=== PATIENT | female | born 1985 | race Caucasian/White ===

== ENCOUNTER 2023-04-27 13:56 | Emergency (ER) | payer BC, SELFPAY ==
[2023-04-27 14:06] VITALS: BP 128/94; PULSE 132; RESP 24; TEMP 36.6; O2SAT 98; BMI 30.8
--- NOTE | 2023-04-27 14:17 | US_ITS ---
[address] [address] Patient Name: ANTONIA DE LOS SANTOS MRN: [id number] date: 1985 Sex: F Assigned Patient Location: ER Current Patient Location: ER Accession/Order Number: [id number] Exam Date: 04/27/2023 14:30 Report Date: 04/27/2023 15:28 At the request of: HARRISON MIN Procedure: US pelvis transvaginal EXAM: Pelvic ultrasound ultrasound CLINICAL INDICATION: Left ovarian torsion. COMPARISON: Ultrasound dated 07/28/2022 TECHNIQUE: Transvaginal pelvic ultrasound was performed with grayscale and color Doppler images were obtained. FINDINGS: Uterus: Uterus measures 7.1 x 5.0 x 3.8 cm. No abnormal uterine masses. Endometrium measures 8 mm thickness. Right ovary: Measures 2.7 x 1.7 x 2.4 cm. Normal color flow and Doppler arterial and venous waveforms. No ovarian masses. 1.6 cm dominant right ovarian follicle. 2.1 cm left ovarian cyst. Left ovary: Measures 3.5 x 1.3 x 2.5 cm. Normal color flow and Doppler arterial and venous waveforms. No ovarian masses. No free fluid in the pelvis. US/US pelvis transvaginal IMPRESSION: No acute sonographic abnormalities in the pelvis. Electronically authenticated by: GERALD SCALES Date: 04/27/2023 15:28
--- NOTE | 2023-04-27 14:19 | ED_ITS ---
HPI - Abdominal Pain General Chief Complaint: Abdominal Pain Stated Complaint: ABDOMINAL PAIN Time Seen by Provider: 04/27/23 14:02 Source: patient Mode of arrival: walk-in Limitations: no limitations History of Present Illness HPI narrative: patient is a 38 year old female who presents to the emergency department for a one hour history of pain in the left lower quadrant. She states she has a history of ovarian cyst and has required surgery for ruptured ovarian cyst three times in the past. Most recent surgery was three years ago. she currently sees an [employer] at the [facility]. She denies fevers, chills, vomiting, diarrhea. She has had no urinary symptoms. Pain is in the left lower quadrant radiating to the left flank. She states this pain is similar to ovarian cyst pain she has had in the past. Patient is visibly uncomfortable at initial interview. Related Data Previous Rx's Medication Instructions Recorded hydrocodone 5 mg-acetaminophen 325 1 tab PO Q4H PRN pain #12 tabs 04/27/23 mg tablet ketorolac 10 mg tablet 10 mg PO TID PRN pain #10 tabs 04/27/23 ondansetron 4 mg disintegrating 4 mg PO Q6H PRN nausea and 04/27/23 tablet vomiting #12 tabs Allergies Allergy/AdvReac Type Severity Reaction Status Date / Time morphine Allergy Severe Verified 04/27/23 14:06 Review of Systems ROS Constitutional Denies: fever or chills Cardiovascular Denies: chest pain Respiratory Denies: shortness of breath or cough Gastrointestinal Reports: abdominal pain; Denies: nausea, vomiting or diarrhea Genitourinary Denies: painful urination Musculoskeletal Reports: back pain Integumentary/Breast Denies: rash Neurological Denies: headache PFSH PFSH Social History Smoking status: Never smoker Exam Narrative Exam Narrative: Gen.: Awake, alert, in no distress Head: Normocephalic, atraumatic ENT: Moist mucous membranes Respiratory: No respiratory distress Gastrointestinal: Abdomen is soft, nondistended and moderately tender in the left lower quadrant with voluntary guarding, left flank tenderness with no CVA tenderness Extremities: Moves extremities equally Psych: Normal mood and affect Neuro: No focal neuro deficit Skin: Warm, dry, intact Constitutional Vital Signs, click to edit/add: Last Vital Signs Temp 97.9 F 04/27/23 14:06 Pulse 99 H 04/27/23 15:37 Resp 20 04/27/23 15:37 BP 120/83 04/27/23 15:37 Pulse Ox 98 04/27/23 15:37 O2 Del Method Room Air 04/27/23 14:06 Course Vital Signs Vital signs: Vital Signs Temperature 97.9 F 04/27/23 14:06 Pulse Rate 132 H 04/27/23 14:06 Respiratory Rate 24 04/27/23 14:06 Blood Pressure 128/94 H 04/27/23 14:06 Pulse Oximetry 98 04/27/23 14:06 Oxygen Delivery Method Room Air 04/27/23 14:06 Temperature 97.9 F 04/27/23 14:06 Pulse Rate 99 H 04/27/23 15:37 Respiratory Rate 20 04/27/23 15:37 Blood Pressure 120/83 04/27/23 15:37 Pulse Oximetry 98 04/27/23 15:37 Oxygen Delivery Method Room Air 04/27/23 14:06 MDM - Abdominal Pain MDM Narrative Medical decision making narrative: lab studies, urine specimen and test all negative. Patient with improved vital signs after IV fluids, Dilaudid, Toradol, Zofran. Ultrasound shows no evidence of ovarian torsion with good blood flow to both ovaries and a 2.1 cm complex cyst in the left ovary. Patient remedicated for pain and will be discharged home to follow-up with [employer]. Patient reexamined by attending physician prior to discharge, abdomen is soft and benign. Return to the Emergency Room if symptoms change or worsen. Medical Records Attestation: I reviewed the patient's medical records. Lab Data Attestation: I reviewed the patient's lab results. Labs: Lab Results 04/27/23 04/27/23 Range/Units 14:20 14:45 WBC 5.7 (4.0-11.0) 10^3/uL RBC 3.77 L (4.20-5.40) 10^6/uL Hgb 11.1 L (12.0-16.0) g/dL Hct 31.5 L (36.0-48.0) % MCV 83.6 (81.0-99.0) fL MCH 29.4 (26.7-34.0) pg MCHC 35.2 (29.9-35.2) g/dL RDW 17.4 H (11.0-15.0) % Plt Count 408 (150-450) 10^3/uL MPV 9.8 (9.5-13.5) fL Neut % (Auto) 44.4 (43.0-75.0) % Lymph % (Auto) 47.3 (20.5-60.0) % [place] % (Auto) 6.5 (1.7-12.0) % Eos % (Auto) 1.1 (0.9-7.0) % Baso % (Auto) 0.5 (0.2-2.0) % Neut # (Auto) 2.5 (1.4-6.5) 10^3/uL Lymph # (Auto) 2.7 (1.2-3.8) 10^3/uL [place] # (Auto) 0.4 (0.3-0.8) 10^3/uL Eos # (Auto) 0.1 (0.0-0.7) 10^3/uL Baso # (Auto) 0.0 (0.0-0.1) 10^3/uL Abs Immat Gran (auto) 0.01 (0.00-0.03) 10^3/uL Imm/Tot Granulo (auto) 0.2 (0.0-0.5) % Sodium 138 (136-145) mmol/L Potassium 3.5 (3.5-5.1) mmol/L Chloride 103 (98-107) mmol/L Carbon Dioxide 23.4 (21.0-32.0) mmol/L Anion Gap 15.1 BUN 4.0 L (7.0-18.0) mg/dL Creatinine 0.86 (0.55-1.02) mg/dL Est GFR ( Amer) >60 (>=60) Est GFR (Non-Af Amer) >60 (>=60) BUN/Creatinine Ratio 4.7 Glucose 112 H (74-106) mg/dL Lactate 1.9 (0.4-2.0) mmol/L Calcium 8.8 (8.5-10.1) mg/dL Total Bilirubin 0.5 (0.2-1.0) mg/dL AST <5 L (15-37) U/L ALT 10 L (14-59) U/L Alkaline Phosphatase 69 (46-116) U/L Total Protein 7.8 (6.4-8.2) g/dL Albumin 3.7 (3.4-5.0) g/dL Globulin 4.1 g/dL Albumin/Globulin Ratio 0.9 Serum HCG, Qual Negative (NEGATIVE) Urine Color Lt. yellow (YELLOW) Urine Clarity Clear (CLEAR) Urine pH 6.0 (5.0-9.0) Ur Specific [place] 1.010 (1.005-1.025) Urine Protein Negative (NEG/TRACE) mg/dL Urine Glucose (UA) Negative (NEGATIVE) mg/dL Urine Ketones Negative (NEGATIVE) mg/dL Urine Occult Blood Negative (NEGATIVE) Urine Nitrite Negative (NEGATIVE) Urine Bilirubin Negative (NEGATIVE) Urine Urobilinogen 2.0 A (0.2-1.0) EU/dL Ur Leukocyte Esterase Negative (NEGATIVE) Imaging Data US - abdomen: Attestation: I have reviewed the pertinent imaging results. Radiologist's impression: Procedure: US pelvis transvaginal EXAM: Pelvic ultrasound ultrasound CLINICAL INDICATION: Left ovarian torsion. COMPARISON: Ultrasound dated 07/28/2022 TECHNIQUE: Transvaginal pelvic ultrasound was performed with grayscale and color Doppler images were obtained. FINDINGS: Uterus: Uterus measures 7.1 x 5.0 x 3.8 cm. No abnormal uterine masses. Endometrium measures 8 mm thickness. Right ovary: Measures 2.7 x 1.7 x 2.4 cm. Normal color flow and Doppler arterial and venous waveforms. No ovarian masses. 1.6 cm dominant right ovarian follicle. 2.1 cm left ovarian cyst. Left ovary: Measures 3.5 x 1.3 x 2.5 cm. Normal color flow and Doppler arterial and venous waveforms. No ovarian masses. No free fluid in the pelvis. IMPRESSION: No acute sonographic abnormalities in the pelvis. Electronically authenticated by: GERALD SCALES Date: 04/27/2023 15:28 Discharge Plan Discharge Chief Complaint: Abdominal Pain Clinical Impression: Complex cyst of left ovary, Abdominal pain Patient Disposition: Home, Self-Care Time of Disposition Decision: 16:00 Condition: Good Mode of Transportation: Private Vehicle Prescriptions / Home Meds: New hydrocodone-acetaminophen 5-325 mg tablet 1 tab PO Q4H PRN (Reason: pain) Qty: 12 0RF Rx Instructions: DX R10.2 ketorolac 10 mg tablet 10 mg PO TID PRN (Reason: pain) Qty: 10 0RF ondansetron 4 mg tablet,disintegrating 4 mg PO Q6H PRN (Reason: nausea and vomiting) Qty: 12 0RF Instructions: Ovarian Cyst (ED), Abdominal Pain (ED) Additional Instructions: Follow up with your [employer]DER Stand Alone Forms: Portal Instructions Referrals: Physician,Non-Staff, MD [Primary Care Provider] - 1 week
[2023-04-27] MEDS: KETOROLAC TROMETHAMINE 30 MG/ML VIAL IVP (14:27)
[2023-04-27] MEDS: 0.9 % SODIUM CHLORIDE 1,000 ML 999 ML IV (14:28)
[2023-04-27] MEDS: HYDROMORPHONE HCL 1 MG/ML CARTRIDGE IV (14:28)
[2023-04-27] MEDS: ONDANSETRON PF 4 MG/2 ML VIAL IV (14:28)
[2023-04-27 14:39] LABS: Basophils Percent Auto 0.5 % (0.2-2.0); Eosinophils Absolute Auto 0.1 10^3/uL (0.0-0.7); Eosinophils Percent Auto 1.1 % (0.9-7.0); Hematocrit 31.5 % (36.0-48.0); Hemoglobin 11.1 g/dL (12.0-16.0); Immature Granulocytes Abs Auto 0.01 10^3/uL (0.00-0.03); Immature Granulocytes Pct Auto 0.2 % (0.0-0.5); Lymphocytes Absolute Auto 2.7 10^3/uL (1.2-3.8); Lymphocytes Percent Auto 47.3 % (20.5-60.0); Mean Corpuscular HGB Conc 35.2 g/dL (29.9-35.2); Mean Corpuscular Hemoglobin 29.4 pg (26.7-34.0); Mean Corpuscular Volume 83.6 fL (81.0-99.0); Mean Platelet Volume 9.8 fL (9.5-13.5); Monocytes Absolute Auto 0.4 10^3/uL (0.3-0.8); Monocytes Percent Auto 6.5 % (1.7-12.0); Neutrophils Absolute Auto 2.5 10^3/uL (1.4-6.5); Neutrophils Percent Auto 44.4 % (43.0-75.0); Platelet Count 408 10^3/uL (150-450); Red Blood Count 3.77 10^6/uL (4.20-5.40); Red Cell Distribution Width 17.4 % (11.0-15.0); White Blood Count 5.7 10^3/uL (4.0-11.0)
[2023-04-27 14:50] LABS: Lactate/Lactic Acid 1.9 mmol/L (0.4-2.0)
[2023-04-27 14:51] LABS: HCG Qualitative NEGATIVE (NEGATIVE)
[2023-04-27 14:57] LABS: Alanine Aminotransferase 10 U/L (14-59); Albumin Globulin Ratio 0.9; Albumin Level 3.7 g/dL (3.4-5.0); Alkaline Phosphatase 69 U/L (46-116); Anion Gap 15.1; Aspartate Amino Transferase <5 U/L (15-37); BUN Creatinine Ratio 4.7; Bilirubin Total 0.5 mg/dL (0.2-1.0); Calcium 8.8 mg/dL (8.5-10.1); Carbon Dioxide 23.4 mmol/L (21.0-32.0); Chloride 103 mmol/L (98-107); Estimated GFR (African America >60 (>=60); Estimated GFR (Non-African Ame >60 (>=60); Globulin 4.1 g/dL; Glucose 112 mg/dL (74-106); Potassium 3.5 mmol/L (3.5-5.1); Sodium 138 mmol/L (136-145); Total Protein 7.8 g/dL (6.4-8.2)
[2023-04-27 15:17] LABS: Bilirubin Urine NEGATIVE (NEGATIVE); Blood Urine NEGATIVE (NEGATIVE); Clarity Urine CLEAR (CLEAR); Color Urine LT. YELLOW (YELLOW); Glucose Urine UA NEGATIVE (NEGATIVE); Ketones Urine NEGATIVE (NEGATIVE); Leukocyte Esterase Urine NEGATIVE (NEGATIVE); Nitrite Urine NEGATIVE (NEGATIVE); Protein Urine NEGATIVE (NEG/TRACE)
[2023-04-27 15:19] LABS: Urine Microscopic Indicated NO
[2023-04-27] MEDS: HYDROMORPHONE HCL 0.5 MG/0.5 ML SYRINGE IV (15:35)
[2023-04-27 15:37] VITALS: BP 120/83; PULSE 99; RESP 20; O2SAT 98
== END 2023-04-27 16:09 | disposition home or self-care (01) ==
PROVIDERS: Physician Assistant; Emergency Provider Emergency Medicine
DX: N83.292 Other ovarian cyst, left side (principal); R10.32 Left lower quadrant pain
CPT/HCPCS: 36415; 76830; 80053; 81003; 83605; 84703; 85025; 96374; 96375; 96376; 99285; J1170

== ENCOUNTER 2023-05-04 18:39 | Emergency (ER) | payer BC, SELFPAY ==
[2023-05-04 18:43] VITALS: BP 135/88; PULSE 111; RESP 20; TEMP 36.6; O2SAT 98; BMI 30.8
--- NOTE | 2023-05-04 20:23 | ED.DENTAL1 ---
HPI - Dental/Oral General Chief complaint: Dental/Oral Stated complaint: DENTAL PAIN Time Seen by Provider: 05/04/23 20:23 Source: patient Mode of arrival: walk-in Limitations: no limitations History of Present Illness HPI Narrative: 38 year old female presents to the ED for right lower dental pain. Onset was 2-3 days ago. It became worse today. She has tried Tylenol and Motrin without relief. She has a dentist appointment next week. Denies fever, chills, injury, SOB, difficulty swallowing. Rates her pain 01/20. Denies chance of . Related Data Previous Rx's Medication Instructions Recorded hydrocodone 5 mg-acetaminophen 325 1 tab PO Q4H PRN pain #12 tabs 04/27/23 mg tablet ketorolac 10 mg tablet 10 mg PO TID PRN pain #10 tabs 04/27/23 ondansetron 4 mg disintegrating 4 mg PO Q6H PRN nausea and 04/27/23 tablet vomiting #12 tabs hydrocodone 5 mg-acetaminophen 325 1 tab PO Q8H PRN pain 4 days #12 05/04/23 mg tablet tabs penicillin V potassium 500 mg 500 mg PO Q6H 10 days #40 tabs 05/04/23 tablet Allergies Allergy/AdvReac Type Severity Reaction Status Date / Time morphine Allergy Severe Verified 04/27/23 14:06 Review of Systems ROS Constitutional Denies: fever or chills Ears, nose, mouth, and throat Reports: other (Dental pain); Denies: throat pain or neck pain Cardiovascular Denies: chest pain Respiratory Denies: shortness of breath Integumentary/Breast Denies: rash Neurological Denies: headache PFSH PFSH Social History Smoking status: Never smoker Exam Constitutional Vital Signs, click to edit/add: Last Vital Signs Temp 97.8 F 05/04/23 18:43 Pulse 111 H 05/04/23 18:43 Resp 20 05/04/23 18:43 BP 135/88 05/04/23 18:43 Pulse Ox 98 05/04/23 18:43 O2 Del Method Room Air 05/04/23 18:43 Common normals: no apparent distress and oriented x3 General appearance: cooperative HENMT Face and sinus: normal facial exam Nose: external nose normal Mouth: oral and palatal mucosa normal, lip normal and tongue normal; no drooling Teeth and gingiva: caries and other (No drainable abscess noted. No swelling, drainage noted near teeth 30 & 31) Other: No facial swelling. No swelling to floor of mouth. Pt speaking in full sentences, handling secretions well. Eye Common normals: conjunctivae normal and no scleral icterus Neck & C-Spine Common normals: supple Chest Chest: symmetrical chest wall rise Respiratory Common normals: normal respiratory effort Effort & inspection: able to speak in complete sentences and symmetric chest movement Cardio Common normals: regular rate Neuro Common normals: oriented x3 and moves all extremities Sensorium/orientation: awake and alert Course Vital Signs Vital signs: Vital Signs Temperature 97.8 F 05/04/23 18:43 Pulse Rate 111 H 05/04/23 18:43 Respiratory Rate 20 05/04/23 18:43 Blood Pressure 135/88 05/04/23 18:43 Pulse Oximetry 98 05/04/23 18:43 Oxygen Delivery Method Room Air 05/04/23 18:43 Temperature 97.8 F 05/04/23 18:43 Pulse Rate 111 H 05/04/23 18:43 Respiratory Rate 20 05/04/23 18:43 Blood Pressure 135/88 05/04/23 18:43 Pulse Oximetry 98 05/04/23 18:43 Oxygen Delivery Method Room Air 05/04/23 18:43 MDM - Dental/Oral MDM Narrative Medical decision making narrative: OARRS was reviewed. Prescriptions were provided for PCN and norco. She has Motrin at home. She was medicated for her discomfort here. Follow up with the dentist next week as scheduled. Return precautions were discussed. Differential Diagnosis Differential diagnosis: Likely gingival abscess, dental caries, toothache and dental abscess Medical Records Attestation: I reviewed the patient's medical records. Discharge Plan Discharge Chief Complaint: Dental/Oral Clinical Impression: Toothache Patient Disposition: Home, Self-Care Time of Disposition Decision: 20:34 Condition: Good Mode of Transportation: Private Vehicle Prescriptions / Home Meds: New penicillin V potassium 500 mg tablet 500 mg PO Q6H 10 Days Qty: 40 0RF hydrocodone-acetaminophen 5-325 mg tablet 1 tab PO Q8H PRN (Reason: pain) 4 Days Qty: 12 0RF No Action hydrocodone-acetaminophen 5-325 mg tablet 1 tab PO Q4H PRN (Reason: pain) Qty: 12 0RF Rx Instructions: DX R10.2 ketorolac 10 mg tablet 10 mg PO TID PRN (Reason: pain) Qty: 10 0RF ondansetron 4 mg tablet,disintegrating 4 mg PO Q6H PRN (Reason: nausea and vomiting) Qty: 12 0RF Instructions: Toothache (ED) Additional Instructions: Follow up with your dentist next week as scheduled. Stand Alone Forms: Portal Instructions Referrals: Physician,Non-Staff, MD [Primary Care Provider] - 1 week Discharge Date/Time: 05/04/23 21:05
--- NOTE | 2023-05-04 20:37 | PC.NURSE ---
Patient states she has had right lower dental pain for 3 days. has called her dentist and they cannot get her in until the middle of next week. patient has also called her family physician. states she believes she has a cavity in the back bottom tooth.pain radiates to right ear and down right jaw. has tried tylenol, motrin, and Orajel with no relief. light swelling to lower right jaw. no broken teeth seen.
[2023-05-04] MEDS: PENICILLIN V POTASSIUM 250 MG TABLET 500 MG PO (21:03)
[2023-05-04] MEDS: KETOROLAC TROMETHAMINE 30 MG/ML VIAL IM (21:03)
[2023-05-04] MEDS: BENZOCAINE 30 ML, lidocaine HCL 15 ML MM (21:04)
== END 2023-05-04 21:05 | disposition home or self-care (01) ==
PROVIDERS: Emergency Provider Emergency Medicine
DX: K08.89 Other specified disorders of teeth and supporting structures (principal)
CPT/HCPCS: 99284

== ENCOUNTER 2023-05-07 22:44 | Emergency (ER) | payer BC, SELFPAY ==
[2023-05-07 23:01] VITALS: BP 128/88; PULSE 125; RESP 20; TEMP 36.7; O2SAT 100
--- NOTE | 2023-05-07 23:18 | CT_ITS ---
The [address] [address] Patient Name: ANTONIA DE LOS SANTOS MRN: [id number] date: 1985 Sex: F Assigned Patient Location: ER Current Patient Location: ER Accession/Order Number: [id number] Exam Date: 05/07/2023 23:59 Report Date: 05/08/2023 01:05 At the request of: ROB HAUSER Procedure: CT abdomen pelvis w con EXAM: CT abdomen pelvis w con HISTORY: left abd pain COMPARISON: CTPA 10/31/2020 TECHNIQUE: CT of abdomen and pelvis with intravenous contrast. Dose reduction techniques were achieved by using automated exposure control and/or adjustment of mA and/or kV according to patient size and/or use of iterative reconstruction technique. FINDINGS: TUBES AND IMPLANTS: None. LOWER CHEST: Small hiatal hernia. ABDOMEN and PELVIS ABDOMINAL WALL AND SOFT TISSUES: Unremarkable. BONES: No suspicious lesions. Multilevel degenerative changes of the spine. ARTERIES: No aortoiliac aneurysm VEINS: Unremarkable. LYMPH NODES: Unremarkable. PERITONEUM/ RETROPERITONEUM: Unremarkable. BOWEL: No obstruction APPENDIX: Unremarkable LIVER: No suspicious lesions. GALLBLADDER: Surgically absent BILE DUCTS: Not dilated SPLEEN: Unremarkable. PANCREAS: Unremarkable. ADRENALS: Unremarkable. KIDNEYS/ URETERS: Unremarkable. REPRODUCTIVE ORGANS: Bilateral ovaries demonstrate multiple cysts. Unremarkable appearance of the uterus URINARY BLADDER: Unremarkable. CT/CT abdomen pelvis w con IMPRESSION: No evidence of acute abdominopelvic process. Small hiatal hernia. Electronically authenticated by: DENNY NAJERA Date: 05/08/2023 01:05
--- NOTE | 2023-05-07 23:20 | ED.ABDPAIN1 ---
HPI - Abdominal Pain General Chief Complaint: Abdominal Pain Stated Complaint: Abdominal Pain Time Seen by Provider: 05/07/23 22:54 Source: patient Mode of arrival: walk-in History of Present Illness HPI narrative: Patient was diagnosed with 2cm left ovarian cyst on 04/27/23 when I saw the patient along with Shanae Rankin. She now returns to our ED complaining of continued pain in the same area. She has had no improvement after taking Calhoun and NSAIDs previously prescribed. Of note, she got a 4 days supply of Calhoun on 05/04/[address] Joseph. She told me that she sees a [employer]ISTANT [employer] in [place] and had ovarian cyst removal at [facility] with Dr Quesada, previously. She is not scheduled to see her [employer] until next month. She said that she previously saw Dr Hirsch and that he sent her to [facility] because the cyst was so large . It was determined that she has endometriosis, she told me. Related Data Home Medications Medication Instructions Recorded Confirmed alprazolam 0.25 mg tablet mg 05/07/23 citalopram 20 mg tablet mg 05/07/23 Previous Rx's Medication Instructions Recorded hydrocodone 5 mg-acetaminophen 325 1 tab PO Q4H PRN pain #12 tabs 04/27/23 mg tablet nabumetone 750 mg tablet 750 mg PO Q12H PRN pain #20 tabs 05/08/23 Allergies Allergy/AdvReac Type Severity Reaction Status Date / Time morphine Allergy Severe Verified 05/07/23 23:07 prochlorperazine AdvReac Mild Verified 05/07/23 23:07 [From Compazine] [facility] Social History Smoking status: Never smoker Exam Narrative Exam Narrative: Nurses notes and vital signs reviewed and patient is not hypoxic. afebrile General: Uncomfortable. Skin: Warm, dry, no pallor noted. No rash to abdomen. Eye: Pupils are equal, round and EOMI. No scleral icterus. Cardiovascular: Regular Rate and Rhythm without murmur, gallop or rub. Respiratory: No accessory muscle use or respiratory distress. Lungs are clear to auscultation, no wheezing, rales or rhonchi Back: No CVA tenderness Musculoskeletal: normal ROM GI: Abdomen is soft, non-distended. Normal bowel sounds. No masses appreciated. LLQ tenderness to palpation. No rebound, guarding, or rigidity noted. Neurological: A&O x4. No cranial nerve dysfunction observed. No truncal ataxia. Moves all extremities. Sensation intact. Psychiatric: Cooperative and interactive. Normal mood and affect. Constitutional Vital Signs, click to edit/add: Last Vital Signs Temp 98.0 F 05/07/23 23:01 Pulse 125 H 05/07/23 23:01 Resp 20 05/07/23 23:01 BP 128/88 05/07/23 23:01 Pulse Ox 100 05/07/23 23:01 Course Vital Signs Vital signs: Vital Signs Temperature 98.0 F 05/07/23 23:01 Pulse Rate 125 H 05/07/23 23:01 Respiratory Rate 20 05/07/23 23:01 Blood Pressure 128/88 05/07/23 23:01 Pulse Oximetry 100 05/07/23 23:01 Temperature 98.0 F 05/07/23 23:01 Pulse Rate 125 H 05/07/23 23:01 Respiratory Rate 20 05/07/23 23:01 Blood Pressure 128/88 05/07/23 23:01 Pulse Oximetry 100 05/07/23 23:01 MDM - Abdominal Pain MDM Narrative Medical decision making narrative: Blood testing unremarkable. CT abd/pelvis also does not indicate the reason for the patient's pain. She and I discussed her results. Patient is concerned that it might be endometriosis - I informed her that I would not be able to see endometriosis on US or CT. She asked for referral information for a local [employer] to discuss hormone therapy/BCPs for endometriosis =- she had previously tried that but did not tolerate the side effects of the BCPs. She was discharged home with prescription for Relafen. Lab Data Attestation: I reviewed the patient's lab results. Labs: Lab Results 05/07/23 Range/Units 23:30 WBC 7.6 (4.0-11.0) 10^3/uL RBC 4.01 L (4.20-5.40) 10^6/uL Hgb 11.5 L (12.0-16.0) g/dL Hct 34.3 L (36.0-48.0) % MCV 85.5 (81.0-99.0) fL MCH 28.7 (26.7-34.0) pg MCHC 33.5 (29.9-35.2) g/dL RDW 19.0 H (11.0-15.0) % Plt Count 556 H (150-450) 10^3/uL MPV 9.6 (9.5-13.5) fL Neut % (Auto) 53.1 (43.0-75.0) % Lymph % (Auto) 38.4 (20.5-60.0) % [place] % (Auto) 7.2 (1.7-12.0) % Eos % (Auto) 0.5 L (0.9-7.0) % Baso % (Auto) 0.7 (0.2-2.0) % Neut # (Auto) 4.0 (1.4-6.5) 10^3/uL Lymph # (Auto) 2.9 (1.2-3.8) 10^3/uL [place] # (Auto) 0.6 (0.3-0.8) 10^3/uL Eos # (Auto) 0.0 (0.0-0.7) 10^3/uL Baso # (Auto) 0.1 (0.0-0.1) 10^3/uL Abs Immat Gran (auto) 0.01 (0.00-0.03) 10^3/uL Imm/Tot Granulo (auto) 0.1 (0.0-0.5) % Sodium 139 (136-145) mmol/L Potassium 3.8 (3.5-5.1) mmol/L Chloride 103 (98-107) mmol/L Carbon Dioxide 26.6 (21.0-32.0) mmol/L Anion Gap 13.2 BUN 7.0 (7.0-18.0) mg/dL Creatinine 0.79 (0.55-1.02) mg/dL Est GFR ( Amer) >60 (>=60) Est GFR (Non-Af Amer) >60 (>=60) BUN/Creatinine Ratio 8.9 Glucose 85 (74-106) mg/dL Calcium 9.3 (8.5-10.1) mg/dL Imaging Data CT scan - abdomen: Radiologist's impression: Patient Name: ANTONIA DE LOS SANTOS MRN: [facility]:[id number] date: 1985 Sex: F Assigned Patient Location: ER Current Patient Location: ER Accession/Order Number: [id number] Exam Date: 05/07/2023 23:59 Report Date: 05/08/2023 01:05 At the request of: ROB HAUSER Procedure: CT abdomen pelvis w con EXAM: CT abdomen pelvis w con HISTORY: left abd pain COMPARISON: CTPA 10/31/2020 TECHNIQUE: CT of abdomen and pelvis with intravenous contrast. Dose reduction techniques were achieved by using automated exposure control and/or adjustment of mA and/or kV according to patient size and/or use of iterative reconstruction technique. FINDINGS: TUBES AND IMPLANTS: None. LOWER CHEST: Small hiatal hernia. ABDOMEN and PELVIS ABDOMINAL WALL AND SOFT TISSUES: Unremarkable. BONES: No suspicious lesions. Multilevel degenerative changes of the spine. ARTERIES: No aortoiliac aneurysm VEINS: Unremarkable. LYMPH NODES: Unremarkable. PERITONEUM/ RETROPERITONEUM: Unremarkable. BOWEL: No obstruction APPENDIX: Unremarkable LIVER: No suspicious lesions. GALLBLADDER: Surgically absent BILE DUCTS: Not dilated SPLEEN: Unremarkable. PANCREAS: Unremarkable. ADRENALS: Unremarkable. KIDNEYS/ URETERS: Unremarkable. REPRODUCTIVE ORGANS: Bilateral ovaries demonstrate multiple cysts. Unremarkable appearance of the uterus URINARY BLADDER: Unremarkable. IMPRESSION: No evidence of acute abdominopelvic process. Small hiatal hernia. Electronically authenticated by: DENNY NAJERA Date: 05/08/2023 01:05 Discharge Plan Discharge Chief Complaint: Abdominal Pain Clinical Impression: Abdominal pain Patient Disposition: Home, Self-Care Time of Disposition Decision: 01:13 Prescriptions / Home Meds: New nabumetone 750 mg tablet 750 mg PO Q12H PRN (Reason: pain) Qty: 20 0RF No Action hydrocodone-acetaminophen 5-325 mg tablet 1 tab PO Q4H PRN (Reason: pain) Qty: 12 0RF Rx Instructions: DX R10.2 alprazolam 0.25 mg tablet citalopram 20 mg tablet Instructions: Abdominal Pain (ED) Stand Alone Forms: Portal Instructions Referrals: Esequiel Tucker MD [Physician] - As soon as possible Tarun Braden DO [Physician] - As soon as possible
--- NOTE | 2023-05-07 23:42 | PC.NURSE ---
Pt presents to ER for stabbing like left sided abdominal pain pt states she has a long history of endometriosis and she knows this is a flare up pt states she took Tylenol and Motrin as well as 1 [place] at home with not relief Pt states she has an appointment next month with the Gyno
[2023-05-07 23:46] LABS: Basophils Absolute Auto 0.1 10^3/uL (0.0-0.1); Basophils Percent Auto 0.7 % (0.2-2.0); Eosinophils Percent Auto 0.5 % (0.9-7.0); Hematocrit 34.3 % (36.0-48.0); Hemoglobin 11.5 g/dL (12.0-16.0); Immature Granulocytes Abs Auto 0.01 10^3/uL (0.00-0.03); Immature Granulocytes Pct Auto 0.1 % (0.0-0.5); Lymphocytes Absolute Auto 2.9 10^3/uL (1.2-3.8); Lymphocytes Percent Auto 38.4 % (20.5-60.0); Mean Corpuscular HGB Conc 33.5 g/dL (29.9-35.2); Mean Corpuscular Hemoglobin 28.7 pg (26.7-34.0); Mean Corpuscular Volume 85.5 fL (81.0-99.0); Mean Platelet Volume 9.6 fL (9.5-13.5); Monocytes Absolute Auto 0.6 10^3/uL (0.3-0.8); Monocytes Percent Auto 7.2 % (1.7-12.0); Neutrophils Percent Auto 53.1 % (43.0-75.0); Platelet Count 556 10^3/uL (150-450); Red Blood Count 4.01 10^6/uL (4.20-5.40); White Blood Count 7.6 10^3/uL (4.0-11.0)
[2023-05-07 23:49] LABS: Anion Gap 13.2; BUN Creatinine Ratio 8.9; Calcium 9.3 mg/dL (8.5-10.1); Carbon Dioxide 26.6 mmol/L (21.0-32.0); Chloride 103 mmol/L (98-107); Estimated GFR (African America >60 (>=60); Estimated GFR (Non-African Ame >60 (>=60); Glucose 85 mg/dL (74-106); Potassium 3.8 mmol/L (3.5-5.1); Sodium 139 mmol/L (136-145)
[2023-05-07] MEDS: KETOROLAC TROMETHAMINE 30 MG/ML VIAL IVP (23:49)
[2023-05-07] MEDS: 0.9 % SODIUM CHLORIDE 1,000 ML 999 ML IV (23:49)
[2023-05-08 01:03] LABS: Bilirubin Urine NEGATIVE (NEGATIVE); Blood Urine NEGATIVE (NEGATIVE); Clarity Urine CLEAR (CLEAR); Color Urine LT. YELLOW (YELLOW); Glucose Urine UA NEGATIVE (NEGATIVE); Ketones Urine NEGATIVE (NEGATIVE); Leukocyte Esterase Urine SMALL (NEGATIVE); Nitrite Urine NEGATIVE (NEGATIVE); Protein Urine NEGATIVE (NEG/TRACE); Specific Gravity Urine <=1.005 (1.005-1.025); Urobilinogen Urine 0.2 EU/dL (0.2-1.0)
[2023-05-08 02:17] LABS: Urine Microscopic Indicated YES
[2023-05-08 02:18] LABS: Bacteria Urine NONE SEEN #/HPF (NONE SEEN); Cast Seen? NONE SEEN #/LPF (NONE SEEN); Crystals Seen? None Seen #/HPF (None Seen); Mucus Urine NONE SEEN (NONE SEEN); RBC Urine 0-2 #/HPF (0-2); Squamous Epithelial Cell Urine NONE SEEN #/LPF (NONE/RARE); WBC Urine 0-2 #/HPF (NONE SEEN)
== END 2023-05-08 01:56 | disposition home or self-care (01) ==
PROVIDERS: Emergency Provider Emergency Medicine
DX: R10.9 Unspecified abdominal pain (principal); Z79.899 Other long term (current) drug therapy
CPT/HCPCS: 36415; 74177; 80048; 81001; 85025; 96374; 99284; Q9967

== ENCOUNTER 2023-09-19 23:06 | Observation (INO) | payer BC, SELFPAY ==
--- OUTSIDE RECORDS SUMMARY | 2023-09-19 23:17 | XMS_ITS | CCD ---
Author Organization [facility] Care Team Providers Care Director Veterinary Name Role Phone DO Jennifer Duran Primary Care Provider DO Augustus Santiago Attending Provider [phone] DO Amaury Barlow Emergency Provider Jennifer Duran Primary Care Physician Jennifer Duran Unavailable DO Jennifer Duran Primary Care Provider [phone] DO Jennifer Duran Attending Provider [phone] Jennifer Duran DO Primary Care Provider Jennifer Duran DO Unavailable Didier BARNETT, Penola P Unavailable Jennifer Duran DO Primary Care Provider Jennifer Duran DO Unavailable DO Jennifer Duran Primary Care Provider [phone] DO Jennifer Duran Attending Provider MD Yevgeniy Cabrera Jr Emergency Provider DO Kiko Saenz Admit Provider DO Kiko Saenz Attending Provider Jennifer Duran DO Primary Care Provider [phone] Jennifer Duran DO Unavailable Didier BARNETT, Penola P Unavailable JENNIFER DURAN Primary Care Unavailable GIL NI Referring Unavailable GIL NI Referring Unavailable JENNIFER DURAN Primary Care Unavailable GIL NI Attending Unavailable JENNIFER DURAN Referring Unavailable JENNIFER DURAN Primary Care Unavailable SABA REYNOLDS Referring Unavailable JENNIFER DURAN Primary Care Unavailable BELKIS SANDOVAL Admitting Unavailable DR JENNIFER DURAN Primary Care Unavailable MARTITA, DR JASMIN Rosenbaum Consulting Unavailabl e BELKIS SANDOVAL Attending Unavailable KIMMIE, DR AUBREY Varghese Consulting Unavailable BELKIS SANDOVAL Consulting Unavailable DO Jennifer Duran Primary Care Provider Manuel, DO Elier Leos Emergency Provider DO Ming Childress Emergency Provider MD Megan Garcia Admit Provider MD Megan Muniz Attending Provider DO Kiko Saenz Other Provider MD Christi Aquino Attending Provider DO Jaime Aleman Attending Provider [phone] [facility] Primary Care Physician Unavailab le DO Jennifer Duran Primary Care Provider DO Elier Jackson Emergency Provider DO Jaime Aleman Attending Provider DO Ming Childress Emergency Provider UnaMD Megan Gongora Admit Provider MD Christi Aquino Attending Provider ViscDO Kiko landeros Other Provider NO FAMILY, PHYSICIAN Primary Care Provider Unava ilable JACY SALDANA Attending Unavailable MD SEN BRENT Attending Unavailable JENNIFER DURAN Primary Care Unavailable Jennifer Duran Primary Care Unavailable Jaime Aleman Admitting Unavailable Jaime Aleman Attending Unavailable Kiko Saenz Consulting Unavailable Jennifer Duran Primary Care Unavailable Christi Aquino Attending Unavailable Megan Muniz Admitting Unavailable Jennifer Duran Primary Care Unavailable Ming Childress Admitting Unavailable Ming Childress Attending Unavailable Elier Jackson Admitting Unavailable Elier Jackson Attending Unavailable NO FAMILY, PHYSICIAN Primary Care Unavailable Jennifer Duran Primary Care Unavailable Elier Jackson Admitting Unavailable Elier Jackson Attending Unavailable DO Elier Jackson Emergency Provider NONE, XXXX Primary Care Physician Unavailab DESTINI Sheehan Attending Unavailable Jignesh Dumont Attending Unavailable Ritesh Heath Attending Unavailable Jignesh Dumont Attending Unavailable Allergies Allergy Classification Reported Allergen(s) Allergy Type Date of Onset Reaction(s) Facility (13 sources) Morphine; Translations: [MORPHINE] Drug Allergy 9 Other: See Comments, Itching (finding) [facility] (18 sources) Atenolol Drug Allergy 3 Dr. Cantu/ [facility] (6 sources) seasoninig Propensity to adverse reactions Unknown [facility] Other (1 source) Morphine Drug Allergy 3 [facility] (12 sources) Seasonal allergy Propensity to adverse reactions 3 Unknown [facility] (1 source) Morphine Drug Allergy 3 [facility] (2 sources) Prochlorperazin e; Translations: [prochlorperazi ne] Drug Allergy Feeling nervous (finding) [facility] (1 source) No Known Medication Allergies; Translations: [No Known Medication Allergies] Propensity to adverse reactions (disorder) [facility] Medications Current Medications Medication Drug Class(es) Dates Sig (Normalized) Sig (Original) acetaminophen 325 mg / oxyCODONE hydrochloride 5 mg oral tablet (13 sources) Opioid Agonist Start: 07-31-2023 End: 08-03-2023 Percocet 5 mg-325 mg oral tablet 1 tab(s), Oral, q6hr Pain 8-10 for 3 day(s), 12 tab(s), Refill(s) 0, [id number], 165.1, cm, 07/31/23 15:42:00 EST, Height/Length Dosing, 82.9, kg, 07/31/23 15:42:00 EST, Weight Dosing Start Date: 07/31/23 Stop Date: 08/03/23 Status: Ordered Start: 03-29-2023 End: 04-30-2023 take 1 tablet by mouth every eight hours Oxycodone-Acetaminophen (Endocet) 5-325 mg tablet Discontinued 1 TAB PO Q8H 20 March 29, 2023 April 30, 2023 5:33pm Start: 02-06-2023 End: 03-29-2023 take 1 tablet by mouth every four to six hours Oxycodone-Acetaminophen (Percocet) 5-325 mg tablet Discontinued 1 TAB PO EVERY 4-6 HOURS 03 18February 06, 2023 March 29, 2023 12:48am ALPRAZolam 0.25 mg oral tablet (20 sources) Benzodiazepine Start: 01-12-2023 Xanax 0.25 MG 1 tablet Orally q8-12 hrs prn anxiety for 8 days Jan, Active Start: 12-04-2021 End: 03-29-2023 take 1 tablet by mouth once daily Alprazolam (Xanax) 0.25 mg tablet Discontinued 0.25 MG PO Daily April 28, 2022 12:00am March 29, 2023 12:48am Start: 12-04-2021 take 0.25 mg by mout h three times daily Alprazolam Active 0.25 MG PO Three times daily March 28, 2023 11:00pm Start: 03-12-2019 Xanax 0.5 MG 1 /2 tablet Orally q8-12 hrs prn anxiety Feb, Active Start: 03-12-2019 Xanax 0.25 MG 1 tablet Orally q8-12 hrs prn anxiety for 8 days Feb, Active Comment on above: TAKE 1 TABLET BY SUMAN TH EVERY 8 TO 12 HOURS NEEDED FOR ANXIETY amoxicillin 80 mg/ml oral suspension (1 source) Penicillin-class Antibacterial Start: 12-05-19 End: 12-15-19 take 1000 mg by mouth every twelve hours amoxicillin 400 mg/5 mL Oral Liq 1,000 mg = 12.5 mL, Oral, q12hr, X 10 day(s), # 250 mL, Refills(s) 0, Pharmacy: [id number], 166, cm, 12/04/21 12:54:00 EDT, Height/Length Dosing, 84, kg, 12/04/21 12:54:00 EDT, Weight Dosing Start Date: 12/04/21 Stop Date: 12/14/21 Status: Ordered amoxicillin 875 mg / clavulanate 125 mg oral tablet (20 sources) Penicillin-class Antibacterial Start: 07-28-19 take 1 tablet by mouth twice daily at mealtime Amoxicillin-Pot Clavulanate Active 1 TAB PO Twice daily 01 04July 28, 2023 12:00am Take with food Start: 04-18-2023 take 10 mL by mouth twice daily Amoxicillin-Pot Clavulanate 600-42.9 MG/5ML 10 ml Orally bid for 10 days Apr, Active Start: 03-02-2023 take 1 tablet by suman th twice daily at mealtime Amoxicillin-Pot Clavulanate 875-125 MG 1 tablet Orally bid with food for 10 days Feb, Active Start: 06-02-2022 take 10 mL by mouth twice daily at mealtime Amoxicillin-Pot Clavulanate 600-42.9 MG/5ML 10 ml Orally bid with food for 10 days May, Active Start: 02-10-2022 take 10 mL by mouth twice daily at mealtime Augmentin ES-600 600 mg-42.9 mg/5 ml 10 ml orally twice a day with food for 10 days Jan, Active Start: 10-16-2021 take 10 mL by mouth twice daily at mealtime Amoxicillin-Pot Clavulanate 600-42.9 MG/5ML 10 ml Orally bid with food for 10 day(s) Patient requested liquid Augmentin due to the size of the tablets October, Active Start: 08-03-2021 take 1 tablet by suman th twice daily at mealtime Amoxicillin-Pot Clavulanate 875-125 MG 1 tablet Orally bid with food for 10 day(s) Jul, Not-Taking aspirin 81 mg oral tablet (13 sources) Platelet Aggregation Inhibitor, Nonsteroidal Anti-inflammatory Drug Start: 05-18-2021 take 1 tablet by mouth once daily at mealtime Aspirin EC 81 MG 1 tablet Orally qd with food May, Active Start: 05-18-2021 take 1 tablet by suman th once daily at mealtime Aspirin EC 81 MG 1 tablet Orally qd with food May, Not-Taking Budesonide / formoterol (13 sources) Corticosteroid, beta2-Adrenergic Agonist Symbicort prn Active Symbicort Active cefdinir 300 mg oral capsule (1 source) Cephalosporin Antibacterial Start: 09-22-2022 take 2 capsules by mouth once daily at mealtime Cefdinir 300 MG 2 capsules Orally qd with food for 10 days Sep, Active citalopram 20 mg oral tablet (20 sources) Serotonin Reuptake Inhibitor Start: 06-20-2019 End: 03-29-2023 take 1 mg by mouth once daily citalopram 20 mg Tab mg tab(s), Oral, Daily, Refills(s) 0 Start Date: 12/04/21 Status: Ordered Comment on above: Take 20 mg by mouth once daily. doxycycline hyclate 100 mg oral capsule (11 sources) Tetracycline-class Drug Start: 04-11-2023 take 1 capsule by mouth every twelve hours Doxycycline Hyclate 100 MG 1 capsule Orally Twice a day for 10 days Mar, Active Start: 06-20-2019 End: 04-28-2022 take 100 mg by mouth twice daily Doxycycline Monohydrate Discontinued 100 MG PO Twice daily June 20, 2019 12:00am April 28, 2022 12:50am ferrous sulfate (20 sources) Start: 07-23-2020 take 1 tablet by suman th every other day Ferrous Sulfate 325 (65 Fe) MG 1 tablet Orally qod Jul, Active Start: 07-23-2020 take 1 tablet by suman th every twenty-four hours Ferrous Sulfate 325 (65 Fe) MG 1 tablet Orally Once a day Jul, Not-Taking Start: 07-23-2020 take 1 tablet by mouth once da alvaro Ferrous Sulfate 325 (65 Fe) MG 1 tablet Orally Once a day Jul, Not-Taking Start: 07-15-2018 End: 06-20-2019 take 325 mg by mouth twice daily Ferrous Sulfate Disco ntinued 325 MG PO Twice daily July 15, 2018 12:00am June 20, 2019 7:08pm homatropine methylbromide 0.3 mg/ml / HYDROcodone bitartrate 1 mg/ml oral solution (20 sources) Opioid Agonist, Cholinergic Muscarinic Agonist Start: 07-28-2023 Hydrocodone-Homatropine (Hycodan) 5-1.5 mg/5 mL (5 mL) syrup Active 5 ML PO Every 6 hours 140 7 July 28, 2023 Start: 06-07-2023 HYDROcodone Bi t-Homatrop MBr 5-1.5 MG/5ML 5 ml Orally every 6 hrs for 7 days May, Active Start: 04-18-2023 HYDROcodone Bi t-Homatrop MBr 5-1.5 MG/5ML 5 ml Orally every 6 hrs for 7 days Apr, Active Start: 04-11-2023 HYDROcodone Bi t-Homatrop MBr 5-1.5 MG/5ML 5 ml Orally every 6 hrs for 7 days Mar, Active Start: 03-02-2023 HYDROcodone Bi t-Homatrop MBr 5-1.5 MG/5ML 5 ml Orally every 6 hrs for 7 days Feb, Active Start: 12-09-2022 HYDROcodone Bi t-Homatrop MBr 5-1.5 MG/5ML 5 mL as needed Orally every 6 hrs for 7 days Nov, Active Start: 12-09-2022 take 5 mL by mouth e very six hours as needed Hycodan Syrup 5mg/1.5 mg 5ml po q 6 hrs prn for 7 days Nov, Active Start: 09-22-2022 HYDROcodone Bi t-Homatrop MBr 5-1.5 MG/5ML 5 mL as needed Orally every 6 hrs for 7 days Sep, Active Start: 02-10-2022 take 5 mL by mouth e very six hours as needed Hycodan Syrup 5mg/1.5 mg 5ml po q 6 hrs prn for 7 days Jan, Active Start: 05-18-2021 take 5 mL by mouth e very six hours as needed Hycodan Syrup 5mg/1.5 mg 5ml po q 6 hrs prn for 7 days May, Not-Taking Start: 05-18-2021 take 5 mL by mouth e very six hours as needed Hycodan Syrup 5mg/1.5 mg 5ml po q 6 hrs prn for 7 days May, Active mupirocin 0.02 mg/mg topical ointment (1 source) RNA Synthetase Inhibitor Antibacterial Start: 12-04-2021 End: 12-14-2021 mupirocin Top 2% Oint 1 luis, Topical, TID for 10 day(s), 22 gm, Refill(s) 0, [id number], 166, cm, 12/04/21 12:54:00 EDT, Height/Length Dosing, 84, kg, 12/04/21 12:54:00 EDT, Weight Dosing Start Date: 12/04/21 Stop Date: 12/14/21 Status: Ordered ondansetron 4 mg oral tablet (11 sources) Serotonin-3 Receptor Antagonist Start: 03-29-2023 take 4 mg by mouth every eight hours Ondansetron Hcl Active 4 MG PO Q8H 15 March 29, 2023 12:00am Start: 09-14-2021 End: 04-28-2022 take 4 mg by mouth three times daily Ondansetron Discontinued 4 MG PO Three times daily 02 13September 13, 2021 11:00pm April 28, 2022 12:50am oxyCODONE hydrochloride 5 mg oral capsule (5 sources) Opioid Agonist Start: 04-24-2023 End: 04-27-2023 oxyCODONE 5 mg Cap 5 mg = 1 cap(s), Oral, q6hr, PRN Pain 8-10, X 3 day(s), # 12 cap(s), Refills(s) 0, Pharmacy: [id number], 165.1, cm, 04/24/23 13:32:00 EST, Height/Length Dosing, 84, kg, 04/24/23 13:32:00 EST, Weight Dosing Start Date: 04/24/23 Stop Date: 04/27/23 Status: Ordered Start: 04-03-2023 End: 04-30-2023 take 5 mg by mouth every four hours Oxycodone Discontinued 5 MG PO Q4H 18 April 03, 2023 April 30, 2023 5:33pm Start: 03-29-2023 take 5 mg by mouth e very six hours Oxycodone Active 5 MG PO Q6H 12 March 29, 2023 Symbicort 80/4.5 inhalation aerosol with adapter (3 sources) Start: 12-04-2021 Symbicort 80/4 .5 inhalation aerosol with adapter Refill(s) 0 Start Date: 12/04/21 Status: Ordered Vitamin C 500 MG (10 sources) Start: 03-25-2020 take 1 tablet by mouth once daily Vitamin C 500 MG 1 tablet Orally Once a day 13 Oct, 2020 Active Womens One Daily - (10 sources) Start: 03-25-2020 Womens One Elle ly - as directed Orally Mar, Active Completed/Discontinued Medications Medication Drug Class(es) Dates Sig (Normalized) Sig (Original) acetaminophen 325 mg / HYDROcodone bitartrate 5 mg oral tablet (10 sources) Opioid Agonist Start: 09-14-2021 End: 04-28-2022 take 1 tablet by mouth three times daily Hydrocodone-Acetami nophen Discontinued 1 TAB PO Three times daily 02 13September 14, 2021 April 28, 2022 12:50am [id number] 200 actuat albuterol 0.09 mg/actuat metered dose inhaler (10 sources) beta2-Adrenergic Agonist Start: 06-20-2019 End: 04-28-2022 take 1 puff(s) by inhalation every four to six hours Albuterol Sulfate Discontinued 2 PUFF INHALATION EVERY 4-6 HOURS June 20, 2019 12:00am April 28, 2022 12:51am atenolol 25 mg oral tablet (12 sources) beta-Adrenergic Graciela Start: 10-20-2020 End: 03-10-2022 atenolol (TENORMIN) 25 mg tablet azithromycin 250 mg oral tablet (10 sources) Macrolide Antimicrobial Start: 04-17-2021 End: 04-28-2022 Azithromycin Discontinued 0 PO .COMPLEX 6 April 16, 2021 11:00pm April 28, 2022 12:50am take 500 mg today (day 1), then 250 mg for 4 days (days 2-5) benzonatate 100 mg oral capsule (5 sources) Non-narcotic Antitussive Start: 08-18-2021 take 2 capsules by mouth three times daily for cough Tessalon Perles 100 MG 2 capsules Orally Three times a day for cough Aug, Not-Taking codeine phosphate 2 mg/ml / guaiFENesin 20 mg/ml oral solution (10 sources) Opioid Agonist Start: 06-20-2019 End: 04-28-2022 take 1 mL by mouth every four to six hours Codeine-Guaifenesin Discontinued 10 ML PO EVERY 4-6 HOURS June 20, 2019 12:00am April 28, 2022 12:50am dextromethorphan hydrobromide 30 mg / pyrilamine maleate 30 mg oral tablet (7 sources) Uncompetitive D-nwcruk-G-[place]part[place] te Receptor Antagonist, Sigma-1 Agonist Start: 08-11-2021 take 1 tablet by mouth every six hours as needed [place] DMT 30-30 MG 1 tablet Orally q6 hrs prn Aug, Not-Taking diphenhydrAMINE hydrochloride 25 mg oral capsule (7 sources) Histamine-1 Receptor Antagonist take 1 capsule by mouth every six hours as needed diphenhydrAMINE (BENADRYL) 25 mg capsule Take 25 mg by mouth every 6 hours as needed. 0 Active Comment on above: Take 25 mg by mouth every 6 hours as needed. HYDROmorphone hydrochloride 2 mg oral tablet (7 sources) Opioid Agonist Start: 04-28-2022 End: 03-29-2023 take 1 tablet by mouth every four hours Hydromorphone (Dilaudid) 2 mg tablet Discontinued 2 MG PO Q4H 30 April 28, 2022 March 29, 2023 12:48am ibuprofen 600 mg oral tablet (9 sources) Nonsteroidal Anti-inflammatory Drug Start: 04-28-2022 End: 03-29-2023 take 600 mg by mouth every six hours Ibuprofen Discontinued 600 MG PO Q6H April 28, 2022 12:00am March 29, 2023 12:48am Start: 07-07-2018 End: 03-10-2022 take 1 tablet by mouth every six hours ibuprofen (MOTRIN) 600 mg tablet Take 1 tablet by mouth every 6 hours. 60 tablet 0 07/07/2018 03/10/2022 Discontinued (Discontinued by Patient) Comment on above: Take 1 tablet by suman th every 6 hours. Multivitamins-Iron tab (7 sources) take 1 tablet by mouth once daily Multivitamins-Iron tab Take 1 tablet by mouth once daily. 0 Active Comment on above: Take 1 tablet by suman th once daily. naproxen 500 mg oral tablet (6 sources) Nonsteroidal Anti-inflammatory Drug Start: 3 End: 3 take 500 mg by mouth twice daily Naproxen Discontinued 500 MG PO Twice daily March 28, 2023 11:00pm April 30, 2023 5:33pm potassium chloride 20 meq extended release oral tablet (9 sources) Start: 2 End: 2 take 20 mEq by mouth once daily Potassium Chloride Discontinued 20 MEQ PO Daily September 13, 2021 11:00pm April 28, 2022 12:50am predniSONE 20 mg oral tablet (20 sources) Start: 2 predniSONE 20 MG take 3 tablets Orally x3 days, then 2 tabs x3 days then 1 tab a day x3 days with food or milk for 9 days Aug, Not-Taking Start: 04-17-2021 End: 04-28-2022 take 50 mg by mouth once daily at mealtime Prednisone Discontinued 50 MG PO Daily 5 April 16, 2021 11:00pm April 28, 2022 12:50am administer with food or milk Start: 06-20-2019 End: 04-28-2022 take 40 mg by mouth once daily Prednisone Discontinued 40 MG PO Daily 10 June 20, 2019 12:00am April 28, 2022 12:50am prochlorperazine 5 mg oral tablet (5 sources) Phenothiazine Start: 03-29-2023 End: 04-30-2023 take 5 mg by mouth every eight hours Prochlorperazine Maleate Discontinued 5 MG PO Q8H 20 March 28, 2023 11:00pm April 30, 2023 5:33pm Problems Active Problems Problem Classification Problem Date Documented Da te Episodic/Chronic Abdominal pain (20 sources) Pain in pelvis; Translations: [Pelvic and perineal pain] Onset: 05-30-2018 07-06-2018 Episodic Anxiety disorders (20 sources) Anxiety; Translations: [Anxiety disorder, unspecified] Onset: 04-21-2021 Resolved: 01-07-2022 Chronic Cardiac dysrhythmias (14 sources) Tachycardia; Translations: [Tachycardia, unspecified] Onset: 04-21-2021 Resolved: 04-21-2021 06-20-2019 Episodic Deficiency and other anemia (12 sources) Iron deficiency anemia due to blood loss; Translations: [Iron deficiency anemia secondary to blood loss (chronic)] Onset: 10-27-2020 Chronic Deficiency and other anemia (1 source) Iron deficiency anemia secondary to blood loss (chronic); Translations: [Iron deficiency anemia due to chronic blood loss] Onset: 10-27-2020 Chronic Deficiency and other anemia (20 sources) Iron deficiency anemia; Translations: [Iron deficiency anemia, unspecified] Episodic Deficiency and other anemia (5 sources) Iron deficiency anemia, unspecified Onset: 04-21-2021 Resolved: 02-16-2022 Episodic Disorders of lipid metabolism (20 sources) Hyperlipidemia; Translations: [Hyperlipidemia, unspecified] Onset: 04-21-2021 Resolved: 04-21-2021 Chronic Endometriosis (10 sources) Endometriosis (clinical); Translations: [Endometriosis, unspecified] Onset: 03-29-2023 03-29-2023 Chronic Fever of unknown origin (3 sources) Fever, unspecified; Translations: [Fever] Episodic Fluid and electrolyte disorders (10 sources) Hypokalemia; Translations: [Hypokalemia] 06-20-2019 Episodic Inflammatory diseases of female pelvic organs (7 sources) Hydrosalpinx; Translations: [Chronic salpingitis] Onset: 05-30-2018 07-06-2018 Chronic Nausea and vomiting (2 sources) Nausea with vomiting, unspecified; Translations: [Nausea] Onset: 05-18-2021 Resolved: 05-18-2021 Episodic Neoplasms of unspecified nature or uncertain behavior (1 source) Thrombocytosis; Translations: [Thrombocytosis] Onset: 06-22-2023 Chronic Other connective tissue disease (1 source) Trochanteric bursitis, right hip Episodic Other gastrointestinal disorders (10 sources) Malabsorption - iron; Translations: [Intestinal malabsorption, unspecified] Onset: 10-27-2020 10-27-2020 Chronic Other gastrointestinal disorders (1 source) Intestinal malabsorption, unspecified; Translations: [Malabsorption of iron] Onset: 10-27-2020 Chronic Other hematologic conditions (1 source) Other abnormality of red blood cells; Translations: [Microcytosis] Onset: 06-22-2023 Episodic Other lower respiratory disease (10 sources) Dyspnea; Translations: [Dyspnea, unspecified] 06-20-2019 Episodic Other lower respiratory disease (2 sources) Cough; Translations: [Acute cough] 07-28-2023 Episodic Other nervous system disorders (20 sources) Paresthesia of upper limb; Translations: [Paresthesia of skin] Episodic Other nutritional; endocrine; and metabolic disorders (1 source) Obese class I; Translations: [Body mass index (BMI) 30.0-30.9, adult] Onset: 12-04-2021 Chronic Other screening for suspected conditions (not mental disorders or infectious disease) (1 source) Other specified abnormal findings of blood chemistry; Translations: [Elevated LFTs] Onset: 06-22-2023 Episodic Other upper respiratory infections (8 sources) Acute sinusitis, unspecified; Translations: [Acute sinusitis] Onset: 10-16-2021 Resolved: 10-16-2021 Episodic Ovarian cyst (20 sources) Cyst of ovary; Translations: [Unspecified ovarian cyst, unspecified side] Onset: 05-30-2018 09-14-2021 Episodic Residual codes; unclassified (1 source) Family history of disorders of kidney and ureter; Translations: [Family history of disorders of kidney and ureter] Onset: 05-30-2023 Episodic Skin and subcutaneous tissue infections (1 source) Impetigo; Translations: [Impetigo, unspecified] Onset: 12-04-2021 Episodic Past or Other Problems Problem Classification Problem Date Documented Da te Episodic/Chronic Other liver diseases (1 source) Abnormal levels of other serum enzymes Onset: 02-16-2022 Resolved: 02-16-2022 Episodic Other lower respiratory disease (1 source) Cough Onset: 08-11-2021 Resolved: 08-11-2021 Episodic Other nutritional; endocrine; and metabolic disorders (1 source) Abnormal weight gain Onset: 04-21-2021 Resolved: 04-21-2021 Episodic Unclassified (8 sources) Cough R05.9 Onset: 05-18-2021 Resolved: 10-16-2021 Viral infection (1 source) COVID-19 Onset: 05-18-2021 Resolved: 05-18-2021 Results Test Name Value Interpretation Reference Range Facility CBC With Platelet and Differ entialon 09-06-2023 Basophils (Bld) [#/Vol] 0.1 10*3/uL Normal 0.0-0.2 [facility] Comment on above: Performed By: #### C BCWD #### [facility] [address] [place] [address] Basophils/100 WBC (Bld) 0.6 % Normal [facility] Comment on above: Performed By: #### C BCWD #### [facility] [address] [facility] [address] Eosinophils (Bld) [#/Vol] 0.1 10*3/uL Normal 0.0-0.7 [facility] Comment on above: Performed By: #### C BCWD #### [facility] [address] [place] [address] Eosinophils/100 WBC (Bld) 0.6 % Normal [facility] Comment on above: Performed By: #### C BCWD #### [facility] [address] [place] [address] Erythrocyte distribution width (RBC) [Ratio] 15.9 % Critically high 11.5-14.5 [facility] Comment on above: Performed By: #### C BCWD #### [facility] [address] [place] [address] Hematocrit (Bld) [Volume fraction] 34.5 % Low 37.0-47.0 [facility] Comment on above: Performed By: #### C BCWD #### [facility] [address] [place] [address] Hemoglobin (Bld) [Mass/Vol] 10.1 g/dL Low 12.0-16.0 [facility] Comment on above: Performed By: #### C BCWD #### [facility] [address] [place] [address] Lymphocytes (Bld) [#/Vol] 4.4 10*3/uL Normal 1.0-4.8 [facility] Comment on above: Performed By: #### C BCWD #### [facility] [address] [place] [address] Lymphocytes/100 WBC (Bld) 54.2 % Normal [facility] Comment on above: Performed By: #### C BCWD #### [facility] [address] [place] [address] MCH (RBC) [Entitic mass] 22.9 pg Low 27.0-31.3 [facility] Comment on above: Performed By: #### C BCWD #### [facility] [address] [place] [address] MCHC 29.3 % Low 33.0-37.0 [facility] Comment on above: Performed By: #### C BCWD #### [facility] [address] [place] [address] MCV (RBC) [Entitic vol] 78.2 fL Low 79.4-94.8 [facility] Comment on above: Performed By: #### C BCWD #### [facility] [address] [place] [address] Monocytes (Bld) [#/Vol] 0.5 10*3/uL Normal 0.2-0.8 [facility] Comment on above: Performed By: #### C BCWD #### [facility] [address] [place] [address] Monocytes/100 WBC (Bld) 6.5 % Normal [facility] Comment on above: Performed By: #### C BCWD #### [facility] [address] [place] [address] Neutrophils (Bld) [#/Vol] 3.1 10*3/uL Normal 1.4-6.5 [facility] Comment on above: Performed By: #### C BCWD #### [facility] [address] [place] [address] Neutrophils/100 WBC (Bld) 37.9 % Normal [facility] Comment on above: Performed By: #### C BCWD #### [facility] [address] [place] [address] Platelets (Bld) [#/Vol] 482 10*3/uL Critically high 130-40 0 [facility] Comment on above: Performed By: #### C BCWD #### [facility] [address] [place] [address] RBC (Bld) [#/Vol] 4.41 10*6/uL Normal 4.20-5.40 [facility] Comment on above: Performed By: #### C BCWD #### [facility] [address] [place] [address] WBC (Bld) [#/Vol] 8.1 10*3/uL Normal 4.8-10.8 [facility] Comment on above: Performed By: #### C BCWD #### [facility] [address] [place] [address] Comprehensive Metabolic Pane rey 09-06-2023 Albumin [Mass/Vol] 4.4 g/dL Normal 3.5-4.6 [facility] Comment on above: Performed By: #### C MP #### [facility] [address] [place] [address] ALP [Catalytic activity/Vol] 72 U/L Normal 40-130 [facility] Comment on above: Performed By: #### C MP #### [facility] [address] [place] [address] ALT [Catalytic activity/Vol] 15 U/L Normal 0-33 [facility] Comment on above: Performed By: #### C MP #### [facility] [address] [place] [address] Anion gap [Moles/Vol] 11 mmol/L Normal 9-15 [facility] Comment on above: Performed By: #### C MP #### [facility] [address] [place] [address] AST [Catalytic activity/Vol] 18 U/L Normal 0-35 [facility] Comment on above: Performed By: #### C MP #### [facility] [address] [place] [address] Bilirubin [Mass/Vol] 0.4 mg/dL Normal 0.2-0.7 [facility] Comment on above: Performed By: #### C MP #### [facility] [address] [place] [address] Calcium [Mass/Vol] 9.5 mg/dL Normal 8.5-9.9 [facility] Comment on above: Performed By: #### C MP #### [facility] [address] [place] [address] Chloride [Moles/Vol] 102 mmol/L Normal 95-107 [facility] Comment on above: Performed By: #### C MP #### [facility] [address] [place] [address] CO2 [Moles/Vol] 24 mmol/L Normal 20-31 [facility] Comment on above: Performed By: #### C MP #### [facility] [address] [place] [address] Creatinine [Mass/Vol] 0.59 mg/dL Normal 0.50-0.90 [facility] Comment on above: Performed By: #### C MP #### [facility] [address] [place] [address] GFR >90.0 Normal >60 [facility] Comment on above: Result Comment: Meghan atric calculator link [email or web address].org/[email or web address]_[email or web address] Effective Mar 15, 2022 These results are not intended for use in patients <18 years of age. eGFR results are calculated without a race factor using the 2020 CKD-EPI equation. Careful clinical correlation is recommended, particularly when comparing to results calculated using previous equations. The CKD-EPI equation is less accurate in patients with extremes of muscle mass, extra-renal metabolism of creatinine, excessive creatinine ingestion, or following therapy that affects renal tubular secretion. Performed By: #### C MP #### [facility] [address] [place] [address] Globulin (S) [Mass/Vol] 3.5 g/dL Normal 2.3-3.5 [facility] Comment on above: Performed By: #### C MP #### [facility] [address] [place] [address] Glucose [Mass/Vol] 98 mg/dL Normal 70-99 [facility] Comment on above: Performed By: #### C MP #### [facility] [address] [place] [address] Potassium [Moles/Vol] 3.2 mmol/L Low 3.4-4.9 [facility] Comment on above: Performed By: #### C MP #### [facility] [address] [place] [address] Protein [Mass/Vol] 7.9 g/dL Normal 6.3-8.0 [facility] Comment on above: Performed By: #### C MP #### [facility] [address] [place] [address] Sodium [Moles/Vol] 137 mmol/L Normal 135-144 [facility] Comment on above: Performed By: #### C MP #### [facility] [address] [place] [address] Urea nitrogen [Mass/Vol] 4 mg/dL Low 6-20 [facility] Comment on above: Performed By: #### C MP #### [facility] [address] [place] [address] US NON OB TRANSVAGINALon US NON OB TRANSVAGINAL EXAMINATION: PELVIC ULTRASOUND 09/06/2023 TECHNIQUE: Transabdominal and transvaginal pelvic duplex ultrasound using B-mode/estevez scaled imaging, Doppler spectral analysis and color flow Doppler was obtained. COMPARISON: None HISTORY: ORDERING SYSTEM PROVIDED HISTORY: r/o torsion, left abd pain TECHNOLOGIST PROVIDED HISTORY: Reason for exam:->r/o torsion, left abd pain What reading provider will be dictating this exam?->CRC FINDINGS: Measurements: Uterus: 7.8 x 5.8 x 4.1 cm Endometrial stripe: 7 mm Right Ovary:3.8 x 3.5 x 1.4 cm Left Ovary: 2.8 x 3.1 x 1.3 cm Ultrasound Findings: Uterus: Uterus demonstrates normal myometrial echotexture. Endometrial stripe: Endometrial stripe is within normal limits. Right Ovary: Right ovary is within normal limits. There is normal arterial and venous Doppler flow. A 1.6 cm right follicular cyst is present. Left Ovary: Left ovary is within normal limits with no enlargement edema or adjacent fluid. There is normal venous Doppler flow. Arterial Doppler signals could not be clearly identified although there was obscuring intervening bowel. Free Fluid: No evidence of free fluid. IMPRESSION: Normal venous Doppler flow within the left ovary. Arterial Doppler signals could not be clearly identified although there was obscuring intervening bowel. There are no secondary signs for left ovarian torsion. There is no pelvic free fluid. RECOMMENDATIONS: Careful clinical correlation and follow up recommended. Interpreted by: Jessy Campos MD Signed by: Jessy Campos MD 09/06/23 Final result Normal [facility] US PELVIS COMPLETEon 024 US PELVIS COMPLETE EXAMINATION: PELVIC ULTRASOUND 09/06/2023 TECHNIQUE: Transabdominal and transvaginal pelvic duplex ultrasound using B-mode/estevez scaled imaging, Doppler spectral analysis and color flow Doppler was obtained. COMPARISON: None HISTORY: ORDERING SYSTEM PROVIDED HISTORY: r/o torsion, left abd pain TECHNOLOGIST PROVIDED HISTORY: Reason for exam:->r/o torsion, left abd pain What reading provider will be dictating this exam?->CRC FINDINGS: Measurements: Uterus: 7.8 x 5.8 x 4.1 cm Endometrial stripe: 7 mm Right Ovary:3.8 x 3.5 x 1.4 cm Left Ovary: 2.8 x 3.1 x 1.3 cm Ultrasound Findings: Uterus: Uterus demonstrates normal myometrial echotexture. Endometrial stripe: Endometrial stripe is within normal limits. Right Ovary: Right ovary is within normal limits. There is normal arterial and venous Doppler flow. A 1.6 cm right follicular cyst is present. Left Ovary: Left ovary is within normal limits with no enlargement edema or adjacent fluid. There is normal venous Doppler flow. Arterial Doppler signals could not be clearly identified although there was obscuring intervening bowel. Free Fluid: No evidence of free fluid. IMPRESSION: Normal venous Doppler flow within the left ovary. Arterial Doppler signals could not be clearly identified although there was obscuring intervening bowel. There are no secondary signs for left ovarian torsion. There is no pelvic free fluid. RECOMMENDATIONS: Careful clinical correlation and follow up recommended. Interpreted by: Jessy Campos MD Signed by: Jessy Campos MD 09/06/23 Final result Normal [facility] Urinalysis, reflex to cultur silvino 09-06-2023 Urine Reflexed to Culture Not Indicated Normal [facility] Comment on above: Performed By: #### U AR #### [facility] [address] [place] [address] Bilirubin Ql (U) Negative Normal Negative [facility] Comment on above: Performed By: #### U AR #### [facility] [address] [place] [address] Clarity (U) Clear Normal Clear [facility] Comment on above: Performed By: #### U AR #### [facility] [address] [place] [address] Color (U) Yellow Normal Straw/[place] [facility] Comment on above: Performed By: #### U AR #### [facility] [address] [place] [address] Glucose Ql (U) >=1000 Abnormal Negative [facility] Comment on above: Performed By: #### U AR #### [facility] [address] [place] [address] Hemoglobin Ql (U) TRACE Abnormal Negative [facility] Comment on above: Performed By: #### U AR #### [facility] [address] [place] [address] Ketones Ql (U) >=80 Abnormal Negative [facility] Comment on above: Performed By: #### U AR #### [facility] [address] [place] [address] Leukocyte esterase Test strip Ql (U) Negative Normal Negative [facility] Comment on above: Performed By: #### U AR #### [facility] [address] [place] [address] Nitrite Ql (U) Negative Normal Negative [facility] Comment on above: Performed By: #### U AR #### [facility] [address] [place] [address] pH (U) 5.0 [pH] Normal 5.0-9.0 [facility] Comment on above: Performed By: #### U AR #### [facility] [address] [place] [address] Protein Ql (U) TRACE Abnormal Negative [facility] Comment on above: Performed By: #### U AR #### [facility] [address] [place] [address] Specific gravity (U) [Rel density] 1.025 Normal 1.005-1.03 [facility] Comment on above: Performed By: #### U AR #### [facility] [address] [place] [address] Urobilinogen Qn (U) 0.2 {Ivone'U}/dL Normal < 2.0 [facility] Comment on above: Performed By: #### U AR #### [facility] [address] [place] [address] Urine Microscopicon 09-06-19 24 Bacteria LM.HPF (Urine sed) [#/Area] Negative Normal Negative [facility] Comment on above: Performed By: #### U ARELIS #### [facility] [address] [place] [address] Urine Epithelial Cells Auto 0-2 Normal 0-5 [facility] Comment on above: Performed By: #### U ARELIS #### [facility] [address] [place] [address] Urine Hyaline Casts Auto 0-1 Normal 0-5 [facility] Comment on above: Performed By: #### U ARELIS #### [facility] [address] [place] [address] Urine RBC Auto 3-5 Abnormal 0-5 [facility] Comment on above: Performed By: #### U ARELIS #### [facility] [address] [place] [address] Urine WBC Auto 0-2 Normal 0-5 [facility] Comment on above: Performed By: #### U ARELIS #### [facility] [address] [place] [address] ED Note-Physicianon 08-01-19 24 ED Note-Physician Basic Information Time Seen: Jignesh Dumont DO 07/31/2023 15:43 Chief Complaint Pt. presents to the ed with c/o abdominal pain that started in the middle of the night on the left side. pt denies any Nausea, vomiting, and diarrhea. History of Present Illness 38-year-old female to the emergency department chief complaint of abdominal pain. She reports it started in the middle of the night. Radiates from her left flank down into her left lower abdomen. She denies any nausea or vomiting. No diarrhea. No fever, sweats, chills. She reports she has had similar pain although not from her flank in the past. She has a history of endometritis for which she follows with a PRODUCTION INSPECTOR at the [facility]. Review of Systems A 10 point review of systems is negative except as noted above. Medical and Surgical History: Reviewed and noted Social history: Lives at home Tobacco: Denies Physical Exam Vitals & Measurements T: 36.6 ?C(Oral) HR: 121(Monitored) RR: 16 BP: 123/87 SpO2: 99% HT: 165.10 cm WT: 82.9 kg BMI: 30.41 VITALS: I have reviewed the triage vital signs. GENERAL: Uncomfortable. 38-year-old female holding left flank and lower abdomen. NEURO: Alert and oriented. Moves all extremities. Face is symmetric and expressive. EYES: PERRL. No scleral icterus or conjunctival injection. No discharge. HENT: Normocephalic, atraumatic. Hearing is grossly intact. Nares grossly patent and without discharge. Mucous membranes moist. NECK: No JVD. Patient moves neck without restriction. CARDIO: Rhythm regular. Normal rate. No murmur, rub, or gallop. Pulses equal bilaterally in the upper and lower extremity. No lower extremity edema. PULM: Lungs clear to auscultation in all hol[place]. No wheezes, rales, or rhonchi. No conversational dyspnea. No splinting, stridor, or accessory muscle use. GI/: Abdomen is soft. Mild left lower quadrant tenderness. Normoactive bowel sounds. EXTREMITIES: Symmetric muscle bulk. No joint swelling. No clubbing, cyanosis, or deformity. SKIN: Warm and dry. Normal turgor. No rash or lesions appreciated. PSYCH: Mood, affect, and interaction is appropriate to the setting. Medical Decision Making 38-year-old female to the emergency department chief complaint of abdominal pain on the left side. Vital stable, the patient is afebrile. Pain and nausea medication was ordered for symptom control. CT scan to be obtained. Diverticulitis versus kidney stone. Basic labs. Patient agrees with this plan. Lab work reviewed and noted. There are no major abnormalities. Her urinalysis is without acute abnormality. CT scan without acute findings. She does have simple adnexal cyst which are consistent to previous imaging. Upon chart review it does appear the patient has had multiple workups for this in the past without acute findings. It has been attributed to endometritis. I believe the patient is safe for discharge home and follow-up with her PRODUCTION INSPECTOR. Short course of pain medication as prescribed after an OAR[place] review for this patient. Return precautions were discussed. All questions were answered. The patient was discharged home for outpatient follow-up for her acute on chronic pain. Assessment/Plan Abdominal pain, acute (R10.9: Unspecified abdominal pain) Ordered: acetaminophen-oxycod one, 1 tab(s), Oral, q6hr Pain 8-10 for 3 day(s), 12 tab(s), Refill(s) 0, [facility]/pharmacy #[id number], 165.1, cm, 07/31/23 15:42:00 EST, Height/Length Dosing, 82.9, kg, 07/31/23 15:42:00 EST, Weight Dosing Orders: acetaminophen-oxycod one, 1 EA, Tab, Oral, Once, Stop date 07/31/23 17:51:00 EST, STAT, Start date 07/31/23 17:51:00 EST HYDROmorphone, 0.5 mg = 0.5 mL, Injection, IV Push, Once, Stop date 07/31/23 15:53:00 EST, STAT, Start date 07/31/23 15:53:00 EST, 07/31/23 15:53:00 EST HYDROmorphone, 0.5 mg = 0.5 mL, Injection, IV Push, Once, Stop date 07/31/23 17:20:00 EST, STAT, Start date 07/31/23 17:20:00 EST, 07/31/23 17:20:00 EST ketorolac, 30 mg = 1 mL, Injection, IV Push, Once, Stop date 07/31/23 15:52:00 EST, STAT, Start date 07/31/23 15:52:00 EST, 07/31/23 15:52:00 EST ondansetron, 4 mg = 2 mL, Injection, IV Push, Once, Stop date 07/31/23 15:52:00 EST, STAT, Start date 07/31/23 15:52:00 EST, 07/31/23 15:52:00 EST Sodium Chloride 0.9% intravenous solution, 1,000 mL, Soln-IV, IV, Once, Stop date 07/31/23 15:52:00 EST, STAT, Start date 07/31/23 15:52:00 EST, Infuse over 61, minute(s) Basic Metabolic Panel Beta hCG Qual CBC w/ Auto Diff CT Abdomen/Pelvis w/o Contrast ED Cardiac Monitoring eGFR Hepatic Function Panel Saline Lock Insert UA With Cult Reflex Medications Administered Given HYDROmorphone 1 mg/mL injectable solution, 0.5 mg, IV Push HYDROmorphone 1 mg/mL injectable solution, 0.5 mg, IV Push ketorolac 30 mg/mL Inj 1 mL, 30 mg, IV Push NS 1000 ml Bolus, 1000 mL, IV ondansetron 4 mg/2 mL Inj, 4 mg, IV Push TO GO acetaminophen-oxycod one 325 mg - 5 mg, 1 EA, Oral Disposition Plan Patient Discharge Condition Stable Discharge D (more content not included)... Normal [facility] Comment on above: Result Comment: Elec tronically Signed By: Jignesh Dumont DO\.br\Date and Time Signed: 08/01/23 09:21 EST B hCG Qualon 07-31-2023 Beta HCG ( test) Ql Negative Normal [facility] Comment on above: Performed By: #### 2 674109, [id number], 05690654, 5474551, [id number] ####[facility] [address] [place] [address] BMPon 07-31-2023 Anion gap [Moles/Vol] 15 mmol/L Normal 6-[address] [facility] Comment on above: Performed By: #### 2 787953, 6112400, 50476594, 5761571, [id number] ####[facility] [address] [place] [address] BUN/Creat Ratio 4 No Units Low 10-20 [facility] Comment on above: Performed By: #### 2 584513, 8466533, 20579701, 1781879, [id number] ####[facility] [address] [place] [address] Calcium [Mass/Vol] 9.6 mg/dL Normal 8.9-11.1 [facility] Comment on above: Performed By: #### 2 842271, 3270576, 67020358, 0587159, [id number] ####[facility] [id number] [place] [address] Chloride [Moles/Vol] 106 mmol/L Normal 101-111 [facility] Comment on above: Performed By: #### 2 434571, 3912295, 00084437, 8698625, [id number] ####[facility] [address] [place] [address] CO2 [Moles/Vol] 21 mmol/L Normal 21-31 [facility] Comment on above: Performed By: #### 2 747730, 7404749, 87745446, 7546885, 10276184 ####[facility] [id number] [place] [address] Creatinine [Mass/Vol] 0.9 mg/dL Normal 0.5-1.[address] [facility] Comment on above: Performed By: #### 2 869262, 0445557, 63971214, 2171162, 65903209 ####[facility] [address] [place] [address] Glucose [Mass/Vol] 109 mg/dL Normal 55-199 [facility] Comment on above: Performed By: #### 2 735722, 1225236, 64058834, 8120941, 70419137 ####[facility] [address] [place] [address] Potassium [Moles/Vol] 3.6 mmol/L Normal 3.5-5.[address] [facility] Comment on above: Performed By: #### 2 630900, 2156883, 38521035, 2239333, 86899738 ####[facility] [address] [place] [address] Sodium [Moles/Vol] 138 mmol/L Normal 135-145 [facility] Comment on above: Performed By: #### 2 318878, 4480346, 07172713, 7037962, 13725868 ####[facility] [address] [place] [address] Urea nitrogen [Mass/Vol] mg/dL Low 5-21 [facility] Comment on above: Performed By: #### 2 830292, 1156699, 46271768, 7696924, 50959808 ####[address] [address] CBC w/ Auto Diffon 4 Anisocytosis Ql (Bld) PRESENT Invalid Interpretation Code [facility] Comment on above: Performed By: #### 2 466309, 7236746, 64086501, 4733010, 45555046 ####[address] [address] Microcyte PRESENT Invalid Interpretation Code [facility] Comment on above: Performed By: #### 2 360148, 2765111, 59115456, 2707838, [id number] ####[address] [address] RBC morphology finding Nom (Bld) SEE MORPHOLOGY Invalid Interpretation Code [facility] Comment on above: Performed By: #### 2 424969, 3694163, 96108083, 5887537, 65279151 ####[address] [place] [address] Basophil Absolute 0.1 E9/L Normal 0.0-0.2 [facility] Comment on above: Performed By: #### 2 737676, 5472151, 26774102, 2461776, 55468053 ####[facility] [address] [place] [address] Basophils/100 WBC (Bld) 1.1 % Normal 0.0-2.0 [facility] Comment on above: Performed By: #### 2 308297, 3701538, 69947809, 6707616, 30656855 ####[address] [address] Eos Absolute 0.0 E9/L Normal 0.0-0.5 [facility] Comment on above: Performed By: #### 2 435868, 6575599, 48684791, 3375375, 94430120 ####[address] [address] Eosinophils/100 WBC (Bld) 0.2 % Normal 0.0-8.0 [facility] Comment on above: Performed By: #### 2 305019, 6167105, 34215713, 7403633, 93919059 ####[address] [address] Erythrocyte distribution width (RBC) [Ratio] 16.5 % High 10.9-14.2 [facility] Comment on above: Performed By: #### 2 095374, 8093922, 12500274, 9318375, 40040432 ####[address] [address] Hematocrit (Bld) [Volume fraction] 36.0 % Normal 34.0-46.0 [facility] Comment on above: Performed By: #### 2 880720, 1359946, 83969685, 4007992, 39448293 ####[address] [address] Hemoglobin (Bld) [Mass/Vol] 11.4 g/dL Low 12.0-16.0 [facility] Comment on above: Performed By: #### 2 470856, 9621401, 10064245, 4066075, 54904847 ####[address] [address] Lymph Absolute 2.2 E9/L Normal 1.0-4.0 [facility] Comment on above: Performed By: #### 2 116303, 9177552, 32473694, 3481008, 42597393 ####[facility] [address] [place] [address] Lymphocytes/100 WBC (Bld) 25.3 % Normal 14.0-50.0 [facility] Comment on above: Performed By: #### 2 646718, 1817780, 44828052, 4310376, 32921777 ####[facility] [address] [place] [address] MCH (RBC) [Entitic mass] 24.0 pg Low 27.0-34.0 [facility] Comment on above: Performed By: #### 2 295583, 6276198, 74155925, 6293725, 19441289 ####[address] [address] MCHC (RBC) [Mass/Vol] 31.9 g/dL Normal 31.4-36.[address] [facility] Comment on above: Performed By: #### 2 880411, 3545092, 39290401, 3739936, 10181705 ####[address] [address] MCV (RBC) [Entitic vol] 75.2 fL Low 80.0-100.0 [facility] Comment on above: Performed By: #### 2 145601, 0858236, 01407608, 4269662, 93694601 ####[facility] [address] [place] [address] [place] Absolute 0.5 E9/L Normal 0.2-1.0 [facility] Comment on above: Performed By: #### 2 659436, 1035453, 02855041, 3389447, 81367767 ####[address] [address] Monocytes/100 WBC (Bld) 5.4 % Normal 4.0-14.0 [facility] Comment on above: Performed By: #### 2 675628, 4333523, 30359015, 9003229, [id number] ####[facility] [address] [place] [address] Neutro Absolute 5.9 E9/L Normal 2.0-7.5 [facility] Comment on above: Performed By: #### 2 552057, 8158663, 73273017, 4682092, [id number] ####[facility] [address] [place] [address] Neutro Auto 68.0 % Normal 36.0-75.0 [facility] Comment on above: Performed By: #### 2 152080, 2796921, 18281923, 2644183, [id number] ####[address] [address] Platelet 612.0 E9/L High 150.0-500.0 [facility] Comment on above: Performed By: #### 2 895817, 6453471, 25436634, 7980481, 52159964 ####[address] [address] Platelet mean volume (Bld) [Entitic vol] 7.4 fL Normal 6.4-10.8 [facility] Comment on above: Performed By: #### 2 200805, 5186582, 25863577, 9512044, 32776066 ####[address] [place] [address] RBC 4.7 E12/L Normal 4.3-5.9 [facility] Comment on above: Performed By: #### 2 122044, 7481958, 43011588, 3954404, 39039480 ####[address] [place] [address] WBC 8.6 E9/L Normal 4.0-11.0 [facility] Comment on above: Performed By: #### 2 177790, 6013529, 73034371, 0105921, 69538693 ####[facility] [address] [place] [address] CHEMISTRYOrdered By: SYSTEM SYSTEM on 07-31-2023 Albumin [Mass/Vol] 4.6 g/dL Normal 3.3 - 5.0 gm/dL Remisol Chem Albumin/Globulin [Mass ratio] 1.4 {ratio} Normal 1.1 - 2.2 Remisol Chem Alk Phos 73 [iU]/d Normal 21 - 98 Int._Unit/L Remisol Chem ALT 10 [iU]/d Normal 6 - 46 Int._Unit/L Remisol Chem Anion gap [Moles/Vol] 15 mmol/L Normal 6 - 16 mEq/L R emisol Chem AST 11 [iU]/d Normal 5 - 43 Int._Unit/L Remisol Chem Bili Direct 0.1 mg/dL Normal 0.0 - 0.4 mg/dL Remisol Chem Bili Indirect 0.4 mg/dL Normal 0.1 - 0.9 mg/dL Remisol Chem Bili Total 0.5 mg/dL Normal 0.0 - 1.1 mg/dL Remisol Chem Calcium [Mass/Vol] 9.6 mg/dL Normal 8.9 - 11. 1 mg/dL Remisol Chem Chloride [Moles/Vol] 106 mmol/L Normal 101 - 1 11 mmol/L Remisol Chem CO2 [Moles/Vol] 21 mmol/L Normal 21 - 31 mmol/L Remisol Chem Creatinine [Mass/Vol] 0.9 mg/dL Normal 0.5 - 1.3 mg/dL Remisol Chem eGFR 85 mL/min/1.73 m2 Normal >=59mL/min /1 .73 m2 Remisol Chem Globulin (S) [Mass/Vol] 3.3 g/dL Normal 1.4 - 4.0 gm/dL Remisol Chem Glucose [Mass/Vol] 109 mg/dL Normal 55 - 199 mg/dL Remisol Chem Potassium [Moles/Vol] 3.6 mmol/L Normal 3.5 - 5.3 mmol/L Remisol Chem Protein [Mass/Vol] 7.9 g/dL High 6.0 - 7.8 gm/dL Remisol Chem Sodium [Moles/Vol] 138 mmol/L Normal 135 - 145 mmol/L Remisol Chem Urea nitrogen [Mass/Vol] mg/dL Low 5 - 21 mg/dL Remisol Chem Urea nitrogen/Creatinine [Mass ratio] 4 mg/mg Low 10 - [address] Abdomen/Pelvis w/o Contra ston 07-31-2023 CT Abdomen/Pelvis w/o Contrast Exam Date/Time: 07/31/2023 17:10 EST Reason for Exam: Abdominal pain, acute, nonlocalized;Other (please specify) Report IMPRESSION: No acute process in the unenhanced abdomen/pelvis. Bilateral simple appearing adnexal cysts. EXAMINATION: CT Abdomen/Pelvis w/o Contrast HISTORY: Abdominal pain, acute, nonlocalized. TECHNIQUE: Non-IV contrast imaging of the abdomen and pelvis was performed using standard technique, scanning from just above the dome of the diaphragm to the symphysis pubis. Unenhanced imaging is limited for the evaluation of some intra-abdominal and pelvic pathology. Unless otherwise stated, incidental findings in this report do not require further routine follow-up imaging. All CT scans at this facility use dose modulation, iterative reconstruction, and/or weight based dosing when appropriate to reduce radiation dose to as low as reasonably achievable. COMPARISON: CT 04/24/2023. Pelvic ultrasound 05/17/2023. RESULT: Abdomen / Pelvis: Liver: Unremarkable. Biliary: Cholecystectomy. Pancreas: Unremarkable. Spleen: No splenomegaly. Adrenals: No mass. Kidneys: No calculus, hydronephrosis or finding to suggest a cyst or mass in the unenhanced kidney. GI Tract: No bowel dilation. Normal appendix. No evidence for diverticulitis. Lymph Nodes: No lymphadenopathy. Report Mesentery/peritoneum /retroperitoneum: No ascites or mass. Vasculature: No abdominal aortic or iliac artery aneurysm. Pelvis: No significant free fluid. Bladder decompressed. Uterus grossly unremarkable. 5.0 cm simple appearing right adnexal cyst. 2.1 cm simple appearing left adnexal cyst. Bones/Soft Tissues: No acute osseous findings. Lower thorax: Unremarkable. Ordering Provider: Jignesh Dumont FINAL REPORT Dictated: 07/31/2023 5:23 pm Akhil Stone MD Signed (Electronic Signature): 07/31/2023 5:23 pm Signed by: Akhil Stone MD Transcribed by: MILLIE Technologist: LUCI Technical Comments Rectal Contrast Given? No Oral contrast amount in ml's: 0 Normal [facility] Discharge Instructionson Discharge Instructions [id number] #1.00TIFF Normal [facility] ED Clinical Summaryon 2023 ED Clinical Summary [id number] ED Clinical Summary Person Information Name: LIVIA [facility] Age: 38 Years : 1985 Sex: Female Language: Dominican PCP: NONE, XXXX Marital Status: Visit Id: Visit Reason: Flank pain; Abdominal pain; ABD PAIN Speciality: Acuity: 3 Enc Type: Emergency Med Service: Emergency Arrival: 07/31/2023 15:33:06 Discharge: 07/31/2023 18:03:54 LOS: 000 02:30 Checkin: 07/31/2023 15:33:06 Checkout: 07/31/2023 18:03:54 Dispo Type: Home (Routine DC) EVENTS: Event Name Event Status Request Date/Time Start Date/Time Complete Date/Time Arrive Complete 07/31/2023 15:33:06 07/31/2023 15:33:06 07/31/2023 15:33:06 Document Home Meds Request 07/31/2023 15:33:06 Triage Complete 07/31/2023 15:33:06 07/31/2023 15:42:40 07/31/2023 15:42:40 Registration Complete 07/31/2023 15:35:25 07/31/2023 15:35:25 07/31/2023 15:35:25 Reg Complete Request 07/31/2023 15:35:25 Reg Bed Request Complete 07/31/2023 15:35:25 07/31/2023 15:35:25 07/31/2023 15:35:25 Bed Assign Complete 07/31/2023 15:37:07 07/31/2023 15:37:07 07/31/2023 15:37:07 Dr Exam Complete 07/31/2023 15:37:07 07/31/2023 15:43:12 07/31/2023 15:43:12 RN Exam Complete 07/31/2023 15:37:08 07/31/2023 16:05:23 07/31/2023 16:05:23 Registration Request 07/31/2023 15:43:12 Meds Admin Complete 07/31/2023 15:53:40 07/31/2023 16:06:05 Pending Labs Complete 07/31/2023 15:53:40 07/31/2023 16:53:49 Lab Complete 07/31/2023 15:53:40 07/31/2023 16:48:29 Urine Collect Complete 07/31/2023 15:53:40 07/31/2023 16:42:49 Patient Care Complete 07/31/2023 15:53:40 07/31/2023 16:02:24 CT Complete 07/31/2023 15:53:40 07/31/2023 17:03:59 07/31/2023 17:10:03 Pending Labs Complete 07/31/2023 16:28:33 07/31/2023 16:28:33 07/31/2023 16:47:31 Lab Complete 07/31/2023 16:28:33 07/31/2023 16:28:33 07/31/2023 16:47:31 Meds Admin Complete 07/31/2023 17:20:41 07/31/2023 17:24:15 Meds Admin Complete 07/31/2023 17:51:13 07/31/2023 17:59:08 Discharge Complete 07/31/2023 17:52:26 07/31/2023 18:03:59 07/31/2023 18:03:59 Transfer Complete 07/31/2023 18:03:59 07/31/2023 18:03:59 07/31/2023 18:03:59 ADDRESS: [address] [place] [id number] PHYS DOC NOTES: MEDICAL INFORMATION: Prescriptions Given: New Medications [id number], [address], [place] [id number], [phone] acetaminophen-oxycod one (Percocet 5 mg-325 mg oral tablet) 1 Tablets By Mouth every 6 hours as needed Pain 8-10 for 3 Days. Refills: 0. Medications to Continue with No Changes Other Medications alprazolam (alprazolam 0.25 mg Tab) budesonide-formotero l (Symbicort 80/4.5 inhalation aerosol with adapter) citalopram (citalopram 20 mg Tab) By Mouth every day. PATIENT EDUCATION INFORMATION: Instructions: Abdominal Pain, Adult Follow up: With: Address: When: Follow-up with your PRODUCTION INSPECTOR at [facility] In 3 days 08/03/2023 Comments: Call the office of your primary care doctor to arrange for follow-up within the above-stated timeframe. Follow-up with your primary care doctor about this ED visit. You should review your labs, imaging, and diagnoses from this ED visit with your primary care physician. There are occasionally non-emergent findings that require additional follow-up after your ED visit. If you were prescribed medications you should discuss possible side-effects and drug interactions with your pharmacist. Call 911 or go to the nearest Emergency Department if you develop any new or worsening symptoms. Seek immediate medical attention if you develop: worsening abdominal pain, new or worsening nausea, new or worsening vomiting, new or worsening diarrhea, chest pain, shortness of breath, pain with urination, problems urinating, fever, chills, weakness, or any new or worsening symptoms. DIAGNOSIS: Abdominal pain, acute Normal [facility] ED Patient Education Noteon 07-31-2023 ED Patient Education Note Gastroenterology Abdominal Pain, Adult Pain in the abdomen (abdominal pain) can be caused by many things. Often, abdominal pain is not serious and it gets better with no treatment or by being treated at home. However, sometimes abdominal pain is serious. Your health care provider will ask questions about your medical history and do a physical exam to try to determine the cause of your abdominal pain. Follow these instructions at home: Medicines ? Take pnho-qqw-mfrczss and prescription medicines only as told by your health care provider. ? Do not take a laxative unless told by your health care provider. General instructions ? Watch your condition for any changes. ? Drink enough fluid to keep your urine pale yellow. ? Keep all follow-up visits as told by your health care provider. This is important. Contact a health care provider if: ? Your abdominal pain changes or gets worse. ? You are not hungry or you lose weight without trying. ? You are constipated or have diarrhea for more than 2?3 days. ? You have pain when you urinate or have a bowel movement. ? Your abdominal pain wakes you up at night. ? Your pain gets worse with meals, after eating, or with certain foods. ? You are vomiting and cannot keep anything down. ? You have a fever. ? You have blood in your urine. Get help right away if: ? Your pain does not go away as soon as your health care provider told you to expect. ? You cannot stop vomiting. ? Your pain is only in areas of the abdomen, such as the right side or the left lower portion of the abdomen. Pain on the right side could be caused by appendicitis. ? You have bloody or black stools, or stools that look like tar. ? You have severe pain, cramping, or bloating in your abdomen. ? You have signs of dehydration, such as: ? Dark urine, very little urine, or no urine. ? Cracked lips. ? Dry mouth. ? Sunken eyes. ? Sleepiness. ? Weakness. ? You have trouble breathing or chest pain. Summary ? Often, abdominal pain is not serious and it gets better with no treatment or by being treated at home. However, sometimes abdominal pain is serious. ? Watch your condition for any changes. ? Take xeay-glk-qogrpyc and prescription medicines only as told by your health care provider. ? Contact a health care provider if your abdominal pain changes or gets worse. ? Get help right away if you have severe pain, cramping, or bloating in your abdomen. This information is not intended to replace advice given to you by your health care provider. Make sure you discuss any questions you have with your health care provider. Document Revised: 07/18/2020 Document Reviewed: 10/08/2019 Elsevier Patient Education ? 2022 [employer] Normal [facility] ED Patient Summaryon 024 ED Patient Summary [address] [address] Patient Discharge Instructions Person Information Name: LIVIA NOYOLA Age: 38 Years MRN: [id number] Arrival Date: 07/31/2023 15:33:06 Discharge Diagnosis: Abdominal pain, acute Primary Care Physician: NONE, XXXX Provider Information Primary Provider: Jignesh Dumont DO Advanced Business Office Representative:Shazia The exam and treatment you received in the Emergency Department were for an urgent problem and are not intended as complete care. It is important that you follow up with a doctor, nurse practitioner, or physician?s speech assistant for ongoing care. If your symptoms become worse or you do not improve as expected and you are unable to reach your usual health care provider, you should return to the Emergency Department. We are available 24 hours a day. LIVIA NOYOLA has been given the following list of patient education materials, prescriptions and follow-up instructions: Follow-up Instructions: With: Address: When: Follow-up with your PRODUCTION INSPECTOR at [facility] In 3 days 08/03/2023 Comments: Call the office of your primary care doctor to arrange for follow-up within the above-stated timeframe. Follow-up with your primary care doctor about this ED visit. You should review your labs, imaging, and diagnoses from this ED visit with your primary care physician. There are occasionally non-emergent findings that require additional follow-up after your ED visit. If you were prescribed medications you should discuss possible side-effects and drug interactions with your pharmacist. Call 911 or go to the nearest Emergency Department if you develop any new or worsening symptoms. Seek immediate medical attention if you develop: worsening abdominal pain, new or worsening nausea, new or worsening vomiting, new or worsening diarrhea, chest pain, shortness of breath, pain with urination, problems urinating, fever, chills, weakness, or any new or worsening symptoms. In the event that this physician does not participate in your insurance network, please consult with your insurance company to find a nearby participating provider. Patient Education Materials: Abdominal Pain, Adult A MESSAGE TO ALL PATIENTS REGARDING OPIOIDS PRESCRIPTION OPIOIDS: WHAT YOU NEED TO KNOW Prescription opioids can be used to help relieve hkuqioxb-is-psnwjj pain and are often prescribed following a surgery or injury, or for certain health conditions. These medications can be an important part of the treatment but also come with serious risks. It is important to work with your healthcare provider to make sure you are getting the safest, most effective care. WHAT ARE THE RISKS AND SIDE EFFECTS OF OPIOID USE? Prescription opioids carry serious risks of addiction and overdose, especially with prolonged use. An opioid overdose, often marked by slowed breathing, can cause sudden . The use of prescription opioids can have a number of side effects as well, even when taken as directed: ? Tolerance?meaning you might need to take more of the medication for the same pain relief ? Physical dependence?meaning you have symptoms of withdrawal when a medication is stopped ? Increased sensitivity to pain ? Constipation ? Nausea, vomiting, and dry mouth ? Sleepiness and dizziness ? Confusion ? Depression ? Low levels of testosterone that can result in lower sex drive, energy, and strength ? Itching and sweating RISKS ARE GREATER WITH: ? History of drug misuse, substance use disorder, or overdose ? Mental health conditions (such as depression or anxiety) ? Sleep apnea ? Older age (65 years and older) ? Avoid alcohol while taking prescription opioids. Also, unless specifically advised by your health care provider, medications to avoid include: ? Benzodiazepines (such as Xanax or Valium) ? Muscle relaxants (such as Soma or Flexeril) ? Hypnotics (such as Ambien or Lunesta) ? Other prescription opioids KNOW YOUR OPTIONS Talk to your health care provider about ways to manage your pain that don?t involve prescription opioids. Some of these options may actually work better and have fewer risks and side effects. Options may include: ? Pain relievers such as acetaminophen, ibuprofen, and naproxen ? Some medication that are also used for depression or seizures ? Physical therapy and exercise ? Cognitive behavioral therapy, a psychological, goal-directed approach, in which patients learn how to modify physical, behavioral, and emotional triggers of pain and stress. IF YOU ARE PRESCRIBED OPIOIDS FOR PAIN: ? Never take opioids in greater amounts or more often than prescribed. ? Follow up with your primary health care provider. o Work together to create a plan on how to manage your pain. o Talk about ways to help manage your pain that don?t involve prescription opioids. o Talk about any and al (more content not included)... Normal [facility] HEMATOLOGYOrdered By: Sloane Mazariegos on 07-31-2023 Anisocytosis Ql (Bld) PRESENT Invalid Interpretation Code Remisol Heme Microcyte PRESENT Invalid Interpretation Code Remisol Heme RBC morphology finding Nom (Bld) SEE MORPHOLOGY Invalid Interpretation Code Remisol Heme HEMATOLOGYOrdered By: SYSTEM SYSTEM on 07-31-2023 Basophil Absolute 0.1 E9/L Normal 0.0 - 0.2 E9/L Remisol Heme Basophils/100 WBC (Bld) 1.1 % Normal 0.0 - 2.0 % Remisol Heme Eos Absolute 0.0 E9/L Normal 0.0 - 0.5 E9/L Remisol Heme Eosinophils/100 WBC (Bld) 0.2 % Normal 0.0 - 8.0 % Remisol Heme Erythrocyte distribution width (RBC) [Ratio] 16.5 % High 10.9 - 14.2 % Remisol Heme Hematocrit (Bld) [Volume fraction] 36.0 % Normal 34.0 - 46.0 % Remisol Heme Hemoglobin (Bld) [Mass/Vol] 11.4 g/dL Low 12.0 - 16.0 gm/dL Remisol Heme Lymph Absolute 2.2 E9/L Normal 1.0 - 4.0 E9/L Remisol Heme Lymphocytes/100 WBC (Bld) 25.3 % Normal 14.0 - 50.0 % Remisol Heme MCH (RBC) [Entitic mass] 24.0 pg Low 27.0 - 34.0 pg Remisol Heme MCHC (RBC) [Mass/Vol] 31.9 g/dL Normal 31.4 - 36.0 gm/dL Remisol Heme MCV (RBC) [Entitic vol] 75.2 fL Low 80.0 - 100.0 fL Remisol Heme [place] Absolute 0.5 E9/L Normal 0.2 - 1.0 E9/L Remisol Heme Monocytes/100 WBC (Bld) 5.4 % Normal 4.0 - 14.0 % Remisol Heme Neutro Absolute 5.9 E9/L Normal 2.0 - 7.5 E9/L Remisol Heme Neutro Auto 68.0 % Normal 36.0 - 75.0 % Remisol Heme Platelet 612.0 E9/L High 150.0 - 500.0 E9/L Remisol Heme Platelet mean volume (Bld) [Entitic vol] 7.4 fL Normal 6.4 - 10.8 fL Remisol Heme RBC 4.7 E12/L Normal 4.3 - 5.9 E12/L Remisol Heme WBC 8.6 E9/L Normal 4.0 - 11.0 E9/L Remisol Heme Hep Func Panelon 07-31-2023 Albumin [Mass/Vol] 4.6 g/dL Normal 3.3-5.0 [facility] Comment on above: Performed By: #### 2 060984, 1393189, 85090774, 6943397, 76529809 ####[facility] [address] [place] [address] Albumin/Globulin [Mass ratio] 1.4 {ratio} Normal 1.1-2.2 [facility] Comment on above: Performed By: #### 2 903239, 7156531, 36873702, 7741421, 36475211 ####[facility] [address] [place] [address] Alk Phos 73 Int._Unit/L Normal 21-98 [facility] Comment on above: Performed By: #### 2 785408, 8781383, 04345144, 0346175, [id number] ####[facility] [address] [place] [address] ALT 10 Int._Unit/L Normal 6-46 [facility] Comment on above: Performed By: #### 2 203949, 6140653, 64253059, 0680670, 27338193 ####[facility] [address] [place] [address] AST 11 Int._Unit/L Normal 5-43 [facility] Comment on above: Performed By: #### 2 517055, 5714325, 29998190, 0670955, 34615507 ####[facility] [address] [place] [address] Bili Direct 0.1 mg/dL Normal 0.0-0.4 [facility] Comment on above: Performed By: #### 2 390778, 0491926, 96797003, 2488900, 49875458 ####[facility] [address] [place] [address] Bili Indirect 0.4 mg/dL Normal 0.1-0.9 [facility] Comment on above: Performed By: #### 2 187381, 1141857, 29659502, 0226121, 45389487 ####[facility] [address] [place] [address] Bili Total 0.5 mg/dL Normal 0.0-1.1 [facility] Comment on above: Performed By: #### 2 488868, 0748674, 86121283, 4115935, 39572919 ####[facility] [address] [place] [address] Globulin (S) [Mass/Vol] 3.3 g/dL Normal 1.4-4.0 [facility] Comment on above: Performed By: #### 2 601869, 6988177, 50245951, 5433350, 64025919 ####[facility] [address] [place] [address] Protein [Mass/Vol] 7.9 g/dL High 6.0-7.8 [facility] Comment on above: Performed By: #### 2 353468, 9288039, 67195600, 9510309, 25132201 ####[facility] [address] [place] [address] Monitor Recordon 07-31-2023 Monitor Record [id number] 2#1.00TIFF Normal [facility] SEROLOGYOrdered By: Felicity patel on 07-31-2023 Beta HCG ( test) Ql Negative (07/31/23 4:20 PM) Normal [facility] Man Sero UA With Cult Reflexon 2023 Bacteria LM Ql (Urine sed) TRACE Normal Trace [facility] Comment on above: Performed By: #### 1 8784592 ####[facility] [address] [place] [address] Bilirubin Ql (U) Negative Normal Negative [facility] Comment on above: Performed By: #### 1 [id number] ####[facility] [address] [place] [address] Clarity (U) CLEAR Normal Clear [facility] Comment on above: Performed By: #### 1 2284134 ####[facility] [address] [place] [address] Color (U) YELLOW Normal Yellow [facility] Comment on above: Performed By: #### 1 2645846 ####[address] [address] Epithelial cells.squamous LM.HPF (Urine sed) [#/Area] 0-2 Normal 0-2 [facility] Comment on above: Performed By: #### 1 6241433 ####[address] [address] Glucose Test strip (U) [Mass/Vol] Negative Normal Negative [facility] Comment on above: Performed By: #### 1 [id number] ####[address] [address] Hemoglobin Ql (U) Negative Normal Negative [facility] Comment on above: Performed By: #### 1 2359600 ####[address] [address] Ketones (U) [Mass/Vol] 1+ Abnormal Negative [facility] Comment on above: Performed By: #### 1 6197907 ####[address] [address] [place].plasma/[place]. RBC (Bld) [Mass ratio] 0-3 Normal 0-3 [facility] Comment on above: Performed By: #### 1 4463378 ####[facility] [address] [place] [address] Mucus Ql (Urine sed) TRACE Normal [facility] Comment on above: Performed By: #### 1 8241535 ####[address] [place] [address] Nitrite Ql (U) Negative Normal Negative [facility] Comment on above: Performed By: #### 1 1870243 ####[address] [place] [address] pH (U) 8.5 [pH] Invalid Interpretation Code 5.0-9.0 [facility] Comment on above: Performed By: #### 1 [id number] ####[facility] [address] [place] [address] Protein (U) [Mass/Vol] Negative Normal Negative [facility] Comment on above: Performed By: #### 1 7782505 ####[facility] [address] [place] [address] Specific gravity (U) [Rel density] 1.015 Invalid Interpretation Code 1.005-1.030 [facility] Comment on above: Performed By: #### 1 2649784 ####[facility] [address] [place] [address] Type of Urine collection method Clean Catch Normal [facility] Comment on above: Performed By: #### 1 6597529 ####[address] [address] Urobilinogen Qn (U) 0.2 {Ivone'U}/dL Normal 0.0-1.0 [facility] Comment on above: Performed By: #### 1 2834620 ####[facility] [address] [place] [address] WBC Auto Ql (U) Negative Normal Negative [facility] Comment on above: Performed By: #### 1 [id number] ####[facility] [address] [place] [address] WBC LM.HPF (Urine sed) [#/Area] 0-5 Normal 0-5 [facility] Comment on above: Performed By: #### 1 3168901 ####[facility] [address] [place] [address] URINALYSISOrdered By: Felicity George on 07-31-2023 Bacteria LM Ql (Urine sed) Trace /HPF Normal Trace/HPF FT UA Auto SS Bilirubin Ql (U) Negative (07/31/23 4:30 PM) Normal Negative FT UA Auto SS Clarity (U) Clear (07/31/23 4:30 PM) Normal Clear FT UA Auto SS Color (U) Yellow (07/31/23 4:30 PM) Normal Yellow [facility] UA Auto SS Epithelial cells.squamous LM.HPF (Urine sed) [#/Area] 0-2 /HPF Normal 0-2/HPF [facility] UA Aut o SS Glucose Test strip (U) [Mass/Vol] Negative (07/31/23 4:30 PM) Normal Negative [facility] UA Auto SS Hemoglobin Ql (U) Negative (07/31/23 4:30 PM) Normal Negative [facility] U[facility] Auto SS Ketones (U) [Mass/Vol] 1+ *ABN* (07/31/23 4:30 PM) Invalid Interpretation Code Negative [facility] UA Auto SS [place].plasma/[place]. RBC (Bld) [Mass ratio] 0-3 /HPF Normal 0-3/HPF [facility] A uto SS Mucus Ql (Urine sed) Trace (07/31/23 4:30 PM) Normal [facility] Auto SS Nitrite Ql (U) Negative (07/31/23 4:30 PM) Normal Negative [facility] Auto SS pH (U) 8.5 *NA* (07/31/23 4:30 PM) Invalid Interpretation Code 5.0 - 9.0 [facility] U[facility] Auto SS Protein (U) [Mass/Vol] Negative (07/31/23 4:30 PM) Normal Negative [facility] UA Auto SS Specific gravity (U) [Rel density] 1.015 *NA* (07/31/23 4:30 PM) Invalid Interpretation Code 1.005 - 1.030 [facility] UA Auto SS UA Spec Desc Clean Catch (07/31/23 4:30 PM) Normal [facility] U[facility] Auto SS Urobilinogen Qn (U) 0.5807364 {Ivone'U}/dL Normal 0.0 - 1.0 EU/dL [facility] U[facility] Auto SS WBC Auto Ql (U) Negative (07/31/23 4:30 PM) Normal Negative [facility] Auto SS WBC LM.HPF (Urine sed) [#/Area] 0-5 /HPF Normal 0-5/HPF [facility] UA Auto SS eGFRon 07-31-2023 eGFR 85 mL/min/1.73 m2 Normal >=59 [facility] Comment on above: Order Comment: Order added by Discern Expert. Performed By: #### 2 [id number], [id number], [id number], [id number], [id number] ####[facility] [address] [place] [address] ED NOTEon 06-23-2023 ED NOTE HNO ID: [id number] Author: DENNIS CAMARGO RN Service: ? Author Type: Registered Nurse Type: ED Notes Filed: 06/22/2023 22:17 Note Text: Patient given verbal and written D/C instructions. Medications and follow up care discussed. Instructed to return to ED if conditions and symptoms persist or worsen. All questions addressed and answered pt verbalized understanding. Pt discharged to [facility], [facility] noted. Normal [facility] HAV IgM Ser Qlon 06-23-2023 HAV IgM Ql (S) Negative Normal Negative [facility] Comment on above: Order Comment: Speci men Type: BLOOD SPECIMENOrdering Facility: [facility] Address: [address] [place] [address] Result Comment: No e vidence of recent infection with Hepatitis A virus. Performed By: #### 3 1204-1, 5195, 06735-2 ####[facility] LABCLIA [id number] [place] [address] [place] HBV core IgM Ser Qlon 2023 HBV core IgM Ql (S) Negative Normal Negative [facility] Comment on above: Order Comment: Speci men Type: BLOOD SPECIMENOrdering Facility: [facility] Address: [address] [place] [address] Result Comment: No e vidence of recent infection with Hepatitis B virus. Should recent infection be suspected, repeat testing may be considered 3-4 weeks after this draw. Performed By: #### 3 1204-1, 5195-, 35970-7 ####[facility] LABCLIA [id number] [place] [address] [place] HBV surface Ag Ser Qlon 06-13 HBV surface Ag Ql (S) Negative Normal Negative [facility] Comment on above: Order Comment: Speci men Type: BLOOD SPECIMENOrdering Facility: [facility] Address: [address] [place] [address] Performed By: #### 3 1204-1, 5195-3, 33543-4 ####[facility] LABCLIA [id number] [facility] [address] [place] HCV RNA SerPl SENAIT+probe-aCnc on 06-23-2023 HCV RNA SENAIT+probe Qn Not detected Normal HCV RNA not detected by PCR. [facility] Comment on above: Order Comment: Speci men Type: BLOOD SPECIMEN [facility] Address: [address] [place] [address] Performed By: #### 1 1011-4 #### [facility] CLIA [id number] [facility] [address] [place] ALLIED HEALTHon 06-22-2023 ALLIED HEALTH HNO ID: [id number] Author: SELENA AMADOR RT(R) Service: Radiology Author Type: Technologist Type: Allied Health Filed: 06/22/2023 19:47 Note Text: Radiology Service Progress Note DATE OF SERVICE: June 22, 2023 TIME: 7:46 PM PATIENT IDENTITY VERIFICATION COMPLETED USING TWO (2) STANDARD IDENTIFIERS: Name and Date of confirmed by patient verbally and Name and Date of confirmed by identification band. FALL SCREENING: Has the patient had 2 falls in the last year or 1 fall with injury or currently using an Ambulatory Assistive Device (Walker, Cane, Wheelchair, Crutches, etc.)? Emergency Room Patient: Screened in ED PATIENT GENDER DATA: Female. status: : No status: NO. PATIENT RELEVANT IMPLANT DATA REVIEWED: Not Applicable ALLERGIES: Reviewed and unchanged CONTRAST ALLERGY: NO. EXAM: CT -CONTRAST INDUCED NEPHROPATHY RISK FACTORS: Not applicable CREATININE: Creatinine Date Value Ref Range Status 06/22/2023 0.64 0.58 - 0.96 mg/dL Final 03/10/2022 0.65 0.58 - 0.96 mg/dL Final 10/27/2020 0.69 0.58 - 0.96 mg/dL Final Estimated Glomerular Filtration Rate Date Value Ref Range Status 06/22/2023 118 >=60 mL/min/1.73m? Final Comment: Estimated Glomerular Filtration Rate (eGFR) is calculated using the 2020 CKD-EPI creatinine equation. This equation utilizes serum creatinine, sex, and age as parameters. The creatinine assay has traceable calibration to isotope dilution-mass spectrometry. Refer to KDIGO guidelines for clinical interpretation. In patients with unstable renal function, e.g. those with acute kidney injury, the eGFR may not accurately reflect actual GFR. eGFR- Date Value Ref Range Status 10/27/2020 >60 Final P.O.C.T. RESULTS: POC done: Yes, See Lab Tab June 22, 2023 TREATMENT: N/A PERIPHERAL IV DATA: Inpatient - refer to [facility] documentation RADIOLOGY DEPARTMENT: CT; Exam(s) Completed: Abdomen/Pelvis SIGNATURE: RT Jose(R) PATIENT NAME: Livia Noyola DATE: June 22, 2023 TIME: 7:46 PM [facility] HNO ID: [id number] Author: DELLA BEST RDMS, RVT Service: Radiology Author Type: Finger Buff Sewer Type: Allied Health Filed: 06/22/2023 18:55 Note Text: Radiology Service Progress Note PATIENT NAME: Livia Noyola DATE OF SERVICE: June 22, 2023 TIME: 6:55 PM PATIENT IDENTITY VERIFICATION COMPLETED USING TWO (2) IDENTIFIERS: Name and Date of confirmed by patient verbally and Name and Date of confirmed by identification band. FALL SCREENING: Has the patient had 2 falls in the last year or 1 fall with injury or currently using an Ambulatory Assistive Device (Walker, Cane, Wheelchair, Crutches, etc.)? Emergency Room Patient: Screened in ED PATIENT GENDER DATA: Female. status: : No status: N/A PATIENT RELEVANT IMPLANT DATA REVIEWED: Not Applicable RADIOLOGY DEPARTMENT: Ultrasound PERIPHERAL IV DATA: Not applicable SIGNED BY: Della Best RDMS, GINETTE June 22, 2023 6:55 PM [facility] CBC W Auto Differential pane l (Bld)on 06-22-2023 Basophils (Bld) [#/Vol] 0.03 10*3/uL Normal <0.[address] [facility] Comment on above: Order Comment: Speci men Type: BLOOD SPECIMENOrdering Facility: [facility] Address: [address] [place] [address] Performed By: #### 5 7021-8 ####[facility] LABORATORYCLIA [id number] [address] [place] [address] [place] Basophils/100 WBC (Bld) 0.6 % Normal [facility] Comment on above: Order Comment: Speci men Type: BLOOD SPECIMENOrdering Facility: [facility] Address: [address] [place] [address] Performed By: #### 5 7021-8 ####[facility] LABORATORYCLIA [id number] [address] [place] [address] [place] Differential cell count method Nom (Bld) Auto [facility] Comment on above: Order Comment: Speci men Type: BLOOD SPECIMENOrdering Facility: [facility] Address: [address] [place] [address] Performed By: #### 5 7021-8 ####[facility] LABORATORYCLIA [id number] [place] [address] [place] Eosinophils (Bld) [#/Vol] 0.03 10*3/uL Normal <0.[address] [facility] Comment on above: Order Comment: Speci men Type: BLOOD SPECIMENOrdering Facility: [facility] Address: [address] [place] [address] Performed By: #### 5 7021-8 ####[facility]ORATORYCLIA [id number] [address] [place] Eosinophils/100 WBC (Bld) 0.6 % Normal [facility] Comment on above: Order Comment: Speci men Type: BLOOD SPECIMENOrdering Facility: [facility] Address: [address] [place] [address] Performed By: #### 5 7021-8 ####[facility] LABORATORYCLIA [id number] [address] [place] Erythrocyte distribution width (RBC) [Ratio] 16.5 % High 11.5-15.[address] [facility] Comment on above: Order Comment: Speci men Type: BLOOD SPECIMENOrdering Facility: [facility] Address: [address] [place] [address] Performed By: #### 5 7021-8 ####[facility] LABORATORYCLIA [id number] [address] [place], [place] [address] [place] Hematocrit (Bld) [Volume fraction] 37.7 % Normal 36.0-46.[address] [facility] Comment on above: Order Comment: Speci men Type: BLOOD SPECIMENOrdering Facility: [facility] Address: [address] [place] [address] Performed By: #### 5 7021-8 ####[facility] LABORATORYCLIA [id number] [address] [place] [address] [place] Hemoglobin (Bld) [Mass/Vol] 11.7 g/dL Normal 11.5-15.[address] [facility] Comment on above: Order Comment: Speci men Type: BLOOD SPECIMENOrdering Facility: [facility] Address: [address] [place] [address] Performed By: #### 5 7021-8 ####[facility] LABORATORYCLIA [id number] [place] [address] [place] Immature granulocytes (Bld) [#/Vol] 10*3/uL Normal <0.[address] [facility] Comment on above: Order Comment: Speci men Type: BLOOD SPECIMENOrdering Facility: [facility] Address: [address] [place] [address] Performed By: #### 5 7021-8 ####[facility] LABORATORYCLIA [id number] [place] [address] [place] Immature granulocytes/100 WBC (Bld) 0.4 % Normal [facility] Comment on above: Order Comment: Speci men Type: BLOOD SPECIMENOrdering Facility: [facility] Address: [address] [place] [address] Performed By: #### 5 7021-8 ####[facility] LABORATORYCLIA [id number] [place] [address] [place] Lymphocytes (Bld) [#/Vol] 1.87 10*3/uL Normal 1.00-4.[address] [facility] Comment on above: Order Comment: Speci men Type: BLOOD SPECIMENOrdering Facility: [facility] Address: [address] [place] [address] Performed By: #### 5 7021-8 ####[facility] LABORATORYCLIA [id number] [place] [address] [place] Lymphocytes/100 WBC (Bld) 34.4 % Normal [facility] Comment on above: Order Comment: Speci men Type: BLOOD SPECIMENOrdering Facility: [facility] Address: [address] [place] [address] Performed By: #### 5 7021-8 ####[facility] LABORATORYCLIA [id number] [place] [address] [place] MCH (RBC) [Entitic mass] 24.5 pg Low 26.0-34.[address] [facility] Comment on above: Order Comment: Speci men Type: BLOOD SPECIMENOrdering Facility: [facility] Address: [address] [place] [address] Performed By: #### 5 7021-8 ####[facility] LABORATORYCLIA [id number] [place] [address] [place] MCHC (RBC) [Mass/Vol] 31.0 g/dL Normal 30.5-36.0 [facility] Comment on above: Order Comment: Speci men Type: BLOOD SPECIMENOrdering Facility: [facility] Address: [address] [place] [address] Performed By: #### 5 7021-8 ####[facility] LABORATORYCLIA [id number] [place] [address] [place] MCV (RBC) [Entitic vol] 79.0 fL Low 80.0-100.0 L [facility] Comment on above: Order Comment: Speci men Type: BLOOD SPECIMENOrdering Facility: [facility] Address: [address] [place] [address] Performed By: #### 5 7021-8 ####[facility] LABORATORYCLIA [id number] [place] [address] [place] Monocytes (Bld) [#/Vol] 0.25 10*3/uL Normal <0.[address] [facility] Comment on above: Order Comment: Speci men Type: BLOOD SPECIMENOrdering Facility: [facility] Address: [address] [place] [address] Performed By: #### 5 7021-8 ####[facility] LABORATORYCLIA [id number] [address] [place] [address] [place] Monocytes/100 WBC (Bld) 4.6 % Normal [facility] Comment on above: Order Comment: Speci men Type: BLOOD SPECIMENOrdering Facility: [facility] Address: [address] [place] [address] Performed By: #### 5 7021-8 ####[facility] LABORATORYCLIA [id number] [address] [place] [address] [place] Neutrophils (Bld) [#/Vol] 3.23 10*3/uL Normal 1.45-7.[address] [facility] Comment on above: Order Comment: Speci men Type: BLOOD SPECIMENOrdering Facility: [facility] Address: [address] [place] [address] Performed By: #### 5 7021-8 ####[facility] LABORATORYCLIA [id number] [place] [address] [place] Neutrophils/100 WBC (Bld) 59.4 % Normal [facility] Comment on above: Order Comment: Speci men Type: BLOOD SPECIMENOrdering Facility: [facility] Address: [address] [place] [address] Performed By: #### 5 7021-8 ####[facility] LABORATORYCLIA [id number] [place] [address] [place] Nucleated RBC (Bld) [#/Vol] 10*3/uL Normal <0.[address] [facility] Comment on above: Order Comment: Speci men Type: BLOOD SPECIMENOrdering Facility: [facility] Address: [address] [place] [address] Performed By: #### 5 7021-8 ####[facility] LABORATORYCLIA [id number] [address] [place] [address] [place] Nucleated RBC/100 WBC (Bld) [Ratio] 0.0 /[address] [facility] Comment on above: Order Comment: Speci men Type: BLOOD SPECIMENOrdering Facility: [facility] Address: [address] [place] [address] Performed By: #### 5 7021-8 ####[facility] LABORATORYCLIA [id number] [place] [id number] [place] Platelet mean volume (Bld) [Entitic vol] 9.4 fL Normal 9.0-12.[address] [facility] Comment on above: Order Comment: Speci men Type: BLOOD SPECIMENOrdering Facility: [facility] Address: [address] [place] [address] Performed By: #### 5 7021-8 ####[facility] LABORATORYCLIA [id number] [place] [address] [place] Platelets (Bld) [#/Vol] 486 10*3/uL High 150-[address] [facility] Comment on above: Order Comment: Speci men Type: BLOOD SPECIMENOrdering Facility: [facility] Address: [address] [place] [address] Performed By: #### 5 7021-8 ####[facility] LABORATORYCLIA [id number] [place] [address] [place] RBC (Bld) [#/Vol] 4.77 10*6/uL Normal 3.90-5.20 [facility] Comment on above: Order Comment: Speci men Type: BLOOD SPECIMENOrdering Facility: [facility] Address: [address] [place] [address] Performed By: #### 5 7021-8 ####[facility] LABORATORYCLIA [id number] [place] [address] [place] WBC (Bld) [#/Vol] 5.43 10*3/uL Normal 3.70-11.00 [facility] Comment on above: Order Comment: Speci men Type: BLOOD SPECIMENOrdering Facility: [facility] Address: [address] [place] [address] Performed By: #### 5 7021-8 ####[facility] LABORATORYCLIA [id number] [address] [address] [place] CT ABD/PEL W IVCONon 024 CT ABD/PEL W IVCON * * *Final Report* * * DATE OF EXAM: Jun 22 2023 7:10PM PRAVEEN 0530 - CT ABD/PEL W IVCON / PROCEDURE REASON: LLQ abdominal pain * * * * Physician Interpretation * * * * EXAMINATION: CT ABDOMEN AND PELVIS WITH IV CONTRAST CLINICAL HISTORY: Left lower quadrant pain TECHNIQUE: CT of the abdomen and pelvis was performed using standard technique, scanning from just above the dome of the diaphragm to the symphysis pubis. MQ: CTAP_3 Contrast: IV: 100 ml of Omnipaque 350 : ml of CT Radiation dose: Integrated Dose-length product (DLP) for this visit = 528 mGy*cm. CT Dose Reduction Employed: Automated exposure control(AEC) and iterative recon COMPARISON: None. RESULT: Liver: No mass. Biliary: Mild biliary ductal dilatation likely the basis of prior cholecystectomy ectasia. Spleen: No mass. No splenomegaly. Pancreas: No mass or duct dilation. Adrenals: No mass. Kidneys: No mass, calculus or hydronephrosis. GI tract: No dilation or wall thickening. Normal appendix Lymph nodes: No abdominal or pelvic lymphadenopathy. Mesentery/Peritoneum : No ascites or mass. Retroperitoneum: No mass. Vasculature: Unremarkable Pelvis: No mass, ascites or fluid collection. Bones/Soft Tissues: No significant finding. Lower thorax: Unremarkable. Sinter Press Operator (topogram) images: Unremarkable. IMPRESSION: No acute intra-abdominal or pelvic process identified. Stoker Mechanic: PSCB Transcribe Date/Time: Jun 22 2023 8:25P Dictated by : CHAD SCHILLING MD This examination was interpreted and the report reviewed and electronically signed by: CHAD SCHILLING MD on Jun 22 2023 8:29PM EST [id number] CN Normal [facility] Comprehensive metabolic 2000 panelon 06-22-2023 Albumin [Mass/Vol] 4.8 g/dL Normal 3.9-4.9 [facility] Comment on above: Order Comment: Speci men Type: BLOOD SPECIMENOrdering Facility: [facility] Address: [address] [place] [address] Performed By: #### 2 4323-8, 3040-3, ####[facility] LABORATORYCLIA [id number] [address] [place], [place] [address] [place] ALP [Catalytic activity/Vol] 108 U/L Normal 34-[address] [facility] Comment on above: Order Comment: Speci men Type: BLOOD SPECIMENOrdering Facility: [facility] Address: [address] [place] [address] Performed By: #### 2 4323-8, 0-3, ####[facility] LABORATORYCLIA [id number] [address] [place], [place] [address] [place] ALT [Catalytic activity/Vol] 63 U/L High 7-[address] [facility] Comment on above: Order Comment: Speci men Type: BLOOD SPECIMENOrdering Facility: [facility] Address: [address] [place] [address] Performed By: #### 2 4323-8, 3039-3, ####[facility] LABORATORYCLIA [id number] [place] [address] [place] Anion gap [Moles/Vol] 13 mmol/L Normal 9-18 [facility] Comment on above: Order Comment: Speci men Type: BLOOD SPECIMENOrdering Facility: [facility] Address: [address] [place] [address] Performed By: #### 2 4323-8, 0-3, ####[facility] LABORATORYCLIA [id number] [place] [address] [place] AST [Catalytic activity/Vol] 109 U/L High 13-[address] [facility] Comment on above: Order Comment: Speci men Type: BLOOD SPECIMENOrdering Facility: [facility] Address: [address] [place] [address] Performed By: #### 2 4323-8, 3040-3, ####[facility] LABORATORYCLIA [id number] [address] [place], [place] [address] [place] Bilirubin [Mass/Vol] 0.4 mg/dL Normal 0.2-1.3 [facility] Comment on above: Order Comment: Speci men Type: BLOOD SPECIMENOrdering Facility: [facility] Address: [place] [address] Performed By: #### 2 4323-8, 0-3, ####[facility] LABORATORYCLIA [id number] [address] [place], [place] [address] [place] Calcium [Mass/Vol] 9.6 mg/dL Normal 8.5-10.2 [facility] Comment on above: Order Comment: Speci men Type: BLOOD SPECIMENOrdering Facility: [facility] Address: [place] [address] Performed By: #### 2 4323-8, 3039-3, ####[facility] LABORATORYCLIA [id number] [address] [place] [address] [place] Chloride [Moles/Vol] 102 mmol/L Normal 97-105 [facility] Comment on above: Order Comment: Speci men Type: BLOOD SPECIMENOrdering Facility: [facility] Address: [place] [address] Performed By: #### 2 4323-8, 3, ####[facility] LABORATORYCLIA [id number] [place] [address] [place] CO2 [Moles/Vol] 23 mmol/L Normal 22-[address] [facility] Comment on above: Order Comment: Speci men Type: BLOOD SPECIMENOrdering Facility: [facility] Address: [address] [place] [address] Performed By: #### 2 4323-8, 3039-3, ####[facility] LABORATORYCLIA [id number] [place] [address] [place] Creatinine [Mass/Vol] 0.64 mg/dL Normal 0.58-0.96 [facility] Comment on above: Order Comment: Speci men Type: BLOOD SPECIMENOrdering Facility: [facility] Address: [address] [place] [address] Performed By: #### 2 4323-8, 3040-3, 11139-4 ####[facility] LABORATORYCLIA [id number] [place] [address] [place] Creatinine and Glomerular filtration rate.predicted panel (S/P/Bld) 118 mL/min/1.73m??? Normal >=[address] [facility] Comment on above: Order Comment: Roselyn conway Type: BLOOD SPECIMENOrdering Facility: [facility] Address: [address] [place] [address] Result Comment: Shelley mated Glomerular Filtration Rate (eGFR) is calculated using the 2020 CKD-EPI creatinine equation. This equation utilizes serum creatinine, sex, and age as parameters. The creatinine assay has traceable calibration to isotope dilution-mass spectrometry. Refer to KDIGO guidelines for clinical interpretation. In patients with unstable renal function, e.g. those with acute kidney injury, the eGFR may not accurately reflect actual GFR. Performed By: #### 2 4323-8, 3040-3, ####[facility] LABORATORYCLIA [id number] [place] [id number] [place] Glucose [Mass/Vol] 102 mg/dL High 74-99 [facility] Comment on above: Order Comment: Roselyn conway Type: BLOOD SPECIMENOrdering Facility: [facility] Address: [address] [place] [address] Result Comment: The [place] Diabetes Association (ADA) provides guidance for cutoff values for fasting glucose and random glucose. The ADA defines fasting as no caloric intake for at least 8 hours. Fasting plasma glucose results between 100 to 125 mg/dL indicate increased risk for diabetes (prediabetes). Fasting plasma glucose results greater than or equal to 126 mg/dL meet the criteria for diagnosis of diabetes. In the absence of unequivocal hyperglycemia, results should be confirmed by repeat testing. In a patient with classic symptoms of hyperglycemia or hyperglycemic crisis, random plasma glucose results greater than or equal to 200 mg/dL meet the criteria for diagnosis of diabetes. Reference: Standards of Medical Care in Diabetes 2016, [place] Diabetes Association. Diabetes Care. 2016.39(Suppl 1). Performed By: #### 2 4323-8, 3043, ####[facility] LABORATORYCLIA [id number] [address] [place], [place] [address] [place] Potassium [Moles/Vol] 3.8 mmol/L Normal 3.7-5.1 [facility] Comment on above: Order Comment: Speci men Type: BLOOD SPECIMENOrdering Facility: [facility] Address: [address] [place] [address] Performed By: #### 2 4323-8, 3, ####[facility] LABORATORYCLIA [id number] [address] [place], [place] [address] [place] Protein [Mass/Vol] 8.2 g/dL High 6.3-8.0 [facility] Comment on above: Order Comment: Speci men Type: BLOOD SPECIMENOrdering Facility: [facility] Address: [address] [place] [address] Performed By: #### 2 4323-8, 3, ####[facility] LABORATORYCLIA [id number] [place] [id number] [place] Sodium [Moles/Vol] 138 mmol/L Normal 136-144 [facility] Comment on above: Order Comment: Speci men Type: BLOOD SPECIMENOrdering Facility: [facility] Address: [address] [place] [address] Performed By: #### 2 4323-8, 3, ####[facility] LABORATORYCLIA [id number] [place] [id number] [place] Urea nitrogen [Mass/Vol] 8 mg/dL Normal 7-[address] [facility] Comment on above: Order Comment: Speci men Type: BLOOD SPECIMENOrdering Facility: [facility] Address: [address] [place] [address] Performed By: #### 2 4323-8, 3039-3, ####[facility] LABORATORYCLIA [id number] [place] [id number] [place] ECG COMPLETEon 06-22-2023 ECG COMPLETE Ventricular Rate : 105 BPM Atrial Rate : 103 BPM P-R Interval : 152 ms QRS Duration : 77 ms Q-T Interval : 324 ms QTC Calculation(Bazett) : 429 ms Calculated P [place] : 42 degrees Calculated R [place] : 56 degrees Calculated T [place] : 49 degrees Sinus tachycardia Low voltage, precordial leads Anteroseptal infarct, old Abnormal ECG no stemi 181 Confirmed by MD SEN BRENT ([id number]), assistant production editor STEPHENIE ERIC ([id number]) on 06/23/2023 12:09:36 PM NAME : LIVIA NOYOLA PID : [id number] : 1985 Gender : Female Race : ORD : [id number] Procedure Date : Jun 22 2023 18:10:13 Edit Date : Jun 23 2023 12:09:40 Diagnosis: Sinus tachycardia Low voltage, precordial leads Anteroseptal infarct, old Abnormal ECG no stemi 1814 Confirmed by MD SEN BRENT ([id number]), assistant production editor STEPHENIE ERIC ([id number]) on 06/23/2023 12:09:36 PM Test Reason : Tachycardia Location : 502 : [facility] ED Overread By : MD SEN BRENT Edited By : STEPHENIE ERIC Referred By : , Acquired by : DAVID [facility] ED NOTEon 06-22-2023 ED NOTE HNO ID: [id number] Author: DENNIS CAMARGO RN Service: ? Author Type: Registered Nurse Type: ED Notes Filed: 06/22/2023 21:56 Note Text: Assumed care of pt at this time and received report from previous RN. [facility] ED NOTE HNO ID: [id number] Author: MATILDE DAVIS RN Service: Nursing Author Type: Registered Nurse Type: ED Notes Filed: 06/22/2023 17:38 Note Text: Pt presents with LLQ pain that radiates to back that began this morning but worsened one hour prior to arrival. Denies urinary complaints. [facility] ED PROV NOTEon 06-22-2023 ED PROV NOTE HNO ID: [id number] Author: EVGENY SEN MD Service: Emergency Medicine Author Type: Physician Type: ED Provider Notes Filed: 06/22/2023 21:59 Note Text: ED Provider Note Patient Name: Livia Noyola : 1985 SERVICE DATE: 06/22/23 History Patient presents with: Abdominal Pain: LLQ radiating to back 38-year-old female presents to the emergency room complaining of left lower quadrant abdominal pain. She states that it began this morning and got worse this afternoon. She describes her pain as 8 out of 10 in intensity and sharp in nature. She states that she has a history of ruptured hemorrhagic ovarian cyst. She has required surgery for this in the past. She denies any discharge from her vagina. She is not currently menstruating. She admits to associated nausea, but no vomiting. She denies any diarrhea or constipation. She denies any dysuria or hematuria. She states that she took Tylenol and Motrin for her pain this morning with some relief. 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 Ovarian cyst PAST SURGICAL HISTORY Procedure Laterality Date CHOLECYSTECTOMY PAST SURGICAL HISTORY OF 2013 removal of ovarian cysts, fibroid and endometriosis PAST SURGICAL HISTORY OF Emergency surgery on Lt ovarian cyst torsion and removal ovarian cyst PAST SURGICAL HISTORY OF 07/06/2018 LAPAROSCOPY, SURGICAL; WITH FULGURATION OR EXCISION OF LESIONS OF THE OVARY, PELVIC VISCERA, OR PERITONEAL SURFACE BY ANY METHOD FAMILY HISTORY Problem Relation Age of Onset Diabetes Mother Hypertension Mother Hyperlipidemia Mother Diabetes Father Hypertension Father Hyperlipidemia Father Heart Father bypass surgery, stents, PR Social History Tobacco Use Smoking status: Never Passive exposure: Past Smokeless tobacco: Never Substance and Sexual Activity Alcohol use: Yes Comment: socially Drug use: No Sexual activity: Yes Partners: Male Comment: for 5 years ALLERGIES Allergen Reactions Morphine Other: See Comments Spasms Review of Systems HENT: Negative. Eyes: Negative. Respiratory: Negative. Cardiovascular: Negative. Gastrointestinal: Positive for abdominal pain and nausea. Negative for constipation, diarrhea and vomiting. Genitourinary: Negative. Musculoskeletal: Negative. Skin: Negative. Neurological: Negative. Psychiatric/Behavior al: Negative. All other systems reviewed and are negative. Physical Exam Vitals BP Pulse Temp Temp src Resp SpO2 Weight Height 06/22/23 1736 06/22/23 1734 06/22/23 1734 06/22/23 1734 06/22/23 1734 06/22/23 1734 06/22/23 1734 -- 159/94 (!) 128 36.2 ?C (97.2 ?F) Oral 18 100 % 83 kg (183 lb) Physical Exam Vitals and nursing note reviewed. Constitutional: General: She is awake. She is in acute distress. Appearance: She is well-developed and overweight. She is ill-appearing. She is not toxic-appearing or diaphoretic. HENT: Head: Normocephalic and atraumatic. Jaw: There is normal jaw occlusion. Eyes: General: Lids are normal. Vision grossly intact. Gaze aligned appropriately. Extraocular Movements: Extraocular movements intact. Conjunctiva/sclera: Conjunctivae normal. Pupils: Pupils are equal, round, and reactive to light. Neck: Trachea: Trachea and phonation normal. Cardiovascular: Rate and Rhythm: Regular rhythm. Tachycardia present. Pulses: Normal pulses. Heart sounds: Normal heart sounds. Pulmonary: Effort: Pulmonary effort is normal. Breath sounds: Normal breath sounds. Abdominal: General: Bowel sounds are normal. Palpations: Abdomen is soft. Tenderness: There is abdominal tenderness in the left lower quadrant. There is no right CVA tenderness, left CVA tenderness, guarding or rebound. Negative signs include Galloway's sign and McBurney's sign. Musculoskeletal: General: Normal range of motion. Cervical back: Full passive range of motion without pain, normal range of motion and neck supple. Skin: General: Skin is warm and dry. Neurological: General: No focal deficit present. Mental Status: She is alert and oriented to person, place, and time. GCS: GCS eye subscore is 4. GCS verbal subscore is 5. GCS motor subscore is 6. Sensory: Sensation is intact. Motor: Motor function is intact. Psychiatric: Attention and Perception: Attention and perception normal. Mood and Affect: Mood is anxious. Speech: Speech normal. Behavior: Behavior normal. Behavior is cooperative. Thought Content: Thought content normal. Cognition and Memory: Cognition and memory normal. Judgment: Judgment normal. Diagnostic Testing ED Labs Ordered and Reviewed URINALYSIS WITH MICROSCOPIC, REFLEX CULTURE - Abnormal; Notable for the following components: Result Value Ref Range (more content not included)... Normal [facility] ED Triage Noteon 06-22-2023 ED Triage Note HNO ID: [id number] Author: TABBY LUCIANO PA-C Service: ? Author Type: Physician Yield Improvement Engineer Type: ED Triage Notes Filed: 06/22/2023 17:43 Note Text: ED INTAKE NOTE Patient Name: Livia Noyola Service Date: 06/22/23 BRIEF HPI: 38 y/o female presents with left sided abdominal pain; sharp stabbing that radiates to her back. Started as dull ache that she woke up with this morning that acutely exacerbated 1 hour ago. Currently 8/10 severity. History of hemorrhagic ovarian cyst requiring surgery. Does not feel similar. LMP 1 week ago No N/V/D. 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 BRIEF EXAM: General: Young female in discomfort. Lungs: CTABL. Abdomen: Localized tenderness to LLQ abdomen, no rigidity, no rebound tenderness, no distension or abnormal BS. No CVA tenderness BL. INTAKE WORKUP: UA, labs, pelvic US, CT abdomen/pelvis. Clinical Impression ICD-10-CM 1. LLQ abdominal pain R10.32 2. Left flank pain R10.9 The patient was seen by me in intake for a brief history and physical obtained for triage reasons only. My exam is intended to be an initial medical screening exam for disposition within our ED with limited initial orders placed, when appropriate, to expedite care by the treating team. SIGNATURE: Tabby Luciano PA-C Normal [facility] HCG Preg Ur Qlon 06-22-2023 HCG ( test) Ql (U) Negative Normal Negative [facility] Comment on above: Order Comment: Speci men Type: URINE SPECIMENOrdering Facility: [facility] Address: [address] [place] [address] [place] [address] Result Comment: This test is intended to aid in the early detection of . Very dilute urine samples, as indicated by a low specific gravity, may not contain premium representative levels of hCG. This test detects intact hCG only. This test does not reliably detect hCG degradation products, including free-beta subunit and beta-core fragment. Therefore, this test may show reduced reactivity in urine after 8 weeks gestation. A number of conditions other than , including trophoblastic disease and certain non-trophoblastic neoplasms cause elevated levels of hCG. As with any assay employing mouse antibodies, the possibility exists for interference by human anti-mouse antibodies (HAMA) in the specimen. The test provides a presumptive diagnosis for . Performed By: #### 2 106-3 ####[facility]ORATORYCLIA [id number] [place] [id number] [place] Lipase SerPl-cCncon 06-22-19 24 Lipase [Catalytic activity/Vol] 34 U/L Normal 16-[address] [facility] Comment on above: Order Comment: Speci men Type: BLOOD SPECIMENOrdering Facility: [facility] Address: [address] [place] [address] Performed By: #### 2 4323-8, 3040-3, 29656-8 ####[facility]ORYCLIA [id number] [place] [id number] [place] Magnesium SerPl-mCncon 06-22 Magnesium [Mass/Vol] 2.2 mg/dL Normal 1.7-2.3 [facility] Comment on above: Order Comment: Speci men Type: BLOOD SPECIMENOrdering Facility: [facility] Address: [address] [place] [address] Performed By: #### 2 4323-8, 3040-3, 02920-8 ####[facility] NETWORKCLIA [id number] [place] [id number] [place] US DOPPLER COMPLETEon 2023 US DOPPLER COMPLETE * * *Final Report* * * DATE OF EXAM: Jun 22 2023 6:54PM [facility] 1033 - US DOPPLER COMPLETE / PROCEDURE REASON: Ovarian torsion * * * * Physician Interpretation * * * * EXAMINATION: TRANSVAGINAL AND LIMITED TRANSABDOMINAL FEMALE PELVIC ULTRASOUND CLINICAL HISTORY: Left lower quadrant pain x1 day. LMP: Approximately one week ago. TECHNIQUE: Sonography of the pelvis was performed by transvaginal and transabdominal (limited) techniques. Images were obtained and stored in a permanent archive. MQ: [facility] COMPARISON: None RESULT: Uterus: -Size: 8.1 x 3.7 x 5.3 cm -Orientation: Anteverted -Endometrial echo complex: Evaluation of the endometrium was adequate. No endometrial abnormality. The endometrial echo complex measured 0.4 cm. -Cervix: Unremarkable. -Adenomyosis assessment: There are no sonographic findings of adenomyosis. -Fibroids: There are no fibroids. Right Ovary: 3.5 x 2.2 x 2.5 cm - Normal sonographic appearance with physiologic follicles. Doppler imaging showed normal arterial and venous flow throughout the ovary. Left Ovary: 3.0 x 1.6 x 1.9 cm - Normal sonographic appearance with physiologic follicles. Doppler imaging showed normal arterial and venous flow throughout the ovary. Free Fluid: No abnormal free fluid is present. IMPRESSION: Normal sonographic appearance of the female pelvis. Stoker Mechanic: ANTONIO Transcribe Date/Time: Jun 22 2023 7:44P Dictated by : Vasu BURNS MD This examination was interpreted and the report reviewed and electronically signed by: Vasu BURNS MD on Jun 22 2023 7:48PM EST [id number] CN [facility] FEMALE PELVIS TRANSABD LT Don 06-22-2023 FEMALE PELVIS TRANSABD LTD * * *Final Report* * * DATE OF EXAM: Jun 22 2023 6:54PM [facility] 1059 - US FEMALE PELVIS TRANSABD LTD / PROCEDURE REASON: Ovarian torsion * * * * Physician Interpretation * * * * EXAMINATION: TRANSVAGINAL AND LIMITED TRANSABDOMINAL FEMALE PELVIC ULTRASOUND CLINICAL HISTORY: Left lower quadrant pain x1 day. LMP: Approximately one week ago. TECHNIQUE: Sonography of the pelvis was performed by transvaginal and transabdominal (limited) techniques. Images were obtained and stored in a permanent archive. MQ: [facility] COMPARISON: None RESULT: Uterus: -Size: 8.1 x 3.7 x 5.3 cm -Orientation: Anteverted -Endometrial echo complex: Evaluation of the endometrium was adequate. No endometrial abnormality. The endometrial echo complex measured 0.4 cm. -Cervix: Unremarkable. -Adenomyosis assessment: There are no sonographic findings of adenomyosis. -Fibroids: There are no fibroids. Right Ovary: 3.5 x 2.2 x 2.5 cm - Normal sonographic appearance with physiologic follicles. Doppler imaging showed normal arterial and venous flow throughout the ovary. Left Ovary: 3.0 x 1.6 x 1.9 cm - Normal sonographic appearance with physiologic follicles. Doppler imaging showed normal arterial and venous flow throughout the ovary. Free Fluid: No abnormal free fluid is present. IMPRESSION: Normal sonographic appearance of the female pelvis. Stoker Mechanic: ANTONIO Transcribe Date/Time: Jun 22 2023 7:44P Dictated by : Vasu BURNS MD This examination was interpreted and the report reviewed and electronically signed by: Vasu BURNS MD on Jun 22 2023 7:48PM EST [id number] CN [facility] US FEMALE PELVIS TRANSVAGon 06-22-2023 US FEMALE PELVIS TRANSVAG * * *Final Report* * * DATE OF EXAM: Jun 22 2023 6:54PM [facility] 1060 - US FEMALE PELVIS TRANSVAG / PROCEDURE REASON: Ovarian torsion * * * * Physician Interpretation * * * * EXAMINATION: TRANSVAGINAL AND LIMITED TRANSABDOMINAL FEMALE PELVIC ULTRASOUND CLINICAL HISTORY: Left lower quadrant pain x1 day. LMP: Approximately one week ago. TECHNIQUE: Sonography of the pelvis was performed by transvaginal and transabdominal (limited) techniques. Images were obtained and stored in a permanent archive. MQ: [facility]_2021 COMPARISON: None RESULT: Uterus: -Size: 8.1 x 3.7 x 5.3 cm -Orientation: Anteverted -Endometrial echo complex: Evaluation of the endometrium was adequate. No endometrial abnormality. The endometrial echo complex measured 0.4 cm. -Cervix: Unremarkable. -Adenomyosis assessment: There are no sonographic findings of adenomyosis. -Fibroids: There are no fibroids. Right Ovary: 3.5 x 2.2 x 2.5 cm - Normal sonographic appearance with physiologic follicles. Doppler imaging showed normal arterial and venous flow throughout the ovary. Left Ovary: 3.0 x 1.6 x 1.9 cm - Normal sonographic appearance with physiologic follicles. Doppler imaging showed normal arterial and venous flow throughout the ovary. Free Fluid: No abnormal free fluid is present. IMPRESSION: Normal sonographic appearance of the female pelvis. Stoker Mechanic: ANTONIO Transcribe Date/Time: Jun 22 2023 7:44P Dictated by : Vasu BURNS MD This examination was interpreted and the report reviewed and electronically signed by: Vasu BURNS MD on Jun 22 2023 7:48PM EST [id number] [facility] Urinalysis complete panel (U )on 06-22-2023 Bacteria LM.HPF (Urine sed) [#/Area] Few Abnormal None Seen [facility] Comment on above: Order Comment: Speci men Type: URINE SPECIMENOrdering Facility: [facility] Address: [address] [place] [address] Performed By: #### 2 4356-8 ####[facility]ORATORYCLIA [id number] [address] [place] [address] [place] Bilirubin Ql (U) Negative Normal Negative [facility] Comment on above: Order Comment: Speci men Type: URINE SPECIMENOrdering Facility: [facility] Address: [address] [place] [address] Performed By: #### 2 4356-8 ####[facility]ORATORYCLIA [id number] [address] [place] [address] [place] Clarity (Unsp spec) Clear Normal Clear [facility] Comment on above: Order Comment: Speci men Type: URINE SPECIMENOrdering Facility: [facility] Address: [address] [place] [address] Performed By: #### 2 4356-8 ####[facility]ORATORYCLIA [id number] [address] [place] [address] [place] Color (U) Yellow Normal Yellow [facility] Comment on above: Order Comment: Speci men Type: URINE SPECIMENOrdering Facility: [facility] Address: [address] [place] [address] Performed By: #### 2 4356-8 ####[facility]ORATORYCLIA [id number] [address] [place] [address] [place] Epithelial cells LM.HPF (Urine sed) [#/Area] Few Normal [facility] Comment on above: Order Comment: Speci men Type: URINE SPECIMENOrdering Facility: [facility] Address: [address] [place] [address] Performed By: #### 2 4356-8 ####[facility]ATORYCLIA [id number] [address] [place] [address] [place] Glucose Test strip (U) [Mass/Vol] Negative Normal Negative [facility] Comment on above: Order Comment: Speci men Type: URINE SPECIMENOrdering Facility: [facility] Address: [address] [place] [address] Performed By: #### 2 4356-8 ####[facility]ORATORYCLIA [id number] [address] [place] [address] [place] Hemoglobin Ql (U) Negative Normal Negative [facility] Comment on above: Order Comment: Speci men Type: URINE SPECIMENOrdering Facility: [facility] Address: [address] [place] [address] Performed By: #### 2 4356-8 ####[facility]ORATORYCLIA [id number] [place] [address] [place] Ketones Ql (U) Trace Abnormal Negative [facility] Comment on above: Order Comment: Speci men Type: URINE SPECIMENOrdering Facility: [facility] Address: [address] [place] [address] Performed By: #### 2 4356-8 ####[facility]ATORYCLIA [id number] [address] [place] Leukocyte esterase Test strip Ql (U) Negative Normal Negative [facility] Comment on above: Order Comment: Speci men Type: URINE SPECIMENOrdering Facility: [facility] Address: [address] [place] [address] Performed By: #### 2 4356-8 ####[facility]ATORYCLIA [id number] [address] [place] Nitrite Ql (U) Negative Normal Negative [facility] Comment on above: Order Comment: Speci men Type: URINE SPECIMENOrdering Facility: [facility] Address: [address] [place] [address] Performed By: #### 2 4356-8 ####[facility]ORYCLIA [id number] [address] [place] pH (U) 6.5 [pH] Normal 5.0-8.[address] [facility] Comment on above: Order Comment: Speci men Type: URINE SPECIMENOrdering Facility: [facility] Address: [address] [place] [address] Performed By: #### 2 4356-8 ####[facility]ATORYCLIA [id number] [address] [place] [address] [place] Protein (U) [Mass/Vol] Negative Normal Negative [facility] Comment on above: Order Comment: Speci men Type: URINE SPECIMENOrdering Facility: [facility] Address: [address] [place] [address] Performed By: #### 2 4356-8 ####[facility]ORATORYCLIA [id number] [place] [address] [place] RBC LM.HPF (Urine sed) [#/Area] 0-3 /HPF Normal 0-3 /HPF [facility] Comment on above: Order Comment: Speci men Type: URINE SPECIMENOrdering Facility: [facility] Address: [address] [place] [address] Performed By: #### 2 4356-8 ####[facility]ORATORYCLIA [id number] [place] [address] [place] Specific gravity (U) [Rel density] 1.020 Normal 1.005-1.[address] [facility] Comment on above: Order Comment: Speci men Type: URINE SPECIMENOrdering Facility: [facility] Address: [address] [place] [address] Performed By: #### 2 4356-8 ####[facility]ORATORYCLIA [id number] [address] [place] Urobilinogen Ql (U) 1.0 EU/dL Normal 0.2-1.0 EU/dL [facility] Comment on above: Order Comment: Speci men Type: URINE SPECIMENOrdering Facility: [facility] Address: [address] [place] [address] Performed By: #### 2 4356-8 ####[facility]ORATORYCLIA [id number] [address] [place] WBC LM.HPF (Urine sed) [#/Area] 0-5 /HPF Normal 0-5 /HPF [facility] Comment on above: Order Comment: Speci men Type: URINE SPECIMENOrdering Facility: [facility] Address: [address], [place] [address] Performed By: #### 2 4356-8 ####[facility] LABORATORYIA [id number] [address] [address] [place] Basic Metabolic Profon 05-30 Anion gap [Moles/Vol] 12 mmol/L Normal 9-17 [facility] Comment on above: Performed By: #### B MP, LIP, LIVP, CDP, HCG #### [facility] [address] [place], [place] [id number] Biological Engineer: Jennifer Freire MD BUN/CRE Ratio 7 Low 9-20 [facility] Comment on above: Performed By: #### B MP, LIP, LIVP, CDP, HCG #### [facility] [address] [place], [place] [id number] Biological Engineer: Jennifer Freire MD Calcium [Mass/Vol] 9.8 mg/dL Normal 8.6-10.4 [facility] Comment on above: Performed By: #### B MP, LIP, LIVP, CDP, HCG #### [facility] [address] [place], [place] [id number] Biological Engineer: Jennifer Freire MD Chloride [Moles/Vol] 99 mmol/L Normal 98-107 [facility] Comment on above: Performed By: #### B MP, LIP, LIVP, CDP, HCG #### [facility] [address] [place], [place] [address] Biological Engineer: Jennifer Freire MD CO2 [Moles/Vol] 24 mmol/L Normal 20-31 [facility] Comment on above: Performed By: #### B MP, LIP, LIVP, CDP, HCG #### [facility] [address] [place], [place] [id number] Biological Engineer: Jennifer Freire MD Creatinine [Mass/Vol] 0.7 mg/dL Normal 0.5-0.9 [facility] Comment on above: Performed By: #### B MP, LIP, LIVP, CDP, HCG #### [facility] [address] [place] [address] Biological Engineer: Jennifer Freire MD GFR/1.73 sq M.predicted among non-blacks MDRD (S/P/Bld) [Vol rate/Area] mL/min/{1.73_m2} Normal >60 [facility] Comment on above: Result Comment: These results are not intended for use in patients <18 years of age. eGFR results are calculated without a race factor using the 2020 CKD-EPI equation. Careful clinical correlation is recommended, particularly when comparing to results calculated using previous equations. The CKD-EPI equation is less accurate in patients with extremes of muscle mass, extra-renal metabolism of creatine, excessive creatine ingestion, or following therapy that affects renal tubular secretion. Performed By: #### B MP, LIP, LIVP, CDP, HCG #### [facility] [address] [place] [address] Biological Engineer: Jennifer Freire MD Glucose [Mass/Vol] 97 mg/dL Normal 70-99 [facility] Comment on above: Performed By: #### B MP, LIP, LIVP, CDP, HCG #### [facility] [address] [place] [address] Biological Engineer: Jennifer Freire MD Potassium [Moles/Vol] 3.9 mmol/L Normal 3.7-5.3 [facility] Comment on above: Performed By: #### B MP, LIP, LIVP, CDP, HCG #### [facility] [address] [place] [address] Biological Engineer: Jennifer Freire MD Sodium [Moles/Vol] 135 mmol/L Normal 135-144 [facility] Comment on above: Performed By: #### B MP, LIP, LIVP, CDP, HCG #### [facility] [address] [place] [id number] Biological Engineer: Jennifer Freire MD Urea nitrogen [Mass/Vol] 5 mg/dL Low 6-20 [facility] Comment on above: Performed By: #### B MP, LIP, LIVP, CDP, HCG #### [facility] [address] [place] [address] Biological Engineer: Jennifer Freire MD CBC with Diffon 05-30-2023 Abs. Basophil 0.02 k/uL Normal 0.00-0.20 [facility] Comment on above: Performed By: #### B MP, LIP, LIVP, CDP, HCG #### [facility] [address] [place] [address] Biological Engineer: Jennifer Freire MD Abs.Imm.Granulocyte 0.00 k/uL Normal 0.00-0.30 [facility] Comment on above: Performed By: #### B MP, LIP, LIVP, CDP, HCG #### [facility] [address] [place] [id number] Biological Engineer: Jennifer Freire MD Abs.Neutrophil (Seg) 2.21 k/uL Low 2.5-7.0 [facility] Comment on above: Performed By: #### B MP, LIP, LIVP, CDP, HCG #### [facility] [address] [place] [address] Biological Engineer: Jennifer Freire MD Basophils/100 WBC (Bld) 0 % Normal 0-2 [facility] Comment on above: Performed By: #### B MP, LIP, LIVP, CDP, HCG #### [facility] [address] [id number] Biological Engineer: Jennifer Freire MD Eosinophils (Bld) [#/Vol] 0.05 10*3/uL Normal 0.00-0.40 [facility] Comment on above: Performed By: #### B MP, LIP, LIVP, CDP, HCG #### [facility] [address] [place], [place] [id number] Biological Engineer: Jennifer Freire MD Eosinophils/100 WBC (Bld) 1 % Normal 0-5 [facility] Comment on above: Performed By: #### B MP, LIP, LIVP, CDP, HCG #### [facility] [address] [id number] Biological Engineer: Jennifer Freire MD Erythrocyte distribution width (RBC) [Ratio] 16.5 % High 12.1-15.2 [facility] Comment on above: Performed By: #### B MP, LIP, LIVP, CDP, HCG #### [facility] [address] [place] [address] Biological Engineer: Jennifer Freire MD Hematocrit (Bld) [Volume fraction] 37.2 % Normal 36.0-46.0 [facility] Comment on above: Performed By: #### B MP, LIP, LIVP, CDP, HCG #### [facility] [address] [id number] Biological Engineer: Jennifer Freire MD Hemoglobin (Bld) [Mass/Vol] 11.7 g/dL Low 12.0-16.0 [facility] Comment on above: Performed By: #### B MP, LIP, LIVP, CDP, HCG #### [facility] [address] [place] [address] Biological Engineer: Jennifer Freire MD Immature granulocytes/100 WBC (Bld) 0 % Normal 0-5 [facility] Comment on above: Performed By: #### B MP, LIP, LIVP, CDP, HCG #### [facility] [address] [id number] Biological Engineer: Jennifer Freire MD Lymphocytes (Bld) [#/Vol] 2.45 10*3/uL Normal 1.00-4.80 [facility] Comment on above: Performed By: #### B MP, LIP, LIVP, CDP, HCG #### [facility] [address] [place] [address] Biological Engineer: Jennifer Freire MD Lymphocytes/100 WBC (Bld) 48 % High 15-40 [facility] Comment on above: Performed By: #### B MP, LIP, LIVP, CDP, HCG #### [facility] [address] [place] [address] Biological Engineer: Jennifer Freire MD MCH (RBC) [Entitic mass] 24.2 pg Low 26.0-34.0 [facility] Comment on above: Performed By: #### B MP, LIP, LIVP, CDP, HCG #### [facility] [address] [place] [address] Biological Engineer: Jennifer Freire MD MCHC (RBC) [Mass/Vol] 31.5 g/dL Normal 31.0-37.0 [facility] Comment on above: Performed By: #### B MP, LIP, LIVP, CDP, HCG #### [facility] [address] [place] [address] Biological Engineer: Jennifer Freire MD MCV (RBC) [Entitic vol] 76.9 fL Low 80.0-100.0 [facility] Comment on above: Performed By: #### B MP, LIP, LIVP, CDP, HCG #### [facility] [address] [place] [address] Biological Engineer: Jennifer Freire MD Monocytes (Bld) [#/Vol] 0.37 10*3/uL Normal 0.00-1.00 [facility] Comment on above: Performed By: #### B MP, LIP, LIVP, CDP, HCG #### [facility] [address] [place] [address] Biological Engineer: Jennifer Freire MD Monocytes/100 WBC (Bld) 7 % Normal 4-8 M [facility] Comment on above: Performed By: #### B MP, LIP, LIVP, CDP, HCG #### [facility] [address] [place], [place] [phone] (302) Biological Engineer: Jennifer Freire MD Neutrophil (Seg) 43 % Low 47-75 [facility] Comment on above: Performed By: #### B MP, LIP, LIVP, CDP, HCG #### [facility] [address] [place], [place] [phone] (061) Biological Engineer: Jennifer Freire MD Platelet mean volume (Bld) [Entitic vol] 8.7 fL Normal 6.0-12.0 [facility] Comment on above: Performed By: #### B MP, LIP, LIVP, CDP, HCG #### [facility] [address] [place], [place] [phone] (244) Biological Engineer: Jennifer Freire MD Platelets (Bld) [#/Vol] 512 10*3/uL High 140-450 [facility] Comment on above: Performed By: #### B MP, LIP, LIVP, CDP, HCG #### [facility] [address] [place] [address] Biological Engineer: Jennifer Freire MD RBC (Bld) [#/Vol] 4.84 10*6/uL Normal 4.00-5.20 [facility] Comment on above: Performed By: #### B MP, LIP, LIVP, CDP, HCG #### [facility] [address] [place], [place] [phone] (715) Biological Engineer: Jennifer Freire MD WBC (Bld) [#/Vol] 5.1 10*3/uL Normal 3.5-11.0 [facility] Comment on above: Performed By: #### B MP, LIP, LIVP, CDP, HCG #### [facility] [address] [place], [place] [phone] (853) Biological Engineer: Jennifer Freire MD CT ABDOMEN PELVIS W IV CONTR Agustín 05-30-2023 CT ABDOMEN PELVIS W IV CONTRAST TECHNIQUE: CT abdomen and pelvis. Helically acquired axial images of the abdomen and pelvis from the diaphragm to the iliac crest and the iliac crest to the symphysis pubis. Sagittal and coronal multiplanar reconstructions. . HISTORY: Left-sided abdominal pain COMPARISON: CT abdomen/pelvis dated 05/08/2023 FINDINGS: LUNG BASES/LOWER CHEST: Normal. LIVER: Normal SPLEEN: Normal ADRENAL GLANDS: Normal BILIARY TREE/GALLBLADDER/LONG CREAS: Patient is post cholecystectomy. Surgical clips are seen in the gallbladder fossa. The pancreas appears unremarkable. Mild prominent common bile duct is seen, which can be seen in the postcholecystectomy state. KIDNEYS: Normal RETROPERITONEUM: Normal. No aortic aneurysm. IVC normal. No retroperitoneal adenopathy. BOWEL: Normal abdominal gas pattern, without free air. PELVIS: MSK: Normal Extra-abdominal soft tissues: Normal IMPRESSION: No acute abnormality. Prior cholecystectomy. Interpreted by: Marilyn Narvaez MD Signed by: Marilyn Narvaez MD 05/30/23 Final result Normal [facility] HCG Screen, Bloodon 05-30-20 HCG Screen, Blood Negative Normal NEG [facility] Comment on above: Result Comment: Spec imens with hCG levels near the threshold of the test (25 mIU/mL) may give a negative or indeterminate result. In such cases, another test should be performed with a new specimen in 48-72 hours. If early is suspected clinically in this setting, correlation with quantitative serum b-hCG level is suggested. [facility] has confirmed the use of plasma for this test. This has not been cleared or approved by the U.S. Food and Drug Administration. The FDA has determined that such clearance is not necessary. Performed By: #### B MP, LIP, LIVP, CDP, HCG #### [facility] [address] [place] [address] Biological Engineer: Jennifer Freire MD Lipaseon 05-30-2023 Lipase [Catalytic activity/Vol] 28 U/L Normal 13-60 [facility] Comment on above: Performed By: #### B MP, LIP, LIVP, CDP, HCG #### [facility] [address] [place], [place] [phone] Biological Engineer: Jennifer Freire MD Liver Profileon 05-30-2023 Albumin [Mass/Vol] 4.3 g/dL Normal 3.5-5.2 [facility] Comment on above: Performed By: #### B MP, LIP, LIVP, CDP, HCG #### [facility] [address] [place], [place] [phone] Biological Engineer: Jennifer Freire MD Alkaline Phos 86 U/L Normal 35-104 [facility] Comment on above: Performed By: #### B MP, LIP, LIVP, CDP, HCG #### [facility] [address] [place], [place] [phone] Biological Engineer: Jennifer Freire MD ALT [Catalytic activity/Vol] 14 U/L Normal 5-33 [facility] Comment on above: Performed By: #### B MP, LIP, LIVP, CDP, HCG #### [facility] [address] [place], [place] [phone] Biological Engineer: Jennifer Freire MD AST [Catalytic activity/Vol] 18 U/L Normal <32 [facility] Comment on above: Performed By: #### B MP, LIP, LIVP, CDP, HCG #### [facility] [address] [place], [place] [phone] Biological Engineer: Jennifer Freire MD Bilirubin [Mass/Vol] 0.5 mg/dL Normal 0.3-1.2 [facility] Comment on above: Performed By: #### B MP, LIP, LIVP, CDP, HCG #### [facility] [address] [place], [place] [id number] Biological Engineer: Jennifer Freire MD Bilirubin, Indirect Can not be calculated Normal 0.0-1.0 [facility] Comment on above: Performed By: #### B MP, LIP, LIVP, CDP, HCG #### [facility] [address] [facility] [address] Biological Engineer: Jennifer Freire MD Bilirubin.indirect [Mass/Vol] mg/dL Normal <0.3 [facility] Comment on above: Performed By: #### B MP, LIP, LIVP, CDP, HCG #### [facility] [address] [place], [place] [id number] Biological Engineer: Jennifer Freire MD Protein [Mass/Vol] 7.9 g/dL Normal 6.4-8.3 [facility] Comment on above: Performed By: #### B MP, LIP, LIVP, CDP, HCG #### [facility] [address] [place] [address] Biological Engineer: Jennifer Freire MD Urinalysis, Routineon 2022 Bilirubin, SemiQt,Ur Negative Normal NEG [facility] Comment on above: Performed By: #### U A #### [facility] [address] [place], [place] [id number] Biological Engineer: Jennifer Freire MD Blood, Urine Negative Normal NEG [facility] Comment on above: Performed By: #### U A #### [facility] [address] [place], [place] [phone] Biological Engineer: Jennifer Freire MD Clarity (U) Clear Normal CLEAR [facility] Comment on above: Performed By: #### U A #### [facility] [address] [facility] [place] [phone] Biological Engineer: Jennifer Freire MD Color (U) Yellow Normal YEL [facility] Comment on above: Performed By: #### U A #### [facility] [address] [place], [place] [id number] Biological Engineer: Jennifer Freire MD Comment Normal [facility] Comment on above: Performed By: #### U A #### [facility] [address] [place] [address] Biological Engineer: Jennifer Freire MD Glucose Ql (U) Negative Normal NEG [facility] Comment on above: Performed By: #### U A #### [facility] [address] [place] [address] Biological Engineer: Jennifer Freire MD Ketones Ql (U) Negative Normal NEG [facility] Comment on above: Performed By: #### U A #### [facility] [address] [place] [address] Biological Engineer: Jennifer Freire MD Leukocyte esterase Test strip Ql (U) Negative Normal NEG [facility] Comment on above: Performed By: #### U A #### [facility] [address] [place], [place] [id number] Biological Engineer: Jennifer Freire MD Nitrite,Ur Negative Normal NEG [facility] Comment on above: Performed By: #### U A #### [facility] [address] [place], [place] [id number] Biological Engineer: Jennifer Freire MD PH,Ur 8.0 Normal 5.0-8.0 [facility] Comment on above: Performed By: #### U A #### [facility] [address] [place] [address] Biological Engineer: Jennifer Freire MD Protein Ql (U) Negative Normal NEG [facility] Comment on above: Performed By: #### U A #### [facility] [address] [place] [address] Biological Engineer: Jennifer Freire MD Spec. [place],Ur 1.010 Normal 1.005-1.030 [facility] Comment on above: Performed By: #### U A #### [facility] [address] [place], [place] [id number] Biological Engineer: Jennifer Freire MD Urobilinogen,Ur Normal Normal 0.0-1.0 [facility] Comment on above: Performed By: #### U A #### [facility] [address] [place] [address] Biological Engineer: Jennifer Freire MD Discharge Instructionson Discharge Instructions [id number] 120 [id number] #[id number] Normal [facility] ED Clinical Summaryon 2022 ED Clinical Summary [address] [address] ED Clinical Summary Person Information [facility]: [facility] Age[facility] 38 Years : 1985 Sex: Female Language: Dominican PCP: BETTIE MIRELES Marital Status: Visit Id: Visit Reason: Back pain; Abdominal pain; ABD PAIN Speciality: Acuity: 2 Enc Type: Emergency Med Service: Emergency Arrival: 05/17/2023 20:20:39 Discharge: 05/18/2023 00:30:00 LOS: 000 04:10 Checkin: 05/17/2023 20:20:39 Checkout: 05/18/2023 00:30:00 Dispo Type: Home (Routine DC) EVENTS: Event Name Event Status Request Date/Time Start Date/Time Complete Date/Time Arrive Complete 05/17/2023 20:20:39 05/17/2023 20:20:39 05/17/2023 20:20:39 Document Home Meds Request 05/17/2023 20:20:39 Triage Complete 05/17/2023 20:20:39 05/17/2023 20:31:16 05/17/2023 20:31:16 Bed Assign Complete 05/17/2023 20:31:50 05/17/2023 20:31:50 05/17/2023 20:31:50 Dr Exam Complete 05/17/2023 20:31:51 05/17/2023 20:32:53 05/17/2023 20:32:53 RN Exam Complete 05/17/2023 20:31:51 05/17/2023 21:32:55 05/17/2023 21:32:55 Registration Complete 05/17/2023 20:32:53 05/17/2023 20:43:26 05/17/2023 20:43:26 Reg Complete Request 05/17/2023 20:43:26 Reg Bed Request Complete 05/17/2023 20:43:26 05/17/2023 20:43:26 05/17/2023 20:43:26 Meds Admin Complete 05/17/2023 20:46:11 05/17/2023 21:23:34 Pending Labs Complete 05/17/2023 20:46:11 05/17/2023 22:12:23 Lab Complete 05/17/2023 20:46:11 05/17/2023 22:12:23 Urine Collect Complete 05/17/2023 20:46:11 05/17/2023 22:12:23 Patient Care Request 05/17/2023 20:46:11 Pending Labs Complete 05/17/2023 21:12:27 05/17/2023 21:12:27 05/17/2023 21:36:16 Lab Complete 05/17/2023 21:12:27 05/17/2023 21:12:27 05/17/2023 21:36:16 Meds Admin Complete 05/17/2023 21:19:11 05/17/2023 21:23:35 Pending Labs Complete 05/17/2023 21:32:40 05/17/2023 21:32:40 05/17/2023 21:33:32 Pending Labs Complete 05/17/2023 21:32:41 05/17/2023 21:32:41 05/17/2023 21:33:40 Lab Complete 05/17/2023 21:32:41 05/17/2023 21:32:41 05/17/2023 21:33:40 Pending Labs Complete 05/17/2023 21:38:04 05/17/2023 21:38:04 05/17/2023 21:38:05 Pending Labs Complete 05/17/2023 21:38:13 05/17/2023 21:38:13 05/17/2023 21:38:13 Pending Labs Complete 05/17/2023 21:48:58 05/17/2023 21:48:58 05/17/2023 21:51:07 Meds Admin Complete 05/17/2023 21:49:28 05/17/2023 21:59:14 Pending Labs Cancel 05/17/2023 21:51:58 05/17/2023 21:51:58 05/17/2023 21:57:35 US Complete 05/17/2023 22:01:15 05/17/2023 22:47:18 05/18/2023 00:13:12 Meds Admin Complete 05/18/2023 00:19:12 05/18/2023 00:28:44 Discharge Complete 05/18/2023 00:19:56 05/18/2023 00:57:00 05/18/2023 00:57:00 Transfer Complete 05/18/2023 00:57:00 05/18/2023 00:57:00 05/18/2023 00:57:00 ADDRESS: [address] [place] [id number] PHYS DOC NOTES: MEDICAL INFORMATION: Prescriptions Given: Medications to Continue with No Changes Other Medications alprazolam (alprazolam 0.25 mg Tab) budesonide-formotero l (Symbicort 80/4.5 inhalation aerosol with adapter) citalopram (citalopram 20 mg Tab) By Mouth every day. PATIENT EDUCATION INFORMATION: Instructions: Ovarian Cyst Follow up: With: Address: When: Ino ENCISO, [address] [address] Business (4) In 3 days 05/21/2023 DIAGNOSIS: Bilateral ovarian cysts; Unspecified ovarian cyst, left side [facility] ED Note-Nursingon 05-18-2023 ED Note-Nursing Pt being transported to [facility] at this time [facility] ED Note-Physicianon 05-18-20 ED Note-Physician Basic Information Time Seen: Ritesh Heath DO 05/17/2023 20:32 Chief Complaint pt reports LLQ pain that radiates into lower back. hx of ovarian cysts.denies urinary s/s. denies n/v/d. no hx of kidney stones or diverticulitis. denies fevers. History of Present Illness HPI: Patient is a 38-year-old female who presents the ED for left lower abdominal pain. Patient states this for started when she woke up this morning and has been constant since that time although sometimes it has some increased sharp pain. This pain radiates to her left lower back. She denies any nausea vomiting or change in bowel movements. She denies any urinary symptoms. She does state that she has a history of ovarian cyst that it felt somewhat similar. She has tried ibuprofen and Tylenol at home with minimal improvement. ROS: Pertinent review of systems conducted and is negative except as noted above. Physical exam: General: Uncomfortable appearing but nontoxic HEENT: Mucous membranes moist Neuro: awake and alert Neck: supple, trachea midline Card: Heart regular rate and rhythm no murmur Resp: Lungs clear to auscultation no wheeze or rhonchi Abd: Soft and nondistended. Left lower quadrant tenderness without rebound or guarding. Ext: No gross deformity or edema Physical Exam Vitals & Measurements T: 36.7 ?C(Oral) HR: 134(Peripheral) RR: 18 BP: 139/85 SpO2: 100% HT: 165.1 cm WT: 80.4 kg BMI: 29.5 Medical Decision Making MEDICAL DECISION MAKING Number and Complexity of Problems Differential Diagnosis: [] [facility] Data External documents reviewed: N/A My EKG interpretation: Noted in chart if applicable My CT interpretation: N/A My X-ray interpretation: Noted in chart if applicable My Ultrasound interpretation: N/A Decision rules/scores evaluated: N/A Discussed with: N/A Treatment and Disposition ED Course: Patient is uncomfortable appearing but nontoxic. She has pain localized to her left pelvis and a history of ovarian cysts. I am concerned for possible torsion so we will obtain blood work and urinalysis as well as ultrasound. Lab Work is overall reassuring. Ultrasound shows bilateral ovarian cyst between 2 and half to 3 and half centimeters. Good blood flow to bilateral ovaries. I discussed with her the results of her workup. We discussed the plan of discharge with close follow-up with her PRODUCTION INSPECTOR at the 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 We discussed return precautions. Patient was discharged stable condition. Shared decision making: As above Code status: N/A Assessment/Plan Bilateral ovarian cysts (N83.201: Unspecified ovarian cyst, right side) Unspecified ovarian cyst, left side (N83.202: Unspecified ovarian cyst, left side) Orders: acetaminophen-oxycod one, 1 EA, Tab, Oral, Once, Stop date 05/18/23 0:18:00 EST, STAT, Start date 05/18/23 0:18:00 EST HYDROmorphone, 0.5 mg = 0.5 mL, Injection, IV Push, Once, Stop date 05/17/23 21:49:00 EST, STAT, Start date 05/17/23 21:49:00 EST, 05/17/23 21:49:00 EST ketorolac, 15 mg = 1 mL, Injection, IV Push, Once, Stop date 05/17/23 21:18:00 EST, STAT, Start date 05/17/23 21:18:00 EST, 05/17/23 21:18:00 EST Sodium Chloride 0.9% intravenous solution, 1,000 mL, Soln-IV, IV, Once, Stop date 05/17/23 20:45:00 EST, STAT, Start date 05/17/23 20:45:00 EST, Infuse over 61, minute(s) Add on Test Automated Diff Basic Metabolic Panel CBC w/ Auto Diff eGFR Extra Blue Tube Extra SST Tube Hepatic Function Panel Lipase Level Morphology Saline Lock Insert U Beta Hcg Qual UA With Cult Reflex US Pelvis Non-OB Complete Medications Administered Given HYDROmorphone 1 mg/mL injectable solution, 0.5 mg, IV Push ketorolac 15 mg/mL Inj, 15 mg, IV Push NS 1000 ml Bolus, 1000 mL, IV Disposition Plan Discharge Prescription List Prescriptions No active prescription medications Follow-up With When Contact Information Ino Lele In 3 days 05/21/2023 EST [address] [place] [address]- Business (1) Additional Instructions: Patient Education Ovarian Cyst Problem List/Past Medical History Ongoing No chronic problems Historical No qualifying data Medications Inpatient NS 1000 ml Bolus, 1000 mL, IV, Once Home alprazolam 0.25 mg Tab citalopram 20 mg Tab, Oral, Daily Symbicort 80/4.5 inhalation aerosol with adapter Allergies Compazine (Jittery) morphine (Itch) Social History Alcohol - Low Risk, 04/24/2023 Current, Beer, Wine, 1-2 times per month, 04/24/2023 Substance Abuse - Denies Substance Abuse, 04/24/2023 Tobacco Never (less than 100 in lifetime) Tobacco Use:. Never Smokeless Tobacco Use:., 12/04/2021 Lab Results WBC: 8.5 E9/L (05/17/23 21:12:00) RBC: 4.8 E12/L (05/17/23 21:12:00) HGB: 11.7 gm/dL Low (05/17/23 21:12:00) Hct: 37.4 % (05/17/23 21:12:00) MCV: 78.2 fL Low (05/17/23 21:12:00) MCH: 24.4 pg Low (05/17/23 21:12:00) MCHC: 31.2 gm/dL Low (05/17/23 21:12:00) RDW: 18.7 % High (05/17/23 21:12 (more content not included)... [facility] Comment on above: Result Comment: Elec tronically Signed By: Ritesh Heath DO\.br\Date and Time Signed: 05/18/23 00:21 EST ED Patient Education Noteon 05-18-2023 ED Patient Education Note Obstetrics and Gynecology Ovarian Cyst An ovarian cyst is a fluid-filled sac that forms on an ovary. The ovaries are small organs that produce eggs in women. Various types of cysts can form on the ovaries. Some may cause symptoms and require treatment. Most ovarian cysts go away on their own, are not cancerous (are benign), and do not cause problems. What are the causes? Ovarian cysts may be caused by: ? Ovarian hyperstimulation syndrome. This is a condition that can develop from taking fertility medicines. It causes multiple large ovarian cysts to form. ? Polycystic ovarian syndrome (PCOS). This is a common hormonal disorder that can cause ovarian cysts to form, and can cause problems with your period or fertility. ? The normal menstrual cycle. What increases the risk? The following factors may make you more likely to develop this condition: ? Being overweight or obese. ? Taking fertility medicines. ? Taking certain forms of hormonal control. ? Smoking. What are the signs or symptoms? Many ovarian cysts do not cause symptoms. If symptoms are present, they may include: ? Pelvic pain or pressure. ? Pain in the lower abdomen. ? Pain during sex. ? Abdominal swelling. ? Abnormal menstrual periods. ? Increasing pain with menstrual periods. How is this diagnosed? These cysts are commonly found during a routine pelvic exam. You may have tests to find out more about the cyst, such as: ? Ultrasound. ? CT scan. ? MRI. ? Blood tests. How is this treated? Many ovarian cysts go away on their own without treatment. Your health care provider may want to check your cyst regularly for 2?3 months to see if it changes. If you are in menopause, it is especially important to have your cyst monitored closely because menopausal women have a higher rate of ovarian cancer. When treatment is needed, it may include: ? Medicines to help relieve pain. ? A procedure to drain the cyst (aspiration). ? Surgery to remove the whole cyst (cystectomy). ? Hormone treatment or control pills. These methods are sometimes used to help keep cysts from coming back. ? Surgery to remove the ovary (oophorectomy). Follow these instructions at home: ? Take iiro-onw-xjtiaev and prescription medicines only as told by your health care provider. ? Ask your health care provider if any medicine prescribed to you requires you to avoid driving or using machinery. ? Get regular pelvic exams and Pap tests as often as told by your health care provider. ? Return to your normal activities as told by your health care provider. Ask your health care provider what activities are safe for you. ? Do not use any products that contain nicotine or tobacco, such as cigarettes, e-cigarettes, and chewing tobacco. If you need help quitting, ask your health care provider. ? Keep all follow-up visits. This is important. Contact a health care provider if: ? Your periods are late, irregular, painful, or they stop. ? You have pelvic pain that does not go away. ? You have pressure on your bladder or trouble emptying your bladder completely. ? You have any of the following: ? A feeling of fullness. ? You are gaining weight or losing weight without changing your exercise and eating habits. ? Pain, swelling, or bloating in the abdomen. ? Loss of appetite. ? Pain and pressure in your back and pelvis. ? You think you may be . Get help right away if: ? You have abdominal or pelvic pain that is severe or gets worse. ? You cannot eat or drink without vomiting. ? You suddenly develop a fever or chills. ? Your menstrual period is much heavier than usual. Summary ? An ovarian cyst is a fluid-filled sac that forms on an ovary. ? Some ovarian cysts may cause symptoms and require treatment. ? These cysts are commonly found during a routine pelvic exam. ? Many ovarian cysts go away on their own without treatment. This information is not intended to replace advice given to you by your health care provider. Make sure you discuss any questions you have with your health care provider. Document Revised: 11/06/2020 Document Reviewed: 11/06/2020 Elsevier Patient Education ? 2022 [employer]. [facility] ED Patient Summaryon 023 ED Patient Summary [address] [address] Patient Discharge Instructions Person Information Name: LIVIA NOYOLA Age: 38 Years Arrival Date: 05/17/2023 20:20:39 Discharge Diagnosis: Bilateral ovarian cysts; Unspecified ovarian cyst, left side Primary Care Physician: BETTIE MIRELES Provider Information Primary Provider: Ritesh Heath DO Advanced Business Office Representative:Shazia The exam and treatment you received in the Emergency Department were for an urgent problem and are not intended as complete care. It is important that you follow up with a doctor, nurse practitioner, or physician?s speech assistant for ongoing care. If your symptoms become worse or you do not improve as expected and you are unable to reach your usual health care provider, you should return to the Emergency Department. We are available 24 hours a day. LIVIA NOYOLA has been given the following list of patient education materials, prescriptions and follow-up instructions: Follow-up Instructions: With: Address: When: Ino Royal [address] [place] [address] [address] Business (1) In 3 days 05/21/2023 In the event that this physician does not participate in your insurance network, please consult with your insurance company to find a nearby participating provider. Patient Education Materials: Ovarian Cyst A MESSAGE TO ALL PATIENTS REGARDING OPIOIDS PRESCRIPTION OPIOIDS: WHAT YOU NEED TO KNOW Prescription opioids can be used to help relieve zakauhrx-zx-rucxip pain and are often prescribed following a surgery or injury, or for certain health conditions. These medications can be an important part of the treatment but also come with serious risks. It is important to work with your healthcare provider to make sure you are getting the safest, most effective care. WHAT ARE THE RISKS AND SIDE EFFECTS OF OPIOID USE? Prescription opioids carry serious risks of addiction and overdose, especially with prolonged use. An opioid overdose, often marked by slowed breathing, can cause sudden . The use of prescription opioids can have a number of side effects as well, even when taken as directed: ? Tolerance?meaning you might need to take more of the medication for the same pain relief ? Physical dependence?meaning you have symptoms of withdrawal when a medication is stopped ? Increased sensitivity to pain ? Constipation ? Nausea, vomiting, and dry mouth ? Sleepiness and dizziness ? Confusion ? Depression ? Low levels of testosterone that can result in lower sex drive, energy, and strength ? Itching and sweating RISKS ARE GREATER WITH: ? History of drug misuse, substance use disorder, or overdose ? Mental health conditions (such as depression or anxiety) ? Sleep apnea ? Older age (65 years and older) ? Avoid alcohol while taking prescription opioids. Also, unless specifically advised by your health care provider, medications to avoid include: ? Benzodiazepines (such as Xanax or Valium) ? Muscle relaxants (such as Soma or Flexeril) ? Hypnotics (such as Ambien or Lunesta) ? Other prescription opioids KNOW YOUR OPTIONS Talk to your health care provider about ways to manage your pain that don?t involve prescription opioids. Some of these options may actually work better and have fewer risks and side effects. Options may include: ? Pain relievers such as acetaminophen, ibuprofen, and naproxen ? Some medication that are also used for depression or seizures ? Physical therapy and exercise ? Cognitive behavioral therapy, a psychological, goal-directed approach, in which patients learn how to modify physical, behavioral, and emotional triggers of pain and stress. IF YOU ARE PRESCRIBED OPIOIDS FOR PAIN: ? Never take opioids in greater amounts or more often than prescribed. ? Follow up with your primary health care provider. o Work together to create a plan on how to manage your pain. o Talk about ways to help manage your pain that don?t involve prescription opioids. o Talk about any and all concerns and side effects. ? Help prevent misuse and abuse o Never sell or share prescription opioids. o Never use another person?s prescription opioids. ? Store prescription opioids in a secure place and out of reach of others (this may include visitors, children, friends, and family). ? Safely dispose of unused prescription opioids: Find your community drug take-back program or your pharmacy mail-back program, or flush them down the toilet, following guidance from the Food and Drug Administration (www.fda.gov/Drugs/R esourcesForYou). ? Visit www.cdc.gov/drugover dose to learn about the risks of opioids abuse and overdose. ? If you believe you may be struggling with addiction, tell your health career development engineer and ask for guidance or call [facility]S National Helpline at 1-465-086-QVMV. (more content not included)... [facility] UA With Cult Reflexon 2022 Bacteria LM Ql (Urine sed) TRACE Normal Trace [facility] Comment on above: Performed By: #### 2 [id number], [id number] ####[facility] [address] [place] [address] Bilirubin Ql (U) Negative Normal Negative [facility] Comment on above: Performed By: #### 2 7087395, [id number] ####[facility] [address] [place] [address] Clarity (U) CLEAR Normal Clear [facility] Comment on above: Performed By: #### 2 2957361, 36024736 ####[facility] [address] [place] [address] Color (U) YELLOW Normal Yellow [facility] Comment on above: Performed By: #### 2 3278556, 37379330 ####[facility] [address] [place] [address] Epithelial cells.squamous LM.HPF (Urine sed) [#/Area] 3-4 Normal 0-2 [facility] Comment on above: Performed By: #### 2 7782417, 84227834 ####[facility] [address] [place] [address] Glucose Test strip (U) [Mass/Vol] Negative Normal Negative [facility] Comment on above: Performed By: #### 2 6784993, 49617429 ####[facility] [address] [place] [address] Hemoglobin Ql (U) Negative Normal Negative [facility] Comment on above: Performed By: #### 2 7745501, 01583733 ####[facility] [address] [place] [address] Ketones (U) [Mass/Vol] TRACE Invalid Interpretation Code Negative [facility] Comment on above: Performed By: #### 2 0727481, [id number] ####[address] [address] [place].plasma/[place]. RBC (Bld) [Mass ratio] 0-3 Normal 0-3 [facility] Comment on above: Performed By: #### 2 2298533, [id number] ####[facility] [address] [place] [address] Mucus Ql (Urine sed) 2+ Normal [facility] Comment on above: Performed By: #### 2 0217631, 37085992 ####[facility] [address] [place] [address] Nitrite Ql (U) Negative Normal Negative [facility] Comment on above: Performed By: #### 2 9654673, 46013857 ####[facility] [address] [place] [address] pH (U) 6.0 [pH] Invalid Interpretation Code 5.0-9.0 [facility] Comment on above: Performed By: #### 2 6323873, 89785201 ####[facility] [address] [place] [address] Protein (U) [Mass/Vol] Negative Normal Negative [facility] Comment on above: Performed By: #### 2 5384750, 21591127 ####[facility] [address] [place] [address] Specific gravity (U) [Rel density] >=1.030 Invalid Interpretation Code 1.005-1.030 [facility] Comment on above: Performed By: #### 2 2170499, 77460417 ####[facility] [address] [place] [address] Type of Urine collection method Clean Catch Normal [facility] Comment on above: Performed By: #### 2 7144695, 22427030 ####[address] [address] Urobilinogen Qn (U) 2.0 {Ivone'U}/dL Abnormal 0.0-1.0 [facility] Comment on above: Performed By: #### 2 4672820, 27727721 ####[place] [address] WBC Auto Ql (U) Negative Normal Negative [facility] Comment on above: Performed By: #### 2 0234538, 71964624 ####[facility] [address] [place] [address] WBC LM.HPF (Urine sed) [#/Area] 0-5 Normal 0-5 [facility] Comment on above: Performed By: #### 2 4585223, [id number] ####[address] [address] US Pelvis Non-OB Completeon 05-18-2023 US Pelvis Non-OB Complete Exam Date/Time: 05/18/2023 00:13 EST Reason for Exam: Concern for torsion;Pelvic pain Report IMPRESSION: BILATERAL SIMPLE OVARIAN CYSTS. TRANSABDOMINAL AND TRANSVAGINAL PELVIC SONOGRAPHY WITH COLOR FLOW AND DOPPLER. CLINICAL HISTORY: Pelvic pain, Concern for torsion COMPARISONS: None available. TECHNICAL FACTORS: Transabdominal and transvaginal sonography with transvaginal imaging was obtained to better assess pelvic anatomy. FINDINGS: Uterus: Normal in size, shape, and echogenicity. Endometrium: Normal in appearance. Right ovary: Normal in size and shape. Simple cyst right ovary measuring 2.6 x 2.7 x 3.4 cm. Color flow and Doppler without anomaly. Left ovary: Normal in size and shape. Simple cyst left ovary measuring 3.0 x 1.7 x 1.8 cm. Color flow and Doppler without anomaly. Free fluid: None Adnexal masses: None The uterus measurements and an estimated volume are: Uterus Length: 8.5 cm Uterus Width: 5.0 cm Uterus Height: 3.0 cm Uterus Volume: 66.3 cm3 Endometrium Thickness: 1.2 cm The right ovary measurements and an estimated volume are: Right Ovary Length: 3.8 cm Right Ovary Width: 2.8 cm Right Ovary Height: 2.1 cm Right Ovary Volume: 11.8 cm3 The left ovary measurements and an estimated volume are: Left Ovary Length: 3.7 cm Report Left Ovary Width: 3.1 cm Left Ovary Height: 2.8 cm Left Ovary Volume: 16.6 cm3 Ordering Provider: Ritesh Heath FINAL REPORT Dictated: 05/18/2023 9:29 am Jason Zurita MD Signed (Electronic Signature): 05/18/2023 9:29 am Signed by: Jason Zurita MD Transcribed by: MILLIE Technologist: CARMELINA Technical Comments Transabdominal Ultrasound Performed Normal [facility] Auto Diffon 05-17-2023 Basophils/100 WBC (Bld) 0.4 % Normal 0.0-2.0 [facility] Comment on above: Order Comment: Order Added by Lis Expert. Performed By: #### 2 198185, 40586409, 2987679, 1626301, 3708613, 93473213, 5608602 ####[facility] [address] [place] [address] Basophils/Leukocytes Auto (Bld) [Pure # fraction] 0.0 E9/L Normal 0.0-0.2 [facility] Comment on above: Order Comment: Order Added by Discern Expert. Performed By: #### 2 889369, 90885040, 4653883, 0152863, 8052445, 34242295, 0233794 ####[facility] [address] [place] [address] Eosinophils/100 WBC (Bld) 0.2 % Normal 0.0-8.0 [facility] Comment on above: Order Comment: Order Added by Discern Expert. Performed By: #### 2 143377, 11985269, 9640072, 7384900, 3241263, 55867674, 4810195 ####[facility] [address] [place] [address] Eosinophils/Leukocytes Auto (Bld) [Pure # fraction] 0.0 E9/L Normal 0.0-0.5 [facility] Comment on above: Order Comment: Order Added by Discern Expert. Performed By: #### 2 660271, 98992235, 3667508, 3762933, 2484433, 04189521, 4323465 ####[address] [address] Lymphocytes/100 WBC (Bld) 33.4 % Normal 14.0-50.0 [facility] Comment on above: Order Comment: Order Added by Lis Expert. Performed By: #### 2 952629, 70490717, 9758540, 7383845, 2592421, 53173377, 2351284 ####[facility] [address] [place] [address] Lymphocytes/Leukocytes Auto (Bld) [Pure # fraction] 2.8 E9/L Normal 1.0-4.0 [facility] Comment on above: Order Comment: Order Added by Lis Expert. Performed By: #### 2 227609, 49476154, 1387186, 5962547, 7121396, 29453922, 1829030 ####[place] [address] [place] [address] Monocytes/100 WBC (Bld) 9.1 % Normal 4.0-14.0 [facility] Comment on above: Order Comment: Order Added by Lis Expert. Performed By: #### 2 374802, 97333665, 0529528, 3648356, 3452602, 19328105, 0889672 ####[place] [address] [place] [address] Monocytes/Leukocytes Auto (Bld) [Pure # fraction] 0.8 E9/L Normal 0.2-1.0 [facility] Comment on above: Order Comment: Order Added by Discern Expert. Performed By: #### 2 759646, 67296115, 1922820, 3492101, 3715418, 87207633, 8140031 ####[facility] [address] [place] [address] Neutrophils/100 WBC (Bld) 56.9 % Normal 36.0-75.0 [facility] Comment on above: Order Comment: Order Added by Discern Expert. Performed By: #### 2 640524, 15367183, 7748965, 7277632, 4533806, 30855046, 6564280 ####[facility] [address] [place] [address] Neutrophils/Leukocytes Auto (Bld) [Pure # fraction] 4.8 E9/L Normal 2.0-7.5 [facility] Comment on above: Order Comment: Order Added by Discern Expert. Performed By: #### 2 902933, 71962832, 2958462, 0956624, 8956725, 01444302, 0654183 ####[facility] [address] [place] [address] BMP 05-17-2023 Creatinine [Mass/Vol] 0.8 mg/dL Normal 0.5-1.[address] [facility] Comment on above: Performed By: #### 2 876146, 06564228, 4945851, 6624834, 2582922, 46850246, 4571338 ####[facility] [address] [place] [address] Urea nitrogen [Mass/Vol] 5 mg/dL Normal 5-21 [facility] Comment on above: Performed By: #### 2 029401, 32156932, 9287986, 7597665, 9886443, 27010582, 8164746 ####[facility] [address] [place] [address] Urea nitrogen/Creatinine [Mass ratio] 6 No Units Low 10-20 [facility] Comment on above: Performed By: #### 2 653011, 54932493, 8483682, 0864768, 6465687, 97116820, 6856389 ####[facility] [address] [place] [address] Anion gap [Moles/Vol] 11 mmol/L Normal 6-[address] [facility] Comment on above: Performed By: #### 2 395452, 74943660, 9144698, 7568576, 9902240, 18552495, 8311941 ####[facility] [address] [place] [address] Calcium [Mass/Vol] 9.3 mg/dL Normal 8.9-11.1 [facility] Comment on above: Performed By: #### 2 402183, 02292544, 3651822, 4776441, 3928246, 69633392, 2445268 ####[facility] [address] [place] [address] Chloride [Moles/Vol] 109 mmol/L Normal 101-111 [facility] Comment on above: Performed By: #### 2 670356, 13547253, 8697314, 8603527, 5388520, 27623961, 2848115 ####[facility] [address] [place] [address] CO2 [Moles/Vol] 23 mmol/L Normal 21-31 [facility] Comment on above: Performed By: #### 2 662352, 93259058, 0168495, 5887328, 0377845, 45091774, 1447383 ####[facility] [address] [place] [address] Glucose [Mass/Vol] 104 mg/dL Normal 55-199 [facility] Comment on above: Result Comment: If t his glucose result represents a fasting glucose, interpretation should refer to the following reference range: 55-99 mg/dL Performed By: #### 2 794983, 51334451, 5453956, 0850006, 6445435, 47094603, 5530352 ####[facility] [address] [place] [address] Potassium [Moles/Vol] 4.1 mmol/L Normal 3.5-5.[address] [facility] Comment on above: Performed By: #### 2 341989, 04083606, 6855599, 2531590, 0095318, 20988724, 5229970 ####[facility] [address] [place] [address] Sodium [Moles/Vol] 139 mmol/L Normal 135-145 [facility] Comment on above: Performed By: #### 2 108478, 49147972, 3529684, 5842493, 4799704, 08753455, 1319147 ####[facility] [address] [place] [address] CBC w/ Auto Diffon 3 Erythrocyte distribution width (RBC) [Ratio] 18.7 % High 10.9-14.2 [facility] Comment on above: Performed By: #### 2 502278, 21069286, 4900864, 0991660, 9165907, 35509484, 4031441 ####[address] [address] Hematocrit (Bld) [Volume fraction] 37.4 % Normal 34.0-46.0 [facility] Comment on above: Performed By: #### 2 271914, 08880960, 4710975, 0569982, 2354725, 81399985, 3640138 ####[address] [address] Hemoglobin (Bld) [Mass/Vol] 11.7 g/dL Low 12.0-16.0 [facility] Comment on above: Performed By: #### 2 768019, 90068854, 8518753, 1104660, 1219825, 35375681, 9497800 ####[place] [address] [place] [address] MCH (RBC) [Entitic mass] 24.4 pg Low 27.0-34.0 [facility] Comment on above: Performed By: #### 2 261377, 07350800, 4861761, 0759474, 5586390, 73207403, 8695086 ####[facility] [address] [place] [address] MCHC (RBC) [Mass/Vol] 31.2 g/dL Low 31.4-36.0 [facility] Comment on above: Performed By: #### 2 685372, 95909326, 6783940, 2654798, 4911535, 48621202, 9207364 ####[place] [address] [place] [address] MCV (RBC) [Entitic vol] 78.2 fL Low 80.0-100.0 [facility] Comment on above: Performed By: #### 2 303270, 19428777, 5996848, 4522268, 2982560, 81405965, 2540385 ####[address] [address] Platelet mean volume (Bld) [Entitic vol] 7.8 fL Normal 6.4-10.8 [facility] Comment on above: Performed By: #### 2 638729, 17908779, 2976672, 6210707, 4085444, 43168630, 1940676 ####[address] [address] Platelets (Bld) [#/Vol] 469.0 E9/L Normal 150.0-500.0 [facility] Comment on above: Performed By: #### 2 991731, 90801979, 5158773, 4369697, 9509340, 09250880, 2428867 ####[place] [address] [place] [address] RBC (Bld) [#/Vol] 4.8 E12/L Normal 4.3-5.9 [facility] Comment on above: Performed By: #### 2 285372, 96355828, 7862530, 0853004, 9169010, 94925780, 5464139 ####[address] [address] WBC corrected for nucl RBC Auto (Bld) [#/Vol] 8.5 E9/L Normal 4.0-11.0 [facility] Comment on above: Performed By: #### 2 099922, 98652540, 0798469, 7416138, 6778193, 34182503, 0357431 ####[facility] [address] [place] [address] Consent for Treatmenton Consent for Treatment [id number] 31 [id number] #[id number] Normal [facility] Hep Func Panelon 05-17-2023 Albumin [Mass/Vol] 4.2 g/dL Normal 3.3-5.0 [facility] Comment on above: Performed By: #### 2 715662, 99238424, 2035170, 1796739, 8157040, 70869447, 7591616 ####[facility] [address] [place] [address] Albumin/Globulin (S) [Mass conc ratio] 1.2 Normal 1.1-2.2 [facility] Comment on above: Performed By: #### 2 212476, 88485575, 4131113, 5901284, 9419429, 19951859, 3324560 ####[facility] [address] [place] [address] ALP [Catalytic activity/Vol] 58 Int._Unit/L Normal 21-98 [facility] Comment on above: Performed By: #### 2 062031, 99943483, 3987885, 1864628, 4418896, 03550977, 2116987 ####[facility] [address] [place] [address] ALT No additional P-5'-P [Catalytic activity/Vol] 14 Int._Unit/L Normal 6-46 [facility] Comment on above: Performed By: #### 2 653268, 90516097, 1576947, 6006633, 1020701, 67189622, 0251543 ####[facility] [address] [place] 6779857 AST [Catalytic activity/Vol] 21 Int._Unit/L Normal 5-43 [facility] Comment on above: Performed By: #### 2 926754, 16510420, 2565099, 0257297, 1020165, 23220702, 2024892 ####[facility] [address] [place] [address] Bilirubin [Mass/Vol] 0.6 mg/dL Normal 0.0-1.1 [facility] Comment on above: Performed By: #### 2 907838, 49049243, 6154430, 7909581, 5735841, 98055853, 9455539 ####[place] [address]757 Bilirubin.direct [Mass/Vol] 0.1 mg/dL Normal 0.1-0.4 [facility] Comment on above: Performed By: #### 2 997731, 62733601, 6074476, 1511606, 3648862, 45028485, 4971410 ####[facility] [address] [place] [address] Bilirubin.indirect [Mass or moles/Vol] 0.5 mg/dL Normal 0.1-0.9 [facility] Comment on above: Performed By: #### 2 493309, 19535823, 4327812, 0004967, 8620610, 10022867, 2790988 ####[facility] [address] [place] [address] Globulin (S) [Mass/Vol] 3.6 g/dL Normal 1.4-4.0 [facility] Comment on above: Performed By: #### 2 011213, 45181396, 1903562, 3091073, 8840709, 87884291, 4326364 ####[facility] [address] [place] [address] Protein [Mass/Vol] 7.8 g/dL Normal 6.0-7.8 [facility] Comment on above: Performed By: #### 2 505725, 06979779, 1871623, 9244861, 6266199, 10233736, 0656231 ####[facility] [address] [place] [address] Lipase Levelon 05-17-2023 Lipase [Catalytic activity/Vol] 57 U/L Normal 13-58 [facility] Comment on above: Performed By: #### 2 425347, 56578374, 9446118, 4369250, 3837195, 14803034, 9651854 ####[facility] [address] [place] [address] Morphon 05-17-2023 Anisocytosis Ql (Bld) Present Normal [facility] Comment on above: Order Comment: Order Added by Discern Expert. Performed By: #### 2 500408, 93183165, 9754636, 5725804, 8403128, 76699198, 9922209 ####[place] [address] [place] [address] Hypochromia Auto Ql (Bld) Present Normal [facility] Comment on above: Order Comment: Order Added by Discern Expert. Performed By: #### 2 534792, 40480186, 0275156, 4210703, 5687244, 02073045, 0029728 ####[facility] [address] [place] [address] Microcytes Ql (Bld) Present Normal [facility] Comment on above: Order Comment: Order Added by Discern Expert. Performed By: #### 2 934373, 54581702, 6901757, 1836284, 1625609, 05904795, 2702185 ####[facility] [address] [place] [address] Morphology Edson (Bld) [Interp] See Morphology Normal [facility] Comment on above: Order Comment: Order Added by Discern Expert. Performed By: #### 2 961324, 45179579, 7011226, 5390104, 0331883, 07557053, 5700152 ####[facility] [address] [place] [address] Ovalocytes LM Ql (Bld) Present Normal [facility] Comment on above: Order Comment: Order Added by Discern Expert. Performed By: #### 2 761208, 82027728, 2248150, 6554775, 4065154, 28775940, 0442807 ####[facility] [address] [place] [address] U BetaHcg Qualon 05-17-2023 HCG.beta subunit (U) [Moles/Vol] Negative Normal [facility] Comment on above: Performed By: #### 2 4086771, 45242725 ####[facility] [address] [place] [address] eGFRon 05-17-2023 GFR/1.73 sq M.predicted among non-blacks MDRD (S/P/Bld) [Vol rate/Area] 98 mL/min/1.73 m2 Normal >=59 [facility] Comment on above: Order Comment: Order added by Discern Expert. Result Comment: Certified Hand Therapist franklin kidney disease could be indicated at eGFR's of less than 60 mL/min/1.73m2. Kidney failure is indicated at less than 15 mL/min/1.73m2. Performed By: #### 2 273384, 80097907, 2456970, 9556925, 0384651, 51420361, 3634473 ####[facility] [address] [place] [address] Alanine aminotransferase [En zymatic activity/volume] in Serum or PlasmaOrdered By: Elier Jackson on 04-30-2023 ALT [Catalytic activity/Vol] 15 U/L 7-52 [facility] Albumin [Mass/volume] in Ser um or Plasma by Bromocresol green (BCG) dye binding methoOrdered By: Elier Jackson on 04-30-2023 Albumin BCG dye [Mass/Vol] 4.3 g/dL 3.5-5.7 [facility] Alkaline phosphatase [Enzyma tic activity/volume] in Serum or PlasmaOrdered By: Elier Jackson on 04-30-2023 ALP [Catalytic activity/Vol] 68 U/L 34-104 [facility] Aspartate aminotransferase [ Enzymatic activity/volume] in Serum or PlasmaOrdered By: Elier Velásquezjulian on 04-30-2023 AST [Catalytic activity/Vol] 17 U/L 13-39 [facility] Automated erythrocytes count in urine sediment (number/area)Ordered By: Elier Velásquezjulian on 04-30-2023 RBC Auto (Urine sed) [#/Area] 5-9 [HPF] 0-4 [facility] Automated leukocytes count i n urine sediment (number/area)Ordered By: Elier Manuel on 04-30-2023 WBC Auto (Urine sed) [#/Area] 0-1 [HPF] 0-4 [facility] Basic Metabolic Panelon 04-13 Anion gap [Moles/Vol] 14.7 mmol/L Normal 6.0-15.0 [facility] Comment on above: Performed By: #### C BC #### [facility] [address] [place] [address] [place] Calcium [Mass/Vol] 9.2 mg/dL Normal 8.6-10.3 [facility] Comment on above: Performed By: #### C BC #### [facility] [address] [place] [address] [place] Chloride [Moles/Vol] 109 mmol/L High 98-107 [facility] Comment on above: Performed By: #### C BC #### [facility] [address] [place] [address] [place] CO2 [Moles/Vol] 20.1 mmol/L Low 21.0-31.0 [facility] Comment on above: Performed By: #### C BC #### [facility] [address] [place] [address] [place] Creatinine [Mass/Vol] 0.65 mg/dL Normal 0.60-1.20 [facility] Comment on above: Performed By: #### C BC #### [facility] [address] [place] [id number] [place] Creatinine Clr Calc Pharmacy 107.67 Normal [facility] Comment on above: Performed By: #### C BC #### [facility] [address] GFR/1.73 sq M.predicted MDRD (S/P/Bld) [Vol rate/Area] mL/min/{1.73_m2} Normal [facility] Comment on above: Performed By: #### C BC #### [facility] [address] Glucose [Mass/Vol] 100 mg/dL Normal 70-100 [facility] Comment on above: Result Comment: [facility] Glucose Reference Range is dependent on time and content of last meal. Glucose of more than 200 mg/dL in a nonstressed, ambulatory subject supports the diagnosis of Diabetes Mellitus. ADA recommended reference range Performed By: #### C BC #### [facility] [address] [place] [address] Potassium [Moles/Vol] 3.8 mmol/L Normal 3.5-5.1 [facility] Comment on above: Performed By: #### C BC #### [facility] [address] [place] [address] Sodium [Moles/Vol] 140 mmol/L Normal 136-145 [facility] Comment on above: Performed By: #### C BC #### [facility] [address] [place] [address] Urea nitrogen [Mass/Vol] 6 mg/dL Low 7-25 [facility] Comment on above: Performed By: #### C BC #### [facility] [address] [place] [address] Basophils Auto (Bld) [#/Vol] Ordered By: Elier Jackson on 04-30-2023 Basophils (Bld) [#/Vol] 0.0 10*3/uL 0.0-0.2 [facility] Basophils/100 WBC Auto (Bld) Ordered By: Elier Jackson on 04-30-2023 Basophils/100 WBC (Bld) 1.3 % . [facility] Bilirubin Test strip Ql (U)O rdered By: Elier Jackson on 04-30-2023 Bilirubin Ql (U) Negative Negative [facility] Bilirubin.direct [Mass/volum e] in Serum or PlasmaOrdered By: Elier Jackson on 04-30-2023 Bilirubin.direct [Mass/Vol] 0.10 mg/dL 0.03-0.18 [facility] Bilirubin.total [Mass/volume ] in Serum or PlasmaOrdered By: Elier Jackson on 04-30-2023 Bilirubin [Mass/Vol] 0.4 mg/dL 0.3-1.0 [facility] Calcium [Mass/volume] in Ser um or PlasmaOrdered By: Elier Jackson on 04-30-2023 Calcium [Mass/Vol] 9.2 mg/dL 8.6-10.3 [facility] Carbon dioxide, total [Moles /volume] in Serum or PlasmaOrdered By: Elier Jackson on 04-30-2023 CO2 [Moles/Vol] 20.1 mmol/L 21.0-31.0 [facility] Chloride [Moles/volume] in S binu or PlasmaOrdered By: Elier Jackson on 04-30-2023 Chloride [Moles/Vol] 109 mmol/L 98-107 [facility] Color Auto (U)Ordered By: Julian Jackson on 04-30-2023 Color (U) Yellow Yellow [facility] Complete Blood Count Auto Di ffon 04-30-2023 Basophils (Bld) [#/Vol] 0.0 10*3/uL Normal 0.0-0.2 [facility] Comment on above: Result Comment: PERF ORMED BY: [facility] [address] [place] [address] PATHOLOGIST ED CASE MANAGER FARNAZ ZULETA M.D. Performed By: #### C BC #### [facility] [address] Basophils/100 WBC (Bld) 1.3 % Normal . [facility] Comment on above: Performed By: #### C BC #### [facility] [address] Eosinophils (Bld) [#/Vol] 0.0 10*3/uL Normal 0.0-0.45 [facility] Comment on above: Performed By: #### C BC #### [address] Eosinophils/100 WBC (Bld) 0.6 % Normal . [facility] Comment on above: Performed By: #### C BC #### [address] Erythrocyte distribution width (RBC) [Ratio] 16.8 % High 11.9-15.3 [facility] Comment on above: Performed By: #### C BC #### [address] Hematocrit (Bld) [Volume fraction] 32.3 % Low 34.0-46.4 [facility] Comment on above: Performed By: #### C BC #### [address] Hemoglobin (Bld) [Mass/Vol] 11.2 g/dL Low 11.8-15.4 [facility] Comment on above: Performed By: #### C BC #### [address] Lymphocytes (Bld) [#/Vol] 1.6 10*3/uL Normal 1.00-4.8 [facility] Comment on above: Performed By: #### C BC #### [address] Lymphocytes/100 WBC (Bld) 44.2 % Normal . [facility] Comment on above: Performed By: #### C BC #### [address] MCH (RBC) [Entitic mass] 30.4 pg Normal 24.7-34.3 [facility] Comment on above: Performed By: #### C BC #### [address] MCV (RBC) [Entitic vol] 87.6 fL Normal 80-100 [facility] Comment on above: Performed By: #### C BC #### [address] Mean Corpuscular HGB Conc 34.7 g/dL Normal 32.0-35.0 [facility] Comment on above: Performed By: #### C BC #### [facility] [address] [place] [address] [place] Monocytes (Bld) [#/Vol] 0.3 10*3/uL Normal 0.0-0.8 [facility] Comment on above: Performed By: #### C BC #### [facility] [address] [place] [address] [place] Monocytes/100 WBC (Bld) 16.58 % Normal 0.00-20.00 [facility] Comment on above: Performed By: #### C BC #### [facility] [address] [place] [address] [place] Monocytes/100 WBC (Bld) 7.0 % Normal . [facility] Comment on above: Performed By: #### C BC #### [facility] [address] Neutrophils (Bld) [#/Vol] 1.7 10*3/uL Low 1.8-7.7 [facility] Comment on above: Performed By: #### C BC #### [facility] [address] [place] [address] [place] Neutrophils/100 WBC (Bld) 46.9 % Normal . [facility] Comment on above: Performed By: #### C BC #### [place] [address] [place] NRBC% 0.1 /100{WBC} Normal 0-0.5 [facility] Comment on above: Performed By: #### C BC #### [facility] [address] [place] [address] [place] Platelet mean volume (Bld) [Entitic vol] 8.0 fL Normal 6.3-10.7 [facility] Comment on above: Performed By: #### C BC #### [place] [address] [place] Platelets (Bld) [#/Vol] 415 10*3/uL Normal 150-450 [facility] Comment on above: Performed By: #### C BC #### [facility] [address] [place] [address] [place] RBC (Bld) [#/Vol] 3.68 10*6/uL Normal 3.60-5.00 [facility] Comment on above: Performed By: #### C BC #### [facility] [address] [place] [address] WBC (Bld) [#/Vol] 3.6 10*3/uL Low 3.8-11.6 [facility] Comment on above: Performed By: #### C BC #### [address] Creatinine [Mass/volume] in Serum or PlasmaOrdered By: Elier Jackson on 04-30-2023 Creatinine [Mass/Vol] 0.65 mg/dL 0.60-1.20 [facility] Dipstick and Microscopicon 1 06-30-2022 Appearance (U) Clear Normal Clear [facility] Comment on above: Order Comment: Name Collection Type:: Voided Performed By: #### H CGQNT #### [facility] [address] [place] [address] [place] Bacteria,Urine None Seen Normal None Seen [facility] Comment on above: Order Comment: Name Collection Type:: Voided Performed By: #### H CGQNT #### [facility] [address] [place] [address] [place] Bilirubin,Urine Negative Normal Negative [facility] Comment on above: Order Comment: Name Collection Type:: Voided Performed By: #### H CGQNT #### [facility] [address] [place] [address] [place] Color (U) Yellow Normal Yellow [facility] Comment on above: Order Comment: Name Collection Type:: Voided Performed By: #### H CGQNT #### [facility] [address] [place] [address] [place] Glucose Ql (U) Normal Normal Normal [facility] Comment on above: Order Comment: Name Collection Type:: Voided Performed By: #### H CGQNT #### [address] [place] [address] [place] Hyaline Casts,Urine 0-8 Normal 0-8 [facility] Comment on above: Order Comment: Name Collection Type:: Voided Performed By: #### H CGQNT #### [place] [address] [place] Ketones Ql (U) Negative Normal Negative [facility] Comment on above: Order Comment: Name Collection Type:: Voided Performed By: #### H CGQNT #### [address] Leukocyte esterase Test strip Ql (U) Negative Normal Negative [facility] Comment on above: Order Comment: Name Collection Type:: Voided Performed By: #### H CGQNT #### [place] [address] [place] Nitrite,Urine Negative Normal Negative [facility] Comment on above: Order Comment: Name Collection Type:: Voided Performed By: #### H CGQNT #### [address] Occult Blood,Urine 2+ High Negative [facility] Comment on above: Order Comment: Name Collection Type:: Voided Performed By: #### H CGQNT #### [address] pH (U) 5.5 [pH] Normal 5.0-9.0 [facility] Comment on above: Order Comment: Name Collection Type:: Voided Performed By: #### H CGQNT #### [facility] [address] [place] [address] [place] Protein,Urine Negative Normal Negative [facility] Comment on above: Order Comment: Name Collection Type:: Voided Performed By: #### H CGQNT #### [place] [address] [place] RBC,Urine 5-9 High 0-4 [facility] Comment on above: Order Comment: Name Collection Type:: Voided Performed By: #### H CGQNT #### [facility] [address] [place] [address] [place] Specificy [place],Urine 1.018 Normal 1.001-1.030 [facility] Comment on above: Order Comment: Name Collection Type:: Voided Performed By: #### H CGQNT #### [facility] [address] [place] [address] Squamous Epithelial Cell,Urine 0-1 Normal 0-2 [facility] Comment on above: Order Comment: Name Collection Type:: Voided Performed By: #### H CGQNT #### [facility] [address] [place] [address] Urobilinogen,Urine Normal Normal Normal [facility] Comment on above: Order Comment: Name Collection Type:: Voided Performed By: #### H CGQNT #### [facility] [address] [place] [address] WBC LM.HPF (Urine sed) [#/Area] 0 /[HPF] Normal 0-4 [facility] Comment on above: Order Comment: Name Collection Type:: Voided Performed By: #### H CGQNT #### [facility] [address] [place] [address] Eosinophils Auto (Bld) [#/Vo l]Ordered By: Elier Jackson on 04-30-2023 Eosinophils (Bld) [#/Vol] 0.0 10*3/uL 0.0-0.45 [facility] Eosinophils/100 WBC Auto (Bl d)Ordered By: Elier Jackson on 04-30-2023 Eosinophils/100 WBC (Bld) 0.6 % . [facility] Erythrocyte distribution wid th Auto (RBC) [Ratio]Ordered By: Elier Jackson on 04-30-2023 Erythrocyte distribution width (RBC) [Ratio] 16.8 % 11.9-15.3 [facility] Globulin Calc (S) [Mass/Vol] Ordered By: Elier Jackson on 04-30-2023 Globulin (S) [Mass/Vol] 3.3 g/dL [facility] Glucose [Mass/volume] in Ser um or PlasmaOrdered By: Elier Jackson on 04-30-2023 Glucose [Mass/Vol] 100 mg/dL 70-100 [facility] Comment on above: ADA recommended refe rence rangeRandom Glucose Reference Range is dependent on time and content of last meal. Glucose of more than 200 mg/dL in a nonstressed, ambulatory subject supports the diagnosis of Diabetes Mellitus. HCG ( test) IA.rapi d Ql (U)Ordered By: Elier Jackson on 04-30-2023 HCG ( test) Ql (U) Negative [facility] HCG,Urineon 04-30-2023 Beta HCG ( test) Ql (U) Negative Normal [facility] Comment on above: Order Comment: Name Collection Type:: Voided Result Comment: PERF ORMED BY: [place] [address] PATHOLOGIST ED CASE MANAGER FARNAZ ZULETA M.D. Performed By: #### H CGQNT #### [address] Hematocrit Auto (Bld) [Volum e fraction]Ordered By: Elier Jackson on 04-30-2023 Hematocrit (Bld) [Volume fraction] 32.3 % 34.0-46.4 [facility] Hemoglobin [Mass/volume] in BloodOrdered By: Elier Jackson on 04-30-2023 Hemoglobin (Bld) [Mass/Vol] 11.2 g/dL 11.8-15.4 [facility] Hepatic Panelon 04-30-2023 Albumin [Mass/Vol] 4.3 g/dL Normal 3.5-5.7 [facility] Comment on above: Performed By: #### C BC #### [address] Albumin/Globulin [Mass ratio] 1.3 {ratio} Normal [facility] Comment on above: Performed By: #### C BC #### [address] ALP [Catalytic activity/Vol] 68 U/L Normal 34-104 [facility] Comment on above: Performed By: #### C BC #### [place] [address] [place] ALT [Catalytic activity/Vol] 15 U/L Normal 7-52 [facility] Comment on above: Performed By: #### C BC #### [facility] [address] AST [Catalytic activity/Vol] 17 U/L Normal 13-39 [facility] Comment on above: Performed By: #### C BC #### [facility] [address] Bilirubin [Mass/Vol] 0.4 mg/dL Normal 0.3-1.0 [facility] Comment on above: Performed By: #### C BC #### [facility] [address] Bilirubin,Indirect 0.3 mg/dL Normal [facility] Comment on above: Performed By: #### C BC #### [facility] [address] Bilirubin.indirect [Mass/Vol] 0.10 mg/dL Normal 0.03-0.18 [facility] Comment on above: Performed By: #### C BC #### [facility] [address] Globulin (S) [Mass/Vol] 3.3 g/dL Normal F [facility] Comment on above: Performed By: #### C BC #### [facility] [address] Protein [Mass/Vol] 7.6 g/dL Normal 6.4-8.9 [facility] Comment on above: Performed By: #### C BC #### [facility] [address] Ketones Auto test strip (U) [Mass/Vol]Ordered By: Elier Jackson on 04-30-2023 Ketones (U) [Mass/Vol] Negative Negative [facility] - UrinalysisOrder ed By: Elier Jackson on 04-30-2023 Hyaline casts LM Ql (Urine sed) 0-8 [LPF] 0-8 [facility] Leukocytes [#/volume] correc flo for nucleated erythrocytes in Blood by Automated counOrdered By: Elier Jackson on 04-30-2023 WBC corrected for nucl RBC Auto (Bld) [#/Vol] 3.6 10*3/uL 3.8-11.6 [facility] Lipaseon 04-30-2023 Lipase [Catalytic activity/Vol] 31.0 U/L Normal 11.0-82.0 [facility] Comment on above: Result Comment: PERF ORMED BY: [place] [address] PATHOLOGIST ED CASE MANAGER FARNAZ ZULETA M.D. Performed By: #### C BC #### [address] Lipase [Enzymatic activity/v olume] in Serum or PlasmaOrdered By: Elier Jackson on 04-30-2023 Lipase [Catalytic activity/Vol] 31.0 U/L 11.0-82.0 [facility] Lymphocytes Auto (Bld) [#/Vo l]Ordered By: Elier Jackson on 04-30-2023 Lymphocytes (Bld) [#/Vol] 1.6 10*3/uL 1.00-4.8 [facility] Lymphocytes/100 WBC Auto (Bl d)Ordered By: Elier Jackson on 04-30-2023 Lymphocytes/100 WBC (Bld) 44.2 % . [facility] MCH Auto (RBC) [Entitic mass ]Ordered By: Elier Jackson on 04-30-2023 MCH (RBC) [Entitic mass] 30.4 pg 24.7-34.3 [facility] MCHC Auto (RBC) [Mass/Vol]Or dered By: Elier Jackson on 04-30-2023 MCHC (RBC) [Mass/Vol] 34.7 g/dL 32.0-35.0 [facility] MCV Auto (RBC) [Entitic vol] Ordered By: Elier Jackson on 04-30-2023 MCV (RBC) [Entitic vol] 87.6 fL 80-100 [facility] Monocyte distribution width [Entitic volume] in Blood by AutomatedOrdered By: Elier Jackson on 04-30-2023 Monocyte distribution width Auto (Bld) [Entitic vol] 16.58 % 0.00-20.00 [facility] Monocytes Auto (Bld) [#/Vol] Ordered By: Elier Jackson on 04-30-2023 Monocytes (Bld) [#/Vol] 0.3 10*3/uL 0.0-0.8 [facility] Monocytes/100 WBC Auto (Bld) Ordered By: Elier Jackson on 04-30-2023 Monocytes/100 WBC (Bld) 7.0 % . [facility] Neutrophils Auto (Bld) [#/Vo l]Ordered By: Elier Jackson on 04-30-2023 Neutrophils (Bld) [#/Vol] 1.7 10*3/uL 1.8-7.7 [facility] Neutrophils/100 WBC Auto (Bl d)Ordered By: Elier Jackson on 04-30-2023 Neutrophils/100 WBC (Bld) 46.9 % . [facility] Nitrite Test strip Ql (U)Ord ered By: Elier Jackson on 04-30-2023 Nitrite Ql (U) Negative Negative [facility] No Panel InformationOrdered By: Elier Jackson on 04-30-2023 Estimated GFR (CKD-EPI) > 60.0 mL/Min [facility] Creatinine Clearance (Chem 107.67 [facility] Nucleated erythrocytes [Pres ence] in Blood by Automated countOrdered By: Elier Jackson on 04-30-2023 Nucleated RBC Auto Ql (Bld) 0.1 /100{WBC} 0-0.5 [facility] Platelet mean volume Auto (B ld) [Entitic vol]Ordered By: Elier Jackson on 04-30-2023 Platelet mean volume (Bld) [Entitic vol] 8.0 fL 6.3-10.7 [facility] Platelets Auto (Bld) [#/Vol] Ordered By: Elier Jackson on 04-30-2023 Platelets (Bld) [#/Vol] 415 10*3/uL 150-450 [facility] Potassium [Moles/volume] in Serum or PlasmaOrdered By: Elier Jackson on 04-30-2023 Potassium [Moles/Vol] 3.8 mmol/L 3.5-5.1 [facility] Protein Auto test strip (U) [Mass/Vol]Ordered By: Elier Jackson on 04-30-2023 Protein (U) [Mass/Vol] Negative Negative [facility] Protein [Mass/volume] in Ser um or PlasmaOrdered By: Elier Jackson on 04-30-2023 Protein [Mass/Vol] 7.6 g/dL 6.4-8.9 [facility] RBC Auto (Bld) [#/Vol]Ordere d By: Elier Jackson on 04-30-2023 RBC (Bld) [#/Vol] 3.68 10*6/uL 3.60-5.00 [facility] Serum or plasma albumin/glob ulin mass ratioOrdered By: Elier Jackson on 04-30-2023 Albumin/Globulin [Mass ratio] 1.3 {ratio} [facility] Serum or plasma anion gap de terminationOrdered By: Elier Jackson on 04-30-2023 Anion gap [Moles/Vol] 14.7 mmol/L 6.0-15.0 [facility] Serum or plasma non-glucuron idated bilirubin measurement (mass/volume)Ordered By: Elier Jackson on 04-30-2023 Bilirubin.indirect [Mass/Vol] 0.3 mg/dL [facility] Sodium [Moles/volume] in Ser um or PlasmaOrdered By: Elier Jackson on 04-30-2023 Sodium [Moles/Vol] 140 mmol/L 136-145 [facility] Specific gravity Auto test s trip (U) [Rel density]Ordered By: Elier Jackson on 04-30-2023 Specific gravity (U) [Rel density] 1.018 1.001-1.030 [facility] Squamous epithelial cells de tection in urine sediment by light microscopyOrdered By: Elier Jackson on 04-30-2023 Epithelial cells.squamous LM Ql (Urine sed) 0-1 [HPF] 0-2 [facility] US pelvic completeon 023 US pelvic complete [facility] [address] [place] [id number] Ultrasound Report Signed Patient: Livia Noyola MR#: [id number] : 1985 Acct:[id number] Age/Sex: 38 / F ADM Date: 04/30/23 Loc: ER Room: [facility] ER Attending Dr: Ordering Provider: Elier Jackson DO Date of Service: 04/30/23 US/US pelvic complete: L pelvic pain ([id number]) US/US transvaginal: LT PELVIC PAIN Copies to: Elier Jackson DO Pelvic ultrasound. Reason for exam: Left-sided pelvic pain Comparison: Pelvic ultrasound 03/29/2023 Technique: Transabdominal imaging of the uterus and ovaries was performed. Transvaginal imaging of the uterus and ovaries was also obtained. Additional spectral Doppler analysis of the ovaries was also obtained. Findings: Uterus measures 7.2 x 3.0 x 4.2 cm. No evidence of fibroid is seen. Endometrium measures 4.1 mm without focal abnormality. Trace free fluid is seen. Right ovary measures 2.3 x 2.8 x 1.7 cm. The left ovary measures 3.3 x 2.8 x 1.5 cm. No adnexal mass or cyst is noted. Normal arterial and venous Doppler waveforms are noted. US/US transvaginal Impression: Unremarkable pelvic ultrasound. No ultrasound evidence of ovarian torsion. Impression dictated by: Dennis Betancur Jr., PariOEbenezer04/30/2023 6:24 PM Dictation Location: [place] [address] Tech: Brooke Hodge Transcribed By: [facility] 04/30/231823 Dictated By: Dennis Betancur Jr, DO 04/30/231820 Signed By: 04/30/231823 Normal [facility] Urea nitrogen [Mass/volume] in Serum or PlasmaOrdered By: Elier Jackson on 04-30-2023 Urea nitrogen [Mass/Vol] 6 mg/dL 7- [facility] Urine bacteria detection by automated methodOrdered By: Elier Jackson on 04-30-2023 Bacteria Auto Ql (U) None seen None Seen [facility] Urine clarity by refractomet ry automatedOrdered By: Elier Jackson on 04-30-2023 Clarity Refractometry automated (U) Clear Clear [facility] Urine glucose measurement by automated test strip (mass/volume)Ordered By: Elier Jackson on 04-30-2023 Glucose Auto test strip (U) [Mass/Vol] Normal mg/dL Normal [facility] Urine hemoglobin detection b y automated test stripOrdered By: Elier Manuel on 04-30-2023 Hemoglobin Auto test strip Ql (U) 2+ Negative [facility] Urine leukocyte esterase det ection by automated test stripOrdered By: Elier Jackson on 04-30-2023 Leukocyte esterase Auto test strip Ql (U) Negative Negative [facility] Urobilinogen Auto test strip (U) [Mass/Vol]Ordered By: Elier Jackson on 04-30-2023 Urobilinogen (U) [Mass/Vol] Normal mg/dL Normal [facility] WBC Auto (Bld) [#/Vol]Ordere d By: Elier Jackson on 04-30-2023 WBC (Bld) [#/Vol] 3.6 10*3/uL 3.8-11.6 [facility] pH Auto test strip (U)Ordere d By: Elier Jackson on 04-30-2023 pH (U) 5.5 [pH] 5.0-9.0 [facility] Auto Diffon 04-24-2023 Basophils/100 WBC (Bld) 0.3 % Normal 0.0-2.0 F [facility] Comment on above: Order Comment: Order Added by Discern Expert. Performed By: #### 2 [id number], [id number], [id number] ####[facility] [id number] [place] [address] Basophils/Leukocytes Auto (Bld) [Pure # fraction] 0.0 E9/L Normal 0.0-0.2 [facility] Comment on above: Order Comment: Order Added by Discern Expert. Performed By: #### 2 [id number], [id number], [id number], [id number] ####[facility] [id number] [place] [address] Eosinophils/100 WBC (Bld) 0.9 % Normal 0.0-8.0 [facility] Comment on above: Order Comment: Order Added by Discern Expert. Performed By: #### 2 [id number], [id number], [id number], [id number], [id number] ####[facility] [address] [place] [address] Eosinophils/Leukocytes Auto (Bld) [Pure # fraction] 0.0 E9/L Normal 0.0-0.5 [facility] Comment on above: Order Comment: Order Added by Discern Expert. Performed By: #### 2 [id number], [id number], [id number], [id number], [id number] ####[place] [address] [place] [address] Lymphocytes/100 WBC (Bld) 49.9 % Normal 14.0-50.0 [facility] Comment on above: Order Comment: Order Added by Lis Expert. Performed By: #### 2 [id number], [id number], [id number], [id number], [id number] ####[place] [address] [place] [address] Lymphocytes/Leukocytes Auto (Bld) [Pure # fraction] 2.3 E9/L Normal 1.0-4.0 [facility] Comment on above: Order Comment: Order Added by Lis Expert. Performed By: #### 2 [id number], [id number], [id number], [id number], [id number] ####[address] [address] Monocytes/100 WBC (Bld) 7.1 % Normal 4.0-14.0 [facility] Comment on above: Order Comment: Order Added by Lis Expert. Performed By: #### 2 [id number], [id number], [id number], [id number], [id number] ####[address] [address] Monocytes/Leukocytes Auto (Bld) [Pure # fraction] 0.3 E9/L Normal 0.2-1.0 [facility] Comment on above: Order Comment: Order Added by Lis Expert. Performed By: #### 2 149314, 3482284, 9064512, [id number], [id number] ####[facility] [address] [place] [address] Neutrophils/100 WBC (Bld) 41.8 % Normal 36.0-75.0 [facility] Comment on above: Order Comment: Order Added by Discern Expert. Performed By: #### 2 882634, 1306102, 1384168, 82092724, [id number] ####[facility] [address] [place] [address] Neutrophils/Leukocytes Auto (Bld) [Pure # fraction] 2.0 E9/L Normal 2.0-7.5 [facility] Comment on above: Order Comment: Order Added by Discern Expert. Performed By: #### 2 602130, 1342169, 7937402, 43298322, [id number] ####[facility] [address] [place] [address] B hCG Qualon 04-24-2023 Beta HCG ( test) Ql Negative Normal [facility] Comment on above: Performed By: #### 2 752380, 4217371, 1278326, 36646897, [id number] ####[facility] [address] [place] [address] BMPon 04-24-2023 Creatinine [Mass/Vol] 0.7 mg/dL Normal 0.5-1.[address] [facility] Comment on above: Performed By: #### 2 525877, 6327218, 4302859, 58663402, 74391278 ####[facility] [address] [place] [address] Urea nitrogen [Mass/Vol] 6 mg/dL Normal 5-21 [facility] Comment on above: Performed By: #### 2 437607, 0370405, 4675929, 36995372, 64638043 ####[facility] [address] [place] [address] Urea nitrogen/Creatinine [Mass ratio] 9 No Units Low 10-20 [facility] Comment on above: Performed By: #### 2 273067, 2849521, 5072496, 27937400, 87739827 ####[facility] [address] [place] [address] Anion gap [Moles/Vol] 14 mmol/L Normal 6-[address] [facility] Comment on above: Performed By: #### 2 639748, 7461811, 2334241, 12880713, 56497653 ####[facility] [address] [place] [address] Calcium [Mass/Vol] 9.4 mg/dL Normal 8.9-11.1 [facility] Comment on above: Performed By: #### 2 473806, 0099273, 7114241, 72263861, 21509888 ####[facility] [address] [place] [address] Chloride [Moles/Vol] 105 mmol/L Normal 101-111 [facility] Comment on above: Performed By: #### 2 347832, 3472166, 6664614, 96600535, 46555224 ####[facility] [address] [place] [address] CO2 [Moles/Vol] 23 mmol/L Normal 21-31 [facility] Comment on above: Performed By: #### 2 766813, 6047304, 5907059, 06673257, 69187898 ####[facility] [address] [place] [address] Glucose [Mass/Vol] 95 mg/dL Normal 55-199 [facility] Comment on above: Result Comment: If t his glucose result represents a fasting glucose, interpretation should refer to the following reference range: 55-99 mg/dL Performed By: #### 2 293271, 6719193, 4013189, 35410121, 84590210 ####[facility] [address] [place] [address] Potassium [Moles/Vol] 3.8 mmol/L Normal 3.5-5.[address] [facility] Comment on above: Performed By: #### 2 724982, 9152431, 1302604, 80027863, 55640535 ####[facility] [address] [place] [address] Sodium [Moles/Vol] 138 mmol/L Normal 135-145 [facility] Comment on above: Performed By: #### 2 625816, 2154577, 5501552, 18427457, 58264407 ####[facility] [address] [place] [address] CBC w/ Auto Diffon 3 Erythrocyte distribution width (RBC) [Ratio] 15.9 % High 10.9-14.2 [facility] Comment on above: Performed By: #### 2 370539, 8588059, 8359109, 36897827, 52664343 ####[facility] [address] [place] [address] Hematocrit (Bld) [Volume fraction] 33.7 % Low 34.0-46.0 [facility] Comment on above: Performed By: #### 2 314646, 8208596, 5572960, 76310187, 95605570 ####[facility] [address] [place] [address] Hemoglobin (Bld) [Mass/Vol] 11.7 g/dL Low 12.0-16.0 [facility] Comment on above: Performed By: #### 2 620159, 7072566, 7891775, 91769613, 30177676 ####[facility] [address] [place] [address] MCH (RBC) [Entitic mass] 29.7 pg Normal 27.0-34.0 [facility] Comment on above: Performed By: #### 2 154453, 8498976, 0999912, 86865916, 29367428 ####[facility] [address] [place] [address] MCHC (RBC) [Mass/Vol] 34.7 g/dL Normal 31.4-36.[address] [facility] Comment on above: Performed By: #### 2 370022, 1087261, 7882755, 84872347, 87985972 ####[facility] [address] [place] [address] MCV (RBC) [Entitic vol] 85.8 fL Normal 80.0-100.0 [facility] Comment on above: Performed By: #### 2 587465, 0449543, 6008727, 29717316, 77556638 ####[address] [place] [address] Platelet mean volume (Bld) [Entitic vol] 8.2 fL Normal 6.4-10.8 [facility] Comment on above: Performed By: #### 2 313835, 9496309, 3329487, 78360930, 03738932 ####[address] [address] Platelets (Bld) [#/Vol] 398.0 E9/L Normal 150.0-500.0 [facility] Comment on above: Performed By: #### 2 925622, 7559001, 0628972, 35262318, 29491665 ####[address] [address] RBC (Bld) [#/Vol] 3.9 E12/L Low 4.3-5.9 [facility] Comment on above: Performed By: #### 2 790696, 0805192, 3557407, 87712588, 77476229 ####[address] [address] WBC corrected for nucl RBC Auto (Bld) [#/Vol] 4.7 E9/L Normal 4.0-11.0 [facility] Comment on above: Performed By: #### 2 607536, 7799451, 2175950, 38322893, 79046430 ####[address] [address] CHEMISTRYOrdered By: SYSTEM SYSTEM on 04-24-2023 Anion gap [Moles/Vol] 14 mmol/L Normal 6 - 16 mEq/L [facility] Calcium [Mass/Vol] 9.4 mg/dL Normal 8.9 - 11. 1 mg/dL [facility] Chloride [Moles/Vol] 105 mmol/L Normal 101 - 1 11 mmol/L [facility] CO2 [Moles/Vol] 23 mmol/L Normal 21 - 31 mmol/L [facility] Creatinine [Mass/Vol] 0.7 mg/dL Normal 0.5 - 1.3 mg/dL [facility] Remisol GFR/1.73 sq M.predicted among non-blacks MDRD (S/P/Bld) [Vol rate/Area] 115 mL/min/1.73 m2 Normal >=59mL/min/1 .73 m2 [facility] Chem S Comment on above: Interpretive Data: C hronic kidney disease could be indicated at eGFR's of less than 60 mL/min/1.73m2. Kidney failure is indicated at less than 15 mL/min/1.73m2. Glucose [Mass/Vol] 95 mg/dL Normal 55 - 199 mg/dL [facility] Remisol Comment on above: Interpretive Data: I f this glucose result represents a fasting glucose, interpretation should refer to the following reference range: 55-99 mg/dL Potassium [Moles/Vol] 3.8 mmol/L Normal 3.5 - 5.3 mmol/L [facility] Sodium [Moles/Vol] 138 mmol/L Normal 135 - 145 mmol/L [facility] Remisol Urea nitrogen [Mass/Vol] 6 mg/dL Normal 5 - 21 mg/dL [facility] Remisol Urea nitrogen/Creatinine [Mass ratio] 9 mg/mg Low 10 - 20 [facility] Remisol CT Abdomen/Pelvis w/ Contras ton 04-24-2023 CT Abdomen/Pelvis w/ Contrast Exam Date/Time: 04/24/2023 15:20 EST Reason for Exam: Abdominal pain, acute, nonlocalized;Other (please specify) Report IMPRESSION: NO ACUTE ABDOMINOPELVIC PROCESS. EXAM: CT Abdomen/Pelvis w/ Contrast History: Left-sided abdominal pain. Nausea. Technique: Multiple contiguous axial images were obtained of the abdomen and pelvis from the level of the lung bases through the ischial tuberosities with contrast. Multiplanar reformats were obtained. Delayed images were obtained. Comparison: None available Findings: Lung bases are clear. Postsurgical changes of cholecystectomy. The spleen, stomach, pancreas, and adrenal glands are within normal limits. The kidneys enhance uniformly. No urinary tract calculi or hydronephrosis. Urinary bladder is well distended. The uterus is present. Abdominal aorta is nonaneurysmal. No retroperitoneal or abdominal/pelvic lymphadenopathy. No small bowel obstruction. No overt colonic mass or pericolonic inflammation. Appendix is within normal limits. No free fluid or free air. No acute osseous abnormality. All CT scans at this facility use dose modulation, iterative reconstruction, and/or weight based dosing when appropriate to reduce radiation dose to as low as reasonably achievable. Report Ordering Provider: Jignesh Dumont FINAL REPORT Dictated: 04/24/2023 3:29 pm Chad Mo DO Signed (Electronic Signature): 04/24/2023 3:29 pm Signed by: Chad Mo DO Transcribed by: MILLIE Technologist: ALICIA Technical Comments GFR (mL/min/1/73m2) n/a Contrast: Isovue 300 Contrast amount in ml's: 100 Normal [facility] Consent for Treatmenton 04-13 Consent for Treatment [id number] #1.00TIFF Normal [facility] Discharge Instructionson Discharge Instructions [id number] 110 [id number] #1.00TIFF Normal [facility] ED Clinical Summaryon 2022 ED Clinical Summary [place] [id number] ED Clinical Summary Person Information Name: LIVIA NOYOLA/[facility] Age: 38 Years : 1985 Sex: Female Language: Dominican PCP: BETTIE MIRELES Marital Status: Visit Id: Visit Reason: Flank pain; Abdominal pain; ABDOMINAL PAIN Speciality: Acuity: 3 Enc Type: Emergency Med Service: Emergency Arrival: 04/24/2023 13:12:30 Discharge: 04/24/2023 16:04:12 LOS: 000 02:52 Checkin: 04/24/2023 13:12:30 Checkout: 04/24/2023 16:04:12 Dispo Type: Home (Routine DC) EVENTS: Event Name Event Status Request Date/Time Start Date/Time Complete Date/Time Arrive Complete 04/24/2023 13:12:30 04/24/2023 13:12:30 04/24/2023 13:12:30 Document Home Meds Request 04/24/2023 13:12:30 Triage Complete 04/24/2023 13:12:30 04/24/2023 13:32:52 04/24/2023 13:32:52 Registration Complete 04/24/2023 13:16:03 04/24/2023 13:16:03 04/24/2023 13:16:03 Reg Complete Request 04/24/2023 13:16:03 Reg Bed Request Complete 04/24/2023 13:16:03 04/24/2023 13:16:03 04/24/2023 13:16:03 Bed Assign Complete 04/24/2023 13:29:37 04/24/2023 13:29:37 04/24/2023 13:29:37 Dr Exam Complete 04/24/2023 13:29:37 04/24/2023 13:44:09 04/24/2023 13:44:09 RN Exam Complete 04/24/2023 13:29:37 04/24/2023 13:51:28 04/24/2023 13:51:28 Registration Request 04/24/2023 13:44:09 Meds Admin Complete 04/24/2023 13:57:39 04/24/2023 14:13:42 Pending Labs Complete 04/24/2023 13:57:39 04/24/2023 15:13:20 Lab Complete 04/24/2023 13:57:39 04/24/2023 15:13:20 Urine Collect Complete 04/24/2023 13:57:39 04/24/2023 15:13:20 Patient Care Complete 04/24/2023 13:57:39 04/24/2023 14:18:36 CT Complete 04/24/2023 13:57:39 04/24/2023 15:04:25 04/24/2023 15:20:22 Pending Labs Complete 04/24/2023 14:18:30 04/24/2023 14:18:30 04/24/2023 14:31:45 Lab Complete 04/24/2023 14:18:30 04/24/2023 14:18:30 04/24/2023 14:31:45 Pending Labs Complete 04/24/2023 14:23:06 04/24/2023 14:23:06 04/24/2023 14:23:12 Lab Complete 04/24/2023 14:23:06 04/24/2023 14:23:06 04/24/2023 14:23:12 Meds Admin Complete 04/24/2023 14:27:01 04/24/2023 14:30:42 Pending Labs Complete 04/24/2023 14:38:56 04/24/2023 14:38:56 04/24/2023 14:38:56 Discharge Complete 04/24/2023 15:51:44 04/24/2023 16:04:18 04/24/2023 16:04:18 Meds Admin Complete 04/24/2023 15:52:40 04/24/2023 15:56:50 Transfer Complete 04/24/2023 16:04:18 04/24/2023 16:04:18 04/24/2023 16:04:18 ADDRESS: [address] [place] [id number] PHYS DOC NOTES: MEDICAL INFORMATION: Prescriptions Given: New Medications [facility]/pharmacy #[id number], [address], [place] [id number], [phone] oxycodone (oxyCODONE 5 mg Cap) 1 Capsules By Mouth every 6 hours as needed Pain 8-10 for 3 Days. Refills: 0. Medications to Continue with No Changes Other Medications alprazolam (alprazolam 0.25 mg Tab) budesonide-formotero l (Symbicort 80/4.5 inhalation aerosol with adapter) citalopram (citalopram 20 mg Tab) By Mouth every day. PATIENT EDUCATION INFORMATION: Instructions: Abdominal Pain, Adult Follow up: With: Address: When: YOUR OBGYN at [facility] In 3 days 04/27/2023 Comments: Seek immediate medical attention if you develop: worsening abdominal pain, new or worsening nausea, new or worsening vomiting, new or worsening diarrhea, chest pain, shortness of breath, pain with urination, problems urinating, fever, chills, weakness, or any new or worsening symptoms. Call the office of your primary care doctor to arrange for follow-up within the above-stated timeframe. Follow-up with your primary care doctor about this ED visit. You should review your labs, imaging, and diagnoses from this ED visit with your primary care physician. There are occasionally non-emergent findings that require additional follow-up after your ED visit. If you were prescribed medications you should discuss possible side-effects and drug interactions with your pharmacist. Call 911 or go to the nearest Emergency Department if you develop any new or worsening symptoms. 3. DIAGNOSIS: Abdominal pain, acute, left lower quadrant Normal [facility] ED Note-Physicianon 04-24-20 ED Note-Physician Basic Information Time Seen: Jignesh Dumont DO 04/24/2023 13:44 Chief Complaint abd pain LLQ and left flank pain. hx of ovarian cysts. History of Present Illness 38-year-old female to the emergency department chief complaint of left-sided lower abdominal pain. Radiates into her left flank. Patient is concerned that she has a history of ovarian cyst and had to have surgery for removal of 1 because it was bleeding. She denies . She also reports she has a history of endometriosis which causes similar pain. Review of Systems A 10 point review of systems is negative except as noted above. Medical and Surgical History: Reviewed and noted Social history: Lives at home Tobacco: Denies Physical Exam Vitals & Measurements T: 37.3 ?C(Oral) HR: 98(Monitored) RR: 17 BP: 120/81 SpO2: 99% HT: 165.1 cm WT: 84 kg BMI: 30.82 VITALS: I have reviewed the triage vital signs. GENERAL: Well developed, well appearing adult in no acute distress. NEURO: Alert and oriented. Moves all extremities. Face is symmetric and expressive. EYES: PERRL. No scleral icterus or conjunctival injection. No discharge. HENT: Normocephalic, atraumatic. Hearing is grossly intact. Nares grossly patent and without discharge. Mucous membranes moist. NECK: No JVD. Patient moves neck without restriction. CARDIO: Rhythm regular. Normal rate. No murmur, rub, or gallop. Pulses equal bilaterally in the upper and lower extremity. No lower extremity edema. PULM: Lungs clear to auscultation in all hol[place]. No wheezes, rales, or rhonchi. No conversational dyspnea. No splinting, stridor, or accessory muscle use. GI/: Abdomen is soft and non-tender. Normoactive bowel sounds. EXTREMITIES: Symmetric muscle bulk. No joint swelling. No clubbing, cyanosis, or deformity. SKIN: Warm and dry. Normal turgor. No rash or lesions appreciated. PSYCH: Mood, affect, and interaction is appropriate to the setting. Medical Decision Making 38-year-old female to the emergency department chief complaint of left-sided flank/abdominal pain. Vital stable, the patient is afebrile. Abdominal examination is benign. I did review on clinic [facility]. She has a visit at [facility] for similar symptoms in the middle of March. She had a negative ultrasound and CT at that time. Labs, CT imaging are ordered. Symptomatic therapy. Patient agrees with this plan. CBC and chemistry without acute findings. Urinalysis without evidence of infection. Her hCG is negative. CT scan without acute findings. Symptoms responded well to pain medication. Likely her endometrial-itis. Symptomatic therapy for home. 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 Return precautions were discussed. All questions were answered. The patient was discharged home. Assessment/Plan Abdominal pain, acute, left lower quadrant (R10.32: Left lower quadrant pain) Ordered: oxycodone, 5 mg = 1 cap(s), Oral, q6hr, PRN Pain 8-10, X 3 day(s), # 12 cap(s), Refills(s) 0, Pharmacy: [facility]/pharmacy #[id number], 165.1, cm, 04/24/23 13:32:00 EST, Height/Length Dosing, 84, kg, 04/24/23 13:32:00 EST, Weight Dosing Orders: acetaminophen-oxycod one, 1 tab(s), Tab, Oral, Once, Stop date 04/24/23 15:52:00 EST, STAT, Start date 04/24/23 15:52:00 EST HYDROmorphone, 0.5 mg = 0.5 mL, Injection, IV Push, Once, Stop date 04/24/23 14:26:00 EST, STAT, Start date 04/24/23 14:26:00 EST, 04/24/23 14:26:00 EST ketorolac, 30 mg = 1 mL, Injection, IV Push, Once, Stop date 04/24/23 13:57:00 EST, STAT, Start date 04/24/23 13:57:00 EST, 04/24/23 13:57:00 EST ondansetron, 4 mg = 2 mL, Injection, IV Push, Once, Stop date 04/24/23 13:57:00 EST, STAT, Start date 04/24/23 13:57:00 EST, 04/24/23 13:57:00 EST Sodium Chloride 0.9% intravenous solution, 1,000 mL, Soln-IV, IV, Once, Stop date 04/24/23 13:57:00 EST, STAT, Start date 04/24/23 13:57:00 EST, Infuse over 61, minute(s) Automated Diff Basic Metabolic Panel Beta hCG Qual CBC w/ Auto Diff CT Abdomen/Pelvis w/ Contrast ED Cardiac Monitoring eGFR Extra Blue Tube Saline Lock Insert UA With Cult Reflex Medications Administered Given HYDROmorphone 1 mg/mL injectable solution, 0.5 mg, IV Push ketorolac 30 mg/mL Inj 1 mL, 30 mg, IV Push NS 1000 ml Bolus, 1000 mL, IV ondansetron 4 mg/2 mL Inj, 4 mg, IV Push Percocet 5 mg-325 mg oral tablet, 1 tab(s), Oral Disposition Plan Patient Discharge Condition Stable Discharge Disposition Home Discharge Prescription List Prescriptions oxyCODONE 5 mg Cap, 5 mg= 1 cap(s), Oral, q6hr, PRN Follow-up With When Contact Information YOUR OBGYN at [facility] In 3 days 04/27/2023 EST Additional Instructions: Seek immediate medical attention if you develop: worsening abdominal pain, new or worsening nausea, new or worsening vomiting, new or worsening diarrhea, chest pain, shortness of breath, pain with urination, problems urinating, fever, chills, weakness, or any new or worsening symptoms. Call the office of your primary care doctor to arrange for follow-up with (more content not included)... Normal [facility] Comment on above: Result Comment: Elec tronically Signed By: Jignesh Dumont DO\.br\Date and Time Signed: 04/24/23 17:56 EST ED Patient Education Noteon 04-24-2023 ED Patient Education Note Gastroenterology Abdominal Pain, Adult Pain in the abdomen (abdominal pain) can be caused by many things. Often, abdominal pain is not serious and it gets better with no treatment or by being treated at home. However, sometimes abdominal pain is serious. Your health care provider will ask questions about your medical history and do a physical exam to try to determine the cause of your abdominal pain. Follow these instructions at home: Medicines ? Take qvlr-npe-ahkcnrd and prescription medicines only as told by your health care provider. ? Do not take a laxative unless told by your health care provider. General instructions ? Watch your condition for any changes. ? Drink enough fluid to keep your urine pale yellow. ? Keep all follow-up visits as told by your health care provider. This is important. Contact a health care provider if: ? Your abdominal pain changes or gets worse. ? You are not hungry or you lose weight without trying. ? You are constipated or have diarrhea for more than 2?3 days. ? You have pain when you urinate or have a bowel movement. ? Your abdominal pain wakes you up at night. ? Your pain gets worse with meals, after eating, or with certain foods. ? You are vomiting and cannot keep anything down. ? You have a fever. ? You have blood in your urine. Get help right away if: ? Your pain does not go away as soon as your health care provider told you to expect. ? You cannot stop vomiting. ? Your pain is only in areas of the abdomen, such as the right side or the left lower portion of the abdomen. Pain on the right side could be caused by appendicitis. ? You have bloody or black stools, or stools that look like tar. ? You have severe pain, cramping, or bloating in your abdomen. ? You have signs of dehydration, such as: ? Dark urine, very little urine, or no urine. ? Cracked lips. ? Dry mouth. ? Sunken eyes. ? Sleepiness. ? Weakness. ? You have trouble breathing or chest pain. Summary ? Often, abdominal pain is not serious and it gets better with no treatment or by being treated at home. However, sometimes abdominal pain is serious. ? Watch your condition for any changes. ? Take krjc-els-covwhbw and prescription medicines only as told by your health care provider. ? Contact a health care provider if your abdominal pain changes or gets worse. ? Get help right away if you have severe pain, cramping, or bloating in your abdomen. This information is not intended to replace advice given to you by your health care provider. Make sure you discuss any questions you have with your health care provider. Document Revised: 07/18/2020 Document Reviewed: 10/08/2019 [employer] Patient Education ? 2022 [employer] Normal [facility] ED Patient Summaryon 023 ED Patient Summary [place] [id number] Patient Discharge Instructions Person Information Name: LIVIA NOYOLA Age: 38 Years Arrival Date: 04/24/2023 13:12:30 Discharge Diagnosis: Abdominal pain, acute, left lower quadrant Primary Care Physician: BETTIE MIRELES Provider Information Primary Provider: Jignesh Dumont DO Advanced Business Office Representative:Shazia The exam and treatment you received in the Emergency Department were for an urgent problem and are not intended as complete care. It is important that you follow up with a doctor, nurse practitioner, or physician?s speech assistant for ongoing care. If your symptoms become worse or you do not improve as expected and you are unable to reach your usual health care provider, you should return to the Emergency Department. We are available 24 hours a day. LIVIA NOYOLA has been given the following list of patient education materials, prescriptions and follow-up instructions: Follow-up Instructions: With: Address: When: YOUR OBGYN at [facility] In 3 days 04/27/2023 Comments: Seek immediate medical attention if you develop: worsening abdominal pain, new or worsening nausea, new or worsening vomiting, new or worsening diarrhea, chest pain, shortness of breath, pain with urination, problems urinating, fever, chills, weakness, or any new or worsening symptoms. Call the office of your primary care doctor to arrange for follow-up within the above-stated timeframe. Follow-up with your primary care doctor about this ED visit. You should review your labs, imaging, and diagnoses from this ED visit with your primary care physician. There are occasionally non-emergent findings that require additional follow-up after your ED visit. If you were prescribed medications you should discuss possible side-effects and drug interactions with your pharmacist. Call 911 or go to the nearest Emergency Department if you develop any new or worsening symptoms. 3. In the event that this physician does not participate in your insurance network, please consult with your insurance company to find a nearby participating provider. Patient Education Materials: Abdominal Pain, Adult A MESSAGE TO ALL PATIENTS REGARDING OPIOIDS PRESCRIPTION OPIOIDS: WHAT YOU NEED TO KNOW Prescription opioids can be used to help relieve ccbwdeym-ni-nosmqg pain and are often prescribed following a surgery or injury, or for certain health conditions. These medications can be an important part of the treatment but also come with serious risks. It is important to work with your healthcare provider to make sure you are getting the safest, most effective care. WHAT ARE THE RISKS AND SIDE EFFECTS OF OPIOID USE? Prescription opioids carry serious risks of addiction and overdose, especially with prolonged use. An opioid overdose, often marked by slowed breathing, can cause sudden . The use of prescription opioids can have a number of side effects as well, even when taken as directed: ? Tolerance?meaning you might need to take more of the medication for the same pain relief ? Physical dependence?meaning you have symptoms of withdrawal when a medication is stopped ? Increased sensitivity to pain ? Constipation ? Nausea, vomiting, and dry mouth ? Sleepiness and dizziness ? Confusion ? Depression ? Low levels of testosterone that can result in lower sex drive, energy, and strength ? Itching and sweating RISKS ARE GREATER WITH: ? History of drug misuse, substance use disorder, or overdose ? Mental health conditions (such as depression or anxiety) ? Sleep apnea ? Older age (65 years and older) ? Avoid alcohol while taking prescription opioids. Also, unless specifically advised by your health care provider, medications to avoid include: ? Benzodiazepines (such as Xanax or Valium) ? Muscle relaxants (such as Soma or Flexeril) ? Hypnotics (such as Ambien or Lunesta) ? Other prescription opioids KNOW YOUR OPTIONS Talk to your health care provider about ways to manage your pain that don?t involve prescription opioids. Some of these options may actually work better and have fewer risks and side effects. Options may include: ? Pain relievers such as acetaminophen, ibuprofen, and naproxen ? Some medication that are also used for depression or seizures ? Physical therapy and exercise ? Cognitive behavioral therapy, a psychological, goal-directed approach, in which patients learn how to modify physical, behavioral, and emotional triggers of pain and stress. IF YOU ARE PRESCRIBED OPIOIDS FOR PAIN: ? Never take opioids in greater amounts or more often than prescribed. ? Follow up with your primary health care provider. o Work together to create a plan on how to manage your pain. o Talk about ways to help manage your pain that don?t involve prescription opioids. o Talk about (more content not included)... Normal [facility] HEMATOLOGYOrdered By: [employer] on 04-24-2023 Basophils/100 WBC (Bld) 0.3 % Normal 0.0 - 2.0 % [facility] HemeAutoSS Basophils/Leukocytes Auto (Bld) [Pure # fraction] 0.0 E9/L Normal 0.0 - 0.2 E9/L [facility]eAuto[facility] Eosinophils/100 WBC (Bld) 0.9 % Normal 0.0 - 8.0 % [facility]eAutoSS Eosinophils/Leukocytes Auto (Bld) [Pure # fraction] 0.0 E9/L Normal 0.0 - 0.5 E9/L [facility]Auto[facility] Lymphocytes/100 WBC (Bld) 49.9 % Normal 14.0 - 50.0 % [facility]eAutoSS Lymphocytes/Leukocytes Auto (Bld) [Pure # fraction] 2.3 E9/L Normal 1.0 - 4.0 E9/L [facility]eAuto[facility] Monocytes/100 WBC (Bld) 7.1 % Normal 4.0 - 14.0 % [facility]eAutoSS Monocytes/Leukocytes Auto (Bld) [Pure # fraction] 0.3 E9/L Normal 0.2 - 1.0 E9/L [facility] Neutrophils/100 WBC (Bld) 41.8 % Normal 36.0 - 75.0 % [facility]eAutoSS Neutrophils/Leukocytes Auto (Bld) [Pure # fraction] 2.0 E9/L Normal 2.0 - 7.5 E9/L [facility] HEMATOLOGYOrdered By: Yonas Ramirez on 04-24-2023 Erythrocyte distribution width (RBC) [Ratio] 15.9 % High 10.9 - 14.2 % [facility]Auto[facility] Hematocrit (Bld) [Volume fraction] 33.7 % Low 34.0 - 46.0 % [facility]Auto[facility] Hemoglobin (Bld) [Mass/Vol] 11.7 g/dL Low 12.0 - 16.0 gm/dL [facility] MCH (RBC) [Entitic mass] 29.7 pg Normal 27.0 - 34.0 pg [facility] HemeAutoSS MCHC (RBC) [Mass/Vol] 34.7 g/dL Normal 31.4 - 36.0 gm/dL [facility]eAuto[facility] MCV (RBC) [Entitic vol] 85.8 fL Normal 80.0 - 100.0 fL [facility] Platelet mean volume (Bld) [Entitic vol] 8.2 fL Normal 6.4 - 10.8 fL [facility]Auto[facility] Platelets (Bld) [#/Vol] 398.0 E9/L Normal 150. 0 - 500.0 E9/L [facility] RBC (Bld) [#/Vol] 3.9 E12/L Low 4.3 - 5.9 E12/L [facility] WBC corrected for nucl RBC Auto (Bld) [#/Vol] 4.7 E9/L Normal 4.0 - 11.0 E9/L [facility] SEROLOGYOrdered By: Brooke Guthrie on 04-24-2023 Beta HCG ( test) Ql Negative (04/24/23 1:55 PM) Normal [facility] Man Sero UA With Cult Reflexon 2022 Bacteria LM Ql (Urine sed) TRACE Normal Trace [facility] Comment on above: Performed By: #### 1 [id number] ####[facility] [address] [place] [address] Bilirubin Ql (U) Negative Normal Negative [facility] Comment on above: Performed By: #### 1 [id number] ####[facility] [address] [place] [address] Clarity (U) CLEAR Normal Clear [facility] Comment on above: Performed By: #### 1 [id number] ####[facility] [address] [place] [address] Color (U) STRAW Abnormal Yellow [facility] Comment on above: Performed By: #### 1 [id number] ####[address] [address] Epithelial cells.squamous LM.HPF (Urine sed) [#/Area] 3-4 Normal 0-2 [facility] Comment on above: Performed By: #### 1 [id number] ####[id number] [place] [address] Glucose Test strip (U) [Mass/Vol] Negative Normal Negative [facility] Comment on above: Performed By: #### 1 [id number] ####[address] [address] Hemoglobin Ql (U) Negative Normal Negative [facility] Comment on above: Performed By: #### 1 [id number] ####[address] [address] Ketones (U) [Mass/Vol] Negative Normal Negative [facility] Comment on above: Performed By: #### 1 [id number] ####[address] [address] [place].plasma/[place]. RBC (Bld) [Mass ratio] 0-3 Normal 0-3 [facility] Comment on above: Performed By: #### 1 [id number] ####[address] [address] Nitrite Ql (U) Negative Normal Negative [facility] Comment on above: Performed By: #### 1 [id number] ####[address] [address] pH (U) 7.0 [pH] Invalid Interpretation Code 5.0-9.0 [facility] Comment on above: Performed By: #### 1 [id number] ####[address] [address] Protein (U) [Mass/Vol] Negative Normal Negative [facility] Comment on above: Performed By: #### 1 [id number] ####[address] [address] Specific gravity (U) [Rel density] <=1.005 Invalid Interpretation Code 1.005-1.030 [facility] Comment on above: Performed By: #### 1 [id number] ####[facility] [address] [place] [address] Type of Urine collection method Clean Catch Normal [facility] Comment on above: Performed By: #### 1 [id number] ####[facility] [address] [place] [address] Urobilinogen Qn (U) 0.2 {Ivone'U}/dL Normal 0.0-1.0 [facility] Comment on above: Performed By: #### 1 [id number] ####[facility] [address] [place] [address] WBC Auto Ql (U) TRACE Abnormal Negative [facility] Comment on above: Performed By: #### 1 [id number] ####[facility] [address] [place] [address] WBC LM.HPF (Urine sed) [#/Area] 0-5 Normal 0-5 [facility] Comment on above: Performed By: #### 1 [id number] ####[facility] [address] [place] [address] URINALYSISOrdered By: Chance Guthrie on 04-24-2023 Bacteria LM Ql (Urine sed) Trace /HPF Normal Trace/HPF [facility] UA Auto SS Bilirubin Ql (U) Negative (04/24/23 2:56 PM) Normal Negative [facility] UA Auto SS Clarity (U) Clear (04/24/23 2:56 PM) Normal Clear [facility] UA Auto SS Color (U) Straw *ABN* (04/24/23 2:56 PM) Invalid Interpretation Code Yellow [facility] UA Auto SS Epithelial cells.squamous LM.HPF (Urine sed) [#/Area] 3-4 /HPF Normal 0-2/HPF [facility] UA Aut o SS Glucose Test strip (U) [Mass/Vol] Negative (04/24/23 2:56 PM) Normal Negative [facility] UA Auto SS Hemoglobin Ql (U) Negative (04/24/23 2:56 PM) Normal Negative [facility] UA Auto SS Ketones (U) [Mass/Vol] Negative (04/24/23 2:56 PM) Normal Negative [facility] UA Auto SS [place].plasma/[place]. RBC (Bld) [Mass ratio] 0-3 /HPF Normal 0-3/HPF [facility] UA A uto SS Nitrite Ql (U) Negative (04/24/23 2:56 PM) Normal Negative [facility] UA Auto SS pH (U) 7.0 *NA* (04/24/23 2:56 PM) Invalid Interpretation Code 5.0 - 9.0 [facility] UA Auto SS Protein (U) [Mass/Vol] Negative (04/24/23 2:56 PM) Normal Negative [facility] UA Auto SS Specific gravity (U) [Rel density] <=1.005 *NA* (04/24/23 2:56 PM) Invalid Interpretation Code 1.005 - 1.030 [facility] UA Auto SS UA Spec Desc Clean Catch (04/24/23 2:56 PM) Normal [facility] UA Auto SS Urobilinogen Qn (U) 0.6223482 {Ivone'U}/dL Normal 0.0 - 1.0 EU/dL [facility] UA Auto SS WBC Auto Ql (U) Trace *ABN* (04/24/23 2:56 PM) Invalid Interpretation Code Negative [facility] UA Auto SS WBC LM.HPF (Urine sed) [#/Area] 0-5 /HPF Normal 0-5/HPF [facility] UA Auto SS eGFRon 04-24-2023 GFR/1.73 sq M.predicted among non-blacks MDRD (S/P/Bld) [Vol rate/Area] 115 mL/min/1.73 m2 Normal >=59 [facility] Comment on above: Order Comment: Order added by Discern Expert. Result Comment: Certified Hand Therapist franklin kidney disease could be indicated at eGFR's of less than 60 mL/min/1.73m2. Kidney failure is indicated at less than 15 mL/min/1.73m2. Performed By: #### 2 [id number] ####[facility] [id number] [place] [address] Anisocytosis LM Ql (Bld)Orde red By: Ming Childress on 04-02-2023 Anisocytosis Ql (Bld) Moderate [facility] Automated erythrocytes count in urine sediment (number/area)Ordered By: Ming Childress on 04-02-2023 RBC Auto (Urine sed) [#/Area] 20-49 [HPF] 0-4 [facility] Automated leukocytes count i n urine sediment (number/area)Ordered By: Ming Childress on 04-02-2023 WBC Auto (Urine sed) [#/Area] 3-4 [HPF] 0-4 [facility] Basic Metabolic Panelon 03-14 Anion gap [Moles/Vol] 14.2 mmol/L Normal 6.0-15.0 [facility] Comment on above: Performed By: #### H CGQNT #### [facility] [address] Calcium [Mass/Vol] 9.2 mg/dL Normal 8.6-10.3 [facility] Comment on above: Performed By: #### H CGQNT #### [facility] [address] Chloride [Moles/Vol] 108 mmol/L High 98-107 [facility] Comment on above: Performed By: #### H CGQNT #### [facility] [address] CO2 [Moles/Vol] 18.5 mmol/L Low 21.0-31.0 [facility] Comment on above: Performed By: #### H CGQNT #### [facility] [address] [place] [address] [place] Creatinine [Mass/Vol] 0.84 mg/dL Normal 0.60-1.20 [facility] Comment on above: Performed By: #### H CGQNT #### [facility] [address] [place] [address] [place] Creatinine Clr Calc Pharmacy 97.72 Normal [facility] Comment on above: Result Comment: PERF ORMED BY: [place] [address] PATHOLOGIST ED CASE MANAGER FARNAZ ZULETA M.D. Performed By: #### H CGQNT #### [facility] [address] [place] [address] [place] GFR/1.73 sq M.predicted MDRD (S/P/Bld) [Vol rate/Area] mL/min/{1.73_m2} Normal [facility] Comment on above: Performed By: #### H CGQNT #### [facility] [address] [place] [address] [place] Glucose [Mass/Vol] 94 mg/dL Normal 70-100 [facility] Comment on above: Result Comment: [place] Glucose Reference Range is dependent on time and content of last meal. Glucose of more than 200 mg/dL in a nonstressed, ambulatory subject supports the diagnosis of Diabetes Mellitus. ADA recommended reference range Performed By: #### H CGQNT #### [facility] [address] [place] [address] [place] Potassium [Moles/Vol] 3.7 mmol/L Normal 3.5-5.1 [facility] Comment on above: Performed By: #### H CGQNT #### [facility] [address] [place] [address] [place] Sodium [Moles/Vol] 137 mmol/L Normal 136-145 [facility] Comment on above: Performed By: #### H CGQNT #### [facility] [address] [place] [address] [place] Urea nitrogen [Mass/Vol] 9 mg/dL Normal 7-25 [facility] Comment on above: Performed By: #### H CGQNT #### [facility] [address] [place] [address] [place] Basophils Auto (Bld) [#/Vol] Ordered By: Ming Childress on 04-02-2023 Basophils (Bld) [#/Vol] N/A F [facility] Basophils/100 WBC Auto (Bld) Ordered By: Ming Childress on 04-02-2023 Basophils/100 WBC (Bld) N/A F [facility] Basophils/100 WBC Manual cnt (Bld)Ordered By: Ming Childress on 04-02-2023 Basophils/100 WBC (Bld) 1 % 0-2 F [facility] Bilirubin Test strip Ql (U)O rdered By: Ming Childress on 04-02-2023 Bilirubin Ql (U) Negative Negative [facility] Calcium [Mass/volume] in Ser um or PlasmaOrdered By: Ming Childress on 04-02-2023 Calcium [Mass/Vol] 9.2 mg/dL 8.6-10.3 [facility] Carbon dioxide, total [Moles /volume] in Serum or PlasmaOrdered By: Ming Childress on 04-02-2023 CO2 [Moles/Vol] 18.5 mmol/L 21.0-31.0 [facility] Chloride [Moles/volume] in S binu or PlasmaOrdered By: Ming Childress on 04-02-2023 Chloride [Moles/Vol] 108 mmol/L 98-107 [facility] Color Auto (U)Ordered By: Carmen Childress on 04-02-2023 Color (U) Yellow Yellow [facility] Creatinine [Mass/volume] in Serum or PlasmaOrdered By: Ming Childress on 04-02-2023 Creatinine [Mass/Vol] 0.84 mg/dL 0.60-1.20 [facility] Diff and CBCon 04-02-2023 Anisocytosis Ql (Bld) Moderate Normal [facility] Comment on above: Performed By: #### H CGQNT #### [facility] [address] [place] [address] [place] Basophils/100 WBC (Bld) 1 % Normal 0-2 F [facility] Comment on above: Performed By: #### H CGQNT #### [facility] [address] [place] [id number] [place] Eosinophils/100 WBC (Bld) 4 % High 1-3 [facility] Comment on above: Performed By: #### H CGQNT #### [facility] [address] [place] [address] [place] Erythrocyte distribution width (RBC) [Ratio] 15.2 % Normal 11.9-15.3 [facility] Comment on above: Performed By: #### H CGQNT #### [address] Hematocrit (Bld) [Volume fraction] 36.1 % Normal 34.0-46.4 [facility] Comment on above: Performed By: #### H CGQNT #### [address] Hemoglobin (Bld) [Mass/Vol] 11.5 g/dL Low 11.8-15.4 [facility] Comment on above: Performed By: #### H CGQNT #### [address] Hypochromasia Slight Normal [facility] Comment on above: Performed By: #### H CGQNT #### [address] Lymphocytes/100 WBC (Bld) 43 % High 18-42 [facility] Comment on above: Performed By: #### H CGQNT #### [address] MCH (RBC) [Entitic mass] 24.5 pg Low 24.7-34.3 [facility] Comment on above: Performed By: #### H CGQNT #### [address] MCV (RBC) [Entitic vol] 77.3 fL Low 80-100 F [facility] Comment on above: Performed By: #### H CGQNT #### [address] Mean Corpuscular HGB Conc 31.8 g/dL Low 32.0-35.0 [facility] Comment on above: Performed By: #### H CGQNT #### [address] Monocytes/100 WBC (Bld) 18.83 % Normal 0.00-20.00 F [facility] Comment on above: Performed By: #### H CGQNT #### [address] Monocytes/100 WBC (Bld) 5 % Normal 2-11 F [facility] Comment on above: Performed By: #### H CGQNT #### [facility] [address] [place] [address] [place] Nucleated Red Blood Cell 3 /100{WBC} High 0-0 [facility] Comment on above: Performed By: #### H CGQNT #### [facility] [address] [place] [address] [place] Ovalocytes Slight Normal [facility] Comment on above: Performed By: #### H CGQNT #### [facility] [address] [place] [address] Platelet Estimate Increased Normal Normal [facility] Comment on above: Performed By: #### H CGQNT #### [address] Platelet mean volume (Bld) [Entitic vol] 8.1 fL Normal 6.3-10.7 [facility] Comment on above: Result Comment: PERF ORMED BY: [place] [address] PATHOLOGIST ED CASE MANAGER FARNAZ ZULETA M.D. Performed By: #### H CGQNT #### [facility] [address] [place] [address] Platelet Morphology Normal Normal Normal [facility] Comment on above: Result Comment: PERF ORMED BY: [place] [address] PATHOLOGIST ED CASE MANAGER FARNAZ ZULETA M.D. Performed By: #### H CGQNT #### [facility] [address] [place] [address] [place] Platelets (Bld) [#/Vol] 492 10*3/uL High 150-450 [facility] Comment on above: Performed By: #### H CGQNT #### [facility] [address] [place] [address] [place] Poikilocytosis Slight Normal [facility] Comment on above: Performed By: #### H CGQNT #### [facility] [address] [place] [address] [place] Polychromasia Moderate Normal [facility] Comment on above: Performed By: #### H CGQNT #### [facility] [address] [place] [address] [place] RBC (Bld) [#/Vol] 4.67 10*6/uL Normal 3.60-5.00 [facility] Comment on above: Performed By: #### H CGQNT #### [address] Segmented neutrophils/100 WBC (Bld) 47 % Low 50-70 [facility] Comment on above: Performed By: #### H CGQNT #### [facility] [address] [place] [address] Smudge Cells Slight Normal [facility] Comment on above: Performed By: #### H CGQNT #### [address] Toxic Vacuolation Slight Normal [facility] Comment on above: Performed By: #### H CGQNT #### [facility] [address] [place] [address] WBC (Bld) [#/Vol] 6.8 10*3/uL Normal 3.8-11.6 [facility] Comment on above: Performed By: #### H CGQNT #### [facility] [address] [place] [address] [place] Dipstick and Microscopicon 1 Appearance (U) Clear Normal Clear [facility] Comment on above: Order Comment: Name Collection Type:: Clean-Voided Midstream Performed By: #### U HCG, ADDONUAPLUS #### [facility] [address] [place] [address] [place] Bacteria,Urine None Seen Normal None Seen [facility] Comment on above: Order Comment: Name Collection Type:: Clean-Voided Midstream Performed By: #### U HCG, ADDONUAPLUS #### [place] [address] [place] Bilirubin,Urine Negative Normal Negative [facility] Comment on above: Order Comment: Name Collection Type:: Clean-Voided Midstream Performed By: #### U HCG, ADDONUAPLUS #### [facility] [address] [place] [address] [place] Color (U) Yellow Normal Yellow [facility] Comment on above: Order Comment: Name Collection Type:: Clean-Voided Midstream Performed By: #### U HCG, ADDONUAPLUS #### [facility] [address] [place] [address] [place] Glucose Ql (U) Normal Normal Normal [facility] Comment on above: Order Comment: Name Collection Type:: Clean-Voided Midstream Performed By: #### U HCG, ADDONUAPLUS #### [facility] [address] [place] [address] [place] Hyaline Casts,Urine 0-8 Normal 0-8 [facility] Comment on above: Order Comment: Name Collection Type:: Clean-Voided Midstream Performed By: #### U HCG, ADDONUAPLUS #### [facility] [address] [place] [address] [place] Ketones Ql (U) Trace High Negative [facility] Comment on above: Order Comment: Name Collection Type:: Clean-Voided Midstream Performed By: #### U HCG, ADDONUAPLUS #### [place] [address] [place] Leukocyte esterase Test strip Ql (U) 1+ High Negative [facility] Comment on above: Order Comment: Name Collection Type:: Clean-Voided Midstream Performed By: #### U HCG, ADDONUAPLUS #### [facility] [address] [place] [address] [place] Nitrite,Urine Negative Normal Negative [facility] Comment on above: Order Comment: Name Collection Type:: Clean-Voided Midstream Performed By: #### U HCG, ADDONUAPLUS #### [place] [address] [place] Occult Blood,Urine 3+ High Negative [facility] Comment on above: Order Comment: Name Collection Type:: Clean-Voided Midstream Performed By: #### U HCG, ADDONUAPLUS #### [facility] [address] [place] [address] pH (U) 6.0 [pH] Normal 5.0-9.0 [facility] Comment on above: Order Comment: Name Collection Type:: Clean-Voided Midstream Performed By: #### U HCG, ADDONUAPLUS #### [facility] [address] [place] [address] Protein,Urine Negative Normal Negative [facility] Comment on above: Order Comment: Name Collection Type:: Clean-Voided Midstream Performed By: #### U HCG, ADDONUAPLUS #### [address] RBC,Urine 20-49 High 0-4 [facility] Comment on above: Order Comment: Name Collection Type:: Clean-Voided Midstream Performed By: #### U HCG, ADDONUAPLUS #### [address] Specificy [place],Urine 1.018 Normal 1.001-1.030 [facility] Comment on above: Order Comment: Name Collection Type:: Clean-Voided Midstream Performed By: #### U HCG, ADDONUAPLUS #### [address] Squamous Epithelial Cell,Urine 3-4 High 0-2 [facility] Comment on above: Order Comment: Name Collection Type:: Clean-Voided Midstream Performed By: #### U HCG, ADDONUAPLUS #### [facility] [address] [place] [address] Urobilinogen,Urine Normal Normal Normal [facility] Comment on above: Order Comment: Name Collection Type:: Clean-Voided Midstream Performed By: #### U HCG, ADDONUAPLUS #### [address] WBC,Urine 3-4 Normal 0-4 [facility] Comment on above: Order Comment: Name Collection Type:: Clean-Voided Midstream Performed By: #### U HCG, ADDONUAPLUS #### [address] [place] [address] [place] Eosinophils Auto (Bld) [#/Vo l]Ordered By: Ming Childress on 04-02-2023 Eosinophils (Bld) [#/Vol] N/A [facility] Eosinophils/100 WBC Auto (Bl d)Ordered By: Ming Childress on 04-02-2023 Eosinophils/100 WBC (Bld) N/A [facility] Eosinophils/100 WBC Manual c nt (Bld)Ordered By: Ming Childress on 04-02-2023 Eosinophils/100 WBC (Bld) 4 % 1-3 [facility] Erythrocyte distribution wid th Auto (RBC) [Ratio]Ordered By: Ming Childress on 04-02-2023 Erythrocyte distribution width (RBC) [Ratio] 15.2 % 11.9-15.3 [facility] Glucose [Mass/volume] in Ser um or PlasmaOrdered By: Ming Childress on 04-02-2023 Glucose [Mass/Vol] 94 mg/dL 70-100 [facility] Comment on above: ADA recommended refe rence rangeRandom Glucose Reference Range is dependent on time and content of last meal. Glucose of more than 200 mg/dL in a nonstressed, ambulatory subject supports the diagnosis of Diabetes Mellitus. HCG ( test) IA.rapi d Ql (U)Ordered By: Ming Childress on 04-02-2023 HCG ( test) Ql (U) Negative [facility] HCG,Urineon 04-02-2023 Beta HCG ( test) Ql (U) Negative Normal [facility] Comment on above: Order Comment: Name Collection Type:: Clean-Voided Midstream Result Comment: PERF ORMED BY: [facility] [address] [place] [address] PATHOLOGIST ED CASE MANAGER FARNAZ ZULETA M.D. Performed By: #### U HCG, ADDONUAPLUS #### [facility] [address] [place] [address] Hematocrit Auto (Bld) [Volum e fraction]Ordered By: Ming Childress on 04-02-2023 Hematocrit (Bld) [Volume fraction] 36.1 % 34.0-46.4 [facility] Hemoglobin [Mass/volume] in BloodOrdered By: Ming Childress on 04-02-2023 Hemoglobin (Bld) [Mass/Vol] 11.5 g/dL 11.8-15.4 [facility] Hypochromia LM Ql (Bld)Order ed By: Ming Childress on 04-02-2023 Hypochromia Ql (Bld) Slight [facility] Ketones Auto test strip (U) [Mass/Vol]Ordered By: Ming Childress on 04-02-2023 Ketones (U) [Mass/Vol] Trace Negative [facility] - UrinalysisOrder ed By: Ming Childress on 04-02-2023 Hyaline casts LM Ql (Urine sed) 0-8 [LPF] 0-8 [facility] Leukocytes [#/volume] correc flo for nucleated erythrocytes in Blood by Automated counOrdered By: Ming Childress on 04-02-2023 WBC corrected for nucl RBC Auto (Bld) [#/Vol] 6.8 10*3/uL 3.8-11.6 [facility] Lymphocytes Auto (Bld) [#/Vo l]Ordered By: Ming Childress on 04-02-2023 Lymphocytes (Bld) [#/Vol] N/A [facility] Lymphocytes/100 WBC Auto (Bl d)Ordered By: Ming Childress on 04-02-2023 Lymphocytes/100 WBC (Bld) N/A [facility] Lymphocytes/100 WBC Manual c nt (Bld)Ordered By: Ming Childress on 04-02-2023 Lymphocytes/100 WBC (Bld) 43 % 18-42 [facility] MCH Auto (RBC) [Entitic mass ]Ordered By: Ming Childress on 04-02-2023 MCH (RBC) [Entitic mass] 24.5 pg 24.7-34.3 [facility] MCHC Auto (RBC) [Mass/Vol]Or dered By: Ming Childress on 04-02-2023 MCHC (RBC) [Mass/Vol] 31.8 g/dL 32.0-35.0 [facility] MCV Auto (RBC) [Entitic vol] Ordered By: Ming Childress on 04-02-2023 MCV (RBC) [Entitic vol] 77.3 fL 80-100 F [facility] Monocyte distribution width [Entitic volume] in Blood by AutomatedOrdered By: Ming Childress on 04-02-2023 Monocyte distribution width Auto (Bld) [Entitic vol] 18.83 % 0.00-20.00 [facility] Monocytes Auto (Bld) [#/Vol] Ordered By: Ming Childress on 04-02-2023 Monocytes (Bld) [#/Vol] N/A F [facility] Monocytes/100 WBC Auto (Bld) Ordered By: Ming Childress on 04-02-2023 Monocytes/100 WBC (Bld) N/A F [facility] Monocytes/100 WBC Manual cnt (Bld)Ordered By: Ming Childress on 04-02-2023 Monocytes/100 WBC (Bld) 5 % 2-11 F [facility] Neutrophils Auto (Bld) [#/Vo l]Ordered By: Ming Childress on 04-02-2023 Neutrophils (Bld) [#/Vol] N/A [facility] Neutrophils/100 WBC Auto (Bl d)Ordered By: Ming Childress on 04-02-2023 Neutrophils/100 WBC (Bld) N/A [facility] Nitrite Test strip Ql (U)Ord ered By: Ming Childress on 04-02-2023 Nitrite Ql (U) Negative Negative [facility] No Panel InformationOrdered By: Ming Childress on 04-02-2023 Estimated GFR (CKD-EPI) > 60.0 mL/Min [facility] Creatinine Clearance (Chem 97.72 [facility] Nucleated RBC/100 WBC Manual cnt (Bld) [Ratio]Ordered By: Ming Childress on 04-02-2023 Nucleated RBC/100 WBC (Bld) [Ratio] 3 /100{WBC} 0-0 [facility] Nucleated erythrocytes [Pres ence] in Blood by Automated countOrdered By: Ming Childress on 04-02-2023 Nucleated RBC Auto Ql (Bld) N/A [facility] Ovalocyte detectionOrdered B y: Ming Childress on 04-02-2023 Ovalocytes LM Ql (Bld) Slight Fi [facility] Platelet adequacy [Presence] in Blood by Light microscopyOrdered By: Ming Childress on 04-02-2023 Platelets LM Ql (Bld) Increased Normal [facility] Platelet mean volume Auto (B ld) [Entitic vol]Ordered By: Ming Childress on 04-02-2023 Platelet mean volume (Bld) [Entitic vol] 8.1 fL 6.3-10.7 [facility] Platelet morphology finding [Identifier] in BloodOrdered By: Ming Childress on 04-02-2023 Platelet morphology finding Nom (Bld) Normal Normal [facility] Platelets Auto (Bld) [#/Vol] Ordered By: Ming Childress on 04-02-2023 Platelets (Bld) [#/Vol] 492 10*3/uL 150-450 [facility] Poikilocytosis [Presence] in Blood by Light microscopyOrdered By: Ming Childress on 04-02-2023 Poikilocytosis LM Ql (Bld) Slight [facility] Polychromasia [Presence] in Blood by Light microscopyOrdered By: Ming Childress on 04-02-2023 Polychromasia LM Ql (Bld) Moderate [facility] Potassium [Moles/volume] in Serum or PlasmaOrdered By: Ming Childress on 04-02-2023 Potassium [Moles/Vol] 3.7 mmol/L 3.5-5.1 [facility] Protein Auto test strip (U) [Mass/Vol]Ordered By: Ming Childress on 04-02-2023 Protein (U) [Mass/Vol] Negative Negative Fi [facility] RBC Auto (Bld) [#/Vol]Ordere d By: Ming Childress on 04-02-2023 RBC (Bld) [#/Vol] 4.67 10*6/uL 3.60-5.00 [facility] RBC morphologyOrdered By: Carmen Childress on 04-02-2023 RBC morphology finding Nom (Bld) N/A [facility] Segmented neutrophils/100 WB C Manual cnt (Bld)Ordered By: Ming Childress on 04-02-2023 Segmented neutrophils/100 WBC (Bld) 47 % 50-70 [facility] Serum or plasma anion gap de terminationOrdered By: Ming Childress on 04-02-2023 Anion gap [Moles/Vol] 14.2 mmol/L 6.0-15.0 Fi [facility] Smudge cell detectionOrdered By: Ming Childress on 04-02-2023 Smudge cells LM Ql (Bld) Slight [facility] Sodium [Moles/volume] in Ser um or PlasmaOrdered By: Ming Childress on 04-02-2023 Sodium [Moles/Vol] 137 mmol/L 136-145 [facility] Specific gravity Auto test s trip (U) [Rel density]Ordered By: Ming Childress on 04-02-2023 Specific gravity (U) [Rel density] 1.018 1.001-1.030 [facility] Squamous epithelial cells de tection in urine sediment by light microscopyOrdered By: Ming Childress on 04-02-2023 Epithelial cells.squamous LM Ql (Urine sed) 3-4 [HPF] 0-2 [facility] Toxic leukocyte vacuolation detectionOrdered By: Ming Childress on 04-02-2023 Leukocyte toxic vacuoles LM Ql (Bld) Slight [facility] Urea nitrogen [Mass/volume] in Serum or PlasmaOrdered By: Ming Childress on 04-02-2023 Urea nitrogen [Mass/Vol] 9 mg/dL 7-25 [facility] Urine bacteria detection by automated methodOrdered By: Ming Childress on 04-02-2023 Bacteria Auto Ql (U) None seen None Seen [facility] Urine clarity by refractomet ry automatedOrdered By: Ming Childress on 04-02-2023 Clarity Refractometry automated (U) Clear Clear [facility] Urine glucose measurement by automated test strip (mass/volume)Ordered By: Ming Childress on 04-02-2023 Glucose Auto test strip (U) [Mass/Vol] Normal mg/dL Normal [facility] Urine hemoglobin detection b y automated test stripOrdered By: iMng Childress on 04-02-2023 Hemoglobin Auto test strip Ql (U) 3+ Negative [facility] Urine leukocyte esterase det ection by automated test stripOrdered By: Ming Childress on 04-02-2023 Leukocyte esterase Auto test strip Ql (U) 1+ Negative [facility] Urobilinogen Auto test strip (U) [Mass/Vol]Ordered By: Ming Childress on 04-02-2023 Urobilinogen (U) [Mass/Vol] Normal mg/dL Normal [facility] WBC Auto (Bld) [#/Vol]Ordere d By: Ming Childress on 04-02-2023 WBC (Bld) [#/Vol] 6.8 10*3/uL 3.8-11.6 [facility] pH Auto test strip (U)Ordere d By: Ming Childress on 04-02-2023 pH (U) 6.0 [pH] 5.0-9.0 [facility] Alanine aminotransferase [En zymatic activity/volume] in Serum or PlasmaOrdered By: Ming Childress on 03-29-2023 ALT [Catalytic activity/Vol] 14 U/L 7 [facility] Albumin [Mass/volume] in Ser um or Plasma by Bromocresol green (BCG) dye binding methoOrdered By: Ming Childress on 03-29-2023 Albumin BCG dye [Mass/Vol] 4.0 g/dL 3.5-5.7 [facility] Alkaline phosphatase [Enzyma tic activity/volume] in Serum or PlasmaOrdered By: Ming Childress on 03-29-2023 ALP [Catalytic activity/Vol] 61 U/L 34-104 [facility] Aspartate aminotransferase [ Enzymatic activity/volume] in Serum or PlasmaOrdered By: Ming Childress on 03-29-2023 AST [Catalytic activity/Vol] 19 U/L 13-39 [facility] Basic Metabolic Panelon 03-13 Anion gap [Moles/Vol] 12.4 mmol/L Normal 6.0-15.0 [facility] Comment on above: Performed By: #### B MP, LIPASE, HEPATIC #### [facility] [address] [place] [address] [place] Calcium [Mass/Vol] 8.9 mg/dL Normal 8.6-10.3 [facility] Comment on above: Performed By: #### B MP, LIPASE, HEPATIC #### [facility] [address] [place] [address] [place] Chloride [Moles/Vol] 107 mmol/L Normal 98-107 [facility] Comment on above: Performed By: #### B MP, LIPASE, HEPATIC #### [facility] [address] [place] [address] [place] CO2 [Moles/Vol] 22.2 mmol/L Normal 21.0-31.0 [facility] Comment on above: Performed By: #### B MP, LIPASE, HEPATIC #### [facility] [address] Creatinine [Mass/Vol] 0.63 mg/dL Normal 0.60-1.20 [facility] Comment on above: Performed By: #### B MP, LIPASE, HEPATIC #### [facility] [address] [place] [address] [place] Creatinine Clr Calc Pharmacy 134.47 [facility] Comment on above: Performed By: #### B MP, LIPASE, HEPATIC #### [facility] [address] [place] [address] [place] GFR/1.73 sq M.predicted MDRD (S/P/Bld) [Vol rate/Area] mL/min/{1.73_m2} [facility] Comment on above: Performed By: #### B MP, LIPASE, HEPATIC #### [facility] [address] [place] [address] [place] Glucose [Mass/Vol] 90 mg/dL Normal 70-100 [facility] Comment on above: Result Comment: [place] Glucose Reference Range is dependent on time and content of last meal. Glucose of more than 200 mg/dL in a nonstressed, ambulatory subject supports the diagnosis of Diabetes Mellitus. ADA recommended reference range Performed By: #### B MP, LIPASE, HEPATIC #### [facility] [address] [place] [id number] [place] Potassium [Moles/Vol] 3.6 mmol/L Normal 3.5-5.1 [facility] Comment on above: Performed By: #### B MP, LIPASE, HEPATIC #### [facility] [address] Sodium [Moles/Vol] 138 mmol/L Normal 136-145 [facility] Comment on above: Performed By: #### B MP, LIPASE, HEPATIC #### [facility] [address] Urea nitrogen [Mass/Vol] 6 mg/dL Low 7-25 [facility] Comment on above: Performed By: #### B MP, LIPASE, HEPATIC #### [facility] [address] [place] [address] [place] Basophils Auto (Bld) [#/Vol] Ordered By: Ming Childress on 03-29-2023 Basophils (Bld) [#/Vol] 0.1 10*3/uL 0.0-0.2 [facility] Basophils/100 WBC Auto (Bld) Ordered By: Ming Childress on 03-29-2023 Basophils/100 WBC (Bld) 1.3 % . F [facility] Bilirubin Test strip Ql (U)O rdered By: Ming Childress on 03-29-2023 Bilirubin Ql (U) Negative Negative [facility] Bilirubin.direct [Mass/volum e] in Serum or PlasmaOrdered By: Ming Childress on 03-29-2023 Bilirubin.direct [Mass/Vol] 0.10 mg/dL 0.03-0.18 [facility] Bilirubin.total [Mass/volume ] in Serum or PlasmaOrdered By: Ming Childress on 03-29-2023 Bilirubin [Mass/Vol] 0.3 mg/dL 0.3-1.[address] [facility] [address] abdomen pelvis w conon CT abdomen pelvis w con [facility] [place] [address] [place] [address] CT Scan Report Signed Patient: Livia Noyola MR#: [id number] : 1985 Acct:[id number] Age/Sex: 38 / F ADM Date: 03/29/23 Loc: 3T Room: [address] [place] [address] Type: ADM IN Attending Dr: Christi Aquino MD Copies to: DO Christi Hagan MD Ordering Provider: Ming Childress DO Date of Service: 03/29/23 CT/CT abdomen pelvis w con: LLQ pain CT ABDOMEN AND PELVIS WITH CONTRAST COMPARISON: 02/06/2023 CLINICAL DATA: Left lower quadrant pain and nausea. Spiral images were obtained through the abdomen and pelvis following 90 mL of Isovue-300. This CT exam was performed using one or more following dose reduction techniques: Automated exposure control, adjustment of the mA and/or kV according to patient size, or use of iterative reconstruction technique. Limited cuts through the lung bases show minor dependent atelectasis. The gallbladder surgically absent. That may be the etiology of slight biliary prominence. No intrahepatic masses are noted. The spleen, pancreas and adrenal glands are stable. There are symmetric bilateral renal nephrograms, without hydronephrosis. The abdominal aorta is normal caliber. There are small retroperitoneal and mesenteric lymph nodes. No ascites is visualized. There is food debris within the stomach. There are normal caliber small bowel loops. Stool is present along the colon. No appendiceal inflammation is seen. The bony structures are intact. Images through the pelvis show nondilated small bowel. There is mild distal colonic stool. No diverticular disease is noted. There are ovarian follicles however no dominant cysts. The urinary bladder is not well-distended however no obvious abnormalities are seen. Inguinal lymph nodes are again visualized. There is no free fluid. CT/CT abdomen pelvis w con IMPRESSION: NO BOWEL OR URINARY TRACT OBSTRUCTION. NO ACUTE FINDINGS. Impression dictated by: Alesha Tejada M.D.03/29/2023 7:14 AM Dictation Location: [place] [address] Transcribed By: [facility] 03/29/23713 Dictated By: Alesha Tejada MD 03/29/2310 Signed By: 03/29/23713 [facility] Calcium [Mass/volume] in Ser um or PlasmaOrdered By: Ming Childress on 03-29-2023 Calcium [Mass/Vol] 8.9 mg/dL 8.6-10.3 [facility] Carbon dioxide, total [Moles /volume] in Serum or PlasmaOrdered By: Ming Childress on 03-29-2023 CO2 [Moles/Vol] 22.2 mmol/L 21.0-31.0 [facility] Chloride [Moles/volume] in S binu or PlasmaOrdered By: Ming Childress on 03-29-2023 Chloride [Moles/Vol] 107 mmol/L 98-107 [facility] Color Auto (U)Ordered By: Carmen Childress on 03-29-2023 Color (U) Yellow Yellow [facility] Complete Blood Count Auto Di ffon 03-29-2023 Basophils (Bld) [#/Vol] 0.1 10*3/uL Normal 0.0-0.2 [facility] Comment on above: Result Comment: PERF ORMED BY: [place] [address] PATHOLOGIST ED CASE MANAGER FARNAZ ZULETA M.D. Performed By: #### C BC #### [facility] [address] Basophils/100 WBC (Bld) 1.3 % Normal . [facility] Comment on above: Performed By: #### C BC #### [facility] [address] [place] [address] [place] Eosinophils (Bld) [#/Vol] 0.1 10*3/uL Normal 0.0-0.45 [facility] Comment on above: Performed By: #### C BC #### [facility] [address] [place] [address] [place] Eosinophils/100 WBC (Bld) 1.8 % Normal . [facility] Comment on above: Performed By: #### C BC #### [facility] [address] Erythrocyte distribution width (RBC) [Ratio] 15.2 % Normal 11.9-15.3 [facility] Comment on above: Performed By: #### C BC #### [facility] [address] Hematocrit (Bld) [Volume fraction] 32.6 % Low 34.0-46.4 [facility] Comment on above: Performed By: #### C BC #### [address] Hemoglobin (Bld) [Mass/Vol] 10.4 g/dL Low 11.8-15.4 [facility] Comment on above: Performed By: #### C BC #### [address] Lymphocytes (Bld) [#/Vol] 3.2 10*3/uL Normal 1.00-4.8 [facility] Comment on above: Performed By: #### C BC #### [address] Lymphocytes/100 WBC (Bld) 42.8 % Normal . [facility] Comment on above: Performed By: #### C BC #### [address] MCH (RBC) [Entitic mass] 24.1 pg Low 24.7-34.3 [facility] Comment on above: Performed By: #### C BC #### [address] MCV (RBC) [Entitic vol] 75.2 fL Low 80-100 F [facility] Comment on above: Performed By: #### C BC #### [address] Mean Corpuscular HGB Conc 32.0 g/dL Normal 32.0-35.0 [facility] Comment on above: Performed By: #### C BC #### [address] Monocytes (Bld) [#/Vol] 0.6 10*3/uL Normal 0.0-0.8 [facility] Comment on above: Performed By: #### C BC #### [address] [place] [address] [place] Monocytes/100 WBC (Bld) 7.3 % Normal . F [facility] Comment on above: Performed By: #### C BC #### [facility] [address] Neutrophils (Bld) [#/Vol] 3.5 10*3/uL Normal 1.8-7.7 [facility] Comment on above: Performed By: #### C BC #### [facility] [address] Neutrophils/100 WBC (Bld) 46.8 % Normal . [facility] Comment on above: Performed By: #### C BC #### [address] NRBC% 0.1 /100{WBC} Normal 0-0.5 [facility] Comment on above: Performed By: #### C BC #### [address] Platelet mean volume (Bld) [Entitic vol] 8.0 fL Normal 6.3-10.7 [facility] Comment on above: Performed By: #### C BC #### [place] [address] [place] Platelets (Bld) [#/Vol] 396 10*3/uL Normal 150-450 [facility] Comment on above: Performed By: #### C BC #### [place] [address] [place] RBC (Bld) [#/Vol] 4.34 10*6/uL Normal 3.60-5.00 [facility] Comment on above: Performed By: #### C BC #### [place] [address] [place] WBC (Bld) [#/Vol] 7.5 10*3/uL Normal 3.8-11.6 [facility] Comment on above: Performed By: #### C BC #### [place] [address] [place] Creatinine [Mass/volume] in Serum or PlasmaOrdered By: Ming Childress on 03-29-2023 Creatinine [Mass/Vol] 0.63 mg/dL 0.60-1.20 [facility] Eosinophils Auto (Bld) [#/Vo l]Ordered By: Ming Childress on 03-29-2023 Eosinophils (Bld) [#/Vol] 0.1 10*3/uL 0.0-0.45 [facility] Eosinophils/100 WBC Auto (Bl d)Ordered By: Ming Childress on 03-29-2023 Eosinophils/100 WBC (Bld) 1.8 % . [facility] Erythrocyte distribution wid th Auto (RBC) [Ratio]Ordered By: Ming Childress on 03-29-2023 Erythrocyte distribution width (RBC) [Ratio] 15.2 % 11.9-15.3 [facility] Globulin Calc (S) [Mass/Vol] Ordered By: Ming Childress on 03-29-2023 Globulin (S) [Mass/Vol] 2.8 g/dL [facility] Glucose [Mass/volume] in Ser um or PlasmaOrdered By: Ming Childress on 03-29-2023 Glucose [Mass/Vol] 90 mg/dL 70-100 [facility] Comment on above: ADA recommended refe rence rangeRandom Glucose Reference Range is dependent on time and content of last meal. Glucose of more than 200 mg/dL in a nonstressed, ambulatory subject supports the diagnosis of Diabetes Mellitus. HCG ( test) IAbebeto d Ql (U)Ordered By: Ming Childress on 03-29-2023 HCG ( test) Ql (U) Negative [facility] HCG,Urineon 03-29-2023 Beta HCG ( test) Ql (U) Negative Normal [facility] Comment on above: Order Comment: Name Collection Type:: Clean-Voided Midstream Result Comment: PERF ORMED BY: [place] [address] PATHOLOGIST ED CASE MANAGER FARNAZ ZULETA M.D. Performed By: #### H CGQNT #### [facility] [address] [place] [address] [place] Hematocrit Auto (Bld) [Volum e fraction]Ordered By: Ming Arangoarthy on 03-29-2023 Hematocrit (Bld) [Volume fraction] 32.6 % 34.0-46.4 [facility] Hemoglobin [Mass/volume] in BloodOrdered By: Ming Wagnery on 03-29-2023 Hemoglobin (Bld) [Mass/Vol] 10.4 g/dL 11.8-15.4 [facility] Hepatic Panelon 03-29-2023 Albumin [Mass/Vol] 4.0 g/dL Normal 3.5-5.7 [facility] Comment on above: Performed By: #### B MP, LIPASE, HEPATIC #### [facility] [address] Albumin/Globulin [Mass ratio] 1.4 {ratio} Normal [facility] Comment on above: Performed By: #### B MP, LIPASE, HEPATIC #### [facility] [address] ALP [Catalytic activity/Vol] 61 U/L Normal 34-104 [facility] Comment on above: Performed By: #### B MP, LIPASE, HEPATIC #### [facility] [address] ALT [Catalytic activity/Vol] 14 U/L Normal 7-52 [facility] Comment on above: Performed By: #### B MP, LIPASE, HEPATIC #### [facility] [address] AST [Catalytic activity/Vol] 19 U/L Normal 13-39 [facility] Comment on above: Performed By: #### B MP, LIPASE, HEPATIC #### [facility] [address] [place] [address] [place] Bilirubin [Mass/Vol] 0.3 mg/dL Normal 0.3-1.0 [facility] Comment on above: Performed By: #### B MP, LIPASE, HEPATIC #### [facility] [address] [place] [address] [place] Bilirubin,Indirect 0.2 mg/dL Normal [facility] Comment on above: Performed By: #### B MP, LIPASE, HEPATIC #### [facility] [address] Bilirubin.indirect [Mass/Vol] 0.10 mg/dL Normal 0.03-0.18 [facility] Comment on above: Performed By: #### B MP, LIPASE, HEPATIC #### [facility] [address] Globulin (S) [Mass/Vol] 2.8 g/dL Normal F [facility] Comment on above: Performed By: #### B MP, LIPASE, HEPATIC #### [facility] [address] Protein [Mass/Vol] 6.8 g/dL Normal 6.4-8.9 [facility] Comment on above: Performed By: #### B MP, LIPASE, HEPATIC #### [facility] [address] Ketones Auto test strip (U) [Mass/Vol]Ordered By: Ming Childress on 03-29-2023 Ketones (U) [Mass/Vol] Negative Negative [facility] Lactate [Moles/volume] in Se rum or PlasmaOrdered By: Megan Muniz on 03-29-2023 Lactate [Moles/Vol] 0.8 mmol/L 0.5-2.2 [facility] Lactic Acidon 03-29-2023 Lactate [Moles/Vol] 0.8 mmol/L Normal 0.5-2.2 [facility] Comment on above: Result Comment: PERF ORMED BY: [place] [address] PATHOLOGIST ED CASE MANAGER FARNAZ ZULETA M.D. Performed By: #### C BC #### [facility] [address] Leukocytes [#/volume] correc flo for nucleated erythrocytes in Blood by Automated counOrdered By: Ming Childress on 03-29-2023 WBC corrected for nucl RBC Auto (Bld) [#/Vol] 7.5 10*3/uL 3.8-11.6 [facility] Lipaseon 03-29-2023 Lipase [Catalytic activity/Vol] 30.0 U/L Normal 11.0-82.0 [facility] Comment on above: Result Comment: PERF ORMED BY: [place] [address] PATHOLOGIST ED CASE MANAGER FARNAZ ZULETA M.D. Performed By: #### B MP, LIPASE, HEPATIC #### [address] Lipase [Enzymatic activity/v olume] in Serum or PlasmaOrdered By: Ming Childress on 03-29-2023 Lipase [Catalytic activity/Vol] 30.0 U/L 11.0-82.0 [facility] Lymphocytes Auto (Bld) [#/Vo l]Ordered By: Ming Childress on 03-29-2023 Lymphocytes (Bld) [#/Vol] 3.2 10*3/uL 1.00-4.8 [facility] Lymphocytes/100 WBC Auto (Bl d)Ordered By: Ming Childress on 03-29-2023 Lymphocytes/100 WBC (Bld) 42.8 % . [facility] MCH Auto (RBC) [Entitic mass ]Ordered By: Ming Childress on 03-29-2023 MCH (RBC) [Entitic mass] 24.1 pg 24.7-34.3 [facility] MCHC Auto (RBC) [Mass/Vol]Or dered By: Ming Childress on 03-29-2023 MCHC (RBC) [Mass/Vol] 32.0 g/dL 32.0-35.0 [facility] MCV Auto (RBC) [Entitic vol] Ordered By: Ming Childress on 03-29-2023 MCV (RBC) [Entitic vol] 75.2 fL 80-100 F [facility] Monocytes Auto (Bld) [#/Vol] Ordered By: Ming Childress on 03-29-2023 Monocytes (Bld) [#/Vol] 0.6 10*3/uL 0.0-0.8 [facility] Monocytes/100 WBC Auto (Bld) Ordered By: Ming Childress on 03-29-2023 Monocytes/100 WBC (Bld) 7.3 % . F [facility] Neutrophils Auto (Bld) [#/Vo l]Ordered By: Ming Childress on 03-29-2023 Neutrophils (Bld) [#/Vol] 3.5 10*3/uL 1.8-7.7 [facility] Neutrophils/100 WBC Auto (Bl d)Ordered By: Ming Childress on 03-29-2023 Neutrophils/100 WBC (Bld) 46.8 % . [facility] Nitrite Test strip Ql (U)Ord ered By: Ming Childress on 03-29-2023 Nitrite Ql (U) Negative Negative [facility] No Panel InformationOrdered By: Ming Childress on 03-29-2023 Estimated GFR (CKD-EPI) > 60.0 mL/Min [facility] Creatinine Clearance (Chem 134.47 [facility] Nucleated erythrocytes [Pres ence] in Blood by Automated countOrdered By: Ming Childress on 03-29-2023 Nucleated RBC Auto Ql (Bld) 0.1 /100{WBC} 0-0.5 [facility] Platelet mean volume Auto (B ld) [Entitic vol]Ordered By: Ming Childress on 03-29-2023 Platelet mean volume (Bld) [Entitic vol] 8.0 fL 6.3-10.7 [facility] Platelets Auto (Bld) [#/Vol] Ordered By: Ming Childress on 03-29-2023 Platelets (Bld) [#/Vol] 396 10*3/uL 150-450 [facility] Potassium [Moles/volume] in Serum or PlasmaOrdered By: Ming Childress on 03-29-2023 Potassium [Moles/Vol] 3.6 mmol/L 3.5-5.1 [facility] [facility] Protein Auto test strip (U) [Mass/Vol]Ordered By: Ming Childress on 03-29-2023 Protein (U) [Mass/Vol] Negative Negative [facility] Protein [Mass/volume] in Ser um or PlasmaOrdered By: Ming Childress on 03-29-2023 Protein [Mass/Vol] 6.8 g/dL 6.4-8.9 [facility] RBC Auto (Bld) [#/Vol]Ordere d By: Ming Childress on 03-29-2023 RBC (Bld) [#/Vol] 4.34 10*6/uL 3.60-5.00 [facility] Serum or plasma albumin/glob ulin mass ratioOrdered By: Ming Childress on 03-29-2023 Albumin/Globulin [Mass ratio] 1.4 {ratio} [facility] Serum or plasma anion gap de terminationOrdered By: Ming Childress on 03-29-2023 Anion gap [Moles/Vol] 12.4 mmol/L 6.0-15.0 [facility] Serum or plasma non-glucuron idated bilirubin measurement (mass/volume)Ordered By: Ming Childress on 03-29-2023 Bilirubin.indirect [Mass/Vol] 0.2 mg/dL [facility] Sodium [Moles/volume] in Ser um or PlasmaOrdered By: Ming Childress on 03-29-2023 Sodium [Moles/Vol] 138 mmol/L 136-145 [facility] Specific gravity Auto test s trip (U) [Rel density]Ordered By: Ming Childress on 03-29-2023 Specific gravity (U) [Rel density] 1.003 1.001-1.030 [facility] US transvaginalon 03-29-2023 US transvaginal [place] [address] Ultrasound Report Signed Patient: Livia Noyola MR#: [id number] 757 : 1985 Acct:[id number] Age/Sex: 38 / F ADM Date: 03/29/23 Loc: Room: [address] [place] [address] Type: ADM IN Attending Dr: Christi Aquino MD Ordering Provider: Ming Childress DO Date of Service: 03/29/23 US/US transvaginal: r/o L ovarian torsion ([id number]) US/US pelvic complete: PAIN Copies to: DO Christi Hagan MD TRANSABDOMINAL AND TRANSVAGINAL PELVIC ULTRASOUND HISTORY: LEFT pelvic pain FINDINGS: The uterus measures 8.2 x 3.9 x 5.1 cm. No uterine lesion identified. The endometrium has a total combined thickness of 12mm. The RIGHT ovary measures 2.9 x 2.5 x 1.9 cm LEFT ovary measures 3.7 x 2.5 x 1.5 cm Bilateral ovarian blood flow identified. Trace free fluid in cul-de-sac likely physiologic. There is no adnexal mass identified. US/US pelvic complete IMPRESSION: Unremarkable transabdominal and transvaginal pelvic ultrasound Impression dictated by: Davi Figueroa M.D.03/29/2023 8:20 AM Dictation Location: [place] [address] Tech: Brooke Hodge Transcribed By: AMBER 03/29/23819 Dictated By: Davi Figueroa DO 03/29/2316 Signed By: 03/29/23819 Normal [facility] Urea nitrogen [Mass/volume] in Serum or PlasmaOrdered By: Ming Childress on 03-29-2023 Urea nitrogen [Mass/Vol] 6 mg/dL 01-04 [facility] Urinalysison 03-29-2023 Appearance (U) Clear Normal Clear [facility] Comment on above: Order Comment: Name Collection Type:: Clean-Voided Midstream Performed By: #### H CGQNT #### [facility] [address] [place] [id number] [place] Bilirubin,Urine Negative Normal Negative [facility] Comment on above: Order Comment: Name Collection Type:: Clean-Voided Midstream Performed By: #### H CGQNT #### [facility] [address] [place] [address] [place] Color (U) Yellow Normal Yellow [facility] Comment on above: Order Comment: Name Collection Type:: Clean-Voided Midstream Performed By: #### H CGQNT #### [facility] [address] [place] [address] [place] Glucose Ql (U) Normal Normal Normal [facility] Comment on above: Order Comment: Name Collection Type:: Clean-Voided Midstream Performed By: #### H CGQNT #### [address] Ketones Ql (U) Negative Normal Negative [facility] Comment on above: Order Comment: Name Collection Type:: Clean-Voided Midstream Performed By: #### H CGQNT #### [address] Leukocyte esterase Test strip Ql (U) Negative Normal Negative [facility] Comment on above: Order Comment: Name Collection Type:: Clean-Voided Midstream Performed By: #### H CGQNT #### [address] Nitrite,Urine Negative Normal Negative [facility] Comment on above: Order Comment: Name Collection Type:: Clean-Voided Midstream Performed By: #### H CGQNT #### [address] Occult Blood,Urine Negative Normal Negative [facility] Comment on above: Order Comment: Name Collection Type:: Clean-Voided Midstream Performed By: #### H CGQNT #### [address] pH (U) 7.5 [pH] Normal 5.0-9.0 [facility] Comment on above: Order Comment: Name Collection Type:: Clean-Voided Midstream Performed By: #### H CGQNT #### [place] [address] [place] Protein,Urine Negative Normal Negative [facility] Comment on above: Order Comment: Name Collection Type:: Clean-Voided Midstream Performed By: #### H CGQNT #### [place] [address] [place] Specificy [place],Urine 1.003 Normal 1.001-1.030 [facility] Comment on above: Order Comment: Name Collection Type:: Clean-Voided Midstream Performed By: #### H CGQNT #### [address] Urobilinogen,Urine Normal Normal Normal [facility] Comment on above: Order Comment: Name Collection Type:: Clean-Voided Midstream Performed By: #### H CGQNT #### [facility] [address] Urine clarity by refractomet ry automatedOrdered By: Ming Childress on 03-29-2023 Clarity Refractometry automated (U) Clear Clear [facility] Urine glucose measurement by automated test strip (mass/volume)Ordered By: Ming Childress on 03-29-2023 Glucose Auto test strip (U) [Mass/Vol] Normal mg/dL Normal [facility] Urine hemoglobin detection b y automated test stripOrdered By: Ming Childress on 03-29-2023 Hemoglobin Auto test strip Ql (U) Negative Negative [facility] Urine leukocyte esterase det ection by automated test stripOrdered By: Ming Childress on 03-29-2023 Leukocyte esterase Auto test strip Ql (U) Negative Negative [facility] Urobilinogen Auto test strip (U) [Mass/Vol]Ordered By: Ming Childress on 03-29-2023 Urobilinogen (U) [Mass/Vol] Normal mg/dL Normal [facility] WBC Auto (Bld) [#/Vol]Ordere d By: Ming Childress on 03-29-2023 WBC (Bld) [#/Vol] 7.5 10*3/uL 3.8-11.6 [facility] pH Auto test strip (U)Ordere d By: Ming Childress on 03-29-2023 pH (U) 7.5 [pH] 5.0-9.0 [facility] Basic Metabolic Panelon 08-2 Anion gap [Moles/Vol] 11.9 mmol/L Normal 6.0-15.0 [facility] Comment on above: Performed By: #### C BC #### [facility] [address] [place] [address] Calcium [Mass/Vol] 9.2 mg/dL Normal 8.6-10.3 [facility] Comment on above: Performed By: #### C BC #### [facility] [address] [place] [id number] [place] Chloride [Moles/Vol] 107 mmol/L Normal 98-107 [facility] Comment on above: Performed By: #### C BC #### [facility] [address] [place] [address] [place] CO2 [Moles/Vol] 21.5 mmol/L Normal 21.0-31.0 [facility] Comment on above: Performed By: #### C BC #### [facility] [address] [place] [address] [place] Creatinine [Mass/Vol] 0.71 mg/dL Normal 0.60-1.20 [facility] Comment on above: Performed By: #### C BC #### [facility] [address] [place] [address] [place] Creatinine Clr Calc Pharmacy 115.62 [facility] Comment on above: Performed By: #### C BC #### [place] [address] [place] GFR/1.73 sq M.predicted MDRD (S/P/Bld) [Vol rate/Area] mL/min/{1.73_m2} [facility] Comment on above: Performed By: #### C BC #### [facility] [address] Glucose [Mass/Vol] 99 mg/dL Normal 70-100 [facility] Comment on above: Result Comment: [place] Glucose Reference Range is dependent on time and content of last meal. Glucose of more than 200 mg/dL in a nonstressed, ambulatory subject supports the diagnosis of Diabetes Mellitus. ADA recommended reference range Performed By: #### C BC #### [facility] [address] [place] [address] [place] Potassium [Moles/Vol] 3.4 mmol/L Low 3.5-5.1 [facility] Comment on above: Performed By: #### C BC #### [place] [address] [place] Sodium [Moles/Vol] 137 mmol/L Normal 136-145 [facility] Comment on above: Performed By: #### C BC #### [facility] [address] [place] [address] [place] Urea nitrogen [Mass/Vol] 6 mg/dL Low 7-25 [facility] Comment on above: Performed By: #### C BC #### [facility] [address] Bilirubin Test strip Ql (U)O rdered By: Elier Jackson on 02-06-2023 Bilirubin Ql (U) Negative Negative [facility] CT abdomen pelvis w conon CT abdomen pelvis w con [facility] [place] [address] [place] [address] CT Scan Report Signed Patient: Livia Noyola MR#: [id number] 757 : 1985 Acct:[id number] Age/Sex: 38 / F ADM Date: 02/05/23 Loc: ER Room: Type: [facility] ER Attending Dr: Copies to: Elier Jackson DO Ordering Provider: Elier Jackson DO Date of Service: 02/05/23 CT/CT abdomen pelvis w con: LLQ pain CT ABDOMEN AND PELVIS WITH INTRAVENOUS CONTRAST: CLINICAL HISTORY: Left lower quadrant abdominal pain for one day. COMPARISON: CT abdomen and pelvis 04/28/2022 TECHNIQUE: Spiral images were obtained through the abdomen and pelvis following the administration of intravenous contrast. This CT exam was performed using one or more following dose reduction techniques: Automated exposure control, adjustment of the mA and/or kV according to patient size, or use of iterative reconstruction technique. FINDINGS: Lung Bases: [Bibasilar atelectasis.] Organs:Gallbladder has been removed. Liver portal vein pancreas spleen and adrenal glands all appear unremarkable. No enhancing renal mass or hydronephrosis. Abdominal aorta appears normal in caliber.[ GI: Stomach is grossly unremarkable. Small bowel appears nondilated. Appendix is normal. No acute colonic abnormality.[ Pelvis:[Urinary bladder is grossly unremarkable. Uterus is grossly unremarkable. No adnexal mass.] Peritoneum/Retroperi toneum:No free air, free fluid or lymphadenopathy.[ Abd wall/Bones:Abdominal wall demonstrates no acute findings. Osseous structures demonstrate degenerative change.[ CT/CT abdomen pelvis w con IMPRESSION: No acute findings. Impression dictated by: Dennis Betancur Jr., D.O.02/06/2023 11:23 AM Dictation Location: [place] [address] Transcribed By: [facility] 02/06/23 1123 Dictated By: Dennis Betancur Jr, DO 02/06/23 1109 Signed By: 02/06/23 1123 Normal [facility] Color Auto (U)Ordered By: Julian Jackson on 02-06-2023 Color (U) Yellow Yellow [facility] Complete Blood Count Auto Di ffon 02-06-2023 Basophils (Bld) [#/Vol] 0.1 10*3/uL Normal 0.0-0.2 [facility] Comment on above: Result Comment: PERF ORMED BY: [place] [address] PATHOLOGIST ED CASE MANAGER FARNAZ ZULETA M.D. Performed By: #### C BC #### [address] Basophils/100 WBC (Bld) 1.4 % Normal . [facility] Comment on above: Performed By: #### C BC #### [address] Eosinophils (Bld) [#/Vol] 0.1 10*3/uL Normal 0.0-0.45 [facility] Comment on above: Performed By: #### C BC #### [address] Eosinophils/100 WBC (Bld) 1.5 % Normal . [facility] Comment on above: Performed By: #### C BC #### [address] Erythrocyte distribution width (RBC) [Ratio] 15.9 % High 11.9-15.3 [facility] Comment on above: Performed By: #### C BC #### [address] Hematocrit (Bld) [Volume fraction] 37.3 % Normal 34.0-46.4 [facility] Comment on above: Performed By: #### C BC #### [facility] [address] Hemoglobin (Bld) [Mass/Vol] 11.8 g/dL Normal 11.8-15.4 [facility] Comment on above: Performed By: #### C BC #### [facility] [address] Lymphocytes (Bld) [#/Vol] 3.6 10*3/uL Normal 1.00-4.8 [facility] Comment on above: Performed By: #### C BC #### [address] Lymphocytes/100 WBC (Bld) 44.3 % Normal . [facility] Comment on above: Performed By: #### C BC #### [address] MCH (RBC) [Entitic mass] 24.8 pg Normal 24.7-34.3 [facility] Comment on above: Performed By: #### C BC #### [address] MCV (RBC) [Entitic vol] 78.1 fL Low 80-100 F [facility] Comment on above: Performed By: #### C BC #### [address] Mean Corpuscular HGB Conc 31.8 g/dL Low 32.0-35.0 [facility] Comment on above: Performed By: #### C BC #### [address] Monocytes (Bld) [#/Vol] 0.7 10*3/uL Normal 0.0-0.8 [facility] Comment on above: Performed By: #### C BC #### [address] Monocytes/100 WBC (Bld) 17.33 % Normal 0.00-20.00 F [facility] Comment on above: Performed By: #### C BC #### [facility] [address] [place] [address] [place] Monocytes/100 WBC (Bld) 8.4 % Normal . [facility] Comment on above: Performed By: #### C BC #### [facility] [address] Neutrophils (Bld) [#/Vol] 3.6 10*3/uL Normal 1.8-7.7 [facility] Comment on above: Performed By: #### C BC #### [facility] [address] Neutrophils/100 WBC (Bld) 44.4 % Normal . [facility] Comment on above: Performed By: #### C BC #### [facility] [address] NRBC% 0.1 /100{WBC} Normal 0-0.5 [facility] Comment on above: Performed By: #### C BC #### [facility] [address] Platelet mean volume (Bld) [Entitic vol] 8.0 fL Normal 6.3-10.7 [facility] Comment on above: Performed By: #### C BC #### [facility] [address] [place] [address] [place] Platelets (Bld) [#/Vol] 398 10*3/uL Normal 150-450 [facility] Comment on above: Performed By: #### C BC #### [facility] [address] [place] [address] [place] RBC (Bld) [#/Vol] 4.78 10*6/uL Normal 3.60-5.00 [facility] Comment on above: Performed By: #### C BC #### [facility] [address] WBC (Bld) [#/Vol] 8.1 10*3/uL Normal 3.8-11.6 [facility] Comment on above: Performed By: #### C BC #### [place] [id number] [facility] HCG ( test) IA.lazi d Ql (U)Ordered By: Elier Jackson on 02-06-2023 HCG ( test) Ql (U) Negative [facility] HCG,Qualitative Serumon 01-12 HCG,Qualitative Serum Negative Normal [facility] Comment on above: Result Comment: PERF ORMED BY: [place] [address] PATHOLOGIST ED CASE MANAGER FARNAZ ZULETA M.D. Performed By: #### C BC #### [address] HCG,Quantitativeon HCG,Quantitative < 0.60 Normal [facility] Comment on above: Result Comment: Appr oximate Approximate hCG Gestational Age Range (mIU/ml) (weeks) 0.2-1 5-50 1-2 50-500 2-3 100-5,000 3-4 500-10,000 4-5 1,000-50,000 5-6 10,000-100,000 6-8 15,000-200,000 8-12 10,000-100,000 PERFORMED BY: [address] [place] [address] PATHOLOGIST ED CASE MANAGER FARNAZ ZULETA M.D. Performed By: #### H CGQNT #### [address] HCG,Urineon 02-06-2023 Beta HCG ( test) Ql (U) Negative Normal [facility] Comment on above: Order Comment: Name Collection Type:: Clean-Voided Midstream Result Comment: PERF ORMED BY: [place] [address] PATHOLOGIST ED CASE MANAGER FARNAZ ZULETA M.D. Performed By: #### U A, UHCG #### [facility] [address] [place], [place] [id number] [facility] Hepatic Panelon 02-06-2023 Albumin [Mass/Vol] 4.2 g/dL Normal 3.5-5.7 [facility] Comment on above: Performed By: #### C BC #### [facility] [address] Albumin/Globulin [Mass ratio] 1.4 {ratio} Normal [facility] Comment on above: Performed By: #### C BC #### [facility] [address] ALP [Catalytic activity/Vol] 52 U/L Normal 34-104 [facility] Comment on above: Performed By: #### C BC #### [facility] [address] [place] [address] ALT [Catalytic activity/Vol] 13 U/L Normal 7-52 [facility] Comment on above: Performed By: #### C BC #### [address] AST [Catalytic activity/Vol] 12 U/L Low 13-39 [facility] Comment on above: Performed By: #### C BC #### [address] Bilirubin [Mass/Vol] 0.3 mg/dL Normal 0.3-1.0 [facility] Comment on above: Performed By: #### C BC #### [address] Bilirubin,Indirect 0.2 mg/dL Normal [facility] Comment on above: Performed By: #### C BC #### [address] Bilirubin.indirect [Mass/Vol] 0.10 mg/dL Normal 0.03-0.18 [facility] Comment on above: Performed By: #### C BC #### [facility] [address] [place] [address] Globulin (S) [Mass/Vol] 3.0 g/dL Normal F [facility] Comment on above: Performed By: #### C BC #### [address] Protein [Mass/Vol] 7.2 g/dL Normal 6.4-8.9 [facility] Comment on above: Performed By: #### C BC #### [address] Ketones Auto test strip (U) [Mass/Vol]Ordered By: Elier Jackson on 02-06-2023 Ketones (U) [Mass/Vol] Negative Negative Fi [facility] Lipaseon 02-06-2023 Lipase [Catalytic activity/Vol] 40.0 U/L Normal 11.0-82.0 [facility] Comment on above: Result Comment: PERF ORMED BY: [place] [address] PATHOLOGIST ED CASE MANAGER FARNAZ ZULETA M.D. Performed By: #### C BC #### [address] Nitrite Test strip Ql (U)Ord ered By: Elier Jackson on 02-06-2023 Nitrite Ql (U) Negative Negative [facility] Protein Auto test strip (U) [Mass/Vol]Ordered By: Elier Jackson on 02-06-2023 Protein (U) [Mass/Vol] Negative Negative [facility] Specific gravity Auto test s trip (U) [Rel density]Ordered By: Elier Jackson on 02-06-2023 Specific gravity (U) [Rel density] 1.007 1.001-1.030 [facility] US pelvic completeon 023 US pelvic complete [facility] [place] [address] [place] [address] Ultrasound Report Signed Patient: Livia Noyola MR#: [id number] 757 : 1985 Acct:[id number] Age/Sex: 38 / F ADM Date: 02/05/23 Loc: ER Room: Type: [facility] ER Attending Dr: Ordering Provider: Elier Jackson DO Date of Service: 02/06/23 US/US pelvic complete: adnexa pain ([id number]) US/US transvaginal: . Copies to: Elier M Tupa, DO Pelvic ultrasound. Reason for exam: Left lower quadrant pain. Nausea. Comparison: CT abdomen and pelvis performed earlier today. Technique: Transabdominal imaging of the uterus and ovaries was performed. Transvaginal imaging of the uterus and ovaries was also obtained. Additional spectral Doppler analysis of the ovaries was also obtained. Findings: Uterus measures 8.1 x 3.9 x 4.8 cm. No fibroid. In the region measures 11 mm without focal abnormality. No free fluid is seen. Right ovary measures 4.1 x 2.0 x 3.1 cm. The left ovary measures 2.5 x 0.9 x 1.7 cm. No adnexal mass or cyst. Normal arterial and venous Doppler waveforms. US/US transvaginal Impression: Unremarkable pelvic ultrasound. Impression dictated by: Dennis Betancur Jr., D.O.02/06/2023 11:25 AM Dictation Location: [place] [address] Tech: Jada Jon Transcribed By: [facility] 02/06/23 1125 Dictated By: Dennis Betancur Jr, DO 02/06/23 1123 Signed By: 02/06/23 1125 Normal [facility] Urinalysison 02-06-2023 Appearance (U) Clear Normal Clear [facility] Comment on above: Order Comment: Name Collection Type:: Clean-Voided Midstream Performed By: #### U A, UHCG #### [facility] [address] [place] [address] [place] Bilirubin,Urine Negative Normal Negative [facility] Comment on above: Order Comment: Name Collection Type:: Clean-Voided Midstream Performed By: #### U A, UHCG #### [facility] [address] [place] [id number] [place] Color (U) Yellow Normal Yellow [facility] Comment on above: Order Comment: Name Collection Type:: Clean-Voided Midstream Performed By: #### U A, UHCG #### [facility] [address] [place] [id number] [place] Glucose Ql (U) Normal Normal Normal [facility] Comment on above: Order Comment: Name Collection Type:: Clean-Voided Midstream Performed By: #### U A, UHCG #### [facility] [address] [place] [address] [place] Ketones Ql (U) Negative Normal Negative [facility] Comment on above: Order Comment: Name Collection Type:: Clean-Voided Midstream Performed By: #### U A, UHCG #### [address] Leukocyte esterase Test strip Ql (U) Negative Normal Negative [facility] Comment on above: Order Comment: Name Collection Type:: Clean-Voided Midstream Performed By: #### U A, UHCG #### [place] [address] [place] Nitrite,Urine Negative Normal Negative [facility] Comment on above: Order Comment: Name Collection Type:: Clean-Voided Midstream Performed By: #### U A, UHCG #### [address] Occult Blood,Urine Negative Normal Negative [facility] Comment on above: Order Comment: Name Collection Type:: Clean-Voided Midstream Performed By: #### U A, UHCG #### [facility] [address] [place] [address] [place] pH (U) 7.0 [pH] Normal 5.0-9.0 [facility] Comment on above: Order Comment: Name Collection Type:: Clean-Voided Midstream Performed By: #### U A, UHCG #### [facility] [address] [place] [address] [place] Protein,Urine Negative Normal Negative [facility] Comment on above: Order Comment: Name Collection Type:: Clean-Voided Midstream Performed By: #### U A, UHCG #### [facility] [address] [place] [address] [place] Specificy [place],Urine 1.007 Normal 1.001-1.030 [facility] Comment on above: Order Comment: Name Collection Type:: Clean-Voided Midstream Performed By: #### U A, UHCG #### [facility] [address] [place] [address] Urobilinogen,Urine Normal Normal Normal [facility] Comment on above: Order Comment: Name Collection Type:: Clean-Voided Midstream Performed By: #### [facility] #### [facility] [address] [place] [id number] [facility] Urine clarity by refractomet ry automatedOrdered By: Elier Jackson on 02-06-2023 Clarity Refractometry automated (U) Clear Clear [facility] Urine glucose measurement by automated test strip (mass/volume)Ordered By: Elier Jackson on 02-06-2023 Glucose Auto test strip (U) [Mass/Vol] Normal mg/dL Normal [facility] Urine hemoglobin detection b y automated test stripOrdered By: Elier Jackson on 02-06-2023 Hemoglobin Auto test strip Ql (U) Negative Negative [facility] Urine leukocyte esterase det ection by automated test stripOrdered By: Elier Jackson on 02-06-2023 Leukocyte esterase Auto test strip Ql (U) Negative Negative [facility] Urobilinogen Auto test strip (U) [Mass/Vol]Ordered By: Elier Jackson on 02-06-2023 Urobilinogen (U) [Mass/Vol] Normal mg/dL Normal [facility] pH Auto test strip (U)Ordere d By: Elier Jackson on 02-06-2023 pH (U) 7.0 [pH] 5.0-9.0 [facility] Alanine aminotransferase [En zymatic activity/volume] in Serum or PlasmaOrdered By: Elier Jackson on 02-05-2023 ALT [Catalytic activity/Vol] 13 U/L 7-52 [facility] Albumin [Mass/volume] in Ser um or Plasma by Bromocresol green (BCG) dye binding methoOrdered By: Elier Jackson on 02-05-2023 Albumin BCG dye [Mass/Vol] 4.2 g/dL 3.5-5.7 [facility] Alkaline phosphatase [Enzyma tic activity/volume] in Serum or PlasmaOrdered By: Elier Jackson on 02-05-2023 ALP [Catalytic activity/Vol] 52 U/L 34-104 [facility] Aspartate aminotransferase [ Enzymatic activity/volume] in Serum or PlasmaOrdered By: Elier Jackson on 02-05-2023 AST [Catalytic activity/Vol] 12 U/L 13-39 [facility] Basophils Auto (Bld) [#/Vol] Ordered By: Elier Jackson on 02-05-2023 Basophils (Bld) [#/Vol] 0.1 10*3/uL 0.0-0.2 [facility] Basophils/100 WBC Auto (Bld) Ordered By: Elier Jackson on 02-05-2023 Basophils/100 WBC (Bld) 1.4 % . [facility] Bilirubin.direct [Mass/volum e] in Serum or PlasmaOrdered By: Elier Jackson on 02-05-2023 Bilirubin.direct [Mass/Vol] 0.10 mg/dL 0.03-0.18 [facility] Bilirubin.total [Mass/volume ] in Serum or PlasmaOrdered By: Elier Jackson on 02-05-2023 Bilirubin [Mass/Vol] 0.3 mg/dL 0.3-1.0 [facility] Calcium [Mass/volume] in Ser um or PlasmaOrdered By: Elier Jackson on 02-05-2023 Calcium [Mass/Vol] 9.2 mg/dL 8.6-10.3 [facility] Carbon dioxide, total [Moles /volume] in Serum or PlasmaOrdered By: Elier Jackson on 02-05-2023 CO2 [Moles/Vol] 21.5 mmol/L 21.0-31.0 [facility] Chloride [Moles/volume] in S binu or PlasmaOrdered By: Elier Jackson on 02-05-2023 Chloride [Moles/Vol] 107 mmol/L 98-107 [facility] Choriogonadotropin.beta subu nit [Units/volume] in Serum or PlasmaOrdered By: Elier Jackson on 02-05-2023 HCG.beta subunit Qn m[IU]/mL [facility] Comment on above: Approximate Approxim ate hCG Gestational Age Range (mIU/ml) (weeks)0.2-1 5-50 1-2 50-500 2-3 100-5,000 3-4 500-10,000 4-5 1,000-50,000 5-6 10,000-100,000 6-8 15,000-200,000 8-12 10,000-100,000 HCG.beta subunit Qn Negative [facility] Creatinine [Mass/volume] in Serum or PlasmaOrdered By: Elier Jacskon on 02-05-2023 Creatinine [Mass/Vol] 0.71 mg/dL 0.60-1.20 [facility] Eosinophils Auto (Bld) [#/Vo l]Ordered By: Elier Jackson on 02-05-2023 Eosinophils (Bld) [#/Vol] 0.1 10*3/uL 0.0-0.45 [facility] Eosinophils/100 WBC Auto (Bl d)Ordered By: Elier Jackson on 02-05-2023 Eosinophils/100 WBC (Bld) 1.5 % . [facility] Erythrocyte distribution wid th Auto (RBC) [Ratio]Ordered By: Elier Jackson on 02-05-2023 Erythrocyte distribution width (RBC) [Ratio] 15.9 % 11.9-15.3 [facility] Globulin Calc (S) [Mass/Vol] Ordered By: Elier Jackson on 02-05-2023 Globulin (S) [Mass/Vol] 3.0 g/dL [facility] Glucose [Mass/volume] in Ser um or PlasmaOrdered By: Elier Jackson on 02-05-2023 Glucose [Mass/Vol] 99 mg/dL 70-100 [facility] Comment on above: ADA recommended refe rence rangeRandom Glucose Reference Range is dependent on time and content of last meal. Glucose of more than 200 mg/dL in a nonstressed, ambulatory subject supports the diagnosis of Diabetes Mellitus. Hematocrit Auto (Bld) [Volum e fraction]Ordered By: Elier Jackson on 02-05-2023 Hematocrit (Bld) [Volume fraction] 37.3 % 34.0-46.4 [facility] Hemoglobin [Mass/volume] in BloodOrdered By: Elier Jackson 02-05-2023 Hemoglobin (Bld) [Mass/Vol] 11.8 g/dL 11.8-15.4 [facility] Leukocytes [#/volume] correc flo for nucleated erythrocytes in Blood by Automated counOrdered By: Elier Jackson on 02-05-2023 WBC corrected for nucl RBC Auto (Bld) [#/Vol] 8.1 10*3/uL 3.8-11.6 [facility] Lipase [Enzymatic activity/v olume] in Serum or PlasmaOrdered By: Elier Jackson on 02-05-2023 Lipase [Catalytic activity/Vol] 40.0 U/L 11.0-82.0 [facility] Lymphocytes Auto (Bld) [#/Vo l]Ordered By: Elier Jackson on 02-05-2023 Lymphocytes (Bld) [#/Vol] 3.6 10*3/uL 1.00-4.8 [facility] Lymphocytes/100 WBC Auto (Bl d)Ordered By: Elier Jackson on 02-05-2023 Lymphocytes/100 WBC (Bld) 44.3 % . [facility] MCH Auto (RBC) [Entitic mass ]Ordered By: Elier Jackson on 02-05-2023 MCH (RBC) [Entitic mass] 24.8 pg 24.7-34.3 [facility] MCHC Auto (RBC) [Mass/Vol]Or dered By: Elier Jackson on 02-05-2023 MCHC (RBC) [Mass/Vol] 31.8 g/dL 32.0-35.0 [facility] MCV Auto (RBC) [Entitic vol] Ordered By: Elier Jackson on 02-05-2023 MCV (RBC) [Entitic vol] 78.1 fL 80-100 [facility] Monocyte distribution width [Entitic volume] in Blood by AutomatedOrdered By: Elier Jackson on 02-05-2023 Monocyte distribution width Auto (Bld) [Entitic vol] 17.33 % 0.00-20.00 [facility] Monocytes Auto (Bld) [#/Vol] Ordered By: Elier Jackson on 02-05-2023 Monocytes (Bld) [#/Vol] 0.7 10*3/uL 0.0-0.8 [facility] Monocytes/100 WBC Auto (Bld) Ordered By: Elier Jackson on 02-05-2023 Monocytes/100 WBC (Bld) 8.4 % . [facility] Neutrophils Auto (Bld) [#/Vo l]Ordered By: Elier Jackson on 02-05-2023 Neutrophils (Bld) [#/Vol] 3.6 10*3/uL 1.8-7.7 [facility] Neutrophils/100 WBC Auto (Bl d)Ordered By: Elier Jackson on 02-05-2023 Neutrophils/100 WBC (Bld) 44.4 % . [facility] No Panel InformationOrdered By: Elier Jackson on 02-05-2023 Estimated GFR (CKD-EPI) > 60.0 mL/Min [facility] Creatinine Clearance (Chem 115.62 [facility] Nucleated erythrocytes [Pres ence] in Blood by Automated countOrdered By: Elier Jackson on 02-05-2023 Nucleated RBC Auto Ql (Bld) 0.1 /100{WBC} 0-0.5 [facility] Platelet mean volume Auto (B ld) [Entitic vol]Ordered By: Elier Jackson on 02-05-2023 Platelet mean volume (Bld) [Entitic vol] 8.0 fL 6.3-10.7 [facility] Platelets Auto (Bld) [#/Vol] Ordered By: Elier Jackson on 02-05-2023 Platelets (Bld) [#/Vol] 398 10*3/uL 150-450 [facility] Potassium [Moles/volume] in Serum or PlasmaOrdered By: Elier Jackson on 02-05-2023 Potassium [Moles/Vol] 3.4 mmol/L 3.5-5.1 [facility] Protein [Mass/volume] in Ser um or PlasmaOrdered By: Elier Jackson on 02-05-2023 Protein [Mass/Vol] 7.2 g/dL 6.4-8.9 [facility] RBC Auto (Bld) [#/Vol]Ordere d By: Elier Jackson on 02-05-2023 RBC (Bld) [#/Vol] 4.78 10*6/uL 3.60-5.00 [facility] Serum or plasma albumin/glob ulin mass ratioOrdered By: Elier Jackson on 02-05-2023 Albumin/Globulin [Mass ratio] 1.4 {ratio} [facility] Serum or plasma anion gap de terminationOrdered By: Elier Jackson on 02-05-2023 Anion gap [Moles/Vol] 11.9 mmol/L 6.0-15.0 [facility] Serum or plasma non-glucuron idated bilirubin measurement (mass/volume)Ordered By: Elier Jackson on 02-05-2023 Bilirubin.indirect [Mass/Vol] 0.2 mg/dL [facility] Sodium [Moles/volume] in Ser um or PlasmaOrdered By: Elier Jackson on 02-05-2023 Sodium [Moles/Vol] 137 mmol/L 136-145 [facility] Urea nitrogen [Mass/volume] in Serum or PlasmaOrdered By: Elier Jackson on 02-05-2023 Urea nitrogen [Mass/Vol] 6 mg/dL 7-25 [facility] WBC Auto (Bld) [#/Vol]Ordere d By: Elier Jackson on 02-05-2023 WBC (Bld) [#/Vol] 8.1 10*3/uL 3.8-11.6 [facility] GENITAL CULTUREon 08-01-2022 Genital Culture, Routine Final report Abnormal [facility] Comment on above: Result Comment: Spec imen stability note: A swab transport (ie., ESwab, Amies agar gel) received by the lab more than 24 hours after collection may result in reduced recovery of Neisseria gonorrhoeae (GC). (This is informational only and may not apply to this specimen.) Performed By: #### C XGENIT #### [facility] [address] [place] [address] Dr. Rod Ramirez Result 1 Comment Abnormal [facility] Comment on above: Result Comment: Beta hemolytic Streptococcus, group B Light growth Penicillin and ampicillin are drugs of choice for treatment of beta-hemolytic streptococcal infections. Susceptibility testing of penicillins and other beta-lactam agents approved by the FDA for treatment of beta-hemolytic streptococcal infections need not be performed routinely because nonsusceptible isolates are extremely rare in any beta-hemolytic streptococcus and have not been reported for Streptococcus pyogenes (group A). (CLSI) Performed By: #### C XGENIT #### [facility] [address] [place] [address] Dr. Rod Ramirez Result 2 Comment Normal [facility] Comment on above: Result Comment: Rout ine genital deborah. Light growth Performed By: #### C XGENIT #### [facility] [address] [place] [address] Dr. Rod Ramirez CBC AUTO DIFFon 07-28-2022 BASO # 0.0 103/ul Normal 0.0-0.1 [facility] Comment on above: Performed By: #### C BC #### [facility] [address] [place] [address] Dr. Rod Ramirez Basophils/100 WBC (Bld) 0.4 % Normal 0.2-2.0 [facility] Comment on above: Performed By: #### C BC #### [facility] [address] [place] [address] Dr. Rod Ramirez EO # 0.1 103/ul Normal 0.0-0.7 [facility] Comment on above: Performed By: #### C BC #### [facility] [address] [place] [address] Dr. Rod Ramirez Eosinophils/100 WBC (Bld) 1.5 % Normal 0.9-7.0 [facility] Comment on above: Performed By: #### C BC #### [facility] [address] [place] [address] Dr. Rod Ramirez Erythrocyte distribution width (RBC) [Ratio] 12.9 % Normal 11.0-15.0 [facility] Comment on above: Performed By: #### C BC #### [facility] [address] [place] [address] Dr. Rod Ramirez Hematocrit (Bld) [Volume fraction] 40.9 % Normal 36.0-48.0 [facility] Comment on above: Performed By: #### C BC #### [facility] [address] [place] [address] Dr. Rod Ramirez Hemoglobin (Bld) [Mass/Vol] 13.7 g/dL Normal 12.0-16.0 [facility] Comment on above: Performed By: #### C BC #### [facility] [address] [place] [address] Dr. Rod Ramirez IG # 0.02 10e3/ul Normal 0.00-0.03 [facility] Comment on above: Performed By: #### C BC #### [facility] [address] [place] [address] Dr. Rod Ramirez IG % 0.3 % Normal 0.0-0.5 [facility] Comment on above: Performed By: #### C BC #### [facility] [address] [place] [address] Dr. Rod Ramirez LYMPH # 1.6 103/ul Normal 1.2-3.8 [facility] Comment on above: Performed By: #### C BC #### [facility] [address] [place] [address] Dr. Rod Ramirez Lymphocytes/100 WBC (Bld) 23.6 % Normal 20.5-60.0 [facility] Comment on above: Performed By: #### C BC #### [facility] [address] [place] [address] Dr. Rod Ramirez MANUAL DIFF REQ NO Normal [facility] Comment on above: Performed By: #### C BC #### [facility] [address] [place] [address] Dr. Rod Ramirez MCH (RBC) [Entitic mass] 27.7 pg Normal 26.7-34.0 [facility] Comment on above: Performed By: #### C BC #### [facility] [address] [place] [address] Dr. Rod Ramirez MCHC (RBC) [Mass/Vol] 33.5 g/dL Normal 29.9-35.2 [facility] Comment on above: Performed By: #### C BC #### [facility] [address] [place] [address] Dr. Rod Ramirez MCV (RBC) [Entitic vol] 82.6 fL Normal 81.0-99.0 [facility] Comment on above: Performed By: #### C BC #### [facility] [address] [place] [address] Dr. Rod Ramirez MONO # 0.4 103/ul Normal 0.3-0.8 [facility] Comment on above: Performed By: #### C BC #### [facility] [address] [place] [address] Dr. Rod Ramirez Monocytes/100 WBC (Bld) 6.4 % Normal 1.7-12.0 [facility] Comment on above: Performed By: #### C BC #### [facility] [address] [place] [address] Dr. Rod Ramirez NEUT # 4.6 103/ul Normal 1.4-6.5 [facility] Comment on above: Performed By: #### C BC #### [facility] [address] [place] [address] Dr. Rod Ramirez Neutrophils/100 WBC (Bld) 67.8 % Normal 43.0-75.0 [facility] Comment on above: Performed By: #### C BC #### [facility] [address] [place] [address] Dr. Rod Ramirez Platelet mean volume (Bld) [Entitic vol] 9.4 fL Critically low 9.5-13.5 [facility] Comment on above: Performed By: #### C BC #### [facility] [address] [place] [address] Dr. Rod Ramirez PLT 439 103/ul Normal 150-450 [facility] Comment on above: Performed By: #### C BC #### [facility] [address] [place] [address] Dr. Rod Ramirez RBC 4.95 106/ul Normal 4.20-5.40 [facility] Comment on above: Performed By: #### C BC #### [facility] [address] [place] [address] Dr. Rod Ramirez WBC 6.7 103/ul Normal 4.0-11.0 [facility] Comment on above: Performed By: #### C BC #### [facility] [address] [place] [address] Dr. Rod Ramirez PREG HCG QUALon 07-28-2022 , QUAL Negative Normal NEGATIVE [facility] Comment on above: Performed By: #### P REG #### [facility] [address] [address] [address] Rod Ramirez PROF CHEM 8 (BAS METB)on Anion gap [Moles/Vol] 15.5 mmol/L Normal [facility] Comment on above: Performed By: #### B MP #### [facility] [address] [address] [address] Rod Ramirez Calcium [Mass/Vol] 9.0 mg/dL Normal 8.5-10.1 [facility] Comment on above: Performed By: #### B MP #### [facility] [address] [place] [address] Dr. Rod Ramirez Chloride [Moles/Vol] 103 mmol/L Normal 98-107 [facility] Comment on above: Performed By: #### B MP #### [facility] [address] [address] [address] Rod Ramirez CO2 [Moles/Vol] 23.9 mmol/L Normal 21.0-32.0 [facility] Comment on above: Performed By: #### B MP #### [facility] [address] [place] [address] Dr. Rod Ramirez Creatinine [Mass/Vol] 0.79 mg/dL Normal 0.55-1.02 [facility] Comment on above: Performed By: #### B MP #### [facility] [address] [address] [address] Rod Ramirez EGFR-AF PARAGUAYAN >60 Normal >=60 [facility] Comment on above: Performed By: #### B MP #### [facility] [address] [place] [address] Dr. Rod Ramirez EGFR-NON AF PARAGUAYAN >60 Normal >=60 [facility] Comment on above: Performed By: #### B MP #### [facility] [address] [address] [address] Rod Ramirez Glucose [Mass/Vol] 108 mg/dL Critically high 74-106 [facility] Comment on above: Performed By: #### B MP #### [facility] [address] [address] [address] Rod Ramirez Potassium [Moles/Vol] 3.4 mmol/L Critically low 3.5-5.1 [facility] Comment on above: Performed By: #### B MP #### [facility] [address] [address] [address] Rod Ramirez Sodium [Moles/Vol] 139 mmol/L Normal 136-145 [facility] Comment on above: Performed By: #### B MP #### [facility] [address] [address] [address] Rod Ramirez Urea nitrogen [Mass/Vol] 7.0 mg/dL Normal 7.0-18.0 [facility] Comment on above: Performed By: #### B MP #### [facility] [address] [address] [address] Rod Ramirez Urea nitrogen/Creatinine [Mass ratio] 8.9 mg/mg Normal [facility] Comment on above: Performed By: #### B MP #### [facility] [address] [address] [address] Rod Ramirez US PELVIS TRANSVAGon 023 US PELVIS TRANSVAG EXAMINATION: US PELVIS TRANSVAG HISTORY: Cyst of left ovary COMPARISON: No relevant comparison available. TECHNIQUE: Transabdominal and transvaginal sonographic examination. FINDINGS: UTERUS: Normal size and appearance. Uterus size: 7.7 x 4.5 x 3.5 cm ENDOMETRIUM: Normal homogeneous appearance. Endometrial thickness: 6 mm RIGHT OVARY: Normal size and appearance. Duplex Doppler demonstrates normal waveform and flow; resistive index 0.4. Ovary size: 2.3 x 2.3 x 2.0 cm LEFT OVARY: Contains a 2.1 cm benign-appearing cyst. Duplex Doppler demonstrates normal waveform and flow; resistive index 0.6. Ovary size: 4.0 x 2.9 x 1.8 cm CUL-DE-SAC: Unremarkable. No significant free fluid. BLADDER: Unremarkable. OTHER: None. IMPRESSION: 1. Left ovary contains a 2.1 cm benign-appearing cyst versus dominant follicle, which may be contributing to patient's symptoms. No ovarian torsion. Electronically authenticated by: AUBREY BURKS Date: 2022-07-28 07:46 Normal [facility] WET PREPon 07-28-2022 CLUE CELLS NONE SEEN Normal NONE SEEN [facility] Comment on above: Performed By: #### W P #### [facility] [address] [address] [address] Rod Ramirez FUNGAL ELEMENTS NONE SEEN Normal NONE SEEN The [facility] Comment on above: Performed By: #### W P #### [facility] [address] [address] [address] Rod Ramirez RBC -WET PREP RARE Abnormal NONE SEEN [facility] Comment on above: Performed By: #### W P #### [facility] [address] [address] [address] Rod Ramirez TRICHOMONAS NONE SEEN Normal NONE SEEN [facility] Comment on above: Performed By: #### W P #### [facility] [address] [address] [address] Rod Ramirez WBC- WET PREP RARE Abnormal NONE SEEN [facility] Comment on above: Performed By: #### W P #### [facility] [address] [address] [address] Rod Ramirez WET PREP BACTERIA NONE SEEN Normal NONE SEEN The [facility] Comment on above: Performed By: #### W P #### [facility] [address] [address] [address] Rod Morales 04-30-2022 FRIDA Telephone (HEMASA) LIVIA NOYOLA ([id number]) 1985 F Date Time Provider Department 04/30/22 GIL NI During your visit today, we recorded the following information about you: Tabby Steele Ma 04/30/2022 2:25 PM Signed CMP if needed. Tabby Steele Ma Allergies As of Date: 04/30/2022 Noted Allergy Reaction MORPHINE 06/20/2018 14 - Other: See Comments Comments: Spasms Date Reviewed: 04/09/2022 Reviewed by: Gloria Rivera RN - Fully Assessed Reason for Visit: Lab Orders [1688] Primary Visit Diagnosis:Iron deficiency anemia due to chronic blood loss [D50.0] Order(s):COMP METABOLIC PANEL [SQCMP] Order #: [id number] FUTURE Prescriptions as of 05/03/2022 - ALPRAZolam (XANAX) 0.25 mg tablet TAKE 1 TABLET BY MOUTH EVERY 8 TO 12 HOURS NEEDED FOR ANXIETY - citalopram (CELEXA) 20 mg tablet Take 20 mg by mouth once daily. - diphenhydrAMINE (BENADRYL) 25 mg capsule Take 25 mg by mouth every 6 hours as needed. - Multivitamins-Iron tab Take 1 tablet by mouth once daily. 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] 10/27/2020 Encounter Status:Closed by GIL NI on 05/03/22 Normal [facility] Anisocytosis LM Ql (Bld)Orde red By: Yevgeniy Cabrera on 04-28-2022 Anisocytosis Ql (Bld) Marked [facility] Automated erythrocytes count in urine sediment (number/area)Ordered By: Yevgeniy Cabrera on 04-28-2022 RBC Auto (Urine sed) [#/Area] None seen [HPF] 0-4 [facility] Automated leukocytes count i n urine sediment (number/area)Ordered By: Yevgeniy Cabrera on 04-28-2022 WBC Auto (Urine sed) [#/Area] 3-4 [HPF] 0-4 [facility] Basophils Auto (Bld) [#/Vol] Ordered By: Yevgeniy Cabrera on 04-28-2022 Basophils (Bld) [#/Vol] 0.1 10*3/uL 0.0-0.2 [facility] Basophils/100 WBC Auto (Bld) Ordered By: Yevgeniy Cabrera on 04-28-2022 Basophils/100 WBC (Bld) 1.0 % . [facility] Bilirubin Test strip Ql (U)O rdered By: Yevgeniy Cabrera on 04-28-2022 Bilirubin Ql (U) Negative Negative [facility] Body fluid albumin measureme nt (mass/volume)Ordered By: Yevgeniy Cabrera on 04-28-2022 Albumin (Body fld) [Mass/Vol] 3.8 g/dL 3.2-5.5 [facility] Color Auto (U)Ordered By: Marcus Cabrera on 04-28-2022 Color (U) Yellow Yellow [facility] Creatinine and Glomerular fi ltration rate.predicted panel (S/P/Bld)Ordered By: Yevgeniy Cabrera on 04-28-2022 Creatinine [Mass/Vol] 0.62 mg/dL 0.44-1.03 [facility] Eosinophils Auto (Bld) [#/Vo l]Ordered By: Yevgeniy Cabrera on 04-28-2022 Eosinophils (Bld) [#/Vol] 0.1 10*3/uL 0.0-0.45 [facility] Eosinophils/100 WBC Auto (Bl d)Ordered By: Yevgeniy Cabrera on 04-28-2022 Eosinophils/100 WBC (Bld) 1.0 % . [facility] Erythrocyte distribution wid th Auto (RBC) [Ratio]Ordered By: Yevgeniy Cabrera on 04-28-2022 Erythrocyte distribution width (RBC) [Ratio] 27.1 % 11.9-15.3 [facility] Estimated glomerular filtrat ion rate (GFR) non- AmericanOrdered By: Yevgeniy Cabrera on 04-28-2022 GFR/1.73 sq M.predicted among non-blacks MDRD (S/P/Bld) [Vol rate/Area] > 60 mL/Min [facility] Globulin Calc (S) [Mass/Vol] Ordered By: Yevgeniy Cabrera on 04-28-2022 Globulin (S) [Mass/Vol] 3.1 g/dL [facility] HCG ( test) IA.rapi d Ql (U)Ordered By: Yevgeniy Cabrera on 04-28-2022 HCG ( test) Ql (U) Negative [facility] Hematocrit Auto (Bld) [Volum e fraction]Ordered By: Yevgeniy Cabrera on 04-28-2022 Hematocrit (Bld) [Volume fraction] 39.4 % 34.0-46.4 [facility] Hemoglobin [Mass/volume] in BloodOrdered By: Yevgeniy Cabrera on 04-28-2022 Hemoglobin (Bld) [Mass/Vol] 12.3 g/dL 11.8-15.4 [facility] Hypochromia LM Ql (Bld)Order ed By: Yevgeniy Cabrera on 04-28-2022 Hypochromia Ql (Bld) Slight [facility] Ketones Auto test strip (U) [Mass/Vol]Ordered By: Yevgeniy Cabrera on 04-28-2022 Ketones (U) [Mass/Vol] Negative Negative [facility] - Hematology and Cell countsOrdered By: Yevgeniy Cabrera on 04-28-2022 Nucleated RBC/100 WBC (Bld) [Ratio] 0.0 % 0-0.5 [facility] - UrinalysisOrder ed By: Yevgeniy Cabrera on 04-28-2022 Hyaline casts LM Ql (Urine sed) None seen [LPF] 0-8 [facility] Leukocytes [#/volume] in Blo od by Automated countOrdered By: Yevgeniy Cabrera on 04-28-2022 WBC (Bld) [#/Vol] 7.9 10*3/uL 4.5-11.0 [facility] Lymphocytes Auto (Bld) [#/Vo l]Ordered By: Yevgeniy Cabrera on 04-28-2022 Lymphocytes (Bld) [#/Vol] 2.3 10*3/uL 1.00-4.8 [facility] Lymphocytes/100 WBC Auto (Bl d)Ordered By: Yevgeniy Cabrera on 04-28-2022 Lymphocytes/100 WBC (Bld) 28.9 % . [facility] MCH Auto (RBC) [Entitic mass ]Ordered By: Yevgeniy Cabrera on 04-28-2022 MCH (RBC) [Entitic mass] 23.3 pg 24.7-34.3 [facility] MCHC Auto (RBC) [Mass/Vol]Or dered By: Yevgeniy Cabrera on 04-28-2022 MCHC (RBC) [Mass/Vol] 31.3 g/dL 32.0-35.0 [facility] MCV Auto (RBC) [Entitic vol] Ordered By: Yevgeniy Cabrera on 04-28-2022 MCV (RBC) [Entitic vol] 74.5 fL 80-100 [facility] Monocytes Auto (Bld) [#/Vol] Ordered By: Yevgeniy Cabrera on 04-28-2022 Monocytes (Bld) [#/Vol] 0.4 10*3/uL 0.0-0.8 [facility] Monocytes/100 WBC Auto (Bld) Ordered By: Yevgeniy Cabrera on 04-28-2022 Monocytes/100 WBC (Bld) 4.5 % . [facility] Neutrophils Auto (Bld) [#/Vo l]Ordered By: Yevgeniy Cabrera on 04-28-2022 Neutrophils (Bld) [#/Vol] 5.1 10*3/uL 1.8-7.7 [facility] Neutrophils/100 WBC Auto (Bl d)Ordered By: Yevgeniy Cabrera on 04-28-2022 Neutrophils/100 WBC (Bld) 64.6 % . [facility] Nitrite Test strip Ql (U)Ord ered By: Yevgeniy Cabrera on 04-28-2022 Nitrite Ql (U) Negative Negative [facility] No Panel InformationOrdered By: Yevgeniy Cabrera on 04-28-2022 Estimated GFR () > 60 mL/Min [facility] Comment on above: GFR estimated refere nce range: According to KDOQI guidelines, <60 ml/min/1.73m2 is sufficient to diagnose a patient with chronic kidney disease. Pharmacy Creatinine Clearance (Chem 132.36 [facility] Slides for Pathologist Review Ordered path review [facility] Ovalocyte detectionOrdered B y: Yevgeniy Cabrera on 04-28-2022 Ovalocytes LM Ql (Bld) [facility] Platelet adequacy [Presence] in Blood by Light microscopyOrdered By: Yevgeniy Cabrera on 04-28-2022 Platelets LM Ql (Bld) Normal Normal [facility] Platelet mean volume Auto (B ld) [Entitic vol]Ordered By: Yevgeniy Cabrera on 04-28-2022 Platelet mean volume (Bld) [Entitic vol] 7.4 fL 6.3-10.7 [facility] Platelet morphology finding [Identifier] in BloodOrdered By: Yevgeniy Cabrera on 04-28-2022 Platelet morphology finding Nom (Bld) Normal Normal [facility] Platelets Auto (Bld) [#/Vol] Ordered By: Yevgeniy Cabrera on 04-28-2022 Platelets (Bld) [#/Vol] 329 10*3/uL 150-450 [facility] Poikilocytosis [Presence] in Blood by Light microscopyOrdered By: Yevgeniy Cabrera on 04-28-2022 Poikilocytosis LM Ql (Bld) Moderate [facility] Polychromasia [Presence] in Blood by Light microscopyOrdered By: Yevgeniy Cabrera on 04-28-2022 Polychromasia LM Ql (Bld) Slight [facility] Protein Auto test strip (U) [Mass/Vol]Ordered By: Yevgeniy Cabrera on 04-28-2022 Protein (U) [Mass/Vol] Negative Negative [facility] Protein [Mass/volume] in Ser um or PlasmaOrdered By: Yevgeniy Cabrera on 04-28-2022 Protein [Mass/Vol] 6.9 g/dL 6.1-7.9 [facility] RBC Auto (Bld) [#/Vol]Ordere d By: Yevgeniy Cabrera on 04-28-2022 RBC (Bld) [#/Vol] 5.29 10*6/uL 3.60-5.00 [facility] RBC morphologyOrdered By: Marcus Cabrera on 04-28-2022 RBC morphology finding Nom (Bld) N/A [facility] Serum or plasma alanine syed otransferase measurement without P-5'-P (enzymatic activiOrdered By: Yevgeniy Cabrera on 04-28-2022 ALT No additional P-5'-P [Catalytic activity/Vol] 43 U/L 10-60 [facility] Serum or plasma albumin/glob ulin mass ratioOrdered By: Yevgeniy Cabrera on 04-28-2022 Albumin/Globulin [Mass ratio] 1.2 {ratio} [facility] Serum or plasma alkaline zeeshan sphatase measurement (enzymatic activity/volume)Ordered By: Yevgeniy Cabrera on 04-28-2022 ALP [Catalytic activity/Vol] 65 U/L 32-92 [facility] Serum or plasma anion gap de terminationOrdered By: Yevgeniy Cabrera on 04-28-2022 Anion gap [Moles/Vol] 14.6 mmol/L 6.0-15.0 [facility] Serum or plasma aspartate am inotransferase measurement (enzymatic activity/volume)Ordered By: Yevgeniy Cabrera on 04-28-2022 AST [Catalytic activity/Vol] 26 U/L 10-42 [facility] Serum or plasma calcium donaldo urement (mass/volume)Ordered By: Yevgeniy Cabrera on 04-28-2022 Calcium [Mass/Vol] 9.3 mg/dL 8.2-10.2 [facility] Serum or plasma chloride claudia surement (moles/volume)Ordered By: Yevgeniy Cabrera on 04-28-2022 Chloride [Moles/Vol] 105 mmol/L 95-114 [facility] Serum or plasma glucose donaldo urement (mass/volume)Ordered By: Yevgeniy Cabrera on 04-28-2022 Glucose [Mass/Vol] 112 mg/dL 70-100 [facility] Comment on above: ADA recommended refe rence rangeRandom Glucose Reference Range is dependent on time and content of last meal. Glucose of more than 200 mg/dL in a nonstressed, ambulatory subject supports the diagnosis of Diabetes Mellitus. Serum or plasma potassium me asurement (moles/volume)Ordered By: Yevgeniy Cabrera on 04-28-2022 Potassium [Moles/Vol] 3.7 mmol/L 3.5-5.1 [facility] Serum or plasma sodium measu rement (moles/volume)Ordered By: Yevgeniy Cabrera on 04-28-2022 Sodium [Moles/Vol] 137 mmol/L 136-146 [facility] Serum or plasma total biliru bin measurement (mass/volume)Ordered By: Yevgeniy Cabrera on 04-28-2022 Bilirubin [Mass/Vol] 0.5 mg/dL 0.3-1.2 [facility] Serum or plasma total carbon dioxide measurement (moles/volume)Ordered By: Yevgeniy Cabrera on 04-28-2022 CO2 [Moles/Vol] 21.1 mmol/L 22.0-30.0 [facility] Serum or plasma urea nitroge n measurement (mass/volume)Ordered By: Yevgeniy Cabrera on 04-28-2022 Urea nitrogen [Mass/Vol] 5 mg/dL 9-23 [facility] Specific gravity Auto test s trip (U) [Rel density]Ordered By: Yevgeniy Cabrera on 04-28-2022 Specific gravity (U) [Rel density] 1.005 1.001-1.030 [facility] Squamous epithelial cells de tection in urine sediment by light microscopyOrdered By: Yevgeniy Cabrera on 04-28-2022 Epithelial cells.squamous LM Ql (Urine sed) 0-1 [HPF] 0-2 [facility] Teardrop cell detectionOrder ed By: Yevgeniy Cabrera on 04-28-2022 Dacrocytes LM Ql (Bld) [facility]light [facility] Urine bacteria detection by automated methodOrdered By: Yevgeniy Cabrera on 04-28-2022 Bacteria Auto Ql (U) None seen None Seen [facility] Urine clarity by refractomet ry automatedOrdered By: Yevgeniy Cabrera on 04-28-2022 Clarity Refractometry automated (U) Cloudy Clear [facility] Urine glucose measurement by automated test strip (mass/volume)Ordered By: Yevgeniy Cabrera on 04-28-2022 Glucose Auto test strip (U) [Mass/Vol] Normal mg/dL Normal [facility] Urine hemoglobin detection b y automated test stripOrdered By: Yevgeniy Cabrera on 04-28-2022 Hemoglobin Auto test strip Ql (U) Negative Negative [facility] Urine leukocyte esterase det ection by automated test stripOrdered By: Yevgeniy Cabrera on 04-28-2022 Leukocyte esterase Auto test strip Ql (U) 1+ Negative [facility] Urobilinogen Auto test strip (U) [Mass/Vol]Ordered By: Yevgeniy Cabrera on 04-28-2022 Urobilinogen (U) [Mass/Vol] Normal mg/dL Normal [facility] pH Auto test strip (U)Ordere d By: Yevgeniy Cabrera on 04-28-2022 pH (U) 6.5 [pH] 5.0-9.0 [facility] ALLIED HEALTHon 04-09-2022 ALLIED HEALTH HNO ID: [id number] Author: Stephenie Suh, 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 Service: ? Author Type: 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 Type: Allied Health Filed: 04/09/2022 2:23 PM Note Text: ART THERAPY NOTE SERVICE DATE: 04/09/2022 SERVICE TIME: 1:30 Referred By: self Reason for Referral: Introduction to art therapy services Session Type: Initial Time Spent (minutes): 30 Goals: Coping Through Diversion Interventions: Response Before After Mood Anxiety Pain Scale: 0 = No pain/anxiety 10 = Worst possible pain/anxiety Response: Patient's Verbal Response: Positive Family Present: No Outcome: Goals: Met Follow Up: Will Follow Up as Able COMMENTS: Patient was introduced to art therapy services and given packet of mandalas for mindfulness at home. Patient indicated interest in art making for her next infusion date. Will follow up then. SIGNATURE: Stephenie Suh, 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 PATIENT NAME: Livia Noyola DATE: April 09, 2022 TIME: 2:21 PM PAGER/CONTACT #: Angela [facility] Andrew 03-19-2022 FRIDA Telephone (NCCAP) LIVIA NOYOLA ([id number]) 1985 F Date Time Provider Department 03/19/22 GIL NI During your visit today, we recorded the following information about you: Corbin Carlosemmy 03/19/2022 2:56 PM Signed Patient missed her scheduled Iron infusion today. Call placed to patient to get her rescheduled. No answer, left detailed message that I rescheduled another Venofer for her on the as DR wanted 3 weekly infusions. Corbin Mane Allergies As of Date: 03/19/2022 Noted Allergy Reaction MORPHINE 06/20/2018 14 - Other: See Comments Comments: Spasms Date Reviewed: 03/10/2022 Reviewed by: Gil Ni APRN.FLASH WELDER - Fully Assessed Reason for Visit: No Show [1558] Prescriptions as of 03/19/2022 - ALPRAZolam (XANAX) 0.25 mg tablet TAKE 1 TABLET BY MOUTH EVERY 8 TO 12 HOURS NEEDED FOR ANXIETY - citalopram (CELEXA) 20 mg tablet Take 20 mg by mouth once daily. - diphenhydrAMINE (BENADRYL) 25 mg capsule Take 25 mg by mouth every 6 hours as needed. - Multivitamins-Iron tab Take 1 tablet by mouth once daily. 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 Allergies As of Date: 03/19/2022 Noted Allergy Reaction MORPHINE 06/20/2018 14 - Other: See Comments Comments: Spasms Date Reviewed: 03/10/2022 Reviewed by: Gil Ni APRN.[facility] - Fully Assessed Reason for Visit: Benefits Investigation [8469] Prescriptions as of 03/19/2022 - ALPRAZolam (XANAX) 0.25 mg tablet TAKE 1 TABLET BY MOUTH EVERY 8 TO 12 HOURS NEEDED FOR ANXIETY - citalopram (CELEXA) 20 mg tablet Take 20 mg by mouth once daily. - diphenhydrAMINE (BENADRYL) 25 mg capsule Take 25 mg by mouth every 6 hours as needed. - Multivitamins-Iron tab Take 1 tablet by mouth once daily. 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 No psychosocial assessment is indicated. MARINA Narvaez-Debbie Allergies As of Date: 03/15/2022 Noted Allergy Reaction MORPHINE 06/20/2018 14 - Other: See Comments Comments: Spasms Date Reviewed: 03/10/2022 Reviewed by: Gil Ni APRN.[employer] - Fully Assessed Reason for Visit: Social Work Services [507] Prescriptions as of 03/15/2022 - ALPRAZolam (XANAX) 0.25 mg tablet TAKE 1 TABLET BY MOUTH EVERY 8 TO 12 HOURS NEEDED FOR ANXIETY - citalopram (CELEXA) 20 mg tablet Take 20 mg by mouth once daily. - diphenhydrAMINE (BENADRYL) 25 mg capsule Take 25 mg by mouth every 6 hours as needed. - Multivitamins-Iron tab Take 1 tablet by mouth once daily. 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] 10/27/2020 Encounter Status:Closed by SHARON SAAVEDRA on 03/15/22 Normal [facility] CBC W Auto Differential pane l (Bld)on 03-10-2022 Basophils (Bld) [#/Vol] 0.05 10*3/uL Normal <0.11 [facility] Comment on above: Order Comment: Speci men Type: BLOOD SPECIMEN Ordering Facility: [facility] Address: [address] [place] [address] Performed By: #### 5 7021-8 #### [facility] CLIA [id number] [address] [place] [address] Basophils/100 WBC (Bld) 0.8 % Normal C [facility] Comment on above: Order Comment: Speci men Type: BLOOD SPECIMEN Ordering Facility: [facility] Address: [address] [place] [address] Performed By: #### 5 7021-8 #### [facility] CLIA [id number] [address] [place] [address] 28770 Differential cell count method Nom (Bld) Auto Normal [facility] Comment on above: Order Comment: Speci men Type: BLOOD SPECIMEN Ordering Facility: [facility] Address: [address] [place] [address] Performed By: #### 5 7021-8 #### [facility] CLIA [id number] [address] [place] [address] 65432 Eosinophils (Bld) [#/Vol] 0.15 10*3/uL Normal <0.46 [facility] Comment on above: Order Comment: Speci men Type: BLOOD SPECIMEN Ordering Facility: [facility] Address: [address] [address] Performed By: #### 5 7021-8 #### [facility] CLIA [id number] [address] [place] [address] Eosinophils/100 WBC (Bld) 2.3 % Normal [facility] Comment on above: Order Comment: Speci men Type: BLOOD SPECIMEN Ordering Facility: [facility] Address: [address] [place] [address] Performed By: #### 5 7021-8 #### [facility] CLIA [id number] [address] [place] [address] Erythrocyte distribution width (RBC) [Ratio] 17.4 % High 11.5-15.0 [facility] Comment on above: Order Comment: Speci men Type: BLOOD SPECIMEN Ordering Facility: [facility] Address: [address] [place] [address] Performed By: #### 5 7021-8 #### [facility] CLIA [id number] [address] [place] [address] 87947 Hematocrit (Bld) [Volume fraction] 29.4 % Low 36.0-46.0 [facility] Comment on above: Order Comment: Speci men Type: BLOOD SPECIMEN Ordering Facility: [facility] Address: [address] [place] [address] Performed By: #### 5 7021-8 #### [facility] CLIA [id number] [address] [place] [address] Hemoglobin (Bld) [Mass/Vol] 8.5 g/dL Low 11.5-15.5 [facility] Comment on above: Order Comment: Speci men Type: BLOOD SPECIMEN Ordering Facility: [facility] Address: [address] [place] [address] Performed By: #### 5 7021-8 #### [facility] CLIA [id number] [address] [place] [address] IMMATURE GRAN % 0.3 % Normal [facility] Comment on above: Order Comment: Speci men Type: BLOOD SPECIMEN Ordering Facility: [facility] Address: [address] [place] [address] Performed By: #### 5 7021-8 #### [facility] CLIA [id number] [address] [place] [address] IMMATURE GRAN ABS <0.03 Normal <0.10 [facility] Comment on above: Order Comment: Speci men Type: BLOOD SPECIMEN Ordering Facility: [facility] Address: [address] [place] [address] Performed By: #### 5 7021-8 #### [facility] CLIA [id number] [address] [place] [address] 28821 Lymphocytes (Bld) [#/Vol] 3.62 10*3/uL Normal 1.00-4.00 [facility] Comment on above: Order Comment: Speci men Type: BLOOD SPECIMEN Ordering Facility: [facility] Address: [address] [place] [address] Performed By: #### 5 7021-8 #### [facility] CLIA [id number] [address] [place] [address] 75101 Lymphocytes/100 WBC (Bld) 54.8 % Normal [facility] Comment on above: Order Comment: Speci men Type: BLOOD SPECIMEN Ordering Facility: [facility] Address: [address] [place], [place] [address] Performed By: #### 5 7021-8 #### [facility] CLIA [id number] [address] [place] [address] 62655 MCH (RBC) [Entitic mass] 20.3 pg Low 26.0-34.0 [facility] Comment on above: Order Comment: Speci men Type: BLOOD SPECIMEN Ordering Facility: [facility] Address: [address] [place] [address] Performed By: #### 5 7021-8 #### [facility] CLIA [id number] [address] [place] [address] MCHC (RBC) [Mass/Vol] 28.9 g/dL Low 30.5-36.0 [facility] Comment on above: Order Comment: Speci men Type: BLOOD SPECIMEN Ordering Facility: [facility] Address: [address] [place] [address] Performed By: #### 5 7021-8 #### [facility] CLIA [id number] [address] [place] [address] 04483 MCV (RBC) [Entitic vol] 70.3 fL Low 80.0-100.0 C [facility] Comment on above: Order Comment: Speci men Type: BLOOD SPECIMEN Ordering Facility: [facility] Address: [address] [place] [address] Performed By: #### 5 7021-8 #### [facility] CLIA [id number] [address] [place] [address] 43461 Monocytes (Bld) [#/Vol] 0.38 10*3/uL Normal <0.87 [facility] Comment on above: Order Comment: Speci men Type: BLOOD SPECIMEN Ordering Facility: [facility] Address: [address] [place] [address] Performed By: #### 5 7021-8 #### [facility] CLIA [id number] [address] [place] [address] 55353 Monocytes/100 WBC (Bld) 5.7 % Normal C [facility] Comment on above: Order Comment: Speci men Type: BLOOD SPECIMEN Ordering Facility: [facility] Address: [address] [place] [address] Performed By: #### 5 7021-8 #### [facility] CLIA [id number] [address] [place] [address] 82848 Neutrophils (Bld) [#/Vol] 2.39 10*3/uL Normal 1.45-7.50 [facility] Comment on above: Order Comment: Speci men Type: BLOOD SPECIMEN Ordering Facility: [facility] Address: [address] [address] Performed By: #### 5 7021-8 #### [facility] CLIA [id number] [address] [place] [address] 23727 Neutrophils/100 WBC (Bld) 36.1 % Normal [facility] Comment on above: Order Comment: Speci men Type: BLOOD SPECIMEN Ordering Facility: [facility] Address: [address] [place] [address] Performed By: #### 5 7021-8 #### [facility] CLIA [id number] [address] [place] [address] 55321 Nucleated RBC (Bld) [#/Vol] 10*3/uL Normal <0.01 [facility] Comment on above: Order Comment: Speci men Type: BLOOD SPECIMEN Ordering Facility: [facility] Address: [address] [place] [address] Performed By: #### 5 7021-8 #### [facility] CLIA [id number] [address] [place] [address] 24615 Nucleated RBC/100 WBC (Bld) [Ratio] 0.0 /100 WBC Normal [facility] Comment on above: Order Comment: Speci men Type: BLOOD SPECIMEN Ordering Facility: [facility] Address: [address] [place] [address] Performed By: #### 5 7021-8 #### [facility] CLIA [id number] [address] [place] [address] 03876 Platelet mean volume (Bld) [Entitic vol] 8.8 fL Low 9.0-12.7 [facility] Comment on above: Order Comment: Speci men Type: BLOOD SPECIMEN Ordering Facility: [facility] Address: [address] [place], [place] [address] Performed By: #### 5 7021-8 #### [facility] CLIA [id number] [address] [place] [address] 19369 Platelets (Bld) [#/Vol] 419 10*3/uL High 150-400 [facility] Comment on above: Order Comment: Speci men Type: BLOOD SPECIMEN Ordering Facility: [facility] Address: [address] [place] [address] Performed By: #### 5 7021-8 #### [facility] CLIA [id number] [address] [place] [address] 41168 RBC (Bld) [#/Vol] 4.18 10*6/uL Normal 3.90-5.20 [facility] Comment on above: Order Comment: Speci men Type: BLOOD SPECIMEN Ordering Facility: [facility] Address: [address] [place] [address] Performed By: #### 5 7021-8 #### [facility] CLIA [id number] [address] [place] [address] 98546 WBC (Bld) [#/Vol] 6.61 10*3/uL Normal 3.70-11.00 [facility] Comment on above: Order Comment: Speci men Type: BLOOD SPECIMEN Ordering Facility: [facility] Address: [address] [place] [address] Performed By: #### 5 7021-8 #### [facility] CLIA [id number] [address] [place] [address] 71509 CNOVSPon 03-10-2022 CNOVSP Visit (SP) Office (HEMASA) LIVIA NOYOLA ([id number]) 1985 F Date Time Provider Department 03/10/22 2:00 PM GIL NI During your visit today, we recorded the following information about you: Temperature Pulse Respiration Blood pressure 97.9 degrees 95/minute 16/minute 130/75 Weight Height 83.4 kg 1.651 m Gil Ni APRN.CNP 03/10/2022 2:25 PM Signed NAME: Livia Noyola NO.: [id number] DATE OF SERVICE: March 10, 2022 (Elements copied from Dr. Grupo Reid note dated October 27, 2020, have been reviewed and updated where appropriate, and all reflect current assessment and medical decision making during today's encounter, March 10, 2022) Referring Provider: Dr. Jennifer Duran Additional Clinicians involved in Livia Noyola's care: CC: Iron deficiency anemia ASSESSMENT: 37 yo with poor oral iron absorption and a history of heavy uterine bleeding and subsequent iron deficiency. She has failed oral iron replacement. She has microcytic indices MCV 75, compensatory elevation of Platelets, with markedly elevated TIBC, decreased iron and Ferritin. PLAN: 1. Iron infusion, Venofer 300 mg, Weekly x3 doses. 2. Follow up in 8 weeks repeat CBC. TREATMENT TO DATE: 2. 1. HPI: Updated Visit, March 10, 2022: Livia Noyola returns for follow-up. She recently saw her PCP, Dr. Duran, and was found to have abnormal labs including a low hemoglobin and low iron studies. She continues to have heavy monthly menses lasting on average 6 days. She denies any other signs of blood loss. Her biggest complaint is fatigue. 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 She works 7 PM to 7 AM. Initial Visit, October 27, 2020: Livia Noyola presents today Hematology and Oncology evaluation. 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 In addition to this oral iron makes her extremely nauseated and she is having difficulty staying on it. She is a prior history of endometriosis and heavy uterine bleeding with subsequent iron deficiency. Recent laboratories from [facility] October 04, 2020 show hemoglobin of 11.6 but microcytic indices with an MCV of 75.3. Platelets show a compensatory increase of 452 and RDW is widened at 16.5%. Her corresponding iron studies show ferritin of 4.6 TIBC which is elevated at 465 and iron saturation of 6%. Chemistries demonstrate no clinically significant abnormalities. She has mild fatigue but is otherwise without significant complaints. She lives with her and stepson but has no children of her own. This does seem to affect her emotionally and I have recommended that she consider talking to her employee assistance program for help. REVIEW OF SYSTEMS Per HPI and otherwise negative by full review of organ systems. ECOG PERFORMANCE STATUS: 0 PHYSICAL EXAMINATION: Vitals: BP 130/75 Pulse 95 Temp (Src) 97.9 (Temporal) Resp 16 Ht 5' 5 (1.65m) Wt 183 lb 12.8 oz (83.4kg) SpO2 100% LMP 06/17/2018 BMI 30.59 kg/(m2). Body surface area is 1.96 meters squared. Exam limited to gross visualization where appropriate due to COVID-19. Gen.: This is an age-appropriate patient in no acute distress. Head: Appears atraumatic with no visible lesions. Eyes: Pupils equally round and reactive to light, extraocular muscles are intact. Neck: Supple. Mouth: Mucous membranes appeared to be moist. Respiratory: Appears to be respiring comfortably. Neurologic: Nonfocal to gross visualization. Alert and oriented ?3. Psychiatric: No evidence of inappropriate anxiety or depression. Skin: Visible areas of skin without rash, lesions, wounds or petechiae. ALLERGIES: ALLERGIES Allergen Reactions Morphine Other: See Comments Spasms MEDICATIONS: ALPRAZolam (XANAX) 0.25 mg tablet TAKE 1 TABLET BY MOUTH EVERY 8 TO 12 HOURS NEEDED FOR ANXIETY atenolol (TENORMIN) 25 mg tablet citalopram (CELEXA) 20 mg tablet Take 20 mg by mouth once daily. diphenhydrAMINE (BENADRYL) 25 mg capsule Take 25 mg by mouth every 6 hours as needed. Multivitamins-Iron tab Take 1 tablet by mouth once daily. ibuprofen (MOTRIN) 600 mg tablet Take 1 tablet by mouth every 6 hours. 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 PAST MEDICAL HISTORY Diagnosis Date Anemia 2020 Endometriosis Fibroid Iron deficiency anemia due to chronic (more content not included)... Normal [facility] Comprehensive metabolic 2000 panelon 03-10-2022 Albumin [Mass/Vol] 4.0 g/dL Normal 3.9-4.9 [facility] Comment on above: Order Comment: Speci men Type: BLOOD SPECIMEN Ordering Facility: [facility] Address: [address] [place] [address] Performed By: #### 2 4323-8 #### [facility] CLIA [id number] [address] [place] [address] ALP [Catalytic activity/Vol] 55 U/L Normal 34-123 [facility] Comment on above: Order Comment: Speci men Type: BLOOD SPECIMEN Ordering Facility: [facility] Address: [address] [place] [address] Performed By: #### 2 4323-8 #### [facility] CLIA [id number] [address] [place] [address] ALT [Catalytic activity/Vol] 12 U/L Normal 7-38 [facility] Comment on above: Order Comment: Speci men Type: BLOOD SPECIMEN Ordering Facility: [facility] Address: [address] [place] [address] Performed By: #### 2 4323-8 #### [facility] CLIA [id number] [address] [place] [address] Anion gap [Moles/Vol] 9 mmol/L Normal 9-18 [facility] Comment on above: Order Comment: Speci men Type: BLOOD SPECIMEN Ordering Facility: [facility] Address: [address] [place] [address] Performed By: #### 2 4323-8 #### [facility] CLIA [id number] [address] [place] [address] AST [Catalytic activity/Vol] 14 U/L Normal 13-35 [facility] Comment on above: Order Comment: Speci men Type: BLOOD SPECIMEN Ordering Facility: [facility] Address: [address] Performed By: #### 2 4323-8 #### [facility] CLIA [id number] [address] [place] [address] Bilirubin [Mass/Vol] 0.3 mg/dL Normal 0.2-1.3 [facility] Comment on above: Order Comment: Speci men Type: BLOOD SPECIMEN Ordering Facility: [facility] Address: [address] [place], [place] [address] Performed By: #### 2 4323-8 #### [facility] CLIA [id number] [address] [place] [address] Calcium [Mass/Vol] 8.8 mg/dL Normal 8.5-10.2 [facility] Comment on above: Order Comment: Speci men Type: BLOOD SPECIMEN Ordering Facility: [facility] Address: [address] [place], [place] [address] Performed By: #### 2 4323-8 #### [facility] CLIA [id number] [address] [place] [address] Chloride [Moles/Vol] 105 mmol/L Normal 97-105 [facility] Comment on above: Order Comment: Speci men Type: BLOOD SPECIMEN Ordering Facility: [facility] Address: [address] Performed By: #### 2 4323-8 #### [facility] CLIA [id number] [address] [place] [address] CO2 [Moles/Vol] 24 mmol/L Normal 22-30 [facility] Comment on above: Order Comment: Speci men Type: BLOOD SPECIMEN Ordering Facility: [facility] Address: [address] [place], [place] [address] Performed By: #### 2 4323-8 #### [facility] CLIA [id number] [address] [place] [address] Creatinine [Mass/Vol] 0.65 mg/dL Normal 0.58-0.96 [facility] Comment on above: Order Comment: Roselyn conway Type: BLOOD SPECIMEN Ordering Facility: [facility] Address: [address] [place], [place] [id number] Performed By: #### 2 4323-8 #### [facility] CLIA [id number] [address] [place] [address] ESTIMATED GLOMERULAR FILTRATION RATE 118 mL/min/1.73m??? Normal >=60 [facility] Comment on above: Order Comment: Roselyn conway Type: BLOOD SPECIMEN Ordering Facility: [facility] Address: [address] [place] [address] Result Comment: Shelley mated Glomerular Filtration Rate (eGFR) is calculated using the 2020 CKD-EPI creatinine equation. This equation utilizes serum creatinine, sex, and age as parameters. The creatinine assay has traceable calibration to isotope dilution-mass spectrometry. Refer to KDIGO guidelines for clinical interpretation. In patients with unstable renal function, e.g. those with acute kidney injury, the eGFR may not accurately reflect actual GFR. Performed By: #### 2 4323-8 #### [facility] CLIA [id number] [address] [place] [address] Glucose [Mass/Vol] 109 mg/dL High 74-99 [facility] Comment on above: Order Comment: Roselyn conway Type: BLOOD SPECIMEN Ordering Facility: [facility] Address: [address] [place] [address] Result Comment: The [place] Diabetes Association (ADA) provides guidance for cutoff values for fasting glucose and random glucose. The ADA defines fasting as no caloric intake for at least 8 hours. Fasting plasma glucose results between 100 to 125 mg/dL indicate increased risk for diabetes (prediabetes). Fasting plasma glucose results greater than or equal to 126 mg/dL meet the criteria for diagnosis of diabetes. In the absence of unequivocal hyperglycemia, results should be confirmed by repeat testing. In a patient with classic symptoms of hyperglycemia or hyperglycemic crisis, random plasma glucose results greater than or equal to 200 mg/dL meet the criteria for diagnosis of diabetes. Reference: Standards of Medical Care in Diabetes 2016, [place] Diabetes Association. Diabetes Care. 2016.39(Suppl 1). Performed By: #### 2 4323-8 #### [facility] CLIA [id number] [address] [place] [address] Potassium [Moles/Vol] 3.4 mmol/L Low 3.7-5.1 [facility] Comment on above: Order Comment: Speci men Type: BLOOD SPECIMEN Ordering Facility: [facility] Address: [address] [place] [address] Performed By: #### 2 4323-8 #### [facility] CLIA [id number] [address] [place] [address] Protein [Mass/Vol] 6.5 g/dL Normal 6.3-8.0 [facility] Comment on above: Order Comment: Speci men Type: BLOOD SPECIMEN Ordering Facility: [facility] Address: [address] [place] [address] Performed By: #### 2 4323-8 #### [facility] CLIA [id number] [address] [place] [address] Sodium [Moles/Vol] 138 mmol/L Normal 136-144 [facility] Comment on above: Order Comment: Speci men Type: BLOOD SPECIMEN Ordering Facility: [facility] Address: [address] [place] [address] Performed By: #### 2 4323-8 #### [facility] CLIA [id number] [address] [place] [address] Urea nitrogen [Mass/Vol] 8 mg/dL Normal 7-21 [facility] Comment on above: Order Comment: Speci men Type: BLOOD SPECIMEN Ordering Facility: [facility] Address: [facility] [place] [address] Performed By: #### 2 4323-8 #### [facility] CLIA [id number] [address] [place] [address] Ferritin SerPl-mCncon 2021 Ferritin [Mass/Vol] 5.4 ng/mL Low 14.7-205.1 [facility] Comment on above: Order Comment: Speci men Type: BLOOD SPECIMEN Ordering Facility: [facility] Address: [address] [place], [place] [address] Performed By: #### 5 0190-8, 2131-9, 2283-8, 2275-4 #### [facility] CLIA [id number] [address] [place] [address] [place] Folate SerPl-mCncon 03-10-20 Folate [Mass/Vol] 8.7 ng/mL Normal >4.7 [facility] Comment on above: Order Comment: Speci men Type: BLOOD SPECIMEN Ordering Facility: [facility] Address: [address] [place] [address] Performed By: #### 5 0190-8, 9, 8, 2275-4 #### [facility] CLIA [id number] [address] [place] [address] [place] Iron and Iron binding capaci ty panelon 03-10-2022 Iron [Mass/Vol] 17 ug/dL Low 41-186 [facility] Comment on above: Order Comment: Speci men Type: BLOOD SPECIMEN Ordering Facility: [facility] Address: [address] [place], [place] [address] Performed By: #### 5 0190-8, 9, 2283-8, 2275-4 #### [facility] CLIA [id number] [address] [place] [address] [place] Iron binding capacity [Mass/Vol] 422 ug/dL High 232-386 [facility] Comment on above: Order Comment: Speci men Type: BLOOD SPECIMEN Ordering Facility: [facility] Address: [address] [place], [place] [id number] Performed By: #### 5 0190-8, 9, 2283-8, 2275-4 #### [facility] CLIA [id number] [address] [place] [address] [place] Iron/TIBC [Molar ratio] 4.0 % Low 15.0-57.0 C [facility] Comment on above: Order Comment: Roselyn conway Type: BLOOD SPECIMEN Ordering Facility: [facility] Address: [address] [place] [address] Performed By: #### 5 0190-8, 2131-9, 2283-8, 6-4 #### [facility] CLIA [id number] [address] [place] [address] [place] Vit B12 [facility] 03-10-2 022 Cobalamin (Vitamin B12) [Mass/Vol] 367 pg/mL Normal 232-1245 [facility] Comment on above: Order Comment: Spectigre conway Type: BLOOD SPECIMEN Ordering Facility: [facility] Address: [address] [place] [address] Performed By: #### 5 0190-8, 2131-9, 2283-8, 2275-4 #### [facility] CLIA [id number] [address] [place] [address] [place] Andrew 02-18-2022 CNPN Telephone (HEMBRITTANY) LIVIA NOYOLA ([id number]) 1985 F Date Time Provider Department 02/18/22 GIL NI During your visit today, we recorded the following information about you: Meaghan Ordonez 02/18/2022 3:15 PM Signed Patient has an appt on 02/23. Would you like labs? Allergies As of Date: 02/18/2022 Noted Allergy Reaction MORPHINE 06/20/2018 14 - Other: See Comments Comments: Spasms Date Reviewed: 10/27/2020 Reviewed by: Maria E Guthrie - Fully Assessed Reason for Visit: Lab Orders [1688] Primary Visit Diagnosis:Iron deficiency anemia due to chronic blood loss [D50.0] Order(s):CBC + DIFF [SQCBCDIF] Order #: [id number] FUTURE COMP METABOLIC PANEL [SQCMP] Order #: [id number] FUTURE IRON + TIBC [SQIRON] Order #: [id number] FUTURE FERRITIN BLD [SQFERR] Order #: [id number] FUTURE VITAMIN B12 BLOOD [SQB12] Order #: [id number] FUTURE FOLATE SERUM [SQSERFOL] Order #: [id number] FUTURE Prescriptions as of 02/20/2022 - ALPRAZolam (XANAX) 0.25 mg tablet TAKE 1 TABLET BY MOUTH EVERY 8 TO 12 HOURS NEEDED FOR ANXIETY - atenolol (TENORMIN) 25 mg tablet - citalopram (CELEXA) 20 mg tablet Take 20 mg by mouth once daily. - diphenhydrAMINE (BENADRYL) 25 mg capsule Take 25 mg by mouth every 6 hours as needed. - Multivitamins-Iron tab Take 1 tablet by mouth once daily. - ibuprofen (MOTRIN) 600 mg tablet Take 1 tablet by mouth every 6 hours. 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 F [facility] Blood anisocytosis detection Ordered By: Jennifer Duran on 02-12-2022 Anisocytosis Ql (Bld) Moderate [facility] Blood hemoglobin measurement (mass/volume)Ordered By: Jennifer Duran on 02-12-2022 Hemoglobin (Bld) [Mass/Vol] 8.5 g/dL 11.8-15.4 [facility] Blood leukocytes automated c ount (number/volume)Ordered By: Jennifer Duran on 02-12-2022 WBC (Bld) [#/Vol] 5.9 10*3/uL 4.5-11.0 [facility] Body fluid albumin measureme nt (mass/volume)Ordered By: Jennifer Duran on 02-12-2022 Albumin (Body fld) [Mass/Vol] 3.7 g/dL 3.2-5.[address] [facility] [address] biopsyOrdered By: Jennifer avila on 02-12-2022 Transferrin [Mass/Vol] 356 mg/dL 180-380 [facility] Creatinine and Glomerular fi ltration rate.predicted panel (S/P/Bld)Ordered By: Jennifer Duran on 02-12-2022 Creatinine [Mass/Vol] 0.72 mg/dL 0.44-1.03 [facility] Eosinophils Auto (Bld) [#/Vo l]Ordered By: Jennifre Duran on 02-12-2022 Eosinophils (Bld) [#/Vol] 0.1 10*3/uL 0.0-0.45 [facility] Eosinophils/100 WBC Auto (Bl d)Ordered By: Jennifer Duran on 02-12-2022 Eosinophils/100 WBC (Bld) 2.2 % . [facility] Erythrocyte distribution wid th Auto (RBC) [Ratio]Ordered By: Jennifer Duran on 02-12-2022 Erythrocyte distribution width (RBC) [Ratio] 17.3 % 11.9-15.3 [facility] Estimated glomerular filtrat ion rate (GFR) non- AmericanOrdered By: Jennifer Duran on 02-12-2022 GFR/1.73 sq M.predicted among non-blacks MDRD (S/P/Bld) [Vol rate/Area] > 60 mL/Min [facility] Ferritin [Mass/volume] in Se rum or PlasmaOrdered By: Jennifer Duran on 02-12-2022 Ferritin [Mass/Vol] 5.1 ng/mL 11-306.8 [facility] Globulin Calc (S) [Mass/Vol] Ordered By: Jennifer Duran on 02-12-2022 Globulin (S) [Mass/Vol] 2.9 g/dL F [facility] Hematocrit Auto (Bld) [Volum e fraction]Ordered By: Jennifer Duran on 02-12-2022 Hematocrit (Bld) [Volume fraction] 27.9 % 34.0-46.4 [facility] Hypochromia detectionOrdered By: Jennifer Duran on 02-12-2022 Hypochromia Ql (Bld) Slight [facility] Iron [Mass/volume] in Serum or PlasmaOrdered By: Jennifer Duran on 02-12-2022 Iron [Mass/Vol] 11 ug/dL 40-150 [facility] Iron binding capacity [Mass/ volume] in Serum or PlasmaOrdered By: Jennifer Duran on 02-12-2022 Iron binding capacity [Mass/Vol] 498 ug/dL 255-450 [facility] Iron saturation [Mass Fracti on] in Serum or PlasmaOrdered By: Jennifer Duran on 02-12-2022 Iron saturation [Mass fraction] 2.0 % 20-50 [facility] - Hematology and Cell countsOrdered By: Jennifer Duran on 02-12-2022 Nucleated RBC/100 WBC (Bld) [Ratio] 0.3 % 0-0.5 [facility] Lymphocytes Auto (Bld) [#/Vo l]Ordered By: Jennifer Duran on 02-12-2022 Lymphocytes (Bld) [#/Vol] 3.0 10*3/uL 1.00-4.8 [facility] Lymphocytes/100 WBC Auto (Bl d)Ordered By: Jennifer Duran on 02-12-2022 Lymphocytes/100 WBC (Bld) 50.8 % . [facility] MCH Auto (RBC) [Entitic mass ]Ordered By: Jennifer Duran on 02-12-2022 MCH (RBC) [Entitic mass] 20.1 pg 24.7-34.3 [facility] MCHC Auto (RBC) [Mass/Vol]Or dered By: Jennifer Duran on 02-12-2022 MCHC (RBC) [Mass/Vol] 30.4 g/dL 32.0-35.0 Fir [facility] MCV Auto (RBC) [Entitic vol] Ordered By: Jennifer Duran on 02-12-2022 MCV (RBC) [Entitic vol] 66.3 fL 80-100 F [facility] Monocytes Auto (Bld) [#/Vol] Ordered By: Jennifer Duran on 02-12-2022 Monocytes (Bld) [#/Vol] 0.3 10*3/uL 0.0-0.8 [facility] Monocytes/100 WBC Auto (Bld) Ordered By: Jennifer Duran on 02-12-2022 Monocytes/100 WBC (Bld) 5.7 % . F [facility] Neutrophils Auto (Bld) [#/Vo l]Ordered By: Jennifer Duran on 02-12-2022 Neutrophils (Bld) [#/Vol] 2.4 10*3/uL 1.8-7.7 [facility] Neutrophils/100 WBC Auto (Bl d)Ordered By: Jennifer Duran on 02-12-2022 Neutrophils/100 WBC (Bld) 40.3 % . [facility] No Panel InformationOrdered By: Jennifer Duran on 02-12-2022 Estimated GFR () > 60 mL/Min [facility] Comment on above: GFR estimated refere nce range: According to KDOQI guidelines, <60 ml/min/1.73m2 is sufficient to diagnose a patient with chronic kidney disease. Microcytosis Moderate [facility] Creatinine Clearance (Chem N/A [facility] Platelet Estimate Normal Normal [facility] Platelet Morphology Comment Normal Normal [facility] Platelet mean volume Auto (B ld) [Entitic vol]Ordered By: Jennifer Duran on 02-12-2022 Platelet mean volume (Bld) [Entitic vol] 8.1 fL 6.3-10.7 [facility] Platelets Auto (Bld) [#/Vol] Ordered By: Jennifer Duran on 02-12-2022 Platelets (Bld) [#/Vol] 459 10*3/uL 150-450 [facility] Protein [Mass/volume] in Ser um or PlasmaOrdered By: Jennifer Duran on 02-12-2022 Protein [Mass/Vol] 6.6 g/dL 6.1-7.9 [facility] RBC Auto (Bld) [#/Vol]Ordere d By: Jennifer Duran on 02-12-2022 RBC (Bld) [#/Vol] 4.20 10*6/uL 3.60-5.00 [facility] RBC morphologyOrdered By: Pool Duran on 02-12-2022 RBC morphology finding Nom (Bld) N/A [facility] Serum or plasma alanine syed otransferase measurement without P-5'-P (enzymatic activiOrdered By: Jennifer Duran on 02-12-2022 ALT No additional P-5'-P [Catalytic activity/Vol] 69 U/L 10-60 [facility] Serum or plasma albumin/glob ulin mass ratioOrdered By: Jennifer Duran on 02-12-2022 Albumin/Globulin [Mass ratio] 1.3 {ratio} [facility] Serum or plasma alkaline zeeshan sphatase measurement (enzymatic activity/volume)Ordered By: Jennifer Duran on 02-12-2022 ALP [Catalytic activity/Vol] 73 U/L 32-92 [facility] Serum or plasma anion gap de terminationOrdered By: Jennifer Duran on 02-12-2022 Anion gap [Moles/Vol] 13.2 mmol/L 6.0-15.0 [facility] Serum or plasma aspartate am inotransferase measurement (enzymatic activity/volume)Ordered By: Jennifer Duran on 02-12-2022 AST [Catalytic activity/Vol] 42 U/L 10-42 [facility] Serum or plasma calcium donaldo urement (mass/volume)Ordered By: Jennifer Duran on 02-12-2022 Calcium [Mass/Vol] 9.3 mg/dL 8.2-10.2 [facility] Serum or plasma chloride claudia surement (moles/volume)Ordered By: Jennifer Duran on 02-12-2022 Chloride [Moles/Vol] 101 mmol/L 95-114 [facility] Serum or plasma glucose donaldo urement (mass/volume)Ordered By: Jennifer Duran on 02-12-2022 Glucose [Mass/Vol] 98 mg/dL 70-100 [facility] Comment on above: ADA recommended refe rence range Random Glucose Reference Range is dependent on time and content of last meal. Glucose of more than 200 mg/dL in a nonstressed, ambulatory subject supports the diagnosis of Diabetes Mellitus. ADA recommended refe rence rangeRandom Glucose Reference Range is dependent on time and content of last meal. Glucose of more than 200 mg/dL in a nonstressed, ambulatory subject supports the diagnosis of Diabetes Mellitus. Serum or plasma potassium me asurement (moles/volume)Ordered By: Jennifer Duran on 02-12-2022 Potassium [Moles/Vol] 3.6 mmol/L 3.5-5.1 [facility] Serum or plasma sodium measu rement (moles/volume)Ordered By: Jennifer Duran on 02-12-2022 Sodium [Moles/Vol] 136 mmol/L 136-146 [facility] Serum or plasma total biliru bin measurement (mass/volume)Ordered By: Jennifer Duran on 02-12-2022 Bilirubin [Mass/Vol] 0.4 mg/dL 0.3-1.2 [facility] Serum or plasma total carbon dioxide measurement (moles/volume)Ordered By: Jennifer Duran on 02-12-2022 CO2 [Moles/Vol] 25.4 mmol/L 22.0-30.0 [facility] Serum or plasma urea nitroge n measurement (mass/volume)Ordered By: Jennifer Duran on 02-12-2022 Urea nitrogen [Mass/Vol] 4 mg/dL 9-23 [facility] Basophils Auto (Bld) [#/Vol] Ordered By: Kendra Persaud on 09-14-2021 Basophils (Bld) [#/Vol] 0.1 10*3/uL 0.0-0.2 [facility] Basophils/100 WBC Auto (Bld) Ordered By: Kendra Persaud on 09-14-2021 Basophils/100 WBC (Bld) 1.3 % [facility] Bilirubin Test strip Ql (U)O rdered By: Kendra Persaud on 09-14-2021 Bilirubin Ql (U) Negative Negative [facility] Blood hemoglobin measurement (mass/volume)Ordered By: Kendra Persaud on 09-14-2021 Hemoglobin (Bld) [Mass/Vol] 9.7 g/dL 11.8-15.4 [facility] Blood leukocytes automated c ount (number/volume)Ordered By: Kendra Persaud on 09-14-2021 WBC (Bld) [#/Vol] 8.9 10*3/uL 4.5-11.0 [facility] Body fluid albumin measureme nt (mass/volume)Ordered By: Kendra Persaud on 09-14-2021 Albumin (Body fld) [Mass/Vol] 3.7 g/dL 3.2-5.5 [facility] Color Auto (U)Ordered By: Jazmin Persaud on 09-14-2021 Color (U) Yellow Yellow [facility] Creatinine and Glomerular fi ltration rate.predicted panel (S/P/Bld)Ordered By: Kendra Persaud on 09-14-2021 Creatinine [Mass/Vol] 0.71 mg/dL 0.44-1.03 [facility] Eosinophils Auto (Bld) [#/Vo l]Ordered By: Kendra Persaud on 09-14-2021 Eosinophils (Bld) [#/Vol] 0.0 10*3/uL 0.0-0.45 [facility] Eosinophils/100 WBC Auto (Bl d)Ordered By: Kendra Persaud on 09-14-2021 Eosinophils/100 WBC (Bld) 0.4 % [facility] Erythrocyte distribution wid th Auto (RBC) [Ratio]Ordered By: Kendra Persaud on 09-14-2021 Erythrocyte distribution width (RBC) [Ratio] 17.0 % 11.9-15.3 [facility] Estimated glomerular filtrat ion rate (GFR) non- AmericanOrdered By: Kendra Persaud on 09-14-2021 GFR/1.73 sq M.predicted among non-blacks MDRD (S/P/Bld) [Vol rate/Area] > 60 mL/Min [facility] Globulin Calc (S) [Mass/Vol] Ordered By: Kendra Persaud on 09-14-2021 Globulin (S) [Mass/Vol] 3.2 g/dL F [facility] HCG ( test) IA.rapi d Ql (U)Ordered By: Kendra Persaud on 09-14-2021 HCG ( test) Ql (U) Negative [facility] Hematocrit Auto (Bld) [Volum e fraction]Ordered By: Kendra Persaud on 09-14-2021 Hematocrit (Bld) [Volume fraction] 31.9 % 34.0-46.4 [facility] Ketones Auto test strip (U) [Mass/Vol]Ordered By: Kendra Persaud on 09-14-2021 Ketones (U) [Mass/Vol] Negative Negative [facility] - Chemistry and C hemistry - challengeOrdered By: Kendra Persaud on 09-14-2021 Lipase [Catalytic activity/Vol] 36.0 U/L 22-51 [facility] - Hematology and Cell countsOrdered By: Kendra Persaud on 09-14-2021 Nucleated RBC/100 WBC (Bld) [Ratio] 0.0 % 0-0.5 [facility] Lymphocytes Auto (Bld) [#/Vo l]Ordered By: Kendra Persaud on 09-14-2021 Lymphocytes (Bld) [#/Vol] 4.1 10*3/uL 1.00-4.8 [facility] Lymphocytes/100 WBC Auto (Bl d)Ordered By: Kendra Persaud on 09-14-2021 Lymphocytes/100 WBC (Bld) 45.7 % [facility] MCH Auto (RBC) [Entitic mass ]Ordered By: Kendra Persaud on 09-14-2021 MCH (RBC) [Entitic mass] 21.3 pg 24.7-34.3 [facility] MCHC Auto (RBC) [Mass/Vol]Or dered By: Kendra Persaud on 09-14-2021 MCHC (RBC) [Mass/Vol] 30.4 g/dL 32.0-35.0 [facility] MCV Auto (RBC) [Entitic vol] Ordered By: Kendra Persaud on 09-14-2021 MCV (RBC) [Entitic vol] 70.0 fL 80-100 F [facility] Monocytes Auto (Bld) [#/Vol] Ordered By: Kendra Persaud on 09-14-2021 Monocytes (Bld) [#/Vol] 0.7 10*3/uL 0.0-0.8 [facility] Monocytes/100 WBC Auto (Bld) Ordered By: Kendra Persaud on 09-14-2021 Monocytes/100 WBC (Bld) 7.8 % F [facility] Neutrophils Auto (Bld) [#/Vo l]Ordered By: Kendra Persaud on 09-14-2021 Neutrophils (Bld) [#/Vol] 4.0 10*3/uL 1.8-7.7 [facility] Neutrophils/100 WBC Auto (Bl d)Ordered By: Kendra Persaud on 09-14-2021 Neutrophils/100 WBC (Bld) 44.8 % [facility] Nitrite Test strip Ql (U)Ord ered By: Kendra Persaud on 09-14-2021 Nitrite Ql (U) Negative Negative [facility] No Panel InformationOrdered By: Kendra Persaud on 09-14-2021 Estimated GFR () > 60 mL/Min [facility] Comment on above: GFR estimated refere nce range: According to KDOQI guidelines, <60 ml/min/1.73m2 is sufficient to diagnose a patient with chronic kidney disease. Pharmacy Creatinine Clearance (Chem 119.44 [facility] Platelet mean volume Auto (B ld) [Entitic vol]Ordered By: Kendra Persaud on 09-14-2021 Platelet mean volume (Bld) [Entitic vol] 7.4 fL 6.3-10.7 [facility] Platelets Auto (Bld) [#/Vol] Ordered By: Kendra Persaud on 09-14-2021 Platelets (Bld) [#/Vol] 604 10*3/uL 150-450 [facility] Protein Auto test strip (U) [Mass/Vol]Ordered By: Kendra Persaud on 09-14-2021 Protein (U) [Mass/Vol] Negative [facility] Protein [Mass/volume] in Ser um or PlasmaOrdered By: Kendra Persaud on 09-14-2021 Protein [Mass/Vol] 6.9 g/dL 6.1-7.9 [facility] RBC Auto (Bld) [#/Vol]Ordere d By: Kendra Persaud on 09-14-2021 RBC (Bld) [#/Vol] 4.55 10*6/uL 3.60-5.00 [facility] Serum or plasma alanine syed otransferase measurement without P-5'-P (enzymatic activiOrdered By: Kendra Persaud on 09-14-2021 ALT No additional P-5'-P [Catalytic activity/Vol] 16 U/L 10-60 [facility] Serum or plasma albumin/glob ulin mass ratioOrdered By: Kendra Persaud on 09-14-2021 Albumin/Globulin [Mass ratio] 1.2 {ratio} [facility] Serum or plasma alkaline zeeshan sphatase measurement (enzymatic activity/volume)Ordered By: Kendra Persaud on 09-14-2021 ALP [Catalytic activity/Vol] 48 U/L 32-92 [facility] Serum or plasma aspartate am inotransferase measurement (enzymatic activity/volume)Ordered By: Kendra Persaud 09-14-2021 AST [Catalytic activity/Vol] 17 U/L 10-42 [facility] Serum or plasma calcium donaldo urement (mass/volume)Ordered By: Kendra Persaud on 09-14-2021 Calcium [Mass/Vol] 9.0 mg/dL 8.2-10.2 [facility] Serum or plasma chloride claudia surement (moles/volume)Ordered By: Kendra Persaud on 09-14-2021 Chloride [Moles/Vol] 105 mmol/L 95-114 [facility] Serum or plasma glucose donaldo urement (mass/volume)Ordered By: Kendra Persaud on 09-14-2021 Glucose [Mass/Vol] 94 mg/dL 70-100 [facility] Comment on above: ADA recommended refe rence rangeRandom Glucose Reference Range is dependent on time and content of last meal. Glucose of more than 200 mg/dL in a nonstressed, ambulatory subject supports the diagnosis of Diabetes Mellitus. Serum or plasma potassium me asurement (moles/volume)Ordered By: Kendra Persaud on 09-14-2021 Potassium [Moles/Vol] 3.1 mmol/L 3.5-5.1 [facility] Serum or plasma sodium measu rement (moles/volume)Ordered By: Kendra Persaud on 09-14-2021 Sodium [Moles/Vol] 139 mmol/L 136-146 [facility] Serum or plasma total biliru bin measurement (mass/volume)Ordered By: Kendra Persaud on 09-14-2021 Bilirubin [Mass/Vol] 0.5 mg/dL 0.3-1.2 [facility] Serum or plasma total carbon dioxide measurement (moles/volume)Ordered By: Kendra Persaud on 09-14-2021 CO2 [Moles/Vol] 23.7 mmol/L 22.0-30.0 [facility] Serum or plasma urea nitroge n measurement (mass/volume)Ordered By: Kendra Persaud on 09-14-2021 Urea nitrogen [Mass/Vol] 4 mg/dL 9-23 [facility] Specific gravity Auto test s trip (U) [Rel density]Ordered By: Kendra Persaud on 09-14-2021 Specific gravity (U) [Rel density] 1.004 1.001-1.030 [facility] Urine clarity by refractomet ry automatedOrdered By: Kendra Persaud 09-14-2021 Clarity Refractometry automated (U) Clear Clear [facility] Urine glucose measurement by automated test strip (mass/volume)Ordered By: Kendra Persaud on 09-14-2021 Glucose Auto test strip (U) [Mass/Vol] Normal mg/dL Normal [facility] Urine hemoglobin detection b y automated test stripOrdered By: Kendra Persaud on 09-14-2021 Hemoglobin Auto test strip Ql (U) Negative Negative [facility] Urine leukocyte esterase det ection by automated test stripOrdered By: Kendra Persaud on 09-14-2021 Leukocyte esterase Auto test strip Ql (U) Negative Negative [facility] Urobilinogen Auto test strip (U) [Mass/Vol]Ordered By: Kendra Persaud on 09-14-2021 Urobilinogen (U) [Mass/Vol] Normal mg/dL Normal [facility] pH Auto test strip (U)Ordere d By: Kendra Persaud on 09-14-2021 pH (U) 6.5 [pH] 5.0-9.0 [facility] Basophils Auto (Bld) [#/Vol] Ordered By: Augustus Santiago on 07-04-2021 Basophils (Bld) [#/Vol] 0.1 10*3/uL 0.0-0.2 [facility] Basophils/100 WBC Auto (Bld) Ordered By: Augustus Santiago on 07-04-2021 Basophils/100 WBC (Bld) 0.9 [facility] Blood hemoglobin measurement (mass/volume)Ordered By: Augustus Santiago on 07-04-2021 Hemoglobin (Bld) [Mass/Vol] 10.2 g/dL 11.8-15.4 [facility] Blood leukocytes automated c ount (number/volume)Ordered By: Augustus Santiago on 07-04-2021 WBC (Bld) [#/Vol] 6.6 10*3/uL 4.5-11.[address] [facility] [address] biopsyOrdered By: Augustus powell on 07-04-2021 Transferrin [Mass/Vol] 360 mg/dL 180-380 Fi [facility] Creatinine and Glomerular fi ltration rate.predicted panel (S/P/Bld)Ordered By: Augustus Santiago on 07-04-2021 Creatinine [Mass/Vol] 0.69 mg/dL 0.44-1.03 [facility] Eosinophils Auto (Bld) [#/Vo l]Ordered By: Augustus Santiago on 07-04-2021 Eosinophils (Bld) [#/Vol] 0.1 10*3/uL 0.0-0.45 [facility] Eosinophils/100 WBC Auto (Bl d)Ordered By: Augustus Santiago on 07-04-2021 Eosinophils/100 WBC (Bld) 1.2 % [facility] Erythrocyte distribution wid th Auto (RBC) [Ratio]Ordered By: Augustus Santiago on 07-04-2021 Erythrocyte distribution width (RBC) [Ratio] 17.2 % 11.9-15.3 [facility] Estimated glomerular filtrat ion rate (GFR) non- AmericanOrdered By: Augustus Santiago on 07-04-2021 GFR/1.73 sq M.predicted among non-blacks MDRD (S/P/Bld) [Vol rate/Area] > 60 mL/Min [facility] Hematocrit Auto (Bld) [Volum e fraction]Ordered By: Augustus Santiago on 07-04-2021 Hematocrit (Bld) [Volume fraction] 32.0 % 34.0-46.4 [facility] Iron [Mass/volume] in Serum or PlasmaOrdered By: Augustus Santiago on 07-04-2021 Iron [Mass/Vol] 10 ug/dL 40-150 [facility] Iron binding capacity [Mass/ volume] in Serum or PlasmaOrdered By: Augustus Santiago on 07-04-2021 Iron binding capacity [Mass/Vol] 504 ug/dL 255-450 [facility] Iron saturation [Mass Fracti on] in Serum or PlasmaOrdered By: Augustus Santiago on 07-04-2021 Iron saturation [Mass fraction] 1.0 % 20-50 [facility] Laboratory - Hematology and Cell countsOrdered By: Augustus Santiago on 07-04-2021 Nucleated RBC/100 WBC (Bld) [Ratio] 0.0 % 0-0.5 [facility] Lymphocytes Auto (Bld) [#/Vo l]Ordered By: Augustus Santiago on 07-04-2021 Lymphocytes (Bld) [#/Vol] 1.9 10*3/uL 1.00-4.8 [facility] Lymphocytes/100 WBC Auto (Bl d)Ordered By: Augustus Santiago on 07-04-2021 Lymphocytes/100 WBC (Bld) 28.4 % [facility] MCH Auto (RBC) [Entitic mass ]Ordered By: Augustus Santiago on 07-04-2021 MCH (RBC) [Entitic mass] 22.7 pg 24.7-34.3 [facility] MCHC Auto (RBC) [Mass/Vol]Or dered By: Augustus Santiago on 07-04-2021 MCHC (RBC) [Mass/Vol] 31.9 g/dL 32.0-35.0 [facility] MCV Auto (RBC) [Entitic vol] Ordered By: Augustus Santiago on 07-04-2021 MCV (RBC) [Entitic vol] 71.3 fL 80-100 F [facility] Monocytes Auto (Bld) [#/Vol] Ordered By: Augustus Santiago on 07-04-2021 Monocytes (Bld) [#/Vol] 0.5 10*3/uL 0.0-0.8 [facility] Monocytes/100 WBC Auto (Bld) Ordered By: Augustus Santiago on 07-04-2021 Monocytes/100 WBC (Bld) 7.6 % F [facility] Neutrophils Auto (Bld) [#/Vo l]Ordered By: Augustus Santiago on 07-04-2021 Neutrophils (Bld) [#/Vol] 4.1 10*3/uL 1.8-7.7 [facility] Neutrophils/100 WBC Auto (Bl d)Ordered By: Augustus Santiago on 07-04-2021 Neutrophils/100 WBC (Bld) 61.9 % [facility] No Panel InformationOrdered By: Augustus Santiago on 07-04-2021 D-Dimer Quantitative (PE/DVT) < 200 ng/mL 0-243 [facility] Comment on above: The reference range for D-dimer is <243 ng/mL D-dimer units.D-dimer results must be used in conjunction with a clinicalpretest probability (PTP) assessment model for deep veinthrombosis (DVT) and pulmonary embolism (PE). Results <230ng/mL d-dimer units can be used as a negative predictor inpatients with low or moderate probability for DVT/PE.Results above the exclusion threshold of 230 ng/ml D-dimerunits for DVT/PE may indicate the need for furtherdiagnostic testing.D-Dimer can be increased in hospitalized patients due toco-morbid conditions. Estimated GFR () > 60 mL/Min [facility] Comment on above: GFR estimated refere nce range: According to KDOQI guidelines, <60 ml/min/1.73m2 is sufficient to diagnose a patient with chronic kidney disease. Pharmacy Creatinine Clearance (Chem N/A [facility] Platelet mean volume Auto (B ld) [Entitic vol]Ordered By: Augustus Santiago on 07-04-2021 Platelet mean volume (Bld) [Entitic vol] 7.9 fL 6.3-10.7 [facility] Platelets Auto (Bld) [#/Vol] Ordered By: Augustus Santiago on 07-04-2021 Platelets (Bld) [#/Vol] 457 10*3/uL 150-450 [facility] RBC Auto (Bld) [#/Vol]Ordere d By: Augustus Santiago on 07-04-2021 RBC (Bld) [#/Vol] 4.48 10*6/uL 3.60-5.00 [facility] Serum or plasma calcium donaldo urement (mass/volume)Ordered By: Augustus Santiago on 07-04-2021 Calcium [Mass/Vol] 8.9 mg/dL 8.2-10.2 [facility] Serum or plasma chloride claudia surement (moles/volume)Ordered By: Augustus Santiago on 07-04-2021 Chloride [Moles/Vol] 105 mmol/L 95-114 [facility] Serum or plasma glucose donaldo urement (mass/volume)Ordered By: Augustus Santiago on 07-04-2021 Glucose [Mass/Vol] 110 mg/dL 70-100 [facility] Comment on above: ADA recommended refe rence rangeRandom Glucose Reference Range is dependent on time and content of last meal. Glucose of more than 200 mg/dL in a nonstressed, ambulatory subject supports the diagnosis of Diabetes Mellitus. Serum or plasma potassium me asurement (moles/volume)Ordered By: Augustus Santiago on 07-04-2021 Potassium [Moles/Vol] 3.5 mmol/L 3.5-5.1 [facility] Serum or plasma sodium measu rement (moles/volume)Ordered By: Augustus Santiago on 07-04-2021 Sodium [Moles/Vol] 136 mmol/L 136-146 [facility] Serum or plasma total carbon dioxide measurement (moles/volume)Ordered By: Augustus Santiago on 07-04-2021 CO2 [Moles/Vol] 23.0 mmol/L 22.0-30.0 [facility] Serum or plasma urea nitroge n measurement (mass/volume)Ordered By: Augustus Santiago on 07-04-2021 Urea nitrogen [Mass/Vol] 5 mg/dL 03-05 [facility] Cardiac Stress Teston 2020 Cardiac Stress Test [facility] [address], [address], [place] [address] TRANSTHORACIC ECHOCARDIOGRAM REPORT Patient Name: LIVIA NOYOLA Reading Physician: [id number] Raphael Alas MD Study Date: 08/06/2020 Referring Physician: [id number] CANTU MRN/PID: [id number] PCP: Jennifer Duran Accession/Order#: [id number] Department Location: [facility] Date of : 1985 Fellow: Gender: F Nurse: Admit Date: Finger Buff Sewer: Josephine Newton RDCS, RVT Height: 165.10 cm CC Report to: Weight: 88.00 kg Study Type: Echocardiogram BSA: 1.95 m2 Diagnosis/ICD: R06.00-Dyspnea, unspecified; R00.0-Tachycardia, unspecified Indication: Obesity, Family History of CAD Procedure/CPT: Echo Complete w Full [id number] Study Detail: The following Echo studies were performed: 2D, M-Mode, Doppler and color flow. PHYSICIAN INTERPRETATION: Left Ventricle: The left ventricular systolic function is normal, with an estimated ejection fraction of 65%. The left ventricular cavity size is normal. Spectral Doppler shows a normal pattern of left ventricular diastolic filling. Left Atrium: The left atrium is normal in size. Right Ventricle: The right ventricle is normal in size. There is normal right ventricular global systolic function. Right Atrium: The right atrium is normal in size. Aortic Valve: The aortic valve appears structurally normal. There is no evidence of aortic valve regurgitation. The peak instantaneous gradient of the aortic valve is 7.6 mmHg. The mean gradient of the aortic valve is 4.0 mmHg. Mitral Valve: The mitral valve is normal in structure. There is no evidence of mitral valve regurgitation. Tricuspid Valve: The tricuspid valve is structurally normal. No evidence of tricuspid regurgitation. Pulmonic Valve: The pulmonic valve is structurally normal. There is no indication of pulmonic valve regurgitation. Pericardium: There is no pericardial effusion noted. Aorta: The aortic root is normal. Systemic Veins: The inferior vena cava appears to be of normal size. Additional Comments: Normal Echocardiogram. CONCLUSIONS: 1. The left ventricular systolic function is normal with a 65% estimated ejection fraction. 2. No change when compared to prior study. QUANTITATIVE DATA SUMMARY: 2D MEASUREMENTS: Normal Ranges: Ao Root d: 2.60 cm (2.0-3.7cm) LAs: 3.30 cm (2.7-4.0cm) RVIDd: 2.20 cm (0.9-3.6cm) IVSd: 0.80 cm (0.6-1.1cm) LVPWd: 0.90 cm (0.6-1.1cm) LVIDd: 4.50 cm (3.9-5.9cm) LVIDs: 2.80 cm LV Mass Index: 63.0 g/m2 LV % FS 37.8 % LV SYSTOLIC FUNCTION BY 2D PLANIMETRY (MOD): Normal Ranges: EF-A4C View: 64.9 % (>55%) LV DIASTOLIC FUNCTION: Normal Ranges: MV Peak E: 1.05 m/s (0.7-1.2 m/s) MV Peak A: 0.74 m/s (0.42-0.7 m/s) E/A Ratio: 1.43 (1.0-2.2) MV lateral e' 0.14 m/s MV medial e' 0.09 m/s E/e' Ratio: 7.20 (<8.0) MITRAL VALVE: Normal Ranges: MV Vmax: 1.20 m/s (<1.3m/s) MV peak P.8 mmHg (<5mmHg) MV mean P.0 mmHg (<48mmHg) AORTIC VALVE: Normal Ranges: AoV Vmax: 1.38 m/s (<1.7m/s) AoV Peak P.6 mmHg (<20mmHg) AoV Mean P.0 mmHg (1.7-11.5mmHg) LVOT Max Amaury: 0.85 m/s (<1.1m/s) AoV VTI: 28.10 cm (18-25cm) LVOT VTI: 14.50 cm LVOT Diameter: 2.30 cm (1.8-2.4cm) AoV Area, VTI: 2.14 cm2 (2.5-5.5cm2) AoV Area,Vmax: 2.56 cm2 (2.5-4.5cm2) AoV Dimensionless Index: 0.52 PULMONIC VALVE: Normal Ranges: PV Max Amaury: 0.9 m/s (0.6-0.9m/s) PV Max P.0 mmHg [id number] Raphael Alas MD Electronically signed on 08/07/2020 at 4:26:59 PM Final Normal [facility] Vital Signs Date Time Vital Sign Value Performing Clinician Facility 07-31-2023 18:01-0500 Diastolic blood pressure 87 mm[Hg] Jignesh Dumont [facility] 07-31-2023 18:01-0500 Heart rate 121 /min Jignesh Dumont [facility] 07-31-2023 18:01-0500 Mean blood pressure 99 mm[Hg] Jignesh Dumont [facility] 07-31-2023 18:01-0500 Respiratory rate 16 /min Jignesh Dumont [facility] 07-31-2023 18:01-0500 SaO2% (BldA) [Mass fraction] 99 % Jignesh Dumont [facility] 07-31-2023 18:01-0500 Systolic blood pressure 123 mm[Hg] Jignesh Dumont [facility] 07-31-2023 17:00-0500 Diastolic blood pressure 77 mm[Hg] Jignesh Dumont [facility] 07-31-2023 17:00-0500 Heart rate 96 /min Jignesh Dumont [facility] 07-31-2023 17:00-0500 Mean blood pressure 92 mm[Hg] Jignesh Dumont [facility] 07-31-2023 17:00-0500 Systolic blood pressure 122 mm[Hg] Jignesh Tim [facility] 07-31-2023 16:07-0500 Diastolic blood pressure 90 mm[Hg] Jignesh Tim [facility] 07-31-2023 16:07-0500 Heart rate 117 /min Jignesh Tim [facility] 07-31-2023 16:07-0500 Mean blood pressure 105 mm[Hg] Jignesh Tim [facility] 07-31-2023 16:07-0500 Respiratory rate 19 /min Jignesh Tim [facility] 07-31-2023 16:07-0500 SaO2% (BldA) [Mass fraction] 100 % Jignesh Dumont [facility] 07-31-2023 16:07-0500 Systolic blood pressure 135 mm[Hg] Jignesh Tim [facility] 07-31-2023 16:06-0500 Respiratory rate 18 /min Jignesh Tim [facility] 07-31-2023 15:34-0500 Body temperature 97.88 [degF] Jingesh Tim [facility] 07-31-2023 15:34-0500 Heart rate 136 /min Jignesh Tim [facility] 07-31-2023 15:34-0500 Respiratory rate 18 /min Jignesh Tim [facility] 07-19-2023 12:40-0500 Body height 165.1 cm Jennifer Duran Other [employer] Other 04-30-2023 18:19-0500 Diastolic blood pressure 82 mm[Hg] DO Jennifer Duran Work Phone: [facility] 04-30-2023 18:19-0500 Heart rate 128 /min DO Jennifer Duran Work Phone: [facility] 04-30-2023 18:19-0500 Respiratory rate 18 /min DO Jennifer Duran Work Phone: [facility] 04-30-2023 18:19-0500 SaO2% (BldA) [Mass fraction] 99 % DO Jennifer Duran Work Phone: [facility] 04-30-2023 18:19-0500 Systolic blood pressure 116 mm[Hg] DO Jennifer Duran Work Phone: [facility] 04-30-2023 16:43-0500 Body height 165.1 cm DO Jennifer Duran Work Phone: [facility] 04-30-2023 16:43-0500 Body temperature 98.1 [degF] DO Jennifer Duran Work Phone: [facility] 04-30-2023 16:43-0500 Body weight 62.3 kg DO Jennifer Duran Work Phone: [facility] 04-24-2023 15:51-0500 Diastolic blood pressure 81 mm[Hg] Jignesh Dumont [facility] 04-24-2023 15:51-0500 Heart rate 98 /min Jignesh Dumont [facility] 04-24-2023 15:51-0500 Mean blood pressure 94 mm[Hg] Jignesh Tim [facility] 04-24-2023 15:51-0500 Respiratory rate 17 /min Jignesh Tim [facility] 04-24-2023 15:51-0500 SaO2% (BldA) [Mass fraction] 99 % Jignesh Dumont [facility] 04-24-2023 15:51-0500 Systolic blood pressure 120 mm[Hg] Jignesh Dumont [facility] 04-24-2023 15:00-0500 Diastolic blood pressure 72 mm[Hg] Jignesh Tim [facility] 04-24-2023 15:00-0500 Heart rate 85 /min Jignesh Tim [facility] 04-24-2023 15:00-0500 Mean blood pressure 87 mm[Hg] Jignesh Tim [facility] 04-24-2023 15:00-0500 Respiratory rate 16 /min Jignesh Tim [facility] 04-24-2023 15:00-0500 SaO2% (BldA) [Mass fraction] 96 % Jignesh Tim [facility] 04-24-2023 15:00-0500 Systolic blood pressure 117 mm[Hg] Jignesh Tim [facility] 04-24-2023 14:00-0500 Diastolic blood pressure 88 mm[Hg] Jignesh Tim [facility] 04-24-2023 14:00-0500 Heart rate 99 /min Jignesh Tim [facility] 04-24-2023 14:00-0500 Mean blood pressure 100 mm[Hg] Jignesh Tim [facility] 04-24-2023 14:00-0500 Respiratory rate 18 /min Jignesh Tim [facility] 04-24-2023 14:00-0500 SaO2% (BldA) [Mass fraction] 97 % Jignesh Tim [facility] 04-24-2023 14:00-0500 Systolic blood pressure 124 mm[Hg] Jignesh Tim [facility] 04-24-2023 13:29-0500 Body temperature 99.14 [degF] Jignesh Dumont [facility] 04-24-2023 13:29-0500 Heart rate 118 /min Jignesh Dumont [facility] 04-03-2023 00:20-0400 Diastolic blood pressure 70 mm[Hg] DO Jennifer Kendallivelisse Work Phone: [facility] 04-03-2023 00:20-0400 Heart rate 80 /min DO Jennifer Kendallivelisse Work Phone: [facility] 04-03-2023 00:20-0400 SaO2% (BldA) [Mass fraction] 98 % DO Jennifer Kendallivelisse Work Phone: [facility] 04-03-2023 00:20-0400 Systolic blood pressure 122 mm[Hg] DO Jennifer Duran Work Phone: [facility] 04-02-2023 21:48-0400 Diastolic blood pressure 75 mm[Hg] DO Jennifer Kendallivelisse Work Phone: [facility] 04-02-2023 21:48-0400 Heart rate 90 /min DO Jennifer Kendallivelisse Work Phone: [facility] 04-02-2023 21:48-0400 Respiratory rate 20 /min DO Jennifer Kendallivelisse Work Phone: [facility] 04-02-2023 21:48-0400 SaO2% (BldA) [Mass fraction] 98 % DO Jennifer Kendallivelisse Work Phone: [facility] 04-02-2023 21:48-0400 Systolic blood pressure 109 mm[Hg] DO Jennifer Kendallivelisse Work Phone: [facility] 04-02-2023 20:23-0400 Body height 165.1 cm DO Jennifer Kendallivelisse Work Phone: [facility] 04-02-2023 20:23-0400 Body temperature 98.2 [degF] DO Jennifer Girvin Work Phone: [facility] 04-02-2023 20:23-0400 Body weight 81.64 kg DO Jennifer Girivelisse Work Phone: [facility] 03-29-2023 16:11-0400 Body temperature 97.8 [degF] DO Jennifer Girvin Work Phone: [facility] 03-29-2023 16:11-0400 Diastolic blood pressure 79 mm[Hg] DO Jennifer Girvin Work Phone: [facility] 03-29-2023 16:11-0400 Heart rate 104 /min DO Jennifer Girvin Work Phone: [facility] 03-29-2023 16:11-0400 Respiratory rate 16 /min DO Jennifer Girvin Work Phone: [facility] 03-29-2023 16:11-0400 SaO2% (BldA) [Mass fraction] 98 % DO Jennifer Girivelisse Work Phone: [facility] 03-29-2023 16:11-0400 Systolic blood pressure 123 mm[Hg] DO Jennifer Girivelisse Work Phone: [facility] 03-29-2023 06:35-0400 Body height 165.1 cm DO Jennifer Girivelisse Work Phone: [facility] 03-29-2023 06:35-0400 Body weight 87.5 kg DO Jennifer Girivelisse Work Phone: [facility] 03-29-2023 05:41-0400 Diastolic blood pressure 85 mm[Hg] DO Jennifer Girivelisse Work Phone: [facility] 03-29-2023 05:41-0400 Heart rate 110 /min DO Jennifer Girvin Work Phone: [facility] 03-29-2023 05:41-0400 Respiratory rate 18 /min DO Jennifer Girvin Work Phone: [facility] 03-29-2023 05:41-0400 SaO2% (BldA) [Mass fraction] 100 % DO Jennifer Girivelisse Work Phone: [facility] 03-29-2023 05:41-0400 Systolic blood pressure 160 mm[Hg] DO Jennifer Girivelisse Work Phone: [facility] 03-29-2023 01:39-0400 Body height 165.1 cm DO Jennifer Girivelisse Work Phone: [facility] 03-29-2023 01:39-0400 Body temperature 97.2 [degF] DO Jennifer Girivelisse Work Phone: [facility] 03-29-2023 01:39-0400 Body weight 87 kg DO Jennifer Girivelisse Work Phone: [facility] 02-06-2023 04:00-0400 Diastolic blood pressure 74 mm[Hg] DO Jennifer Duran Work Phone: [facility] 02-06-2023 04:00-0400 Heart rate 79 /min DO Jennifer Duran Work Phone: [facility] 02-06-2023 04:00-0400 Respiratory rate 15 /min DO Jennifer Duran Work Phone: [facility] 02-06-2023 04:00-0400 SaO2% (BldA) [Mass fraction] 99 % DO Jennifer Duran Work Phone: [facility] 02-06-2023 04:00-0400 Systolic blood pressure 119 mm[Hg] DO Jennifer Girivelisse Work Phone: [facility] 02-05-2023 23:41-0400 Body height 165.1 cm DO Jennifer Girivelisse Work Phone: [facility] 02-05-2023 23:41-0400 Body temperature 98 [degF] DO Jennifer Girivelisse Work Phone: [facility] 02-05-2023 23:41-0400 Body weight 81.64 kg DO Jennifer Girivelisse Work Phone: [facility] 01-12-2023 14:40-0400 Body height 165.1 cm Jennifer Duran Other [employer] Other 01-12-2023 14:40-0400 Body mass index (BMI) [Ratio] 33.44 kg/m2 Jennifer Duran Other [employer] Other 01-12-2023 14:40-0400 Body temperature 99.5 [degF] Jennifer Duran Other [employer] Other 01-12-2023 14:40-0400 Body weight 91.17 kg Jennifer Duran Other [employer] Other 01-12-2023 14:40-0400 Diastolic blood pressure 78 mm[Hg] Jennifer Duran Other [employer] Other 01-12-2023 14:40-0400 Respiratory rate 18 /min Jennifer Enochivelisse Other [employer] Other 01-12-2023 14:40-0400 SaO2% (BldA) [Mass fraction] 97 % Jennifer Enochivelisse Other [employer] Other 01-12-2023 14:40-0400 Systolic blood pressure 110 mm[Hg] Jennifer Duran Other [employer] Other 10-11-2022 16:20-0400 Body height 165.1 cm Jennifer Duran Other [employer] Other 07-12-2022 16:20-0500 Body height 165.1 cm Jennifer Duran Other [employer] Other 07-12-2022 16:20-0500 Body mass index (BMI) [Ratio] 31.2 kg/m2 Jennifer Duran Other [employer] Other 07-12-2022 16:20-0500 Body temperature 97.2 [degF] Jennifer Duran Other [employer] Other 07-12-2022 16:20-0500 Body weight 85.05 kg Jennifer Duran Other [employer] Other 07-12-2022 16:20-0500 Diastolic blood pressure 74 mm[Hg] Jennifer Duran Other [employer] Other 07-12-2022 16:20-0500 Respiratory rate 18 /min Jennifer Duran Other [employer] Other 07-12-2022 16:20-0500 SaO2% (BldA) [Mass fraction] 99 % Jennifer Duran Other [employer] Other 07-12-2022 16:20-0500 Systolic blood pressure 106 mm[Hg] Jennifer Duran Other [employer] Other 04-28-2022 04:00-0500 Diastolic blood pressure 70 mm[Hg] DO Jennifer Kendallivelisse Work Phone: [facility] 04-28-2022 04:00-0500 Heart rate 81 /min DO Jennifer Wilber Work Phone: [facility] 04-28-2022 04:00-0500 SaO2% (BldA) [Mass fraction] 96 % DO Jennifer Duran Work Phone: [facility] 04-28-2022 04:00-0500 Systolic blood pressure 110 mm[Hg] DO Jennifer Kendallivelisse Work Phone: [facility] 04-28-2022 03:56-0500 Body height 165.1 cm DO Jennifer Duran Work Phone: [facility] 04-28-2022 03:56-0500 Body weight 80 kg DO Jennifer Duran Work Phone: [facility] 04-28-2022 03:56-0500 Respiratory rate 18 /min DO Jennifer Duran Work Phone: [facility] 04-28-2022 00:13-0500 Body temperature 97.2 [degF] DO Jennifer Duran Work Phone: [facility] 04-12-2022 15:40-0400 Body height 165.1 cm Jennifer Enochivelisse Other [facility] [employer] Other 04-12-2022 15:40-0400 Body mass index (BMI) [Ratio] 30.37 kg/m2 Jennifer Duran Other [employer] Other 04-12-2022 15:40-0400 Body temperature 98.8 [degF] Jennifer Duran Other [employer] Other 04-12-2022 15:40-0400 Body weight 82.78 kg Jennifer Kendallivelisse Other [employer] Other 04-12-2022 15:40-0400 Diastolic blood pressure 76 mm[Hg] Jennifer Duran Other [employer] Other 04-12-2022 15:40-0400 Respiratory rate 18 /min Jennifer Enochivelisse Other [employer] Other 04-12-2022 15:40-0400 SaO2% (BldA) [Mass fraction] 98 % Jennifer Duran Other [employer] Other 04-12-2022 15:40-0400 Systolic blood pressure 110 mm[Hg] Jennifer Duran Other [employer] Other 04-09-2022 13:32-0400 Body temperature 97.59 [degF] Chair Patria Work Phone: [facility] 04-09-2022 13:32-0400 Diastolic blood pressure 64 mm[Hg] Chair Loudon Work Phone: [facility] 04-09-2022 13:32-0400 Heart rate 114 /min Chair Loudon Work Phone: [facility] 04-09-2022 13:32-0400 Respiratory rate 18 /min Chair Loudon Work Phone: [facility] 04-09-2022 13:32-0400 SaO2% (BldA) [Mass fraction] 97 % Chair Loudon Work Phone: [facility] 04-09-2022 13:32-0400 Systolic blood pressure 116 mm[Hg] Chair Loudon Work Phone: [facility] 03-26-2022 13:54-0400 Body temperature 97.9 [degF] Chair Loudon Work Phone: [facility] 03-26-2022 13:54-0400 Diastolic blood pressure 75 mm[Hg] Chair Loudon Work Phone: [facility] 03-26-2022 13:54-0400 Heart rate 82 /min Chair Patria Work Phone: [facility] 03-26-2022 13:54-0400 Respiratory rate 18 /min Chair Patria Work Phone: [facility] 03-26-2022 13:54-0400 SaO2% (BldA) [Mass fraction] 100 % Chair Loudon Work Phone: [facility] 03-26-2022 13:54-0400 Systolic blood pressure 106 mm[Hg] Chair Patria Work Phone: [facility] 03-10-2022 13:54-0400 Body height 165.1 cm Gil Ni APRN.CNP Work Phone: [facility] 03-10-2022 13:54-0400 Body temperature 97.9 [degF] Gil Ni APRN.FLASH WELDER Work Phone: [facility] 03-10-2022 13:54-0400 Body weight 83.37 kg Gil Ni APRN.FLASH WELDER Work Phone: [facility] 03-10-2022 13:54-0400 Diastolic blood pressure 75 mm[Hg] Gil Ni APRN.FLASH WELDER Work Phone: [facility] 03-10-2022 13:54-0400 Heart rate 95 /min Gil Ni APRN.FLASH WELDER Work Phone: [facility] 03-10-2022 13:54-0400 Respiratory rate 16 /min Gil Ni APRN.FLASH WELDER Work Phone: [facility] 03-10-2022 13:54-0400 SaO2% (BldA) [Mass fraction] 100 % Gil Ni APRN.FLASH WELDER Work Phone: [facility] 03-10-2022 13:54-0400 Systolic blood pressure 130 mm[Hg] Gil Ni APRN.FLASH WELDER Work Phone: [facility] 12-04-2021 12:49-0400 Blood Pressure Location Yamilka [facility]by [facility] 12-04-2021 12:49-0400 Body temperature 98.42 [degF] Yamlika Orzech [facility] 12-04-2021 12:49-0400 Diastolic blood pressure 82 mm[Hg] Yamilka Orzech [facility] 12-04-2021 12:49-0400 Heart rate 110 /min Yamilka Orzech [facility] 12-04-2021 12:49-0400 SaO2% (BldA) [Mass fraction] 99 % Yamilka [employer] [facility] 12-04-2021 12:49-0400 Systolic blood pressure 126 mm[Hg] [facility] 10-16-2021 09:10-0400 Body height 165.1 cm Jennifer Duran Other [facility] [employer] Other 09-14-2021 19:31-0400 Diastolic blood pressure 82 mm[Hg] DO Jennifer Duran Work Phone: [facility] 09-14-2021 19:31-0400 Heart rate 87 /min DO Jennifer Duran Work Phone: [facility] 09-14-2021 19:31-0400 Respiratory rate 18 /min DO Jennifer Duran Work Phone: [facility] 09-14-2021 19:31-0400 SaO2% (BldA) [Mass fraction] 99 % DO Jennifer Duran Work Phone: [facility] 09-14-2021 19:31-0400 Systolic blood pressure 126 mm[Hg] DO Jennifer Duran Work Phone: [facility] 09-14-2021 14:45-0400 Body height 165.1 cm DO Jennifer Duran Work Phone: [facility] 09-14-2021 14:45-0400 Body mass index (BMI) [Ratio] 30.7 kg/m2 DO Jennifer Duran Work Phone: [facility] 09-14-2021 14:45-0400 Body temperature 98 [degF] DO Jennifer Duran Work Phone: [facility] 09-14-2021 14:45-0400 Body weight 83.91 kg DO Jennifer Duran Work Phone: [facility] 04-21-2021 16:20-0500 Body height 165.1 cm Jennifer Duran Other [employer] Other 04-21-2021 16:20-0500 Body mass index (BMI) [Ratio] 32.28 kg/m2 Jennifer Enochivelisse Other [employer] Other 04-21-2021 16:20-0500 Body temperature 98.3 [degF] Jennifer Enochivelisse Other [employer] Other 04-21-2021 16:20-0500 Body weight 88 kg Jennifer Duran Other [employer] Other 04-21-2021 16:20-0500 Diastolic blood pressure 82 mm[Hg] Jennifer Enochivelisse Other [employer] Other 04-21-2021 16:20-0500 SaO2% (BldA) [Mass fraction] 98 % Jennifer Enochivelisse Other [employer] Other 04-21-2021 16:20-0500 Systolic blood pressure 124 mm[Hg] Jennifer Duran Other [employer] Other Encounters Encounter Date Encounter Type Care Provider Facility Start: 09-06-2023 End: 09-06-2023 Emergency department patient visit DESTINI [facility] Start: 07-31-2023 End: 07-31-2023 Emergency department patient visit Jignesh Dumont Facility:[facility] Start: 07-31-2023 End: 07-31-2023 Emergency department patient visit Jignesh Dumont [facility] Start: 07-28-2023 End: 07-28-2023 ambulatory PHYSICIAN NO [facility] Work Phone: Start: 07-28-2023 End: 07-28-2023 Patient encounter procedure PHYSICIAN NO [facility] Work Phone: Start: 07-19-2023 End: 07-19-2023 ambulatory Jennifer Duran Other [employer] Other Start: 07-19-2023 Telephone encounter Jennifer Duran [facility] Start: 06-22-2023 End: 06-23-2023 Emergency department patient visit EVGENY SEN MD Facility:[facility] Start: 06-07-2023 End: 06-07-2023 ambulatory Jennifer Duran Other [employer] Other Start: 06-07-2023 Telephone encounter Jennifer Duran [facility] Start: 05-30-2023 End: 05-30-2023 [facility] Start: 05-17-2023 End: 05-18-2023 Emergency department patient visit Ritesh Heath Facility:[facility] Start: 05-16-2023 End: 05-16-2023 ambulatory Jennifer Duran Other [employer] Other Start: 05-16-2023 Telephone encounter Jennifer Duran [facility] [place] Start: 04-30-2023 End: 04-30-2023 Emergency department patient visit Elier Jackson Facility:[facility] Start: 04-30-2023 End: 04-30-2023 Emergency department patient visit DO Jennifer Duran Work Phone: [facility] Work Phone: Start: 04-24-2023 End: 04-24-2023 Emergency department patient visit Jignesh Dumont Facility:[facility] Start: 04-24-2023 End: 04-24-2023 Emergency department patient visit Jignesh Dumont [facility] Start: 04-18-2023 End: 04-18-2023 ambulatory Jennifer Duran Other [employer] Other Start: 04-18-2023 Telephone encounter Jennifer Duran [facility] [place] Start: 04-11-2023 End: 04-11-2023 ambulatory Jennifer Duran Other [employer] Other Start: 04-11-2023 Telephone encounter Jennifer Kendallivelisse [facility] [place] Start: 04-04-2023 End: 04-04-2023 ambulatory Jennifer Duran Other [employer] Other Start: 04-04-2023 Telephone encounter Jennifer Enochivelisse [facility] Start: 04-02-2023 End: 04-03-2023 Emergency department patient visit Jennifer Duran Facility:[facility] Start: 04-02-2023 End: 04-03-2023 Emergency department patient visit DO Jennifer Duran Work Phone: [facility] Work Phone: Start: 04-01-2023 End: 04-01-2023 ambulatory Jennifer Duran Other [employer] Other Start: 04-01-2023 Telephone encounter Jennifer Wilber [facility] [place] Start: 03-29-2023 Telephone encounter Jennifer Duran [facility] Start: 03-29-2023 End: 03-29-2023 ambulatory Kiko Saenz [place] [employer] Other Start: 03-29-2023 End: 03-29-2023 Evaluation and management of inpatient DO Jennifer Duran Work Phone: [facility] [place] [facility] Work Phone: Start: 03-29-2023 End: 03-29-2023 observation encounter DO Jennifer Duran Work Phone: [facility] Work Phone: Start: 03-13-2023 End: 03-13-2023 ambulatory Jennifer Duran Facility:[facility] Start: 03-13-2023 End: 03-13-2023 ambulatory DO Jennifer Duran Work Phone: [facility] Work Phone: Start: 03-13-2023 End: 03-13-2023 Patient encounter procedure DO Jennifer Duran Work Phone: [facility]-Flu Vaccine Start: 03-02-2023 End: 03-02-2023 ambulatory Jennifer Duran Other [employer] Other Start: 03-02-2023 Telephone encounter Jennifer Duran [facility] Start: 02-06-2023 End: 02-06-2023 Emergency department patient visit Jennifer Kendallivelisse Facility:[facility] Start: 02-05-2023 End: 02-06-2023 Emergency department patient visit DO Jennifer Duran Work Phone: [facility] Work Phone: Start: 01-12-2023 End: 01-12-2023 ambulatory Jennifer Kendallivelisse Other [employer] Other Start: 01-12-2023 Office outpatient visit 15 minutes Jennifer Duran [facility] Start: 12-09-2022 End: 12-09-2022 ambulatory Jennifer Duran Other [employer] Other Start: 12-09-2022 Telephone encounter Jennifer Duran [facility] Start: 10-11-2022 End: 10-11-2022 ambulatory Jennifer Duran Other [employer] Other Start: 10-11-2022 Telephone encounter Jennifer Duran [facility] Start: 09-22-2022 End: 09-22-2022 ambulatory Jennifer Duran Other [employer] Other Start: 09-22-2022 Telephone encounter Jennifer Duran [facility] Start: 07-28-2022 End: 07-28-2022 ambulatory BELKIS SANDOVAL Facility:[facility] Start: 07-12-2022 End: 07-12-2022 ambulatory Jennifer Duran Other [employer] Other Start: 07-12-2022 Office outpatient visit 15 minutes Jennifer Duran [facility] [place] Start: 07-12-2022 Telephone encounter Jennifer MOLINA [facility] Start: 06-02-2022 End: 06-02-2022 ambulatory Jennifer Duran Other [employer] Other Start: 06-02-2022 Telephone encounter Jennifer Duran [facility] Start: 05-04-2022 End: 05-04-2022 ambulatory Jennifer Duran Other [employer] Other Start: 05-04-2022 Telephone encounter Jennifer Duran [facility] [place] Start: 04-30-2022 Telephone encounter Gil arechiga APRN.FLASH WELDER Work Phone: Hematology/Oncology Comment on above: Lab Orders Start: 04-28-2022 Evaluation and management of inpatient DO Jennifer Duran Work Phone: [facility] [place] Start: 04-28-2022 observation encounter DO Jennifer Duran Work Phone: [facility] Work Phone: Start: 04-12-2022 End: 04-12-2022 ambulatory Jennifer Duran Other [employer] Other Start: 04-12-2022 Office outpatient visit 15 minutes Jennifer Duran [facility] Start: 04-12-2022 Telephone encounter Jennifer Duran [facility] [place] Start: 04-09-2022 End: 04-10-2022 ambulatory Stephenie Suh 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 [employer] Comment on above: Art Therapy Iron deficiency anem ia due to chronic blood loss (Primary Dx); Malabsorption of iron; Cyst of left ovary Start: 03-26-2022 End: 03-27-2022 ambulatory GIL NI Facility:[facility] Start: 03-26-2022 End: 03-26-2022 ambulatory Chair Walton Loudon Work Phone: Hematology/Oncology Comment on above: Iron deficiency anem ia due to chronic blood loss (Primary Dx); Malabsorption of iron; Cyst of left ovary Start: 03-15-2022 Telephone encounter Sharon Saavedra CHAIR CAR DRIVER H ematology/Oncology Comment on above: Social Work Services Start: 03-10-2022 End: 03-11-2022 ambulatory Gil Ni DOLL REPAIRER.FLASH WELDER Work Phone: Hematology/Oncology Comment on above: Iron deficiency anem ia due to chronic blood loss (Primary Dx); Malabsorption of iron Start: 03-10-2022 End: 03-10-2022 Patient encounter procedure Gil Ni DOLL REPAIRER.FLASH WELDER Work Phone: [facility] Start: 02-18-2022 Telephone encounter Gil arechiga DOLL REPAIRER.FLASH WELDER Work Phone: Hematology/Oncology Comment on above: Lab Orders Start: 02-16-2022 End: 02-16-2022 ambulatory Jennifer Duran Other [employer] Other Start: 02-16-2022 Telephone encounter Jennifer Duran [facility] Start: 02-12-2022 End: 02-12-2022 Patient encounter procedure DO Jennifer Duran Work Phone: [facility] [place] Start: 01-07-2022 End: 01-07-2022 ambulatory Jennifer Duran Other [employer] Other Start: 01-07-2022 Telephone encounter Jennifer Duran [facility] Start: 12-04-2021 End: 12-04-2021 Patient encounter procedure Yamilka Lorenzo [facility] Start: 10-29-2021 End: 10-29-2021 ambulatory Jennifer Duran Other [employer] Other Start: 10-29-2021 Telephone encounter Jennifer Duran [facility] Start: 10-16-2021 End: 10-16-2021 ambulatory Jennifer Duran Other [employer] Other Start: 10-16-2021 Office outpatient visit 15 minutes Jennifer Duran [facility] Start: 09-21-2021 End: 09-21-2021 ambulatory Jennifer Duran Other [employer] Other Start: 09-21-2021 Telephone encounter Jennifer Duran [facility] [place] Start: 09-14-2021 End: 09-14-2021 Emergency department patient visit DO Jennifer Duran Work Phone: [facility] Start: 08-18-2021 End: 08-18-2021 ambulatory Jennifer Duran Other [employer] Other Start: 08-18-2021 Telephone encounter Jennifer Duran [facility] [place] Start: 08-11-2021 End: 08-11-2021 ambulatory Jennifer Duran Other [employer] Other Start: 08-11-2021 Telephone encounter Jennifer Duran [facility] Start: 08-03-2021 End: 08-03-2021 ambulatory Jennifer Duran Other [employer] Other Start: 08-03-2021 Telephone encounter Jennifer Duran [facility] [place] Start: 07-04-2021 End: 07-04-2021 Patient encounter procedure DO Jennifer Duran Work Phone: [facility] [place] Start: 06-04-2021 End: 06-04-2021 ambulatory Jennifer Duran Other [employer] Other Start: 06-04-2021 Telephone encounter Jennifer Duran [facility] Start: 05-18-2021 End: 05-18-2021 ambulatory Jennifer Duran Other [employer] Other Start: 05-18-2021 Telephone encounter Jennifer Duran [facility] Start: 04-21-2021 End: 04-21-2021 ambulatory Jennifer Duran Other [employer] Other Start: 04-21-2021 Encounter for genera l adult medical examination without abnormal findings Jennifer Duran [facility] Start: 04-21-2021 Periodic preventive med est patient 18-39 yrs Jennifer Duran [facility] Procedures Date Procedure Procedure Detail Performing Clinician Start: 04-30-2023 Pelvic echography DO Da vid Girivelisse Work Phone: Start: 04-30-2023 Transvaginal echography DO Jennifer Duran Work Phone: Start: 03-29-2023 Computed tomography of abdomen and pelvis with contrast DO Jennifer Duran Work Phone: Start: 03-29-2023 Transvaginal echography DO Jennifer Duran Work Phone: Start: 03-29-2023 Pelvic echography DO Da vid Girivelisse Work Phone: Start: 02-06-2023 Pelvic echography DO Da vid Girvin Work Phone: Start: 02-06-2023 Transvaginal echography DO Jennifer Duran Work Phone: Start: 02-05-2023 Computed tomography of abdomen and pelvis with contrast DO Jennifer Duran Work Phone: Start: 09-14-2021 Computed tomography of abdomen and pelvis with contrast DO Jennifer Duran Work Phone: Start: 09-14-2021 Pelvic echography DO Da vid Girvin Work Phone: Start: 09-14-2021 Transvaginal echography DO Jennifer Druan Work Phone: Plan of Treatment Date Care Activity Detail Author Start: 03-30-2023 Comprehensive metabo lic 2000 panel - Serum or Plasma [facility] Start: 03-30-2023 [facility] Start: 03-29-2023 [facility] Start: 03-29-2023 Referral to queen producer [facility] Start: 03-29-2023 Hospital admission [facility] Start: 03-29-2023 [facility] Start: 03-29-2023 Computed tomography of abdomen and pelvis with contrast CT abdomen pelvis w con [facility] Start: 03-29-2023 CT Abdomen and Pelvi s W contrast IV [facility] Start: 03-29-2023 [facility] Start: 03-29-2023 US Pelvis transvaginal [facility] Start: 03-29-2023 Pelvic echography US pelvic complete [facility] Start: 03-29-2023 US Pelvis [facility] Start: 02-06-2023 Pelvic echography US pelvic complete [facility] Start: 02-06-2023 US Pelvis [facility] Start: 02-06-2023 [facility] Start: 02-06-2023 US Pelvis transvaginal [facility] Start: 02-05-2023 Computed tomography of abdomen and pelvis with contrast CT abdomen pelvis w con [facility] Start: 02-05-2023 CT Abdomen and Pelvi s W contrast IV [facility] Start: 05-05-2022 End: 07-05-2022 CBC W Auto Differential panel - Blood CBC + DIFF Lab Routine Iron deficiency anemia due to chronic blood loss Malabsorption of iron Expected: 05/05/2022, Expires: 07/05/2022 [facility] Work Phone: Comment on above: Expected: 05/05/2022 , Expires: 07/05/2022 Start: 05-03-2022 End: 07-03-2022 Comprehensive metabolic 2000 panel - Serum or Plasma COMP METABOLIC PANEL Lab Routine Iron deficiency anemia due to chronic blood loss Expected: 05/03/2022, Expires: 07/03/2022 [facility] Work Phone: Comment on above: Expected: 05/03/2022 , Expires: 07/03/2022 Start: 04-28-2022 Pelvic echography US pelvic complete [facility] Start: 04-28-2022 US Pelvis [facility] Start: 04-28-2022 CT Abdomen and Pelvi s WO contrast [facility] Start: 04-28-2022 CT of abdomen and pe lvis without contrast CT abdomen pelvis wo con [facility] Start: 04-28-2022 Transvaginal echography US transvagi nal [facility] Start: 04-28-2022 US Pelvis transvaginal [facility] Start: 02-23-2022 End: 02-20-2023 CBC W Auto Differential panel - Blood CBC + DIFF Lab Routine Iron deficiency anemia due to chronic blood loss Expected: 02/23/2022 (Approximate), Expires: 02/20/2023 [facility] Work Phone: Comment on above: Expected: 02/23/2022 (Approximate), Expires: 02/20/2023 Start: 02-23-2022 End: 02-20-2023 Cobalamin (Vitamin B12) [Mass/volume] in Serum or Plasma VITAMIN B12 BLOOD Lab Routine Iron deficiency anemia due to chronic blood loss Expected: 02/23/2022 (Approximate), Expires: 02/20/2023 [facility] Work Phone: Comment on above: Expected: 02/23/2022 (Approximate), Expires: 02/20/2023 Start: 02-23-2022 End: 02-20-2023 Comprehensive metabolic 2000 panel - Serum or Plasma COMP METABOLIC PANEL Lab Routine Iron deficiency anemia due to chronic blood loss Expected: 02/23/2022 (Approximate), Expires: 02/20/2023 [facility] Work Phone: Comment on above: Expected: 02/23/2022 (Approximate), Expires: 02/20/2023 Start: 02-23-2022 End: 02-20-2023 Ferritin [Mass/volume] in Serum or Plasma FERRITIN BLD Lab Routine Iron deficiency anemia due to chronic blood loss Expected: 02/23/2022 (Approximate), Expires: 02/20/2023 [facility] Work Phone: Comment on above: Expected: 02/23/2022 (Approximate), Expires: 02/20/2023 Start: 02-23-2022 End: 02-20-2023 Folate [Mass/volume] in Serum or Plasma FOLATE SERUM Lab Routine Iron deficiency anemia due to chronic blood loss Expected: 02/23/2022 (Approximate), Expires: 02/20/2023 [facility] Work Phone: Comment on above: Expected: 02/23/2022 (Approximate), Expires: 02/20/2023 Start: 02-23-2022 End: 02-20-2023 Iron and Iron binding capacity panel - Serum or Plasma IRON + TIBC Lab Routine Iron deficiency anemia due to chronic blood loss Expected: 02/23/2022 (Approximate), Expires: 02/20/2023 [facility] Work Phone: Comment on above: Expected: 02/23/2022 (Approximate), Expires: 02/20/2023 Start: 02-11-2022 Influenza vaccination INFLUENZA (#1) [facility] Start: 06-13-2021 DEPRESSION ASSESSMENT DEPRESSION ASS ESSMENT [facility] Start: 11-30-2020 COVID-19 VACCINE (3 - Booster for Moderna series) COVID-19 VACCINE (3 - Booster for Moderna series) [facility] Start: 08-27-2020 COVID-19 VACCINE (3 - Booster for Moderna series) COVID-19 VACCINE (3 - Booster for Moderna series) [facility] Start: 2017 HPV TESTING HPV TESTING [facility] Start: 01-11-2008 PAP TESTING PAP TESTING [facility] Start: 2006 Urine microalbumin profile DTAP,TDAP,TD (1 - Tdap) [facility] Start: 2005 HEPATITIS C SCREENING HEPATITIS C SC REENING [facility] Start: 2005 HIV SCREENING HIV SCREENING [facility] Start: 1999 Adult depression screening assessment DEPRESSION SCREENING [facility] Start: 1987 HEPATITIS B (1 of 3 - 3-dose series) HEPATITIS B (1 of 3 - 3-dose series) [facility] Patient Education [facility] Work Phone: Patient referral [facility] Work Phone: [facility] Immunizations Immunization Date Immunization Notes Care Provider Fa cility 03-13-2023 influenza, injectable, quadrivalent, preservative free Jennifer Duran Other [facility] 03-31-2021 influenza, seasonal, injectable Jennifer Duran Other [facility] 07-02-2020 COVID-19 Vaccine Moderna - Documentation Purposes Only Jennifer Duran Other [facility] 06-04-2020 COVID-19 Vaccine Moderna - Documentation Purposes Only Jennifer Duran Other [facility] 12-10-2008 measles, mumps and rubella virus vaccine [facility] NEGATED: Highlighted row has not occurred!03-23-2019 influenza, seasonal, injectable Patient Objection Jennifer Duran Other [employer] Other Payers Date Payer Category Payer Self-pay [id number] 2018 Unknown [id number] 1987 Unknown [id number] 1987 Unknown [id number] [id number] 1987 Unknown [id number] 1987 Unknown [id number] 2.16.8 [id number] 1987 Unknown [id number] 2.16.8 [id number] 1987 Unknown [id number] 2.16.8 [id number] 1959 Unknown [id number] Unknown [id number] Unknown [id number] Unknown [id number] [id number] [id number] Unknown [id number] [id number] Unknown [id number] 2.16.8 [id number] Unknown [id number] [id number] [id number] Unknown [id number] [id number] [id number] Social History Date Type Detail Facility Start: 09-14-2021 End: 12-04-2021 Tobacco smoking status NHIS Never smoked tobacco (finding) [facility] Start: 1985 Sex Assigned At Female F [facility] Tobacco smoking status Never [facility] Sex Assigned At Female [place] [employer] Other Start: 04-05-2018 End: 03-10-2022 Tobacco use and exposure Smokeless tobacco non-user [facility] Start: 10-27-2020 End: 03-10-2022 Alcohol intake Current drinker of alcohol (finding) [facility] Start: 04-05-2018 History SDOH Alcohol Comment socially [facility] Start: 1985 Sex Assigned At Not on file C [facility] Start: 02-06-2022 End: 04-09-2022 Exposure to SARS-CoV-2 (event) Not sure [facility] History of tobacco use Passive smoker [facility] Goals Date Patient Goal Desired Activity /State Functional Status Date Assessment Result Facility 07-31-2023 Functional Status N/A [facility] 04-24-2023 Functional Status N/A [facility] 03-29-2023 Functional status Patient at Baseline [facility] Work Phone: 12-04-2021 Functional Status N/A [facility] Mental Status Date Assessment Result Facility 03-29-2023 Cognitive function Cognitive Sta tus Patient at Baseline [facility] Work Phone: Clinical Notes 03-19-2019 to 07-31-2023 Note Date & Type Note Facility 07-31-2023 Hospital Discharg e instructions Patient Education 07/31/2023 17:55:00 Abdominal Pain, Adult Abdominal Pain, Adult Pain in the abdomen (abdominal pain) can be caused by many things. Often, abdominal pain is not serious and it gets better with no treatment or by being treated at home. However, sometimes abdominal pain is serious. Your health care provider will ask questions about your medical history and do a physical exam to try to determine the cause of your abdominal pain. Follow these instructions at home: Medicines Take oapb-vol-vhbxwvk and prescription medicines only as told by your health care provider. Do not take a laxative unless told by your health care provider. General instructions Watch your condition for any changes. Drink enough fluid to keep your urine pale yellow. Keep all follow-up visits as told by your health care provider. This is important. Contact a health care provider if: Your abdominal pain changes or gets worse. You are not hungry or you lose weight without trying. You are constipated or have diarrhea for more than 2 3 days. You have pain when you urinate or have a bowel movement. Your abdominal pain wakes you up at night. Your pain gets worse with meals, after eating, or with certain foods. You are vomiting and cannot keep anything down. You have a fever. You have blood in your urine. Get help right away if: Your pain does not go away as soon as your health care provider told you to expect. You cannot stop vomiting. Your pain is only in areas of the abdomen, such as the right side or the left lower portion of the abdomen. Pain on the right side could be caused by appendicitis. You have bloody or black stools, or stools that look like tar. You have severe pain, cramping, or bloating in your abdomen. You have signs of dehydration, such as: ?Dark urine, very little urine, or no urine. ?Cracked lips. ?Dry mouth. ?Sunken eyes. ?Sleepiness. ?Weakness. You have trouble breathing or chest pain. Summary Often, abdominal pain is not serious and it gets better with no treatment or by being treated at home. However, sometimes abdominal pain is serious. Watch your condition for any changes. Take ecba-nsu-eafyiux and prescription medicines only as told by your health care provider. Contact a health care provider if your abdominal pain changes or gets worse. Get help right away if you have severe pain, cramping, or bloating in your abdomen. This information is not intended to replace advice given to you by your health care provider. Make sure you discuss any questions you have with your health care provider. Document Revised: 07/18/2020 Document Reviewed: 10/08/2019 [facility] Patient Education 2022 [employer]. Follow Up Care 07/31/2023 15:34:13 With:Follow-up with your PRODUCTION INSPECTOR at [facility] Address:Unknown When:08/03/2023 17:52:19 Comments:Call the office of your primary care doctor to arrange for follow-up within the above-stated timeframe. Follow-up with your primary care doctor about this ED visit. You should review your labs, imaging, and diagnoses from this ED visit with your primary care physician. There are occasionally non-emergent findings that require additional follow-up after your ED visit. If you were prescribed medications you should discuss possible side-effects and drug interactions with your pharmacist. Call 911 or go to the nearest Emergency Department if you develop any new or worsening symptoms.Seek immediate medical attention if you develop:worsening abdominal pain, new or worsening nausea, new or worsening vomiting, new or worsening diarrhea, chest pain, shortness of breath, pain with urination, problems urinating, fever, chills, weakness, or any new or worsening symptoms. [facility] 07-19-2023 Evaluation note Encounter Date Diagnosis Assessment Notes Jul, Anxiety (ICD-10 - F41.9) [facility] Other 02-06-2024 Evaluation note* Encounter Date Diagnosis Assessment Notes Treatment Notes Treatment Clinical Notes Jul, Anxiety (ICD-10 - F41.9) She is doing well on the Celexa and feels the dose is adequate. She is doing well on the Xanax and was provided with a refill on this today. An OARRS report was printed and reviewed, no discrepancies noted. Frequent appointments needed due to addiction potential of medication. Pain inventory sheet completed and reviewed if opiod medication given. Pain contract is on file if pertinent. Patient will have office visits every three months for evaluation or sooner if needed. I discussed addiction potential of medication with the patient. Discussed with the patient and provided a treatment plan including the use of non-opiod analgesics and non-pharmacological intervention with patient if treated for pain. We have discussed realistic benefits and known risks of opiod/controlled therapy and the expected benefits for both pain and function. These benefits outweigh the risks. Patient has been counselled on the dangers of combining opiods/controlled prescriptions with alcohol or other sedatives and counseled on the safe storage and disposal of opiods/controlled prescriptions. Do not drive or operate heavy machinery after taking opiod/controlled medication. I have verified that no current substance abuse treatments are being prescribed. Jul, Other 12:54 PM - 1:00 PM She had to reschedule an appointment with her specialist through the [facility] and is scheduled at the end of this month (July) and is hoping to have a total hysterectomy. [facility] Other 12-26-2023 Evaluation note* Encounter Date Diagnosis Assessment Notes Treatment Notes Treatment Clinical Notes May, Cough (ICD-10 - R05.9) [facility] Other 12-04-2023 Evaluation note* Encounter Date Diagnosis Assessment Notes Treatment Notes Treatment Clinical Notes May, Anxiety (ICD-10 - F41.9) [facility] Other 11-12-2023 Hospital Discharge instructions Patient Education 04/24/2023 15:51:48 Abdominal Pain, Adult Abdominal Pain, Adult Pain in the abdomen (abdominal pain) can be caused by many things. Often, abdominal pain is not serious and it gets better with no treatment or by being treated at home. However, sometimes abdominal pain is serious. Your health care provider will ask questions about your medical history and do a physical exam to try to determine the cause of your abdominal pain. Follow these instructions at home: Medicines Take myya-bdb-fjngxvb and prescription medicines only as told by your health care provider. Do not take a laxative unless told by your health care provider. General instructions Watch your condition for any changes. Drink enough fluid to keep your urine pale yellow. Keep all follow-up visits as told by your health care provider. This is important. Contact a health care provider if: Your abdominal pain changes or gets worse. You are not hungry or you lose weight without trying. You are constipated or have diarrhea for more than 2 3 days. You have pain when you urinate or have a bowel movement. Your abdominal pain wakes you up at night. Your pain gets worse with meals, after eating, or with certain foods. You are vomiting and cannot keep anything down. You have a fever. You have blood in your urine. Get help right away if: Your pain does not go away as soon as your health care provider told you to expect. You cannot stop vomiting. Your pain is only in areas of the abdomen, such as the right side or the left lower portion of the abdomen. Pain on the right side could be caused by appendicitis. You have bloody or black stools, or stools that look like tar. You have severe pain, cramping, or bloating in your abdomen. You have signs of dehydration, such as: ?Dark urine, very little urine, or no urine. ?Cracked lips. ?Dry mouth. ?Sunken eyes. ?Sleepiness. ?Weakness. You have trouble breathing or chest pain. Summary Often, abdominal pain is not serious and it gets better with no treatment or by being treated at home. However, sometimes abdominal pain is serious. Watch your condition for any changes. Take xsvt-jyp-eojjssm and prescription medicines only as told by your health care provider. Contact a health care provider if your abdominal pain changes or gets worse. Get help right away if you have severe pain, cramping, or bloating in your abdomen. This information is not intended to replace advice given to you by your health care provider. Make sure you discuss any questions you have with your health care provider. Document Revised: 07/18/2020 Document Reviewed: 10/08/2019 [facility] Patient Education 2022 [employer]. Follow Up Care 04/24/2023 13:13:55 With:YOUR OBGYN at [facility] Address:Unknown When:04/27/2023 15:50:22 Comments:Seek immediate medical attention if you develop:worsening abdominal pain, new or worsening nausea, new or worsening vomiting, new or worsening diarrhea, chest pain, shortness of breath, pain with urination, problems urinating, fever, chills, weakness, or any new or worsening symptoms.Call the office of your primary care doctor to arrange for follow-up within the above- stated timeframe. Follow-up with your primary care doctor about this ED visit. You should review your labs, imaging, and diagnoses from this ED visit with your primary care physician. There are occasionally non-emergent findingsthat require additional follow-up after your ED visit. If you were prescribed medications you should discuss possible side-effects and drug interactions with your pharmacist. Call 911 or go to the nearest Emergency Department if you develop any new or worsening symptoms. 3. [facility]11-12-2023 Evaluation + Plan noteExtracted from: Title:ED Note Author:Jignesh Dumont DO Date:06/24/22 Abdominal pain, acute, left lower quadrant (R10.32: Left lower quadrant pain) Ordered: oxycodone, 5 mg = 1 cap(s), Oral, q6hr, PRN Pain 8-10, X 3 day(s), # 12 cap(s), Refills(s) 0, Pharmacy: [facility]/pharmacy #[id number], 165.1, cm, 04/24/23 13:32:00 EST, Height/Length Dosing, 84, kg, 04/24/23 13:32:00 EST, Weight Dosing Orders: acetaminophen-oxycodone, 1 tab(s), Tab, Oral, Once, Stop date 04/24/23 15:52:00 EST, STAT, Start date 04/24/23 15:52:00 EST HYDROmorphone, 0.5 mg = 0.5 mL, Injection, IV Push, Once, Stop date 04/24/23 14:26:00 EST, STAT, Start date 04/24/23 14:26:00 EST, 04/24/23 14:26:00 EST ketorolac, 30 mg = 1 mL, Injection, IV Push, Once, Stop date 04/24/23 13:57:00 EST, STAT, Start date 04/24/23 13:57:00 EST, 04/24/23 13:57:00 EST ondansetron, 4 mg = 2 mL, Injection, IV Push, Once, Stop date 04/24/23 13:57:00 EST, STAT, Start date 04/24/23 13:57:00 EST, 04/24/23 13:57:00 EST Sodium Chloride 0.9% intravenous solution, 1,000 mL, Soln-IV, IV, Once, Stop date 04/24/23 13:57:00 EST, STAT, Start date 04/24/23 13:57:00 EST, Infuse over 61, minute(s) Automated Diff Basic Metabolic Panel Beta hCG Qual CBC w/ Auto Diff CT Abdomen/Pelvis w/ Contrast ED Cardiac Monitoring eGFR Extra Blue Tube Saline Lock Insert UA With Cult Reflex [facility]11-06-2023 Evaluation note* Encounter Date Diagnosis Assessment Notes Treatment Notes Treatment Clinical Notes Apr, Cough (ICD-10 - R05.9) She did request a refill on the cough syrup. She is reminded not to take the Xanax within 12 hours of taking the cough syrup. Do not drive after taking or operate heavy machinery. Side effects/risks/bene fits of medication were reviewed. Apr, Acute sinusitis (ICD-10 - J01.90) She voices that within the first five days of symptoms she tested twice for COVID-19 and both tests were negative. I did recommend that she test herself for COVID-19 again to be sure this is not COVID-19. If this is negative then she is to fill the Augmentin prescription I will send in for her. Stop Doxycyline. Apr, Anxiety (ICD-10 - F41.9) She does not need the Xanax at this time. She will call when she runs low on the medication. Do not take any Xanax within 12 hours of taking the Hycodan. An OARRS report was printed and reviewed, no discrepancies noted. Frequent appointments needed due to addiction potential of medication. Pain inventory sheet completed and reviewed if opiod medication given. Pain contract is on file if pertinent. Patient will have office visits every three months for evaluation or sooner if needed. I discussed addiction potential of medication with the patient. Discussed with the patient and provided a treatment plan including the use of non-opiod analgesics and non-pharmacological intervention with patient if treated for pain. We have discussed realistic benefits and known risks of opiod/controlled therapy and the expected benefits for both pain and function. These benefits outweigh the risks. Patient has been counselled on the dangers of combining opiods/controlled prescriptions with alcohol or other sedatives and counseled on the safe storage and disposal of opiods/controlled prescriptions. Do not drive or operate heavy machinery after taking opiod/controlled medication. I have verified that no current substance abuse treatments are being prescribed. Apr, Other She has an appointment with her specialist at the [facility] in June (2023) which was the soonest they could get her in. She is hoping that they will at least remove the ovary but she is willing to have a total hysterectomy if they will do it. 1:13 PM - 1:20 PM [facility] Other 10-20-2023 Evaluation note* Encounter Date Diagnosis Assessment Notes Treatment Notes Treatment Clinical Notes Mar, Anxiety (ICD-10 - F41.9) [facility] Other 10-17-2023 Progress note Author Christi Aquino [facility] March 29, 2023 4:11pm Note Date/Time March 29, 2023 1 1:35am [facility] [address] [place] [id number] Progress Note Signed with Lester Patient: Livia Noyola MR#: [id number] : 1985 Acct:[id number] Age/Sex: 38 / F Adm Date: 3 Loc: 3T Room: [address] [place] [address] Type: ADM IN Attending Dr: Christi Aquino MD Copies to: ~ ADDENDUM1 Upon re-evaluation in the afternoon, patient feels better and would like to go home. Prescribed pain medications as needed as directed. Advised to continue to follow up with [facility] staff manager operational. 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 Discussed with patient and her mother at bedside. All questions answered. She is in agreement and comfortable with discharge plan with these prescriptions. Addendum Documented By: Christi Aquino MD 03/29/23 161 Addendum Signed By: <Electronically signed by Christi Aquino MD> 03/29/231610 Date of Service: 03/29/2023 Progress Narrative Note Intractable abdominal pain, possibly due to endometriosis rule out other etiologies PROGRESS NOTE Progress Note: Patient was seen and evaluated at bedside this morning. she was admitted overnight by overnight hospitalist. Refer to H&P for further details. She is requiring multiple IV pain medications. Still with abdominal pain mostly left sided. manager operational eval requested for further evaluation. 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 Afebrile here, no leukocytosis or obvious evidence of infectious process. Placed on Pain meds regimen IV and PO. Ongoing monitoringfor now. Documented By: Christi Aquino MD 03/29/23 11 32 Signed By: <Electronically signed by Christi Aquino MD> 03/29/[id number] [facility] Work Phone: 1(522) 858-866710-17-2023 History and physical note Author Megan Muniz [facility] March 29, 2023 7:29am Note Date/Time March 29, 2023 7 :29am [facility] [address] [place] [address] Hospitalist H&P Signed Patient: Livia Noyola MR#: [id number] : 1985 Acct:[id number] Age/Sex: 38 / F Adm Date: 3 Loc: 3T Room: 5H1644-2 Type: ADM IN Attending Dr: Christi Aquino MD Copies to: DO Christi Singh MD Ruta Semaskiene, MD~ HPI DATE OF EXAMINATION: 03/29/23 CHIEF COMPLAINT: Abdominal pain HISTORY OF PRESENT ILLNESS: 38 years old female who has a history of endometriosis, status post ablation x2,left ovarian cyst complicated with rupture requiring multiple interventions in the past presented with left-sided lower abdominal pain. 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 Patient denied any nausea any vomiting. Denied any dysuria urgency frequency. She is passing flatus and had normal bowel movements. She never had colonoscopy. She denies any fever any chills. In emergency room patient underwent transvaginal ultrasound which showed left ovarian cyst with patent blood flow. CT scan of the abdomen and pelvis did not reveal any acute findings. The patient case was discussed with PRODUCTION INSPECTOR, who was not convinced that left ovarian cyst causing the pain. Patient still complained of severe intractable pain and required multiple IV medications. 10 systems are reviewed and are negative apart as mentioned in H&P General -patient is awake alert oriented ?3, she does appear to be in distress due to pain, holding her lower abdomen HEENT -normal oropharyngeal mucosa without any ulcers or exudates Cardiovascular -S1 plus S2, with regular rate but tachycardia Pulmonary -clear to auscultation bilaterally Gastrointestinal -abdomen is soft, nondistended, but significantly tender in theleft lower abdomen, there was no rigidity, no groin tenderness noted, bowel sounds noted Genitourinary -deferred Musculoskeletal -no significant joint swelling Neurological -no focal Skin -no significant ulcers, no rash noted Extremities - no edema in bilateral lower extremities noted Psychiatry -in distress due to pain Laboratory work up, imaging studies reviewed Previous records in the computer system reviewed [facility] Medical History Anemia Endometriosis Surgical History History of cholecystectomy History of removal of ovarian cyst Family History (Updated 03/29/23 @ 06:45 by Simin Lugo RN) Father Heart disease Grandparent Breast CA Social History Smoking Status: Never smoker Substance Use Type: None Meds Medications and Allergies Allergies morphine Adverse Reaction (Verified 03/29/23 01:38) Unknown Reaction Home Medications alprazolam 0.25 mg tablet 0.25 mg PO TID PRN Anxiety 03/29/23 [History Confirmed 03/29/23] citalopram 20 mg tablet 20 mg PO DAILY 03/29/23 [History Confirmed 03/29/23] naproxen 500 mg tablet (Naprosyn) 500 mg PO BID PRN pain 5 days #10 tabs 03/29/23 [Rx] ondansetron HCl 4 mg tablet 4 mg PO Q8H PRN nausea and vomiting 5 days #15 tabs 03/29/23 [Rx] oxycodone 5 mg tablet 5 mg PO Q6H PRN severe pain (scale score 7-10) 3 days #12 tabs 03/29/23 [Rx] Exam Physical Exam Vital Signs: Temp Pulse Resp BP Pulse Ox O2 Del Method 36.4 C L 100 H 18 127/85 97 Room Air 03/29/23 06:35 03/29/23 06:35 03/29/23 06:35 03/29/23 06:35 03/29/23 06:35 03/29/23 06:35 Results Lab Results Labs: Laboratory Last Values Corrected WBC 7.5 X10E3/uL (3.8-11.6) 03/29/23 01:40 Uncorrected WBC Count 7.5 x10E3/uL (3.8-11.6) 03/29/23 01:40 RBC 4.34 X10E6/uL (3.60-5.00) 03/29/23 01:40 Hgb 10.4 g/dL (11.8-15.4) L 03/29/23 01:40 Hct 32.6 % (34.0-46.4) L 03/29/23 01:40 MCV 75.2 fl (80-100) L 03/29/23 01:40 MCH 24.1 pg (24.7-34.3) L 03/29/23 01:40 MCHC 32.0 g/dL (32.0-35.0) 03/29/23 01:40 RDW 15.2 % (11.9-15.3) 03/29/23 01:40 Plt Count 396 x10E3/uL (150-450) 03/29/23 01:40 MPV 8.0 fl (6.3-10.7) 03/29/23 01:40 Neut % (Auto) 46.8 % (.) 03/29/23 01:40 Lymph % (Auto) 42.8 % (.) 03/29/23 01:40 [place] % (Auto) 7.3 % (.) 03/29/23 01:40 Eos % (Auto) 1.8 % (.) 03/29/23 01:40 Baso % (Auto) 1.3 % (.) 03/29/23 01:40 Nucleat RBC Rel Count 0.1 /100 WBC (0-0.5) 03/29/23 01:40 Neut # (Auto) 3.5 x10E3/uL (1.8-7.7) 03/29/23 01:40 Lymph # (Auto) 3.2 x10E3/uL (1.00-4.8) 03/29/23 01:40 [place] # (Auto) 0.6 x10E3/uL (0.0-0.8) 03/29/23 01:40 Eos # (Auto) 0.1 x10E3/uL (0.0-0.45) 03/29/23 01:40 Baso # (Auto) 0.1 x10E3/uL (0.0-0.2) 03/29/23 01:40 PHA Creatinine Clear 134.47 03/29/23 01:40 PHA Creatinine Clear Cancelled 03/29/23 01:40 Sodium 138 mmol/L (136-145) 03/29/23 01:40 Sodium Cancelled 03/29/23 01:40 Potassium 3.6 mmol/L (3.5-5.1) 03/29/23 01:40 Potassium Cancelled 03/29/23 01:40 Chloride 107 mmol/L (98-107) 03/29/23 01:40 Chloride Cancelled 03/29/23 01:40 Carbon Dioxide 22.2 mmol/L (21.0-31.0) 03/29/23 01:40 Carbon Dioxide Cancelled 03/29/23 01:40 Anion Gap 12.4 mEq/L (6.0-15.0) 03/29/23 01:40 Anion Gap Cancelled 03/29/23 01:40 BUN 6 mg/dL (7-25) L 03/29/23 01:40 BUN Cancelled 03/29/23 01:40 Creatinine 0.63 mg/dL (0.60-1.20) 03/29/23 01:40 Creatinine Cancelled 03/29/23 01:40 Est GFR (CKD-EPI) > 60.0 mL/Min 03/29/23 01:40 Est GFR (CKD-EPI) Cancelled 03/29/23 01:40 Glucose 90 mg/dL (70-100) 03/29/23 01:40 Glucose Cancelled 03/29/23 01:40 Calcium 8.9 mg/dL (8.6-10.3) 03/29/23 01:40 Calcium Cancelled 03/29/23 01:40 Total Bilirubin 0.3 mg/dl (0.3-1.0) 03/29/23 01:40 Total Bilirubin Cancelled 03/29/23 01:40 Direct Bilirubin 0.10 mg/dL (0.03-0.18) 03/29/23 01:40 Direct Bilirubin Cancelled 03/29/23 01:40 Indirect Bilirubin 0.2 mg/dL 03/29/23 01:40 Indirect Bilirubin Cancelled 03/29/23 01:40 AST 19 U/L (13-39) 03/29/23 01:40 AST Cancelled 03/29/23 01:40 ALT 14 U/L (7-52) 03/29/23 01:40 ALT Cancelled 03/29/23 01:40 Alkaline Phosphatase 61 U/L (34-104) 03/29/23 01:40 Alkaline Phosphatase Cancelled 03/29/23 01:40 Total Protein 6.8 gm/dL (6.4-8.9) 03/29/23 01:40 Total Protein Cancelled 03/29/23 01:40 Albumin 4.0 gm/dL (3.5-5.7) 03/29/23 01:40 Albumin Cancelled 03/29/23 01:40 Globulin 2.8 gm/dL 03/29/23 01:40 Globulin Cancelled 03/29/23 01:40 Albumin/Globulin Ratio 1.4 03/29/23 01:40 Albumin/Globulin Ratio Cancelled 03/29/23 01:40 Lipase 30.0 U/L (11.0-82.0) 03/29/23 01:40 Lipase Cancelled 03/29/23 01:40 Urine Color Yellow (Yellow) 03/29/23 02:53 Urine Appearance Clear (Clear) 03/29/23 02:53 Urine pH 7.5 (5.0-9.0) 03/29/23 02:53 Ur Specific [place] 1.003 (1.001-1.030) 03/29/23 02:53 Urine Protein Negative mg/dL (Negative) 03/29/23 02:53 Urine Glucose (UA) Normal mg/dL (Normal) 03/29/23 02:53 Urine Ketones Negative (Negative) 03/29/23 02:53 Urine Occult Blood Negative (Negative) 03/29/23 02:53 Urine Nitrite Negative (Negative) 03/29/23 02:53 Urine Bilirubin Negative (Negative) 03/29/23 02:53 Urine Urobilinogen Normal mg/dL (Normal) 03/29/23 02:53 Ur Leukocyte Esterase Negative (Negative) 03/29/23 02:53 Urine HCG, Qual Negative 03/29/23 02:53 Assessment & Plan Assessment/Plan (1) Abdominal pain: Plan 1. Intractable left lower abdominal pain requiring repeated doses of IV opioid with ultrasound showing ovarian cyst, with underlying history of endometriosis - previously had multiple intervention due to cyst and endometriosis For now continue pain management, patient is afebrile, without leukocytosis, however she does have tachycardia We will consult PRODUCTION INSPECTOR Check lactic acid 2. Microcytic iron deficiency anemia, previously she did have ruptured hemorrhagic cyst with bleeding Recheck H&H 3. DVT prophylaxis SCDs IP vs OBS Justification Based on differential dx, clinical care plan, and risk of adverse events, if untreated, in my clinical judgement this patient requires an acute care setting as: INPATIENT because of an expectation of an over 2 midnight stay. Estimated length of stay (# of days): 3 Documented By: Megan Muniz MD 03/29/23721 Signed By: <Electronically signed by Megan Muniz MD> 03/29/23728 [facility] Work Phone: [phone]) 702-683508-02-2023 Evaluation note* Encounter Date Diagnosis Assessment Notes Treatment Notes Treatment Clinical Notes Jan, Anxiety (ICD-10 - F41.9) She does continue to use and benefit from the above medications. I will decrease the dose of Xanax back to 0.25 MG anticipating that there is no longer a shortage on this dose. She voices understanding of this. She is to call for refills on the Xanax in between visits. An OARRS report was printed and reviewed, no discrepancies noted. Frequent appointments needed due to addiction potential of medication. Pain inventory sheet completed and reviewed if opiod medication given. Pain contract is on file if pertinent. Patient will have office visits every three months for evaluation or sooner if needed. I discussed addiction potential of medication with the patient. Discussed with the patient and provided a treatment plan including the use of non-opiod analgesics and non-pharmacologica l intervention with patient if treated for pain. We have discussed realistic benefits and known risks of opiod/controlled therapy and the expected benefits for both pain and function. These benefits outweigh the risks. Patient has been counselled on the dangers of combining opiods/controlled prescriptions with alcohol or other sedatives and counseled on the safe storage and disposal of opiods/controlled prescriptions. Do not drive or operate heavy machinery after taking opiod/controlled medication. I have verified that no current substance abuse treatments are being prescribed. Jan, Greater trochanteric bursitis of right hip (ICD-10 - M70.61) She voices that her right hip has been bothering her, but now she cannot even lay on that side when she sleeps. I suspect she has bursitis which can become inflamed and cause pain. I did advise her that an injection can be given in the bursa sac to provide her with relief. She would need to see an leasing specialist for this. She is agreeable to a referral. Jan, Tachycardia (ICD-10 - R00.0) She was unable to tolerate Atenolol. She voices that Dr. Cantu did not try anything else besides the Atenolol and she never returned to see Dr. Cantu. She has not gotten any high (180's) readings. She is able to work when she does have an episode of tachycardia. She voices that no matter how much fluid she drinks she does not notice her heart rate go down, if she is bandar it may go down to the 80's. I did recommend that she contact Dr. Cantu if this continues. Jan, Iron deficiency anemia (ICD-10 - D50.9) She voices that she has been craving ice so she is going to call and schedule an appointment to see Dr. Castillo again. [facility] Other 06-29-2023 Evaluation note* Encounter Date Diagnosis Assessment Notes Treatment Notes Treatment Clinical Notes Nov, Acute sinusitis (ICD-10 - J01.90) Nov, Cough (ICD-10 - R05.9) [facility] Other 05-01-2023 Evaluation note* Encounter Date Diagnosis Assessment Notes Treatment Notes Treatment Clinical Notes October, Anxiety (ICD-10 - F41.9) She does continue to use and benefit from the Xanax. She is in need of a refill today. She is doing well on the Celexa and feels the dose is adequate. Frequent appointments needed due to addiction potential of the medication. She can call for refills on the medication but needs to be seen again in three months. Side effects/risks/benef its of medication were reviewed. An OARRS report was reviewed, no discrepancies noted. Rx was called into [facility], spoke with Chad TOWNSEND, the Xanax 0.25 MG tablets are out of stock currently so her dose was increased to 0.5 MG and she was instructed to take 1/2 tablet q8-12 hours as needed. Only 12 tablets were called in. Pt voiced understanding when notified of this change. October, Other 3:17 PM - 3:23 PM [facility] Other 04-12-2023 Evaluation note* Encounter Date Diagnosis Assessment Notes Treatment Notes Treatment Clinical Notes Sep, Fever (ICD-10 - R50.9) Push fluids, rest. Tylenol if needed. Sep, Acute sinusitis (ICD-10 - J01.90) Will treat with an antibiotic. Guidance is given on how to take the medication. She is encouraged to eat yogurt daily while on ATB to prevent GI upset. Rest, push fluids. Sep, Cough (ICD-10 - R05.9) An OARRS report was reviewed, no discrepancies noted. Do not mix with alcohol or drive after taking. Side effects/risks/benefi ts of medication were reviewed. Sep, Other 12:46 PM - 12:51 PM [facility] Other 01-30-2023 Evaluation note* Encounter Date Diagnosis Assessment Notes Treatment Notes Treatment Clinical Notes Jun, Anxiety (ICD-10 - F41.9) [facility] Other 01-30-2023 Evaluation note* Encounter Date Diagnosis Assessment Notes Treatment Notes Treatment Clinical Notes Jun, Tachycardia (ICD-10 - R00.0) She has not seen Dr. Cantu since last seen here. She voices that her heart rate is still high at times. 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 She is not taking the Atenolol any longer. We discussed her getting into better condition which would be beneficial for her heart, I did recommend that she do something that keeps her heart rate up for thirty minutes six days a week. She voices that she does not own any equipment but can walk on her basement stairs and enjoys exercise. She will see what she can do on her own. Jun, Iron deficiency anemia (ICD-10 - D50.9) She had an iron infusion in the fall of 2021. She was following with Dr. Castillo and has an appointment to see him in Jul or August (2022). I did recommend that she follow up with him. We discussed that she wasn't technically anemic on the ER lab from Apr (2021) but she was microcytic. Jun, Anxiety (ICD-10 - F41.9) She only uses the Xanax as needed and it works well for her when she needs it. An OARRS report was reviewed no discrepancies noted. The Celexa is working well for her and she feels the dose is adequate. Frequent appointments needed due to addiction potential of medication. I will see her back in three months. Side effects/risks/benefi ts of medication were reviewed. [facility] Other 12-21-2022 Evaluation note* Encounter Date Diagnosis Assessment Notes Treatment Notes Treatment Clinical Notes May, Cough (ICD-10 - R05.9) She did request cough medication today. An OARRS report reviewed, no discrepancies noted. No driving or drinking alcohol after taking this medication. Side effects/risks/benefi ts of medication were reviewed. May, Acute sinusitis (ICD-10 - J01.90) She voices that she has tried OTC medications (Mucinex) and it has not worked. She has been sick for two weeks. No body aches. I will treat her with an antibiotic. Guidance is given on how to take the medication. She is to eat yogurt daily while on ATB to prevent GI upset. Rest, push fluids. She did request liquid medication. May, Other 3:27 PM - 3:32 PM [facility] Other 11-18-2022 Miscellaneous Notes* Telephone Encounter - Tabby Steele Ma - 04/30/2022 2:25 PM EST CMP if needed. Tabby Steele Ma [facility]* Encounter Date Diagnosis Assessment Notes Treatment Notes Treatment Clinical Notes Mar, Anxiety (ICD-10 - F41.9) [facility] Other 10-31-2022 Evaluation note* Encounter Date Diagnosis Assessment Notes Treatment Notes Treatment Clinical Notes Mar, Anxiety (ICD-10 - F41.9) She takes her Xanax maybe 1-2 times per week. An OARRS report was reviewed no discrepancies noted. She does continue to use and benefit from the medication. Frequent appointments needed due to addiction potential of the medication. I will see her back in three months. Side effects/risks/benefi ts of medication were reviewed. Mar, Tachycardia (ICD-10 - R00.0) She still has not seen Dr. Cantu since she was last seen here. She voices that Dr. Cantu was going to keep her on Atenolol but she was getting dizzy on the medicine so she stopped taking it and then had not been back to see Dr. Cantu. I did independently review her holter monitor results with her today. She can tell when her heart is beating fast. Mar, Iron deficiency anemia (ICD-10 - D50.9) She continues to follow with Dr. Castillo and has one more iron infusion before she will have her iron rechecked. She feels better since she has been getting the infusions. Mar, Other She voices that next on her to do list is to get her liver ultrasound done and then return to see her PRODUCTION INSPECTOR [facility] because she feel she has another ovarian cyst. [facility] Other 10-28-2022 Miscellaneous Notes* Allied Health - Donald Villegas Therapist - 04/09/2022 2:21 PM EDT ART THERAPY NOTE SERVICE DATE: 04/09/2022 SERVICE TIME: 1:30 Referred By: self Reason for Referral: Introduction to art therapy services Session Type: Initial Time Spent (minutes): 30 Goals: Coping Through Diversion Interventions: Response Before After Mood Anxiety Pain Scale: 0 = No pain/anxiety 10 = Worst possible pain/anxiety Response: Patient's Verbal Response: Positive Family Present: No Outcome: Goals: Met Follow Up: Will Follow Up as Able COMMENTS: Patient was introduced to art therapy services and given packet of mandalas for mindfulness at home. Patient indicated interest in art making for her next infusion date. Will follow up then. SIGNATURE: Donald Villegas PATIENT NAME: Livia Noyola DATE: April 09, 2022 TIME: 2:21 PM PAGER/CONTACT #: documented in this encounterC[facility]10-[facility] Miscellaneous Notes* Telephone Encounter - MARY Narvaez - 03/15/2022 12:04 PM EDT Patient appears on the First Time Treatment List for a non-oncology treatment. No psychosocial assessment is indicated. JANNA Narvaez documented in this encounterC[facility]09-28-[facility]22 NoteHNO ID: [id number] Author: Gil Ni APRN.PIOTR Service: ? Author Type: Nurse Practitioner Type: Progress Notes Filed: 03/10/2022 2:25 PM Note Text: NAME: Livia Noyola NO.: [id number] DATE OF SERVICE: March 10, 2022 (Elements copied from Dr. Grupo Reid note dated October 27, 2020, have been reviewed and updated where appropriate, and all reflect current assessment and medical decision making during today's encounter, March 10, 2022) Referring Provider: Dr. Jennifer Duran Additional Clinicians involved in Livia Noyola's care: CC: Iron deficiency anemia ASSESSMENT: 37 yo with poor oral iron absorption and a history of heavy uterine bleeding and subsequent iron deficiency. She has failed oral iron replacement. She has microcytic indices MCV 75, compensatory elevation of Platelets, with markedly elevated TIBC, decreased iron and Ferritin. PLAN: 1. Iron infusion, Venofer 300 mg, Weekly x3 doses. 2. Follow up in 8 weeks repeat CBC. TREATMENT TO DATE: 2. 1. HPI: Updated Visit, March 10, 2022: Livia Noyola returns for follow-up. She recently saw her PCP, Dr. Duran, and was found to have abnormal labs including a low hemoglobin and low iron studies. She continues to have heavy monthly menses lasting on average 6 days. She denies any other signs of blood loss. Her biggest complaint is fatigue. 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 She works 7 PM to 7 AM. Initial Visit, October 27, 2020: Livia Noyola presents today Hematology and Oncology evaluation. 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 In addition to this oral iron makes her extremely nauseated and she is having difficulty staying on it. She is a prior history of endometriosis and heavy uterine bleeding with subsequent iron deficiency. Recent laboratories from [facility] October 04, 2020 show hemoglobin of 11.6 but microcytic indices with an MCV of 75.3. Platelets show a compensatory increase of 452 and RDW is widened at 16.5%. Her corresponding iron studies show ferritin of 4.6 TIBC which is elevated at 465 and iron saturation of 6%. Chemistries demonstrate no clinically significant abnormalities. She has mild fatigue but is otherwise without significant complaints. She lives with her and stepson but has no children of her own. This does seem to affect her emotionally and I have recommended that she consider talking to her employee assistance program for help. REVIEW OF SYSTEMS Per HPI and otherwise negative by full review of organ systems. ECOG PERFORMANCE STATUS: 0 PHYSICAL EXAMINATION: Vitals: BP 130/75 Pulse 95 Temp (Src) 97.9 (Temporal) Resp 16 Ht 5' 5 (1.65m) Wt 183 lb 12.8 oz (83.4kg) SpO2 100% LMP 06/17/2018 BMI 30.59 kg/(m2). Body surface area is 1.96 meters squared. Exam limited to gross visualization where appropriate due to COVID-19. Gen.: This is an age-appropriate patient in no acute distress. Head: Appears atraumatic with no visible lesions. Eyes: Pupils equally round and reactive to light, extraocular muscles are intact. Neck: Supple. Mouth: Mucous membranes appeared to be moist. Respiratory: Appears to be respiring comfortably. Neurologic: Nonfocal to gross visualization. Alert and oriented ?3. Psychiatric: No evidence of inappropriate anxiety or depression. Skin: Visible areas of skin without rash, lesions, wounds or petechiae. ALLERGIES: ALLERGIES Allergen Reactions Morphine Other: See Comments Spasms MEDICATIONS: ALPRAZolam (XANAX) 0.25 mg tablet TAKE 1 TABLET BY MOUTH EVERY 8 TO 12 HOURS NEEDED FOR ANXIETY atenolol (TENORMIN) 25 mg tablet citalopram (CELEXA) 20 mg tablet Take 20 mg by mouth once daily. diphenhydrAMINE (BENADRYL) 25 mg capsule Take 25 mg by mouth every 6 hours as needed. Multivitamins-Iron tab Take 1 tablet by mouth once daily. ibuprofen (MOTRIN) 600 mg tablet Take 1 tablet by mouth every 6 hours. 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 PAST MEDICAL HISTORY Diagnosis Date Anemia 2020 Endometriosis Fibroid Iron deficiency anemia due to chronic blood loss 10/27/2020 Malabsorption of iron 10/27/2020 Ovarian cyst PAST SURGICAL HISTORY Procedure Laterality Date PAST SURGICAL HISTORY OF 2014 removal of ovarian cysts, fibroid and endometriosis PAST SURGICAL HISTORY OF Emergency surgery on Lt ovarian cyst torsion and removal ovarian cyst (more content not included)...[facility]09-28-2022 History of Present illness Narrative* Gil iN APRN.FLASH WELDER - 03/10/2022 2:00 PM EDT Images from the original note were not included. NAME: Livia Noyola NO.: [id number] DATE OF SERVICE: March 10, 2022 (Elements copied from Dr. Grupo Reid note dated October 27, 2020, have been reviewed and updated where appropriate, and all reflect current assessment and medical decision making during today's encounter, March 10, 2022) Referring Provider: Dr. Jennifer Duran Additional Clinicians involved in Livia Noyola's care: CC: Iron deficiency anemia ASSESSMENT: 37 yo with poor oral iron absorption and a history of heavy uterine bleeding and subsequent iron deficiency. She has failed oral iron replacement. She has microcytic indices MCV 75, compensatory elevation of Platelets, with markedly elevated TIBC, decreased iron and Ferritin. PLAN: 1. Iron infusion, Venofer 300 mg, Weekly x3 doses. 2. Follow up in 8 weeks repeat CBC. TREATMENT TO DATE: 2. 1. HPI: Updated Visit, March 10, 2022: Livia Noyola returns for follow-up. She recently saw her PCP, Dr. Duran, and was found to have abnormal labs including a low hemoglobin and low iron studies. She continues to have heavy monthly menses lasting on average 6 days. She denies any other signs of blood loss. Her biggest complaint is fatigue. 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 She works 7 PM to 7 AM. Initial Visit, October 27, 2020: Livia Noyola presents today Hematology and Oncology evaluation. 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 In addition to this oral iron makes her extremely nauseated and she is having difficulty staying on it. She is a prior history of endometriosis and heavy uterine bleeding with subsequent iron deficiency. Recent laboratories from [facility] October 04, 2020 show hemoglobin of11.6 but microcytic indices with an MCV of 75.3. Platelets show a compensatory increase of 452 and RDW is widened at 16.5%. Her corresponding iron studies show ferritin of 4.6 TIBC which is elevated at 465 and iron saturation of 6%. Chemistries demonstrate no clinically significant abnormalities. She has mild fatigue but is otherwise without significant complaints. She lives with her and stepson but has no children of her own. This does seem to affect heremotionally and I have recommended that she consider talking to her employee assistance program forhelp. REVIEW OF SYSTEMS Per HPI and otherwise negative by full review of organ systems. ECOG PERFORMANCE STATUS: 0 PHYSICAL EXAMINATION: Vitals: BP 130/75 Pulse 95 Temp (Src) 97.9 (Temporal) Resp 16 Ht 5' 5 (1.65m) Wt 183 lb 12.8 oz (83.4kg) SpO2 100% LMP 06/17/2018 BMI 30.59 kg/(m^2). Body surface area is 1.96 meters squared. Exam limited to gross visualization where appropriate due to COVID-19. Gen.: This is an age-appropriate patient in no acute distress. Head: Appears atraumatic with no visible lesions. Eyes: Pupils equally round and reactive to light, extraocular muscles are intact. Neck: Supple. Mouth: Mucous membranes appeared to be moist. Respiratory: Appears to be respiring comfortably. Neurologic: Nonfocal to gross visualization. Alert and oriented 3. Psychiatric: No evidence of inappropriate anxiety or depression. Skin: Visible areas of skin without rash, lesions, wounds or petechiae. ALLERGIES: ALLERGIES Allergen Reactions Morphine Other: See Comments Spasms MEDICATIONS: ALPRAZolam (XANAX) 0.25 mg tablet TAKE 1 TABLET BY MOUTH EVERY 8 TO 12 HOURS NEEDED FOR ANXIETY atenolol (TENORMIN) 25 mg tablet citalopram (CELEXA) 20 mg tablet Take 20 mg by mouth once daily. diphenhydrAMINE (BENADRYL) 25 mg capsule Take 25 mg by mouth every 6 hours as needed. Multivitamins-Iron tab Take 1 tablet by mouth once daily. ibuprofen (MOTRIN) 600 mg tablet Take 1 tablet by mouth every 6 hours. 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 PAST MEDICAL HISTORY Diagnosis Date Anemia 2020 Endometriosis Fibroid Iron deficiency anemia due to chronic blood loss 10/27/2020 Malabsorption of iron 10/27/2020 Ovarian cyst PAST SURGICAL HISTORY Procedure Laterality Date PAST SURGICAL HISTORY OF 2013 removal of ovarian cysts, fibroid and endometriosis PAST SURGICAL HISTORY OF Emergency surgery on Lt ovarian cyst torsion and removal ovarian cyst PAST SURGICAL HISTORY OF 07/06/2018 LAPAROSCOPY, SURGICAL; WITH FULGURATION OR EXCISION OF LESIONS OF THE OVARY, PELVIC VISCERA, OR PERITONEAL SURFACE BY ANY METHOD REMOVAL GALLBLADDER Social History Tobacco Use Smoking status: Never Smokeless tobacco: Never Substance Use Topics Alcohol use: Yes Comment: socially Drug use: No FAMILY HISTORY Problem Relation Age of Onset Diabetes Mother Hypertension Mother Hyperlipidemia Mother Diabetes Father Hypertension Father Hyperlipidemia Father Heart Father bypass surgery, stents, PR Gil Ni APRN.CNP [facility] [place], [place] CC: Dr. Jennifer Duran [address] [place] [id number] I spent a total of 30 minutes on the date of the service which included preparing to see the patient, [id number] patient care, completing clinical documentation, obtaining and/or reviewing separately obtained history, performing a medically appropriate examination, counseling and educating the pat ient/family/caregiver, ordering medications, tests, or procedures, independently interpreting results (not separately reported), and communicating results to the patient/family/caregiver. documented in this encounterC[facility]09-[facility]-2022 Miscellaneous Notes* Telephone Encounter - Meaghan Ordonez - 02/18/2022 3:14 PM EDT Patient has an appt on 02/23. Would you like labs? documented in this encounterC[facility]09-06-2022 Evaluation note* Encounter Date Diagnosis Assessment Notes Treatment Notes Treatment Clinical Notes Feb, Iron deficiency anemia (ICD-10 - D50.9) Feb, Elevated liver enzymes (ICD-10 - R74.8) [facility] Other 07-28-2022 Evaluation note* Encounter Date Diagnosis Assessment Notes Treatment Notes Treatment Clinical Notes Dec, Anxiety (ICD-10 - F41.9) [facility] Other 06-24-2022 Hospital Discharge instructions Patient Education 12/04/2021 13:59:16 Impetigo, Adult Impetigo, Adult Impetigo is an infection of the skin. It commonly occurs in young children, but it can also occur in adults. The infection causes itchy blisters and sores that produce brownish-yellow fluid. As the fluid dries, it forms a thick, honey- colored crust. These skin changes usually occur on the face, butthey can also affect other areas of the body. Impetigo usually goes away in 7 10 days with treatment. What are the causes? This condition is caused by two types of bacteria. It may be caused by staphylococci or streptococci bacteria. These bacteria cause impetigo when they get under the surface of the skin. This often happens after some damage to the skin, such as: Cuts, scrapes, or scratches. Rashes. Insect bites, especially when you scratch the area of a bite. Chickenpox or other illnesses that cause open skin sores. Nail biting or chewing. Impetigo can spread easily from one person to another (is contagious). It may be spread through close skin contact or by sharing towels, clothing, or other items that an infected person has touched. What increases the risk? The following factors may make you more likely to develop this condition: Playing sports that include [id number] contact with others. Having a skin condition with open sores, such as chickenpox. Having diabetes. Having a weak body defense system (immune system). Having many skin cuts or scrapes. Living in an area that has high humidity levels. Having poor hygiene. Having high levels of staphylococci in your nose. What are the signs or symptoms? The main symptom of this condition is small blisters, often on the face around the mouth and nose. In time, the blisters break open and turn into tiny sores (lesions) with a yellow crust. In some cases, the blisters cause itching or burning. With scratching, irritation, or lack of treatment, these small lesions may get larger. Other possible symptoms include: Larger blisters. Pus. Swollen lymph glands. Scratching the affected area can cause impetigo to spread to other parts of the body. The bacteria can get under the fingernails and spread when you touch another area of your skin. How is this diagnosed? This condition is usually diagnosed during a physical exam. A skin sample or a sample of fluid froma blister may be taken for lab tests that involve growing bacteria (culture test). Lab tests can help to confirm the diagnosis or help to determine the best treatment. How is this treated? Treatment for this condition depends on the severity of the condition: Mild impetigo can be treated with prescription antibiotic cream. Oral antibiotic medicine may be used in more severe cases. Medicines that reduce itchiness (antihistamines)may also be used. Follow these instructions at home: Medicines Take [id number] and prescription medicines only as told by your health care provider. Apply or take your antibiotic as told by your health care provider. Do not stop using the antibiotic even if your condition improves. General instructions To help prevent impetigo from spreading to other body areas: ?Keep your fingernails short and clean. ?Do not scratch the blisters or sores. ?Cover infected areas, if necessary, to keep from scratching. ?Wash your hands often with soap and warm water. Before applying antibiotic cream or ointment, you should: ?Gently wash the infected areas with antibacterial soap and warm water. ?Soak crusted areas in warm, soapy water using antibacterial soap. ?Gently rub the areas to remove crusts. Do not scrub. Do not share towels. Wash your clothing and bedsheets in warm water that is 140 F (60 C) or warmer. Stay home until you have used an antibiotic cream for 48 hours (2 days) or an oral antibiotic medicine for 24 hours (1 day). You should only return to work and activities with other people if your skin shows significant improvement. ?You may return to contact sports after you have used antibiotic medicine for 72 hours (3 days). Keep all follow-up visits as told by your health care provider. This is important. How is this prevented? Wash your hands often with soap and warm water. Do not share towels, washcloths, clothing, bedding, or razors. Keep your fingernails short. Keep any cuts, scrapes, bug bites, or rashes clean and covered. Use insect repellent to prevent bug bites. Contact a health care provider if: You develop more blisters or sores even with treatment. Other family members get sores. Your skin sores are not improving after 72 hours (3 days) of treatment. You have a fever. Get help right away if: You see spreading redness or swelling of the skin around your sores. You see red streaks coming from your sores. You develop a sore throat. The area around your rash becomes warm, red, or tender to the touch. You have dark, reddish-brown urine. You do not urinate often or you urinate small amounts. You are very tired (lethargic). You have swelling in the face, hands, or feet. Summary Impetigo is a skin infection that causes itchy blisters and sores that produce brownish-yellow fluid. As the fluid dries, it forms a crust. This condition is caused by staphylococci or streptococci bacteria. These bacteria cause impetigo when they get under the surface of the skin, such as through cuts, rashes, bug bites, or open sores. Treatment for this condition may include antibiotic ointment or oral antibiotics. To help prevent impetigo from spreading to other body areas, make sure you keep your fingernails short, avoid scratching, cover any blisters, and wash your hands often. If you have impetigo, stay home until you have used an antibiotic cream for 48 hours (2 days) or anoral antibiotic medicine for 24 hours (1 day). You should only return to work and activities with other people if your skin shows significant improvement. This information is not intended to replace advice given to you by your health care provider. Make sure you discuss any questions you have with your health care provider. Document Released: 06/20/2015 Document Revised: 07/10/2019 Document Reviewed: 06/21/2017 [facility] Patient Education 2020 [employer]. 12/04/2021 13:59:11 Sinusitis, Adult Sinusitis, Adult Sinusitis is inflammation of your sinuses. Sinuses are hollow spaces in the bones around your face.Your sinuses are located: Around your eyes. In the middle of your forehead. Behind your nose. In your cheekbones. Mucus normally drains out of your sinuses. When your nasal tissues become inflamed or swollen, mucus can become trapped or blocked. This allows bacteria, viruses, and fungi to grow, which leads to infection. Most infections of the sinuses are caused by a virus. Sinusitis can develop quickly. It can last for up to 4 weeks (acute) or for more than 12 weeks (chronic). Sinusitis often develops after a cold. What are the causes? This condition is caused by anything that creates swelling in the sinuses or stops mucus from draining. This includes: Allergies. Asthma. Infection from bacteria or viruses. Deformities or blockages in your nose or sinuses. Abnormal growths in the nose (nasal polyps). Pollutants, such as chemicals or irritants in the air. Infection from fungi (rare). What increases the risk? You are more likely to develop this condition if you: Have a weak body defense system (immune system). Do a lot of swimming or diving. Overuse nasal sprays. Smoke. What are the signs or symptoms? The main symptoms of this condition are pain and a feeling of pressure around the affected sinuses.Other symptoms include: Stuffy nose or congestion. Thick drainage from your nose. Swelling and warmth over the affected sinuses. Headache. Upper toothache. A cough that may get worse at night. Extra mucus that collects in the throat or the back of the nose (postnasal drip). Decreased sense of smell and taste. Fatigue. A fever. Sore throat. Bad breath. How is this diagnosed? This condition is diagnosed based on: Your symptoms. Your medical history. A physical exam. Tests to find out if your condition is acute or chronic. This may include: ?Checking your nose for nasal polyps. ?Viewing your sinuses using a device that has a light (endoscope). ?Testing for allergies or bacteria. ?Imaging tests, such as an MRI or CT scan. In rare cases, a bone biopsy may be done to rule out more serious types of fungal sinus disease. How is this treated? Treatment for sinusitis depends on the cause and whether your condition is chronic or acute. If caused by a virus, your symptoms should go away on their own within 10 days. You may be given medicines to relieve symptoms. They include: ?Medicines that shrink swollen nasal passages (topical intranasal decongestants). ?Medicines that treat allergies (antihistamines). ?A spray that eases inflammation of the nostrils (topical intranasal corticosteroids). ?Rinses that help get rid of thick mucus in your nose (nasal saline washes). If caused by bacteria, your health care provider may recommend waiting to see if your symptoms improve. Most bacterial infections will get better without antibiotic medicine. You may be given antibiotics if you have: ?A severe infection. ?A weak immune system. If caused by narrow nasal passages or nasal polyps, you may need to have surgery. Follow these instructions at home: Medicines Take, use, or apply anzz-usp-newknui and prescription medicines only as told by your health care provider. These may include nasal sprays. If you were prescribed an antibiotic medicine, take it as told by your health care provider. Do notstop taking the antibiotic even if you start to feel better. Hydrate and humidify Drink enough fluid to keep your urine pale yellow. Staying hydrated will help to thin your mucus. Use a cool mist humidifier to keep the humidity level in your home above 50%. Inhale steam for 10 15 minutes, 3 4 times a day, or as told by your health care provider. You can do this in the bathroom while a hot shower is running. Limit your exposure to cool or dry air. Rest Rest as much as possible. Sleep with your head raised (elevated). Make sure you get enough sleep each night. General instructions Apply a warm, moist washcloth to your face 3 4 times a day or as told by your health care provider.This will help with discomfort. Wash your hands often with soap and water to reduce your exposure to germs. If soap and water are not available, use hand molder closed molds. Do not smoke. Avoid being around people who are smoking (secondhand smoke). Keep all follow-up visits as told by your health care provider. This is important. Contact a health care provider if: You have a fever. Your symptoms get worse. Your symptoms do not improve within 10 days. Get help right away if: You have a severe headache. You have persistent vomiting. You have severe pain or swelling around your face or eyes. You have vision problems. You develop confusion. Your neck is stiff. You have trouble breathing. Summary Sinusitis is soreness and inflammation of your sinuses. Sinuses are hollow spaces in the bones around your face. This condition is caused by nasal tissues that become inflamed or swollen. The swelling traps or blocks the flow of mucus. This allows bacteria, viruses, and fungi to grow, which leads to infection. If you were prescribed an antibiotic medicine, take it as told by your health care provider. Do notstop taking the antibiotic even if you start to feel better. Keep all follow-up visits as told by your health care provider. This is important. This information is not intended to replace advice given to you by your health care provider. Make sure you discuss any questions you have with your health care provider. Document Released: 05/30/2006 Document Revised: 10/30/2018 Document Reviewed: 10/30/2018 [facility] Patient Education 2020 [employer]. 12/04/2021 13:59:10 BMI for Adults BMI for Adults Body mass index (BMI) is a number that is calculated from a person's weight and height. BMI may help to estimate how much of a person's weight is composed of fat. BMI can help identify those who may be at higher risk for certain medical problems. How is BMI used with adults? BMI is used as a screening tool to identify possible weight problems. It is used to check whether aperson is obese, overweight, healthy weight, or underweight. How is BMI calculated? BMI measures your weight and compares it to your height. This can be done either in [place] ([place] or metric measurements. Note that charts are available to help you find your BMI quickly and easily without having to do these calculations yourself. To calculate your BMI in [place] measurements, your health care provider will: 1.Measure your weight in pounds (lb). 2.Multiply the number of pounds by 703. For example, for a person who weighs 180 lb, multiply that number by 703, which equals 126,540. 3.Measure your height in inches (in). Then multiply that number by itself to get a measurement called inches squared. For example, for a person who is 70 in tall, the inches squared measurement is 70 in x 70 in, which equals 4900 inches squared. 4.Divide the total from Step 2 (number of lb x 703) by the total from Step 3 (inches squared): 126,540 4900 = 25.8. This is your BMI. To calculate your BMI in metric measurements, your health care provider will: 1.Measure your weight in kilograms (kg). 2.Measure your height in meters (m). Then multiply that number by itself to get a measurement called meters squared. For example, for a person who is 1.75 m tall, the meters squared measurement is 1.75 m x 1.75 m, which is equal to 3.1 meters squared. 3.Divide the number of kilograms (your weight) by the meters squared number. In this example: 70 3.1 = 22.6. This is your BMI. How is BMI interpreted? To interpret your results, your health care provider will use BMI charts to identify whether you are underweight, normal weight, overweight, or obese. The following guidelines will be used: Underweight: BMI less than 18.5. Normal weight: BMI between 18.5 and 24.9. Overweight: BMI between 25 and 29.9. Obese: BMI of 30 and above. Please note: Weight includes both fat and muscle, so someone with a muscular build, such as an athlete, may havea BMI that is higher than 24.9. In cases like these, BMI is not an accurate measure of body fat. To determine if excess body fat is the cause of a BMI of 25 or higher, further assessments may needto be done by a health care provider. BMI is usually interpreted in the same way for men and women. Why is BMI a useful tool? BMI is useful in two ways: Identifying a weight problem that may be related to a medical condition, or that may increase the risk for medical problems. Promoting lifestyle and diet changes in order to reach a healthy weight. Summary Body mass index (BMI) is a number that is calculated from a person's weight and height. BMI may help to estimate how much of a person's weight is composed of fat. BMI can help identify those who may be at higher risk for certain medical problems. BMI can be measured using Dominican measurements or metric measurements. To interpret your results, your health care provider will use BMI charts to identify whether you are underweight, normal weight, overweight, or obese. This information is not intended to replace advice given to you by your health care provider. Make sure you discuss any questions you have with your health care provider. Document Released: 02/08/2005 Document Revised: 05/12/2018 Document Reviewed: 04/12/2018 [facility] Patient Education 2019 [employer]. [facility] 05-06-2022 Evaluation note* Encounter Date Diagnosis Assessment Notes Treatment Notes Treatment Clinical Notes October, Acute sinusitis (ICD-10 - J01.90) She voices that she thought she had allergies but then a few days later she was full blown sick . She is bringing out green nasal drainage. I will treat her with Augmentin but she did request liquid form due to the size of the tablets. Guidance is given on how to take the medication. She may have loose stools but if she develops severe diarrhea then she needs to let me know right away. Eat yogurt daily while on ATB to prevent GI upset. Rest, push fluids. October, Cough (ICD-10 - R05.9) She saw Dr. Donald and he added Symbicort which did help her symptoms a little bit, she continued to have a lingering cough but she felt that it wasn't as bad. She has an appointment with him next week. She would like a refill on Hycodan. Side effects/risks/benefi ts of medication were reviewed. Do not drink alcohol or drive after taking. Do not take Xanax within 12 hours of taking the Hycodan. October, Anxiety (ICD-10 - F41.9) An OARRS report was reviewed no discrepancies noted. Side effects/risks/benefi ts of medication were reviewed. Frequent appointments needed due to addiction potential of medication. She does continue to use and benefit from the Xanax. I will see her back in three months. October, Other 8:28 AM - 8:35 AM [facility] Other 03-01-2022 Evaluation note* Encounter Date Diagnosis Assessment Notes Treatment Notes Treatment Clinical Notes Aug, Cough (ICD-10 - R05) [facility] Other 02-21-2022 Evaluation note* Encounter Date Diagnosis Assessment Notes Treatment Notes Treatment Clinical Notes Jul, Cough (ICD-10 - R05.9) Will treat with Augmentin. Guidance is given on how to take the medication. She is encouraged to eat yogurt daily while on ATB to prevent GI upset. Rest, drink plenty of fluids. She did request Hycodan cough syrup. Do not drive or drink alcohol after taking. An OARRS report was reviewed no discrepancies noted. Side effects/risks/benefi ts of medication were reviewed. Jul, Other 5:43 PM - 5:48 PM [facility] Other 12-06-2021 Evaluation note* Encounter Date Diagnosis Assessment Notes Treatment Notes Treatment Clinical Notes May, COVID-19 (ICD-10 - U07.1) She tested positive for COVID-19 on 05-15-21. She voices that her symptoms started on 05-11-21. We discussed that she could get the monoclonal antibodies. She would like to have these so an order will be sent to the infusion center. She does not feel well and voices that her cough makes it difficult to rest. Will treat with cough medication to allow her to rest. She is off work right now and voices that her employer will handle her [place] paperwork. If she needs a note she is to call. She is encouraged to rest, push fluids. She can begin taking a baby ASA daily with food while she is sick. May, Cough (ICD-10 - R05.9) An OARRS report was reviewed, no discrepancies noted. She would like to have above cough medication on hand to use for her cough. Side effects/risks/benefi ts of medication were reviewed. May, Nausea & vomiting (ICD-10 - R11.2) May, Other 4:25 PM - 4:38 PM [facility] Other 11-09-2021 Evaluation note* Encounter Date Diagnosis Assessment Notes Treatment Notes Treatment Clinical Notes Apr, Wellness examination (ICD-10 - Z00.00) She is here today for a wellness exam. After evaluation I did sign her physical exam form. Apr, Iron deficiency anemia (ICD-10 - D50.9) She is not taking the Iron daily but does take it most days. She has not called to get the Iron infusion yet that Dr. Castillo wanted her to have done. She did have Iron through the clinic prior to her surgery in June 2018. Her HGB is 10.8. I did recommend that she return to see Dr. Castillo for evaluation. She voices that she can call him herself to discuss her low HGB and Iron infusions. She admits to heavy periods but voices that this is nothing new or out of the ordinary for her. Apr, Anxiety (ICD-10 - F41.9) An OARRS report was reviewed, no discrepancies noted. She does continue with above medication and benefits from the Xanax as needed. She needs to be seen every three months for the Xanax. Side effects/risks/benef its of medication were reviewed. Apr, Hyperlipidemia (ICD-10 - E78.5) Discussed cholesterol results with patient today. Total is 225. HDL is 54. LDL is 149. Triglycerides are 110. I did advise her that we would like to see her LDL between 70-100. She is not a smoker. She is of child bearing age. I did recommend that she watch her intake of carbs and sugars. Stay active. She feels that she can make lifestyle changes to improve her readings on her own. She admits she was eating out alot and is doing alot more home cooked meals. Apr, Tachycardia (ICD-10 - R00.0) She does continue to follow with Dr. Cantu. Apr, Weight gain (ICD-10 - R63.5) Her TSH is normal at 1.04. [facility] Other 10-07-2019 History general Narrative - Reported* Type Description Date Medical History endometriosis 2012 Medical History Echocardiogram [facility] Normal, ejection fraction 60-65% Medical History MRI Brain 03-21-19 [facility], Normal Medical History anxiety Medical History pneumonia 06/2019 Surgical History Cholecystectomy Surgical History gal bladder removed 2008 Surgical History ablation - endometri osis removed off ovaries Dr Lentz 2012 Surgical History ovarian torsion 2014 Surgical History MRI pelvis 2017 Surgical History ovarian cyst removed 06/2018 Hospitalization History see above [facility] Other Consult note Author G[facility] April 28, 2022 8:22am Note Date/Time April 28, 2022 8:22am [facility] [address] [place] [address] 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 Patient has had a chronic low level of discomfort and/or pain over the last manymonths. She has a history of endometriosis and ovarian cysts and she assumed itwas such. Last night she developed an acute worsening of her pain to the point that she felt necessary to come to the hospital for evaluation. While here pelvic ultrasound revealed a 4 cm simple cyst of the ovary. She was admitted for observation and pain control. She has initialing history of cysts and endometriosis. She has had multiple laparoscopies, the most recent one was in 2019. She has been told that she has a mess of endometriosis in her pelvis. She has previously tried control pills but was unable to tolerate the side effects. She is not currently on any control and she has a regular monthly period. PMFSH Vaccinated for COVID-19?: Yes Medical History (Updated 04/28/22 @ 05:59 by Yevgeniy Cabrera Jr, MD) Anemia Endometriosis Surgical History History of cholecystectomy History of removal of ovarian cyst Social History Smoking Status: Never smoker Substance Use Type: None Allergies & Medications Medications and Allergies Allergies morphine Adverse Reaction (Verified 04/28/22 00:13) Unknown Reaction Home Medications alprazolam 0.25 mg tablet (Xanax) 0.25 mg PO DAILY PRN Anxiety 04/28/22 [History Confirmed 04/28/22] citalopram 20 mg tablet 20 mg PO DAILY 04/28/22 [History Confirmed 04/28/22] Active Medications Hydromorphone HCl (Hydromorphone 0.5 Mg/0.5 Ml Syringe) 0.5 mg IV-PUSH Q2H PRN PRN Reason: Pain Last Admin: 04/28/22 07:48 Dose: 0.5 mg Lactated Ringer's (Lactated Ringers) 1,000 mls @ 125 mls/hr IV .Q8H BALWINDER Stop: 04/28/23 07:59 Last Admin: 04/28/22 07:58 Dose: 125 mls/hr Ondansetron HCl (Ondansetron 4 Mg/2 Ml Vial) 4 mg IV-PUSH Q6H PRN PRN Reason: Nausea And Vomiting Stop: 04/28/23 04:31 Last Admin: 04/28/22 05:32 Dose: 4 mg Sodium Chloride (Sodium Chloride 0.9 % 10 Ml Syringe) 0 ml IV-PUSH PRN PRN PRN Reason: Flush Stop: 04/28/23 00:11 Last Admin: 04/28/22 04:43 Dose: 10 ml [employer]OM[employer]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 04/28/22 02:00: Urine Color Yellow, Urine Appearance Cloudy A, Urine pH 6.5, Ur Specific [place] 1.005, Urine Protein Negative, Urine Glucose (UA) Normal, UrineKetones Negative, Urine Occult Blood Negative, Urine Nitrite Negative, Urine Bilirubin Negative, Urine Urobilinogen Normal, Ur Leukocyte Esterase 1+ H, UrineRBC None seen, Urine WBC 3-4, Ur Squamous Epith Cells 0-1, Urine Bacteria None seen, Hyaline Casts None seen, Urine HCG, Qual Negative 04/28/22 00:24: Slides for Path Review Ordered path review 04/28/22 00:24: PHA Creatinine Clear 132.36, Sodium 137, Potassium 3.7, [id number], Carbon Dioxide 21.1 L, Anion Gap 14.6, BUN 5 L, Creatinine 0.62, Est GFR ( Amer) > 60, Est GFR (Non-Af Amer) > 60, Glucose 112 H, Calcium 9.3, Total Bilirubin 0.5, AST 26, ALT 43, Alkaline Phosphatase 65, Total Protein 6.9,Albumin 3.8, Globulin 3.1, Albumin/Globulin Ratio 1.2 04/28/22 00:24: Corrected WBC 7.9, Uncorrected WBC Count 7.9, RBC 5.29 H, Hgb 12.3, Hct 39.4, MCV 74.5 L, MCH 23.3 L, MCHC 31.3 L, RDW 27.1 H, Plt Count 329, MPV 7.4, Neut % (Auto) 64.6, Lymph % (Auto) 28.9, [place] % (Auto) 4.5, Eos % (Auto) 1.0, Baso % (Auto) 1.0, Neut # (Auto) 5.1, Lymph # (Auto) 2.3, [place] # (Auto) 0.4, Eos # (Auto) 0.1, Baso # (Auto) 0.1, Nucleated RBC % (auto) 0.0, Platelet Estimate Normal, Plt Morphology Comment Normal, RBC Morphology N/A, Polychromasia Slight, Hypochromasia Slight, Poikilocytosis Moderate, Anisocytosis Marked, Tear Drop Cells Slight, Ovalocytes Moderate 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 She is 2 weeks from her LMP, the cyst isclear and simple and does not have the appearance of an endometrioma nor hemorrhagic cyst. My suspicion is this is simply a functional cyst of the ovarypossibly an unruptured follicle. She does not have an acute abdomen. My plan is for oral pain management and anticipate resolution of the cyst and her pain. I anticipate should be able to be discharged later today. And I suggested she follow-up with her queen producer at the [facility]. Code(s): N83.202 - Unspecified ovarian cyst, left side Status: Acute Documented By: GERALDO HATFIELD MD 04/28/22816 Signed By: <Electronically signed by MD GERALDO HATFIELD> 04/28/22821 [facility] Work Phone: Evaluation + Plan note No data available for this section [facility] Evaluation noteNo assessment information available [facility] Work Phone: Evaluation noteNo InformationNort [employer] Other Evaluation note* Diagnosis Iron deficiency anemia due to chronic blood loss- Primary Iron deficiency anemia secondary to blood loss (chronic) [facility] 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 [facility] 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 Cyst of left ovary Other and unspecified ovarian cyst [facility] Diagnosis 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 Cyst of left ovary Other and unspecified ovarian cyst [facility] Diagnosis Iron deficiency anemia due to chronic blood loss- Primary Iron deficiency anemia secondary to blood loss (chronic) [facility] Diagnosis Onset Date Resolution Status Abdominal pain acute Ovarian cyst acute [facility] Work Phone: Evaluation note* Diagnosis Onset Date Resolution Status Abdominal pain acute Endometriosis acute Ovarian cyst acute [facility] Work Phone: Evaluation note* Author Jennifer Duran [facility] Authored July 28, 2023 12:18pm The above note written by __ _Polly Collado____ acting as human recorder, note dictated by _Wilber .I performed the above HPI, ROS, and Examination. I formulated and dictated the treatment plan and was present for entire encounter. Jennifer Duran D.O. [facility] Work Phone: Hospital Discharge instructions Additional Instructions Please arrange a follow-up appointment with your [facility] queen producer.[facility] Work Phone: Hospital Discharge instructions Additional Instructions Take Motrin and Tylenol as needed for mild to moderate pain. Take oxycodone as prescribed for severe pain. Follow-up with Dr. Ness or Dr. Grayson in the office regarding further treatment with a GnRH [facility] Work Phone: Progress note No data available for this section [facility] Summary Purpose Family History No Family History Records Found Relationship Condition Age at Onset Recorded Date/T romero father Heart disease Unknown grandparent Malignant neoplasm of breast Unknown Relationship Condition Age at Onset Recorded Date/T romero father Heart disease Unknown grandparent Malignant neoplasm of breast Unknown Diabetes mellitus Unknown grandparent Unknown Malignant neoplasm Unknown grandparent Myocardial infarction Unknown Unknown Malignant neoplasm of breast Unknown grandparent Malignant neoplasm Unknown Not Specified Hypertension Unknown Advance Directives No Advanced Directives Records Found Advance Directive Response Recorded Date/ Time Advance Directives No July 15, 2018 1:24pm Advance Directive Response Recorded Date/ Time Advance Directives No July 15, 2018 12:24pm Advance Directive Response Recorded Date/ Time Advance Directives No July 19, 2023 12:58pm Chief Complaint and Reason for Visit Chief Complaint See order abd pain Chief Complaint See order Chief Complaint abd pain Chief Complaint abd pain Ill Reason for Visit Abdominal pain Ovarian cyst Chief Complaint abd pain flu Vaccine Ill stomach pain Reason for Visit Abdominal pain Endometriosis Ovarian cyst Chief Complaint abd pain flu Vaccine Ill stomach pain abd pain Reason for Visit Abdominal pain Endometriosis Ovarian cyst Chief Complaint abd pain telephone/sick Reason for Visit Acute cough Acute sinusitis Fever Reason for Referral Reason appt pt is brent rosenbaum to see whomever can see her first pt needs consult to discuss possible injection for right sided bursitis Diagnosis 1 Greater trochanteric bursitis of right hip (M70.61) Referral Organization [facility] Family Medicin e [facility] Referring Provider First Name Jennifer Referring Provider Last Name Wilber Referring Provider Specialty Family Prac kasi Referred Organization [facility] Referred Provider Chad Luna II Referred Address [address] [place],[address] Referred Provider Specialty Orthopedic S urgery Referral Priority Routine General Notes Angelita Trevino 01/12/2023 03:51:47 PM > referral sent p2p. pt understands that she will be contacted to schedule this appt. Reason appt consult for e zia and treatment of continued cough since covid infection Diagnosis 1 Cough (R05) Referral Organization [facility] [place] Referring Provider First Name Jennifer Referring Provider Last Name Wilber Referring Provider Specialty Family Prac kasi Referred Organization Unknown Facility Referred Provider Steve Donald Referred Provider Specialty Pulmonary Di seases Referral Priority Routine General Notes Angelita Trevino 08/11/2021 01:41:41 PM > referral faxed with last two visit note, chest xray report from May and current insurance cards. pt will be contacted to schedule this appt. Medications Administered Section Inactive Administered Medications - up to 3 most recent administrations Medication Order MAR Action Action Date Dose Rate Site iron sucrose 300 mg in NaCl 0.9% 250 mL (VENOFER) 300 mg, INTRAVENOUS, at 166.67 mL/hr, Administer over 90 Minutes, ONCE, 1 dose, On Tue03/26/22 at 1430, Please conduct a 30 minute post dose observation. New Bag/Syringe/Bottle 03/26/2022 2:10 PM EDT 300 mg 166.67 mL/hr Inactive Administered Medications - up to 3 most recent administrations Medication Order MAR Action Action Date Dose Rate Site iron sucrose 300 mg in NaCl 0.9% 250 mL (VENOFER) 300 mg, INTRAVENOUS, at 166.67 mL/hr, Administer over 90 Minutes, ONCE, 1 dose, On Tue04/09/22 at 1400, Please conduct a 30 minute post dose observation. New Bag/Syringe/Bottle 04/09/2022 1:46 PM EDT 300 mg 166.67 mL/hr Additional Source Comments INFORMATION SOURCE (unrecogn ized section and content) DATE CREATED AUTHOR 08/08/2020 [facility] DATE CREATED AUTHOR AUTHOR'S ORGANIZ ATION 05/03/2022 [facility] DATE CREATED AUTHOR AUTHOR'S ORGANIZ ATION 10/19/2022 [facility] DATE CREATED AUTHOR AUTHOR'S ORGANIZ ATION 05/31/2023 [facility] DATE CREATED AUTHOR AUTHOR'S ORGANIZ ATION 06/23/2023 [facility] DATE CREATED AUTHOR AUTHOR'S ORGANIZ ATION 06/24/2023 [facility] DATE CREATED AUTHOR AUTHOR'S ORGANIZ ATION 09/06/2023 [facility] DATE CREATED AUTHOR AUTHOR'S ORGANIZ ATION 09/14/2023 [facility] Care Teams (unrecognized sec tion and content) Team Status: Inactive Member Role Status Dates Jennifer Duran DO Primary Care Provider, Attending Pro vider Active Team Status: Active Member Role Status Dates Jennifer Duran DO Primary Care Provider Active Team Status: Inactive Member Role Status Dates Jennifer Duran DO Primary Care Provider Active Augustus Santiago DO Attending Provider Active Team Status: Inactive Member Role Status Dates Jennifer Duran DO Primary Care Provider Active Amaury Barlow DO Emergency Provider Active Director Veterinary Relationship Specialty Start Date End Date Jennifer Duran, DO [address] [place] [address] PCP - General 11/27/07 Jennifer Duran, DO [address] [place] [address] Referring Family Practice 04/03/19 Avinash Velásquez MD [address] [place] [address] Referring PRODUCTION INSPECTOR 11/30/21 Director Veterinary Relationship Specialty Start Date End Date Jennifer Duran, DO [address] [place] [address] PCP - General 11/27/07 Jennifer Duran, DO [address] [place] [address] Referring Family Medicine 04/03/19 Avinash Velásquez MD [address] [place] [address] Referring PRODUCTION INSPECTOR 11/30/21 Director Veterinary Relationship Specialty Start Date End Date Jennifer Duran, DO [address] [place] [address] PCP - General 11/27/07 Jennifer Duran, DO [address] [place] [address] Referring Family Medicine 04/03/19 Avinash Velásquez MD [address] [facility] [address] [place] [address] Referring PRODUCTION INSPECTOR 11/30/21 Director Veterinary Relationship Specialty Start Date End Date Jennifer Duran, DO [address] [place] [address] PCP - General 11/27/07 Jennifer Duran, DO [address] [place] [address] Referring Family Medicine 04/03/19 Avinash Velásquez MD [address] [facility] [address] [place] [address] Referring PRODUCTION INSPECTOR 11/30/21 Director Veterinary Relationship Specialty Start Date End Date Jennifer Duran, DO [address] [place] [address] PCP - General 11/27/07 Jennifer Duran, DO [address] [place] [address] Referring Family Medicine 04/03/19 Avinash Velásquez MD [address] [place] [address] Referring PRODUCTION INSPECTOR 11/30/21 Director Veterinary Relationship Specialty Start Date End Date Jennifer Duran, DO [address] [place] [address] PCP - General 11/27/07 Jennifer Duran, DO [address] [place] [address] Referring Family Medicine 04/03/19 Avinash Velásquez MD [address] [place] [id number] Referring PRODUCTION INSPECTOR 11/30/21 Team Status: Active Member Role Status Dates Jennifer Duran , DO Primary Care Provider Active Yevgeniy Cabrera Jr, MD Emergency Provider Active Kiko Saenz , Admit Provider, Attending Provider Active Director Veterinary Relationship Specialty Start Date End Date Jennifer Duran, DO [address] [place] [id number] [facility] - General 11/27/07 Jennifer Duran, DO [address] [place] [address] Referring Family Medicine 04/03/19 Avinash Velásquez MD [address] [place] [address] Referring PRODUCTION INSPECTOR 11/30/21 Team Status: Inactive Member Role Status Dates Jennifer Duran , DO Primary Care Provider Active Elier Jackson , DO Emergency Provider Active Team Status: Active Member Role Status Dates Ming Childress , DO Emergency Provider Active Jennifer Duran , DO Primary Care Provider Active Megan Muniz MD Admit Provider, Attending Provide r Active Team Status: Inactive Member Role Status Dates Ming Childress , DO Emergency Provider Active Jennifer Duran , DO Primary Care Provider Active Megan Muniz MD Admit Provider Active Kiko Saenz , DO Other Provider Active Christi Aquino MD Attending Provider Active Team Status: Inactive Member Role Status Dates Jennifer Duran , DO Primary Care Provider Active Jaime Aleman , DO [facility] Attending Provider Active Team Status: Active Member Role Status Dates Jennifer Duran , DO Primary Care Provider Active Ming Childress , DO Emergency Provider Active Team Status: Inactive Member Role Status Dates Ming Childress , DO Emergency Provider Active Jennifer Duran , DO Primary Care Provider Active Megan Muniz MD Admit Provider Active Christi Aquino MD Attending Provider Active Kiko Saenz , DO Other Provider Active Team Status: Inactive Member Role Status Dates Jennifer Duran , DO Primary Care Provider Active Ming Childress , DO Emergency Provider Active Team Status: Active Member Role Status Dates PHYSICIAN NO FAMILY Primary Care Provider Active Team Status: Inactive Member Role Status Dates PHYSICIAN NO FAMILY Primary Care Provider Active Elier Jackson DO Emergency Provider Active Team Status: Inactive Member Role Status Dates PHYSICIAN NO FAMILY Primary Care Provider Active Start: April 30, 2023 End: April 30, 2023 Elier Jackson DO Emergency Provider Active St art: April 30, 2023 End: April 30, 2023 Team Status: Inactive Member Role Status Dates Jennifer Duran , DO Primary Care Provide r, Attending Provider Active Start: July 28, 2023 End: July 28, 2023 Goals (unrecognized section and content) Goals may be documented in a n alternate section No data available for this sectionNo InformationNo InformationNo InformationNo InformationNo InformationNo InformationNo InformationNo InformationNo InformationNo InformationGoals may be documented in an alternate sectionNo InformationNo InformationNo InformationGoals may be documented in an alternate sectionNo InformationNo InformationNo InformationNo InformationNo InformationNo InformationNo InformationNo InformationGoals may be documented in an alternate sectionNo InformationGoals may be documented in an alternate sectionNo InformationNo InformationNo InformationNo InformationNo Information No data available for this sectionNo InformationNo InformationNo InformationNo InformationGoals may be documented in an alternate section No data available for this section REASON FOR VISIT (unrecogniz ed section and content) Reason Comments Lab Orders Reason Comments Anemia 16 month follow up Reason Comments Social Work Services Specialty Diagnoses / Procedures Referred By Contac t Referred To Contact Diagnoses Cyst of left ovary Iron deficiency anemia due to chronic blood loss Malabsorption of iron Procedures IRON SUCROSE INJECTION PER 1 MG Gil Ni, CATY.[facility] [address] [place] [address] Johny [facility] [place] [address] [place] [address] Referral ID Status Reason Start Date Expiration Date V isits Requested Visits Authorized [id number] Authorized 03/10/2022 06/12/2022 99 99 Reason Comments Art Therapy Source Comments (unrecognize d section and content) In the event this informatio n is protected by the Federal Confidentiality of Alcohol and Drug Abuse Patient Records regulations: The Federal rules restrict any use of the information to criminally investigate or prosecute any alcohol or drug abuse patient.[facility] the event this information is protected by the Federal Confidentiality of Alcohol and Drug Abuse Patient Records regulations: The Federal rules restrict any use of the information to criminally investigate or prosecute any alcohol or drug abuse patient.[facility] the event this information is protected by the Federal Confidentiality of Alcohol and Drug Abuse Patient Records regulations: The Federal rules restrict any use of the information to criminally investigate or prosecute any alcohol or drug abuse patient.[facility] the event this information is protected by the Federal Confidentiality of Alcohol and Drug Abuse Patient Records regulations: The Federal rules restrict any use of the information to criminally investigate or prosecute any alcohol or drug abuse patient.[facility] the event this information is protected by the Federal Confidentiality of Alcohol and Drug Abuse Patient Records regulations: The Federal rules restrict any use of the information to criminally investigate or prosecute any alcohol or drug abuse patient.[facility] the event this information is protected by the Federal Confidentiality of Alcohol and Drug Abuse Patient Records regulations: The Federal rules restrict any use of the information to criminally investigate or prosecute any alcohol or drug abuse patient.[facility] the event this information is protected by the Federal Confidentiality of Alcohol and Drug Abuse Patient Records regulations: The Federal rules restrict any use of the information to criminally investigate or prosecute any alcohol or drug abuse patient.[facility] FOR RECORDS PERTAINING TO PATIENTS WHO ARE OR HAVE BEEN ENROLLED IN A CHEMICAL DEPENDENCY/SUBSTANCEABUSE PROGRAM, SOME INFORMATION MAY BE OMITTED. This clinical summary was aggregated from multiple sources. Caution should be exercised in using it in the provision of clinical care. This summary normalizes information from multiple sources, and as a consequence, information in this document may materially change the coding, format and clinical context of patient data. In addition, data may be omitted in some cases. CLINICAL DECISIONS SHOULD BE BASED ON THE PRIMARY CLINICAL RECORDS. [facility] [employer] [facility]. provides no warranty or guarantee of the accuracy or completeness of information in this document.
[2023-09-19 23:23] VITALS: BP 156/95; PULSE 127; TEMP 36.8; O2SAT 100
--- NOTE | 2023-09-19 23:37 | ED_ITS ---
HPI - Abdominal Pain General Chief Complaint: Abdominal Pain Stated Complaint: abd pain Time Seen by Provider: 09/19/23 23:33 Source: patient Mode of arrival: walk-in Limitations: no limitations History of Present Illness HPI narrative: presents complaining of pain of her lower abdomen that radiates to her back. No diarrhea. Does have nausea but has not vomited. Past history of endometriosis and ovarian cyst. . No fever or urinary symptoms. Pain present all day but increased tonight. Normal BM yesterday Related Data Home Medications ?Medication ?Instructions ?Recorded ?Confirmed alprazolam 0.25 mg tablet 0.25 mg PO Q8H PRN anxiety 09/20/23 09/20/23 citalopram 20 mg tablet (Celexa) 20 mg PO DAILY 09/20/23 Previous Rx's ?Medication ?Instructions ?Recorded tramadol 50 mg tablet 50 mg PO Q6H PRN Pain 5 days #20 09/20/23 tabs Allergies Allergy/AdvReac Type Severity Reaction Status Date / Time morphine Allergy Severe Verified 09/19/23 23:30 prochlorperazine AdvReac Mild Verified 09/19/23 23:30 [From Compazine] Review of Systems ROS Status of ROS 10 or more systems reviewed and unremark able except as noted in history and below [facility] Medical History (Updated 09/20/23 @ 10:34 by Eren Shea MD) LLQ abdominal pain ?R10.32 - Left lower quadrant pain (ICD-10) Complex cyst of left ovary ?N83.292 - Other ovarian cyst, left side (ICD-10) Toothache ?K08.89 - Other specified disorders of teeth and supporting structures (ICD- 10) Surgical History (Updated 09/20/23 @ 06:52 by Marichuy Daily RN) History of removal of cyst ?Z98.890 - Other specified postprocedural states (ICD-10) History of cholecystectomy ?Z90.49 - Acquired absence of other specified parts of digestive tract (ICD- 10) Family History (Updated 09/20/23 @ 05:46 by Marichuy Daily, FER) Family/Other No problems noted. Father Family history of CHF (congestive heart failure) Family history of COPD (chronic obstructive pulmonary disease) Family history of diabetes mellitus Family history of hypertension Family history of myocardial infarction Mother Family history of hypertension Other Family history of cancer Social History (Updated 09/20/23 @ 05:47 by Marichuy Daily RN) Within the past year, how often did you have a drink containing alcohol: monthly or less Within the past year, how many standard drinks containing alcohol did you have on a typical day: 1 or 2 Within the past year, how often did you have six or more drinks on one occasion: never Total score: 0 Score interpretation: A score less than 3 is consistent with normal alcohol consumption. Smoking status: Never smoker Non-prescribed substance use: denies use Highest level of school completed/degree received: Associate degree: academic program Are you now , , , , never or living with a partner: In a typical week, how many times do you talk on the telephone with family, friends, or neighbors: 3 or more times per week How often do you get together with friends or relatives: 3 or more times per week Little interest or pleasure in doing things: not at all Feeling down, depressed, or hopeless: not at all Feel stressed/tense/nervous/anxious/difficulty sleeping: not at all Do you think of yourself as: straight/heterosexual Gender Identity: female Exam Constitutional Vital Signs, click to edit/add: Last Vital Signs Temp 98.1 F 09/20/23 08:43 Pulse 106 H 09/20/23 14:00 Resp 18 09/20/23 08:43 BP 116/79 09/20/23 08:43 Pulse Ox 98 09/20/23 10:00 O2 Del Method Room Air 09/20/23 08:43 Common normals: average body habitus, oriented x3, no limitations, healthy appearing, alert and well nourished General appearance: in distress (mild) [place] Common normals: normocephalic and head/scalp atraumatic Eye Common normals: PERRL and EOMs intact bilaterally Respiratory Common normals: normal respiratory effort, no retractions, no use of accessory muscles and clear to auscultation bilaterally Cardio Common normals: regular rate, regular rhythm, S1 normal heart sound and S2 normal heart sound GI Other: mild lower quad tenderness .no guarding Extremity Common normals: normal to inspection and full ROM Neuro Common normals: oriented x3, CN's II-XII intact bilaterally, moves all extremities and no focal motor deficits Psych Appearance: grossly normal Course Vital Signs Vital signs: Vital Signs Temperature 98.2 F 09/19/23 23:23 Pulse Rate 127 H 09/19/23 23:23 Respiratory Rate 20 09/19/23 23:23 Blood Pressure 156/95 H 09/19/23 23:23 Pulse Oximetry 100 09/19/23 23:23 Oxygen Delivery Method Room Air 09/19/23 23:23 Temperature 98.1 F 09/20/23 08:43 Pulse Rate 106 H 09/20/23 14:00 Respiratory Rate 18 09/20/23 08:43 Blood Pressure 116/79 09/20/23 08:43 Pulse Oximetry 98 09/20/23 10:00 Oxygen Delivery Method Room Air 09/20/23 08:43 MDM - Abdominal Pain MDM Narrative Medical decision making narrative: patient presents with abdominal pain present all day. Nausea but no vomiting. Normal BM yesterday. increasing pain tonight resulting in ER visit. pain LLQ. Known history of endometriosis treated surgically in the past. CT with findings of ovarian cyst 3.3 on right and 1.9 on left. sl. internal density within the cystic masses. short segment of left upper small bowel jejunal/jejunal intussusception without evidence of bowel obstruction. Patient responsive to IV Fentanyl but requiring repeat doses due to recurrence of pain discussed with Dr Tucker. He request admission to the Hospitalist service and he will consult. He is also requesting repeat CT abdomen with oral contrast CT performed and patient admitted for abdominal pain Lab Data Labs: Lab Results 09/19/23 09/19/23 09/20/23 Range/Units 23:38 23:58 02:16 WBC 8.2 (4.0-11.0) 10^3/uL RBC 4.46 (4.20-5.40) 10^6/uL Hgb 10.4 L (12.0-16.0) g/dL Hct 34.8 L (36.0-48.0) % MCV 78.0 L (81.0-99.0) fL MCH 23.3 L (26.7-34.0) pg MCHC 29.9 (29.9-35.2) g/dL RDW 15.7 H (11.0-15.0) % Plt Count 574 H (150-450) 10^3/uL MPV 9.5 (9.5-13.5) fL Neut % (Auto) 48.0 (43.0-75.0) % Lymph % (Auto) 43.9 (20.5-60.0) % [place] % (Auto) 6.6 (1.7-12.0) % Eos % (Auto) 0.9 (0.9-7.0) % Baso % (Auto) 0.4 (0.2-2.0) % Neut # (Auto) 4.0 (1.4-6.5) 10^3/uL Lymph # (Auto) 3.6 (1.2-3.8) 10^3/uL [place] # (Auto) 0.5 (0.3-0.8) 10^3/uL Eos # (Auto) 0.1 (0.0-0.7) 10^3/uL Baso # (Auto) 0.0 (0.0-0.1) 10^3/uL Abs Immat Gran (auto) 0.02 (0.00-0.03) 10^3/uL Imm/Tot Granulo (auto) 0.2 (0.0-0.5) % Sodium 141 (136-145) mmol/L Potassium 3.9 (3.5-5.1) mmol/L Chloride 105 (98-107) mmol/L Carbon Dioxide 24.0 (21.0-32.0) mmol/L Anion Gap 15.9 BUN 5.0 L (7.0-18.0) mg/dL Creatinine 0.80 (0.55-1.02) mg/dL Est GFR ( Amer) >60 (>=60) Est GFR (Non-Af Amer) >60 (>=60) BUN/Creatinine Ratio 6.3 Glucose 100 (74-106) mg/dL Lactate 2.7 H* 1.5 (0.4-2.0) mmol/L Calcium 9.0 (8.5-10.1) mg/dL Total Bilirubin 0.2 (0.2-1.0) mg/dL AST 9 L (15-37) U/L ALT 19 (14-59) U/L Alkaline Phosphatase 84 (46-116) U/L Troponin I High Sens 4.4 (4.0-51.3) pg/mL Total Protein 7.7 (6.4-8.2) g/dL Albumin 3.6 (3.4-5.0) g/dL Globulin 4.1 g/dL Albumin/Globulin Ratio 0.9 Lipase 81.0 H (16.0-77.0) U/L Urine Color Lt. yellow (YELLOW) Urine Clarity Clear (CLEAR) Urine pH 7.0 (5.0-9.0) Ur Specific [place] 1.020 (1.005-1.025) Urine Protein Negative (NEG/TRACE) mg/dL Urine Glucose (UA) Negative (NEGATIVE) mg/dL Urine Ketones Negative (NEGATIVE) mg/dL Urine Occult Blood Negative (NEGATIVE) Urine Nitrite Negative (NEGATIVE) Urine Bilirubin Negative (NEGATIVE) Urine Urobilinogen 0.2 (0.2-1.0) EU/dL Ur Leukocyte Esterase Negative (NEGATIVE) Urine HCG, Qual Negative (NEGATIVE) Imaging Data Abdominal x-ray: Radiologist's impression: ITS Impressions Abdomen/Pelvis CT 09/20/23 00:00 IMPRESSION: 1. Developing multiloculated cystic structures of the bilateral ovaries/adnexa measuring an area of 3.3 cm on the right and 1.9 cm on the left. There is slight internal density within the cystic masses. Differential includes ovarian cysts with internal debris, hemorrhagic ovarian cyst, endometriosis, or other cystic neoplastic ovarian etiology. Recommend close clinical attention and further evaluation with ultrasound pelvis and/or MRI pelvis if not recently or previously performed. 2. Short segment left upper small bowel jejunal/jejunal intussusception without evidence for bowel obstruction (image 33 series 5). 3. No evidence for acute appendicitis. The appendix is unremarkable. Electronically authenticated by: CHAD HANSON Date: 09/20/2023 02:11 Abdomen/Pelvis CT 09/20/23 03:27 IMPRESSION: There is oral contrast within the stomach, duodenum, jejunal and ileal small bowel loops and cecum. The previously suspected jejunal jejunal intussusception is not seen. The bowel gas pattern is nonobstructive. There is no acute intraperitoneal process. There is no inflammatory process. Previous cholecystectomy. Electronically authenticated by: SAROJ JUAREZ Date: 09/20/2023 06:11 Discharge Plan Discharge Chief Complaint: Abdominal Pain Clinical Impression: Intussusception intestine Patient Disposition: Admitted as Observation Discharge Date/Time: 09/20/23 05:35
[2023-09-19 23:53] LABS: Basophils Percent Auto 0.4 % (0.2-2.0); Eosinophils Absolute Auto 0.1 10^3/uL (0.0-0.7); Eosinophils Percent Auto 0.9 % (0.9-7.0); Hematocrit 34.8 % (36.0-48.0); Hemoglobin 10.4 g/dL (12.0-16.0); Immature Granulocytes Abs Auto 0.02 10^3/uL (0.00-0.03); Immature Granulocytes Pct Auto 0.2 % (0.0-0.5); Lymphocytes Absolute Auto 3.6 10^3/uL (1.2-3.8); Lymphocytes Percent Auto 43.9 % (20.5-60.0); Mean Corpuscular HGB Conc 29.9 g/dL (29.9-35.2); Mean Corpuscular Hemoglobin 23.3 pg (26.7-34.0); Mean Platelet Volume 9.5 fL (9.5-13.5); Monocytes Absolute Auto 0.5 10^3/uL (0.3-0.8); Monocytes Percent Auto 6.6 % (1.7-12.0); Platelet Count 574 10^3/uL (150-450); Red Blood Count 4.46 10^6/uL (4.20-5.40); Red Cell Distribution Width 15.7 % (11.0-15.0); White Blood Count 8.2 10^3/uL (4.0-11.0)
[2023-09-19] MEDS: 0.9 % SODIUM CHLORIDE 1,000 ML 999 ML IV (23:54)
[2023-09-19] MEDS: FENTANYL CITRATE/PF 100 MCG/2 ML VIAL 50 MCG IV (23:54)
[2023-09-19] MEDS: ONDANSETRON PF 4 MG/2 ML VIAL IV (23:54)
--- NOTE | 2023-09-20 | CT_ITS ---
The [facility] [address] [place], [place] [address] Patient Name: ANTONIA DE LOS SANTOS MRN: [id number] date: 1985 Sex: F Assigned Patient Location: ER Current Patient Location: ER Accession/Order Number: [id number] Exam Date: 09/20/2023 00:40 Report Date: 09/20/2023 02:11 At the request of: BELKIS SANDOVAL Procedure: CT abdomen pelvis w con EXAM: CT abdomen pelvis w con HISTORY: Acute umbilical abdominal pain. Umbilical pain with nausea for one day. Sharp pain wrapping around to back. COMPARISON: Multiple priors, most recent available CT abdomen pelvis 05/30/2023, CT abdomen pelvis 05/08/2023. TECHNIQUE: Multiple axial views CT abdomen pelvis after administration of 100 cc Omnipaque 300 IV contrast. Coronal sagittal reformats performed. FINDINGS: Visualized lung bases and cardiac apex are unremarkable. Small hiatal hernia. Status post cholecystectomy. Liver, pancreas, spleen, left adrenal gland, kidneys, urinary bladder, and appendix are unremarkable Chronic mild calcifications of the right adrenal gland. Developing multiloculated cystic structures of the bilateral ovaries/adnexa measuring an area of 3.3 cm on the right and 1.9 cm on the left. There is slight internal density within the cystic masses (image 120 series 3). The uterus is unremarkable by CT. Moderate amount of mixed liquid and solid stool within the right colon. No evidence for small bowel obstruction, large ascites, or free air. Moderate amount of fluid and ingested food debris within the nondistended stomach. No perigastric extraluminal free fluid/free air. Short segment left upper small bowel jejunal/jejunal intussusception without evidence for bowel obstruction (image 33 series 5). Retroperitoneal vasculature is unremarkable. No acute bony abnormality. Mild disc bulges at L3-L4 through L5-S1. No severe bony canal narrowing. CT/CT abdomen pelvis w con IMPRESSION: 1. Developing multiloculated cystic structures of the bilateral ovaries/adnexa measuring an area of 3.3 cm on the right and 1.9 cm on the left. There is slight internal density within the cystic masses. Differential includes ovarian cysts with internal debris, hemorrhagic ovarian cyst, endometriosis, or other cystic neoplastic ovarian etiology. Recommend close clinical attention and further evaluation with ultrasound pelvis and/or MRI pelvis if not recently or previously performed. 2. Short segment left upper small bowel jejunal/jejunal intussusception without evidence for bowel obstruction (image 33 series 5). 3. No evidence for acute appendicitis. The appendix is unremarkable. Electronically authenticated by: CHAD HANSON Date: 09/20/2023 02:11
[2023-09-20 00:12] LABS: Alanine Aminotransferase 19 U/L (14-59); Albumin Globulin Ratio 0.9; Albumin Level 3.6 g/dL (3.4-5.0); Alkaline Phosphatase 84 U/L (46-116); Anion Gap 15.9; Aspartate Amino Transferase 9 U/L (15-37); Bilirubin Total 0.2 mg/dL (0.2-1.0); Chloride 105 mmol/L (98-107); Estimated GFR (African America >60 (>=60); Estimated GFR (Non-African Ame >60 (>=60); Globulin 4.1 g/dL; Glucose 100 mg/dL (74-106); Potassium 3.9 mmol/L (3.5-5.1); Sodium 141 mmol/L (136-145); Total Protein 7.7 g/dL (6.4-8.2); Troponin I High Sensitivity 4.4 pg/mL (4.0-51.3)
[2023-09-20 00:15] LABS: Bilirubin Urine NEGATIVE (NEGATIVE); Blood Urine NEGATIVE (NEGATIVE); Clarity Urine CLEAR (CLEAR); Color Urine LT. YELLOW (YELLOW); Glucose Urine UA NEGATIVE (NEGATIVE); Ketones Urine NEGATIVE (NEGATIVE); Leukocyte Esterase Urine NEGATIVE (NEGATIVE); Nitrite Urine NEGATIVE (NEGATIVE); Protein Urine NEGATIVE (NEG/TRACE); Urobilinogen Urine 0.2 EU/dL (0.2-1.0)
[2023-09-20 00:17] LABS: BUN Creatinine Ratio 6.3
[2023-09-20 00:19] LABS: Lactate/Lactic Acid 2.7 mmol/L (0.4-2.0)
[2023-09-20 00:19] LABS: HCG Qualitative Urine* NEGATIVE (NEGATIVE)
[2023-09-20 00:20] LABS: Urine Microscopic Indicated NO
[2023-09-20] MEDS: FENTANYL CITRATE/PF 100 MCG/2 ML VIAL IV ×2 (00:30→02:22)
[2023-09-20] MEDS: 0.9 % SODIUM CHLORIDE 1,000 ML 999 ML IV (02:22)
[2023-09-20 03:07] LABS: Lactate/Lactic Acid 1.5 mmol/L (0.4-2.0)
--- NOTE | 2023-09-20 03:27 | CT_ITS ---
The [address] [address] Patient Name: ANTONIA DE LOS SANTOS MRN: [id number] date: 1985 Sex: F Assigned Patient Location: ER Current Patient Location: [place] Accession/Order Number: [id number] Exam Date: 09/20/2023 05:26 Report Date: 09/20/2023 06:11 At the request of: BELKIS SANDOVAL Procedure: CT abdomen pelvis wo con EXAM: CT abdomen pelvis wo con HISTORY: Abdominal pain. COMPARISON: CT abdomen/pelvis dated 09/20/[address] abdomen/pelvis dated 05/30/2023. TECHNIQUE: Routine CT abdomen/pelvis with oral contrast only. FINDINGS: Lower chest: Unremarkable. Solid organs: Cholecystectomy. The liver, biliary tree, pancreas, spleen, left adrenal gland and a lateral kidneys are unremarkable. There is residual contrast within both renal collecting systems secondary to the antecedent CT abdomen/pelvis examination with intravenous contrast. There are a few calcifications within the lateral limb of the right adrenal gland. Bowel: There is a moderately large amount of stool within the colon with oral contrast within the cecum. The colon is unremarkable. The appendix is unremarkable. The distal esophagus is unremarkable. There is a large amount of oral contrast and debris within the stomach. There is oral contrast the duodenum and jejunal and ileal small bowel loops. The previously suspected jejunal jejunal intussusception is not seen. The bowel gas pattern is nonobstructive. Vasculature: The abdominal aorta and IVC are unremarkable. Inflammation: There is no free air, free fluid or inflammatory process. Lymphadenopathy: There are no pathologically enlarged lymph nodes. Pelvis: There is contrast within the urinary bladder which is otherwise unremarkable. The uterus is unremarkable. There is a follicle within the right ovary. There are numerous pelvic phleboliths. Osseous: No acute findings. CT/CT abdomen pelvis wo con IMPRESSION: There is oral contrast within the stomach, duodenum, jejunal and ileal small bowel loops and cecum. The previously suspected jejunal jejunal intussusception is not seen. The bowel gas pattern is nonobstructive. There is no acute intraperitoneal process. There is no inflammatory process. Previous cholecystectomy. Electronically authenticated by: SAROJ JUAREZ Date: 09/20/2023 06:11
[2023-09-20] MEDS: FENTANYL CITRATE/PF 100 MCG/2 ML VIAL 50 MCG IV (04:44)
--- OUTSIDE RECORDS SUMMARY | 2023-09-20 05:43 | XMS_ITS | CCD ---
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 Final Inspector Name Role Phone DO Jennifer Duran Primary Care Provider [phone] DO Augustus Santiago Attending Provider DO Amaury Barlow Emergency Provider [phone] Jennifer Duran Primary Care Physician [phone] Jennifer Duran Unavailable DO Jennifer Duran Primary Care Provider [phone] DO Jennifer Duran Attending Provider Jennifer Duran DO Primary Care Provider [phone] Jennifer Duran DO Unavailable [phone] Didier BARNETT, Penola P Unavailable Jennifer Duran DO Primary Care Provider Jennifer Duran DO Unavailable [phone] DO Jennifer Duran Primary Care Provider DO Jennifer Duran Attending Provider [phone] MD Yevgeniy Cabrera Jr Emergency Provider DO Kiko Saenz Admit Provider DO Kiko Saenz Attending Provider Jennifer Duran DO Primary Care Provider [phone] Jennifer Duran DO Unavailable Didier BARNETT, Penola [...] Emergency Provider MD Megan Garcia Admit Provider [phone] MD Megan Muniz Attending Provider [phone] DO Kiko Saenz Other Provider MD Christi Aquino Attending Provider DO Jaime Aleman Attending Provider [facility] Primary Care Physician Unavailab le DO Jennifer Duran Primary Care Provider [phone] DO Elier Jackson Emergency Provider DO Jaime Aleman Attending Provider [phone] DO Ming Childress Emergency Provider UnaMD Megan Gongora Admit Provider MD Christi Aquino Attending Provider [phone] ViscDO Kiko landeros Other Provider NO FAMILY, [...] Allergy 9 Other: See Comments, Itching (finding) [facility] (18 sources) Atenolol Drug Allergy 3 Dr. Cantu/ Justin [facility] (6 sources) seasoninig Propensity to adverse reactions Unknown [employer] Other (1 source) Morphine Drug Allergy 3 [facility] (12 sources) Seasonal allergy Propensity to adverse reactions 3 Unknown [facility] (1 source) Morphine Drug Allergy 3 [facility] (2 sources) Prochlorperazin e; Translations: [prochlorperazi ne] Drug Allergy Feeling nervous (finding) [facility] (1 source) No Known Medication Allergies; Translations: [No Known Medication Allergies] Propensity to adverse reactions (disorder) [facility] Repository Medications Current Medications Medication Drug Class(es) [...] day(s), # 250 mL, Refills(s) 0, Pharmacy: [facility]/pharmacy #[id number], 166, cm, 12/04/21 12:54:00 EDT, Height/Length Dosing, [...] sources) Start: 07-23-2020 take 1 tablet by smuan th every other day Ferrous Sulfate 325 [...] day(s), # 12 cap(s), Refills(s) 0, Pharmacy: [facility]/pharmacy #[id number], 165.1, cm, 04/24/23 13:32:00 EST, [...] 13September 14, 2021 April 28, 2022 12:50am [id number] 200 actuat albuterol 0.09 mg/actuat metered dose [...] 30 mg oral tablet (7 sources) Uncompetitive U-aqmhcm-G-asparta te Receptor Antagonist, Sigma-1 Agonist Start: 08-11-2021 take 1 tablet by mouth every six hours as needed Elma DMT 30-30 MG 1 tablet Orally q6 [...] Basophils (Bld) [#/Vol] 0.1 10*3/uL Normal 0.0-0.2 [facility] Comment on above: Performed By: #### C BCWD #### [facility] [address] [place] [address] Basophils/100 WBC (Bld) 0.6 % Normal [facility] Comment on above: Performed By: #### C BCWD #### [facility] [address] [facility] [address] Eosinophils (Bld) [#/Vol] 0.1 10*3/uL Normal 0.0-0.7 [facility] Comment on above: Performed By: #### C BCWD #### [facility] [address] [place] [address] Eosinophils/100 WBC (Bld) 0.6 % Normal [facility] Comment on above: Performed By: #### C BCWD #### [facility] [address] [place] [address] Erythrocyte distribution width (RBC) [Ratio] 15.9 % Critically high 11.5-14.5 [facility] Comment on above: Performed By: #### C BCWD #### [facility] [address] [place] [address] Hematocrit (Bld) [Volume fraction] 34.5 % Low 37.0-47.0 [facility] Comment on above: Performed By: #### C BCWD #### [facility] [address] [place] [address] Hemoglobin (Bld) [Mass/Vol] 10.1 g/dL Low 12.0-16.0 [facility] Comment on above: Performed By: #### C BCWD #### [facility] [address] [place] [address] Lymphocytes (Bld) [#/Vol] 4.4 10*3/uL Normal 1.0-4.8 [facility] Comment on above: Performed By: #### C BCWD #### [facility] [address] [place] [address] Lymphocytes/100 WBC (Bld) 54.2 % Normal [facility] Comment on above: Performed By: #### C BCWD #### [facility] [address] [place] [address] MCH (RBC) [Entitic mass] 22.9 pg Low 27.0-31.3 [facility] Comment on above: Performed By: #### C BCWD #### [facility] [address] [place] [address] MCHC 29.3 % Low 33.0-37.0 [facility] Comment on above: Performed By: #### C BCWD #### [facility] [address] [place] [address] MCV (RBC) [Entitic vol] 78.2 fL Low 79.4-94.8 [facility] Comment on above: Performed By: #### C BCWD #### [facility] [address] [place] [address] Monocytes (Bld) [#/Vol] 0.5 10*3/uL Normal 0.2-0.8 [facility] Comment on above: Performed By: #### C BCWD #### [facility] [address] [place] [address] Monocytes/100 WBC (Bld) 6.5 % Normal [facility] Comment on above: Performed By: #### C BCWD #### [facility] [address] [place] [address] Neutrophils (Bld) [#/Vol] 3.1 10*3/uL Normal 1.4-6.5 [facility] Comment on above: Performed By: #### C BCWD #### [facility] [address] [place] [address] Neutrophils/100 WBC (Bld) 37.9 % Normal [facility] Comment on above: Performed By: #### C BCWD #### [facility] [address] [place] [address] Platelets (Bld) [#/Vol] 482 10*3/uL Critically high 130-40 0 [facility] Comment on above: Performed By: #### C BCWD #### [facility] [address] [place] [address] RBC (Bld) [#/Vol] 4.41 10*6/uL Normal 4.20-5.40 [facility] Comment on above: Performed By: #### C BCWD #### [facility] [address] [place] [address] WBC (Bld) [#/Vol] 8.1 10*3/uL Normal 4.8-10.8 [facility] Comment on above: Performed By: #### C BCWD #### [facility] [address] [place] [address] Comprehensive Metabolic Pane rey 09-06-2023 Albumin [Mass/Vol] 4.4 g/dL Normal 3.5-4.6 [facility] Comment on above: Performed By: #### C MP #### [facility] [address] [place] [address] ALP [Catalytic activity/Vol] 72 U/L Normal 40-130 [facility] Comment on above: Performed By: #### C MP #### [facility] [address] [place] [address] ALT [Catalytic activity/Vol] 15 U/L Normal 0-33 [facility] Comment on above: Performed By: #### C MP #### [facility] [address] [place] [address] Anion gap [Moles/Vol] 11 mmol/L Normal 9-15 [facility] Comment on above: Performed By: #### C MP #### [facility] [address] [place] [address] AST [Catalytic activity/Vol] 18 U/L Normal 0-35 [facility] Comment on above: Performed By: #### C MP #### [facility] [address] [place] [address] Bilirubin [Mass/Vol] 0.4 mg/dL Normal 0.2-0.7 [facility] Comment on above: Performed By: #### C MP #### [facility] [address] [place] [address] Calcium [Mass/Vol] 9.5 mg/dL Normal 8.5-9.9 [facility] Comment on above: Performed By: #### C MP #### [facility] [address] [place] [address] Chloride [Moles/Vol] 102 mmol/L Normal 95-107 [facility] Comment on above: Performed By: #### C MP #### [facility] [address] [place] [address] CO2 [Moles/Vol] 24 mmol/L Normal 20-31 [facility] Comment on above: Performed By: #### C MP #### [facility] [address] [place] [address] Creatinine [Mass/Vol] 0.59 mg/dL Normal 0.50-0.90 [facility] Comment on above: Performed By: #### C MP #### [facility] [address] [place] [address] GFR >90.0 Normal >60 [facility] Comment on above: Result Comment: Meghan atric [...] secretion. Performed By: #### C MP #### [facility] [address] [place] [address] Globulin (S) [Mass/Vol] 3.5 g/dL Normal 2.3-3.5 [facility] Comment on above: Performed By: #### C MP #### [facility] [address] [place] [address] Glucose [Mass/Vol] 98 mg/dL Normal 70-99 [facility] Comment on above: Performed By: #### C MP #### [facility] [address] [place] [address] Potassium [Moles/Vol] 3.2 mmol/L Low 3.4-4.9 [facility] Comment on above: Performed By: #### C MP #### [facility] [address] [place] [address] Protein [Mass/Vol] 7.9 g/dL Normal 6.3-8.0 [facility] Comment on above: Performed By: #### C MP #### [facility] [address] [place] [address] Sodium [Moles/Vol] 137 mmol/L Normal 135-144 [facility] Comment on above: Performed By: #### C MP #### [facility] [address] [place] [address] Urea nitrogen [Mass/Vol] 4 mg/dL Low 6-20 [facility] Comment on above: Performed By: #### C MP #### [facility] [address] [place] [address] US NON OB TRANSVAGINALon US NON OB [...] Jessy Campos MD 09/06/23 Final result Normal [facility] US PELVIS COMPLETEon 024 US PELVIS COMPLETE [...] Jessy Campos MD 09/06/23 Final result Normal [facility] Urinalysis, reflex to cultur silvino 09-06-2023 Urine Reflexed to Culture Not Indicated Normal [facility] Comment on above: Performed By: #### U AR #### [facility] [address] [place] [address] Bilirubin Ql (U) Negative Normal Negative [facility] Comment on above: Performed By: #### U AR #### [facility] [address] [place] [address] Clarity (U) Clear Normal Clear [facility] Comment on above: Performed By: #### U AR #### [facility] [address] [place] [address] Color (U) Yellow Normal Straw/Renville [facility] Comment on above: Performed By: #### U AR #### [facility] [address] [place] [address] Glucose Ql (U) >=1000 Abnormal Negative [facility] Comment on above: Performed By: #### U AR #### [facility] [address] [place] [address] Hemoglobin Ql (U) TRACE Abnormal Negative [facility] Comment on above: Performed By: #### U AR #### [facility] [address] [place] [address] Ketones Ql (U) >=80 Abnormal Negative [facility] Comment on above: Performed By: #### U AR #### [facility] [address] [place] [address] Leukocyte esterase Test strip Ql (U) Negative Normal Negative [facility] Comment on above: Performed By: #### U AR #### [facility] [address] [place] [address] Nitrite Ql (U) Negative Normal Negative [facility] Comment on above: Performed By: #### U AR #### [facility] [address] [place] [address] pH (U) 5.0 [pH] Normal 5.0-9.0 [facility] Comment on above: Performed By: #### U AR #### [facility] [address] [place] [address] Protein Ql (U) TRACE Abnormal Negative [facility] Comment on above: Performed By: #### U AR #### [facility] [address] [place] [address] Specific gravity (U) [Rel density] 1.025 Normal 1.005-1.03 [facility] Comment on above: Performed By: #### U AR #### [facility] [address] [place] [address] Urobilinogen Qn (U) 0.2 {Ivone'U}/dL Normal < 2.0 [facility] Comment on above: Performed By: #### U AR #### [facility] [address] [place] [address] Urine Microscopicon 09-06-19 24 Bacteria LM.HPF (Urine sed) [#/Area] Negative Normal Negative [facility] Comment on above: Performed By: #### U ARELIS #### [facility] [address] [place] [address] Urine Epithelial Cells Auto 0-2 Normal 0-5 [facility] Comment on above: Performed By: #### U ARELIS #### [facility] [address] [place] [address] Urine Hyaline Casts Auto 0-1 Normal 0-5 [facility] Comment on above: Performed By: #### U ARELIS #### [facility] [address] [place] [address] Urine RBC Auto 3-5 Abnormal 0-5 [facility] Comment on above: Performed By: #### U ARELIS #### [facility] [address] [place] [address] Urine WBC Auto 0-2 Normal 0-5 [facility] Comment on above: Performed By: #### U ARELIS #### [facility] [address] [place] [address] ED Note-Physicianon 08-01-19 24 ED Note-Physician Basic [...] endometritis for which she follows with a AGENTS' RECORDS CLERK at the [facility]. Review of Systems A 10 point review [...] for discharge home and follow-up with her AGENTS' RECORDS CLERK. Short course of pain medication as prescribed after an OARRS review for this patient. Return precautions were discussed. All questions were answered. The patient was discharged home for outpatient follow-up for her acute on chronic pain. Assessment/Plan Abdominal pain, acute (R10.9: Unspecified abdominal pain) Ordered: acetaminophen-oxycod one, 1 tab(s), Oral, q6hr Pain 8-10 for 3 day(s), 12 tab(s), Refill(s) 0, [facility]/pharmacy #[id number], 165.1, cm, 07/31/23 15:42:00 EST, [...] Discharge D (more content not included)... Normal [facility] Comment on above: Result Comment: Elec tronically Signed By: Jignesh Dumont DO\.br\Date and Time Signed: 08/01/23 09:21 EST B hCG Qualon 07-31-2023 Beta HCG ( test) Ql Negative Normal [facility] Comment on above: Performed By: #### 2 103322, 5475464, 74341889, 6301678, [id number] ####[facility] [address] [place] [address] BMPon 07-31-2023 Anion gap [Moles/Vol] 15 mmol/L Normal 6-16 [facility] Comment on above: Performed By: #### 2 586224, 2410061, 16399916, 9580058, 48360375 ####[facility] [address] [place] [address] BUN/Creat Ratio 4 No Units Low 10-20 [facility] Comment on above: Performed By: #### 2 051146, 4164077, 97151118, 4536586, 01663763 ####[facility] [address] [place] [address] Calcium [Mass/Vol] 9.6 mg/dL Normal 8.9-11.1 [facility] Comment on above: Performed By: #### 2 522170, 6925814, 24183863, 2894910, 22634269 ####[facility] [address] [place] [address] Chloride [Moles/Vol] 106 mmol/L Normal 101-111 [facility] Comment on above: Performed By: #### 2 367347, 1808327, 49938320, 5150558, 79793685 ####[facility] [address] [place] [address] CO2 [Moles/Vol] 21 mmol/L Normal 21-31 [facility] Comment on above: Performed By: #### 2 079052, 9320414, 75592307, 8586229, 76422451 ####[facility] [address] [place] [address] Creatinine [Mass/Vol] 0.9 mg/dL Normal 0.5-1.3 [facility] Comment on above: Performed By: #### 2 558726, 6846756, 01967728, 9411535, 96026457 ####[facility] [address] [place] [address] Glucose [Mass/Vol] 109 mg/dL Normal 55-199 [facility] Comment on above: Performed By: #### 2 371551, 3072274, 74030567, 4416455, 10830999 ####[facility] [address] [place] [address] Potassium [Moles/Vol] 3.6 mmol/L Normal 3.5-5.3 [facility] Comment on above: Performed By: #### 2 840181, 6710967, 36990058, 6451890, 50012724 ####[facility] [address] [place] [address] Sodium [Moles/Vol] 138 mmol/L Normal 135-145 [facility] Comment on above: Performed By: #### 2 085000, 1342147, 16003059, 3856089, 38719132 ####[facility] [address] [place] [address] Urea nitrogen [Mass/Vol] mg/dL Low 5-21 [facility] Comment on above: Performed By: #### 2 942557, 4133031, 74484976, 5951968, 27825200 ####[address] [address] CBC w/ Auto Diffon 4 Anisocytosis Ql (Bld) PRESENT Invalid Interpretation Code [facility] Comment on above: Performed By: #### 2 076850, 6559334, 28095384, 6495922, 90275997 ####[address] [address] Microcyte PRESENT Invalid Interpretation Code [facility] Comment on above: Performed By: #### 2 421317, 8922304, 47585116, 8393418, 29002982 ####[address] [address] RBC morphology finding Nom (Bld) SEE MORPHOLOGY Invalid Interpretation Code [facility] Comment on above: Performed By: #### 2 601023, 7277963, 03595120, 7140732, 85507939 ####[address] [place] [address] Basophil Absolute 0.1 E9/L Normal 0.0-0.2 [facility] Comment on above: Performed By: #### 2 070489, 0127458, 65776386, 0924574, 76557794 ####[facility] [address] [place] [address] Basophils/100 WBC (Bld) 1.1 % Normal 0.0-2.0 [facility] Comment on above: Performed By: #### 2 143964, 9787332, 28459691, 3358359, 73133481 ####[address] [address] Eos Absolute 0.0 E9/L Normal 0.0-0.5 [facility] Comment on above: Performed By: #### 2 271997, 7206065, 58178384, 6928726, 56871961 ####[address] [address] Eosinophils/100 WBC (Bld) 0.2 % Normal 0.0-8.0 [facility] Comment on above: Performed By: #### 2 298710, 1187985, 65036259, 2760811, 78568619 ####[address] [address] Erythrocyte distribution width (RBC) [Ratio] 16.5 % High 10.9-14.2 [facility] Comment on above: Performed By: #### 2 573346, 7097911, 46242680, 3824923, 13068069 ####[address] [address] Hematocrit (Bld) [Volume fraction] 36.0 % Normal 34.0-46.0 [facility] Comment on above: Performed By: #### 2 850778, 7879220, 78133377, 1894968, 04041051 ####[address] [address] Hemoglobin (Bld) [Mass/Vol] 11.4 g/dL Low 12.0-16.0 [facility] Comment on above: Performed By: #### 2 200775, 9709046, 28608926, 2013321, 88556770 ####[address] [address] Lymph Absolute 2.2 E9/L Normal 1.0-4.0 [facility] Comment on above: Performed By: #### 2 285153, 2910775, 34422272, 1859691, 54346809 ####[facility] [address] [place] [address] Lymphocytes/100 WBC (Bld) 25.3 % Normal 14.0-50.0 [facility] Comment on above: Performed By: #### 2 312928, 0238320, 35876678, 6211205, 69801032 ####[facility] [address] [place] [address] MCH (RBC) [Entitic mass] 24.0 pg Low 27.0-34.0 [facility] Comment on above: Performed By: #### 2 606219, 7281296, 60478608, 8493443, 26686170 ####[address] [address] MCHC (RBC) [Mass/Vol] 31.9 g/dL Normal 31.4-36.0 [facility] Comment on above: Performed By: #### 2 806040, 7273719, 29565590, 9264623, 07305039 ####[address] [address] MCV (RBC) [Entitic vol] 75.2 fL Low 80.0-100.0 [facility] Comment on above: Performed By: #### 2 583948, 6757603, 80139040, 8047244, 06821400 ####[facility] [address] [place] [address] [place] Absolute 0.5 E9/L Normal 0.2-1.0 [facility] Comment on above: Performed By: #### 2 965654, 1194520, 17216911, 4329980, 52545616 ####[address] [address] Monocytes/100 WBC (Bld) 5.4 % Normal 4.0-14.0 [facility] Comment on above: Performed By: #### 2 588022, 9304139, 15673491, 7375979, 25109227 ####[facility] [address] [place] [address] Neutro Absolute 5.9 E9/L Normal 2.0-7.5 [facility] Comment on above: Performed By: #### 2 744758, 1120553, 94567756, 8575436, 63550361 ####[facility] [address] [place] [address] Neutro Auto 68.0 % Normal 36.0-75.0 [facility] Comment on above: Performed By: #### 2 537409, 6485476, 61928661, 9704440, 96150009 ####[address] [address] Platelet 612.0 E9/L High 150.0-500.0 [facility] Comment on above: Performed By: #### 2 276453, 0671463, 41539174, 5005855, 09860799 ####[address] [address] Platelet mean volume (Bld) [Entitic vol] 7.4 fL Normal 6.4-10.8 [facility] Comment on above: Performed By: #### 2 376436, 6267156, 39666063, 6268682, 80405454 ####[address] [place] [address] RBC 4.7 E12/L Normal 4.3-5.9 [facility] Comment on above: Performed By: #### 2 343389, 5706497, 39207418, 1911863, 93448186 ####[address] [place] [address] WBC 8.6 E9/L Normal 4.0-11.0 [facility] Comment on above: Performed By: #### 2 405384, 4542743, 69925932, 9704053, 52287332 ####[facility] [address] [place] [address] CHEMISTRYOrdered By: SYSTEM SYSTEM on 07-31-2023 Albumin [...] Oral contrast amount in ml's: 0 Normal [facility] Discharge Instructionson Discharge Instructions [id number] 020 [id number] #[id number] Normal [facility] ED Clinical Summaryon 2023 ED Clinical Summary [id number] ED Clinical Summary Person Information Name: [facility] Age: 38 Years : 1985 Sex: Female Language: Citizen Of [place] PCP: NONE, XXXX Marital Status: Visit Id: [...] 07/31/2023 18:03:59 ADDRESS: [address] [place] [id number] PHYS DOC NOTES: MEDICAL INFORMATION: Prescriptions Given: New Medications [id number], [address] [place], [place] [id number], [phone] acetaminophen-oxycod one (Percocet 5 mg-325 mg oral [...] up: With: Address: When: Follow-up with your AGENTS' RECORDS CLERK at [facility] In 3 days 08/03/2023 Comments: Call the [...] worsening symptoms. DIAGNOSIS: Abdominal pain, acute Normal [facility] ED Patient Education Noteon 07-31-2023 ED Patient [...] these instructions at home: Medicines ? Take zspp-nxc-qtukair and prescription medicines only as told by [...] your condition for any changes. ? Take prpm-oke-gmletva and prescription medicines only as told by [...] Reviewed: 10/08/2019 Elsevier Patient Education ? 2022 [employer] Normal [facility] ED Patient Summaryon 024 ED Patient Summary [address] [address] Patient Discharge Instructions Person Information Name: LIVIA NOYOLA Age: 38 Years MRN: [id number] Arrival Date: 07/31/2023 15:33:06 Discharge Diagnosis: Abdominal pain, acute Primary Care Physician: NONE, XXXX Provider Information Primary Provider: Jignesh Dumont DO [employer]:Shazia The exam and treatment you received in the Emergency Department were for an urgent problem and are not intended as complete care. It is important that you follow up with a doctor, nurse practitioner, or physician?s assistant women's tennis coach for ongoing care. If your symptoms become [...] Instructions: With: Address: When: Follow-up with your AGENTS' RECORDS CLERK at [facility] In 3 days 08/03/2023 Comments: Call the [...] opioids can be used to help relieve znziepnk-my-tpqawo pain and are often prescribed following a [...] and al (more content not included)... Normal [facility] HEMATOLOGYOrdered By: Sloane Mazariegos on 07-31-2023 Anisocytosis [...] Low 80.0 - 100.0 fL Remisol Heme [place] Absolute 0.5 E9/L Normal 0.2 - 1.0 [...] 07-31-2023 Albumin [Mass/Vol] 4.6 g/dL Normal 3.3-5.0 [facility] Comment on above: Performed By: #### 2 994009, 3252466, 97893287, 4198799, 18036942 ####[facility] [address] [place] [address] Albumin/Globulin [Mass ratio] 1.4 {ratio} Normal 1.1-2.2 [facility] Comment on above: Performed By: #### 2 740469, 4813097, 75304508, 7933725, 94756227 ####[facility] [address] [place] [address] Alk Phos 73 Int._Unit/L Normal 21-98 [facility] Comment on above: Performed By: #### 2 301617, 7651344, 76782879, 3695924, 59770090 ####[facility] [address] [place] [address] ALT 10 Int._Unit/L Normal 6-46 [facility] Comment on above: Performed By: #### 2 391198, 2753728, 64814068, 0428964, 37087118 ####[facility] [address] [place] [address] AST 11 Int._Unit/L Normal 5-43 [facility] Comment on above: Performed By: #### 2 206630, 1863304, 16207873, 7524714, 15330637 ####[facility] [address] [place] [address] Bili Direct 0.1 mg/dL Normal 0.0-0.4 [facility] Comment on above: Performed By: #### 2 244233, 7867059, 51173162, 0062122, 98212589 ####[facility] [address] [place] [address] Bili Indirect 0.4 mg/dL Normal 0.1-0.9 [facility] Comment on above: Performed By: #### 2 444304, 7523926, 68301172, 5907047, 83952497 ####[facility] [address] [place] [address] Bili Total 0.5 mg/dL Normal 0.0-1.1 [facility] Comment on above: Performed By: #### 2 102255, 7696733, 82973839, 5750962, 05561499 ####[facility] [address] [place] [address] Globulin (S) [Mass/Vol] 3.3 g/dL Normal 1.4-4.0 F [facility] Comment on above: Performed By: #### 2 128660, 4859994, 65546366, 4918315, 01268342 ####[facility] [address] [place] [address] Protein [Mass/Vol] 7.9 g/dL High 6.0-7.8 [facility] Comment on above: Performed By: #### 2 584718, 9176769, 23498416, 3275451, 93048771 ####[facility] [address] [place] [address] Monitor Recordon 07-31-2023 Monitor Record [id number] 2#1.00TIFF Normal [facility] SEROLOGYOrdered By: Felicity aptel on 07-31-2023 Beta HCG ( test) Ql Negative (07/31/23 4:20 PM) Normal [facility] Sero UA With Cult Reflexon 2023 Bacteria LM Ql (Urine sed) TRACE Normal Trace [facility] Comment on above: Performed By: #### 1 7996113 ####[facility] [address] [place] [address] Bilirubin Ql (U) Negative Normal Negative [facility] Comment on above: Performed By: #### 1 2328416 ####[facility] [address] [place] [address] Clarity (U) CLEAR Normal Clear [facility] Comment on above: Performed By: #### 1 1178291 ####[facility] [address] [place] [address] Color (U) YELLOW Normal Yellow [facility] Comment on above: Performed By: #### 1 6446046 ####[address] [address] Epithelial cells.squamous LM.HPF (Urine sed) [#/Area] 0-2 Normal 0-2 [facility] Comment on above: Performed By: #### 1 6777889 ####[address] [address] Glucose Test strip (U) [Mass/Vol] Negative Normal Negative [facility] Comment on above: Performed By: #### 1 1515777 ####[address] [address] Hemoglobin Ql (U) Negative Normal Negative [facility] Comment on above: Performed By: #### 1 0538165 ####[address] [address] Ketones (U) [Mass/Vol] 1+ Abnormal Negative Fi [facility] Comment on above: Performed By: #### 1 0969188 ####[address] [address] Oxford.plasma/Oxford. RBC (Bld) [Mass ratio] 0-3 Normal 0-3 [facility] Comment on above: Performed By: #### 1 5197735 ####[facility] [address] [place] [address] Mucus Ql (Urine sed) TRACE Normal Fish [facility] Comment on above: Performed By: #### 1 0240744 ####[address] [place] [address] Nitrite Ql (U) Negative Normal Negative [facility] Comment on above: Performed By: #### 1 1623243 ####[address] [place] [address] pH (U) 8.5 [pH] Invalid Interpretation Code 5.0-9.0 [facility] Comment on above: Performed By: #### 1 7075925 ####[facility] [address] [place] [address] Protein (U) [Mass/Vol] Negative Normal Negative [facility] Comment on above: Performed By: #### 1 8006369 ####[facility] [address] [place] [address] Specific gravity (U) [Rel density] 1.015 Invalid Interpretation Code 1.005-1.030 [facility] Comment on above: Performed By: #### 1 0372449 ####[facility] [address] [place] [address] Type of Urine collection method Clean Catch Normal [facility] Comment on above: Performed By: #### 1 2649650 ####[address] [address] Urobilinogen Qn (U) 0.2 {Ivone'U}/dL Normal 0.0-1.0 [facility] Comment on above: Performed By: #### 1 7400822 ####[facility] [address] [place] [address] WBC Auto Ql (U) Negative Normal Negative [facility] Comment on above: Performed By: #### 1 6593077 ####[facility] [address] [place] [address] WBC LM.HPF (Urine sed) [#/Area] 0-5 Normal 0-5 [facility] Comment on above: Performed By: #### 1 4917869 ####[facility] [address] [place] [address] URINALYSISOrdered By: Felicity George on 07-31-2023 Bacteria [...] Interpretation Code Negative [facility] UA Auto SS Oxford.plasma/Oxford. RBC (Bld) [Mass ratio] 0-3 /HPF Normal [...] [facility] UA Auto SS Urobilinogen Qn (U) 0.9900228 {Ivone'U}/dL Normal 0.0 - 1.0 EU/dL [facility] UA Auto SS WBC Auto Ql (U) Negative (07/31/23 4:30 PM) Normal Negative [facility] UA Auto SS WBC LM.HPF (Urine sed) [#/Area] 0-5 /HPF Normal 0-5/HPF [facility] UA Auto SS eGFRon 07-31-2023 eGFR 85 mL/min/1.73 m2 Normal >=59 [facility] Comment on above: Order Comment: Order added by Discern Expert. Performed By: #### 2 826274, 1006451, 89311558, 4034375, 31303040 ####[facility] [address] [place] [address] ED NOTEon 06-23-2023 ED NOTE HNO ID: [id number] Author: DENNIS CAMARGO RN Service: ? Author Type: Registered Nurse Type: ED Notes Filed: 06/22/2023 22:17 Note Text: Patient given verbal and written D/C instructions. Medications and follow up care discussed. Instructed to return to ED if conditions and symptoms persist or worsen. All questions addressed and answered pt verbalized understanding. Pt discharged to [facility], [facility] noted. Normal [facility] HAV IgM Ser Qlon 06-23-2023 HAV IgM Ql (S) Negative Normal Negative [facility] Comment on above: Order Comment: Speci men Type: BLOOD SPECIMENOrdering Facility: [facility] Address: [address] [place] [address] Result Comment: No e vidence of recent infection with Hepatitis A virus. Performed By: #### 3 1204-1, 5195, 36946-7 ####[facility] LABCLIA [id number] [place] [address] [place] HBV core IgM Ser Qlon 2023 HBV core IgM Ql (S) Negative Normal Negative [facility] Comment on above: Order Comment: Speci men Type: BLOOD SPECIMENOrdering Facility: [facility] Address: [address] [place] [address] Result Comment: No e vidence of recent infection with Hepatitis B virus. Should recent infection be suspected, repeat testing may be considered 3-4 weeks after this draw. Performed By: #### 3 1204-1, 5195-, 67103-3 ####[facility] LABCLIA [id number] [place] [address] [place] HBV surface Ag Ser Qlon 06-13 HBV surface Ag Ql (S) Negative Normal Negative [facility] Comment on above: Order Comment: Speci men Type: BLOOD SPECIMENOrdering Facility: [facility] Address: [address] [place] [address] Performed By: #### 3 1204-1, 5195-3, 84755-2 ####[facility] LABCLIA [id number] [facility] [address] [place] HCV RNA SerPl SENAIT+probe-aCnc on 06-23-2023 HCV RNA SENAIT+probe Qn Not detected Normal HCV RNA not detected by PCR. [facility] Comment on above: Order Comment: Speci men Type: BLOOD SPECIMEN [facility] Address: [address] [place] [address] Performed By: #### 1 1011-4 #### [facility] CLIA [id number] [facility] DESK [address] [place] ALLIED HEALTHon 06-22-2023 ALLIED HEALTH HNO ID: [id number] Author: SELENA AMADOR RT(R) Service: Radiology Author [...] PERIPHERAL IV DATA: Inpatient - refer to [facility] documentation RADIOLOGY DEPARTMENT: CT; Exam(s) Completed: Abdomen/Pelvis SIGNATURE: RT Jose(R) PATIENT NAME: Livia Noyola DATE: June 22, 2023 TIME: 7:46 PM [facility] HNO ID: [id number] Author: DELLA BEST RDMS, RVT Service: Radiology Author Type: Truck Trailer Mechanic Type: Allied Health Filed: 06/22/2023 18:55 Note [...] RDMS, GINETTE June 22, 2023 6:55 PM [facility] CBC W Auto Differential pane l (Bld)on 06-22-2023 Basophils (Bld) [#/Vol] 0.03 10*3/uL Normal <0.11 [facility] Comment on above: Order Comment: Speci men Type: BLOOD SPECIMENOrdering Facility: [facility] Address: [address] [place] [address] Performed By: #### 5 7021-8 ####[facility]ORYCL[facility] [id number] [address] [place] [address] [place] Basophils/100 WBC (Bld) 0.6 % Normal [facility] Comment on above: Order Comment: Speci men Type: BLOOD SPECIMENOrdering Facility: [facility] Address: [address] [place] [address] Performed By: #### 5 7021-8 ####[facility]ATORYCLIA [id number] [address] [place] [address] [place] Differential cell count method Nom (Bld) Auto [facility] Comment on above: Order Comment: Speci men Type: BLOOD SPECIMENOrdering Facility: [facility] Address: [address] [place] [address] Performed By: #### 5 7021-8 ####[facility]ATORYCLIA [id number] [place] [address] [place] Eosinophils (Bld) [#/Vol] 0.03 10*3/uL Normal <0.46 [facility] Comment on above: Order Comment: Speci men Type: BLOOD SPECIMENOrdering Facility: [facility] Address: [address] [place] [address] Performed By: #### 5 7021-8 ####[facility]ORYCLIA [id number] [address] [place] Eosinophils/100 WBC (Bld) 0.6 % Normal [facility] Comment on above: Order Comment: Speci men Type: BLOOD SPECIMENOrdering Facility: [facility] Address: [address] [place] [address] Performed By: #### 5 7021-8 ####[facility]ORYCLIA [id number] [address] [place] Erythrocyte distribution width (RBC) [Ratio] 16.5 % High 11.5-15.0 [facility] Comment on above: Order Comment: Speci men Type: BLOOD SPECIMENOrdering Facility: [facility] Address: [address] [place] [address] Performed By: #### 5 7021-8 ####[facility]ORATORYCLIA [id number] [address] [place], [place] [address] [place] Hematocrit (Bld) [Volume fraction] 37.7 % Normal 36.0-46.0 [facility] Comment on above: Order Comment: Speci men Type: BLOOD SPECIMENOrdering Facility: [facility] Address: [address] [place] [address] Performed By: #### 5 7021-8 ####[facility]ATORYCLIA [id number] [address] [place] [address] [place] Hemoglobin (Bld) [Mass/Vol] 11.7 g/dL Normal 11.5-15.5 [facility] Comment on above: Order Comment: Speci men Type: BLOOD SPECIMENOrdering Facility: [facility] Address: [address] [place] [address] Performed By: #### 5 7021-8 ####[facility]ATORYCLIA [id number] [place] [address] [place] Immature granulocytes (Bld) [#/Vol] 10*3/uL Normal <0.10 [facility] Comment on above: Order Comment: Speci men Type: BLOOD SPECIMENOrdering Facility: [facility] Address: [address] [place] [address] Performed By: #### 5 7021-8 ####[facility]ORATORYCLIA [id number] [place] [address] [place] Immature granulocytes/100 WBC (Bld) 0.4 % Normal [facility] Comment on above: Order Comment: Speci men Type: BLOOD SPECIMENOrdering Facility: [facility] Address: [address] [place] [address] Performed By: #### 5 7021-8 ####[facility]ORATORYCLIA [id number] [place] [address] [place] Lymphocytes (Bld) [#/Vol] 1.87 10*3/uL Normal 1.00-4.00 [facility] Comment on above: Order Comment: Speci men Type: BLOOD SPECIMENOrdering Facility: [facility] Address: [address] [place] [address] Performed By: #### 5 7021-8 ####[facility]ORATORYCLIA [id number] [place] [address] [place] Lymphocytes/100 WBC (Bld) 34.4 % Normal [facility] Comment on above: Order Comment: Speci men Type: BLOOD SPECIMENOrdering Facility: [facility] Address: [address] [place] [address] Performed By: #### 5 7021-8 ####[facility]ORATORYCLIA [id number] [place] [address] [place] MCH (RBC) [Entitic mass] 24.5 pg Low 26.0-34.0 [facility] Comment on above: Order Comment: Speci men Type: BLOOD SPECIMENOrdering Facility: [facility] Address: [address] [place] [address] Performed By: #### 5 7021-8 ####[facility]ORATORYCLIA [id number] [place] [address] [place] MCHC (RBC) [Mass/Vol] 31.0 g/dL Normal 30.5-36.0 [facility] Comment on above: Order Comment: Speci men Type: BLOOD SPECIMENOrdering Facility: [facility] Address: [address] [place] [address] Performed By: #### 5 7021-8 ####[facility] LABORATORYCLIA [id number] [place] [address] [place] MCV (RBC) [Entitic vol] 79.0 fL Low 80.0-100.0 L [facility] Comment on above: Order Comment: Speci men Type: BLOOD SPECIMENOrdering Facility: [facility] Address: [address] [place] [address] Performed By: #### 5 7021-8 ####[facility]ORATORYCLIA [id number] [place] [address] [place] Monocytes (Bld) [#/Vol] 0.25 10*3/uL Normal <0.87 [facility] Comment on above: Order Comment: Speci men Type: BLOOD SPECIMENOrdering Facility: [facility] Address: [address] [place] [address] Performed By: #### 5 7021-8 ####[facility] LABORATORYCLIA [id number] [address] [place] [address] [place] Monocytes/100 WBC (Bld) 4.6 % Normal [facility] Comment on above: Order Comment: Speci men Type: BLOOD SPECIMENOrdering Facility: [facility] Address: [address] [place] [address] Performed By: #### 5 7021-8 ####[facility]ORATORYCLIA [id number] [address] [place] [address] [place] Neutrophils (Bld) [#/Vol] 3.23 10*3/uL Normal 1.45-7.50 [facility] Comment on above: Order Comment: Speci men Type: BLOOD SPECIMENOrdering Facility: [facility] Address: [address] [place] [address] Performed By: #### 5 7021-8 ####[facility]ORATORYCLIA [id number] [place] [address] [place] Neutrophils/100 WBC (Bld) 59.4 % Normal [facility] Comment on above: Order Comment: Speci men Type: BLOOD SPECIMENOrdering Facility: [facility] Address: [address] [place] [address] Performed By: #### 5 7021-8 ####[facility]ORATORYCLIA [id number] [place] [address] [place] Nucleated RBC (Bld) [#/Vol] 10*3/uL Normal <0.01 [facility] Comment on above: Order Comment: Speci men Type: BLOOD SPECIMENOrdering Facility: [facility] Address: [address] [place] [address] Performed By: #### 5 7021-8 ####[facility]ORATORYCLIA [id number] [address] [place] [address] [place] Nucleated RBC/100 WBC (Bld) [Ratio] 0.0 /100 WBC Normal [facility] Comment on above: Order Comment: Speci men Type: BLOOD SPECIMENOrdering Facility: [facility] Address: [address] [place] [address] Performed By: #### 5 7021-8 ####[facility] LABORATORYCLIA [id number] [place] [id number] [place] Platelet mean volume (Bld) [Entitic vol] 9.4 fL Normal 9.0-12.7 [facility] Comment on above: Order Comment: Speci men Type: BLOOD SPECIMENOrdering Facility: [facility] Address: [address] [place] [address] Performed By: #### 5 7021-8 ####[facility] LABORATORYCLIA [id number] [place] [address] [place] Platelets (Bld) [#/Vol] 486 10*3/uL High 150-400 [facility] Comment on above: Order Comment: Speci men Type: BLOOD SPECIMENOrdering Facility: [facility] Address: [address] [place] [address] Performed By: #### 5 7021-8 ####[facility]ORATORYCLIA [id number] [place] [address] [place] RBC (Bld) [#/Vol] 4.77 10*6/uL Normal 3.90-5.20 [facility] Comment on above: Order Comment: Speci men Type: BLOOD SPECIMENOrdering Facility: [facility] Address: [address] [place] [address] Performed By: #### 5 7021-8 ####[facility] LABORATORYCLIA [id number] [place] [address] [place] WBC (Bld) [#/Vol] 5.43 10*3/uL Normal 3.70-11.00 [facility] Comment on above: Order Comment: Speci men Type: BLOOD SPECIMENOrdering Facility: [facility] Address: [address] [place] [address] Performed By: #### 5 7021-8 ####[facility] LABORATORYCLIA [id number] [address] [address] [place] CT ABD/PEL W [...] Tissues: No significant finding. Lower thorax: Unremarkable. Electronic Tester (topogram) images: Unremarkable. IMPRESSION: No acute intra-abdominal or pelvic process identified. [employer]: [employer] Transcribe Date/Time: Jun 22 2023 8:25P Dictated by : CHAD SCHILLING MD This examination was interpreted and the report reviewed and electronically signed by: CHAD SCHILLING MD on Jun 22 2023 8:29PM EST [id number] CN Normal [facility] Comprehensive metabolic 2000 panelon 06-22-2023 Albumin [Mass/Vol] 4.8 g/dL Normal 3.9-4.9 [facility] Comment on above: Order Comment: Speci men Type: BLOOD SPECIMENOrdering Facility: [facility] Address: [address] [place] [address] Performed By: #### 2 4323-8, 3040-3, ####[facility] LABORATORYCLIA [id number] [address] [place], [place] [address] [place] ALP [Catalytic activity/Vol] 108 U/L Normal 34-123 [facility] Comment on above: Order Comment: Speci men Type: BLOOD SPECIMENOrdering Facility: [facility] Address: [address] [place] [address] Performed By: #### 2 4323-8, 0-3, ####[facility] LABORATORYCLIA [id number] [address] [place], [place] [address] [place] ALT [Catalytic activity/Vol] 63 U/L High 7-38 [facility] Comment on above: Order Comment: Speci men Type: BLOOD SPECIMENOrdering Facility: [facility] Address: [address] [place] [address] Performed By: #### 2 4323-8, 3039-3, ####[facility] LABORATORYCLIA [id number] [place] [id number] [place] Anion gap [Moles/Vol] 13 mmol/L Normal 9-18 [facility] Comment on above: Order Comment: Speci men Type: BLOOD SPECIMENOrdering Facility: [facility] Address: [address] [place] [address] Performed By: #### 2 4323-8, 0-3, ####[facility]ORATORYCLIA [id number] [place] [id number] [place] AST [Catalytic activity/Vol] 109 U/L High 13-35 [facility] Comment on above: Order Comment: Speci men Type: BLOOD SPECIMENOrdering Facility: [facility] Address: [address] [place] [address] Performed By: #### 2 4323-8, 3040-3, ####[facility]ORATORYCLIA [id number] [address] [place], [place] [address] [place] Bilirubin [Mass/Vol] 0.4 mg/dL Normal 0.2-1.3 [facility] Comment on above: Order Comment: Speci men Type: BLOOD SPECIMENOrdering Facility: [facility] Address: [place] [address] Performed By: #### 2 4323-8, 0-3, ####[facility]ORATORYCLIA [id number] [address] [place], [place] [address] [place] Calcium [Mass/Vol] 9.6 mg/dL Normal 8.5-10.2 [facility] Comment on above: Order Comment: Speci men Type: BLOOD SPECIMENOrdering Facility: [facility] Address: [place] [address] Performed By: #### 2 4323-8, 3039-3, ####[facility] LABORATORYCLIA [id number] [address] [place] [address] [place] Chloride [Moles/Vol] 102 mmol/L Normal 97-105 [facility] Comment on above: Order Comment: Speci men Type: BLOOD SPECIMENOrdering Facility: [facility] Address: [place] [address] Performed By: #### 2 4323-8, 3, ####[facility]ORATORYCLIA [id number] [place] [id number] [place] CO2 [Moles/Vol] 23 mmol/L Normal 22-30 [facility] Comment on above: Order Comment: Speci men Type: BLOOD SPECIMENOrdering Facility: [facility] Address: [address] [place] [address] Performed By: #### 2 4323-8, 3039-3, ####[facility]ORATORYCLIA [id number] [place] [id number] [place] Creatinine [Mass/Vol] 0.64 mg/dL Normal 0.58-0.96 [facility] Comment on above: Order Comment: Speci men Type: BLOOD SPECIMENOrdering Facility: [facility] Address: [address] [place] [address] Performed By: #### 2 4323-8, 3040-3, 55143-8 ####[facility] LABORATORYCLIA [id number] [place] [id number] [place] Creatinine and Glomerular filtration rate.predicted panel (S/P/Bld) 118 mL/min/1.73m??? Normal >=60 [facility] Comment on above: Order Comment: Roselyn conway Type: BLOOD SPECIMENOrdering Facility: [facility] Address: [address] [place] [address] Result Comment: Shelley mated Glomerular Filtration Rate [...] GFR. Performed By: #### 2 4323-8, 3040-3, ####[facility]ORATORYCLIA [id number] [place] [id number] [place] Glucose [Mass/Vol] 102 mg/dL High 74-99 [facility] Comment on above: Order Comment: Roselyn conway Type: BLOOD SPECIMENOrdering Facility: [facility] Address: [address] [place] [address] Result Comment: The [place] Diabetes Association (ADA) provides guidance for cutoff [...] Medical Care in Diabetes 2016, [place] Diabetes Association. Diabetes Care. 2016.39(Suppl 1). Performed By: #### 2 4323-8, 3043, ####[facility] LABORATORYCLIA [id number] [address] [place], [place] [address] [place] Potassium [Moles/Vol] 3.8 mmol/L Normal 3.7-5.1 [facility] Comment on above: Order Comment: Speci men Type: BLOOD SPECIMENOrdering Facility: [facility] Address: [address] [place] [address] Performed By: #### 2 4323-8, 3, ####[facility] LABORATORYCLIA [id number] [address] [place], [place] [address] [place] Protein [Mass/Vol] 8.2 g/dL High 6.3-8.0 [facility] Comment on above: Order Comment: Speci men Type: BLOOD SPECIMENOrdering Facility: [facility] Address: [address] [place] [address] Performed By: #### 2 4323-8, 3, ####[facility]ORATORYCLIA [id number] [place] [id number] [place] [place] Sodium [Moles/Vol] 138 mmol/L Normal 136-144 [facility] Comment on above: Order Comment: Speci men Type: BLOOD SPECIMENOrdering Facility: [facility] Address: [address] [place] [address] Performed By: #### 2 4323-8, 3, ####[facility] LABORATORYCLIA [id number] [place] [id number] [place] Urea nitrogen [Mass/Vol] 8 mg/dL Normal 7-21 [facility] Comment on above: Order Comment: Speci men Type: BLOOD SPECIMENOrdering Facility: [facility] Address: [address] [place] [address] Performed By: #### 2 4323-8, 3039-3, ####[facility] LABORATORYCLIA [id number] [place] [id number] [place] ECG COMPLETEon 06-22-2023 ECG COMPLETE Ventricular Rate : 105 BPM Atrial Rate : 103 BPM P-R Interval : 152 ms QRS Duration : 77 ms Q-T Interval : 324 ms QTC Calculation(Bazett) : 429 ms Calculated P Manderson : 42 degrees Calculated R Manderson : 56 degrees Calculated T Manderson : 49 degrees Sinus tachycardia Low voltage, precordial leads Anteroseptal infarct, old Abnormal ECG no stemi 181 Confirmed by MD SEN BRENT ([id number]), design editor STEPHENIE ERIC ([id number]) on 06/23/2023 12:09:36 PM NAME : LIVIA NOYOLA PID : [id number] : 1985 Gender : Female Race : ORD : [id number] Procedure Date : Jun 22 2023 18:10:13 Edit Date : Jun 23 2023 12:09:40 Diagnosis: Sinus tachycardia Low voltage, precordial leads Anteroseptal infarct, old Abnormal ECG no stemi 1814 Confirmed by MD SEN BRENT ([id number]), design editor STEPHENIE ERIC ([id number]) on 06/23/2023 12:09:36 PM Test Reason : Tachycardia Location : 502 : [facility] ED Overread By : MD SEN BRENT Edited By : STEPHENIE ERIC Referred By : , Acquired by : DAVID [facility] ED NOTEon 06-22-2023 ED NOTE HNO ID: [id number] Author: DENNIS CAMARGO RN Service: ? Author Type: Registered Nurse Type: ED Notes Filed: 06/22/2023 21:56 Note Text: Assumed care of pt at this time and received report from previous RN. [facility] ED NOTE HNO ID: [id number] Author: MATILDE DAVIS RN Service: Nursing Author Type: Registered Nurse Type: ED Notes Filed: 06/22/2023 17:38 Note Text: Pt presents with LLQ pain that radiates to back that began this morning but worsened one hour prior to arrival. Denies urinary complaints. [facility] ED PROV NOTEon 06-22-2023 ED PROV NOTE HNO ID: [id number] Author: EVGENY SEN MD Service: Emergency Medicine [...] with some relief. History provided by: Patient certified court interpreter used: No PAST MEDICAL HISTORY Diagnosis Date [...] Hyperlipidemia Father Heart Father bypass surgery, stents, [place] Social History Tobacco Use Smoking status: Never [...] Ref Range (more content not included)... Normal [facility] ED Triage Noteon 06-22-2023 ED Triage Note HNO ID: [id number] Author: TABBY LUCIANO PA-C Service: ? Author Type: Physician Plastic Installer Type: ED Triage Notes Filed: 06/22/2023 17:43 [...] treating team. SIGNATURE: Tabby Luciano PA-C Normal [facility] HCG Preg Ur Qlon 06-22-2023 HCG ( test) Ql (U) Negative Normal Negative [facility] Comment on above: Order Comment: Speci men Type: URINE SPECIMENOrdering Facility: [facility] Address: [address] [place] [address] [place] [address] Result Comment: This test is intended to aid in the early detection of . Very dilute urine samples, as indicated by a low specific gravity, may not contain airport representative levels of hCG. This test detects [...] for . Performed By: #### 2 106-3 ####[facility] LABORATORYCLIA [id number] [place] [id number] [place] Lipase SerPl-cCncon 06-22-19 24 Lipase [Catalytic activity/Vol] 34 U/L Normal 16-61 [facility] Comment on above: Order Comment: Speci men Type: BLOOD SPECIMENOrdering Facility: [facility] Address: [address] [place] [address] Performed By: #### 2 4323-8, 3040-3, 28753-9 ####[facility] LABORATORYCLIA [id number] [place] [id number] [place] Magnesium SerPl-mCncon 06-22 Magnesium [Mass/Vol] 2.2 mg/dL Normal 1.7-2.3 [facility] Comment on above: Order Comment: Speci men Type: BLOOD SPECIMENOrdering Facility: [facility] Address: [address] [place] [address] Performed By: #### 2 4323-8, 3040-3, 53074-0 ####[facility]IC[facility] HEALTHCLIA [id number] [place] [id number] [place] US DOPPLER COMPLETEon 2023 US DOPPLER COMPLETE * * *Final Report* * * DATE OF EXAM: Jun 22 2023 6:54PM [facility] 1033 - US DOPPLER COMPLETE / [...] and stored in a permanent archive. MQ: [facility] COMPARISON: None RESULT: Uterus: -Size: 8.1 [...] Normal sonographic appearance of the female pelvis. [employer]: ANTONIO Transcribe Date/Time: Jun 22 2023 7:44P Dictated by : Vasu BURNS MD This examination was interpreted and the report reviewed and electronically signed by: Vasu BURNS MD on Jun 22 2023 7:48PM EST [id number] [facility] FEMALE PELVIS TRANSABD LT Don 06-22-2023 [...] and stored in a permanent archive. MQ: [facility] COMPARISON: None RESULT: Uterus: -Size: 8.1 [...] Normal sonographic appearance of the female pelvis. [employer]: ANTONIO Transcribe Date/Time: Jun 22 2023 7:44P Dictated by : Vasu BURNS MD This examination was interpreted and the report reviewed and electronically signed by: Vasu BURNS MD on Jun 22 2023 7:48PM EST [id number] CN [facility] US FEMALE PELVIS TRANSVAGon 06-22-2023 US FEMALE [...] and stored in a permanent archive. MQ: [facility]_2021 COMPARISON: None RESULT: Uterus: -Size: 8.1 [...] Normal sonographic appearance of the female pelvis. [employer]: ANTONIO Transcribe Date/Time: Jun 22 2023 7:44P Dictated by : Vasu BURNS MD This examination was interpreted and the report reviewed and electronically signed by: Vasu BURNS MD on Jun 22 2023 7:48PM EST [id number] [facility] Urinalysis complete panel (U )on 06-22-2023 Bacteria LM.HPF (Urine sed) [#/Area] Few Abnormal None Seen [facility] Comment on above: Order Comment: Speci men Type: URINE SPECIMENOrdering Facility: [facility] Address: [address] [place] [address] Performed By: #### 2 4356-8 ####[facility] LABORATORYCLIA [id number] [address] [place] [address] [place] Bilirubin Ql (U) Negative Normal Negative [facility] Comment on above: Order Comment: Speci men Type: URINE SPECIMENOrdering Facility: [facility] Address: [address] [place] [address] Performed By: #### 2 4356-8 ####[facility] LABORATORYCLIA [id number] [address] [place] [address] [place] Clarity (Unsp spec) Clear Normal Clear [facility] Comment on above: Order Comment: Speci men Type: URINE SPECIMENOrdering Facility: [facility] Address: [address] [place] [address] Performed By: #### 2 4356-8 ####[facility] LABORATORYCLIA [id number] [address] [place] [address] [place] Color (U) Yellow Normal Yellow [facility] Comment on above: Order Comment: Speci men Type: URINE SPECIMENOrdering Facility: [facility] Address: [address] [place] [address] Performed By: #### 2 4356-8 ####[facility] LABORATORYCLIA [id number] [address] [place] [address] [place] Epithelial cells LM.HPF (Urine sed) [#/Area] Few Normal [facility] Comment on above: Order Comment: Speci men Type: URINE SPECIMENOrdering Facility: [facility] Address: [address] [place] [address] Performed By: #### 2 4356-8 ####[facility] LABORATORYCLIA [id number] [address] [place] [address] [place] Glucose Test strip (U) [Mass/Vol] Negative Normal Negative [facility] Comment on above: Order Comment: Speci men Type: URINE SPECIMENOrdering Facility: [facility] Address: [address] [place] [address] Performed By: #### 2 4356-8 ####[facility] LABORATORYCLIA [id number] [address] [place] [address] [place] Hemoglobin Ql (U) Negative Normal Negative [facility] Comment on above: Order Comment: Speci men Type: URINE SPECIMENOrdering Facility: [facility] Address: [address] [place] [address] Performed By: #### 2 4356-8 ####[facility] LABORATORYCLIA [id number] [place] [address] [place] Ketones Ql (U) Trace Abnormal Negative [facility] Comment on above: Order Comment: Speci men Type: URINE SPECIMENOrdering Facility: [facility] Address: [address] [place] [address] Performed By: #### 2 4356-8 ####[facility] LABORATORYCLIA [id number] [address] [place] Leukocyte esterase Test strip Ql (U) Negative Normal Negative [facility] Comment on above: Order Comment: Speci men Type: URINE SPECIMENOrdering Facility: [facility] Address: [address] [place] [address] Performed By: #### 2 4356-8 ####[facility] LABORATORYCLIA [id number] [address] [place] Nitrite Ql (U) Negative Normal Negative [facility] Comment on above: Order Comment: Speci men Type: URINE SPECIMENOrdering Facility: [facility] Address: [address] [place] [address] Performed By: #### 2 4356-8 ####[facility] LABORATORYCLIA [id number] [address] [place] pH (U) 6.5 [pH] Normal 5.0-8.0 [facility] Comment on above: Order Comment: Speci men Type: URINE SPECIMENOrdering Facility: [facility] Address: [address] [place] [address] Performed By: #### 2 4356-8 ####L[facility] LABORATORYCLIA [id number] [address] [place] [address] [place] Protein (U) [Mass/Vol] Negative Normal Negative [facility] Comment on above: Order Comment: Speci men Type: URINE SPECIMENOrdering Facility: [facility] Address: [address] [place] [address] Performed By: #### 2 4356-8 ####[facility] LABORATORYCLIA [id number] [place] [address] [place] RBC LM.HPF (Urine sed) [#/Area] 0-3 /HPF Normal 0-3 /HPF [facility] Comment on above: Order Comment: Speci men Type: URINE SPECIMENOrdering Facility: [facility] Address: [address] [place] [address] Performed By: #### 2 4356-8 ####[facility] LABORATORYCLIA [id number] [place] [address] [place] Specific gravity (U) [Rel density] 1.020 Normal 1.005-1.030 [facility] Comment on above: Order Comment: Speci men Type: URINE SPECIMENOrdering Facility: [facility] Address: [address] [place] [address] Performed By: #### 2 4356-8 ####L[facility] LABORATORYCLIA [id number] [address] [place] Urobilinogen Ql (U) 1.0 EU/dL Normal 0.2-1.0 EU/dL [facility] Comment on above: Order Comment: Speci men Type: URINE SPECIMENOrdering Facility: [facility] Address: [address] [place] [address] Performed By: #### 2 4356-8 ####[facility] LABORATORYCLIA [id number] [address] [place] WBC LM.HPF (Urine sed) [#/Area] 0-5 /HPF Normal 0-5 /HPF [facility] Comment on above: Order Comment: Speci men Type: URINE SPECIMENOrdering Facility: [facility] Address: [address], [place] [address] Performed By: #### 2 4356-8 ####LATTER-DAY LABORATORYIA [id number] [address] [address] [place] Basic Metabolic Profon 05-30 Anion gap [Moles/Vol] 12 mmol/L Normal 9-17 [facility] Comment on above: Performed By: #### B MP, LIP, LIVP, CDP, HCG #### [facility] [address] [place], [place] [id number] Ground [employer] Operator: Jennifer Freire MD BUN/CRE Ratio 7 Low 9-20 [facility] Comment on above: Performed By: #### B MP, LIP, LIVP, CDP, HCG #### [facility] [address] [place], [place] [id number] [employer] Operator: Jennifer Freire MD Calcium [Mass/Vol] 9.8 mg/dL Normal 8.6-10.4 [facility] Comment on above: Performed By: #### B MP, LIP, LIVP, CDP, HCG #### [facility] [address] [place], [place] [phone] [employer] Operator: Jennifer Freire MD Chloride [Moles/Vol] 99 mmol/L Normal 98-107 [facility] Comment on above: Performed By: #### B MP, LIP, LIVP, CDP, HCG #### [facility] [address] [place], [place] [phone] [employer] Operator: Jennifer Freire MD CO2 [Moles/Vol] 24 mmol/L Normal 20-31 [facility] Comment on above: Performed By: #### B MP, LIP, LIVP, CDP, HCG #### [facility] [address] [place], [place] [phone] [employer] Operator: Jennifer Freire MD Creatinine [Mass/Vol] 0.7 mg/dL Normal 0.5-0.9 [facility] Comment on above: Performed By: #### B MP, LIP, LIVP, CDP, HCG #### [facility] [address] [place] [address] [employer] Operator: Jennifer Freire MD GFR/1.73 sq M.predicted among non-blacks MDRD (S/P/Bld) [Vol rate/Area] mL/min/{1.73_m2} Normal >60 [facility] Comment on above: Result Comment: These [...] B MP, LIP, LIVP, CDP, HCG #### [facility] [address] [place] [address] [employer] Operator: Jennifer Freire MD Glucose [Mass/Vol] 97 mg/dL Normal 70-99 [facility] Comment on above: Performed By: #### B MP, LIP, LIVP, CDP, HCG #### [facility] [address] [place] [address] [employer] Operator: Jennifer Freire MD Potassium [Moles/Vol] 3.9 mmol/L Normal 3.7-5.3 [facility] Comment on above: Performed By: #### B MP, LIP, LIVP, CDP, HCG #### [facility] [address] [place] [address] [employer] Operator: Jennifer Freire MD Sodium [Moles/Vol] 135 mmol/L Normal 135-144 [facility] Comment on above: Performed By: #### B MP, LIP, LIVP, CDP, HCG #### [facility] [address] [place] [phone] [employer] Operator: Jennifer Freire MD Urea nitrogen [Mass/Vol] 5 mg/dL Low 6-20 [facility] Comment on above: Performed By: #### B MP, LIP, LIVP, CDP, HCG #### [facility] [address] [place] [address] [employer] Operator: Jennifer Freire MD CBC with Diffon 05-30-2023 Abs. Basophil 0.02 k/uL Normal 0.00-0.20 [facility] Comment on above: Performed By: #### B MP, LIP, LIVP, CDP, HCG #### [facility] [address] [place] [address] [employer] Operator: Jennifer Freire MD Abs.Imm.Granulocyte 0.00 k/uL Normal 0.00-0.30 [facility] Comment on above: Performed By: #### B MP, LIP, LIVP, CDP, HCG #### [facility] [address] [place] [phone] [employer] Operator: Jennifer Freire MD Abs.Neutrophil (Seg) 2.21 k/uL Low 2.5-7.0 [facility] Comment on above: Performed By: #### B MP, LIP, LIVP, CDP, HCG #### [facility] [address] [place] [address] [employer] Operator: Jennifer Freire MD Basophils/100 WBC (Bld) 0 % Normal 0-2 [facility] Comment on above: Performed By: #### B MP, LIP, LIVP, CDP, HCG #### [facility] [address] [place] [phone] [employer] Operator: Jennifer Freire MD Eosinophils (Bld) [#/Vol] 0.05 10*3/uL Normal 0.00-0.40 [facility] Comment on above: Performed By: #### B MP, LIP, LIVP, CDP, HCG #### [facility] [address] [place], [place] [phone] [employer] Operator: Jennifer Freire MD Eosinophils/100 WBC (Bld) 1 % Normal 0-5 [facility] Comment on above: Performed By: #### B MP, LIP, LIVP, CDP, HCG #### [facility] [address] [place] [phone] [employer] Operator: Jennifer Friere MD Erythrocyte distribution width (RBC) [Ratio] 16.5 % High 12.1-15.2 [facility] Comment on above: Performed By: #### B MP, LIP, LIVP, CDP, HCG #### [facility] [address] [place] [address] [employer] Operator: Jennifer Freire MD Hematocrit (Bld) [Volume fraction] 37.2 % Normal 36.0-46.0 [facility] Comment on above: Performed By: #### B MP, LIP, LIVP, CDP, HCG #### [facility] [address] [place] [phone] [employer] Operator: Jennifer Freire MD Hemoglobin (Bld) [Mass/Vol] 11.7 g/dL Low 12.0-16.0 [facility] Comment on above: Performed By: #### B MP, LIP, LIVP, CDP, HCG #### [facility] [address] [place] [address] [employer] Operator: Jennifer Ferire MD Immature granulocytes/100 WBC (Bld) 0 % Normal 0-5 [facility] Comment on above: Performed By: #### B MP, LIP, LIVP, CDP, HCG #### [facility] [address] [place] [phone] [employer] Operator: Jennifer Freire MD Lymphocytes (Bld) [#/Vol] 2.45 10*3/uL Normal 1.00-4.80 [facility] Comment on above: Performed By: #### B MP, LIP, LIVP, CDP, HCG #### [facility] [address] [place] [address] [employer] Operator: Jennifer Freire MD Lymphocytes/100 WBC (Bld) 48 % High 15-40 [facility] Comment on above: Performed By: #### B MP, LIP, LIVP, CDP, HCG #### [facility] [address] [place] [address] [employer] Operator: Jennifer Freire MD MCH (RBC) [Entitic mass] 24.2 pg Low 26.0-34.0 [facility] Comment on above: Performed By: #### B MP, LIP, LIVP, CDP, HCG #### [facility] [address] [place] [address] [employer] Operator: Jennifer Freire MD MCHC (RBC) [Mass/Vol] 31.5 g/dL Normal 31.0-37.0 [facility] Comment on above: Performed By: #### B MP, LIP, LIVP, CDP, HCG #### [facility] [address] [place] [address] [employer] Operator: Jennifer Freire MD MCV (RBC) [Entitic vol] 76.9 fL Low 80.0-100.0 [facility] Comment on above: Performed By: #### B MP, LIP, LIVP, CDP, HCG #### [facility] [address] [place] [address] [employer] Operator: Jennifer Freire MD Monocytes (Bld) [#/Vol] 0.37 10*3/uL Normal 0.00-1.00 [facility] Comment on above: Performed By: #### B MP, LIP, LIVP, CDP, HCG #### [facility] [address] [place] [address] [employer] Operator: Jennifer Freire MD Monocytes/100 WBC (Bld) 7 % Normal 4-8 [facility] Comment on above: Performed By: #### B MP, LIP, LIVP, CDP, HCG #### [facility] [address] [place], [place] [phone] ([phone]) [employer] Operator: Jennifer Freire MD Neutrophil (Seg) 43 % Low 47-75 [facility] Comment on above: Performed By: #### B MP, LIP, LIVP, CDP, HCG #### [facility] [address] [place], [place] [phone] ([phone]) [employer] Operator: Jennifer Freire MD Platelet mean volume (Bld) [Entitic vol] 8.7 fL Normal 6.0-12.0 [facility] Comment on above: Performed By: #### B MP, LIP, LIVP, CDP, HCG #### [facility] [address] [place], [place] [phone] (202) [employer] Operator: Jennifer Freire MD Platelets (Bld) [#/Vol] 512 10*3/uL High 140-450 [facility] Comment on above: Performed By: #### B MP, LIP, LIVP, CDP, HCG #### [facility] [address] [place] [address] [employer] Operator: Jennifer Freire MD RBC (Bld) [#/Vol] 4.84 10*6/uL Normal 4.00-5.20 [facility] Comment on above: Performed By: #### B MP, LIP, LIVP, CDP, HCG #### [facility] [address] [place], [place] [phone] ([phone]) [employer] Operator: Jennifer Freire MD WBC (Bld) [#/Vol] 5.1 10*3/uL Normal 3.5-11.0 [facility] Comment on above: Performed By: #### B MP, LIP, LIVP, CDP, HCG #### [facility] [address] [place], [place] [phone] ([phone]) Ground [employer] Operator: Jennifer Freire MD CT ABDOMEN PELVIS W [...] Marilyn Narvaez MD 05/30/23 Final result Normal [facility] HCG Screen, Bloodon 05-30-20 HCG Screen, Blood Negative Normal NEG [facility] Comment on above: Result Comment: Spec imens with hCG levels near the threshold of the test (25 mIU/mL) may give a negative or indeterminate result. In such cases, another test should be performed with a new specimen in 48-72 hours. If early is suspected clinically in this setting, correlation with quantitative serum b-hCG level is suggested. [facility] has confirmed the use of plasma for this test. This has not been cleared or approved by the U.S. Food and Drug Administration. The FDA has determined that such clearance is not necessary. Performed By: #### B MP, LIP, LIVP, CDP, HCG #### [facility] [address] [place] [address] [employer] Operator: Jennifer Freire MD Lipaseon 05-30-2023 Lipase [Catalytic activity/Vol] 28 U/L Normal 13-60 [facility] Comment on above: Performed By: #### B MP, LIP, LIVP, CDP, HCG #### [facility] [address] [place], [place] [phone] [employer] Operator: Jennifer Freire MD Liver Profileon 05-30-2023 Albumin [Mass/Vol] 4.3 g/dL Normal 3.5-5.2 [facility] Comment on above: Performed By: #### B MP, LIP, LIVP, CDP, HCG #### [facility] [address] [place], [place] [phone] [employer] Operator: Jennifer Freire MD Alkaline Phos 86 U/L Normal 35-104 [facility] Comment on above: Performed By: #### B MP, LIP, LIVP, CDP, HCG #### [facility] [address] [place], [place] [phone] [employer] Operator: Jennifer Freire MD ALT [Catalytic activity/Vol] 14 U/L Normal 5-33 [facility] Comment on above: Performed By: #### B MP, LIP, LIVP, CDP, HCG #### [facility] [address] [place], [place] [phone] [employer] Operator: Jennifer Freire MD AST [Catalytic activity/Vol] 18 U/L Normal <32 [facility] Comment on above: Performed By: #### B MP, LIP, LIVP, CDP, HCG #### [facility] [address] [place], [place] [phone] [employer] Operator: Jennifer Freire MD Bilirubin [Mass/Vol] 0.5 mg/dL Normal 0.3-1.2 [facility] Comment on above: Performed By: #### B MP, LIP, LIVP, CDP, HCG #### [facility] [address] [place], [place] [phone] [employer] Operator: Jennifer Freire MD Bilirubin, Indirect Can not be calculated Normal 0.0-1.0 [facility] Comment on above: Performed By: #### B MP, LIP, LIVP, CDP, HCG #### [facility] [address] [place] [address] [employer] Operator: Jennifer Freire MD Bilirubin.indirect [Mass/Vol] mg/dL Normal <0.3 [facility] Comment on above: Performed By: #### B MP, LIP, LIVP, CDP, HCG #### [facility] [address] [place], [place] [phone] [employer] Operator: Jennifer Freire MD Protein [Mass/Vol] 7.9 g/dL Normal 6.4-8.3 [facility] Comment on above: Performed By: #### B MP, LIP, LIVP, CDP, HCG #### [facility] [address] [place] [address] [employer] Operator: Jennifer Freire MD Urinalysis, Routineon 2022 Bilirubin, SemiQt,Ur Negative Normal NEG [facility] Comment on above: Performed By: #### U A #### [facility] [address] [place], [place] [id number] Ground Transportation Operator: Jennifer Freire MD Blood, Urine Negative Normal NEG [facility] Comment on above: Performed By: #### U A #### [facility] [address], [place] [id number] Ground Transportation Operator: Jennifer Freire MD Clarity (U) Clear Normal CLEAR [facility] Comment on above: Performed By: #### U A #### [facility] [address] [facility] [place] [id number] Ground Transportation Operator: Jennifer Freire MD Color (U) Yellow Normal YEL [facility] Comment on above: Performed By: #### U A #### [facility] [address], [place] 0763890 Ground Transportation Operator: Jennifer Freire MD Comment Normal [facility] Comment on above: Performed By: #### U A #### [facility] [address] [place] [address] Ground Transportation Operator: Jennifer Freire MD Glucose Ql (U) Negative Normal NEG [facility] Comment on above: Performed By: #### U A #### [facility] [address] [place] [address] Ground Transportation Operator: Jennifer Freire MD Ketones Ql (U) Negative Normal NEG [facility] Comment on above: Performed By: #### U A #### [facility] [address] [place] [address] Ground Transportation Operator: Jennifer Freire MD Leukocyte esterase Test strip Ql (U) Negative Normal NEG [facility] Comment on above: Performed By: #### U A #### [facility] [address], [place] 7324090 Ground Transportation Operator: Jennifer Freire MD Nitrite,Ur Negative Normal NEG [facility] Comment on above: Performed By: #### U A #### [facility] [address], [place] 1365790 Ground Transportation Operator: Jennifer Freire MD PH,Ur 8.0 Normal 5.0-8.0 [facility] Comment on above: Performed By: #### U A #### [facility] [address] [place] [address] Ground Transportation Operator: Jennifer Freire MD Protein Ql (U) Negative Normal NEG [facility] Comment on above: Performed By: #### U A #### [facility] [address] [place] [address] Ground Transportation Operator: Jennifer Freire MD Spec. [place],Ur 1.010 Normal 1.005-1.030 [facility] Comment on above: Performed By: #### U A #### [facility] [address], [place] 8528890 Ground Transportation Operator: Jennifer Freire MD Urobilinogen,Ur Normal Normal 0.0-1.0 [facility] Comment on above: Performed By: #### U A #### [facility] [address] [place] [address] Ground Transportation Operator: Jennifer Freire MD Discharge Instructionson Discharge Instructions [id number] 120 [id number] #1.00TIFF Normal [facility] ED Clinical Summaryon 2022 ED Clinical Summary [address] [address] ED Clinical Summary Person Information Name: [facility] Age: 38 Years : 1985 Sex: Female Language: Citizen Of [place] PCP: BETTIE MIRELES Marital Status: Visit Id: [...] 05/18/2023 00:57:00 ADDRESS: [address] [place] [id number] PHYS DOC NOTES: MEDICAL INFORMATION: Prescriptions Given: Medications to Continue with No Changes Other Medications alprazolam (alprazolam 0.25 mg Tab) budesonide-formotero l (Symbicort 80/4.5 inhalation aerosol with adapter) citalopram (citalopram 20 mg Tab) By Mouth every day. PATIENT EDUCATION INFORMATION: Instructions: Ovarian Cyst Follow up: With: Address: When: Ino ENCISO, [address] [address] Business (9) In 3 days 05/21/2023 DIAGNOSIS: Bilateral ovarian cysts; Unspecified ovarian cyst, left side Normal [facility] ED Note-Nursingon 05-18-2023 ED Note-Nursing Pt being transported to [place] at this time Normal [facility] ED Note-Physicianon 05-18-20 ED Note-Physician Basic Information [...] and Complexity of Problems Differential Diagnosis: [] [facility] Data External documents reviewed: N/A My [...] of discharge with close follow-up with her AGENTS' RECORDS CLERK at the 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 We discussed [...] 05/21/2023 EST [address], [address] [place] [address]- Business (1) Additional Instructions: Patient [...] (05/17/23 21:12 (more content not included)... Normal [facility] Comment on above: Result Comment: Elec tronically [...] Follow these instructions at home: ? Take gype-fgz-uahccsr and prescription medicines only as told by [...] Reviewed: 11/06/2020 Elsevier Patient Education ? 2022 Placecast. Normal [facility] ED Patient Summaryon 023 ED Patient Summary [address] [address] Patient Discharge Instructions Person Information Name: LIVIA NOYOLA Age: 38 Years Arrival Date: 05/17/2023 20:20:39 Discharge Diagnosis: Bilateral ovarian cysts; Unspecified ovarian cyst, left side Primary Care Physician: BETTIE MIRELES Provider Information Primary Provider: Ritesh Heath DO [employer]:Shazia The exam and treatment you received in the Emergency Department were for an urgent problem and are not intended as complete care. It is important that you follow up with a doctor, nurse practitioner, or physician?s assistant women's tennis coach for ongoing care. If your symptoms become worse or you do not improve as expected and you are unable to reach your usual health care provider, you should return to the Emergency Department. We are available 24 hours a day. LIVIA NOYOLA has been given the following list of patient education materials, prescriptions and follow-up instructions: Follow-up Instructions: With: Address: When: Ino Royal [address] [place] [address] [address] Business (1) In 3 days 05/21/2023 In the event that this physician does not participate in your insurance network, please consult with your insurance company to find a nearby participating provider. Patient Education Materials: Ovarian Cyst A MESSAGE TO ALL PATIENTS REGARDING OPIOIDS PRESCRIPTION OPIOIDS: WHAT YOU NEED TO KNOW Prescription opioids can be used to help relieve mhfkqjca-ww-dhgolr pain and are often prescribed following a [...] be struggling with addiction, tell your health overnight caregiver and ask for guidance or call [facility]?S National Helpline at [phone]. (more content not included)... Normal [facility] UA With Cult Reflexon 2022 Bacteria LM Ql (Urine sed) TRACE Normal Trace [facility] Comment on above: Performed By: #### 2 [id number], [id number] ####[facility] [address] [place] [address] Bilirubin Ql (U) Negative Normal Negative [facility] Comment on above: Performed By: #### 2 6759676, 54930808 ####[facility] [address] [place] [address] Clarity (U) CLEAR Normal Clear [facility] Comment on above: Performed By: #### 2 4668167, 00548519 ####[facility] [address] [place] [address] Color (U) YELLOW Normal Yellow [facility] Comment on above: Performed By: #### 2 6279864, 41243735 ####[facility] [address] [place] [address] Epithelial cells.squamous LM.HPF (Urine sed) [#/Area] 3-4 Normal 0-2 [facility] Comment on above: Performed By: #### 2 3213140, 50087720 ####[facility] [address] [place] [address] Glucose Test strip (U) [Mass/Vol] Negative Normal Negative [facility] Comment on above: Performed By: #### 2 0827648, 00767564 ####[facility] [address] [place] [address] Hemoglobin Ql (U) Negative Normal Negative [facility] Comment on above: Performed By: #### 2 8422675, 87831730 ####[facility] [address] [place] [address] Ketones (U) [Mass/Vol] TRACE Invalid Interpretation Code Negative [facility] Comment on above: Performed By: #### 2 0600391, 04842494 ####[address] [address] Oxford.plasma/Oxford. RBC (Bld) [Mass ratio] 0-3 Normal 0-3 [facility] Comment on above: Performed By: #### 2 1005363, 58522336 ####[facility] [address] [place] [address] Mucus Ql (Urine sed) 2+ Normal Fish [facility] Comment on above: Performed By: #### 2 2255148, 34892546 ####[facility] [address] [place] [address] Nitrite Ql (U) Negative Normal Negative [facility] Comment on above: Performed By: #### 2 3491479, 90728682 ####[facility] [address] [place] [address] pH (U) 6.0 [pH] Invalid Interpretation Code 5.0-9.0 [facility] Comment on above: Performed By: #### 2 4680799, 90288093 ####[facility] [address] [place] [address] Protein (U) [Mass/Vol] Negative Normal Negative [facility] Comment on above: Performed By: #### 2 4915598, 70278859 ####[facility] [address] [place] [address] Specific gravity (U) [Rel density] >=1.030 Invalid Interpretation Code 1.005-1.030 [facility] Comment on above: Performed By: #### 2 3387983, 23612944 ####[facility] [address] [place] [address] Type of Urine collection method Clean Catch Normal [facility] Comment on above: Performed By: #### 2 5926939, 91779105 ####[address] [address] Urobilinogen Qn (U) 2.0 {Ivone'U}/dL Abnormal 0.0-1.0 [facility] Comment on above: Performed By: #### 2 5646001, 70519380 ####[place] [address] WBC Auto Ql (U) Negative Normal Negative [facility] Comment on above: Performed By: #### 2 0686977, 16260764 ####[facility] [address] [place] [address] WBC LM.HPF (Urine sed) [#/Area] 0-5 Normal 0-5 [facility] Comment on above: Performed By: #### 2 0084676, 87073609 ####[address] [address] US Pelvis Non-OB Completeon 05-18-2023 US Pelvis [...] CARMELINA Technical Comments Transabdominal Ultrasound Performed Normal [facility] Auto Diffon 05-17-2023 Basophils/100 WBC (Bld) 0.4 % Normal 0.0-2.0 F [facility] Comment on above: Order Comment: Order Added by Lis Expert. Performed By: #### 2 286697, 40549966, 3155968, 8047422, 2978825, 05339784, 0380114 ####[facility] [address] [place] [address] Basophils/Leukocytes Auto (Bld) [Pure # fraction] 0.0 E9/L Normal 0.0-0.2 [facility] Comment on above: Order Comment: Order Added by Discern Expert. Performed By: #### 2 102042, 27417253, 4245864, 3359225, 6727000, 18600678, 2066422 ####[facility] [address] [place] [address] Eosinophils/100 WBC (Bld) 0.2 % Normal 0.0-8.0 [facility] Comment on above: Order Comment: Order Added by Discern Expert. Performed By: #### 2 494393, 20835421, 6204586, 8172123, 3108350, 04786024, 5535794 ####[facility] [address] [place] [address] Eosinophils/Leukocytes Auto (Bld) [Pure # fraction] 0.0 E9/L Normal 0.0-0.5 [facility] Comment on above: Order Comment: Order Added by Discern Expert. Performed By: #### 2 604719, 62038115, 8928696, 1515335, 2542488, 76267515, 5928055 ####[address] [address] Lymphocytes/100 WBC (Bld) 33.4 % Normal 14.0-50.0 [facility] Comment on above: Order Comment: Order Added by Lis Expert. Performed By: #### 2 039418, 59728274, 6116571, 7203855, 7974825, 10891906, 8631368 ####[facility] [address] [place] [address] Lymphocytes/Leukocytes Auto (Bld) [Pure # fraction] 2.8 E9/L Normal 1.0-4.0 [facility] Comment on above: Order Comment: Order Added by Lis Expert. Performed By: #### 2 366942, 97296448, 9559803, 9037692, 7627769, 34308770, 2087532 ####[place] [address] [place] [address] Monocytes/100 WBC (Bld) 9.1 % Normal 4.0-14.0 [facility] Comment on above: Order Comment: Order Added by Lis Expert. Performed By: #### 2 556930, 68674219, 3865937, 6049329, 8940478, 10653668, 1200179 ####[place] [address] [place] [address] Monocytes/Leukocytes Auto (Bld) [Pure # fraction] 0.8 E9/L Normal 0.2-1.0 [facility] Comment on above: Order Comment: Order Added by Discern Expert. Performed By: #### 2 297571, 77491609, 9833800, 2057409, 6842878, 53653931, 7496029 ####[facility] [address] [place] [address] Neutrophils/100 WBC (Bld) 56.9 % Normal 36.0-75.0 [facility] Comment on above: Order Comment: Order Added by Discern Expert. Performed By: #### 2 048901, 36893362, 4505769, 9315220, 8310974, 06192761, 0705566 ####[facility] [address] [place] [address] Neutrophils/Leukocytes Auto (Bld) [Pure # fraction] 4.8 E9/L Normal 2.0-7.5 [facility] Comment on above: Order Comment: Order Added by Discern Expert. Performed By: #### 2 600941, 34709911, 9251911, 9032933, 6229913, 02130456, 8777914 ####[facility] [address] [place] [address] BMP 05-17-2023 Creatinine [Mass/Vol] 0.8 mg/dL Normal 0.5-1.3 [facility] Comment on above: Performed By: #### 2 938767, 28001358, 0967372, 1685219, 8638077, 22361316, 6335129 ####[facility] [address] [place] [address] Urea nitrogen [Mass/Vol] 5 mg/dL Normal 5-21 [facility] Comment on above: Performed By: #### 2 626164, 32056220, 7304159, 8618465, 5725164, 96479483, 2504382 ####[facility] [address] [place] [address] Urea nitrogen/Creatinine [Mass ratio] 6 No Units Low 10-20 [facility] Comment on above: Performed By: #### 2 442597, 53566137, 7797033, 1694273, 3486230, 37045972, 8774612 ####[facility] [address] [place] [address] Anion gap [Moles/Vol] 11 mmol/L Normal 6-16 [facility] Comment on above: Performed By: #### 2 809061, 04596417, 8419371, 8201329, 0865657, 37011942, 4200695 ####[facility] [address] [place] [address] Calcium [Mass/Vol] 9.3 mg/dL Normal 8.9-11.1 [facility] Comment on above: Performed By: #### 2 491318, 34104699, 4996806, 8122609, 4083325, 34164909, 6985172 ####[facility] [address] [place] [address] Chloride [Moles/Vol] 109 mmol/L Normal 101-111 [facility] Comment on above: Performed By: #### 2 711473, 13831582, 8308772, 2179130, 0568759, 07279365, 9065203 ####[facility] [address] [place] [address] CO2 [Moles/Vol] 23 mmol/L Normal 21-31 [facility] Comment on above: Performed By: #### 2 222466, 24901134, 3007061, 8926912, 9672488, 10906096, 0093009 ####[facility] [address] [place] [address] Glucose [Mass/Vol] 104 mg/dL Normal 55-199 [facility] Comment on above: Result Comment: If t his glucose result represents a fasting glucose, interpretation should refer to the following reference range: 55-99 mg/dL Performed By: #### 2 475318, 28577477, 7780521, 2427156, 0901500, 90831309, 7376208 ####[facility] [address] [place] [address] Potassium [Moles/Vol] 4.1 mmol/L Normal 3.5-5.3 [facility] Comment on above: Performed By: #### 2 555016, 03888916, 5097407, 7565795, 2177106, 47445112, 9900242 ####[facility] [address] [place] [address] Sodium [Moles/Vol] 139 mmol/L Normal 135-145 [facility] Comment on above: Performed By: #### 2 394438, 87470841, 6281499, 3804065, 1319990, 29318752, 3947689 ####[facility] [address] [place] [address] CBC w/ Auto Diffon 3 Erythrocyte distribution width (RBC) [Ratio] 18.7 % High 10.9-14.2 [facility] Comment on above: Performed By: #### 2 576911, 66436051, 3228670, 4683765, 9844060, 19649470, 6551690 ####[address] [address] Hematocrit (Bld) [Volume fraction] 37.4 % Normal 34.0-46.0 [facility] Comment on above: Performed By: #### 2 463352, 72548347, 4222214, 3928000, 7454182, 48650261, 2970549 ####[address] [address] Hemoglobin (Bld) [Mass/Vol] 11.7 g/dL Low 12.0-16.0 [facility] Comment on above: Performed By: #### 2 969966, 20967900, 8890228, 0992075, 1418187, 00961338, 9080193 ####[place] [address] [place] [address] MCH (RBC) [Entitic mass] 24.4 pg Low 27.0-34.0 [facility] Comment on above: Performed By: #### 2 862480, 08229394, 8594648, 6340338, 4172338, 33231492, 8996707 ####[facility] [address] [place] [address] MCHC (RBC) [Mass/Vol] 31.2 g/dL Low 31.4-36.0 [facility] Comment on above: Performed By: #### 2 259279, 73685720, 5364871, 1505426, 0389722, 40285844, 7757192 ####[place] [address] [place] [address] MCV (RBC) [Entitic vol] 78.2 fL Low 80.0-100.0 F [facility] Comment on above: Performed By: #### 2 737884, 92246666, 1415166, 5590020, 4636632, 86810138, 8518909 ####[address] [address] Platelet mean volume (Bld) [Entitic vol] 7.8 fL Normal 6.4-10.8 [facility] Comment on above: Performed By: #### 2 612685, 55997293, 8493388, 5637593, 0924434, 96188025, 1948834 ####[address] [address] Platelets (Bld) [#/Vol] 469.0 E9/L Normal 150.0-500.0 [facility] Comment on above: Performed By: #### 2 098169, 11908239, 5612224, 2826312, 6538724, 38135047, 1814088 ####[place] [address] [place] [address] RBC (Bld) [#/Vol] 4.8 E12/L Normal 4.3-5.9 [facility] Comment on above: Performed By: #### 2 792360, 53735444, 2503954, 7869924, 1675965, 05749304, 3930582 ####[address] [address] WBC corrected for nucl RBC Auto (Bld) [#/Vol] 8.5 E9/L Normal 4.0-11.0 [facility] Comment on above: Performed By: #### 2 761104, 20304682, 8877654, 1536896, 1260620, 63647717, 1945083 ####[facility] [address] [place] [address] Consent for Treatmenton Consent for Treatment [id number] #1.00TIFF Normal [facility] Hep Func Panelon 05-17-2023 Albumin [Mass/Vol] 4.2 g/dL Normal 3.3-5.0 [facility] Comment on above: Performed By: #### 2 923902, 05351072, 6023158, 4372327, 0101597, 39328243, 4867070 ####[facility] [address] [place] [address] Albumin/Globulin (S) [Mass conc ratio] 1.2 Normal 1.1-2.2 [facility] Comment on above: Performed By: #### 2 008626, 89438918, 8089065, 4914906, 9725298, 77880399, 8006726 ####[facility] [address] [place] [address] ALP [Catalytic activity/Vol] 58 Int._Unit/L Normal 21-98 [facility] Comment on above: Performed By: #### 2 675462, 60258878, 1523621, 3737797, 7032131, 50451586, 6837868 ####[facility] [address] [place] [address] ALT No additional P-5'-P [Catalytic activity/Vol] 14 Int._Unit/L Normal 6-46 [facility] Comment on above: Performed By: #### 2 623521, 82078734, 8104822, 9868478, 6715187, 26550944, 5316496 ####[facility] [address] [place] [address]857 AST [Catalytic activity/Vol] 21 Int._Unit/L Normal 5-43 [facility] Comment on above: Performed By: #### 2 680802, 25321383, 0288932, 0989121, 6353343, 74997760, 6106413 ####[facility] [address] [place] [address] Bilirubin [Mass/Vol] 0.6 mg/dL Normal 0.0-1.1 [facility] Comment on above: Performed By: #### 2 860188, 01055982, 8687975, 1229445, 2536700, 88189132, 3137853 ####[place] [address] Bilirubin.direct [Mass/Vol] 0.1 mg/dL Normal 0.1-0.4 [facility] Comment on above: Performed By: #### 2 031688, 62865767, 0787985, 7578917, 1341023, 46344043, 0395625 ####[facility] [address] [place] [address] Bilirubin.indirect [Mass or moles/Vol] 0.5 mg/dL Normal 0.1-0.9 [facility] Comment on above: Performed By: #### 2 327499, 74814402, 1339219, 4518106, 5125491, 93524816, 1818777 ####[facility] [address] [place] [address] Globulin (S) [Mass/Vol] 3.6 g/dL Normal 1.4-4.0 F [facility] Comment on above: Performed By: #### 2 825938, 20999931, 1578170, 5462769, 7111783, 80900622, 3798502 ####[facility] [address] [place] [address] Protein [Mass/Vol] 7.8 g/dL Normal 6.0-7.8 [facility] Comment on above: Performed By: #### 2 415764, 06607373, 3654408, 9597929, 3868693, 07065061, 4428444 ####[facility] [address] [place] [address] Lipase Levelon 05-17-2023 Lipase [Catalytic activity/Vol] 57 U/L Normal 13-58 [facility] Comment on above: Performed By: #### 2 751342, 35020856, 3704437, 8495715, 8712972, 33355241, 3852446 ####[facility] [address] [place] [address] Morphon 05-17-2023 Anisocytosis Ql (Bld) Present Normal [facility] Comment on above: Order Comment: Order Added by Discern Expert. Performed By: #### 2 094928, 57972402, 2228469, 8615860, 2750869, 45073203, 5282531 ####[place] [address] [place] [address] Hypochromia Auto Ql (Bld) Present Normal [facility] Comment on above: Order Comment: Order Added by Discern Expert. Performed By: #### 2 938013, 33287304, 4978055, 1316886, 0733117, 30060842, 0064114 ####[facility] [address] [place] [address] Microcytes Ql (Bld) Present [facility] Comment on above: Order Comment: Order Added by Discern Expert. Performed By: #### 2 023352, 37988463, 5113756, 7376373, 7284003, 70272028, 0928663 ####[facility] [address] [place] [address] Morphology Edson (Bld) [Interp] See Morphology Normal [facility] Comment on above: Order Comment: Order Added by Discern Expert. Performed By: #### 2 684350, 10163285, 4341111, 6054429, 5584654, 07829538, 6401440 ####[facility] [address] [place] [address] Ovalocytes LM Ql (Bld) Present Normal [facility] Comment on above: Order Comment: Order Added by Discern Expert. Performed By: #### 2 902937, 58994322, 5959091, 5417723, 7680731, 01850940, 9816994 ####[facility] [address] [place] [address] U BetaHcg Qualon 05-17-2023 HCG.beta subunit (U) [Moles/Vol] Negative Normal [facility] Comment on above: Performed By: #### 2 0094833, 15518421 ####[facility] [address] [place] [address] eGFRon 05-17-2023 GFR/1.73 sq M.predicted among non-blacks MDRD (S/P/Bld) [Vol rate/Area] 98 mL/min/1.73 m2 Normal >=59 [facility] Comment on above: Order Comment: Order added by Discern Expert. Result Comment: Millinery Copyist franklin kidney disease could be indicated at eGFR's of less than 60 mL/min/1.73m2. Kidney failure is indicated at less than 15 mL/min/1.73m2. Performed By: #### 2 [id number], [id number], [id number], [id number], [id number], [id number], [id number] ####[facility] [address] [place] [address] Alanine aminotransferase [En zymatic activity/volume] in Serum or PlasmaOrdered By: Elier Jackson on 04-30-2023 ALT [Catalytic activity/Vol] 15 U/L 7-52 [facility] Albumin [Mass/volume] in Ser um or Plasma by Bromocresol green (BCG) dye binding methoOrdered By: Elier Jackson on 04-30-2023 Albumin BCG dye [Mass/Vol] 4.3 g/dL 3.5-5.7 [facility] Alkaline phosphatase [Enzyma tic activity/volume] in Serum or PlasmaOrdered By: Elier Jackson on 04-30-2023 ALP [Catalytic activity/Vol] 68 U/L 34-104 [facility] Aspartate aminotransferase [ Enzymatic activity/volume] in Serum or PlasmaOrdered By: Elier Velásquezjulian on 04-30-2023 AST [Catalytic activity/Vol] 17 U/L 13-39 [facility] Automated erythrocytes count in urine sediment (number/area)Ordered By: Elier Velásquezjulian on 04-30-2023 RBC Auto (Urine sed) [#/Area] 5-9 [HPF] 0-4 [facility] Automated leukocytes count i n urine sediment (number/area)Ordered By: Elier Manuel on 04-30-2023 WBC Auto (Urine sed) [#/Area] 0-1 [HPF] 0-4 [facility] Basic Metabolic Panelon 04-13 Anion gap [Moles/Vol] 14.7 mmol/L Normal 6.0-15.0 [facility] Comment on above: Performed By: #### C BC #### [facility] [address] [place] [address] [place] Calcium [Mass/Vol] 9.2 mg/dL Normal 8.6-10.[address] [facility] Comment on above: Performed By: #### C BC #### [facility] [address] [place] [address] [place] Chloride [Moles/Vol] 109 mmol/L High 98-107 [facility] Comment on above: Performed By: #### C BC #### [facility] [address] [place] [address] [place] CO2 [Moles/Vol] 20.1 mmol/L Low 21.0-31.0 [facility] Comment on above: Performed By: #### C BC #### [facility] [address] [place] [address] [place] Creatinine [Mass/Vol] 0.65 mg/dL Normal 0.60-1.20 [facility] Comment on above: Performed By: #### C BC #### [facility] [address] [place] [id number] [place] Creatinine Clr Calc Pharmacy 107.67 Normal [facility] Comment on above: Performed By: #### C BC #### [facility] [address] GFR/1.73 sq M.predicted MDRD (S/P/Bld) [Vol rate/Area] mL/min/{1.73_m2} Normal [facility] Comment on above: Performed By: #### C BC #### [facility] [address] Glucose [Mass/Vol] 100 mg/dL Normal 70-[address] [facility] Comment on above: Result Comment: [facility] Glucose Reference Range is dependent on time and content of last meal. Glucose of more than 200 mg/dL in a nonstressed, ambulatory subject supports the diagnosis of Diabetes Mellitus. ADA recommended reference range Performed By: #### C BC #### [facility] [address] [place] [address] Potassium [Moles/Vol] 3.8 mmol/L Normal 3.5-5.1 [facility] Comment on above: Performed By: #### C BC #### [facility] [address] [place] [address] Sodium [Moles/Vol] 140 mmol/L Normal 136-[address] [facility] Comment on above: Performed By: #### C BC #### [facility] [address] [place] [address] Urea nitrogen [Mass/Vol] 6 mg/dL Low 7-25 [facility] Comment on above: Performed By: #### C BC #### [facility] [address] [place] [address] Basophils Auto (Bld) [#/Vol] Ordered By: Elier Jackson on 04-30-2023 Basophils (Bld) [#/Vol] 0.0 10*3/uL 0.0-0.2 [facility] Basophils/100 WBC Auto (Bld) Ordered By: Elier Jackson on 04-30-2023 Basophils/100 WBC (Bld) 1.3 % . [facility] Bilirubin Test strip Ql (U)O rdered By: Elier Jackson on 04-30-2023 Bilirubin Ql (U) Negative Negative [facility] Bilirubin.direct [Mass/volum e] in Serum or PlasmaOrdered By: Elier Jackson on 04-30-2023 Bilirubin.direct [Mass/Vol] 0.10 mg/dL 0.03-0.18 [facility] Bilirubin.total [Mass/volume ] in Serum or PlasmaOrdered By: Elier Jackson on 04-30-2023 Bilirubin [Mass/Vol] 0.4 mg/dL 0.3-1.0 [facility] Calcium [Mass/volume] in Ser um or PlasmaOrdered By: Elier Jackson on 04-30-2023 Calcium [Mass/Vol] 9.2 mg/dL 8.6-10.[address] [facility] Carbon dioxide, total [Moles /volume] in Serum or PlasmaOrdered By: Elier Jackson on 04-30-2023 CO2 [Moles/Vol] 20.1 mmol/L 21.0-31.0 [facility] Chloride [Moles/volume] in S binu or PlasmaOrdered By: Elier Jackson on 04-30-2023 Chloride [Moles/Vol] 109 mmol/L 98-107 [facility] Color Auto (U)Ordered By: Julian Jackson on 04-30-2023 Color (U) Yellow Yellow [facility] Complete Blood Count Auto Di ffon 04-30-2023 Basophils (Bld) [#/Vol] 0.0 10*3/uL Normal 0.0-0.2 [facility] Comment on above: Result Comment: PERF ORMED BY: [facility] [address] [place] [address] PATHOLOGIST [employer]GANIC LAB WORKER FARNAZ ZULETA M.D. Performed By: #### C BC #### [facility] [address] Basophils/100 WBC (Bld) 1.3 % Normal . [facility] Comment on above: Performed By: #### C BC #### [facility] [address] Eosinophils (Bld) [#/Vol] 0.0 10*3/uL Normal 0.0-0.45 [facility] Comment on above: Performed By: #### C BC #### [address] Eosinophils/100 WBC (Bld) 0.6 % Normal . [facility] Comment on above: Performed By: #### C BC #### [address] Erythrocyte distribution width (RBC) [Ratio] 16.8 % High 11.9-15.3 [facility] Comment on above: Performed By: #### C BC #### [address] Hematocrit (Bld) [Volume fraction] 32.3 % Low 34.0-46.4 [facility] Comment on above: Performed By: #### C BC #### [address] Hemoglobin (Bld) [Mass/Vol] 11.2 g/dL Low 11.8-15.4 [facility] Comment on above: Performed By: #### C BC #### [address] Lymphocytes (Bld) [#/Vol] 1.6 10*3/uL Normal 1.00-4.8 [facility] Comment on above: Performed By: #### C BC #### [address] Lymphocytes/100 WBC (Bld) 44.2 % Normal . [facility] Comment on above: Performed By: #### C BC #### [address] MCH (RBC) [Entitic mass] 30.4 pg Normal 24.7-34.3 [facility] Comment on above: Performed By: #### C BC #### [address] MCV (RBC) [Entitic vol] 87.6 fL Normal 80-100 [facility] Comment on above: Performed By: #### C BC #### [address] Mean Corpuscular HGB Conc 34.7 g/dL Normal 32.0-35.0 [facility] Comment on above: Performed By: #### C BC #### [facility] [address] [place] [address] [place] Monocytes (Bld) [#/Vol] 0.3 10*3/uL Normal 0.0-0.8 [facility] Comment on above: Performed By: #### C BC #### [facility] [address] [place] [address] [place] Monocytes/100 WBC (Bld) 16.58 % Normal 0.00-20.00 [facility] Comment on above: Performed By: #### C BC #### [facility] [address] [place] [address] [place] Monocytes/100 WBC (Bld) 7.0 % Normal . [facility] Comment on above: Performed By: #### C BC #### [facility] [address] Neutrophils (Bld) [#/Vol] 1.7 10*3/uL Low 1.8-7.7 [facility] Comment on above: Performed By: #### C BC #### [facility] [address] [place] [address] [place] Neutrophils/100 WBC (Bld) 46.9 % Normal . [facility] Comment on above: Performed By: #### C BC #### [place] [address] [place] NRBC% 0.1 /100{WBC} Normal 0-0.5 [facility] Comment on above: Performed By: #### C BC #### [facility] [address] [place] [address] [place] Platelet mean volume (Bld) [Entitic vol] 8.0 fL Normal 6.3-10.7 [facility] Comment on above: Performed By: #### C BC #### [place] [address] [place] Platelets (Bld) [#/Vol] 415 10*3/uL Normal 150-450 [facility] Comment on above: Performed By: #### C BC #### [facility] [address] [place] [address] [place] RBC (Bld) [#/Vol] 3.68 10*6/uL Normal 3.60-5.00 [facility] Comment on above: Performed By: #### C BC #### [facility] [address] [place] [address] WBC (Bld) [#/Vol] 3.6 10*3/uL Low 3.8-11.[address] [facility] Comment on above: Performed By: #### C BC #### [address] Creatinine [Mass/volume] in Serum or PlasmaOrdered By: Elier Jackson on 04-30-2023 Creatinine [Mass/Vol] 0.65 mg/dL 0.60-1.20 [facility] Dipstick and Microscopicon 1 06-30-2022 Appearance (U) Clear Normal Clear [facility] Comment on above: Order Comment: Name Collection Type:: Voided Performed By: #### H CGQNT #### [facility] [address] [place] [address] [place] Bacteria,Urine None Seen Normal None Seen [facility] Comment on above: Order Comment: Name Collection Type:: Voided Performed By: #### H CGQNT #### [facility] [address] [place] [address] [place] Bilirubin,Urine Negative Normal Negative [facility] Comment on above: Order Comment: Name Collection Type:: Voided Performed By: #### H CGQNT #### [facility] [address] [place] [address] [place] Color (U) Yellow Normal Yellow [facility] Comment on above: Order Comment: Name Collection Type:: Voided Performed By: #### H CGQNT #### [facility] [address] [place] [address] [place] Glucose Ql (U) Normal Normal Normal [facility] Comment on above: Order Comment: Name Collection Type:: Voided Performed By: #### H CGQNT #### [address] [place] [address] [place] Hyaline Casts,Urine 0-8 Normal 0-8 [facility] Comment on above: Order Comment: Name Collection Type:: Voided Performed By: #### H CGQNT #### [place] [address] [place] Ketones Ql (U) Negative Normal Negative [facility] Comment on above: Order Comment: Name Collection Type:: Voided Performed By: #### H CGQNT #### [address] Leukocyte esterase Test strip Ql (U) Negative Normal Negative [facility] Comment on above: Order Comment: Name Collection Type:: Voided Performed By: #### H CGQNT #### [place] [address] [place] Nitrite,Urine Negative Normal Negative [facility] Comment on above: Order Comment: Name Collection Type:: Voided Performed By: #### H CGQNT #### [address] Occult Blood,Urine 2+ High Negative [facility] Comment on above: Order Comment: Name Collection Type:: Voided Performed By: #### H CGQNT #### [address] pH (U) 5.5 [pH] Normal 5.0-9.0 [facility] Comment on above: Order Comment: Name Collection Type:: Voided Performed By: #### H CGQNT #### [facility] [address] [place] [address] [place] Protein,Urine Negative Normal Negative [facility] Comment on above: Order Comment: Name Collection Type:: Voided Performed By: #### H CGQNT #### [place] [address] [place] RBC,Urine 5-9 High 0-4 [facility] Comment on above: Order Comment: Name Collection Type:: Voided Performed By: #### H CGQNT #### [facility] [address] [place] [address] [place] Specificy [place],Urine 1.018 Normal 1.001-1.030 [facility] Comment on above: Order Comment: Name Collection Type:: Voided Performed By: #### H CGQNT #### [facility] [address] [place] [address] Squamous Epithelial Cell,Urine 0-1 Normal 0-2 [facility] Comment on above: Order Comment: Name Collection Type:: Voided Performed By: #### H CGQNT #### [facility] [address] [place] [address] Urobilinogen,Urine Normal Normal Normal [facility] Comment on above: Order Comment: Name Collection Type:: Voided Performed By: #### H CGQNT #### [facility] [address] [place] [address] WBC LM.HPF (Urine sed) [#/Area] 0 /[HPF] Normal 0-4 [facility] Comment on above: Order Comment: Name Collection Type:: Voided Performed By: #### H CGQNT #### [facility] [address] [place] [address] Eosinophils Auto (Bld) [#/Vo l]Ordered By: Elier Jackson on 04-30-2023 Eosinophils (Bld) [#/Vol] 0.0 10*3/uL 0.0-0.45 [facility] Eosinophils/100 WBC Auto (Bl d)Ordered By: Elier Jackson on 04-30-2023 Eosinophils/100 WBC (Bld) 0.6 % . [facility] Erythrocyte distribution wid th Auto (RBC) [Ratio]Ordered By: Elier Jackson on 04-30-2023 Erythrocyte distribution width (RBC) [Ratio] 16.8 % 11.9-15.3 [facility] Globulin Calc (S) [Mass/Vol] Ordered By: Elier Jackson on 04-30-2023 Globulin (S) [Mass/Vol] 3.3 g/dL [facility] Glucose [Mass/volume] in Ser um or PlasmaOrdered By: Elier Jackson on 04-30-2023 Glucose [Mass/Vol] 100 mg/dL 70-[address] [facility] Comment on above: ADA recommended refe rence rangeRandom Glucose Reference Range is dependent on time and content of last meal. Glucose of more than 200 mg/dL in a nonstressed, ambulatory subject supports the diagnosis of Diabetes Mellitus. HCG ( test) IA.rapi d Ql (U)Ordered By: Elier Jackson on 04-30-2023 HCG ( test) Ql (U) Negative [facility] HCG,Urineon 04-30-2023 Beta HCG ( test) Ql (U) Negative Normal [facility] Comment on above: Order Comment: Name Collection Type:: Voided Result Comment: PERF ORMED BY: [place] [address] PATHOLOGIST [employer]GANIC LAB WORKER FARNAZ ZULETA M.D. Performed By: #### H CGQNT #### [address] Hematocrit Auto (Bld) [Volum e fraction]Ordered By: Elier Jackson on 04-30-2023 Hematocrit (Bld) [Volume fraction] 32.3 % 34.0-46.4 [facility] Hemoglobin [Mass/volume] in BloodOrdered By: Elier Jackson on 04-30-2023 Hemoglobin (Bld) [Mass/Vol] 11.2 g/dL 11.8-15.4 [facility] Hepatic Panelon 04-30-2023 Albumin [Mass/Vol] 4.3 g/dL Normal 3.5-5.[address] [facility] Comment on above: Performed By: #### C BC #### [address] Albumin/Globulin [Mass ratio] 1.3 {ratio} Normal [facility] Comment on above: Performed By: #### C BC #### [address] ALP [Catalytic activity/Vol] 68 U/L Normal 34-104 [facility] Comment on above: Performed By: #### C BC #### [place] [address] [place] ALT [Catalytic activity/Vol] 15 U/L Normal 7-52 [facility] Comment on above: Performed By: #### C BC #### [facility] [address] AST [Catalytic activity/Vol] 17 U/L Normal 13-39 [facility] Comment on above: Performed By: #### C BC #### [facility] [address] Bilirubin [Mass/Vol] 0.4 mg/dL Normal 0.3-1.0 [facility] Comment on above: Performed By: #### C BC #### [facility] [address] Bilirubin,Indirect 0.3 mg/dL Normal [facility] Comment on above: Performed By: #### C BC #### [facility] [address] Bilirubin.indirect [Mass/Vol] 0.10 mg/dL Normal 0.03-0.18 [facility] Comment on above: Performed By: #### C BC #### [facility] [address] Globulin (S) [Mass/Vol] 3.3 g/dL Normal [facility] Comment on above: Performed By: #### C BC #### [facility] [address] Protein [Mass/Vol] 7.6 g/dL Normal 6.4-8.[address] [facility] Comment on above: Performed By: #### C BC #### [facility] [address] Ketones Auto test strip (U) [Mass/Vol]Ordered By: Elier Jackson on 04-30-2023 Ketones (U) [Mass/Vol] Negative Negative [facility] - UrinalysisOrder ed By: Elier Jackson on 04-30-2023 Hyaline casts LM Ql (Urine sed) 0-8 [LPF] 0-8 [facility] Leukocytes [#/volume] correc flo for nucleated erythrocytes in Blood by Automated counOrdered By: Elier Jackson on 04-30-2023 WBC corrected for nucl RBC Auto (Bld) [#/Vol] 3.6 10*3/uL 3.8-11.6 [facility] Lipaseon 04-30-2023 Lipase [Catalytic activity/Vol] 31.0 U/L Normal 11.0-82.0 [facility] Comment on above: Result Comment: PERF ORMED BY: [place] [address] PATHOLOGIST [employer] LAB WORKER FARNAZ ZULETA M.D. Performed By: #### C BC #### [address] Lipase [Enzymatic activity/v olume] in Serum or PlasmaOrdered By: Elier Jackson on 04-30-2023 Lipase [Catalytic activity/Vol] 31.0 U/L 11.0-82.0 [facility] Lymphocytes Auto (Bld) [#/Vo l]Ordered By: Elier Jackson on 04-30-2023 Lymphocytes (Bld) [#/Vol] 1.6 10*3/uL 1.00-4.8 [facility] Lymphocytes/100 WBC Auto (Bl d)Ordered By: Elier Jackson on 04-30-2023 Lymphocytes/100 WBC (Bld) 44.2 % . [facility] MCH Auto (RBC) [Entitic mass ]Ordered By: Elier Jackson on 04-30-2023 MCH (RBC) [Entitic mass] 30.4 pg 24.7-34.3 [facility] MCHC Auto (RBC) [Mass/Vol]Or dered By: Elier Jackson on 04-30-2023 MCHC (RBC) [Mass/Vol] 34.7 g/dL 32.0-35.0 [facility] MCV Auto (RBC) [Entitic vol] Ordered By: Elier Jackson on 04-30-2023 MCV (RBC) [Entitic vol] 87.6 fL 80-100 [facility] Monocyte distribution width [Entitic volume] in Blood by AutomatedOrdered By: Elier Jackson on 04-30-2023 Monocyte distribution width Auto (Bld) [Entitic vol] 16.58 % 0.00-20.00 [facility] Monocytes Auto (Bld) [#/Vol] Ordered By: Elier Jackson on 04-30-2023 Monocytes (Bld) [#/Vol] 0.3 10*3/uL 0.0-0.8 [facility] Monocytes/100 WBC Auto (Bld) Ordered By: Elier Jackson on 04-30-2023 Monocytes/100 WBC (Bld) 7.0 % . [facility] Neutrophils Auto (Bld) [#/Vo l]Ordered By: Elier Jackson on 04-30-2023 Neutrophils (Bld) [#/Vol] 1.7 10*3/uL 1.8-7.7 [facility] Neutrophils/100 WBC Auto (Bl d)Ordered By: Elier Jackson on 04-30-2023 Neutrophils/100 WBC (Bld) 46.9 % . [facility] Nitrite Test strip Ql (U)Ord ered By: Elier Jackson on 04-30-2023 Nitrite Ql (U) Negative Negative [facility] No Panel InformationOrdered By: Elier Jackson on 04-30-2023 Estimated GFR (CKD-EPI) > 60.0 mL/Min [facility] Creatinine Clearance (Chem 107.67 [facility] Nucleated erythrocytes [Pres ence] in Blood by Automated countOrdered By: Elier Jackson on 04-30-2023 Nucleated RBC Auto Ql (Bld) 0.1 /100{WBC} 0-0.5 [facility] Platelet mean volume Auto (B ld) [Entitic vol]Ordered By: Elier Jackson on 04-30-2023 Platelet mean volume (Bld) [Entitic vol] 8.0 fL 6.3-10.7 [facility] Platelets Auto (Bld) [#/Vol] Ordered By: Elier Jackson on 04-30-2023 Platelets (Bld) [#/Vol] 415 10*3/uL 150-450 [facility] Potassium [Moles/volume] in Serum or PlasmaOrdered By: Elier Jackson on 04-30-2023 Potassium [Moles/Vol] 3.8 mmol/L 3.5-5.1 [facility] Protein Auto test strip (U) [Mass/Vol]Ordered By: Elier Jackson on 04-30-2023 Protein (U) [Mass/Vol] Negative Negative [facility] Protein [Mass/volume] in Ser um or PlasmaOrdered By: Elier Jackson on 04-30-2023 Protein [Mass/Vol] 7.6 g/dL 6.4-8.[address] [facility] RBC Auto (Bld) [#/Vol]Ordere d By: Elier Jackson on 04-30-2023 RBC (Bld) [#/Vol] 3.68 10*6/uL 3.60-5.00 [facility] Serum or plasma albumin/glob ulin mass ratioOrdered By: Elier Jackson on 04-30-2023 Albumin/Globulin [Mass ratio] 1.3 {ratio} [facility] Serum or plasma anion gap de terminationOrdered By: Elier Jackson on 04-30-2023 Anion gap [Moles/Vol] 14.7 mmol/L 6.0-15.0 [facility] Serum or plasma non-glucuron idated bilirubin measurement (mass/volume)Ordered By: Elier Jackson on 04-30-2023 Bilirubin.indirect [Mass/Vol] 0.3 mg/dL [facility] Sodium [Moles/volume] in Ser um or PlasmaOrdered By: Elier Jackson on 04-30-2023 Sodium [Moles/Vol] 140 mmol/L 136-[address] [facility] Specific gravity Auto test s trip (U) [Rel density]Ordered By: Elier Jackson on 04-30-2023 Specific gravity (U) [Rel density] 1.018 1.001-1.030 [facility] Squamous epithelial cells de tection in urine sediment by light microscopyOrdered By: Elier Jackson on 04-30-2023 Epithelial cells.squamous LM Ql (Urine sed) 0-1 [HPF] 0-2 [facility] US pelvic completeon 023 US pelvic complete [facility] Main [place] [id number] Ultrasound Report Signed Patient: Livia Noyola MR#: [id number] : 1985 Acct:[id number] Age/Sex: 38 / F ADM Date: 04/30/23 Loc: ER Room: Type: [facility] ER Attending Dr: Ordering Provider: Elier Jackson DO Date of Service: 04/30/23 US/US pelvic complete: L pelvic pain ([id number]) US/US transvaginal: LT PELVIC PAIN Copies to: [...] Betancur Jr., PariOEbenezer04/30/2023 6:24 PM Dictation Location: [place] [address] Tech: Brooke Hodge Transcribed By: [facility] 04/30/231823 Dictated By: Dennis Betancur Jr, DO 04/30/231820 Signed By: 04/30/231823 Normal [facility] Urea nitrogen [Mass/volume] in Serum or PlasmaOrdered By: Elier Jackson on 04-30-2023 Urea nitrogen [Mass/Vol] 6 mg/dL 7- [facility] Urine bacteria detection by automated methodOrdered By: Elier Jackson on 04-30-2023 Bacteria Auto Ql (U) None seen None Seen [facility] Urine clarity by refractomet ry automatedOrdered By: Eleir Jackson on 04-30-2023 Clarity Refractometry automated (U) Clear Clear [facility] Urine glucose measurement by automated test strip (mass/volume)Ordered By: Elier Jackson on 04-30-2023 Glucose Auto test strip (U) [Mass/Vol] Normal mg/dL Normal [facility] Urine hemoglobin detection b y automated test stripOrdered By: Elier Manuel on 04-30-2023 Hemoglobin Auto test strip Ql (U) 2+ Negative [facility] Urine leukocyte esterase det ection by automated test stripOrdered By: Elier Jackson on 04-30-2023 Leukocyte esterase Auto test strip Ql (U) Negative Negative [facility] Urobilinogen Auto test strip (U) [Mass/Vol]Ordered By: Elier Jackson on 04-30-2023 Urobilinogen (U) [Mass/Vol] Normal mg/dL Normal [facility] WBC Auto (Bld) [#/Vol]Ordere d By: Elier Jackson on 04-30-2023 WBC (Bld) [#/Vol] 3.6 10*3/uL 3.8-11.[address] [facility] pH Auto test strip (U)Ordere d By: Elier Jackson on 04-30-2023 pH (U) 5.5 [pH] 5.0-9.0 [facility] Auto Diffon 04-24-2023 Basophils/100 WBC (Bld) 0.3 % Normal 0.0-2.0 [facility] Comment on above: Order Comment: Order Added by Discern Expert. Performed By: #### 2 [id number] ####[facility] [address] [place] [address] Basophils/Leukocytes Auto (Bld) [Pure # fraction] 0.0 E9/L Normal 0.0-0.2 [facility] Comment on above: Order Comment: Order Added by Discern Expert. Performed By: #### 2 216292, 9332381, 4519455, 46831772, 32539048 ####[facility] [address] [place] [address] Eosinophils/100 WBC (Bld) 0.9 % Normal 0.0-8.0 [facility] Comment on above: Order Comment: Order Added by Discern Expert. Performed By: #### 2 889581, 9639576, 9635363, 57449257, 61515806 ####[facility] [address] [place] [address] Eosinophils/Leukocytes Auto (Bld) [Pure # fraction] 0.0 E9/L Normal 0.0-0.5 [facility] Comment on above: Order Comment: Order Added by Discern Expert. Performed By: #### 2 879851, 8263147, 8683087, 01405482, 22206717 ####[place] [place] [address] Lymphocytes/100 WBC (Bld) 49.9 % Normal 14.0-50.0 [facility] Comment on above: Order Comment: Order Added by Lis Expert. Performed By: #### 2 735404, 3176189, 8861766, 82318346, 13792952 ####[address] [place] [address] Lymphocytes/Leukocytes Auto (Bld) [Pure # fraction] 2.3 E9/L Normal 1.0-4.0 [facility] Comment on above: Order Comment: Order Added by Lis Expert. Performed By: #### 2 924128, 9383099, 4857323, 49688152, 63287063 ####[address] [address] Monocytes/100 WBC (Bld) 7.1 % Normal 4.0-14.0 [facility] Comment on above: Order Comment: Order Added by Lis Expert. Performed By: #### 2 024706, 4932629, 1310819, 42342043, 48993645 ####[address] [address] Monocytes/Leukocytes Auto (Bld) [Pure # fraction] 0.3 E9/L Normal 0.2-1.0 [facility] Comment on above: Order Comment: Order Added by Lis Expert. Performed By: #### 2 795309, 3207778, 8203651, 97595406, 25912905 ####[facility] [address] [place] [address] Neutrophils/100 WBC (Bld) 41.8 % Normal 36.0-75.0 [facility] Comment on above: Order Comment: Order Added by Discern Expert. Performed By: #### 2 042435, 5077889, 0735646, 40168897, 93260099 ####[facility] [address] [place] [address] Neutrophils/Leukocytes Auto (Bld) [Pure # fraction] 2.0 E9/L Normal 2.0-7.5 [facility] Comment on above: Order Comment: Order Added by Discern Expert. Performed By: #### 2 547805, 7222408, 3722050, 36221475, 03994077 ####[facility] [address] [place] [address] B hCG Qualon 04-24-2023 Beta HCG ( test) Ql Negative Normal [facility] Comment on above: Performed By: #### 2 001613, 0081188, 5015433, 62439293, 04390164 ####[facility] [address] [place] [address] BMPon 04-24-2023 Creatinine [Mass/Vol] 0.7 mg/dL Normal 0.5-1.3 [facility] Comment on above: Performed By: #### 2 017794, 3474833, 5209133, 23393402, 72771628 ####[facility] [address] [place] [address] Urea nitrogen [Mass/Vol] 6 mg/dL Normal 5-21 [facility] Comment on above: Performed By: #### 2 875967, 8944026, 0806289, 05569629, 15058051 ####[facility] [address] [place] [address] Urea nitrogen/Creatinine [Mass ratio] 9 No Units Low 10-20 [facility] Comment on above: Performed By: #### 2 287679, 7305770, 4007480, 90720665, 74578577 ####[facility] [address] [place] [address] Anion gap [Moles/Vol] 14 mmol/L Normal 6-16 [facility] Comment on above: Performed By: #### 2 504222, 3033948, 3479757, 25954786, 10611382 ####[facility] [address] [place] [address] Calcium [Mass/Vol] 9.4 mg/dL Normal 8.9-11.1 [facility] Comment on above: Performed By: #### 2 593962, 1782863, 2044365, 27746403, 48760712 ####[facility] [address] [place] [address] Chloride [Moles/Vol] 105 mmol/L Normal 101-111 [facility] Comment on above: Performed By: #### 2 743014, 8538193, 4897379, 79554097, 25131498 ####[facility] [address] [place] [address] CO2 [Moles/Vol] 23 mmol/L Normal 21-31 [facility] Comment on above: Performed By: #### 2 821074, 2440271, 8228666, 41948145, 75782639 ####[facility] [address] [place] [address] Glucose [Mass/Vol] 95 mg/dL Normal 55-199 [facility] Comment on above: Result Comment: If t his glucose result represents a fasting glucose, interpretation should refer to the following reference range: 55-99 mg/dL Performed By: #### 2 728460, 0331885, 9108329, 02048175, 48281163 ####[facility] [address] [place] [address] Potassium [Moles/Vol] 3.8 mmol/L Normal 3.5-5.3 [facility] Comment on above: Performed By: #### 2 102421, 7391913, 9984271, 36022124, 68678033 ####[facility] [address] [place] [address] Sodium [Moles/Vol] 138 mmol/L Normal 135-145 [facility] Comment on above: Performed By: #### 2 668890, 0760220, 5981327, 52507196, 52556819 ####[facility] [address] [place] [address] CBC w/ Auto Diffon 3 Erythrocyte distribution width (RBC) [Ratio] 15.9 % High 10.9-14.2 [facility] Comment on above: Performed By: #### 2 415144, 8990863, 8785840, 73332613, 17530870 ####[facility] [address] [place] [address] Hematocrit (Bld) [Volume fraction] 33.7 % Low 34.0-46.0 [facility] Comment on above: Performed By: #### 2 585103, 8371880, 2985070, 31704972, 63315187 ####[facility] [address] [place] [address] Hemoglobin (Bld) [Mass/Vol] 11.7 g/dL Low 12.0-16.0 [facility] Comment on above: Performed By: #### 2 063123, 3185897, 8132044, 06461392, 88920149 ####[facility] [address] [place] [address] MCH (RBC) [Entitic mass] 29.7 pg Normal 27.0-34.0 [facility] Comment on above: Performed By: #### 2 147272, 9821071, 0898299, 25255240, 29846997 ####[facility] [address] [place] [address] MCHC (RBC) [Mass/Vol] 34.7 g/dL Normal 31.4-36.0 [facility] Comment on above: Performed By: #### 2 741190, 6668970, 7398958, 22757118, 23695679 ####[facility] [address] [place] [address] MCV (RBC) [Entitic vol] 85.8 fL Normal 80.0-100.0 [facility] Comment on above: Performed By: #### 2 099627, 6535948, 9673072, 60106093, 83707918 ####[address] [place] [address] Platelet mean volume (Bld) [Entitic vol] 8.2 fL Normal 6.4-10.8 [facility] Comment on above: Performed By: #### 2 140721, 1731995, 5627177, 88651849, 17066366 ####[address] [address] Platelets (Bld) [#/Vol] 398.0 E9/L Normal 150.0-500.0 [facility] Comment on above: Performed By: #### 2 562345, 6972153, 3581332, 66780837, 85405864 ####[address] [address] RBC (Bld) [#/Vol] 3.9 E12/L Low 4.3-5.9 [facility] Comment on above: Performed By: #### 2 975031, 7794144, 5167793, 61359006, 07366700 ####[address] [address] WBC corrected for nucl RBC Auto (Bld) [#/Vol] 4.7 E9/L Normal 4.0-11.0 [facility] Comment on above: Performed By: #### 2 329710, 8192717, 1361429, 39352895, 96467331 ####[address] [address] CHEMISTRYOrdered By: SYSTEM SYSTEM on 04-24-2023 Anion gap [Moles/Vol] 14 mmol/L Normal 6 - 16 mEq/L [facility] Calcium [Mass/Vol] 9.4 mg/dL Normal 8.9 - 11. 1 mg/dL [facility] Chloride [Moles/Vol] 105 mmol/L Normal 101 - 1 11 mmol/L [facility] CO2 [Moles/Vol] 23 mmol/L Normal 21 - 31 mmol/L [facility] Creatinine [Mass/Vol] 0.7 mg/dL Normal 0.5 - 1.3 mg/dL [facility]isol GFR/1.73 sq M.predicted among non-blacks MDRD (S/P/Bld) [Vol rate/Area] 115 mL/min/1.73 m2 Normal >=59mL/min/1 .73 m2 [facility] Chem S Comment on above: Interpretive Data: C hronic kidney disease could be indicated at eGFR's of less than 60 mL/min/1.73m2. Kidney failure is indicated at less than 15 mL/min/1.73m2. Glucose [Mass/Vol] 95 mg/dL Normal 55 - 199 mg/dL [facility] Comment on above: Interpretive Data: I f this glucose result represents a fasting glucose, interpretation should refer to the following reference range: 55-99 mg/dL Potassium [Moles/Vol] 3.8 mmol/L Normal 3.5 - 5.3 mmol/L [facility] Sodium [Moles/Vol] 138 mmol/L Normal 135 - 145 mmol/L [facility] Urea nitrogen [Mass/Vol] 6 mg/dL Normal 5 - 21 mg/dL [facility] Urea nitrogen/Creatinine [Mass ratio] 9 mg/mg Low 10 - 20 [facility] [place] CT Abdomen/Pelvis w/ Contras ton 04-24-2023 [...] 300 Contrast amount in ml's: 100 Normal [facility] Consent for Treatmenton 04-13 Consent for Treatment [id number] #1.00TIFF Normal [facility] Discharge Instructionson Discharge Instructions [id number] 110 [id number] #1.00TIFF Normal [facility] ED Clinical Summaryon 2022 ED Clinical Summary [place] [id number] ED Clinical Summary Person Information Name: LIVIA NOYOLA/[facility] Age: 38 Years : 1985 Sex: Female Language: Citizen Of [place] PCP: BETTIE MIRELES Marital Status: Visit Id: [...] 04/24/2023 16:04:18 ADDRESS: [address] [place] [id number] PHYS DOC NOTES: MEDICAL INFORMATION: Prescriptions Given: New Medications [facility]/pharmacy #[id number], [address] [place], [place] [id number], [phone] oxycodone (oxyCODONE 5 mg Cap) 1 Capsules [...] up: With: Address: When: YOUR OBGYN at [facility] In 3 days 04/27/2023 Comments: Seek [...] Abdominal pain, acute, left lower quadrant Normal [facility] ED Note-Physicianon 04-24-20 ED Note-Physician Basic Information [...] is benign. I did review on clinic [facility]. She has a visit at [facility] for similar symptoms in the middle of [...] for home. She will follow-up with her AGENTS' RECORDS CLERK. Return precautions were discussed. All questions were answered. The patient was discharged home. Assessment/Plan Abdominal pain, acute, left lower quadrant (R10.32: Left lower quadrant pain) Ordered: oxycodone, 5 mg = 1 cap(s), Oral, q6hr, PRN Pain 8-10, X 3 day(s), # 12 cap(s), Refills(s) 0, Pharmacy: [facility]/pharmacy #[id number], 165.1, cm, 04/24/23 13:32:00 EST, [...] With When Contact Information YOUR OBGYN at [facility] In 3 days 04/27/2023 EST Additional [...] follow-up with (more content not included)... Normal [facility] Comment on above: Result Comment: Elec tronically [...] these instructions at home: Medicines ? Take dvkf-yrp-bkxtdie and prescription medicines only as told by [...] your condition for any changes. ? Take ceeu-rnq-nnqfglz and prescription medicines only as told by [...] provider. Document Revised: 07/18/2020 Document Reviewed: 10/08/2019 Else[employer]form Patient Education ? 2022 [employer] Normal [facility] ED Patient Summaryon 023 ED Patient Summary [place] [id number] Patient Discharge Instructions Person Information Name: LIVIA NOYOLA Age: 38 Years Arrival Date: 04/24/2023 13:12:30 Discharge Diagnosis: Abdominal pain, acute, left lower quadrant Primary Care Physician: BETTIE MIRELES Provider Information Primary Provider: Jignesh Dumont DO [employer]:Shazia The exam and treatment you received in the Emergency Department were for an urgent problem and are not intended as complete care. It is important that you follow up with a doctor, nurse practitioner, or physician?s assistant women's tennis coach for ongoing care. If your symptoms become [...] Instructions: With: Address: When: YOUR OBGYN at [facility] In 3 days 04/27/2023 Comments: Seek [...] opioids can be used to help relieve rvdocujh-dw-tqaxel pain and are often prescribed following a [...] Talk about (more content not included)... Normal [facility] HEMATOLOGYOrdered By: Siteminis SYSTEM on 04-24-2023 Basophils/100 WBC (Bld) 0.3 [...] test) Ql Negative (04/24/23 1:55 PM) Normal [facility] Man Sero UA With Cult Reflexon 2022 Bacteria LM Ql (Urine sed) TRACE Normal Trace [facility] Comment on above: Performed By: #### 1 [id number] ####[facility] [address] [place] [address] Bilirubin Ql (U) Negative Normal Negative [facility] Comment on above: Performed By: #### 1 [id number] ####[facility] [address] [place] [address] Clarity (U) CLEAR Normal Clear [facility] Comment on above: Performed By: #### 1 9654860 ####[facility] [address] [place] [address] Color (U) STRAW Abnormal Yellow [facility] Comment on above: Performed By: #### 1 9331222 ####[address] [address] Epithelial cells.squamous LM.HPF (Urine sed) [#/Area] 3-4 Normal 0-2 [facility] Comment on above: Performed By: #### 1 2809604 ####[address] [place] [address] Glucose Test strip (U) [Mass/Vol] Negative Normal Negative [facility] Comment on above: Performed By: #### 1 3800417 ####[address] [address] Hemoglobin Ql (U) Negative Normal Negative [facility] Comment on above: Performed By: #### 1 8886491 ####[address] [address] Ketones (U) [Mass/Vol] Negative Normal Negative [facility] Comment on above: Performed By: #### 1 9394906 ####[address] [address] Oxford.plasma/Oxford. RBC (Bld) [Mass ratio] 0-3 Normal 0-3 [facility] Comment on above: Performed By: #### 1 0121540 ####[address] [address] Nitrite Ql (U) Negative Normal Negative [facility] Comment on above: Performed By: #### 1 2438565 ####[address] [address] pH (U) 7.0 [pH] Invalid Interpretation Code 5.0-9.0 [facility] Comment on above: Performed By: #### 1 3415743 ####[address] [address] Protein (U) [Mass/Vol] Negative Normal Negative [facility] Comment on above: Performed By: #### 1 8475213 ####[address] [address] Specific gravity (U) [Rel density] <=1.005 Invalid Interpretation Code 1.005-1.030 [facility] Comment on above: Performed By: #### 1 3942898 ####[facility] [address] [place] [address] Type of Urine collection method Clean Catch Normal [facility] Comment on above: Performed By: #### 1 1935100 ####[facility] [address] [place] [address] Urobilinogen Qn (U) 0.2 {Ivone'U}/dL Normal 0.0-1.0 [facility] Comment on above: Performed By: #### 1 1715843 ####[facility] [address] [place] [address] WBC Auto Ql (U) TRACE Abnormal Negative [facility] Comment on above: Performed By: #### 1 2023738 ####[facility] [address] [place] [address] WBC LM.HPF (Urine sed) [#/Area] 0-5 Normal 0-5 [facility] Comment on above: Performed By: #### 1 5963732 ####[facility] [address] [place] [address] URINALYSISOrdered By: Chance Guthrie on 04-24-2023 Bacteria [...] PM) Normal Negative [facility] UA Auto SS Oxford.plasma/Oxford. RBC (Bld) [Mass ratio] 0-3 /HPF Normal [...] [facility] UA Auto SS Urobilinogen Qn (U) 0.2932438 {Ivone'U}/dL Normal 0.0 - 1.0 EU/dL [facility] UA Auto SS WBC Auto Ql (U) Trace *ABN* (04/24/23 2:56 PM) Invalid Interpretation Code Negative [facility] UA Auto SS WBC LM.HPF (Urine sed) [#/Area] 0-5 /HPF Normal 0-5/HPF [facility] UA Auto SS eGFRon 04-24-2023 GFR/1.73 sq M.predicted among non-blacks MDRD (S/P/Bld) [Vol rate/Area] 115 mL/min/1.73 m2 Normal >=59 [facility] Comment on above: Order Comment: Order added by Discern Expert. Result Comment: Millinery Copyist franklin kidney disease could be indicated at eGFR's of less than 60 mL/min/1.73m2. Kidney failure is indicated at less than 15 mL/min/1.73m2. Performed By: #### 2 707139, 8605547, 8139753, 17963269, 88713013 ####[facility] [address] [place] [address] Anisocytosis LM Ql (Bld)Orde red By: Ming Childress on 04-02-2023 Anisocytosis Ql (Bld) Moderate [facility] Automated erythrocytes count in urine sediment (number/area)Ordered By: Ming Childress on 04-02-2023 RBC Auto (Urine sed) [#/Area] 20-49 [HPF] 0-4 [facility] Automated leukocytes count i n urine sediment (number/area)Ordered By: Ming Childress on 04-02-2023 WBC Auto (Urine sed) [#/Area] 3-4 [HPF] 0-4 [facility] Basic Metabolic Panelon 03-14 Anion gap [Moles/Vol] 14.2 mmol/L Normal 6.0-15.0 [facility] Comment on above: Performed By: #### H CGQNT #### [facility] [address] Calcium [Mass/Vol] 9.2 mg/dL Normal 8.6-10.[address] [facility] Comment on above: Performed By: #### H CGQNT #### [facility] [address] Chloride [Moles/Vol] 108 mmol/L High 98-107 [facility] Comment on above: Performed By: #### H CGQNT #### [facility] [address] CO2 [Moles/Vol] 18.5 mmol/L Low 21.0-31.0 [facility] Comment on above: Performed By: #### H CGQNT #### [facility] [address] [place] [address] [place] Creatinine [Mass/Vol] 0.84 mg/dL Normal 0.60-1.20 [facility] Comment on above: Performed By: #### H CGQNT #### [facility] [address] [place] [address] [place] Creatinine Clr Calc Pharmacy 97.72 Normal [facility] Comment on above: Result Comment: PERF ORMED BY: [place] [address] PATHOLOGIST ORGANIC LAB WORKER FARNAZ ZULETA M.D. Performed By: #### H CGQNT #### [facility] [address] [place] [address] [place] GFR/1.73 sq M.predicted MDRD (S/P/Bld) [Vol rate/Area] mL/min/{1.73_m2} Normal [facility] Comment on above: Performed By: #### H CGQNT #### [facility] [address] [place] [address] [place] Glucose [Mass/Vol] 94 mg/dL Normal 70-[address] [facility] Comment on above: Result Comment: [employer] Glucose Reference Range is dependent on time and content of last meal. Glucose of more than 200 mg/dL in a nonstressed, ambulatory subject supports the diagnosis of Diabetes Mellitus. ADA recommended reference range Performed By: #### H CGQNT #### [facility] [address] [place] [address] [place] Potassium [Moles/Vol] 3.7 mmol/L Normal 3.5-5.1 [facility] Comment on above: Performed By: #### H CGQNT #### [facility] [address] [place] [address] [place] Sodium [Moles/Vol] 137 mmol/L Normal 136-[address] [facility] Comment on above: Performed By: #### H CGQNT #### [facility] [address] [place] [address] [place] Urea nitrogen [Mass/Vol] 9 mg/dL Normal 7-25 [facility] Comment on above: Performed By: #### H CGQNT #### [facility] [address] [place] [address] [place] Basophils Auto (Bld) [#/Vol] Ordered By: Ming Childress on 04-02-2023 Basophils (Bld) [#/Vol] N/A [facility] Basophils/100 WBC Auto (Bld) Ordered By: Ming Childress on 04-02-2023 Basophils/100 WBC (Bld) N/A [facility] Basophils/100 WBC Manual cnt (Bld)Ordered By: Ming Childress on 04-02-2023 Basophils/100 WBC (Bld) 1 % 0-2 [facility] Bilirubin Test strip Ql (U)O rdered By: Ming Childress on 04-02-2023 Bilirubin Ql (U) Negative Negative [facility] Calcium [Mass/volume] in Ser um or PlasmaOrdered By: Ming Childress on 04-02-2023 Calcium [Mass/Vol] 9.2 mg/dL 8.6-10.[address] [facility] Carbon dioxide, total [Moles /volume] in Serum or PlasmaOrdered By: Ming Childress on 04-02-2023 CO2 [Moles/Vol] 18.5 mmol/L 21.0-31.0 [facility] Chloride [Moles/volume] in S binu or PlasmaOrdered By: Ming Childress on 04-02-2023 Chloride [Moles/Vol] 108 mmol/L 98-107 [facility] Color Auto (U)Ordered By: Carmen Childress on 04-02-2023 Color (U) Yellow Yellow [facility] Creatinine [Mass/volume] in Serum or PlasmaOrdered By: Ming Childress on 04-02-2023 Creatinine [Mass/Vol] 0.84 mg/dL 0.60-1.20 [facility] Diff and CBCon 04-02-2023 Anisocytosis Ql (Bld) Moderate Normal [facility] Comment on above: Performed By: #### H CGQNT #### [facility] [address] [place] [address] [place] Basophils/100 WBC (Bld) 1 % Normal 0-2 [facility] Comment on above: Performed By: #### H CGQNT #### [facility] [address] [place] [id number] [place] Eosinophils/100 WBC (Bld) 4 % High 1-3 [facility] Comment on above: Performed By: #### H CGQNT #### [facility] [address] [place] [address] [place] Erythrocyte distribution width (RBC) [Ratio] 15.2 % Normal 11.9-15.3 [facility] Comment on above: Performed By: #### H CGQNT #### [address] Hematocrit (Bld) [Volume fraction] 36.1 % Normal 34.0-46.4 [facility] Comment on above: Performed By: #### H CGQNT #### [address] Hemoglobin (Bld) [Mass/Vol] 11.5 g/dL Low 11.8-15.4 [facility] Comment on above: Performed By: #### H CGQNT #### [address] Hypochromasia Slight Normal [facility] Comment on above: Performed By: #### H CGQNT #### [address] Lymphocytes/100 WBC (Bld) 43 % High 18-42 [facility] Comment on above: Performed By: #### H CGQNT #### [address] MCH (RBC) [Entitic mass] 24.5 pg Low 24.7-34.3 [facility] Comment on above: Performed By: #### H CGQNT #### [address] MCV (RBC) [Entitic vol] 77.3 fL Low 80-100 [facility] Comment on above: Performed By: #### H CGQNT #### [address] Mean Corpuscular HGB Conc 31.8 g/dL Low 32.0-35.0 [facility] Comment on above: Performed By: #### H CGQNT #### [address] Monocytes/100 WBC (Bld) 18.83 % Normal 0.00-20.00 [facility] Comment on above: Performed By: #### H CGQNT #### [address] Monocytes/100 WBC (Bld) 5 % Normal 2-11 [facility] Comment on above: Performed By: #### H CGQNT #### [facility] [address] [place] [address] [place] Nucleated Red Blood Cell 3 /100{WBC} High 0-0 [facility] Comment on above: Performed By: #### H CGQNT #### [facility] [address] [place] [address] [place] Ovalocytes Slight Normal [facility] Comment on above: Performed By: #### H CGQNT #### [facility] [address] [place] [address] Platelet Estimate Increased Normal Normal [facility] Comment on above: Performed By: #### H CGQNT #### [address] Platelet mean volume (Bld) [Entitic vol] 8.1 fL Normal 6.3-10.7 [facility] Comment on above: Result Comment: PERF ORMED BY: [place] [address] PATHOLOGIST ORGANIC LAB WORKER FARNAZ ZULETA M.D. Performed By: #### H CGQNT #### [facility] [address] [place] [address] Platelet Morphology Normal Normal Normal [facility] Comment on above: Result Comment: PERF ORMED BY: [place] [address] PATHOLOGIST ORGANIC LAB WORKER FARNAZ ZULETA M.D. Performed By: #### H CGQNT #### [facility] [address] [place] [address] [place] Platelets (Bld) [#/Vol] 492 10*3/uL High 150-450 [facility] Comment on above: Performed By: #### H CGQNT #### [facility] [address] [place] [address] [place] Poikilocytosis Slight Normal [facility] Comment on above: Performed By: #### H CGQNT #### [facility] [address] [place] [address] [place] Polychromasia Moderate Normal [facility] Comment on above: Performed By: #### H CGQNT #### [facility] [address] [place] [address] [place] RBC (Bld) [#/Vol] 4.67 10*6/uL Normal 3.60-5.00 [facility] Comment on above: Performed By: #### H CGQNT #### [address] Segmented neutrophils/100 WBC (Bld) 47 % Low 50-70 [facility] Comment on above: Performed By: #### H CGQNT #### [facility] [address] [place] [address] Smudge Cells Slight Normal [facility] Comment on above: Performed By: #### H CGQNT #### [address] Toxic Vacuolation Slight Normal [facility] Comment on above: Performed By: #### H CGQNT #### [facility] [address] [place] [address] WBC (Bld) [#/Vol] 6.8 10*3/uL Normal 3.8-11.[address] [facility] Comment on above: Performed By: #### H CGQNT #### [facility] [address] [place] [address] [place] Dipstick and Microscopicon 1 Appearance (U) Clear Normal Clear [facility] Comment on above: Order Comment: Name Collection Type:: Clean-Voided Midstream Performed By: #### U HCG, ADDONUAPLUS #### [facility] [address] [place] [address] [place] Bacteria,Urine None Seen Normal None Seen [facility] Comment on above: Order Comment: Name Collection Type:: Clean-Voided Midstream Performed By: #### U HCG, ADDONUAPLUS #### [place] [address] [place] Bilirubin,Urine Negative Normal Negative [facility] Comment on above: Order Comment: Name Collection Type:: Clean-Voided Midstream Performed By: #### U HCG, ADDONUAPLUS #### [facility] [address] [place] [address] [place] Color (U) Yellow Normal Yellow [facility] Comment on above: Order Comment: Name Collection Type:: Clean-Voided Midstream Performed By: #### U HCG, ADDONUAPLUS #### [facility] [address] [place] [address] [place] Glucose Ql (U) Normal Normal Normal [facility] Comment on above: Order Comment: Name Collection Type:: Clean-Voided Midstream Performed By: #### U HCG, ADDONUAPLUS #### [facility] [address] [place] [address] [place] Hyaline Casts,Urine 0-8 Normal 0-8 [facility] Comment on above: Order Comment: Name Collection Type:: Clean-Voided Midstream Performed By: #### U HCG, ADDONUAPLUS #### [facility] [address] [place] [address] [place] Ketones Ql (U) Trace High Negative [facility] Comment on above: Order Comment: Name Collection Type:: Clean-Voided Midstream Performed By: #### U HCG, ADDONUAPLUS #### [place] [address] [place] Leukocyte esterase Test strip Ql (U) 1+ High Negative [facility] Comment on above: Order Comment: Name Collection Type:: Clean-Voided Midstream Performed By: #### U HCG, ADDONUAPLUS #### [facility] [address] [place] [address] [place] Nitrite,Urine Negative Normal Negative [facility] Comment on above: Order Comment: Name Collection Type:: Clean-Voided Midstream Performed By: #### U HCG, ADDONUAPLUS #### [place] [address] [place] Occult Blood,Urine 3+ High Negative [facility] Comment on above: Order Comment: Name Collection Type:: Clean-Voided Midstream Performed By: #### U HCG, ADDONUAPLUS #### [facility] [address] [place] [address] pH (U) 6.0 [pH] Normal 5.0-9.0 [facility] Comment on above: Order Comment: Name Collection Type:: Clean-Voided Midstream Performed By: #### U HCG, ADDONUAPLUS #### [facility] [address] [place] [address] Protein,Urine Negative Normal Negative [facility] Comment on above: Order Comment: Name Collection Type:: Clean-Voided Midstream Performed By: #### U HCG, ADDONUAPLUS #### [address] RBC,Urine 20-49 High 0-4 [facility] Comment on above: Order Comment: Name Collection Type:: Clean-Voided Midstream Performed By: #### U HCG, ADDONUAPLUS #### [address] Specificy [place],Urine 1.018 Normal 1.001-1.030 [facility] Comment on above: Order Comment: Name Collection Type:: Clean-Voided Midstream Performed By: #### U HCG, ADDONUAPLUS #### [address] Squamous Epithelial Cell,Urine 3-4 High 0-2 [facility] Comment on above: Order Comment: Name Collection Type:: Clean-Voided Midstream Performed By: #### U HCG, ADDONUAPLUS #### [facility] [address] [place] [address] Urobilinogen,Urine Normal Normal Normal [facility] Comment on above: Order Comment: Name Collection Type:: Clean-Voided Midstream Performed By: #### U HCG, ADDONUAPLUS #### [address] WBC,Urine 3-4 Normal 0-4 [facility] Comment on above: Order Comment: Name Collection Type:: Clean-Voided Midstream Performed By: #### U HCG, ADDONUAPLUS #### [address] [place] [address] [place] Eosinophils Auto (Bld) [#/Vo l]Ordered By: Ming Childress on 04-02-2023 Eosinophils (Bld) [#/Vol] N/A [facility] Eosinophils/100 WBC Auto (Bl d)Ordered By: Ming Childress on 04-02-2023 Eosinophils/100 WBC (Bld) N/A [facility] Eosinophils/100 WBC Manual c nt (Bld)Ordered By: Mnig Childress on 04-02-2023 Eosinophils/100 WBC (Bld) 4 % 1-3 [facility] Erythrocyte distribution wid th Auto (RBC) [Ratio]Ordered By: Ming Childress on 04-02-2023 Erythrocyte distribution width (RBC) [Ratio] 15.2 % 11.9-15.3 [facility] Glucose [Mass/volume] in Ser um or PlasmaOrdered By: Ming Childress on 04-02-2023 Glucose [Mass/Vol] 94 mg/dL 70-[address] [facility] Comment on above: ADA recommended refe rence rangeRandom Glucose Reference Range is dependent on time and content of last meal. Glucose of more than 200 mg/dL in a nonstressed, ambulatory subject supports the diagnosis of Diabetes Mellitus. HCG ( test) IA.rapi d Ql (U)Ordered By: Ming Childress on 04-02-2023 HCG ( test) Ql (U) Negative [facility] HCG,Urineon 04-02-2023 Beta HCG ( test) Ql (U) Negative Normal [facility] Comment on above: Order Comment: Name Collection Type:: Clean-Voided Midstream Result Comment: PERF ORMED BY: [facility] [address] [place] [address] PATHOLOGIST [employer] WORKER FARNAZ ZULETA M.D. Performed By: #### U HCG, ADDONUAPLUS #### [facility] [address] [place] [address] Hematocrit Auto (Bld) [Volum e fraction]Ordered By: Ming Childress on 04-02-2023 Hematocrit (Bld) [Volume fraction] 36.1 % 34.0-46.4 [facility] Hemoglobin [Mass/volume] in BloodOrdered By: Ming Childress on 04-02-2023 Hemoglobin (Bld) [Mass/Vol] 11.5 g/dL 11.8-15.4 [facility] Hypochromia LM Ql (Bld)Order ed By: Ming Childress on 04-02-2023 Hypochromia Ql (Bld) Slight [facility] Ketones Auto test strip (U) [Mass/Vol]Ordered By: Ming Childress on 04-02-2023 Ketones (U) [Mass/Vol] Trace Negative [facility] - UrinalysisOrder ed By: Ming Childress on 04-02-2023 Hyaline casts LM Ql (Urine sed) 0-8 [LPF] 0-8 [facility] Leukocytes [#/volume] correc flo for nucleated erythrocytes in Blood by Automated counOrdered By: Ming Childress on 04-02-2023 WBC corrected for nucl RBC Auto (Bld) [#/Vol] 6.8 10*3/uL 3.8-11.6 [facility] Lymphocytes Auto (Bld) [#/Vo l]Ordered By: Ming Childress on 04-02-2023 Lymphocytes (Bld) [#/Vol] N/A [facility] Lymphocytes/100 WBC Auto (Bl d)Ordered By: Ming Childress on 04-02-2023 Lymphocytes/100 WBC (Bld) N/A [facility] Lymphocytes/100 WBC Manual c nt (Bld)Ordered By: Ming Childress on 04-02-2023 Lymphocytes/100 WBC (Bld) 43 % 18-42 [facility] MCH Auto (RBC) [Entitic mass ]Ordered By: Ming Childress on 04-02-2023 MCH (RBC) [Entitic mass] 24.5 pg 24.7-34.3 [facility] MCHC Auto (RBC) [Mass/Vol]Or dered By: Ming Childress on 04-02-2023 MCHC (RBC) [Mass/Vol] 31.8 g/dL 32.0-35.0 [facility] MCV Auto (RBC) [Entitic vol] Ordered By: Ming Childress on 04-02-2023 MCV (RBC) [Entitic vol] 77.3 fL 80-100 [facility] Monocyte distribution width [Entitic volume] in Blood by AutomatedOrdered By: Ming Childress on 04-02-2023 Monocyte distribution width Auto (Bld) [Entitic vol] 18.83 % 0.00-20.00 [facility] Monocytes Auto (Bld) [#/Vol] Ordered By: Ming Childress on 04-02-2023 Monocytes (Bld) [#/Vol] N/A [facility] Monocytes/100 WBC Auto (Bld) Ordered By: Ming Childress on 04-02-2023 Monocytes/100 WBC (Bld) N/A [facility] Monocytes/100 WBC Manual cnt (Bld)Ordered By: Ming Childress on 04-02-2023 Monocytes/100 WBC (Bld) 5 % 2-11 [facility] Neutrophils Auto (Bld) [#/Vo l]Ordered By: Ming Childress on 04-02-2023 Neutrophils (Bld) [#/Vol] N/A [facility] Neutrophils/100 WBC Auto (Bl d)Ordered By: Ming Childress on 04-02-2023 Neutrophils/100 WBC (Bld) N/A [facility] Nitrite Test strip Ql (U)Ord ered By: Ming Childress on 04-02-2023 Nitrite Ql (U) Negative Negative [facility] No Panel InformationOrdered By: Ming Childress on 04-02-2023 Estimated GFR (CKD-EPI) > 60.0 mL/Min [facility] Creatinine Clearance (Chem 97.72 [facility] Nucleated RBC/100 WBC Manual cnt (Bld) [Ratio]Ordered By: Ming Childress on 04-02-2023 Nucleated RBC/100 WBC (Bld) [Ratio] 3 /100{WBC} 0-0 [facility] Nucleated erythrocytes [Pres ence] in Blood by Automated countOrdered By: Ming Childress on 04-02-2023 Nucleated RBC Auto Ql (Bld) N/A [facility] Ovalocyte detectionOrdered B y: Ming Childress on 04-02-2023 Ovalocytes LM Ql (Bld) Slight [facility] Platelet adequacy [Presence] in Blood by Light microscopyOrdered By: Ming Childress on 04-02-2023 Platelets LM Ql (Bld) Increased Normal [facility] Platelet mean volume Auto (B ld) [Entitic vol]Ordered By: Ming Childress on 04-02-2023 Platelet mean volume (Bld) [Entitic vol] 8.1 fL 6.3-10.7 [facility] Platelet morphology finding [Identifier] in BloodOrdered By: Ming Childress on 04-02-2023 Platelet morphology finding Nom (Bld) Normal Normal [facility] Platelets Auto (Bld) [#/Vol] Ordered By: Ming Childress on 04-02-2023 Platelets (Bld) [#/Vol] 492 10*3/uL 150-450 [facility] Poikilocytosis [Presence] in Blood by Light microscopyOrdered By: Ming Childress on 04-02-2023 Poikilocytosis LM Ql (Bld) Slight [facility] Polychromasia [Presence] in Blood by Light microscopyOrdered By: Ming Childress on 04-02-2023 Polychromasia LM Ql (Bld) Moderate [facility] Potassium [Moles/volume] in Serum or PlasmaOrdered By: Ming Childress on 04-02-2023 Potassium [Moles/Vol] 3.7 mmol/L 3.5-5.1 [facility] Protein Auto test strip (U) [Mass/Vol]Ordered By: Ming Childress on 04-02-2023 Protein (U) [Mass/Vol] Negative Negative [facility] RBC Auto (Bld) [#/Vol]Ordere d By: Ming Childress on 04-02-2023 RBC (Bld) [#/Vol] 4.67 10*6/uL 3.60-5.00 [facility] RBC morphologyOrdered By: Carmen Childress on 04-02-2023 RBC morphology finding Nom (Bld) N/A [facility] Segmented neutrophils/100 WB C Manual cnt (Bld)Ordered By: Ming Childress on 04-02-2023 Segmented neutrophils/100 WBC (Bld) 47 % 50-70 [facility] Serum or plasma anion gap de terminationOrdered By: Ming Childress on 04-02-2023 Anion gap [Moles/Vol] 14.2 mmol/L 6.0-15.0 [facility] Smudge cell detectionOrdered By: Ming Childress on 04-02-2023 Smudge cells LM Ql (Bld) Slight [facility] Sodium [Moles/volume] in Ser um or PlasmaOrdered By: Ming Childress on 04-02-2023 Sodium [Moles/Vol] 137 mmol/L 136-[address] [facility] Specific gravity Auto test s trip (U) [Rel density]Ordered By: Ming Childress on 04-02-2023 Specific gravity (U) [Rel density] 1.018 1.001-1.030 [facility] Squamous epithelial cells de tection in urine sediment by light microscopyOrdered By: Ming Childress on 04-02-2023 Epithelial cells.squamous LM Ql (Urine sed) 3-4 [HPF] 0-2 [facility] Toxic leukocyte vacuolation detectionOrdered By: Ming Childress on 04-02-2023 Leukocyte toxic vacuoles LM Ql (Bld) Slight [facility] Urea nitrogen [Mass/volume] in Serum or PlasmaOrdered By: Ming Childress on 04-02-2023 Urea nitrogen [Mass/Vol] 9 mg/dL 7-25 [facility] Urine bacteria detection by automated methodOrdered By: Ming Childress on 04-02-2023 Bacteria Auto Ql (U) None seen None Seen [facility] Urine clarity by refractomet ry automatedOrdered By: Ming Childress on 04-02-2023 Clarity Refractometry automated (U) Clear Clear [facility] Urine glucose measurement by automated test strip (mass/volume)Ordered By: Ming Childress on 04-02-2023 Glucose Auto test strip (U) [Mass/Vol] Normal mg/dL Normal [facility] Urine hemoglobin detection b y automated test stripOrdered By: Ming Childress on 04-02-2023 Hemoglobin Auto test strip Ql (U) 3+ Negative [facility] Urine leukocyte esterase det ection by automated test stripOrdered By: Ming Childress on 04-02-2023 Leukocyte esterase Auto test strip Ql (U) 1+ Negative [facility] Urobilinogen Auto test strip (U) [Mass/Vol]Ordered By: Ming Childress on 04-02-2023 Urobilinogen (U) [Mass/Vol] Normal mg/dL Normal [facility] WBC Auto (Bld) [#/Vol]Ordere d By: Ming Childress on 04-02-2023 WBC (Bld) [#/Vol] 6.8 10*3/uL 3.8-11.[address] [facility] pH Auto test strip (U)Ordere d By: Ming Childress on 04-02-2023 pH (U) 6.0 [pH] 5.0-9.0 [facility] Alanine aminotransferase [En zymatic activity/volume] in Serum or PlasmaOrdered By: Ming Childress on 03-29-2023 ALT [Catalytic activity/Vol] 14 U/L 7 [facility] Albumin [Mass/volume] in Ser um or Plasma by Bromocresol green (BCG) dye binding methoOrdered By: Ming Childress on 03-29-2023 Albumin BCG dye [Mass/Vol] 4.0 g/dL 3.5-5.7 [facility] Alkaline phosphatase [Enzyma tic activity/volume] in Serum or PlasmaOrdered By: Ming Childress on 03-29-2023 ALP [Catalytic activity/Vol] 61 U/L 34-104 [facility] Aspartate aminotransferase [ Enzymatic activity/volume] in Serum or PlasmaOrdered By: Ming Childress on 03-29-2023 AST [Catalytic activity/Vol] 19 U/L 13-39 [facility] Basic Metabolic Panelon 03-13 Anion gap [Moles/Vol] 12.4 mmol/L Normal 6.0-15.0 [facility] Comment on above: Performed By: #### B MP, LIPASE, HEPATIC #### [facility] [address] [place] [address] [place] Calcium [Mass/Vol] 8.9 mg/dL Normal 8.6-10.[address] [facility] Comment on above: Performed By: #### B MP, LIPASE, HEPATIC #### [facility] [address] [place] [address] [place] Chloride [Moles/Vol] 107 mmol/L Normal 98-107 [facility] Comment on above: Performed By: #### B MP, LIPASE, HEPATIC #### [facility] [address] [place] [address] [place] CO2 [Moles/Vol] 22.2 mmol/L Normal 21.0-31.0 [facility] Comment on above: Performed By: #### B MP, LIPASE, HEPATIC #### [facility] [address] Creatinine [Mass/Vol] 0.63 mg/dL Normal 0.60-1.20 [facility] Comment on above: Performed By: #### B MP, LIPASE, HEPATIC #### [facility] [address] [place] [address] [place] Creatinine Clr Calc Pharmacy 134.47 [facility] Comment on above: Performed By: #### B MP, LIPASE, HEPATIC #### [facility] [address] [place] [address] [place] GFR/1.73 sq M.predicted MDRD (S/P/Bld) [Vol rate/Area] mL/min/{1.73_m2} [facility] Comment on above: Performed By: #### B MP, LIPASE, HEPATIC #### [facility] [address] [place] [address] [place] Glucose [Mass/Vol] 90 mg/dL Normal 70-[address] [facility] Comment on above: Result Comment: [employer] Glucose Reference Range is dependent on time and content of last meal. Glucose of more than 200 mg/dL in a nonstressed, ambulatory subject supports the diagnosis of Diabetes Mellitus. ADA recommended reference range Performed By: #### B MP, LIPASE, HEPATIC #### [facility] [address] [place] [id number] [place] Potassium [Moles/Vol] 3.6 mmol/L Normal 3.5-5.1 [facility] Comment on above: Performed By: #### B MP, LIPASE, HEPATIC #### [facility] [address] Sodium [Moles/Vol] 138 mmol/L Normal 136-[address] [facility] Comment on above: Performed By: #### B MP, LIPASE, HEPATIC #### [facility] [address] Urea nitrogen [Mass/Vol] 6 mg/dL Low 7-25 [facility] Comment on above: Performed By: #### B MP, LIPASE, HEPATIC #### [facility] [address] [place] [address] [place] Basophils Auto (Bld) [#/Vol] Ordered By: Ming Childress on 03-29-2023 Basophils (Bld) [#/Vol] 0.1 10*3/uL 0.0-0.2 [facility] Basophils/100 WBC Auto (Bld) Ordered By: Ming Childress on 03-29-2023 Basophils/100 WBC (Bld) 1.3 % . [facility] Bilirubin Test strip Ql (U)O rdered By: Ming Childress on 03-29-2023 Bilirubin Ql (U) Negative Negative [facility] Bilirubin.direct [Mass/volum e] in Serum or PlasmaOrdered By: Ming Childress on 03-29-2023 Bilirubin.direct [Mass/Vol] 0.10 mg/dL 0.03-0.18 [facility] Bilirubin.total [Mass/volume ] in Serum or PlasmaOrdered By: Ming Childress on 03-29-2023 Bilirubin [Mass/Vol] 0.3 mg/dL 0.3-1.[address] [facility] [address] abdomen pelvis w conon CT abdomen pelvis w con [facility] [address] [place] [address] [place] [address] CT Scan Report Signed Patient: Livia Noyola MR#: [id number] : 1985 Acct:[id number] Age/Sex: 38 / F ADM Date: 03/29/23 Loc: 3T Room: [address] [place] [address] Type: ADM IN Attending Dr: Christi Aquino [...] Alesha Tejada M.D.03/29/2023 7:14 AM Dictation Location: [place] [address] Transcribed By: [facility] 03/29/23713 Dictated By: Alesha Tejada MD 03/29/2310 Signed By: 03/29/23713 [facility] Calcium [Mass/volume] in Ser um or PlasmaOrdered By: Ming Childress on 03-29-2023 Calcium [Mass/Vol] 8.9 mg/dL 8.6-10.[address] [facility] Carbon dioxide, total [Moles /volume] in Serum or PlasmaOrdered By: Ming Childress on 03-29-2023 CO2 [Moles/Vol] 22.2 mmol/L 21.0-31.0 [facility] Chloride [Moles/volume] in S binu or PlasmaOrdered By: Ming Childress on 03-29-2023 Chloride [Moles/Vol] 107 mmol/L 98-107 [facility] Color Auto (U)Ordered By: Carmen Childress on 03-29-2023 Color (U) Yellow Yellow [facility] Complete Blood Count Auto Di ffon 03-29-2023 Basophils (Bld) [#/Vol] 0.1 10*3/uL Normal 0.0-0.2 [facility] Comment on above: Result Comment: PERF ORMED BY: [place] [address] PATHOLOGIST [employer] WORKER FARNAZ ZULETA M.D. Performed By: #### C BC #### [facility] [address] Basophils/100 WBC (Bld) 1.3 % Normal . [facility] Comment on above: Performed By: #### C BC #### [facility] [address] [place] [address] [place] Eosinophils (Bld) [#/Vol] 0.1 10*3/uL Normal 0.0-0.45 [facility] Comment on above: Performed By: #### C BC #### [facility] [address] [place] [address] [place] Eosinophils/100 WBC (Bld) 1.8 % Normal . [facility] Comment on above: Performed By: #### C BC #### [facility] [address] Erythrocyte distribution width (RBC) [Ratio] 15.2 % Normal 11.9-15.3 [facility] Comment on above: Performed By: #### C BC #### [facility] [address] Hematocrit (Bld) [Volume fraction] 32.6 % Low 34.0-46.4 [facility] Comment on above: Performed By: #### C BC #### [address] Hemoglobin (Bld) [Mass/Vol] 10.4 g/dL Low 11.8-15.4 [facility] Comment on above: Performed By: #### C BC #### [address] Lymphocytes (Bld) [#/Vol] 3.2 10*3/uL Normal 1.00-4.8 [facility] Comment on above: Performed By: #### C BC #### [address] Lymphocytes/100 WBC (Bld) 42.8 % Normal . [facility] Comment on above: Performed By: #### C BC #### [address] MCH (RBC) [Entitic mass] 24.1 pg Low 24.7-34.3 [facility] Comment on above: Performed By: #### C BC #### [address] MCV (RBC) [Entitic vol] 75.2 fL Low 80-100 [facility] Comment on above: Performed By: #### C BC #### [address] Mean Corpuscular HGB Conc 32.0 g/dL Normal 32.0-35.0 [facility] Comment on above: Performed By: #### C BC #### [address] Monocytes (Bld) [#/Vol] 0.6 10*3/uL Normal 0.0-0.8 [facility] Comment on above: Performed By: #### C BC #### [address] [place] [address] [place] Monocytes/100 WBC (Bld) 7.3 % Normal . [facility] Comment on above: Performed By: #### C BC #### [facility] [address] Neutrophils (Bld) [#/Vol] 3.5 10*3/uL Normal 1.8-7.7 [facility] Comment on above: Performed By: #### C BC #### [facility] [address] Neutrophils/100 WBC (Bld) 46.8 % Normal . [facility] Comment on above: Performed By: #### C BC #### [address] NRBC% 0.1 /100{WBC} Normal 0-0.5 [facility] Comment on above: Performed By: #### C BC #### [address] Platelet mean volume (Bld) [Entitic vol] 8.0 fL Normal 6.3-10.7 [facility] Comment on above: Performed By: #### C BC #### [place] [address] [place] Platelets (Bld) [#/Vol] 396 10*3/uL Normal 150-450 [facility] Comment on above: Performed By: #### C BC #### [place] [address] [place] RBC (Bld) [#/Vol] 4.34 10*6/uL Normal 3.60-5.00 [facility] Comment on above: Performed By: #### C BC #### [place] [address] [place] WBC (Bld) [#/Vol] 7.5 10*3/uL Normal 3.8-11.[address] [facility] Comment on above: Performed By: #### C BC #### [place] [address] [place] Creatinine [Mass/volume] in Serum or PlasmaOrdered By: Ming Childress on 03-29-2023 Creatinine [Mass/Vol] 0.63 mg/dL 0.60-1.20 [facility] Eosinophils Auto (Bld) [#/Vo l]Ordered By: Ming Childress on 03-29-2023 Eosinophils (Bld) [#/Vol] 0.1 10*3/uL 0.0-0.45 [facility] Eosinophils/100 WBC Auto (Bl d)Ordered By: Ming Childress on 03-29-2023 Eosinophils/100 WBC (Bld) 1.8 % . [facility] Erythrocyte distribution wid th Auto (RBC) [Ratio]Ordered By: Ming Childress on 03-29-2023 Erythrocyte distribution width (RBC) [Ratio] 15.2 % 11.9-15.3 [facility] Globulin Calc (S) [Mass/Vol] Ordered By: Ming Childress on 03-29-2023 Globulin (S) [Mass/Vol] 2.8 g/dL [facility] Glucose [Mass/volume] in Ser um or PlasmaOrdered By: Ming Childress on 03-29-2023 Glucose [Mass/Vol] 90 mg/dL 70-[address] [facility] Comment on above: ADA recommended refe rence rangeRandom Glucose Reference Range is dependent on time and content of last meal. Glucose of more than 200 mg/dL in a nonstressed, ambulatory subject supports the diagnosis of Diabetes Mellitus. HCG ( test) IAbebeto d Ql (U)Ordered By: Ming Childress on 03-29-2023 HCG ( test) Ql (U) Negative [facility] HCG,Urineon 03-29-2023 Beta HCG ( test) Ql (U) Negative Normal [facility] Comment on above: Order Comment: Name Collection Type:: Clean-Voided Midstream Result Comment: PERF ORMED BY: [place] [address] PATHOLOGIST [employer]GANIC LAB WORKER FARNAZ ZULETA M.D. Performed By: #### H CGQNT #### [facility] [address] [place] [address] [place] Hematocrit Auto (Bld) [Volum e fraction]Ordered By: Ming Arangoarthy on 03-29-2023 Hematocrit (Bld) [Volume fraction] 32.6 % 34.0-46.4 [facility] Hemoglobin [Mass/volume] in BloodOrdered By: Ming Wagnery on 03-29-2023 Hemoglobin (Bld) [Mass/Vol] 10.4 g/dL 11.8-15.4 [facility] Hepatic Panelon 03-29-2023 Albumin [Mass/Vol] 4.0 g/dL Normal 3.5-5.[address] [facility] Comment on above: Performed By: #### B MP, LIPASE, HEPATIC #### [facility] [address] Albumin/Globulin [Mass ratio] 1.4 {ratio} Normal [facility] Comment on above: Performed By: #### B MP, LIPASE, HEPATIC #### [facility] [address] ALP [Catalytic activity/Vol] 61 U/L Normal 34-104 [facility] Comment on above: Performed By: #### B MP, LIPASE, HEPATIC #### [facility] [address] ALT [Catalytic activity/Vol] 14 U/L Normal 7-52 [facility] Comment on above: Performed By: #### B MP, LIPASE, HEPATIC #### [facility] [address] AST [Catalytic activity/Vol] 19 U/L Normal 13-39 [facility] Comment on above: Performed By: #### B MP, LIPASE, HEPATIC #### [facility] [address] [place] [address] [place] Bilirubin [Mass/Vol] 0.3 mg/dL Normal 0.3-1.0 [facility] Comment on above: Performed By: #### B MP, LIPASE, HEPATIC #### [facility] [address] [place] [address] [place] Bilirubin,Indirect 0.2 mg/dL Normal [facility] Comment on above: Performed By: #### B MP, LIPASE, HEPATIC #### [facility] [address] Bilirubin.indirect [Mass/Vol] 0.10 mg/dL Normal 0.03-0.18 [facility] Comment on above: Performed By: #### B MP, LIPASE, HEPATIC #### [facility] [address] Globulin (S) [Mass/Vol] 2.8 g/dL Normal [facility] Comment on above: Performed By: #### B MP, LIPASE, HEPATIC #### [facility] [address] Protein [Mass/Vol] 6.8 g/dL Normal 6.4-8.[address] [facility] Comment on above: Performed By: #### B MP, LIPASE, HEPATIC #### [facility] [address] Ketones Auto test strip (U) [Mass/Vol]Ordered By: Ming Childress on 03-29-2023 Ketones (U) [Mass/Vol] Negative Negative [facility] Lactate [Moles/volume] in Se rum or PlasmaOrdered By: Megan Muniz on 03-29-2023 Lactate [Moles/Vol] 0.8 mmol/L 0.5-2.2 [facility] Lactic Acidon 03-29-2023 Lactate [Moles/Vol] 0.8 mmol/L Normal 0.5-2.2 [facility] Comment on above: Result Comment: PERF ORMED BY: [place] [address] PATHOLOGIST [employer]GANIC LAB WORKER FARNAZ ZULETA M.D. Performed By: #### C BC #### [facility] [address] Leukocytes [#/volume] correc flo for nucleated erythrocytes in Blood by Automated counOrdered By: Ming Childress on 03-29-2023 WBC corrected for nucl RBC Auto (Bld) [#/Vol] 7.5 10*3/uL 3.8-11.6 [facility] Lipaseon 03-29-2023 Lipase [Catalytic activity/Vol] 30.0 U/L Normal 11.0-82.0 [facility] Comment on above: Result Comment: PERF ORMED BY: [place] [address] PATHOLOGIST [employer]GANIC LAB WORKER FARNAZ ZULETA M.D. Performed By: #### B MP, LIPASE, HEPATIC #### [address] Lipase [Enzymatic activity/v olume] in Serum or PlasmaOrdered By: Ming Childress on 03-29-2023 Lipase [Catalytic activity/Vol] 30.0 U/L 11.0-82.0 [facility] Lymphocytes Auto (Bld) [#/Vo l]Ordered By: Ming Childress on 03-29-2023 Lymphocytes (Bld) [#/Vol] 3.2 10*3/uL 1.00-4.8 [facility] Lymphocytes/100 WBC Auto (Bl d)Ordered By: Ming Childress on 03-29-2023 Lymphocytes/100 WBC (Bld) 42.8 % . [facility] MCH Auto (RBC) [Entitic mass ]Ordered By: Ming Childress on 03-29-2023 MCH (RBC) [Entitic mass] 24.1 pg 24.7-34.3 [facility] MCHC Auto (RBC) [Mass/Vol]Or dered By: Ming Childress on 03-29-2023 MCHC (RBC) [Mass/Vol] 32.0 g/dL 32.0-35.0 [facility] MCV Auto (RBC) [Entitic vol] Ordered By: Ming Childress on 03-29-2023 MCV (RBC) [Entitic vol] 75.2 fL 80-100 [facility] Monocytes Auto (Bld) [#/Vol] Ordered By: Ming Childress on 03-29-2023 Monocytes (Bld) [#/Vol] 0.6 10*3/uL 0.0-0.8 [facility] Monocytes/100 WBC Auto (Bld) Ordered By: Ming Childress on 03-29-2023 Monocytes/100 WBC (Bld) 7.3 % . [facility] Neutrophils Auto (Bld) [#/Vo l]Ordered By: Ming Childress on 03-29-2023 Neutrophils (Bld) [#/Vol] 3.5 10*3/uL 1.8-7.7 [facility] Neutrophils/100 WBC Auto (Bl d)Ordered By: Ming Childress on 03-29-2023 Neutrophils/100 WBC (Bld) 46.8 % . [facility] Nitrite Test strip Ql (U)Ord ered By: Ming Childress on 03-29-2023 Nitrite Ql (U) Negative Negative [facility] No Panel InformationOrdered By: Ming Childress on 03-29-2023 Estimated GFR (CKD-EPI) > 60.0 mL/Min [facility] Creatinine Clearance (Chem 134.47 [facility] Nucleated erythrocytes [Pres ence] in Blood by Automated countOrdered By: Ming Childress on 03-29-2023 Nucleated RBC Auto Ql (Bld) 0.1 /100{WBC} 0-0.5 [facility] Platelet mean volume Auto (B ld) [Entitic vol]Ordered By: Ming Childress on 03-29-2023 Platelet mean volume (Bld) [Entitic vol] 8.0 fL 6.3-10.7 [facility] Platelets Auto (Bld) [#/Vol] Ordered By: Ming Childress on 03-29-2023 Platelets (Bld) [#/Vol] 396 10*3/uL 150-450 [facility] Potassium [Moles/volume] in Serum or PlasmaOrdered By: Ming Childress on 03-29-2023 Potassium [Moles/Vol] 3.6 mmol/L 3.5-5.1 [facility] Protein Auto test strip (U) [Mass/Vol]Ordered By: Ming Childress on 03-29-2023 Protein (U) [Mass/Vol] Negative Negative [facility] Protein [Mass/volume] in Ser um or PlasmaOrdered By: Ming Childress on 03-29-2023 Protein [Mass/Vol] 6.8 g/dL 6.4-8.[address] [facility] RBC Auto (Bld) [#/Vol]Ordere d By: Ming Childress on 03-29-2023 RBC (Bld) [#/Vol] 4.34 10*6/uL 3.60-5.00 [facility] Serum or plasma albumin/glob ulin mass ratioOrdered By: Ming Childress on 03-29-2023 Albumin/Globulin [Mass ratio] 1.4 {ratio} [facility] Serum or plasma anion gap de terminationOrdered By: Ming Childress on 03-29-2023 Anion gap [Moles/Vol] 12.4 mmol/L 6.0-15.0 [facility] Serum or plasma non-glucuron idated bilirubin measurement (mass/volume)Ordered By: Ming Childress on 03-29-2023 Bilirubin.indirect [Mass/Vol] 0.2 mg/dL [facility] Sodium [Moles/volume] in Ser um or PlasmaOrdered By: Ming Childress on 03-29-2023 Sodium [Moles/Vol] 138 mmol/L 136-[address] [facility] Specific gravity Auto test s trip (U) [Rel density]Ordered By: Ming Childress on 03-29-2023 Specific gravity (U) [Rel density] 1.003 1.001-1.030 [facility] US transvaginalon 03-29-2023 US transvaginal [facility] [place] [address] Ultrasound Report Signed Patient: Livia Noyola MR#: [id number] 757 : 1985 Acct:[id number] Age/Sex: 38 / F ADM Date: 03/29/23 Loc: Room: [address] [place] [address] Type: ADM IN Attending Dr: Christi Aquino MD Ordering Provider: Ming Childress DO Date of Service: 03/29/23 US/US transvaginal: r/o L ovarian torsion ([id number]) US/US pelvic complete: PAIN Copies to: DO [...] Davi Figueroa M.D.03/29/2023 8:20 AM Dictation Location: [place] [address] Tech: Brooke Hodge Transcribed By: AMBER 03/29/23819 Dictated By: Davi Figueroa DO 03/29/2316 Signed By: 03/29/23819 Normal [facility] Urea nitrogen [Mass/volume] in Serum or PlasmaOrdered By: Ming Childress on 03-29-2023 Urea nitrogen [Mass/Vol] 6 mg/dL 01-04 [facility] Urinalysison 03-29-2023 Appearance (U) Clear Normal Clear [facility] Comment on above: Order Comment: Name Collection Type:: Clean-Voided Midstream Performed By: #### H CGQNT #### [facility] [address] [place] [id number] [place] Bilirubin,Urine Negative Normal Negative [facility] Comment on above: Order Comment: Name Collection Type:: Clean-Voided Midstream Performed By: #### H CGQNT #### [facility] [address] [place] [address] [place] Color (U) Yellow Normal Yellow [facility] Comment on above: Order Comment: Name Collection Type:: Clean-Voided Midstream Performed By: #### H CGQNT #### [facility] [address] [place] [address] [place] Glucose Ql (U) Normal Normal Normal [facility] Comment on above: Order Comment: Name Collection Type:: Clean-Voided Midstream Performed By: #### H CGQNT #### [address] Ketones Ql (U) Negative Normal Negative [facility] Comment on above: Order Comment: Name Collection Type:: Clean-Voided Midstream Performed By: #### H CGQNT #### [address] Leukocyte esterase Test strip Ql (U) Negative Normal Negative [facility] Comment on above: Order Comment: Name Collection Type:: Clean-Voided Midstream Performed By: #### H CGQNT #### [address] Nitrite,Urine Negative Normal Negative [facility] Comment on above: Order Comment: Name Collection Type:: Clean-Voided Midstream Performed By: #### H CGQNT #### [address] Occult Blood,Urine Negative Normal Negative [facility] Comment on above: Order Comment: Name Collection Type:: Clean-Voided Midstream Performed By: #### H CGQNT #### [address] pH (U) 7.5 [pH] Normal 5.0-9.0 [facility] Comment on above: Order Comment: Name Collection Type:: Clean-Voided Midstream Performed By: #### H CGQNT #### [place] [address] [place] Protein,Urine Negative Normal Negative [facility] Comment on above: Order Comment: Name Collection Type:: Clean-Voided Midstream Performed By: #### H CGQNT #### [place] [address] [place] Specificy [place],Urine 1.003 Normal 1.001-1.030 [facility] Comment on above: Order Comment: Name Collection Type:: Clean-Voided Midstream Performed By: #### H CGQNT #### [address] Urobilinogen,Urine Normal Normal Normal [facility] Comment on above: Order Comment: Name Collection Type:: Clean-Voided Midstream Performed By: #### H CGQNT #### [facility] [address] Urine clarity by refractomet ry automatedOrdered By: Ming Childress on 03-29-2023 Clarity Refractometry automated (U) Clear Clear [facility] Urine glucose measurement by automated test strip (mass/volume)Ordered By: Ming Childress on 03-29-2023 Glucose Auto test strip (U) [Mass/Vol] Normal mg/dL Normal [facility] Urine hemoglobin detection b y automated test stripOrdered By: Ming Childress on 03-29-2023 Hemoglobin Auto test strip Ql (U) Negative Negative [facility] Urine leukocyte esterase det ection by automated test stripOrdered By: Ming Childress on 03-29-2023 Leukocyte esterase Auto test strip Ql (U) Negative Negative [facility] Urobilinogen Auto test strip (U) [Mass/Vol]Ordered By: Ming Childress on 03-29-2023 Urobilinogen (U) [Mass/Vol] Normal mg/dL Normal [facility] WBC Auto (Bld) [#/Vol]Ordere d By: Ming Childress on 03-29-2023 WBC (Bld) [#/Vol] 7.5 10*3/uL 3.8-11.[address] [facility] pH Auto test strip (U)Ordere d By: Ming Childress on 03-29-2023 pH (U) 7.5 [pH] 5.0-9.0 [facility] Basic Metabolic Panelon 08-2 Anion gap [Moles/Vol] 11.9 mmol/L Normal 6.0-15.0 [facility] Comment on above: Performed By: #### C BC #### [facility] [address] [place] [address] Calcium [Mass/Vol] 9.2 mg/dL Normal 8.6-10.[address] [facility] Comment on above: Performed By: #### C BC #### [facility] [address] [place] [id number] [place] Chloride [Moles/Vol] 107 mmol/L Normal 98-107 [facility] Comment on above: Performed By: #### C BC #### [facility] [address] [place] [address] [place] CO2 [Moles/Vol] 21.5 mmol/L Normal 21.0-31.0 [facility] Comment on above: Performed By: #### C BC #### [facility] [address] [place] [address] [place] Creatinine [Mass/Vol] 0.71 mg/dL Normal 0.60-1.20 [facility] Comment on above: Performed By: #### C BC #### [facility] [address] [place] [address] [place] Creatinine Clr Calc Pharmacy 115.62 [facility] Comment on above: Performed By: #### C BC #### [place] [address] [place] GFR/1.73 sq M.predicted MDRD (S/P/Bld) [Vol rate/Area] mL/min/{1.73_m2} [facility] Comment on above: Performed By: #### C BC #### [facility] [address] Glucose [Mass/Vol] 99 mg/dL Normal 70-[address] [facility] Comment on above: Result Comment: [employer] Glucose Reference Range is dependent on time and content of last meal. Glucose of more than 200 mg/dL in a nonstressed, ambulatory subject supports the diagnosis of Diabetes Mellitus. ADA recommended reference range Performed By: #### C BC #### [facility] [address] [place] [address] [place] Potassium [Moles/Vol] 3.4 mmol/L Low 3.5-5.1 [facility] Comment on above: Performed By: #### C BC #### [place] [address] [place] Sodium [Moles/Vol] 137 mmol/L Normal 136-[address] [facility] Comment on above: Performed By: #### C BC #### [facility] [address] [place] [address] [place] Urea nitrogen [Mass/Vol] 6 mg/dL Low 7-25 [facility] Comment on above: Performed By: #### C BC #### [facility] [address] Bilirubin Test strip Ql (U)O rdered By: Elier Jackson on 02-06-2023 Bilirubin Ql (U) Negative Negative [facility] CT abdomen pelvis w conon CT abdomen pelvis w con [facility] Main [place] [address] [place] [address] CT Scan Report Signed Patient: Livia Noyola MR#: [id number] 757 : 1985 Acct:[id number] Age/Sex: 38 / F ADM Date: 02/05/23 Loc: ER Room: Type: [facility] ER Attending Dr: Copies to: Elier [...] Betancur Jr., D.O.02/06/2023 11:23 AM Dictation Location: [place] [address] Transcribed By: [facility] 02/06/23 1123 Dictated By: Dennis Betancur Jr, DO 02/06/23 1109 Signed By: 02/06/23 1123 Normal [facility] Color Auto (U)Ordered By: Julian Jackson on 02-06-2023 Color (U) Yellow Yellow [facility] Complete Blood Count Auto Di ffon 02-06-2023 Basophils (Bld) [#/Vol] 0.1 10*3/uL Normal 0.0-0.2 [facility] Comment on above: Result Comment: PERF ORMED BY: [place] [address] PATHOLOGIST [employer]IC [employer] WORKER FARNAZ ZULETA M.D. Performed By: #### C BC #### [address] Basophils/100 WBC (Bld) 1.4 % Normal . [facility] Comment on above: Performed By: #### C BC #### [address] Eosinophils (Bld) [#/Vol] 0.1 10*3/uL Normal 0.0-0.45 [facility] Comment on above: Performed By: #### C BC #### [address] Eosinophils/100 WBC (Bld) 1.5 % Normal . [facility] Comment on above: Performed By: #### C BC #### [address] Erythrocyte distribution width (RBC) [Ratio] 15.9 % High 11.9-15.3 [facility] Comment on above: Performed By: #### C BC #### [address] Hematocrit (Bld) [Volume fraction] 37.3 % Normal 34.0-46.4 [facility] Comment on above: Performed By: #### C BC #### [facility] [address] Hemoglobin (Bld) [Mass/Vol] 11.8 g/dL Normal 11.8-15.4 [facility] Comment on above: Performed By: #### C BC #### [facility] [address] Lymphocytes (Bld) [#/Vol] 3.6 10*3/uL Normal 1.00-4.8 [facility] Comment on above: Performed By: #### C BC #### [address] Lymphocytes/100 WBC (Bld) 44.3 % Normal . [facility] Comment on above: Performed By: #### C BC #### [address] MCH (RBC) [Entitic mass] 24.8 pg Normal 24.7-34.3 [facility] Comment on above: Performed By: #### C BC #### [address] MCV (RBC) [Entitic vol] 78.1 fL Low 80-100 [facility] Comment on above: Performed By: #### C BC #### [address] Mean Corpuscular HGB Conc 31.8 g/dL Low 32.0-35.0 [facility] Comment on above: Performed By: #### C BC #### [address] Monocytes (Bld) [#/Vol] 0.7 10*3/uL Normal 0.0-0.8 [facility] Comment on above: Performed By: #### C BC #### [address] Monocytes/100 WBC (Bld) 17.33 % Normal 0.00-20.00 [facility] Comment on above: Performed By: #### C BC #### [facility] [address] [place] [address] [place] Monocytes/100 WBC (Bld) 8.4 % Normal . [facility] Comment on above: Performed By: #### C BC #### [facility] [address] Neutrophils (Bld) [#/Vol] 3.6 10*3/uL Normal 1.8-7.7 [facility] Comment on above: Performed By: #### C BC #### [facility] [address] Neutrophils/100 WBC (Bld) 44.4 % Normal . [facility] Comment on above: Performed By: #### C BC #### [facility] [address] NRBC% 0.1 /100{WBC} Normal 0-0.5 [facility] Comment on above: Performed By: #### C BC #### [facility] [address] Platelet mean volume (Bld) [Entitic vol] 8.0 fL Normal 6.3-10.7 [facility] Comment on above: Performed By: #### C BC #### [facility] [address] [place] [address] [place] Platelets (Bld) [#/Vol] 398 10*3/uL Normal 150-450 [facility] Comment on above: Performed By: #### C BC #### [facility] [address] [place] [address] [place] RBC (Bld) [#/Vol] 4.78 10*6/uL Normal 3.60-5.00 [facility] Comment on above: Performed By: #### C BC #### [facility] [address] WBC (Bld) [#/Vol] 8.1 10*3/uL Normal 3.8-11.[address] [facility] Comment on above: Performed By: #### C BC #### [place] [id number] [facility] HCG ( test) IA.lazi d Ql (U)Ordered By: Elier Jackson on 02-06-2023 HCG ( test) Ql (U) Negative [facility] HCG,Qualitative Serumon 01-12 HCG,Qualitative Serum Negative Normal [facility] Comment on above: Result Comment: PERF ORMED BY: [place] [address] PATHOLOGIST [employer]GANIC LAB WORKER FARNAZ ZULETA M.D. Performed By: #### C BC #### [address] HCG,Quantitativeon HCG,Quantitative < 0.60 Normal [facility] Comment on above: Result Comment: Appr oximate Approximate hCG Gestational Age Range (mIU/ml) (weeks) 0.2-1 5-50 1-2 50-500 2-3 100-5,000 3-4 500-10,000 4-5 1,000-50,000 5-6 10,000-100,000 6-8 15,000-200,000 8-12 10,000-100,000 PERFORMED BY: [address] [place] [address] PATHOLOGIST [employer]GANIC [employer] WORKER FARNAZ ZULETA M.D. Performed By: #### H CGQNT #### [address] HCG,Urineon 02-06-2023 Beta HCG ( test) Ql (U) Negative Normal [facility] Comment on above: Order Comment: Name Collection Type:: Clean-Voided Midstream Result Comment: PERF ORMED BY: [place] [address] PATHOLOGIST [employer]GAN[employer] LAB WORKER FARNAZ ZULETA M.D. Performed By: #### U A, UHCG #### [facility] [address] [place], [place] [id number] [facility] Hepatic Panelon 02-06-2023 Albumin [Mass/Vol] 4.2 g/dL Normal 3.5-5.[address] [facility] Comment on above: Performed By: #### C BC #### [facility] [address] Albumin/Globulin [Mass ratio] 1.4 {ratio} Normal [facility] Comment on above: Performed By: #### C BC #### [facility] [address] ALP [Catalytic activity/Vol] 52 U/L Normal 34-104 [facility] Comment on above: Performed By: #### C BC #### [facility] [address] [place] [address] ALT [Catalytic activity/Vol] 13 U/L Normal 7-52 [facility] Comment on above: Performed By: #### C BC #### [address] AST [Catalytic activity/Vol] 12 U/L Low 13-39 [facility] Comment on above: Performed By: #### C BC #### [address] Bilirubin [Mass/Vol] 0.3 mg/dL Normal 0.3-1.0 [facility] Comment on above: Performed By: #### C BC #### [address] Bilirubin,Indirect 0.2 mg/dL Normal [facility] Comment on above: Performed By: #### C BC #### [address] Bilirubin.indirect [Mass/Vol] 0.10 mg/dL Normal 0.03-0.18 [facility] Comment on above: Performed By: #### C BC #### [facility] [address] [place] [address] Globulin (S) [Mass/Vol] 3.0 g/dL Normal [facility] Comment on above: Performed By: #### C BC #### [address] Protein [Mass/Vol] 7.2 g/dL Normal 6.4-8.[address] [facility] Comment on above: Performed By: #### C BC #### [address] Ketones Auto test strip (U) [Mass/Vol]Ordered By: Elier Jackson on 02-06-2023 Ketones (U) [Mass/Vol] Negative Negative [facility] Lipaseon 02-06-2023 Lipase [Catalytic activity/Vol] 40.0 U/L Normal 11.0-82.0 [facility] Comment on above: Result Comment: PERF ORMED BY: [place] [address] PATHOLOGIST [employer]IC LAB WORKER FARNAZ ZULETA M.D. Performed By: #### C BC #### [address] Nitrite Test strip Ql (U)Ord ered By: Elier Jackson on 02-06-2023 Nitrite Ql (U) Negative Negative [facility] Protein Auto test strip (U) [Mass/Vol]Ordered By: Elier Jackson on 02-06-2023 Protein (U) [Mass/Vol] Negative Negative [facility] Specific gravity Auto test s trip (U) [Rel density]Ordered By: Elier Jackson on 02-06-2023 Specific gravity (U) [Rel density] 1.007 1.001-1.030 [facility] US pelvic completeon 023 US pelvic complete [facility] Main [place] [address] [place] [address] Ultrasound Report Signed Patient: Livia Noyola MR#: [id number] 757 : 1985 Acct:[id number] Age/Sex: 38 / F ADM Date: 02/05/23 Loc: ER Room: Type: [facility] Attending Dr: Ordering Provider: Elier Jackson DO Date of Service: 02/06/23 US/US pelvic complete: adnexa pain ([id number]) US/US transvaginal: . Copies to: Elier M [...] Betancur Jr., D.O.02/06/2023 11:25 AM Dictation Location: [place] [address] Tech: Jada Jon Transcribed By: [facility] 02/06/23 1125 Dictated By: Dennis Betancur Jr, DO 02/06/23 1123 Signed By: 02/06/23 1125 Normal [facility] Urinalysison 02-06-2023 Appearance (U) Clear Normal Clear [facility] Comment on above: Order Comment: Name Collection Type:: Clean-Voided Midstream Performed By: #### U A, UHCG #### [facility] [address] [place] [address] [place] Bilirubin,Urine Negative Normal Negative [facility] Comment on above: Order Comment: Name Collection Type:: Clean-Voided Midstream Performed By: #### U A, UHCG #### [facility] [address] [place] [id number] [place] Color (U) Yellow Normal Yellow [facility] Comment on above: Order Comment: Name Collection Type:: Clean-Voided Midstream Performed By: #### U A, UHCG #### [facility] [address] [place] [id number] [place] Glucose Ql (U) Normal Normal Normal [facility] Comment on above: Order Comment: Name Collection Type:: Clean-Voided Midstream Performed By: #### U A, UHCG #### [facility] [address] [place] [address] [place] Ketones Ql (U) Negative Normal Negative [facility] Comment on above: Order Comment: Name Collection Type:: Clean-Voided Midstream Performed By: #### U A, UHCG #### [address] Leukocyte esterase Test strip Ql (U) Negative Normal Negative [facility] Comment on above: Order Comment: Name Collection Type:: Clean-Voided Midstream Performed By: #### U A, UHCG #### [place] [address] [place] Nitrite,Urine Negative Normal Negative [facility] Comment on above: Order Comment: Name Collection Type:: Clean-Voided Midstream Performed By: #### U A, UHCG #### [address] Occult Blood,Urine Negative Normal Negative [facility] Comment on above: Order Comment: Name Collection Type:: Clean-Voided Midstream Performed By: #### U A, UHCG #### [facility] [address] [place] [address] [place] pH (U) 7.0 [pH] Normal 5.0-9.0 [facility] Comment on above: Order Comment: Name Collection Type:: Clean-Voided Midstream Performed By: #### U A, UHCG #### [facility] [address] [place] [address] [place] Protein,Urine Negative Normal Negative [facility] Comment on above: Order Comment: Name Collection Type:: Clean-Voided Midstream Performed By: #### U A, UHCG #### [facility] [address] [place] [address] [place] Specificy [place],Urine 1.007 Normal 1.001-1.030 [facility] Comment on above: Order Comment: Name Collection Type:: Clean-Voided Midstream Performed By: #### U A, UHCG #### [facility] [address] [place] [address] Urobilinogen,Urine Normal Normal Normal [facility] Comment on above: Order Comment: Name Collection Type:: Clean-Voided Midstream Performed By: #### U [facility] #### [facility] [address] [place] [phone] [facility] Urine clarity by refractomet ry automatedOrdered By: Elier Jackson on 02-06-2023 Clarity Refractometry automated (U) Clear Clear [facility] Urine glucose measurement by automated test strip (mass/volume)Ordered By: Elier Jackson on 02-06-2023 Glucose Auto test strip (U) [Mass/Vol] Normal mg/dL Normal [facility] Urine hemoglobin detection b y automated test stripOrdered By: Elier Jackson on 02-06-2023 Hemoglobin Auto test strip Ql (U) Negative Negative [facility] Urine leukocyte esterase det ection by automated test stripOrdered By: Elier Jackson on 02-06-2023 Leukocyte esterase Auto test strip Ql (U) Negative Negative [facility] Urobilinogen Auto test strip (U) [Mass/Vol]Ordered By: Elier Jackson on 02-06-2023 Urobilinogen (U) [Mass/Vol] Normal mg/dL Normal [facility] pH Auto test strip (U)Ordere d By: Elier Jackson on 02-06-2023 pH (U) 7.0 [pH] 5.0-9.0 [facility] Alanine aminotransferase [En zymatic activity/volume] in Serum or PlasmaOrdered By: Elier Jackson on 02-05-2023 ALT [Catalytic activity/Vol] 13 U/L 7-52 [facility] Albumin [Mass/volume] in Ser um or Plasma by Bromocresol green (BCG) dye binding methoOrdered By: Elier Jackson on 02-05-2023 Albumin BCG dye [Mass/Vol] 4.2 g/dL 3.5-5.7 [facility] Alkaline phosphatase [Enzyma tic activity/volume] in Serum or PlasmaOrdered By: Elier Jackson on 02-05-2023 ALP [Catalytic activity/Vol] 52 U/L 34-104 [facility] Aspartate aminotransferase [ Enzymatic activity/volume] in Serum or PlasmaOrdered By: Elier Jackson on 02-05-2023 AST [Catalytic activity/Vol] 12 U/L 13-39 [facility] Basophils Auto (Bld) [#/Vol] Ordered By: Elier Jackson on 02-05-2023 Basophils (Bld) [#/Vol] 0.1 10*3/uL 0.0-0.2 [facility] Basophils/100 WBC Auto (Bld) Ordered By: Elier Jackson on 02-05-2023 Basophils/100 WBC (Bld) 1.4 % . [facility] Bilirubin.direct [Mass/volum e] in Serum or PlasmaOrdered By: Elier Jackson on 02-05-2023 Bilirubin.direct [Mass/Vol] 0.10 mg/dL 0.03-0.18 [facility] Bilirubin.total [Mass/volume ] in Serum or PlasmaOrdered By: Elier Jackson on 02-05-2023 Bilirubin [Mass/Vol] 0.3 mg/dL 0.3-1.0 [facility] Calcium [Mass/volume] in Ser um or PlasmaOrdered By: Elier Jackson on 02-05-2023 Calcium [Mass/Vol] 9.2 mg/dL 8.6-10.[address] [facility] Carbon dioxide, total [Moles /volume] in Serum or PlasmaOrdered By: Elier Jackson on 02-05-2023 CO2 [Moles/Vol] 21.5 mmol/L 21.0-31.0 [facility] Chloride [Moles/volume] in S binu or PlasmaOrdered By: Elier Jackson on 02-05-2023 Chloride [Moles/Vol] 107 mmol/L 98-107 [facility] Choriogonadotropin.beta subu nit [Units/volume] in Serum or PlasmaOrdered By: Elier Jackson on 02-05-2023 HCG.beta subunit Qn m[IU]/mL [facility] Comment on above: Approximate Approxim ate hCG Gestational Age Range (mIU/ml) (weeks)0.2-1 5-50 1-2 50-500 2-3 100-5,000 3-4 500-10,000 4-5 1,000-50,000 5-6 10,000-100,000 6-8 15,000-200,000 8-12 10,000-100,000 HCG.beta subunit Qn Negative [facility] Creatinine [Mass/volume] in Serum or PlasmaOrdered By: Elier Jackson on 02-05-2023 Creatinine [Mass/Vol] 0.71 mg/dL 0.60-1.[address] [facility] [facility] Eosinophils Auto (Bld) [#/Vo l]Ordered By: Elier Jackson on 02-05-2023 Eosinophils (Bld) [#/Vol] 0.1 10*3/uL 0.0-0.45 [facility] Eosinophils/100 WBC Auto (Bl d)Ordered By: Elier Jackson on 02-05-2023 Eosinophils/100 WBC (Bld) 1.5 % . [facility] Erythrocyte distribution wid th Auto (RBC) [Ratio]Ordered By: Elier Jackson on 02-05-2023 Erythrocyte distribution width (RBC) [Ratio] 15.9 % 11.9-15.3 [facility] Globulin Calc (S) [Mass/Vol] Ordered By: Elier Jackson on 02-05-2023 Globulin (S) [Mass/Vol] 3.0 g/dL [facility] Glucose [Mass/volume] in Ser um or PlasmaOrdered By: Elier Jackson on 02-05-2023 Glucose [Mass/Vol] 99 mg/dL 70-[address] [facility] Comment on above: ADA recommended refe rence rangeRandom Glucose Reference Range is dependent on time and content of last meal. Glucose of more than 200 mg/dL in a nonstressed, ambulatory subject supports the diagnosis of Diabetes Mellitus. Hematocrit Auto (Bld) [Volum e fraction]Ordered By: Elier Jackson on 02-05-2023 Hematocrit (Bld) [Volume fraction] 37.3 % 34.0-46.4 [facility] Hemoglobin [Mass/volume] in BloodOrdered By: Elier Jackson 02-05-2023 Hemoglobin (Bld) [Mass/Vol] 11.8 g/dL 11.8-15.4 [facility] Leukocytes [#/volume] correc flo for nucleated erythrocytes in Blood by Automated counOrdered By: Elier Jackson on 02-05-2023 WBC corrected for nucl RBC Auto (Bld) [#/Vol] 8.1 10*3/uL 3.8-11.6 [facility] Lipase [Enzymatic activity/v olume] in Serum or PlasmaOrdered By: Elier Jackson on 02-05-2023 Lipase [Catalytic activity/Vol] 40.0 U/L 11.0-82.0 [facility] Lymphocytes Auto (Bld) [#/Vo l]Ordered By: Elier Jackson on 02-05-2023 Lymphocytes (Bld) [#/Vol] 3.6 10*3/uL 1.00-4.8 [facility] Lymphocytes/100 WBC Auto (Bl d)Ordered By: Elier Jackson on 02-05-2023 Lymphocytes/100 WBC (Bld) 44.3 % . [facility] MCH Auto (RBC) [Entitic mass ]Ordered By: Elier Jackson on 02-05-2023 MCH (RBC) [Entitic mass] 24.8 pg 24.7-34.3 [facility] MCHC Auto (RBC) [Mass/Vol]Or dered By: lEier Jackson on 02-05-2023 MCHC (RBC) [Mass/Vol] 31.8 g/dL 32.0-35.[address] [facility] MCV Auto (RBC) [Entitic vol] Ordered By: Elier Jackson on 02-05-2023 MCV (RBC) [Entitic vol] 78.1 fL 80-100 [facility] Monocyte distribution width [Entitic volume] in Blood by AutomatedOrdered By: Elier Jackson on 02-05-2023 Monocyte distribution width Auto (Bld) [Entitic vol] 17.33 % 0.00-20.00 [facility] Monocytes Auto (Bld) [#/Vol] Ordered By: Elier Jackson on 02-05-2023 Monocytes (Bld) [#/Vol] 0.7 10*3/uL 0.0-0.8 [facility] Monocytes/100 WBC Auto (Bld) Ordered By: Elier Jackson on 02-05-2023 Monocytes/100 WBC (Bld) 8.4 % . [facility] Neutrophils Auto (Bld) [#/Vo l]Ordered By: Elier Jackson on 02-05-2023 Neutrophils (Bld) [#/Vol] 3.6 10*3/uL 1.8-7.7 [facility] Neutrophils/100 WBC Auto (Bl d)Ordered By: Elier Jackson on 02-05-2023 Neutrophils/100 WBC (Bld) 44.4 % . [facility] No Panel InformationOrdered By: Elier Jackson on 02-05-2023 Estimated GFR (CKD-EPI) > 60.0 mL/Min [facility] Creatinine Clearance (Chem 115.62 [facility] Nucleated erythrocytes [Pres ence] in Blood by Automated countOrdered By: Elier Jackson on 02-05-2023 Nucleated RBC Auto Ql (Bld) 0.1 /100{WBC} 0-0.5 [facility] Platelet mean volume Auto (B ld) [Entitic vol]Ordered By: Elier Jackson on 02-05-2023 Platelet mean volume (Bld) [Entitic vol] 8.0 fL 6.3-10.7 [facility] Platelets Auto (Bld) [#/Vol] Ordered By: Elier Jackson on 02-05-2023 Platelets (Bld) [#/Vol] 398 10*3/uL 150-450 [facility] Potassium [Moles/volume] in Serum or PlasmaOrdered By: Elier Jackson on 02-05-2023 Potassium [Moles/Vol] 3.4 mmol/L 3.5-5.1 [facility] Protein [Mass/volume] in Ser um or PlasmaOrdered By: Elier Jackson on 02-05-2023 Protein [Mass/Vol] 7.2 g/dL 6.4-8.[address] [facility] RBC Auto (Bld) [#/Vol]Ordere d By: Elier Jackson on 02-05-2023 RBC (Bld) [#/Vol] 4.78 10*6/uL 3.60-5.00 [facility] Serum or plasma albumin/glob ulin mass ratioOrdered By: Elier Jackson on 02-05-2023 Albumin/Globulin [Mass ratio] 1.4 {ratio} [facility] Serum or plasma anion gap de terminationOrdered By: Elier Jackson on 02-05-2023 Anion gap [Moles/Vol] 11.9 mmol/L 6.0-15.0 [facility] Serum or plasma non-glucuron idated bilirubin measurement (mass/volume)Ordered By: Elier Jackson on 02-05-2023 Bilirubin.indirect [Mass/Vol] 0.2 mg/dL [facility] Sodium [Moles/volume] in Ser um or PlasmaOrdered By: Elier Jackson on 02-05-2023 Sodium [Moles/Vol] 137 mmol/L 136-[address] [facility] Urea nitrogen [Mass/volume] in Serum or PlasmaOrdered By: Elier Jackson on 02-05-2023 Urea nitrogen [Mass/Vol] 6 mg/dL 7-25 [facility] WBC Auto (Bld) [#/Vol]Ordere d By: Elier Jackson on 02-05-2023 WBC (Bld) [#/Vol] 8.1 10*3/uL 3.8-11.[address] [facility] GENITAL CULTUREon 08-01-2022 Genital Culture, Routine Final report Abnormal [facility] Comment on above: Result Comment: Spec imen stability note: A swab transport (ie., ESwab, Amies agar gel) received by the lab more than 24 hours after collection may result in reduced recovery of Neisseria gonorrhoeae (GC). (This is informational only and may not apply to this specimen.) Performed By: #### C XGENIT #### [facility] [address] [place] [address] Dr. Rod Ramirez Result 1 Comment Abnormal [facility] Comment on above: Result Comment: Beta [...] (CLSI) Performed By: #### C XGENIT #### [facility] [address] [place] [address] Dr. Rod Ramirez Result 2 Comment Normal [facility] Comment on above: Result Comment: Rout ine genital deborah. Light growth Performed By: #### C XGENIT #### [facility] [address] [place] [address] Dr. Rod Ramirez CBC AUTO DIFFon 07-28-2022 BASO # 0.0 103/ul Normal 0.0-0.1 [facility] Comment on above: Performed By: #### C BC #### [facility] [address] [place] [address] Dr. Rod Ramirez Basophils/100 WBC (Bld) 0.4 % Normal 0.2-2.0 [facility] Comment on above: Performed By: #### C BC #### [facility] [address] [place] [address] Dr. Rod Ramirez EO # 0.1 103/ul Normal 0.0-0.7 [facility] Comment on above: Performed By: #### C BC #### [facility] [address] [place] [address] Dr. Rod Ramirez Eosinophils/100 WBC (Bld) 1.5 % Normal 0.9-7.0 [facility] Comment on above: Performed By: #### C BC #### [facility] [address] [place] [address] Dr. Rod Ramirez Erythrocyte distribution width (RBC) [Ratio] 12.9 % Normal 11.0-15.0 [facility] Comment on above: Performed By: #### C BC #### [facility] [address] [place] [address] Dr. Rod Ramirez Hematocrit (Bld) [Volume fraction] 40.9 % Normal 36.0-48.0 [facility] Comment on above: Performed By: #### C BC #### [facility] [address] [place] [address] Dr. Rod Ramirez Hemoglobin (Bld) [Mass/Vol] 13.7 g/dL Normal 12.0-16.0 [facility] Comment on above: Performed By: #### C BC #### [facility] [address] [place] [address] Dr. Rod Ramirez IG # 0.02 10e3/ul Normal 0.00-0.03 [facility] Comment on above: Performed By: #### C BC #### [facility] [address] [place] [address] Dr. Rod Ramirez IG % 0.3 % Normal 0.0-0.5 [facility] Comment on above: Performed By: #### C BC #### [facility] [address] [place] [address] Dr. Rod Ramirez LYMPH # 1.6 103/ul Normal 1.2-3.8 [facility] Comment on above: Performed By: #### C BC #### [facility] [address] [place] [address] Dr. Rod Ramirez Lymphocytes/100 WBC (Bld) 23.6 % Normal 20.5-60.0 [facility] Comment on above: Performed By: #### C BC #### [facility] [address] [place] [address] Dr. Rod Ramirez MANUAL DIFF REQ NO Normal [facility] Comment on above: Performed By: #### C BC #### [facility] [address] [place] [address] Dr. Rod Ramirez MCH (RBC) [Entitic mass] 27.7 pg Normal 26.7-34.0 [facility] Comment on above: Performed By: #### C BC #### [facility] [address] [place] [address] Dr. Rod Ramirez MCHC (RBC) [Mass/Vol] 33.5 g/dL Normal 29.9-35.2 [facility] Comment on above: Performed By: #### C BC #### [facility] [address] [place] [address] Dr. Rod Ramirez MCV (RBC) [Entitic vol] 82.6 fL Normal 81.0-99.0 [facility] Comment on above: Performed By: #### C BC #### [facility] [address] [place] [address] Dr. Rod Ramirez MONO # 0.4 103/ul Normal 0.3-0.8 [facility] Comment on above: Performed By: #### C BC #### [facility] [address] [place] [address] Dr. Rod Ramirez Monocytes/100 WBC (Bld) 6.4 % Normal 1.7-12.0 [facility] Comment on above: Performed By: #### C BC #### [facility] [address] [place] [address] Dr. Rdo Ramirez NEUT # 4.6 103/ul Normal 1.4-6.5 [facility] Comment on above: Performed By: #### C BC #### [facility] [address] [place] [address] Dr. Rod Ramirez Neutrophils/100 WBC (Bld) 67.8 % Normal 43.0-75.0 [facility] Comment on above: Performed By: #### C BC #### [facility] [address] [place] [address] Dr. Rod Ramirez Platelet mean volume (Bld) [Entitic vol] 9.4 fL Critically low 9.5-13.5 [facility] Comment on above: Performed By: #### C BC #### [facility] [address] [place] [address] Dr. Rod Ramirez PLT 439 103/ul Normal 150-450 [facility] Comment on above: Performed By: #### C BC #### [facility] [address] [place] [address] Dr. Rod Ramirez RBC 4.95 106/ul Normal 4.20-5.40 [facility] Comment on above: Performed By: #### C BC #### [facility] [address] [place] [address] Dr. Rod Ramirez WBC 6.7 103/ul Normal 4.0-11.0 [facility] Comment on above: Performed By: #### C BC #### [facility] [address] [place] [address] Dr. Rod Ramirez PREG HCG QUALon 07-28-2022 , QUAL Negative Normal NEGATIVE [facility] Comment on above: Performed By: #### P REG #### [facility] [address] [place] [address] [address] Rod Ramirez PROF CHEM 8 (BAS METB)on Anion gap [Moles/Vol] 15.5 mmol/L Normal [facility] Comment on above: Performed By: #### B MP #### [facility] [address] [place] [address] [address] Rod Ramirez Calcium [Mass/Vol] 9.0 mg/dL Normal 8.5-10.1 [facility] Comment on above: Performed By: #### B MP #### [facility] [address] [place] [address] Dr. Rod Ramirez Chloride [Moles/Vol] 103 mmol/L Normal 98-107 [facility] Comment on above: Performed By: #### B MP #### [facility] [address] [place] [address] [address] Rod Ramirez CO2 [Moles/Vol] 23.9 mmol/L Normal 21.0-32.0 [facility] Comment on above: Performed By: #### B MP #### [facility] [address] [place] [address] Dr. Rod Ramirez Creatinine [Mass/Vol] 0.79 mg/dL Normal 0.55-1.02 [facility] Comment on above: Performed By: #### B MP #### [facility] [address] [place] [address] [address] Rod Ramirez EGFR-AF SOUTH AFRICAN >60 Normal >=60 [facility] Comment on above: Performed By: #### B MP #### [facility] [address] [place] [address] Dr. Rod Ramirez EGFR-NON AF SOUTH AFRICAN >60 Normal >=60 [facility] Comment on above: Performed By: #### B MP #### [facility] [address] [place] [address] [address] Rod Ramirez Glucose [Mass/Vol] 108 mg/dL Critically high 74-106 [facility] Comment on above: Performed By: #### B MP #### [facility] [address] [place] [address] [address] Rod Ramirez Potassium [Moles/Vol] 3.4 mmol/L Critically low 3.5-5.1 [facility] Comment on above: Performed By: #### B MP #### [facility] [address] [place] [address] [address] Rod Ramirez Sodium [Moles/Vol] 139 mmol/L Normal 136-145 [facility] Comment on above: Performed By: #### B MP #### [facility] [address] [place] [address] [address] Rod Ramirez Urea nitrogen [Mass/Vol] 7.0 mg/dL Normal 7.0-18.0 [facility] Comment on above: Performed By: #### B MP #### [facility] [address] [place] [address] [address] Rod Ramirez Urea nitrogen/Creatinine [Mass ratio] 8.9 mg/mg Normal [facility] Comment on above: Performed By: #### B MP #### [facility] [address] [place] [address] [address] Rod Ramirez US PELVIS TRANSVAGon 023 [...] AUBREY BURKS Date: 2022-07-28 07:46 Normal [facility] WET PREPon 07-28-2022 CLUE CELLS NONE SEEN Normal NONE SEEN [facility] Comment on above: Performed By: #### W P #### [facility] [address] [place] [address] [address] Rod Ramirez FUNGAL ELEMENTS NONE SEEN Normal NONE SEEN [facility] Comment on above: Performed By: #### W P #### [facility] [address] [place] [address] [address] Rod Ramirez RBC -WET PREP RARE Abnormal NONE SEEN The [facility] Comment on above: Performed By: #### W P #### [facility] [address] [address] [address] Rod Ramirez TRICHOMONAS NONE SEEN Normal NONE SEEN [facility] Comment on above: Performed By: #### W P #### [facility] [address] [address] [address] Rod Ramirez WBC- WET PREP RARE Abnormal NONE SEEN [facility] Comment on above: Performed By: #### W P #### [facility] [address] [address] [address] Rod Ramirez WET PREP BACTERIA NONE SEEN Normal NONE SEEN [facility] Comment on above: Performed By: #### W P #### [facility] [address] [address] [address] Rod Morales 04-30-2022 FR[place] Telephone (HEMASA) LIVIA NOYOLA ([id number]) 1985 F Date Time Provider Department 04/30/22 [...] [D50.0] Order(s):COMP METABOLIC PANEL [SQCMP] Order #: [id number] FUTURE Prescriptions as of 05/03/2022 - ALPRAZolam [...] Status:Closed by GIL NI on 05/03/22 Normal [facility] Anisocytosis LM Ql (Bld)Orde red By: Yevgeniy Cabrera on 04-28-2022 Anisocytosis Ql (Bld) Marked [facility] Automated erythrocytes count in urine sediment (number/area)Ordered By: Yevgeniy Cabrera on 04-28-2022 RBC Auto (Urine sed) [#/Area] None seen [HPF] 0-4 [facility] Automated leukocytes count i n urine sediment (number/area)Ordered By: Yevgeniy Cabrera on 04-28-2022 WBC Auto (Urine sed) [#/Area] 3-4 [HPF] 0-4 [facility] Basophils Auto (Bld) [#/Vol] Ordered By: Yevgeniy Cabrera on 04-28-2022 Basophils (Bld) [#/Vol] 0.1 10*3/uL 0.0-0.2 [facility] Basophils/100 WBC Auto (Bld) Ordered By: Yevgeniy Cabrera on 04-28-2022 Basophils/100 WBC (Bld) 1.0 % . [facility] Bilirubin Test strip Ql (U)O rdered By: Yevgeniy Cabrera on 04-28-2022 Bilirubin Ql (U) Negative Negative [facility] Body fluid albumin measureme nt (mass/volume)Ordered By: Yevgeniy Cabrera on 04-28-2022 Albumin (Body fld) [Mass/Vol] 3.8 g/dL 3.2-5.5 [facility] Color Auto (U)Ordered By: Marcus Cabrera on 04-28-2022 Color (U) Yellow Yellow [facility] Creatinine and Glomerular fi ltration rate.predicted panel (S/P/Bld)Ordered By: Yevgeniy Cabrera on 04-28-2022 Creatinine [Mass/Vol] 0.62 mg/dL 0.44-1.03 [facility] Eosinophils Auto (Bld) [#/Vo l]Ordered By: Yevgeniy Cabrera on 04-28-2022 Eosinophils (Bld) [#/Vol] 0.1 10*3/uL 0.0-0.45 [facility] Eosinophils/100 WBC Auto (Bl d)Ordered By: Yevgeniy Cabrera on 04-28-2022 Eosinophils/100 WBC (Bld) 1.0 % . [facility] Erythrocyte distribution wid th Auto (RBC) [Ratio]Ordered By: Yevgeniy Cabrera on 04-28-2022 Erythrocyte distribution width (RBC) [Ratio] 27.1 % 11.9-15.3 [facility] Estimated glomerular filtrat ion rate (GFR) non- AmericanOrdered By: Yevgeniy Cabrera on 04-28-2022 GFR/1.73 sq M.predicted among non-blacks MDRD (S/P/Bld) [Vol rate/Area] > 60 mL/Min [facility] Globulin Calc (S) [Mass/Vol] Ordered By: Yevgeniy Cabrera on 04-28-2022 Globulin (S) [Mass/Vol] 3.1 g/dL F [facility] HCG ( test) IA.rapi d Ql (U)Ordered By: Yevgeniy Cabrera on 04-28-2022 HCG ( test) Ql (U) Negative [facility] Hematocrit Auto (Bld) [Volum e fraction]Ordered By: Yevgeniy Cabrera on 04-28-2022 Hematocrit (Bld) [Volume fraction] 39.4 % 34.0-46.4 [facility] Hemoglobin [Mass/volume] in BloodOrdered By: Yevgeniy Cabrera on 04-28-2022 Hemoglobin (Bld) [Mass/Vol] 12.3 g/dL 11.8-15.4 [facility] Hypochromia LM Ql (Bld)Order ed By: Yevgeniy Cabrera on 04-28-2022 Hypochromia Ql (Bld) Slight [facility] Ketones Auto test strip (U) [Mass/Vol]Ordered By: Yevgeniy Cabrera on 04-28-2022 Ketones (U) [Mass/Vol] Negative Negative [facility] Laboratory - Hematology and Cell countsOrdered By: Yevgeniy Cabrera on 04-28-2022 Nucleated RBC/100 WBC (Bld) [Ratio] 0.0 % 0-0.5 [facility] Laboratory - UrinalysisOrder ed By: Yevgeniy Cabrera on 04-28-2022 Hyaline casts LM Ql (Urine sed) None seen [LPF] 0-8 [facility] Leukocytes [#/volume] in Blo od by Automated countOrdered By: Yevgeniy Cabrera on 04-28-2022 WBC (Bld) [#/Vol] 7.9 10*3/uL 4.5-11.[address] [facility] Lymphocytes Auto (Bld) [#/Vo l]Ordered By: Yevgeniy Cabrera on 04-28-2022 Lymphocytes (Bld) [#/Vol] 2.3 10*3/uL 1.00-4.8 [facility] Lymphocytes/100 WBC Auto (Bl d)Ordered By: Yevgeniy Cabrera on 04-28-2022 Lymphocytes/100 WBC (Bld) 28.9 % . [facility] MCH Auto (RBC) [Entitic mass ]Ordered By: Yevgeniy Cabrera on 04-28-2022 MCH (RBC) [Entitic mass] 23.3 pg 24.7-34.3 [facility] MCHC Auto (RBC) [Mass/Vol]Or dered By: Yevgeniy Cabrera on 04-28-2022 MCHC (RBC) [Mass/Vol] 31.3 g/dL 32.0-35.0 [facility] MCV Auto (RBC) [Entitic vol] Ordered By: Yevgeniy Cabrera on 04-28-2022 MCV (RBC) [Entitic vol] 74.5 fL 80-100 F [facility] Monocytes Auto (Bld) [#/Vol] Ordered By: Yevgeniy Cabrera on 04-28-2022 Monocytes (Bld) [#/Vol] 0.4 10*3/uL 0.0-0.8 [facility] Monocytes/100 WBC Auto (Bld) Ordered By: Yevgeniy Cabrera on 04-28-2022 Monocytes/100 WBC (Bld) 4.5 % . [facility] Neutrophils Auto (Bld) [#/Vo l]Ordered By: Yevgeniy Cabrera on 04-28-2022 Neutrophils (Bld) [#/Vol] 5.1 10*3/uL 1.8-7.7 [facility] Neutrophils/100 WBC Auto (Bl d)Ordered By: Yevgeniy Cabrera on 04-28-2022 Neutrophils/100 WBC (Bld) 64.6 % . [facility] Nitrite Test strip Ql (U)Ord ered By: Yevgeniy Cabrera on 04-28-2022 Nitrite Ql (U) Negative Negative [facility] No Panel InformationOrdered By: Yevgeniy Cabrera on 04-28-2022 Estimated GFR () > 60 mL/Min [facility] Comment on above: GFR estimated refere nce range: According to KDOQI guidelines, <60 ml/min/1.73m2 is sufficient to diagnose a patient with chronic kidney disease. Pharmacy Creatinine Clearance (Chem 132.36 [facility] Slides for Pathologist Review Ordered path review [facility] Ovalocyte detectionOrdered B y: Yevgeniy Cabrera on 04-28-2022 Ovalocytes LM Ql (Bld) Moderate [facility] Platelet adequacy [Presence] in Blood by Light microscopyOrdered By: Yevgeniy Cabrera on 04-28-2022 Platelets LM Ql (Bld) Normal Normal [facility] Platelet mean volume Auto (B ld) [Entitic vol]Ordered By: Yevgeniy Cabrera on 04-28-2022 Platelet mean volume (Bld) [Entitic vol] 7.4 fL 6.3-10.7 [facility] Platelet morphology finding [Identifier] in BloodOrdered By: Yevgeniy Cabrera on 04-28-2022 Platelet morphology finding Nom (Bld) Normal Normal [facility] Platelets Auto (Bld) [#/Vol] Ordered By: Yevgeniy Cabrera on 04-28-2022 Platelets (Bld) [#/Vol] 329 10*3/uL 150-450 [facility] Poikilocytosis [Presence] in Blood by Light microscopyOrdered By: Yevgeniy Cabrera on 04-28-2022 Poikilocytosis LM Ql (Bld) Moderate [facility] Polychromasia [Presence] in Blood by Light microscopyOrdered By: Yevgeniy Cabrera on 04-28-2022 Polychromasia LM Ql (Bld) Slight [facility] Protein Auto test strip (U) [Mass/Vol]Ordered By: Yevgeniy Cabrera on 04-28-2022 Protein (U) [Mass/Vol] Negative Negative [facility] Protein [Mass/volume] in Ser um or PlasmaOrdered By: Yevgeniy Carbera on 04-28-2022 Protein [Mass/Vol] 6.9 g/dL 6.1-7.[address] [facility] RBC Auto (Bld) [#/Vol]Ordere d By: Yevgeniy Cabrera on 04-28-2022 RBC (Bld) [#/Vol] 5.29 10*6/uL 3.60-5.00 [facility] RBC morphologyOrdered By: Marcus Cabrera on 04-28-2022 RBC morphology finding Nom (Bld) N/A [facility] Serum or plasma alanine syed otransferase measurement without P-5'-P (enzymatic activiOrdered By: Yevgeniy Cabrera on 04-28-2022 ALT No additional P-5'-P [Catalytic activity/Vol] 43 U/L 10-60 [facility] Serum or plasma albumin/glob ulin mass ratioOrdered By: Yevgeniy Cabrera on 04-28-2022 Albumin/Globulin [Mass ratio] 1.2 {ratio} [facility] Serum or plasma alkaline zeeshan sphatase measurement (enzymatic activity/volume)Ordered By: Yevgeniy Cabrera on 04-28-2022 ALP [Catalytic activity/Vol] 65 U/L 32-92 [facility] Serum or plasma anion gap de terminationOrdered By: Yevgeniy Cabrera on 04-28-2022 Anion gap [Moles/Vol] 14.6 mmol/L 6.0-15.0 [facility] Serum or plasma aspartate am inotransferase measurement (enzymatic activity/volume)Ordered By: Yevgeniy Cabrera on 04-28-2022 AST [Catalytic activity/Vol] 26 U/L 10-42 [facility] Serum or plasma calcium donaldo urement (mass/volume)Ordered By: Yevgeniy Cabrera on 04-28-2022 Calcium [Mass/Vol] 9.3 mg/dL 8.2-10.[address] [facility] Serum or plasma chloride claudia surement (moles/volume)Ordered By: Yevgeniy Cabrera on 04-28-2022 Chloride [Moles/Vol] 105 mmol/L 95-114 [facility] Serum or plasma glucose donaldo urement (mass/volume)Ordered By: Yevgeniy Cabrera on 04-28-2022 Glucose [Mass/Vol] 112 mg/dL 70-[address] [facility] Comment on above: ADA recommended refe rence rangeRandom Glucose Reference Range is dependent on time and content of last meal. Glucose of more than 200 mg/dL in a nonstressed, ambulatory subject supports the diagnosis of Diabetes Mellitus. Serum or plasma potassium me asurement (moles/volume)Ordered By: Yevgeniy Cabrera on 04-28-2022 Potassium [Moles/Vol] 3.7 mmol/L 3.5-5.1 [facility] Serum or plasma sodium measu rement (moles/volume)Ordered By: Yevgeniy Cabrera on 04-28-2022 Sodium [Moles/Vol] 137 mmol/L 136-[address] [facility] Serum or plasma total biliru bin measurement (mass/volume)Ordered By: Yevgeniy Cabrera on 04-28-2022 Bilirubin [Mass/Vol] 0.5 mg/dL 0.3-1.2 [facility] Serum or plasma total carbon dioxide measurement (moles/volume)Ordered By: Yevgeniy Cabrera on 04-28-2022 CO2 [Moles/Vol] 21.1 mmol/L 22.0-30.0 [facility] Serum or plasma urea nitroge n measurement (mass/volume)Ordered By: Yevgeniy Cabrera on 04-28-2022 Urea nitrogen [Mass/Vol] 5 mg/dL 9-23 [facility] Specific gravity Auto test s trip (U) [Rel density]Ordered By: Yevgeniy Cabrera on 04-28-2022 Specific gravity (U) [Rel density] 1.005 1.001-1.030 [facility] Squamous epithelial cells de tection in urine sediment by light microscopyOrdered By: Yevgeniy Cabrera on 04-28-2022 Epithelial cells.squamous LM Ql (Urine sed) 0-1 [HPF] 0-2 [facility] Teardrop cell detectionOrder ed By: Yevgeniy Cabrera on 04-28-2022 Dacrocytes LM Ql (Bld) Slight [facility] Urine bacteria detection by automated methodOrdered By: Yevgeniy Cabrera on 04-28-2022 Bacteria Auto Ql (U) None seen None Seen [facility] Urine clarity by refractomet ry automatedOrdered By: Yevgeniy Cabrera on 04-28-2022 Clarity Refractometry automated (U) Cloudy Clear [facility] Urine glucose measurement by automated test strip (mass/volume)Ordered By: Yevgeniy Cabrera on 04-28-2022 Glucose Auto test strip (U) [Mass/Vol] Normal mg/dL Normal [facility] Urine hemoglobin detection b y automated test stripOrdered By: Yevgeniy Cabrera on 04-28-2022 Hemoglobin Auto test strip Ql (U) Negative Negative [facility] Urine leukocyte esterase det ection by automated test stripOrdered By: Yevgeniy Cabrera on 04-28-2022 Leukocyte esterase Auto test strip Ql (U) 1+ Negative [facility] Urobilinogen Auto test strip (U) [Mass/Vol]Ordered By: Yevgeniy Cabrera on 04-28-2022 Urobilinogen (U) [Mass/Vol] Normal mg/dL Normal [facility] pH Auto test strip (U)Ordere d By: Yevgeniy Cabrera on 04-28-2022 pH (U) 6.5 [pH] 5.0-9.0 [facility] ALLIED HEALTHon 04-09-2022 ALLIED HEALTH HNO ID: [id number] Author: Stephenie Suh, 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 Service: ? [...] 2022 TIME: 2:21 PM PAGER/CONTACT #: Angela [facility] Andrew 03-19-2022 FRIDA Telephone (NCCAP) LIVIA NOYOLA ([id number]) 1985 F Date Time Provider Department 03/19/22 [...] Date Reviewed: 03/10/2022 Reviewed by: Gil Ni APRN.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 - Fully Assessed Reason for Visit: No [...] Encounter Status:Closed by CORBIN MANE [facility] LIV[facility] NOYOLA ([id number]) 1985 F Date Time Provider Department 03/19/22 [employer] JOHNY [employer]DESTINY During your visit today, we recorded the following information about you: Sparkle Short [facility] 03/19/2022 4:48 PM Signed 1st report of treatment-Non oncology regimen (Venofer) No FA available for this treatment at this time. Allergies As of Date: 03/19/2022 Noted Allergy Reaction MORPHINE 06/20/2018 14 - Other: See Comments Comments: Spasms Date Reviewed: 03/10/2022 Reviewed by: Gil Ni APRN.[facility] - Fully Assessed Reason for Visit: Benefits Investigation [5718] Prescriptions as of 03/19/2022 - ALPRAZolam (XANAX) [...] iron [K90.9] 10/27/2020 Encounter Status:Closed by [facility], SPARKLE Chicas on 03/19/22 [facility] C[facility] (HEMASA) LIVIA NOYOLA ([id number]) 1985 F Date Time Provider Department 03/15/22 [...] Date Reviewed: 03/10/2022 Reviewed by: Gil Ni APRN.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 - Fully Assessed Reason for Visit: Social [...] Status:Closed by SHARON SAAVEDRA on 03/15/22 Normal [facility] CBC W Auto Differential pane l (Bld)on 03-10-2022 Basophils (Bld) [#/Vol] 0.05 10*3/uL Normal <0.11 [facility] Comment on above: Order Comment: Speci men Type: BLOOD SPECIMEN Ordering Facility: [facility] Address: [address] [place] [address] Performed By: #### 5 7021-8 #### [facility] CLIA [id number] [address] [place] [address] Basophils/100 WBC (Bld) 0.8 % Normal C [facility] Comment on above: Order Comment: Speci men Type: BLOOD SPECIMEN Ordering Facility: [facility] Address: [address] [place] [address] Performed By: #### 5 7021-8 #### [facility] CLIA [id number] [address] [place] [address] 46453 Differential cell count method Nom (Bld) Auto Normal [facility] Comment on above: Order Comment: Speci men Type: BLOOD SPECIMEN Ordering Facility: [facility] Address: [address] [place] [address] Performed By: #### 5 7021-8 #### [facility] CLIA [id number] [address] [place] [address] Eosinophils (Bld) [#/Vol] 0.15 10*3/uL Normal <0.46 [facility] Comment on above: Order Comment: Speci men Type: BLOOD SPECIMEN Ordering Facility: [facility] Address: [address] [address] Performed By: #### 5 7021-8 #### [facility] CLIA [id number] [address] [place] [address] Eosinophils/100 WBC (Bld) 2.3 % Normal [facility] Comment on above: Order Comment: Speci men Type: BLOOD SPECIMEN Ordering Facility: [facility] Address: [address] [place] [address] Performed By: #### 5 7021-8 #### [facility] CLIA [id number] [address] [place] [address] Erythrocyte distribution width (RBC) [Ratio] 17.4 % High 11.5-15.0 [facility] Comment on above: Order Comment: Speci men Type: BLOOD SPECIMEN Ordering Facility: [facility] Address: [address] [place] [address] Performed By: #### 5 7021-8 #### [facility] CLIA [id number] [address] [place] [address]755 Hematocrit (Bld) [Volume fraction] 29.4 % Low 36.0-46.0 [facility] Comment on above: Order Comment: Speci men Type: BLOOD SPECIMEN Ordering Facility: [facility] Address: [address] [place] [address] Performed By: #### 5 7021-8 #### [facility] CLIA [id number] [address] [place] [address]08 Hemoglobin (Bld) [Mass/Vol] 8.5 g/dL Low 11.5-15.5 [facility] Comment on above: Order Comment: Speci men Type: BLOOD SPECIMEN Ordering Facility: [facility] Address: [address] [place] [address] Performed By: #### 5 7021-8 #### [facility] CLIA [id number] [address] [place] [address] IMMATURE GRAN % 0.3 % Normal [facility] Comment on above: Order Comment: Speci men Type: BLOOD SPECIMEN Ordering Facility: [facility] Address: [address] [place] [address] Performed By: #### 5 7021-8 #### [facility] CLIA [id number] [address] [place] [address] IMMATURE GRAN ABS <0.03 Normal <0.10 [facility] Comment on above: Order Comment: Speci men Type: BLOOD SPECIMEN Ordering Facility: [facility] Address: [address] [place] [address] Performed By: #### 5 7021-8 #### [facility] CLIA [id number] [address] [place] [address]20 Lymphocytes (Bld) [#/Vol] 3.62 10*3/uL Normal 1.00-4.00 [facility] Comment on above: Order Comment: Speci men Type: BLOOD SPECIMEN Ordering Facility: [facility] Address: [address] [place] [address] Performed By: #### 5 7021-8 #### [facility] CLIA [id number] [address] [place] [address] 14917 Lymphocytes/100 WBC (Bld) 54.8 % Normal [facility] Comment on above: Order Comment: Speci men Type: BLOOD SPECIMEN Ordering Facility: [facility] Address: [address] [place], [place] [address] Performed By: #### 5 7021-8 #### [facility] CLIA [id number] [address] [place] [address] 13012 MCH (RBC) [Entitic mass] 20.3 pg Low 26.0-34.0 [facility] Comment on above: Order Comment: Speci men Type: BLOOD SPECIMEN Ordering Facility: [facility] Address: [address] [place] [address] Performed By: #### 5 7021-8 #### [facility] CLIA [id number] [address] [place] [address] MCHC (RBC) [Mass/Vol] 28.9 g/dL Low 30.5-36.0 [facility] Comment on above: Order Comment: Speci men Type: BLOOD SPECIMEN Ordering Facility: [facility] Address: [address] [place] [address] Performed By: #### 5 7021-8 #### [facility] CLIA [id number] [address] [place] [address] MCV (RBC) [Entitic vol] 70.3 fL Low 80.0-100.0 C [facility] Comment on above: Order Comment: Speci men Type: BLOOD SPECIMEN Ordering Facility: [facility] Address: [address] [place] [address] Performed By: #### 5 7021-8 #### [facility] CLIA [id number] [address] [place] [address] 31342 Monocytes (Bld) [#/Vol] 0.38 10*3/uL Normal <0.87 [facility] Comment on above: Order Comment: Speci men Type: BLOOD SPECIMEN Ordering Facility: [facility] Address: [address] [place] [address] Performed By: #### 5 7021-8 #### [facility] CLIA [id number] [address] [place] [address]358 Monocytes/100 WBC (Bld) 5.7 % Normal C [facility] Comment on above: Order Comment: Speci men Type: BLOOD SPECIMEN Ordering Facility: [facility] Address: [address] [place] [address] Performed By: #### 5 7021-8 #### [facility] CLIA [id number] [address] [place] [address] 01500 Neutrophils (Bld) [#/Vol] 2.39 10*3/uL Normal 1.45-7.50 [facility] Comment on above: Order Comment: Speci men Type: BLOOD SPECIMEN Ordering Facility: [facility] Address: [address] [address] Performed By: #### 5 7021-8 #### [facility] CLIA [id number] [address] [place] [address]20 Neutrophils/100 WBC (Bld) 36.1 % Normal [facility] Comment on above: Order Comment: Speci men Type: BLOOD SPECIMEN Ordering Facility: [facility] Address: [address] [place] [address] Performed By: #### 5 7021-8 #### [facility] CLIA [id number] [address] [place] [address]018 Nucleated RBC (Bld) [#/Vol] 10*3/uL Normal <0.01 [facility] Comment on above: Order Comment: Speci men Type: BLOOD SPECIMEN Ordering Facility: [facility] Address: [address] [place] [address] Performed By: #### 5 7021-8 #### [facility] CLIA [id number] [address] [place] [address] 27766 Nucleated RBC/100 WBC (Bld) [Ratio] 0.0 /100 WBC Normal [facility] Comment on above: Order Comment: Speci men Type: BLOOD SPECIMEN Ordering Facility: [facility] Address: [address] [place] [address] Performed By: #### 5 7021-8 #### [facility] CLIA [id number] [address] [place] [address] 80664 Platelet mean volume (Bld) [Entitic vol] 8.8 fL Low 9.0-12.7 [facility] Comment on above: Order Comment: Speci men Type: BLOOD SPECIMEN Ordering Facility: [facility] Address: [address] [place], [place] [address] Performed By: #### 5 7021-8 #### [facility] CLIA [id number] [address] [place] [address] 48422 Platelets (Bld) [#/Vol] 419 10*3/uL High 150-400 [facility] Comment on above: Order Comment: Speci men Type: BLOOD SPECIMEN Ordering Facility: [facility] Address: [address] [place] [address] Performed By: #### 5 7021-8 #### [facility] CLIA [id number] [address] [place] [address] 82723 RBC (Bld) [#/Vol] 4.18 10*6/uL Normal 3.90-5.20 [facility] Comment on above: Order Comment: Speci men Type: BLOOD SPECIMEN Ordering Facility: [facility] Address: [address] [place] [address] Performed By: #### 5 7021-8 #### [facility] CLIA [id number] [address] [place] [address] 23034 WBC (Bld) [#/Vol] 6.61 10*3/uL Normal 3.70-11.00 [facility] Comment on above: Order Comment: Speci men Type: BLOOD SPECIMEN Ordering Facility: [facility] Address: [address] [place] [address] Performed By: #### 5 7021-8 #### [facility] CLIA [id number] [address] [place] [address]102 CNOVSPon 03-10-2022 CNOVSP Visit (SP) Office (HEMASA) LIVIA NOYOLA ([id number]) 1985 F Date Time Provider Department 03/10/22 2:00 PM GIL NI During your visit today, we recorded the following information about you: Temperature Pulse Respiration Blood pressure 97.9 degrees 95/minute 16/minute 130/75 Weight Height 83.4 kg 1.651 m Gil Ni APRN.CNP 03/10/2022 2:25 PM Signed NAME: Livia Noyola NO.: [id number] DATE OF SERVICE: March 10, 2022 (Elements [...] 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 [place] [facility] [place] 04[place] show hemoglobin of 11.6 [...] to chronic (more content not included)... Normal [facility] Comprehensive metabolic 2000 panelon 03-10-2022 Albumin [Mass/Vol] 4.0 g/dL Normal 3.9-4.9 [facility] Comment on above: Order Comment: Speci men Type: BLOOD SPECIMEN Ordering Facility: [facility] Address: [address] [place] [address] Performed By: #### 2 4323-8 #### [facility] CLIA [id number] [address] [place] [address] ALP [Catalytic activity/Vol] 55 U/L Normal 34-123 [facility] Comment on above: Order Comment: Speci men Type: BLOOD SPECIMEN Ordering Facility: [facility] Address: [address] [place] [address] Performed By: #### 2 4323-8 #### [facility] CLIA [id number] [address] [place] [address] ALT [Catalytic activity/Vol] 12 U/L Normal 7-38 [facility] Comment on above: Order Comment: Speci men Type: BLOOD SPECIMEN Ordering Facility: [facility] Address: [address] [place] [address] Performed By: #### 2 4323-8 #### [facility] CLIA [id number] [address] [place] [address] Anion gap [Moles/Vol] 9 mmol/L Normal 9-18 [facility] Comment on above: Order Comment: Speci men Type: BLOOD SPECIMEN Ordering Facility: [facility] Address: [address] [place] [address] Performed By: #### 2 4323-8 #### [facility] CLIA [id number] [address] [place] [address] AST [Catalytic activity/Vol] 14 U/L Normal 13-35 [facility] Comment on above: Order Comment: Speci men Type: BLOOD SPECIMEN Ordering Facility: [facility] Address: [address] Performed By: #### 2 4323-8 #### [facility] CLIA [id number] [address] [place] [address] Bilirubin [Mass/Vol] 0.3 mg/dL Normal 0.2-1.3 [facility] Comment on above: Order Comment: Speci men Type: BLOOD SPECIMEN Ordering Facility: [facility] Address: [address] [place], [place] [address] Performed By: #### 2 4323-8 #### [facility] CLIA [id number] [address] [place] [address]87 Calcium [Mass/Vol] 8.8 mg/dL Normal 8.5-10.2 [facility] Comment on above: Order Comment: Speci men Type: BLOOD SPECIMEN Ordering Facility: [facility] Address: [address] [place], [place] [address] Performed By: #### 2 4323-8 #### [facility] CLIA [id number] [address] [place] [address]38 Chloride [Moles/Vol] 105 mmol/L Normal 97-105 [facility] Comment on above: Order Comment: Speci men Type: BLOOD SPECIMEN Ordering Facility: [facility] Address: [address] Performed By: #### 2 4323-8 #### [facility] CLIA [id number] [address] [place] [address] CO2 [Moles/Vol] 24 mmol/L Normal 22-30 [facility] Comment on above: Order Comment: Speci men Type: BLOOD SPECIMEN Ordering Facility: [facility] Address: [address] [place], [place] [address] Performed By: #### 2 4323-8 #### [facility] CLIA [id number] [address] [place] [address] Creatinine [Mass/Vol] 0.65 mg/dL Normal 0.58-0.96 [facility] Comment on above: Order Comment: Roselyn conway Type: BLOOD SPECIMEN Ordering Facility: [facility] Address: [address] [place], [place] [address] Performed By: #### 2 4323-8 #### [facility] CLIA [id number] [address] [place] [address] ESTIMATED GLOMERULAR FILTRATION RATE 118 mL/min/1.73m??? Normal >=60 [facility] Comment on above: Order Comment: Roselyn conway Type: BLOOD SPECIMEN Ordering Facility: [facility] Address: [address] [place] [address] Result Comment: Shelley mated Glomerular Filtration Rate [...] GFR. Performed By: #### 2 4323-8 #### [facility] CLIA [id number] [address] [place] [address] Glucose [Mass/Vol] 109 mg/dL High 74-99 [facility] Comment on above: Order Comment: Roselyn conway Type: BLOOD SPECIMEN Ordering Facility: [facility] Address: [address] [place] [address] Result Comment: The [place] Diabetes Association (ADA) provides guidance for cutoff [...] Medical Care in Diabetes 2016, [place] Diabetes Association. Diabetes Care. 2016.39(Suppl 1). Performed By: #### 2 4323-8 #### [facility] CLIA [id number] [address] [place] [address] Potassium [Moles/Vol] 3.4 mmol/L Low 3.7-5.1 [facility] Comment on above: Order Comment: Speci men Type: BLOOD SPECIMEN Ordering Facility: [facility] Address: [address] [place] [address] Performed By: #### 2 4323-8 #### [facility] CLIA [id number] [address] [place] [address] Protein [Mass/Vol] 6.5 g/dL Normal 6.3-8.0 [facility] Comment on above: Order Comment: Speci men Type: BLOOD SPECIMEN Ordering Facility: [facility] Address: [address] [place] [address] Performed By: #### 2 4323-8 #### [facility] CLIA [id number] [address] [place] [address] Sodium [Moles/Vol] 138 mmol/L Normal 136-144 [facility] Comment on above: Order Comment: Speci men Type: BLOOD SPECIMEN Ordering Facility: [facility] Address: [address] [place] [address] Performed By: #### 2 4323-8 #### [facility] CLIA [id number] [address] [place] [address] Urea nitrogen [Mass/Vol] 8 mg/dL Normal 7-21 [facility] Comment on above: Order Comment: Speci men Type: BLOOD SPECIMEN Ordering Facility: [facility] Address: [facility] [place] [address] Performed By: #### 2 4323-8 #### [facility] CLIA [id number] [address] [place] [address] Ferritin SerPl-mCncon 2021 Ferritin [Mass/Vol] 5.4 ng/mL Low 14.7-205.1 [facility] Comment on above: Order Comment: Speci men Type: BLOOD SPECIMEN Ordering Facility: [facility] Address: [address] [place], [place] [address] Performed By: #### 5 0190-8, 2131-9, 2283-8, 2275-4 #### [facility] CLIA [id number] [address] [place] [address] [place] Folate SerPl-mCncon 03-10-20 Folate [Mass/Vol] 8.7 ng/mL Normal >4.7 [facility] Comment on above: Order Comment: Speci men Type: BLOOD SPECIMEN Ordering Facility: [facility] Address: [address] [place] [address] Performed By: #### 5 0190-8, 9, 8, 2275-4 #### [facility] CLIA [id number] [address] [place] [address] [place] Iron and Iron binding capaci ty panelon 03-10-2022 Iron [Mass/Vol] 17 ug/dL Low 41-186 [facility] Comment on above: Order Comment: Speci men Type: BLOOD SPECIMEN Ordering Facility: [facility] Address: [address] [place], [place] [address] Performed By: #### 5 0190-8, 9, 2283-8, 2275-4 #### [facility] CLIA [id number] [address] [place] [address] [place] Iron binding capacity [Mass/Vol] 422 ug/dL High 232-386 [facility] Comment on above: Order Comment: Speci men Type: BLOOD SPECIMEN Ordering Facility: [facility] Address: [address] [place], [place] [address] Performed By: #### 5 0190-8, 9, 2283-8, 2275-4 #### [facility] CLIA [id number] [address] [place] [address] [place] Iron/TIBC [Molar ratio] 4.0 % Low 15.0-57.0 [facility] Comment on above: Order Comment: Roselyn conway Type: BLOOD SPECIMEN Ordering Facility: [facility] Address: [address] [place] [address] Performed By: #### 5 0190-8, 2131-9, 2283-8, 6-4 #### [facility] CLIA [id number] [address] [place] [address] [place] Vit B12 [facility] 03-10-2 022 Cobalamin (Vitamin B12) [Mass/Vol] 367 pg/mL Normal 232-1245 [facility] Comment on above: Order Comment: Spectigre conway Type: BLOOD SPECIMEN Ordering Facility: [facility] Address: [address] [place] [address] Performed By: #### 5 0190-8, 2131-9, 2283-8, 2275-4 #### [facility] CLIA [id number] [address] [place] [address] OF [place] Andrew 02-18-2022 CNPN Telephone (HEMBRITTANY) LIVIA NOYOLA ([id number]) 1985 F Date Time Provider Department 02/18/22 [...] [D50.0] Order(s):CBC + DIFF [SQCBCDIF] Order #: [id number] FUTURE COMP METABOLIC PANEL [SQCMP] Order #: [id number] FUTURE IRON + TIBC [SQIRON] Order #: [id number] FUTURE FERRITIN BLD [SQFERR] Order #: [id number] FUTURE VITAMIN B12 BLOOD [SQB12] Order #: [id number] FUTURE FOLATE SERUM [SQSERFOL] Order #: [id number] FUTURE Prescriptions as of 02/20/2022 - ALPRAZolam [...] Status:Closed by GRU[place] on 02/20/22 Normal [facility] Basophils Auto (Bld) [#/Vol] Ordered By: Jennifer Duran on 02-12-2022 Basophils (Bld) [#/Vol] 0.1 10*3/uL 0.0-0.2 [facility] Basophils/100 WBC Auto (Bld) Ordered By: Jennifer Duran on 02-12-2022 Basophils/100 WBC (Bld) 1.0 % . [facility] Blood anisocytosis detection Ordered By: Jennifer Duran on 02-12-2022 Anisocytosis Ql (Bld) Moderate [facility] Blood hemoglobin measurement (mass/volume)Ordered By: Jennifer Duran on 02-12-2022 Hemoglobin (Bld) [Mass/Vol] 8.5 g/dL 11.8-15.4 [facility] Blood leukocytes automated c ount (number/volume)Ordered By: Jennifer Duran on 02-12-2022 WBC (Bld) [#/Vol] 5.9 10*3/uL 4.5-11.[address] [facility] Body fluid albumin measureme nt (mass/volume)Ordered By: Jennifer Duran on 02-12-2022 Albumin (Body fld) [Mass/Vol] 3.7 g/dL 3.2-5.5 [facility] CT biopsyOrdered By: Jennifer avila on 02-12-2022 Transferrin [Mass/Vol] 356 mg/dL 180-380 [facility] Creatinine and Glomerular fi ltration rate.predicted panel (S/P/Bld)Ordered By: Jennifer Duran on 02-12-2022 Creatinine [Mass/Vol] 0.72 mg/dL 0.44-1.03 [facility] Eosinophils Auto (Bld) [#/Vo l]Ordered By: Jennifer Duran on 02-12-2022 Eosinophils (Bld) [#/Vol] 0.1 10*3/uL 0.0-0.45 [facility] Eosinophils/100 WBC Auto (Bl d)Ordered By: Jennifer Duran on 02-12-2022 Eosinophils/100 WBC (Bld) 2.2 % . [facility] Erythrocyte distribution wid th Auto (RBC) [Ratio]Ordered By: Jennifer Duran on 02-12-2022 Erythrocyte distribution width (RBC) [Ratio] 17.3 % 11.9-15.3 [facility] Estimated glomerular filtrat ion rate (GFR) non- AmericanOrdered By: Jennifer Duran on 02-12-2022 GFR/1.73 sq M.predicted among non-blacks MDRD (S/P/Bld) [Vol rate/Area] > 60 mL/Min [facility] Ferritin [Mass/volume] in Se rum or PlasmaOrdered By: Jennifer Duran on 02-12-2022 Ferritin [Mass/Vol] 5.1 ng/mL 11-306.8 [facility] Globulin Calc (S) [Mass/Vol] Ordered By: Jennifer Duran on 02-12-2022 Globulin (S) [Mass/Vol] 2.9 g/dL [facility] Hematocrit Auto (Bld) [Volum e fraction]Ordered By: Jennifer Duran on 02-12-2022 Hematocrit (Bld) [Volume fraction] 27.9 % 34.0-46.4 [facility] Hypochromia detectionOrdered By: Jennifer Duran on 02-12-2022 Hypochromia Ql (Bld) Slight [facility] Iron [Mass/volume] in Serum or PlasmaOrdered By: Jennifer Duran on 02-12-2022 Iron [Mass/Vol] 11 ug/dL 40-150 [facility] Iron binding capacity [Mass/ volume] in Serum or PlasmaOrdered By: Jennifer Duran on 02-12-2022 Iron binding capacity [Mass/Vol] 498 ug/dL 255-450 [facility] Iron saturation [Mass Fracti on] in Serum or PlasmaOrdered By: Jennifer uDran on 02-12-2022 Iron saturation [Mass fraction] 2.0 % 20-50 [facility] Laboratory - Hematology and Cell countsOrdered By: Jennifer Duran on 02-12-2022 Nucleated RBC/100 WBC (Bld) [Ratio] 0.3 % 0-0.5 [facility] Lymphocytes Auto (Bld) [#/Vo l]Ordered By: Jennifer Duran on 02-12-2022 Lymphocytes (Bld) [#/Vol] 3.0 10*3/uL 1.00-4.8 [facility] Lymphocytes/100 WBC Auto (Bl d)Ordered By: Jennifer Duran on 02-12-2022 Lymphocytes/100 WBC (Bld) 50.8 % . [facility] MCH Auto (RBC) [Entitic mass ]Ordered By: Jennifer Duran on 02-12-2022 MCH (RBC) [Entitic mass] 20.1 pg 24.7-34.3 [facility] MCHC Auto (RBC) [Mass/Vol]Or dered By: Jennifer Duran on 02-12-2022 MCHC (RBC) [Mass/Vol] 30.4 g/dL 32.0-35.[address] [facility] MCV Auto (RBC) [Entitic vol] Ordered By: Jennifer Duran on 02-12-2022 MCV (RBC) [Entitic vol] 66.3 fL 80-100 [facility] Monocytes Auto (Bld) [#/Vol] Ordered By: Jennifer Duran on 02-12-2022 Monocytes (Bld) [#/Vol] 0.3 10*3/uL 0.0-0.8 [facility] Monocytes/100 WBC Auto (Bld) Ordered By: Jennifer Duran on 02-12-2022 Monocytes/100 WBC (Bld) 5.7 % . [facility] Neutrophils Auto (Bld) [#/Vo l]Ordered By: Jennifer Duran on 02-12-2022 Neutrophils (Bld) [#/Vol] 2.4 10*3/uL 1.8-7.7 [facility] Neutrophils/100 WBC Auto (Bl d)Ordered By: Jennifer Duran on 02-12-2022 Neutrophils/100 WBC (Bld) 40.3 % . [facility] No Panel InformationOrdered By: Jennifer Duran on 02-12-2022 Estimated GFR () > 60 mL/Min [facility] Comment on above: GFR estimated refere nce range: According to KDOQI guidelines, <60 ml/min/1.73m2 is sufficient to diagnose a patient with chronic kidney disease. Microcytosis Moderate [facility] Creatinine Clearance (Chem N/A [facility] Platelet Estimate Normal Normal [facility] Platelet Morphology Comment Normal Normal [facility] Platelet mean volume Auto (B ld) [Entitic vol]Ordered By: Jennifer Duran on 02-12-2022 Platelet mean volume (Bld) [Entitic vol] 8.1 fL 6.3-10.7 [facility] Platelets Auto (Bld) [#/Vol] Ordered By: Jennifer Duran on 02-12-2022 Platelets (Bld) [#/Vol] 459 10*3/uL 150-450 [facility] Protein [Mass/volume] in Ser um or PlasmaOrdered By: Jennifer Duran on 02-12-2022 Protein [Mass/Vol] 6.6 g/dL 6.1-7.[address] [facility] RBC Auto (Bld) [#/Vol]Ordere d By: Jennifer Duran on 02-12-2022 RBC (Bld) [#/Vol] 4.20 10*6/uL 3.60-5.00 [facility] RBC morphologyOrdered By: Pool Duran on 02-12-2022 RBC morphology finding Nom (Bld) N/A [facility] Serum or plasma alanine syed otransferase measurement without P-5'-P (enzymatic activiOrdered By: Jennifer Duran on 02-12-2022 ALT No additional P-5'-P [Catalytic activity/Vol] 69 U/L 10-60 [facility] Serum or plasma albumin/glob ulin mass ratioOrdered By: Jennifer Duran on 02-12-2022 Albumin/Globulin [Mass ratio] 1.3 {ratio} [facility] Serum or plasma alkaline zeeshan sphatase measurement (enzymatic activity/volume)Ordered By: Jennifer Duran on 02-12-2022 ALP [Catalytic activity/Vol] 73 U/L 32-92 [facility] Serum or plasma anion gap de terminationOrdered By: Jennifer Duran on 02-12-2022 Anion gap [Moles/Vol] 13.2 mmol/L 6.0-15.0 [facility] Serum or plasma aspartate am inotransferase measurement (enzymatic activity/volume)Ordered By: Jennifer Duran on 02-12-2022 AST [Catalytic activity/Vol] 42 U/L 10-42 [facility] Serum or plasma calcium donaldo urement (mass/volume)Ordered By: Jennifer Duran on 02-12-2022 Calcium [Mass/Vol] 9.3 mg/dL 8.2-10.[address] [facility] Serum or plasma chloride claudia surement (moles/volume)Ordered By: Jennifer Duran on 02-12-2022 Chloride [Moles/Vol] 101 mmol/L 95-114 [facility] Serum or plasma glucose donaldo urement (mass/volume)Ordered By: Jennifer Duran on 02-12-2022 Glucose [Mass/Vol] 98 mg/dL 70-[address] [facility] Comment on above: ADA recommended refe [...] on 02-12-2022 Potassium [Moles/Vol] 3.6 mmol/L 3.5-5.1 [facility] Serum or plasma sodium measu rement (moles/volume)Ordered By: Jennifer Duran on 02-12-2022 Sodium [Moles/Vol] 136 mmol/L 136-[address] [facility] Serum or plasma total biliru bin measurement (mass/volume)Ordered By: Jennifer Duran on 02-12-2022 Bilirubin [Mass/Vol] 0.4 mg/dL 0.3-1.2 [facility] Serum or plasma total carbon dioxide measurement (moles/volume)Ordered By: Jennifer Duran on 02-12-2022 CO2 [Moles/Vol] 25.4 mmol/L 22.0-30.0 [facility] Serum or plasma urea nitroge n measurement (mass/volume)Ordered By: Jennifer Duran on 02-12-2022 Urea nitrogen [Mass/Vol] 4 mg/dL 9-23 [facility] Basophils Auto (Bld) [#/Vol] Ordered By: Kendra Persaud on 09-14-2021 Basophils (Bld) [#/Vol] 0.1 10*3/uL 0.0-0.2 [facility] Basophils/100 WBC Auto (Bld) Ordered By: Kendra Persaud on 09-14-2021 Basophils/100 WBC (Bld) 1.3 % [facility] Bilirubin Test strip Ql (U)O rdered By: Kendra Persaud on 09-14-2021 Bilirubin Ql (U) Negative Negative [facility] Blood hemoglobin measurement (mass/volume)Ordered By: Kendra Persaud on 09-14-2021 Hemoglobin (Bld) [Mass/Vol] 9.7 g/dL 11.8-15.4 [facility] Blood leukocytes automated c ount (number/volume)Ordered By: Kendra Persaud on 09-14-2021 WBC (Bld) [#/Vol] 8.9 10*3/uL 4.5-11.[address] [facility] Body fluid albumin measureme nt (mass/volume)Ordered By: Kendra Persaud on 09-14-2021 Albumin (Body fld) [Mass/Vol] 3.7 g/dL 3.2-5.5 [facility] Color Auto (U)Ordered By: Jazmin Persaud on 09-14-2021 Color (U) Yellow Yellow [facility] Creatinine and Glomerular fi ltration rate.predicted panel (S/P/Bld)Ordered By: Kendra Persaud on 09-14-2021 Creatinine [Mass/Vol] 0.71 mg/dL 0.44-1.03 [facility] Eosinophils Auto (Bld) [#/Vo l]Ordered By: Kendra Persaud on 09-14-2021 Eosinophils (Bld) [#/Vol] 0.0 10*3/uL 0.0-0.45 [facility] Eosinophils/100 WBC Auto (Bl d)Ordered By: Kendra Persaud on 09-14-2021 Eosinophils/100 WBC (Bld) 0.4 % [facility] Erythrocyte distribution wid th Auto (RBC) [Ratio]Ordered By: Kendra Persaud on 09-14-2021 Erythrocyte distribution width (RBC) [Ratio] 17.0 % 11.9-15.3 [facility] Estimated glomerular filtrat ion rate (GFR) non- AmericanOrdered By: Kendra Persaud on 09-14-2021 GFR/1.73 sq M.predicted among non-blacks MDRD (S/P/Bld) [Vol rate/Area] > 60 mL/Min [facility] Globulin Calc (S) [Mass/Vol] Ordered By: Kendra Persaud on 09-14-2021 Globulin (S) [Mass/Vol] 3.2 g/dL [facility] HCG ( test) IA.rapi d Ql (U)Ordered By: Kendra Persaud on 09-14-2021 HCG ( test) Ql (U) Negative [facility] Hematocrit Auto (Bld) [Volum e fraction]Ordered By: Kendra Persaud on 09-14-2021 Hematocrit (Bld) [Volume fraction] 31.9 % 34.0-46.4 [facility] Ketones Auto test strip (U) [Mass/Vol]Ordered By: Kendra Persaud on 09-14-2021 Ketones (U) [Mass/Vol] Negative Negative [facility] - Chemistry and C hemistry - challengeOrdered By: Kendra Persaud on 09-14-2021 Lipase [Catalytic activity/Vol] 36.0 U/L 22-51 [facility] - Hematology and Cell countsOrdered By: Kendra Persaud on 09-14-2021 Nucleated RBC/100 WBC (Bld) [Ratio] 0.0 % 0-0.5 [facility] Lymphocytes Auto (Bld) [#/Vo l]Ordered By: Kendra Persaud on 09-14-2021 Lymphocytes (Bld) [#/Vol] 4.1 10*3/uL 1.00-4.8 [facility] Lymphocytes/100 WBC Auto (Bl d)Ordered By: Kendra Persaud on 09-14-2021 Lymphocytes/100 WBC (Bld) 45.7 % [facility] MCH Auto (RBC) [Entitic mass ]Ordered By: Kendra Persaud on 09-14-2021 MCH (RBC) [Entitic mass] 21.3 pg 24.7-34.3 [facility] MCHC Auto (RBC) [Mass/Vol]Or dered By: Kendra Persaud on 09-14-2021 MCHC (RBC) [Mass/Vol] 30.4 g/dL 32.0-35.0 [facility] MCV Auto (RBC) [Entitic vol] Ordered By: Kendra Persaud on 09-14-2021 MCV (RBC) [Entitic vol] 70.0 fL 80-100 [facility] Monocytes Auto (Bld) [#/Vol] Ordered By: Kendra Persaud on 09-14-2021 Monocytes (Bld) [#/Vol] 0.7 10*3/uL 0.0-0.8 [facility] Monocytes/100 WBC Auto (Bld) Ordered By: Kendra Persaud on 09-14-2021 Monocytes/100 WBC (Bld) 7.8 % [facility] Neutrophils Auto (Bld) [#/Vo l]Ordered By: Kendra Persaud on 09-14-2021 Neutrophils (Bld) [#/Vol] 4.0 10*3/uL 1.8-7.7 [facility] Neutrophils/100 WBC Auto (Bl d)Ordered By: Kendra Persaud on 09-14-2021 Neutrophils/100 WBC (Bld) 44.8 % [facility] Nitrite Test strip Ql (U)Ord ered By: Kendra Persaud on 09-14-2021 Nitrite Ql (U) Negative Negative [facility] No Panel InformationOrdered By: Kendra Persaud on 09-14-2021 Estimated GFR () > 60 mL/Min [facility] Comment on above: GFR estimated refere nce range: According to KDOQI guidelines, <60 ml/min/1.73m2 is sufficient to diagnose a patient with chronic kidney disease. Pharmacy Creatinine Clearance (Chem 119.44 [facility] Platelet mean volume Auto (B ld) [Entitic vol]Ordered By: Kendra Persaud on 09-14-2021 Platelet mean volume (Bld) [Entitic vol] 7.4 fL 6.3-10.7 [facility] Platelets Auto (Bld) [#/Vol] Ordered By: Kendra Persaud on 09-14-2021 Platelets (Bld) [#/Vol] 604 10*3/uL 150-450 [facility] Protein Auto test strip (U) [Mass/Vol]Ordered By: Kendra Persaud on 09-14-2021 Protein (U) [Mass/Vol] Negative Negative [facility] Protein [Mass/volume] in Ser um or PlasmaOrdered By: Kendra Persaud on 09-14-2021 Protein [Mass/Vol] 6.9 g/dL 6.1-7.[address] [facility] RBC Auto (Bld) [#/Vol]Ordere d By: Kendra Persaud on 09-14-2021 RBC (Bld) [#/Vol] 4.55 10*6/uL 3.60-5.00 [facility] Serum or plasma alanine syed otransferase measurement without P-5'-P (enzymatic activiOrdered By: Kendra Persaud on 09-14-2021 ALT No additional P-5'-P [Catalytic activity/Vol] 16 U/L 10-60 [facility] Serum or plasma albumin/glob ulin mass ratioOrdered By: Kendra Persaud on 09-14-2021 Albumin/Globulin [Mass ratio] 1.2 {ratio} [facility] Serum or plasma alkaline zeeshan sphatase measurement (enzymatic activity/volume)Ordered By: Kendra Persaud on 09-14-2021 ALP [Catalytic activity/Vol] 48 U/L 32-92 [facility] Serum or plasma aspartate am inotransferase measurement (enzymatic activity/volume)Ordered By: Kendra Persaud 09-14-2021 AST [Catalytic activity/Vol] 17 U/L 10-42 [facility] Serum or plasma calcium donaldo urement (mass/volume)Ordered By: Kendra Persaud on 09-14-2021 Calcium [Mass/Vol] 9.0 mg/dL 8.2-10.[address] [facility] Serum or plasma chloride claudia surement (moles/volume)Ordered By: Kendra Persaud on 09-14-2021 Chloride [Moles/Vol] 105 mmol/L 95-114 [facility] Serum or plasma glucose donaldo urement (mass/volume)Ordered By: Kendra Persaud on 09-14-2021 Glucose [Mass/Vol] 94 mg/dL 70-[address] [facility] Comment on above: ADA recommended refe rence rangeRandom Glucose Reference Range is dependent on time and content of last meal. Glucose of more than 200 mg/dL in a nonstressed, ambulatory subject supports the diagnosis of Diabetes Mellitus. Serum or plasma potassium me asurement (moles/volume)Ordered By: Kendar Persaud on 09-14-2021 Potassium [Moles/Vol] 3.1 mmol/L 3.5-5.1 [facility] Serum or plasma sodium measu rement (moles/volume)Ordered By: Kendra Persaud on 09-14-2021 Sodium [Moles/Vol] 139 mmol/L 136-[address] [facility] Serum or plasma total biliru bin measurement (mass/volume)Ordered By: Kendra Persaud on 09-14-2021 Bilirubin [Mass/Vol] 0.5 mg/dL 0.3-1.2 [facility] Serum or plasma total carbon dioxide measurement (moles/volume)Ordered By: Kendra Persaud on 09-14-2021 CO2 [Moles/Vol] 23.7 mmol/L 22.0-30.0 [facility] Serum or plasma urea nitroge n measurement (mass/volume)Ordered By: Kendra Persaud on 09-14-2021 Urea nitrogen [Mass/Vol] 4 mg/dL 9-23 [facility] Specific gravity Auto test s trip (U) [Rel density]Ordered By: Kendra Persaud on 09-14-2021 Specific gravity (U) [Rel density] 1.004 1.001-1.030 [facility] Urine clarity by refractomet ry automatedOrdered By: Kendra Persaud 09-14-2021 Clarity Refractometry automated (U) Clear Clear [facility] Urine glucose measurement by automated test strip (mass/volume)Ordered By: Kendra Persaud on 09-14-2021 Glucose Auto test strip (U) [Mass/Vol] Normal mg/dL Normal [facility] Urine hemoglobin detection b y automated test stripOrdered By: Kendra Persaud on 09-14-2021 Hemoglobin Auto test strip Ql (U) Negative Negative [facility] Urine leukocyte esterase det ection by automated test stripOrdered By: Kendra Persaud on 09-14-2021 Leukocyte esterase Auto test strip Ql (U) Negative Negative [facility] Urobilinogen Auto test strip (U) [Mass/Vol]Ordered By: Kendra Persaud on 09-14-2021 Urobilinogen (U) [Mass/Vol] Normal mg/dL Normal [facility] pH Auto test strip (U)Ordere d By: Kendra Persaud on 09-14-2021 pH (U) 6.5 [pH] 5.0-9.0 [facility] Basophils Auto (Bld) [#/Vol] Ordered By: Augustus Santiago on 07-04-2021 Basophils (Bld) [#/Vol] 0.1 10*3/uL 0.0-0.2 [facility] Basophils/100 WBC Auto (Bld) Ordered By: Augustus Santiago on 07-04-2021 Basophils/100 WBC (Bld) 0.9 % [facility] Blood hemoglobin measurement (mass/volume)Ordered By: Augustus Santiago on 07-04-2021 Hemoglobin (Bld) [Mass/Vol] 10.2 g/dL 11.8-15.4 [facility] Blood leukocytes automated c ount (number/volume)Ordered By: Augustus Santiago on 07-04-2021 WBC (Bld) [#/Vol] 6.6 10*3/uL 4.5-11.[address] [facility] CT biopsyOrdered By: Augustus powell on 07-04-2021 Transferrin [Mass/Vol] 360 mg/dL 180-380 Fi [facility] Creatinine and Glomerular fi ltration rate.predicted panel (S/P/Bld)Ordered By: Augustus Santiago on 07-04-2021 Creatinine [Mass/Vol] 0.69 mg/dL 0.44-1.03 [facility] Eosinophils Auto (Bld) [#/Vo l]Ordered By: Augustus Santiago on 07-04-2021 Eosinophils (Bld) [#/Vol] 0.1 10*3/uL 0.0-0.45 [facility] Eosinophils/100 WBC Auto (Bl d)Ordered By: Augustus Santiago on 07-04-2021 Eosinophils/100 WBC (Bld) 1.2 % [facility] Erythrocyte distribution wid th Auto (RBC) [Ratio]Ordered By: Augustus Santiago on 07-04-2021 Erythrocyte distribution width (RBC) [Ratio] 17.2 % 11.9-15.3 [facility] Estimated glomerular filtrat ion rate (GFR) non- AmericanOrdered By: Augustus Santiago on 07-04-2021 GFR/1.73 sq M.predicted among non-blacks MDRD (S/P/Bld) [Vol rate/Area] > 60 mL/Min [facility] Hematocrit Auto (Bld) [Volum e fraction]Ordered By: Augustus Santiago on 07-04-2021 Hematocrit (Bld) [Volume fraction] 32.0 % 34.0-46.4 [facility] Iron [Mass/volume] in Serum or PlasmaOrdered By: Augustus Santiago on 07-04-2021 Iron [Mass/Vol] 10 ug/dL 40-150 [facility] Iron binding capacity [Mass/ volume] in Serum or PlasmaOrdered By: Augustus Santiago on 07-04-2021 Iron binding capacity [Mass/Vol] 504 ug/dL 255-450 [facility] Iron saturation [Mass Fracti on] in Serum or PlasmaOrdered By: Augustus Santiago on 07-04-2021 Iron saturation [Mass fraction] 1.0 % 20-50 [facility] Laboratory - Hematology and Cell countsOrdered By: Augustus Santiago on 07-04-2021 Nucleated RBC/100 WBC (Bld) [Ratio] 0.0 % 0-0.5 [facility] Lymphocytes Auto (Bld) [#/Vo l]Ordered By: Augustus Santiago on 07-04-2021 Lymphocytes (Bld) [#/Vol] 1.9 10*3/uL 1.00-4.8 [facility] Lymphocytes/100 WBC Auto (Bl d)Ordered By: Augustus Santiago on 07-04-2021 Lymphocytes/100 WBC (Bld) 28.4 % [facility] MCH Auto (RBC) [Entitic mass ]Ordered By: Augustus Santiago on 07-04-2021 MCH (RBC) [Entitic mass] 22.7 pg 24.7-34.3 [facility] MCHC Auto (RBC) [Mass/Vol]Or dered By: Augustus Santiago on 07-04-2021 MCHC (RBC) [Mass/Vol] 31.9 g/dL 32.0-35.0 [facility] MCV Auto (RBC) [Entitic vol] Ordered By: Augustus Santiago on 07-04-2021 MCV (RBC) [Entitic vol] 71.3 fL 80-100 F [facility] Monocytes Auto (Bld) [#/Vol] Ordered By: Augustus Santiago on 07-04-2021 Monocytes (Bld) [#/Vol] 0.5 10*3/uL 0.0-0.8 [facility] Monocytes/100 WBC Auto (Bld) Ordered By: Augustus Santiago on 07-04-2021 Monocytes/100 WBC (Bld) 7.6 % F [facility] Neutrophils Auto (Bld) [#/Vo l]Ordered By: Augustus Santiago on 07-04-2021 Neutrophils (Bld) [#/Vol] 4.1 10*3/uL 1.8-7.7 [facility] Neutrophils/100 WBC Auto (Bl d)Ordered By: Augustus Santiago on 07-04-2021 Neutrophils/100 WBC (Bld) 61.9 % [facility] No Panel InformationOrdered By: Augustus Santiago on 07-04-2021 D-Dimer Quantitative (PE/DVT) < 200 ng/mL 0-243 [facility] Comment on above: The reference range for [...] conditions. Estimated GFR () > 60 mL/Min [facility] Comment on above: GFR estimated refere nce range: According to KDOQI guidelines, <60 ml/min/1.73m2 is sufficient to diagnose a patient with chronic kidney disease. Pharmacy Creatinine Clearance (Chem N/A [facility] Platelet mean volume Auto (B ld) [Entitic vol]Ordered By: Augustus Santiago on 07-04-2021 Platelet mean volume (Bld) [Entitic vol] 7.9 fL 6.3-10.7 [facility] Platelets Auto (Bld) [#/Vol] Ordered By: Augustus Santiago on 07-04-2021 Platelets (Bld) [#/Vol] 457 10*3/uL 150-450 [facility] RBC Auto (Bld) [#/Vol]Ordere d By: Augustus Santiago on 07-04-2021 RBC (Bld) [#/Vol] 4.48 10*6/uL 3.60-5.00 [facility] Serum or plasma calcium donaldo urement (mass/volume)Ordered By: Augustus Santiago on 07-04-2021 Calcium [Mass/Vol] 8.9 mg/dL 8.2-10.[address] [facility] Serum or plasma chloride claudia surement (moles/volume)Ordered By: Augustus Santiago on 07-04-2021 Chloride [Moles/Vol] 105 mmol/L 95-114 [facility] Serum or plasma glucose donaldo urement (mass/volume)Ordered By: Augustus Santiago on 07-04-2021 Glucose [Mass/Vol] 110 mg/dL 70-[address] [facility] Comment on above: ADA recommended refe rence rangeRandom Glucose Reference Range is dependent on time and content of last meal. Glucose of more than 200 mg/dL in a nonstressed, ambulatory subject supports the diagnosis of Diabetes Mellitus. Serum or plasma potassium me asurement (moles/volume)Ordered By: Augustus Santiago on 07-04-2021 Potassium [Moles/Vol] 3.5 mmol/L 3.5-5.1 [facility] Serum or plasma sodium measu rement (moles/volume)Ordered By: Augustus Santiago on 07-04-2021 Sodium [Moles/Vol] 136 mmol/L 136-[address] [facility] Serum or plasma total carbon dioxide measurement (moles/volume)Ordered By: Augustus Santiago on 07-04-2021 CO2 [Moles/Vol] 23.0 mmol/L 22.0-30.0 [facility] Serum or plasma urea nitroge n measurement (mass/volume)Ordered By: Augustus Santigao on 07-04-2021 Urea nitrogen [Mass/Vol] 5 mg/dL 03-05 [facility] Cardiac Stress Teston 2020 Cardiac Stress Test [facility] [address], [address], [place] [address] TRANSTHORACIC ECHOCARDIOGRAM REPORT Patient Name: LIVIA NOYOLA Reading Physician: [id number] Raphael Alas MD Study Date: 08/06/2020 Referring Physician: [id number] CANTU MRN/PID: [id number] PCP: Jennifer Duran Accession/Order#: [id number] Department Location: [facility] Date of : 1985 Fellow: Gender: F Nurse: Admit 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: Josephine Newton RDCS, RVT Height: 165.10 cm CC Report to: Weight: 88.00 kg Study Type: Echocardiogram BSA: 1.95 m2 Diagnosis/ICD: R06.00-Dyspnea, unspecified; R00.0-Tachycardia, unspecified Indication: Obesity, Family History of CAD Procedure/CPT: Echo Complete w Full [id number] Study Detail: The following Echo studies were [...] 0.9 m/s (0.6-0.9m/s) PV Max P.0 mmHg [id number] Raphael Alas MD Electronically signed on 08/07/2020 at 4:26:59 PM Final Normal [facility] Vital Signs Date Time Vital Sign Value Performing Clinician Facility 07-31-2023 18:01-0500 Diastolic blood pressure 87 mm[Hg] Jignesh Dumont [facility] 07-31-2023 18:01-0500 Heart rate 121 /min Jignesh Dumont [facility] 07-31-2023 18:01-0500 Mean blood pressure 99 mm[Hg] Jignesh Dumont [facility] 07-31-2023 18:01-0500 Respiratory rate 16 /min Jignesh Dumont [facility] 07-31-2023 18:01-0500 SaO2% (BldA) [Mass fraction] 99 % Jignesh Dumont [facility] 07-31-2023 18:01-0500 Systolic blood pressure 123 mm[Hg] iJgnesh Dumont [facility] 07-31-2023 17:00-0500 Diastolic blood pressure 77 mm[Hg] Jignesh Dumont [facility] 07-31-2023 17:00-0500 Heart rate 96 /min Jignesh Dumont [facility] 07-31-2023 17:00-0500 Mean blood pressure 92 mm[Hg] Jignesh Dumont [facility] 07-31-2023 17:00-0500 Systolic blood pressure 122 mm[Hg] Jignesh Tim [facility] 07-31-2023 16:07-0500 Diastolic blood pressure 90 mm[Hg] Jignesh Tim [facility] 07-31-2023 16:07-0500 Heart rate 117 /min Jignesh Tim [facility] 07-31-2023 16:07-0500 Mean blood pressure 105 mm[Hg] Jignesh Tim [facility] 07-31-2023 16:07-0500 Respiratory rate 19 /min Jignesh Tim [facility] 07-31-2023 16:07-0500 SaO2% (BldA) [Mass fraction] 100 % Jignesh Dumont [facility] 07-31-2023 16:07-0500 Systolic blood pressure 135 mm[Hg] Jignesh Tim [facility] 07-31-2023 16:06-0500 Respiratory rate 18 /min Jignesh Tim [facility] 07-31-2023 15:34-0500 Body temperature 97.88 [degF] Jignesh Tim [facility] 07-31-2023 15:34-0500 Heart rate 136 /min Jignesh Tim [facility] 07-31-2023 15:34-0500 Respiratory rate 18 /min Jignesh Tim [facility] 07-19-2023 12:40-0500 Body height 165.1 cm Jennifer Duran Other [employer] Other 04-30-2023 18:19-0500 Diastolic blood pressure 82 mm[Hg] DO Jennifer Duran Work Phone: [facility] 04-30-2023 18:19-0500 Heart rate 128 /min DO Jennifer Duran Work Phone: [facility] 04-30-2023 18:19-0500 Respiratory rate 18 /min DO Jennifer Duran Work Phone: [facility] 04-30-2023 18:19-0500 SaO2% (BldA) [Mass fraction] 99 % DO Jennifer Duran Work Phone: [facility] 04-30-2023 18:19-0500 Systolic blood pressure 116 mm[Hg] DO Jennifer Duran Work Phone: [facility] 04-30-2023 16:43-0500 Body height 165.1 cm DO Jennifer Duran Work Phone: [facility] 04-30-2023 16:43-0500 Body temperature 98.1 [degF] DO Jennifer Duran Work Phone: [facility] 04-30-2023 16:43-0500 Body weight 62.3 kg DO Jennifer Duran Work Phone: [facility] 04-24-2023 15:51-0500 Diastolic blood pressure 81 mm[Hg] Jignesh Dumont [facility] 04-24-2023 15:51-0500 Heart rate 98 /min Jignesh Dumont [facility] 04-24-2023 15:51-0500 Mean blood pressure 94 mm[Hg] Jignesh Tim [facility] 04-24-2023 15:51-0500 Respiratory rate 17 /min Jignesh Tim [facility] 04-24-2023 15:51-0500 SaO2% (BldA) [Mass fraction] 99 % Jignesh Dumont [facility] 04-24-2023 15:51-0500 Systolic blood pressure 120 mm[Hg] Jignesh Dumont [facility] 04-24-2023 15:00-0500 Diastolic blood pressure 72 mm[Hg] Jignesh Tim [facility] 04-24-2023 15:00-0500 Heart rate 85 /min Jignesh Tim [facility] 04-24-2023 15:00-0500 Mean blood pressure 87 mm[Hg] Jignesh Tim [facility] 04-24-2023 15:00-0500 Respiratory rate 16 /min Jignesh Tim [facility] 04-24-2023 15:00-0500 SaO2% (BldA) [Mass fraction] 96 % Jignesh Tim [facility] 04-24-2023 15:00-0500 Systolic blood pressure 117 mm[Hg] Jignesh Tim [facility] 04-24-2023 14:00-0500 Diastolic blood pressure 88 mm[Hg] Jignesh Tim [facility] 04-24-2023 14:00-0500 Heart rate 99 /min Jignesh Tim [facility] 04-24-2023 14:00-0500 Mean blood pressure 100 mm[Hg] Jignesh Tim [facility] 04-24-2023 14:00-0500 Respiratory rate 18 /min Jignesh Tim [facility] 04-24-2023 14:00-0500 SaO2% (BldA) [Mass fraction] 97 % Jignesh Tim [facility] 04-24-2023 14:00-0500 Systolic blood pressure 124 mm[Hg] Jignesh Tim [facility] 04-24-2023 13:29-0500 Body temperature 99.14 [degF] Jignesh Dumont [facility] 04-24-2023 13:29-0500 Heart rate 118 /min Jignesh Dumont [facility] 04-03-2023 00:20-0400 Diastolic blood pressure 70 mm[Hg] DO Jennifer Kendallivelisse Work Phone: [facility] 04-03-2023 00:20-0400 Heart rate 80 /min DO Jennifer Kendallivelisse Work Phone: [facility] 04-03-2023 00:20-0400 SaO2% (BldA) [Mass fraction] 98 % DO Jennifer Kendallivelisse Work Phone: [facility] 04-03-2023 00:20-0400 Systolic blood pressure 122 mm[Hg] DO Jennifer Duran Work Phone: [facility] 04-02-2023 21:48-0400 Diastolic blood pressure 75 mm[Hg] DO Jennifer Kendallivelisse Work Phone: [facility] 04-02-2023 21:48-0400 Heart rate 90 /min DO Jennifer Kendallivelisse Work Phone: [facility] 04-02-2023 21:48-0400 Respiratory rate 20 /min DO Jennifer Kendallivelisse Work Phone: [facility] 04-02-2023 21:48-0400 SaO2% (BldA) [Mass fraction] 98 % DO Jennifer Kendallivelisse Work Phone: [facility] 04-02-2023 21:48-0400 Systolic blood pressure 109 mm[Hg] DO Jennifer Kendallivelisse Work Phone: [facility] 04-02-2023 20:23-0400 Body height 165.1 cm DO Jennifer Kendallivelisse Work Phone: [facility] 04-02-2023 20:23-0400 Body temperature 98.2 [degF] DO Jennifer Girvin Work Phone: [facility] 04-02-2023 20:23-0400 Body weight 81.64 kg DO Jennifer Girivelisse Work Phone: [facility] 03-29-2023 16:11-0400 Body temperature 97.8 [degF] DO Jennifer Girvin Work Phone: [facility] 03-29-2023 16:11-0400 Diastolic blood pressure 79 mm[Hg] DO Jennifer Girvin Work Phone: [facility] 03-29-2023 16:11-0400 Heart rate 104 /min DO Jennifer Girvin Work Phone: [facility] 03-29-2023 16:11-0400 Respiratory rate 16 /min DO Jennifer Girvin Work Phone: [facility] 03-29-2023 16:11-0400 SaO2% (BldA) [Mass fraction] 98 % DO Jennifer Girivelisse Work Phone: [facility] 03-29-2023 16:11-0400 Systolic blood pressure 123 mm[Hg] DO Jennifer Girivelisse Work Phone: [facility] 03-29-2023 06:35-0400 Body height 165.1 cm DO Jennifer Girivelisse Work Phone: [facility] 03-29-2023 06:35-0400 Body weight 87.5 kg DO Jennifer Girivelisse Work Phone: [facility] 03-29-2023 05:41-0400 Diastolic blood pressure 85 mm[Hg] DO Jennifer Girivelisse Work Phone: [facility] 03-29-2023 05:41-0400 Heart rate 110 /min DO Jennifer Girvin Work Phone: [facility] 03-29-2023 05:41-0400 Respiratory rate 18 /min DO Jennifer Girvin Work Phone: [facility] 03-29-2023 05:41-0400 SaO2% (BldA) [Mass fraction] 100 % DO Jennifer Girivelisse Work Phone: [facility] 03-29-2023 05:41-0400 Systolic blood pressure 160 mm[Hg] DO Jennifer Girivelisse Work Phone: [facility] 03-29-2023 01:39-0400 Body height 165.1 cm DO Jennifer Girivelisse Work Phone: [facility] 03-29-2023 01:39-0400 Body temperature 97.2 [degF] DO Jennifer Girivelisse Work Phone: [facility] 03-29-2023 01:39-0400 Body weight 87 kg DO Jennifer Girivelisse Work Phone: [facility] 02-06-2023 04:00-0400 Diastolic blood pressure 74 mm[Hg] DO Jennifer Duran Work Phone: [facility] 02-06-2023 04:00-0400 Heart rate 79 /min DO Jennifer Duran Work Phone: [facility] 02-06-2023 04:00-0400 Respiratory rate 15 /min DO Jennifer Duran Work Phone: [facility] 02-06-2023 04:00-0400 SaO2% (BldA) [Mass fraction] 99 % DO Jennifer Duran Work Phone: [facility] 02-06-2023 04:00-0400 Systolic blood pressure 119 mm[Hg] DO Jennifer Girivelisse Work Phone: [facility] 02-05-2023 23:41-0400 Body height 165.1 cm DO Jennifer Girivelisse Work Phone: [facility] 02-05-2023 23:41-0400 Body temperature 98 [degF] DO Jennifer Girivelisse Work Phone: [facility] 02-05-2023 23:41-0400 Body weight 81.64 kg DO Jennifer Girivelisse Work Phone: [facility] 01-12-2023 14:40-0400 Body height 165.1 cm Jennifer Duran Other [employer] Other 01-12-2023 14:40-0400 Body mass index (BMI) [Ratio] 33.44 kg/m2 Jennifer Duran Other [employer] Other 01-12-2023 14:40-0400 Body temperature 99.5 [degF] Jennifer Duran Other [employer] Other 01-12-2023 14:40-0400 Body weight 91.17 kg Jennifer Duran Other [employer] Other 01-12-2023 14:40-0400 Diastolic blood pressure 78 mm[Hg] Jennifer Duran Other [employer] Other 01-12-2023 14:40-0400 Respiratory rate 18 /min Jennifer Enochivelisse Other [employer] Other 01-12-2023 14:40-0400 SaO2% (BldA) [Mass fraction] 97 % Jennifer Enochivelisse Other [employer] Other 01-12-2023 14:40-0400 Systolic blood pressure 110 mm[Hg] Jennifer Duran Other [employer] Other 10-11-2022 16:20-0400 Body height 165.1 cm Jennifer Duran Other [employer] Other 07-12-2022 16:20-0500 Body height 165.1 cm Jennifer Duran Other [employer] Other 07-12-2022 16:20-0500 Body mass index (BMI) [Ratio] 31.2 kg/m2 Jennifer Duran Other [employer] Other 07-12-2022 16:20-0500 Body temperature 97.2 [degF] Jennifer Duran Other [employer] Other 07-12-2022 16:20-0500 Body weight 85.05 kg Jennifer Duran Other [employer] Other 07-12-2022 16:20-0500 Diastolic blood pressure 74 mm[Hg] Jennifer Duran Other [employer] Other 07-12-2022 16:20-0500 Respiratory rate 18 /min Jennifer Duran Other [employer] Other 07-12-2022 16:20-0500 SaO2% (BldA) [Mass fraction] 99 % Jennifer Duran Other [employer] Other 07-12-2022 16:20-0500 Systolic blood pressure 106 mm[Hg] Jennifer Duran Other [employer] Other 04-28-2022 04:00-0500 Diastolic blood pressure 70 mm[Hg] DO Jennifer Kendallivelisse Work Phone: [facility] 04-28-2022 04:00-0500 Heart rate 81 /min DO Jennifer Wilber Work Phone: [facility] 04-28-2022 04:00-0500 SaO2% (BldA) [Mass fraction] 96 % DO Jennifer Duran Work Phone: [facility] 04-28-2022 04:00-0500 Systolic blood pressure 110 mm[Hg] DO Jennifer Kendallivelisse Work Phone: [facility] 04-28-2022 03:56-0500 Body height 165.1 cm DO Jennifer Duran Work Phone: [facility] 04-28-2022 03:56-0500 Body weight 80 kg DO Jennifer Duran Work Phone: [facility] 04-28-2022 03:56-0500 Respiratory rate 18 /min DO Jennifer Duran Work Phone: [facility] 04-28-2022 00:13-0500 Body temperature 97.2 [degF] DO Jennifer Duran Work Phone: [facility] 04-12-2022 15:40-0400 Body height 165.1 cm Jennifer Enochivelisse Other [employer] [facility] [employer] Other 04-12-2022 15:40-0400 Body mass index (BMI) [Ratio] 30.37 kg/m2 Jennifer Duran Other [employer] Other 04-12-2022 15:40-0400 Body temperature 98.8 [degF] Jennifer Duran Other [employer] Other 04-12-2022 15:40-0400 Body weight 82.78 kg Jennifer Kendallivelisse Other [employer] Other 04-12-2022 15:40-0400 Diastolic blood pressure 76 mm[Hg] Jennifer Duran Other [employer] Other 04-12-2022 15:40-0400 Respiratory rate 18 /min Jennifer Enochivelisse Other [employer] Other 04-12-2022 15:40-0400 SaO2% (BldA) [Mass fraction] 98 % Jennifer Duran Other [employer] Other 04-12-2022 15:40-0400 Systolic blood pressure 110 mm[Hg] Jennifer Duran Other [employer] Other 04-09-2022 13:32-0400 Body temperature 97.59 [degF] Chair Patria Work Phone: [facility] 04-09-2022 13:32-0400 Diastolic blood pressure 64 mm[Hg] Chair Harmon Work Phone: [facility] 04-09-2022 13:32-0400 Heart rate 114 /min Chair Harmon Work Phone: [facility] 04-09-2022 13:32-0400 Respiratory rate 18 /min Chair Harmon Work Phone: [facility] 04-09-2022 13:32-0400 SaO2% (BldA) [Mass fraction] 97 % Chair Harmon Work Phone: [facility] 04-09-2022 13:32-0400 Systolic blood pressure 116 mm[Hg] Chair Harmon Work Phone: [facility] 03-26-2022 13:54-0400 Body temperature 97.9 [degF] Chair Harmon Work Phone: [facility] 03-26-2022 13:54-0400 Diastolic blood pressure 75 mm[Hg] Chair Harmon Work Phone: [facility] 03-26-2022 13:54-0400 Heart rate 82 /min Chair Patria Work Phone: [facility] 03-26-2022 13:54-0400 Respiratory rate 18 /min Chair Patria Work Phone: [facility] 03-26-2022 13:54-0400 SaO2% (BldA) [Mass fraction] 100 % Chair Harmon Work Phone: [facility] 03-26-2022 13:54-0400 Systolic blood pressure 106 mm[Hg] Chair Patria Work Phone: [facility] 03-10-2022 13:54-0400 Body height 165.1 cm Gil Ni APRN.CNP Work Phone: [facility] 03-10-2022 13:54-0400 Body temperature 97.9 [degF] Gil Ni APRN.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 Work Phone: [facility] 03-10-2022 13:54-0400 Body weight 83.37 kg Gil Ni APRN.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 Work Phone: [facility] 03-10-2022 13:54-0400 Diastolic blood pressure 75 mm[Hg] Gil Ni APRN.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 Work Phone: [facility] 03-10-2022 13:54-0400 Heart rate 95 /min Gil Ni APRN.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 Work Phone: [facility] 03-10-2022 13:54-0400 Respiratory rate 16 /min Gil Ni APRN.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 Work Phone: [facility] 03-10-2022 13:54-0400 SaO2% (BldA) [Mass fraction] 100 % Gil Ni APRN.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 Work Phone: [facility] 03-10-2022 13:54-0400 Systolic blood pressure 130 mm[Hg] Gil Ni APRN.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 Work Phone: [facility] 12-04-2021 12:49-0400 Blood Pressure Location [employer] [facility] 12-04-2021 12:49-0400 Body temperature 98.42 [degF] Yamilka Orzech [facility] 12-04-2021 12:49-0400 Diastolic blood pressure 82 mm[Hg] Yamilka Orzech [facility] 12-04-2021 12:49-0400 Heart rate 110 /min Yamilka Orzech [facility] 12-04-2021 12:49-0400 SaO2% (BldA) [Mass fraction] 99 % Yamilka [employer] [facility] 12-04-2021 12:49-0400 Systolic blood pressure 126 mm[Hg] [facility] [employer] [facility] 10-16-2021 09:10-0400 Body height 165.1 cm Jennifer Duran Other [facility] [employer] Other 09-14-2021 19:31-0400 Diastolic blood pressure 82 mm[Hg] DO Jennifer Duran Work Phone: [facility] 09-14-2021 19:31-0400 Heart rate 87 /min DO Jennifer Duran Work Phone: [facility] 09-14-2021 19:31-0400 Respiratory rate 18 /min DO Jennifer Duran Work Phone: [facility] 09-14-2021 19:31-0400 SaO2% (BldA) [Mass fraction] 99 % DO Jennifer Duran Work Phone: [facility] 09-14-2021 19:31-0400 Systolic blood pressure 126 mm[Hg] DO Jennifer Duran Work Phone: [facility] 09-14-2021 14:45-0400 Body height 165.1 cm DO Jennifer Duran Work Phone: [facility] 09-14-2021 14:45-0400 Body mass index (BMI) [Ratio] 30.7 kg/m2 DO Jennifer Duran Work Phone: [facility] 09-14-2021 14:45-0400 Body temperature 98 [degF] DO Jennifer Duran Work Phone: [facility] 09-14-2021 14:45-0400 Body weight 83.91 kg DO Jennifer Duran Work Phone: [facility] 04-21-2021 16:20-0500 Body height 165.1 cm Jennifer Duran Other [employer] Other 04-21-2021 16:20-0500 Body mass index (BMI) [Ratio] 32.28 kg/m2 Jennifer Enochivelisse Other [employer] Other 04-21-2021 16:20-0500 Body temperature 98.3 [degF] Jennifer Enochivelisse Other [employer] Other 04-21-2021 16:20-0500 Body weight 88 kg Jennifer Duran Other [employer] Other 04-21-2021 16:20-0500 Diastolic blood pressure 82 mm[Hg] Jennifer Enochivelisse Other [employer] Other 04-21-2021 16:20-0500 SaO2% (BldA) [Mass fraction] 98 % Jennifer Enochivelisse Other [employer] Other 04-21-2021 16:20-0500 Systolic blood pressure 124 mm[Hg] Jennifer Duran Other [employer] Other Encounters Encounter Date Encounter Type Care Provider Facility Start: 09-06-2023 End: 09-06-2023 Emergency department patient visit DESTINI [facility] Start: 07-31-2023 End: 07-31-2023 Emergency department patient visit Jignesh Dumont [place] Start: 07-31-2023 End: 07-31-2023 Emergency department patient visit Jignesh Dumont [facility] Start: 07-28-2023 End: 07-28-2023 ambulatory PHYSICIAN NO [facility] Work Phone: Start: 07-28-2023 End: 07-28-2023 Patient encounter procedure PHYSICIAN NO [facility] Work Phone: Start: 07-19-2023 End: 07-19-2023 ambulatory Jennifer Duran Other [facility] Other Start: 07-19-2023 Telephone encounter Jennifer Duran [facility] Start: 06-22-2023 End: 06-23-2023 Emergency department patient visit EVGENY SEN MD Facility:[facility] Start: 06-07-2023 End: 06-07-2023 ambulatory Jennifer Duran Other [facility] Other Start: 06-07-2023 Telephone encounter Jennifer Duran [facility] Start: 05-30-2023 End: 05-30-2023 [facility] Start: 05-17-2023 End: 05-18-2023 Emergency department patient visit Ritesh Heath [place] Start: 05-16-2023 End: 05-16-2023 ambulatory Jennifer Duran Other [facility] Other Start: 05-16-2023 Telephone encounter Jennifer Duran [facility] [place] Start: 04-30-2023 End: 04-30-2023 Emergency department patient visit Elier Jackson Facility:[facility] Start: 04-30-2023 End: 04-30-2023 Emergency department patient visit DO Jennifer Duran Work Phone: [facility] Work Phone: Start: 04-24-2023 End: 04-24-2023 Emergency department patient visit Jignesh Dumont [facility] Start: 04-24-2023 End: 04-24-2023 Emergency department patient visit Jignesh Dumont [facility] Start: 04-18-2023 End: 04-18-2023 ambulatory Jennifer Duran Other [facility] Other Start: 04-18-2023 Telephone encounter Jennifer Duran [facility] [place] Start: 04-11-2023 End: 04-11-2023 ambulatory Jennifer Duran Other [facility] Other Start: 04-11-2023 Telephone encounter Jennifer Kendallivelisse [facility] [place] Start: 04-04-2023 End: 04-04-2023 ambulatory Jennifer Duran Other [facility] Other Start: 04-04-2023 Telephone encounter Jennifer Enochivelisse [facility] Start: 04-02-2023 End: 04-03-2023 Emergency department patient visit Jennifer Duran Facility:[facility] Start: 04-02-2023 End: 04-03-2023 Emergency department patient visit DO Jennifer Duran Work Phone: [facility] Work Phone: Start: 04-01-2023 End: 04-01-2023 ambulatory Jennifer Duran Other [facility] Other Start: 04-01-2023 Telephone encounter Jennifer Wilber [facility] [place] Start: 03-29-2023 Telephone encounter Jennifer Duran [facility] Start: 03-29-2023 End: 03-29-2023 ambulatory Kiko Saenz [facility] [facility] Other Start: 03-29-2023 End: 03-29-2023 Evaluation and management of inpatient DO Jennifer Duran Work Phone: [facility] Work Phone: Start: 03-29-2023 End: 03-29-2023 observation encounter DO Jennifer Duran Work Phone: [facility] Work Phone: Start: 03-13-2023 End: 03-13-2023 ambulatory Jennifer Duran Facility:[facility] Start: 03-13-2023 End: 03-13-2023 ambulatory DO Jennifer Duran Work Phone: [facility] Work Phone: Start: 03-13-2023 End: 03-13-2023 Patient encounter procedure DO Jennifer Duran Work Phone: [facility] Vacc[facility] Start: 03-02-2023 End: 03-02-2023 ambulatory Jennifer Duran Other [facility] Other Start: 03-02-2023 Telephone encounter Jennifer Duran [facility] Start: 02-06-2023 End: 02-06-2023 Emergency department patient visit Jennifer Kendallivelisse Facility:[facility] Start: 02-05-2023 End: 02-06-2023 Emergency department patient visit DO Jennifer Duran Work Phone: [facility] Work Phone: Start: 01-12-2023 End: 01-12-2023 ambulatory Jennifer Kendallivelisse Other [facility] Other Start: 01-12-2023 Office outpatient visit 15 minutes Jennifer Duarn [facility] Start: 12-09-2022 End: 12-09-2022 ambulatory Jennifer Duran Other [employer] Other Start: 12-09-2022 Telephone encounter Jennifer Duran [facility] Start: 10-11-2022 End: 10-11-2022 ambulatory Jennifer Duran Other [facility] Other Start: 10-11-2022 Telephone encounter Jennifer Duran [facility] Start: 09-22-2022 End: 09-22-2022 ambulatory Jennifer Duran Other [facility] Other Start: 09-22-2022 Telephone encounter Jennifer Duran [facility] Start: 07-28-2022 End: 07-28-2022 ambulatory BELKIS SANDOVAL Facility:[facility] Start: 07-12-2022 End: 07-12-2022 ambulatory Jennifer Duran Other [facility] Other Start: 07-12-2022 Office outpatient visit 15 minutes Jennifer Duran [facility] [place] Start: 07-12-2022 Telephone encounter Jennifer MOLINA [facility] Start: 06-02-2022 End: 06-02-2022 ambulatory Jennifer Duran Other [facility] Other Start: 06-02-2022 Telephone encounter Jennifer Duran [facility] Start: 05-04-2022 End: 05-04-2022 ambulatory Jennifer Duran Other [facility] Other Start: 05-04-2022 Telephone encounter Jennifer Duran [facility] [place] Start: 04-30-2022 Telephone encounter Gil arechiga APRN.[employer]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 Work Phone: Hematology/Oncology Comment on above: Lab Orders Start: 04-28-2022 Evaluation and management of inpatient DO Jennifer Duran Work Phone: [facility] [address] Start: 04-28-2022 observation encounter DO Jennifer Duran Work Phone: [facility] Work Phone: Start: 04-12-2022 End: 04-12-2022 ambulatory Jennifer Duran Other [employer] Other Start: 04-12-2022 Office outpatient visit 15 minutes Jennifer Duran [facility] Start: 04-12-2022 Telephone encounter Jennifer Duran [facility] [place] Start: 04-09-2022 End: 04-10-2022 ambulatory Stephenie Suh 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 Arts [employer] Medicine Comment on above: Art Therapy Iron deficiency anem ia due to chronic blood loss (Primary Dx); Malabsorption of iron; Cyst of left ovary Start: 03-26-2022 End: 03-27-2022 ambulatory GIL NI Facility:[facility] Start: 03-26-2022 End: 03-26-2022 ambulatory Chair Walton Harmon Work Phone: Hematology/Oncology Comment on above: Iron deficiency anem ia due to chronic blood loss (Primary Dx); Malabsorption of iron; Cyst of left ovary Start: 03-15-2022 Telephone encounter Sharon Saavedra AUTOMOBILE MECHANIC APPRENTICE H ematology/Oncology Comment on above: Social Work Services Start: 03-10-2022 End: 03-11-2022 ambulatory Gil Ni MACHINE OPERATOR HOP PICKER.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 Work Phone: Hematology/Oncology Comment on above: Iron deficiency anem ia due to chronic blood loss (Primary Dx); Malabsorption of iron Start: 03-10-2022 End: 03-10-2022 Patient encounter procedure Gil Ni MACHINE OPERATOR HOP PICKER.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 Work Phone: [facility] Start: 02-18-2022 Telephone encounter Gil arechiga MACHINE OPERATOR HOP PICKER.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 Work Phone: Hematology/Oncology Comment on above: Lab Orders Start: 02-16-2022 End: 02-16-2022 ambulatory Jennifer Duran Other [facility] Other Start: 02-16-2022 Telephone encounter Jennifer Duran [facility] Start: 02-12-2022 End: 02-12-2022 Patient encounter procedure DO Jennifer Duran Work Phone: [facility] [place] Start: 01-07-2022 End: 01-07-2022 ambulatory Jennifer Duran Other [employer] Other Start: 01-07-2022 Telephone encounter Jennifer Duran [facility] Start: 12-04-2021 End: 12-04-2021 Patient encounter procedure Yamilka Lorenzo [facility] Start: 10-29-2021 End: 10-29-2021 ambulatory Jennifer Duran Other [facility] Other Start: 10-29-2021 Telephone encounter Jennifer Duran [facility] Start: 10-16-2021 End: 10-16-2021 ambulatory Jennifer Duran Other [employer] Other Start: 10-16-2021 Office outpatient visit 15 minutes Jennifer Duran [facility] Start: 09-21-2021 End: 09-21-2021 ambulatory Jennifer Duran Other [employer] Other Start: 09-21-2021 Telephone encounter Jennifer Duran [facility] [place] Start: 09-14-2021 End: 09-14-2021 Emergency department patient visit DO Jennifer Duran Work Phone: [facility] Start: 08-18-2021 End: 08-18-2021 ambulatory Jennifer Duran Other [employer] Other Start: 08-18-2021 Telephone encounter Jennifer Duran [facility] [place] Start: 08-11-2021 End: 08-11-2021 ambulatory Jennifer Duran Other [employer] Other Start: 08-11-2021 Telephone encounter Jennifer Duran [facility] Start: 08-03-2021 End: 08-03-2021 ambulatory Jennifer Duran Other [employer] Other Start: 08-03-2021 Telephone encounter Jennifer Duran [facility] [place] Start: 07-04-2021 End: 07-04-2021 Patient encounter procedure DO Jennifer Duran Work Phone: [facility] [place] Start: 06-04-2021 End: 06-04-2021 ambulatory Jennifer Duran Other [facility] Other Start: 06-04-2021 Telephone encounter Jennifer Duran [facility] Start: 05-18-2021 End: 05-18-2021 ambulatory Jennifer Duran Other [employer] Other Start: 05-18-2021 Telephone encounter Jennifer Duran [facility] Start: 04-21-2021 End: 04-21-2021 ambulatory Jennifer Duran Other [facility] Other Start: 04-21-2021 Encounter for genera l adult medical examination without abnormal findings Jennifer Duran [facility] Start: 04-21-2021 Periodic preventive med est patient 18-39 yrs Jennifer Duran [facility] Procedures Date Procedure Procedure Detail Performing Clinician [...] Phone: Start: 09-14-2021 Transvaginal echography DO Jennifer Duran Work Phone: Plan of Treatment Date Care Activity Detail Author Start: 03-30-2023 Comprehensive metabo lic 2000 panel - Serum or Plasma [facility] Start: 03-30-2023 [facility] Start: 03-29-2023 [facility] Start: 03-29-2023 Referral to c programmer [facility] Start: 03-29-2023 Hospital admission [facility] Start: 03-29-2023 [facility] Start: 03-29-2023 Computed tomography of abdomen and pelvis with contrast CT abdomen pelvis w con [facility] Start: 03-29-2023 CT Abdomen and Pelvi s W contrast IV [facility] Start: 03-29-2023 [facility] Start[facility] 03-29-2023 US Pelvis transvaginal [facility] Start: 03-29-2023 Pelvic echography US pelvic complete [facility] Start: 03-29-2023 US Pelvis [facility] Start: 02-06-2023 Pelvic echography US pelvic complete [facility] Start: 02-06-2023 US Pelvis [facility] Start: 02-06-2023 [facility] Start: 02-06-2023 US Pelvis transvaginal [facility] Start: 02-05-2023 Computed tomography of abdomen and pelvis with contrast CT abdomen pelvis w con [facility] Start: 02-05-2023 CT Abdomen and Pelvi s W contrast IV [facility] Start: 05-05-2022 End: 07-05-2022 CBC W Auto Differential panel - Blood CBC + DIFF Lab Routine Iron deficiency anemia due to chronic blood loss Malabsorption of iron Expected: 05/05/2022, Expires: 07/05/2022 [facility] Work Phone: Comment on above: Expected: 05/05/2022 , Expires: 07/05/2022 Start: 05-03-2022 End: 07-03-2022 Comprehensive metabolic 2000 panel - Serum or Plasma COMP METABOLIC PANEL Lab Routine Iron deficiency anemia due to chronic blood loss Expected: 05/03/2022, Expires: 07/03/2022 [facility] Work Phone: Comment on above: Expected: 05/03/2022 , Expires: 07/03/2022 Start: 04-28-2022 Pelvic echography US pelvic complete [facility] Start: 04-28-2022 US Pelvis [facility] Start: 04-28-2022 CT Abdomen and Pelvi s WO contrast [facility] Start: 04-28-2022 CT of abdomen and pe lvis without contrast CT abdomen pelvis wo con [facility] Start: 04-28-2022 Transvaginal echography US transvagi nal [facility] Start: 04-28-2022 US Pelvis transvaginal [facility] Start: 02-23-2022 End: 02-20-2023 CBC W Auto Differential panel - Blood CBC + DIFF Lab Routine Iron deficiency anemia due to chronic blood loss Expected: 02/23/2022 (Approximate), Expires: 02/20/2023 [facility] Work Phone: Comment on above: Expected: 02/23/2022 (Approximate), Expires: 02/20/2023 Start: 02-23-2022 End: 02-20-2023 Cobalamin (Vitamin B12) [Mass/volume] in Serum or Plasma VITAMIN B12 BLOOD Lab Routine Iron deficiency anemia due to chronic blood loss Expected: 02/23/2022 (Approximate), Expires: 02/20/2023 [facility] Work Phone: Comment on above: Expected: 02/23/2022 (Approximate), Expires: 02/20/2023 Start: 02-23-2022 End: 02-20-2023 Comprehensive metabolic 2000 panel - Serum or Plasma COMP METABOLIC PANEL Lab Routine Iron deficiency anemia due to chronic blood loss Expected: 02/23/2022 (Approximate), Expires: 02/20/2023 [facility] Work Phone: Comment on above: Expected: 02/23/2022 (Approximate), Expires: 02/20/2023 Start: 02-23-2022 End: 02-20-2023 Ferritin [Mass/volume] in Serum or Plasma FERRITIN BLD Lab Routine Iron deficiency anemia due to chronic blood loss Expected: 02/23/2022 (Approximate), Expires: 02/20/2023 [facility] Work Phone: Comment on above: Expected: 02/23/2022 (Approximate), Expires: 02/20/2023 Start: 02-23-2022 End: 02-20-2023 Folate [Mass/volume] in Serum or Plasma FOLATE SERUM Lab Routine Iron deficiency anemia due to chronic blood loss Expected: 02/23/2022 (Approximate), Expires: 02/20/2023 [facility] Work Phone: Comment on above: Expected: 02/23/2022 (Approximate), Expires: 02/20/2023 Start: 02-23-2022 End: 02-20-2023 Iron and Iron binding capacity panel - Serum or Plasma IRON + TIBC Lab Routine Iron deficiency anemia due to chronic blood loss Expected: 02/23/2022 (Approximate), Expires: 02/20/2023 [facility] Work Phone: Comment on above: Expected: 02/23/2022 (Approximate), Expires: 02/20/2023 Start: 02-11-2022 Influenza vaccination INFLUENZA (#1) [facility] Start: 06-13-2021 DEPRESSION ASSESSMENT DEPRESSION ASS ESSMENT [facility] Start: 11-30-2020 COVID-19 VACCINE (3 - Booster for Moderna series) COVID-19 VACCINE (3 - Booster for Moderna series) [facility] Start: 08-27-2020 COVID-19 VACCINE (3 - Booster for Moderna series) COVID-19 VACCINE (3 - Booster for Moderna series) [facility] Start: 2017 HPV TESTING HPV TESTING [facility] Start: 01-11-2008 PAP TESTING PAP TESTING [facility] Start: 2006 Urine microalbumin profile DTAP,TDAP,TD (1 - Tdap) [facility] Start: 2005 HEPATITIS C SCREENING HEPATITIS C SC REENING [facility] Start: 2005 HIV SCREENING HIV SCREENING [facility] Start: 1999 Adult depression screening assessment DEPRESSION SCREENING [facility] Start: 1987 HEPATITIS B (1 of 3 - 3-dose series) HEPATITIS B (1 of 3 - 3-dose series) [facility] Patient Education [facility] Work Phone: Patient referral [facility] Work Phone: [facility] Immunizations Immunization Date Immunization Notes Care Provider Fa cility 03-13-2023 influenza, injectable, quadrivalent, preservative free Jennifer Duran Other [facility] 03-31-2021 influenza, seasonal, injectable Jennifer Duran Other [facility] 07-02-2020 COVID-19 Vaccine Moderna - Documentation Purposes Only Jennifer Duran Other [facility] 06-04-2020 COVID-19 Vaccine Moderna - Documentation Purposes Only Jennifer Duran Other [facility] 12-10-2008 measles, mumps and rubella virus vaccine [facility] NEGATED: Highlighted row has not occurred!03-23-2019 influenza, seasonal, injectable Patient Objection Jennifer Duran Other [facility] Other Payers Date Payer Category Payer Self-pay [id number] 2018 Unknown [id number] 1987 Unknown [id number] 2.16.84 [id number] 1987 Unknown [id number] 2.16.8 [id number] 1987 Unknown [id number] 2.16.8 [id number] 1987 Unknown [id number] 2.16.8 [id number] 1987 Unknown [id number] 2.16.8 [id number] 1987 Unknown [id number] 2.16.8 [id number] 1959 Unknown [id number] Unknown [id number] Unknown [id number] Unknown [id number] Unknown [id number] 2.16.8 [id number] Unknown [id number] 2.16.8 [id number] Unknown [id number] 2.16.8 [id number] Unknown [id number] 2.16.8 [id number] Unknown [id number] 2.16.8 [id number] Social History Date Type Detail Facility Start: 09-14-2021 End: 12-04-2021 Tobacco smoking status NHIS Never smoked tobacco (finding) [facility] Start: 1985 Sex Assigned At Female F [facility] Tobacco smoking status Never [facility] Sex Assigned At Female [employer] Other Start: 04-05-2018 End: 03-10-2022 Tobacco use and exposure Smokeless tobacco non-user [facility] Start: 10-27-2020 End: 03-10-2022 Alcohol intake Current drinker of alcohol (finding) [facility] Start: 04-05-2018 History SDOH Alcohol Comment socially [facility] Start: 1985 Sex Assigned At Not on file C [facility] Start: 02-06-2022 End: 04-09-2022 Exposure to SARS-CoV-2 (event) Not sure [facility] History of tobacco use Passive smoker [facility] Goals Date Patient Goal Desired Activity /State Functional Status Date Assessment Result Facility 07-31-2023 Functional Status N/A [facility] 04-24-2023 Functional Status N/A [facility] 03-29-2023 Functional status Patient at Baseline [facility] Work Phone: 12-04-2021 Functional Status N/A [facility] Mental Status Date Assessment Result Facility 03-29-2023 Cognitive function Cognitive Sta tus Patient at Baseline [facility] Work Phone: Clinical Notes 03-19-2019 to [...] Follow these instructions at home: Medicines Take ucfh-neh-drpbikh and prescription medicines only as told by [...] Watch your condition for any changes. Take yovr-hhh-admeuuk and prescription medicines only as told by [...] provider. Document Revised: 07/18/2020 Document Reviewed: 10/08/2019 [employer] Patient Education 2022 [employer]. Follow Up Care 07/31/2023 15:34:13 With:Follow-up with your AGENTS' RECORDS CLERK at [facility] Address:Unknown When:08/03/2023 17:52:19 Comments:Call the office of [...] weakness, or any new or worsening symptoms. [facility] 07-19-2023 Evaluation note Encounter Date Diagnosis Assessment Notes Jul, Anxiety (ICD-10 - F41.9) [facility] Other 02-06-2024 Evaluation note* Encounter Date Diagnosis [...] an appointment with her specialist through the [facility] and is scheduled at the end of this month (July) and is hoping to have a total hysterectomy. [facility] Other 12-26-2023 Evaluation note* Encounter Date Diagnosis Assessment Notes Treatment Notes Treatment Clinical Notes May, Cough (ICD-10 - R05.9) [facility] Other 12-04-2023 Evaluation note* Encounter Date Diagnosis Assessment Notes Treatment Notes Treatment Clinical Notes May, Anxiety (ICD-10 - F41.9) [facility] Other 11-12-2023 Hospital Discharge instructions Patient Education [...] Follow these instructions at home: Medicines Take tqbr-vjp-kqwpthy and prescription medicines only as told by [...] Watch your condition for any changes. Take tuwi-egk-pbhpgem and prescription medicines only as told by [...] provider. Document Revised: 07/18/2020 Document Reviewed: 10/08/2019 [employer] Patient Education 2022 [employer]. Follow Up Care 04/24/2023 13:13:55 With:YOUR OBGYN at [facility] Address:Unknown When:04/27/2023 15:50:22 Comments:Seek immediate medical [...] develop any new or worsening symptoms. 3. [facility]11-12-2023 Evaluation + Plan noteExtracted from: Title:ED Note Author:Jignesh Dumont DO Date:06/24/22 Abdominal pain, acute, left lower quadrant (R10.32: Left lower quadrant pain) Ordered: oxycodone, 5 mg = 1 cap(s), Oral, q6hr, PRN Pain 8-10, X 3 day(s), # 12 cap(s), Refills(s) 0, Pharmacy: [facility]/pharmacy #[id number], 165.1, cm, 04/24/23 13:32:00 EST, [...] Saline Lock Insert UA With Cult Reflex [facility]11-06-2023 Evaluation note* Encounter Date Diagnosis Assessment Notes [...] an appointment with her specialist at the [facility] in June (2023) which was the soonest they could get her in. She is hoping that they will at least remove the ovary but she is willing to have a total hysterectomy if they will do it. 1:13 PM - 1:20 PM [facility] Other 10-20-2023 Evaluation note* Encounter Date Diagnosis Assessment Notes Treatment Notes Treatment Clinical Notes Mar, Anxiety (ICD-10 - F41.9) [facility] Other 10-17-2023 Progress note Author Christi Aquino [facility] March 29, 2023 4:11pm Note Date/Time March 29, 2023 1 1:35am [facility] [address] [place] [id number] Progress Note Signed with Lester Patient: Livai Noyola MR#: [id number] : 1985 Acct:[id number] Age/Sex: 38 / F Adm Date: 3 Loc: 3T Room: [address] [place] [address] Type: ADM IN Attending Dr: Christi Aquino MD Copies to: ~ ADDENDUM1 Upon re-evaluation in the afternoon, patient feels better and would like to go home. Prescribed pain medications as needed as directed. Advised to continue to follow up with [facility] staff jig inspector. 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 jig inspector eval requested for further evaluation. Patient has complex jig inspector hx and been followed at [facility]. Afebrile here, no leukocytosis or obvious evidence of infectious process. Placed on Pain meds regimen IV and PO. Ongoing monitoringfor now. Documented By: Christi Aquino MD 03/29/23 11 32 Signed By: <Electronically signed by Christi Aquino MD> 03/29/23 [id number] [facility] Work Phone: [phone] History and physical note Author Megan Muniz [facility] March 29, 2023 7:29am Note Date/Time March 29, 2023 7 :29am [facility] [address] [place] [address] Hospitalist H&P Signed Patient: Livia Noyola MR#: [id number] : 1985 Acct:[id number] Age/Sex: 38 / F Adm Date: 3 Loc: 3T Room: 6I2978-8 Type: ADM IN Attending Dr: Christi Aquino [...] findings. The patient case was discussed with AGENTS' RECORDS CLERK, who was not convinced that left ovarian [...] Previous records in the computer system reviewed [facility] Medical History Anemia Endometriosis Surgical History History [...] % (Auto) 42.8 % (.) 03/29/23 01:40 [place] % (Auto) 7.3 % (.) 03/29/23 01:40 Eos % (Auto) 1.8 % (.) 03/29/23 01:40 Baso % (Auto) 1.3 % (.) 03/29/23 01:40 Nucleat RBC Rel Count 0.1 /100 WBC (0-0.5) 03/29/23 01:40 Neut # (Auto) 3.5 x10E3/uL (1.8-7.7) 03/29/23 01:40 Lymph # (Auto) 3.2 x10E3/uL (1.00-4.8) 03/29/23 01:40 [place] # (Auto) 0.6 x10E3/uL (0.0-0.8) 03/29/23 01:40 [...] pH 7.5 (5.0-9.0) 03/29/23 02:53 Ur Specific [place] 1.003 (1.001-1.030) 03/29/23 02:53 Urine Protein Negative [...] she does have tachycardia We will consult AGENTS' RECORDS CLERK Check lactic acid 2. Microcytic iron deficiency [...] <Electronically signed by Megan Muniz MD> 03/29/23728 [facility] Work Phone: [phone] 587-459708-02-2023 Evaluation note* Encounter Date Diagnosis Assessment Notes [...] relief. She would need to see an lawn specialist for this. She is agreeable to [...] an appointment to see Dr. Castillo again. [facility] Other 06-29-2023 Evaluation note* Encounter Date Diagnosis Assessment Notes Treatment Notes Treatment Clinical Notes Nov, Acute sinusitis (ICD-10 - J01.90) Nov, Cough (ICD-10 - R05.9) [facility] Other 05-01-2023 Evaluation note* Encounter Date Diagnosis [...] no discrepancies noted. Rx was called into [facility], spoke with Chad TOWNSEND, the Xanax 0.25 MG tablets are out of stock currently so her dose was increased to 0.5 MG and she was instructed to take 1/2 tablet q8-12 hours as needed. Only 12 tablets were called in. Pt voiced understanding when notified of this change. October, Other 3:17 PM - 3:23 PM [facility] Other 04-12-2023 Evaluation note* Encounter Date Diagnosis [...] Sep, Other 12:46 PM - 12:51 PM [facility] Other 01-30-2023 Evaluation note* Encounter Date Diagnosis Assessment Notes Treatment Notes Treatment Clinical Notes Jun, Anxiety (ICD-10 - F41.9) [facility] Other 01-30-2023 Evaluation note* Encounter Date Diagnosis [...] Side effects/risks/benefi ts of medication were reviewed. [facility] Other 12-21-2022 Evaluation note* Encounter Date Diagnosis [...] May, Other 3:27 PM - 3:32 PM [facility] Other 11-18-2022 Miscellaneous Notes* Telephone Encounter - Tabby Steele Ma - 04/30/2022 2:25 PM EST CMP if needed. Tabby Steele Ma [facility]* Encounter Date Diagnosis Assessment Notes Treatment Notes Treatment Clinical Notes Mar, Anxiety (ICD-10 - F41.9) [facility] Other 10-31-2022 Evaluation note* Encounter Date Diagnosis [...] done and then return to see her AGENTS' RECORDS CLERK [facility] because she feel she has another ovarian cyst. [facility] Other 10-28-2022 Miscellaneous Notes* Allied Health - [...] 2:21 PM PAGER/CONTACT #: documented in this encounterMer[facility]10-03-2022 Miscellaneous Notes* Telephone Encounter - MARY Narvaez - 03/15/2022 12:04 PM EDT Patient appears on the First Time Treatment List for a non-oncology treatment. No psychosocial assessment is indicated. JANNA Narvaez documented in this encounterMer[facility]09-28-2022 NoteHNO ID: [id number] Author: Gil Ni APRN.PIOTR Service: ? 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 [place] [facility] [place] 04[place] show hemoglobin of 11.6 [...] and removal ovarian cyst (more content not included)...[facility]09-28-2022 History of Present illness Narrative* Gil Ni APRN.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 - 03/10/2022 2:00 PM EDT Images from the original note were not included. 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 Recent laboratories [place] [facility] [place] 04, 2020 show hemoglobin of11.6 but [...] Hyperlipidemia Father Heart Father bypass surgery, stents, [place] Gil Ni APRN.CNP [facility] [place], [place] CC: Dr. Jennifer Duran [address] [place] [address] I spent a total of 30 minutes on the date of the service which included preparing to see the patient, dpls-pi-etpj patient care, completing clinical documentation, obtaining and/or reviewing separately obtained history, performing a medically appropriate examination, counseling and educating the pat ient/family/caregiver, ordering medications, tests, or procedures, independently interpreting results (not separately reported), and communicating results to the patient/family/caregiver. documented in this encounterMercy [facility] Hospital09-08-2022 Miscellaneous Notes* Telephone Encounter - Meaghan Ordonez - 02/18/2022 3:14 PM EDT Patient has an appt on 02/23. Would you like labs? documented in this encounterMercy [facility]09-06-2022 Evaluation note* Encounter Date Diagnosis Assessment Notes Treatment Notes Treatment Clinical Notes Feb, Iron deficiency anemia (ICD-10 - D50.9) Feb, Elevated liver enzymes (ICD-10 - R74.8) [facility] Other 07-28-2022 Evaluation note* Encounter Date Diagnosis Assessment Notes Treatment Notes Treatment Clinical Notes Dec, Anxiety (ICD-10 - F41.9) [facility] Other 06-24-2022 Hospital Discharge instructions Patient Education [...] develop this condition: Playing sports that include ukql-so-qcpq contact with others. Having a skin condition [...] Follow these instructions at home: Medicines Take zzbp-ylz-ndgqajy and prescription medicines only as told by [...] 06/20/2015 Document Revised: 07/10/2019 Document Reviewed: 06/21/2017 [employer] Patient Education 2020 [employer]. 12/04/2021 13:59:11 Sinusitis, Adult Sinusitis, Adult Sinusitis [...] at home: Medicines Take, use, or apply wayd-fnb-ppuxfaw and prescription medicines only as told by [...] and water are not available, use hand receiving dock checker. Do not smoke. Avoid being around people [...] 05/30/2006 Document Revised: 10/30/2018 Document Reviewed: 10/30/2018 [employer] Patient Education 2020 [employer]. 12/04/2021 13:59:10 BMI for Adults BMI for [...] height. This can be done either in [place] or metric measurements. Note that charts are available to help you find your BMI quickly and easily without having to do these calculations yourself. To calculate your BMI in [place] measurements, your health care provider will: [...] medical problems. BMI can be measured using [place] measurements or metric measurements. To interpret your [...] 02/08/2005 Document Revised: 05/12/2018 Document Reviewed: 04/12/2018 [employer] Patient Education 2019 [employer]. [facility] 05-06-2022 Evaluation note* Encounter Date [...] October, Other 8:28 AM - 8:35 AM [facility] Other 03-01-2022 Evaluation note* Encounter Date Diagnosis Assessment Notes Treatment Notes Treatment Clinical Notes Aug, Cough (ICD-10 - R05) [facility] Other 02-21-2022 Evaluation note* Encounter Date Diagnosis [...] Jul, Other 5:43 PM - 5:48 PM [facility] Other 12-06-2021 Evaluation note* Encounter Date Diagnosis [...] May, Other 4:25 PM - 4:38 PM [facility] Other 11-09-2021 Evaluation note* Encounter Date Diagnosis [...] R63.5) Her TSH is normal at 1.04. [facility] Other 10-07-2019 History general Narrative - Reported* Type Description Date Medical History endometriosis 2012 Medical History Echocardiogram [employer] [employer] Normal, ejection fraction 60-65% Medical History MRI Brain 03-21-19 [employer] [employer], Normal Medical History anxiety Medical History pneumonia 06/2019 Surgical History Cholecystectomy Surgical History gal bladder removed 2008 Surgical History ablation - endometri osis removed off ovaries Dr Lenzt 2012 Surgical History ovarian torsion 2014 Surgical History MRI pelvis 2017 Surgical History ovarian cyst removed 06/2018 Hospitalization History see above [facility] Other Consult note Author Geraldo Hatfield [facility] April 28, 2022 8:22am Note Date/Time April 28, 2022 8:22am [facility] [address] [place] [address] AGENTS' RECORDS CLERK Consult Note Signed Patient: Livia Noyola MR#: [id number] : 1985 Acct:[id number] Age/Sex: 37 / F Adm Date: 2 Loc: Room: [address] [place] [address] Type: ADM INOo Attending Dr: Kiko Saenz [...] Last Admin: 04/28/22 04:43 Dose: 10 ml VISITING PROFESSOR - Exam Physical Exam Vital signs: Temp 97.7 F 04/28/22 04:18 Pulse 95 H 04/28/22 04:18 Resp 16 04/28/22 04:18 BP 136/95 04/28/22 04:18 Pulse Ox 100 04/28/22 04:18 O2 Del Method Room Air 04/28/22 04:18 Constitutional Constitutional: no acute distress Routine Respiratory Exam Respiratory: Absent respiratory distress Routine Abdominal Exam Abdominal: Present soft, normoactive bowel sounds and tenderness; Absent reboundor guarding VISITING PROFESSOR - Results Laboratory Results - Last 48 hrs. 04/28/22 02:00: Urine Color Yellow, Urine Appearance Cloudy A, Urine pH 6.5, Ur Specific [place] 1.005, Urine Protein Negative, Urine Glucose (UA) [...] Creatinine Clear 132.36, Sodium 137, Potassium 3.7, Ndcdqugm484, Carbon Dioxide 21.1 L, Anion Gap 14.6, [...] % (Auto) 64.6, Lymph % (Auto) 28.9, [place] % (Auto) 4.5, Eos % (Auto) 1.0, Baso % (Auto) 1.0, Neut # (Auto) 5.1, Lymph # (Auto) 2.3, [place] # (Auto) 0.4, Eos # (Auto) 0.1, Baso # (Auto) 0.1, Nucleated RBC % (auto) 0.0, Platelet Estimate Normal, Plt Morphology Comment Normal, RBC Morphology N/A, Polychromasia Slight, Hypochromasia Slight, Poikilocytosis Moderate, Anisocytosis Marked, Tear Drop Cells Slight, Ovalocytes Moderate VISITING PROFESSOR - A/P (1) Intractable abdominal pain: Code(s): [...] And I suggested she follow-up with her c programmer at the [facility]. Code(s): N83.202 - Unspecified ovarian cyst, left side Status: Acute Documented By: GERALDO HATFIELD MD 04/28/22816 Signed By: <Electronically signed by MD GERALDO HATFIELD> 04/28/22821 [facility] Work Phone: Evaluation + Plan note No data available for this section [facility] Evaluation noteNo assessment information available [facility] Work Phone: Evaluation noteNo InformationNort [facility] Other Evaluation note* Diagnosis Iron deficiency anemia due to chronic blood loss- Primary Iron deficiency anemia secondary to blood loss (chronic) [facility] 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 [facility] Diagnosis 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 Cyst of left ovary Other and unspecified ovarian cyst [facility] Diagnosis 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 Cyst of left ovary Other and unspecified ovarian cyst [facility] Diagnosis Iron deficiency anemia due to chronic blood loss- Primary Iron deficiency anemia secondary to blood loss (chronic) [facility] Diagnosis Onset Date Resolution Status Abdominal pain acute Ovarian cyst acute [facility] Work Phone: Evaluation note* Diagnosis Onset Date Resolution Status Abdominal pain acute Endometriosis acute Ovarian cyst acute [facility] Work Phone: Evaluation note* Author Jennifer Duran [facility] Authored July 28, 2023 12:18pm The above note written by __ _Polly Collado____ acting as human recorder, note dictated by _Wilber .I performed the above HPI, ROS, and Examination. I formulated and dictated the treatment plan and was present for entire encounter. Jennifer Duran D.O. [facility] Work Phone: Hospital Discharge instructions Additional Instructions Please arrange a follow-up appointment with your [facility] c programmer.[facility] Work Phone: Hospital Discharge instructions Additional Instructions Take Motrin and Tylenol as needed for mild to moderate pain. Take oxycodone as prescribed for severe pain. Follow-up with Dr. Ness or Dr. Grayson in the office regarding further treatment with a GnRH antagonistReg[facility] Work Phone: Progress note No data available for this section [facility] Summary Purpose Family History No [...] bursitis of right hip (M70.61) Referral Organization [facility] Family Medicin e Ale Referring Provider First Name Jennifer Referring Provider Last Name Wilber Referring Provider Specialty Family Prac kasi Referred Organization [facility] Referred Provider Chad Luna II Referred Address [address] [place],[address] Referred Provider Specialty Orthopedic S urgery Referral Priority Routine General Notes Angelita Trevino 01/12/2023 03:51:47 PM > referral sent p2p. pt understands that she will be contacted to schedule this appt. Reason appt consult for e zia and treatment of continued cough since covid infection Diagnosis 1 Cough (R05) Referral Organization [facility] Family Medicin e [place] Referring Provider First Name Jennifer Referring Provider [...] section and content) DATE CREATED AUTHOR 08/08/2020 [facility] DATE CREATED AUTHOR AUTHOR'S ORGANIZ ATION 05/03/2022 [facility] DATE CREATED AUTHOR AUTHOR'S ORGANIZ ATION 10/19/2022 [facility] DATE CREATED AUTHOR AUTHOR'S ORGANIZ ATION 05/31/2023 [facility] DATE CREATED AUTHOR AUTHOR'S ORGANIZ ATION 06/23/2023 [facility] DATE CREATED AUTHOR AUTHOR'S ORGANIZ ATION 06/24/2023 [facility] DATE CREATED AUTHOR AUTHOR'S ORGANIZ ATION 09/06/2023 [facility] DATE CREATED AUTHOR AUTHOR'S ORGANIZ ATION 09/14/2023 [facility] Care Teams (unrecognized sec tion and [...] Active Amaury Barlow DO Emergency Provider Active Truck Trailer Final Inspector Relationship Specialty Start Date End Date Jennifer Duran, DO [address] [place] [address] PCP - General 11/27/07 Jennifer Duran, DO [address] [place] [address] Referring Family Practice 04/03/19 Avinash Velásquez MD [address] [place] [address] Referring AGENTS' RECORDS CLERK 11/30/21 Truck Trailer Final Inspector Relationship Specialty Start Date End Date Jennifer Duran, DO [address] [place] [address] PCP - General 11/27/07 Jennifer Duran, DO [address] [place] [address] Referring Family Medicine 04/03/19 Avinash Velásquez MD [address] [place] [address] Referring AGENTS' RECORDS CLERK 11/30/21 Truck Trailer Final Inspector Relationship Specialty Start Date End Date Jennifer Duran, DO [address] [place] [address] PCP - General 11/27/07 Jennifer Duran, DO [address] [place] [address] Referring Family Medicine 04/03/19 Avinash Velásquez MD [address] [facility] [address] [place] [address] Referring AGENTS' RECORDS CLERK 11/30/21 Truck Trailer Final Inspector Relationship Specialty Start Date End Date Jennifer Duran, DO [address] [place] [address] PCP - General 11/27/07 Jennifer Duran, DO [address] [place] [address] Referring Family Medicine 04/03/19 Avinash Velásquez MD [address] [facility] [address] [place] [address] Referring AGENTS' RECORDS CLERK 11/30/21 Truck Trailer Final Inspector Relationship Specialty Start Date End Date Jennifer Duran, DO [address] [place] [address] PCP - General 11/27/07 Jennifer Duran, DO [address] [place] [address] Referring Family Medicine 04/03/19 Avinash Velásquez MD [address] [place] [address] Referring AGENTS' RECORDS CLERK 11/30/21 Truck Trailer Final Inspector Relationship Specialty Start Date End Date Jennifer Duran, DO [address] [place] [address] PCP - General 11/27/07 Jennifer Duran, DO [address] [place] [address] Referring Family Medicine 04/03/19 Avinash Velásquez MD [address] [place] [address] Referring AGENTS' RECORDS CLERK 11/30/21 Team Status: Active Member Role Status Dates Jennifer Duran , DO Primary Care Provider Active Yevgeniy Cabrera Jr, MD Emergency Provider Active Kiko Saenz , Admit Provider, Attending Provider Active Truck Trailer Final Inspector Relationship Specialty Start Date End Date Jennifer Duran, DO [address] [place] [address] [facility] - General 11/27/07 Jennifer Duran, DO [address] [place] [address] Referring Family Medicine 04/03/19 Avinash Velásquez MD [address] [place] [address] Referring AGENTS' RECORDS CLERK 11/30/21 Team Status: Inactive Member Role Status [...] Childress , DO Emergency Provider Active Jennifer Duarn , DO Primary Care Provider Active Megan [...] SUCROSE INJECTION PER 1 MG Gil Ni, CATY.[facility] [address] [place] [address] Johny Treat [place] [address] [place] [address] Referral ID Status Reason Start Date Expiration Date V isits Requested Visits Authorized [id number] Authorized 03/10/2022 06/12/2022 99 99 Reason Comments Art Therapy Source Comments (unrecognize d section and content) In the event this informatio n is protected by the Federal Confidentiality of Alcohol and Drug Abuse Patient Records regulations: The Federal rules restrict any use of the information to criminally investigate or prosecute any alcohol or drug abuse patient.[facility] Hospital[facility] the event this information is protected by the Federal Confidentiality of Alcohol and Drug Abuse Patient Records regulations: The Federal rules restrict any use of the information to criminally investigate or prosecute any alcohol or drug abuse patient.[facility] HospitalIn the event this information is protected by the Federal Confidentiality of Alcohol and Drug Abuse Patient Records regulations: The Federal rules restrict any use of the information to criminally investigate or prosecute any alcohol or drug abuse patient.[facility] HospitalIn the event this information is protected by the Federal Confidentiality of Alcohol and Drug Abuse Patient Records regulations: The Federal rules restrict any use of the information to criminally investigate or prosecute any alcohol or drug abuse patient.[facility] HospitalIn the event this information is protected by the Federal Confidentiality of Alcohol and Drug Abuse Patient Records regulations: The Federal rules restrict any use of the information to criminally investigate or prosecute any alcohol or drug abuse patient.[facility] HospitalIn the event this information is protected by the Federal Confidentiality of Alcohol and Drug Abuse Patient Records regulations: The Federal rules restrict any use of the information to criminally investigate or prosecute any alcohol or drug abuse patient.[facility] HospitalIn the event this information is protected by the Federal Confidentiality of Alcohol and Drug Abuse Patient Records regulations: The Federal rules restrict any use of the information to criminally investigate or prosecute any alcohol or drug abuse patient.[facility] FOR RECORDS PERTAINING TO PATIENTS WHO [...] BE BASED ON THE PRIMARY CLINICAL RECORDS. [facility] [email or web address] [facility]. provides no warranty or guarantee of the accuracy or completeness of information in this document.
[2023-09-20 05:45] VITALS: BMI 31.3
[2023-09-20 05:46] VITALS: BP 145/92; PULSE 111; TEMP 36.8; O2SAT 97
[2023-09-20] MEDS: HYDROMORPHONE HCL 1 MG/ML CARTRIDGE 0.5 MG IVP (06:28)
[2023-09-20] MEDS: 0.9 % SODIUM CHLORIDE 1,000 ML 125 ML IV (06:28)
[2023-09-20] MEDS: KETOROLAC TROMETHAMINE 30 MG/ML VIAL IVP (06:28)
[2023-09-20 08:10] VITALS: PULSE 112; O2SAT 98
[2023-09-20 08:43] VITALS: BP 116/79; PULSE 106; TEMP 36.7; O2SAT 98
[2023-09-20] MEDS: HYDROMORPHONE HCL 0.5 MG/0.5 ML SYRINGE IV (09:39)
[2023-09-20 10:00] VITALS: PULSE 110; O2SAT 98
--- NOTE | 2023-09-20 11:43 | CM.NOTE ---
Rounds made with Dr. Shea RN will speak with Dr. Tucker regarding results of repeat CT scan for recommendations. Possibly advance diet today if Dr. Tucker in agreement and discharge to home if pt tolerates.
[2023-09-20 12:00] VITALS: PULSE 95
--- NOTE | 2023-09-20 12:15 | PM.HP ---
HPI H&P: HPI History of Present Illness Chief complaint: abd pain Narrative: 38 y/o female with a history of endometriosis and ovarian cysts presents to ER with abdominal pain. Reports pain typically lower abdomen and LLQ. Day admission developed pain in mid abdomen. Pain constant and worse with movement. Pain radiated to back and developed nausea but no emesis. Pain much worse and to ER. Labs normal and afebrile. CT abdomen showed intussusception of small bowel and ovarian cyst. Spoke with general surgery and admitted. Repeat CT with contrast this am negative for intussusception and again with cyst. Pain slightly better today. Opioid HPI Opioid Management Most Recent Opioid Data: Last Pain Scale 3 09/20/23 11:22 Last Pain Assessment 09/20/23 11:22 Last MAR Pain Assessment 09/20/23 11:16 Last ORT Total Score 2 09/20/23 05:45 Last ORT Risk Category Low Risk 09/20/23 05:45 Review of Systems ROS Constitutional Denies: fever, chills or fatigue Cardiovascular Denies: chest pain, palpitations or edema Respiratory Denies: shortness of breath, cough or wheezing Gastrointestinal Reports: abdominal pain and nausea; Denies: vomiting or diarrhea Genitourinary Denies: painful urination PFSH PFSH Medical History (Updated 09/20/23 @ 10:34 by Eren Shea MD) LLQ abdominal pain ?R10.32 - Left lower quadrant pain (ICD-10) Complex cyst of left ovary ?N83.292 - Other ovarian cyst, left side (ICD-10) Toothache ?K08.89 - Other specified disorders of teeth and supporting structures (ICD-10) Surgical History (Updated 09/20/23 @ 06:52 by Marichuy Daily RN) History of removal of cyst ?Z98.890 - Other specified postprocedural states (ICD-10) History of cholecystectomy ?Z90.49 - Acquired absence of other specified parts of digestive tract (ICD-10) Family History (Updated 09/20/23 @ 05:46 by Marichuy Daily, FER) Family/Other No problems noted. Father Family history of CHF (congestive heart failure) Family history of COPD (chronic obstructive pulmonary disease) Family history of diabetes mellitus Family history of hypertension Family history of myocardial infarction Mother Family history of hypertension Other Family history of cancer Social History (Updated 09/20/23 @ 05:47 by Marichuy Daily RN) Within the past year, how often did you have a drink containing alcohol: monthly or less Within the past year, how many standard drinks containing alcohol did you have on a typical day: 1 or 2 Within the past year, how often did you have six or more drinks on one occasion: never Total score: 0 Score interpretation: A score less than 3 is consistent with normal alcohol consumption. Smoking status: Never smoker Non-prescribed substance use: denies use Highest level of school completed/degree received: Associate degree: academic program Are you now , , , , never or living with a partner: In a typical week, how many times do you talk on the telephone with family, friends, or neighbors: 3 or more times per week How often do you get together with friends or relatives: 3 or more times per week Little interest or pleasure in doing things: not at all Feeling down, depressed, or hopeless: not at all Feel stressed/tense/nervous/anxious/difficulty sleeping: not at all Do you think of yourself as: straight/heterosexual Gender Identity: female Meds Home Medications and Allergies Home Medications ?Medication ?Instructions ?Recorded ?Confirmed ?Type alprazolam 0.25 mg tablet 0.25 mg PO Q8H PRN anxiety 09/20/23 09/20/23 History citalopram 20 mg tablet (Celexa) 20 mg PO DAILY 09/20/23 History Allergies Allergy/AdvReac Type Severity Reaction Status Date / Time morphine Allergy Severe Verified 09/19/23 23:30 prochlorperazine AdvReac Mild Verified 09/19/23 23:30 [From Compazine] Exam Constitutional Vital Signs, click to edit/add: Last Vital Signs Temp 98.1 F 09/20/23 08:43 Pulse 95 H 09/20/23 12:00 Resp 18 09/20/23 08:43 BP 116/79 09/20/23 08:43 Pulse Ox 98 09/20/23 10:00 O2 Del Method Room Air 09/20/23 08:43 Documenting provider has reviewed patient's vital signs: yes Common normals: no apparent distress, oriented x3 and alert HENMT Common normals: normocephalic Eye Common normals: PERRL and EOMs intact bilaterally Respiratory Common normals: normal respiratory effort and clear to auscultation bilaterally Cardio Common normals: regular rate, regular rhythm, no gallops, no murmurs and no rub GI Common normals: Normal to inspection, nondistended, normoactive bowel sounds present Palpation: tender (Mild TTP); no guarding Extremity Common normals: no pedal edema Results Labs Labs: Short CBC 09/19/23 Range/Units 23:38 WBC 8.2 (4.0-11.0) 10^3/uL Hgb 10.4 L (12.0-16.0) g/dL Hct 34.8 L (36.0-48.0) % Plt Count 574 H (150-450) 10^3/uL BMP 09/19/23 23:38 Sodium 141 Potassium 3.9 Chloride 105 Carbon Dioxide 24.0 BUN 5.0 L Creatinine 0.80 Glucose 100 Calcium 9.0 Liver Function 09/19/23 Range/Units 23:38 Total Bilirubin 0.2 (0.2-1.0) mg/dL AST 9 L (15-37) U/L ALT 19 (14-59) U/L Alkaline Phosphatase 84 (46-116) U/L Albumin 3.6 (3.4-5.0) g/dL Urine 09/19/23 Range/Units 23:58 Urine Color Lt. yellow (YELLOW) Urine Clarity Clear (CLEAR) Urine pH 7.0 (5.0-9.0) Ur Specific [place] 1.020 (1.005-1.025) Urine Protein Negative (NEG/TRACE) mg/dL Urine Glucose (UA) Negative (NEGATIVE) mg/dL Assessment and Plan Assessment and Plan (1) Intussusception intestine: (2) Abdominal pain: (3) Endometriosis: (4) Ovarian cyst: Plan Presented with pain and intussusception and repeat CT showed resolution. Pain improved. Start clear liquid diet and advance as tolerated. Use ultram PRN. If improved and tolerating oral likely home this afternoon.
[2023-09-20 14:00] VITALS: PULSE 106
--- NOTE | 2023-09-22 14:55 | CM.NOTE ---
Attempted to make Discharge follow up call without success.
--- NOTE | 2023-09-26 13:41 | CM.DCFOLLOWU ---
Person spoke with: Livia How are you feeling? Better How is your pain? Improved Did you understand your discharge instructions? Yes Do you have any questions about your discharge instructions? No Were you given any prescriptions at discharge? Yes Were you able to get your prescriptions filled? Yes Do you understand how to take your medications as ordered? Yes Do you have any questions about your follow up appointment and do you plan to keep your follow up appointment? No the only appt I do not have scheduled is with the surgeon. I am going to call to schedule. Plans on going to appt's. Is there anything else that you would like to discuss? No Questions/Comments/Concerns/Other:
== END 2023-09-20 15:35 | disposition home or self-care (01) ==
LOC: ER 09-20 03:47 → MS 09-20 05:39
PROVIDERS: Admitting Provider Family Medicine; Emergency Provider Internal Medicine; Visit Provider Family Medicine
DX: K56.1 Intussusception (principal); N83.202 Unspecified ovarian cyst, left side; N83.201 Unspecified ovarian cyst, right side; N80.9 Endometriosis, unspecified; Z90.49 Acquired absence of other specified parts of digestive tract; R10.9 Unspecified abdominal pain; Z98.890 Other specified postprocedural states; Z79.899 Other long term (current) drug therapy
CPT/HCPCS: 36415; 74176; 74177; 80053; 81003; 83605; 83690; 84484; 84703; 85025; 96374; 96375; 96376; 99285; G0378; J1170; Q9967

== ENCOUNTER 2023-09-25 22:24 | Emergency (ER) | payer BC, SELFPAY ==
[2023-09-25 22:30] VITALS: BP 154/100; PULSE 98; TEMP 36.6; O2SAT 98; BMI 30.8
--- OUTSIDE RECORDS SUMMARY | 2023-09-25 22:34 | XMS_ITS | CCD ---
Author Organization [facility] Care Team Providers Care Assignment Officer Name Role Phone DO Jennifer Duran Primary Care Provider DO Augustus Santiago Attending Provider [phone] DO Amaury Barlow Emergency Provider Jennifer Duran Primary Care Physician [phone] Jennifer Duran Unavailable DO Jennifer Duran Primary Care Provider DO Jennifer Duran Attending Provider Jennifer Duran DO Primary Care Provider Jennifer Duran DO Unavailable [phone] Didier BARNETT, Penola P Unavailable [phone] Jennifer Duran DO Primary Care Provider [phone] Jennifer Duran DO Unavailable DO Jennifer Duran Primary Care Provider DO Jennifer Duran Attending Provider MD Yevgeniy Cabrera Jr Emergency Provider DO Kiko Saenz Admit Provider DO Kiko Saenz Attending Provider Jennifer Duran DO Primary Care Provider Jennifer Duran DO Unavailable [phone] Didier BARNETT, Penola P Unavailable JENNIFER DURAN [...] Unavailable DO Jennifer Duran Primary Care Provider [phone] Manuel, DO Elier Leos Emergency Provider [phone] DO Ming Childress Emergency Provider MD Megan Garcia Admit Provider MD Megan Muniz Attending Provider DO Kiko Saenz Other Provider MD Christi Aquino Attending Provider [phone] DO Jaime Aleman Attending Provider [facility] Primary Care Physician Unavailab le DO Jennifer Duran Primary Care Provider DO Elier Jackson Emergency Provider DO Jaime Aleman Attending Provider DO Ming Childress Emergency Provider UnaMD Megan Gongora Admit Provider [phone] MD Christi Aquino Attending Provider [phone] ViscDO Kiko landeros Other Provider NO FAMILY, [...] Allergy 9 Other: See Comments, Itching (finding) [facility] (18 sources) Atenolol Drug Allergy 3 Dr. Cantu/ Justin [facility] (6 sources) seasoninig Propensity to adverse reactions Unknown [facility] Other (1 source) Morphine Drug Allergy 3 [facility] (12 sources) Seasonal allergy Propensity to adverse reactions 3 Unknown [facility] (1 source) Morphine Drug Allergy 3 [facility] (2 sources) Prochlorperazin e; Translations: [prochlorperazi ne] Drug Allergy Feeling nervous (finding) [facility] (1 source) No Known Medication Allergies; Translations: [No Known Medication Allergies] Propensity to adverse reactions (disorder) [facility] Repository Medications Current Medications Medication Drug [...] day(s), # 250 mL, Refills(s) 0, Pharmacy: [id number], 166, cm, 12/04/21 12:54:00 EDT, Height/Length Dosing, [...] day(s), # 12 cap(s), Refills(s) 0, Pharmacy: [id number], 165.1, cm, 04/24/23 13:32:00 EST, Height/Length [...] 13September 14, 2021 April 28, 2022 12:50am [id number] 200 actuat albuterol 0.09 mg/actuat metered dose [...] 30 mg oral tablet (7 sources) Uncompetitive V-jtoved-M-asparta te Receptor Antagonist, Sigma-1 Agonist Start: 08-11-2021 take 1 tablet by mouth every six hours as needed [place] DMT 30-30 MG 1 tablet Orally q6 [...] Basophils (Bld) [#/Vol] 0.1 10*3/uL Normal 0.0-0.2 [facility] Comment on above: Performed By: #### C BCWD #### [facility] [address] [place] [address] Basophils/100 WBC (Bld) 0.6 % Normal [facility] Comment on above: Performed By: #### C BCWD #### [facility] [address] [facility] [address] Eosinophils (Bld) [#/Vol] 0.1 10*3/uL Normal 0.0-0.7 [facility] Comment on above: Performed By: #### C BCWD #### [facility] [address] [place] [address] Eosinophils/100 WBC (Bld) 0.6 % Normal [facility] Comment on above: Performed By: #### C BCWD #### [facility] [address] [place] [address] Erythrocyte distribution width (RBC) [Ratio] 15.9 % Critically high 11.5-14.5 [facility] Comment on above: Performed By: #### C BCWD #### [facility] [address] [place] [address] Hematocrit (Bld) [Volume fraction] 34.5 % Low 37.0-47.0 [facility] Comment on above: Performed By: #### C BCWD #### [facility] [address] [place] [address] Hemoglobin (Bld) [Mass/Vol] 10.1 g/dL Low 12.0-16.0 [facility] Comment on above: Performed By: #### C BCWD #### [facility] [address] [place] [address] Lymphocytes (Bld) [#/Vol] 4.4 10*3/uL Normal 1.0-4.8 [facility] Comment on above: Performed By: #### C BCWD #### [facility] [address] [place] [address] Lymphocytes/100 WBC (Bld) 54.2 % Normal [facility] Comment on above: Performed By: #### C BCWD #### [facility] [address] [place] [address] MCH (RBC) [Entitic mass] 22.9 pg Low 27.0-31.3 [facility] Comment on above: Performed By: #### C BCWD #### [facility] [address] [place] [address] MCHC 29.3 % Low 33.0-37.0 [facility] Comment on above: Performed By: #### C BCWD #### [facility] [address] [place] [address] MCV (RBC) [Entitic vol] 78.2 fL Low 79.4-94.8 [facility] Comment on above: Performed By: #### C BCWD #### [facility] [address] [place] [address] Monocytes (Bld) [#/Vol] 0.5 10*3/uL Normal 0.2-0.8 [facility] Comment on above: Performed By: #### C BCWD #### [facility] [address] [place] [address] Monocytes/100 WBC (Bld) 6.5 % Normal [facility] Comment on above: Performed By: #### C BCWD #### [facility] [address] [place] [address] Neutrophils (Bld) [#/Vol] 3.1 10*3/uL Normal 1.4-6.5 [facility] Comment on above: Performed By: #### C BCWD #### [facility] [address] [place] [address] Neutrophils/100 WBC (Bld) 37.9 % Normal [facility] Comment on above: Performed By: #### C BCWD #### [facility] [address] [place] [address] Platelets (Bld) [#/Vol] 482 10*3/uL Critically high 130-40 0 [facility] Comment on above: Performed By: #### C BCWD #### [facility] [address] [place] [address] RBC (Bld) [#/Vol] 4.41 10*6/uL Normal 4.20-5.40 [facility] Comment on above: Performed By: #### C BCWD #### [facility] [address] [place] [address] WBC (Bld) [#/Vol] 8.1 10*3/uL Normal 4.8-10.8 [facility] Comment on above: Performed By: #### C BCWD #### [facility] [address] [place] [address] Comprehensive Metabolic Pane rey 09-06-2023 Albumin [Mass/Vol] 4.4 g/dL Normal 3.5-4.6 [facility] Comment on above: Performed By: #### C MP #### [facility] [address] [place] [address] ALP [Catalytic activity/Vol] 72 U/L Normal 40-130 [facility] Comment on above: Performed By: #### C MP #### [facility] [address] [place] [address] ALT [Catalytic activity/Vol] 15 U/L Normal 0-33 [facility] Comment on above: Performed By: #### C MP #### [facility] [address] [place] [address] Anion gap [Moles/Vol] 11 mmol/L Normal 9-15 [facility] Comment on above: Performed By: #### C MP #### [facility] [address] [place] [address] AST [Catalytic activity/Vol] 18 U/L Normal 0-35 [facility] Comment on above: Performed By: #### C MP #### [facility] [address] [place] [address] Bilirubin [Mass/Vol] 0.4 mg/dL Normal 0.2-0.7 [facility] Comment on above: Performed By: #### C MP #### [facility] [address] [place] [address] Calcium [Mass/Vol] 9.5 mg/dL Normal 8.5-9.9 [facility] Comment on above: Performed By: #### C MP #### [facility] [address] [place] [address] Chloride [Moles/Vol] 102 mmol/L Normal 95-107 [facility] Comment on above: Performed By: #### C MP #### [facility] [address] [place] [address] CO2 [Moles/Vol] 24 mmol/L Normal 20-31 [facility] Comment on above: Performed By: #### C MP #### [facility] [address] [place] [address] Creatinine [Mass/Vol] 0.59 mg/dL Normal 0.50-0.90 [facility] Comment on above: Performed By: #### C MP #### [facility] [address] [place] [address] GFR >90.0 Normal >60 [facility] Comment on above: Result Comment: Meghan atric [...] secretion. Performed By: #### C MP #### [facility] [address] [place] [address] Globulin (S) [Mass/Vol] 3.5 g/dL Normal 2.3-3.5 [facility] Comment on above: Performed By: #### C MP #### [facility] [address] [place] [address] Glucose [Mass/Vol] 98 mg/dL Normal 70-99 [facility] Comment on above: Performed By: #### C MP #### [facility] [address] [place] [address] Potassium [Moles/Vol] 3.2 mmol/L Low 3.4-4.9 [facility] Comment on above: Performed By: #### C MP #### [facility] [address] [place] [address] Protein [Mass/Vol] 7.9 g/dL Normal 6.3-8.0 [facility] Comment on above: Performed By: #### C MP #### [facility] [address] [place] [address] Sodium [Moles/Vol] 137 mmol/L Normal 135-144 [facility] Comment on above: Performed By: #### C MP #### [facility] [address] [place] [address] Urea nitrogen [Mass/Vol] 4 mg/dL Low 6-20 [facility] Comment on above: Performed By: #### C MP #### [facility] [address] [place] [address] US NON OB TRANSVAGINALon US NON OB [...] Jessy Campos MD 09/06/23 Final result Normal [facility] US PELVIS COMPLETEon 024 US PELVIS COMPLETE [...] Jessy Campos MD 09/06/23 Final result Normal [facility] Urinalysis, reflex to cultur silvino 09-06-2023 Urine Reflexed to Culture Not Indicated Normal [facility] Comment on above: Performed By: #### U AR #### [facility] [address] [place] [address] Bilirubin Ql (U) Negative Normal Negative [facility] Comment on above: Performed By: #### U AR #### [facility] [address] [place] [address] Clarity (U) Clear Normal Clear [facility] Comment on above: Performed By: #### U AR #### [facility] [address] [place] [address] Color (U) Yellow Normal Straw/Dukes [facility] Comment on above: Performed By: #### U AR #### [facility] [address] [place] [address] Glucose Ql (U) >=1000 Abnormal Negative [facility] Comment on above: Performed By: #### U AR #### [facility] [address] [place] [address] Hemoglobin Ql (U) TRACE Abnormal Negative [facility] Comment on above: Performed By: #### U AR #### [facility] [address] [place] [address] Ketones Ql (U) >=80 Abnormal Negative [facility] Comment on above: Performed By: #### U AR #### [facility] [address] [place] [address] Leukocyte esterase Test strip Ql (U) Negative Normal Negative [facility] Comment on above: Performed By: #### U AR #### [facility] [address] [place] [address] Nitrite Ql (U) Negative Normal Negative [facility] Comment on above: Performed By: #### U AR #### [facility] [address] [place] [address] pH (U) 5.0 [pH] Normal 5.0-9.0 [facility] Comment on above: Performed By: #### U AR #### [facility] [address] [place] [address] Protein Ql (U) TRACE Abnormal Negative [facility] Comment on above: Performed By: #### U AR #### [facility] [address] [place] [address] Specific gravity (U) [Rel density] 1.025 Normal 1.005-1.03 [facility] Comment on above: Performed By: #### U AR #### [facility] [address] [place] [address] Urobilinogen Qn (U) 0.2 {Ivone'U}/dL Normal < 2.0 [facility] Comment on above: Performed By: #### U AR #### [facility] [address] [place] [address] Urine Microscopicon 09-06-19 24 Bacteria LM.HPF (Urine sed) [#/Area] Negative Normal Negative [facility] Comment on above: Performed By: #### U ARELIS #### [facility] [address] [place] [address] Urine Epithelial Cells Auto 0-2 Normal 0-5 [facility] Comment on above: Performed By: #### U ARELIS #### [facility] [address] [place] [address] Urine Hyaline Casts Auto 0-1 Normal 0-5 [facility] Comment on above: Performed By: #### U ARELIS #### [facility] [address] [place] [address] Urine RBC Auto 3-5 Abnormal 0-5 [facility] Comment on above: Performed By: #### U ARELIS #### [facility] [address] [place] [address] Urine WBC Auto 0-2 Normal 0-5 [facility] Comment on above: Performed By: #### U ARELIS #### [facility] [address] [place] [address] ED Note-Physicianon 08-01-19 24 ED Note-Physician Basic [...] endometritis for which she follows with a TEAM LEADER SURGERY at the [facility]. Review of Systems A 10 [...] for discharge home and follow-up with her TEAM LEADER SURGERY. Short course of pain medication as prescribed after an OARRS review for this patient. Return precautions were discussed. All questions were answered. The patient was discharged home for outpatient follow-up for her acute on chronic pain. Assessment/Plan Abdominal pain, acute (R10.9: Unspecified abdominal pain) Ordered: acetaminophen-oxycod one, 1 tab(s), Oral, q6hr Pain 8-10 for 3 day(s), 12 tab(s), Refill(s) 0, [facility], 165.1, cm, 07/31/23 15:42:00 EST, Height/Length [...] Discharge D (more content not included)... Normal [facility] Comment on above: Result Comment: Elec tronically Signed By: Jignesh Dumont DO\.br\Date and Time Signed: 08/01/23 09:21 EST B hCG Qualon 07-31-2023 Beta HCG ( test) Ql Negative Normal [facility] Comment on above: Performed By: #### 2 458083, 6939773, 63725601, 6122920, 93869789 ####[facility] [address] [place] [address] BMPon 07-31-2023 Anion gap [Moles/Vol] 15 mmol/L Normal 6-16 [facility] Comment on above: Performed By: #### 2 914339, 4534226, 16968506, 0077070, 83593581 ####[facility] [address] [place] [address] BUN/Creat Ratio 4 No Units Low 10-20 [facility] Comment on above: Performed By: #### 2 918103, 7527751, 70619405, 9570909, 60201427 ####[facility] [address] [place] [address] Calcium [Mass/Vol] 9.6 mg/dL Normal 8.9-11.1 [facility] Comment on above: Performed By: #### 2 221063, 3622763, 95623559, 2702169, 51676535 ####[facility] [address] [place] [address] Chloride [Moles/Vol] 106 mmol/L Normal 101-111 [facility] Comment on above: Performed By: #### 2 670933, 3378892, 46823704, 7185292, 78588103 ####[facility] [address] [place] [address] CO2 [Moles/Vol] 21 mmol/L Normal 21-31 [facility] Comment on above: Performed By: #### 2 053157, 6270891, 31727679, 0274122, 30209232 ####[facility] [address] [place] [address] Creatinine [Mass/Vol] 0.9 mg/dL Normal 0.5-1.3 [facility] Comment on above: Performed By: #### 2 411497, 8463636, 18269965, 4232208, 36827448 ####[facility] [address] [place] [address] Glucose [Mass/Vol] 109 mg/dL Normal 55-199 [facility] Comment on above: Performed By: #### 2 647755, 4969827, 75841141, 8329640, 77457031 ####[facility] [address] [place] [address] Potassium [Moles/Vol] 3.6 mmol/L Normal 3.5-5.3 [facility] Comment on above: Performed By: #### 2 017668, 6295224, 72316335, 0988744, 21970221 ####[facility] [address] [place] [address] Sodium [Moles/Vol] 138 mmol/L Normal 135-145 [facility] Comment on above: Performed By: #### 2 154932, 3542103, 86906001, 8474217, 37814470 ####[facility] [address] [place] [address] Urea nitrogen [Mass/Vol] mg/dL Low 5-21 [facility] Comment on above: Performed By: #### 2 666643, 6149241, 11373553, 5183884, 38245367 ####[address] [address] CBC w/ Auto Diffon 4 Anisocytosis Ql (Bld) PRESENT Invalid Interpretation Code [facility] Comment on above: Performed By: #### 2 374998, 2429904, 78861676, 3697514, 22792464 ####[address] [address] Microcyte PRESENT Invalid Interpretation Code [facility] Comment on above: Performed By: #### 2 245438, 2564207, 88485774, 4883994, 60133474 ####[address] [address] RBC morphology finding Nom (Bld) SEE MORPHOLOGY Invalid Interpretation Code [facility] Comment on above: Performed By: #### 2 025533, 0220345, 63107252, 1971427, 22292829 ####[address] [place] [address] Basophil Absolute 0.1 E9/L Normal 0.0-0.2 [facility] Comment on above: Performed By: #### 2 536907, 1578372, 51338724, 5265097, 36642277 ####[facility] [address] [place] [address] Basophils/100 WBC (Bld) 1.1 % Normal 0.0-2.[address] [facility] Comment on above: Performed By: #### 2 466069, 6948199, 78932419, 9254801, 43188511 ####[address] [address] Eos Absolute 0.0 E9/L Normal 0.0-0.5 [facility] Comment on above: Performed By: #### 2 603380, 2609272, 24394971, 3695313, 88258016 ####[address] [address] Eosinophils/100 WBC (Bld) 0.2 % Normal 0.0-8.0 [facility] Comment on above: Performed By: #### 2 624494, 6829221, 49275194, 8609005, 00412616 ####[address] [address] Erythrocyte distribution width (RBC) [Ratio] 16.5 % High 10.9-14.2 [facility] Comment on above: Performed By: #### 2 181343, 9646177, 33499108, 0797242, 46146639 ####[address] [address] Hematocrit (Bld) [Volume fraction] 36.0 % Normal 34.0-46.0 [facility] Comment on above: Performed By: #### 2 536887, 1327200, 11539907, 7042594, 39004353 ####[address] [address] Hemoglobin (Bld) [Mass/Vol] 11.4 g/dL Low 12.0-16.0 [facility] Comment on above: Performed By: #### 2 876617, 1178171, 32957108, 0957016, 47012331 ####[address] [address] Lymph Absolute 2.2 E9/L Normal 1.0-4.0 [facility] Comment on above: Performed By: #### 2 631742, 0612304, 65248869, 1961896, 74262680 ####[facility] [address] [place] [address] Lymphocytes/100 WBC (Bld) 25.3 % Normal 14.0-50.0 [facility] Comment on above: Performed By: #### 2 827643, 1398926, 67126614, 3927627, 15237109 ####[facility] [address] [place] [address] MCH (RBC) [Entitic mass] 24.0 pg Low 27.0-34.0 [facility] Comment on above: Performed By: #### 2 608687, 0488093, 13314960, 0999068, 43952931 ####[address] [address] MCHC (RBC) [Mass/Vol] 31.9 g/dL Normal 31.4-36.0 [facility] Comment on above: Performed By: #### 2 568809, 8467277, 15291395, 8725831, 96086939 ####[address] [address] MCV (RBC) [Entitic vol] 75.2 fL Low 80.0-100.0 [facility] Comment on above: Performed By: #### 2 785875, 0026088, 99759864, 6421442, 75343517 ####[facility] [address] [place] [address] [place]idge Absolute 0.5 E9/L Normal 0.2-1.0 [facility] Comment on above: Performed By: #### 2 995468, 7716313, 73175192, 2210657, 73734777 ####[address] [address] Monocytes/100 WBC (Bld) 5.4 % Normal 4.0-14.0 [facility] Comment on above: Performed By: #### 2 928550, 1112884, 53515843, 3449394, 42660122 ####[facility] [address] [place] [address] Neutro Absolute 5.9 E9/L Normal 2.0-7.5 [facility] Comment on above: Performed By: #### 2 316073, 7147530, 14581355, 9783647, 89438921 ####[facility] [address] [place] [address] Neutro Auto 68.0 % Normal 36.0-75.0 [facility] Comment on above: Performed By: #### 2 800556, 6995350, 30098156, 1681617, 78692638 ####[address] [address] Platelet 612.0 E9/L High 150.0-500.0 [facility] Comment on above: Performed By: #### 2 691385, 5991161, 80013029, 4854684, 65030819 ####[address] [address] Platelet mean volume (Bld) [Entitic vol] 7.4 fL Normal 6.4-10.8 [facility] Comment on above: Performed By: #### 2 475100, 0957996, 35171179, 5069406, 19758077 ####[address] [place] [address] RBC 4.7 E12/L Normal 4.3-5.9 [facility] Comment on above: Performed By: #### 2 011328, 1614258, 74987888, 4576830, 45872464 ####[address] [place] [address] WBC 8.6 E9/L Normal 4.0-11.0 [facility] Comment on above: Performed By: #### 2 586371, 7270960, 76700672, 5174437, 74141282 ####[facility] [address] [place] [address] CHEMISTRYOrdered By: SYSTEM SYSTEM on 07-31-2023 Albumin [...] Oral contrast amount in ml's: 0 Normal [facility] Discharge Instructionson Discharge Instructions [id number] 020 [id number] #[id number] Normal [facility] ED Clinical Summaryon 2023 ED Clinical Summary [place] [id number] ED Clinical Summary Person Information Name: [facility] Age: 38 Years : 1985 Sex: Female Language: Sammarinese PCP: NONE, XXXX Marital Status: Visit Id: [...] 07/31/2023 18:03:59 ADDRESS: [address] [place] [id number] PHYS DOC NOTES: MEDICAL INFORMATION: Prescriptions Given: New Medications [facility], [address] [place], [place] [id number], [phone] acetaminophen-oxycod one (Percocet 5 mg-325 mg oral [...] up: With: Address: When: Follow-up with your TEAM LEADER SURGERY at [facility] In 3 days 08/03/2023 Comments: [...] worsening symptoms. DIAGNOSIS: Abdominal pain, acute Normal [facility] ED Patient Education Noteon 07-31-2023 ED [...] these instructions at home: Medicines ? Take jbrm-ezk-ybmhgcy and prescription medicines only as told by [...] your condition for any changes. ? Take yluy-zfx-birulpa and prescription medicines only as told by [...] Reviewed: 10/08/2019 Else[employer] Patient Education ? 2022 [employer] Normal [facility] ED Patient Summaryon 024 ED Patient Summary [address] [address] Patient Discharge Instructions Person Information Name: LIVIA NOYOLA Age: 38 Years MRN: [id number] Arrival Date: 07/31/2023 15:33:06 Discharge Diagnosis: Abdominal pain, acute Primary Care Physician: NONE, XXXX Provider Information Primary Provider: Jignesh Dumont DO Advanced Diesel Locomotive Engineer:Shazia The exam and treatment you received in the Emergency Department were for an urgent problem and are not intended as complete care. It is important that you follow up with a doctor, nurse practitioner, or physician?s administrative support assistant for ongoing care. If your symptoms [...] Instructions: With: Address: When: Follow-up with your TEAM LEADER SURGERY at [facility] In 3 days 08/03/2023 Comments: [...] opioids can be used to help relieve wpcawqwz-ei-mmdbrq pain and are often prescribed following a [...] and al (more content not included)... Normal [facility] HEMATOLOGYOrdered By: Sloane Mazariegos on 07-31-2023 [...] Low 80.0 - 100.0 fL Remisol Heme [place] Absolute 0.5 E9/L Normal 0.2 - 1.0 [...] 07-31-2023 Albumin [Mass/Vol] 4.6 g/dL Normal 3.3-5.0 [facility] Comment on above: Performed By: #### 2 536378, 3249281, 69333874, 2386651, 76401282 ####[facility] [address] [place] [address] Albumin/Globulin [Mass ratio] 1.4 {ratio} Normal 1.1-2.2 [facility] Comment on above: Performed By: #### 2 691372, 4550833, 50328458, 6330713, 11659317 ####[facility] [address] [place] [address] Alk Phos 73 Int._Unit/L Normal 21-98 [facility] Comment on above: Performed By: #### 2 664401, 9636281, 29229509, 4653280, 53182250 ####[facility] [address] [place] [address] ALT 10 Int._Unit/L Normal 6-46 [facility] Comment on above: Performed By: #### 2 438850, 7598988, 13633478, 5933289, 55145983 ####[facility] [address] [place] [address] AST 11 Int._Unit/L Normal 5-43 [facility] Comment on above: Performed By: #### 2 019809, 7836544, 20049809, 2768087, 14667351 ####[facility] [address] [place] [address] Bili Direct 0.1 mg/dL Normal 0.0-0.4 [facility] Comment on above: Performed By: #### 2 785826, 8211929, 62667406, 3700414, 39683736 ####[facility] [address] [place] [address] Bili Indirect 0.4 mg/dL Normal 0.1-0.9 [facility] Comment on above: Performed By: #### 2 439480, 3248585, 01217094, 2016170, 85679042 ####[facility] [address] [place] [address] Bili Total 0.5 mg/dL Normal 0.0-1.1 [facility] Comment on above: Performed By: #### 2 593022, 7994163, 57797845, 1734553, 67391101 ####[facility] [address] [place] [address] Globulin (S) [Mass/Vol] 3.3 g/dL Normal 1.4-4.0 [facility] Comment on above: Performed By: #### 2 808536, 6956884, 21278295, 0401586, 07451826 ####[facility] [address] [place] [address] Protein [Mass/Vol] 7.9 g/dL High 6.0-7.8 [facility] Comment on above: Performed By: #### 2 848071, 2531811, 28254886, 0939616, 08297436 ####[facility] [address] [place] [address] Monitor Recordon 07-31-2023 Monitor Record [id number] 2#1.00TIFF Normal [facility] SEROLOGYOrdered By: Felicity patel on 07-31-2023 Beta HCG ( test) Ql Negative (07/31/23 4:20 PM) Normal [facility] Man Sero UA With Cult Reflexon 2023 Bacteria LM Ql (Urine sed) TRACE Normal Trace [facility] Comment on above: Performed By: #### 1 6101411 ####[facility] [address] [place] [address] Bilirubin Ql (U) Negative Normal Negative [facility] Comment on above: Performed By: #### 1 6612917 ####[facility] [address] [place] [address] Clarity (U) CLEAR Normal Clear [facility] Comment on above: Performed By: #### 1 9189929 ####[facility] [address] [place] [address] Color (U) YELLOW Normal Yellow [facility] Comment on above: Performed By: #### 1 4809697 ####[address] [address] Epithelial cells.squamous LM.HPF (Urine sed) [#/Area] 0-2 Normal 0-2 [facility] Comment on above: Performed By: #### 1 0241800 ####[address] [address] Glucose Test strip (U) [Mass/Vol] Negative Normal Negative [facility] Comment on above: Performed By: #### 1 8572508 ####[address] [address] Hemoglobin Ql (U) Negative Normal Negative [facility] Comment on above: Performed By: #### 1 2406057 ####[address] [address] Ketones (U) [Mass/Vol] 1+ Abnormal Negative Fi [facility] Comment on above: Performed By: #### 1 4759585 ####[address] [address] Igo.plasma/Igo. RBC (Bld) [Mass ratio] 0-3 Normal 0-3 [facility] Comment on above: Performed By: #### 1 8390970 ####[facility] [address] [place] [address] Mucus Ql (Urine sed) TRACE Normal [facility] Comment on above: Performed By: #### 1 9068305 ####[address] [place] [address] Nitrite Ql (U) Negative Normal Negative [facility] Comment on above: Performed By: #### 1 8097493 ####[address] [place] [address] pH (U) 8.5 [pH] Invalid Interpretation Code 5.0-9.0 [facility] Comment on above: Performed By: #### 1 1444471 ####[facility] [address] [place] [address] Protein (U) [Mass/Vol] Negative Normal Negative Fi [facility] Comment on above: Performed By: #### 1 5567291 ####[facility] [address] [place] [address] Specific gravity (U) [Rel density] 1.015 Invalid Interpretation Code 1.005-1.030 [facility] Comment on above: Performed By: #### 1 5624784 ####[facility] [address] [place] [address] Type of Urine collection method Clean Catch Normal [facility] Comment on above: Performed By: #### 1 6241191 ####[address] [address] Urobilinogen Qn (U) 0.2 {Ivone'U}/dL Normal 0.0-1.0 [facility] Comment on above: Performed By: #### 1 6740956 ####[facility] [address] [place] [address] WBC Auto Ql (U) Negative Normal Negative [facility] Comment on above: Performed By: #### 1 3100425 ####[facility] [address] [place] [address] WBC LM.HPF (Urine sed) [#/Area] 0-5 Normal 0-5 [facility] Comment on above: Performed By: #### 1 9541447 ####[facility] [address] [place] [address] URINALYSISOrdered By: Felicity George on 07-31-2023 Bacteria [...] Interpretation Code Negative [facility] UA Auto SS Igo.plasma/Igo. RBC (Bld) [Mass ratio] 0-3 /HPF Normal [...] [facility] UA Auto SS Urobilinogen Qn (U) 0.0349605 {Ivone'U}/dL Normal 0.0 - 1.0 EU/dL [facility] UA Auto SS WBC Auto Ql (U) Negative (07/31/23 4:30 PM) Normal Negative [facility] UA Auto SS WBC LM.HPF (Urine sed) [#/Area] 0-5 /HPF Normal 0-5/HPF [facility] UA Auto SS eGFRon 07-31-2023 eGFR 85 mL/min/1.73 m2 Normal >=59 [facility] Comment on above: Order Comment: Order added by Discern Expert. Performed By: #### 2 272724, 4514048, 78650649, 1564145, 67007397 ####[facility] [address] [place] [address] ED NOTEon 06-23-2023 ED NOTE HNO ID: [id number] Author: DENNIS CAMARGO RN Service: ? Author Type: Registered Nurse Type: ED Notes Filed: 06/22/2023 22:17 Note Text: Patient given verbal and written D/C instructions. Medications and follow up care discussed. Instructed to return to ED if conditions and symptoms persist or worsen. All questions addressed and answered pt verbalized understanding. Pt discharged to [facility], [facility] noted. Normal [facility] HAV IgM Ser Qlon 06-23-2023 HAV IgM Ql (S) Negative Normal Negative [facility] Comment on above: Order Comment: Speci men Type: BLOOD SPECIMENOrdering Facility: [facility] Address: [address] [place] [address] Result Comment: No e vidence of recent infection with Hepatitis A virus. Performed By: #### 3 1204-1, 5195, 57466-5 ####[facility] LABCLIA [id number] [place] [address] [place] HBV core IgM Ser Qlon 2023 HBV core IgM Ql (S) Negative Normal Negative [facility] Comment on above: Order Comment: Speci men Type: BLOOD SPECIMENOrdering Facility: [facility] Address: [address] [place] [address] Result Comment: No e vidence of recent infection with Hepatitis B virus. Should recent infection be suspected, repeat testing may be considered 3-4 weeks after this draw. Performed By: #### 3 1204-1, 5195-, 13013-5 ####[facility] LABCLIA [id number] [place] [address] [place] HBV surface Ag Ser Qlon 06-13 HBV surface Ag Ql (S) Negative Normal Negative [facility] Comment on above: Order Comment: Speci men Type: BLOOD SPECIMENOrdering Facility: [facility] Address: [address] [place] [address] Performed By: #### 3 1204-1, 5195-3, 60232-4 ####[facility] LABCLIA [id number] [facility] [address] [place] HCV RNA SerPl SENAIT+probe-aCnc on 06-23-2023 HCV RNA SENAIT+probe Qn Not detected Normal HCV RNA not detected by PCR. [facility] Comment on above: Order Comment: Speci men Type: BLOOD SPECIMEN [facility] Address: [address] [place] [address] Performed By: #### 1 1011-4 #### [facility] CLIA [id number] [facility] [address] [place] ALLIED HEALTHon 06-22-2023 ALLIED HEALTH HNO ID: [id number] Author: SELENA AMADOR RT(R) Service: Radiology Author [...] PERIPHERAL IV DATA: Inpatient - refer to [facility] documentation RADIOLOGY DEPARTMENT: CT; Exam(s) Completed: Abdomen/Pelvis SIGNATURE: RT Jose(R) PATIENT NAME: Livia Noyola DATE: June 22, 2023 TIME: 7:46 PM [facility] HNO ID: [id number] Author: DELLA BEST RDMS, RVT Service: Radiology Author Type: Textile Science Technician Type: Allied Health Filed: 06/22/2023 18:55 Note [...] RDMS, GINETTE June 22, 2023 6:55 PM [facility] CBC W Auto Differential pane l (Bld)on 06-22-2023 Basophils (Bld) [#/Vol] 0.03 10*3/uL Normal <0.11 [facility] Comment on above: Order Comment: Speci men Type: BLOOD SPECIMENOrdering Facility: [facility] Address: [address] [place] [address] Performed By: #### 5 7021-8 ####[facility]ATORYCLIA [id number] [address] [place] [address] [place] Basophils/100 WBC (Bld) 0.6 % Normal [facility] Comment on above: Order Comment: Speci men Type: BLOOD SPECIMENOrdering Facility: [facility] Address: [address] [place] [address] Performed By: #### 5 7021-8 ####[facility]ORATORYCLIA [id number] [address] [place] [address] [place] Differential cell count method Nom (Bld) Auto [facility] Comment on above: Order Comment: Speci men Type: BLOOD SPECIMENOrdering Facility: [facility] Address: [address] [place] [address] Performed By: #### 5 7021-8 ####[facility] LABORATORYCLIA [id number] [place] [address] [place] Eosinophils (Bld) [#/Vol] 0.03 10*3/uL Normal <0.46 [facility] Comment on above: Order Comment: Speci men Type: BLOOD SPECIMENOrdering Facility: [facility] Address: [address] [place] [address] Performed By: #### 5 7021-8 ####[facility]ATORYCLIA [id number] [address] [place] Eosinophils/100 WBC (Bld) 0.6 % Normal [facility] Comment on above: Order Comment: Speci men Type: BLOOD SPECIMENOrdering Facility: [facility] Address: [address] [place] [address] Performed By: #### 5 7021-8 ####[facility] LABORATORYCLIA [id number] [address] [place] Erythrocyte distribution width (RBC) [Ratio] 16.5 % High 11.5-15.0 [facility] Comment on above: Order Comment: Speci men Type: BLOOD SPECIMENOrdering Facility: [facility] Address: [address] [place] [address] Performed By: #### 5 7021-8 ####[facility] LABORATORYCLIA [id number] [address] [place], [place] [address] [place] Hematocrit (Bld) [Volume fraction] 37.7 % Normal 36.0-46.0 [facility] Comment on above: Order Comment: Speci men Type: BLOOD SPECIMENOrdering Facility: [facility] Address: [address] [place] [address] Performed By: #### 5 7021-8 ####[facility]ATORYCLIA [id number] [address] [place] [address] [place] Hemoglobin (Bld) [Mass/Vol] 11.7 g/dL Normal 11.5-15.5 [facility] Comment on above: Order Comment: Speci men Type: BLOOD SPECIMENOrdering Facility: [facility] Address: [address] [place] [address] Performed By: #### 5 7021-8 ####[facility] LABORATORYCLIA [id number] [place] [address] [place] Immature granulocytes (Bld) [#/Vol] 10*3/uL Normal <0.10 [facility] Comment on above: Order Comment: Speci men Type: BLOOD SPECIMENOrdering Facility: [facility] Address: [address] [place] [address] Performed By: #### 5 7021-8 ####[facility] LABORATORYCLIA [id number] [place] [address] [place] Immature granulocytes/100 WBC (Bld) 0.4 % Normal [facility] Comment on above: Order Comment: Speci men Type: BLOOD SPECIMENOrdering Facility: [facility] Address: [address] [place] [address] Performed By: #### 5 7021-8 ####[facility] LABORATORYCLIA [id number] [place] [address] [place] Lymphocytes (Bld) [#/Vol] 1.87 10*3/uL Normal 1.00-4.00 [facility] Comment on above: Order Comment: Speci men Type: BLOOD SPECIMENOrdering Facility: [facility] Address: [address] [place] [address] Performed By: #### 5 7021-8 ####[facility] LABORATORYCLIA [id number] [place] [address] [place] Lymphocytes/100 WBC (Bld) 34.4 % Normal [facility] Comment on above: Order Comment: Speci men Type: BLOOD SPECIMENOrdering Facility: [facility] Address: [address] [place] [address] Performed By: #### 5 7021-8 ####[facility] LABORATORYCLIA [id number] [place] [address] [place] MCH (RBC) [Entitic mass] 24.5 pg Low 26.0-34.0 [facility] Comment on above: Order Comment: Speci men Type: BLOOD SPECIMENOrdering Facility: [facility] Address: [address] [place] [address] Performed By: #### 5 7021-8 ####[facility] LABORATORYCLIA [id number] [place] [address] [place] MCHC (RBC) [Mass/Vol] 31.0 g/dL Normal 30.5-36.0 [facility] Comment on above: Order Comment: Speci men Type: BLOOD SPECIMENOrdering Facility: [facility] Address: [address] [place] [address] Performed By: #### 5 7021-8 ####[facility] LABORATORYCLIA [id number] [place] [address] [place] MCV (RBC) [Entitic vol] 79.0 fL Low 80.0-100.[address] [facility] Comment on above: Order Comment: Speci men Type: BLOOD SPECIMENOrdering Facility: [facility] Address: [address] [place] [address] Performed By: #### 5 7021-8 ####[facility] LABORATORYCLIA [id number] [place] [address] [place] Monocytes (Bld) [#/Vol] 0.25 10*3/uL Normal <0.87 [facility] Comment on above: Order Comment: Speci men Type: BLOOD SPECIMENOrdering Facility: [facility] Address: [address] [place] [address] Performed By: #### 5 7021-8 ####[facility] LABORATORYCLIA [id number] [address] [place] [address] [place] Monocytes/100 WBC (Bld) 4.6 % Normal [facility] Comment on above: Order Comment: Speci men Type: BLOOD SPECIMENOrdering Facility: [facility] Address: [address] [place] [address] Performed By: #### 5 7021-8 ####[facility] LABORATORYCLIA [id number] [address] [place] [address] [place] Neutrophils (Bld) [#/Vol] 3.23 10*3/uL Normal 1.45-7.50 [facility] Comment on above: Order Comment: Speci men Type: BLOOD SPECIMENOrdering Facility: [facility] Address: [address] [place] [address] Performed By: #### 5 7021-8 ####[facility] LABORATORYCLIA [id number] [place] [address] [place] Neutrophils/100 WBC (Bld) 59.4 % Normal [facility] Comment on above: Order Comment: Speci men Type: BLOOD SPECIMENOrdering Facility: [facility] Address: [address] [place] [address] Performed By: #### 5 7021-8 ####[facility] LABORATORYCLIA [id number] [place] [address] [place] Nucleated RBC (Bld) [#/Vol] 10*3/uL Normal <0.01 [facility] Comment on above: Order Comment: Speci men Type: BLOOD SPECIMENOrdering Facility: [facility] Address: [address] [place] [address] Performed By: #### 5 7021-8 ####[facility] LABORATORYCLIA [id number] [address] [place] [address] [place] Nucleated RBC/100 WBC (Bld) [Ratio] 0.0 /100 WBC Normal [facility] Comment on above: Order Comment: Speci men Type: BLOOD SPECIMENOrdering Facility: [facility] Address: [address] [place] [address] Performed By: #### 5 7021-8 ####[facility] LABORATORYCLIA [id number] [place] [address] [place] Platelet mean volume (Bld) [Entitic vol] 9.4 fL Normal 9.0-12.7 [facility] Comment on above: Order Comment: Speci men Type: BLOOD SPECIMENOrdering Facility: [facility] Address: [address] [place] [address] Performed By: #### 5 7021-8 ####[facility] LABORATORYCLIA [id number] [place] [address] [place] Platelets (Bld) [#/Vol] 486 10*3/uL High 150-400 [facility] Comment on above: Order Comment: Speci men Type: BLOOD SPECIMENOrdering Facility: [facility] Address: [address] [place] [address] Performed By: #### 5 7021-8 ####[facility] LABORATORYCLIA [id number] [place] [address] [place] RBC (Bld) [#/Vol] 4.77 10*6/uL Normal 3.90-5.20 [facility] Comment on above: Order Comment: Speci men Type: BLOOD SPECIMENOrdering Facility: [facility] Address: [address] [place] [address] Performed By: #### 5 7021-8 ####[facility] LABORATORYCLIA [id number] [place] [address] [place] WBC (Bld) [#/Vol] 5.43 10*3/uL Normal 3.70-11.00 [facility] Comment on above: Order Comment: Speci men Type: BLOOD SPECIMENOrdering Facility: [facility] Address: [address] [place] [address] Performed By: #### 5 7021-8 ####[facility] LABORATORYCLIA [id number] [address] [address] [place] CT ABD/PEL W [...] Tissues: No significant finding. Lower thorax: Unremarkable. Histotechnician (topogram) images: Unremarkable. IMPRESSION: No acute intra-abdominal or pelvic process identified. Outsole Paraffiner: PSCB Transcribe Date/Time: Jun 22 2023 8:25P Dictated by : CHAD SCHILLING MD This examination was interpreted and the report reviewed and electronically signed by: CHAD SCHILLING MD on Jun 22 2023 8:29PM EST [id number] Normal [facility] Comprehensive metabolic 2000 panelon 06-22-2023 Albumin [Mass/Vol] 4.8 g/dL Normal 3.9-4.9 [facility] Comment on above: Order Comment: Speci men Type: BLOOD SPECIMENOrdering Facility: [facility] Address: [address] [place] [address] Performed By: #### 2 4323-8, 3040-3, ####[facility] LABORATORYCLIA [id number] [address] [place], [place] [address] [place] ALP [Catalytic activity/Vol] 108 U/L Normal 34-123 [facility] Comment on above: Order Comment: Speci men Type: BLOOD SPECIMENOrdering Facility: [facility] Address: [address] [place] [address] Performed By: #### 2 4323-8, 0-3, ####[facility] LABORATORYCLIA [id number] [address] [place], [place] [address] [place] ALT [Catalytic activity/Vol] 63 U/L High 7-38 [facility] Comment on above: Order Comment: Speci men Type: BLOOD SPECIMENOrdering Facility: [facility] Address: [address] [place] [address] Performed By: #### 2 4323-8, 3039-3, ####[facility] LABORATORYCLIA [id number] [place] [address] [place] Anion gap [Moles/Vol] 13 mmol/L Normal 9-18 [facility] Comment on above: Order Comment: Speci men Type: BLOOD SPECIMENOrdering Facility: [facility] Address: [address] [place] [address] Performed By: #### 2 4323-8, 0-3, ####[facility] LABORATORYCLIA [id number] [place] [address] [place] AST [Catalytic activity/Vol] 109 U/L High 13-35 [facility] Comment on above: Order Comment: Speci men Type: BLOOD SPECIMENOrdering Facility: [facility] Address: [address] [place] [address] Performed By: #### 2 4323-8, 3040-3, ####[facility] LABORATORYCLIA [id number] [address] [place], [place] [address] [place] Bilirubin [Mass/Vol] 0.4 mg/dL Normal 0.2-1.3 [facility] Comment on above: Order Comment: Speci men Type: BLOOD SPECIMENOrdering Facility: [facility] Address: [place] [address] Performed By: #### 2 4323-8, 0-3, ####[facility] LABORATORYCLIA [id number] [address] [place], [place] [address] [place] Calcium [Mass/Vol] 9.6 mg/dL Normal 8.5-10.2 [facility] Comment on above: Order Comment: Speci men Type: BLOOD SPECIMENOrdering Facility: [facility] Address: [place] [address] Performed By: #### 2 4323-8, 3039-3, ####[facility] LABORATORYCLIA [id number] [address] [place] [address] [place] Chloride [Moles/Vol] 102 mmol/L Normal 97-105 [facility] Comment on above: Order Comment: Speci men Type: BLOOD SPECIMENOrdering Facility: [facility] Address: [place] [address] Performed By: #### 2 4323-8, 3, ####[facility] LABORATORYCLIA [id number] [place] [address] [place] CO2 [Moles/Vol] 23 mmol/L Normal 22-30 [facility] Comment on above: Order Comment: Speci men Type: BLOOD SPECIMENOrdering Facility: [facility] Address: [address] [place] [address] Performed By: #### 2 4323-8, 3039-3, ####[facility] LABORATORYCLIA [id number] [place] [address] [place] Creatinine [Mass/Vol] 0.64 mg/dL Normal 0.58-0.96 [facility] Comment on above: Order Comment: Speci men Type: BLOOD SPECIMENOrdering Facility: [facility] Address: [address] [place] [address] Performed By: #### 2 4323-8, 3040-3, 68242-3 ####[facility] LABORATORYCLIA [id number] [place] [address] [place] Creatinine and Glomerular filtration rate.predicted panel (S/P/Bld) 118 mL/min/1.73m??? Normal >=60 [facility] Comment on above: Order Comment: Roselyn conway Type: BLOOD SPECIMENOrdering Facility: [facility] Address: [address] [place] [address] Result Comment: Shelley mated Glomerular Filtration Rate [...] GFR. Performed By: #### 2 4323-8, 3040-3, ####[facility] LABORATORYCLIA [id number] [place] [address] [place] Glucose [Mass/Vol] 102 mg/dL High 74-99 [facility] Comment on above: Order Comment: Roselyn conway Type: BLOOD SPECIMENOrdering Facility: [facility] Address: [address] [place] [address] Result Comment: The [place] [employer] (ADA) provides guidance for cutoff [...] Standards of Medical Care in Diabetes 2016, [place] [employer]. Diabetes Care. 2016.39(Suppl 1). Performed By: #### 2 4323-8, 3043, ####[facility] LABORATORYCLIA [id number] [address] [place], [place] [address] [place] Potassium [Moles/Vol] 3.8 mmol/L Normal 3.7-5.1 [facility] Comment on above: Order Comment: Speci men Type: BLOOD SPECIMENOrdering Facility: [facility] Address: [address] [place] [address] Performed By: #### 2 4323-8, 3, ####[facility] LABORATORYCLIA [id number] [address] [place], [place] [address] [place] Protein [Mass/Vol] 8.2 g/dL High 6.3-8.0 [facility] Comment on above: Order Comment: Speci men Type: BLOOD SPECIMENOrdering Facility: [facility] Address: [address] [place] [address] Performed By: #### 2 4323-8, 3, ####[facility] LABORATORYCLIA [id number] [place] [address] [place] Sodium [Moles/Vol] 138 mmol/L Normal 136-144 [facility] Comment on above: Order Comment: Speci men Type: BLOOD SPECIMENOrdering Facility: [facility] Address: [address] [place] [address] Performed By: #### 2 4323-8, 3, ####TENRIISM LABORATORYCLIA [id number] [place] [id number] [place] Urea nitrogen [Mass/Vol] 8 mg/dL Normal 7-21 [facility] Comment on above: Order Comment: Speci men Type: BLOOD SPECIMENOrdering Facility: [facility] Address: [address] [place] [address] Performed By: #### 2 4323-8, 3039-3, ####TENRIISM LABORATORYCLIA [id number] [place] [id number] [place] ECG COMPLETEon 06-22-2023 ECG COMPLETE Ventricular Rate : 105 BPM Atrial Rate : 103 BPM P-R Interval : 152 ms QRS Duration : 77 ms Q-T Interval : 324 ms QTC Calculation(Bazett) : 429 ms Calculated P Graham : 42 degrees Calculated R Graham : 56 degrees Calculated T Graham : 49 degrees Sinus tachycardia Low voltage, precordial leads Anteroseptal infarct, old Abnormal ECG no stemi 181 Confirmed by MD SEN BRENT ([id number]), greeting card editor STEPHENIE ERIC ([id number]) on 06/23/2023 12:09:36 PM NAME : LIVIA NOYOLA PID : [id number] : 1985 Gender : Female Race : ORD : [id number] Procedure Date : Jun 22 2023 18:10:13 Edit Date : Jun 23 2023 12:09:40 Diagnosis: Sinus tachycardia Low voltage, precordial leads Anteroseptal infarct, old Abnormal ECG no stemi 1814 Confirmed by MD SEN BRENT ([id number]), greeting card editor STEPHENIE ERIC (1940) on 06/23/2023 12:09:36 PM Test Reason : Tachycardia Location : 502 : [facility] ED Overread By : MD SEN BRENT Edited By : STEPHENIE ERIC Referred By : , Acquired by : DAVID [facility] ED NOTEon 06-22-2023 ED NOTE HNO ID: [id number] Author: DENNIS CAMARGO RN Service: ? Author Type: Registered Nurse Type: ED Notes Filed: 06/22/2023 21:56 Note Text: Assumed care of pt at this time and received report from previous RN. [facility] ED NOTE HNO ID: [id number] Author: MATILDE DAVIS RN Service: Nursing Author Type: Registered Nurse Type: ED Notes Filed: 06/22/2023 17:38 Note Text: Pt presents with LLQ pain that radiates to back that began this morning but worsened one hour prior to arrival. Denies urinary complaints. [facility] ED PROV NOTEon 06-22-2023 ED PROV NOTE HNO ID: [id number] Author: EVGENY SEN MD Service: Emergency Medicine [...] with some relief. 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 Normal [facility] ED Triage Noteon 06-22-2023 ED Triage Note HNO ID: [id number] Author: TABBY LUCIANO PA-C Service: ? Author Type: Physician Shaper Set Up Operator Type: ED Triage Notes Filed: 06/22/2023 17:43 [...] treating team. SIGNATURE: Tabby Luciano PA-C Normal [facility] HCG Preg Ur Qlon 06-22-2023 HCG ( test) Ql (U) Negative Normal Negative [facility] Comment on above: Order Comment: Speci men Type: URINE SPECIMENOrdering Facility: [facility] Address: [address] [place] [address] [place] [address] Result Comment: This test is intended to aid in the early detection of . Very dilute urine samples, as indicated by a low specific gravity, may not contain sales utility representative levels of hCG. This test detects [...] for . Performed By: #### 2 106-3 ####TENRIISM LABORATORYCLIA [id number] [place] [address] [place] Lipase SerPl-cCncon 06-22-19 24 Lipase [Catalytic activity/Vol] 34 U/L Normal 16-61 [facility] Comment on above: Order Comment: Speci men Type: BLOOD SPECIMENOrdering Facility: [facility] Address: [address] [place] [address] Performed By: #### 2 4323-8, 3040-3, 69846-4 ####TENRIISM LABORATORYCLIA [id number] [place] [address] [place] Magnesium SerPl-mCncon 06-22 Magnesium [Mass/Vol] 2.2 mg/dL Normal 1.7-2.3 [facility] Comment on above: Order Comment: Speci men Type: BLOOD SPECIMENOrdering Facility: [facility] Address: [address] [place] [address] Performed By: #### 2 4323-8, 3040-3, 12106-8 ####TENRIISM [facility] HOSPITALCLIA [id number] [place] [address] [place] US DOPPLER COMPLETEon 2023 US DOPPLER COMPLETE * * *Final Report* * * DATE OF EXAM: Jun 22 2023 6:54PM [facility] 1033 - US DOPPLER COMPLETE / [...] and stored in a permanent archive. MQ: [facility] COMPARISON: None RESULT: Uterus: -Size: [...] Normal sonographic appearance of the female pelvis. Outsole Paraffiner: ANTONIO Transcribe Date/Time: Jun 22 2023 7:44P Dictated by : Vasu BURNS MD This examination was interpreted and the report reviewed and electronically signed by: Vasu BURNS MD on Jun 22 2023 7:48PM EST [id number] CN [facility] FEMALE PELVIS TRANSABD LT Don 06-22-2023 FEMALE [...] and stored in a permanent archive. MQ: [facility] COMPARISON: None RESULT: Uterus: -Size: [...] Normal sonographic appearance of the female pelvis. Outsole Paraffiner: ANTONIO Transcribe Date/Time: Jun 22 2023 7:44P Dictated by : Vasu BURNS MD This examination was interpreted and the report reviewed and electronically signed by: Vasu BURNS MD on Jun 22 2023 7:48PM EST [id number] CN [facility] US FEMALE PELVIS TRANSVAGon 06-22-2023 US [...] and stored in a permanent archive. MQ: [facility]_2021 COMPARISON: None RESULT: Uterus: -Size: [...] Normal sonographic appearance of the female pelvis. Outsole Paraffiner: ANTONIO Transcribe Date/Time: Jun 22 2023 7:44P Dictated by : Vasu BURNS MD This examination was interpreted and the report reviewed and electronically signed by: Vasu BURNS MD on Jun 22 2023 7:48PM EST [id number] [facility] Urinalysis complete panel (U )on 06-22-2023 Bacteria LM.HPF (Urine sed) [#/Area] Few Abnormal None Seen [facility] Comment on above: Order Comment: Speci men Type: URINE SPECIMENOrdering Facility: [facility] Address: [address] [place] [address] Performed By: #### 2 4356-8 ####TENRIISM LABORATORYCLIA [id number] [address] [place] [address] [place] Bilirubin Ql (U) Negative Normal Negative [facility] Comment on above: Order Comment: Speci men Type: URINE SPECIMENOrdering Facility: [facility] Address: [address] [place] [address] Performed By: #### 2 4356-8 ####TENRIISM LABORATORYCLIA [id number] [address] [place] [address] [place] Clarity (Unsp spec) Clear Normal Clear [facility] Comment on above: Order Comment: Speci men Type: URINE SPECIMENOrdering Facility: [facility] Address: [address] [place] [address] Performed By: #### 2 4356-8 ####TENRIISM LABORATORYCLIA [id number] [address] [place] [address] [place] Color (U) Yellow Normal Yellow [facility] Comment on above: Order Comment: Speci men Type: URINE SPECIMENOrdering Facility: [facility] Address: [address] [place] [address] Performed By: #### 2 4356-8 ####TENRIISM LABORATORYCLIA [id number] [address] [place] [address] [place] Epithelial cells LM.HPF (Urine sed) [#/Area] Few Normal [facility] Comment on above: Order Comment: Speci men Type: URINE SPECIMENOrdering Facility: [facility] Address: [address] [place] [address] Performed By: #### 2 4356-8 ####TENRIISM LABORATORYCLIA [id number] [address] [place] [address] [place] Glucose Test strip (U) [Mass/Vol] Negative Normal Negative [facility] Comment on above: Order Comment: Speci men Type: URINE SPECIMENOrdering Facility: [facility] Address: [address] [place] [address] Performed By: #### 2 4356-8 ####TENRIISM LABORATORYCLIA [id number] [address] [place] [address] [place] Hemoglobin Ql (U) Negative Normal Negative [facility] Comment on above: Order Comment: Speci men Type: URINE SPECIMENOrdering Facility: [facility] Address: [address] [place] [address] Performed By: #### 2 4356-8 ####TENRIISM LABORATORYCLIA [id number] [place] [address] [place] Ketones Ql (U) Trace Abnormal Negative [facility] Comment on above: Order Comment: Speci men Type: URINE SPECIMENOrdering Facility: [facility] Address: [address] [place] [address] Performed By: #### 2 4356-8 ####TENRIISM LABORATORYCLIA [id number] [address] [place] Leukocyte esterase Test strip Ql (U) Negative Normal Negative [facility] Comment on above: Order Comment: Speci men Type: URINE SPECIMENOrdering Facility: [facility] Address: [address] [place] [address] Performed By: #### 2 4356-8 ####TENRIISM LABORATORYCLIA [id number] [address] [place] Nitrite Ql (U) Negative Normal Negative [facility] Comment on above: Order Comment: Speci men Type: URINE SPECIMENOrdering Facility: [facility] Address: [address] [place] [address] Performed By: #### 2 4356-8 ####TENRIISM LABORATORYCLIA [id number] [address] [place] pH (U) 6.5 [pH] Normal 5.0-8.0 [facility] Comment on above: Order Comment: Speci men Type: URINE SPECIMENOrdering Facility: [facility] Address: [address] [place] [address] Performed By: #### 2 4356-8 ####TENRIISM LABORATORYCLIA [id number] [address] [place] [address] [place] Protein (U) [Mass/Vol] Negative Normal Negative [facility] Comment on above: Order Comment: Speci men Type: URINE SPECIMENOrdering Facility: [facility] Address: [address] [place] [address] Performed By: #### 2 4356-8 ####TENRIISM LABORATORYCLIA [id number] [place] [address] [place] RBC LM.HPF (Urine sed) [#/Area] 0-3 /HPF Normal 0-3 /HPF [facility] Comment on above: Order Comment: Speci men Type: URINE SPECIMENOrdering Facility: [facility] Address: [address] [place] [address] Performed By: #### 2 4356-8 ####TENRIISM LABORATORYCLIA [id number] [place] [address] [place] Specific gravity (U) [Rel density] 1.020 Normal 1.005-1.030 [facility] Comment on above: Order Comment: Speci men Type: URINE SPECIMENOrdering Facility: [facility] Address: [address] [place] [address] Performed By: #### 2 4356-8 ####TENRIISM LABORATORYCLIA [id number] [address] [place] Urobilinogen Ql (U) 1.0 EU/dL Normal 0.2-1.0 EU/dL [facility] Comment on above: Order Comment: Speci men Type: URINE SPECIMENOrdering Facility: [facility] Address: [address] [place] [address] Performed By: #### 2 4356-8 ####TENRIISM LABORATORYCLIA [id number] [address] [place] WBC LM.HPF (Urine sed) [#/Area] 0-5 /HPF Normal 0-5 /HPF [facility] Comment on above: Order Comment: Speci men Type: URINE SPECIMENOrdering Facility: [facility] Address: [address], [place] [address] Performed By: #### 2 4356-8 ####TENRIISM LABORATORYIA [id number] [address] [address] [place] Basic Metabolic Profon 05-30 Anion gap [Moles/Vol] 12 mmol/L Normal 9-17 [facility] Comment on above: Performed By: #### B MP, LIP, LIVP, CDP, HCG #### [facility] [address] [place], [place] [id number] Distribution Operations Manager: Jennifer Freire MD BUN/CRE Ratio 7 Low 9-20 [facility] Comment on above: Performed By: #### B MP, LIP, LIVP, CDP, HCG #### [facility] [address] [place], [place] [id number] Distribution Operations Manager: Jennifer Freire MD Calcium [Mass/Vol] 9.8 mg/dL Normal 8.6-10.4 [facility] Comment on above: Performed By: #### B MP, LIP, LIVP, CDP, HCG #### [facility] [address] [place], [place] 1422[address] Distribution Operations Manager: Jennifer Freire MD Chloride [Moles/Vol] 99 mmol/L Normal 98-107 [facility] Comment on above: Performed By: #### B MP, LIP, LIVP, CDP, HCG #### [facility] [address] [place], [place] [id number] Distribution Operations Manager: Jennifer Freire MD CO2 [Moles/Vol] 24 mmol/L Normal 20-31 [facility] Comment on above: Performed By: #### B MP, LIP, LIVP, CDP, HCG #### [facility] [address] [place], [place] [id number] Distribution Operations Manager: Jennifer Freire MD Creatinine [Mass/Vol] 0.7 mg/dL Normal 0.5-0.9 [facility] Comment on above: Performed By: #### B MP, LIP, LIVP, CDP, HCG #### [facility] [address] [place] [address] Distribution Operations Manager: Jennifer Freire MD GFR/1.73 sq M.predicted among non-blacks MDRD (S/P/Bld) [Vol rate/Area] mL/min/{1.73_m2} Normal >60 [facility] Comment on above: Result Comment: These results [...] B MP, LIP, LIVP, CDP, HCG #### [facility] [address] [place] [address] Distribution Operations Manager: Jennifer Freire MD Glucose [Mass/Vol] 97 mg/dL Normal 70-99 [facility] Comment on above: Performed By: #### B MP, LIP, LIVP, CDP, HCG #### [facility] [address] [place] [address] Distribution Operations Manager: Jennifer Freire MD Potassium [Moles/Vol] 3.9 mmol/L Normal 3.7-5.3 [facility] Comment on above: Performed By: #### B MP, LIP, LIVP, CDP, HCG #### [facility] [address] [place] [address] Distribution Operations Manager: Jennifer Freire MD Sodium [Moles/Vol] 135 mmol/L Normal 135-144 [facility] Comment on above: Performed By: #### B MP, LIP, LIVP, CDP, HCG #### [facility] [address] [place] [phone] Distribution Operations Manager: Jennifer Freire MD Urea nitrogen [Mass/Vol] 5 mg/dL Low 6-20 [facility] Comment on above: Performed By: #### B MP, LIP, LIVP, CDP, HCG #### [facility] [address] [place] [address] Distribution Operations Manager: Jennifer Freire MD CBC with Diffon 05-30-2023 Abs. Basophil 0.02 k/uL Normal 0.00-0.20 [facility] Comment on above: Performed By: #### B MP, LIP, LIVP, CDP, HCG #### [facility] [address] [place] [address] Distribution Operations Manager: Jennifer Freire MD Abs.Imm.Granulocyte 0.00 k/uL Normal 0.00-0.30 [facility] Comment on above: Performed By: #### B MP, LIP, LIVP, CDP, HCG #### [facility] [address] [place] [id number] Distribution Operations Manager: Jennifer Freire MD Abs.Neutrophil (Seg) 2.21 k/uL Low 2.5-7.0 [facility] Comment on above: Performed By: #### B MP, LIP, LIVP, CDP, HCG #### [facility] [address] [place] [address] Distribution Operations Manager: Jennifer Freire MD Basophils/100 WBC (Bld) 0 % Normal 0-2 [facility] Comment on above: Performed By: #### B MP, LIP, LIVP, CDP, HCG #### [facility] [address] [place] [phone] Distribution Operations Manager: Jennifer Freire MD Eosinophils (Bld) [#/Vol] 0.05 10*3/uL Normal 0.00-0.40 [facility] Comment on above: Performed By: #### B MP, LIP, LIVP, CDP, HCG #### [facility] [address] [place], [place] [phone] Distribution Operations Manager: Jennifer Freire MD Eosinophils/100 WBC (Bld) 1 % Normal 0-5 [facility] Comment on above: Performed By: #### B MP, LIP, LIVP, CDP, HCG #### [facility] [address] [place] [phone] Distribution Operations Manager: Jennifer Freire MD Erythrocyte distribution width (RBC) [Ratio] 16.5 % High 12.1-15.2 [facility] Comment on above: Performed By: #### B MP, LIP, LIVP, CDP, HCG #### [facility] [address] [place] [address] Distribution Operations Manager: Jennifer Freire MD Hematocrit (Bld) [Volume fraction] 37.2 % Normal 36.0-46.0 [facility] Comment on above: Performed By: #### B MP, LIP, LIVP, CDP, HCG #### [facility] [address] [place] [phone] Distribution Operations Manager: Jennifer Freire MD Hemoglobin (Bld) [Mass/Vol] 11.7 g/dL Low 12.0-16.0 [facility] Comment on above: Performed By: #### B MP, LIP, LIVP, CDP, HCG #### [facility] [address] [place] [address] Distribution Operations Manager: Jennifer Freire MD Immature granulocytes/100 WBC (Bld) 0 % Normal 0-5 [facility] Comment on above: Performed By: #### B MP, LIP, LIVP, CDP, HCG #### [facility] [address] [place] [phone] Distribution Operations Manager: Jennifer Freire MD Lymphocytes (Bld) [#/Vol] 2.45 10*3/uL Normal 1.00-4.80 [facility] Comment on above: Performed By: #### B MP, LIP, LIVP, CDP, HCG #### [facility] [address] [place] [address] Distribution Operations Manager: Jennifer Freire MD Lymphocytes/100 WBC (Bld) 48 % High 15-40 [facility] Comment on above: Performed By: #### B MP, LIP, LIVP, CDP, HCG #### [facility] [address] [place] [address] Distribution Operations Manager: Jennifer Freire MD MCH (RBC) [Entitic mass] 24.2 pg Low 26.0-34.0 [facility] Comment on above: Performed By: #### B MP, LIP, LIVP, CDP, HCG #### [facility] [address] [place] [address] Distribution Operations Manager: Jennifer Freire MD MCHC (RBC) [Mass/Vol] 31.5 g/dL Normal 31.0-37.0 [facility] Comment on above: Performed By: #### B MP, LIP, LIVP, CDP, HCG #### [facility] [address] [place] [address] Distribution Operations Manager: Jennifer Freire MD MCV (RBC) [Entitic vol] 76.9 fL Low 80.0-100.0 [facility] Comment on above: Performed By: #### B MP, LIP, LIVP, CDP, HCG #### [facility] [address] [place] [address] Distribution Operations Manager: Jennifer Freire MD Monocytes (Bld) [#/Vol] 0.37 10*3/uL Normal 0.00-1.00 [facility] Comment on above: Performed By: #### B MP, LIP, LIVP, CDP, HCG #### [facility] [address] [place] [address] Distribution Operations Manager: Jennifer Freire MD Monocytes/100 WBC (Bld) 7 % Normal 4-8 [facility] Comment on above: Performed By: #### B MP, LIP, LIVP, CDP, HCG #### [facility] [address] [place], [place] [phone] ([phone]) Distribution Operations Manager: Jennifer Freire MD Neutrophil (Seg) 43 % Low 47-75 [facility] Comment on above: Performed By: #### B MP, LIP, LIVP, CDP, HCG #### [facility] [address] [place], [place] [phone] ([phone]) Distribution Operations Manager: Jennifer Freire MD Platelet mean volume (Bld) [Entitic vol] 8.7 fL Normal 6.0-12.0 [facility] Comment on above: Performed By: #### B MP, LIP, LIVP, CDP, HCG #### [facility] [address] [place], [place] [phone] (457) Distribution Operations Manager: Jennifer Freire MD Platelets (Bld) [#/Vol] 512 10*3/uL High 140-450 [facility] Comment on above: Performed By: #### B MP, LIP, LIVP, CDP, HCG #### [facility] [address] [place] [address] Distribution Operations Manager: Jennifer Freire MD RBC (Bld) [#/Vol] 4.84 10*6/uL Normal 4.00-5.20 [facility] Comment on above: Performed By: #### B MP, LIP, LIVP, CDP, HCG #### [facility] [address] [place], [place] [phone] ([phone]) Distribution Operations Manager: Jennifer Freire MD WBC (Bld) [#/Vol] 5.1 10*3/uL Normal 3.5-11.0 [facility] Comment on above: Performed By: #### B MP, LIP, LIVP, CDP, HCG #### [facility] [address] [place], [place] [phone] ([phone]) Distribution Operations Manager: Jennifer Freire MD CT ABDOMEN PELVIS W [...] Marilyn Narvaez MD 05/30/23 Final result Normal [facility] HCG Screen, Bloodon 05-30-20 HCG Screen, Blood Negative Normal NEG [facility] Comment on above: Result Comment: Spec imens with hCG levels near the threshold of the test (25 mIU/mL) may give a negative or indeterminate result. In such cases, another test should be performed with a new specimen in 48-72 hours. If early is suspected clinically in this setting, correlation with quantitative serum b-hCG level is suggested. [facility] has confirmed the use of plasma for this test. This has not been cleared or approved by the U.S. Food and Drug Administration. The FDA has determined that such clearance is not necessary. Performed By: #### B MP, LIP, LIVP, CDP, HCG #### [facility] [address] [place] [address] Distribution Operations Manager: Jennifer Freire MD Lipaseon 05-30-2023 Lipase [Catalytic activity/Vol] 28 U/L Normal 13-60 [facility] Comment on above: Performed By: #### B MP, LIP, LIVP, CDP, HCG #### [facility] [address] [place], [place] [id number] Distribution Operations Manager: Jennifer Freire MD Liver Profileon 05-30-2023 Albumin [Mass/Vol] 4.3 g/dL Normal 3.5-5.2 [facility] Comment on above: Performed By: #### B MP, LIP, LIVP, CDP, HCG #### [facility] [address] [place], [place] [phone] Distribution Operations Manager: Jennifer Freire MD Alkaline Phos 86 U/L Normal 35-104 [facility] Comment on above: Performed By: #### B MP, LIP, LIVP, CDP, HCG #### [facility] [address] [place], [place] [phone] Distribution Operations Manager: Jennifer Freire MD ALT [Catalytic activity/Vol] 14 U/L Normal 5-33 [facility] Comment on above: Performed By: #### B MP, LIP, LIVP, CDP, HCG #### [facility] [address] [place], [place] [phone] Distribution Operations Manager: Jennifer Freire MD AST [Catalytic activity/Vol] 18 U/L Normal <32 [facility] Comment on above: Performed By: #### B MP, LIP, LIVP, CDP, HCG #### [facility] [address] [place], [place] [id number] Distribution Operations Manager: Jennifer Freire MD Bilirubin [Mass/Vol] 0.5 mg/dL Normal 0.3-1.2 [facility] Comment on above: Performed By: #### B MP, LIP, LIVP, CDP, HCG #### [facility] [address] [place], [place] [phone] Distribution Operations Manager: Jennifer Freire MD Bilirubin, Indirect Can not be calculated Normal 0.0-1.0 [facility] Comment on above: Performed By: #### B MP, LIP, LIVP, CDP, HCG #### [facility] [address] [place] [address] Distribution Operations Manager: Jennifer Freire MD Bilirubin.indirect [Mass/Vol] mg/dL Normal <0.3 [facility] Comment on above: Performed By: #### B MP, LIP, LIVP, CDP, HCG #### [facility] [address] [place], [place] 2655[address] Distribution Operations Manager: Jennifer Freire MD Protein [Mass/Vol] 7.9 g/dL Normal 6.4-8.3 [facility] Comment on above: Performed By: #### B MP, LIP, LIVP, CDP, HCG #### [facility] [address] [place] [address] Distribution Operations Manager: Jennifer Freire MD Urinalysis, Routineon 2022 Bilirubin, SemiQt,Ur Negative Normal NEG [facility] Comment on above: Performed By: #### U A #### [facility] [address] [place], [place] [phone] Distribution Operations Manager: Jennifer Freire MD Blood, Urine Negative Normal NEG [facility] Comment on above: Performed By: #### U A #### [facility] [address] [place], [place] [phone] Distribution Operations Manager: Jennifer Freire MD Clarity (U) Clear Normal CLEAR [facility] Comment on above: Performed By: #### U A #### [facility] [address] [facility] [place] [phone] Distribution Operations Manager: Jennifer Freire MD Color (U) Yellow Normal YEL [facility] Comment on above: Performed By: #### U A #### [facility] [address] [place], [place] [phone] Distribution Operations Manager: Jennifer Freire MD Comment Normal [facility] Comment on above: Performed By: #### U A #### [facility] [address] [place] [address] Distribution Operations Manager: Jennifer Freire MD Glucose Ql (U) Negative Normal NEG [facility] Comment on above: Performed By: #### U A #### [facility] [address] [place] [address] Distribution Operations Manager: Jennifer Freire MD Ketones Ql (U) Negative Normal NEG [facility] Comment on above: Performed By: #### U A #### [facility] [address] [place] [address] Distribution Operations Manager: Jennifer Freire MD Leukocyte esterase Test strip Ql (U) Negative Normal NEG [facility] Comment on above: Performed By: #### U A #### [facility] [address] [place], [place] [address]12[address]90 Distribution Operations Manager: Jennifer Freire MD Nitrite,Ur Negative Normal NEG [facility] Comment on above: Performed By: #### U A #### [facility] [address] [place], [place] 3997990 Distribution Operations Manager: Jennifer Freire MD PH,Ur 8.0 Normal 5.0-8.0 [facility] Comment on above: Performed By: #### U A #### [facility] [address] [place] [address] Distribution Operations Manager: Jennifer Freire MD Protein Ql (U) Negative Normal NEG [facility] Comment on above: Performed By: #### U A #### [facility] [address] [place] [address] Distribution Operations Manager: Jennifer Freire MD Spec. Loda,Ur 1.010 Normal 1.005-1.030 [facility] Comment on above: Performed By: #### U A #### [facility] [address] [place], [place] 34[address]90 Distribution Operations Manager: Jennifer Freire MD Urobilinogen,Ur Normal Normal 0.0-1.0 [facility] Comment on above: Performed By: #### U A #### [facility] [address] [place] [address] Distribution Operations Manager: Jennifer Freire MD Discharge Instructionson Discharge Instructions [id number] 120 [id number] #1.00TIFF Normal [facility] ED Clinical Summaryon 2022 ED Clinical Summary [address] [address] ED Clinical Summary Person Information [facility]: [facility] Age[facility] 38 Years : 1985 Sex: Female Language: Sammarinese PCP: BETTIE MIRELES Marital Status: Visit Id: [...] 05/18/2023 00:57:00 ADDRESS: [address] [place] [id number] PHYS DOC NOTES: MEDICAL INFORMATION: Prescriptions Given: Medications to Continue with No Changes Other Medications alprazolam (alprazolam 0.25 mg Tab) budesonide-formotero l (Symbicort 80/4.5 inhalation aerosol with adapter) citalopram (citalopram 20 mg Tab) By Mouth every day. 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 We discussed [...] 05/21/2023 EST [address], [address] [place] [address]- Business (1) Additional Instructions: Patient [...] (05/17/23 21:12 (more content not included)... Normal [facility] Comment on above: Result Comment: Elec [...] Follow these instructions at home: ? Take nurr-muk-utetvfa and prescription medicines only as told by [...] Reviewed: 11/06/2020 Elsevier Patient Education ? 2022 ixigo. Normal [facility] ED Patient Summaryon 023 ED Patient Summary [address] [address] Patient Discharge Instructions Person Information Name: LIVIA NOYOLA Age: 38 Years Arrival Date: 05/17/2023 20:20:39 Discharge Diagnosis: Bilateral ovarian cysts; Unspecified ovarian cyst, left side Primary Care Physician: BETTIE MIRELES Provider Information Primary Provider: Ritesh Heath DO Advanced Diesel Locomotive Engineer:Shazia The exam and treatment you received in the Emergency Department were for an urgent problem and are not intended as complete care. It is important that you follow up with a doctor, nurse practitioner, or physician?s administrative support assistant for ongoing care. If your symptoms [...] Follow-up Instructions: With: Address: When: Ino Royal [address] [place] [address] [address] Business (1) In 3 days 05/21/2023 In the event that this physician does not participate in your insurance network, please consult with your insurance company to find a nearby participating provider. Patient Education Materials: Ovarian Cyst A MESSAGE TO ALL PATIENTS REGARDING OPIOIDS PRESCRIPTION OPIOIDS: WHAT YOU NEED TO KNOW Prescription opioids can be used to help relieve egwyjoyq-zb-akduhy pain and are often prescribed following a [...] be struggling with addiction, tell your health child care attendant and ask for guidance or call [facility]?S National Helpline at 8-722-641-EUTL. (more content not included)... Normal [facility] UA With Cult Reflexon 2022 Bacteria LM Ql (Urine sed) TRACE Normal Trace [facility] Comment on above: Performed By: #### 2 [id number], [id number] ####[facility] [address] [place] [address] Bilirubin Ql (U) Negative Normal Negative [facility] Comment on above: Performed By: #### 2 1746222, 08588825 ####[facility] [address] [place] [address] Clarity (U) CLEAR Normal Clear [facility] Comment on above: Performed By: #### 2 1829164, [id number] ####[facility] [address] [place] [address] Color (U) YELLOW Normal Yellow [facility] Comment on above: Performed By: #### 2 7960094, 77692111 ####[facility] [address] [place] [address] Epithelial cells.squamous LM.HPF (Urine sed) [#/Area] 3-4 Normal 0-2 [facility] Comment on above: Performed By: #### 2 2998168, 20265505 ####[facility] [address] [place] [address] Glucose Test strip (U) [Mass/Vol] Negative Normal Negative [facility] Comment on above: Performed By: #### 2 0757234, 94448793 ####[facility] [address] [place] [address] Hemoglobin Ql (U) Negative Normal Negative [facility] Comment on above: Performed By: #### 2 5485141, 75227366 ####[facility] [address] [place] [address] Ketones (U) [Mass/Vol] TRACE Invalid Interpretation Code Negative [facility] Comment on above: Performed By: #### 2 0186934, 33323474 ####[address] [address] Igo.plasma/Igo. RBC (Bld) [Mass ratio] 0-3 Normal 0-3 [facility] Comment on above: Performed By: #### 2 0484205, 80404972 ####[facility] [address] [place] [address] Mucus Ql (Urine sed) 2+ Normal [facility] Comment on above: Performed By: #### 2 9612906, 41581992 ####[facility] [address] [place] [address] Nitrite Ql (U) Negative Normal Negative [facility] Comment on above: Performed By: #### 2 0676984, 32935560 ####[facility] [address] [place] [address] pH (U) 6.0 [pH] Invalid Interpretation Code 5.0-9.0 [facility] Comment on above: Performed By: #### 2 4566897, 26163551 ####[facility] [address] [place] [address] Protein (U) [Mass/Vol] Negative Normal Negative [facility] Comment on above: Performed By: #### 2 2976318, 41363216 ####[facility] [address] [place] [address] Specific gravity (U) [Rel density] >=1.030 Invalid Interpretation Code 1.005-1.030 [facility] Comment on above: Performed By: #### 2 7377367, 67722087 ####[facility] [address] [place] [address] Type of Urine collection method Clean Catch Normal [facility] Comment on above: Performed By: #### 2 6835849, 00559877 ####[address] [address] Urobilinogen Qn (U) 2.0 {Ivone'U}/dL Abnormal 0.0-1.0 [facility] Comment on above: Performed By: #### 2 6125228, 54048982 ####[place] [address] WBC Auto Ql (U) Negative Normal Negative [facility] Comment on above: Performed By: #### 2 0939267, 96672863 ####[facility] [address] [place] [address] WBC LM.HPF (Urine sed) [#/Area] 0-5 Normal 0-5 [facility] Comment on above: Performed By: #### 2 3347485, 45061192 ####[address] [address] US Pelvis Non-OB Completeon 05-18-2023 US Pelvis [...] CARMELINA Technical Comments Transabdominal Ultrasound Performed Normal [facility] Auto Diffon 05-17-2023 Basophils/100 WBC (Bld) 0.4 % Normal 0.0-2.0 [facility] Comment on above: Order Comment: Order Added by Lis Expert. Performed By: #### 2 973760, 88972303, 5833802, 9210379, 8774715, 20789960, 4965077 ####[facility] [address] [place] [address] Basophils/Leukocytes Auto (Bld) [Pure # fraction] 0.0 E9/L Normal 0.0-0.2 [facility] Comment on above: Order Comment: Order Added by Discern Expert. Performed By: #### 2 668851, 73780929, 5892886, 5756567, 0844145, 79725664, 6452675 ####[facility] [address] [place] [address] Eosinophils/100 WBC (Bld) 0.2 % Normal 0.0-8.0 [facility] Comment on above: Order Comment: Order Added by Discern Expert. Performed By: #### 2 832034, 13215824, 7818236, 1974037, 7976095, 13471090, 5734344 ####[facility] [address] [place] [address] Eosinophils/Leukocytes Auto (Bld) [Pure # fraction] 0.0 E9/L Normal 0.0-0.5 [facility] Comment on above: Order Comment: Order Added by Discern Expert. Performed By: #### 2 400628, 17490410, 2911139, 5571022, 2680409, 93815373, 4141231 ####[address] [address] Lymphocytes/100 WBC (Bld) 33.4 % Normal 14.0-50.0 [facility] Comment on above: Order Comment: Order Added by Lis Expert. Performed By: #### 2 689197, 71494100, 7783644, 9657954, 6862577, 24164886, 9105310 ####[facility] [address] [place] [address] Lymphocytes/Leukocytes Auto (Bld) [Pure # fraction] 2.8 E9/L Normal 1.0-4.0 [facility] Comment on above: Order Comment: Order Added by Lis Expert. Performed By: #### 2 967928, 05461574, 1334738, 9462448, 8006684, 07027455, 2010453 ####[place] [address] [place] [address] Monocytes/100 WBC (Bld) 9.1 % Normal 4.0-14.[address] [facility] Comment on above: Order Comment: Order Added by Lis Expert. Performed By: #### 2 544835, 70851578, 7484326, 9469587, 8858102, 99939476, 8639266 ####[place] [address] [place] [address] Monocytes/Leukocytes Auto (Bld) [Pure # fraction] 0.8 E9/L Normal 0.2-1.0 [facility] Comment on above: Order Comment: Order Added by Discern Expert. Performed By: #### 2 255232, 74153541, 7304625, 1600078, 2218201, 49317305, 6181480 ####[facility] [address] [place] [address] Neutrophils/100 WBC (Bld) 56.9 % Normal 36.0-75.0 [facility] Comment on above: Order Comment: Order Added by Discern Expert. Performed By: #### 2 696542, 44571142, 3428238, 7548997, 6557894, 48011607, 1849704 ####[facility] [address] [place] [address] Neutrophils/Leukocytes Auto (Bld) [Pure # fraction] 4.8 E9/L Normal 2.0-7.5 [facility] Comment on above: Order Comment: Order Added by Discern Expert. Performed By: #### 2 829835, 74108336, 4980431, 6685763, 3958002, 51335651, 4100890 ####[facility] [address] [place] [address] BMP 05-17-2023 Creatinine [Mass/Vol] 0.8 mg/dL Normal 0.5-1.3 [facility] Comment on above: Performed By: #### 2 876054, 44028288, 5367341, 9574431, 4955957, 53313160, 5706283 ####[facility] [address] [place] [address] Urea nitrogen [Mass/Vol] 5 mg/dL Normal 5-21 [facility] Comment on above: Performed By: #### 2 969517, 27270286, 1865817, 3490651, 3350577, 19380607, 0365473 ####[facility] [address] [place] [address] Urea nitrogen/Creatinine [Mass ratio] 6 No Units Low 10-20 [facility] Comment on above: Performed By: #### 2 824595, 69333771, 1297741, 0385848, 7713220, 79613201, 1348469 ####[facility] [address] [place] [address] Anion gap [Moles/Vol] 11 mmol/L Normal 6-16 [facility] Comment on above: Performed By: #### 2 342041, 68847473, 0811963, 0508516, 4594655, 94980742, 9559202 ####[facility] [address] [place] [address] Calcium [Mass/Vol] 9.3 mg/dL Normal 8.9-11.1 [facility] Comment on above: Performed By: #### 2 227262, 87264097, 0645613, 8023442, 1109963, 21898966, 7448276 ####[facility] [address] [place] [address] Chloride [Moles/Vol] 109 mmol/L Normal 101-111 [facility] Comment on above: Performed By: #### 2 211711, 25584035, 2437838, 0865817, 0846782, 00903182, 7825273 ####[facility] [address] [place] [address] CO2 [Moles/Vol] 23 mmol/L Normal 21-31 [facility] Comment on above: Performed By: #### 2 778206, 41108283, 7824269, 1361357, 7835462, 88768490, 3736833 ####[facility] [address] [place] [address] Glucose [Mass/Vol] 104 mg/dL Normal 55-199 [facility] Comment on above: Result Comment: If t his glucose result represents a fasting glucose, interpretation should refer to the following reference range: 55-99 mg/dL Performed By: #### 2 873881, 75763652, 7589170, 7516681, 6303933, 08375524, 2474534 ####[facility] [address] [place] [address] Potassium [Moles/Vol] 4.1 mmol/L Normal 3.5-5.3 [facility] Comment on above: Performed By: #### 2 928080, 48855622, 8388532, 8486341, 0632378, 11583735, 0844349 ####[facility] [address] [place] [address] Sodium [Moles/Vol] 139 mmol/L Normal 135-145 [facility] Comment on above: Performed By: #### 2 597201, 54296733, 1691706, 1684435, 3112328, 57407809, 4048668 ####[facility] [address] [place] [address] CBC w/ Auto Diffon 3 Erythrocyte distribution width (RBC) [Ratio] 18.7 % High 10.9-14.2 [facility] Comment on above: Performed By: #### 2 421029, 23605346, 7516741, 6542447, 9126267, 04054807, 5402163 ####[address] [address] Hematocrit (Bld) [Volume fraction] 37.4 % Normal 34.0-46.0 [facility] Comment on above: Performed By: #### 2 943656, 50223589, 7880350, 9007286, 1686412, 43343298, 7249546 ####[address] [address] Hemoglobin (Bld) [Mass/Vol] 11.7 g/dL Low 12.0-16.0 [facility] Comment on above: Performed By: #### 2 283700, 26744747, 1432890, 5386519, 2012860, 08773713, 0844041 ####[place] [address] [place] [address] MCH (RBC) [Entitic mass] 24.4 pg Low 27.0-34.0 [facility] Comment on above: Performed By: #### 2 711164, 12981462, 8469076, 2218607, 2251783, 88239641, 3924933 ####[facility] [address] [place] [address] MCHC (RBC) [Mass/Vol] 31.2 g/dL Low 31.4-36.[address] [facility] Comment on above: Performed By: #### 2 301916, 94770504, 8535950, 3301793, 4881915, 48192905, 3527005 ####[place] [address] [place] [address] MCV (RBC) [Entitic vol] 78.2 fL Low 80.0-100.0 [facility] Comment on above: Performed By: #### 2 044407, 77791213, 7487078, 9773323, 4151628, 51953843, 8735419 ####[address] [address] Platelet mean volume (Bld) [Entitic vol] 7.8 fL Normal 6.4-10.8 [facility] Comment on above: Performed By: #### 2 296956, 61322793, 5608127, 5970185, 1763901, 37321238, 3368176 ####[address] [address] Platelets (Bld) [#/Vol] 469.0 E9/L Normal 150.0-500.0 [facility] Comment on above: Performed By: #### 2 481366, 91907932, 4317262, 6628508, 8395038, 37153877, 7648767 ####[place] [address] [place] [address] RBC (Bld) [#/Vol] 4.8 E12/L Normal 4.3-5.9 [facility] Comment on above: Performed By: #### 2 358971, 63524202, 8213166, 7452796, 6458675, 06374351, 4533617 ####[address] [address] WBC corrected for nucl RBC Auto (Bld) [#/Vol] 8.5 E9/L Normal 4.0-11.0 [facility] Comment on above: Performed By: #### 2 389280, 78323505, 0400244, 7180094, 4486776, 60996396, 6558921 ####[facility] [address] [place] [address] Consent for Treatmenton Consent for Treatment [id number] #1.00TIFF Normal [facility] Hep Func Panelon 05-17-2023 Albumin [Mass/Vol] 4.2 g/dL Normal 3.3-5.0 [facility] Comment on above: Performed By: #### 2 310064, 06217349, 3644145, 6233019, 4473809, 07324597, 8077523 ####[facility] [address] [place] [address] Albumin/Globulin (S) [Mass conc ratio] 1.2 Normal 1.1-2.2 [facility] Comment on above: Performed By: #### 2 346506, 91982891, 0855624, 0329977, 9301348, 80711411, 9165574 ####[facility] [address] [place] [address] ALP [Catalytic activity/Vol] 58 Int._Unit/L Normal 21-98 [facility] Comment on above: Performed By: #### 2 138956, 49796354, 0668485, 1601988, 2768885, 03523139, 5816182 ####[facility] [address] [place] [address] ALT No additional P-5'-P [Catalytic activity/Vol] 14 Int._Unit/L Normal 6-46 [facility] Comment on above: Performed By: #### 2 331162, 47526298, 4486512, 3580456, 8538794, 66426669, 0302758 ####[facility] [address] [place] [address]57 AST [Catalytic activity/Vol] 21 Int._Unit/L Normal 5-43 [facility] Comment on above: Performed By: #### 2 494038, 51356370, 1741415, 9245550, 7259909, 24734901, 5706507 ####[facility] [address] [place] [address] Bilirubin [Mass/Vol] 0.6 mg/dL Normal 0.0-1.1 [facility] Comment on above: Performed By: #### 2 668324, 96059013, 4725510, 2252368, 2425904, 09674048, 2580883 ####[place] [address] Bilirubin.direct [Mass/Vol] 0.1 mg/dL Normal 0.1-0.4 [facility] Comment on above: Performed By: #### 2 207040, 21694507, 7550138, 4493844, 8381416, 95625902, 5967994 ####[facility] [address] [place] [address] Bilirubin.indirect [Mass or moles/Vol] 0.5 mg/dL Normal 0.1-0.9 [facility] Comment on above: Performed By: #### 2 635085, 00804430, 8166473, 4601561, 6946726, 85664494, 4582326 ####[facility] [address] [place] [address] Globulin (S) [Mass/Vol] 3.6 g/dL Normal 1.4-4.0 [facility] Comment on above: Performed By: #### 2 190447, 79163210, 6435668, 9980818, 7533095, 57869744, 7608385 ####[facility] [address] [place] [address] Protein [Mass/Vol] 7.8 g/dL Normal 6.0-7.8 [facility] Comment on above: Performed By: #### 2 071341, 90207361, 5311992, 0225064, 8022602, 28529027, 0826397 ####[facility] [address] [place] [address] Lipase Levelon 05-17-2023 Lipase [Catalytic activity/Vol] 57 U/L Normal 13-58 [facility] Comment on above: Performed By: #### 2 095821, 68538487, 6555735, 0178730, 8490855, 72183638, 9219080 ####[facility] [address] [place] [address] Morphon 05-17-2023 Anisocytosis Ql (Bld) Present Normal Fis [facility] Comment on above: Order Comment: Order Added by Discern Expert. Performed By: #### 2 260320, 19917252, 2626479, 6262841, 8332230, 91669543, 8844417 ####[place] [address] [place] [address] Hypochromia Auto Ql (Bld) Present Normal [facility] Comment on above: Order Comment: Order Added by Discern Expert. Performed By: #### 2 043908, 00419474, 7474514, 5098456, 4491391, 74808210, 8247450 ####[facility] [address] [place] [address] Microcytes Ql (Bld) Present [facility] Comment on above: Order Comment: Order Added by Discern Expert. Performed By: #### 2 484633, 34984649, 6064389, 5128091, 5383798, 43542793, 3321367 ####[facility] [address] [place] [address] Morphology Edson (Bld) [Interp] See Morphology Normal [facility] Comment on above: Order Comment: Order Added by Discern Expert. Performed By: #### 2 454391, 25436089, 0623417, 7782170, 5375755, 61319611, 0526905 ####[facility] [address] [place] [address] Ovalocytes LM Ql (Bld) Present Normal [facility] Comment on above: Order Comment: Order Added by Discern Expert. Performed By: #### 2 878059, 60534506, 0731092, 1629652, 6821013, 13444407, 1233589 ####[facility] [address] [place] [address] U BetaHcg Qualon 05-17-2023 HCG.beta subunit (U) [Moles/Vol] Negative Normal [facility] Comment on above: Performed By: #### 2 5245520, 62079734 ####[facility] [address] [place] [address] eGFRon 05-17-2023 GFR/1.73 sq M.predicted among non-blacks MDRD (S/P/Bld) [Vol rate/Area] 98 mL/min/1.73 m2 Normal >=59 [facility] Comment on above: Order Comment: Order added by Discern Expert. Result Comment: Material Chaser franklin kidney disease could be indicated at eGFR's of less than 60 mL/min/1.73m2. Kidney failure is indicated at less than 15 mL/min/1.73m2. Performed By: #### 2 374788, 16559579, 6873503, 2974907, 7621588, 72135340, 5127626 ####[facility] [address] [place] [address] Alanine aminotransferase [En zymatic activity/volume] in Serum or PlasmaOrdered By: Elier Jackson on 04-30-2023 ALT [Catalytic activity/Vol] 15 U/L 7-52 [facility] Albumin [Mass/volume] in Ser um or Plasma by Bromocresol green (BCG) dye binding methoOrdered By: Elier Jackson on 04-30-2023 Albumin BCG dye [Mass/Vol] 4.3 g/dL 3.5-5.7 [facility] Alkaline phosphatase [Enzyma tic activity/volume] in Serum or PlasmaOrdered By: Elier Jackson on 04-30-2023 ALP [Catalytic activity/Vol] 68 U/L 34-104 [facility] Aspartate aminotransferase [ Enzymatic activity/volume] in Serum or PlasmaOrdered By: Elier Velásquezjulian on 04-30-2023 AST [Catalytic activity/Vol] 17 U/L 13-39 [facility] Automated erythrocytes count in urine sediment (number/area)Ordered By: Elier Velásquezjulian on 04-30-2023 RBC Auto (Urine sed) [#/Area] 5-9 [HPF] 0-4 [facility] Automated leukocytes count i n urine sediment (number/area)Ordered By: Elier Manuel on 04-30-2023 WBC Auto (Urine sed) [#/Area] 0-1 [HPF] 0-4 [facility] Basic Metabolic Panelon 04-13 Anion gap [Moles/Vol] 14.7 mmol/L Normal 6.0-15.0 [facility] Comment on above: Performed By: #### C BC #### [facility] [address] [place] [address] [place] Calcium [Mass/Vol] 9.2 mg/dL Normal 8.6-10.3 [facility] Comment on above: Performed By: #### C BC #### [facility] [address] [place] [address] [place] Chloride [Moles/Vol] 109 mmol/L High 98-107 [facility] Comment on above: Performed By: #### C BC #### [facility] [address] [place] [address] [place] CO2 [Moles/Vol] 20.1 mmol/L Low 21.0-31.[address] [facility] Comment on above: Performed By: #### C BC #### [facility] [address] [place] [address] [place] Creatinine [Mass/Vol] 0.65 mg/dL Normal 0.60-1.20 [facility] Comment on above: Performed By: #### C BC #### [facility] [address] [place] [id number] [place] Creatinine Clr Calc Pharmacy 107.67 Normal [facility] Comment on above: Performed By: #### C BC #### [facility] [address] [place] [address] GFR/1.73 sq M.predicted MDRD (S/P/Bld) [Vol rate/Area] mL/min/{1.73_m2} Normal [facility] Comment on above: Performed By: #### C BC #### [facility] [address] Glucose [Mass/Vol] 100 mg/dL Normal 70-100 [facility] Comment on above: Result Comment: [facility] Glucose Reference Range is dependent on time and content of last meal. Glucose of more than 200 mg/dL in a nonstressed, ambulatory subject supports the diagnosis of Diabetes Mellitus. ADA recommended reference range Performed By: #### C BC #### [facility] [address] [place] [address] Potassium [Moles/Vol] 3.8 mmol/L Normal 3.5-5.1 [facility] Comment on above: Performed By: #### C BC #### [facility] [address] [place] [address] Sodium [Moles/Vol] 140 mmol/L Normal 136-145 [facility] Comment on above: Performed By: #### C BC #### [facility] [address] [place] [address] Urea nitrogen [Mass/Vol] 6 mg/dL Low 7-25 [facility] Comment on above: Performed By: #### C BC #### [facility] [address] [place] [address] Basophils Auto (Bld) [#/Vol] Ordered By: Elier Jackson on 04-30-2023 Basophils (Bld) [#/Vol] 0.0 10*3/uL 0.0-0.2 [facility] Basophils/100 WBC Auto (Bld) Ordered By: Elier Jackson on 04-30-2023 Basophils/100 WBC (Bld) 1.3 % . [facility] Bilirubin Test strip Ql (U)O rdered By: Elier Jackson on 04-30-2023 Bilirubin Ql (U) Negative Negative [facility] Bilirubin.direct [Mass/volum e] in Serum or PlasmaOrdered By: Elier Jackson on 04-30-2023 Bilirubin.direct [Mass/Vol] 0.10 mg/dL 0.03-0.18 [facility] Bilirubin.total [Mass/volume ] in Serum or PlasmaOrdered By: Elier Jackson on 04-30-2023 Bilirubin [Mass/Vol] 0.4 mg/dL 0.3-1.0 [facility] Calcium [Mass/volume] in Ser um or PlasmaOrdered By: Elier Jackson on 04-30-2023 Calcium [Mass/Vol] 9.2 mg/dL 8.6-10.3 [facility] Carbon dioxide, total [Moles /volume] in Serum or PlasmaOrdered By: Elier Jackson on 04-30-2023 CO2 [Moles/Vol] 20.1 mmol/L 21.0-31.[address] [facility] Chloride [Moles/volume] in S binu or PlasmaOrdered By: Elier Jackson on 04-30-2023 Chloride [Moles/Vol] 109 mmol/L 98-107 [facility] Color Auto (U)Ordered By: Julian Jackson on 04-30-2023 Color (U) Yellow Yellow [facility] Complete Blood Count Auto Di ffon 04-30-2023 Basophils (Bld) [#/Vol] 0.0 10*3/uL Normal 0.0-0.2 [facility] Comment on above: Result Comment: PERF ORMED BY: [facility] [address] [place] [address] PATHOLOGIST MASTER SHEET CLERK FARNAZ ZULETA M.D. Performed By: #### C BC #### [facility] [address] Basophils/100 WBC (Bld) 1.3 % Normal . [facility] Comment on above: Performed By: #### C BC #### [facility] [address] Eosinophils (Bld) [#/Vol] 0.0 10*3/uL Normal 0.0-0.45 [facility] Comment on above: Performed By: #### C BC #### [address] Eosinophils/100 WBC (Bld) 0.6 % Normal . [facility] Comment on above: Performed By: #### C BC #### [address] Erythrocyte distribution width (RBC) [Ratio] 16.8 % High 11.9-15.3 [facility] Comment on above: Performed By: #### C BC #### [address] Hematocrit (Bld) [Volume fraction] 32.3 % Low 34.0-46.4 [facility] Comment on above: Performed By: #### C BC #### [address] Hemoglobin (Bld) [Mass/Vol] 11.2 g/dL Low 11.8-15.4 [facility] Comment on above: Performed By: #### C BC #### [address] Lymphocytes (Bld) [#/Vol] 1.6 10*3/uL Normal 1.00-4.8 [facility] Comment on above: Performed By: #### C BC #### [address] Lymphocytes/100 WBC (Bld) 44.2 % Normal . [facility] Comment on above: Performed By: #### C BC #### [address] MCH (RBC) [Entitic mass] 30.4 pg Normal 24.7-34.3 [facility] Comment on above: Performed By: #### C BC #### [address] MCV (RBC) [Entitic vol] 87.6 fL Normal 80-100 [facility] Comment on above: Performed By: #### C BC #### [address] Mean Corpuscular HGB Conc 34.7 g/dL Normal 32.0-35.0 [facility] Comment on above: Performed By: #### C BC #### [facility] [address] [place] [address] [place] Monocytes (Bld) [#/Vol] 0.3 10*3/uL Normal 0.0-0.8 [facility] Comment on above: Performed By: #### C BC #### [facility] [address] [place] [address] [place] Monocytes/100 WBC (Bld) 16.58 % Normal 0.00-20.00 [facility] Comment on above: Performed By: #### C BC #### [facility] [address] [place] [address] [place] Monocytes/100 WBC (Bld) 7.0 % Normal . [facility] Comment on above: Performed By: #### C BC #### [facility] [address] Neutrophils (Bld) [#/Vol] 1.7 10*3/uL Low 1.8-7.7 [facility] Comment on above: Performed By: #### C BC #### [facility] [address] [place] [address] [place] Neutrophils/100 WBC (Bld) 46.9 % Normal . [facility] Comment on above: Performed By: #### C BC #### [place] [address] [place] NRBC% 0.1 /100{WBC} Normal 0-0.5 [facility] Comment on above: Performed By: #### C BC #### [facility] [address] [place] [address] [place] Platelet mean volume (Bld) [Entitic vol] 8.0 fL Normal 6.3-10.7 [facility] Comment on above: Performed By: #### C BC #### [place] [address] [place] Platelets (Bld) [#/Vol] 415 10*3/uL Normal 150-450 [facility] Comment on above: Performed By: #### C BC #### [facility] [address] [place] [address] [place] RBC (Bld) [#/Vol] 3.68 10*6/uL Normal 3.60-5.00 [facility] Comment on above: Performed By: #### C BC #### [facility] [address] [place] [address] WBC (Bld) [#/Vol] 3.6 10*3/uL Low 3.8-11.6 [facility] Comment on above: Performed By: #### C BC #### [address] Creatinine [Mass/volume] in Serum or PlasmaOrdered By: Elier Jackson on 04-30-2023 Creatinine [Mass/Vol] 0.65 mg/dL 0.60-1.20 [facility] Dipstick and Microscopicon 1 06-30-2022 Appearance (U) Clear Normal Clear [facility] Comment on above: Order Comment: Name Collection Type:: Voided Performed By: #### H CGQNT #### [facility] [address] [place] [address] [place] Bacteria,Urine None Seen Normal None Seen [facility] Comment on above: Order Comment: Name Collection Type:: Voided Performed By: #### H CGQNT #### [facility] [address] [place] [address] [place] Bilirubin,Urine Negative Normal Negative [facility] Comment on above: Order Comment: Name Collection Type:: Voided Performed By: #### H CGQNT #### [facility] [address] [place] [address] [place] Color (U) Yellow Normal Yellow [facility] Comment on above: Order Comment: Name Collection Type:: Voided Performed By: #### H CGQNT #### [facility] [address] [place] [address] [place] Glucose Ql (U) Normal Normal Normal [facility] Comment on above: Order Comment: Name Collection Type:: Voided Performed By: #### H CGQNT #### [address] [place] [address] [place] Hyaline Casts,Urine 0-8 Normal 0-8 [facility] Comment on above: Order Comment: Name Collection Type:: Voided Performed By: #### H CGQNT #### [place] [address] [place] Ketones Ql (U) Negative Normal Negative [facility] Comment on above: Order Comment: Name Collection Type:: Voided Performed By: #### H CGQNT #### [address] Leukocyte esterase Test strip Ql (U) Negative Normal Negative [facility] Comment on above: Order Comment: Name Collection Type:: Voided Performed By: #### H CGQNT #### [place] [address] [place] Nitrite,Urine Negative Normal Negative [facility] Comment on above: Order Comment: Name Collection Type:: Voided Performed By: #### H CGQNT #### [address] Occult Blood,Urine 2+ High Negative [facility] Comment on above: Order Comment: Name Collection Type:: Voided Performed By: #### H CGQNT #### [address] pH (U) 5.5 [pH] Normal 5.0-9.0 [facility] Comment on above: Order Comment: Name Collection Type:: Voided Performed By: #### H CGQNT #### [facility] [address] [place] [address] [place] Protein,Urine Negative Normal Negative [facility] Comment on above: Order Comment: Name Collection Type:: Voided Performed By: #### H CGQNT #### [place] [address] [place] RBC,Urine 5-9 High 0-4 [facility] Comment on above: Order Comment: Name Collection Type:: Voided Performed By: #### H CGQNT #### [facility] [address] [place] [address] [place] Specificy Loda,Urine 1.018 Normal 1.001-1.030 [facility] Comment on above: Order Comment: Name Collection Type:: Voided Performed By: #### H CGQNT #### [facility] [address] [place] [address] Squamous Epithelial Cell,Urine 0-1 Normal 0-2 [facility] Comment on above: Order Comment: Name Collection Type:: Voided Performed By: #### H CGQNT #### [facility] [address] [place] [address] Urobilinogen,Urine Normal Normal Normal [facility] Comment on above: Order Comment: Name Collection Type:: Voided Performed By: #### H CGQNT #### [facility] [address] [place] [address] WBC LM.HPF (Urine sed) [#/Area] 0 /[HPF] Normal 0-4 [facility] Comment on above: Order Comment: Name Collection Type:: Voided Performed By: #### H CGQNT #### [facility] [address] [place] [address] Eosinophils Auto (Bld) [#/Vo l]Ordered By: Elier Jackson on 04-30-2023 Eosinophils (Bld) [#/Vol] 0.0 10*3/uL 0.0-0.45 [facility] Eosinophils/100 WBC Auto (Bl d)Ordered By: Elier Jackson on 04-30-2023 Eosinophils/100 WBC (Bld) 0.6 % . [facility] Erythrocyte distribution wid th Auto (RBC) [Ratio]Ordered By: Elier Jackson on 04-30-2023 Erythrocyte distribution width (RBC) [Ratio] 16.8 % 11.9-15.3 [facility] Globulin Calc (S) [Mass/Vol] Ordered By: Elier Jackson on 04-30-2023 Globulin (S) [Mass/Vol] 3.3 g/dL [facility] Glucose [Mass/volume] in Ser um or PlasmaOrdered By: Elier Jackson on 04-30-2023 Glucose [Mass/Vol] 100 mg/dL 70-100 [facility] Comment on above: ADA recommended refe rence rangeRandom Glucose Reference Range is dependent on time and content of last meal. Glucose of more than 200 mg/dL in a nonstressed, ambulatory subject supports the diagnosis of Diabetes Mellitus. HCG ( test) IA.rapi d Ql (U)Ordered By: Elier Jackson on 04-30-2023 HCG ( test) Ql (U) Negative [facility] HCG,Urineon 04-30-2023 Beta HCG ( test) Ql (U) Negative Normal [facility] Comment on above: Order Comment: Name Collection Type:: Voided Result Comment: PERF ORMED BY: [place] [address] PATHOLOGIST MASTER SHEET CLERK FARNAZ ZULETA M.D. Performed By: #### H CGQNT #### [address] Hematocrit Auto (Bld) [Volum e fraction]Ordered By: Elier Jackson on 04-30-2023 Hematocrit (Bld) [Volume fraction] 32.3 % 34.0-46.4 [facility] Hemoglobin [Mass/volume] in BloodOrdered By: Elier Jackson on 04-30-2023 Hemoglobin (Bld) [Mass/Vol] 11.2 g/dL 11.8-15.4 [facility] Hepatic Panelon 04-30-2023 Albumin [Mass/Vol] 4.3 g/dL Normal 3.5-5.7 [facility] Comment on above: Performed By: #### C BC #### [address] Albumin/Globulin [Mass ratio] 1.3 {ratio} Normal [facility] Comment on above: Performed By: #### C BC #### [address] ALP [Catalytic activity/Vol] 68 U/L Normal 34-104 [facility] Comment on above: Performed By: #### C BC #### [place] [address] [place] ALT [Catalytic activity/Vol] 15 U/L Normal 7-52 [facility] Comment on above: Performed By: #### C BC #### [facility] [address] AST [Catalytic activity/Vol] 17 U/L Normal 13-39 [facility] Comment on above: Performed By: #### C BC #### [facility] [address] Bilirubin [Mass/Vol] 0.4 mg/dL Normal 0.3-1.0 [facility] Comment on above: Performed By: #### C BC #### [facility] [address] Bilirubin,Indirect 0.3 mg/dL Normal [facility] Comment on above: Performed By: #### C BC #### [facility] [address] Bilirubin.indirect [Mass/Vol] 0.10 mg/dL Normal 0.03-0.18 [facility] Comment on above: Performed By: #### C BC #### [facility] [address] Globulin (S) [Mass/Vol] 3.3 g/dL Normal [facility] Comment on above: Performed By: #### C BC #### [facility] [address] Protein [Mass/Vol] 7.6 g/dL Normal 6.4-8.9 [facility] Comment on above: Performed By: #### C BC #### [facility] [address] Ketones Auto test strip (U) [Mass/Vol]Ordered By: Elier Jackson on 04-30-2023 Ketones (U) [Mass/Vol] Negative Negative [facility] - UrinalysisOrder ed By: Elier Jackson on 04-30-2023 Hyaline casts LM Ql (Urine sed) 0-8 [LPF] 0-8 [facility] Leukocytes [#/volume] correc flo for nucleated erythrocytes in Blood by Automated counOrdered By: Elier Jackson on 04-30-2023 WBC corrected for nucl RBC Auto (Bld) [#/Vol] 3.6 10*3/uL 3.8-11.6 [facility] Lipaseon 04-30-2023 Lipase [Catalytic activity/Vol] 31.0 U/L Normal 11.0-82.0 [facility] Comment on above: Result Comment: PERF ORMED BY: [place] [address] PATHOLOGIST MASTER SHEET CLERK FARNAZ ZULETA M.D. Performed By: #### C BC #### [address] Lipase [Enzymatic activity/v olume] in Serum or PlasmaOrdered By: Elier Jackson on 04-30-2023 Lipase [Catalytic activity/Vol] 31.0 U/L 11.0-82.0 [facility] Lymphocytes Auto (Bld) [#/Vo l]Ordered By: Elier Jackson on 04-30-2023 Lymphocytes (Bld) [#/Vol] 1.6 10*3/uL 1.00-4.8 [facility] Lymphocytes/100 WBC Auto (Bl d)Ordered By: Elier Jackson on 04-30-2023 Lymphocytes/100 WBC (Bld) 44.2 % . [facility] MCH Auto (RBC) [Entitic mass ]Ordered By: Elier Jackson on 04-30-2023 MCH (RBC) [Entitic mass] 30.4 pg 24.7-34.3 [facility] MCHC Auto (RBC) [Mass/Vol]Or dered By: Elier Jackson on 04-30-2023 MCHC (RBC) [Mass/Vol] 34.7 g/dL 32.0-35.0 [facility] MCV Auto (RBC) [Entitic vol] Ordered By: Elier Jackson on 04-30-2023 MCV (RBC) [Entitic vol] 87.6 fL 80-100 [facility] Monocyte distribution width [Entitic volume] in Blood by AutomatedOrdered By: Elier Jackson on 04-30-2023 Monocyte distribution width Auto (Bld) [Entitic vol] 16.58 % 0.00-20.00 [facility] Monocytes Auto (Bld) [#/Vol] Ordered By: Elier Jackson on 04-30-2023 Monocytes (Bld) [#/Vol] 0.3 10*3/uL 0.0-0.8 [facility] Monocytes/100 WBC Auto (Bld) Ordered By: Elier Jackson on 04-30-2023 Monocytes/100 WBC (Bld) 7.0 % . [facility] Neutrophils Auto (Bld) [#/Vo l]Ordered By: Elier Jackson on 04-30-2023 Neutrophils (Bld) [#/Vol] 1.7 10*3/uL 1.8-7.7 [facility] Neutrophils/100 WBC Auto (Bl d)Ordered By: Elier Jackson on 04-30-2023 Neutrophils/100 WBC (Bld) 46.9 % . [facility] Nitrite Test strip Ql (U)Ord ered By: Elier Jackson on 04-30-2023 Nitrite Ql (U) Negative Negative [facility] No Panel InformationOrdered By: Elier Jackson on 04-30-2023 Estimated GFR (CKD-EPI) > 60.0 mL/Min [facility] Creatinine Clearance (Chem 107.67 [facility] Nucleated erythrocytes [Pres ence] in Blood by Automated countOrdered By: Elier Jackson on 04-30-2023 Nucleated RBC Auto Ql (Bld) 0.1 /100{WBC} 0-0.5 [facility] Platelet mean volume Auto (B ld) [Entitic vol]Ordered By: Elier Jackson on 04-30-2023 Platelet mean volume (Bld) [Entitic vol] 8.0 fL 6.3-10.7 [facility] Platelets Auto (Bld) [#/Vol] Ordered By: Elier Jackson on 04-30-2023 Platelets (Bld) [#/Vol] 415 10*3/uL 150-450 [facility] Potassium [Moles/volume] in Serum or PlasmaOrdered By: Elier Jackson on 04-30-2023 Potassium [Moles/Vol] 3.8 mmol/L 3.5-5.1 [facility] Protein Auto test strip (U) [Mass/Vol]Ordered By: Elier Jackson on 04-30-2023 Protein (U) [Mass/Vol] Negative Negative [facility] Protein [Mass/volume] in Ser um or PlasmaOrdered By: Elier Jackson on 04-30-2023 Protein [Mass/Vol] 7.6 g/dL 6.4-8.9 [facility] RBC Auto (Bld) [#/Vol]Ordere d By: Elier Jackson on 04-30-2023 RBC (Bld) [#/Vol] 3.68 10*6/uL 3.60-5.00 [facility] Serum or plasma albumin/glob ulin mass ratioOrdered By: Elier Jackson on 04-30-2023 Albumin/Globulin [Mass ratio] 1.3 {ratio} [facility] Serum or plasma anion gap de terminationOrdered By: Elier Jackson on 04-30-2023 Anion gap [Moles/Vol] 14.7 mmol/L 6.0-15.0 [facility] Serum or plasma non-glucuron idated bilirubin measurement (mass/volume)Ordered By: Elier Jackson on 04-30-2023 Bilirubin.indirect [Mass/Vol] 0.3 mg/dL [facility] Sodium [Moles/volume] in Ser um or PlasmaOrdered By: Elier Jackson on 04-30-2023 Sodium [Moles/Vol] 140 mmol/L 136-145 [facility] Specific gravity Auto test s trip (U) [Rel density]Ordered By: Elier Jackson on 04-30-2023 Specific gravity (U) [Rel density] 1.018 1.001-1.030 [facility] Squamous epithelial cells de tection in urine sediment by light microscopyOrdered By: Elier Jackson on 04-30-2023 Epithelial cells.squamous LM Ql (Urine sed) 0-1 [HPF] 0-2 [facility] US pelvic completeon [address] [facility] [address] [place] [id number] Ultrasound Report Signed Patient: Livia Noyola MR#: [id number] : 1985 Acct:[id number] Age/Sex: 38 / F ADM Date: 04/30/23 Loc: ER Room: Type: [facility] ER Attending Dr: Ordering Provider: Elier Jackson DO Date of Service: 04/30/23 US/US pelvic complete: L pelvic pain ([id number]) US/US transvaginal: LT PELVIC PAIN Copies to: [...] Betancur Jr., PariOEbenezer04/30/2023 6:24 PM Dictation Location: [place] [address] Tech: Brooke Hodge Transcribed By: [facility] 04/30/231823 Dictated By: Dennis Betancur Jr, DO 04/30/231820 Signed By: 04/30/231823 Normal [facility] Urea nitrogen [Mass/volume] in Serum or PlasmaOrdered By: Elier Jackson on 04-30-2023 Urea nitrogen [Mass/Vol] 6 mg/dL 7- [facility] Urine bacteria detection by automated methodOrdered By: Elier Jackson on 04-30-2023 Bacteria Auto Ql (U) None seen None Seen [facility] Urine clarity by refractomet ry automatedOrdered By: Elier Jackson on 04-30-2023 Clarity Refractometry automated (U) Clear Clear [facility] Urine glucose measurement by automated test strip (mass/volume)Ordered By: Elier Jackson on 04-30-2023 Glucose Auto test strip (U) [Mass/Vol] Normal mg/dL Normal [facility] Urine hemoglobin detection b y automated test stripOrdered By: Elier Manuel on 04-30-2023 Hemoglobin Auto test strip Ql (U) 2+ Negative [facility] Urine leukocyte esterase det ection by automated test stripOrdered By: Elier Jackson on 04-30-2023 Leukocyte esterase Auto test strip Ql (U) Negative Negative [facility] Urobilinogen Auto test strip (U) [Mass/Vol]Ordered By: Elier Jackson on 04-30-2023 Urobilinogen (U) [Mass/Vol] Normal mg/dL Normal [facility] WBC Auto (Bld) [#/Vol]Ordere d By: Elier Jackson on 04-30-2023 WBC (Bld) [#/Vol] 3.6 10*3/uL 3.8-11.6 [facility] pH Auto test strip (U)Ordere d By: Elier Jackson on 04-30-2023 pH (U) 5.5 [pH] 5.0-9.0 [facility] Auto Diffon 04-24-2023 Basophils/100 WBC (Bld) 0.3 % Normal 0.0-2.0 [facility] Comment on above: Order Comment: Order Added by Discern Expert. Performed By: #### 2 [id number] ####[facility] [id number] [place] [address] Basophils/Leukocytes Auto (Bld) [Pure # fraction] 0.0 E9/L Normal 0.0-0.2 [facility] Comment on above: Order Comment: Order Added by Discern Expert. Performed By: #### 2 [id number], [id number] ####[facility] [id number] [place] [address] Eosinophils/100 WBC (Bld) 0.9 % Normal 0.0-8.0 [facility] Comment on above: Order Comment: Order Added by Discern Expert. Performed By: #### 2 [id number], [id number] ####[facility] [id number] [place] [address] Eosinophils/Leukocytes Auto (Bld) [Pure # fraction] 0.0 E9/L Normal 0.0-0.5 [facility] Comment on above: Order Comment: Order Added by Discern Expert. Performed By: #### 2 [id number], [id number], [id number] ####[place] [address] [place] [address] Lymphocytes/100 WBC (Bld) 49.9 % Normal 14.0-50.0 [facility] Comment on above: Order Comment: Order Added by Lis Expert. Performed By: #### 2 [id number], [id number] ####[place] [place] [address] Lymphocytes/Leukocytes Auto (Bld) [Pure # fraction] 2.3 E9/L Normal 1.0-4.0 [facility] Comment on above: Order Comment: Order Added by Lis Expert. Performed By: #### 2 [id number], [id number], [id number], [id number] ####[address] [address] Monocytes/100 WBC (Bld) 7.1 % Normal 4.0-14.[address] [facility] Comment on above: Order Comment: Order Added by Lis Expert. Performed By: #### 2 [id number], [id number], [id number], [id number] ####[address] [address] Monocytes/Leukocytes Auto (Bld) [Pure # fraction] 0.3 E9/L Normal 0.2-1.0 [facility] Comment on above: Order Comment: Order Added by Lis Expert. Performed By: #### 2 677953, 0619413, 8199110, 82862027, [id number] ####[facility] [address] [place] [address] Neutrophils/100 WBC (Bld) 41.8 % Normal 36.0-75.0 [facility] Comment on above: Order Comment: Order Added by Discern Expert. Performed By: #### 2 899051, 4512793, 8262630, 99574455, [id number] ####[facility] [address] [place] [address] Neutrophils/Leukocytes Auto (Bld) [Pure # fraction] 2.0 E9/L Normal 2.0-7.5 [facility] Comment on above: Order Comment: Order Added by Discern Expert. Performed By: #### 2 068326, 8399271, 3410580, 59129041, [id number] ####[facility] [address] [place] [address] B hCG Qualon 04-24-2023 Beta HCG ( test) Ql Negative Normal [facility] Comment on above: Performed By: #### 2 885803, 3357230, 6450928, 72263894, 69253076 ####[facility] [address] [place] [address] BMPon 04-24-2023 Creatinine [Mass/Vol] 0.7 mg/dL Normal 0.5-1.3 [facility] Comment on above: Performed By: #### 2 441734, 9381995, 6885753, 53631120, 49468081 ####[facility] [address] [place] [address] Urea nitrogen [Mass/Vol] 6 mg/dL Normal 5-21 [facility] Comment on above: Performed By: #### 2 633649, 9336927, 7925183, 67113004, 79443052 ####[facility] [address] [place] [address] Urea nitrogen/Creatinine [Mass ratio] 9 No Units Low 10-20 [facility] Comment on above: Performed By: #### 2 045526, 0992724, 1137963, 02513026, 00136896 ####[facility] [address] [place] [address] Anion gap [Moles/Vol] 14 mmol/L Normal 6-16 [facility] Comment on above: Performed By: #### 2 247136, 5517315, 8326126, 17138867, 63049011 ####[facility] [address] [place] [address] Calcium [Mass/Vol] 9.4 mg/dL Normal 8.9-11.1 [facility] Comment on above: Performed By: #### 2 463487, 7134659, 3711383, 54920164, 06472546 ####[facility] [address] [place] [address] Chloride [Moles/Vol] 105 mmol/L Normal 101-111 [facility] Comment on above: Performed By: #### 2 767705, 8225835, 2970066, 76886634, 97259703 ####[facility] [address] [place] [address] CO2 [Moles/Vol] 23 mmol/L Normal 21-31 [facility] Comment on above: Performed By: #### 2 051907, 1704985, 5563531, 93382911, 27728470 ####[facility] [address] [place] [address] Glucose [Mass/Vol] 95 mg/dL Normal 55-199 [facility] Comment on above: Result Comment: If t his glucose result represents a fasting glucose, interpretation should refer to the following reference range: 55-99 mg/dL Performed By: #### 2 893815, 9942518, 5705129, 79264384, 54680791 ####[facility] [address] [place] [address] Potassium [Moles/Vol] 3.8 mmol/L Normal 3.5-5.3 [facility] Comment on above: Performed By: #### 2 282643, 8573210, 3645381, 74700665, 42387113 ####[facility] [address] [place] [address] Sodium [Moles/Vol] 138 mmol/L Normal 135-145 [facility] Comment on above: Performed By: #### 2 689733, 3294819, 4430320, 86610051, 01819880 ####[facility] [address] [place] [address] CBC w/ Auto Diffon 3 Erythrocyte distribution width (RBC) [Ratio] 15.9 % High 10.9-14.2 [facility] Comment on above: Performed By: #### 2 422306, 9297860, 4184212, 77843164, 94418277 ####[facility] [address] [place] [address] Hematocrit (Bld) [Volume fraction] 33.7 % Low 34.0-46.0 [facility] Comment on above: Performed By: #### 2 933291, 3323283, 3884283, 90979852, 01933934 ####[facility] [address] [place] [address] Hemoglobin (Bld) [Mass/Vol] 11.7 g/dL Low 12.0-16.0 [facility] Comment on above: Performed By: #### 2 695066, 6583914, 1331465, 16199724, 52413770 ####[facility] [address] [place] [address] MCH (RBC) [Entitic mass] 29.7 pg Normal 27.0-34.0 [facility] Comment on above: Performed By: #### 2 938444, 1933885, 5980438, 59571063, 76493519 ####[facility] [address] [place] [address] MCHC (RBC) [Mass/Vol] 34.7 g/dL Normal 31.4-36.0 [facility] Comment on above: Performed By: #### 2 039419, 2831088, 7523532, 71480357, 71150051 ####[facility] [address] [place] [address] MCV (RBC) [Entitic vol] 85.8 fL Normal 80.0-100.0 [facility] Comment on above: Performed By: #### 2 851981, 1083047, 2318252, 72175903, 76277408 ####[place] [address] [place] [address] Platelet mean volume (Bld) [Entitic vol] 8.2 fL Normal 6.4-10.8 [facility] Comment on above: Performed By: #### 2 021105, 2580065, 5271914, 09642210, 65212293 ####[address] [address] Platelets (Bld) [#/Vol] 398.0 E9/L Normal 150.0-500.0 [facility] Comment on above: Performed By: #### 2 383264, 9318664, 9406057, 82885862, 79483952 ####[address] [address] RBC (Bld) [#/Vol] 3.9 E12/L Low 4.3-5.9 [facility] Comment on above: Performed By: #### 2 663576, 5583842, 1612879, 92266185, 81438050 ####[address] [address] WBC corrected for nucl RBC Auto (Bld) [#/Vol] 4.7 E9/L Normal 4.0-11.0 [facility] Comment on above: Performed By: #### 2 802266, 9437966, 6349258, 19596071, 31787343 ####[address] [address] CHEMISTRYOrdered By: SYSTEM SYSTEM on 04-24-2023 Anion gap [Moles/Vol] 14 mmol/L Normal 6 - 16 mEq/L [facility] Calcium [Mass/Vol] 9.4 mg/dL Normal 8.9 - 11. 1 mg/dL [facility] Chloride [Moles/Vol] 105 mmol/L Normal 101 - 1 11 mmol/L [facility] CO2 [Moles/Vol] 23 mmol/L Normal 21 - 31 mmol/L [facility] Creatinine [Mass/Vol] 0.7 mg/dL Normal 0.5 - 1.3 mg/dL [facility]isol GFR/1.73 sq M.predicted among non-blacks MDRD (S/P/Bld) [Vol rate/Area] 115 mL/min/1.73 m2 Normal >=59mL/min/1 .73 m2 [facility] Chem S Comment on above: Interpretive Data: C hronic kidney disease could be indicated at eGFR's of less than 60 mL/min/1.73m2. Kidney failure is indicated at less than 15 mL/min/1.73m2. Glucose [Mass/Vol] 95 mg/dL Normal 55 - 199 mg/dL [facility]isol Comment on above: Interpretive Data: I f this glucose result represents a fasting glucose, interpretation should refer to the following reference range: 55-99 mg/dL Potassium [Moles/Vol] 3.8 mmol/L Normal 3.5 - 5.3 mmol/L [facility] Sodium [Moles/Vol] 138 mmol/L Normal 135 - 145 mmol/L [facility] Remisol Urea nitrogen [Mass/Vol] 6 mg/dL Normal 5 - 21 mg/dL [facility] Remisol Urea nitrogen/Creatinine [Mass ratio] 9 mg/mg Low 10 - 20 [facility] Remisol CT Abdomen/Pelvis w/ Contras ton 04-24-2023 [...] 300 Contrast amount in ml's: 100 Normal [facility] Consent for Treatmenton 04-13 Consent for Treatment [id number] 31 [id number] #1.00TIFF Normal [facility] Discharge Instructionson Discharge Instructions [id number] 110 [id number] #1.00TIFF Normal [facility] ED Clinical Summaryon 2022 ED Clinical Summary [place] [id number] ED Clinical Summary Person Information Name: LIVIA NOYOLA/[facility] Age: 38 Years : 1985 Sex: Female Language: Sammarinese PCP: BETTIE MIRELES Marital Status: Visit Id: [...] 04/24/2023 16:04:18 ADDRESS: [address] [place] [id number] PHYS DOC NOTES: MEDICAL INFORMATION: Prescriptions Given: New Medications [facility]acy #[id number], [address] [place], [place] [id number], [phone] oxycodone (oxyCODONE 5 mg Cap) 1 Capsules [...] up: With: Address: When: YOUR OBGYN at [facility] In 3 days 04/27/2023 Comments: Seek [...] Abdominal pain, acute, left lower quadrant Normal [facility] ED Note-Physicianon 04-24-20 ED Note-Physician Basic [...] I did review on clinic [facility]. She has a visit at [facility] for similar symptoms in the middle of [...] for home. She will follow-up with her [employer]. Return precautions were discussed. All questions were answered. The patient was discharged home. Assessment/Plan Abdominal pain, acute, left lower quadrant (R10.32: Left lower quadrant pain) Ordered: oxycodone, 5 mg = 1 cap(s), Oral, q6hr, PRN Pain 8-10, X 3 day(s), # 12 cap(s), Refills(s) 0, Pharmacy: [facility]/pharmacy #[id number], 165.1, cm, 04/24/23 13:32:00 EST, Height/Length [...] With When Contact Information YOUR OBGYN at [facility] In 3 days 04/27/2023 EST Additional [...] follow-up with (more content not included)... Normal [facility] Comment on above: Result Comment: Elec [...] these instructions at home: Medicines ? Take tdcx-ptj-clqfdew and prescription medicines only as told by [...] your condition for any changes. ? Take xihp-qkk-qnyflvm and prescription medicines only as told by [...] provider. Document Revised: 07/18/2020 Document Reviewed: 10/08/2019 [employer] Patient Education ? 2022 [employer] Normal [facility] ED Patient Summaryon 023 ED Patient Summary [place] [id number] Patient Discharge Instructions Person Information Name: LIVIA NOYOLA Age: 38 Years Arrival Date: 04/24/2023 13:12:30 Discharge Diagnosis: Abdominal pain, acute, left lower quadrant Primary Care Physician: BETTIE MIRELES Provider Information Primary Provider: Jignesh Dumont DO Advanced Diesel Locomotive Engineer:Shazia The exam and treatment you received in the Emergency Department were for an urgent problem and are not intended as complete care. It is important that you follow up with a doctor, nurse practitioner, or physician?s administrative support assistant for ongoing care. If your symptoms [...] Instructions: With: Address: When: YOUR OBGYN at [facility] In 3 days 04/27/2023 Comments: Seek [...] opioids can be used to help relieve iwlkibci-fx-dihjbp pain and are often prescribed following a [...] Talk about (more content not included)... Normal [facility] HEMATOLOGYOrdered By: Parchment SYSTEM on 04-24-2023 Basophils/100 WBC (Bld) 0.3 [...] test) Ql Negative (04/24/23 1:55 PM) Normal [facility] Man Sero UA With Cult Reflexon 2022 Bacteria LM Ql (Urine sed) TRACE Normal Trace [facility] Comment on above: Performed By: #### 1 [id number] ####[facility] [address] [place] [address] Bilirubin Ql (U) Negative Normal Negative [facility] Comment on above: Performed By: #### 1 9541093 ####[facility] [address] [place] [address] Clarity (U) CLEAR Normal Clear [facility] Comment on above: Performed By: #### 1 2660871 ####[facility] [address] [place] [address] Color (U) STRAW Abnormal Yellow [facility] Comment on above: Performed By: #### 1 2722772 ####[address] [address] Epithelial cells.squamous LM.HPF (Urine sed) [#/Area] 3-4 Normal 0-2 [facility] Comment on above: Performed By: #### 1 6943218 ####[address] [place] [address] Glucose Test strip (U) [Mass/Vol] Negative Normal Negative [facility] Comment on above: Performed By: #### 1 4778770 ####[address] [address] Hemoglobin Ql (U) Negative Normal Negative [facility] Comment on above: Performed By: #### 1 2577900 ####[address] [address] Ketones (U) [Mass/Vol] Negative Normal Negative [facility] Comment on above: Performed By: #### 1 3415316 ####[address] [address] Igo.plasma/Igo. RBC (Bld) [Mass ratio] 0-3 Normal 0-3 [facility] Comment on above: Performed By: #### 1 0060936 ####[address] [address] Nitrite Ql (U) Negative Normal Negative [facility] Comment on above: Performed By: #### 1 9252348 ####[address] [address] pH (U) 7.0 [pH] Invalid Interpretation Code 5.0-9.0 [facility] Comment on above: Performed By: #### 1 3477643 ####[address] [address] Protein (U) [Mass/Vol] Negative Normal Negative [facility] Comment on above: Performed By: #### 1 0218016 ####[address] [address] Specific gravity (U) [Rel density] <=1.005 Invalid Interpretation Code 1.005-1.030 [facility] Comment on above: Performed By: #### 1 7477870 ####[facility] [address] [place] [address] Type of Urine collection method Clean Catch Normal [facility] Comment on above: Performed By: #### 1 7409812 ####[facility] [address] [place] [address] Urobilinogen Qn (U) 0.2 {Ivone'U}/dL Normal 0.0-1.0 [facility] Comment on above: Performed By: #### 1 6570381 ####[facility] [address] [place] [address] WBC Auto Ql (U) TRACE Abnormal Negative [facility] Comment on above: Performed By: #### 1 0686571 ####[facility] [address] [place] [address] WBC LM.HPF (Urine sed) [#/Area] 0-5 Normal 0-5 [facility] Comment on above: Performed By: #### 1 6395638 ####[facility] [address] [place] [address] URINALYSISOrdered By: Chance Guthrie on 04-24-2023 Bacteria [...] PM) Normal Negative [facility] UA Auto SS Igo.plasma/Igo. RBC (Bld) [Mass ratio] 0-3 /HPF Normal [...] [facility] UA Auto SS Urobilinogen Qn (U) 0.4276410 {Ivone'U}/dL Normal 0.0 - 1.0 EU/dL [facility] UA Auto SS WBC Auto Ql (U) Trace *ABN* (04/24/23 2:56 PM) Invalid Interpretation Code Negative [facility] UA Auto SS WBC LM.HPF (Urine sed) [#/Area] 0-5 /HPF Normal 0-5/HPF [facility] UA Auto SS eGFRon 04-24-2023 GFR/1.73 sq M.predicted among non-blacks MDRD (S/P/Bld) [Vol rate/Area] 115 mL/min/1.73 m2 Normal >=59 [facility] Comment on above: Order Comment: Order added by Discern Expert. Result Comment: Material Chaser franklin kidney disease could be indicated at eGFR's of less than 60 mL/min/1.73m2. Kidney failure is indicated at less than 15 mL/min/1.73m2. Performed By: #### 2 249183, 8878043, 3768586, 64506856, 67438580 ####[facility] [address] [place] [address] Anisocytosis LM Ql (Bld)Orde red By: Ming Childress on 04-02-2023 Anisocytosis Ql (Bld) Moderate [facility] Automated erythrocytes count in urine sediment (number/area)Ordered By: Ming Childress on 04-02-2023 RBC Auto (Urine sed) [#/Area] 20-49 [HPF] 0-4 [facility] Automated leukocytes count i n urine sediment (number/area)Ordered By: Ming Childress on 04-02-2023 WBC Auto (Urine sed) [#/Area] 3-4 [HPF] 0-4 [facility] Basic Metabolic Panelon 03-14 Anion gap [Moles/Vol] 14.2 mmol/L Normal 6.0-15.0 [facility] Comment on above: Performed By: #### H CGQNT #### [facility] [address] Calcium [Mass/Vol] 9.2 mg/dL Normal 8.6-10.3 [facility] Comment on above: Performed By: #### H CGQNT #### [facility] [address] Chloride [Moles/Vol] 108 mmol/L High 98-107 [facility] Comment on above: Performed By: #### H CGQNT #### [facility] [address] CO2 [Moles/Vol] 18.5 mmol/L Low 21.0-31.[address] [facility] Comment on above: Performed By: #### H CGQNT #### [facility] [address] [place] [address] [place] Creatinine [Mass/Vol] 0.84 mg/dL Normal 0.60-1.20 [facility] Comment on above: Performed By: #### H CGQNT #### [facility] [address] [place] [address] [place] Creatinine Clr Calc Pharmacy 97.72 Normal [facility] Comment on above: Result Comment: PERF ORMED BY: [place] [address] PATHOLOGIST MASTER SHEET CLERK FARNAZ ZULETA M.D. Performed By: #### H CGQNT #### [facility] [address] [place] [address] [place] GFR/1.73 sq M.predicted MDRD (S/P/Bld) [Vol rate/Area] mL/min/{1.73_m2} Normal [facility] Comment on above: Performed By: #### H CGQNT #### [facility] [address] [place] [address] [place] Glucose [Mass/Vol] 94 mg/dL Normal 70-100 [facility] Comment on above: Result Comment: [place] Glucose Reference Range is dependent on time and content of last meal. Glucose of more than 200 mg/dL in a nonstressed, ambulatory subject supports the diagnosis of Diabetes Mellitus. ADA recommended reference range Performed By: #### H CGQNT #### [facility] [address] [place] [address] [place] Potassium [Moles/Vol] 3.7 mmol/L Normal 3.5-5.1 [facility] Comment on above: Performed By: #### H CGQNT #### [facility] [address] [place] [address] [place] Sodium [Moles/Vol] 137 mmol/L Normal 136-145 [facility] Comment on above: Performed By: #### H CGQNT #### [facility] [address] [place] [address] [place] Urea nitrogen [Mass/Vol] 9 mg/dL Normal 7-25 [facility] Comment on above: Performed By: #### H CGQNT #### [facility] [address] [place] [address] [place] Basophils Auto (Bld) [#/Vol] Ordered By: Ming Childress on 04-02-2023 Basophils (Bld) [#/Vol] N/A F [facility] Basophils/100 WBC Auto (Bld) Ordered By: Ming Childress on 04-02-2023 Basophils/100 WBC (Bld) N/A F [facility] Basophils/100 WBC Manual cnt (Bld)Ordered By: Ming Childress on 04-02-2023 Basophils/100 WBC (Bld) 1 % 0-2 F [facility] Bilirubin Test strip Ql (U)O rdered By: Ming Childress on 04-02-2023 Bilirubin Ql (U) Negative Negative [facility] Calcium [Mass/volume] in Ser um or PlasmaOrdered By: Ming Childress on 04-02-2023 Calcium [Mass/Vol] 9.2 mg/dL 8.6-10.3 [facility] Carbon dioxide, total [Moles /volume] in Serum or PlasmaOrdered By: Ming Childress on 04-02-2023 CO2 [Moles/Vol] 18.5 mmol/L 21.0-31.[address] [facility] Chloride [Moles/volume] in S binu or PlasmaOrdered By: Ming Childress on 04-02-2023 Chloride [Moles/Vol] 108 mmol/L 98-107 [facility] Color Auto (U)Ordered By: Carmen Childress on 04-02-2023 Color (U) Yellow Yellow [facility] Creatinine [Mass/volume] in Serum or PlasmaOrdered By: Ming Childress on 04-02-2023 Creatinine [Mass/Vol] 0.84 mg/dL 0.60-1.20 [facility] Diff and CBCon 04-02-2023 Anisocytosis Ql (Bld) Moderate Normal [facility] Comment on above: Performed By: #### H CGQNT #### [facility] [address] [place] [address] [place] Basophils/100 WBC (Bld) 1 % Normal 0-2 [facility] Comment on above: Performed By: #### H CGQNT #### [facility] [address] [place] [id number] [place] Eosinophils/100 WBC (Bld) 4 % High 1-3 [facility] Comment on above: Performed By: #### H CGQNT #### [facility] [address] [place] [address] [place] Erythrocyte distribution width (RBC) [Ratio] 15.2 % Normal 11.9-15.3 [facility] Comment on above: Performed By: #### H CGQNT #### [address] Hematocrit (Bld) [Volume fraction] 36.1 % Normal 34.0-46.4 [facility] Comment on above: Performed By: #### H CGQNT #### [address] Hemoglobin (Bld) [Mass/Vol] 11.5 g/dL Low 11.8-15.4 [facility] Comment on above: Performed By: #### H CGQNT #### [address] Hypochromasia Slight Normal [facility] Comment on above: Performed By: #### H CGQNT #### [address] Lymphocytes/100 WBC (Bld) 43 % High 18-42 [facility] Comment on above: Performed By: #### H CGQNT #### [address] MCH (RBC) [Entitic mass] 24.5 pg Low 24.7-34.3 [facility] Comment on above: Performed By: #### H CGQNT #### [address] MCV (RBC) [Entitic vol] 77.3 fL Low 80-100 [facility] Comment on above: Performed By: #### H CGQNT #### [address] Mean Corpuscular HGB Conc 31.8 g/dL Low 32.0-35.0 [facility] Comment on above: Performed By: #### H CGQNT #### [address] Monocytes/100 WBC (Bld) 18.83 % Normal 0.00-20.00 F [facility] Comment on above: Performed By: #### H CGQNT #### [address] Monocytes/100 WBC (Bld) 5 % Normal 2-11 [facility] Comment on above: Performed By: #### H CGQNT #### [facility] [address] [place] [address] [place] Nucleated Red Blood Cell 3 /100{WBC} High 0-0 [facility] Comment on above: Performed By: #### H CGQNT #### [facility] [address] [place] [address] [place] Ovalocytes Slight Normal [facility] Comment on above: Performed By: #### H CGQNT #### [facility] [address] [place] [address] Platelet Estimate Increased Normal Normal [facility] Comment on above: Performed By: #### H CGQNT #### [address] Platelet mean volume (Bld) [Entitic vol] 8.1 fL Normal 6.3-10.7 [facility] Comment on above: Result Comment: PERF ORMED BY: [place] [address] PATHOLOGIST MASTER SHEET CLERK FARNAZ ZULETA M.D. Performed By: #### H CGQNT #### [facility] [address] [place] [address] Platelet Morphology Normal Normal Normal [facility] Comment on above: Result Comment: PERF ORMED BY: [place] [address] PATHOLOGIST MASTER SHEET CLERK FARNAZ ZULETA M.D. Performed By: #### H CGQNT #### [facility] [address] [place] [address] [place] Platelets (Bld) [#/Vol] 492 10*3/uL High 150-450 [facility] Comment on above: Performed By: #### H CGQNT #### [facility] [address] [place] [address] [place] Poikilocytosis Slight Normal [facility] Comment on above: Performed By: #### H CGQNT #### [facility] [address] [place] [address] [place] Polychromasia Moderate Normal [facility] Comment on above: Performed By: #### H CGQNT #### [facility] [address] [place] [address] [place] RBC (Bld) [#/Vol] 4.67 10*6/uL Normal 3.60-5.00 [facility] Comment on above: Performed By: #### H CGQNT #### [address] Segmented neutrophils/100 WBC (Bld) 47 % Low 50-70 [facility] Comment on above: Performed By: #### H CGQNT #### [facility] [address] [place] [address] Smudge Cells Slight Normal [facility] Comment on above: Performed By: #### H CGQNT #### [address] Toxic Vacuolation Slight Normal [facility] Comment on above: Performed By: #### H CGQNT #### [facility] [address] [place] [address] WBC (Bld) [#/Vol] 6.8 10*3/uL Normal 3.8-11.6 [facility] Comment on above: Performed By: #### H CGQNT #### [facility] [address] [place] [address] [place] Dipstick and Microscopicon 1 Appearance (U) Clear Normal Clear [facility] Comment on above: Order Comment: Name Collection Type:: Clean-Voided Midstream Performed By: #### U HCG, ADDONUAPLUS #### [facility] [address] [place] [address] [place] Bacteria,Urine None Seen Normal None Seen [facility] Comment on above: Order Comment: Name Collection Type:: Clean-Voided Midstream Performed By: #### U HCG, ADDONUAPLUS #### [place] [address] [place] Bilirubin,Urine Negative Normal Negative [facility] Comment on above: Order Comment: Name Collection Type:: Clean-Voided Midstream Performed By: #### U HCG, ADDONUAPLUS #### [facility] [address] [place] [address] [place] Color (U) Yellow Normal Yellow [facility] Comment on above: Order Comment: Name Collection Type:: Clean-Voided Midstream Performed By: #### U HCG, ADDONUAPLUS #### [facility] [address] [place] [address] [place] Glucose Ql (U) Normal Normal Normal [facility] Comment on above: Order Comment: Name Collection Type:: Clean-Voided Midstream Performed By: #### U HCG, ADDONUAPLUS #### [facility] [address] [place] [address] [place] Hyaline Casts,Urine 0-8 Normal 0-8 [facility] Comment on above: Order Comment: Name Collection Type:: Clean-Voided Midstream Performed By: #### U HCG, ADDONUAPLUS #### [facility] [address] [place] [address] [place] Ketones Ql (U) Trace High Negative [facility] Comment on above: Order Comment: Name Collection Type:: Clean-Voided Midstream Performed By: #### U HCG, ADDONUAPLUS #### [place] [address] [place] Leukocyte esterase Test strip Ql (U) 1+ High Negative [facility] Comment on above: Order Comment: Name Collection Type:: Clean-Voided Midstream Performed By: #### U HCG, ADDONUAPLUS #### [facility] [address] [place] [address] [place] Nitrite,Urine Negative Normal Negative [facility] Comment on above: Order Comment: Name Collection Type:: Clean-Voided Midstream Performed By: #### U HCG, ADDONUAPLUS #### [place] [address] [place] Occult Blood,Urine 3+ High Negative [facility] Comment on above: Order Comment: Name Collection Type:: Clean-Voided Midstream Performed By: #### U HCG, ADDONUAPLUS #### [facility] [address] [place] [address] pH (U) 6.0 [pH] Normal 5.0-9.0 [facility] Comment on above: Order Comment: Name Collection Type:: Clean-Voided Midstream Performed By: #### U HCG, ADDONUAPLUS #### [facility] [address] [place] [address] Protein,Urine Negative Normal Negative [facility] Comment on above: Order Comment: Name Collection Type:: Clean-Voided Midstream Performed By: #### U HCG, ADDONUAPLUS #### [address] RBC,Urine 20-49 High 0-4 [facility] Comment on above: Order Comment: Name Collection Type:: Clean-Voided Midstream Performed By: #### U HCG, ADDONUAPLUS #### [address] Specificy [place],Urine 1.018 Normal 1.001-1.030 [facility] Comment on above: Order Comment: Name Collection Type:: Clean-Voided Midstream Performed By: #### U HCG, ADDONUAPLUS #### [address] Squamous Epithelial Cell,Urine 3-4 High 0-2 [facility] Comment on above: Order Comment: Name Collection Type:: Clean-Voided Midstream Performed By: #### U HCG, ADDONUAPLUS #### [facility] [address] [place] [address] Urobilinogen,Urine Normal Normal Normal [facility] Comment on above: Order Comment: Name Collection Type:: Clean-Voided Midstream Performed By: #### U HCG, ADDONUAPLUS #### [address] WBC,Urine 3-4 Normal 0-4 [facility] Comment on above: Order Comment: Name Collection Type:: Clean-Voided Midstream Performed By: #### U HCG, ADDONUAPLUS #### [address] [place] [address] [place] Eosinophils Auto (Bld) [#/Vo l]Ordered By: Ming Childress on 04-02-2023 Eosinophils (Bld) [#/Vol] N/A [facility] Eosinophils/100 WBC Auto (Bl d)Ordered By: Ming Childress on 04-02-2023 Eosinophils/100 WBC (Bld) N/A [facility] Eosinophils/100 WBC Manual c nt (Bld)Ordered By: Ming Childress on 04-02-2023 Eosinophils/100 WBC (Bld) 4 % 1-3 [facility] Erythrocyte distribution wid th Auto (RBC) [Ratio]Ordered By: Ming Childress on 04-02-2023 Erythrocyte distribution width (RBC) [Ratio] 15.2 % 11.9-15.3 [facility] Glucose [Mass/volume] in Ser um or PlasmaOrdered By: Ming Childress on 04-02-2023 Glucose [Mass/Vol] 94 mg/dL 70-100 [facility] Comment on above: ADA recommended refe rence rangeRandom Glucose Reference Range is dependent on time and content of last meal. Glucose of more than 200 mg/dL in a nonstressed, ambulatory subject supports the diagnosis of Diabetes Mellitus. HCG ( test) IA.rapi d Ql (U)Ordered By: Ming Childress on 04-02-2023 HCG ( test) Ql (U) Negative [facility] HCG,Urineon 04-02-2023 Beta HCG ( test) Ql (U) Negative Normal [facility] Comment on above: Order Comment: Name Collection Type:: Clean-Voided Midstream Result Comment: PERF ORMED BY: [facility] [address] [place] [address] PATHOLOGIST MASTER SHEET CLERK FARNAZ ZULETA M.D. Performed By: #### U HCG, ADDONUAPLUS #### [facility] [address] [place] [address] Hematocrit Auto (Bld) [Volum e fraction]Ordered By: Ming Childress on 04-02-2023 Hematocrit (Bld) [Volume fraction] 36.1 % 34.0-46.4 [facility] Hemoglobin [Mass/volume] in BloodOrdered By: Ming Childress on 04-02-2023 Hemoglobin (Bld) [Mass/Vol] 11.5 g/dL 11.8-15.4 [facility] Hypochromia LM Ql (Bld)Order ed By: Ming Childress on 04-02-2023 Hypochromia Ql (Bld) Slight [facility] Ketones Auto test strip (U) [Mass/Vol]Ordered By: Ming Childress on 04-02-2023 Ketones (U) [Mass/Vol] Trace Negative [facility] - UrinalysisOrder ed By: Ming Childress on 04-02-2023 Hyaline casts LM Ql (Urine sed) 0-8 [LPF] 0-8 [facility] Leukocytes [#/volume] correc flo for nucleated erythrocytes in Blood by Automated counOrdered By: Ming Childress on 04-02-2023 WBC corrected for nucl RBC Auto (Bld) [#/Vol] 6.8 10*3/uL 3.8-11.6 [facility] Lymphocytes Auto (Bld) [#/Vo l]Ordered By: Ming Childress on 04-02-2023 Lymphocytes (Bld) [#/Vol] N/A [facility] Lymphocytes/100 WBC Auto (Bl d)Ordered By: Ming Childress on 04-02-2023 Lymphocytes/100 WBC (Bld) N/A [facility] Lymphocytes/100 WBC Manual c nt (Bld)Ordered By: Ming Childress on 04-02-2023 Lymphocytes/100 WBC (Bld) 43 % 18-42 [facility] MCH Auto (RBC) [Entitic mass ]Ordered By: Ming Childress on 04-02-2023 MCH (RBC) [Entitic mass] 24.5 pg 24.7-34.3 [facility] MCHC Auto (RBC) [Mass/Vol]Or dered By: Ming Childress on 04-02-2023 MCHC (RBC) [Mass/Vol] 31.8 g/dL 32.0-35.0 [facility] MCV Auto (RBC) [Entitic vol] Ordered By: Ming Childress on 04-02-2023 MCV (RBC) [Entitic vol] 77.3 fL 80-100 [facility] Monocyte distribution width [Entitic volume] in Blood by AutomatedOrdered By: Ming Childress on 04-02-2023 Monocyte distribution width Auto (Bld) [Entitic vol] 18.83 % 0.00-20.00 [facility] Monocytes Auto (Bld) [#/Vol] Ordered By: Ming Childress on 04-02-2023 Monocytes (Bld) [#/Vol] N/A [facility] Monocytes/100 WBC Auto (Bld) Ordered By: Ming Childress on 04-02-2023 Monocytes/100 WBC (Bld) N/A [facility] Monocytes/100 WBC Manual cnt (Bld)Ordered By: Ming Childress on 04-02-2023 Monocytes/100 WBC (Bld) 5 % 2-11 [facility] Neutrophils Auto (Bld) [#/Vo l]Ordered By: Ming Childress on 04-02-2023 Neutrophils (Bld) [#/Vol] N/A [facility] Neutrophils/100 WBC Auto (Bl d)Ordered By: Ming Childress on 04-02-2023 Neutrophils/100 WBC (Bld) N/A [facility] Nitrite Test strip Ql (U)Ord ered By: Ming Childress on 04-02-2023 Nitrite Ql (U) Negative Negative [facility] No Panel InformationOrdered By: Ming Childress on 04-02-2023 Estimated GFR (CKD-EPI) > 60.0 mL/Min [facility] Creatinine Clearance (Chem 97.72 [facility] Nucleated RBC/100 WBC Manual cnt (Bld) [Ratio]Ordered By: Ming Childress on 04-02-2023 Nucleated RBC/100 WBC (Bld) [Ratio] 3 /100{WBC} 0-0 [facility] Nucleated erythrocytes [Pres ence] in Blood by Automated countOrdered By: Ming Childress on 04-02-2023 Nucleated RBC Auto Ql (Bld) N/A [facility] Ovalocyte detectionOrdered B y: Ming Childress on 04-02-2023 Ovalocytes LM Ql (Bld) Slight Fi [facility] Platelet adequacy [Presence] in Blood by Light microscopyOrdered By: Ming Childress on 04-02-2023 Platelets LM Ql (Bld) Increased Normal [facility] Platelet mean volume Auto (B ld) [Entitic vol]Ordered By: Ming Childress on 04-02-2023 Platelet mean volume (Bld) [Entitic vol] 8.1 fL 6.3-10.7 [facility] Platelet morphology finding [Identifier] in BloodOrdered By: Ming Childress on 04-02-2023 Platelet morphology finding Nom (Bld) Normal Normal [facility] Platelets Auto (Bld) [#/Vol] Ordered By: Ming Childress on 04-02-2023 Platelets (Bld) [#/Vol] 492 10*3/uL 150-450 [facility] Poikilocytosis [Presence] in Blood by Light microscopyOrdered By: Ming Childress on 04-02-2023 Poikilocytosis LM Ql (Bld) Slight [facility] Polychromasia [Presence] in Blood by Light microscopyOrdered By: Ming Childress on 04-02-2023 Polychromasia LM Ql (Bld) Moderate [facility] Potassium [Moles/volume] in Serum or PlasmaOrdered By: Ming Childress on 04-02-2023 Potassium [Moles/Vol] 3.7 mmol/L 3.5-5.1 [facility] Protein Auto test strip (U) [Mass/Vol]Ordered By: Ming Childress on 04-02-2023 Protein (U) [Mass/Vol] Negative Negative Fi [facility] RBC Auto (Bld) [#/Vol]Ordere d By: Ming Childress on 04-02-2023 RBC (Bld) [#/Vol] 4.67 10*6/uL 3.60-5.00 [facility] RBC morphologyOrdered By: Carmen Childress on 04-02-2023 RBC morphology finding Nom (Bld) N/A [facility] Segmented neutrophils/100 WB C Manual cnt (Bld)Ordered By: Ming Childress on 04-02-2023 Segmented neutrophils/100 WBC (Bld) 47 % 50-70 [facility] Serum or plasma anion gap de terminationOrdered By: Ming Childress on 04-02-2023 Anion gap [Moles/Vol] 14.2 mmol/L 6.0-15.0 [facility] Smudge cell detectionOrdered By: Ming Childress on 04-02-2023 Smudge cells LM Ql (Bld) Slight [facility] Sodium [Moles/volume] in Ser um or PlasmaOrdered By: Ming Childress on 04-02-2023 Sodium [Moles/Vol] 137 mmol/L 136-145 [facility] Specific gravity Auto test s trip (U) [Rel density]Ordered By: Ming Childress on 04-02-2023 Specific gravity (U) [Rel density] 1.018 1.001-1.030 [facility] Squamous epithelial cells de tection in urine sediment by light microscopyOrdered By: Ming Childress on 04-02-2023 Epithelial cells.squamous LM Ql (Urine sed) 3-4 [HPF] 0-2 [facility] Toxic leukocyte vacuolation detectionOrdered By: Ming Childress on 04-02-2023 Leukocyte toxic vacuoles LM Ql (Bld) Slight [facility] Urea nitrogen [Mass/volume] in Serum or PlasmaOrdered By: Ming Childress on 04-02-2023 Urea nitrogen [Mass/Vol] 9 mg/dL 7-25 [facility] Urine bacteria detection by automated methodOrdered By: Ming Childress on 04-02-2023 Bacteria Auto Ql (U) None seen None Seen [facility] Urine clarity by refractomet ry automatedOrdered By: Ming Childress on 04-02-2023 Clarity Refractometry automated (U) Clear Clear [facility] Urine glucose measurement by automated test strip (mass/volume)Ordered By: Ming Childress on 04-02-2023 Glucose Auto test strip (U) [Mass/Vol] Normal mg/dL Normal [facility] Urine hemoglobin detection b y automated test stripOrdered By: Ming Childress on 04-02-2023 Hemoglobin Auto test strip Ql (U) 3+ Negative [facility] Urine leukocyte esterase det ection by automated test stripOrdered By: Ming Childress on 04-02-2023 Leukocyte esterase Auto test strip Ql (U) 1+ Negative [facility] Urobilinogen Auto test strip (U) [Mass/Vol]Ordered By: Ming Childress on 04-02-2023 Urobilinogen (U) [Mass/Vol] Normal mg/dL Normal [facility] WBC Auto (Bld) [#/Vol]Ordere d By: Ming Childress on 04-02-2023 WBC (Bld) [#/Vol] 6.8 10*3/uL 3.8-11.6 [facility] pH Auto test strip (U)Ordere d By: Ming Childress on 04-02-2023 pH (U) 6.0 [pH] 5.0-9.0 [facility] Alanine aminotransferase [En zymatic activity/volume] in Serum or PlasmaOrdered By: Ming Childress on 03-29-2023 ALT [Catalytic activity/Vol] 14 U/L 7 [facility] Albumin [Mass/volume] in Ser um or Plasma by Bromocresol green (BCG) dye binding methoOrdered By: Ming Childress on 03-29-2023 Albumin BCG dye [Mass/Vol] 4.0 g/dL 3.5-5.7 [facility] Alkaline phosphatase [Enzyma tic activity/volume] in Serum or PlasmaOrdered By: Ming Childress on 03-29-2023 ALP [Catalytic activity/Vol] 61 U/L 34-104 [facility] Aspartate aminotransferase [ Enzymatic activity/volume] in Serum or PlasmaOrdered By: Ming Childress on 03-29-2023 AST [Catalytic activity/Vol] 19 U/L 13-39 [facility] Basic Metabolic Panelon 03-13 Anion gap [Moles/Vol] 12.4 mmol/L Normal 6.0-15.0 [facility] Comment on above: Performed By: #### B MP, LIPASE, HEPATIC #### [facility] [address] [place] [address] [place] Calcium [Mass/Vol] 8.9 mg/dL Normal 8.6-10.3 [facility] Comment on above: Performed By: #### B MP, LIPASE, HEPATIC #### [facility] [address] [place] [address] [place] Chloride [Moles/Vol] 107 mmol/L Normal 98-107 [facility] Comment on above: Performed By: #### B MP, LIPASE, HEPATIC #### [facility] [address] [place] [address] [place] CO2 [Moles/Vol] 22.2 mmol/L Normal 21.0-31.[address] [facility] Comment on above: Performed By: #### B MP, LIPASE, HEPATIC #### [facility] [address] Creatinine [Mass/Vol] 0.63 mg/dL Normal 0.60-1.20 [facility] Comment on above: Performed By: #### B MP, LIPASE, HEPATIC #### [facility] [address] [place] [address] [place] Creatinine Clr Calc Pharmacy 134.47 [facility] Comment on above: Performed By: #### B MP, LIPASE, HEPATIC #### [facility] [address] [place] [address] [place] GFR/1.73 sq M.predicted MDRD (S/P/Bld) [Vol rate/Area] mL/min/{1.73_m2} [facility] Comment on above: Performed By: #### B MP, LIPASE, HEPATIC #### [facility] [address] [place] [address] [place] Glucose [Mass/Vol] 90 mg/dL Normal 70-100 [facility] Comment on above: Result Comment: [place] Glucose Reference Range is dependent on time and content of last meal. Glucose of more than 200 mg/dL in a nonstressed, ambulatory subject supports the diagnosis of Diabetes Mellitus. ADA recommended reference range Performed By: #### B MP, LIPASE, HEPATIC #### [facility] [address] [place] [id number] [place] Potassium [Moles/Vol] 3.6 mmol/L Normal 3.5-5.1 [facility] Comment on above: Performed By: #### B MP, LIPASE, HEPATIC #### [facility] [address] Sodium [Moles/Vol] 138 mmol/L Normal 136-145 [facility] Comment on above: Performed By: #### B MP, LIPASE, HEPATIC #### [facility] [address] Urea nitrogen [Mass/Vol] 6 mg/dL Low 7-25 [facility] Comment on above: Performed By: #### B MP, LIPASE, HEPATIC #### [facility] [address] [place] [address] [place] Basophils Auto (Bld) [#/Vol] Ordered By: Ming Childress on 03-29-2023 Basophils (Bld) [#/Vol] 0.1 10*3/uL 0.0-0.2 [facility] Basophils/100 WBC Auto (Bld) Ordered By: Ming Childress on 03-29-2023 Basophils/100 WBC (Bld) 1.3 % . [facility] Bilirubin Test strip Ql (U)O rdered By: Ming Childress on 03-29-2023 Bilirubin Ql (U) Negative Negative [facility] Bilirubin.direct [Mass/volum e] in Serum or PlasmaOrdered By: Ming Childress on 03-29-2023 Bilirubin.direct [Mass/Vol] 0.10 mg/dL 0.03-0.18 [facility] Bilirubin.total [Mass/volume ] in Serum or PlasmaOrdered By: Ming Childress on 03-29-2023 Bilirubin [Mass/Vol] 0.3 mg/dL 0.3-1.0 [facility] CT abdomen pelvis w conon CT abdomen pelvis w con [facility] [address] [place] [address] [place] [address] CT Scan Report Signed Patient: Livia Noyola MR#: [id number] : 1985 Acct:[id number] Age/Sex: 38 / F ADM Date: 03/29/23 Loc: 3T Room: [address] [place] [address] Type: ADM IN Attending Dr: Christi Aquino [...] Alesha Tejada M.D.03/29/2023 7:14 AM Dictation Location: [place] [address] Transcribed By: [facility] 03/29/23713 Dictated By: Alesha Tejada MD 03/29/2310 Signed By: 03/29/23713 [facility] Calcium [Mass/volume] in Ser um or PlasmaOrdered By: Ming Childress on 03-29-2023 Calcium [Mass/Vol] 8.9 mg/dL 8.6-10.3 [facility] Carbon dioxide, total [Moles /volume] in Serum or PlasmaOrdered By: Ming Childress on 03-29-2023 CO2 [Moles/Vol] 22.2 mmol/L 21.0-31.[address] [facility] Chloride [Moles/volume] in S binu or PlasmaOrdered By: Ming Childress on 03-29-2023 Chloride [Moles/Vol] 107 mmol/L 98-107 [facility] Color Auto (U)Ordered By: Carmen Childress on 03-29-2023 Color (U) Yellow Yellow [facility] Complete Blood Count Auto Di ffon 03-29-2023 Basophils (Bld) [#/Vol] 0.1 10*3/uL Normal 0.0-0.2 [facility] Comment on above: Result Comment: PERF ORMED BY: [place] [address] PATHOLOGIST MASTER SHEET CLERK FARNAZ ZULETA M.D. Performed By: #### C BC #### [facility] [address] Basophils/100 WBC (Bld) 1.3 % Normal . [facility] Comment on above: Performed By: #### C BC #### [facility] [address] [place] [address] [place] Eosinophils (Bld) [#/Vol] 0.1 10*3/uL Normal 0.0-0.45 [facility] Comment on above: Performed By: #### C BC #### [facility] [address] [place] [address] [place] Eosinophils/100 WBC (Bld) 1.8 % Normal . [facility] Comment on above: Performed By: #### C BC #### [facility] [address] Erythrocyte distribution width (RBC) [Ratio] 15.2 % Normal 11.9-15.3 [facility] Comment on above: Performed By: #### C BC #### [facility] [address] Hematocrit (Bld) [Volume fraction] 32.6 % Low 34.0-46.4 [facility] Comment on above: Performed By: #### C BC #### [address] Hemoglobin (Bld) [Mass/Vol] 10.4 g/dL Low 11.8-15.4 [facility] Comment on above: Performed By: #### C BC #### [address] Lymphocytes (Bld) [#/Vol] 3.2 10*3/uL Normal 1.00-4.8 [facility] Comment on above: Performed By: #### C BC #### [address] Lymphocytes/100 WBC (Bld) 42.8 % Normal . [facility] Comment on above: Performed By: #### C BC #### [address] MCH (RBC) [Entitic mass] 24.1 pg Low 24.7-34.3 [facility] Comment on above: Performed By: #### C BC #### [address] MCV (RBC) [Entitic vol] 75.2 fL Low 80-100 [facility] Comment on above: Performed By: #### C BC #### [address] Mean Corpuscular HGB Conc 32.0 g/dL Normal 32.0-35.0 [facility] Comment on above: Performed By: #### C BC #### [address] Monocytes (Bld) [#/Vol] 0.6 10*3/uL Normal 0.0-0.8 [facility] Comment on above: Performed By: #### C BC #### [address] [place] [address] [place] Monocytes/100 WBC (Bld) 7.3 % Normal . [facility] Comment on above: Performed By: #### C BC #### [facility] [address] Neutrophils (Bld) [#/Vol] 3.5 10*3/uL Normal 1.8-7.7 [facility] Comment on above: Performed By: #### C BC #### [facility] [address] Neutrophils/100 WBC (Bld) 46.8 % Normal . [facility] Comment on above: Performed By: #### C BC #### [address] NRBC% 0.1 /100{WBC} Normal 0-0.5 [facility] Comment on above: Performed By: #### C BC #### [address] Platelet mean volume (Bld) [Entitic vol] 8.0 fL Normal 6.3-10.7 [facility] Comment on above: Performed By: #### C BC #### [place] [address] [place] Platelets (Bld) [#/Vol] 396 10*3/uL Normal 150-450 [facility] Comment on above: Performed By: #### C BC #### [place] [address] [place] RBC (Bld) [#/Vol] 4.34 10*6/uL Normal 3.60-5.00 [facility] Comment on above: Performed By: #### C BC #### [place] [address] [place] WBC (Bld) [#/Vol] 7.5 10*3/uL Normal 3.8-11.6 [facility] Comment on above: Performed By: #### C BC #### [place] [address] [place] Creatinine [Mass/volume] in Serum or PlasmaOrdered By: Ming Childress on 03-29-2023 Creatinine [Mass/Vol] 0.63 mg/dL 0.60-1.20 [facility] Eosinophils Auto (Bld) [#/Vo l]Ordered By: Ming Childress on 03-29-2023 Eosinophils (Bld) [#/Vol] 0.1 10*3/uL 0.0-0.45 [facility] Eosinophils/100 WBC Auto (Bl d)Ordered By: Ming Childress on 03-29-2023 Eosinophils/100 WBC (Bld) 1.8 % . [facility] Erythrocyte distribution wid th Auto (RBC) [Ratio]Ordered By: Ming Childress on 03-29-2023 Erythrocyte distribution width (RBC) [Ratio] 15.2 % 11.9-15.3 [facility] Globulin Calc (S) [Mass/Vol] Ordered By: Ming Childress on 03-29-2023 Globulin (S) [Mass/Vol] 2.8 g/dL [facility] Glucose [Mass/volume] in Ser um or PlasmaOrdered By: Ming Childress on 03-29-2023 Glucose [Mass/Vol] 90 mg/dL 70-100 [facility] Comment on above: ADA recommended refe rence rangeRandom Glucose Reference Range is dependent on time and content of last meal. Glucose of more than 200 mg/dL in a nonstressed, ambulatory subject supports the diagnosis of Diabetes Mellitus. HCG ( test) IAbebeto d Ql (U)Ordered By: Ming Childress on 03-29-2023 HCG ( test) Ql (U) Negative [facility] HCG,Urineon 03-29-2023 Beta HCG ( test) Ql (U) Negative Normal [facility] Comment on above: Order Comment: Name Collection Type:: Clean-Voided Midstream Result Comment: PERF ORMED BY: [place] [address] PATHOLOGIST MASTER SHEET CLERK FARNAZ ZULETA M.D. Performed By: #### H CGQNT #### [facility] [address] [place] [address] [place] Hematocrit Auto (Bld) [Volum e fraction]Ordered By: Ming Arangoarthy on 03-29-2023 Hematocrit (Bld) [Volume fraction] 32.6 % 34.0-46.4 [facility] Hemoglobin [Mass/volume] in BloodOrdered By: Ming Wagnery on 03-29-2023 Hemoglobin (Bld) [Mass/Vol] 10.4 g/dL 11.8-15.4 [facility] Hepatic Panelon 03-29-2023 Albumin [Mass/Vol] 4.0 g/dL Normal 3.5-5.7 [facility] Comment on above: Performed By: #### B MP, LIPASE, HEPATIC #### [facility] [address] Albumin/Globulin [Mass ratio] 1.4 {ratio} Normal [facility] Comment on above: Performed By: #### B MP, LIPASE, HEPATIC #### [facility] [address] ALP [Catalytic activity/Vol] 61 U/L Normal 34-104 [facility] Comment on above: Performed By: #### B MP, LIPASE, HEPATIC #### [facility] [address] ALT [Catalytic activity/Vol] 14 U/L Normal 7-52 [facility] Comment on above: Performed By: #### B MP, LIPASE, HEPATIC #### [facility] [address] AST [Catalytic activity/Vol] 19 U/L Normal 13-39 [facility] Comment on above: Performed By: #### B MP, LIPASE, HEPATIC #### [facility] [address] [place] [address] [place] Bilirubin [Mass/Vol] 0.3 mg/dL Normal 0.3-1.0 [facility] Comment on above: Performed By: #### B MP, LIPASE, HEPATIC #### [facility] [address] [place] [address] [place] Bilirubin,Indirect 0.2 mg/dL Normal [facility] Comment on above: Performed By: #### B MP, LIPASE, HEPATIC #### [facility] [address] Bilirubin.indirect [Mass/Vol] 0.10 mg/dL Normal 0.03-0.18 [facility] Comment on above: Performed By: #### B MP, LIPASE, HEPATIC #### [facility] [address] Globulin (S) [Mass/Vol] 2.8 g/dL Normal [facility] Comment on above: Performed By: #### B MP, LIPASE, HEPATIC #### [facility] [address] Protein [Mass/Vol] 6.8 g/dL Normal 6.4-8.9 [facility] Comment on above: Performed By: #### B MP, LIPASE, HEPATIC #### [facility] [address] Ketones Auto test strip (U) [Mass/Vol]Ordered By: Ming Childress on 03-29-2023 Ketones (U) [Mass/Vol] Negative Negative [facility] Lactate [Moles/volume] in Se rum or PlasmaOrdered By: Megan Muniz on 03-29-2023 Lactate [Moles/Vol] 0.8 mmol/L 0.5-2.2 [facility] Lactic Acidon 03-29-2023 Lactate [Moles/Vol] 0.8 mmol/L Normal 0.5-2.2 [facility] Comment on above: Result Comment: PERF ORMED BY: [place] [address] PATHOLOGIST MASTER SHEET CLERK FARNAZ ZULETA M.D. Performed By: #### C BC #### [facility] [address] Leukocytes [#/volume] correc flo for nucleated erythrocytes in Blood by Automated counOrdered By: Ming Childress on 03-29-2023 WBC corrected for nucl RBC Auto (Bld) [#/Vol] 7.5 10*3/uL 3.8-11.6 [facility] Lipaseon 03-29-2023 Lipase [Catalytic activity/Vol] 30.0 U/L Normal 11.0-82.0 [facility] Comment on above: Result Comment: PERF ORMED BY: [place] [address] PATHOLOGIST MASTER SHEET CLERK FARNAZ ZULETA M.D. Performed By: #### B MP, LIPASE, HEPATIC #### [address] Lipase [Enzymatic activity/v olume] in Serum or PlasmaOrdered By: Ming Childress on 03-29-2023 Lipase [Catalytic activity/Vol] 30.0 U/L 11.0-82.0 [facility] Lymphocytes Auto (Bld) [#/Vo l]Ordered By: Ming Childress on 03-29-2023 Lymphocytes (Bld) [#/Vol] 3.2 10*3/uL 1.00-4.8 [facility] Lymphocytes/100 WBC Auto (Bl d)Ordered By: Ming Childress on 03-29-2023 Lymphocytes/100 WBC (Bld) 42.8 % . [facility] MCH Auto (RBC) [Entitic mass ]Ordered By: Mnig Childress on 03-29-2023 MCH (RBC) [Entitic mass] 24.1 pg 24.7-34.3 [facility] MCHC Auto (RBC) [Mass/Vol]Or dered By: Ming Childress on 03-29-2023 MCHC (RBC) [Mass/Vol] 32.0 g/dL 32.0-35.0 [facility] MCV Auto (RBC) [Entitic vol] Ordered By: Ming Childress on 03-29-2023 MCV (RBC) [Entitic vol] 75.2 fL 80-100 [facility] Monocytes Auto (Bld) [#/Vol] Ordered By: Ming Childress on 03-29-2023 Monocytes (Bld) [#/Vol] 0.6 10*3/uL 0.0-0.8 [facility] Monocytes/100 WBC Auto (Bld) Ordered By: Ming Childress on 03-29-2023 Monocytes/100 WBC (Bld) 7.3 % . [facility] Neutrophils Auto (Bld) [#/Vo l]Ordered By: Ming Childress on 03-29-2023 Neutrophils (Bld) [#/Vol] 3.5 10*3/uL 1.8-7.7 [facility] Neutrophils/100 WBC Auto (Bl d)Ordered By: Ming Childress on 03-29-2023 Neutrophils/100 WBC (Bld) 46.8 % . [facility] Nitrite Test strip Ql (U)Ord ered By: Ming Childress on 03-29-2023 Nitrite Ql (U) Negative Negative [facility] No Panel InformationOrdered By: Ming Childress on 03-29-2023 Estimated GFR (CKD-EPI) > 60.0 mL/Min [facility]acy Creatinine Clearance (Chem 134.47 [facility] Nucleated erythrocytes [Pres ence] in Blood by Automated countOrdered By: Ming Childress on 03-29-2023 Nucleated RBC Auto Ql (Bld) 0.1 /100{WBC} 0-0.5 [facility] Platelet mean volume Auto (B ld) [Entitic vol]Ordered By: Ming Childress on 03-29-2023 Platelet mean volume (Bld) [Entitic vol] 8.0 fL 6.3-10.7 [facility] Platelets Auto (Bld) [#/Vol] Ordered By: Ming Childress on 03-29-2023 Platelets (Bld) [#/Vol] 396 10*3/uL 150-450 [facility] Potassium [Moles/volume] in Serum or PlasmaOrdered By: Ming Childress on 03-29-2023 Potassium [Moles/Vol] 3.6 mmol/L 3.5-5.1 [facility] Protein Auto test strip (U) [Mass/Vol]Ordered By: Ming Childress on 03-29-2023 Protein (U) [Mass/Vol] Negative Negative [facility] Protein [Mass/volume] in Ser um or PlasmaOrdered By: Ming Childress on 03-29-2023 Protein [Mass/Vol] 6.8 g/dL 6.4-8.9 [facility] RBC Auto (Bld) [#/Vol]Ordere d By: Ming Childress on 03-29-2023 RBC (Bld) [#/Vol] 4.34 10*6/uL 3.60-5.00 [facility] Serum or plasma albumin/glob ulin mass ratioOrdered By: Ming Childress on 03-29-2023 Albumin/Globulin [Mass ratio] 1.4 {ratio} [facility] Serum or plasma anion gap de terminationOrdered By: Ming Childress on 03-29-2023 Anion gap [Moles/Vol] 12.4 mmol/L 6.0-15.0 [facility] Serum or plasma non-glucuron idated bilirubin measurement (mass/volume)Ordered By: Ming Childress on 03-29-2023 Bilirubin.indirect [Mass/Vol] 0.2 mg/dL [facility] Sodium [Moles/volume] in Ser um or PlasmaOrdered By: Ming Childress on 03-29-2023 Sodium [Moles/Vol] 138 mmol/L 136-145 [facility] Specific gravity Auto test s trip (U) [Rel density]Ordered By: Ming Childress on 03-29-2023 Specific gravity (U) [Rel density] 1.003 1.001-1.030 [facility] US transvaginalon 03-29-[address] [facility] [place] [address] Ultrasound Report Signed Patient: Livia Noyola MR#: [id number] : 1985 Acct:[id number] Age/Sex: 38 / F ADM Date: 03/29/23 Loc: Room: [address] [place] [address] Type: ADM IN Attending Dr: Christi Aquino MD Ordering Provider: Ming Childress DO Date of Service: 03/29/23 US/US transvaginal: r/o L ovarian torsion ([id number]) US/US pelvic complete: PAIN Copies to: DO [...] Davi Figueroa M.D.03/29/2023 8:20 AM Dictation Location: [place] [address] Tech: Brooke Hodge Transcribed By: AMBER 03/29/23819 Dictated By: Davi Figueroa DO 03/29/2316 Signed By: 03/29/23819 Normal [facility] Urea nitrogen [Mass/volume] in Serum or PlasmaOrdered By: Ming Childress on 03-29-2023 Urea nitrogen [Mass/Vol] 6 mg/dL 01-04 [facility] Urinalysison 03-29-2023 Appearance (U) Clear Normal Clear [facility] Comment on above: Order Comment: Name Collection Type:: Clean-Voided Midstream Performed By: #### H CGQNT #### [facility] [address] [place] [id number] [place] Bilirubin,Urine Negative Normal Negative [facility] Comment on above: Order Comment: Name Collection Type:: Clean-Voided Midstream Performed By: #### H CGQNT #### [facility] [address] [place] [address] [place] Color (U) Yellow Normal Yellow [facility] Comment on above: Order Comment: Name Collection Type:: Clean-Voided Midstream Performed By: #### H CGQNT #### [facility] [address] [place] [address] [place] Glucose Ql (U) Normal Normal Normal [facility] Comment on above: Order Comment: Name Collection Type:: Clean-Voided Midstream Performed By: #### H CGQNT #### [address] Ketones Ql (U) Negative Normal Negative [facility] Comment on above: Order Comment: Name Collection Type:: Clean-Voided Midstream Performed By: #### H CGQNT #### [address] Leukocyte esterase Test strip Ql (U) Negative Normal Negative [facility] Comment on above: Order Comment: Name Collection Type:: Clean-Voided Midstream Performed By: #### H CGQNT #### [address] Nitrite,Urine Negative Normal Negative [facility] Comment on above: Order Comment: Name Collection Type:: Clean-Voided Midstream Performed By: #### H CGQNT #### [address] Occult Blood,Urine Negative Normal Negative [facility] Comment on above: Order Comment: Name Collection Type:: Clean-Voided Midstream Performed By: #### H CGQNT #### [address] pH (U) 7.5 [pH] Normal 5.0-9.0 [facility] Comment on above: Order Comment: Name Collection Type:: Clean-Voided Midstream Performed By: #### H CGQNT #### [place] [address] [place] Protein,Urine Negative Normal Negative [facility] Comment on above: Order Comment: Name Collection Type:: Clean-Voided Midstream Performed By: #### H CGQNT #### [place] [address] [place] Specificy Loda,Urine 1.003 Normal 1.001-1.030 [facility] Comment on above: Order Comment: Name Collection Type:: Clean-Voided Midstream Performed By: #### H CGQNT #### [address] Urobilinogen,Urine Normal Normal Normal [facility] Comment on above: Order Comment: Name Collection Type:: Clean-Voided Midstream Performed By: #### H CGQNT #### [facility] [address] Urine clarity by refractomet ry automatedOrdered By: Ming Childress on 03-29-2023 Clarity Refractometry automated (U) Clear Clear [facility] Urine glucose measurement by automated test strip (mass/volume)Ordered By: Ming Childress on 03-29-2023 Glucose Auto test strip (U) [Mass/Vol] Normal mg/dL Normal [facility] Urine hemoglobin detection b y automated test stripOrdered By: Ming Childress on 03-29-2023 Hemoglobin Auto test strip Ql (U) Negative Negative [facility] Urine leukocyte esterase det ection by automated test stripOrdered By: Ming Childress on 03-29-2023 Leukocyte esterase Auto test strip Ql (U) Negative Negative [facility] Urobilinogen Auto test strip (U) [Mass/Vol]Ordered By: Ming Childress on 03-29-2023 Urobilinogen (U) [Mass/Vol] Normal mg/dL Normal [facility] WBC Auto (Bld) [#/Vol]Ordere d By: Ming Childress on 03-29-2023 WBC (Bld) [#/Vol] 7.5 10*3/uL 3.8-11.6 [facility] pH Auto test strip (U)Ordere d By: Ming Childress on 03-29-2023 pH (U) 7.5 [pH] 5.0-9.0 [facility] Basic Metabolic Panelon 08-2 Anion gap [Moles/Vol] 11.9 mmol/L Normal 6.0-15.0 [facility] Comment on above: Performed By: #### C BC #### [facility] [address] [place] [address] Calcium [Mass/Vol] 9.2 mg/dL Normal 8.6-10.3 [facility] Comment on above: Performed By: #### C BC #### [facility] [address] [place] [id number] [place] Chloride [Moles/Vol] 107 mmol/L Normal 98-107 [facility] Comment on above: Performed By: #### C BC #### [facility] [address] [place] [address] [place] CO2 [Moles/Vol] 21.5 mmol/L Normal 21.0-31.[address] [facility] Comment on above: Performed By: #### C BC #### [facility] [address] [place] [address] [place] Creatinine [Mass/Vol] 0.71 mg/dL Normal 0.60-1.20 [facility] Comment on above: Performed By: #### C BC #### [facility] [address] [place] [address] [place] Creatinine Clr Calc Pharmacy 115.62 [facility] Comment on above: Performed By: #### C BC #### [place] [address] [place] GFR/1.73 sq M.predicted MDRD (S/P/Bld) [Vol rate/Area] mL/min/{1.73_m2} [facility] Comment on above: Performed By: #### C BC #### [facility] [address] Glucose [Mass/Vol] 99 mg/dL Normal 70-100 [facility] Comment on above: Result Comment: [place] Glucose Reference Range is dependent on time and content of last meal. Glucose of more than 200 mg/dL in a nonstressed, ambulatory subject supports the diagnosis of Diabetes Mellitus. ADA recommended reference range Performed By: #### C BC #### [facility] [address] [place] [address] [place] Potassium [Moles/Vol] 3.4 mmol/L Low 3.5-5.1 [facility] Comment on above: Performed By: #### C BC #### [place] [address] [place] Sodium [Moles/Vol] 137 mmol/L Normal 136-145 [facility] Comment on above: Performed By: #### C BC #### [facility] [address] [place] [address] [place] Urea nitrogen [Mass/Vol] 6 mg/dL Low 7-25 [facility] Comment on above: Performed By: #### C BC #### [facility] [address] Bilirubin Test strip Ql (U)O rdered By: Elier Jackson on 02-06-2023 Bilirubin Ql (U) Negative Negative [facility] CT abdomen pelvis w conon CT abdomen pelvis w con [facility] [address] [place] [address] [place] [address] CT Scan Report Signed Patient: Livia Noyola MR#: [id number] : 1985 Acct:[id number] Age/Sex: 38 / F ADM Date: 02/05/23 Loc: ER Room: Type: [facility] ER Attending Dr: Copies to: Elier Jackson [...] Betancur Jr., D.O.02/06/2023 11:23 AM Dictation Location: [place] [address] Transcribed By: [facility] 02/06/23 1123 Dictated By: Dennis Betancur Jr, DO 02/06/23 1109 Signed By: 02/06/23 1123 Normal [facility] Color Auto (U)Ordered By: Julian Jackson on 02-06-2023 Color (U) Yellow Yellow [facility] Complete Blood Count Auto Di ffon 02-06-2023 Basophils (Bld) [#/Vol] 0.1 10*3/uL Normal 0.0-0.2 [facility] Comment on above: Result Comment: PERF ORMED BY: [place] [address] PATHOLOGIST MASTER SHEET CLERK FARNAZ ZULETA M.D. Performed By: #### C BC #### [address] Basophils/100 WBC (Bld) 1.4 % Normal . [facility] Comment on above: Performed By: #### C BC #### [address] Eosinophils (Bld) [#/Vol] 0.1 10*3/uL Normal 0.0-0.45 [facility] Comment on above: Performed By: #### C BC #### [address] Eosinophils/100 WBC (Bld) 1.5 % Normal . [facility] Comment on above: Performed By: #### C BC #### [address] Erythrocyte distribution width (RBC) [Ratio] 15.9 % High 11.9-15.3 [facility] Comment on above: Performed By: #### C BC #### [address] Hematocrit (Bld) [Volume fraction] 37.3 % Normal 34.0-46.4 [facility] Comment on above: Performed By: #### C BC #### [facility] [address] Hemoglobin (Bld) [Mass/Vol] 11.8 g/dL Normal 11.8-15.4 [facility] Comment on above: Performed By: #### C BC #### [facility] [address] Lymphocytes (Bld) [#/Vol] 3.6 10*3/uL Normal 1.00-4.8 [facility] Comment on above: Performed By: #### C BC #### [address] Lymphocytes/100 WBC (Bld) 44.3 % Normal . [facility] Comment on above: Performed By: #### C BC #### [address] MCH (RBC) [Entitic mass] 24.8 pg Normal 24.7-34.3 [facility] Comment on above: Performed By: #### C BC #### [address] MCV (RBC) [Entitic vol] 78.1 fL Low 80-100 [facility] Comment on above: Performed By: #### C BC #### [address] Mean Corpuscular HGB Conc 31.8 g/dL Low 32.0-35.0 [facility] Comment on above: Performed By: #### C BC #### [address] Monocytes (Bld) [#/Vol] 0.7 10*3/uL Normal 0.0-0.8 [facility] Comment on above: Performed By: #### C BC #### [address] Monocytes/100 WBC (Bld) 17.33 % Normal 0.00-20.00 [facility] Comment on above: Performed By: #### C BC #### [facility] [address] [place] [address] [place] Monocytes/100 WBC (Bld) 8.4 % Normal . [facility] Comment on above: Performed By: #### C BC #### [facility] [address] Neutrophils (Bld) [#/Vol] 3.6 10*3/uL Normal 1.8-7.7 [facility] Comment on above: Performed By: #### C BC #### [facility] [address] Neutrophils/100 WBC (Bld) 44.4 % Normal . [facility] Comment on above: Performed By: #### C BC #### [facility] [address] NRBC% 0.1 /100{WBC} Normal 0-0.5 [facility] Comment on above: Performed By: #### C BC #### [facility] [address] Platelet mean volume (Bld) [Entitic vol] 8.0 fL Normal 6.3-10.7 [facility] Comment on above: Performed By: #### C BC #### [facility] [address] [place] [address] [place] Platelets (Bld) [#/Vol] 398 10*3/uL Normal 150-450 [facility] Comment on above: Performed By: #### C BC #### [facility] [address] [place] [address] [place] RBC (Bld) [#/Vol] 4.78 10*6/uL Normal 3.60-5.00 [facility] Comment on above: Performed By: #### C BC #### [facility] [address] WBC (Bld) [#/Vol] 8.1 10*3/uL Normal 3.8-11.6 [facility] Comment on above: Performed By: #### C BC #### [place] [id number] [facility] HCG ( test) IA.lazi d Ql (U)Ordered By: Elier Jackson on 02-06-2023 HCG ( test) Ql (U) Negative [facility] HCG,Qualitative Serumon 01-12 HCG,Qualitative Serum Negative Normal [facility] Comment on above: Result Comment: PERF ORMED BY: [place] [address] PATHOLOGIST MASTER SHEET CLERK FARNAZ ZULETA M.D. Performed By: #### C BC #### [address] HCG,Quantitativeon HCG,Quantitative < 0.[address] [facility] Comment on above: Result Comment: Appr oximate Approximate hCG Gestational Age Range (mIU/ml) (weeks) 0.2-1 5-50 1-2 50-500 2-3 100-5,000 3-4 500-10,000 4-5 1,000-50,000 5-6 10,000-100,000 6-8 15,000-200,000 8-12 10,000-100,000 PERFORMED BY: [address] [place] [address] PATHOLOGIST MASTER SHEET CLERK FARNAZ ZULETA M.D. Performed By: #### H CGQNT #### [address] HCG,Urineon 02-06-2023 Beta HCG ( test) Ql (U) Negative Normal [facility] Comment on above: Order Comment: Name Collection Type:: Clean-Voided Midstream Result Comment: PERF ORMED BY: [place] [address] PATHOLOGIST MASTER SHEET CLERK FARNAZ ZULETA M.D. Performed By: #### U A, UHCG #### [facility] [address] [place], [place] [id number] [facility] Hepatic Panelon 02-06-2023 Albumin [Mass/Vol] 4.2 g/dL Normal 3.5-5.7 [facility] Comment on above: Performed By: #### C BC #### [facility] [address] Albumin/Globulin [Mass ratio] 1.4 {ratio} Normal [facility] Comment on above: Performed By: #### C BC #### [facility] [address] ALP [Catalytic activity/Vol] 52 U/L Normal 34-104 [facility] Comment on above: Performed By: #### C BC #### [facility] [address] [place] [address] ALT [Catalytic activity/Vol] 13 U/L Normal 7-52 [facility] Comment on above: Performed By: #### C BC #### [address] AST [Catalytic activity/Vol] 12 U/L Low 13-39 [facility] Comment on above: Performed By: #### C BC #### [address] Bilirubin [Mass/Vol] 0.3 mg/dL Normal 0.3-1.0 [facility] Comment on above: Performed By: #### C BC #### [address] Bilirubin,Indirect 0.2 mg/dL Normal [facility] Comment on above: Performed By: #### C BC #### [address] Bilirubin.indirect [Mass/Vol] 0.10 mg/dL Normal 0.03-0.18 [facility] Comment on above: Performed By: #### C BC #### [facility] [address] [place] [address] Globulin (S) [Mass/Vol] 3.0 g/dL Normal F [facility] Comment on above: Performed By: #### C BC #### [address] Protein [Mass/Vol] 7.2 g/dL Normal 6.4-8.9 [facility] Comment on above: Performed By: #### C BC #### [address] Ketones Auto test strip (U) [Mass/Vol]Ordered By: Elier Jackson on 02-06-2023 Ketones (U) [Mass/Vol] Negative Negative [facility] Lipaseon 02-06-2023 Lipase [Catalytic activity/Vol] 40.0 U/L Normal 11.0-82.0 [facility] Comment on above: Result Comment: PERF ORMED BY: [place] [address] PATHOLOGIST MASTER SHEET CLERK FARNAZ ZULETA M.D. Performed By: #### C BC #### [address] Nitrite Test strip Ql (U)Ord ered By: Elier Jackson on 02-06-2023 Nitrite Ql (U) Negative Negative [facility] Protein Auto test strip (U) [Mass/Vol]Ordered By: Elier Jackson on 02-06-2023 Protein (U) [Mass/Vol] Negative Negative [facility] Specific gravity Auto test s trip (U) [Rel density]Ordered By: Elier Jcakson on 02-06-2023 Specific gravity (U) [Rel density] 1.007 1.001-1.030 [facility] US pelvic completeon [address] [facility] Main [place] [address] [place] [address] Ultrasound Report Signed Patient: Livia Noyola MR#: [id number] : 1985 Acct:[id number] Age/Sex: 38 / F ADM Date: 02/05/23 Loc: ER Room: Type: [facility] ER Attending Dr: Ordering Provider: Elier Jackson DO Date of Service: 02/06/23 US/US pelvic complete: adnexa pain ([id number]) US/US transvaginal: . Copies to: Elier M [...] Betancur Jr., D.O.02/06/2023 11:25 AM Dictation Location: [place] [address] Tech: Jada Jon Transcribed By: [facility] 02/06/23 1125 Dictated By: Dennis Betancur Jr, DO 02/06/23 1123 Signed By: 02/06/23 1125 Normal [facility] Urinalysison 02-06-2023 Appearance (U) Clear Normal Clear [facility] Comment on above: Order Comment: Name Collection Type:: Clean-Voided Midstream Performed By: #### U A, UHCG #### [facility] [address] [place] [address] [place] Bilirubin,Urine Negative Normal Negative [facility] Comment on above: Order Comment: Name Collection Type:: Clean-Voided Midstream Performed By: #### U A, UHCG #### [facility] [address] [place] [id number] [place] Color (U) Yellow Normal Yellow [facility] Comment on above: Order Comment: Name Collection Type:: Clean-Voided Midstream Performed By: #### U A, UHCG #### [facility] [address] [place] [phone] [place] Glucose Ql (U) Normal Normal Normal [facility] Comment on above: Order Comment: Name Collection Type:: Clean-Voided Midstream Performed By: #### U A, UHCG #### [facility] [address] [place] [address] [place] Ketones Ql (U) Negative Normal Negative [facility] Comment on above: Order Comment: Name Collection Type:: Clean-Voided Midstream Performed By: #### U A, UHCG #### [address] Leukocyte esterase Test strip Ql (U) Negative Normal Negative [facility] Comment on above: Order Comment: Name Collection Type:: Clean-Voided Midstream Performed By: #### U A, UHCG #### [place] [address] [place] Nitrite,Urine Negative Normal Negative [facility] Comment on above: Order Comment: Name Collection Type:: Clean-Voided Midstream Performed By: #### U A, UHCG #### [address] Occult Blood,Urine Negative Normal Negative [facility] Comment on above: Order Comment: Name Collection Type:: Clean-Voided Midstream Performed By: #### U A, UHCG #### [facility] [address] [place] [address] [place] pH (U) 7.0 [pH] Normal 5.0-9.0 [facility] Comment on above: Order Comment: Name Collection Type:: Clean-Voided Midstream Performed By: #### U A, UHCG #### [facility] [address] [place] [address] [place] Protein,Urine Negative Normal Negative [facility] Comment on above: Order Comment: Name Collection Type:: Clean-Voided Midstream Performed By: #### U A, UHCG #### [facility] [address] [place] [address] [place] Specificy Loda,Urine 1.007 Normal 1.001-1.030 [facility] Comment on above: Order Comment: Name Collection Type:: Clean-Voided Midstream Performed By: #### U A, UHCG #### [facility] [address] [place] [address] Urobilinogen,Urine Normal Normal Normal [facility] Comment on above: Order Comment: Name Collection Type:: Clean-Voided Midstream Performed By: #### U [facility] #### [facility] [address] [place] [phone] [facility] Urine clarity by refractomet ry automatedOrdered By: Elier Jackson on 02-06-2023 Clarity Refractometry automated (U) Clear Clear [facility] Urine glucose measurement by automated test strip (mass/volume)Ordered By: Elier Jackson on 02-06-2023 Glucose Auto test strip (U) [Mass/Vol] Normal mg/dL Normal [facility] Urine hemoglobin detection b y automated test stripOrdered By: Elier Jackson on 02-06-2023 Hemoglobin Auto test strip Ql (U) Negative Negative [facility] Urine leukocyte esterase det ection by automated test stripOrdered By: Elier Jackson on 02-06-2023 Leukocyte esterase Auto test strip Ql (U) Negative Negative [facility] Urobilinogen Auto test strip (U) [Mass/Vol]Ordered By: Elier Jackson on 02-06-2023 Urobilinogen (U) [Mass/Vol] Normal mg/dL Normal [facility] pH Auto test strip (U)Ordere d By: Elier Jackson on 02-06-2023 pH (U) 7.0 [pH] 5.0-9.0 [facility] Alanine aminotransferase [En zymatic activity/volume] in Serum or PlasmaOrdered By: Elier Jackson on 02-05-2023 ALT [Catalytic activity/Vol] 13 U/L 7-52 [facility] Albumin [Mass/volume] in Ser um or Plasma by Bromocresol green (BCG) dye binding methoOrdered By: Elier Jackson on 02-05-2023 Albumin BCG dye [Mass/Vol] 4.2 g/dL 3.5-5.7 [facility] Alkaline phosphatase [Enzyma tic activity/volume] in Serum or PlasmaOrdered By: Elier Jackson on 02-05-2023 ALP [Catalytic activity/Vol] 52 U/L 34-104 [facility] Aspartate aminotransferase [ Enzymatic activity/volume] in Serum or PlasmaOrdered By: Elier Jackson on 02-05-2023 AST [Catalytic activity/Vol] 12 U/L 13-39 [facility] Basophils Auto (Bld) [#/Vol] Ordered By: Elier Jackson on 02-05-2023 Basophils (Bld) [#/Vol] 0.1 10*3/uL 0.0-0.2 [facility] Basophils/100 WBC Auto (Bld) Ordered By: Elier Jackson on 02-05-2023 Basophils/100 WBC (Bld) 1.4 % . [facility] Bilirubin.direct [Mass/volum e] in Serum or PlasmaOrdered By: Elier Jackson on 02-05-2023 Bilirubin.direct [Mass/Vol] 0.10 mg/dL 0.03-0.18 [facility] Bilirubin.total [Mass/volume ] in Serum or PlasmaOrdered By: Elier Jackson on 02-05-2023 Bilirubin [Mass/Vol] 0.3 mg/dL 0.3-1.0 [facility] Calcium [Mass/volume] in Ser um or PlasmaOrdered By: Elier Jackson on 02-05-2023 Calcium [Mass/Vol] 9.2 mg/dL 8.6-10.3 [facility] Carbon dioxide, total [Moles /volume] in Serum or PlasmaOrdered By: Elier Jackson on 02-05-2023 CO2 [Moles/Vol] 21.5 mmol/L 21.0-31.[address] [facility] Chloride [Moles/volume] in S binu or PlasmaOrdered By: Elier Jackson on 02-05-2023 Chloride [Moles/Vol] 107 mmol/L 98-107 [facility] Choriogonadotropin.beta subu nit [Units/volume] in Serum or PlasmaOrdered By: Elier Jackson on 02-05-2023 HCG.beta subunit Qn m[IU]/mL [facility] Comment on above: Approximate Approxim ate hCG Gestational Age Range (mIU/ml) (weeks)0.2-1 5-50 1-2 50-500 2-3 100-5,000 3-4 500-10,000 4-5 1,000-50,000 5-6 10,000-100,000 6-8 15,000-200,000 8-12 10,000-100,000 HCG.beta subunit Qn Negative [facility] Creatinine [Mass/volume] in Serum or PlasmaOrdered By: Elier Jackson on 02-05-2023 Creatinine [Mass/Vol] 0.71 mg/dL 0.60-1.20 [facility] Eosinophils Auto (Bld) [#/Vo l]Ordered By: Elier Jackson on 02-05-2023 Eosinophils (Bld) [#/Vol] 0.1 10*3/uL 0.0-0.45 [facility] Eosinophils/100 WBC Auto (Bl d)Ordered By: Elier Jackson on 02-05-2023 Eosinophils/100 WBC (Bld) 1.5 % . [facility] Erythrocyte distribution wid th Auto (RBC) [Ratio]Ordered By: Elier Jackson on 02-05-2023 Erythrocyte distribution width (RBC) [Ratio] 15.9 % 11.9-15.3 [facility] Globulin Calc (S) [Mass/Vol] Ordered By: Elier Jackson on 02-05-2023 Globulin (S) [Mass/Vol] 3.0 g/dL [facility] Glucose [Mass/volume] in Ser um or PlasmaOrdered By: Elier Jackson on 02-05-2023 Glucose [Mass/Vol] 99 mg/dL 70-100 [facility] Comment on above: ADA recommended refe rence rangeRandom Glucose Reference Range is dependent on time and content of last meal. Glucose of more than 200 mg/dL in a nonstressed, ambulatory subject supports the diagnosis of Diabetes Mellitus. Hematocrit Auto (Bld) [Volum e fraction]Ordered By: Elier Jackson on 02-05-2023 Hematocrit (Bld) [Volume fraction] 37.3 % 34.0-46.4 [facility] Hemoglobin [Mass/volume] in BloodOrdered By: Elier Jackson 02-05-2023 Hemoglobin (Bld) [Mass/Vol] 11.8 g/dL 11.8-15.4 [facility] Leukocytes [#/volume] correc flo for nucleated erythrocytes in Blood by Automated counOrdered By: Elier Jackson on 02-05-2023 WBC corrected for nucl RBC Auto (Bld) [#/Vol] 8.1 10*3/uL 3.8-11.6 [facility] Lipase [Enzymatic activity/v olume] in Serum or PlasmaOrdered By: Elier Jackson on 02-05-2023 Lipase [Catalytic activity/Vol] 40.0 U/L 11.0-82.0 [facility] Lymphocytes Auto (Bld) [#/Vo l]Ordered By: Elier Jackson on 02-05-2023 Lymphocytes (Bld) [#/Vol] 3.6 10*3/uL 1.00-4.8 [facility] Lymphocytes/100 WBC Auto (Bl d)Ordered By: Elier Jackson on 02-05-2023 Lymphocytes/100 WBC (Bld) 44.3 % . [facility] MCH Auto (RBC) [Entitic mass ]Ordered By: Elier Jackson on 02-05-2023 MCH (RBC) [Entitic mass] 24.8 pg 24.7-34.3 [facility] MCHC Auto (RBC) [Mass/Vol]Or dered By: Elier Jackson on 02-05-2023 MCHC (RBC) [Mass/Vol] 31.8 g/dL 32.0-35.0 [facility] MCV Auto (RBC) [Entitic vol] Ordered By: Elier Jackson on 02-05-2023 MCV (RBC) [Entitic vol] 78.1 fL 80-100 [facility] Monocyte distribution width [Entitic volume] in Blood by AutomatedOrdered By: Elier Jackson on 02-05-2023 Monocyte distribution width Auto (Bld) [Entitic vol] 17.33 % 0.00-20.00 [facility] Monocytes Auto (Bld) [#/Vol] Ordered By: Elier Jackson on 02-05-2023 Monocytes (Bld) [#/Vol] 0.7 10*3/uL 0.0-0.8 [facility] Monocytes/100 WBC Auto (Bld) Ordered By: Elier Jackson on 02-05-2023 Monocytes/100 WBC (Bld) 8.4 % . [facility] Neutrophils Auto (Bld) [#/Vo l]Ordered By: Elier Jackson on 02-05-2023 Neutrophils (Bld) [#/Vol] 3.6 10*3/uL 1.8-7.7 [facility] Neutrophils/100 WBC Auto (Bl d)Ordered By: Elier Jackson on 02-05-2023 Neutrophils/100 WBC (Bld) 44.4 % . [facility] No Panel InformationOrdered By: Elier Jackson on 02-05-2023 Estimated GFR (CKD-EPI) > 60.0 mL/Min [facility] Creatinine Clearance (Chem 115.62 [facility] Nucleated erythrocytes [Pres ence] in Blood by Automated countOrdered By: Elier Jackson on 02-05-2023 Nucleated RBC Auto Ql (Bld) 0.1 /100{WBC} 0-0.5 [facility] Platelet mean volume Auto (B ld) [Entitic vol]Ordered By: Elier Jackson on 02-05-2023 Platelet mean volume (Bld) [Entitic vol] 8.0 fL 6.3-10.7 [facility] Platelets Auto (Bld) [#/Vol] Ordered By: Elier Jackson on 02-05-2023 Platelets (Bld) [#/Vol] 398 10*3/uL 150-450 [facility] Potassium [Moles/volume] in Serum or PlasmaOrdered By: Elier Jackosn on 02-05-2023 Potassium [Moles/Vol] 3.4 mmol/L 3.5-5.1 [facility] Protein [Mass/volume] in Ser um or PlasmaOrdered By: Elier Jackson on 02-05-2023 Protein [Mass/Vol] 7.2 g/dL 6.4-8.9 [facility] RBC Auto (Bld) [#/Vol]Ordere d By: Elier Jackson on 02-05-2023 RBC (Bld) [#/Vol] 4.78 10*6/uL 3.60-5.00 [facility] Serum or plasma albumin/glob ulin mass ratioOrdered By: Elier Jackson on 02-05-2023 Albumin/Globulin [Mass ratio] 1.4 {ratio} [facility] Serum or plasma anion gap de terminationOrdered By: Elier Jackson on 02-05-2023 Anion gap [Moles/Vol] 11.9 mmol/L 6.0-15.0 [facility] Serum or plasma non-glucuron idated bilirubin measurement (mass/volume)Ordered By: Elier Jackson on 02-05-2023 Bilirubin.indirect [Mass/Vol] 0.2 mg/dL [facility] Sodium [Moles/volume] in Ser um or PlasmaOrdered By: Elier Jackson on 02-05-2023 Sodium [Moles/Vol] 137 mmol/L 136-145 [facility] Urea nitrogen [Mass/volume] in Serum or PlasmaOrdered By: Elier Jackson on 02-05-2023 Urea nitrogen [Mass/Vol] 6 mg/dL 7-25 [facility] WBC Auto (Bld) [#/Vol]Ordere d By: Elier Jackson on 02-05-2023 WBC (Bld) [#/Vol] 8.1 10*3/uL 3.8-11.6 [facility] GENITAL CULTUREon 08-01-2022 Genital Culture, Routine Final report Abnormal [facility] Comment on above: Result Comment: Spec imen stability note: A swab transport (ie., ESwab, Amies agar gel) received by the lab more than 24 hours after collection may result in reduced recovery of Neisseria gonorrhoeae (GC). (This is informational only and may not apply to this specimen.) Performed By: #### C XGENIT #### [facility] [address] [place] [address] Dr. Rod Ramirez Result 1 Comment Abnormal [facility] Comment on above: Result Comment: Beta hemolytic [...] (CLSI) Performed By: #### C XGENIT #### [facility] [address] [place] [address] Dr. Rod Ramirez Result 2 Comment Normal [facility] Comment on above: Result Comment: Rout ine genital deborah. Light growth Performed By: #### C XGENIT #### [facility] [address] [place] [address] Dr. Rod Ramirez CBC AUTO DIFFon 07-28-2022 BASO # 0.0 103/ul Normal 0.0-0.1 [facility] Comment on above: Performed By: #### C BC #### [facility] [address] [place] [address] Dr. Rod Ramirez Basophils/100 WBC (Bld) 0.4 % Normal 0.2-2.0 [facility] Comment on above: Performed By: #### C BC #### [facility] [address] [place] [address] Dr. Rod Ramirez EO # 0.1 103/ul Normal 0.0-0.7 [facility] Comment on above: Performed By: #### C BC #### [facility] [address] [place] [address] Dr. Rod Ramirez Eosinophils/100 WBC (Bld) 1.5 % Normal 0.9-7.0 [facility] Comment on above: Performed By: #### C BC #### [facility] [address] [place] [address] Dr. Rod Ramirez Erythrocyte distribution width (RBC) [Ratio] 12.9 % Normal 11.0-15.0 [facility] Comment on above: Performed By: #### C BC #### [facility] [address] [place] [address] Dr. Rod Ramirez Hematocrit (Bld) [Volume fraction] 40.9 % Normal 36.0-48.0 [facility] Comment on above: Performed By: #### C BC #### [facility] [address] [place] [address] Dr. Rod Ramirez Hemoglobin (Bld) [Mass/Vol] 13.7 g/dL Normal 12.0-16.0 [facility] Comment on above: Performed By: #### C BC #### [facility] [address] [place] [address] Dr. Rod Ramirez IG # 0.02 10e3/ul Normal 0.00-0.03 [facility] Comment on above: Performed By: #### C BC #### [facility] [address] [place] [address] Dr. Rod Ramirez IG % 0.3 % Normal 0.0-0.5 [facility] Comment on above: Performed By: #### C BC #### [facility] [address] [place] [address] Dr. Rod Ramirez LYMPH # 1.6 103/ul Normal 1.2-3.8 [facility] Comment on above: Performed By: #### C BC #### [facility] [address] [place] [address] Dr. Rod Ramirez Lymphocytes/100 WBC (Bld) 23.6 % Normal 20.5-60.0 [facility] Comment on above: Performed By: #### C BC #### [facility] [address] [place] [address] Dr. Rod Ramirez MANUAL DIFF REQ NO Normal [facility] Comment on above: Performed By: #### C BC #### [facility] [address] [place] [address] Dr. Rod Ramirez MCH (RBC) [Entitic mass] 27.7 pg Normal 26.7-34.0 [facility] Comment on above: Performed By: #### C BC #### [facility] [address] [place] [address] Dr. Rod Ramirez MCHC (RBC) [Mass/Vol] 33.5 g/dL Normal 29.9-35.2 [facility] Comment on above: Performed By: #### C BC #### [facility] [address] [place] [address] Dr. Rod Ramirez MCV (RBC) [Entitic vol] 82.6 fL Normal 81.0-99.0 [facility] Comment on above: Performed By: #### C BC #### [facility] [address] [place] [address] Dr. Rod Ramirez MONO # 0.4 103/ul Normal 0.3-0.8 [facility] Comment on above: Performed By: #### C BC #### [facility] [address] [place] [address] Dr. Rod Ramirez Monocytes/100 WBC (Bld) 6.4 % Normal 1.7-12.0 [facility] Comment on above: Performed By: #### C BC #### [facility] [address] [place] [address] Dr. Rod Ramirez NEUT # 4.6 103/ul Normal 1.4-6.5 [facility] Comment on above: Performed By: #### C BC #### [facility] [address] [place] [address] Dr. Rod Ramirez Neutrophils/100 WBC (Bld) 67.8 % Normal 43.0-75.0 [facility] Comment on above: Performed By: #### C BC #### [facility] [address] [place] [address] Dr. Rod Ramirez Platelet mean volume (Bld) [Entitic vol] 9.4 fL Critically low 9.5-13.5 [facility] Comment on above: Performed By: #### C BC #### [facility] [address] [place] [address] Dr. Rod Ramirez PLT 439 103/ul Normal 150-450 [facility] Comment on above: Performed By: #### C BC #### [facility] [address] [place] [address] Dr. Rod Ramirez RBC 4.95 106/ul Normal 4.20-5.40 [facility] Comment on above: Performed By: #### C BC #### [facility] [address] [place] [address] Dr. Rod Ramirez WBC 6.7 103/ul Normal 4.0-11.0 [facility] Comment on above: Performed By: #### C BC #### [facility] [address] [place] [address] Dr. Rod Ramirez PREG HCG QUALon 07-28-2022 , QUAL Negative Normal NEGATIVE [facility] Comment on above: Performed By: #### P REG #### [facility] [address] [place] [address] [address] Rod Ramirez PROF CHEM 8 (BAS METB)on Anion gap [Moles/Vol] 15.5 mmol/L Normal [facility] Comment on above: Performed By: #### B MP #### [facility] [address] [address] [address] Rod Ramirez Calcium [Mass/Vol] 9.0 mg/dL Normal 8.5-10.1 [facility] Comment on above: Performed By: #### B MP #### [facility] [address] [place] [address] Dr. Rod Ramirez Chloride [Moles/Vol] 103 mmol/L Normal 98-107 [facility] Comment on above: Performed By: #### B MP #### [facility] [address] [address] [address] Rod Ramirez CO2 [Moles/Vol] 23.9 mmol/L Normal 21.0-32.0 [facility] Comment on above: Performed By: #### B MP #### [facility] [address] [place] [address] Dr. Rod Ramirez Creatinine [Mass/Vol] 0.79 mg/dL Normal 0.55-1.02 [facility] Comment on above: Performed By: #### B MP #### [facility] [address] [address] [address] Rod Ramirez EGFR-AF CITIZEN OF [place] >60 Normal >=60 [facility] Comment on above: Performed By: #### B MP #### [facility] [address] [place] [address] Dr. Rod Ramirez EGFR-NON AF CITIZEN OF [place] >60 Normal >=60 [facility] Comment on above: Performed By: #### B MP #### [facility] [address] [address] [address] Rod Ramirez Glucose [Mass/Vol] 108 mg/dL Critically high 74-106 [facility] Comment on above: Performed By: #### B MP #### [facility] [address] [address] [address] Rod Ramirez Potassium [Moles/Vol] 3.4 mmol/L Critically low 3.5-5.1 [facility] Comment on above: Performed By: #### B MP #### [facility] [address] [address] [address] Rod Ramirez Sodium [Moles/Vol] 139 mmol/L Normal 136-145 [facility] Comment on above: Performed By: #### B MP #### [facility] [address] [address] [address] Rod Ramirez Urea nitrogen [Mass/Vol] 7.0 mg/dL Normal 7.0-18.0 [facility] Comment on above: Performed By: #### B MP #### [facility] [address] [address] [address] Rod Ramirez Urea nitrogen/Creatinine [Mass ratio] 8.9 mg/mg Normal [facility] Comment on above: Performed By: #### B MP #### [facility] [address] [address] [address] Rod Ramirez US PELVIS TRANSVAGon 023 [...] AUBREY BURKS Date: 2022-07-28 07:46 Normal [facility] WET PREPon 07-28-2022 CLUE CELLS NONE SEEN Normal NONE SEEN [facility] Comment on above: Performed By: #### W P #### [facility] [address] [address] [address] Rod Ramirez FUNGAL ELEMENTS NONE SEEN Normal NONE SEEN [facility] Comment on above: Performed By: #### W P #### [facility] [address] [address] [address] Rod Ramirez RBC -WET PREP RARE Abnormal NONE SEEN [facility] Comment on above: Performed By: #### W P #### [facility] [address] [address] [address] Rod Ramirez TRICHOMONAS NONE SEEN Normal NONE SEEN [facility] Comment on above: Performed By: #### W P #### [facility] [address] [address] [address] Rod Ramirez WBC- WET PREP RARE Abnormal NONE SEEN [facility] Comment on above: Performed By: #### W P #### [facility] [address] [address] [address] Rod Ramirez WET PREP BACTERIA NONE SEEN Normal NONE SEEN [facility] Comment on above: Performed By: #### W P #### [facility] [address] [address] [address] Rod Morales 04-30-2022 FRIDA Telephone (HEMASA) LIVIA NOYOLA ([id number]) 1985 F Date Time Provider Department 04/30/22 [...] [D50.0] Order(s):COMP METABOLIC PANEL [SQCMP] Order #: [id number] FUTURE Prescriptions as of 05/03/2022 - ALPRAZolam [...] Status:Closed by GIL NI on 05/03/22 Normal [facility] Anisocytosis LM Ql (Bld)Orde red By: Yevgeniy Cabrera on 04-28-2022 Anisocytosis Ql (Bld) Marked [facility] Automated erythrocytes count in urine sediment (number/area)Ordered By: Yevgeniy Cabrera on 04-28-2022 RBC Auto (Urine sed) [#/Area] None seen [HPF] 0-4 [facility] Automated leukocytes count i n urine sediment (number/area)Ordered By: Yevgeniy Cabrera on 04-28-2022 WBC Auto (Urine sed) [#/Area] 3-4 [HPF] 0-4 [facility] Basophils Auto (Bld) [#/Vol] Ordered By: Yevgeniy Cabrera on 04-28-2022 Basophils (Bld) [#/Vol] 0.1 10*3/uL 0.0-0.2 [facility] Basophils/100 WBC Auto (Bld) Ordered By: Yevgeniy Cabrera on 04-28-2022 Basophils/100 WBC (Bld) 1.0 % . F [facility] Bilirubin Test strip Ql (U)O rdered By: Yevgeniy Cabrera on 04-28-2022 Bilirubin Ql (U) Negative Negative [facility] Body fluid albumin measureme nt (mass/volume)Ordered By: Yevgeniy Cabrera on 04-28-2022 Albumin (Body fld) [Mass/Vol] 3.8 g/dL 3.2-5.5 [facility] Color Auto (U)Ordered By: Marcus Cabrera on 04-28-2022 Color (U) Yellow Yellow [facility] Creatinine and Glomerular fi ltration rate.predicted panel (S/P/Bld)Ordered By: Yevgeniy Cabrera on 04-28-2022 Creatinine [Mass/Vol] 0.62 mg/dL 0.44-1.03 [facility] Eosinophils Auto (Bld) [#/Vo l]Ordered By: Yevgeniy Cabrera on 04-28-2022 Eosinophils (Bld) [#/Vol] 0.1 10*3/uL 0.0-0.45 [facility] Eosinophils/100 WBC Auto (Bl d)Ordered By: Yevgeniy Cabrera on 04-28-2022 Eosinophils/100 WBC (Bld) 1.0 % . [facility] Erythrocyte distribution wid th Auto (RBC) [Ratio]Ordered By: Yevgeniy Cabrera on 04-28-2022 Erythrocyte distribution width (RBC) [Ratio] 27.1 % 11.9-15.3 [facility] Estimated glomerular filtrat ion rate (GFR) non- AmericanOrdered By: Yevgeniy Cabrera on 04-28-2022 GFR/1.73 sq M.predicted among non-blacks MDRD (S/P/Bld) [Vol rate/Area] > 60 mL/Min [facility] Globulin Calc (S) [Mass/Vol] Ordered By: Yevgeniy Cabrera on 04-28-2022 Globulin (S) [Mass/Vol] 3.1 g/dL F [facility] HCG ( test) IA.rapi d Ql (U)Ordered By: Yevgeniy Cabrera on 04-28-2022 HCG ( test) Ql (U) Negative [facility] Hematocrit Auto (Bld) [Volum e fraction]Ordered By: Yevgeniy Cabrera on 04-28-2022 Hematocrit (Bld) [Volume fraction] 39.4 % 34.0-46.4 [facility] Hemoglobin [Mass/volume] in BloodOrdered By: Yevgeniy Cabrera on 04-28-2022 Hemoglobin (Bld) [Mass/Vol] 12.3 g/dL 11.8-15.4 [facility] Hypochromia LM Ql (Bld)Order ed By: Yevgeniy Cabrera on 04-28-2022 Hypochromia Ql (Bld) Slight [facility] Ketones Auto test strip (U) [Mass/Vol]Ordered By: Yevgeniy Cabrera on 04-28-2022 Ketones (U) [Mass/Vol] Negative Negative [facility] - Hematology and Cell countsOrdered By: Yevgeniy Cabrera on 04-28-2022 Nucleated RBC/100 WBC (Bld) [Ratio] 0.0 % 0-0.5 [facility] - UrinalysisOrder ed By: Yevgeniy Cabrera on 04-28-2022 Hyaline casts LM Ql (Urine sed) None seen [LPF] 0-8 [facility] Leukocytes [#/volume] in Blo od by Automated countOrdered By: Yevgeniy Cabrera on 04-28-2022 WBC (Bld) [#/Vol] 7.9 10*3/uL 4.5-11.0 [facility] Lymphocytes Auto (Bld) [#/Vo l]Ordered By: Yevgeniy Cabrera on 04-28-2022 Lymphocytes (Bld) [#/Vol] 2.3 10*3/uL 1.00-4.8 [facility] Lymphocytes/100 WBC Auto (Bl d)Ordered By: Yevgeniy Cabrera on 04-28-2022 Lymphocytes/100 WBC (Bld) 28.9 % . [facility] MCH Auto (RBC) [Entitic mass ]Ordered By: Yevgeniy Cabrera on 04-28-2022 MCH (RBC) [Entitic mass] 23.3 pg 24.7-34.3 [facility] MCHC Auto (RBC) [Mass/Vol]Or dered By: Yevgeniy Cabrera on 04-28-2022 MCHC (RBC) [Mass/Vol] 31.3 g/dL 32.0-35.0 [facility] MCV Auto (RBC) [Entitic vol] Ordered By: Yevgeniy Cabrera on 04-28-2022 MCV (RBC) [Entitic vol] 74.5 fL 80-100 [facility] Monocytes Auto (Bld) [#/Vol] Ordered By: Yevgeniy Cabrera on 04-28-2022 Monocytes (Bld) [#/Vol] 0.4 10*3/uL 0.0-0.8 [facility] Monocytes/100 WBC Auto (Bld) Ordered By: Yevgeniy Cabrera on 04-28-2022 Monocytes/100 WBC (Bld) 4.5 % . F [facility] Neutrophils Auto (Bld) [#/Vo l]Ordered By: Yevgeniy Cabrera on 04-28-2022 Neutrophils (Bld) [#/Vol] 5.1 10*3/uL 1.8-7.7 [facility] Neutrophils/100 WBC Auto (Bl d)Ordered By: Yevgeniy Cabrera on 04-28-2022 Neutrophils/100 WBC (Bld) 64.6 % . [facility] Nitrite Test strip Ql (U)Ord ered By: Yevgeniy Cabrera on 04-28-2022 Nitrite Ql (U) Negative Negative [facility] No Panel InformationOrdered By: Yevgeniy Cabrera on 04-28-2022 Estimated GFR () > 60 mL/Min [facility] Comment on above: GFR estimated refere nce range: According to KDOQI guidelines, <60 ml/min/1.73m2 is sufficient to diagnose a patient with chronic kidney disease. Pharmacy Creatinine Clearance (Chem 132.36 [facility] Slides for Pathologist Review Ordered path review [facility] Ovalocyte detectionOrdered B y: Yevgeniy Cabrera on 04-28-2022 Ovalocytes LM Ql (Bld) Moderate [facility] Platelet adequacy [Presence] in Blood by Light microscopyOrdered By: Yevgeniy Cabrera on 04-28-2022 Platelets LM Ql (Bld) Normal Normal [facility] Platelet mean volume Auto (B ld) [Entitic vol]Ordered By: Yevgeniy Cabrera on 04-28-2022 Platelet mean volume (Bld) [Entitic vol] 7.4 fL 6.3-10.7 [facility] Platelet morphology finding [Identifier] in BloodOrdered By: Yevgeniy Cabrera on 04-28-2022 Platelet morphology finding Nom (Bld) Normal Normal [facility] Platelets Auto (Bld) [#/Vol] Ordered By: Yevgeniy Cabrera on 04-28-2022 Platelets (Bld) [#/Vol] 329 10*3/uL 150-450 [facility] Poikilocytosis [Presence] in Blood by Light microscopyOrdered By: Yevgeniy Cabrera on 04-28-2022 Poikilocytosis LM Ql (Bld) Moderate [facility] Polychromasia [Presence] in Blood by Light microscopyOrdered By: Yevgeniy Cabrera on 04-28-2022 Polychromasia LM Ql (Bld) Slight [facility] Protein Auto test strip (U) [Mass/Vol]Ordered By: Yevgeniy Cabrera on 04-28-2022 Protein (U) [Mass/Vol] Negative Negative [facility] Protein [Mass/volume] in Ser um or PlasmaOrdered By: Yevgeniy Cabrera on 04-28-2022 Protein [Mass/Vol] 6.9 g/dL 6.1-7.9 [facility] RBC Auto (Bld) [#/Vol]Ordere d By: Yevgeniy Cabrera on 04-28-2022 RBC (Bld) [#/Vol] 5.29 10*6/uL 3.60-5.00 [facility] RBC morphologyOrdered By: Marcus Cabrera on 04-28-2022 RBC morphology finding Nom (Bld) N/A [facility] Serum or plasma alanine syed otransferase measurement without P-5'-P (enzymatic activiOrdered By: Yevgeniy Cabrera on 04-28-2022 ALT No additional P-5'-P [Catalytic activity/Vol] 43 U/L 10-60 [facility] Serum or plasma albumin/glob ulin mass ratioOrdered By: Yevgeniy Cabrera on 04-28-2022 Albumin/Globulin [Mass ratio] 1.2 {ratio} [facility] Serum or plasma alkaline zeeshan sphatase measurement (enzymatic activity/volume)Ordered By: Yevgeniy Cabrera on 04-28-2022 ALP [Catalytic activity/Vol] 65 U/L 32-92 [facility] Serum or plasma anion gap de terminationOrdered By: Yevgeniy Cabrera on 04-28-2022 Anion gap [Moles/Vol] 14.6 mmol/L 6.0-15.0 [facility] Serum or plasma aspartate am inotransferase measurement (enzymatic activity/volume)Ordered By: Yevgeniy Cabrera on 04-28-2022 AST [Catalytic activity/Vol] 26 U/L 10-42 [facility] Serum or plasma calcium donaldo urement (mass/volume)Ordered By: Yevgeniy Cabrera on 04-28-2022 Calcium [Mass/Vol] 9.3 mg/dL 8.2-10.2 [facility] Serum or plasma chloride claudia surement (moles/volume)Ordered By: Yevgeniy Cabrera on 04-28-2022 Chloride [Moles/Vol] 105 mmol/L 95-114 [facility] Serum or plasma glucose donaldo urement (mass/volume)Ordered By: Yevgeniy Cabrera on 04-28-2022 Glucose [Mass/Vol] 112 mg/dL 70-100 [facility] Comment on above: ADA recommended refe rence rangeRandom Glucose Reference Range is dependent on time and content of last meal. Glucose of more than 200 mg/dL in a nonstressed, ambulatory subject supports the diagnosis of Diabetes Mellitus. Serum or plasma potassium me asurement (moles/volume)Ordered By: Yevgeniy Cabrera on 04-28-2022 Potassium [Moles/Vol] 3.7 mmol/L 3.5-5.1 [facility] Serum or plasma sodium measu rement (moles/volume)Ordered By: Yevgeniy Cabrera on 04-28-2022 Sodium [Moles/Vol] 137 mmol/L 136-146 [facility] Serum or plasma total biliru bin measurement (mass/volume)Ordered By: Yevgeniy Cabrera on 04-28-2022 Bilirubin [Mass/Vol] 0.5 mg/dL 0.3-1.2 [facility] Serum or plasma total carbon dioxide measurement (moles/volume)Ordered By: Yevgeniy Cabrera on 04-28-2022 CO2 [Moles/Vol] 21.1 mmol/L 22.0-30.[address] [facility] Serum or plasma urea nitroge n measurement (mass/volume)Ordered By: Yevgeniy Cabrera on 04-28-2022 Urea nitrogen [Mass/Vol] 5 mg/dL 9-23 [facility] Specific gravity Auto test s trip (U) [Rel density]Ordered By: Yevgeniy Cabrera on 04-28-2022 Specific gravity (U) [Rel density] 1.005 1.001-1.030 [facility] Squamous epithelial cells de tection in urine sediment by light microscopyOrdered By: Yevgeniy Cabrera on 04-28-2022 Epithelial cells.squamous LM Ql (Urine sed) 0-1 [HPF] 0-2 [facility] Teardrop cell detectionOrder ed By: Yevgeniy Cabrera on 04-28-2022 Dacrocytes LM Ql (Bld) Slight [facility] Urine bacteria detection by automated methodOrdered By: Yevgeniy Cabrera on 04-28-2022 Bacteria Auto Ql (U) None seen None Seen [facility] Urine clarity by refractomet ry automatedOrdered By: Yevgeniy Cabrera on 04-28-2022 Clarity Refractometry automated (U) Cloudy Clear [facility] Urine glucose measurement by automated test strip (mass/volume)Ordered By: Yevgeniy Cabrera on 04-28-2022 Glucose Auto test strip (U) [Mass/Vol] Normal mg/dL Normal [facility] Urine hemoglobin detection b y automated test stripOrdered By: Yevgeniy Cabrera on 04-28-2022 Hemoglobin Auto test strip Ql (U) Negative Negative [facility] Urine leukocyte esterase det ection by automated test stripOrdered By: Yevgeniy Cabrera on 04-28-2022 Leukocyte esterase Auto test strip Ql (U) 1+ Negative [facility] Urobilinogen Auto test strip (U) [Mass/Vol]Ordered By: Yevgeniy Cabrera on 04-28-2022 Urobilinogen (U) [Mass/Vol] Normal mg/dL Normal [facility] pH Auto test strip (U)Ordere d By: Yevgeniy Cabrera on 04-28-2022 pH (U) 6.5 [pH] 5.0-9.0 [facility] ALLIED HEALTHon 04-09-2022 ALLIED HEALTH HNO ID: [id number] Author: Stephenie Suh, 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 Service: ? [...] SIGNATURE: Stephenie Suh, 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 PATIENT NAME: Livai Noyola DATE: April 09, 2022 TIME: 2:21 PM PAGER/CONTACT #: Angela [facility] Andrew 03-19-2022 FRIDA Telephone (NCCAP) LIVIA NOYOLA ([id number]) 1985 F Date Time Provider Department 03/19/22 [...] Date Reviewed: 03/10/2022 Reviewed by: Gil Ni APRN.[employer] - Fully Assessed Reason for Visit: No [...] Encounter Status:Closed by CORBIN MANE [facility]IV[facility] NO[facility]A ([id number]) 1985 F Date Time Provider Department 03/19/22 FINANCIAL NAVIGATOR JOHNY QeexoDESTINY During your visit today, we recorded the following information about you: Sparkle Short [facility] 03/19/2022 4:48 PM Signed 1st report of treatment-Non oncology regimen (Venofer) No FA available for this treatment at this time. Allergies As of Date: 03/19/2022 Noted Allergy Reaction MORPHINE 06/20/2018 14 - Other: See Comments Comments: Spasms Date Reviewed: 03/10/2022 Reviewed by: Gil Ni APRN.[facility] - Fully Assessed Reason for Visit: Benefits Investigation [9967] Prescriptions as of 03/19/2022 - ALPRAZolam (XANAX) [...] iron [K90.9] 10/27/2020 Encounter Status:Closed by [facility], SPARKLE Chicas on 03/19/22 [facility] C[facility]N Telephone (HEMASA) LIVIA NOYOLA ([id number]) 1985 F Date Time Provider Department 03/15/22 [...] Date Reviewed: 03/10/2022 Reviewed by: Gil Ni APRN.[employer] - Fully Assessed Reason for Visit: Social [...] Status:Closed by SHARON SAAVEDRA on 03/15/22 Normal [facility] CBC W Auto Differential pane l (Bld)on 03-10-2022 Basophils (Bld) [#/Vol] 0.05 10*3/uL Normal <0.11 [facility] Comment on above: Order Comment: Speci men Type: BLOOD SPECIMEN Ordering Facility: [facility] Address: [address] [place] [address] Performed By: #### 5 7021-8 #### [facility] CLIA [id number] [address] [place] [address]351 Basophils/100 WBC (Bld) 0.8 % Normal [facility] Comment on above: Order Comment: Speci men Type: BLOOD SPECIMEN Ordering Facility: [facility] Address: [address] [place] [address] Performed By: #### 5 7021-8 #### [facility] CLIA [id number] [address] [place] [address] 20333 Differential cell count method Nom (Bld) Auto Normal [facility] Comment on above: Order Comment: Speci men Type: BLOOD SPECIMEN Ordering Facility: [facility] Address: [address] [place] [address] Performed By: #### 5 7021-8 #### [facility] CLIA [id number] [address] [place] [address] 08095 Eosinophils (Bld) [#/Vol] 0.15 10*3/uL Normal <0.46 [facility] Comment on above: Order Comment: Speci men Type: BLOOD SPECIMEN Ordering Facility: [facility] Address: [address] [address] Performed By: #### 5 7021-8 #### [facility] CLIA [id number] [address] [place] [address] Eosinophils/100 WBC (Bld) 2.3 % Normal [facility] Comment on above: Order Comment: Speci men Type: BLOOD SPECIMEN Ordering Facility: [facility] Address: [address] [place] [address] Performed By: #### 5 7021-8 #### [facility] CLIA [id number] [address] [place] [address] Erythrocyte distribution width (RBC) [Ratio] 17.4 % High 11.5-15.0 [facility] Comment on above: Order Comment: Speci men Type: BLOOD SPECIMEN Ordering Facility: [facility] Address: [address] [place] [address] Performed By: #### 5 7021-8 #### [facility] CLIA [id number] [address] [place] [address] Hematocrit (Bld) [Volume fraction] 29.4 % Low 36.0-46.0 [facility] Comment on above: Order Comment: Speci men Type: BLOOD SPECIMEN Ordering Facility: [facility] Address: [address] [place] [address] Performed By: #### 5 7021-8 #### [facility] CLIA [id number] [address] [place] [address]852 Hemoglobin (Bld) [Mass/Vol] 8.5 g/dL Low 11.5-15.5 [facility] Comment on above: Order Comment: Speci men Type: BLOOD SPECIMEN Ordering Facility: [facility] Address: [address] [place] [address] Performed By: #### 5 7021-8 #### [facility] CLIA [id number] [address] [place] [address] IMMATURE GRAN % 0.3 % Normal [facility] Comment on above: Order Comment: Speci men Type: BLOOD SPECIMEN Ordering Facility: [facility] Address: [address] [place] [address] Performed By: #### 5 7021-8 #### [facility] CLIA [id number] [address] [place] [address] IMMATURE GRAN ABS <0.03 Normal <0.10 [facility] Comment on above: Order Comment: Speci men Type: BLOOD SPECIMEN Ordering Facility: [facility] Address: [address] [place] [address] Performed By: #### 5 7021-8 #### [facility] CLIA [id number] [address] [place] [address]17 Lymphocytes (Bld) [#/Vol] 3.62 10*3/uL Normal 1.00-4.00 [facility] Comment on above: Order Comment: Speci men Type: BLOOD SPECIMEN Ordering Facility: [facility] Address: [address] [place] [address] Performed By: #### 5 7021-8 #### [facility] CLIA [id number] [address] [place] [address] 47390 Lymphocytes/100 WBC (Bld) 54.8 % Normal [facility] Comment on above: Order Comment: Speci men Type: BLOOD SPECIMEN Ordering Facility: [facility] Address: [address] [place], [place] [address] Performed By: #### 5 7021-8 #### [facility] CLIA [id number] [address] [place] [address] 32541 MCH (RBC) [Entitic mass] 20.3 pg Low 26.0-34.0 [facility] Comment on above: Order Comment: Speci men Type: BLOOD SPECIMEN Ordering Facility: [facility] Address: [address] [place] [address] Performed By: #### 5 7021-8 #### [facility] CLIA [id number] [address] [place] [address] MCHC (RBC) [Mass/Vol] 28.9 g/dL Low 30.5-36.0 [facility] Comment on above: Order Comment: Speci men Type: BLOOD SPECIMEN Ordering Facility: [facility] Address: [address] [place] [address] Performed By: #### 5 7021-8 #### [facility] CLIA [id number] [address] [place] [address] 11703 MCV (RBC) [Entitic vol] 70.3 fL Low 80.0-100.0 C [facility] Comment on above: Order Comment: Speci men Type: BLOOD SPECIMEN Ordering Facility: [facility] Address: [address] [place] [address] Performed By: #### 5 7021-8 #### [facility] CLIA [id number] [address] [place] [address]271 Monocytes (Bld) [#/Vol] 0.38 10*3/uL Normal <0.87 [facility] Comment on above: Order Comment: Speci men Type: BLOOD SPECIMEN Ordering Facility: [facility] Address: [address] [place] [address] Performed By: #### 5 7021-8 #### [facility] CLIA [id number] [address] [place] [address] 25139 Monocytes/100 WBC (Bld) 5.7 % Normal C [facility] Comment on above: Order Comment: Speci men Type: BLOOD SPECIMEN Ordering Facility: [facility] Address: [address] [place] [address] Performed By: #### 5 7021-8 #### [facility] CLIA [id number] [address] [place] [address] 48301 Neutrophils (Bld) [#/Vol] 2.39 10*3/uL Normal 1.45-7.50 [facility] Comment on above: Order Comment: Speci men Type: BLOOD SPECIMEN Ordering Facility: [facility] Address: [address] [address] Performed By: #### 5 7021-8 #### [facility] CLIA [id number] [address] [place] [address]278 Neutrophils/100 WBC (Bld) 36.1 % Normal [facility] Comment on above: Order Comment: Speci men Type: BLOOD SPECIMEN Ordering Facility: [facility] Address: [address] [place] [address] Performed By: #### 5 7021-8 #### [facility] CLIA [id number] [address] [place] [address] 12387 Nucleated RBC (Bld) [#/Vol] 10*3/uL Normal <0.01 [facility] Comment on above: Order Comment: Speci men Type: BLOOD SPECIMEN Ordering Facility: [facility] Address: [address] [place] [address] Performed By: #### 5 7021-8 #### [facility] CLIA [id number] [address] [place] [address] 14436 Nucleated RBC/100 WBC (Bld) [Ratio] 0.0 /100 WBC Normal [facility] Comment on above: Order Comment: Speci men Type: BLOOD SPECIMEN Ordering Facility: [facility] Address: [address] [place] [address] Performed By: #### 5 7021-8 #### [facility] CLIA [id number] [address] [place] [address] 64387 Platelet mean volume (Bld) [Entitic vol] 8.8 fL Low 9.0-12.7 [facility] Comment on above: Order Comment: Speci men Type: BLOOD SPECIMEN Ordering Facility: [facility] Address: [address] [place], [place] [address] Performed By: #### 5 7021-8 #### [facility] CLIA [id number] [address] [place] [address] 33178 Platelets (Bld) [#/Vol] 419 10*3/uL High 150-400 [facility] Comment on above: Order Comment: Speci men Type: BLOOD SPECIMEN Ordering Facility: [facility] Address: [address] [place] [address] Performed By: #### 5 7021-8 #### [facility] CLIA [id number] [address] [place] [address] 40945 RBC (Bld) [#/Vol] 4.18 10*6/uL Normal 3.90-5.20 [facility] Comment on above: Order Comment: Speci men Type: BLOOD SPECIMEN Ordering Facility: [facility] Address: [address] [place] [address] Performed By: #### 5 7021-8 #### [facility] CLIA [id number] [address] [place] [address] 09996 WBC (Bld) [#/Vol] 6.61 10*3/uL Normal 3.70-11.00 [facility] Comment on above: Order Comment: Speci men Type: BLOOD SPECIMEN Ordering Facility: [facility] Address: [address] [place] [address] Performed By: #### 5 7021-8 #### [facility] CLIA [id number] [address] [place] [address] 08272 CNOVSPon 03-10-2022 CNOVSP Visit (SP) Office (HEMASA) LIVIA NOYOLA ([id number]) 1985 F Date Time Provider Department 03/10/22 2:00 PM GIL NI During your visit today, we recorded the following information about you: Temperature Pulse Respiration Blood pressure 97.9 degrees 95/minute 16/minute 130/75 Weight Height 83.4 kg 1.651 m Gil Ni APRN.CNP 03/10/2022 2:25 PM Signed NAME: Livia Noyola NO.: [id number] DATE OF SERVICE: March 10, 2022 (Elements [...] 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 Recent laboratories from [facility] October 04, 2020 show hemoglobin of 11.6 [...] to chronic (more content not included)... Normal [facility] Comprehensive metabolic 2000 panelon 03-10-2022 Albumin [Mass/Vol] 4.0 g/dL Normal 3.9-4.9 [facility] Comment on above: Order Comment: Speci men Type: BLOOD SPECIMEN Ordering Facility: [facility] Address: [address] [place] [address] Performed By: #### 2 4323-8 #### [facility] CLIA [id number] [address] [place] [address] ALP [Catalytic activity/Vol] 55 U/L Normal 34-123 [facility] Comment on above: Order Comment: Speci men Type: BLOOD SPECIMEN Ordering Facility: [facility] Address: [address] [place] [address] Performed By: #### 2 4323-8 #### [facility] CLIA [id number] [address] [place] [address] ALT [Catalytic activity/Vol] 12 U/L Normal 7-38 [facility] Comment on above: Order Comment: Speci men Type: BLOOD SPECIMEN Ordering Facility: [facility] Address: [address] [place] [address] Performed By: #### 2 4323-8 #### [facility] CLIA [id number] [address] [place] [address] Anion gap [Moles/Vol] 9 mmol/L Normal 9-18 [facility] Comment on above: Order Comment: Speci men Type: BLOOD SPECIMEN Ordering Facility: [facility] Address: [address] [place] [address] Performed By: #### 2 4323-8 #### [facility] CLIA [id number] [address] [place] [address] AST [Catalytic activity/Vol] 14 U/L Normal 13-35 [facility] Comment on above: Order Comment: Speci men Type: BLOOD SPECIMEN Ordering Facility: [facility] Address: [address] Performed By: #### 2 4323-8 #### [facility] CLIA [id number] [address] [place] [address] Bilirubin [Mass/Vol] 0.3 mg/dL Normal 0.2-1.3 [facility] Comment on above: Order Comment: Speci men Type: BLOOD SPECIMEN Ordering Facility: [facility] Address: [address] [place], [place] [address] Performed By: #### 2 4323-8 #### [facility] CLIA [id number] [address] [place] [address] Calcium [Mass/Vol] 8.8 mg/dL Normal 8.5-10.2 [facility] Comment on above: Order Comment: Speci men Type: BLOOD SPECIMEN Ordering Facility: [facility] Address: [address] [place], [place] [address] Performed By: #### 2 4323-8 #### [facility] CLIA [id number] [address] [place] [address] Chloride [Moles/Vol] 105 mmol/L Normal 97-105 [facility] Comment on above: Order Comment: Speci men Type: BLOOD SPECIMEN Ordering Facility: [facility] Address: [address] Performed By: #### 2 4323-8 #### [facility] CLIA [id number] [address] [place] [address] CO2 [Moles/Vol] 24 mmol/L Normal 22-30 [facility] Comment on above: Order Comment: Speci men Type: BLOOD SPECIMEN Ordering Facility: [facility] Address: [address] [place], [place] [address] Performed By: #### 2 4323-8 #### [facility] CLIA [id number] [address] [place] [address] Creatinine [Mass/Vol] 0.65 mg/dL Normal 0.58-0.96 [facility] Comment on above: Order Comment: Roselyn conway Type: BLOOD SPECIMEN Ordering Facility: [facility] Address: [address] [place], [place] [address] Performed By: #### 2 4323-8 #### [facility] CLIA [id number] [address] [place] [address] ESTIMATED GLOMERULAR FILTRATION RATE 118 mL/min/1.73m??? Normal >=60 [facility] Comment on above: Order Comment: Roselyn conway Type: BLOOD SPECIMEN Ordering Facility: [facility] Address: [address] [place] [address] Result Comment: Shelley mated Glomerular Filtration Rate [...] GFR. Performed By: #### 2 4323-8 #### [facility] CLIA [id number] [address] [place] [address] Glucose [Mass/Vol] 109 mg/dL High 74-99 [facility] Comment on above: Order Comment: Roselyn conway Type: BLOOD SPECIMEN Ordering Facility: [facility] Address: [address] [place] [address] Result Comment: The [place] [employer] (ADA) provides guidance for cutoff [...] Standards of Medical Care in Diabetes 2016, [place] [employer]. Diabetes Care. 2016.39(Suppl 1). Performed By: #### 2 4323-8 #### [facility] CLIA [id number] [address] [place] [address] Potassium [Moles/Vol] 3.4 mmol/L Low 3.7-5.1 [facility] Comment on above: Order Comment: Speci men Type: BLOOD SPECIMEN Ordering Facility: [facility] Address: [address] [place] [address] Performed By: #### 2 4323-8 #### [facility] CLIA [id number] [address] [place] [address] Protein [Mass/Vol] 6.5 g/dL Normal 6.3-8.0 [facility] Comment on above: Order Comment: Speci men Type: BLOOD SPECIMEN Ordering Facility: [facility] Address: [address] [place] [address] Performed By: #### 2 4323-8 #### [facility] CLIA [id number] [address] [place] [address] Sodium [Moles/Vol] 138 mmol/L Normal 136-144 [facility] Comment on above: Order Comment: Speci men Type: BLOOD SPECIMEN Ordering Facility: [facility] Address: [address] [place] [address] Performed By: #### 2 4323-8 #### [facility] CLIA [id number] [address] [place] [address] Urea nitrogen [Mass/Vol] 8 mg/dL Normal 7-21 [facility] Comment on above: Order Comment: Speci men Type: BLOOD SPECIMEN Ordering Facility: [facility] Address: [facility] [place] [address] Performed By: #### 2 4323-8 #### [facility] CLIA [id number] [address] [place] [address] Ferritin SerPl-mCncon 2021 Ferritin [Mass/Vol] 5.4 ng/mL Low 14.7-205.1 [facility] Comment on above: Order Comment: Speci men Type: BLOOD SPECIMEN Ordering Facility: [facility] Address: [address] [place], [place] [address] Performed By: #### 5 0190-8, 2131-9, 2283-8, 2275-4 #### [facility] CLIA [id number] [address] [place] [address] [place] Folate SerPl-mCncon 03-10-20 Folate [Mass/Vol] 8.7 ng/mL Normal >4.7 [facility] Comment on above: Order Comment: Speci men Type: BLOOD SPECIMEN Ordering Facility: [facility] Address: [address] [place] [address] Performed By: #### 5 0190-8, 9, 8, 2275-4 #### [facility] CLIA [id number] [address] [place] [address] [place] Iron and Iron binding capaci ty panelon 03-10-2022 Iron [Mass/Vol] 17 ug/dL Low 41-186 [facility] Comment on above: Order Comment: Speci men Type: BLOOD SPECIMEN Ordering Facility: [facility] Address: [address] [place], [place] [address] Performed By: #### 5 0190-8, 9, 2283-8, 2275-4 #### [facility] CLIA [id number] [address] [place] [address] [place] Iron binding capacity [Mass/Vol] 422 ug/dL High 232-386 [facility] Comment on above: Order Comment: Speci men Type: BLOOD SPECIMEN Ordering Facility: [facility] Address: [address] [place], [place] [phone] Performed By: #### 5 0190-8, 9, 2283-8, 2275-4 #### [facility] CLIA [id number] [address] [place] [address] [place] Iron/TIBC [Molar ratio] 4.0 % Low 15.0-57.0 [facility] Comment on above: Order Comment: Roselyn conway Type: BLOOD SPECIMEN Ordering Facility: [facility] Address: [address] [place] [address] Performed By: #### 5 0190-8, 2131-9, 2283-8, 6-4 #### [facility] CLIA [id number] [address] [place] [address] [place] Vit B12 [facility] 03-10-2 022 Cobalamin (Vitamin B12) [Mass/Vol] 367 pg/mL Normal 232-1245 [facility] Comment on above: Order Comment: Spectigre conway Type: BLOOD SPECIMEN Ordering Facility: [facility] Address: [address] [place] [address] Performed By: #### 5 0190-8, 2131-9, 2283-8, 2275-4 #### [facility] CLIA [id number] [address] [place] [address] [place] Andrew 02-18-2022 CNPN Telephone (HEMBRITTANY) LIVIA NOYOLA ([id number]) 1985 F Date Time Provider Department 02/18/22 [...] [D50.0] Order(s):CBC + DIFF [SQCBCDIF] Order #: [id number] FUTURE COMP METABOLIC PANEL [SQCMP] Order #: [id number] FUTURE IRON + TIBC [SQIRON] Order #: [id number] FUTURE FERRITIN BLD [SQFERR] Order #: [id number] FUTURE VITAMIN B12 BLOOD [SQB12] Order #: [id number] FUTURE FOLATE SERUM [SQSERFOL] Order #: [id number] FUTURE Prescriptions as of 02/20/2022 - ALPRAZolam [...] Status:Closed by GRUPO REID on 02/20/22 Normal [facility] Basophils Auto (Bld) [#/Vol] Ordered By: Jennifer Duran on 02-12-2022 Basophils (Bld) [#/Vol] 0.1 10*3/uL 0.0-0.2 [facility] Basophils/100 WBC Auto (Bld) Ordered By: Jennifer Duran on 02-12-2022 Basophils/100 WBC (Bld) 1.0 % . F [facility] Blood anisocytosis detection Ordered By: Jennifer Duran on 02-12-2022 Anisocytosis Ql (Bld) Moderate [facility] Blood hemoglobin measurement (mass/volume)Ordered By: Jennifer Duran on 02-12-2022 Hemoglobin (Bld) [Mass/Vol] 8.5 g/dL 11.8-15.4 [facility] Blood leukocytes automated c ount (number/volume)Ordered By: Jennifer Duran on 02-12-2022 WBC (Bld) [#/Vol] 5.9 10*3/uL 4.5-11.0 [facility] Body fluid albumin measureme nt (mass/volume)Ordered By: Jennifer Duran on 02-12-2022 Albumin (Body fld) [Mass/Vol] 3.7 g/dL 3.2-5.5 [facility] CT biopsyOrdered By: Jennifer avila on 02-12-2022 Transferrin [Mass/Vol] 356 mg/dL 180-380 [facility] Creatinine and Glomerular fi ltration rate.predicted panel (S/P/Bld)Ordered By: Jennifer Duran on 02-12-2022 Creatinine [Mass/Vol] 0.72 mg/dL 0.44-1.03 [facility] Eosinophils Auto (Bld) [#/Vo l]Ordered By: Jennifer Duran on 02-12-2022 Eosinophils (Bld) [#/Vol] 0.1 10*3/uL 0.0-0.45 [facility] Eosinophils/100 WBC Auto (Bl d)Ordered By: Jennifer Duran on 02-12-2022 Eosinophils/100 WBC (Bld) 2.2 % . [facility] Erythrocyte distribution wid th Auto (RBC) [Ratio]Ordered By: Jennifer Duran on 02-12-2022 Erythrocyte distribution width (RBC) [Ratio] 17.3 % 11.9-15.3 [facility] Estimated glomerular filtrat ion rate (GFR) non- AmericanOrdered By: Jennifer Duran on 02-12-2022 GFR/1.73 sq M.predicted among non-blacks MDRD (S/P/Bld) [Vol rate/Area] > 60 mL/Min [facility] Ferritin [Mass/volume] in Se rum or PlasmaOrdered By: Jennifer Duran on 02-12-2022 Ferritin [Mass/Vol] 5.1 ng/mL 11-306.8 [facility] Globulin Calc (S) [Mass/Vol] Ordered By: Jennifer Duran on 02-12-2022 Globulin (S) [Mass/Vol] 2.9 g/dL F [facility] Hematocrit Auto (Bld) [Volum e fraction]Ordered By: Jennifer Duran on 02-12-2022 Hematocrit (Bld) [Volume fraction] 27.9 % 34.0-46.4 [facility] Hypochromia detectionOrdered By: Jennifer Duran on 02-12-2022 Hypochromia Ql (Bld) Slight [facility] Iron [Mass/volume] in Serum or PlasmaOrdered By: Jennifer Duran on 02-12-2022 Iron [Mass/Vol] 11 ug/dL 40-150 [facility] Iron binding capacity [Mass/ volume] in Serum or PlasmaOrdered By: Jennifer Duran on 02-12-2022 Iron binding capacity [Mass/Vol] 498 ug/dL 255-450 [facility] Iron saturation [Mass Fracti on] in Serum or PlasmaOrdered By: Jennifer Duran on 02-12-2022 Iron saturation [Mass fraction] 2.0 % 20-50 [facility] Laboratory - Hematology and Cell countsOrdered By: Jennifer Duran on 02-12-2022 Nucleated RBC/100 WBC (Bld) [Ratio] 0.3 % 0-0.5 [facility] Lymphocytes Auto (Bld) [#/Vo l]Ordered By: Jennifer Duran on 02-12-2022 Lymphocytes (Bld) [#/Vol] 3.0 10*3/uL 1.00-4.8 [facility] Lymphocytes/100 WBC Auto (Bl d)Ordered By: Jennifer Duran on 02-12-2022 Lymphocytes/100 WBC (Bld) 50.8 % . [facility] MCH Auto (RBC) [Entitic mass ]Ordered By: Jennifer Duran on 02-12-2022 MCH (RBC) [Entitic mass] 20.1 pg 24.7-34.3 [facility] MCHC Auto (RBC) [Mass/Vol]Or dered By: Jennifer Duran on 02-12-2022 MCHC (RBC) [Mass/Vol] 30.4 g/dL 32.0-35.0 [facility] MCV Auto (RBC) [Entitic vol] Ordered By: Jennifer Duran on 02-12-2022 MCV (RBC) [Entitic vol] 66.3 fL 80-100 [facility] Monocytes Auto (Bld) [#/Vol] Ordered By: Jennifer Duran on 02-12-2022 Monocytes (Bld) [#/Vol] 0.3 10*3/uL 0.0-0.8 [facility] Monocytes/100 WBC Auto (Bld) Ordered By: Jennifer Duran on 02-12-2022 Monocytes/100 WBC (Bld) 5.7 % . [facility] Neutrophils Auto (Bld) [#/Vo l]Ordered By: Jennifer Duran on 02-12-2022 Neutrophils (Bld) [#/Vol] 2.4 10*3/uL 1.8-7.7 [facility] Neutrophils/100 WBC Auto (Bl d)Ordered By: Jennifer Duran on 02-12-2022 Neutrophils/100 WBC (Bld) 40.3 % . [facility] No Panel InformationOrdered By: Jennifer Duran on 02-12-2022 Estimated GFR () > 60 mL/Min [facility] Comment on above: GFR estimated refere nce range: According to KDOQI guidelines, <60 ml/min/1.73m2 is sufficient to diagnose a patient with chronic kidney disease. Microcytosis Moderate [facility] Pharmacy Creatinine Clearance (Chem N/A [facility] Platelet Estimate Normal Normal [facility] Platelet Morphology Comment Normal Normal [facility] Platelet mean volume Auto (B ld) [Entitic vol]Ordered By: Jennifer Duran on 02-12-2022 Platelet mean volume (Bld) [Entitic vol] 8.1 fL 6.3-10.7 [facility] Platelets Auto (Bld) [#/Vol] Ordered By: Jennifer Duran on 02-12-2022 Platelets (Bld) [#/Vol] 459 10*3/uL 150-450 [facility] Protein [Mass/volume] in Ser um or PlasmaOrdered By: Jennifer Duran on 02-12-2022 Protein [Mass/Vol] 6.6 g/dL 6.1-7.9 [facility] RBC Auto (Bld) [#/Vol]Ordere d By: Jennifer Duran on 02-12-2022 RBC (Bld) [#/Vol] 4.20 10*6/uL 3.60-5.00 [facility] RBC morphologyOrdered By: Pool Duran on 02-12-2022 RBC morphology finding Nom (Bld) N/A [facility] Serum or plasma alanine syed otransferase measurement without P-5'-P (enzymatic activiOrdered By: Jennifer Duran on 02-12-2022 ALT No additional P-5'-P [Catalytic activity/Vol] 69 U/L 10-60 [facility] Serum or plasma albumin/glob ulin mass ratioOrdered By: Jennifer Duran on 02-12-2022 Albumin/Globulin [Mass ratio] 1.3 {ratio} [facility] Serum or plasma alkaline zeeshan sphatase measurement (enzymatic activity/volume)Ordered By: Jennfier Duran on 02-12-2022 ALP [Catalytic activity/Vol] 73 U/L 32-92 [facility] Serum or plasma anion gap de terminationOrdered By: Jennifer Duran on 02-12-2022 Anion gap [Moles/Vol] 13.2 mmol/L 6.0-15.0 [facility] Serum or plasma aspartate am inotransferase measurement (enzymatic activity/volume)Ordered By: Jennifer Duran on 02-12-2022 AST [Catalytic activity/Vol] 42 U/L 10-42 [facility] Serum or plasma calcium donaldo urement (mass/volume)Ordered By: Jennifer Duran on 02-12-2022 Calcium [Mass/Vol] 9.3 mg/dL 8.2-10.2 [facility] Serum or plasma chloride claudia surement (moles/volume)Ordered By: Jennifer Duran on 02-12-2022 Chloride [Moles/Vol] 101 mmol/L 95-114 [facility] Serum or plasma glucose donaldo urement (mass/volume)Ordered By: Jennifer Duran on 02-12-2022 Glucose [Mass/Vol] 98 mg/dL 70-100 [facility] Comment on above: ADA recommended refe rence [...] on 02-12-2022 Potassium [Moles/Vol] 3.6 mmol/L 3.5-5.1 [facility] Serum or plasma sodium measu rement (moles/volume)Ordered By: Jennifer Duran on 02-12-2022 Sodium [Moles/Vol] 136 mmol/L 136-146 [facility] Serum or plasma total biliru bin measurement (mass/volume)Ordered By: Jennifer Duran on 02-12-2022 Bilirubin [Mass/Vol] 0.4 mg/dL 0.3-1.2 [facility] Serum or plasma total carbon dioxide measurement (moles/volume)Ordered By: Jennifer Duran on 02-12-2022 CO2 [Moles/Vol] 25.4 mmol/L 22.0-30.[address] [facility] Serum or plasma urea nitroge n measurement (mass/volume)Ordered By: Jennifer Duran on 02-12-2022 Urea nitrogen [Mass/Vol] 4 mg/dL 9-23 [facility] Basophils Auto (Bld) [#/Vol] Ordered By: Kendra Persaud on 09-14-2021 Basophils (Bld) [#/Vol] 0.1 10*3/uL 0.0-0.2 [facility] Basophils/100 WBC Auto (Bld) Ordered By: Kendra Persaud on 09-14-2021 Basophils/100 WBC (Bld) 1.3 % [facility] Bilirubin Test strip Ql (U)O rdered By: Kendra Persaud on 09-14-2021 Bilirubin Ql (U) Negative Negative [facility] Blood hemoglobin measurement (mass/volume)Ordered By: Kendra Persaud on 09-14-2021 Hemoglobin (Bld) [Mass/Vol] 9.7 g/dL 11.8-15.4 [facility] Blood leukocytes automated c ount (number/volume)Ordered By: Kendra Persaud on 09-14-2021 WBC (Bld) [#/Vol] 8.9 10*3/uL 4.5-11.0 [facility] Body fluid albumin measureme nt (mass/volume)Ordered By: Kendra Persaud on 09-14-2021 Albumin (Body fld) [Mass/Vol] 3.7 g/dL 3.2-5.5 [facility] Color Auto (U)Ordered By: Jazmin Persaud on 09-14-2021 Color (U) Yellow Yellow [facility] Creatinine and Glomerular fi ltration rate.predicted panel (S/P/Bld)Ordered By: Kendra Persaud on 09-14-2021 Creatinine [Mass/Vol] 0.71 mg/dL 0.44-1.03 [facility] Eosinophils Auto (Bld) [#/Vo l]Ordered By: Kendra Persaud on 09-14-2021 Eosinophils (Bld) [#/Vol] 0.0 10*3/uL 0.0-0.45 [facility] Eosinophils/100 WBC Auto (Bl d)Ordered By: Kendra Persaud on 09-14-2021 Eosinophils/100 WBC (Bld) 0.4 % [facility] Erythrocyte distribution wid th Auto (RBC) [Ratio]Ordered By: Kendra Persaud on 09-14-2021 Erythrocyte distribution width (RBC) [Ratio] 17.0 % 11.9-15.3 [facility] Estimated glomerular filtrat ion rate (GFR) non- AmericanOrdered By: Kendra Persaud on 09-14-2021 GFR/1.73 sq M.predicted among non-blacks MDRD (S/P/Bld) [Vol rate/Area] > 60 mL/Min [facility] Globulin Calc (S) [Mass/Vol] Ordered By: Kendra Persaud on 09-14-2021 Globulin (S) [Mass/Vol] 3.2 g/dL F [facility] HCG ( test) IA.rapi d Ql (U)Ordered By: Kendra Persaud on 09-14-2021 HCG ( test) Ql (U) Negative [facility] Hematocrit Auto (Bld) [Volum e fraction]Ordered By: Kendra Persaud on 09-14-2021 Hematocrit (Bld) [Volume fraction] 31.9 % 34.0-46.4 [facility] Ketones Auto test strip (U) [Mass/Vol]Ordered By: Kendra Persaud on 09-14-2021 Ketones (U) [Mass/Vol] Negative Negative [facility] Laboratory - Chemistry and C hemistry - challengeOrdered By: Kendra Persaud on 09-14-2021 Lipase [Catalytic activity/Vol] 36.0 U/L 22-51 [facility] Laboratory - Hematology and Cell countsOrdered By: Kendra Persaud on 09-14-2021 Nucleated RBC/100 WBC (Bld) [Ratio] 0.0 % 0-0.5 [facility] Lymphocytes Auto (Bld) [#/Vo l]Ordered By: Kendra Persaud on 09-14-2021 Lymphocytes (Bld) [#/Vol] 4.1 10*3/uL 1.00-4.8 [facility] Lymphocytes/100 WBC Auto (Bl d)Ordered By: Kendra Persaud on 09-14-2021 Lymphocytes/100 WBC (Bld) 45.7 % [facility] MCH Auto (RBC) [Entitic mass ]Ordered By: Kendra Persaud on 09-14-2021 MCH (RBC) [Entitic mass] 21.3 pg 24.7-34.3 [facility] MCHC Auto (RBC) [Mass/Vol]Or dered By: Kendra Persaud on 09-14-2021 MCHC (RBC) [Mass/Vol] 30.4 g/dL 32.0-35.0 [facility] MCV Auto (RBC) [Entitic vol] Ordered By: Kendra Persaud on 09-14-2021 MCV (RBC) [Entitic vol] 70.0 fL 80-100 [facility] Monocytes Auto (Bld) [#/Vol] Ordered By: Kendra Persaud on 09-14-2021 Monocytes (Bld) [#/Vol] 0.7 10*3/uL 0.0-0.8 [facility] Monocytes/100 WBC Auto (Bld) Ordered By: Kendra Persaud on 09-14-2021 Monocytes/100 WBC (Bld) 7.8 % [facility] Neutrophils Auto (Bld) [#/Vo l]Ordered By: Kendra Persaud on 09-14-2021 Neutrophils (Bld) [#/Vol] 4.0 10*3/uL 1.8-7.7 [facility] Neutrophils/100 WBC Auto (Bl d)Ordered By: Kendra Persaud on 09-14-2021 Neutrophils/100 WBC (Bld) 44.8 % [facility] Nitrite Test strip Ql (U)Ord ered By: Kendra Persaud on 09-14-2021 Nitrite Ql (U) Negative Negative [facility] No Panel InformationOrdered By: Kendra Persaud on 09-14-2021 Estimated GFR () > 60 mL/Min [facility] Comment on above: GFR estimated refere nce range: According to KDOQI guidelines, <60 ml/min/1.73m2 is sufficient to diagnose a patient with chronic kidney disease. Pharmacy Creatinine Clearance (Chem 119.44 [facility] Platelet mean volume Auto (B ld) [Entitic vol]Ordered By: Kendra Persaud on 09-14-2021 Platelet mean volume (Bld) [Entitic vol] 7.4 fL 6.3-10.7 [facility] Platelets Auto (Bld) [#/Vol] Ordered By: Kendra Persaud on 09-14-2021 Platelets (Bld) [#/Vol] 604 10*3/uL 150-450 [facility] Protein Auto test strip (U) [Mass/Vol]Ordered By: Kendra Persaud on 09-14-2021 Protein (U) [Mass/Vol] Negative [facility] Protein [Mass/volume] in Ser um or PlasmaOrdered By: Kendra Persaud on 09-14-2021 Protein [Mass/Vol] 6.9 g/dL 6.1-7.9 [facility] RBC Auto (Bld) [#/Vol]Ordere d By: Kendra Persaud on 09-14-2021 RBC (Bld) [#/Vol] 4.55 10*6/uL 3.60-5.00 [facility] Serum or plasma alanine syed otransferase measurement without P-5'-P (enzymatic activiOrdered By: Kendra Persaud on 09-14-2021 ALT No additional P-5'-P [Catalytic activity/Vol] 16 U/L 10-60 [facility] Serum or plasma albumin/glob ulin mass ratioOrdered By: Kendra Persaud on 09-14-2021 Albumin/Globulin [Mass ratio] 1.2 {ratio} [facility] Serum or plasma alkaline zeeshan sphatase measurement (enzymatic activity/volume)Ordered By: Kendra Persaud on 09-14-2021 ALP [Catalytic activity/Vol] 48 U/L 32-92 [facility] Serum or plasma aspartate am inotransferase measurement (enzymatic activity/volume)Ordered By: Kendra Persaud 09-14-2021 AST [Catalytic activity/Vol] 17 U/L 10-42 [facility] Serum or plasma calcium donaldo urement (mass/volume)Ordered By: Kendra Persaud on 09-14-2021 Calcium [Mass/Vol] 9.0 mg/dL 8.2-10.2 [facility] Serum or plasma chloride claudia surement (moles/volume)Ordered By: Kendra Persaud on 09-14-2021 Chloride [Moles/Vol] 105 mmol/L 95-114 [facility] Serum or plasma glucose donaldo urement (mass/volume)Ordered By: Kendra Persaud on 09-14-2021 Glucose [Mass/Vol] 94 mg/dL 70-100 [facility] Comment on above: ADA recommended refe rence rangeRandom Glucose Reference Range is dependent on time and content of last meal. Glucose of more than 200 mg/dL in a nonstressed, ambulatory subject supports the diagnosis of Diabetes Mellitus. Serum or plasma potassium me asurement (moles/volume)Ordered By: Kendra Persaud on 09-14-2021 Potassium [Moles/Vol] 3.1 mmol/L 3.5-5.1 [facility] Serum or plasma sodium measu rement (moles/volume)Ordered By: Kendra Persaud on 09-14-2021 Sodium [Moles/Vol] 139 mmol/L 136-146 [facility] Serum or plasma total biliru bin measurement (mass/volume)Ordered By: Kendra Persaud on 09-14-2021 Bilirubin [Mass/Vol] 0.5 mg/dL 0.3-1.2 [facility] Serum or plasma total carbon dioxide measurement (moles/volume)Ordered By: Kendra Persaud on 09-14-2021 CO2 [Moles/Vol] 23.7 mmol/L 22.0-30.[address] [facility] Serum or plasma urea nitroge n measurement (mass/volume)Ordered By: Kendra Persaud on 09-14-2021 Urea nitrogen [Mass/Vol] 4 mg/dL 9-23 [facility] Specific gravity Auto test s trip (U) [Rel density]Ordered By: Kendra Persaud on 09-14-2021 Specific gravity (U) [Rel density] 1.004 1.001-1.030 [facility] Urine clarity by refractomet ry automatedOrdered By: Kendra Persaud 09-14-2021 Clarity Refractometry automated (U) Clear Clear [facility] Urine glucose measurement by automated test strip (mass/volume)Ordered By: Kendra Persaud on 09-14-2021 Glucose Auto test strip (U) [Mass/Vol] Normal mg/dL Normal [facility] Urine hemoglobin detection b y automated test stripOrdered By: Kendra Persaud on 09-14-2021 Hemoglobin Auto test strip Ql (U) Negative Negative [facility] Urine leukocyte esterase det ection by automated test stripOrdered By: Kendra Persaud on 09-14-2021 Leukocyte esterase Auto test strip Ql (U) Negative Negative [facility] Urobilinogen Auto test strip (U) [Mass/Vol]Ordered By: Kendra Persaud on 09-14-2021 Urobilinogen (U) [Mass/Vol] Normal mg/dL Normal [facility] pH Auto test strip (U)Ordere d By: Kendra Persaud on 09-14-2021 pH (U) 6.5 [pH] 5.0-9.0 [facility] Basophils Auto (Bld) [#/Vol] Ordered By: Augustus Santiago on 07-04-2021 Basophils (Bld) [#/Vol] 0.1 10*3/uL 0.0-0.2 [facility] Basophils/100 WBC Auto (Bld) Ordered By: Augustus Santiago on 07-04-2021 Basophils/100 WBC (Bld) 0.9 % [facility] Blood hemoglobin measurement (mass/volume)Ordered By: Augustus Santiago on 07-04-2021 Hemoglobin (Bld) [Mass/Vol] 10.2 g/dL 11.8-15.4 [facility] Blood leukocytes automated c ount (number/volume)Ordered By: Augustus Santiago on 07-04-2021 WBC (Bld) [#/Vol] 6.6 10*3/uL 4.5-11.0 [facility] CT biopsyOrdered By: Augustus powell on 07-04-2021 Transferrin [Mass/Vol] 360 mg/dL 180-380 [facility] Creatinine and Glomerular fi ltration rate.predicted panel (S/P/Bld)Ordered By: Augustus Santiago on 07-04-2021 Creatinine [Mass/Vol] 0.69 mg/dL 0.44-1.03 [facility] Eosinophils Auto (Bld) [#/Vo l]Ordered By: Augustus Santiago on 07-04-2021 Eosinophils (Bld) [#/Vol] 0.1 10*3/uL 0.0-0.45 [facility] Eosinophils/100 WBC Auto (Bl d)Ordered By: Augustus Santiago on 07-04-2021 Eosinophils/100 WBC (Bld) 1.2 % [facility] Erythrocyte distribution wid th Auto (RBC) [Ratio]Ordered By: Augustus Santiago on 07-04-2021 Erythrocyte distribution width (RBC) [Ratio] 17.2 % 11.9-15.3 [facility] Estimated glomerular filtrat ion rate (GFR) non- AmericanOrdered By: Augustus Santiago on 07-04-2021 GFR/1.73 sq M.predicted among non-blacks MDRD (S/P/Bld) [Vol rate/Area] > 60 mL/Min [facility] Hematocrit Auto (Bld) [Volum e fraction]Ordered By: Augustus Santiago on 07-04-2021 Hematocrit (Bld) [Volume fraction] 32.0 % 34.0-46.4 [facility] Iron [Mass/volume] in Serum or PlasmaOrdered By: Augustus Santiago on 07-04-2021 Iron [Mass/Vol] 10 ug/dL 40-150 [facility] Iron binding capacity [Mass/ volume] in Serum or PlasmaOrdered By: Augustus Santiago on 07-04-2021 Iron binding capacity [Mass/Vol] 504 ug/dL 255-450 [facility] Iron saturation [Mass Fracti on] in Serum or PlasmaOrdered By: Augustus Santiago on 07-04-2021 Iron saturation [Mass fraction] 1.0 % 20-50 [facility] Laboratory - Hematology and Cell countsOrdered By: Augustus Santiago on 07-04-2021 Nucleated RBC/100 WBC (Bld) [Ratio] 0.0 % 0-0.5 [facility] Lymphocytes Auto (Bld) [#/Vo l]Ordered By: Augustus Santiago on 07-04-2021 Lymphocytes (Bld) [#/Vol] 1.9 10*3/uL 1.00-4.8 [facility] Lymphocytes/100 WBC Auto (Bl d)Ordered By: Augustus Santiago on 07-04-2021 Lymphocytes/100 WBC (Bld) 28.4 % [facility] MCH Auto (RBC) [Entitic mass ]Ordered By: Augustus Santiago on 07-04-2021 MCH (RBC) [Entitic mass] 22.7 pg 24.7-34.3 [facility] MCHC Auto (RBC) [Mass/Vol]Or dered By: Augustus Santiago on 07-04-2021 MCHC (RBC) [Mass/Vol] 31.9 g/dL 32.0-35.0 [facility] MCV Auto (RBC) [Entitic vol] Ordered By: Augustus Santiago on 07-04-2021 MCV (RBC) [Entitic vol] 71.3 fL 80-100 [facility] Monocytes Auto (Bld) [#/Vol] Ordered By: Augustus Santiago on 07-04-2021 Monocytes (Bld) [#/Vol] 0.5 10*3/uL 0.0-0.8 [facility] Monocytes/100 WBC Auto (Bld) Ordered By: Augustus Santiago on 07-04-2021 Monocytes/100 WBC (Bld) 7.6 % [facility] Neutrophils Auto (Bld) [#/Vo l]Ordered By: Augustus Santiago on 07-04-2021 Neutrophils (Bld) [#/Vol] 4.1 10*3/uL 1.8-7.7 [facility] Neutrophils/100 WBC Auto (Bl d)Ordered By: Augustus Santiago on 07-04-2021 Neutrophils/100 WBC (Bld) 61.9 % [facility] No Panel InformationOrdered By: Augustus Santiago on 07-04-2021 D-Dimer Quantitative (PE/DVT) < 200 ng/mL 0-243 [facility] Comment on above: The [...] conditions. Estimated GFR () > 60 mL/Min [facility] Comment on above: GFR estimated refere nce range: According to KDOQI guidelines, <60 ml/min/1.73m2 is sufficient to diagnose a patient with chronic kidney disease. Pharmacy Creatinine Clearance (Chem N/A [facility] Platelet mean volume Auto (B ld) [Entitic vol]Ordered By: Augustus Santiago on 07-04-2021 Platelet mean volume (Bld) [Entitic vol] 7.9 fL 6.3-10.7 [facility] Platelets Auto (Bld) [#/Vol] Ordered By: Augustus Santiago on 07-04-2021 Platelets (Bld) [#/Vol] 457 10*3/uL 150-450 [facility] RBC Auto (Bld) [#/Vol]Ordere d By: Augustus Santiago on 07-04-2021 RBC (Bld) [#/Vol] 4.48 10*6/uL 3.60-5.00 [facility] Serum or plasma calcium donaldo urement (mass/volume)Ordered By: Augustus Santiago on 07-04-2021 Calcium [Mass/Vol] 8.9 mg/dL 8.2-10.2 [facility] Serum or plasma chloride claudia surement (moles/volume)Ordered By: Augustus Santiago on 07-04-2021 Chloride [Moles/Vol] 105 mmol/L 95-114 [facility] Serum or plasma glucose donaldo urement (mass/volume)Ordered By: Augustus Santiago on 07-04-2021 Glucose [Mass/Vol] 110 mg/dL 70-100 [facility] Comment on above: ADA recommended refe rence rangeRandom Glucose Reference Range is dependent on time and content of last meal. Glucose of more than 200 mg/dL in a nonstressed, ambulatory subject supports the diagnosis of Diabetes Mellitus. Serum or plasma potassium me asurement (moles/volume)Ordered By: Augustus Santiago on 07-04-2021 Potassium [Moles/Vol] 3.5 mmol/L 3.5-5.1 [facility] Serum or plasma sodium measu rement (moles/volume)Ordered By: Augustus Santiago on 07-04-2021 Sodium [Moles/Vol] 136 mmol/L 136-146 [facility] Serum or plasma total carbon dioxide measurement (moles/volume)Ordered By: Augustus Santiago on 07-04-2021 CO2 [Moles/Vol] 23.0 mmol/L 22.0-30.[address] [facility] Serum or plasma urea nitroge n measurement (mass/volume)Ordered By: Augustus Santiago on 07-04-2021 Urea nitrogen [Mass/Vol] 5 mg/dL 03-05 [facility] Cardiac Stress Teston 2020 Cardiac Stress Test [facility] [address], [address], [place] [address] TRANSTHORACIC ECHOCARDIOGRAM REPORT Patient Name: LIVIA NOYOLA Reading Physician: [id number] Raphael Alas MD Study Date: 08/06/2020 Referring Physician: [id number] CANTU MRN/PID: [id number] PCP: Jennifer Duran Accession/Order#: [id number] Department Location: [facility] Date of : 1985 Fellow: Gender: F Nurse: Admit Date: Textile Science Technician: Josephine Newton RDCS, RVT Height: 165.10 cm CC Report to: Weight: 88.00 kg Study Type: Echocardiogram BSA: 1.95 m2 Diagnosis/ICD: R06.00-Dyspnea, unspecified; R00.0-Tachycardia, unspecified Indication: Obesity, Family History of CAD Procedure/CPT: Echo Complete w Full [id number] Study Detail: The following Echo studies were [...] 0.9 m/s (0.6-0.9m/s) PV Max P.0 mmHg [id number] Raphael Alas MD Electronically signed on 08/07/2020 at 4:26:[address] [facility] ([place], [place]) Vital Signs Date Time Vital Sign Value Performing Clinician Facility 07-31-2023 18:01-0500 Diastolic blood pressure 87 mm[Hg] Jignesh Dumont [facility] 07-31-2023 18:01-0500 Heart rate 121 /min Jignesh Dumont [facility] 07-31-2023 18:01-0500 Mean blood pressure 99 mm[Hg] Jignesh Dumont [facility] 07-31-2023 18:01-0500 Respiratory rate 16 /min Jignesh Dumont [facility] 07-31-2023 18:01-0500 SaO2% (BldA) [Mass fraction] 99 % Jignesh Dumont [facility] 07-31-2023 18:01-0500 Systolic blood pressure 123 mm[Hg] Jignesh Dumont [facility] 07-31-2023 17:00-0500 Diastolic blood pressure 77 mm[Hg] Jignesh Dumont [facility] 07-31-2023 17:00-0500 Heart rate 96 /min Jignesh Dumont [facility] 07-31-2023 17:00-0500 Mean blood pressure 92 mm[Hg] Jignesh Dumont [facility] 07-31-2023 17:00-0500 Systolic blood pressure 122 mm[Hg] Jignesh Tim [facility] 07-31-2023 16:07-0500 Diastolic blood pressure 90 mm[Hg] Jignesh Tim [facility] 07-31-2023 16:07-0500 Heart rate 117 /min Jignesh Tim [facility] 07-31-2023 16:07-0500 Mean blood pressure 105 mm[Hg] Jignesh Tim [facility] 07-31-2023 16:07-0500 Respiratory rate 19 /min Jignesh Tim [facility] 07-31-2023 16:07-0500 SaO2% (BldA) [Mass fraction] 100 % Jignesh Dumont [facility] 07-31-2023 16:07-0500 Systolic blood pressure 135 mm[Hg] Jignesh Tim [facility] 07-31-2023 16:06-0500 Respiratory rate 18 /min Jignesh Tim [facility] 07-31-2023 15:34-0500 Body temperature 97.88 [degF] Jignesh Tim [facility] 07-31-2023 15:34-0500 Heart rate 136 /min Jignesh Tim [facility] 07-31-2023 15:34-0500 Respiratory rate 18 /min Jignesh Tim [facility] 07-19-2023 12:40-0500 Body height 165.1 cm Jennifer Duran Other [employer] Other 04-30-2023 18:19-0500 Diastolic blood pressure 82 mm[Hg] DO Jennifer Duran Work Phone: [facility] 04-30-2023 18:19-0500 Heart rate 128 /min DO Jennifer Duran Work Phone: [facility] 04-30-2023 18:19-0500 Respiratory rate 18 /min DO Jennifer Duran Work Phone: [facility] 04-30-2023 18:19-0500 SaO2% (BldA) [Mass fraction] 99 % DO Jennifer Duran Work Phone: [facility] 04-30-2023 18:19-0500 Systolic blood pressure 116 mm[Hg] DO Jennifer Duran Work Phone: [facility] 04-30-2023 16:43-0500 Body height 165.1 cm DO Jennifer Duran Work Phone: [facility] 04-30-2023 16:43-0500 Body temperature 98.1 [degF] DO Jennifer Duran Work Phone: [facility] 04-30-2023 16:43-0500 Body weight 62.3 kg DO Jennifer Duran Work Phone: [facility] 04-24-2023 15:51-0500 Diastolic blood pressure 81 mm[Hg] Jignesh Dumont [facility] 04-24-2023 15:51-0500 Heart rate 98 /min Jignesh Dumont [facility] 04-24-2023 15:51-0500 Mean blood pressure 94 mm[Hg] Jignesh Tim [facility] 04-24-2023 15:51-0500 Respiratory rate 17 /min Jignesh Tim [facility] 04-24-2023 15:51-0500 SaO2% (BldA) [Mass fraction] 99 % Jignesh Dumont [facility] 04-24-2023 15:51-0500 Systolic blood pressure 120 mm[Hg] Jignesh Dumont [facility] 04-24-2023 15:00-0500 Diastolic blood pressure 72 mm[Hg] Jignesh Tim [facility] 04-24-2023 15:00-0500 Heart rate 85 /min Jignesh Tim [facility] 04-24-2023 15:00-0500 Mean blood pressure 87 mm[Hg] Jignesh Tim [facility] 04-24-2023 15:00-0500 Respiratory rate 16 /min Jignesh Tim [facility] 04-24-2023 15:00-0500 SaO2% (BldA) [Mass fraction] 96 % Jignesh Tim [facility] 04-24-2023 15:00-0500 Systolic blood pressure 117 mm[Hg] Jignesh Tim [facility] 04-24-2023 14:00-0500 Diastolic blood pressure 88 mm[Hg] Jignesh Tim [facility] 04-24-2023 14:00-0500 Heart rate 99 /min Jignesh Tim [facility] 04-24-2023 14:00-0500 Mean blood pressure 100 mm[Hg] Jignesh Tim [facility] 04-24-2023 14:00-0500 Respiratory rate 18 /min Jignesh Tim [facility] 04-24-2023 14:00-0500 SaO2% (BldA) [Mass fraction] 97 % Jignesh Tim [facility] 04-24-2023 14:00-0500 Systolic blood pressure 124 mm[Hg] Jignesh Tim [facility] 04-24-2023 13:29-0500 Body temperature 99.14 [degF] Jignesh Dumont [facility] 04-24-2023 13:29-0500 Heart rate 118 /min Jignesh Dumont [facility] 04-03-2023 00:20-0400 Diastolic blood pressure 70 mm[Hg] DO Jennifer Kendallivelisse Work Phone: [facility] 04-03-2023 00:20-0400 Heart rate 80 /min DO Jennifer Knedallivelisse Work Phone: [facility] 04-03-2023 00:20-0400 SaO2% (BldA) [Mass fraction] 98 % DO Jennifer Kendallivelisse Work Phone: [facility] 04-03-2023 00:20-0400 Systolic blood pressure 122 mm[Hg] DO Jennifer Duran Work Phone: [facility] 04-02-2023 21:48-0400 Diastolic blood pressure 75 mm[Hg] DO Jennifer Kendallivelisse Work Phone: [facility] 04-02-2023 21:48-0400 Heart rate 90 /min DO Jennifer Kendallivelisse Work Phone: [facility] 04-02-2023 21:48-0400 Respiratory rate 20 /min DO Jennifer Kendallivelisse Work Phone: [facility] 04-02-2023 21:48-0400 SaO2% (BldA) [Mass fraction] 98 % DO Jennifer Kendallivelisse Work Phone: [facility] 04-02-2023 21:48-0400 Systolic blood pressure 109 mm[Hg] DO Jennifer Kendallivelisse Work Phone: [facility] 04-02-2023 20:23-0400 Body height 165.1 cm DO Jennifer Kendallivelisse Work Phone: [facility] 04-02-2023 20:23-0400 Body temperature 98.2 [degF] DO Jennifer Girvin Work Phone: [facility] 04-02-2023 20:23-0400 Body weight 81.64 kg DO Jennifer Girivelisse Work Phone: [facility] 03-29-2023 16:11-0400 Body temperature 97.8 [degF] DO Jennifer Girvin Work Phone: [facility] 03-29-2023 16:11-0400 Diastolic blood pressure 79 mm[Hg] DO Jennifer Girvin Work Phone: [facility] 03-29-2023 16:11-0400 Heart rate 104 /min DO Jennifer Girvin Work Phone: [facility] 03-29-2023 16:11-0400 Respiratory rate 16 /min DO Jennifer Girvin Work Phone: [facility] 03-29-2023 16:11-0400 SaO2% (BldA) [Mass fraction] 98 % DO Jennifer Girivelisse Work Phone: [facility] 03-29-2023 16:11-0400 Systolic blood pressure 123 mm[Hg] DO Jennifer Girivelisse Work Phone: [facility] 03-29-2023 06:35-0400 Body height 165.1 cm DO Jennifer Girivelisse Work Phone: [facility] 03-29-2023 06:35-0400 Body weight 87.5 kg DO Jennifer Girivelisse Work Phone: [facility] 03-29-2023 05:41-0400 Diastolic blood pressure 85 mm[Hg] DO Jennifer Girivelisse Work Phone: [facility] 03-29-2023 05:41-0400 Heart rate 110 /min DO Jennifer Girvin Work Phone: [facility] 03-29-2023 05:41-0400 Respiratory rate 18 /min DO Jennifer Girvin Work Phone: [facility] 03-29-2023 05:41-0400 SaO2% (BldA) [Mass fraction] 100 % DO Jennifer Girivelisse Work Phone: [facility] 03-29-2023 05:41-0400 Systolic blood pressure 160 mm[Hg] DO Jennifer Girivelisse Work Phone: [facility] 03-29-2023 01:39-0400 Body height 165.1 cm DO Jennifer Girivelisse Work Phone: [facility] 03-29-2023 01:39-0400 Body temperature 97.2 [degF] DO Jennifer Girivelisse Work Phone: [facility] 03-29-2023 01:39-0400 Body weight 87 kg DO Jennifer Girivelisse Work Phone: [facility] 02-06-2023 04:00-0400 Diastolic blood pressure 74 mm[Hg] DO Jennifer Duran Work Phone: [facility] 02-06-2023 04:00-0400 Heart rate 79 /min DO Jennifer Duran Work Phone: [facility] 02-06-2023 04:00-0400 Respiratory rate 15 /min DO Jennifer Duran Work Phone: [facility] 02-06-2023 04:00-0400 SaO2% (BldA) [Mass fraction] 99 % DO Jennifer Duran Work Phone: [facility] 02-06-2023 04:00-0400 Systolic blood pressure 119 mm[Hg] DO Jennifer Girivelisse Work Phone: [facility] 02-05-2023 23:41-0400 Body height 165.1 cm DO Jennifer Girivelisse Work Phone: [facility] 02-05-2023 23:41-0400 Body temperature 98 [degF] DO Jennifer Girivelisse Work Phone: [facility] 02-05-2023 23:41-0400 Body weight 81.64 kg DO Jennifer Girivelisse Work Phone: [facility] 01-12-2023 14:40-0400 Body height 165.1 cm Jennifer Duran Other [employer] Other 01-12-2023 14:40-0400 Body mass index (BMI) [Ratio] 33.44 kg/m2 Jennifer Duran Other [employer] Other 01-12-2023 14:40-0400 Body temperature 99.5 [degF] Jennifer Duran Other [employer] Other 01-12-2023 14:40-0400 Body weight 91.17 kg Jennifer Duran Other [employer] Other 01-12-2023 14:40-0400 Diastolic blood pressure 78 mm[Hg] Jennifer Duran Other [employer] Other 01-12-2023 14:40-0400 Respiratory rate 18 /min Jennifer Enochivelisse Other [employer] Other 01-12-2023 14:40-0400 SaO2% (BldA) [Mass fraction] 97 % Jennifer Enochivelisse Other [employer] Other 01-12-2023 14:40-0400 Systolic blood pressure 110 mm[Hg] Jennifer Duran Other [employer] Other 10-11-2022 16:20-0400 Body height 165.1 cm Jennifer Duran Other [employer] Other 07-12-2022 16:20-0500 Body height 165.1 cm Jennifer Duran Other [employer] Other 07-12-2022 16:20-0500 Body mass index (BMI) [Ratio] 31.2 kg/m2 Jennifer Duran Other [employer] Other 07-12-2022 16:20-0500 Body temperature 97.2 [degF] Jennifer Duran Other [employer] Other 07-12-2022 16:20-0500 Body weight 85.05 kg Jennifer Duran Other [employer] Other 07-12-2022 16:20-0500 Diastolic blood pressure 74 mm[Hg] Jennifer Duran Other [employer] Other 07-12-2022 16:20-0500 Respiratory rate 18 /min Jennifer Duran Other [employer] Other 07-12-2022 16:20-0500 SaO2% (BldA) [Mass fraction] 99 % Jennifer Duran Other [employer] Other 07-12-2022 16:20-0500 Systolic blood pressure 106 mm[Hg] Jennifer Duran Other [employer] Other 04-28-2022 04:00-0500 Diastolic blood pressure 70 mm[Hg] DO Jennifer Kendallivelisse Work Phone: [facility] 04-28-2022 04:00-0500 Heart rate 81 /min DO Jennifer Wilber Work Phone: [facility] 04-28-2022 04:00-0500 SaO2% (BldA) [Mass fraction] 96 % DO Jennifer Duran Work Phone: [facility] 04-28-2022 04:00-0500 Systolic blood pressure 110 mm[Hg] DO Jennifer Kendallivelisse Work Phone: [facility] 04-28-2022 03:56-0500 Body height 165.1 cm DO Jennifer Duran Work Phone: [facility] 04-28-2022 03:56-0500 Body weight 80 kg DO Jennifer Duran Work Phone: [facility] 04-28-2022 03:56-0500 Respiratory rate 18 /min DO Jennifer Duran Work Phone: [facility] 04-28-2022 00:13-0500 Body temperature 97.2 [degF] DO Jennifer Duran Work Phone: [facility] 04-12-2022 15:40-0400 Body height 165.1 cm Jennifer Enochivelisse Other [employer] [facility] [employer] Other 04-12-2022 15:40-0400 Body mass index (BMI) [Ratio] 30.37 kg/m2 Jennifer Duran Other [employer] Other 04-12-2022 15:40-0400 Body temperature 98.8 [degF] Jennifer Duran Other [employer] Other 04-12-2022 15:40-0400 Body weight 82.78 kg Jennifer Kendallivelisse Other [employer] Other 04-12-2022 15:40-0400 Diastolic blood pressure 76 mm[Hg] Jennifer Duran Other [employer] Other 04-12-2022 15:40-0400 Respiratory rate 18 /min Jennifer Enochivelisse Other [employer] Other 04-12-2022 15:40-0400 SaO2% (BldA) [Mass fraction] 98 % Jennifer Duran Other [employer] Other 04-12-2022 15:40-0400 Systolic blood pressure 110 mm[Hg] Jennifer Duran Other [employer] Other 04-09-2022 13:32-0400 Body temperature 97.59 [degF] [employer] Work Phone: [facility] 04-09-2022 13:32-0400 Diastolic blood pressure 64 mm[Hg] [employer] Work Phone: [facility] 04-09-2022 13:32-0400 Heart rate 114 /min Chair Patria Work Phone: [facility] 04-09-2022 13:32-0400 Respiratory rate 18 /min Chair Patria Work Phone: [facility] 04-09-2022 13:32-0400 SaO2% (BldA) [Mass fraction] 97 % [employer] Work Phone: [facility] 04-09-2022 13:32-0400 Systolic blood pressure 116 mm[Hg] [employer] Work Phone: [facility] 03-26-2022 13:54-0400 Body temperature 97.9 [degF] Chair Patria Work Phone: [facility] 03-26-2022 13:54-0400 Diastolic blood pressure 75 mm[Hg] [employer] Work Phone: [facility] 03-26-2022 13:54-0400 Heart rate 82 /min Chair Patria Work Phone: [facility] 03-26-2022 13:54-0400 Respiratory rate 18 /min Chair Patria Work Phone: [facility] 03-26-2022 13:54-0400 SaO2% (BldA) [Mass fraction] 100 % Chair Patria Work Phone: [facility] 03-26-2022 13:54-0400 Systolic blood pressure 106 mm[Hg] [employer] Work Phone: [facility] 03-10-2022 13:54-0400 Body height 165.1 cm Gil Ni APRN.CNP Work Phone: [facility] 03-10-2022 13:54-0400 Body temperature 97.9 [degF] Gil Ni APRN.[employer] SUPERVIS[employer] Work Phone: [facility] 03-10-2022 13:54-0400 Body weight 83.37 kg Gil Ni APRN.[employer] SUPERVISOR Work Phone: [facility] 03-10-2022 13:54-0400 Diastolic blood pressure 75 mm[Hg] Gil Ni APRN.[employer] SUPERVISOR Work Phone: [facility] 03-10-2022 13:54-0400 Heart rate 95 /min Gil Ni APRN.[employer] SUPERVISOR Work Phone: [facility] 03-10-2022 13:54-0400 Respiratory rate 16 /min Gil Ni APRN.[employer] SUPERVISOR Work Phone: [facility] 03-10-2022 13:54-0400 SaO2% (BldA) [Mass fraction] 100 % Gil Ni APRN.[employer] SUPERVISOR Work Phone: [facility] 03-10-2022 13:54-0400 Systolic blood pressure 130 mm[Hg] Gil Ni APRN.[employer] SUPERVISOR Work Phone: [facility] 12-04-2021 12:49-0400 Blood Pressure Location Yamilka Modabound [facility] 12-04-2021 12:49-0400 Body temperature 98.42 [degF] Yamilka Orzech [facility] 12-04-2021 12:49-0400 Diastolic blood pressure 82 mm[Hg] Yamilka Orzech [facility] 12-04-2021 12:49-0400 Heart rate 110 /min Yamilka Orzech [facility] 12-04-2021 12:49-0400 SaO2% (BldA) [Mass fraction] 99 % Yamilka ZachIdentityForgeomer [facility] 12-04-2021 12:49-0400 Systolic blood pressure 126 mm[Hg] [facility] Health[facility]Forgeomer [facility] 10-16-2021 09:10-0400 Body height 165.1 cm Jennifer Duran Other [facility] [employer] Other 09-14-2021 19:31-0400 Diastolic blood pressure 82 mm[Hg] DO Jennifer Duran Work Phone: [facility] 09-14-2021 19:31-0400 Heart rate 87 /min DO Jennifer Duran Work Phone: [facility] 09-14-2021 19:31-0400 Respiratory rate 18 /min DO Jennifer Duran Work Phone: [facility] 09-14-2021 19:31-0400 SaO2% (BldA) [Mass fraction] 99 % DO Jennifer Duran Work Phone: [facility] 09-14-2021 19:31-0400 Systolic blood pressure 126 mm[Hg] DO Jennifer Duran Work Phone: [facility] 09-14-2021 14:45-0400 Body height 165.1 cm DO Jennifer Duran Work Phone: [facility] 09-14-2021 14:45-0400 Body mass index (BMI) [Ratio] 30.7 kg/m2 DO Jennifer Duran Work Phone: [facility] 09-14-2021 14:45-0400 Body temperature 98 [degF] DO Jennifer Duran Work Phone: [facility] 09-14-2021 14:45-0400 Body weight 83.91 kg DO Jennifer Duran Work Phone: [facility] 04-21-2021 16:20-0500 Body height 165.1 cm Jennifer Duran Other [employer] Other 04-21-2021 16:20-0500 Body mass index (BMI) [Ratio] 32.28 kg/m2 Jennifer Enochivelisse Other [employer] Other 04-21-2021 16:20-0500 Body temperature 98.3 [degF] Jennifer Enochivelisse Other [employer] Other 04-21-2021 16:20-0500 Body weight 88 kg Jennifer Duran Other [employer] Other 04-21-2021 16:20-0500 Diastolic blood pressure 82 mm[Hg] Jennifer Enochivelisse Other [employer] Other 04-21-2021 16:20-0500 SaO2% (BldA) [Mass fraction] 98 % Jennifer Enochivelisse Other [employer] Other 04-21-2021 16:20-0500 Systolic blood pressure 124 mm[Hg] Jennifer Duran Other [employer] Other Encounters Encounter Date Encounter Type Care Provider Facility Start: 09-06-2023 End: 09-06-2023 Emergency department patient visit DESTINI [facility] Start: 07-31-2023 End: 07-31-2023 Emergency department patient visit Jignesh Dumont Facility:[facility] Start: 07-31-2023 End: 07-31-2023 Emergency department patient visit Jignesh Dumont [facility] Start: 07-28-2023 End: 07-28-2023 ambulatory PHYSICIAN NO [facility] Work Phone: Start: 07-28-2023 End: 07-28-2023 Patient encounter procedure PHYSICIAN NO [facility] Work Phone: Start: 07-19-2023 End: 07-19-2023 ambulatory Jennifer Duran Other [employer] Other Start: 07-19-2023 Telephone encounter Jennifer Duran [facility] Start: 06-22-2023 End: 06-23-2023 Emergency department patient visit EVGENY SEN MD Facility:[facility] Start: 06-07-2023 End: 06-07-2023 ambulatory Jennifer Duran Other [employer] Other Start: 06-07-2023 Telephone encounter Jennifer Duran [facility] Start: 05-30-2023 End: 05-30-2023 Emergency department [facility] Start: 05-17-2023 End: 05-18-2023 Emergency department patient visit Ritesh Heath Facility:[facility] Start: 05-16-2023 End: 05-16-2023 ambulatory Jennifer Duran Other [employer] Other Start: 05-16-2023 Telephone encounter Jennifer Duran [facility] Start: 04-30-2023 End: 04-30-2023 Emergency department patient visit Elier Jackson Facility:[facility] Start: 04-30-2023 End: 04-30-2023 Emergency department patient visit DO Jennifer Duran Work Phone: [facility] Work Phone: Start: 04-24-2023 End: 04-24-2023 Emergency department patient visit Jignesh Dumont Facility:[facility] Start: 04-24-2023 End: 04-24-2023 Emergency department patient visit Jignesh Dumont [facility] Start: 04-18-2023 End: 04-18-2023 ambulatory Jennifer Duran Other [employer] Other Start: 04-18-2023 Telephone encounter Jennifer Duran [facility] Start: 04-11-2023 End: 04-11-2023 ambulatory Jennifer Duran Other [employer] Other Start: 04-11-2023 Telephone encounter Jennifer Kendallivelisse [facility] Start: 04-04-2023 End: 04-04-2023 ambulatory Jennifer Duran Other [employer] Other Start: 04-04-2023 Telephone encounter Jennifer Enochivelisse [facility] [place] Start: 04-02-2023 End: 04-03-2023 Emergency department patient visit Jennifer Duran Facility:[facility] Start: 04-02-2023 End: 04-03-2023 Emergency department patient visit DO Jennifer Duran Work Phone: [facility] Work Phone: Start: 04-01-2023 End: 04-01-2023 ambulatory Jennifer Duran Other [employer] Other Start: 04-01-2023 Telephone encounter Jennifer Wilber [facility] [place] Start: 03-29-2023 Telephone encounter Jennifer Duran [facility] Start: 03-29-2023 End: 03-29-2023 ambulatory Kiko Saenz [facility] [employer] Other Start: 03-29-2023 End: 03-29-2023 Evaluation and management of inpatient DO Jennifer Duran Work Phone: [facility] Work Phone: Start: 03-29-2023 End: 03-29-2023 observation encounter DO Jennifer Duran Work Phone: [facility] Work Phone: Start: 03-13-2023 End: 03-13-2023 ambulatory Jennifer Duran Facility:[facility] Start: 03-13-2023 End: 03-13-2023 ambulatory DO Jennifer Duran Work Phone: [facility] Work Phone: Start: 03-13-2023 End: 03-13-2023 Patient encounter procedure DO Jennifer Duran Work Phone: [facility] Start: 03-02-2023 End: 03-02-2023 ambulatory Jennifer Duran Other [employer] Other Start: 03-02-2023 Telephone encounter Jennifer Duran [facility] Start: 02-06-2023 End: 02-06-2023 Emergency department patient visit Jennifer Kendallivelisse Facility:[facility] Start: 02-05-2023 End: 02-06-2023 Emergency department patient visit DO Jennifer Duran Work Phone: [facility] Work Phone: Start: 01-12-2023 End: 01-12-2023 ambulatory Jennifer Kendallivelisse Other [employer] Other Start: 01-12-2023 Office outpatient visit 15 minutes Jennifer Duran [facility] Start: 12-09-2022 End: 12-09-2022 ambulatory Jennifer Duran Other [employer] Other Start: 12-09-2022 Telephone encounter Jennifer Duran [facility] [place] Start: 10-11-2022 End: 10-11-2022 ambulatory Jennifer Duran Other [employer] Other Start: 10-11-2022 Telephone encounter Jennifer Duran [facility] Start: 09-22-2022 End: 09-22-2022 ambulatory Jennifer Duran Other [employer] Other Start: 09-22-2022 Telephone encounter Jennifer Duran [facility] Start: 07-28-2022 End: 07-28-2022 ambulatory BELKIS SANDOVAL Facility:[facility] Start: 07-12-2022 End: 07-12-2022 ambulatory Jennifer Duran Other [employer] Other Start: 07-12-2022 Office outpatient visit 15 minutes Jennifer Duran [facility] Start: 07-12-2022 Telephone encounter Jennifer MOLINA [facility] Start: 06-02-2022 End: 06-02-2022 ambulatory Jennifer Durna Other [employer] Other Start: 06-02-2022 Telephone encounter Jennifer Duran [facility] Start: 05-04-2022 End: 05-04-2022 ambulatory Jennifer Duran Other [employer] Other Start: 05-04-2022 Telephone encounter Jennifer Duran [facility] [place] Start: 04-30-2022 Telephone encounter Gil arechiga APRN.[employer] SUPERVISOR Work Phone: Hematology/Oncology Comment on above: Lab Orders Start: 04-28-2022 Evaluation and management of inpatient DO Jennifer Duran Work Phone: [facility] Start: 04-28-2022 observation encounter DO Jennifer Duran Work Phone: [facility] Work Phone: Start: 04-12-2022 End: 04-12-2022 ambulatory Jennifer Duran Other [employer] Other Start: 04-12-2022 Office outpatient visit 15 minutes Jennifer Duran [facility] Start: 04-12-2022 Telephone encounter Jennifer Duran [facility] Start: 04-09-2022 End: 04-10-2022 ambulatory Stephenie Suh 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 Comment on above: Art Therapy Iron deficiency anem ia due to chronic blood loss (Primary Dx); Malabsorption of iron; Cyst of left ovary Start: 03-26-2022 End: 03-27-2022 ambulatory GIL NI Facility:[facility] Start: 03-26-2022 End: 03-26-2022 ambulatory Chair Walton Patria Work Phone: Hematology/Oncology Comment on above: Iron deficiency anem ia due to chronic blood loss (Primary Dx); Malabsorption of iron; Cyst of left ovary Start: 03-15-2022 Telephone encounter Sharon Saavedra CHILD ADVOCATE H ematology/Oncology Comment on above: Social Work Services Start: 03-10-2022 End: 03-11-2022 ambulatory Gil Ni POST EXCHANGE MANAGER.[employer] SUPERVISOR Work Phone: Hematology/Oncology Comment on above: Iron deficiency anem ia due to chronic blood loss (Primary Dx); Malabsorption of iron Start: 03-10-2022 End: 03-10-2022 Patient encounter procedure Gil Ni POST EXCHANGE MANAGER.[employer]ER [employer] SUPERVISOR Work Phone: [facility] Start: 02-18-2022 Telephone encounter Gil arechiga POST EXCHANGE MANAGER.[employer]ER GOODS SUPERVISOR Work Phone: Hematology/Oncology Comment on above: Lab Orders Start: 02-16-2022 End: 02-16-2022 ambulatory Jennifer Duran Other [employer] Other Start: 02-16-2022 Telephone encounter Jennifer Duran [facility] Start: 02-12-2022 End: 02-12-2022 Patient encounter procedure DO Jennifer Duran Work Phone: [facility] [place] Start: 01-07-2022 End: 01-07-2022 ambulatory Jennifer Duran Other [employer] Other Start: 01-07-2022 Telephone encounter Jennifer Duran [facility] Start: 12-04-2021 End: 12-04-2021 Patient encounter procedure Yamilka Lorenzo [facility] Start: 10-29-2021 End: 10-29-2021 ambulatory Jennifer Duran Other [employer] Other Start: 10-29-2021 Telephone encounter Jennifer Duran [facility] Start: 10-16-2021 End: 10-16-2021 ambulatory Jennifer Duran Other [employer] Other Start: 10-16-2021 Office outpatient visit 15 minutes Jennifer Duran [facility] [place] Start: 09-21-2021 End: 09-21-2021 ambulatory Jennifer Duran Other [employer] Other Start: 09-21-2021 Telephone encounter Jennifer Duran [facility] [place] Start: 09-14-2021 End: 09-14-2021 Emergency department patient visit DO Jennifer Duran Work Phone: [facility] Start: 08-18-2021 End: 08-18-2021 ambulatory Jennifer Duran Other [employer] Other Start: 08-18-2021 Telephone encounter Jennifer Duran [facility] Start: 08-11-2021 End: 08-11-2021 ambulatory Jennifer Duran Other [employer] Other Start: 08-11-2021 Telephone encounter Jennifer Duran [facility] [place] Start: 08-03-2021 End: 08-03-2021 ambulatory Jennifer Duran Other [employer] Other Start: 08-03-2021 Telephone encounter Jennifer Duran [facility] Start: 07-04-2021 End: 07-04-2021 Patient encounter procedure DO Jennifer Duran Work Phone: [facility] [place] Start: 06-04-2021 End: 06-04-2021 ambulatory Jennifer Duran Other [employer] Other Start: 06-04-2021 Telephone encounter Jennifer Duran [facility] Start: 05-18-2021 End: 05-18-2021 ambulatory Jennifer Duran Other [employer] Other Start: 05-18-2021 Telephone encounter Jennifer Duran [facility] Start: 04-21-2021 End: 04-21-2021 ambulatory Jennifer Duran Other [employer] Other Start: 04-21-2021 Encounter for genera l adult medical examination without abnormal findings Jennifer Duran [facility] Start: 04-21-2021 Periodic preventive med est patient 18-39 yrs Jennifer Duran [facility] Procedures Date Procedure Procedure Detail Performing [...] lic 2000 panel - Serum or Plasma [facility] Start: 03-30-2023 [facility] Start: 03-29-2023 [facility] Start: 03-29-2023 Referral to advertisement compositor [facility] Start: 03-29-2023 Hospital admission [facility] Start: 03-29-2023 [facility] Start: 03-29-2023 Computed tomography of abdomen and pelvis with contrast CT abdomen pelvis w con [facility] Start: 03-29-2023 CT Abdomen and Pelvi s W contrast IV [facility] Start: 03-29-2023 [facility] Start[facility] 03-29-2023 US Pelvis transvaginal [facility] Start: 03-29-2023 Pelvic echography US pelvic complete [facility] Start: 03-29-2023 US Pelvis [facility] Start: 02-06-2023 Pelvic echography US pelvic complete [facility] Start: 02-06-2023 US Pelvis [facility] Start: 02-06-2023 [facility] Start: 02-06-2023 US Pelvis transvaginal [facility] Start: 02-05-2023 Computed tomography of abdomen and pelvis with contrast CT abdomen pelvis w con [facility] Start: 02-05-2023 CT Abdomen and Pelvi s W contrast IV [facility] Start: 05-05-2022 End: 07-05-2022 CBC W Auto Differential panel - Blood CBC + DIFF Lab Routine Iron deficiency anemia due to chronic blood loss Malabsorption of iron Expected: 05/05/2022, Expires: 07/05/2022 [facility] Work Phone: Comment on above: Expected: 05/05/2022 , Expires: 07/05/2022 Start: 05-03-2022 End: 07-03-2022 Comprehensive metabolic 2000 panel - Serum or Plasma COMP METABOLIC PANEL Lab Routine Iron deficiency anemia due to chronic blood loss Expected: 05/03/2022, Expires: 07/03/2022 [facility] Work Phone: Comment on above: Expected: 05/03/2022 , Expires: 07/03/2022 Start: 04-28-2022 Pelvic echography US pelvic complete [facility] Start: 04-28-2022 US Pelvis [facility] Start: 04-28-2022 CT Abdomen and Pelvi s WO contrast [facility] Start: 04-28-2022 CT of abdomen and pe lvis without contrast CT abdomen pelvis wo con [facility] Start: 04-28-2022 Transvaginal echography US transvagi nal [facility] Start: 04-28-2022 US Pelvis transvaginal [facility] Start: 02-23-2022 End: 02-20-2023 CBC W Auto Differential panel - Blood CBC + DIFF Lab Routine Iron deficiency anemia due to chronic blood loss Expected: 02/23/2022 (Approximate), Expires: 02/20/2023 [facility] Work Phone: Comment on above: Expected: 02/23/2022 (Approximate), Expires: 02/20/2023 Start: 02-23-2022 End: 02-20-2023 Cobalamin (Vitamin B12) [Mass/volume] in Serum or Plasma VITAMIN B12 BLOOD Lab Routine Iron deficiency anemia due to chronic blood loss Expected: 02/23/2022 (Approximate), Expires: 02/20/2023 [facility] Work Phone: Comment on above: Expected: 02/23/2022 (Approximate), Expires: 02/20/2023 Start: 02-23-2022 End: 02-20-2023 Comprehensive metabolic 2000 panel - Serum or Plasma COMP METABOLIC PANEL Lab Routine Iron deficiency anemia due to chronic blood loss Expected: 02/23/2022 (Approximate), Expires: 02/20/2023 [facility] Work Phone: Comment on above: Expected: 02/23/2022 (Approximate), Expires: 02/20/2023 Start: 02-23-2022 End: 02-20-2023 Ferritin [Mass/volume] in Serum or Plasma FERRITIN BLD Lab Routine Iron deficiency anemia due to chronic blood loss Expected: 02/23/2022 (Approximate), Expires: 02/20/2023 [facility] Work Phone: Comment on above: Expected: 02/23/2022 (Approximate), Expires: 02/20/2023 Start: 02-23-2022 End: 02-20-2023 Folate [Mass/volume] in Serum or Plasma FOLATE SERUM Lab Routine Iron deficiency anemia due to chronic blood loss Expected: 02/23/2022 (Approximate), Expires: 02/20/2023 [facility] Work Phone: Comment on above: Expected: 02/23/2022 (Approximate), Expires: 02/20/2023 Start: 02-23-2022 End: 02-20-2023 Iron and Iron binding capacity panel - Serum or Plasma IRON + TIBC Lab Routine Iron deficiency anemia due to chronic blood loss Expected: 02/23/2022 (Approximate), Expires: 02/20/2023 [facility] Work Phone: Comment on above: Expected: 02/23/2022 (Approximate), Expires: 02/20/2023 Start: 02-11-2022 Influenza vaccination INFLUENZA (#1) [facility] Start: 06-13-2021 DEPRESSION ASSESSMENT DEPRESSION ASS ESSMENT [facility] Start: 11-30-2020 COVID-19 VACCINE (3 - Booster for Moderna series) COVID-19 VACCINE (3 - Booster for Moderna series) [facility] Start: 08-27-2020 COVID-19 VACCINE (3 - Booster for Moderna series) COVID-19 VACCINE (3 - Booster for Moderna series) [facility] Start: 2017 HPV TESTING HPV TESTING [facility] Start: 01-11-2008 PAP TESTING PAP TESTING [facility] Start: 2006 Urine microalbumin profile DTAP,TDAP,TD (1 - Tdap) [facility] Start: 2005 HEPATITIS C SCREENING HEPATITIS C SC REENING [facility] Start: 2005 HIV SCREENING HIV SCREENING [facility] Start: 1999 Adult depression screening assessment DEPRESSION SCREENING [facility] Start: 1987 HEPATITIS B (1 of 3 - 3-dose series) HEPATITIS B (1 of 3 - 3-dose series) [facility] Patient Education [facility] Work Phone: Patient referral [facility] Work Phone: [facility] Immunizations Immunization Date Immunization Notes Care Provider Fa cility 03-13-2023 influenza, injectable, quadrivalent, preservative free Jennifer Duran Other [facility] 03-31-2021 influenza, seasonal, injectable Jennifer Duran Other [facility] 07-02-2020 COVID-19 Vaccine Moderna - Documentation Purposes Only Jennifer Duran Other [facility] 06-04-2020 COVID-19 Vaccine Moderna - Documentation Purposes Only Jennifer Duran Other [facility] 12-10-2008 measles, mumps and rubella virus vaccine [facility] NEGATED: Highlighted row has not occurred!03-23-2019 influenza, seasonal, injectable Patient Objection Jennifer Duran Other [employer] Other Payers Date Payer Category Payer Self-pay [id number] 2018 Unknown [id number] 1987 Unknown [id number] 2.16.84 [id number] 1987 Unknown [id number] 2.16.8 [id number] 1987 Unknown [id number] 2.16.8 [id number] 1987 Unknown [id number] 2.16.8 [id number] 1987 Unknown [id number] 2.16.8 [id number] 1987 Unknown [id number] 2.16.8 [id number] 1959 Unknown [id number] Unknown [id number] Unknown [id number] Unknown [id number] 2.16.8 [id number] Unknown [id number] 2.16.8 [id number] Unknown [id number] 2.16.8 [id number] Unknown [id number] 2.16.8 [id number] Unknown [id number] 2.16.8 [id number] Social History Date Type Detail Facility Start: 09-14-2021 End: 12-04-2021 Tobacco smoking status NHIS Never smoked tobacco (finding) [facility] Start: 1985 Sex Assigned At Female F [facility] Tobacco smoking status Never [facility] Sex Assigned At Female 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 [employer] Other Start: 04-05-2018 End: 03-10-2022 Tobacco use and exposure Smokeless tobacco non-user [facility] Start: 10-27-2020 End: 03-10-2022 Alcohol intake Current drinker of alcohol (finding) [facility] Start: 04-05-2018 History SDOH Alcohol Comment socially [facility] Start: 1985 Sex Assigned At Not on file C [facility] Start: 02-06-2022 End: 04-09-2022 Exposure to SARS-CoV-2 (event) Not sure [facility] History of tobacco use Passive smoker [facility] Goals Date Patient Goal Desired Activity /State Functional Status Date Assessment Result Facility 07-31-2023 Functional Status N/A [facility] 04-24-2023 Functional Status N/A [facility] 03-29-2023 Functional status Patient at [facility] Work Phone: 12-04-2021 Functional Status N/A [facility] Mental Status Date Assessment Result Facility 03-29-2023 Cognitive function Cognitive Sta tus Patient at [facility] Work Phone: Clinical Notes 03-19-2019 to [...] Follow these instructions at home: Medicines Take zihf-rwn-amgkjxj and prescription medicines only as told by [...] Watch your condition for any changes. Take ekit-esa-fpidiwx and prescription medicines only as told by [...] provider. Document Revised: 07/18/2020 Document Reviewed: 10/08/2019 [employer] Patient Education 2022 ixigo. Follow Up Care 07/31/2023 15:34:13 With:Follow-up with your TEAM LEADER SURGERY at [facility] Address:Unknown When:08/03/2023 17:52:19 Comments:Call the [...] weakness, or any new or worsening symptoms. [facility] 07-19-2023 Evaluation note Encounter Date Diagnosis Assessment Notes Jul, Anxiety (ICD-10 - F41.9) [employer] Other 02-06-2024 Evaluation note* Encounter Date Diagnosis [...] an appointment with her specialist through the [facility] and is scheduled at the end of this month (July) and is hoping to have a total hysterectomy. [employer] Other 12-26-2023 Evaluation note* Encounter Date Diagnosis Assessment Notes Treatment Notes Treatment Clinical Notes May, Cough (ICD-10 - R05.9) [facility] Other 12-04-2023 Evaluation note* Encounter Date Diagnosis Assessment Notes Treatment Notes Treatment Clinical Notes May, Anxiety (ICD-10 - F41.9) [facility] Other 11-12-2023 Hospital Discharge instructions Patient Education [...] Follow these instructions at home: Medicines Take pwtm-piw-erxdvjq and prescription medicines only as told by [...] Watch your condition for any changes. Take mpwt-eqi-kfnuszi and prescription medicines only as told by [...] provider. Document Revised: 07/18/2020 Document Reviewed: 10/08/2019 [employer] Patient Education 2022 ixigo. Follow Up Care 04/24/2023 13:13:55 With:YOUR OBGYN at [facility] Address:Unknown When:04/27/2023 15:50:22 Comments:Seek immediate medical [...] develop any new or worsening symptoms. 3. [facility]11-12-2023 Evaluation + Plan noteExtracted from: Title:ED Note Author:Jignesh Dumont DO Date:06/24/22 Abdominal pain, acute, left lower quadrant (R10.32: Left lower quadrant pain) Ordered: oxycodone, 5 mg = 1 cap(s), Oral, q6hr, PRN Pain 8-10, X 3 day(s), # 12 cap(s), Refills(s) 0, Pharmacy: [facility]pharm[id number], 165.1, cm, 04/24/23 13:32:00 EST, Height/Length [...] Saline Lock Insert UA With Cult Reflex [facility]11-06-2023 Evaluation note* Encounter Date Diagnosis Assessment Notes [...] an appointment with her specialist at the [facility] in June (2023) which was the soonest they could get her in. She is hoping that they will at least remove the ovary but she is willing to have a total hysterectomy if they will do it. 1:13 PM - 1:20 PM [employer] Other 10-20-2023 Evaluation note* Encounter Date Diagnosis Assessment Notes Treatment Notes Treatment Clinical Notes Mar, Anxiety (ICD-10 - F41.9) [employer] Other 10-17-2023 Progress note Author Christi Aquino [facility] March 29, 2023 4:11pm Note Date/Time March 29, 2023 1 1:35am [facility] [address] [place] [id number] Progress Note Signed with Lester Patient: Livia Noyola MR#: [id number] : 1985 Acct:[id number] Age/Sex: 38 / F Adm Date: 3 Loc: 3T Room: [address] [place] [address] Type: ADM IN Attending Dr: Christi Aquino MD Copies to: ~ ADDENDUM1 Upon re-evaluation in the afternoon, patient feels better and would like to go home. Prescribed pain medications as needed as directed. Advised to continue to follow up with [facility] staff senior contract specialist. 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 senior contract specialist eval requested for further evaluation. Patient has complex senior contract specialist hx and been followed at [facility]. Afebrile here, no leukocytosis or obvious evidence of infectious process. Placed on Pain meds regimen IV and PO. Ongoing monitoringfor now. Documented By: Christi Aquino MD 03/29/23 11 32 Signed By: <Electronically signed by Christi Aquino MD> 03/29/23 9342 [facility] Work Phone: 1(374) 376-811610-17-2023 History and physical note Author Megan Muniz [facility] March 29, 2023 7:29am Note Date/Time March 29, 2023 7 :29am [facility] [address] [place] [address] Hospitalist H&P Signed Patient: Livia Noyola MR#: [id number] : 1985 Acct:[id number] Age/Sex: 38 / F Adm Date: 3 Loc: 3T Room: 7X2401-6 Type: ADM IN Attending Dr: Christi Aquino [...] findings. The patient case was discussed with TEAM LEADER SURGERY, who was not convinced that left ovarian [...] Previous records in the computer system reviewed [facility] Medical History Anemia Endometriosis Surgical History History [...] % (Auto) 42.8 % (.) 03/29/23 01:40 Doddridge % (Auto) 7.3 % (.) 03/29/23 01:40 Eos % (Auto) 1.8 % (.) 03/29/23 01:40 Baso % (Auto) 1.3 % (.) 03/29/23 01:40 Nucleat RBC Rel Count 0.1 /100 WBC (0-0.5) 03/29/23 01:40 Neut # (Auto) 3.5 x10E3/uL (1.8-7.7) 03/29/23 01:40 Lymph # (Auto) 3.2 x10E3/uL (1.00-4.8) 03/29/23 01:40 Doddridge # (Auto) 0.6 x10E3/uL (0.0-0.8) 03/29/23 01:40 [...] pH 7.5 (5.0-9.0) 03/29/23 02:53 Ur Specific Loda 1.003 (1.001-1.030) 03/29/23 02:53 Urine Protein Negative [...] she does have tachycardia We will consult TEAM LEADER SURGERY Check lactic acid 2. Microcytic iron deficiency [...] <Electronically signed by Megan Muniz MD> 03/29/23728 [facility] Work Phone: 1(185) 236-189508-02-2023 Evaluation note* Encounter Date Diagnosis Assessment Notes [...] relief. She would need to see an learning support specialist for this. She is agreeable to [...] an appointment to see Dr. Castillo again. [employer] Other 06-29-2023 Evaluation note* Encounter Date Diagnosis Assessment Notes Treatment Notes Treatment Clinical Notes Nov, Acute sinusitis (ICD-10 - J01.90) Nov, Cough (ICD-10 - R05.9) [employer] [facility] Other 05-01-2023 Evaluation note* Encounter Date Diagnosis [...] no discrepancies noted. Rx was called into [facility], spoke with Chad TOWNSEND, the Xanax 0.25 MG tablets are out of stock currently so her dose was increased to 0.5 MG and she was instructed to take 1/2 tablet q8-12 hours as needed. Only 12 tablets were called in. Pt voiced understanding when notified of this change. October, Other 3:17 PM - 3:23 PM [employer] [facility] Other 04-12-2023 Evaluation note* Encounter Date Diagnosis [...] Sep, Other 12:46 PM - 12:51 PM [employer] [facility] Other 01-30-2023 Evaluation note* Encounter Date Diagnosis Assessment Notes Treatment Notes Treatment Clinical Notes Jun, Anxiety (ICD-10 - F41.9) [employer] [facility] Other 01-30-2023 Evaluation note* Encounter Date Diagnosis [...] Side effects/risks/benefi ts of medication were reviewed. [employer] [facility] Other 12-21-2022 Evaluation note* Encounter Date Diagnosis [...] May, Other 3:27 PM - 3:32 PM [facility] Other 11-18-2022 Miscellaneous Notes* Telephone Encounter - Tabby Steele Ma - 04/30/2022 2:25 PM EST CMP if needed. Tabby Steele Ma [facility]* Encounter Date Diagnosis Assessment Notes Treatment Notes Treatment Clinical Notes Mar, Anxiety (ICD-10 - F41.9) [employer] [facility] Other 10-31-2022 Evaluation note* Encounter Date Diagnosis [...] done and then return to see her TEAM LEADER SURGERY at the [facility] because she feel she has another ovarian cyst. [employer] Other 10-28-2022 Miscellaneous Notes* Allied Health - [...] 2:21 PM PAGER/CONTACT #: [facility] Miscellaneous Notes* Telephone Encounter - MARY Narvaez - 03/15/2022 12:04 PM EDT Patient appears on the First Time Treatment List for a non-oncology treatment. No psychosocial assessment is indicated. JANNA Narvaez documented in [facility]09-[facility]-2022 NoteHNO ID: [id number] Author: Gil Ni APRN.PIOTR Service: ? 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 Recent laboratories from [facility] October 04, 2020 show hemoglobin of 11.6 [...] and removal ovarian cyst (more content not included)...[facility]-28-2022 History of Present illness Narrative* Gil Ni APRN.[employer]ER [employer] SUPERVISOR - 03/10/2022 2:00 PM EDT Images from the original note were not included. 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 Recent laboratories from [facility] October 04, 2020 show hemoglobin of11.6 but [...] Hyperlipidemia Father Heart Father bypass surgery, stents, OR Gil Ni APRN.CNP [facility] [place], [place] CC: Dr. Jennifer Duran [address] [place] [id number] I spent a total of 30 minutes on the date of the service which included preparing to see the patient, abcb-ku-duxj patient care, completing clinical documentation, obtaining and/or reviewing separately obtained history, performing a medically appropriate examination, counseling and educating the pat ient/family/caregiver, ordering medications, tests, or procedures, independently interpreting results (not separately reported), and communicating results to the patient/family/caregiver. documented in [facility]09-[facility]22 Miscellaneous Notes* Telephone Encounter - Meaghan Ordonez - 02/18/2022 3:14 PM EDT Patient has an appt on 02/23. Would you like labs? documented in this encounterP[facility]09-[facility]-2022 Evaluation note* Encounter Date Diagnosis Assessment Notes Treatment Notes Treatment Clinical Notes Feb, Iron deficiency anemia (ICD-10 - D50.9) Feb, Elevated liver enzymes (ICD-10 - R74.8) [employer] Other 07-28-2022 Evaluation note* Encounter Date Diagnosis Assessment Notes Treatment Notes Treatment Clinical Notes Dec, Anxiety (ICD-10 - F41.9) [facility] Other 06-24-2022 Hospital Discharge instructions Patient Education [...] develop this condition: Playing sports that include miyh-it-yafx contact with others. Having a skin condition [...] Follow these instructions at home: Medicines Take bhwl-btb-favgbae and prescription medicines only as told by [...] 06/20/2015 Document Revised: 07/10/2019 Document Reviewed: 06/21/2017 [employer] Patient Education 2020 ixigo. 12/04/2021 13:59:11 Sinusitis, Adult Sinusitis, Adult Sinusitis [...] at home: Medicines Take, use, or apply pwam-vow-vaexgrz and prescription medicines only as told by [...] and water are not available, use hand technical adjuster. Do not smoke. Avoid being around people [...] 05/30/2006 Document Revised: 10/30/2018 Document Reviewed: 10/30/2018 [employer] Patient Education 2020 ixigo. 12/04/2021 13:59:10 BMI for Adults BMI for [...] height. This can be done either in Sammarinese ([place] or metric measurements. Note that charts are available to help you find your BMI quickly and easily without having to do these calculations yourself. To calculate your BMI in Sammarinese [place] measurements, your health care provider will: [...] medical problems. BMI can be measured using Sammarinese measurements or metric measurements. To interpret your [...] 02/08/2005 Document Revised: 05/12/2018 Document Reviewed: 04/12/2018 [employer] Patient Education 2019 ixigo. [facility] 05-06-2022 Evaluation note* Encounter Date [...] October, Other 8:28 AM - 8:35 AM [facility] Other 03-01-2022 Evaluation note* Encounter Date Diagnosis Assessment Notes Treatment Notes Treatment Clinical Notes Aug, Cough (ICD-10 - R05) [employer] [facility] Other 02-21-2022 Evaluation note* Encounter Date Diagnosis [...] Jul, Other 5:43 PM - 5:48 PM [employer] [facility] Other 12-06-2021 Evaluation note* Encounter Date Diagnosis [...] May, Other 4:25 PM - 4:38 PM [employer] [facility] Other 11-09-2021 Evaluation note* Encounter Date Diagnosis [...] R63.5) Her TSH is normal at 1.04. [employer] [facility] Other 10-07-2019 History general Narrative - Reported* Type Description Date Medical History endometriosis 2012 Medical History Echocardiogram [employer] [facility] Normal, ejection fraction 60-65% Medical History MRI Brain 03-21-19 [facility], Normal Medical History anxiety Medical History pneumonia 06/2019 Surgical History Cholecystectomy Surgical History gal bladder removed 2008 Surgical History ablation - endometri osis removed off ovaries Dr Lentz 2012 Surgical History ovarian torsion 2014 Surgical History MRI pelvis 2017 Surgical History ovarian cyst removed 06/2018 Hospitalization History see above [employer] Other Consult note Author Geraldo Hatfield [facility] April 28, 2022 8:22am Note Date/Time April 28, 2022 8:22am [facility] [address] [place] [address] TEAM LEADER SURGERY Consult Note Signed Patient: Livia Noyola MR#: [id number] : 1985 Acct:[id number] Age/Sex: 37 / F Adm Date: 2 Loc: Room: [address] [place] [address] Type: ADM INOo Attending Dr: Kiko Saenz [...] Last Admin: 04/28/22 04:43 Dose: 10 ml [facility]OMENS HEALTH NURSE PRACTITIONER - Exam Physical Exam Vital signs: Temp 97.7 F 04/28/22 04:18 Pulse 95 H 04/28/22 04:18 Resp 16 04/28/22 04:18 BP 136/95 04/28/22 04:18 Pulse Ox 100 04/28/22 04:18 O2 Del Method Room Air 04/28/22 04:18 Constitutional Constitutional: no acute distress Routine Respiratory Exam Respiratory: Absent respiratory distress Routine Abdominal Exam Abdominal: Present soft, normoactive bowel sounds and tenderness; Absent reboundor guarding [facility]OM[employer] HE[employer] NURSE PRACTITIONER - Results Laboratory Results - Last 48 hrs. 04/28/22 02:00: Urine Color Yellow, Urine Appearance Cloudy A, Urine pH 6.5, Ur Specific Loda 1.005, Urine Protein Negative, Urine Glucose (UA) [...] Creatinine Clear 132.36, Sodium 137, Potassium 3.7, Sriluwcl645, Carbon Dioxide 21.1 L, Anion Gap 14.6, [...] % (Auto) 64.6, Lymph % (Auto) 28.9, Doddridge % (Auto) 4.5, Eos % (Auto) 1.0, Baso % (Auto) 1.0, Neut # (Auto) 5.1, Lymph # (Auto) 2.3, Doddridge # (Auto) 0.4, Eos # (Auto) 0.1, Baso # (Auto) 0.1, Nucleated RBC % (auto) 0.0, Platelet Estimate Normal, Plt Morphology Comment Normal, RBC Morphology N/A, Polychromasia Slight, Hypochromasia Slight, Poikilocytosis Moderate, Anisocytosis Marked, Tear Drop Cells Slight, Ovalocytes Moderate WOMENS HEALTH NURSE PRACTITIONER - A/P (1) Intractable abdominal pain: Code(s): [...] And I suggested she follow-up with her advertisement compositor at the [facility]. Code(s): N83.202 - Unspecified ovarian cyst, left side Status: Acute Documented By: GERALDO HATFIELD MD 04/28/22816 Signed By: <Electronically signed by MD GERALDO HATFIELD> 04/28/22821 [facility] Work Phone: Evaluation + Plan note No data available for this section [facility] Evaluation noteNo assessment information available [facility] Work Phone: Evaluation noteNo InformationNort [employer] Other Evaluation note* Diagnosis Iron deficiency anemia due to chronic blood loss- Primary Iron deficiency anemia secondary to blood loss (chronic) [facility] 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 [facility] Diagnosis 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 Cyst of left ovary Other and unspecified ovarian cyst [facility] 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 Cyst of left ovary Other and unspecified ovarian cyst [facility] Diagnosis Iron deficiency anemia due to chronic blood loss- Primary Iron deficiency anemia secondary to blood loss (chronic) [facility] Diagnosis Onset Date Resolution Status Abdominal pain acute Ovarian cyst acute [facility] Work Phone: Evaluation note* Diagnosis Onset Date Resolution Status Abdominal pain acute Endometriosis acute Ovarian cyst acute [facility] Work Phone: Evaluation note* Author Jennifer Duran [facility] Authored July 28, 2023 12:18pm The above note written by __ _Polly Collado____ acting as human recorder, note dictated by _Wilber .I performed the above HPI, ROS, and Examination. I formulated and dictated the treatment plan and was present for entire encounter. Jennifer Duran D.O. [facility] Work Phone: Hospital Discharge instructions Additional Instructions Please arrange a follow-up appointment with your [facility] advertisement compositor.[facility] Work Phone: Hospital Discharge instructions Additional Instructions Take Motrin and Tylenol as needed for mild to moderate pain. Take oxycodone as prescribed for severe pain. Follow-up with Dr. Ness or Dr. Grayson in the office regarding further treatment with a GnRH antagonistUk [facility] Work Phone: Progress note No data available for this section [facility] Summary Purpose Family History No [...] bursitis of right hip (M70.61) Referral Organization [facility] Family Medicin e Ale Referring Provider First Name Jennfier Referring Provider Last Name Wilber Referring Provider Specialty Family Prac kasi Referred Organization [facility] Energy Ortho pedics Referred Provider Chad Luna II Referred Address [address] [facility] [place],[address] Referred Provider Specialty Orthopedic S urgery Referral Priority Routine General Notes Angelita Trevino 01/12/2023 03:51:47 PM > referral sent p2p. pt understands that she will be contacted to schedule this appt. Reason appt consult for e zia and treatment of continued cough since covid infection Diagnosis 1 Cough (R05) Referral Organization [facility] Family Medicin e Ale Referring Provider First [...] section and content) DATE CREATED AUTHOR 08/08/2020 [facility] DATE CREATED AUTHOR AUTHOR'S ORGANIZ ATION 05/03/2022 [facility] DATE CREATED AUTHOR AUTHOR'S ORGANIZ ATION 10/19/2022 [facility] DATE CREATED AUTHOR AUTHOR'S ORGANIZ ATION 05/31/2023 [facility] DATE CREATED AUTHOR AUTHOR'S ORGANIZ ATION 06/23/2023 [facility] DATE CREATED AUTHOR AUTHOR'S ORGANIZ ATION 06/24/2023 [facility] DATE CREATED AUTHOR AUTHOR'S ORGANIZ ATION 09/06/2023 [facility] DATE CREATED AUTHOR AUTHOR'S ORGANIZ ATION 09/14/2023 [facility] Care Teams (unrecognized sec tion and [...] Active Amaury Barlow DO Emergency Provider Active Assignment Officer Relationship Specialty Start Date End Date Jennifer Duran, DO [address] [place] [address] PCP - General 11/27/07 Jennifer Duran, DO [address] [place] [address] Referring Family Practice 04/03/19 Avinash Velásquez MD [address] [place] [address] Referring TEAM LEADER SURGERY 11/30/21 Assignment Officer Relationship Specialty Start Date End Date Jennifer Duran, DO [address] [place] [address] PCP - General 11/27/07 Jennifer Duran, DO [address] [place] [address] Referring Family Medicine 04/03/19 Avinash Velásquez MD [address] [place] [address] Referring TEAM LEADER SURGERY 11/30/21 Assignment Officer Relationship Specialty Start Date End Date Jennifer Duran, DO [address] [place] [address] PCP - General 11/27/07 Jennifer Duran, DO [address] [place] [address] Referring Family Medicine 04/03/19 Avinash Velásquez MD [address] [facility] [address] [place] [address] Referring TEAM LEADER SURGERY 11/30/21 Assignment Officer Relationship Specialty Start Date End Date Jennifer Duran, DO [address] [place] [address] PCP - General 11/27/07 Jennifer Duran, DO [address] [place] [address] Referring Family Medicine 04/03/19 Avinash Velásquez MD [address] [facility] [address] [place] [address] Referring TEAM LEADER SURGERY 11/30/21 Assignment Officer Relationship Specialty Start Date End Date Jennifer Duran, DO [address] [place] [address] PCP - General 11/27/07 Jennifer Duran, DO [address] [place] [address] Referring Family Medicine 04/03/19 Avinash Velásquez MD [address] [place] [phone] Referring TEAM LEADER SURGERY 11/30/21 Assignment Officer Relationship Specialty Start Date End Date Jennifer Duran, DO [address] [place] [address] PCP - General 11/27/07 Jennifer Duran, DO [address] [place] [address] Referring Family Medicine 04/03/19 Avinash Velásquez MD [address] [place] [id number] Referring TEAM LEADER SURGERY 11/30/21 Team Status: Active Member Role Status Dates Jennifer Duran , DO Primary Care Provider Active Yevgeniy Cabrera Jr, MD Emergency Provider Active Kiko Saenz , Admit Provider, Attending Provider Active Assignment Officer Relationship Specialty Start Date End Date Jennifer Duran, DO [address] [place] [id number] [facility] - General 11/27/07 Jennifer Duran, DO [address] [place] [address] Referring Family Medicine 04/03/19 Avinash Velásquez MD [address] [place] [address] Referring TEAM LEADER SURGERY 11/30/21 Team Status: Inactive Member Role Status [...] SUCROSE INJECTION PER 1 MG Gil Ni, CATY[facility] [address] [place] [address] Johny Treat [place] [address] [place] [address] Referral ID Status Reason Start Date Expiration Date V isits Requested Visits Authorized [id number] Authorized 03/10/2022 06/12/2022 99 99 Reason Comments [facility] Comments (unrecognize d section and content) In the event this informatio n is protected by the Federal Confidentiality of Alcohol and Drug Abuse Patient Records regulations: The Federal rules restrict any use of the information to criminally investigate or prosecute any alcohol or drug abuse patient.[facility] the event this information is protected by the Federal Confidentiality of Alcohol and Drug Abuse Patient Records regulations: The Federal rules restrict any use of the information to criminally investigate or prosecute any alcohol or drug abuse patient.[facility] the event this information is protected by the Federal Confidentiality of Alcohol and Drug Abuse Patient Records regulations: The Federal rules restrict any use of the information to criminally investigate or prosecute any alcohol or drug abuse patient.[facility] the event this information is protected by the Federal Confidentiality of Alcohol and Drug Abuse Patient Records regulations: The Federal rules restrict any use of the information to criminally investigate or prosecute any alcohol or drug abuse patient.[facility] the event this information is protected by the Federal Confidentiality of Alcohol and Drug Abuse Patient Records regulations: The Federal rules restrict any use of the information to criminally investigate or prosecute any alcohol or drug abuse patient.[facility] the event this information is protected by the Federal Confidentiality of Alcohol and Drug Abuse Patient Records regulations: The Federal rules restrict any use of the information to criminally investigate or prosecute any alcohol or drug abuse patient.[facility] the event this information is protected by the Federal Confidentiality of Alcohol and Drug Abuse Patient Records regulations: The Federal rules restrict any use of the information to criminally investigate or prosecute any alcohol or drug abuse patient.[facility] FOR RECORDS PERTAINING TO PATIENTS WHO [...] BE BASED ON THE PRIMARY CLINICAL RECORDS. [facility]. provides no warranty or guarantee of the accuracy or completeness of information in this document.
--- NOTE | 2023-09-25 23:19 | XR_ITS ---
The [address] [address] Patient Name: ANTONIA DE LOS SANTOS MRN: [id number] date: 1985 Sex: F Assigned Patient Location: ER Current Patient Location: Accession/Order Number: [id number] Exam Date: 09/25/2023 23:59 Report Date: 09/26/2023 03:02 At the request of: SHALONDA MARKER Procedure: XR abdomen min 2V EXAM: XR abdomen min 2V HISTORY: abd pain COMPARISON: None. TECHNIQUE: 2 views of the abdomen were obtained. FINDINGS: Contrast is seen throughout the colon to the rectum. Cholecystectomy clips are noted. There is a nonspecific bowel gas pattern without evidence of bowel obstruction. No intraperitoneal free air is seen. The imaged lung bases are clear. No acute osseous abnormality is seen. XR/XR abdomen min 2V IMPRESSION: 1. Contrast is seen throughout the colon to the rectum. No evidence of bowel obstruction is seen. Electronically authenticated by: Aviva SOTO Date: 09/26/2023 03:02
--- NOTE | 2023-09-25 23:20 | ED_ITS ---
HPI - Abdominal Pain General Chief Complaint: Abdominal Pain Stated Complaint: Abdominal Pain Time Seen by Provider: 09/25/23 22:50 Source: patient Mode of arrival: walk-in History of Present Illness HPI narrative: This 38-year-old female with a history of ovarian cysts and endometriosis who is status post cholecystectomy presents for evaluation of mid abdominal pain, she points to the periumbilical area, that goes into her back. The patient was admitted here on 09/18-09/20/23. She presented with abdominal pain. The initial CT scan with IV contrast only was inconclusive about ab intussusception. A CT scan with oral contrast was subsequently performed that did not show any intussusception. The patient received multiple doses of IV fentanyl for her pain at that time. She was feeling better in the morning and was discharged home. She did not require a surgical consultation and was feeling better in the morning and was discharged home. She did not require a surgical consultation. The patient states that she gets a lot of abdominal pain from her endometriosis. She has also had multiple ovarian cyst that required surgery. The CT scan from last week did not show any notable ovarian cysts other than a follicle in the right ovary. She states that she has been taking tramadol for pain but the pain is not resolved. She is not having any urinary symptoms. She is nauseated but has not vomited. She also has not had a bowel movement in at least 3 days which she states is normal for her but is passing gas. Related Data Home Medications ?Medication ?Instructions ?Recorded ?Confirmed alprazolam 0.25 mg tablet 0.25 mg PO Q8H PRN anxiety 09/20/23 09/25/23 citalopram 20 mg tablet (Celexa) 20 mg PO DAILY 09/20/23 09/25/23 Previous Rx's ?Medication ?Instructions ?Recorded tramadol 50 mg tablet 50 mg PO Q6H PRN Pain 5 days #20 09/20/23 tabs Allergies Allergy/AdvReac Type Severity Reaction Status Date / Time morphine Allergy Severe Verified 09/25/23 22:33 prochlorperazine AdvReac Mild Verified 09/25/23 22:33 [From Compazine] Review of Systems ROS Status of ROS 10 or more systems reviewed and unremark able except as noted in history and below [facility] Medical History (Updated 09/26/23 @ 01:28 by Radha Joseph MD) Ovarian cyst ?N83.209 - Unspecified ovarian cyst, unspecified side (ICD-10) Endometriosis ?N80.9 - Endometriosis, unspecified (ICD-10) LLQ abdominal pain ?R10.32 - Left lower quadrant pain (ICD-10) Complex cyst of left ovary ?N83.292 - Other ovarian cyst, left side (ICD-10) Toothache ?K08.89 - Other specified disorders of teeth and supporting structures (ICD- 10) Surgical History (Updated 09/20/23 @ 06:52 by Marichuy Daily RN) History of removal of cyst ?Z98.890 - Other specified postprocedural states (ICD-10) History of cholecystectomy ?Z90.49 - Acquired absence of other specified parts of digestive tract (ICD- 10) Family History (Updated 09/20/23 @ 05:46 by Marichuy Daily, FER) Family/Other No problems noted. Father Family history of CHF (congestive heart failure) Family history of COPD (chronic obstructive pulmonary disease) Family history of diabetes mellitus Family history of hypertension Family history of myocardial infarction Mother Family history of hypertension Other Family history of cancer Social History (Updated 09/20/23 @ 05:47 by Marichuy Daily, FER) Within the past year, how often did you have a drink containing alcohol: monthly or less Within the past year, how many standard drinks containing alcohol did you have on a typical day: 1 or 2 Within the past year, how often did you have six or more drinks on one occasion: never Total score: 0 Score interpretation: A score less than 3 is consistent with normal alcohol consumption. Smoking status: Never smoker Non-prescribed substance use: denies use Highest level of school completed/degree received: Associate degree: academic program Are you now , , , , never or living with a partner: In a typical week, how many times do you talk on the telephone with family, friends, or neighbors: 3 or more times per week How often do you get together with friends or relatives: 3 or more times per week Little interest or pleasure in doing things: not at all Feeling down, depressed, or hopeless: not at all Feel stressed/tense/nervous/anxious/difficulty sleeping: not at all Do you think of yourself as: straight/heterosexual Gender Identity: female Exam Narrative Exam Narrative: Nurses note and vital signs reviewed and patient is not hypoxic. Blood pressure is elevated at 154/110 General: Nontoxic but uncomfortable appearing female, no respiratory distress she is sitting on the stretcher and holding her mid abdomen and rocking back and forth Skin: Warm, dry, no pallor noted. There is no rash noted. Head: Normocephalic, atraumatic Eye: Normal conjunctiva, no drainage, EOMI. PERRL Ears, Nose, Mouth, and Throat: oral mucosa is moist. Nares patent. Mouth without vesicles. Ear canals patent. Tm's without Erythema Cardiovascular: Regular Rate and Rhythm Respiratory: Patient is in no distress, no accessory muscle use, lungs are clear to auscultation, no wheezing, rales or rhonchi Back: non-tender, no CVA tenderness bilaterally to percussion. GI: Normal bowel sounds, mid abdominal and LLQ tenderness with voluntary guarding, no rebound or rigidity noted Musculoskeletal: The patient has no evidence of calf tenderness, no pitting edema, symmetrical pulses noted bilaterally Neurological: A&O x4, normal speech Psychiatric: Cooperative Constitutional Vital Signs, click to edit/add: Last Vital Signs Temp 98 F 09/25/23 22:30 Pulse 98 H 09/25/23 22:30 Resp 18 09/25/23 22:30 BP 154/100 H 09/25/23 22:30 Pulse Ox 98 09/25/23 22:30 O2 Del Method Room Air 09/25/23 22:30 Course Vital Signs Vital signs: Vital Signs Temperature 98 F 09/25/23 22:30 Pulse Rate 98 H 09/25/23 22:30 Respiratory Rate 18 09/25/23 22:30 Blood Pressure 154/100 H 09/25/23 22:30 Pulse Oximetry 98 09/25/23 22:30 Oxygen Delivery Method Room Air 09/25/23 22:30 Temperature 98 F 09/25/23 22:30 Pulse Rate 98 H 09/25/23 22:30 Respiratory Rate 18 09/25/23 22:30 Blood Pressure 154/100 H 09/25/23 22:30 Pulse Oximetry 98 09/25/23 22:30 Oxygen Delivery Method Room Air 09/25/23 22:30 MDM - Abdominal Pain MDM Narrative Medical decision making narrative: This 38-year-old female presents for evaluation of recurrent abdominal pain. She was admitted here last Tuesday for abdominal pain. At that time her initialCT scan showed a questionable intussusception but after oral contrast there was no intussusception noted. She is under the impression that she had an intussusception that resolved however I explained to her that this is likely not the case and the CT scan reading was erroneous initially. She states she is having mid abdominal pain that goes into her back similar to the pain that she had at that time. She has nausea but no vomiting. She is also constipated and has not had a bowel movement for at least 3 days, she states that she is passing gas. She did receive multiple doses of IV fentanyl while hospitalized. She is also taking tramadol for pain. The patient's vital signs are stable, she was tender diffusely in her abdomen with no localizing signs. She is not having any vomiting or diarrhea. An IV was unable to be obtained so she was medicated with IM Toradol, Bentyl and Zofran. Routine labs were ordered and are reviewed. She has a normal white count and hemoglobin. Electrolytes are normal. Routine labs were ordered and are reviewed. She has a normal white count and hemoglobin. Electrolytes are normal. LFTs and lipase are normal. 2 view abdominal series xray does not show any signs of obstruction and in fact the oral contrast from one week ago is still present in her abdomen suggesting t hat she has low motility in her gut. She had several requests for 'a shot' of pain medications. I explained to her that I am concerned that her pain is related to having had so much pain medication while being seen last week that she is constipated an I am reluctant to give her IV pain medication. I agreed to give her a dose of Percocet. Immediately after receiving this medication, she requests to be discharged and left the ED prior to getting her paperwork. Lab Data Labs: Lab Results 09/25/23 09/25/23 Range/Units 23:30 23:35 WBC 9.3 (4.0-11.0) 10^3/uL RBC 4.86 (4.20-5.40) 10^6/uL Hgb 11.1 L (12.0-16.0) g/dL Hct 37.3 (36.0-48.0) % MCV 76.7 L (81.0-99.0) fL MCH 22.8 L (26.7-34.0) pg MCHC 29.8 L (29.9-35.2) g/dL RDW 16.7 H (11.0-15.0) % Plt Count 502 H (150-450) 10^3/uL MPV 9.2 L (9.5-13.5) fL Neut % (Auto) 68.8 (43.0-75.0) % Lymph % (Auto) 25.1 (20.5-60.0) % [place] % (Auto) 5.3 (1.7-12.0) % Eos % (Auto) 0.1 L (0.9-7.0) % Baso % (Auto) 0.5 (0.2-2.0) % Neut # (Auto) 6.4 (1.4-6.5) 10^3/uL Lymph # (Auto) 2.3 (1.2-3.8) 10^3/uL [place] # (Auto) 0.5 (0.3-0.8) 10^3/uL Eos # (Auto) 0.0 (0.0-0.7) 10^3/uL Baso # (Auto) 0.1 (0.0-0.1) 10^3/uL Abs Immat Gran (auto) 0.02 (0.00-0.03) 10^3/uL Imm/Tot Granulo (auto) 0.2 (0.0-0.5) % Sodium 139 (136-145) mmol/L Potassium 3.6 (3.5-5.1) mmol/L Chloride 104 (98-107) mmol/L Carbon Dioxide 22.5 (21.0-32.0) mmol/L Anion Gap 16.1 BUN 6.0 L (7.0-18.0) mg/dL Creatinine 0.88 (0.55-1.02) mg/dL Est GFR ( Amer) >60 (>=60) Est GFR (Non-Af Amer) >60 (>=60) BUN/Creatinine Ratio 6.8 Glucose 101 (74-106) mg/dL Calcium 10.1 (8.5-10.1) mg/dL Total Bilirubin 0.5 (0.2-1.0) mg/dL AST 11 L (15-37) U/L ALT 15 (14-59) U/L Alkaline Phosphatase 81 (46-116) U/L Total Protein 8.5 H (6.4-8.2) g/dL Albumin 4.2 (3.4-5.0) g/dL Globulin 4.3 g/dL Albumin/Globulin Ratio 1.0 Lipase 38.0 (16.0-77.0) U/L Urine Color Lt. yellow (YELLOW) Urine Clarity Clear (CLEAR) Urine pH 7.0 (5.0-9.0) Ur Specific [place] 1.015 (1.005-1.025) Urine Protein Negative (NEG/TRACE) mg/dL Urine Glucose (UA) Negative (NEGATIVE) mg/dL Urine Ketones Negative (NEGATIVE) mg/dL Urine Occult Blood Trace-i (NEGATIVE) Urine Nitrite Negative (NEGATIVE) Urine Bilirubin Negative (NEGATIVE) Urine Urobilinogen 2.0 A (0.2-1.0) EU/dL Ur Leukocyte Esterase Moderate A (NEGATIVE) Urine RBC None seen (0-2) #/HPF Urine WBC 5-10 A (NONE SEEN) #/HPF Ur Squamous Epith Cells Many A (NONE/RARE) #/LPF Urine Crystals None seen (None Seen) #/HPF Urine Bacteria Moderate A (NONE SEEN) #/HPF Urine Casts None seen (NONE SEEN) #/LPF Urine Mucus None seen (NONE SEEN) Ur Culture Indicated? Yes Discharge Plan Discharge Stand Alone Forms: Portal Instructions Chief Complaint: Abdominal Pain Clinical Impression: Constipation Patient Disposition: Home, Self-Care Time of Disposition Decision: 01:27 Condition: Good Prescriptions / Home Meds: No Action alprazolam 0.25 mg tablet 0.25 mg PO Q8H PRN (Reason: anxiety) citalopram [Celexa] 20 mg tablet 20 mg PO DAILY tramadol 50 mg Tablet 50 mg PO Q6H PRN (Reason: Pain) 5 Days Qty: 20 0RF Print Language: Greenlandic Instructions: Constipation (ED), Abdominal Pain (ED) Referrals: Physician,Non-Staff, MD [Primary Care Provider] - 1 week Discharge Date/Time: 09/26/23 01:53
[2023-09-25 23:43] LABS: Basophils Absolute Auto 0.1 10^3/uL (0.0-0.1); Basophils Percent Auto 0.5 % (0.2-2.0); Eosinophils Percent Auto 0.1 % (0.9-7.0); Hematocrit 37.3 % (36.0-48.0); Hemoglobin 11.1 g/dL (12.0-16.0); Immature Granulocytes Abs Auto 0.02 10^3/uL (0.00-0.03); Immature Granulocytes Pct Auto 0.2 % (0.0-0.5); Lymphocytes Absolute Auto 2.3 10^3/uL (1.2-3.8); Lymphocytes Percent Auto 25.1 % (20.5-60.0); Mean Corpuscular HGB Conc 29.8 g/dL (29.9-35.2); Mean Corpuscular Hemoglobin 22.8 pg (26.7-34.0); Mean Corpuscular Volume 76.7 fL (81.0-99.0); Mean Platelet Volume 9.2 fL (9.5-13.5); Monocytes Absolute Auto 0.5 10^3/uL (0.3-0.8); Monocytes Percent Auto 5.3 % (1.7-12.0); Neutrophils Absolute Auto 6.4 10^3/uL (1.4-6.5); Neutrophils Percent Auto 68.8 % (43.0-75.0); Platelet Count 502 10^3/uL (150-450); Red Blood Count 4.86 10^6/uL (4.20-5.40); Red Cell Distribution Width 16.7 % (11.0-15.0); White Blood Count 9.3 10^3/uL (4.0-11.0)
[2023-09-25 23:44] LABS: Bilirubin Urine NEGATIVE (NEGATIVE); Blood Urine TRACE-I (NEGATIVE); Clarity Urine CLEAR (CLEAR); Color Urine LT. YELLOW (YELLOW); Glucose Urine UA NEGATIVE (NEGATIVE); Ketones Urine NEGATIVE (NEGATIVE); Leukocyte Esterase Urine MODERATE (NEGATIVE); Nitrite Urine NEGATIVE (NEGATIVE); Protein Urine NEGATIVE (NEG/TRACE); Specific Gravity Urine 1.015 (1.005-1.025)
[2023-09-25] MEDS: DICYCLOMINE HCL 20 MG/2 ML VIAL IM (23:46)
[2023-09-25] MEDS: KETOROLAC TROMETHAMINE 60 MG/2 ML VIAL IM (23:46)
[2023-09-25] MEDS: ONDANSETRON 4 MG RAPDIS TABLET SL (23:46)
[2023-09-25 23:51] LABS: RBC Urine NONE SEEN #/HPF (0-2)
[2023-09-25 23:52] LABS: Bacteria Urine MODERATE #/HPF (NONE SEEN); Cast Seen? NONE SEEN #/LPF (NONE SEEN); Crystals Seen? None Seen #/HPF (None Seen); Mucus Urine NONE SEEN (NONE SEEN); Squamous Epithelial Cell Urine MANY #/LPF (NONE/RARE); Urine Culture Indicated YES
[2023-09-25 23:57] LABS: Alanine Aminotransferase 15 U/L (14-59); Albumin Level 4.2 g/dL (3.4-5.0); Alkaline Phosphatase 81 U/L (46-116); Anion Gap 16.1; Aspartate Amino Transferase 11 U/L (15-37); BUN Creatinine Ratio 6.8; Bilirubin Total 0.5 mg/dL (0.2-1.0); Calcium 10.1 mg/dL (8.5-10.1); Carbon Dioxide 22.5 mmol/L (21.0-32.0); Chloride 104 mmol/L (98-107); Estimated GFR (African America >60 (>=60); Estimated GFR (Non-African Ame >60 (>=60); Globulin 4.3 g/dL; Glucose 101 mg/dL (74-106); Potassium 3.6 mmol/L (3.5-5.1); Sodium 139 mmol/L (136-145); Total Protein 8.5 g/dL (6.4-8.2)
[2023-09-26] MEDS: OXYCODONE HCL/ACETAMINOPHEN 5MG/325MG 1 TAB PO (01:25)
== END 2023-09-26 01:53 | disposition home or self-care (01) ==
PROVIDERS: Emergency Provider Emergency Medicine
DX: K59.00 Constipation, unspecified (principal); Z90.49 Acquired absence of other specified parts of digestive tract; Z79.899 Other long term (current) drug therapy; N80.9 Endometriosis, unspecified; Z98.890 Other specified postprocedural states
CPT/HCPCS: 36415; 74019; 80053; 81001; 83690; 85025; 87086; 96372; 99284; J0500

== ENCOUNTER 2023-10-22 14:37 | Emergency (ER) | payer BC, SELFPAY ==
--- OUTSIDE RECORDS SUMMARY | 2023-10-22 14:48 | XMS_ITS | CCD ---
Author Organization [facility] Care Team Providers Care Interactive Media Marketing Strategist Name Role Phone DO Jennifer Duran Primary Care Provider DO Augustus Santiago Attending Provider DO Amaury Barlow Emergency Provider Jennifer Duran Primary Care Physician [phone] Jennifer Duran Unavailable DO Jennifer Duran Primary Care Provider [phone] DO Jennifer Duran Attending Provider Jennifer Duran DO Primary Care Provider [phone] Jennifer Duran DO Unavailable [phone] Didier BARNETT, Penola P Unavailable Jennifer Duran DO Primary Care Provider Jennifer Duran DO Unavailable [phone] DO Jennifer Duran Primary Care Provider DO Jennifer Duran Attending Provider MD Yevgeniy Cabrera Jr Emergency Provider DO Kiko Saenz Admit Provider DO Kiko Saenz Attending Provider [phone] Jennifer Duran DO Primary Care Provider [phone] Jennifer Duran DO Unavailable [phone] Didier BARNETT, Penola P Unavailable JENNIFER DURAN Primary Care Unavailable GIL NI Referring Unavailable IGL NI Referring Unavailable JENNIFER DURAN Primary Care Unavailable GIL IN Attending Unavailable JENNIFER DURAN Referring Unavailable JENNIFER DURAN Primary Care Unavailable SABA REYNOLDS Referring Unavailable JENNIFER DURAN Primary Care Unavailable BELKIS SANDOVAL Admitting Unavailable DR JENNIFER DURAN Primary Care Unavailable MARTITA, DR JASMIN Rosenbaum Consulting Unavailabl e BELKIS SANDOVAL Attending Unavailable KIMMIE, DR AUBREY Varghese Consulting Unavailable BELKIS SANDOVAL Consulting Unavailable DO Jennifer Duran Primary Care Provider [phone] Manuel, DO Elier Leos Emergency Provider DO Ming Childress Emergency Provider UnaMD Megan Gongora Admit Provider [phone] MD Megan Muniz Attending Provider DO Kiko Saenz Other Provider MD Christi Aquino Attending Provider [phone] DO Jaime Aleman Attending Provider [facility] Primary Care Physician Unavailab le DO Jennifer Duran Primary Care Provider [phone] Manuel, DO Elier Leos Emergency Provider DO Jaime Aleman Attending Provider DO Ming Childress Emergency Provider UnaMD Megan Gongora Admit Provider [phone] MD Christi Aquino Attending Provider [phone] Letty, DO Hoover Other Provider NO FAMILY, PHYSICIAN Primary Care [...] Heath Attending Unavailable Jignesh Dumont Attending Unavailable Konstantin Penny Attending Unavailable Ritesh Heath Attending Unavailable TARNU CLEVELAND Attending Unavailable Allergies Allergy Classification Reported Allergen(s) Allergy Type Date of Onset Reaction(s) Facility (16 sources) Morphine; Translations: [MORPHINE] Drug Allergy 9 Other: See Comments, Itching (finding) [facility] (19 sources) Atenol[facility] 3 [facility] seasoninig Propensity to adverse reactions Unknown Spyder Lynk Other (1 source) Morphine Drug Allergy 3 [facility] (13 sources) Seasonal allergy Propensity to adverse reactions 3 Unknown, Watery Eye [facility] (1 source) Morphine Drug Allergy 3 [facility] (4 sources) Prochlorperazin e; Translations: [prochlorperazi ne] Drug Allergy Feeling nervous (finding) [facility] (1 source) No Known Medication Allergies; Translations: [No Known Medication Allergies] Propensity to adverse reactions (disorder) [facility] Repository Medications Current Medications Medication Drug Class(es) Dates Sig (Normalized) Sig (Original) acetaminophen 325 mg / oxyCODONE hydrochloride 5 mg oral tablet (15 sources) Opioid Agonist Start: 07-31-2023 End: 08-03-2023 [...] 20 March 29, 2023 April 30, 2023 6:33pm Start: 02-06-2023 End: 03-29-2023 take 1 tablet by mouth every four to six hours Oxycodone-Acetaminophen (Percocet) 5-325 mg tablet Discontinued 1 TAB PO EVERY 4-6 HOURS 03 18February 06, 2023 March 29, 2023 1:48am ALPRAZolam 0.25 mg oral tablet (20 sources) Benzodiazepine Start: 09-14-2023 End: 09-14-2023 Alprazolam Active 0.25 MG PO .COMPLEX 24 September 14, 2023 2:59pm 0.25 mg orally Q8-12 hrs as needed for anxiety Start: 01-12-2023 Xanax 0.25 MG 1 tablet Orally q8-12 hrs prn anxiety for 8 days Jan, Active Start: 12-04-2021 End: 03-29-2023 take 1 tablet by mouth once daily Alprazolam (Xanax) 0.25 mg tablet Discontinued 0.25 MG PO Daily April 28, 2022 1:00am March 29, 2023 1:48am Start: 12-04-2021 End: 09-14-2023 take 0.25 mg by mouth three times daily Alprazolam Discontinued 0.25 MG PO Three times daily March 29, 2023 12:00am September 14, 2023 2:59pm Start: 03-12-2019 Xanax 0.5 MG 1 /2 [...] day(s), # 250 mL, Refills(s) 0, Pharmacy: [facility]/pharmacy #[id number], 166, cm, 12/04/21 12:54:00 EDT, Height/Length Dosing, 84, kg, 12/04/21 12:54:00 EDT, Weight Dosing Start Date: 12/04/21 Stop Date: 12/14/21 Status: Ordered aspirin 81 mg oral tablet (13 sources) Platelet Aggregation Inhibitor, Nonsteroidal Anti-inflammatory Drug Start: 05-18-20 take 1 tablet by mouth once daily [...] with food for 10 days Sep, Active diflunisal 500 mg oral tablet (2 sources) Nonsteroidal Anti-inflammatory Drug Start: 09-26-2023 take 1 tablet by mouth every twelve hours diflunisal 500 mg Tab 500 mg = 1 tab(s), Oral, q12hr, # 20 tab(s), Refills(s) 0, Pharmacy: [facility]/pharmacy #[id number], 165, cm, 09/26/23 14:18:00 EDT, Height/Length Dosing, 81.2, kg, 09/26/23 14:18:00 EDT, Weight Dosing Start Date: 09/26/23 Status: Ordered doxycycline hyclate 100 mg oral capsule (12 sources) Tetracycline-class Drug Start: 04-11-2023 take 1 capsule by mouth every twelve hours Doxycycline Hyclate 100 MG 1 capsule Orally Twice a day for 10 days Mar, Active Start: 06-20-2019 End: 04-28-2022 take 100 mg by mouth twice daily Doxycycline Monohydrate Discontinued 100 MG PO Twice daily June 20, 2019 1:00am April 28, 2022 1:50am ferrous sulfate (20 sources) Start: 07-23-2020 take [...] MG PO Twice daily July 15, 2018 1:00am June 20, 2019 8:08pm hyoscyamine sulfate 0.125 mg oral tablet (2 sources) Start: 09-26-2023 End: 10-01-2023 take 1 tablet by mouth four times daily Levsin 0.125 mg SL Tab 0.125 mg = 1 tab(s), Oral, QID, X 5 day(s), # 20 tab(s), Refills(s) 0, Pharmacy: [facility]/pharmacy #[id number], 165, cm, 09/26/23 14:18:00 EDT, Height/Length Dosing, 81.2, kg, 09/26/23 14:18:00 EDT, Weight Dosing Start Date: 09/26/23 Stop Date: 10/01/23 Status: Ordered mupirocin 0.02 mg/mg topical ointment (1 source) RNA Synthetase Inhibitor Antibacterial Start: 12-04-2021 End: 12-14-2021 mupirocin Top 2% Oint 1 luis, Topical, TID for 10 day(s), 22 gm, Refill(s) 0, [facility]/pharmacy #[id number], 166, cm, 12/04/21 12:54:00 EDT, Height/Length Dosing, 84, kg, 12/04/21 12:54:00 EDT, Weight Dosing Start Date: 12/04/21 Stop Date: 12/14/21 Status: Ordered ondansetron 4 mg oral tablet (12 sources) Serotonin-3 Receptor Antagonist Start: 03-29-2023 take 4 mg by mouth every eight hours Ondansetron Hcl Active 4 MG PO Q8H 15 March 29, 2023 12:00am Start: 09-14-2021 End: 04-28-2022 take 4 mg by mouth three times daily Ondansetron Discontinued 4 MG PO Three times daily 9 September 14, 2021 12:00am April 28, 2022 1:50am oxyCODONE hydrochloride 5 mg oral capsule (6 sources) Opioid Agonist Start: 04-24-2023 End: 04-27-2023 oxyCODONE 5 mg Cap 5 mg = 1 cap(s), Oral, q6hr, PRN Pain 8-10, X 3 day(s), # 12 cap(s), Refills(s) 0, Pharmacy: [facility]/pharmacy #[id number], 165.1, cm, 04/24/23 13:32:00 EST, Height/Length Dosing, 84, kg, 04/24/23 13:32:00 EST, Weight Dosing Start Date: 04/24/23 Stop Date: 04/27/23 Status: Ordered Start: 04-03-2023 End: 04-30-2023 take 5 mg by mouth every four hours Oxycodone Discontinued 5 MG PO Q4H 18 April 03, 2023 April 30, 2023 6:33pm Start: 03-29-2023 take 5 mg by mouth e very six hours Oxycodone Active 5 MG PO Q6H 12 March 29, 2023 polyethylene glycol 3350 38127 mg powder for oral solution (2 sources) Osmotic Laxative Start: 09-26-2023 End: 10-03-2023 take 17 g by mouth once daily Miralax 3350 17 gram packet 17 gm, Oral, Daily, X 7 day(s), # 119 gm, Refills(s) 0, Pharmacy: [facility]/pharmacy #[id number], 165, cm, 09/26/23 14:18:00 EDT, Height/Length Dosing, 81.2, kg, 09/26/23 14:18:00 EDT, Weight Dosing Start Date: 09/26/23 Stop Date: 10/03/23 Status: Ordered Symbicort 80/4.5 inhalation aerosol with adapter (5 sources) Start: 12-04-2021 Symbicort 80/4 .5 inhalation aerosol with adapter Refill(s) 0 Start Date: 12/04/21 Status: Ordered Vitamin C 500 MG (10 sources) Start: 03-25-2020 take 1 tablet by mouth once daily Vitamin C 500 MG 1 tablet Orally Once a day Mar, Active Womens One Daily - (10 sources) Start: 03-25-2020 Womens One Elle ly - as directed Orally Mar, Active Completed/Discontinued Medications Medication Drug Class(es) Dates Sig (Normalized) Sig (Original) acetaminophen 325 mg / HYDROcodone bitartrate 5 mg oral tablet (11 sources) Opioid Agonist Start: 09-14-2021 End: 04-28-2022 take 1 tablet by mouth three times daily Hydrocodone-Acetam inophen Discontinued 1 TAB PO Three times daily 02 13September 14, 2021 April 28, 2022 1:50am [id number] 200 actuat albuterol 0.09 mg/actuat metered dose inhaler (11 sources) beta2-Adrenergic Agonist Start: 06-20-2019 End: 04-28-2022 take 1 puff(s) by inhalation every four to six hours Albuterol Sulfate Discontinued 2 PUFF INHALATION EVERY 4-6 HOURS June 20, 2019 1:00am April 28, 2022 1:51am amoxicillin 875 mg / clavulanate 125 mg oral tablet (20 sources) Penicillin-class Antibacterial Start: 07-28-2023 End: 10-18-2023 take 1 tablet by mouth twice daily at mealtime Amoxicillin-Pot Clavulanate Discontinued 1 TAB PO Twice daily 01 04October 04, 2023 10:41am October 18, 2023 3:11pm Take with food Start: 04-18-2023 take 10 [...] Start: 08-03-2021 take 1 tablet by suman twice daily at mealtime Amoxicillin-Pot Clavulanate 875-125 MG 1 tablet Orally bid with food for 10 day(s) Jul, Not-Taking atenolol 25 mg oral tablet (12 sources) beta-Adrenergic Graciela Start: 10-20-2020 End: 03-10-2022 atenolol (TENORMIN) 25 mg tablet azithromycin 250 mg oral tablet (11 sources) Macrolide Antimicrobial Start: 04-17-2021 End: 04-28-2022 Azithromycin Discontinued 0 PO .COMPLEX 6 April 17, 2021 12:00am April 28, 2022 1:50am take 500 mg today (day 1), then 250 mg for 4 days (days 2-5) benzonatate 100 mg oral capsule (5 sources) Non-narcotic Antitussive Start: 08-18-2021 take 2 capsules by mouth three times daily for cough Tessalon Perles 100 MG 2 capsules Orally Three times a day for cough Aug, Not-Taking citalopram 20 mg oral tablet (20 sources) Serotonin Reuptake Inhibitor Start: 06-20-2019 End: 03-29-2023 take 20 mg by mouth once daily Citalopram Discontinued 20 MG PO Daily April 28, 2022 1:00am March 29, 2023 1:48am Comment on above: Take 20 mg by mouth once daily. codeine phosphate 2 mg/ml / guaiFENesin 20 mg/ml oral solution (11 sources) Opioid Agonist Start: 06-20-2019 End: 04-28-2022 take 1 mL by mouth every four to six hours Codeine-Guaifenesin Discontinued 10 ML PO EVERY 4-6 HOURS June 20, 2019 1:00am April 28, 2022 1:50am dextromethorphan hydrobromide 30 mg / pyrilamine maleate 30 mg oral tablet (7 sources) Uncompetitive G-[place]-aspart[place] e Receptor Antagonist, Sigma-1 Agonist Start: 08-11-2021 take 1 tablet by mouth every six hours as needed [place] DMT 30-30 MG 1 tablet Orally q6 hrs prn Aug, Not-Taking diphenhydrAMINE hydrochloride 25 mg oral capsule (7 sources) Histamine-1 Receptor Antagonist take 1 capsule by mouth every six hours as needed diphenhydrAMINE (BENADRYL) 25 mg capsule Take 25 mg by mouth every 6 hours as needed. 0 Active Comment on above: Take 25 mg by mouth every 6 hours as needed. homatropine methylbromide 0.3 mg/ml / HYDROcodone bitartrate 1 mg/ml oral solution (20 sources) Opioid Agonist, Cholinergic Muscarinic Agonist Start: 07-28-2023 End: 09-07-2023 Hydrocodone-Homatro pine (Hycodan) 5-1.5 mg/5 mL (5 mL) syrup Discontinued 5 ML PO Every 6 hours 140 7 July 28, 2023 September 07, 2023 1:57pm Start: 06-07-2023 HYDROcodone Bi t-Homatrop MBr 5-1.5 [...] hrs prn for 7 days May, Active Hydrocodone-Homatropine (Hycodan) 5-1.5 mg/5 mL (5 mL) syrup (2 sources) Start: 09-07-2023 End: 09-07-2023 Hydrocodone-Homatropine (Hycodan) 5-1.5 mg/5 mL (5 mL) syrup Discontinued 5 ML PO Every 6 hours 140 7 September 07, 2023 September 07, 2023 2:42pm Start: 09-07-2023 End: 10-04-2023 Hydrocodone-Homatropine (Hyc odan) 5-1.5 mg/5 mL (5 mL) syrup Discontinued 5 ML PO Every 6 hours 140 7 September 07, 2023 October 04, 2023 10:42am HYDROmorphone hydrochloride 2 mg oral tablet (8 sources) Opioid Agonist Start: 04-28-2022 End: 03-29-2023 take 1 tablet by mouth every four hours Hydromorphone (Dilaudid) 2 mg tablet Discontinued 2 MG PO Q4H 30 April 28, 2022 March 29, 2023 1:48am ibuprofen 600 mg oral tablet (10 sources) Nonsteroidal Anti-inflammatory Drug Start: 04-28-2022 End: 03-29-2023 take 600 mg by mouth every six hours Ibuprofen Discontinued 600 MG PO Q6H April 28, 2022 1:00am March 29, 2023 1:48am Start: 07-07-2018 End: 03-10-2022 take 1 tablet [...] once daily. naproxen 500 mg oral tablet (7 sources) Nonsteroidal Anti-inflammatory Drug Start: 3 End: 3 take 500 mg by mouth twice daily Naproxen Discontinued 500 MG PO Twice daily March 29, 2023 12:00am April 30, 2023 6:33pm potassium chloride 20 meq extended release oral tablet (10 sources) Start: 2 End: 2 take 20 mEq by mouth once daily Potassium Chloride Discontinued 20 MEQ PO Daily September 14, 2021 12:00am April 28, 2022 1:50am predniSONE 20 mg oral tablet (20 sources) Start: 2 predniSONE 20 MG take 3 tablets Orally x3 days, then 2 tabs x3 days then 1 tab a day x3 days with food or milk for 9 days Aug, Not-Taking Start: 04-17-2021 End: 04-28-2022 take 50 mg by mouth once daily at mealtime Prednisone Discontinued 50 MG PO Daily 5 April 17, 2021 12:00am April 28, 2022 1:50am administer with food or milk Start: 06-20-2019 End: 04-28-2022 take 40 mg by mouth once daily Prednisone Discontinued 40 MG PO Daily 10 June 20, 2019 1:00am April 28, 2022 1:50am prochlorperazine 5 mg oral tablet (6 sources) Phenothiazine Start: 03-29-2023 End: 04-30-2023 take 5 mg by mouth every eight hours Prochlorperazine Maleate Discontinued 5 MG PO Q8H 20 March 29, 2023 12:00am April 30, 2023 6:33pm Problems Active Problems Problem Classification Problem Date Documented Da te Episodic/Chronic Abdominal pain (20 sources) Pain in pelvis; Translations: [Pelvic and perineal pain] Onset: 05-30-2018 07-06-2018 Episodic Anxiety disorders (20 sources) Anxiety; Translations: [Anxiety disorder, unspecified] Onset: 04-21-2021 Resolved: 01-07-2022 Chronic Cardiac dysrhythmias (15 sources) Tachycardia; Translations: [Tachycardia, unspecified] Onset: 04-21-2021 [...] unspecified] Onset: 04-21-2021 Resolved: 04-21-2021 Chronic Endometriosis (13 sources) Endometriosis (clinical); Translations: [Endometriosis, unspecified] Onset: 03-29-2023 03-29-2023 Chronic Fever of unknown origin (5 sources) Fever, unspecified; Translations: [Fever] Episodic Fluid and electrolyte disorders (11 sources) Hypokalemia; Translations: [Hypokalemia] 06-20-2019 Episodic Inflammatory [...] [Malabsorption of iron] Onset: 10-27-2020 Chronic Other gastrointestinal disorders (1 source) Constipation, unspecified; Translations: [Constipation, unspecified] Onset: 09-26-2023 Episodic Other hematologic conditions (1 source) Other abnormality of red blood cells; Translations: [Microcytosis] Onset: 06-22-2023 Episodic Other lower respiratory disease (11 sources) Dyspnea; Translations: [Dyspnea, unspecified] 06-20-2019 Episodic Other lower respiratory disease (6 sources) Cough; Translations: [Acute cough] 07-28-2023 Episodic Other nervous system disorders (20 sources) Paresthesia of upper limb; Translations: [Paresthesia of skin] Episodic Other nutritional; endocrine; and metabolic disorders (1 source) Obese class I; Translations: [Body mass index (BMI) 30.0-30.9, adult] Onset: 12-04-2021 Chronic Other screening for suspected conditions (not mental disorders or infectious disease) (3 sources) Other specified abnormal findings of blood chemistry; Translations: [No current problems or disability] Onset: 06-22-2023 12-04-2021 Episodic Other upper respiratory infections (2 sources) Sinusitis; Translations: [Chronic sinusitis, unspecified] 10-18-2023 Chronic Other upper respiratory infections (10 sources) Acute sinusitis, unspecified; Translations: [Acute sinusitis] [...] Test Name Value Interpretation Reference Range Facility C Urineon 10-02-2023 Bacteria identified Cx Nom (U) Microbiology PROCEDURE: Urine Culture [R1] SOURCE: U CleanCatch BODY SITE: COLLECTED DATE/TIME: 09/30/2023 00:08 EDT RECEIVED DATE/TIME: 09/30/2023 00:24 EDT START DATE/TIME: 09/30/2023 00:24 EDT FREE TEXT SOURCE: Ritesh Heath DO, DO, Noah S. FINAL REPORTS Final Report [] Verified Date/Time: 10/02/2023 07:19 EDT 4,000 cfu/ml Mixed skin contaminants Performing Locations R1: This test was performed at: [facility], [address] [place] [address], [id number]- , , Normal [facility] Comment on above: Performed By: #### 2 [id number], [id number], 8785605, [id number], [id number] #### [facility] [address] [place] [address] BMPon 09-30-2023 Anion gap [Moles/Vol] 13 mmol/L Normal 6-16 [facility] Comment on above: Performed By: #### 2 383613, 5539046, 4687528, [id number], 7484430 ####[facility] [address] [place] [address] Calcium [Mass/Vol] 9.1 mg/dL Normal 8.9-11.1 [facility] Comment on above: Performed By: #### 2 355992, 2996236, 9481126, [id number], 2597546 ####[facility] [address] [place] [address] Chloride [Moles/Vol] 105 mmol/L Normal 101-111 [facility] Comment on above: Performed By: #### 2 279463, 5360975, 7871869, [id number], 9469311 ####[facility] [address] [place] [address] CO2 [Moles/Vol] 23 mmol/L Normal 21-31 [facility] Comment on above: Performed By: #### 2 933472, 9718578, 2305488, 13512223, 0396390 ####[facility] [address] [place] [address] Creatinine [Mass/Vol] 0.8 mg/dL Normal 0.5-1.3 [facility] Comment on above: Performed By: #### 2 597370, 7569097, 4246904, 43768120, 0298507 ####[facility] [address] [place] [address] Glucose [Mass/Vol] 95 mg/dL Normal 55-199 [facility] Comment on above: Performed By: #### 2 756319, 7332349, 6111604, 87676657, 3121307 ####[facility] [address] [place] [address] Potassium [Moles/Vol] 3.1 mmol/L Low 3.5-5.3 [facility] Comment on above: Performed By: #### 2 726925, 1203004, 6548734, 47479398, 2253974 ####[facility] [address] [place] [address] Sodium [Moles/Vol] 138 mmol/L Normal 135-145 [facility] Comment on above: Performed By: #### 2 628673, 5612722, 5753651, 81636093, 8595266 ####[facility] [address] [place] [address] Urea nitrogen [Mass/Vol] 7 mg/dL Normal 5-21 [facility] Comment on above: Performed By: #### 2 143560, 0007482, 0132436, 61918781, 8527421 ####[facility] [address] [place] [address] Urea nitrogen/Creatinine [Mass ratio] 9 No Units Low 10-20 [facility] Comment on above: Performed By: #### 2 529711, 3175786, 2246513, 63673439, 0781655 ####[address] [address] CBC w/ Auto Diffon 4 Basophils/100 WBC (Bld) 0.3 % Normal 0.0-2.0 [facility] Comment on above: Performed By: #### 2 468965, 5232269, 1690758, 04585817, 6099942 ####[facility] [address] [place] [address] Basophils/Leukocytes Auto (Bld) [Pure # fraction] 0.0 E9/L Normal 0.0-0.2 [facility] Comment on above: Performed By: #### 2 302223, 0320260, 3454428, 28432747, 1447104 ####[address] [address] Eosinophils (Bld) [#/Vol] 0.0 E9/L Normal 0.0-0.5 [facility] Comment on above: Performed By: #### 2 619617, 1297732, 2443433, 01085878, 3267252 ####[address] [address] Eosinophils/100 WBC (Bld) 0.4 % Normal 0.0-8.0 [facility] Comment on above: Performed By: #### 2 883727, 4073878, 9898312, 81054025, 9811868 ####[place] [place] [address] Erythrocyte distribution width (RBC) [Ratio] 18.3 % High 10.9-14.2 [facility] Comment on above: Performed By: #### 2 719888, 6986850, 8146065, 74007127, 0014768 ####[address] [address] Hematocrit (Bld) [Volume fraction] 32.6 % Low 34.0-46.0 [facility] Comment on above: Performed By: #### 2 171100, 5849133, 2043621, 07589656, 6763225 ####[address] [address] Hemoglobin (Bld) [Mass/Vol] 10.3 g/dL Low 12.0-16.0 [facility] Comment on above: Performed By: #### 2 178109, 8839987, 2072764, 19641713, 7964218 ####[address] [address] Lymphocytes (Bld) [#/Vol] 4.1 E9/L High 1.0-4.0 [facility] Comment on above: Performed By: #### 2 820624, 0231988, 7163672, 62544347, 4527088 ####[address] [address] Lymphocytes/100 WBC (Bld) 39.5 % Normal 14.0-50.0 [facility] Comment on above: Performed By: #### 2 499643, 4043728, 4980305, 21594724, 3064392 ####[address] [address] MCH (RBC) [Entitic mass] 23.7 pg Low 27.0-34.0 [facility] Comment on above: Performed By: #### 2 498655, 9854118, 8130249, 14478805, 4463645 ####[place] [id number] MCHC (RBC) [Mass/Vol] 31.7 g/dL Normal 31.4-36.0 [facility] Comment on above: Performed By: #### 2 782314, 2274265, 4006637, 09846176, 5092043 ####[address] [address] MCV (RBC) [Entitic vol] 74.9 fL Low 80.0-100.0 [facility] Comment on above: Performed By: #### 2 879558, 0910826, 4990078, 81614011, 9480430 ####[place] [address] Monocytes (Bld) [#/Vol] 0.7 E9/L Normal 0.2-1.0 [facility] Comment on above: Performed By: #### 2 310333, 8454789, 3853799, 01616961, 9913562 ####[place] [address] Neutrophils (Bld) [#/Vol] 5.4 E9/L Normal 2.0-7.5 [facility] Comment on above: Performed By: #### 2 343813, 7279611, 0560390, 15000228, 0128842 ####[place] [address] Neutrophils/100 WBC (Bld) 53.1 % Normal 36.0-75.0 [facility] Comment on above: Performed By: #### 2 172261, 2390081, 1655518, 01417656, 2682437 ####[address] [address] Platelet 476.0 E9/L Normal 150.0-500.0 [facility] Comment on above: Performed By: #### 2 936443, 5471777, 3097788, 59862766, 5687235 ####[place] [address] Platelet mean volume (Bld) [Entitic vol] 7.7 fL Normal 6.4-10.8 [facility] Comment on above: Performed By: #### 2 842371, 9552185, 5185137, 28788430, 9427796 ####[facility] [address] [place] [address] RBC (Bld) [#/Vol] 4.3 E12/L Normal 4.3-5.9 [facility] Comment on above: Performed By: #### 2 649345, 2421007, 0608724, 92578990, 6134853 ####[facility] [address] [place] [address] WBC corrected for nucl RBC Auto (Bld) [#/Vol] 10.3 E9/L Normal 4.0-11.0 [facility] Comment on above: Performed By: #### 2 985004, 6912829, 9270034, 16837497, 2311934 ####[facility] [address] [place] [address] CHEMISTRYOrdered By: SYSTEM SYSTEM on 09-30-2023 Albumin [Mass/Vol] 4.4 g/dL Normal 3.3 - 5.0 gm/dL Remisol Chem Albumin/Globulin [Mass ratio] 1.5 {ratio} Normal 1.1 - 2.2 Remisol Chem ALP [Catalytic activity/Vol] 64 [iU]/d Normal 21 - 98 Int._Unit/L Remisol Chem ALT No additional P-5'-P [Catalytic activity/Vol] 9 [iU]/d Normal 6 - 46 Int._Unit/L Remisol Chem Anion gap [Moles/Vol] 13 mmol/L Normal 6 - 16 mEq/L R emisol Chem AST [Catalytic activity/Vol] 12 [iU]/d Normal 5 - 43 Int._Unit/L Remisol Chem Bilirubin [Mass/Vol] 0.2 mg/dL Normal 0.0 - 1 .1 mg/dL Remisol Chem Bilirubin.direct [Mass/Vol] 0.0 mg/dL Normal 0.0 - 0.4 mg/dL Remisol Chem Bilirubin.indirect [Mass or moles/Vol] 0.2 mg/dL Normal 0.1 - 0.9 mg/dL Remisol Chem Calcium [Mass/Vol] 9.1 mg/dL Normal 8.9 - 11. 1 mg/dL Rem[facility] Chem Chloride [Moles/Vol] 105 mmol/L Normal 101 - 1 11 mmol/L Remisol Chem CO2 [Moles/Vol] 23 mmol/L Normal 21 - 31 mmol/L [facility] Chem Creatinine [Mass/Vol] 0.8 mg/dL Normal 0.5 - 1.3 mg/dL [facility] Chem eGFR 97 mL/min/1.73 m2 Normal >=59mL/min /1 .73 m2 [facility] Chem Globulin (S) [Mass/Vol] 3.0 g/dL Normal 1.4 - 4.0 gm/dL [facility] Chem Glucose [Mass/Vol] 95 mg/dL Normal 55 - 199 mg/dL [facility] Chem Lipase [Catalytic activity/Vol] 61 U/L High 13 - 58 unit/L [facility] Chem Potassium [Moles/Vol] 3.1 mmol/L Low 3.5 - 5.3 mmol/L Remisol Chem Protein [Mass/Vol] 7.4 g/dL Normal 6.0 - 7.8 gm/dL Rem[facility] Chem Sodium [Moles/Vol] 138 mmol/L Normal 135 - 145 mmol/L Remisol Chem Urea nitrogen [Mass/Vol] 7 mg/dL Normal 5 - 21 mg/dL Remisol Chem Urea nitrogen/Creatinine [Mass ratio] 9 mg/mg Low 10 - 20 Remisol Chem Consent for Treatmenton 09-11 Consent for Treatment [id number] #1.00TIFF Normal [facility] Discharge Instructionson Discharge Instructions [id number] 6#1.00TIFF Normal [facility] ED Clinical Summaryon 2023 ED Clinical Summary [place] [id number] ED Clinical Summary Person Information Name: LIVIA NOYOLA/[facility] Age: 38 Years : 1985 Sex: Female Language: Ugandan PCP: NONE, XXXX Marital Status: Visit Id: Visit Reason: Medical problem - minor; Abdominal pain; ABD PAIN Speciality: Acuity: 3 Enc Type: Emergency Med Service: Emergency Arrival: 09/29/2023 23:38:37 Discharge: 09/30/2023 02:15:01 LOS: 000 02:37 Checkin: 09/29/2023 23:38:37 Checkout: 09/30/2023 02:15:01 Dispo Type: Home (Routine DC) EVENTS: Event Name Event Status Request Date/Time Start Date/Time Complete Date/Time Arrive Complete 09/29/2023 23:38:37 09/29/2023 23:38:37 09/29/2023 23:38:37 Document Home Meds Request 09/29/2023 23:38:37 Triage Complete 09/29/2023 23:38:37 09/29/2023 23:47:02 09/29/2023 23:47:02 Bed Assign Complete 09/29/2023 23:40:50 09/29/2023 23:40:50 09/29/2023 23:40:50 Dr Exam Complete 09/29/2023 23:40:50 09/29/2023 23:42:36 09/29/2023 23:42:36 RN Exam Complete 09/29/2023 23:40:50 09/29/2023 23:48:51 09/29/2023 23:48:51 Registration Complete 09/29/2023 23:41:25 09/29/2023 23:41:25 09/29/2023 23:41:25 Reg Complete Request 09/29/2023 23:41:25 Reg Bed Request Complete 09/29/2023 23:41:25 09/29/2023 23:41:25 09/29/2023 23:41:25 Registration Complete 09/29/2023 23:42:36 09/29/2023 23:52:00 09/29/2023 23:52:00 Meds Admin Complete 09/29/2023 23:50:18 09/30/2023 00:03:16 Pending Labs Complete 09/29/2023 23:50:18 09/30/2023 00:43:23 Lab Complete 09/29/2023 23:50:18 09/30/2023 00:43:23 Patient Care Complete 09/29/2023 23:50:18 09/30/2023 01:03:37 US Complete 09/29/2023 23:53:33 09/30/2023 02:03:37 Pending Labs Complete 09/29/2023 23:55:11 09/30/2023 00:19:28 Lab Complete 09/29/2023 23:55:11 09/30/2023 00:19:28 Urine Collect Complete 09/29/2023 23:55:11 09/30/2023 00:19:28 Pending Labs Complete 09/30/2023 00:14:51 09/30/2023 00:14:51 09/30/2023 00:43:23 Lab Complete 09/30/2023 00:14:51 09/30/2023 00:14:51 09/30/2023 00:43:24 Pending Labs Inlab 09/30/2023 00:21:59 09/30/2023 00:21:59 Lab Inlab 09/30/2023 00:21:59 09/30/2023 00:21:59 Patient Care Complete 09/30/2023 00:58:11 09/30/2023 01:02:08 Pending Labs Cancel 09/30/2023 00:58:11 09/30/2023 01:03:19 US Complete 09/30/2023 01:08:03 09/30/2023 02:04:34 Meds Admin Complete 09/30/2023 01:58:48 09/30/2023 02:09:33 Discharge Complete 09/30/2023 01:59:48 09/30/2023 02:15:05 09/30/2023 02:15:05 Meds Admin Complete 09/30/2023 02:00:40 09/30/2023 02:09:34 Transfer Complete 09/30/2023 02:15:05 09/30/2023 02:15:05 09/30/2023 02:15:05 ADDRESS: [address] [place] [id number] PHYS DOC NOTES: MEDICAL INFORMATION: Prescriptions Given: Medications to Continue with No Changes Other Medications alprazolam (alprazolam 0.25 mg Tab) budesonide-formotero l (Symbicort 80/4.5 inhalation aerosol with adapter) citalopram (citalopram 20 mg Tab) By Mouth every day. diflunisal (diflunisal 500 mg Tab) 1 Tablets By Mouth every 12 hours. Refills: 0. hyoscyamine (Levsin 0.125 mg SL Tab) 1 Tablets By Mouth 4 times a day for 5 Days. Refills: 0. polyethylene glycol 3350 (Miralax 3350 17 gram packet) 17 Gram By Mouth every day for 7 Days. Refills: 0. PATIENT EDUCATION INFORMATION: Instructions: Ovarian Cyst Follow up: With: Address: When: Ino Royal [address] [place] [address], [place] [address], [place] [address] Business (1) In 3 days 10/03/2023 DIAGNOSIS: AP (abdominal pain); Ovarian cyst Normal [facility] ED Note-Physicianon 09-30-19 ED Note-Physician Basic Information Time Seen: Ritesh Heath DO 09/29/2023 23:42 Chief Complaint pt states abdominal pain that started this morning. She was here last week dx w/ ovarian cyst and has f/u in 3 weeks but pain is worse. History of Present Illness HPI: Patient is a 38-year-old female with past ministry of endometriosis and ovarian cyst who presents the ED for abdominal pain. Patient states that she had recently been seen for similar pain and at that time was found to have a 5.5 cm ovarian cyst. She states that she had been feeling better until this morning she started having some pain again in the lower middle to the right side of her abdomen that radiates to her back. She states that this feels somewhat similar to the previous time she presented for this. She states that the pain worsened at about 2000 tonight and has not improved since that time. She did try taking oral tramadol, Toradol, Bentyl, and a Byron at home and has had no significant relief. She does have some nausea but no vomiting. No change in bowel movements. No urinary symptoms. She reports that she has had multiple ovarian cysts and did schedule a CYLINDER WORKER appointment for possible hysterectomy but that is upcoming in 3 weeks. ROS: Pertinent review of systems conducted and is negative except as noted above. Physical exam: General: nontoxic appearing and in no distress HEENT: Mucous membranes moist Neuro: awake and alert Neck: supple, trachea midline Card: Tachycardic, regular, no murmur or gallop Resp: Lungs clear to auscultation no wheeze or rhonchi Abd: Soft and nondistended. Suprapubic and right lower quadrant tenderness without rebound or guarding. No CVA tenderness. Ext: No gross deformity or edema Physical Exam Vitals & Measurements T: 36.5 ?C(Oral) HR: 139(Peripheral) RR: 20 BP: 144/92 SpO2: 100% HT: 165.10 cm WT: 84.6 kg BMI: 31.04 Medical Decision Making MEDICAL DECISION MAKING Number and Complexity of Problems Differential Diagnosis: [] [facility] Data External documents reviewed: N/A My EKG interpretation: Noted in chart if applicable My CT interpretation: N/A My X-ray interpretation: Noted in chart if applicable My Ultrasound interpretation: N/A Decision rules/scores evaluated: N/A Discussed with: N/A Treatment and Disposition ED Course: Arrival to the ED the patient is nontoxic-appearing and in no distress. She does have suprapubic and right lower quadrant tenderness on exam. I reviewed the imaging from September 25 at which time she had either several overlapping versus 1 large hemorrhagic cyst on the right ovary measuring 5.5 cm. At that time she had good blood flow to bilateral ovaries. My concern with such a large cyst is that with the worsening pain acutely tonight it could be due to torsion. Will order a ultrasound to further evaluate this as well as blood work and urinalysis. Patient was given a dose of Dilaudid for pain control. Blood work shows a mild hypokalemia of 3.1 but is otherwise overall reassuring. metal room dental technician reports that the ovarian cyst on the right ovary is approximately the same size as the previous study and there is blood flow present to bilateral ovaries. No other acute abnormality. Patient was given oral potassium replacement. I discussed these findings with the patient at bedside. We discussed the plan of discharge. She will continue to take NSAIDs and use a heating pad at home for comfort. We will give her the information for Dr. Royal and another CYLINDER WORKER in the area to see if he may be able to get her in sooner. Shared decision making: As above Code status: N/A Assessment/Plan AP (abdominal pain) (R10.9: Unspecified abdominal pain) Ovarian cyst (N83.209: Unspecified ovarian cyst, unspecified side) Orders: HYDROmorphone, 0.5 mg = 0.5 mL, Injection, IV Push, Once, Stop date 09/29/23 23:49:00 EDT, STAT, Start date 09/29/23 23:49:00 EDT, 09/29/23 23:49:00 EDT HYDROmorphone, 0.5 mg = 0.5 mL, Injection, IV Push, Once, Stop date 09/30/23 1:58:00 EDT, STAT, Start date 09/30/23 1:58:00 EDT, 09/30/23 1:58:00 EDT ondansetron, 4 mg = 2 mL, Injection, IV Push, Once, Stop date 09/29/23 23:49:00 EDT, STAT, Start date 09/29/23 23:49:00 EDT, 09/29/23 23:49:00 EDT potassium chloride, 40 mEq = 2 tab(s), Tab-ER, Oral, Once, Stop date 09/30/23 2:00:00 EDT, STAT, Start date 09/30/23 2:00:00 EDT, 09/30/23 2:00:00 EDT Sodium Chloride 0.9% intravenous solution, 1,000 mL, Soln-IV, IV, Once, Stop date 09/29/23 23:50:00 EDT, STAT, Start date 09/29/23 23:50:00 EDT, Infuse over 61, minute(s) Basic Metabolic Panel CBC w/ Auto Diff eGFR Hepatic Function Panel Lipase Level Saline Lock Insert U Beta Hcg Qual UA with Cult Rflx Urinary Catheter Insertion Urine Culture US Doppler Abd/Pelvis Complete US Doppler Abd/Pelvis Complete US Pelvis Non-OB Complete US Transvaginal Non-OB Medications Administered Given Dilaudid 1 mg/mL injectable solution, 0.5 mg, IV Push NS 1000 ml Bolus, 1000 mL, IV Zofran 4 mg/2 mL (more content not included)... Normal [place] [facility] Comment on above: Result Comment: Elec tronically Signed By: Ritesh Heath DO\.br\Date and Time Signed: 09/30/23 02:02 EDT ED Patient Education Noteon 09-30-2023 ED Patient Education Note Obstetrics and Gynecology [...] Follow these instructions at home: ? Take fytm-tjl-zokedjg and prescription medicines only as told by [...] Reviewed: 11/06/2020 Elsevier Patient Education ? 2022 [employer] Normal [facility] ED Patient Summaryon 024 ED Patient Summary [address] [address] Patient Discharge Instructions Person Information Name: LIVIA NOYOLA Age: 38 Years Arrival Date: 09/29/2023 23:38:37 Discharge Diagnosis: AP (abdominal pain); Ovarian cyst Primary Care Physician: NONE, XXXX Provider Information Primary Provider: Ritesh Heath DO Advanced Ore Buyer:Shazia The exam and treatment you received in the Emergency Department were for an urgent problem and are not intended as complete care. It is important that you follow up with a doctor, nurse practitioner, or physician?s office services assistant for ongoing care. If your symptoms become worse or you do not improve as expected and you are unable to reach your usual health care provider, you should return to the Emergency Department. We are available 24 hours a day. LIVIA NOYOLA has been given the following list of patient education materials, prescriptions and follow-up instructions: Follow-up Instructions: With: Address: When: Ino [address], [facility] [address], [place] [address] Business (1) In 3 days 10/03/2023 In the event that this physician does not participate in your insurance network, please consult with your insurance company to find a nearby participating provider. Patient Education Materials: Ovarian Cyst A MESSAGE TO ALL PATIENTS REGARDING OPIOIDS PRESCRIPTION OPIOIDS: WHAT YOU NEED TO KNOW Prescription opioids can be used to help relieve qybcqvcm-cb-jmruba pain and are often prescribed following a [...] be struggling with addiction, tell your health health care manager and ask for guidance or call SAM[employer]?S National Helpline at 2-583-654-ECEX. v Source: [place] Department o (more content not included)... Normal [facility] HEMATOLOGYOrdered By: SYSTEM SYSTEM on 09-30-2023 Basophils/100 WBC (Bld) 0.3 % Normal 0.0 - 2.0 % Remisol Heme Basophils/Leukocytes Auto (Bld) [Pure # fraction] 0.0 E9/L Normal 0.0 - 0.2 E9/L Remisol Heme Eosinophils (Bld) [#/Vol] 0.0 E9/L Normal 0.0 - 0.5 E9/L Remisol Heme Eosinophils/100 WBC (Bld) 0.4 % Normal 0.0 - 8.0 % Remisol Heme Erythrocyte distribution width (RBC) [Ratio] 18.3 % High 10.9 - 14.2 % Remisol Heme Hematocrit (Bld) [Volume fraction] 32.6 % Low 34.0 - 46.0 % Remisol Heme Hemoglobin (Bld) [Mass/Vol] 10.3 g/dL Low 12.0 - 16.0 gm/dL Remisol Heme Lymphocytes (Bld) [#/Vol] 4.1 E9/L High 1.0 - 4.0 E9/L Remisol Heme Lymphocytes/100 WBC (Bld) 39.5 % Normal 14.0 - 50.0 % Remisol Heme MCH (RBC) [Entitic mass] 23.7 pg Low 27.0 - 34.0 pg Remisol Heme MCHC (RBC) [Mass/Vol] 31.7 g/dL Normal 31.4 - 36.0 gm/dL Remisol Heme MCV (RBC) [Entitic vol] 74.9 fL Low 80.0 - 100.0 fL Remisol Heme Monocytes (Bld) [#/Vol] 0.7 E9/L Normal 0.2 - 1.0 E9/L Remisol Heme Monocytes/100 WBC (Bld) 6.7 % Normal 4.0 - 14.0 % Remisol Heme Neutrophils (Bld) [#/Vol] 5.4 E9/L Normal 2.0 - 7.5 E9/L Remisol Heme Neutrophils/100 WBC (Bld) 53.1 % Normal 36.0 - 75.0 % Remisol Heme Platelet 476.0 E9/L Normal 150.0 - 500.0 E9/L Remisol Heme Platelet mean volume (Bld) [Entitic vol] 7.7 fL Normal 6.4 - 10.8 fL Remisol Heme RBC (Bld) [#/Vol] 4.3 E12/L Normal 4.3 - 5.9 E12/L Rem[facility] Heme WBC corrected for nucl RBC Auto (Bld) [#/Vol] 10.3 E9/L Normal 4.0 - 11.0 E9/L Remisol Heme Hep Func Panelon 09-30-2023 Albumin [Mass/Vol] 4.4 g/dL Normal 3.3-5.0 [facility] Comment on above: Performed By: #### 2 867416, 2307184, 3541836, 74926297, 5152904 ####[facility] [address] [place] [address] Albumin/Globulin (S) [Mass conc ratio] 1.5 Normal 1.1-2.2 [facility] Comment on above: Performed By: #### 2 572386, 4864571, 7558234, 45057081, 7933868 ####[facility] [address] [place] [address] ALP [Catalytic activity/Vol] 64 Int._Unit/L Normal 21-98 [facility] Comment on above: Performed By: #### 2 807314, 0039528, 3673881, 28564358, 3807138 ####[facility] [address] [place] [address] ALT No additional P-5'-P [Catalytic activity/Vol] 9 Int._Unit/L Normal 6-46 [facility] Comment on above: Performed By: #### 2 753476, 5714904, 3809047, 85442334, 3561826 ####[facility] [address] [place] [address] AST [Catalytic activity/Vol] 12 Int._Unit/L Normal 5-43 [facility] Comment on above: Performed By: #### 2 764730, 7125904, 5775017, 10570347, 3742793 ####[facility] [address] [place] [address] Bilirubin [Mass/Vol] 0.2 mg/dL Normal 0.0-1.1 [facility] Comment on above: Performed By: #### 2 750083, 5977999, 4766278, 64860315, 3593323 ####[facility] [address] [place] [address] Bilirubin.direct [Mass/Vol] 0.0 mg/dL Normal 0.0-0.4 [facility] Comment on above: Performed By: #### 2 784108, 3966243, 0424810, 91462094, 0978864 ####[facility] [address] [place] [address] Bilirubin.indirect [Mass or moles/Vol] 0.2 mg/dL Normal 0.1-0.9 [facility] Comment on above: Performed By: #### 2 194495, 4981301, 4428471, 86835108, 7262010 ####[facility] [address] [place] [address] Globulin (S) [Mass/Vol] 3.0 g/dL Normal 1.4-4.0 [facility] Comment on above: Performed By: #### 2 749699, 9376556, 6016635, 19855226, 0512277 ####[address] [place] [address] Protein [Mass/Vol] 7.4 g/dL Normal 6.0-7.8 [facility] Comment on above: Performed By: #### 2 617844, 5891450, 0848032, 04237442, 8523422 ####[facility] [address] [place] [address] Lipase Levelon 09-30-2023 Lipase [Catalytic activity/Vol] 61 U/L High 13-58 [facility] Comment on above: Performed By: #### 2 204420, 5635492, 5916463, 66916382, 67361876 #### [facility] [address] [place] [address] SEROLOGYOrdered By: Ariadne Sheehan on 09-30-2023 HCG.beta subunit (U) [Moles/Vol] Negative Normal [facility] Man Sero U BetaHcg Qualon 09-30-2023 HCG.beta subunit (U) [Moles/Vol] Negative Normal [facility] Comment on above: Performed By: #### 2 515509, 5924010, 4972980, 46967637, 18937756 #### [facility] [address] [place] [address] UA with Cult Rflxon 09-30-19 24 Bacteria Auto Ql (U) Trace Normal Trace Fish [facility] Comment on above: Performed By: #### 2 841115, 6389153, 9262594, 64656054, 98121865 #### [facility] [address] [place] [address] Bilirubin Ql (U) Negative Normal Negative [facility] Comment on above: Performed By: #### 2 781841, 4934610, 7612566, 51327958, 51472247 #### [facility] [address] [place] [address] Clarity (U) Clear Normal Clear [facility] Comment on above: Performed By: #### 2 137331, 9578729, 9041833, 00875719, 16003878 #### [facility] [address] [place] [address] Color (U) Light-Yellow Normal Yellow [facility] Comment on above: Result Comment: Micr oscopic readings are only performed on those samples that meet specific criteria set forth by [facility]. Performed By: #### 2 141689, 3471368, 3657357, 71412963, 32896275 #### [facility] [address] [place] [address] Epithelial cells.squamous Auto (Urine sed) [#/Area] 3-4 Abnormal 0-2 [facility] Comment on above: Performed By: #### 2 912120, 2562080, 6978213, 10265218, 71779166 #### [facility] [address] [place] [address] Glucose Ql (U) Negative Normal Negative [facility] Comment on above: Performed By: #### 2 716836, 9943710, 2309484, 92704915, 51107003 #### [facility] [address] [place] [address] Hemoglobin Auto test strip (U) [Mass/Vol] Trace Abnormal Negative [facility] Comment on above: Performed By: #### 2 846978, 3268776, 8559918, 73699865, 27156466 #### [facility] [address] [place] [address] Ketones Auto test strip Ql (U) Negative Normal Negative [facility] Comment on above: Performed By: #### 2 004855, 4278214, 8095316, 61391161, 19560720 #### [facility] [address] [place] [address] Leukocyte esterase Auto test strip Ql (U) 75 Bertrand/uL Abnormal Negative [facility] Comment on above: Performed By: #### 2 102035, 7844145, 7912553, 29708816, 79896121 #### [facility] [address] [place] [address] Mucus Auto Ql (U) Negative Normal Negative [facility] Comment on above: Performed By: #### 2 957856, 3377439, 1134796, 64005315, 43801992 #### [facility] [address] [place] [address] Nitrite Auto test strip Ql (U) Negative Normal Negative [facility] Comment on above: Performed By: #### 2 846376, 0602721, 6688105, 55416266, 78772033 #### [facility] [address] [place] [address] pH (U) 5.5 [pH] Invalid Interpretation Code 5.0-9.0 [facility] Comment on above: Performed By: #### 2 038115, 8375280, 2445837, 96991692, 32516574 #### [facility] [address] [place] [address] Protein Ql (U) Negative Normal Negative [facility] Comment on above: Performed By: #### 2 440189, 0551385, 1984322, 87500706, 53553502 #### [facility] [address] [place] [address] RBC Ql (U) 4-20 Abnormal 0-3 [facility] Comment on above: Performed By: #### 2 896222, 8232465, 0361517, 13819877, 91859285 #### [facility] [address] [place], [place] [address] Specific gravity (U) [Rel density] 1.017 Invalid Interpretation Code 1.005-1.030 [facility] Comment on above: Performed By: #### 2 398769, 0081495, 2752874, 80580061, 73563924 #### [facility] [address] [place] [address] Urobilinogen (U) [Mass/Vol] Negative Normal Negative [facility] Comment on above: Performed By: #### 2 095039, 6894778, 7387521, 86774838, 92894774 #### [facility] [address] [place] [address] WBC Auto (Urine sed) [#/Area] 0-5 Normal 0-5 [facility] Comment on above: Performed By: #### 2 535661, 3774171, 3931805, 87167173, 42820302 #### [facility] [address] [place] [address] Type of Urine collection method Clean Catch Normal [facility] Comment on above: Performed By: #### 2 096214, 4092168, 0276919, 68120820, 25037629 #### [facility] [address] [place] [address] URINALYSISOrdered By: SYSTEM SYSTEM on 09-30-2023 Bacteria Auto Ql (U) Trace graded/HPF Normal Tra cegraded/ HPF [facility] UA Auto SS Bilirubin Ql (U) Negative Normal Negativemg/ d L [facility] UA Auto SS Clarity (U) Clear (09/30/23 12:08 AM) Normal Clear [facility] UA Auto SS Color (U) Light-Yellow 1 (09/30/23 12:08 AM) Normal Yellow [facility] UA Auto SS Comment on above: Interpretive Data: M icroscopic readings are only performed on those samples that meet specific criteria set forth by [facility]. Epithelial cells.squamous Auto (Urine sed) [#/Area] 3-4 graded/HPF Invalid Interpretation Code 0-2graded/HP F [facility] UA Auto SS Glucose Ql (U) Negative Normal Negativemg/d L [facility] UA Auto SS Hemoglobin Auto test strip (U) [Mass/Vol] Trace mg/dL Invalid Interpretation Code Negativemg/d L [facility] UA Auto SS Ketones Auto test strip Ql (U) Negative Normal Negativemg/d L [facility] UA Auto SS Leukocyte esterase Auto test strip Ql (U) 75 Bertrand/uL Bertrand/uL Invalid Interpretation Code NegativeLeu/ uL [facility] UA Auto SS Mucus Auto Ql (U) Negative Normal Negativegr ad ed/LPF [facility] UA Auto SS Nitrite Auto test strip Ql (U) Negative Normal Negativemg/d L [facility] UA Auto SS pH (U) 5.5 *NA* (09/30/23 12:08 AM) Invalid Interpretation Code 5.0 - 9.0 [facility] UA Auto SS Protein Ql (U) Negative Normal Negativemg/d L [facility] UA Auto SS RBC Ql (U) 4-20 graded/HPF Invalid Interpretation Code 0-3graded/HP F [facility] UA Auto SS Specific gravity (U) [Rel density] 1.017 *NA* (09/30/23 12:08 AM) Invalid Interpretation Code 1.005 - 1.030 [facility] UA Auto SS Urobilinogen (U) [Mass/Vol] Negative Normal Negativemg/d L [facility] UA Auto SS WBC Auto (Urine sed) [#/Area] 0-5 graded/HPF Normal 0-5graded/HP F [facility] UA Auto SS URINALYSISOrdered By: Ritesh bishop on 09-30-2023 UA Spec Desc Clean Catch (09/30/23 12:08 AM) Normal [facility] UA Auto SS US Doppler Abd/Pelvis Comple kelby 09-30-2023 US Doppler Abd/Pelvis Complete Exam Date/Time: 09/30/2023 02:04 EDT Reason for Exam: Torsion Report PLEASE SEE US Pelvis Non-OB Complete REPORT DATED: 09/30/2023. Ordering Provider: Ritesh Heath FINAL REPORT Dictated: 09/30/2023 4:11 am Harvey Leslie MD Signed (Electronic Signature): 09/30/2023 4:11 am Signed by: Harvey Leslie MD Transcribed by: MILLIE Technologist: GERDA Miller [facility] US Pelvis Non-OB Completeon 09-30-2023 US Pelvis Non-OB Complete Exam Date/Time: 09/30/2023 02:03 EDT Reason for Exam: Pelvic pain Report IMPRESSION: NO EVIDENCE OF OVARIAN TORSION, SIGNIFICANT FREE FLUID, OR OTHER SIGNIFICANT CHANGE FROM 4 DAYS AGO, NOTED. PROBABLE HEMORRHAGIC RIGHT OVARIAN CYSTS VERSUS ENDOMETRIOMAS. LOW-GRADE CYSTIC OVARIAN NEOPLASM IS ALSO A CONSIDERATION. FOLLOW-UP ULTRASOUND AGAIN SUGGESTED IN APPROXIMATELY 2 MONTHS. EXAM: US Pelvis Non-OB Complete, US Transvaginal Non-OB DATE: 09/30/2023 1:58 AM CLINICAL HISTORY: Pelvic pain. COMPARISON: CT abdomen and pelvis and pelvic ultrasound 09/26/2023. TECHNIQUE: Transabdominal ultrasound was performed to visualize the entirety of the pelvis. Transvaginal scanning was performed to provide better detail of the uterus and ovaries. Color and waveform Doppler analysis was performed primarily for evaluation of ovarian torsion. FINDINGS: The transabdominal study is mild to moderately limited by the patient's body habitus. Two adjacent right ovarian cysts containing internal low-level echoes and thin nonvascular septations appear unchanged from 09/26/2023, measuring approximately 5.5 x 3.4 x 2.2 cm in aggregate dimension. The left ovary appears within normal limits for the patient's age group. Equivalent blood flow is noted to both ovaries on Doppler analysis. There is no significant free fluid, abnormal adnexal masses, or other significant changes identified. The uterus is anteverted and mildly anteflexed in position, and otherwise unremarkable in appearance. The uterine measurements and estimated volume: Uterus Length: 9.0 cm Uterus Width: 5.1 cm Uterus Height: 3.9 cm Report Uterus Volume: 95.2 cm3 Endometrium Thickness: 1.1 cm The right ovary measurements and estimated volume: Right Ovary Length: 6.0 cm Right Ovary Width: 4.4 cm Right Ovary Height: 2.8 cm Right Ovary Volume: 38.8 cm3 The left ovary measurements and an estimated volume are: Left Ovary Length: 2.5 cm Left Ovary Width: 1.4 cm Left Ovary Height: 1.3 cm Left Ovary Volume: 2.3 cm3 Ordering Provider: Ritesh Heath FINAL REPORT Dictated: 09/30/2023 4:11 am Harvey Leslie MD Signed (Electronic Signature): 09/30/2023 4:11 am Signed by: Harvey Leslie MD Transcribed by: MILLIE Technologist: GERDA Technical Comments Transabdominal Ultrasound Performed Transvaginal Ultrasound Performed Uterus Position Anteverted [facility] US Transvaginal Non-OBon US Transvaginal Non-OB Exam Date/Time: 09/30/2023 02:03 EDT Reason for Exam: pssible torsion, known large cyst;Other (please specify) Report PLEASE SEE US Pelvis Non-OB Complete REPORT DATED: 09/30/2023. Ordering Provider: Ritesh Heath FINAL REPORT Dictated: 09/30/2023 4:11 am Harvey Leslie MD Signed (Electronic Signature): 09/30/2023 4:11 am Signed by: Harvey Leslie MD Transcribed by: MILLIE Technologist: GERDA Miller [facility] eGFRon 09-30-2023 eGFR 97 mL/min/1.73 m2 Normal >=59 [facility] Comment on above: Order Comment: Order added by Discern Expert. Performed By: #### 2 [id number], [id number], 8402722, [id number], [id number] #### [facility] [address] [place] [address] ED Clinical Summaryon 2023 ED Clinical Summary [address] [address] ED Clinical Summary Person Information [facility] Age[facility] 38 Years : 1985 Sex: Female Language: Ugandan PCP: NONE, XXXX Marital Status: Visit Id: Visit Reason: Nausea; Abdominal pain; ABD PAIN Speciality: Acuity: 3 Enc Type: Emergency Med Service: Emergency Arrival: 09/26/2023 13:54:18 Discharge: 09/26/2023 18:13:51 LOS: 000 04:19 Checkin: 09/26/2023 13:54:18 Checkout: 09/26/2023 18:13:51 Dispo Type: Home (Routine DC) EVENTS: Event Name Event Status Request Date/Time Start Date/Time Complete Date/Time Arrive Complete 09/26/2023 13:54:18 09/26/2023 13:54:18 09/26/2023 13:54:18 Document Home Meds Request 09/26/2023 13:54:18 Triage Complete 09/26/2023 13:54:18 09/26/2023 14:18:15 09/26/2023 14:18:15 Registration Complete 09/26/2023 13:57:15 09/26/2023 13:57:15 09/26/2023 13:57:15 Reg Complete Request 09/26/2023 13:57:15 Reg Bed Request Complete 09/26/2023 13:57:15 09/26/2023 13:57:15 09/26/2023 13:57:15 Bed Assign Complete 09/26/2023 14:20:54 09/26/2023 14:20:54 09/26/2023 14:20:54 Dr Exam Complete 09/26/2023 14:20:54 09/26/2023 14:22:40 09/26/2023 14:22:40 RN Exam Complete 09/26/2023 14:20:54 09/26/2023 14:36:31 09/26/2023 14:36:31 Registration Request 09/26/2023 14:22:40 Dr Exam Complete 09/26/2023 14:25:45 09/26/2023 14:25:45 09/26/2023 14:25:45 Pending Labs Complete 09/26/2023 14:33:03 09/26/2023 15:28:36 Lab Complete 09/26/2023 14:33:03 09/26/2023 15:18:07 Pending Labs Complete 09/26/2023 14:47:06 09/26/2023 15:14:25 Lab Complete 09/26/2023 14:47:06 09/26/2023 15:14:25 Urine Collect Complete 09/26/2023 14:47:06 09/26/2023 15:14:25 Pending Labs Complete 09/26/2023 14:49:10 09/26/2023 14:49:10 09/26/2023 15:08:44 Lab Complete 09/26/2023 14:49:10 09/26/2023 14:49:10 09/26/2023 15:08:44 Meds Admin Complete 09/26/2023 15:40:51 09/26/2023 15:49:41 CT Complete 09/26/2023 15:41:14 09/26/2023 15:43:43 09/26/2023 16:00:58 US Complete 09/26/2023 16:33:37 09/26/2023 17:10:39 09/26/2023 17:41:30 Pending Labs Complete 09/26/2023 17:10:51 09/26/2023 17:10:51 09/26/2023 17:10:52 Pending Labs Complete 09/26/2023 17:11:08 09/26/2023 17:11:08 09/26/2023 17:11:09 Meds Admin Complete 09/26/2023 17:16:35 09/26/2023 17:48:19 US Complete 09/26/2023 17:39:17 09/26/2023 17:41:56 Discharge Complete 09/26/2023 17:50:49 09/26/2023 18:13:56 09/26/2023 18:13:56 Transfer Complete 09/26/2023 18:13:56 09/26/2023 18:13:56 09/26/2023 18:13:56 ADDRESS: [address] [place] [id number] PHYS DOC NOTES: MEDICAL INFORMATION: Prescriptions Given: New Medications [id number], [address] [place], [place] [id number], [phone] diflunisal (diflunisal 500 mg Tab) 1 Tablets By Mouth every 12 hours. Refills: 0. hyoscyamine (Levsin 0.125 mg SL Tab) 1 Tablets By Mouth 4 times a day for 5 Days. Refills: 0. polyethylene glycol 3350 (Miralax 3350 17 gram packet) 17 Gram By Mouth every day for 7 Days. Refills: 0. Medications to Continue with No Changes Other Medications alprazolam (alprazolam 0.25 mg Tab) budesonide-formotero l (Symbicort 80/4.5 inhalation aerosol with adapter) citalopram (citalopram 20 mg Tab) By Mouth every day. PATIENT EDUCATION INFORMATION: Instructions: Follow up: With: Address: When: [facility] [employer] [address] [address] Business (1) In 3 days 09/29/2023 With: Address: When: [facility], [address] [place] [address] [place] [address] Business (1) In 3 days 09/29/2023 With: Address: When: XXXX NONE , [place] In 3 days DIAGNOSIS: Abdominal pain; Constipation; Ovarian cyst Normal [facility] ED Patient Education Noteon 09-27-2023 ED Patient Education Note Normal [facility] ED Patient Summaryon 024 ED Patient Summary [address] [address] Patient Discharge Instructions Person Information Name: LIVIA NOYOLA Age: 38 Years Arrival Date: 09/26/2023 13:54:18 Discharge Diagnosis: Abdominal pain; Constipation; Ovarian cyst Primary Care Physician: NONE, XXXX Provider Information Primary Provider: Konstantin Penny DO [employer] Buyer:None The exam and treatment you received in the Emergency Department were for an urgent problem and are not intended as complete care. It is important that you follow up with a doctor, nurse practitioner, or physician?s office services assistant for ongoing care. If your symptoms become worse or you do not improve as expected and you are unable to reach your usual health care provider, you should return to the Emergency Department. We are available 24 hours a day. LIVIA NOYOLA has been given the following list of patient education materials, prescriptions and follow-up instructions: Follow-up Instructions: With: Address: When: [employer] [place] [address] [place] [address] Business (1) In 3 days 09/29/2023 With: Address: When: [facility], [address] [place] [address] Jake [place]ugh [place], [place] [id number] Business (1) In 3 days 09/29/2023 With: Address: When: [facility] , [place] In 3 days In the event that this physician does not participate in your insurance network, please consult with your insurance company to find a nearby participating provider. Patient Education Materials: A MESSAGE TO ALL PATIENTS REGARDING OPIOIDS PRESCRIPTION OPIOIDS: WHAT YOU NEED TO KNOW Prescription opioids can be used to help relieve aubelqrw-cj-gutgxe pain and are often prescribed following a [...] the risks of opioids abuse and overdose. (more content not included)... Normal [facility] B hCG Qualon 09-26-2023 Beta HCG ( test) Ql Negative Normal [facility] Comment on above: Order Comment: FER dubois attempting lab work from IV start per Pt request. Phleb on standby if unable to get labs, [email or web address] 09/26/2023 14:42:36 EDT Performed By: #### 2 921189, 0838246, 6617551, 03425678, [id number] #### [facility] [address] [place] [address] CBC w/ Auto Diffon Anisocytosis Ql (Bld) PRESENT Invalid Interpretation Code [facility] Comment on above: Performed By: #### 2 957511, 1083818, 2189053, 82030510, [id number] #### [facility] [address] [place] [address] Basophils/100 WBC (Bld) 0.8 % Normal 0.0-2.0 [facility] Comment on above: Performed By: #### 2 706957, 6010997, 1587489, 23832264, 35849725 #### [facility] [address] [place] [address] Basophils/Leukocytes Auto (Bld) [Pure # fraction] 0.1 E9/L Normal 0.0-0.2 [facility] Comment on above: Performed By: #### 2 762816, 0945280, 7373222, 95689406, 51497356 #### [facility] [address] [place] [address] Eosinophils (Bld) [#/Vol] 0.0 E9/L Normal 0.0-0.5 [facility] Comment on above: Performed By: #### 2 688483, 8095117, 8352059, 69999578, 07758999 #### [facility] [address] [place] [address] Eosinophils/100 WBC (Bld) 0.0 % Normal 0.0-8.0 [facility] Comment on above: Performed By: #### 2 257927, 0887106, 1618291, 02910664, 19197374 #### [facility] [address] [place] [address] Hypochromia Auto Ql (Bld) PRESENT Invalid Interpretation Code [facility] Comment on above: Performed By: #### 2 220142, 2039132, 4622439, 43158928, 70762449 #### [facility] [address] [place] [address] Lymphocytes (Bld) [#/Vol] 1.6 E9/L Normal 1.0-4.0 [facility] Comment on above: Performed By: #### 2 859724, 5084336, 9417303, 42324023, 36379220 #### [facility] [address] [place] [address] Lymphocytes/100 WBC (Bld) 22.7 % Normal 14.0-50.0 [facility] Comment on above: Performed By: #### 2 206593, 3585039, 7893103, 51362334, 00955623 #### [facility] [address] [place] [address] Microcytes Ql (Bld) PRESENT Invalid Interpretation Code [facility] Comment on above: Performed By: #### 2 686475, 8422206, 1376122, 98001028, 92655732 #### [facility] [address] [place] [address] Monocytes (Bld) [#/Vol] 0.3 E9/L Normal 0.2-1.0 [facility] Comment on above: Performed By: #### 2 693845, 0340127, 9137720, 68011530, 55614061 #### [facility] [address] [place] [address] Neutrophils (Bld) [#/Vol] 5.1 E9/L Normal 2.0-7.5 [facility] Comment on above: Performed By: #### 2 873444, 6022158, 8160234, 76545220, 04997116 #### [facility] [address] [place] [address] Neutrophils/100 WBC (Bld) 71.6 % Normal 36.0-75.0 [facility] Comment on above: Performed By: #### 2 422960, 7052018, 7152629, 43778268, 78658319 #### [facility] [address] [place] [address] Erythrocyte distribution width (RBC) [Ratio] 17.8 % High 10.9-14.2 [facility] Comment on above: Performed By: #### 2 192956, 2426520, 2075012, 72462577, 02789733 #### [facility] [address] [place] [address] Hematocrit (Bld) [Volume fraction] 36.2 % Normal 34.0-46.0 [facility] Comment on above: Performed By: #### 2 600895, 8521169, 8494437, 83809000, 53924502 #### [facility] [address] [place] [address] Hemoglobin (Bld) [Mass/Vol] 11.2 g/dL Low 12.0-16.0 [facility] Comment on above: Performed By: #### 2 113382, 3724860, 6080416, 59123508, 31175053 #### [facility] [address] [place] [address] MCH (RBC) [Entitic mass] 23.2 pg Low 27.0-34.0 [facility] Comment on above: Performed By: #### 2 827411, 4607251, 9768170, 43660809, 33617258 #### [facility] [address] [place] [address] MCHC (RBC) [Mass/Vol] 31.0 g/dL Low 31.4-36.0 [facility] Comment on above: Performed By: #### 2 583799, 4717564, 7430488, 92380970, 19772831 #### [facility] [address] [place] [address] MCV (RBC) [Entitic vol] 74.9 fL Low 80.0-100.0 [facility] Comment on above: Performed By: #### 2 128073, 5877470, 7473608, 47436050, 75872205 #### [facility] [address] [place] [address] Platelet mean volume (Bld) [Entitic vol] 7.5 fL Normal 6.4-10.8 [facility] Comment on above: Performed By: #### 2 852639, 5682316, 8713476, 22369500, 79878778 #### [facility] [address] [place] [address] Platelets (Bld) [#/Vol] 461.0 E9/L Normal 150.0-500.0 [facility] Comment on above: Performed By: #### 2 016297, 3167408, 4024357, 62396843, 99694666 #### [facility] [address] [place] [address] RBC (Bld) [#/Vol] 4.8 E12/L Normal 4.3-5.9 [facility] Comment on above: Performed By: #### 2 011079, 4628312, 8786213, 10639191, 08825255 #### [facility] [address] [place] [address] WBC corrected for nucl RBC Auto (Bld) [#/Vol] 7.1 E9/L Normal 4.0-11.0 [facility] Comment on above: Performed By: #### 2 918649, 3489021, 4139475, 45541539, 81880984 #### [facility] [address] [place] [address] CHEMISTRYOrdered By: SYSTEM SYSTEM on 09-26-2023 Amphetamines Screen method >1000 ng/mL Ql (U) NEGATIVE 7 (09/26/23 2:49 PM) Normal NEGATIVE [facility] Comment on above: Interpretive Data: N egative Cutoff: <1000 ng/mL Barbiturates Screen Ql (U) NEGATIVE 8 (09/26/23 2:49 PM) Normal NEGATIVE [facility] Comment on above: Interpretive Data: N egative Cutoff: <200 ng/mL Benzodiazepines Ql (U) NEGATIVE 1 (09/26/23 2:49 PM) Normal NEGATIVE [facility] Comment on above: Interpretive Data: N egative Cutoff: <200 ng/mL Cannabinoids Screen Ql (U) NEGATIVE 6 (09/26/23 2:49 PM) Normal NEGATIVE [facility] Comment on above: Interpretive Data: N egative Cutoff: <50 ng/mL Cocaine Ql (U) NEGATIVE 2 (09/26/23 2:49 PM) Normal NEGATIVE [facility] Comment on above: Interpretive Data: N egative Cutoff: <300 ng/mL Opiates Screen Ql (U) NEGATIVE 4 (09/26/23 2:49 PM) Normal NEGATIVE [facility] Comment on above: Interpretive Data: N egative Cutoff: <300 ng/mL Phencyclidine Screen method >25 ng/mL Ql (U) NEGATIVE 5 (09/26/23 2:49 PM) Normal NEGATIVE [facility] Comment on above: Interpretive Data: N egative Cutoff: <25 ng/mL These drug screen results are to be used for medical (i.e., treatment) purposes only. Unconfirmed drug screening results must not be used for non-medical purposes (e.g., employment testing, legal testing). U Fentanyl NEGATIVE 9 (09/26/23 2:49 PM) Normal NEGATIVE [facility] Comment on above: Interpretive Data: N egative Cutoff: <5 ng/mL These drug screen results are to be used for medical (i.e., treatment) purposes only. Unconfirmed drug screening results must not be used for non-medical purposes (e.g., employment testing, legal testing). Albumin [Mass/Vol] 4.7 g/dL Normal 3.3 - 5.0 gm/dL [facility] Albumin/Globulin [Mass ratio] 1.3 {ratio} Normal 1.1 - 2.2 [facility] ALP [Catalytic activity/Vol] 61 [iU]/d Normal 21 - 98 Int._Unit/L [facility] ALT No additional P-5'-P [Catalytic activity/Vol] 11 [iU]/d Normal 6 - 46 Int._Unit/L [facility] Anion gap [Moles/Vol] 15 mmol/L Normal 6 - 16 mEq/L R [facility] AST [Catalytic activity/Vol] 16 [iU]/d Normal 5 - 43 Int._Unit/L [facility] Bilirubin [Mass/Vol] 0.8 mg/dL Normal 0.0 - 1 .1 mg/dL [facility] Calcium [Mass/Vol] 9.7 mg/dL Normal 8.9 - 11. 1 mg/dL [facility] Chloride [Moles/Vol] 107 mmol/L Normal 101 - 1 11 mmol/L [facility] CO2 [Moles/Vol] 20 mmol/L Low 21 - 31 mmol/L [facility] Creatinine [Mass/Vol] 0.7 mg/dL Normal 0.5 - 1.3 mg/dL [facility] eGFR 114 mL/min/1.73 m2 Normal >=59mL/mi n/1 .73 m2 [facility] Globulin (S) [Mass/Vol] 3.6 g/dL Normal 1.4 - 4.0 gm/dL [facility] Glucose [Mass/Vol] 120 mg/dL Normal 55 - 199 mg/dL [facility] Lipase [Catalytic activity/Vol] 18 U/L Normal 13 - 58 unit/L [facility] Potassium [Moles/Vol] 3.8 mmol/L Normal 3.5 - 5.3 mmol/L [facility] Protein [Mass/Vol] 8.3 g/dL High 6.0 - 7.8 gm/dL [facility] Sodium [Moles/Vol] 138 mmol/L Normal 135 - 145 mmol/L [facility] Urea nitrogen [Mass/Vol] 5 mg/dL Normal 5 - 21 mg/dL [facility] Urea nitrogen/Creatinine [Mass ratio] 7 mg/mg Low 10 - 20 [facility] CMPon 09-26-2023 Albumin [Mass/Vol] 4.7 g/dL Normal 3.3-5.0 [facility] Comment on above: Performed By: #### 2 417099, 0256840, 9941519, 80623723, 79890452 #### [facility] [address] [place] [address] Albumin/Globulin (S) [Mass conc ratio] 1.3 Normal 1.1-2.2 [facility] Comment on above: Performed By: #### 2 142601, 2083994, 5123140, 93218216, 58136187 #### [facility] [address] [place] [address] ALP [Catalytic activity/Vol] 61 Int._Unit/L Normal 21-98 [facility] Comment on above: Performed By: #### 2 827940, 6445360, 7457661, 04112540, 94820765 #### [facility] [address] [place] [address] ALT No additional P-5'-P [Catalytic activity/Vol] 11 Int._Unit/L Normal 6-46 [facility] Comment on above: Performed By: #### 2 718130, 2353160, 4324999, 18205060, 96806057 #### [facility] [address] [place] [address] Anion gap [Moles/Vol] 15 mmol/L Normal 6-16 [facility] Comment on above: Performed By: #### 2 605506, 7786520, 7330250, 97261058, 01902610 #### [facility] [address] [place] [address] AST [Catalytic activity/Vol] 16 Int._Unit/L Normal 5-43 [facility] Comment on above: Performed By: #### 2 268900, 0927460, 4516966, 49065462, 33367514 #### [facility] [address] [place] [address] Bilirubin [Mass/Vol] 0.8 mg/dL Normal 0.0-1.1 [facility] Comment on above: Performed By: #### 2 182734, 2237135, 2531101, 09083365, 64068257 #### [facility] [address] [place] [address] Calcium [Mass/Vol] 9.7 mg/dL Normal 8.9-11.1 [facility] Comment on above: Performed By: #### 2 133774, 6486486, 5581983, 42363929, 70961942 #### [facility] [address] [place] [address] Chloride [Moles/Vol] 107 mmol/L Normal 101-111 [facility] Comment on above: Performed By: #### 2 890699, 4948349, 0249257, 07507482, 06930097 #### [facility] [address] [place] [address] CO2 [Moles/Vol] 20 mmol/L Low 21-31 [facility] Comment on above: Performed By: #### 2 431577, 2029133, 8883114, 45091014, 66135871 #### [facility] [address] [place] [address] Creatinine [Mass/Vol] 0.7 mg/dL Normal 0.5-1.3 [facility] Comment on above: Performed By: #### 2 345361, 7360160, 6698078, 24202428, 64269838 #### [facility] [address] [place] [address] Globulin (S) [Mass/Vol] 3.6 g/dL Normal 1.4-4.0 [facility] Comment on above: Performed By: #### 2 276054, 6381080, 6648434, 46687364, 67457064 #### [facility] [address] [place] [address] Glucose [Mass/Vol] 120 mg/dL Normal 55-199 [facility] Comment on above: Performed By: #### 2 527532, 8499850, 3735080, 01328356, 82389515 #### [facility] [address] [place] [address] Potassium [Moles/Vol] 3.8 mmol/L Normal 3.5-5.3 [facility] Comment on above: Performed By: #### 2 830881, 7750161, 3884675, 93481315, 40891266 #### [facility] [address] [place] [address] Protein [Mass/Vol] 8.3 g/dL High 6.0-7.8 [facility] Comment on above: Performed By: #### 2 765948, 2267941, 9386665, 23989951, 87354611 #### [facility] [address] [place] [address] Sodium [Moles/Vol] 138 mmol/L Normal 135-145 [facility] Comment on above: Performed By: #### 2 856956, 1852429, 6112682, 52029232, 27851541 #### [facility] [address] [place] [address] Urea nitrogen [Mass/Vol] 5 mg/dL Normal 5-21 [facility] Comment on above: Performed By: #### 2 271707, 3401940, 1677170, 03103684, 93164938 #### [facility] [address] [place] [address] Urea nitrogen/Creatinine [Mass ratio] 7 No Units Low 10-20 [facility] Comment on above: Performed By: #### 2 960668, 2630769, 9899284, 90429488, 39197750 #### [facility] [address] [place] [address] CT Abdomen/Pelvis w/ Contras ton 09-26-2023 CT Abdomen/Pelvis w/ Contrast Exam Date/Time: 09/26/2023 16:00 EDT Reason for Exam: Abdominal pain, acute, nonlocalized;Other (please specify) Report IMPRESSION: PROMINENT RIGHT ADNEXAL CYSTIC STRUCTURES, AND SONOGRAPHY IS SUGGESTED FOR FURTHER EVALUATION. PLEASE REFER TO THE COMMENT. CLINICAL HISTORY: Abdominal pain, acute, nonlocalized. COMPARISON: 07/31/2023. COMMENT: Images were obtained following the administration of Intravenous contrast. There are surgical clips at the gallbladder fossa, from prior cholecystectomy. There is no biliary ductal dilatation. The liver, spleen, pancreas, adrenal glands, and kidneys are normal in appearance. The renal collecting systems are not dilated. No retroperitoneal lymphadenopathy is evident. The abdominal aorta is normal in diameter. No aneurysm is noted. Evaluation of bowel is limited. The bowel loops are not dilated, and there is no evidence of bowel obstruction. The appendix is normal. There is some fecal material in the colon and much of the colon is collapsed, limiting evaluation. There is some radiopaque material scattered in the lumen of the colon, with intraluminal radiopaque material most prominent in the sigmoid colon and rectum. Has the patient had a prior study elsewhere with oral contrast, in the interim since the 07/31/2023 study at this hospital? There is no evidence of diverticulitis. No abdominal inflammatory complex nor free air is noted. There is a minimal amount of free fluid in the pelvis. The uterus is anteverted. There are adjacent right adnexal cystic structures, and the largest has a greatest diameter of 4.4 cm. Much smaller bilateral adnexal cystic structures were evident on the prior study. The lumen of the urinary bladder is not fully distended, limiting assessment, but otherwise the urinary bladder is unremarkable. No pelvic lymphadenopathy is noted. Visualized bony structures are unremarkable. All CT scans at this facility use dose modulation, iterative reconstruction, and/or weight based dosing when appropriate to reduce radiation dose to as low as reasonably achievable. Unless otherwise stated, incidental findings identified in this report do not require routine follow-up imaging. Report Ordering Provider: Konstantin Penny FINAL REPORT Dictated: 09/26/2023 4:28 pm Danny Mcclain M.D. Signed (Electronic Signature): 09/26/2023 4:28 pm Signed by: Danny Mcclain M.D. Transcribed by: MILLIE Technologist: ALICIA Technical Comments GFR (mL/min/1/73m2) na Contrast: Isovue 300 Contrast amount in ml's: 100 Normal [facility] Consent for Treatmenton 09-11 Consent for Treatment [id number] #[id number] Normal [facility] Discharge Instructionson Discharge Instructions [id number] [id number] #[id number] Normal [facility] ED Note-Physicianon 09-26-19 ED Note-Physician Basic Information Time Seen: Konstanitn Penny DO 09/26/2023 14:25 Chief Complaint c/o nausea and left abdominal pain radiating to back that started back up yesterday. took bentyl ibuprofen and tramadol around noon with no relief. recent admission to [place] a week ago for intusseption, ovarian cyst, elevated lactic. denies V/D History of Present Illness 38 year old female presents to the emergency department with chief complaint of abdominal pain. patient states this pain started yesterday and has associated nausea without vomiting. Patient states she was admitted 10 days ago to [facility] for intussusception, ovarian cysts, and elevated lactic. She states she was admitted for one day and that she had another CT done that showed resolution of the intussusception. She reports she was discharged home but went back to [facility] yesterday for similar pain. She reports they did an XR of her abdomen with concerns for constipation and gave her toradol, bentyl, and a percocet, none of which helped her pain. She states the pain is worse today than yesterday and that she took ibuprofen and tramadol prior to arrival with no relief. She describes the pain as a ripping pain in her middle abdomen that radiates to her left abdomen. She does have a history of cholecystectomy and multiple ovarian cyst surgeries. She also states she has a history of endometriosis. She denies any fevers, chills, vomiting, bowel problems, vaginal bleeding, urinary s/s, or blood in stools. She denies any further aggravating factors or concerns related to today's visit. Physical Exam Vitals & Measurements T: 37.0 ?C(Oral) HT: 165 cm WT: 81.2 kg BMI: 29.83 Nurses notes and vital signs reviewed and patient is not hypoxic. General: The patient appears well. Patient is resting comfortably on the exam bed. Skin: Warm, dry, no pallor noted. Head: Atraumatic. Neck: No JVD. Eye: Normal conjunctiva. Ears, Nose, Mouth, and Throat: Moist mucous membranes Cardiovascular: Strong distal pulses. Chest wall: Respiratory: Respirations are nonlabored. Lungs clear to auscultation. Back: Normal range of motion, no CVA tenderness. Musculoskeletal: Normal ROM with no gross deformity. Gastrointestinal: Soft and non-tender, non-distended abdomen. pain on palpation to middle lower abdomen and LLQ. No guarding, rigidity, or rebound tenderness. Urological: patient denies Neurological: Awake and alert. No focal deficits. Follows commands. GCS 15. Psychiatric: Cooperative. Medical Decision Making Workup in the ER has been reviewed and noted. We did review workup from [facility] just recently. Risks and benefits of obtaining CT scan were discussed. Ultimately patient did elect to undergo CT scan given that her pain was still out of proportion to findings on exam and workup. CT scan does reveal a ovarian cyst and there was recommendation for ultrasound therefore ultrasound took place. There is good flow to the ovaries however there is large 4.[address] scan also shows some free fluid in the pelvis likely from ruptured ovarian cyst this may explain some of the patient's pain as well. She also has history of endometriosis so certainly that remains in the differential diagnosis. We did refer her to [facility] for follow-up. Patient also was found to have some constipation on CT therefore we talked about dietary and lifestyle modifications and I did prescribe MiraLAX here as well. She is to follow-up in the outpatient setting return to ER symptoms should change or worsen she is comfortable with this plan. I, Dr. Penny had a [id number] interaction with the patient. I personally performed a physical exam and medical decision making. I have verified the documentation by the student as accurately representing the information obtained. Assessment/Plan Abdominal pain (R10.9: Unspecified abdominal pain) Constipation (K59.00: Constipation, unspecified) Ovarian cyst (N83.209: Unspecified ovarian cyst, unspecified side) Orders: acetaminophen-oxycod one, 1 tab(s), Tab, Oral, Once, Stop date 09/26/23 17:16:00 EDT, STAT, Start date 09/26/23 17:16:00 EDT dicyclomine, 20 mg = 2 mL, Injection, IntraMuscular, Once, Stop date 09/26/23 17:16:00 EDT, STAT, Start date 09/26/23 17:16:00 EDT, 09/26/23 17:16:00 EDT diflunisal, 500 mg = 1 tab(s), Oral, q12hr, # 20 tab(s), Refills(s) 0, Pharmacy: [facility]/pharmacy #[id number], 165, cm, 09/26/23 14:18:00 EDT, Height/Length Dosing, 81.2, kg, 09/26/23 14:18:00 EDT, Weight Dosing hyoscyamine, 0.125 mg = 1 tab(s), Oral, QID, X 5 day(s), # 20 tab(s), Refills(s) 0, Pharmacy: [facility]/pharmacy #[id number], 165, cm, 09/26/23 14:18:00 EDT, Height/Length Dosing, 81.2, kg, 09/26/23 14:18:00 EDT, Weight Dosing ketorolac, 30 mg = 1 mL, Injection, IV, Once, Stop date 09/26/23 15:40:00 EDT, STAT, Start date 09/26/23 15:40:00 EDT, 09/26/23 15:40:00 EDT polyethylene glycol 3350, 17 gm, Oral, Daily, X 7 day(s), # 119 gm, Refills(s) 0, Pharmacy: [facility]/pharmacy #[id number], 165, cm, 09/26/23 14:18:00 EDT, (more content not included)... Normal [facility] Comment on above: Result Comment: Elec tronically Signed By: Konstantin Penny DO\.br\Date and Time Signed: 09/26/23 17:52 EDT HEMATOLOGYOrdered By: SYSTEM SYSTEM on 09-26-2023 Anisocytosis Ql (Bld) PRESENT *NA* (09/26/23 2:45 PM) Invalid Interpretation Code Remisol Heme Basophils/100 WBC (Bld) 0.8 % Normal 0.0 - 2.0 % Remisol Heme Basophils/Leukocytes Auto (Bld) [Pure # fraction] 0.1 E9/L Normal 0.0 - 0.2 E9/L Remisol Heme Eosinophils (Bld) [#/Vol] 0.0 E9/L Normal 0.0 - 0.5 E9/L Remisol Heme Eosinophils/100 WBC (Bld) 0.0 % Normal 0.0 - 8.0 % Remisol Heme Erythrocyte distribution width (RBC) [Ratio] 17.8 % High 10.9 - 14.2 % Remisol Heme Hematocrit (Bld) [Volume fraction] 36.2 % Normal 34.0 - 46.0 % Remisol Heme Hemoglobin (Bld) [Mass/Vol] 11.2 g/dL Low 12.0 - 16.0 gm/dL Remisol Heme Hypochromia Auto Ql (Bld) PRESENT *NA* (09/26/23 2:45 PM) Invalid Interpretation Code Remisol Heme Lymphocytes (Bld) [#/Vol] 1.6 E9/L Normal 1.0 - 4.0 E9/L Remisol Heme Lymphocytes/100 WBC (Bld) 22.7 % Normal 14.0 - 50.0 % Remisol Heme MCH (RBC) [Entitic mass] 23.2 pg Low 27.0 - 34.0 pg Remisol Heme MCHC (RBC) [Mass/Vol] 31.0 g/dL Low 31.4 - 36.0 gm/dL Remisol Heme MCV (RBC) [Entitic vol] 74.9 fL Low 80.0 - 100.0 fL Remisol Heme Microcytes Ql (Bld) PRESENT *NA* (09/26/23 2:45 PM) Invalid Interpretation Code Remisol Heme Monocytes (Bld) [#/Vol] 0.3 E9/L Normal 0.2 - 1.0 E9/L [facility] Heme Monocytes/100 WBC (Bld) 4.9 % Normal 4.0 - 14.0 % [facility] Heme Neutrophils (Bld) [#/Vol] 5.1 E9/L Normal 2.0 - 7.5 E9/L [facility] Neutrophils/100 WBC (Bld) 71.6 % Normal 36.0 - 75.0 % Rem[facility] Heme Platelet mean volume (Bld) [Entitic vol] 7.5 fL Normal 6.4 - 10.8 fL [facility] Heme Platelets (Bld) [#/Vol] 461.0 E9/L Normal 150. 0 - 500.0 E9/L [facility]e RBC (Bld) [#/Vol] 4.8 E12/L Normal 4.3 - 5.9 E12/L [facility] WBC corrected for nucl RBC Auto (Bld) [#/Vol] 7.1 E9/L Normal 4.0 - 11.0 E9/L [facility] Lipase Levelon 09-26-2023 Lipase [Catalytic activity/Vol] 18 U/L Normal 13-58 [facility] Comment on above: Performed By: #### 2 [id number], [id number], 8388619, [id number], [id number] #### [facility] [address] [place] [address] Outside Recordson 09-26-2023 Outside Records [id number] Normal [facility] SEROLOGYOrdered By: Nohemi Taylor on 09-26-2023 Beta HCG ( test) Ql Negative (09/26/23 2:45 PM) Normal [facility] Man Sero U Drug Screenon 09-26-2023 Amphetamines Screen method >1000 ng/mL Ql (U) Negative Normal NEGATIVE [facility] Comment on above: Result Comment: Nega tive Cutoff: <1000 ng/mL Performed By: #### 2 285430, 9060183, 6312150, [id number], [id number] #### [facility] [address] [place] [address] Barbiturates Screen Ql (U) Negative Normal NEGATIVE [facility] Comment on above: Result Comment: Nega tive Cutoff: <200 ng/mL Performed By: #### 2 579520, 3892141, 5962122, [id number], [id number] #### [facility] [address] [place] [address] Benzodiazepines Ql (U) Negative Normal NEGATIVE [facility] Comment on above: Result Comment: Nega tive Cutoff: <200 ng/mL Performed By: #### 2 786580, 1349829, 8201626, [id number], [id number] #### [facility] [address] [place] [address] Cannabinoids Screen Ql (U) Negative Normal NEGATIVE [facility] Comment on above: Result Comment: Nega tive Cutoff: <50 ng/mL Performed By: #### 2 969166, 1111932, 7646216, 63899210, 85065205 #### [facility] [address] [place] [address] Cocaine Ql (U) Negative Normal NEGATIVE [facility] Comment on above: Result Comment: Nega tive Cutoff: <300 ng/mL Performed By: #### 2 438767, 6315485, 2484543, 58123641, [id number] #### [facility] [address] [place] [address] Opiates Screen Ql (U) Negative Normal NEGATIVE [facility] Comment on above: Result Comment: Nega tive Cutoff: <300 ng/mL Performed By: #### 2 070411, 0955818, 0185174, 21644111, 58118391 #### [facility] [address] [place] [address] Phencyclidine Screen method >25 ng/mL Ql (U) Negative Normal NEGATIVE [facility] Comment on above: Result Comment: Nega tive Cutoff: <25 ng/mL These drug screen results are to be used for medical (i.e., treatment) purposes only. Unconfirmed drug screening results must not be used for non-medical purposes (e.g., employment testing, legal testing). Performed By: #### 2 818133, 1479382, 3267339, 61404925, [id number] #### [facility] [address] [place] [address] U Fentanyl Negative Normal NEGATIVE [facility] Comment on above: Result Comment: Nega tive Cutoff: <5 ng/mL These drug screen results are to be used for medical (i.e., treatment) purposes only. Unconfirmed drug screening results must not be used for non-medical purposes (e.g., employment testing, legal testing). Performed By: #### 2 023852, 4657158, 6643944, 16894880, [id number] #### [facility] [address] [place] [address] UA with Cult Rflxon 09-26-19 24 Bilirubin Ql (U) Negative Normal Negative [facility] Comment on above: Performed By: #### 2 717501, 6765094, 1065644, 29046197, 62176102 #### [facility] [address] [place] [address] Clarity (U) Clear Normal Clear [facility] Comment on above: Performed By: #### 2 350244, 0796820, 7528918, 88983653, [id number] #### [facility] [address] [place] [address] Color (U) Colorless Abnormal Yellow [facility] Comment on above: Result Comment: Micr oscopic readings are only performed on those samples that meet specific criteria set forth by [facility]. Performed By: #### 2 798665, 2353695, 8454510, 13057213, [id number] #### [facility] [address] [place] [address] Glucose Ql (U) Negative Normal Negative [facility] Comment on above: Performed By: #### 2 961691, 3936776, 5487800, 95825488, [id number] #### [facility] [address] [place] [address]51 Hemoglobin Auto test strip (U) [Mass/Vol] Negative Normal Negative [facility] Comment on above: Performed By: #### 2 365086, 5610800, 1541756, 64897766, 35608876 #### [facility] [address] [place] [address] Ketones Auto test strip Ql (U) Negative Normal Negative [facility] Comment on above: Performed By: #### 2 496775, 0506083, 0652253, 14254757, 99978969 #### [facility] [address] [place] [address] Leukocyte esterase Auto test strip Ql (U) Negative Normal Negative [facility] Comment on above: Performed By: #### 2 731167, 2559685, 4216819, 27758469, 12935841 #### [facility] [address] [place] [address] Nitrite Auto test strip Ql (U) Negative Normal Negative [facility] Comment on above: Performed By: #### 2 062140, 2452255, 0754033, 23764643, [id number] #### [facility] [address] [place] [address] pH (U) 6.0 [pH] Invalid Interpretation Code 5.0-9.0 [facility] Comment on above: Performed By: #### 2 648779, 7980165, 4513518, 59990425, [id number] #### [facility] [address] [place] [address] Protein Ql (U) Negative Normal Negative [facility] Comment on above: Performed By: #### 2 466403, 7907601, 0670051, 43855001, [id number] #### [facility] [address] [place] [address] Specific gravity (U) [Rel density] 1.004 Invalid Interpretation Code 1.005-1.030 [facility] Comment on above: Performed By: #### 2 765512, 6629857, 5256183, 19823593, 10525656 #### [facility] [address] [place] [address] Urobilinogen (U) [Mass/Vol] Negative Normal Negative [facility] Comment on above: Performed By: #### 2 879124, 6326028, 0300859, 46163772, 84687648 #### [facility] [address] [place] [address] Type of Urine collection method Clean Catch Normal [facility] Comment on above: Performed By: #### 2 722548, 8415577, 5427924, 85935942, 52297709 #### [facility] [address] [place] [address] URINALYSISOrdered By: SYSTEM SYSTEM on 09-26-2023 Bilirubin Ql (U) Negative Normal Negativemg/ d L [facility] UA Auto SS Clarity (U) Clear (09/26/23 2:49 PM) Normal Clear [facility] UA Auto SS Color (U) Colorless 3 *ABN* (09/26/23 2:49 PM) Invalid Interpretation Code Yellow [facility] UA Auto SS Comment on above: Interpretive Data: M icroscopic readings are only performed on those samples that meet specific criteria set forth by [facility]. Glucose Ql (U) Negative Normal Negativemg/d L [facility] UA Auto SS Hemoglobin Auto test strip (U) [Mass/Vol] Negative Normal Negativemg/d L [facility] UA Auto SS Ketones Auto test strip Ql (U) Negative Normal Negativemg/d L [facility] UA Auto SS Leukocyte esterase Auto test strip Ql (U) Negative Normal NegativeLeu/ uL [facility] UA Auto SS Nitrite Auto test strip Ql (U) Negative Normal Negativemg/d L [facility] UA Auto SS pH (U) 6.0 *NA* (09/26/23 2:49 PM) Invalid Interpretation Code 5.0 - 9.0 [facility] UA Auto SS Protein Ql (U) Negative Normal Negativemg/d L [facility] UA Auto SS Specific gravity (U) [Rel density] 1.004 *NA* (09/26/23 2:49 PM) Invalid Interpretation Code 1.005 - 1.030 [facility] UA Auto SS Urobilinogen (U) [Mass/Vol] Negative Normal Negativemg/d L [facility] UA Auto SS URINALYSISOrdered By: Konstantin dillard on 09-26-2023 UA Spec Desc Clean Catch (09/26/23 2:49 PM) Normal [facility] UA Auto SS US Pelvis Non-OB Completeon 09-26-2023 US Pelvis Non-OB Complete Exam Date/Time: 09/26/2023 17:41 EDT Reason for Exam: Pelvic pain Report IMPRESSION: BLOOD FLOW IS IDENTIFIED TO BOTH OVARIES. MULTIPLE CYSTS VERSUS 5.5 CM HEMORRHAGIC CYST OF THE RIGHT OVARY. FOLLOW-UP PELVIC ULTRASOUND IN 1-2 MENSTRUAL CYCLES IS RECOMMENDED TO ENSURE RESOLUTION. CLINICAL HISTORY: Pelvic pain. COMPARISON: CT abdomen pelvis 09/26/2023 COMMENT: Transabdominal images were obtained. The uterus measurements and an estimated volume are: Uterus Length: 9.1 cm Uterus Width: 4.5 cm Uterus Height: 4.0 cm Uterus Volume: 85.5 cm3 Endometrium Thickness: 1.2 cm Normal sonographic appearance of the uterus. The right ovary measurements and an estimated volume are: Right Ovary Length: 6.5 cm Right Ovary Width: 4.8 cm Right Ovary Height: 4.0 cm Right Ovary Volume: 65.1 cm3 The left ovary measurements and an estimated volume are: Left Ovary Length: 2.7 cm Left Ovary Width: 2.3 cm Left Ovary Height: 1.0 cm Left Ovary Volume: 3.3 cm3 Multiple cysts versus 5.5 cm cyst with septations of the right ovary. Normal appearance of the left ovary. Blood flow is identified to both ovaries. No free fluid within the pelvis. Report Ordering Provider: Konstantin Penny FINAL REPORT Dictated: 09/26/2023 5:53 pm Chad Mo DO Signed (Electronic Signature): 09/26/2023 5:53 pm Signed by: Chad Mo DO Transcribed by: MILLIE Technologist: HAILEY Technical Comments Transabdominal Ultrasound Performed Transvaginal Ultrasound Performed Uterus Position Anteverted Normal [facility] US Transvaginal Non-OBon US Transvaginal Non-OB Exam Date/Time: 09/26/2023 17:41 EDT Reason for Exam: Pelvic pain Report Please see ultrasound pelvis non-OB complete report Ordering Provider: Konstantin Penny FINAL REPORT Dictated: 09/26/2023 5:53 pm Chad Mo DO Signed (Electronic Signature): 09/26/2023 5:53 pm Signed by: Chad Mo DO Transcribed by: MILLIE Technologist: HAILEY Miller [facility] eGFRon 09-26-2023 eGFR 114 mL/min/1.73 m2 Normal >=59 [facility] Comment on above: Order Comment: Order added by Discern Expert. Performed By: #### 2 805178, 1991272, 6583556, [id number], [id number] #### [facility] [address] [place] [address] CBC With Platelet and Differ entialon 09-06-2023 Basophils (Bld) [#/Vol] 0.1 10*3/uL Normal 0.0-0.2 [facility] Comment on above: Performed By: #### C BCWD #### [facility] [address] [place] [address] Basophils/100 WBC (Bld) 0.6 % Normal [facility] Comment on above: Performed By: #### C BCWD #### [facility] [address] [place] [address] Eosinophils (Bld) [#/Vol] 0.1 10*3/uL Normal 0.0-0.7 [facility] Comment on above: Performed By: #### C BCWD #### [facility] [address] [place] [address] Eosinophils/100 WBC (Bld) 0.6 % Normal [facility] Comment on above: Performed By: #### C BCWD #### [facility] [address] [place] [address] Erythrocyte distribution width (RBC) [Ratio] 15.9 % Critically high 11.5-14.5 [facility] Comment on above: Performed By: #### C BCWD #### [facility] [address] [place] [address] Hematocrit (Bld) [Volume fraction] 34.5 % Low 37.0-47.0 [facility] Comment on above: Performed By: #### C BCWD #### [facility] [address] [place] [address] Hemoglobin (Bld) [Mass/Vol] 10.1 g/dL Low 12.0-16.0 [facility] Comment on above: Performed By: #### C BCWD #### [facility] [address] [place] [address] Lymphocytes (Bld) [#/Vol] 4.4 10*3/uL Normal 1.0-4.8 [facility] Comment on above: Performed By: #### C BCWD #### [facility] [address] [place] [address] Lymphocytes/100 WBC (Bld) 54.2 % Normal [facility] Comment on above: Performed By: #### C BCWD #### [facility] [address] [place] [address] MCH (RBC) [Entitic mass] 22.9 pg Low 27.0-31.3 [facility] Comment on above: Performed By: #### C BCWD #### [facility] [address] [place] [address] MCHC 29.3 % Low 33.0-37.0 [facility] Comment on above: Performed By: #### C BCWD #### [facility] [address] [place] [address] MCV (RBC) [Entitic vol] 78.2 fL Low 79.4-94.8 [facility] Comment on above: Performed By: #### C BCWD #### [facility] [address] [place] [address] Monocytes (Bld) [#/Vol] 0.5 10*3/uL Normal 0.2-0.8 [facility] Comment on above: Performed By: #### C BCWD #### [facility] [address] [place] [address] Monocytes/100 WBC (Bld) 6.5 % Normal [facility] Comment on above: Performed By: #### C BCWD #### [facility] [address] [place] [address] Neutrophils (Bld) [#/Vol] 3.1 10*3/uL Normal 1.4-6.5 [facility] Comment on above: Performed By: #### C BCWD #### [facility] [address] [place] [address] Neutrophils/100 WBC (Bld) 37.9 % Normal [facility] Comment on above: Performed By: #### C BCWD #### [facility] [address] [place] [address] Platelets (Bld) [#/Vol] 482 10*3/uL Critically high 130-40 0 [facility] Comment on above: Performed By: #### C BCWD #### [facility] [address] [place] [address] RBC (Bld) [#/Vol] 4.41 10*6/uL Normal 4.20-5.40 [facility] Comment on above: Performed By: #### C BCWD #### [facility] [address] [place] [address] WBC (Bld) [#/Vol] 8.1 10*3/uL Normal 4.8-10.8 [facility] Comment on above: Performed By: #### C BCWD #### [facility] [address] [place] [address] Comprehensive Metabolic Pane rey 09-06-2023 Albumin [Mass/Vol] 4.4 g/dL Normal 3.5-4.6 [facility] Comment on above: Performed By: #### C MP #### [facility] [address] [place] [address] ALP [Catalytic activity/Vol] 72 U/L Normal 40-130 [facility] Comment on above: Performed By: #### C MP #### [facility] [address] [place] [address] ALT [Catalytic activity/Vol] 15 U/L Normal 0-33 [facility] Comment on above: Performed By: #### C MP #### [facility] [address] [place] [address] Anion gap [Moles/Vol] 11 mmol/L Normal 9-15 [facility] Comment on above: Performed By: #### C MP #### [facility] [address] [place] [address] AST [Catalytic activity/Vol] 18 U/L Normal 0-35 [facility] Comment on above: Performed By: #### C MP #### [facility] [address] [place] [address] Bilirubin [Mass/Vol] 0.4 mg/dL Normal 0.2-0.7 [facility] Comment on above: Performed By: #### C MP #### [facility] [address] [place] [address] Calcium [Mass/Vol] 9.5 mg/dL Normal 8.5-9.9 [facility] Comment on above: Performed By: #### C MP #### [facility] [address] [place] [address] Chloride [Moles/Vol] 102 mmol/L Normal 95-107 [facility] Comment on above: Performed By: #### C MP #### [facility] [address] [place] [address] CO2 [Moles/Vol] 24 mmol/L Normal 20-31 [facility] Comment on above: Performed By: #### C MP #### [facility] [address] [place] [address] Creatinine [Mass/Vol] 0.59 mg/dL Normal 0.50-0.90 [facility] Comment on above: Performed By: #### C MP #### [facility] [address] [place] [address] GFR >90.0 Normal >60 [facility] Comment on above: Result Comment: Pedi atric calculator link https://www.kidney.org/professionals/kdoqi/gfr_[email or web address] Effective Mar 15, [...] secretion. Performed By: #### C MP #### [facility] [place] [address] [place] [address] Globulin (S) [Mass/Vol] 3.5 g/dL Normal 2.3-3.5 M [facility] Comment on above: Performed By: #### C MP #### [facility] [place] [address] [place] [address] Glucose [Mass/Vol] 98 mg/dL Normal 70-99 [facility] [place] Comment on above: Performed By: #### C MP #### [facility] [place] [address] [place] [address] Potassium [Moles/Vol] 3.2 mmol/L Low 3.4-4.9 [facility] Comment on above: Performed By: #### C MP #### [facility] [place] [address] [place] [address] Protein [Mass/Vol] 7.9 g/dL Normal 6.3-8.0 [facility] [place] Comment on above: Performed By: #### C MP #### [facility] [place] [address] [place] [address] Sodium [Moles/Vol] 137 mmol/L Normal 135-144 [facility] [place] Comment on above: Performed By: #### C MP #### [facility] [place] [address] [place] [address] Urea nitrogen [Mass/Vol] 4 mg/dL Low 6-20 [facility] [place] Comment on above: Performed By: #### C MP #### [facility] [place] [address] [place] [address] US NON OB TRANSVAGINALon US NON OB [...] Jessy Campos MD 09/06/23 Final result Normal [facility] [place] US PELVIS COMPLETEon 024 US PELVIS COMPLETE [...] Jessy Campos MD 09/06/23 Final result Normal [facility] [place] Urinalysis, reflex to cultur silvino 09-06-2023 Urine Reflexed to Culture Not Indicated Normal [facility] [place] Comment on above: Performed By: #### U AR #### [facility] [place] [address] [facility] [address] Bilirubin Ql (U) Negative Normal Negative [facility] [place] Comment on above: Performed By: #### U AR #### [facility] [place] [address] [facility] [address] Clarity (U) Clear Normal Clear [facility] [place] Comment on above: Performed By: #### U AR #### [facility] [place] [address] [place] [address] Color (U) Yellow Normal Straw/Simpson [facility] [place] Comment on above: Performed By: #### U AR #### [facility] [place] [address] [place] [address] Glucose Ql (U) >=1000 Abnormal Negative [facility] [place] Comment on above: Performed By: #### U AR #### [facility] [place] [address] [place] [address] Hemoglobin Ql (U) TRACE Abnormal Negative [facility] [place] Comment on above: Performed By: #### U AR #### [facility] [place] [address] [place] [address] Ketones Ql (U) >=80 Abnormal Negative [facility] [place] Comment on above: Performed By: #### U AR #### [facility] [place] [address] [place] [address] Leukocyte esterase Test strip Ql (U) Negative Normal Negative [facility] [place] Comment on above: Performed By: #### U AR #### [facility] [place] [address] [place] [address] Nitrite Ql (U) Negative Normal Negative [facility] [place] Comment on above: Performed By: #### U AR #### [facility] [place] [address] [place] [address] pH (U) 5.0 [pH] Normal 5.0-9.0 [facility] [place] Comment on above: Performed By: #### U AR #### [facility] [place] [address] [place] [address] Protein Ql (U) TRACE Abnormal Negative [facility] [place] Comment on above: Performed By: #### U AR #### [facility] [place] [address] [place] [address] Specific gravity (U) [Rel density] 1.025 Normal 1.005-1.03 [facility] [place] Comment on above: Performed By: #### U AR #### [facility] [place] [address] [place] [address] Urobilinogen Qn (U) 0.2 {Ivone'U}/dL Normal < 2.0 [facility] [place] Comment on above: Performed By: #### U AR #### [facility] [place] [address] [place] [address] Urine Microscopicon 09-06-19 24 Bacteria LM.HPF (Urine sed) [#/Area] Negative Normal Negative [facility] [place] Comment on above: Performed By: #### U ARELIS #### [facility] [place] [address] [place] [address] Urine Epithelial Cells Auto 0-2 Normal 0-5 [facility] [place] Comment on above: Performed By: #### U ARELIS #### [facility] [place] [address] [place] [address] Urine Hyaline Casts Auto 0-1 Normal 0-5 [facility] [place] Comment on above: Performed By: #### U ARELIS #### [facility] [place] [address] [place] [address] Urine RBC Auto 3-5 Abnormal 0-5 [facility] [place] Comment on above: Performed By: #### U ARELIS #### [facility] [place] [address] [place] [address] Urine WBC Auto 0-2 Normal 0-5 [facility] [place] Comment on above: Performed By: #### U ARELIS #### [facility] [place] [address] [place] [address] ED Note-Physicianon 08-01-19 24 ED Note-Physician Basic [...] endometritis for which she follows with a CYLINDER WORKER at the [facility]. Review of Systems A 10 point review [...] for discharge home and follow-up with her CYLINDER WORKER. Short course of pain medication as prescribed after an OARRS review for this patient. Return precautions were discussed. All questions were answered. The patient was discharged home for outpatient follow-up for her acute on chronic pain. Assessment/Plan Abdominal pain, acute (R10.9: Unspecified abdominal pain) Ordered: acetaminophen-oxycod one, 1 tab(s), Oral, q6hr Pain 8-10 for 3 day(s), 12 tab(s), Refill(s) 0, [facility]/pharmacy #[id number], 165.1, cm, 07/31/23 15:42:00 EST, Height/Length [...] Discharge D (more content not included)... Normal [facility] Comment on above: Result Comment: Elec tronically Signed By: Jignesh Dumont DO\.br\Date and Time Signed: 08/01/23 09:21 EST B hCG Qualon 07-31-2023 Beta HCG ( test) Ql Negative Normal [facility] Comment on above: Performed By: #### 2 075639, 1141622, 6275425, 98812464, 35770573 #### [facility] [address] [place] [address] BMPon 07-31-2023 Anion gap [Moles/Vol] 15 mmol/L Normal 6-16 [facility] Comment on above: Performed By: #### 2 751973, 0725031, 2810132, 39721638, 82130958 #### [facility] [address] [place] [address] BUN/Creat Ratio 4 No Units Low 10-20 [facility] Comment on above: Performed By: #### 2 252985, 0059107, 7223763, 56446547, 50797505 #### [facility] [address] [place] [address] Calcium [Mass/Vol] 9.6 mg/dL Normal 8.9-11.1 [facility] Comment on above: Performed By: #### 2 984729, 9185934, 0977084, 47620999, 32172581 #### [facility] [address] [place] [address] Chloride [Moles/Vol] 106 mmol/L Normal 101-111 [facility] Comment on above: Performed By: #### 2 938494, 7772838, 9252346, 36653100, 59454183 #### [facility] [address] [place] [address] CO2 [Moles/Vol] 21 mmol/L Normal 21-31 [facility] Comment on above: Performed By: #### 2 153443, 0720922, 1053501, 59649008, 48873235 #### [facility] [address] [place] [address] Creatinine [Mass/Vol] 0.9 mg/dL Normal 0.5-1.3 [facility] Comment on above: Performed By: #### 2 104365, 9317277, 0810956, 91083838, 17828048 #### [facility] [address] [place] [address] Glucose [Mass/Vol] 109 mg/dL Normal 55-199 [facility] Comment on above: Performed By: #### 2 030317, 8858961, 0678226, 72818613, 23575768 #### [facility] [address] [place] [address] Potassium [Moles/Vol] 3.6 mmol/L Normal 3.5-5.3 [facility] Comment on above: Performed By: #### 2 716707, 2216784, 3968450, 23612395, 08178738 #### [facility] [address] [place] [address] Sodium [Moles/Vol] 138 mmol/L Normal 135-145 [facility] Comment on above: Performed By: #### 2 979441, 9184764, 0300448, 22198758, 73994923 #### [facility] [address] [place] [address] Urea nitrogen [Mass/Vol] mg/dL Low 5-21 [facility] Comment on above: Performed By: #### 2 136251, 5672276, 2960203, 83083130, 01599323 #### [facility] [address] [place] [address] CBC w/ Auto Diffon 4 Anisocytosis Ql (Bld) PRESENT Invalid Interpretation Code [facility] Comment on above: Performed By: #### 2 965643, 2619350, 1798163, 45675675, 80601717 #### [facility] [address] [place] [address] Microcyte PRESENT Invalid Interpretation Code [facility] Comment on above: Performed By: #### 2 429438, 3114661, 6979281, 56799779, 35808413 #### [facility] [address] [place] [address] RBC morphology finding Nom (Bld) SEE MORPHOLOGY Invalid Interpretation Code [facility] Comment on above: Performed By: #### 2 925598, 6584405, 3379986, 91538321, 26229202 #### [facility] [address] [place] [address] Basophil Absolute 0.1 E9/L Normal 0.0-0.2 [facility] Comment on above: Performed By: #### 2 157857, 0658246, 7250758, 52244255, 05192124 #### [facility] [address] [place] [address] Basophils/100 WBC (Bld) 1.1 % Normal 0.0-2.0 [facility] Comment on above: Performed By: #### 2 019477, 3325860, 2251942, 14980499, 67210526 #### [facility] [address] [place] [address] Eos Absolute 0.0 E9/L Normal 0.0-0.5 [facility] Comment on above: Performed By: #### 2 241612, 3753950, 7964458, 16023247, 51045464 #### [facility] [address] [place] [address] Eosinophils/100 WBC (Bld) 0.2 % Normal 0.0-8.0 [facility] Comment on above: Performed By: #### 2 729327, 8374098, 3321645, 70227124, 58639226 #### [facility] [address] [place] [address] Erythrocyte distribution width (RBC) [Ratio] 16.5 % High 10.9-14.2 [facility] Comment on above: Performed By: #### 2 063104, 9415811, 6268909, 90886241, 03718806 #### [facility] [address] [place] [address] Hematocrit (Bld) [Volume fraction] 36.0 % Normal 34.0-46.0 [facility] Comment on above: Performed By: #### 2 527091, 7989561, 3440732, 03679822, 46515165 #### [facility] [address] [place] [address] Hemoglobin (Bld) [Mass/Vol] 11.4 g/dL Low 12.0-16.0 [facility] Comment on above: Performed By: #### 2 016577, 9719709, 1535614, 66891730, 43948456 #### [facility] [address] [place] [address] Lymph Absolute 2.2 E9/L Normal 1.0-4.0 [facility] Comment on above: Performed By: #### 2 482127, 7790078, 9995796, 84165001, 42180293 #### [facility] [address] [place] [address] Lymphocytes/100 WBC (Bld) 25.3 % Normal 14.0-50.0 [facility] Comment on above: Performed By: #### 2 145031, 1311572, 8396991, 99849820, 36300415 #### [facility] [address] [place] [address] MCH (RBC) [Entitic mass] 24.0 pg Low 27.0-34.0 [facility] Comment on above: Performed By: #### 2 999241, 2304062, 2721500, 73408986, 44728949 #### [facility] [address] [place] [address] MCHC (RBC) [Mass/Vol] 31.9 g/dL Normal 31.4-36.0 [facility] Comment on above: Performed By: #### 2 540448, 8766613, 8889514, 55803406, 87135931 #### [facility] [address] [place] [address] MCV (RBC) [Entitic vol] 75.2 fL Low 80.0-100.0 [facility] Comment on above: Performed By: #### 2 456388, 7778368, 0114092, 94747428, 68666514 #### [facility] [address] [place] [address] [place] Absolute 0.5 E9/L Normal 0.2-1.0 [facility] Comment on above: Performed By: #### 2 763962, 8331976, 4594080, 22829307, 58381545 #### [facility] [address] [place] [address] Monocytes/100 WBC (Bld) 5.4 % Normal 4.0-14.0 [facility] Comment on above: Performed By: #### 2 730663, 1045733, 2766731, 39422239, 62005414 #### [facility] [address] [place] [address] Neutro Absolute 5.9 E9/L Normal 2.0-7.5 [facility] Comment on above: Performed By: #### 2 391995, 7136313, 0628871, 11137187, 48455446 #### [facility] [address] [place] [address] Neutro Auto 68.0 % Normal 36.0-75.0 [facility] Comment on above: Performed By: #### 2 298905, 5217074, 8677390, 30516236, 86687844 #### [facility] [address] [place] [address] Platelet 612.0 E9/L High 150.0-500.0 [facility] Comment on above: Performed By: #### 2 180191, 8565884, 8979877, 10339609, 22595226 #### [facility] [address] [place] [address] Platelet mean volume (Bld) [Entitic vol] 7.4 fL Normal 6.4-10.8 [facility] Comment on above: Performed By: #### 2 954633, 3663647, 8818964, 69639569, 37241575 #### [facility] [address] [place] [address] RBC 4.7 E12/L Normal 4.3-5.9 [facility] Comment on above: Performed By: #### 2 673425, 3191813, 4274214, 09647094, 78231068 #### [facility] [address] [place] [address] WBC 8.6 E9/L Normal 4.0-11.0 [facility] Comment on above: Performed By: #### 2 331468, 9884822, 6623055, 37274391, 40081208 #### [facility] [address] [place] [address] CHEMISTRYOrdered By: SYSTEM SYSTEM on 07-31-2023 Albumin [...] Oral contrast amount in ml's: 0 Normal [facility] Discharge Instructionson Discharge Instructions [id number] [id number] #1.00TIFF Normal [facility] ED Clinical Summaryon 2023 ED Clinical Summary [address] [address] ED Clinical Summary Person Information Name: LIVIA NOYOLA/Michelle Age: 38 Years : 1985 Sex: Female Language: Ugandan PCP: NONE, XXXX Marital Status: Visit Id: [...] 18:03:59 07/31/2023 18:03:59 07/31/2023 18:03:59 ADDRESS: [address] [place] [id number] PHYS DOC NOTES: MEDICAL INFORMATION: Prescriptions Given: New Medications [facility]/pharmacy #[id number], [address], [place] [id number], [phone] acetaminophen-oxycod one (Percocet 5 mg-325 mg oral [...] up: With: Address: When: Follow-up with your CYLINDER WORKER at [facility] In 3 days 08/03/2023 Comments: Call the [...] worsening symptoms. DIAGNOSIS: Abdominal pain, acute Normal [facility] ED Patient Education Noteon 07-31-2023 ED Patient [...] these instructions at home: Medicines ? Take esfa-ovg-tdaipys and prescription medicines only as told by [...] your condition for any changes. ? Take vmpf-wec-jjudtin and prescription medicines only as told by [...] provider. Document Revised: 07/18/2020 Document Reviewed: 10/08/2019 [employer] Patient Education ? 2022 [employer] Normal [facility] ED Patient Summaryon 024 ED Patient Summary [address] [address] Patient Discharge Instructions Person Information Name: LIVIA NOYOLA Age: 38 Years Arrival Date: 07/31/2023 15:33:06 Discharge Diagnosis: Abdominal pain, acute Primary Care Physician: NONE, XXXX Provider Information Primary Provider: Jignesh Dumont DO Advanced Ore Buyer:None The exam and treatment you received in the Emergency Department were for an urgent problem and are not intended as complete care. It is important that you follow up with a doctor, nurse practitioner, or physician?s office services assistant for ongoing care. If your symptoms [...] Instructions: With: Address: When: Follow-up with your CYLINDER WORKER at [facility] In 3 days 08/03/2023 Comments: Call the [...] opioids can be used to help relieve zgbwpzjo-ge-qwpmrj pain and are often prescribed following a [...] and al (more content not included)... Normal [facility] HEMATOLOGYOrdered By: Sloane Mazariegos on 07-31-2023 Anisocytosis [...] Low 80.0 - 100.0 fL Remisol Heme Shelby Absolute 0.5 E9/L Normal 0.2 - 1.0 [...] 07-31-2023 Albumin [Mass/Vol] 4.6 g/dL Normal 3.3-5.0 [facility] Comment on above: Performed By: #### 2 817299, 2672317, 9324635, 70440956, 44055036 #### [facility] [address] [place] [address] Albumin/Globulin [Mass ratio] 1.4 {ratio} Normal 1.1-2.2 [facility] Comment on above: Performed By: #### 2 506831, 7840676, 4197448, 80984917, 79079749 #### [facility] [address] [place] [address] Alk Phos 73 Int._Unit/L Normal 21-98 [facility] Comment on above: Performed By: #### 2 548708, 4789418, 2229108, 12848676, 67993067 #### [facility] [address] [place] [address] ALT 10 Int._Unit/L Normal 6-46 [facility] Comment on above: Performed By: #### 2 955033, 0043392, 8144588, 74551168, 37940640 #### [facility] [address] [place] [address] AST 11 Int._Unit/L Normal 5-43 [facility] Comment on above: Performed By: #### 2 828630, 9931235, 0189050, 25737606, 38655210 #### [facility] [address] [place] [address] Bili Direct 0.1 mg/dL Normal 0.0-0.4 [facility] Comment on above: Performed By: #### 2 578337, 8509614, 9478035, 36795687, 84987262 #### [facility] [address] [place] [address] Bili Indirect 0.4 mg/dL Normal 0.1-0.9 [facility] Comment on above: Performed By: #### 2 148855, 4598944, 7752925, 45361166, 56405816 #### [facility] [address] [place] [address] Bili Total 0.5 mg/dL Normal 0.0-1.1 [facility] Comment on above: Performed By: #### 2 170982, 7886528, 6646498, 50879737, 29633254 #### [facility] [address] [place] [address] Globulin (S) [Mass/Vol] 3.3 g/dL Normal 1.4-4.0 [facility] Comment on above: Performed By: #### 2 071570, 7071192, 5751340, 67207110, 00692223 #### [facility] [address] [place] [address] Protein [Mass/Vol] 7.9 g/dL High 6.0-7.8 [facility] Comment on above: Performed By: #### 2 817079, 3350694, 6916112, 08158887, 08588584 #### [facility] [address] [place] [address] Monitor Recordon 07-31-2023 Monitor Record [id number] 2#1.00TIFF Normal [facility] SEROLOGYOrdered By: Felicity patel on 07-31-2023 Beta HCG ( test) Ql Negative (07/31/23 4:20 PM) Normal [facility] Man Sero UA With Cult Reflexon 2023 Bacteria LM Ql (Urine sed) TRACE Normal Trace [facility] Comment on above: Performed By: #### 1 0541684 ####[facility] [address] [place] [address] Bilirubin Ql (U) Negative Normal Negative [facility] Comment on above: Performed By: #### 1 5084804 ####[facility] [address] [place] [address] Clarity (U) CLEAR Normal Clear [facility] Comment on above: Performed By: #### 1 5922070 ####[facility] [address] [place] [address] Color (U) YELLOW Normal Yellow [facility] Comment on above: Performed By: #### 1 3426142 ####[facility] [address] [place] [address] Epithelial cells.squamous LM.HPF (Urine sed) [#/Area] 0-2 Normal 0-2 [facility] Comment on above: Performed By: #### 1 3502555 ####[facility] [address] [place] [address] Glucose Test strip (U) [Mass/Vol] Negative Normal Negative [facility] Comment on above: Performed By: #### 1 2745766 ####[facility] [address] [place] [address] Hemoglobin Ql (U) Negative Normal Negative [facility] Comment on above: Performed By: #### 1 0243366 ####[address] [address] Ketones (U) [Mass/Vol] 1+ Abnormal Negative [facility] Comment on above: Performed By: #### 1 1200645 ####[address] [address] [place].plasma/[place]. RBC (Bld) [Mass ratio] 0-3 Normal 0-3 [facility] Comment on above: Performed By: #### 1 6302266 ####[facility] [address] [place] [address] Mucus Ql (Urine sed) TRACE Normal [facility] Comment on above: Performed By: #### 1 4204041 ####[address] [place] [address] Nitrite Ql (U) Negative Normal Negative [facility] Comment on above: Performed By: #### 1 4180792 ####[facility] [address] [place] [address] pH (U) 8.5 [pH] Invalid Interpretation Code 5.0-9.0 [facility] Comment on above: Performed By: #### 1 6348621 ####[address] [place] [address] Protein (U) [Mass/Vol] Negative Normal Negative [facility] Comment on above: Performed By: #### 1 8119910 ####[place] [address] Specific gravity (U) [Rel density] 1.015 Invalid Interpretation Code 1.005-1.030 [facility] Comment on above: Performed By: #### 1 0612804 ####[place] [address] Type of Urine collection method Clean Catch Normal [facility] Comment on above: Performed By: #### 1 2990875 ####[place] [address] Urobilinogen Qn (U) 0.2 {Ivone'U}/dL Normal 0.0-1.0 [facility] Comment on above: Performed By: #### 1 5926316 ####[place] [address] WBC Auto Ql (U) Negative Normal Negative [facility] Comment on above: Performed By: #### 1 4265954 ####[place] [address] WBC LM.HPF (Urine sed) [#/Area] 0-5 Normal 0-5 [facility] Comment on above: Performed By: #### 1 2807797 ####[place] [address] URINALYSISOrdered By: Felicity George on 07-31-2023 Bacteria LM Ql (Urine sed) Trace /HPF Normal Trace/HPF [facility] UA Auto SS Bilirubin Ql (U) Negative (07/31/23 4:30 PM) Normal Negative [facility] UA Auto SS Clarity (U) Clear (07/31/23 4:30 PM) Normal Clear [facility] UA Auto SS Color (U) Yellow (07/31/23 4:30 PM) Normal Yellow [facility] UA Auto SS Epithelial cells.squamous LM.HPF (Urine sed) [#/Area] 0-2 /HPF Normal 0-2/HPF [facility] UA Aut o SS Glucose Test strip (U) [Mass/Vol] Negative (07/31/23 4:30 PM) Normal Negative [facility] UA Auto SS Hemoglobin Ql (U) Negative (07/31/23 4:30 PM) Normal Negative [facility] UA Auto SS Ketones (U) [Mass/Vol] 1+ *ABN* (07/31/23 4:30 PM) Invalid Interpretation Code Negative [facility] UA Auto SS [place].plasma/[place]. RBC (Bld) [Mass ratio] 0-3 /HPF Normal [...] [facility] UA Auto SS Urobilinogen Qn (U) 0.4058103 {Ivone'U}/dL Normal 0.0 - 1.0 EU/dL [facility] UA Auto SS WBC Auto Ql (U) Negative (07/31/23 4:30 PM) Normal Negative [facility] UA Auto SS WBC LM.HPF (Urine sed) [#/Area] 0-5 /HPF Normal 0-5/HPF [facility] UA Auto SS eGFRon 07-31-2023 eGFR 85 mL/min/1.73 m2 Normal >=59 [facility] [place] Comment on above: Order Comment: Order added by Discern Expert. Performed By: #### 2 [id number], [id number], [id number], [id number], [id number] #### [facility] [address] [place] [address] ED NOTEon 06-23-2023 ED NOTE HNO ID: [id number] Author: DENNIS CAMARGO RN Service: ? Author Type: Registered Nurse Type: ED Notes Filed: 06/22/2023 22:17 Note Text: Patient given verbal and written D/C instructions. Medications and follow up care discussed. Instructed to return to ED if conditions and symptoms persist or worsen. All questions addressed and answered pt verbalized understanding. [facility] Normal [facility] HAV IgM Ser Qlon 06-23-2023 HAV IgM Ql (S) Negative Normal Negative [facility] Comment on above: Order Comment: Speci men Type: BLOOD SPECIMENOrdering Facility: [facility] Address: [address] [place] [address] Result Comment: No e vidence of recent infection with Hepatitis A virus. Performed By: #### 3 1204-1, 5-3, 84879-6 ####[facility] LABCLIA [id number] [place] [address] [place] HBV core IgM Ser Qlon 2023 HBV core IgM Ql (S) Negative Normal Negative [facility] Comment on above: Order Comment: Speci [facility] Type: BLOOD SPECIMENOrdering Facility: [facility] Address: [address] [place] [address] Result Comment: No e vidence of recent infection with Hepatitis B virus. Should recent infection be suspected, repeat testing may be considered 3-4 weeks after this draw. Performed By: #### 3 1204-1, 5, 81649-4 ####[facility] LABCLIA [id number] [place] [address] [place] HBV surface Ag Ser Qlon 06-13 HBV surface Ag Ql (S) Negative Normal Negative [facility] Comment on above: Order Comment: Speci [facility] Type: BLOOD SPECIMENOrdering Facility: [facility] Address: [address] [place] [address] Performed By: #### 3 1204-1, 3, 21763-8 ####[facility] LABCLIA [id number] [place] [address] [place] HCV RNA SerPl SENAIT+probe-aCnc on 06-23-2023 HCV RNA SENAIT+probe Qn Not detected Normal HCV RNA not detected by PCR. [facility] Comment on above: Order Comment: Speci men Type: BLOOD SPECIMEN Ordering Facility: [facility] Address: [address] [place] [address] Performed By: #### 1 1011-4 #### [facility] CLIA [id number] [facility] DESK [address] OF [facility] ALLIED HEALTHon 06-22-2023 ALLIED HEALTH HNO ID: [id number] Author: SELENA AMADOR RT(R) Service: Radiology Author [...] PERIPHERAL IV DATA: Inpatient - refer to LDA documentation RADIOLOGY DEPARTMENT: CT; Exam(s) Completed: Abdomen/Pelvis SIGNATURE: RT Jose(R) PATIENT NAME: Livia Noyola DATE: June 22, 2023 TIME: 7:46 PM [facility] ALLIED HEALTH HNO ID: [id number] Author: DELLA BEST RDMS, RVT Service: Radiology Author Type: Shop Welder Type: Allied Health Filed: 06/22/2023 18:55 Note [...] Not applicable SIGNED BY: Della Best RDMS, RVT June 22, 2023 6:55 PM [facility] CBC W Auto Differential pane l (Bld)on 06-22-2023 Basophils (Bld) [#/Vol] 0.03 10*3/uL Normal <0.[address] [facility] Comment on above: Order Comment: Speci men Type: BLOOD SPECIMENOrdering Facility: [facility] Address: [address] [place] [address] Performed By: #### 5 7021-8 ####[facility] LABORATORYCLIA [id number] [place] [address] [place] Basophils/100 WBC (Bld) 0.6 % Normal [facility] Comment on above: Order Comment: Speci men Type: BLOOD SPECIMENOrdering Facility: [facility] Address: [address] [place] [address] Performed By: #### 5 7021-8 ####[facility] LABORATORYCLIA [id number] [address] [place], [place] [id number] [place] Differential cell count method Nom (Bld) Auto Normal [facility] Comment on above: Order Comment: Speci men Type: BLOOD SPECIMENOrdering Facility: [facility] Address: [address] [place] [address] Performed By: #### 5 7021-8 ####[facility] LABORATORYCLIA [id number] [address] [place] [address] [place] Eosinophils (Bld) [#/Vol] 0.03 10*3/uL Normal <0.[address] [facility] Comment on above: Order Comment: Speci men Type: BLOOD SPECIMENOrdering Facility: [facility] Address: [address] [place] [address] Performed By: #### 5 7021-8 ####[facility] LABORATORYCLIA [id number] [address] [place] [address] [place] Eosinophils/100 WBC (Bld) 0.6 % [facility] Comment on above: Order Comment: Speci men Type: BLOOD SPECIMENOrdering Facility: [facility] Address: [address] [place] [address] Performed By: #### 5 7021-8 ####[facility] LABORATORYCLIA [id number] [address] [place] Erythrocyte distribution width (RBC) [Ratio] 16.5 % High 11.5-15.[address] [facility] Comment on above: Order Comment: Speci men Type: BLOOD SPECIMENOrdering Facility: [facility] Address: [address] [place] [address] Performed By: #### 5 7021-8 ####[facility] LABORATORYCLIA [id number] [address] [place] [address] [place] Hematocrit (Bld) [Volume fraction] 37.7 % Normal 36.0-46.[address] [facility] Comment on above: Order Comment: Speci men Type: BLOOD SPECIMENOrdering Facility: [facility] Address: [address] [place] [address] Performed By: #### 5 7021-8 ####[facility] LABORATORYCLIA [id number] [address] [place], [place] [id number] [place] Hemoglobin (Bld) [Mass/Vol] 11.7 g/dL Normal 11.5-15.[address] [facility] Comment on above: Order Comment: Speci men Type: BLOOD SPECIMENOrdering Facility: [facility] Address: [address] [place] [address] Performed By: #### 5 7021-8 ####[facility] LABORATORYCLIA [id number] [address] [place] [address] [place] Immature granulocytes (Bld) [#/Vol] 10*3/uL Normal <0.[address] [facility] Comment on above: Order Comment: Speci men Type: BLOOD SPECIMENOrdering Facility: [facility] Address: [address] [place] [address] Performed By: #### 5 7021-8 ####[facility] LABORATORYCLIA [id number] [place] [address] [place] Immature granulocytes/100 WBC (Bld) 0.4 % Normal [facility] Comment on above: Order Comment: Speci men Type: BLOOD SPECIMENOrdering Facility: [facility] Address: [address] [place] [address] Performed By: #### 5 7021-8 ####[facility] LABORATORYCLIA [id number] [place] [id number] [place] Lymphocytes (Bld) [#/Vol] 1.87 10*3/uL Normal 1.00-4.[address] [facility] Comment on above: Order Comment: Speci men Type: BLOOD SPECIMENOrdering Facility: [facility] Address: [address] [place] [address] Performed By: #### 5 7021-8 ####[facility] LABORATORYCLIA [id number] [place] [address] [place] Lymphocytes/100 WBC (Bld) 34.4 % Normal [facility] Comment on above: Order Comment: Speci men Type: BLOOD SPECIMENOrdering Facility: [facility] Address: [address] [place] [address] Performed By: #### 5 7021-8 ####[facility] LABORATORYCLIA [id number] [address] [place] [address] STATES [facility] MCH (RBC) [Entitic mass] 24.5 pg Low 26.0-34.[address] [facility] Comment on above: Order Comment: Speci men Type: BLOOD SPECIMENOrdering Facility: [facility] Address: [address] [place] [address] Performed By: #### 5 7021-8 ####[facility] LABORATORYCLIA [id number] [address] [place] [address] [place] MCHC (RBC) [Mass/Vol] 31.0 g/dL Normal 30.5-36.0 [facility] Comment on above: Order Comment: Speci men Type: BLOOD SPECIMENOrdering Facility: [facility] Address: [address] [place] [address] Performed By: #### 5 7021-8 ####[facility] LABORATORYCLIA [id number] [place] [address] [place] MCV (RBC) [Entitic vol] 79.0 fL Low 80.0-100.0 L [facility] Comment on above: Order Comment: Speci men Type: BLOOD SPECIMENOrdering Facility: [facility] Address: [address] [place] [address] Performed By: #### 5 7021-8 ####[facility] LABORATORYCLIA [id number] [address] [place] Monocytes (Bld) [#/Vol] 0.25 10*3/uL Normal <0.[address] [facility] Comment on above: Order Comment: Speci men Type: BLOOD SPECIMENOrdering Facility: [facility] Address: [address] [place] [address] Performed By: #### 5 7021-8 ####[facility] LABORATORYCLIA [id number] [address] [address] [place] Monocytes/100 WBC (Bld) 4.6 % Normal [facility] Comment on above: Order Comment: Speci men Type: BLOOD SPECIMENOrdering Facility: [facility] Address: [address] [place] [address] Performed By: #### 5 7021-8 ####[facility] LABORATORYCLIA [id number] [address] [place] [address] [place] Neutrophils (Bld) [#/Vol] 3.23 10*3/uL Normal 1.45-7.[address] [facility] Comment on above: Order Comment: Speci men Type: BLOOD SPECIMENOrdering Facility: [facility] Address: [address] [place] [address] Performed By: #### 5 7021-8 ####[facility] LABORATORYCLIA [id number] [address] [place] [address] [place] Neutrophils/100 WBC (Bld) 59.4 % Normal [facility] Comment on above: Order Comment: Speci men Type: BLOOD SPECIMENOrdering Facility: [facility] Address: [address] [place] [address] Performed By: #### 5 7021-8 ####[facility] LABORATORYCLIA [id number] [address] [place] [address] [place] Nucleated RBC (Bld) [#/Vol] 10*3/uL Normal <0.[address] [facility] Comment on above: Order Comment: Speci men Type: BLOOD SPECIMENOrdering Facility: [facility] Address: [address] [place] [address] Performed By: #### 5 7021-8 ####[facility] LABORATORYCLIA [id number] [address] [place] [address] [place] Nucleated RBC/100 WBC (Bld) [Ratio] 0.0 /[address] [facility] Comment on above: Order Comment: Speci men Type: BLOOD SPECIMENOrdering Facility: [facility] Address: [address] [place] [address] Performed By: #### 5 7021-8 ####[facility] LABORATORYCLIA [id number] [address] [place] [address] [place] Platelet mean volume (Bld) [Entitic vol] 9.4 fL Normal 9.0-12.[address] [facility] Comment on above: Order Comment: Speci men Type: BLOOD SPECIMENOrdering Facility: [facility] Address: [address] [place] [address] Performed By: #### 5 7021-8 ####[facility] LABORATORYCLIA [id number] [address] [place], [place] [address] [place] Platelets (Bld) [#/Vol] 486 10*3/uL High 150-[address] [facility] Comment on above: Order Comment: Speci men Type: BLOOD SPECIMENOrdering Facility: [facility] Address: [address] [place] [address] Performed By: #### 5 7021-8 ####[facility] LABORATORYCLIA [id number] [place] [address] [place] RBC (Bld) [#/Vol] 4.77 10*6/uL Normal 3.90-5.20 [facility] Comment on above: Order Comment: Speci men Type: BLOOD SPECIMENOrdering Facility: [facility] Address: [address] [place] [address] Performed By: #### 5 7021-8 ####[facility] LABORATORYCLIA [id number] [address] [place] WBC (Bld) [#/Vol] 5.43 10*3/uL Normal 3.70-11.00 [facility] Comment on above: Order Comment: Speci men Type: BLOOD SPECIMENOrdering Facility: [facility] Address: [address] [place] [address] Performed By: #### 5 7021-8 ####[facility] LABORATORYCLIA [id number] [address] [place], [place] [address] [place] CT ABD/PEL W IVCONon 06-22- 024 CT ABD/PEL W IVCON * * [...] Tissues: No significant finding. Lower thorax: Unremarkable. Rubber Thread Spooler (topogram) images: Unremarkable. IMPRESSION: No acute intra-abdominal or pelvic process identified. Heating Equipment Repairer: PSCB Transcribe Date/Time: Jun 22 2023 8:25P Dictated by : CHAD SCHILLING MD This examination was interpreted and the report reviewed and electronically signed by: CHAD SCHILLING MD on Jun 22 2023 8:29PM EST [id number] CN Normal [facility] Comprehensive metabolic 2000 panelon 06-22-2023 Albumin [Mass/Vol] 4.8 g/dL Normal 3.9-4.9 [facility] Comment on above: Order Comment: Speci men Type: BLOOD SPECIMENOrdering Facility: [facility] Address: [address] [place] [address] Performed By: #### 2 4323-8, 3040-3, 69410-3 ####[facility] LABORATORYCLIA [id number] [place] [address] [place] ALP [Catalytic activity/Vol] 108 U/L Normal 34-[address] [facility] Comment on above: Order Comment: Speci men Type: BLOOD SPECIMENOrdering Facility: [facility] Address: [address] [place] [address] Performed By: #### 2 4323-8, 0-3, ####[facility] LABORATORYCLIA [id number] [address] [place], [place] [address] [place] ALT [Catalytic activity/Vol] 63 U/L High 7-[address] [facility] Comment on above: Order Comment: Speci men Type: BLOOD SPECIMENOrdering Facility: [facility] Address: [address] [place] [address] Performed By: #### 2 4323-8, 3039-3, ####[facility] LABORATORYCLIA [id number] [place] [id number] [place] Anion gap [Moles/Vol] 13 mmol/L Normal 9-18 [facility] Comment on above: Order Comment: Speci men Type: BLOOD SPECIMENOrdering Facility: [facility] Address: [address] [place] [address] Performed By: #### 2 4323-8, 3039-3, ####[facility] LABORATORYCLIA [id number] [place] [id number] [place] AST [Catalytic activity/Vol] 109 U/L High 13-[address] [facility] Comment on above: Order Comment: Speci men Type: BLOOD SPECIMENOrdering Facility: [facility] Address: [address] [place] [address] Performed By: #### 2 4323-8, 3039-3, ####[facility] LABORATORYCLIA [id number] [place] [id number] [place] Bilirubin [Mass/Vol] 0.4 mg/dL Normal 0.2-1.[address] [facility] Comment on above: Order Comment: Speci men Type: BLOOD SPECIMENOrdering Facility: [facility] Address: [address] [place] [address] Performed By: #### 2 4323-8, 0-3, ####[facility] LABORATORYCLIA [id number] [address] [place], [place] [address] [place] Calcium [Mass/Vol] 9.6 mg/dL Normal 8.5-10.2 [facility] Comment on above: Order Comment: Speci men Type: BLOOD SPECIMENOrdering Facility: [facility] Address: [address] [place] [address] Performed By: #### 2 4323-8, 0-3, ####[facility] LABORATORYCLIA [id number] [address] [place], [place] [address] [place] Chloride [Moles/Vol] 102 mmol/L Normal 97-[address] [facility] Comment on above: Order Comment: Speci men Type: BLOOD SPECIMENOrdering Facility: [facility] Address: [address] [place] [address] Performed By: #### 2 4323-8, 3, ####[facility] LABORATORYCLIA [id number] [place] [id number] [place] CO2 [Moles/Vol] 23 mmol/L Normal 22-[address] [facility] Comment on above: Order Comment: Speci men Type: BLOOD SPECIMENOrdering Facility: [facility] Address: [address] [place] [address] Performed By: #### 2 4323-8, 3039-3, ####[facility] LABORATORYCLIA [id number] [place] [id number] [place] Creatinine [Mass/Vol] 0.64 mg/dL Normal 0.58-0.96 [facility] Comment on above: Order Comment: Speci men Type: BLOOD SPECIMENOrdering Facility: [facility] Address: [address] [place] [address] Performed By: #### 2 4323-8, 0-3, ####[facility] LABORATORYCLIA [id number] [place] [id number] [place] Creatinine and Glomerular filtration rate.predicted panel (S/P/Bld) 118 mL/min/1.73m??? Normal >=[address] [facility] Comment on above: Order Comment: Roselyn conway Type: BLOOD SPECIMENOrdering Facility: [facility] Address: [place] [address] Result Comment: Shelley mated Glomerular Filtration Rate [...] GFR. Performed By: #### 2 4323-8, 3040-3, 43903-2 ####[facility]ENTERIA [id number] [place] [id number] [place] Glucose [Mass/Vol] 102 mg/dL High 74-99 [facility] Comment on above: Order Comment: Roselyn conway Type: BLOOD SPECIMENOrdering Facility: [facility] Address: [place] [address] Result Comment: The [place] Diabetes Association (ADA) provides guidance for cutoff [...] Standards of Medical Care in Diabetes 2016, [place] [employer]. Diabetes Care. 2016.39(Suppl 1). Performed By: #### 2 4323-8, 3040-3, 12406-3 ####[facility] LABORATORYCLIA [id number] [place] [id number] [place] Potassium [Moles/Vol] 3.8 mmol/L Normal 3.7-5.1 [facility] Comment on above: Order Comment: Roselyn conway Type: BLOOD SPECIMENOrdering Facility: [facility] Address: [place] [address] Performed By: #### 2 4323-8, 3040-3, ####[facility] LABORATORYCLIA [id number] [place] [id number] [place] Protein [Mass/Vol] 8.2 g/dL High 6.3-8.0 [facility] Comment on above: Order Comment: Speci men Type: BLOOD SPECIMENOrdering Facility: [facility] Address: [place] [address] Performed By: #### 2 4323-8, 0-3, ####[facility] LABORATORYCLIA [id number] [place] [id number] [place] Sodium [Moles/Vol] 138 mmol/L Normal 136-144 [facility] Comment on above: Order Comment: Speci men Type: BLOOD SPECIMENOrdering Facility: [facility] Address: [place] [address] Performed By: #### 2 4323-8, 0-3, ####[facility] LABORATORYCLIA [id number] [place] [id number] [place] Urea nitrogen [Mass/Vol] 8 mg/dL Normal 7-[address] [facility] Comment on above: Order Comment: Speci men Type: BLOOD SPECIMENOrdering Facility: [facility] Address: [place] [address] Performed By: #### 2 4323-8, 0-3, ####[facility] LABORATORYCLIA [id number] [place] [id number] [place] ECG COMPLETEon 06-22-2023 ECG COMPLETE Ventricular Rate : 105 BPM Atrial Rate : 103 BPM P-R Interval : 152 ms QRS Duration : 77 ms Q-T Interval : 324 ms QTC Calculation(Bazett) : 429 ms Calculated P [place] : 42 degrees Calculated R [place] : 56 degrees Calculated T [place] : 49 degrees Sinus tachycardia Low voltage, precordial leads Anteroseptal infarct, old Abnormal ECG no stemi 1814 Confirmed by MD MCKINLEY, EVGENY ([id number]), field map editor STEPHENIE ERIC ([id number]) on 06/23/2023 12:09:36 PM NAME : LIVIA NOYOLA PID : [id number] : 1985 Gender : Female Race : ORD : [id number] Procedure Date : Jun 22 2023 18:10:13 Edit Date : Jun 23 2023 12:09:40 Diagnosis: Sinus tachycardia Low voltage, precordial leads Anteroseptal infarct, old Abnormal ECG no stemi 1814 Confirmed by MD SEN BRENT ([id number]), field map editor STEPHENIE ERIC ([id number]) on 06/23/2023 12:09:36 PM Test Reason : Tachycardia Location : 502 : [facility] ED Overread By : MD SEN BRENT Edited By : STEPHENIE ERIC Referred By : , Acquired by : DAVID [facility] ED NOTEon 06-22-2023 ED NOTE HNO ID: [id number] Author: DENNIS CAMARGO RN Service: ? Author Type: Registered Nurse Type: ED Notes Filed: 06/22/2023 21:56 Note Text: Assumed care of pt at this time and received report from previous RN. [facility] ED NOTE HNO ID: [id number] Author: MATILDE DAVIS RN Service: Nursing Author Type: Registered Nurse Type: ED Notes Filed: 06/22/2023 17:38 Note Text: Pt presents with LLQ pain that radiates to back that began this morning but worsened one hour prior to arrival. Denies urinary complaints. [facility] ED PROV NOTEon 06-22-2023 ED PROV NOTE HNO ID: [id number] Author: EVGENY SEN MD Service: Emergency Medicine [...] with some relief. History provided by: Patient language interpreter used: No PAST MEDICAL HISTORY Diagnosis [...] Hyperlipidemia Father Heart Father bypass surgery, stents, CT Social History Tobacco Use Smoking status: Never [...] Noteon 06-22-2023 ED Triage Note HNO ID: [id number] Author: TABBY LUCIANO PA-C Service: ? Author Type: Physician Coding Spec Type: ED Triage Notes Filed: 06/22/2023 17:43 [...] Comment: Speci men Type: URINE SPECIMENOrdering Facility: [facility] Address: [address] [place] [address], [place] [address] Result Comment: This test is intended to aid in the early detection of . Very dilute urine samples, as indicated by a low specific gravity, may not contain retail account representative levels of hCG. This test detects [...] for . Performed By: #### 2 106-3 ####[facility] LABORATORYCLIA [id number] [place] [address] [place] Lipase SerPl-cCncon 06-22-19 24 Lipase [Catalytic activity/Vol] 34 U/L Normal 16-[address] [facility] Comment on above: Order Comment: Speci men Type: BLOOD SPECIMENOrdering Facility: [facility] Address: [place] [id number] Performed By: #### 2 4323-8, 3040-3, ####[facility] LABORATORYCLIA [id number] [address] [address] [place] Magnesium SerPl-mCncon 06-22 Magnesium [Mass/Vol] 2.2 mg/dL Normal 1.7-2.[address] [facility] Comment on above: Order Comment: Speci men Type: BLOOD SPECIMENOrdering Facility: [facility] Address: [place] [id number] Performed By: #### 2 4323-8, 3040-3, ####[facility] LABORATORYCLIA [id number] [place] [id number] [place] US DOPPLER COMPLETEon 2023 US DOPPLER COMPLETE * * *Final Report* * * DATE OF EXAM: Jun 22 2023 6:54PM [facility] 1033 - US DOPPLER COMPLETE / PROCEDURE [...] and stored in a permanent archive. MQ: [facility]_2021 COMPARISON: None RESULT: Uterus: -Size: 8.1 [...] Normal sonographic appearance of the female pelvis. Heating Equipment Repairer: ANTONIO Transcribe Date/Time: Jun 22 2023 7:44P Dictated by : Vasu BURNS MD This examination was interpreted and the report reviewed and electronically signed by: Vasu BURNS MD on Jun 22 2023 7:48PM EST [id number] CN [facility] FEMALE PELVIS TRANSABD LT Don 06-22-2023 FEMALE PELVIS TRANSABD LTD * * *Final Report* * * DATE OF EXAM: Jun 22 2023 6:54PM ALESSIO 1059 - FEMALE PELVIS TRANSABD LTD / PROCEDURE REASON: Ovarian torsion * * * * Physician Interpretation * * * * EXAMINATION: TRANSVAGINAL AND LIMITED TRANSABDOMINAL FEMALE PELVIC ULTRASOUND CLINICAL HISTORY: Left lower quadrant pain x1 day. LMP: Approximately one week ago. TECHNIQUE: Sonography of the pelvis was performed by transvaginal and transabdominal (limited) techniques. Images were obtained and stored in a permanent archive. MQ: [facility]_2021 COMPARISON: None RESULT: Uterus: -Size: 8.1 [...] Normal sonographic appearance of the female pelvis. Heating Equipment Repairer: ANTONIO Transcribe Date/Time: Jun 22 2023 7:44P Dictated by : Vasu BURNS MD This examination was interpreted and the report reviewed and electronically signed by: Vasu BURNS MD on Jun 22 2023 7:48PM EST [id number] CN [facility] FEMALE PELVIS TRANSVAGon 06-22-2023 [place] FEMALE PELVIS [...] and stored in a permanent archive. MQ: [facility]_2021 COMPARISON: None RESULT: Uterus: -Size: 8.1 x [...] Normal sonographic appearance of the female pelvis. Heating Equipment Repairer: [facility] HOSPITALLuisito Transcribe Date/Time: Jun 22 2023 7:44P Dictated by : Vasu BURNS MD This examination was interpreted and the report reviewed and electronically signed by: Vasu BURNS MD on Jun 22 2023 7:48PM EST [id number] CN Normal [facility] Urinalysis complete panel (U )on 06-22-2023 Bacteria LM.HPF (Urine sed) [#/Area] Few Abnormal None Seen [facility] Comment on above: Order Comment: Speci men Type: URINE SPECIMENOrdering Facility: [facility] Address: [address] [place] [address] Performed By: #### 2 4356-8 ####CONFUCIANISM LABORATORYCLIA [id number] [place] [address] [place] Bilirubin Ql (U) Negative Normal Negative [facility] Comment on above: Order Comment: Speci men Type: URINE SPECIMENOrdering Facility: [facility] Address: [address] [place] [address] Performed By: #### 2 4356-8 ####CONFUCIANISM LABORATORYCLIA [id number] [address] [place] [address] OF [place] Clarity (Unsp spec) Clear Normal Clear [facility] Comment on above: Order Comment: Speci men Type: URINE SPECIMENOrdering Facility: [facility] Address: [address] [place] [address] Performed By: #### 2 4356-8 ####CONFUCIANISM LABORATORYCLIA [id number] [address] [place] [address] [place] Color (U) Yellow Normal Yellow [facility] Comment on above: Order Comment: Speci men Type: URINE SPECIMENOrdering Facility: [facility] Address: [address] [place] [address] Performed By: #### 2 4356-8 ####CONFUCIANISM LABORATORYCLIA [id number] [address] [place] [address] [place] Epithelial cells LM.HPF (Urine sed) [#/Area] Few Normal [facility] Comment on above: Order Comment: Speci men Type: URINE SPECIMENOrdering Facility: [facility] Address: [address] [place] [address] Performed By: #### 2 4356-8 ####CONFUCIANISM LABORATORYCLIA [id number] [address] [place] [address] [place] Glucose Test strip (U) [Mass/Vol] Negative Normal Negative [facility] Comment on above: Order Comment: Speci men Type: URINE SPECIMENOrdering Facility: [facility] Address: [address] [place] [address] Performed By: #### 2 4356-8 ####CONFUCIANISM LABORATORYCLIA [id number] [address] [place] [address] [place] Hemoglobin Ql (U) Negative Normal Negative [facility] Comment on above: Order Comment: Speci men Type: URINE SPECIMENOrdering Facility: [facility] Address: [address] [place] [address] Performed By: #### 2 4356-8 ####CONFUCIANISM LABORATORYCLIA [id number] [address] [place] [address] [place] Ketones Ql (U) Trace Abnormal Negative [facility] Comment on above: Order Comment: Speci men Type: URINE SPECIMENOrdering Facility: [facility] Address: [address] [place] [address] Performed By: #### 2 4356-8 ####CONFUCIANISM LABORATORYCLIA [id number] [place] [address] [place] Leukocyte esterase Test strip Ql (U) Negative Normal Negative [facility] Comment on above: Order Comment: Speci men Type: URINE SPECIMENOrdering Facility: [facility] Address: [address] [place] [address] Performed By: #### 2 4356-8 ####CONFUCIANISM LABORATORYCLIA [id number] [place] [address] [place] Nitrite Ql (U) Negative Normal Negative [facility] Comment on above: Order Comment: Speci men Type: URINE SPECIMENOrdering Facility: [facility] Address: [address] [place] [address] Performed By: #### 2 4356-8 ####CONFUCIANISM LABORATORYCLIA [id number] [place] [address] [place] pH (U) 6.5 [pH] Normal 5.0-8.[address] [facility] Comment on above: Order Comment: Speci men Type: URINE SPECIMENOrdering Facility: [facility] Address: [address] [place] [address] Performed By: #### 2 4356-8 ####CONFUCIANISM LABORATORYCLIA [id number] [place] [address] [place] Protein (U) [Mass/Vol] Negative Normal Negative [facility] Comment on above: Order Comment: Speci men Type: URINE SPECIMENOrdering Facility: [facility] Address: [address] [place], [place] [id number] Performed By: #### 2 4356-8 ####CONFUCIANISM LABORATORYCLIA [id number] [address] [place], [place] [id number] [place] RBC LM.HPF (Urine sed) [#/Area] 0-3 /HPF Normal 0-3 /HPF [facility] Comment on above: Order Comment: Speci men Type: URINE SPECIMENOrdering Facility: [facility] Address: [address] [place] [address] Performed By: #### 2 4356-8 ####CONFUCIANISM LABORATORYCLIA [id number] [place] [address] [place] Specific gravity (U) [Rel density] 1.020 Normal 1.005-1.[address] [facility] Comment on above: Order Comment: Speci men Type: URINE SPECIMENOrdering Facility: [facility] Address: [address] [place] [address] Performed By: #### 2 4356-8 ####CONFUCIANISM LABORATORYCLIA [id number] [place] [id number] [place] Urobilinogen Ql (U) 1.0 EU/dL Normal 0.2-1.0 EU/dL [facility] Comment on above: Order Comment: Speci men Type: URINE SPECIMENOrdering Facility: [facility] Address: [address] [place] [address] Performed By: #### 2 4356-8 ####CONFUCIANISM LABORATORYCLIA [id number] [place] [id number] [place] WBC LM.HPF (Urine sed) [#/Area] 0-5 /HPF Normal 0-5 /HPF [facility] Comment on above: Order Comment: Speci men Type: URINE SPECIMENOrdering Facility: [facility] Address: [address] [place] [address] Performed By: #### 2 4356-8 ####CONFUCIANISM LABORATORYCLIA [id number] [place] [id number] [place] Basic Metabolic Profon 05-30 Anion gap [Moles/Vol] 12 mmol/L Normal 9-17 [facility] Comment on above: Performed By: #### B MP, LIP, LIVP, CDP, HCG #### [facility] [address] [place] [address] Kelp Cutter: Jennifer Freire MD BUN/CRE Ratio 7 Low 9-20 [facility] Comment on above: Performed By: #### B MP, LIP, LIVP, CDP, HCG #### [facility] [address] [place], [place] [address] Kelp Cutter: Jennifer Freire MD Calcium [Mass/Vol] 9.8 mg/dL Normal 8.6-10.4 [facility] Comment on above: Performed By: #### B MP, LIP, LIVP, CDP, HCG #### [facility] [address] [place] [address] Kelp Cutter: Jennifer Freire MD Chloride [Moles/Vol] 99 mmol/L Normal 98-107 [facility] Comment on above: Performed By: #### B MP, LIP, LIVP, CDP, HCG #### [facility] [address] [place] [address] Kelp Cutter: Jennifer Freire MD CO2 [Moles/Vol] 24 mmol/L Normal 20-31 [facility] Comment on above: Performed By: #### B MP, LIP, LIVP, CDP, HCG #### [facility] [address] [place] [address] Kelp Cutter: Jennifer Freire MD Creatinine [Mass/Vol] 0.7 mg/dL Normal 0.5-0.9 [facility] Comment on above: Performed By: #### B MP, LIP, LIVP, CDP, HCG #### [facility] [address] [place] [address] Kelp Cutter: Jennifer Freire MD GFR/1.73 sq M.predicted among non-blacks MDRD (S/P/Bld) [Vol rate/Area] mL/min/{1.73_m2} Normal >60 [facility] Comment on above: Result Comment: These [...] B MP, LIP, LIVP, CDP, HCG #### [facility] [address] [place] [address] Kelp Cutter: Jennifer Freire MD Glucose [Mass/Vol] 97 mg/dL Normal 70-99 [facility] Comment on above: Performed By: #### B MP, LIP, LIVP, CDP, HCG #### [facility] [address] [place] [address] Kelp Cutter: Jennifer Freire MD Potassium [Moles/Vol] 3.9 mmol/L Normal 3.7-5.3 [facility] Comment on above: Performed By: #### B MP, LIP, LIVP, CDP, HCG #### [facility] [address] [place] [address] Kelp Cutter: Jennifer Freire MD Sodium [Moles/Vol] 135 mmol/L Normal 135-144 [facility] Comment on above: Performed By: #### B MP, LIP, LIVP, CDP, HCG #### [facility] [address] [place] [address] Kelp Cutter: Jennifer Freire MD Urea nitrogen [Mass/Vol] 5 mg/dL Low 6-20 [facility] Comment on above: Performed By: #### B MP, LIP, LIVP, CDP, HCG #### [facility] [address] [place] [address] Kelp Cutter: Jennifer Freire MD CBC with Diffon 05-30-2023 Abs. Basophil 0.02 k/uL Normal 0.00-0.20 [facility] Comment on above: Performed By: #### B MP, LIP, LIVP, CDP, HCG #### [facility] [address] [place] [address] Kelp Cutter: Jennifer Freire MD Abs.Imm.Granulocyte 0.00 k/uL Normal 0.00-0.30 [facility] Comment on above: Performed By: #### B MP, LIP, LIVP, CDP, HCG #### [facility] [address] [place] [address] Kelp Cutter: Jennifer Freire MD Abs.Neutrophil (Seg) 2.21 k/uL Low 2.5-7.0 [facility] Comment on above: Performed By: #### B MP, LIP, LIVP, CDP, HCG #### [facility] [address] [place] [address] Kelp Cutter: Jennifer Freire MD Basophils/100 WBC (Bld) 0 % Normal 0-2 [facility] Comment on above: Performed By: #### B MP, LIP, LIVP, CDP, HCG #### [facility] [address] [place] [address] Kelp Cutter: Jennifer Freire MD Eosinophils (Bld) [#/Vol] 0.05 10*3/uL Normal 0.00-0.40 [facility] Comment on above: Performed By: #### B MP, LIP, LIVP, CDP, HCG #### [facility] [address] [place] [address] Kelp Cutter: Jennifer Freire MD Eosinophils/100 WBC (Bld) 1 % Normal 0-5 [facility] Comment on above: Performed By: #### B MP, LIP, LIVP, CDP, HCG #### [facility] [address] [place] [id number] Kelp Cutter: Jennifer Freire MD Erythrocyte distribution width (RBC) [Ratio] 16.5 % High 12.1-15.2 [facility] Comment on above: Performed By: #### B MP, LIP, LIVP, CDP, HCG #### [facility] [address] [place] [phone] Kelp Cutter: Jennifer Freire MD Hematocrit (Bld) [Volume fraction] 37.2 % Normal 36.0-46.0 [facility] Comment on above: Performed By: #### B MP, LIP, LIVP, CDP, HCG #### [facility] [address] [place] [address] Kelp Cutter: Jennifer Freire MD Hemoglobin (Bld) [Mass/Vol] 11.7 g/dL Low 12.0-16.0 [facility] Comment on above: Performed By: #### B MP, LIP, LIVP, CDP, HCG #### [facility] [address] [place] [id number] Kelp Cutter: Jennifer Freire MD Immature granulocytes/100 WBC (Bld) 0 % Normal 0-5 [facility] Comment on above: Performed By: #### B MP, LIP, LIVP, CDP, HCG #### [facility] [address] [place] [address] Kelp Cutter: Jennifer Freire MD Lymphocytes (Bld) [#/Vol] 2.45 10*3/uL Normal 1.00-4.80 [facility] Comment on above: Performed By: #### B MP, LIP, LIVP, CDP, HCG #### [facility] [address] [place] [phone] Kelp Cutter: Jennifer Freire MD Lymphocytes/100 WBC (Bld) 48 % High 15-40 [facility] Comment on above: Performed By: #### B MP, LIP, LIVP, CDP, HCG #### [facility] [address] [place] [address] Kelp Cutter: Jennifer Freire MD MCH (RBC) [Entitic mass] 24.2 pg Low 26.0-34.0 [facility] Comment on above: Performed By: #### B MP, LIP, LIVP, CDP, HCG #### [facility] [address] [place] [phone] Kelp Cutter: Jennifer Freire MD MCHC (RBC) [Mass/Vol] 31.5 g/dL Normal 31.0-37.0 [facility] Comment on above: Performed By: #### B MP, LIP, LIVP, CDP, HCG #### [facility] [address] [place] [address] Kelp Cutter: Jennifer Freire MD MCV (RBC) [Entitic vol] 76.9 fL Low 80.0-100.0 M [facility] Comment on above: Performed By: #### B MP, LIP, LIVP, CDP, HCG #### [facility] [address] [place] [address] Kelp Cutter: Jennifer Freire MD Monocytes (Bld) [#/Vol] 0.37 10*3/uL Normal 0.00-1.00 [facility] Comment on above: Performed By: #### B MP, LIP, LIVP, CDP, HCG #### [facility] [address] [place], [place] [phone] Kelp Cutter: Jennifer Freire MD Monocytes/100 WBC (Bld) 7 % Normal 4-8 M [facility] Comment on above: Performed By: #### B MP, LIP, LIVP, CDP, HCG #### [facility] [address] [place], [place] [phone] Kelp Cutter: Jennifer Freire MD Neutrophil (Seg) 43 % Low 47-75 [facility] Comment on above: Performed By: #### B MP, LIP, LIVP, CDP, HCG #### [facility] [address] [place], [place] [phone] ([phone] Kelp Cutter: Jennifer Freire MD Platelet mean volume (Bld) [Entitic vol] 8.7 fL Normal 6.0-12.0 [facility] Comment on above: Performed By: #### B MP, LIP, LIVP, CDP, HCG #### [facility] [address] [place], [place] [phone] ([phone] Kelp Cutter: Jennifer Freire MD Platelets (Bld) [#/Vol] 512 10*3/uL High 140-450 [facility] Comment on above: Performed By: #### B MP, LIP, LIVP, CDP, HCG #### [facility] [address] [place], [place] [phone] ([phone] Kelp Cutter: Jennifer Freire MD RBC (Bld) [#/Vol] 4.84 10*6/uL Normal 4.00-5.20 [facility] Comment on above: Performed By: #### B MP, LIP, LIVP, CDP, HCG #### [facility] [address] [place], [place] [phone] ([phone] Kelp Cutter: Jennifer Freire MD WBC (Bld) [#/Vol] 5.1 10*3/uL Normal 3.5-11.0 [facility] Comment on above: Performed By: #### B MP, LIP, LIVP, CDP, HCG #### [facility] [address] [place], [place] [phone] Kelp Cutter: Jennifer Freire MD CT ABDOMEN PELVIS W [...] Marilyn Narvaez MD 05/30/23 Final result Normal [facility] HCG Screen, Bloodon 05-30-20 HCG Screen, Blood Negative Normal NEG [facility] Comment on above: Result Comment: Spec imens with hCG levels near the threshold of the test (25 mIU/mL) may give a negative or indeterminate result. In such cases, another test should be performed with a new specimen in 48-72 hours. If early is suspected clinically in this setting, correlation with quantitative serum b-hCG level is suggested. [facility] has confirmed the use of plasma for this test. This has not been cleared or approved by the U.S. Food and Drug Administration. The FDA has determined that such clearance is not necessary. Performed By: #### B MP, LIP, LIVP, CDP, HCG #### [facility] [address] [place] [address] Kelp Cutter: Jennifer Freire MD Lipaseon 05-30-2023 Lipase [Catalytic activity/Vol] 28 U/L Normal 13-60 [facility] Comment on above: Performed By: #### B MP, LIP, LIVP, CDP, HCG #### [facility] [address] [place] [address] Kelp Cutter: Jennifer Freire MD Liver Profileon 05-30-2023 Albumin [Mass/Vol] 4.3 g/dL Normal 3.5-5.2 [facility] Comment on above: Performed By: #### B MP, LIP, LIVP, CDP, HCG #### [facility] [address] [place], [place] [phone] Kelp Cutter: Jennifer Freire MD Alkaline Phos 86 U/L Normal 35-104 [facility] Comment on above: Performed By: #### B MP, LIP, LIVP, CDP, HCG #### [facility] [address] [place], [place] [phone] Kelp Cutter: Jennifer Freire MD ALT [Catalytic activity/Vol] 14 U/L Normal 5-33 [facility] Comment on above: Performed By: #### B MP, LIP, LIVP, CDP, HCG #### [facility] [address] [place], [place] [phone] Kelp Cutter: Jennifer Freire MD AST [Catalytic activity/Vol] 18 U/L Normal <32 [facility] Comment on above: Performed By: #### B MP, LIP, LIVP, CDP, HCG #### [facility] [address] [place], [place] [phone] Kelp Cutter: Jennifer Freire MD Bilirubin [Mass/Vol] 0.5 mg/dL Normal 0.3-1.2 [facility] Comment on above: Performed By: #### B MP, LIP, LIVP, CDP, HCG #### [facility] [address] [place], [place] [phone] Kelp Cutter: Jennifer Freire MD Bilirubin, Indirect Can not be calculated Normal 0.0-1.0 [facility] Comment on above: Performed By: #### B MP, LIP, LIVP, CDP, HCG #### [facility] [address] [place], [place] [phone] Kelp Cutter: Jennifer Freire MD Bilirubin.indirect [Mass/Vol] mg/dL Normal <0.3 [facility] Comment on above: Performed By: #### B MP, LIP, LIVP, CDP, HCG #### [facility] [address] [place], [place] [phone] Kelp Cutter: Jennifer Freire MD Protein [Mass/Vol] 7.9 g/dL Normal 6.4-8.3 [facility] Comment on above: Performed By: #### B MP, LIP, LIVP, CDP, HCG #### [facility] [address] [place], [place] [phone] Kelp Cutter: Jennifer Freire MD Urinalysis, Routineon 2022 Bilirubin, SemiQt,Ur Negative Normal NEG [facility] Comment on above: Performed By: #### U A #### [facility] [address] [place], [place] [phone] Kelp Cutter: Jennifer Freire MD Blood, Urine Negative Normal NEG [facility] Comment on above: Performed By: #### U A #### [facility] [address] [place], [place] [phone] Kelp Cutter: Jennifer Freire MD Clarity (U) Clear Normal CLEAR [facility] Comment on above: Performed By: #### U A #### [facility] [address] [place], [place] [phone] Kelp Cutter: Jennifer Freire MD Color (U) Yellow Normal YEL [facility] Comment on above: Performed By: #### U A #### [facility] [address] [place], [place] [phone] Kelp Cutter: Jennifer Freire MD Comment Normal [facility] Comment on above: Performed By: #### U A #### [facility] [address] [place], [place] [phone] Kelp Cutter: Jennifer Freire MD Glucose Ql (U) Negative Normal NEG [facility] Comment on above: Performed By: #### U A #### [facility] [address] [place] [address] Kelp Cutter: Jennifer Freire MD Ketones Ql (U) Negative Normal NEG [facility] Comment on above: Performed By: #### U A #### [facility] [address] [place], [place] [phone] Kelp Cutter: Jennifer Freire MD Leukocyte esterase Test strip Ql (U) Negative Normal NEG [facility] Comment on above: Performed By: #### U A #### [facility] [address] [place] [address] Kelp Cutter: Jennifer Freire MD Nitrite,Ur Negative Normal NEG [facility] Comment on above: Performed By: #### U A #### [facility] [address] [place], [place] [phone] Kelp Cutter: Jennifer Freire MD PH,Ur 8.0 Normal 5.0-8.0 [facility] Comment on above: Performed By: #### U A #### [facility] [address] [place] [address] Kelp Cutter: Jennifer Freire MD Protein Ql (U) Negative Normal NEG [facility] Comment on above: Performed By: #### U A #### [facility] [address] [place], [place] [phone] Kelp Cutter: Jennifer Freire MD Spec. [place],Ur 1.010 Normal 1.005-1.030 [facility] Comment on above: Performed By: #### U A #### [facility] [address] [place], [place] [phone] Kelp Cutter: Jennifer Freire MD Urobilinogen,Ur Normal Normal 0.0-1.0 [facility] Comment on above: Performed By: #### U A #### [facility] [address] [place], [place] [phone] Kelp Cutter: Jennifer Freire MD Discharge Instructionson Discharge Instructions [id number] 120 [id number] #[id number] Normal [facility] ED Clinical Summaryon 2022 ED Clinical Summary [address] [address] ED Clinical Summary Person Information Name: LIVIA NOYOLA/Michelle Age: 38 Years : 1985 Sex: Female Language: Ugandan PCP: BETTIE MIRELES Marital Status: MRN: [id number] Visit Id: Visit Reason: Back pain; Abdominal [...] 05/18/2023 00:57:00 ADDRESS: [address] [place] [id number] PHYS DOC NOTES: MEDICAL INFORMATION: Prescriptions Given: Medications to Continue with No Changes Other Medications alprazolam (alprazolam 0.25 mg Tab) budesonide-formotero l (Symbicort 80/4.5 inhalation aerosol with adapter) citalopram (citalopram 20 mg Tab) By Mouth every day. PATIENT EDUCATION INFORMATION: Instructions: Ovarian Cyst Follow up: With: Address: When: [facility] [address] [place] [address], [place] [address] Business (6) In 3 days 05/21/2023 DIAGNOSIS: Bilateral ovarian cysts; Unspecified ovarian cyst, left side Normal [facility] ED Note-Nursingon 05-18-2023 ED Note-Nursing Pt being transported to [place] at this time Normal [facility] ED Note-Physicianon 05-18-20 ED Note-Physician Basic Information [...] and Complexity of Problems Differential Diagnosis: [] [facility] Data External documents reviewed: N/A My [...] of discharge with 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 We discussed [...] medications Follow-up With When Contact Information Ino Royal In 3 days 05/21/[address] [place] [address]- Business (1) Additional Instructions: Patient [...] (05/17/23 21:12 (more content not included)... Normal [facility] Comment on above: Result Comment: Elec tronically [...] Follow these instructions at home: ? Take [id number] and prescription medicines only as told by [...] Reviewed: 11/06/2020 Elsevier Patient Education ? 2022 [employer]. Normal [facility] ED Patient Summaryon 023 ED Patient Summary [address] [address] Patient Discharge Instructions Person Information Name: LIVIA NOYOLA Age: 38 Years Arrival Date: 05/17/2023 20:20:39 Discharge Diagnosis: Bilateral ovarian cysts; Unspecified ovarian cyst, left side Primary Care Physician: BETTIE MIRELES Provider Information Primary Provider: Ritesh Heath DO Advanced [employer] Buyer:Shazia The exam and treatment you received in the Emergency Department were for an urgent problem and are not intended as complete care. It is important that you follow up with a doctor, nurse practitioner, or physician?s office services assistant for ongoing care. If your symptoms [...] Follow-up Instructions: With: Address: When: Ino Royal [address] [place] [address] [facility] (1) In 3 days 05/21/2023 In the event that this physician does not participate in your insurance network, please consult with your insurance company to find a nearby participating provider. Patient Education Materials: Ovarian Cyst A MESSAGE TO ALL PATIENTS REGARDING OPIOIDS PRESCRIPTION OPIOIDS: WHAT YOU NEED TO KNOW Prescription opioids can be used to help relieve fpmgrkxs-gh-jpsjwi pain and are often prescribed following a [...] from the Food and Drug Administration (www.fda.gov/Drugs/R juan josécesMeliYou). ? Visit www.cdc.gov/drugover dose to learn about the risks of opioids abuse and overdose. ? If you believe you may be struggling with addiction, tell your health health care manager and ask for guidance or call [facility]?S National Helpline at 3-522-541-ZVVI. (more content not included)... Normal [facility] UA With Cult Reflexon 2022 Bacteria LM Ql (Urine sed) TRACE Normal Trace [facility] Comment on above: Performed By: #### 1 [id number], [id number] ####[facility] [address] [place] [address] Bilirubin Ql (U) Negative Normal Negative [facility] Comment on above: Performed By: #### 1 0440614, [id number] ####[facility] [address] [place] [address] Clarity (U) CLEAR Normal Clear [facility] Comment on above: Performed By: #### 1 9283171, 53051618 ####[facility] [address] [place] [address] Color (U) YELLOW Normal Yellow [facility] Comment on above: Performed By: #### 1 3482399, 11523890 ####[address] [place] [address] Epithelial cells.squamous LM.HPF (Urine sed) [#/Area] 3-4 Normal 0-2 [facility] Comment on above: Performed By: #### 1 3549819, 38118519 ####[facility] [address] [place] [address] Glucose Test strip (U) [Mass/Vol] Negative Normal Negative [facility] Comment on above: Performed By: #### 1 0149854, 52601173 ####[facility] [address] [place] [address] Hemoglobin Ql (U) Negative Normal Negative [facility] Comment on above: Performed By: #### 1 7401208, 82495142 ####[address] [address] Ketones (U) [Mass/Vol] TRACE Invalid Interpretation Code Negative [facility] Comment on above: Performed By: #### 1 8758216, 74471652 ####[address] [place].plasma/[place]. RBC (Bld) [Mass ratio] 0-3 Normal 0-3 [facility] Comment on above: Performed By: #### 1 5287070, 23114288 ####[place] [address] Mucus Ql (Urine sed) 2+ Normal Fish [facility] Comment on above: Performed By: #### 1 7678772, 33509642 ####[place] [address] Nitrite Ql (U) Negative Normal Negative [facility] Comment on above: Performed By: #### 1 4633275, 74425665 ####[place] [address] pH (U) 6.0 [pH] Invalid Interpretation Code 5.0-9.0 [facility] Comment on above: Performed By: #### 1 9325420, 79446248 ####[place] [address] Protein (U) [Mass/Vol] Negative Normal Negative [facility] Comment on above: Performed By: #### 1 1521267, 54369795 ####[address] [address] Specific gravity (U) [Rel density] >=1.030 Invalid Interpretation Code 1.005-1.030 [facility] Comment on above: Performed By: #### 1 1620489, 15494637 ####[place] [address] Type of Urine collection method Clean Catch Normal [facility] Comment on above: Performed By: #### 1 2796589, 44483635 ####[facility] [address] [place] [address] Urobilinogen Qn (U) 2.0 {Ivone'U}/dL Abnormal 0.0-1.0 [facility] Comment on above: Performed By: #### 1 3522784, 92340155 ####[facility] [address] [place] [address] WBC Auto Ql (U) Negative Normal Negative [facility] Comment on above: Performed By: #### 1 0043598, 75727511 ####[facility] [address] [place] [address] WBC LM.HPF (Urine sed) [#/Area] 0-5 Normal 0-5 [facility] Comment on above: Performed By: #### 1 7808765, 44299259 ####[facility] [address] [place] [address] US Pelvis Non-OB Completeon 05-18-2023 US Pelvis [...] CARMELINA Technical Comments Transabdominal Ultrasound Performed Normal [facility] Auto Diffon 05-17-2023 Basophils/100 WBC (Bld) 0.4 % Normal 0.0-2.0 [facility] Comment on above: Order Comment: Order Added by Discern Expert. Performed By: #### 1 2164420, 2882401, 2629503, 5519023, 9535864, 94204956, 5329661 ####[facility] [address] [place] [address] Basophils/Leukocytes Auto (Bld) [Pure # fraction] 0.0 E9/L Normal 0.0-0.2 [facility] Comment on above: Order Comment: Order Added by Lis Expert. Performed By: #### 1 8920791, 1739578, 7057877, 9213753, 3731546, 71439521, 4045149 ####[facility] [address] [place] [address] Eosinophils/100 WBC (Bld) 0.2 % Normal 0.0-8.0 [facility] Comment on above: Order Comment: Order Added by Discern Expert. Performed By: #### 1 9886004, 9413435, 6554056, 4709645, 0411196, 36473930, 2219855 ####[facility] [address] [place] [address] Eosinophils/Leukocytes Auto (Bld) [Pure # fraction] 0.0 E9/L Normal 0.0-0.5 [facility] Comment on above: Order Comment: Order Added by Discern Expert. Performed By: #### 1 9781435, 5850657, 6798222, 9793373, 8463451, 17071178, 8259237 ####[facility] [address] [place] [address] Lymphocytes/100 WBC (Bld) 33.4 % Normal 14.0-50.0 [facility] Comment on above: Order Comment: Order Added by Discern Expert. Performed By: #### 1 0139937, 3543292, 7652529, 3828043, 7583686, 38567878, 4715759 ####[address] [place] [address] Lymphocytes/Leukocytes Auto (Bld) [Pure # fraction] 2.8 E9/L Normal 1.0-4.0 [facility] Comment on above: Order Comment: Order Added by Lis Expert. Performed By: #### 1 1630293, 3770154, 0263671, 3927799, 8586407, 65716137, 7834862 ####[address] [place] [address] Monocytes/100 WBC (Bld) 9.1 % Normal 4.0-14.0 [facility] Comment on above: Order Comment: Order Added by Lis Expert. Performed By: #### 1 7204695, 6873385, 0550138, 5098167, 7136415, 28809378, 6555137 ####[address] [place] [address] Monocytes/Leukocytes Auto (Bld) [Pure # fraction] 0.8 E9/L Normal 0.2-1.0 [facility] Comment on above: Order Comment: Order Added by Lis Expert. Performed By: #### 1 7349747, 4242159, 3741662, 7057798, 4528227, 51461827, 0376004 ####[address] [place] [address] Neutrophils/100 WBC (Bld) 56.9 % Normal 36.0-75.0 [facility] Comment on above: Order Comment: Order Added by Discern Expert. Performed By: #### 1 8815357, 4567294, 6615446, 3574494, 7638429, 07793411, 9031114 ####[facility] [address] [place] [address] Neutrophils/Leukocytes Auto (Bld) [Pure # fraction] 4.8 E9/L Normal 2.0-7.5 [facility] Comment on above: Order Comment: Order Added by Discern Expert. Performed By: #### 1 8918973, 3333418, 6073563, 9696346, 6456340, 16158107, 7097340 ####[facility] [address] [place] [address] BMPon 05-17-2023 Creatinine [Mass/Vol] 0.8 mg/dL Normal 0.5-1.3 [facility] Comment on above: Performed By: #### 1 5125786, 1107246, 7896859, 9417351, 1848445, 09479101, 4026474 ####[facility] [address] [place] [address] Urea nitrogen [Mass/Vol] 5 mg/dL Normal 5-21 [facility] Comment on above: Performed By: #### 1 7226456, 7041185, 7475994, 3687075, 9152542, 79135488, 5822792 ####[facility] [address] [place] [address] Urea nitrogen/Creatinine [Mass ratio] 6 No Units Low 10-20 [facility] Comment on above: Performed By: #### 1 4039462, 6971463, 4433589, 4276393, 6401575, 78246090, 9732402 ####[facility] [address] [place] [address] Anion gap [Moles/Vol] 11 mmol/L Normal 6-16 [facility] Comment on above: Performed By: #### 1 9057154, 7228386, 2810313, 4255586, 8848792, 02648376, 0214373 ####[facility] [address] [place] [address] Calcium [Mass/Vol] 9.3 mg/dL Normal 8.9-11.1 [facility] Comment on above: Performed By: #### 1 3521121, 5495816, 3159134, 8729526, 5122261, 29689030, 2185416 ####[facility] [address] [place] [address] Chloride [Moles/Vol] 109 mmol/L Normal 101-111 [facility] Comment on above: Performed By: #### 1 7688195, 0012596, 8890526, 1706390, 7946359, 27285287, 1357678 ####[facility] [address] [place] [address] CO2 [Moles/Vol] 23 mmol/L Normal 21-31 [facility] Comment on above: Performed By: #### 1 6333554, 4103576, 1457390, 7231982, 6963097, 58488626, 9660424 ####[facility] [address] [place] [address] Glucose [Mass/Vol] 104 mg/dL Normal 55-199 [facility] Comment on above: Result Comment: If t his glucose result represents a fasting glucose, interpretation should refer to the following reference range: 55-99 mg/dL Performed By: #### 1 8346839, 6238007, 2761951, 7317001, 3867055, 56193580, 5169188 ####[facility] [address] [place] [address] Potassium [Moles/Vol] 4.1 mmol/L Normal 3.5-5.3 [facility] Comment on above: Performed By: #### 1 6332980, 8787486, 3457096, 4074097, 0362210, 97066534, 2402657 ####[facility] [address] [place] [address] Sodium [Moles/Vol] 139 mmol/L Normal 135-145 [facility] Comment on above: Performed By: #### 1 5534358, 1264424, 9762410, 8593581, 3863211, 58723868, 6329314 ####[facility] [address] [place] [address] CBC w/ Auto Diffon 3 Erythrocyte distribution width (RBC) [Ratio] 18.7 % High 10.9-14.2 [facility] Comment on above: Performed By: #### 1 8989896, 0348484, 7001979, 7026731, 2156102, 11018934, 2994554 #### [facility] [address] [place] [address] Hematocrit (Bld) [Volume fraction] 37.4 % Normal 34.0-46.0 [facility] Comment on above: Performed By: #### 1 7913714, 8048494, 3843098, 5150163, 7433280, 90318418, 4890932 #### [facility] [address] [place] [address] Hemoglobin (Bld) [Mass/Vol] 11.7 g/dL Low 12.0-16.0 [facility] Comment on above: Performed By: #### 1 9541375, 0843783, 8666263, 3420513, 6049740, 74187937, 5222605 #### [facility] [address] [place] [address] MCH (RBC) [Entitic mass] 24.4 pg Low 27.0-34.0 [facility] Comment on above: Performed By: #### 1 9381213, 1091104, 7685861, 9084759, 2189836, 08465752, 2936860 #### [facility] [address] [place] [address] MCHC (RBC) [Mass/Vol] 31.2 g/dL Low 31.4-36.0 [facility] Comment on above: Performed By: #### 1 5266690, 5939995, 7568340, 4394203, 2810513, 47341399, 2884860 #### [facility] [address] [place] [address] MCV (RBC) [Entitic vol] 78.2 fL Low 80.0-100.0 [facility] Comment on above: Performed By: #### 1 8775220, 3176322, 3623001, 0413497, 6809389, 70284331, 4933695 #### [facility] [address] [place] [address] Platelet mean volume (Bld) [Entitic vol] 7.8 fL Normal 6.4-10.8 [facility] Comment on above: Performed By: #### 1 4308369, 7168493, 9205538, 6522132, 4712455, 71574164, 6284336 #### [facility] [address] [place] [address] Platelets (Bld) [#/Vol] 469.0 E9/L Normal 150.0-500.0 [facility] Comment on above: Performed By: #### 1 3911914, 3644819, 5516340, 9749357, 6638003, 43576970, 5541121 #### [facility] [address] [place] [address] RBC (Bld) [#/Vol] 4.8 E12/L Normal 4.3-5.9 [facility] Comment on above: Performed By: #### 1 1814503, 9755290, 1244328, 0463315, 1532430, 26173242, 1366316 #### [facility] [address] [place] [address] WBC corrected for nucl RBC Auto (Bld) [#/Vol] 8.5 E9/L Normal 4.0-11.0 [facility] Comment on above: Performed By: #### 1 8854044, 8093045, 9612775, 8511708, 5008697, 63828765, 5193441 #### [facility] [address] [place] [address] Consent for Treatmenton 12 Consent for Treatment [id number] #1.00TIFF Normal [facility] Hep Func Panelon 05-17-2023 Albumin [Mass/Vol] 4.2 g/dL Normal 3.3-5.0 [facility] Comment on above: Performed By: #### 1 0260288, 8630672, 0174542, 5215165, 7528722, 33663371, 7730165 ####[facility] [address] [place] [address] Albumin/Globulin (S) [Mass conc ratio] 1.2 Normal 1.1-2.2 [facility] Comment on above: Performed By: #### 1 2991738, 2342558, 8750166, 9529985, 9771601, 49301118, 0964284 ####[facility] [address] [place] [address] ALP [Catalytic activity/Vol] 58 Int._Unit/L Normal 21-98 [facility] Comment on above: Performed By: #### 1 6093190, 6685261, 6308793, 2924227, 8966436, 11647857, 2448586 ####[facility] [address] [place] [address] ALT No additional P-5'-P [Catalytic activity/Vol] 14 Int._Unit/L Normal 6-46 [facility] Comment on above: Performed By: #### 1 9505172, 8189466, 7021764, 9660410, 6486601, 41016932, 7448496 ####[facility] [address] [place] [address] AST [Catalytic activity/Vol] 21 Int._Unit/L Normal 5-43 [facility] Comment on above: Performed By: #### 1 2350720, 7098621, 8061826, 6534363, 7253758, 89764910, 0695191 ####[facility] [address] [place] [address] Bilirubin [Mass/Vol] 0.6 mg/dL Normal 0.0-1.1 [facility] Comment on above: Performed By: #### 1 5369726, 3815404, 2046931, 1518904, 8993098, 33552304, 3544867 ####[facility] [address] [place] [address] Bilirubin.direct [Mass/Vol] 0.1 mg/dL Normal 0.1-0.4 [facility] Comment on above: Performed By: #### 1 9717567, 0264981, 4571864, 3387800, 4648508, 34233473, 3283021 ####[facility] [address] [place] [address] Bilirubin.indirect [Mass or moles/Vol] 0.5 mg/dL Normal 0.1-0.9 [facility] Comment on above: Performed By: #### 1 6149605, 2088116, 8914994, 7163314, 6601442, 38077964, 7250179 ####[address] [place] [address] Globulin (S) [Mass/Vol] 3.6 g/dL Normal 1.4-4.0 [facility] Comment on above: Performed By: #### 1 3841525, 6385583, 2389344, 0743808, 7745275, 58948978, 3225155 ####[address] [place] [address] Protein [Mass/Vol] 7.8 g/dL Normal 6.0-7.8 [facility] Comment on above: Performed By: #### 1 0743643, 0399491, 7406836, 1779819, 1091192, 20661922, 4819278 ####[address] [place] [address] Lipase Levelon 05-17-2023 Lipase [Catalytic activity/Vol] 57 U/L Normal 13-58 [facility] Comment on above: Performed By: #### 1 4939202, 0644998, 6791288, 0883805, 9646968, 44968498, 4173497 #### [facility] [address] [place] [address] Morphon 05-17-2023 Anisocytosis Ql (Bld) Present Normal Fis [facility] Comment on above: Order Comment: Order Added by Discern Expert. Performed By: #### 1 8012717, 9622867, 3816324, 4293787, 5424105, 89048708, 1365199 #### [facility] [address] [place] [address] Hypochromia Auto Ql (Bld) Present Normal [facility] Comment on above: Order Comment: Order Added by Discern Expert. Performed By: #### 1 8687477, 2667277, 5174216, 7563384, 6986645, 47839492, 0600111 #### [facility] [address] [place] [address] Microcytes Ql (Bld) Present [facility] Comment on above: Order Comment: Order Added by Discern Expert. Performed By: #### 1 1968221, 0034622, 3615066, 1864404, 8684823, 93285749, 4385448 #### [facility] [address] [place] [address] Morphology Edson (Bld) [Interp] See Morphology Normal [facility] Comment on above: Order Comment: Order Added by Discern Expert. Performed By: #### 1 1512568, 2977115, 5772428, 4509476, 7491542, 98694540, 3228795 #### [facility] [address] [place] [address] Ovalocytes LM Ql (Bld) Present Normal [facility] Comment on above: Order Comment: Order Added by Discern Expert. Performed By: #### 1 5463899, 7402610, 5708504, 9081613, 0202472, 72817177, 4181595 #### [facility] [address] [place] [address] U BetaHcg Qualon 05-17-2023 HCG.beta subunit (U) [Moles/Vol] Negative Normal [facility] Comment on above: Performed By: #### 1 1574758, 59512834 ####[facility] [address] [place] [address] eGFRon 05-17-2023 GFR/1.73 sq M.predicted among non-blacks MDRD (S/P/Bld) [Vol rate/Area] 98 mL/min/1.73 m2 Normal >=59 [facility] Comment on above: Order Comment: Order added by Discern Expert. Result Comment: Instruments Sales Representative franklin kidney disease could be indicated at eGFR's of less than 60 mL/min/1.73m2. Kidney failure is indicated at less than 15 mL/min/1.73m2. Performed By: #### 1 4047432, 4155652, 2576401, 8561935, 8960260, 32833242, 3785753 ####[facility] [address] [place] [address] Alanine aminotransferase [En zymatic activity/volume] in Serum or PlasmaOrdered By: Elier Jackson on 04-30-2023 ALT [Catalytic activity/Vol] 15 U/L 7-52 [facility] Albumin [Mass/volume] in Ser um or Plasma by Bromocresol green (BCG) dye binding methoOrdered By: Elier Jackson on 04-30-2023 Albumin BCG dye [Mass/Vol] 4.3 g/dL 3.5-5.7 [facility] Alkaline phosphatase [Enzyma tic activity/volume] in Serum or PlasmaOrdered By: Elier Jackson on 04-30-2023 ALP [Catalytic activity/Vol] 68 U/L 34-104 [facility] Aspartate aminotransferase [ Enzymatic activity/volume] in Serum or PlasmaOrdered By: Elier Jackson on 04-30-2023 AST [Catalytic activity/Vol] 17 U/L 13-39 [facility] Automated erythrocytes count in urine sediment (number/area)Ordered By: Elier Jackson on 04-30-2023 RBC Auto (Urine sed) [#/Area] 5-9 [HPF] 0-4 [facility] Automated leukocytes count i n urine sediment (number/area)Ordered By: Elier Jackson on 04-30-2023 WBC Auto (Urine sed) [#/Area] 0-1 [HPF] 0-4 [facility] Basic Metabolic Panelon 04-13 Anion gap [Moles/Vol] 14.7 mmol/L Normal 6.0-15.0 [facility] Comment on above: Performed By: #### C BC #### [facility] [address] Calcium [Mass/Vol] 9.2 mg/dL Normal 8.6-10.3 [facility] Comment on above: Performed By: #### C BC #### [facility] [address] [place] [address] [place] Chloride [Moles/Vol] 109 mmol/L High 98-107 [facility] Comment on above: Performed By: #### C BC #### [facility] [address] CO2 [Moles/Vol] 20.1 mmol/L Low 21.0-31.0 [facility] Comment on above: Performed By: #### C BC #### [facility] [address] [place] [address] [place] Creatinine [Mass/Vol] 0.65 mg/dL Normal 0.60-1.20 [facility] Comment on above: Performed By: #### C BC #### [facility] [address] [place] [address] [place] Creatinine Clr Calc Pharmacy 107.67 [facility] Comment on above: Performed By: #### C BC #### [facility] [address] [place] [address] [place] GFR/1.73 sq M.predicted MDRD (S/P/Bld) [Vol rate/Area] mL/min/{1.73_m2} [facility] Comment on above: Performed By: #### C BC #### [facility] [address] [place] [address] [place] Glucose [Mass/Vol] 100 mg/dL Normal 70-100 [facility] Comment on above: Result Comment: [facility] Glucose Reference Range is dependent on time and content of last meal. Glucose of more than 200 mg/dL in a nonstressed, ambulatory subject supports the diagnosis of Diabetes Mellitus. ADA recommended reference range Performed By: #### C BC #### [facility] [address] Potassium [Moles/Vol] 3.8 mmol/L Normal 3.5-5.1 [facility] Comment on above: Performed By: #### C BC #### [facility] [address] Sodium [Moles/Vol] 140 mmol/L Normal 136-145 [facility] Comment on above: Performed By: #### C BC #### [facility] [address] Urea nitrogen [Mass/Vol] 6 mg/dL Low 7-25 [facility] Comment on above: Performed By: #### C BC #### [facility] [address] Basophils Auto (Bld) [#/Vol] Ordered By: Elier Jackson on 04-30-2023 Basophils (Bld) [#/Vol] 0.0 10*3/uL 0.0-0.2 [facility] Basophils/100 WBC Auto (Bld) Ordered By: Elier Jackson on 04-30-2023 Basophils/100 WBC (Bld) 1.3 % . F [facility] Bilirubin Test strip Ql (U)O rdered By: Elier Jackson on 04-30-2023 Bilirubin Ql (U) Negative Negative [facility] Bilirubin.direct [Mass/volum e] in Serum or PlasmaOrdered By: Elier Jackson on 04-30-2023 Bilirubin.direct [Mass/Vol] 0.10 mg/dL 0.03-0.18 [facility] Bilirubin.total [Mass/volume ] in Serum or PlasmaOrdered By: Elier Jackson on 04-30-2023 Bilirubin [Mass/Vol] 0.4 mg/dL 0.3-1.0 [facility] Calcium [Mass/volume] in Ser um or PlasmaOrdered By: Elier Jackson on 04-30-2023 Calcium [Mass/Vol] 9.2 mg/dL 8.6-10.3 [facility] Carbon dioxide, total [Moles /volume] in Serum or PlasmaOrdered By: Elier Jackson on 04-30-2023 CO2 [Moles/Vol] 20.1 mmol/L 21.0-31.0 [facility] Chloride [Moles/volume] in S binu or PlasmaOrdered By: Elier Jackson on 04-30-2023 Chloride [Moles/Vol] 109 mmol/L 98-107 [facility] Color Auto (U)Ordered By: Sergio Jackson on 04-30-2023 Color (U) Yellow Yellow [facility] Complete Blood Count Auto Di ffon 04-30-2023 Basophils (Bld) [#/Vol] 0.0 10*3/uL Normal 0.0-0.2 [facility] Comment on above: Result Comment: PERF ORMED BY: [place] [address] PATHOLOGIST LEAD MAN OVER ALL DIES IN PATTERN SHOP FARNAZ ZULETA M.D. Performed By: #### C BC #### [address] Basophils/100 WBC (Bld) 1.3 % Normal . [facility] Comment on above: Performed By: #### C BC #### [address] Eosinophils (Bld) [#/Vol] 0.0 10*3/uL Normal 0.0-0.45 [facility] Comment on above: Performed By: #### C BC #### [address] Eosinophils/100 WBC (Bld) 0.6 % Normal . [facility] Comment on above: Performed By: #### C BC #### [address] Erythrocyte distribution width (RBC) [Ratio] 16.8 % High 11.9-15.3 [facility] Comment on above: Performed By: #### C BC #### [address] Hematocrit (Bld) [Volume fraction] 32.3 % Low 34.0-46.4 [facility] Comment on above: Performed By: #### C BC #### [address] Hemoglobin (Bld) [Mass/Vol] 11.2 g/dL Low 11.8-15.4 [facility] Comment on above: Performed By: #### C BC #### [address] Lymphocytes (Bld) [#/Vol] 1.6 10*3/uL Normal 1.00-4.8 [facility] Comment on above: Performed By: #### C BC #### [address] Lymphocytes/100 WBC (Bld) 44.2 % Normal . [facility] Comment on above: Performed By: #### C BC #### [address] MCH (RBC) [Entitic mass] 30.4 pg Normal 24.7-34.3 [facility] Comment on above: Performed By: #### C BC #### [address] MCV (RBC) [Entitic vol] 87.6 fL Normal 80-100 F [facility] Comment on above: Performed By: #### C BC #### [address] Mean Corpuscular HGB Conc 34.7 g/dL Normal 32.0-35.0 [facility] Comment on above: Performed By: #### C BC #### [address] Monocytes (Bld) [#/Vol] 0.3 10*3/uL Normal 0.0-0.8 [facility] Comment on above: Performed By: #### C BC #### [address] Monocytes/100 WBC (Bld) 16.58 % Normal 0.00-20.00 [facility] Comment on above: Performed By: #### C BC #### [facility] [address] [place] [address] [place] Monocytes/100 WBC (Bld) 7.0 % Normal . [facility] Comment on above: Performed By: #### C BC #### [facility] [address] Neutrophils (Bld) [#/Vol] 1.7 10*3/uL Low 1.8-7.7 [facility] Comment on above: Performed By: #### C BC #### [facility] [address] Neutrophils/100 WBC (Bld) 46.9 % Normal . [facility] Comment on above: Performed By: #### C BC #### [address] NRBC% 0.1 /100{WBC} Normal 0-0.5 [facility] Comment on above: Performed By: #### C BC #### [address] Platelet mean volume (Bld) [Entitic vol] 8.0 fL Normal 6.3-10.7 [facility] Comment on above: Performed By: #### C BC #### [address] Platelets (Bld) [#/Vol] 415 10*3/uL Normal 150-450 [facility] Comment on above: Performed By: #### C BC #### [place] [address] [place] RBC (Bld) [#/Vol] 3.68 10*6/uL Normal 3.60-5.00 [facility] Comment on above: Performed By: #### C BC #### [address] WBC (Bld) [#/Vol] 3.6 10*3/uL Low 3.8-11.6 [facility] Comment on above: Performed By: #### C BC #### [address] Creatinine [Mass/volume] in Serum or PlasmaOrdered By: Elier Jackson on 04-30-2023 Creatinine [Mass/Vol] 0.65 mg/dL 0.60-1.20 [facility] Dipstick and Microscopicon 1 06-30-2022 Appearance (U) Clear Normal Clear [facility] Comment on above: Order Comment: Name Collection Type:: Voided Performed By: #### H CGQNT #### [address] Bacteria,Urine None Seen Normal None Seen [facility] Comment on above: Order Comment: Name Collection Type:: Voided Performed By: #### H CGQNT #### [place] [address] [place] Bilirubin,Urine Negative Normal Negative [facility] Comment on above: Order Comment: Name Collection Type:: Voided Performed By: #### H CGQNT #### [place] [address] [place] Color (U) Yellow Normal Yellow [facility] Comment on above: Order Comment: Name Collection Type:: Voided Performed By: #### H CGQNT #### [address] Glucose Ql (U) Normal Normal Normal [facility] Comment on above: Order Comment: Name Collection Type:: Voided Performed By: #### H CGQNT #### [facility] [address] [place] [address] [place] Hyaline Casts,Urine 0-8 Normal 0-8 [facility] Comment on above: Order Comment: Name Collection Type:: Voided Performed By: #### H CGQNT #### [place] [address] [place] Ketones Ql (U) Negative Normal Negative [facility] Comment on above: Order Comment: Name Collection Type:: Voided Performed By: #### H CGQNT #### [place] [address] [place] Leukocyte esterase Test strip Ql (U) Negative Normal Negative [facility] Comment on above: Order Comment: Name Collection Type:: Voided Performed By: #### H CGQNT #### [address] Nitrite,Urine Negative Normal Negative [facility] Comment on above: Order Comment: Name Collection Type:: Voided Performed By: #### H CGQNT #### [facility] [address] [place] [address] Occult Blood,Urine 2+ High Negative [facility] Comment on above: Order Comment: Name Collection Type:: Voided Performed By: #### H CGQNT #### [facility] [address] [place] [address] pH (U) 5.5 [pH] Normal 5.0-9.0 [facility] Comment on above: Order Comment: Name Collection Type:: Voided Performed By: #### H CGQNT #### [address] Protein,Urine Negative Normal Negative [facility] Comment on above: Order Comment: Name Collection Type:: Voided Performed By: #### H CGQNT #### [address] RBC,Urine 5-9 High 0-4 [facility] Comment on above: Order Comment: Name Collection Type:: Voided Performed By: #### H CGQNT #### [facility] [address] [place] [address] Specificy [place],Urine 1.018 Normal 1.001-1.030 [facility] Comment on above: Order Comment: Name Collection Type:: Voided Performed By: #### H CGQNT #### [facility] [address] [place] [address] Squamous Epithelial Cell,Urine 0-1 Normal 0-2 [facility] Comment on above: Order Comment: Name Collection Type:: Voided Performed By: #### H CGQNT #### [facility] [address] [place] [address] Urobilinogen,Urine Normal Normal Normal [facility] Comment on above: Order Comment: Name Collection Type:: Voided Performed By: #### H CGQNT #### [facility] [address] WBC LM.HPF (Urine sed) [#/Area] 0 /[HPF] Normal 0-4 [facility] Comment on above: Order Comment: Name Collection Type:: Voided Performed By: #### H CGQNT #### [facility] [address] [place] [address] Eosinophils Auto (Bld) [#/Vo l]Ordered By: Elier Jackson on 04-30-2023 Eosinophils (Bld) [#/Vol] 0.0 10*3/uL 0.0-0.45 [facility] Eosinophils/100 WBC Auto (Bl d)Ordered By: Elier Jackson on 04-30-2023 Eosinophils/100 WBC (Bld) 0.6 % . [facility] Erythrocyte distribution wid th Auto (RBC) [Ratio]Ordered By: Elier Jackson on 04-30-2023 Erythrocyte distribution width (RBC) [Ratio] 16.8 % 11.9-15.3 [facility] Globulin Calc (S) [Mass/Vol] Ordered By: Elier Jackson on 04-30-2023 Globulin (S) [Mass/Vol] 3.3 g/dL F [facility] Glucose [Mass/volume] in Ser um or PlasmaOrdered By: Elier Jackson on 04-30-2023 Glucose [Mass/Vol] 100 mg/dL 70-100 [facility] Comment on above: ADA recommended refe rence rangeRandom Glucose Reference Range is dependent on time and content of last meal. Glucose of more than 200 mg/dL in a nonstressed, ambulatory subject supports the diagnosis of Diabetes Mellitus. HCG ( test) IAbebeto d Ql (U)Ordered By: Elier Jackson on 04-30-2023 HCG ( test) Ql (U) Negative [facility] HCG,Urineon 04-30-2023 Beta HCG ( test) Ql (U) Negative Normal [facility] Comment on above: Order Comment: Name Collection Type:: Voided Result Comment: PERF ORMED BY: [place] [address] PATHOLOGIST LEAD MAN OVER ALL DIES IN PATTERN SHOP FARNAZ ZULETA M.D. Performed By: #### H CGQNT #### [address] Hematocrit Auto (Bld) [Volum e fraction]Ordered By: Elier Jackson on 04-30-2023 Hematocrit (Bld) [Volume fraction] 32.3 % 34.0-46.4 [facility] Hemoglobin [Mass/volume] in BloodOrdered By: Elier Jackson on 04-30-2023 Hemoglobin (Bld) [Mass/Vol] 11.2 g/dL 11.8-15.4 [facility] Hepatic Panelon 04-30-2023 Albumin [Mass/Vol] 4.3 g/dL Normal 3.5-5.7 [facility] Comment on above: Performed By: #### C BC #### [address] Albumin/Globulin [Mass ratio] 1.3 {ratio} Normal [facility] Comment on above: Performed By: #### C BC #### [address] ALP [Catalytic activity/Vol] 68 U/L Normal 34-104 [facility] Comment on above: Performed By: #### C BC #### [place] [address] [place] ALT [Catalytic activity/Vol] 15 U/L Normal 7-52 [facility] Comment on above: Performed By: #### C BC #### [place] [address] [place] AST [Catalytic activity/Vol] 17 U/L Normal 13-39 [facility] Comment on above: Performed By: #### C BC #### [place] [address] [place] Bilirubin [Mass/Vol] 0.4 mg/dL Normal 0.3-1.0 [facility] Comment on above: Performed By: #### C BC #### [facility] [address] Bilirubin,Indirect 0.3 mg/dL Normal [facility] Comment on above: Performed By: #### C BC #### [facility] [address] Bilirubin.indirect [Mass/Vol] 0.10 mg/dL Normal 0.03-0.18 [facility] Comment on above: Performed By: #### C BC #### [facility] [address] Globulin (S) [Mass/Vol] 3.3 g/dL Normal F [facility] Comment on above: Performed By: #### C BC #### [address] Protein [Mass/Vol] 7.6 g/dL Normal 6.4-8.9 [facility] Comment on above: Performed By: #### C BC #### [address] Ketones Auto test strip (U) [Mass/Vol]Ordered By: Elier Jackson on 04-30-2023 Ketones (U) [Mass/Vol] Negative Negative [facility] - UrinalysisOrder ed By: Elier Jackson on 04-30-2023 Hyaline casts LM Ql (Urine sed) 0-8 [LPF] 0-8 [facility] Leukocytes [#/volume] correc flo for nucleated erythrocytes in Blood by Automated counOrdered By: Elier Jackson on 04-30-2023 WBC corrected for nucl RBC Auto (Bld) [#/Vol] 3.6 10*3/uL 3.8-11.6 [facility] Lipaseon 04-30-2023 Lipase [Catalytic activity/Vol] 31.0 U/L Normal 11.0-82.0 [facility] Comment on above: Result Comment: PERF ORMED BY: [place] [address] PATHOLOGIST LEAD MAN OVER ALL DIES IN PATTERN SHOP JIANLAN SUN M.D. Performed By: #### C BC #### [facility] [address] Lipase [Enzymatic activity/v olume] in Serum or PlasmaOrdered By: Elier Jackson on 04-30-2023 Lipase [Catalytic activity/Vol] 31.0 U/L 11.0-82.0 [facility] Lymphocytes Auto (Bld) [#/Vo l]Ordered By: Eiler Jackson on 04-30-2023 Lymphocytes (Bld) [#/Vol] 1.6 10*3/uL 1.00-4.8 [facility] Lymphocytes/100 WBC Auto (Bl d)Ordered By: Elire Jackson on 04-30-2023 Lymphocytes/100 WBC (Bld) 44.2 % . [facility] MCH Auto (RBC) [Entitic mass ]Ordered By: Elier Jackson on 04-30-2023 MCH (RBC) [Entitic mass] 30.4 pg 24.7-34.3 [facility] MCHC Auto (RBC) [Mass/Vol]Or dered By: Elier Jackson on 04-30-2023 MCHC (RBC) [Mass/Vol] 34.7 g/dL 32.0-35.0 [facility] MCV Auto (RBC) [Entitic vol] Ordered By: Elier Jackson on 04-30-2023 MCV (RBC) [Entitic vol] 87.6 fL 80-100 [facility] Monocyte distribution width [Entitic volume] in Blood by AutomatedOrdered By: Elier Jackson on 04-30-2023 Monocyte distribution width Auto (Bld) [Entitic vol] 16.58 % 0.00-20.00 [facility] Monocytes Auto (Bld) [#/Vol] Ordered By: Elier Jackson on 04-30-2023 Monocytes (Bld) [#/Vol] 0.3 10*3/uL 0.0-0.8 [facility] Monocytes/100 WBC Auto (Bld) Ordered By: Elier Jackson on 04-30-2023 Monocytes/100 WBC (Bld) 7.0 % . [facility] Neutrophils Auto (Bld) [#/Vo l]Ordered By: Elier Jackson on 04-30-2023 Neutrophils (Bld) [#/Vol] 1.7 10*3/uL 1.8-7.7 [facility] Neutrophils/100 WBC Auto (Bl d)Ordered By: Elier Jackson on 04-30-2023 Neutrophils/100 WBC (Bld) 46.9 % . [facility] Nitrite Test strip Ql (U)Ord ered By: Elier Jackson on 04-30-2023 Nitrite Ql (U) Negative Negative [facility] No Panel InformationOrdered By: Elier Jackson on 04-30-2023 Estimated GFR (CKD-EPI) > 60.0 mL/Min [facility] Creatinine Clearance (Chem 107.67 [facility] Nucleated erythrocytes [Pres ence] in Blood by Automated countOrdered By: Elier Jackson on 04-30-2023 Nucleated RBC Auto Ql (Bld) 0.1 /100{WBC} 0-0.5 [facility] Platelet mean volume Auto (B ld) [Entitic vol]Ordered By: Elier Jackson on 04-30-2023 Platelet mean volume (Bld) [Entitic vol] 8.0 fL 6.3-10.7 [facility] Platelets Auto (Bld) [#/Vol] Ordered By: Elier Jackson on 04-30-2023 Platelets (Bld) [#/Vol] 415 10*3/uL 150-450 [facility] Potassium [Moles/volume] in Serum or PlasmaOrdered By: Elier Jackson on 04-30-2023 Potassium [Moles/Vol] 3.8 mmol/L 3.5-5.1 [facility] Protein Auto test strip (U) [Mass/Vol]Ordered By: Elier Jackson on 04-30-2023 Protein (U) [Mass/Vol] Negative Negative [facility] Protein [Mass/volume] in Ser um or PlasmaOrdered By: Elier Jackson on 04-30-2023 Protein [Mass/Vol] 7.6 g/dL 6.4-8.9 [facility] RBC Auto (Bld) [#/Vol]Ordere d By: Elier Jackson on 04-30-2023 RBC (Bld) [#/Vol] 3.68 10*6/uL 3.60-5.00 [facility] Serum or plasma albumin/glob ulin mass ratioOrdered By: Elier Jackson on 04-30-2023 Albumin/Globulin [Mass ratio] 1.3 {ratio} [facility] Serum or plasma anion gap de terminationOrdered By: Elier Jackson on 04-30-2023 Anion gap [Moles/Vol] 14.7 mmol/L 6.0-15.0 [facility] Serum or plasma non-glucuron idated bilirubin measurement (mass/volume)Ordered By: Elier Jackson on 04-30-2023 Bilirubin.indirect [Mass/Vol] 0.3 mg/dL [facility] Sodium [Moles/volume] in Ser um or PlasmaOrdered By: Elier Jackson on 04-30-2023 Sodium [Moles/Vol] 140 mmol/L 136-145 [facility] Specific gravity Auto test s trip (U) [Rel density]Ordered By: Elier Jackson on 04-30-2023 Specific gravity (U) [Rel density] 1.018 1.001-1.030 [facility] Squamous epithelial cells de tection in urine sediment by light microscopyOrdered By: Elier Jackson on 04-30-2023 Epithelial cells.squamous LM Ql (Urine sed) 0-1 [HPF] 0-2 [facility] US pelvic completeon 023 US pelvic complete [facility] [place] [address] Ultrasound Report Signed Patient: Livia Noyola MR#: [id number] : 1985 Acct:[id number] Age/Sex: 38 / F ADM Date: 04/30/23 Loc: ER Room: Type: [facility] ER Attending Dr: Ordering Provider: Elier Jackson DO Date of Service: 04/30/23 US/US pelvic complete: L pelvic pain ([id number]) US/US transvaginal: LT PELVIC PAIN Copies to: [...] torsion. Impression dictated by: Dennis Betancur Jr., Levi04/30/2023 6:24 PM Dictation Location: [place] [address] Tech: Brooke Naveen Transcribed By: [facility] 04/30/231823 Dictated By: Dennis Betancur Jr, DO 04/30/231820 Signed By: 04/30/231823 Normal [facility] Urea nitrogen [Mass/volume] in Serum or PlasmaOrdered By: Elier Jackson on 04-30-2023 Urea nitrogen [Mass/Vol] 6 mg/dL 7- [facility] Urine bacteria detection by automated methodOrdered By: Elier Jackson on 04-30-2023 Bacteria Auto Ql (U) None seen None Seen [facility] Urine clarity by refractomet ry automatedOrdered By: Elier Jackson on 04-30-2023 Clarity Refractometry automated (U) Clear Clear [facility] Urine glucose measurement by automated test strip (mass/volume)Ordered By: Elier Jackson on 04-30-2023 Glucose Auto test strip (U) [Mass/Vol] Normal mg/dL Normal [facility] Urine hemoglobin detection b y automated test stripOrdered By: Elier Jackson on 04-30-2023 Hemoglobin Auto test strip Ql (U) 2+ Negative [facility] Urine leukocyte esterase det ection by automated test stripOrdered By: Elier Jackson on 04-30-2023 Leukocyte esterase Auto test strip Ql (U) Negative Negative [facility] Urobilinogen Auto test strip (U) [Mass/Vol]Ordered By: Elier Manuel on 04-30-2023 Urobilinogen (U) [Mass/Vol] Normal mg/dL Normal [facility] WBC Auto (Bld) [#/Vol]Ordere d By: Elier Manuel on 04-30-2023 WBC (Bld) [#/Vol] 3.6 10*3/uL 3.8-11.6 [facility] pH Auto test strip (U)Ordere d By: Elier Manuel on 04-30-2023 pH (U) 5.5 [pH] 5.0-9.0 [facility] Auto Diffon 04-24-2023 Basophils/100 WBC (Bld) 0.3 % Normal 0.0-2.0 [facility] Comment on above: Order Comment: Order Added by Discern Expert. Performed By: #### 2 924782, 3872610, 9469811, [id number], [id number] #### [facility] [address] [place] [address] Basophils/Leukocytes Auto (Bld) [Pure # fraction] 0.0 E9/L Normal 0.0-0.2 [facility] Comment on above: Order Comment: Order Added by Discern Expert. Performed By: #### 2 729165, 3630303, 2592784, 90135088, [id number] #### [facility] [address] [place] [address] Eosinophils/100 WBC (Bld) 0.9 % Normal 0.0-8.0 [facility] Comment on above: Order Comment: Order Added by Discern Expert. Performed By: #### 2 154352, 8706282, 7685707, 94193777, 40327188 #### [facility] [address] [place] [address] Eosinophils/Leukocytes Auto (Bld) [Pure # fraction] 0.0 E9/L Normal 0.0-0.5 [facility] Comment on above: Order Comment: Order Added by Discern Expert. Performed By: #### 2 882499, 2704675, 0076308, 84982678, [id number] #### [facility] [address] [place] [address] Lymphocytes/100 WBC (Bld) 49.9 % Normal 14.0-50.0 [facility] Comment on above: Order Comment: Order Added by Discern Expert. Performed By: #### 2 597359, 5598639, 3565363, 65828213, 17263918 #### [facility] [address] [place] [address] Lymphocytes/Leukocytes Auto (Bld) [Pure # fraction] 2.3 E9/L Normal 1.0-4.0 [facility] Comment on above: Order Comment: Order Added by Discern Expert. Performed By: #### 2 559719, 2344881, 9362511, 91410734, 74462081 #### [facility] [address] [place] [address] Monocytes/100 WBC (Bld) 7.1 % Normal 4.0-14.0 [facility] Comment on above: Order Comment: Order Added by Discern Expert. Performed By: #### 2 417629, 4805862, 5427616, 98407988, 34199428 #### [facility] [address] [place] [address] Monocytes/Leukocytes Auto (Bld) [Pure # fraction] 0.3 E9/L Normal 0.2-1.0 [facility] Comment on above: Order Comment: Order Added by Discern Expert. Performed By: #### 2 114981, 0723449, 3942415, 47877343, 24134055 #### [facility] [address] [place] [address] Neutrophils/100 WBC (Bld) 41.8 % Normal 36.0-75.0 [facility] Comment on above: Order Comment: Order Added by Discern Expert. Performed By: #### 2 422047, 7972558, 5972564, 17760271, 35899575 #### [facility] [address] [place] [address] Neutrophils/Leukocytes Auto (Bld) [Pure # fraction] 2.0 E9/L Normal 2.0-7.5 [facility] Comment on above: Order Comment: Order Added by Discern Expert. Performed By: #### 2 018297, 0403923, 8203000, 78141190, 94976894 #### [facility] [address] [place] [address] B hCG Qualon 04-24-2023 Beta HCG ( test) Ql Negative Normal [facility] Comment on above: Performed By: #### 2 681629, 7899942, 4603615, 39524040, 70154802 #### [facility] [address] [place] [address] BMPon 04-24-2023 Creatinine [Mass/Vol] 0.7 mg/dL Normal 0.5-1.3 [facility] Comment on above: Performed By: #### 2 891014, 1719106, 7366010, 27999046, 53583104 #### [facility] [address] [place] [address] Urea nitrogen [Mass/Vol] 6 mg/dL Normal 5-21 [facility] Comment on above: Performed By: #### 2 276872, 3093292, 1124854, 00920526, 18857666 #### [facility] [address] [place] [address] Urea nitrogen/Creatinine [Mass ratio] 9 No Units Low 10-20 [facility] Comment on above: Performed By: #### 2 222652, 6142473, 8291623, 06840023, 20568673 #### [facility] [address] [place] [address] Anion gap [Moles/Vol] 14 mmol/L Normal 6-16 [facility] Comment on above: Performed By: #### 2 732657, 8565999, 4646930, 88331532, 74331213 #### [facility] [address] [place] [address] Calcium [Mass/Vol] 9.4 mg/dL Normal 8.9-11.1 [facility] Comment on above: Performed By: #### 2 545353, 3086494, 0628162, 81860857, 24281185 #### [facility] [address] [place] [address] Chloride [Moles/Vol] 105 mmol/L Normal 101-111 [facility] Comment on above: Performed By: #### 2 524073, 8747635, 8468760, 82234659, 35684220 #### [facility] [address] [place] [address] CO2 [Moles/Vol] 23 mmol/L Normal 21-31 [facility] Comment on above: Performed By: #### 2 271938, 8731979, 3426069, 42828279, 44734295 #### [facility] [address] [place] [address] Glucose [Mass/Vol] 95 mg/dL Normal 55-199 [facility] Comment on above: Result Comment: If t his glucose result represents a fasting glucose, interpretation should refer to the following reference range: 55-99 mg/dL Performed By: #### 2 037643, 6059292, 6916058, 29244486, 74737660 #### [facility] [address] [place] [address] Potassium [Moles/Vol] 3.8 mmol/L Normal 3.5-5.3 [facility] Comment on above: Performed By: #### 2 747775, 7540396, 0356255, 01766818, 50930700 #### [facility] [address] [place] [address] Sodium [Moles/Vol] 138 mmol/L Normal 135-145 [facility] Comment on above: Performed By: #### 2 934911, 6765965, 3359836, 52320980, 47815381 #### [facility] [address] [place] [address] CBC w/ Auto Diffon 3 Erythrocyte distribution width (RBC) [Ratio] 15.9 % High 10.9-14.2 [facility] Comment on above: Performed By: #### 2 989257, 3938372, 3960697, 02979504, 49575383 #### [facility] [address] [place] [address] Hematocrit (Bld) [Volume fraction] 33.7 % Low 34.0-46.0 [facility] Comment on above: Performed By: #### 2 362017, 6144171, 4504897, 60210344, 24082063 #### [facility] [address] [place] [address] Hemoglobin (Bld) [Mass/Vol] 11.7 g/dL Low 12.0-16.0 [facility] Comment on above: Performed By: #### 2 566056, 2464471, 8091524, 99566236, 41195556 #### [facility] [address] [place] [address] MCH (RBC) [Entitic mass] 29.7 pg Normal 27.0-34.0 [facility] Comment on above: Performed By: #### 2 757998, 6733925, 8883026, 54648709, 00774663 #### [facility] [address] [place] [address] MCHC (RBC) [Mass/Vol] 34.7 g/dL Normal 31.4-36.0 [facility] Comment on above: Performed By: #### 2 297392, 7468977, 2390428, 37096927, 56396832 #### [facility] [address] [place] [address] MCV (RBC) [Entitic vol] 85.8 fL Normal 80.0-100.0 [facility] Comment on above: Performed By: #### 2 206685, 1325923, 9257189, 41797028, 81118616 #### [facility] [address] [place] [address] Platelet mean volume (Bld) [Entitic vol] 8.2 fL Normal 6.4-10.8 [facility] Comment on above: Performed By: #### 2 468771, 6500116, 1769613, 89793757, 79671715 #### [facility] [address] [place] [address] Platelets (Bld) [#/Vol] 398.0 E9/L Normal 150.0-500.0 [facility] Comment on above: Performed By: #### 2 505270, 6701758, 6592490, 32070910, 58407724 #### [facility] [address] [place] [address] RBC (Bld) [#/Vol] 3.9 E12/L Low 4.3-5.9 [facility] Comment on above: Performed By: #### 2 773431, 6338343, 3439015, 46152153, 41240687 #### [facility] [address] [place] [address] WBC corrected for nucl RBC Auto (Bld) [#/Vol] 4.7 E9/L Normal 4.0-11.0 [facility] Comment on above: Performed By: #### 2 398781, 9447672, 4409762, 02667170, 72660826 #### [facility] [address] [place] [address] CHEMISTRYOrdered By: SYSTEM SYSTEM on 04-24-2023 Anion gap [Moles/Vol] 14 mmol/L Normal 6 - 16 mEq/L [facility] Calcium [Mass/Vol] 9.4 mg/dL Normal 8.9 - 11. 1 mg/dL [facility] Chloride [Moles/Vol] 105 mmol/L Normal 101 - 1 11 mmol/L [facility] CO2 [Moles/Vol] 23 mmol/L Normal 21 - 31 mmol/L [facility] Creatinine [Mass/Vol] 0.7 mg/dL Normal 0.5 - 1.3 mg/dL [facility] GFR/1.73 sq M.predicted among non-blacks MDRD (S/P/Bld) [Vol rate/Area] 115 mL/min/1.73 m2 Normal >=59mL/min/1 .73 m2 [facility] Chem S Comment on above: Interpretive Data: C hronic kidney disease could be indicated at eGFR's of less than 60 mL/min/1.73m2. Kidney failure is indicated at less than 15 mL/min/1.73m2. Glucose [Mass/Vol] 95 mg/dL Normal 55 - 199 mg/dL [facility] Remisol Comment on above: Interpretive Data: I f this glucose result represents a fasting glucose, interpretation should refer to the following reference range: 55-99 mg/dL Potassium [Moles/Vol] 3.8 mmol/L Normal 3.5 - 5.3 mmol/L [facility] Sodium [Moles/Vol] 138 mmol/L Normal 135 - 145 mmol/L [facility] Remisol Urea nitrogen [Mass/Vol] 6 mg/dL Normal 5 - 21 mg/dL [facility] Remisol Urea nitrogen/Creatinine [Mass ratio] 9 mg/mg Low 10 - 20 [facility] Remisol CT Abdomen/Pelvis w/ Contras [...] 300 Contrast amount in ml's: 100 Normal [facility] Consent for Treatmenton 04-13 Consent for Treatment [id number] 31 [id number] #1.00TIFF Normal [facility] Discharge Instructionson Discharge Instructions [id number] 110 [id number] #1.00TIFF Normal [facility] ED Clinical Summaryon 2022 ED Clinical Summary [place] [id number] ED Clinical Summary Person Information Name: LIVIA NOYOLA/[facility] Age: 38 Years : 1985 Sex: Female Language: Ugandan PCP: BETTIE MIRELES Marital Status: Visit Id: [...] 04/24/2023 16:04:18 ADDRESS: [address] [place] [id number] PHYS DOC NOTES: MEDICAL INFORMATION: Prescriptions Given: New Medications [id number], [address], [place] [id number], [phone] oxycodone (oxyCODONE 5 mg Cap) 1 Capsules [...] up: With: Address: When: YOUR OBGYN at [facility] In 3 days 04/27/2023 Comments: Seek [...] Abdominal pain, acute, left lower quadrant Normal [facility] ED Note-Physicianon 04-24-20 ED Note-Physician Basic Information [...] is benign. I did review on clinic Leeanna. She has a visit at [facility] for similar symptoms in the middle of [...] for home. 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 Return precautions were discussed. All questions were answered. The patient was discharged home. Assessment/Plan Abdominal pain, acute, left lower quadrant (R10.32: Left lower quadrant pain) Ordered: oxycodone, 5 mg = 1 cap(s), Oral, q6hr, PRN Pain 8-10, X 3 day(s), # 12 cap(s), Refills(s) 0, Pharmacy: [id number], 165.1, cm, 04/24/23 13:32:00 EST, Height/Length [...] With When Contact Information YOUR OBGYN at [facility] In 3 days 04/27/2023 EST Additional [...] follow-up with (more content not included)... Normal [facility] Comment on above: Result Comment: Elec tronically [...] these instructions at home: Medicines ? Take qgcx-sdb-hmrpyhu and prescription medicines only as told by [...] your condition for any changes. ? Take fhfd-mzb-uhtublp and prescription medicines only as told by [...] provider. Document Revised: 07/18/2020 Document Reviewed: 10/08/2019 [employer] Patient Education ? 2022 [employer]. [facility] ED Patient Summaryon 023 ED Patient Summary [place] [id number] Patient Discharge Instructions Person Information Name: LIVIA NOYOLA Age: 38 Years Arrival Date: 04/24/2023 13:12:30 Discharge Diagnosis: Abdominal pain, acute, left lower quadrant Primary Care Physician: BETTIE MIRELES Provider Information Primary Provider: Jignesh Dumont DO [employer] Buyer:Shazia The exam and treatment you received in the Emergency Department were for an urgent problem and are not intended as complete care. It is important that you follow up with a doctor, nurse practitioner, or physician?s office services assistant for ongoing care. If your symptoms [...] Instructions: With: Address: When: YOUR OBGYN at [facility] In 3 days 04/27/2023 Comments: Seek [...] opioids can be used to help relieve toerhssw-oo-fslnyn pain and are often prescribed following a [...] Talk about (more content not included)... Normal [facility] HEMATOLOGYOrdered By: SYSTEM SYSTEM on 04-24-2023 Basophils/100 WBC (Bld) 0.3 [...] 29.7 pg Normal 27.0 - 34.0 pg [facility] HemeAutoSS MCHC (RBC) [Mass/Vol] 34.7 g/dL Normal 31.4 - 36.0 gm/dL [facility] HemeAutoSS MCV (RBC) [Entitic vol] 85.8 fL Normal 80.0 - 100.0 fL [facility] HemeAutoSS Platelet mean volume (Bld) [Entitic vol] 8.2 fL Normal 6.4 - 10.8 fL [facility] HemeAutoSS Platelets (Bld) [#/Vol] 398.0 E9/L Normal 150. 0 - 500.0 E9/L [facility] HemeAutoSS RBC (Bld) [#/Vol] 3.9 E12/L Low 4.3 - 5.9 E12/L [facility] HemeAutoSS WBC corrected for nucl RBC Auto (Bld) [#/Vol] 4.7 E9/L Normal 4.0 - 11.0 E9/L [facility] HemeAutoSS SEROLOGYOrdered By: Brooke Guthrie on 04-24-2023 Beta HCG ( test) Ql Negative (04/24/23 1:55 PM) Normal [facility] Man Sero UA With Cult Reflexon 2022 Bacteria LM Ql (Urine sed) TRACE Normal Trace [facility] Comment on above: Performed By: #### 2 029786, 3261106, 0537985, [id number], [id number] #### [facility] [address] [place] [address] Bilirubin Ql (U) Negative Normal Negative [facility] Comment on above: Performed By: #### 2 468647, 5462038, 5712834, [id number], [id number] #### [facility] [address] [place] [address] Clarity (U) CLEAR Normal Clear [facility] Comment on above: Performed By: #### 2 419582, 3783138, 9900913, 60150664, [id number] #### [facility] [address] [place] [address] Color (U) STRAW Abnormal Yellow [facility] Comment on above: Performed By: #### 2 237857, 3654141, 1795647, 33240215, [id number] #### [facility] [address] [place] [address] Epithelial cells.squamous LM.HPF (Urine sed) [#/Area] 3-4 Normal 0-2 [facility] Comment on above: Performed By: #### 2 609905, 5463502, 2110357, 38388542, 55894986 #### [facility] [address] [place] [address] Glucose Test strip (U) [Mass/Vol] Negative Normal Negative [facility] Comment on above: Performed By: #### 2 755679, 1546385, 7487526, 16181659, 45798997 #### [facility] [address] [place] [address] Hemoglobin Ql (U) Negative Normal Negative [facility] Comment on above: Performed By: #### 2 915280, 7331882, 8697004, 46218264, [id number] #### [facility] [address] [place] [address] Ketones (U) [Mass/Vol] Negative Normal Negative [facility] Comment on above: Performed By: #### 2 579740, 5576615, 6553149, 19140480, 35810348 #### [facility] [address] [place] [address] [place].plasma/[place]. RBC (Bld) [Mass ratio] 0-3 Normal 0-3 [facility] Comment on above: Performed By: #### 2 314294, 8791853, 1461388, 58467759, 29167036 #### [facility] [address] [place] [address] Nitrite Ql (U) Negative Normal Negative [facility] Comment on above: Performed By: #### 2 280850, 8785479, 3083560, 32410726, 99427799 #### [facility] [address] [place] [address] pH (U) 7.0 [pH] Invalid Interpretation Code 5.0-9.0 [facility] Comment on above: Performed By: #### 2 156359, 4214658, 1159445, 25490304, 98651960 #### [facility] [address] [place] [address] Protein (U) [Mass/Vol] Negative Normal Negative [facility] Comment on above: Performed By: #### 2 157225, 2915699, 9314442, 32802169, 42046181 #### [facility] [address] [place], [place] [address] Specific gravity (U) [Rel density] <=1.005 Invalid Interpretation Code 1.005-1.030 [facility] Comment on above: Performed By: #### 2 215790, 5940431, 2523553, 86919389, [id number] #### [facility] [address] [place] [address] Type of Urine collection method Clean Catch Normal [facility] Comment on above: Performed By: #### 2 663479, 0938003, 5649084, 65416877, 75573685 #### [facility] [address] [place] [address] Urobilinogen Qn (U) 0.2 {Ivone'U}/dL Normal 0.0-1.0 [facility] Comment on above: Performed By: #### 2 919521, 3343674, 5649652, 10893531, 27728820 #### [facility] [address] [place] [address] WBC Auto Ql (U) TRACE Abnormal Negative [facility] Comment on above: Performed By: #### 2 409180, 0063203, 0140685, 80763777, 86988525 #### [facility] [address] [place] [address] WBC LM.HPF (Urine sed) [#/Area] 0-5 Normal 0-5 [facility] Comment on above: Performed By: #### 2 993221, 2501092, 2983867, 44216897, 67037640 #### [facility] [address] [place] [address] URINALYSISOrdered By: Chance Guthrie on 04-24-2023 Bacteria LM Ql (Urine sed) Trace /HPF Normal Trace/HPF [facility] UA Auto SS Bilirubin Ql (U) Negative (04/24/23 2:56 PM) Normal Negative [facility] UA Auto SS Clarity (U) Clear (04/24/23 2:56 PM) Normal Clear [facility] UA Auto SS Color (U) Straw *ABN* (04/24/23 2:56 PM) Invalid Interpretation Code Yellow [facility] UA Auto SS Epithelial cells.squamous LM.HPF (Urine sed) [#/Area] 3-4 /HPF Normal 0-2/HPF [facility] UA Aut o SS Glucose Test strip (U) [Mass/Vol] Negative (04/24/23 2:56 PM) Normal Negative [facility] UA Auto SS Hemoglobin Ql (U) Negative (04/24/23 2:56 PM) Normal Negative [facility] UA Auto SS Ketones (U) [Mass/Vol] Negative (04/24/23 2:56 PM) Normal Negative [facility] UA Auto SS [place].plasma/[place]. RBC (Bld) [Mass ratio] 0-3 /HPF Normal [...] [facility] UA Auto SS Urobilinogen Qn (U) 0.2002128 {Ivone'U}/dL Normal 0.0 - 1.0 EU/dL [facility] UA Auto SS WBC Auto Ql (U) Trace *ABN* (04/24/23 2:56 PM) Invalid Interpretation Code Negative [facility] UA Auto SS WBC LM.HPF (Urine sed) [#/Area] 0-5 /HPF Normal 0-5/HPF [facility] UA Auto SS eGFRon 04-24-2023 GFR/1.73 sq M.predicted among non-blacks MDRD (S/P/Bld) [Vol rate/Area] 115 mL/min/1.73 m2 Normal >=59 [facility] Comment on above: Order Comment: Order added by Discern Expert. Result Comment: Instruments Sales Representative franklin kidney disease could be indicated at eGFR's of less than 60 mL/min/1.73m2. Kidney failure is indicated at less than 15 mL/min/1.73m2. Performed By: #### 2 966115, 6159189, 2712401, 99372630, [id number] #### [facility] [address] [place] [address] Anisocytosis LM Ql (Bld)Orde red By: Ming Childress on 04-02-2023 Anisocytosis Ql (Bld) Moderate [facility] Automated erythrocytes count in urine sediment (number/area)Ordered By: Ming Childress on 04-02-2023 RBC Auto (Urine sed) [#/Area] 20-49 [HPF] 0-4 [facility] Automated leukocytes count i n urine sediment (number/area)Ordered By: Ming Childress on 04-02-2023 WBC Auto (Urine sed) [#/Area] 3-4 [HPF] 0-4 [facility] Basic Metabolic Panelon 03-14 Anion gap [Moles/Vol] 14.2 mmol/L Normal 6.0-15.0 [facility] Comment on above: Performed By: #### H CGQNT #### [facility] [address] [place] [address] [place] Calcium [Mass/Vol] 9.2 mg/dL Normal 8.6-10.3 [facility] Comment on above: Performed By: #### H CGQNT #### [facility] [address] [place] [address] [place] Chloride [Moles/Vol] 108 mmol/L High 98-107 [facility] Comment on above: Performed By: #### H CGQNT #### [facility] [address] [place] [address] [place] CO2 [Moles/Vol] 18.5 mmol/L Low 21.0-31.0 [facility] Comment on above: Performed By: #### H CGQNT #### [facility] [address] [place] [address] [place] Creatinine [Mass/Vol] 0.84 mg/dL Normal 0.60-1.20 [facility] Comment on above: Performed By: #### H CGQNT #### [place] [address] [place] Creatinine Clr Calc Pharmacy 97.72 Normal [facility] Comment on above: Result Comment: PERF ORMED BY: [place] [address] PATHOLOGIST LEAD MAN OVER ALL DIES IN PATTERN SHOP FARNAZ ZULETA M.D. Performed By: #### H CGQNT #### [place] [address] [place] GFR/1.73 sq M.predicted MDRD (S/P/Bld) [Vol rate/Area] mL/min/{1.73_m2} Normal [facility] Comment on above: Performed By: #### H CGQNT #### [address] Glucose [Mass/Vol] 94 mg/dL Normal 70-100 [facility] Comment on above: Result Comment: [facility] [place] Glucose Reference Range is dependent on time and content of last meal. Glucose of more than 200 mg/dL in a nonstressed, ambulatory subject supports the diagnosis of Diabetes Mellitus. ADA recommended reference range Performed By: #### H CGQNT #### [facility] [address] [place] [address] [place] Potassium [Moles/Vol] 3.7 mmol/L Normal 3.5-5.1 [facility] Comment on above: Performed By: #### H CGQNT #### [facility] [address] [place] [address] [place] Sodium [Moles/Vol] 137 mmol/L Normal 136-145 [facility] Comment on above: Performed By: #### H CGQNT #### [place] [address] [place] Urea nitrogen [Mass/Vol] 9 mg/dL Normal 7-25 [facility] Comment on above: Performed By: #### H CGQNT #### [facility] [address] [place] [address] [place] Basophils Auto (Bld) [#/Vol] Ordered By: Ming Childress on 04-02-2023 Basophils (Bld) [#/Vol] N/A F [facility] Basophils/100 WBC Auto (Bld) Ordered By: Ming Childress on 04-02-2023 Basophils/100 WBC (Bld) N/A F [facility] Basophils/100 WBC Manual cnt (Bld)Ordered By: iMng Childress on 04-02-2023 Basophils/100 WBC (Bld) 1 % 0-2 F [facility] Bilirubin Test strip Ql (U)O rdered By: Ming Childress on 04-02-2023 Bilirubin Ql (U) Negative Negative [facility] Calcium [Mass/volume] in Ser um or PlasmaOrdered By: Ming Childress on 04-02-2023 Calcium [Mass/Vol] 9.2 mg/dL 8.6-10.3 [facility] Carbon dioxide, total [Moles /volume] in Serum or PlasmaOrdered By: Ming Childress on 04-02-2023 CO2 [Moles/Vol] 18.5 mmol/L 21.0-31.0 [facility] Chloride [Moles/volume] in S binu or PlasmaOrdered By: Ming Childress on 04-02-2023 Chloride [Moles/Vol] 108 mmol/L 98-107 [facility] Color Auto (U)Ordered By: Carmen Childress on 04-02-2023 Color (U) Yellow Yellow [facility] Creatinine [Mass/volume] in Serum or PlasmaOrdered By: Ming Childress on 04-02-2023 Creatinine [Mass/Vol] 0.84 mg/dL 0.60-1.20 [facility] Diff and CBCon 04-02-2023 Anisocytosis Ql (Bld) Moderate Normal [facility] Comment on above: Performed By: #### H CGQNT #### [facility] [address] [place] [address] [place] Basophils/100 WBC (Bld) 1 % Normal 0-2 [facility] Comment on above: Performed By: #### H CGQNT #### [address] Eosinophils/100 WBC (Bld) 4 % High 1-3 [facility] Comment on above: Performed By: #### H CGQNT #### [address] Erythrocyte distribution width (RBC) [Ratio] 15.2 % Normal 11.9-15.3 [facility] Comment on above: Performed By: #### H CGQNT #### [address] Hematocrit (Bld) [Volume fraction] 36.1 % Normal 34.0-46.4 [facility] Comment on above: Performed By: #### H CGQNT #### [address] Hemoglobin (Bld) [Mass/Vol] 11.5 g/dL Low 11.8-15.4 [facility] Comment on above: Performed By: #### H CGQNT #### [address] Hypochromasia Slight Normal [facility] Comment on above: Performed By: #### H CGQNT #### [facility] [address] [place] [address] Lymphocytes/100 WBC (Bld) 43 % High 18-42 [facility] Comment on above: Performed By: #### H CGQNT #### [facility] [address] [place] [address] MCH (RBC) [Entitic mass] 24.5 pg Low 24.7-34.3 [facility] Comment on above: Performed By: #### H CGQNT #### [facility] [address] [place] [address] MCV (RBC) [Entitic vol] 77.3 fL Low 80-100 [facility] Comment on above: Performed By: #### H CGQNT #### [facility] [address] [place] [address] Mean Corpuscular HGB Conc 31.8 g/dL Low 32.0-35.0 [facility] Comment on above: Performed By: #### H CGQNT #### [facility] [address] [place] [address] Monocytes/100 WBC (Bld) 18.83 % Normal 0.00-20.00 [facility] Comment on above: Performed By: #### H CGQNT #### [facility] [address] [place] [address] Monocytes/100 WBC (Bld) 5 % Normal 2-11 [facility] Comment on above: Performed By: #### H CGQNT #### [address] Nucleated Red Blood Cell 3 /100{WBC} High 0-0 [facility] Comment on above: Performed By: #### H CGQNT #### [facility] [address] [place] [address] [place] Ovalocytes Slight Normal [facility] Comment on above: Performed By: #### H CGQNT #### [facility] [address] [place] [address] Platelet Estimate Increased Normal Normal [facility] Comment on above: Performed By: #### H CGQNT #### [facility] [address] [place] [address] Platelet mean volume (Bld) [Entitic vol] 8.1 fL Normal 6.3-10.7 [facility] Comment on above: Result Comment: PERF ORMED BY: [place] [address] PATHOLOGIST LEAD MAN OVER ALL DIES IN PATTERN SHOP FARNAZ ZULETA M.D. Performed By: #### H CGQNT #### [facility] [address] [place] [address] Platelet Morphology Normal Normal Normal [facility] Comment on above: Result Comment: PERF ORMED BY: [place] [id number] PATHOLOGIST LEAD MAN OVER ALL DIES IN PATTERN SHOP FARNAZ ZULETA M.D. Performed By: #### H CGQNT #### [address] Platelets (Bld) [#/Vol] 492 10*3/uL High 150-450 [facility] Comment on above: Performed By: #### H CGQNT #### [address] Poikilocytosis Slight Normal [facility] Comment on above: Performed By: #### H CGQNT #### [address] Polychromasia Moderate Normal [facility] Comment on above: Performed By: #### H CGQNT #### [address] RBC (Bld) [#/Vol] 4.67 10*6/uL Normal 3.60-5.00 [facility] Comment on above: Performed By: #### H CGQNT #### [address] Segmented neutrophils/100 WBC (Bld) 47 % Low 50-70 [facility] Comment on above: Performed By: #### H CGQNT #### [address] Smudge Cells Slight Normal [facility] Comment on above: Performed By: #### H CGQNT #### [address] Toxic Vacuolation Slight Normal [facility] Comment on above: Performed By: #### H CGQNT #### [facility] [address] [place] [address] [place] WBC (Bld) [#/Vol] 6.8 10*3/uL Normal 3.8-11.6 [facility] Comment on above: Performed By: #### H CGQNT #### [place] [address] [place] Dipstick and Microscopicon 1 Appearance (U) Clear Normal Clear [facility] Comment on above: Order Comment: Name Collection Type:: Clean-Voided Midstream Performed By: #### U HCG, ADDONUAPLUS #### [facility] [address] [place] [id number] [place] Bacteria,Urine None Seen Normal None Seen [facility] Comment on above: Order Comment: Name Collection Type:: Clean-Voided Midstream Performed By: #### U HCG, ADDONUAPLUS #### [facility] [address] [place] [address] [place] Bilirubin,Urine Negative Normal Negative [facility] Comment on above: Order Comment: Name Collection Type:: Clean-Voided Midstream Performed By: #### U HCG, ADDONUAPLUS #### [facility] [address] [place] [address] [place] Color (U) Yellow Normal Yellow [facility] Comment on above: Order Comment: Name Collection Type:: Clean-Voided Midstream Performed By: #### U HCG, ADDONUAPLUS #### [facility] [address] [place] [address] [place] Glucose Ql (U) Normal Normal Normal [facility] Comment on above: Order Comment: Name Collection Type:: Clean-Voided Midstream Performed By: #### U HCG, ADDONUAPLUS #### [facility] [address] [place] [address] [place] Hyaline Casts,Urine 0-8 Normal 0-8 [facility] Comment on above: Order Comment: Name Collection Type:: Clean-Voided Midstream Performed By: #### U HCG, ADDONUAPLUS #### [facility] [address] [place] [address] [place] Ketones Ql (U) Trace High Negative [facility] Comment on above: Order Comment: Name Collection Type:: Clean-Voided Midstream Performed By: #### U HCG, ADDONUAPLUS #### [facility] [address] [place], [place] [id number] [place] Leukocyte esterase Test strip Ql (U) 1+ High Negative [facility] Comment on above: Order Comment: Name Collection Type:: Clean-Voided Midstream Performed By: #### U HCG, ADDONUAPLUS #### [facility] [address] [place] [address] [place] Nitrite,Urine Negative Normal Negative [facility] Comment on above: Order Comment: Name Collection Type:: Clean-Voided Midstream Performed By: #### U HCG, ADDONUAPLUS #### [address] Occult Blood,Urine 3+ High Negative [facility] Comment on above: Order Comment: Name Collection Type:: Clean-Voided Midstream Performed By: #### U HCG, ADDONUAPLUS #### [address] pH (U) 6.0 [pH] Normal 5.0-9.0 [facility] Comment on above: Order Comment: Name Collection Type:: Clean-Voided Midstream Performed By: #### U HCG, ADDONUAPLUS #### [address] Protein,Urine Negative Normal Negative [facility] Comment on above: Order Comment: Name Collection Type:: Clean-Voided Midstream Performed By: #### U HCG, ADDONUAPLUS #### [address] RBC,Urine 20-49 High 0-4 [facility] Comment on above: Order Comment: Name Collection Type:: Clean-Voided Midstream Performed By: #### U HCG, ADDONUAPLUS #### [address] Specificy [place],Urine 1.018 Normal 1.001-1.030 [facility] Comment on above: Order Comment: Name Collection Type:: Clean-Voided Midstream Performed By: #### U HCG, ADDONUAPLUS #### [place] [address] [place] Squamous Epithelial Cell,Urine 3-4 High 0-2 [facility] Comment on above: Order Comment: Name Collection Type:: Clean-Voided Midstream Performed By: #### U HCG, ADDONUAPLUS #### [facility] [address] Urobilinogen,Urine Normal Normal Normal [facility] Comment on above: Order Comment: Name Collection Type:: Clean-Voided Midstream Performed By: #### U HCG, ADDONUAPLUS #### [facility] [address] WBC,Urine 3-4 Normal 0-4 [facility] Comment on above: Order Comment: Name Collection Type:: Clean-Voided Midstream Performed By: #### U HCG, ADDONUAPLUS #### [facility] [address] Eosinophils Auto (Bld) [#/Vo l]Ordered By: Ming Childress on 04-02-2023 Eosinophils (Bld) [#/Vol] N/A [facility] Eosinophils/100 WBC Auto (Bl d)Ordered By: Ming Childress on 04-02-2023 Eosinophils/100 WBC (Bld) N/A [facility] Eosinophils/100 WBC Manual c nt (Bld)Ordered By: Ming Childress on 04-02-2023 Eosinophils/100 WBC (Bld) 4 % 1-3 [facility] Erythrocyte distribution wid th Auto (RBC) [Ratio]Ordered By: Ming Childress on 04-02-2023 Erythrocyte distribution width (RBC) [Ratio] 15.2 % 11.9-15.3 [facility] Glucose [Mass/volume] in Ser um or PlasmaOrdered By: Ming Childress on 04-02-2023 Glucose [Mass/Vol] 94 mg/dL 70-100 [facility] Comment on above: ADA recommended refe rence rangeRandom Glucose Reference Range is dependent on time and content of last meal. Glucose of more than 200 mg/dL in a nonstressed, ambulatory subject supports the diagnosis of Diabetes Mellitus. HCG ( test) IA.rapi d Ql (U)Ordered By: Ming Childress on 04-02-2023 HCG ( test) Ql (U) Negative [facility] HCG,Urineon 04-02-2023 Beta HCG ( test) Ql (U) Negative Normal [facility] Comment on above: Order Comment: Name Collection Type:: Clean-Voided Midstream Result Comment: PERF ORMED BY: [place] [address] PATHOLOGIST LEAD MAN OVER ALL DIES IN PATTERN SHOP FARNAZ ZULETA M.D. Performed By: #### U HCG, ADDONUAPLUS #### [address] Hematocrit Auto (Bld) [Volum e fraction]Ordered By: Ming Childress on 04-02-2023 Hematocrit (Bld) [Volume fraction] 36.1 % 34.0-46.4 [facility] Hemoglobin [Mass/volume] in BloodOrdered By: Ming Childress on 04-02-2023 Hemoglobin (Bld) [Mass/Vol] 11.5 g/dL 11.8-15.4 [facility] Hypochromia LM Ql (Bld)Order ed By: Ming Childress on 04-02-2023 Hypochromia Ql (Bld) Slight [facility] Ketones Auto test strip (U) [Mass/Vol]Ordered By: Ming Childress on 04-02-2023 Ketones (U) [Mass/Vol] Trace Negative [facility] - UrinalysisOrder ed By: Ming Childress on 04-02-2023 Hyaline casts LM Ql (Urine sed) 0-8 [LPF] 0-8 [facility] Leukocytes [#/volume] correc flo for nucleated erythrocytes in Blood by Automated counOrdered By: Ming Childress on 04-02-2023 WBC corrected for nucl RBC Auto (Bld) [#/Vol] 6.8 10*3/uL 3.8-11.6 [facility] Lymphocytes Auto (Bld) [#/Vo l]Ordered By: Ming Childress on 04-02-2023 Lymphocytes (Bld) [#/Vol] N/A [facility] Lymphocytes/100 WBC Auto (Bl d)Ordered By: Ming Childress on 04-02-2023 Lymphocytes/100 WBC (Bld) N/A [facility] Lymphocytes/100 WBC Manual c nt (Bld)Ordered By: Ming Childress on 04-02-2023 Lymphocytes/100 WBC (Bld) 43 % 18-42 [facility] MCH Auto (RBC) [Entitic mass ]Ordered By: Ming Childress on 04-02-2023 MCH (RBC) [Entitic mass] 24.5 pg 24.7-34.3 [facility] MCHC Auto (RBC) [Mass/Vol]Or dered By: Ming Childress on 04-02-2023 MCHC (RBC) [Mass/Vol] 31.8 g/dL 32.0-35.0 [facility] MCV Auto (RBC) [Entitic vol] Ordered By: Ming Childress on 04-02-2023 MCV (RBC) [Entitic vol] 77.3 fL 80-100 [facility] Monocyte distribution width [Entitic volume] in Blood by AutomatedOrdered By: Ming Childress on 04-02-2023 Monocyte distribution width Auto (Bld) [Entitic vol] 18.83 % 0.00-20.00 [facility] Monocytes Auto (Bld) [#/Vol] Ordered By: Ming Childress on 04-02-2023 Monocytes (Bld) [#/Vol] N/A [facility] Monocytes/100 WBC Auto (Bld) Ordered By: Ming Childress on 04-02-2023 Monocytes/100 WBC (Bld) N/A [facility] Monocytes/100 WBC Manual cnt (Bld)Ordered By: Ming Childress on 04-02-2023 Monocytes/100 WBC (Bld) 5 % 2-11 [facility] Neutrophils Auto (Bld) [#/Vo l]Ordered By: Ming Childress on 04-02-2023 Neutrophils (Bld) [#/Vol] N/A [facility] Neutrophils/100 WBC Auto (Bl d)Ordered By: Ming Childress on 04-02-2023 Neutrophils/100 WBC (Bld) N/A [facility] Nitrite Test strip Ql (U)Ord ered By: Ming Childress on 10-21-2023 Nitrite Ql (U) Negative Negative [facility] No Panel InformationOrdered By: Ming Childress on 04-02-2023 Estimated GFR (CKD-EPI) > 60.0 mL/Min [facility] Creatinine Clearance (Chem 97.72 [facility] Nucleated RBC/100 WBC Manual cnt (Bld) [Ratio]Ordered By: Ming Childress on 04-02-2023 Nucleated RBC/100 WBC (Bld) [Ratio] 3 /100{WBC} 0-0 [facility] Nucleated erythrocytes [Pres ence] in Blood by Automated countOrdered By: Ming Childress on 04-02-2023 Nucleated RBC Auto Ql (Bld) N/A [facility] Ovalocyte detectionOrdered B y: Ming Childress on 04-02-2023 Ovalocytes LM Ql (Bld) Slight Fi [facility] Platelet adequacy [Presence] in Blood by Light microscopyOrdered By: Ming Childress on 04-02-2023 Platelets LM Ql (Bld) Increased Normal [facility] Platelet mean volume Auto (B ld) [Entitic vol]Ordered By: Ming Childress on 04-02-2023 Platelet mean volume (Bld) [Entitic vol] 8.1 fL 6.3-10.7 [facility] Platelet morphology finding [Identifier] in BloodOrdered By: Ming Childress on 04-02-2023 Platelet morphology finding Nom (Bld) Normal Normal [facility] Platelets Auto (Bld) [#/Vol] Ordered By: Ming Childress on 04-02-2023 Platelets (Bld) [#/Vol] 492 10*3/uL 150-450 [facility] Poikilocytosis [Presence] in Blood by Light microscopyOrdered By: Ming Childress on 04-02-2023 Poikilocytosis LM Ql (Bld) Slight [facility] Polychromasia [Presence] in Blood by Light microscopyOrdered By: Ming Childress on 04-02-2023 Polychromasia LM Ql (Bld) Moderate [facility] Potassium [Moles/volume] in Serum or PlasmaOrdered By: Ming Childress on 04-02-2023 Potassium [Moles/Vol] 3.7 mmol/L 3.5-5.1 [facility] Protein Auto test strip (U) [Mass/Vol]Ordered By: Ming Childress on 04-02-2023 Protein (U) [Mass/Vol] Negative Negative [facility] RBC Auto (Bld) [#/Vol]Ordere d By: Ming Childress on 04-02-2023 RBC (Bld) [#/Vol] 4.67 10*6/uL 3.60-5.00 [facility] RBC morphologyOrdered By: Carmen ttvicky Childress on 04-02-2023 RBC morphology finding Nom (Bld) N/A [facility] Segmented neutrophils/100 WB C Manual cnt (Bld)Ordered By: Ming Childress on 04-02-2023 Segmented neutrophils/100 WBC (Bld) 47 % 50-70 [facility] Serum or plasma anion gap de terminationOrdered By: Ming Childress on 04-02-2023 Anion gap [Moles/Vol] 14.2 mmol/L 6.0-15.0 [facility] Smudge cell detectionOrdered By: Ming Childress on 04-02-2023 Smudge cells LM Ql (Bld) [facility] Sodium [Moles/volume] in Ser um or PlasmaOrdered By: Ming Childress on 04-02-2023 Sodium [Moles/Vol] 137 mmol/L 136-145 [facility] Specific gravity Auto test s trip (U) [Rel density]Ordered By: Ming Childress on 04-02-2023 Specific gravity (U) [Rel density] 1.018 1.001-1.030 [facility] Squamous epithelial cells de tection in urine sediment by light microscopyOrdered By: Ming Childress on 04-02-2023 Epithelial cells.squamous LM Ql (Urine sed) 3-4 [HPF] 0-2 [facility] Toxic leukocyte vacuolation detectionOrdered By: Ming Childress on 04-02-2023 Leukocyte toxic vacuoles LM Ql (Bld) [facility] Urea nitrogen [Mass/volume] in Serum or PlasmaOrdered By: Ming Childress on 04-02-2023 Urea nitrogen [Mass/Vol] 9 mg/dL 01-04 [facility] Urine bacteria detection by automated methodOrdered By: Ming Childress on 04-02-2023 Bacteria Auto Ql (U) None seen None Seen [facility] Urine clarity by refractomet ry automatedOrdered By: Ming Childress on 04-02-2023 Clarity Refractometry automated (U) Clear Clear [facility] Urine glucose measurement by automated test strip (mass/volume)Ordered By: Ming Childress on 04-02-2023 Glucose Auto test strip (U) [Mass/Vol] Normal mg/dL Normal [facility] Urine hemoglobin detection b y automated test stripOrdered By: Ming Childress on 04-02-2023 Hemoglobin Auto test strip Ql (U) 3+ Negative [facility] Urine leukocyte esterase det ection by automated test stripOrdered By: Ming Childress on 04-02-2023 Leukocyte esterase Auto test strip Ql (U) 1+ Negative [facility] Urobilinogen Auto test strip (U) [Mass/Vol]Ordered By: Ming Childress on 04-02-2023 Urobilinogen (U) [Mass/Vol] Normal mg/dL Normal [facility] WBC Auto (Bld) [#/Vol]Ordere d By: Ming Childress on 04-02-2023 WBC (Bld) [#/Vol] 6.8 10*3/uL 3.8-11.6 [facility] pH Auto test strip (U)Ordere d By: Ming Childress on 04-02-2023 pH (U) 6.0 [pH] 5.0-9.0 [facility] Alanine aminotransferase [En zymatic activity/volume] in Serum or PlasmaOrdered By: Ming Childress on 03-29-2023 ALT [Catalytic activity/Vol] 14 U/L [facility] Albumin [Mass/volume] in Ser um or Plasma by Bromocresol green (BCG) dye binding methoOrdered By: Ming Childress on 03-29-2023 Albumin BCG dye [Mass/Vol] 4.0 g/dL 3.5-5.7 [facility] Alkaline phosphatase [Enzyma tic activity/volume] in Serum or PlasmaOrdered By: Ming Monroe on 03-29-2023 ALP [Catalytic activity/Vol] 61 U/L 34-104 [facility] Aspartate aminotransferase [ Enzymatic activity/volume] in Serum or PlasmaOrdered By: Ming Monroe on 03-29-2023 AST [Catalytic activity/Vol] 19 U/L 13-39 [facility] Basic Metabolic Panelon 03-13 Anion gap [Moles/Vol] 12.4 mmol/L Normal 6.0-15.0 [facility] Comment on above: Performed By: #### B MP, LIPASE, HEPATIC #### [facility] [address] Calcium [Mass/Vol] 8.9 mg/dL Normal 8.6-10.3 [facility] Comment on above: Performed By: #### B MP, LIPASE, HEPATIC #### [facility] [address] Chloride [Moles/Vol] 107 mmol/L Normal 98-107 [facility] Comment on above: Performed By: #### B MP, LIPASE, HEPATIC #### [facility] [address] CO2 [Moles/Vol] 22.2 mmol/L Normal 21.0-31.0 [facility] Comment on above: Performed By: #### B MP, LIPASE, HEPATIC #### [facility] [address] Creatinine [Mass/Vol] 0.63 mg/dL Normal 0.60-1.20 [facility] Comment on above: Performed By: #### B MP, LIPASE, HEPATIC #### [facility] [address] [place] [address] [place] Creatinine Clr Calc Pharmacy 134.47 Normal [facility] Comment on above: Performed By: #### B MP, LIPASE, HEPATIC #### [facility] [address] [place] [address] [place] GFR/1.73 sq M.predicted MDRD (S/P/Bld) [Vol rate/Area] mL/min/{1.73_m2} Normal [facility] Comment on above: Performed By: #### B MP, LIPASE, HEPATIC #### [facility] [address] Glucose [Mass/Vol] 90 mg/dL Normal 70-100 [facility] Comment on above: Result Comment: [facility] Glucose Reference Range is dependent on time and content of last meal. Glucose of more than 200 mg/dL in a nonstressed, ambulatory subject supports the diagnosis of Diabetes Mellitus. ADA recommended reference range Performed By: #### B MP, LIPASE, HEPATIC #### [facility] [address] Potassium [Moles/Vol] 3.6 mmol/L Normal 3.5-5.1 [facility] Comment on above: Performed By: #### B MP, LIPASE, HEPATIC #### [facility] [address] Sodium [Moles/Vol] 138 mmol/L Normal 136-145 [facility] Comment on above: Performed By: #### B MP, LIPASE, HEPATIC #### [facility] [address] Urea nitrogen [Mass/Vol] 6 mg/dL Low 7-25 [facility] Comment on above: Performed By: #### B MP, LIPASE, HEPATIC #### [facility] [address] [place] [address] Basophils Auto (Bld) [#/Vol] Ordered By: Ming Childress on 03-29-2023 Basophils (Bld) [#/Vol] 0.1 10*3/uL 0.0-0.2 [facility] Basophils/100 WBC Auto (Bld) Ordered By: Ming Childress on 03-29-2023 Basophils/100 WBC (Bld) 1.3 % . F [facility] Bilirubin Test strip Ql (U)O rdered By: Ming Childress on 03-29-2023 Bilirubin Ql (U) Negative Negative [facility] Bilirubin.direct [Mass/volum e] in Serum or PlasmaOrdered By: Ming Childress on 03-29-2023 Bilirubin.direct [Mass/Vol] 0.10 mg/dL 0.03-0.18 [facility] Bilirubin.total [Mass/volume ] in Serum or PlasmaOrdered By: Ming Childress on 03-29-2023 Bilirubin [Mass/Vol] 0.3 mg/dL 0.3-1.0 [facility] CT abdomen pelvis w conon CT abdomen pelvis w con [facility] [place] [address] [place] [address] CT Scan Report Signed Patient: Livia Noyola MR#: [id number] : 1985 Acct:[id number] Age/Sex: 38 / F ADM Date: 03/29/23 Loc: Room: [address] [place] [address] Type: ADM IN Attending Dr: Christi Aquino [...] Alesha Tejada M.D.03/29/2023 7:14 AM Dictation Location: [place] [address] Transcribed By: AMBER 03/29/23713 Dictated By: Alesha Tejada MD 03/29/23709 Signed By: 03/29/23713 Normal [facility] Calcium [Mass/volume] in Ser um or PlasmaOrdered By: Ming Childress on 03-29-2023 Calcium [Mass/Vol] 8.9 mg/dL 8.6-10.3 [facility] Carbon dioxide, total [Moles /volume] in Serum or PlasmaOrdered By: Ming Childress on 03-29-2023 CO2 [Moles/Vol] 22.2 mmol/L 21.0-31.0 [facility] Chloride [Moles/volume] in S binu or PlasmaOrdered By: Ming Childress on 03-29-2023 Chloride [Moles/Vol] 107 mmol/L 98-107 [facility] Color Auto (U)Ordered By: Carmen Childress on 03-29-2023 Color (U) Yellow Yellow [facility] Complete Blood Count Auto Di ffon 03-29-2023 Basophils (Bld) [#/Vol] 0.1 10*3/uL Normal 0.0-0.2 [facility] Comment on above: Result Comment: PERF ORMED BY: [place] [address] PATHOLOGIST LEAD MAN OVER ALL DIES IN PATTERN SHOP FARNAZ ZULETA M.D. Performed By: #### C BC #### [facility] [address] Basophils/100 WBC (Bld) 1.3 % Normal . F [facility] Comment on above: Performed By: #### C BC #### [facility] [address] [place] [address] Eosinophils (Bld) [#/Vol] 0.1 10*3/uL Normal 0.0-0.45 [facility] Comment on above: Performed By: #### C BC #### [address] Eosinophils/100 WBC (Bld) 1.8 % Normal . [facility] Comment on above: Performed By: #### C BC #### [address] Erythrocyte distribution width (RBC) [Ratio] 15.2 % Normal 11.9-15.3 [facility] Comment on above: Performed By: #### C BC #### [address] Hematocrit (Bld) [Volume fraction] 32.6 % Low 34.0-46.4 [facility] Comment on above: Performed By: #### C BC #### [address] Hemoglobin (Bld) [Mass/Vol] 10.4 g/dL Low 11.8-15.4 [facility] Comment on above: Performed By: #### C BC #### [address] Lymphocytes (Bld) [#/Vol] 3.2 10*3/uL Normal 1.00-4.8 [facility] Comment on above: Performed By: #### C BC #### [address] Lymphocytes/100 WBC (Bld) 42.8 % Normal . [facility] Comment on above: Performed By: #### C BC #### [address] MCH (RBC) [Entitic mass] 24.1 pg Low 24.7-34.3 [facility] Comment on above: Performed By: #### C BC #### [address] MCV (RBC) [Entitic vol] 75.2 fL Low 80-100 [facility] Comment on above: Performed By: #### C BC #### [facility] [address] Mean Corpuscular HGB Conc 32.0 g/dL Normal 32.0-35.0 [facility] Comment on above: Performed By: #### C BC #### [facility] [address] Monocytes (Bld) [#/Vol] 0.6 10*3/uL Normal 0.0-0.8 [facility] Comment on above: Performed By: #### C BC #### [facility] [address] [place] [address] [place] Monocytes/100 WBC (Bld) 7.3 % Normal . F [facility] Comment on above: Performed By: #### C BC #### [facility] [address] Neutrophils (Bld) [#/Vol] 3.5 10*3/uL Normal 1.8-7.7 [facility] Comment on above: Performed By: #### C BC #### [facility] [address] [place] [address] [place] Neutrophils/100 WBC (Bld) 46.8 % Normal . [facility] Comment on above: Performed By: #### C BC #### [facility] [address] [place] [address] [place] NRBC% 0.1 /100{WBC} Normal 0-0.5 [facility] Comment on above: Performed By: #### C BC #### [facility] [address] Platelet mean volume (Bld) [Entitic vol] 8.0 fL Normal 6.3-10.7 [facility] Comment on above: Performed By: #### C BC #### [facility] [address] [place] [address] [place] Platelets (Bld) [#/Vol] 396 10*3/uL Normal 150-450 [facility] Comment on above: Performed By: #### C BC #### [facility] [address] RBC (Bld) [#/Vol] 4.34 10*6/uL Normal 3.60-5.00 [facility] Comment on above: Performed By: #### C BC #### [facility] [address] WBC (Bld) [#/Vol] 7.5 10*3/uL Normal 3.8-11.6 [facility] Comment on above: Performed By: #### C BC #### [facility] [address] Creatinine [Mass/volume] in Serum or PlasmaOrdered By: Ming Childress on 03-29-2023 Creatinine [Mass/Vol] 0.63 mg/dL 0.60-1.20 [facility] Eosinophils Auto (Bld) [#/Vo l]Ordered By: Ming Childress on 03-29-2023 Eosinophils (Bld) [#/Vol] 0.1 10*3/uL 0.0-0.45 [facility] Eosinophils/100 WBC Auto (Bl d)Ordered By: Ming Childress on 03-29-2023 Eosinophils/100 WBC (Bld) 1.8 % . [facility] Erythrocyte distribution wid th Auto (RBC) [Ratio]Ordered By: Ming Childress on 03-29-2023 Erythrocyte distribution width (RBC) [Ratio] 15.2 % 11.9-15.3 [facility] Globulin Calc (S) [Mass/Vol] Ordered By: Ming Childress on 03-29-2023 Globulin (S) [Mass/Vol] 2.8 g/dL [facility] Glucose [Mass/volume] in Ser um or PlasmaOrdered By: Ming Childress on 03-29-2023 Glucose [Mass/Vol] 90 mg/dL 70-100 [facility] Comment on above: ADA recommended refe rence rangeRandom Glucose Reference Range is dependent on time and content of last meal. Glucose of more than 200 mg/dL in a nonstressed, ambulatory subject supports the diagnosis of Diabetes Mellitus. HCG ( test) IA.rapi d Ql (U)Ordered By: Ming Childress on 03-29-2023 HCG ( test) Ql (U) Negative [facility] HCG,Urineon 03-29-2023 Beta HCG ( test) Ql (U) Negative Normal [facility] Comment on above: Order Comment: Name Collection Type:: Clean-Voided Midstream Result Comment: PERF ORMED BY: [place] [address] PATHOLOGIST LEAD MAN OVER ALL DIES IN PATTERN SHOP FARNAZ ZULETA M.D. Performed By: #### H CGQNT #### [address] Hematocrit Auto (Bld) [Volum e fraction]Ordered By: Ming Childress on 03-29-2023 Hematocrit (Bld) [Volume fraction] 32.6 % 34.0-46.4 [facility] Hemoglobin [Mass/volume] in BloodOrdered By: Ming Childress on 03-29-2023 Hemoglobin (Bld) [Mass/Vol] 10.4 g/dL 11.8-15.4 [facility] Hepatic Panelon 03-29-2023 Albumin [Mass/Vol] 4.0 g/dL Normal 3.5-5.7 [facility] Comment on above: Performed By: #### B MP, LIPASE, HEPATIC #### [address] Albumin/Globulin [Mass ratio] 1.4 {ratio} Normal [facility] Comment on above: Performed By: #### B MP, LIPASE, HEPATIC #### [place] [address] [place] ALP [Catalytic activity/Vol] 61 U/L Normal 34-104 [facility] Comment on above: Performed By: #### B MP, LIPASE, HEPATIC #### [address] ALT [Catalytic activity/Vol] 14 U/L Normal 7-52 [facility] Comment on above: Performed By: #### B MP, LIPASE, HEPATIC #### [address] [place] [address] [place] AST [Catalytic activity/Vol] 19 U/L Normal 13-39 [facility] Comment on above: Performed By: #### B MP, LIPASE, HEPATIC #### [facility] [address] Bilirubin [Mass/Vol] 0.3 mg/dL Normal 0.3-1.0 [facility] Comment on above: Performed By: #### B MP, LIPASE, HEPATIC #### [facility] [address] Bilirubin,Indirect 0.2 mg/dL Normal [facility] Comment on above: Performed By: #### B MP, LIPASE, HEPATIC #### [facility] [address] Bilirubin.indirect [Mass/Vol] 0.10 mg/dL Normal 0.03-0.18 [facility] Comment on above: Performed By: #### B MP, LIPASE, HEPATIC #### [facility] [address] Globulin (S) [Mass/Vol] 2.8 g/dL Normal [facility] Comment on above: Performed By: #### B MP, LIPASE, HEPATIC #### [facility] [address] Protein [Mass/Vol] 6.8 g/dL Normal 6.4-8.9 [facility] Comment on above: Performed By: #### B MP, LIPASE, HEPATIC #### [facility] [address] Ketones Auto test strip (U) [Mass/Vol]Ordered By: Ming Childress on 03-29-2023 Ketones (U) [Mass/Vol] Negative Negative [facility] Lactate [Moles/volume] in Se rum or PlasmaOrdered By: Megan Muniz on 03-29-2023 Lactate [Moles/Vol] 0.8 mmol/L 0.5-2.2 [facility] Lactic Acidon 03-29-2023 Lactate [Moles/Vol] 0.8 mmol/L Normal 0.5-2.2 [facility] Comment on above: Result Comment: PERF ORMED BY: [place] [address] PATHOLOGIST LEAD MAN OVER ALL DIES IN PATTERN SHOP FARNAZ ZULETA M.D. Performed By: #### C BC #### [facility] [address] [place] [id number] [place] Leukocytes [#/volume] correc flo for nucleated erythrocytes in Blood by Automated counOrdered By: Ming Childress on 03-29-2023 WBC corrected for nucl RBC Auto (Bld) [#/Vol] 7.5 10*3/uL 3.8-11.6 [facility] Lipaseon 03-29-2023 Lipase [Catalytic activity/Vol] 30.0 U/L Normal 11.0-82.0 [facility] Comment on above: Result Comment: PERF ORMED BY: [place] [address] PATHOLOGIST LEAD MAN OVER ALL DIES IN PATTERN SHOP FARNAZ ZULETA M.D. Performed By: #### B MP, LIPASE, HEPATIC #### [facility] [address] [place], [place] [id number] [facility] Lipase [Enzymatic activity/v olume] in Serum or PlasmaOrdered By: Ming Childress on 03-29-2023 Lipase [Catalytic activity/Vol] 30.0 U/L 11.0-82.0 [facility] Lymphocytes Auto (Bld) [#/Vo l]Ordered By: Ming Childress on 03-29-2023 Lymphocytes (Bld) [#/Vol] 3.2 10*3/uL 1.00-4.8 [facility] Lymphocytes/100 WBC Auto (Bl d)Ordered By: Ming Childress on 03-29-2023 Lymphocytes/100 WBC (Bld) 42.8 % . [facility] MCH Auto (RBC) [Entitic mass ]Ordered By: Ming Childress on 03-29-2023 MCH (RBC) [Entitic mass] 24.1 pg 24.7-34.3 [facility] MCHC Auto (RBC) [Mass/Vol]Or dered By: Ming Childress on 03-29-2023 MCHC (RBC) [Mass/Vol] 32.0 g/dL 32.0-35.0 [facility] MCV Auto (RBC) [Entitic vol] Ordered By: Ming Childress on 03-29-2023 MCV (RBC) [Entitic vol] 75.2 fL 80-100 F [facility] Monocytes Auto (Bld) [#/Vol] Ordered By: Ming Childress on 03-29-2023 Monocytes (Bld) [#/Vol] 0.6 10*3/uL 0.0-0.8 [facility] Monocytes/100 WBC Auto (Bld) Ordered By: Ming Childress on 03-29-2023 Monocytes/100 WBC (Bld) 7.3 % . F [facility] Neutrophils Auto (Bld) [#/Vo l]Ordered By: Ming Childress on 03-29-2023 Neutrophils (Bld) [#/Vol] 3.5 10*3/uL 1.8-7.7 [facility] Neutrophils/100 WBC Auto (Bl d)Ordered By: Ming Childress on 03-29-2023 Neutrophils/100 WBC (Bld) 46.8 % . [facility] Nitrite Test strip Ql (U)Ord ered By: Ming Childress on 03-29-2023 Nitrite Ql (U) Negative Negative [facility] No Panel InformationOrdered By: Ming Childress on 03-29-2023 Estimated GFR (CKD-EPI) > 60.0 mL/Min [facility] Creatinine Clearance (Chem 134.47 [facility] Nucleated erythrocytes [Pres ence] in Blood by Automated countOrdered By: Ming Childress on 03-29-2023 Nucleated RBC Auto Ql (Bld) 0.1 /100{WBC} 0-0.5 [facility] Platelet mean volume Auto (B ld) [Entitic vol]Ordered By: Ming Childress on 03-29-2023 Platelet mean volume (Bld) [Entitic vol] 8.0 fL 6.3-10.7 [facility] Platelets Auto (Bld) [#/Vol] Ordered By: Ming Childress on 03-29-2023 Platelets (Bld) [#/Vol] 396 10*3/uL 150-450 [facility] [facility] Potassium [Moles/volume] in Serum or PlasmaOrdered By: Ming Childress on 03-29-2023 Potassium [Moles/Vol] 3.6 mmol/L 3.5-5.1 [facility] Protein Auto test strip (U) [Mass/Vol]Ordered By: Ming Childress on 03-29-2023 Protein (U) [Mass/Vol] Negative Negative [facility] Protein [Mass/volume] in Ser um or PlasmaOrdered By: Ming Childress on 03-29-2023 Protein [Mass/Vol] 6.8 g/dL 6.4-8.9 [facility] RBC Auto (Bld) [#/Vol]Ordere d By: Ming Childress on 03-29-2023 RBC (Bld) [#/Vol] 4.34 10*6/uL 3.60-5.00 [facility] Serum or plasma albumin/glob ulin mass ratioOrdered By: Ming Childress on 03-29-2023 Albumin/Globulin [Mass ratio] 1.4 {ratio} [facility] Serum or plasma anion gap de terminationOrdered By: Ming Childress on 03-29-2023 Anion gap [Moles/Vol] 12.4 mmol/L 6.0-15.0 [facility] Serum or plasma non-glucuron idated bilirubin measurement (mass/volume)Ordered By: Ming Childress on 03-29-2023 Bilirubin.indirect [Mass/Vol] 0.2 mg/dL [facility] Sodium [Moles/volume] in Ser um or PlasmaOrdered By: Ming Childress on 03-29-2023 Sodium [Moles/Vol] 138 mmol/L 136-145 [facility] Specific gravity Auto test s trip (U) [Rel density]Ordered By: Ming Childress on 03-29-2023 Specific gravity (U) [Rel density] 1.003 1.001-1.030 [facility] US transvaginalon 03-29-2023 US transvaginal [facility] [place] [address] [place] [address] Ultrasound Report Signed Patient: Livia Noyola MR#: [id number] 757 : 1985 Acct:[id number] Age/Sex: 38 / F ADM Date: 03/29/23 Loc: 3T Room: [address] [place] [address] Type: ADM IN Attending Dr: Christi Aquino MD Ordering Provider: Ming Childrses DO Date of Service: 03/29/23 US/US transvaginal: r/o L ovarian torsion ([id number]) US/US pelvic complete: PAIN Copies to: DO [...] Davi Figueroa M.D.03/29/2023 8:20 AM Dictation Location: [place] [address] Tech: Brooke Hodge Transcribed By: AMBER 03/29/23819 Dictated By: Davi Figueroa DO 03/29/23815 Signed By: 03/29/23819 Normal [facility] Urea nitrogen [Mass/volume] in Serum or PlasmaOrdered By: Ming Childress on 03-29-2023 Urea nitrogen [Mass/Vol] 6 mg/dL 01-04 [facility] Urinalysison 03-29-2023 Appearance (U) Clear Normal Clear [facility] Comment on above: Order Comment: Name Collection Type:: Clean-Voided Midstream Performed By: #### H CGQNT #### [facility] [address] [place] [address] [place] Bilirubin,Urine Negative Normal Negative [facility] Comment on above: Order Comment: Name Collection Type:: Clean-Voided Midstream Performed By: #### H CGQNT #### [place] [id number] [place] Color (U) Yellow Normal Yellow [facility] Comment on above: Order Comment: Name Collection Type:: Clean-Voided Midstream Performed By: #### H CGQNT #### [facility] [address] [place] [address] [place] Glucose Ql (U) Normal Normal Normal [facility] Comment on above: Order Comment: Name Collection Type:: Clean-Voided Midstream Performed By: #### H CGQNT #### [address] Ketones Ql (U) Negative Normal Negative [facility] Comment on above: Order Comment: Name Collection Type:: Clean-Voided Midstream Performed By: #### H CGQNT #### [place] [address] [place] Leukocyte esterase Test strip Ql (U) Negative Normal Negative [facility] Comment on above: Order Comment: Name Collection Type:: Clean-Voided Midstream Performed By: #### H CGQNT #### [place] [address] [place] Nitrite,Urine Negative Normal Negative [facility] Comment on above: Order Comment: Name Collection Type:: Clean-Voided Midstream Performed By: #### H CGQNT #### [facility] [address] [place] [address] [place] Occult Blood,Urine Negative Normal Negative [facility] Comment on above: Order Comment: Name Collection Type:: Clean-Voided Midstream Performed By: #### H CGQNT #### [facility] [address] [place] [address] [place] pH (U) 7.5 [pH] Normal 5.0-9.0 [facility] Comment on above: Order Comment: Name Collection Type:: Clean-Voided Midstream Performed By: #### H CGQNT #### [facility] [address] Protein,Urine Negative Normal Negative [facility] Comment on above: Order Comment: Name Collection Type:: Clean-Voided Midstream Performed By: #### H CGQNT #### [facility] [address] Specificy [place],Urine 1.003 Normal 1.001-1.030 [facility] Comment on above: Order Comment: Name Collection Type:: Clean-Voided Midstream Performed By: #### H CGQNT #### [facility] [address] [place] [address] Urobilinogen,Urine Normal Normal Normal [facility] Comment on above: Order Comment: Name Collection Type:: Clean-Voided Midstream Performed By: #### H CGQNT #### [facility] [address] [place] [address] Urine clarity by refractomet ry automatedOrdered By: Ming Childress on 03-29-2023 Clarity Refractometry automated (U) Clear Clear [facility] Urine glucose measurement by automated test strip (mass/volume)Ordered By: Ming Childress on 03-29-2023 Glucose Auto test strip (U) [Mass/Vol] Normal mg/dL Normal [facility] Urine hemoglobin detection b y automated test stripOrdered By: Ming Childress on 03-29-2023 Hemoglobin Auto test strip Ql (U) Negative Negative [facility] Urine leukocyte esterase det ection by automated test stripOrdered By: Ming Childress on 03-29-2023 Leukocyte esterase Auto test strip Ql (U) Negative Negative [facility] Urobilinogen Auto test strip (U) [Mass/Vol]Ordered By: Ming Childress on 03-29-2023 Urobilinogen (U) [Mass/Vol] Normal mg/dL Normal [facility] WBC Auto (Bld) [#/Vol]Ordere d By: Ming Childress on 03-29-2023 WBC (Bld) [#/Vol] 7.5 10*3/uL 3.8-11.6 [facility] pH Auto test strip (U)Ordere d By: Ming Childress on 03-29-2023 pH (U) 7.5 [pH] 5.0-9.0 [facility] Basic Metabolic Panelon 01-12 Anion gap [Moles/Vol] 11.9 mmol/L Normal 6.0-15.0 [facility] Comment on above: Performed By: #### C BC #### [facility] [address] Calcium [Mass/Vol] 9.2 mg/dL Normal 8.6-10.3 [facility] Comment on above: Performed By: #### C BC #### [facility] [address] Chloride [Moles/Vol] 107 mmol/L Normal 98-107 [facility] Comment on above: Performed By: #### C BC #### [facility] [address] [place] [address] [place] CO2 [Moles/Vol] 21.5 mmol/L Normal 21.0-31.0 [facility] Comment on above: Performed By: #### C BC #### [facility] [address] [place] [address] [place] Creatinine [Mass/Vol] 0.71 mg/dL Normal 0.60-1.20 [facility] Comment on above: Performed By: #### C BC #### [facility] [address] [place] [address] [place] Creatinine Clr Calc Pharmacy 115.62 [facility] Comment on above: Performed By: #### C BC #### [facility] [address] [place] [address] [place] GFR/1.73 sq M.predicted MDRD (S/P/Bld) [Vol rate/Area] mL/min/{1.73_m2} [facility] Comment on above: Performed By: #### C BC #### [facility] [address] [place] [id number] [place] Glucose [Mass/Vol] 99 mg/dL Normal 70-100 [facility] Comment on above: Result Comment: [place] Glucose Reference Range is dependent on time and content of last meal. Glucose of more than 200 mg/dL in a nonstressed, ambulatory subject supports the diagnosis of Diabetes Mellitus. ADA recommended reference range Performed By: #### C BC #### [facility] [address] Potassium [Moles/Vol] 3.4 mmol/L Low 3.5-5.1 [facility] Comment on above: Performed By: #### C BC #### [facility] [address] Sodium [Moles/Vol] 137 mmol/L Normal 136-145 [facility] Comment on above: Performed By: #### C BC #### [facility] [address] [place] [address] Urea nitrogen [Mass/Vol] 6 mg/dL Low 7-25 [facility] Comment on above: Performed By: #### C BC #### [facility] [address] [place] [address] Bilirubin Test strip Ql (U)O rdered By: Elier Jackson on 02-06-2023 Bilirubin Ql (U) Negative Negative [facility] CT abdomen pelvis w conon CT abdomen pelvis w con [facility] [place] [address] [place] [address] CT Scan Report Signed Patient: Livia Noyola MR#: [id number] 757 : 1985 Acct:[id number] Age/Sex: 38 / F ADM Date: 02/05/23 Loc: ER Room: Type: [facility] ER Attending Dr: Copies to: Elier Jackson [...] Betancur Jr., D.O.02/06/2023 11:23 AM Dictation Location: [facility] Transcribed By: [facility] 02/06/23 1123 Dictated By: Dennis Betancur Jr, DO 02/06/23 1109 Signed By: 02/06/23 1123 Normal [facility] Color Auto (U)Ordered By: Sergio Jackson on 02-06-2023 Color (U) Yellow Yellow [facility] Complete Blood Count Auto Di ffon 02-06-2023 Basophils (Bld) [#/Vol] 0.1 10*3/uL Normal 0.0-0.2 [facility] Comment on above: Result Comment: PERF ORMED BY: [place] [address] PATHOLOGIST LEAD MAN OVER ALL DIES IN PATTERN SHOP FARNAZ ZULETA M.D. Performed By: #### C BC #### [facility] [address] Basophils/100 WBC (Bld) 1.4 % Normal . F [facility] Comment on above: Performed By: #### C BC #### [facility] [address] Eosinophils (Bld) [#/Vol] 0.1 10*3/uL Normal 0.0-0.45 [facility] Comment on above: Performed By: #### C BC #### [address] Eosinophils/100 WBC (Bld) 1.5 % Normal . [facility] Comment on above: Performed By: #### C BC #### [address] Erythrocyte distribution width (RBC) [Ratio] 15.9 % High 11.9-15.3 [facility] Comment on above: Performed By: #### C BC #### [address] Hematocrit (Bld) [Volume fraction] 37.3 % Normal 34.0-46.4 [facility] Comment on above: Performed By: #### C BC #### [address] Hemoglobin (Bld) [Mass/Vol] 11.8 g/dL Normal 11.8-15.4 [facility] Comment on above: Performed By: #### C BC #### [address] Lymphocytes (Bld) [#/Vol] 3.6 10*3/uL Normal 1.00-4.8 [facility] Comment on above: Performed By: #### C BC #### [address] Lymphocytes/100 WBC (Bld) 44.3 % Normal . [facility] Comment on above: Performed By: #### C BC #### [address] MCH (RBC) [Entitic mass] 24.8 pg Normal 24.7-34.3 [facility] Comment on above: Performed By: #### C BC #### [address] MCV (RBC) [Entitic vol] 78.1 fL Low 80-100 F [facility] Comment on above: Performed By: #### C BC #### [address] Mean Corpuscular HGB Conc 31.8 g/dL Low 32.0-35.0 [facility] Comment on above: Performed By: #### C BC #### [address] Monocytes (Bld) [#/Vol] 0.7 10*3/uL Normal 0.0-0.8 [facility] Comment on above: Performed By: #### C BC #### [address] Monocytes/100 WBC (Bld) 17.33 % Normal 0.00-20.00 F [facility] Comment on above: Performed By: #### C BC #### [address] Monocytes/100 WBC (Bld) 8.4 % Normal . F [facility] Comment on above: Performed By: #### C BC #### [address] Neutrophils (Bld) [#/Vol] 3.6 10*3/uL Normal 1.8-7.7 [facility] Comment on above: Performed By: #### C BC #### [address] Neutrophils/100 WBC (Bld) 44.4 % Normal . [facility] Comment on above: Performed By: #### C BC #### [address] NRBC% 0.1 /100{WBC} Normal 0-0.5 [facility] Comment on above: Performed By: #### C BC #### [address] Platelet mean volume (Bld) [Entitic vol] 8.0 fL Normal 6.3-10.7 [facility] Comment on above: Performed By: #### C BC #### [address] Platelets (Bld) [#/Vol] 398 10*3/uL Normal 150-450 [facility] Comment on above: Performed By: #### C BC #### [facility] [address] RBC (Bld) [#/Vol] 4.78 10*6/uL Normal 3.60-5.00 [facility] Comment on above: Performed By: #### C BC #### [facility] [address] WBC (Bld) [#/Vol] 8.1 10*3/uL Normal 3.8-11.6 [facility] Comment on above: Performed By: #### C BC #### [address] HCG ( test) IA.rapi d Ql (U)Ordered By: Elier Jackson on 02-06-2023 HCG ( test) Ql (U) Negative [facility] HCG,Qualitative Serumon 01-12 HCG,Qualitative Serum Negative Normal [facility] Comment on above: Result Comment: PERF ORMED BY: [place] [address] PATHOLOGIST LEAD MAN OVER ALL DIES IN PATTERN SHOP FARNAZ ZULETA M.D. Performed By: #### C BC #### [address] HCG,Quantitativeon HCG,Quantitative < 0.60 Normal [facility] Comment on above: Result Comment: Appr oximate Approximate hCG Gestational Age Range (mIU/ml) (weeks) 0.2-1 5-50 1-2 50-500 2-3 100-5,000 3-4 500-10,000 4-5 1,000-50,000 5-6 10,000-100,000 6-8 15,000-200,000 8-12 10,000-100,000 PERFORMED BY: [place] [address] PATHOLOGIST LEAD MAN OVER ALL DIES IN PATTERN SHOP AFRNAZ ZULETA M.D. Performed By: #### H CGQNT #### [facility] [address] HCG,Urineon 02-06-2023 Beta HCG ( test) Ql (U) Negative Normal [facility] Comment on above: Order Comment: Name Collection Type:: Clean-Voided Midstream Result Comment: PERF ORMED BY: [place] [address] PATHOLOGIST LEAD MAN OVER ALL DIES IN PATTERN SHOP FARNAZ ZULETA M.D. Performed By: #### U A, [facility] #### [address] Hepatic Panelon 02-06-2023 Albumin [Mass/Vol] 4.2 g/dL Normal 3.5-5.7 [facility] Comment on above: Performed By: #### C BC #### [address] Albumin/Globulin [Mass ratio] 1.4 {ratio} Normal [facility] Comment on above: Performed By: #### C BC #### [address] ALP [Catalytic activity/Vol] 52 U/L Normal 34-104 [facility] Comment on above: Performed By: #### C BC #### [address] ALT [Catalytic activity/Vol] 13 U/L Normal 7-52 [facility] Comment on above: Performed By: #### C BC #### [address] AST [Catalytic activity/Vol] 12 U/L Low 13-39 [facility] Comment on above: Performed By: #### C BC #### [address] Bilirubin [Mass/Vol] 0.3 mg/dL Normal 0.3-1.0 [facility] Comment on above: Performed By: #### C BC #### [address] Bilirubin,Indirect 0.2 mg/dL Normal [facility] Comment on above: Performed By: #### C BC #### [address] Bilirubin.indirect [Mass/Vol] 0.10 mg/dL Normal 0.03-0.18 [facility] Comment on above: Performed By: #### C BC #### [address] Globulin (S) [Mass/Vol] 3.0 g/dL Normal F [facility] Comment on above: Performed By: #### C BC #### [address] Protein [Mass/Vol] 7.2 g/dL Normal 6.4-8.9 [facility] Comment on above: Performed By: #### C BC #### [address] Ketones Auto test strip (U) [Mass/Vol]Ordered By: Elier Jackson on 02-06-2023 Ketones (U) [Mass/Vol] Negative Negative [facility] Lipaseon 02-06-2023 Lipase [Catalytic activity/Vol] 40.0 U/L Normal 11.0-82.0 [facility] Comment on above: Result Comment: PERF ORMED BY: [place] [address] PATHOLOGIST LEAD MAN OVER ALL DIES IN PATTERN SHOP FARNAZ ZULETA M.D. Performed By: #### C BC #### [address] Nitrite Test strip Ql (U)Ord ered By: Elier Jackson on 02-06-2023 Nitrite Ql (U) Negative Negative [facility] Protein Auto test strip (U) [Mass/Vol]Ordered By: Elier Jackson on 02-06-2023 Protein (U) [Mass/Vol] Negative Negative [facility] Specific gravity Auto test s trip (U) [Rel density]Ordered By: Elier Jackson on 02-06-2023 Specific gravity (U) [Rel density] 1.007 1.001-1.030 [facility] US pelvic completeon 023 US pelvic complete [facility] [place] [address] [place] [address] Ultrasound Report Signed Patient: Livia Noyola MR#: [id number] 757 : 1985 Acct:[id number] Age/Sex: 38 / F ADM Date: 02/05/23 Loc: ER Room: Type: [facility] ER Attending Dr: Ordering Provider: Elier Jackson DO Date of Service: 02/06/23 US/US pelvic complete: adnexa pain ([id number]) US/US transvaginal: . Copies to: Elier Jackson DO Pelvic ultrasound. Reason for exam: Left [...] Impression: Unremarkable pelvic ultrasound. Impression dictated by: Pari Jones Jr.OEbenezer02/06/2023 11:25 AM Dictation Location: [place] [address] Tech: Jada Jon Transcribed By: AMBER 02/06/23 1125 Dictated By: Dennis Betancur Jr, DO 02/06/23 1123 Signed By: 02/06/23 1125 Normal [facility] Urinalysison 02-06-2023 Appearance (U) Clear Normal Clear [facility] Comment on above: Order Comment: Name Collection Type:: Clean-Voided Midstream Performed By: #### U A, UHCG #### [place] [id number] [facility] Bilirubin,Urine Negative Normal Negative [facility] Comment on above: Order Comment: Name Collection Type:: Clean-Voided Midstream Performed By: #### U A, UHCG #### [facility] [address] [place] [address] [place] Color (U) Yellow Normal Yellow [facility] Comment on above: Order Comment: Name Collection Type:: Clean-Voided Midstream Performed By: #### U A, UHCG #### [facility] [address] [place] [address] Glucose Ql (U) Normal Normal Normal [facility] Comment on above: Order Comment: Name Collection Type:: Clean-Voided Midstream Performed By: #### U A, UHCG #### [address] Ketones Ql (U) Negative Normal Negative [facility] Comment on above: Order Comment: Name Collection Type:: Clean-Voided Midstream Performed By: #### U A, UHCG #### [address] Leukocyte esterase Test strip Ql (U) Negative Normal Negative [facility] Comment on above: Order Comment: Name Collection Type:: Clean-Voided Midstream Performed By: #### U A, UHCG #### [place] [address] [place] Nitrite,Urine Negative Normal Negative [facility] Comment on above: Order Comment: Name Collection Type:: Clean-Voided Midstream Performed By: #### U A, UHCG #### [facility] [address] [place] [address] [place] Occult Blood,Urine Negative Normal Negative [facility] Comment on above: Order Comment: Name Collection Type:: Clean-Voided Midstream Performed By: #### U A, UHCG #### [facility] [address] [place] [address] [place] pH (U) 7.0 [pH] Normal 5.0-9.0 [facility] Comment on above: Order Comment: Name Collection Type:: Clean-Voided Midstream Performed By: #### U A, UHCG #### [address] [place] [address] [place] Protein,Urine Negative Normal Negative [facility] Comment on above: Order Comment: Name Collection Type:: Clean-Voided Midstream Performed By: #### U A, UHCG #### [facility] [address] Specificy [place],Urine 1.007 Normal 1.001-1.030 [facility] Comment on above: Order Comment: Name Collection Type:: Clean-Voided Midstream Performed By: #### U A, UHCG #### [address] Urobilinogen,Urine Normal Normal Normal [facility] Comment on above: Order Comment: Name Collection Type:: Clean-Voided Midstream Performed By: #### U A, UHCG #### [address] Urine clarity by refractomet ry automatedOrdered By: Elier Jackson on 02-06-2023 Clarity Refractometry automated (U) Clear Clear [facility] Urine glucose measurement by automated test strip (mass/volume)Ordered By: Elier Jackson on 02-06-2023 Glucose Auto test strip (U) [Mass/Vol] Normal mg/dL Normal [facility] Urine hemoglobin detection b y automated test stripOrdered By: Elier Jackson on 02-06-2023 Hemoglobin Auto test strip Ql (U) Negative Negative [facility] Urine leukocyte esterase det ection by automated test stripOrdered By: Elier Jackson on 02-06-2023 Leukocyte esterase Auto test strip Ql (U) Negative Negative [facility] Urobilinogen Auto test strip (U) [Mass/Vol]Ordered By: Elier Jackson on 02-06-2023 Urobilinogen (U) [Mass/Vol] Normal mg/dL Normal [facility] pH Auto test strip (U)Ordere d By: Elier Jackson on 02-06-2023 pH (U) 7.0 [pH] 5.0-9.0 [facility] Alanine aminotransferase [En zymatic activity/volume] in Serum or PlasmaOrdered By: Elier Jackson on 02-05-2023 ALT [Catalytic activity/Vol] 13 U/L 7-52 [facility] Albumin [Mass/volume] in Ser um or Plasma by Bromocresol green (BCG) dye binding methoOrdered By: Elier Jackson on 02-05-2023 Albumin BCG dye [Mass/Vol] 4.2 g/dL 3.5-5.7 [facility] Alkaline phosphatase [Enzyma tic activity/volume] in Serum or PlasmaOrdered By: Elier Jackson on 02-05-2023 ALP [Catalytic activity/Vol] 52 U/L 34-104 [facility] Aspartate aminotransferase [ Enzymatic activity/volume] in Serum or PlasmaOrdered By: Elier Jackson on 02-05-2023 AST [Catalytic activity/Vol] 12 U/L 13-39 [facility] Basophils Auto (Bld) [#/Vol] Ordered By: Elier Jackson on 02-05-2023 Basophils (Bld) [#/Vol] 0.1 10*3/uL 0.0-0.2 [facility] Basophils/100 WBC Auto (Bld) Ordered By: Elier Jackson on 02-05-2023 Basophils/100 WBC (Bld) 1.4 % . F [facility] Bilirubin.direct [Mass/volum e] in Serum or PlasmaOrdered By: Elier Jackson on 02-05-2023 Bilirubin.direct [Mass/Vol] 0.10 mg/dL 0.03-0.18 [facility] Bilirubin.total [Mass/volume ] in Serum or PlasmaOrdered By: Elier Jackson on 02-05-2023 Bilirubin [Mass/Vol] 0.3 mg/dL 0.3-1.0 [facility] Calcium [Mass/volume] in Ser um or PlasmaOrdered By: Elier Jackson on 02-05-2023 Calcium [Mass/Vol] 9.2 mg/dL 8.6-10.3 [facility] Carbon dioxide, total [Moles /volume] in Serum or PlasmaOrdered By: Elier Jackson on 02-05-2023 CO2 [Moles/Vol] 21.5 mmol/L 21.0-31.0 [facility] Chloride [Moles/volume] in S binu or PlasmaOrdered By: Elier Jackson on 02-05-2023 Chloride [Moles/Vol] 107 mmol/L 98-107 [facility] Choriogonadotropin.beta subu nit [Units/volume] in Serum or PlasmaOrdered By: Elier Jackson on 02-05-2023 HCG.beta subunit Qn m[IU]/mL [facility] Comment on above: Approximate Approxim ate hCG Gestational Age Range (mIU/ml) (weeks)0.2-1 5-50 1-2 50-500 2-3 100-5,000 3-4 500-10,000 4-5 1,000-50,000 5-6 10,000-100,000 6-8 15,000-200,000 8-12 10,000-100,000 HCG.beta subunit Qn Negative [facility] Creatinine [Mass/volume] in Serum or PlasmaOrdered By: Elier Jackson on 02-05-2023 Creatinine [Mass/Vol] 0.71 mg/dL 0.60-1.20 [facility] Eosinophils Auto (Bld) [#/Vo l]Ordered By: Elier Jackson on 02-05-2023 Eosinophils (Bld) [#/Vol] 0.1 10*3/uL 0.0-0.45 [facility] Eosinophils/100 WBC Auto (Bl d)Ordered By: Elier Jackson on 02-05-2023 Eosinophils/100 WBC (Bld) 1.5 % . [facility] Erythrocyte distribution wid th Auto (RBC) [Ratio]Ordered By: Elier Jackson on 02-05-2023 Erythrocyte distribution width (RBC) [Ratio] 15.9 % 11.9-15.3 [facility] Globulin Calc (S) [Mass/Vol] Ordered By: Elier Jackson on 02-05-2023 Globulin (S) [Mass/Vol] 3.0 g/dL [facility] Glucose [Mass/volume] in Ser um or PlasmaOrdered By: Elier Jackson on 02-05-2023 Glucose [Mass/Vol] 99 mg/dL 70-100 [facility] Comment on above: ADA recommended refe rence rangeRandom Glucose Reference Range is dependent on time and content of last meal. Glucose of more than 200 mg/dL in a nonstressed, ambulatory subject supports the diagnosis of Diabetes Mellitus. Hematocrit Auto (Bld) [Volum e fraction]Ordered By: Elier Jackson on 02-05-2023 Hematocrit (Bld) [Volume fraction] 37.3 % 34.0-46.4 [facility] Hemoglobin [Mass/volume] in BloodOrdered By: Elier Jackson on 02-05-2023 Hemoglobin (Bld) [Mass/Vol] 11.8 g/dL 11.8-15.4 [facility] Leukocytes [#/volume] correc flo for nucleated erythrocytes in Blood by Automated counOrdered By: Elier Jackson on 02-05-2023 WBC corrected for nucl RBC Auto (Bld) [#/Vol] 8.1 10*3/uL 3.8-11.6 [facility] Lipase [Enzymatic activity/v olume] in Serum or PlasmaOrdered By: Elier Jackson on 02-05-2023 Lipase [Catalytic activity/Vol] 40.0 U/L 11.0-82.0 [facility] Lymphocytes Auto (Bld) [#/Vo l]Ordered By: Elier Jackson on 02-05-2023 Lymphocytes (Bld) [#/Vol] 3.6 10*3/uL 1.00-4.8 [facility] Lymphocytes/100 WBC Auto (Bl d)Ordered By: Elier Jackson on 02-05-2023 Lymphocytes/100 WBC (Bld) 44.3 % . [facility] MCH Auto (RBC) [Entitic mass ]Ordered By: Elier Jackson on 02-05-2023 MCH (RBC) [Entitic mass] 24.8 pg 24.7-34.3 [facility] MCHC Auto (RBC) [Mass/Vol]Or dered By: Elier Jackson on 02-05-2023 MCHC (RBC) [Mass/Vol] 31.8 g/dL 32.0-35.0 [facility] MCV Auto (RBC) [Entitic vol] Ordered By: Elier Jackson on 02-05-2023 MCV (RBC) [Entitic vol] 78.1 fL 80-100 [facility] Monocyte distribution width [Entitic volume] in Blood by AutomatedOrdered By: Elier Jackson on 02-05-2023 Monocyte distribution width Auto (Bld) [Entitic vol] 17.33 % 0.00-20.00 [facility] Monocytes Auto (Bld) [#/Vol] Ordered By: Elier Jackson on 02-05-2023 Monocytes (Bld) [#/Vol] 0.7 10*3/uL 0.0-0.8 [facility] Monocytes/100 WBC Auto (Bld) Ordered By: Elier Jackson on 02-05-2023 Monocytes/100 WBC (Bld) 8.4 % . F [facility] Neutrophils Auto (Bld) [#/Vo l]Ordered By: Elier Jackson on 02-05-2023 Neutrophils (Bld) [#/Vol] 3.6 10*3/uL 1.8-7.7 [facility] Neutrophils/100 WBC Auto (Bl d)Ordered By: Elier Jackson on 02-05-2023 Neutrophils/100 WBC (Bld) 44.4 % . [facility] No Panel InformationOrdered By: Elier Jackson on 02-05-2023 Estimated GFR (CKD-EPI) > 60.0 mL/Min [facility] Creatinine Clearance (Chem 115.62 [facility] Nucleated erythrocytes [Pres ence] in Blood by Automated countOrdered By: Elier Jackson on 02-05-2023 Nucleated RBC Auto Ql (Bld) 0.1 /100{WBC} 0-0.5 [facility] Platelet mean volume Auto (B ld) [Entitic vol]Ordered By: Elier Jackson on 02-05-2023 Platelet mean volume (Bld) [Entitic vol] 8.0 fL 6.3-10.7 [facility] Platelets Auto (Bld) [#/Vol] Ordered By: Elier Jackson on 02-05-2023 Platelets (Bld) [#/Vol] 398 10*3/uL 150-450 [facility] Potassium [Moles/volume] in Serum or PlasmaOrdered By: Elier Jackson on 02-05-2023 Potassium [Moles/Vol] 3.4 mmol/L 3.5-5.1 [facility] Protein [Mass/volume] in Ser um or PlasmaOrdered By: Elier Jackson on 02-05-2023 Protein [Mass/Vol] 7.2 g/dL 6.4-8.9 [facility] RBC Auto (Bld) [#/Vol]Ordere d By: Elier Jackson on 02-05-2023 RBC (Bld) [#/Vol] 4.78 10*6/uL 3.60-5.00 [facility] Serum or plasma albumin/glob ulin mass ratioOrdered By: Elier Jackson on 02-05-2023 Albumin/Globulin [Mass ratio] 1.4 {ratio} [facility] Serum or plasma anion gap de terminationOrdered By: Elier Jackson on 02-05-2023 Anion gap [Moles/Vol] 11.9 mmol/L 6.0-15.0 [facility] Serum or plasma non-glucuron idated bilirubin measurement (mass/volume)Ordered By: Elier Jackson on 02-05-2023 Bilirubin.indirect [Mass/Vol] 0.2 mg/dL [facility] Sodium [Moles/volume] in Ser um or PlasmaOrdered By: Elier Jackson on 02-05-2023 Sodium [Moles/Vol] 137 mmol/L 136-145 [facility] Urea nitrogen [Mass/volume] in Serum or PlasmaOrdered By: Elier Jackson on 02-05-2023 Urea nitrogen [Mass/Vol] 6 mg/dL 7-25 [facility] WBC Auto (Bld) [#/Vol]Ordere d By: Elier Jackson on 02-05-2023 WBC (Bld) [#/Vol] 8.1 10*3/uL 3.8-11.6 [facility] GENITAL CULTUREon 08-01-2022 Genital Culture, Routine Final report Abnormal [facility] Comment on above: Result Comment: Spec imen stability note: A swab transport (ie., ESwab, Amies agar gel) received by the lab more than 24 hours after collection may result in reduced recovery of Neisseria gonorrhoeae (GC). (This is informational only and may not apply to this specimen.) Performed By: #### C XGENIT #### [facility] [address] [place] [address] Dr. Rod Ramirez Result 1 Comment Abnormal [facility] Comment on above: Result Comment: [...] (CLSI) Performed By: #### C XGENIT #### [facility] [address] [place] [address] Dr. Rod Ramirez Result 2 Comment Normal [facility] Comment on above: Result Comment: Rout ine genital deborah. Light growth Performed By: #### C XGENIT #### [facility] [address] [place] [address] Dr. Rod Ramirez CBC AUTO DIFFon 07-28-2022 BASO # 0.0 103/ul Normal 0.0-0.1 [facility] Comment on above: Performed By: #### C BC #### [facility] [address] [place] [address] Dr. Rod Ramirez Basophils/100 WBC (Bld) 0.4 % Normal 0.2-2.0 [facility] Comment on above: Performed By: #### C BC #### [facility] [address] [place] [address] Dr. Rod Raimrez EO # 0.1 103/ul Normal 0.0-0.7 [facility] Comment on above: Performed By: #### C BC #### [facility] [address] [place] [address] Dr. Rod Ramirez Eosinophils/100 WBC (Bld) 1.5 % Normal 0.9-7.0 [facility] Comment on above: Performed By: #### C BC #### [facility] [address] [place] [address] Dr. Rod Ramirez Erythrocyte distribution width (RBC) [Ratio] 12.9 % Normal 11.0-15.0 [facility] Comment on above: Performed By: #### C BC #### [facility] [address] [place] [address] Dr. Rod Ramirez Hematocrit (Bld) [Volume fraction] 40.9 % Normal 36.0-48.0 [facility] Comment on above: Performed By: #### C BC #### [facility] [address] [place] [address] Dr. Rod Ramirez Hemoglobin (Bld) [Mass/Vol] 13.7 g/dL Normal 12.0-16.0 [facility] Comment on above: Performed By: #### C BC #### [facility] [address] [place] [address] Dr. Rod Ramirez IG # 0.02 10e3/ul Normal 0.00-0.03 [facility] Comment on above: Performed By: #### C BC #### [facility] [address] [place] [address] Dr. Rod Ramirez IG % 0.3 % Normal 0.0-0.5 [facility] Comment on above: Performed By: #### C BC #### [facility] [address] [place] [address] Dr. Rod Ramirez LYMPH # 1.6 103/ul Normal 1.2-3.8 [facility] Comment on above: Performed By: #### C BC #### [facility] [address] [place] [address] Dr. Rod Ramirez Lymphocytes/100 WBC (Bld) 23.6 % Normal 20.5-60.0 [facility] Comment on above: Performed By: #### C BC #### [facility] [address] [place] [address] Dr. Rod Ramirez MANUAL DIFF REQ NO Normal [facility] Comment on above: Performed By: #### C BC #### [facility] [address] [place] [address] Dr. Rod Ramirez MCH (RBC) [Entitic mass] 27.7 pg Normal 26.7-34.0 [facility] Comment on above: Performed By: #### C BC #### [facility] [address] [address] [address] Rod Ramirez MCHC (RBC) [Mass/Vol] 33.5 g/dL Normal 29.9-35.2 [facility] Comment on above: Performed By: #### C BC #### [facility] [address] [address] [address] Rod Ramirez MCV (RBC) [Entitic vol] 82.6 fL Normal 81.0-99.0 [facility] Comment on above: Performed By: #### C BC #### [facility] [address] [address] [address] Rod Ramirez MONO # 0.4 103/ul Normal 0.3-0.8 [facility] Comment on above: Performed By: #### C BC #### [facility] [address] [address] [address] Rod Ramirez Monocytes/100 WBC (Bld) 6.4 % Normal 1.7-12.0 [facility] Comment on above: Performed By: #### C BC #### [facility] [address] [place] [address] Dr. Rod Ramirez NEUT # 4.6 103/ul Normal 1.4-6.5 [facility] Comment on above: Performed By: #### C BC #### [facility] [address] [address] [address] Rod Ramirez Neutrophils/100 WBC (Bld) 67.8 % Normal 43.0-75.0 [facility] Comment on above: Performed By: #### C BC #### [facility] [address] [address] [address] Rod Ramirez Platelet mean volume (Bld) [Entitic vol] 9.4 fL Critically low 9.5-13.5 [facility] Comment on above: Performed By: #### C BC #### [facility] [address] [address] [address] Rod Ramirez PLT 439 103/ul Normal 150-450 [facility] Comment on above: Performed By: #### C BC #### [facility] [address] [address] [address] Rod Ramirez RBC 4.95 106/ul Normal 4.20-5.40 [facility] Comment on above: Performed By: #### C BC #### [facility] [address] [address] [address] Rod Ramirez WBC 6.7 103/ul Normal 4.0-11.0 [facility] Comment on above: Performed By: #### C BC #### [facility] [address] [address] [address] Rod Ramirez PREG HCG QUALon 07-28-2022 , QUAL Negative Normal NEGATIVE [facility] Comment on above: Performed By: #### P REG #### [facility] [address] [place] [address] Dr. Rod Ramirez PROF CHEM 8 (BAS METB)on Anion gap [Moles/Vol] 15.5 mmol/L Normal [facility] Comment on above: Performed By: #### B MP #### [facility] [address] [address] [address] Rod Ramirez Calcium [Mass/Vol] 9.0 mg/dL Normal 8.5-10.1 [facility] Comment on above: Performed By: #### B MP #### [facility] [address] [address] [address] Rod Ramirez Chloride [Moles/Vol] 103 mmol/L Normal 98-107 [facility] Comment on above: Performed By: #### B MP #### [facility] [address] [place] [address] Dr. Rod Ramirez CO2 [Moles/Vol] 23.9 mmol/L Normal 21.0-32.0 [facility] Comment on above: Performed By: #### B MP #### [facility] [address] [address] [address] Rod Ramirez Creatinine [Mass/Vol] 0.79 mg/dL Normal 0.55-1.02 [facility] Comment on above: Performed By: #### B MP #### [facility] [address] [address] [address] Rod Ramirez EGFR-AF GREENLANDIC >60 Normal >=60 [facility] Comment on above: Performed By: #### B MP #### [facility] [address] [address] [address] Rod Ramirez EGFR-NON AF GREENLANDIC >60 Normal >=60 [facility] Comment on above: Performed By: #### B MP #### [facility] [address] [address] [address] Rod Ramirez Glucose [Mass/Vol] 108 mg/dL Critically high 74-106 [facility] Comment on above: Performed By: #### B MP #### [facility] [address] [address] [address] Rod Ramirez Potassium [Moles/Vol] 3.4 mmol/L Critically low 3.5-5.1 [facility] Comment on above: Performed By: #### B MP #### [facility] [address] [address] [address] Rod Ramirze Sodium [Moles/Vol] 139 mmol/L Normal 136-145 [facility] Comment on above: Performed By: #### B MP #### [facility] [address] [address] [address] Rod Ramirez Urea nitrogen [Mass/Vol] 7.0 mg/dL Normal 7.0-18.0 [facility] Comment on above: Performed By: #### B MP #### [facility] [address] [address] [address] Rod Ramirez Urea nitrogen/Creatinine [Mass ratio] 8.9 mg/mg Normal [facility] Comment on above: Performed By: #### B MP #### [facility] [address] [address] [address] Rod Ramirez US PELVIS TRANSVAGon 023 [...] AUBREY BURKS Date: 2022-07-28 07:46 Normal [facility] WET PREPon 07-28-2022 CLUE CELLS NONE SEEN Normal NONE SEEN [facility] Comment on above: Performed By: #### W P #### [facility] [address] [address] [address] Rod Ramirez FUNGAL ELEMENTS NONE SEEN Normal NONE SEEN [facility] Comment on above: Performed By: #### W P #### [facility] [address] [address] [address] Rod Ramirez RBC -WET PREP RARE Abnormal NONE SEEN [facility] Comment on above: Performed By: #### W P #### [facility] [address] [address] [address] Rod Ramirez TRICHOMONAS NONE SEEN Normal NONE SEEN [facility] Comment on above: Performed By: #### W P #### [facility] [address] [address] [address] Rod Ramirez WBC- WET PREP RARE Abnormal NONE SEEN [facility] Comment on above: Performed By: #### W P #### [facility] [address] [address] [address] Rod Ramirez WET PREP BACTERIA NONE SEEN Normal NONE SEEN [facility] Comment on above: Performed By: #### W P #### [facility] [address] [address] [address] Rod Morales 04-30-2022 CNPN Telephone (HEMASA) LIVIA NOYOLA ([id number]) 1985 F Date Time Provider Department 04/30/22 GIL NI HEMASA During your visit today, we recorded the [...] [D50.0] Order(s):COMP METABOLIC PANEL [SQCMP] Order #: [id number] FUTURE Prescriptions as of 05/03/2022 - ALPRAZolam [...] Status:Closed by GIL NI on 05/03/22 Normal [facility] Anisocytosis LM Ql (Bld)Orde red By: Yevgeniy Cabrera on 04-28-2022 Anisocytosis Ql (Bld) Marked [facility] Automated erythrocytes count in urine sediment (number/area)Ordered By: Yevgeniy Cabrera on 04-28-2022 RBC Auto (Urine sed) [#/Area] None seen [HPF] 0-4 [facility] Automated leukocytes count i n urine sediment (number/area)Ordered By: Yevgeniy Cabrera on 04-28-2022 WBC Auto (Urine sed) [#/Area] 3-4 [HPF] 0-4 [facility] Basophils Auto (Bld) [#/Vol] Ordered By: Yevgeniy Cabrera on 04-28-2022 Basophils (Bld) [#/Vol] 0.1 10*3/uL 0.0-0.2 [facility] Basophils/100 WBC Auto (Bld) Ordered By: Yevgeniy Cabrera on 04-28-2022 Basophils/100 WBC (Bld) 1.0 % . [facility] Bilirubin Test strip Ql (U)O rdered By: Yevgeniy Cabrera on 04-28-2022 Bilirubin Ql (U) Negative Negative [facility] Body fluid albumin measureme nt (mass/volume)Ordered By: Yevgeniy Cabrera on 04-28-2022 Albumin (Body fld) [Mass/Vol] 3.8 g/dL 3.2-5.5 [facility] Color Auto (U)Ordered By: Marcus Cabrera on 04-28-2022 Color (U) Yellow Yellow [facility] Creatinine and Glomerular fi ltration rate.predicted panel (S/P/Bld)Ordered By: Yevgeniy Cabrera on 04-28-2022 Creatinine [Mass/Vol] 0.62 mg/dL 0.44-1.03 [facility] Eosinophils Auto (Bld) [#/Vo l]Ordered By: Yevgeniy Cabrera on 04-28-2022 Eosinophils (Bld) [#/Vol] 0.1 10*3/uL 0.0-0.45 [facility] Eosinophils/100 WBC Auto (Bl d)Ordered By: Yevgeniy Cabrera on 04-28-2022 Eosinophils/100 WBC (Bld) 1.0 % . [facility] Erythrocyte distribution wid th Auto (RBC) [Ratio]Ordered By: Yevgeniy Cabrera on 04-28-2022 Erythrocyte distribution width (RBC) [Ratio] 27.1 % 11.9-15.3 [facility] Estimated glomerular filtrat ion rate (GFR) non- AmericanOrdered By: Yevgeniy Cabrera on 04-28-2022 GFR/1.73 sq M.predicted among non-blacks MDRD (S/P/Bld) [Vol rate/Area] > 60 mL/Min [facility] Globulin Calc (S) [Mass/Vol] Ordered By: Yevgeniy Cabrera on 04-28-2022 Globulin (S) [Mass/Vol] 3.1 g/dL F [facility] HCG ( test) IA.rapi d Ql (U)Ordered By: Yevgeniy Cabrera on 04-28-2022 HCG ( test) Ql (U) Negative [facility] Hematocrit Auto (Bld) [Volum e fraction]Ordered By: Yevgeniy Cabrera on 04-28-2022 Hematocrit (Bld) [Volume fraction] 39.4 % 34.0-46.4 [facility] Hemoglobin [Mass/volume] in BloodOrdered By: Yevgeniy Cabrera on 04-28-2022 Hemoglobin (Bld) [Mass/Vol] 12.3 g/dL 11.8-15.4 [facility] Hypochromia LM Ql (Bld)Order ed By: Yevgeniy Cabrera on 04-28-2022 Hypochromia Ql (Bld) Slight [facility] Ketones Auto test strip (U) [Mass/Vol]Ordered By: Yevgeniy Cabrera on 04-28-2022 Ketones (U) [Mass/Vol] Negative Negative [facility] - Hematology and Cell countsOrdered By: Yevgeniy Cabrera on 04-28-2022 Nucleated RBC/100 WBC (Bld) [Ratio] 0.0 % 0-0.5 [facility] - UrinalysisOrder ed By: Yevgeniy Cabrera on 04-28-2022 Hyaline casts LM Ql (Urine sed) None seen [LPF] 0-8 [facility] Leukocytes [#/volume] in Blo od by Automated countOrdered By: Yevgeniy Cabrera on 04-28-2022 WBC (Bld) [#/Vol] 7.9 10*3/uL 4.5-11.0 [facility] Lymphocytes Auto (Bld) [#/Vo l]Ordered By: Yevgeniy Cabrera on 04-28-2022 Lymphocytes (Bld) [#/Vol] 2.3 10*3/uL 1.00-4.8 [facility] Lymphocytes/100 WBC Auto (Bl d)Ordered By: Yevgeniy Cabrera on 04-28-2022 Lymphocytes/100 WBC (Bld) 28.9 % . [facility] MCH Auto (RBC) [Entitic mass ]Ordered By: Yevgeniy Cabrera on 04-28-2022 MCH (RBC) [Entitic mass] 23.3 pg 24.7-34.3 [facility] MCHC Auto (RBC) [Mass/Vol]Or dered By: Yevgeniy Cabrera on 04-28-2022 MCHC (RBC) [Mass/Vol] 31.3 g/dL 32.0-35.0 [facility]ir [facility] MCV Auto (RBC) [Entitic vol] Ordered By: Yevgeniy Cabrera on 04-28-2022 MCV (RBC) [Entitic vol] 74.5 fL 80-100 F [facility] Monocytes Auto (Bld) [#/Vol] Ordered By: Yevgeniy Cabrera on 04-28-2022 Monocytes (Bld) [#/Vol] 0.4 10*3/uL 0.0-0.8 [facility] Monocytes/100 WBC Auto (Bld) Ordered By: Yevgeniy Cabrera on 04-28-2022 Monocytes/100 WBC (Bld) 4.5 % . [facility] Neutrophils Auto (Bld) [#/Vo l]Ordered By: Yevgeniy Cabrera on 04-28-2022 Neutrophils (Bld) [#/Vol] 5.1 10*3/uL 1.8-7.7 [facility] Neutrophils/100 WBC Auto (Bl d)Ordered By: Yevgeniy Cabrera on 04-28-2022 Neutrophils/100 WBC (Bld) 64.6 % . [facility] Nitrite Test strip Ql (U)Ord ered By: Yevgeniy Cabrera on 04-28-2022 Nitrite Ql (U) Negative Negative [facility] No Panel InformationOrdered By: Yevgeniy Cabrera on 04-28-2022 Estimated GFR () > 60 mL/Min [facility] Comment on above: GFR estimated refere nce range: According to KDOQI guidelines, <60 ml/min/1.73m2 is sufficient to diagnose a patient with chronic kidney disease. Pharmacy Creatinine Clearance (Chem 132.36 [facility] Slides for Pathologist Review Ordered path review [facility] Ovalocyte detectionOrdered B y: Yevgeniy Cabrera on 04-28-2022 Ovalocytes LM Ql (Bld) Moderate Fi [facility] Platelet adequacy [Presence] in Blood by Light microscopyOrdered By: Yevgeniy Cabrera on 04-28-2022 Platelets LM Ql (Bld) Normal Normal [facility] Platelet mean volume Auto (B ld) [Entitic vol]Ordered By: Yevgeniy Cabrera on 04-28-2022 Platelet mean volume (Bld) [Entitic vol] 7.4 fL 6.3-10.7 [facility] Platelet morphology finding [Identifier] in BloodOrdered By: Yevgeniy Cabrera on 04-28-2022 Platelet morphology finding Nom (Bld) Normal Normal [facility] Platelets Auto (Bld) [#/Vol] Ordered By: Yevgeniy Cabrera on 04-28-2022 Platelets (Bld) [#/Vol] 329 10*3/uL 150-450 [facility] Poikilocytosis [Presence] in Blood by Light microscopyOrdered By: Yevgeniy Cabrera on 04-28-2022 Poikilocytosis LM Ql (Bld) Moderate [facility] Polychromasia [Presence] in Blood by Light microscopyOrdered By: Yevgeniy Cabrera on 04-28-2022 Polychromasia LM Ql (Bld) Slight [facility] Protein Auto test strip (U) [Mass/Vol]Ordered By: Yevgeniy Cabrera on 04-28-2022 Protein (U) [Mass/Vol] Negative Negative Fi [facility] Protein [Mass/volume] in Ser um or PlasmaOrdered By: Yevgeniy Cabrera on 04-28-2022 Protein [Mass/Vol] 6.9 g/dL 6.1-7.9 [facility] RBC Auto (Bld) [#/Vol]Ordere d By: Yevgeniy Cabrera on 04-28-2022 RBC (Bld) [#/Vol] 5.29 10*6/uL 3.60-5.00 [facility] RBC morphologyOrdered By: Marcus Cabrera on 04-28-2022 RBC morphology finding Nom (Bld) N/A [facility] Serum or plasma alanine syed otransferase measurement without P-5'-P (enzymatic activiOrdered By: Yevgeniy Cabrera on 04-28-2022 ALT No additional P-5'-P [Catalytic activity/Vol] 43 U/L 10-60 [facility] Serum or plasma albumin/glob ulin mass ratioOrdered By: Yevgeniy Cabrera on 04-28-2022 Albumin/Globulin [Mass ratio] 1.2 {ratio} [facility] Serum or plasma alkaline zeeshan sphatase measurement (enzymatic activity/volume)Ordered By: Yevgeniy Cabrera on 04-28-2022 ALP [Catalytic activity/Vol] 65 U/L 32-92 [facility] Serum or plasma anion gap de terminationOrdered By: Yevgeniy Cabrera on 04-28-2022 Anion gap [Moles/Vol] 14.6 mmol/L 6.0-15.0 [facility] Serum or plasma aspartate am inotransferase measurement (enzymatic activity/volume)Ordered By: Yevgeniy Cabrera on 04-28-2022 AST [Catalytic activity/Vol] 26 U/L 10-42 [facility] Serum or plasma calcium donaldo urement (mass/volume)Ordered By: Yevgeniy Cabrera on 04-28-2022 Calcium [Mass/Vol] 9.3 mg/dL 8.2-10.2 [facility] Serum or plasma chloride claudia surement (moles/volume)Ordered By: Yevgeniy Cabrera on 04-28-2022 Chloride [Moles/Vol] 105 mmol/L 95-114 [facility] Serum or plasma glucose donaldo urement (mass/volume)Ordered By: Yevgeniy Cabrera on 04-28-2022 Glucose [Mass/Vol] 112 mg/dL 70-100 [facility] Comment on above: ADA recommended refe rence rangeRandom Glucose Reference Range is dependent on time and content of last meal. Glucose of more than 200 mg/dL in a nonstressed, ambulatory subject supports the diagnosis of Diabetes Mellitus. Serum or plasma potassium me asurement (moles/volume)Ordered By: Yevgeniy Cabrera on 04-28-2022 Potassium [Moles/Vol] 3.7 mmol/L 3.5-5.1 [facility] Serum or plasma sodium measu rement (moles/volume)Ordered By: Yevgeniy Cabrera on 04-28-2022 Sodium [Moles/Vol] 137 mmol/L 136-146 [facility] Serum or plasma total biliru bin measurement (mass/volume)Ordered By: Yevgeniy Cabrera on 04-28-2022 Bilirubin [Mass/Vol] 0.5 mg/dL 0.3-1.2 [facility] Serum or plasma total carbon dioxide measurement (moles/volume)Ordered By: Yevgeniy Cabrera on 04-28-2022 CO2 [Moles/Vol] 21.1 mmol/L 22.0-30.0 [facility] Serum or plasma urea nitroge n measurement (mass/volume)Ordered By: Yevgeniy Cabrera on 04-28-2022 Urea nitrogen [Mass/Vol] 5 mg/dL 9-23 [facility] Specific gravity Auto test s trip (U) [Rel density]Ordered By: Yevgeniy Cabrera on 04-28-2022 Specific gravity (U) [Rel density] 1.005 1.001-1.030 [facility] Squamous epithelial cells de tection in urine sediment by light microscopyOrdered By: Yevgeniy Cabrera on 04-28-2022 Epithelial cells.squamous LM Ql (Urine sed) 0-1 [HPF] 0-2 [facility] Teardrop cell detectionOrder ed By: Yevgeniy Cabrera on 04-28-2022 Dacrocytes LM Ql (Bld) [facility] bacteria detection by automated methodOrdered By: Yevgeniy Cabrera on 04-28-2022 Bacteria Auto Ql (U) None seen None Seen [facility] Urine clarity by refractomet ry automatedOrdered By: Yevgeniy Cabrera on 04-28-2022 Clarity Refractometry automated (U) Cloudy Clear [facility] Urine glucose measurement by automated test strip (mass/volume)Ordered By: Yevgeniy Cabrera on 04-28-2022 Glucose Auto test strip (U) [Mass/Vol] Normal mg/dL Normal [facility] Urine hemoglobin detection b y automated test stripOrdered By: Yevgeniy Cabrera on 04-28-2022 Hemoglobin Auto test strip Ql (U) Negative Negative [facility] Urine leukocyte esterase det ection by automated test stripOrdered By: Yevgeniy Cabrera on 04-28-2022 Leukocyte esterase Auto test strip Ql (U) 1+ Negative [facility] Urobilinogen Auto test strip (U) [Mass/Vol]Ordered By: Yevgeniy Cabrera on 04-28-2022 Urobilinogen (U) [Mass/Vol] Normal mg/dL Normal [facility] pH Auto test strip (U)Ordere d By: Yevgeniy Cabrera on 04-28-2022 pH (U) 6.5 [pH] 5.0-9.0 [facility] ALLIED HEALTHon 04-09-2022 ALLIED HEALTH HNO ID: [id number] Author: Stephenie Suh 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 Service: ? Author Type: Art [...] 2022 TIME: 2:21 PM PAGER/CONTACT #: Angela [facility] Andrew 03-19-2022 CNPN Telephone (NCCAP) MAGALITRACEYLIVIA L ([id number]) 1985 F Date Time Provider Department 03/19/22 GIL NI During your visit today, we recorded the following information about you: Corbin Alhaji 03/19/2022 2:56 PM Signed Patient missed her scheduled Iron infusion today. Call placed to patient to get her rescheduled. No answer, left detailed message that I rescheduled another Venofer for her on the as DR wanted 3 weekly infusions. Corbin Alhaji Allergies As of Date: 03/19/2022 Noted Allergy Reaction MORPHINE 06/20/2018 14 - Other: See Comments Comments: Spasms Date Reviewed: 03/10/2022 Reviewed by: Gil Ni APRN.PROFESSIONAL ADVISOR - Fully Assessed Reason for Visit: No [...] iron [K90.9] 10/27/2020 Encounter Status:Closed by CORBIN ROSE [facility] 03/19/22 [facility] LIVIA NOYOLA ([id number]) 1985 F Date Time Provider Department 03/19/22 FINANCIAL NAVIGATOR JOHNY HOYOS During your visit today, we recorded the following information about you: Sparkle Short [facility] 03/19/2022 4:48 PM Signed 1st report of treatment-Non oncology regimen (Venofer) No FA available for this treatment at this time. Allergies As of Date: 03/19/2022 Noted Allergy Reaction MORPHINE 06/20/2018 14 - Other: See Comments Comments: Spasms Date Reviewed: 03/10/2022 Reviewed by: Gil Ni APRN.PROFESSIONAL ADVISOR - Fully Assessed Reason for Visit: Benefits Investigation [4098] Prescriptions as of 03/19/2022 - ALPRAZolam (XANAX) [...] of iron [K90.9] 10/27/2020 Encounter Status:Closed by SPARKLE BEARD on 03/19/22 [facility] 03-15-2022 [facility] Telephone (HEMBRITTANY) LIVIA NOYOLA ([id number]) 1985 F Date Time Provider Department 03/15/22 SHARON SAAVEDRA During your visit today, we recorded the following information about you: MARY Narvaez 03/15/2022 12:06 PM Signed Patient appears on the First Time Treatment List for a non-oncology treatment. No psychosocial assessment is indicated. MARINA Narvaez-S Allergies As of Date: 03/15/2022 Noted Allergy Reaction MORPHINE 06/20/2018 14 - Other: See Comments Comments: Spasms Date Reviewed: 03/10/2022 Reviewed by: Gil Ni APRN.PROFESSIONAL ADVISOR - Fully Assessed Reason for Visit: Social [...] Status:Closed by SHARON SAAVEDRA on 03/15/22 Normal [facility] CBC W Auto Differential pane l (Bld)on 03-10-2022 Basophils (Bld) [#/Vol] 0.05 10*3/uL Normal <0.11 [facility] Comment on above: Order Comment: Speci men Type: BLOOD SPECIMEN Ordering Facility: [facility] Address: [address] [address] Performed By: #### 5 7021-8 #### [facility] CLIA [id number] [address] [place] [address]308 Basophils/100 WBC (Bld) 0.8 % Normal [facility] Comment on above: Order Comment: Speci men Type: BLOOD SPECIMEN Ordering Facility: [facility] Address: [address] [address] Performed By: #### 5 7021-8 #### [facility] CLIA [id number] [address] [place] [address] 47899 Differential cell count method Nom (Bld) Auto Normal [facility] Comment on above: Order Comment: Speci men Type: BLOOD SPECIMEN Ordering Facility: [facility] Address: [address] Performed By: #### 5 7021-8 #### [facility] CLIA [id number] [address] [place] [address]61 Eosinophils (Bld) [#/Vol] 0.15 10*3/uL Normal <0.46 [facility] Comment on above: Order Comment: Speci men Type: BLOOD SPECIMEN Ordering Facility: [facility] Address: [address] [address] Performed By: #### 5 7021-8 #### [facility] CLIA [id number] [address] [place] [address] 26701 Eosinophils/100 WBC (Bld) 2.3 % Normal [facility] Comment on above: Order Comment: Speci men Type: BLOOD SPECIMEN Ordering Facility: [facility] Address: [address] [place], [place] [address] Performed By: #### 5 7021-8 #### [facility] CLIA [id number] [address] [place] [address]247 Erythrocyte distribution width (RBC) [Ratio] 17.4 % High 11.5-15.0 [facility] Comment on above: Order Comment: Speci men Type: BLOOD SPECIMEN Ordering Facility: [facility] Address: [address] Performed By: #### 5 7021-8 #### [facility] CLIA [id number] [address] [place] [address] 42534 Hematocrit (Bld) [Volume fraction] 29.4 % Low 36.0-46.0 [facility] Comment on above: Order Comment: Speci men Type: BLOOD SPECIMEN Ordering Facility: [facility] Address: [address] Performed By: #### 5 7021-8 #### [facility] CLIA [id number] [address] [place] [address] Hemoglobin (Bld) [Mass/Vol] 8.5 g/dL Low 11.5-15.5 [facility] Comment on above: Order Comment: Speci men Type: BLOOD SPECIMEN Ordering Facility: [facility] Address: [address] [place] [address] Performed By: #### 5 7021-8 #### [facility] CLIA [id number] [address] [place] [address] IMMATURE GRAN % 0.3 % Normal [facility] Comment on above: Order Comment: Speci men Type: BLOOD SPECIMEN Ordering Facility: [facility] Address: [address] [place] [address] Performed By: #### 5 7021-8 #### [facility] CLIA [id number] [address] [place] [address] 78706 IMMATURE GRAN ABS <0.03 Normal <0.10 [facility] Comment on above: Order Comment: Speci men Type: BLOOD SPECIMEN Ordering Facility: [facility] Address: [address] [place] [address] Performed By: #### 5 7021-8 #### [facility] CLIA [id number] [address] [place] [address] 85122 Lymphocytes (Bld) [#/Vol] 3.62 10*3/uL Normal 1.00-4.00 [facility] Comment on above: Order Comment: Speci men Type: BLOOD SPECIMEN Ordering Facility: [facility] Address: [address] [place] [address] Performed By: #### 5 7021-8 #### [facility] CLIA [id number] [address] [place] [address] 54498 Lymphocytes/100 WBC (Bld) 54.8 % Normal [facility] Comment on above: Order Comment: Speci men Type: BLOOD SPECIMEN Ordering Facility: [facility] Address: [address] Performed By: #### 5 7021-8 #### [facility] CLIA [id number] [address] [place] [address] 14718 MCH (RBC) [Entitic mass] 20.3 pg Low 26.0-34.0 [facility] Comment on above: Order Comment: Speci men Type: BLOOD SPECIMEN Ordering Facility: [facility] Address: [address] [place] [address] Performed By: #### 5 7021-8 #### [facility] CLIA [id number] [address] [place] [address] 18288 MCHC (RBC) [Mass/Vol] 28.9 g/dL Low 30.5-36.0 [facility] Comment on above: Order Comment: Speci men Type: BLOOD SPECIMEN Ordering Facility: [facility] Address: [address] [place] [address] Performed By: #### 5 7021-8 #### [facility] CLIA [id number] [address] [place] [address] 60327 MCV (RBC) [Entitic vol] 70.3 fL Low 80.0-100.0 [facility] Comment on above: Order Comment: Speci men Type: BLOOD SPECIMEN Ordering Facility: [facility] Address: [address] [place] [address] Performed By: #### 5 7021-8 #### [facility] CLIA [id number] [address] [place] [address] 69184 Monocytes (Bld) [#/Vol] 0.38 10*3/uL Normal <0.87 [facility] Comment on above: Order Comment: Speci men Type: BLOOD SPECIMEN Ordering Facility: [facility] Address: [address] [place] [address] Performed By: #### 5 7021-8 #### [facility] CLIA [id number] [address] [place] [address] 71795 Monocytes/100 WBC (Bld) 5.7 % Normal [facility] Comment on above: Order Comment: Speci men Type: BLOOD SPECIMEN Ordering Facility: [facility] Address: [address] [place], [place] [address] Performed By: #### 5 7021-8 #### [facility] CLIA [id number] [address] [place] [address] 69020 Neutrophils (Bld) [#/Vol] 2.39 10*3/uL Normal 1.45-7.50 [facility] Comment on above: Order Comment: Speci men Type: BLOOD SPECIMEN Ordering Facility: [facility] Address: [address] [place], [place] [address] Performed By: #### 5 7021-8 #### [facility] CLIA [id number] [address] [place] [address] 78397 Neutrophils/100 WBC (Bld) 36.1 % Normal [facility] Comment on above: Order Comment: Speci men Type: BLOOD SPECIMEN Ordering Facility: [facility] Address: [address] [place], [place] [address] Performed By: #### 5 7021-8 #### [facility] CLIA [id number] [address] [place] [address] 64439 Nucleated RBC (Bld) [#/Vol] 10*3/uL Normal <0.01 [facility] Comment on above: Order Comment: Speci men Type: BLOOD SPECIMEN Ordering Facility: [facility] Address: [address] [place], [place] [address] Performed By: #### 5 7021-8 #### [facility] CLIA [id number] [address] [place] [address] 37709 Nucleated RBC/100 WBC (Bld) [Ratio] 0.0 /100 WBC Normal [facility] Comment on above: Order Comment: Speci men Type: BLOOD SPECIMEN Ordering Facility: [facility] Address: [address] [place], [place] [address] Performed By: #### 5 7021-8 #### [facility] CLIA [id number] [address] [place] [address] Platelet mean volume (Bld) [Entitic vol] 8.8 fL Low 9.0-12.7 [facility] Comment on above: Order Comment: Speci men Type: BLOOD SPECIMEN Ordering Facility: [facility] Address: [address] [place] [address] Performed By: #### 5 7021-8 #### [facility] CLIA [id number] [address] [place] [address] 06788 Platelets (Bld) [#/Vol] 419 10*3/uL High 150-400 [facility] Comment on above: Order Comment: Speci men Type: BLOOD SPECIMEN Ordering Facility: [facility] Address: [address] [place] [address] Performed By: #### 5 7021-8 #### [facility] CLIA [id number] [address] [place] [address] 31588 RBC (Bld) [#/Vol] 4.18 10*6/uL Normal 3.90-5.20 [facility] Comment on above: Order Comment: Speci men Type: BLOOD SPECIMEN Ordering Facility: [facility] Address: [address] [place] [address] Performed By: #### 5 7021-8 #### [facility] CLIA [id number] [address] [place] [address]100 WBC (Bld) [#/Vol] 6.61 10*3/uL Normal 3.70-11.00 [facility] Comment on above: Order Comment: Speci men Type: BLOOD SPECIMEN Ordering Facility: [facility] Address: [address] [place] [address] Performed By: #### 5 7021-8 #### [facility] CLIA [id number] [address] [place] [address]9748 CNOVSPon 03-10-2022 CNOVSP Visit (SP) Office (HEMASA) LIVIA NOYOLA ([id number]) 1985 F Date Time Provider Department 03/10/22 2:00 PM GIL NI During your visit today, we recorded the following information about you: Temperature Pulse Respiration Blood pressure 97.9 degrees 95/minute 16/minute 130/75 Weight Height 83.4 kg 1.651 m Gil Ni APRN.CNP 03/10/2022 2:25 PM Signed NAME: Livia Noyola CLINIC NO.: [id number] DATE OF SERVICE: March 10, 2022 (Elements [...] 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 She works 7 [...] with subsequent iron deficiency. Recent laboratories from [facility] October 04, 2020 show hemoglobin of 11.6 [...] to chronic (more content not included)... Normal [facility] Comprehensive metabolic 2000 panelon 03-10-2022 Albumin [Mass/Vol] 4.0 g/dL Normal 3.9-4.9 [facility] Comment on above: Order Comment: Speci men Type: BLOOD SPECIMEN Ordering Facility: [facility] Address: [address] [address] Performed By: #### 2 4323-8 #### [facility] CLIA [id number] [address] [place] [address] 68548 ALP [Catalytic activity/Vol] 55 U/L Normal 34-123 [facility] Comment on above: Order Comment: Speci men Type: BLOOD SPECIMEN Ordering Facility: [facility] Address: [address] Performed By: #### 2 4323-8 #### [facility] CLIA [id number] [address] [place] [address] 81259 ALT [Catalytic activity/Vol] 12 U/L Normal 7-38 [facility] Comment on above: Order Comment: Speci men Type: BLOOD SPECIMEN Ordering Facility: [facility] Address: [address] Performed By: #### 2 4323-8 #### [facility] CLIA [id number] [address] [place] [address] Anion gap [Moles/Vol] 9 mmol/L Normal 9-18 [facility] Comment on above: Order Comment: Speci men Type: BLOOD SPECIMEN Ordering Facility: [facility] Address: [address] [place] [address] Performed By: #### 2 4323-8 #### [facility] CLIA [id number] [address] [place] [address] AST [Catalytic activity/Vol] 14 U/L Normal 13-35 [facility] Comment on above: Order Comment: Speci men Type: BLOOD SPECIMEN Ordering Facility: [facility] Address: [address] [place] [address] Performed By: #### 2 4323-8 #### [facility] CLIA [id number] [address] [place] [address] 38421 Bilirubin [Mass/Vol] 0.3 mg/dL Normal 0.2-1.3 [facility] Comment on above: Order Comment: Speci men Type: BLOOD SPECIMEN Ordering Facility: [facility] Address: [address] [place] [address] Performed By: #### 2 4323-8 #### [facility] CLIA [id number] [address] [place] [address] 31737 Calcium [Mass/Vol] 8.8 mg/dL Normal 8.5-10.2 [facility] Comment on above: Order Comment: Speci men Type: BLOOD SPECIMEN Ordering Facility: [facility] Address: [address] [place] [address] Performed By: #### 2 4323-8 #### [facility] CLIA [id number] [address] [place] [address] Chloride [Moles/Vol] 105 mmol/L Normal 97-105 [facility] Comment on above: Order Comment: Speci men Type: BLOOD SPECIMEN Ordering Facility: [facility] Address: [address] [place] [address] Performed By: #### 2 4323-8 #### [facility] CLIA [id number] [address] [place] [address] CO2 [Moles/Vol] 24 mmol/L Normal 22-30 [facility] Comment on above: Order Comment: Speci men Type: BLOOD SPECIMEN Ordering Facility: [facility] Address: [address] [place] [address] Performed By: #### 2 4323-8 #### [facility] CLIA [id number] [address] [place] [address] 14249 Creatinine [Mass/Vol] 0.65 mg/dL Normal 0.58-0.96 [facility] Comment on above: Order Comment: Speci men Type: BLOOD SPECIMEN Ordering Facility: [facility] Address: [address] [place] [address] Performed By: #### 2 4323-8 #### [facility] CLIA [id number] [address] [place] [address] 23965 ESTIMATED GLOMERULAR FILTRATION RATE 118 mL/min/1.73m??? Normal >=60 [facility] Comment on above: Order Comment: Speci men Type: BLOOD SPECIMEN Ordering Facility: [facility] Address: [address] [place] [address] Result Comment: Shelley mated Glomerular Filtration Rate [...] GFR. Performed By: #### 2 4323-8 #### [facility] CLIA [id number] [address] [place] [address] 50789 Glucose [Mass/Vol] 109 mg/dL High 74-99 [facility] Comment on above: Order Comment: Speci men Type: BLOOD SPECIMEN Ordering Facility: [facility] Address: [address] [place] [address] Result Comment: The [place] [employer] (ADA) provides guidance for cutoff [...] Standards of Medical Care in Diabetes 2016, [place] [employer]. Diabetes Care. 2016.39(Suppl 1). Performed By: #### 2 4323-8 #### [facility] CLIA [id number] [address] [place] [address] 18282 Potassium [Moles/Vol] 3.4 mmol/L Low 3.7-5.1 [facility] Comment on above: Order Comment: Roselyn conway Type: BLOOD SPECIMEN Ordering Facility: [facility] Address: [address] [place] [address] Performed By: #### 2 4323-8 #### [facility] CLIA [id number] [address] [place] [address] 35102 Protein [Mass/Vol] 6.5 g/dL Normal 6.3-8.0 [facility] Comment on above: Order Comment: Speci men Type: BLOOD SPECIMEN Ordering Facility: [facility] Address: [address] [place] [address] Performed By: #### 2 4323-8 #### [facility] CLIA [id number] [address] [place] [address] 65063 Sodium [Moles/Vol] 138 mmol/L Normal 136-144 [facility] Comment on above: Order Comment: Speci men Type: BLOOD SPECIMEN Ordering Facility: [facility] Address: [address] [id number] Performed By: #### 2 4323-8 #### [facility] CLIA [id number] [address] [place] [address] 66982 Urea nitrogen [Mass/Vol] 8 mg/dL Normal 7-21 [facility] Comment on above: Order Comment: Speci men Type: BLOOD SPECIMEN Ordering Facility: [facility] Address: [address] [place] [address] Performed By: #### 2 4323-8 #### [facility] CLIA [id number] [address] [place] [address] 63666 Ferritin SerPl-mCncon 2021 Ferritin [Mass/Vol] 5.4 ng/mL Low 14.7-205.1 [facility] Comment on above: Order Comment: Speci men Type: BLOOD SPECIMEN Ordering Facility: [facility] Address: [address] [place] [address] Performed By: #### 5 0190-8, 2131-9, 4-8, 2276-4 #### [facility] CLIA [id number] [address] [place] [address] [place] Folate SerPl-mCncon 03-10-20 Folate [Mass/Vol] 8.7 ng/mL Normal >4.7 [facility] Comment on above: Order Comment: Speci men Type: BLOOD SPECIMEN Ordering Facility: [facility] Address: [address] [place] [address] Performed By: #### 5 0190-8, 2-9, 2284-8, 2276-4 #### [facility] CLIA [id number] [address] [place] [address] [place] Iron and Iron binding capaci ty panelon 03-10-2022 Iron [Mass/Vol] 17 ug/dL Low 41-186 [facility] Comment on above: Order Comment: Speci men Type: BLOOD SPECIMEN Ordering Facility: [facility] Address: [address] [place] [address] Performed By: #### 5 0190-8, 2131-9, 2283-8, 6-4 #### [facility] CLIA [id number] [address] [place] [address] [place] Iron binding capacity [Mass/Vol] 422 ug/dL High 232-386 [facility] Comment on above: Order Comment: Speci men Type: BLOOD SPECIMEN Ordering Facility: [facility] Address: [address] [place] [address] Performed By: #### 5 0190-8, 2131-9, 8, 2275-4 #### [facility] CLIA [id number] [address] [place] [address] [place] Iron/TIBC [Molar ratio] 4.0 % Low 15.0-57.0 [facility] Comment on above: Order Comment: Speci men Type: BLOOD SPECIMEN Ordering Facility: [facility] Address: [address] [place] [address] Performed By: #### 5 0190-8, 2131-9, 8, 4 #### [facility] CLIA [id number] [address] [place] [address] [place] Vit B12 [facility] -28-2 022 Cobalamin (Vitamin B12) [Mass/Vol] 367 pg/mL Normal 232-1245 [facility] Comment on above: Order Comment: Speci men Type: BLOOD SPECIMEN Ordering Facility: [facility] Address: [address] [place] [address] Performed By: #### 5 0190-8, 2131-9, 8, 2275-4 #### [facility] CLIA [id number] [address] [place] [address] [place] CNPDeborah 02-18-2022 CNPN Telephone (Yours Florally) MAGALILIVAI Lacy ([id number]) 1985 F Date Time Provider Department 02/18/22 [...] [D50.0] Order(s):CBC + DIFF [SQCBCDIF] Order #: [id number] FUTURE COMP METABOLIC PANEL [SQCMP] Order #: [id number] FUTURE IRON + TIBC [SQIRON] Order #: [id number] FUTURE FERRITIN BLD [SQFERR] Order #: [id number] FUTURE VITAMIN B12 BLOOD [SQB12] Order #: [id number] FUTURE FOLATE SERUM [SQSERFOL] Order #: [id number] FUTURE Prescriptions as of 02/20/2022 - ALPRAZolam [...] Status:Closed by [place] on 02/20/22 Normal [facility] Basophils Auto (Bld) [#/Vol] Ordered By: Jennifer Duran on 02-12-2022 Basophils (Bld) [#/Vol] 0.1 10*3/uL 0.0-0.2 [facility] Basophils/100 WBC Auto (Bld) Ordered By: Jennifer Druan on 02-12-2022 Basophils/100 WBC (Bld) 1.0 % . F [facility] Blood anisocytosis detection Ordered By: Jennifer Duran on 02-12-2022 Anisocytosis Ql (Bld) Moderate [facility] Blood hemoglobin measurement (mass/volume)Ordered By: Jennifer Duran on 02-12-2022 Hemoglobin (Bld) [Mass/Vol] 8.5 g/dL 11.8-15.4 [facility] Blood leukocytes automated c ount (number/volume)Ordered By: Jennifer Duran on 02-12-2022 WBC (Bld) [#/Vol] 5.9 10*3/uL 4.5-11.0 [facility] Body fluid albumin measureme nt (mass/volume)Ordered By: Jennifer Duran on 02-12-2022 Albumin (Body fld) [Mass/Vol] 3.7 g/dL 3.2-5.[address] [facility] [address] biopsyOrdered By: Jennifer avila on 02-12-2022 Transferrin [Mass/Vol] 356 mg/dL 180-380 [facility] Creatinine and Glomerular fi ltration rate.predicted panel (S/P/Bld)Ordered By: Jennifer Duran on 02-12-2022 Creatinine [Mass/Vol] 0.72 mg/dL 0.44-1.03 [facility] Eosinophils Auto (Bld) [#/Vo l]Ordered By: Jennifer Duran on 02-12-2022 Eosinophils (Bld) [#/Vol] 0.1 10*3/uL 0.0-0.45 [facility] Eosinophils/100 WBC Auto (Bl d)Ordered By: Jennifer Duran on 02-12-2022 Eosinophils/100 WBC (Bld) 2.2 % . [facility] Erythrocyte distribution wid th Auto (RBC) [Ratio]Ordered By: Jennifer Duran on 02-12-2022 Erythrocyte distribution width (RBC) [Ratio] 17.3 % 11.9-15.3 [facility] Estimated glomerular filtrat ion rate (GFR) non- AmericanOrdered By: Jennifer Duran on 02-12-2022 GFR/1.73 sq M.predicted among non-blacks MDRD (S/P/Bld) [Vol rate/Area] > 60 mL/Min [facility] Ferritin [Mass/volume] in Se rum or PlasmaOrdered By: Jennifer Duran on 02-12-2022 Ferritin [Mass/Vol] 5.1 ng/mL 11-306.8 [facility] Globulin Calc (S) [Mass/Vol] Ordered By: Jennifer Duran on 02-12-2022 Globulin (S) [Mass/Vol] 2.9 g/dL F [facility] Hematocrit Auto (Bld) [Volum e fraction]Ordered By: Jennifer Duran on 02-12-2022 Hematocrit (Bld) [Volume fraction] 27.9 % 34.0-46.4 [facility] Hypochromia detectionOrdered By: Jennifer Duran on 02-12-2022 Hypochromia Ql (Bld) Slight [facility] Iron [Mass/volume] in Serum or PlasmaOrdered By: Jennifer Duran on 02-12-2022 Iron [Mass/Vol] 11 ug/dL 40-150 [facility] Iron binding capacity [Mass/ volume] in Serum or PlasmaOrdered By: Jennifer Duran on 02-12-2022 Iron binding capacity [Mass/Vol] 498 ug/dL 255-450 [facility] Iron saturation [Mass Fracti on] in Serum or PlasmaOrdered By: Jennifer Duran on 02-12-2022 Iron saturation [Mass fraction] 2.0 % 20-50 [facility] Laboratory - Hematology and Cell countsOrdered By: Jennifer Duran on 02-12-2022 Nucleated RBC/100 WBC (Bld) [Ratio] 0.3 % 0-0.5 [facility] Lymphocytes Auto (Bld) [#/Vo l]Ordered By: Jennifer Duran on 02-12-2022 Lymphocytes (Bld) [#/Vol] 3.0 10*3/uL 1.00-4.8 [facility] Lymphocytes/100 WBC Auto (Bl d)Ordered By: Jennifer Duran on 02-12-2022 Lymphocytes/100 WBC (Bld) 50.8 % . [facility] MCH Auto (RBC) [Entitic mass ]Ordered By: Jennifer Duran on 02-12-2022 MCH (RBC) [Entitic mass] 20.1 pg 24.7-34.3 [facility] MCHC Auto (RBC) [Mass/Vol]Or dered By: Jennifer Duran on 02-12-2022 MCHC (RBC) [Mass/Vol] 30.4 g/dL 32.0-35.0 Fir [facility] MCV Auto (RBC) [Entitic vol] Ordered By: Jennifer Duran on 02-12-2022 MCV (RBC) [Entitic vol] 66.3 fL 80-100 [facility] Monocytes Auto (Bld) [#/Vol] Ordered By: Jennifer Duran on 02-12-2022 Monocytes (Bld) [#/Vol] 0.3 10*3/uL 0.0-0.8 [facility] Monocytes/100 WBC Auto (Bld) Ordered By: Jennifer Duran on 02-12-2022 Monocytes/100 WBC (Bld) 5.7 % . [facility] Neutrophils Auto (Bld) [#/Vo l]Ordered By: Jennifer Duran on 02-12-2022 Neutrophils (Bld) [#/Vol] 2.4 10*3/uL 1.8-7.7 [facility] Neutrophils/100 WBC Auto (Bl d)Ordered By: Jennifer Duran on 02-12-2022 Neutrophils/100 WBC (Bld) 40.3 % . [facility] No Panel InformationOrdered By: Jennifer Duran on 02-12-2022 Estimated GFR () > 60 mL/Min [facility] Comment on above: GFR estimated refere nce range: According to KDOQI guidelines, <60 ml/min/1.73m2 is sufficient to diagnose a patient with chronic kidney disease. Microcytosis Moderate [facility] Creatinine Clearance (Chem N/A [facility] Platelet Estimate Normal Normal [facility] Platelet Morphology Comment Normal Normal [facility] Platelet mean volume Auto (B ld) [Entitic vol]Ordered By: Jennifer Duran on 02-12-2022 Platelet mean volume (Bld) [Entitic vol] 8.1 fL 6.3-10.7 [facility] Platelets Auto (Bld) [#/Vol] Ordered By: Jennifer Duran on 02-12-2022 Platelets (Bld) [#/Vol] 459 10*3/uL 150-450 [facility] Protein [Mass/volume] in Ser um or PlasmaOrdered By: Jennifer Duran on 02-12-2022 Protein [Mass/Vol] 6.6 g/dL 6.1-7.9 [facility] RBC Auto (Bld) [#/Vol]Ordere d By: Jennifer Duran on 02-12-2022 RBC (Bld) [#/Vol] 4.20 10*6/uL 3.60-5.00 [facility] RBC morphologyOrdered By: Pool Duran on 02-12-2022 RBC morphology finding Nom (Bld) N/A [facility] Serum or plasma alanine syed otransferase measurement without P-5'-P (enzymatic activiOrdered By: Jennifer Duran on 02-12-2022 ALT No additional P-5'-P [Catalytic activity/Vol] 69 U/L 10-60 [facility] Serum or plasma albumin/glob ulin mass ratioOrdered By: Jennifer Duran on 02-12-2022 Albumin/Globulin [Mass ratio] 1.3 {ratio} [facility] Serum or plasma alkaline zeeshan sphatase measurement (enzymatic activity/volume)Ordered By: Jennifer Duran on 02-12-2022 ALP [Catalytic activity/Vol] 73 U/L 32-92 [facility] Serum or plasma anion gap de terminationOrdered By: Jennifer Duran on 02-12-2022 Anion gap [Moles/Vol] 13.2 mmol/L 6.0-15.0 [facility] Serum or plasma aspartate am inotransferase measurement (enzymatic activity/volume)Ordered By: Jennifer Duran on 02-12-2022 AST [Catalytic activity/Vol] 42 U/L 10-42 [facility] Serum or plasma calcium donaldo urement (mass/volume)Ordered By: Jennifer Duran on 02-12-2022 Calcium [Mass/Vol] 9.3 mg/dL 8.2-10.2 [facility] Serum or plasma chloride claudia surement (moles/volume)Ordered By: Jennifer Duran on 02-12-2022 Chloride [Moles/Vol] 101 mmol/L 95-114 [facility] Serum or plasma glucose donaldo urement (mass/volume)Ordered By: Jennifer Duran on 02-12-2022 Glucose [Mass/Vol] 98 mg/dL 70-100 [facility] Comment on above: ADA recommended refe rence [...] on 02-12-2022 Potassium [Moles/Vol] 3.6 mmol/L 3.5-5.1 [facility] Serum or plasma sodium measu rement (moles/volume)Ordered By: Jennifer Duran on 02-12-2022 Sodium [Moles/Vol] 136 mmol/L 136-146 [facility] Serum or plasma total biliru bin measurement (mass/volume)Ordered By: Jennifer Duran on 02-12-2022 Bilirubin [Mass/Vol] 0.4 mg/dL 0.3-1.2 [facility] Serum or plasma total carbon dioxide measurement (moles/volume)Ordered By: Jennifer Duran on 02-12-2022 CO2 [Moles/Vol] 25.4 mmol/L 22.0-30.0 [facility] Serum or plasma urea nitroge n measurement (mass/volume)Ordered By: Jennifer Duran on 02-12-2022 Urea nitrogen [Mass/Vol] 4 mg/dL 9-23 [facility] Basophils Auto (Bld) [#/Vol] Ordered By: Kendra Persaud on 09-14-2021 Basophils (Bld) [#/Vol] 0.1 10*3/uL 0.0-0.2 [facility] Basophils/100 WBC Auto (Bld) Ordered By: Kendra Persaud on 09-14-2021 Basophils/100 WBC (Bld) 1.3 % F [facility] Bilirubin Test strip Ql (U)O rdered By: Kendra Persaud on 09-14-2021 Bilirubin Ql (U) Negative Negative [facility] Blood hemoglobin measurement (mass/volume)Ordered By: Kendra Persaud on 09-14-2021 Hemoglobin (Bld) [Mass/Vol] 9.7 g/dL 11.8-15.4 [facility] Blood leukocytes automated c ount (number/volume)Ordered By: Kendra Persaud on 09-14-2021 WBC (Bld) [#/Vol] 8.9 10*3/uL 4.5-11.0 [facility] Body fluid albumin measureme nt (mass/volume)Ordered By: Kendra Persaud on 09-14-2021 Albumin (Body fld) [Mass/Vol] 3.7 g/dL 3.2-5.5 [facility] Color Auto (U)Ordered By: Jazmin Persaud on 09-14-2021 Color (U) Yellow Yellow [facility] Creatinine and Glomerular fi ltration rate.predicted panel (S/P/Bld)Ordered By: Kendra Persaud on 09-14-2021 Creatinine [Mass/Vol] 0.71 mg/dL 0.44-1.03 [facility] Eosinophils Auto (Bld) [#/Vo l]Ordered By: Kendra Persaud on 09-14-2021 Eosinophils (Bld) [#/Vol] 0.0 10*3/uL 0.0-0.45 [facility] Eosinophils/100 WBC Auto (Bl d)Ordered By: Kendra Persaud on 09-14-2021 Eosinophils/100 WBC (Bld) 0.4 % [facility] Erythrocyte distribution wid th Auto (RBC) [Ratio]Ordered By: Kendra Persaud on 09-14-2021 Erythrocyte distribution width (RBC) [Ratio] 17.0 % 11.9-15.3 [facility] Estimated glomerular filtrat ion rate (GFR) non- AmericanOrdered By: Kendra Persaud on 09-14-2021 GFR/1.73 sq M.predicted among non-blacks MDRD (S/P/Bld) [Vol rate/Area] > 60 mL/Min [facility] Globulin Calc (S) [Mass/Vol] Ordered By: Kendra Persaud on 09-14-2021 Globulin (S) [Mass/Vol] 3.2 g/dL F [facility] HCG ( test) IA.rapi d Ql (U)Ordered By: Kendra Persaud on 09-14-2021 HCG ( test) Ql (U) Negative [facility] Hematocrit Auto (Bld) [Volum e fraction]Ordered By: Kendra Persaud on 09-14-2021 Hematocrit (Bld) [Volume fraction] 31.9 % 34.0-46.4 [facility] Ketones Auto test strip (U) [Mass/Vol]Ordered By: Kendra Persaud on 09-14-2021 Ketones (U) [Mass/Vol] Negative Negative Fi [facility] - Chemistry and C hemistry - challengeOrdered By: Kendra Persaud on 09-14-2021 Lipase [Catalytic activity/Vol] 36.0 U/L 22-51 [facility] - Hematology and Cell countsOrdered By: Kendra Persaud on 09-14-2021 Nucleated RBC/100 WBC (Bld) [Ratio] 0.0 % 0-0.5 [facility] Lymphocytes Auto (Bld) [#/Vo l]Ordered By: Kendra Persaud on 09-14-2021 Lymphocytes (Bld) [#/Vol] 4.1 10*3/uL 1.00-4.8 [facility] Lymphocytes/100 WBC Auto (Bl d)Ordered By: Kendra Persaud on 09-14-2021 Lymphocytes/100 WBC (Bld) 45.7 % [facility] MCH Auto (RBC) [Entitic mass ]Ordered By: Kendra Persaud on 09-14-2021 MCH (RBC) [Entitic mass] 21.3 pg 24.7-34.3 [facility] MCHC Auto (RBC) [Mass/Vol]Or dered By: Kendra Persaud on 09-14-2021 MCHC (RBC) [Mass/Vol] 30.4 g/dL 32.0-35.0 Fir [facility] MCV Auto (RBC) [Entitic vol] Ordered By: Kendra Persaud on 09-14-2021 MCV (RBC) [Entitic vol] 70.0 fL 80-100 F [facility] Monocytes Auto (Bld) [#/Vol] Ordered By: Kendra Persaud on 09-14-2021 Monocytes (Bld) [#/Vol] 0.7 10*3/uL 0.0-0.8 [facility] Monocytes/100 WBC Auto (Bld) Ordered By: Kendra Persaud on 09-14-2021 Monocytes/100 WBC (Bld) 7.8 % F [facility] Neutrophils Auto (Bld) [#/Vo l]Ordered By: Kendra Persaud on 09-14-2021 Neutrophils (Bld) [#/Vol] 4.0 10*3/uL 1.8-7.7 [facility] Neutrophils/100 WBC Auto (Bl d)Ordered By: Kendra Persaud on 09-14-2021 Neutrophils/100 WBC (Bld) 44.8 % [facility] Nitrite Test strip Ql (U)Ord ered By: Kendra Persaud on 09-14-2021 Nitrite Ql (U) Negative Negative [facility] No Panel InformationOrdered By: Kendra Persaud on 09-14-2021 Estimated GFR () > 60 mL/Min [facility] Comment on above: GFR estimated refere nce range: According to KDOQI guidelines, <60 ml/min/1.73m2 is sufficient to diagnose a patient with chronic kidney disease. Pharmacy Creatinine Clearance (Chem 119.44 [facility] Platelet mean volume Auto (B ld) [Entitic vol]Ordered By: Kendra Persaud on 09-14-2021 Platelet mean volume (Bld) [Entitic vol] 7.4 fL 6.3-10.7 [facility] Platelets Auto (Bld) [#/Vol] Ordered By: Kendra Persaud on 09-14-2021 Platelets (Bld) [#/Vol] 604 10*3/uL 150-450 [facility] Protein Auto test strip (U) [Mass/Vol]Ordered By: Kendra Persaud on 09-14-2021 Protein (U) [Mass/Vol] Negative Negative Fi [facility] Protein [Mass/volume] in Ser um or PlasmaOrdered By: Kendra Persaud on 09-14-2021 Protein [Mass/Vol] 6.9 g/dL 6.1-7.9 [facility] RBC Auto (Bld) [#/Vol]Ordere d By: Kendra Persaud on 09-14-2021 RBC (Bld) [#/Vol] 4.55 10*6/uL 3.60-5.00 [facility] Serum or plasma alanine syed otransferase measurement without P-5'-P (enzymatic activiOrdered By: Kendra Persaud on 09-14-2021 ALT No additional P-5'-P [Catalytic activity/Vol] 16 U/L 10-60 [facility] Serum or plasma albumin/glob ulin mass ratioOrdered By: Kendra Persaud on 09-14-2021 Albumin/Globulin [Mass ratio] 1.2 {ratio} [facility] Serum or plasma alkaline zeeshan sphatase measurement (enzymatic activity/volume)Ordered By: Kendra Persaud 09-14-2021 ALP [Catalytic activity/Vol] 48 U/L 32-92 [facility] Serum or plasma aspartate am inotransferase measurement (enzymatic activity/volume)Ordered By: Kendra Persaud on 09-14-2021 AST [Catalytic activity/Vol] 17 U/L 10-42 [facility] Serum or plasma calcium donaldo urement (mass/volume)Ordered By: Kendra Persaud on 09-14-2021 Calcium [Mass/Vol] 9.0 mg/dL 8.2-10.2 [facility] Serum or plasma chloride claudia surement (moles/volume)Ordered By: Kendra Persaud on 09-14-2021 Chloride [Moles/Vol] 105 mmol/L 95-114 [facility] Serum or plasma glucose donaldo urement (mass/volume)Ordered By: Kendra Persaud on 09-14-2021 Glucose [Mass/Vol] 94 mg/dL 70-100 [facility] Comment on above: ADA recommended refe rence rangeRandom Glucose Reference Range is dependent on time and content of last meal. Glucose of more than 200 mg/dL in a nonstressed, ambulatory subject supports the diagnosis of Diabetes Mellitus. Serum or plasma potassium me asurement (moles/volume)Ordered By: Kendra Persaud on 09-14-2021 Potassium [Moles/Vol] 3.1 mmol/L 3.5-5.1 [facility] Serum or plasma sodium measu rement (moles/volume)Ordered By: Kendra Persaud on 09-14-2021 Sodium [Moles/Vol] 139 mmol/L 136-146 [facility] Serum or plasma total biliru bin measurement (mass/volume)Ordered By: Kendra Persaud on 09-14-2021 Bilirubin [Mass/Vol] 0.5 mg/dL 0.3-1.2 [facility] Serum or plasma total carbon dioxide measurement (moles/volume)Ordered By: Kendra Persaud on 09-14-2021 CO2 [Moles/Vol] 23.7 mmol/L 22.0-30.0 [facility] Serum or plasma urea nitroge n measurement (mass/volume)Ordered By: Kendra Persaud on 09-14-2021 Urea nitrogen [Mass/Vol] 4 mg/dL 9-23 [facility] Specific gravity Auto test s trip (U) [Rel density]Ordered By: Kendra Persaud on 09-14-2021 Specific gravity (U) [Rel density] 1.004 1.001-1.030 [facility] Urine clarity by refractomet ry automatedOrdered By: Kendra Persaud on 09-14-2021 Clarity Refractometry automated (U) Clear Clear [facility] Urine glucose measurement by automated test strip (mass/volume)Ordered By: Kendra Persaud on 09-14-2021 Glucose Auto test strip (U) [Mass/Vol] Normal mg/dL Normal [facility] Urine hemoglobin detection b y automated test stripOrdered By: Kendra Persaud on 09-14-2021 Hemoglobin Auto test strip Ql (U) Negative Negative [facility] Urine leukocyte esterase det ection by automated test stripOrdered By: Kendra Persaud on 09-14-2021 Leukocyte esterase Auto test strip Ql (U) Negative Negative [facility] Urobilinogen Auto test strip (U) [Mass/Vol]Ordered By: Kendra Persaud on 09-14-2021 Urobilinogen (U) [Mass/Vol] Normal mg/dL Normal [facility] pH Auto test strip (U)Ordere d By: Kendra Persaud on 09-14-2021 pH (U) 6.5 [pH] 5.0-9.0 [facility] Basophils Auto (Bld) [#/Vol] Ordered By: Augustus Santiago on 07-04-2021 Basophils (Bld) [#/Vol] 0.1 10*3/uL 0.0-0.2 [facility] Basophils/100 WBC Auto (Bld) Ordered By: Augsutus Santiago on 07-04-2021 Basophils/100 WBC (Bld) 0.9 % F [facility] Blood hemoglobin measurement (mass/volume)Ordered By: Augustus Santiago on 07-04-2021 Hemoglobin (Bld) [Mass/Vol] 10.2 g/dL 11.8-15.4 [facility] Blood leukocytes automated c ount (number/volume)Ordered By: Augustus Santiago on 07-04-2021 WBC (Bld) [#/Vol] 6.6 10*3/uL 4.5-11.0 [facility] CT biopsyOrdered By: Augustus powell on 07-04-2021 Transferrin [Mass/Vol] 360 mg/dL 180-380 Fi [facility] Creatinine and Glomerular fi ltration rate.predicted panel (S/P/Bld)Ordered By: Augustus Santiago on 07-04-2021 Creatinine [Mass/Vol] 0.69 mg/dL 0.44-1.03 [facility] Eosinophils Auto (Bld) [#/Vo l]Ordered By: Augustus Santiago on 07-04-2021 Eosinophils (Bld) [#/Vol] 0.1 10*3/uL 0.0-0.45 [facility] Eosinophils/100 WBC Auto (Bl d)Ordered By: Augustus aSntiago on 07-04-2021 Eosinophils/100 WBC (Bld) 1.2 % [facility] Erythrocyte distribution wid th Auto (RBC) [Ratio]Ordered By: Augustus Santiago on 07-04-2021 Erythrocyte distribution width (RBC) [Ratio] 17.2 % 11.9-15.3 [facility] Estimated glomerular filtrat ion rate (GFR) non- AmericanOrdered By: Augustus Santiago on 07-04-2021 GFR/1.73 sq M.predicted among non-blacks MDRD (S/P/Bld) [Vol rate/Area] > 60 mL/Min [facility] Hematocrit Auto (Bld) [Volum e fraction]Ordered By: Augustus Santiago on 07-04-2021 Hematocrit (Bld) [Volume fraction] 32.0 % 34.0-46.4 [facility] Iron [Mass/volume] in Serum or PlasmaOrdered By: Augustus Santiago on 07-04-2021 Iron [Mass/Vol] 10 ug/dL 40-150 [facility] Iron binding capacity [Mass/ volume] in Serum or PlasmaOrdered By: Augustus Santiago on 07-04-2021 Iron binding capacity [Mass/Vol] 504 ug/dL 255-450 [facility] Iron saturation [Mass Fracti on] in Serum or PlasmaOrdered By: Augustus Santiago on 07-04-2021 Iron saturation [Mass fraction] 1.0 % 20-50 [facility] Laboratory - Hematology and Cell countsOrdered By: Augustus Santiago on 07-04-2021 Nucleated RBC/100 WBC (Bld) [Ratio] 0.0 % 0-0.5 [facility] Lymphocytes Auto (Bld) [#/Vo l]Ordered By: Augustus Santiago on 07-04-2021 Lymphocytes (Bld) [#/Vol] 1.9 10*3/uL 1.00-4.8 [facility] Lymphocytes/100 WBC Auto (Bl d)Ordered By: Augustus Santiago on 07-04-2021 Lymphocytes/100 WBC (Bld) 28.4 % [facility] MCH Auto (RBC) [Entitic mass ]Ordered By: Augustus Santiago on 07-04-2021 MCH (RBC) [Entitic mass] 22.7 pg 24.7-34.3 [facility] MCHC Auto (RBC) [Mass/Vol]Or dered By: Augustus Santiago on 07-04-2021 MCHC (RBC) [Mass/Vol] 31.9 g/dL 32.0-35.0 Fir [facility] MCV Auto (RBC) [Entitic vol] Ordered By: Augustus Santiago on 07-04-2021 MCV (RBC) [Entitic vol] 71.3 fL 80-100 F [facility] Monocytes Auto (Bld) [#/Vol] Ordered By: Augustus Santiago on 07-04-2021 Monocytes (Bld) [#/Vol] 0.5 10*3/uL 0.0-0.8 [facility] Monocytes/100 WBC Auto (Bld) Ordered By: Augustus Santiago on 07-04-2021 Monocytes/100 WBC (Bld) 7.6 % F [facility] Neutrophils Auto (Bld) [#/Vo l]Ordered By: Augustus Santigao on 07-04-2021 Neutrophils (Bld) [#/Vol] 4.1 10*3/uL 1.8-7.7 [facility] Neutrophils/100 WBC Auto (Bl d)Ordered By: Augustus Santiago on 07-04-2021 Neutrophils/100 WBC (Bld) 61.9 % [facility] No Panel InformationOrdered By: Augustus Santiago on 07-04-2021 D-Dimer Quantitative (PE/DVT) < 200 ng/mL 0-243 [facility] Comment on above: The reference range [...] conditions. Estimated GFR () > 60 mL/Min [facility] Comment on above: GFR estimated refere nce range: According to KDOQI guidelines, <60 ml/min/1.73m2 is sufficient to diagnose a patient with chronic kidney disease. Pharmacy Creatinine Clearance (Chem N/A [facility] Platelet mean volume Auto (B ld) [Entitic vol]Ordered By: Augustus Santiago on 07-04-2021 Platelet mean volume (Bld) [Entitic vol] 7.9 fL 6.3-10.7 [facility] Platelets Auto (Bld) [#/Vol] Ordered By: Augustus Santiago on 07-04-2021 Platelets (Bld) [#/Vol] 457 10*3/uL 150-450 [facility] RBC Auto (Bld) [#/Vol]Ordere d By: Augustus Santiago on 07-04-2021 RBC (Bld) [#/Vol] 4.48 10*6/uL 3.60-5.00 [facility] Serum or plasma calcium donaldo urement (mass/volume)Ordered By: Augustus Santiago on 07-04-2021 Calcium [Mass/Vol] 8.9 mg/dL 8.2-10.2 [facility] Serum or plasma chloride claudia surement (moles/volume)Ordered By: Augustus Santiago on 07-04-2021 Chloride [Moles/Vol] 105 mmol/L 95-114 [facility] Serum or plasma glucose donaldo urement (mass/volume)Ordered By: Augustus Santiago on 07-04-2021 Glucose [Mass/Vol] 110 mg/dL 70-100 [facility] Comment on above: ADA recommended refe rence rangeRandom Glucose Reference Range is dependent on time and content of last meal. Glucose of more than 200 mg/dL in a nonstressed, ambulatory subject supports the diagnosis of Diabetes Mellitus. Serum or plasma potassium me asurement (moles/volume)Ordered By: Augustus Santiago on 07-04-2021 Potassium [Moles/Vol] 3.5 mmol/L 3.5-5.1 [facility] Serum or plasma sodium measu rement (moles/volume)Ordered By: Augustus Santiago on 07-04-2021 Sodium [Moles/Vol] 136 mmol/L 136-146 [facility] Serum or plasma total carbon dioxide measurement (moles/volume)Ordered By: Augustus Santiago on 07-04-2021 CO2 [Moles/Vol] 23.0 mmol/L 22.0-30.0 [facility] Serum or plasma urea nitroge n measurement (mass/volume)Ordered By: Augustus Santiago on 07-04-2021 Urea nitrogen [Mass/Vol] 5 mg/dL 03-05 [facility] Cardiac Stress Teston 2020 Cardiac Stress Test [address], [address] [place] [address] TRANSTHORACIC ECHOCARDIOGRAM REPORT Patient Name: LIVIA NOYOLA Reading Physician: [id number] Raphael Alas MD Study Date: 08/06/2020 Referring Physician: Ranulfo CANTU MRN/PID: [id number] PCP: Jennifer Duran Accession/Order#: [id number] Department Location: [facility] Date of : 1985 Fellow: Gender: F Nurse: Admit Date: Shop Welder: Josephine Newton [facility] [email or web address]], T Height: 165.10 cm CC Report to: Weight: 88.00 kg Study Type: Echocardiogram BSA: 1.95 m2 Diagnosis/ICD: R06.00-Dyspnea, unspecified; R00.0-Tachycardia, unspecified Indication: Obesity, Family History of CAD Procedure/CPT: Echo Complete w Full [id number] Study Detail: The following Echo studies were [...] 0.9 m/s (0.6-0.9m/s) PV Max P.0 mmHg [id number] Raphael Alas MD Electronically signed on 08/07/2020 at 4:26:[address] [facility] Vital Signs Date Time Vital Sign Value Performing Clinician Facility 09-30-2023 02:09-0400 Diastolic blood pressure 89 mm[Hg] [facility] 09-30-2023 02:09-0400 Heart rate 124 /min [facility] 09-30-2023 02:09-0400 Mean blood pressure 109 mm[Hg] [facility] 09-30-2023 02:09-0400 Respiratory rate 20 /min [facility] 09-30-2023 02:09-0400 SaO2% (BldA) [Mass fraction] 98 % [facility] 09-30-2023 02:09-0400 Systolic blood pressure 149 mm[Hg] Ritesh Ivana [facility] 09-30-2023 01:00-0400 Diastolic blood pressure 82 mm[Hg] Ritesh Ivana [facility] 09-30-2023 01:00-0400 Heart rate 118 /min Ritesh Ivana [facility] 09-30-2023 01:00-0400 Mean blood pressure 104 mm[Hg] Ritesh Ivana [facility] 09-30-2023 01:00-0400 SaO2% (BldA) [Mass fraction] 99 % Ritesh Ivana [facility] 09-30-2023 01:00-0400 Systolic blood pressure 147 mm[Hg] Ritesh Ivana [facility] 09-29-2023 23:40-0400 Body temperature 97.7 [degF] Irtesh Ivana [facility] 09-29-2023 23:40-0400 Diastolic blood pressure 92 mm[Hg] Ritesh Ivana [facility] 09-29-2023 23:40-0400 Heart rate 139 /min Ritesh Ivana [facility] 09-29-2023 23:40-0400 Respiratory rate 20 /min Ritesh Ivana [facility] 09-29-2023 23:40-0400 SaO2% (BldA) [Mass fraction] 100 % Ritesh Ivana [facility] 09-29-2023 23:40-0400 Systolic blood pressure 144 mm[Hg] Rietsh Ivana [facility] 09-26-2023 18:00-0400 Heart rate 119 /min Konstantin Zohaib [facility] 09-26-2023 18:00-0400 SaO2% (BldA) [Mass fraction] 96 % Konstantin Zohaib [facility] 09-26-2023 17:30-0400 Diastolic blood pressure 124 mm[Hg] Konstantin Zohaib [facility] 09-26-2023 17:30-0400 Heart rate 105 /min Konstantin Zohaib [facility] 09-26-2023 17:30-0400 Mean blood pressure 129 mm[Hg] Konstantin Zohaib [facility] 09-26-2023 17:30-0400 SaO2% (BldA) [Mass fraction] 100 % Konstantin Zohaib [facility] 09-26-2023 17:30-0400 Systolic blood pressure 139 mm[Hg] Konstantin Zohaib [facility] 09-26-2023 16:48-0400 Diastolic blood pressure 82 mm[Hg] Konstantin Zohaib [facility] 09-26-2023 16:48-0400 Heart rate 126 /min Konstantin Zohaib [facility] 09-26-2023 16:48-0400 Mean blood pressure 101 mm[Hg] Konstantin Zohaib [facility] 09-26-2023 16:48-0400 Respiratory rate 18 /min Konstantin Zohaib [facility] 09-26-2023 16:48-0400 SaO2% (BldA) [Mass fraction] 100 % Konstantin Zohaib [facility] 09-26-2023 16:48-0400 Systolic blood pressure 139 mm[Hg] Konstantin Zohaib [facility] 09-26-2023 16:30-0400 Diastolic blood pressure 96 mm[Hg] Konstantin Penny [facility] 09-26-2023 16:30-0400 Mean blood pressure 105 mm[Hg] Konstantin Penny [facility] 09-26-2023 16:30-0400 Respiratory rate 18 /min Konstantin Penny [facility] 09-26-2023 16:30-0400 Systolic blood pressure 122 mm[Hg] Konstantin Penny [facility] 09-26-2023 14:45-0400 Respiratory rate 18 /min Konstantin Penny [facility] 09-26-2023 14:13-0400 Body temperature 98.6 [degF] Konstanitn Penny [facility] 07-31-2023 18:01-0500 Diastolic blood pressure 87 mm[Hg] Jignesh Dumont [facility] 07-31-2023 18:01-0500 Heart rate 121 /min Jignesh Tim [facility] 07-31-2023 18:01-0500 Mean blood pressure 99 mm[Hg] Jignesh Tim [facility] 07-31-2023 18:01-0500 Respiratory rate 16 /min Jignesh Tim [facility] 07-31-2023 18:01-0500 SaO2% (BldA) [Mass fraction] 99 % Jignesh Tim [facility] 07-31-2023 18:01-0500 Systolic blood pressure 123 mm[Hg] Jignesh Tim [facility] 07-31-2023 17:00-0500 Diastolic blood pressure 77 mm[Hg] Jignesh Tim [facility] 07-31-2023 17:00-0500 Heart rate 96 /min Jignesh Tim [facility] 07-31-2023 17:00-0500 Mean blood pressure 92 mm[Hg] Jignesh Tim [facility] 07-31-2023 17:00-0500 Systolic blood pressure 122 mm[Hg] Jignesh Tim [facility] 07-31-2023 16:07-0500 Diastolic blood pressure 90 mm[Hg] Jignesh Tim [facility] 07-31-2023 16:07-0500 Heart rate 117 /min Jignesh Tim [facility] 07-31-2023 16:07-0500 Mean blood pressure 105 mm[Hg] Jignesh Tim [facility] 07-31-2023 16:07-0500 Respiratory rate 19 /min Jignesh Tim [facility] 07-31-2023 16:07-0500 SaO2% (BldA) [Mass fraction] 100 % Jignesh Dumont [facility] 07-31-2023 16:07-0500 Systolic blood pressure 135 mm[Hg] Jignesh Tim [facility] 07-31-2023 16:06-0500 Respiratory rate 18 /min Jignesh Tim [facility] 07-31-2023 15:34-0500 Body temperature 97.88 [degF] Jignesh Tim [facility] 07-31-2023 15:34-0500 Heart rate 136 /min Jignesh Tim [facility] 07-31-2023 15:34-0500 Respiratory rate 18 /min Jignesh Dumont [facility] 07-19-2023 12:40-0500 Body height 165.1 cm Jennifer Duran Other [facility] [employer] Other 04-30-2023 18:19-0500 Diastolic blood pressure 82 mm[Hg] DO Jennifer Duran Work Phone: [facility] 04-30-2023 18:19-0500 Heart rate 128 /min DO Jennifer Duran Work Phone: [facility] 04-30-2023 18:19-0500 Respiratory rate 18 /min DO Jennifer Duran Work Phone: [facility] 04-30-2023 18:19-0500 SaO2% (BldA) [Mass fraction] 99 % DO Jennifer Duran Work Phone: [facility] 04-30-2023 18:19-0500 Systolic blood pressure 116 mm[Hg] DO Jennifer Duran Work Phone: [facility] 04-30-2023 16:43-0500 Body height 165.1 cm DO Jennifer Duran Work Phone: [facility] 04-30-2023 16:43-0500 Body temperature 98.1 [degF] DO Jennifer Duran Work Phone: [facility] 04-30-2023 16:43-0500 Body weight 62.3 kg DO Jennifer Duran Work Phone: [facility] 04-24-2023 15:51-0500 Diastolic blood pressure 81 mm[Hg] Jignesh Dumont [facility] 04-24-2023 15:51-0500 Heart rate 98 /min Jignesh Dumont [facility] 04-24-2023 15:51-0500 Mean blood pressure 94 mm[Hg] Jignesh Dumont [facility] 04-24-2023 15:51-0500 Respiratory rate 17 /min Jignesh Tim [facility] 04-24-2023 15:51-0500 SaO2% (BldA) [Mass fraction] 99 % Jignesh Tim [facility] 04-24-2023 15:51-0500 Systolic blood pressure 120 mm[Hg] Jignesh Tim [facility] 04-24-2023 15:00-0500 Diastolic blood pressure 72 mm[Hg] Jignesh Tim [facility] 04-24-2023 15:00-0500 Heart rate 85 /min Jignesh Tim [facility] 04-24-2023 15:00-0500 Mean blood pressure 87 mm[Hg] Jignesh Tim [facility] 04-24-2023 15:00-0500 Respiratory rate 16 /min Jignesh Tim [facility] 04-24-2023 15:00-0500 SaO2% (BldA) [Mass fraction] 96 % Jignesh Tim [facility] 04-24-2023 15:00-0500 Systolic blood pressure 117 mm[Hg] Jignesh Tim [facility] 04-24-2023 14:00-0500 Diastolic blood pressure 88 mm[Hg] Jignesh Tim [facility] 04-24-2023 14:00-0500 Heart rate 99 /min Jignesh Tim [facility] 04-24-2023 14:00-0500 Mean blood pressure 100 mm[Hg] Jignesh Tim [facility] 04-24-2023 14:00-0500 Respiratory rate 18 /min Jignesh Tim [facility] 04-24-2023 14:00-0500 SaO2% (BldA) [Mass fraction] 97 % Jignesh Dumont [facility] 04-24-2023 14:00-0500 Systolic blood pressure 124 mm[Hg] Jignesh Dumont [facility] 04-24-2023 13:29-0500 Body temperature 99.14 [degF] Jignesh Dumont [facility] 04-24-2023 13:29-0500 Heart rate 118 /min Jignesh Dumont [facility] 04-03-2023 00:20-0400 Diastolic blood pressure 70 mm[Hg] DO Jennifer Duran Work Phone: [facility] 04-03-2023 00:20-0400 Heart rate 80 /min DO Jennifer Duran Work Phone: [facility] 04-03-2023 00:20-0400 SaO2% (BldA) [Mass fraction] 98 % DO Jennfier Duran Work Phone: [facility] 04-03-2023 00:20-0400 Systolic blood pressure 122 mm[Hg] DO Jennifer Duran Work Phone: [facility] 04-02-2023 21:48-0400 Diastolic blood pressure 75 mm[Hg] DO Jennifer Duran Work Phone: [facility] 04-02-2023 21:48-0400 Heart rate 90 /min DO Jennifer Duran Work Phone: [facility] 04-02-2023 21:48-0400 Respiratory rate 20 /min DO Jennifer Duran Work Phone: [facility] 04-02-2023 21:48-0400 SaO2% (BldA) [Mass fraction] 98 % DO Jennifer Duran Work Phone: [facility] 04-02-2023 21:48-0400 Systolic blood pressure 109 mm[Hg] DO Jennifer Girvin Work Phone: [facility] 04-02-2023 20:23-0400 Body height 165.1 cm DO Jennifer Girvin Work Phone: [facility] 04-02-2023 20:23-0400 Body temperature 98.2 [degF] DO Jennifer Girvin Work Phone: [facility] 04-02-2023 20:23-0400 Body weight 81.64 kg DO Jennifer Girvin Work Phone: [facility] 03-29-2023 16:11-0400 Body temperature 97.8 [degF] DO Jennifer Girvin Work Phone: [facility] 03-29-2023 16:11-0400 Diastolic blood pressure 79 mm[Hg] DO Jennifer Kendallivelisse Work Phone: [facility] 03-29-2023 16:11-0400 Heart rate 104 /min DO Jennifer Girivelisse Work Phone: [facility] 03-29-2023 16:11-0400 Respiratory rate 16 /min DO Jennifer Girivelisse Work Phone: [facility] 03-29-2023 16:11-0400 SaO2% (BldA) [Mass fraction] 98 % DO Jennifer Kendallivelisse Work Phone: [facility] 03-29-2023 16:11-0400 Systolic blood pressure 123 mm[Hg] DO Jennifer Girvin Work Phone: [facility] 03-29-2023 06:35-0400 Body height 165.1 cm DO Jennifer Girvin Work Phone: [facility] 03-29-2023 06:35-0400 Body weight 87.5 kg DO Jennifer Girvin Work Phone: [facility] 03-29-2023 05:41-0400 Diastolic blood pressure 85 mm[Hg] DO Jennifer Girvin Work Phone: [facility] 03-29-2023 05:41-0400 Heart rate 110 /min DO Jennifer Duran Work Phone: [facility] 03-29-2023 05:41-0400 Respiratory rate 18 /min DO Jennifer Duran Work Phone: [facility] 03-29-2023 05:41-0400 SaO2% (BldA) [Mass fraction] 100 % DO Jennifer Duran Work Phone: [facility] 03-29-2023 05:41-0400 Systolic blood pressure 160 mm[Hg] DO Jennifer Duran Work Phone: [facility] 03-29-2023 01:39-0400 Body height 165.1 cm DO Jennifer Duran Work Phone: [facility] 03-29-2023 01:39-0400 Body temperature 97.2 [degF] DO Jennifer Duran Work Phone: [facility] 03-29-2023 01:39-0400 Body weight 87 kg DO Jennifer Duran Work Phone: [facility] 02-06-2023 04:00-0400 Diastolic blood pressure 74 mm[Hg] DO Jennifer Duran Work Phone: [facility] 02-06-2023 04:00-0400 Heart rate 79 /min DO Jennifer Duran Work Phone: [facility] 02-06-2023 04:00-0400 Respiratory rate 15 /min DO Jennifer Duran Work Phone: [facility] 02-06-2023 04:00-0400 SaO2% (BldA) [Mass fraction] 99 % DO Jennifer Duran Work Phone: [facility] 02-06-2023 04:00-0400 Systolic blood pressure 119 mm[Hg] DO Jennifer Duran Work Phone: [facility] 02-05-2023 23:41-0400 Body height 165.1 cm DO Jennifer Duran Work Phone: [facility] 02-05-2023 23:41-0400 Body temperature 98 [degF] DO Jennifer Duran Work Phone: [facility] 02-05-2023 23:41-0400 Body weight 81.64 kg DO Jennifer Duran Work Phone: [facility] 01-12-2023 14:40-0400 Body height 165.1 cm Jennifer Duran Other [facility] [employer] Other 01-12-2023 14:40-0400 Body mass index (BMI) [Ratio] 33.44 kg/m2 Jennifer Duran Other [facility] Other 01-12-2023 14:40-0400 Body temperature 99.5 [degF] Jennifer Duran Other [facility] Other 01-12-2023 14:40-0400 Body weight 91.17 kg Jennifer Duran Other [facility] Other 01-12-2023 14:40-0400 Diastolic blood pressure 78 mm[Hg] Jennifer Duran Other [facility] Other 01-12-2023 14:40-0400 Respiratory rate 18 /min Jennifer Duran Other [facility] Other 01-12-2023 14:40-0400 SaO2% (BldA) [Mass fraction] 97 % Jennifer Duran Other [facility] Other 01-12-2023 14:40-0400 Systolic blood pressure 110 mm[Hg] Jennifer Enochivelisse Other [facility] Other 10-11-2022 16:20-0400 Body height 165.1 cm Jennifer Duran Other [facility] Other 07-12-2022 16:20-0500 Body height 165.1 cm Jennifer Duran Other [facility] Other 07-12-2022 16:20-0500 Body mass index (BMI) [Ratio] 31.2 kg/m2 Jennifer Duran Other [facility] Other 07-12-2022 16:20-0500 Body temperature 97.2 [degF] Jennifer Duran Other [facility] Other 07-12-2022 16:20-0500 Body weight 85.05 kg Jennifer Duran Other [facility] Other 07-12-2022 16:20-0500 Diastolic blood pressure 74 mm[Hg] Jennifer Duran Other [facility] Other 07-12-2022 16:20-0500 Respiratory rate 18 /min Jennifer Duran Other [facility] Other 07-12-2022 16:20-0500 SaO2% (BldA) [Mass fraction] 99 % Jennifer Duran Other [facility] Other 07-12-2022 16:20-0500 Systolic blood pressure 106 mm[Hg] Jennifer Duran Other [facility] Other 04-28-2022 04:00-0500 Diastolic blood pressure 70 mm[Hg] DO Jennifer Wilber Work Phone: [facility] 04-28-2022 04:00-0500 Heart rate 81 /min DO Jennifer Wilber Work Phone: [facility] 04-28-2022 04:00-0500 SaO2% (BldA) [Mass fraction] 96 % DO Jennifer Duran Work Phone: [facility] 04-28-2022 04:00-0500 Systolic blood pressure 110 mm[Hg] DO Jennifer Duran Work Phone: [facility] 04-28-2022 03:56-0500 Body height 165.1 cm DO Jennifer Duran Work Phone: [facility] 04-28-2022 03:56-0500 Body weight 80 kg DO Jennifer Duran Work Phone: [facility] 04-28-2022 03:56-0500 Respiratory rate 18 /min DO Jennifer Duran Work Phone: [facility] 04-28-2022 00:13-0500 Body temperature 97.2 [degF] DO Jennifer Duran Work Phone: [facility] 04-12-2022 15:40-0400 Body height 165.1 cm Jennifer Duran Other [facility] Other 04-12-2022 15:40-0400 Body mass index (BMI) [Ratio] 30.37 kg/m2 Jennifer Duran Other [facility] Other 04-12-2022 15:40-0400 Body temperature 98.8 [degF] Jennifer Duran Other [facility] Other 04-12-2022 15:40-0400 Body weight 82.78 kg Jennifer Duran Other [facility] Other 04-12-2022 15:40-0400 Diastolic blood pressure 76 mm[Hg] Jennifer Duran Other [facility] Other 04-12-2022 15:40-0400 Respiratory rate 18 /min Jennifer Wilber Other [facility] Other 04-12-2022 15:40-0400 SaO2% (BldA) [Mass fraction] 98 % Jennifer Duran Other [facility] Other 04-12-2022 15:40-0400 Systolic blood pressure 110 mm[Hg] Jennifer Duran Other [facility] Other 04-09-2022 13:32-0400 Body temperature 97.59 [degF] Chair Roosevelt Work Phone: [facility] 04-09-2022 13:32-0400 Diastolic blood pressure 64 mm[Hg] Chair Roosevelt Work Phone: [facility] 04-09-2022 13:32-0400 Heart rate 114 /min Chair Roosevelt Work Phone: [facility] 04-09-2022 13:32-0400 Respiratory rate 18 /min Chair Roosevelt Work Phone: [facility] 04-09-2022 13:32-0400 SaO2% (BldA) [Mass fraction] 97 % Chair Patria Work Phone: [facility] 04-09-2022 13:32-0400 Systolic blood pressure 116 mm[Hg] Chair Roosevelt Work Phone: [facility] 03-26-2022 13:54-0400 Body temperature 97.9 [degF] Chair Roosevelt Work Phone: [facility] 03-26-2022 13:54-0400 Diastolic blood pressure 75 mm[Hg] Chair Patria Work Phone: [facility] 03-26-2022 13:54-0400 Heart rate 82 /min Chair Roosevelt Work Phone: [facility] 03-26-2022 13:54-0400 Respiratory rate 18 /min Chair Roosevelt Work Phone: [facility] 03-26-2022 13:54-0400 SaO2% (BldA) [Mass fraction] 100 % Chair Patria Work Phone: [facility] 03-26-2022 13:54-0400 Systolic blood pressure 106 mm[Hg] Chair España Work Phone: [facility] 03-10-2022 13:54-0400 Body height 165.1 cm Gil Ni APRN.PROFESSIONAL ADVISOR Work Phone: [facility] 03-10-2022 13:54-0400 Body temperature 97.9 [degF] Gil Ni APRN.PROFESSIONAL ADVISOR Work Phone: [facility] 03-10-2022 13:54-0400 Body weight 83.37 kg Gil Ni APRN.PROFESSIONAL ADVISOR Work Phone: [facility] 03-10-2022 13:54-0400 Diastolic blood pressure 75 mm[Hg] Gil Ni APRN.PROFESSIONAL ADVISOR Work Phone: [facility] 03-10-2022 13:54-0400 Heart rate 95 /min Gil Ni APRN.PROFESSIONAL ADVISOR Work Phone: [facility] 03-10-2022 13:54-0400 Respiratory rate 16 /min Gil Ni APRN.PROFESSIONAL ADVISOR Work Phone: [facility] 03-10-2022 13:54-0400 SaO2% (BldA) [Mass fraction] 100 % Gil Ni APRN.PROFESSIONAL ADVISOR Work Phone: [facility] 03-10-2022 13:54-0400 Systolic blood pressure 130 mm[Hg] Gil Ni APRN.PROFESSIONAL ADVISOR Work Phone: [facility] 12-04-2021 12:49-0400 Blood Pressure Location Yamilka JiménezChemistDirect [facility] 12-04-2021 12:49-0400 Body temperature 98.42 [degF] Yamilka SerranoUGOBE [facility] 12-04-2021 12:49-0400 Diastolic blood pressure 82 mm[Hg] Yamilka Orzech [facility] 12-04-2021 12:49-0400 Heart rate 110 /min Yamilka Orzech [facility] 12-04-2021 12:49-0400 SaO2% (BldA) [Mass fraction] 99 % Yamilka Orzech [facility] 12-04-2021 12:49-0400 Systolic blood pressure 126 mm[Hg] Yamilka Orzech [facility] 10-16-2021 09:10-0400 Body height 165.1 cm Jennifer Duran Other [facility] Other 09-14-2021 19:31-0400 Diastolic blood pressure 82 mm[Hg] DO Jennifer Duran Work Phone: [facility] 09-14-2021 19:31-0400 Heart rate 87 /min DO Jennifer Duran Work Phone: [facility] 09-14-2021 19:31-0400 Respiratory rate 18 /min DO Jennifer Duran Work Phone: [facility] 09-14-2021 19:31-0400 SaO2% (BldA) [Mass fraction] 99 % DO Jennifer Duran Work Phone: [facility] 09-14-2021 19:31-0400 Systolic blood pressure 126 mm[Hg] DO Jennifer Duran Work Phone: [facility] 09-14-2021 14:45-0400 Body height 165.1 cm DO Jennifer Duran Work Phone: [facility] 09-14-2021 14:45-0400 Body mass index (BMI) [Ratio] 30.7 kg/m2 DO Jennifer Duran Work Phone: [facility] 09-14-2021 14:45-0400 Body temperature 98 [degF] DO Jennifer Duran Work Phone: [facility] 09-14-2021 14:45-0400 Body weight 83.91 kg DO Jennifer Duran Work Phone: [facility] 04-21-2021 16:20-0500 Body height 165.1 cm Jennifer Duran Other [facility] [employer] Other 04-21-2021 16:20-0500 Body mass index (BMI) [Ratio] 32.28 kg/m2 Jennifer Duran Other [facility] Other 04-21-2021 16:20-0500 Body temperature 98.3 [degF] Jennifer Duran Other [facility] Other 04-21-2021 16:20-0500 Body weight 88 kg Jennifer Duran Other [facility] Other 04-21-2021 16:20-0500 Diastolic blood pressure 82 mm[Hg] Jennifer Duran Other [facility] Other 04-21-2021 16:20-0500 SaO2% (BldA) [Mass fraction] 98 % Jennifer Enochivelisse Other [facility] Other 04-21-2021 16:20-0500 Systolic blood pressure 124 mm[Hg] Jennifer Enochivelisse Other [facility] Other Encounters Encounter Date Encounter Type Care Provider Facility Start: 10-19-2023 End: 10-19-2023 ambulatory TARUN CLEVELAND Not Available Start: 10-18-2023 End: 10-18-2023 ambulatory [facility] Work Phone: Start: 10-18-2023 End: 10-18-2023 Patient encounter procedure [facility] [place] Work Phone: Start: 09-30-2023 End: 09-30-2023 Emergency department patient visit Ritesh Heath Facility:[facility] Start: 09-29-2023 End: 09-30-2023 Emergency department patient visit Ritesh Heath [facility] Start: 09-26-2023 End: 09-26-2023 Emergency department patient visit Konstantin Penny Facility:[facility] Start: 09-26-2023 End: 09-26-2023 Emergency department patient visit Konstantin Penny [facility] Start: 09-06-2023 End: 09-06-2023 Emergency department [facility] Start: 07-31-2023 End: 07-31-2023 Emergency department patient visit Jignesh Dumont Facility:[facility] Start: 07-31-2023 End: 07-31-2023 Emergency department patient visit Jignesh Dumont [facility] Start: 07-28-2023 End: 07-28-2023 ambulatory PHYSICIAN NO [facility] Work Phone: Start: 07-28-2023 End: 07-28-2023 Patient encounter procedure PHYSICIAN NO [facility] [place] Work Phone: Start: 07-19-2023 End: 07-19-2023 ambulatory Jennifer Duran Other [facility] Other Start: 07-19-2023 Telephone encounter Jennifer Duran [facility] [place] Start: 06-22-2023 End: 06-23-2023 Emergency department patient visit EVGENY SEN MD Facility:[facility] Start: 06-07-2023 End: 06-07-2023 ambulatory Jennifer Duran Other [facility] Other Start: 06-07-2023 Telephone encounter Jennifer Duran [facility] Start: 05-30-2023 End: 05-30-2023 Emergency department patient visit RONYRICO Leos LES [facility] Start: 05-17-2023 End: 05-18-2023 Emergency department patient visit Ritesh Heath Facility:[facility] Start: 05-16-2023 End: 05-16-2023 ambulatory Jennifer Duran Other [facility] Other Start: 05-16-2023 Telephone encounter Jennifer Duran [facility] Start: 04-30-2023 End: 04-30-2023 Emergency department patient visit Elier Jackson Facility:[facility] Start: 04-30-2023 End: 04-30-2023 Emergency department patient visit DO Jennifer Duran Work Phone: [facility] Work Phone: Start: 04-24-2023 End: 04-24-2023 Emergency department patient visit Jignesh Dumont Facility:[facility] Start: 04-24-2023 End: 04-24-2023 Emergency department patient visit Jignesh Dumont [facility] Start: 04-18-2023 End: 04-18-2023 ambulatory Jennifer Duran Other [facility] Other Start: 04-18-2023 Telephone encounter Jennifer Duran [facility] [place] Start: 04-11-2023 End: 04-11-2023 ambulatory Jennifer Duran Other [facility] Other Start: 04-11-2023 Telephone encounter Jennifer Wilber [facility] [place] Start: 04-04-2023 End: 04-04-2023 ambulatory Jennifer Duran Other [facility] Other Start: 04-04-2023 Telephone encounter Jennifer Duran [facility] [place] Start: 04-02-2023 End: 04-03-2023 Emergency department patient visit Jennifer Wilber Facility:[facility] Start: 04-02-2023 End: 04-03-2023 Emergency department patient visit DO Jennifer Duran Work Phone: [facility] Work Phone: Start: 04-01-2023 End: 04-01-2023 ambulatory Jennifer Duran Other [facility] Other Start: 04-01-2023 Telephone encounter Jennifer Duran [facility] Start: 03-29-2023 Telephone encounter Jennifer Wilber [facility] [place] Start: 03-29-2023 End: 03-29-2023 ambulatory Kiko Saenz [facility] Other Start: 03-29-2023 End: 03-29-2023 Evaluation and management of inpatient DO Jennifer Duran Work Phone: [facility] Work Phone: Start: 03-29-2023 End: 03-29-2023 observation encounter DO Jennifer Duran Work Phone: [facility] Work Phone: Start: 03-13-2023 End: 03-13-2023 ambulatory Jennifer Duran Facility:[facility] Start: 03-13-2023 End: 03-13-2023 ambulatory DO Jennifer Duran Work Phone: [facility] Work Phone: Start: 03-13-2023 End: 03-13-2023 Patient encounter procedure DO Jnenifer Duran Work Phone: [facility] Start: 03-02-2023 End: 03-02-2023 ambulatory Jennifer Duran Other [facility] Other Start: 03-02-2023 Telephone encounter Jennifer Duran [facility] [place] Start: 02-06-2023 End: 02-06-2023 Emergency department patient visit Jennifer Wilber Facility:[facility] Start: 02-05-2023 End: 02-06-2023 Emergency department patient visit DO Jennifer Duran Work Phone: [facility] Work Phone: Start: 01-12-2023 End: 01-12-2023 ambulatory Jennifer Duran Other [facility] Other Start: 01-12-2023 Office outpatient visit 15 minutes Jennifer Duran [facility] [place] Start: 12-09-2022 End: 12-09-2022 ambulatory Jennifer Duran Other [facility] [facility] Other Start: 12-09-2022 Telephone encounter Jennifer Duran [facility] [place] Start: 10-11-2022 End: 10-11-2022 ambulatory Jennifer Duran Other [facility] Other Start: 10-11-2022 Telephone encounter Jennifer Duran [facility] [place] Start: 09-22-2022 End: 09-22-2022 ambulatory Jennifer Duran Other [facility] Other Start: 09-22-2022 Telephone encounter Jennifer Duran [facility] [place] Start: 07-28-2022 End: 07-28-2022 ambulatory BELKIS SANDOVAL Facility: Start: 07-12-2022 End: 07-12-2022 ambulatory Jennifer Duran Other [facility] Other Start: 07-12-2022 Office outpatient visit 15 minutes Jennifer Duran [facility] [place] Start: 07-12-2022 Telephone encounter Jennifer Duran [facility] [place] Start: 06-02-2022 End: 06-02-2022 ambulatory Jennifer Duran Other [facility] Other Start: 06-02-2022 Telephone encounter Jennifer Duran [facility] [place] Start: 05-04-2022 End: 05-04-2022 ambulatory Jennifer Duran Other [facility] Other Start: 05-04-2022 Telephone encounter Jennifer Duran [facility] [place] Start: 04-30-2022 Telephone encounter Gil arechiga APRN.CNP Work Phone: Hematology/Oncology Comment on above: Lab Orders Start: 04-28-2022 Evaluation and management of inpatient DO Jennifer Duran Work Phone: [facility] [address] Start: 04-28-2022 observation encounter DO Jennifer Duran Work Phone: [facility] Work Phone: Start: 04-12-2022 End: 04-12-2022 ambulatory Jennifer Duran Other [facility] Other Start: 04-12-2022 Office outpatient visit 15 minutes Jennifer Duran [facility] [place] Start: 04-12-2022 Telephone encounter Jennifer Duran [facility] [place] Start: 04-09-2022 End: 04-10-2022 ambulatory Stephenie Suh 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 Arts [employer] Medicine Comment on above: Art Therapy Iron deficiency anem ia due to chronic blood loss (Primary Dx); Malabsorption of iron; Cyst of left ovary Start: 03-26-2022 End: 03-27-2022 ambulatory GIL NI Facility:[facility] Start: 03-26-2022 End: 03-26-2022 ambulatory Chair Anton España Work Phone: Hematology/Oncology Comment on above: Iron deficiency anem ia due to chronic blood loss (Primary Dx); Malabsorption of iron; Cyst of left ovary Start: 03-15-2022 Telephone encounter Sharon Saavedra DINKEY ENGINE MECHANIC H ematology/Oncology Comment on above: Social Work Services Start: 03-10-2022 End: 03-11-2022 ambulatory Gil Ni MANAGER POLICY.PROFESSIONAL ADVISOR Work Phone: Hematology/Oncology Comment on above: Iron deficiency anem ia due to chronic blood loss (Primary Dx); Malabsorption of iron Start: 03-10-2022 End: 03-10-2022 Patient encounter procedure Gil Ni MANAGER POLICY.PROFESSIONAL ADVISOR Work Phone: [facility] Start: 02-18-2022 Telephone encounter Gil arechiga MANAGER POLICY.PROFESSIONAL ADVISOR Work Phone: Hematology/Oncology Comment on above: Lab Orders Start: 02-16-2022 End: 02-16-2022 ambulatory Jennifer Duran Other [facility] Other Start: 02-16-2022 Telephone encounter Jennifer Duran [facility] [place] Start: 02-12-2022 End: 02-12-2022 Patient encounter procedure DO Jennifer Duran Work Phone: [facility] [place] Start: 01-07-2022 End: 01-07-2022 ambulatory Jennifer Duran Other [facility] Other Start: 01-07-2022 Telephone encounter Jennifer Duran [facility] [place] Start: 12-04-2021 End: 12-04-2021 Patient encounter procedure Yamilka Lorenzo [facility] Start: 10-29-2021 End: 10-29-2021 ambulatory Jennifer Duran Other [facility] Other Start: 10-29-2021 Telephone encounter Jennifer Duran [facility] [place] Start: 10-16-2021 End: 10-16-2021 ambulatory Jennifer Duran Other [employer] [facility] Other Start: 10-16-2021 Office outpatient visit 15 minutes Jennifer Duran [facility] [place] Start: 09-21-2021 End: 09-21-2021 ambulatory Jennifer Duran Other [employer] [facility] Other Start: 09-21-2021 Telephone encounter Jennifer Duran [facility] [place] Start: 09-14-2021 End: 09-14-2021 Emergency department patient visit DO Jennifer Duran Work Phone: [facility] Start: 08-18-2021 End: 08-18-2021 ambulatory Jennifer Duran Other [facility] [facility] Other Start: 08-18-2021 Telephone encounter Jennifer Duran [facility] [place] Start: 08-11-2021 End: 08-11-2021 ambulatory Jennifer Duran Other [employer] [facility] Other Start: 08-11-2021 Telephone encounter Jennifer Duran [facility] [place] Start: 08-03-2021 End: 08-03-2021 ambulatory Jennifer Duran Other [facility] [facility] Other Start: 08-03-2021 Telephone encounter Jennifer Duran [facility] [place] Start: 07-04-2021 End: 07-04-2021 Patient encounter procedure DO Jennifer Duran Work Phone: [facility] [place] Start: 06-04-2021 End: 06-04-2021 ambulatory Jennifer Duran Other [employer] [facility] Other Start: 06-04-2021 Telephone encounter Jennifer Duran [facility] [place] Start: 05-18-2021 End: 05-18-2021 ambulatory Jennifer Duran Other [employer] [facility] Other Start: 05-18-2021 Telephone encounter Jennifer Duran [facility] [place] Start: 04-21-2021 End: 04-21-2021 ambulatory Jennifer Duran Other [facility] [employer] Other Start: 04-21-2021 Encounter for genera l adult medical examination without abnormal findings Jennifer Duran [facility] [place] Start: 04-21-2021 Periodic preventive med est patient 18-39 yrs Jennifer Duran [facility] Procedures Date Procedure Procedure Detail Performing Clinician Start: 04-30-2023 Pelvic echography DO Pool Duran Work Phone: Start: 04-30-2023 Transvaginal echography DO Jennifer Duran Work Phone: Start: 03-29-2023 Computed tomography of abdomen and pelvis with contrast DO Jennifer Duran Work Phone: Start: 03-29-2023 Transvaginal echography DO Jennifer Duran Work Phone: Start: 03-29-2023 Pelvic echography DO Pool Duran Work Phone: Start: 02-06-2023 Pelvic echography DO Da kelle Duran Work Phone: Start: 02-06-2023 Transvaginal echography DO Jennifer Duran Work Phone: Start: 02-05-2023 Computed tomography of abdomen and pelvis with contrast DO Jennifer Duran Work Phone: Start: 09-14-2021 Computed tomography of abdomen and pelvis with contrast DO Jennifer Duran Work Phone: Start: 09-14-2021 Pelvic echography DO Da kelle Duran Work Phone: Start: 09-14-2021 Transvaginal echography DO Jennifer Duran Work Phone: Plan of Treatment Date Care Activity Detail Author Start: 03-30-2023 Comprehensive metabo lic 2000 panel - Serum or Plasma [facility] Start: 03-30-2023 [facility] Start: 03-29-2023 [facility] Start: 03-29-2023 Referral to central processing technician [facility] Start: 03-29-2023 Hospital admission [facility] Start: 03-29-2023 [facility] Start: 03-29-2023 Computed tomography of abdomen and pelvis with contrast CT abdomen pelvis w con [facility] Start: 03-29-2023 CT Abdomen and Pelvi s W contrast IV [facility] Start: 03-29-2023 Transvaginal echography US transvagi nal [facility] Start: 03-29-2023 US Pelvis transvaginal [facility] Start: 03-29-2023 Pelvic echography US pelvic complete [facility] Start: 03-29-2023 US Pelvis [facility] Start: 02-06-2023 Pelvic echography US pelvic complete [facility] Start: 02-06-2023 US Pelvis [facility] Start: 02-06-2023 Transvaginal echography US transvagi [facility] Start: 02-06-2023 US Pelvis transvaginal [facility] Start: 02-05-2023 Computed tomography of abdomen and pelvis with contrast CT abdomen pelvis w [facility] Start: 02-05-2023 CT Abdomen and Pelvi s W contrast IV [facility] Start: 05-05-2022 End: 07-05-2022 CBC W Auto Differential panel - Blood CBC + DIFF Lab Routine Iron deficiency anemia due to chronic blood loss Malabsorption of iron Expected: 05/05/2022, Expires: 07/05/2022 [facility] Work Phone: Comment on above: Expected: 05/05/2022 , Expires: 07/05/2022 Start: 05-03-2022 End: 07-03-2022 Comprehensive metabolic 2000 panel - Serum or Plasma COMP METABOLIC PANEL Lab Routine Iron deficiency anemia due to chronic blood loss Expected: 05/03/2022, Expires: 07/03/2022 [facility] Work Phone: Comment on above: Expected: 05/03/2022 , Expires: 07/03/2022 Start: 04-28-2022 Pelvic echography US pelvic complete [facility] Start: 04-28-2022 US Pelvis [facility] Start: 04-28-2022 CT Abdomen and Pelvi s WO contrast [facility] Start: 04-28-2022 CT of abdomen and pe lvis without contrast CT abdomen pelvis wo con [facility] Start: 04-28-2022 Transvaginal echography US transvagi nal [facility] Start: 04-28-2022 US Pelvis transvaginal [facility] Start: 02-23-2022 End: 02-20-2023 CBC W Auto Differential panel - Blood CBC + DIFF Lab Routine Iron deficiency anemia due to chronic blood loss Expected: 02/23/2022 (Approximate), Expires: 02/20/2023 [facility] Work Phone: Comment on above: Expected: 02/23/2022 (Approximate), Expires: 02/20/2023 Start: 02-23-2022 End: 02-20-2023 Cobalamin (Vitamin B12) [Mass/volume] in Serum or Plasma VITAMIN B12 BLOOD Lab Routine Iron deficiency anemia due to chronic blood loss Expected: 02/23/2022 (Approximate), Expires: 02/20/2023 [facility] Work Phone: Comment on above: Expected: 02/23/2022 (Approximate), Expires: 02/20/2023 Start: 02-23-2022 End: 02-20-2023 Comprehensive metabolic 2000 panel - Serum or Plasma COMP METABOLIC PANEL Lab Routine Iron deficiency anemia due to chronic blood loss Expected: 02/23/2022 (Approximate), Expires: 02/20/2023 [facility] Work Phone: Comment on above: Expected: 02/23/2022 (Approximate), Expires: 02/20/2023 Start: 02-23-2022 End: 02-20-2023 Ferritin [Mass/volume] in Serum or Plasma FERRITIN BLD Lab Routine Iron deficiency anemia due to chronic blood loss Expected: 02/23/2022 (Approximate), Expires: 02/20/2023 [facility] Work Phone: Comment on above: Expected: 02/23/2022 (Approximate), Expires: 02/20/2023 Start: 02-23-2022 End: 09-10-2023 Folate [Mass/volume] in Serum or Plasma FOLATE SERUM Lab Routine Iron deficiency anemia due to chronic blood loss Expected: 02/23/2022 (Approximate), Expires: 02/20/2023 [facility] Work Phone: Comment on above: Expected: 02/23/2022 (Approximate), Expires: 02/20/2023 Start: 02-23-2022 End: 02-20-2023 Iron and Iron binding capacity panel - Serum or Plasma IRON + TIBC Lab Routine Iron deficiency anemia due to chronic blood loss Expected: 02/23/2022 (Approximate), Expires: 02/20/2023 [facility] Work Phone: Comment on above: Expected: 02/23/2022 (Approximate), Expires: 02/20/2023 Start: 02-11-2022 Influenza vaccination INFLUENZA (#1) [facility] Start: 06-13-2021 DEPRESSION ASSESSMENT DEPRESSION ASS ESSMENT [facility] Start: 11-30-2020 COVID-19 VACCINE (3 - Booster for Moderna series) COVID-19 VACCINE (3 - Booster for Moderna series) [facility] Start: 08-27-2020 COVID-19 VACCINE (3 - Booster for Moderna series) COVID-19 VACCINE (3 - Booster for Moderna series) [facility] Start: 2017 HPV TESTING HPV TESTING [facility] Start: 01-11-2008 PAP TESTING PAP TESTING [facility] Start: 2006 Urine microalbumin profile DTAP,TDAP,TD (1 - Tdap) [facility] Start: 2005 HEPATITIS C SCREENING HEPATITIS C SC JOSE [facility] Start: 2005 HIV SCREENING HIV SCREENING [facility] Start: 1999 Adult depression screening assessment DEPRESSION SCREENING [facility] Start: 1987 HEPATITIS B (1 of 3 - 3-dose series) HEPATITIS B (1 of 3 - 3-dose series) [facility] CT Sinuses WO contrast [facility] Patient Education [facility] Work Phone: Patient referral [facility] Work Phone: [facility] Immunizations Immunization Date Immunization Notes Care Provider Fa cility 03-13-2023 influenza, injectable, quadrivalent, preservative free Jennifer Duran Other [facility] 03-31-2021 influenza, seasonal, injectable Jennifer Duran Other [facility] 07-02-2020 COVID-19 Vaccine Moderna - Documentation Purposes Only Jennifer Durna Other [facility] 06-04-2020 COVID-19 Vaccine Moderna - Documentation Purposes Only Jennifer Duran Other [facility] 12-10-2008 measles, mumps and rubella virus vaccine [facility] NEGATED: Highlighted row has not occurred!03-23-2019 influenza, seasonal, injectable Patient Objection Jennifer Duran Other [facility] Payers Date Payer Category Payer Self-pay [id number] 2018 Unknown [id number] 1987 Unknown [id number] 2.16.84 [id number] 1987 Unknown [id number] 2.16.8 [id number] 1987 Unknown [id number] 2.16.8 [id number] 1987 Unknown [id number] 2.16.8 [id number] 1987 Unknown [id number] 2.16.8 [id number] 1987 Unknown [id number] 2.16.8 [id number] 1987 Unknown [id number] 2.16.8 [id number] 1987 Unknown [id number] 2.16.8 [id number] 1987 Unknown [id number] 2.16.84 [id number] 1959 Unknown [id number] Unknown [id number] Unknown [id number] Unknown [id number] Unknown [id number] 2.16.8 [id number] Unknown [id number] 2.16.8 [id number] Unknown [id number] 2.16.8 [id number] Unknown [id number] 2.16.8 [id number] Unknown [id number] 2.16.8 [id number] Social History Date Type Detail Facility Start: 09-14-2021 End: 04-30-2023 Tobacco smoking status RIIS Never smoked tobacco (finding) [facility] Start: 1985 Sex Assigned At Female [facility] Tobacco smoking status Never [facility] Sex Assigned At Female [facility] Other Start: 04-05-2018 End: 03-10-2022 Tobacco use and exposure Smokeless tobacco non-user [facility] Start: 10-27-2020 End: 03-10-2022 Alcohol intake Current drinker of alcohol (finding) [facility] Start: 04-05-2018 History SDOH Alcohol Comment socially [facility] Start: 1987 Sex Assigned At Not on file [facility] Start: 02-06-2022 End: 04-09-2022 Exposure to SARS-CoV-2 (event) Not sure [facility] History of tobacco use Passive smoker [facility] Goals Date Patient Goal Desired Activity /State Functional Status Date Assessment Result Facility 09-29-2023 Functional Status N/A [facility] 09-26-2023 Functional Status N/A [facility] 07-31-2023 Functional Status N/A [facility] 04-24-2023 Functional Status N/A [facility] 03-29-2023 Functional status Patient at Baseline [facility] Work Phone: 12-04-2021 Functional Status N/A [facility] Mental Status Date Assessment Result Facility 03-29-2023 Cognitive function Cognitive Sta tus Patient at Baseline [facility] Work Phone: Clinical Notes 03-19-2019 to 09-30-2023 Note Date & Type Note Facility 09-30-2023 Evaluation + Plan note Extrac flo from: Title:ED Note Author:Ritesh Heath DO Date :09/30/23 AP (abdominal pain) (R10.9: Unspecified abdominal pain) Ovarian cyst (N83.209: Unspecified ovarian cyst, unspecified side) Orders: HYDROmorphone, 0.5 mg = 0.5 mL, Injection, IV Push, Once, Stop date 09/29/23 23:49:00 EDT, STAT, Start date 09/29/23 23:49:00 EDT, 09/29/23 23:49:00 EDT HYDROmorphone, 0.5 mg = 0.5 mL, Injection, IV Push, Once, Stop date 09/30/23 1:58:00 EDT, STAT, Start date 09/30/23 1:58:00 EDT, 09/30/23 1:58:00 EDT ondansetron, 4 mg = 2 mL, Injection, IV Push, Once, Stop date 09/29/23 23:49:00 EDT, STAT, Start date 09/29/23 23:49:00 EDT, 09/29/23 23:49:00 EDT potassium chloride, 40 mEq = 2 tab(s), Tab-ER, Oral, Once, Stop date 09/30/23 2:00:00 EDT, STAT, Start date 09/30/23 2:00:00 EDT, 09/30/23 2:00:00 EDT Sodium Chloride 0.9% intravenous solution, 1,000 mL, Soln-IV, IV, Once, Stop date 09/29/23 23:50:00 EDT, STAT, Start date 09/29/23 23:50:00 EDT, Infuse over 61, minute(s) Basic Metabolic Panel CBC w/ Auto Diff eGFR Hepatic Function Panel Lipase Level Saline Lock Insert U Beta Hcg Qual UA with Cult Rflx Urinary Catheter Insertion Urine Culture US Doppler Abd/Pelvis Complete US Doppler Abd/Pelvis Complete US Pelvis Non-OB Complete US Transvaginal Non-OB Diagnostic Tests Pending * Urine Culture 09/30/23 [facility]04-19-2024 Hospital Discharge instructions Patient Education 09/30/2023 02:15:06 Ovarian Cyst Ovarian Cyst An ovarian cyst is a [...] causes? Ovarian cysts may be caused by: Ovarian hyperstimulation syndrome. This is a condition that can develop from taking fertility medicines. It causes multiple large ovarian cysts to form. Polycystic ovarian syndrome (PCOS). This is a common hormonal disorder that can cause ovarian cyststo form, and can cause problems with your period or fertility. The normal menstrual cycle. What increases the risk? The following factors may make you more likely to develop this condition: Being overweight or obese. Taking fertility medicines. Taking certain forms of hormonal control. Smoking. What are the signs or symptoms? Many ovarian cysts do not cause symptoms. If symptoms are present, they may include: Pelvic pain or pressure. Pain in the lower abdomen. Pain during sex. Abdominal swelling. Abnormal menstrual periods. Increasing pain with menstrual periods. How is this diagnosed? These cysts are commonly found during a routine pelvic exam. You may have tests to find out more about the cyst, such as: Ultrasound. CT scan. MRI. Blood tests. How is this treated? Many ovarian cysts go away on their own without treatment. Your health care provider may want to check your cyst regularly for 2 3 months to see if it changes. If you are in menopause, it is especially important to have your cyst monitored closely because menopausal women have a higher rate of ovarian cancer. When treatment is needed, it may include: Medicines to help relieve pain. A procedure to drain the cyst (aspiration). Surgery to remove the whole cyst (cystectomy). Hormone treatment or control pills. These methods are sometimes used to help keep cysts from coming back. Surgery to remove the ovary (oophorectomy). Follow these instructions at home: Take ketu-lid-sthekjw and prescription medicines only as told by your health care provider. Ask your health care provider if any medicine prescribed to you requires you to avoid driving or using machinery. Get regular pelvic exams and Pap tests as often as told by your health care provider. Return to your normal activities as told by your health care provider. Ask your health care provider what activities are safe for you. Do not use any products that contain nicotine or tobacco, such as cigarettes, e- cigarettes, and chewing tobacco. If you need help quitting, ask your health care provider. Keep all follow-up visits. This is important. Contact a health care provider if: Your periods are late, irregular, painful, or they stop. You have pelvic pain that does not go away. You have pressure on your bladder or trouble emptying your bladder completely. You have any of the following: ?A feeling of fullness. ?You are gaining weight or losing weight without changing your exercise and eating habits. ?Pain, swelling, or bloating in the abdomen. ?Loss of appetite. ?Pain and pressure in your back and pelvis. You think you may be . Get help right away if: You have abdominal or pelvic pain that is severe or gets worse. You cannot eat or drink without vomiting. You suddenly develop a fever or chills. Your menstrual period is much heavier than usual. Summary An ovarian cyst is a fluid-filled sac that forms on an ovary. Some ovarian cysts may cause symptoms and require treatment. These cysts are commonly found during a routine pelvic exam. Many ovarian cysts go away on their own without treatment. This information is not intended to replace advice given to you by your health care provider. Make sure you discuss any questions you have with your health care provider. Document Revised: 11/06/2020 Document Reviewed: 11/06/2020 [employer] Patient Education 2022 [employer]. Follow Up Care 09/29/2023 23:40:10 With:Ion Royal Address: [address] [place] [address]- Business (1) When:10/03/2023 [facility]04-15-2024 Hospital Discharge instructions Follow Up Care 09/26/2023 13:55:08 With:[employer] [facility] Address: [address] [place] [address]- Business (1) When:09/29/2023 17:49:12 With:Tarun C[place]AND Address: [address] , [place] [address]- Business (1) When:09/29/2023 17:49:03 With:XXXX NONE Address: [place] When:Within 3 Day(s) [facility]04-15-2024 Evaluation + Plan noteExtracted from: Title:ED Note Author:Sujey Gutiérrez NP Date:09/26/23 Abdominal pain (R10.9: Unspe cified abdominal pain) Constipation (K59.00: Constipation, unspecified) Ovarian cyst (N83.209: Unspecified ovarian cyst, unspecified side) Orders: acetaminophen-oxycodone, 1 tab(s), Tab, Oral, Once, Stop date 09/26/23 17:16:00 EDT, STAT, Start date 09/26/23 17:16:00 EDT dicyclomine, 20 mg = 2 mL, Injection, IntraMuscular, Once, Stop date 09/26/23 17:16:00 EDT, STAT, Start date 09/26/23 17:16:00 EDT, 09/26/23 17:16:00 EDT diflunisal, 500 mg = 1 tab(s), Oral, q12hr, # 20 tab(s), Refills(s) 0, [id number], 165, cm, 09/26/23 14:18:00 EDT, Height/Length Dosing, 81.2, kg, 09/26/23 14:18:00 EDT, Weight Dosing hyoscyamine, 0.125 mg = 1 tab(s), Oral, QID, X 5 day(s), # 20 tab(s), Refills(s) 0, Pharmacy: [facility]/pharmacy #[id number], 165, cm, 09/26/23 14:18:00 EDT, Height/Length Dosing, 81.2, kg, 09/26/23 14:18:00 EDT, Weight Dosing ketorolac, 30 mg = 1 mL, Injection, IV, Once, Stop date 09/26/23 15:40:00 EDT, STAT, Start date 09/26/23 15:40:00 EDT, 09/26/23 15:40:00 EDT polyethylene glycol 3350, 17 gm, Oral, Daily, X 7 day(s), # 119 gm, Refills(s) 0, [id number], 165, cm, 09/26/23 14:18:00 EDT, Height/Length Dosing, 81.2, kg, 09/26/23 14:18:00 EDT, Weight Dosing Beta hCG Qual CBC w/ Auto Diff Comprehensive Metabolic Panel CT Abdomen/Pelvis w/ Contrast Drug Screen Urine eGFR Extra Blue Tube Extra SST Tube Lipase Level UA with Cult Rflx US Pelvis Non-OB Complete US Transvaginal Non-OB [facility]02-18-2024 Hospital Discharge instructions Patient Education 07/31/2023 17:55:00 Abdominal Pain, [...] Follow these instructions at home: Medicines Take cfky-kvw-iroyfqg and prescription medicines only as told by [...] Watch your condition for any changes. Take cflh-yzo-pmhkube and prescription medicines only as told by [...] provider. Document Revised: 07/18/2020 Document Reviewed: 10/08/2019 [employer] Patient Education 2022 [employer]. Follow Up Care 07/31/2023 15:34:13 With:Follow-up with your CYLINDER WORKER at [facility] Address:Unknown When:08/03/2023 17:52:19 Comments:Call the office of [...] weakness, or any new or worsening symptoms. [facility]02-15-2024 Evaluation note* Author Jennifer Duran [facility] Authored July 28, 2023 1:18pm The above note written by __ _Polly Collado____ acting as human recorder, note dictated by Dr. Mcfadden .I performed the above HPI, ROS, and Examination. I formulated and dictated the treatment plan and was present for entire encounter. Jennifer Duran D.O. [facility] Work Phone: 1(571) 774-484902-06-2024 Evaluation note* Encounter Date Diagnosis Assessment Notes Treatment Notes Treatment Clinical Notes Jul, Anxiety (ICD-10 - F41.9) Spyder Lynk Other 02-06-2024 Evaluation note* Encounter Date Diagnosis [...] an appointment with her specialist through the [facility] and is scheduled at the end of this month (July) and is hoping to have a total hysterectomy. Spyder Lynk Other 12-26-2023 Evaluation note* Encounter Date Diagnosis Assessment Notes Treatment Notes Treatment Clinical Notes May, Cough (ICD-10 - R05.9) Spyder Lynk Other 12-04-2023 Evaluation note* Encounter Date Diagnosis Assessment Notes Treatment Notes Treatment Clinical Notes May, Anxiety (ICD-10 - F41.9) Spyder Lynk Other 11-12-2023 Hospital Discharge instructions Patient Education [...] Follow these instructions at home: Medicines Take lvhn-sbr-uvubhpm and prescription medicines only as told by [...] Watch your condition for any changes. Take cgor-uaf-mmkczyk and prescription medicines only as told by [...] provider. Document Revised: 07/18/2020 Document Reviewed: 10/08/2019 [employer] Patient Education 2022 Wikibon. Follow Up Care 04/24/2023 13:13:55 With:YOUR OBGYN at [facility] Address:Unknown When:04/27/2023 15:50:22 Comments:Seek immediate medical [...] develop any new or worsening symptoms. 3. [facility]11-12-2023 Evaluation + Plan noteExtracted from: Title:ED Note Author:Jignesh Dumont DO Date:06/24/22 Abdominal pain, acute, left lower quadrant (R10.32: Left lower quadrant pain) Ordered: oxycodone, 5 mg = 1 cap(s), Oral, q6hr, PRN Pain 8-10, X 3 day(s), # 12 cap(s), Refills(s) 0, Pharmacy: [facility]/pharmacy #[id number], 165.1, cm, 04/24/23 13:32:00 EST, Height/Length [...] Saline Lock Insert UA With Cult Reflex [facility]11-06-2023 Evaluation note* Encounter Date Diagnosis Assessment [...] an appointment with her specialist at the [facility] in June (2024) which was the soonest they could get her in. She is hoping that they will at least remove the ovary but she is willing to have a total hysterectomy if they will do it. 1:13 PM - 1:20 PM [facility] Other 10-20-2023 Evaluation note* Encounter Date Diagnosis Assessment Notes Treatment Notes Treatment Clinical Notes Mar, Anxiety (ICD-10 - F41.9) [facility] Other 10-17-2023 Progress note Author Christi Aquino [facility] March 29, 2023 4:11pm Note Date/Time March 29, 2023 1 1:35am [facility] [address] [place] [address] Progress Note Signed with Addenda Patient: Livia Noyola MR#: [id number] : 1985 Acct:[id number] Age/Sex: 38 / F Adm Date: 3 Loc: Room: [address] [place] [address] Type: ADM IN Attending Dr: Christi Aquino MD Copies to: ~ ADDENDUM1 Upon re-evaluation in the afternoon, patient feels better and would like to go home. Prescribed pain medications as needed as directed. Advised to continue to follow up with [facility] staff occupational therapy instructor. 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 Discussed with patient and her mother at bedside. All questions answered. She is in agreement and comfortable with discharge plan with these prescriptions. Addendum Documented By: Christi Aquino MD 03/29/231610 Addendum Signed By: <Electronically signed by Christi [...] Still with abdominal pain mostly left sided. occupational therapy instructor eval requested for further evaluation. 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 Afebrile here, no leukocytosis or obvious evidence of infectious process. Placed on Pain meds regimen IV and PO. Ongoing monitoringfor now. Documented By: Christi Aquino MD 03/29/23 11 32 Signed By: <Electronically signed by Christi Aquino MD> 03/29/23 1499 [facility] Work Phone: 1(136) 417-822910-17-2023 History and physical note Author Megan Muniz [facility] March 29, 2023 7:29am Note Date/Time March 29, 2023 7 :29am [facility] [address] [place] [address] Hospitalist H&P Signed Patient: Livia Noyola MR#: [id number] : 1985 Acct:[id number] Age/Sex: 38 / F Adm Date: 3 Loc: Room: [address] [place] [address] Type: ADM IN Attending Dr: Christi Aquino MD Copies to: Jennifer Duran,MD Megan Ricardo MD~ HPI DATE OF EXAMINATION: 03/29/23 CHIEF [...] findings. The patient case was discussed with CYLINDER WORKER, who was not convinced that left ovarian [...] Previous records in the computer system reviewed [facility] Medical History Anemia Endometriosis Surgical History History of cholecystectomy History of removal of ovarian cyst Family History (Updated 03/29/23 @ 06:45 by Simin Lugo, FER) Father Heart disease Grandparent Breast CA Social [...] % (Auto) 42.8 % (.) 03/29/23 01:40 Shelby % (Auto) 7.3 % (.) 03/29/23 01:40 Eos % (Auto) 1.8 % (.) 03/29/23 01:40 Baso % (Auto) 1.3 % (.) 03/29/23 01:40 Nucleat RBC Rel Count 0.1 /100 WBC (0-0.5) 03/29/23 01:40 Neut # (Auto) 3.5 x10E3/uL (1.8-7.7) 03/29/23 01:40 Lymph # (Auto) 3.2 x10E3/uL (1.00-4.8) 03/29/23 01:40 Shelby # (Auto) 0.6 x10E3/uL (0.0-0.8) 03/29/23 01:40 [...] pH 7.5 (5.0-9.0) 03/29/23 02:53 Ur Specific [place] 1.003 (1.001-1.030) 03/29/23 02:53 Urine Protein Negative [...] she does have tachycardia We will consult CYLINDER WORKER Check lactic acid 2. Microcytic iron deficiency [...] days): 3 Documented By: Megan Muniz MD 03/29/23 0722 Signed By: <Electronically signed by Megan Muniz MD> 03/29/23 0729 [facility] Work Phone: 1(365) 349-525008-02-2023 Evaluation note* Encounter Date Diagnosis Assessment Notes [...] relief. She would need to see an digital specialist for this. She is agreeable to [...] an appointment to see Dr. Castillo again. Spyder Lynk Other 06-29-2023 Evaluation note* Encounter Date Diagnosis Assessment Notes Treatment Notes Treatment Clinical Notes Nov, Acute sinusitis (ICD-10 - J01.90) Nov, Cough (ICD-10 - R05.9) Spyder Lynk Other 05-01-2023 Evaluation note* Encounter Date Diagnosis [...] noted. Rx was called into [facility], spoke with Chad TOWNSEND, the Xanax 0.25 MG tablets are out of stock currently so her dose was increased to 0.5 MG and she was instructed to take 1/2 tablet q8-12 hours as needed. Only 12 tablets were called in. Pt voiced understanding when notified of this change. October, Other 3:17 PM - 3:23 PM Spyder Lynk Other 04-12-2023 Evaluation note* Encounter Date Diagnosis [...] Sep, Other 12:46 PM - 12:51 PM Spyder Lynk Other 01-30-2023 Evaluation note* Encounter Date Diagnosis Assessment Notes Treatment Notes Treatment Clinical Notes Jun, Anxiety (ICD-10 - F41.9) Spyder Lynk Other 01-30-2023 Evaluation note* Encounter Date Diagnosis [...] Side effects/risks/benefi ts of medication were reviewed. Spyder Lynk Other 12-21-2022 Evaluation note* Encounter Date Diagnosis [...] May, Other 3:27 PM - 3:32 PM Spyder Lynk Other 11-18-2022 Miscellaneous Notes* Telephone Encounter - Tabby Steele Ma - 04/30/2022 2:25 PM EST CMP if needed. Tabby Steele Ma [facility] Evaluation note* Encounter Date Diagnosis Assessment Notes Treatment Notes Treatment Clinical Notes Mar, Anxiety (ICD-10 - F41.9) Spyder Lynk Other 10-31-2022 Evaluation note* Encounter Date Diagnosis [...] done and then return to see her CYLINDER WORKER at the [facility] because she feel she has another ovarian cyst. Spyder Lynk Other 10-28-2022 Miscellaneous Notes* Allied Health - Stephenie Suh, 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 - 04/09/2022 2:21 PM EDT ART [...] Will follow up then. SIGNATURE: Donald Villegas Therapist PATIENT NAME: Livia Noyola DATE: April 09, 2022 TIME: 2:21 PM PAGER/CONTACT #: documented in this encounterWay[facility] Hospital10-[facility]-2022 Miscellaneous Notes* Telephone Encounter - MARY Narvaez - 03/15/2022 12:04 PM EDT Patient appears on the First Time Treatment List for a non-oncology treatment. No psychosocial assessment is indicated. JANNA Narvaez documented in this encounterWayne Hospital09-28-2022 NoteHNO ID: [id number] Author: Gil Ni APRN.PROFESSIONAL ADVISOR Service: ? 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 She works 7 [...] with subsequent iron deficiency. Recent laboratories from [facility] October 04, 2020 show hemoglobin of 11.6 [...] and removal ovarian cyst (more content not included)...[facility]09-28-2022 History of Present illness Narrative* Gil Ni APRN.PROFESSIONAL ADVISOR - 03/10/2022 2:00 PM EDT Images from the original note were not included. 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 She works 7 [...] with subsequent iron deficiency. Recent laboratories from [facility] October 04, 2020 show hemoglobin of11.6 but [...] Hyperlipidemia Father Heart Father bypass surgery, stents, CT Gil Ni APRN.PIOTR [facility] [place], [place] CC: Dr. Jennifer Duran [address] [place] [phone] I spent a total of 30 minutes on the date of the service which included preparing to see the patient, wsqg-dr-olch patient care, completing clinical documentation, obtaining and/or reviewing separately obtained history, performing a medically appropriate examination, counseling and educating the pat ient/family/caregiver, ordering medications, tests, or procedures, independently interpreting results (not separately reported), and communicating results to the patient/family/caregiver. documented in this encounterWayne Hospital09-08-2022 Miscellaneous Notes* Telephone Encounter - Meaghan Ordonez - 02/18/2022 3:14 PM EDT Patient has an appt on 02/23. Would you like labs? documented in this encounterWayne Hospital09-06-2022 Evaluation note* Encounter Date Diagnosis Assessment Notes Treatment Notes Treatment Clinical Notes Feb, Iron deficiency anemia (ICD-10 - D50.9) Feb, Elevated liver enzymes (ICD-10 - R74.8) [facility] Other 07-28-2022 Evaluation note* Encounter Date Diagnosis Assessment Notes Treatment Notes Treatment Clinical Notes Dec, Anxiety (ICD-10 - F41.9) [facility] Other 06-24-2022 Hospital Discharge instructions Patient Education [...] develop this condition: Playing sports that include evgv-zc-ojdi contact with others. Having a skin condition [...] Follow these instructions at home: Medicines Take qrat-pci-twbrcly and prescription medicines only as told by [...] 06/20/2015 Document Revised: 07/10/2019 Document Reviewed: 06/21/2017 [employer] Patient Education 2020 Wikibon. 12/04/2021 13:59:11 Sinusitis, Adult Sinusitis, Adult Sinusitis [...] at home: Medicines Take, use, or apply pqyp-juw-ngqavwm and prescription medicines only as told by [...] and water are not available, use hand returned telephone equipment appraiser. Do not smoke. Avoid being around people [...] 05/30/2006 Document Revised: 10/30/2018 Document Reviewed: 10/30/2018 [employer] Patient Education 2020 Wikibon. 12/04/2021 13:59:10 BMI for Adults BMI for [...] height. This can be done either in [place] ([place] or metric measurements. Note that charts are available to help you find your BMI quickly and easily without having to do these calculations yourself. To calculate your BMI in [place] ([place] measurements, your health care provider will: [...] medical problems. BMI can be measured using Ug[place]an measurements or metric measurements. To interpret your [...] 02/08/2005 Document Revised: 05/12/2018 Document Reviewed: 04/12/2018 [employer] Patient Education 2020 Wikibon. [facility] 05-06-2022 Evaluation note* Encounter [...] October, Other 8:28 AM - 8:35 AM Spyder Lynk Other 03-01-2022 Evaluation note* Encounter Date Diagnosis Assessment Notes Treatment Notes Treatment Clinical Notes Aug, Cough (ICD-10 - R05) Spyder Lynk Other 02-21-2022 Evaluation note* Encounter Date Diagnosis [...] Jul, Other 5:43 PM - 5:48 PM Spyder Lynk Other 12-06-2021 Evaluation note* Encounter Date Diagnosis [...] voices that her employer will handle her [facility] paperwork. If she needs a note she [...] May, Other 4:25 PM - 4:38 PM Spyder Lynk Other 11-09-2021 Evaluation note* Encounter Date Diagnosis [...] R63.5) Her TSH is normal at 1.04. Spyder Lynk Other 10-07-2019 History general Narrative - Reported* Type Description Date Medical History endometriosis 2012 Medical History Echocardiogram [employer] [facility] [facility] Normal, ejection fraction 60-65% Medical History MRI Brain 03-21-19 [employer] [facility] [employer], Normal Medical History anxiety Medical History pneumonia 06/2019 Surgical History Cholecystectomy Surgical History gal bladder removed 2008 Surgical History ablation - endometri osis removed off ovaries Dr Lentz 2012 Surgical History ovarian torsion 2014 Surgical History MRI pelvis 2017 Surgical History ovarian cyst removed 06/2018 Hospitalization History see above Spyder Lynk Other Consult note Author Geraldo Hatfield [facility] April 28, 2022 8:22am Note Date/Time April 28, 2022 8:22am [facility] [address] [place] [address] CYLINDER WORKER Consult Note Signed Patient: Livia Noyola MR#: [id number] : 1985 Acct:[id number] Age/Sex: 37 / F Adm Date: 2 Loc: Room: [address] [place] [address] Type: ADM INOo Attending Dr: Kiko Saenz [...] Last Admin: 04/28/22 04:43 Dose: 10 ml SLEEVE TAILOR - Exam Physical Exam Vital signs: Temp 97.7 F 04/28/22 04:18 Pulse 95 H 04/28/22 04:18 Resp 16 04/28/22 04:18 BP 136/95 04/28/22 04:18 Pulse Ox 100 04/28/22 04:18 O2 Del Method Room Air 04/28/22 04:18 Constitutional Constitutional: no acute distress Routine Respiratory Exam Respiratory: Absent respiratory distress Routine Abdominal Exam Abdominal: Present soft, normoactive bowel sounds and tenderness; Absent reboundor guarding SLEEVE TAILOR - Results Laboratory Results - Last 48 hrs. 04/28/22 02:00: Urine Color Yellow, Urine Appearance Cloudy A, Urine pH 6.5, Ur Specific [place] 1.005, Urine Protein Negative, Urine Glucose (UA) [...] Creatinine Clear 132.36, Sodium 137, Potassium 3.7, Zbrtjbzx779, Carbon Dioxide 21.1 L, Anion Gap 14.6, [...] % (Auto) 64.6, Lymph % (Auto) 28.9, Shelby % (Auto) 4.5, Eos % (Auto) 1.0, Baso % (Auto) 1.0, Neut # (Auto) 5.1, Lymph # (Auto) 2.3, Shelby # (Auto) 0.4, Eos # (Auto) 0.1, Baso # (Auto) 0.1, Nucleated RBC % (auto) 0.0, Platelet Estimate Normal, Plt Morphology Comment Normal, RBC Morphology N/A, Polychromasia Slight, Hypochromasia Slight, Poikilocytosis Moderate, Anisocytosis Marked, Tear Drop Cells Slight, Ovalocytes Moderate SLEEVE TAILOR - A/P (1) Intractable abdominal pain: Code(s): [...] And I suggested she follow-up with her central processing technician at the [facility]. Code(s): N83.202 - Unspecified ovarian cyst, left side Status: Acute Documented By: GERALDO HATFIELD MD 04/28/22816 Signed By: <Electronically signed by MD GERALDO HATFIELD> 04/28/22821 [facility] Work Phone: Evaluation + Plan note No data available for this section [facility] Evaluation noteNo assessment information available [facility] Work Phone: Evaluation noteNo InformationNort Press About Us Other Evaluation note* Diagnosis Iron deficiency anemia due to chronic blood loss- Primary Iron deficiency anemia secondary to blood loss (chronic) [facility] Diagnosis 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 [facility] Diagnosis 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 Cyst of left ovary Other and unspecified ovarian cyst [facility] Diagnosis 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 Cyst of left ovary Other and unspecified ovarian cyst [facility] Diagnosis Iron deficiency anemia due to chronic blood loss- Primary Iron deficiency anemia secondary to blood loss (chronic) [facility]* Diagnosis Onset Date Resolution Status Abdominal pain acute Ovarian cyst acute [facility] Work Phone: Evaluation note* Diagnosis Onset Date Resolution Status Abdominal pain acute Endometriosis acute Ovarian cyst acute [facility] Work Phone: Evaluation note* Author Jennifer Duran [facility] Authored July 28, 2023 12:18pm The above note written by __ _Polly Collado____ acting as human recorder, note dictated by Dr. Mcfadden .I performed the above HPI, ROS, and Examination. I formulated and dictated the treatment plan and was present for entire encounter. Jnenifer Duran D.O. [facility] Work Phone: Hospital Discharge instructions Additional Instructions Please arrange a follow-up appointment with your [facility] central processing technician.[facility] Work Phone: Hospital Discharge instructions Additional Instructions Take Motrin and Tylenol as needed for mild to moderate pain. Take oxycodone as prescribed for severe pain. Follow-up with Dr. Ness or Dr. Grayson in the office regarding further treatment with a GnRH antagonistMer[facility] Work Phone: Progress note No data available for this section [facility] Care Summary Purpose Family History Relationship Condition Age at Onset Recorded Date/T [...] Unknown Not Specified Hypertension Unknown Advance Directives Advance Directive Response Recorded Date/ Time Advance [...] for Visit Acute cough Acute sinusitis Fever Chief Complaint telephone/sick telephone/med refill Reason for Visit Acute cough Acute sinusitis Fever Anxiety Cough Sinusitis Reason for Referral Reason appt pt is brent rosenbaum to see whomever can see her first pt needs consult to discuss possible injection for right sided bursitis Diagnosis 1 Greater trochanteric bursitis of right hip (M70.61) Referral Organization [facility] [place] Referring Provider First Name Jennifer Referring Provider Last Name Wilber Referring Provider Specialty Family Prac kasi Referred Organization [facility] Referred Provider Chad Luna II Referred Address [address] [place], [place],[address] Referred Provider Specialty Orthopedic S urgery Referral Priority Routine General Notes Angelita Trevino 01/12/2023 03:51:47 PM > referral sent p2p. pt understands that she will be contacted to schedule this appt. Reason appt consult for e zia and treatment of continued cough since covid infection Diagnosis 1 Cough (R05) Referral Organization [facility] [place] Referring Provider First Name Jennifer Referring Provider Last Name Wilber Referring Provider Specialty Family Prac kasi Referred Organization Unknown Facility Referred Provider Steve Donald Referred Provider Specialty Pulmonary Di martinezes Referral Priority Routine General Notes Angelita Trevino [...] section and content) DATE CREATED AUTHOR 08/08/2020 [facility] DATE CREATED AUTHOR AUTHOR'S ORGANIZ ATION 05/03/2022 [facility] DATE CREATED AUTHOR AUTHOR'S ORGANIZ ATION 10/19/2022 [facility] DATE CREATED AUTHOR AUTHOR'S ORGANIZ ATION [facility]/20[facility] DATE CREATED AUTHOR AUTHOR'S ORGANIZ ATION 06/23/2023 [facility] DATE CREATED AUTHOR AUTHOR'S ORGANIZ ATION 06/24/2023 [facility] DATE CREATED AUTHOR AUTHOR'S ORGANIZ ATION 09/06/2023 [facility] [place] DATE CREATED AUTHOR AUTHOR'S ORGANIZ ATION 10/02/[address] [facility] DATE CREATED AUTHOR AUTHOR'S ORGANIZ ATION 10/21/2023 [facility] EPIC Care Teams (unrecognized sec tion and content) Team Status: Inactive Member Role Status Dates Jennifer Duran , DO Primary Care Provider, Attending Pro bud Active Team Status: Active Member Role Status Dates Jennifer Duran , DO Primary Care Provider Active Team Status: Inactive Member Role Status Dates Jennifer Duran , DO Primary Care Provider Active Augustus Santiago DO Attending Provider Active Team Status: Inactive Member Role Status Dates Jennifer Duran , DO Primary Care Provider Active Amaury M Yen , DO Emergency Provider Active Interactive Media Marketing Strategist Relationship Specialty Start Date End Date Jennifer Duran, DO [address] [place] [address] PCP - General 11/27/07 Jennifer Duran, DO [address] [place] [address] Referring Family Practice 04/03/19 Avinash Velásquez MD [address] [place] [address] Referring CYLINDER WORKER 11/30/21 Interactive Media Marketing Strategist Relationship Specialty Start Date End Date Jennifer Duran, DO [address] [place] [address] PCP - General 11/27/07 Jennifer Duran, DO [address] [place] [address] Referring Family Medicine 04/03/19 Avinash Velásquez MD [address] [place] [address] Referring CYLINDER WORKER 11/30/21 Interactive Media Marketing Strategist Relationship Specialty Start Date End Date Jennifer Duran, DO [address] [place] [address] PCP - General 11/27/07 Jennifer Duran, DO [address] [place] [address] Referring Family Medicine 04/03/19 Avinash Velásquez MD [address] [place] [address] Referring CYLINDER WORKER 11/30/21 Interactive Media Marketing Strategist Relationship Specialty Start Date End Date Jennifer Duran, DO [address] [place] [address] PCP - General 11/27/07 Jennifer Duran, DO [address] [place] [address] Referring Family Medicine 04/03/19 Avinash Velásquez MD [address] [place] [address] Referring CYLINDER WORKER 11/30/21 Interactive Media Marketing Strategist Relationship Specialty Start Date End Date Jennifer Duran, DO [address] [place] [address] PCP - General 11/27/07 Jennifer Duran, DO [address] [place] [address] Referring Family Medicine 04/03/19 Avinash Velásquez MD [address] [place] [address] Referring CYLINDER WORKER 11/30/21 Interactive Media Marketing Strategist Relationship Specialty Start Date End Date Jennifer Duran, DO [address] [place] [address] PCP - General 11/27/07 Jennifer Duran, DO [address] [place] [address] Referring Family Medicine 04/03/19 Avinash Velásquez MD [address] [place] [address] Referring CYLINDER WORKER 11/30/21 Team Status: Active Member Role Status Dates Jennifer Duran DO Primary Care Provider Active Yevgeniy Cabrera Jr, MD Emergency Provider Active Kiko Saenz DO Admit Provider, Attending Provider Active Interactive Media Marketing Strategist Relationship Specialty Start Date End Date Jennifer Duran, DO [address] [place] [id number] PCP - General 11/27/07 Jennifer Duran, DO [address] [place] [address] Referring Family Medicine 04/03/19 Avinash Velásquez MD [address] [place] [id number] Referring CYLINDER WORKER 11/30/21 Team Status: Inactive Member Role Status [...] Care Provider Active Jaime Aleman , DO [facility] Attending Provider Active Team Status: Active Member [...] Active Team Status: Inactive Member Role Status Austin Duran , DO Primary Care Provider Active Ming Childress , DO Emergency Provider Active Team Status: Active Member Role Status Dates PHYSICIAN NO FAMILY Primary Care Provider Active Team Status: Inactive Member Role Status Dates PHYSICIAN NO FAMILY Primary Care Provider Active Elier Jackson , DO Emergency Provider Active Team Status: Inactive Member Role Status Dates PHYSICIAN NO FAMILY Primary Care Provider Active Start: April 30, 2023 End: April 30, 2023 Elier Jackson , DO Emergency Provider Active St art: April 30, 2023 End: April 30, 2023 Team Status: Inactive Member Role Status Dates Jennifer Duran Primary Care Provide r, Attending Provider Active Start: July 28, 2023 End: July 28, 2023 Team Status: Inactive Member Role Status Dates Jennifer Duran Primary Care Provide r, Attending Provider Active Start: October 18, 2023 End: October 18, 2023 Goals (unrecognized section and content) Goals [...] section No data available for this section No data available for this section No data available for this sectionGoals may be documented in an alternate section REASON FOR VISIT (unrecogniz ed section and content) Reason Comments Lab Orders Reason Comments Anemia 16 month follow up Reason Comments Social Work Services Specialty Diagnoses / Procedures Referred By Gina t Referred To Contact Diagnoses Cyst of left ovary Iron deficiency anemia due to chronic blood loss Malabsorption of iron Procedures IRON SUCROSE INJECTION PER 1 MG Gil Ni, MANAGER POLICY.[facility] [address] [place] [address] Johny Treat Patria [address] [place] [address] Referral ID Status Reason Start Date Expiration Date V isits Requested Visits Authorized [id number] Authorized 03/10/2022 06/12/2022 99 99 Reason Comments Art Therapy Source Comments (unrecognize d section and content) In the event this informatio n is protected by the Federal Confidentiality of Alcohol and Drug Abuse Patient Records regulations: The Federal rules restrict any use of the information to criminally investigate or prosecute any alcohol or drug abuse patient.[facility] the event this information is protected by the Federal Confidentiality of Alcohol and Drug Abuse Patient Records regulations: The Federal rules restrict any use of the information to criminally investigate or prosecute any alcohol or drug abuse patient.[facility] the event this information is protected by the Federal Confidentiality of Alcohol and Drug Abuse Patient Records regulations: The Federal rules restrict any use of the information to criminally investigate or prosecute any alcohol or drug abuse patient.[facility] the event this information is protected by the Federal Confidentiality of Alcohol and Drug Abuse Patient Records regulations: The Federal rules restrict any use of the information to criminally investigate or prosecute any alcohol or drug abuse patient.[facility] the event this information is protected by the Federal Confidentiality of Alcohol and Drug Abuse Patient Records regulations: The Federal rules restrict any use of the information to criminally investigate or prosecute any alcohol or drug abuse patient.[facility] the event this information is protected by the Federal Confidentiality of Alcohol and Drug Abuse Patient Records regulations: The Federal rules restrict any use of the information to criminally investigate or prosecute any alcohol or drug abuse patient.[facility] the event this information is protected by the Federal Confidentiality of Alcohol and Drug Abuse Patient Records regulations: The Federal rules restrict any use of the information to criminally investigate or prosecute any alcohol or drug abuse patient.[facility] FOR RECORDS PERTAINING TO PATIENTS WHO [...] BE BASED ON THE PRIMARY CLINICAL RECORDS. [facility] [employer] [facility]. provides no warranty or guarantee of the accuracy or completeness of information in this document.
[2023-10-22 14:59] VITALS: BP 159/92; PULSE 129; O2SAT 100; BMI 30.8
--- NOTE | 2023-10-22 15:21 | ED_ITS ---
HPI - Dental/Oral General Chief complaint: Dental/Oral Stated complaint: TOOTHACHE Time Seen by Provider: 10/22/23 15:04 Source: patient Mode of arrival: walk-in Limitations: no limitations History of Present Illness HPI Narrative: Patient is a 38-year-old female who presents to the emergency department for continued pain in tooth #31. She recently completed a course of antibiotics for this. She is scheduled to have a root canal this . She has had no difficulty swallowing, fevers or vomiting. She has no concern for . No drainage from the tooth, no facial swelling. Related Data Home Medications ?Medication ?Instructions ?Recorded ?Confirmed alprazolam 0.25 mg tablet 0.25 mg PO Q8H PRN anxiety 09/20/23 10/22/23 citalopram 20 mg tablet (Celexa) 20 mg PO DAILY 09/20/23 10/22/23 Previous Rx's ?Medication ?Instructions ?Recorded ketorolac 10 mg tablet 10 mg PO TID PRN pain #10 tabs 10/22/23 tramadol 50 mg tablet 50 mg PO Q4H PRN pain 3 days #15 10/22/23 tabs Allergies Allergy/AdvReac Type Severity Reaction Status Date / Time morphine Allergy Severe Verified 10/22/23 15:02 prochlorperazine AdvReac Mild Verified 10/22/23 15:02 [From Compazine] Review of Systems ROS Constitutional Denies: fever or chills Ears, nose, mouth, and throat Reports: mouth pain; Denies: throat pain Respiratory Denies: shortness of breath Gastrointestinal Denies: nausea or vomiting Integumentary/Breast Denies: rash Neurological Reports: headache Hematologic/Lymphatic Denies: easy bruising PFSH PFS Medical History (Updated 10/22/23 @ 15:19 by ARLEEN Burt) Ovarian cyst ?N83.209 - Unspecified ovarian cyst, unspecified side (ICD-10) Endometriosis ?N80.9 - Endometriosis, unspecified (ICD-10) LLQ abdominal pain ?R10.32 - Left lower quadrant pain (ICD-10) Complex cyst of left ovary ?N83.292 - Other ovarian cyst, left side (ICD-10) Toothache ?K08.89 - Other specified disorders of teeth and supporting structures (ICD- 10) Surgical History (Updated 09/20/23 @ 06:52 by Marichuy Daily, RN) History of removal of cyst ?Z98.890 - Other specified postprocedural states (ICD-10) History of cholecystectomy ?Z90.49 - Acquired absence of other specified parts of digestive tract (ICD- 10) Family History (Updated 09/20/23 @ 05:46 by Marichuy Daily, RN) Family/Other No problems noted. Father Family history of CHF (congestive heart failure) Family history of COPD (chronic obstructive pulmonary disease) Family history of diabetes mellitus Family history of hypertension Family history of myocardial infarction Mother Family history of hypertension Other Family history of cancer Social History Within the past year, how often did you have a drink containing alcohol: monthly or less Within the past year, how many standard drinks containing alcohol did you have on a typical day: 1 or 2 Within the past year, how often did you have six or more drinks on one occasion: never Total score: 0 Score interpretation: A score less than 3 is consistent with normal alcohol consumption. Smoking status: Never smoker Non-prescribed substance use: denies use Highest level of school completed/degree received: Associate degree: academic program Are you now , , , , never or living with a partner: In a typical week, how many times do you talk on the telephone with family, friends, or neighbors: 3 or more times per week How often do you get together with friends or relatives: 3 or more times per week Little interest or pleasure in doing things: not at all Feeling down, depressed, or hopeless: not at all Feel stressed/tense/nervous/anxious/difficulty sleeping: not at all Do you think of yourself as: straight/heterosexual Gender Identity: female Exam Narrative Exam Narrative: Gen.: Awake, alert, in no distress Head: Normocephalic, atraumatic ENT: Moist mucous membranes, No facial swelling. No redness or swelling under the tongue. Tenderness with root exposure on the posterior aspect of tooth #31. No abscess or swelling of the gumline. No drainage from the tooth Respiratory: No respiratory distress Extremities: Moves extremities equally Psych: Normal mood and affect Neuro: No focal neuro deficit Skin: Warm, dry, intact Constitutional Vital Signs, click to edit/add: Last Vital Signs Pulse 129 H 10/22/23 14:59 Resp 18 10/22/23 14:59 BP 159/92 H 10/22/23 14:59 Pulse Ox 100 10/22/23 14:59 O2 Del Method Room Air 10/22/23 14:59 Course Vital Signs Vital signs: Vital Signs Pulse Rate 129 H 10/22/23 14:59 Respiratory Rate 18 10/22/23 14:59 Blood Pressure 159/92 H 10/22/23 14:59 Pulse Oximetry 100 10/22/23 14:59 Oxygen Delivery Method Room Air 10/22/23 14:59 Pulse Rate 129 H 10/22/23 14:59 Respiratory Rate 18 10/22/23 14:59 Blood Pressure 159/92 H 10/22/23 14:59 Pulse Oximetry 100 10/22/23 14:59 Oxygen Delivery Method Room Air 10/22/23 14:59 MDM - Dental/Oral MDM Narrative Medical decision making narrative: Patient treated with topical analgesia, prescription for Toradol and short course of tramadol. OARRS reviewed showing that the patient does receive multiple prescriptions from different facilities, although she has not had an active prescription of narcotics for over a month. Follow-up with dentist as scheduled. I do not see an active dental infection or facial swelling to warrant an additional prescription of antibiotics at this time. Medical Records Attestation: I reviewed the patient's medical records. Discharge Plan Discharge Stand Alone Forms: Portal Instructions Chief Complaint: Dental/Oral Clinical Impression: Toothache Patient Disposition: Home, Self-Care Time of Disposition Decision: 15:19 Condition: Good Prescriptions / Home Meds: New tramadol 50 mg tablet 50 mg PO Q4H PRN (Reason: pain) 3 Days Qty: 15 0RF ketorolac 10 mg tablet 10 mg PO TID PRN (Reason: pain) Qty: 10 0RF No Action alprazolam 0.25 mg tablet 0.25 mg PO Q8H PRN (Reason: anxiety) citalopram [Celexa] 20 mg tablet 20 mg PO DAILY Print Language: Georgian Instructions: Toothache (ED) Referrals: Physician,Non-Staff, MD [Primary Care Provider] - 1 week
[2023-10-22] MEDS: BENZOCAINE 30 ML, lidocaine HCL 15 ML MM (15:40)
[2023-10-22 15:44] VITALS: TEMP 36.7
== END 2023-10-22 15:46 | disposition home or self-care (01) ==
PROVIDERS: Emergency Provider Student in an Organized Health Care Education/Training Program
DX: K08.89 Other specified disorders of teeth and supporting structures (principal); Z90.49 Acquired absence of other specified parts of digestive tract
CPT/HCPCS: 99284

== ENCOUNTER 2024-02-11 12:45 | Emergency (ER) | payer BC, SELFPAY ==
--- OUTSIDE RECORDS SUMMARY | 2024-02-11 12:50 | XMS_ITS | CCD ---
Author Organization [facility] Care Team Providers Care Infrastructure Technician Name Role Phone DO Jennifer Duran Primary Care Provider [phone] DO Augustus Santiago Attending Provider DO Amaury Barlow Emergency Provider [phone] Jennifer Duran Primary Care Physician Jennifer Duran Unavailable DO Jennifer Duran Primary Care Provider DO Jennifer Duran Attending Provider [phone] Jennifer Duran DO Primary Care Provider Jeninfer Duran DO Unavailable [phone] Didier BARNETT, Penola P Unavailable [phone] Jennifer Duran DO Primary Care Provider [phone] Jennifer Duran DO Unavailable [phone] DO Jennifer Duran Primary Care Provider DO Jennifer Duran Attending Provider MD Yevgeniy Cabrera Jr Emergency Provider DO Kiko Saenz Admit Provider DO Kiko Saenz Attending Provider [phone] Jennifer Duran DO Primary Care Provider Jennifer Duran DO Unavailable [phone] Didier BARNETT, Penola P Unavailable [phone] JENNIFER DURAN Primary Care Unavailable GIL NI Referring Unavailable GIL NI Referring Unavailable JENNIFER DURAN Primary Care Unavailable GIL NI Attending Unavailable JENNIFER DURAN Referring Unavailable JENNIFER DURAN Primary Care Unavailable SABA REYNOLDS Referring Unavailable JENNIFER DURAN Primary Care Unavailable BELKIS SANDOVAL Admitting Unavailable DR JENNIFER DURAN Primary Care Unavailable MARTITA, DR JASMIN Hunter Consulting Unavailmary e BELKIS SANDOVAL Attending Unavailable KIMMIE, DR AUBREY Varghese Consulting Unavailable BELKIS SANDOVAL Consulting Unavailable DO Jennifer Duran Primary Care Provider [phone] DO Elier Jackson Emergency Provider DO Ming Childress Emergency Provider MD Megan Garcia Admit Provider MD Megan Muniz Attending Provider DO Kiko Saenz Other Provider MD Christi Aquino Attending Provider DO Jaime Aleman Attending Provider [phone] [facility], [facility] Primary Care Physician Unavailab DO Jennifer Rm Primary Care Provider [facility], DO Elier Leos Emergency Provider DO Jaime Aleman Attending Provider DO Ming Childress Emergency Provider UnaMD Megan Gongora Admit Provider MD Christi Aquino [facility] Other Provider NO FAMILY, PHYSICIAN Primary Care Provider Unava ilable MD MCKINLEY, EVGENY Attending Unavailable JENNIFER DURAN Primary Care Unavailable DO Elier jordan Emergency Provider [phone] NONE, XXXX Primary Care Physician Unavailab DESTINI Sheehan Attending Unavailable Jignesh Dumont Attending Unavailable Ritesh Heath Attending Unavailable Jignesh Dumont Attending Unavailable Konstantin Penny Attending Unavailable Ritesh Heath Attending Unavailable TARUN BRADEN Attending Unavailable Jennifer Duran DO Primary Care Provider Unavail able DO Jennifer Duran Primary Care Provider CATY Corbett Emergency Provider [phone] SELWYN MARTINEZ Attending Unavailable NO PCP, NO PCP Primary Care Unavailable SELWYN MARTINEZ Attending Unavailable NO PCP, NO PCP Primary Care Unavailable DO Jennifer Duran Attending Provider [phone] Jennifer Duran Primary Care Unavailable Megan Muniz Admitting Unavailable Kiko Saenz Unavailable Christi Aqunio Attending Unavailable Imani Corbett M Admitting Unavailable Wilber, Jennifer Primary Care Unavailable Imani Corbett M Attending Unavailable Elier Jackson M Attending Unavailable Didierpa, Elier M Admitting Unavailable NO FAMILY, PHYSICIAN Primary Care Unavailable Wilber, Jennifer Primary Care Unavailable Ming Childress Attending Unavailable Ming Childress Admitting Unavailable Jennifer Duran Primary Care Unavailable Jennifer Duran Attending Unavailable Jennifer Duran Admitting Unavailable Wilber, Jennifer Primary Care Unavailable Love - CHC, Jaime P Attending Unavailable Love - CHC, Jaime P Admitting Unavailable Elier Jackson Attending Unavailable Jennifer Duran Primary Care Unavailable Manuel, Elier M Admitting Unavailable Unavailable Primary Care Provider UnavailJENNIFER Lopez Primary Care Unavailable EREN CAMEJO Attending Unavailable JENNIFER DURAN Primary Care Unavailable EREN CAMEJO Attending Unavailable JACY SALDANA Attending Unavailable NO PCP, NO PCP Primary Care Unavailable KEVIN BAGLEY Attending Unavailable TARIK MAYER Attending Unavailable TARIK MAYER Referring Unavailable NO PCP, NO PCP Primary Care Unavailable TARIK MAYER Attending Unavailable TARIK MAYER Referring Unavailable NO PCP, NO PCP Primary Care Unavailable TARIK MAYER Attending Unavailable TARIK MAYER Referring Unavailable NO PCP, NO PCP Primary Care Unavailable NO PCP, NO PCP Primary Care Unavailable GUSTAVO DAVIES Attending Unavaila GUSTAVO Dickey Attending Unavaila GUSTAVO Dickey Referring Unavaila ble NO PCP, NO PCP Primary Care Unavailable Allergies Allergy Classification Reported Allergen(s) Allergy Type Date of Onset Reaction(s) Facility (20 sources) Morphine; Translations: [MORPHINE] Drug Allergy 9 Other: See Comments, Itching (finding), Itching [facility] (19 sources) Atenolol Drug Allergy 3 Dr. Cantu/ [facility] (6 sources) seasoninig Propensity to adverse reactions Unknown [employer] Other (1 source) Morphine Drug Allergy 3 [facility] Repository (17 sources) Seasonal allergy Propensity to adverse reactions 3 Unknown, Watery Eye [facility] (12 sources) Prochlorperazin e; Translations: [prochlorperazi ne] Drug Allergy 3 Feeling nervous (finding), Anxiety [facility] (1 source) No Known Medication Allergies; Translations: [No Known Medication Allergies] Propensity to adverse reactions (disorder) [facility] Repository (1 source) Morphine Drug Allergy 3 [facility] Repository Medications Current Medications Medication Drug Class(es) Dates Sig (Normalized) Sig (Original) acetaminophen 325 mg / oxyCODONE hydrochloride 5 mg oral tablet (20 sources) Opioid Agonist Start: 07-31-2023 End: 08-03-2023 Percocet 5 mg-325 mg oral tablet 1 tab(s), Oral, q6hr Pain 8-10 for 3 day(s), 12 tab(s), Refill(s) 0, [facility]/pharmacy #[id number], 165.1, cm, 07/31/23 15:42:00 EST, Height/Length Dosing, 82.9, kg, 07/31/23 15:42:00 EST, Weight Dosing Start Date: 07/31/23 Stop Date: 08/03/23 Status: Ordered Start: 03-29-2023 End: 04-30-2023 take 1 tablet by mouth every eight hours Oxycodone-Acetaminophen (Endocet) 5-325 mg tablet Discontinued 1 TAB PO Q8H 30 12March 29, 2023 April 30, 2023 6:33pm Start: 02-06-2023 End: 03-29-2023 take 1 tablet by mouth every four to six hours Oxycodone-Acetaminophen (Percocet) 5-325 mg tablet Discontinued 1 TAB PO EVERY 4-6 HOURS 03 18February 06, 2023 March 29, 2023 1:48am ALPRAZolam 0.25 mg oral tablet (20 sources) Benzodiazepine Start: 09-14-2023 End: 01-02-2024 Alprazolam Active 0.25 MG PO .COMPLEX 24 January 02, 2024 2:24pm 0.25 mg orally Q8-12 hrs as needed for anxiety Start: 01-12-2023 Xanax 0.25 MG 1 tablet Orally q8-12 hrs prn anxiety for 8 days Jan, Active Start: 12-04-2021 End: 09-14-2023 take 0.25 mg by mouth three times daily Alprazolam Discontinued 0.25 MG PO Three times daily March 29, 2023 12:00am September 14, 2023 2:59pm Start: 12-04-2021 End: 03-29-2023 take 1 tablet by mouth once daily Alprazolam (Xanax) 0.25 mg tablet Discontinued 0.25 MG PO Daily April 28, 2022 1:00am March 29, 2023 1:48am Start: 03-12-2019 Xanax 0.5 MG 1 /2 [...] day(s), # 250 mL, Refills(s) 0, Pharmacy: [facility]/pharmacy #[id number], 166, cm, 12/04/21 12:54:00 EDT, Height/Length [...] tablet Orally qd with food May, Not-Taking atenolol 25 mg oral tablet (15 sources) beta-Adrenergic Graciela Start: 01-19-2024 End: 01-19-2024 take 1 tablet by mouth once daily atenolol (TENORMIN) 25 MG tablet Take 1 tablet by mouth daily 01/19/2024 Active Start: 10-20-2020 End: 03-10-2022 atenolol (TENORMIN) 25 mg ta blet Budesonide / formoterol (13 sources) Corticosteroid, beta2-Adrenergic Agonist Symbicort prn Active Symbicort Active cefdinir 300 mg oral capsule (1 source) Cephalosporin Antibacterial Start: 09-22-2022 take 2 capsules by mouth once daily at mealtime Cefdinir 300 MG 2 capsules Orally qd with food for 10 days Sep, Active clindamycin 300 mg oral capsule (1 source) Lincosamide Antibacterial Start: 11-08-2023 End: 11-18-2023 take 1 capsule by mouth four times daily clindamycin (CLEOCIN) 300 MG capsule Take 1 capsule by mouth 4 times daily for 10 days 40 capsule 0 11/08/2023 11/18/2023 Active diflunisal 500 mg oral tablet (2 sources) Nonsteroidal Anti-inflammatory Drug Start: 09-26-2023 take 1 tablet by mouth every twelve hours diflunisal 500 mg Tab 500 mg = 1 tab(s), Oral, q12hr, # 20 tab(s), Refills(s) 0, Pharmacy: [facility]/pharmacy #[id number], 165, cm, 09/26/23 14:18:00 EDT, Height/Length Dosing, 81.2, kg, 09/26/23 14:18:00 EDT, Weight Dosing Start Date: 09/26/23 Status: Ordered doxycycline hyclate 100 mg oral capsule (16 sources) Tetracycline-class Drug Start: 04-11-2023 take 1 [...] day(s), # 20 tab(s), Refills(s) 0, Pharmacy: [facility]/pharmacy #[id number], 165, cm, 09/26/23 14:18:00 EDT, Height/Length Dosing, 81.2, kg, 09/26/23 14:18:00 EDT, Weight Dosing Start Date: 09/26/23 Stop Date: 10/01/23 Status: Ordered ketorolac tromethamine 10 mg oral tablet (1 source) Nonsteroidal Anti-inflammatory Drug, Cyclooxygenase Inhibitor take 1 tablet by mouth every six hours as needed ketorolac (TORADOL) 10 MG tablet Take 1 tablet by mouth every 6 hours as needed Active mupirocin 0.02 mg/mg topical ointment (1 source) RNA Synthetase Inhibitor Antibacterial Start: 12-04-2021 End: 12-14-2021 mupirocin Top 2% Oint 1 luis, Topical, TID for 10 day(s), 22 gm, Refill(s) 0, [facility]/pharmacy #[id number], 166, cm, 12/04/21 12:54:00 EDT, Height/Length Dosing, 84, kg, 12/04/21 12:54:00 EDT, Weight Dosing Start Date: 12/04/21 Stop Date: 12/14/21 Status: Ordered ondansetron 4 mg disintegrating oral tablet (19 sources) Serotonin-3 Receptor Antagonist Start: 01-22-2024 ondansetron (ZOFRAN-ODT) [address] 1 tablet under the tongue every 8 hours as needed for Nausea or Vomiting 10 tablet 01/22/2024 Active Start: 09-06-2023 take 1 tablet by suman th three times daily as needed for nausea ondansetron (ZOFRAN) 4 MG tablet Take 1 tablet by mouth 3 times daily as needed for Nausea or Vomiting 9 tablet 09/06/2023 Active Start: 03-29-2023 take 4 mg by mouth e very eight hours Ondansetron Hcl Active 4 MG PO Q8H 15 March 29, 2023 12:00am Start: 09-14-2021 End: 04-28-2022 take 4 mg by mouth three times daily Ondansetron Discontinued 4 MG PO Three times daily 9 September 14, 2021 12:00am April 28, 2022 1:50am oxyCODONE hydrochloride 5 mg oral capsule (10 sources) Opioid Agonist Start: 04-24-2023 End: 04-27-2023 oxyCODONE 5 mg Cap 5 mg = 1 cap(s), Oral, q6hr, PRN Pain 8-10, X 3 day(s), # 12 cap(s), Refills(s) 0, Pharmacy: [facility]/pharmacy #[id number], 165.1, cm, 04/24/23 13:32:00 EST, Height/Length [...] 12 March 29, 2023 polyethylene glycol 3350 34467 mg powder for oral solution (2 sources) Osmotic Laxative Start: 09-26-2023 End: 10-03-2023 take 17 g by mouth once daily Miralax 3350 17 gram packet 17 gm, Oral, Daily, X 7 day(s), # 119 gm, Refills(s) 0, Pharmacy: [facility]/pharmacy #[id number], 165, cm, 09/26/23 14:18:00 EDT, Height/Length Dosing, 81.2, kg, 09/26/23 14:18:00 EDT, Weight Dosing Start Date: 09/26/23 Stop Date: 10/03/23 Status: Ordered Symbicort 80/4.5 inhalation aerosol with adapter (5 sources) Start: 12-04-2021 Symbicort 80/4 .5 inhalation aerosol with adapter Refill(s) 0 Start Date: 12/04/21 Status: Ordered traMADol hydrochloride 50 mg oral tablet (2 sources) Opioid Agonist Start: 01-22-2024 End: 01-25-2024 take 1 tablet by mouth every six hours as needed for pain traMADol (ULTRAM) 50 MG tablet Indications: Cyst of left ovary Take 1 tablet by mouth every 6 hours as needed for Pain for up to 3 days. Intended supply: 3 days. Take lowest dose possible to manage pain Max Daily Amount: 200 mg 12 tablet 01/22/2024 01/25/2024 Active Start: 01-22-2024 End: 01-22-2024 take 1 dose by mouth once 50 mg, Oral, ONCE, 1 dose, O n 01/22/24 at 1230 Vitamin C 500 MG (10 sources) Start: 03-25-2020 take 1 tablet by suman th once daily Vitamin C 500 MG 1 tablet Orally Once a day Mar, Active Womens One Daily - (10 sources) Start: 03-25-2020 Womens One Elle ly - as directed Orally Mar, Active Completed/Discontinued Medications Medication Drug Class(es) Dates Sig (Normalized) Sig (Original) acetaminophen 325 mg / HYDROcodone bitartrate 5 mg oral tablet (19 sources) Opioid Agonist Start: 11-08-2023 End: 01-19-2024 take 1 tablet by mouth every four to six hours Hydrocodone-Acetami nophen Discontinued 1 TAB PO EVERY 4-6 HOURS 05 15November 08, 2023 January 19, 2024 11:18am Start: 09-14-2021 End: 04-28-2022 take 1 tablet by mouth three times daily Hydrocodone-Acetaminophen Discontinued 1 TAB PO Three times daily 9 September 14, 2021 April 28, 2022 1:50am [id number] 200 actuat albuterol 0.09 mg/actuat metered dose inhaler (15 sources) beta2-Adrenergic Agonist Start: 06-20-2019 End: 04-28-2022 [...] with food for 10 day(s) Jul, Not-Taking azithromycin 250 mg oral tablet (15 sources) Macrolide Antimicrobial Start: 04-17-2021 End: 04-28-2022 [...] mg/ml / guaiFENesin 20 mg/ml oral solution (15 sources) Opioid Agonist Start: 06-20-2019 End: 04-28-2022 take 1 mL by mouth every four to six hours Codeine-Guaifenesin Discontinued 10 ML PO EVERY 4-6 HOURS June 20, 2019 1:00am April 28, 2022 1:50am dextromethorphan hydrobromide 30 mg / pyrilamine maleate 30 mg oral tablet (7 sources) Uncompetitive G-zmwtbk-N-asparta te Receptor Antagonist, Sigma-1 Agonist Start: 08-11-2021 take 1 tablet by mouth every six hours as needed Todd DMT 30-30 MG 1 tablet Orally q6 [...] (Hycodan) 5-1.5 mg/5 mL (5 mL) syrup (10 sources) Start: 09-07-2023 End: 09-07-2023 Hydrocodone-Homatropine (Hycodan) [...] 10:42am HYDROmorphone hydrochloride 2 mg oral tablet (12 sources) Opioid Agonist Start: 04-28-2022 End: 03-29-2023 take 1 tablet by mouth every four hours Hydromorphone (Dilaudid) 2 mg tablet Discontinued 2 MG PO Q4H 30 April 28, 2022 March 29, 2023 1:48am ibuprofen 600 mg oral tablet (14 sources) Nonsteroidal Anti-inflammatory Drug Start: 04-28-2022 End: 03-29-2023 take 600 mg by mouth every six hours Ibuprofen Discontinued 600 MG PO Q6H 30 April 28, 2022 1:00am March 29, 2023 [...] once daily. naproxen 500 mg oral tablet (11 sources) Nonsteroidal Anti-inflammatory Drug Start: 3 End: 3 take 500 mg by mouth twice daily Naproxen Discontinued 500 MG PO Twice daily March 29, 2023 12:00am April 30, 2023 6:33pm potassium chloride 20 meq extended release oral tablet (14 sources) Start: 2 End: 2 take 20 [...] 2022 1:50am prochlorperazine 5 mg oral tablet (10 sources) Phenothiazine Start: 03-29-2023 End: 04-30-2023 take 5 mg by mouth every eight hours Prochlorperazine Maleate Discontinued 5 MG PO Q8H 20 March 29, 2023 12:00am April 30, 2023 6:33pm Problems Active Problems Problem Classification Problem Date Documented Da te Episodic/Chronic Anxiety disorders (20 sources) Anxiety; Translations: [Anxiety disorder, unspecified] Onset: 04-21-2021 Resolved: 01-07-2022 Chronic Deficiency and other anemia (12 sources) Iron [...] [Hyperlipidemia, unspecified] Onset: 04-21-2021 Resolved: 04-21-2021 Chronic Disorders of teeth and jaw (7 sources) Toothache; Translations: [Other specified disorders of teeth and supporting structures] Onset: 11-08-2023 11-08-2023 Episodic Endometriosis (18 sources) Endometriosis (clinical); Translations: [Endometriosis, unspecified] Onset: 03-29-2023 03-29-2023 Chronic Fever of unknown origin (9 sources) Fever, unspecified; Translations: [Fever] Episodic Fluid and electrolyte disorders (16 sources) Hypokalemia; Translations: [Hypokalemia] Onset: 01-27-2024 06-20-2019 Episodic Inflammatory diseases of female pelvic organs (7 sources) Hydrosalpinx; Translations: [Chronic salpingitis] Onset: 05-30-2018 07-06-2018 Chronic Neoplasms of unspecified nature or uncertain behavior [...] Onset: 06-22-2023 Episodic Other lower respiratory disease (15 sources) Dyspnea; Translations: [Dyspnea, unspecified] 06-20-2019 Episodic Other lower respiratory disease (17 sources) Cough; Translations: [Acute cough] 07-28-2023 Episodic [...] 06-22-2023 12-04-2021 Episodic Other upper respiratory infections (10 sources) Sinusitis; Translations: [Chronic sinusitis, unspecified] Onset: 11-25-2023 10-18-2023 Chronic Other upper respiratory infections (14 sources) Acute sinusitis, unspecified; Translations: [Acute sinusitis] Onset: 10-16-2021 Resolved: 10-16-2021 Episodic Ovarian cyst (20 sources) Cyst of ovary; Translations: [Unspecified ovarian cyst, unspecified side] Onset: 05-30-2018 09-14-2021 Episodic Skin and subcutaneous tissue infections (1 source) Impetigo; Translations: [Impetigo, unspecified] Onset: 12-04-2021 Episodic Unclassified (1 source) Cough, unspecified; Translations: [Cough, unspecified] Onset: 11-25-2023 Past or Other Problems Problem Classification Problem Date Documented Da te Episodic/Chronic Abdominal pain (20 sources) Pain in pelvis; Translations: [Pelvic and perineal pain] Onset: 05-30-2018 07-06-2018 Episodic Cardiac dysrhythmias (20 sources) Tachycardia; Translations: [Tachycardia, unspecified] Onset: 04-21-2021 Resolved: 04-21-2021 06-20-2019 Episodic Nausea and vomiting (2 sources) Nausea with vomiting, unspecified; Translations: [Nausea] Onset: 05-18-2021 Resolved: 05-18-2021 Episodic Other liver diseases (1 source) Abnormal levels of other serum enzymes Onset: 02-16-2022 Resolved: 02-16-2022 Episodic Other lower respiratory disease (1 source) Cough Onset: 08-11-2021 Resolved: 08-11-2021 Episodic Other nutritional; endocrine; and metabolic disorders (1 source) Abnormal weight gain Onset: 04-21-2021 Resolved: 04-21-2021 Episodic Residual codes; unclassified (1 source) Family history of disorders of kidney and ureter; Translations: [Family history of disorders of kidney and ureter] Onset: 05-30-2023 Episodic Unclassified (8 sources) Cough R05.9 Onset: 05-18-2021 Resolved: 10-16-2021 Viral infection (1 source) COVID-19 Onset: 05-18-2021 Resolved: 05-18-2021 Results Test Name Value Interpretation Reference Range Facility C REACTIVE PROTEINon 024 CRP [Mass/Vol] mg/L Normal 0.000-0.744 [facility] Comment on above: Performed By: #### C HEATH, CMP #### [facility] ([id number]) [address] [place] [address] 29430 CBC AND AUTO DIFFon 01-27-20 24 ABSOLUTE BASOPHIL 0.1 X10E9/L Normal 0.0-0.2 [facility] Comment on above: Performed By: #### C HEATH, CMP, 3040-3, 19531-2, 1987-10, #### [facility] ([id number]) [address] [place] [address] 13580 ABSOLUTE NEUTROPHIL 4.6 X10E9/L Normal 1.5-6.6 [facility] Comment on above: Performed By: #### C BCA, CMP, 3040-3, 86333-3, 1987-10, #### [facility] ([id number]) [address] [place] [address] 73474 Basophils/100 WBC (Bld) 1.0 % Normal [facility] Comment on above: Performed By: #### C BCA, CMP, 3040-3, 29680-8, 1987-10, #### [facility] ([id number]) [address] [place] [address] 97693 Eosinophils (Bld) [#/Vol] 0.1 10*3/uL Normal 0.0-0.4 [facility] Comment on above: Performed By: #### C BCA, CMP, 3040-3, 52151-2, 1987-10, #### [facility] ([id number]) [address] [place] [address] 85939 Eosinophils/100 WBC (Bld) 1.8 % Normal [facility] Comment on above: Performed By: #### C HEATH, CMP, 0-3, , 1987-10, #### [facility] ([id number]) [address] [place] [address] 58721 Erythrocyte distribution width (RBC) [Ratio] 17.1 % High 11.5-15.0 [facility] Comment on above: Performed By: #### Leila JOE CMP, 3039-, , 1987-10, #### [facility] ([id number]) [address] [place] [address] 91883 Hematocrit (Bld) [Volume fraction] 34.8 % Low 35-47 [facility] Comment on above: Performed By: #### C HEATH, [facility], 3039-3, , 1987-10, #### [facility] ([id number]) [address] [place] [address] 63146 Hemoglobin (Bld) [Mass/Vol] 10.9 g/dL Low 11.7-15.5 [facility] Comment on above: Performed By: #### Leila JOE, CMP, 3039-3, , 1987-10, #### [facility] ([id number]) [address] [place] [address] 57748 Lymphocytes (Bld) [#/Vol] 1.9 10*3/uL Normal 1.0-3.5 [facility] Comment on above: Performed By: #### Leila JOE, CMP, 0-3, , 1987-10, #### [facility] ([id number]) [address] [place] [address] Lymphocytes/100 WBC (Bld) 26.4 % Normal [facility] Comment on above: Performed By: #### C HEATH CMP, 3039-, , 1987-10, #### [facility] ([id number]) [address] [place] [address] 57384 MCH (RBC) [Entitic mass] 22.7 pg Low 27-34 [facility] Comment on above: Performed By: #### C HEATH, CMP, 3039-, , 1987-10, #### [facility] ([id number]) [address] [place] [address] 95126 MCHC (RBC) [Mass/Vol] 31.3 g/dL Low 32-36 [facility] Comment on above: Performed By: #### Leila JOE, CMP, 3039-08, , 1987-10, #### [facility] ([id number]) [address] [place] [address] 30711 MCV (RBC) [Entitic vol] 72 fL Low 80-100 [facility] Comment on above: Performed By: #### C HEATH, CMP, 3039-08, , 1987-10, #### [facility] ([id number]) [address] [place] [address] 22502 Monocytes (Bld) [#/Vol] 0.4 10*3/uL Normal 0-0.9 [facility] Comment on above: Performed By: #### C HEATH, CMP, 3039-, , 1987-10, #### [facility] ([id number]) [address] [place] [address] 09017 Monocytes/100 WBC (Bld) 5.8 % Normal [facility] Comment on above: Performed By: #### C HEATH, CMP, 3040-3, 52806-7, 1987-10, #### [facility] ([id number]) [address] [place] [address] 60706 Neutrophils/100 WBC (Bld) 65.0 % Normal [facility] Comment on above: Performed By: #### C BCA, CMP, 3040-3, 42720-7, 1987-10, #### [facility] ([id number]) [address] [place] [address] 49399 Platelet mean volume (Bld) [Entitic vol] 7.6 fL Normal 7-12 [facility] Comment on above: Performed By: #### C BCA, CMP, 3040-3, 96005-2, 1987-10, #### [facility] ([id number]) [address] [place] [address] 72073 Platelets (Bld) [#/Vol] 532 10*3/uL High 150-450 [facility] Comment on above: Performed By: #### C BCA, CMP, 0-3, , 1987-10, #### [facility] ([id number]) [address] [place] [address] 39631 RBC COUNT 4.80 X10E12/L Normal 3.80-5.20 [facility] Comment on above: Performed By: #### C BCA, CMP, 3040-3, 12293-8, 1987-10, #### [facility] ([id number]) [address] [place] [address] 72287 WBC (Bld) [#/Vol] 7.0 10*3/uL Normal 4.0-11.0 [facility] Comment on above: Performed By: #### Leila BCA, CMP, 3040-3, 90288-3, 1987-10, #### [facility] ([id number]) [address] [place] [address] 03003 CHLAMYDIA/GC BY PCRon 2023 CHLAMYDIA/GC BY PCR SPECIMEN SOURCE VAGINAL CHLAMYDIA DNA(PCR) Negative (qualifier value) Chlamydia trachomatis not detected by nucleic acid amplification. This does not exclude the possibility of infection because results are dependent on adequate specimen collection. GONORRHOEAE DNA(PCR) Negative (qualifier value) Neisseria gonorrhoeae not detected by nucleic acid amplification. This does not exclude the possibility of infection because results are dependent on adequate specimen collection. Normal [facility] Comment on above: Performed By: #### C STEVE JOE #### [facility] ([id number]) [address] [place] [address] 15460 COMPREHENSIVE METABOLIC PANE Van 01-27-2024 Albumin [Mass/Vol] 4.3 g/dL Normal 3.2-5.3 [facility] Comment on above: Performed By: #### C STEVE JOE, 3040-3, 36046-3, 1987-10, #### [facility] ([id number]) [address] [place] [address] 86279 ALP [Catalytic activity/Vol] 76 U/L Normal 39-130 [facility] Comment on above: Performed By: #### Leila JOE CMP, 0-3, 21040-3, 1987-10, #### [facility] ([id number]) [address] [place] [address] 59252 ALT [Catalytic activity/Vol] 28 U/L Normal 0-31 [facility] Comment on above: Performed By: #### C HEATH CMP, 3040-3, 03753-7, 1987-10, #### [facility] ([id number]) [address] [place] [address] 89956 Anion gap [Moles/Vol] 7 mmol/L Normal 5-15 [facility] Comment on above: Performed By: #### C HEATH CMP, 3040-3, 53754-6, 1987-10, #### [facility] ([id number]) [address] [place] [address] 17319 AST [Catalytic activity/Vol] 20 U/L Normal 0-41 [facility] Comment on above: Performed By: #### C BCA, CMP, 3040-3, 72751-1, 1987-10, #### [facility] ([id number]) [address] [place] [address] 54071 Bilirubin [Mass/Vol] 1.0 mg/dL Normal 0.3-1.2 [facility] Comment on above: Performed By: #### C BCA, CMP, 3040-3, 63185-3, 1987-10, #### [facility] ([id number]) [address] [place] [address] 06437 Calcium [Mass/Vol] 9.0 mg/dL Normal 8.5-10.5 [facility] Comment on above: Performed By: #### C BCA, CMP, 3040-3, 04249-7, 1987-10, #### [facility] ([id number]) [address] [place] [address] 31951 Chloride [Moles/Vol] 102 mmol/L Normal 98-109 [facility] Comment on above: Performed By: #### C BCA, CMP, 3040-3, 30964-8, 1987-10, #### [facility] ([id number]) [address] [place] [address] 92844 CO2 [Moles/Vol] 22 mmol/L Normal 22-32 [facility] Comment on above: Performed By: #### C BCA, CMP, 3040-3, 51342-0, 1987-10, #### [facility] ([id number]) [address] [place] [address] [place] [address] Creatinine [Mass/Vol] 0.76 mg/dL Normal 0.40-1.00 [facility] Comment on above: Result Comment: METH OD TRACEABLE TO IDMS STANDARD Performed By: #### C STEVE JOE, 3040-3, 54262-9, 1987-10, #### [facility] ([id number]) [address] [place] [address] 69102 eGFR (CKD-EPI) NON-RACE DEPENDENT >90 Normal >59 [facility] Comment on above: Result Comment: Reported eGFR is based on the CKD-EPI 2020 equation that does not use a race coefficient. Performed By: #### C STEVE JOE, 3040-3, 00346-8, 1987-10, #### [facility] ([id number]) [address] [place] [address] 35401 Glucose [Mass/Vol] 109 mg/dL High 65-99 [facility] Comment on above: Performed By: #### C STEVE JOE, 0-3, , 1987-10, #### [facility] ([id number]) [address] [place] [address] 10553 Potassium [Moles/Vol] 4.1 mmol/L Normal 3.5-5.0 [facility] Comment on above: Performed By: #### C STEVE JOE, 3040-3, 75449-6, 1987-10, #### [facility] ([id number]) [address] [place] [address] 18643 Protein [Mass/Vol] 8.2 g/dL High 6.0-8.0 [facility] Comment on above: Performed By: #### C HEATH CMP, 3040-3, 00033-3, 1987-10, #### [facility] ([id number]) [address] [place] [address] 28813 Sodium [Moles/Vol] 131 mmol/L Low 134-146 [facility] Comment on above: Performed By: #### C HEATH, [facility], 3040-3, 52444-5, 1987-10, #### [facility] ([id number]) [address] [place] [address] 04940 Urea nitrogen [Mass/Vol] 6 mg/dL Normal 5-23 [facility] Comment on above: Performed By: #### C HEATH, [facility], 3040-3, 13851-5, 1987-10, #### [facility] ([id number]) [address] [place] [address] 40524 HCG ( test) Ql (U)o n 01-27-2024 Beta HCG ( test) Ql (U) Negative Normal NEG [facility] Comment on above: Performed By: #### 2 106-3 #### [facility] ([id number]) [address] [place] [address] 26376 LIPASEon 01-27-2024 Lipase [Catalytic activity/Vol] 33 U/L Normal 17-40 [facility] Comment on above: Performed By: #### C HEATH, CMP #### [facility] ([id number]) [address] [place] [address] 24376 Lactate (P arely) [Moles/Vol]o n 01-27-2024 LACTATE W/REFLEX 1.5 mmol/L Normal 0.4-2.0 [facility] Comment on above: Result Comment: Result did not trigger repeat Lactate, re-order if needed. Performed By: #### C BCA, CMP #### [facility] ([id number]) [address] [place] [address] 40242 MAGNESIUMon 01-27-2024 Magnesium [Mass/Vol] 2.0 mg/dL Normal 1.8-2.6 [facility] Comment on above: Performed By: #### C HEATH, CMP #### [facility] ([id number]) [address] [place] [address] 02773 URINE CULTUREon 01-27-2024 Bacteria identified Cx Nom (U) CULTURE RESULTS <10,000 ORGANISMS/ML NORMAL URO GENITAL RASHID Normal [facility] Comment on above: Performed By: #### C BCA, CMP #### [facility] ([id number]) [address] [place] [address] 59720 URN MACROSCOPIC NURon 2023 BILIRUBIN AUDREY Negative Normal NEG [facility] Comment on above: Performed By: #### N UM #### [facility] ([id number]) [address] [place] [address] [place] [address] BLOOD/HGB AUDREY Negative Normal NEG [facility] Comment on above: Performed By: #### N UM #### [facility] ([id number]) [address] [place] [address] [place] [address] GLUCOSE AUDREY Negative Normal NEG [facility] Comment on above: Performed By: #### N UM #### [facility] ([id number]) [address] [place] [address] [place] [address] KETONES AUDREY Negative Normal NEG [facility] Comment on above: Performed By: #### N UM #### [facility] ([id number]) [address] [place] [address] [place] [address] LEUKOCYTE ESTERASE AUDREY Negative Normal NEG [facility] Comment on above: Performed By: #### N UM #### [facility] ([id number]) [address] [place] [address] [place] [address] NITRITE AUDREY Negative Normal NEG [facility] Comment on above: Performed By: #### N UM #### [facility] ([id number]) [address] [place] [address] 09058 PH AUDREY 8.5 Normal 5.0-8.5 [facility] Comment on above: Performed By: #### N UM #### [facility] ([id number]) [address] [place] [address] PROTEIN AUDREY Negative Normal NEG [facility] Comment on above: Performed By: #### N UM #### [facility] ([id number]) [address] [place] [address] SPECIFIC GRAVITY AUDREY 1.015 Normal 1.003-1.035 [facility] Comment on above: Performed By: #### N UM #### [facility] ([id number]) [address] [place] [address] 84902 UROBILINOGEN AUDREY 0.2 eu/dL Normal <1.1 [facility] Comment on above: Performed By: #### N UM #### [facility] ([id number]) [address] [place] [address] 24052 US PELVIC WITH TRANSVAGINAL AND DUPLEXon 01-27-2024 US PELVIC WITH TRANSVAGINAL AND DUPLEX US PELVIC WITH TRANSVAGINAL AND DUPLEX CLINICAL INFORMATION: Evaluate for Ovarian Torsion. TECHNIQUE: Real-time transabdominal and transvaginal sonographic evaluation of the pelvis was performed with estevez scale and color flow imaging. Transabdominal imaging performed to evaluate for extra adnexal pelvic pathology. Transvaginal imaging performed for better delineation of the adnexal and endometrial contents. Real time estevez scale, color flow imaging and duplex spectral Doppler waveform analysis evaluation was performed of the major arterial inflow and venous outflow structures of the ovaries with arterial and venous spectral waveforms obtained and reviewed in view of the clinical history of Evaluate for Ovarian Torsion . Duplex spectral Doppler document arterial and venous spectral waveforms documented within the major arterial inflow and venous outflow of both ovaries. Arterial and venous Doppler duplex spectral waveforms were evaluated. COMPARISON: 10/25/2023 CT of abdomen and pelvis dated 10/25/2023. FINDINGS: The uterus measures 8.1 cm x 4.1. 5.5 cm. Endometrium measures 11.2 mm in thickness with laminated appearance likely proliferative phase. Right ovary measures 3.2 cm x 1.8 cm x 2.5 cm. Left ovary measures 5.3 cm x 2.19 x 4.6 cm. Mildly complex cystic structure within left ovary measures 3.7 cm x 2.4 cm x 4.7 cm. No internal color flow documented. The arterial and venous waveforms are within normal limits. IMPRESSION: * No demonstrated evidence for ovarian torsion. * Probable predominantly liquefied hemorrhagic cyst left ovary maximally 4.7 cm. Finalized by Socorro Nixon MD on 01/27/2024 2:39 PM Normal [facility] VAGINITIS PANEL PCRon 2023 VAGINITIS PANEL PCR BACT. VAGINOSIS DNA Not detected (qualifier value) Qualitative results are reported based on detection and quantitation of targeted organism markers which include: Lactobacillus spp. (L. crispatus and L. jensenii), Gardnerella vaginalis, Atopobium vaginae, Bacterial Vaginosis Associated Bacteria-2 (BVAB-2) and Megasphaera-1 HARPER SPECIES DNA Detected (qualifier value) Harper species result based on detection of one or more of the following species: C. albicans, C. tropicalis, C. parapsilosis or C. dubliniensis HARPER KRUSEI DNA Not detected (qualifier value) No Harper krusei detected HARPER GLABRATA DNA Not detected (qualifier value) No Harper glabrata detected TRICHOMONAS VAG DNA Not detected (qualifier value) No Trichomonas vaginalis detected NOTE BD MAX Vaginal Panel has not been evaluated for patients under 18 years old. Results for these patients should be reviewed and assessed in accordance with clinical presentation to determine patient diagnosis. Normal [facility] Comment on above: Performed By: #### C BCA, CMP #### [facility] ([id number]) [address] [facility], [place] [address] CT sinus wo conon 11-25-2023 CT sinus wo con [facility] [address] [place] [address] CT Scan Report Signed Patient: Livia Noyola MR#: [id number] [id number] : 1985 Acct:[id number] Age/Sex: 38 / F ADM Date: 11/25/23 Loc: CT Room: Type: REG CLI Attending Dr: Jennifer Duran DO Copies to: Jennifer Duran DO Ordering Provider: Jennifer Duran DO Date of Service: 11/25/23 CT/CT sinus wo con: J32.9,R05.9 CT Sinuses Without contrast TECHNIQUE: Axial imaging with coronal reconstruction. The CT exam was performed using one or more the following dose reduction techniques: Automated exposure control, adjustment of the MA and/or Kv according to patient size, or use of the iterative reconstruction technique. HISTORY: Recurrent sinusitis. COMPARISON: None NASAL PASSAGEWAYS: Unremarkable OSTIOMEATAL COMPLEXES: Unremarkable SINUSES: No mucosal thickening or fluid levels of the sinuses identified. BONY STRUCTURES: Intact SOFT TISSUES: No soft tissue abnormality seen. NASOPHARYNX: No nasopharyngeal abnormality is identified. MASTOIDS: Unremarkable CT/CT sinus wo con IMPRESSION: No significant mucosal thickening or fluid collections. Impression dictated by: Davi Figueroa M.D.11/25/2023 4:01 PM Dictation Location: [place] [address] Transcribed By: [facility] 11/25/23 1601 Dictated By: Davi Figueroa DO 11/25/23 1559 Signed By: 11/25/23 1601 Normal [facility] CBC AND AUTO DIFFon 10-25-19 24 ABSOLUTE BASOPHIL 0.1 X10E9/L Normal 0.0-0.2 [facility] Comment on above: Performed By: #### C BCA, CMP #### [facility] ([id number]) [address] [place] [address] 60944 ABSOLUTE NEUTROPHIL 4.1 X10E9/L Normal 1.5-6.6 [facility] Comment on above: Performed By: #### C BCA, CMP #### [facility] ([id number]) [address] [place] [address] 33176 Basophils/100 WBC (Bld) 0.9 % Normal [facility] Comment on above: Performed By: #### C BCA, CMP #### [facility] ([id number]) [address] [place] [address] 39773 Eosinophils (Bld) [#/Vol] 0.0 10*3/uL Normal 0.0-0.4 [facility] Comment on above: Performed By: #### C HEATH, CMP #### [facility] ([id number]) [address] [place] [address] 30162 Eosinophils/100 WBC (Bld) 0.1 % Normal [facility] Comment on above: Performed By: #### C HEATH, CMP #### [facility] ([id number]) [address] [place] [address] 65535 Erythrocyte distribution width (RBC) [Ratio] 17.9 % High 11.5-15.0 [facility] Comment on above: Performed By: #### C HEATH, CMP #### [facility] ([id number]) [address] [place] [address] 28687 Hematocrit (Bld) [Volume fraction] 34.6 % Low 35-47 [facility] Comment on above: Performed By: #### C HEATH, CMP #### [facility] ([id number]) [address] [place] [address] 76571 Hemoglobin (Bld) [Mass/Vol] 11.1 g/dL Low 11.7-15.5 [facility] Comment on above: Performed By: #### C HEATH, CMP #### [facility] ([id number]) [address] [place] [address] 44361 Lymphocytes (Bld) [#/Vol] 1.5 10*3/uL Normal 1.0-3.5 [facility] Comment on above: Performed By: #### C HEATH, CMP #### [facility] ([id number]) [address] [place] [address] 17525 Lymphocytes/100 WBC (Bld) 25.6 % Normal [facility] Comment on above: Performed By: #### C HEATH, CMP #### [facility] ([id number]) [address] [place] [address] 96101 MCH (RBC) [Entitic mass] 23.1 pg Low 27-34 [facility] Comment on above: Performed By: #### C BCA, CMP #### [facility] ([id number]) [address] [place] [address] 16892 MCHC (RBC) [Mass/Vol] 32.1 g/dL Normal 32-36 [facility] Comment on above: Performed By: #### C BCA, CMP #### [facility] ([id number]) [address] [place] [address] 69609 MCV (RBC) [Entitic vol] 72 fL Low 80-100 [facility] Comment on above: Performed By: #### C HEATH, CMP #### [facility] ([id number]) [address] [place] [address] 40865 Monocytes (Bld) [#/Vol] 0.3 10*3/uL Normal 0-0.9 [facility] Comment on above: Performed By: #### C HEATH, CMP #### [facility] ([id number]) [address] [place] [address] 91475 Monocytes/100 WBC (Bld) 5.3 % Normal [facility] Comment on above: Performed By: #### C BCA, CMP #### [facility] ([id number]) [address] [place] [address] 53536 Neutrophils/100 WBC (Bld) 68.1 % Normal [facility] Comment on above: Performed By: #### C BCA, CMP #### [facility] ([id number]) [address] [place] [address] 15357 Platelet mean volume (Bld) [Entitic vol] 7.7 fL Normal 7-12 [facility] Comment on above: Performed By: #### C BCA, CMP #### [facility] ([id number]) [address] [place] [address] 34448 Platelets (Bld) [#/Vol] 532 10*3/uL High 150-450 [facility] Comment on above: Performed By: #### C BCA, CMP #### [facility] ([id number]) [address] [place] [address] 40012 RBC COUNT 4.82 X10E12/L Normal 3.80-5.20 [facility] Comment on above: Performed By: #### C BCA, CMP #### [facility] ([id number]) [address] [place] [address] 05199 WBC (Bld) [#/Vol] 6.0 10*3/uL Normal 4.0-11.0 [facility] Comment on above: Performed By: #### C BCA, CMP #### [facility] ([id number]) [address] [place] [address] 14573 COMPREHENSIVE METABOLIC PANE Van 10-25-2023 Albumin [Mass/Vol] 4.7 g/dL Normal 3.2-5.3 [facility] Comment on above: Performed By: #### C BCA, CMP #### [facility] ([id number]) [address] [place] [address] 61617 ALP [Catalytic activity/Vol] 67 U/L Normal 39-130 [facility] Comment on above: Performed By: #### C BCA, CMP #### [facility] ([id number]) [address] [place] [address] 93685 ALT [Catalytic activity/Vol] 23 U/L Normal 0-31 [facility] Comment on above: Performed By: #### C BCA, CMP #### [facility] ([id number]) [address] [place] [address] 57820 Anion gap [Moles/Vol] 11 mmol/L Normal 5-15 [facility] Comment on above: Performed By: #### C BCA, CMP #### [facility] ([id number]) [address] [place] [address] 53636 AST [Catalytic activity/Vol] 20 U/L Normal 0-41 [facility] Comment on above: Performed By: #### C BCA, CMP #### [facility] ([id number]) [address] [place] [address] 17710 Bilirubin [Mass/Vol] 1.0 mg/dL Normal 0.3-1.2 [facility] Comment on above: Performed By: #### C BCA, CMP #### [facility] ([id number]) [address] [place] [address] 22848 Calcium [Mass/Vol] 9.6 mg/dL Normal 8.5-10.5 [facility] Comment on above: Performed By: #### C BCA, CMP #### [facility] ([id number]) [address] [place] [address] 61663 Chloride [Moles/Vol] 106 mmol/L Normal 98-109 [facility] Comment on above: Performed By: #### C BCA, CMP #### [facility] ([id number]) [address] [place] [address] 45139 CO2 [Moles/Vol] 20 mmol/L Low 22-32 [facility] Comment on above: Performed By: #### C BCA, CMP #### [facility] ([id number]) [address] [place] [address] 21878 Creatinine [Mass/Vol] 0.59 mg/dL Normal 0.40-1.00 [facility] Comment on above: Result Comment: METH OD TRACEABLE TO IDMS STANDARD Performed By: #### C BCA, CMP #### [facility] ([id number]) [address] [place] [address] [place] [address] eGFR (CKD-EPI) NON-RACE DEPENDENT >90 Normal >59 [facility] Comment on above: Result Comment: Reported eGFR is based on the CKD-EPI 2020 equation that does not use a race coefficient. Performed By: #### C BCA, CMP #### [facility] ([id number]) [address] [place] [address] 67926 Glucose [Mass/Vol] 124 mg/dL High 65-99 [facility] Comment on above: Performed By: #### C BCA, CMP #### [facility] ([id number]) [address] [place] [address] 21513 Potassium [Moles/Vol] 3.5 mmol/L Normal 3.5-5.0 [facility] Comment on above: Performed By: #### C BCA, CMP #### [facility] ([id number]) [address] [place] [address] 24275 Protein [Mass/Vol] 8.7 g/dL High 6.0-8.0 [facility] Comment on above: Performed By: #### C BCA, CMP #### [facility] ([id number]) [address] [place] [address] 50206 Sodium [Moles/Vol] 137 mmol/L Normal 134-146 [facility] Comment on above: Performed By: #### C BCA, CMP #### [facility] ([id number]) [address] [place] [address] 79654 Urea nitrogen [Mass/Vol] 6 mg/dL Normal 5-23 [facility] Comment on above: Performed By: #### C BCA, CMP #### [facility] ([id number]) [address] [place] [address] ABDOMEN AND PELVIS W CONT on 10-25-2023 CT ABDOMEN AND PELVIS W CONT CT ABDOMEN AND PELVIS W CONT History: RLQ abdominal pain; RLq pain and vomiting. negative us Exam/Technique: CT images of abdomen and pelvis were obtained following intravenous contrast injection. CT does automated exposure control was utilized. All CT scans at this facility use dose modulation, iterative reconstruction, and/or weight based dosing when appropriate to reduce radiation dose to as low as reasonably achievable. Comparison: CT abdomen pelvis 05/25/2023 Findings: Lung bases are grossly unremarkable. There are surgical changes of cholecystectomy. There is moderate volume of retained fecal matter throughout the large bowel loops primarily from the cecum through the splenic flexure. Appendix and small bowel loops are grossly unremarkable. Visceral organs are grossly unremarkable. Both kidneys are unremarkable. There is no free peritoneal air or fluid. Urinary bladder is adequately distended and grossly unremarkable. Uterus is grossly unremarkable. There are multiple right ovarian cysts largest measures 1.6 cm likely within physiologic range for patient's age group. Similar findings were present on prior exam. Portal and mesenteric vessels are widely patent. There is no pathological mesenteric or retroperitoneal lymphadenopathy by size criteria. IMPRESSION: Large volume of retained fecal matter from the cecum to the splenic flexure with no bowel obstruction or localized bowel wall thickening. Findings are likely sequelae of chronic constipation. There are cholecystectomy surgical changes. There are few right ovarian cyst largest measures 1.6 cm likely within physiologic range. Finalized by Pierce Fisher MD on 10/25/2023 7:39 PM Normal [facility] HCG ( test) Ql (U)o n 10-25-2023 Beta HCG ( test) Ql (U) Negative Normal NEG [facility] Comment on above: Performed By: #### 2 106-3 #### [facility] ([id number]) [address] [place] [address] 95440 URN MACROSCOPIC NURon 2023 BILIRUBIN AUDREY Negative Normal NEG [facility] Comment on above: Performed By: #### N UM #### [facility] ([id number]) [address] [place] [address] 38566 BLOOD/HGB AUDREY Negative Normal NEG [facility] Comment on above: Performed By: #### N UM #### [facility] ([id number]) [address] [place] [address] [place] [address] GLUCOSE AUDREY Negative Normal NEG [facility] Comment on above: Performed By: #### N UM #### [facility] ([id number]) [address] [place] [address] 27491 KETONES AUDREY 15 mg/dL Abnormal NEG [facility] Comment on above: Performed By: #### N UM #### [facility] ([id number]) [address] [place] [address] 87455 LEUKOCYTE ESTERASE AUDREY Trace Abnormal NEG [facility] Comment on above: Performed By: #### N UM #### [facility] ([id number]) [address] [place] [address] 06914 NITRITE AUDREY Negative Normal NEG [facility] Comment on above: Performed By: #### N UM #### [facility] ([id number]) [address] [place] [address] 18354 PH AUDREY 7.0 Normal 5.0-8.5 [facility] Comment on above: Performed By: #### N UM #### [facility] ([id number]) [address] [place] [address] 46252 PROTEIN AUDREY Negative Normal NEG [facility] Comment on above: Performed By: #### N UM #### [facility] ([id number]) [address] [place] [address] 19357 SPECIFIC GRAVITY AUDREY 1.020 Normal 1.003-1.035 [facility] Comment on above: Performed By: #### N UM #### [facility] ([id number]) [address] [place] [address] 14263 UROBILINOGEN AUDREY 1.0 eu/dL Normal <1.1 [facility] Comment on above: Performed By: #### N UM #### [facility] ([id number]) [address] [place] [address] 13746 US PELVIC WITH TRANSVAGINAL AND DUPLEXon 10-25-2023 US PELVIC WITH TRANSVAGINAL AND DUPLEX US PELVIC WITH TRANSVAGINAL AND DUPLEX CLINICAL INFORMATION: Evaluate for Ovarian Torsion. Pelvic pain TECHNIQUE: Real-time transabdominal and transvaginal sonographic evaluation of the pelvis was performed with estevez scale and color flow imaging. Transabdominal imaging performed to evaluate for extra adnexal pelvic pathology. Transvaginal imaging performed for better delineation of the adnexal and endometrial contents. Real time estevez scale, color flow imaging and duplex spectral Doppler waveform analysis evaluation was performed of the major arterial inflow and venous outflow structures of the ovaries with arterial and venous spectral waveforms obtained and reviewed in view of the clinical history of Evaluate for Ovarian Torsion . Duplex spectral Doppler document arterial and venous spectral waveforms documented within the major arterial inflow and venous outflow of both ovaries. Arterial and venous Doppler duplex spectral waveforms were evaluated. COMPARISON: CT abdomen pelvis with contrast 05/25/2023 FINDINGS: Uterus 7.2 x 5.0 x 6.3 cm. Homogeneous echotexture. Transvaginal imaging was obtained to better visualize endometrium and ovaries. Endometrium 9 mm. Right ovary 3.2 x 2.5 x 2.8 cm with small follicles, largest simple cyst 1.5 cm. Left ovary 2.5 x 1.1 x 2.8 cm with small follicles. The arterial and venous waveforms are within normal limits. IMPRESSION: * Negative pelvic ultrasound. No evidence for ovarian torsion. Finalized by Aubrey Singh MD on 10/25/2023 6:17 PM Normal [facility] C Urineon 10-02-2023 Bacteria identified Cx Nom [...] Locations R1: This test was performed at: [facility], [address] [place] [address], [id number] , [place], Normal [facility] Comment on above: Performed By: #### 2 [id number], [id number], [id number], [id number], [id number] #### [facility] [facility] [address] [place] [address] BMPon 09-30-2023 Anion gap [Moles/Vol] 13 mmol/L Normal 6-16 [facility] Comment on above: Performed By: #### 2 407827, 2728915, 9148175, 44097775, 4010976 ####[facility] [address] [place] [address] Calcium [Mass/Vol] 9.1 mg/dL Normal 8.9-11.1 [facility] Comment on above: Performed By: #### 2 619208, 9880005, 1021254, 18601736, 8803570 ####[facility] [address] [place] [address] Chloride [Moles/Vol] 105 mmol/L Normal 101-111 [facility] Comment on above: Performed By: #### 2 119211, 5733230, 7745078, 92998334, 7361725 ####[facility] [address] [place] [address] CO2 [Moles/Vol] 23 mmol/L Normal 21-31 [facility] Comment on above: Performed By: #### 2 116881, 6503118, 6689151, 07710208, 3071097 ####[facility] [address] [place] [address] Creatinine [Mass/Vol] 0.8 mg/dL Normal 0.5-1.3 [facility] Comment on above: Performed By: #### 2 135638, 2809333, 1025884, 00413537, 2425108 ####[facility] [address] [place] [address] Glucose [Mass/Vol] 95 mg/dL Normal 55-199 [facility] Comment on above: Performed By: #### 2 391883, 4613704, 4710660, 27343262, 0366224 ####[facility] [address] [place] [address] Potassium [Moles/Vol] 3.1 mmol/L Low 3.5-5.3 [facility] Comment on above: Performed By: #### 2 836952, 6469368, 9314974, 53680148, 8847657 ####[facility] [address] [place] [address] Sodium [Moles/Vol] 138 mmol/L Normal 135-145 [facility] Comment on above: Performed By: #### 2 300208, 9626118, 3146514, 08812979, 5657367 ####[facility] [address] [place] [address] Urea nitrogen [Mass/Vol] 7 mg/dL Normal 5-21 [facility] Comment on above: Performed By: #### 2 046994, 4188116, 9622962, 01323857, 2284775 ####[facility] [address] [place] [address] Urea nitrogen/Creatinine [Mass ratio] 9 No Units Low 10-20 [facility] Comment on above: Performed By: #### 2 553108, 3646772, 5901185, 28309579, 4085402 ####[facility] [address] [place] [address] CBC w/ Auto Diffon 4 Basophils/100 WBC (Bld) 0.3 % Normal 0.0-2.0 [facility] Comment on above: Performed By: #### 2 089062, 1937628, 9279807, 19156803, 4906181 ####[facility] [address] [place] [address] Basophils/Leukocytes Auto (Bld) [Pure # fraction] 0.0 E9/L Normal 0.0-0.2 [facility] Comment on above: Performed By: #### 2 677143, 7923628, 8155674, 01437984, 5017261 ####[address] [address] Eosinophils (Bld) [#/Vol] 0.0 E9/L Normal 0.0-0.5 [facility] Comment on above: Performed By: #### 2 187765, 6261784, 0174402, 59094591, 7075008 ####[address] [address] Eosinophils/100 WBC (Bld) 0.4 % Normal 0.0-8.0 [facility] Comment on above: Performed By: #### 2 800915, 6526166, 5117104, 87662805, 0422514 ####[address] [address] Erythrocyte distribution width (RBC) [Ratio] 18.3 % High 10.9-14.2 [facility] Comment on above: Performed By: #### 2 594661, 3371166, 4327860, 00160942, 7947294 ####[address] [address] Hematocrit (Bld) [Volume fraction] 32.6 % Low 34.0-46.0 [facility] Comment on above: Performed By: #### 2 145948, 8466866, 6952408, 96180066, 0261428 ####[address] [address] Hemoglobin (Bld) [Mass/Vol] 10.3 g/dL Low 12.0-16.0 [facility] Comment on above: Performed By: #### 2 197630, 1211515, 7139477, 35976617, 8796621 ####[address] [address] Lymphocytes (Bld) [#/Vol] 4.1 E9/L High 1.0-4.0 [facility] Comment on above: Performed By: #### 2 877198, 0004198, 2921424, 68189925, 2464117 ####[address] [address] Lymphocytes/100 WBC (Bld) 39.5 % Normal 14.0-50.0 [facility] Comment on above: Performed By: #### 2 405131, 2204567, 3504464, 61344635, 5214993 ####[address] [address] MCH (RBC) [Entitic mass] 23.7 pg Low 27.0-34.0 [facility] Comment on above: Performed By: #### 2 293901, 4074488, 6093194, 93964445, 1623879 ####[address] [address] MCHC (RBC) [Mass/Vol] 31.7 g/dL Normal 31.4-36.0 [facility] Comment on above: Performed By: #### 2 776173, 7712370, 5962245, 76303572, 3324795 ####[address] [address] MCV (RBC) [Entitic vol] 74.9 fL Low 80.0-100.0 [facility] Comment on above: Performed By: #### 2 480408, 6367938, 6083487, 18778564, 5529104 ####[address] [address] Monocytes (Bld) [#/Vol] 0.7 E9/L Normal 0.2-1.0 [facility] Comment on above: Performed By: #### 2 790389, 4187393, 5807624, 33477522, 2290753 ####[address] [address] Neutrophils (Bld) [#/Vol] 5.4 E9/L Normal 2.0-7.5 [facility] Comment on above: Performed By: #### 2 567754, 6040455, 0920474, 40659764, 3989319 ####[address] [address] Neutrophils/100 WBC (Bld) 53.1 % Normal 36.0-75.0 [facility] Comment on above: Performed By: #### 2 635311, 6145283, 4396319, 18517789, 4599650 ####[address] [address] Platelet 476.0 E9/L Normal 150.0-500.0 [facility] Comment on above: Performed By: #### 2 794011, 3544354, 7906609, 13797356, 9352532 ####[address] [address] Platelet mean volume (Bld) [Entitic vol] 7.7 fL Normal 6.4-10.8 [facility] Comment on above: Performed By: #### 2 471899, 0402527, 6682583, 02760961, 9663137 ####[address] [address] RBC (Bld) [#/Vol] 4.3 E12/L Normal 4.3-5.9 [facility] Comment on above: Performed By: #### 2 458682, 4808574, 4582727, 96304637, 7323474 ####[address] [address] WBC corrected for nucl RBC Auto (Bld) [#/Vol] 10.3 E9/L Normal 4.0-11.0 [facility] Comment on above: Performed By: #### 2 654177, 6855103, 4756427, 97282679, 1377037 ####[address] [address] CHEMISTRYOrdered By: SYSTEM SYSTEM on 09-30-2023 Albumin [...] Treatmenton 09-11 Consent for Treatment [id number] 40 [id number] #1.00TIFF Normal [facility] Discharge Instructionson Discharge Instructions [id number] 404 [id number] 6#1.00TIFF Normal [facility] ED Clinical Summaryon 2023 ED Clinical Summary [place] [id number] ED Clinical Summary Person Information Name: LIVIA [facility] Age: 38 Years : 1985 Sex: Female [...] 09/30/2023 02:15:05 ADDRESS: [address] [place] [id number] PHYS DOC NOTES: MEDICAL INFORMATION: Prescriptions Given: [...] Follow up: With: Address: When: Ino Royal [address] [place] [address], [facility] [address], [place] [address] Business (9) In 3 days 10/03/2023 DIAGNOSIS: AP (abdominal pain); Ovarian cyst Normal [facility] ED Note-Physicianon 09-30-19 ED Note-Physician Basic Information [...] taking oral tramadol, Toradol, Bentyl, and a [place] at home and has had no significant relief. She does have some nausea but no vomiting. No change in bowel movements. No urinary symptoms. She reports that she has had multiple ovarian cysts and did schedule a BLOCK HANDLER appointment for possible hysterectomy but that is [...] and Complexity of Problems Differential Diagnosis: [] [facility] Data External documents reviewed: N/A My [...] of 3.1 but is otherwise overall reassuring. 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 Royal and another BLOCK HANDLER in the area to see if he [...] mg/2 mL (more content not included)... Normal [facility] Comment on above: Result Comment: Elec [...] Follow these instructions at home: ? Take puqy-ucr-iegyoti and prescription medicines only as told by [...] Reviewed: 11/06/2020 Elsevier Patient Education ? 2022 [employer] Normal [facility] ED Patient Summaryon 024 ED Patient Summary [address] [address] Patient Discharge Instructions Person Information Name: LIVIA NOYOLA Age: 38 Years Arrival Date: 09/29/2023 23:38:37 Discharge Diagnosis: AP (abdominal pain); Ovarian cyst Primary Care Physician: SHAZIA, XXXX Provider Information Primary Provider: Ritesh Heath DO Advanced Electronic Scale Tester:Shazia The exam and treatment you received in the Emergency Department were for an urgent problem and are not intended as complete care. It is important that you follow up with a doctor, nurse practitioner, or physician?s oceanographer assistant for ongoing care. If your symptoms [...] Follow-up Instructions: With: Address: When: Ino Royal [address] [place], [place] [id number] Business (1) In 3 days 10/03/2023 In the event that this physician does not participate in your insurance network, please consult with your insurance company to find a nearby participating provider. Patient Education Materials: Ovarian Cyst A MESSAGE TO ALL PATIENTS REGARDING OPIOIDS PRESCRIPTION OPIOIDS: WHAT YOU NEED TO KNOW Prescription opioids can be used to help relieve jchvdsba-nz-nhjclp pain and are often prescribed following a [...] be struggling with addiction, tell your health professional healthcare representative and ask for guidance or call [facility]?S National Helpline at 7-113-591-ZSOR. n Source: [employer] Department o (more content not included)... Normal [facility] HEMATOLOGYOrdered By: SYSTEM SYSTEM on 09-30-2023 Basophils/100 [...] 09-30-2023 Albumin [Mass/Vol] 4.4 g/dL Normal 3.3-5.0 [facility] Comment on above: Performed By: #### 2 441387, 7619211, 7901274, 24570574, 4281022 ####[facility] [address] [place] [address] Albumin/Globulin (S) [Mass conc ratio] 1.5 Normal 1.1-2.2 [facility] Comment on above: Performed By: #### 2 854350, 3981527, 9632975, 43002792, 4460501 ####[facility] [address] [place] [address] ALP [Catalytic activity/Vol] 64 Int._Unit/L Normal 21-98 [facility] Comment on above: Performed By: #### 2 399197, 0968343, 1965273, 28096682, 5618716 ####[facility] [address] [place] [address] ALT No additional P-5'-P [Catalytic activity/Vol] 9 Int._Unit/L Normal 6-46 [facility] Comment on above: Performed By: #### 2 674398, 0544530, 6306882, 77692135, 1217168 ####[facility] [address] [place] [address] AST [Catalytic activity/Vol] 12 Int._Unit/L Normal 5-43 [facility] Comment on above: Performed By: #### 2 584099, 3400316, 0845924, 12876201, 2076994 ####[facility] [address] [place] 8859757 Bilirubin [Mass/Vol] 0.2 mg/dL Normal 0.0-1.1 [facility] Comment on above: Performed By: #### 2 893827, 6168269, 1280491, 70920756, 5086745 ####[place] [address] Bilirubin.direct [Mass/Vol] 0.0 mg/dL Normal 0.0-0.4 [facility] Comment on above: Performed By: #### 2 411361, 7901622, 4340136, 74922100, 7063697 ####[facility] [address] [place] [address] Bilirubin.indirect [Mass or moles/Vol] 0.2 mg/dL Normal 0.1-0.9 [facility] Comment on above: Performed By: #### 2 200407, 1732158, 0720518, 54970002, 7200690 ####[facility] [address] [place] [address] Globulin (S) [Mass/Vol] 3.0 g/dL Normal 1.4-4.0 [facility] Comment on above: Performed By: #### 2 965765, 3717053, 9124458, 94802040, 5354367 ####[facility] [address] [place] [address] Protein [Mass/Vol] 7.4 g/dL Normal 6.0-7.8 [facility] Comment on above: Performed By: #### 2 345438, 2054710, 1611654, 96680032, 1865991 ####[facility] [address] [place] [address] Lipase Levelon 09-30-2023 Lipase [Catalytic activity/Vol] 61 U/L High 13-58 [facility] Comment on above: Performed By: #### 2 449579, 7316422, 8730098, 05485784, 64343543 #### [facility] [address] [place] [address] SEROLOGYOrdered By: Ariadne Sheehan on 09-30-2023 HCG.beta subunit (U) [Moles/Vol] Negative Normal [facility] Man Sero U BetaHcg Qualon 09-30-2023 HCG.beta subunit (U) [Moles/Vol] Negative Normal [facility] Comment on above: Performed By: #### 2 493264, 3361199, 2644782, 29809943, 39364393 #### [facility] [address] [place] [address] UA with Cult Rflxon 09-30-19 24 Bacteria Auto Ql (U) Trace Normal Trace Fish [facility] Comment on above: Performed By: #### 2 336001, 1055836, 8984169, 60928008, 80479385 #### [facility] [address] [place] [address] Bilirubin Ql (U) Negative Normal Negative [facility] Comment on above: Performed By: #### 2 254733, 9595793, 3595854, 33791512, 81517415 #### [facility] [address] [place] [address] Clarity (U) Clear Normal Clear [facility] Comment on above: Performed By: #### 2 956322, 6055735, 6916603, 73196298, 74711428 #### [facility] [address] [place] [address] Color (U) Light-Yellow Normal Yellow [facility] Comment on above: Result Comment: Micr oscopic readings are only performed on those samples that meet specific criteria set forth by [facility]. Performed By: #### 2 590184, 6102287, 8677484, 72775931, 80102896 #### [facility] [address] [place] [address] Epithelial cells.squamous Auto (Urine sed) [#/Area] 3-4 Abnormal 0-2 [facility] Comment on above: Performed By: #### 2 240927, 3939074, 3304355, 39303143, 90520415 #### [facility] [address] [place] [address] Glucose Ql (U) Negative Normal Negative [facility] Comment on above: Performed By: #### 2 564953, 0304096, 8470366, 97605340, 18612972 #### [facility] [address] [place] [address] Hemoglobin Auto test strip (U) [Mass/Vol] Trace Abnormal Negative [facility] Comment on above: Performed By: #### 2 962697, 1672209, 7021996, 11133423, 42841367 #### [facility] [address] [place] [address] Ketones Auto test strip Ql (U) Negative Normal Negative [facility] Comment on above: Performed By: #### 2 079133, 4683949, 8463438, 74597400, 72187415 #### [facility] [address] [place] [address] Leukocyte esterase Auto test strip Ql (U) 75 Bertrand/uL Abnormal Negative [facility] Comment on above: Performed By: #### 2 804652, 5074848, 8387345, 97316899, 00801760 #### [facility] [address] [place] [address] Mucus Auto Ql (U) Negative Normal Negative [facility] Comment on above: Performed By: #### 2 538555, 9274283, 7748665, 28810358, 16215822 #### [facility] [address] [place] [address] Nitrite Auto test strip Ql (U) Negative Normal Negative [facility] Comment on above: Performed By: #### 2 897726, 1189378, 2398530, 62128984, 38092930 #### [facility] [address] [place] [address] pH (U) 5.5 [pH] Invalid Interpretation Code 5.0-9.0 [facility] Comment on above: Performed By: #### 2 576802, 9557311, 4354606, 75730041, 22955073 #### [facility] [address] [place] [address] Protein Ql (U) Negative Normal Negative [facility] Comment on above: Performed By: #### 2 236889, 7158968, 3496602, 18996404, 95287626 #### [facility] [address] [place] [address] RBC Ql (U) 4-20 Abnormal 0-3 [facility] Comment on above: Performed By: #### 2 810517, 8209275, 7147323, 44914120, 92781722 #### [facility] [address] [place] [address] Specific gravity (U) [Rel density] 1.017 Invalid Interpretation Code 1.005-1.030 [facility] Comment on above: Performed By: #### 2 573485, 7613283, 0258128, 01974228, 02565198 #### [facility] [address] [place] [address] Urobilinogen (U) [Mass/Vol] Negative Normal Negative [facility] Comment on above: Performed By: #### 2 989335, 3722227, 6748990, 40493921, 58749738 #### [facility] [address] [place] [address] WBC Auto (Urine sed) [#/Area] 0-5 Normal 0-5 [facility] Comment on above: Performed By: #### 2 301070, 7755758, 5729729, 58127135, 36549057 #### [facility] [address] [place] [address] Type of Urine collection method Clean Catch Normal [facility] Comment on above: Performed By: #### 2 996427, 3734199, 3866604, 61306109, 94819752 #### [facility] [address] [place] [address] URINALYSISOrdered By: SYSTEM SYSTEM on 09-30-2023 Bacteria Auto Ql (U) Trace graded/HPF Normal Tra cegraded/ HPF [facility] UA Auto SS Bilirubin Ql (U) Negative Normal Negativemg/ d L [facility] UA Auto SS Clarity (U) Clear (09/30/23 12:08 AM) Normal Clear [facility] UA Auto SS Color (U) Light-Yellow 1 (09/30/23 12:08 AM) Normal Yellow [facility] UA Auto SS Comment on above: Interpretive Data: M icroscopic readings are only performed on those samples that meet specific criteria set forth by [facility]. Epithelial cells.squamous Auto (Urine sed) [#/Area] [...] 4-20 graded/HPF Invalid Interpretation Code 0-3graded/HP F [facility] UA Auto SS Specific gravity (U) [Rel density] 1.017 *NA* (09/30/23 12:08 AM) Invalid Interpretation Code 1.005 - 1.030 [facility] UA Auto SS Urobilinogen (U) [Mass/Vol] Negative Normal Negativemg/d L [facility] UA Auto SS WBC Auto (Urine sed) [#/Area] 0-5 graded/HPF Normal 0-5graded/HP F [facility] UA Auto SS URINALYSISOrdered By: Ritesh bishop on 09-30-2023 UA Spec Desc Clean Catch (09/30/23 12:08 AM) Normal [facility] UA Auto SS US Doppler Abd/Pelvis Comple kelby 09-30-2023 US Doppler Abd/Pelvis Complete Exam Date/Time: 09/30/2023 02:04 EDT Reason for Exam: Torsion Report PLEASE SEE US Pelvis Non-OB Complete REPORT DATED: 09/30/2023. Ordering Provider: Ritesh Heath FINAL REPORT Dictated: 09/30/2023 4:11 am Harvey Leslie MD Signed (Electronic Signature): 09/30/2023 4:11 am Signed by: Harvey Leslie MD Transcribed by: MILLIE Technologist: GERDA Miller [facility] US Pelvis Non-OB Completeon 09-30-2023 US Pelvis [...] Transvaginal Ultrasound Performed Uterus Position Anteverted Normal [facility] US Transvaginal Non-OBon US Transvaginal Non-OB Exam Date/Time: 09/30/2023 02:03 EDT Reason for Exam: pssible torsion, known large cyst;Other (please specify) Report PLEASE SEE US Pelvis Non-OB Complete REPORT DATED: 09/30/2023. Ordering Provider: Ritesh Heath FINAL REPORT Dictated: 09/30/2023 4:11 am Harvey Leslie MD Signed (Electronic Signature): 09/30/2023 4:11 am Signed by: Harvey Leslie MD Transcribed by: MILLIE Technologist: GERDA Normal [facility] eGFRon 09-30-2023 eGFR 97 mL/min/1.73 m2 Normal >=59 [facility] Comment on above: Order Comment: Order added by Discern Expert. Performed By: #### 2 752639, 3064140, 3129127, 50909680, 75957495 #### [facility] [address] [place], [place] [address] ED Clinical Summaryon 2023 ED Clinical Summary [address] [address] ED Clinical Summary Person Information Name: LIVIA [facility] Age: 38 Years : 1985 Sex: Female [...] 09/26/2023 18:13:56 ADDRESS: [address] [place] [id number] PHYS DOC NOTES: MEDICAL INFORMATION: Prescriptions Given: New Medications [id number], [address], [place] [id number], [phone] diflunisal (diflunisal 500 mg Tab) 1 Tablets [...] INFORMATION: Instructions: Follow up: With: Address: When: [employer] [facility] [address] [place] [address] Business (1) In 3 days 09/29/2023 With: Address: When: Tarun BRADEN [facility], [address] [place] [address] [place], [place] [id number] Business (1) In 3 days 09/29/2023 With: Address: When: XXXX NONE , [place] In 3 days DIAGNOSIS: Abdominal pain; Constipation; Ovarian cyst Normal [facility] ED Patient Education Noteon 09-27-2023 ED Patient Education Note Normal [facility] ED Patient Summaryon 024 ED Patient Summary [address] [address] Patient Discharge Instructions Person Information Name: LIVIA NOYOLA Age: 38 Years Arrival Date: 09/26/2023 13:54:18 Discharge Diagnosis: Abdominal pain; Constipation; Ovarian cyst Primary Care Physician: NONE, XXXX Provider Information Primary Provider: Konstantin Penny DO Advanced Electronic Scale Tester:Shazia The exam and treatment you received in the Emergency Department were for an urgent problem and are not intended as complete care. It is important that you follow up with a doctor, nurse practitioner, or physician?s oceanographer assistant for ongoing care. If your symptoms become worse or you do not improve as expected and you are unable to reach your usual health care provider, you should return to the Emergency Department. We are available 24 hours a day. LIVIA NOYOLA has been given the following list of patient education materials, prescriptions and follow-up instructions: Follow-up Instructions: With: Address: When: [employer] [address] [address] Business (1) In 3 days 09/29/2023 With: Address: When: Tarun BRADEN [address] [place] [address] Business (1) In 3 days 09/29/2023 With: Address: When: XXXX [facility] , [place] In 3 days In the event that this physician does not participate in your insurance network, please consult with your insurance company to find a nearby participating provider. Patient Education Materials: A MESSAGE TO ALL PATIENTS REGARDING OPIOIDS PRESCRIPTION OPIOIDS: WHAT YOU NEED TO KNOW Prescription opioids can be used to help relieve tmjvvhiy-wk-zbrtyw pain and are often prescribed following a [...] and overdose. (more content not included)... Normal [facility] B hCG Qualon 09-26-2023 Beta HCG ( test) Ql Negative Normal [facility] Comment on above: Order Comment: FER dubois attempting lab work from IV start per Pt request. Phleb on standby if unable to get labs, [id number] 09/26/2023 14:42:36 EDT Performed By: #### 2 754240, 2843138, 6031152, 85052264, 19368959 #### [facility] [address] [place] [address] CBC w/ Auto Diffon 4 Anisocytosis Ql (Bld) PRESENT Invalid Interpretation Code [facility] Comment on above: Performed By: #### 2 080684, 8655601, 9428665, 02931435, 31170252 #### [facility] [address] [place] [address] Basophils/100 WBC (Bld) 0.8 % Normal 0.0-2.0 [facility] Comment on above: Performed By: #### 2 170567, 6597116, 8159728, 27422110, 04477369 #### [facility] [address] [place] [address] 79821 Basophils/Leukocytes Auto (Bld) [Pure # fraction] 0.1 E9/L Normal 0.0-0.2 [facility] Comment on above: Performed By: #### 2 829727, 9464526, 1739415, 08394036, 53539713 #### [facility] [address] [place] [address] Eosinophils (Bld) [#/Vol] 0.0 E9/L Normal 0.0-0.5 [facility] Comment on above: Performed By: #### 2 458168, 6317460, 8935853, 70645791, 22911206 #### [facility] [address] [place] [address] Eosinophils/100 WBC (Bld) 0.0 % Normal 0.0-8.0 [facility] Comment on above: Performed By: #### 2 376812, 8325529, 0639865, 66010760, 58241884 #### [facility] [address] [place] [address] 72572 Hypochromia Auto Ql (Bld) PRESENT Invalid Interpretation Code [facility] Comment on above: Performed By: #### 2 998583, 0974804, 5537677, 55220510, 34204199 #### [facility] [address] [place] [address] 17391 Lymphocytes (Bld) [#/Vol] 1.6 E9/L Normal 1.0-4.0 [facility] Comment on above: Performed By: #### 2 538410, 0390955, 1255286, 88891944, 19210597 #### [facility] [address] [place] [address] 31269 Lymphocytes/100 WBC (Bld) 22.7 % Normal 14.0-50.0 [facility] Comment on above: Performed By: #### 2 741967, 5424715, 8925777, 93276447, 97010993 #### [facility] [address] [place] [address] 00431 Microcytes Ql (Bld) PRESENT Invalid Interpretation Code [facility] Comment on above: Performed By: #### 2 032635, 0207424, 9068862, 61470582, 99129854 #### [facility] [address] [place] [address] 44161 Monocytes (Bld) [#/Vol] 0.3 E9/L Normal 0.2-1.0 [facility] Comment on above: Performed By: #### 2 957254, 9257949, 9728744, 01326814, 11327586 #### [facility] [address] [place] [address] 50157 Neutrophils (Bld) [#/Vol] 5.1 E9/L Normal 2.0-7.5 [facility] Comment on above: Performed By: #### 2 274538, 6951961, 5840277, 38524272, 73281631 #### [facility] [address] [place] [address] 52908 Neutrophils/100 WBC (Bld) 71.6 % Normal 36.0-75.0 [facility] Comment on above: Performed By: #### 2 617540, 3585019, 7126527, 49634058, 72721734 #### [facility] [address] [place] [address] 08426 Erythrocyte distribution width (RBC) [Ratio] 17.8 % High 10.9-14.2 [facility] Comment on above: Performed By: #### 2 730037, 8704979, 4852344, 65476058, 68490851 #### [facility] [address] [place] [address] 20000 Hematocrit (Bld) [Volume fraction] 36.2 % Normal 34.0-46.0 [facility] Comment on above: Performed By: #### 2 365939, 5526294, 7013422, 30580331, 53734317 #### [facility] [address] [place] [address] 13679 Hemoglobin (Bld) [Mass/Vol] 11.2 g/dL Low 12.0-16.0 [facility] Comment on above: Performed By: #### 2 732060, 2973226, 1411011, 68208691, 07055336 #### [facility] [address] [place] [address] 33691 MCH (RBC) [Entitic mass] 23.2 pg Low 27.0-34.0 [facility] Comment on above: Performed By: #### 2 888782, 6590285, 6529861, 44120898, 11680343 #### [facility] [address] [place] [address] 80093 MCHC (RBC) [Mass/Vol] 31.0 g/dL Low 31.4-36.0 [facility] Comment on above: Performed By: #### 2 856771, 0534017, 0857780, 45976055, 85267086 #### [facility] [address] [place] [address] 12346 MCV (RBC) [Entitic vol] 74.9 fL Low 80.0-100.0 [facility] Comment on above: Performed By: #### 2 760327, 3889053, 8736916, 90246712, 45473218 #### [facility] [address] [place] [address] 11074 Platelet mean volume (Bld) [Entitic vol] 7.5 fL Normal 6.4-10.8 [facility] Comment on above: Performed By: #### 2 395259, 1635959, 5328524, 65278926, 38678475 #### [facility] [address] [place] [address] 78183 Platelets (Bld) [#/Vol] 461.0 E9/L Normal 150.0-500.0 [facility] Comment on above: Performed By: #### 2 754044, 6705480, 6724174, 15594736, 75030020 #### [facility] [address] [place] [address] 98813 RBC (Bld) [#/Vol] 4.8 E12/L Normal 4.3-5.9 [facility] Comment on above: Performed By: #### 2 543087, 9453237, 4450046, 26188051, 33397719 #### [facility] [address] [place] [address] 46259 WBC corrected for nucl RBC Auto (Bld) [#/Vol] 7.1 E9/L Normal 4.0-11.0 [facility] Comment on above: Performed By: #### 2 255869, 8227218, 5728051, 43526357, 02989809 #### [facility] [address] [place] [address] 04051 CHEMISTRYOrdered By: SYSTEM SYSTEM on 09-26-2023 Amphetamines [...] 09-26-2023 Albumin [Mass/Vol] 4.7 g/dL Normal 3.3-5.0 [facility] Comment on above: Performed By: #### 2 485174, 4710394, 4649198, 66770049, 30889872 #### [facility] [address] [place] [address] Albumin/Globulin (S) [Mass conc ratio] 1.3 Normal 1.1-2.2 [facility] Comment on above: Performed By: #### 2 750432, 4584569, 8602523, 22262219, 42249281 #### [facility] [address] [place] [address] ALP [Catalytic activity/Vol] 61 Int._Unit/L Normal 21-98 [facility] Comment on above: Performed By: #### 2 101398, 0590055, 4807169, 15035177, 01537251 #### [facility] [address] [place] [address] 52438 ALT No additional P-5'-P [Catalytic activity/Vol] 11 Int._Unit/L Normal 6-46 [facility] Comment on above: Performed By: #### 2 924896, 3540774, 3196219, 78155092, 39255253 #### [facility] [address] [place] [address] Anion gap [Moles/Vol] 15 mmol/L Normal 6-16 [facility] Comment on above: Performed By: #### 2 388082, 1969191, 3379272, 29576614, 67869127 #### [facility] [address] [place] [address] AST [Catalytic activity/Vol] 16 Int._Unit/L Normal 5-43 [facility] Comment on above: Performed By: #### 2 772781, 2590594, 1971260, 75908747, 83967195 #### [facility] [address] [place] [address] Bilirubin [Mass/Vol] 0.8 mg/dL Normal 0.0-1.1 [facility] Comment on above: Performed By: #### 2 408380, 2965446, 8649034, 94467820, 87532715 #### [facility] [address] [place] [address] Calcium [Mass/Vol] 9.7 mg/dL Normal 8.9-11.1 [facility] Comment on above: Performed By: #### 2 977587, 9138671, 2860123, 06673812, 54300804 #### [facility] [address] [place] [address] Chloride [Moles/Vol] 107 mmol/L Normal 101-[address] [facility] Comment on above: Performed By: #### 2 599011, 8686999, 3995112, 94531213, 72261727 #### [facility] [address] [place] [address] CO2 [Moles/Vol] 20 mmol/L Low 21-31 [facility] Comment on above: Performed By: #### 2 251157, 6780398, 0062489, 85786134, 10122666 #### [facility] [address] [place] [address] Creatinine [Mass/Vol] 0.7 mg/dL Normal 0.5-1.3 [facility] Comment on above: Performed By: #### 2 703488, 2151065, 0307710, 25444213, 06515107 #### [facility] [address] [place] [address] Globulin (S) [Mass/Vol] 3.6 g/dL Normal 1.4-4.0 [facility] Comment on above: Performed By: #### 2 324711, 3155065, 0112848, 06587372, 77069069 #### [facility] [address] [place] [address] Glucose [Mass/Vol] 120 mg/dL Normal 55-199 [facility] Comment on above: Performed By: #### 2 141741, 8244027, 3262049, 24792713, 83307450 #### [facility] [address] [place] [address] Potassium [Moles/Vol] 3.8 mmol/L Normal 3.5-5.3 [facility] Comment on above: Performed By: #### 2 767904, 4616361, 7659304, 61129673, 99862883 #### [facility] [address] [place] [address] Protein [Mass/Vol] 8.3 g/dL High 6.0-7.8 [facility] Comment on above: Performed By: #### 2 145477, 0803898, 5892903, 43475549, 10562622 #### [facility] [address] [place] [address] Sodium [Moles/Vol] 138 mmol/L Normal 135-145 [facility] Comment on above: Performed By: #### 2 655806, 4802260, 3547482, 63342471, 51605075 #### [facility] [address] [place] [address] 66274 Urea nitrogen [Mass/Vol] 5 mg/dL Normal 5-21 [facility] Comment on above: Performed By: #### 2 758703, 3397018, 4041097, 16451034, 74655268 #### [facility] [address] [place] [address] 70247 Urea nitrogen/Creatinine [Mass ratio] 7 No Units Low 10-20 [facility] Comment on above: Performed By: #### 2 436156, 9012896, 9978353, 14814832, 42558332 #### [facility] [address] [place] [address] Abdomen/Pelvis w/ Contras ton 09-26-2023 CT [...] 300 Contrast amount in ml's: 100 Normal [facility] Consent for Treatmenton 09-11 Consent for Treatment [id number] #1.00TIFF Normal [facility] Discharge Instructionson Discharge Instructions [id number] #1.00TIFF Normal [facility] ED Note-Physicianon 09-26-19 24 ED Note-Physician Basic Information Time Seen: Konstantin Penny DO 09/26/2023 14:25 Chief Complaint c/o nausea and left abdominal pain radiating to back that started back up yesterday. took bentyl ibuprofen and tramadol around noon with no relief. recent admission to [place] a week ago for intusseption, ovarian cyst, elevated lactic. denies V/D History of Present Illness 38 year old female presents to the emergency department with chief complaint of abdominal pain. patient states this pain started yesterday and has associated nausea without vomiting. Patient states she was admitted 10 days ago to [facility] for intussusception, ovarian cysts, and elevated lactic. She states she was admitted for one day and that she had another CT done that showed resolution of the intussusception. She reports she was discharged home but went back to [place] ED yesterday for similar pain. She reports [...] and noted. We did review workup from [facility] just recently. Risks and benefits of obtaining [...] differential diagnosis. We did refer her to [facility] for follow-up. Patient also was found to have some constipation on CT therefore we talked about dietary and lifestyle modifications and I did prescribe MiraLAX here as well. She is to follow-up in the outpatient setting return to ER symptoms should change or worsen she is comfortable with this plan. I, Dr. Penny had a csao-li-tcmh interaction with the patient. I personally performed [...] q12hr, # 20 tab(s), Refills(s) 0, [id number] 165, alejandro, 09/26/23 14:18:00 EDT, Height/Length Dosing, 81.2, kg, 09/26/23 14:18:00 EDT, Weight Dosing hyoscyamine, 0.125 mg = 1 tab(s), Oral, QID, X 5 day(s), # 20 tab(s), Refills(s) 0, Pharmacy: [facility]/pharmacy #[id number], 165, cm, 09/26/23 14:18:00 EDT, Height/Length Dosing, 81.2, kg, 09/26/23 14:18:00 EDT, Weight Dosing ketorolac, 30 mg = 1 mL, Injection, IV, Once, Stop date 09/26/23 15:40:00 EDT, STAT, Start date 09/26/23 15:40:00 EDT, 09/26/23 15:40:00 EDT polyethylene glycol 3350, 17 gm, Oral, Daily, X 7 day(s), # 119 gm, Refills(s) 0, [id number] 165, alejandro, 09/26/23 14:18:00 EDT, (more content not included)... Normal [facility] Comment on above: Result Comment: Elec [...] Lipase [Catalytic activity/Vol] 18 U/L Normal 13-58 [facility] Comment on above: Performed By: #### 2 728998, 3847040, 9132450, 07695108, 51529001 #### [facility] [address] [place] [address] Outside Recordson 09-26-2023 Outside Records [id number] 0#1.00TIFF Normal [facility] SEROLOGYOrdered By: Nohemi Taylor on 09-26-2023 Beta HCG ( test) Ql Negative (09/26/23 2:45 PM) Normal [facility] Man Sero U Drug Screenon 09-26-2023 Amphetamines Screen method >1000 ng/mL Ql (U) Negative Normal NEGATIVE [facility] Comment on above: Result Comment: Nega tive Cutoff: <1000 ng/mL Performed By: #### 2 435121, 2646663, 4905793, 04343525, 99163924 #### [facility] [address] [place] [address] Barbiturates Screen Ql (U) Negative Normal NEGATIVE [facility] Comment on above: Result Comment: Nega tive Cutoff: <200 ng/mL Performed By: #### 2 883680, 9015596, 1305209, 74210027, 02221637 #### [facility] [address] [place] [address] Benzodiazepines Ql (U) Negative Normal NEGATIVE [facility] Comment on above: Result Comment: Nega tive Cutoff: <200 ng/mL Performed By: #### 2 326987, 6726235, 7794620, 48141843, 89410194 #### [facility] [address] [place] [address] Cannabinoids Screen Ql (U) Negative Normal NEGATIVE [facility] Comment on above: Result Comment: Nega tive Cutoff: <50 ng/mL Performed By: #### 2 183756, 5937067, 5095869, 45244521, 49834963 #### [facility] [address] [place] [address] Cocaine Ql (U) Negative Normal NEGATIVE [facility] Comment on above: Result Comment: Nega tive Cutoff: <300 ng/mL Performed By: #### 2 379982, 3531514, 3459544, 91804582, 20752476 #### [facility] [address] [place] [address] 84616 Opiates Screen Ql (U) Negative Normal NEGATIVE [facility] Comment on above: Result Comment: Nega tive Cutoff: <300 ng/mL Performed By: #### 2 815128, 8483962, 5523734, 17862373, 33879931 #### [facility] [address] [place] [address] 06295 Phencyclidine Screen method >25 ng/mL Ql (U) Negative Normal NEGATIVE [facility] Comment on above: Result Comment: Nega tive Cutoff: <25 ng/mL These drug screen results are to be used for medical (i.e., treatment) purposes only. Unconfirmed drug screening results must not be used for non-medical purposes (e.g., employment testing, legal testing). Performed By: #### 2 061658, 0141741, 7554774, 79820246, 04742703 #### [facility] [address] [place] [address] 56214 U Fentanyl Negative Normal NEGATIVE [facility] Comment on above: Result Comment: Nega tive Cutoff: <5 ng/mL These drug screen results are to be used for medical (i.e., treatment) purposes only. Unconfirmed drug screening results must not be used for non-medical purposes (e.g., employment testing, legal testing). Performed By: #### 2 320039, 7567039, 3902698, 48842913, 74474847 #### [facility] [address] [place] [address] 84257 UA with Cult Rflxon 09-26-19 24 Bilirubin Ql (U) Negative Normal Negative [facility] Comment on above: Performed By: #### 2 520197, 0882024, 0529557, 63037654, 28045640 #### [facility] [address] [place] [address] Clarity (U) Clear Normal Clear [facility] Comment on above: Performed By: #### 2 252845, 2910477, 8738632, 14775373, 12751024 #### [facility] [address] [place] [address] Color (U) Colorless Abnormal Yellow [facility] Comment on above: Result Comment: Micr oscopic readings are only performed on those samples that meet specific criteria set forth by [facility]. Performed By: #### 2 146770, 3780696, 7666791, 42484735, 60971137 #### [facility] [address] [place] [address] Glucose Ql (U) Negative Normal Negative [facility] Comment on above: Performed By: #### 2 753915, 3725030, 8100148, 06549986, 56128663 #### [facility] [address] [place] [address] 69295 Hemoglobin Auto test strip (U) [Mass/Vol] Negative Normal Negative [facility] Comment on above: Performed By: #### 2 777346, 0193224, 3515863, 79883735, 56964051 #### [facility] [address] [place] [address] 40405 Ketones Auto test strip Ql (U) Negative Normal Negative [facility] Comment on above: Performed By: #### 2 474354, 5545846, 4994662, 63390052, 89608359 #### [facility] [address] [place] [address] 66063 Leukocyte esterase Auto test strip Ql (U) Negative Normal Negative [facility] Comment on above: Performed By: #### 2 712774, 1362227, 2551591, 70701652, 24317571 #### [facility] [address] [place] [address] Nitrite Auto test strip Ql (U) Negative Normal Negative [facility] Comment on above: Performed By: #### 2 626411, 3939090, 8101361, 82243415, 35470174 #### [facility] [address] [place] [address] 65098 pH (U) 6.0 [pH] Invalid Interpretation Code 5.0-9.0 [facility] Comment on above: Performed By: #### 2 427084, 4358702, 1762467, 39642677, 65637131 #### [facility] [address] [place] [address] 49478 Protein Ql (U) Negative Normal Negative [facility] Comment on above: Performed By: #### 2 202160, 8439010, 0361011, 91208222, 66714659 #### [facility] [address] [place] [address] 26368 Specific gravity (U) [Rel density] 1.004 Invalid Interpretation Code 1.005-1.030 [facility] Comment on above: Performed By: #### 2 410487, 8274914, 1220358, 53962945, 73093879 #### [facility] [address] [place] [address] 48614 Urobilinogen (U) [Mass/Vol] Negative Normal Negative [facility] Comment on above: Performed By: #### 2 690419, 6428202, 5814134, 31210105, 49390485 #### [facility] [address] [place] [address] 22089 Type of Urine collection method Clean Catch Normal [facility] Comment on above: Performed By: #### 2 635173, 8939061, 1023180, 18224872, 71359951 #### [facility] [address] [place] [address] 36512 URINALYSISOrdered By: SYSTEM SYSTEM on 04-15-2024 Bilirubin Ql (U) Negative Normal Negativemg/ d L [facility] UA Auto SS Clarity (U) Clear (09/26/23 2:49 PM) Normal Clear [facility] UA Auto SS Color (U) Colorless 3 *ABN* (09/26/23 2:49 PM) Invalid Interpretation Code Yellow [facility] UA Auto SS Comment on above: Interpretive Data: M icroscopic readings are only performed on those samples that meet specific criteria set forth by [facility]. Glucose Ql (U) Negative Normal Negativemg/d [...] Normal Negativemg/d L [facility] UA Auto SS Specific gravity (U) [Rel density] 1.004 *NA* (09/26/23 2:49 PM) Invalid Interpretation Code 1.005 - 1.030 [facility] UA Auto SS Urobilinogen (U) [Mass/Vol] Negative Normal Negativemg/d L [facility] UA Auto SS URINALYSISOrdered By: Konstantin dillard on 09-26-2023 UA Spec Desc Clean Catch (09/26/23 2:49 PM) Normal [facility] UA Auto SS US Pelvis Non-OB Completeon [...] Transvaginal Ultrasound Performed Uterus Position Anteverted Normal [facility] US Transvaginal Non-OBon US Transvaginal Non-OB Exam Date/Time: 09/26/2023 17:41 EDT Reason for Exam: Pelvic pain Report Please see ultrasound pelvis non-OB complete report Ordering Provider: Konstantin Penny FINAL REPORT Dictated: 09/26/2023 5:53 pm Chad Mo DO Signed (Electronic Signature): 09/26/2023 5:53 pm Signed by: Chad Mo DO Transcribed by: MILLIE Technologist: HAILEY Normal [facility] eGFRon 09-26-2023 eGFR 114 mL/min/1.73 m2 Normal >=59 [facility] Comment on above: Order Comment: Order added by Discern Expert. Performed By: #### 2 986899, 8268195, 3127399, 36024541, 70371563 #### [facility] [address] [place] [address] CBC With Platelet and Differ entialon 09-06-2023 Basophils (Bld) [#/Vol] 0.1 10*3/uL Normal 0.0-0.2 [facility] Comment on above: Performed By: #### C BCWD #### [facility] [address] [place] [address] Basophils/100 WBC (Bld) 0.6 % Normal [facility] Comment on above: Performed By: #### C BCWD #### [facility] [address] [place] [address] Eosinophils (Bld) [#/Vol] 0.1 10*3/uL Normal 0.0-0.7 [facility] Comment on above: Performed By: #### C BCWD #### [facility] [address] [place] [address] Eosinophils/100 WBC (Bld) 0.6 % Normal [facility] Comment on above: Performed By: #### C BCWD #### [facility] [address] [place] [address] Erythrocyte distribution width (RBC) [Ratio] 15.9 % Critically high 11.5-14.5 [facility] Comment on above: Performed By: #### C BCWD #### [facility] [address] [place] [address] Hematocrit (Bld) [Volume fraction] 34.5 % Low 37.0-47.0 [facility] Comment on above: Performed By: #### C BCWD #### [facility] [address] [place] [address] Hemoglobin (Bld) [Mass/Vol] 10.1 g/dL Low 12.0-16.0 [facility] Comment on above: Performed By: #### C BCWD #### [facility] [address] [place] [address] Lymphocytes (Bld) [#/Vol] 4.4 10*3/uL Normal 1.0-4.8 [facility] Comment on above: Performed By: #### C BCWD #### [facility] [address] [place] [address] Lymphocytes/100 WBC (Bld) 54.2 % Normal [facility] Comment on above: Performed By: #### C BCWD #### [facility] [address] [place] [address] MCH (RBC) [Entitic mass] 22.9 pg Low 27.0-31.3 [facility] Comment on above: Performed By: #### C BCWD #### [facility] [address] [place] [address] MCHC 29.3 % Low 33.0-37.0 [facility] Comment on above: Performed By: #### C BCWD #### [facility] [address] [place] [address] MCV (RBC) [Entitic vol] 78.2 fL Low 79.4-94.8 [facility] Comment on above: Performed By: #### C BCWD #### [facility] [address] [place] [id number] Monocytes (Bld) [#/Vol] 0.5 10*3/uL Normal 0.2-0.8 [facility] Comment on above: Performed By: #### C BCWD #### [facility] [address] [place] [address] Monocytes/100 WBC (Bld) 6.5 % Normal [facility] Comment on above: Performed By: #### C BCWD #### [facility] [address] [place] [address] Neutrophils (Bld) [#/Vol] 3.1 10*3/uL Normal 1.4-6.5 [facility] Comment on above: Performed By: #### C BCWD #### [facility] [address] [place] [address] Neutrophils/100 WBC (Bld) 37.9 % Normal [facility] Comment on above: Performed By: #### C BCWD #### [facility] [address] [place] [address] Platelets (Bld) [#/Vol] 482 10*3/uL Critically high 130-40 0 [facility] Comment on above: Performed By: #### C BCWD #### [facility] [address] [place] [address] RBC (Bld) [#/Vol] 4.41 10*6/uL Normal 4.20-5.40 [facility] Comment on above: Performed By: #### C BCWD #### [facility] [address] [place] [address] WBC (Bld) [#/Vol] 8.1 10*3/uL Normal 4.8-10.8 [facility] Comment on above: Performed By: #### C BCWD #### [facility] [address] [place] [address] Comprehensive Metabolic Pane van 09-06-2023 Albumin [Mass/Vol] 4.4 g/dL Normal 3.5-4.6 [facility] Comment on above: Performed By: #### C MP #### [facility] [address] [place] [address] ALP [Catalytic activity/Vol] 72 U/L Normal 40-130 [facility] Comment on above: Performed By: #### C MP #### [facility] [address] [place] [address] ALT [Catalytic activity/Vol] 15 U/L Normal 0-33 [facility] Comment on above: Performed By: #### C MP #### [facility] [address] [place] [address] Anion gap [Moles/Vol] 11 mmol/L Normal 9-15 [facility] Comment on above: Performed By: #### C MP #### [facility] [address] [place] [address] AST [Catalytic activity/Vol] 18 U/L Normal 0-35 [facility] Comment on above: Performed By: #### C MP #### [facility] [address] [place] [address] Bilirubin [Mass/Vol] 0.4 mg/dL Normal 0.2-0.7 [facility] Comment on above: Performed By: #### C MP #### [facility] [address] [place] [address] Calcium [Mass/Vol] 9.5 mg/dL Normal 8.5-9.9 [facility] Comment on above: Performed By: #### C MP #### [facility] [address] [place] [address] Chloride [Moles/Vol] 102 mmol/L Normal 95-107 [facility] Comment on above: Performed By: #### C MP #### [facility] [address] [place] [address] CO2 [Moles/Vol] 24 mmol/L Normal 20-31 [facility] Comment on above: Performed By: #### C MP #### [facility] [address] [place] [address] Creatinine [Mass/Vol] 0.59 mg/dL Normal 0.50-0.90 [facility] Comment on above: Performed By: #### C MP #### [facility] [address] [place] [address] GFR >90.0 Normal >60 [facility] Comment on above: Result Comment: Osbaldoi atric calculator link https://www.kidney.org/professionals/kdoqi/gfr_calculatorped Effective Mar 15, [...] Performed By: #### C MP #### [facility] [address] [place] [address] Globulin (S) [Mass/Vol] 3.5 g/dL Normal 2.3-3.[address] [facility] Comment on above: Performed By: #### C MP #### [facility] [address] [place] [address] Glucose [Mass/Vol] 98 mg/dL Normal 70-99 [facility] Comment on above: Performed By: #### C MP #### [facility] [address] [place] [address] Potassium [Moles/Vol] 3.2 mmol/L Low 3.4-4.9 [facility] Comment on above: Performed By: #### C MP #### [facility] [address] [place] [address] Protein [Mass/Vol] 7.9 g/dL Normal 6.3-8.0 [facility] Comment on above: Performed By: #### C MP #### [facility] [address] [place] [address] Sodium [Moles/Vol] 137 mmol/L Normal 135-144 [facility] Comment on above: Performed By: #### C MP #### [facility] [address] [place] [address] Urea nitrogen [Mass/Vol] 4 mg/dL Low 6-20 [facility] Comment on above: Performed By: #### C MP #### [facility] [address] [place] [address] US NON OB TRANSVAGINALon US NON OB [...] Campos MD 09/06/23 Final result Normal [facility] US PELVIS COMPLETEon 09-05- 024 US PELVIS COMPLETE EXAMINATION: PELVIC ULTRASOUND [...] Campos MD 09/06/23 Final result Normal [facility] Urinalysis, reflex to cultur silvino 09-06-2023 Urine Reflexed to Culture Not Indicated Normal [facility] Comment on above: Performed By: #### U AR #### [facility] [address] [place] [address] Bilirubin Ql (U) Negative Normal Negative [facility] Comment on above: Performed By: #### U AR #### [facility] [address] [place] [address] Clarity (U) Clear Normal Clear [facility] Comment on above: Performed By: #### U AR #### [facility] [address] [place] [address] Color (U) Yellow Normal Straw/[place] [facility] Comment on above: Performed By: #### U AR #### [facility] [address] [place] [address] Glucose Ql (U) >=1000 Abnormal Negative [facility] Comment on above: Performed By: #### U AR #### [facility] [address] [place] [address] Hemoglobin Ql (U) TRACE Abnormal Negative [facility] Comment on above: Performed By: #### U AR #### [facility] [address] [place] [address] Ketones Ql (U) >=80 Abnormal Negative [facility] Comment on above: Performed By: #### U AR #### [facility] [address] [place] [address] Leukocyte esterase Test strip Ql (U) Negative Normal Negative [facility] Comment on above: Performed By: #### U AR #### [facility] [address] [place] [address] Nitrite Ql (U) Negative Normal Negative [facility] Comment on above: Performed By: #### U AR #### [facility] [address] [place] [address] pH (U) 5.0 [pH] Normal 5.0-9.0 [facility] Comment on above: Performed By: #### U AR #### [facility] [address] [place] [address] Protein Ql (U) TRACE Abnormal Negative [facility] Comment on above: Performed By: #### U AR #### [facility] [address] [place] [address] Specific gravity (U) [Rel density] 1.025 Normal 1.005-1.03 [facility] Comment on above: Performed By: #### U AR #### [facility] [address] [place] [address] Urobilinogen Qn (U) 0.2 {Ivone'U}/dL Normal < 2.0 [facility] Comment on above: Performed By: #### U AR #### [facility] [address] [place] [address] Urine Microscopicon 09-06-19 24 Bacteria LM.HPF (Urine sed) [#/Area] Negative Normal Negative [facility] Comment on above: Performed By: #### U ARELIS #### [facility] [address] [place] [address] Urine Epithelial Cells Auto 0-2 Normal 0-5 [facility] Comment on above: Performed By: #### U ARELIS #### [facility] [address] [place] [address] Urine Hyaline Casts Auto 0-1 Normal 0-5 [facility] Comment on above: Performed By: #### U ARELIS #### [facility] [address] [place] [address] Urine RBC Auto 3-5 Abnormal 0-5 [facility] Comment on above: Performed By: #### U ARELIS #### [facility] [address] [place] [address] Urine WBC Auto 0-2 Normal 0-5 [facility] Comment on above: Performed By: #### U ARELIS #### [facility] [address] [place] [address] ED Note-Physicianon 08-01-19 ED Note-Physician Basic Information Time Seen: Jignesh [...] endometritis for which she follows with a BLOCK HANDLER at the [facility]. Review of Systems A 10 point [...] for discharge home and follow-up with her BLOCK HANDLER. Short course of pain medication as prescribed after an OARRS review for this patient. Return precautions were discussed. All questions were answered. The patient was discharged home for outpatient follow-up for her acute on chronic pain. Assessment/Plan Abdominal pain, acute (R10.9: Unspecified abdominal pain) Ordered: acetaminophen-oxycod one, 1 tab(s), Oral, q6hr Pain 8-10 for 3 day(s), 12 tab(s), Refill(s) 0, [id number], 165.1, cm, 07/31/23 15:42:00 EST, Height/Length [...] Discharge D (more content not included)... Normal [facility] Comment on above: Result Comment: Elec tronically Signed By: Jignesh Dumont DO\.br\Date and Time Signed: 08/01/23 09:21 EST B hCG Qualon 07-31-2023 Beta HCG ( test) Ql Negative Normal [facility] Comment on above: Performed By: #### 2 387278, 9089253, 5587168, 60285325, 76770792 #### [facility] [address] [place] [address] BMPon 07-31-2023 Anion gap [Moles/Vol] 15 mmol/L Normal 6-16 [facility] Comment on above: Performed By: #### 2 033773, 9434127, 7468418, 97739706, 47557307 #### [facility] [address] [place] [address] BUN/Creat Ratio 4 No Units Low 10-20 [facility] Comment on above: Performed By: #### 2 886149, 7682982, 0595807, 57042369, 11154842 #### [facility] [address] [place] [address] Calcium [Mass/Vol] 9.6 mg/dL Normal 8.9-11.1 [facility] Comment on above: Performed By: #### 2 410474, 9283897, 7935926, 77689203, 05251273 #### [facility] [address] [place] [address] Chloride [Moles/Vol] 106 mmol/L Normal 101-111 [facility] Comment on above: Performed By: #### 2 965091, 8624438, 1798797, 50396088, 57718810 #### [facility] [address] [place] [address] CO2 [Moles/Vol] 21 mmol/L Normal 21-31 [facility] Comment on above: Performed By: #### 2 975569, 0183963, 0357550, 09928025, 95427619 #### [facility] [address] [place] [address] Creatinine [Mass/Vol] 0.9 mg/dL Normal 0.5-1.3 [facility] Comment on above: Performed By: #### 2 792844, 4304778, 9088700, 32185598, 37846118 #### [facility] [address] [place] [address] Glucose [Mass/Vol] 109 mg/dL Normal 55-199 [facility] Comment on above: Performed By: #### 2 189981, 2653118, 4243539, 91582209, 68307020 #### [facility] [address] [place] [address] Potassium [Moles/Vol] 3.6 mmol/L Normal 3.5-5.3 [facility] Comment on above: Performed By: #### 2 426389, 4315332, 6109770, 38729120, 85115585 #### [facility] [address] [place] [address] Sodium [Moles/Vol] 138 mmol/L Normal 135-145 [facility] Comment on above: Performed By: #### 2 002214, 5521078, 4094173, 10445364, 45274107 #### [facility] [address] [place] [address] Urea nitrogen [Mass/Vol] mg/dL Low 5-21 [facility] Comment on above: Performed By: #### 2 170022, 0723489, 3237534, 95785078, 26534218 #### [facility] [address] [place] [address] CBC w/ Auto Diffon 4 Anisocytosis Ql (Bld) PRESENT Invalid Interpretation Code [facility] Comment on above: Performed By: #### 2 221156, 5570513, 3378006, 40536415, 50528880 #### [facility] [address] [place] [address] Microcyte PRESENT Invalid Interpretation Code [facility] Comment on above: Performed By: #### 2 546502, 3490992, 0200516, 85122247, 51540401 #### [facility] [address] [place] [address] RBC morphology finding Nom (Bld) SEE MORPHOLOGY Invalid Interpretation Code [facility] Comment on above: Performed By: #### 2 510361, 7017271, 9042393, 47545953, 83369767 #### [facility] [address] [place] [address] Basophil Absolute 0.1 E9/L Normal 0.0-0.2 [facility] Comment on above: Performed By: #### 2 517242, 5430929, 6699269, 95945983, 80942699 #### [facility] [address] [place] [address] Basophils/100 WBC (Bld) 1.1 % Normal 0.0-2.0 [facility] Comment on above: Performed By: #### 2 846468, 6545613, 8394800, 41272162, 71148241 #### [facility] [address] [place] [address] Eos Absolute 0.0 E9/L Normal 0.0-0.5 [facility] Comment on above: Performed By: #### 2 385826, 3734789, 5072907, 97536481, 93355767 #### [facility] [address] [place] [address] Eosinophils/100 WBC (Bld) 0.2 % Normal 0.0-8.0 [facility] Comment on above: Performed By: #### 2 707813, 0931746, 0906778, 81334582, 09910801 #### [facility] [address] [place] [address] Erythrocyte distribution width (RBC) [Ratio] 16.5 % High 10.9-14.2 [facility] Comment on above: Performed By: #### 2 349816, 1365525, 7446915, 34857641, 56442203 #### [facility] [address] [place] [address] Hematocrit (Bld) [Volume fraction] 36.0 % Normal 34.0-46.0 [facility] Comment on above: Performed By: #### 2 897420, 9206232, 4924540, 80789302, 58782562 #### [facility] [address] [place] [address] Hemoglobin (Bld) [Mass/Vol] 11.4 g/dL Low 12.0-16.0 [facility] Comment on above: Performed By: #### 2 790905, 7667953, 9875596, 01618995, 63840773 #### [facility] [address] [place] [address] Lymph Absolute 2.2 E9/L Normal 1.0-4.0 [facility] Comment on above: Performed By: #### 2 437256, 6891944, 6617585, 32157997, 77856320 #### [facility] [address] [place] [address] Lymphocytes/100 WBC (Bld) 25.3 % Normal 14.0-50.0 [facility] Comment on above: Performed By: #### 2 071155, 0506963, 6328258, 90771032, 56503987 #### [facility] [address] [place] [address] MCH (RBC) [Entitic mass] 24.0 pg Low 27.0-34.0 [facility] Comment on above: Performed By: #### 2 244690, 2838016, 2498559, 08804515, 17754810 #### [facility] [address] [place] [address] MCHC (RBC) [Mass/Vol] 31.9 g/dL Normal 31.4-36.0 [facility] Comment on above: Performed By: #### 2 370316, 8414867, 1581497, 30128272, 84182703 #### [facility] [address] [place] [address] MCV (RBC) [Entitic vol] 75.2 fL Low 80.0-100.0 [facility] Comment on above: Performed By: #### 2 238934, 1806310, 8898464, 51549776, 76339741 #### [facility] [address] [place] [address] Kent Absolute 0.5 E9/L Normal 0.2-1.0 [facility] Comment on above: Performed By: #### 2 317662, 8201107, 6364494, 89681522, 55168879 #### [facility] [address] [place] [address] Monocytes/100 WBC (Bld) 5.4 % Normal 4.0-14.0 [facility] Comment on above: Performed By: #### 2 230911, 7685444, 4228485, 05346592, 90913341 #### [facility] [address] [place] [address] Neutro Absolute 5.9 E9/L Normal 2.0-7.5 [facility] Comment on above: Performed By: #### 2 293659, 3195026, 5345053, 44468406, 55354775 #### [facility] [address] [place] [address] Neutro Auto 68.0 % Normal 36.0-75.0 [facility] Comment on above: Performed By: #### 2 964309, 0005246, 6138155, 78387593, 68407154 #### [facility] [address] [place] [address] Platelet 612.0 E9/L High 150.0-500.0 [facility] Comment on above: Performed By: #### 2 916109, 1764729, 6430224, 91969851, 82149833 #### [facility] [address] [place] [address] Platelet mean volume (Bld) [Entitic vol] 7.4 fL Normal 6.4-10.8 [facility] Comment on above: Performed By: #### 2 807010, 9121298, 6070761, 30309214, 08437675 #### [facility] [address] [place] [address] RBC 4.7 E12/L Normal 4.3-5.9 [facility] Comment on above: Performed By: #### 2 226657, 8079781, 4289514, 89361161, 33127604 #### [facility] [address] [place] [address] WBC 8.6 E9/L Normal 4.0-11.0 [facility] Comment on above: Performed By: #### 2 861183, 5939141, 6151202, 68682487, 33090866 #### [facility] [address] [place] [address] CHEMISTRYOrdered By: SYSTEM SYSTEM on 07-31-2023 Albumin [...] osseous findings. Lower thorax: Unremarkable. Ordering Provider: Jginesh Dumont FINAL REPORT Dictated: 07/31/2023 5:23 pm Akhil Stone MD Signed (Electronic Signature): 07/31/2023 5:23 pm Signed by: Akhil Stone MD Transcribed by: MILLIE Technologist: LUCI Technical Comments Rectal Contrast Given? No Oral contrast amount in ml's: 0 Normal [facility] Discharge Instructionson Discharge Instructions [id number] [id number] #1.00TIFF Normal [facility] ED Clinical Summaryon 2023 ED Clinical Summary [place] [id number] ED Clinical Summary Person Information Name: LIVIA NOYOLA/[facility] Age: 38 Years : 1985 Sex: Female [...] 07/31/2023 18:03:59 ADDRESS: [address] [place] [id number] PHYS DOC NOTES: MEDICAL INFORMATION: Prescriptions Given: New Medications [facility], [address] [place], [place] [id number], [phone] acetaminophen-oxycod one (Percocet 5 mg-325 mg oral [...] up: With: Address: When: Follow-up with your BLOCK HANDLER at [facility] In 3 days 08/03/2023 Comments: Call [...] worsening symptoms. DIAGNOSIS: Abdominal pain, acute Normal [facility] ED Patient Education Noteon 07-31-2023 ED [...] these instructions at home: Medicines ? Take takv-omb-xawnjmr and prescription medicines only as told by [...] your condition for any changes. ? Take rfxt-zvp-uuqkgrd and prescription medicines only as told by [...] Reviewed: 10/08/2019 Elsevier Patient Education ? 2022 [employer] Normal [facility] ED Patient Summaryon 024 ED Patient Summary [address] [address] Patient Discharge Instructions Person Information Name: LIVIA NOYOLA Age: 38 Years Arrival Date: 07/31/2023 15:33:06 Discharge Diagnosis: Abdominal pain, acute Primary Care Physician: NONE, XXXX Provider Information Primary Provider: Jignesh Dumont DO Advanced Electronic Scale Tester:Shazia The exam and treatment you received in the Emergency Department were for an urgent problem and are not intended as complete care. It is important that you follow up with a doctor, nurse practitioner, or physician?s oceanographer assistant for ongoing care. If your symptoms [...] Instructions: With: Address: When: Follow-up with your BLOCK HANDLER at [facility] In 3 days 08/03/2023 Comments: Call [...] opioids can be used to help relieve lfrgeauc-ie-kspuzy pain and are often prescribed following a [...] and al (more content not included)... Normal [facility] HEMATOLOGYOrdered By: Sloane Mazariegos on 07-31-2023 [...] Low 80.0 - 100.0 fL Remisol Heme [place] Absolute 0.5 E9/L Normal 0.2 - 1.0 [...] 07-31-2023 Albumin [Mass/Vol] 4.6 g/dL Normal 3.3-5.0 [facility] Comment on above: Performed By: #### 2 182707, 8138816, 6959347, 76745025, 09400777 #### [facility] [address] [place] [address] Albumin/Globulin [Mass ratio] 1.4 {ratio} Normal 1.1-2.2 [facility] Comment on above: Performed By: #### 2 944176, 3816108, 0674166, 10148518, 93174775 #### [facility] [address] [place] [address] Alk Phos 73 Int._Unit/L Normal 21-98 [facility] Comment on above: Performed By: #### 2 519405, 9974993, 2411443, 79042844, 07372681 #### [facility] [address] [place] [address] ALT 10 Int._Unit/L Normal 6-46 [facility] Comment on above: Performed By: #### 2 409079, 4876003, 6098264, 65117616, 05916179 #### [facility] [address] [place] [address] AST 11 Int._Unit/L Normal 5-43 [facility] Comment on above: Performed By: #### 2 499713, 9363659, 6797775, 85979396, 13258499 #### [facility] [address] [place] [address] Bili Direct 0.1 mg/dL Normal 0.0-0.4 [facility] Comment on above: Performed By: #### 2 294322, 6821157, 3262565, 97783821, 44391196 #### [facility] [address] [place] [address] Bili Indirect 0.4 mg/dL Normal 0.1-0.9 [facility] Comment on above: Performed By: #### 2 988329, 2680902, 8243473, 54976696, 37954815 #### [facility] [address] [place] [address] Bili Total 0.5 mg/dL Normal 0.0-1.1 [facility] Comment on above: Performed By: #### 2 255793, 6555310, 6663898, 77188023, 12860034 #### [facility] [address] [place] [address] Globulin (S) [Mass/Vol] 3.3 g/dL Normal 1.4-4.0 [facility] Comment on above: Performed By: #### 2 638680, 9333408, 6192663, 90598606, 94474159 #### [facility] [address] [place] [address] Protein [Mass/Vol] 7.9 g/dL High 6.0-7.8 [facility] Comment on above: Performed By: #### 2 295525, 3644086, 0908824, 84088916, 47173599 #### [facility] [address] [place] [address] Monitor Recordon 07-31-2023 Monitor Record [id number] 2#1.00TIFF Normal [facility] SEROLOGYOrdered By: Felicity patel on 07-31-2023 Beta HCG ( test) Ql Negative (07/31/23 4:20 PM) Normal [facility] Man Sero UA With Cult Reflexon 2023 Bacteria LM Ql (Urine sed) TRACE Normal Trace [facility] Comment on above: Performed By: #### 1 6851692 ####[facility] [address] [place] [address] Bilirubin Ql (U) Negative Normal Negative [facility] Comment on above: Performed By: #### 1 3731128 ####[facility] [address] [place] [address] Clarity (U) CLEAR Normal Clear [facility] Comment on above: Performed By: #### 1 7373186 ####[facility] [address] [place] [address] Color (U) YELLOW Normal Yellow [facility] Comment on above: Performed By: #### 1 3595838 ####[address] [address] Epithelial cells.squamous LM.HPF (Urine sed) [#/Area] 0-2 Normal 0-2 [facility] [facility] Comment on above: Performed By: #### 1 [id number] ####[facility] [address] [place] [address] Glucose Test strip (U) [Mass/Vol] Negative Normal Negative [facility] Comment on above: Performed By: #### 1 [id number] ####[facility] [address] [place] [address] Hemoglobin Ql (U) Negative Normal Negative [facility] Comment on above: Performed By: #### 1 [id number] ####[facility] [address] [place] [address] Ketones (U) [Mass/Vol] 1+ Abnormal Negative Fi [facility] Comment on above: Performed By: #### 1 [id number] ####[facility] [address] [place] [address] [place].plasma/[place]. RBC (Bld) [Mass ratio] 0-3 Normal 0-3 [facility] Comment on above: Performed By: #### 1 [id number] ####[facility] [address] [place] [address]271 Mucus Ql (Urine sed) TRACE Normal Fish [facility] Comment on above: Performed By: #### 1 [id number] ####[facility] [address] [place] [address] Nitrite Ql (U) Negative Normal Negative [facility] Comment on above: Performed By: #### 1 0010612 ####[facility] [address] [place] [address] pH (U) 8.5 [pH] Invalid Interpretation Code 5.0-9.0 [facility] Comment on above: Performed By: #### 1 0720430 ####[place] [address] [place] [address] Protein (U) [Mass/Vol] Negative Normal Negative [facility] Comment on above: Performed By: #### 1 [id number] ####[address] [address] Specific gravity (U) [Rel density] 1.015 Invalid Interpretation Code 1.005-1.030 [facility] Comment on above: Performed By: #### 1 [id number] ####[address] [address] Type of Urine collection method Clean Catch Normal [facility] Comment on above: Performed By: #### 1 1217434 ####[address] [address] Urobilinogen Qn (U) 0.2 {Ivone'U}/dL Normal 0.0-1.0 [facility] Comment on above: Performed By: #### 1 5742371 ####[facility] [address] [place] [address] WBC Auto Ql (U) Negative Normal Negative [facility] Comment on above: Performed By: #### 1 1380730 ####[facility] [address] [place] [address] WBC LM.HPF (Urine sed) [#/Area] 0-5 Normal 0-5 [facility] Comment on above: Performed By: #### 1 2642184 ####[address] [place] [address] URINALYSISOrdered By: Felicity George on 07-31-2023 Bacteria LM Ql (Urine sed) Trace /HPF Normal Trace/HPF [facility] UA Auto SS Bilirubin Ql (U) Negative (07/31/23 4:30 PM) Normal Negative [facility] UA Auto SS Clarity (U) Clear (07/31/23 4:30 PM) Normal Clear [facility] UA Auto SS Color (U) Yellow (07/31/23 [...] Interpretation Code Negative [facility] UA Auto SS [place]plasma/[place]. RBC (Bld) [Mass ratio] 0-3 /HPF Normal [...] [facility] UA Auto SS Urobilinogen Qn (U) 0.5623592 {Ivone'U}/dL Normal 0.0 - 1.0 EU/dL [facility] UA Auto SS WBC Auto Ql (U) Negative (07/31/23 4:30 PM) Normal Negative [facility] UA Auto SS WBC LM.HPF (Urine sed) [#/Area] 0-5 /HPF Normal 0-5/HPF [facility] UA Auto SS eGFRon 07-31-2023 eGFR 85 mL/min/1.73 m2 Normal >=59 [facility] Comment on above: Order Comment: Order added by Discern Expert. Performed By: #### 2 194028, [id number], [id number], [id number], [id number] #### [facility] [address] [place] [address] ED NOTEon 06-23-2023 ED NOTE HNO ID: [id number] Author: DENNIS CAMARGO RN Service: ? Author Type: Registered Nurse Type: ED Notes Filed: 06/22/2023 22:17 Note Text: Patient given verbal and written D/C instructions. Medications and follow up care discussed. Instructed to return to ED if conditions and symptoms persist or worsen. All questions addressed and answered pt verbalized understanding. Pt discharged to [facility] noted. Normal [facility] HAV IgM Ser Qlon 06-23-2023 HAV IgM Ql (S) Negative Normal Negative [facility] Comment on above: Order Comment: Speci men Type: BLOOD SPECIMENOrdering Facility: [facility] Address: [address] [place] [address] Result Comment: No e vidence of recent infection with Hepatitis A virus. Performed By: #### 3 1204-1, 5195-3, 78684-4 ####[facility] [id number] [facility] [id number] [place] [address] [place] HBV core IgM Ser Qlon 2023 HBV core IgM Ql (S) Negative Normal Negative [facility] Comment on above: Order Comment: Roselyn conway Type: BLOOD SPECIMENOrdering Facility: [facility] Address: [address] [place] [address] Result Comment: No e vidence of recent infection with Hepatitis B virus. Should recent infection be suspected, repeat testing may be considered 3-4 weeks after this draw. Performed By: #### 3 1204-1, 5195-3, 08400-1 ####[facility] [id number] [place] [address] [place] HBV surface Ag Ser Qlon 06-13 HBV surface Ag Ql (S) Negative Normal Negative [facility] Comment on above: Order Comment: Speci men Type: BLOOD SPECIMENOrdering Facility: [facility] Address: [address] [place] [address] Performed By: #### 3 1204-1, 5195-3, ####[facility] [id number] [place] [address] [place] HCV RNA SerPl SENAIT+probe-aCnc on 06-23-2023 HCV RNA SENAIT+probe Qn Not detected Normal HCV RNA not detected by PCR. [facility] Comment on above: Order Comment: Speci men Type: BLOOD SPECIMEN [facility] Address: [address] [place] [address] Performed By: #### 1 1011-4 #### [facility] CLIA [id number] [place] ALLIED HEALTHon 06-22-2023 ALLIED HEALTH HNO ID: [id number] Author: SELENA AMADOR RT(R) Service: Radiology Author [...] DATE: June 22, 2023 TIME: 7:46 PM [facility] HNO ID: [id number] Author: DELLA BEST RDMS, CARLOST Service: Radiology Author Type: Product Safety Specialist Type: Allied Health Filed: 06/22/2023 18:55 Note [...] RDMS, RVT June 22, 2023 6:55 PM Normal [facility] CBC W Auto Differential pane l (Bld)on 06-22-2023 Basophils (Bld) [#/Vol] 0.03 10*3/uL Normal <0.11 [facility] Comment on above: Order Comment: Speci men Type: BLOOD SPECIMENOrdering Facility: [facility] Address: [address] [place] [address] Performed By: #### 5 7021-8 ####[facility] [id number] [address] [place] [address] [place] Basophils/100 WBC (Bld) 0.6 % Normal [facility] Comment on above: Order Comment: Speci men Type: BLOOD SPECIMENOrdering Facility: [facility] Address: [address] [place] [address] Performed By: #### 5 7021-8 ####[facility]ORY[facility] [id number] [place] [address] [place] Differential cell count method Nom (Bld) Auto Normal [facility] Comment on above: Order Comment: Speci men Type: BLOOD SPECIMENOrdering Facility: [facility] Address: [address] [place] [address] Performed By: #### 5 7021-8 ####[facility]ORYCLIA [id number] [place] [address] [place] Eosinophils (Bld) [#/Vol] 0.03 10*3/uL Normal <0.46 [facility] Comment on above: Order Comment: Speci men Type: BLOOD SPECIMENOrdering Facility: [facility] Address: [address] [place] [address] Performed By: #### 5 7021-8 ####[facility]ORYCLIA [id number] [place] [address] [place] Eosinophils/100 WBC (Bld) 0.6 % [facility] Comment on above: Order Comment: Speci men Type: BLOOD SPECIMENOrdering Facility: [facility] Address: [address] [place] [address] Performed By: #### 5 7021-8 ####[facility]ORYCLIA [id number] [address] [place] [address] [place] Erythrocyte distribution width (RBC) [Ratio] 16.5 % High 11.5-15.0 [facility] Comment on above: Order Comment: Speci men Type: BLOOD SPECIMENOrdering Facility: [facility] Address: [address] [place] [address] Performed By: #### 5 7021-8 ####[facility]ORY[facility] [id number] [address] [place] [address] [place] Hematocrit (Bld) [Volume fraction] 37.7 % Normal 36.0-46.0 [facility] Comment on above: Order Comment: Speci men Type: BLOOD SPECIMENOrdering Facility: [facility] Address: [address] [place] [address] Performed By: #### 5 7021-8 ####[facility]ORYCLIA [id number] [address] [place] [address] [place] Hemoglobin (Bld) [Mass/Vol] 11.7 g/dL Normal 11.5-15.5 [facility] Comment on above: Order Comment: Speci men Type: BLOOD SPECIMENOrdering Facility: [facility] Address: [address] [place] [address] Performed By: #### 5 7021-8 ####[facility]ORYCLIA [id number] [address] [place] [address] [place] Immature granulocytes (Bld) [#/Vol] 10*3/uL Normal <0.10 [facility] Comment on above: Order Comment: Speci men Type: BLOOD SPECIMENOrdering Facility: [facility] Address: [address] [place] [address] Performed By: #### 5 7021-8 ####[facility]ORYCL[facility] [id number] [address] [place] [address] [place] Immature granulocytes/100 WBC (Bld) 0.4 % Normal [facility] Comment on above: Order Comment: Speci men Type: BLOOD SPECIMENOrdering Facility: [facility] Address: [address] [place] [address] Performed By: #### 5 7021-8 ####[facility]ATORYCLIA [id number] [address] [place] [address] [place] Lymphocytes (Bld) [#/Vol] 1.87 10*3/uL Normal 1.00-4.00 [facility] Comment on above: Order Comment: Speci men Type: BLOOD SPECIMENOrdering Facility: [facility] Address: [address] [place] [address] Performed By: #### 5 7021-8 ####[facility]ATORYCLIA [id number] [address] [place], [place] [address] [facility] [place] Lymphocytes/100 WBC (Bld) 34.4 % Normal [facility] Comment on above: Order Comment: Speci men Type: BLOOD SPECIMENOrdering Facility: [facility] Address: [address] [place] [address] Performed By: #### 5 7021-8 ####[facility]ORYCLIA [id number] [address] [place] [address] [place] MCH (RBC) [Entitic mass] 24.5 pg Low 26.0-34.0 [facility] Comment on above: Order Comment: Speci men Type: BLOOD SPECIMENOrdering Facility: [facility] Address: [address] [place] [address] Performed By: #### 5 7021-8 ####[facility]ATORYCLIA [id number] [address] [place], [place] [address] [place] MCHC (RBC) [Mass/Vol] 31.0 g/dL Normal 30.5-36.0 [facility] Comment on above: Order Comment: Speci men Type: BLOOD SPECIMENOrdering Facility: [facility] Address: [address] [place] [address] Performed By: #### 5 7021-8 ####[facility] LABORATORYCLIA [id number] [address] [place] [address] [place] MCV (RBC) [Entitic vol] 79.0 fL Low 80.0-100.0 L [facility] Comment on above: Order Comment: Speci men Type: BLOOD SPECIMENOrdering Facility: [facility] Address: [address] [place] [address] Performed By: #### 5 7021-8 ####[facility]ATORYCLIA [id number] [address] [place] [address] [place] Monocytes (Bld) [#/Vol] 0.25 10*3/uL Normal <0.87 [facility] Comment on above: Order Comment: Speci men Type: BLOOD SPECIMENOrdering Facility: [facility] Address: [address] [place] [address] Performed By: #### 5 7021-8 ####[facility]ATORYCLIA [id number] [address] [place] Monocytes/100 WBC (Bld) 4.6 % Normal [facility] Comment on above: Order Comment: Speci men Type: BLOOD SPECIMENOrdering Facility: [facility] Address: [address] [place] [address] Performed By: #### 5 7021-8 ####[facility]ORATORYCLIA [id number] [place] [address] [place] Neutrophils (Bld) [#/Vol] 3.23 10*3/uL Normal 1.45-7.50 [facility] Comment on above: Order Comment: Speci men Type: BLOOD SPECIMENOrdering Facility: [facility] Address: [address] [place] [address] Performed By: #### 5 7021-8 ####[facility]ATORYCLIA [id number] [address] [place] Neutrophils/100 WBC (Bld) 59.4 % Normal [facility] Comment on above: Order Comment: Speci men Type: BLOOD SPECIMENOrdering Facility: [facility] Address: [address] [place] [address] Performed By: #### 5 7021-8 ####[facility]ORATORYCLIA [id number] [place] [address] [place] Nucleated RBC (Bld) [#/Vol] 10*3/uL Normal <0.01 [facility] Comment on above: Order Comment: Speci men Type: BLOOD SPECIMENOrdering Facility: [facility] Address: [address] [place] [address] Performed By: #### 5 7021-8 ####[facility] LABORATORYCLIA [id number] [address] [place] [address] [place] Nucleated RBC/100 WBC (Bld) [Ratio] 0.0 /100 WBC Normal [facility] Comment on above: Order Comment: Speci men Type: BLOOD SPECIMENOrdering Facility: [facility] Address: [address] [place] [address] Performed By: #### 5 7021-8 ####[facility] LABORATORYCLIA [id number] [address] [place] [address] [place] Platelet mean volume (Bld) [Entitic vol] 9.4 fL Normal 9.0-12.7 [facility] Comment on above: Order Comment: Speci men Type: BLOOD SPECIMENOrdering Facility: [facility] Address: [address] [place] [address] Performed By: #### 5 7021-8 ####[facility] LABORATORYCLIA [id number] [place] [address] [place] Platelets (Bld) [#/Vol] 486 10*3/uL High 150-400 [facility] Comment on above: Order Comment: Speci men Type: BLOOD SPECIMENOrdering Facility: [facility] Address: [address] [place] [address] Performed By: #### 5 7021-8 ####[facility] LABORATORYCLIA [id number] [address] [place] [address] [place] RBC (Bld) [#/Vol] 4.77 10*6/uL Normal 3.90-5.20 [facility] Comment on above: Order Comment: Speci men Type: BLOOD SPECIMENOrdering Facility: [facility] Address: [address] [place] [address] Performed By: #### 5 7021-8 ####[facility] LABORATORYCLIA [id number] [place] [id number] [place] WBC (Bld) [#/Vol] 5.43 10*3/uL Normal 3.70-11.00 [facility] Comment on above: Order Comment: Speci men Type: BLOOD SPECIMENOrdering Facility: [facility] Address: [place] [address] Performed By: #### 5 7021-8 ####[facility] LABORATORYCLIA [id number] [place] [id number] [place] CT ABD/PEL W [...] Tissues: No significant finding. Lower thorax: Unremarkable. Field Representative/Health Education (topogram) images: Unremarkable. IMPRESSION: No acute intra-abdominal or pelvic process identified. Genetic Technologist: ANTONIO Transcribe Date/Time: Jun 22 2023 8:25P Dictated by : CHAD SCHILLING MD This examination was interpreted and the report reviewed and electronically signed by: CHAD SCHILLING MD on Jun 22 2023 8:29PM EST [id number] CN Normal [facility] Comprehensive metabolic 2000 panelon 06-22-2023 Albumin [Mass/Vol] 4.8 g/dL Normal 3.9-4.9 [facility] Comment on above: Order Comment: Speci men Type: BLOOD SPECIMENOrdering Facility: [facility] Address: [address] [place] [address] Performed By: #### 2 4323-8, 3040-3, ####[facility] LABORATORYCLIA [id number] [address] [place], [place] [address] [place] ALP [Catalytic activity/Vol] 108 U/L Normal 34-123 [facility] Comment on above: Order Comment: Speci men Type: BLOOD SPECIMENOrdering Facility: [facility] Address: [address] [place] [address] Performed By: #### 2 4323-8, 3040-3, ####[facility] LABORATORYCLIA [id number] [place] [id number] [place] ALT [Catalytic activity/Vol] 63 U/L High 7-38 [facility] Comment on above: Order Comment: Speci men Type: BLOOD SPECIMENOrdering Facility: [facility] Address: [address] [place] [address] Performed By: #### 2 4323-8, 3040-3, ####[facility] LABORATORYCLIA [id number] [place] [id number] [place] Anion gap [Moles/Vol] 13 mmol/L Normal 9-18 [facility] Comment on above: Order Comment: Speci men Type: BLOOD SPECIMENOrdering Facility: [facility] Address: [address] [place] [address] Performed By: #### 2 4323-8, 3040-3, 53425-7 ####[facility] LABORATORYCLIA [id number] [place] [id number] [place] AST [Catalytic activity/Vol] 109 U/L High 13-35 [facility] Comment on above: Order Comment: Speci men Type: BLOOD SPECIMENOrdering Facility: [facility] Address: [place] [address] Performed By: #### 2 4323-8, 3039-3, ####[facility] LABORATORYCLIA [id number] [address] [place], [place] [address] [place] Bilirubin [Mass/Vol] 0.4 mg/dL Normal 0.2-1.3 [facility] Comment on above: Order Comment: Speci men Type: BLOOD SPECIMENOrdering Facility: [facility] Address: [place] [address] Performed By: #### 2 4323-8, 3, ####[facility] LABORATORYCLIA [id number] [address] [place], [place] [address] [place] Calcium [Mass/Vol] 9.6 mg/dL Normal 8.5-10.2 [facility] Comment on above: Order Comment: Speci men Type: BLOOD SPECIMENOrdering Facility: [facility] Address: [place] [address] Performed By: #### 2 4323-8, 3, ####[facility] LABORATORYCLIA [id number] [place] [id number] [place] Chloride [Moles/Vol] 102 mmol/L Normal 97-105 [facility] Comment on above: Order Comment: Speci men Type: BLOOD SPECIMENOrdering Facility: [facility] Address: [place] [address] Performed By: #### 2 4323-8, 3, ####[facility] LABORATORYCLIA [id number] [place] [id number] [place] CO2 [Moles/Vol] 23 mmol/L Normal 22-30 [facility] Comment on above: Order Comment: Speci men Type: BLOOD SPECIMENOrdering Facility: [facility] Address: [address] [facility] [address] Performed By: #### 2 4323-8, 3040-3, 36318-5 ####[facility] LABORATORYCLIA [id number] [place] [id number] [place] Creatinine [Mass/Vol] 0.64 mg/dL Normal 0.58-0.96 [facility] Comment on above: Order Comment: Roselyn conway Type: BLOOD SPECIMENOrdering Facility: [facility] Address: [address] [place] [address] Performed By: #### 2 4323-8, 3040-3, ####[facility] LABORATORYCLIA [id number] [place] [id number] [facility] [place] Creatinine and Glomerular filtration rate.predicted panel (S/P/Bld) 118 mL/min/1.73m??? Normal >=60 [facility] Comment on above: Order Comment: Roselyn conway Type: BLOOD SPECIMENOrdering Facility: [facility] Address: [address] [place] [address] Result Comment: Shelley mated Glomerular Filtration Rate [...] GFR. Performed By: #### 2 4323-8, 3040-3, 52941-6 ####[facility] LABORATORYCLIA [id number] [place] [id number] [place] Glucose [Mass/Vol] 102 mg/dL High 74-99 [facility] Comment on above: Order Comment: Roselyn men Type: BLOOD SPECIMENOrdering Facility: [facility] Address: [address] [place] [address] Result Comment: The [place] [employer] (ADA) provides guidance for cutoff [...] Standards of Medical Care in Diabetes 2016, [place] [employer]. Diabetes Care. 2016.39(Suppl 1). Performed By: #### 2 4323-8, 3039-3, ####[facility] LABORATORYCLIA [id number] [address] [place], [place] [id number] [place] Potassium [Moles/Vol] 3.8 mmol/L Normal 3.7-5.1 [facility] Comment on above: Order Comment: Roselyn conway Type: BLOOD SPECIMENOrdering Facility: [facility] Address: [address] [place] [address] Performed By: #### 2 4323-8, 3039-08, ####M[facility] LABORATORYCLIA [id number] [place] [id number] [place] Protein [Mass/Vol] 8.2 g/dL High 6.3-8.0 [facility] Comment on above: Order Comment: Roselyn conway Type: BLOOD SPECIMENOrdering Facility: [facility] Address: [address] [place] [address] Performed By: #### 2 4323-8, 3, ####M[facility] LABORATORYCLIA [id number] [place] [id number] [place] Sodium [Moles/Vol] 138 mmol/L Normal 136-144 [facility] Comment on above: Order Comment: Samiai men Type: BLOOD SPECIMENOrdering Facility: [facility] Address: [address] [place] [address] Performed By: #### 2 4323-8, 3, ####M[facility] LABORATORYCLIA [id number] [address] [place], [place] [address] [place] Urea nitrogen [Mass/Vol] 8 mg/dL Normal 7-21 [facility] Comment on above: Order Comment: Speci men Type: BLOOD SPECIMENOrdering Facility: [facility] Address: [place] [address] Performed By: #### 2 4323-8, 3040-3, 92939-0 ####M[facility]LIM LABORATORYCLIA [id number] [address] OF [facility] ECG COMPLETEon 06-22-2023 ECG COMPLETE Ventricular Rate : 105 BPM Atrial Rate : 103 BPM P-R Interval : 152 ms QRS Duration : 77 ms Q-T Interval : 324 ms QTC Calculation(Bazett) : 429 ms Calculated P [place] : 42 degrees Calculated R [place] : 56 degrees Calculated T [place] : 49 degrees Sinus tachycardia Low voltage, precordial leads Anteroseptal infarct, old Abnormal ECG no stemi 1814 Confirmed by MD SEN BRENT ([id number]), editor producer STEPHENIE ERIC ([id number]) on 06/23/2023 12:09:36 PM NAME : LIVIA NOYOLA PID : [id number] : 1985 Gender : Female Race : ORD : [id number] Procedure Date : Jun 22 2023 18:10:13 Edit Date : Jun 23 2023 12:09:40 Diagnosis: Sinus tachycardia Low voltage, precordial leads Anteroseptal infarct, old Abnormal ECG no stemi 1814 Confirmed by MD SEN BRENT ([id number]), editor producer STEPHENIE ERIC (1940) on 06/23/2023 12:09:36 PM Test Reason : Tachycardia Location : 502 : [facility] ED Overread By : MD SEN BRENT Edited By : STEPHENIE ERIC Referred By : , Acquired by : DAVID [facility] ED NOTEon 06-22-2023 ED NOTE HNO ID: [id number] Author: DENNIS CAMARGO RN Service: ? Author Type: Registered Nurse Type: ED Notes Filed: 06/22/2023 21:56 Note Text: Assumed care of pt at this time and received report from previous RN. [facility] ED NOTE HNO ID: [id number] Author: MATILDE DAVIS RN Service: Nursing Author Type: Registered Nurse Type: ED Notes Filed: 06/22/2023 17:38 Note Text: Pt presents with LLQ pain that radiates to back that began this morning but worsened one hour prior to arrival. Denies urinary complaints. [facility] ED PROV NOTEon 06-22-2023 ED PROV NOTE HNO ID: [id number] Author: EVGENY SEN MD Service: Emergency Medicine [...] with some relief. History provided by: Patient editor producer used: No PAST MEDICAL HISTORY Diagnosis Date [...] Hyperlipidemia Father Heart Father bypass surgery, stents, [place] Social History Tobacco Use Smoking status: Never [...] Value Ref Range (more content not included)... [facility] ED Triage Noteon 06-22-2023 ED Triage Note HNO ID: [id number] Author: TABBY LUCIANO PA-C Service: ? Author Type: Physician Hold Worker Type: ED Triage Notes Filed: 06/22/2023 17:43 [...] the treating team. SIGNATURE: Tabby Luciano PA-C [facility] HCG Preg Ur Qlon 06-22-2023 HCG ( test) Ql (U) Negative Normal Negative [facility] Comment on above: Order Comment: Speci men Type: URINE SPECIMENOrdering Facility: [facility] Address: [address] [place] [address], [place] [address] Result Comment: This test is intended to aid in the early detection of . Very dilute urine samples, as indicated by a low specific gravity, may not contain electronics parts sales representative levels of hCG. This test detects [...] for . Performed By: #### 2 106-3 ####MUSLIM LABORATORYCLIA [id number] [place] [id number] [place] Lipase SerPl-cCncon 06-22-19 24 Lipase [Catalytic activity/Vol] 34 U/L Normal 16-61 [facility] Comment on above: Order Comment: Speci men Type: BLOOD SPECIMENOrdering Facility: [facility] Address: [address] [place] [address] Performed By: #### 2 4323-8, 0-3, ####MUSLIM LABORATORYCLIA [id number] [place] [id number] [place] Magnesium SerPl-mCncon 06-22 Magnesium [Mass/Vol] 2.2 mg/dL Normal 1.7-2.3 [facility] Comment on above: Order Comment: Speci men Type: BLOOD SPECIMENOrdering Facility: [facility] Address: [address] [place] [address] Performed By: #### 2 4323-8, 3040-3, ####MUSLIM LABORATORYCLIA [id number] [place] [id number] [place] US DOPPLER COMPLETEon 2023 US DOPPLER COMPLETE * * *Final Report* * * DATE OF EXAM: Jun 22 2023 6:54PM [facility] 1033 - US DOPPLER COMPLETE [...] and stored in a permanent archive. MQ: [facility]_2021 COMPARISON: None RESULT: Uterus: -Size: 8.1 [...] Normal sonographic appearance of the female pelvis. Genetic Technologist: PSCB Transcribe Date/Time: Jun 22 2023 7:44P Dictated by : Vasu BURNS MD This examination was interpreted and the report reviewed and electronically signed by: Vasu BURNS MD on Jun 22 2023 7:48PM EST [id number] [facility] FEMALE PELVIS TRANSABD LT Don 06-22-2023 FEMALE PELVIS TRANSABD LTD * * *Final Report* * * DATE OF EXAM: Jun 22 2023 6:54PM [facility] 1059 - FEMALE PELVIS TRANSABD LTD / [...] and stored in a permanent archive. MQ: _2021 COMPARISON: None RESULT: Uterus: -Size: 8.1 x [...] Normal sonographic appearance of the female pelvis. Genetic Technologist: PSCB Transcribe Date/Time: Jun 22 2023 7:44P Dictated by : Vasu BURNS MD This examination was interpreted and the report reviewed and electronically signed by: Vasu BURNS MD on Jun 22 2023 7:48PM EST [id number] CN [facility] US FEMALE PELVIS TRANSVAGon 06-22-2023 US FEMALE PELVIS TRANSVAG * * *Final Report* * * DATE OF EXAM: Jun 22 2023 6:54PM [facility] 1060 - US FEMALE PELVIS TRANSVAG / [...] and stored in a permanent archive. MQ: [facility]_2021 COMPARISON: None RESULT: Uterus: -Size: 8.1 [...] Normal sonographic appearance of the female pelvis. Genetic Technologist: PSCB Transcribe Date/Time: Jun 22 2023 7:44P Dictated by : Vasu BURNS MD This examination was interpreted and the report reviewed and electronically signed by: Vasu BURNS MD on Jun 22 2023 7:48PM EST [id number] CN Normal [facility] Urinalysis complete panel (U )on 06-22-2023 Bacteria LM.HPF (Urine sed) [#/Area] Few Abnormal None Seen [facility] Comment on above: Order Comment: Speci men Type: URINE SPECIMENOrdering Facility: [facility] Address: [address] [place] [address] Performed By: #### 2 4356-8 ####MUSLIM LABORATORYCLIA [id number] [address] [place] [address] [place] Bilirubin Ql (U) Negative Normal Negative [facility] Comment on above: Order Comment: Speci men Type: URINE SPECIMENOrdering Facility: [facility] Address: [address] [place] [address] Performed By: #### 2 4356-8 ####MUSLIM LABORATORYCLIA [id number] [address] [place] Clarity (Unsp spec) Clear Normal Clear [facility] Comment on above: Order Comment: Speci men Type: URINE SPECIMENOrdering Facility: [facility] Address: [address] [place] [address] Performed By: #### 2 4356-8 ####MUSLIM LABORATORYCLIA [id number] [address] [place] Color (U) Yellow Normal Yellow [facility] Comment on above: Order Comment: Speci men Type: URINE SPECIMENOrdering Facility: [facility] Address: [address] [place] [address] Performed By: #### 2 4356-8 ####MUSLIM LABORATORYCLIA [id number] [address] [place] Epithelial cells LM.HPF (Urine sed) [#/Area] Few Normal [facility] Comment on above: Order Comment: Speci men Type: URINE SPECIMENOrdering Facility: [facility] Address: [address] [place] [address] Performed By: #### 2 4356-8 ####MUSLIM LABORATORYCLIA [id number] [address] [place] [address] [place] Glucose Test strip (U) [Mass/Vol] Negative Normal Negative [facility] Comment on above: Order Comment: Speci men Type: URINE SPECIMENOrdering Facility: [facility] Address: [address] [place] [address] Performed By: #### 2 4356-8 ####MUSLIM LABORATORYCLIA [id number] [address] [place] [address] [place] Hemoglobin Ql (U) Negative Normal Negative [facility] Comment on above: Order Comment: Speci men Type: URINE SPECIMENOrdering Facility: [facility] Address: [address] [place] [address] Performed By: #### 2 4356-8 ####MUSLIM LABORATORYCLIA [id number] [address] [place] [address] [place] Ketones Ql (U) Trace Abnormal Negative [facility] Comment on above: Order Comment: Speci men Type: URINE SPECIMENOrdering Facility: [facility] Address: [address] [place] [address] Performed By: #### 2 4356-8 ####MUSLIM LABORATORYCLIA [id number] [address] [place] Leukocyte esterase Test strip Ql (U) Negative Normal Negative [facility] Comment on above: Order Comment: Speci men Type: URINE SPECIMENOrdering Facility: [facility] Address: [address] [place] [address] Performed By: #### 2 4356-8 ####MUSLIM LABORATORYCLIA [id number] [place] [address] [place] Nitrite Ql (U) Negative Normal Negative [facility] Comment on above: Order Comment: Speci men Type: URINE SPECIMENOrdering Facility: [facility] Address: [address] [place] [address] Performed By: #### 2 4356-8 ####MUSLIM LABORATORYCLIA [id number] [address] [place], [place] [id number] [place] pH (U) 6.5 [pH] Normal 5.0-8.0 [facility] Comment on above: Order Comment: Speci men Type: URINE SPECIMENOrdering Facility: [facility] Address: [address] [place] [address] Performed By: #### 2 4356-8 ####MUSLIM LABORATORYCLIA [id number] [address] [place] [address] [place] Protein (U) [Mass/Vol] Negative Normal Negative [facility] Comment on above: Order Comment: Speci men Type: URINE SPECIMENOrdering Facility: [facility] Address: [address] [place] [address] Performed By: #### 2 4356-8 ####MUSLIM LABORATORYCLIA [id number] [address] [place] [address] [place] RBC LM.HPF (Urine sed) [#/Area] 0-3 /HPF Normal 0-3 /HPF [facility] Comment on above: Order Comment: Speci men Type: URINE SPECIMENOrdering Facility: [facility] Address: [address] [place] [address] Performed By: #### 2 4356-8 ####MUSLIM LABORATORYCLIA [id number] [address] [place] Specific gravity (U) [Rel density] 1.020 Normal 1.005-1.030 [facility] Comment on above: Order Comment: Speci men Type: URINE SPECIMENOrdering Facility: [facility] Address: [address] [place] [address] Performed By: #### 2 4356-8 ####MUSLIM LABORATORYCLIA [id number] [address] [place] Urobilinogen Ql (U) 1.0 EU/dL Normal 0.2-1.0 EU/dL [facility] Comment on above: Order Comment: Speci men Type: URINE SPECIMENOrdering Facility: [facility] Address: [address] [place] [address] Performed By: #### 2 4356-8 ####MUSLIM LABORATORYCLIA [id number] [place] [id number] [place] WBC LM.HPF (Urine sed) [#/Area] 0-5 /HPF Normal 0-5 /HPF [facility] Comment on above: Order Comment: Speci men Type: URINE SPECIMENOrdering Facility: [facility] Address: [address] [place] [address] Performed By: #### 2 4356-8 ####MUSLIM LABORATORYCLIA [id number] [place] [id number] [place] Basic Metabolic Profon 05-30 Anion gap [Moles/Vol] 12 mmol/L Normal 9-17 [facility] Comment on above: Performed By: #### B MP, LIP, LIVP, CDP, HCG #### [facility] [address] [place] [address] [place] Operator: Jennifer Freire MD BUN/CRE Ratio 7 Low 9-20 [facility] Comment on above: Performed By: #### B MP, LIP, LIVP, CDP, HCG #### [facility] [address] [place] [address] Winder Operator: Jennifer Freire MD Calcium [Mass/Vol] 9.8 mg/dL Normal 8.6-10.4 [facility] Comment on above: Performed By: #### B MP, LIP, LIVP, CDP, HCG #### [facility] [address] [place] [address] Winder Operator: Jennifer Freire MD Chloride [Moles/Vol] 99 mmol/L Normal 98-107 [facility] Comment on above: Performed By: #### B MP, LIP, LIVP, CDP, HCG #### [facility] [address] [place] [address] Winder Operator: Jennifer Freire MD CO2 [Moles/Vol] 24 mmol/L Normal 20-31 [facility] Comment on above: Performed By: #### B MP, LIP, LIVP, CDP, HCG #### [facility] [address] [place] [address] Winder Operator: Jennifer Freire MD Creatinine [Mass/Vol] 0.7 mg/dL Normal 0.5-0.9 [facility] Comment on above: Performed By: #### B MP, LIP, LIVP, CDP, HCG #### [facility] [address] [place] [address] Winder Operator: Jennifer Freire MD GFR/1.73 sq M.predicted among non-blacks MDRD (S/P/Bld) [Vol rate/Area] mL/min/{1.73_m2} Normal >60 [facility] Comment on above: Result Comment: These results [...] B MP, LIP, LIVP, CDP, HCG #### [facility] [address] [place] [address] Winder Operator: Jennifer Freire MD Glucose [Mass/Vol] 97 mg/dL Normal 70-99 [facility] Comment on above: Performed By: #### B MP, LIP, LIVP, CDP, HCG #### [facility] [address] [place] [address] Winder Operator: Jennifer Freire MD Potassium [Moles/Vol] 3.9 mmol/L Normal 3.7-5.3 [facility] Comment on above: Performed By: #### B MP, LIP, LIVP, CDP, HCG #### [facility] [address] [place] [address] Winder Operator: Jennifer Freire MD Sodium [Moles/Vol] 135 mmol/L Normal 135-144 [facility] Comment on above: Performed By: #### B MP, LIP, LIVP, CDP, HCG #### [facility] [address] [place] [id number] Winder Operator: Jennifer Freire MD Urea nitrogen [Mass/Vol] 5 mg/dL Low 6-20 [facility] Comment on above: Performed By: #### B MP, LIP, LIVP, CDP, HCG #### [facility] [address] [place] [address] Winder Operator: Jennifer Freire MD CBC with Diffon 05-30-2023 Abs. Basophil 0.02 k/uL Normal 0.00-0.20 [facility] Comment on above: Performed By: #### B MP, LIP, LIVP, CDP, HCG #### [facility] [address] [place] [phone] Winder Operator: Jennifer Freire MD Abs.Imm.Granulocyte 0.00 k/uL Normal 0.00-0.30 [facility] Comment on above: Performed By: #### B MP, LIP, LIVP, CDP, HCG #### [facility] [address] [place] [phone] Winder Operator: Jennifer Freire MD Abs.Neutrophil (Seg) 2.21 k/uL Low 2.5-7.0 [facility] Comment on above: Performed By: #### B MP, LIP, LIVP, CDP, HCG #### [facility] [address] [place] [phone] Winder Operator: Jennifer Freire MD Basophils/100 WBC (Bld) 0 % Normal 0-[address] [facility] Comment on above: Performed By: #### B MP, LIP, LIVP, CDP, HCG #### [facility] [address] [place] [address] Winder Operator: Jennifer Freire MD Eosinophils (Bld) [#/Vol] 0.05 10*3/uL Normal 0.00-0.40 [facility] Comment on above: Performed By: #### B MP, LIP, LIVP, CDP, HCG #### [facility] [address] [place] [phone] Winder Operator: Jennifer Freire MD Eosinophils/100 WBC (Bld) 1 % Normal 0-5 [facility] Comment on above: Performed By: #### B MP, LIP, LIVP, CDP, HCG #### [facility] [address] [place] [phone] Winder Operator: Jennifer Freire MD Erythrocyte distribution width (RBC) [Ratio] 16.5 % High 12.1-15.2 [facility] Comment on above: Performed By: #### B MP, LIP, LIVP, CDP, HCG #### [facility] [address] [place] [phone] Winder Operator: Jennifer Freire MD Hematocrit (Bld) [Volume fraction] 37.2 % Normal 36.0-46.0 [facility] Comment on above: Performed By: #### B MP, LIP, LIVP, CDP, HCG #### [facility] [address] [place] [phone] Winder Operator: Jennifer Freire MD Hemoglobin (Bld) [Mass/Vol] 11.7 g/dL Low 12.0-16.0 [facility] Comment on above: Performed By: #### B MP, LIP, LIVP, CDP, HCG #### [facility] [address] [place] [address] Winder Operator: Jennifer Freire MD Immature granulocytes/100 WBC (Bld) 0 % Normal 0-5 [facility] Comment on above: Performed By: #### B MP, LIP, LIVP, CDP, HCG #### [facility] [address] [place] [address] Winder Operator: Jennifer Freire MD Lymphocytes (Bld) [#/Vol] 2.45 10*3/uL Normal 1.00-4.80 [facility] Comment on above: Performed By: #### B MP, LIP, LIVP, CDP, HCG #### [facility] [address] [place] [address] Winder Operator: Jennifer Freire MD Lymphocytes/100 WBC (Bld) 48 % High 15-40 [facility] Comment on above: Performed By: #### B MP, LIP, LIVP, CDP, HCG #### [facility] [address] [place] [address] Winder Operator: Jennifer Freire MD MCH (RBC) [Entitic mass] 24.2 pg Low 26.0-34.0 [facility] Comment on above: Performed By: #### B MP, LIP, LIVP, CDP, HCG #### [facility] [address] [place] [phone] Winder Operator: Jennifer Freire MD MCHC (RBC) [Mass/Vol] 31.5 g/dL Normal 31.0-37.0 [facility] Comment on above: Performed By: #### B MP, LIP, LIVP, CDP, HCG #### [facility] [address] [place] [phone] Winder Operator: Jennifer Freire MD MCV (RBC) [Entitic vol] 76.9 fL Low 80.0-100.[address] [facility] Comment on above: Performed By: #### B MP, LIP, LIVP, CDP, HCG #### [facility] [address] [place] [address] Winder Operator: Jennifer Freire MD Monocytes (Bld) [#/Vol] 0.37 10*3/uL Normal 0.00-1.00 [facility] Comment on above: Performed By: #### B MP, LIP, LIVP, CDP, HCG #### [facility] [address] [place], [place] [phone] Winder Operator: Jennifer Freire MD Monocytes/100 WBC (Bld) 7 % Normal 4-[address] [facility] Comment on above: Performed By: #### B MP, LIP, LIVP, CDP, HCG #### [facility] [address] [place] [address] Winder Operator: Jennifer Freire MD Neutrophil (Seg) 43 % Low 47-75 [facility] Comment on above: Performed By: #### B MP, LIP, LIVP, CDP, HCG #### [facility] [address] [place] [address] Winder Operator: Jennifer Freire MD Platelet mean volume (Bld) [Entitic vol] 8.7 fL Normal 6.0-12.0 [facility] Comment on above: Performed By: #### B MP, LIP, LIVP, CDP, HCG #### [facility] [address] [place] [address] Winder Operator: Jennifer Freire MD Platelets (Bld) [#/Vol] 512 10*3/uL High 140-450 [facility] Comment on above: Performed By: #### B MP, LIP, LIVP, CDP, HCG #### [facility] [address] [place] [address] Winder Operator: Jennifer Freire MD RBC (Bld) [#/Vol] 4.84 10*6/uL Normal 4.00-5.20 [facility] Comment on above: Performed By: #### B MP, LIP, LIVP, CDP, HCG #### [facility] [address] [facility] [place] [address] Winder Operator: Jennifer Freire MD WBC (Bld) [#/Vol] 5.1 10*3/uL Normal 3.5-11.0 [facility] Comment on above: Performed By: #### B MP, LIP, LIVP, CDP, HCG #### [facility] [address] [place] [address] Winder Operator: Jennifer Freire MD CT ABDOMEN PELVIS [...] Marilyn Narvaez MD 05/30/23 Final result Normal [facility] HCG Screen, Bloodon 05-30-20 HCG Screen, Blood Negative Normal NEG [facility] Comment on above: Result Comment: Spec imens with hCG levels near the threshold of the test (25 mIU/mL) may give a negative or indeterminate result. In such cases, another test should be performed with a new specimen in 48-72 hours. If early is suspected clinically in this setting, correlation with quantitative serum b-hCG level is suggested. [employer] has confirmed the use of plasma for this test. This has not been cleared or approved by the U.S. Food and Drug Administration. The FDA has determined that such clearance is not necessary. Performed By: #### B MP, LIP, LIVP, CDP, HCG #### [facility] [address] [place] [address] Winder Operator: Jennifer Freire MD Lipaseon 05-30-2023 Lipase [Catalytic activity/Vol] 28 U/L Normal 13-60 [facility] Comment on above: Performed By: #### B MP, LIP, LIVP, CDP, HCG #### [facility] [address] [place] [address] Winder Operator: Jennifer Freire MD Liver Profileon 05-30-2023 Albumin [Mass/Vol] 4.3 g/dL Normal 3.5-5.2 [facility] Comment on above: Performed By: #### B MP, LIP, LIVP, CDP, HCG #### [facility] [address] [place] [address] Winder Operator: Jennifer Freire MD Alkaline Phos 86 U/L Normal 35-104 [facility] Comment on above: Performed By: #### B MP, LIP, LIVP, CDP, HCG #### [facility] [address] [place] [address] Winder Operator: Jennifer Freire MD ALT [Catalytic activity/Vol] 14 U/L Normal 5-33 [facility] Comment on above: Performed By: #### B MP, LIP, LIVP, CDP, HCG #### [facility] [address] [place] [address] Winder Operator: Jennifer Freire MD AST [Catalytic activity/Vol] 18 U/L Normal <32 [facility] Comment on above: Performed By: #### B MP, LIP, LIVP, CDP, HCG #### [facility] [address] [place] [address] Winder Operator: Jennifer Freire MD Bilirubin [Mass/Vol] 0.5 mg/dL Normal 0.3-1.2 [facility] Comment on above: Performed By: #### B MP, LIP, LIVP, CDP, HCG #### [facility] [address] [place], [place] [phone] Winder Operator: Jennifer Freire MD Bilirubin, Indirect Can not be calculated Normal 0.0-1.0 [facility] Comment on above: Performed By: #### B MP, LIP, LIVP, CDP, HCG #### [facility] [address] [place], [place] [phone] Winder Operator: Jennifer Freire MD Bilirubin.indirect [Mass/Vol] mg/dL Normal <0.3 [facility] Comment on above: Performed By: #### B MP, LIP, LIVP, CDP, HCG #### [facility] [address] [place] [address] Winder Operator: Jennifer Freire MD Protein [Mass/Vol] 7.9 g/dL Normal 6.4-8.3 [facility] Comment on above: Performed By: #### B MP, LIP, LIVP, CDP, HCG #### [facility] [address] [place], [place] [phone] Winder Operator: Jennifer Freire MD Urinalysis, Routineon 2022 Bilirubin, SemiQt,Ur Negative Normal NEG [facility] Comment on above: Performed By: #### U A #### [facility] [address] [place] [address] Winder Operator: Jennifer Freire MD Blood, Urine Negative Normal NEG [facility] Comment on above: Performed By: #### U A #### [facility] [address] [place] [address] Winder Operator: Jennifer Freire MD Clarity (U) Clear Normal CLEAR [facility] Comment on above: Performed By: #### U A #### [facility] [address] [place], [place] [phone] Winder Operator: Jennifer Freire MD Color (U) Yellow Normal YEL [facility] Comment on above: Performed By: #### U A #### [facility] [address] [place], [place] [phone] Winder Operator: Jennifer Freire MD Comment Normal [facility] Comment on above: Performed By: #### U A #### [facility] [address] [place], [place] [phone] Winder Operator: Jennifer Freire MD Glucose Ql (U) Negative Normal NEG [facility] Comment on above: Performed By: #### U A #### [facility] [address] [place], [place] [phone] Winder Operator: Jennifer Freire MD Ketones Ql (U) Negative Normal NEG [facility] Comment on above: Performed By: #### U A #### [facility] [address] [place], [place] [phone] Winder Operator: Jennifer Freire MD Leukocyte esterase Test strip Ql (U) Negative Normal NEG [facility] Comment on above: Performed By: #### U A #### [facility] [address] [place], [place] [phone] Winder Operator: Jennifer Freire MD Nitrite,Ur Negative Normal NEG [facility] Comment on above: Performed By: #### U A #### [facility] [address] [place] [address] Winder Operator: Jennifer Freire MD PH,Ur 8.0 Normal 5.0-8.0 [facility] Comment on above: Performed By: #### U A #### [facility] [address] [place], [place] [phone] Winder Operator: Jennifer Freire MD Protein Ql (U) Negative Normal NEG [facility] Comment on above: Performed By: #### U A #### [facility] [address] [place] [address] Winder Operator: Jennifer Freire MD Spec. Sumrall,Ur 1.010 Normal 1.005-1.030 [facility] Comment on above: Performed By: #### U A #### [facility] [address] [place] [address] Winder Operator: Jennifer Freire MD Urobilinogen,Ur Normal Normal 0.0-1.0 [facility] Comment on above: Performed By: #### U A #### [facility] [address] [place] [address] Winder Operator: Jennifer Freire MD Discharge Instructionson Discharge Instructions [id number] 120 [id number] #[id number] Normal [facility] ED Clinical Summaryon 2022 ED Clinical Summary [address] [address] ED Clinical Summary Person Information Name: [facility] Age: 38 Years : 1985 Sex: Female [...] Cancel 05/17/2023 21:51:58 05/17/2023 21:51:58 05/17/2023 21:57:35 Complete 05/17/2023 22:01:15 05/17/2023 22:47:18 05/18/2023 00:13:12 Meds Admin Complete 05/18/2023 00:19:12 05/18/2023 00:28:44 Discharge Complete 05/18/2023 00:19:56 05/18/2023 00:57:00 05/18/2023 00:57:00 Transfer Complete 05/18/2023 00:57:00 05/18/2023 00:57:00 05/18/2023 00:57:00 ADDRESS: [address] [place] [id number] PHYS DOC NOTES: MEDICAL INFORMATION: Prescriptions Given: Medications to Continue with No Changes Other Medications alprazolam (alprazolam 0.25 mg Tab) budesonide-formotero l (Symbicort 80/4.5 inhalation aerosol with adapter) citalopram (citalopram 20 mg Tab) By Mouth every day. PATIENT EDUCATION INFORMATION: Instructions: Ovarian Cyst Follow up: With: Address: When: [address], [place] [address], [place] [address] Business (1) In 3 days 05/21/2023 DIAGNOSIS: Bilateral ovarian cysts; Unspecified ovarian cyst, left side Normal [facility] ED Note-Nursingon 05-18-2023 ED Note-Nursing Pt being transported to [place] at this time Normal [facility] ED Note-Physicianon 05-18-20 ED Note-Physician Basic Information Time Seen: Ritesh Heath DOEbenezer 05/17/2023 20:32 Chief Complaint pt reports LLQ [...] and Complexity of Problems Differential Diagnosis: [] [facility] Data External documents reviewed: N/A My [...] of discharge with close follow-up with her BLOCK HANDLER at the 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 We discussed [...] Ino Royal In 3 days 05/21/2023 EST Carmenza ENCISO, JAKE [address] [id number]- [facility] (1) Additional Instructions: Patient Education Ovarian Cyst [...] (05/17/23 21:12 (more content not included)... Normal [facility] Comment on above: Result Comment: Elec [...] Follow these instructions at home: ? Take qgtj-dmb-qeatwef and prescription medicines only as told by [...] provider. Document Revised: 11/06/2020 Document Reviewed: 11/06/2020 [employer] Patient Education ? 2022 [employer]. Normal [facility] ED Patient Summaryon 023 ED Patient Summary [place] [id number] Patient Discharge Instructions Person Information Name: LIVIA NOYOLA Age: 38 Years Arrival Date: 05/17/2023 20:20:39 Discharge Diagnosis: Bilateral ovarian cysts; Unspecified ovarian cyst, left side Primary Care Physician: AILNE, GENERIC Provider Information Primary Provider: Ritesh Heath DO Advanced Electronic Scale Tester:None The exam and treatment you received in the Emergency Department were for an urgent problem and are not intended as complete care. It is important that you follow up with a doctor, nurse practitioner, or physician?s oceanographer assistant for ongoing care. If your symptoms [...] Follow-up Instructions: With: Address: When: Ino Royal Carmenza ENCISO, [facility] [address], [place] [address] Business (1) In 3 days 05/21/2023 In the event that this physician does not participate in your insurance network, please consult with your insurance company to find a nearby participating provider. Patient Education Materials: Ovarian Cyst A MESSAGE TO ALL PATIENTS REGARDING OPIOIDS PRESCRIPTION OPIOIDS: WHAT YOU NEED TO KNOW Prescription opioids can be used to help relieve ysqvodsp-jp-oswywa pain and are often prescribed following a [...] be struggling with addiction, tell your health professional healthcare representative and ask for guidance or call [employer]S National Helpline at 8-932-694-YXYD. (more content not included)... Normal [facility] UA With Cult Reflexon 2022 Bacteria LM Ql (Urine sed) TRACE Normal Trace [facility] Comment on above: Performed By: #### 1 [id number], [id number] ####[facility] [address] [place] [address] Bilirubin Ql (U) Negative Normal Negative [facility] Comment on above: Performed By: #### 1 9856494, [id number] ####[facility] [address] [place] [address] Clarity (U) CLEAR Normal Clear [facility] Comment on above: Performed By: #### 1 7994197, [id number] ####[facility] [address] [place] [address] Color (U) YELLOW Normal Yellow [facility] Comment on above: Performed By: #### 1 5005092, 36345282 ####[address] [address] Epithelial cells.squamous LM.HPF (Urine sed) [#/Area] 3-4 Normal 0-2 [facility] Comment on above: Performed By: #### 1 6654822, 15211685 ####[address] [address] Glucose Test strip (U) [Mass/Vol] Negative Normal Negative [facility] Comment on above: Performed By: #### 1 6565415, 14733525 ####[address] [address] Hemoglobin Ql (U) Negative Normal Negative [facility] Comment on above: Performed By: #### 1 3789948, 51341406 ####[address] [address] Ketones (U) [Mass/Vol] TRACE Invalid Interpretation Code Negative [facility] Comment on above: Performed By: #### 1 9946360, 73051890 ####[address] [address] [place].plasma/[place]. RBC (Bld) [Mass ratio] 0-3 Normal 0-3 [facility] Comment on above: Performed By: #### 1 0694645, 49081705 ####[address] [address] Mucus Ql (Urine sed) 2+ Normal [facility] Comment on above: Performed By: #### 1 9635786, 96634196 ####[address] [address] Nitrite Ql (U) Negative Normal Negative [facility] Comment on above: Performed By: #### 1 9781336, 98582241 ####[address] [address] pH (U) 6.0 [pH] Invalid Interpretation Code 5.0-9.0 [facility] Comment on above: Performed By: #### 1 9359131, 79852657 ####[address] [address] Protein (U) [Mass/Vol] Negative Normal Negative [facility] Comment on above: Performed By: #### 1 1731672, 81567987 ####[address] [address] Specific gravity (U) [Rel density] >=1.030 Invalid Interpretation Code 1.005-1.030 [facility] Comment on above: Performed By: #### 1 8974107, 26580028 ####[address] [address] Type of Urine collection method Clean Catch Normal [facility] Comment on above: Performed By: #### 1 4004955, 70108708 ####[address] [address] Urobilinogen Qn (U) 2.0 {Ivone'U}/dL Abnormal 0.0-1.0 [facility] Comment on above: Performed By: #### 1 6013773, 54276630 ####[address] [address] WBC Auto Ql (U) Negative Normal Negative [facility] Comment on above: Performed By: #### 1 5008554, 08885364 ####[address] [address] WBC LM.HPF (Urine sed) [#/Area] 0-5 Normal 0-5 [facility] Comment on above: Performed By: #### 1 0323832, 08559431 ####[address] [address] US Pelvis Non-OB Completeon 05-18-2023 US Pelvis [...] CARMELINA Technical Comments Transabdominal Ultrasound Performed Normal [facility] Auto Diffon 05-17-2023 Basophils/100 WBC (Bld) 0.4 % Normal 0.0-2.0 [facility] Comment on above: Order Comment: Order Added by Discern Expert. Performed By: #### 1 8923636, 0377759, 7486510, 3256653, 3500327, 76823449, 4851010 ####[facility] [address] [place] [address] Basophils/Leukocytes Auto (Bld) [Pure # fraction] 0.0 E9/L Normal 0.0-0.2 [facility] Comment on above: Order Comment: Order Added by Discern Expert. Performed By: #### 1 8860081, 9254191, 8951775, 2760109, 7359573, 08655794, 1166586 ####[address] [address] Eosinophils/100 WBC (Bld) 0.2 % Normal 0.0-8.0 [facility] Comment on above: Order Comment: Order Added by Discern Expert. Performed By: #### 1 3471126, 8330453, 0255900, 0469218, 0028395, 16988898, 4490044 ####[address] [address] Eosinophils/Leukocytes Auto (Bld) [Pure # fraction] 0.0 E9/L Normal 0.0-0.5 [facility] Comment on above: Order Comment: Order Added by Lis Expert. Performed By: #### 1 2143501, 6089005, 5810295, 6016274, 1190549, 72276895, 1852754 ####[address] [address] Lymphocytes/100 WBC (Bld) 33.4 % Normal 14.0-50.0 [facility] Comment on above: Order Comment: Order Added by Lis Expert. Performed By: #### 1 6305713, 7765311, 3249415, 6318611, 3749826, 18807958, 5968442 ####[address] [address] Lymphocytes/Leukocytes Auto (Bld) [Pure # fraction] 2.8 E9/L Normal 1.0-4.0 [facility] Comment on above: Order Comment: Order Added by Lis Expert. Performed By: #### 1 0373602, 3686850, 1466625, 5916997, 9510355, 14661535, 5963632 ####[address] [address] Monocytes/100 WBC (Bld) 9.1 % Normal 4.0-14.0 [facility] Comment on above: Order Comment: Order Added by Discern Expert. Performed By: #### 1 8204627, 9844249, 3560480, 7768349, 6606811, 14365236, 9576107 ####[facility] [address] [place] [address] Monocytes/Leukocytes Auto (Bld) [Pure # fraction] 0.8 E9/L Normal 0.2-1.0 [facility] Comment on above: Order Comment: Order Added by Discern Expert. Performed By: #### 1 4118859, 4829032, 6997423, 2923965, 1806824, 47632253, 1038852 ####[address] [place] [address] Neutrophils/100 WBC (Bld) 56.9 % Normal 36.0-75.0 [facility] Comment on above: Order Comment: Order Added by Discern Expert. Performed By: #### 1 5087845, 1269158, 1514314, 0256999, 5906954, 79767012, 5498120 ####[facility] [address] [place] [address] Neutrophils/Leukocytes Auto (Bld) [Pure # fraction] 4.8 E9/L Normal 2.0-7.5 [facility] Comment on above: Order Comment: Order Added by Lis Expert. Performed By: #### 1 1454234, 5181681, 7804369, 1115303, 7832903, 99364013, 3694014 ####[facility] [address] [place] [address] BMPon 05-17-2023 Creatinine [Mass/Vol] 0.8 mg/dL Normal 0.5-1.3 [facility] Comment on above: Performed By: #### 1 4094600, 5854274, 8872501, 5590507, 9865713, 89552626, 0131508 ####[facility] [address] [place] [address] Urea nitrogen [Mass/Vol] 5 mg/dL Normal 5-21 [facility] Comment on above: Performed By: #### 1 4643896, 2393065, 3554138, 0304499, 8800168, 00813873, 8969889 ####[facility] [address] [place] [address] Urea nitrogen/Creatinine [Mass ratio] 6 No Units Low 10-20 [facility] Comment on above: Performed By: #### 1 8081157, 3459914, 1907088, 0398829, 5608344, 18065069, 1718771 ####[facility] [address] [place] [address] Anion gap [Moles/Vol] 11 mmol/L Normal 6-16 [facility] Comment on above: Performed By: #### 1 5007192, 1987295, 6724089, 9626147, 1671533, 21620854, 8389889 ####[facility] [address] [place] [address] Calcium [Mass/Vol] 9.3 mg/dL Normal 8.9-11.1 [facility] Comment on above: Performed By: #### 1 4536808, 5086668, 1857909, 0947552, 8350008, 64706336, 2904480 ####[facility] [address] [place] [address] Chloride [Moles/Vol] 109 mmol/L Normal 101-111 [facility] Comment on above: Performed By: #### 1 1615216, 1622001, 5028251, 9506703, 1418475, 75884426, 9275861 ####[facility] [address] [place] [address] CO2 [Moles/Vol] 23 mmol/L Normal 21-31 [facility] Comment on above: Performed By: #### 1 9983218, 6016844, 2219585, 6563929, 1446220, 88111745, 3129598 ####[facility] [address] [place] [address] Glucose [Mass/Vol] 104 mg/dL Normal 55-199 [facility] Comment on above: Result Comment: If t his glucose result represents a fasting glucose, interpretation should refer to the following reference range: 55-99 mg/dL Performed By: #### 1 0297449, 8022736, 3695722, 0438139, 3870993, 38192151, 5570817 ####[facility] [address] [place] [address] Potassium [Moles/Vol] 4.1 mmol/L Normal 3.5-5.3 [facility] Comment on above: Performed By: #### 1 6420852, 0682166, 1747069, 5928401, 0116616, 37936116, 6444418 ####[facility] [address] [place] [address] Sodium [Moles/Vol] 139 mmol/L Normal 135-145 [facility] Comment on above: Performed By: #### 1 6390852, 1528034, 3195512, 6864795, 7147260, 47758916, 7890324 ####[facility] [address] [place] [address] CBC w/ Auto Diffon 3 Erythrocyte distribution width (RBC) [Ratio] 18.7 % High 10.9-14.2 [facility] Comment on above: Performed By: #### 1 0951577, 1515686, 3654449, 0296278, 8794084, 77614102, 9308018 #### [facility] [address] [place] [address] Hematocrit (Bld) [Volume fraction] 37.4 % Normal 34.0-46.0 [facility] Comment on above: Performed By: #### 1 5298556, 3890518, 2687293, 8525063, 1062884, 86250405, 0031968 #### [facility] [address] [place] [address] Hemoglobin (Bld) [Mass/Vol] 11.7 g/dL Low 12.0-16.0 [facility] Comment on above: Performed By: #### 1 5370923, 9841425, 1419197, 5588095, 7564142, 62621678, 0980731 #### [facility] [address] [place] [address] MCH (RBC) [Entitic mass] 24.4 pg Low 27.0-34.0 [facility] Comment on above: Performed By: #### 1 7798274, 3506098, 6142882, 5723327, 7223785, 73936940, 6680903 #### [facility] [address] [place] [address] MCHC (RBC) [Mass/Vol] 31.2 g/dL Low 31.4-36.0 [facility] Comment on above: Performed By: #### 1 9749336, 7084860, 0235504, 6911293, 8880901, 97457277, 7267152 #### [facility] [address] [place] [address] MCV (RBC) [Entitic vol] 78.2 fL Low 80.0-100.0 F [facility] Comment on above: Performed By: #### 1 7152398, 2859066, 6868330, 6024970, 6258451, 10555795, 7168792 #### [facility] [address] [place] [address] Platelet mean volume (Bld) [Entitic vol] 7.8 fL Normal 6.4-10.8 [facility] Comment on above: Performed By: #### 1 7000052, 5433434, 4963547, 2144324, 4026929, 26558274, 5214786 #### [facility] [address] [place] [address] Platelets (Bld) [#/Vol] 469.0 E9/L Normal 150.0-500.0 [facility] Comment on above: Performed By: #### 1 5907918, 9537016, 2643604, 3224896, 8625693, 51848010, 0239615 #### [facility] [address] [place] [address] RBC (Bld) [#/Vol] 4.8 E12/L Normal 4.3-5.9 [facility] Comment on above: Performed By: #### 1 0528206, 1012702, 7073193, 6289406, 2795879, 19440376, 6579678 #### [facility] [address] [place] [address] WBC corrected for nucl RBC Auto (Bld) [#/Vol] 8.5 E9/L Normal 4.0-11.0 [facility] Comment on above: Performed By: #### 1 0439672, 3576377, 1893126, 2055937, 6054494, 33402606, 6642498 #### [facility] [address] [place] [address] Consent for Treatmenton Consent for Treatment [id number] 31 [id number] #1.00TIFF Normal [facility] Hep Func Panelon 05-17-2023 Albumin [Mass/Vol] 4.2 g/dL Normal 3.3-5.0 [facility] Comment on above: Performed By: #### 1 8086305, 4848385, 5862089, 1354660, 3610353, 74653395, 1580583 ####[facility] [address] [place] [address] Albumin/Globulin (S) [Mass conc ratio] 1.2 Normal 1.1-2.2 [facility] Comment on above: Performed By: #### 1 2052212, 0463808, 1453831, 1905659, 8977857, 86278842, 6788095 ####[facility] [address] [place] [address] ALP [Catalytic activity/Vol] 58 Int._Unit/L Normal 21-98 [facility] Comment on above: Performed By: #### 1 9435748, 2092339, 5519826, 2646708, 5368816, 80886543, 8573142 ####[facility] [address] [place] [address] ALT No additional P-5'-P [Catalytic activity/Vol] 14 Int._Unit/L Normal 6-46 [facility] Comment on above: Performed By: #### 1 8726101, 8218005, 7844579, 9683300, 4987432, 48931638, 8940229 ####[facility] [address] [place] [address] AST [Catalytic activity/Vol] 21 Int._Unit/L Normal 5-43 [facility] Comment on above: Performed By: #### 1 8171791, 0555953, 2360727, 8154480, 0665164, 57729772, 1236583 ####[address] [place] [address] Bilirubin [Mass/Vol] 0.6 mg/dL Normal 0.0-1.1 [facility] Comment on above: Performed By: #### 1 3988621, 4384928, 2672394, 8518666, 9213081, 02657764, 7086680 ####[place] [address] Bilirubin.direct [Mass/Vol] 0.1 mg/dL Normal 0.1-0.4 [facility] Comment on above: Performed By: #### 1 7170466, 5979846, 2890956, 5846339, 8934769, 67236959, 9035958 ####[address] [address] Bilirubin.indirect [Mass or moles/Vol] 0.5 mg/dL Normal 0.1-0.9 [facility] Comment on above: Performed By: #### 1 8207045, 2061077, 2358228, 9252613, 5656115, 27193634, 4463524 ####[address] [place] [address] Globulin (S) [Mass/Vol] 3.6 g/dL Normal 1.4-4.0 [facility] Comment on above: Performed By: #### 1 6130147, 9017388, 9533591, 9705016, 6924384, 34386599, 6197004 ####[facility] [address] [place] [address] Protein [Mass/Vol] 7.8 g/dL Normal 6.0-7.8 [facility] Comment on above: Performed By: #### 1 5002046, 5528460, 8534894, 0389621, 6908764, 02270880, 3791318 ####[facility] [address] [place] [address] Lipase Levelon 05-17-2023 Lipase [Catalytic activity/Vol] 57 U/L Normal 13-58 [facility] Comment on above: Performed By: #### 1 6503657, 8813368, 8492751, 6732505, 6779765, 49821389, 0170505 #### [facility] [address] [place] [address] Morphon 05-17-2023 Anisocytosis Ql (Bld) Present Normal [facility] Comment on above: Order Comment: Order Added by Discern Expert. Performed By: #### 1 3274520, 9411006, 5640453, 9486951, 5991595, 83328014, 1053582 #### [facility] [address] [place] [address] Hypochromia Auto Ql (Bld) Present Normal [facility] Comment on above: Order Comment: Order Added by Discern Expert. Performed By: #### 1 3536555, 4947253, 8779573, 2541527, 4155354, 29025680, 4597762 #### [facility] [address] [place] [address] Microcytes Ql (Bld) Present Normal [facility] Comment on above: Order Comment: Order Added by Discern Expert. Performed By: #### 1 0188285, 0771788, 7381930, 4319395, 1554811, 25802368, 8980600 #### [facility] [address] [place] [address] Morphology Edson (Bld) [Interp] See Morphology Normal [facility] Comment on above: Order Comment: Order Added by Discern Expert. Performed By: #### 1 3134489, 1470664, 1058702, 4635752, 7249032, 65981225, 7886149 #### [facility] [address] [place] [address] Ovalocytes LM Ql (Bld) Present Normal [facility] Comment on above: Order Comment: Order Added by Discern Expert. Performed By: #### 1 5601116, 3949841, 8640775, 2277782, 6971431, 15690511, 0148778 #### [facility] [address] [place] [address] U BetaHcg Qualon 05-17-2023 HCG.beta subunit (U) [Moles/Vol] Negative Normal [facility] Comment on above: Performed By: #### 1 1064396, 93932129 ####[facility] [address] [place] [address] eGFRon 05-17-2023 GFR/1.73 sq M.predicted among non-blacks MDRD (S/P/Bld) [Vol rate/Area] 98 mL/min/1.73 m2 Normal >=59 [facility] Comment on above: Order Comment: Order added by Discern Expert. Result Comment: Director Of Orthopedics franklin kidney disease could be indicated at eGFR's of less than 60 mL/min/1.73m2. Kidney failure is indicated at less than 15 mL/min/1.73m2. Performed By: #### 1 3978616, 3942849, 4938467, 8310257, 7552550, 27065424, 6995554 ####[facility] [address] [place] [address] Alanine aminotransferase [En zymatic activity/volume] in Serum or PlasmaOrdered By: Elier Jackson on 04-30-2023 ALT [Catalytic activity/Vol] 15 U/L Normal 752 [facility] Comment on above: Performed By: #### H CGQNT #### [facility] [address] Albumin [Mass/volume] in Ser um or Plasma by Bromocresol green (BCG) dye binding methoOrdered By: Elier Manuel on 04-30-2023 Albumin BCG dye [Mass/Vol] 4.3 g/dL 3.5-5.7 [facility] Alkaline phosphatase [Enzyma tic activity/volume] in Serum or PlasmaOrdered By: Elier Manuel on 04-30-2023 ALP [Catalytic activity/Vol] 68 U/L Normal 34-104 [facility] Comment on above: Performed By: #### H CGQNT #### [address] Aspartate aminotransferase [ Enzymatic activity/volume] in Serum or PlasmaOrdered By: Elier Jackson on 04-30-2023 AST [Catalytic activity/Vol] 17 U/L Normal 13-39 [facility] Comment on above: Performed By: #### H CGQNT #### [address] Automated basophil %Ordered By: Elier Jackson on 04-30-2023 Basophils/100 WBC (Bld) 1.3 % Normal . [facility] Comment on above: Performed By: #### H CGQNT #### [address] Automated basophil countOrde red By: Elier Jackson on 04-30-2023 Basophils (Bld) [#/Vol] 0.0 10*3/uL Normal 0.0-0.2 [facility] Comment on above: Result Comment: PERF ORMED BY: [place] [address] PATHOLOGIST [employer] FARNAZ ZULETA M.D. Performed By: #### H CGQNT #### [address] Automated blood monocyte cou ntOrdered By: Elier Jackson on 04-30-2023 Monocytes (Bld) [#/Vol] 0.3 10*3/uL Normal 0.0-0.8 [facility] Comment on above: Performed By: #### H CGQNT #### [facility] [address] [place] [address] Automated eosinophil %Ordere d By: Elier Velásquezjulian on 04-30-2023 Eosinophils/100 WBC (Bld) 0.6 % Normal . [facility] Comment on above: Performed By: #### H CGQNT #### [address] Automated eosinophil countOr dered By: Elier Velásquezjulian on 04-30-2023 Eosinophils (Bld) [#/Vol] 0.0 10*3/uL Normal 0.0-0.45 [facility] Comment on above: Performed By: #### H CGQNT #### [address] Automated erythrocytes count in urine sediment (number/area)Ordered By: Elier Velásquezjulian on 04-30-2023 RBC Auto (Urine sed) [#/Area] 5-9 [HPF] 0-4 [facility] Automated leukocytes count i n urine sediment (number/area)Ordered By: Elier Velásquezjulian on 04-30-2023 WBC Auto (Urine sed) [#/Area] 0-1 [HPF] 0-4 [facility] Automated monocyte %Ordered By: Elier Velásquezjulian on 04-30-2023 Monocytes/100 WBC (Bld) 7.0 % Normal . [facility] Comment on above: Performed By: #### H CGQNT #### [address] Automated neutrophil %Ordere d By: Elier Velásquezjulian on 04-30-2023 Neutrophils/100 WBC (Bld) 46.9 % Normal . [facility] Comment on above: Performed By: #### H CGQNT #### [address] Automated urine color determ inationOrdered By: Elier Velásquezjulian on 04-30-2023 Color (U) Yellow Normal Yellow [facility] Comment on above: Order Comment: Name Collection Type:: Clean-Voided Midstream Performed By: #### U HCG, ADDONUAPLUS #### [address] [place] [address] [place] Basic Metabolic Panelon 04-13 Creatinine Clr Calc Pharmacy 107.67 Normal [facility] Comment on above: Performed By: #### H CGQNT #### [address] GFR/1.73 sq M.predicted MDRD (S/P/Bld) [Vol rate/Area] mL/min/{1.73_m2} Normal [facility] Comment on above: Performed By: #### H CGQNT #### [address] Bilirubin Test strip Ql (U)O rdered By: Elier Jackson on 04-30-2023 Bilirubin Ql (U) Negative Negative [facility] Bilirubin.direct [Mass/volum e] in Serum or PlasmaOrdered By: Elier Jackson on 04-30-2023 Bilirubin.direct [Mass/Vol] 0.10 mg/dL 0.03-0.18 [facility] Bilirubin.total [Mass/volume ] in Serum or PlasmaOrdered By: Elier Jackson on 04-30-2023 Bilirubin [Mass/Vol] 0.4 mg/dL Normal 0.3-1.0 [facility] Comment on above: Performed By: #### H CGQNT #### [address] Calcium [Mass/volume] in Ser um or PlasmaOrdered By: Elier Jackson on 04-30-2023 Calcium [Mass/Vol] 9.2 mg/dL Normal 8.6-10.3 [facility] Comment on above: Performed By: #### H CGQNT #### [address] Carbon dioxide, total [Moles /volume] in Serum or PlasmaOrdered By: Elier Jackson on 04-30-2023 CO2 [Moles/Vol] 20.1 mmol/L Low 21.0-31.0 [facility] Comment on above: Performed By: #### H CGQNT #### [place] [id number] [place] Chloride [Moles/volume] in S binu or PlasmaOrdered By: Elier Jackson on 04-30-2023 Chloride [Moles/Vol] 109 mmol/L High 98-107 [facility] Comment on above: Performed By: #### H CGQNT #### [address] Complete Blood Count Auto Di ffon 04-30-2023 Mean Corpuscular HGB Conc 34.7 g/dL Normal 32.0-35.0 [facility] Comment on above: Performed By: #### H CGQNT #### [address] Monocytes/100 WBC (Bld) 16.58 % Normal 0.00-20.00 [facility] Comment on above: Performed By: #### H CGQNT #### [address] NRBC% 0.1 /100{WBC} Normal 0-0.5 [facility] Comment on above: Performed By: #### H CGQNT #### [address] Creatinine [Mass/volume] in Serum or PlasmaOrdered By: Elier Jackson on 04-30-2023 Creatinine [Mass/Vol] 0.65 mg/dL Normal 0.60-1.20 [facility] Comment on above: Performed By: #### H CGQNT #### [address] Dipstick and Microscopicon 1 06-30-2022 Appearance (U) Clear Normal Clear [facility] Comment on above: Order Comment: Name Collection Type:: Clean-Voided Midstream Performed By: #### U HCG, ADDONUAPLUS #### [address] Bacteria,Urine None Seen Normal None Seen [facility] Comment on above: Order Comment: Name Collection Type:: Clean-Voided Midstream Performed By: #### U HCG, ADDONUAPLUS #### [facility] [address] [place] [address] [place] Bilirubin,Urine Negative Normal Negative [facility] Comment on above: Order Comment: Name Collection Type:: Clean-Voided Midstream Performed By: #### U HCG, ADDONUAPLUS #### [facility] [address] Glucose Ql (U) Normal Normal Normal [facility] Comment on above: Order Comment: Name Collection Type:: Clean-Voided Midstream Performed By: #### U HCG, ADDONUAPLUS #### [facility] [address] [place] [address] [place] Hyaline Casts,Urine 0-8 Normal 0-8 [facility] Comment on above: Order Comment: Name Collection Type:: Clean-Voided Midstream Performed By: #### U HCG, ADDONUAPLUS #### [address] Ketones Ql (U) Negative Normal Negative [facility] Comment on above: Order Comment: Name Collection Type:: Clean-Voided Midstream Performed By: #### U HCG, ADDONUAPLUS #### [place] [address] [place] Leukocyte esterase Test strip Ql (U) Negative Normal Negative [facility] Comment on above: Order Comment: Name Collection Type:: Clean-Voided Midstream Performed By: #### U HCG, ADDONUAPLUS #### [place] [address] [place] Nitrite,Urine Negative Normal Negative [facility] Comment on above: Order Comment: Name Collection Type:: Clean-Voided Midstream Performed By: #### U HCG, ADDONUAPLUS #### [place] [address] [place] Occult Blood,Urine 2+ High Negative [facility] Comment on above: Order Comment: Name Collection Type:: Clean-Voided Midstream Performed By: #### U HCG, ADDONUAPLUS #### [place] [address] [place] Protein,Urine Negative Normal Negative [facility] Comment on above: Order Comment: Name Collection Type:: Clean-Voided Midstream Performed By: #### U HCG, ADDONUAPLUS #### [address] RBC,Urine 5-9 High 0-4 [facility] Comment on above: Order Comment: Name Collection Type:: Clean-Voided Midstream Performed By: #### U HCG, ADDONUAPLUS #### [address] Specificy [place],Urine 1.018 Normal 1.001-1.030 [facility] Comment on above: Order Comment: Name Collection Type:: Clean-Voided Midstream Performed By: #### U HCG, ADDONUAPLUS #### [address] Squamous Epithelial Cell,Urine 0-1 Normal 0-2 [facility] Comment on above: Order Comment: Name Collection Type:: Clean-Voided Midstream Performed By: #### U HCG, ADDONUAPLUS #### [address] Urobilinogen,Urine Normal Normal Normal [facility] Comment on above: Order Comment: Name Collection Type:: Clean-Voided Midstream Performed By: #### U HCG, ADDONUAPLUS #### [address] WBC LM.HPF (Urine sed) [#/Area] 0 /[HPF] Normal 0-4 [facility] Comment on above: Order Comment: Name Collection Type:: Clean-Voided Midstream Performed By: #### U HCG, ADDONUAPLUS #### [address] Erythrocyte distribution wid th [Ratio] by Automated countOrdered By: Elier Jackson on 04-30-2023 Erythrocyte distribution width (RBC) [Ratio] 16.8 % High 11.9-15.3 [facility] Comment on above: Performed By: #### H CGQNT #### [address] Erythrocytes [#/volume] in B lood by Automated countOrdered By: Elier Jackson on 04-30-2023 RBC (Bld) [#/Vol] 3.68 10*6/uL Normal 3.60-5.00 [facility] Comment on above: Performed By: #### H CGQNT #### [facility] [address] [place] [address] [place] Glucose [Mass/volume] in Ser um or PlasmaOrdered By: Elier Jackson on 04-30-2023 Glucose [Mass/Vol] 100 mg/dL Normal 70-100 [facility] Comment on above: ADA recommended refe rence rangeRandom Glucose Reference Range is dependent on time and content of last meal. Glucose of more than 200 mg/dL in a nonstressed, ambulatory subject supports the diagnosis of Diabetes Mellitus. Result Comment: [place] om Glucose Reference Range is dependent on time and content of last meal. Glucose of more than 200 mg/dL in a nonstressed, ambulatory subject supports the diagnosis of Diabetes Mellitus. ADA recommended reference range Performed By: #### H CGQNT #### [address] HCG ( test) IA.rapi d Ql (U)Ordered By: Elier Jackson on 04-30-2023 HCG ( test) Ql (U) Negative [facility] HCG,Urineon 04-30-2023 Beta HCG ( test) Ql (U) Negative Normal [facility] Comment on above: Order Comment: Name Collection Type:: Clean-Voided Midstream Result Comment: PERF ORMED BY: [place] [address] PATHOLOGIST [employer] FARNAZ ZULETA M.D. Performed By: #### U HCG, ADDONUAPLUS #### [address] Hematocrit [Volume Fraction] of Blood by Automated countOrdered By: Elier Jackson on 04-30-2023 Hematocrit (Bld) [Volume fraction] 32.3 % Low 34.0-46.4 [facility] Comment on above: Performed By: #### H CGQNT #### [facility] [address] [place] [address] Hemoglobin [Mass/volume] in BloodOrdered By: Elier Jackson on 04-30-2023 Hemoglobin (Bld) [Mass/Vol] 11.2 g/dL Low 11.8-15.4 [facility] Comment on above: Performed By: #### H CGQNT #### [address] Hepatic Panelon 04-30-2023 Albumin [Mass/Vol] 4.3 g/dL Normal 3.5-5.7 [facility] Comment on above: Performed By: #### H CGQNT #### [address] Bilirubin,Indirect 0.3 mg/dL Normal [facility] Comment on above: Performed By: #### H CGQNT #### [address] Bilirubin.indirect [Mass/Vol] 0.10 mg/dL Normal 0.03-0.18 [facility] Comment on above: Performed By: #### H CGQNT #### [address] Ketones Auto test strip (U) [Mass/Vol]Ordered By: Elier Jackson on 04-30-2023 Ketones (U) [Mass/Vol] Negative Negative [facility] - UrinalysisOrder ed By: Elier Jackson on 04-30-2023 Hyaline casts LM Ql (Urine sed) 0-8 [LPF] 0-8 [facility] Leukocytes [#/volume] correc flo for nucleated erythrocytes in Blood by Automated counOrdered By: Eleir Jackson on 04-30-2023 WBC corrected for nucl RBC Auto (Bld) [#/Vol] 3.6 10*3/uL 3.8-11.6 [facility] Leukocytes [#/volume] in Blo od by Automated countOrdered By: Elier Jackson on 04-30-2023 WBC (Bld) [#/Vol] 3.6 10*3/uL Low 3.8-11.6 [facility] Comment on above: Performed By: #### H CGQNT #### [address] Lipase [Enzymatic activity/v olume] in Serum or PlasmaOrdered By: Elier Jackson on 04-30-2023 Lipase [Catalytic activity/Vol] 31.0 U/L Normal 11.0-82.0 [facility] Comment on above: Result Comment: PERF ORMED BY: [place] [address] PATHOLOGIST [employer] FARNAZ ZULETA M.D. Performed By: #### H CGQNT #### [place] [address] [place] Lymphocytes [#/volume] in Bl ood by Automated countOrdered By: Elier Jackson on 04-30-2023 Lymphocytes (Bld) [#/Vol] 1.6 10*3/uL Normal 1.00-4.8 [facility] Comment on above: Performed By: #### H CGQNT #### [address] Lymphocytes/100 leukocytes i n Blood by Automated countOrdered By: Elier Jackson on 04-30-2023 Lymphocytes/100 WBC (Bld) 44.2 % Normal . [facility] Comment on above: Performed By: #### H CGQNT #### [place] [address] [place] MCH [Entitic mass] by Automa flo countOrdered By: Elier Jackson on 04-30-2023 MCH (RBC) [Entitic mass] 30.4 pg Normal 24.7-34.3 [facility] Comment on above: Performed By: #### H CGQNT #### [address] MCHC Auto (RBC) [Mass/Vol]Or dered By: Elier Jackson on 04-30-2023 MCHC (RBC) [Mass/Vol] 34.7 g/dL 32.0-35.0 [facility] MCV [Entitic volume] by Auto mated countOrdered By: Elier Jackson on 04-30-2023 MCV (RBC) [Entitic vol] 87.6 fL Normal 80-100 [facility] Comment on above: Performed By: #### H CGQNT #### [facility] [address] Monocyte distribution width [Entitic volume] in Blood by AutomatedOrdered By: Elier Jackson on 04-30-2023 Monocyte distribution width Auto (Bld) [Entitic vol] 16.58 % 0.00-20.00 [facility] Neutrophils [#/volume] in Bl ood by Automated countOrdered By: Elier Jackson on 04-30-2023 Neutrophils (Bld) [#/Vol] 1.7 10*3/uL Low 1.8-7.7 [facility] Comment on above: Performed By: #### H CGQNT #### [address] Nitrite Test strip Ql (U)Ord ered By: Elier Jackson on 04-30-2023 Nitrite Ql (U) Negative Negative [facility] No Panel InformationOrdered By: Elier Jackson on 04-30-2023 Estimated GFR (CKD-EPI) > 60.0 mL/Min [facility] Creatinine Clearance (Chem 107.67 [facility] Nucleated erythrocytes [Pres ence] in Blood by Automated countOrdered By: Elier Jackson on 04-30-2023 Nucleated RBC Auto Ql (Bld) 0.1 /100{WBC} 0-0.5 [facility] Platelet mean volume [Entiti c volume] in Blood by Automated countOrdered By: Elier Jackson on 04-30-2023 Platelet mean volume (Bld) [Entitic vol] 8.0 fL Normal 6.3-10.7 [facility] Comment on above: Performed By: #### H CGQNT #### [facility] [address] [place] [address] Platelets [#/volume] in Bloo d by Automated countOrdered By: Elier Jackson on 04-30-2023 Platelets (Bld) [#/Vol] 415 10*3/uL Normal 150-450 [facility] Comment on above: Performed By: #### H CGQNT #### [address] Potassium [Moles/volume] in Serum or PlasmaOrdered By: Elier Jackson on 04-30-2023 Potassium [Moles/Vol] 3.8 mmol/L Normal 3.5-5.1 [facility] Comment on above: Performed By: #### H CGQNT #### [address] Protein Auto test strip (U) [Mass/Vol]Ordered By: Elier Jackson on 04-30-2023 Protein (U) [Mass/Vol] Negative Negative [facility] Protein [Mass/volume] in Ser um or PlasmaOrdered By: Elier Jackson on 04-30-2023 Protein [Mass/Vol] 7.6 g/dL Normal 6.4-8.9 [facility] Comment on above: Performed By: #### H CGQNT #### [address] Serum globulin measurement b y calculation (mass/volume)Ordered By: Elier Jackson on 04-30-2023 Globulin (S) [Mass/Vol] 3.3 g/dL Normal [facility] Comment on above: Performed By: #### H CGQNT #### [facility] [address] [place] [address] Serum or plasma albumin/glob ulin mass ratioOrdered By: Elier Jackson on 04-30-2023 Albumin/Globulin [Mass ratio] 1.3 {ratio} Normal [facility] Comment on above: Performed By: #### H CGQNT #### [address] Serum or plasma anion gap de terminationOrdered By: Elier Jackson on 04-30-2023 Anion gap [Moles/Vol] 14.7 mmol/L Normal 6.0-15.0 [facility] Comment on above: Performed By: #### H CGQNT #### [facility] [address] [place] [address] Serum or plasma non-glucuron idated bilirubin measurement (mass/volume)Ordered By: Elier Jackson on 04-30-2023 Bilirubin.indirect [Mass/Vol] 0.3 mg/dL [facility] Sodium [Moles/volume] in Ser um or PlasmaOrdered By: Elier Jackson on 04-30-2023 Sodium [Moles/Vol] 140 mmol/L Normal 136-145 [facility] Comment on above: Performed By: #### H CGQNT #### [facility] [address] [place] [address] Specific gravity Auto test s trip (U) [Rel density]Ordered By: Elier Jackson on 04-30-2023 Specific gravity (U) [Rel density] 1.018 1.001-1.030 [facility] Squamous epithelial cells de tection in urine sediment by light microscopyOrdered By: Elier Jackson on 04-30-2023 Epithelial cells.squamous LM Ql (Urine sed) 0-1 [HPF] 0-2 [facility] US pelvic completeon 023 US pelvic complete [facility] [place] [address] [place] [address] Ultrasound Report Signed Patient: Livia Noyola MR#: [id number] : 1985 Acct:[id number] Age/Sex: 38 / F ADM Date: 04/30/23 Loc: ER Room: Type: [facility] ER Attending Dr: Ordering Provider: Elier Jackson DO Date of Service: 04/30/23 US/US pelvic complete: L pelvic pain ([id number]) US/US transvaginal: LT PELVIC PAIN Copies to: [...] torsion. Impression dictated by: Dennis Betancur Jr., D.O.04/30/2023 6:24 PM Dictation Location: [place] [address] Tech: Brooke Hodge Transcribed By: AMBER 04/30/231823 Dictated By: Dennis Betancur Jr, DO 04/30/231820 Signed By: 04/30/231823 Normal [facility] Urea nitrogen [Mass/volume] in Serum or PlasmaOrdered By: Elier Jackson on 04-30-2023 Urea nitrogen [Mass/Vol] 6 mg/dL Low 7-25 [facility] Comment on above: Performed By: #### H CGQNT #### [facility] [address] [place] [address] Urine bacteria detection by automated methodOrdered By: Elier Jackson on 04-30-2023 Bacteria Auto Ql (U) None seen None Seen [facility] Urine clarity by refractomet ry automatedOrdered By: Elier Jackson on 04-30-2023 Clarity Refractometry automated (U) Clear Clear [facility] Urine glucose measurement by automated test strip (mass/volume)Ordered By: Elier Jackson on 04-30-2023 Glucose Auto test strip (U) [Mass/Vol] Normal mg/dL Normal [facility] Urine hemoglobin detection b y automated test stripOrdered By: Elier Jackson on 04-30-2023 Hemoglobin Auto test strip Ql (U) 2+ Negative [facility] Urine leukocyte esterase det ection by automated test stripOrdered By: Elier Jackson on 04-30-2023 Leukocyte esterase Auto test strip Ql (U) Negative Negative [facility] Urine pH measurement by auto mated test stripOrdered By: Elier Jackson on 04-30-2023 pH (U) 5.5 [pH] Normal 5.0-9.0 [facility] Comment on above: Order Comment: Name Collection Type:: Clean-Voided Midstream Performed By: #### U HCG, ADDONUAPLUS #### [facility] [address] Urobilinogen Auto test strip (U) [Mass/Vol]Ordered By: Elier Jackson on 04-30-2023 Urobilinogen (U) [Mass/Vol] Normal mg/dL Normal [facility] Auto Diffon 04-24-2023 Basophils/100 WBC (Bld) 0.3 % Normal 0.0-2.0 [facility] Comment on above: Order Comment: Order Added by Discern Expert. Performed By: #### 2 382455, 2948807, 3665522, [id number], [id number] #### [facility] [address] [place] [address] Basophils/Leukocytes Auto (Bld) [Pure # fraction] 0.0 E9/L Normal 0.0-0.2 [facility] Comment on above: Order Comment: Order Added by Discern Expert. Performed By: #### 2 242657, 3307865, 9928845, 06071275, [id number] #### [facility] [address] [place] [address] Eosinophils/100 WBC (Bld) 0.9 % Normal 0.0-8.0 [facility] Comment on above: Order Comment: Order Added by Discern Expert. Performed By: #### 2 324378, 8382068, 4126507, 33736179, [id number] #### [facility] [address] [place] [address] Eosinophils/Leukocytes Auto (Bld) [Pure # fraction] 0.0 E9/L Normal 0.0-0.5 [facility] Comment on above: Order Comment: Order Added by Discern Expert. Performed By: #### 2 185144, 4921750, 4468236, 82935946, 94684180 #### [facility] [address] [place] [address] Lymphocytes/100 WBC (Bld) 49.9 % Normal 14.0-50.0 [facility] Comment on above: Order Comment: Order Added by Discern Expert. Performed By: #### 2 423248, 7081279, 9638919, 77030751, 82039629 #### [facility] [address] [place] [address] Lymphocytes/Leukocytes Auto (Bld) [Pure # fraction] 2.3 E9/L Normal 1.0-4.0 [facility] Comment on above: Order Comment: Order Added by Discern Expert. Performed By: #### 2 049478, 1120754, 8141840, 36275162, 17721735 #### [facility] [address] [place] [address] Monocytes/100 WBC (Bld) 7.1 % Normal 4.0-14.0 [facility] Comment on above: Order Comment: Order Added by Discern Expert. Performed By: #### 2 673884, 6054729, 7377713, 03823876, 68722037 #### [facility] [address] [place] [address] Monocytes/Leukocytes Auto (Bld) [Pure # fraction] 0.3 E9/L Normal 0.2-1.0 [facility] Comment on above: Order Comment: Order Added by Discern Expert. Performed By: #### 2 149100, 9147895, 7731441, 17925076, [id number] #### [facility] [address] [place] [address] Neutrophils/100 WBC (Bld) 41.8 % Normal 36.0-75.0 [facility] Comment on above: Order Comment: Order Added by Discern Expert. Performed By: #### 2 895243, 6426457, 7527687, 75011396, 13081652 #### [facility] [address] [place] [address] Neutrophils/Leukocytes Auto (Bld) [Pure # fraction] 2.0 E9/L Normal 2.0-7.5 [facility] Comment on above: Order Comment: Order Added by Discern Expert. Performed By: #### 2 349065, 7044248, 0572963, 17830677, 48431660 #### [facility] [address] [place] [address] B hCG Qualon 04-24-2023 Beta HCG ( test) Ql Negative Normal [facility] Comment on above: Performed By: #### 2 136908, 0791307, 0914676, 05686771, 30480759 #### [facility] [address] [place] [address] BMPon 04-24-2023 Creatinine [Mass/Vol] 0.7 mg/dL Normal 0.5-1.3 [facility] Comment on above: Performed By: #### 2 397099, 1779360, 3116405, 72255233, 46529621 #### [facility] [address] [place] [address] Urea nitrogen [Mass/Vol] 6 mg/dL Normal 5-21 [facility] Comment on above: Performed By: #### 2 415738, 6545502, 9067347, 60823244, 67113260 #### [facility] [address] [place] [address] Urea nitrogen/Creatinine [Mass ratio] 9 No Units Low 10-20 [facility] Comment on above: Performed By: #### 2 862269, 0041882, 6475869, 25411926, 05570390 #### [facility] [address] [place] [address] Anion gap [Moles/Vol] 14 mmol/L Normal 6-16 [facility] Comment on above: Performed By: #### 2 804468, 1253468, 1221065, 47550915, 01764890 #### [facility] [address] [place] [address] Calcium [Mass/Vol] 9.4 mg/dL Normal 8.9-11.1 [facility] Comment on above: Performed By: #### 2 599190, 7226226, 1645262, 74051668, 73830169 #### [facility] [address] [place] [address] Chloride [Moles/Vol] 105 mmol/L Normal 101-[address] [facility] Comment on above: Performed By: #### 2 351023, 2274175, 5370606, 86452933, 47362914 #### [facility] [address] [place] [address] CO2 [Moles/Vol] 23 mmol/L Normal 21-31 [facility] Comment on above: Performed By: #### 2 255953, 5192060, 6056924, 43905186, 54426693 #### [facility] [address] [place] [address] Glucose [Mass/Vol] 95 mg/dL Normal 55-199 [facility] Comment on above: Result Comment: If t his glucose result represents a fasting glucose, interpretation should refer to the following reference range: 55-99 mg/dL Performed By: #### 2 481354, 7786678, 0534197, 80117880, 28684857 #### [facility] [address] [place] [address] Potassium [Moles/Vol] 3.8 mmol/L Normal 3.5-5.3 [facility] Comment on above: Performed By: #### 2 276067, 4088584, 6366465, 16446280, 17817508 #### [facility] [address] [place] [address] Sodium [Moles/Vol] 138 mmol/L Normal 135-145 [facility] Comment on above: Performed By: #### 2 080184, 3097809, 1984574, 82873751, 48633175 #### [facility] [address] [place] [address] CBC w/ Auto Diffon 3 Erythrocyte distribution width (RBC) [Ratio] 15.9 % High 10.9-14.2 [facility] Comment on above: Performed By: #### 2 057452, 6843517, 4156120, 66433709, 08438447 #### [facility] [address] [place] [address] Hematocrit (Bld) [Volume fraction] 33.7 % Low 34.0-46.0 [facility] Comment on above: Performed By: #### 2 427866, 5968678, 1322870, 77162111, 01590511 #### [facility] [address] [place] [address] Hemoglobin (Bld) [Mass/Vol] 11.7 g/dL Low 12.0-16.0 [facility] Comment on above: Performed By: #### 2 685940, 4852008, 1713345, 35107518, 43647221 #### [facility] [address] [place] [address] MCH (RBC) [Entitic mass] 29.7 pg Normal 27.0-34.0 [facility] Comment on above: Performed By: #### 2 776368, 3087402, 2488440, 03376788, 13054846 #### [facility] [address] [place] [address] MCHC (RBC) [Mass/Vol] 34.7 g/dL Normal 31.4-36.0 [facility] Comment on above: Performed By: #### 2 004632, 4183559, 7570860, 74564963, 42834734 #### [facility] [address] [place] [address] MCV (RBC) [Entitic vol] 85.8 fL Normal 80.0-100.0 [facility] Comment on above: Performed By: #### 2 881930, 6922279, 0666707, 26186901, 41715079 #### [facility] [address] [place] [address] Platelet mean volume (Bld) [Entitic vol] 8.2 fL Normal 6.4-10.8 [facility] Comment on above: Performed By: #### 2 639801, 5700302, 3544269, 38648499, 20623952 #### [facility] [address] [place] [address] Platelets (Bld) [#/Vol] 398.0 E9/L Normal 150.0-500.0 [facility] Comment on above: Performed By: #### 2 827157, 0211796, 7746165, 86381456, 26694371 #### [facility] [address] [place] [address] RBC (Bld) [#/Vol] 3.9 E12/L Low 4.3-5.9 [facility] Comment on above: Performed By: #### 2 167023, 6090978, 2307970, 57913886, 15099116 #### [facility] [address] [place] [address] WBC corrected for nucl RBC Auto (Bld) [#/Vol] 4.7 E9/L Normal 4.0-11.0 [facility] Comment on above: Performed By: #### 2 183738, 0678860, 7466695, 54111911, 07705624 #### [facility] [address] [place] [address] CHEMISTRYOrdered By: SYSTEM SYSTEM on 04-24-2023 Anion [...] 115 mL/min/1.73 m2 Normal >=59mL/min/1 .73 m2 [facility] Chem S Comment on above: Interpretive Data: C hronic kidney disease could be indicated at eGFR's of less than 60 mL/min/1.73m2. Kidney failure is indicated at less than 15 mL/min/1.73m2. Glucose [Mass/Vol] 95 mg/dL Normal 55 - 199 mg/dL [facility] Remisol Comment on above: Interpretive Data: I f this glucose result represents a fasting glucose, interpretation should refer to the following reference range: 55-99 mg/dL Potassium [Moles/Vol] 3.8 mmol/L Normal 3.5 - 5.3 mmol/L [facility] Remisol Sodium [Moles/Vol] 138 mmol/L Normal 135 - 145 mmol/L [facility] Remisol Urea nitrogen [Mass/Vol] 6 mg/dL Normal 5 - 21 mg/dL [facility] Remisol Urea nitrogen/Creatinine [Mass ratio] 9 mg/mg Low 10 - 20 [facility] Remisol CT Abdomen/Pelvis w/ Contras ton 04-24-2023 [...] 300 Contrast amount in ml's: 100 Normal [facility] Consent for Treatmenton 04-13 Consent for Treatment [id number] 31 [id number] #1.00TIFF Normal [facility] Discharge Instructionson Discharge Instructions [id number] 110 [id number] #1.00TIFF Normal [facility] ED Clinical Summaryon 2022 ED Clinical Summary [place] [id number] ED Clinical Summary Person Information Name: LIVIA NOYOLA/[facility] Age: 38 Years : 1985 Sex: Female [...] 04/24/2023 16:04:18 ADDRESS: [address] [place] [id number] PHYS DOC NOTES: MEDICAL INFORMATION: Prescriptions Given: New Medications [id number], [address] [place], [place] [id number], [phone] oxycodone (oxyCODONE 5 mg Cap) 1 Capsules [...] up: With: Address: When: YOUR OBGYN at [facility] In 3 days 04/27/2023 Comments: Seek immediate [...] Abdominal pain, acute, left lower quadrant Normal [facility] ED Note-Physicianon 04-24-20 ED Note-Physician Basic Information Time Seen: Jignesh Dumont DOEbenezer 04/24/2023 13:44 Chief Complaint abd pain LLQ [...] clinic Leeanna. She has a visit at [facility] for similar symptoms in the middle of [...] for home. She will follow-up with her BLOCK HANDLER. Return precautions were discussed. All questions were answered. The patient was discharged home. Assessment/Plan Abdominal pain, acute, left lower quadrant (R10.32: Left lower quadrant pain) Ordered: oxycodone, 5 mg = 1 cap(s), Oral, q6hr, PRN Pain 8-10, X 3 day(s), # 12 cap(s), Refills(s) 0, Pharmacy: [id number], 165.1, cm, 04/24/23 13:32:00 EST, Height/Length [...] With When Contact Information YOUR OBGYN at [facility] In 3 days 04/27/2023 EST Additional Instructions: [...] follow-up with (more content not included)... Normal [facility] Comment on above: Result Comment: Elec [...] these instructions at home: Medicines ? Take qnzt-oev-gznmrnc and prescription medicines only as told by [...] your condition for any changes. ? Take gmdx-emq-kxetqex and prescription medicines only as told by [...] provider. Document Revised: 07/18/2020 Document Reviewed: 10/08/2019 [employer] Patient Education ? 2022 [employer]. [facility] ED Patient Summaryon 023 ED Patient Summary [place] [id number] Patient Discharge Instructions Person Information Name: LIVIA NOYOLA Age: 38 Years Arrival Date: 04/24/2023 13:12:30 Discharge Diagnosis: Abdominal pain, acute, left lower quadrant Primary Care Physician: BETTIE MIRELES Provider Information Primary Provider: Jignesh Dumont DO Advanced Electronic Scale Tester:Shazia The exam and treatment you received in the Emergency Department were for an urgent problem and are not intended as complete care. It is important that you follow up with a doctor, nurse practitioner, or physician?s oceanographer assistant for ongoing care. If your symptoms [...] Instructions: With: Address: When: YOUR OBGYN at [facility] In 3 days 04/27/2023 Comments: Seek immediate [...] opioids can be used to help relieve hcifordu-dx-nqexvg pain and are often prescribed following a [...] Talk about (more content not included)... Normal [facility] HEMATOLOGYOrdered By: SYSTEM SYSTEM on 04-24-2023 Basophils/100 [...] 8.2 fL Normal 6.4 - 10.8 fL [facility] HemeAutoSS Platelets (Bld) [#/Vol] 398.0 E9/L Normal 150. 0 - 500.0 E9/L [facility] HemeAutoSS RBC (Bld) [#/Vol] 3.9 E12/L Low 4.3 - 5.9 E12/L [facility] HemeAutoSS WBC corrected for nucl RBC Auto (Bld) [#/Vol] 4.7 E9/L Normal 4.0 - 11.0 E9/L [facility] HemeAutoSS SEROLOGYOrdered By: Brooke Guthrie on 04-24-2023 Beta HCG ( test) Ql Negative (04/24/23 1:55 PM) Normal [facility] Man Sero UA With Cult Reflexon 2022 Bacteria LM Ql (Urine sed) TRACE Normal Trace [facility] Comment on above: Performed By: #### 2 645381, 3849992, 9907827, [id number], [id number] #### [facility] [address] [place] [address] Bilirubin Ql (U) Negative Normal Negative [facility] Comment on above: Performed By: #### 2 253604, 6855865, 6478074, [id number], [id number] #### [facility] [address] [place] [address] Clarity (U) CLEAR Normal Clear [facility] Comment on above: Performed By: #### 2 338640, 2716594, 6992009, 38670123, [id number] #### [facility] [address] [place] [address] Color (U) STRAW Abnormal Yellow [facility] Comment on above: Performed By: #### 2 672660, 1242955, 7307435, 65555307, [id number] #### [facility] [address] [place] [address] Epithelial cells.squamous LM.HPF (Urine sed) [#/Area] 3-4 Normal 0-2 [facility] Comment on above: Performed By: #### 2 440196, 3718227, 7515002, 26442997, 45320970 #### [facility] [address] [place] [address] Glucose Test strip (U) [Mass/Vol] Negative Normal Negative [facility] Comment on above: Performed By: #### 2 850606, 1942428, 7304038, 80150144, [id number] #### [facility] [address] [place] [address] Hemoglobin Ql (U) Negative Normal Negative [facility] Comment on above: Performed By: #### 2 670933, 7007319, 7640889, 90630042, 61477843 #### [facility] [address] [place] [address] Ketones (U) [Mass/Vol] Negative Normal Negative [facility] Comment on above: Performed By: #### 2 042742, 0821342, 7035698, 07173401, [id number] #### [facility] [address] [place] [address] [place].plasma/[place]. RBC (Bld) [Mass ratio] 0-3 Normal 0-3 [facility] Comment on above: Performed By: #### 2 645795, 5029438, 3351885, 77534620, 34665939 #### [facility] [address] [place] [address] Nitrite Ql (U) Negative Normal Negative [facility] Comment on above: Performed By: #### 2 995762, 2556806, 4624783, 06774349, 97642462 #### [facility] [address] [place] [address] pH (U) 7.0 [pH] Invalid Interpretation Code 5.0-9.0 [facility] Comment on above: Performed By: #### 2 683891, 7547148, 8627736, 18041395, 03707547 #### [facility] [address] [place] [address] Protein (U) [Mass/Vol] Negative Normal Negative [facility] Comment on above: Performed By: #### 2 194654, 0534284, 9364019, 91310989, 31912346 #### [facility] [address] [place], [place] [address] Specific gravity (U) [Rel density] <=1.005 Invalid Interpretation Code 1.005-1.030 [facility] Comment on above: Performed By: #### 2 036048, 9754784, 3149144, 63692147, 34209329 #### [facility] [address] [place] [address] Type of Urine collection method Clean Catch Normal [facility] Comment on above: Performed By: #### 2 668430, 5902430, 6238864, 38638231, 37023719 #### [facility] [address] [place], [place] [address] Urobilinogen Qn (U) 0.2 {Ivone'U}/dL Normal 0.0-1.0 [facility] Comment on above: Performed By: #### 2 943515, 3901596, 3140946, 44015990, 47730228 #### [facility] [address] [place] [address] WBC Auto Ql (U) TRACE Abnormal Negative [facility] Comment on above: Performed By: #### 2 880874, 2210637, 2926540, 18744575, 36826716 #### [facility] [address] [place] [address] WBC LM.HPF (Urine sed) [#/Area] 0-5 Normal 0-5 [facility] Comment on above: Performed By: #### 2 710952, 6710164, 6461219, 37251690, 51664730 #### [facility] [address] [place] [address] URINALYSISOrdered By: Chance Guthire on 04-24-2023 Bacteria LM Ql (Urine sed) Trace /HPF Normal Trace/HPF [facility] UA Auto SS Bilirubin Ql (U) Negative [...] PM) Normal Negative [facility] UA Auto SS [place].plasma/[place]. RBC (Bld) [Mass ratio] 0-3 /HPF Normal [...] [facility] UA Auto SS Urobilinogen Qn (U) 0.8155876 {Ivone'U}/dL Normal 0.0 - 1.0 EU/dL [facility] UA Auto SS WBC Auto Ql (U) Trace *ABN* (04/24/23 2:56 PM) Invalid Interpretation Code Negative [facility] UA Auto SS WBC LM.HPF (Urine sed) [#/Area] 0-5 /HPF Normal 0-5/HPF [facility] UA Auto SS eGFRon 04-24-2023 GFR/1.73 sq M.predicted among non-blacks MDRD (S/P/Bld) [Vol rate/Area] 115 mL/min/1.73 m2 Normal >=59 [facility] Comment on above: Order Comment: Order added by Discern Expert. Result Comment: Director Of Orthopedics franklin kidney disease could be indicated at eGFR's of less than 60 mL/min/1.73m2. Kidney failure is indicated at less than 15 mL/min/1.73m2. Performed By: #### 2 413868, 8052162, 2094992, 02784314, [id number] #### [facility] [address] [place] [address] Anisocytosis [Presence] in B lood by Light microscopyOrdered By: Ming Childress on 04-02-2023 Anisocytosis Ql (Bld) Moderate Normal [facility] Comment on above: Performed By: #### U HCG, ADDONUAPLUS #### [address] Automated erythrocytes count in urine sediment (number/area)Ordered By: Ming Childress on 04-02-2023 RBC Auto (Urine sed) [#/Area] 20-49 [HPF] 0-4 [facility] Automated leukocytes count i n urine sediment (number/area)Ordered By: Ming Childress on 04-02-2023 WBC Auto (Urine sed) [#/Area] 3-4 [HPF] 0-4 [facility] Automated urine color determ inationOrdered By: Ming Childress on 04-02-2023 Color (U) Yellow Normal Yellow [facility] Comment on above: Order Comment: Name Collection Type:: Clean-Voided Midstream Performed By: #### U HCG, ADDONUAPLUS #### [place] [id number] [facility] 03-14 Creatinine Clr Calc Pharmacy 97.72 Normal [facility] Comment on above: Result Comment: PERF ORMED BY: [place] [address] PATHOLOGIST ATM MECHANIC FARNAZ ZULETA M.D. Performed By: #### U HCG, ADDONUAPLUS #### [place] [address] [place] GFR/1.73 sq M.predicted MDRD (S/P/Bld) [Vol rate/Area] mL/min/{1.73_m2} Normal [facility] Comment on above: Performed By: #### U HCG, ADDONUAPLUS #### [address] Basophils Auto (Bld) [#/Vol] Ordered By: Ming Childress on 04-02-2023 Basophils (Bld) [#/Vol] N/A [facility] Basophils/100 WBC Auto (Bld) Ordered By: Ming Childress on 04-02-2023 Basophils/100 WBC (Bld) N/A [facility] Basophils/100 leukocytes in Blood by Manual countOrdered By: Ming Childress on 04-02-2023 Basophils/100 WBC (Bld) 1 % Normal 0-2 [facility] Comment on above: Performed By: #### U HCG, ADDONUAPLUS #### [address] Bilirubin Test strip Ql (U)O rdered By: Ming Childress on 04-02-2023 Bilirubin Ql (U) Negative Negative [facility] Calcium [Mass/volume] in Ser um or PlasmaOrdered By: Ming Childress on 04-02-2023 Calcium [Mass/Vol] 9.2 mg/dL Normal 8.6-10.3 [facility] Comment on above: Performed By: #### U HCG, ADDONUAPLUS #### [address] Carbon dioxide, total [Moles /volume] in Serum or PlasmaOrdered By: Ming Childress on 04-02-2023 CO2 [Moles/Vol] 18.5 mmol/L Low 21.0-31.0 [facility] Comment on above: Performed By: #### U HCG, ADDONUAPLUS #### [place] [address] [place] Chloride [Moles/volume] in S binu or PlasmaOrdered By: Ming Childress on 04-02-2023 Chloride [Moles/Vol] 108 mmol/L High 98-107 [facility] Comment on above: Performed By: #### U HCG, ADDONUAPLUS #### [address] Creatinine [Mass/volume] in Serum or PlasmaOrdered By: Ming Childress on 04-02-2023 Creatinine [Mass/Vol] 0.84 mg/dL Normal 0.60-1.20 [facility] Comment on above: Performed By: #### U HCG, ADDONUAPLUS #### [address] Diff and CBCon 04-02-2023 Hypochromasia Slight Normal [facility] Comment on above: Performed By: #### U HCG, ADDONUAPLUS #### [address] Mean Corpuscular HGB Conc 31.8 g/dL Low 32.0-35.0 [facility] Comment on above: Performed By: #### U HCG, ADDONUAPLUS #### [address] Monocytes/100 WBC (Bld) 18.83 % Normal 0.00-20.00 [facility] Comment on above: Performed By: #### U HCG, ADDONUAPLUS #### [address] Nucleated Red Blood Cell 3 /100{WBC} High 0-0 [facility] Comment on above: Performed By: #### U HCG, ADDONUAPLUS #### [address] Ovalocytes Slight Normal [facility] Comment on above: Performed By: #### U HCG, ADDONUAPLUS #### [address] Platelet Estimate Increased Normal Normal [facility] Comment on above: Performed By: #### U HCG, ADDONUAPLUS #### [address] Platelet Morphology Normal Normal Normal [facility] Comment on above: Result Comment: PERF ORMED BY: [place] [address] PATHOLOGIST ATM MECHANIC FARNAZ ZULETA M.D. Performed By: #### U HCG, ADDONUAPLUS #### [address] Poikilocytosis Slight Normal [facility] Comment on above: Performed By: #### U HCG, ADDONUAPLUS #### [address] Polychromasia Moderate Normal [facility] Comment on above: Performed By: #### U HCG, ADDONUAPLUS #### [address] Smudge Cells Slight Normal [facility] Comment on above: Performed By: #### U HCG, ADDONUAPLUS #### [address] Toxic Vacuolation Slight Normal [facility] Comment on above: Performed By: #### U HCG, ADDONUAPLUS #### [place] [address] [place] Dipstick and Microscopicon 1 Appearance (U) Clear Normal Clear [facility] Comment on above: Order Comment: Name Collection Type:: Clean-Voided Midstream Performed By: #### U HCG, ADDONUAPLUS #### [place] [address] [place] Bacteria,Urine None Seen Normal None Seen [facility] Comment on above: Order Comment: Name Collection Type:: Clean-Voided Midstream Performed By: #### U HCG, ADDONUAPLUS #### [place] [address] [place] Bilirubin,Urine Negative Normal Negative [facility] Comment on above: Order Comment: Name Collection Type:: Clean-Voided Midstream Performed By: #### U HCG, ADDONUAPLUS #### [address] [place] [address] [place] Glucose Ql (U) Normal Normal Normal [facility] Comment on above: Order Comment: Name Collection Type:: Clean-Voided Midstream Performed By: #### U HCG, ADDONUAPLUS #### [facility] [address] [place] [address] [place] Hyaline Casts,Urine 0-8 Normal 0-8 [facility] Comment on above: Order Comment: Name Collection Type:: Clean-Voided Midstream Performed By: #### U HCG, ADDONUAPLUS #### [place] [address] [place] Ketones Ql (U) Trace High Negative [facility] Comment on above: Order Comment: Name Collection Type:: Clean-Voided Midstream Performed By: #### U HCG, ADDONUAPLUS #### [place] [address] [place] Leukocyte esterase Test strip Ql (U) 1+ High Negative [facility] Comment on above: Order Comment: Name Collection Type:: Clean-Voided Midstream Performed By: #### U HCG, ADDONUAPLUS #### [place] [address] [place] Nitrite,Urine Negative Normal Negative [facility] Comment on above: Order Comment: Name Collection Type:: Clean-Voided Midstream Performed By: #### U HCG, ADDONUAPLUS #### [place] [address] [place] Occult Blood,Urine 3+ High Negative [facility] Comment on above: Order Comment: Name Collection Type:: Clean-Voided Midstream Performed By: #### U HCG, ADDONUAPLUS #### [facility] [address] [place] [address] [place] Protein,Urine Negative Normal Negative [facility] Comment on above: Order Comment: Name Collection Type:: Clean-Voided Midstream Performed By: #### U HCG, ADDONUAPLUS #### [facility] [address] [place] [address] [place] RBC,Urine 20-49 High 0-4 [facility] Comment on above: Order Comment: Name Collection Type:: Clean-Voided Midstream Performed By: #### U HCG, ADDONUAPLUS #### [facility] [address] [place] [address] Specificy [place],Urine 1.018 Normal 1.001-1.030 [facility] Comment on above: Order Comment: Name Collection Type:: Clean-Voided Midstream Performed By: #### U HCG, ADDONUAPLUS #### [place] [address] [place] Squamous Epithelial Cell,Urine 3-4 High 0-2 [facility] Comment on above: Order Comment: Name Collection Type:: Clean-Voided Midstream Performed By: #### U HCG, ADDONUAPLUS #### [address] Urobilinogen,Urine Normal Normal Normal [facility] Comment on above: Order Comment: Name Collection Type:: Clean-Voided Midstream Performed By: #### U HCG, ADDONUAPLUS #### [place] [address] [place] WBC,Urine 3-4 Normal 0-4 [facility] Comment on above: Order Comment: Name Collection Type:: Clean-Voided Midstream Performed By: #### U HCG, ADDONUAPLUS #### [place] [address] [place] Eosinophils Auto (Bld) [#/Vo l]Ordered By: Ming Childress on 04-02-2023 Eosinophils (Bld) [#/Vol] N/A [facility] Eosinophils/100 WBC Auto (Bl d)Ordered By: Ming Childress on 04-02-2023 Eosinophils/100 WBC (Bld) N/A [facility] Eosinophils/100 leukocytes i n Blood by Manual countOrdered By: Ming Childress on 04-02-2023 Eosinophils/100 WBC (Bld) 4 % High 1-3 [facility] Comment on above: Performed By: #### U HCG, ADDONUAPLUS #### [address] [address] [place] Erythrocyte distribution wid th [Ratio] by Automated countOrdered By: Ming Childress on 04-02-2023 Erythrocyte distribution width (RBC) [Ratio] 15.2 % Normal 11.9-15.3 [facility] Comment on above: Performed By: #### U HCG, ADDONUAPLUS #### [facility] [address] Erythrocytes [#/volume] in B lood by Automated countOrdered By: Ming Childress on 04-02-2023 RBC (Bld) [#/Vol] 4.67 10*6/uL Normal 3.60-5.00 [facility] Comment on above: Performed By: #### U HCG, ADDONUAPLUS #### [facility] [address] [place] [address] Glucose [Mass/volume] in Ser um or PlasmaOrdered By: Ming Childress on 04-02-2023 Glucose [Mass/Vol] 94 mg/dL Normal 70-100 [facility] Comment on above: ADA recommended refe rence rangeRandom Glucose Reference Range is dependent on time and content of last meal. Glucose of more than 200 mg/dL in a nonstressed, ambulatory subject supports the diagnosis of Diabetes Mellitus. Result Comment: [place] om Glucose Reference Range is dependent on time and content of last meal. Glucose of more than 200 mg/dL in a nonstressed, ambulatory subject supports the diagnosis of Diabetes Mellitus. ADA recommended reference range Performed By: #### U HCG, ADDONUAPLUS #### [facility] [address] [place] [address] HCG ( test) IA.rapi d Ql (U)Ordered By: Ming Childress on 04-02-2023 HCG ( test) Ql (U) Negative [facility] HCG,Urineon 04-02-2023 Beta HCG ( test) Ql (U) Negative Normal [facility] Comment on above: Order Comment: Name Collection Type:: Clean-Voided Midstream Result Comment: PERF ORMED BY: [address] [place] [address] PATHOLOGIST ATM MECHANIC FARNAZ ZULETA M.D. Performed By: #### U HCG, ADDONUAPLUS #### [facility] [address] [place] [address] Hematocrit [Volume Fraction] of Blood by Automated countOrdered By: Ming Childress on 04-02-2023 Hematocrit (Bld) [Volume fraction] 36.1 % Normal 34.0-46.4 [facility] Comment on above: Performed By: #### U HCG, ADDONUAPLUS #### [address] Hemoglobin [Mass/volume] in BloodOrdered By: Ming Childress on 04-02-2023 Hemoglobin (Bld) [Mass/Vol] 11.5 g/dL Low 11.8-15.4 [facility] Comment on above: Performed By: #### U HCG, ADDONUAPLUS #### [facility] [address] [place] [address] Hypochromia LM Ql (Bld)Order ed By: Ming Childress on 04-02-2023 Hypochromia Ql (Bld) Slight [facility] Ketones Auto test strip (U) [Mass/Vol]Ordered By: Ming Childress on 04-02-2023 Ketones (U) [Mass/Vol] Trace Negative [facility] - UrinalysisOrder ed By: Ming Childress on 04-02-2023 Hyaline casts LM Ql (Urine sed) 0-8 [LPF] 0-8 [facility] Leukocytes [#/volume] correc flo for nucleated erythrocytes in Blood by Automated counOrdered By: Ming Childress on 04-02-2023 WBC corrected for nucl RBC Auto (Bld) [#/Vol] 6.8 10*3/uL 3.8-11.6 [facility] Leukocytes [#/volume] in Blo od by Automated countOrdered By: Ming Childress on 04-02-2023 WBC (Bld) [#/Vol] 6.8 10*3/uL Normal 3.8-11.6 [facility] Comment on above: Performed By: #### U HCG, ADDONUAPLUS #### [facility] [address] [place] [address] Lymphocytes Auto (Bld) [#/Vo l]Ordered By: Ming Childress on 04-02-2023 Lymphocytes (Bld) [#/Vol] N/A [facility] Lymphocytes/100 WBC Auto (Bl d)Ordered By: Ming Childress on 04-02-2023 Lymphocytes/100 WBC (Bld) N/A [facility] Lymphocytes/100 leukocytes i n Blood by Manual countOrdered By: Ming Childress on 04-02-2023 Lymphocytes/100 WBC (Bld) 43 % High 18-42 [facility] Comment on above: Performed By: #### U HCG, ADDONUAPLUS #### [address] MCH [Entitic mass] by Automa flo countOrdered By: Ming Childress on 04-02-2023 MCH (RBC) [Entitic mass] 24.5 pg Low 24.7-34.3 [facility] Comment on above: Performed By: #### U HCG, ADDONUAPLUS #### [facility] [address] [place] [address] MCHC Auto (RBC) [Mass/Vol]Or dered By: Ming Childress on 04-02-2023 MCHC (RBC) [Mass/Vol] 31.8 g/dL 32.0-35.0 [facility] MCV [Entitic volume] by Auto mated countOrdered By: Ming Childress on 04-02-2023 MCV (RBC) [Entitic vol] 77.3 fL Low 80-100 [facility] [facility] Comment on above: Performed By: #### U HCG, ADDONUAPLUS #### [facility] [address] [place] [address] Manual blood segmented neutr ophils/100 leukocytesOrdered By: Ming Childress on 04-02-2023 Segmented neutrophils/100 WBC (Bld) 47 % Low 50-70 [facility] Comment on above: Performed By: #### U HCG, ADDONUAPLUS #### [facility] [address] Monocyte distribution width [Entitic volume] in Blood by AutomatedOrdered By: Ming Childress on 04-02-2023 Monocyte distribution width Auto (Bld) [Entitic vol] 18.83 % 0.00-20.00 [facility] Monocytes Auto (Bld) [#/Vol] Ordered By: Ming Childress on 04-02-2023 Monocytes (Bld) [#/Vol] N/A [facility] Monocytes/100 WBC Auto (Bld) Ordered By: Ming Childress on 04-02-2023 Monocytes/100 WBC (Bld) N/A [facility] Monocytes/100 leukocytes in Blood by Manual countOrdered By: Ming Childress on 04-02-2023 Monocytes/100 WBC (Bld) 5 % Normal 2-11 [facility] Comment on above: Performed By: #### U HCG, ADDONUAPLUS #### [facility] [address] Neutrophils Auto (Bld) [#/Vo l]Ordered By: Ming Childress on 04-02-2023 Neutrophils (Bld) [#/Vol] N/A [facility] Neutrophils/100 WBC Auto (Bl d)Ordered By: Ming Childress on 04-02-2023 Neutrophils/100 WBC (Bld) N/A [facility] Nitrite Test strip Ql (U)Ord ered By: Ming Childress on 04-02-2023 Nitrite Ql (U) Negative Negative [facility] No Panel InformationOrdered By: Ming Childress on 04-02-2023 Estimated GFR (CKD-EPI) > 60.0 mL/Min [facility] Creatinine Clearance (Chem 97.72 [facility] Nucleated RBC/100 WBC Manual cnt (Bld) [Ratio]Ordered By: Ming Childress on 04-02-2023 Nucleated RBC/100 WBC (Bld) [Ratio] 3 /100{WBC} 0-0 [facility] Nucleated erythrocytes [Pres ence] in Blood by Automated countOrdered By: Ming Childress on 04-02-2023 Nucleated RBC Auto Ql (Bld) N/A [facility] Ovalocyte detectionOrdered B y: Ming Childress on 04-02-2023 Ovalocytes LM Ql (Bld) [facility] Platelet adequacy [Presence] in Blood by Light microscopyOrdered By: Ming Childress on 04-02-2023 Platelets LM Ql (Bld) Increased Normal [facility] Platelet mean volume [Entiti c volume] in Blood by Automated countOrdered By: Ming Childress on 04-02-2023 Platelet mean volume (Bld) [Entitic vol] 8.1 fL Normal 6.3-10.7 [facility] Comment on above: Result Comment: PERF ORMED BY: [place] [address] PATHOLOGIST [employer] MECH[employer] FARNAZ ZULETA M.D. Performed By: #### U HCG, ADDONUAPLUS #### [facility] [address] [place] [address] Platelet morphology finding [Identifier] in BloodOrdered By: Ming Childress on 04-02-2023 Platelet morphology finding Nom (Bld) Normal Normal [facility] Platelets [#/volume] in Bloo d by Automated countOrdered By: Ming Childress on 04-02-2023 Platelets (Bld) [#/Vol] 492 10*3/uL High 150-450 [facility] Comment on above: Performed By: #### U HCG, ADDONUAPLUS #### [facility] [address] [place] [address] Poikilocytosis [Presence] in Blood by Light microscopyOrdered By: Ming Childress on 04-02-2023 Poikilocytosis LM Ql (Bld) Slight [facility] Polychromasia [Presence] in Blood by Light microscopyOrdered By: Ming Childress on 04-02-2023 Polychromasia LM Ql (Bld) Moderate [facility] Potassium [Moles/volume] in Serum or PlasmaOrdered By: Ming Childress on 04-02-2023 Potassium [Moles/Vol] 3.7 mmol/L Normal 3.5-5.1 [facility] Comment on above: Performed By: #### U HCG, ADDONUAPLUS #### [facility] [address] Protein Auto test strip (U) [Mass/Vol]Ordered By: Ming Childress on 04-02-2023 Protein (U) [Mass/Vol] Negative Negative [facility] RBC morphologyOrdered By: Carmen Childress on 04-02-2023 RBC morphology finding Nom (Bld) N/A [facility] Serum or plasma anion gap de terminationOrdered By: Ming Childress on 04-02-2023 Anion gap [Moles/Vol] 14.2 mmol/L Normal 6.0-15.0 [facility] Comment on above: Performed By: #### U HCG, ADDONUAPLUS #### [facility] [address] [place] [address] Smudge cell detectionOrdered By: Ming Childress on 04-02-2023 Smudge cells LM Ql (Bld) [facility] Sodium [Moles/volume] in Ser um or PlasmaOrdered By: Ming Childress on 04-02-2023 Sodium [Moles/Vol] 137 mmol/L Normal 136-145 [facility] Comment on above: Performed By: #### U HCG, ADDONUAPLUS #### [facility] [address] [place] [address] Specific gravity Auto test s trip (U) [Rel density]Ordered By: Ming Childress on 04-02-2023 Specific gravity (U) [Rel density] 1.018 1.001-1.030 [facility] Squamous epithelial cells de tection in urine sediment by light microscopyOrdered By: Ming Childress on 04-02-2023 Epithelial cells.squamous LM Ql (Urine sed) 3-4 [HPF] 0-2 [facility] Toxic leukocyte vacuolation detectionOrdered By: Ming Childress on 04-02-2023 Leukocyte toxic vacuoles LM Ql (Bld) Slight [facility] Urea nitrogen [Mass/volume] in Serum or PlasmaOrdered By: Ming Childress on 04-02-2023 Urea nitrogen [Mass/Vol] 9 mg/dL Normal 7- [facility] Comment on above: Performed By: #### U HCG, ADDONUAPLUS #### [facility] [address] Urine bacteria detection by automated methodOrdered By: Ming Childress on 04-02-2023 Bacteria Auto Ql (U) None seen None Seen [facility] Urine clarity by refractomet ry automatedOrdered By: Ming Childress on 04-02-2023 Clarity Refractometry automated (U) Clear Clear [facility] Urine glucose measurement by automated test strip (mass/volume)Ordered By: Ming Childress on 04-02-2023 Glucose Auto test strip (U) [Mass/Vol] Normal mg/dL Normal [facility] Urine hemoglobin detection b y automated test stripOrdered By: Ming Childress on 04-02-2023 Hemoglobin Auto test strip Ql (U) 3+ Negative [facility] Urine leukocyte esterase det ection by automated test stripOrdered By: Ming Childress on 04-02-2023 Leukocyte esterase Auto test strip Ql (U) 1+ Negative [facility] Urine pH measurement by auto mated test stripOrdered By: Ming Childress on 04-02-2023 pH (U) 6.0 [pH] Normal 5.0-9.0 [facility] Comment on above: Order Comment: Name Collection Type:: Clean-Voided Midstream Performed By: #### U HCG, ADDONUAPLUS #### [facility] [address] Urobilinogen Auto test strip (U) [Mass/Vol]Ordered By: Ming Childress on 04-02-2023 Urobilinogen (U) [Mass/Vol] Normal mg/dL Normal [facility] Alanine aminotransferase [En zymatic activity/volume] in Serum or PlasmaOrdered By: Ming Childress on 03-29-2023 ALT [Catalytic activity/Vol] 14 U/L Normal [facility] Comment on above: Performed By: #### B MP, LIPASE, HEPATIC #### [address] Albumin [Mass/volume] in Ser um or Plasma by Bromocresol green (BCG) dye binding methoOrdered By: Ming Childress on 03-29-2023 Albumin BCG dye [Mass/Vol] 4.0 g/dL 3.5-5.7 [facility] Alkaline phosphatase [Enzyma tic activity/volume] in Serum or PlasmaOrdered By: Ming Childress on 03-29-2023 ALP [Catalytic activity/Vol] 61 U/L Normal 34-104 [facility] Comment on above: Performed By: #### B MP, LIPASE, HEPATIC #### [address] Aspartate aminotransferase [ Enzymatic activity/volume] in Serum or PlasmaOrdered By: Ming Childress on 03-29-2023 AST [Catalytic activity/Vol] 19 U/L Normal 13-39 [facility] Comment on above: Performed By: #### B MP, LIPASE, HEPATIC #### [address] Automated basophil %Ordered By: Ming Childress on 03-29-2023 Basophils/100 WBC (Bld) 1.3 % Normal . [facility] Comment on above: Performed By: #### U HCG, ADDONUAPLUS #### [address] Automated basophil countOrde red By: Ming Childress on 03-29-2023 Basophils (Bld) [#/Vol] 0.1 10*3/uL Normal 0.0-0.2 [facility] Comment on above: Result Comment: PERF ORMED BY: [place] [address] PATHOLOGIST [employer] MECH[employer] FARNAZ ZULETA M.D. Performed By: #### U HCG, ADDONUAPLUS #### [address] Automated blood monocyte cou ntOrdered By: Ming Childress on 03-29-2023 Monocytes (Bld) [#/Vol] 0.6 10*3/uL Normal 0.0-0.8 [facility] Comment on above: Performed By: #### U HCG, ADDONUAPLUS #### [address] Automated eosinophil %Ordere d By: Ming Childress on 03-29-2023 Eosinophils/100 WBC (Bld) 1.8 % Normal . [facility] Comment on above: Performed By: #### U HCG, ADDONUAPLUS #### [address] Automated eosinophil countOr dered By: Mingsil Childress on 03-29-2023 Eosinophils (Bld) [#/Vol] 0.1 10*3/uL Normal 0.0-0.45 [facility] Comment on above: Performed By: #### U HCG, ADDONUAPLUS #### [address] Automated monocyte %Ordered By: Ming Childress on 03-29-2023 Monocytes/100 WBC (Bld) 7.3 % Normal . [facility] Comment on above: Performed By: #### U HCG, ADDONUAPLUS #### [address] Automated neutrophil %Ordere d By: Ming Childress on 03-29-2023 Neutrophils/100 WBC (Bld) 46.8 % Normal . [facility] Comment on above: Performed By: #### U HCG, ADDONUAPLUS #### [address] Automated urine color determ inationOrdered By: Ming Childress on 03-29-2023 Color (U) Yellow Normal Yellow [facility] Comment on above: Order Comment: Name Collection Type:: Clean-Voided Midstream Performed By: #### H CGQNT #### [address] Basic Metabolic Panelon 03-13 Creatinine Clr Calc Pharmacy 134.47 Normal [facility] Comment on above: Performed By: #### B MP, LIPASE, HEPATIC #### [facility] [address] GFR/1.73 sq M.predicted MDRD (S/P/Bld) [Vol rate/Area] mL/min/{1.73_m2} Normal [facility] Comment on above: Performed By: #### B MP, LIPASE, HEPATIC #### [facility] [address] Bilirubin Test strip Ql (U)O rdered By: Ming Childress on 03-29-2023 Bilirubin Ql (U) Negative Negative [facility] Bilirubin.direct [Mass/volum e] in Serum or PlasmaOrdered By: Ming Childress on 03-29-2023 Bilirubin.direct [Mass/Vol] 0.10 mg/dL 0.03-0.18 [facility] Bilirubin.total [Mass/volume ] in Serum or PlasmaOrdered By: Ming Childress on 03-29-2023 Bilirubin [Mass/Vol] 0.3 mg/dL Normal 0.3-1.0 [facility] Comment on above: Performed By: #### B MP, LIPASE, HEPATIC #### [address] abdomen pelvis w conon CT abdomen pelvis w con [facility] [address] [place] [address] CT Scan Report Signed Patient: Livia Noyola MR#: [id number] : 1985 Acct:[id number] Age/Sex: 38 / F ADM Date: 03/29/23 Loc: Room: [address] [place] [address] Type: ADM IN Attending Dr: Christi Aquino [...] Alesha Tejada M.D.03/29/2023 7:14 AM Dictation Location: [place] [address] Transcribed By: AMBER 03/29/23713 Dictated By: Alesha Tejada MD 03/29/23709 Signed By: 03/29/23713 Normal [facility] Calcium [Mass/volume] in Ser um or PlasmaOrdered By: Ming Childress on 03-29-2023 Calcium [Mass/Vol] 8.9 mg/dL Normal 8.6-10.3 [facility] Comment on above: Performed By: #### B MP, LIPASE, HEPATIC #### [address] Carbon dioxide, total [Moles /volume] in Serum or PlasmaOrdered By: Ming Childress on 03-29-2023 CO2 [Moles/Vol] 22.2 mmol/L Normal 21.0-31.0 [facility] Comment on above: Performed By: #### B MP, LIPASE, HEPATIC #### [address] Chloride [Moles/volume] in S binu or PlasmaOrdered By: Ming Childress on 03-29-2023 Chloride [Moles/Vol] 107 mmol/L Normal 98-107 [facility] Comment on above: Performed By: #### B MP, LIPASE, HEPATIC #### [address] Complete Blood Count Auto Di ffon 03-29-2023 Mean Corpuscular HGB Conc 32.0 g/dL Normal 32.0-35.0 [facility] Comment on above: Performed By: #### U HCG, ADDONUAPLUS #### [address] NRBC% 0.1 /100{WBC} Normal 0-0.5 [facility] Comment on above: Performed By: #### U HCG, ADDONUAPLUS #### [address] Creatinine [Mass/volume] in Serum or PlasmaOrdered By: Ming Childress on 03-29-2023 Creatinine [Mass/Vol] 0.63 mg/dL Normal 0.60-1.20 [facility] Comment on above: Performed By: #### B MP, LIPASE, HEPATIC #### [address] Erythrocyte distribution wid th [Ratio] by Automated countOrdered By: Ming Childress on 03-29-2023 Erythrocyte distribution width (RBC) [Ratio] 15.2 % Normal 11.9-15.3 [facility] Comment on above: Performed By: #### U HCG, ADDONUAPLUS #### [address] Erythrocytes [#/volume] in B lood by Automated countOrdered By: Ming Childress on 03-29-2023 RBC (Bld) [#/Vol] 4.34 10*6/uL Normal 3.60-5.00 [facility] Comment on above: Performed By: #### U HCG, ADDONUAPLUS #### [address] Glucose [Mass/volume] in Ser um or PlasmaOrdered By: Ming Childress on 03-29-2023 Glucose [Mass/Vol] 90 mg/dL Normal 70-100 [facility] Comment on above: ADA recommended refe rence rangeRandom Glucose Reference Range is dependent on time and content of last meal. Glucose of more than 200 mg/dL in a nonstressed, ambulatory subject supports the diagnosis of Diabetes Mellitus. Result Comment: [place] om Glucose Reference Range is dependent on time and content of last meal. Glucose of more than 200 mg/dL in a nonstressed, ambulatory subject supports the diagnosis of Diabetes Mellitus. ADA recommended reference range Performed By: #### B MP, LIPASE, HEPATIC #### [address] HCG ( test) IA.rapi d Ql (U)Ordered By: Ming Childress on 03-29-2023 HCG ( test) Ql (U) Negative [facility] HCG,Urineon 03-29-2023 Beta HCG ( test) Ql (U) Negative Normal [facility] Comment on above: Order Comment: Name Collection Type:: Clean-Voided Midstream Result Comment: PERF ORMED BY: [place] [address] PATHOLOGIST [employer] MECH[employer] FARNAZ ZULETA M.D. Performed By: #### H CGQNT #### [address] Hematocrit [Volume Fraction] of Blood by Automated countOrdered By: Ming Childress on 03-29-2023 Hematocrit (Bld) [Volume fraction] 32.6 % Low 34.0-46.4 [facility] Comment on above: Performed By: #### U HCG, ADDONUAPLUS #### [address] Hemoglobin [Mass/volume] in BloodOrdered By: Ming Childress on 03-29-2023 Hemoglobin (Bld) [Mass/Vol] 10.4 g/dL Low 11.8-15.4 [facility] Comment on above: Performed By: #### U HCG, ADDONUAPLUS #### [address] Hepatic Panelon 03-29-2023 Albumin [Mass/Vol] 4.0 g/dL Normal 3.5-5.7 [facility] Comment on above: Performed By: #### B MP, LIPASE, HEPATIC #### [address] Bilirubin,Indirect 0.2 mg/dL Normal [facility] Comment on above: Performed By: #### B MP, LIPASE, HEPATIC #### [address] Bilirubin.indirect [Mass/Vol] 0.10 mg/dL Normal 0.03-0.18 [facility] Comment on above: Performed By: #### B MP, LIPASE, HEPATIC #### [address] Ketones Auto test strip (U) [Mass/Vol]Ordered By: Ming Childress on 03-29-2023 Ketones (U) [Mass/Vol] Negative Negative [facility] Lactate [Moles/volume] in Se rum or PlasmaOrdered By: Megan Muniz on 03-29-2023 Lactate [Moles/Vol] 0.8 mmol/L Normal 0.5-2.2 [facility] Comment on above: Result Comment: PERF ORMED BY: [place] [address] PATHOLOGIST [employer] MECH[employer] FARNAZ ZULETA M.D. Performed By: #### H CGQNT #### [address] Leukocytes [#/volume] correc flo for nucleated erythrocytes in Blood by Automated counOrdered By: Ming Childress on 03-29-2023 WBC corrected for nucl RBC Auto (Bld) [#/Vol] 7.5 10*3/uL 3.8-11.6 [facility] Leukocytes [#/volume] in Blo od by Automated countOrdered By: Ming Childress on 03-29-2023 WBC (Bld) [#/Vol] 7.5 10*3/uL Normal 3.8-11.6 [facility] Comment on above: Performed By: #### U HCG, ADDONUAPLUS #### [address] Lipase [Enzymatic activity/v olume] in Serum or PlasmaOrdered By: Ming Childress on 03-29-2023 Lipase [Catalytic activity/Vol] 30.0 U/L Normal 11.0-82.0 [facility] Comment on above: Result Comment: PERF ORMED BY: [place] [address] PATHOLOGIST ATM MECH[employer] FARNAZ ZULETA M.D. Performed By: #### B MP, LIPASE, HEPATIC #### [place] [address] [place] Lymphocytes [#/volume] in Bl ood by Automated countOrdered By: Ming Childress on 03-29-2023 Lymphocytes (Bld) [#/Vol] 3.2 10*3/uL Normal 1.00-4.8 [facility] Comment on above: Performed By: #### U HCG, ADDONUAPLUS #### [place] [address] [place] Lymphocytes/100 leukocytes i n Blood by Automated countOrdered By: Ming Childress on 03-29-2023 Lymphocytes/100 WBC (Bld) 42.8 % Normal . [facility] Comment on above: Performed By: #### U HCG, ADDONUAPLUS #### [place] [address] [place] MCH [Entitic mass] by Automa flo countOrdered By: Ming Childress on 03-29-2023 MCH (RBC) [Entitic mass] 24.1 pg Low 24.7-34.3 [facility] Comment on above: Performed By: #### U HCG, ADDONUAPLUS #### [facility] [address] MCHC Auto (RBC) [Mass/Vol]Or dered By: Ming Childress on 03-29-2023 MCHC (RBC) [Mass/Vol] 32.0 g/dL 32.0-35.0 [facility] MCV [Entitic volume] by Auto mated countOrdered By: Ming Childress on 03-29-2023 MCV (RBC) [Entitic vol] 75.2 fL Low 80-100 [facility] Comment on above: Performed By: #### U HCG, ADDONUAPLUS #### [facility] [address] [place] [address] Neutrophils [#/volume] in Bl ood by Automated countOrdered By: Ming Childress on 03-29-2023 Neutrophils (Bld) [#/Vol] 3.5 10*3/uL Normal 1.8-7.7 [facility] Comment on above: Performed By: #### U HCG, ADDONUAPLUS #### [facility] [address] [place] [address] Nitrite Test strip Ql (U)Ord ered By: Ming Childress on 03-29-2023 Nitrite Ql (U) Negative Negative [facility] No Panel InformationOrdered By: Ming Childress on 03-29-2023 Estimated GFR (CKD-EPI) > 60.0 mL/Min [facility] Creatinine Clearance (Chem 134.47 [facility] Nucleated erythrocytes [Pres ence] in Blood by Automated countOrdered By: Ming Childress on 03-29-2023 Nucleated RBC Auto Ql (Bld) 0.1 /100{WBC} 0-0.5 [facility] Platelet mean volume [Entiti c volume] in Blood by Automated countOrdered By: Ming Childress on 03-29-2023 Platelet mean volume (Bld) [Entitic vol] 8.0 fL Normal 6.3-10.7 [facility] Comment on above: Performed By: #### U HCG, ADDONUAPLUS #### [facility] [address] [place] [address] Platelets [#/volume] in Bloo d by Automated countOrdered By: Ming Childress on 03-29-2023 Platelets (Bld) [#/Vol] 396 10*3/uL Normal 150-450 [facility] Comment on above: Performed By: #### U HCG, ADDONUAPLUS #### [address] Potassium [Moles/volume] in Serum or PlasmaOrdered By: Ming Childress on 03-29-2023 Potassium [Moles/Vol] 3.6 mmol/L Normal 3.5-5.1 [facility] Comment on above: Performed By: #### B MP, LIPASE, HEPATIC #### [address] Protein Auto test strip (U) [Mass/Vol]Ordered By: Ming Childress on 03-29-2023 Protein (U) [Mass/Vol] Negative Negative [facility] Protein [Mass/volume] in Ser um or PlasmaOrdered By: Ming Childress on 03-29-2023 Protein [Mass/Vol] 6.8 g/dL Normal 6.4-8.9 [facility] Comment on above: Performed By: #### B MP, LIPASE, HEPATIC #### [address] Serum globulin measurement b y calculation (mass/volume)Ordered By: Ming Childress on 03-29-2023 Globulin (S) [Mass/Vol] 2.8 g/dL Normal [facility] Comment on above: Performed By: #### B MP, LIPASE, HEPATIC #### [address] Serum or plasma albumin/glob ulin mass ratioOrdered By: Ming Childress on 03-29-2023 Albumin/Globulin [Mass ratio] 1.4 {ratio} Normal [facility] Comment on above: Performed By: #### B MP, LIPASE, HEPATIC #### [address] Serum or plasma anion gap de terminationOrdered By: Ming Childress on 03-29-2023 Anion gap [Moles/Vol] 12.4 mmol/L Normal 6.0-15.0 [facility] Comment on above: Performed By: #### B MP, LIPASE, HEPATIC #### [address] Serum or plasma non-glucuron idated bilirubin measurement (mass/volume)Ordered By: Ming Childress on 03-29-2023 Bilirubin.indirect [Mass/Vol] 0.2 mg/dL [facility] Sodium [Moles/volume] in Ser um or PlasmaOrdered By: Ming Childress on 03-29-2023 Sodium [Moles/Vol] 138 mmol/L Normal 136-145 [facility] Comment on above: Performed By: #### B MP, LIPASE, HEPATIC #### [address] Specific gravity Auto test s trip (U) [Rel density]Ordered By: Ming Childress on 03-29-2023 Specific gravity (U) [Rel density] 1.003 1.001-1.030 [facility] US transvaginalon 03-29-2023 US transvaginal [facility] [address] [place] [address] Ultrasound Report Signed Patient: Livia Noyola MR#: [id number] : 1985 Acct:[id number] Age/Sex: 38 / F ADM Date: 03/29/23 Loc: Room: [address] [place] [address] Type: ADM IN Attending Dr: Christi Aquino MD Ordering Provider: Ming Childress DO Date of Service: 03/29/23 US/US transvaginal: r/o L ovarian torsion ([id number]) US/US pelvic complete: PAIN Copies to: DO [...] Davi Figueroa M.D.03/29/2023 8:20 AM Dictation Location: [place] [address] Tech: Brooke Hodge Transcribed By: PWS 03/29/23819 Dictated By: Davi Figueroa DO 03/29/23815 Signed By: 03/29/23819 Normal [facility] Urea nitrogen [Mass/volume] in Serum or PlasmaOrdered By: Ming Childress on 03-29-2023 Urea nitrogen [Mass/Vol] 6 mg/dL Low 7-25 [facility] Comment on above: Performed By: #### B MP, LIPASE, HEPATIC #### [facility] [address] [place] [id number] [place] Urinalysison 03-29-2023 Appearance (U) Clear Normal Clear [facility] Comment on above: Order Comment: Name Collection Type:: Clean-Voided Midstream Performed By: #### H CGQNT #### [facility] [address] [place] [address] [place] Bilirubin,Urine Negative Normal Negative [facility] Comment on above: Order Comment: Name Collection Type:: Clean-Voided Midstream Performed By: #### H CGQNT #### [facility] [address] [place] [address] [place] Glucose Ql (U) Normal Normal Normal [facility] Comment on above: Order Comment: Name Collection Type:: Clean-Voided Midstream Performed By: #### H CGQNT #### [facility] [address] [place] [address] [place] Ketones Ql (U) Negative Normal Negative [facility] Comment on above: Order Comment: Name Collection Type:: Clean-Voided Midstream Performed By: #### H CGQNT #### [place] [id number] [place] Leukocyte esterase Test strip Ql (U) Negative Normal Negative [facility] Comment on above: Order Comment: Name Collection Type:: Clean-Voided Midstream Performed By: #### H CGQNT #### [place] [address] [place] Nitrite,Urine Negative Normal Negative [facility] Comment on above: Order Comment: Name Collection Type:: Clean-Voided Midstream Performed By: #### H CGQNT #### [place] [address] [place] Occult Blood,Urine Negative Normal Negative [facility] Comment on above: Order Comment: Name Collection Type:: Clean-Voided Midstream Performed By: #### H CGQNT #### [place] [address] [place] Protein,Urine Negative Normal Negative [facility] Comment on above: Order Comment: Name Collection Type:: Clean-Voided Midstream Performed By: #### H CGQNT #### [place] [address] [place] Specificy Sumrall,Urine 1.003 Normal 1.001-1.030 [facility] Comment on above: Order Comment: Name Collection Type:: Clean-Voided Midstream Performed By: #### H CGQNT #### [place] [address] [place] Urobilinogen,Urine Normal Normal Normal [facility] Comment on above: Order Comment: Name Collection Type:: Clean-Voided Midstream Performed By: #### H CGQNT #### [place] [address] [place] Urine clarity by refractomet ry automatedOrdered By: Ming Childress on 03-29-2023 Clarity Refractometry automated (U) Clear Clear [facility] Urine glucose measurement by automated test strip (mass/volume)Ordered By: Ming Childress on 03-29-2023 Glucose Auto test strip (U) [Mass/Vol] Normal mg/dL Normal [facility] Urine hemoglobin detection b y automated test stripOrdered By: Ming Childress on 03-29-2023 Hemoglobin Auto test strip Ql (U) Negative Negative [facility] Urine leukocyte esterase det ection by automated test stripOrdered By: Ming Childress on 03-29-2023 Leukocyte esterase Auto test strip Ql (U) Negative Negative [facility] Urine pH measurement by auto mated test stripOrdered By: Ming Childress on 03-29-2023 pH (U) 7.5 [pH] Normal 5.0-9.0 [facility] Comment on above: Order Comment: Name Collection Type:: Clean-Voided Midstream Performed By: #### H CGQNT #### [facility] [address] [place] [address] Urobilinogen Auto test strip (U) [Mass/Vol]Ordered By: Ming Childress on 03-29-2023 Urobilinogen (U) [Mass/Vol] Normal mg/dL Normal [facility] Automated urine color determ inationOrdered By: Elier Jackson on 02-06-2023 Color (U) Yellow Normal Yellow [facility] Comment on above: Order Comment: Name Collection Type:: Clean-Voided Midstream Performed By: #### U A, UHCG #### [facility] [address] [place] [address] Bilirubin Test strip Ql (U)O rdered By: Elier Jackson on 02-06-2023 Bilirubin Ql (U) Negative Negative [facility] CT abdomen pelvis w conon CT abdomen pelvis w con [facility] [place] [address] CT Scan Report Signed Patient: Livia Noyola MR#: [id number] : 1985 Acct:[id number] Age/Sex: 38 / F ADM Date: 02/05/23 Loc: ER Room: Type: [facility] ER Attending Dr: Copies to: [...] IMPRESSION: No acute findings. Impression dictated by: Dnenis Betancur Jr., D.O.02/06/2023 11:23 AM Dictation Location: [place] [address] Transcribed By: [facility] 02/06/23 1123 Dictated By: Dennis Betancur Jr, DO 02/06/23 1109 Signed By: 02/06/23 1123 Normal [facility] HCG ( test) IA.rapi d Ql (U)Ordered By: Elier Jackson on 02-06-2023 HCG ( test) Ql (U) Negative [facility] HCG,Urineon 02-06-2023 Beta HCG ( test) Ql (U) Negative Normal [facility] Comment on above: Order Comment: Name Collection Type:: Clean-Voided Midstream Result Comment: PERF ORMED BY: [place] [address] PATHOLOGIST [employer] FARNAZ ZULETA M.D. Performed By: #### [facility] #### [address] Ketones Auto test strip (U) [Mass/Vol]Ordered By: Elier Jackson on 02-06-2023 Ketones (U) [Mass/Vol] Negative Negative Fi [facility] Nitrite Test strip Ql (U)Ord ered By: Elier Jackson on 02-06-2023 Nitrite Ql (U) Negative Negative [facility] Protein Auto test strip (U) [Mass/Vol]Ordered By: Elier Jackson on 02-06-2023 Protein (U) [Mass/Vol] Negative Negative Fi [facility] Specific gravity Auto test s trip (U) [Rel density]Ordered By: Elier Jackson on 02-06-2023 Specific gravity (U) [Rel density] 1.007 1.001-1.030 [facility] US pelvic completeon 023 US pelvic complete [facility] Main [address] [address] Ultrasound Report Signed Patient: Livia Noyola MR#: [id number] : 1985 Acct:[id number] Age/Sex: 38 / F ADM Date: 02/05/23 Loc: ER Room: Type: [facility] ER Attending Dr: Ordering Provider: Elier Jackson DO Date of Service: 02/06/23 US/US pelvic complete: adnexa pain ([id number]) US/US transvaginal: . Copies to: Elier Jackson [...] D.O.02/06/2023 11:25 AM Dictation Location: [place] [address] Tech: Jada Webb Transcribed By: [facility] 02/06/23 1125 Dictated By: Dennis Betancur Jr, DO 02/06/23 112 Signed By: 02/06/23 1125 Normal [facility] Urinalysison 02-06-2023 Appearance (U) Clear Normal Clear [facility] Comment on above: Order Comment: Name Collection Type:: Clean-Voided Midstream Performed By: #### U A, UHCG #### [place] [address] [place] Bilirubin,Urine Negative Normal Negative [facility] Comment on above: Order Comment: Name Collection Type:: Clean-Voided Midstream Performed By: #### U A, UHCG #### [place] [address] [place] Glucose Ql (U) Normal Normal Normal [facility] Comment on above: Order Comment: Name Collection Type:: Clean-Voided Midstream Performed By: #### U A, UHCG #### [place] [id number] [place] Ketones Ql (U) Negative Normal Negative [facility] Comment on above: Order Comment: Name Collection Type:: Clean-Voided Midstream Performed By: #### U A, UHCG #### [place] [id number] [place] Leukocyte esterase Test strip Ql (U) Negative Normal Negative [facility] Comment on above: Order Comment: Name Collection Type:: Clean-Voided Midstream Performed By: #### U A, UHCG #### [facility] [address] [place] [id number] [place] Nitrite,Urine Negative Normal Negative [facility] Comment on above: Order Comment: Name Collection Type:: Clean-Voided Midstream Performed By: #### U A, UHCG #### [place] [id number] [place] Occult Blood,Urine Negative Normal Negative [facility] Comment on above: Order Comment: Name Collection Type:: Clean-Voided Midstream Performed By: #### U A, UHCG #### [address] Protein,Urine Negative Normal Negative [facility] Comment on above: Order Comment: Name Collection Type:: Clean-Voided Midstream Performed By: #### U A, UHCG #### [address] Specificy Sumrall,Urine 1.007 Normal 1.001-1.030 [facility] Comment on above: Order Comment: Name Collection Type:: Clean-Voided Midstream Performed By: #### U A, UHCG #### [address] Urobilinogen,Urine Normal Normal Normal [facility] Comment on above: Order Comment: Name Collection Type:: Clean-Voided Midstream Performed By: #### U A, UHCG #### [address] Urine clarity by refractomet ry automatedOrdered By: Elier Jackson on 02-06-2023 Clarity Refractometry automated (U) Clear Clear [facility] Urine glucose measurement by automated test strip (mass/volume)Ordered By: Elier Jackson on 02-06-2023 Glucose Auto test strip (U) [Mass/Vol] Normal mg/dL Normal [facility] Urine hemoglobin detection b y automated test stripOrdered By: Elier Jackson on 02-06-2023 Hemoglobin Auto test strip Ql (U) Negative Negative [facility] Urine leukocyte esterase det ection by automated test stripOrdered By: Elier Jackson on 02-06-2023 Leukocyte esterase Auto test strip Ql (U) Negative Negative [facility] Urine pH measurement by auto mated test stripOrdered By: Elier Jackson on 02-06-2023 pH (U) 7.0 [pH] Normal 5.0-9.0 [facility] Comment on above: Order Comment: Name Collection Type:: Clean-Voided Midstream Performed By: #### U A, UHCG #### [address] Urobilinogen Auto test strip (U) [Mass/Vol]Ordered By: Elier Jackson on 02-06-2023 Urobilinogen (U) [Mass/Vol] Normal mg/dL Normal [facility] Alanine aminotransferase [En zymatic activity/volume] in Serum or PlasmaOrdered By: Elier Jackson on 02-05-2023 ALT [Catalytic activity/Vol] 13 U/L Normal 7-52 [facility] Comment on above: Performed By: #### H CGQNT #### [address] Albumin [Mass/volume] in Ser um or Plasma by Bromocresol green (BCG) dye binding methoOrdered By: Elier Jackson on 02-05-2023 Albumin BCG dye [Mass/Vol] 4.2 g/dL 3.5-5.7 [facility] Alkaline phosphatase [Enzyma tic activity/volume] in Serum or PlasmaOrdered By: Elier Jackson on 02-05-2023 ALP [Catalytic activity/Vol] 52 U/L Normal 34-104 [facility] Comment on above: Performed By: #### H CGQNT #### [address] Aspartate aminotransferase [ Enzymatic activity/volume] in Serum or PlasmaOrdered By: Elier Jackson on 02-05-2023 AST [Catalytic activity/Vol] 12 U/L Low 13-39 [facility] Comment on above: Performed By: #### H CGQNT #### [address] Automated basophil %Ordered By: Elier Jackson on 02-05-2023 Basophils/100 WBC (Bld) 1.4 % Normal . [facility] Comment on above: Performed By: #### H EPATIC, LIPASE, BMP, CBC #### [facility] [address] [place] [address] Automated basophil countOrde red By: Elier Jackson on 02-05-2023 Basophils (Bld) [#/Vol] 0.1 10*3/uL Normal 0.0-0.2 [facility] Comment on above: Result Comment: PERF ORMED BY: [place] [address] PATHOLOGIST [employer] ME[employer] FARNAZ ZULETA M.D. Performed By: #### H EPATIC, LIPASE, BMP, CBC #### [address] Automated blood monocyte cou ntOrdered By: Elier Jackson on 02-05-2023 Monocytes (Bld) [#/Vol] 0.7 10*3/uL Normal 0.0-0.8 [facility] Comment on above: Performed By: #### H EPATIC, LIPASE, BMP, CBC #### [address] Automated eosinophil %Ordere d By: Elier Jackson on 02-05-2023 Eosinophils/100 WBC (Bld) 1.5 % Normal . [facility] Comment on above: Performed By: #### H EPATIC, LIPASE, BMP, CBC #### [address] Automated eosinophil countOr dered By: Elier Jackson on 02-05-2023 Eosinophils (Bld) [#/Vol] 0.1 10*3/uL Normal 0.0-0.45 [facility] Comment on above: Performed By: #### H EPATIC, LIPASE, BMP, CBC #### [facility] [address] [place] [address] Automated monocyte %Ordered By: Elier Jackson on 02-05-2023 Monocytes/100 WBC (Bld) 8.4 % Normal . [facility] Comment on above: Performed By: #### H EPATIC, LIPASE, BMP, CBC #### [address] Automated neutrophil %Ordere d By: Elier Jackson on 02-05-2023 Neutrophils/100 WBC (Bld) 44.4 % Normal . [facility] Comment on above: Performed By: #### H EPATIC, LIPASE, BMP, CBC #### [facility] [address] Basic Metabolic Panelon 01-12 Creatinine Clr Calc Pharmacy 115.62 Normal [facility] Comment on above: Performed By: #### H CGQNT #### [facility] [address] GFR/1.73 sq M.predicted MDRD (S/P/Bld) [Vol rate/Area] mL/min/{1.73_m2} Normal [facility] Comment on above: Performed By: #### H CGQNT #### [facility] [address] Bilirubin.direct [Mass/volum e] in Serum or PlasmaOrdered By: Elier Jackson on 02-05-2023 Bilirubin.direct [Mass/Vol] 0.10 mg/dL 0.03-0.18 [facility] Bilirubin.total [Mass/volume ] in Serum or PlasmaOrdered By: Elier Jackson on 02-05-2023 Bilirubin [Mass/Vol] 0.3 mg/dL Normal 0.3-1.0 [facility] Comment on above: Performed By: #### H CGQNT #### [address] Calcium [Mass/volume] in Ser um or PlasmaOrdered By: Elier Jackson on 02-05-2023 Calcium [Mass/Vol] 9.2 mg/dL Normal 8.6-10.3 [facility] Comment on above: Performed By: #### H CGQNT #### [address] Carbon dioxide, total [Moles /volume] in Serum or PlasmaOrdered By: Elier Jackson on 02-05-2023 CO2 [Moles/Vol] 21.5 mmol/L Normal 21.0-31.0 [facility] Comment on above: Performed By: #### H CGQNT #### [facility] [address] [place] [address] [place] Chloride [Moles/volume] in S binu or PlasmaOrdered By: Elier Jackson on 02-05-2023 Chloride [Moles/Vol] 107 mmol/L Normal 98-107 [facility] Comment on above: Performed By: #### H CGQNT #### [address] Choriogonadotropin.beta subu nit [Units/volume] in Serum or PlasmaOrdered By: Elier Jackson on 02-05-2023 HCG.beta subunit Qn m[IU]/mL [facility] Comment on above: Approximate Approxim ate hCG Gestational Age Range (mIU/ml) (weeks)0.2-1 5-50 1-2 50-500 2-3 100-5,000 3-4 500-10,000 4-5 1,000-50,000 5-6 10,000-100,000 6-8 15,000-200,000 8-12 10,000-100,000 HCG.beta subunit Qn Negative [facility] Complete Blood Count Auto Di ffon 02-05-2023 Mean Corpuscular HGB Conc 31.8 g/dL Low 32.0-35.0 [facility] Comment on above: Performed By: #### H EPATIC, LIPASE, BMP, CBC #### [address] Monocytes/100 WBC (Bld) 17.33 % Normal 0.00-20.00 [facility] Comment on above: Performed By: #### H EPATIC, LIPASE, BMP, CBC #### [facility] [address] [place] [address] NRBC% 0.1 /100{WBC} Normal 0-0.5 [facility] Comment on above: Performed By: #### H EPATIC, LIPASE, BMP, CBC #### [facility] [address] [place] [address] Creatinine [Mass/volume] in Serum or PlasmaOrdered By: Elier Jackson on 02-05-2023 Creatinine [Mass/Vol] 0.71 mg/dL Normal 0.60-1.20 [facility] Comment on above: Performed By: #### H CGQNT #### [address] Erythrocyte distribution wid th [Ratio] by Automated countOrdered By: Elier Jackson on 02-05-2023 Erythrocyte distribution width (RBC) [Ratio] 15.9 % High 11.9-15.3 [facility] Comment on above: Performed By: #### H EPATIC, LIPASE, BMP, CBC #### [address] Erythrocytes [#/volume] in B lood by Automated countOrdered By: Elier Jackson on 02-05-2023 RBC (Bld) [#/Vol] 4.78 10*6/uL Normal 3.60-5.00 [facility] Comment on above: Performed By: #### H EPATIC, LIPASE, BMP, CBC #### [address] Glucose [Mass/volume] in Ser um or PlasmaOrdered By: Elier Velásquezjulian on 02-05-2023 Glucose [Mass/Vol] 99 mg/dL Normal 70-100 [facility] Comment on above: ADA recommended refe rence rangeRandom Glucose Reference Range is dependent on time and content of last meal. Glucose of more than 200 mg/dL in a nonstressed, ambulatory subject supports the diagnosis of Diabetes Mellitus. Result Comment: [place] om Glucose Reference Range is dependent on time and content of last meal. Glucose of more than 200 mg/dL in a nonstressed, ambulatory subject supports the diagnosis of Diabetes Mellitus. ADA recommended reference range Performed By: #### H CGQNT #### [address] HCG,Qualitative Serumon 01-12 HCG,Qualitative Serum Negative Normal [facility] Comment on above: Result Comment: PERF ORMED BY: [place] [address] PATHOLOGIST [employer] MECH[employer] FARNAZ ZULETA M.D. Performed By: #### U HCG, ADDONUAPLUS #### [address] HCG,Quantitativeon 3 HCG,Quantitative < 0.60 Normal [facility] Comment on above: Result Comment: Appr oximate Approximate hCG Gestational Age Range (mIU/ml) (weeks) 0.2-1 5-50 1-2 50-500 2-3 100-5,000 3-4 500-10,000 4-5 1,000-50,000 5-6 10,000-100,000 6-8 15,000-200,000 8-12 10,000-100,000 PERFORMED BY: [place] [address] PATHOLOGIST [employer] MECH[employer] FARNAZ ZULETA M.D. Performed By: #### H CGQNT #### [address] Hematocrit [Volume Fraction] of Blood by Automated countOrdered By: Elier Jackson on 02-05-2023 Hematocrit (Bld) [Volume fraction] 37.3 % Normal 34.0-46.4 [facility] Comment on above: Performed By: #### H EPATIC, LIPASE, BMP, CBC #### [address] Hemoglobin [Mass/volume] in BloodOrdered By: Elier Jackson on 02-05-2023 Hemoglobin (Bld) [Mass/Vol] 11.8 g/dL Normal 11.8-15.4 [facility] Comment on above: Performed By: #### H EPATIC, LIPASE, BMP, CBC #### [address] Hepatic Panelon 02-05-2023 Albumin [Mass/Vol] 4.2 g/dL Normal 3.5-5.7 [facility] Comment on above: Performed By: #### H CGQNT #### [address] Bilirubin,Indirect 0.2 mg/dL Normal [facility] Comment on above: Performed By: #### H CGQNT #### [address] Bilirubin.indirect [Mass/Vol] 0.10 mg/dL Normal 0.03-0.18 [facility] Comment on above: Performed By: #### H CGQNT #### [address] Leukocytes [#/volume] correc flo for nucleated erythrocytes in Blood by Automated counOrdered By: Elier Jackson on 02-05-2023 WBC corrected for nucl RBC Auto (Bld) [#/Vol] 8.1 10*3/uL 3.8-11.6 [facility] Leukocytes [#/volume] in Blo od by Automated countOrdered By: Elier Jackson on 02-05-2023 WBC (Bld) [#/Vol] 8.1 10*3/uL Normal 3.8-11.6 [facility] Comment on above: Performed By: #### H EPATIC, LIPASE, BMP, CBC #### [address] Lipase [Enzymatic activity/v olume] in Serum or PlasmaOrdered By: Elier Jackson on 02-05-2023 Lipase [Catalytic activity/Vol] 40.0 U/L Normal 11.0-82.0 [facility] Comment on above: Result Comment: PERF ORMED BY: [place] [address] PATHOLOGIST [employer] MECH[employer] FARNAZ ZULETA M.D. Performed By: #### H CGQNT #### [address] Lymphocytes [#/volume] in Bl ood by Automated countOrdered By: Elier Jackson on 02-05-2023 Lymphocytes (Bld) [#/Vol] 3.6 10*3/uL Normal 1.00-4.8 [facility] Comment on above: Performed By: #### H EPATIC, LIPASE, BMP, CBC #### [place] [address] [place] Lymphocytes/100 leukocytes i n Blood by Automated countOrdered By: Elier Jackson on 02-05-2023 Lymphocytes/100 WBC (Bld) 44.3 % Normal . [facility] Comment on above: Performed By: #### H EPATIC, LIPASE, BMP, CBC #### [facility] [address] MCH [Entitic mass] by Automa flo countOrdered By: Elier Jackson on 02-05-2023 MCH (RBC) [Entitic mass] 24.8 pg Normal 24.7-34.3 [facility] Comment on above: Performed By: #### H EPATIC, LIPASE, BMP, CBC #### [facility] [address] [place] [address] MCHC Auto (RBC) [Mass/Vol]Or dered By: Elier Jackson on 02-05-2023 MCHC (RBC) [Mass/Vol] 31.8 g/dL 32.0-35.0 [facility] MCV [Entitic volume] by Auto mated countOrdered By: Elier Jackson on 02-05-2023 MCV (RBC) [Entitic vol] 78.1 fL Low 80-100 [facility] Comment on above: Performed By: #### H EPATIC, LIPASE, BMP, CBC #### [facility] [address] [place] [address] Monocyte distribution width [Entitic volume] in Blood by AutomatedOrdered By: Elier Jackson on 02-05-2023 Monocyte distribution width Auto (Bld) [Entitic vol] 17.33 % 0.00-20.00 [facility] Neutrophils [#/volume] in Bl ood by Automated countOrdered By: Elier Jackson on 02-05-2023 Neutrophils (Bld) [#/Vol] 3.6 10*3/uL Normal 1.8-7.7 [facility] Comment on above: Performed By: #### H EPATIC, LIPASE, BMP, CBC #### [facility] [address] [place] [address] No Panel InformationOrdered By: Elier Jackson on 02-05-2023 Estimated GFR (CKD-EPI) > 60.0 mL/Min [facility] Creatinine Clearance (Chem 115.62 [facility] Nucleated erythrocytes [Pres ence] in Blood by Automated countOrdered By: Elier Jackson on 02-05-2023 Nucleated RBC Auto Ql (Bld) 0.1 /100{WBC} 0-0.5 [facility] Platelet mean volume [Entiti c volume] in Blood by Automated countOrdered By: Elier Jackson on 02-05-2023 Platelet mean volume (Bld) [Entitic vol] 8.0 fL Normal 6.3-10.7 [facility] Comment on above: Performed By: #### H EPATIC, LIPASE, BMP, CBC #### [facility] [address] Platelets [#/volume] in Bloo d by Automated countOrdered By: Elier Jackson on 02-05-2023 Platelets (Bld) [#/Vol] 398 10*3/uL Normal 150-450 [facility] Comment on above: Performed By: #### H EPATIC, LIPASE, BMP, CBC #### [facility] [address] Potassium [Moles/volume] in Serum or PlasmaOrdered By: Elier Jackson on 02-05-2023 Potassium [Moles/Vol] 3.4 mmol/L Low 3.5-5.1 [facility] Comment on above: Performed By: #### H CGQNT #### [address] Protein [Mass/volume] in Ser um or PlasmaOrdered By: Elier Jackson on 02-05-2023 Protein [Mass/Vol] 7.2 g/dL Normal 6.4-8.9 [facility] Comment on above: Performed By: #### H CGQNT #### [address] Serum globulin measurement b y calculation (mass/volume)Ordered By: Elier Jackson on 02-05-2023 Globulin (S) [Mass/Vol] 3.0 g/dL Normal [facility] Comment on above: Performed By: #### H CGQNT #### [address] Serum or plasma albumin/glob ulin mass ratioOrdered By: Elier Jackson on 02-05-2023 Albumin/Globulin [Mass ratio] 1.4 {ratio} Normal [facility] Comment on above: Performed By: #### H CGQNT #### [address] Serum or plasma anion gap de terminationOrdered By: Elier Jackson on 02-05-2023 Anion gap [Moles/Vol] 11.9 mmol/L Normal 6.0-15.0 [facility] Comment on above: Performed By: #### H CGQNT #### [address] Serum or plasma non-glucuron idated bilirubin measurement (mass/volume)Ordered By: Elier Jackson on 02-05-2023 Bilirubin.indirect [Mass/Vol] 0.2 mg/dL [facility] Sodium [Moles/volume] in Ser um or PlasmaOrdered By: Elier Jackson on 02-05-2023 Sodium [Moles/Vol] 137 mmol/L Normal 136-145 [facility] Comment on above: Performed By: #### H CGQNT #### [address] Urea nitrogen [Mass/volume] in Serum or PlasmaOrdered By: Elier Jackson on 02-05-2023 Urea nitrogen [Mass/Vol] 6 mg/dL Low 7-25 [facility] Comment on above: Performed By: #### H CGQNT #### [address] GENITAL CULTUREon 08-01-2022 Genital Culture, Routine Final report Abnormal [facility] Comment on above: Result Comment: Spec imen stability note: A swab transport (ie., ESwab, Amies agar gel) received by the lab more than 24 hours after collection may result in reduced recovery of Neisseria gonorrhoeae (GC). (This is informational only and may not apply to this specimen.) Performed By: #### C XGENIT #### [facility] [address] [place] [address] [address] Rod Ramirez Result 1 Comment Abnormal [facility] Comment on above: Result Comment: Beta [...] (CLSI) Performed By: #### C XGENIT #### [facility] [address] [place] [address] Dr. Rod Ramirez Result 2 Comment Normal [facility] Comment on above: Result Comment: Rout ine genital rashid. Light growth Performed By: #### C XGENIT #### [facility] [address] [place] [address] Dr. Rod Ramirez CBC AUTO DIFFon 07-28-2022 BASO # 0.0 103/ul Normal 0.0-0.1 [facility] Comment on above: Performed By: #### C BC #### [facility] [address] [place] [address] Dr. Rod Ramirez Basophils/100 WBC (Bld) 0.4 % Normal 0.2-2.0 [facility] Comment on above: Performed By: #### C BC #### [facility] [address] [place] [address] Dr. Rod Ramirez EO # 0.1 103/ul Normal 0.0-0.7 [facility] Comment on above: Performed By: #### C BC #### [facility] [address] [place] [address] Dr. Rod Ramirez Eosinophils/100 WBC (Bld) 1.5 % Normal 0.9-7.0 [facility] Comment on above: Performed By: #### C BC #### [facility] [address] [place] [address] Dr. Rod Ramirez Erythrocyte distribution width (RBC) [Ratio] 12.9 % Normal 11.0-15.0 [facility] [facility] Comment on above: Performed By: #### C BC #### [facility] [address] [place] [address] Dr. Rod Ramirez Hematocrit (Bld) [Volume fraction] 40.9 % Normal 36.0-48.0 [facility] Comment on above: Performed By: #### C BC #### [facility] [address] [place] [address] Dr. Rod Ramirez Hemoglobin (Bld) [Mass/Vol] 13.7 g/dL Normal 12.0-16.0 [facility] Comment on above: Performed By: #### C BC #### [facility] [address] [place] [address] Dr. Rod Ramirez IG # 0.02 10e3/ul Normal 0.00-0.03 [facility] Comment on above: Performed By: #### C BC #### [facility] [address] [place] [address] Dr. Rod Ramirez IG % 0.3 % Normal 0.0-0.5 [facility] Comment on above: Performed By: #### C BC #### [facility] [address] [place] [address] Dr. Rod Ramirez LYMPH # 1.6 103/ul Normal 1.2-3.8 [facility] Comment on above: Performed By: #### C BC #### [facility] [address] [place] [address] Dr. Rod Ramirez Lymphocytes/100 WBC (Bld) 23.6 % Normal 20.5-60.0 [facility] Comment on above: Performed By: #### C BC #### [facility] [address] [place] [address] Dr. Rod Ramirez MANUAL DIFF REQ NO Normal [facility] Comment on above: Performed By: #### C BC #### [facility] [address] [place] [address] Dr. Rod Ramirez MCH (RBC) [Entitic mass] 27.7 pg Normal 26.7-34.0 [facility] Comment on above: Performed By: #### C BC #### [facility] [address] [address] [address] Rod Ramirez MCHC (RBC) [Mass/Vol] 33.5 g/dL Normal 29.9-35.2 [facility] Comment on above: Performed By: #### C BC #### [facility] [address] [place] [address] Dr. Rod Ramirez MCV (RBC) [Entitic vol] 82.6 fL Normal 81.0-99.0 [facility] Comment on above: Performed By: #### C BC #### [facility] [address] [place] [address] Dr. Rod Ramirez MONO # 0.4 103/ul Normal 0.3-0.8 [facility] Comment on above: Performed By: #### C BC #### [facility] [address] [place] [address] Dr. Rod Ramirez Monocytes/100 WBC (Bld) 6.4 % Normal 1.7-12.0 [facility] Comment on above: Performed By: #### C BC #### [facility] [address] [place] [address] Dr. Rod Ramirez NEUT # 4.6 103/ul Normal 1.4-6.5 [facility] Comment on above: Performed By: #### C BC #### [facility] [address] [place] [address] Dr. Rod Ramirez Neutrophils/100 WBC (Bld) 67.8 % Normal 43.0-75.0 [facility] Comment on above: Performed By: #### C BC #### [facility] [address] [place] [address] Dr. Rod Ramirez Platelet mean volume (Bld) [Entitic vol] 9.4 fL Critically low 9.5-13.5 [facility] Comment on above: Performed By: #### C BC #### [facility] [address] [place] [address] Dr. Rod Ramirez PLT 439 103/ul Normal 150-450 [facility] Comment on above: Performed By: #### C BC #### [facility] [address] [place] [address] Dr. Rod Ramirez RBC 4.95 106/ul Normal 4.20-5.40 [facility] Comment on above: Performed By: #### C BC #### [facility] [address] [address] [address] Rod Ramirez WBC 6.7 103/ul Normal 4.0-11.0 [facility] Comment on above: Performed By: #### C BC #### [facility] [address] [address] [address] Rod Ramirez PREG HCG QUALon 07-28-2022 , QUAL Negative Normal NEGATIVE [facility] Comment on above: Performed By: #### P REG #### [facility] [address] [place] [address] Dr. Rod Ramirez PROF CHEM 8 (BAS METB)on Anion gap [Moles/Vol] 15.5 mmol/L Normal [facility] Comment on above: Performed By: #### B MP #### [facility] [address] [place] [address] Dr. Rod Ramirez Calcium [Mass/Vol] 9.0 mg/dL Normal 8.5-10.[address] [facility] Comment on above: Performed By: #### B MP #### [facility] [address] [place] [address] Dr. Rod Ramirez Chloride [Moles/Vol] 103 mmol/L Normal 98-107 [facility] Comment on above: Performed By: #### B MP #### [facility] [address] [place] [address] Dr. Rod Ramirez CO2 [Moles/Vol] 23.9 mmol/L Normal 21.0-32.0 [facility] Comment on above: Performed By: #### B MP #### [facility] [address] [place] [address] Dr. Rod Ramirez Creatinine [Mass/Vol] 0.79 mg/dL Normal 0.55-1.02 [facility] Comment on above: Performed By: #### B MP #### [facility] [address] [place] [address] Dr. Rod Ramirez EGFR-AF COLOMBIAN >60 Normal >=60 [facility] Comment on above: Performed By: #### B MP #### [facility] [address] [place] [address] Dr. Rod Ramirez EGFR-NON AF COLOMBIAN >60 Normal >=60 [facility] Comment on above: Performed By: #### B MP #### [facility] [address] [place] [address] Dr. Rod Ramirez Glucose [Mass/Vol] 108 mg/dL Critically high 74-106 [facility] Comment on above: Performed By: #### B MP #### [facility] [address] [place] [address] Dr. Rod Ramirez Potassium [Moles/Vol] 3.4 mmol/L Critically low 3.5-5.1 [facility] Comment on above: Performed By: #### B MP #### [facility] [address] [place] [address] Dr. Rod Ramirez Sodium [Moles/Vol] 139 mmol/L Normal 136-[address] [facility] Comment on above: Performed By: #### B MP #### [facility] [address] [place] [address] Dr. Rod Ramirez Urea nitrogen [Mass/Vol] 7.0 mg/dL Normal 7.0-18.0 [facility] Comment on above: Performed By: #### B MP #### [facility] [address] [place] [address] Dr. Rod Ramirez Urea nitrogen/Creatinine [Mass ratio] 8.9 mg/mg Normal [facility] Comment on above: Performed By: #### B MP #### [facility] [address] [place] [address] Dr. Rod Ramirez US PELVIS TRANSVAGon 023 [...] AUBREY BURKS Date: 2022-07-28 07:46 Normal [facility] WET PREPon 07-28-2022 CLUE CELLS NONE SEEN Normal NONE SEEN [facility] Comment on above: Performed By: #### W P #### [facility] [address] [place] [address] Dr. Rod Ramirez FUNGAL ELEMENTS NONE SEEN Normal NONE SEEN [facility] Comment on above: Performed By: #### W P #### [facility] [address] [address] [address] Rod Ramirez RBC -WET PREP RARE Abnormal NONE SEEN [facility] Comment on above: Performed By: #### W P #### [facility] [address] [place] [address] Dr. Rod Ramirez TRICHOMONAS NONE SEEN Normal NONE SEEN [facility] Comment on above: Performed By: #### W P #### [facility] [address] [place] [address] Dr. Rod Ramirez WBC- WET PREP RARE Abnormal NONE SEEN [facility] Comment on above: Performed By: #### W P #### [facility] [address] [place] [address] Dr. Rod Ramirez WET PREP BACTERIA NONE SEEN Normal NONE SEEN [facility] Comment on above: Performed By: #### W P #### [facility] [address] [address] [address] Rod Morales 04-30-2022 CNPN Telephone (HEMASA) LIVIA NOYOLA ([id number]) 1985 F Date Time Provider Department 04/30/22 GIL NI During your visit today, we recorded the following information about you: Tabyb Steele Ma 04/30/2022 2:25 PM Signed CMP if needed. Tabby Steele Ma Allergies As of Date: 04/30/2022 Noted Allergy Reaction MORPHINE 06/20/2018 14 - Other: See Comments Comments: Spasms Date Reviewed: 04/09/2022 Reviewed by: Gloria Rivera RN - Fully Assessed Reason for Visit: Lab Orders [6846] Primary Visit Diagnosis:Iron deficiency anemia due to chronic blood loss [D50.0] Order(s):[facility] Order #: [id number] FUTURE Prescriptions as of 05/03/2022 - ALPRAZolam [...] Status:Closed by GIL NI on 05/03/22 Normal [facility] Anisocytosis LM Ql (Bld)Orde red By: Yevgeniy Cabrera on 04-28-2022 Anisocytosis Ql (Bld) Marked [facility] Automated erythrocytes count in urine sediment (number/area)Ordered By: Yevgeniy Cabrera on 04-28-2022 RBC Auto (Urine sed) [#/Area] None seen [HPF] 0-4 [facility] Automated leukocytes count i n urine sediment (number/area)Ordered By: Yevgeniy Cabrera on 04-28-2022 WBC Auto (Urine sed) [#/Area] 3-4 [HPF] 0-4 [facility] Basophils Auto (Bld) [#/Vol] Ordered By: Yevgeniy Cabrera on 04-28-2022 Basophils (Bld) [#/Vol] 0.1 10*3/uL 0.0-0.2 [facility] Basophils/100 WBC Auto (Bld) Ordered By: Yevgeniy Cabrera on 04-28-2022 Basophils/100 WBC (Bld) 1.0 % . [facility] Bilirubin Test strip Ql (U)O rdered By: Yevgeniy Cabrera on 04-28-2022 Bilirubin Ql (U) Negative Negative [facility] Body fluid albumin measureme nt (mass/volume)Ordered By: Yevgeniy Cabrera on 04-28-2022 Albumin (Body fld) [Mass/Vol] 3.8 g/dL 3.2-5.5 [facility] Color Auto (U)Ordered By: Marcus Cabrera on 04-28-2022 Color (U) Yellow Yellow [facility] Creatinine and Glomerular fi ltration rate.predicted panel (S/P/Bld)Ordered By: Yevgeniy Cabrera on 04-28-2022 Creatinine [Mass/Vol] 0.62 mg/dL 0.44-1.03 [facility] Eosinophils Auto (Bld) [#/Vo l]Ordered By: Yevgeniy Cabrera on 04-28-2022 Eosinophils (Bld) [#/Vol] 0.1 10*3/uL 0.0-0.45 [facility] Eosinophils/100 WBC Auto (Bl d)Ordered By: Yevgeniy Cabrera on 04-28-2022 Eosinophils/100 WBC (Bld) 1.0 % . [facility] Erythrocyte distribution wid th Auto (RBC) [Ratio]Ordered By: Yevgeniy Cabrera on 04-28-2022 Erythrocyte distribution width (RBC) [Ratio] 27.1 % 11.9-15.3 [facility] Estimated glomerular filtrat ion rate (GFR) non- AmericanOrdered By: Yevgeniy Cabrera on 04-28-2022 GFR/1.73 sq M.predicted among non-blacks MDRD (S/P/Bld) [Vol rate/Area] > 60 mL/Min [facility] Globulin Calc (S) [Mass/Vol] Ordered By: Yevgeniy Cabrera on 04-28-2022 Globulin (S) [Mass/Vol] 3.1 g/dL [facility] HCG ( test) IA.rapi d Ql (U)Ordered By: Yevgeniy Cabrera on 04-28-2022 HCG ( test) Ql (U) Negative [facility] Hematocrit Auto (Bld) [Volum e fraction]Ordered By: Yevgeniy Cabrera on 04-28-2022 Hematocrit (Bld) [Volume fraction] 39.4 % 34.0-46.4 [facility] Hemoglobin [Mass/volume] in BloodOrdered By: Yevgeniy Cabrera on 04-28-2022 Hemoglobin (Bld) [Mass/Vol] 12.3 g/dL 11.8-15.4 [facility] Hypochromia LM Ql (Bld)Order ed By: Yevgeniy Cabrera on 04-28-2022 Hypochromia Ql (Bld) Slight [facility] Ketones Auto test strip (U) [Mass/Vol]Ordered By: Yevgeniy Cabrera on 04-28-2022 Ketones (U) [Mass/Vol] Negative Negative Fi [facility] Laboratory - Hematology and Cell countsOrdered By: Yevgeniy Cabrera on 04-28-2022 Nucleated RBC/100 WBC (Bld) [Ratio] 0.0 % 0-0.5 [facility] - UrinalysisOrder ed By: Yevgeniy aCbrera on 04-28-2022 Hyaline casts LM Ql (Urine sed) None seen [LPF] 0-8 [facility] Leukocytes [#/volume] in Blo od by Automated countOrdered By: Yevgeniy Cabrera on 04-28-2022 WBC (Bld) [#/Vol] 7.9 10*3/uL 4.5-11.0 [facility] Lymphocytes Auto (Bld) [#/Vo l]Ordered By: Yevgeniy Cabrera on 04-28-2022 Lymphocytes (Bld) [#/Vol] 2.3 10*3/uL 1.00-4.8 [facility] Lymphocytes/100 WBC Auto (Bl d)Ordered By: Yevgeniy Cabrera on 04-28-2022 Lymphocytes/100 WBC (Bld) 28.9 % . [facility] MCH Auto (RBC) [Entitic mass ]Ordered By: Yevgeniy Cabrera on 04-28-2022 MCH (RBC) [Entitic mass] 23.3 pg 24.7-34.3 [facility] MCHC Auto (RBC) [Mass/Vol]Or dered By: Yevgeniy Cabrera on 04-28-2022 MCHC (RBC) [Mass/Vol] 31.3 g/dL 32.0-35.0 [facility] MCV Auto (RBC) [Entitic vol] Ordered By: Yevgeniy Cabrera on 04-28-2022 MCV (RBC) [Entitic vol] 74.5 fL 80-100 [facility] Monocytes Auto (Bld) [#/Vol] Ordered By: Yevgeniy Cabrera on 04-28-2022 Monocytes (Bld) [#/Vol] 0.4 10*3/uL 0.0-0.8 [facility] Monocytes/100 WBC Auto (Bld) Ordered By: Yevgeniy Cabrera on 04-28-2022 Monocytes/100 WBC (Bld) 4.5 % . [facility] Neutrophils Auto (Bld) [#/Vo l]Ordered By: Yevgeniy Cabrera on 04-28-2022 Neutrophils (Bld) [#/Vol] 5.1 10*3/uL 1.8-7.7 [facility] Neutrophils/100 WBC Auto (Bl d)Ordered By: Yevgneiy Cabrera on 04-28-2022 Neutrophils/100 WBC (Bld) 64.6 % . [facility] Nitrite Test strip Ql (U)Ord ered By: Yevgeniy Cabrera on 04-28-2022 Nitrite Ql (U) Negative Negative [facility] No Panel InformationOrdered By: Yevgeniy Cabrera on 04-28-2022 Estimated GFR () > 60 mL/Min [facility] Comment on above: GFR estimated refere nce range: According to KDOQI guidelines, <60 ml/min/1.73m2 is sufficient to diagnose a patient with chronic kidney disease. Pharmacy Creatinine Clearance (Chem 132.36 [facility] Slides for Pathologist Review Ordered path review [facility] Ovalocyte detectionOrdered B y: Yevgeniy Cabrera on 04-28-2022 Ovalocytes LM Ql (Bld) Moderate Fi [facility] Platelet adequacy [Presence] in Blood by Light microscopyOrdered By: Yevgeniy Cabrera on 04-28-2022 Platelets LM Ql (Bld) Normal Normal [facility] Platelet mean volume Auto (B ld) [Entitic vol]Ordered By: Yevgeniy Cabrera on 04-28-2022 Platelet mean volume (Bld) [Entitic vol] 7.4 fL 6.3-10.7 [facility] Platelet morphology finding [Identifier] in BloodOrdered By: Yevgeniy Cabrera on 04-28-2022 Platelet morphology finding Nom (Bld) Normal Normal [facility] Platelets Auto (Bld) [#/Vol] Ordered By: Yevgeniy Cabrera on 04-28-2022 Platelets (Bld) [#/Vol] 329 10*3/uL 150-450 [facility] Poikilocytosis [Presence] in Blood by Light microscopyOrdered By: Yevgeniy Cabrera on 04-28-2022 Poikilocytosis LM Ql (Bld) Moderate [facility] Polychromasia [Presence] in Blood by Light microscopyOrdered By: Yevgeniy Cabrera on 04-28-2022 Polychromasia LM Ql (Bld) Slight [facility] Protein Auto test strip (U) [Mass/Vol]Ordered By: Yevgeniy Cabrera on 04-28-2022 Protein (U) [Mass/Vol] Negative Negative [facility] Protein [Mass/volume] in Ser um or PlasmaOrdered By: Yevgeniy Cabrera on 04-28-2022 Protein [Mass/Vol] 6.9 g/dL 6.1-7.9 [facility] RBC Auto (Bld) [#/Vol]Ordere d By: Yevgeniy Cabrera on 04-28-2022 RBC (Bld) [#/Vol] 5.29 10*6/uL 3.60-5.00 [facility] RBC morphologyOrdered By: Marcus Cabrera on 04-28-2022 RBC morphology finding Nom (Bld) N/A [facility] Serum or plasma alanine syed otransferase measurement without P-5'-P (enzymatic activiOrdered By: Yevgeniy Cabrera on 04-28-2022 ALT No additional P-5'-P [Catalytic activity/Vol] 43 U/L 10-60 [facility] Serum or plasma albumin/glob ulin mass ratioOrdered By: Yevgeniy Cabrera on 04-28-2022 Albumin/Globulin [Mass ratio] 1.2 {ratio} [facility] Serum or plasma alkaline zeeshan sphatase measurement (enzymatic activity/volume)Ordered By: Yevgeniy Cabrera on 04-28-2022 ALP [Catalytic activity/Vol] 65 U/L 32-92 [facility] Serum or plasma anion gap de terminationOrdered By: Yevgeniy Cabrera on 04-28-2022 Anion gap [Moles/Vol] 14.6 mmol/L 6.0-15.0 [facility] Serum or plasma aspartate am inotransferase measurement (enzymatic activity/volume)Ordered By: Yevgeniy Cabrera on 04-28-2022 AST [Catalytic activity/Vol] 26 U/L 10-42 [facility] Serum or plasma calcium donaldo urement (mass/volume)Ordered By: Yevgeniy Cabrera on 04-28-2022 Calcium [Mass/Vol] 9.3 mg/dL 8.2-10.2 [facility] Serum or plasma chloride claudia surement (moles/volume)Ordered By: Yevgeniy Cabrera on 04-28-2022 Chloride [Moles/Vol] 105 mmol/L 95-114 [facility] Serum or plasma glucose donaldo urement (mass/volume)Ordered By: Yevgeniy Cabrera on 04-28-2022 Glucose [Mass/Vol] 112 mg/dL 70-100 [facility] Comment on above: ADA recommended refe rence rangeRandom Glucose Reference Range is dependent on time and content of last meal. Glucose of more than 200 mg/dL in a nonstressed, ambulatory subject supports the diagnosis of Diabetes Mellitus. Serum or plasma potassium me asurement (moles/volume)Ordered By: Yevgeniy Cabrera on 04-28-2022 Potassium [Moles/Vol] 3.7 mmol/L 3.5-5.1 [facility] Serum or plasma sodium measu rement (moles/volume)Ordered By: Yevgeniy Cabrera on 04-28-2022 Sodium [Moles/Vol] 137 mmol/L 136-146 [facility] Serum or plasma total biliru bin measurement (mass/volume)Ordered By: Yevgeniy Cabrera on 04-28-2022 Bilirubin [Mass/Vol] 0.5 mg/dL 0.3-1.2 [facility] Serum or plasma total carbon dioxide measurement (moles/volume)Ordered By: Yevgeniy Cabrera on 04-28-2022 CO2 [Moles/Vol] 21.1 mmol/L 22.0-30.0 [facility] Serum or plasma urea nitroge n measurement (mass/volume)Ordered By: Yevgeniy Cabrera on 04-28-2022 Urea nitrogen [Mass/Vol] 5 mg/dL 9-23 [facility] Specific gravity Auto test s trip (U) [Rel density]Ordered By: Yevgeniy Cabrera on 04-28-2022 Specific gravity (U) [Rel density] 1.005 1.001-1.030 [facility] Squamous epithelial cells de tection in urine sediment by light microscopyOrdered By: Yevgeniy Cabrera on 04-28-2022 Epithelial cells.squamous LM Ql (Urine sed) 0-1 [HPF] 0-2 [facility] Teardrop cell detectionOrder ed By: Yevgeniy Cabrera on 04-28-2022 Dacrocytes LM Ql (Bld) [facility] U[facility] bacteria detection by automated methodOrdered By: Yevgeniy Cabrera on 04-28-2022 Bacteria Auto Ql (U) None seen None Seen [facility] Urine clarity by refractomet ry automatedOrdered By: Yevgeniy Cabrera on 04-28-2022 Clarity Refractometry automated (U) Cloudy Clear [facility] Urine glucose measurement by automated test strip (mass/volume)Ordered By: Yevgeniy Cabrera on 04-28-2022 Glucose Auto test strip (U) [Mass/Vol] Normal mg/dL Normal [facility] Urine hemoglobin detection b y automated test stripOrdered By: Yevgeniy Cabrera on 04-28-2022 Hemoglobin Auto test strip Ql (U) Negative Negative [facility] Urine leukocyte esterase det ection by automated test stripOrdered By: Yevgeniy Cabrera on 04-28-2022 Leukocyte esterase Auto test strip Ql (U) 1+ Negative [facility] Urobilinogen Auto test strip (U) [Mass/Vol]Ordered By: Yevgeniy Cabrera on 04-28-2022 Urobilinogen (U) [Mass/Vol] Normal mg/dL Normal [facility] pH Auto test strip (U)Ordere d By: Yevgeniy Cabrera on 04-28-2022 pH (U) 6.5 [pH] 5.0-9.0 [facility] ALLIED HEALTHon 04-09-2022 ALLIED HEALTH HNO ID: [id number] Author: Donald Villegas Therapist Service: ? Author Type: 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 [...] date. Will follow up then. 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 Allergies As of Date: 03/19/2022 Noted Allergy Reaction MORPHINE 06/20/2018 14 - Other: See Comments Comments: Spasms Date Reviewed: 03/10/2022 Reviewed by: Gil Ni APRN.[facility] - Fully Assessed Reason for [...] by SPARKLE BEARD on 03/19/22 [facility] 03-15-2022 [facility] Telephone (HEMASA) LIVIA NOYOLA ([id number]) 1985 F Date Time Provider Department 03/15/22 SHARON GALAVIZ During your visit today, we recorded the following information about you: MARY Narvaez 03/15/2022 12:06 PM Signed Patient appears on the First Time Treatment List for a non-oncology treatment. No psychosocial assessment is indicated. 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 Reason for Visit: Social [...] iron [K90.9] 10/27/2020 Encounter Status:Closed by SHARON GALAVIZ on 03/15/22 Normal [facility] CBC W Auto Differential pane l (Bld)on 03-10-2022 Basophils (Bld) [#/Vol] 0.05 10*3/uL Normal <0.11 [facility] Comment on above: Order Comment: Speci men Type: BLOOD SPECIMEN Ordering Facility: [facility] Address: [address] [place] [address] Performed By: #### 5 7021-8 #### [facility] CLIA [id number] [address] [place] [id number] Basophils/100 WBC (Bld) 0.8 % Normal C [facility] Comment on above: Order Comment: Speci men Type: BLOOD SPECIMEN Ordering Facility: [facility] Address: [address] [place] [address] Performed By: #### 5 7021-8 #### [facility] CLIA [id number] [address] [place] [id number] Differential cell count method Nom (Bld) Auto Normal [facility] Comment on above: Order Comment: Speci men Type: BLOOD SPECIMEN Ordering Facility: [facility] Address: [address] [address] Performed By: #### 5 7021-8 #### [facility] CLIA [id number] [address] [place] [id number] Eosinophils (Bld) [#/Vol] 0.15 10*3/uL Normal <0.46 [facility] Comment on above: Order Comment: Speci men Type: BLOOD SPECIMEN Ordering Facility: [facility] Address: [address] [place] [address] Performed By: #### 5 7021-8 #### [facility] CLIA [id number] [address] [place] [address] 00856 Eosinophils/100 WBC (Bld) 2.3 % Normal [facility] Comment on above: Order Comment: Speci men Type: BLOOD SPECIMEN Ordering Facility: [facility] Address: [address] [place] [address] Performed By: #### 5 7021-8 #### [facility] CLIA [id number] [address] [place] [address] 20710 Erythrocyte distribution width (RBC) [Ratio] 17.4 % High 11.5-15.0 [facility] Comment on above: Order Comment: Speci men Type: BLOOD SPECIMEN Ordering Facility: [facility] Address: [address] [place] [address] Performed By: #### 5 7021-8 #### [facility] CLIA [id number] [address] [place] [address] 32779 Hematocrit (Bld) [Volume fraction] 29.4 % Low 36.0-46.0 [facility] Comment on above: Order Comment: Speci men Type: BLOOD SPECIMEN Ordering Facility: [facility] Address: [address] [place] [address] Performed By: #### 5 7021-8 #### [facility] CLIA [id number] [address] [place] [address] 84103 Hemoglobin (Bld) [Mass/Vol] 8.5 g/dL Low 11.5-15.5 [facility] Comment on above: Order Comment: Speci men Type: BLOOD SPECIMEN Ordering Facility: [facility] Address: [address] [place] [address] Performed By: #### 5 7021-8 #### [facility] CLIA [id number] [address] [place] [address] 71633 IMMATURE GRAN % 0.3 % Normal [facility] Comment on above: Order Comment: Speci men Type: BLOOD SPECIMEN Ordering Facility: [facility] Address: [address] [place] [address] Performed By: #### 5 7021-8 #### [facility] CLIA [id number] [address] [place] [address] 36540 IMMATURE GRAN ABS <0.03 Normal <0.10 [facility] Comment on above: Order Comment: Speci men Type: BLOOD SPECIMEN Ordering Facility: [facility] Address: [address] [place] [address] Performed By: #### 5 7021-8 #### [facility] CLIA [id number] [address] [place] [address] 94098 Lymphocytes (Bld) [#/Vol] 3.62 10*3/uL Normal 1.00-4.00 [facility] Comment on above: Order Comment: Speci men Type: BLOOD SPECIMEN Ordering Facility: [facility] Address: [address] [place] [address] Performed By: #### 5 7021-8 #### [facility] CLIA [id number] [address] [place] [address] 58377 Lymphocytes/100 WBC (Bld) 54.8 % Normal [facility] Comment on above: Order Comment: Speci men Type: BLOOD SPECIMEN Ordering Facility: [facility] Address: [address] [place] [address] Performed By: #### 5 7021-8 #### [facility] CLIA [id number] [address] [place] [address] 45948 MCH (RBC) [Entitic mass] 20.3 pg Low 26.0-34.0 [facility] Comment on above: Order Comment: Speci men Type: BLOOD SPECIMEN Ordering Facility: [facility] Address: [address] [place] [address] Performed By: #### 5 7021-8 #### [facility] CLIA [id number] [address] [place] [address] 06098 MCHC (RBC) [Mass/Vol] 28.9 g/dL Low 30.5-36.0 [facility] Comment on above: Order Comment: Speci men Type: BLOOD SPECIMEN Ordering Facility: [facility] Address: [address] [place] [address] Performed By: #### 5 7021-8 #### [facility] CLIA [id number] [address] [place] [address] 34622 MCV (RBC) [Entitic vol] 70.3 fL Low 80.0-100.0 C [facility] Comment on above: Order Comment: Speci men Type: BLOOD SPECIMEN Ordering Facility: [facility] Address: [address] [place] [address] Performed By: #### 5 7021-8 #### [facility] CLIA [id number] [address] [place] [address] 18672 Monocytes (Bld) [#/Vol] 0.38 10*3/uL Normal <0.87 [facility] Comment on above: Order Comment: Speci men Type: BLOOD SPECIMEN Ordering Facility: [facility] Address: [address] [place] [address] Performed By: #### 5 7021-8 #### [facility] CLIA [id number] [address] [place] [address] 78396 Monocytes/100 WBC (Bld) 5.7 % Normal C [facility] Comment on above: Order Comment: Speci men Type: BLOOD SPECIMEN Ordering Facility: [facility] Address: [address] Performed By: #### 5 7021-8 #### [facility] CLIA [id number] [address] [place] [address] 38278 Neutrophils (Bld) [#/Vol] 2.39 10*3/uL Normal 1.45-7.50 [facility] Comment on above: Order Comment: Speci men Type: BLOOD SPECIMEN Ordering Facility: [facility] Address: [address] [place] [address] Performed By: #### 5 7021-8 #### [facility] CLIA [id number] [address] [place] [address] 94037 Neutrophils/100 WBC (Bld) 36.1 % Normal [facility] Comment on above: Order Comment: Speci men Type: BLOOD SPECIMEN Ordering Facility: [facility] Address: [address] [place] [address] Performed By: #### 5 7021-8 #### [facility] CLIA [id number] [address] [place] [address] 41247 Nucleated RBC (Bld) [#/Vol] 10*3/uL Normal <0.01 [facility] Comment on above: Order Comment: Speci men Type: BLOOD SPECIMEN Ordering Facility: [facility] Address: [address] [place], [place] [address] Performed By: #### 5 7021-8 #### [facility] CLIA [id number] [address] [place] [address] 61237 Nucleated RBC/100 WBC (Bld) [Ratio] 0.0 /100 WBC Normal [facility] Comment on above: Order Comment: Speci men Type: BLOOD SPECIMEN Ordering Facility: [facility] Address: [address] [place] [address] Performed By: #### 5 7021-8 #### [facility] CLIA [id number] [address] [place] [address] 56616 Platelet mean volume (Bld) [Entitic vol] 8.8 fL Low 9.0-12.7 [facility] Comment on above: Order Comment: Speci men Type: BLOOD SPECIMEN Ordering Facility: [facility] Address: [address] [place] [address] Performed By: #### 5 7021-8 #### [facility] CLIA [id number] [address] [place] [address] 32852 Platelets (Bld) [#/Vol] 419 10*3/uL High 150-400 [facility] Comment on above: Order Comment: Speci men Type: BLOOD SPECIMEN Ordering Facility: [facility] Address: [address] [place] [address] Performed By: #### 5 7021-8 #### [facility] CLIA [id number] [address] [place] [address] 77791 RBC (Bld) [#/Vol] 4.18 10*6/uL Normal 3.90-5.20 [facility] Comment on above: Order Comment: Speci men Type: BLOOD SPECIMEN Ordering Facility: [facility] Address: [address] [place] [address] Performed By: #### 5 7021-8 #### [facility] CLIA [id number] [address] [place] [address] 47771 WBC (Bld) [#/Vol] 6.61 10*3/uL Normal 3.70-11.00 [facility] Comment on above: Order Comment: Speci men Type: BLOOD SPECIMEN Ordering Facility: [facility] Address: [address] [place] [address] Performed By: #### 5 7021-8 #### [facility] CLIA [id number] [address] [place] [address] 61638 CNOVSPon 03-10-2022 CNOVSP Visit (SP) Office ([place]) LIVIA NOYOLA ([id number]) 1985 F Date Time Provider Department 03/10/22 2:00 PM GIL NI During your visit today, we recorded the following information about you: Temperature Pulse Respiration Blood pressure 97.9 degrees 95/minute 16/minute 130/75 Weight Height 83.4 kg 1.651 m iGl Ni APRN.[employer]GER 03/10/2022 2:25 PM Signed NAME: Livia Noyola CLINIC NO.: [id number] DATE OF SERVICE: March 10, 2022 (Elements [...] 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 Recent laboratories from [facility] October 04, 2020 show hemoglobin of 11.6 [...] to chronic (more content not included)... Normal [facility] Comprehensive metabolic 2000 panelon 03-10-2022 Albumin [Mass/Vol] 4.0 g/dL Normal 3.9-4.9 [facility] Comment on above: Order Comment: Speci men Type: BLOOD SPECIMEN Ordering Facility: [facility] Address: [address] [address] Performed By: #### 2 4323-8 #### [facility] CLIA [id number] [address] [place] [address] 73069 ALP [Catalytic activity/Vol] 55 U/L Normal 34-123 [facility] Comment on above: Order Comment: Speci men Type: BLOOD SPECIMEN Ordering Facility: [facility] Address: [address] [address] Performed By: #### 2 4323-8 #### [facility] CLIA [id number] [address] [place] [address] 96424 ALT [Catalytic activity/Vol] 12 U/L Normal 7-38 [facility] Comment on above: Order Comment: Speci men Type: BLOOD SPECIMEN Ordering Facility: [facility] Address: [address] [address] Performed By: #### 2 4323-8 #### [facility] CLIA [id number] [address] [place] [address] 01026 Anion gap [Moles/Vol] 9 mmol/L Normal 9-18 [facility] Comment on above: Order Comment: Speci men Type: BLOOD SPECIMEN Ordering Facility: [facility] Address: [address] [place], [place] [address] Performed By: #### 2 4323-8 #### [facility] CLIA [id number] [address] [place] [address] AST [Catalytic activity/Vol] 14 U/L Normal 13-35 [facility] Comment on above: Order Comment: Speci men Type: BLOOD SPECIMEN Ordering Facility: [facility] Address: [address] [place] [address] Performed By: #### 2 4323-8 #### [facility] CLIA [id number] [address] [place] [address] 55811 Bilirubin [Mass/Vol] 0.3 mg/dL Normal 0.2-1.3 [facility] Comment on above: Order Comment: Speci men Type: BLOOD SPECIMEN Ordering Facility: [facility] Address: [address] [place] [address] Performed By: #### 2 4323-8 #### [facility] CLIA [id number] [address] [place] [address] 11606 Calcium [Mass/Vol] 8.8 mg/dL Normal 8.5-10.2 [facility] Comment on above: Order Comment: Speci men Type: BLOOD SPECIMEN Ordering Facility: [facility] Address: [address] Performed By: #### 2 4323-8 #### [facility] CLIA [id number] [address] [place] [address] 35720 Chloride [Moles/Vol] 105 mmol/L Normal 97-105 [facility] Comment on above: Order Comment: Speci men Type: BLOOD SPECIMEN Ordering Facility: [facility] Address: [address] [place], [place] [address] Performed By: #### 2 4323-8 #### [facility] CLIA [id number] [address] [place] [address] CO2 [Moles/Vol] 24 mmol/L Normal 22-30 [facility] Comment on above: Order Comment: Speci men Type: BLOOD SPECIMEN Ordering Facility: [facility] Address: [address] [place] [address] Performed By: #### 2 4323-8 #### [facility] CLIA [id number] [address] [place] [address] 40935 Creatinine [Mass/Vol] 0.65 mg/dL Normal 0.58-0.96 [facility] Comment on above: Order Comment: Speci men Type: BLOOD SPECIMEN Ordering Facility: [facility] Address: [address] [place] [address] Performed By: #### 2 4323-8 #### [facility] CLIA [id number] [address] [place] [address] 09321 ESTIMATED GLOMERULAR FILTRATION RATE 118 mL/min/1.73m??? Normal >=60 [facility] Comment on above: Order Comment: Speci men Type: BLOOD SPECIMEN Ordering Facility: [facility] Address: [address] [place] [address] Result Comment: Shelley mated Glomerular Filtration Rate [...] GFR. Performed By: #### 2 4323-8 #### [facility] CLIA [id number] [address] [place] [address] 29685 Glucose [Mass/Vol] 109 mg/dL High 74-99 [facility] Comment on above: Order Comment: Speci men Type: BLOOD SPECIMEN Ordering Facility: [facility] Address: [address] [place] [address] Result Comment: The [place] [employer] (ADA) provides guidance for cutoff [...] Standards of Medical Care in Diabetes 2016, [place] [employer]. Diabetes Care. 2016.39(Suppl 1). Performed By: #### 2 4323-8 #### [facility] CLIA [id number] [address] [place] [address] 89461 Potassium [Moles/Vol] 3.4 mmol/L Low 3.7-5.1 [facility] Comment on above: Order Comment: Speci men Type: BLOOD SPECIMEN Ordering Facility: [facility] Address: [address] [place] [address] Performed By: #### 2 4323-8 #### [facility] CLIA [id number] [address] [place] [address] 33000 Protein [Mass/Vol] 6.5 g/dL Normal 6.3-8.0 [facility] Comment on above: Order Comment: Speci men Type: BLOOD SPECIMEN Ordering Facility: [facility] Address: [address] [address] Performed By: #### 2 4323-8 #### [facility] CLIA [id number] [address] [place] [address] 01981 Sodium [Moles/Vol] 138 mmol/L Normal 136-144 [facility] Comment on above: Order Comment: Speci men Type: BLOOD SPECIMEN Ordering Facility: [facility] Address: [address] [address] Performed By: #### 2 4323-8 #### [facility] CLIA [id number] [address] [place] [address] Urea nitrogen [Mass/Vol] 8 mg/dL Normal 7-21 [facility] Comment on above: Order Comment: Speci men Type: BLOOD SPECIMEN Ordering Facility: [facility] Address: [address] [place] [address] Performed By: #### 2 4323-8 #### [facility] CLIA [id number] [address] [place] [address] Ferritin SerPl-mCncon 2021 Ferritin [Mass/Vol] 5.4 ng/mL Low 14.7-205.1 [facility] Comment on above: Order Comment: Speci men Type: BLOOD SPECIMEN Ordering Facility: [facility] Address: [address] [place] [address] Performed By: #### 5 0190-8, 9, 2283-8, 6-4 #### [facility] CLIA [id number] [address] [place] [address] [place] Folate SerPl-mCncon 03-10-20 Folate [Mass/Vol] 8.7 ng/mL Normal >4.7 [facility] Comment on above: Order Comment: Speci men Type: BLOOD SPECIMEN Ordering Facility: [facility] Address: [address] [place] [address] Performed By: #### 5 0190-8, 9, 2283-8, 6-4 #### [facility] CLIA [id number] [address] [place] [address] [place] Iron and Iron binding capaci ty panelon 03-10-2022 Iron [Mass/Vol] 17 ug/dL Low 41-186 [facility] Comment on above: Order Comment: Speci men Type: BLOOD SPECIMEN Ordering Facility: [facility] Address: [address] [place] [address] Performed By: #### 5 0190-8, 9, 8, 2275-4 #### [facility] CLIA [id number] [address] [place] [address] [place] Iron binding capacity [Mass/Vol] 422 ug/dL High 232-386 [facility] Comment on above: Order Comment: Speci men Type: BLOOD SPECIMEN Ordering Facility: [facility] Address: [address] [place] [address] Performed By: #### 5 0190-8, 9, 8, 2275-4 #### [facility] CLIA [id number] [address] [place] [address] [place] Iron/TIBC [Molar ratio] 4.0 % Low 15.0-57.0 C [facility] Comment on above: Order Comment: Speci men Type: BLOOD SPECIMEN Ordering Facility: [facility] Address: [address] [place] [address] Performed By: #### 5 0190-8, 9, 8, 4 #### [facility] CLIA [id number] [address] [place] [address] [place] Vit B12 [facility] 09-28-2 022 Cobalamin (Vitamin B12) [Mass/Vol] 367 pg/mL Normal 232-1245 [facility] Comment on above: Order Comment: Speci men Type: BLOOD SPECIMEN Ordering Facility: [facility] Address: [address] [place] [address] Performed By: #### 5 0190-8, 9, 2284-01, 4 #### [facility] CLIA [id number] [address] [place] [address] [place] Andrew 02-18-2022 FRIDA Telephone ([place]) LIVIA NOYOLA ([id number]) 1985 F Date Time Provider Department 02/18/22 [...] [D50.0] Order(s):CBC + DIFF [SQCBCDIF] Order #: [id number] FUTURE COMP METABOLIC PANEL [SQCMP] Order #: [id number] FUTURE IRON + TIBC [SQIRON] Order #: [id number] FUTURE FERRITIN BLD [SQFERR] Order #: [id number] FUTURE VITAMIN B12 BLOOD [SQB12] Order #: [id number] FUTURE FOLATE SERUM [SQSERFOL] Order #: [id number] FUTURE Prescriptions as of 02/20/2022 - ALPRAZolam [...] Status:Closed by [place] on 02/20/22 Normal [facility] Basophils Auto (Bld) [#/Vol] Ordered By: Jennifer Duran on 02-12-2022 Basophils (Bld) [#/Vol] 0.1 10*3/uL 0.0-0.2 [facility] Basophils/100 WBC Auto (Bld) Ordered By: Jennifer Duran on 02-12-2022 Basophils/100 WBC (Bld) 1.0 % . [facility] Blood anisocytosis detection Ordered By: Jennifer Duran on 02-12-2022 Anisocytosis Ql (Bld) Moderate [facility] Blood hemoglobin measurement (mass/volume)Ordered By: Jennifer Duran on 02-12-2022 Hemoglobin (Bld) [Mass/Vol] 8.5 g/dL 11.8-15.4 [facility] Blood leukocytes automated c ount (number/volume)Ordered By: Jennifer Duran on 02-12-2022 WBC (Bld) [#/Vol] 5.9 10*3/uL 4.5-11.0 [facility] Body fluid albumin measureme nt (mass/volume)Ordered By: Jennifer Duran on 02-12-2022 Albumin (Body fld) [Mass/Vol] 3.7 g/dL 3.2-5.[address] [facility] [address] biopsyOrdered By: Jennifer avila on 02-12-2022 Transferrin [Mass/Vol] 356 mg/dL 180-380 [facility] Creatinine and Glomerular fi ltration rate.predicted panel (S/P/Bld)Ordered By: Jennifer Duran on 02-12-2022 Creatinine [Mass/Vol] 0.72 mg/dL 0.44-1.03 [facility] Eosinophils Auto (Bld) [#/Vo l]Ordered By: Jennifer Duran on 02-12-2022 Eosinophils (Bld) [#/Vol] 0.1 10*3/uL 0.0-0.45 [facility] Eosinophils/100 WBC Auto (Bl d)Ordered By: Jennifer Duran on 02-12-2022 Eosinophils/100 WBC (Bld) 2.2 % . [facility] Erythrocyte distribution wid th Auto (RBC) [Ratio]Ordered By: Jennifer Duran on 02-12-2022 Erythrocyte distribution width (RBC) [Ratio] 17.3 % 11.9-15.3 [facility] Estimated glomerular filtrat ion rate (GFR) non- AmericanOrdered By: Jennifer Duran on 02-12-2022 GFR/1.73 sq M.predicted among non-blacks MDRD (S/P/Bld) [Vol rate/Area] > 60 mL/Min [facility] Ferritin [Mass/volume] in Se rum or PlasmaOrdered By: Jennifer Duran on 02-12-2022 Ferritin [Mass/Vol] 5.1 ng/mL 11-306.8 [facility] Globulin Calc (S) [Mass/Vol] Ordered By: Jennifer Duran on 02-12-2022 Globulin (S) [Mass/Vol] 2.9 g/dL [facility] Hematocrit Auto (Bld) [Volum e fraction]Ordered By: Jennifer Duran on 02-12-2022 Hematocrit (Bld) [Volume fraction] 27.9 % 34.0-46.4 [facility] Hypochromia detectionOrdered By: Jennifer Duran on 02-12-2022 Hypochromia Ql (Bld) [facility] Iron [Mass/volume] in Serum or PlasmaOrdered By: Jennifer Duran on 02-12-2022 Iron [Mass/Vol] 11 ug/dL 40-150 [facility] Iron binding capacity [Mass/ volume] in Serum or PlasmaOrdered By: Jennifer Duran on 02-12-2022 Iron binding capacity [Mass/Vol] 498 ug/dL 255-450 [facility] Iron saturation [Mass Fracti on] in Serum or PlasmaOrdered By: Jennifer Duran on 02-12-2022 Iron saturation [Mass fraction] 2.0 % 20-50 [facility] Laboratory - Hematology and Cell countsOrdered By: Jennifer Duran on 02-12-2022 Nucleated RBC/100 WBC (Bld) [Ratio] 0.3 % 0-0.5 [facility] Lymphocytes Auto (Bld) [#/Vo l]Ordered By: Jennifer Duran on 02-12-2022 Lymphocytes (Bld) [#/Vol] 3.0 10*3/uL 1.00-4.8 [facility] Lymphocytes/100 WBC Auto (Bl d)Ordered By: Jennifer Duran on 02-12-2022 Lymphocytes/100 WBC (Bld) 50.8 % . [facility] MCH Auto (RBC) [Entitic mass ]Ordered By: Jennifer Duran on 02-12-2022 MCH (RBC) [Entitic mass] 20.1 pg 24.7-34.3 [facility] MCHC Auto (RBC) [Mass/Vol]Or dered By: Jennifer Duran on 02-12-2022 MCHC (RBC) [Mass/Vol] 30.4 g/dL 32.0-35.0 [facility] MCV Auto (RBC) [Entitic vol] Ordered By: Jennifer Duran on 02-12-2022 MCV (RBC) [Entitic vol] 66.3 fL 80-100 [facility] Monocytes Auto (Bld) [#/Vol] Ordered By: Jennifer Duran on 02-12-2022 Monocytes (Bld) [#/Vol] 0.3 10*3/uL 0.0-0.8 [facility] Monocytes/100 WBC Auto (Bld) Ordered By: Jennifer Duran on 02-12-2022 Monocytes/100 WBC (Bld) 5.7 % . [facility] Neutrophils Auto (Bld) [#/Vo l]Ordered By: Jennifer Duran on 02-12-2022 Neutrophils (Bld) [#/Vol] 2.4 10*3/uL 1.8-7.7 [facility] Neutrophils/100 WBC Auto (Bl d)Ordered By: Jennifer Duran on 02-12-2022 Neutrophils/100 WBC (Bld) 40.3 % . [facility] No Panel InformationOrdered By: Jennifer Duran on 02-12-2022 Estimated GFR () > 60 mL/Min [facility] Comment on above: GFR estimated refere nce range: According to KDOQI guidelines, <60 ml/min/1.73m2 is sufficient to diagnose a patient with chronic kidney disease. Microcytosis Moderate [facility] Creatinine Clearance (Chem N/A [facility] Platelet Estimate Normal Normal [facility] Platelet Morphology Comment Normal Normal [facility] Platelet mean volume Auto (B ld) [Entitic vol]Ordered By: Jennifer Duran on 02-12-2022 Platelet mean volume (Bld) [Entitic vol] 8.1 fL 6.3-10.7 [facility] Platelets Auto (Bld) [#/Vol] Ordered By: Jennifer Duran on 02-12-2022 Platelets (Bld) [#/Vol] 459 10*3/uL 150-450 [facility] Protein [Mass/volume] in Ser um or PlasmaOrdered By: Jennifer Duran on 02-12-2022 Protein [Mass/Vol] 6.6 g/dL 6.1-7.9 [facility] RBC Auto (Bld) [#/Vol]Ordere d By: Jennifer Duran on 02-12-2022 RBC (Bld) [#/Vol] 4.20 10*6/uL 3.60-5.00 [facility] RBC morphologyOrdered By: Pool Duran on 02-12-2022 RBC morphology finding Nom (Bld) N/A [facility] Serum or plasma alanine syed otransferase measurement without P-5'-P (enzymatic activiOrdered By: Jennifer Duran on 02-12-2022 ALT No additional P-5'-P [Catalytic activity/Vol] 69 U/L 10-60 [facility] Serum or plasma albumin/glob ulin mass ratioOrdered By: Jennifer Duran on 02-12-2022 Albumin/Globulin [Mass ratio] 1.3 {ratio} [facility] Serum or plasma alkaline zeeshan sphatase measurement (enzymatic activity/volume)Ordered By: Jennifer Duran on 02-12-2022 ALP [Catalytic activity/Vol] 73 U/L 32-92 [facility] Serum or plasma anion gap de terminationOrdered By: Jennifer Duran on 02-12-2022 Anion gap [Moles/Vol] 13.2 mmol/L 6.0-15.0 [facility] Serum or plasma aspartate am inotransferase measurement (enzymatic activity/volume)Ordered By: Jennifer Duran on 02-12-2022 AST [Catalytic activity/Vol] 42 U/L 10-42 [facility] Serum or plasma calcium donaldo urement (mass/volume)Ordered By: Jennifer Duran on 02-12-2022 Calcium [Mass/Vol] 9.3 mg/dL 8.2-10.2 [facility] [facility] Serum or plasma chloride claudia surement (moles/volume)Ordered By: Jennifer Duran on 02-12-2022 Chloride [Moles/Vol] 101 mmol/L 95-114 [facility] Serum or plasma glucose donaldo urement (mass/volume)Ordered By: Jennifer Duran on 02-12-2022 Glucose [Mass/Vol] 98 mg/dL 70-100 [facility] Comment on above: ADA recommended refe [...] on 02-12-2022 Potassium [Moles/Vol] 3.6 mmol/L 3.5-5.1 [facility] Serum or plasma sodium measu rement (moles/volume)Ordered By: Jennifer Duran on 02-12-2022 Sodium [Moles/Vol] 136 mmol/L 136-146 [facility] Serum or plasma total biliru bin measurement (mass/volume)Ordered By: Jennifer Duran on 02-12-2022 Bilirubin [Mass/Vol] 0.4 mg/dL 0.3-1.2 [facility] Serum or plasma total carbon dioxide measurement (moles/volume)Ordered By: Jennifer Duran on 02-12-2022 CO2 [Moles/Vol] 25.4 mmol/L 22.0-30.0 [facility] Serum or plasma urea nitroge n measurement (mass/volume)Ordered By: Jennifer Duran on 02-12-2022 Urea nitrogen [Mass/Vol] 4 mg/dL 9-23 [facility] Basophils Auto (Bld) [#/Vol] Ordered By: Kendra Persaud on 09-14-2021 Basophils (Bld) [#/Vol] 0.1 10*3/uL 0.0-0.2 [facility] Basophils/100 WBC Auto (Bld) Ordered By: Kendra Persaud on 09-14-2021 Basophils/100 WBC (Bld) 1.3 % [facility] Bilirubin Test strip Ql (U)O rdered By: Kendra Persaud on 09-14-2021 Bilirubin Ql (U) Negative Negative [facility] Blood hemoglobin measurement (mass/volume)Ordered By: Kendra Persaud on 09-14-2021 Hemoglobin (Bld) [Mass/Vol] 9.7 g/dL 11.8-15.4 [facility] Blood leukocytes automated c ount (number/volume)Ordered By: Kendra Persaud on 09-14-2021 WBC (Bld) [#/Vol] 8.9 10*3/uL 4.5-11.0 [facility] Body fluid albumin measureme nt (mass/volume)Ordered By: Kendra Persaud on 09-14-2021 Albumin (Body fld) [Mass/Vol] 3.7 g/dL 3.2-5.5 [facility] Color Auto (U)Ordered By: Jazmin Persaud on 09-14-2021 Color (U) Yellow Yellow [facility] Creatinine and Glomerular fi ltration rate.predicted panel (S/P/Bld)Ordered By: Kendra Persaud on 09-14-2021 Creatinine [Mass/Vol] 0.71 mg/dL 0.44-1.03 [facility] Eosinophils Auto (Bld) [#/Vo l]Ordered By: Kendra Persaud on 09-14-2021 Eosinophils (Bld) [#/Vol] 0.0 10*3/uL 0.0-0.45 [facility] Eosinophils/100 WBC Auto (Bl d)Ordered By: Kendra Persaud on 09-14-2021 Eosinophils/100 WBC (Bld) 0.4 % [facility] Erythrocyte distribution wid th Auto (RBC) [Ratio]Ordered By: Kendra Persaud on 09-14-2021 Erythrocyte distribution width (RBC) [Ratio] 17.0 % 11.9-15.3 [facility] Estimated glomerular filtrat ion rate (GFR) non- AmericanOrdered By: Kendra Persaud on 09-14-2021 GFR/1.73 sq M.predicted among non-blacks MDRD (S/P/Bld) [Vol rate/Area] > 60 mL/Min [facility] Globulin Calc (S) [Mass/Vol] Ordered By: Kendra Persaud on 09-14-2021 Globulin (S) [Mass/Vol] 3.2 g/dL [facility] HCG ( test) IA.rapi d Ql (U)Ordered By: Kendra Persaud on 09-14-2021 HCG ( test) Ql (U) Negative [facility] Hematocrit Auto (Bld) [Volum e fraction]Ordered By: Kendra Persaud on 09-14-2021 Hematocrit (Bld) [Volume fraction] 31.9 % 34.0-46.4 [facility] Ketones Auto test strip (U) [Mass/Vol]Ordered By: Kendra Persaud on 09-14-2021 Ketones (U) [Mass/Vol] Negative Negative Fi [facility] Laboratory - Chemistry and C hemistry - challengeOrdered By: Kendra Persaud 09-14-2021 Lipase [Catalytic activity/Vol] 36.0 U/L 22-51 [facility] Laboratory - Hematology and Cell countsOrdered By: Kendra Persaud on 09-14-2021 Nucleated RBC/100 WBC (Bld) [Ratio] 0.0 % 0-0.5 [facility] Lymphocytes Auto (Bld) [#/Vo l]Ordered By: Kendra Persaud on 09-14-2021 Lymphocytes (Bld) [#/Vol] 4.1 10*3/uL 1.00-4.8 [facility] Lymphocytes/100 WBC Auto (Bl d)Ordered By: Kendra Persaud on 09-14-2021 Lymphocytes/100 WBC (Bld) 45.7 % [facility] MCH Auto (RBC) [Entitic mass ]Ordered By: Kendra Persaud on 09-14-2021 MCH (RBC) [Entitic mass] 21.3 pg 24.7-34.3 [facility] MCHC Auto (RBC) [Mass/Vol]Or dered By: Kendra Persaud on 09-14-2021 MCHC (RBC) [Mass/Vol] 30.4 g/dL 32.0-35.0 [facility] MCV Auto (RBC) [Entitic vol] Ordered By: Kendra Persaud on 09-14-2021 MCV (RBC) [Entitic vol] 70.0 fL 80-100 [facility] Monocytes Auto (Bld) [#/Vol] Ordered By: Kendra Persaud on 09-14-2021 Monocytes (Bld) [#/Vol] 0.7 10*3/uL 0.0-0.8 [facility] Monocytes/100 WBC Auto (Bld) Ordered By: Kendra Persaud on 09-14-2021 Monocytes/100 WBC (Bld) 7.8 % [facility] Neutrophils Auto (Bld) [#/Vo l]Ordered By: Kendra Persaud on 09-14-2021 Neutrophils (Bld) [#/Vol] 4.0 10*3/uL 1.8-7.7 [facility] Neutrophils/100 WBC Auto (Bl d)Ordered By: Kendra Persaud on 09-14-2021 Neutrophils/100 WBC (Bld) 44.8 % [facility] Nitrite Test strip Ql (U)Ord ered By: Kendra Persaud on 09-14-2021 Nitrite Ql (U) Negative Negative [facility] No Panel InformationOrdered By: Kendra Persaud on 09-14-2021 Estimated GFR () > 60 mL/Min [facility] Comment on above: GFR estimated refere nce range: According to KDOQI guidelines, <60 ml/min/1.73m2 is sufficient to diagnose a patient with chronic kidney disease. Pharmacy Creatinine Clearance (Chem 119.44 [facility] Platelet mean volume Auto (B ld) [Entitic vol]Ordered By: Kendra Persaud on 09-14-2021 Platelet mean volume (Bld) [Entitic vol] 7.4 fL 6.3-10.7 [facility] Platelets Auto (Bld) [#/Vol] Ordered By: Kendra Persaud on 09-14-2021 Platelets (Bld) [#/Vol] 604 10*3/uL 150-450 [facility] Protein Auto test strip (U) [Mass/Vol]Ordered By: Kendra Persaud on 09-14-2021 Protein (U) [Mass/Vol] Negative Negative [facility] Protein [Mass/volume] in Ser um or PlasmaOrdered By: Kendra Persaud on 09-14-2021 Protein [Mass/Vol] 6.9 g/dL 6.1-7.9 [facility] RBC Auto (Bld) [#/Vol]Ordere d By: Kendra Persaud on 09-14-2021 RBC (Bld) [#/Vol] 4.55 10*6/uL 3.60-5.00 [facility] Serum or plasma alanine syed otransferase measurement without P-5'-P (enzymatic activiOrdered By: Kendra Persaud on 09-14-2021 ALT No additional P-5'-P [Catalytic activity/Vol] 16 U/L 10-60 [facility] Serum or plasma albumin/glob ulin mass ratioOrdered By: Kendra Persaud on 09-14-2021 Albumin/Globulin [Mass ratio] 1.2 {ratio} [facility] Serum or plasma alkaline zeeshan sphatase measurement (enzymatic activity/volume)Ordered By: Kendra Persaud on 09-14-2021 ALP [Catalytic activity/Vol] 48 U/L 32-92 [facility] Serum or plasma aspartate am inotransferase measurement (enzymatic activity/volume)Ordered By: Kendra Persaud 09-14-2021 AST [Catalytic activity/Vol] 17 U/L 10-42 [facility] Serum or plasma calcium donaldo urement (mass/volume)Ordered By: Kendra Persaud on 09-14-2021 Calcium [Mass/Vol] 9.0 mg/dL 8.2-10.2 [facility] Serum or plasma chloride claudia surement (moles/volume)Ordered By: Kendra Persaud on 09-14-2021 Chloride [Moles/Vol] 105 mmol/L 95-114 [facility] Serum or plasma glucose donaldo urement (mass/volume)Ordered By: Kendra Persaud on 09-14-2021 Glucose [Mass/Vol] 94 mg/dL 70-100 [facility] Comment on above: ADA recommended refe rence rangeRandom Glucose Reference Range is dependent on time and content of last meal. Glucose of more than 200 mg/dL in a nonstressed, ambulatory subject supports the diagnosis of Diabetes Mellitus. Serum or plasma potassium me asurement (moles/volume)Ordered By: Kendra Persaud on 09-14-2021 Potassium [Moles/Vol] 3.1 mmol/L 3.5-5.1 [facility] Serum or plasma sodium measu rement (moles/volume)Ordered By: Kendra Persaud on 09-14-2021 Sodium [Moles/Vol] 139 mmol/L 136-146 [facility] Serum or plasma total biliru bin measurement (mass/volume)Ordered By: Kendra Persaud on 09-14-2021 Bilirubin [Mass/Vol] 0.5 mg/dL 0.3-1.2 [facility] Serum or plasma total carbon dioxide measurement (moles/volume)Ordered By: Kendra Persaud on 09-14-2021 CO2 [Moles/Vol] 23.7 mmol/L 22.0-30.0 [facility] Serum or plasma urea nitroge n measurement (mass/volume)Ordered By: Kendra Persaud on 09-14-2021 Urea nitrogen [Mass/Vol] 4 mg/dL 9-23 [facility] Specific gravity Auto test s trip (U) [Rel density]Ordered By: Kendra Persaud on 09-14-2021 Specific gravity (U) [Rel density] 1.004 1.001-1.030 [facility] Urine clarity by refractomet ry automatedOrdered By: Kendra Persaud on 09-14-2021 Clarity Refractometry automated (U) Clear Clear [facility] Urine glucose measurement by automated test strip (mass/volume)Ordered By: Kendra Persaud on 09-14-2021 Glucose Auto test strip (U) [Mass/Vol] Normal mg/dL Normal [facility] Urine hemoglobin detection b y automated test stripOrdered By: Kendra Persaud on 09-14-2021 Hemoglobin Auto test strip Ql (U) Negative Negative [facility] Urine leukocyte esterase det ection by automated test stripOrdered By: Kendra Persaud on 09-14-2021 Leukocyte esterase Auto test strip Ql (U) Negative Negative [facility] Urobilinogen Auto test strip (U) [Mass/Vol]Ordered By: Kendra Persaud on 09-14-2021 Urobilinogen (U) [Mass/Vol] Normal mg/dL Normal [facility] pH Auto test strip (U)Ordere d By: Kendra Persaud on 09-14-2021 pH (U) 6.5 [pH] 5.0-9.0 [facility] Basophils Auto (Bld) [#/Vol] Ordered By: Augustus Santiago on 07-04-2021 Basophils (Bld) [#/Vol] 0.1 10*3/uL 0.0-0.2 [facility] Basophils/100 WBC Auto (Bld) Ordered By: Augustus Santiago on 07-04-2021 Basophils/100 WBC (Bld) 0.9 % [facility] Blood hemoglobin measurement (mass/volume)Ordered By: Augustus Santiago on 07-04-2021 Hemoglobin (Bld) [Mass/Vol] 10.2 g/dL 11.8-15.4 [facility] Blood leukocytes automated c ount (number/volume)Ordered By: Augustus Santiago on 07-04-2021 WBC (Bld) [#/Vol] 6.6 10*3/uL 4.5-11.0 [facility] CT biopsyOrdered By: Augustus powell on 07-04-2021 Transferrin [Mass/Vol] 360 mg/dL 180-380 Fi [facility] Creatinine and Glomerular fi ltration rate.predicted panel (S/P/Bld)Ordered By: Augustus Santiago on 07-04-2021 Creatinine [Mass/Vol] 0.69 mg/dL 0.44-1.03 [facility] Eosinophils Auto (Bld) [#/Vo l]Ordered By: Augustus Santiago on 07-04-2021 Eosinophils (Bld) [#/Vol] 0.1 10*3/uL 0.0-0.45 [facility] Eosinophils/100 WBC Auto (Bl d)Ordered By: Augustus Santiago on 07-04-2021 Eosinophils/100 WBC (Bld) 1.2 % [facility] Erythrocyte distribution wid th Auto (RBC) [Ratio]Ordered By: Augustus Santiago on 07-04-2021 Erythrocyte distribution width (RBC) [Ratio] 17.2 % 11.9-15.3 [facility] Estimated glomerular filtrat ion rate (GFR) non- AmericanOrdered By: Augustus Santiago on 07-04-2021 GFR/1.73 sq M.predicted among non-blacks MDRD (S/P/Bld) [Vol rate/Area] > 60 mL/Min [facility] Hematocrit Auto (Bld) [Volum e fraction]Ordered By: Augustus Santiago on 07-04-2021 Hematocrit (Bld) [Volume fraction] 32.0 % 34.0-46.4 [facility] Iron [Mass/volume] in Serum or PlasmaOrdered By: Augustus Santiago on 07-04-2021 Iron [Mass/Vol] 10 ug/dL 40-150 [facility] Iron binding capacity [Mass/ volume] in Serum or PlasmaOrdered By: Augustus Santiago on 07-04-2021 Iron binding capacity [Mass/Vol] 504 ug/dL 255-450 [facility] Iron saturation [Mass Fracti on] in Serum or PlasmaOrdered By: Augustus Santiago on 07-04-2021 Iron saturation [Mass fraction] 1.0 % 20-50 [facility] Laboratory - Hematology and Cell countsOrdered By: Augustus Santiago on 07-04-2021 Nucleated RBC/100 WBC (Bld) [Ratio] 0.0 % 0-0.5 [facility] Lymphocytes Auto (Bld) [#/Vo l]Ordered By: Augustus Santiago on 07-04-2021 Lymphocytes (Bld) [#/Vol] 1.9 10*3/uL 1.00-4.8 [facility] Lymphocytes/100 WBC Auto (Bl d)Ordered By: Augustus Santiago on 07-04-2021 Lymphocytes/100 WBC (Bld) 28.4 % [facility] MCH Auto (RBC) [Entitic mass ]Ordered By: Augustus Santiago on 07-04-2021 MCH (RBC) [Entitic mass] 22.7 pg 24.7-34.3 [facility] MCHC Auto (RBC) [Mass/Vol]Or dered By: Augustus Santiago on 07-04-2021 MCHC (RBC) [Mass/Vol] 31.9 g/dL 32.0-35.0 [facility] MCV Auto (RBC) [Entitic vol] Ordered By: Augustus Santiago on 07-04-2021 MCV (RBC) [Entitic vol] 71.3 fL 80-100 [facility] Monocytes Auto (Bld) [#/Vol] Ordered By: Augustus Santiago on 07-04-2021 Monocytes (Bld) [#/Vol] 0.5 10*3/uL 0.0-0.8 [facility] Monocytes/100 WBC Auto (Bld) Ordered By: Augustus Santiago on 07-04-2021 Monocytes/100 WBC (Bld) 7.6 % [facility] Neutrophils Auto (Bld) [#/Vo l]Ordered By: Augustus Santiago on 07-04-2021 Neutrophils (Bld) [#/Vol] 4.1 10*3/uL 1.8-7.7 [facility] Neutrophils/100 WBC Auto (Bl d)Ordered By: Augustus Santiago on 07-04-2021 Neutrophils/100 WBC (Bld) 61.9 % [facility] No Panel InformationOrdered By: Augustus Santiago on 07-04-2021 D-Dimer Quantitative (PE/DVT) < 200 ng/mL 0-243 [facility] Comment on above: The reference range [...] conditions. Estimated GFR () > 60 mL/Min [facility] Comment on above: GFR estimated refere nce range: According to KDOQI guidelines, <60 ml/min/1.73m2 is sufficient to diagnose a patient with chronic kidney disease. Pharmacy Creatinine Clearance (Chem N/A [facility] Platelet mean volume Auto (B ld) [Entitic vol]Ordered By: Augustus Santiago on 07-04-2021 Platelet mean volume (Bld) [Entitic vol] 7.9 fL 6.3-10.7 [facility] Platelets Auto (Bld) [#/Vol] Ordered By: Augustus Santiago on 07-04-2021 Platelets (Bld) [#/Vol] 457 10*3/uL 150-450 [facility] RBC Auto (Bld) [#/Vol]Ordere d By: Augustus Santiago on 07-04-2021 RBC (Bld) [#/Vol] 4.48 10*6/uL 3.60-5.00 [facility] Serum or plasma calcium donaldo urement (mass/volume)Ordered By: uAgustus Santiago on 07-04-2021 Calcium [Mass/Vol] 8.9 mg/dL 8.2-10.2 [facility] Serum or plasma chloride claudia surement (moles/volume)Ordered By: Augustus Santiago on 07-04-2021 Chloride [Moles/Vol] 105 mmol/L 95-114 [facility] Serum or plasma glucose donaldo urement (mass/volume)Ordered By: Augustus Santiago on 07-04-2021 Glucose [Mass/Vol] 110 mg/dL 70-100 [facility] Comment on above: ADA recommended refe rence rangeRandom Glucose Reference Range is dependent on time and content of last meal. Glucose of more than 200 mg/dL in a nonstressed, ambulatory subject supports the diagnosis of Diabetes Mellitus. Serum or plasma potassium me asurement (moles/volume)Ordered By: Augustus Santiago on 07-04-2021 Potassium [Moles/Vol] 3.5 mmol/L 3.5-5.1 [facility] Serum or plasma sodium measu rement (moles/volume)Ordered By: Augustus Santiago on 07-04-2021 Sodium [Moles/Vol] 136 mmol/L 136-146 [facility] Serum or plasma total carbon dioxide measurement (moles/volume)Ordered By: Augustus Santiago on 07-04-2021 CO2 [Moles/Vol] 23.0 mmol/L 22.0-30.0 [facility] Serum or plasma urea nitroge n measurement (mass/volume)Ordered By: Augustus Santiago on 07-04-2021 Urea nitrogen [Mass/Vol] 5 mg/dL 03-05 [facility] Cardiac Stress Teston 2020 Cardiac Stress Test [address], [address] [address] TRANSTHORACIC ECHOCARDIOGRAM REPORT Patient Name: LIVIA NOYOLA Reading Physician: [id number] Raphael Alas MD Study Date: 08/06/2020 Referring Physician: [id number] ANNA CANTU MRN/PID: [id number] PCP: Jennifer Duran Accession/Order#: [id number] Department Location: [facility] Date of : 1985 Fellow: Gender: F Nurse: Admit Date: Product Safety Specialist: Josephine Newton RD, T Height: 165.10 cm CC Report to: Weight: 88.00 kg Study Type: Echocardiogram BSA: 1.95 m2 Diagnosis/ICD: R06.00-Dyspnea, unspecified; R00.0-Tachycardia, unspecified Indication: Obesity, Family History of CAD Procedure/CPT: Echo Complete w Full [id number] Study Detail: The following Echo studies were [...] 0.9 m/s (0.6-0.9m/s) PV Max P.0 mmHg [id number] Raphael Alas MD Electronically signed on 08/07/2020 at 4:26:59 PM Final Normal [facility] Vital Signs Date Time Vital Sign Value Performing Clinician Facility 01-22-2024 12:13-0400 Body height 165.1 cm Eren Camejo DO Work Phone: [facility] [employer] 01-22-2024 12:13-0400 Body mass index (BMI) [Ratio] 29.95 kg/m2 Eren Camejo DO Work Phone: [facility] [employer] 01-22-2024 12:13-0400 Body temperature 98.71 [degF] Eren Camejo DO Work Phone: [facility] [employer] 01-22-2024 12:13-0400 Body weight 81.65 kg Eren Camejo DO Work Phone: [facility] [employer] 01-22-2024 12:13-0400 Diastolic blood pressure 92 mm[Hg] Eren Camejo DO Work Phone: [facility] [employer] 01-22-2024 12:13-0400 Heart rate 109 /min Eren Camejo DO Work Phone: [facility] [employer] 01-22-2024 12:13-0400 Respiratory rate 18 /min Eren Camejo DO [facility] 01-22-2024 12:13-0400 SaO2% (BldA) [Mass fraction] 100 % [facility] 01-22-2024 12:13-0400 Systolic blood pressure 152 mm[Hg] Eren Camejo DO Work Phone: [facility] 01-19-2024 11:18-0400 Body height 165.1 cm DO Jennifer Duran Work Phone: [facility] 01-19-2024 11:18-0400 Body mass index (BMI) [Ratio] 31.9 kg/m2 DO Jennifer Duran Work Phone: [facility] 01-19-2024 11:18-0400 Body temperature 98.2 [degF] DO Jennifer Duran Work Phone: [facility] 01-19-2024 11:18-0400 Body weight 87.08 kg DO Jennifer Duran Work Phone: [facility] 01-19-2024 11:18-0400 Diastolic blood pressure 82 mm[Hg] DO Jennifer Duran Work Phone: [facility] 01-19-2024 11:18-0400 Heart rate 102 /min DO Jennifer Duran Work Phone: [facility] 01-19-2024 11:18-0400 Respiratory rate 18 /min DO Jennifer Duran Work Phone: [facility] 01-19-2024 11:18-0400 SaO2% (BldA) [Mass fraction] 98 % DO Jennifer Duran Work Phone: [facility] 01-19-2024 11:18-0400 Systolic blood pressure 122 mm[Hg] DO Jennifer Duran Work Phone: [facility] 11-08-2023 14:03-0400 Body height 165.1 cm DO Jennifer Duran Work Phone: [facility] 11-08-2023 14:03-0400 Body temperature 98.1 [degF] DO Jennifer Duran Work Phone: [facility] 11-08-2023 14:03-0400 Body weight 82.85 kg DO Jennifer Duran Work Phone: [facility] 11-08-2023 14:03-0400 Diastolic blood pressure 77 mm[Hg] DO Jennifer Duran Work Phone: [facility] 11-08-2023 14:03-0400 Heart rate 86 /min DO Jennifer Duran Work Phone: [facility] 11-08-2023 14:03-0400 Respiratory rate 16 /min DO Jennifer Duran Work Phone: [facility] 11-08-2023 14:03-0400 SaO2% (BldA) [Mass fraction] 100 % DO Jennifer Duran Work Phone: [facility] 11-08-2023 14:03-0400 Systolic blood pressure 142 mm[Hg] DO Jennifer Duran Work Phone: [facility] 11-08-2023 11:56-0400 Body height 165.1 cm Eren Camejo DO Work Phone: [employer] 11-08-2023 11:56-0400 Body mass index (BMI) [Ratio] 30.45 kg/m2 Eren Camejo DO Work Phone: [employer] 11-08-2023 11:56-0400 Body temperature 97.81 [degF] Eren Camejo DO Work Phone: [employer] 11-08-2023 11:56-0400 Body weight 83.01 kg Eren Camejo DO Work Phone: [facility] [employer] 11-08-2023 11:56-0400 Diastolic blood pressure 86 mm[Hg] Eren Camejo DO Work Phone: [employer] 11-08-2023 11:56-0400 Heart rate 100 /min Eren Emely DO Work Phone: [facility] 11-08-2023 11:56-0400 Respiratory rate 18 /min Eren Camejo DO Work Phone: [facility] 11-08-2023 11:56-0400 SaO2% (BldA) [Mass fraction] 99 % Eren Camejo DO Work Phone: [facility] 11-08-2023 11:56-0400 Systolic blood pressure 133 mm[Hg] Eren Camejo DO Work Phone: [facility] 09-30-2023 02:09-0400 Diastolic blood pressure 89 mm[Hg] Ritesh Ivana [facility] 09-30-2023 02:09-0400 Heart rate 124 /min Ritesh Ivana [facility] 09-30-2023 02:09-0400 Mean blood pressure 109 mm[Hg] Ritesh Ivana [facility] 09-30-2023 02:09-0400 Respiratory rate 20 /min Ritesh Ivana [facility] 09-30-2023 02:09-0400 SaO2% (BldA) [Mass fraction] 98 % Ritesh Ivana [facility] 09-30-2023 02:09-0400 Systolic blood pressure 149 mm[Hg] Ritesh Ivana [facility] 09-30-2023 01:00-0400 Diastolic blood pressure 82 mm[Hg] Ritesh Ivana [facility] 09-30-2023 01:00-0400 Heart rate 118 /min Ritesh Ivana [facility] 09-30-2023 01:00-0400 Mean blood pressure 104 mm[Hg] Ritesh Ivana [facility] 09-30-2023 01:00-0400 SaO2% (BldA) [Mass fraction] 99 % Ritesh Ivana [facility] 09-30-2023 01:00-0400 Systolic blood pressure 147 mm[Hg] Ritesh Ivana [facility] 09-29-2023 23:40-0400 Body temperature 97.7 [degF] Ritesh Ivana [facility] 09-29-2023 23:40-0400 Diastolic blood pressure 92 mm[Hg] Ritesh Ivana [facility] 09-29-2023 23:40-0400 Heart rate 139 /min Ritesh Ivana [facility] 09-29-2023 23:40-0400 Respiratory rate 20 /min Ritesh Ivana [facility] 09-29-2023 23:40-0400 SaO2% (BldA) [Mass fraction] 100 % Ritesh Ivana [facility] 09-29-2023 23:40-0400 Systolic blood pressure 144 mm[Hg] Ritesh Ivana [facility] 09-26-2023 18:00-0400 Heart rate 119 /min Konstantin Penny [facility] 09-26-2023 18:00-0400 SaO2% (BldA) [Mass fraction] 96 % Konstantin Penny [facility] 09-26-2023 17:30-0400 Diastolic blood pressure 124 mm[Hg] Konstantin Warde [facility] 09-26-2023 17:30-0400 Heart rate 105 /min Konstantin Zohaib [facility] 09-26-2023 17:30-0400 Mean blood pressure 129 mm[Hg] Konstantin Zohaib [facility] 09-26-2023 17:30-0400 SaO2% (BldA) [Mass fraction] 100 % Konstantin Zohaib [facility] 09-26-2023 17:30-0400 Systolic blood pressure 139 mm[Hg] Konstantin Zohaib [facility] 09-26-2023 16:48-0400 Diastolic blood pressure 82 mm[Hg] Konstantin Zohaib [facility] 09-26-2023 16:48-0400 Heart rate 126 /min Konstantin Zohaib [facility] 09-26-2023 16:48-0400 Mean blood pressure 101 mm[Hg] Konstantin Zohaib [facility] 09-26-2023 16:48-0400 Respiratory rate 18 /min Konstantin Zohaib [facility] 09-26-2023 16:48-0400 SaO2% (BldA) [Mass fraction] 100 % Konstantin Zohaib [facility] 09-26-2023 16:48-0400 Systolic blood pressure 139 mm[Hg] Konstantin Zohaib [facility] 09-26-2023 16:30-0400 Diastolic blood pressure 96 mm[Hg] Konstantin Zohaib [facility] 09-26-2023 16:30-0400 Mean blood pressure 105 mm[Hg] Konstantin Zohaib [facility] 09-26-2023 16:30-0400 Respiratory rate 18 /min Konstantin Zohaib [facility] 09-26-2023 16:30-0400 Systolic blood pressure 122 mm[Hg] Konstantin Penny [facility] 09-26-2023 14:45-0400 Respiratory rate 18 /min Konstantin Penny [facility] 09-26-2023 14:13-0400 Body temperature 98.6 [degF] Konstantin Penny [facility] 07-31-2023 18:01-0500 Diastolic blood pressure 87 mm[Hg] Jignesh Tim [facility] 07-31-2023 18:01-0500 Heart rate 121 /min Jignesh Tim [facility] 07-31-2023 18:01-0500 Mean blood pressure 99 mm[Hg] Jignesh Tim [facility] 07-31-2023 18:01-0500 Respiratory rate 16 /min Jignesh Tim [facility] 07-31-2023 18:01-0500 SaO2% (BldA) [Mass fraction] 99 % Jignesh Tim [facility] 07-31-2023 18:01-0500 Systolic blood pressure 123 mm[Hg] Jignesh Tim [facility] 07-31-2023 17:00-0500 Diastolic blood pressure 77 mm[Hg] Jignesh Tim [facility] 07-31-2023 17:00-0500 Heart rate 96 /min Jignesh Tim [facility] 07-31-2023 17:00-0500 Mean blood pressure 92 mm[Hg] Jignesh Tim [facility] 07-31-2023 17:00-0500 Systolic blood pressure 122 mm[Hg] Jignesh Tim [facility] 07-31-2023 16:07-0500 Diastolic blood pressure 90 mm[Hg] Jignesh Tim [facility] 07-31-2023 16:07-0500 Heart rate 117 /min Jignesh Tim [facility] 07-31-2023 16:07-0500 Mean blood pressure 105 mm[Hg] Jignesh Tim [facility] 07-31-2023 16:07-0500 Respiratory rate 19 /min Jignesh Tim [facility] 07-31-2023 16:07-0500 SaO2% (BldA) [Mass fraction] 100 % Jignesh Dumont [facility] 07-31-2023 16:07-0500 Systolic blood pressure 135 mm[Hg] Jignesh Tim [facility] 07-31-2023 16:06-0500 Respiratory rate 18 /min Jignesh Tim [facility] 07-31-2023 15:34-0500 Body temperature 97.88 [degF] Jignesh Dumont [facility] 07-31-2023 15:34-0500 Heart rate 136 /min Jignesh Tim [facility] 07-31-2023 15:34-0500 Respiratory rate 18 /min Jignesh Tim [facility] 07-19-2023 12:40-0500 Body height 165.1 cm Jennifer Duran Other [facility] [employer] Other 04-30-2023 18:19-0500 Diastolic blood pressure 82 mm[Hg] DO Jennifer Duran Work Phone: [facility] 04-30-2023 18:19-0500 Heart rate 128 /min DO Jennifer Duran Work Phone: [facility] 04-30-2023 18:19-0500 Respiratory rate 18 /min DO Jennifer Duran Work Phone: [facility] 04-30-2023 18:19-0500 SaO2% (BldA) [Mass fraction] 99 % DO Jennifer Duran Work Phone: [facility] 04-30-2023 18:19-0500 Systolic blood pressure 116 mm[Hg] DO Jennifer Duran Work Phone: [facility] 04-30-2023 16:43-0500 Body height 165.1 cm DO Jennifer Duran Work Phone: [facility] 04-30-2023 16:43-0500 Body temperature 98.1 [degF] DO Jennifer Duran Work Phone: [facility] 04-30-2023 16:43-0500 Body weight 62.3 kg DO Jennifer Duran Work Phone: [facility] 04-24-2023 15:51-0500 Diastolic blood pressure 81 mm[Hg] Jignesh Dumont [facility] 04-24-2023 15:51-0500 Heart rate 98 /min Jignesh Dumont [facility] 04-24-2023 15:51-0500 Mean blood pressure 94 mm[Hg] Jignesh Dumont [facility] 04-24-2023 15:51-0500 Respiratory rate 17 /min Jignesh Dumont [facility] 04-24-2023 15:51-0500 SaO2% (BldA) [Mass fraction] 99 % Jignesh Dumont [facility] 04-24-2023 15:51-0500 Systolic blood pressure 120 mm[Hg] Jignesh Dumont [facility] 04-24-2023 15:00-0500 Diastolic blood pressure 72 mm[Hg] Jignesh Tim [facility] 04-24-2023 15:00-0500 Heart rate 85 /min Jignesh Tim [facility] 04-24-2023 15:00-0500 Mean blood pressure 87 mm[Hg] Jignesh Tim [facility] 04-24-2023 15:00-0500 Respiratory rate 16 /min Jignesh Tim [facility] 04-24-2023 15:00-0500 SaO2% (BldA) [Mass fraction] 96 % Jignesh Tim [facility] 04-24-2023 15:00-0500 Systolic blood pressure 117 mm[Hg] Jignesh Tim [facility] 04-24-2023 14:00-0500 Diastolic blood pressure 88 mm[Hg] Jignesh Tim [facility] 04-24-2023 14:00-0500 Heart rate 99 /min Jignesh Tim [facility] 04-24-2023 14:00-0500 Mean blood pressure 100 mm[Hg] Jignesh Tim [facility] 04-24-2023 14:00-0500 Respiratory rate 18 /min Jignesh Tim [facility] 04-24-2023 14:00-0500 SaO2% (BldA) [Mass fraction] 97 % Jignesh Tim [facility] 04-24-2023 14:00-0500 Systolic blood pressure 124 mm[Hg] Jignesh Tim [facility] 04-24-2023 13:29-0500 Body temperature 99.14 [degF] Jignesh Tim [facility] 04-24-2023 13:29-0500 Heart rate 118 /min Jignesh Duomnt [facility] 04-03-2023 00:20-0400 Diastolic blood pressure 70 mm[Hg] DO Jennifer Duran Work Phone: [facility] 04-03-2023 00:20-0400 Heart rate 80 /min DO Jennifer Kendallvielisse Work Phone: [facility] 04-03-2023 00:20-0400 SaO2% (BldA) [Mass fraction] 98 % DO Jennifer Kendallivelisse Work Phone: [facility] 04-03-2023 00:20-0400 Systolic blood pressure 122 mm[Hg] DO Jennifer Duran Work Phone: [facility] 04-02-2023 21:48-0400 Diastolic blood pressure 75 mm[Hg] DO Jennifer Kendallivelisse Work Phone: [facility] 04-02-2023 21:48-0400 Heart rate 90 /min DO Jennifer Kendallivelisse Work Phone: [facility] 04-02-2023 21:48-0400 Respiratory rate 20 /min DO Jennifer Kendallivelisse Work Phone: [facility] 04-02-2023 21:48-0400 SaO2% (BldA) [Mass fraction] 98 % DO Jennifer Kendallivelisse Work Phone: [facility] 04-02-2023 21:48-0400 Systolic blood pressure 109 mm[Hg] DO Jennifer Kendallivelisse Work Phone: [facility] 04-02-2023 20:23-0400 Body height 165.1 cm DO Jennifer Kendallivelisse Work Phone: [facility] 04-02-2023 20:23-0400 Body temperature 98.2 [degF] DO Jennifer Duran Work Phone: [phone] [place] [address] 04-02-2023 20:23-0400 Body weight 81.64 kg DO Jennifer Girvin Work Phone: [facility] 03-29-2023 16:11-0400 Body temperature 97.8 [degF] DO Jennifer Girvin Work Phone: [facility] 03-29-2023 16:11-0400 Diastolic blood pressure 79 mm[Hg] DO Jennifer Girvin Work Phone: [facility] 03-29-2023 16:11-0400 Heart rate 104 /min DO Jennifer Girvin Work Phone: [facility] 03-29-2023 16:11-0400 Respiratory rate 16 /min DO Jennifer Girvin Work Phone: [facility] 03-29-2023 16:11-0400 SaO2% (BldA) [Mass fraction] 98 % DO Jennifer Girivelisse Work Phone: [facility] 03-29-2023 16:11-0400 Systolic blood pressure 123 mm[Hg] DO Jennifer Girivelisse Work Phone: [facility] 03-29-2023 06:35-0400 Body height 165.1 cm DO Jennifer Girivelisse Work Phone: [facility] 03-29-2023 06:35-0400 Body weight 87.5 kg DO Jennifer Girvin Work Phone: [facility] 03-29-2023 05:41-0400 Diastolic blood pressure 85 mm[Hg] DO Jennifer Girvin Work Phone: [facility] 03-29-2023 05:41-0400 Heart rate 110 /min DO Jennifer Girvin Work Phone: [facility] 03-29-2023 05:41-0400 Respiratory rate 18 /min DO Jennifer Girvin Work Phone: [facility] 03-29-2023 05:41-0400 SaO2% (BldA) [Mass fraction] 100 % DO Jennifer Girvin Work Phone: [facility] 03-29-2023 05:41-0400 Systolic blood pressure 160 mm[Hg] DO Jennifer Duran Work Phone: [facility] 03-29-2023 01:39-0400 Body height 165.1 cm DO Jennifer Duran Work Phone: [facility] 03-29-2023 01:39-0400 Body temperature 97.2 [degF] DO Jennifer Duran Work Phone: [facility] 03-29-2023 01:39-0400 Body weight 87 kg DO Jennifer Duran Work Phone: [facility] 02-06-2023 04:00-0400 Diastolic blood pressure 74 mm[Hg] DO Jennifer Duran Work Phone: [facility] 02-06-2023 04:00-0400 Heart rate 79 /min DO Jennifer Duran Work Phone: [facility] 02-06-2023 04:00-0400 Respiratory rate 15 /min DO Jennifer Duran Work Phone: [facility] 02-06-2023 04:00-0400 SaO2% (BldA) [Mass fraction] 99 % DO Jennifer Duran Work Phone: [facility] 02-06-2023 04:00-0400 Systolic blood pressure 119 mm[Hg] DO Jennifer Duran Work Phone: [facility] 02-05-2023 23:41-0400 Body height 165.1 cm DO Jennifer Duran Work Phone: [facility] 02-05-2023 23:41-0400 Body temperature 98 [degF] DO Jennifer Duran Work Phone: [facility] 02-05-2023 23:41-0400 Body weight 81.64 kg DO Jennifer Kendallivelisse Work Phone: [facility] 01-12-2023 14:40-0400 Body height 165.1 cm Jennifer Duran Other [employer] Other 01-12-2023 14:40-0400 Body mass index (BMI) [Ratio] 33.44 kg/m2 Jennifer Duran Other [employer] Other 01-12-2023 14:40-0400 Body temperature 99.5 [degF] Jennifer Duran Other [employer] Other 01-12-2023 14:40-0400 Body weight 91.17 kg Jennifer Duran Other [employer] Other 01-12-2023 14:40-0400 Diastolic blood pressure 78 mm[Hg] Jennifer Duran Other [employer] Other 01-12-2023 14:40-0400 Respiratory rate 18 /min Jennifer Enochivelisse Other [employer] Other 01-12-2023 14:40-0400 SaO2% (BldA) [Mass fraction] 97 % Jennifer Duran Other [employer] Other 01-12-2023 14:40-0400 Systolic blood pressure 110 mm[Hg] Jennifer Duran Other [employer] Other 10-11-2022 16:20-0400 Body height 165.1 cm Jennifer Duran Other [employer] Other 07-12-2022 16:20-0500 Body height 165.1 cm Jennifer Duran Other [employer] Other 07-12-2022 16:20-0500 Body mass index (BMI) [Ratio] 31.2 kg/m2 Jennifer Duran Other [employer] Other 07-12-2022 16:20-0500 Body temperature 97.2 [degF] Jennifer Duran Other [employer] Other 07-12-2022 16:20-0500 Body weight 85.05 kg Jennifer Duran Other [employer] Other 07-12-2022 16:20-0500 Diastolic blood pressure 74 mm[Hg] Jennifer Duran Other [employer] Other 07-12-2022 16:20-0500 Respiratory rate 18 /min Jennifer Duran Other [employer] Other 07-12-2022 16:20-0500 SaO2% (BldA) [Mass fraction] 99 % Jennifer Wilber Other [employer] Other 07-12-2022 16:20-0500 Systolic blood pressure 106 mm[Hg] Jennifer Duran Other [employer] Other 04-28-2022 04:00-0500 Diastolic blood pressure 70 mm[Hg] DO Jennifer Duran Work Phone: [facility] 04-28-2022 04:00-0500 Heart rate 81 /min DO Jennifer Duran Work Phone: [facility] 04-28-2022 04:00-0500 SaO2% (BldA) [Mass fraction] 96 % DO Jennifer Duran Work Phone: [facility] 04-28-2022 04:00-0500 Systolic blood pressure 110 mm[Hg] DO Jennifer Wilber Work Phone: [facility] 04-28-2022 03:56-0500 Body height 165.1 cm DO Jennifer Kendallivelisse Work Phone: [facility] 04-28-2022 03:56-0500 Body weight 80 kg DO Jennifer Duran Work Phone: [facility] 04-28-2022 03:56-0500 Respiratory rate 18 /min DO Jennifer Duran Work Phone: [facility] 04-28-2022 00:13-0500 Body temperature 97.2 [degF] DO Jennifer Duran Work Phone: [facility] 04-12-2022 15:40-0400 Body height 165.1 cm Jennifer Duran Other [employer] [facility] [employer] Other 04-12-2022 15:40-0400 Body mass index (BMI) [Ratio] 30.37 kg/m2 Jennifer Duran Other [employer] Other 04-12-2022 15:40-0400 Body temperature 98.8 [degF] Jennifer Duran Other [employer] Other 04-12-2022 15:40-0400 Body weight 82.78 kg Jennifer Duran Other [employer] Other 04-12-2022 15:40-0400 Diastolic blood pressure 76 mm[Hg] Jennifer Duran Other [employer] Other 04-12-2022 15:40-0400 Respiratory rate 18 /min Jennifer Duran Other [employer] Other 04-12-2022 15:40-0400 SaO2% (BldA) [Mass fraction] 98 % Jennifer Duran Other [employer] Other 04-12-2022 15:40-0400 Systolic blood pressure 110 mm[Hg] Jennifer Duran Other [employer] Other 04-09-2022 13:32-0400 Body temperature 97.59 [degF] Chair Dodge Work Phone: [facility] 04-09-2022 13:32-0400 Diastolic blood pressure 64 mm[Hg] Chair Dodge Work Phone: [facility] 04-09-2022 13:32-0400 Heart rate 114 /min Chair Dodge Work Phone: [facility] 04-09-2022 13:32-0400 Respiratory rate 18 /min Chair Dodge Work Phone: [facility] 04-09-2022 13:32-0400 SaO2% (BldA) [Mass fraction] 97 % Chair Dodge Work Phone: [facility] 04-09-2022 13:32-0400 Systolic blood pressure 116 mm[Hg] Chair Dodge Work Phone: [facility] 03-26-2022 13:54-0400 Body temperature 97.9 [degF] Chair Dodge Work Phone: [facility] 03-26-2022 13:54-0400 Diastolic blood pressure 75 mm[Hg] Chair Dodge Work Phone: [facility] 03-26-2022 13:54-0400 Heart rate 82 /min Chair Dodge Work Phone: [facility] 03-26-2022 13:54-0400 Respiratory rate 18 /min Chair Patria Work Phone: [facility] 03-26-2022 13:54-0400 SaO2% (BldA) [Mass fraction] 100 % Chair Dodge Work Phone: [facility] 03-26-2022 13:54-0400 Systolic blood pressure 106 mm[Hg] Chair Dodge Work Phone: [facility] 03-10-2022 13:54-0400 Body height 165.1 cm Gil Ni APRN.CNP Work Phone: [facility] 03-10-2022 13:54-0400 Body temperature 97.9 [degF] Gil Ni APRN.STAFFING BRANCH MANAGER Work Phone: [facility] 03-10-2022 13:54-0400 Body weight 83.37 kg Gil Ni APRN.STAFFING BRANCH MANAGER Work Phone: [facility] 03-10-2022 13:54-0400 Diastolic blood pressure 75 mm[Hg] Gil Ni APRN.STAFFING BRANCH MANAGER Work Phone: [facility] 03-10-2022 13:54-0400 Heart rate 95 /min Gil Ni APRN.STAFFING BRANCH MANAGER Work Phone: [facility] 03-10-2022 13:54-0400 Respiratory rate 16 /min Gil Ni APRN.STAFFING BRANCH MANAGER Work Phone: [facility] 03-10-2022 13:54-0400 SaO2% (BldA) [Mass fraction] 100 % Gil Ni APRN.STAFFING BRANCH MANAGER Work Phone: [facility] 03-10-2022 13:54-0400 Systolic blood pressure 130 mm[Hg] Gil Ni APRN.STAFFING BRANCH MANAGER Work Phone: [facility] 12-04-2021 12:49-0400 Blood Pressure Location Yamilka [employer] [facility] 12-04-2021 12:49-0400 Body temperature 98.42 [degF] Yamilka Orzech [facility] 12-04-2021 12:49-0400 Diastolic blood pressure 82 mm[Hg] Yamilka Orzech [facility] 12-04-2021 12:49-0400 Heart rate 110 /min Yamilka Orzech [facility] 12-04-2021 12:49-0400 SaO2% (BldA) [Mass fraction] 99 % Yamilka Orzeomer [facility] 12-04-2021 12:49-0400 Systolic blood pressure 126 mm[Hg] Yamilka Serranozeomer [facility] 10-16-2021 09:10-0400 Body height 165.1 cm Jennifer Enochivelisse Other [facility] [employer] Other 09-14-2021 19:31-0400 Diastolic blood pressure 82 mm[Hg] DO Jennifer Duran Work Phone: [facility] 09-14-2021 19:31-0400 Heart rate 87 /min DO Jennifer Duran Work Phone: [facility] 09-14-2021 19:31-0400 Respiratory rate 18 /min DO Jennifer Duran Work Phone: [facility] 09-14-2021 19:31-0400 SaO2% (BldA) [Mass fraction] 99 % DO Jennifer Duran Work Phone: [facility] 09-14-2021 19:31-0400 Systolic blood pressure 126 mm[Hg] DO Jennifer Duran Work Phone: [facility] 09-14-2021 14:45-0400 Body height 165.1 cm DO Jennifer Duran Work Phone: [facility] 09-14-2021 14:45-0400 Body mass index (BMI) [Ratio] 30.7 kg/m2 DO Jennifer Duran Work Phone: [facility] 09-14-2021 14:45-0400 Body temperature 98 [degF] DO Jennifer Duran Work Phone: [facility] 09-14-2021 14:45-0400 Body weight 83.91 kg DO Jennifer Duran Work Phone: [facility] 04-21-2021 16:20-0500 Body height 165.1 cm Jennifer Enochivelisse Other [employer] Other 04-21-2021 16:20-0500 Body mass index (BMI) [Ratio] 32.28 kg/m2 Jennifer Duran Other [employer] Other 04-21-2021 16:20-0500 Body temperature 98.3 [degF] Jennifer Enochivelisse Other [employer] Other 04-21-2021 16:20-0500 Body weight 88 kg Jennifer Duran Other [employer] Other 04-21-2021 16:20-0500 Diastolic blood pressure 82 mm[Hg] Jennifer Duran Other [employer] Other 04-21-2021 16:20-0500 SaO2% (BldA) [Mass fraction] 98 % Jennifer Duran Other [employer] Other 04-21-2021 16:20-0500 Systolic blood pressure 124 mm[Hg] Jennifer Duran Other [employer] Other Encounters Encounter Date Encounter Type Care Provider Facility Start: 01-27-2024 End: 01-28-2024 Emergency department patient visit GUSTAVO DAVIES [facility] Start: 01-27-2024 End: 01-27-2024 Emergency department patient visit NO PCP NO PCP [facility] Start: 01-22-2024 End: 01-22-2024 Emergency department patient visit Eren Mireles Emely WATKINS Work Phone: [facility] ED Comment on above: Cyst of left ovary ( Primary Dx) Start: 01-19-2024 End: 01-19-2024 ambulatory DO Jennifer Duran Work Phone: [facility] Work Phone: Start: 01-19-2024 End: 01-19-2024 Patient encounter procedure DO Jennifer Enochivelisse [facility] Phone[facility] [place] Work Phone: Start: 12-07-2023 ambulatory DO Jennifer roberts Work Phone: [facility] Work Phone: Start: 12-07-2023 Non-patient / Non-visit DO Jennifer Duran Work Phone: [facility] Work Phone: Start: 11-25-2023 End: 11-25-2023 Patient encounter procedure DO Jennifer Enochivelisse Work Phone: [facility] [place] Work Phone: Start: 11-25-2023 End: 11-25-2023 ambulatory DO Jennifer Duran Work Phone: [facility] Work Phone: Start: 11-23-2023 End: 11-23-2023 ambulatory [facility] Start: 11-09-2023 End: 11-09-2023 ambulatory [facility] Start: 11-08-2023 End: 11-08-2023 Emergency department patient visit DO Jennifer Duran Work Phone: [facility] Work Phone: Start: 11-08-2023 End: 11-08-2023 Emergency department patient visit Eren Camejo DO Work Phone: [facility] ED Comment on above: Toothache (Primary D x) Start: 10-25-2023 End: 10-26-2023 Emergency department patient visit HOUSTON Dottie [facility] Start: 10-25-2023 End: 10-26-2023 Emergency department patient visit TARIK D KARCHNER [facility] Start: 10-25-2023 End: 10-25-2023 Emergency department patient visit NO PCP NO PCP [facility] Start: 10-25-2023 End: 10-26-2023 Emergency department patient visit TARIK D [facility] Start: 10-19-2023 End: 10-19-2023 ambulatory TARUN BRADEN Not Available Start: 10-18-2023 End: 10-18-2023 ambulatory [facility] Work Phone: Start: 10-18-2023 End: 10-18-2023 Patient encounter procedure [facility] Work Phone: Start: 09-30-2023 End: 09-30-2023 Emergency department patient visit Ritesh Heath Facility:[facility] Start: 09-29-2023 End: 09-30-2023 Emergency department patient visit Ritesh Heath [facility] Start: 09-26-2023 End: 09-26-2023 Emergency department patient visit Konstantin Penny Facility:[facility] Start: 09-26-2023 End: 09-26-2023 Emergency department patient visit Konstantin Penny [facility] Start: 09-06-2023 End: 09-06-2023 Emergency department patient visit [facility] Start: 07-31-2023 End: 07-31-2023 Emergency department patient visit Jignesh Dumont Facility:[facility] Start: 07-31-2023 End: 07-31-2023 Emergency department patient visit Jignesh Dumont [facility] Start: 07-28-2023 End: 07-28-[address] [facility] Work Phone: Start: 07-28-2023 End: 07-28-2023 Patient encounter procedure PHYSICIAN NO [facility] [place] Work Phone: Start: 07-19-2023 End: 07-19-2023 ambulatory Jennifer Duran Other [employer] Other Start: 07-19-2023 Telephone encounter Jennifer Duran [facility] Start: 06-22-2023 End: 06-23-2023 Emergency department patient visit EVGENY SEN MD Facility:[facility] Start: 06-07-2023 End: 06-07-2023 ambulatory Jennifer Duran Other [employer] Other Start: 06-07-2023 Telephone encounter Jennifer Duran [facility] [place] Start: 05-30-2023 End: 05-30-2023 Emergency department patient visit [facility] Start: 05-17-2023 End: 05-18-2023 Emergency department patient visit Ritesh Haeth Facility:[facility] Start: 05-16-2023 End: 05-16-2023 ambulatory eJnnifer Duran Other [employer] Other Start: 05-16-2023 Telephone encounter Jennifer Duran [facility] Start: 04-30-2023 End: 04-30-2023 Emergency department patient visit DO Jennifer Duran Work Phone: [facility]-Emergency [facility] Work Phone: Start: 04-24-2023 End: 04-24-2023 Emergency department patient visit Jignesh Dumont Facility:[facility] Start: 04-24-2023 End: 04-24-2023 Emergency department patient visit Jignesh Dumont [facility] Start: 04-18-2023 End: 04-18-2023 ambulatory Jennifer Duran Other [employer] Other Start: 04-18-2023 Telephone encounter Jennifer Duran [facility] Start: 04-11-2023 End: 04-11-2023 ambulatory Jennifer Duran Other [employer] Other Start: 04-11-2023 Telephone encounter Jennifer Duran [facility] Start: 04-04-2023 End: 04-04-2023 ambulatory Jennifer Duran Other [employer] Other Start: 04-04-2023 Telephone encounter Jennifer Duran [facility] [place] Start: 04-02-2023 End: 04-03-2023 Emergency department patient visit DO Jennifer Duran Work Phone: [facility]Emer[facility] Work Phone: Start: 04-01-2023 End: 04-01-2023 ambulatory Jennifer Duran Other [employer] Other Start: 04-01-2023 Telephone encounter Jennifer Duran [facility] [place] Start: 03-29-2023 Telephone encounter Jennifer Kendallivelisse [facility] [place] Start: 03-29-2023 End: 03-29-2023 Evaluation and management of inpatient DO Jennifer Duran Work Phone: [facility] Work Phone: Start: 03-29-2023 End: 03-29-2023 observation encounter DO Jennifer Duran Work Phone: [facility] Work Phone: Start: 03-29-2023 End: 03-29-2023 ambulatory Jennifer Duran [employer] Other Start: 03-13-2023 End: 03-13-2023 ambulatory DO Jennifer Duran Work Phone: [facility] Work Phone: Start: 03-13-2023 End: 03-13-2023 Patient encounter procedure DO Jennifer Enochivelisse Work Phone: [facility]-Flu Vaccine Start: 03-02-2023 End: 03-02-2023 ambulatory Jennifer Duran Other [employer] Other Start: 03-02-2023 Telephone encounter Jennifer Duran [facility] [place] Start: 02-05-2023 End: 02-06-2023 Emergency department patient visit DO Jennifer Duran Work Phone: [facility]-Emergency Room Work Phone: Start: 01-12-2023 End: 01-12-2023 ambulatory Jennifer Duran Other [employer] Other Start: 01-12-2023 Office outpatient visit 15 minutes Jennifer Duran [facility] Start: 12-09-2022 End: 12-09-2022 ambulatory Jennifer Duran Other [employer] Other Start: 12-09-2022 Telephone encounter Jennifer Duran [facility] [place] Start: 10-11-2022 End: 10-11-2022 ambulatory Jennifer Duran Other [employer] Other Start: 10-11-2022 Telephone encounter Jennifer Duran [facility] [place] Start: 09-22-2022 End: 09-22-2022 ambulatory Jennifer Duran Other [employer] Other Start: 09-22-2022 Telephone encounter Jennifer Duran [facility] [place] Start: 07-28-2022 End: 07-28-2022 ambulatory BELKIS SANDOVAL Facility:[facility] Start: 07-12-2022 End: 07-12-2022 ambulatory Jennifer Duran Other [facility] Other Start: 07-12-2022 Office outpatient visit 15 minutes Jennifer Duran [facility] [place] Start: 07-12-2022 Telephone encounter Jennifer Duran [facility] [place] Start: 06-02-2022 End: 06-02-2022 ambulatory Jennifer Duran Other [employer] Other Start: 06-02-2022 Telephone encounter Jennifer Duran [facility] [place] Start: 05-04-2022 End: 05-04-2022 ambulatory Jennifer Duran Other [facility] Other Start: 05-04-2022 Telephone encounter Jennifer Duran [facility] [place] Start: 04-30-2022 Telephone encounter Gil arechiga APRN.STAFFING BRANCH MANAGER Work Phone: Hematology/Oncology Comment on above: Lab Orders Start: 04-28-2022 Evaluation and management of inpatient DO Jennifer Duran Work Phone: [facility] [address] Start: 04-28-2022 observation encounter DO Jennifer Duran Work Phone: [facility] Work Phone: Start: 04-12-2022 End: 04-12-2022 ambulatory Jennifer Duran Other [employer] Other Start: 04-12-2022 Office outpatient visit 15 minutes Jennifer Duran [facility] [place] Start: 04-12-2022 Telephone encounter Jennifer Duran [facility] [place] Start: 04-09-2022 End: 04-10-2022 ambulatory Stephenie Suh 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 Arts & Medicine Comment on above: Art Therapy Iron deficiency anem ia due to chronic blood loss (Primary Dx); Malabsorption of iron; Cyst of left ovary Start: 03-26-2022 End: 03-27-2022 ambulatory GIL NI Facility:[facility] Start: 03-26-2022 End: 03-26-2022 ambulatory Chair Anton España Work Phone: Hematology/Oncology Comment on above: Iron deficiency anem ia due to chronic blood loss (Primary Dx); Malabsorption of iron; Cyst of left ovary Start: 03-15-2022 Telephone encounter Sharon HERNANDEZ H ematology/Oncology Comment on above: Social Work Services Start: 03-10-2022 End: 03-11-2022 ambulatory Gil Ni HUMAN RESOURCES PARTNER.STAFFING BRANCH MANAGER Work Phone: Hematology/Oncology Comment on above: Iron deficiency anem ia due to chronic blood loss (Primary Dx); Malabsorption of iron Start: 03-10-2022 End: 03-10-2022 Patient encounter procedure Gil Ni HUMAN RESOURCES PARTNER.STAFFING BRANCH MANAGER Work Phone: [facility] Start: 02-18-2022 Telephone encounter Gil arechiga HUMAN RESOURCES PARTNER.STAFFING BRANCH MANAGER Work Phone: Hematology/Oncology Comment on above: Lab Orders Start: 02-16-2022 End: 02-16-2022 ambulatory Jennifer Duran Other [facility] Other Start: 02-16-2022 Telephone encounter Jennifer Duran [facility] Start: 02-12-2022 End: 02-12-2022 Patient encounter procedure DO Jennifer Duran Work Phone: [facility] [place] Start: 01-07-2022 End: 01-07-2022 ambulatory Jennifer Duran Other [facility] Other Start: 01-07-2022 Telephone encounter Jennifer Duran [facility] Start: 12-04-2021 End: 12-04-2021 Patient encounter procedure Yamilka Lorenzo [facility] Start: 10-29-2021 End: 10-29-2021 ambulatory Jennifer Duran Other [facility] Other Start: 10-29-2021 Telephone encounter [facility] Start: 10-16-2021 End: 10-16-2021 ambulatory Jennifer Duran Other [facility] Other Start: 10-16-2021 Office outpatient visit 15 minutes Jennifer Duran [facility] Start: 09-21-2021 End: 09-21-2021 ambulatory Jennifer Duran Other [facility] Other Start: 09-21-2021 Telephone encounter Jennifer Duran [facility] [place] Start: 09-14-2021 End: 09-14-2021 Emergency department patient visit DO Jennifer Duran Work Phone: [facility] Start: 08-18-2021 End: 08-18-2021 ambulatory Jennifer Duran Other [facility] Other Start: 08-18-2021 Telephone encounter Jennifer Duran [facility] [place] Start: 08-11-2021 End: 08-11-2021 ambulatory Jennifer Duran Other [facility] Other Start: 08-11-2021 Telephone encounter Jennifer Duran [facility] [place] Start: 08-03-2021 End: 08-03-2021 ambulatory Jennifer Duran Other [employer] Other Start: 08-03-2021 Telephone encounter Jennifer Duran [facility] [place] Start: 07-04-2021 End: 07-04-2021 Patient encounter procedure DO Jennifer Duran Work Phone: [facility] [place] Start: 06-04-2021 End: 06-04-2021 ambulatory Jennifer Duran Other [facility] Other Start: 06-04-2021 Telephone encounter Jennifer Duran [facility] [place] Start: 05-18-2021 End: 05-18-2021 ambulatory Jennifer Duran Other [employer] Other Start: 05-18-2021 Telephone encounter Jennifer Duran [facility] [place] Start: 04-21-2021 End: 04-21-2021 ambulatory Jennifer Duran Other [facility] Other Start: 04-21-2021 Encounter for genera l adult medical examination without abnormal findings Jennifer Duran [facility] Start: 04-21-2021 Periodic preventive med est patient 18-39 yrs Jennifer Duran [facility] Procedures Date Procedure Procedure Detail Performing Clinician Start: 11-25-2023 CT of paranasal sinu s without contrast DO Jennifer Duran Work Phone: Start: 04-30-2023 Pelvic echography DO Pool Duran Work Phone: Start: 04-30-2023 Transvaginal echography DO Jennifer Duran Work Phone: Start: 03-29-2023 Computed tomography of abdomen and pelvis with contrast DO Jennifer Duran Work Phone: Start: 03-29-2023 Transvaginal echography DO Jennifer Duran Work Phone: Start: 03-29-2023 Pelvic echography DO Pool Duran Work Phone: Start: 02-06-2023 Pelvic echography DO Pool Duran Work Phone: Start: 02-06-2023 Transvaginal echography DO Jennifer Duran Work Phone: Start: 02-05-2023 Computed tomography of abdomen and pelvis with contrast DO Jennifer Duran Work Phone: Start: 09-14-2021 Computed tomography of abdomen and pelvis with contrast DO Jennifer Duran Work Phone: Start: 09-14-2021 Pelvic echography DO Pool Duran Work Phone: Start: 09-14-2021 Transvaginal echography DO Jennifer Duran Work Phone: Plan of Treatment Date Care Activity Detail Author Start: 01-12-2024 Influenza vaccination Flu vaccine (# 1) [facility] Start: 12-07-2023 Patient referral [facility] Work Phone: Start: 03-30-2023 Comprehensive metabo lic 2000 panel - Serum or Plasma [facility] Start: 03-30-2023 [facility] Start: 03-29-2023 [facility] Start: 03-29-2023 Referral to trauma coordinator [facility] Start: 03-29-2023 Hospital admission [facility] Start: 03-29-2023 [facility] Start: 03-29-2023 Computed tomography of abdomen and pelvis with contrast CT abdomen pelvis w con [facility] Start: 03-29-2023 CT Abdomen and Pelvi s W contrast IV [facility] Start: 03-29-2023 Transvaginal echography US transvagi nal [facility] Start: 03-29-2023 US Pelvis transvaginal [facility] Start: 03-29-2023 Pelvic echography US pelvic complete [facility] Start: 03-29-2023 US Pelvis [facility] Start: 02-11-2023 COVID-19 Vaccine () COVID-19 Vaccine () [facility] Start: 02-06-2023 Pelvic echography US pelvic complete [facility] Start: 02-06-2023 US Pelvis [facility] Start: 02-06-2023 Transvaginal echography US transvagi [facility] Start: 02-06-2023 US Pelvis transvaginal [facility] Start: 02-05-2023 Computed tomography of abdomen and pelvis with contrast CT abdomen pelvis w [facility] Start: 02-05-2023 CT Abdomen and Pelvi s W contrast IV [facility] Start: 05-05-2022 End: 07-05-2022 CBC W Auto Differential panel - Blood CBC + DIFF Lab Routine Iron deficiency anemia due to chronic blood loss Malabsorption of iron Expected: 05/05/2022, Expires: 07/05/2022 [facility] Work Phone: Comment on above: Expected: 05/05/2022 , Expires: 07/05/2022 Start: 05-03-2022 End: 07-03-2022 Comprehensive metabolic 2000 panel - Serum or Plasma COMP METABOLIC PANEL Lab Routine Iron deficiency anemia due to chronic blood loss Expected: 05/03/2022, Expires: 07/03/2022 [facility] Work Phone: Comment on above: Expected: 05/03/2022 , Expires: 07/03/2022 Start: 04-28-2022 Pelvic echography US pelvic complete [facility] Start: 04-28-2022 US Pelvis [facility] Start: 04-28-2022 CT Abdomen and Pelvi s WO contrast [facility] Start: 04-28-2022 CT of abdomen and pe lvis without contrast CT abdomen pelvis wo con [facility] Start: 04-28-2022 Transvaginal echography US transvagi nal [facility] Start: 04-28-2022 US Pelvis transvaginal [facility] Start: 02-23-2022 End: 02-20-2023 CBC W Auto Differential panel - Blood CBC + DIFF Lab Routine Iron deficiency anemia due to chronic blood loss Expected: 02/23/2022 (Approximate), Expires: 02/20/2023 [facility] Work Phone: Comment on above: Expected: 02/23/2022 (Approximate), Expires: 02/20/2023 Start: 02-23-2022 End: 02-20-2023 Cobalamin (Vitamin B12) [Mass/volume] in Serum or Plasma VITAMIN B12 BLOOD Lab Routine Iron deficiency anemia due to chronic blood loss Expected: 02/23/2022 (Approximate), Expires: 02/20/2023 [facility] Work Phone: Comment on above: Expected: 02/23/2022 (Approximate), Expires: 02/20/2023 Start: 02-23-2022 End: 02-20-2023 Comprehensive metabolic 2000 panel - Serum or Plasma COMP METABOLIC PANEL Lab Routine Iron deficiency anemia due to chronic blood loss Expected: 02/23/2022 (Approximate), Expires: 02/20/2023 [facility] Work Phone: Comment on above: Expected: 02/23/2022 (Approximate), Expires: 02/20/2023 Start: 02-23-2022 End: 02-20-2023 Ferritin [Mass/volume] in Serum or Plasma FERRITIN BLD Lab Routine Iron deficiency anemia due to chronic blood loss Expected: 02/23/2022 (Approximate), Expires: 02/20/2023 [facility] Work Phone: Comment on above: Expected: 02/23/2022 (Approximate), Expires: 02/20/2023 Start: 02-23-2022 End: 02-20-2023 Folate [Mass/volume] in Serum or Plasma FOLATE SERUM Lab Routine Iron deficiency anemia due to chronic blood loss Expected: 02/23/2022 (Approximate), Expires: 02/20/2023 [facility] Work Phone: Comment on above: Expected: 02/23/2022 (Approximate), Expires: 02/20/2023 Start: 02-23-2022 End: 02-20-2023 Iron and Iron binding capacity panel - Serum or Plasma IRON + TIBC Lab Routine Iron deficiency anemia due to chronic blood loss Expected: 02/23/2022 (Approximate), Expires: 02/20/2023 [facility] Work Phone: Comment on above: Expected: 02/23/2022 (Approximate), Expires: 02/20/2023 Start: 02-11-2022 Influenza vaccination INFLUENZA (#1) [facility] Start: 06-13-2021 DEPRESSION ASSESSMENT DEPRESSION ASS ESSMENT [facility] Start: 11-30-2020 COVID-19 VACCINE (3 - Booster for Moderna series) COVID-19 VACCINE (3 - Booster for Moderna series) [facility] Start: 08-27-2020 COVID-19 VACCINE (3 - Booster for Moderna series) COVID-19 VACCINE (3 - Booster for Moderna series) [facility] Start: 2017 HPV TESTING HPV TESTING [facility] Start: 2017 Screening for malign ant neoplasm of cervix [facility] Start: 01-11-2008 PAP TESTING PAP TESTING [facility] Start: 01-11-2008 Screening for malign ant neoplasm of cervix Pap smear [facility] Start: 2006 DTaP/Tdap/Td vaccine (1 - Tdap) DTaP/Tdap/Td vaccine (1 - Tdap) [facility] Start: 2006 Hepatitis B vaccine (1 of 3 - 19+ 3-dose series) Hepatitis B vaccine (1 of 3 - 19+ 3-dose series) [facility] Start: 2006 Urine microalbumin profile DTAP,TDAP,TD (1 - Tdap) [facility] Start: 2005 HEPATITIS C SCREENING HEPATITIS C SC REENING [facility] Start: 2005 Hepatitis C screening Hepatitis C sc reen [facility] Start: 2005 HIV SCREENING HIV SCREENING [facility] Start: 2002 HIV screening HIV screen [facility] Start: 01-11-2000 Varicella vaccine (1 of 2 - 13+ 2-dose series) Varicella vaccine (1 of 2 - 13+ 2-dose series) [facility] Start: 1999 Adult depression screening assessment DEPRESSION SCREENING [facility] Start: 1999 Depression Screen Depression Screen [facility] Start: 01-11-1988 Varicella vaccine (1 of 2 - 2-dose childhood series) Varicella vaccine (1 of 2 - 2-dose childhood series) [facility] [facility] Start: 1987 HEPATITIS B (1 of 3 - 3-dose series) HEPATITIS B (1 of 3 - 3-dose series) [facility] Start: 1987 Hepatitis B vaccine (1 of 3 - 3-dose series) Hepatitis B vaccine (1 of 3 - 3-dose series) [facility] CT Sinuses WO contrast [facility] Patient Education [facility] Work Phone: Patient referral [facility] Work Phone: [facility] Immunizations Immunization Date Immunization Notes Care Provider [place] 03-13-2023 influenza, injectable, quadrivalent, preservative free Jennifer Duran Other [facility] 03-31-2021 influenza, seasonal, injectable Jennifer Duran Other [facility] 07-02-2020 COVID-19 Vaccine Moderna - Documentation Purposes Only Jennifer Duran Other [facility] 06-04-2020 COVID-19 Vaccine Moderna - Documentation Purposes Only Jennifer Duran Other [facility] 12-10-2008 measles, mumps and rubella virus vaccine Yamilka Bj [facility] NEGATED: Highlighted row has not occurred!03-23-2019 influenza, seasonal, injectable Patient Objection Jennifer Enochivelisse Other [facility] Payers Date Payer Category Payer Self-pay [id number] 2018 Unknown [id number] 1987 Unknown [id number] 2.16.84 0.1.567639.3.579.2.593 1987 Unknown [id number] 2.16.8 40.1.934409.3.579.2.182 1987 Unknown [id number] 2.16.8 40.1.756702.3.579.2.727 1987 Unknown [id number] 2.16.8 40.1.365086.3.579.2.727 1987 Unknown [id number] 2.16.8 40.1.948205.3.579.2.727 1987 Unknown [id number] 2.16.8 40.1.142986.3.579.2.727 1987 Unknown [id number] 2.16.8 40.1.257583.3.579.2.727 1987 Unknown [id number] 2.16.84 0.1.109207.3.579.2.1259 1987 Unknown [id number] 2.16.8 40.1.916521.3.579.2.1286 1987 Unknown [id number] 2.16.8 40.1.045357.3.579.2.1286 1987 Unknown [id number] 2.16.8 40.1.029043.3.579.2.174 1987 Unknown [id number] 2.16.8 40.1.230061.3.579.2.174 1987 Unknown [id number] 2.16.8 40.1.372782.3.579.2.174 1987 Unknown [id number] 2.16.8 40.1.584074.3.579.2.1286 1987 Unknown [id number] 2.16.8 40.1.137825.3.579.2.1286 1987 Unknown [id number] 2.16.8 40.1.715592.3.579.2.6 1987 Unknown [id number] 2.16.8 40.1.417860.3.579.2.128 1987 Unknown [id number] 2.16.8 40.1.957526.3.579.2.128 1987 Unknown [id number] 2.16.8 40.1.918375.3.579.2.1286 1959 Unknown [id number] Unknown [id number] Unknown [id number] Unknown [id number] 2.16.8 40.1.594332.3.579.2.531 Unknown [id number] 2.16.8 40.1.985760.3.579.2.531 Unknown [id number] 2.16.8 40.1.984452.3.579.2.531 Unknown [id number] 2.16.8 40.1.837390.3.579.2.531 Unknown [id number] 2.16.8 40.1.989755.3.579.2.531 Social History Date Type Detail Facility Start: 09-14-2021 End: 05-30-2023 Tobacco smoking status NHIS Never smoked tobacco (finding) [facility] Start: 1985 Sex Assigned At Female [facility] Tobacco smoking status Never [facility] Start: 05-30-2023 End: 09-05-2023 Sex Assigned At Female [facility] [employer] Other Start: 04-05-2018 End: 05-30-2023 Tobacco use and exposure Smokeless tobacco non-user [facility] Start: 10-27-2020 End: 03-10-2022 Alcohol intake Current drinker of alcohol (finding) [facility] Start: 04-05-2018 History SDOH Alcohol Comment socially [facility] Start: 1987 Sex Assigned At Not on file [facility] Start: 02-06-2022 End: 04-09-2022 Exposure to SARS-CoV-2 (event) Not sure [facility] History of tobacco use Passive smoker [facility] Start: 09-05-2023 End: 01-22-2024 Alcohol intake Not Asked [facility] [facility] Start: 05-30-2023 End: 09-05-2023 History of Social function [facility] How often to you hav e a drink containing alcohol? Monthly or less [facility] How many standard drinks containing alcohol do you have on a typical day? 1 or 2 [facility] How often do you hav e 6 or more drinks on 1 occasion? Less than monthly [facility] Start: 05-30-2023 Alcohol Comment social [employer] [facility] Goals Date Patient Goal Desired Activity /State Functional Status Date Assessment Result Facility 09-29-2023 Functional Status N/A [facility] 09-26-2023 Functional Status N/A [facility] 07-31-2023 Functional Status N/A [facility] 04-24-2023 Functional Status N/A [facility] 03-29-2023 Functional status Patient at Baseline [facility] Work Phone: 12-04-2021 Functional Status N/A [facility] Mental Status Date Assessment Result Facility 03-29-2023 Cognitive function Cognitive Sta tus Patient at Baseline [facility] Work Phone: Clinical Notes 03-19-2019 to 01-22-2024 Discharge InstructionsAttachmentsDischarge InstructionsAttachments Note Date & Type Note Facility 01-22-2024 Hospital Discharg e instructions Eren Camejo DO - 01/22/2024 12:25 PM EDT Use Ultram as needed for pain. Call Dr. Braden for follow-up appointment for reevaluation of symptoms and further pain control if needed. Return to the ER for worsening pain or if you develop any vaginal bleeding or vaginal discharge or fevers or chills or intractable nausea or vomiting. The following attachments cannot be sent through Care Everywhere.Ovarian Cyst: Functional (Dominican)documented in this encounter [facility] 11-08-2023 [facility] Discharg e instructions Eren Camejo DO - 11/08/2023 12:01 PM EDT Use clindamycin as prescribed. Continue the pain medicine that you have at home as needed for pain. Follow-up with dentist as scheduled The following attachments cannot be sent through Care Everywhere.Tooth and Gum Pain (Dominican)documented in this encounter [facility] 10-18-2023 Evaluation note Authored October 18, 2023 3:45pm The above note written by __ _Polly Collado____ acting as human recorder, note dictated by Dr. Mcfadden .I performed the above HPI, ROS, and Examination. I formulated and dictated the treatment plan and was present for entire encounter. Jennifer Duran D.O. [facility] Work Phone: 1(287) 240-237104-19-2024 Evaluation + Plan noteExtracted from: Title:ED Note Author:Ritesh Heath DOEbenezer Date :09/30/23 AP (abdominal pain) (R10.9: Unspecified [...] Diagnostic Tests Pending * Urine Culture 09/30/23 [facility]04-19-2024 Hospital Discharge instructions Patient Education 09/30/2023 [...] (oophorectomy). Follow these instructions at home: Take dwpx-gbq-ucvscda and prescription medicines only as told by [...] provider. Document Revised: 11/06/2020 Document Reviewed: 11/06/2020 [employer] Patient Education 2022 [employer]. Follow Up Care 09/29/2023 23:40:10 With:Ino Royal Address: [address] [place] [address]- Business (1) When:10/03/2023 [facility]04-15-2024 Hospital Discharge instructions Follow Up Care 09/26/2023 13:55:08 With:[employer] [facility] Address: [address] [place] [address]- Business (1) When:09/29/2023 17:49:12 With:Tarun BRADEN Address: [address] [place] [address]- Business (1) When:09/29/2023 17:49:03 With:XXXX NONE Address: [place] When:Within 3 Day(s) [facility]04-15-2024 Evaluation + Plan noteExtracted from: Title:ED Note Author:Fredrick GRULLON Student, Sujey in [place] Date:09/26/23 Abdominal pain (R10.9: Unspe cified abdominal [...] q12hr, # 20 tab(s), Refills(s) 0, Pharmacy: [facility]/pharmacy #[id number], 165, cm, 09/26/23 14:18:00 EDT, Height/Length Dosing, 81.2, kg, 09/26/23 14:18:00 EDT, Weight Dosing hyoscyamine, 0.125 mg = 1 tab(s), Oral, QID, X 5 day(s), # 20 tab(s), Refills(s) 0, Pharmacy: [facility]/pharmacy #[id number], 165, cm, 09/26/23 14:18:00 EDT, Height/Length Dosing, 81.2, kg, 09/26/23 14:18:00 EDT, Weight Dosing ketorolac, 30 mg = 1 mL, Injection, IV, Once, Stop date 09/26/23 15:40:00 EDT, STAT, Start date 09/26/23 15:40:00 EDT, 09/26/23 15:40:00 EDT polyethylene glycol 3350, 17 gm, Oral, Daily, X 7 day(s), # 119 gm, Refills(s) 0, Pharmacy: [facility]/pharmacy #[id number], 165, cm, 09/26/23 14:18:00 EDT, Height/Length Dosing, 81.2, kg, 09/26/23 14:18:00 EDT, Weight Dosing Beta hCG Qual CBC w/ Auto Diff Comprehensive Metabolic Panel CT Abdomen/Pelvis w/ Contrast Drug Screen Urine eGFR Extra Blue Tube Extra SST Tube Lipase Level UA with Cult Rflx US Pelvis Non-OB Complete US Transvaginal Non-OB [facility]02-18-2024 Hospital Discharge instructions Patient Education 07/31/2023 [...] Follow these instructions at home: Medicines Take ulya-cac-eejpijt and prescription medicines only as told by [...] Watch your condition for any changes. Take sbmy-jun-zdnbmsl and prescription medicines only as told by [...] provider. Document Revised: 07/18/2020 Document Reviewed: 10/08/2019 [employer] Patient Education 2022 [employer]. Follow Up Care 07/31/2023 15:34:13 With:Follow-up with your [facility] HANDLER at [facility] Address:Unknown When:08/03/2023 17:52:19 Comments:Call the office [...] weakness, or any new or worsening symptoms. [facility]02-15-2024 Evaluation note* Author Jennifer Duran [facility] Authored July 28, 2023 1:18pm The above note written by __ _Polly Collado____ acting as human recorder, note dictated by Dr. Mcfadden .I performed the above HPI, ROS, and Examination. I formulated and dictated the treatment plan and was present for entire encounter. Jennifer Duran D.O. [facility] Work Phone: 1(194) 587-759502-06-2024 Evaluation note* Encounter Date Diagnosis Assessment Notes Treatment Notes Treatment Clinical Notes Jul, Anxiety (ICD-10 - F41.9) [facility] Other 02-06-2024 Evaluation note* Encounter Date Diagnosis [...] an appointment with her specialist through the [facility] and is scheduled at the end of this month (July) and is hoping to have a total hysterectomy. [facility] Other 12-26-2023 Evaluation note* Encounter Date Diagnosis Assessment Notes Treatment Notes Treatment Clinical Notes May, Cough (ICD-10 - R05.9) [facility] Other 12-04-2023 Evaluation note* Encounter Date Diagnosis Assessment Notes Treatment Notes Treatment Clinical Notes May, Anxiety (ICD-10 - F41.9) [facility] Other 11-12-2023 Hospital Discharge instructions Patient Education [...] Follow these instructions at home: Medicines Take toie-viw-gyajsxs and prescription medicines only as told by [...] Watch your condition for any changes. Take isxl-ekb-zkhdimj and prescription medicines only as told by [...] provider. Document Revised: 07/18/2020 Document Reviewed: 10/08/2019 [employer] Patient Education 2022 [employer]. Follow Up Care 04/24/2023 13:13:55 With:YOUR OBGYN at [facility] Address:Unknown When:04/27/2023 15:50:22 Comments:Seek immediate medical attention [...] develop any new or worsening symptoms. 3. [facility]11-12-2023 Evaluation + Plan noteExtracted from: Title:ED Note Author:Jignesh Dumont DO Date:06/24/22 Abdominal pain, acute, left lower quadrant (R10.32: Left lower quadrant pain) Ordered: oxycodone, 5 mg = 1 cap(s), Oral, q6hr, PRN Pain 8-10, X 3 day(s), # 12 cap(s), Refills(s) 0, Pharmacy: [facility]/pharmacy #[id number], 165.1, cm, 04/24/23 13:32:00 EST, Height/Length Dosing, [...] Saline Lock Insert UA With Cult Reflex [facility]11-06-2023 Evaluation note* Encounter Date Diagnosis Assessment [...] an appointment with her specialist at the [facility] in June (2023) which was the soonest they could get her in. She is hoping that they will at least remove the ovary but she is willing to have a total hysterectomy if they will do it. 1:13 PM - 1:20 PM [facility] Other 10-20-2023 Evaluation note* Encounter Date Diagnosis Assessment Notes Treatment Notes Treatment Clinical Notes Mar, Anxiety (ICD-10 - F41.9) [facility] [employer] Other 10-17-2023 Progress note Author Christi Aquino [facility] March 29, 2023 4:11pm Note Date/Time March 29, 2023 1 1:35am [facility] [address] [place] [address] Progress Note Signed with Lester Patient: Livia Noyola MR#: [id number] : 1985 Acct:[id number] Age/Sex: 38 / F Adm Date: 3 Loc: Room: 2V5647-1 Type: ADM IN Attending Dr: Christi Aquino MD Copies to: ~ ADDENDUM1 Upon re-evaluation in the afternoon, patient feels better and would like to go home. Prescribed pain medications as needed as directed. Advised to continue to follow up with [facility] staff bulk folder. 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 Discussed with patient and her mother at bedside. All questions answered. She is in agreement and comfortable with discharge plan with these prescriptions. Addendum Documented By: Christi Aquino MD 03/29/23 161 Addendum Signed By: <Electronically signed by Christi Aquino MD> 03/29/23 161 Date of Service: 03/29/2023 Progress Narrative Note Intractable abdominal pain, possibly due to endometriosis rule out other etiologies PROGRESS NOTE Progress Note: Patient was seen and evaluated at bedside this morning. she was admitted overnight by overnight hospitalist. Refer to H&P for further details. She is requiring multiple IV pain medications. Still with abdominal pain mostly left sided. bulk folder eval requested for further evaluation. Patient has complex bulk folder hx and been followed at [facility]. Afebrile here, no leukocytosis or obvious evidence of infectious process. Placed on Pain meds regimen IV and PO. Ongoing monitoringfor now. Documented By: Christi Aquino MD 03/29/23 11 32 Signed By: <Electronically signed by Christi Aquino MD> 03/29/23 [address] [facility] Work Phone: [phone]) 904-978410-17-2023 History and physical note Author Megan Muniz [facility] March 29, 2023 7:29am Note Date/Time March 29, 2023 7 :29am [facility] [address] [place] [address] Hospitalist H&P Signed Patient: Livia Noyola MR#: [id number] : 1985 Acct:[id number] Age/Sex: 38 / F Adm Date: 3 Loc: Room: [address] [place] [address] Type: ADM IN Attending Dr: Christi Aquino [...] findings. The patient case was discussed with BLOCK HANDLER, who was not convinced that left ovarian [...] Previous records in the computer system reviewed [facility] Medical History Anemia Endometriosis Surgical History [...] % (Auto) 42.8 % (.) 03/29/23 01:40 Kent % (Auto) 7.3 % (.) 03/29/23 01:40 Eos % (Auto) 1.8 % (.) 03/29/23 01:40 Baso % (Auto) 1.3 % (.) 03/29/23 01:40 Nucleat RBC Rel Count 0.1 /100 WBC (0-0.5) 03/29/23 01:40 Neut # (Auto) 3.5 x10E3/uL (1.8-7.7) 03/29/23 01:40 Lymph # (Auto) 3.2 x10E3/uL (1.00-4.8) 03/29/23 01:40 Kent # (Auto) 0.6 x10E3/uL (0.0-0.8) 03/29/23 01:40 [...] pH 7.5 (5.0-9.0) 03/29/23 02:53 Ur Specific Sumrall 1.003 (1.001-1.030) 03/29/23 02:53 Urine Protein Negative [...] she does have tachycardia We will consult BLOCK HANDLER Check lactic acid 2. Microcytic iron deficiency [...] <Electronically signed by Megan Muniz MD> 03/29/23728 [facility] Work Phone: [phone]) 531-809708-02-2023 Evaluation note* Encounter Date Diagnosis Assessment Notes [...] relief. She would need to see an implementation specialist for this. She is agreeable to [...] an appointment to see Dr. Castillo again. [facility] Other 06-29-2023 Evaluation note* Encounter Date Diagnosis Assessment Notes Treatment Notes Treatment Clinical Notes Nov, Acute sinusitis (ICD-10 - J01.90) Nov, Cough (ICD-10 - R05.9) [facility] Other 05-01-2023 Evaluation note* Encounter Date Diagnosis [...] no discrepancies noted. Rx was called into [facility], spoke with Chad TOWNSEND, the Xanax 0.25 MG tablets are out of stock currently so her dose was increased to 0.5 MG and she was instructed to take 1/2 tablet q8-12 hours as needed. Only 12 tablets were called in. Pt voiced understanding when notified of this change. October, Other 3:17 PM - 3:23 PM [facility] Other 04-12-2023 Evaluation note* Encounter Date Diagnosis [...] Sep, Other 12:46 PM - 12:51 PM [facility] Other 01-30-2023 Evaluation note* Encounter Date Diagnosis Assessment Notes Treatment Notes Treatment Clinical Notes Jun, Anxiety (ICD-10 - F41.9) [facility] Other 01-30-2023 Evaluation note* Encounter Date Diagnosis [...] Side effects/risks/benefi ts of medication were reviewed. [facility] Other 12-21-2022 Evaluation note* Encounter Date Diagnosis [...] May, Other 3:27 PM - 3:32 PM [facility] Other 11-18-2022 Miscellaneous Notes* Telephone Encounter - Tabby Steele Ma - 04/30/2022 2:25 PM EST CMP if needed. Tabby Steele Ma documented in this encounterUniversity [facility]10-[facility]-2022 Evaluation note* Encounter Date Diagnosis Assessment Notes Treatment Notes Treatment Clinical Notes Mar, Anxiety (ICD-10 - F41.9) [facility] Other 10-31-2022 Evaluation note* Encounter Date Diagnosis [...] done and then return to see her BLOCK HANDLER at the [facility] because she feel she has another ovarian cyst. [facility] Other 10-28-2022 Miscellaneous Notes* Allied Health - [...] 2:21 PM PAGER/CONTACT #: documented in this encounterUniversity Hospitals [facility]10-03-2022 Miscellaneous Notes* Telephone Encounter - MARY Narvaez - 03/15/2022 12:04 PM EDT Patient appears on the First Time Treatment List for a non-oncology treatment. No psychosocial assessment is indicated. JANNA Narvaez documented in this encounterUniversity Hospitals Ely[facility] Center09-28-2022 NoteHNO ID: [id number] Author: Gil Ni APRN.STAFFING BRANCH MANAGER Service: ? 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 Recent laboratories from [facility] October 04, 2020 show hemoglobin of 11.6 [...] and removal ovarian cyst (more content not included)...[facility] History of Present illness Narrative* Gil Ni APRN.CNP - 03/10/2022 2:00 PM EDT Images from the original note were not included. 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 Recent laboratories from [facility] October 04, 2020 show hemoglobin of11.6 but [...] Hyperlipidemia Father Heart Father bypass surgery, stents, [place] Gil Ni APRN.CNP [place], [place] CC: Dr. Jennifer Duran [address] [place] [phone] I spent a total of 30 minutes on the date of the service which included preparing to see the patient, wocu-uq-hvde patient care, completing clinical documentation, obtaining and/or reviewing separately obtained history, performing a medically appropriate examination, counseling and educating the pat ient/family/caregiver, ordering medications, tests, or procedures, independently interpreting results (not separately reported), and communicating results to the patient/family/caregiver. documented in this encounterUniversity Hospitals Elyria [facility] Center09-08-2022 Miscellaneous Notes* Telephone Encounter - Meaghan Ordonez - 02/18/2022 3:14 PM EDT Patient has an appt on 02/23. Would you like labs? documented in this encounterUniversity Hospitals Ely[facility]09-06-2022 Evaluation note* Encounter Date Diagnosis Assessment Notes Treatment Notes Treatment Clinical Notes Feb, Iron deficiency anemia (ICD-10 - D50.9) Feb, Elevated liver enzymes (ICD-10 - R74.8) [facility] Other 07-28-2022 Evaluation note* Encounter Date Diagnosis Assessment Notes Treatment Notes Treatment Clinical Notes Dec, Anxiety (ICD-10 - F41.9) [facility] Other 06-24-2022 Hospital Discharge instructions Patient Education [...] develop this condition: Playing sports that include jwmp-ds-tywx contact with others. Having a skin condition [...] Follow these instructions at home: Medicines Take oxlz-wse-shykbes and prescription medicines only as told by [...] 06/20/2015 Document Revised: 07/10/2019 Document Reviewed: 06/21/2017 [employer] Patient Education 2020 [employer]. 12/04/2021 13:59:11 Sinusitis, Adult Sinusitis, Adult Sinusitis [...] at home: Medicines Take, use, or apply dtfv-vnz-eeakffv and prescription medicines only as told by [...] and water are not available, use hand licensing manager. Do not smoke. Avoid being around people [...] 05/30/2006 Document Revised: 10/30/2018 Document Reviewed: 10/30/2018 [employer] Patient Education 2020 [employer]. 12/04/2021 13:59:10 BMI for Adults BMI for [...] 02/08/2005 Document Revised: 05/12/2018 Document Reviewed: 04/12/2018 [employer] Patient Education 2019 [employer]. [facility] 05-06-2022 Evaluation note* Encounter Date [...] October, Other 8:28 AM - 8:35 AM [facility] Other 03-01-2022 Evaluation note* Encounter Date Diagnosis Assessment Notes Treatment Notes Treatment Clinical Notes Aug, Cough (ICD-10 - R05) [facility] Other 02-21-2022 Evaluation note* Encounter Date Diagnosis [...] Jul, Other 5:43 PM - 5:48 PM [facility] Other 12-06-2021 Evaluation note* Encounter Date Diagnosis [...] May, Other 4:25 PM - 4:38 PM [facility] Other 11-09-2021 Evaluation note* Encounter Date Diagnosis [...] R63.5) Her TSH is normal at 1.04. [facility] Other 10-07-2019 History general Narrative - Reported* Type Description Date Medical History endometriosis 2012 Medical History Echocardiogram [employer] [facility] Normal, ejection fraction 60-65% Medical History MRI Brain 03-21-19 [employer] [facility] [facility] [place], Normal Medical History anxiety Medical History pneumonia 06/2019 Surgical History Cholecystectomy Surgical History gal bladder removed 2008 Surgical History ablation - endometri osis removed off ovaries Dr Lentz 2012 Surgical History ovarian torsion 2014 Surgical History MRI pelvis 2017 Surgical History ovarian cyst removed 06/2018 Hospitalization History see above [facility] Other Consult note Author Geraldo Hatfield [facility] April 28, 2022 8:22am Note Date/Time April 28, 2022 8:22am [facility] [address] [place], [place] [id number] 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 04/28/22 02:00: Urine Color Yellow, Urine Appearance Cloudy A, Urine pH 6.5, Ur Specific Sumrall 1.005, Urine Protein Negative, Urine Glucose (UA) [...] Creatinine Clear 132.36, Sodium 137, Potassium 3.7, [id number], Carbon Dioxide 21.1 L, Anion Gap 14.6, [...] % (Auto) 64.6, Lymph % (Auto) 28.9, Kent % (Auto) 4.5, Eos % (Auto) 1.0, Baso % (Auto) 1.0, Neut # (Auto) 5.1, Lymph # (Auto) 2.3, Kent # (Auto) 0.4, Eos # (Auto) 0.1, Baso # (Auto) 0.1, Nucleated RBC % (auto) 0.0, Platelet Estimate Normal, Plt Morphology Comment Normal, RBC Morphology N/A, Polychromasia Slight, Hypochromasia Slight, Poikilocytosis Moderate, Anisocytosis Marked, Tear Drop Cells Slight, Ovalocytes Moderate 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 loss- Primary Iron deficiency anemia secondary to blood loss (chronic) [facility] 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 [facility] Diagnosis 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 Cyst of left ovary Other and unspecified ovarian cyst [facility] Diagnosis 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 Cyst of left ovary Other and unspecified ovarian cyst [facility] Diagnosis Iron deficiency anemia due to chronic blood loss- Primary Iron deficiency anemia secondary to blood loss (chronic) [facility] Diagnosis Onset Date Resolution Status Abdominal pain acute Ovarian cyst acute [facility] Work Phone: Evaluation note* Diagnosis Onset Date Resolution Status Abdominal pain acute Endometriosis acute Ovarian cyst acute [facility] Work Phone: Evaluation note* Author Jennifer Duran [facility] Authored July 28, 2023 12:18pm The above note written by __ _Polly Collado____ acting as human recorder, note dictated by _Wilber .I performed the above HPI, ROS, and Examination. I formulated and dictated the treatment plan and was present for entire encounter. Jennifer Duran D.O. [facility] Work Phone: Evaluation note* Diagnosis Toothache- Primary Unspecified disorder of the teeth and supporting structures documented in this encounter [facility] note* Diagnosis Onset Date Resolution Status Anxiety acute Tachycardia acute [facility] Work Phone: Evaluation note* Diagnosis Cyst of left ovary- Primary Other and unspecified ovarian cyst [facility] Additional Instructions Please arrange a follow-up appointment with your [facility] trauma coordinator.[facility] Work Phone: Hospital Discharge instructions Additional Instructions Take Motrin and Tylenol as needed for mild to moderate pain. Take oxycodone as prescribed for severe pain. Follow-up with Dr. Ness or Dr. Grayson in the office regarding further treatment with a GnRH antagonistSelect [facility] Work Phone: Hospital Discharge instructions Additional Instructions Take Salem as needed for severe pain, do not drink, drive, operate heavy machinery while taking Continue clindamycin as previously ordered by her dentist Return to emergency room for fever or chills, or dental abscess Follow-up with dentist and oral surgeon as scheduled[facility] Work Phone: Hospital Discharge instructionsAmbulatory Orders* Referral to Allergy/Immunology Time Frame: 12/07/23, Location: None Selected [facility] Work Phone: Progress note No data available for this section [facility] Summary Purpose Family History No Family History [...] Malignant neoplasm Unknown Not Specified Hypertension Unknown Relationship Condition Age at Onset Recorded Date/T romero father Heart disease Unknown grandparent Malignant neoplasm of breast Unknown Diabetes mellitus Unknown grandparent Unknown Malignant neoplasm Unknown grandparent Myocardial infarction Unknown Unknown Malignant neoplasm of breast Unknown grandparent Malignant neoplasm Unknown mother Hypertension Unknown Advance Directives No Advanced Directives [...] cough Acute sinusitis Fever Anxiety Cough Sinusitis Chief Complaint telephone/med refill tooth pain Reason for Visit Anxiety Cough Sinusitis Chief Complaint telephone/med refill tooth pain J32.9 R05.9 Reason for Visit Anxiety Cough Sinusitis Chief Complaint tooth pain J32.9 R05.9 med refill Reason for Visit Anxiety Tachycardia Reason for Referral Reason appt pt is elsiearmando robi to see whomever can see her first pt needs consult to discuss possible injection for right sided bursitis Diagnosis 1 Greater trochanteric bursitis of right hip (M70.61) Referral Organization [facility] Family [facility] Ale Referring Provider First Name Jennifer Referring Provider Last Name Wilber Referring Provider Specialty Family Prac kasi Referred Organization [facility] Referred Provider Chad Luna II Referred Address [address] [place], [place],[address] Referred Provider Specialty Orthopedic S urgery Referral Priority Routine General Notes Angelita Trevino 01/12/2023 03:51:47 PM > referral sent p2p. pt understands that she will be contacted to schedule this appt. Reason appt consult for e zia and treatment of continued cough since covid infection Diagnosis 1 Cough (R05) Referral Organization [facility] Referring Provider First Name Jennifer Referring Provider Last Name Wilber Referring Provider Specialty Family Prac kasi Referred Organization Unknown Facility Referred Provider Steve Donald Referred Provider Specialty Pulmonary Sally henriquezes Referral Priority Routine General Notes TrevinoAngelita bush 08/11/2021 01:41:41 PM > referral faxed with [...] section and content) DATE CREATED AUTHOR 08/08/2020 [facility] DATE CREATED AUTHOR AUTHOR'S ORGANIZ ATION 05/03/2022 [facility] DATE CREATED AUTHOR AUTHOR'S ORGANIZ ATION 10/19/2022 [facility] DATE CREATED AUTHOR AUTHOR'S ORGANIZ ATION 06/23/2023 [facility] DATE CREATED AUTHOR AUTHOR'S ORGANIZ ATION 09/06/2023 [facility] DATE CREATED AUTHOR AUTHOR'S ORGANIZ ATION 10/02/2023 [facility] DATE CREATED AUTHOR AUTHOR'S ORGANIZ ATION 10/21/2023 [facility] dical [facility] DATE CREATED AUTHOR AUTHOR'S ORGANIZ ATION 11/24/2023 [facility] DATE CREATED AUTHOR AUTHOR'S ORGANIZ ATION 11/27/2023 [facility] DATE CREATED AUTHOR AUTHOR'S ORGANIZ ATION 01/23/2024 [facility] DATE CREATED AUTHOR AUTHOR'S ORGANIZ ATION 01/30/2024 [facility] Care Teams (unrecognized sec tion and content) Team Status: Inactive Member Role Status Dates Jennifer Duran , Primary Care Provider, Attending Pro vider Active Team Status: Active Member Role Status Dates Jennifer Duran , Primary Care Provider Active Team Status: Inactive Member Role Status Dates Jennifer Duran , Primary Care Provider Active Augustus Santiago DO Attending Provider Active Team Status: Inactive Member Role Status Dates Jennifer Duran , DO Primary Care Provider Active Amaury Barlow , Emergency Provider Active Infrastructure Technician Relationship Specialty Start Date End Date Jennifer Duran, DO [address] [place] [id number] PCP - General 11/27/07 Jennifer Duran, DO [address] [place] [address] Referring Family Practice 04/03/19 Avinash Velásquez MD [address] [facility] [address] [place] [address] Referring BLOCK HANDLER 11/30/21 Infrastructure Technician Relationship Specialty Start Date End Date Jennifer Duran, DO [address] [place] [address] PCP - General 11/27/07 Jennifer Duran, DO [address] [place] [address] Referring Family Medicine 04/03/19 Avinash Velásquez MD [address] [address] [place] [address] Referring BLOCK HANDLER 11/30/21 Infrastructure Technician Relationship Specialty Start Date End Date Jennifer Duran, DO [address] [place] [address] PCP - General 11/27/07 Jennifer Duran, DO [address] [place] [address] Referring Family Medicine 04/03/19 Avinash Velásquez MD [address] [place] [address] Referring BLOCK HANDLER 11/30/21 Infrastructure Technician Relationship Specialty Start Date End Date Jennifer Duran, DO [address] [place] [address] PCP - General 11/27/07 Jennifer Duran, DO [address] [place] [address] Referring Family Medicine 04/03/19 Avinash Velásquez MD [address] [place] [address] Referring BLOCK HANDLER 11/30/21 Infrastructure Technician Relationship Specialty Start Date End Date Jennifer Duran, DO [address] [place] [address] PCP - General 11/27/07 Jennifer Duran, DO [address] [place] [address] Referring Family Medicine 04/03/19 Avinash Velásquez MD [address] [place] [address] Referring BLOCK HANDLER 11/30/21 Infrastructure Technician Relationship Specialty Start Date End Date Jennifer Duran, DO [address] [place] [address] PCP - General 11/27/07 Jennifer Duran, DO [address] [place] [address] Referring Family Medicine 04/03/19 Avinash Velásquez MD [address] [place] [address] Referring BLOCK HANDLER 11/30/21 Team Status: Active Member Role Status Dates Jennifer Duran , DO Primary Care Provider Active Yevgeniy Cabrera Jr, MD Emergency Provider Active Kiko Saenz , DO Admit Provider, Attending Provider Active Infrastructure Technician Relationship Specialty Start Date End Date Jennifer Duran, DO [address] [place] [address] PCP - General 11/27/07 Jennifer Duran, DO [address] [place] [address] Referring Family Medicine 04/03/19 Avinash Velásquez MD [address] [place] [address] Referring BLOCK HANDLER 11/30/21 Team Status: Inactive Member Role Status [...] Care Provider Active Jaime Aleman , DO [facility] Attending Provider Active Team Status: Active Member [...] 2023 Team Status: Inactive Member Role Status Austin Duran DO Primary Care Provide r, Attending Provider Active Start: July 28, 2023 End: July 28, 2023 Team Status: Inactive Member Role Status Austin Duran DO Primary Care Provide r, Attending Provider Active Start: October 18, 2023 End: October 18, 2023 Infrastructure Technician Relationship Specialty Start Date End Date Jennifer Duran DO [address] [place] [address] PCP - General Family Medicine 09/14/23 Team Status: Inactive Member Role Status Austin Duran DO Primary Care Provider Active S tart: November 08, 2023 End: November 08, 2023 Imani Corbett APRN Emergency Provider Active Start: November 08, 2023 End: November 08, 2023 Team Status: Inactive Member Role Status Austin Duran DO Primary Care Provide r, Attending Provider Active Start: November 25, 2023 End: November 25, 2023 Team Status: Active Member Role Status Austin Duran DO Primary Care Provide r, Attending Provider Active Start: December 07, 2023 Team Status: Inactive Member Role Status Austin Duran DO Primary Care Provide r, Attending Provider Active Start: January 19, 2024 End: January 19, 2024 Goals (unrecognized section and content) Goals may [...] sectionGoals may be documented in an alternate sectionGoals may be documented in an alternate sectionGoals may be documented in an alternate sectionGoals may be documented in an alternate sectionGoals may be documented in an alternate [...] SUCROSE INJECTION PER 1 MG Gil Ni, [address] [place] [address] Johny Treat Dodge [address] [place] [address] Referral ID Status Reason Start Date Expiration Date V isits Requested Visits Authorized [id number] Authorized 03/10/2022 06/12/2022 99 99 Reason Comments Art Therapy Reason Comments Dental Pain Right lower, has luis t for root canal for mid tylenol, toradol and tramadolCalled dentist today and they are out of office Reason Comments Abdominal Pain C/o lower left abdom inal pain, pain started at 4 am, took ibuprofen 800 mg, tylenol 1000 mg, Toradol 30 mg, with no relief. H/o ovarian cysts. Source Comments (unrecognize d section and content) In the event this informatio n is protected by the Federal Confidentiality of Alcohol and Drug Abuse Patient Records regulations: The Federal rules restrict any use of the information to criminally investigate or prosecute any alcohol or drug abuse patient.[facility] the event this information is protected by the Federal Confidentiality of Alcohol and Drug Abuse Patient Records regulations: The Federal rules restrict any use of the information to criminally investigate or prosecute any alcohol or drug abuse patient.[facility] the event this information is protected by the Federal Confidentiality of Alcohol and Drug Abuse Patient Records regulations: The Federal rules restrict any use of the information to criminally investigate or prosecute any alcohol or drug abuse patient.[facility] Center[facility] the event this information is protected by the Federal Confidentiality of Alcohol and Drug Abuse Patient Records regulations: The Federal rules restrict any use of the information to criminally investigate or prosecute any alcohol or drug abuse patient.[facility] Center[facility] the event this information is protected by the Federal Confidentiality of Alcohol and Drug Abuse Patient Records regulations: The Federal rules restrict any use of the information to criminally investigate or prosecute any alcohol or drug abuse patient.[facility] Center[facility] the event this information is protected by the Federal Confidentiality of Alcohol and Drug Abuse Patient Records regulations: The Federal rules restrict any use of the information to criminally investigate or prosecute any alcohol or drug abuse patient.[facility] CenterIn the event this information is protected by the Federal Confidentiality of Alcohol and Drug Abuse Patient Records regulations: The Federal rules restrict any use of the information to criminally investigate or prosecute any alcohol or drug abuse patient.[facility] Ordered Prescriptions (unrec ognized section and content) Prescription Sig Dispensed Refills Start Date End Da te clindamycin (CLEOCIN) 300 MG capsule Take 1 capsule by mouth 4 times daily for 10 days 40 capsule 0 11/08/2023 11/18/2023 Prescription Sig Dispensed Refills Start Date End Da te ondansetron (ZOFRAN-ODT) [address] 1 tablet under the tongue every 8 hours as needed for Nausea or Vomiting 10 tablet 01/22/2024 traMADol (ULTRAM) 50 MG tabletIndications:Cyst of left ovary Take 1 tablet by mouth every 6 hours as needed for Pain for up to 3 days. Intended supply: 3 days. Take lowest dose possible to manage pain Max Daily Amount: 200 mg 12 tablet 01/22/2024 01/25/2024 Scheduled Active and Recently Administ ered Medications (unrecognized section and content) Medication Order 01/20/2024 01/21/2024 01/22/2024 traMADol (ULTRAM) tablet 50 mg (COMPLETED) 50 mg, Oral, ONCE, 1 dose, On 01/22/24 at 1230 1230 (Given - Provid er: Sylvia Johnson RN) FOR RECORDS PERTAINING TO PATIENTS WHO ARE [...] BE BASED ON THE PRIMARY CLINICAL RECORDS. [facility]. provides no warranty or guarantee of the accuracy or completeness of information in this document.
[2024-02-11 13:12] VITALS: BP 117/90; PULSE 104; TEMP 36.8; O2SAT 99; BMI 30.8
--- NOTE | 2024-02-11 13:28 | ED_ITS ---
HPI - Dental/Oral General Chief complaint: Dental/Oral Stated complaint: MOUTH PAIN Time Seen by Provider: 02/11/24 13:28 Source: patient Mode of arrival: walk-in Limitations: no limitations History of Present Illness HPI Narrative: This patient is here complaining of left-sided toothache. It is on the lower/mandibular side. She says she was doing fine but she cracked her tooth couple days ago. She does have a private dentist in [place] but because holiday weekend are not available. She has been using tramadol [id number] NSAIDs and nothing is helping. She has not noticed any obvious swelling. She started herself on Augmentin 2 times a day. She is hopeful to see the dentist on Tuesday. Related Data Home Medications ?Medication ?Instructions ?Recorded ?Confirmed alprazolam 0.25 mg tablet 0.25 mg PO Q8H PRN anxiety 09/20/23 02/11/24 citalopram 20 mg tablet (Celexa) 20 mg PO DAILY 09/20/23 02/11/24 atenolol 25 mg tablet 25 mg PO Q24H 02/11/24 02/11/24 Previous Rx's ?Medication ?Instructions ?Recorded ketorolac 10 mg tablet 10 mg PO TID PRN pain #10 tabs 10/22/23 tramadol 50 mg tablet 50 mg PO Q4H PRN pain 3 days #15 10/22/23 tabs Allergies Allergy/AdvReac Type Severity Reaction Status Date / Time morphine Allergy Severe itching Verified 02/11/24 13:19 prochlorperazine AdvReac Mild Anxiety Verified 02/11/24 13:19 [From Compazine] [facility] Medical History (Updated 02/11/24 @ 13:31 by Duong Arthur MD) Ovarian cyst ?N83.209 - Unspecified ovarian cyst, unspecified side (ICD-10) Endometriosis ?N80.9 - Endometriosis, unspecified (ICD-10) LLQ abdominal pain ?R10.32 - Left lower quadrant pain (ICD-10) Complex cyst of left ovary ?N83.292 - Other ovarian cyst, left side (ICD-10) Toothache ?K08.89 - Other specified disorders of teeth and supporting structures (ICD- 10) Surgical History (Updated 09/20/23 @ 06:52 by Marichuy Daily RN) History of removal of cyst ?Z98.890 - Other specified postprocedural states (ICD-10) History of cholecystectomy ?Z90.49 - Acquired absence of other specified parts of digestive tract (ICD- 10) Family History (Updated 09/20/23 @ 05:46 by Marichuy Daily RN) Family/Other No problems noted. Father Family history of CHF (congestive heart failure) Family history of COPD (chronic obstructive pulmonary disease) Family history of diabetes mellitus Family history of hypertension Family history of myocardial infarction Mother Family history of hypertension Other Family history of cancer Social History Within the past year, how often did you have a drink containing alcohol: monthly or less Within the past year, how many standard drinks containing alcohol did you have o n a typical day: 1 or 2 Within the past year, how often did you have six or more drinks on one occasion: never Total score: 0 Score interpretation: A score less than 3 is consistent with normal alcohol consumption. Smoking status: Never smoker Non-prescribed substance use: denies use Highest level of school completed/degree received: Associate degree: academic program Are you now , , , , never or living with a partner: In a typical week, how many times do you talk on the telephone with family, friends, or neighbors: 3 or more times per week How often do you get together with friends or relatives: 3 or more times per week Little interest or pleasure in doing things: not at all Feeling down, depressed, or hopeless: not at all Feel stressed/tense/nervous/anxious/difficulty sleeping: not at all Do you think of yourself as: straight/heterosexual Gender Identity: female Exam Narrative Exam Narrative: Awake alert appears to be uncomfortable. Examining the craniofacial structures shows no evidence of soft tissue swelling erythema or obvious adenitis. The oral cavity is in good repair with the exception of a small fracture on the posterior medial aspect of the tooth 19. There is no surrounding gingival infection. There is no swelling of the uvula or palate or the floor of the mouth. Constitutional Vital Signs, click to edit/add: Last Vital Signs Temp 98.2 F 02/11/24 13:12 Pulse 104 H 02/11/24 13:12 Resp 1 L 02/11/24 13:12 BP 117/90 02/11/24 13:12 Pulse Ox 99 02/11/24 13:12 O2 Del Method Room Air 02/11/24 13:12 Course Vital Signs Vital signs: Vital Signs Temperature 98.2 F 02/11/24 13:12 Pulse Rate 104 H 02/11/24 13:12 Respiratory Rate 1 L 02/11/24 13:12 Blood Pressure 117/90 02/11/24 13:12 Pulse Oximetry 99 02/11/24 13:12 Oxygen Delivery Method Room Air 02/11/24 13:12 Temperature 98.2 F 02/11/24 13:12 Pulse Rate 104 H 02/11/24 13:12 Respiratory Rate 1 L 02/11/24 13:12 Blood Pressure 117/90 02/11/24 13:12 Pulse Oximetry 99 02/11/24 13:12 Oxygen Delivery Method Room Air 02/11/24 13:12 MDM - Dental/Oral MDM Narrative Medical decision making narrative: This patient has a small 3 mm fracture of her tooth causing her pain not responding to typical measures. We will contact her pharmacy to see if they have any dental filling material. She will be given a limited prescription for [place]. She is scheduled to see her doctor on Tuesday. She says she has no history of drugs or substance or alcohol abuse ever in the past Discharge Plan Discharge Stand Alone Forms: Work/School Release, Portal Instructions Chief Complaint: Dental/Oral Clinical Impression: Fracture of tooth Patient Disposition: Home, Self-Care Time of Disposition Decision: 13:30 Prescriptions / Home Meds: No Action tramadol 50 mg tablet 50 mg PO Q4H PRN (Reason: pain) 3 Days Qty: 15 0RF ketorolac 10 mg tablet 10 mg PO TID PRN (Reason: pain) Qty: 10 0RF alprazolam 0.25 mg tablet 0.25 mg PO Q8H PRN (Reason: anxiety) citalopram [Celexa] 20 mg tablet 20 mg PO DAILY atenolol 25 mg tablet 25 mg PO Q24H Print Language: Afghan Additional Instructions: [place]/[id number]-[id number] [facility] for temporary filling Referrals: Physician,Non-Staff, MD [Primary Care Provider] - 1 week
== END 2024-02-11 13:54 | disposition home or self-care (01) ==
PROVIDERS: Emergency Provider Emergency Medicine Emergency Medical Services
DX: S02.5XXA Fracture of tooth (traumatic), initial encounter for closed fracture (principal); X58.XXXA Exposure to other specified factors, initial encounter
CPT/HCPCS: 99283

== ENCOUNTER 2024-02-13 16:00 | Emergency (ER) | payer BC, SELFPAY ==
--- OUTSIDE RECORDS SUMMARY | 2024-02-13 16:07 | XMS_ITS | CCD ---
Author Organization [facility] Care Team Providers Care Neurophysiology Tech Name Role Phone DO Jennifer Duran Primary Care Provider DO Augustus Santiago Attending Provider DO Amaury Barlow Emergency Provider Jennifer Duran Primary Care Physician [phone] Jennifer Duran Unavailable DO Jennifer Duran Primary Care Provider DO Jennifer Duran Attending Provider Jennifer Duran DO Primary Care Provider Jennifer Duran DO Unavailable Didier BARNETT, Penola P Unavailable [phone] Jennifer Duran DO Primary Care Provider Jennifer Duran DO Unavailable [phone] DO Jennifer Duran Primary Care Provider DO Jennifer Duran Attending Provider MD Yevgeniy Cabrera Jr Emergency Provider DO Kiko Saenz Admit Provider DO Kiko Saenz Attending Provider [phone] Jennifer Duran DO Primary Care Provider [phone] Jennifer Duran DO Unavailable [phone] Didier BARNETT, Penola P Unavailable JENNIFER DURAN [...] Provider DO Elier Jackson Emergency Provider DO Ming Childress Emergency Provider MD Megan Garcia Admit Provider MD Megan Muniz Attending Provider DO Kiko Saenz Other Provider MD Christi Aquino Attending Provider DO Jaime Aleman Attending Provider [phone] [facility], GENERIC Primary Care Physician Unavailab DO Jennifer Rm Primary Care Provider [phone] [facility] Provider DO Jaime Aleman Attending Provider [phone] DO Ming Childress Emergency Provider MD Megan Garcia Admit Provider MD Christi Aquino Attending Provider [phone] ViscDO Kiko landeros Other Provider NO FAMILY, PHYSICIAN Primary Care Provider Unava ilable MD MCKINLEY, EVGENY Attending Unavailable JENNIFER DURAN Primary Care Unavailable DO Elier Jackson Emergency Provider NONE, XXXX Primary Care Physician Unavailab DESTINI Sheehan Attending Unavailable TARUN BRADEN Attending Unavailable Jennifer Duran DO Primary Care Provider Unavail able DO Jennifer Duran Primary Care Provider CATY Corbett Emergency Provider [phone] SELWYN MARTINEZ Attending Unavailable NO PCP, NO PCP Primary Care Unavailable SELWYN MARTINEZ Attending Unavailable NO PCP, NO PCP Primary Care Unavailable DO Jennifer Duran Attending Provider Jennifer Duran Primary Care Unavailable Megan Muniz Admitting Unavailable Kiko Saenz Consulting Unavailable KyleomaChristi varghese M Attending Unavailable Imani Corbett Admitting Unavailable Girivelisse, Jennifer Primary Care Unavailable Imani Corbett Attending Unavailable Manuel, Elier M Attending Unavailable Manuel, Elier M Admitting Unavailable NO FAMILY, PHYSICIAN Primary Care Unavailable Roger, Jennifer Primary Care Unavailable Ming Childress Attending Unavailable Ming Childress Admitting Unavailable Girivelisse, Jennifer Primary Care Unavailable Roger, Jennifer Attending Unavailable Girivelisse, Jennifer Admitting Unavailable Girivelisse, Jennifer Primary Care Unavailable Kun - [facility], Jaime P Attending Unavailable Kuns - [facility], Jaime P Admitting Unavailable Manuel, Elier M Attending Unavailable Roger, Jennifer Primary Care Unavailable Manuel, Elier M Admitting Unavailable Unavailable Primary Care Provider Unavailmary e ROGER, JENNIFER C Primary Care Unavailable EREN CAMEJO Attending Unavailable ROGER, JENNIFER Dee Primary Care Unavailable EREN CAMEJO Attending Unavailable [...] NO PCP, NO PCP Primary Care Unavailable Jignesh Dumont Attending Unavailable Ritesh Heath Attending Unavailable Ritesh Heath Attending Unavailable Konstantin Penny Attending Unavailable Jignesh Dumont Attending Unavailable Ritesh Heath Attending Unavailable Allergies Allergy Classification Reported Allergen(s) Allergy Type Date of Onset Reaction(s) Facility (20 sources) Morphine; Translations: [MORPHINE] Drug Allergy 9 Other: See Comments, Itching (finding), Itching [facility] (19 sources) Atenolol Drug Allergy 3 Dr. Cantu/ [facility] (6 sources) seasoninig Propensity to adverse reactions Unknown Rayneer Other (1 source) Morphine Drug Allergy 3 [facility] Repository (17 sources) Seasonal allergy Propensity to adverse reactions 3 Unknown, Watery Eye [facility] (12 sources) Prochlorperazin e; Translations: [prochlorperazi ne] Drug Allergy 3 Feeling nervous (finding), Anxiety [facility] (1 source) Morphine Drug Allergy 3 [facility] Repository (1 source) No Known Medication Allergies; Translations: [No Known Medication Allergies] Propensity to adverse reactions (disorder) [facility] Repository Medications Current Medications Medication Drug [...] Alprazolam Active 0.25 MG PO .COMPLEX 24 8 January 02, 2024 2:24pm 0.25 mg orally [...] day(s), # 250 mL, Refills(s) 0, Pharmacy: [facility]/pharmacy #[id number], 166, cm, 12/04/21 12:54:00 EDT, Height/Length [...] q12hr, # 20 tab(s), Refills(s) 0, Pharmacy: [facility]/pharmacy #[id number], 165, cm, 09/26/23 14:18:00 EDT, Height/Length [...] day(s), # 20 tab(s), Refills(s) 0, Pharmacy: [facility]/pharmacy #[id number], 165, cm, 09/26/23 14:18:00 EDT, Height/Length [...] for 10 day(s), 22 gm, Refill(s) 0, [facility]/pharmacy #[id number], 166, cm, 12/04/21 12:54:00 EDT, Height/Length [...] Start: 09-06-2023 take 1 tablet by suman three times daily as needed for nausea [...] day(s), # 12 cap(s), Refills(s) 0, Pharmacy: [facility]/pharmacy #[id number], 165.1, cm, 04/24/23 13:32:00 EST, [...] 12 March 29, 2023 polyethylene glycol 3350 74728 mg powder for oral solution (2 sources) Osmotic Laxative Start: 09-26-2023 End: 10-03-2023 take 17 g by mouth once daily Miralax 3350 17 gram packet 17 gm, Oral, Daily, X 7 day(s), # 119 gm, Refills(s) 0, Pharmacy: [facility]/pharmacy #[id number], 165, cm, 09/26/23 14:18:00 EDT, Height/Length [...] Start: 03-25-2020 take 1 tablet by suman once daily Vitamin C 500 MG 1 [...] Discontinued 1 TAB PO EVERY 4-6 HOURS 12 November 08, 2023 January 19, 2024 11:18am Start: 09-14-2021 End: 04-28-2022 take 1 tablet by mouth three times daily Hydrocodone-Acetaminophen Discontinued 1 TAB PO Three times daily 9 September 14, 2021 April 28, 2022 1:50am [id number] 200 actuat albuterol 0.09 mg/actuat metered dose [...] 30 mg oral tablet (7 sources) Uncompetitive K-tatraf-F-asparta te Receptor Antagonist, Sigma-1 Agonist Start: 08-11-2021 take 1 tablet by mouth every six hours as needed [place] DMT 30-30 MG 1 tablet Orally q6 [...] Test Name Value Interpretation Reference Range Facility ED Clinical Summaryon 2023 ED Clinical Summary ED Clinical Summary [place] [id number] ED Clinical Summary Person Information [facility] Age[facility] 39 Years : 1985 Sex: Female Language: Belarusian PCP: NONE, XXXX Marital Status: Visit Id: Visit Reason: Mouth pain; Dental pain; RT SIDE TOOTHACHE - SEVERE Speciality: Acuity: 4 Enc Type: Emergency Med Service: Emergency Arrival: 02/13/2024 00:20:34 Discharge: 02/13/2024 01:00:13 LOS: 000 00:40 Checkin: 02/13/2024 00:20:34 Checkout: 02/13/2024 01:00:13 Dispo Type: Home (Routine DC) EVENTS: Event Name Event Status Request Date/Time Start Date/Time Complete Date/Time Arrive Complete 02/13/2024 00:20:34 02/13/2024 00:20:34 02/13/2024 00:20:34 Document Home Meds Request 02/13/2024 00:20:34 Triage Complete 02/13/2024 00:20:34 02/13/2024 00:28:44 02/13/2024 00:28:44 Bed Assign Complete 02/13/2024 00:29:20 02/13/2024 00:29:20 02/13/2024 00:29:20 Dr Exam Complete 02/13/2024 00:29:20 02/13/2024 00:30:18 02/13/2024 00:30:18 RN Exam Complete 02/13/2024 00:29:20 02/13/2024 00:56:11 02/13/2024 00:56:11 Registration Complete 02/13/2024 00:30:18 02/13/2024 00:52:09 02/13/2024 00:52:09 Meds Admin Request 02/13/2024 00:43:47 Discharge Complete 02/13/2024 00:47:27 02/13/2024 01:00:19 02/13/2024 01:00:19 Reg Complete Request 02/13/2024 00:52:09 Reg Bed Request Complete 02/13/2024 00:52:09 02/13/2024 00:52:09 02/13/2024 00:52:09 Transfer Complete 02/13/2024 01:00:19 02/13/2024 01:00:19 02/13/2024 01:00:19 ADDRESS: [address] [place] [id number] PHYS DOC NOTES: MEDICAL INFORMATION: Prescriptions Given: New Medications [id number], [address], [place] [id number], [phone] amoxicillin-clavulan ate (Augmentin 875 mg-125 mg Tab) 1 Tablets By Mouth every 12 hours for 7 Days. Refills: 0. Medications to Continue with No Changes Other Medications alprazolam (alprazolam 0.25 mg Tab) budesonide-formotero l (Symbicort 80/4.5 inhalation aerosol with adapter) citalopram (citalopram 20 mg Tab) By Mouth every day. diflunisal (diflunisal 500 mg Tab) 1 Tablets By Mouth every 12 hours. Refills: 0. PATIENT EDUCATION INFORMATION: Instructions: Dental Pain Follow up: With: Address: When: Dental: [facility] [phone] In 3 days 02/16/2024 With: Address: When: Dental: [employer] [phone] In 3 days 02/16/2024 With: Address: When: Dental: [facility] [phone] In 3 days 02/16/2024 DIAGNOSIS: Pain, dental Normal [facility] ED Note-Physicianon 02-13-20 ED Note-Physician ED Note-Physician Basic Information Time Seen: Ritesh Heath DO 02/13/2024 00:30 Chief Complaint right lower jaw pain for several days. states has a bad tooth. needs root canal. taking amoxil and norco without relief History of Present Illness HPI: Patient is a 39-year-old female with past medical history of endometriosis who presents the ED for right lower dental pain. Patient states this for started on Tuesday and progressively worsened until last night. She states that she has a lot of tooth decay in this area and has had problems with it before. She started taking an old prescription for Augmentin as well as oral Toradol. She was seen by another physician and was given a short prescription for Lafayette which she is also taking but states that the pain is too severe for her to sleep. She denies any fever or chills. ROS: Pertinent review of systems conducted and is negative except as noted above. Physical exam: General: nontoxic appearing and in no distress HEENT: Mucous membranes moist. Missing posterior most right lower molar and the second posterior most severely cracked. No submandibular fluctuance or tenderness. Posterior pharynx is patent. Handling secretions without difficulty. Neuro: awake and alert Neck: supple, trachea midline. Right anterior cervical adenopathy. Card: Heart regular rate and rhythm no murmur Resp: Lungs clear to auscultation no wheeze or rhonchi Physical Exam Vitals & Measurements T: 36.8 ?C(Oral) HR: 86(Peripheral) RR: 16 BP: 109/72 SpO2: 100% HT: 165.1 cm WT: 87.3 kg BMI: 32.03 Medical Decision Making MEDICAL DECISION MAKING Number and Complexity of Problems Differential Diagnosis: [] [facility] Data External documents reviewed: N/A My EKG interpretation: Noted in chart if applicable My CT interpretation: N/A My X-ray interpretation: Noted in chart if applicable My Ultrasound interpretation: N/A Decision rules/scores evaluated: N/A Discussed with: N/A Treatment and Disposition ED Course: Patient is nontoxic-appearing and in no distress. He is afebrile in the ED. Airway is intact. She has poor dentition and pain in that area. No evidence of Richard angina or tracking infection at this time. She is already taking oral Toradol as well as [place]. We discussed using lidocaine and bupivacaine soaked cotton balls for topical numbing in addition to these medications. Will give her a new prescription for the Augmentin that she is almost out of the old bottle. We discussed need for close follow-up with dentistry. Patient states understanding agreement this plan was discharged stable condition. Shared decision making: As above Code status: N/A Assessment/Plan Pain, dental (K08.89: Other specified disorders of teeth and supporting structures) Orders: amoxicillin-clavulan ate, 1 tab(s), Oral, q12hr for 7 day(s), 14 tab(s), Refill(s) 0, [facility] #[id number], 165.1, cm, 02/13/24 0:28:00 EDT, Height/Length Dosing, 87.3, kg, 02/13/24 0:28:00 EDT, Weight Dosing benzocaine topical, 1 luis, Gel, Topical, QID for 30 day(s), Stop date 03/14/24 0:42:00 EDT, STAT, Start date 02/13/24 0:43:00 EDT lidocaine topical, 200 mg, 10 mL, Soln-Oral, Oral, Once, Stop date 02/13/24 0:43:00 EDT, STAT, Start date 02/13/24 0:43:00 EDT Disposition Plan Discharge Prescription List Prescriptions Augmentin 875 mg-125 mg Tab, 1 tab(s), Oral, q12hr Follow-up With When Contact Information Dental: [facility] [phone] In 3 days 02/16/2024 EDT Additional Instructions: [facility] [phone] In 3 days 02/16/2024 EDT Additional Instructions: Dental: [facility] [phone] In 3 days 02/16/2024 EDT Additional Instructions: Patient Education Dental Pain Problem List/Past Medical History Ongoing No chronic problems Historical Endometriosis Ovarian cyst Medications Inpatient benzocaine topical 20% gel, 1 luis, Topical, QID lidocaine Viscous Top 2% Lucinda, 200 mg= 10 mL, Oral, Once Home alprazolam 0.25 mg Tab Augmentin 875 mg-125 mg Tab, 1 tab(s), Oral, q12hr citalopram 20 mg Tab, Oral, Daily diflunisal 500 mg Tab, 500 mg= 1 tab(s), Oral, q12hr Symbicort 80/4.5 inhalation aerosol with adapter Allergies Compazine (Jittery) morphine (Itch) Social History Alcohol - Low Risk, 04/24/2023 Current, Beer, Wine, 1-2 times per month, 04/24/2023 Substance Abuse - Denies Substance Abuse, 04/24/2023 Tobacco Never (less than 100 in lifetime) Tobacco Use:. Never Smokeless Tobacco Use:., 12/04/2021 Lab Results No qualifying data available. Diagnostic Results No qualifying data available. Normal [facility] Comment on above: Result Comment: Elec tronically Signed By: Ritesh Heath DO\.br\Date and Time Signed: 02/13/24 00:51 EDT ED Patient Summaryon 024 ED Patient Summary ED Patient Summary [place] [id number] Patient Discharge Instructions Person Information Name: LIVIA NOYOLA Age: 39 Years Arrival Date: 02/13/2024 00:20:34 Discharge Diagnosis: Pain, dental Primary Care Physician: NONE, XXXX Provider Information Primary Provider: Ritesh Heath DO Advanced Mailing Clerk:None The exam and treatment you received in the Emergency Department were for an urgent problem and are not intended as complete care. It is important that you follow up with a doctor, nurse practitioner, or physician?s store administrative assistant for ongoing care. If your symptoms become worse or you do not improve as expected and you are unable to reach your usual health care provider, you should return to the Emergency Department. We are available 24 hours a day. LIVIA NOYOLA has been given the following list of patient education materials, prescriptions and follow-up instructions: Follow-up Instructions: With: Address: When: Dental: [facility] [phone] In 3 days 02/16/2024 With: Address: When: Dental: [facility] [phone] In 3 days 02/16/2024 With: Address: When: Dental: [facility] [phone] In 3 days 02/16/2024 In the event that this physician does not participate in your insurance network, please consult with your insurance company to find a nearby participating provider. Patient Education Materials: Dental Pain A MESSAGE TO ALL PATIENTS REGARDING OPIOIDS PRESCRIPTION OPIOIDS: WHAT YOU NEED TO KNOW Prescription opioids can be used to help relieve zdhtapea-pa-nfmmrh pain and are often prescribed following a [...] be struggling with addiction, tell your health care professi (more content not included)... Normal [facility] C REACTIVE PROTEINon 024 CRP [Mass/Vol] mg/L Normal 0.000-0.744 [facility] Comment on above: Performed By: #### C HEATH CMP #### [facility] ([id number]) [address] [place] [address] 06965 CBC AND AUTO DIFFon 01-27-20 24 ABSOLUTE BASOPHIL 0.1 X10E9/L Normal 0.0-0.2 [facility] Comment on above: Performed By: #### C STEVE JOE, 3040-3, , #### [facility] ([id number]) [address] [place] [address] 20946 ABSOLUTE NEUTROPHIL 4.6 X10E9/L Normal 1.5-6.6 [facility] Comment on above: Performed By: #### C HEATH CMP, 3040-3, 76351-3, #### [facility] ([id number]) [address] [place] [address] 02555 Basophils/100 WBC (Bld) 1.0 % Normal P [facility] Comment on above: Performed By: #### C HEATH CMP, 3040-3, , 1987-10, #### [facility] ([id number]) [address] [place] [address] 98766 Eosinophils (Bld) [#/Vol] 0.1 10*3/uL Normal 0.0-0.4 [facility] Comment on above: Performed By: #### C HEATH, [facility], 3039-08, , 1987-10, #### [facility] ([id number]) [address] [place] [address] 33077 Eosinophils/100 WBC (Bld) 1.8 % Normal [facility] Comment on above: Performed By: #### C HEATH, [facility], 3039-08, , 1987-10, #### [facility] ([id number]) [address] [place] [address] 18291 Erythrocyte distribution width (RBC) [Ratio] 17.1 % High 11.5-15.0 [facility] Comment on above: Performed By: #### C HEATH, [facility], 3039-08, , 1987-10, #### [facility] ([id number]) [address] [place] [address] 70278 Hematocrit (Bld) [Volume fraction] 34.8 % Low 35-47 [facility] Comment on above: Performed By: #### C BCA, CMP, 3039-08, , 1987-10, #### [facility] ([id number]) [address] [place] [address] 80699 Hemoglobin (Bld) [Mass/Vol] 10.9 g/dL Low 11.7-15.5 [facility] Comment on above: Performed By: #### C HEATH, CMP, 3039-08, , 1987-10, #### [facility] ([id number]) [address] [place] [address] 10684 Lymphocytes (Bld) [#/Vol] 1.9 10*3/uL Normal 1.0-3.5 [facility] Comment on above: Performed By: #### C HEATH, [facility], 0-3, 34784-0, 1987-10, #### [facility] ([id number]) [address] [place] [address] 91661 Lymphocytes/100 WBC (Bld) 26.4 % Normal [facility] Comment on above: Performed By: #### C HEATH, [facility], 3039-, , 1987-10, #### [facility] ([id number]) [address] [place] [address] 43558 MCH (RBC) [Entitic mass] 22.7 pg Low 27-34 [facility] Comment on above: Performed By: #### C HEATH, [facility], 3039-3, , 1987-10, #### [facility] ([id number]) [address] [place] [address] 50912 MCHC (RBC) [Mass/Vol] 31.3 g/dL Low 32-36 Pro [facility] Comment on above: Performed By: #### Leila JOE, [facility], 3039-3, , 1987-10, #### [facility] ([id number]) [address] [place] [address] 96275 MCV (RBC) [Entitic vol] 72 fL Low 80-100 P [facility] Comment on above: Performed By: #### Leila JOE, [facility], 3039-, , 1987-10, #### [facility] ([id number]) [address] [place] [address] 08990 Monocytes (Bld) [#/Vol] 0.4 10*3/uL Normal 0-0.9 [facility] Comment on above: Performed By: #### C BCA, CMP, 3040-3, 49876-2, 1987-10, #### [facility] ([id number]) [address] [place] [address] 91935 Monocytes/100 WBC (Bld) 5.8 % Normal [facility] Comment on above: Performed By: #### C BCA, CMP, 3040-3, 03161-4, 1987-10, #### [facility] ([id number]) [address] [place] [address] 16151 Neutrophils/100 WBC (Bld) 65.0 % Normal [facility] Comment on above: Performed By: #### C BCA, CMP, 3040-3, , 1987-10, #### [facility] ([id number]) [address] [place] [address] 59640 Platelet mean volume (Bld) [Entitic vol] 7.6 fL Normal 7-12 [facility] Comment on above: Performed By: #### C BCA, CMP, 3040-3, 85816-3, 1987-10, #### [facility] ([id number]) [address] [place] [address] 77659 Platelets (Bld) [#/Vol] 532 10*3/uL High 150-450 [facility] Comment on above: Performed By: #### C BCA, CMP, 3040-3, 93806-9, 1987-10, #### [facility] ([id number]) [address] [place] [address] 45489 RBC COUNT 4.80 X10E12/L Normal 3.80-5.20 [facility] Comment on above: Performed By: #### C BCA, CMP, 3040-3, 57373-6, 1987-10, #### [facility] ([id number]) [address] [place] [address] 80631 WBC (Bld) [#/Vol] 7.0 10*3/uL Normal 4.0-11.0 [facility] Comment on above: Performed By: #### C HEATH, CMP, 0-3, 96940-9, 1987-10, #### [facility] ([id number]) [address] [place] [address] 15182 CHLAMYDIA/GC BY PCRon 2023 CHLAMYDIA/GC BY PCR [...] are dependent on adequate specimen collection. Normal [facility] Comment on above: Performed By: #### C HEATH, CMP #### [facility] ([id number]) [address] [place] [address] 76272 COMPREHENSIVE METABOLIC PANE Van 01-27-2024 Albumin [Mass/Vol] 4.3 g/dL Normal 3.2-5.3 [facility] Comment on above: Performed By: #### C HEATH CMP, 0-3, 64279-7, 1987-10, #### [facility] ([id number]) [address] [place] [address] 96223 ALP [Catalytic activity/Vol] 76 U/L Normal 39-130 [facility] Comment on above: Performed By: #### C HEATH, CMP, 3040-3, 24676-7, 1987-10, #### [facility] ([id number]) [address] [place] [address] 36097 ALT [Catalytic activity/Vol] 28 U/L Normal 0-31 [facility] Comment on above: Performed By: #### C BCA, CMP, 3040-3, 91233-1, 1987-10, #### [facility] ([id number]) [address] [place] [address] 10895 Anion gap [Moles/Vol] 7 mmol/L Normal 5-15 [facility] Comment on above: Performed By: #### C BCA, CMP, 3040-3, 07444-3, 1987-10, #### [facility] ([id number]) [address] [place] [address] 02847 AST [Catalytic activity/Vol] 20 U/L Normal 0-41 [facility] Comment on above: Performed By: #### C BCA, CMP, 3040-3, 34660-2, 1987-10, #### [facility] ([id number]) [address] [place] [address] 70648 Bilirubin [Mass/Vol] 1.0 mg/dL Normal 0.3-1.2 [facility] Comment on above: Performed By: #### C BCA, CMP, 3040-3, 84466-1, 1987-10, #### [facility] ([id number]) [address] [place] [address] 72918 Calcium [Mass/Vol] 9.0 mg/dL Normal 8.5-10.5 [facility] Comment on above: Performed By: #### C BCA, CMP, 3040-3, 52293-6, 1987-10, #### [facility] ([id number]) [address] [place] [address] 74908 Chloride [Moles/Vol] 102 mmol/L Normal 98-109 [facility] Comment on above: Performed By: #### C BCA, CMP, 3040-3, 53028-0, 1987-10, #### [facility] ([id number]) [address] [place] [address] CO2 [Moles/Vol] 22 mmol/L Normal 22-32 [facility] Comment on above: Performed By: #### C STEVE JOE, 3040-3, 14782-7, 1987-10, #### [facility] ([id number]) [address] [place] [address] 26391 Creatinine [Mass/Vol] 0.76 mg/dL Normal 0.40-1.00 [facility] Comment on above: Result Comment: METH OD TRACEABLE TO IDMS STANDARD Performed By: #### C STEVE JOE, 3039-3, , 1987-10, #### [facility] ([id number]) [address] [place] [address] 75966 eGFR (CKD-EPI) NON-RACE DEPENDENT >90 Normal >59 [facility] Comment on above: Result Comment: Reported eGFR is based on the CKD-EPI 2020 equation that does not use a race coefficient. Performed By: #### C STEVE JOE, 0-3, , 1987-10, #### [facility] ([id number]) [address] [place] [address] 93751 Glucose [Mass/Vol] 109 mg/dL High 65-99 [facility] Comment on above: Performed By: #### C STEVE JOE, 0-3, , 1985-10, #### [facility] ([id number]) [address] [place] [address] 75138 Potassium [Moles/Vol] 4.1 mmol/L Normal 3.5-5.0 [facility] Comment on above: Performed By: #### C STEVE JOE, 3040-3, 91774-0, 1987-10, #### [facility] ([id number]) [address] [place] [address] 28777 Protein [Mass/Vol] 8.2 g/dL High 6.0-8.0 [facility] Comment on above: Performed By: #### C HEATH, [facility], 3040-3, 66786-1, 1987-10, #### [facility] ([id number]) [address] [place] [address] 09673 Sodium [Moles/Vol] 131 mmol/L Low 134-146 [facility] Comment on above: Performed By: #### C HEATH, [facility], 3040-3, 82086-8, 1987-10, #### [facility] ([id number]) [address] [place] [address] 37098 Urea nitrogen [Mass/Vol] 6 mg/dL Normal 5-23 [facility] Comment on above: Performed By: #### C HEATH, [facility], 3040-3, 44566-3, 1987-10, #### [facility] ([id number]) [address] [place] [address] 30238 HCG ( test) Ql (U)o n 01-27-2024 Beta HCG ( test) Ql (U) Negative Normal NEG [facility] Comment on above: Performed By: #### 2 106-3 #### [facility] ([id number]) [address] [place] [address] 26774 LIPASEon 01-27-2024 Lipase [Catalytic activity/Vol] 33 U/L Normal 17-40 [facility] Comment on above: Performed By: #### C HEATH, CMP #### [facility] ([id number]) [address] [place] [address] 40263 Lactate (P arely) [Moles/Vol]o n 01-27-2024 LACTATE W/REFLEX 1.5 mmol/L Normal 0.4-2.0 [facility] Comment on above: Result Comment: Result did not trigger repeat Lactate, re-order if needed. Performed By: #### C BCA, CMP #### [facility] ([id number]) [address] [place] [address] 90284 MAGNESIUMon 01-27-2024 Magnesium [Mass/Vol] 2.0 mg/dL Normal 1.8-2.6 [facility] Comment on above: Performed By: #### C BCA, CMP #### [facility] ([id number]) [address] [place] [address] 27510 URINE CULTUREon 01-27-2024 Bacteria identified Cx Nom (U) CULTURE RESULTS <10,000 ORGANISMS/ML NORMAL URO GENITAL RASHID Normal [facility] Comment on above: Performed By: #### C HEATH, CMP #### [facility] ([id number]) [address] [place] [address] 39484 URN MACROSCOPIC NURon 2023 BILIRUBIN AUDREY Negative Normal NEG [facility] Comment on above: Performed By: #### N UM #### [facility] ([id number]) [address] [place] [address] 79739 BLOOD/HGB AUDREY Negative Normal NEG [facility] Comment on above: Performed By: #### N UM #### [facility] ([id number]) [address] [place] [address] 98792 GLUCOSE AUDREY Negative Normal NEG [facility] Comment on above: Performed By: #### N UM #### [facility] ([id number]) [address] [place] [address] 00845 KETONES AUDREY Negative Normal NEG [facility] Comment on above: Performed By: #### N UM #### [facility] ([id number]) [address] [place] [address] [place] [address] LEUKOCYTE ESTERASE AUDREY Negative Normal NEG [facility] Comment on above: Performed By: #### N UM #### [facility] ([id number]) [address] [place] [address] 05021 NITRITE AUDREY Negative Normal NEG [facility] Comment on above: Performed By: #### N UM #### [facility] ([id number]) [address] [place] [address] 41504 PH AUDREY 8.5 Normal 5.0-8.5 [facility] Comment on above: Performed By: #### N UM #### [facility] ([id number]) [address] [place] [address] 81500 PROTEIN AUDREY Negative Normal NEG [facility] Comment on above: Performed By: #### N UM #### [facility] ([id number]) [address] [place] [address] 14513 SPECIFIC GRAVITY AUDREY 1.015 Normal 1.003-1.035 [facility] Comment on above: Performed By: #### N UM #### [facility] ([id number]) [address] [place] [address] 20378 UROBILINOGEN AUDREY 0.2 eu/dL Normal <1.1 [facility] Comment on above: Performed By: #### N UM #### [facility] ([id number]) [address] [place] [address] 40949 US PELVIC WITH TRANSVAGINAL AND DUPLEXon 01-27-2024 [...] Nixon MD on 01/27/2024 2:39 PM Normal [facility] VAGINITIS PANEL PCRon 2023 VAGINITIS PANEL [...] clinical presentation to determine patient diagnosis. Normal [facility] Comment on above: Performed By: #### C HEATH, [facility] #### [facility] ([id number]) [address] [place] [address] [place] [address] [address] sinus wo conon 11-25-2023 CT sinus wo con [facility] [address] [place] [address] CT Scan Report Signed Patient: Livia Noyola MR#: [id number] : 1985 Acct:[id number] Age/Sex: 38 / F ADM Date: 11/25/23 Loc: CT Room: Type: [facility] Attending Dr: Jennifer Duran DO Copies to: [...] Davi Figueroa M.D.11/25/2023 4:01 PM Dictation Location: [place] [address] Transcribed By: [facility] 11/25/23 1601 Dictated By: Davi Figueroa DO 11/25/23 1559 Signed By: 11/25/23 1601 Normal [facility] CBC AND AUTO DIFFon 10-25-19 ABSOLUTE BASOPHIL 0.1 X10E9/L Normal 0.0-0.2 [facility] Comment on above: Performed By: #### C BCA, CMP #### [facility] ([id number]) [address] [place] [address] ABSOLUTE NEUTROPHIL 4.1 X10E9/L Normal 1.5-6.6 [facility] Comment on above: Performed By: #### C HEATH, CMP #### [facility] ([id number]) [address] [place] [address] 52732 Basophils/100 WBC (Bld) 0.9 % Normal [facility] Comment on above: Performed By: #### C BCA, CMP #### [facility] ([id number]) [address] [place] [address] 19982 Eosinophils (Bld) [#/Vol] 0.0 10*3/uL Normal 0.0-0.4 [facility] Comment on above: Performed By: #### C HEATH, CMP #### [facility] ([id number]) [address] [place] [address] 29891 Eosinophils/100 WBC (Bld) 0.1 % Normal [facility] Comment on above: Performed By: #### C HEATH, CMP #### [facility] ([id number]) [address] [place] [address] 87093 Erythrocyte distribution width (RBC) [Ratio] 17.9 % High 11.5-15.0 [facility] Comment on above: Performed By: #### C HEATH, CMP #### [facility] ([id number]) [address] [place] [address] 86792 Hematocrit (Bld) [Volume fraction] 34.6 % Low 35-47 [facility] Comment on above: Performed By: #### C BCA, CMP #### [facility] ([id number]) [address] [place] [address] 82507 Hemoglobin (Bld) [Mass/Vol] 11.1 g/dL Low 11.7-15.5 [facility] Comment on above: Performed By: #### C BCA, CMP #### [facility] ([id number]) [address] [place] [address] 49703 Lymphocytes (Bld) [#/Vol] 1.5 10*3/uL Normal 1.0-3.5 [facility] Comment on above: Performed By: #### C BCA, CMP #### [facility] ([id number]) [address] [place] [address] 82213 Lymphocytes/100 WBC (Bld) 25.6 % Normal [facility] Comment on above: Performed By: #### C BCA, CMP #### [facility] ([id number]) [address] [place] [address] 28071 MCH (RBC) [Entitic mass] 23.1 pg Low 27-34 [facility] Comment on above: Performed By: #### C HEATH, CMP #### [facility] ([id number]) [address] [place] [address] 59425 MCHC (RBC) [Mass/Vol] 32.1 g/dL Normal 32-36 [facility] Comment on above: Performed By: #### C HEATH, CMP #### [facility] ([id number]) [address] [place] [address] 47810 MCV (RBC) [Entitic vol] 72 fL Low 80-100 P [facility] Comment on above: Performed By: #### C BCA, CMP #### [facility] ([id number]) [address] [place] [address] 81603 Monocytes (Bld) [#/Vol] 0.3 10*3/uL Normal 0-0.9 [facility] Comment on above: Performed By: #### C BCA, CMP #### [facility] ([id number]) [address] [place] [address] 42400 Monocytes/100 WBC (Bld) 5.3 % Normal [facility] Comment on above: Performed By: #### C BCA, CMP #### [facility] ([id number]) [address] [place] [address] 20362 Neutrophils/100 WBC (Bld) 68.1 % Normal [facility] Comment on above: Performed By: #### C BCA, CMP #### [facility] ([id number]) [address] [place] [address] 62045 Platelet mean volume (Bld) [Entitic vol] 7.7 fL Normal 7-12 [facility] Comment on above: Performed By: #### C BCA, CMP #### [facility] ([id number]) [address] [place] [address] 81478 Platelets (Bld) [#/Vol] 532 10*3/uL High 150-450 [facility] Comment on above: Performed By: #### C HEATH, CMP #### [facility] ([id number]) [address] [place] [address] 54355 RBC COUNT 4.82 X10E12/L Normal 3.80-5.20 [facility] Comment on above: Performed By: #### C BCA, CMP #### [facility] ([id number]) [address] [place] [address] 70442 WBC (Bld) [#/Vol] 6.0 10*3/uL Normal 4.0-11.0 [facility] Comment on above: Performed By: #### C BCA, CMP #### [facility] ([id number]) [address] [place] [address] 79900 COMPREHENSIVE METABOLIC PANE [facility] 10-25-2023 Albumin [Mass/Vol] 4.7 g/dL Normal 3.2-5.3 [facility] Comment on above: Performed By: #### C BCA, CMP #### [facility] ([id number]) [address] [place] [address] 86882 ALP [Catalytic activity/Vol] 67 U/L Normal 39-130 [facility] Comment on above: Performed By: #### C BCA, CMP #### [facility] ([id number]) [address] [place] [address] [place] [address] ALT [Catalytic activity/Vol] 23 U/L Normal 0-31 [facility] Comment on above: Performed By: #### C BCA, CMP #### [facility] ([id number]) [address] [place] [address] 42729 Anion gap [Moles/Vol] 11 mmol/L Normal 5-15 [facility] Comment on above: Performed By: #### C BCA, CMP #### [facility] ([id number]) [address] [place] [address] 19025 AST [Catalytic activity/Vol] 20 U/L Normal 0-41 [facility] Comment on above: Performed By: #### C BCA, CMP #### [facility] ([id number]) [address] [place] [address] 93273 Bilirubin [Mass/Vol] 1.0 mg/dL Normal 0.3-1.2 [facility] Comment on above: Performed By: #### C BCA, CMP #### [facility] ([id number]) [address] [place] [address] 35844 Calcium [Mass/Vol] 9.6 mg/dL Normal 8.5-10.5 [facility] Comment on above: Performed By: #### C BCA, CMP #### [facility] ([id number]) [address] [place] [address] 63100 Chloride [Moles/Vol] 106 mmol/L Normal 98-109 [facility] Comment on above: Performed By: #### C BCA, CMP #### [facility] ([id number]) [address] [place] [address] 24560 CO2 [Moles/Vol] 20 mmol/L Low 22-32 [facility] Comment on above: Performed By: #### C BCA, CMP #### [facility] ([id number]) [address] [place] [address] 03894 Creatinine [Mass/Vol] 0.59 mg/dL Normal 0.40-1.00 [facility] Comment on above: Result Comment: METH OD TRACEABLE TO IDMS STANDARD Performed By: #### C BCA, CMP #### [facility] ([id number]) [address] [place] [address] 46781 eGFR (CKD-EPI) NON-RACE DEPENDENT >90 Normal >59 [facility] Comment on above: Result Comment: Reported eGFR is based on the CKD-EPI 2020 equation that does not use a race coefficient. Performed By: #### C BCA, CMP #### [facility] ([id number]) [address] [place] [address] 46561 Glucose [Mass/Vol] 124 mg/dL High 65-99 [facility] Comment on above: Performed By: #### C BCA, CMP #### [facility] ([id number]) [address] [place] [address] 99861 Potassium [Moles/Vol] 3.5 mmol/L Normal 3.5-5.0 [facility] Comment on above: Performed By: #### C BCA, CMP #### [facility] ([id number]) [address] [place] [address] 66749 Protein [Mass/Vol] 8.7 g/dL High 6.0-8.0 [facility] Comment on above: Performed By: #### C BCA, CMP #### [facility] ([id number]) [address] [place] [address] 35598 Sodium [Moles/Vol] 137 mmol/L Normal 134-146 [facility] Comment on above: Performed By: #### C BCA, CMP #### [facility] ([id number]) [address] [place] [address] 45134 Urea nitrogen [Mass/Vol] 6 mg/dL Normal 5-23 [facility] Comment on above: Performed By: #### C BCA, CMP #### [facility] ([id number]) [address] [place] [address] ABDOMEN AND PELVIS W CONT on [...] Fisher MD on 10/25/2023 7:39 PM Normal [facility] HCG ( test) Ql (U)o n 10-25-2023 Beta HCG ( test) Ql (U) Negative Normal NEG [facility] Comment on above: Performed By: #### 2 106-3 #### [facility] ([id number]) [address] [place] [address] 56560 URN MACROSCOPIC NURon 2023 BILIRUBIN AUDREY Negative Normal NEG [facility] Comment on above: Performed By: #### N UM #### [facility] ([id number]) [address] [place] [address] 45854 BLOOD/HGB AUDREY Negative Normal NEG [facility] Comment on above: Performed By: #### N UM #### [facility] ([id number]) [address] [place] [address] 98280 GLUCOSE AUDREY Negative Normal NEG [facility] Comment on above: Performed By: #### N UM #### [facility] ([id number]) [address] [place] [address] 53759 KETONES AUDREY 15 mg/dL Abnormal NEG [facility] Comment on above: Performed By: #### N UM #### [facility] ([id number]) [address] [place] [address] 67588 LEUKOCYTE ESTERASE AUDREY Trace Abnormal NEG [facility] Comment on above: Performed By: #### N UM #### [facility] ([id number]) [address] [place] [address] 22473 NITRITE AUDREY Negative Normal NEG [facility] Comment on above: Performed By: #### N UM #### [facility] ([id number]) [address] [place] [address] 25143 PH AUDREY 7.0 Normal 5.0-8.5 [facility] Comment on above: Performed By: #### N UM #### [facility] ([id number]) [address] [place] [address] 41806 PROTEIN AUDREY Negative Normal NEG [facility] Comment on above: Performed By: #### N UM #### [facility] ([id number]) [address] [place] [address] 93399 SPECIFIC GRAVITY AUDREY 1.020 Normal 1.003-1.035 [facility] Comment on above: Performed By: #### N UM #### [facility] ([id number]) [address] [facility], [place] [address] UROBILINOGEN AUDREY 1.0 eu/dL Normal <1.1 [facility] Comment on above: Performed By: #### N UM #### [facility] ([id number]) [address] [facility], [place] [address] US PELVIC WITH TRANSVAGINAL AND DUPLEXon 10-25-2023 [...] Singh MD on 10/25/2023 6:17 PM Normal [facility] C Urineon 10-02-2023 Bacteria identified Cx [...] Locations R1: This test was performed at: [facility], [address] [place] [address], [address]- , , Normal [facility] Comment on above: Performed By: #### 2 307572, 3590989, 2137002, 04648759, [id number] #### [facility] [address] [place] [address] 05972 BMPon 09-30-2023 Anion gap [Moles/Vol] 13 mmol/L Normal 6-16 [facility] Comment on above: Performed By: #### 2 397785, 3076157, 7195348, 06454757, 0419283 ####[place] [address] [place] [address] Calcium [Mass/Vol] 9.1 mg/dL Normal 8.9-11.1 [facility] Comment on above: Performed By: #### 2 499579, 6150542, 8111961, 61379219, 6639763 ####[place] [address] [place] [address] Chloride [Moles/Vol] 105 mmol/L Normal 101-111 [facility] Comment on above: Performed By: #### 2 023067, 2850816, 3978759, 86802101, 3928404 ####[place] [address] [place] [address] CO2 [Moles/Vol] 23 mmol/L Normal 21-31 [facility] Comment on above: Performed By: #### 2 071805, 8214200, 2084735, 36618052, 4466861 ####[facility] [address] [place] [address] Creatinine [Mass/Vol] 0.8 mg/dL Normal 0.5-1.3 [facility] Comment on above: Performed By: #### 2 208080, 6074744, 9570071, 72717172, 4112736 ####[facility] [address] [place] [address] Glucose [Mass/Vol] 95 mg/dL Normal 55-199 [facility] Comment on above: Performed By: #### 2 836203, 0996986, 9223116, 56097816, 0113543 ####[facility] [address] [place] [address] Potassium [Moles/Vol] 3.1 mmol/L Low 3.5-5.3 [facility] Comment on above: Performed By: #### 2 413000, 5532012, 7488700, 69608570, 5958779 ####[facility] [address] [place] [address] Sodium [Moles/Vol] 138 mmol/L Normal 135-145 [facility] Comment on above: Performed By: #### 2 353508, 6158882, 1459793, 29793374, 3614667 ####[facility] [address] [place] [address] Urea nitrogen [Mass/Vol] 7 mg/dL Normal 5-21 [facility] Comment on above: Performed By: #### 2 908387, 4149508, 0046791, 27603583, 9157791 ####[facility] [address] [place] [address] Urea nitrogen/Creatinine [Mass ratio] 9 No Units Low 10-20 [facility] Comment on above: Performed By: #### 2 175372, 8558480, 1287814, 29989024, 3468378 ####[facility] [address] [place] [address] CBC w/ Auto Diffon 4 Basophils/100 WBC (Bld) 0.3 % Normal 0.0-2.0 [facility] Comment on above: Performed By: #### 2 176430, 2301376, 7402289, 48630407, 3835111 ####[address] [address] Basophils/Leukocytes Auto (Bld) [Pure # fraction] 0.0 E9/L Normal 0.0-0.2 [facility] Comment on above: Performed By: #### 2 049732, 9877680, 1121923, 25418132, 4828270 ####[address] [address] Eosinophils (Bld) [#/Vol] 0.0 E9/L Normal 0.0-0.5 [facility] Comment on above: Performed By: #### 2 087129, 9907363, 5056718, 17252114, 1798614 ####[address] [address] Eosinophils/100 WBC (Bld) 0.4 % Normal 0.0-8.0 [facility] Comment on above: Performed By: #### 2 294336, 5918656, 2542396, 05728708, 5767682 ####[address] [address] Erythrocyte distribution width (RBC) [Ratio] 18.3 % High 10.9-14.2 [facility] Comment on above: Performed By: #### 2 372351, 9468020, 9735833, 34057874, 9069664 ####[address] [address] Hematocrit (Bld) [Volume fraction] 32.6 % Low 34.0-46.0 [facility] Comment on above: Performed By: #### 2 010700, 6438359, 6845637, 89993625, 9874663 ####[address] [address] Hemoglobin (Bld) [Mass/Vol] 10.3 g/dL Low 12.0-16.0 [facility] Comment on above: Performed By: #### 2 974475, 5392652, 9429773, 08066363, 1418346 ####[facility] [address] [place] [address] Lymphocytes (Bld) [#/Vol] 4.1 E9/L High 1.0-4.0 [facility] Comment on above: Performed By: #### 2 598953, 0808691, 2508898, 48394774, 9933711 ####[facility] [address] [place] [address] 5[address] Lymphocytes/100 WBC (Bld) 39.5 % Normal 14.0-50.0 [facility] Comment on above: Performed By: #### 2 906058, 2494067, 8635322, 30255856, 0659384 ####[facility] [address] [place] [address] 23135 MCH (RBC) [Entitic mass] 23.7 pg Low 27.0-34.0 [facility] Comment on above: Performed By: #### 2 376576, 9933651, 2176378, 28322698, 3902505 ####[facility] [address] [place] [address] 38720 MCHC (RBC) [Mass/Vol] 31.7 g/dL Normal 31.4-36.0 [facility] Comment on above: Performed By: #### 2 708563, 1675698, 3636398, 44292316, 9046828 ####[facility] [address] [place] [address] MCV (RBC) [Entitic vol] 74.9 fL Low 80.0-100.0 [facility] Comment on above: Performed By: #### 2 927249, 2113514, 5875237, 76391682, 3730767 ####[facility] [address] [place] [address] 560[address] Monocytes (Bld) [#/Vol] 0.7 E9/L Normal 0.2-1.0 [facility] Comment on above: Performed By: #### 2 158801, 5752729, 8778145, 68969327, 1056110 ####[facility] [address] [place] [address] Neutrophils (Bld) [#/Vol] 5.4 E9/L Normal 2.0-7.5 [facility] Comment on above: Performed By: #### 2 833620, 7645058, 7623886, 61947699, 1214864 ####[address] [address] Neutrophils/100 WBC (Bld) 53.1 % Normal 36.0-75.0 [facility] Comment on above: Performed By: #### 2 851369, 7867183, 5516883, 94852771, 2019021 ####[address] [address] Platelet 476.0 E9/L Normal 150.0-500.0 [facility] Comment on above: Performed By: #### 2 587438, 5977073, 3240243, 03790904, 1841976 ####[address] [address] Platelet mean volume (Bld) [Entitic vol] 7.7 fL Normal 6.4-10.8 [facility] Comment on above: Performed By: #### 2 287872, 2090512, 3316569, 03136380, 1915459 ####[address] [address] RBC (Bld) [#/Vol] 4.3 E12/L Normal 4.3-5.9 [facility] Comment on above: Performed By: #### 2 960376, 3221773, 4433630, 67291101, 8108450 ####[address] [address] WBC corrected for nucl RBC Auto (Bld) [#/Vol] 10.3 E9/L Normal 4.0-11.0 [facility] Comment on above: Performed By: #### 2 759550, 0013321, 3166732, [id number] ####[facility] [id number] [place] [address] CHEMISTRYOrdered By: SYSTEM SYSTEM on 09-30-2023 Albumin [...] mg/mg Low 10 - 20 Remisol Chem Discharge Instructionson Discharge Instructions [id number] 6#[id number] Normal [facility] ED Clinical Summaryon 2023 ED Clinical Summary [place] [id number] ED Clinical Summary Person Information [facility] Age[facility] 38 Years : 1985 Sex: Female Language: Belarusian PCP: NONE, XXXX Marital Status: Visit Id: [...] 09/30/2023 02:15:05 ADDRESS: [address] [place] [id number] PHYS DOC NOTES: MEDICAL INFORMATION: Prescriptions Given: [...] Follow up: With: Address: When: Ino Herr [facility] [address], [place] [address] [facility] (1) In 3 days 10/03/2023 DIAGNOSIS: AP (abdominal pain); Ovarian cyst Normal [facility] ED Note-Physicianon 09-30-19 ED Note-Physician Basic [...] taking oral tramadol, Toradol, Bentyl, and a [place] at [place] and has had no significant relief. She does have some nausea but no vomiting. No change in bowel movements. No urinary symptoms. She reports that she has had multiple ovarian cysts and did schedule a WET PROCESS TECHNICIAN appointment for possible hysterectomy but that is [...] and Complexity of Problems Differential Diagnosis: [] [facility] Data External documents reviewed: N/A My [...] of 3.1 but is otherwise overall reassuring. document management technician reports that the ovarian cyst on [...] the information for Dr. Royal and another WET PROCESS TECHNICIAN in the area to see if he [...] mg/2 mL (more content not included)... Normal [facility] Comment on above: Result Comment: Elec [...] Follow these instructions at home: ? Take cgjy-cny-qrmlfau and prescription medicines only as told by [...] provider. Document Revised: 11/06/2020 Document Reviewed: 11/06/2020 [employer] Patient Education ? 2022 [employer] Normal [facility] ED Patient Summaryon 024 ED Patient Summary [address] [address] Patient Discharge Instructions Person Information Name: LIVIA NOYOLA Age: 38 Years Arrival Date: 09/29/2023 23:38:37 Discharge Diagnosis: AP (abdominal pain); Ovarian cyst Primary Care Physician: NONE, XXXX Provider Information Primary Provider: Ritesh Heath DO Advanced Mailing Clerk:Shazia The exam and treatment you received in the Emergency Department were for an urgent problem and are not intended as complete care. It is important that you follow up with a doctor, nurse practitioner, or physician?s store administrative assistant for ongoing care. If your symptoms [...] Follow-up Instructions: With: Address: When: Ino Royal [address] [place] [address], [address] [address] Business (1) In 3 days 10/03/2023 In the event that this physician does not participate in your insurance network, please consult with your insurance company to find a nearby participating provider. Patient Education Materials: Ovarian Cyst A MESSAGE TO ALL PATIENTS REGARDING OPIOIDS PRESCRIPTION OPIOIDS: WHAT YOU NEED TO KNOW Prescription opioids can be used to help relieve unpxjpqx-fs-ukzvkc pain and are often prescribed following a [...] be struggling with addiction, tell your health respiratory care program director and ask for guidance or call [facility]?S National Helpline at 3-083-725-XXXM. l Source: [place] Department o (more content not included)... Normal [facility] HEMATOLOGYOrdered By: SYSTEM SYSTEM on 09-30-2023 [...] 09-30-2023 Albumin [Mass/Vol] 4.4 g/dL Normal 3.3-5.0 [facility] Comment on above: Performed By: #### 2 436535, 4435173, 2147118, 08292322, 8171874 ####[facility] [address] [place] [address] Albumin/Globulin (S) [Mass conc ratio] 1.5 Normal 1.1-2.2 [facility] Comment on above: Performed By: #### 2 844176, 5548493, 7899825, 87322283, 0137116 ####[facility] [address] [place] [address] ALP [Catalytic activity/Vol] 64 Int._Unit/L Normal 21-98 [facility] Comment on above: Performed By: #### 2 713031, 9481681, 5964466, 55500315, 7720272 ####[facility] [address] [place] [address] ALT No additional P-5'-P [Catalytic activity/Vol] 9 Int._Unit/L Normal 6-46 [facility] Comment on above: Performed By: #### 2 980765, 6933755, 6866044, 99737101, 5073643 ####[facility] [address] [place] [address] AST [Catalytic activity/Vol] 12 Int._Unit/L Normal 5-43 [facility] Comment on above: Performed By: #### 2 371399, 9866491, 5939743, 80296357, 5232585 ####[facility] [address] [place] [address] Bilirubin [Mass/Vol] 0.2 mg/dL Normal 0.0-1.1 [facility] Comment on above: Performed By: #### 2 968685, 8943007, 5807090, 06518390, 9198623 ####[facility] [address] [place] [address] Bilirubin.direct [Mass/Vol] 0.0 mg/dL Normal 0.0-0.4 [facility] Comment on above: Performed By: #### 2 178257, 3616327, 8757795, 62277597, 8137823 ####[facility] [address] [place] [address] Bilirubin.indirect [Mass or moles/Vol] 0.2 mg/dL Normal 0.1-0.9 [facility] Comment on above: Performed By: #### 2 587664, 9604262, 9472278, 20871672, 1412551 ####[facility] [address] [place] [address] Globulin (S) [Mass/Vol] 3.0 g/dL Normal 1.4-4.0 [facility] Comment on above: Performed By: #### 2 752368, 4383361, 9861302, 93952700, 7928018 ####[facility] [address] [place] [address] Protein [Mass/Vol] 7.4 g/dL Normal 6.0-7.8 [facility] Comment on above: Performed By: #### 2 770622, 1801194, 3267846, 26955766, 5898511 ####[facility] [address] [place] [address] Lipase Levelon 09-30-2023 Lipase [Catalytic activity/Vol] 61 U/L High 13-58 [facility] Comment on above: Performed By: #### 2 496848, 5247562, 5806400, 30153752, 46994381 #### [facility] [address] [place] [address] SEROLOGYOrdered By: Ariadne Sheehan on 09-30-2023 HCG.beta subunit (U) [Moles/Vol] Negative Normal [facility] Man Sero U BetaHcg Qualon 09-30-2023 HCG.beta subunit (U) [Moles/Vol] Negative Normal [facility] Comment on above: Performed By: #### 2 418707, 0250962, 2717992, 10451057, 26407155 #### [facility] [address] [place] [address] UA with Cult Rflxon 09-30-19 24 Bacteria Auto Ql (U) Trace Normal Trace Fish [facility] Comment on above: Performed By: #### 2 718490, 8544648, 6499933, 44350302, 71462346 #### [facility] [address] [place] [address] Bilirubin Ql (U) Negative Normal Negative [facility] Comment on above: Performed By: #### 2 420847, 3141176, 5849083, 30235283, 69963541 #### [facility] [address] [place] [address] Clarity (U) Clear Normal Clear [facility] Comment on above: Performed By: #### 2 765670, 8531249, 6295257, 10253574, 91858781 #### [facility] [address] [place] [address] Color (U) Light-Yellow Normal Yellow [facility] Comment on above: Result Comment: Micr oscopic readings are only performed on those samples that meet specific criteria set forth by [facility]. Performed By: #### 2 405378, 6439588, 6473667, 21582891, 12313409 #### [facility] [address] [place] [address] Epithelial cells.squamous Auto (Urine sed) [#/Area] 3-4 Abnormal 0-2 [facility] Comment on above: Performed By: #### 2 274697, 4619368, 2591784, 02649409, 27579020 #### [facility] [address] [place] [address] Glucose Ql (U) Negative Normal Negative [facility] Comment on above: Performed By: #### 2 643201, 8107815, 2865808, 82881039, 51248063 #### [facility] [address] [place] [address] Hemoglobin Auto test strip (U) [Mass/Vol] Trace Abnormal Negative [facility] Comment on above: Performed By: #### 2 703504, 5358920, 8683944, 81256239, 10092659 #### [facility] [address] [place] [address] Ketones Auto test strip Ql (U) Negative Normal Negative [facility] Comment on above: Performed By: #### 2 964667, 5354965, 0537740, 50426195, 42655892 #### [facility] [address] [place] [address] Leukocyte esterase Auto test strip Ql (U) 75 Bertrand/uL Abnormal Negative [facility] Comment on above: Performed By: #### 2 420956, 1652608, 8130797, 84609490, 83373157 #### [facility] [address] [place] [address] Mucus Auto Ql (U) Negative Normal Negative [facility] Comment on above: Performed By: #### 2 919056, 7776256, 9893034, 29513670, 60254401 #### [facility] [address] [place] [address] Nitrite Auto test strip Ql (U) Negative Normal Negative [facility] Comment on above: Performed By: #### 2 916874, 0823485, 2048912, 55022060, 30875398 #### [facility] [address] [place] [address] pH (U) 5.5 [pH] Invalid Interpretation Code 5.0-9.0 [facility] Comment on above: Performed By: #### 2 634320, 6907583, 9774456, 42767473, 67725850 #### [facility] [address] [place] [address] Protein Ql (U) Negative Normal Negative [facility] Comment on above: Performed By: #### 2 033341, 8631547, 6382526, 21633894, 50985234 #### [facility] [address] [place] [address] RBC Ql (U) 4-20 Abnormal 0-3 [facility] Comment on above: Performed By: #### 2 738105, 3948564, 5916846, 47521456, 43993933 #### [facility] [address] [place] [address] Specific gravity (U) [Rel density] 1.017 Invalid Interpretation Code 1.005-1.030 [facility] Comment on above: Performed By: #### 2 502266, 0858475, 6474401, 32344677, 07249309 #### [facility] [address] [place] [address] Urobilinogen (U) [Mass/Vol] Negative Normal Negative [facility] Comment on above: Performed By: #### 2 842995, 8920596, 2853595, 86850213, 83525076 #### [facility] [address] [place] [address] WBC Auto (Urine sed) [#/Area] 0-5 Normal 0-5 [facility] Comment on above: Performed By: #### 2 509814, 6305082, 7396570, 25917888, 70257720 #### [facility] [address] [place] [address] URINALYSISOrdered By: SYSTEM SYSTEM on 09-30-2023 Bacteria [...] that meet specific criteria set forth by [facility]. Epithelial cells.squamous Auto (Urine sed) [...] 4-20 graded/HPF Invalid Interpretation Code 0-3graded/HP F [facility] UA Auto SS Specific gravity (U) [Rel density] 1.017 *NA* (09/30/23 12:08 AM) Invalid Interpretation Code 1.005 - 1.030 [facility] UA Auto SS Urobilinogen (U) [Mass/Vol] Negative Normal Negativemg/d L [facility] UA Auto SS WBC Auto (Urine sed) [#/Area] 0-5 graded/HPF Normal 0-5graded/HP F [facility] UA Auto SS URINALYSISOrdered By: Ritesh bishop on 09-30-2023 UA Spec Desc Clean Catch (09/30/23 12:08 AM) Normal [facility] UA Auto SS US Doppler Abd/Pelvis Comple kelby 09-30-2023 US Doppler Abd/Pelvis Complete Exam Date/Time: 09/30/2023 02:04 EDT Reason for Exam: Torsion Report PLEASE SEE US Pelvis Non-OB Complete REPORT DATED: 09/30/2023. Ordering Provider: Ritesh Heath FINAL REPORT Dictated: 09/30/2023 4:11 am Harvey Leslie MD Signed (Electronic Signature): 09/30/2023 4:11 am Signed by: Harvey Leslie MD Transcribed by: MILLIE Technologist: GERDA Miller [facility] US Pelvis Non-OB Completeon 09-30-2023 US [...] Transvaginal Ultrasound Performed Uterus Position Anteverted Normal [facility] US Transvaginal Non-OBon US Transvaginal Non-OB Exam Date/Time: 09/30/2023 02:03 EDT Reason for Exam: pssible torsion, known large cyst;Other (please specify) Report PLEASE SEE US Pelvis Non-OB Complete REPORT DATED: 09/30/2023. Ordering Provider: Ritesh Heath FINAL REPORT Dictated: 09/30/2023 4:11 am Harvey Leslie MD Signed (Electronic Signature): 09/30/2023 4:11 am Signed by: Harvey Leslie MD Transcribed by: MILLIE Technologist: GERDA Normal [facility] eGFRon 09-30-2023 eGFR 97 mL/min/1.73 m2 Normal >=59 [facility] Comment on above: Order Comment: Order added by Discern Expert. Performed By: #### 2 165035, 5050485, 0884657, 86401434, 16373178 #### [facility] [address] [place] [address] Consent for Treatmenton 09-11 Consent for Treatment [id number] #1.00TIFF [facility] UA with Cult Rflxon 09-29-19 Type of Urine collection method Clean Catch [facility] Comment on above: Performed By: #### 2 367341, 8032272, 0151568, 90416690, 77634389 #### [facility] [address] [id number] ED Clinical Summaryon 2023 ED Clinical Summary [address] [address] ED Clinical Summary Person Information Name: LIVIA NOYOLA/[facility] Age: 38 Years : 1985 Sex: Female Language: Belarusian PCP: NONE, XXXX Marital Status: Visit Id: [...] 09/26/2023 18:13:56 ADDRESS: [address] [place] [id number] PHYS DOC NOTES: MEDICAL INFORMATION: Prescriptions Given: New Medications [id number], [address], [place] [id number], [phone] diflunisal (diflunisal 500 mg Tab) 1 Tablets [...] INFORMATION: Instructions: Follow up: With: Address: When: [address] [place] [address] Business (1) In 3 days 09/29/2023 With: Address: When: Tarun [address] [place], [place] [phone] Business (1) In 3 days 09/29/2023 With: Address: When: XXXX NONE , [place] In 3 days DIAGNOSIS: Abdominal pain; Constipation; Ovarian cyst Normal [facility] ED Patient Education Noteon 09-27-2023 ED Patient Education Note Normal [facility] ED Patient Summaryon 024 ED Patient Summary [address] [address] Patient Discharge Instructions Person Information Name: LIVIA NOYOLA Age: 38 Years Arrival Date: 09/26/2023 13:54:18 Discharge Diagnosis: Abdominal pain; Constipation; Ovarian cyst Primary Care Physician: SHAZIA, XXXX Provider Information Primary Provider: Konstantin Penny DO Advanced Mailing Clerk:Shazia The exam and treatment you received in the Emergency Department were for an urgent problem and are not intended as complete care. It is important that you follow up with a doctor, nurse practitioner, or physician?s store administrative assistant for ongoing care. If your symptoms become worse or you do not improve as expected and you are unable to reach your usual health care provider, you should return to the Emergency Department. We are available 24 hours a day. MAGALILIVIA has been given the following list of patient education materials, prescriptions and follow-up instructions: Follow-up Instructions: With: Address: When: Soluto [address] [place] [address] Business (1) In 3 days 09/29/2023 With: Address: When: Tarun [address] [place], [place] [id number] Business (1) In 3 days 09/29/2023 With: Address: When: XXXX NONE , [place] In 3 days In the event that this physician does not participate in your insurance network, please consult with your insurance company to find a nearby participating provider. Patient Education Materials: A MESSAGE TO ALL PATIENTS REGARDING OPIOIDS PRESCRIPTION OPIOIDS: WHAT YOU NEED TO KNOW Prescription opioids can be used to help relieve axxtnbdo-tq-ifrmny pain and are often prescribed following a [...] and overdose. (more content not included)... Normal [facility] B hCG Qualon 09-26-2023 Beta HCG ( test) Ql Negative Normal [facility] Comment on above: Order Comment: FER dubois attempting lab work from IV start per Pt request. Phleb on standby if unable to get labs, [id number] 09/26/2023 14:42:36 EDT Performed By: #### 2 711408, 7911314, 9786604, 69975524, 11362888 #### [facility] [address] [place] [address] CBC w/ Auto Diffon 4 Anisocytosis Ql (Bld) PRESENT Invalid Interpretation Code [facility] Comment on above: Performed By: #### 2 528553, 6452776, 0105784, 71516740, 42668199 #### [facility] [address] [place] [address] Basophils/100 WBC (Bld) 0.8 % Normal 0.0-2.0 [facility] Comment on above: Performed By: #### 2 138758, 2953886, 4161690, 30896942, 13797627 #### [facility] [address] [place] [address] Basophils/Leukocytes Auto (Bld) [Pure # fraction] 0.1 E9/L Normal 0.0-0.2 [facility] Comment on above: Performed By: #### 2 266871, 0071891, 3660489, 03655269, 82902446 #### [facility] [address] [place] [address] Eosinophils (Bld) [#/Vol] 0.0 E9/L Normal 0.0-0.5 [facility] Comment on above: Performed By: #### 2 895521, 5951159, 1875558, 90832959, 59125679 #### [facility] [address] [place] [address] Eosinophils/100 WBC (Bld) 0.0 % Normal 0.0-8.0 [facility] Comment on above: Performed By: #### 2 259002, 4849849, 0859067, 43313487, 18122267 #### [facility] [address] [place] [address] Hypochromia Auto Ql (Bld) PRESENT Invalid Interpretation Code [facility] Comment on above: Performed By: #### 2 469064, 5724984, 8531548, 73483221, 85916373 #### [facility] [address] [place] [address] Lymphocytes (Bld) [#/Vol] 1.6 E9/L Normal 1.0-4.0 [facility] Comment on above: Performed By: #### 2 974627, 7667592, 0021031, 83775624, 20882500 #### [facility] [address] [place] [address] Lymphocytes/100 WBC (Bld) 22.7 % Normal 14.0-50.0 [facility] Comment on above: Performed By: #### 2 038888, 4239086, 2779932, 99008818, 22511848 #### [facility] [address] [place] [address] Microcytes Ql (Bld) PRESENT Invalid Interpretation Code [facility] Comment on above: Performed By: #### 2 242036, 1793359, 5786817, 90979448, 25403951 #### [facility] [address] [place] [address] Monocytes (Bld) [#/Vol] 0.3 E9/L Normal 0.2-1.0 [facility] Comment on above: Performed By: #### 2 858116, 1531206, 1324748, 64251253, 55965496 #### [facility] [address] [place] [address] Neutrophils (Bld) [#/Vol] 5.1 E9/L Normal 2.0-7.5 [facility] Comment on above: Performed By: #### 2 355882, 9537917, 0927377, 02248548, 24392785 #### [facility] [address] [place] [address] Neutrophils/100 WBC (Bld) 71.6 % Normal 36.0-75.0 [facility] Comment on above: Performed By: #### 2 950263, 8473889, 4367631, 43749290, 23936753 #### [facility] [address] [place] [address] Erythrocyte distribution width (RBC) [Ratio] 17.8 % High 10.9-14.2 [facility] Comment on above: Performed By: #### 2 798851, 7162445, 5290409, 07679205, 78376318 #### [facility] [address] [place] [address] Hematocrit (Bld) [Volume fraction] 36.2 % Normal 34.0-46.0 [facility] Comment on above: Performed By: #### 2 686070, 5947126, 0919832, 32935869, 11283910 #### [facility] [address] [place] [address] Hemoglobin (Bld) [Mass/Vol] 11.2 g/dL Low 12.0-16.0 [facility] Comment on above: Performed By: #### 2 538718, 2839239, 6420717, 47701403, 70905887 #### [facility] [address] [place] [address] MCH (RBC) [Entitic mass] 23.2 pg Low 27.0-34.0 [facility] Comment on above: Performed By: #### 2 398881, 9019038, 8968756, 11531323, 59807230 #### [facility] [address] [place] [address] MCHC (RBC) [Mass/Vol] 31.0 g/dL Low 31.4-36.0 [facility] Comment on above: Performed By: #### 2 537321, 7431346, 6192177, 05612810, 47519616 #### [facility] [address] [place] [address] MCV (RBC) [Entitic vol] 74.9 fL Low 80.0-100.0 [facility] Comment on above: Performed By: #### 2 603418, 2677470, 6003530, 90205117, 60019350 #### [facility] [address] [place] [address] Platelet mean volume (Bld) [Entitic vol] 7.5 fL Normal 6.4-10.8 [facility] Comment on above: Performed By: #### 2 996258, 4464727, 1395581, 80026366, 36793847 #### [facility] [address] [place] [address] Platelets (Bld) [#/Vol] 461.0 E9/L Normal 150.0-500.0 [facility] Comment on above: Performed By: #### 2 978895, 3966541, 6129416, 47749529, 30374320 #### [facility] [address] [place] [address] RBC (Bld) [#/Vol] 4.8 E12/L Normal 4.3-5.9 [facility] Comment on above: Performed By: #### 2 293481, 0825424, 9236098, 50270199, 97649355 #### [facility] [address] [place] [address] WBC corrected for nucl RBC Auto (Bld) [#/Vol] 7.1 E9/L Normal 4.0-11.0 [facility] Comment on above: Performed By: #### 2 499597, 9655644, 8078570, 72166906, 49391237 #### [facility] [address] [place] [address] CHEMISTRYOrdered By: SYSTEM SYSTEM on 09-26-2023 Amphetamines [...] 09-26-2023 Albumin [Mass/Vol] 4.7 g/dL Normal 3.3-5.0 [facility] Comment on above: Performed By: #### 2 316962, 3512947, 9104791, 30710071, 42624540 #### [facility] [address] [place] [address] Albumin/Globulin (S) [Mass conc ratio] 1.3 Normal 1.1-2.2 [facility] Comment on above: Performed By: #### 2 100158, 5367728, 6648645, 59816798, 49527650 #### [facility] [address] [place] [address] ALP [Catalytic activity/Vol] 61 Int._Unit/L Normal 21-98 [facility] Comment on above: Performed By: #### 2 102985, 4769356, 6253505, 70525008, 81873170 #### [facility] [address] [place] [address] ALT No additional P-5'-P [Catalytic activity/Vol] 11 Int._Unit/L Normal 6-46 [facility] Comment on above: Performed By: #### 2 265279, 6812740, 2220597, 15840608, 16304751 #### [facility] [address] [place] [address] Anion gap [Moles/Vol] 15 mmol/L Normal 6-16 [facility] Comment on above: Performed By: #### 2 360772, 5896926, 3261075, 91883630, 30172287 #### [facility] [address] [place] [address] AST [Catalytic activity/Vol] 16 Int._Unit/L Normal 5-43 [facility] Comment on above: Performed By: #### 2 308002, 5736152, 4356452, 30693663, 25758662 #### [facility] [address] [place] [address] Bilirubin [Mass/Vol] 0.8 mg/dL Normal 0.0-1.1 [facility] Comment on above: Performed By: #### 2 175722, 8161311, 8207657, 12396608, 94256604 #### [facility] [address] [place] [address] Calcium [Mass/Vol] 9.7 mg/dL Normal 8.9-11.1 [facility] Comment on above: Performed By: #### 2 370556, 2670730, 3900958, 35810988, 28170531 #### [facility] [address] [place] [address] Chloride [Moles/Vol] 107 mmol/L Normal 101-111 [facility] Comment on above: Performed By: #### 2 668482, 5069760, 9208667, 76750988, 12918702 #### [facility] [address] [place] [address] CO2 [Moles/Vol] 20 mmol/L Low 21-31 [facility] Comment on above: Performed By: #### 2 299270, 5581287, 9672962, 83464019, 53846044 #### [facility] [address] [place] [address] Creatinine [Mass/Vol] 0.7 mg/dL Normal 0.5-1.3 [facility] Comment on above: Performed By: #### 2 241946, 9053322, 4888005, 30864337, 40149381 #### [facility] [address] [place] [address] Globulin (S) [Mass/Vol] 3.6 g/dL Normal 1.4-4.0 [facility] Comment on above: Performed By: #### 2 452771, 2349927, 8897102, 16775666, 39699759 #### [facility] [address] [place] [address] Glucose [Mass/Vol] 120 mg/dL Normal 55-199 [facility] Comment on above: Performed By: #### 2 693789, [id number], [id number], [id number], [id number] #### [facility] [address] [place] [address] Potassium [Moles/Vol] 3.8 mmol/L Normal 3.5-5.3 [facility] Comment on above: Performed By: #### 2 493185, 1752526, 4503200, [id number], [id number] #### [facility] [address] [place] [address] Protein [Mass/Vol] 8.3 g/dL High 6.0-7.8 [facility] Comment on above: Performed By: #### 2 298621, 3590217, 2393124, 10227740, [id number] #### [facility] [address] [place] [address] Sodium [Moles/Vol] 138 mmol/L Normal 135-145 [facility] Comment on above: Performed By: #### 2 876364, 2339399, 5101410, 92887439, [id number] #### [facility] [address] [place] [address] Urea nitrogen [Mass/Vol] 5 mg/dL Normal 5-21 [facility] Comment on above: Performed By: #### 2 271446, 6823484, 9175398, 79282692, [id number] #### [facility] [address] [place] [address] Urea nitrogen/Creatinine [Mass ratio] 7 No Units Low 10-20 [facility] Comment on above: Performed By: #### 2 278813, 1383561, 1880908, [id number], [id number] #### [facility] [address] [place] [address] CT Abdomen/Pelvis w/ Contras ton 09-26-2023 CT [...] 300 Contrast amount in ml's: 100 Normal [facility] Consent for Treatmenton 09-11 Consent for Treatment [id number] #1.00TIFF Normal [facility] Discharge Instructionson Discharge Instructions [id number] #1.00TIFF Normal [facility] ED Note-Physicianon 09-26-19 ED Note-Physician Basic Information Time Seen: Konstantin Penny DO 09/26/2023 14:25 Chief Complaint c/o nausea and left abdominal pain radiating to back that started back up yesterday. took bentyl ibuprofen and tramadol around noon with no relief. recent admission to [place] a week ago for intusseption, ovarian cyst, elevated lactic. denies V/D History of Present Illness 38 year old female presents to the emergency department with chief complaint of abdominal pain. patient states this pain started yesterday and has associated nausea without vomiting. Patient states she was admitted 10 days ago to [facility] for intussusception, ovarian cysts, and elevated lactic. She states she was admitted for one day and that she had another CT done that showed resolution of the intussusception. She reports she was discharged home but went back to [place] ED yesterday for similar pain. She reports [...] and noted. We did review workup from [facility] just recently. Risks and benefits of [...] differential diagnosis. We did refer her to [facility] for follow-up. Patient also was found to have some constipation on CT therefore we talked about dietary and lifestyle modifications and I did prescribe MiraLAX here as well. She is to follow-up in the outpatient setting return to ER symptoms should change or worsen she is comfortable with this plan. I, Dr. Penny had a [id number] interaction with the patient. I personally performed [...] q12hr, # 20 tab(s), Refills(s) 0, Pharmacy: [facility]/pharmacy #[id number], 165, cm, 09/26/23 14:18:00 EDT, Height/Length Dosing, 81.2, kg, 09/26/23 14:18:00 EDT, Weight Dosing hyoscyamine, 0.125 mg = 1 tab(s), Oral, QID, X 5 day(s), # 20 tab(s), Refills(s) 0, Pharmacy: [facility]/pharmacy #[id number], 165, cm, 09/26/23 14:18:00 EDT, Height/Length Dosing, 81.2, kg, 09/26/23 14:18:00 EDT, Weight Dosing ketorolac, 30 mg = 1 mL, Injection, IV, Once, Stop date 09/26/23 15:40:00 EDT, STAT, Start date 09/26/23 15:40:00 EDT, 09/26/23 15:40:00 EDT polyethylene glycol 3350, 17 gm, Oral, Daily, X 7 day(s), # 119 gm, Refills(s) 0, Pharmacy: [facility]/pharmacy #[id number], 165, cm, 09/26/23 14:18:00 EDT, (more content not included)... Normal [facility] Comment on above: Result Comment: Elec [...] Lipase [Catalytic activity/Vol] 18 U/L Normal 13-58 [facility] Comment on above: Performed By: #### 2 149788, 2432359, 6803262, 66653950, [id number] #### [facility] [address] [place] [address] Outside Recordson 09-26-2023 Outside Records [id number] 0#1.00TIFF Normal [facility] SEROLOGYOrdered By: Nohemi Taylor on 09-26-2023 Beta HCG ( test) Ql Negative (09/26/23 2:45 PM) Normal [facility] Sero U Drug Screenon 09-26-2023 Amphetamines Screen method >1000 ng/mL Ql (U) Negative Normal NEGATIVE [facility] Comment on above: Result Comment: Nega tive Cutoff: <1000 ng/mL Performed By: #### 2 944296, 6973489, 3449217, 28347362, 34760969 #### [facility] [address] [place] [address] Barbiturates Screen Ql (U) Negative Normal NEGATIVE [facility] Comment on above: Result Comment: Nega tive Cutoff: <200 ng/mL Performed By: #### 2 095986, 6279914, 0444236, 56418688, 70082637 #### [facility] [address] [place] [address] Benzodiazepines Ql (U) Negative Normal NEGATIVE [facility] Comment on above: Result Comment: Nega tive Cutoff: <200 ng/mL Performed By: #### 2 188259, 9355685, 5635510, 02838273, 93468994 #### [facility] [address] [place] [address] Cannabinoids Screen Ql (U) Negative Normal NEGATIVE [facility] Comment on above: Result Comment: Nega tive Cutoff: <50 ng/mL Performed By: #### 2 035061, 9719571, 7909226, 57378622, 91815728 #### [facility] [address] [place] [address] Cocaine Ql (U) Negative Normal NEGATIVE [facility] Comment on above: Result Comment: Nega tive Cutoff: <300 ng/mL Performed By: #### 2 484348, 7359503, 3480703, 60960422, 74778365 #### [facility] [address] [place] [address] Opiates Screen Ql (U) Negative Normal NEGATIVE [facility] Comment on above: Result Comment: Nega tive Cutoff: <300 ng/mL Performed By: #### 2 222365, 6121196, 3662684, 24416268, 25049851 #### [facility] [address] [place] [address] Phencyclidine Screen method >25 ng/mL Ql (U) Negative Normal NEGATIVE [facility] Comment on above: Result Comment: Nega tive Cutoff: <25 ng/mL These drug screen results are to be used for medical (i.e., treatment) purposes only. Unconfirmed drug screening results must not be used for non-medical purposes (e.g., employment testing, legal testing). Performed By: #### 2 120305, 5059399, 5287104, 70289217, 03334680 #### [facility] [address] [place] [address] U Fentanyl Negative Normal NEGATIVE [facility] Comment on above: Result Comment: Nega tive Cutoff: <5 ng/mL These drug screen results are to be used for medical (i.e., treatment) purposes only. Unconfirmed drug screening results must not be used for non-medical purposes (e.g., employment testing, legal testing). Performed By: #### 2 139202, 9893192, 6435999, 23037627, 54831923 #### [facility] [address] [place] [address] UA with Cult Rflxon 09-26-19 24 Bilirubin Ql (U) Negative Normal Negative [facility] Comment on above: Performed By: #### 2 087825, 8376882, 6864836, 08767702, 74870933 #### [facility] [address] [place] [address] Clarity (U) Clear Normal Clear [facility] Comment on above: Performed By: #### 2 953795, 1260244, 3342178, 39287462, 30008726 #### [facility] [address] [place] [address] Color (U) Colorless Abnormal Yellow [facility] Comment on above: Result Comment: Micr oscopic readings are only performed on those samples that meet specific criteria set forth by [facility]. Performed By: #### 2 367503, 8554357, 2465569, 82565390, 99464046 #### [facility] [address] [place] [address] Glucose Ql (U) Negative Normal Negative [facility] Comment on above: Performed By: #### 2 144582, 0245203, 4949541, 66652013, 68516977 #### [facility] [address] [place] [address] Hemoglobin Auto test strip (U) [Mass/Vol] Negative Normal Negative [facility] Comment on above: Performed By: #### 2 670605, 1397720, 1249526, 21031463, 05696291 #### [facility] [address] [place] [address] Ketones Auto test strip Ql (U) Negative Normal Negative [facility] Comment on above: Performed By: #### 2 374394, 3831453, 2423836, 36238312, 45644133 #### [facility] [address] [place] [address] Leukocyte esterase Auto test strip Ql (U) Negative Normal Negative [facility] Comment on above: Performed By: #### 2 737383, 2227313, 7058196, 54480253, 93441216 #### [facility] [address] [place] [address] Nitrite Auto test strip Ql (U) Negative Normal Negative [facility] Comment on above: Performed By: #### 2 525107, 8592510, 2481133, 58896503, 80423447 #### [facility] [address] [place] [address] pH (U) 6.0 [pH] Invalid Interpretation Code 5.0-9.0 [facility] Comment on above: Performed By: #### 2 745629, 4757580, 4188230, 87135330, 68725908 #### [facility] [address] [place] [address] Protein Ql (U) Negative Normal Negative [facility] Comment on above: Performed By: #### 2 684023, 9486938, 1987117, 06359592, 99760558 #### [facility] [address] [place] [address] Specific gravity (U) [Rel density] 1.004 Invalid Interpretation Code 1.005-1.030 [facility] Comment on above: Performed By: #### 2 100165, 1285675, 1382629, 85639580, 21498870 #### [facility] [address] [place] [address] Urobilinogen (U) [Mass/Vol] Negative Normal Negative [facility] Comment on above: Performed By: #### 2 360429, 6893363, 9944930, 84586371, 76845812 #### [facility] [address] [place] [address] Type of Urine collection method Clean Catch Normal [facility] Comment on above: Performed By: #### 2 486730, 3862878, 2664420, 42299470, 95443942 #### [facility] [address] [place] [address] URINALYSISOrdered By: SYSTEM SYSTEM on 09-26-2023 Bilirubin [...] that meet specific criteria set forth by [facility]. Glucose Ql (U) Negative Normal [...] Desc Clean Catch (09/26/23 2:49 PM) Normal [facility] UA Auto SS US Pelvis Non-OB Completeon [...] Transvaginal Ultrasound Performed Uterus Position Anteverted Normal [facility] US Transvaginal Non-OBon US Transvaginal Non-OB Exam Date/Time: 09/26/2023 17:41 EDT Reason for Exam: Pelvic pain Report Please see ultrasound pelvis non-OB complete report Ordering Provider: Konstantin Penny FINAL REPORT Dictated: 09/26/2023 5:53 pm Chad Mo DO Signed (Electronic Signature): 09/26/2023 5:53 pm Signed by: Chad Mo DO Transcribed by: MILLIE Technologist: HAILEY Miller [facility] eGFRon 09-26-2023 eGFR 114 mL/min/1.73 m2 Normal >=59 [facility] Comment on above: Order Comment: Order added by Discern Expert. Performed By: #### 2 763685, 4863483, 7942001, 74181701, 87645572 #### [facility] [address] [place] [address] CBC With Platelet and Differ entialon 09-06-2023 Basophils (Bld) [#/Vol] 0.1 10*3/uL Normal 0.0-0.2 [facility] Comment on above: Performed By: #### C BCWD #### [facility] [address] [place] [address] Basophils/100 WBC (Bld) 0.6 % Normal [facility] Comment on above: Performed By: #### C BCWD #### [facility] [address] [place] [address] Eosinophils (Bld) [#/Vol] 0.1 10*3/uL Normal 0.0-0.7 [facility] Comment on above: Performed By: #### C BCWD #### [facility] [address] [place] [address] Eosinophils/100 WBC (Bld) 0.6 % Normal [facility] Comment on above: Performed By: #### C BCWD #### [facility] [address] [place] [address] Erythrocyte distribution width (RBC) [Ratio] 15.9 % Critically high 11.5-14.5 [facility] Comment on above: Performed By: #### C BCWD #### [facility] [address] [place] [address] Hematocrit (Bld) [Volume fraction] 34.5 % Low 37.0-47.0 [facility] Comment on above: Performed By: #### C BCWD #### [facility] [address] [place] [address] Hemoglobin (Bld) [Mass/Vol] 10.1 g/dL Low 12.0-16.0 [facility] Comment on above: Performed By: #### C BCWD #### [facility] [address] [place] [address] Lymphocytes (Bld) [#/Vol] 4.4 10*3/uL Normal 1.0-4.8 [facility] Comment on above: Performed By: #### C BCWD #### [facility] [address] [place] [address] Lymphocytes/100 WBC (Bld) 54.2 % Normal [facility] Comment on above: Performed By: #### C BCWD #### [facility] [address] [place] [address] MCH (RBC) [Entitic mass] 22.9 pg Low 27.0-31.3 [facility] Comment on above: Performed By: #### C BCWD #### [facility] [address] [place] [address] MCHC 29.3 % Low 33.0-37.0 [facility] Comment on above: Performed By: #### C BCWD #### [facility] [address] [place] [address] MCV (RBC) [Entitic vol] 78.2 fL Low 79.4-94.8 [facility] Comment on above: Performed By: #### C BCWD #### [facility] [address] [place] [address] Monocytes (Bld) [#/Vol] 0.5 10*3/uL Normal 0.2-0.8 [facility] Comment on above: Performed By: #### C BCWD #### [facility] [address] [place] [address] Monocytes/100 WBC (Bld) 6.5 % Normal [facility] Comment on above: Performed By: #### C BCWD #### [facility] [address] [place] [address] Neutrophils (Bld) [#/Vol] 3.1 10*3/uL Normal 1.4-6.5 [facility] Comment on above: Performed By: #### C BCWD #### [facility] [address] [place] [address] Neutrophils/100 WBC (Bld) 37.9 % Normal [facility] Comment on above: Performed By: #### C BCWD #### [facility] [address] [place] [address] Platelets (Bld) [#/Vol] 482 10*3/uL Critically high 130-40 0 [facility] Comment on above: Performed By: #### C BCWD #### [facility] [address] [place] [address] RBC (Bld) [#/Vol] 4.41 10*6/uL Normal 4.20-5.40 [facility] Comment on above: Performed By: #### C BCWD #### [facility] [address] [place] [address] WBC (Bld) [#/Vol] 8.1 10*3/uL Normal 4.8-10.8 [facility] Comment on above: Performed By: #### C BCWD #### [facility] [address] [place] [address] Comprehensive Metabolic Pane van 09-06-2023 Albumin [Mass/Vol] 4.4 g/dL Normal 3.5-4.6 [facility] Comment on above: Performed By: #### C MP #### [facility] [address] [place] [address] ALP [Catalytic activity/Vol] 72 U/L Normal 40-130 [facility] Comment on above: Performed By: #### C MP #### [facility] [address] [place] [address] ALT [Catalytic activity/Vol] 15 U/L Normal 0-33 [facility] Comment on above: Performed By: #### C MP #### [facility] [address] [place] [address] Anion gap [Moles/Vol] 11 mmol/L Normal 9-15 [facility] Comment on above: Performed By: #### C MP #### [facility] [address] [place] [address] AST [Catalytic activity/Vol] 18 U/L Normal 0-35 [facility] Comment on above: Performed By: #### C MP #### [facility] [address] [place] [address] Bilirubin [Mass/Vol] 0.4 mg/dL Normal 0.2-0.7 [facility] Comment on above: Performed By: #### C MP #### [facility] [address] [place] [address] Calcium [Mass/Vol] 9.5 mg/dL Normal 8.5-9.9 [facility] Comment on above: Performed By: #### C MP #### [facility] [address] [place] [address] Chloride [Moles/Vol] 102 mmol/L Normal 95-107 [facility] Comment on above: Performed By: #### C MP #### [facility] [address] [place] [address] CO2 [Moles/Vol] 24 mmol/L Normal 20-31 [facility] Comment on above: Performed By: #### C MP #### [facility] [address] [place] [address] Creatinine [Mass/Vol] 0.59 mg/dL Normal 0.50-0.90 [facility] Comment on above: Performed By: #### C MP #### [facility] [address] [place] [address] GFR >90.0 Normal >60 [facility] Comment on above: Result Comment: Meghan atric [...] secretion. Performed By: #### C MP #### [facility] [address] [place] [address] Globulin (S) [Mass/Vol] 3.5 g/dL Normal 2.3-3.5 [facility] Comment on above: Performed By: #### C MP #### [facility] [address] [place] [address] Glucose [Mass/Vol] 98 mg/dL Normal 70-99 [facility] Comment on above: Performed By: #### C MP #### [facility] [address] [place] [address] Potassium [Moles/Vol] 3.2 mmol/L Low 3.4-4.9 [facility] Comment on above: Performed By: #### C MP #### [facility] [address] [place] [address] Protein [Mass/Vol] 7.9 g/dL Normal 6.3-8.0 [facility] Comment on above: Performed By: #### C MP #### [facility] [address] [place] [address] Sodium [Moles/Vol] 137 mmol/L Normal 135-[address] [facility] Comment on above: Performed By: #### C MP #### [facility] [address] [place] [address] Urea nitrogen [Mass/Vol] 4 mg/dL Low 6-20 [facility] Comment on above: Performed By: #### C MP #### [facility] [address] [place] [address] US NON OB TRANSVAGINALon US NON OB [...] Jessy Campos MD 09/06/23 Final result Normal [facility] US PELVIS COMPLETEon 024 US PELVIS COMPLETE [...] Jessy Campos MD 09/06/23 Final result Normal [facility] Urinalysis, reflex to cultur silvino 09-06-2023 Urine Reflexed to Culture Not Indicated Normal [facility] Comment on above: Performed By: #### U AR #### [facility] [address] [place] [address] Bilirubin Ql (U) Negative Normal Negative [facility] Comment on above: Performed By: #### U AR #### [facility] [address] [place] [address] Clarity (U) Clear Normal Clear [facility] Comment on above: Performed By: #### U AR #### [facility] [address] [place] [address] Color (U) Yellow Normal Straw/Vieques [facility] Comment on above: Performed By: #### U AR #### [facility] [address] [place] [address] Glucose Ql (U) >=1000 Abnormal Negative [facility] Comment on above: Performed By: #### U AR #### [facility] [address] [place] [address] Hemoglobin Ql (U) TRACE Abnormal Negative [facility] Comment on above: Performed By: #### U AR #### [facility] [address] [place] [address] Ketones Ql (U) >=80 Abnormal Negative [facility] Comment on above: Performed By: #### U AR #### [facility] [address] [place] [address] Leukocyte esterase Test strip Ql (U) Negative Normal Negative [facility] Comment on above: Performed By: #### U AR #### [facility] [address] [place] [address] Nitrite Ql (U) Negative Normal Negative [facility] Comment on above: Performed By: #### U AR #### [facility] [address] [place] [address] pH (U) 5.0 [pH] Normal 5.0-9.0 [facility] Comment on above: Performed By: #### U AR #### [facility] [address] [place] [address] Protein Ql (U) TRACE Abnormal Negative [facility] Comment on above: Performed By: #### U AR #### [facility] [address] [place] [address] Specific gravity (U) [Rel density] 1.025 Normal 1.005-1.03 [facility] Comment on above: Performed By: #### U AR #### [facility] [address] [place] [address] Urobilinogen Qn (U) 0.2 {Ivone'U}/dL Normal < 2.0 [facility] Comment on above: Performed By: #### U AR #### [facility] [address] [place] [address] Urine Microscopicon 09-06-19 24 Bacteria LM.HPF (Urine sed) [#/Area] Negative Normal Negative [facility] Comment on above: Performed By: #### U ARELIS #### [facility] [address] [place] [address] Urine Epithelial Cells Auto 0-2 Normal 0-5 [facility] Comment on above: Performed By: #### U ARELIS #### [facility] [address] [place] [address] Urine Hyaline Casts Auto 0-1 Normal 0-5 [facility] Comment on above: Performed By: #### U ARELIS #### [facility] [address] [place] [address] Urine RBC Auto 3-5 Abnormal 0-5 [facility] Comment on above: Performed By: #### U ARELIS #### [facility] [address] [place] [address] Urine WBC Auto 0-2 Normal 0-5 [facility] Comment on above: Performed By: #### U ARELIS #### [facility] [address] [place] [address] ED Note-Physicianon 08-01-19 ED Note-Physician Basic Information [...] endometritis for which she follows with a WET PROCESS TECHNICIAN at the [facility]. Review of Systems A 10 point [...] for discharge home and follow-up with her WET PROCESS TECHNICIAN. Short course of pain medication as prescribed after an OARRS review for this patient. Return precautions were discussed. All questions were answered. The patient was discharged home for outpatient follow-up for her acute on chronic pain. Assessment/Plan Abdominal pain, acute (R10.9: Unspecified abdominal pain) Ordered: acetaminophen-oxycod one, 1 tab(s), Oral, q6hr Pain 8-10 for 3 day(s), 12 tab(s), Refill(s) 0, [id number], 165.1, cm, 02/18/24 15:42:00 EST, Height/Length Dosing, 82.9, kg, 07/31/23 [...] Discharge D (more content not included)... Normal [facility] Comment on above: Result Comment: Elec tronically Signed By: Jignesh Dumont DO.br\Date and Time Signed: 08/01/23 09:21 EST B hCG Qualon 07-31-2023 Beta HCG ( test) Ql Negative Normal [facility] Comment on above: Performed By: #### 2 619902, 2515059, 3486743, 25465876, 61788543 #### [facility] [address] [place] [address] BMPon 07-31-2023 Anion gap [Moles/Vol] 15 mmol/L Normal 6-16 [facility] Comment on above: Performed By: #### 2 488203, 6540504, 3048726, 25599406, 75122895 #### [facility] [address] [place] [address] BUN/Creat Ratio 4 No Units Low 10-20 [facility] Comment on above: Performed By: #### 2 161954, 1951458, 3870669, 68851464, 15996250 #### [facility] [address] [place] [address] Calcium [Mass/Vol] 9.6 mg/dL Normal 8.9-11.1 [facility] Comment on above: Performed By: #### 2 285399, 4543492, 0573202, 79137091, 36754876 #### [facility] [address] [place] [address] Chloride [Moles/Vol] 106 mmol/L Normal 101-111 [facility] Comment on above: Performed By: #### 2 992106, 1259703, 7606335, 43797255, 40120145 #### [facility] [address] [place] [address] CO2 [Moles/Vol] 21 mmol/L Normal 21-31 [facility] Comment on above: Performed By: #### 2 150644, 8742554, 2034691, 22323726, 93963815 #### [facility] [address] [place] [address] Creatinine [Mass/Vol] 0.9 mg/dL Normal 0.5-1.3 [facility] Comment on above: Performed By: #### 2 474518, 9518149, 6867810, 27527513, 73216110 #### [facility] [address] [place] [address] Glucose [Mass/Vol] 109 mg/dL Normal 55-199 [facility] Comment on above: Performed By: #### 2 720649, 9042523, 4724396, 66146882, 31199497 #### [facility] [address] [place] [address] Potassium [Moles/Vol] 3.6 mmol/L Normal 3.5-5.3 [facility] Comment on above: Performed By: #### 2 161304, 0371222, 4923486, 86156324, 43890193 #### [facility] [address] [place] [address] Sodium [Moles/Vol] 138 mmol/L Normal 135-145 [facility] Comment on above: Performed By: #### 2 306033, 3972404, 4260890, 98474483, 84779916 #### [facility] [address] [place] [address] Urea nitrogen [Mass/Vol] mg/dL Low 5-21 [facility] Comment on above: Performed By: #### 2 807485, 4871248, 6246754, 44914886, 81857795 #### [facility] [address] [place] [address] CBC w/ Auto Diffon 4 Anisocytosis Ql (Bld) PRESENT Invalid Interpretation Code [facility] Comment on above: Performed By: #### 2 484299, 3218482, 5420852, 95310397, 18226709 #### [facility] [address] [place] [address] Microcyte PRESENT Invalid Interpretation Code [facility] Comment on above: Performed By: #### 2 190770, 6245481, 4053833, 31295807, 27384084 #### [facility] [address] [place] [address] RBC morphology finding Nom (Bld) SEE MORPHOLOGY Invalid Interpretation Code [facility] Comment on above: Performed By: #### 2 089415, 6338457, 1606875, 94954860, 30594593 #### [facility] [address] [place] [address] Basophil Absolute 0.1 E9/L Normal 0.0-0.2 [facility] Comment on above: Performed By: #### 2 563417, 1286974, 7383543, 45003657, 43075796 #### [facility] [address] [place] [address] Basophils/100 WBC (Bld) 1.1 % Normal 0.0-2.0 [facility] Comment on above: Performed By: #### 2 396942, 0069584, 4130993, 14376428, 41304036 #### [facility] [address] [place] [address] Eos Absolute 0.0 E9/L Normal 0.0-0.5 [facility] Comment on above: Performed By: #### 2 875295, 8867788, 5012417, 70372933, 37514733 #### [facility] [address] [place] [address] Eosinophils/100 WBC (Bld) 0.2 % Normal 0.0-8.0 [facility] Comment on above: Performed By: #### 2 563601, 0202989, 7945304, 03757268, 20658392 #### [facility] [address] [place] [address] Erythrocyte distribution width (RBC) [Ratio] 16.5 % High 10.9-14.2 [facility] Comment on above: Performed By: #### 2 888914, 7749862, 3980118, 04849087, 15281863 #### [facility] [address] [place] [address] Hematocrit (Bld) [Volume fraction] 36.0 % Normal 34.0-46.0 [facility] Comment on above: Performed By: #### 2 036132, 6439425, 8890492, 85061734, 52635784 #### [facility] [address] [place] [address] Hemoglobin (Bld) [Mass/Vol] 11.4 g/dL Low 12.0-16.0 [facility] Comment on above: Performed By: #### 2 493572, 8487402, 0767648, 72301972, 66789710 #### [facility] [address] [place] [address] Lymph Absolute 2.2 E9/L Normal 1.0-4.0 [facility] Comment on above: Performed By: #### 2 057148, 5585696, 2029485, 30158492, 39006585 #### [facility] [address] [place] [address] Lymphocytes/100 WBC (Bld) 25.3 % Normal 14.0-50.0 [facility] Comment on above: Performed By: #### 2 516865, 6124511, 2460669, 68827818, 83504050 #### [facility] [address] [place] [address] MCH (RBC) [Entitic mass] 24.0 pg Low 27.0-34.0 [facility] Comment on above: Performed By: #### 2 256802, 7998419, 3411555, 59641604, 13500852 #### [facility] [address] [place] [address] MCHC (RBC) [Mass/Vol] 31.9 g/dL Normal 31.4-36.0 [facility] Comment on above: Performed By: #### 2 982391, 6754067, 4723570, 87402993, 33712042 #### [facility] [address] [place] [address] MCV (RBC) [Entitic vol] 75.2 fL Low 80.0-100.0 [facility] Comment on above: Performed By: #### 2 933925, 5923826, 1411972, 84975044, 68595790 #### [facility] [address] [place] [address] Kay Absolute 0.5 E9/L Normal 0.2-1.0 [facility] Comment on above: Performed By: #### 2 023335, 3498490, 7011711, 84201159, 25737042 #### [facility] [address] [place] [address] Monocytes/100 WBC (Bld) 5.4 % Normal 4.0-14.0 [facility] Comment on above: Performed By: #### 2 066110, 6129915, 3829246, 22164672, 29268110 #### [facility] [address] [place] [address] Neutro Absolute 5.9 E9/L Normal 2.0-7.5 [facility] Comment on above: Performed By: #### 2 781941, 0206404, 7662959, 75546013, 91333082 #### [facility] [address] [place] [address] Neutro Auto 68.0 % Normal 36.0-75.0 [facility] Comment on above: Performed By: #### 2 819714, 0941767, 5818763, 46519375, 79054058 #### [facility] [address] [place] [address] Platelet 612.0 E9/L High 150.0-500.0 [facility] Comment on above: Performed By: #### 2 748252, 7657080, 0607089, 11512141, 40687502 #### [facility] [address] [place] [address] Platelet mean volume (Bld) [Entitic vol] 7.4 fL Normal 6.4-10.8 [facility] Comment on above: Performed By: #### 2 276243, 5669565, 2906019, 04477030, 73397687 #### [facility] [address] [place] [address] RBC 4.7 E12/L Normal 4.3-5.9 [facility] Comment on above: Performed By: #### 2 614529, 9597387, 0449190, 45797594, 12226701 #### [facility] [address] [place] [address] WBC 8.6 E9/L Normal 4.0-11.0 [facility] Comment on above: Performed By: #### 2 220837, 2933481, 4119144, 76538679, 25278205 #### [facility] [address] [place] [address] CHEMISTRYOrdered By: SYSTEM SYSTEM on 07-31-2023 Albumin [...] Oral contrast amount in ml's: 0 Normal [facility] Discharge Instructionson Discharge Instructions [id number] 020 [id number] #1.00TIFF Normal [facility] ED Clinical Summaryon 2023 ED Clinical Summary [place] [address] ED Clinical Summary Person Information Name: LIVIA NOYOLA/[facility] Age: 38 Years : 1985 Sex: Female Language: Belarusian PCP: NONE, XXXX Marital Status: Visit Id: [...] 07/31/2023 18:03:59 ADDRESS: [address] [place] [id number] PHYS DOC NOTES: MEDICAL INFORMATION: Prescriptions Given: New Medications [id number], [address], [place] [id number], [phone] acetaminophen-oxycod one (Percocet 5 mg-325 mg oral [...] up: With: Address: When: Follow-up with your WET PROCESS TECHNICIAN at [facility] In 3 days 08/03/2023 Comments: Call [...] worsening symptoms. DIAGNOSIS: Abdominal pain, acute Normal [facility] ED Patient Education Noteon 07-31-2023 ED Patient [...] these instructions at home: Medicines ? Take ujwb-yrf-owtdxxd and prescription medicines only as told by [...] your condition for any changes. ? Take ljtc-xjt-ewgmzle and prescription medicines only as told by [...] provider. Document Revised: 07/18/2020 Document Reviewed: 10/08/2019 [employer] Patient Education ? 2022 Lumiy. Normal [facility] ED Patient Summaryon 024 ED Patient Summary [place] [id number] Patient Discharge Instructions Person Information Name: LIVIA NOYOLA Age: 38 Years Arrival Date: 07/31/2023 15:33:06 Discharge Diagnosis: Abdominal pain, acute Primary Care Physician: NONE, XXXX Provider Information Primary Provider: Jignesh Dumont DO Advanced Mailing Clerk:Shazia The exam and treatment you received in the Emergency Department were for an urgent problem and are not intended as complete care. It is important that you follow up with a doctor, nurse practitioner, or physician?s store administrative assistant for ongoing care. If your symptoms [...] Instructions: With: Address: When: Follow-up with your WET PROCESS TECHNICIAN at [facility] In 3 days 08/03/2023 Comments: Call [...] opioids can be used to help relieve fewjwqht-qz-gxonee pain and are often prescribed following a [...] and al (more content not included)... Normal [facility] HEMATOLOGYOrdered By: Sloane Mazariegos on 07-31-2023 [...] Low 80.0 - 100.0 fL Remisol Heme Kay Absolute 0.5 E9/L Normal 0.2 - 1.0 [...] 07-31-2023 Albumin [Mass/Vol] 4.6 g/dL Normal 3.3-5.0 [facility] Comment on above: Performed By: #### 2 540235, 8083660, 6528675, 79477707, 89079252 #### [facility] [address] [place] [address] Albumin/Globulin [Mass ratio] 1.4 {ratio} Normal 1.1-2.2 [facility] Comment on above: Performed By: #### 2 382056, 7311272, 1864671, 93829227, 84796482 #### [facility] [address] [place] [address] Alk Phos 73 Int._Unit/L Normal 21-98 [facility] Comment on above: Performed By: #### 2 554326, 5865262, 5318773, 99554190, 74641605 #### [facility] [address] [place] [address] ALT 10 Int._Unit/L Normal 6-46 [facility] Comment on above: Performed By: #### 2 622667, 9745296, 1342814, 17040776, 10727895 #### [facility] [address] [place] [address] AST 11 Int._Unit/L Normal 5-43 [facility] Comment on above: Performed By: #### 2 294939, 2830109, 0540319, 95721005, 54775973 #### [facility] [address] [place] [address] Bili Direct 0.1 mg/dL Normal 0.0-0.4 [facility] Comment on above: Performed By: #### 2 195425, 5449022, 7567039, 42948126, 12181137 #### [facility] [address] [place] [address] Bili Indirect 0.4 mg/dL Normal 0.1-0.9 [facility] Comment on above: Performed By: #### 2 218903, 3030334, 1183023, 42972233, 80251846 #### [facility] [address] [place] [address] Bili Total 0.5 mg/dL Normal 0.0-1.1 [facility] Comment on above: Performed By: #### 2 674001, 3913704, 9340940, 13961504, 65161834 #### [facility] [address] [place] [address] Globulin (S) [Mass/Vol] 3.3 g/dL Normal 1.4-4.0 [facility] Comment on above: Performed By: #### 2 886348, 0353656, 3709031, 55577347, 11579888 #### [facility] [address] [place] [address] Protein [Mass/Vol] 7.9 g/dL High 6.0-7.8 [facility] Comment on above: Performed By: #### 2 611769, 0993067, 9233286, 07425606, 95031309 #### [facility] [address] [place] [address] Monitor Recordon 07-31-2023 Monitor Record [id number] 2#1.00TIFF Normal [facility] SEROLOGYOrdered By: Felicity patel on 07-31-2023 Beta HCG ( test) Ql Negative (07/31/23 4:20 PM) Normal [facility] Man Sero UA With Cult Reflexon 2023 Bacteria LM Ql (Urine sed) TRACE Normal Trace [facility] Comment on above: Performed By: #### 1 2360906 ####[facility] [address] [place] [address] Bilirubin Ql (U) Negative Normal Negative [facility] Comment on above: Performed By: #### 1 8170370 ####[address] [address] Clarity (U) CLEAR Normal Clear [facility] Comment on above: Performed By: #### 1 9924506 ####[address] [address] Color (U) YELLOW Normal Yellow [facility] Comment on above: Performed By: #### 1 9553804 ####[address] [address] Epithelial cells.squamous LM.HPF (Urine sed) [#/Area] 0-2 Normal 0-2 [facility] Comment on above: Performed By: #### 1 7892535 ####[facility] [address] [place] [address] Glucose Test strip (U) [Mass/Vol] Negative Normal Negative [facility] Comment on above: Performed By: #### 1 1230426 ####[address] [address] Hemoglobin Ql (U) Negative Normal Negative [facility] Comment on above: Performed By: #### 1 3098080 ####[address] [address] Ketones (U) [Mass/Vol] 1+ Abnormal Negative [facility] Comment on above: Performed By: #### 1 6681930 ####[facility] [address] [place] [address] [place].plasma/[place]. RBC (Bld) [Mass ratio] 0-3 Normal 0-3 [facility] Comment on above: Performed By: #### 1 7779706 ####[address] [address] Mucus Ql (Urine sed) TRACE Normal [facility] Comment on above: Performed By: #### 1 3356340 ####[address] [address] Nitrite Ql (U) Negative Normal Negative [facility] Comment on above: Performed By: #### 1 8414812 ####[address] [address] pH (U) 8.5 [pH] Invalid Interpretation Code 5.0-9.0 [facility] Comment on above: Performed By: #### 1 8778370 ####[address] [address] Protein (U) [Mass/Vol] Negative Normal Negative [facility] Comment on above: Performed By: #### 1 8557281 ####[address] [address] Specific gravity (U) [Rel density] 1.015 Invalid Interpretation Code 1.005-1.030 [facility] Comment on above: Performed By: #### 1 8170388 ####[address] [address] Type of Urine collection method Clean Catch Normal [facility] Comment on above: Performed By: #### 1 0893829 ####[address] [address] Urobilinogen Qn (U) 0.2 {Ivone'U}/dL Normal 0.0-1.0 [facility] Comment on above: Performed By: #### 1 9234429 ####[facility] [address] [place] [address] WBC Auto Ql (U) Negative Normal Negative [facility] Comment on above: Performed By: #### 1 9181421 ####[facility] [address] [place] [address] WBC LM.HPF (Urine sed) [#/Area] 0-5 Normal 0-5 [facility] Comment on above: Performed By: #### 1 0944439 ####[facility] [address] [place] [address] URINALYSISOrdered By: Felicity George on 07-31-2023 Bacteria [...] Interpretation Code Negative [facility] UA Auto SS [place].plasma/[place]. RBC (Bld) [Mass ratio] 0-3 /HPF Normal [...] [Mass/Vol] Negative (07/31/23 4:30 PM) Normal Negative [facility] UA Auto SS Specific gravity (U) [Rel density] 1.015 *NA* (07/31/23 4:30 PM) Invalid Interpretation Code 1.005 - 1.030 [facility] UA Auto SS UA Spec Desc Clean Catch (07/31/23 4:30 PM) Normal [facility] UA Auto SS Urobilinogen Qn (U) 0.4121968 {Ivone'U}/dL Normal 0.0 - 1.0 EU/dL [facility] UA Auto SS WBC Auto Ql (U) Negative (07/31/23 4:30 PM) Normal Negative [facility] UA Auto SS WBC LM.HPF (Urine sed) [#/Area] 0-5 /HPF Normal 0-5/HPF [facility] UA Auto SS eGFRon 07-31-2023 eGFR 85 mL/min/1.73 m2 Normal >=59 [facility] Comment on above: Order Comment: Order added by Discern Expert. Performed By: #### 2 605284, 8540623, 6410144, 41415495, 00223996 #### [facility] [address] [place] [address] ED NOTEon 06-23-2023 ED NOTE HNO ID: [id number] Author: DENNIS CAMARGO RN Service: ? Author Type: Registered Nurse Type: ED Notes Filed: 06/22/2023 22:17 Note Text: Patient given verbal and written D/C instructions. Medications and follow up care discussed. Instructed to return to ED if conditions and symptoms persist or worsen. All questions addressed and answered pt verbalized understanding. [facility]. Normal [facility] HAV IgM Ser Qlon 06-23-2023 HAV IgM Ql (S) Negative Normal Negative [facility] Comment on above: Order Comment: Speci men Type: BLOOD SPECIMENOrdering Facility: [facility] Address: [address] [place] [address] Result Comment: No e vidence of recent infection with Hepatitis A virus. Performed By: #### 3 1204-1, 5195-3, 19682-2 ####[facility] [id number] [place] [address] [place] HBV core IgM Ser Qlon 2023 HBV core IgM Ql (S) Negative Normal Negative [facility] Comment on above: Order Comment: Roselyn conway Type: BLOOD SPECIMENOrdering Facility: [facility] Address: [address] [place] [address] Result Comment: No e vidence of recent infection with Hepatitis B virus. Should recent infection be suspected, repeat testing may be considered 3-4 weeks after this draw. Performed By: #### 3 1204-1, 5195-3, 32011-1 ####[facility] [id number] [address] [place] HBV surface Ag Ser Qlon 06-13 HBV surface Ag Ql (S) Negative Normal Negative [facility] Comment on above: Order Comment: Roselyn conway Type: BLOOD SPECIMENOrdering Facility: [facility] Address: [address] [place] [address] Performed By: #### 3 1204-1, 5195-3, 42067-2 ####[facility] LABCLIA [id number] [place] [id number] [place] HCV RNA SerPl SENAIT+probe-[facility] on 06-23-2023 HCV RNA SENAIT+probe Qn Not detected Normal HCV RNA not detected by PCR. [facility] Comment on above: Order Comment: Roselyn conway Type: BLOOD SPECIMEN [facility] Address: [address] [place] [address] Performed By: #### 1 1011-4 #### [facility] CLIA [id number] [address] [place] [id number] [place] ALLIED HEALTHon 06-22-2023 ALLIED HEALTH HNO ID: [id number] Author: SELENA AMADOR RT(R) Service: Radiology Author [...] PERIPHERAL IV DATA: Inpatient - refer to [facility] documentation RADIOLOGY DEPARTMENT: CT; Exam(s) Completed: Abdomen/Pelvis SIGNATURE: RT Jose(R) PATIENT NAME: Livia Noyola DATE: June 22, 2023 TIME: 7:46 PM [facility] ALLIED HEALTH HNO ID: [id number] Author: DELLA BEST RDMS, RVT Service: Radiology Author Type: Mine Foreman Type: Allied Health Filed: 06/22/2023 18:55 Note [...] RDMS, RVT June 22, 2023 6:55 PM [facility] CBC W Auto Differential pane l (Bld)on 06-22-2023 Basophils (Bld) [#/Vol] 0.03 10*3/uL Normal <0.11 [facility] Comment on above: Order Comment: Speci men Type: BLOOD SPECIMENOrdering Facility: [facility] Address: [address] [place] [address] Performed By: #### 5 7021-8 ####[facility] [id number] [place] [address] [place] Basophils/100 WBC (Bld) 0.6 % [facility] Comment on above: Order Comment: Speci men Type: BLOOD SPECIMENOrdering Facility: [facility] Address: [address] [place] [address] Performed By: #### 5 7021-8 ####[facility] [id number] [place] [id number] [place] Differential cell count method Nom (Bld) Auto [facility] Comment on above: Order Comment: Speci men Type: BLOOD SPECIMENOrdering Facility: [facility] Address: [address] [place] [address] Performed By: #### 5 7021-8 ####[facility] [id number] [place] [address] [place] Eosinophils (Bld) [#/Vol] 0.03 10*3/uL Normal <0.46 [facility] Comment on above: Order Comment: Speci men Type: BLOOD SPECIMENOrdering Facility: [facility] Address: [address] [place] [address] Performed By: #### 5 7021-8 ####[facility] [id number] [address] [place], [place] [id number] [place] Eosinophils/100 WBC (Bld) 0.6 % Normal [facility] Comment on above: Order Comment: Speci men Type: BLOOD SPECIMENOrdering Facility: [facility] Address: [address] [place] [address] Performed By: #### 5 7021-8 ####[facility] [id number] [address] [place] [address] [place] Erythrocyte distribution width (RBC) [Ratio] 16.5 % High 11.5-15.0 [facility] Comment on above: Order Comment: Speci men Type: BLOOD SPECIMENOrdering Facility: [facility] Address: [address] [place] [address] Performed By: #### 5 7021-8 ####[facility] [id number] [place] Hematocrit (Bld) [Volume fraction] 37.7 % Normal 36.0-46.0 [facility] Comment on above: Order Comment: Speci men Type: BLOOD SPECIMENOrdering Facility: [facility] Address: [address] [place] [address] Performed By: #### 5 7021-8 ####[facility] LABORATORYCLIA [id number] [place] [id number] [place] Hemoglobin (Bld) [Mass/Vol] 11.7 g/dL Normal 11.5-15.5 [facility] Comment on above: Order Comment: Speci men Type: BLOOD SPECIMENOrdering Facility: [facility] Address: [address] [place] [address] Performed By: #### 5 7021-8 ####[facility] LABORATORYCLIA [id number] [address] [place] Immature granulocytes (Bld) [#/Vol] 10*3/uL Normal <0.10 [facility] Comment on above: Order Comment: Speci men Type: BLOOD SPECIMENOrdering Facility: [facility] Address: [address] [place] [address] Performed By: #### 5 7021-8 ####[facility] LABORATORYCLIA [id number] [address] [place] [address] [place] Immature granulocytes/100 WBC (Bld) 0.4 % Normal [facility] Comment on above: Order Comment: Speci men Type: BLOOD SPECIMENOrdering Facility: [facility] Address: [address] [place] [address] Performed By: #### 5 7021-8 ####[facility] LABORATORYCLIA [id number] [place] [address] [place] Lymphocytes (Bld) [#/Vol] 1.87 10*3/uL Normal 1.00-4.00 [facility] Comment on above: Order Comment: Speci men Type: BLOOD SPECIMENOrdering Facility: [facility] Address: [address] [place] [address] Performed By: #### 5 7021-8 ####[facility] LABORATORYCLIA [id number] [address] Lymphocytes/100 WBC (Bld) 34.4 % Normal [facility] Comment on above: Order Comment: Speci men Type: BLOOD SPECIMENOrdering Facility: [facility] Address: [address] [place] [address] Performed By: #### 5 7021-8 ####[facility] LABORATORYCLIA [id number] [place] [address] [place] MCH (RBC) [Entitic mass] 24.5 pg Low 26.0-34.0 [facility] Comment on above: Order Comment: Speci men Type: BLOOD SPECIMENOrdering Facility: [facility] Address: [address] [place] [address] Performed By: #### 5 7021-8 ####[facility] LABORATORYCLIA [id number] [address] [place] [address] [place] MCHC (RBC) [Mass/Vol] 31.0 g/dL Normal 30.5-36.0 [facility] Comment on above: Order Comment: Speci men Type: BLOOD SPECIMENOrdering Facility: [facility] Address: [address] [place] [address] Performed By: #### 5 7021-8 ####[facility] LABORATORYCLIA [id number] [address] [place], [place] [address] [place] MCV (RBC) [Entitic vol] 79.0 fL Low 80.0-100.0 L [facility] Comment on above: Order Comment: Speci men Type: BLOOD SPECIMENOrdering Facility: [facility] Address: [address] [place] [address] Performed By: #### 5 7021-8 ####[facility] LABORATORYCLIA [id number] [place] [address] [place] Monocytes (Bld) [#/Vol] 0.25 10*3/uL Normal <0.87 [facility] Comment on above: Order Comment: Speci men Type: BLOOD SPECIMENOrdering Facility: [facility] Address: [address] [place] [address] Performed By: #### 5 7021-8 ####[facility] LABORATORYCLIA [id number] [place] [address] [place] Monocytes/100 WBC (Bld) 4.6 % Normal [facility] Comment on above: Order Comment: Speci men Type: BLOOD SPECIMENOrdering Facility: [facility] Address: [address] [place] [address] Performed By: #### 5 7021-8 ####[facility] LABORATORYCLIA [id number] [place] [address] [place] Neutrophils (Bld) [#/Vol] 3.23 10*3/uL Normal 1.45-7.50 [facility] Comment on above: Order Comment: Speci men Type: BLOOD SPECIMENOrdering Facility: [facility] Address: [address] [place] [address] Performed By: #### 5 7021-8 ####[facility] LABORATORYCLIA [id number] [address] [place] [address] [place] Neutrophils/100 WBC (Bld) 59.4 % Normal [facility] Comment on above: Order Comment: Speci men Type: BLOOD SPECIMENOrdering Facility: [facility] Address: [address] [place] [address] Performed By: #### 5 7021-8 ####[facility] LABORATORYCLIA [id number] [place] [address] [place] Nucleated RBC (Bld) [#/Vol] 10*3/uL Normal <0.01 [facility] Comment on above: Order Comment: Speci men Type: BLOOD SPECIMENOrdering Facility: [facility] Address: [address] [place] [address] Performed By: #### 5 7021-8 ####[facility] LABORATORYCLIA [id number] [place] [address] [place] Nucleated RBC/100 WBC (Bld) [Ratio] 0.0 /100 WBC Normal [facility] Comment on above: Order Comment: Speci men Type: BLOOD SPECIMENOrdering Facility: [facility] Address: [address] [place] [address] Performed By: #### 5 7021-8 ####[facility] LABORATORYCLIA [id number] [place] [address] [place] Platelet mean volume (Bld) [Entitic vol] 9.4 fL Normal 9.0-12.7 [facility] Comment on above: Order Comment: Speci men Type: BLOOD SPECIMENOrdering Facility: [facility] Address: [address] [place] [address] Performed By: #### 5 7021-8 ####[facility] LABORATORYCLIA [id number] [place] [address] [place] Platelets (Bld) [#/Vol] 486 10*3/uL High 150-400 [facility] Comment on above: Order Comment: Speci men Type: BLOOD SPECIMENOrdering Facility: [facility] Address: [address] [place] [address] Performed By: #### 5 7021-8 ####[facility] LABORATORYCLIA [id number] [place] [address] [place] RBC (Bld) [#/Vol] 4.77 10*6/uL Normal 3.90-5.20 [facility] Comment on above: Order Comment: Speci men Type: BLOOD SPECIMENOrdering Facility: [facility] Address: [address] [place] [address] Performed By: #### 5 7021-8 ####[facility] LABORATORYCLIA [id number] [place] [address] [place] WBC (Bld) [#/Vol] 5.43 10*3/uL Normal 3.70-11.00 [facility] Comment on above: Order Comment: Speci men Type: BLOOD SPECIMENOrdering Facility: [facility] Address: [address] [place] [address] Performed By: #### 5 7021-8 ####[facility] LABORATORYCLIA [id number] [place] [address] [place] CT ABD/PEL W [...] Tissues: No significant finding. Lower thorax: Unremarkable. It Systems Manager (topogram) images: Unremarkable. IMPRESSION: No acute intra-abdominal or pelvic process identified. Front Counter Attendant: PSCB Transcribe Date/Time: Jun 22 2023 8:25P Dictated by : CHAD SCHILLING MD This examination was interpreted and the report reviewed and electronically signed by: CHAD SCHILLING MD on Jun 22 2023 8:29PM EST [id number] CN Normal [facility] Comprehensive metabolic 2000 panelon 06-22-2023 Albumin [Mass/Vol] 4.8 g/dL Normal 3.9-4.9 [facility] Comment on above: Order Comment: Speci men Type: BLOOD SPECIMENOrdering Facility: [facility] Address: [address] [place] [address] Performed By: #### 2 4323-8, 0-3, ####[facility] LABORATORYCLIA [id number] [place] [address] [place] ALP [Catalytic activity/Vol] 108 U/L Normal 34-123 [facility] Comment on above: Order Comment: Speci men Type: BLOOD SPECIMENOrdering Facility: [facility] Address: [address] [place] [address] Performed By: #### 2 4323-8, 3040-3, ####[facility] LABORATORYCLIA [id number] [place] [address] [place] ALT [Catalytic activity/Vol] 63 U/L High 7-38 [facility] Comment on above: Order Comment: Speci men Type: BLOOD SPECIMENOrdering Facility: [facility] Address: [address] [place] [address] Performed By: #### 2 4323-8, 3040-3, ####[facility] LABORATORYCLIA [id number] [place] [address] [place] Anion gap [Moles/Vol] 13 mmol/L Normal 9-18 [facility] Comment on above: Order Comment: Speci men Type: BLOOD SPECIMENOrdering Facility: [facility] Address: [place] [address] Performed By: #### 2 4323-8, 0-3, ####[facility] LABORATORYCLIA [id number] [place] [address] [place] AST [Catalytic activity/Vol] 109 U/L High 13-35 [facility] Comment on above: Order Comment: Speci men Type: BLOOD SPECIMENOrdering Facility: [facility] Address: [place] [address] Performed By: #### 2 4323-8, 3039-3, ####[facility] LABORATORYCLIA [id number] [place] [address] [place] Bilirubin [Mass/Vol] 0.4 mg/dL Normal 0.2-1.3 [facility] Comment on above: Order Comment: Speci men Type: BLOOD SPECIMENOrdering Facility: [facility] Address: [place] [address] Performed By: #### 2 4323-8, 3039-3, ####[facility] LABORATORYCLIA [id number] [place] [address] [place] Calcium [Mass/Vol] 9.6 mg/dL Normal 8.5-10.2 [facility] Comment on above: Order Comment: Speci men Type: BLOOD SPECIMENOrdering Facility: [facility] Address: [place] [address] Performed By: #### 2 4323-8, 3039-3, ####[facility] LABORATORYCLIA [id number] [place] [address] [place] Chloride [Moles/Vol] 102 mmol/L Normal 97-105 [facility] Comment on above: Order Comment: Speci men Type: BLOOD SPECIMENOrdering Facility: [facility] Address: [address] [place] [address] Performed By: #### 2 4323-8, 3040-3, ####[facility] LABORATORYCLIA [id number] [place] [address] [place] CO2 [Moles/Vol] 23 mmol/L Normal 22-30 [facility] Comment on above: Order Comment: Speci men Type: BLOOD SPECIMENOrdering Facility: [facility] Address: [address] [place] [address] Performed By: #### 2 4323-8, 3040-3, ####[facility] LABORATORYCLIA [id number] [place] [address] [place] [facility] Creatinine [Mass/Vol] 0.64 mg/dL Normal 0.58-0.96 [facility] Comment on above: Order Comment: Speci men Type: BLOOD SPECIMENOrdering Facility: [facility] Address: [address] [place] [address] Performed By: #### 2 4323-8, 3040-3, ####[facility] LABORATORYCLIA [id number] [address] Creatinine and Glomerular filtration rate.predicted panel (S/P/Bld) 118 mL/min/1.73m??? Normal >=60 [facility] Comment on above: Order Comment: Speci men Type: BLOOD SPECIMENOrdering Facility: [facility] Address: [address] [place] [address] Result Comment: Shelley mated Glomerular Filtration Rate [...] GFR. Performed By: #### 2 4323-8, 3040-3, 21243-3 ####[facility] LABORATORYCLIA [id number] [address] [place] [address] [place] Glucose [Mass/Vol] 102 mg/dL High 74-99 [facility] Comment on above: Order Comment: Speci men Type: BLOOD SPECIMENOrdering Facility: [facility] Address: [address] [place] [address] Result Comment: The [place] [employer] Association (ADA) provides guidance for cutoff [...] Standards of Medical Care in Diabetes 2016, [place] [employer]. Diabetes Care. 2016.39(Suppl 1). Performed By: #### 2 4323-8, 3, ####[facility] LABORATORYCLIA [id number] [place] [id number] [place] Potassium [Moles/Vol] 3.8 mmol/L Normal 3.7-5.1 [facility] Comment on above: Order Comment: Roselyn zoraida Type: BLOOD SPECIMENOrdering Facility: [facility] Address: [address] [place] [address] Performed By: #### 2 4323-8, 3039-3, ####[facility] LABORATORYCLIA [id number] [place] [address] [place] Protein [Mass/Vol] 8.2 g/dL High 6.3-8.0 [facility] Comment on above: Order Comment: Samiai men Type: BLOOD SPECIMENOrdering Facility: [facility] Address: [address] [place] [address] Performed By: #### 2 4323-8, 03, ####[facility] LABORATORYCLIA [id number] [place] [id number] [place] Sodium [Moles/Vol] 138 mmol/L Normal 136-144 [facility] Comment on above: Order Comment: Speci men Type: BLOOD SPECIMENOrdering Facility: [facility] Address: [place] [address] Performed By: #### 2 4323-8, 3040-3, 87771-2 ####[facility] LABORATORYCLIA [id number] [place] [address] [place] Urea nitrogen [Mass/Vol] 8 mg/dL Normal 7-21 [facility] Comment on above: Order Comment: Speci men Type: BLOOD SPECIMENOrdering Facility: [facility] Address: [place] [address] Performed By: #### 2 4323-8, 3040-3, ####[facility] LABORATORYCLIA [id number] [place] [address] [facility] ECG COMPLETEon 06-22-2023 ECG COMPLETE Ventricular Rate : 105 BPM Atrial Rate : 103 BPM P-R Interval : 152 ms QRS Duration : 77 ms Q-T Interval : 324 ms QTC Calculation(Bazett) : 429 ms Calculated P Au Train : 42 degrees Calculated R Au Train : 56 degrees Calculated T Au Train : 49 degrees Sinus tachycardia Low voltage, precordial leads Anteroseptal infarct, old Abnormal ECG no stemi 1814 Confirmed by MD SEN BRENT ([id number]), supervising editor news reel STEPHENIE ERIC (1940) on 06/23/2023 12:09:36 PM NAME : LIVIA NOYOLA PID : [id number] : 1985 Gender : Female Race : ORD : [id number] Procedure Date : Jun 22 2023 18:10:13 Edit Date : Jun 23 2023 12:09:40 Diagnosis: Sinus tachycardia Low voltage, precordial leads Anteroseptal infarct, old Abnormal ECG no stemi 1814 Confirmed by MD SEN BRENT ([id number]), supervising editor news reel STEPHENIE ERIC (1940) on 06/23/2023 12:09:36 PM Test Reason : Tachycardia Location : 502 : [facility] ED Overread By : MD SEN BRENT Edited By : STEPHENIE ERIC Referred By : , Acquired by : DAVID, [facility] ED NOTEon 06-22-2023 ED NOTE HNO ID: [id number] Author: DENNIS CAMARGO RN Service: ? Author Type: Registered Nurse Type: ED Notes Filed: 06/22/2023 21:56 Note Text: Assumed care of pt at this time and received report from previous RN. [facility] ED NOTE HNO ID: [id number] Author: MATILDE DAVIS RN Service: Nursing Author Type: Registered Nurse Type: ED Notes Filed: 06/22/2023 17:38 Note Text: Pt presents with LLQ pain that radiates to back that began this morning but worsened one hour prior to arrival. Denies urinary complaints. [facility] ED PROV NOTEon 06-22-2023 ED PROV NOTE HNO ID: [id number] Author: EVGENY SEN MD Service: Emergency Medicine [...] with some relief. 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 Normal [facility] ED Triage Noteon 06-22-2023 ED Triage Note HNO ID: [id number] Author: TABBY LUCIANO PA-C Service: ? Author Type: Physician Nail Artist Type: ED Triage Notes Filed: 06/22/2023 17:43 [...] treating team. SIGNATURE: Tabby Luciano PA-C Normal [facility] HCG Preg Ur Qlon 06-22-2023 HCG ( test) Ql (U) Negative Normal Negative [facility] Comment on above: Order Comment: Speci men Type: URINE SPECIMENOrdering Facility: [facility] Address: [address] [place] [address] Result Comment: This test is intended to aid in the early detection of . Very dilute urine samples, as indicated by a low specific gravity, may not contain dealer compliance representative levels of hCG. This test detects [...] Performed By: #### 2 106-3 ####[facility] LABORATORYCLIA [id number] [place] [id number] [place] Lipase SerPl-cCncon 06-22-19 Lipase [Catalytic activity/Vol] 34 U/L Normal 16-61 [facility] Comment on above: Order Comment: Speci men Type: BLOOD SPECIMENOrdering Facility: [facility] Address: [address] [place] [address] Performed By: #### 2 4323-8, 3040-3, 89374-9 ####[facility] LABORATORYCLIA [id number] [place] [id number] [place] Magnesium SerPl-mCncon 06-22 Magnesium [Mass/Vol] 2.2 mg/dL Normal 1.7-2.3 [facility] Comment on above: Order Comment: Speci men Type: BLOOD SPECIMENOrdering Facility: [facility] Address: [address] [place] [address] Performed By: #### 2 4323-8, 3040-3, 42263-3 ####[facility] LABORATORYCLIA [id number] [place] [id number] [place] [facility] US DOPPLER COMPLETEon 2023 US DOPPLER COMPLETE * * *Final Report* * * DATE OF EXAM: Jun 22 2023 6:54PM ALESSIO 1033 - US DOPPLER COMPLETE / PROCEDURE [...] and stored in a permanent archive. MQ: [facility]_2021 COMPARISON: None RESULT: Uterus: -Size: 8.1 [...] Normal sonographic appearance of the female pelvis. Front Counter Attendant: PSCB Transcribe Date/Time: Jun 22 2023 7:44P Dictated by : Vasu BURNS MD This examination was interpreted and the report reviewed and electronically signed by: Vasu BURNS MD on Jun 22 2023 7:48PM EST [id number] [facility] FEMALE PELVIS TRANSABD LT Don 06-22-2023 US FEMALE PELVIS TRANSABD LTD * * *Final [...] Normal sonographic appearance of the female pelvis. Front Counter Attendant: ANTONIO Transcribe Date/Time: Jun 22 2023 7:44P Dictated by : Vasu BURNS MD This examination was interpreted and the report reviewed and electronically signed by: Vasu BURNS MD on Jun 22 2023 7:48PM EST [id number] [facility] FEMALE PELVIS TRANSVAGon 06-22-2023 FEMALE PELVIS TRANSVAG * * *Final Report* * * DATE OF EXAM: Jun 22 2023 6:54PM [facility] 1060 - US FEMALE PELVIS TRANSVAG / [...] and stored in a permanent archive. MQ: [facility]_2021 COMPARISON: None RESULT: Uterus: -Size: 8.1 x [...] Normal sonographic appearance of the female pelvis. Front Counter Attendant: ANTONIO Transcribe Date/Time: Jun 22 2023 7:44P Dictated by : Vasu BURNS MD This examination was interpreted and the report reviewed and electronically signed by: Vasu BURNS MD on Jun 22 2023 7:48PM EST [id number] CN Normal [facility] Urinalysis complete panel (U )on 06-22-2023 Bacteria LM.HPF (Urine sed) [#/Area] Few Abnormal None Seen [facility] Comment on above: Order Comment: Speci men Type: URINE SPECIMENOrdering Facility: [facility] Address: [address] [place] [address] Performed By: #### 2 4356-8 ####[facility] HEALTHCLIA [id number] [place] [address] [place] Bilirubin Ql (U) Negative Normal Negative [facility] Comment on above: Order Comment: Speci men Type: URINE SPECIMENOrdering Facility: [facility] Address: [address] [place] [address] Performed By: #### 2 4356-8 ####[facility] LABORATORYCLIA [id number] [address] [place] Clarity (Unsp spec) Clear Normal Clear [facility] Comment on above: Order Comment: Speci men Type: URINE SPECIMENOrdering Facility: [facility] Address: [address] [place] [address] Performed By: #### 2 4356-8 ####[facility] LABORATORYCLIA [id number] [address] [place] [address] [place] Color (U) Yellow Normal Yellow [facility] Comment on above: Order Comment: Speci men Type: URINE SPECIMENOrdering Facility: [facility] Address: [address] [place] [address] Performed By: #### 2 4356-8 ####[facility] LABORATORYCLIA [id number] [address] [place] [address] [place] Epithelial cells LM.HPF (Urine sed) [#/Area] Few Normal [facility] Comment on above: Order Comment: Speci men Type: URINE SPECIMENOrdering Facility: [facility] Address: [address] [place] [address] Performed By: #### 2 4356-8 ####[facility] LABORATORYCLIA [id number] [address] [place] [address] [place] [facility] Glucose Test strip (U) [Mass/Vol] Negative Normal Negative [facility] Comment on above: Order Comment: Speci men Type: URINE SPECIMENOrdering Facility: [facility] Address: [address] [place] [address] Performed By: #### 2 4356-8 ####[facility] LABORATORYCLIA [id number] [address] [place] [address] [place] Hemoglobin Ql (U) Negative Normal Negative [facility] Comment on above: Order Comment: Speci men Type: URINE SPECIMENOrdering Facility: [facility] Address: [address] [place] [address] Performed By: #### 2 4356-8 ####[facility] LABORATORYCLIA [id number] [address] [place] [address] [place] Ketones Ql (U) Trace Abnormal Negative [facility] Comment on above: Order Comment: Speci men Type: URINE SPECIMENOrdering Facility: [facility] Address: [address] [place] [address] Performed By: #### 2 4356-8 ####[facility] LABORATORYCLIA [id number] [address] [place] [address] [place] Leukocyte esterase Test strip Ql (U) Negative Normal Negative [facility] Comment on above: Order Comment: Speci men Type: URINE SPECIMENOrdering Facility: [facility] Address: [address] [place] [address] Performed By: #### 2 4356-8 ####[facility] LABORATORYCLIA [id number] [address] [place], [place] [address] [place] Nitrite Ql (U) Negative Normal Negative [facility] Comment on above: Order Comment: Speci men Type: URINE SPECIMENOrdering Facility: [facility] Address: [address] [place] [address] Performed By: #### 2 4356-8 ####[facility] LABORATORYCLIA [id number] [address] [place] [address] [place] pH (U) 6.5 [pH] Normal 5.0-8.0 [facility] Comment on above: Order Comment: Speci men Type: URINE SPECIMENOrdering Facility: [facility] Address: [address] [place] [address] Performed By: #### 2 4356-8 ####[facility] LABORATORYCLIA [id number] [place] [address] [place] Protein (U) [Mass/Vol] Negative Normal Negative [facility] Comment on above: Order Comment: Speci men Type: URINE SPECIMENOrdering Facility: [facility] Address: [address] [place] [address] Performed By: #### 2 4356-8 ####[facility] LABORATORYCLIA [id number] [place] [id number] [place] RBC LM.HPF (Urine sed) [#/Area] 0-3 /HPF Normal 0-3 /HPF [facility] Comment on above: Order Comment: Speci men Type: URINE SPECIMENOrdering Facility: [facility] Address: [address] [place] [address] Performed By: #### 2 4356-8 ####[facility] LABORATORYCLIA [id number] [address] [place] [address] [place] Specific gravity (U) [Rel density] 1.020 Normal 1.005-1.030 [facility] Comment on above: Order Comment: Speci men Type: URINE SPECIMENOrdering Facility: [facility] Address: [address] [place] [address] Performed By: #### 2 4356-8 ####[facility] LABORATORYCLIA [id number] [place] [id number] [place] Urobilinogen Ql (U) 1.0 EU/dL Normal 0.2-1.0 EU/dL [facility] Comment on above: Order Comment: Speci men Type: URINE SPECIMENOrdering Facility: [facility] Address: [address] [place] [address] Performed By: #### 2 4356-8 ####[facility] LABORATORYCLIA [id number] [place] [address] [place] WBC LM.HPF (Urine sed) [#/Area] 0-5 /HPF Normal 0-5 /HPF [facility] Comment on above: Order Comment: Speci men Type: URINE SPECIMENOrdering Facility: [facility] Address: [address] [place] [address] Performed By: #### 2 4356-8 ####[facility] LABORATORYCLIA [id number] [place] [id number] [place] Basic Metabolic Profon 05-30 Anion gap [Moles/Vol] 12 mmol/L Normal 9-17 [facility] Comment on above: Performed By: #### B MP, LIP, LIVP, CDP, HCG #### [facility] [address] [place] [address] Link Fabric Machine Operator: Jennifer Freire MD BUN/CRE Ratio 7 Low 9-20 [facility] Comment on above: Performed By: #### B MP, LIP, LIVP, CDP, HCG #### [facility] [address] [place] [address] Link Fabric Machine Operator: Jennifer Freire MD Calcium [Mass/Vol] 9.8 mg/dL Normal 8.6-10.4 [facility] Comment on above: Performed By: #### B MP, LIP, LIVP, CDP, HCG #### [facility] [address] [place], [place] [id number] Link Fabric Machine Operator: Jennifer Freire MD Chloride [Moles/Vol] 99 mmol/L Normal 98-107 [facility] Comment on above: Performed By: #### B MP, LIP, LIVP, CDP, HCG #### [facility] [address] [place], [place] [id number] Link [employer] Machine Operator: Jennifer Freire MD CO2 [Moles/Vol] 24 mmol/L Normal 20-31 [facility] Comment on above: Performed By: #### B MP, LIP, LIVP, CDP, HCG #### [facility] [address] [place] [address] [employer] Operator: Jennifer Freire MD Creatinine [Mass/Vol] 0.7 mg/dL Normal 0.5-0.9 [facility] Comment on above: Performed By: #### B MP, LIP, LIVP, CDP, HCG #### [facility] [address] [place] [address] [employer] Operator: Jennifer Freire MD GFR/1.73 sq M.predicted among non-blacks MDRD (S/P/Bld) [Vol rate/Area] mL/min/{1.73_m2} Normal >60 [facility] Comment on above: Result Comment: These results [...] B MP, LIP, LIVP, CDP, HCG #### [facility] [address] [place] [address] [employer] Operator: Jennifer Freire MD Glucose [Mass/Vol] 97 mg/dL Normal 70-99 [facility] Comment on above: Performed By: #### B MP, LIP, LIVP, CDP, HCG #### [facility] [address] [place] [address] [employer] Operator: Jennifer Freire MD Potassium [Moles/Vol] 3.9 mmol/L Normal 3.7-5.3 [facility] Comment on above: Performed By: #### B MP, LIP, LIVP, CDP, HCG #### [facility] [address] [place] [address] [employer] Operator: Jennifer Freire MD Sodium [Moles/Vol] 135 mmol/L Normal 135-144 [facility] Comment on above: Performed By: #### B MP, LIP, LIVP, CDP, HCG #### [facility] [address] [place] [address] [employer] Operator: Jennifer Freire MD Urea nitrogen [Mass/Vol] 5 mg/dL Low 6-20 [facility] Comment on above: Performed By: #### B MP, LIP, LIVP, CDP, HCG #### [facility] [address] [place] [address] [employer] Operator: Jennifer Freire MD CBC with Diffon 05-30-2023 Abs. Basophil 0.02 k/uL Normal 0.00-0.20 [facility] Comment on above: Performed By: #### B MP, LIP, LIVP, CDP, HCG #### [facility] [address] [place] [address] [employer] Operator: Jennifer Freire MD Abs.Imm.Granulocyte 0.00 k/uL Normal 0.00-0.30 [facility] Comment on above: Performed By: #### B MP, LIP, LIVP, CDP, HCG #### [facility] [address] [place] [address] [employer] Operator: Jennifer Freire MD Abs.Neutrophil (Seg) 2.21 k/uL Low 2.5-7.0 [facility] Comment on above: Performed By: #### B MP, LIP, LIVP, CDP, HCG #### [facility] [address] [place] [address] [employer] Operator: Jennifer Freire MD Basophils/100 WBC (Bld) 0 % Normal 0-2 [facility] Comment on above: Performed By: #### B MP, LIP, LIVP, CDP, HCG #### [facility] [address] [place] [address] [employer] Operator: Jennifer Freire MD Eosinophils (Bld) [#/Vol] 0.05 10*3/uL Normal 0.00-0.40 [facility] Comment on above: Performed By: #### B MP, LIP, LIVP, CDP, HCG #### [facility] [address] [place] [address] [employer] Operator: Jennifer Freire MD Eosinophils/100 WBC (Bld) 1 % Normal 0-5 [facility] Comment on above: Performed By: #### B MP, LIP, LIVP, CDP, HCG #### [facility] [address] [place] [address] [employer] Operator: Jennifer Freire MD Erythrocyte distribution width (RBC) [Ratio] 16.5 % High 12.1-15.2 [facility] Comment on above: Performed By: #### B MP, LIP, LIVP, CDP, HCG #### [facility] [address] [place] [address] [employer] Operator: Jennifer Freire MD Hematocrit (Bld) [Volume fraction] 37.2 % Normal 36.0-46.0 [facility] Comment on above: Performed By: #### B MP, LIP, LIVP, CDP, HCG #### [facility] [address] [place] [address] [employer] Operator: Jennifer Freire MD Hemoglobin (Bld) [Mass/Vol] 11.7 g/dL Low 12.0-16.0 [facility] Comment on above: Performed By: #### B MP, LIP, LIVP, CDP, HCG #### [facility] [address] [place] [address] [employer] Operator: Jennifer Freire MD Immature granulocytes/100 WBC (Bld) 0 % Normal 0-5 [facility] Comment on above: Performed By: #### B MP, LIP, LIVP, CDP, HCG #### [facility] [address] [place] [address] [employer] Operator: Jennifer Freire MD Lymphocytes (Bld) [#/Vol] 2.45 10*3/uL Normal 1.00-4.80 [facility] Comment on above: Performed By: #### B MP, LIP, LIVP, CDP, HCG #### [facility] [address] [place] [address] [employer] Operator: Jennifer Freire MD Lymphocytes/100 WBC (Bld) 48 % High 15-40 [facility] Comment on above: Performed By: #### B MP, LIP, LIVP, CDP, HCG #### [facility] [address] [place] [address] [employer] Operator: Jennifer Freire MD MCH (RBC) [Entitic mass] 24.2 pg Low 26.0-34.0 [facility] Comment on above: Performed By: #### B MP, LIP, LIVP, CDP, HCG #### [facility] [address] [place] [id number] [employer] Operator: Jennifer Freire MD MCHC (RBC) [Mass/Vol] 31.5 g/dL Normal 31.0-37.0 [facility] Comment on above: Performed By: #### B MP, LIP, LIVP, CDP, HCG #### [facility] [address] [place] [address] [employer] Operator: Jennifer Freire MD MCV (RBC) [Entitic vol] 76.9 fL Low 80.0-100.[address] [facility] Comment on above: Performed By: #### B MP, LIP, LIVP, CDP, HCG #### [facility] [address] [place], [place] [id number] [employer] Operator: Jennifer Freire MD Monocytes (Bld) [#/Vol] 0.37 10*3/uL Normal 0.00-1.00 [facility] Comment on above: Performed By: #### B MP, LIP, LIVP, CDP, HCG #### [facility] [address] [place], [place] [id number] [employer] Operator: Jennifer Freire MD Monocytes/100 WBC (Bld) 7 % Normal 4-[address] [facility] Comment on above: Performed By: #### B MP, LIP, LIVP, CDP, HCG #### [facility] [address] [place] [address] [employer] Operator: Jennifer Freire MD Neutrophil (Seg) 43 % Low 47-75 [facility] Comment on above: Performed By: #### B MP, LIP, LIVP, CDP, HCG #### [facility] [address] [place], [place] [id number] [employer] Operator: Jennifer Freire MD Platelet mean volume (Bld) [Entitic vol] 8.7 fL Normal 6.0-12.0 [facility] Comment on above: Performed By: #### B MP, LIP, LIVP, CDP, HCG #### [facility] [address] [place], [place] [id number] (158) [employer] Operator: Jennifer Freire MD Platelets (Bld) [#/Vol] 512 10*3/uL High 140-450 [facility] Comment on above: Performed By: #### B MP, LIP, LIVP, CDP, HCG #### [facility] [address] [place], [place] [address] [employer] Operator: Jennifer Freire MD RBC (Bld) [#/Vol] 4.84 10*6/uL Normal 4.00-5.20 [facility] Comment on above: Performed By: #### B MP, LIP, LIVP, CDP, HCG #### [facility] [address] [place], [place] [address] [employer] Operator: Jennifer Freire MD WBC (Bld) [#/Vol] 5.1 10*3/uL Normal 3.5-11.0 [facility] Comment on above: Performed By: #### B MP, LIP, LIVP, CDP, HCG #### [facility] [address] [place], [place] [id number] [employer] Operator: Jennifer Freire MD CT ABDOMEN PELVIS [...] Marilyn Narvaez MD 05/30/23 Final result Normal [facility] HCG Screen, Bloodon 05-30-20 23 HCG Screen, Blood Negative Normal NEG [facility] Comment on above: Result Comment: Spec imens with hCG levels near the threshold of the test (25 mIU/mL) may give a negative or indeterminate result. In such cases, another test should be performed with a new specimen in 48-72 hours. If early is suspected clinically in this setting, correlation with quantitative serum b-hCG level is suggested. [facility] has confirmed the use of plasma for this test. This has not been cleared or approved by the U.S. Food and Drug Administration. The FDA has determined that such clearance is not necessary. Performed By: #### B MP, LIP, LIVP, CDP, HCG #### [facility] [address] [place], [place] [id number] [employer] Operator: Jennifer Frerie MD Lipaseon 05-30-2023 Lipase [Catalytic activity/Vol] 28 U/L Normal 13-60 [facility] Comment on above: Performed By: #### B MP, LIP, LIVP, CDP, HCG #### [facility] [address] [place], [place] [id number] [employer] Operator: Jennifer Freire MD Liver Profileon 05-30-2023 Albumin [Mass/Vol] 4.3 g/dL Normal 3.5-5.2 [facility] Comment on above: Performed By: #### B MP, LIP, LIVP, CDP, HCG #### [facility] [address] [place], [place] [address] [employer] Operator: Jennifer Freire MD Alkaline Phos 86 U/L Normal 35-104 [facility] Comment on above: Performed By: #### B MP, LIP, LIVP, CDP, HCG #### [facility] [address] [place], [place] [id number] [employer] Operator: Jennifer Freire MD ALT [Catalytic activity/Vol] 14 U/L Normal 5-33 [facility] Comment on above: Performed By: #### B MP, LIP, LIVP, CDP, HCG #### [facility] [address] [place] [address] [employer] Operator: Jennifer Freire MD AST [Catalytic activity/Vol] 18 U/L Normal <32 [facility] Comment on above: Performed By: #### B MP, LIP, LIVP, CDP, HCG #### [facility] [address] [place] [address] [employer] Operator: Jennifer Freire MD Bilirubin [Mass/Vol] 0.5 mg/dL Normal 0.3-1.2 [facility] Comment on above: Performed By: #### B MP, LIP, LIVP, CDP, HCG #### [facility] [address] [place] [address] [employer] Operator: Jennifer Freire MD Bilirubin, Indirect Can not be calculated Normal 0.0-1.0 [facility] Comment on above: Performed By: #### B MP, LIP, LIVP, CDP, HCG #### [facility] [address] [place] [address] [employer] Operator: Jennifer Freire MD Bilirubin.indirect [Mass/Vol] mg/dL Normal <0.3 [facility] Comment on above: Performed By: #### B MP, LIP, LIVP, CDP, HCG #### [facility] [address] [place] [address] [employer] Operator: Jennifer Freire MD Protein [Mass/Vol] 7.9 g/dL Normal 6.4-8.3 [facility] Comment on above: Performed By: #### B MP, LIP, LIVP, CDP, HCG #### [facility] [address] [place] [id number] [employer] Operator: Jennifer Freire MD Urinalysis, Routineon 2022 Bilirubin, SemiQt,Ur Negative Normal NEG [facility] Comment on above: Performed By: #### U A #### [facility] [address] [place] [id number] [employer] Operator: Jennifer Freire MD Blood, Urine Negative Normal NEG [facility] Comment on above: Performed By: #### U A #### [facility] [address] [place], [place] [id number] [employer] Operator: Jennifer Freire MD Clarity (U) Clear Normal CLEAR [facility] Comment on above: Performed By: #### U A #### [facility] [address] [place] [address] [employer] Operator: Jennifer Freire MD Color (U) Yellow Normal YEL [facility] Comment on above: Performed By: #### U A #### [facility] [address] [place] [address] [employer] Operator: Jennifer Freire MD Comment Normal [facility] Comment on above: Performed By: #### U A #### [facility] [address] [place], [place] [address] [employer] Operator: Jennifer Freire MD Glucose Ql (U) Negative Normal NEG [facility] Comment on above: Performed By: #### U A #### [facility] [address] [place], [place] [address] [employer] Operator: Jennifer Freire MD Ketones Ql (U) Negative Normal NEG [facility] Comment on above: Performed By: #### U A #### [facility] [address] [place], [place] [address] [employer] Operator: Jennifer Freire MD Leukocyte esterase Test strip Ql (U) Negative Normal NEG [facility] Comment on above: Performed By: #### U A #### [facility] [address] [place] [address] [employer] Operator: Jennifer Freire MD Nitrite,Ur Negative Normal NEG [facility] Comment on above: Performed By: #### U A #### [facility] [address] [place] [address] [employer] Operator: Jennifer Freire MD PH,Ur 8.0 Normal 5.0-8.0 [facility] Comment on above: Performed By: #### U A #### [facility] [address] [place], [place] [address] [employer] Operator: Jennifer Freire MD Protein Ql (U) Negative Normal NEG [facility] Comment on above: Performed By: #### U A #### [facility] [address] [place], [place] [id number] [employer] Operator: Jennifer Freire MD Spec. [place],Ur 1.010 Normal 1.005-1.030 [facility] Comment on above: Performed By: #### U A #### [facility] [address] [place], [place] [address] [employer] Operator: Jennifer Freire MD Urobilinogen,Ur Normal Normal 0.0-1.0 [facility] Comment on above: Performed By: #### U A #### [facility] [address] [place], [place] [id number] [employer] Machine Operator: Jennifer Freire MD Discharge Instructionson Discharge Instructions [id number] 120 [id number] #[id number] Normal [facility] ED Clinical Summaryon 2022 ED Clinical Summary [address] [address] ED Clinical Summary Person Information Name: LIVIA NOYOLA/New_Kishore Age: 38 Years : 1985 Sex: Female Language: Belarusian PCP: BETTIE MIRELES Marital Status: Visit Id: [...] 05/18/2023 00:57:00 ADDRESS: [address] [place] [id number] PHYS DOC NOTES: MEDICAL INFORMATION: Prescriptions Given: Medications to Continue with No Changes Other Medications alprazolam (alprazolam 0.25 mg Tab) budesonide-formotero l (Symbicort 80/4.5 inhalation aerosol with adapter) citalopram (citalopram 20 mg Tab) By Mouth every day. 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 We discussed [...] Lele In 3 days 05/21/[address] [place] [address]- [employer] (1) Additional Instructions: Patient Education Ovarian Cyst [...] (05/17/23 21:12 (more content not included)... Normal [facility] Comment on above: Result Comment: Elec [...] Follow these instructions at home: ? Take fcey-bkd-dcsgwiw and prescription medicines only as told by [...] provider. Document Revised: 11/06/2020 Document Reviewed: 11/06/2020 [employer] Patient Education ? 2022 Lumiy. Normal [facility] ED Patient Summaryon 023 ED Patient Summary [address] [address] Patient Discharge Instructions Person Information Name: LIVIA NOYOLA Age: 38 Years Arrival Date: 05/17/2023 20:20:39 Discharge Diagnosis: Bilateral ovarian cysts; Unspecified ovarian cyst, left side Primary Care Physician: [facility], GENERIC Provider Information Primary Provider: Ritesh Heath DO Advanced Mailing Clerk:None The exam and treatment you received in the Emergency Department were for an urgent problem and are not intended as complete care. It is important that you follow up with a doctor, nurse practitioner, or physician?s store administrative assistant for ongoing care. If your symptoms [...] Follow-up Instructions: With: Address: When: Ino [address], [facility] [address], [place] [address] Business (1) In 3 days 05/21/2023 In the event that this physician does not participate in your insurance network, please consult with your insurance company to find a nearby participating provider. Patient Education Materials: Ovarian Cyst A MESSAGE TO ALL PATIENTS REGARDING OPIOIDS PRESCRIPTION OPIOIDS: WHAT YOU NEED TO KNOW Prescription opioids can be used to help relieve vwkrvepk-rc-lqisck pain and are often prescribed following a [...] be struggling with addiction, tell your health respiratory care program director and ask for guidance or call SAM[employer]?S National Helpline at 1-763-684-WXET. (more content not included)... Normal [facility] Pelvis Non-OB Completeon 05-18-2023 Pelvis Non-OB Complete Exam Date/Time: 05/18/2023 00:13 [...] CARMELINA Technical Comments Transabdominal Ultrasound Performed Normal [facility] Auto Diffon 05-17-2023 Basophils/100 WBC (Bld) 0.4 % Normal 0.0-2.0 [facility] Comment on above: Order Comment: Order Added by Lis Expert. Performed By: #### 1 [id number], 7211473, 5761769, 0752496, 0577857, 62514940, 6911035 ####[facility] [place] [address] Basophils/Leukocytes Auto (Bld) [Pure # fraction] 0.0 E9/L Normal 0.0-0.2 [facility] Comment on above: Order Comment: Order Added by Discern Expert. Performed By: #### 1 8410956, 5411148, 9383840, 8040687, 6782598, 81922547, 6348164 ####[address] [address] Eosinophils/100 WBC (Bld) 0.2 % Normal 0.0-8.0 [facility] Comment on above: Order Comment: Order Added by Discern Expert. Performed By: #### 1 6866106, 7641878, 0682025, 7299849, 2229408, 69673467, 3776111 ####[address] [address] Eosinophils/Leukocytes Auto (Bld) [Pure # fraction] 0.0 E9/L Normal 0.0-0.5 [facility] Comment on above: Order Comment: Order Added by Discern Expert. Performed By: #### 1 9488266, 5037868, 9442903, 6383191, 5276647, 56914672, 8493026 ####[address] [address] Lymphocytes/100 WBC (Bld) 33.4 % Normal 14.0-50.0 [facility] Comment on above: Order Comment: Order Added by Discern Expert. Performed By: #### 1 5053275, 2446720, 4149005, 5956079, 7930774, 52001758, 4446506 ####[address] [address] Lymphocytes/Leukocytes Auto (Bld) [Pure # fraction] 2.8 E9/L Normal 1.0-4.0 [facility] Comment on above: Order Comment: Order Added by Discern Expert. Performed By: #### 1 9926172, 6098821, 0719284, 4688049, 6274047, 61246881, 9395910 ####[address] [address] Monocytes/100 WBC (Bld) 9.1 % Normal 4.0-14.0 [facility] Comment on above: Order Comment: Order Added by Discern Expert. Performed By: #### 1 0512387, 1100143, 2235389, 3145885, 3786063, 61053545, 7705049 ####[place] [address] [place] [address] Monocytes/Leukocytes Auto (Bld) [Pure # fraction] 0.8 E9/L Normal 0.2-1.0 [facility] Comment on above: Order Comment: Order Added by Discern Expert. Performed By: #### 1 4288834, 5144709, 7184632, 4277724, 3497925, 13461062, 6507323 ####[address] [place] [address] Neutrophils/100 WBC (Bld) 56.9 % Normal 36.0-75.0 [facility] Comment on above: Order Comment: Order Added by Discern Expert. Performed By: #### 1 9532656, 6927695, 5806745, 4869113, 1853305, 93122812, 5524315 ####[address] [place] [address] Neutrophils/Leukocytes Auto (Bld) [Pure # fraction] 4.8 E9/L Normal 2.0-7.5 [facility] Comment on above: Order Comment: Order Added by Discern Expert. Performed By: #### 1 2953388, 9343667, 2907003, 9057716, 8556551, 36634418, 8313054 ####[address] [place] [address] BMPon 05-17-2023 Creatinine [Mass/Vol] 0.8 mg/dL Normal 0.5-1.3 [facility] Comment on above: Performed By: #### 1 0631291, 1866673, 5449473, 3317351, 1002591, 89453634, 7442280 ####[address] [address] [place] [address] Urea nitrogen [Mass/Vol] 5 mg/dL Normal 5-21 [facility] Comment on above: Performed By: #### 1 3625235, 3974270, 6556209, 2117917, 4582374, 18806081, 4534814 ####[facility] [address] [place] [address] Urea nitrogen/Creatinine [Mass ratio] 6 No Units Low 10-20 [facility] Comment on above: Performed By: #### 1 5155126, 4076313, 7620442, 3485215, 5969584, 07020401, 6190168 ####[facility] [address] [place] [address] Anion gap [Moles/Vol] 11 mmol/L Normal 6-16 [facility] Comment on above: Performed By: #### 1 3692679, 1324737, 9382688, 8505971, 6662540, 11046873, 0743836 ####[facility] [address] [place] [address] Calcium [Mass/Vol] 9.3 mg/dL Normal 8.9-11.1 [facility] Comment on above: Performed By: #### 1 5081833, 7187754, 7991588, 1020221, 4274687, 07638980, 0403600 ####[facility] [address] [facility] [place] [facility] [place] [address] Chloride [Moles/Vol] 109 mmol/L Normal 101-111 [facility] Comment on above: Performed By: #### 1 3479895, 6887217, 8868605, 9020650, 9060942, 90082865, 1097270 ####[facility] [address] [place] [address] CO2 [Moles/Vol] 23 mmol/L Normal 21-31 [facility] Comment on above: Performed By: #### 1 8298579, 3416895, 1621054, 0452757, 6439835, 72972880, 7169342 ####[facility] [address] [place] [address] Glucose [Mass/Vol] 104 mg/dL Normal 55-199 [facility] Comment on above: Result Comment: If t his glucose result represents a fasting glucose, interpretation should refer to the following reference range: 55-99 mg/dL Performed By: #### 1 1399016, 3926926, 6124314, 8454370, 5537322, 17073358, 6122151 ####[facility] [address] [place] [address] Potassium [Moles/Vol] 4.1 mmol/L Normal 3.5-5.3 [facility] Comment on above: Performed By: #### 1 8867705, 5318328, 9123673, 6140793, 0615725, 85885575, 6258632 ####[facility] [address] [place] [address] Sodium [Moles/Vol] 139 mmol/L Normal 135-145 [facility] Comment on above: Performed By: #### 1 8773138, 5193806, 9195307, 3874502, 2993578, 65749504, 1484832 ####[facility] [address] [place] [address] CBC w/ Auto Diffon 3 Erythrocyte distribution width (RBC) [Ratio] 18.7 % High 10.9-14.2 [facility] Comment on above: Performed By: #### 1 2202006, 5309378, 9391457, 4351843, 5614227, 13700914, 7323057 #### [facility] [address] [place] [address] Hematocrit (Bld) [Volume fraction] 37.4 % Normal 34.0-46.0 [facility] Comment on above: Performed By: #### 1 2026745, 0476274, 1785077, 9186039, 2409520, 54858648, 0910598 #### [facility] [address] [place] [address] Hemoglobin (Bld) [Mass/Vol] 11.7 g/dL Low 12.0-16.0 [facility] Comment on above: Performed By: #### 1 9977364, 7838449, 1942150, 7973311, 9586623, 64606733, 5341012 #### [facility] [address] [place] [address] MCH (RBC) [Entitic mass] 24.4 pg Low 27.0-34.0 [facility] Comment on above: Performed By: #### 1 0794794, 8526650, 2441977, 1580357, 7165906, 48748791, 6967755 #### [facility] [address] [place] [address] MCHC (RBC) [Mass/Vol] 31.2 g/dL Low 31.4-36.0 [facility] Comment on above: Performed By: #### 1 5760060, 1707451, 3558366, 2913888, 0637675, 11516035, 3955012 #### [facility] [address] [place] [address] MCV (RBC) [Entitic vol] 78.2 fL Low 80.0-100.0 [facility] Comment on above: Performed By: #### 1 8089663, 9582839, 4148668, 7320458, 1995927, 98619655, 8109690 #### [facility] [facility] [address] [place] [address] Platelet mean volume (Bld) [Entitic vol] 7.8 fL Normal 6.4-10.8 [facility] Comment on above: Performed By: #### 1 [id number], 7404265, 3972357, 7968743, 2055367, 14017154, 3280503 #### [facility] [address] [place] [address] 21495 Platelets (Bld) [#/Vol] 469.0 E9/L Normal 150.0-500.0 [facility] Comment on above: Performed By: #### 1 2664776, 8027896, 8360762, 2298618, 6567648, 72772049, 8466095 #### [facility] [address] [place] [address] RBC (Bld) [#/Vol] 4.8 E12/L Normal 4.3-5.9 [facility] Comment on above: Performed By: #### 1 5063662, 1709489, 3098377, 9342148, 9165995, 39879732, 1281745 #### [facility] [address] [place] [address] WBC corrected for nucl RBC Auto (Bld) [#/Vol] 8.5 E9/L Normal 4.0-11.0 [facility] Comment on above: Performed By: #### 1 3728356, 4412971, 1340948, 6866583, 6149152, 84132223, 2826667 #### [facility] [address] [place] [address] Consent for Treatmenton Consent for Treatment [id number] #[id number] Normal [facility] ED Note-Nursingon 05-17-2023 ED Note-Nursing Pt being transported to [place] at this time Normal [facility] Hep Func Panelon 05-17-2023 Albumin [Mass/Vol] 4.2 g/dL Normal 3.3-5.0 [facility] Comment on above: Performed By: #### 1 7792498, 0446143, 1146733, 1815813, 1888874, 94408944, 7158392 ####[facility] [address] [place] [address] Albumin/Globulin (S) [Mass conc ratio] 1.2 Normal 1.1-2.2 [facility] Comment on above: Performed By: #### 1 0346069, 8895464, 0857607, 0349072, 4770491, 82254832, 7542704 ####[facility] [address] [place] [address] ALP [Catalytic activity/Vol] 58 Int._Unit/L Normal 21-98 [facility] Comment on above: Performed By: #### 1 8874716, 2279466, 3419404, 3290337, 5279770, 17035377, 9753540 ####[facility] [address] [place] [address] ALT No additional P-5'-P [Catalytic activity/Vol] 14 Int._Unit/L Normal 6-46 [facility] Comment on above: Performed By: #### 1 1182849, 6947260, 6335649, 0305193, 2398098, 86623545, 9540280 ####[facility] [address] [place] [address] AST [Catalytic activity/Vol] 21 Int._Unit/L Normal 5-43 [facility] Comment on above: Performed By: #### 1 8513828, 5077073, 1772235, 2717576, 3127916, 61234838, 6768513 ####[facility] [address] [place] [address] Bilirubin [Mass/Vol] 0.6 mg/dL Normal 0.0-1.1 [facility] Comment on above: Performed By: #### 1 6110164, 3710949, 8037694, 2906141, 0406984, 26370043, 5053326 ####[place] [id number] Bilirubin.direct [Mass/Vol] 0.1 mg/dL Normal 0.1-0.4 [facility] Comment on above: Performed By: #### 1 8930509, 7189415, 3736761, 7553221, 8020489, 80107891, 9935197 ####[place] [address] [place] [address] Bilirubin.indirect [Mass or moles/Vol] 0.5 mg/dL Normal 0.1-0.9 [facility] Comment on above: Performed By: #### 1 3171436, 6372935, 2786548, 4748373, 0560002, 50241759, 4523824 ####[place] [address] [place] [address] Globulin (S) [Mass/Vol] 3.6 g/dL Normal 1.4-4.0 [facility] Comment on above: Performed By: #### 1 7407035, 3662323, 4732748, 2148906, 8669871, 89497744, 7830213 ####[facility] [address] [place] [address] Protein [Mass/Vol] 7.8 g/dL Normal 6.0-7.8 [facility] Comment on above: Performed By: #### 1 4784379, 1928048, 1173643, 6497336, 5359357, 03019156, 1161599 ####[facility] [address] [place] [address] Lipase Levelon 05-17-2023 Lipase [Catalytic activity/Vol] 57 U/L Normal 13-58 [facility] Comment on above: Performed By: #### 1 3357207, 9701383, 8667937, 3433834, 2584751, 53236415, 5042548 #### [facility] [address] [place] [address] Morphon 05-17-2023 Anisocytosis Ql (Bld) Present Normal [facility] Comment on above: Order Comment: Order Added by Discern Expert. Performed By: #### 1 0340308, 8045591, 9442694, 9660286, 3647446, 86735681, 1595103 #### [facility] [address] [place] [address] Hypochromia Auto Ql (Bld) Present Normal [facility] Comment on above: Order Comment: Order Added by Discern Expert. Performed By: #### 1 5088794, 3367913, 1799411, 5606445, 9573267, 45212267, 8953630 #### [facility] [address] [place] [address] Microcytes Ql (Bld) Present Normal [facility] Comment on above: Order Comment: Order Added by Discern Expert. Performed By: #### 1 0284529, 2565820, 0788179, 8174365, 1863257, 56977746, 6673822 #### [facility] [address] [place] [address] Morphology Edson (Bld) [Interp] See Morphology Normal [facility] Comment on above: Order Comment: Order Added by Discern Expert. Performed By: #### 1 9718612, 4854689, 7487640, 6398887, 8090791, 24235362, 0788612 #### [facility] [address] [place] [address] Ovalocytes LM Ql (Bld) Present Normal [facility] Comment on above: Order Comment: Order Added by Discern Expert. Performed By: #### 1 2036847, 2091992, 4790837, 6269995, 6913836, 56035194, 8913056 #### [facility] [address] [place] [address] U BetaHcg Qualon 05-17-2023 HCG.beta subunit (U) [Moles/Vol] Negative Normal [facility] Comment on above: Performed By: #### 1 2242666, 28858714 ####[facility] [address] [place] [address] UA With Cult Reflexon 2022 Bacteria LM Ql (Urine sed) TRACE Normal Trace [facility] Comment on above: Performed By: #### 1 7338189, 22216970 ####[place] [address] [place] [address] Bilirubin Ql (U) Negative Normal Negative [facility] Comment on above: Performed By: #### 1 0605962, 89204720 ####[place] [address] [place] [address] Clarity (U) CLEAR Normal Clear [facility] Comment on above: Performed By: #### 1 5982554, 15386108 ####[facility] [address] [place] [address] Color (U) YELLOW Normal Yellow [facility] Comment on above: Performed By: #### 1 0429722, 55674114 ####[address] [address] Epithelial cells.squamous LM.HPF (Urine sed) [#/Area] 3-4 Normal 0-2 [facility] Comment on above: Performed By: #### 1 5416585, 86483384 ####[facility] [address] [place] [address] Glucose Test strip (U) [Mass/Vol] Negative Normal Negative [facility] Comment on above: Performed By: #### 1 1873145, 40206645 ####[facility] [address] [place] [address] Hemoglobin Ql (U) Negative Normal Negative [facility] Comment on above: Performed By: #### 1 9260979, 36244976 ####[facility] [address] [place] [address] Ketones (U) [Mass/Vol] TRACE Invalid Interpretation Code Negative [facility] Comment on above: Performed By: #### 1 6958278, 46730246 ####[facility] [address] [place] [address] [place].plasma/[place]. RBC (Bld) [Mass ratio] 0-3 Normal 0-3 [facility] Comment on above: Performed By: #### 1 3930248, 15666724 ####[facility] [address] [place] [address] Mucus Ql (Urine sed) 2+ Normal [facility] Comment on above: Performed By: #### 1 7037012, 71637924 ####[facility] [address] [place] [address] Nitrite Ql (U) Negative Normal Negative [facility] Comment on above: Performed By: #### 1 5003231, 73772252 ####[facility] [address] [facility] [place] [address] pH (U) 6.0 [pH] Invalid Interpretation Code 5.0-9.0 [facility] Comment on above: Performed By: #### 1 4895534, 23146172 ####[facility] [address] [facility] [place] [address] Protein (U) [Mass/Vol] Negative Normal Negative [facility] Comment on above: Performed By: #### 1 7937987, 07601650 ####[facility] [address] [place] [address] Specific gravity (U) [Rel density] >=1.030 Invalid Interpretation Code 1.005-1.030 [facility] Comment on above: Performed By: #### 1 2877715, 54197843 ####[facility] [address] [place] [address] Type of Urine collection method Clean Catch Normal [facility] Comment on above: Performed By: #### 1 1621292, 99948055 ####[address] [address] Urobilinogen Qn (U) 2.0 {Ivone'U}/dL Abnormal 0.0-1.0 [facility] Comment on above: Performed By: #### 1 1012275, 28240116 ####[address] [address] WBC Auto Ql (U) Negative Normal Negative [facility] Comment on above: Performed By: #### 1 1754996, 68195006 ####[address] [address] WBC LM.HPF (Urine sed) [#/Area] 0-5 Normal 0-5 [facility] Comment on above: Performed By: #### 1 3873724, 29826771 ####[address] [address] eGFRon 05-17-2023 GFR/1.73 sq M.predicted among non-blacks MDRD (S/P/Bld) [Vol rate/Area] 98 mL/min/1.73 m2 Normal >=59 [facility] Comment on above: Order Comment: Order added by Discern Expert. Result Comment: Vocational Rehabilitation Consultant franklin kidney disease could be indicated at eGFR's of less than 60 mL/min/1.73m2. Kidney failure is indicated at less than 15 mL/min/1.73m2. Performed By: #### 1 1725392, 2282100, 1598714, 0604928, 9180772, 04491428, 9103945 ####[facility] [address] [place] [address] Alanine aminotransferase [En zymatic activity/volume] in Serum or PlasmaOrdered By: Elier Jackson on 04-30-2023 ALT [Catalytic activity/Vol] 15 U/L Normal 7-52 [facility] Comment on above: Performed By: #### H CGQNT #### [facility] [address] [place] [address] [place] Albumin [Mass/volume] in Ser um or Plasma by Bromocresol green (BCG) dye binding methoOrdered By: Elier Jackson on 04-30-2023 Albumin BCG dye [Mass/Vol] 4.3 g/dL 3.5-5.7 [facility] Alkaline phosphatase [Enzyma tic activity/volume] in Serum or PlasmaOrdered By: Elier Jackson on 04-30-2023 ALP [Catalytic activity/Vol] 68 U/L Normal 34-104 [facility] Comment on above: Performed By: #### H CGQNT #### [facility] [address] [place] [address] Aspartate aminotransferase [ Enzymatic activity/volume] in Serum or PlasmaOrdered By: Elier Jackson on 04-30-2023 AST [Catalytic activity/Vol] 17 U/L Normal 13-39 [facility] Comment on above: Performed By: #### H CGQNT #### [facility] [address] [place] [address] Automated basophil %Ordered By: Elier Jackson on 04-30-2023 Basophils/100 WBC (Bld) 1.3 % Normal . [facility] Comment on above: Performed By: #### H CGQNT #### [facility] [address] [place] [address] Automated basophil countOrde red By: Elier Jackson on 04-30-2023 Basophils (Bld) [#/Vol] 0.0 10*3/uL Normal 0.0-0.2 [facility] Comment on above: Result Comment: PERF ORMED BY: [place] [address] PATHOLOGIST RIPRAP MAN FARNAZ ZULETA M.D. Performed By: #### H CGQNT #### [address] Automated blood monocyte cou ntOrdered By: Elier Velásquezjulian on 04-30-2023 Monocytes (Bld) [#/Vol] 0.3 10*3/uL Normal 0.0-0.8 [facility] Comment on above: Performed By: #### H CGQNT #### [address] Automated eosinophil %Ordere d By: Elier Velásquezjulian on 04-30-2023 Eosinophils/100 WBC (Bld) 0.6 % Normal . [facility] Comment on above: Performed By: #### H CGQNT #### [address] Automated eosinophil countOr dered By: Elierjaqui Jackson on 04-30-2023 Eosinophils (Bld) [#/Vol] 0.0 10*3/uL Normal 0.0-0.45 [facility] Comment on above: Performed By: #### H CGQNT #### [address] Automated erythrocytes count in urine sediment (number/area)Ordered By: Elier Manuel on 04-30-2023 RBC Auto (Urine sed) [#/Area] 5-9 [HPF] 0-4 [facility] Automated leukocytes count i n urine sediment (number/area)Ordered By: Elierjaqui Jackson on 04-30-2023 WBC Auto (Urine sed) [#/Area] 0-1 [HPF] 0-4 [facility] Automated monocyte %Ordered By: Elier Jackson on 04-30-2023 Monocytes/100 WBC (Bld) 7.0 % Normal . [facility] Comment on above: Performed By: #### H CGQNT #### [address] Automated neutrophil %Ordere d By: Elier Jackson on 04-30-2023 Neutrophils/100 WBC (Bld) 46.9 % Normal . [facility] Comment on above: Performed By: #### H CGQNT #### [facility] [address] [place] [address] Automated urine color determ inationOrdered By: Elier Jackson on 04-30-2023 Color (U) Yellow Normal Yellow [facility] Comment on above: Order Comment: Name Collection Type:: Clean-Voided Midstream Performed By: #### U HCG, ADDONUAPLUS #### [facility] [address] [place] [address] Basic Metabolic Panelon 04-13 Creatinine Clr Calc Pharmacy 107.67 Normal [facility] Comment on above: Performed By: #### H CGQNT #### [address] GFR/1.73 sq M.predicted MDRD (S/P/Bld) [Vol rate/Area] mL/min/{1.73_m2} Normal [facility] Comment on above: Performed By: #### H CGQNT #### [address] Bilirubin Test strip Ql (U)O rdered By: Elier Jackson on 04-30-2023 Bilirubin Ql (U) Negative Negative [facility] Bilirubin.direct [Mass/volum e] in Serum or PlasmaOrdered By: Elier Jackson on 04-30-2023 Bilirubin.direct [Mass/Vol] 0.10 mg/dL 0.03-0.18 [facility] Bilirubin.total [Mass/volume ] in Serum or PlasmaOrdered By: Elier Jackson on 04-30-2023 Bilirubin [Mass/Vol] 0.4 mg/dL Normal 0.3-1.0 [facility] Comment on above: Performed By: #### H CGQNT #### [facility] [address] [place] [address] Calcium [Mass/volume] in Ser um or PlasmaOrdered By: Elier Jackson on 04-30-2023 Calcium [Mass/Vol] 9.2 mg/dL Normal 8.6-10.3 [facility] Comment on above: Performed By: #### H CGQNT #### [address] Carbon dioxide, total [Moles /volume] in Serum or PlasmaOrdered By: Elierjaqui Jackson on 04-30-2023 CO2 [Moles/Vol] 20.1 mmol/L Low 21.0-31.0 [facility] Comment on above: Performed By: #### H CGQNT #### [address] Chloride [Moles/volume] in S binu or PlasmaOrdered By: Elier Jackson on 04-30-2023 Chloride [Moles/Vol] 109 mmol/L High 98-107 [facility] Comment on above: Performed By: #### H CGQNT #### [address] Complete Blood Count Auto Di ffon 04-30-2023 Mean Corpuscular HGB Conc 34.7 g/dL Normal 32.0-35.0 [facility] Comment on above: Performed By: #### H CGQNT #### [place] [address] [place] Monocytes/100 WBC (Bld) 16.58 % Normal 0.00-20.00 [facility] Comment on above: Performed By: #### H CGQNT #### [address] NRBC% 0.1 /100{WBC} Normal 0-0.5 [facility] Comment on above: Performed By: #### H CGQNT #### [address] Creatinine [Mass/volume] in Serum or PlasmaOrdered By: Elier Jackson on 04-30-2023 Creatinine [Mass/Vol] 0.65 mg/dL Normal 0.60-1.20 [facility] Comment on above: Performed By: #### H CGQNT #### [place] [address] [place] Dipstick and Microscopicon 1 06-30-2022 Appearance (U) Clear Normal Clear [facility] Comment on above: Order Comment: Name Collection Type:: Clean-Voided Midstream Performed By: #### U HCG, ADDONUAPLUS #### [facility] [address] [place] [address] [place] Bacteria,Urine None Seen Normal None Seen [facility] Comment on above: Order Comment: Name Collection Type:: Clean-Voided Midstream Performed By: #### U HCG, ADDONUAPLUS #### [facility] [address] [place] [address] [place] Bilirubin,Urine Negative Normal Negative [facility] Comment on above: Order Comment: Name Collection Type:: Clean-Voided Midstream Performed By: #### U HCG, ADDONUAPLUS #### [facility] [address] [place] [address] Glucose Ql (U) Normal Normal Normal [facility] Comment on above: Order Comment: Name Collection Type:: Clean-Voided Midstream Performed By: #### U HCG, ADDONUAPLUS #### [facility] [address] [place] [address] [place] Hyaline Casts,Urine 0-8 Normal 0-8 [facility] Comment on above: Order Comment: Name Collection Type:: Clean-Voided Midstream Performed By: #### U HCG, ADDONUAPLUS #### [facility] [address] [place] [address] [place] Ketones Ql (U) Negative Normal Negative [facility] Comment on above: Order Comment: Name Collection Type:: Clean-Voided Midstream Performed By: #### U HCG, ADDONUAPLUS #### [facility] [address] [place], [place] [id number] [place] Leukocyte esterase Test strip Ql (U) Negative Normal Negative [facility] Comment on above: Order Comment: Name Collection Type:: Clean-Voided Midstream Performed By: #### U HCG, ADDONUAPLUS #### [facility] [address] [place] [address] [place] Nitrite,Urine Negative Normal Negative [facility] Comment on above: Order Comment: Name Collection Type:: Clean-Voided Midstream Performed By: #### U HCG, ADDONUAPLUS #### [address] Occult Blood,Urine 2+ High Negative [facility] Comment on above: Order Comment: Name Collection Type:: Clean-Voided Midstream Performed By: #### U HCG, ADDONUAPLUS #### [address] Protein,Urine Negative Normal Negative [facility] Comment on above: Order Comment: Name Collection Type:: Clean-Voided Midstream Performed By: #### U HCG, ADDONUAPLUS #### [address] RBC,Urine 5-9 High 0-4 [facility] Comment on above: Order Comment: Name Collection Type:: Clean-Voided Midstream Performed By: #### U HCG, ADDONUAPLUS #### [address] Specificy [place],Urine 1.018 Normal 1.001-1.030 [facility] Comment on above: Order Comment: Name Collection Type:: Clean-Voided Midstream Performed By: #### U HCG, ADDONUAPLUS #### [address] Squamous Epithelial Cell,Urine 0-1 Normal 0-2 [facility] Comment on above: Order Comment: Name Collection Type:: Clean-Voided Midstream Performed By: #### U HCG, ADDONUAPLUS #### [place] [address] [place] Urobilinogen,Urine Normal Normal Normal [facility] Comment on above: Order Comment: Name Collection Type:: Clean-Voided Midstream Performed By: #### U HCG, ADDONUAPLUS #### [place] [address] [place] WBC LM.HPF (Urine sed) [#/Area] 0 /[HPF] Normal 0-4 [facility] Comment on above: Order Comment: Name Collection Type:: Clean-Voided Midstream Performed By: #### U HCG, ADDONUAPLUS #### [address] Erythrocyte distribution wid th [Ratio] by Automated countOrdered By: Elier Jackson on 04-30-2023 Erythrocyte distribution width (RBC) [Ratio] 16.8 % High 11.9-15.3 [facility] Comment on above: Performed By: #### H CGQNT #### [facility] [address] Erythrocytes [#/volume] in B lood by Automated countOrdered By: Elier Jackson on 04-30-2023 RBC (Bld) [#/Vol] 3.68 10*6/uL Normal 3.60-5.00 [facility] Comment on above: Performed By: #### H CGQNT #### [address] Glucose [Mass/volume] in Ser um or PlasmaOrdered By: Elier Jackson on 04-30-2023 Glucose [Mass/Vol] 100 mg/dL Normal 70-100 [facility] Comment on above: ADA recommended refe rence rangeRandom Glucose Reference Range is dependent on time and content of last meal. Glucose of more than 200 mg/dL in a nonstressed, ambulatory subject supports the diagnosis of Diabetes Mellitus. Result Comment: [place] om Glucose Reference Range is dependent on time and content of last meal. Glucose of more than 200 mg/dL in a nonstressed, ambulatory subject supports the diagnosis of Diabetes Mellitus. ADA recommended reference range Performed By: #### H CGQNT #### [facility] [address] [place] [address] HCG ( test) IAjanellei d Ql (U)Ordered By: Elier Jackson on 04-30-2023 HCG ( test) Ql (U) Negative [facility] HCG,Urineon 04-30-2023 Beta HCG ( test) Ql (U) Negative Normal [facility] Comment on above: Order Comment: Name Collection Type:: Clean-Voided Midstream Result Comment: PERF ORMED BY: [place] [address] PATHOLOGIST RIPRAP MAN FARNAZ ZULETA M.D. Performed By: #### U HCG, ADDONUAPLUS #### [address] Hematocrit [Volume Fraction] of Blood by Automated countOrdered By: Elier Jackson on 04-30-2023 Hematocrit (Bld) [Volume fraction] 32.3 % Low 34.0-46.4 [facility] Comment on above: Performed By: #### H CGQNT #### [address] Hemoglobin [Mass/volume] in BloodOrdered By: Elier Jackson on 04-30-2023 Hemoglobin (Bld) [Mass/Vol] 11.2 g/dL Low 11.8-15.4 [facility] Comment on above: Performed By: #### H CGQNT #### [address] Hepatic Panelon 04-30-2023 Albumin [Mass/Vol] 4.3 g/dL Normal 3.5-5.7 [facility] Comment on above: Performed By: #### H CGQNT #### [address] Bilirubin,Indirect 0.3 mg/dL Normal [facility] Comment on above: Performed By: #### H CGQNT #### [address] Bilirubin.indirect [Mass/Vol] 0.10 mg/dL Normal 0.03-0.18 [facility] Comment on above: Performed By: #### H CGQNT #### [address] Ketones Auto test strip (U) [Mass/Vol]Ordered By: Elier Jackson on 04-30-2023 Ketones (U) [Mass/Vol] Negative Negative [facility] - UrinalysisOrder ed By: Elier Jackson on 04-30-2023 Hyaline casts LM Ql (Urine sed) 0-8 [LPF] 0-8 [facility] Leukocytes [#/volume] correc flo for nucleated erythrocytes in Blood by Automated counOrdered By: Elier Jackson on 04-30-2023 WBC corrected for nucl RBC Auto (Bld) [#/Vol] 3.6 10*3/uL 3.8-11.6 [facility] Leukocytes [#/volume] in Blo od by Automated countOrdered By: Elier Jackson on 04-30-2023 WBC (Bld) [#/Vol] 3.6 10*3/uL Low 3.8-11.6 [facility] Comment on above: Performed By: #### H CGQNT #### [place] [address] [place] Lipase [Enzymatic activity/v olume] in Serum or PlasmaOrdered By: Elier Jackson on 04-30-2023 Lipase [Catalytic activity/Vol] 31.0 U/L Normal 11.0-82.0 [facility] Comment on above: Result Comment: PERF ORMED BY: [place] [address] PATHOLOGIST RIPRAP MAN FARNAZ ZULETA M.D. Performed By: #### H CGQNT #### [place] [address] [place] Lymphocytes [#/volume] in Bl ood by Automated countOrdered By: Elier Jackson on 04-30-2023 Lymphocytes (Bld) [#/Vol] 1.6 10*3/uL Normal 1.00-4.8 [facility] Center Comment on above: Performed By: #### H CGQNT #### [facility] [address] [place], [place] [id number] [place] Lymphocytes/100 leukocytes i n Blood by Automated countOrdered By: Elier Jackson on 04-30-2023 Lymphocytes/100 WBC (Bld) 44.2 % Normal . [facility] Comment on above: Performed By: #### H CGQNT #### [facility] [address] [place] [address] [place] MCH [Entitic mass] by Automa flo countOrdered By: Elier Jackson on 04-30-2023 MCH (RBC) [Entitic mass] 30.4 pg Normal 24.7-34.3 [facility] Comment on above: Performed By: #### H CGQNT #### [facility] [address] [place] [address] MCHC Auto (RBC) [Mass/Vol]Or dered By: Elier Jackson on 04-30-2023 MCHC (RBC) [Mass/Vol] 34.7 g/dL 32.0-35.0 [facility] MCV [Entitic volume] by Auto mated countOrdered By: Elier Jackson on 04-30-2023 MCV (RBC) [Entitic vol] 87.6 fL Normal 80-[address] [facility] Comment on above: Performed By: #### H CGQNT #### [facility] [address] [place] [address] Monocyte distribution width [Entitic volume] in Blood by AutomatedOrdered By: Elier Jackson on 04-30-2023 Monocyte distribution width Auto (Bld) [Entitic vol] 16.58 % 0.00-20.00 [facility] Neutrophils [#/volume] in Bl ood by Automated countOrdered By: Elier Jackson on 04-30-2023 Neutrophils (Bld) [#/Vol] 1.7 10*3/uL Low 1.8-7.7 [facility] Comment on above: Performed By: #### H CGQNT #### [facility] [address] [place] [address] Nitrite Test strip Ql (U)Ord ered By: Elier Jackson on 04-30-2023 Nitrite Ql (U) Negative Negative [facility] No Panel InformationOrdered By: Elier Jackson on 04-30-2023 Estimated GFR (CKD-EPI) > 60.0 mL/Min [facility]acy Creatinine Clearance (Chem 107.67 [facility] Nucleated erythrocytes [Pres ence] in Blood by Automated countOrdered By: Elier Jackson on 04-30-2023 Nucleated RBC Auto Ql (Bld) 0.1 /100{WBC} 0-0.5 [facility] Platelet mean volume [Entiti c volume] in Blood by Automated countOrdered By: Elier Jackson on 04-30-2023 Platelet mean volume (Bld) [Entitic vol] 8.0 fL Normal 6.3-10.7 [facility] Comment on above: Performed By: #### H CGQNT #### [address] Platelets [#/volume] in Bloo d by Automated countOrdered By: Elier Jackson on 04-30-2023 Platelets (Bld) [#/Vol] 415 10*3/uL Normal 150-450 [facility] Comment on above: Performed By: #### H CGQNT #### [address] Potassium [Moles/volume] in Serum or PlasmaOrdered By: Elier Jackson on 04-30-2023 Potassium [Moles/Vol] 3.8 mmol/L Normal 3.5-5.1 [facility] Comment on above: Performed By: #### H CGQNT #### [address] Protein Auto test strip (U) [Mass/Vol]Ordered By: Elier Jackson on 04-30-2023 Protein (U) [Mass/Vol] Negative Negative [facility] Protein [Mass/volume] in Ser um or PlasmaOrdered By: Elier Jackson on 04-30-2023 Protein [Mass/Vol] 7.6 g/dL Normal 6.4-8.9 [facility] Comment on above: Performed By: #### H CGQNT #### [address] Serum globulin measurement b y calculation (mass/volume)Ordered By: Elier Jackson on 04-30-2023 Globulin (S) [Mass/Vol] 3.3 g/dL Normal [facility] Comment on above: Performed By: #### H CGQNT #### [address] Serum or plasma albumin/glob ulin mass ratioOrdered By: Elier Jackson on 04-30-2023 Albumin/Globulin [Mass ratio] 1.3 {ratio} Normal [facility] Comment on above: Performed By: #### H CGQNT #### [facility] [address] [place] [address] Serum or plasma anion gap de terminationOrdered By: Elier Jackson on 04-30-2023 Anion gap [Moles/Vol] 14.7 mmol/L Normal 6.0-15.0 [facility] Comment on above: Performed By: #### H CGQNT #### [address] Serum or plasma non-glucuron idated bilirubin measurement (mass/volume)Ordered By: Elier Jackson on 04-30-2023 Bilirubin.indirect [Mass/Vol] 0.3 mg/dL [facility] Sodium [Moles/volume] in Ser um or PlasmaOrdered By: Elier Jackson on 04-30-2023 Sodium [Moles/Vol] 140 mmol/L Normal 136-145 [facility] Comment on above: Performed By: #### H CGQNT #### [address] Specific gravity Auto test s trip (U) [Rel density]Ordered By: Elier Jackson on 04-30-2023 Specific gravity (U) [Rel density] 1.018 1.001-1.030 [facility] Squamous epithelial cells de tection in urine sediment by light microscopyOrdered By: Elier Jackson on 04-30-2023 Epithelial cells.squamous LM Ql (Urine sed) 0-1 [HPF] 0-2 [facility] US pelvic completeon 023 US pelvic complete [facility] [address] [place] [address] Ultrasound Report Signed Patient: Livia Noyola MR#: [id number] [id number] : 1985 Acct:[id number] Age/Sex: 38 / F ADM Date: 04/30/23 Loc: ER Room: Type: [facility] ER Attending Dr: Ordering Provider: Elier Jackson DO Date of Service: 04/30/23 US/US pelvic complete: L pelvic pain ([id number]) US/US transvaginal: LT PELVIC PAIN Copies to: [...] Betancur Jr., D.O.04/30/2023 6:24 PM Dictation Location: [place] [address] Tech: Brooke Hodge Transcribed By: AMBER 04/30/231823 Dictated By: Dennis Betancur Jr, DO 04/30/231820 Signed By: 04/30/231823 Normal [facility] Urea nitrogen [Mass/volume] in Serum or PlasmaOrdered By: Elier Jackson on 04-30-2023 Urea nitrogen [Mass/Vol] 6 mg/dL Low 7-25 [facility] Comment on above: Performed By: #### H CGQNT #### [facility] [address] [place] [address] Urine bacteria detection by automated methodOrdered By: Elier Jackson on 04-30-2023 Bacteria Auto Ql (U) None seen None Seen [facility] Urine clarity by refractomet ry automatedOrdered By: Elier Jackson on 04-30-2023 Clarity Refractometry automated (U) Clear Clear [facility] Urine glucose measurement by automated test strip (mass/volume)Ordered By: Elier Jackson on 04-30-2023 Glucose Auto test strip (U) [Mass/Vol] Normal mg/dL Normal [facility] Urine hemoglobin detection b y automated test stripOrdered By: Elier Jackson on 04-30-2023 Hemoglobin Auto test strip Ql (U) 2+ Negative [facility] Urine leukocyte esterase det ection by automated test stripOrdered By: Elier Jackson on 04-30-2023 Leukocyte esterase Auto test strip Ql (U) Negative Negative [facility] Urine pH measurement by auto mated test stripOrdered By: Elier Jackson on 04-30-2023 pH (U) 5.5 [pH] Normal 5.0-9.0 [facility] Comment on above: Order Comment: Name Collection Type:: Clean-Voided Midstream Performed By: #### U HCG, ADDONUAPLUS #### [address] Urobilinogen Auto test strip (U) [Mass/Vol]Ordered By: Elier Jackson on 04-30-2023 Urobilinogen (U) [Mass/Vol] Normal mg/dL Normal [facility] Auto Diffon 04-24-2023 Basophils/100 WBC (Bld) 0.3 % Normal 0.0-2.0 [facility] Comment on above: Order Comment: Order Added by Discern Expert. Performed By: #### 2 129252, 1159823, 9246759, 20388119, 12687644 #### [facility] [address] [place] [address] Basophils/Leukocytes Auto (Bld) [Pure # fraction] 0.0 E9/L Normal 0.0-0.2 [facility] Comment on above: Order Comment: Order Added by Discern Expert. Performed By: #### 2 687873, 2876331, 6806834, 88605384, 19610270 #### [facility] [address] [place] [address] Eosinophils/100 WBC (Bld) 0.9 % Normal 0.0-8.0 [facility] Comment on above: Order Comment: Order Added by Discern Expert. Performed By: #### 2 045621, 6021204, 9761184, 84897200, 81398023 #### [facility] [address] [place] [address] Eosinophils/Leukocytes Auto (Bld) [Pure # fraction] 0.0 E9/L Normal 0.0-0.5 [facility] Comment on above: Order Comment: Order Added by Discern Expert. Performed By: #### 2 929431, 2920923, 2341560, 72801106, 61596770 #### [facility] [address] [place] [address] Lymphocytes/100 WBC (Bld) 49.9 % Normal 14.0-50.0 [facility] Comment on above: Order Comment: Order Added by Discern Expert. Performed By: #### 2 622206, 0194419, 6862782, 78689129, 53216693 #### [facility] [address] [place] [address] Lymphocytes/Leukocytes Auto (Bld) [Pure # fraction] 2.3 E9/L Normal 1.0-4.0 [facility] Comment on above: Order Comment: Order Added by Discern Expert. Performed By: #### 2 466975, 2716874, 8958326, 78701387, 44018099 #### [facility] [address] [place] [address] Monocytes/100 WBC (Bld) 7.1 % Normal 4.0-14.0 [facility] Comment on above: Order Comment: Order Added by Discern Expert. Performed By: #### 2 718623, 3450990, 1588789, 02193194, 91257387 #### [facility] [address] [place] [address] Monocytes/Leukocytes Auto (Bld) [Pure # fraction] 0.3 E9/L Normal 0.2-1.0 [facility] Comment on above: Order Comment: Order Added by Discern Expert. Performed By: #### 2 257038, 2945780, 2819554, 45582849, 92717914 #### [facility] [address] [place] [address] Neutrophils/100 WBC (Bld) 41.8 % Normal 36.0-75.0 [facility] Comment on above: Order Comment: Order Added by Discern Expert. Performed By: #### 2 669263, 7549351, 3695477, 46929929, 08983640 #### [facility] [address] [place] [address] Neutrophils/Leukocytes Auto (Bld) [Pure # fraction] 2.0 E9/L Normal 2.0-7.5 [facility] Comment on above: Order Comment: Order Added by Discern Expert. Performed By: #### 2 511266, 4202911, 4306731, 40266370, 41412444 #### [facility] [address] [place] [address] B hCG Qualon 04-24-2023 Beta HCG ( test) Ql Negative Normal [facility] Comment on above: Performed By: #### 2 141434, 2375398, 4965641, 49151858, 67221134 #### [facility] [address] [place] [address] BMPon 04-24-2023 Creatinine [Mass/Vol] 0.7 mg/dL Normal 0.5-1.3 [facility] Comment on above: Performed By: #### 2 787246, 1667620, 0182156, 55823595, 06151852 #### [facility] [address] [place] [address] Urea nitrogen [Mass/Vol] 6 mg/dL Normal 5-21 [facility] Comment on above: Performed By: #### 2 870154, 5595517, 4882198, 56108681, 41101693 #### [facility] [address] [place] [address] Urea nitrogen/Creatinine [Mass ratio] 9 No Units Low 10-20 [facility] Comment on above: Performed By: #### 2 811324, 7826179, 0973695, 72458880, 84221327 #### [facility] [address] [place] [address] Anion gap [Moles/Vol] 14 mmol/L Normal 6-16 [facility] Comment on above: Performed By: #### 2 496793, 3377017, 1044652, 56543961, 67163087 #### [facility] [address] [place] [address] Calcium [Mass/Vol] 9.4 mg/dL Normal 8.9-11.1 [facility] Comment on above: Performed By: #### 2 980240, 7165529, 2949778, 18890965, 55830081 #### [facility] [address] [place] [address] Chloride [Moles/Vol] 105 mmol/L Normal 101-111 [facility] Comment on above: Performed By: #### 2 000932, 4297675, 1176147, 26551463, 69649151 #### [facility] [address] [place] [address] CO2 [Moles/Vol] 23 mmol/L Normal 21-31 [facility] Comment on above: Performed By: #### 2 805644, 1029636, 4821030, 13656395, 27451120 #### [facility] [address] [place] [address] Glucose [Mass/Vol] 95 mg/dL Normal 55-199 [facility] Comment on above: Result Comment: If t his glucose result represents a fasting glucose, interpretation should refer to the following reference range: 55-99 mg/dL Performed By: #### 2 013010, 3947212, 2877376, 78834917, 69529792 #### [facility] [address] [place] [address] Potassium [Moles/Vol] 3.8 mmol/L Normal 3.5-5.3 [facility] Comment on above: Performed By: #### 2 641129, 9033894, 7862557, 83592822, 29898325 #### [facility] [address] [place] [address] Sodium [Moles/Vol] 138 mmol/L Normal 135-145 [facility] Comment on above: Performed By: #### 2 046762, 2655045, 2499794, 18958038, 07494440 #### [facility] [address] [place] [address] CBC w/ Auto Diffon Erythrocyte distribution width (RBC) [Ratio] 15.9 % High 10.9-14.2 [facility] Comment on above: Performed By: #### 2 849941, 5000207, 5814429, 60876833, 78462190 #### [facility] [address] [place] [address] Hematocrit (Bld) [Volume fraction] 33.7 % Low 34.0-46.0 [facility] Comment on above: Performed By: #### 2 043221, 0300552, 8465418, 04052043, 48386163 #### [facility] [address] [place] [address] Hemoglobin (Bld) [Mass/Vol] 11.7 g/dL Low 12.0-16.0 [facility] Comment on above: Performed By: #### 2 209049, 3144219, 0633094, 89224585, 20298952 #### [facility] [address] [place] [address] MCH (RBC) [Entitic mass] 29.7 pg Normal 27.0-34.0 [facility] Comment on above: Performed By: #### 2 343937, 4364454, 7119813, 45303229, 12998814 #### [facility] [address] [place] [address] MCHC (RBC) [Mass/Vol] 34.7 g/dL Normal 31.4-36.0 [facility] Comment on above: Performed By: #### 2 055071, 0758760, 0286623, 40173138, 11830618 #### [facility] [address] [place] [address] MCV (RBC) [Entitic vol] 85.8 fL Normal 80.0-100.0 [facility] Comment on above: Performed By: #### 2 868870, 8939732, 3804339, 77404175, 45887724 #### [facility] [address] [place] [address] Platelet mean volume (Bld) [Entitic vol] 8.2 fL Normal 6.4-10.8 [facility] Comment on above: Performed By: #### 2 582685, 1468104, 9449840, 51585102, 83212832 #### [facility] [address] [place] [address] Platelets (Bld) [#/Vol] 398.0 E9/L Normal 150.0-500.0 [facility] Comment on above: Performed By: #### 2 922753, 0953575, 7018793, 72692820, 68337581 #### [facility] [address] [place] [address] RBC (Bld) [#/Vol] 3.9 E12/L Low 4.3-5.9 [facility] Comment on above: Performed By: #### 2 019055, 1794372, 2173167, 99384855, 90833494 #### [facility] [address] [place] [address] WBC corrected for nucl RBC Auto (Bld) [#/Vol] 4.7 E9/L Normal 4.0-11.0 [facility] Comment on above: Performed By: #### 2 946852, 1843950, 7858731, 21313666, 90873906 #### [facility] [address] [place] [address] CHEMISTRYOrdered By: SYSTEM SYSTEM on 04-24-2023 Anion gap [Moles/Vol] 14 mmol/L Normal 6 - 16 mEq/L [facility] Calcium [Mass/Vol] 9.4 mg/dL Normal 8.9 - 11. 1 mg/dL [facility] Chloride [Moles/Vol] 105 mmol/L Normal 101 - 1 11 mmol/L [facility] CO2 [Moles/Vol] 23 mmol/L Normal 21 - 31 mmol/L [facility] Creatinine [Mass/Vol] 0.7 mg/dL Normal 0.5 - 1.3 mg/dL [facility] GFR/1.73 sq M.predicted among non-blacks MDRD (S/P/Bld) [Vol rate/Area] 115 mL/min/1.73 m2 Normal >=59mL/min/1 .73 m2 [facility] Comment on above: Interpretive Data: C hronic kidney disease could be indicated at eGFR's of less than 60 mL/min/1.73m2. Kidney failure is indicated at less than 15 mL/min/1.73m2. Glucose [Mass/Vol] 95 mg/dL Normal 55 - 199 mg/dL [facility] Comment on above: Interpretive Data: I f this glucose result represents a fasting glucose, interpretation should refer to the following reference range: 55-99 mg/dL Potassium [Moles/Vol] 3.8 mmol/L Normal 3.5 - 5.3 mmol/L [facility] Sodium [Moles/Vol] 138 mmol/L Normal 135 - 145 mmol/L [facility] Urea nitrogen [Mass/Vol] 6 mg/dL Normal 5 - 21 mg/dL [facility] Urea nitrogen/Creatinine [Mass ratio] 9 mg/mg Low 10 - 20 [facility] [place] Abdomen/Pelvis w/ Contras ton 04-24-2023 [...] 300 Contrast amount in ml's: 100 Normal [facility] Consent for Treatmenton 04-13 Consent for Treatment [id number] #1.00TIFF Normal [facility] Discharge Instructionson Discharge Instructions [id number] 110 [id number] #1.00TIFF Normal [facility] ED Clinical Summaryon 2022 ED Clinical Summary [place] [address] ED Clinical Summary Person Information Name: LIVIA NOYOLA/[facility] Age: 38 Years : 1985 Sex: Female Language: Belarusian PCP: BETTIE MIRELES Marital Status: Visit Id: [...] 04/24/2023 16:04:18 ADDRESS: [address] [place] [id number] PHYS DOC NOTES: MEDICAL INFORMATION: Prescriptions Given: New Medications [id number], [address], [place] [id number], [phone] oxycodone (oxyCODONE 5 mg Cap) 1 Capsules [...] up: With: Address: When: YOUR OBGYN at [facility] In 3 days 04/27/2023 Comments: Seek [...] Abdominal pain, acute, left lower quadrant Normal [facility] ED Note-Physicianon 04-24-20 ED Note-Physician Basic [...] is benign. I did review on clinic [facility]. She has a visit at [facility] for similar symptoms in the middle [...] for home. 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 Return precautions were discussed. All questions were answered. The patient was discharged home. Assessment/Plan Abdominal pain, acute, left lower quadrant (R10.32: Left lower quadrant pain) Ordered: oxycodone, 5 mg = 1 cap(s), Oral, q6hr, PRN Pain 8-10, X 3 day(s), # 12 cap(s), Refills(s) 0, Pharmacy: [id number], 165.1, cm, 04/24/23 13:32:00 EST, [...] With When Contact Information YOUR OBGYN at [facility] In 3 days 04/27/2023 EST Additional [...] follow-up with (more content not included)... Normal [facility] Comment on above: Result Comment: Elec tronically Signed By: Jignesh Dumont DO.br\Date and Time Signed: 04/24/23 17:56 [facility] ED Patient Education Noteon 04-24-2023 ED Patient [...] these instructions at home: Medicines ? Take wgxv-kzx-byemhho and prescription medicines only as told by [...] your condition for any changes. ? Take wqmf-xgs-vflvsqg and prescription medicines only as told by [...] Reviewed: 10/08/2019 Elsevier Patient Education ? 2022 [employer] Normal [facility] ED Patient Summaryon 023 ED Patient Summary [place] [id number] Patient Discharge Instructions Person Information Name: LIVIA NOYOLA Age: 38 Years Arrival Date: 04/24/2023 13:12:30 Discharge Diagnosis: Abdominal pain, acute, left lower quadrant Primary Care Physician: BETTIE MIRELES Provider Information Primary Provider: Jignesh Dumont DO Advanced Mailing Clerk:None The exam and treatment you received in the Emergency Department were for an urgent problem and are not intended as complete care. It is important that you follow up with a doctor, nurse practitioner, or physician?s store administrative assistant for ongoing care. If your symptoms [...] Instructions: With: Address: When: YOUR OBGYN at [facility] In 3 days 04/27/2023 Comments: Seek [...] opioids can be used to help relieve kqlnrfmh-xj-afkxnj pain and are often prescribed following a [...] Talk about (more content not included)... Normal [facility] HEMATOLOGYOrdered By: SYSTEM SYSTEM on 04-24-2023 [...] test) Ql Negative (04/24/23 1:55 PM) Normal [facility] UA With Cult Reflexon 2022 Bacteria LM Ql (Urine sed) TRACE Normal Trace [facility] Comment on above: Performed By: #### 2 099393, 2620207, 2973663, 93586589, 17707691 #### [facility] [address] [place] [address] Bilirubin Ql (U) Negative Normal Negative [facility] Comment on above: Performed By: #### 2 336726, 1181517, 4649560, 27332487, 40125251 #### [facility] [address] [place] [address] Clarity (U) CLEAR Normal Clear [facility] Comment on above: Performed By: #### 2 188211, 7871452, 1954824, 10285110, 75471359 #### [facility] [address] [place] [address] Color (U) STRAW Abnormal Yellow [facility] Comment on above: Performed By: #### 2 373603, 5170680, 0720125, 23937830, 11225538 #### [facility] [address] [place] [address] Epithelial cells.squamous LM.HPF (Urine sed) [#/Area] 3-4 Normal 0-2 [facility] Comment on above: Performed By: #### 2 077824, 3874822, 8330830, 35232166, 48514054 #### [facility] [address] [place] [address] Glucose Test strip (U) [Mass/Vol] Negative Normal Negative [facility] Comment on above: Performed By: #### 2 345712, 4441924, 1038169, 19777165, 01248062 #### [facility] [address] [place] [address] Hemoglobin Ql (U) Negative Normal Negative [facility] Comment on above: Performed By: #### 2 115657, 2950507, 2689781, 10032049, 22043033 #### [facility] [address] [place] [address] Ketones (U) [Mass/Vol] Negative Normal Negative [facility] Comment on above: Performed By: #### 2 013866, 4228302, 5439283, 58013011, 32894063 #### [facility] [address] [place] [address] [place].plasma/[place]. RBC (Bld) [Mass ratio] 0-3 Normal 0-3 [facility] Comment on above: Performed By: #### 2 337560, 2852873, 1419905, 95992868, 39908203 #### [facility] [address] [place] [address] Nitrite Ql (U) Negative Normal Negative [facility] Comment on above: Performed By: #### 2 041135, 1654247, 3180749, 41479586, 83008457 #### [facility] [address] [place] [address] pH (U) 7.0 [pH] Invalid Interpretation Code 5.0-9.0 [facility] Comment on above: Performed By: #### 2 167959, 9485906, 1355013, 15645275, 47752302 #### [facility] [address] [place] [address] Protein (U) [Mass/Vol] Negative Normal Negative [facility] Comment on above: Performed By: #### 2 345514, 9739960, 0560845, 64659795, 34429178 #### [facility] [address] [place] [address] Specific gravity (U) [Rel density] <=1.005 Invalid Interpretation Code 1.005-1.030 [facility] Comment on above: Performed By: #### 2 246012, 8687979, 0920271, 94052330, 25734770 #### [facility] [address] [place] [address] Type of Urine collection method Clean Catch Normal [facility] Comment on above: Performed By: #### 2 637507, 2117697, 4013470, 61929598, 88223175 #### [facility] [address] [place] [address] Urobilinogen Qn (U) 0.2 {Ivone'U}/dL Normal 0.0-1.0 [facility] Comment on above: Performed By: #### 2 450442, 3897894, 5793823, 22681379, 59781852 #### [facility] [address] [place], [place] [id number] WBC Auto Ql (U) TRACE Abnormal Negative [facility] Comment on above: Performed By: #### 2 [id number], [id number], [id number], [id number], [id number] #### [facility] [address] [place] [id number] WBC LM.HPF (Urine sed) [#/Area] 0-5 Normal 0-5 [facility] Comment on above: Performed By: #### 2 [id number], [id number], [id number], [id number], [id number] #### [facility] [address] [place] [address] URINALYSISOrdered By: Chance Guthrie on 04-24-2023 Bacteria [...] PM) Normal Negative [facility] UA Auto SS [place].plasma/[place]. RBC (Bld) [Mass ratio] 0-3 /HPF Normal [...] [facility] UA Auto SS Urobilinogen Qn (U) 0.2393611 {Ivone'U}/dL Normal 0.0 - 1.0 EU/dL [facility] [place] Auto SS WBC Auto Ql (U) Trace *ABN* (04/24/23 2:56 PM) Invalid Interpretation Code Negative [facility] [place]A Auto SS WBC LM.HPF (Urine sed) [#/Area] 0-5 /HPF Normal 0-5/HPF [facility] UA Auto SS eGFRon 04-24-2023 GFR/1.73 sq M.predicted among non-blacks MDRD (S/P/Bld) [Vol rate/Area] 115 mL/min/1.73 m2 Normal >=59 [facility] Comment on above: Order Comment: Order added by Discern Expert. Result Comment: Vocational Rehabilitation Consultant franklin kidney disease could be indicated at eGFR's of less than 60 mL/min/1.73m2. Kidney failure is indicated at less than 15 mL/min/1.73m2. Performed By: #### 2 [id number], [id number], [id number], [id number], [id number] #### [facility] [address] [place] [address] Anisocytosis [Presence] in B lood by Light microscopyOrdered By: Ming Childress on 04-02-2023 Anisocytosis Ql (Bld) Moderate Normal [facility] Comment on above: Performed By: #### U HCG, ADDONUAPLUS #### [facility] [address] [place] [address] [facility] Automated erythrocytes count in urine sediment (number/area)Ordered By: Ming Childress on 04-02-2023 RBC Auto (Urine sed) [#/Area] 20-49 [HPF] 0-4 [facility] Automated leukocytes count i n urine sediment (number/area)Ordered By: Ming Childress on 04-02-2023 WBC Auto (Urine sed) [#/Area] 3-4 [HPF] 0-4 [facility] Automated urine color determ inationOrdered By: Ming Childress on 04-02-2023 Color (U) Yellow Normal Yellow [facility] Comment on above: Order Comment: Name Collection Type:: Clean-Voided Midstream Performed By: #### U HCG, ADDONUAPLUS #### [facility] [address] [place] [address] Basic Metabolic Panelon 10-2 Creatinine Clr Calc Pharmacy 97.72 Normal [facility] Comment on above: Result Comment: PERF ORMED BY: [place] [address] PATHOLOGIST RIPRAP MAN FARNAZ ZULETA M.D. Performed By: #### U HCG, ADDONUAPLUS #### [address] GFR/1.73 sq M.predicted MDRD (S/P/Bld) [Vol rate/Area] mL/min/{1.73_m2} Normal [facility] Comment on above: Performed By: #### U HCG, ADDONUAPLUS #### [address] Basophils Auto (Bld) [#/Vol] Ordered By: Ming Childress on 04-02-2023 Basophils (Bld) [#/Vol] N/A [facility] Basophils/100 WBC Auto (Bld) Ordered By: Ming Childress on 04-02-2023 Basophils/100 WBC (Bld) N/A [facility] Basophils/100 leukocytes in Blood by Manual countOrdered By: Ming Childress on 04-02-2023 Basophils/100 WBC (Bld) 1 % Normal 0-[address] [facility] Comment on above: Performed By: #### U HCG, ADDONUAPLUS #### [address] Bilirubin Test strip Ql (U)O rdered By: Ming Childress on 04-02-2023 Bilirubin Ql (U) Negative Negative [facility] Calcium [Mass/volume] in Ser um or PlasmaOrdered By: Ming Childress on 04-02-2023 Calcium [Mass/Vol] 9.2 mg/dL Normal 8.6-10.3 [facility] Comment on above: Performed By: #### U HCG, ADDONUAPLUS #### [address] Carbon dioxide, total [Moles /volume] in Serum or PlasmaOrdered By: Ming Childress on 04-02-2023 CO2 [Moles/Vol] 18.5 mmol/L Low 21.0-31.0 [facility] Comment on above: Performed By: #### U HCG, ADDONUAPLUS #### [facility] [address] Chloride [Moles/volume] in S binu or PlasmaOrdered By: Ming Childress on 04-02-2023 Chloride [Moles/Vol] 108 mmol/L High 98-107 [facility] Comment on above: Performed By: #### U HCG, ADDONUAPLUS #### [address] Creatinine [Mass/volume] in Serum or PlasmaOrdered By: Ming Wagnery on 04-02-2023 Creatinine [Mass/Vol] 0.84 mg/dL Normal 0.60-1.20 [facility] Comment on above: Performed By: #### U HCG, ADDONUAPLUS #### [place] [address] [place] Diff and CBCon 04-02-2023 Hypochromasia Slight Normal [facility] Comment on above: Performed By: #### U HCG, ADDONUAPLUS #### [address] Mean Corpuscular HGB Conc 31.8 g/dL Low 32.0-35.0 [facility] Comment on above: Performed By: #### U HCG, ADDONUAPLUS #### [facility] [address] [place] [address] [place] Monocytes/100 WBC (Bld) 18.83 % Normal 0.00-20.00 [facility] Comment on above: Performed By: #### U HCG, ADDONUAPLUS #### [place] [address] [place] Nucleated Red Blood Cell 3 /100{WBC} High 0-0 [facility] Comment on above: Performed By: #### U HCG, ADDONUAPLUS #### [address] Ovalocytes Slight Normal [facility] Comment on above: Performed By: #### U HCG, ADDONUAPLUS #### [address] Platelet Estimate Increased Normal Normal [facility] Comment on above: Performed By: #### U HCG, ADDONUAPLUS #### [address] Platelet Morphology Normal Normal Normal [facility] Comment on above: Result Comment: PERF ORMED BY: [place] [address] PATHOLOGIST RIPRAP MAN FARNAZ ZULETA M.D. Performed By: #### U HCG, ADDONUAPLUS #### [address] Poikilocytosis Slight Normal [facility] Comment on above: Performed By: #### U HCG, ADDONUAPLUS #### [address] Polychromasia Moderate Normal [facility] Comment on above: Performed By: #### U HCG, ADDONUAPLUS #### [address] Smudge Cells Slight Normal [facility] Comment on above: Performed By: #### U HCG, ADDONUAPLUS #### [address] Toxic Vacuolation Slight Normal [facility] Comment on above: Performed By: #### U HCG, ADDONUAPLUS #### [place] [address] [place] Dipstick and Microscopicon 1 Appearance (U) Clear Normal Clear [facility] Comment on above: Order Comment: Name Collection Type:: Clean-Voided Midstream Performed By: #### U HCG, ADDONUAPLUS #### [address] Bacteria,Urine None Seen Normal None Seen [facility] Comment on above: Order Comment: Name Collection Type:: Clean-Voided Midstream Performed By: #### U HCG, ADDONUAPLUS #### [facility] [address] [place] [address] [place] Bilirubin,Urine Negative Normal Negative [facility] Comment on above: Order Comment: Name Collection Type:: Clean-Voided Midstream Performed By: #### U HCG, ADDONUAPLUS #### [facility] [address] [place] [address] [place] Glucose Ql (U) Normal Normal Normal [facility] Comment on above: Order Comment: Name Collection Type:: Clean-Voided Midstream Performed By: #### U HCG, ADDONUAPLUS #### [place] [address] [place] Hyaline Casts,Urine 0-8 Normal 0-8 [facility] Comment on above: Order Comment: Name Collection Type:: Clean-Voided Midstream Performed By: #### U HCG, ADDONUAPLUS #### [place] [address] [place] Ketones Ql (U) Trace High Negative [facility] Comment on above: Order Comment: Name Collection Type:: Clean-Voided Midstream Performed By: #### U HCG, ADDONUAPLUS #### [place] [id number] [place] Leukocyte esterase Test strip Ql (U) 1+ High Negative [facility] Comment on above: Order Comment: Name Collection Type:: Clean-Voided Midstream Performed By: #### U HCG, ADDONUAPLUS #### [place] [address] [place] Nitrite,Urine Negative Normal Negative [facility] Comment on above: Order Comment: Name Collection Type:: Clean-Voided Midstream Performed By: #### U HCG, ADDONUAPLUS #### [place] [id number] [place] Occult Blood,Urine 3+ High Negative [facility] Comment on above: Order Comment: Name Collection Type:: Clean-Voided Midstream Performed By: #### U HCG, ADDONUAPLUS #### [place] [address] [place] Protein,Urine Negative Normal Negative [facility] Comment on above: Order Comment: Name Collection Type:: Clean-Voided Midstream Performed By: #### U HCG, ADDONUAPLUS #### [place] [address] [place] RBC,Urine 20-49 High 0-4 [facility] Comment on above: Order Comment: Name Collection Type:: Clean-Voided Midstream Performed By: #### U HCG, ADDONUAPLUS #### [place] [address] [place] Specificy [place],Urine 1.018 Normal 1.001-1.030 [facility] Comment on above: Order Comment: Name Collection Type:: Clean-Voided Midstream Performed By: #### U HCG, ADDONUAPLUS #### [place] [address] [place] Squamous Epithelial Cell,Urine 3-4 High 0-2 [facility] Comment on above: Order Comment: Name Collection Type:: Clean-Voided Midstream Performed By: #### U HCG, ADDONUAPLUS #### [place] [address] [place] Urobilinogen,Urine Normal Normal Normal [facility] Comment on above: Order Comment: Name Collection Type:: Clean-Voided Midstream Performed By: #### U HCG, ADDONUAPLUS #### [place] [address] [place] WBC,Urine 3-4 Normal 0-4 [facility] Comment on above: Order Comment: Name Collection Type:: Clean-Voided Midstream Performed By: #### U HCG, ADDONUAPLUS #### [place] [address] [place] Eosinophils Auto (Bld) [#/Vo l]Ordered By: Ming Childress on 04-02-2023 Eosinophils (Bld) [#/Vol] N/A [facility] Eosinophils/100 WBC Auto (Bl d)Ordered By: Ming Wagnery on 04-02-2023 Eosinophils/100 WBC (Bld) N/A [facility] Eosinophils/100 leukocytes i n Blood by Manual countOrdered By: Ming Childress on 04-02-2023 Eosinophils/100 WBC (Bld) 4 % High 1-3 [facility] Comment on above: Performed By: #### U HCG, ADDONUAPLUS #### [address] Erythrocyte distribution wid th [Ratio] by Automated countOrdered By: Ming Arangoarthy on 04-02-2023 Erythrocyte distribution width (RBC) [Ratio] 15.2 % Normal 11.9-15.3 [facility] Comment on above: Performed By: #### U HCG, ADDONUAPLUS #### [address] Erythrocytes [#/volume] in B lood by Automated countOrdered By: Ming Arangoarthy on 04-02-2023 RBC (Bld) [#/Vol] 4.67 10*6/uL Normal 3.60-5.00 [facility] Comment on above: Performed By: #### U HCG, ADDONUAPLUS #### [address] Glucose [Mass/volume] in Ser um or PlasmaOrdered By: Ming Arangoarthy on 04-02-2023 Glucose [Mass/Vol] 94 mg/dL Normal 70-100 [facility] Comment on above: ADA recommended refe rence rangeRandom Glucose Reference Range is dependent on time and content of last meal. Glucose of more than 200 mg/dL in a nonstressed, ambulatory subject supports the diagnosis of Diabetes Mellitus. Result Comment: [place] om Glucose Reference Range is dependent on time and content of last meal. Glucose of more than 200 mg/dL in a nonstressed, ambulatory subject supports the diagnosis of Diabetes Mellitus. ADA recommended reference range Performed By: #### U HCG, ADDONUAPLUS #### [place] [address] [place] HCG ( test) Nannettei d Ql (U)Ordered By: Ming Childress on 04-02-2023 HCG ( test) Ql (U) Negative [facility] HCG,Urineon 04-02-2023 Beta HCG ( test) Ql (U) Negative Normal [facility] Comment on above: Order Comment: Name Collection Type:: Clean-Voided Midstream Result Comment: PERF ORMED BY: [place] [address] PATHOLOGIST RIPRAP MAN FARNAZ ZULETA M.D. Performed By: #### U HCG, ADDONUAPLUS #### [facility] [address] [place] [address] Hematocrit [Volume Fraction] of Blood by Automated countOrdered By: Ming Childress on 04-02-2023 Hematocrit (Bld) [Volume fraction] 36.1 % Normal 34.0-46.4 [facility] Comment on above: Performed By: #### U HCG, ADDONUAPLUS #### [facility] [address] [place] [address] Hemoglobin [Mass/volume] in BloodOrdered By: Ming Childress on 04-02-2023 Hemoglobin (Bld) [Mass/Vol] 11.5 g/dL Low 11.8-15.4 [facility] Comment on above: Performed By: #### U HCG, ADDONUAPLUS #### [facility] [address] [place] [address] [place] Hypochromia LM Ql (Bld)Order ed By: Ming Childress on 04-02-2023 Hypochromia Ql (Bld) Slight [facility] Ketones Auto test strip (U) [Mass/Vol]Ordered By: Ming Childress on 04-02-2023 Ketones (U) [Mass/Vol] Trace Negative [facility] - UrinalysisOrder ed By: Ming Childress on 04-02-2023 Hyaline casts LM Ql (Urine sed) 0-8 [LPF] 0-8 [facility] Leukocytes [#/volume] correc flo for nucleated erythrocytes in Blood by Automated counOrdered By: Ming Childress on 04-02-2023 WBC corrected for nucl RBC Auto (Bld) [#/Vol] 6.8 10*3/uL 3.8-11.6 [facility] Leukocytes [#/volume] in Blo od by Automated countOrdered By: Ming Childress on 04-02-2023 WBC (Bld) [#/Vol] 6.8 10*3/uL Normal 3.8-11.6 [facility] Comment on above: Performed By: #### U HCG, ADDONUAPLUS #### [facility] [address] [place] [address] Lymphocytes Auto (Bld) [#/Vo l]Ordered By: Ming Childress on 04-02-2023 Lymphocytes (Bld) [#/Vol] N/A [facility] Lymphocytes/100 WBC Auto (Bl d)Ordered By: Ming Childress on 04-02-2023 Lymphocytes/100 WBC (Bld) N/A [facility] Lymphocytes/100 leukocytes i n Blood by Manual countOrdered By: Ming Childress on 04-02-2023 Lymphocytes/100 WBC (Bld) 43 % High 18-42 [facility] Comment on above: Performed By: #### U HCG, ADDONUAPLUS #### [facility] [address] [place] [address] MCH [Entitic mass] by Automa flo countOrdered By: Ming Childress on 04-02-2023 MCH (RBC) [Entitic mass] 24.5 pg Low 24.7-34.3 [facility] Comment on above: Performed By: #### U HCG, ADDONUAPLUS #### [facility] [address] [place] [address] MCHC Auto (RBC) [Mass/Vol]Or dered By: Ming Childress on 04-02-2023 MCHC (RBC) [Mass/Vol] 31.8 g/dL 32.0-35.0 [facility] MCV [Entitic volume] by Auto mated countOrdered By: Ming Childress on 04-02-2023 MCV (RBC) [Entitic vol] 77.3 fL Low 80-[address] [facility] Comment on above: Performed By: #### U HCG, ADDONUAPLUS #### [facility] [address] [place] [address] Manual blood segmented neutr ophils/100 leukocytesOrdered By: Ming Childress on 04-02-2023 Segmented neutrophils/100 WBC (Bld) 47 % Low 50-70 [facility] Comment on above: Performed By: #### U HCG, ADDONUAPLUS #### [facility] [address] [place] [address] Monocyte distribution width [Entitic volume] in Blood by AutomatedOrdered By: Ming Childress on 04-02-2023 Monocyte distribution width Auto (Bld) [Entitic vol] 18.83 % 0.00-20.00 [facility] Monocytes Auto (Bld) [#/Vol] Ordered By: Ming Childress on 04-02-2023 Monocytes (Bld) [#/Vol] N/A [facility] Monocytes/100 WBC Auto (Bld) Ordered By: Ming Childress on 04-02-2023 Monocytes/100 WBC (Bld) N/A [facility] Monocytes/100 leukocytes in Blood by Manual countOrdered By: Ming Childress on 04-02-2023 Monocytes/100 WBC (Bld) 5 % Normal 2-[address] [facility] Comment on above: Performed By: #### U HCG, ADDONUAPLUS #### [facility] [address] [place] [address] [place] Neutrophils Auto (Bld) [#/Vo l]Ordered By: Ming Childress on 04-02-2023 Neutrophils (Bld) [#/Vol] N/A [facility] Neutrophils/100 WBC Auto (Bl d)Ordered By: Ming Childress on 04-02-2023 Neutrophils/100 WBC (Bld) N/A [facility] Nitrite Test strip Ql (U)Ord ered By: Ming Childress on 04-02-2023 Nitrite Ql (U) Negative Negative [facility] No Panel InformationOrdered By: Ming Childress on 04-02-2023 Estimated GFR (CKD-EPI) > 60.0 mL/Min [facility] Pharmacy Creatinine Clearance (Chem 97.72 [facility] Nucleated RBC/100 WBC Manual cnt (Bld) [Ratio]Ordered By: Ming Childress on 04-02-2023 Nucleated RBC/100 WBC (Bld) [Ratio] 3 /100{WBC} 0-0 [facility] Nucleated erythrocytes [Pres ence] in Blood by Automated countOrdered By: Ming Childress on 04-02-2023 Nucleated RBC Auto Ql (Bld) N/A [facility] Ovalocyte detectionOrdered B y: Ming Childress on 04-02-2023 Ovalocytes LM Ql (Bld) Slight [facility] Platelet adequacy [Presence] in Blood by Light microscopyOrdered By: Ming Childress on 04-02-2023 Platelets LM Ql (Bld) Increased Normal [facility] Platelet mean volume [Entiti c volume] in Blood by Automated countOrdered By: Ming Childress on 04-02-2023 Platelet mean volume (Bld) [Entitic vol] 8.1 fL Normal 6.3-10.7 [facility] Comment on above: Result Comment: PERF ORMED BY: [place] [address] PATHOLOGIST RIPRAP MAN FARNAZ ZULETA M.D. Performed By: #### U HCG, ADDONUAPLUS #### [facility] [address] Platelet morphology finding [Identifier] in BloodOrdered By: Ming Childress on 04-02-2023 Platelet morphology finding Nom (Bld) Normal Normal [facility] Platelets [#/volume] in Bloo d by Automated countOrdered By: Ming Childress on 04-02-2023 Platelets (Bld) [#/Vol] 492 10*3/uL High 150-450 [facility] Comment on above: Performed By: #### U HCG, ADDONUAPLUS #### [facility] [address] [place] [address] [place] Poikilocytosis [Presence] in Blood by Light microscopyOrdered By: Ming Childress on 04-02-2023 Poikilocytosis LM Ql (Bld) Slight [facility] Polychromasia [Presence] in Blood by Light microscopyOrdered By: Ming Childress on 04-02-2023 Polychromasia LM Ql (Bld) Moderate [facility] Potassium [Moles/volume] in Serum or PlasmaOrdered By: Ming Childress on 04-02-2023 Potassium [Moles/Vol] 3.7 mmol/L Normal 3.5-5.1 [facility] Comment on above: Performed By: #### U HCG, ADDONUAPLUS #### [address] Protein Auto test strip (U) [Mass/Vol]Ordered By: Ming Childress on 04-02-2023 Protein (U) [Mass/Vol] Negative Negative [facility] RBC morphologyOrdered By: Carmen Childress on 04-02-2023 RBC morphology finding Nom (Bld) N/A [facility] Serum or plasma anion gap de terminationOrdered By: Ming Childress on 04-02-2023 Anion gap [Moles/Vol] 14.2 mmol/L Normal 6.0-15.0 [facility] Comment on above: Performed By: #### U HCG, ADDONUAPLUS #### [address] Smudge cell detectionOrdered By: Ming Childress on 04-02-2023 Smudge cells LM Ql (Bld) Slight [facility] Sodium [Moles/volume] in Ser um or PlasmaOrdered By: Ming Childress on 04-02-2023 Sodium [Moles/Vol] 137 mmol/L Normal 136-145 [facility] Comment on above: Performed By: #### U HCG, ADDONUAPLUS #### [address] Specific gravity Auto test s trip (U) [Rel density]Ordered By: Ming Childress on 04-02-2023 Specific gravity (U) [Rel density] 1.018 1.001-1.030 [facility] Squamous epithelial cells de tection in urine sediment by light microscopyOrdered By: Ming Childress on 04-02-2023 Epithelial cells.squamous LM Ql (Urine sed) 3-4 [HPF] 0-2 [facility] Toxic leukocyte vacuolation detectionOrdered By: Ming Childress on 04-02-2023 Leukocyte toxic vacuoles LM Ql (Bld) Slight [facility] Urea nitrogen [Mass/volume] in Serum or PlasmaOrdered By: Ming Childress on 04-02-2023 Urea nitrogen [Mass/Vol] 9 mg/dL Normal 7-25 [facility] Comment on above: Performed By: #### U HCG, ADDONUAPLUS #### [facility] [address] [place] [address] Urine bacteria detection by automated methodOrdered By: Ming Childress on 04-02-2023 Bacteria Auto Ql (U) None seen None Seen [facility] Urine clarity by refractomet ry automatedOrdered By: Ming Childress on 04-02-2023 Clarity Refractometry automated (U) Clear Clear [facility] Urine glucose measurement by automated test strip (mass/volume)Ordered By: Ming Childress on 04-02-2023 Glucose Auto test strip (U) [Mass/Vol] Normal mg/dL Normal [facility] Urine hemoglobin detection b y automated test stripOrdered By: Ming Childress on 04-02-2023 Hemoglobin Auto test strip Ql (U) 3+ Negative [facility] Urine leukocyte esterase det ection by automated test stripOrdered By: Ming Childress on 04-02-2023 Leukocyte esterase Auto test strip Ql (U) 1+ Negative [facility] Urine pH measurement by auto mated test stripOrdered By: Ming Childress on 04-02-2023 pH (U) 6.0 [pH] Normal 5.0-9.0 [facility] Comment on above: Order Comment: Name Collection Type:: Clean-Voided Midstream Performed By: #### U HCG, ADDONUAPLUS #### [facility] [address] [place] [address] [place] Urobilinogen Auto test strip (U) [Mass/Vol]Ordered By: Ming Childress on 04-02-2023 Urobilinogen (U) [Mass/Vol] Normal mg/dL Normal [facility] Alanine aminotransferase [En zymatic activity/volume] in Serum or PlasmaOrdered By: Ming Childress on 03-29-2023 ALT [Catalytic activity/Vol] 14 U/L Normal 7-52 [facility] Comment on above: Performed By: #### B MP, LIPASE, HEPATIC #### [place] [address] [place] Albumin [Mass/volume] in Ser um or Plasma by Bromocresol green (BCG) dye binding methoOrdered By: Ming Childress on 03-29-2023 Albumin BCG dye [Mass/Vol] 4.0 g/dL 3.5-5.7 [facility] Alkaline phosphatase [Enzyma tic activity/volume] in Serum or PlasmaOrdered By: Ming Childress on 03-29-2023 ALP [Catalytic activity/Vol] 61 U/L Normal 34-104 [facility] Comment on above: Performed By: #### B MP, LIPASE, HEPATIC #### [address] Aspartate aminotransferase [ Enzymatic activity/volume] in Serum or PlasmaOrdered By: Ming Childress on 03-29-2023 AST [Catalytic activity/Vol] 19 U/L Normal 13-39 [facility] Comment on above: Performed By: #### B MP, LIPASE, HEPATIC #### [address] Automated basophil %Ordered By: Ming Childress on 03-29-2023 Basophils/100 WBC (Bld) 1.3 % Normal . [facility] Comment on above: Performed By: #### U HCG, ADDONUAPLUS #### [address] Automated basophil countOrde red By: Ming Childress on 03-29-2023 Basophils (Bld) [#/Vol] 0.1 10*3/uL Normal 0.0-0.2 [facility] Comment on above: Result Comment: PERF ORMED BY: [place] [address] PATHOLOGIST RIPRAP MAN FARNAZ ZULETA M.D. Performed By: #### U HCG, ADDONUAPLUS #### [address] Automated blood monocyte cou ntOrdered By: Ming Childress on 03-29-2023 Monocytes (Bld) [#/Vol] 0.6 10*3/uL Normal 0.0-0.8 [facility] Comment on above: Performed By: #### U HCG, ADDONUAPLUS #### [address] Automated eosinophil %Ordere d By: Ming Childress on 03-29-2023 Eosinophils/100 WBC (Bld) 1.8 % Normal . [facility] Comment on above: Performed By: #### U HCG, ADDONUAPLUS #### [address] Automated eosinophil countOr dered By: Ming Childress on 03-29-2023 Eosinophils (Bld) [#/Vol] 0.1 10*3/uL Normal 0.0-0.45 [facility] Comment on above: Performed By: #### U HCG, ADDONUAPLUS #### [address] Automated monocyte %Ordered By: Ming Childress on 03-29-2023 Monocytes/100 WBC (Bld) 7.3 % Normal . [facility] Comment on above: Performed By: #### U HCG, ADDONUAPLUS #### [address] Automated neutrophil %Ordere d By: Ming Childress on 03-29-2023 Neutrophils/100 WBC (Bld) 46.8 % Normal . [facility] Comment on above: Performed By: #### U HCG, ADDONUAPLUS #### [address] Automated urine color determ inationOrdered By: Ming Childress on 03-29-2023 Color (U) Yellow Normal Yellow [facility] Comment on above: Order Comment: Name Collection Type:: Clean-Voided Midstream Performed By: #### H CGQNT #### [facility] [address] Basic Metabolic Panelon 03-13 Creatinine Clr Calc Pharmacy 134.47 Normal [facility] Comment on above: Performed By: #### B MP, LIPASE, HEPATIC #### [facility] [address] GFR/1.73 sq M.predicted MDRD (S/P/Bld) [Vol rate/Area] mL/min/{1.73_m2} Normal [facility] Comment on above: Performed By: #### B MP, LIPASE, HEPATIC #### [facility] [address] Bilirubin Test strip Ql (U)O rdered By: Ming Childress on 03-29-2023 Bilirubin Ql (U) Negative Negative [facility] Bilirubin.direct [Mass/volum e] in Serum or PlasmaOrdered By: Ming Childress on 03-29-2023 Bilirubin.direct [Mass/Vol] 0.10 mg/dL 0.03-0.18 [facility] Bilirubin.total [Mass/volume ] in Serum or PlasmaOrdered By: Ming Childress on 03-29-2023 Bilirubin [Mass/Vol] 0.3 mg/dL Normal 0.3-1.0 [facility] Comment on above: Performed By: #### B MP, LIPASE, HEPATIC #### [facility] [address] abdomen pelvis w conon CT abdomen pelvis w con [facility] [address] [place] [address] CT Scan Report Signed Patient: Livia Noyola MR#: [id number] 757 : 1985 Acct:[id number] Age/Sex: 38 / F ADM Date: 03/29/23 Loc: 3T Room: 2O7169-8 Type: ADM IN Attending Dr: Christi Aquino [...] Alesha Tejada M.D.03/29/2023 7:14 AM Dictation Location: [place] [address] Transcribed By: [facility] 03/29/23713 Dictated By: Alesha Tejada MD 03/29/23709 Signed By: 03/29/23713 Normal [facility] Calcium [Mass/volume] in Ser um or PlasmaOrdered By: Ming Childress on 03-29-2023 Calcium [Mass/Vol] 8.9 mg/dL Normal 8.6-10.3 [facility] Comment on above: Performed By: #### B MP, LIPASE, HEPATIC #### [address] Carbon dioxide, total [Moles /volume] in Serum or PlasmaOrdered By: Ming Childress on 03-29-2023 CO2 [Moles/Vol] 22.2 mmol/L Normal 21.0-31.0 [facility] Comment on above: Performed By: #### B MP, LIPASE, HEPATIC #### [address] Chloride [Moles/volume] in S binu or PlasmaOrdered By: Ming Childress on 03-29-2023 Chloride [Moles/Vol] 107 mmol/L Normal 98-107 [facility] Comment on above: Performed By: #### B MP, LIPASE, HEPATIC #### [address] Complete Blood Count Auto Di ffon 03-29-2023 Mean Corpuscular HGB Conc 32.0 g/dL Normal 32.0-35.0 [facility] Comment on above: Performed By: #### U HCG, ADDONUAPLUS #### [address] NRBC% 0.1 /100{WBC} Normal 0-0.5 [facility] Comment on above: Performed By: #### U HCG, ADDONUAPLUS #### [address] Creatinine [Mass/volume] in Serum or PlasmaOrdered By: Ming Childress on 03-29-2023 Creatinine [Mass/Vol] 0.63 mg/dL Normal 0.60-1.20 [facility] Comment on above: Performed By: #### B MP, LIPASE, HEPATIC #### [address] Erythrocyte distribution wid th [Ratio] by Automated countOrdered By: Ming Childress on 03-29-2023 Erythrocyte distribution width (RBC) [Ratio] 15.2 % Normal 11.9-15.3 [facility] Comment on above: Performed By: #### U HCG, ADDONUAPLUS #### [facility] [address] Erythrocytes [#/volume] in B lood by Automated countOrdered By: Ming Childress on 03-29-2023 RBC (Bld) [#/Vol] 4.34 10*6/uL Normal 3.60-5.00 [facility] Comment on above: Performed By: #### U HCG, ADDONUAPLUS #### [facility] [address] [place] [address] [place] Glucose [Mass/volume] in Ser um or PlasmaOrdered By: Ming Childress on 03-29-2023 Glucose [Mass/Vol] 90 mg/dL Normal 70-100 [facility] Comment on above: ADA recommended refe rence rangeRandom Glucose Reference Range is dependent on time and content of last meal. Glucose of more than 200 mg/dL in a nonstressed, ambulatory subject supports the diagnosis of Diabetes Mellitus. Result Comment: [place] Glucose Reference Range is dependent on time and content of last meal. Glucose of more than 200 mg/dL in a nonstressed, ambulatory subject supports the diagnosis of Diabetes Mellitus. ADA recommended reference range Performed By: #### B MP, LIPASE, HEPATIC #### [address] HCG ( test) IA.rapi d Ql (U)Ordered By: Ming Childress on 03-29-2023 HCG ( test) Ql (U) Negative [facility] HCG,Urineon 03-29-2023 Beta HCG ( test) Ql (U) Negative Normal [facility] Comment on above: Order Comment: Name Collection Type:: Clean-Voided Midstream Result Comment: PERF ORMED BY: [place] [address] PATHOLOGIST RIPRAP MAN FARNAZ ZULETA M.D. Performed By: #### H CGQNT #### [address] Hematocrit [Volume Fraction] of Blood by Automated countOrdered By: Ming Childress on 03-29-2023 Hematocrit (Bld) [Volume fraction] 32.6 % Low 34.0-46.4 [facility] Comment on above: Performed By: #### U HCG, ADDONUAPLUS #### [address] Hemoglobin [Mass/volume] in BloodOrdered By: Ming Childress on 03-29-2023 Hemoglobin (Bld) [Mass/Vol] 10.4 g/dL Low 11.8-15.4 [facility] Comment on above: Performed By: #### U HCG, ADDONUAPLUS #### [address] Hepatic Panelon 03-29-2023 Albumin [Mass/Vol] 4.0 g/dL Normal 3.5-5.7 [facility] Comment on above: Performed By: #### B MP, LIPASE, HEPATIC #### [address] Bilirubin,Indirect 0.2 mg/dL Normal [facility] Comment on above: Performed By: #### B MP, LIPASE, HEPATIC #### [address] Bilirubin.indirect [Mass/Vol] 0.10 mg/dL Normal 0.03-0.18 [facility] Comment on above: Performed By: #### B MP, LIPASE, HEPATIC #### [address] Ketones Auto test strip (U) [Mass/Vol]Ordered By: Ming Childress on 03-29-2023 Ketones (U) [Mass/Vol] Negative Negative [facility] Lactate [Moles/volume] in Se rum or PlasmaOrdered By: Megan Muniz on 03-29-2023 Lactate [Moles/Vol] 0.8 mmol/L Normal 0.5-2.2 [facility] Comment on above: Result Comment: PERF ORMED BY: [address] [place] [address] PATHOLOGIST RIPRAP MAN FARNAZ ZULETA M.D. Performed By: #### H CGQNT #### [address] Leukocytes [#/volume] correc flo for nucleated erythrocytes in Blood by Automated counOrdered By: Ming Childress on 03-29-2023 WBC corrected for nucl RBC Auto (Bld) [#/Vol] 7.5 10*3/uL 3.8-11.6 [facility] Leukocytes [#/volume] in Blo od by Automated countOrdered By: Ming Childress on 03-29-2023 WBC (Bld) [#/Vol] 7.5 10*3/uL Normal 3.8-11.6 [facility] Comment on above: Performed By: #### U HCG, ADDONUAPLUS #### [address] Lipase [Enzymatic activity/v olume] in Serum or PlasmaOrdered By: Ming Childress on 03-29-2023 Lipase [Catalytic activity/Vol] 30.0 U/L Normal 11.0-82.0 [facility] Comment on above: Result Comment: PERF ORMED BY: [place] [address] PATHOLOGIST RIPRAP MAN FARNAZ ZULETA M.D. Performed By: #### B MP, LIPASE, HEPATIC #### [place] [address] [place] Lymphocytes [#/volume] in Bl ood by Automated countOrdered By: Ming Childress on 03-29-2023 Lymphocytes (Bld) [#/Vol] 3.2 10*3/uL Normal 1.00-4.8 [facility] Comment on above: Performed By: #### U HCG, ADDONUAPLUS #### [place] [address] [place] Lymphocytes/100 leukocytes i n Blood by Automated countOrdered By: Ming Childress on 03-29-2023 Lymphocytes/100 WBC (Bld) 42.8 % Normal . [facility] Comment on above: Performed By: #### U HCG, ADDONUAPLUS #### [facility] [address] [place] [address] MCH [Entitic mass] by Automa flo countOrdered By: Ming Childress on 03-29-2023 MCH (RBC) [Entitic mass] 24.1 pg Low 24.7-34.3 [facility] Comment on above: Performed By: #### U HCG, ADDONUAPLUS #### [facility] [address] [place] [address] MCHC Auto (RBC) [Mass/Vol]Or dered By: Ming Childress on 03-29-2023 MCHC (RBC) [Mass/Vol] 32.0 g/dL 32.0-35.0 [facility] MCV [Entitic volume] by Auto mated countOrdered By: Ming Childress on 03-29-2023 MCV (RBC) [Entitic vol] 75.2 fL Low 80-[address] [facility] Comment on above: Performed By: #### U HCG, ADDONUAPLUS #### [facility] [address] [place] [address] Neutrophils [#/volume] in Bl ood by Automated countOrdered By: Ming Childress on 03-29-2023 Neutrophils (Bld) [#/Vol] 3.5 10*3/uL Normal 1.8-7.7 [facility] Comment on above: Performed By: #### U HCG, ADDONUAPLUS #### [facility] [address] [place] [address] Nitrite Test strip Ql (U)Ord ered By: Ming Childress on 03-29-2023 Nitrite Ql (U) Negative Negative [facility] No Panel InformationOrdered By: Ming Childress on 03-29-2023 Estimated GFR (CKD-EPI) > 60.0 mL/Min [facility] Pharmacy Creatinine Clearance (Chem 134.47 [facility] Nucleated erythrocytes [Pres ence] in Blood by Automated countOrdered By: Ming Childress on 03-29-2023 Nucleated RBC Auto Ql (Bld) 0.1 /100{WBC} 0-0.5 [facility] Platelet mean volume [Entiti c volume] in Blood by Automated countOrdered By: Ming Arangoarthy on 03-29-2023 Platelet mean volume (Bld) [Entitic vol] 8.0 fL Normal 6.3-10.7 [facility] Comment on above: Performed By: #### U HCG, ADDONUAPLUS #### [facility] [address] [place] [address] Platelets [#/volume] in Bloo d by Automated countOrdered By: Ming Childress on 03-29-2023 Platelets (Bld) [#/Vol] 396 10*3/uL Normal 150-450 [facility] Comment on above: Performed By: #### U HCG, ADDONUAPLUS #### [address] Potassium [Moles/volume] in Serum or PlasmaOrdered By: Ming Childress on 03-29-2023 Potassium [Moles/Vol] 3.6 mmol/L Normal 3.5-5.1 [facility] Comment on above: Performed By: #### B MP, LIPASE, HEPATIC #### [address] Protein Auto test strip (U) [Mass/Vol]Ordered By: Ming Childress on 03-29-2023 Protein (U) [Mass/Vol] Negative Negative [facility] Protein [Mass/volume] in Ser um or PlasmaOrdered By: Ming Childress on 03-29-2023 Protein [Mass/Vol] 6.8 g/dL Normal 6.4-8.9 [facility] Comment on above: Performed By: #### B MP, LIPASE, HEPATIC #### [address] Serum globulin measurement b y calculation (mass/volume)Ordered By: Ming Childress on 03-29-2023 Globulin (S) [Mass/Vol] 2.8 g/dL Normal [facility] Comment on above: Performed By: #### B MP, LIPASE, HEPATIC #### [address] Serum or plasma albumin/glob ulin mass ratioOrdered By: Ming Childress on 03-29-2023 Albumin/Globulin [Mass ratio] 1.4 {ratio} Normal [facility] Comment on above: Performed By: #### B MP, LIPASE, HEPATIC #### [address] Serum or plasma anion gap de terminationOrdered By: Ming Childress on 03-29-2023 Anion gap [Moles/Vol] 12.4 mmol/L Normal 6.0-15.0 [facility] Comment on above: Performed By: #### B MP, LIPASE, HEPATIC #### [address] Serum or plasma non-glucuron idated bilirubin measurement (mass/volume)Ordered By: Ming Childress on 03-29-2023 Bilirubin.indirect [Mass/Vol] 0.2 mg/dL [facility] Sodium [Moles/volume] in Ser um or PlasmaOrdered By: Ming Childress on 03-29-2023 Sodium [Moles/Vol] 138 mmol/L Normal 136-145 [facility] Comment on above: Performed By: #### B MP, LIPASE, HEPATIC #### [address] Specific gravity Auto test s trip (U) [Rel density]Ordered By: Ming Childress on 03-29-2023 Specific gravity (U) [Rel density] 1.003 1.001-1.030 [facility] US transvaginalon 03-29-2023 US transvaginal [place] [address] Ultrasound Report Signed Patient: Livia Noyola MR#: [id number] 757 : 1985 Acct:[id number] Age/Sex: 38 / F ADM Date: 03/29/23 Loc: Room: [address] [place] [address] Type: ADM IN Attending Dr: Christi Aquino MD Ordering Provider: Ming Childress DO Date of Service: 03/29/23 US/US transvaginal: r/o L ovarian torsion ([id number]) US/US pelvic complete: PAIN Copies to: DO [...] Davi Figueroa M.D.03/29/2023 8:20 AM Dictation Location: [place] [address] Tech: Brooke Naveen Transcribed By: AMBER 03/29/23819 Dictated By: Davi Figueroa DO 03/29/23815 Signed By: 03/29/23819 Normal [facility] Urea nitrogen [Mass/volume] in Serum or PlasmaOrdered By: Ming Childress on 03-29-2023 Urea nitrogen [Mass/Vol] 6 mg/dL Low 7-25 [facility] Comment on above: Performed By: #### B MP, LIPASE, HEPATIC #### [facility] [address] Urinalysison 03-29-2023 Appearance (U) Clear Normal Clear [facility] Comment on above: Order Comment: Name Collection Type:: Clean-Voided Midstream Performed By: #### H CGQNT #### [facility] [address] [place] [id number] [facility] Bilirubin,Urine Negative Normal Negative [facility] Comment on above: Order Comment: Name Collection Type:: Clean-Voided Midstream Performed By: #### H CGQNT #### [place] [id number] [place] Glucose Ql (U) Normal Normal Normal [facility] Comment on above: Order Comment: Name Collection Type:: Clean-Voided Midstream Performed By: #### H CGQNT #### [place] [id number] [place] Ketones Ql (U) Negative Normal Negative [facility] Comment on above: Order Comment: Name Collection Type:: Clean-Voided Midstream Performed By: #### H CGQNT #### [place] [address] [place] Leukocyte esterase Test strip Ql (U) Negative Normal Negative [facility] Comment on above: Order Comment: Name Collection Type:: Clean-Voided Midstream Performed By: #### H CGQNT #### [place] [address] [place] Nitrite,Urine Negative Normal Negative [facility] Comment on above: Order Comment: Name Collection Type:: Clean-Voided Midstream Performed By: #### H CGQNT #### [place] [address] [place] Occult Blood,Urine Negative Normal Negative [facility] Comment on above: Order Comment: Name Collection Type:: Clean-Voided Midstream Performed By: #### H CGQNT #### [place] [id number] [place] Protein,Urine Negative Normal Negative [facility] Comment on above: Order Comment: Name Collection Type:: Clean-Voided Midstream Performed By: #### H CGQNT #### [place] [id number] [place] Specificy [place],Urine 1.003 Normal 1.001-1.030 [facility] Comment on above: Order Comment: Name Collection Type:: Clean-Voided Midstream Performed By: #### H CGQNT #### [place] [id number] [place] Urobilinogen,Urine Normal Normal Normal [facility] Comment on above: Order Comment: Name Collection Type:: Clean-Voided Midstream Performed By: #### H CGQNT #### [facility] [address] [place] [address] Urine clarity by refractomet ry automatedOrdered By: Ming Childress on 03-29-2023 Clarity Refractometry automated (U) Clear Clear [facility] Urine glucose measurement by automated test strip (mass/volume)Ordered By: Ming Childress on 03-29-2023 Glucose Auto test strip (U) [Mass/Vol] Normal mg/dL Normal [facility] Urine hemoglobin detection b y automated test stripOrdered By: Ming Childress on 03-29-2023 Hemoglobin Auto test strip Ql (U) Negative Negative [facility] Urine leukocyte esterase det ection by automated test stripOrdered By: Ming Childress on 03-29-2023 Leukocyte esterase Auto test strip Ql (U) Negative Negative [facility] Urine pH measurement by auto mated test stripOrdered By: Ming Childress on 03-29-2023 pH (U) 7.5 [pH] Normal 5.0-9.0 [facility] Comment on above: Order Comment: Name Collection Type:: Clean-Voided Midstream Performed By: #### H CGQNT #### [facility] [address] [place] [address] Urobilinogen Auto test strip (U) [Mass/Vol]Ordered By: Ming Childress on 03-29-2023 Urobilinogen (U) [Mass/Vol] Normal mg/dL Normal [facility] Automated urine color determ inationOrdered By: Elier Jackson on 02-06-2023 Color (U) Yellow Normal Yellow [facility] Comment on above: Order Comment: Name Collection Type:: Clean-Voided Midstream Performed By: #### U A, UHCG #### [facility] [address] [place] [address] Bilirubin Test strip Ql (U)O rdered By: Elier Jackson on 02-06-2023 Bilirubin Ql (U) Negative Negative [facility] CT abdomen pelvis w conon CT abdomen pelvis w con [facility] [address] [place] [address] CT Scan Report Signed Patient: Livia Noyola MR#: [id number] 757 : 1985 Acct:[id number] Age/Sex: 38 / F ADM Date: 02/05/23 Loc: ER Room: Type: [facility] ER Attending Dr: Copies to: Elier Jackson [...] Betancur Jr., D.O.02/06/2023 11:23 AM Dictation Location: [facility] Transcribed By: [facility] 02/06/23 1123 Dictated By: Dennis Betancur Jr, DO 02/06/23 1109 Signed By: 02/06/23 1123 Normal [facility] HCG ( test) IA.rapi d Ql (U)Ordered By: Elier Jackson on 02-06-2023 HCG ( test) Ql (U) Negative [facility] HCG,Urineon 02-06-2023 Beta HCG ( test) Ql (U) Negative Normal [facility] Comment on above: Order Comment: Name Collection Type:: Clean-Voided Midstream Result Comment: PERF ORMED BY: [place] [address] PATHOLOGIST RIPRAP MAN FARNAZ ZULETA M.D. Performed By: #### U A, [facility] #### [address] Ketones Auto test strip (U) [Mass/Vol]Ordered By: Elier Jackson on 02-06-2023 Ketones (U) [Mass/Vol] Negative Negative [facility] Nitrite Test strip Ql (U)Ord ered By: Elier Jackson on 02-06-2023 Nitrite Ql (U) Negative Negative [facility] Protein Auto test strip (U) [Mass/Vol]Ordered By: Elier Jackson on 02-06-2023 Protein (U) [Mass/Vol] Negative Negative [facility] Specific gravity Auto test s trip (U) [Rel density]Ordered By: Elier Jackson on 02-06-2023 Specific gravity (U) [Rel density] 1.007 1.001-1.030 [facility] US pelvic completeon 023 US pelvic complete [facility] [address] [place] [address] Ultrasound Report Signed Patient: Livia Noyola MR#: [id number] 757 : 1985 Acct:[id number] Age/Sex: 38 / F ADM Date: 02/05/23 Loc: ER Room: Type: [facility] ER Attending Dr: Ordering Provider: Elier Jackson DO Date of Service: 02/06/23 US/US pelvic complete: adnexa pain ([id number]) US/US transvaginal: . Copies to: Elier Jackson [...] Betancur Jr., D.O.02/06/2023 11:25 AM Dictation [facility] Tech: Jada Webb Transcribed By: [facility] 02/06/23 112 Dictated By: Dennis Betancur Jr, DO 02/06/231122 Signed By: 02/06/23 112 Normal [facility] Urinalysison 02-06-2023 Appearance (U) Clear Normal Clear [facility] Comment on above: Order Comment: Name Collection Type:: Clean-Voided Midstream Performed By: #### U A, UHCG #### [facility] [address] [place] [id number] [place] Bilirubin,Urine Negative Normal Negative [facility] Comment on above: Order Comment: Name Collection Type:: Clean-Voided Midstream Performed By: #### U A, UHCG #### [facility] [address] [place] [address] [place] Glucose Ql (U) Normal Normal Normal [facility] Comment on above: Order Comment: Name Collection Type:: Clean-Voided Midstream Performed By: #### U A, UHCG #### [facility] [address] [place] [address] [place] Ketones Ql (U) Negative Normal Negative [facility] Comment on above: Order Comment: Name Collection Type:: Clean-Voided Midstream Performed By: #### U A, UHCG #### [facility] [address] [place] [id number] [place] Leukocyte esterase Test strip Ql (U) Negative Normal Negative [facility] Comment on above: Order Comment: Name Collection Type:: Clean-Voided Midstream Performed By: #### U A, UHCG #### [facility] [address] [place] [address] [place] Nitrite,Urine Negative Normal Negative [facility] Comment on above: Order Comment: Name Collection Type:: Clean-Voided Midstream Performed By: #### U A, UHCG #### [place] [address] [place] Occult Blood,Urine Negative Normal Negative [facility] Comment on above: Order Comment: Name Collection Type:: Clean-Voided Midstream Performed By: #### U A, UHCG #### [place] [address] [place] Protein,Urine Negative Normal Negative [facility] Comment on above: Order Comment: Name Collection Type:: Clean-Voided Midstream Performed By: #### U A, UHCG #### [place] [address] [place] Specificy [place],Urine 1.007 Normal 1.001-1.030 [facility] Comment on above: Order Comment: Name Collection Type:: Clean-Voided Midstream Performed By: #### U A, UHCG #### [address] Urobilinogen,Urine Normal Normal Normal [facility] Comment on above: Order Comment: Name Collection Type:: Clean-Voided Midstream Performed By: #### U A, UHCG #### [address] Urine clarity by refractomet ry automatedOrdered By: Elier Jackson on 02-06-2023 Clarity Refractometry automated (U) Clear Clear [facility] Urine glucose measurement by automated test strip (mass/volume)Ordered By: Elier Jackson on 02-06-2023 Glucose Auto test strip (U) [Mass/Vol] Normal mg/dL Normal [facility] Urine hemoglobin detection b y automated test stripOrdered By: Elier Jackson on 02-06-2023 Hemoglobin Auto test strip Ql (U) Negative Negative [facility] Urine leukocyte esterase det ection by automated test stripOrdered By: Elier Jackson on 02-06-2023 Leukocyte esterase Auto test strip Ql (U) Negative Negative [facility] Urine pH measurement by auto mated test stripOrdered By: Elier Jackson on 02-06-2023 pH (U) 7.0 [pH] Normal 5.0-9.0 [facility] Comment on above: Order Comment: Name Collection Type:: Clean-Voided Midstream Performed By: #### U A, CG #### [address] Urobilinogen Auto test strip (U) [Mass/Vol]Ordered By: Elier Jackson on 02-06-2023 Urobilinogen (U) [Mass/Vol] Normal mg/dL Normal [facility] Alanine aminotransferase [En zymatic activity/volume] in Serum or PlasmaOrdered By: Elier Jackson on 02-05-2023 ALT [Catalytic activity/Vol] 13 U/L Normal 7-52 [facility] Comment on above: Performed By: #### H CGQNT #### [facility] [address] [place] [address] [place] Albumin [Mass/volume] in Ser um or Plasma by Bromocresol green (BCG) dye binding methoOrdered By: Elier Jackson on 02-05-2023 Albumin BCG dye [Mass/Vol] 4.2 g/dL 3.5-5.7 [facility] Alkaline phosphatase [Enzyma tic activity/volume] in Serum or PlasmaOrdered By: Elier Jackson on 02-05-2023 ALP [Catalytic activity/Vol] 52 U/L Normal 34-104 [facility] Comment on above: Performed By: #### H CGQNT #### [facility] [address] [place] [address] [place] Aspartate aminotransferase [ Enzymatic activity/volume] in Serum or PlasmaOrdered By: Elier Jackson on 02-05-2023 AST [Catalytic activity/Vol] 12 U/L Low 13-39 [facility] Comment on above: Performed By: #### H CGQNT #### [address] Automated basophil %Ordered By: Elier Jackson on 02-05-2023 Basophils/100 WBC (Bld) 1.4 % Normal . [facility] Comment on above: Performed By: #### H EPATIC, LIPASE, BMP, CBC #### [address] Automated basophil countOrde red By: Elier Jackson on 02-05-2023 Basophils (Bld) [#/Vol] 0.1 10*3/uL Normal 0.0-0.2 [facility] Comment on above: Result Comment: PERF ORMED BY: [place] [address] PATHOLOGIST RIPRAP MAN FARNAZ ZULETA M.D. Performed By: #### H EPATIC, LIPASE, BMP, CBC #### [address] Automated blood monocyte cou ntOrdered By: Elier Jackson on 02-05-2023 Monocytes (Bld) [#/Vol] 0.7 10*3/uL Normal 0.0-0.8 [facility] Comment on above: Performed By: #### H EPATIC, LIPASE, BMP, CBC #### [address] Automated eosinophil %Ordere d By: Elier Jackson on 02-05-2023 Eosinophils/100 WBC (Bld) 1.5 % Normal . [facility] Comment on above: Performed By: #### H EPATIC, LIPASE, BMP, CBC #### [address] Automated eosinophil countOr dered By: Elier Jackson on 02-05-2023 Eosinophils (Bld) [#/Vol] 0.1 10*3/uL Normal 0.0-0.45 [facility] Comment on above: Performed By: #### H EPATIC, LIPASE, BMP, CBC #### [address] Automated monocyte %Ordered By: Elier Jackson on 02-05-2023 Monocytes/100 WBC (Bld) 8.4 % Normal . [facility] Comment on above: Performed By: #### H EPATIC, LIPASE, BMP, CBC #### [facility] [address] Automated neutrophil %Ordere d By: Elier Jackson on 02-05-2023 Neutrophils/100 WBC (Bld) 44.4 % Normal . [facility] Comment on above: Performed By: #### H EPATIC, LIPASE, BMP, CBC #### [facility] [address] Basic Metabolic Panelon 01-12 Creatinine Clr Calc Pharmacy 115.62 Normal [facility] Comment on above: Performed By: #### H CGQNT #### [address] GFR/1.73 sq M.predicted MDRD (S/P/Bld) [Vol rate/Area] mL/min/{1.73_m2} Normal [facility] Comment on above: Performed By: #### H CGQNT #### [facility] [address] [place] [address] Bilirubin.direct [Mass/volum e] in Serum or PlasmaOrdered By: Elier Jackson on 02-05-2023 Bilirubin.direct [Mass/Vol] 0.10 mg/dL 0.03-0.18 [facility] Bilirubin.total [Mass/volume ] in Serum or PlasmaOrdered By: Elier Jackson on 02-05-2023 Bilirubin [Mass/Vol] 0.3 mg/dL Normal 0.3-1.0 [facility] Comment on above: Performed By: #### H CGQNT #### [facility] [address] [place] [address] Calcium [Mass/volume] in Ser um or PlasmaOrdered By: Elier Jackson on 02-05-2023 Calcium [Mass/Vol] 9.2 mg/dL Normal 8.6-10.3 [facility] Comment on above: Performed By: #### H CGQNT #### [address] [place] [address] [place] Carbon dioxide, total [Moles /volume] in Serum or PlasmaOrdered By: Elier Jackson on 02-05-2023 CO2 [Moles/Vol] 21.5 mmol/L Normal 21.0-31.0 [facility] Comment on above: Performed By: #### H CGQNT #### [facility] [address] [place] [address] [place] Chloride [Moles/volume] in S binu or PlasmaOrdered By: Elier Jackson on 02-05-2023 Chloride [Moles/Vol] 107 mmol/L Normal 98-107 [facility] Comment on above: Performed By: #### H CGQNT #### [facility] [address] Choriogonadotropin.beta subu nit [Units/volume] in Serum or PlasmaOrdered By: Elier Jackson on 02-05-2023 HCG.beta subunit Qn m[IU]/mL [facility] Comment on above: Approximate Approxim ate hCG Gestational Age Range (mIU/ml) (weeks)0.2-1 5-50 1-2 50-500 2-3 100-5,000 3-4 500-10,000 4-5 1,000-50,000 5-6 10,000-100,000 6-8 15,000-200,000 8-12 10,000-100,000 HCG.beta subunit Qn Negative [facility] Complete Blood Count Auto Di ffon 02-05-2023 Mean Corpuscular HGB Conc 31.8 g/dL Low 32.0-35.0 [facility] Comment on above: Performed By: #### H EPATIC, LIPASE, BMP, CBC #### [facility] [address] [place] [address] [place] Monocytes/100 WBC (Bld) 17.33 % Normal 0.00-20.00 [facility] Comment on above: Performed By: #### H EPATIC, LIPASE, BMP, CBC #### [facility] [address] [place] [address] [place] NRBC% 0.1 /100{WBC} Normal 0-0.5 [facility] Comment on above: Performed By: #### H EPATIC, LIPASE, BMP, CBC #### [address] Creatinine [Mass/volume] in Serum or PlasmaOrdered By: Elier Jackson on 02-05-2023 Creatinine [Mass/Vol] 0.71 mg/dL Normal 0.60-1.20 [facility] Comment on above: Performed By: #### H CGQNT #### [address] Erythrocyte distribution wid th [Ratio] by Automated countOrdered By: Elier Jackson on 02-05-2023 Erythrocyte distribution width (RBC) [Ratio] 15.9 % High 11.9-15.3 [facility] Comment on above: Performed By: #### H EPATIC, LIPASE, BMP, CBC #### [place] [address] [place] Erythrocytes [#/volume] in B lood by Automated countOrdered By: Elier Jackson on 02-05-2023 RBC (Bld) [#/Vol] 4.78 10*6/uL Normal 3.60-5.00 [facility] Comment on above: Performed By: #### H EPATIC, LIPASE, BMP, CBC #### [address] Glucose [Mass/volume] in Ser um or PlasmaOrdered By: Elier Jackson on 02-05-2023 Glucose [Mass/Vol] 99 mg/dL Normal 70-100 [facility] Comment on above: ADA recommended refe rence rangeRandom Glucose Reference Range is dependent on time and content of last meal. Glucose of more than 200 mg/dL in a nonstressed, ambulatory subject supports the diagnosis of Diabetes Mellitus. Result Comment: [place] om Glucose Reference Range is dependent on time and content of last meal. Glucose of more than 200 mg/dL in a nonstressed, ambulatory subject supports the diagnosis of Diabetes Mellitus. ADA recommended reference range Performed By: #### H CGQNT #### [address] HCG,Qualitative Serumon 01-12 HCG,Qualitative Serum Negative Normal [facility] Comment on above: Result Comment: PERF ORMED BY: [place] [address] PATHOLOGIST RIPRAP MAN FARNAZ ZULETA M.D. Performed By: #### U HCG, ADDONUAPLUS #### [address] HCG,Quantitativeon 3 HCG,Quantitative < 0.60 Normal [facility] Comment on above: Result Comment: Appr oximate Approximate hCG Gestational Age Range (mIU/ml) (weeks) 0.2-1 5-50 1-2 50-500 2-3 100-5,000 3-4 500-10,000 4-5 1,000-50,000 5-6 10,000-100,000 6-8 15,000-200,000 8-12 10,000-100,000 PERFORMED BY: [place] [address] PATHOLOGIST RIPRAP MAN FARNAZ ZULETA M.D. Performed By: #### H CGQNT #### [address] Hematocrit [Volume Fraction] of Blood by Automated countOrdered By: Elier Jackson on 02-05-2023 Hematocrit (Bld) [Volume fraction] 37.3 % Normal 34.0-46.4 [facility] Comment on above: Performed By: #### H EPATIC, LIPASE, BMP, CBC #### [address] Hemoglobin [Mass/volume] in BloodOrdered By: Elier Jackson on 02-05-2023 Hemoglobin (Bld) [Mass/Vol] 11.8 g/dL Normal 11.8-15.4 [facility] Comment on above: Performed By: #### H EPATIC, LIPASE, BMP, CBC #### [address] Hepatic Panelon 02-05-2023 Albumin [Mass/Vol] 4.2 g/dL Normal 3.5-5.7 [facility] Comment on above: Performed By: #### H CGQNT #### [address] Bilirubin,Indirect 0.2 mg/dL Normal [facility] Comment on above: Performed By: #### H CGQNT #### [address] Bilirubin.indirect [Mass/Vol] 0.10 mg/dL Normal 0.03-0.18 [facility] Comment on above: Performed By: #### H CGQNT #### [address] Leukocytes [#/volume] correc flo for nucleated erythrocytes in Blood by Automated counOrdered By: Elier Jackson on 02-05-2023 WBC corrected for nucl RBC Auto (Bld) [#/Vol] 8.1 10*3/uL 3.8-11.6 [facility] Leukocytes [#/volume] in Blo od by Automated countOrdered By: Elier Jackson on 02-05-2023 WBC (Bld) [#/Vol] 8.1 10*3/uL Normal 3.8-11.6 [facility] Comment on above: Performed By: #### H EPATIC, LIPASE, BMP, CBC #### [facility] [address] [place] [address] Lipase [Enzymatic activity/v olume] in Serum or PlasmaOrdered By: Elier Jackson on 02-05-2023 Lipase [Catalytic activity/Vol] 40.0 U/L Normal 11.0-82.0 [facility] Comment on above: Result Comment: PERF ORMED BY: [place] [address] PATHOLOGIST RIPRAP MAN FARNAZ ZULETA M.D. Performed By: #### H CGQNT #### [address] Lymphocytes [#/volume] in Bl ood by Automated countOrdered By: Elier Jackson on 02-05-2023 Lymphocytes (Bld) [#/Vol] 3.6 10*3/uL Normal 1.00-4.8 [facility] Comment on above: Performed By: #### H EPATIC, LIPASE, BMP, CBC #### [facility] [address] Lymphocytes/100 leukocytes i n Blood by Automated countOrdered By: Elier Jackson on 02-05-2023 Lymphocytes/100 WBC (Bld) 44.3 % Normal . [facility] Comment on above: Performed By: #### H EPATIC, LIPASE, BMP, CBC #### [facility] [address] [place] [address] MCH [Entitic mass] by Automa flo countOrdered By: Elier Jackson on 02-05-2023 MCH (RBC) [Entitic mass] 24.8 pg Normal 24.7-34.3 [facility] Comment on above: Performed By: #### H EPATIC, LIPASE, BMP, CBC #### [facility] [address] [place] [address] MCHC Auto (RBC) [Mass/Vol]Or dered By: Elier Jackson on 02-05-2023 MCHC (RBC) [Mass/Vol] 31.8 g/dL 32.0-35.0 [facility] MCV [Entitic volume] by Auto mated countOrdered By: Elier Jackson on 02-05-2023 MCV (RBC) [Entitic vol] 78.1 fL Low 80-100 [facility] Comment on above: Performed By: #### H EPATIC, LIPASE, BMP, CBC #### [facility] [address] [place] [address] Monocyte distribution width [Entitic volume] in Blood by AutomatedOrdered By: Elier Jackson on 02-05-2023 Monocyte distribution width Auto (Bld) [Entitic vol] 17.33 % 0.00-20.00 [facility] Neutrophils [#/volume] in Bl ood by Automated countOrdered By: Elier Jackson on 02-05-2023 Neutrophils (Bld) [#/Vol] 3.6 10*3/uL Normal 1.8-7.7 [facility] Comment on above: Performed By: #### H EPATIC, LIPASE, BMP, CBC #### [address] No Panel InformationOrdered By: Elier Jackson on 02-05-2023 Estimated GFR (CKD-EPI) > 60.0 mL/Min [facility] Creatinine Clearance (Chem 115.62 [facility] Nucleated erythrocytes [Pres ence] in Blood by Automated countOrdered By: Elier Jackson on 02-05-2023 Nucleated RBC Auto Ql (Bld) 0.1 /100{WBC} 0-0.5 [facility] Platelet mean volume [Entiti c volume] in Blood by Automated countOrdered By: Elier Jackson on 02-05-2023 Platelet mean volume (Bld) [Entitic vol] 8.0 fL Normal 6.3-10.7 [facility] Comment on above: Performed By: #### H EPATIC, LIPASE, BMP, CBC #### [address] Platelets [#/volume] in Bloo d by Automated countOrdered By: Elier Jackson on 02-05-2023 Platelets (Bld) [#/Vol] 398 10*3/uL Normal 150-450 [facility] Comment on above: Performed By: #### H EPATIC, LIPASE, BMP, CBC #### [facility] [address] [place] [address] [place] Potassium [Moles/volume] in Serum or PlasmaOrdered By: Elier Jackson on 02-05-2023 Potassium [Moles/Vol] 3.4 mmol/L Low 3.5-5.1 [facility] Comment on above: Performed By: #### H CGQNT #### [address] Protein [Mass/volume] in Ser um or PlasmaOrdered By: Elier Jackson on 02-05-2023 Protein [Mass/Vol] 7.2 g/dL Normal 6.4-8.9 [facility] Comment on above: Performed By: #### H CGQNT #### [address] Serum globulin measurement b y calculation (mass/volume)Ordered By: Elier Jackson on 02-05-2023 Globulin (S) [Mass/Vol] 3.0 g/dL Normal [facility] Comment on above: Performed By: #### H CGQNT #### [address] Serum or plasma albumin/glob ulin mass ratioOrdered By: Elier Jackson on 02-05-2023 Albumin/Globulin [Mass ratio] 1.4 {ratio} Normal [facility] Comment on above: Performed By: #### H CGQNT #### [address] Serum or plasma anion gap de terminationOrdered By: Elier Jackson on 02-05-2023 Anion gap [Moles/Vol] 11.9 mmol/L Normal 6.0-15.0 [facility] Comment on above: Performed By: #### H CGQNT #### [address] Serum or plasma non-glucuron idated bilirubin measurement (mass/volume)Ordered By: Elier Jackson on 02-05-2023 Bilirubin.indirect [Mass/Vol] 0.2 mg/dL [facility] Sodium [Moles/volume] in Ser um or PlasmaOrdered By: Elier Jackson on 02-05-2023 Sodium [Moles/Vol] 137 mmol/L Normal 136-145 [facility] Comment on above: Performed By: #### H CGQNT #### [address] Urea nitrogen [Mass/volume] in Serum or PlasmaOrdered By: Elier Jackson on 02-05-2023 Urea nitrogen [Mass/Vol] 6 mg/dL Low 7-25 [facility] Comment on above: Performed By: #### H CGQNT #### [address] GENITAL CULTUREon 08-01-2022 Genital Culture, Routine Final report Abnormal [facility] Comment on above: Result Comment: Spec imen stability note: A swab transport (ie., ESwab, Amies agar gel) received by the lab more than 24 hours after collection may result in reduced recovery of Neisseria gonorrhoeae (GC). (This is informational only and may not apply to this specimen.) Performed By: #### C XGENIT #### [facility] [address] [place] [address] Dr. Rod Ramirez Result 1 Comment Abnormal [facility] Comment on above: Result Comment: Beta hemolytic [...] (CLSI) Performed By: #### C XGENIT #### [facility] [address] [place] [address] Dr. Rod Ramirez Result 2 Comment Normal [facility] Comment on above: Result Comment: Rout ine genital rashid. Light growth Performed By: #### C XGENIT #### [facility] [address] [place] [address] Dr. Rod Ramirez CBC AUTO DIFFon 07-28-2022 BASO # 0.0 103/ul Normal 0.0-0.1 [facility] Comment on above: Performed By: #### C BC #### [facility] [address] [place] [address] Dr. Rod Ramirez Basophils/100 WBC (Bld) 0.4 % Normal 0.2-2.0 [facility] Comment on above: Performed By: #### C BC #### [facility] [address] [place] [address] Dr. Rod Ramirez EO # 0.1 103/ul Normal 0.0-0.7 [facility] Comment on above: Performed By: #### C BC #### [facility] [address] [place] [address] Dr. Rod Ramirez Eosinophils/100 WBC (Bld) 1.5 % Normal 0.9-7.0 [facility] Comment on above: Performed By: #### C BC #### [facility] [address] [place] [address] Dr. Rod Ramirez Erythrocyte distribution width (RBC) [Ratio] 12.9 % Normal 11.0-15.0 [facility] Comment on above: Performed By: #### C BC #### [facility] [address] [place] [address] Dr. Rod Ramirez Hematocrit (Bld) [Volume fraction] 40.9 % Normal 36.0-48.0 [facility] Comment on above: Performed By: #### C BC #### [facility] [address] [place] [address] Dr. Rod Ramirez Hemoglobin (Bld) [Mass/Vol] 13.7 g/dL Normal 12.0-16.0 [facility] Comment on above: Performed By: #### C BC #### [facility] [address] [place] [address] Dr. Rod Ramirez IG # 0.02 10e3/ul Normal 0.00-0.03 [facility] Comment on above: Performed By: #### C BC #### [facility] [address] [place] [address] Dr. Rod Ramirez IG % 0.3 % Normal 0.0-0.5 [facility] Comment on above: Performed By: #### C BC #### [facility] [address] [place] [address] Dr. Rod Ramirez LYMPH # 1.6 103/ul Normal 1.2-3.8 [facility] Comment on above: Performed By: #### C BC #### [facility] [address] [place] [address] Dr. Rod Ramirez Lymphocytes/100 WBC (Bld) 23.6 % Normal 20.5-60.0 [facility] Comment on above: Performed By: #### C BC #### [facility] [address] [place] [address] Dr. Rod Ramirez MANUAL DIFF REQ NO Normal [facility] Comment on above: Performed By: #### C BC #### [facility] [address] [place] [address] Dr. Rod Ramirez MCH (RBC) [Entitic mass] 27.7 pg Normal 26.7-34.0 [facility] Comment on above: Performed By: #### C BC #### [facility] [address] [place] [address] Dr. Rod Ramirez MCHC (RBC) [Mass/Vol] 33.5 g/dL Normal 29.9-35.2 [facility] Comment on above: Performed By: #### C BC #### [facility] [address] [place] [address] Dr. Rod Ramirez MCV (RBC) [Entitic vol] 82.6 fL Normal 81.0-99.0 [facility] Comment on above: Performed By: #### C BC #### [facility] [address] [place] [address] Dr. Rod Ramirez MONO # 0.4 103/ul Normal 0.3-0.8 [facility] Comment on above: Performed By: #### C BC #### [facility] [address] [place] [address] Dr. Rod Ramirez Monocytes/100 WBC (Bld) 6.4 % Normal 1.7-12.0 [facility] Comment on above: Performed By: #### C BC #### [facility] [address] [place] [address] Dr. Rod Ramirez NEUT # 4.6 103/ul Normal 1.4-6.5 [facility] Comment on above: Performed By: #### C BC #### [facility] [address] [place] [address] Dr. Rod Ramirez Neutrophils/100 WBC (Bld) 67.8 % Normal 43.0-75.0 [facility] Comment on above: Performed By: #### C BC #### [facility] [address] [place] [address] Dr. Rod Ramirez Platelet mean volume (Bld) [Entitic vol] 9.4 fL Critically low 9.5-13.5 [facility] Comment on above: Performed By: #### C BC #### [facility] [address] [place] [address] Dr. Rod Ramirez PLT 439 103/ul Normal 150-450 [facility] Comment on above: Performed By: #### C BC #### [facility] [address] [place] [address] Dr. Rod Ramirez RBC 4.95 106/ul Normal 4.20-5.40 [facility] Comment on above: Performed By: #### C BC #### [facility] [address] [place] [address] Dr. Rod Ramirez WBC 6.7 103/ul Normal 4.0-11.0 [facility] Comment on above: Performed By: #### C BC #### [facility] [address] [place] [address] Dr. Rod Ramirez PREG HCG QUALon 07-28-2022 , QUAL Negative Normal NEGATIVE [facility] Comment on above: Performed By: #### P REG #### [facility] [address] [place] [address] Dr. Rod Ramirez PROF CHEM 8 (BAS METB)on Anion gap [Moles/Vol] 15.5 mmol/L Normal [facility] Comment on above: Performed By: #### B MP #### [facility] [address] [place] [address] Dr. Rod Ramirez Calcium [Mass/Vol] 9.0 mg/dL Normal 8.5-10.1 [facility] Comment on above: Performed By: #### B MP #### [facility] [address] [place] [address] Dr. Rod Ramirez Chloride [Moles/Vol] 103 mmol/L Normal 98-107 [facility] Comment on above: Performed By: #### B MP #### [facility] [address] [place] [address] Dr. Rod Ramirez CO2 [Moles/Vol] 23.9 mmol/L Normal 21.0-32.0 [facility] Comment on above: Performed By: #### B MP #### [facility] [address] [address] [address] Rod Ramirez Creatinine [Mass/Vol] 0.79 mg/dL Normal 0.55-1.02 [facility] Comment on above: Performed By: #### B MP #### [facility] [address] [address] [address] Rod Ramirez EGFR-AF UKRAINIAN >60 Normal >=60 [facility] Comment on above: Performed By: #### B MP #### [facility] [address] [address] [address] Rod Ramirez EGFR-NON AF UKRAINIAN >60 Normal >=60 [facility] Comment on above: Performed By: #### B MP #### [facility] [address] [address] [address] Rod Ramirez Glucose [Mass/Vol] 108 mg/dL Critically high 74-106 [facility] Comment on above: Performed By: #### B MP #### [facility] [address] [address] [address] Rod Ramirez Potassium [Moles/Vol] 3.4 mmol/L Critically low 3.5-5.1 [facility] Comment on above: Performed By: #### B MP #### [facility] [address] [address] [address] Rod Ramirez Sodium [Moles/Vol] 139 mmol/L Normal 136-145 [facility] Comment on above: Performed By: #### B MP #### [facility] [address] [address] [address] Rod Ramirez Urea nitrogen [Mass/Vol] 7.0 mg/dL Normal 7.0-18.0 [facility] Comment on above: Performed By: #### B MP #### [facility] [address] [address] [address] Rod Ramirez Urea nitrogen/Creatinine [Mass ratio] 8.9 mg/mg Normal [facility] Comment on above: Performed By: #### B MP #### [facility] [address] [address] [address] Rod Ramirez US PELVIS TRANSVAGon 023 [...] AUBREY BURKS Date: 2022-07-28 07:46 Normal [facility] WET PREPon 07-28-2022 CLUE CELLS NONE SEEN Normal NONE SEEN [facility] Comment on above: Performed By: #### W P #### [facility] [address] [address] [address] Rod Ramirez FUNGAL ELEMENTS NONE SEEN Normal NONE SEEN [facility] Comment on above: Performed By: #### W P #### [facility] [address] [address] [address] Rod Ramirez RBC -WET PREP RARE Abnormal NONE SEEN [facility] Comment on above: Performed By: #### W P #### [facility] [address] [address] [address] Rod Ramirez TRICHOMONAS NONE SEEN Normal NONE SEEN [facility] Comment on above: Performed By: #### W P #### [facility] [address] [address] [address] Rod Ramirez WBC- WET PREP RARE Abnormal NONE SEEN [facility] Comment on above: Performed By: #### W P #### [facility] [address] [address] [address] Rod Ramirez WET PREP BACTERIA NONE SEEN Normal NONE SEEN [facility] Comment on above: Performed By: #### W P #### [facility] [address] [address] [address] Rod Morales 04-30-2022 CNPN Telephone (HEMASA) LIVAI NOYOLA ([id number]) 1985 F Date Time Provider Department 04/30/22 [...] Fully Assessed Reason for Visit: Lab Orders [6198] Primary Visit Diagnosis:Iron deficiency anemia due to chronic blood loss [D50.0] Order(s):COMP METABOLIC PANEL [SQCMP] Order #: [id number] FUTURE Prescriptions as of 05/03/2022 - ALPRAZolam [...] Status:Closed by GIL NI on 05/03/22 Normal [facility] Anisocytosis LM Ql (Bld)Orde red By: Yevgeniy Cabrera on 04-28-2022 Anisocytosis Ql (Bld) Marked [facility] Automated erythrocytes count in urine sediment (number/area)Ordered By: Yevgeniy Cabrera on 04-28-2022 RBC Auto (Urine sed) [#/Area] None seen [HPF] 0-4 [facility] Automated leukocytes count i n urine sediment (number/area)Ordered By: Yevgeniy Cabrera on 04-28-2022 WBC Auto (Urine sed) [#/Area] 3-4 [HPF] 0-4 [facility] Basophils Auto (Bld) [#/Vol] Ordered By: Yevgeniy Carbera on 04-28-2022 Basophils (Bld) [#/Vol] 0.1 10*3/uL 0.0-0.2 [facility] Basophils/100 WBC Auto (Bld) Ordered By: Yevgeniy Cabrera on 04-28-2022 Basophils/100 WBC (Bld) 1.0 % . F [facility] Bilirubin Test strip Ql (U)O rdered By: Yevgeniy Cabrera on 04-28-2022 Bilirubin Ql (U) Negative Negative [facility] Body fluid albumin measureme nt (mass/volume)Ordered By: Yevgeniy Cabrera on 04-28-2022 Albumin (Body fld) [Mass/Vol] 3.8 g/dL 3.2-5.5 [facility] Color Auto (U)Ordered By: Marcus Cabrera on 04-28-2022 Color (U) Yellow Yellow [facility] Creatinine and Glomerular fi ltration rate.predicted panel (S/P/Bld)Ordered By: Yevgeniy Cabrera on 04-28-2022 Creatinine [Mass/Vol] 0.62 mg/dL 0.44-1.03 [facility] Eosinophils Auto (Bld) [#/Vo l]Ordered By: Yevgeniy Cabrera on 04-28-2022 Eosinophils (Bld) [#/Vol] 0.1 10*3/uL 0.0-0.45 [facility] Eosinophils/100 WBC Auto (Bl d)Ordered By: Yevgeniy Cabrera on 04-28-2022 Eosinophils/100 WBC (Bld) 1.0 % . [facility] Erythrocyte distribution wid th Auto (RBC) [Ratio]Ordered By: Yevgeniy Cabrera on 04-28-2022 Erythrocyte distribution width (RBC) [Ratio] 27.1 % 11.9-15.3 [facility] Estimated glomerular filtrat ion rate (GFR) non- AmericanOrdered By: Yevgeniy Cabrera on 04-28-2022 GFR/1.73 sq M.predicted among non-blacks MDRD (S/P/Bld) [Vol rate/Area] > 60 mL/Min [facility] Globulin Calc (S) [Mass/Vol] Ordered By: Yevgeniy Cabrera on 04-28-2022 Globulin (S) [Mass/Vol] 3.1 g/dL F [facility] HCG ( test) IA.rapi d Ql (U)Ordered By: Yevgeniy Cabrera on 04-28-2022 HCG ( test) Ql (U) Negative [facility] Hematocrit Auto (Bld) [Volum e fraction]Ordered By: Yevgeniy Cabrera on 04-28-2022 Hematocrit (Bld) [Volume fraction] 39.4 % 34.0-46.4 [facility] Hemoglobin [Mass/volume] in BloodOrdered By: Yevgeniy Cabrera on 04-28-2022 Hemoglobin (Bld) [Mass/Vol] 12.3 g/dL 11.8-15.4 [facility] Hypochromia LM Ql (Bld)Order ed By: Yevgeniy Cabrera on 04-28-2022 Hypochromia Ql (Bld) Slight [facility] Ketones Auto test strip (U) [Mass/Vol]Ordered By: Yevgeniy Cabrera on 04-28-2022 Ketones (U) [Mass/Vol] Negative Negative Fi [facility] - Hematology and Cell countsOrdered By: Yevgeniy Cabrera on 04-28-2022 Nucleated RBC/100 WBC (Bld) [Ratio] 0.0 % 0-0.5 [facility] Laboratory - UrinalysisOrder ed By: Yevgeniy Cabrera on 04-28-2022 Hyaline casts LM Ql (Urine sed) None seen [LPF] 0-8 [facility] Leukocytes [#/volume] in Blo od by Automated countOrdered By: Yevgeniy Cabrera on 04-28-2022 WBC (Bld) [#/Vol] 7.9 10*3/uL 4.5-11.0 [facility] Lymphocytes Auto (Bld) [#/Vo l]Ordered By: Yevgeniy Cabrera on 04-28-2022 Lymphocytes (Bld) [#/Vol] 2.3 10*3/uL 1.00-4.8 [facility] Lymphocytes/100 WBC Auto (Bl d)Ordered By: Yevgeniy Cabrera on 04-28-2022 Lymphocytes/100 WBC (Bld) 28.9 % . [facility] MCH Auto (RBC) [Entitic mass ]Ordered By: Yevgeniy Cabrera on 04-28-2022 MCH (RBC) [Entitic mass] 23.3 pg 24.7-34.3 [facility] MCHC Auto (RBC) [Mass/Vol]Or dered By: Yevgeniy Cabrera on 04-28-2022 MCHC (RBC) [Mass/Vol] 31.3 g/dL 32.0-35.0 [facility] MCV Auto (RBC) [Entitic vol] Ordered By: Yevgeniy Cabrera on 04-28-2022 MCV (RBC) [Entitic vol] 74.5 fL 80-[address] [facility] Monocytes Auto (Bld) [#/Vol] Ordered By: Yevgeniy Cabrera on 04-28-2022 Monocytes (Bld) [#/Vol] 0.4 10*3/uL 0.0-0.8 [facility] Monocytes/100 WBC Auto (Bld) Ordered By: Yevgeniy Cabrera on 04-28-2022 Monocytes/100 WBC (Bld) 4.5 % . F [facility] Neutrophils Auto (Bld) [#/Vo l]Ordered By: Yevgeniy Cabrera on 04-28-2022 Neutrophils (Bld) [#/Vol] 5.1 10*3/uL 1.8-7.7 [facility] Neutrophils/100 WBC Auto (Bl d)Ordered By: Yevgeniy Cabrera on 04-28-2022 Neutrophils/100 WBC (Bld) 64.6 % . [facility] Nitrite Test strip Ql (U)Ord ered By: Yevgeniy Cabrera on 04-28-2022 Nitrite Ql (U) Negative Negative [facility] No Panel InformationOrdered By: Yevgeniy Cabrera on 04-28-2022 Estimated GFR () > 60 mL/Min [facility] Comment on above: GFR estimated refere nce range: According to KDOQI guidelines, <60 ml/min/1.73m2 is sufficient to diagnose a patient with chronic kidney disease. Pharmacy Creatinine Clearance (Chem 132.36 [facility] Slides for Pathologist Review Ordered path review [facility] Ovalocyte detectionOrdered B y: Yevgeniy Cabrera on 04-28-2022 Ovalocytes LM Ql (Bld) Moderate [facility] Platelet adequacy [Presence] in Blood by Light microscopyOrdered By: Yevgeniy Cabrera on 04-28-2022 Platelets LM Ql (Bld) Normal Normal [facility] Platelet mean volume Auto (B ld) [Entitic vol]Ordered By: Yevgeniy Cabrera on 04-28-2022 Platelet mean volume (Bld) [Entitic vol] 7.4 fL 6.3-10.7 [facility] Platelet morphology finding [Identifier] in BloodOrdered By: Yevgeniy Cabrera on 04-28-2022 Platelet morphology finding Nom (Bld) Normal Normal [facility] Platelets Auto (Bld) [#/Vol] Ordered By: Yevgeniy Cabrera on 04-28-2022 Platelets (Bld) [#/Vol] 329 10*3/uL 150-450 [facility] Poikilocytosis [Presence] in Blood by Light microscopyOrdered By: Yevgeniy Cabrera on 04-28-2022 Poikilocytosis LM Ql (Bld) Moderate [facility] Polychromasia [Presence] in Blood by Light microscopyOrdered By: Yevgeniy Cabrera on 04-28-2022 Polychromasia LM Ql (Bld) Slight [facility] Protein Auto test strip (U) [Mass/Vol]Ordered By: Yevgeniy Cabrera on 04-28-2022 Protein (U) [Mass/Vol] Negative Negative [facility] Protein [Mass/volume] in Ser um or PlasmaOrdered By: Yevgeniy Cabrera on 04-28-2022 Protein [Mass/Vol] 6.9 g/dL 6.1-7.9 [facility] RBC Auto (Bld) [#/Vol]Ordere d By: Yevgeniy Cabrera on 04-28-2022 RBC (Bld) [#/Vol] 5.29 10*6/uL 3.60-5.00 [facility] RBC morphologyOrdered By: Marcus oli Rick on 04-28-2022 RBC morphology finding Nom (Bld) N/A [facility] Serum or plasma alanine syed otransferase measurement without P-5'-P (enzymatic activiOrdered By: Yevgeniy Cabrera on 04-28-2022 ALT No additional P-5'-P [Catalytic activity/Vol] 43 U/L 10-60 [facility] Serum or plasma albumin/glob ulin mass ratioOrdered By: Yevgeniy Cabrera on 04-28-2022 Albumin/Globulin [Mass ratio] 1.2 {ratio} [facility] Serum or plasma alkaline zeeshan sphatase measurement (enzymatic activity/volume)Ordered By: Yevgeniy Cabrera on 04-28-2022 ALP [Catalytic activity/Vol] 65 U/L 32-92 [facility] Serum or plasma anion gap de terminationOrdered By: Yevgeniy Cabrera on 04-28-2022 Anion gap [Moles/Vol] 14.6 mmol/L 6.0-15.0 [facility] Serum or plasma aspartate am inotransferase measurement (enzymatic activity/volume)Ordered By: Yevgeniy Cabrera on 04-28-2022 AST [Catalytic activity/Vol] 26 U/L 10-42 [facility] Serum or plasma calcium donaldo urement (mass/volume)Ordered By: Yevgeniy Cabrera on 04-28-2022 Calcium [Mass/Vol] 9.3 mg/dL 8.2-10.2 [facility] Serum or plasma chloride claudia surement (moles/volume)Ordered By: Yevgeniy Cabrera on 04-28-2022 Chloride [Moles/Vol] 105 mmol/L 95-114 [facility] Serum or plasma glucose donaldo urement (mass/volume)Ordered By: Yevgeniy Cabrera on 04-28-2022 Glucose [Mass/Vol] 112 mg/dL 70-100 [facility] Comment on above: ADA recommended refe rence rangeRandom Glucose Reference Range is dependent on time and content of last meal. Glucose of more than 200 mg/dL in a nonstressed, ambulatory subject supports the diagnosis of Diabetes Mellitus. Serum or plasma potassium me asurement (moles/volume)Ordered By: Yevgeniy Cabrera on 04-28-2022 Potassium [Moles/Vol] 3.7 mmol/L 3.5-5.1 [facility] Serum or plasma sodium measu rement (moles/volume)Ordered By: Yevgeniy Cabrera on 04-28-2022 Sodium [Moles/Vol] 137 mmol/L 136-146 [facility] Serum or plasma total biliru bin measurement (mass/volume)Ordered By: Yevgeniy Cabrera on 04-28-2022 Bilirubin [Mass/Vol] 0.5 mg/dL 0.3-1.2 [facility] Serum or plasma total carbon dioxide measurement (moles/volume)Ordered By: Yevgeniy Cabrera on 04-28-2022 CO2 [Moles/Vol] 21.1 mmol/L 22.0-30.0 [facility] Serum or plasma urea nitroge n measurement (mass/volume)Ordered By: Yevgeniy Cabrera on 04-28-2022 Urea nitrogen [Mass/Vol] 5 mg/dL 9-23 [facility] Specific gravity Auto test s trip (U) [Rel density]Ordered By: Yevgeniy Cabrera on 04-28-2022 Specific gravity (U) [Rel density] 1.005 1.001-1.030 [facility] Squamous epithelial cells de tection in urine sediment by light microscopyOrdered By: Yevgeniy Cabrera on 04-28-2022 Epithelial cells.squamous LM Ql (Urine sed) 0-1 [HPF] 0-2 [facility] Teardrop cell detectionOrder ed By: Yevgeniy Cabrera on 04-28-2022 Dacrocytes LM Ql (Bld) Slight [facility] Urine bacteria detection by automated methodOrdered By: Yevgeniy Cabrera on 04-28-2022 Bacteria Auto Ql (U) None seen None Seen [facility] Urine clarity by refractomet ry automatedOrdered By: Yevgeniy Cabrera on 04-28-2022 Clarity Refractometry automated (U) Cloudy Clear [facility] Urine glucose measurement by automated test strip (mass/volume)Ordered By: Yevgeniy Cabrera on 04-28-2022 Glucose Auto test strip (U) [Mass/Vol] Normal mg/dL Normal [facility] Urine hemoglobin detection b y automated test stripOrdered By: Yevgeniy Cabrera on 04-28-2022 Hemoglobin Auto test strip Ql (U) Negative Negative [facility] Urine leukocyte esterase det ection by automated test stripOrdered By: Yevgeniy Cabrera on 04-28-2022 Leukocyte esterase Auto test strip Ql (U) 1+ Negative [facility] Urobilinogen Auto test strip (U) [Mass/Vol]Ordered By: Yevgeniy Cabrera on 04-28-2022 Urobilinogen (U) [Mass/Vol] Normal mg/dL Normal [facility] pH Auto test strip (U)Ordere d By: Yevgeniy Cabrera on 04-28-2022 pH (U) 6.5 [pH] 5.0-9.0 [facility] ALLIED HEALTHon 04-09-2022 ALLIED HEALTH HNO ID: [id number] Author: Donald Villegas Service: ? Author Type: 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 Type: [...] date. Will follow up then. SIGNATURE: Stephenie Shu 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 PATIENT NAME: Livia Noyola DATE: April 09, 2022 TIME: 2:21 PM PAGER/CONTACT #: Angela [facility] Andrew 03-19-2022 FRIDA Telephone (NCCAP) MAGALILIVIA Regino ([id number]) 1985 F Date Time Provider Department 03/19/22 [...] Date Reviewed: 03/10/2022 Reviewed by: Gil Ni APRN.AIRCRAFT ENGINE MECHANIC SUPERVISOR - Fully Assessed Reason for Visit: [...] iron [K90.9] 10/27/2020 Encounter Status:Closed by CORBIN [facility] ([id number]) 1985 F Date Time Provider Department 03/19/22 FINANCIAL NAVIGATOR JOHNY JORDANMARILOUChi During your visit today, we recorded the following information about you: Sparkle Chicas Deja [facility] 03/19/2022 4:48 PM Signed 1st report of treatment-Non oncology regimen (Venofer) No FA available for this treatment at this time. Allergies As of Date: 03/19/2022 Noted Allergy Reaction MORPHINE 06/20/2018 14 - Other: See Comments Comments: Spasms Date Reviewed: 03/10/2022 Reviewed by: Gil Ni APRN.AIRCRAFT ENGINE MECHANIC SUPERVISOR - Fully Assessed Reason for Visit: Benefits Investigation [1758] Prescriptions as of 03/19/2022 - ALPRAZolam (XANAX) [...] of iron [K90.9] 10/27/2020 Encounter Status:Closed by [facility], SPARKLE Chicas on 03/19/22 [facility] 03-15-2022 CNPN Telephone (BK) LIVIA NOYOLA ([id number]) 1985 F Date Time Provider Department 03/15/22 [...] Date Reviewed: 03/10/2022 Reviewed by: Gil Ni APRN.AIRCRAFT ENGINE MECHANIC SUPERVISOR - Fully Assessed Reason for Visit: [...] Status:Closed by SHARON SAAVEDRA on 03/15/22 Normal [facility] CBC W Auto Differential pane l (Bld)on 03-10-2022 Basophils (Bld) [#/Vol] 0.05 10*3/uL Normal <0.11 [facility] Comment on above: Order Comment: Speci men Type: BLOOD SPECIMEN Ordering Facility: [facility] Address: [address] [place] [address] Performed By: #### 5 7021-8 #### [facility] CLIA [id number] [address] [place] [address] Basophils/100 WBC (Bld) 0.8 % Normal [facility] Comment on above: Order Comment: Speci men Type: BLOOD SPECIMEN Ordering Facility: [facility] Address: [address] [place] [address] Performed By: #### 5 7021-8 #### [facility] CLIA [id number] [address] [place] [address] Differential cell count method Nom (Bld) Auto Normal [facility] Comment on above: Order Comment: Speci men Type: BLOOD SPECIMEN Ordering Facility: [facility] Address: [address] [place] [address] Performed By: #### 5 7021-8 #### [facility] CLIA [id number] [address] [place] [address] Eosinophils (Bld) [#/Vol] 0.15 10*3/uL Normal <0.46 [facility] Comment on above: Order Comment: Speci men Type: BLOOD SPECIMEN Ordering Facility: [facility] Address: [address] [place] [address] Performed By: #### 5 7021-8 #### [facility] CLIA [id number] [address] [place] [address] Eosinophils/100 WBC (Bld) 2.3 % Normal [facility] Comment on above: Order Comment: Speci men Type: BLOOD SPECIMEN Ordering Facility: [facility] Address: [address] [place] [address] Performed By: #### 5 7021-8 #### [facility] CLIA [id number] [address] [place] [address] Erythrocyte distribution width (RBC) [Ratio] 17.4 % High 11.5-15.0 [facility] Comment on above: Order Comment: Speci men Type: BLOOD SPECIMEN Ordering Facility: [facility] Address: [address] [place] [address] Performed By: #### 5 7021-8 #### [facility] CLIA [id number] [address] [place] [address] Hematocrit (Bld) [Volume fraction] 29.4 % Low 36.0-46.0 [facility] Comment on above: Order Comment: Speci men Type: BLOOD SPECIMEN Ordering Facility: [facility] Address: [address] [place] [address] Performed By: #### 5 7021-8 #### [facility] CLIA [id number] [address] [place] [address] Hemoglobin (Bld) [Mass/Vol] 8.5 g/dL Low 11.5-15.5 [facility] Comment on above: Order Comment: Speci men Type: BLOOD SPECIMEN Ordering Facility: [facility] Address: [address] [place] [address] Performed By: #### 5 7021-8 #### [facility] CLIA [id number] [address] [place], [place] [address] IMMATURE GRAN % 0.3 % Normal [facility] Comment on above: Order Comment: Speci men Type: BLOOD SPECIMEN Ordering Facility: [facility] Address: [address] [place] [address] Performed By: #### 5 7021-8 #### [facility] CLIA [id number] [address] [place] [address] IMMATURE GRAN ABS <0.03 Normal <0.10 [facility] Comment on above: Order Comment: Speci men Type: BLOOD SPECIMEN Ordering Facility: [facility] Address: [address] [place] [address] Performed By: #### 5 7021-8 #### [facility] CLIA [id number] [address] [place] [address]90 Lymphocytes (Bld) [#/Vol] 3.62 10*3/uL Normal 1.00-4.00 [facility] Comment on above: Order Comment: Speci men Type: BLOOD SPECIMEN Ordering Facility: [facility] Address: [address] [place] [address] Performed By: #### 5 7021-8 #### [facility] CLIA [id number] [address] [place] [address] 13269 Lymphocytes/100 WBC (Bld) 54.8 % Normal [facility] Comment on above: Order Comment: Speci men Type: BLOOD SPECIMEN Ordering Facility: [facility] Address: [address] [place] [address] Performed By: #### 5 7021-8 #### [facility] CLIA [id number] [address] [place] [address]127 MCH (RBC) [Entitic mass] 20.3 pg Low 26.0-34.0 [facility] Comment on above: Order Comment: Speci men Type: BLOOD SPECIMEN Ordering Facility: [facility] Address: [address] [place] [address] Performed By: #### 5 7021-8 #### [facility] CLIA [id number] [address] [place] [address] 11256 MCHC (RBC) [Mass/Vol] 28.9 g/dL Low 30.5-36.0 [facility] Comment on above: Order Comment: Speci men Type: BLOOD SPECIMEN Ordering Facility: [facility] Address: [address] [place] [address] Performed By: #### 5 7021-8 #### [facility] CLIA [id number] [address] [place] [address] 21229 MCV (RBC) [Entitic vol] 70.3 fL Low 80.0-100.0 [facility] Comment on above: Order Comment: Speci men Type: BLOOD SPECIMEN Ordering Facility: [facility] Address: [address] [place], [place] [address] Performed By: #### 5 7021-8 #### [facility] CLIA [id number] [address] [place] [address]49 Monocytes (Bld) [#/Vol] 0.38 10*3/uL Normal <0.87 [facility] Comment on above: Order Comment: Speci men Type: BLOOD SPECIMEN Ordering Facility: [facility] Address: [address] [place], [place] [address] Performed By: #### 5 7021-8 #### [facility] CLIA [id number] [address] [place] [address]326 Monocytes/100 WBC (Bld) 5.7 % Normal [facility] Comment on above: Order Comment: Speci men Type: BLOOD SPECIMEN Ordering Facility: [facility] Address: [address] [place], [place] [address] Performed By: #### 5 7021-8 #### [facility] CLIA [id number] [address] [place] [address]295 Neutrophils (Bld) [#/Vol] 2.39 10*3/uL Normal 1.45-7.50 [facility] Comment on above: Order Comment: Speci men Type: BLOOD SPECIMEN Ordering Facility: [facility] Address: [address] [place], [place] [address] Performed By: #### 5 7021-8 #### [facility] CLIA [id number] [address] [place] [address] 69271 Neutrophils/100 WBC (Bld) 36.1 % Normal [facility] Comment on above: Order Comment: Speci men Type: BLOOD SPECIMEN Ordering Facility: [facility] Address: [address] [place], [place] [address] Performed By: #### 5 7021-8 #### [facility] CLIA [id number] [address] [place] [address] 07700 Nucleated RBC (Bld) [#/Vol] 10*3/uL Normal <0.01 [facility] Comment on above: Order Comment: Speci men Type: BLOOD SPECIMEN Ordering Facility: [facility] Address: [address] [place], [place] [address] Performed By: #### 5 7021-8 #### [facility] CLIA [id number] [address] [place] [address] 04700 Nucleated RBC/100 WBC (Bld) [Ratio] 0.0 /100 WBC Normal [facility] Comment on above: Order Comment: Speci men Type: BLOOD SPECIMEN Ordering Facility: [facility] Address: [address] [place] [address] Performed By: #### 5 7021-8 #### [facility] CLIA [id number] [address] [place] [address] 76181 Platelet mean volume (Bld) [Entitic vol] 8.8 fL Low 9.0-12.7 [facility] Comment on above: Order Comment: Speci men Type: BLOOD SPECIMEN Ordering Facility: [facility] Address: [address] [place] [address] Performed By: #### 5 7021-8 #### [facility] CLIA [id number] [address] [place] [address]3457 Platelets (Bld) [#/Vol] 419 10*3/uL High 150-400 [facility] Comment on above: Order Comment: Speci men Type: BLOOD SPECIMEN Ordering Facility: [facility] Address: [address] [place] [address] Performed By: #### 5 7021-8 #### [facility] CLIA [id number] [address] [place] [address] 39062 RBC (Bld) [#/Vol] 4.18 10*6/uL Normal 3.90-5.20 [facility] Comment on above: Order Comment: Speci men Type: BLOOD SPECIMEN Ordering Facility: [facility] Address: [address] [place] [address] Performed By: #### 5 7021-8 #### [facility] CLIA [id number] [address] [place] [address] 53437 WBC (Bld) [#/Vol] 6.61 10*3/uL Normal 3.70-11.00 [facility] Comment on above: Order Comment: Speci men Type: BLOOD SPECIMEN Ordering Facility: [facility] Address: [address], [place] [address] Performed By: #### 5 7021-8 #### [facility] CLIA [id number] [address] [place] [address] CNOVSPon 03-10-2022 CNOVSP Visit (SP) Office ([place]) LIVIA NOYOLA ([id number]) 1985 F Date Time Provider Department 03/10/22 2:00 PM GIL NI During your visit today, we recorded the following information about you: Temperature Pulse Respiration Blood pressure 97.9 degrees 95/minute 16/minute 130/75 Weight Height 83.4 kg 1.651 m Gil Ni APRN.CNP 03/10/2022 2:25 PM Signed NAME: Livia Noyola CLINIC NO.: [id number] DATE OF SERVICE: March 10, 2022 (Elements copied from Dr. rGupo Reid note dated October 27, 2020, have been reviewed and updated where appropriate, and all reflect current assessment and medical decision making during today's encounter, March 10, 2022) Referring Provider: Dr. Jennifer Duran Additional Clinicians involved in Livia Regino Noyola's care: CC: Iron deficiency anemia ASSESSMENT: [...] HPI: Updated Visit, March 10, 2022: Livia Regino Noyola returns for follow-up. She recently saw her PCP, Dr. Duran, and was found to have abnormal labs including a low hemoglobin and low iron studies. She continues to have heavy monthly menses lasting on average 6 days. She denies any other signs of blood loss. Her biggest complaint is fatigue. 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 [place] [facility] [place] 04, 2020 show hemoglobin of 11.6 [...] to chronic (more content not included)... Normal [facility] Comprehensive metabolic 2000 panelon 03-10-2022 Albumin [Mass/Vol] 4.0 g/dL Normal 3.9-4.9 [facility] Comment on above: Order Comment: Speci men Type: BLOOD SPECIMEN Ordering Facility: [facility] Address: [address] [place] [address] Performed By: #### 2 4323-8 #### [facility] CLIA [id number] [address] [place] [address] ALP [Catalytic activity/Vol] 55 U/L Normal 34-123 [facility] Comment on above: Order Comment: Speci men Type: BLOOD SPECIMEN Ordering Facility: [facility] Address: [address] [place] [address] Performed By: #### 2 4323-8 #### [facility] CLIA [id number] [address] [place] [address] ALT [Catalytic activity/Vol] 12 U/L Normal 7-38 [facility] Comment on above: Order Comment: Speci men Type: BLOOD SPECIMEN Ordering Facility: [facility] Address: [address] [address] Performed By: #### 2 4323-8 #### [facility] CLIA [id number] [address] [place] [address] Anion gap [Moles/Vol] 9 mmol/L Normal 9-18 [facility] Comment on above: Order Comment: Speci men Type: BLOOD SPECIMEN Ordering Facility: [facility] Address: [address] [address] Performed By: #### 2 4323-8 #### [facility] CLIA [id number] [address] [place] [address] 11917 AST [Catalytic activity/Vol] 14 U/L Normal 13-35 [facility] Comment on above: Order Comment: Speci men Type: BLOOD SPECIMEN Ordering Facility: [facility] Address: [address] [place], [place] [address] Performed By: #### 2 4323-8 #### [facility] CLIA [id number] [address] [place] [address] Bilirubin [Mass/Vol] 0.3 mg/dL Normal 0.2-1.3 [facility] Comment on above: Order Comment: Speci men Type: BLOOD SPECIMEN Ordering Facility: [facility] Address: [address] Performed By: #### 2 4323-8 #### [facility] CLIA [id number] [address] [place] [address]97 Calcium [Mass/Vol] 8.8 mg/dL Normal 8.5-10.2 [facility] Comment on above: Order Comment: Speci men Type: BLOOD SPECIMEN Ordering Facility: [facility] Address: [address] [place], [place] [id number] Performed By: #### 2 4323-8 #### [facility] CLIA [id number] [address] [place] [address]07 Chloride [Moles/Vol] 105 mmol/L Normal 97-105 [facility] Comment on above: Order Comment: Speci men Type: BLOOD SPECIMEN Ordering Facility: [facility] Address: [address] [place] [address] Performed By: #### 2 4323-8 #### [facility] CLIA [id number] [address] [place] [address] CO2 [Moles/Vol] 24 mmol/L Normal 22-30 [facility] Comment on above: Order Comment: Speci men Type: BLOOD SPECIMEN Ordering Facility: [facility] Address: [address] [place] [address] Performed By: #### 2 4323-8 #### [facility] CLIA [id number] [address] [place] [address] Creatinine [Mass/Vol] 0.65 mg/dL Normal 0.58-0.96 [facility] Comment on above: Order Comment: Speci men Type: BLOOD SPECIMEN Ordering Facility: [facility] Address: [address] [place] [address] Performed By: #### 2 4323-8 #### [facility] CLIA [id number] [address] [place] [address] ESTIMATED GLOMERULAR FILTRATION RATE 118 mL/min/1.73m??? Normal >=60 [facility] Comment on above: Order Comment: Speci men Type: BLOOD SPECIMEN Ordering Facility: [facility] Address: [address] [place] [address] Result Comment: Shelley mated Glomerular Filtration Rate [...] GFR. Performed By: #### 2 4323-8 #### [facility] CLIA [id number] [address] [place] [address]89 Glucose [Mass/Vol] 109 mg/dL High 74-99 [facility] Comment on above: Order Comment: Roselyn conway Type: BLOOD SPECIMEN Ordering Facility: [facility] Address: [address] [place], [place] [address] Result Comment: The [place] [employer] Association (ADA) provides guidance for cutoff [...] Standards of Medical Care in Diabetes 2016, [place] [employer]. Diabetes Care. 2016.39(Suppl 1). Performed By: #### 2 4323-8 #### [facility] CLIA [id number] [address] [place] [address] Potassium [Moles/Vol] 3.4 mmol/L Low 3.7-5.1 [facility] Comment on above: Order Comment: Roselyn conway Type: BLOOD SPECIMEN Ordering Facility: [facility] Address: [address] [place] [address] Performed By: #### 2 4323-8 #### [facility] CLIA [id number] [address] [place] [address]60 Protein [Mass/Vol] 6.5 g/dL Normal 6.3-8.0 [facility] Comment on above: Order Comment: Roselyn conway Type: BLOOD SPECIMEN Ordering Facility: [facility] Address: [address] [id number] Performed By: #### 2 4323-8 #### [facility] CLIA [id number] [address] [place] [address] Sodium [Moles/Vol] 138 mmol/L Normal 136-144 [facility] Comment on above: Order Comment: Speci men Type: BLOOD SPECIMEN Ordering Facility: [facility] Address: [address] [place] [address] Performed By: #### 2 4323-8 #### [facility] CLIA [id number] [address] [place] [address]277 Urea nitrogen [Mass/Vol] 8 mg/dL Normal 7-21 [facility] Comment on above: Order Comment: Speci men Type: BLOOD SPECIMEN Ordering Facility: [facility] Address: [address] [place] [address] Performed By: #### 2 4323-8 #### [facility] CLIA [id number] [address] [place] [address] Ferritin SerPl-mCncon 2021 Ferritin [Mass/Vol] 5.4 ng/mL Low 14.7-205.1 [facility] Comment on above: Order Comment: Speci men Type: BLOOD SPECIMEN Ordering Facility: [facility] Address: [address] [place] [address] Performed By: #### 5 0190-8, 2131-9, 2283-8, 6-4 #### [facility] CLIA [id number] [address] [place] [address] [place] Folate SerPl-mCncon 03-10-20 Folate [Mass/Vol] 8.7 ng/mL Normal >4.7 [facility] Comment on above: Order Comment: Speci men Type: BLOOD SPECIMEN Ordering Facility: [facility] Address: [address] [place] [address] Performed By: #### 5 0190-8, 2131-9, 2283-8, 6-4 #### [facility] CLIA [id number] [address] [place] [address] [place] Iron and Iron binding capaci ty panelon 03-10-2022 Iron [Mass/Vol] 17 ug/dL Low 41-186 [facility] Comment on above: Order Comment: Speci men Type: BLOOD SPECIMEN Ordering Facility: [facility] Address: [address] [place] [address] Performed By: #### 5 0190-8, 2131-9, 2283-8, 6-4 #### [facility] CLIA [id number] [address] [place] [address] [place] Iron binding capacity [Mass/Vol] 422 ug/dL High 232-386 [facility] Comment on above: Order Comment: Speci men Type: BLOOD SPECIMEN Ordering Facility: [facility] Address: [address] [place] [address] Performed By: #### 5 0190-8, 9, 2283-8, 6-4 #### [facility] CLIA [id number] [address] [place] [address] [place] Iron/TIBC [Molar ratio] 4.0 % Low 15.0-57.0 [facility] Comment on above: Order Comment: Speci men Type: BLOOD SPECIMEN Ordering Facility: [facility] Address: [address] [place], [place] [address] Performed By: #### 5 0190-8, 9, 2283-8, 6-4 #### [facility] CLIA [id number] [address] [place] [address] [place] Vit B12 SerPl-ncon 022 Cobalamin (Vitamin B12) [Mass/Vol] 367 pg/mL Normal 232-1245 [facility] Comment on above: Order Comment: Speci men Type: BLOOD SPECIMEN Ordering Facility: [facility] Address: [address] [place], [place] [address] Performed By: #### 5 0190-8, 2132-9, 2284-8, 2276-4 #### [facility] CLIA [id number] [address] [place], [place] [address] [facility] CNPDeborah 02-18-2022 CNPN Telephone ([place]) LIVIA NOYOLA ([id number]) 1985 F Date Time Provider Department 02/18/22 [...] Fully Assessed Reason for Visit: Lab Orders [1687] Primary Visit Diagnosis:Iron deficiency anemia due to chronic blood loss [D50.0] Order(s):CBC + DIFF [SQCBCDIF] Order #: [id number] FUTURE COMP METABOLIC PANEL [SQCMP] Order #: [id number] FUTURE IRON + TIBC [SQIRON] Order #: [id number] FUTURE FERRITIN BLD [SQFERR] Order #: [id number] FUTURE VITAMIN B12 BLOOD [SQB12] Order #: [id number] FUTURE FOLATE SERUM [SQSERFOL] Order #: [id number] FUTURE Prescriptions as of 02/20/2022 - ALPRAZolam [...] Status:Closed by [facility] [place] on 02/20/22 Normal [facility] Basophils Auto (Bld) [#/Vol] Ordered By: Jennifer Duran on 02-12-2022 Basophils (Bld) [#/Vol] 0.1 10*3/uL 0.0-0.2 [facility] Basophils/100 WBC Auto (Bld) Ordered By: Jennifer Duran on 02-12-2022 Basophils/100 WBC (Bld) 1.0 % . F [facility] Blood anisocytosis detection Ordered By: Jennifer Duran on 02-12-2022 Anisocytosis Ql (Bld) Moderate [facility] Blood hemoglobin measurement (mass/volume)Ordered By: Jennifer Duran on 02-12-2022 Hemoglobin (Bld) [Mass/Vol] 8.5 g/dL 11.8-15.4 [facility] Blood leukocytes automated c ount (number/volume)Ordered By: Jennifer Duran on 02-12-2022 WBC (Bld) [#/Vol] 5.9 10*3/uL 4.5-11.0 [facility] Body fluid albumin measureme nt (mass/volume)Ordered By: Jennifer Duran on 02-12-2022 Albumin (Body fld) [Mass/Vol] 3.7 g/dL 3.2-5.5 [facility] CT biopsyOrdered By: Jennifer avila on 02-12-2022 Transferrin [Mass/Vol] 356 mg/dL 180-380 [facility] Creatinine and Glomerular fi ltration rate.predicted panel (S/P/Bld)Ordered By: Jennifer Duran on 02-12-2022 Creatinine [Mass/Vol] 0.72 mg/dL 0.44-1.03 [facility] Eosinophils Auto (Bld) [#/Vo l]Ordered By: Jennifer Duran on 02-12-2022 Eosinophils (Bld) [#/Vol] 0.1 10*3/uL 0.0-0.45 [facility] Eosinophils/100 WBC Auto (Bl d)Ordered By: Jennifer Duran on 02-12-2022 Eosinophils/100 WBC (Bld) 2.2 % . [facility] Erythrocyte distribution wid th Auto (RBC) [Ratio]Ordered By: Jennifer Duran on 02-12-2022 Erythrocyte distribution width (RBC) [Ratio] 17.3 % 11.9-15.3 [facility] Estimated glomerular filtrat ion rate (GFR) non- AmericanOrdered By: Jennifer Duran on 02-12-2022 GFR/1.73 sq M.predicted among non-blacks MDRD (S/P/Bld) [Vol rate/Area] > 60 mL/Min [facility] Ferritin [Mass/volume] in Se rum or PlasmaOrdered By: Jennifer Duran on 02-12-2022 Ferritin [Mass/Vol] 5.1 ng/mL 11-306.8 [facility] Globulin Calc (S) [Mass/Vol] Ordered By: Jennifer Duran on 02-12-2022 Globulin (S) [Mass/Vol] 2.9 g/dL [facility] Hematocrit Auto (Bld) [Volum e fraction]Ordered By: Jennifer Duran on 02-12-2022 Hematocrit (Bld) [Volume fraction] 27.9 % 34.0-46.4 [facility] Hypochromia detectionOrdered By: Jennifer Duran on 02-12-2022 Hypochromia Ql (Bld) Slight [facility] Iron [Mass/volume] in Serum or PlasmaOrdered By: Jennifer Duran on 02-12-2022 Iron [Mass/Vol] 11 ug/dL 40-150 [facility] Iron binding capacity [Mass/ volume] in Serum or PlasmaOrdered By: Jennifer Duran on 02-12-2022 Iron binding capacity [Mass/Vol] 498 ug/dL 255-450 [facility] Iron saturation [Mass Fracti on] in Serum or PlasmaOrdered By: Jennifer Duran on 02-12-2022 Iron saturation [Mass fraction] 2.0 % 20-50 [facility] Laboratory - Hematology and Cell countsOrdered By: Jennifer Duran on 02-12-2022 Nucleated RBC/100 WBC (Bld) [Ratio] 0.3 % 0-0.5 [facility] Lymphocytes Auto (Bld) [#/Vo l]Ordered By: Jennifer Duran on 02-12-2022 Lymphocytes (Bld) [#/Vol] 3.0 10*3/uL 1.00-4.8 [facility] Lymphocytes/100 WBC Auto (Bl d)Ordered By: Jennifer uDran on 02-12-2022 Lymphocytes/100 WBC (Bld) 50.8 % . [facility] MCH Auto (RBC) [Entitic mass ]Ordered By: Jennifer Duran on 02-12-2022 MCH (RBC) [Entitic mass] 20.1 pg 24.7-34.3 [facility] MCHC Auto (RBC) [Mass/Vol]Or dered By: Jennifer Duran on 02-12-2022 MCHC (RBC) [Mass/Vol] 30.4 g/dL 32.0-35.0 [facility] MCV Auto (RBC) [Entitic vol] Ordered By: Jennifer Duran on 02-12-2022 MCV (RBC) [Entitic vol] 66.3 fL 80-[address] [facility] Monocytes Auto (Bld) [#/Vol] Ordered By: Jennifer Duran on 02-12-2022 Monocytes (Bld) [#/Vol] 0.3 10*3/uL 0.0-0.8 [facility] Monocytes/100 WBC Auto (Bld) Ordered By: Jennifer Duran on 02-12-2022 Monocytes/100 WBC (Bld) 5.7 % . F [facility] Neutrophils Auto (Bld) [#/Vo l]Ordered By: Jennifer Duran on 02-12-2022 Neutrophils (Bld) [#/Vol] 2.4 10*3/uL 1.8-7.7 [facility] Neutrophils/100 WBC Auto (Bl d)Ordered By: Jennifer Duran on 02-12-2022 Neutrophils/100 WBC (Bld) 40.3 % . [facility] No Panel InformationOrdered By: Jennifer Duran on 02-12-2022 Estimated GFR () > 60 mL/Min [facility] Comment on above: GFR estimated refere nce range: According to KDOQI guidelines, <60 ml/min/1.73m2 is sufficient to diagnose a patient with chronic kidney disease. Microcytosis Moderate [facility] Pharmacy Creatinine Clearance (Chem N/A [facility] Platelet Estimate Normal Normal [facility] Platelet Morphology Comment Normal Normal [facility] Platelet mean volume Auto (B ld) [Entitic vol]Ordered By: Jennifer Duran on 02-12-2022 Platelet mean volume (Bld) [Entitic vol] 8.1 fL 6.3-10.7 [facility] Platelets Auto (Bld) [#/Vol] Ordered By: Jennifer Duran on 02-12-2022 Platelets (Bld) [#/Vol] 459 10*3/uL 150-450 [facility] Protein [Mass/volume] in Ser um or PlasmaOrdered By: Jennifer Duran on 02-12-2022 Protein [Mass/Vol] 6.6 g/dL 6.1-7.9 [facility] RBC Auto (Bld) [#/Vol]Ordere d By: Jennifer Duran on 02-12-2022 RBC (Bld) [#/Vol] 4.20 10*6/uL 3.60-5.00 [facility] RBC morphologyOrdered By: Pool Duran on 02-12-2022 RBC morphology finding Nom (Bld) N/A [facility] Serum or plasma alanine syed otransferase measurement without P-5'-P (enzymatic activiOrdered By: Jennifer Duran on 02-12-2022 ALT No additional P-5'-P [Catalytic activity/Vol] 69 U/L 10-60 [facility] Serum or plasma albumin/glob ulin mass ratioOrdered By: Jennifer Duran on 02-12-2022 Albumin/Globulin [Mass ratio] 1.3 {ratio} [facility] Serum or plasma alkaline zeeshan sphatase measurement (enzymatic activity/volume)Ordered By: Jennifer Duran on 02-12-2022 ALP [Catalytic activity/Vol] 73 U/L 32-92 [facility] Serum or plasma anion gap de terminationOrdered By: Jennifer Duran on 02-12-2022 Anion gap [Moles/Vol] 13.2 mmol/L 6.0-15.0 [facility] Serum or plasma aspartate am inotransferase measurement (enzymatic activity/volume)Ordered By: Jennifer Duran on 02-12-2022 AST [Catalytic activity/Vol] 42 U/L 10-42 [facility] Serum or plasma calcium donaldo urement (mass/volume)Ordered By: Jennifer Duran on 02-12-2022 Calcium [Mass/Vol] 9.3 mg/dL 8.2-10.2 [facility] Serum or plasma chloride claudia surement (moles/volume)Ordered By: Jennifer Duran on 02-12-2022 Chloride [Moles/Vol] 101 mmol/L 95-114 [facility] Serum or plasma glucose donaldo urement (mass/volume)Ordered By: Jennifer Duran on 02-12-2022 Glucose [Mass/Vol] 98 mg/dL 70-100 [facility] Comment on above: ADA recommended refe [...] on 02-12-2022 Potassium [Moles/Vol] 3.6 mmol/L 3.5-5.1 [facility] Serum or plasma sodium measu rement (moles/volume)Ordered By: Jennifer Duran on 02-12-2022 Sodium [Moles/Vol] 136 mmol/L 136-146 [facility] Serum or plasma total biliru bin measurement (mass/volume)Ordered By: Jennifer Duran on 02-12-2022 Bilirubin [Mass/Vol] 0.4 mg/dL 0.3-1.2 [facility] Serum or plasma total carbon dioxide measurement (moles/volume)Ordered By: Jennifer Duran on 02-12-2022 CO2 [Moles/Vol] 25.4 mmol/L 22.0-30.0 [facility] Serum or plasma urea nitroge n measurement (mass/volume)Ordered By: Jennifer Duran on 02-12-2022 Urea nitrogen [Mass/Vol] 4 mg/dL 9- [facility] Basophils Auto (Bld) [#/Vol] Ordered By: Kendra Persaud on 09-14-2021 Basophils (Bld) [#/Vol] 0.1 10*3/uL 0.0-0.2 [facility] Basophils/100 WBC Auto (Bld) Ordered By: Kendra Persaud on 09-14-2021 Basophils/100 WBC (Bld) 1.3 % F [facility] Bilirubin Test strip Ql (U)O rdered By: Kendra Persaud on 09-14-2021 Bilirubin Ql (U) Negative Negative [facility] Blood hemoglobin measurement (mass/volume)Ordered By: Kendra Persaud on 09-14-2021 Hemoglobin (Bld) [Mass/Vol] 9.7 g/dL 11.8-15.4 [facility] Blood leukocytes automated c ount (number/volume)Ordered By: Kendra Persaud on 09-14-2021 WBC (Bld) [#/Vol] 8.9 10*3/uL 4.5-11.0 [facility] Body fluid albumin measureme nt (mass/volume)Ordered By: Kendra Persaud on 09-14-2021 Albumin (Body fld) [Mass/Vol] 3.7 g/dL 3.2-5.5 [facility] Color Auto (U)Ordered By: Jazmin Persaud on 09-14-2021 Color (U) Yellow Yellow [facility] Creatinine and Glomerular fi ltration rate.predicted panel (S/P/Bld)Ordered By: Kendra Persaud on 09-14-2021 Creatinine [Mass/Vol] 0.71 mg/dL 0.44-1.03 [facility] Eosinophils Auto (Bld) [#/Vo l]Ordered By: Kendra Persaud on 09-14-2021 Eosinophils (Bld) [#/Vol] 0.0 10*3/uL 0.0-0.45 [facility] Eosinophils/100 WBC Auto (Bl d)Ordered By: Kendra Persaud on 09-14-2021 Eosinophils/100 WBC (Bld) 0.4 % [facility] Erythrocyte distribution wid th Auto (RBC) [Ratio]Ordered By: Kendra Persaud on 09-14-2021 Erythrocyte distribution width (RBC) [Ratio] 17.0 % 11.9-15.3 [facility] Estimated glomerular filtrat ion rate (GFR) non- AmericanOrdered By: Kendra Persaud on 09-14-2021 GFR/1.73 sq M.predicted among non-blacks MDRD (S/P/Bld) [Vol rate/Area] > 60 mL/Min [facility] Globulin Calc (S) [Mass/Vol] Ordered By: Kendra Persaud on 09-14-2021 Globulin (S) [Mass/Vol] 3.2 g/dL F [facility] HCG ( test) IA.rapi d Ql (U)Ordered By: Kendra Persaud on 09-14-2021 HCG ( test) Ql (U) Negative [facility] Hematocrit Auto (Bld) [Volum e fraction]Ordered By: Kendra Persaud on 09-14-2021 Hematocrit (Bld) [Volume fraction] 31.9 % 34.0-46.4 [facility] Ketones Auto test strip (U) [Mass/Vol]Ordered By: Kendra Persaud on 09-14-2021 Ketones (U) [Mass/Vol] Negative Negative Fi [facility] Laboratory - Chemistry and C hemistry - challengeOrdered By: Kendra Persaud on 09-14-2021 Lipase [Catalytic activity/Vol] 36.0 U/L 22-51 [facility] Laboratory - Hematology and Cell countsOrdered By: Kendra Persaud on 09-14-2021 Nucleated RBC/100 WBC (Bld) [Ratio] 0.0 % 0-0.5 [facility] Lymphocytes Auto (Bld) [#/Vo l]Ordered By: Kendra Persaud on 09-14-2021 Lymphocytes (Bld) [#/Vol] 4.1 10*3/uL 1.00-4.8 [facility] Lymphocytes/100 WBC Auto (Bl d)Ordered By: Kendra Persaud on 09-14-2021 Lymphocytes/100 WBC (Bld) 45.7 % [facility] MCH Auto (RBC) [Entitic mass ]Ordered By: Kendra Persaud on 09-14-2021 MCH (RBC) [Entitic mass] 21.3 pg 24.7-34.3 [facility] MCHC Auto (RBC) [Mass/Vol]Or dered By: Kendra Persaud on 09-14-2021 MCHC (RBC) [Mass/Vol] 30.4 g/dL 32.0-35.0 [facility] MCV Auto (RBC) [Entitic vol] Ordered By: Kendra Persaud on 09-14-2021 MCV (RBC) [Entitic vol] 70.0 fL 80-[address] [facility] Monocytes Auto (Bld) [#/Vol] Ordered By: Kendra Persaud on 09-14-2021 Monocytes (Bld) [#/Vol] 0.7 10*3/uL 0.0-0.8 [facility] Monocytes/100 WBC Auto (Bld) Ordered By: Kendra Persaud on 09-14-2021 Monocytes/100 WBC (Bld) 7.8 % F [facility] Neutrophils Auto (Bld) [#/Vo l]Ordered By: Kendra Persaud on 09-14-2021 Neutrophils (Bld) [#/Vol] 4.0 10*3/uL 1.8-7.7 [facility] Neutrophils/100 WBC Auto (Bl d)Ordered By: Kendra Persaud on 09-14-2021 Neutrophils/100 WBC (Bld) 44.8 % [facility] Nitrite Test strip Ql (U)Ord ered By: Kendra Persaud on 09-14-2021 Nitrite Ql (U) Negative Negative [facility] No Panel InformationOrdered By: Kendra Persaud on 09-14-2021 Estimated GFR () > 60 mL/Min [facility] Comment on above: GFR estimated refere nce range: According to KDOQI guidelines, <60 ml/min/1.73m2 is sufficient to diagnose a patient with chronic kidney disease. Pharmacy Creatinine Clearance (Chem 119.44 [facility] Platelet mean volume Auto (B ld) [Entitic vol]Ordered By: Kendra Persaud on 09-14-2021 Platelet mean volume (Bld) [Entitic vol] 7.4 fL 6.3-10.7 [facility] Platelets Auto (Bld) [#/Vol] Ordered By: Kendra Persaud on 09-14-2021 Platelets (Bld) [#/Vol] 604 10*3/uL 150-450 [facility] Protein Auto test strip (U) [Mass/Vol]Ordered By: Kendra Persaud on 09-14-2021 Protein (U) [Mass/Vol] Negative Negative Fi [facility] Protein [Mass/volume] in Ser um or PlasmaOrdered By: Kendra Persaud on 09-14-2021 Protein [Mass/Vol] 6.9 g/dL 6.1-7.9 [facility] RBC Auto (Bld) [#/Vol]Ordere d By: Kendra Persaud on 09-14-2021 RBC (Bld) [#/Vol] 4.55 10*6/uL 3.60-5.00 [facility] Serum or plasma alanine syed otransferase measurement without P-5'-P (enzymatic activiOrdered By: Kendra Persaud on 09-14-2021 ALT No additional P-5'-P [Catalytic activity/Vol] 16 U/L 10-60 [facility] Serum or plasma albumin/glob ulin mass ratioOrdered By: Kendra Persaud on 09-14-2021 Albumin/Globulin [Mass ratio] 1.2 {ratio} [facility] Serum or plasma alkaline zeeshan sphatase measurement (enzymatic activity/volume)Ordered By: Kendra Persaud on 09-14-2021 ALP [Catalytic activity/Vol] 48 U/L 32-92 [facility] Serum or plasma aspartate am inotransferase measurement (enzymatic activity/volume)Ordered By: Kendra Persaud on 09-14-2021 AST [Catalytic activity/Vol] 17 U/L 10-42 [facility] Serum or plasma calcium donaldo urement (mass/volume)Ordered By: Kendra Persaud on 09-14-2021 Calcium [Mass/Vol] 9.0 mg/dL 8.2-10.2 [facility] Serum or plasma chloride claudia surement (moles/volume)Ordered By: Kendra Persaud on 09-14-2021 Chloride [Moles/Vol] 105 mmol/L 95-114 [facility] Serum or plasma glucose donaldo urement (mass/volume)Ordered By: Kendra Persaud on 09-14-2021 Glucose [Mass/Vol] 94 mg/dL 70-100 [facility] Comment on above: ADA recommended refe rence rangeRandom Glucose Reference Range is dependent on time and content of last meal. Glucose of more than 200 mg/dL in a nonstressed, ambulatory subject supports the diagnosis of Diabetes Mellitus. Serum or plasma potassium me asurement (moles/volume)Ordered By: Kendra Persaud on 09-14-2021 Potassium [Moles/Vol] 3.1 mmol/L 3.5-5.1 [facility] Serum or plasma sodium measu rement (moles/volume)Ordered By: Kendra Persaud on 09-14-2021 Sodium [Moles/Vol] 139 mmol/L 136-146 [facility] Serum or plasma total biliru bin measurement (mass/volume)Ordered By: Kendra Persaud on 09-14-2021 Bilirubin [Mass/Vol] 0.5 mg/dL 0.3-1.2 [facility] Serum or plasma total carbon dioxide measurement (moles/volume)Ordered By: Kendra Persaud on 09-14-2021 CO2 [Moles/Vol] 23.7 mmol/L 22.0-30.0 [facility] Serum or plasma urea nitroge n measurement (mass/volume)Ordered By: Kendra Persaud on 09-14-2021 Urea nitrogen [Mass/Vol] 4 mg/dL 9-23 [facility] Specific gravity Auto test s trip (U) [Rel density]Ordered By: Kendra Persaud on 09-14-2021 Specific gravity (U) [Rel density] 1.004 1.001-1.030 [facility] Urine clarity by refractomet ry automatedOrdered By: Kendra Persaud on 09-14-2021 Clarity Refractometry automated (U) Clear Clear [facility] Urine glucose measurement by automated test strip (mass/volume)Ordered By: Kendra Persaud on 09-14-2021 Glucose Auto test strip (U) [Mass/Vol] Normal mg/dL Normal [facility] Urine hemoglobin detection b y automated test stripOrdered By: Kendra Persaud on 09-14-2021 Hemoglobin Auto test strip Ql (U) Negative Negative [facility] Urine leukocyte esterase det ection by automated test stripOrdered By: Kendra Persaud on 09-14-2021 Leukocyte esterase Auto test strip Ql (U) Negative Negative [facility] Urobilinogen Auto test strip (U) [Mass/Vol]Ordered By: Kendra Persaud on 09-14-2021 Urobilinogen (U) [Mass/Vol] Normal mg/dL Normal [facility] pH Auto test strip (U)Ordere d By: Kendra Persaud on 09-14-2021 pH (U) 6.5 [pH] 5.0-9.0 [facility] Basophils Auto (Bld) [#/Vol] Ordered By: Augustus Santiago on 07-04-2021 Basophils (Bld) [#/Vol] 0.1 10*3/uL 0.0-0.2 [facility] Basophils/100 WBC Auto (Bld) Ordered By: Augustus Santiago on 07-04-2021 Basophils/100 WBC (Bld) 0.9 % F [facility] Blood hemoglobin measurement (mass/volume)Ordered By: Augustus Santiago on 07-04-2021 Hemoglobin (Bld) [Mass/Vol] 10.2 g/dL 11.8-15.4 [facility] Blood leukocytes automated c ount (number/volume)Ordered By: Augustus Santiago on 07-04-2021 WBC (Bld) [#/Vol] 6.6 10*3/uL 4.5-11.[address] [facility] [address] biopsyOrdered By: Augustus powell on 07-04-2021 Transferrin [Mass/Vol] 360 mg/dL 180-380 [facility] Creatinine and Glomerular fi ltration rate.predicted panel (S/P/Bld)Ordered By: Augustus Santiago on 07-04-2021 Creatinine [Mass/Vol] 0.69 mg/dL 0.44-1.03 [facility] Eosinophils Auto (Bld) [#/Vo l]Ordered By: Augustus Santiago on 07-04-2021 Eosinophils (Bld) [#/Vol] 0.1 10*3/uL 0.0-0.45 [facility] Eosinophils/100 WBC Auto (Bl d)Ordered By: Augustus Santiago on 07-04-2021 Eosinophils/100 WBC (Bld) 1.2 % [facility] Erythrocyte distribution wid th Auto (RBC) [Ratio]Ordered By: Augustus Santiago on 07-04-2021 Erythrocyte distribution width (RBC) [Ratio] 17.2 % 11.9-15.3 [facility] Estimated glomerular filtrat ion rate (GFR) non- AmericanOrdered By: Augustus Santiago on 07-04-2021 GFR/1.73 sq M.predicted among non-blacks MDRD (S/P/Bld) [Vol rate/Area] > 60 mL/Min [facility] Hematocrit Auto (Bld) [Volum e fraction]Ordered By: Augustus Santiago on 07-04-2021 Hematocrit (Bld) [Volume fraction] 32.0 % 34.0-46.4 [facility] Iron [Mass/volume] in Serum or PlasmaOrdered By: Augustus Santiago on 07-04-2021 Iron [Mass/Vol] 10 ug/dL 40-150 [facility] Iron binding capacity [Mass/ volume] in Serum or PlasmaOrdered By: Augustus Santiago on 07-04-2021 Iron binding capacity [Mass/Vol] 504 ug/dL 255-450 [facility] Iron saturation [Mass Fracti on] in Serum or PlasmaOrdered By: Augustus Santiago on 07-04-2021 Iron saturation [Mass fraction] 1.0 % 20-50 [facility] Laboratory - Hematology and Cell countsOrdered By: Augustus Santiago on 07-04-2021 Nucleated RBC/100 WBC (Bld) [Ratio] 0.0 % 0-0.5 [facility] Lymphocytes Auto (Bld) [#/Vo l]Ordered By: Augustus Santiago on 07-04-2021 Lymphocytes (Bld) [#/Vol] 1.9 10*3/uL 1.00-4.8 [facility] Lymphocytes/100 WBC Auto (Bl d)Ordered By: Augustus Santiago on 07-04-2021 Lymphocytes/100 WBC (Bld) 28.4 % [facility] MCH Auto (RBC) [Entitic mass ]Ordered By: Augustus Santiago on 07-04-2021 MCH (RBC) [Entitic mass] 22.7 pg 24.7-34.3 [facility] MCHC Auto (RBC) [Mass/Vol]Or dered By: Augustus Santiago on 07-04-2021 MCHC (RBC) [Mass/Vol] 31.9 g/dL 32.0-35.0 [facility] MCV Auto (RBC) [Entitic vol] Ordered By: Augustus Santiago on 07-04-2021 MCV (RBC) [Entitic vol] 71.3 fL 80-[address] [facility] Monocytes Auto (Bld) [#/Vol] Ordered By: Augustus Santiago on 07-04-2021 Monocytes (Bld) [#/Vol] 0.5 10*3/uL 0.0-0.8 [facility] Monocytes/100 WBC Auto (Bld) Ordered By: Augustus Santiago on 07-04-2021 Monocytes/100 WBC (Bld) 7.6 % F [facility] Neutrophils Auto (Bld) [#/Vo l]Ordered By: Augustus Santiago on 07-04-2021 Neutrophils (Bld) [#/Vol] 4.1 10*3/uL 1.8-7.7 [facility] Neutrophils/100 WBC Auto (Bl d)Ordered By: Augustus Santiago on 07-04-2021 Neutrophils/100 WBC (Bld) 61.9 % [facility] No Panel InformationOrdered By: Augustus Santiago on 07-04-2021 D-Dimer Quantitative (PE/DVT) < 200 ng/mL 0-243 [facility] Comment on above: The reference [...] conditions. Estimated GFR () > 60 mL/Min [facility] Comment on above: GFR estimated refere nce range: According to KDOQI guidelines, <60 ml/min/1.73m2 is sufficient to diagnose a patient with chronic kidney disease. Pharmacy Creatinine Clearance (Chem N/A [facility] Platelet mean volume Auto (B ld) [Entitic vol]Ordered By: Augustus Santiago on 07-04-2021 Platelet mean volume (Bld) [Entitic vol] 7.9 fL 6.3-10.7 [facility] Platelets Auto (Bld) [#/Vol] Ordered By: Augustus Santiago on 07-04-2021 Platelets (Bld) [#/Vol] 457 10*3/uL 150-450 [facility] RBC Auto (Bld) [#/Vol]Ordere d By: Augustus Santiago on 07-04-2021 RBC (Bld) [#/Vol] 4.48 10*6/uL 3.60-5.00 [facility] Serum or plasma calcium donaldo urement (mass/volume)Ordered By: Augustus Santiago on 07-04-2021 Calcium [Mass/Vol] 8.9 mg/dL 8.2-10.2 [facility] Serum or plasma chloride claudia surement (moles/volume)Ordered By: Augustus Santiago on 07-04-2021 Chloride [Moles/Vol] 105 mmol/L 95-114 [facility] Serum or plasma glucose donaldo urement (mass/volume)Ordered By: Augustus Santiago on 07-04-2021 Glucose [Mass/Vol] 110 mg/dL 70-100 [facility] Comment on above: ADA recommended refe rence rangeRandom Glucose Reference Range is dependent on time and content of last meal. Glucose of more than 200 mg/dL in a nonstressed, ambulatory subject supports the diagnosis of Diabetes Mellitus. Serum or plasma potassium me asurement (moles/volume)Ordered By: Augustus Santiago on 07-04-2021 Potassium [Moles/Vol] 3.5 mmol/L 3.5-5.1 [facility] Serum or plasma sodium measu rement (moles/volume)Ordered By: Augustus Santiago on 07-04-2021 Sodium [Moles/Vol] 136 mmol/L 136-146 [facility] Serum or plasma total carbon dioxide measurement (moles/volume)Ordered By: Augustus Santiago on 07-04-2021 CO2 [Moles/Vol] 23.0 mmol/L 22.0-30.0 [facility] Serum or plasma urea nitroge n measurement (mass/volume)Ordered By: Augustus Santiago on 07-04-2021 Urea nitrogen [Mass/Vol] 5 mg/dL 9-23 [facility] Cardiac Stress Teston 2020 Cardiac Stress Test [address], [address] [place] [address] TRANSTHORACIC ECHOCARDIOGRAM REPORT Patient Name: LIVIA Alfredo Physician: [id number] Raphael Alas MD Study Date: 08/06/2020 Referring Physician: [id number] ANNA CANTU MRN/PID: [id number] PCP: Jennifer Duran Accession/Order#: [id number] Department Location: [facility] Date of : 1985 Fellow: Gender: F Nurse: Admit Date: Mine Foreman: Josephine Newton RDCS, T Height: 165.10 cm CC Report to: Weight: 88.00 kg Study Type: Echocardiogram BSA: 1.95 m2 Diagnosis/ICD: R06.00-Dyspnea, unspecified; R00.0-Tachycardia, unspecified Indication: Obesity, Family History of CAD Procedure/CPT: Echo Complete w Full Doppler-[id number] Study Detail: The following Echo studies were [...] 0.9 m/s (0.6-0.9m/s) PV Max P.0 mmHg [id number] Raphael Alas MD Electronically signed on 08/07/2020 at 4:26:59 PM Final Normal [facility] Vital Signs Date Time Vital Sign Value Performing Clinician Facility 01-22-2024 [id number] Body height 165.1 cm Eren Camejo DO Work Phone: [facility] 01-22-2024 12:[id number] Body mass index (BMI) [Ratio] 29.95 kg/m2 Eren Camejo DO Work Phone: [facility] 01-22-2024 12:13-0400 Body temperature 98.71 [degF] Eren Camejo DO Work Phone: [facility] 01-22-2024 12:13-0400 Body weight 81.65 kg Eren [facility]jo DO [facility] 01-22-2024 12:13-0400 Diastolic blood pressure 92 mm[Hg] Eren Camejo DO Work Phone: [facility] [employer] 01-22-2024 12:13-0400 Heart rate 109 /min Eren Camejo DO [facility] 01-22-2024 12:13-0400 Respiratory rate 18 /min Eren Camejo DO Work [facility] 01-22-2024 12:13-0400 SaO2% (BldA) [Mass fraction] 100 % Eren Camejo DO [facility] 01-22-2024 12:13-0400 Systolic blood pressure 152 mm[Hg] Eren Camejo DO Work Phone[facility] 01-19-2024 11:18-0400 Body height 165.1 cm DO Jennifer Kendallivelisse Work Phone: [facility] 01-19-2024 11:18-0400 Body mass index (BMI) [Ratio] 31.9 kg/m2 DO Jennifer Kendallivelisse Work Phone: [facility] 01-19-2024 11:18-0400 Body temperature 98.2 [degF] DO Jennifer Duran Work Phone: [facility] 01-19-2024 11:18-0400 Body weight 87.08 kg DO Jennifer Kenadllivelisse Work Phone: [facility] 01-19-2024 11:18-0400 Diastolic blood pressure 82 mm[Hg] DO Jennifer Duran Work Phone: [facility] 01-19-2024 11:18-0400 Heart rate 102 /min DO Jennifer Duran Work Phone: [facility] 01-19-2024 11:18-0400 Respiratory rate 18 /min DO Jennifer Duran Work Phone: [facility] 01-19-2024 11:18-0400 SaO2% (BldA) [Mass fraction] 98 % DO Jennifer Duran Work Phone: [facility] 01-19-2024 11:18-0400 Systolic blood pressure 122 mm[Hg] DO Jennifer Duran Work Phone: [facility] 11-08-2023 14:03-0400 Body height 165.1 cm DO Jennifer Duran Work Phone: [facility] 11-08-2023 14:03-0400 Body temperature 98.1 [degF] DO Jennifer Duran Work Phone: [facility] 11-08-2023 14:03-0400 Body weight 82.85 kg DO Jennifer Duran Work Phone: [facility] 11-08-2023 14:03-0400 Diastolic blood pressure 77 mm[Hg] DO Jennifer Duran Work Phone: [facility] 11-08-2023 14:03-0400 Heart rate 86 /min DO Jennifer Duran Work Phone: [facility] 11-08-2023 14:03-0400 Respiratory rate 16 /min DO Jennifer Duran Work Phone: [facility] 11-08-2023 14:03-0400 SaO2% (BldA) [Mass fraction] 100 % DO Jennifer Duran Work Phone: [facility] 11-08-2023 14:03-0400 Systolic blood pressure 142 mm[Hg] DO Jennifer Duran Work Phone: [facility] 11-08-2023 11:56-0400 Body height 165.1 cm Eren Camejo DO Work Phone: [facility] 11-08-2023 11:56-0400 Body mass index (BMI) [Ratio] 30.45 kg/m2 Eren Camejo DO Work Phone: [facility] 11-08-2023 11:56-0400 Body temperature 97.81 [degF] Eren Camejo DO Work Phone: [facility] 11-08-2023 11:56-0400 Body weight 83.01 kg Eren Camejo DO Work Phone: [facility] 11-08-2023 11:56-0400 Diastolic blood pressure 86 mm[Hg] Eren Camejo DO Work Phone: [facility] 11-08-2023 11:56-0400 Heart rate 100 /min Eren Camejo DO [facility] 11-08-2023 11:56-0400 Respiratory rate 18 /min Eren Camejo DO Work Phone[facility] 11-08-2023 11:56-0400 SaO2% (BldA) [Mass fraction] 99 % Eren Camejo DO Work Phone: [facility] 11-08-2023 11:56-0400 Systolic blood pressure 133 mm[Hg] Eren Camejo DO Work Phone: [facility] [employer] 09-30-2023 02:09-0400 Diastolic blood pressure 89 mm[Hg] Ritesh Ivana [facility] 09-30-2023 02:09-0400 Heart rate 124 /min Ritesh Ivana [facility] 09-30-2023 02:09-0400 Mean blood pressure 109 mm[Hg] Ritesh Ivana [facility] 09-30-2023 02:09-0400 Respiratory rate 20 /min Ritesh Ivana [facility] 09-30-2023 02:09-0400 SaO2% (BldA) [Mass fraction] 98 % Ritesh Ivana [facility] 09-30-2023 02:09-0400 Systolic blood pressure 149 mm[Hg] Ritesh Ivana [facility] 09-30-2023 01:00-0400 Diastolic blood pressure 82 mm[Hg] Ritesh Ivana [facility] 09-30-2023 01:00-0400 Heart rate 118 /min Ritesh Ivana [facility] 09-30-2023 01:00-0400 Mean blood pressure 104 mm[Hg] Ritesh Ivana [facility] 09-30-2023 01:00-0400 SaO2% (BldA) [Mass fraction] 99 % Ritesh Ivana [facility] 09-30-2023 01:00-0400 Systolic blood pressure 147 mm[Hg] Ritesh Ivana [facility] 09-29-2023 23:40-0400 Body temperature 97.7 [degF] Ritesh Ivana [facility] 09-29-2023 23:40-0400 Diastolic blood pressure 92 mm[Hg] Ritesh Ivana [facility] 09-29-2023 23:40-0400 Heart rate 139 /min Ritesh Ivana [facility] 09-29-2023 23:40-0400 Respiratory rate 20 /min Ritesh Ivana [facility] 09-29-2023 23:40-0400 SaO2% (BldA) [Mass fraction] 100 % Ritesh Ivana [facility] 09-29-2023 23:40-0400 Systolic blood pressure 144 mm[Hg] Ritesh Ivana [facility] 09-26-2023 18:00-0400 Heart rate 119 /min Konstantin Zohaib [facility] 09-26-2023 18:00-0400 SaO2% (BldA) [Mass fraction] 96 % Konstantin Warde [facility] 09-26-2023 17:30-0400 Diastolic blood pressure 124 mm[Hg] Konstantin Warde [facility] 09-26-2023 17:30-0400 Heart rate 105 /min Konstantin Zohaib [facility] 09-26-2023 17:30-0400 Mean blood pressure 129 mm[Hg] Konstantin Zohaib [facility] 09-26-2023 17:30-0400 SaO2% (BldA) [Mass fraction] 100 % Konstantin Warde [facility] 09-26-2023 17:30-0400 Systolic blood pressure 139 mm[Hg] Konstantin Zohaib [facility] 09-26-2023 16:48-0400 Diastolic blood pressure 82 mm[Hg] Konstantin Warde [facility] 09-26-2023 16:48-0400 Heart rate 126 /min Konstantin Warde [facility] 09-26-2023 16:48-0400 Mean blood pressure 101 mm[Hg] Konstantin Warde [facility] 09-26-2023 16:48-0400 Respiratory rate 18 /min Konstantin Zohaib [facility] 09-26-2023 16:48-0400 SaO2% (BldA) [Mass fraction] 100 % Konstantin Zohaib [facility] 09-26-2023 16:48-0400 Systolic blood pressure 139 mm[Hg] Konstantin Zohaib [facility] 09-26-2023 16:30-0400 Diastolic blood pressure 96 mm[Hg] Konstantin Penny [facility] 09-26-2023 16:30-0400 Mean blood pressure 105 mm[Hg] Konstantin Penny [facility] 09-26-2023 16:30-0400 Respiratory rate 18 /min Konstantin Penny [facility] 09-26-2023 16:30-0400 Systolic blood pressure 122 mm[Hg] Konstantin Penny [facility] 09-26-2023 14:45-0400 Respiratory rate 18 /min Konstantin Penny [facility] 09-26-2023 14:13-0400 Body temperature 98.6 [degF] Konstantin Penny [facility] 07-31-2023 18:01-0500 Diastolic blood pressure 87 mm[Hg] Jignesh Dumont [facility] 07-31-2023 18:01-0500 Heart rate 121 /min Jignesh Tim [facility] 07-31-2023 18:01-0500 Mean blood pressure 99 mm[Hg] Jignesh Tim [facility] 07-31-2023 18:01-0500 Respiratory rate 16 /min Jignesh Tim [facility] 07-31-2023 18:01-0500 SaO2% (BldA) [Mass fraction] 99 % Jignesh Tim [facility] 07-31-2023 18:01-0500 Systolic blood pressure 123 mm[Hg] Jignesh Tim [facility] 07-31-2023 17:00-0500 Diastolic blood pressure 77 mm[Hg] Jignesh Tim [facility] 07-31-2023 17:00-0500 Heart rate 96 /min Jignesh Tmi [facility] 07-31-2023 17:00-0500 Mean blood pressure 92 mm[Hg] Jignesh Tim [facility] 07-31-2023 17:00-0500 Systolic blood pressure 122 mm[Hg] Jignesh Tim [facility] 07-31-2023 16:07-0500 Diastolic blood pressure 90 mm[Hg] Jignesh Tim [facility] 07-31-2023 16:07-0500 Heart rate 117 /min Jignesh Tim [facility] 07-31-2023 16:07-0500 Mean blood pressure 105 mm[Hg] Jignesh Dumont [facility] 07-31-2023 16:07-0500 Respiratory rate 19 /min Jignesh Tim [facility] 07-31-2023 16:07-0500 SaO2% (BldA) [Mass fraction] 100 % Jigneshjeannette Dumont [facility] 07-31-2023 16:07-0500 Systolic blood pressure 135 mm[Hg] Jignesh Dumont [facility] 07-31-2023 16:06-0500 Respiratory rate 18 /min Jignesh Tim [facility] 07-31-2023 15:34-0500 Body temperature 97.88 [degF] Jignesh Dumont [facility] 07-31-2023 15:34-0500 Heart rate 136 /min Jignesh Tim [facility] 07-31-2023 15:34-0500 Respiratory rate 18 /min Jignesh Dumont [facility] 07-19-2023 12:40-0500 Body height 165.1 cm Jennifer Duran Other [facility] [email or web address] Other 04-30-2023 18:19-0500 Diastolic blood pressure 82 mm[Hg] DO Jennifer Duran Work Phone: [facility] 04-30-2023 18:19-0500 Heart rate 128 /min DO Jennifer Duran Work Phone: [facility] 04-30-2023 18:19-0500 Respiratory rate 18 /min DO Jennifer Duran Work Phone: [facility] 04-30-2023 18:19-0500 SaO2% (BldA) [Mass fraction] 99 % DO Jennifer Duran Work Phone: [facility] 04-30-2023 18:19-0500 Systolic blood pressure 116 mm[Hg] DO Jennifer Duran Work Phone: [facility] 04-30-2023 16:43-0500 Body height 165.1 cm DO Jennifer Duran Work Phone: [facility] 04-30-2023 16:43-0500 Body temperature 98.1 [degF] DO Jennifer Duran Work Phone: [facility] 04-30-2023 16:43-0500 Body weight 62.3 kg DO Jennifer Duran Work Phone: [facility] 04-24-2023 15:51-0500 Diastolic blood pressure 81 mm[Hg] Jignesh Dumont [facility] 04-24-2023 15:51-0500 Heart rate 98 /min Jignesh Dumont [facility] 04-24-2023 15:51-0500 Mean blood pressure 94 mm[Hg] Jignesh Dumont [facility] 04-24-2023 15:51-0500 Respiratory rate 17 /min Jignesh Tim [facility] 04-24-2023 15:51-0500 SaO2% (BldA) [Mass fraction] 99 % Jignesh Tim [facility] 04-24-2023 15:51-0500 Systolic blood pressure 120 mm[Hg] Jignesh Tim [facility] 04-24-2023 15:00-0500 Diastolic blood pressure 72 mm[Hg] Jignesh Tim [facility] 04-24-2023 15:00-0500 Heart rate 85 /min Jignesh Tim [facility] 04-24-2023 15:00-0500 Mean blood pressure 87 mm[Hg] Jignesh Tim [facility] 04-24-2023 15:00-0500 Respiratory rate 16 /min Jignesh Tim [facility] 04-24-2023 15:00-0500 SaO2% (BldA) [Mass fraction] 96 % Jignesh Tim [facility] 04-24-2023 15:00-0500 Systolic blood pressure 117 mm[Hg] Jignesh Tim [facility] 04-24-2023 14:00-0500 Diastolic blood pressure 88 mm[Hg] Jignesh Tim [facility] 04-24-2023 14:00-0500 Heart rate 99 /min Jignesh Tim [facility] 04-24-2023 14:00-0500 Mean blood pressure 100 mm[Hg] Jignesh Tim [facility] 04-24-2023 14:00-0500 Respiratory rate 18 /min Jignesh Tim [facility] 04-24-2023 14:00-0500 SaO2% (BldA) [Mass fraction] 97 % Jignesh Dumont [facility] 04-24-2023 14:00-0500 Systolic blood pressure 124 mm[Hg] Jignesh Dumont [facility] 04-24-2023 13:29-0500 Body temperature 99.14 [degF] Jignesh Dumont [facility] 04-24-2023 13:29-0500 Heart rate 118 /min Jignesh Dumont [facility] 04-03-2023 00:20-0400 Diastolic blood pressure 70 mm[Hg] DO Jennifer Duran Work Phone: [facility] 04-03-2023 00:20-0400 Heart rate 80 /min DO Jennifer Duran Work Phone: [facility] 04-03-2023 00:20-0400 SaO2% (BldA) [Mass fraction] 98 % DO Jennifer Duran Work Phone: [facility] 04-03-2023 00:20-0400 Systolic blood pressure 122 mm[Hg] DO Jennifer Duran [facility]: [facility] [facility] 04-02-2023 21:48-0400 Diastolic blood pressure 75 mm[Hg] DO Jennifer Duran Work Phone: [facility] 04-02-2023 21:48-0400 Heart rate 90 /min DO Jennifer Duran Work Phone: [facility] 04-02-2023 21:48-0400 Respiratory rate 20 /min DO Jennifer Duran Work Phone: [facility] 04-02-2023 21:48-0400 SaO2% (BldA) [Mass fraction] 98 % DO Jennifer Duran Work Phone: [facility] 04-02-2023 21:48-0400 Systolic blood pressure 109 mm[Hg] DO Jennifer Girvin Work Phone: [facility] 04-02-2023 20:23-0400 Body height 165.1 cm DO Jennifer Girvin Work Phone: [facility] 04-02-2023 20:23-0400 Body temperature 98.2 [degF] DO Jennifer Girvin Work Phone: [facility] 04-02-2023 20:23-0400 Body weight 81.64 kg DO Jennifer Girvin Work Phone: [facility] 03-29-2023 16:11-0400 Body temperature 97.8 [degF] DO Jennifer Girvin Work Phone: [facility] 03-29-2023 16:11-0400 Diastolic blood pressure 79 mm[Hg] DO Jennifer Girvin Work Phone: [facility] 03-29-2023 16:11-0400 Heart rate 104 /min DO Jennifer Girvin Work Phone: [facility] 03-29-2023 16:11-0400 Respiratory rate 16 /min DO Jennifer Girvin Work Phone: [facility] 03-29-2023 16:11-0400 SaO2% (BldA) [Mass fraction] 98 % DO Jennifer Girvin Work Phone: [facility] 03-29-2023 16:11-0400 Systolic blood pressure 123 mm[Hg] DO Jennifer Girvin Work Phone: [facility] 03-29-2023 06:35-0400 Body height 165.1 cm DO Jennifer Girvin Work Phone: [facility] 03-29-2023 06:35-0400 Body weight 87.5 kg DO Jennifer Girvin Work Phone: [facility] 03-29-2023 05:41-0400 Diastolic blood pressure 85 mm[Hg] DO Jennifer Girvin Work Phone: [facility] 03-29-2023 05:41-0400 Heart rate 110 /min DO Jennifer Duran Work Phone: [facility] 03-29-2023 05:41-0400 Respiratory rate 18 /min DO Jennifer Duran Work Phone: [facility] 03-29-2023 05:41-0400 SaO2% (BldA) [Mass fraction] 100 % DO Jennifer Duran Work Phone: [facility] 03-29-2023 05:41-0400 Systolic blood pressure 160 mm[Hg] DO Jennifer Duran Work Phone: [facility] 03-29-2023 01:39-0400 Body height 165.1 cm DO Jennifer Duran Work Phone: [facility] 03-29-2023 01:39-0400 Body temperature 97.2 [degF] DO Jennifer Duran Work Phone: [facility] 03-29-2023 01:39-0400 Body weight 87 kg DO Jennifer Duran Work Phone: [facility] 02-06-2023 04:00-0400 Diastolic blood pressure 74 mm[Hg] DO Jennifer Duran Work Phone: [facility] 02-06-2023 04:00-0400 Heart rate 79 /min DO Jennifer Duran Work Phone: [facility] 02-06-2023 04:00-0400 Respiratory rate 15 /min DO Jennifer Duran Work Phone: [facility] 02-06-2023 04:00-0400 SaO2% (BldA) [Mass fraction] 99 % DO Jennifer Duran Work Phone: [facility] 02-06-2023 04:00-0400 Systolic blood pressure 119 mm[Hg] DO Jennifer Duran Work Phone: [facility] 02-05-2023 23:41-0400 Body height 165.1 cm DO Jennifer Duran Work Phone: [facility] 02-05-2023 23:41-0400 Body temperature 98 [degF] DO Jennifer Duran Work Phone: [facility] 02-05-2023 23:41-0400 Body weight 81.64 kg DO Jennifer Duran Work Phone: [facility] 01-12-2023 14:40-0400 Body height 165.1 cm Jennifer Duran Other [facility] [email or web address] Other 01-12-2023 14:40-0400 Body mass index (BMI) [Ratio] 33.44 kg/m2 Jennifer Duran Other [facility] Other 01-12-2023 14:40-0400 Body temperature 99.5 [degF] Jennifer Duran Other [facility] Other 01-12-2023 14:40-0400 Body weight 91.17 kg Jennifer Duran Other [facility] Other 01-12-2023 14:40-0400 Diastolic blood pressure 78 mm[Hg] Jennifer Duran Other [facility] Other 01-12-2023 14:40-0400 Respiratory rate 18 /min Jennifer Enochivelisse Other [facility] Other 01-12-2023 14:40-0400 SaO2% (BldA) [Mass fraction] 97 % Jennifer Enochivelisse Other [facility] Other 01-12-2023 14:40-0400 Systolic blood pressure 110 mm[Hg] Jennifer Duran Other [facility] Other 10-11-2022 16:20-0400 Body height 165.1 cm Jennifer Duran Other [facility] Other 07-12-2022 16:20-0500 Body height 165.1 cm Jennifer Duran Other [facility] Other 07-12-2022 16:20-0500 Body mass index (BMI) [Ratio] 31.2 kg/m2 Jennifer Duran Other [facility] Other 07-12-2022 16:20-0500 Body temperature 97.2 [degF] Jennifer Duran Other [facility] Other 07-12-2022 16:20-0500 Body weight 85.05 kg Jennifer Duran Other [facility] Other 07-12-2022 16:20-0500 Diastolic blood pressure 74 mm[Hg] Jennifer Duran Other [facility] Other 07-12-2022 16:20-0500 Respiratory rate 18 /min Jennifer Duran Other [facility] Other 07-12-2022 16:20-0500 SaO2% (BldA) [Mass fraction] 99 % Jennifer Duran Other [facility] Other 07-12-2022 16:20-0500 Systolic blood pressure 106 mm[Hg] Jennifer Duran Other [facility] Other 04-28-2022 04:00-0500 Diastolic blood pressure 70 mm[Hg] DO Jennifer Roger Work Phone: [facility] 04-28-2022 04:00-0500 Heart rate 81 /min DO Jennifer Duran Work Phone: [facility] 04-28-2022 04:00-0500 SaO2% (BldA) [Mass fraction] 96 % DO Jennifer Duran Work Phone: [facility] 04-28-2022 04:00-0500 Systolic blood pressure 110 mm[Hg] DO Jennifer Duran Work Phone: [facility] 04-28-2022 03:56-0500 Body height 165.1 cm DO Jennifer Duran Work Phone: [facility] 04-28-2022 03:56-0500 Body weight 80 kg DO Jennifer Duran Work Phone: [facility] 04-28-2022 03:56-0500 Respiratory rate 18 /min DO Jennifer Duran Work Phone: [facility] 04-28-2022 00:13-0500 Body temperature 97.2 [degF] DO Jennifer Duran Work Phone: [facility] 04-12-2022 15:40-0400 Body height 165.1 cm Jennifer Duran Other [facility] [email or web address] Other 04-12-2022 15:40-0400 Body mass index (BMI) [Ratio] 30.37 kg/m2 Jennifer Duran Other [facility] Other 04-12-2022 15:40-0400 Body temperature 98.8 [degF] Jennifer Duran Other [facility] Other 04-12-2022 15:40-0400 Body weight 82.78 kg Jennifer Duran Other [facility] Other 04-12-2022 15:40-0400 Diastolic blood pressure 76 mm[Hg] Jennifer Duran Other [facility] Other 04-12-2022 15:40-0400 Respiratory rate 18 /min Jennifer Duran Other [facility] Other 04-12-2022 15:40-0400 SaO2% (BldA) [Mass fraction] 98 % Jennifre Duran Other [facility] [email or web address] Other 04-12-2022 15:40-0400 Systolic blood pressure 110 mm[Hg] Jennifer Duran Other [facility] [email or web address] Other 04-09-2022 13:32-0400 Body temperature 97.59 [degF] Chair Creston Work Phone: [facility] 04-09-2022 13:32-0400 Diastolic blood pressure 64 mm[Hg] Chair Creston Work Phone: [facility] 04-09-2022 13:32-0400 Heart rate 114 /min Chair Creston Work Phone: [facility] 04-09-2022 13:32-0400 Respiratory rate 18 /min Chair Creston Work Phone: [facility] 04-09-2022 13:32-0400 SaO2% (BldA) [Mass fraction] 97 % Chair Patria Work Phone: [facility] 04-09-2022 13:32-0400 Systolic blood pressure 116 mm[Hg] Chair Creston Work Phone: [facility] 03-26-2022 13:54-0400 Body temperature 97.9 [degF] Chair Creston Work Phone: [facility] 03-26-2022 13:54-0400 Diastolic blood pressure 75 mm[Hg] Chair Creston Work Phone: [facility] 03-26-2022 13:54-0400 Heart rate 82 /min Chair Creston Work Phone: [facility] 03-26-2022 13:54-0400 Respiratory rate 18 /min Chair Creston Work Phone: [facility] 03-26-2022 13:54-0400 SaO2% (BldA) [Mass fraction] 100 % Chair Patria Work Phone: [facility] 03-26-2022 13:54-0400 Systolic blood pressure 106 mm[Hg] Chair Patria Work Phone: [facility] 03-10-2022 13:54-0400 Body height 165.1 cm Gil Ni APRN.AIRCRAFT ENGINE MECHANIC SUPERVISOR Work Phone: [facility] 03-10-2022 13:54-0400 Body temperature 97.9 [degF] Gil Ni APRN.AIRCRAFT ENGINE MECHANIC SUPERVISOR Work Phone: [facility] 03-10-2022 13:54-0400 Body weight 83.37 kg Gil Ni APRN.AIRCRAFT ENGINE MECHANIC SUPERVISOR Work Phone: [facility] 03-10-2022 13:54-0400 Diastolic blood pressure 75 mm[Hg] Gil Ni APRN.AIRCRAFT ENGINE MECHANIC SUPERVISOR Work Phone: [facility] 03-10-2022 13:54-0400 Heart rate 95 /min Gil Ni APRN.AIRCRAFT ENGINE MECHANIC SUPERVISOR Work Phone: [facility] 03-10-2022 13:54-0400 Respiratory rate 16 /min Gil Ni APRN.AIRCRAFT ENGINE MECHANIC SUPERVISOR Work Phone: [facility] 03-10-2022 13:54-0400 SaO2% (BldA) [Mass fraction] 100 % Gil Ni APRN.AIRCRAFT ENGINE MECHANIC SUPERVISOR Work Phone: [facility] 03-10-2022 13:54-0400 Systolic blood pressure 130 mm[Hg] Gil Ni APRN.AIRCRAFT ENGINE MECHANIC SUPERVISOR Work Phone: [facility] 12-04-2021 12:49-0400 Blood Pressure Location [facility] 12-04-2021 12:49-0400 Body temperature 98.42 [degF] [facility] 12-04-2021 12:49-0400 Diastolic blood pressure 82 mm[Hg] Yamilka Orzech [facility] 12-04-2021 12:49-0400 Heart rate 110 /min Yamilka Orzech [facility] 12-04-2021 12:49-0400 SaO2% (BldA) [Mass fraction] 99 % Yamilka Orzech [facility] 12-04-2021 12:49-0400 Systolic blood pressure 126 mm[Hg] Yamilka Orzech [facility] 10-16-2021 09:10-0400 Body height 165.1 cm Jennifer Duran Other [facility] [email or web address] Other 09-14-2021 19:31-0400 Diastolic blood pressure 82 mm[Hg] DO Jennifer Duran Work Phone: [facility] 09-14-2021 19:31-0400 Heart rate 87 /min DO Jennifer Duran Work Phone: [facility] 09-14-2021 19:31-0400 Respiratory rate 18 /min DO Jennifer Duran Work Phone: [facility] 09-14-2021 19:31-0400 SaO2% (BldA) [Mass fraction] 99 % DO Jennifer Duran Work Phone: [facility] 09-14-2021 19:31-0400 Systolic blood pressure 126 mm[Hg] DO Jennifer Duran Work Phone: [facility] 09-14-2021 14:45-0400 Body height 165.1 cm DO Jennifer Duran Work Phone: [facility] 09-14-2021 14:45-0400 Body mass index (BMI) [Ratio] 30.7 kg/m2 DO Jennifer Duran Work Phone: [facility] 09-14-2021 14:45-0400 Body temperature 98 [degF] DO Jennifer Duran Work Phone: [facility] 09-14-2021 14:45-0400 Body weight 83.91 kg DO Jennifer Duran Work Phone: [facility] 04-21-2021 16:20-0500 Body height 165.1 cm Jennifer Kendallivelisse Other [facility] Other 04-21-2021 16:20-0500 Body mass index (BMI) [Ratio] 32.28 kg/m2 Jennifer Duran Other [facility] Other 04-21-2021 16:20-0500 Body temperature 98.3 [degF] Jennifer Duran Other [facility] Other 04-21-2021 16:20-0500 Body weight 88 kg Jennifer Duran Other [facility] Other 04-21-2021 16:20-0500 Diastolic blood pressure 82 mm[Hg] Jennifer Duran Other [facility] Other 04-21-2021 16:20-0500 SaO2% (BldA) [Mass fraction] 98 % Jennifer Roger Other [facility] Other 04-21-2021 16:20-0500 Systolic blood pressure 124 mm[Hg] Jennifer Duran Other [facility] Other Encounters Encounter Date Encounter Type Care Provider Facility Start: 02-13-2024 End: 02-13-2024 Emergency department patient visit Ritesh Heath [facility] Start: 01-27-2024 End: 01-28-2024 Emergency department patient visit GUSTAVO DAVIES [facility] Start: 01-27-2024 End: 01-27-2024 Emergency department patient visit NO PCP NO PCP [facility] Start: 01-22-2024 End: 01-22-2024 Emergency department patient visit Eren Mireles Emely WATKINS Work Phone: [facility] Comment on above: Cyst of left ovary ( Primary Dx) Start: 01-19-2024 End: 01-19-2024 ambulatory DO Jennifer Duran Work Phone: [facility] Work Phone: Start: 01-19-2024 End: 01-19-2024 Patient encounter procedure DO Jennifer Duran Work Phone: [facility] Work Phone: Start: 12-07-2023 ambulatory DO Jennifer roberts Work Phone: [facility] Work Phone: Start: 12-07-2023 Non-patient / Non-visit DO Jennifer Duran Work Phone: [facility] Work Phone: Start: 11-25-2023 End: 11-25-2023 Patient encounter procedure DO Jennifer Duran Work Phone: [facility] Work Phone: Start: 11-25-2023 End: 11-25-2023 ambulatory DO Jennifer Duran Work Phone: [facility] Work Phone: Start: 11-23-2023 End: 11-23-2023 ambulatory [facility] Start: 11-09-2023 End: 11-09-2023 ambulatory [facility] Start: 11-08-2023 End: 11-08-2023 Emergency department patient visit DO Jnenifer Duran Work Phone: [facility]-Emergency Room Work Phone: Start: 11-08-2023 End: 11-08-2023 Emergency department patient visit Eren Camejo DO Work Phone: [facility] ED Comment on above: Toothache (Primary D x) Start: 10-25-2023 End: 10-26-2023 Emergency department patient visit [facility] Start: 10-25-2023 End: 10-26-2023 Emergency department patient visit TARIK [facility] Start: 10-25-2023 End: 10-25-2023 Emergency department patient visit NO PCP NO PCP [facility] Start: 10-25-2023 End: 10-26-2023 Emergency department patient visit HANSON [facility] Start: 10-19-2023 End: 10-19-2023 ambulatory TARUN BRADEN Not Available Start: 10-18-2023 End: 10-18-[address] [facility] Work Phone: Start: 10-18-2023 End: 10-18-2023 Patient encounter procedure [facility] [place] Work Phone: Start: 09-29-2023 End: 09-30-2023 Emergency department patient visit Ritesh Heath [facility] Start: 09-26-2023 End: 09-26-2023 Emergency department patient visit Konstantin Penny [facility] Start: 09-06-2023 End: 09-06-2023 Emergency department patient visit DESTINI COVARRUBIAS [facility] Start: 07-31-2023 End: 07-31-2023 Emergency department patient visit Jignesh Dumont [facility] Start: 07-28-2023 End: 07-28-2023 ambulatory PHYSICIAN NO [facility] Work Phone: Start: 07-28-2023 End: 07-28-2023 Patient encounter procedure PHYSICIAN NO [facility] [place] Work Phone: Start: 07-19-2023 End: 07-19-2023 ambulatory Jennifer Duran Other [facility] Other Start: 07-19-2023 Telephone encounter Jennifer Duran [facility] [place] Start: 06-22-2023 End: 06-23-2023 Emergency department patient visit EVGENY SEN MD Facility:[facility] Start: 06-07-2023 End: 06-07-2023 ambulatory Jennifer Duran Other [facility] Other Start: 06-07-2023 Telephone encounter Jennifer Duran [facility] [place] Start: 05-30-2023 End: 05-30-2023 Emergency department patient visit [facility] Start: 05-17-2023 End: 05-18-2023 Emergency department patient visit Ritesh Heath [facility] Start: 05-16-2023 End: 05-16-2023 ambulatory Jennifer Duran Other [facility] Other Start: 05-16-2023 Telephone encounter Jennifer Duran [facility] [place] Start: 04-30-2023 End: 04-30-2023 Emergency department patient visit DO Jennifer Duran Work Phone: [facility]-Emergency Room Work Phone: Start: 04-24-2023 End: 04-24-2023 Emergency department patient visit Jignesh Dumont [facility] Start: 04-18-2023 End: 04-18-2023 ambulatory Jennifer Duran Other [facility] Other Start: 04-18-2023 Telephone encounter Jennifer Duran [facility] [place] Start: 04-11-2023 End: 04-11-2023 ambulatory Jennifer Duran Other [facility] Other Start: 04-11-2023 Telephone encounter Jennifer Enochivelisse [facility] [place] Start: 04-04-2023 End: 04-04-2023 ambulatory Jennifer Duran Other [facility] Other Start: 04-04-2023 Telephone encounter Jennifer Duran [facility] [place] Start: 04-02-2023 End: 04-03-2023 Emergency department patient visit DO Jennifer Duran Work Phone: [facility] Work Phone: Start: 04-01-2023 End: 04-01-2023 ambulatory Jennifer Roger Other [facility] Other Start: 04-01-2023 Telephone encounter Jennifer Duran [facility] [place] Start: 03-29-2023 Telephone encounter Jennifer Duran [facility] [place] Start: 03-29-2023 End: 03-29-2023 Evaluation and management of inpatient DO Jennifer Duran Work Phone: [facility] [place] [facility] Work Phone: Start: 03-29-2023 End: 03-29-2023 observation encounter DO Jennifer Duran Work Phone: [facility] Work Phone: Start: 03-29-2023 End: 03-29-2023 ambulatory Jennifer Duran [place] [employer] Other Start: 03-13-2023 End: 03-13-2023 ambulatory DO Jennifer Duran Work Phone: [facility] Work Phone: Start: 03-13-2023 End: 03-13-2023 Patient encounter procedure DO Jennifer Duran Work Phone: [facility]-Flu Vaccine Start: 03-02-2023 End: 03-02-2023 ambulatory Jennifer Duran Other [facility] Other Start: 03-02-2023 Telephone encounter Jennifer Duran [facility] [place] Start: 02-05-2023 End: 02-06-2023 Emergency department patient visit DO Jennifer Duran Work Phone: [facility]-Emergency Room Work Phone: Start: 01-12-2023 End: 01-12-2023 ambulatory Jennifer Duran Other [facility] Other Start: 01-12-2023 Office outpatient visit 15 minutes Jennifer Duran [facility] [place] Start: 12-09-2022 End: 12-09-2022 ambulatory Jennifer Duran Other [facility] Other Start: 12-09-2022 Telephone encounter Jennifer Duran [facility] Start: 10-11-2022 End: 10-11-2022 ambulatory Jennifer Duran Other [facility] Other Start: 10-11-2022 Telephone encounter Jennifer Duran [facility] [place] Start: 09-22-2022 End: 09-22-2022 ambulatory Jennifer Duran Other [facility] Other Start: 09-22-2022 Telephone encounter Jennifer Duran [facility] [place] Start: 07-28-2022 End: 07-28-2022 ambulatory BELKIS SANDOVAL Facility: Start: 07-12-2022 End: 07-12-2022 ambulatory Jennifer Duran Other [facility] Other Start: 07-12-2022 Office outpatient visit 15 minutes Jennifer Duran [facility] [place] Start: 07-12-2022 Telephone encounter Jennifer Duran [facility] [place] Start: 06-02-2022 End: 06-02-2022 ambulatory Jennifer Duran Other [facility] Other Start: 06-02-2022 Telephone encounter Jennifer Duran [facility] Start: 05-04-2022 End: 05-04-2022 ambulatory Jennifer Duran Other [facility] Other Start: 05-04-2022 Telephone encounter [facility] Start: 04-30-2022 Telephone encounter Gil arechiga APRN.CNP Work Phone: Hematology/Oncology Comment on above: Lab Orders Start: 04-28-2022 Evaluation and management of inpatient DO Jennifer Duran Work Phone: [facility] [place] Start: 04-28-2022 observation encounter DO Jennifer Duran Work Phone: [facility] Work Phone: Start: 04-12-2022 End: 04-12-2022 ambulatory Jennifer Duran Other [facility] Other Start: 04-12-2022 Office outpatient visit 15 minutes [facility] Start: 04-12-2022 Telephone encounter Jennifer Duran [facility] Start: 04-09-2022 End: 04-10-2022 ambulatory Stephenie Suh 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 [employer] Comment on above: Art Therapy Iron deficiency anem ia due to chronic blood loss (Primary Dx); Malabsorption of iron; Cyst of left ovary Start: 03-26-2022 End: 03-27-2022 ambulatory GIL NI Facility:[facility] Start: 03-26-2022 End: 03-26-2022 ambulatory Chair Anton España Work Phone: Hematology/Oncology Comment on above: Iron deficiency anem ia due to chronic blood loss (Primary Dx); Malabsorption of iron; Cyst of left ovary Start: 03-15-2022 Telephone encounter Sharon Saavedra WILDLIFE MANAGER H ematology/Oncology Comment on above: Social Work Services Start: 03-10-2022 End: 03-11-2022 ambulatory Gil Ni LOZENGE DOUGH MIXER.AIRCRAFT ENGINE MECHANIC SUPERVISOR Work Phone: Hematology/Oncology Comment on above: Iron deficiency anem ia due to chronic blood loss (Primary Dx); Malabsorption of iron Start: 03-10-2022 End: 03-10-2022 Patient encounter procedure Gil Ni LOZENGE DOUGH MIXER.AIRCRAFT ENGINE MECHANIC SUPERVISOR Work Phone: [facility] Start: 02-18-2022 Telephone encounter Gil arechiga LOZENGE DOUGH MIXER.AIRCRAFT ENGINE MECHANIC SUPERVISOR Work Phone: Hematology/Oncology Comment on above: Lab Orders Start: 02-16-2022 End: 02-16-2022 ambulatory Jennifer Duran Other [facility] Other Start: 02-16-2022 Telephone encounter Jennifer Duran [facility] Start: 02-12-2022 End: 02-12-2022 Patient encounter procedure DO Jennifer Duran Work Phone: [facility] Start: 01-07-2022 End: 01-07-2022 ambulatory Jennifer Duran Other [facility] Other Start: 01-07-2022 Telephone encounter Jennifer Duran [facility] [place] Start: 12-04-2021 End: 12-04-2021 Patient encounter procedure Yamilka Lorenzo [facility] Start: 10-29-2021 End: 10-29-2021 ambulatory Jennifer Duran Other [facility] Other Start: 10-29-2021 Telephone encounter Jennifer Duran [facility] Start: 10-16-2021 End: 10-16-2021 ambulatory Jennifer Duran Other [facility] Other Start: 10-16-2021 Office outpatient visit 15 minutes Jennifer Duran [facility] [place] Start: 09-21-2021 End: 09-21-2021 ambulatory Jennifer Duran Other [employer] Other Start: 09-21-2021 Telephone encounter Jennifer Duran [facility] [place] Start: 09-14-2021 End: 09-14-2021 Emergency department patient visit DO Jennifer Duran Work Phone: [facility]-Emergency Room Start: 08-18-2021 End: 08-18-2021 ambulatory Jennifer Duran Other [facility] Other Start: 08-18-2021 Telephone encounter Jennifer Duran [facility] [place] Start: 08-11-2021 End: 08-11-2021 ambulatory Jennifer Duran Other [facility] Other Start: 08-11-2021 Telephone encounter Jennifer Duran [facility] Start: 08-03-2021 End: 08-03-2021 ambulatory Jennifer Duran Other [facility] Other Start: 08-03-2021 Telephone encounter Jennifer Duran [facility] Start: 07-04-2021 End: 07-04-2021 Patient encounter procedure DO Jennifer Duran Work Phone: [facility] [place] Start: 06-04-2021 End: 06-04-2021 ambulatory Jennifer Duran Other [facility] Other Start: 06-04-2021 Telephone encounter Jennifer Duran [facility] Start: 05-18-2021 End: 05-18-2021 ambulatory Jennifer Duran Other [facility] Other Start: 05-18-2021 Telephone encounter Jennifer Duran [facility] Start: 04-21-2021 End: 04-21-2021 ambulatory Jennifer Duran Other [facility] [email or web address] Other Start: 04-21-2021 Encounter for genera l adult medical examination without abnormal findings Jennifer Duran [facility] Start: 04-21-2021 Periodic preventive med est patient 18-39 yrs Jennifer Enochivelisse [facility] Procedures Date Procedure Procedure Detail Performing Clinician Start: 11-25-2023 CT of paranasal sinu s without contrast DO Jennifer Duran Work Phone: Start: 04-30-2023 Pelvic echography DO Da kelle Duran Work Phone: Start: 04-30-2023 Transvaginal echography DO Jennifer Duran Work Phone: Start: 03-29-2023 Computed tomography of abdomen and pelvis with contrast DO Jennifer Duran Work Phone: Start: 03-29-2023 Transvaginal echography DO Jennifer Duran Work Phone: Start: 03-29-2023 Pelvic echography DO Da kelle Duran Work Phone: Start: 02-06-2023 Pelvic echography DO Da vidottie Duran Work Phone: Start: 02-06-2023 Transvaginal echography DO Jennifer Duran Work Phone: Start: 02-05-2023 Computed tomography of abdomen and pelvis with contrast DO Jennifer Duran Work Phone: Start: 09-14-2021 Computed tomography of abdomen and pelvis with contrast DO Jennifer Duran Work Phone: Start: 09-14-2021 Pelvic echography DO Da keilad Roger Work Phone: Start: 09-14-2021 Transvaginal echography DO Jennifer Duran Work Phone: Plan of Treatment Date Care Activity Detail Author Start: 01-12-2024 Influenza vaccination Flu vaccine (# 1) [facility] Start: 12-07-2023 Patient referral [facility] Work Phone: Start: 03-30-2023 Comprehensive metabo lic 2000 panel - Serum or Plasma [facility] Start: 03-30-2023 [facility] Start: 03-29-2023 [facility] Start: 03-29-2023 Referral to director internal control [facility] Start: 03-29-2023 Hospital admission [facility] Start: 03-29-2023 [facility] Start: 03-29-2023 Computed tomography of abdomen and pelvis with contrast CT abdomen pelvis w con [facility] Start: 03-29-2023 CT Abdomen and Pelvi s W contrast IV [facility] Start: 03-29-2023 Transvaginal echography US transvagi nal [facility] Start: 03-29-2023 US Pelvis transvaginal [facility] Start: 03-29-2023 Pelvic echography US pelvic complete [facility] Start: 03-29-2023 US Pelvis [facility] Start: 02-11-2023 COVID-19 Vaccine ( season) COVID-19 Vaccine () [facility] Start: 02-06-2023 Pelvic echography US pelvic complete [facility] Start: 02-06-2023 US Pelvis [facility] Start: 02-06-2023 Transvaginal echography US transvagi [facility] Start: 02-06-2023 US Pelvis transvaginal [facility] Start: 02-05-2023 Computed tomography of abdomen and pelvis with contrast CT abdomen pelvis w con [facility] Start: 02-05-2023 CT Abdomen and Pelvi s W contrast IV [facility] Start: 05-05-2022 End: 07-05-2022 CBC W Auto Differential panel - Blood CBC + DIFF Lab Routine Iron deficiency anemia due to chronic blood loss Malabsorption of iron Expected: 05/05/2022, Expires: 07/05/2022 [facility] Work Phone: Comment on above: Expected: 05/05/2022 , Expires: 07/05/2022 Start: 05-03-2022 End: 07-03-2022 Comprehensive metabolic 2000 panel - Serum or Plasma COMP METABOLIC PANEL Lab Routine Iron deficiency anemia due to chronic blood loss Expected: 05/03/2022, Expires: 07/03/2022 [facility] Work Phone: Comment on above: Expected: 05/03/2022 , Expires: 07/03/2022 Start: 04-28-2022 Pelvic echography US pelvic complete [facility] Start: 04-28-2022 US Pelvis [facility] Start: 04-28-2022 CT Abdomen and Pelvi s WO contrast [facility] Start: 04-28-2022 CT of abdomen and pe lvis without contrast CT abdomen pelvis wo con [facility] Start: 04-28-2022 Transvaginal echography US transvagi nal [facility] Start: 04-28-2022 US Pelvis transvaginal [facility] Start: 02-23-2022 End: 02-20-2023 CBC W Auto Differential panel - Blood CBC + DIFF Lab Routine Iron deficiency anemia due to chronic blood loss Expected: 02/23/2022 (Approximate), Expires: 02/20/2023 [facility] Work Phone: Comment on above: Expected: 02/23/2022 (Approximate), Expires: 02/20/2023 Start: 02-23-2022 End: 02-20-2023 Cobalamin (Vitamin B12) [Mass/volume] in Serum or Plasma VITAMIN B12 BLOOD Lab Routine Iron deficiency anemia due to chronic blood loss Expected: 02/23/2022 (Approximate), Expires: 02/20/2023 [facility] Work Phone: Comment on above: Expected: 02/23/2022 (Approximate), Expires: 02/20/2023 Start: 02-23-2022 End: 02-20-2023 Comprehensive metabolic 2000 panel - Serum or Plasma COMP METABOLIC PANEL Lab Routine Iron deficiency anemia due to chronic blood loss Expected: 02/23/2022 (Approximate), Expires: 02/20/2023 [facility] Work Phone: Comment on above: Expected: 02/23/2022 (Approximate), Expires: 02/20/2023 Start: 02-23-2022 End: 02-20-2023 Ferritin [Mass/volume] in Serum or Plasma FERRITIN BLD Lab Routine Iron deficiency anemia due to chronic blood loss Expected: 02/23/2022 (Approximate), Expires: 02/20/2023 [facility] Work Phone: Comment on above: Expected: 02/23/2022 (Approximate), Expires: 02/20/2023 Start: 02-23-2022 End: 02-20-2023 Folate [Mass/volume] in Serum or Plasma FOLATE SERUM Lab Routine Iron deficiency anemia due to chronic blood loss Expected: 02/23/2022 (Approximate), Expires: 02/20/2023 [facility] Work Phone: Comment on above: Expected: 02/23/2022 (Approximate), Expires: 02/20/2023 Start: 02-23-2022 End: 02-20-2023 Iron and Iron binding capacity panel - Serum or Plasma IRON + TIBC Lab Routine Iron deficiency anemia due to chronic blood loss Expected: 02/23/2022 (Approximate), Expires: 02/20/2023 [facility] Work Phone: Comment on above: Expected: 02/23/2022 (Approximate), Expires: 02/20/2023 Start: 02-11-2022 Influenza vaccination INFLUENZA (#1) [facility] Start: 06-13-2021 DEPRESSION ASSESSMENT DEPRESSION ASS ESSMENT [facility] Start: 11-30-2020 COVID-19 VACCINE (3 - Booster for Moderna series) COVID-19 VACCINE (3 - Booster for Moderna series) [facility] Start: 08-27-2020 COVID-19 VACCINE (3 - Booster for Moderna series) COVID-19 VACCINE (3 - Booster for Moderna series) [facility] Start: 2017 HPV TESTING HPV TESTING [facility] Start: 2017 Screening for malign ant neoplasm of cervix [facility] Start: 01-11-2008 PAP TESTING PAP TESTING [facility] Start: 01-11-2008 Screening for malign ant neoplasm of cervix Pap smear [facility] Start: 2006 DTaP/Tdap/Td vaccine (1 - Tdap) DTaP/Tdap/Td vaccine (1 - Tdap) [facility] Start: 2006 Hepatitis B vaccine (1 of 3 - 19+ 3-dose series) Hepatitis B vaccine (1 of 3 - 19+ 3-dose series) [facility] Start: 2006 Urine microalbumin profile DTAP,TDAP,TD (1 - Tdap) [facility] Start: 2005 HEPATITIS C SCREENING HEPATITIS C SC REENING [facility] Start: 2005 Hepatitis C screening Hepatitis C sc reen [facility] Start: 2005 HIV SCREENING HIV SCREENING [facility] Start: 2002 HIV screening HIV screen [facility] Start: 01-11-2000 Varicella vaccine (1 of 2 - 13+ 2-dose series) Varicella vaccine (1 of 2 - 13+ 2-dose series) [facility] Start: 1999 Adult depression screening assessment DEPRESSION SCREENING [facility] Start: 1999 Depression Screen Depression Screen [facility] Start: 01-11-1988 Varicella vaccine (1 of 2 - 2-dose childhood series) Varicella vaccine (1 of 2 - 2-dose childhood series) [facility] Start: 1987 HEPATITIS B (1 of 3 - 3-dose series) HEPATITIS B (1 of 3 - 3-dose series) [facility] Start: 1987 Hepatitis B vaccine (1 of 3 - 3-dose series) Hepatitis B vaccine (1 of 3 - 3-dose series) [facility] CT Sinuses WO contrast [facility] Patient Education [facility] Work Phone: Patient referral [facility] Work Phone: [facility] Immunizations Immunization Date Immunization Notes Care Provider Iraj cevallos 03-13-2023 influenza, injectable, quadrivalent, preservative free Jennifer Duran Other [facility] 03-31-2021 influenza, seasonal, injectable Jennifer Duran Other [facility] 07-02-2020 COVID-19 Vaccine Moderna - Documentation Purposes Only Jennifer Duran Other [facility] 06-04-2020 COVID-19 Vaccine Moderna - Documentation Purposes Only Jennifer Duran Other [facility] 12-10-2008 measles, mumps and rubella virus vaccine [facility] Care NEGATED: Highlighted row has not occurred!03-23-2019 influenza, seasonal, injectable Patient Objection Jennifer Duran Other [facility] Payers Date Payer Category Payer Self-pay [id number] 2018 Unknown [id number] 1987 Unknown [id number] 2.16.84 0.1.709871.3.579.2.593 1987 Unknown [id number] 2.16.8 40.1.066833.3.579.2.182 1987 Unknown [id number] 2.16.84 0.1.669241.3.579.2.1259 1987 Unknown [id number] 2.16.8 40.1.929832.3.579.2.1286 1987 Unknown [id number] 2.16.8 40.1.940119.3.579.2.1286 1987 Unknown [id number] 2.16.8 40.1.362741.3.579.2.174 1987 Unknown [id number] 2.16.8 40.1.541616.3.579.2.174 1987 Unknown [id number] 2.16.8 40.1.103517.3.579.2.174 1987 Unknown [id number] 2.16.8 40.1.359625.3.579.2.1286 1987 Unknown [id number] 2.16.8 40.1.443478.3.579.2.1285 1987 Unknown [id number] 2.16.8 40.1.403866.3.579.2.1285 1987 Unknown [id number] 2.16.8 40.1.254354.3.579.2.1285 1987 Unknown [id number] 2.16.8 40.1.354343.3.579.2.1285 1987 Unknown [id number] 2.16.8 40.1.290399.3.579.2.1285 1987 Unknown [id number] 2.16.8 40.1.863969.3.579.2.7 1987 Unknown [id number] 2.16.8 40.1.525181.3.579.2.7 1987 Unknown [id number] 2.16.8 40.1.519828.3.579.2.7 1987 Unknown [id number] 2.16.8 40.1.592875.3.579.2.7 1987 Unknown [id number] 2.16.8 40.1.410196.3.579.2.7 1987 Unknown [id number] 2.16.8 40.1.616287.3.579.2.727 1959 Unknown [id number] Unknown [id number] Unknown [id number] Unknown [id number] 2.16.8 40.1.687494.3.579.2.531 Unknown [id number] 2.16.8 40.1.753399.3.579.2.531 Unknown [id number] 2.16.8 40.1.552749.3.579.2.531 Unknown [id number] 2.16.8 40.1.968399.3.579.2.531 Unknown [id number] 2.16.8 40.1.303817.3.579.2.531 Social History Date Type Detail Facility Start: 09-14-2021 End: 05-30-2023 Tobacco smoking status NHIS Never smoked tobacco (finding) [facility] Start: 1985 Sex Assigned At Female [facility] Tobacco smoking status Never [facility] Start: 05-30-2023 End: 09-05-2023 Sex Assigned At Female [facility] [employer] Other Start: 04-05-2018 End: 05-30-2023 Tobacco use and exposure Smokeless tobacco non-user [facility] Start: 10-27-2020 End: 03-10-2022 Alcohol intake Current drinker of alcohol (finding) [facility] Start: 04-05-2018 History SDOH Alcohol Comment socially [facility] Start: 1985 Sex Assigned At Not on file [facility] Start: 02-06-2022 End: 04-09-2022 Exposure to SARS-CoV-2 (event) Not sure [facility] History of tobacco use Passive smoker [facility] Start: 09-05-2023 End: 01-22-2024 Alcohol intake Not Asked [facility] Start: 05-30-2023 End: 09-05-2023 History of Social function [employer] How often to you hav e a drink containing alcohol? Monthly or less [employer] How many standard drinks containing alcohol do you have on a typical day? 1 or 2 [facility] How often do you hav e 6 or more drinks on 1 occasion? Less than monthly [facility] Start: 05-30-2023 Alcohol Comment social [facility] Goals Date Patient Goal Desired Activity /State Functional Status Date Assessment Result Facility 09-29-2023 Functional Status N/A [facility] 09-26-2023 Functional Status N/A [facility] 07-31-2023 Functional Status N/A [facility] 04-24-2023 Functional Status N/A [facility] 03-29-2023 Functional status Patient at Baseline [facility] Work Phone: 12-04-2021 Functional Status N/A [facility] Mental Status Date Assessment Result Facility 03-29-2023 Cognitive function Cognitive Sta tus Patient at Baseline [facility] Work Phone: Clinical Notes 03-19-2019 to 02-13-2024 Discharge InstructionsAttachmentsDischarge InstructionsAttachments Note Date & Type Note Facility 02-13-2024 Note ED Patient Education Note Dentistry Dental Pain Dental pain is often a sign that something is wrong with your teeth or gums. It is also something that can occur following dental treatment. If you have dental pain, it is important to contact your dental care provider, especially if the cause of the pain has not been determined. Dental pain may be of varying intensity and can be caused by many things, including: ? Tooth decay (cavities or caries). Cavities are caused by bacteria that produce acids that irritate the nerve of your tooth, making it sensitive to air and hot or cold temperatures. This eventually causes discomfort or pain. ? Abscess or infection. Once the bacteria reach the inner part of the tooth (pulp), a bacterial infection (dental abscess) can occur. Pus typically collects at the end of the root of a tooth. ? Injury. ? A crack in the tooth. ? Gum recession exposing the root, and possibly the nerves, of a tooth. ? Gum (periodontal)disease. ? Abnormal grinding or clenching. ? Poor or improper home care. ? An unknown reason (idiopathic). Your pain may be mild or severe. It may occur when you are: ? Chewing. ? Exposed to hot or cold temperatures. ? Eating or drinking sugary foods or beverages, such as soda or candy. Your pain may be constant, or it may come and go without cause. Follow these instructions at home: The following actions may help to lessen any discomfort that you are feeling before or after getting dental care. Medicines ? Take wfzn-fld-jhwljxv and prescription medicines only as told by your dental care provider. ? If you were prescribed an antibiotic medicine, take it as told by your dental care provider. Do not stop taking the antibiotic even if you start to feel better. Eating and drinking Avoid foods or drinks that cause you pain, such as: ? Very hot or very cold foods or drinks. ? Sweet or sugary foods or drinks. Managing pain and swelling ? Ice can sometimes be used to reduce pain and swelling, especially if the pain is following dental treatment. ? If directed, put ice on the painful area of your face. To do this: ? Put ice in a plastic bag. ? Place a towel between your skin and the bag. ? Leave the ice on for 20 minutes, 2?3 times a day. ? Remove the ice if your skin turns bright red. This is very important. If you cannot feel pain, heat, or cold, you have a greater risk of damage to the area. Brushing your teeth ? To keep your mouth and gums healthy, brush your teeth twice a day using a fluoride toothpaste. ? Use a toothpaste made for sensitive teeth as directed by your dental care provider, especially if the root is exposed. ? Always brush your teeth with a soft-bristled toothbrush. This will help prevent irritation to your gums. General instructions ? Floss at least once a day. ? Do not apply heat to the outside of the face. ? Gargle with a mixture of salt and water 3?4 times a day or as needed. To make salt water, completely dissolve ??1 tsp (3?6 g) of salt in 1 cup (237 mL) of warm water. ? Keep all follow-up visits. This is important. Contact a dental care provider if: ? You have any unexplained dental pain. ? Your pain is not controlled with medicines. ? Your symptoms get worse. ? You have new symptoms. Get help right away if: ? You are unable to open your mouth. ? You are having trouble breathing or swallowing. ? You have a fever. ? You notice that your face, neck, or jaw is swollen. These symptoms may represent a serious problem that is an emergency. Do not wait to see if the symptoms will go away. Get medical help right away. Call your local emergency services (911 in the [place] Do not drive yourself to the hospital. Summary ? Dental pain may be caused by many things, including tooth decay and infection. ? Your pain may be mild or severe. ? Take vdwl-wle-oueokjg and prescription medicines only as told by your dental care provider. ? Watch your dental pain for any changes. Let your dental care provider know if your symptoms get worse. This information is not intended to replace advice given to you by your health care provider. Make sure you discuss any questions you have with your health care provider. Document Revised: 03/04/2021 Document Reviewed: 03/04/2021 [employer] Patient Education ? 2023 [employer] [facility] 01-22-2024 [facility] Discharg e instructions Eren Camejo, - 01/22/2024 12:25 PM EDT Use Ultram [...] be sent through Care Everywhere.Ovarian Cyst: Functional (Belarusian)documented in this encounter [facility] 11-08-2023 [facility] Discharg e instructions Eren Camejo DO - 11/08/2023 12:01 PM EDT Use clindamycin as prescribed. Continue the pain medicine that you have at home as needed for pain. Follow-up with dentist as scheduled The following attachments cannot be sent through Care Everywhere.Tooth and Gum Pain (Belarusian)documented in this encounter [facility] 10-18-2023 Evaluation note Authored October 18, 2023 3:45pm The above note written by __ _Polly Collado____ acting as human recorder, note dictated by Dr. Mcfadden .I performed the above HPI, ROS, and Examination. I formulated and dictated the treatment plan and was present for entire encounter. Jennifer Duran D.O. [facility] Work Phone: 1(691) 247-179104-19-2024 Evaluation + Plan noteExtracted from: Title:ED Note Author:Ivana Ritesh Debbie. Date :09/30/23 AP (abdominal pain) (R10.9: Unspecified [...] Diagnostic Tests Pending * Urine Culture 09/30/23 [facility]04-19-2024 Hospital Discharge instructions Patient Education 09/30/2023 [...] (oophorectomy). Follow these instructions at home: Take lzhr-qmd-wopbmtc and prescription medicines only as told by [...] provider. Document Revised: 11/06/2020 Document Reviewed: 11/06/2020 [employer] Patient Education 2022 [employer] Follow Up Care 09/29/2023 23:40:10 With:Ino Royal Address: [address] [facility] [address] [place] [address]- Business (1) When:10/03/2023 [facility]04-15-2024 Hospital Discharge instructions Follow Up Care 09/26/2023 13:55:08 With:[employer] Address: [address] [place] [address]- Business (1) When:09/29/2023 17:49:12 With:Tarun BRADEN Address: [address] , [place] [address]- Business (1) When:09/29/2023 17:49:03 With:XXXX NONE Address: [place] When:Within 3 Day(s) [facility]04-15-2024 Evaluation + Plan noteExtracted from: Title:ED [...] q12hr, # 20 tab(s), Refills(s) 0, Pharmacy: [facility]/pharmacy #[id number], 165, cm, 09/26/23 14:18:00 EDT, Height/Length Dosing, 81.2, kg, 09/26/23 14:18:00 EDT, Weight Dosing hyoscyamine, 0.125 mg = 1 tab(s), Oral, QID, X 5 day(s), # 20 tab(s), Refills(s) 0, Pharmacy: [facility]/pharmacy #[id number], 165, cm, 09/26/23 14:18:00 EDT, Height/Length Dosing, 81.2, kg, 09/26/23 14:18:00 EDT, Weight Dosing ketorolac, 30 mg = 1 mL, Injection, IV, Once, Stop date 09/26/23 15:40:00 EDT, STAT, Start date 09/26/23 15:40:00 EDT, 09/26/23 15:40:00 EDT polyethylene glycol 3350, 17 gm, Oral, Daily, X 7 day(s), # 119 gm, Refills(s) 0, Pharmacy: [facility]/pharmacy #[id number], 165, cm, 09/26/23 14:18:00 EDT, Height/Length Dosing, 81.2, kg, 09/26/23 14:18:00 EDT, Weight Dosing Beta hCG Qual CBC w/ Auto Diff Comprehensive Metabolic Panel CT Abdomen/Pelvis w/ Contrast Drug Screen Urine eGFR Extra Blue Tube Extra SST Tube Lipase Level UA with Cult Rflx US Pelvis Non-OB Complete US Transvaginal Non-OB [facility]02-18-2024 Hospital Discharge instructions Patient Education 07/31/2023 [...] Follow these instructions at home: Medicines Take sshq-tfx-ocupcjj and prescription medicines only as told by [...] Watch your condition for any changes. Take emey-bmo-etzlkdt and prescription medicines only as told by [...] provider. Document Revised: 07/18/2020 Document Reviewed: 10/08/2019 [employer] Patient Education 2022 [employer]. Follow Up Care 07/31/2023 15:34:13 With:Follow-up with your WET PROCESS TECHNICIAN at [facility] Address:Unknown When:08/03/2023 17:52:19 Comments:Call the office [...] weakness, or any new or worsening symptoms. [facility]02-15-2024 Evaluation note* Author Jennifer Duran [facility] Authored July 28, 2023 1:18pm The above note written by __ _Polly Collado____ acting as human recorder, note dictated by Dr. Mcfadden .I performed the above HPI, ROS, and Examination. I formulated and dictated the treatment plan and was present for entire encounter. Jennifer Durna D.O. [facility] Work Phone: 1(876) 531-960902-06-2024 Evaluation note* Encounter Date Diagnosis Assessment Notes Treatment Notes Treatment Clinical Notes Jul, Anxiety (ICD-10 - F41.9) [facility] Other 02-06-2024 Evaluation note* Encounter Date Diagnosis [...] an appointment with her specialist through the [facility] and is scheduled at the end of this month (July) and is hoping to have a total hysterectomy. [facility] Other 12-26-2023 Evaluation note* Encounter Date Diagnosis Assessment Notes Treatment Notes Treatment Clinical Notes May, Cough (ICD-10 - R05.9) [facility] Other 12-04-2023 Evaluation note* Encounter Date Diagnosis Assessment Notes Treatment Notes Treatment Clinical Notes May, Anxiety (ICD-10 - F41.9) [facility] Other 11-12-2023 Hospital Discharge instructions Patient Education [...] Follow these instructions at home: Medicines Take uhgd-mcq-fqwgrmf and prescription medicines only as told by [...] Watch your condition for any changes. Take knyd-ocv-zmkkawm and prescription medicines only as told by [...] provider. Document Revised: 07/18/2020 Document Reviewed: 10/08/2019 [employer] Patient Education 2022 [employer]. Follow Up Care 04/24/2023 13:13:55 With:YOUR OBGYN at [facility] Address:Unknown When:04/27/2023 15:50:22 Comments:Seek immediate medical [...] develop any new or worsening symptoms. 3. [facility]11-12-2023 Evaluation + Plan noteExtracted from: Title:ED Note Author:Jignesh Dumont DO Date:06/24/22 Abdominal pain, acute, left lower quadrant (R10.32: Left lower quadrant pain) Ordered: oxycodone, 5 mg = 1 cap(s), Oral, q6hr, PRN Pain 8-10, X 3 day(s), # 12 cap(s), Refills(s) 0, Pharmacy: [facility]/pharmacy #[id number], 165.1, cm, 04/24/23 13:32:00 EST, [...] Saline Lock Insert UA With Cult Reflex [facility]11-06-2023 Evaluation note* Encounter Date Diagnosis Assessment [...] an appointment with her specialist at the [facility] in June (2023) which was the soonest they could get her in. She is hoping that they will at least remove the ovary but she is willing to have a total hysterectomy if they will do it. 1:13 PM - 1:20 PM [facility] Other 10-20-2023 Evaluation note* Encounter Date Diagnosis Assessment Notes Treatment Notes Treatment Clinical Notes Mar, Anxiety (ICD-10 - F41.9) [facility] [email or web address] Other 10-17-2023 Progress note Author Christi Aquino [facility] March 29, 2023 4:11pm Note Date/Time March 29, 2023 1 1:35am [facility] [address] [place] [address] Progress Note Signed with Addenda Patient: Livia Noyola MR#: [id number] : 1985 Acct:[id number] Age/Sex: 38 / F Adm Date: 3 Loc: 3T Room: [address] [place] [address] Type: ADM IN Attending Dr: Christi Aquino MD Copies to: ~ ADDENDUM1 Upon re-evaluation in the afternoon, patient feels better and would like to go home. Prescribed pain medications as needed as directed. Advised to continue to follow up with [facility] staff senior quality manager. 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 senior quality manager eval requested for further evaluation. 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 Afebrile here, no leukocytosis or obvious evidence of infectious process. Placed on Pain meds regimen IV and PO. Ongoing monitoringfor now. Documented By: Christi Aquino MD 03/29/23 11 32 Signed By: <Electronically signed by Christi Aquino MD> 03/29/23 135[address] [facility] Work Phone: 1(500) 966-311110-17-2023 History and physical note Author Megan Muniz [facility] March 29, 2023 7:29am Note Date/Time March 29, 2023 7 :29am [facility] [address] [place] [address] Hospitalist H&P Signed Patient: Livia Noyola MR#: [id number] : 1985 Acct:[id number] Age/Sex: 38 / F Adm Date: 3 Loc: 3T Room: [address] [place] [address] Type: ADM IN Attending Dr: Christi Aquino [...] findings. The patient case was discussed with WET PROCESS TECHNICIAN, who was not convinced that left ovarian [...] in the computer system reviewed [facility] Medical History Anemia Endometriosis Surgical History History [...] % (Auto) 42.8 % (.) 03/29/23 01:40 Kay % (Auto) 7.3 % (.) 03/29/23 01:40 Eos % (Auto) 1.8 % (.) 03/29/23 01:40 Baso % (Auto) 1.3 % (.) 03/29/23 01:40 Nucleat RBC Rel Count 0.1 /100 WBC (0-0.5) 03/29/23 01:40 Neut # (Auto) 3.5 x10E3/uL (1.8-7.7) 03/29/23 01:40 Lymph # (Auto) 3.2 x10E3/uL (1.00-4.8) 03/29/23 01:40 Kay # (Auto) 0.6 x10E3/uL (0.0-0.8) 03/29/23 01:40 [...] pH 7.5 (5.0-9.0) 03/29/23 02:53 Ur Specific [place] 1.003 (1.001-1.030) 03/29/23 02:53 Urine Protein Negative [...] she does have tachycardia We will consult WET PROCESS TECHNICIAN Check lactic acid 2. Microcytic iron deficiency [...] <Electronically signed by Megan Muniz MD> 03/29/23728 [facility] Work Phone: 1(337) 351-590508-02-2023 Evaluation note* Encounter Date Diagnosis Assessment Notes [...] relief. She would need to see an system support specialist for this. She is agreeable [...] and schedule an appointment to see Dr. aCstillo again. [facility] Other 06-29-2023 Evaluation note* Encounter Date Diagnosis Assessment Notes Treatment Notes Treatment Clinical Notes Nov, Acute sinusitis (ICD-10 - J01.90) Nov, Cough (ICD-10 - R05.9) [facility] Other 05-01-2023 Evaluation note* Encounter Date Diagnosis [...] no discrepancies noted. Rx was called into [facility], spoke with Chad TOWNSEND, the Xanax 0.25 MG tablets are out of stock currently so her dose was increased to 0.5 MG and she was instructed to take 1/2 tablet q8-12 hours as needed. Only 12 tablets were called in. Pt voiced understanding when notified of this change. October, Other 3:17 PM - 3:23 PM [facility] Other 04-12-2023 Evaluation note* Encounter Date Diagnosis [...] Sep, Other 12:46 PM - 12:51 PM [facility] Other 01-30-2023 Evaluation note* Encounter Date Diagnosis Assessment Notes Treatment Notes Treatment Clinical Notes Jun, Anxiety (ICD-10 - F41.9) [facility] Other 01-30-2023 Evaluation note* Encounter Date Diagnosis [...] Side effects/risks/benefi ts of medication were reviewed. [facility] Other 12-21-2022 Evaluation note* Encounter Date Diagnosis [...] May, Other 3:27 PM - 3:32 PM [facility] Other 11-18-2022 Miscellaneous Notes* Telephone Encounter - Tabby Steele Ma - 04/30/2022 2:25 PM EST CMP if needed. Tabby Steele Ma [facility]* Encounter Date Diagnosis Assessment Notes Treatment Notes Treatment Clinical Notes Mar, Anxiety (ICD-10 - F41.9) [place] [employer] Other 10-31-2022 Evaluation note* Encounter Date Diagnosis [...] done and then return to see her WET PROCESS TECHNICIAN at the [facility] because she feel she has another ovarian cyst. [facility] Other 10-28-2022 Miscellaneous Notes* Allied Health - [...] 2:21 PM PAGER/CONTACT #: documented in this [facility] Miscellaneous Notes* Telephone Encounter - MARY Narvaez - 03/15/2022 12:04 PM EDT Patient appears on the First Time Treatment List for a non-oncology treatment. No psychosocial assessment is indicated. JANNA Narvaez documented in this encounter[facility] NoteHNO ID: [id number] Author: Gil Ni APRN.PIOTR Service: ? 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 Recent laboratories [place] [facility] [place] 04, 2020 show hemoglobin of 11.6 [...] and removal ovarian cyst (more content not included)...[facility]09-28-2022 History of Present illness Narrative* Gil Ni APRN.AIRCRAFT ENGINE MECHANIC SUPERVISOR - 03/10/2022 2:00 PM EDT Images from the original note were not included. 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 Recent laboratories from [facility] October 04, 2020 show hemoglobin of11.6 but [...] Hyperlipidemia Father Heart Father bypass surgery, stents, [place] Gil Ni APRN.CNP [facility] [place], [place] CC: Dr. Jennifer Duran [address] [place] [id number] I spent a total of 30 minutes on the date of the service which included preparing to see the patient, izsq-kb-tpdp patient care, completing clinical documentation, obtaining and/or reviewing separately obtained history, performing a medically appropriate examination, counseling and educating the pat ient/family/caregiver, ordering medications, tests, or procedures, independently interpreting results (not separately reported), and communicating results to the patient/family/caregiver. documented in this encounterCleveland [id number] Miscellaneous Notes* Telephone Encounter - Meaghan Ordonez - 02/18/2022 3:14 PM EDT Patient has an appt on 02/23. Would you like labs? documented in this encounterAk[facility] Evaluation note* Encounter Date Diagnosis Assessment Notes Treatment Notes Treatment Clinical Notes Feb, Iron deficiency anemia (ICD-10 - D50.9) Feb, Elevated liver enzymes (ICD-10 - R74.8) [facility] Other 07-28-2022 Evaluation note* Encounter Date Diagnosis Assessment Notes Treatment Notes Treatment Clinical Notes Dec, Anxiety (ICD-10 - F41.9) [facility] Other 06-24-2022 Hospital Discharge instructions Patient Education [...] develop this condition: Playing sports that include tite-wv-lyee contact with others. Having a skin condition [...] Follow these instructions at home: Medicines Take nnhz-thk-xdfxhmg and prescription medicines only as told by [...] 06/20/2015 Document Revised: 07/10/2019 Document Reviewed: 06/21/2017 [employer] Patient Education 2020 [employer]. 12/04/2021 13:59:11 Sinusitis, Adult Sinusitis, Adult Sinusitis [...] at home: Medicines Take, use, or apply eosi-pqy-tgtoztm and prescription medicines only as told by [...] and water are not available, use hand counselor supervisor. Do not smoke. Avoid being around people [...] 05/30/2006 Document Revised: 10/30/2018 Document Reviewed: 10/30/2018 [employer] Patient Education 2020 [employer]. 12/04/2021 13:59:10 BMI for Adults BMI for [...] height. This can be done either in [place]ian ([place] or metric measurements. Note that charts are available to help you find your BMI quickly and easily without having to do these calculations yourself. To calculate your BMI in [place]ian ([place] measurements, your health care provider will: [...] medical problems. BMI can be measured using Bel[place]ian measurements or metric measurements. To interpret your [...] 02/08/2005 Document Revised: 05/12/2018 Document Reviewed: 04/12/2018 [employer] Patient Education 2019 [employer]. [facility] 05-06-2022 Evaluation note* Encounter Date [...] October, Other 8:28 AM - 8:35 AM [facility] Other 03-01-2022 Evaluation note* Encounter Date Diagnosis Assessment Notes Treatment Notes Treatment Clinical Notes Aug, Cough (ICD-10 - R05) [facility] Other 02-21-2022 Evaluation note* Encounter Date Diagnosis [...] Jul, Other 5:43 PM - 5:48 PM [facility] Other 12-06-2021 Evaluation note* Encounter Date Diagnosis [...] May, Other 4:25 PM - 4:38 PM [facility] Other 11-09-2021 Evaluation note* Encounter Date Diagnosis [...] R63.5) Her TSH is normal at 1.04. [facility] Other 10-07-2019 History general Narrative - Reported* Type Description Date Medical History endometriosis 2012 Medical History Echocardiogram [facility] Normal, ejection fraction 60-65% Medical History MRI Brain 03-21-19 [facility] Normal Medical History anxiety Medical History pneumonia 06/2019 Surgical History Cholecystectomy Surgical History gal bladder removed 2008 Surgical History ablation - endometri osis removed off ovaries Dr Lentz 2012 Surgical History ovarian torsion 2014 Surgical History MRI pelvis 2017 Surgical History ovarian cyst removed 06/2018 Hospitalization History see above [facility] Other Consult note Author Geraldo Hatfield [facility] April 28, 2022 8:22am Note Date/Time April 28, 2022 8:22am [facility] [address] [place] [address] WET PROCESS TECHNICIAN Consult Note Signed Patient: Livia Noyola MR#: [id number] : 1985 Acct:[id number] Age/Sex: 37 / F Adm Date: 2 Loc: Room: [address] [place] [address] Type: ADM INOo Attending Dr: Kiko Saenz [...] Last Admin: 04/28/22 04:43 Dose: 10 ml MEDICAL HEALTH RESEARCHER - Exam Physical Exam Vital signs: Temp 97.7 F 04/28/22 04:18 Pulse 95 H 04/28/22 04:18 Resp 16 04/28/22 04:18 BP 136/95 04/28/22 04:18 Pulse Ox 100 04/28/22 04:18 O2 Del Method Room Air 04/28/22 04:18 Constitutional Constitutional: no acute distress Routine Respiratory Exam Respiratory: Absent respiratory distress Routine Abdominal Exam Abdominal: Present soft, normoactive bowel sounds and tenderness; Absent reboundor guarding MEDICAL HEALTH RESEARCHER - Results Laboratory Results - Last 48 hrs. 04/28/22 02:00: Urine Color Yellow, Urine Appearance Cloudy A, Urine pH 6.5, Ur Specific [place] 1.005, Urine Protein Negative, Urine Glucose (UA) [...] Creatinine Clear 132.36, Sodium 137, Potassium 3.7, [id number], Carbon Dioxide 21.1 L, Anion Gap 14.6, [...] % (Auto) 64.6, Lymph % (Auto) 28.9, Kay % (Auto) 4.5, Eos % (Auto) 1.0, Baso % (Auto) 1.0, Neut # (Auto) 5.1, Lymph # (Auto) 2.3, Kay # (Auto) 0.4, Eos # (Auto) 0.1, Baso # (Auto) 0.1, Nucleated RBC % (auto) 0.0, Platelet Estimate Normal, Plt Morphology Comment Normal, RBC Morphology N/A, Polychromasia Slight, Hypochromasia Slight, Poikilocytosis Moderate, Anisocytosis Marked, Tear Drop Cells Slight, Ovalocytes Moderate MEDICAL HEALTH RESEARCHER - A/P (1) Intractable abdominal pain: Code(s): [...] And I suggested she follow-up with her director internal control at the [facility]. Code(s): N83.202 - Unspecified ovarian cyst, left side Status: Acute Documented By: GERALDO HATFIELD MD 04/28/22816 Signed By: <Electronically signed by MD GERALDO HATFIELD> 04/28/22821 [facility] Work Phone: Evaluation + Plan note No data available for this section [facility] Evaluation noteNo assessment information available [facility] Work Phone: Evaluation noteNo InformationNort [employer] Other Evaluation note* Diagnosis Iron deficiency anemia due to chronic blood loss- Primary Iron deficiency anemia secondary to blood loss (chronic) [facility] 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 [facility] Diagnosis 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 Cyst of left ovary Other and unspecified ovarian cyst [facility] Diagnosis 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 Cyst of left ovary Other and unspecified ovarian cyst [facility] Diagnosis Iron deficiency anemia due to chronic blood loss- Primary Iron deficiency anemia secondary to blood loss (chronic) [facility] Diagnosis Onset Date Resolution Status Abdominal pain acute Ovarian cyst acute [facility] Work Phone: Evaluation note* Diagnosis Onset Date Resolution Status Abdominal pain acute Endometriosis acute Ovarian cyst acute [facility] Work Phone: Evaluation note* Author Jennifer Duran [facility] Authored July 28, 2023 12:18pm The above note written by __ _Polly Collado____ acting as human recorder, note dictated by Dr. Mcfadden .I performed the above HPI, ROS, and Examination. I formulated and dictated the treatment plan and was present for entire encounter. Jennifer Duran [facility] Work Phone: Evaluation note* Diagnosis Toothache- Primary Unspecified disorder of the teeth and supporting structures documented in this encounter [facility] note* Diagnosis Onset Date Resolution Status Anxiety acute Tachycardia acute [facility] Work Phone: Evaluation note* Diagnosis Cyst of left ovary- Primary Other and unspecified ovarian cyst documented in this encounter [facility] Discharge instructions Additional Instructions Please arrange a follow-up appointment with your [facility] director internal control.[facility] Work Phone: Hospital Discharge instructions Additional Instructions Take Motrin and Tylenol as needed for mild to moderate pain. Take oxycodone as prescribed for severe pain. Follow-up with Dr. Ness or Dr. Grayson in the office regarding further treatment with a GnRH antagonistHocking Valley [facility] Work Phone: Hospital Discharge instructions Additional Instructions Take [place] as needed for severe pain, do not drink, drive, operate heavy machinery while taking Continue clindamycin as previously ordered by her dentist Return to emergency room for fever or chills, or dental abscess Follow-up with dentist and oral surgeon as scheduledH[facility]ing [facility] Work Phone: Hospital Discharge instructionsAmbulatory Orders* Referral to Allergy/Immunology Time Frame: 12/07/23, Location: None [facility] Work Phone: Progress note No data available for this section [facility] Care Summary Purpose Family History No Family [...] bursitis of right hip (M70.61) Referral Organization [facility] Referring Provider First Name Jennifer Referring Provider Last Name Roger Referring Provider Specialty Family Prac kasi Referred Organization [facility] Referred Provider Chad Luna II Referred Address [address] [facility] Debbie TAN,KARISHMA,[address] Referred Provider Specialty Orthopedic S urgery Referral Priority Routine General Notes Angelita Trevino 01/12/2023 03:51:47 PM > referral sent p2p. pt understands that she will be contacted to schedule this appt. Reason appt consult for e zia and treatment of continued cough since covid infection Diagnosis 1 Cough (R05) Referral Organization [facility] Family Luiz Erazo Referring Provider First Name Jennifer Referring Provider Last Name Roger Referring Provider Specialty Family Prac kasi Referred Organization Unknown Facility Referred Provider Steve Donald Referred Provider Specialty Pulmonary Sally dominguez Referral Priority Routine General Notes Angelita Trevino [...] section and content) DATE CREATED AUTHOR 08/08/2020 [facility] DATE CREATED AUTHOR AUTHOR'S ORGANIZ ATION 05/03/2022 [facility] DATE CREATED AUTHOR AUTHOR'S ORGANIZ ATION 10/19/2022 [facility] DATE CREATED AUTHOR AUTHOR'S ORGANIZ ATION 06/23/2023 [facility] DATE CREATED AUTHOR AUTHOR'S ORGANIZ ATION 09/06/2023 [facility] DATE CREATED AUTHOR AUTHOR'S ORGANIZ ATION 10/21/2023 [facility] dical Specialists [facility] DATE CREATED AUTHOR AUTHOR'S ORGANIZ ATION 11/24/2023 [facility] DATE CREATED AUTHOR AUTHOR'S ORGANIZ ATION 11/27/2023 [facility] DATE CREATED AUTHOR AUTHOR'S ORGANIZ ATION 01/23/2024 [facility] DATE CREATED AUTHOR AUTHOR'S ORGANIZ ATION 01/30/2024 [facility] DATE CREATED AUTHOR AUTHOR'S ORGANIZ ATION 02/13/2024 [facility] Care Teams (unrecognized sec tion [...] Jennifer Duran , Primary Care Provider Active Amaury Barlow , Emergency Provider Active Neurophysiology Tech Relationship Specialty Start Date End Date Jennifer Duran, DO [address] [place] [address] PCP - General 11/27/07 Jennifer Duran, DO [address] [place] [address] Referring Family Practice 04/03/19 Avinash Velásquez MD [address] [place] [address] Referring WET PROCESS TECHNICIAN 11/30/21 Neurophysiology Tech Relationship Specialty Start Date End Date Jennifer Duran, DO [address] [place] [address] PCP - General 11/27/07 Jennifer Duran, DO [address] [place] [address] Referring Family Medicine 04/03/19 Avinash Velásquez MD [address] [place] [address] Referring WET PROCESS TECHNICIAN 11/30/21 Neurophysiology Tech Relationship Specialty Start Date End Date Jennifer Duran, DO [address] [place] [address] PCP - General 11/27/07 Jennifer Duran, DO [address] [place] [address] Referring Family Medicine 04/03/19 Avinash Velásquez MD [address] [place] [address] Referring WET PROCESS TECHNICIAN 11/30/21 Neurophysiology Tech Relationship Specialty Start Date End Date Jennifer Duran, DO [address] [place] [address] PCP - General 11/27/07 Jennifer Duran, DO [address] [place] [address] Referring Family Medicine 04/03/19 Avinash Velásquez MD [address] [place] [address] Referring WET PROCESS TECHNICIAN 11/30/21 Neurophysiology Tech Relationship Specialty Start Date End Date Jennifer Duran, DO [address] [place] [address] PCP - General 11/27/07 Jennifer Duran, DO [address] [place] [address] Referring Family Medicine 04/03/19 Avinash Velásquez MD [address] [place] [address] Referring WET PROCESS TECHNICIAN 11/30/21 Neurophysiology Tech Relationship Specialty Start Date End Date Jennifer Duran, DO [address] [place] [address] PCP - General 11/27/07 Jennifer Duran, DO [address] [place] [address] Referring Family Medicine 04/03/19 Avinash Velásquez MD [address] [place] [address] Referring WET PROCESS TECHNICIAN 11/30/21 Team Status: Active Member Role Status Dates Jennifer Duran , DO Primary Care Provider Active Yevgeniy Cabrera Jr, MD Emergency Provider Active Kiko Saenz , DO Admit Provider, Attending Provider Active Neurophysiology Tech Relationship Specialty Start Date End Date Jennifer Duran, DO [address] [place] [address] PCP - General 11/27/07 Jennifer Duran, DO [address] [place] [address] Referring [facility] Medicine 04/03/19 Avinash Velásquez MD [address] [facility] [address] [place] [address] Referring WET PROCESS TECHNICIAN 11/30/21 Team Status: Inactive Member Role Status [...] Care Provider Active Jaime Aleman , DO [facility] Attending Provider Active Team Status: Active Member [...] End: April 30, 2023 Elier Jackson , Emergency Provider Active St art: April 30, 2023 End: April 30, 2023 Team Status: Inactive Member Role Status Austin Duran DO Primary Care Provide r, Attending Provider Active Start: July 28, 2023 End: July 28, 2023 Team Status: Inactive Member Role Status Austin Duran DO Primary Care Provide r, Attending Provider Active Start: October 18, 2023 End: October 18, 2023 Neurophysiology Tech Relationship Specialty Start Date End Date Jennifer Duran DO [address] [place] [facility] [place] [address] PCP - General Family Medicine 09/14/23 Team [...] Services Specialty Diagnoses / Procedures Referred By Contabram t Referred To Contact Diagnoses Cyst of left ovary Iron deficiency anemia due to chronic blood loss Malabsorption of iron Procedures IRON SUCROSE INJECTION PER 1 MG Gil Ni, CATY.[address] [place] [address] Johny Treat [place] [address] [place] [address] Referral ID Status Reason Start Date Expiration Date V isits Requested Visits Authorized [id number] Authorized 03/10/2022 06/12/2022 99 99 Reason Comments [...] or prosecute any alcohol or drug abuse patient.[facility] the event this information is protected by the Federal Confidentiality of Alcohol and Drug Abuse Patient Records regulations: The Federal rules restrict any use of the information to criminally investigate or prosecute any alcohol or drug abuse patient.[facility] HospitalIn the event this information is protected by the Federal Confidentiality of Alcohol and Drug Abuse Patient Records regulations: The Federal rules restrict any use of the information to criminally investigate or prosecute any alcohol or drug abuse patient.[facility] HospitalIn the event this information is protected by the Federal Confidentiality of Alcohol and Drug Abuse Patient Records regulations: The Federal rules restrict any use of the information to criminally investigate or prosecute any alcohol or drug abuse patient.[facility] HospitalIn the event this information is protected by the Federal Confidentiality of Alcohol and Drug Abuse Patient Records regulations: The Federal rules restrict any use of the information to criminally investigate or prosecute any alcohol or drug abuse patient.[facility] the event this information is protected by the Federal Confidentiality of Alcohol and Drug Abuse Patient Records regulations: The Federal rules restrict any use of the information to criminally investigate or prosecute any alcohol or drug abuse patient.[facility] the event this information is protected by the Federal Confidentiality of Alcohol and Drug Abuse Patient Records regulations: The Federal rules restrict any use of the information to criminally investigate or prosecute any alcohol or drug abuse patient.[facility] Ordered Prescriptions (unrec ognized section and content) [...] BE BASED ON THE PRIMARY CLINICAL RECORDS. [facility]. provides no warranty or guarantee of the accuracy or completeness of information in this document.
[2024-02-13 16:10] VITALS: BP 148/86; PULSE 112; TEMP 37.2; O2SAT 100
--- NOTE | 2024-02-13 16:45 | ED_ITS ---
HPI - Dental/Oral General Chief complaint: Dental/Oral Stated complaint: DENTAL PAIN Time Seen by Provider: 02/13/24 16:35 Source: patient Mode of arrival: walk-in Limitations: no limitations History of Present Illness HPI Narrative: The patient presented with a right lower dental pain this is a second time we evaluate her within the last 2 days, she was already started 4 days ago on antibiotics Augmentin and she did not finish the course yet, she was trying to get into her dentist but she did not have an appointment yet. The patient has been using Toradol in addition to Augmentin and Percocet with no improvement of her symptoms Related Data Home Medications ?Medication ?Instructions ?Recorded ?Confirmed alprazolam 0.25 mg tablet 0.25 mg PO Q8H PRN anxiety 09/20/23 02/11/24 citalopram 20 mg tablet (Celexa) 20 mg PO DAILY 09/20/23 02/11/24 atenolol 25 mg tablet 25 mg PO Q24H 02/11/24 02/11/24 Previous Rx's ?Medication ?Instructions ?Recorded ketorolac 10 mg tablet 10 mg PO TID PRN pain #10 tabs 10/22/23 tramadol 50 mg tablet 50 mg PO Q4H PRN pain 3 days #15 10/22/23 tabs clindamycin HCl 300 mg capsule 300 mg PO Q8H 7 days #21 caps 02/13/24 Allergies Allergy/AdvReac Type Severity Reaction Status Date / Time morphine Allergy Severe itching Verified 02/11/24 13:19 prochlorperazine AdvReac Mild Anxiety Verified 02/11/24 13:19 [From Compazine] Review of Systems ROS Status of ROS 10 or more systems reviewed and unremark able except as noted in history and below [facility] Medical History (Updated 02/13/24 @ 16:58 by Luisa Ayon MD) Ovarian cyst ?N83.209 - Unspecified ovarian cyst, unspecified side (ICD-10) Endometriosis ?N80.9 - Endometriosis, unspecified (ICD-10) LLQ abdominal pain ?R10.32 - Left lower quadrant pain (ICD-10) Complex cyst of left ovary ?N83.292 - Other ovarian cyst, left side (ICD-10) Toothache ?K08.89 - Other specified disorders of teeth and supporting structures (ICD- 10) Surgical History (Updated 09/20/23 @ 06:52 by Marichuy Daily RN) History of removal of cyst ?Z98.890 - Other specified postprocedural states (ICD-10) History of cholecystectomy ?Z90.49 - Acquired absence of other specified parts of digestive tract (ICD- 10) Family History (Updated 09/20/23 @ 05:46 by Marichuy Daily RN) Family/Other No problems noted. Father Family history of CHF (congestive heart failure) Family history of COPD (chronic obstructive pulmonary disease) Family history of diabetes mellitus Family history of hypertension Family history of myocardial infarction Mother Family history of hypertension Other Family history of cancer Social History Within the past year, how often did you have a drink containing alcohol: monthly or less Within the past year, how many standard drinks containing alcohol did you have on a typical day: 1 or 2 Within the past year, how often did you have six or more drinks on one occasion: never Total score: 0 Score interpretation: A score less than 3 is consistent with normal alcohol consumption. Smoking status: Never smoker Non-prescribed substance use: denies use Highest level of school completed/degree received: Associate degree: academic program Are you now , , , , never or living with a partner: In a typical week, how many times do you talk on the telephone with family, friends, or neighbors: 3 or more times per week How often do you get together with friends or relatives: 3 or more times per week Little interest or pleasure in doing things: not at all Feeling down, depressed, or hopeless: not at all Feel stressed/tense/nervous/anxious/difficulty sleeping: not at all Do you think of yourself as: straight/heterosexual Gender Identity: female Exam Narrative Exam Narrative: Nurses notes and vital signs reviewed and patient is not hypoxic. Dental exam showed that the patient have a the tooth #18 is partially decayed there is no exposure of any gum or any underlying bone structures The patient have multiple decayed tooth and bad oral hygiene General: Well-appearing and in no apparent distress. Skin: Warm, dry, no pallor noted. No rash. Head: Normocephalic, atraumatic. Neck: Supple, non-tender. Eye: Pupils are equal, round and EOMI. No scleral icterus. Ears, Nose, Mouth, and Throat: TM are clear, no nasal mucosal hypertrophy. Oral mucosa is moist, no posterior oropharynx erythema, uvula is mid-line Cardiovascular: Regular Rate and Rhythm without murmur, gallop or rub. Respiratory: No accessory muscle use or respiratory distress. Lungs are clear to auscultation, no wheezing, rales or rhonchi Chest Wall: no tenderness Back: No midline thoracic or lumbar vertebral tenderness. No CVA tenderness Musculoskeletal: normal ROM, no calf or popliteal tenderness, no lower extremity edema/swelling GI: Abdomen is soft, non-distended. Normal bowel sounds. No masses appreciated. No tenderness to palpation. No rebound, guarding, or rigidity noted. Neurological: A&O x4. No cranial nerve dysfunction observed. No truncal ataxia. Moves all extremities. Sensation intact. Psychiatric: Cooperative and interactive. Normal mood and affect. Constitutional Vital Signs, click to edit/add: Last Vital Signs Temp 98.9 F 02/13/24 16:10 Pulse 112 H 02/13/24 16:10 Resp 18 02/13/24 16:10 BP 148/86 H 02/13/24 16:10 Pulse Ox 100 02/13/24 16:10 O2 Del Method Room Air 02/13/24 16:10 Course Vital Signs Vital signs: Vital Signs Temperature 98.9 F 02/13/24 16:10 Pulse Rate 112 H 02/13/24 16:10 Respiratory Rate 18 02/13/24 16:10 Blood Pressure 148/86 H 02/13/24 16:10 Pulse Oximetry 100 02/13/24 16:10 Oxygen Delivery Method Room Air 02/13/24 16:10 Temperature 98.9 F 02/13/24 16:10 Pulse Rate 112 H 02/13/24 16:10 Respiratory Rate 18 02/13/24 16:10 Blood Pressure 148/86 H 02/13/24 16:10 Pulse Oximetry 100 02/13/24 16:10 Oxygen Delivery Method Room Air 02/13/24 16:10 MDM - Dental/Oral MDM Narrative Medical decision making narrative: Right now the patient will be provided with local pain medication with local dental numbing pain medication Patient also will be provided with ceftriaxone 1 dose in addition to changing her antibiotic from Augmentin to clindamycin The patient was instructed about the importance of follow-up with a dentist and try to get to an appointment as right now it does not seem to be secondary to infection as more of a dental root canal that need to be managed The patient is to follow up with primary care physician in next 2-3 days or to return to the emergency department should any of the signs or symptoms worsen or new symptoms develop. The patient agrees with the following Diagnosis and Treatment plan and the patient will be discharged home. Discharge Plan Discharge Stand Alone Forms: Work/School Release, Portal Instructions Chief Complaint: Dental/Oral Clinical Impression: Toothache Patient Disposition: Home, Self-Care Time of Disposition Decision: 16:58 Condition: Good Prescriptions / Home Meds: New clindamycin HCl 300 mg capsule 300 mg PO Q8H 7 Days Qty: 21 0RF No Action tramadol 50 mg tablet 50 mg PO Q4H PRN (Reason: pain) 3 Days Qty: 15 0RF ketorolac 10 mg tablet 10 mg PO TID PRN (Reason: pain) Qty: 10 0RF alprazolam 0.25 mg tablet 0.25 mg PO Q8H PRN (Reason: anxiety) citalopram [Celexa] 20 mg tablet 20 mg PO DAILY atenolol 25 mg tablet 25 mg PO Q24H Print Language: Chinese Instructions: Toothache (ED) Referrals: Physician,Non-Staff, MD [Primary Care Provider] - 1 week
[2024-02-13] MEDS: CEFTRIAXONE 1,000 MG, LIDOCAINE HCL/PF 2.1 ML IM (16:57)
[2024-02-13] MEDS: BENZOCAINE 30 ML, lidocaine HCL 15 ML MM (16:57)
== END 2024-02-13 17:02 | disposition home or self-care (01) ==
PROVIDERS: Emergency Provider Emergency Medicine
DX: K08.89 Other specified disorders of teeth and supporting structures (principal)
CPT/HCPCS: 96372; 99284; J0696; J1885

== ENCOUNTER 2024-02-13 21:48 | Emergency (ER) | payer BC, SELFPAY ==
[2024-02-13 21:53] VITALS: BP 130/93; PULSE 97; TEMP 36.7; O2SAT 100; BMI 30.8
--- OUTSIDE RECORDS SUMMARY | 2024-02-13 21:57 | XMS_ITS | CCD ---
Author Organization [facility] Care Team Providers Care Fingernail Technician Name Role Phone DO Jennifer Duran Primary Care Provider DO Augustus Santiago Attending Provider [phone] DO Amaury Barlow Emergency Provider [phone] Jennifer Duran Primary Care Physician [phone] Jennifer Duran Unavailable DO Jennifer Duran Primary Care Provider DO Jennifer Duran Attending Provider [phone] Jennifer Duran DO Primary Care Provider Jennifer Duran DO Unavailable Didier BARNETT, Penola P Unavailable Jennifer Duran DO Primary Care Provider Jennifer Duran DO Unavailable DO Jennifer Duran Primary Care Provider [phone] DO Jennifer Duran Attending Provider MD Yevgeniy [...] Referring Unavailable JENNIFER DURAN Primary Care Unavailable BELIKS SANDOVAL Admitting Unavailable DR JENNIFER DURAN Primary Care Unavailable MARTITA, DR JASMIN Rosenbaum Consulting Unavailabl e BELKIS SANDOVAL Attending Unavailable KIMMEI, DR AUBREY Varghese Consulting Unavailable BELKIS SANDOVAL Consulting Unavailable DO Jennifer Duran Primary Care Provider [phone] DO Elier Jackson Emergency Provider [phone] DO Ming Childress Emergency Provider MD Megan Garcia Admit Provider MD Megan Muniz Attending Provider DO Kiko Saenz Other Provider MD Christi Aquino Attending Provider [phone] DO Jaime Aleman Attending Provider LLC, GENERIC Primary Care Physician Unavailab DO Jennifer Rm [facility] DO Jaime Aleman Attending Provider DO Ming Childress Emergency Provider MD Megan Garcia Admit Provider [phone] MD Christi Aquino Attending Provider [phone] ViscDO Kiko landeros Other Provider NO FAMILY, PHYSICIAN Primary Care Provider Unava ilable MD MCKINLEY, EVGENY Attending Unavailable JENNIFER DURAN Primary Care Unavailable DO Elier Jackson Emergency Provider NONE, XXXX Primary Care Physician Unavailab DESTINI Sheehan Attending Unavailable TARUN BRADEN Attending Unavailable Jennifer Duran DO Primary Care Provider Unavail able DO Jennifer Duran Primary Care Provider CATY Corbett Emergency Provider [phone] SELWYN MARTINEZ Attending Unavailable NO PCP, NO PCP Primary Care Unavailable SELWYN MARTINEZ Attending Unavailable NO PCP, NO PCP Primary Care Unavailable DO Jennifer Duran Attending Provider [phone] Jennifer Duran Primary Care Unavailable Megan Muniz [...] Girivelisse, Jennifer Primary Care Unavailable Kun - [facility], Jaime P Attending Unavailable Kuns - [facility], Jaime P Admitting Unavailable Manuel, Elier M [...] 9 Other: See Comments, Itching (finding), Itching [facility] (19 sources) Atenolol Drug Allergy 3 Dr. Cantu/ [facility] (6 sources) seasoninig Propensity to adverse reactions Unknown [facility] Other (1 source) Morphine Drug Allergy 3 [facility] (17 sources) Seasonal allergy Propensity to adverse reactions 3 Unknown, Watery Eye [facility] (12 sources) Prochlorperazin e; Translations: [prochlorperazi ne] Drug Allergy 3 Feeling nervous (finding), Anxiety [facility] (1 source) Morphine Drug Allergy 3 [facility] (1 source) No Known Medication Allergies; Translations: [No Known Medication Allergies] Propensity to adverse reactions (disorder) [facility] Repository Medications Current Medications Medication Drug [...] day(s), # 250 mL, Refills(s) 0, Pharmacy: [facility]/pharmacy #[id number], 166, cm, 12/04/21 12:54:00 [...] q12hr, # 20 tab(s), Refills(s) 0, Pharmacy: [facility]/pharmacy #[id number], 165, cm, 09/26/23 14:18:00 [...] day(s), # 20 tab(s), Refills(s) 0, Pharmacy: [facility]/pharmacy #[id number], 165, cm, 09/26/23 14:18:00 [...] for 10 day(s), 22 gm, Refill(s) 0, [facility]/pharmacy #[id number], 166, cm, 12/04/21 12:54:00 [...] day(s), # 12 cap(s), Refills(s) 0, Pharmacy: [facility]/pharmacy #[id number], 165.1, cm, 04/24/23 13:32:00 [...] 12 March 29, 2023 polyethylene glycol 3350 41302 mg powder for oral solution (2 sources) Osmotic Laxative Start: 09-26-2023 End: 10-03-2023 take 17 g by mouth once daily Miralax 3350 17 gram packet 17 gm, Oral, Daily, X 7 day(s), # 119 gm, Refills(s) 0, Pharmacy: [facility]/pharmacy #[id number], 165, cm, 09/26/23 14:18:00 [...] September 14, 2021 April 28, 2022 1:50am [id number] 200 actuat albuterol 0.09 mg/actuat metered dose [...] 30 mg oral tablet (7 sources) Uncompetitive F-bfyila-C-asparta te Receptor Antagonist, Sigma-1 Agonist Start: 08-11-2021 take 1 tablet by mouth every six hours as needed [place] DMT 30-30 MG 1 tablet Orally q6 [...] 2023 ED Clinical Summary ED Clinical Summary [place] [id number] ED Clinical Summary Person Information [facility] Age[facility] 39 Years : 1985 Sex: Female Language: Australian PCP: NONE, XXXX Marital Status: Visit Id: [...] 02/13/2024 01:00:19 ADDRESS: [address] [place] [id number] PHYS DOC NOTES: MEDICAL INFORMATION: Prescriptions Given: New Medications [id number], [address] [place], [place] [id number], [phone] amoxicillin-clavulan ate (Augmentin 875 mg-125 mg Tab) [...] Pain Follow up: With: Address: When: Dental: [facility] [phone] In 3 days 02/16/2024 With: Address: When: Dental: [facility] [phone] In 3 days 02/16/2024 With: Address: When: Dental: [facility] [phone] In 3 days 02/16/2024 DIAGNOSIS: Pain, dental Normal [facility] ED Note-Physicianon 02-13-20 ED Note-Physician ED [...] and was given a short prescription for [place] which she is also taking but states [...] and Complexity of Problems Differential Diagnosis: [] [facility] Data External documents reviewed: N/A My EKG [...] already taking oral Toradol as well as [place]. We discussed using lidocaine and bupivacaine soaked [...] for 7 day(s), 14 tab(s), Refill(s) 0, [facility]/pharmacy #[id number], 165.1, cm, 02/13/24 0:28:00 EDT, Height/Length [...] q12hr Follow-up With When Contact Information Dental: [facility] [phone] In 3 days 02/16/2024 EDT Additional Instructions: Dental: [facility] [phone] In 3 days 02/16/2024 EDT Additional Instructions: Dental: [facility] [phone] In 3 days 02/16/2024 EDT Additional Instructions: [...] Diagnostic Results No qualifying data available. Normal [facility] Comment on above: Result Comment: Elec tronically Signed By: Ritesh Heath DO\.br\Date and Time Signed: 02/13/24 00:51 EDT ED Patient Summaryon 024 ED Patient Summary ED Patient Summary [place] [id number] Patient Discharge Instructions Person Information Name: LIVIA NOYOLA Age: 39 Years Arrival Date: 02/13/2024 00:20:34 Discharge Diagnosis: Pain, dental Primary Care Physician: NONE, XXXX Provider Information Primary Provider: Ritesh Heath DO Advanced Supersonic Engineer:None The exam and treatment you received in the Emergency Department were for an urgent problem and are not intended as complete care. It is important that you follow up with a doctor, nurse practitioner, or physician?s diploma dental assistant for ongoing care. If your symptoms become worse or you do not improve as expected and you are unable to reach your usual health care provider, you should return to the Emergency Department. We are available 24 hours a day. LIVIA NOYOLA has been given the following list of patient education materials, prescriptions and follow-up instructions: Follow-up Instructions: With: Address: When: Dental: [facility] [phone] In 3 days 02/16/2024 With: Address: When: Dental: [facility] [phone] In 3 days 02/16/2024 With: Address: When: Dental: [facility] [phone] In 3 days 02/16/2024 In the event that this physician does not participate in your insurance network, please consult with your insurance company to find a nearby participating provider. Patient Education Materials: Dental Pain A MESSAGE TO ALL PATIENTS REGARDING OPIOIDS PRESCRIPTION OPIOIDS: WHAT YOU NEED TO KNOW Prescription opioids can be used to help relieve mkyixwjo-qf-kwugfn pain and are often prescribed following a [...] care professi (more content not included)... Normal [facility] C REACTIVE PROTEINon 024 CRP [Mass/Vol] mg/L Normal 0.000-0.744 [facility] Comment on above: Performed By: #### C HEATH CMP #### [facility] ([id number]) [address] [place] [address] 81530 CBC AND AUTO DIFFon 01-27-20 24 ABSOLUTE BASOPHIL 0.1 X10E9/L Normal 0.0-0.2 [facility] Comment on above: Performed By: #### C STEVE JOE, 3040-3, , #### [facility] ([id number]) [address] [place] [address] 27430 ABSOLUTE NEUTROPHIL 4.6 X10E9/L Normal 1.5-6.6 [facility] Comment on above: Performed By: #### C HEATH CMP, 3040-3, 53871-9, #### [facility] ([id number]) [address] [place] [address] 78031 Basophils/100 WBC (Bld) 1.0 % Normal P [facility] Comment on above: Performed By: #### C HEATH CMP, 3040-3, , 1985-10, #### [facility] ([id number]) [address] [place] [address] 72321 Eosinophils (Bld) [#/Vol] 0.1 10*3/uL Normal 0.0-0.4 [facility] Comment on above: Performed By: #### C HEATH, [facility], 3039-08, , 1985-10, #### [facility] ([id number]) [address] [place] [address] 17010 Eosinophils/100 WBC (Bld) 1.8 % Normal [facility] Comment on above: Performed By: #### C HEATH, [facility], 3039-08, , 1985-10, #### [facility] ([id number]) [address] [place] [address] 60592 Erythrocyte distribution width (RBC) [Ratio] 17.1 % High 11.5-15.0 [facility] Comment on above: Performed By: #### C HEATH, [facility], 3039-08, , 1985-10, #### [facility] ([id number]) [address] [place] [address] 74132 Hematocrit (Bld) [Volume fraction] 34.8 % Low 35-47 [facility] Comment on above: Performed By: #### C BCA, CMP, 3039-08, , 1987-10, #### [facility] ([id number]) [address] [place] [address] 32185 Hemoglobin (Bld) [Mass/Vol] 10.9 g/dL Low 11.7-15.5 [facility] Comment on above: Performed By: #### C HEATH, CMP, 3039-08, , 1985-10, #### [facility] ([id number]) [address] [place] [address] 55558 Lymphocytes (Bld) [#/Vol] 1.9 10*3/uL Normal 1.0-3.5 [facility] Comment on above: Performed By: #### C HEATH, [facility], 0-3, 77408-4, 1985-10, #### [facility] ([id number]) [address] [place] [address] 36032 Lymphocytes/100 WBC (Bld) 26.4 % Normal [facility] Comment on above: Performed By: #### C HEATH, [facility], 3039-, , 1985-10, #### [facility] ([id number]) [address] [place] [address] 58235 MCH (RBC) [Entitic mass] 22.7 pg Low 27-34 [facility] Comment on above: Performed By: #### C HEATH, [facility], 3039-3, , 1985-10, #### [facility] ([id number]) [address] [place] [address] 75117 MCHC (RBC) [Mass/Vol] 31.3 g/dL Low 32-36 [facility] Comment on above: Performed By: #### Leila JOE, [facility], 3039-3, , 1985-10, #### [facility] ([id number]) [address] [place] [address] 33662 MCV (RBC) [Entitic vol] 72 fL Low 80-100 P [facility] Comment on above: Performed By: #### Leila JOE, [facility], 3039-, , 1985-10, #### [facility] ([id number]) [address] [place] [address] 81334 Monocytes (Bld) [#/Vol] 0.4 10*3/uL Normal 0-0.9 [facility] Comment on above: Performed By: #### C BCA, CMP, 3040-3, 03793-8, 1987-10, #### [facility] ([id number]) [address] [place] [address] 77195 Monocytes/100 WBC (Bld) 5.8 % Normal [facility] Comment on above: Performed By: #### C BCA, CMP, 3040-3, 21556-2, 1985-10, #### [facility] ([id number]) [address] [place] [address] 81650 Neutrophils/100 WBC (Bld) 65.0 % Normal [facility] Comment on above: Performed By: #### C BCA, CMP, 3040-3, , 1987-10, #### [facility] ([id number]) [address] [place] [address] 68928 Platelet mean volume (Bld) [Entitic vol] 7.6 fL Normal 7-12 [facility] Comment on above: Performed By: #### C BCA, CMP, 3040-3, 22177-7, 1987-10, #### [facility] ([id number]) [address] [place] [address] 98310 Platelets (Bld) [#/Vol] 532 10*3/uL High 150-450 [facility] Comment on above: Performed By: #### C BCA, CMP, 3040-3, 27643-8, 1987-10, #### [facility] ([id number]) [address] [place] [address] 19688 RBC COUNT 4.80 X10E12/L Normal 3.80-5.20 [facility] Comment on above: Performed By: #### C BCA, CMP, 3040-3, 82080-7, 1987-10, #### [facility] ([id number]) [address] [place] [address] 19147 WBC (Bld) [#/Vol] 7.0 10*3/uL Normal 4.0-11.0 [facility] Comment on above: Performed By: #### C HEATH, CMP, 0-3, 06334-9, 1987-10, #### [facility] ([id number]) [address] [place] [address] 30039 CHLAMYDIA/GC BY PCRon 2023 CHLAMYDIA/GC BY PCR [...] are dependent on adequate specimen collection. Normal [facility] Comment on above: Performed By: #### C HEATH, CMP #### [facility] ([id number]) [address] [place] [address] 21874 COMPREHENSIVE METABOLIC PANE Van 01-27-2024 Albumin [Mass/Vol] 4.3 g/dL Normal 3.2-5.3 [facility] Comment on above: Performed By: #### C HEATH CMP, 0-3, 84400-6, 1987-10, #### [facility] ([id number]) [address] [place] [address] 14592 ALP [Catalytic activity/Vol] 76 U/L Normal 39-130 [facility] Comment on above: Performed By: #### C HEATH, CMP, 3040-3, 41657-3, 1987-10, #### [facility] ([id number]) [address] [place] [address] 54977 ALT [Catalytic activity/Vol] 28 U/L Normal 0-31 [facility] Comment on above: Performed By: #### C BCA, CMP, 3040-3, 24954-7, 1987-10, #### [facility] ([id number]) [address] [place] [address] 48301 Anion gap [Moles/Vol] 7 mmol/L Normal 5-15 [facility] Comment on above: Performed By: #### C BCA, CMP, 3040-3, 47696-2, 1987-10, #### [facility] ([id number]) [address] [place] [address] 04147 AST [Catalytic activity/Vol] 20 U/L Normal 0-41 [facility] Comment on above: Performed By: #### C BCA, CMP, 3040-3, 59017-2, 1987-10, #### [facility] ([id number]) [address] [place] [address] 38987 Bilirubin [Mass/Vol] 1.0 mg/dL Normal 0.3-1.2 [facility] Comment on above: Performed By: #### C BCA, CMP, 3040-3, 96190-5, 1987-10, #### [facility] ([id number]) [address] [place] [address] 78495 Calcium [Mass/Vol] 9.0 mg/dL Normal 8.5-10.5 [facility] Comment on above: Performed By: #### C BCA, CMP, 3040-3, 15366-9, 1987-10, #### [facility] ([id number]) [address] [place] [address] 86677 Chloride [Moles/Vol] 102 mmol/L Normal 98-109 [facility] Comment on above: Performed By: #### C BCA, CMP, 3040-3, 53379-3, 1987-10, #### [facility] ([id number]) [address] [place] [address] CO2 [Moles/Vol] 22 mmol/L Normal 22-32 [facility] Comment on above: Performed By: #### C STEVE JOE, 3040-3, 05652-3, 1987-10, #### [facility] ([id number]) [address] [place] [address] 67596 Creatinine [Mass/Vol] 0.76 mg/dL Normal 0.40-1.00 [facility] Comment on above: Result Comment: METH OD TRACEABLE TO IDMS STANDARD Performed By: #### C STEVE JOE, 3039-3, , 1987-10, #### [facility] ([id number]) [address] [place] [address] 16796 eGFR (CKD-EPI) NON-RACE DEPENDENT >90 Normal >59 [facility] Comment on above: Result Comment: Reported eGFR is based on the CKD-EPI 2020 equation that does not use a race coefficient. Performed By: #### C STEVE JOE, 0-3, , 1987-10, #### [facility] ([id number]) [address] [place] [address] 30122 Glucose [Mass/Vol] 109 mg/dL High 65-99 [facility] Comment on above: Performed By: #### C STEVE JOE, 0-3, , 1987-10, #### [facility] ([id number]) [address] [place] [address] 39719 Potassium [Moles/Vol] 4.1 mmol/L Normal 3.5-5.0 [facility] Comment on above: Performed By: #### C STEVE JOE, 3040-3, 82828-6, 1987-10, #### [facility] ([id number]) [address] [place] [address] 43421 Protein [Mass/Vol] 8.2 g/dL High 6.0-8.0 [facility] Comment on above: Performed By: #### C HEATH, [facility], 3040-3, 19375-9, 1987-10, #### [facility] ([id number]) [address] [place] [address] 18004 Sodium [Moles/Vol] 131 mmol/L Low 134-146 [facility] Comment on above: Performed By: #### C HEATH, [facility], 3040-3, 21765-4, 1987-10, #### [facility] ([id number]) [address] [place] [address] 72724 Urea nitrogen [Mass/Vol] 6 mg/dL Normal 5-23 [facility] Comment on above: Performed By: #### C HEATH, [facility], 3040-3, 00436-7, 1987-10, #### [facility] ([id number]) [address] [place] [address] 60084 HCG ( test) Ql (U)o n 01-27-2024 Beta HCG ( test) Ql (U) Negative Normal NEG [facility] Comment on above: Performed By: #### 2 106-3 #### [facility] ([id number]) [address] [place] [address] 12327 LIPASEon 01-27-2024 Lipase [Catalytic activity/Vol] 33 U/L Normal 17-40 [facility] Comment on above: Performed By: #### C HEATH, CMP #### [facility] ([id number]) [address] [place] [address] 77575 Lactate (P arely) [Moles/Vol]o n 01-27-2024 LACTATE W/REFLEX 1.5 mmol/L Normal 0.4-2.0 [facility] Comment on above: Result Comment: Result did not trigger repeat Lactate, re-order if needed. Performed By: #### C BCA, CMP #### [facility] ([id number]) [address] [place] [address] 72566 MAGNESIUMon 01-27-2024 Magnesium [Mass/Vol] 2.0 mg/dL Normal 1.8-2.6 [facility] Comment on above: Performed By: #### C BCA, CMP #### [facility] ([id number]) [address] [place] [address] 25478 URINE CULTUREon 01-27-2024 Bacteria identified Cx Nom (U) CULTURE RESULTS <10,000 ORGANISMS/ML NORMAL URO GENITAL RASHID Normal [facility] Comment on above: Performed By: #### C HEATH, CMP #### [facility] ([id number]) [address] [place] [address] 15789 URN MACROSCOPIC NURon 2023 BILIRUBIN AUDREY Negative Normal NEG [facility] Comment on above: Performed By: #### N UM #### [facility] ([id number]) [address] [place] [address] 26969 BLOOD/HGB AUDREY Negative Normal NEG [facility] Comment on above: Performed By: #### N UM #### [facility] ([id number]) [address] [place] [address] 69645 GLUCOSE AUDREY Negative Normal NEG [facility] Comment on above: Performed By: #### N UM #### [facility] ([id number]) [address] [place] [address] 02771 KETONES AUDREY Negative Normal NEG [facility] Comment on above: Performed By: #### N UM #### [facility] ([id number]) [address] [place] [address] [place] [address] LEUKOCYTE ESTERASE AUDREY Negative Normal NEG [facility] Comment on above: Performed By: #### N UM #### [facility] ([id number]) [address] [place] [address] 36436 NITRITE AUDREY Negative Normal NEG [facility] Comment on above: Performed By: #### N UM #### [facility] ([id number]) [address] [place] [address] 23751 PH AUDREY 8.5 Normal 5.0-8.5 [facility] Comment on above: Performed By: #### N UM #### [facility] ([id number]) [address] [place] [address] 07866 PROTEIN AUDREY Negative Normal NEG [facility] Comment on above: Performed By: #### N UM #### [facility] ([id number]) [address] [place] [address] 47133 SPECIFIC GRAVITY AUDREY 1.015 Normal 1.003-1.035 [facility] Comment on above: Performed By: #### N UM #### [facility] ([id number]) [address] [place] [address] 93051 UROBILINOGEN AUDREY 0.2 eu/dL Normal <1.1 [facility] Comment on above: Performed By: #### N UM #### [facility] ([id number]) [address] [place] [address] 77524 US PELVIC WITH TRANSVAGINAL AND DUPLEXon 01-27-2024 [...] Nixon MD on 01/27/2024 2:39 PM Normal [facility] VAGINITIS PANEL PCRon 2023 VAGINITIS PANEL PCR [...] clinical presentation to determine patient diagnosis. Normal [facility] Comment on above: Performed By: #### C HEATH, [facility] #### [facility] ([id number]) [address] [place] [address] [place] [address] [address] sinus wo conon 11-25-2023 CT sinus wo con [facility] [place] [address] [place] [address] CT Scan Report Signed Patient: Livia Noyola MR#: [id number] 757 : 1985 Acct:[id number] Age/Sex: 38 / F ADM Date: 11/25/23 Loc: CT Room: Type: [facility] Attending Dr: Jennifer Duran DO Copies to: [...] Davi Figueroa M.D.11/25/2023 4:01 PM Dictation Location: [place] [address] Transcribed By: [facility] 11/25/23 1601 Dictated By: Davi Figueroa DO 11/25/23 1559 Signed By: 11/25/23 1601 Normal [facility] CBC AND AUTO DIFFon 10-25-19 ABSOLUTE BASOPHIL 0.1 X10E9/L Normal 0.0-0.2 [facility] Comment on above: Performed By: #### C BCA, CMP #### [facility] ([id number]) [address] [place] [address] ABSOLUTE NEUTROPHIL 4.1 X10E9/L Normal 1.5-6.6 [facility] Comment on above: Performed By: #### C HEATH, CMP #### [facility] ([id number]) [address] [place] [address] 02636 Basophils/100 WBC (Bld) 0.9 % Normal [facility] Comment on above: Performed By: #### C BCA, CMP #### [facility] ([id number]) [address] [place] [address] 81644 Eosinophils (Bld) [#/Vol] 0.0 10*3/uL Normal 0.0-0.4 [facility] Comment on above: Performed By: #### C HEATH, CMP #### [facility] ([id number]) [address] [place] [address] 15512 Eosinophils/100 WBC (Bld) 0.1 % Normal [facility] Comment on above: Performed By: #### C HEATH, CMP #### [facility] ([id number]) [address] [place] [address] 10868 Erythrocyte distribution width (RBC) [Ratio] 17.9 % High 11.5-15.0 [facility] Comment on above: Performed By: #### C HEATH, CMP #### [facility] ([id number]) [address] [place] [address] 19456 Hematocrit (Bld) [Volume fraction] 34.6 % Low 35-47 [facility] Comment on above: Performed By: #### C BCA, CMP #### [facility] ([id number]) [address] [place] [address] 28762 Hemoglobin (Bld) [Mass/Vol] 11.1 g/dL Low 11.7-15.5 [facility] Comment on above: Performed By: #### C BCA, CMP #### [facility] ([id number]) [address] [place] [address] 89831 Lymphocytes (Bld) [#/Vol] 1.5 10*3/uL Normal 1.0-3.5 [facility] Comment on above: Performed By: #### C BCA, CMP #### [facility] ([id number]) [address] [place] [address] 77703 Lymphocytes/100 WBC (Bld) 25.6 % Normal [facility] Comment on above: Performed By: #### C BCA, CMP #### [facility] ([id number]) [address] [place] [address] 89712 MCH (RBC) [Entitic mass] 23.1 pg Low 27-34 [facility] Comment on above: Performed By: #### C HEATH, CMP #### [facility] ([id number]) [address] [place] [address] 57392 MCHC (RBC) [Mass/Vol] 32.1 g/dL Normal 32-36 [facility] Comment on above: Performed By: #### C HEATH, CMP #### [facility] ([id number]) [address] [place] [address] 22299 MCV (RBC) [Entitic vol] 72 fL Low 80-100 P [facility] Comment on above: Performed By: #### C BCA, CMP #### [facility] ([id number]) [address] [place] [address] 50204 Monocytes (Bld) [#/Vol] 0.3 10*3/uL Normal 0-0.9 [facility] Comment on above: Performed By: #### C BCA, CMP #### [facility] ([id number]) [address] [place] [address] 56113 Monocytes/100 WBC (Bld) 5.3 % Normal [facility] Comment on above: Performed By: #### C BCA, CMP #### [facility] ([id number]) [address] [place] [address] 20149 Neutrophils/100 WBC (Bld) 68.1 % Normal [facility] Comment on above: Performed By: #### C BCA, CMP #### [facility] ([id number]) [address] [place] [address] 48551 Platelet mean volume (Bld) [Entitic vol] 7.7 fL Normal 7-12 [facility] Comment on above: Performed By: #### C BCA, CMP #### [facility] ([id number]) [address] [place] [address] 09422 Platelets (Bld) [#/Vol] 532 10*3/uL High 150-450 [facility] Comment on above: Performed By: #### C HEATH, CMP #### [facility] ([id number]) [address] [place] [address] 17822 RBC COUNT 4.82 X10E12/L Normal 3.80-5.20 [facility] Comment on above: Performed By: #### C BCA, CMP #### [facility] ([id number]) [address] [place] [address] 00751 WBC (Bld) [#/Vol] 6.0 10*3/uL Normal 4.0-11.0 [facility] Comment on above: Performed By: #### C BCA, CMP #### [facility] ([id number]) [address] [place] [address] 80118 COMPREHENSIVE METABOLIC PANE [facility] 10-25-2023 Albumin [Mass/Vol] 4.7 g/dL Normal 3.2-5.3 [facility] Comment on above: Performed By: #### C BCA, CMP #### [facility] ([id number]) [address] [place] [address] 61779 ALP [Catalytic activity/Vol] 67 U/L Normal 39-130 [facility] Comment on above: Performed By: #### C BCA, CMP #### [facility] ([id number]) [address] [place] [address] [place] [address] ALT [Catalytic activity/Vol] 23 U/L Normal 0-31 [facility] Comment on above: Performed By: #### C BCA, CMP #### [facility] ([id number]) [address] [place] [address] 11829 Anion gap [Moles/Vol] 11 mmol/L Normal 5-15 [facility] Comment on above: Performed By: #### C BCA, CMP #### [facility] ([id number]) [address] [place] [address] 45531 AST [Catalytic activity/Vol] 20 U/L Normal 0-41 [facility] Comment on above: Performed By: #### C BCA, CMP #### [facility] ([id number]) [address] [place] [address] 08824 Bilirubin [Mass/Vol] 1.0 mg/dL Normal 0.3-1.2 [facility] Comment on above: Performed By: #### C BCA, CMP #### [facility] ([id number]) [address] [place] [address] 30834 Calcium [Mass/Vol] 9.6 mg/dL Normal 8.5-10.5 [facility] Comment on above: Performed By: #### C BCA, CMP #### [facility] ([id number]) [address] [place] [address] 53632 Chloride [Moles/Vol] 106 mmol/L Normal 98-109 [facility] Comment on above: Performed By: #### C BCA, CMP #### [facility] ([id number]) [address] [place] [address] 05138 CO2 [Moles/Vol] 20 mmol/L Low 22-32 [facility] Comment on above: Performed By: #### C BCA, CMP #### [facility] ([id number]) [address] [place] [address] 22113 Creatinine [Mass/Vol] 0.59 mg/dL Normal 0.40-1.00 [facility] Comment on above: Result Comment: METH OD TRACEABLE TO IDMS STANDARD Performed By: #### C BCA, CMP #### [facility] ([id number]) [address] [place] [address] 82359 eGFR (CKD-EPI) NON-RACE DEPENDENT >90 Normal >59 [facility] Comment on above: Result Comment: Reported eGFR is based on the CKD-EPI 2020 equation that does not use a race coefficient. Performed By: #### C BCA, CMP #### [facility] ([id number]) [address] [place] [address] 63522 Glucose [Mass/Vol] 124 mg/dL High 65-99 [facility] Comment on above: Performed By: #### C BCA, CMP #### [facility] ([id number]) [address] [place] [address] 48430 Potassium [Moles/Vol] 3.5 mmol/L Normal 3.5-5.0 [facility] Comment on above: Performed By: #### C BCA, CMP #### [facility] ([id number]) [address] [place] [address] 76741 Protein [Mass/Vol] 8.7 g/dL High 6.0-8.0 [facility] Comment on above: Performed By: #### C BCA, CMP #### [facility] ([id number]) [address] [place] [address] 75012 Sodium [Moles/Vol] 137 mmol/L Normal 134-146 [facility] Comment on above: Performed By: #### C BCA, CMP #### [facility] ([id number]) [address] [place] [address] 55990 Urea nitrogen [Mass/Vol] 6 mg/dL Normal 5-23 [facility] Comment on above: Performed By: #### C BCA, CMP #### [facility] ([id number]) [address] [place] [address] ABDOMEN AND PELVIS W CONT on [...] Fisher MD on 10/25/2023 7:39 PM Normal [facility] HCG ( test) Ql (U)o n 10-25-2023 Beta HCG ( test) Ql (U) Negative Normal NEG [facility] Comment on above: Performed By: #### 2 106-3 #### [facility] ([id number]) [address] [place] [address] 52465 URN MACROSCOPIC NURon 2023 BILIRUBIN AUDREY Negative Normal NEG [facility] Comment on above: Performed By: #### N UM #### [facility] ([id number]) [address] [place] [address] 90907 BLOOD/HGB AUDREY Negative Normal NEG [facility] Comment on above: Performed By: #### N UM #### [facility] ([id number]) [address] [place] [address] 17987 GLUCOSE AUDREY Negative Normal NEG [facility] Comment on above: Performed By: #### N UM #### [facility] ([id number]) [address] [place] [address] 02338 KETONES AUDREY 15 mg/dL Abnormal NEG [facility] Comment on above: Performed By: #### N UM #### [facility] ([id number]) [address] [place] [address] 26199 LEUKOCYTE ESTERASE AUDREY Trace Abnormal NEG [facility] Comment on above: Performed By: #### N UM #### [facility] ([id number]) [address] [place] [address] 23884 NITRITE AUDREY Negative Normal NEG [facility] Comment on above: Performed By: #### N UM #### [facility] ([id number]) [address] [place] [address] 14073 PH AUDREY 7.0 Normal 5.0-8.5 [facility] Comment on above: Performed By: #### N UM #### [facility] ([id number]) [address] [place] [address] 17998 PROTEIN AUDREY Negative Normal NEG [facility] Comment on above: Performed By: #### N UM #### [facility] ([id number]) [address] [place] [address] 37796 SPECIFIC GRAVITY AUDREY 1.020 Normal 1.003-1.035 [facility] Comment on above: Performed By: #### N UM #### [facility] ([id number]) [address] [facility], [place] [address] UROBILINOGEN AUDREY 1.0 eu/dL Normal <1.1 [facility] Comment on above: Performed By: #### N UM #### [facility] ([id number]) [address] [facility], [place] [address] US PELVIC WITH TRANSVAGINAL AND DUPLEXon 10-25-2023 [...] Singh MD on 10/25/2023 6:17 PM Normal [facility] C Urineon 10-02-2023 Bacteria identified Cx Nom [...] Locations R1: This test was performed at: [facility], [address] [place] [place] [address], [address]- , , Normal [facility] Comment on above: Performed By: #### 2 959131, 1852161, 2292300, 16669193, [id number] #### [facility] [address] [place] [address] 38246 BMPon 09-30-2023 Anion gap [Moles/Vol] 13 mmol/L Normal 6-16 [facility] Comment on above: Performed By: #### 2 201931, 1177359, 6947554, 33397003, 2264460 ####[place] [place] [address] Calcium [Mass/Vol] 9.1 mg/dL Normal 8.9-11.1 [facility] Comment on above: Performed By: #### 2 237448, 2851455, 8947881, 49735632, 8936806 ####[address] [place] [address] Chloride [Moles/Vol] 105 mmol/L Normal 101-111 [facility] Comment on above: Performed By: #### 2 166888, 2443758, 2141618, 99702481, 9579058 ####[address] [place] [address] CO2 [Moles/Vol] 23 mmol/L Normal 21-31 [facility] Comment on above: Performed By: #### 2 692294, 3259234, 7384971, 12057721, 2891952 ####[facility] [address] [place] [address] Creatinine [Mass/Vol] 0.8 mg/dL Normal 0.5-1.3 [facility] Comment on above: Performed By: #### 2 463527, 5815539, 8647249, 73355057, 3204705 ####[facility] [address] [place] [address] Glucose [Mass/Vol] 95 mg/dL Normal 55-199 [facility] Comment on above: Performed By: #### 2 882926, 9885898, 0023578, 39554729, 2149836 ####[facility] [address] [place] [address] Potassium [Moles/Vol] 3.1 mmol/L Low 3.5-5.3 [facility] Comment on above: Performed By: #### 2 231464, 7287466, 5222990, 83983173, 3329415 ####[facility] [address] [place] [address] Sodium [Moles/Vol] 138 mmol/L Normal 135-145 [facility] Comment on above: Performed By: #### 2 348105, 1324620, 9430801, 71942554, 4651343 ####[facility] [address] [place] [address] Urea nitrogen [Mass/Vol] 7 mg/dL Normal 5-21 [facility] Comment on above: Performed By: #### 2 347111, 4738945, 9139152, 69697082, 6086724 ####[facility] [address] [place] [address] Urea nitrogen/Creatinine [Mass ratio] 9 No Units Low 10-20 [facility] Comment on above: Performed By: #### 2 858242, 6285811, 6028352, 06326430, 6138337 ####[facility] [address] [place] [address] CBC w/ Auto Diffon 4 Basophils/100 WBC (Bld) 0.3 % Normal 0.0-2.0 [facility] Comment on above: Performed By: #### 2 351935, 0959546, 7653603, 29651978, 1638071 ####[address] [address] Basophils/Leukocytes Auto (Bld) [Pure # fraction] 0.0 E9/L Normal 0.0-0.2 [facility] Comment on above: Performed By: #### 2 891294, 7515051, 4044905, 47739668, 8877557 ####[address] [address] Eosinophils (Bld) [#/Vol] 0.0 E9/L Normal 0.0-0.5 [facility] Comment on above: Performed By: #### 2 590398, 3021144, 8922939, 80783785, 0035976 ####[address] [address] Eosinophils/100 WBC (Bld) 0.4 % Normal 0.0-8.0 [facility] Comment on above: Performed By: #### 2 556645, 8478991, 7332949, 35682627, 0965432 ####[address] [address] Erythrocyte distribution width (RBC) [Ratio] 18.3 % High 10.9-14.2 [facility] Comment on above: Performed By: #### 2 369040, 1579658, 3791574, 86966201, 7938636 ####[address] [address] Hematocrit (Bld) [Volume fraction] 32.6 % Low 34.0-46.0 [facility] Comment on above: Performed By: #### 2 520091, 7105517, 2021948, 65167766, 1729673 ####[address] [address] Hemoglobin (Bld) [Mass/Vol] 10.3 g/dL Low 12.0-16.0 [facility] Comment on above: Performed By: #### 2 106361, 6828751, 0882413, 46187778, 1628108 ####[facility] [address] [place] [address] Lymphocytes (Bld) [#/Vol] 4.1 E9/L High 1.0-4.0 [facility] Comment on above: Performed By: #### 2 709443, 8028774, 2542600, 34734817, 5095547 ####[facility] [address] [place] [address] 90588 Lymphocytes/100 WBC (Bld) 39.5 % Normal 14.0-50.0 [facility] Comment on above: Performed By: #### 2 439446, 2802489, 6002223, 98027843, 1940716 ####[facility] [address] [place] [address] 11952 MCH (RBC) [Entitic mass] 23.7 pg Low 27.0-34.0 [facility] Comment on above: Performed By: #### 2 356919, 2389427, 5414658, 54153335, 7768030 ####[facility] [address] [place] [address] 45416 MCHC (RBC) [Mass/Vol] 31.7 g/dL Normal 31.4-36.0 [facility] Comment on above: Performed By: #### 2 965663, 3823903, 6093298, 22013351, 1127895 ####[facility] [address] [place] [address] MCV (RBC) [Entitic vol] 74.9 fL Low 80.0-100.0 [facility] Comment on above: Performed By: #### 2 604939, 9962936, 6053019, 28118395, 3775259 ####[facility] [address] [place] [address] 19326 Monocytes (Bld) [#/Vol] 0.7 E9/L Normal 0.2-1.0 [facility] Comment on above: Performed By: #### 2 283598, 2792113, 6409733, 43648178, 9290851 ####[facility] [address] [place] [address] Neutrophils (Bld) [#/Vol] 5.4 E9/L Normal 2.0-7.5 [facility] Comment on above: Performed By: #### 2 451285, 4480412, 5319675, 66132821, 8932130 ####[address] [address] Neutrophils/100 WBC (Bld) 53.1 % Normal 36.0-75.0 [facility] Comment on above: Performed By: #### 2 316836, 3448540, 8793891, 08651640, 5224537 ####[address] [address] Platelet 476.0 E9/L Normal 150.0-500.0 [facility] Comment on above: Performed By: #### 2 807030, 9879793, 4008048, 46566138, 8681308 ####[address] [address] Platelet mean volume (Bld) [Entitic vol] 7.7 fL Normal 6.4-10.8 [facility] Comment on above: Performed By: #### 2 182926, 3283617, 8748926, 60352807, 6182991 ####[address] [address] RBC (Bld) [#/Vol] 4.3 E12/L Normal 4.3-5.9 [facility] Comment on above: Performed By: #### 2 559314, 9982081, 6150921, 61783525, 6105179 ####[address] [address] WBC corrected for nucl RBC Auto (Bld) [#/Vol] 10.3 E9/L Normal 4.0-11.0 [facility] Comment on above: Performed By: #### 2 273047, 2819312, 1643921, 32846973, 6061484 ####[facility] [address] [place] [address] CHEMISTRYOrdered By: SYSTEM SYSTEM on 09-30-2023 Albumin [...] Chem Discharge Instructionson Discharge Instructions [id number]#[id number] Normal [facility] ED Clinical Summaryon 2023 ED Clinical Summary [place] [id number] ED Clinical Summary Person Information [facility]: [facility] Age[facility] 38 Years : 1985 Sex: Female Language: Australian PCP: NONE, XXXX Marital Status: Visit Id: [...] 09/30/2023 02:15:05 ADDRESS: [address] [place] [id number] PHYS DOC NOTES: MEDICAL INFORMATION: Prescriptions Given: [...] Follow up: With: Address: When: Ino Herr [facility] [address], [place] [address] [facility] (1) In 3 days 10/03/2023 DIAGNOSIS: AP (abdominal pain); Ovarian cyst Normal [facility] ED Note-Physicianon 09-30-19 ED Note-Physician Basic [...] taking oral tramadol, Toradol, Bentyl, and a [place] at home and has had no significant relief. She does have some nausea but no vomiting. No change in bowel movements. No urinary symptoms. She reports that she has had multiple ovarian cysts and did schedule a EVENT SET UP SPECIALIST appointment for possible hysterectomy but that is [...] and Complexity of Problems Differential Diagnosis: [] [facility] Data External documents reviewed: N/A My EKG [...] of 3.1 but is otherwise overall reassuring. environmental science technician reports that the ovarian cyst on [...] the information for Dr. Royal and another EVENT SET UP SPECIALIST in the area to see if he [...] mg/2 mL (more content not included)... Normal [facility] Comment on above: Result Comment: Elec [...] Follow these instructions at home: ? Take tyol-zzt-mlnplqz and prescription medicines only as told by [...] provider. Document Revised: 11/06/2020 Document Reviewed: 11/06/2020 [employer] Patient Education ? [address] [employer] [address] [facility] ED Patient Summaryon 024 ED Patient Summary [address] [address] Patient Discharge Instructions Person Information Name: LIVIA NOYOLA Age: 38 Years Arrival Date: 09/29/2023 23:38:37 Discharge Diagnosis: AP (abdominal pain); Ovarian cyst Primary Care Physician: NONE, XXXX Provider Information Primary Provider: Ritesh Heath DO Advanced Supersonic Engineer:Shazia The exam and treatment you received in the Emergency Department were for an urgent problem and are not intended as complete care. It is important that you follow up with a doctor, nurse practitioner, or physician?s diploma dental assistant for ongoing care. If your symptoms [...] Instructions: With: Address: When: Ino Royal [address] [place] [address], [address] [address] Business (1) In 3 days 10/03/2023 In the event that this physician does not participate in your insurance network, please consult with your insurance company to find a nearby participating provider. Patient Education Materials: Ovarian Cyst A MESSAGE TO ALL PATIENTS REGARDING OPIOIDS PRESCRIPTION OPIOIDS: WHAT YOU NEED TO KNOW Prescription opioids can be used to help relieve tmhonmqe-bp-wnktyf pain and are often prescribed following a [...] be struggling with addiction, tell your health nurse wound care and ask for guidance or call [facility]?S National Helpline at 4-009-648-JTES. f Source: [place] Department o (more content not included)... Normal [facility] HEMATOLOGYOrdered By: SYSTEM SYSTEM on 09-30-2023 [...] 09-30-2023 Albumin [Mass/Vol] 4.4 g/dL Normal 3.3-5.0 [facility] Comment on above: Performed By: #### 2 500650, 1533049, 5894039, 87384583, 3756179 ####[facility] [address] [place] [address] Albumin/Globulin (S) [Mass conc ratio] 1.5 Normal 1.1-2.2 [facility] Comment on above: Performed By: #### 2 888034, 4306314, 1022205, 55435040, 0548928 ####[facility] [address] [place] [address] ALP [Catalytic activity/Vol] 64 Int._Unit/L Normal 21-98 [facility] Comment on above: Performed By: #### 2 905422, 6189982, 8239422, 23325489, 8213604 ####[facility] [address] [place] [address] ALT No additional P-5'-P [Catalytic activity/Vol] 9 Int._Unit/L Normal 6-46 [facility] Comment on above: Performed By: #### 2 818476, 0159389, 7030544, 52163299, 5842111 ####[facility] [address] [place] [address] AST [Catalytic activity/Vol] 12 Int._Unit/L Normal 5-43 [facility] Comment on above: Performed By: #### 2 245298, 8556669, 1652009, 24982654, 2927592 ####[facility] [address] [place] [address] Bilirubin [Mass/Vol] 0.2 mg/dL Normal 0.0-1.1 [facility] Comment on above: Performed By: #### 2 018513, 3607282, 3940284, 64197084, 3164338 ####[facility] [address] [place] [address] Bilirubin.direct [Mass/Vol] 0.0 mg/dL Normal 0.0-0.4 [facility] Comment on above: Performed By: #### 2 626426, 9329181, 1219650, 99152973, 9613324 ####[facility] [address] [place] [address] Bilirubin.indirect [Mass or moles/Vol] 0.2 mg/dL Normal 0.1-0.9 [facility] Comment on above: Performed By: #### 2 594405, 3713908, 1044984, 78328738, 1797136 ####[facility] [address] [place] [address] Globulin (S) [Mass/Vol] 3.0 g/dL Normal 1.4-4.0 [facility] Comment on above: Performed By: #### 2 712689, 3668056, 8843366, 74434844, 7255816 ####[facility] [address] [place] [address] Protein [Mass/Vol] 7.4 g/dL Normal 6.0-7.8 [facility] Comment on above: Performed By: #### 2 170129, 9717241, 9118800, 76970058, 0605099 ####[facility] [address] [place] [address] Lipase Levelon 09-30-2023 Lipase [Catalytic activity/Vol] 61 U/L High 13-58 [facility] Comment on above: Performed By: #### 2 369885, 2406352, 6696588, 77331628, 91969477 #### [facility] [address] [place] [address] SEROLOGYOrdered By: Ariadne Sheehan on 09-30-2023 HCG.beta subunit (U) [Moles/Vol] Negative Normal [facility] Man Sero U BetaHcg Qualon 09-30-2023 HCG.beta subunit (U) [Moles/Vol] Negative Normal [facility] Comment on above: Performed By: #### 2 990051, 3060199, 0850348, 55948667, 95081584 #### [facility] [address] [place] [address] UA with Cult Rflxon 09-30-19 24 Bacteria Auto Ql (U) Trace Normal Trace Fish [facility] Comment on above: Performed By: #### 2 462806, 1096191, 1063311, 47468733, 89646149 #### [facility] [address] [place] [address] Bilirubin Ql (U) Negative Normal Negative [facility] Comment on above: Performed By: #### 2 180126, 1162555, 4413145, 81296087, 41828229 #### [facility] [address] [place] [address] Clarity (U) Clear Normal Clear [facility] Comment on above: Performed By: #### 2 984801, 8058825, 8414500, 63197434, 95023230 #### [facility] [address] [place] [address] Color (U) Light-Yellow Normal Yellow [facility] Comment on above: Result Comment: Micr oscopic readings are only performed on those samples that meet specific criteria set forth by [facility]. Performed By: #### 2 473999, 3696265, 7957501, 27841446, 13770921 #### [facility] [address] [place] [address]9722 Epithelial cells.squamous Auto (Urine sed) [#/Area] 3-4 Abnormal 0-2 [facility] Comment on above: Performed By: #### 2 071375, 3597141, 2217718, 42774898, 03456151 #### [facility] [address] [place] [address] Glucose Ql (U) Negative Normal Negative [facility] Comment on above: Performed By: #### 2 348121, 7223625, 6225743, 78384356, 41897730 #### [facility] [address] [place] [address] 44546 Hemoglobin Auto test strip (U) [Mass/Vol] Trace Abnormal Negative [facility] Comment on above: Performed By: #### 2 532910, 5299637, 9928822, 17759237, 40768616 #### [facility] [address] [place] [address] 59291 Ketones Auto test strip Ql (U) Negative Normal Negative [facility] Comment on above: Performed By: #### 2 706406, 9561599, 6705997, 38521274, 12676959 #### [facility] [address] [place] [address] 24593 Leukocyte esterase Auto test strip Ql (U) 75 Bertrand/uL Abnormal Negative [facility] Comment on above: Performed By: #### 2 960284, 5451138, 8969123, 11923483, 23508053 #### [facility] [address] [place] [address] 98382 Mucus Auto Ql (U) Negative Normal Negative [facility] Comment on above: Performed By: #### 2 921783, 7492444, 5757600, 94445548, 23643008 #### [facility] [address] [place] [address] 25623 Nitrite Auto test strip Ql (U) Negative Normal Negative [facility] Comment on above: Performed By: #### 2 440637, 1906504, 7761203, 94273220, 53172658 #### [facility] [address] [place] [address] 74200 pH (U) 5.5 [pH] Invalid Interpretation Code 5.0-9.0 [facility] Comment on above: Performed By: #### 2 177682, 8111134, 8978567, 20788415, 88749445 #### [facility] [address] [place] [address] 16962 Protein Ql (U) Negative Normal Negative [facility] Comment on above: Performed By: #### 2 930480, 1585933, 8080212, 01026665, 80229553 #### [facility] [address] [place] [address] 71853 RBC Ql (U) 4-20 Abnormal 0-3 [facility] Comment on above: Performed By: #### 2 522866, 3308699, 6613740, 17446893, 84902173 #### [facility] [address] [place] [address] 13050 Specific gravity (U) [Rel density] 1.017 Invalid Interpretation Code 1.005-1.030 [facility] Comment on above: Performed By: #### 2 573167, 9703646, 9167354, 57159235, 14812435 #### [facility] [address] [place] [address] 41243 Urobilinogen (U) [Mass/Vol] Negative Normal Negative [facility] Comment on above: Performed By: #### 2 221130, 3419853, 8815496, 37572608, 96177087 #### [facility] [address] [place] [address] WBC Auto (Urine sed) [#/Area] 0-5 Normal 0-5 [facility] Comment on above: Performed By: #### 2 148698, 8285198, 6676908, 50540299, 27871837 #### [facility] [address] [place] [address] URINALYSISOrdered By: SYSTEM SYSTEM on 09-30-2023 Bacteria [...] that meet specific criteria set forth by [facility]. Epithelial cells.squamous Auto (Urine sed) [...] 4-20 graded/HPF Invalid Interpretation Code 0-3graded/HP F [facility] UA Auto SS Specific gravity (U) [Rel density] 1.017 *NA* (09/30/23 12:08 AM) Invalid Interpretation Code 1.005 - 1.030 [facility] UA Auto SS Urobilinogen (U) [Mass/Vol] Negative Normal Negativemg/d L [facility] UA Auto SS WBC Auto (Urine sed) [#/Area] 0-5 graded/HPF Normal 0-5graded/HP F [facility] UA Auto SS URINALYSISOrdered By: Ritesh bishop on 09-30-2023 UA Spec Desc Clean Catch (09/30/23 12:08 AM) Normal [facility] UA Auto SS US [...] MD Transcribed by: MILLIE Technologist: GERDA Miller [facility] US Pelvis Non-OB Completeon 09-30-2023 US [...] Transvaginal Ultrasound Performed Uterus Position Anteverted Normal [facility] US Transvaginal Non-OBon US Transvaginal Non-OB Exam Date/Time: 09/30/2023 02:03 EDT Reason for Exam: pssible torsion, known large cyst;Other (please specify) Report PLEASE SEE US Pelvis Non-OB Complete REPORT DATED: 09/30/2023. Ordering Provider: Ritesh Heath FINAL REPORT Dictated: 09/30/2023 4:11 am Harvey Leslie MD Signed (Electronic Signature): 09/30/2023 4:11 am Signed by: Harvey Leslie MD Transcribed by: MILLIE Technologist: GERDA Normal [facility] eGFRon 09-30-2023 eGFR 97 mL/min/1.73 m2 Normal >=59 [facility] Comment on above: Order Comment: Order added by Discern Expert. Performed By: #### 2 186060, 6192306, 0626278, 51251317, 76680439 #### [facility] [address] [place] [address] Consent for Treatmenton 09-11 Consent for Treatment [id number] 40 [id number] #1.00TIFF [facility] UA with Cult Rflxon 09-29-19 Type of Urine collection method Clean Catch [facility] Comment on above: Performed By: #### 2 860893, 6661738, 8990752, 59059807, 79548255 #### [facility] [address] [id number] ED Clinical Summaryon 2023 ED Clinical Summary [address] [address] ED Clinical Summary Person Information Name: LIVIA NOYOLA/[facility] Age: 38 Years : 1985 Sex: Female Language: Australian PCP: NONE, XXXX Marital Status: Visit Id: [...] 09/26/2023 18:13:56 ADDRESS: [address] [place] [id number] PHYS DOC NOTES: MEDICAL INFORMATION: Prescriptions Given: New Medications [id number], [address] [place], [place] [id number], [phone] diflunisal (diflunisal 500 mg Tab) 1 Tablets [...] INFORMATION: Instructions: Follow up: With: Address: When: [address] [place] [address] Business (1) In 3 days 09/29/2023 With: Address: When: Tarun [address] [place], [place] [address] Business (1) In 3 days 09/29/2023 With: Address: When: XXXX NONE , [place] In 3 days DIAGNOSIS: Abdominal pain; Constipation; Ovarian cyst Normal [facility] ED Patient Education Noteon 09-27-2023 ED Patient Education Note Normal [facility] ED Patient Summaryon 024 ED Patient Summary [address] [address] Patient Discharge Instructions Person Information Name: LIVIA NOYOLA Age: 38 Years Arrival Date: 09/26/2023 13:54:18 Discharge Diagnosis: Abdominal pain; Constipation; Ovarian cyst Primary Care Physician: SHAZIA, XXXX Provider Information Primary Provider: Konstantin Penny DO Advanced Supersonic Engineer:Shazia The exam and treatment you received in the Emergency Department were for an urgent problem and are not intended as complete care. It is important that you follow up with a doctor, nurse practitioner, or physician?s diploma dental assistant for ongoing care. If your symptoms become worse or you do not improve as expected and you are unable to reach your usual health care provider, you should return to the Emergency Department. We are available 24 hours a day. MAGALILIVIA has been given the following list of patient education materials, prescriptions and follow-up instructions: Follow-up Instructions: With: Address: When: [place] [address] [place] [address] Business (1) In 3 days 09/29/2023 With: Address: When: Tarun [address] [place], [place] [id number] Business (1) In 3 days 09/29/2023 With: [...] opioids can be used to help relieve mqrmgooh-zg-yaqwzu pain and are often prescribed following a [...] and overdose. (more content not included)... Normal [facility] B hCG Qualon 09-26-2023 Beta HCG ( test) Ql Negative Normal [facility] Comment on above: Order Comment: FER dubois attempting lab work from IV start per Pt request. Phleb on standby if unable to get labs, [id number] 09/26/2023 14:42:36 EDT Performed By: #### 2 760148, 5503741, 1940996, 85832505, 33978389 #### [facility] [address] [place] [address] CBC w/ Auto Diffon 4 Anisocytosis Ql (Bld) PRESENT Invalid Interpretation Code [facility] Comment on above: Performed By: #### 2 295046, 5954631, 0543933, 78240938, 52233359 #### [facility] [address] [place] [address] Basophils/100 WBC (Bld) 0.8 % Normal 0.0-2.0 [facility] Comment on above: Performed By: #### 2 051775, 4361597, 1244303, 27299137, 08735143 #### [facility] [address] [place] [address] Basophils/Leukocytes Auto (Bld) [Pure # fraction] 0.1 E9/L Normal 0.0-0.2 [facility] Comment on above: Performed By: #### 2 150763, 4998111, 7658019, 23535630, 84400637 #### [facility] [address] [place] [address] 20033 Eosinophils (Bld) [#/Vol] 0.0 E9/L Normal 0.0-0.5 [facility] Comment on above: Performed By: #### 2 779113, 4527579, 8649999, 54060118, 78559852 #### [facility] [address] [place] [address] Eosinophils/100 WBC (Bld) 0.0 % Normal 0.0-8.0 [facility] Comment on above: Performed By: #### 2 005921, 1236810, 9342283, 83147136, 66003384 #### [facility] [address] [place] [address]5568 Hypochromia Auto Ql (Bld) PRESENT Invalid Interpretation Code [facility] Comment on above: Performed By: #### 2 559213, 4957788, 8875088, 82997449, 79525435 #### [facility] [address] [place] [address]3228 Lymphocytes (Bld) [#/Vol] 1.6 E9/L Normal 1.0-4.0 [facility] Comment on above: Performed By: #### 2 310969, 8718761, 4264930, 96964738, 55151515 #### [facility] [address] [place] [address]121 Lymphocytes/100 WBC (Bld) 22.7 % Normal 14.0-50.0 [facility] Comment on above: Performed By: #### 2 355596, 7166317, 9974318, 38490445, 39813267 #### [facility] [address] [place] [address] 42747 Microcytes Ql (Bld) PRESENT Invalid Interpretation Code [facility] Comment on above: Performed By: #### 2 681756, 7408424, 1512282, 99844705, 56923261 #### [facility] [address] [place] [address] Monocytes (Bld) [#/Vol] 0.3 E9/L Normal 0.2-1.0 [facility] Comment on above: Performed By: #### 2 258408, 4111421, 5432920, 60892720, 35321022 #### [facility] [address] [place] [address] Neutrophils (Bld) [#/Vol] 5.1 E9/L Normal 2.0-7.5 [facility] Comment on above: Performed By: #### 2 496305, 6189275, 8863160, 80090418, 48233127 #### [facility] [address] [place] [address] 77856 Neutrophils/100 WBC (Bld) 71.6 % Normal 36.0-75.0 [facility] Comment on above: Performed By: #### 2 384795, 5072362, 9231029, 08850319, 64336542 #### [facility] [address] [place] [address] 46084 Erythrocyte distribution width (RBC) [Ratio] 17.8 % High 10.9-14.2 [facility] Comment on above: Performed By: #### 2 898877, 8828550, 0539923, 58535793, 77730433 #### [facility] [address] [place] [address] 04267 Hematocrit (Bld) [Volume fraction] 36.2 % Normal 34.0-46.0 [facility] Comment on above: Performed By: #### 2 073530, 8462680, 2802316, 79068263, 06254160 #### [facility] [address] [place] [address] 30921 Hemoglobin (Bld) [Mass/Vol] 11.2 g/dL Low 12.0-16.0 [facility] Comment on above: Performed By: #### 2 738552, 1030296, 1086106, 51114822, 34063423 #### [facility] [address] [place] [address] MCH (RBC) [Entitic mass] 23.2 pg Low 27.0-34.0 [facility] Comment on above: Performed By: #### 2 821797, 4840986, 8746389, 56133828, 22887571 #### [facility] [address] [place] [address] MCHC (RBC) [Mass/Vol] 31.0 g/dL Low 31.4-36.0 [facility] Comment on above: Performed By: #### 2 691866, 5888541, 5364587, 84311308, 28168981 #### [facility] [address] [place] [address] 41862 MCV (RBC) [Entitic vol] 74.9 fL Low 80.0-100.0 [facility] Comment on above: Performed By: #### 2 866771, 0018813, 0369792, 86156162, 34089361 #### [facility] [address] [place] [address] 44077 Platelet mean volume (Bld) [Entitic vol] 7.5 fL Normal 6.4-10.8 [facility] Comment on above: Performed By: #### 2 506084, 5233890, 5603185, 72992395, 72716630 #### [facility] [address] [place] [address] 99803 Platelets (Bld) [#/Vol] 461.0 E9/L Normal 150.0-500.0 [facility] Comment on above: Performed By: #### 2 649400, 5965958, 5457271, 91595056, 87326074 #### [facility] [address] [place] [address] RBC (Bld) [#/Vol] 4.8 E12/L Normal 4.3-5.9 [facility] Comment on above: Performed By: #### 2 329776, 9813375, 8781556, 56774593, 32724357 #### [facility] [address] [place] [address] WBC corrected for nucl RBC Auto (Bld) [#/Vol] 7.1 E9/L Normal 4.0-11.0 [facility] Comment on above: Performed By: #### 2 309641, 5594732, 0031113, 70333901, 64414654 #### [facility] [address] [place] [address] CHEMISTRYOrdered By: SYSTEM SYSTEM on 09-26-2023 Amphetamines [...] 09-26-2023 Albumin [Mass/Vol] 4.7 g/dL Normal 3.3-5.0 [facility] Comment on above: Performed By: #### 2 638338, 9858045, 6846436, 73844642, 24355354 #### [facility] [address] [place] [address] Albumin/Globulin (S) [Mass conc ratio] 1.3 Normal 1.1-2.2 [facility] Comment on above: Performed By: #### 2 583694, 9198749, 7787590, 15785264, 11510320 #### [facility] [address] [place] [address] ALP [Catalytic activity/Vol] 61 Int._Unit/L Normal 21-98 [facility] Comment on above: Performed By: #### 2 956200, 2031025, 8679523, 96120333, 05721198 #### [facility] [address] [place] [address] ALT No additional P-5'-P [Catalytic activity/Vol] 11 Int._Unit/L Normal 6-46 [facility] Comment on above: Performed By: #### 2 967314, 2660860, 5574018, 07948364, 54185307 #### [facility] [address] [place] [address] Anion gap [Moles/Vol] 15 mmol/L Normal 6-16 [facility] Comment on above: Performed By: #### 2 912507, 4076139, 0535868, 03764717, 80972969 #### [facility] [address] [place] [address] AST [Catalytic activity/Vol] 16 Int._Unit/L Normal 5-43 [facility] Comment on above: Performed By: #### 2 255371, 6010193, 0307926, 53974607, 08005329 #### [facility] [address] [place] [address] Bilirubin [Mass/Vol] 0.8 mg/dL Normal 0.0-1.1 [facility] Comment on above: Performed By: #### 2 820204, 1850995, 2356325, 61676431, 71928472 #### [facility] [address] [place] [address] Calcium [Mass/Vol] 9.7 mg/dL Normal 8.9-11.1 [facility] Comment on above: Performed By: #### 2 803723, 9586068, 4585724, 13730427, 97563889 #### [facility] [address] [place] [address] Chloride [Moles/Vol] 107 mmol/L Normal 101-111 [facility] Comment on above: Performed By: #### 2 378650, 8890466, 9204570, 58070312, 61874622 #### [facility] [address] [place] [address] CO2 [Moles/Vol] 20 mmol/L Low 21-31 [facility] Comment on above: Performed By: #### 2 146936, 7222180, 4457748, 02895913, 48403041 #### [facility] [address] [place] [address] Creatinine [Mass/Vol] 0.7 mg/dL Normal 0.5-1.3 [facility] Comment on above: Performed By: #### 2 390096, 0943620, 9666230, 11023778, 32645875 #### [facility] [address] [place] [address] Globulin (S) [Mass/Vol] 3.6 g/dL Normal 1.4-4.0 [facility] Comment on above: Performed By: #### 2 120684, 7461061, 9225454, 28417591, 86834934 #### [facility] [address] [place] [address] Glucose [Mass/Vol] 120 mg/dL Normal 55-199 [facility] Comment on above: Performed By: #### 2 373530, 2763488, 5095404, 74594860, 13263865 #### [facility] [address] [place] [address] Potassium [Moles/Vol] 3.8 mmol/L Normal 3.5-5.3 [facility] Comment on above: Performed By: #### 2 682203, 4782266, 4009158, 23181904, 37692279 #### [facility] [address] [place] [address] Protein [Mass/Vol] 8.3 g/dL High 6.0-7.8 [facility] Comment on above: Performed By: #### 2 723004, 5030575, 5566544, 16749002, 12009533 #### [facility] [address] [place] [address] Sodium [Moles/Vol] 138 mmol/L Normal 135-145 [facility] Comment on above: Performed By: #### 2 634442, 3291954, 3910177, 52377565, 03530795 #### [facility] [address] [place] [address] Urea nitrogen [Mass/Vol] 5 mg/dL Normal 5-21 [facility] Comment on above: Performed By: #### 2 369246, 3463393, 5163374, 02172935, 59589899 #### [facility] [address] [place] [address] Urea nitrogen/Creatinine [Mass ratio] 7 No Units Low 10-20 [facility] Comment on above: Performed By: #### 2 632913, 9714816, 4586240, 66511510, 21127932 #### [facility] [address] [place] [address] CT Abdomen/Pelvis w/ Contras ton 09-26-2023 CT [...] 300 Contrast amount in ml's: [address] [facility] Consent for Treatmenton 09-11 Consent for Treatment [id number] #1.00TIFF Normal [facility] Discharge Instructionson Discharge Instructions [id number] [id number] #1.00TIFF Normal [facility] ED Note-Physicianon 09-26-19 ED Note-Physician Basic Information Time Seen: Konstantin Penny DO 09/26/2023 14:25 Chief Complaint c/o nausea and left abdominal pain radiating to back that started back up yesterday. took bentyl ibuprofen and tramadol around noon with no relief. recent admission to [facility] a week ago for intusseption, ovarian cyst, elevated lactic. denies V/D History of Present Illness 38 year old female presents to the emergency department with chief complaint of abdominal pain. patient states this pain started yesterday and has associated nausea without vomiting. Patient states she was admitted 10 days ago to [facility] for intussusception, ovarian cysts, and elevated lactic. She states she was admitted for one day and that she had another CT done that showed resolution of the intussusception. She reports she was discharged home but went back to [place] ED yesterday for similar pain. She reports [...] and noted. We did review workup from [facility] just recently. Risks and benefits of obtaining [...] differential diagnosis. We did refer her to VISUAL MERCHANDISING COORDINATOR for follow-up. Patient also was found to have some constipation on CT therefore we talked about dietary and lifestyle modifications and I did prescribe MiraLAX here as well. She is to follow-up in the outpatient setting return to ER symptoms should change or worsen she is comfortable with this plan. I, Dr. Penny had a kats-sg-ynaj interaction with the patient. I personally performed [...] q12hr, # 20 tab(s), Refills(s) 0, Pharmacy: [facility]/pharmacy #[id number], 165, cm, 09/26/23 14:18:00 EDT, Height/Length Dosing, 81.2, kg, 09/26/23 14:18:00 EDT, Weight Dosing hyoscyamine, 0.125 mg = 1 tab(s), Oral, QID, X 5 day(s), # 20 tab(s), Refills(s) 0, Pharmacy: [facility]/pharmacy #[id number], 165, cm, 09/26/23 14:18:00 EDT, Height/Length Dosing, 81.2, kg, 09/26/23 14:18:00 EDT, Weight Dosing ketorolac, 30 mg = 1 mL, Injection, IV, Once, Stop date 09/26/23 15:40:00 EDT, STAT, Start date 09/26/23 15:40:00 EDT, 09/26/23 15:40:00 EDT polyethylene glycol 3350, 17 gm, Oral, Daily, X 7 day(s), # 119 gm, Refills(s) 0, Pharmacy: [facility]/pharmacy #6177, 165, cm, 09/26/23 14:18:00 EDT, (more content not included)... Normal [facility] Comment on above: Result Comment: Elec [...] Lipase [Catalytic activity/Vol] 18 U/L Normal 13-58 [facility] Comment on above: Performed By: #### 2 154345, 8273537, 8159388, 02039619, 45799866 #### [facility] [address] [place] [address] Outside Recordson 09-26-2023 Outside Records [id number] 0#1.00TIFF Normal [facility] SEROLOGYOrdered By: Nohemi Taylor on 09-26-2023 Beta HCG ( test) Ql Negative (09/26/23 2:45 PM) Normal [facility] Man Sero U Drug Screenon 09-26-2023 Amphetamines Screen method >1000 ng/mL Ql (U) Negative Normal NEGATIVE [facility] Comment on above: Result Comment: Nega tive Cutoff: <1000 ng/mL Performed By: #### 2 355600, 6425273, 8353809, 35914408, 78950375 #### [facility] [address] [place] [address] Barbiturates Screen Ql (U) Negative Normal NEGATIVE [facility] Comment on above: Result Comment: Nega tive Cutoff: <200 ng/mL Performed By: #### 2 881211, 5556385, 9709564, 80103192, 55867804 #### [facility] [address] [place] [address] Benzodiazepines Ql (U) Negative Normal NEGATIVE [facility] Comment on above: Result Comment: Nega tive Cutoff: <200 ng/mL Performed By: #### 2 441281, 4407454, 2631713, 69891100, 85389184 #### [facility] [address] [place] [address] Cannabinoids Screen Ql (U) Negative Normal NEGATIVE [facility] Comment on above: Result Comment: Nega tive Cutoff: <50 ng/mL Performed By: #### 2 093164, 5820080, 4466833, 12355747, 59818453 #### [facility] [address] [place] [address] Cocaine Ql (U) Negative Normal NEGATIVE [facility] Comment on above: Result Comment: Nega tive Cutoff: <300 ng/mL Performed By: #### 2 109360, 4661841, 6903077, 72025446, 99251162 #### [facility] [address] [place] [address] Opiates Screen Ql (U) Negative Normal NEGATIVE [facility] Comment on above: Result Comment: Nega tive Cutoff: <300 ng/mL Performed By: #### 2 809390, 9471377, 7973308, 75840971, 92456851 #### [facility] [address] [place] [address] Phencyclidine Screen method >25 ng/mL Ql (U) Negative Normal NEGATIVE [facility] Comment on above: Result Comment: Nega tive Cutoff: <25 ng/mL These drug screen results are to be used for medical (i.e., treatment) purposes only. Unconfirmed drug screening results must not be used for non-medical purposes (e.g., employment testing, legal testing). Performed By: #### 2 637695, 7230097, 9764454, 45388800, 41231858 #### [facility] [address] [place] [address] U Fentanyl Negative Normal NEGATIVE [facility] Comment on above: Result Comment: Nega tive Cutoff: <5 ng/mL These drug screen results are to be used for medical (i.e., treatment) purposes only. Unconfirmed drug screening results must not be used for non-medical purposes (e.g., employment testing, legal testing). Performed By: #### 2 928891, 7785013, 1337186, 95961161, 28431142 #### [facility] [address] [place] [address] UA with Cult Rflxon 09-26-19 24 Bilirubin Ql (U) Negative Normal Negative [facility] Comment on above: Performed By: #### 2 670479, 7410785, 1931241, 69832433, 76780700 #### [facility] [address] [place] [address] Clarity (U) Clear Normal Clear [facility] Comment on above: Performed By: #### 2 634975, 4298043, 7576625, 29283889, 55808524 #### [facility] [address] [place] [address] Color (U) Colorless Abnormal Yellow [facility] Comment on above: Result Comment: Micr oscopic readings are only performed on those samples that meet specific criteria set forth by [facility]. Performed By: #### 2 129369, 7075374, 6699372, 99683436, 59970234 #### [facility] [address] [place] [address] Glucose Ql (U) Negative Normal Negative [facility] Comment on above: Performed By: #### 2 493101, 1010921, 4173504, 11662920, 83376618 #### [facility] [address] [place] [address] Hemoglobin Auto test strip (U) [Mass/Vol] Negative Normal Negative [facility] Comment on above: Performed By: #### 2 789878, 8310209, 4470144, 93029891, 52646127 #### [facility] [address] [place] [address] Ketones Auto test strip Ql (U) Negative Normal Negative [facility] Comment on above: Performed By: #### 2 907030, 8298544, 1576623, 30401036, 84019192 #### [facility] [address] [place] [address] Leukocyte esterase Auto test strip Ql (U) Negative Normal Negative [facility] Comment on above: Performed By: #### 2 772007, 4434233, 5528035, 91095194, 74024310 #### [facility] [address] [place] [address] Nitrite Auto test strip Ql (U) Negative Normal Negative [facility] Comment on above: Performed By: #### 2 408838, 9998438, 6105855, 16535248, 27116494 #### [facility] [address] [place] [address] pH (U) 6.0 [pH] Invalid Interpretation Code 5.0-9.0 [facility] Comment on above: Performed By: #### 2 752207, 0922971, 2455376, 22010810, 10333608 #### [facility] [address] [place] [address] Protein Ql (U) Negative Normal Negative [facility] Comment on above: Performed By: #### 2 344119, 4822116, 1061923, 09377862, 63616734 #### [facility] [address] [place] [address] Specific gravity (U) [Rel density] 1.004 Invalid Interpretation Code 1.005-1.030 [facility] Comment on above: Performed By: #### 2 099358, 5146212, 0078211, 84580634, 80945679 #### [facility] [address] [place] [address] Urobilinogen (U) [Mass/Vol] Negative Normal Negative [facility] Comment on above: Performed By: #### 2 304332, 1933839, 6809371, 50594597, 88939665 #### [facility] [address] [place] [address] Type of Urine collection method Clean Catch Normal [facility] Comment on above: Performed By: #### 2 429462, 7412348, 6622120, 78310633, 76406957 #### [facility] [address] [place] [address] URINALYSISOrdered By: SYSTEM SYSTEM on 09-26-2023 Bilirubin [...] that meet specific criteria set forth by [facility]. Glucose Ql (U) Negative Normal [...] Desc Clean Catch (09/26/23 2:49 PM) Normal [facility] UA Auto SS US Pelvis Non-OB Completeon [...] Transvaginal Ultrasound Performed Uterus Position Anteverted Normal [facility] US Transvaginal Non-OBon US Transvaginal Non-OB Exam Date/Time: 09/26/2023 17:41 EDT Reason for Exam: Pelvic pain Report Please see ultrasound pelvis non-OB complete report Ordering Provider: Konstantin Penny FINAL REPORT Dictated: 09/26/2023 5:53 pm Chad Mo DO Signed (Electronic Signature): 09/26/2023 5:53 pm Signed by: Chad Mo DO Transcribed by: MILLIE Technologist: HAILEY Miller [facility] eGFRon 09-26-2023 eGFR 114 mL/min/1.73 m2 Normal >=59 [facility] Comment on above: Order Comment: Order added by Discern Expert. Performed By: #### 2 509513, 5286861, 3884802, 36619866, 49928492 #### [facility] [address] [place] [address] CBC With Platelet and Differ entialon 09-06-2023 Basophils (Bld) [#/Vol] 0.1 10*3/uL Normal 0.0-0.2 [facility] Comment on above: Performed By: #### C BCWD #### [facility] [address] [place] [address] Basophils/100 WBC (Bld) 0.6 % Normal [facility] Comment on above: Performed By: #### C BCWD #### [facility] [address] [place] [address] Eosinophils (Bld) [#/Vol] 0.1 10*3/uL Normal 0.0-0.7 [facility] Comment on above: Performed By: #### C BCWD #### [facility] [address] [place] [address] Eosinophils/100 WBC (Bld) 0.6 % Normal [facility] Comment on above: Performed By: #### C BCWD #### [facility] [address] [place] [address] Erythrocyte distribution width (RBC) [Ratio] 15.9 % Critically high 11.5-14.5 [facility] Comment on above: Performed By: #### C BCWD #### [facility] [address] [place] [address] Hematocrit (Bld) [Volume fraction] 34.5 % Low 37.0-47.0 [facility] Comment on above: Performed By: #### C BCWD #### [facility] [address] [place] [address] Hemoglobin (Bld) [Mass/Vol] 10.1 g/dL Low 12.0-16.0 [facility] Comment on above: Performed By: #### C BCWD #### [facility] [address] [place] [address] Lymphocytes (Bld) [#/Vol] 4.4 10*3/uL Normal 1.0-4.8 [facility] Comment on above: Performed By: #### C BCWD #### [facility] [address] [place] [address] Lymphocytes/100 WBC (Bld) 54.2 % Normal [facility] Comment on above: Performed By: #### C BCWD #### [facility] [address] [place] [address] MCH (RBC) [Entitic mass] 22.9 pg Low 27.0-31.3 [facility] Comment on above: Performed By: #### C BCWD #### [facility] [address] [place] [address] MCHC 29.3 % Low 33.0-37.0 [facility] Comment on above: Performed By: #### C BCWD #### [facility] [address] [place] [address] MCV (RBC) [Entitic vol] 78.2 fL Low 79.4-94.8 [facility] Comment on above: Performed By: #### C BCWD #### [facility] [address] [place] [address] Monocytes (Bld) [#/Vol] 0.5 10*3/uL Normal 0.2-0.8 [facility] Comment on above: Performed By: #### C BCWD #### [facility] [address] [place] [address] Monocytes/100 WBC (Bld) 6.5 % Normal [facility] Comment on above: Performed By: #### C BCWD #### [facility] [address] [place] [address] Neutrophils (Bld) [#/Vol] 3.1 10*3/uL Normal 1.4-6.5 [facility] Comment on above: Performed By: #### C BCWD #### [facility] [address] [place] [address] Neutrophils/100 WBC (Bld) 37.9 % Normal [facility] Comment on above: Performed By: #### C BCWD #### [facility] [address] [place] [address] Platelets (Bld) [#/Vol] 482 10*3/uL Critically high 130-40 0 [facility] Comment on above: Performed By: #### C BCWD #### [facility] [address] [place] [address] RBC (Bld) [#/Vol] 4.41 10*6/uL Normal 4.20-5.40 [facility] Comment on above: Performed By: #### C BCWD #### [facility] [address] [place] [address] WBC (Bld) [#/Vol] 8.1 10*3/uL Normal 4.8-10.8 [facility] Comment on above: Performed By: #### C BCWD #### [facility] [address] [place] [address] Comprehensive Metabolic Pane van 09-06-2023 Albumin [Mass/Vol] 4.4 g/dL Normal 3.5-4.6 [facility] Comment on above: Performed By: #### C MP #### [facility] [address] [place] [address] ALP [Catalytic activity/Vol] 72 U/L Normal 40-130 [facility] Comment on above: Performed By: #### C MP #### [facility] [address] [place] [address] ALT [Catalytic activity/Vol] 15 U/L Normal 0-33 [facility] Comment on above: Performed By: #### C MP #### [facility] [address] [place] [address] Anion gap [Moles/Vol] 11 mmol/L Normal 9-15 [facility] Comment on above: Performed By: #### C MP #### [facility] [address] [place] [address] AST [Catalytic activity/Vol] 18 U/L Normal 0-35 [facility] Comment on above: Performed By: #### C MP #### [facility] [address] [place] [address] Bilirubin [Mass/Vol] 0.4 mg/dL Normal 0.2-0.7 [facility] Comment on above: Performed By: #### C MP #### [facility] [address] [place] [address] Calcium [Mass/Vol] 9.5 mg/dL Normal 8.5-9.9 [facility] Comment on above: Performed By: #### C MP #### [facility] [address] [place] [address] Chloride [Moles/Vol] 102 mmol/L Normal 95-107 [facility] Comment on above: Performed By: #### C MP #### [facility] [address] [place] [address] CO2 [Moles/Vol] 24 mmol/L Normal 20-31 [facility] Comment on above: Performed By: #### C MP #### [facility] [address] [place] [address] Creatinine [Mass/Vol] 0.59 mg/dL Normal 0.50-0.90 [facility] Comment on above: Performed By: #### C MP #### [facility] [address] [place] [address] GFR >90.0 Normal >60 [facility] Comment on above: Result Comment: Meghan [...] secretion. Performed By: #### C MP #### [facility] [address] [place] [address] Globulin (S) [Mass/Vol] 3.5 g/dL Normal 2.3-3.5 M [facility] Comment on above: Performed By: #### C MP #### [facility] [address] [place] [address] Glucose [Mass/Vol] 98 mg/dL Normal 70-99 [facility] Comment on above: Performed By: #### C MP #### [facility] [address] [place] [address] Potassium [Moles/Vol] 3.2 mmol/L Low 3.4-4.9 [facility] Comment on above: Performed By: #### C MP #### [facility] [address] [place] [address] Protein [Mass/Vol] 7.9 g/dL Normal 6.3-8.0 [facility] Comment on above: Performed By: #### C MP #### [facility] [address] [place] [address] Sodium [Moles/Vol] 137 mmol/L Normal 135-144 [facility] Comment on above: Performed By: #### C MP #### [facility] [address] [place] [address] Urea nitrogen [Mass/Vol] 4 mg/dL Low 6-20 [facility] Comment on above: Performed By: #### C MP #### [facility] [address] [place] [address] US NON OB TRANSVAGINALon US NON OB [...] Jessy Campos MD 09/06/23 Final result Normal [facility] US PELVIS COMPLETEon 024 US PELVIS [...] Jessy Campos MD 09/06/23 Final result Normal [facility] Urinalysis, reflex to cultur silvino 09-06-2023 Urine Reflexed to Culture Not Indicated Normal [facility] Comment on above: Performed By: #### U AR #### [facility] [address] [place] [address] Bilirubin Ql (U) Negative Normal Negative [facility] Comment on above: Performed By: #### U AR #### [facility] [address] [place] [address] Clarity (U) Clear Normal Clear [facility] Comment on above: Performed By: #### U AR #### [facility] [address] [place] [address] Color (U) Yellow Normal Straw/Morris [facility] Comment on above: Performed By: #### U AR #### [facility] [address] [place] [address] Glucose Ql (U) >=1000 Abnormal Negative [facility] Comment on above: Performed By: #### U AR #### [facility] [address] [place] [address] Hemoglobin Ql (U) TRACE Abnormal Negative [facility] Comment on above: Performed By: #### U AR #### [facility] [address] [place] [address] Ketones Ql (U) >=80 Abnormal Negative [facility] Comment on above: Performed By: #### U AR #### [facility] [address] [place] [address] Leukocyte esterase Test strip Ql (U) Negative Normal Negative [facility] Comment on above: Performed By: #### U AR #### [facility] [address] [place] [address] Nitrite Ql (U) Negative Normal Negative [facility] Comment on above: Performed By: #### U AR #### [facility] [address] [place] [address] pH (U) 5.0 [pH] Normal 5.0-9.0 [facility] Comment on above: Performed By: #### U AR #### [facility] [address] [place] [address] Protein Ql (U) TRACE Abnormal Negative [facility] Comment on above: Performed By: #### U AR #### [facility] [address] [place] [address] Specific gravity (U) [Rel density] 1.025 Normal 1.005-1.03 [facility] Comment on above: Performed By: #### U AR #### [facility] [address] [place] [address] Urobilinogen Qn (U) 0.2 {Ivone'U}/dL Normal < 2.0 [facility] Comment on above: Performed By: #### U AR #### [facility] [address] [place] [address] Urine Microscopicon 09-06-19 24 Bacteria LM.HPF (Urine sed) [#/Area] Negative Normal Negative [facility] Comment on above: Performed By: #### U ARELIS #### [facility] [address] [place] [address] Urine Epithelial Cells Auto 0-2 Normal 0-5 [facility] Comment on above: Performed By: #### U ARELIS #### [facility] [address] [place] [address] Urine Hyaline Casts Auto 0-1 Normal 0-5 [facility] Comment on above: Performed By: #### U ARELIS #### [facility] [address] [place] [address] Urine RBC Auto 3-5 Abnormal 0-5 [facility] Comment on above: Performed By: #### U ARELIS #### [facility] [address] [place] [address] Urine WBC Auto 0-2 Normal 0-5 [facility] Comment on above: Performed By: #### U ARELIS #### [facility] [address] [place] [address] ED Note-Physicianon 08-01-19 ED Note-Physician Basic Information [...] endometritis for which she follows with a EVENT SET UP SPECIALIST at the [facility]. Review of Systems A 10 [...] for discharge home and follow-up with her EVENT SET UP SPECIALIST. Short course of pain medication as prescribed after an OARRS review for this patient. Return precautions were discussed. All questions were answered. The patient was discharged home for outpatient follow-up for her acute on chronic pain. Assessment/Plan Abdominal pain, acute (R10.9: Unspecified abdominal pain) Ordered: acetaminophen-oxycod one, 1 tab(s), Oral, q6hr Pain 8-10 for 3 day(s), 12 tab(s), Refill(s) 0, [id number], 165.1, cm, 02/18/24 15:42:00 EST, Height/Length Dosing, [...] Discharge D (more content not included)... Normal [facility] Comment on above: Result Comment: Elec tronically Signed By: Jignesh Dumont DO.br\Date and Time Signed: 08/01/23 09:21 EST B hCG Qualon 07-31-2023 Beta HCG ( test) Ql Negative Normal [facility] Comment on above: Performed By: #### 2 648340, 2712838, 6145165, 32237094, 84969368 #### [facility] [address] [place] [address] BMPon 07-31-2023 Anion gap [Moles/Vol] 15 mmol/L Normal 6-16 [facility] Comment on above: Performed By: #### 2 747093, 3758537, 7338426, 46016973, 14629681 #### [facility] [address] [place] [address] BUN/Creat Ratio 4 No Units Low 10-20 [facility] Comment on above: Performed By: #### 2 543674, 0714895, 8741865, 05726323, 71273226 #### [facility] [address] [place] [address] Calcium [Mass/Vol] 9.6 mg/dL Normal 8.9-11.1 [facility] Comment on above: Performed By: #### 2 568168, 4663886, 1067097, 03154471, 68529298 #### [facility] [address] [place] [address] Chloride [Moles/Vol] 106 mmol/L Normal 101-111 [facility] Comment on above: Performed By: #### 2 357567, 1692941, 6033028, 49165740, 67481194 #### [facility] [address] [place] [address] CO2 [Moles/Vol] 21 mmol/L Normal 21-31 [facility] Comment on above: Performed By: #### 2 211693, 5072975, 0167358, 37160735, 66815625 #### [facility] [address] [place] [address] Creatinine [Mass/Vol] 0.9 mg/dL Normal 0.5-1.3 [facility] Comment on above: Performed By: #### 2 527532, 2070315, 6603501, 42065287, 11977634 #### [facility] [address] [place] [address] Glucose [Mass/Vol] 109 mg/dL Normal 55-199 [facility] Comment on above: Performed By: #### 2 194628, 3348596, 9537253, 97304750, 88591710 #### [facility] [address] [place] [address] Potassium [Moles/Vol] 3.6 mmol/L Normal 3.5-5.3 [facility] Comment on above: Performed By: #### 2 590869, 0038035, 3954021, 99216089, 61281146 #### [facility] [address] [place] [address] Sodium [Moles/Vol] 138 mmol/L Normal 135-145 [facility] Comment on above: Performed By: #### 2 472876, 8390876, 2843362, 78123209, 75483290 #### [facility] [address] [place] [address] Urea nitrogen [Mass/Vol] mg/dL Low 5-21 [facility] Comment on above: Performed By: #### 2 817948, 2297675, 0802116, 30123026, 41413802 #### [facility] [address] [place] [address] CBC w/ Auto Diffon 4 Anisocytosis Ql (Bld) PRESENT Invalid Interpretation Code [facility] Comment on above: Performed By: #### 2 493453, 4288636, 5333585, 16274139, 97883641 #### [facility] [address] [place] [address] Microcyte PRESENT Invalid Interpretation Code [facility] Comment on above: Performed By: #### 2 292681, 8665658, 2913188, 96356258, 59764692 #### [facility] [address] [place] [address] RBC morphology finding Nom (Bld) SEE MORPHOLOGY Invalid Interpretation Code [facility] Comment on above: Performed By: #### 2 305160, 0832091, 1070369, 96825038, 11535788 #### [facility] [address] [place] [address] Basophil Absolute 0.1 E9/L Normal 0.0-0.2 [facility] Comment on above: Performed By: #### 2 206415, 6150604, 0632367, 31227294, 64883999 #### [facility] [address] [place] [address] Basophils/100 WBC (Bld) 1.1 % Normal 0.0-2.0 [facility] Comment on above: Performed By: #### 2 551820, 0293162, 1203779, 51325198, 76089496 #### [facility] [address] [place] [address] Eos Absolute 0.0 E9/L Normal 0.0-0.5 [facility] Comment on above: Performed By: #### 2 691658, 2845322, 7225390, 57758337, 99137952 #### [facility] [address] [place] [address] Eosinophils/100 WBC (Bld) 0.2 % Normal 0.0-8.0 [facility] Comment on above: Performed By: #### 2 330545, 4095220, 1574767, 57874736, 49128318 #### [facility] [address] [place] [address] Erythrocyte distribution width (RBC) [Ratio] 16.5 % High 10.9-14.2 [facility] Comment on above: Performed By: #### 2 832057, 7925489, 5340817, 96544504, 31952307 #### [facility] [address] [place] [address] Hematocrit (Bld) [Volume fraction] 36.0 % Normal 34.0-46.0 [facility] Comment on above: Performed By: #### 2 677728, 1750310, 0685761, 52193425, 67089111 #### [facility] [address] [place] [address] Hemoglobin (Bld) [Mass/Vol] 11.4 g/dL Low 12.0-16.0 [facility] Comment on above: Performed By: #### 2 690228, 7384685, 2721741, 96933836, 44868620 #### [facility] [address] [place] [address] Lymph Absolute 2.2 E9/L Normal 1.0-4.0 [facility] Comment on above: Performed By: #### 2 867586, 0705162, 9406784, 83889869, 08426662 #### [facility] [address] [place] [address] Lymphocytes/100 WBC (Bld) 25.3 % Normal 14.0-50.0 [facility] Comment on above: Performed By: #### 2 045257, 3081595, 7681010, 78389429, 59150827 #### [facility] [address] [place] [address] MCH (RBC) [Entitic mass] 24.0 pg Low 27.0-34.0 [facility] Comment on above: Performed By: #### 2 015654, 5430234, 3939229, 21415247, 02278050 #### [facility] [address] [place] [address] MCHC (RBC) [Mass/Vol] 31.9 g/dL Normal 31.4-36.0 [facility] Comment on above: Performed By: #### 2 825199, 6302237, 1625245, 16731278, 78638438 #### [facility] [address] [place] [address] MCV (RBC) [Entitic vol] 75.2 fL Low 80.0-100.0 [facility] Comment on above: Performed By: #### 2 058121, 5911910, 1323476, 79875182, 42166143 #### [facility] [address] [place] [address] [place] Absolute 0.5 E9/L Normal 0.2-1.0 [facility] Comment on above: Performed By: #### 2 965319, 8354414, 0891978, 69559484, 07125725 #### [facility] [address] [place] [address] Monocytes/100 WBC (Bld) 5.4 % Normal 4.0-14.0 [facility] Comment on above: Performed By: #### 2 915830, 1759742, 3930406, 93937654, 83140326 #### [facility] [address] [place] [address] Neutro Absolute 5.9 E9/L Normal 2.0-7.5 [facility] Comment on above: Performed By: #### 2 190130, 9658680, 9942623, 79654785, 65697540 #### [facility] [address] [place] [address] Neutro Auto 68.0 % Normal 36.0-75.0 [facility] Comment on above: Performed By: #### 2 287929, 4913120, 6951696, 67975790, 36021518 #### [facility] [address] [place] [address] Platelet 612.0 E9/L High 150.0-500.0 [facility] Comment on above: Performed By: #### 2 301185, 9096125, 5339962, 20437004, 65012245 #### [facility] [address] [place] [address] Platelet mean volume (Bld) [Entitic vol] 7.4 fL Normal 6.4-10.8 [facility] Comment on above: Performed By: #### 2 721931, 1929222, 1654553, 59196816, 57482561 #### [facility] [address] [place] [address] RBC 4.7 E12/L Normal 4.3-5.9 [facility] Comment on above: Performed By: #### 2 691401, 2499416, 1096189, 51373387, 87195955 #### [facility] [address] [place] [address] WBC 8.6 E9/L Normal 4.0-11.0 [facility] Comment on above: Performed By: #### 2 704441, 8456158, 8394618, 00539174, 23831886 #### [facility] [address] [place] [address] CHEMISTRYOrdered By: SYSTEM SYSTEM on 07-31-2023 Albumin [...] Oral contrast amount in ml's: [address] [facility] Discharge Instructionson Discharge Instructions [id number] 020 [id number] #[id number] Normal [facility] ED Clinical Summaryon 2023 ED Clinical Summary [place] [address] ED Clinical Summary Person Information Name: LIVIA NOYOLA/[facility] Age: 38 Years : 1985 Sex: Female Language: Australian PCP: NONE, XXXX Marital Status: Visit Id: [...] 07/31/2023 18:03:59 ADDRESS: [address] [place] [id number] PHYS DOC NOTES: MEDICAL INFORMATION: Prescriptions Given: New Medications [id number], [address] [place], [place] [id number], [phone] acetaminophen-oxycod one (Percocet 5 mg-325 mg oral [...] up: With: Address: When: Follow-up with your EVENT SET UP SPECIALIST at [facility] In 3 days 08/03/2023 Comments: [...] symptoms. DIAGNOSIS: Abdominal pain, acute Normal [facility] ED Patient Education Noteon 07-31-2023 ED Patient [...] these instructions at home: Medicines ? Take komq-kky-qiyzfyi and prescription medicines only as told by [...] your condition for any changes. ? Take wpjy-aow-spwgzto and prescription medicines only as told by [...] provider. Document Revised: 07/18/2020 Document Reviewed: 10/08/2019 [employer] Patient Education ? [address] [facility] ED Patient Summaryon 024 ED Patient Summary [place] [id number] Patient Discharge Instructions Person Information Name: LIVIA NOYOLA Age: 38 Years Arrival Date: 07/31/2023 15:33:06 Discharge Diagnosis: Abdominal pain, acute Primary Care Physician: NONE, XXXX Provider Information Primary Provider: Jignesh Dumont DO Advanced Supersonic Engineer:Shazia The exam and treatment you received in the Emergency Department were for an urgent problem and are not intended as complete care. It is important that you follow up with a doctor, nurse practitioner, or physician?s diploma dental assistant for ongoing care. If your symptoms [...] Instructions: With: Address: When: Follow-up with your EVENT SET UP SPECIALIST at [facility] In 3 days 08/03/2023 Comments: [...] opioids can be used to help relieve vmbjyqcs-az-zfonoe pain and are often prescribed following a [...] and al (more content not included)... Normal [facility] HEMATOLOGYOrdered By: Sloane Mazariegos on 07-31-2023 [...] Low 80.0 - 100.0 fL Remisol Heme [place] Absolute 0.5 E9/L Normal 0.2 - 1.0 [...] 07-31-2023 Albumin [Mass/Vol] 4.6 g/dL Normal 3.3-5.0 [facility] Comment on above: Performed By: #### 2 688926, 2647125, 6877280, 69264079, 49590169 #### [facility] [address] [place] [address] Albumin/Globulin [Mass ratio] 1.4 {ratio} Normal 1.1-2.2 [facility] Comment on above: Performed By: #### 2 930940, 0683332, 5521436, 83359293, 93964945 #### [facility] [address] [place] [address] Alk Phos 73 Int._Unit/L Normal 21-98 [facility] Comment on above: Performed By: #### 2 167273, 9557295, 0693402, 17429742, 81228138 #### [facility] [address] [place] [address] ALT 10 Int._Unit/L Normal 6-46 [facility] Comment on above: Performed By: #### 2 570019, 0834702, 2184161, 52125039, 21645255 #### [facility] [address] [place] [address] AST 11 Int._Unit/L Normal 5-43 [facility] Comment on above: Performed By: #### 2 155558, 7751524, 4185368, 36487149, 05715397 #### [facility] [address] [place] [address] Bili Direct 0.1 mg/dL Normal 0.0-0.4 [facility] Comment on above: Performed By: #### 2 102633, 4014582, 9532198, 20538319, 33553094 #### [facility] [address] [place] [address] Bili Indirect 0.4 mg/dL Normal 0.1-0.9 [facility] Comment on above: Performed By: #### 2 676468, 2306298, 1128918, 16007503, 91228162 #### [facility] [address] [place] [address] Bili Total 0.5 mg/dL Normal 0.0-1.1 [facility] Comment on above: Performed By: #### 2 940415, 7836544, 7401515, 58605084, 61408495 #### [facility] [address] [place] [address] Globulin (S) [Mass/Vol] 3.3 g/dL Normal 1.4-4.0 [facility] Comment on above: Performed By: #### 2 184770, 1396272, 0078634, 51713634, 60554375 #### [facility] [address] [place] [address] Protein [Mass/Vol] 7.9 g/dL High 6.0-7.8 [facility] Comment on above: Performed By: #### 2 497823, 2166759, 0363019, 65197570, 13912911 #### [facility] [address] [place] [address] Monitor Recordon 07-31-2023 Monitor Record [id number] 2#1.00TIFF Normal [facility] SEROLOGYOrdered By: Felicity patel on 07-31-2023 Beta HCG ( test) Ql Negative (07/31/23 4:20 PM) Normal [facility] Man Sero UA With Cult Reflexon 2023 Bacteria LM Ql (Urine sed) TRACE Normal Trace [facility] Comment on above: Performed By: #### 1 0790447 ####[facility] [address] [place] [address] Bilirubin Ql (U) Negative Normal Negative [facility] Comment on above: Performed By: #### 1 4418822 ####[address] [address] Clarity (U) CLEAR Normal Clear [facility] Comment on above: Performed By: #### 1 5509114 ####[address] [address] Color (U) YELLOW Normal Yellow [facility] Comment on above: Performed By: #### 1 1543835 ####[address] [address] Epithelial cells.squamous LM.HPF (Urine sed) [#/Area] 0-2 Normal 0-2 [facility] Comment on above: Performed By: #### 1 4846552 ####[facility] [address] [place] [address] Glucose Test strip (U) [Mass/Vol] Negative Normal Negative [facility] Comment on above: Performed By: #### 1 0416929 ####[address] [address] Hemoglobin Ql (U) Negative Normal Negative [facility] Comment on above: Performed By: #### 1 8472308 ####[address] [address] Ketones (U) [Mass/Vol] 1+ Abnormal Negative Fi [facility] Comment on above: Performed By: #### 1 7699548 ####[facility] [address] [place] [address] [place].plasma/[place]. RBC (Bld) [Mass ratio] 0-3 Normal 0-3 [facility] Comment on above: Performed By: #### 1 3495224 ####[address] [address] Mucus Ql (Urine sed) TRACE Normal [facility] Comment on above: Performed By: #### 1 2504421 ####[address] [address] Nitrite Ql (U) Negative Normal Negative [facility] Comment on above: Performed By: #### 1 8228109 ####[address] [address] pH (U) 8.5 [pH] Invalid Interpretation Code 5.0-9.0 [facility] Comment on above: Performed By: #### 1 7627768 ####[address] [address] Protein (U) [Mass/Vol] Negative Normal Negative [facility] Comment on above: Performed By: #### 1 8584740 ####[address] [address] Specific gravity (U) [Rel density] 1.015 Invalid Interpretation Code 1.005-1.030 [facility] Comment on above: Performed By: #### 1 3552408 ####[address] [address] Type of Urine collection method Clean Catch Normal [facility] Comment on above: Performed By: #### 1 3819928 ####[address] [address] Urobilinogen Qn (U) 0.2 {Ivone'U}/dL Normal 0.0-1.0 [facility] Comment on above: Performed By: #### 1 3987468 ####[facility] [address] [place] [address] WBC Auto Ql (U) Negative Normal Negative [facility] Comment on above: Performed By: #### 1 8615574 ####[facility] [address] [place] [address] WBC LM.HPF (Urine sed) [#/Area] 0-5 Normal 0-5 [facility] Comment on above: Performed By: #### 1 2654187 ####[facility] [address] [place] [address] URINALYSISOrdered By: Felicity George on 07-31-2023 Bacteria [...] Interpretation Code Negative [facility] UA Auto SS [place].plasma/[place]. RBC (Bld) [Mass ratio] 0-3 /HPF Normal [...] [Mass/Vol] Negative (07/31/23 4:30 PM) Normal Negative [facility] UA Auto SS Specific gravity (U) [Rel density] 1.015 *NA* (07/31/23 4:30 PM) Invalid Interpretation Code 1.005 - 1.030 [facility] UA Auto SS UA Spec Desc Clean Catch (07/31/23 4:30 PM) Normal [facility] UA Auto SS Urobilinogen Qn (U) 0.4357096 {Ivone'U}/dL Normal 0.0 - 1.0 EU/dL [facility] UA Auto SS WBC Auto Ql (U) Negative (07/31/23 4:30 PM) Normal Negative [facility] UA Auto SS WBC LM.HPF (Urine sed) [#/Area] 0-5 /HPF Normal 0-5/HPF [facility] UA Auto SS eGFRon 07-31-2023 eGFR 85 mL/min/1.73 m2 Normal >=59 [facility] Comment on above: Order Comment: Order added by Discern Expert. Performed By: #### 2 590308, 8559915, 3755565, 68572612, 76342706 #### [facility] [address] [place] [address] ED NOTEon 06-23-2023 ED NOTE HNO ID: [id number] Author: DENNIS CAMARGO RN Service: ? Author Type: Registered Nurse Type: ED Notes Filed: 06/22/2023 22:17 Note Text: Patient given verbal and written D/C instructions. Medications and follow up care discussed. Instructed to return to ED if conditions and symptoms persist or worsen. All questions addressed and answered pt verbalized understanding. [facility]. Normal [facility] HAV IgM Ser Qlon 06-23-2023 HAV IgM Ql (S) Negative Normal Negative [facility] Comment on above: Order Comment: Speci men Type: BLOOD SPECIMENOrdering Facility: [facility] Address: [address] [place] [address] Result Comment: No e vidence of recent infection with Hepatitis A virus. Performed By: #### 3 1204-1, 5195-3, 46898-0 ####[facility] LABCLIA [id number] [place] [address] [place] HBV core IgM Ser Qlon 2023 HBV core IgM Ql (S) Negative Normal Negative [facility] Comment on above: Order Comment: Roselyn conway Type: BLOOD SPECIMENOrdering Facility: [facility] Address: [address] [place] [address] Result Comment: No e vidence of recent infection with Hepatitis B virus. Should recent infection be suspected, repeat testing may be considered 3-4 weeks after this draw. Performed By: #### 3 1204-1, 5195-3, 60994-7 ####[facility] LABCLIA [id number] [address] [place] HBV surface Ag Ser Qlon 06-13 HBV surface Ag Ql (S) Negative Normal Negative [facility] Comment on above: Order Comment: Roselyn conway Type: BLOOD SPECIMENOrdering Facility: [facility] Address: [address] [place] [address] Performed By: #### 3 1204-1, 5195-3, 01619-9 ####[facility] LABCLIA [id number] [place] [id number] [place] HCV RNA SerPl [facility]+probe-[facility] on 06-23-2023 HCV RNA SENAIT+probe Qn Not detected Normal HCV RNA not detected by PCR. [facility] Comment on above: Order Comment: Roselyn conway Type: BLOOD SPECIMEN [facility] Address: [address] [place] [address] Performed By: #### 1 1011-4 #### [facility] CLIA [id number] [address] [place] [id number] [place] ALLIED HEALTHon 06-22-2023 ALLIED HEALTH HNO ID: [id number] Author: SELENA AMADOR RT(R) Service: Radiology Author [...] PERIPHERAL IV DATA: Inpatient - refer to [facility] documentation RADIOLOGY DEPARTMENT: CT; Exam(s) Completed: Abdomen/Pelvis SIGNATURE: RT Jose(R) PATIENT NAME: Livia Noyola DATE: June 22, 2023 TIME: 7:46 PM [facility] ALLIED HEALTH HNO ID: [id number] Author: DELLA BEST RDMS, RVT Service: Radiology Author Type: Fireworks Inspector Type: Allied Health Filed: 06/22/2023 18:55 Note [...] RDMS, RVT June 22, 2023 6:55 PM [facility] CBC W Auto Differential pane l (Bld)on 06-22-2023 Basophils (Bld) [#/Vol] 0.03 10*3/uL Normal <0.11 [facility] Comment on above: Order Comment: Speci men Type: BLOOD SPECIMENOrdering Facility: [facility] Address: [address] [place] [address] Performed By: #### 5 7021-8 ####[facility] LABORATORYCLIA [id number] [place] [address] [place] Basophils/100 WBC (Bld) 0.6 % [facility] Comment on above: Order Comment: Speci men Type: BLOOD SPECIMENOrdering Facility: [facility] Address: [address] [place] [address] Performed By: #### 5 7021-8 ####[facility] LABORATORYCLIA [id number] [place] [id number] [place] Differential cell count method Nom (Bld) Auto [facility] Comment on above: Order Comment: Speci men Type: BLOOD SPECIMENOrdering Facility: [facility] Address: [address] [place] [address] Performed By: #### 5 7021-8 ####[facility] LABORATORYCLIA [id number] [place] [address] [place] Eosinophils (Bld) [#/Vol] 0.03 10*3/uL Normal <0.46 [facility] Comment on above: Order Comment: Speci men Type: BLOOD SPECIMENOrdering Facility: [facility] Address: [address] [place] [address] Performed By: #### 5 7021-8 ####[facility] LABORATORYCLIA [id number] [address] [place], [place] [address] [place] Eosinophils/100 WBC (Bld) 0.6 % Normal [facility] Comment on above: Order Comment: Speci men Type: BLOOD SPECIMENOrdering Facility: [facility] Address: [address] [place] [address] Performed By: #### 5 7021-8 ####[facility] LABORATORYCLIA [id number] [address] [place] [address] [place] Erythrocyte distribution width (RBC) [Ratio] 16.5 % High 11.5-15.0 [facility] Comment on above: Order Comment: Speci men Type: BLOOD SPECIMENOrdering Facility: [facility] Address: [address] [place] [address] Performed By: #### 5 7021-8 ####[facility] LABORATORYCLIA [id number] [address] [place] Hematocrit (Bld) [Volume fraction] 37.7 % Normal 36.0-46.0 [facility] Comment on above: Order Comment: Speci men Type: BLOOD SPECIMENOrdering Facility: [facility] Address: [address] [place] [address] Performed By: #### 5 7021-8 ####[facility] LABORATORYCLIA [id number] [place] [id number] [place] Hemoglobin (Bld) [Mass/Vol] 11.7 g/dL Normal 11.5-15.5 [facility] Comment on above: Order Comment: Speci men Type: BLOOD SPECIMENOrdering Facility: [facility] Address: [address] [place] [address] Performed By: #### 5 7021-8 ####[facility] LABORATORYCLIA [id number] [address] [place] Immature granulocytes (Bld) [#/Vol] 10*3/uL Normal <0.10 [facility] Comment on above: Order Comment: Speci men Type: BLOOD SPECIMENOrdering Facility: [facility] Address: [address] [place] [address] Performed By: #### 5 7021-8 ####[facility] LABORATORYCLIA [id number] [address] [place] [address] [place] Immature granulocytes/100 WBC (Bld) 0.4 % Normal [facility] Comment on above: Order Comment: Speci men Type: BLOOD SPECIMENOrdering Facility: [facility] Address: [address] [place] [address] Performed By: #### 5 7021-8 ####[facility] LABORATORYCLIA [id number] [place] [address] [place] Lymphocytes (Bld) [#/Vol] 1.87 10*3/uL Normal 1.00-4.00 [facility] Comment on above: Order Comment: Speci men Type: BLOOD SPECIMENOrdering Facility: [facility] Address: [address] [place] [address] Performed By: #### 5 7021-8 ####[facility] LABORATORYCLIA [id number] [address] Lymphocytes/100 WBC (Bld) 34.4 % Normal [facility] Comment on above: Order Comment: Speci men Type: BLOOD SPECIMENOrdering Facility: [facility] Address: [address] [place] [address] Performed By: #### 5 7021-8 ####[facility] LABORATORYCLIA [id number] [place] [address] [place] MCH (RBC) [Entitic mass] 24.5 pg Low 26.0-34.0 [facility] Comment on above: Order Comment: Speci men Type: BLOOD SPECIMENOrdering Facility: [facility] Address: [address] [place] [address] Performed By: #### 5 7021-8 ####[facility] LABORATORYCLIA [id number] [address] [place] [address] [place] MCHC (RBC) [Mass/Vol] 31.0 g/dL Normal 30.5-36.0 [facility] Comment on above: Order Comment: Speci men Type: BLOOD SPECIMENOrdering Facility: [facility] Address: [address] [place] [address] Performed By: #### 5 7021-8 ####[facility] LABORATORYCLIA [id number] [address] [place], [place] [address] [place] MCV (RBC) [Entitic vol] 79.0 fL Low 80.0-100.0 L [facility] Comment on above: Order Comment: Speci men Type: BLOOD SPECIMENOrdering Facility: [facility] Address: [address] [place] [address] Performed By: #### 5 7021-8 ####[facility] LABORATORYCLIA [id number] [place] [address] [place] Monocytes (Bld) [#/Vol] 0.25 10*3/uL Normal <0.87 [facility] Comment on above: Order Comment: Speci men Type: BLOOD SPECIMENOrdering Facility: [facility] Address: [address] [place] [address] Performed By: #### 5 7021-8 ####[facility] LABORATORYCLIA [id number] [place] [address] [place] Monocytes/100 WBC (Bld) 4.6 % Normal [facility] Comment on above: Order Comment: Speci men Type: BLOOD SPECIMENOrdering Facility: [facility] Address: [address] [place] [address] Performed By: #### 5 7021-8 ####[facility] LABORATORYCLIA [id number] [place] [address] [place] Neutrophils (Bld) [#/Vol] 3.23 10*3/uL Normal 1.45-7.50 [facility] Comment on above: Order Comment: Speci men Type: BLOOD SPECIMENOrdering Facility: [facility] Address: [address] [place] [address] Performed By: #### 5 7021-8 ####[facility] LABORATORYCLIA [id number] [address] [place] [address] [place] Neutrophils/100 WBC (Bld) 59.4 % Normal [facility] Comment on above: Order Comment: Speci men Type: BLOOD SPECIMENOrdering Facility: [facility] Address: [address] [place] [address] Performed By: #### 5 7021-8 ####[facility] LABORATORYCLIA [id number] [place] [address] [place] Nucleated RBC (Bld) [#/Vol] 10*3/uL Normal <0.01 [facility] Comment on above: Order Comment: Speci men Type: BLOOD SPECIMENOrdering Facility: [facility] Address: [address] [place] [address] Performed By: #### 5 7021-8 ####[facility] LABORATORYCLIA [id number] [place] [address] [place] Nucleated RBC/100 WBC (Bld) [Ratio] 0.0 /100 WBC Normal [facility] Comment on above: Order Comment: Speci men Type: BLOOD SPECIMENOrdering Facility: [facility] Address: [address] [place] [address] Performed By: #### 5 7021-8 ####[facility] LABORATORYCLIA [id number] [place] [address] [place] Platelet mean volume (Bld) [Entitic vol] 9.4 fL Normal 9.0-12.7 [facility] Comment on above: Order Comment: Speci men Type: BLOOD SPECIMENOrdering Facility: [facility] Address: [address] [place] [address] Performed By: #### 5 7021-8 ####[facility] LABORATORYCLIA [id number] [place] [address] [place] Platelets (Bld) [#/Vol] 486 10*3/uL High 150-400 [facility] Comment on above: Order Comment: Speci men Type: BLOOD SPECIMENOrdering Facility: [facility] Address: [address] [place] [address] Performed By: #### 5 7021-8 ####[facility] LABORATORYCLIA [id number] [place] [id number] [place] RBC (Bld) [#/Vol] 4.77 10*6/uL Normal 3.90-5.[address] [facility] Comment on above: Order Comment: Speci men Type: BLOOD SPECIMENOrdering Facility: [facility] Address: [address] [place] [address] Performed By: #### 5 7021-8 ####[facility] LABORATORYCLIA [id number] [place] [id number] [place] WBC (Bld) [#/Vol] 5.43 10*3/uL Normal 3.70-11.[address] [facility] Comment on above: Order Comment: Speci men Type: BLOOD SPECIMENOrdering Facility: [facility] Address: [address] [place] [address] Performed By: #### 5 7021-8 ####[facility] LABORATORYCLIA [id number] [place] [id number] [place] CT ABD/PEL W [...] Tissues: No significant finding. Lower thorax: Unremarkable. Production Bow Maker (topogram) images: Unremarkable. IMPRESSION: No acute intra-abdominal or pelvic process identified. Dining Service Supervisor: PSCB Transcribe Date/Time: Jun 22 2023 8:25P Dictated by : CHAD SCHILLING MD This examination was interpreted and the report reviewed and electronically signed by: CHAD SCHILLING MD on Jun 22 2023 8:29PM EST [id number] CN Normal [facility] Comprehensive metabolic 2000 panelon 06-22-2023 Albumin [Mass/Vol] 4.8 g/dL Normal 3.9-4.9 [facility] Comment on above: Order Comment: Speci men Type: BLOOD SPECIMENOrdering Facility: [facility] Address: [address] [place] [address] Performed By: #### 2 4323-8, 0-3, ####[facility] LABORATORYCLIA [id number] [place] [address] [place] ALP [Catalytic activity/Vol] 108 U/L Normal 34-123 [facility] Comment on above: Order Comment: Speci men Type: BLOOD SPECIMENOrdering Facility: [facility] Address: [address] [place] [address] Performed By: #### 2 4323-8, 3040-3, ####[facility] LABORATORYCLIA [id number] [place] [id number] [place] ALT [Catalytic activity/Vol] 63 U/L High 7-38 [facility] Comment on above: Order Comment: Speci men Type: BLOOD SPECIMENOrdering Facility: [facility] Address: [address] [place] [address] Performed By: #### 2 4323-8, 3040-3, ####[facility] LABORATORYCLIA [id number] [place] [address] [place] Anion gap [Moles/Vol] 13 mmol/L Normal 9-18 [facility] Comment on above: Order Comment: Speci men Type: BLOOD SPECIMENOrdering Facility: [facility] Address: [place] [address] Performed By: #### 2 4323-8, 0-3, ####[facility] LABORATORYCLIA [id number] [place] [id number] [place] AST [Catalytic activity/Vol] 109 U/L High 13-35 [facility] Comment on above: Order Comment: Speci men Type: BLOOD SPECIMENOrdering Facility: [facility] Address: [place] [address] Performed By: #### 2 4323-8, 3039-3, ####[facility] LABORATORYCLIA [id number] [place] [address] [place] Bilirubin [Mass/Vol] 0.4 mg/dL Normal 0.2-1.[address] [facility] Comment on above: Order Comment: Speci men Type: BLOOD SPECIMENOrdering Facility: [facility] Address: [place] [address] Performed By: #### 2 4323-8, 3039-3, ####[facility] LABORATORYCLIA [id number] [place] [id number] [place] Calcium [Mass/Vol] 9.6 mg/dL Normal 8.5-10.2 [facility] Comment on above: Order Comment: Speci men Type: BLOOD SPECIMENOrdering Facility: [facility] Address: [place] [address] Performed By: #### 2 4323-8, 3039-3, ####[facility] LABORATORYCLIA [id number] [place] [id number] [place] Chloride [Moles/Vol] 102 mmol/L Normal 97-[address] [facility] Comment on above: Order Comment: Speci men Type: BLOOD SPECIMENOrdering Facility: [facility] Address: [address] [place] [address] Performed By: #### 2 4323-8, 3040-3, ####[facility] LABORATORYCLIA [id number] [place] [id number] [place] CO2 [Moles/Vol] 23 mmol/L Normal 22-30 [facility] Comment on above: Order Comment: Speci men Type: BLOOD SPECIMENOrdering Facility: [facility] Address: [address] [place] [address] Performed By: #### 2 4323-8, 3040-3, ####[facility] LABORATORYCLIA [id number] [place] [id number] [place] [facility] Creatinine [Mass/Vol] 0.64 mg/dL Normal 0.58-0.96 [facility] Comment on above: Order Comment: Speci men Type: BLOOD SPECIMENOrdering Facility: [facility] Address: [address] [place] [address] Performed By: #### 2 4323-8, 3040-3, ####[facility] LABORATORYCLIA [id number] [address] Creatinine and Glomerular filtration rate.predicted panel (S/P/Bld) 118 mL/min/1.73m??? Normal >=60 [facility] Comment on above: Order Comment: Speci men Type: BLOOD SPECIMENOrdering Facility: [facility] Address: [address] [place] [address] Result Comment: Shelley mated Glomerular Filtration Rate [...] GFR. Performed By: #### 2 4323-8, 3040-3, 28877-3 ####[facility]ATION[facility] LABORATORYCLIA [id number] [address] [place] [address] [place] Glucose [Mass/Vol] 102 mg/dL High 74-99 [facility] Comment on above: Order Comment: Speci men Type: BLOOD SPECIMENOrdering Facility: [facility] Address: [address] [place] [address] Result Comment: The [place] [employer] (ADA) provides guidance for cutoff [...] Standards of Medical Care in Diabetes 2016, [place] [employer]. Diabetes Care. 2016.39(Suppl 1). Performed By: #### 2 4323-8, 3, ####[facility] LABORATORYCLIA [id number] [place] [id number] [place] Potassium [Moles/Vol] 3.8 mmol/L Normal 3.7-5.1 [facility] Comment on above: Order Comment: Roselyn zoraida Type: BLOOD SPECIMENOrdering Facility: [facility] Address: [address] [place] [address] Performed By: #### 2 4323-8, 3039-3, ####[facility]ATIONISM LABORATORYCLIA [id number] [place] [id number] [place] Protein [Mass/Vol] 8.2 g/dL High 6.3-8.0 [facility] Comment on above: Order Comment: Samiai men Type: BLOOD SPECIMENOrdering Facility: [facility] Address: [address] [place] [address] Performed By: #### 2 4323-8, 03, ####RESTORATIONISM LABORATORYCLIA [id number] [place] [id number] [place] Sodium [Moles/Vol] 138 mmol/L Normal 136-144 [facility] Comment on above: Order Comment: Speci men Type: BLOOD SPECIMENOrdering Facility: [facility] Address: [place] [address] Performed By: #### 2 4323-8, 3040-3, 10777-1 ####REST[facility]ATIONISM LABORATORYCLIA [id number] [place] [id number] [place] Urea nitrogen [Mass/Vol] 8 mg/dL Normal 7-21 [facility] Comment on above: Order Comment: Speci men Type: BLOOD SPECIMENOrdering Facility: [facility] Address: [place] [address] Performed By: #### 2 4323-8, 3040-3, ####RESTORATIONISM LABORATORYCLIA [id number] [place] [id number] [facility] ECG COMPLETEon 06-22-2023 ECG COMPLETE Ventricular Rate : 105 BPM Atrial Rate : 103 BPM P-R Interval : 152 ms QRS Duration : 77 ms Q-T Interval : 324 ms QTC Calculation(Bazett) : 429 ms Calculated P Ceres : 42 degrees Calculated R Ceres : 56 degrees Calculated T Ceres : 49 degrees Sinus tachycardia Low voltage, precordial leads Anteroseptal infarct, old Abnormal ECG no stemi 1814 Confirmed by MD SEN BRENT ([id number]), editor school photograph STEPHENIE ERIC (1940) on 06/23/2023 12:09:36 PM NAME : LIVIA NOYOLA PID : [id number] : 1985 Gender : Female Race : ORD : [id number] Procedure Date : Jun 22 2023 18:10:13 Edit Date : Jun 23 2023 12:09:40 Diagnosis: Sinus tachycardia Low voltage, precordial leads Anteroseptal infarct, old Abnormal ECG no stemi 1814 Confirmed by MD SEN BRENT ([id number]), editor school photograph STEPHENIE ERIC (1940) on 06/23/2023 12:09:36 PM Test Reason : Tachycardia Location : 502 : [facility] ED Overread By : MD SEN BRENT Edited By : STEPHENIE ERIC Referred By : , Acquired by : DAVID, [facility] ED NOTEon 06-22-2023 ED NOTE HNO ID: [id number] Author: DENNIS CAMARGO RN Service: ? Author Type: Registered Nurse Type: ED Notes Filed: 06/22/2023 21:56 Note Text: Assumed care of pt at this time and received report from previous RN. [facility] ED NOTE HNO ID: [id number] Author: MATILDE DAVIS RN Service: Nursing Author Type: Registered Nurse Type: ED Notes Filed: 06/22/2023 17:38 Note Text: Pt presents with LLQ pain that radiates to back that began this morning but worsened one hour prior to arrival. Denies urinary complaints. [facility] ED PROV NOTEon 06-22-2023 ED PROV NOTE HNO ID: [id number] Author: EVGENY SEN MD Service: Emergency Medicine [...] with some relief. 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 Normal [facility] ED Triage Noteon 06-22-2023 ED Triage Note HNO ID: [id number] Author: TABBY LUCIANO PA-C Service: ? Author Type: Physician Slitting Machine Feeder Type: ED Triage Notes Filed: 06/22/2023 17:43 Note Text: ED INTAKE NOTE Patient Name: Lviia Noyola Service Date: 06/22/23 BRIEF HPI: 38 [...] treating team. SIGNATURE: Tabby Luciano PA-C Normal [facility] HCG Preg Ur Qlon 06-22-2023 HCG ( test) Ql (U) Negative Normal Negative [facility] Comment on above: Order Comment: Speci men Type: URINE SPECIMENOrdering Facility: [facility] Address: [address] [place] [address] Result Comment: This test is intended to aid in the early detection of . Very dilute urine samples, as indicated by a low specific gravity, may not contain unit support representative levels of hCG. This test detects [...] for . Performed By: #### 2 106-3 ####RESTORATIONISM LABORATORYCLIA [id number] [place] [id number] [place] Lipase SerPl-cCncon 06-22-19 Lipase [Catalytic activity/Vol] 34 U/L Normal 16-61 [facility] Comment on above: Order Comment: Speci men Type: BLOOD SPECIMENOrdering Facility: [facility] Address: [address] [place] [address] Performed By: #### 2 4323-8, 3040-3, 49018-0 ####RESTORATIONISM LABORATORYCLIA [id number] [place] [id number] [place] Magnesium SerPl-mCncon 06-22 Magnesium [Mass/Vol] 2.2 mg/dL Normal 1.7-2.[address] [facility] Comment on above: Order Comment: Speci men Type: BLOOD SPECIMENOrdering Facility: [facility] Address: [address] [place] [address] Performed By: #### 2 4323-8, 3040-3, 63460-7 ####RESTORATIONISM LABORATORYCLIA [id number] [place] [id number] [place] [facility] US DOPPLER COMPLETEon 2023 US DOPPLER COMPLETE [...] and stored in a permanent archive. MQ: [facility]_2021 COMPARISON: None RESULT: Uterus: -Size: 8.1 x [...] Normal sonographic appearance of the female pelvis. Dining Service Supervisor: PSCB Transcribe Date/Time: Jun 22 2023 7:44P Dictated by : Vasu BURNS MD This examination was interpreted and the report reviewed and electronically signed by: Vasu BURNS MD on Jun 22 2023 7:48PM EST [id number] [facility] FEMALE PELVIS TRANSABD LT Don 06-22-2023 US [...] Normal sonographic appearance of the female pelvis. Dining Service Supervisor: ANTONIO Transcribe Date/Time: Jun 22 2023 7:44P Dictated by : Vasu BURNS MD This examination was interpreted and the report reviewed and electronically signed by: Vasu BURNS MD on Jun 22 2023 7:48PM EST [id number] [facility] FEMALE PELVIS TRANSVAGon 06-22-2023 FEMALE PELVIS TRANSVAG * * *Final Report* * * DATE OF EXAM: Jun 22 2023 6:54PM [facility] 1060 - US FEMALE PELVIS [...] Normal sonographic appearance of the female pelvis. Dining Service Supervisor: ANTONIO Transcribe Date/Time: Jun 22 2023 7:44P Dictated by : Vasu BURNS MD This examination was interpreted and the report reviewed and electronically signed by: Vasu BURNS MD on Jun 22 2023 7:48PM EST [id number] Normal [facility] Urinalysis complete panel (U )on 06-22-2023 Bacteria LM.HPF (Urine sed) [#/Area] Few Abnormal None Seen [facility] Comment on above: Order Comment: Speci men Type: URINE SPECIMENOrdering Facility: [facility] Address: [address] [place] [address] Performed By: #### 2 4356-8 ####[facility] SYSTEMCLIA [id number] [place] [address] [place] Bilirubin Ql (U) Negative Normal Negative [facility] Comment on above: Order Comment: Speci men Type: URINE SPECIMENOrdering Facility: [facility] Address: [address] [place] [address] Performed By: #### 2 4356-8 ####RESTORATIONISM LABORATORYCLIA [id number] [address] [place] Clarity (Unsp spec) Clear Normal Clear [facility] Comment on above: Order Comment: Speci men Type: URINE SPECIMENOrdering Facility: [facility] Address: [address] [place] [address] Performed By: #### 2 4356-8 ####RESTORATIONISM LABORATORYCLIA [id number] [address] [place] [address] [place] Color (U) Yellow Normal Yellow [facility] Comment on above: Order Comment: Speci men Type: URINE SPECIMENOrdering Facility: [facility] Address: [address] [place] [address] Performed By: #### 2 4356-8 ####RESTORATIONISM LABORATORYCLIA [id number] [address] [place] [address] [place] Epithelial cells LM.HPF (Urine sed) [#/Area] Few Normal [facility] Comment on above: Order Comment: Speci men Type: URINE SPECIMENOrdering Facility: [facility] Address: [address] [place] [address] Performed By: #### 2 4356-8 ####RESTORATIONISM LABORATORYCLIA [id number] [address] [place] [address] [facility] Glucose Test strip (U) [Mass/Vol] Negative Normal Negative [facility] Comment on above: Order Comment: Speci men Type: URINE SPECIMENOrdering Facility: [facility] Address: [address] [place] [address] Performed By: #### 2 4356-8 ####RESTORATIONISM LABORATORYCLIA [id number] [address] [place] [address] [place] Hemoglobin Ql (U) Negative Normal Negative [facility] Comment on above: Order Comment: Speci men Type: URINE SPECIMENOrdering Facility: [facility] Address: [address] [place] [address] Performed By: #### 2 4356-8 ####RESTORATIONISM LABORATORYCLIA [id number] [address] [place] [address] [place] Ketones Ql (U) Trace Abnormal Negative [facility] Comment on above: Order Comment: Speci men Type: URINE SPECIMENOrdering Facility: [facility] Address: [address] [place] [address] Performed By: #### 2 4356-8 ####RESTORATIONISM LABORATORYCLIA [id number] [address] [place] [address] [place] Leukocyte esterase Test strip Ql (U) Negative Normal Negative [facility] Comment on above: Order Comment: Speci men Type: URINE SPECIMENOrdering Facility: [facility] Address: [address] [place] [address] Performed By: #### 2 4356-8 ####RESTORATIONISM LABORATORYCLIA [id number] [address] [place], [place] [address] [place] Nitrite Ql (U) Negative Normal Negative [facility] Comment on above: Order Comment: Speci men Type: URINE SPECIMENOrdering Facility: [facility] Address: [address] [place] [address] Performed By: #### 2 4356-8 ####RESTORATIONISM LABORATORYCLIA [id number] [address] [place] [address] [place] pH (U) 6.5 [pH] Normal 5.0-8.0 [facility] Comment on above: Order Comment: Speci men Type: URINE SPECIMENOrdering Facility: [facility] Address: [address] [place] [address] Performed By: #### 2 4356-8 ####RESTORATIONISM LABORATORYCLIA [id number] [place] [address] [place] Protein (U) [Mass/Vol] Negative Normal Negative [facility] Comment on above: Order Comment: Speci men Type: URINE SPECIMENOrdering Facility: [facility] Address: [address] [place] [address] Performed By: #### 2 4356-8 ####RESTORATIONISM LABORATORYCLIA [id number] [place] [id number] [place] RBC LM.HPF (Urine sed) [#/Area] 0-3 /HPF Normal 0-3 /HPF [facility] Comment on above: Order Comment: Speci men Type: URINE SPECIMENOrdering Facility: [facility] Address: [address] [place] [address] Performed By: #### 2 4356-8 ####RESTORATIONISM LABORATORYCLIA [id number] [address] [place] [address] [place] Specific gravity (U) [Rel density] 1.020 Normal 1.005-1.030 [facility] Comment on above: Order Comment: Speci men Type: URINE SPECIMENOrdering Facility: [facility] Address: [address] [place] [address] Performed By: #### 2 4356-8 ####RESTORATIONISM LABORATORYCLIA [id number] [place] [id number] [place] Urobilinogen Ql (U) 1.0 EU/dL Normal 0.2-1.0 EU/dL [facility] Comment on above: Order Comment: Speci men Type: URINE SPECIMENOrdering Facility: [facility] Address: [address] [place] [address] Performed By: #### 2 4356-8 ####RESTORATIONISM LABORATORYCLIA [id number] [place] [address] [place] WBC LM.HPF (Urine sed) [#/Area] 0-5 /HPF Normal 0-5 /HPF [facility] Comment on above: Order Comment: Speci men Type: URINE SPECIMENOrdering Facility: [facility] Address: [address] [place] [address] Performed By: #### 2 4356-8 ####RESTORATIONISM LABORATORYCLIA [id number] [place] [id number] [place] Basic Metabolic Profon 05-30 Anion gap [Moles/Vol] 12 mmol/L Normal 9-17 [facility] Comment on above: Performed By: #### B MP, LIP, LIVP, CDP, HCG #### [facility] [address] [place] [address] Paperhanger Contractor: Jennifer Freire MD BUN/CRE Ratio 7 Low 9-20 [facility] Comment on above: Performed By: #### B MP, LIP, LIVP, CDP, HCG #### [facility] [address] [place] [address] [employer]hanger Contractor: Jennifer Freire MD Calcium [Mass/Vol] 9.8 mg/dL Normal 8.6-10.4 [facility] Comment on above: Performed By: #### B MP, LIP, LIVP, CDP, HCG #### [facility] [address] [place], [place] [id number] [employer] Contractor: Jennifer Freire MD Chloride [Moles/Vol] 99 mmol/L Normal 98-107 [facility] Comment on above: Performed By: #### B MP, LIP, LIVP, CDP, HCG #### [facility] [address] [place], [place] [id number] [employer] Contractor: Jennifer Freire MD CO2 [Moles/Vol] 24 mmol/L Normal 20-[address] [facility] Comment on above: Performed By: #### B MP, LIP, LIVP, CDP, HCG #### [facility] [address] [place] [address] [employer]hanger Contractor: Jennifer Freire MD Creatinine [Mass/Vol] 0.7 mg/dL Normal 0.5-0.9 [facility] Comment on above: Performed By: #### B MP, LIP, LIVP, CDP, HCG #### [facility] [address] [place] [address] [employer]hanger Contractor: Jennifer Freire MD GFR/1.73 sq M.predicted among non-blacks MDRD (S/P/Bld) [Vol rate/Area] mL/min/{1.73_m2} Normal >60 [facility] Comment on above: Result Comment: These [...] B MP, LIP, LIVP, CDP, HCG #### [facility] [address] [place] [address] [employer]hanger Contractor: Jennifer Freire MD Glucose [Mass/Vol] 97 mg/dL Normal 70-99 [facility] Comment on above: Performed By: #### B MP, LIP, LIVP, CDP, HCG #### [facility] [address] [place] [address] Paperhanger Contractor: Jennifer Freire MD Potassium [Moles/Vol] 3.9 mmol/L Normal 3.7-5.3 [facility] Comment on above: Performed By: #### B MP, LIP, LIVP, CDP, HCG #### [facility] [address] [place] [address] [employer]hanger Contractor: Jennifer Freire MD Sodium [Moles/Vol] 135 mmol/L Normal 135-144 [facility] Comment on above: Performed By: #### B MP, LIP, LIVP, CDP, HCG #### [facility] [address] [place] [address] [employer] Contractor: Jennifer Freire MD Urea nitrogen [Mass/Vol] 5 mg/dL Low 6-20 [facility] Comment on above: Performed By: #### B MP, LIP, LIVP, CDP, HCG #### [facility] [address] [place] [address] [employer]hanger Contractor: Jennifer Freire MD CBC with Diffon 05-30-2023 Abs. Basophil 0.02 k/uL Normal 0.00-0.20 [facility] Comment on above: Performed By: #### B MP, LIP, LIVP, CDP, HCG #### [facility] [address] [place] [address] [employer]hanger Contractor: Jennifer Freire MD Abs.Imm.Granulocyte 0.00 k/uL Normal 0.00-0.30 [facility] Comment on above: Performed By: #### B MP, LIP, LIVP, CDP, HCG #### [facility] [address] [place] [address] [employer]hanger Contractor: Jennifer Freire MD Abs.Neutrophil (Seg) 2.21 k/uL Low 2.5-7.0 [facility] Comment on above: Performed By: #### B MP, LIP, LIVP, CDP, HCG #### [facility] [address] [place] [address] [employer]hanger Contractor: Jennifer Freire MD Basophils/100 WBC (Bld) 0 % Normal 0-2 [facility] Comment on above: Performed By: #### B MP, LIP, LIVP, CDP, HCG #### [facility] [address] [place] [address] [employer]hanger Contractor: Jennifer Freire MD Eosinophils (Bld) [#/Vol] 0.05 10*3/uL Normal 0.00-0.40 [facility] Comment on above: Performed By: #### B MP, LIP, LIVP, CDP, HCG #### [facility] [address] [place] [address] [employer]hanger Contractor: Jennifer Freire MD Eosinophils/100 WBC (Bld) 1 % Normal 0-5 [facility] Comment on above: Performed By: #### B MP, LIP, LIVP, CDP, HCG #### [facility] [address] [place] [address] [employer]hanger Contractor: Jennifer Freire MD Erythrocyte distribution width (RBC) [Ratio] 16.5 % High 12.1-15.2 [facility] Comment on above: Performed By: #### B MP, LIP, LIVP, CDP, HCG #### [facility] [address] [place] [address] [employer]hanger Contractor: Jennifer Freire MD Hematocrit (Bld) [Volume fraction] 37.2 % Normal 36.0-46.0 [facility] Comment on above: Performed By: #### B MP, LIP, LIVP, CDP, HCG #### [facility] [address] [place] [address] [employer]hanger Contractor: Jennifer Freire MD Hemoglobin (Bld) [Mass/Vol] 11.7 g/dL Low 12.0-16.0 [facility] Comment on above: Performed By: #### B MP, LIP, LIVP, CDP, HCG #### [facility] [address] [place] [address] [employer]hanger Contractor: Jennifer Freire MD Immature granulocytes/100 WBC (Bld) 0 % Normal 0-5 [facility] Comment on above: Performed By: #### B MP, LIP, LIVP, CDP, HCG #### [facility] [address] [place] [address] [employer]hanger Contractor: Jennifer Freire MD Lymphocytes (Bld) [#/Vol] 2.45 10*3/uL Normal 1.00-4.80 [facility] Comment on above: Performed By: #### B MP, LIP, LIVP, CDP, HCG #### [facility] [address] [place] [address] [employer]hanger Contractor: Jennifer Freire MD Lymphocytes/100 WBC (Bld) 48 % High 15-40 [facility] Comment on above: Performed By: #### B MP, LIP, LIVP, CDP, HCG #### [facility] [address] [place] [address] [employer] Contractor: Jennifer Freire MD MCH (RBC) [Entitic mass] 24.2 pg Low 26.0-34.0 [facility] Comment on above: Performed By: #### B MP, LIP, LIVP, CDP, HCG #### [facility] [address] [place] [id number] [employer]hanger Contractor: Jennifer Freire MD MCHC (RBC) [Mass/Vol] 31.5 g/dL Normal 31.0-37.0 [facility] Comment on above: Performed By: #### B MP, LIP, LIVP, CDP, HCG #### [facility] [address] [place] [address] [employer]hanger Contractor: Jennifer Freire MD MCV (RBC) [Entitic vol] 76.9 fL Low 80.0-100.0 [facility] Comment on above: Performed By: #### B MP, LIP, LIVP, CDP, HCG #### [facility] [address] [place], [place] [phone] [employer]anger Contractor: Jennifer Freire MD Monocytes (Bld) [#/Vol] 0.37 10*3/uL Normal 0.00-1.00 [facility] Comment on above: Performed By: #### B MP, LIP, LIVP, CDP, HCG #### [facility] [address] [place], [place] [phone] [employer]hanger Contractor: Jennifer Freire MD Monocytes/100 WBC (Bld) 7 % Normal 4-8 [facility] Comment on above: Performed By: #### B MP, LIP, LIVP, CDP, HCG #### [facility] [address] [place] [address] [employer]hanger Contractor: Jennifer Freire MD Neutrophil (Seg) 43 % Low 47-[address] [facility] Comment on above: Performed By: #### B MP, LIP, LIVP, CDP, HCG #### [facility] [address] [place], [place] [phone] [employer] Contractor: Jennifer Freire MD Platelet mean volume (Bld) [Entitic vol] 8.7 fL Normal 6.0-12.0 [facility] Comment on above: Performed By: #### B MP, LIP, LIVP, CDP, HCG #### [facility] [address] [place], [place] [phone] ([phone] Paperhanger Contractor: Jennifer Freire MD Platelets (Bld) [#/Vol] 512 10*3/uL High 140-450 [facility] Comment on above: Performed By: #### B MP, LIP, LIVP, CDP, HCG #### [facility] [address] [place] [place], [place] [phone] [employer]anger Contractor: Jennifer Freire MD RBC (Bld) [#/Vol] 4.84 10*6/uL Normal 4.00-5.20 [facility] Comment on above: Performed By: #### B MP, LIP, LIVP, CDP, HCG #### [facility] [address] [place], [place] [id number] [employer]hanger Contractor: Jennifer Freire MD WBC (Bld) [#/Vol] 5.1 10*3/uL Normal 3.5-11.0 [facility] Comment on above: Performed By: #### B MP, LIP, LIVP, CDP, HCG #### [facility] [address] [place], [place] [id number] Paperhanger Contractor: Jennifer Freire MD CT ABDOMEN PELVIS W [...] Marilyn Narvaez MD 05/30/23 Final result Normal [facility] HCG Screen, Bloodon 05-30-20 23 HCG Screen, Blood Negative Normal NEG [facility] Comment on above: Result Comment: Spec imens with hCG levels near the threshold of the test (25 mIU/mL) may give a negative or indeterminate result. In such cases, another test should be performed with a new specimen in 48-72 hours. If early is suspected clinically in this setting, correlation with quantitative serum b-hCG level is suggested. [facility] has confirmed the use of plasma for this test. This has not been cleared or approved by the U.S. Food and Drug Administration. The FDA has determined that such clearance is not necessary. Performed By: #### B MP, LIP, LIVP, CDP, HCG #### [facility] [address] [place], [place] [phone] [employer] Contractor: Jennifer Freire MD Lipaseon 05-30-2023 Lipase [Catalytic activity/Vol] 28 U/L Normal 13-60 [facility] Comment on above: Performed By: #### B MP, LIP, LIVP, CDP, HCG #### [facility] [address] [place], [place] [phone] [employer]anger Contractor: Jennifer Freire MD Liver Profileon 05-30-2023 Albumin [Mass/Vol] 4.3 g/dL Normal 3.5-5.2 [facility] Comment on above: Performed By: #### B MP, LIP, LIVP, CDP, HCG #### [facility] [address] [place], [place] [address] [employer]hanger Contractor: Jennifer Freire MD Alkaline Phos 86 U/L Normal 35-104 [facility] Comment on above: Performed By: #### B MP, LIP, LIVP, CDP, HCG #### [facility] [address] [place], [place] [id number] [employer] Contractor: Jennifer Freire MD ALT [Catalytic activity/Vol] 14 U/L Normal 5-33 [facility] Comment on above: Performed By: #### B MP, LIP, LIVP, CDP, HCG #### [facility] [address] [place] [address] [employer]hanger Contractor: Jennifer Freire MD AST [Catalytic activity/Vol] 18 U/L Normal <32 [facility] Comment on above: Performed By: #### B MP, LIP, LIVP, CDP, HCG #### [facility] [address] [place] [address] [employer]hanger Contractor: Jennifer Freire MD Bilirubin [Mass/Vol] 0.5 mg/dL Normal 0.3-1.2 [facility] Comment on above: Performed By: #### B MP, LIP, LIVP, CDP, HCG #### [facility] [address] [place] [address] Paperhanger Contractor: Jennifer Freire MD Bilirubin, Indirect Can not be calculated Normal 0.0-1.0 [facility] Comment on above: Performed By: #### B MP, LIP, LIVP, CDP, HCG #### [facility] [address] [place] [address] [employer]hanger Contractor: Jennifer Freire MD Bilirubin.indirect [Mass/Vol] mg/dL Normal <0.3 [facility] Comment on above: Performed By: #### B MP, LIP, LIVP, CDP, HCG #### [facility] [address] [place] [address] Paperhanger Contractor: Jennifer Freire MD Protein [Mass/Vol] 7.9 g/dL Normal 6.4-8.3 [facility] Comment on above: Performed By: #### B MP, LIP, LIVP, CDP, HCG #### [facility] [address] [place] [id number] Paperhanger Contractor: Jennifer Freire MD Urinalysis, Routineon 2022 Bilirubin, SemiQt,Ur Negative Normal NEG [facility] Comment on above: Performed By: #### U A #### [facility] [address] [place] [id number] [employer]hanger Contractor: Jennifer Freire MD Blood, Urine Negative Normal NEG [facility] Comment on above: Performed By: #### U A #### [facility] [address] [place], [place] [id number] [employer]hanger Contractor: Jennifer Freire MD Clarity (U) Clear Normal CLEAR [facility] Comment on above: Performed By: #### U A #### [facility] [address] [place] [address] Paperhanger Contractor: Jennifer Freire MD Color (U) Yellow Normal YEL [facility] Comment on above: Performed By: #### U A #### [facility] [address] [place] [address] [employer]hanger Contractor: Jennifer Freire MD Comment Normal [facility] Comment on above: Performed By: #### U A #### [facility] [address] [place], [place] [id number] Paperhanger Contractor: Jennifer Freire MD Glucose Ql (U) Negative Normal NEG [facility] Comment on above: Performed By: #### U A #### [facility] [address] [place], [place] [id number] Paperhanger Contractor: Jennifer Freire MD Ketones Ql (U) Negative Normal NEG [facility] Comment on above: Performed By: #### U A #### [facility] [address] [place], [place] [id number] Paperhanger Contractor: Jennifer Freire MD Leukocyte esterase Test strip Ql (U) Negative Normal NEG [facility] Comment on above: Performed By: #### U A #### [facility] [address] [place] [address] Paperhanger Contractor: Jennifer Freire MD Nitrite,Ur Negative Normal NEG [facility] Comment on above: Performed By: #### U A #### [facility] [address] [place] [address] Paperhanger Contractor: Jennifer Freire MD PH,Ur 8.0 Normal 5.0-8.0 [facility] Comment on above: Performed By: #### U A #### [facility] [address] [place], [place] [id number] Paperhanger Contractor: Jennifer Freire MD Protein Ql (U) Negative Normal NEG [facility] Comment on above: Performed By: #### U A #### [facility] [address] [place], [place] [id number] Paperhanger Contractor: Jennifer Freire MD Spec. Boykin,Ur 1.010 Normal 1.005-1.030 [facility] Comment on above: Performed By: #### U A #### [facility] [address] [place], [place] [phone] Paperhanger Contractor: Jennifer Freire MD Urobilinogen,Ur Normal Normal 0.0-1.[address] [facility] Comment on above: Performed By: #### U A #### [facility] [address] [place], [place] [id number] Paperhanger Contractor: Jennifer Freire MD Discharge Instructionson Discharge Instructions [id number] 120 [id number] #1.00TIFF Normal [facility] ED Clinical Summaryon 2022 ED Clinical Summary [address] [address] ED Clinical Summary Person Information Name: LIVIA NOYOLA/New_Kishore Age: 38 Years : 1985 Sex: Female Language: Australian PCP: BETTIE MIRELES Marital Status: Visit Id: [...] 05/18/2023 00:57:00 ADDRESS: [address] [place] [id number] PHYS DOC NOTES: MEDICAL INFORMATION: Prescriptions Given: Medications to Continue with No Changes Other Medications alprazolam (alprazolam 0.25 mg Tab) budesonide-formotero l (Symbicort 80/4.5 inhalation aerosol with adapter) citalopram (citalopram 20 mg Tab) By Mouth every day. PATIENT EDUCATION INFORMATION: Instructions: Ovarian Cyst Follow up: With: Address: When: Ino [place], [facility] [address], [place] [address] Business (1) In 3 days 05/21/2023 DIAGNOSIS: Bilateral ovarian cysts; Unspecified ovarian cyst, left side Normal [facility] ED Note-Physicianon 05-18-20 ED Note-Physician Basic [...] and Complexity of Problems Differential Diagnosis: [] [facility] Data External documents reviewed: N/A My EKG [...] of discharge with close follow-up with her EVENT SET UP SPECIALIST at the 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 We discussed [...] 05/21/[address], [address] [place] [address]- oNoise (1) Additional Instructions: Patient Education Ovarian Cyst [...] (05/17/23 21:12 (more content not included)... Normal [facility] Comment on above: Result Comment: Elec [...] Follow these instructions at home: ? Take yuzn-jir-eybuuqf and prescription medicines only as told by [...] provider. Document Revised: 11/06/2020 Document Reviewed: 11/06/2020 ShareWithU Patient Education ? [address] [facility] ED Patient Summaryon 023 ED Patient Summary [address] [address] Patient Discharge Instructions Person Information Name: LIVIA NOYOLA Age: 38 Years Arrival Date: 05/17/2023 20:20:39 Discharge Diagnosis: Bilateral ovarian cysts; Unspecified ovarian cyst, left side Primary Care Physician: LLC, GENERIC Provider Information Primary Provider: Ritesh Heath DO Advanced Supersonic Engineer:None The exam and treatment you received in the Emergency Department were for an urgent problem and are not intended as complete care. It is important that you follow up with a doctor, nurse practitioner, or physician?s diploma dental assistant for ongoing care. If your symptoms [...] Instructions: With: Address: When: Ino [address], [facility] [address], [place] [address] Business (1) In 3 days 05/21/2023 In the event that this physician does not participate in your insurance network, please consult with your insurance company to find a nearby participating provider. Patient Education Materials: Ovarian Cyst A MESSAGE TO ALL PATIENTS REGARDING OPIOIDS PRESCRIPTION OPIOIDS: WHAT YOU NEED TO KNOW Prescription opioids can be used to help relieve kqzshxva-fg-ugfich pain and are often prescribed following a [...] be struggling with addiction, tell your health nurse wound care and ask for guidance or call SAMHSA?S National Helpline at 1-806-271-IIVR. (more content not included)... Normal [facility] Pelvis Non-OB Completeon 05-18-2023 Pelvis Non-OB Complete [...] CARMELINA Technical Comments Transabdominal Ultrasound Performed Normal [facility] Auto Diffon 05-17-2023 Basophils/100 WBC (Bld) 0.4 % Normal 0.0-2.0 [facility] Comment on above: Order Comment: Order Added by Lis Expert. Performed By: #### 1 8801116, 5192105, 0033496, 7733538, 4601284, 18357571, 7447730 ####[facility] [place] [address] Basophils/Leukocytes Auto (Bld) [Pure # fraction] 0.0 E9/L Normal 0.0-0.2 [facility] Comment on above: Order Comment: Order Added by Discern Expert. Performed By: #### 1 7180700, 1097845, 3127100, 0110651, 4644722, 52198469, 6878382 ####[address] [address] Eosinophils/100 WBC (Bld) 0.2 % Normal 0.0-8.0 [facility] Comment on above: Order Comment: Order Added by Discern Expert. Performed By: #### 1 5837687, 9351172, 2849981, 8320378, 8087334, 06198287, 5450314 ####[address] [address] Eosinophils/Leukocytes Auto (Bld) [Pure # fraction] 0.0 E9/L Normal 0.0-0.5 [facility] Comment on above: Order Comment: Order Added by Discern Expert. Performed By: #### 1 4481394, 0476904, 6198756, 5376286, 8269919, 61303023, 6019655 ####[address] [address] Lymphocytes/100 WBC (Bld) 33.4 % Normal 14.0-50.0 [facility] Comment on above: Order Comment: Order Added by Discern Expert. Performed By: #### 1 9322934, 4786070, 1385902, 4130834, 3428862, 32702696, 9137958 ####[address] [address] Lymphocytes/Leukocytes Auto (Bld) [Pure # fraction] 2.8 E9/L Normal 1.0-4.0 [facility] Comment on above: Order Comment: Order Added by Discern Expert. Performed By: #### 1 2807555, 2314681, 2492765, 3137120, 7910870, 45819363, 9562808 ####[address] [address] Monocytes/100 WBC (Bld) 9.1 % Normal 4.0-14.0 [facility] Comment on above: Order Comment: Order Added by Discern Expert. Performed By: #### 1 8976707, 4748333, 1998816, 1221656, 7994878, 39780946, 0496777 ####[place] [place] [place] [address] Monocytes/Leukocytes Auto (Bld) [Pure # fraction] 0.8 E9/L Normal 0.2-1.0 [facility] Comment on above: Order Comment: Order Added by Discern Expert. Performed By: #### 1 3465883, 1508138, 9613080, 6016333, 6291883, 63808427, 3037991 ####[address] [place] [address] Neutrophils/100 WBC (Bld) 56.9 % Normal 36.0-75.0 [facility] Comment on above: Order Comment: Order Added by Discern Expert. Performed By: #### 1 9587200, 1825078, 9116908, 1651892, 0117065, 57134364, 9614108 ####[address] [place] [address] Neutrophils/Leukocytes Auto (Bld) [Pure # fraction] 4.8 E9/L Normal 2.0-7.5 [facility] Comment on above: Order Comment: Order Added by Discern Expert. Performed By: #### 1 2517917, 2364456, 7030745, 8407366, 8287606, 14275635, 5303221 ####[address] [place] [address] BMPon 05-17-2023 Creatinine [Mass/Vol] 0.8 mg/dL Normal 0.5-1.3 [facility] Comment on above: Performed By: #### 1 6294952, 8400169, 0918897, 1187067, 4062073, 22744464, 5068993 ####[address] [place] [address] Urea nitrogen [Mass/Vol] 5 mg/dL Normal 5-21 [facility] Comment on above: Performed By: #### 1 2256040, 1642336, 5243570, 4629394, 5114717, 96515607, 3691517 ####[facility] [address] [place] [address] Urea nitrogen/Creatinine [Mass ratio] 6 No Units Low 10-20 [facility] Comment on above: Performed By: #### 1 5727290, 3564794, 6638491, 0782376, 6128360, 22566620, 9166314 ####[facility] [address] [place] [place] [address] Anion gap [Moles/Vol] 11 mmol/L Normal 6-16 [facility] Comment on above: Performed By: #### 1 0472163, 0337357, 7877369, 5903292, 3480311, 11225255, 9871440 ####[facility] [address] [place] [address] Calcium [Mass/Vol] 9.3 mg/dL Normal 8.9-11.1 [facility] Comment on above: Performed By: #### 1 2539265, 3012513, 9036005, 6332900, 7496269, 09163969, 4152127 ####[facility] [address] [facility] [place] [address] Chloride [Moles/Vol] 109 mmol/L Normal 101-111 [facility] Comment on above: Performed By: #### 1 3922007, 4906293, 5492700, 0464732, 5492773, 41013448, 3274560 ####[facility] [address] [place] [address] CO2 [Moles/Vol] 23 mmol/L Normal 21-31 [facility] Comment on above: Performed By: #### 1 3645161, 4145581, 5611771, 4896325, 6407126, 84161382, 4051608 ####[facility] [address] [place] [address] Glucose [Mass/Vol] 104 mg/dL Normal 55-199 [facility] Comment on above: Result Comment: If t his glucose result represents a fasting glucose, interpretation should refer to the following reference range: 55-99 mg/dL Performed By: #### 1 8941886, 2944823, 5511131, 8100673, 4841935, 03019535, 3950210 ####[facility] [address] [place] [address] Potassium [Moles/Vol] 4.1 mmol/L Normal 3.5-5.3 [facility] Comment on above: Performed By: #### 1 1743943, 4647213, 6706462, 5530219, 7901639, 36909083, 5882922 ####[facility] [address] [place] [address] Sodium [Moles/Vol] 139 mmol/L Normal 135-145 [facility] Comment on above: Performed By: #### 1 3077887, 9537047, 6283598, 2737367, 5988997, 71865132, 3706433 ####[facility] [address] [place] [address] CBC w/ Auto Diffon 3 Erythrocyte distribution width (RBC) [Ratio] 18.7 % High 10.9-14.2 [facility] Comment on above: Performed By: #### 1 3230466, 4611279, 1762462, 6482000, 2758450, 91622167, 0129812 #### [facility] [address] [place] [address] Hematocrit (Bld) [Volume fraction] 37.4 % Normal 34.0-46.0 [facility] Comment on above: Performed By: #### 1 4750452, 5500719, 7241314, 6864611, 3416406, 68607084, 5959285 #### [facility] [address] [place] [address] Hemoglobin (Bld) [Mass/Vol] 11.7 g/dL Low 12.0-16.0 [facility] Comment on above: Performed By: #### 1 2642893, 1186502, 2644925, 2031252, 4380460, 14404671, 3751153 #### [facility] [address] [place] [address] MCH (RBC) [Entitic mass] 24.4 pg Low 27.0-34.0 [facility] Comment on above: Performed By: #### 1 7765804, 7220349, 4058892, 8006008, 0516228, 91225746, 4141541 #### [facility] [address] [place] [address] MCHC (RBC) [Mass/Vol] 31.2 g/dL Low 31.4-36.0 [facility] Comment on above: Performed By: #### 1 1467922, 0858104, 3113266, 9659457, 8286195, 66221875, 5870545 #### [facility] [address] [place] [address] MCV (RBC) [Entitic vol] 78.2 fL Low 80.0-100.0 [facility] Comment on above: Performed By: #### 1 7718605, 9303057, 7982331, 9244125, 5122507, 06057498, 0488761 #### [facility] [address] [place] [address] Platelet mean volume (Bld) [Entitic vol] 7.8 fL Normal 6.4-10.8 [facility] Comment on above: Performed By: #### 1 0874294, 7522525, 6696550, 9549663, 4030667, 91891926, 6632641 #### [facility] [address] [place] [address] Platelets (Bld) [#/Vol] 469.0 E9/L Normal 150.0-500.0 [facility] Comment on above: Performed By: #### 1 0746186, 8579457, 4685727, 2238566, 3273814, 07011214, 2081713 #### [facility] [address] [place] [address] RBC (Bld) [#/Vol] 4.8 E12/L Normal 4.3-5.9 [facility] Comment on above: Performed By: #### 1 7503221, 5095783, 9299665, 8909577, 0492505, 38671682, 8171162 #### [facility] [address] [place] [address] WBC corrected for nucl RBC Auto (Bld) [#/Vol] 8.5 E9/L Normal 4.0-11.0 [facility] Comment on above: Performed By: #### 1 5266781, 9779066, 0533815, 7386211, 6428928, 60462162, 9081077 #### [facility] [address] [place] [address] Consent for Treatmenton Consent for Treatment [id number] #1.00TIFF Normal [facility] ED Note-Nursingon 05-17-2023 ED Note-Nursing Pt being transported to [place] at this time Normal [facility] Hep Func Panelon 05-17-2023 Albumin [Mass/Vol] 4.2 g/dL Normal 3.3-5.0 [facility] Comment on above: Performed By: #### 1 2678046, 4144421, 0274475, 9442930, 0804938, 88803995, 3985649 ####[facility] [address] [place] [address] Albumin/Globulin (S) [Mass conc ratio] 1.2 Normal 1.1-2.2 [facility] Comment on above: Performed By: #### 1 1535210, 3694726, 8567773, 6827179, 9505910, 97164839, 5570051 ####[facility] [address] [place] [address] ALP [Catalytic activity/Vol] 58 Int._Unit/L Normal 21-98 [facility] Comment on above: Performed By: #### 1 6079276, 6829014, 0760376, 7255281, 4199783, 03643862, 3969056 ####[facility] [address] [place] [address] ALT No additional P-5'-P [Catalytic activity/Vol] 14 Int._Unit/L Normal 6-46 [facility] Comment on above: Performed By: #### 1 0092810, 2724418, 4071081, 6293374, 4613578, 38826474, 7030821 ####[facility] [address] [place] [address] AST [Catalytic activity/Vol] 21 Int._Unit/L Normal 5-43 [facility] Comment on above: Performed By: #### 1 1223357, 8879501, 7388202, 1034477, 5792077, 63478760, 1292021 ####[facility] [address] [place] [address] Bilirubin [Mass/Vol] 0.6 mg/dL Normal 0.0-1.1 [facility] Comment on above: Performed By: #### 1 9608498, 6305458, 7747557, 3577932, 0889843, 49937405, 8980970 ####[place] [address] Bilirubin.direct [Mass/Vol] 0.1 mg/dL Normal 0.1-0.4 [facility] Comment on above: Performed By: #### 1 3932190, 6228491, 5715197, 4753999, 5999350, 56514683, 7892488 ####[address] [place] [address] Bilirubin.indirect [Mass or moles/Vol] 0.5 mg/dL Normal 0.1-0.9 [facility] Comment on above: Performed By: #### 1 8316785, 2460110, 9361492, 5341168, 0055286, 02397019, 2592999 ####[address] [place] [address] Globulin (S) [Mass/Vol] 3.6 g/dL Normal 1.4-4.0 [facility] Comment on above: Performed By: #### 1 5053259, 4390060, 5540636, 6467794, 9135022, 83435404, 9402508 ####[facility] [address] [place] [address] Protein [Mass/Vol] 7.8 g/dL Normal 6.0-7.8 [facility] Comment on above: Performed By: #### 1 0174346, 5060934, 2076854, 4626219, 3037524, 03082489, 3960118 ####[facility] [address] [place] [address] Lipase Levelon 05-17-2023 Lipase [Catalytic activity/Vol] 57 U/L Normal 13-58 [facility] Comment on above: Performed By: #### 1 8234683, 6036201, 6497357, 0839597, 9417696, 53459768, 7132223 #### [facility] [address] [place] [address] Morphon 05-17-2023 Anisocytosis Ql (Bld) Present Normal [facility] Comment on above: Order Comment: Order Added by Discern Expert. Performed By: #### 1 5366912, 8527987, 1355399, 0525631, 0117539, 88662107, 6505447 #### [facility] [address] [place] [address] Hypochromia Auto Ql (Bld) Present Normal [facility] Comment on above: Order Comment: Order Added by Discern Expert. Performed By: #### 1 8603486, 9953274, 2455872, 6816919, 5144178, 16497716, 7837080 #### [facility] [address] [place] [address] Microcytes Ql (Bld) Present Normal [facility] Comment on above: Order Comment: Order Added by Discern Expert. Performed By: #### 1 3183244, 1826824, 0765670, 8983094, 9900919, 00707589, 2873874 #### [facility] [address] [place] [address] Morphology Edson (Bld) [Interp] See Morphology Normal [facility] Comment on above: Order Comment: Order Added by Discern Expert. Performed By: #### 1 1053685, 6444323, 0163723, 1615885, 4716045, 30922675, 5339297 #### [facility] [address] [place] [address] Ovalocytes LM Ql (Bld) Present Normal [facility] Comment on above: Order Comment: Order Added by Discern Expert. Performed By: #### 1 4324503, 9515752, 0773859, 6984975, 7250573, 42027609, 6161293 #### [facility] [address] [place] [address] U BetaHcg Qualon 05-17-2023 HCG.beta subunit (U) [Moles/Vol] Negative Normal [facility] Comment on above: Performed By: #### 1 5665707, 79553596 ####[facility] [address] [place] [address] UA With Cult Reflexon 2022 Bacteria LM Ql (Urine sed) TRACE Normal Trace [facility] Comment on above: Performed By: #### 1 9181331, 31037206 ####[address] [place] [address] Bilirubin Ql (U) Negative Normal Negative [facility] Comment on above: Performed By: #### 1 3265813, 56670139 ####[address] [place] [address] Clarity (U) CLEAR Normal Clear [facility] Comment on above: Performed By: #### 1 9667588, 30680788 ####[facility] [address] [place] [address] Color (U) YELLOW Normal Yellow [facility] Comment on above: Performed By: #### 1 7282407, 83943032 ####[address] [address] Epithelial cells.squamous LM.HPF (Urine sed) [#/Area] 3-4 Normal 0-2 [facility] Comment on above: Performed By: #### 1 0611867, 76282149 ####[facility] [address] [place] [address] Glucose Test strip (U) [Mass/Vol] Negative Normal Negative [facility] Comment on above: Performed By: #### 1 0144468, 35008898 ####[facility] [address] [place] [address] Hemoglobin Ql (U) Negative Normal Negative [facility] Comment on above: Performed By: #### 1 4463816, 12915047 ####[facility] [address] [place] [address] Ketones (U) [Mass/Vol] TRACE Invalid Interpretation Code Negative [facility] Comment on above: Performed By: #### 1 8846969, 38827458 ####[facility] [address] [place] [address] [place].plasma/[place]. RBC (Bld) [Mass ratio] 0-3 Normal 0-3 [facility] Comment on above: Performed By: #### 1 8634566, 05341132 ####[facility] [address] [place] [address] Mucus Ql (Urine sed) 2+ Normal [facility] Comment on above: Performed By: #### 1 6964753, 97659309 ####[facility] [address] [place] [address] Nitrite Ql (U) Negative Normal Negative [facility] Comment on above: Performed By: #### 1 2988453, 92756823 ####[facility] [address] [facility] [place] [address] pH (U) 6.0 [pH] Invalid Interpretation Code 5.0-9.0 [facility] Comment on above: Performed By: #### 1 7321559, 23025899 ####[facility] [address] [facility] [place] [address] Protein (U) [Mass/Vol] Negative Normal Negative [facility] Comment on above: Performed By: #### 1 1583217, 40639250 ####[facility] [address] [place] [address] Specific gravity (U) [Rel density] >=1.030 Invalid Interpretation Code 1.005-1.030 [facility] Comment on above: Performed By: #### 1 1463729, 00866861 ####[facility] [address] [place] [address] Type of Urine collection method Clean Catch Normal [facility] Comment on above: Performed By: #### 1 8600388, 65791493 ####[address] [address] Urobilinogen Qn (U) 2.0 {Ivone'U}/dL Abnormal 0.0-1.0 [facility] Comment on above: Performed By: #### 1 8691580, 15015982 ####[address] [address] WBC Auto Ql (U) Negative Normal Negative [facility] Comment on above: Performed By: #### 1 5120522, 12403786 ####[address] [address] WBC LM.HPF (Urine sed) [#/Area] 0-5 Normal 0-5 [facility] Comment on above: Performed By: #### 1 3619055, 54569067 ####[address] [address] eGFRon 05-17-2023 GFR/1.73 sq M.predicted among non-blacks MDRD (S/P/Bld) [Vol rate/Area] 98 mL/min/1.73 m2 Normal >=59 [facility] Comment on above: Order Comment: Order added by Discern Expert. Result Comment: Retail Operations Manager franklin kidney disease could be indicated at eGFR's of less than 60 mL/min/1.73m2. Kidney failure is indicated at less than 15 mL/min/1.73m2. Performed By: #### 1 8883229, 8117911, 0556545, 5606041, 6557260, 54634771, 9474425 ####[facility] [address] [place] [address] Alanine aminotransferase [En zymatic activity/volume] in Serum or PlasmaOrdered By: Elier Jackson on 04-30-2023 ALT [Catalytic activity/Vol] 15 U/L Normal 7-52 [facility] Comment on above: Performed By: #### H CGQNT #### [facility] [address] [place] [address] [place] Albumin [Mass/volume] in Ser um or Plasma by Bromocresol green (BCG) dye binding methoOrdered By: Elier Jackson on 04-30-2023 Albumin BCG dye [Mass/Vol] 4.3 g/dL 3.5-5.7 [facility] Alkaline phosphatase [Enzyma tic activity/volume] in Serum or PlasmaOrdered By: Elier Jackson on 04-30-2023 ALP [Catalytic activity/Vol] 68 U/L Normal 34-104 [facility] Comment on above: Performed By: #### H CGQNT #### [facility] [address] [place] [address] Aspartate aminotransferase [ Enzymatic activity/volume] in Serum or PlasmaOrdered By: Elier Jackson on 04-30-2023 AST [Catalytic activity/Vol] 17 U/L Normal 13-39 [facility] Comment on above: Performed By: #### H CGQNT #### [facility] [address] [place] [address] Automated basophil %Ordered By: Elier Jackson on 04-30-2023 Basophils/100 WBC (Bld) 1.3 % Normal . [facility] Comment on above: Performed By: #### H CGQNT #### [facility] [address] [place] [address] Automated basophil countOrde red By: Elier Jackson on 04-30-2023 Basophils (Bld) [#/Vol] 0.0 10*3/uL Normal 0.0-0.2 [facility] Comment on above: Result Comment: PERF ORMED BY: [place] [address] PATHOLOGIST TELEGRAPH REPEATER TECHNICIAN FARNAZ ZULETA M.D. Performed By: #### H CGQNT #### [address] Automated blood monocyte cou ntOrdered By: Elier Velásquezjulian on 04-30-2023 Monocytes (Bld) [#/Vol] 0.3 10*3/uL Normal 0.0-0.8 [facility] Comment on above: Performed By: #### H CGQNT #### [address] Automated eosinophil %Ordere d By: Elier Velásquezjulian on 04-30-2023 Eosinophils/100 WBC (Bld) 0.6 % Normal . [facility] Comment on above: Performed By: #### H CGQNT #### [address] Automated eosinophil countOr dered By: Elierjaqui Jackson on 04-30-2023 Eosinophils (Bld) [#/Vol] 0.0 10*3/uL Normal 0.0-0.45 [facility] Comment on above: Performed By: #### H CGQNT #### [address] Automated erythrocytes count in urine sediment (number/area)Ordered By: Elier Manuel on 04-30-2023 RBC Auto (Urine sed) [#/Area] 5-9 [HPF] 0-4 [facility] Automated leukocytes count i n urine sediment (number/area)Ordered By: Elierjaqui Jackson on 04-30-2023 WBC Auto (Urine sed) [#/Area] 0-1 [HPF] 0-4 [facility] Automated monocyte %Ordered By: Elier Jackson on 04-30-2023 Monocytes/100 WBC (Bld) 7.0 % Normal . [facility] Comment on above: Performed By: #### H CGQNT #### [address] Automated neutrophil %Ordere d By: Elier Jackson on 04-30-2023 Neutrophils/100 WBC (Bld) 46.9 % Normal . [facility] Comment on above: Performed By: #### H CGQNT #### [facility] [address] [place] [address] Automated urine color determ inationOrdered By: Elier Jackson on 04-30-2023 Color (U) Yellow Normal Yellow [facility] Comment on above: Order Comment: Name Collection Type:: Clean-Voided Midstream Performed By: #### U HCG, ADDONUAPLUS #### [facility] [address] [place] [address] Basic Metabolic Panelon 04-13 Creatinine Clr Calc Pharmacy 107.67 Normal [facility] Comment on above: Performed By: #### H CGQNT #### [address] GFR/1.73 sq M.predicted MDRD (S/P/Bld) [Vol rate/Area] mL/min/{1.73_m2} Normal [facility] Comment on above: Performed By: #### H CGQNT #### [address] Bilirubin Test strip Ql (U)O rdered By: Elier Jackson on 04-30-2023 Bilirubin Ql (U) Negative Negative [facility] Bilirubin.direct [Mass/volum e] in Serum or PlasmaOrdered By: Elier Jackson on 04-30-2023 Bilirubin.direct [Mass/Vol] 0.10 mg/dL 0.03-0.18 [facility] Bilirubin.total [Mass/volume ] in Serum or PlasmaOrdered By: Elier Jackson on 04-30-2023 Bilirubin [Mass/Vol] 0.4 mg/dL Normal 0.3-1.0 [facility] Comment on above: Performed By: #### H CGQNT #### [facility] [address] [place] [address] Calcium [Mass/volume] in Ser um or PlasmaOrdered By: Elier Jackson on 04-30-2023 Calcium [Mass/Vol] 9.2 mg/dL Normal 8.6-10.3 [facility] Comment on above: Performed By: #### H CGQNT #### [address] Carbon dioxide, total [Moles /volume] in Serum or PlasmaOrdered By: Elierjaqui Jackson on 04-30-2023 CO2 [Moles/Vol] 20.1 mmol/L Low 21.0-31.0 [facility] Comment on above: Performed By: #### H CGQNT #### [address] Chloride [Moles/volume] in S binu or PlasmaOrdered By: Elier Jackson on 04-30-2023 Chloride [Moles/Vol] 109 mmol/L High 98-107 [facility] Comment on above: Performed By: #### H CGQNT #### [address] Complete Blood Count Auto Di ffon 04-30-2023 Mean Corpuscular HGB Conc 34.7 g/dL Normal 32.0-35.0 [facility] Comment on above: Performed By: #### H CGQNT #### [place] [address] [place] Monocytes/100 WBC (Bld) 16.58 % Normal 0.00-20.00 [facility] Comment on above: Performed By: #### H CGQNT #### [address] NRBC% 0.1 /100{WBC} Normal 0-0.5 [facility] Comment on above: Performed By: #### H CGQNT #### [address] Creatinine [Mass/volume] in Serum or PlasmaOrdered By: Elier Jackson on 04-30-2023 Creatinine [Mass/Vol] 0.65 mg/dL Normal 0.60-1.20 [facility] Comment on above: Performed By: #### H CGQNT #### [place] [address] [place] Dipstick and Microscopicon 1 06-30-2022 Appearance (U) Clear Normal Clear [facility] Comment on above: Order Comment: Name Collection Type:: Clean-Voided Midstream Performed By: #### U HCG, ADDONUAPLUS #### [facility] [address] [place] [address] [place] Bacteria,Urine None Seen Normal None Seen [facility] Comment on above: Order Comment: Name Collection Type:: Clean-Voided Midstream Performed By: #### U HCG, ADDONUAPLUS #### [facility] [address] [place] [id number] [place] Bilirubin,Urine Negative Normal Negative [facility] Comment on above: Order Comment: Name Collection Type:: Clean-Voided Midstream Performed By: #### U HCG, ADDONUAPLUS #### [facility] [address] [place] [address] Glucose Ql (U) Normal Normal Normal [facility] Comment on above: Order Comment: Name Collection Type:: Clean-Voided Midstream Performed By: #### U HCG, ADDONUAPLUS #### [facility] [address] [place] [id number] [place] Hyaline Casts,Urine 0-8 Normal 0-8 [facility] Comment on above: Order Comment: Name Collection Type:: Clean-Voided Midstream Performed By: #### U HCG, ADDONUAPLUS #### [facility] [address] [place] [address] [place] Ketones Ql (U) Negative Normal Negative [facility] Comment on above: Order Comment: Name Collection Type:: Clean-Voided Midstream Performed By: #### U HCG, ADDONUAPLUS #### [facility] [address] [place], [place] [id number] [place] Leukocyte esterase Test strip Ql (U) Negative Normal Negative [facility] Comment on above: Order Comment: Name Collection Type:: Clean-Voided Midstream Performed By: #### U HCG, ADDONUAPLUS #### [facility] [address] [place] [address] [place] Nitrite,Urine Negative Normal Negative [facility] Comment on above: Order Comment: Name Collection Type:: Clean-Voided Midstream Performed By: #### U HCG, ADDONUAPLUS #### [address] Occult Blood,Urine 2+ High Negative [facility] Comment on above: Order Comment: Name Collection Type:: Clean-Voided Midstream Performed By: #### U HCG, ADDONUAPLUS #### [address] Protein,Urine Negative Normal Negative [facility] Comment on above: Order Comment: Name Collection Type:: Clean-Voided Midstream Performed By: #### U HCG, ADDONUAPLUS #### [address] RBC,Urine 5-9 High 0-4 [facility] Comment on above: Order Comment: Name Collection Type:: Clean-Voided Midstream Performed By: #### U HCG, ADDONUAPLUS #### [address] Specificy [place],Urine 1.018 Normal 1.001-1.030 [facility] Comment on above: Order Comment: Name Collection Type:: Clean-Voided Midstream Performed By: #### U HCG, ADDONUAPLUS #### [address] Squamous Epithelial Cell,Urine 0-1 Normal 0-2 [facility] Comment on above: Order Comment: Name Collection Type:: Clean-Voided Midstream Performed By: #### U HCG, ADDONUAPLUS #### [place] [address] [place] Urobilinogen,Urine Normal Normal Normal [facility] Comment on above: Order Comment: Name Collection Type:: Clean-Voided Midstream Performed By: #### U HCG, ADDONUAPLUS #### [place] [address] [place] WBC LM.HPF (Urine sed) [#/Area] 0 /[HPF] Normal 0-4 [facility] Comment on above: Order Comment: Name Collection Type:: Clean-Voided Midstream Performed By: #### U HCG, ADDONUAPLUS #### [address] Erythrocyte distribution wid th [Ratio] by Automated countOrdered By: Elier Jackson on 04-30-2023 Erythrocyte distribution width (RBC) [Ratio] 16.8 % High 11.9-15.3 [facility] Comment on above: Performed By: #### H CGQNT #### [facility] [address] Erythrocytes [#/volume] in B lood by Automated countOrdered By: Elier Jackson on 04-30-2023 RBC (Bld) [#/Vol] 3.68 10*6/uL Normal 3.60-5.00 [facility] Comment on above: Performed By: #### H CGQNT #### [address] Glucose [Mass/volume] in Ser um or PlasmaOrdered By: Elier Jackson on 04-30-2023 Glucose [Mass/Vol] 100 mg/dL Normal 70-100 [facility] Comment on above: ADA recommended refe rence rangeRandom Glucose Reference Range is dependent on time and content of last meal. Glucose of more than 200 mg/dL in a nonstressed, ambulatory subject supports the diagnosis of Diabetes Mellitus. Result Comment: [place] om Glucose Reference Range is dependent on time and content of last meal. Glucose of more than 200 mg/dL in a nonstressed, ambulatory subject supports the diagnosis of Diabetes Mellitus. ADA recommended reference range Performed By: #### H CGQNT #### [facility] [address] [place] [address] HCG ( test) IAjanellei d Ql (U)Ordered By: Elier Jackson on 04-30-2023 HCG ( test) Ql (U) Negative [facility] HCG,Urineon 04-30-2023 Beta HCG ( test) Ql (U) Negative Normal [facility] Comment on above: Order Comment: Name Collection Type:: Clean-Voided Midstream Result Comment: PERF ORMED BY: [place] [address] PATHOLOGIST TELEGRAPH REPEATER TECHNICIAN FARNAZ ZULETA M.D. Performed By: #### U HCG, ADDONUAPLUS #### [address] Hematocrit [Volume Fraction] of Blood by Automated countOrdered By: Elier Jackson on 04-30-2023 Hematocrit (Bld) [Volume fraction] 32.3 % Low 34.0-46.4 [facility] Comment on above: Performed By: #### H CGQNT #### [address] Hemoglobin [Mass/volume] in BloodOrdered By: Elier Jackson on 04-30-2023 Hemoglobin (Bld) [Mass/Vol] 11.2 g/dL Low 11.8-15.4 [facility] Comment on above: Performed By: #### H CGQNT #### [address] Hepatic Panelon 04-30-2023 Albumin [Mass/Vol] 4.3 g/dL Normal 3.5-5.7 [facility] Comment on above: Performed By: #### H CGQNT #### [address] Bilirubin,Indirect 0.3 mg/dL Normal [facility] Comment on above: Performed By: #### H CGQNT #### [address] Bilirubin.indirect [Mass/Vol] 0.10 mg/dL Normal 0.03-0.18 [facility] Comment on above: Performed By: #### H CGQNT #### [address] Ketones Auto test strip (U) [Mass/Vol]Ordered By: Elier Jackson on 04-30-2023 Ketones (U) [Mass/Vol] Negative Negative [facility] - UrinalysisOrder ed By: Elier Jackson on 04-30-2023 Hyaline casts LM Ql (Urine sed) 0-8 [LPF] 0-8 [facility] Leukocytes [#/volume] correc flo for nucleated erythrocytes in Blood by Automated counOrdered By: Elier Jackson on 04-30-2023 WBC corrected for nucl RBC Auto (Bld) [#/Vol] 3.6 10*3/uL 3.8-11.6 [facility] Leukocytes [#/volume] in Blo od by Automated countOrdered By: Elier Jackson on 04-30-2023 WBC (Bld) [#/Vol] 3.6 10*3/uL Low 3.8-11.6 [facility] Comment on above: Performed By: #### H CGQNT #### [place] [address] [place] Lipase [Enzymatic activity/v olume] in Serum or PlasmaOrdered By: Elier Jackson on 04-30-2023 Lipase [Catalytic activity/Vol] 31.0 U/L Normal 11.0-82.0 [facility] Comment on above: Result Comment: PERF ORMED BY: [place] [address] PATHOLOGIST TELEGRAPH REPEATER TECHNICIAN FARNAZ ZULETA M.D. Performed By: #### H CGQNT #### [place] [address] [place] Lymphocytes [#/volume] in Bl ood by Automated countOrdered By: Elier Jackson on 04-30-2023 Lymphocytes (Bld) [#/Vol] 1.6 10*3/uL Normal 1.00-4.8 [facility] Comment on above: Performed By: #### H CGQNT #### [facility] [address] [place], [place] [id number] [place] Lymphocytes/100 leukocytes i n Blood by Automated countOrdered By: Elier Jackson on 04-30-2023 Lymphocytes/100 WBC (Bld) 44.2 % Normal . [facility] Comment on above: Performed By: #### H CGQNT #### [facility] [address] [place] [address] [place] MCH [Entitic mass] by Automa flo countOrdered By: Elier Jackson on 04-30-2023 MCH (RBC) [Entitic mass] 30.4 pg Normal 24.7-34.3 [facility] Comment on above: Performed By: #### H CGQNT #### [facility] [address] [place] [address] MCHC Auto (RBC) [Mass/Vol]Or dered By: Elier Jackson on 04-30-2023 MCHC (RBC) [Mass/Vol] 34.7 g/dL 32.0-35.0 [facility] MCV [Entitic volume] by Auto mated countOrdered By: Elier Jackson on 04-30-2023 MCV (RBC) [Entitic vol] 87.6 fL Normal 80-100 [facility] Comment on above: Performed By: #### H CGQNT #### [facility] [address] [place] [address] Monocyte distribution width [Entitic volume] in Blood by AutomatedOrdered By: Elier Jackson on 04-30-2023 Monocyte distribution width Auto (Bld) [Entitic vol] 16.58 % 0.00-20.00 [facility] Neutrophils [#/volume] in Bl ood by Automated countOrdered By: Elier Jackson on 04-30-2023 Neutrophils (Bld) [#/Vol] 1.7 10*3/uL Low 1.8-7.7 [facility] Comment on above: Performed By: #### H CGQNT #### [facility] [address] [place] [address] Nitrite Test strip Ql (U)Ord ered By: Elier Jackson on 04-30-2023 Nitrite Ql (U) Negative Negative [facility] No Panel InformationOrdered By: Elier Jackson on 04-30-2023 Estimated GFR (CKD-EPI) > 60.0 mL/Min [facility] Creatinine Clearance (Chem 107.67 [facility] Nucleated erythrocytes [Pres ence] in Blood by Automated countOrdered By: Elier Jackson on 04-30-2023 Nucleated RBC Auto Ql (Bld) 0.1 /100{WBC} 0-0.5 [facility] Platelet mean volume [Entiti c volume] in Blood by Automated countOrdered By: Elier Jackson on 04-30-2023 Platelet mean volume (Bld) [Entitic vol] 8.0 fL Normal 6.3-10.7 [facility] Comment on above: Performed By: #### H CGQNT #### [address] Platelets [#/volume] in Bloo d by Automated countOrdered By: Elier Jackson on 04-30-2023 Platelets (Bld) [#/Vol] 415 10*3/uL Normal 150-450 [facility] Comment on above: Performed By: #### H CGQNT #### [address] Potassium [Moles/volume] in Serum or PlasmaOrdered By: Elier Jackson on 04-30-2023 Potassium [Moles/Vol] 3.8 mmol/L Normal 3.5-5.1 [facility] Comment on above: Performed By: #### H CGQNT #### [address] Protein Auto test strip (U) [Mass/Vol]Ordered By: Elier Jackson on 04-30-2023 Protein (U) [Mass/Vol] Negative Negative [facility] Protein [Mass/volume] in Ser um or PlasmaOrdered By: Elier Jackson on 04-30-2023 Protein [Mass/Vol] 7.6 g/dL Normal 6.4-8.9 [facility] Comment on above: Performed By: #### H CGQNT #### [address] Serum globulin measurement b y calculation (mass/volume)Ordered By: Elier Jackson on 04-30-2023 Globulin (S) [Mass/Vol] 3.3 g/dL Normal [facility] Comment on above: Performed By: #### H CGQNT #### [address] Serum or plasma albumin/glob ulin mass ratioOrdered By: Elier Jackson on 04-30-2023 Albumin/Globulin [Mass ratio] 1.3 {ratio} Normal [facility] Comment on above: Performed By: #### H CGQNT #### [facility] [address] [place] [address] Serum or plasma anion gap de terminationOrdered By: Elier Jackson on 04-30-2023 Anion gap [Moles/Vol] 14.7 mmol/L Normal 6.0-15.0 [facility] Comment on above: Performed By: #### H CGQNT #### [address] Serum or plasma non-glucuron idated bilirubin measurement (mass/volume)Ordered By: Elier Jackson on 04-30-2023 Bilirubin.indirect [Mass/Vol] 0.3 mg/dL [facility] Sodium [Moles/volume] in Ser um or PlasmaOrdered By: Elier Jackson on 04-30-2023 Sodium [Moles/Vol] 140 mmol/L Normal 136-145 [facility] Comment on above: Performed By: #### H CGQNT #### [address] Specific gravity Auto test s trip (U) [Rel density]Ordered By: Elier Jackson on 04-30-2023 Specific gravity (U) [Rel density] 1.018 1.001-1.030 [facility] Squamous epithelial cells de tection in urine sediment by light microscopyOrdered By: lEier Jackson on 04-30-2023 Epithelial cells.squamous LM Ql (Urine sed) 0-1 [HPF] 0-2 [facility] US pelvic completeon 023 US pelvic complete [facility] [place] [address] [place] [address] Ultrasound Report Signed Patient: Livia Noyola MR#: [id number] : 1985 Acct:[id number] Age/Sex: 38 / F ADM Date: 04/30/23 Loc: ER Room: Type: [facility] ER Attending Dr: Ordering Provider: Elier Jackson DO Date of Service: 04/30/23 US/US pelvic complete: L pelvic pain ([id number]) US/US transvaginal: LT PELVIC PAIN Copies to: [...] Betancur Jr., D.O.04/30/2023 6:24 PM Dictation Location: [place] [address] Tech: Brooke Hodge Transcribed By: AMBER 04/30/231823 Dictated By: Dennis Betancur Jr, DO 04/30/231820 Signed By: 04/30/231823 Normal [facility] Urea nitrogen [Mass/volume] in Serum or PlasmaOrdered By: Elier Jackson on 04-30-2023 Urea nitrogen [Mass/Vol] 6 mg/dL Low 7-25 [facility] Comment on above: Performed By: #### H CGQNT #### [facility] [address] [place] [address] Urine bacteria detection by automated methodOrdered By: Elier Jackson on 04-30-2023 Bacteria Auto Ql (U) None seen None Seen [facility] Urine clarity by refractomet ry automatedOrdered By: Elier Jackson on 04-30-2023 Clarity Refractometry automated (U) Clear Clear [facility] Urine glucose measurement by automated test strip (mass/volume)Ordered By: Elier Jackson on 04-30-2023 Glucose Auto test strip (U) [Mass/Vol] Normal mg/dL Normal [facility] Urine hemoglobin detection b y automated test stripOrdered By: Elier Jackson on 04-30-2023 Hemoglobin Auto test strip Ql (U) 2+ Negative [facility] Urine leukocyte esterase det ection by automated test stripOrdered By: Elier Jackson on 04-30-2023 Leukocyte esterase Auto test strip Ql (U) Negative Negative [facility] Urine pH measurement by auto mated test stripOrdered By: Elier Jackson on 04-30-2023 pH (U) 5.5 [pH] Normal 5.0-9.0 [facility] Comment on above: Order Comment: Name Collection Type:: Clean-Voided Midstream Performed By: #### U HCG, ADDONUAPLUS #### [address] Urobilinogen Auto test strip (U) [Mass/Vol]Ordered By: Elier Jackson on 04-30-2023 Urobilinogen (U) [Mass/Vol] Normal mg/dL Normal [facility] Auto Diffon 04-24-2023 Basophils/100 WBC (Bld) 0.3 % Normal 0.0-2.0 [facility] Comment on above: Order Comment: Order Added by Discern Expert. Performed By: #### 2 [id number], [id number], [id number], [id number], [id number] #### [facility] [address] [place] [address] Basophils/Leukocytes Auto (Bld) [Pure # fraction] 0.0 E9/L Normal 0.0-0.2 [facility] Comment on above: Order Comment: Order Added by Discern Expert. Performed By: #### 2 [id number], [id number], [id number], [id number], [id number] #### [facility] [address] [place] [address] Eosinophils/100 WBC (Bld) 0.9 % Normal 0.0-8.0 [facility] Comment on above: Order Comment: Order Added by Discern Expert. Performed By: #### 2 [id number], [id number], [id number], [id number], [id number] #### [facility] [address] [place] [address] Eosinophils/Leukocytes Auto (Bld) [Pure # fraction] 0.0 E9/L Normal 0.0-0.5 [facility] Comment on above: Order Comment: Order Added by Discern Expert. Performed By: #### 2 [id number], [id number], [id number], [id number], [id number] #### [facility] [address] [place] [address] Lymphocytes/100 WBC (Bld) 49.9 % Normal 14.0-50.0 [facility] Comment on above: Order Comment: Order Added by Discern Expert. Performed By: #### 2 [id number], [id number], [id number], [id number], [id number] #### [facility] [address] [place] [address] Lymphocytes/Leukocytes Auto (Bld) [Pure # fraction] 2.3 E9/L Normal 1.0-4.0 [facility] Comment on above: Order Comment: Order Added by Discern Expert. Performed By: #### 2 556837, [id number], [id number], [id number], [id number] #### [facility] [address] [place] [address] Monocytes/100 WBC (Bld) 7.1 % Normal 4.0-14.0 [facility] Comment on above: Order Comment: Order Added by Discern Expert. Performed By: #### 2 421565, [id number], [id number], [id number], [id number] #### [facility] [address] [place] [address] Monocytes/Leukocytes Auto (Bld) [Pure # fraction] 0.3 E9/L Normal 0.2-1.0 [facility] Comment on above: Order Comment: Order Added by Discern Expert. Performed By: #### 2 655777, [id number], [id number], [id number], [id number] #### [facility] [address] [place] [address] Neutrophils/100 WBC (Bld) 41.8 % Normal 36.0-75.0 [facility] Comment on above: Order Comment: Order Added by Discern Expert. Performed By: #### 2 188948, 9757630, 8351910, [id number], [id number] #### [facility] [address] [place] [address] Neutrophils/Leukocytes Auto (Bld) [Pure # fraction] 2.0 E9/L Normal 2.0-7.5 [facility] Comment on above: Order Comment: Order Added by Discern Expert. Performed By: #### 2 206415, 8780526, 0034796, 41232675, 68323976 #### [facility] [address] [place] [address] B hCG Qualon 04-24-2023 Beta HCG ( test) Ql Negative Normal [facility] Comment on above: Performed By: #### 2 623394, 7616414, 9884522, 60936056, 83917060 #### [facility] [address] [place] [address] BMPon 04-24-2023 Creatinine [Mass/Vol] 0.7 mg/dL Normal 0.5-1.3 [facility] Comment on above: Performed By: #### 2 121846, 2634566, 5142812, 68183838, 47020541 #### [facility] [address] [place] [address] Urea nitrogen [Mass/Vol] 6 mg/dL Normal 5-21 [facility] Comment on above: Performed By: #### 2 927416, 3164870, 3734463, 64404453, 89268466 #### [facility] [address] [place] [address] Urea nitrogen/Creatinine [Mass ratio] 9 No Units Low 10-20 [facility] Comment on above: Performed By: #### 2 274000, 6227588, 6846639, 81063446, 52795365 #### [facility] [address] [place] [address] Anion gap [Moles/Vol] 14 mmol/L Normal 6-16 [facility] Comment on above: Performed By: #### 2 244337, 8053710, 9664251, 59513239, 87168608 #### [facility] [address] [place] [address] Calcium [Mass/Vol] 9.4 mg/dL Normal 8.9-11.1 [facility] Comment on above: Performed By: #### 2 789018, 3162528, 0355651, 84010142, 67678732 #### [facility] [address] [place] [address] Chloride [Moles/Vol] 105 mmol/L Normal 101-111 [facility] Comment on above: Performed By: #### 2 414879, 5528324, 8509249, 28675339, 27015463 #### [facility] [address] [place] [address] CO2 [Moles/Vol] 23 mmol/L Normal 21-31 [facility] Comment on above: Performed By: #### 2 079175, 5269888, 3613138, 04630689, 02430883 #### [facility] [address] [place] [address] Glucose [Mass/Vol] 95 mg/dL Normal 55-199 [facility] Comment on above: Result Comment: If t his glucose result represents a fasting glucose, interpretation should refer to the following reference range: 55-99 mg/dL Performed By: #### 2 881222, 8238300, 4125837, 41375931, 16016486 #### [facility] [address] [place] [address] Potassium [Moles/Vol] 3.8 mmol/L Normal 3.5-5.3 [facility] Comment on above: Performed By: #### 2 465413, 2042661, 8800414, 78940641, 15484037 #### [facility] [address] [place] [address] Sodium [Moles/Vol] 138 mmol/L Normal 135-145 [facility] Comment on above: Performed By: #### 2 825347, 2951523, 7041475, 86565941, 55332004 #### [facility] [address] [place] [address] CBC w/ Auto Diffon Erythrocyte distribution width (RBC) [Ratio] 15.9 % High 10.9-14.2 [facility] Comment on above: Performed By: #### 2 966746, 9816944, 2162149, 89686967, 48429734 #### [facility] [address] [place] [address] Hematocrit (Bld) [Volume fraction] 33.7 % Low 34.0-46.0 [facility] Comment on above: Performed By: #### 2 212367, 3565696, 2085184, 94335588, 23305099 #### [facility] [address] [place] [address] Hemoglobin (Bld) [Mass/Vol] 11.7 g/dL Low 12.0-16.0 [facility] Comment on above: Performed By: #### 2 602019, 8691974, 9598154, 74625340, 33911703 #### [facility] [address] [place] [address] MCH (RBC) [Entitic mass] 29.7 pg Normal 27.0-34.0 [facility] Comment on above: Performed By: #### 2 189741, 3800092, 3650302, 89402480, 57605647 #### [facility] [address] [place] [address] MCHC (RBC) [Mass/Vol] 34.7 g/dL Normal 31.4-36.0 [facility] Comment on above: Performed By: #### 2 730858, 1783318, 8815991, 09004132, 70153108 #### [facility] [address] [place] [address] MCV (RBC) [Entitic vol] 85.8 fL Normal 80.0-100.0 [facility] Comment on above: Performed By: #### 2 421804, 7888973, 7296994, 99780523, 29376848 #### [facility] [address] [place] [address] Platelet mean volume (Bld) [Entitic vol] 8.2 fL Normal 6.4-10.8 [facility] Comment on above: Performed By: #### 2 571234, 7107974, 3881808, 47936232, 12019066 #### [facility] [address] [place] [address] Platelets (Bld) [#/Vol] 398.0 E9/L Normal 150.0-500.0 [facility] Comment on above: Performed By: #### 2 211999, 9202947, 2319580, 29137438, 08434715 #### [facility] [address] [place] [address] RBC (Bld) [#/Vol] 3.9 E12/L Low 4.3-5.9 [facility] Comment on above: Performed By: #### 2 989089, 9211132, 9328335, 05472499, 74924334 #### [facility] [address] [place] [address] WBC corrected for nucl RBC Auto (Bld) [#/Vol] 4.7 E9/L Normal 4.0-11.0 [facility] Comment on above: Performed By: #### 2 367245, 4916664, 5708251, 53634306, 30689758 #### [facility] [address] [place] [address] CHEMISTRYOrdered By: SYSTEM SYSTEM on 04-24-2023 Anion [...] 115 mL/min/1.73 m2 Normal >=59mL/min/1 .73 m2 [facility] Chem S Comment on above: Interpretive Data: C hronic kidney disease could be indicated at eGFR's of less than 60 mL/min/1.73m2. Kidney failure is indicated at less than 15 mL/min/1.73m2. Glucose [Mass/Vol] 95 mg/dL Normal 55 - 199 mg/dL [facility] Remisol Comment on above: [...] ratio] 9 mg/mg Low 10 - 20 [facility] Remisol CT Abdomen/Pelvis w/ [...] 300 Contrast amount in ml's: [address] [facility] Consent for Treatmenton 04-13 Consent for Treatment [id number] 31 [id number] #1.00TIFF Normal [facility] Discharge Instructionson Discharge Instructions [id number] 110 [id number] #1.00TIFF Normal [facility] ED Clinical Summaryon 2022 ED Clinical Summary [place] [address] ED Clinical Summary Person Information Name: LIVIA NOYOLA/[facility] Age: 38 Years : 1985 Sex: Female Language: Australian PCP: BETTIE MIRELES Marital Status: Visit Id: [...] 04/24/2023 16:04:18 ADDRESS: [address] [place] [id number] PHYS DOC NOTES: MEDICAL INFORMATION: Prescriptions Given: New Medications [id number], [address] [place], [place] [id number], [phone] oxycodone (oxyCODONE 5 mg Cap) 1 Capsules [...] up: With: Address: When: YOUR OBGYN at [facility] In 3 days 04/27/2023 Comments: Seek [...] Abdominal pain, acute, left lower quadrant Normal [facility] ED Note-Physicianon 04-24-20 ED Note-Physician Basic [...] is benign. I did review on clinic [facility]. She has a visit at [facility] for similar symptoms in the middle of [...] for home. 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 Return precautions were discussed. All questions were answered. The patient was discharged home. Assessment/Plan Abdominal pain, acute, left lower quadrant (R10.32: Left lower quadrant pain) Ordered: oxycodone, 5 mg = 1 cap(s), Oral, q6hr, PRN Pain 8-10, X 3 day(s), # 12 cap(s), Refills(s) 0, Pharmacy: [id number], 165.1, cm, 04/24/23 13:32:00 [...] With When Contact Information YOUR OBGYN at [facility] In 3 days 04/27/2023 EST Additional [...] follow-up with (more content not included)... Normal [facility] Comment on above: Result Comment: Elec tronically Signed By: Jignesh Dumont DO.br\Date and Time Signed: 04/24/23 17:56 [facility] ED Patient Education Noteon 04-24-2023 ED Patient [...] these instructions at home: Medicines ? Take fddl-yrr-yzhyhbl and prescription medicines only as told by [...] your condition for any changes. ? Take zeyr-qcu-ixuifjx and prescription medicines only as told by [...] Reviewed: 10/08/2019 Elsevier Patient Education ? [address] [employer] [address] [facility] ED Patient Summaryon 023 ED Patient Summary [place] [id number] Patient Discharge Instructions Person Information Name: LIVIA NOYOLA Age: 38 Years Arrival Date: 04/24/2023 13:12:30 Discharge Diagnosis: Abdominal pain, acute, left lower quadrant Primary Care Physician: BETTIE MIRELES Provider Information Primary Provider: Jignesh Dumont DO Advanced Supersonic Engineer:None The exam and treatment you received in the Emergency Department were for an urgent problem and are not intended as complete care. It is important that you follow up with a doctor, nurse practitioner, or physician?s diploma dental assistant for ongoing care. If your symptoms [...] Instructions: With: Address: When: YOUR OBGYN at [facility] In 3 days 04/27/2023 Comments: Seek [...] opioids can be used to help relieve qiknprkp-qg-rbmcvf pain and are often prescribed following a [...] Talk about (more content not included)... Normal [facility] HEMATOLOGYOrdered By: SYSTEM SYSTEM on 04-24-2023 [...] LM Ql (Urine sed) TRACE Normal Trace [facility] Comment on above: Performed By: #### 2 994688, 2516901, 6108464, 43972628, 75812824 #### [facility] [address] [place] [address] Bilirubin Ql (U) Negative Normal Negative [facility] Comment on above: Performed By: #### 2 549300, 6736143, 8214097, 41014254, 85688162 #### [facility] [address] [place] [address] Clarity (U) CLEAR Normal Clear [facility] Comment on above: Performed By: #### 2 549111, 1120708, 6839381, 51058791, 69460503 #### [facility] [address] [place] [address] Color (U) STRAW Abnormal Yellow [facility] Comment on above: Performed By: #### 2 696901, 2751376, 6513868, 60555718, 85963460 #### [facility] [address] [place] [address] Epithelial cells.squamous LM.HPF (Urine sed) [#/Area] 3-4 Normal 0-2 [facility] Comment on above: Performed By: #### 2 345135, 8955148, 8684498, 03845076, 20967665 #### [facility] [address] [place] [address] Glucose Test strip (U) [Mass/Vol] Negative Normal Negative [facility] Comment on above: Performed By: #### 2 061625, 5705890, 3490047, 27836384, 53591625 #### [facility] [address] [place] [address] Hemoglobin Ql (U) Negative Normal Negative [facility] Comment on above: Performed By: #### 2 708983, 4477814, 2908039, 54565851, 10999753 #### [facility] [address] [place] [address] Ketones (U) [Mass/Vol] Negative Normal Negative [facility] Comment on above: Performed By: #### 2 563886, 5581654, 9704998, 08163578, 04355364 #### [facility] [address] [place] [address] [place].plasma/[place]. RBC (Bld) [Mass ratio] 0-3 Normal 0-3 [facility] Comment on above: Performed By: #### 2 259613, 8978064, 9815330, 15962606, 87662802 #### [facility] [address] [place] [address] Nitrite Ql (U) Negative Normal Negative [facility] Comment on above: Performed By: #### 2 880660, 1945819, 8702846, 31202198, 04351859 #### [facility] [address] [place] [address] pH (U) 7.0 [pH] Invalid Interpretation Code 5.0-9.0 [facility] Comment on above: Performed By: #### 2 067788, 6691639, 2028769, 17628611, 61725670 #### [facility] [address] [place] [address] Protein (U) [Mass/Vol] Negative Normal Negative [facility] Comment on above: Performed By: #### 2 447736, 6716007, 8847716, 94682863, 85159620 #### [facility] [address] [place] [address] Specific gravity (U) [Rel density] <=1.005 Invalid Interpretation Code 1.005-1.030 [facility] Comment on above: Performed By: #### 2 841369, 3277943, 9684571, 65932876, 95296989 #### [facility] [address] [place] [address] Type of Urine collection method Clean Catch Normal [facility] Comment on above: Performed By: #### 2 385490, 6029859, 5060227, 66584260, 08150130 #### [facility] [address] [place] [address] Urobilinogen Qn (U) 0.2 {Ivone'U}/dL Normal 0.0-1.0 [facility] Comment on above: Performed By: #### 2 070450, 2146770, 6218739, 68835220, 25271935 #### [facility] [address] [place] [address] WBC Auto Ql (U) TRACE Abnormal Negative [facility] Comment on above: Performed By: #### 2 845720, 9146572, 3646753, 90645900, 15572245 #### [facility] [address] [place] [address] WBC LM.HPF (Urine sed) [#/Area] 0-5 Normal 0-5 [facility] Comment on above: Performed By: #### 2 159174, 0246211, 5064822, 49106828, 64076664 #### [facility] [address] [place] [address] URINALYSISOrdered By: Chance Guthrie on 04-24-2023 Bacteria [...] PM) Normal Negative [facility] UA Auto SS [place].plasma/[place]. RBC (Bld) [Mass ratio] 0-3 /HPF Normal [...] [facility] UA Auto SS Urobilinogen Qn (U) 0.9271237 {Ivone'U}/dL Normal 0.0 - 1.0 EU/dL [facility] UA Auto SS WBC Auto Ql (U) Trace *ABN* (04/24/23 2:56 PM) Invalid Interpretation Code Negative [facility] UA Auto SS WBC LM.HPF (Urine sed) [#/Area] 0-5 /HPF Normal 0-5/HPF [facility] UA Auto SS eGFRon 04-24-2023 GFR/1.73 sq M.predicted among non-blacks MDRD (S/P/Bld) [Vol rate/Area] 115 mL/min/1.73 m2 Normal >=59 [facility] Comment on above: Order Comment: Order added by Discern Expert. Result Comment: Retail Operations Manager franklin kidney disease could be indicated at eGFR's of less than 60 mL/min/1.73m2. Kidney failure is indicated at less than 15 mL/min/1.73m2. Performed By: #### 2 579915, 7176397, 9600762, 72462478, 24820073 #### [facility] [address] [place] [address] Anisocytosis [Presence] in B lood by Light microscopyOrdered By: Ming Childress on 04-02-2023 Anisocytosis Ql (Bld) Moderate Normal [facility] Comment on above: Performed By: #### U HCG, ADDONUAPLUS #### [facility] [address] [place] [address] [facility] Automated erythrocytes count in urine sediment (number/area)Ordered By: Ming Childress on 04-02-2023 RBC Auto (Urine sed) [#/Area] 20-49 [HPF] 0-4 [facility] Automated leukocytes count i n urine sediment (number/area)Ordered By: Ming Childress on 04-02-2023 WBC Auto (Urine sed) [#/Area] 3-4 [HPF] 0-4 [facility] Automated urine color determ inationOrdered By: Ming Childress on 04-02-2023 Color (U) Yellow Normal Yellow [facility] Comment on above: Order Comment: Name Collection Type:: Clean-Voided Midstream Performed By: #### U HCG, ADDONUAPLUS #### [facility] [address] [place] [address] Basic Metabolic Panelon 10-2 Creatinine Clr Calc Pharmacy 97.72 Normal [facility] Comment on above: Result Comment: PERF ORMED BY: [place] [address] PATHOLOGIST TELEGRAPH REPEATER TECHNICIAN FARNAZ ZULETA M.D. Performed By: #### U HCG, ADDONUAPLUS #### [address] GFR/1.73 sq M.predicted MDRD (S/P/Bld) [Vol rate/Area] mL/min/{1.73_m2} Normal [facility] Comment on above: Performed By: #### U HCG, ADDONUAPLUS #### [address] Basophils Auto (Bld) [#/Vol] Ordered By: Ming Childress on 04-02-2023 Basophils (Bld) [#/Vol] N/A [facility] Basophils/100 WBC Auto (Bld) Ordered By: Ming Childress on 04-02-2023 Basophils/100 WBC (Bld) N/A [facility] Basophils/100 leukocytes in Blood by Manual countOrdered By: Ming Childress on 04-02-2023 Basophils/100 WBC (Bld) 1 % Normal 0-2 [facility] Comment on above: Performed By: #### U HCG, ADDONUAPLUS #### [address] Bilirubin Test strip Ql (U)O rdered By: Ming Childress on 04-02-2023 Bilirubin Ql (U) Negative Negative [facility] Calcium [Mass/volume] in Ser um or PlasmaOrdered By: Ming Childress on 04-02-2023 Calcium [Mass/Vol] 9.2 mg/dL Normal 8.6-10.3 [facility] Comment on above: Performed By: #### U HCG, ADDONUAPLUS #### [address] Carbon dioxide, total [Moles /volume] in Serum or PlasmaOrdered By: Ming Childress on 04-02-2023 CO2 [Moles/Vol] 18.5 mmol/L Low 21.0-31.0 [facility] Comment on above: Performed By: #### U HCG, ADDONUAPLUS #### [facility] [address] Chloride [Moles/volume] in S binu or PlasmaOrdered By: Mnig Childress on 04-02-2023 Chloride [Moles/Vol] 108 mmol/L High 98-107 [facility] Comment on above: Performed By: #### U HCG, ADDONUAPLUS #### [address] Creatinine [Mass/volume] in Serum or PlasmaOrdered By: Ming Wagnery on 04-02-2023 Creatinine [Mass/Vol] 0.84 mg/dL Normal 0.60-1.20 [facility] Comment on above: Performed By: #### U HCG, ADDONUAPLUS #### [place] [address] [place] Diff and CBCon 04-02-2023 Hypochromasia Slight Normal [facility] Comment on above: Performed By: #### U HCG, ADDONUAPLUS #### [address] Mean Corpuscular HGB Conc 31.8 g/dL Low 32.0-35.0 [facility] Comment on above: Performed By: #### U HCG, ADDONUAPLUS #### [facility] [address] [place] [address] [place] Monocytes/100 WBC (Bld) 18.83 % Normal 0.00-20.00 [facility] Comment on above: Performed By: #### U HCG, ADDONUAPLUS #### [place] [address] [place] Nucleated Red Blood Cell 3 /100{WBC} High 0-0 [facility] Comment on above: Performed By: #### U HCG, ADDONUAPLUS #### [address] Ovalocytes Slight Normal [facility] Comment on above: Performed By: #### U HCG, ADDONUAPLUS #### [address] Platelet Estimate Increased Normal Normal [facility] Comment on above: Performed By: #### U HCG, ADDONUAPLUS #### [address] Platelet Morphology Normal Normal Normal [facility] Comment on above: Result Comment: PERF ORMED BY: [place] [address] PATHOLOGIST TELEGRAPH REPEATER TECHNICIAN FARNAZ ZULETA M.D. Performed By: #### U HCG, ADDONUAPLUS #### [address] Poikilocytosis Slight Normal [facility] Comment on above: Performed By: #### U HCG, ADDONUAPLUS #### [address] Polychromasia Moderate Normal [facility] Comment on above: Performed By: #### U HCG, ADDONUAPLUS #### [address] Smudge Cells Slight Normal [facility] Comment on above: Performed By: #### U HCG, ADDONUAPLUS #### [address] Toxic Vacuolation Slight Normal [facility] Comment on above: Performed By: #### U HCG, ADDONUAPLUS #### [place] [address] [place] Dipstick and Microscopicon 1 Appearance (U) Clear Normal Clear [facility] Comment on above: Order Comment: Name Collection Type:: Clean-Voided Midstream Performed By: #### U HCG, ADDONUAPLUS #### [address] Bacteria,Urine None Seen Normal None Seen [facility] Comment on above: Order Comment: Name Collection Type:: Clean-Voided Midstream Performed By: #### U HCG, ADDONUAPLUS #### [facility] [address] [place] [address] [place] Bilirubin,Urine Negative Normal Negative [facility] Comment on above: Order Comment: Name Collection Type:: Clean-Voided Midstream Performed By: #### U HCG, ADDONUAPLUS #### [facility] [address] [place] [address] [place] Glucose Ql (U) Normal Normal Normal [facility] Comment on above: Order Comment: Name Collection Type:: Clean-Voided Midstream Performed By: #### U HCG, ADDONUAPLUS #### [place] [address] [place] Hyaline Casts,Urine 0-8 Normal 0-8 [facility] Comment on above: Order Comment: Name Collection Type:: Clean-Voided Midstream Performed By: #### U HCG, ADDONUAPLUS #### [place] [address] [place] Ketones Ql (U) Trace High Negative [facility] Comment on above: Order Comment: Name Collection Type:: Clean-Voided Midstream Performed By: #### U HCG, ADDONUAPLUS #### [place] [id number] [place] Leukocyte esterase Test strip Ql (U) 1+ High Negative [facility] Comment on above: Order Comment: Name Collection Type:: Clean-Voided Midstream Performed By: #### U HCG, ADDONUAPLUS #### [place] [address] [place] Nitrite,Urine Negative Normal Negative [facility] Comment on above: Order Comment: Name Collection Type:: Clean-Voided Midstream Performed By: #### U HCG, ADDONUAPLUS #### [place] [id number] [place] Occult Blood,Urine 3+ High Negative [facility] Comment on above: Order Comment: Name Collection Type:: Clean-Voided Midstream Performed By: #### U HCG, ADDONUAPLUS #### [place] [address] [place] Protein,Urine Negative Normal Negative [facility] Comment on above: Order Comment: Name Collection Type:: Clean-Voided Midstream Performed By: #### U HCG, ADDONUAPLUS #### [place] [address] [place] RBC,Urine 20-49 High 0-4 [facility] Comment on above: Order Comment: Name Collection Type:: Clean-Voided Midstream Performed By: #### U HCG, ADDONUAPLUS #### [place] [address] [place] Specificy [place],Urine 1.018 Normal 1.001-1.030 [facility] Comment on above: Order Comment: Name Collection Type:: Clean-Voided Midstream Performed By: #### U HCG, ADDONUAPLUS #### [place] [address] [place] Squamous Epithelial Cell,Urine 3-4 High 0-2 [facility] Comment on above: Order Comment: Name Collection Type:: Clean-Voided Midstream Performed By: #### U HCG, ADDONUAPLUS #### [place] [address] [place] Urobilinogen,Urine Normal Normal Normal [facility] Comment on above: Order Comment: Name Collection Type:: Clean-Voided Midstream Performed By: #### U HCG, ADDONUAPLUS #### [place] [address] [place] WBC,Urine 3-4 Normal 0-4 [facility] Comment on above: Order Comment: Name Collection Type:: Clean-Voided Midstream Performed By: #### U HCG, ADDONUAPLUS #### [place] [address] [place] Eosinophils Auto (Bld) [#/Vo l]Ordered By: Ming Childress on 04-02-2023 Eosinophils (Bld) [#/Vol] N/A [facility] Eosinophils/100 WBC Auto (Bl d)Ordered By: Ming Wagnery on 04-02-2023 Eosinophils/100 WBC (Bld) N/A [facility] Eosinophils/100 leukocytes i n Blood by Manual countOrdered By: Ming Childress on 04-02-2023 Eosinophils/100 WBC (Bld) 4 % High 1-3 [facility] Comment on above: Performed By: #### U HCG, ADDONUAPLUS #### [address] Erythrocyte distribution wid th [Ratio] by Automated countOrdered By: Ming Arangoarthy on 04-02-2023 Erythrocyte distribution width (RBC) [Ratio] 15.2 % Normal 11.9-15.3 [facility] Comment on above: Performed By: #### U HCG, ADDONUAPLUS #### [address] Erythrocytes [#/volume] in B lood by Automated countOrdered By: Ming Arangoarthy on 04-02-2023 RBC (Bld) [#/Vol] 4.67 10*6/uL Normal 3.60-5.00 [facility] Comment on above: Performed By: #### U HCG, ADDONUAPLUS #### [address] Glucose [Mass/volume] in Ser um or PlasmaOrdered By: Ming Arangoarthy on 04-02-2023 Glucose [Mass/Vol] 94 mg/dL Normal 70-100 [facility] Comment on above: ADA recommended refe rence rangeRandom Glucose Reference Range is dependent on time and content of last meal. Glucose of more than 200 mg/dL in a nonstressed, ambulatory subject supports the diagnosis of Diabetes Mellitus. Result Comment: [place] om Glucose Reference Range is dependent on time and content of last meal. Glucose of more than 200 mg/dL in a nonstressed, ambulatory subject supports the diagnosis of Diabetes Mellitus. ADA recommended reference range Performed By: #### U HCG, ADDONUAPLUS #### [place] [address] [place] HCG ( test) Nannettei d Ql (U)Ordered By: Ming Childress on 04-02-2023 HCG ( test) Ql (U) Negative [facility] HCG,Urineon 04-02-2023 Beta HCG ( test) Ql (U) Negative Normal [facility] Comment on above: Order Comment: Name Collection Type:: Clean-Voided Midstream Result Comment: PERF ORMED BY: [place] [address] PATHOLOGIST TELEGRAPH REPEATER TECHNICIAN FARNAZ ZULETA M.D. Performed By: #### U HCG, ADDONUAPLUS #### [facility] [address] [place] [address] Hematocrit [Volume Fraction] of Blood by Automated countOrdered By: Ming Childress on 04-02-2023 Hematocrit (Bld) [Volume fraction] 36.1 % Normal 34.0-46.4 [facility] Comment on above: Performed By: #### U HCG, ADDONUAPLUS #### [facility] [address] [place] [address] Hemoglobin [Mass/volume] in BloodOrdered By: Ming Childress on 04-02-2023 Hemoglobin (Bld) [Mass/Vol] 11.5 g/dL Low 11.8-15.4 [facility] Comment on above: Performed By: #### U HCG, ADDONUAPLUS #### [facility] [address] [place] [address] [place] Hypochromia LM Ql (Bld)Order ed By: Ming Childress on 04-02-2023 Hypochromia Ql (Bld) Slight [facility] Ketones Auto test strip (U) [Mass/Vol]Ordered By: Ming Childress on 04-02-2023 Ketones (U) [Mass/Vol] Trace Negative [facility] - UrinalysisOrder ed By: iMng Childress on 04-02-2023 Hyaline casts LM Ql (Urine sed) 0-8 [LPF] 0-8 [facility] Leukocytes [#/volume] correc flo for nucleated erythrocytes in Blood by Automated counOrdered By: Ming Childress on 04-02-2023 WBC corrected for nucl RBC Auto (Bld) [#/Vol] 6.8 10*3/uL 3.8-11.6 [facility] Leukocytes [#/volume] in Blo od by Automated countOrdered By: Ming Childress on 04-02-2023 WBC (Bld) [#/Vol] 6.8 10*3/uL Normal 3.8-11.6 [facility] Comment on above: Performed By: #### U HCG, ADDONUAPLUS #### [facility] [address] [place] [address] Lymphocytes Auto (Bld) [#/Vo l]Ordered By: Ming Childress on 04-02-2023 Lymphocytes (Bld) [#/Vol] N/A [facility] Lymphocytes/100 WBC Auto (Bl d)Ordered By: Ming Childress on 04-02-2023 Lymphocytes/100 WBC (Bld) N/A [facility] Lymphocytes/100 leukocytes i n Blood by Manual countOrdered By: Ming Childress on 04-02-2023 Lymphocytes/100 WBC (Bld) 43 % High 18-42 [facility] Comment on above: Performed By: #### U HCG, ADDONUAPLUS #### [facility] [address] [place] [address] MCH [Entitic mass] by Automa flo countOrdered By: Ming Childress on 04-02-2023 MCH (RBC) [Entitic mass] 24.5 pg Low 24.7-34.3 [facility] Comment on above: Performed By: #### U HCG, ADDONUAPLUS #### [facility] [address] [place] [address] MCHC Auto (RBC) [Mass/Vol]Or dered By: Ming Childress on 04-02-2023 MCHC (RBC) [Mass/Vol] 31.8 g/dL 32.0-35.0 [facility] MCV [Entitic volume] by Auto mated countOrdered By: Ming Childress on 04-02-2023 MCV (RBC) [Entitic vol] 77.3 fL Low 80-100 [facility] Comment on above: Performed By: #### U HCG, ADDONUAPLUS #### [facility] [address] [place] [address] Manual blood segmented neutr ophils/100 leukocytesOrdered By: Ming Childress on 04-02-2023 Segmented neutrophils/100 WBC (Bld) 47 % Low 50-70 [facility] Comment on above: Performed By: #### U HCG, ADDONUAPLUS #### [facility] [address] [place] [address] Monocyte distribution width [Entitic volume] in Blood by AutomatedOrdered By: Ming Childress on 04-02-2023 Monocyte distribution width Auto (Bld) [Entitic vol] 18.83 % 0.00-20.00 [facility] Monocytes Auto (Bld) [#/Vol] Ordered By: Ming Childress on 04-02-2023 Monocytes (Bld) [#/Vol] N/A [facility] Monocytes/100 WBC Auto (Bld) Ordered By: Ming Childress on 04-02-2023 Monocytes/100 WBC (Bld) N/A [facility] Monocytes/100 leukocytes in Blood by Manual countOrdered By: Ming Childress on 04-02-2023 Monocytes/100 WBC (Bld) 5 % Normal 2-11 [facility] Comment on above: Performed By: #### U HCG, ADDONUAPLUS #### [facility] [address] [place] [address] [place] Neutrophils Auto (Bld) [#/Vo l]Ordered By: Ming Childress on 04-02-2023 Neutrophils (Bld) [#/Vol] N/A [facility] Neutrophils/100 WBC Auto (Bl d)Ordered By: Ming Childress on 04-02-2023 Neutrophils/100 WBC (Bld) N/A [facility] Nitrite Test strip Ql (U)Ord ered By: Ming Childress on 04-02-2023 Nitrite Ql (U) Negative Negative [facility] No Panel InformationOrdered By: Ming Childress on 04-02-2023 Estimated GFR (CKD-EPI) > 60.0 mL/Min [facility] Creatinine Clearance (Chem 97.72 [facility] Nucleated RBC/100 WBC Manual cnt (Bld) [Ratio]Ordered By: Ming Childress on 04-02-2023 Nucleated RBC/100 WBC (Bld) [Ratio] 3 /100{WBC} 0-0 [facility] Nucleated erythrocytes [Pres ence] in Blood by Automated countOrdered By: Ming Childress on 04-02-2023 Nucleated RBC Auto Ql (Bld) N/A [facility] Ovalocyte detectionOrdered B y: Ming Childress on 04-02-2023 Ovalocytes LM Ql (Bld) Slight [facility] Platelet adequacy [Presence] in Blood by Light microscopyOrdered By: Ming Childress on 04-02-2023 Platelets LM Ql (Bld) Increased Normal [facility] Platelet mean volume [Entiti c volume] in Blood by Automated countOrdered By: Ming Childress on 04-02-2023 Platelet mean volume (Bld) [Entitic vol] 8.1 fL Normal 6.3-10.7 [facility] Comment on above: Result Comment: PERF ORMED BY: [place] [address] PATHOLOGIST TELEGRAPH REPEATER TECHNICIAN FARNAZ ZULETA M.D. Performed By: #### U HCG, ADDONUAPLUS #### [facility] [address] Platelet morphology finding [Identifier] in BloodOrdered By: Ming Childress on 04-02-2023 Platelet morphology finding Nom (Bld) Normal Normal [facility] Platelets [#/volume] in Bloo d by Automated countOrdered By: Ming Childress on 04-02-2023 Platelets (Bld) [#/Vol] 492 10*3/uL High 150-450 [facility] Comment on above: Performed By: #### U HCG, ADDONUAPLUS #### [facility] [address] [place] [address] [place] Poikilocytosis [Presence] in Blood by Light microscopyOrdered By: Ming Childress on 04-02-2023 Poikilocytosis LM Ql (Bld) Slight [facility] Polychromasia [Presence] in Blood by Light microscopyOrdered By: Ming Childress on 04-02-2023 Polychromasia LM Ql (Bld) Moderate [facility] Potassium [Moles/volume] in Serum or PlasmaOrdered By: Ming Childress on 04-02-2023 Potassium [Moles/Vol] 3.7 mmol/L Normal 3.5-5.1 [facility] Comment on above: Performed By: #### U HCG, ADDONUAPLUS #### [address] Protein Auto test strip (U) [Mass/Vol]Ordered By: Ming Childress on 04-02-2023 Protein (U) [Mass/Vol] Negative Negative [facility] RBC morphologyOrdered By: Carmen Childress on 04-02-2023 RBC morphology finding Nom (Bld) N/A [facility] Serum or plasma anion gap de terminationOrdered By: Ming Childress on 04-02-2023 Anion gap [Moles/Vol] 14.2 mmol/L Normal 6.0-15.0 [facility] Comment on above: Performed By: #### U HCG, ADDONUAPLUS #### [address] Smudge cell detectionOrdered By: Ming Childress on 04-02-2023 Smudge cells LM Ql (Bld) Slight [facility] Sodium [Moles/volume] in Ser um or PlasmaOrdered By: Ming Childress on 04-02-2023 Sodium [Moles/Vol] 137 mmol/L Normal 136-145 [facility] Comment on above: Performed By: #### U HCG, ADDONUAPLUS #### [address] Specific gravity Auto test s trip (U) [Rel density]Ordered By: Ming Childress on 04-02-2023 Specific gravity (U) [Rel density] 1.018 1.001-1.030 [facility] Squamous epithelial cells de tection in urine sediment by light microscopyOrdered By: Ming Childress on 04-02-2023 Epithelial cells.squamous LM Ql (Urine sed) 3-4 [HPF] 0-2 [facility] Toxic leukocyte vacuolation detectionOrdered By: Ming Childress on 04-02-2023 Leukocyte toxic vacuoles LM Ql (Bld) Slight [facility] Urea nitrogen [Mass/volume] in Serum or PlasmaOrdered By: Ming Childress on 04-02-2023 Urea nitrogen [Mass/Vol] 9 mg/dL Normal 7-25 [facility] Comment on above: Performed By: #### U HCG, ADDONUAPLUS #### [facility] [address] [place] [address] Urine bacteria detection by automated methodOrdered By: Ming Childress on 04-02-2023 Bacteria Auto Ql (U) None seen None Seen [facility] Urine clarity by refractomet ry automatedOrdered By: Ming Childress on 04-02-2023 Clarity Refractometry automated (U) Clear Clear [facility] Urine glucose measurement by automated test strip (mass/volume)Ordered By: Ming Childress on 04-02-2023 Glucose Auto test strip (U) [Mass/Vol] Normal mg/dL Normal [facility] Urine hemoglobin detection b y automated test stripOrdered By: Ming Childress on 04-02-2023 Hemoglobin Auto test strip Ql (U) 3+ Negative [facility] Urine leukocyte esterase det ection by automated test stripOrdered By: Ming Childress on 04-02-2023 Leukocyte esterase Auto test strip Ql (U) 1+ Negative [facility] Urine pH measurement by auto mated test stripOrdered By: Ming Childress on 04-02-2023 pH (U) 6.0 [pH] Normal 5.0-9.0 [facility] Comment on above: Order Comment: Name Collection Type:: Clean-Voided Midstream Performed By: #### U HCG, ADDONUAPLUS #### [facility] [address] [place] [address] [place] Urobilinogen Auto test strip (U) [Mass/Vol]Ordered By: Ming Childress on 04-02-2023 Urobilinogen (U) [Mass/Vol] Normal mg/dL Normal [facility] Alanine aminotransferase [En zymatic activity/volume] in Serum or PlasmaOrdered By: Ming Childress on 03-29-2023 ALT [Catalytic activity/Vol] 14 U/L Normal 7-52 [facility] Comment on above: Performed By: #### B MP, LIPASE, HEPATIC #### [place] [address] [place] Albumin [Mass/volume] in Ser um or Plasma by Bromocresol green (BCG) dye binding methoOrdered By: Ming Childress on 03-29-2023 Albumin BCG dye [Mass/Vol] 4.0 g/dL 3.5-5.7 [facility] Alkaline phosphatase [Enzyma tic activity/volume] in Serum or PlasmaOrdered By: Ming Childress on 03-29-2023 ALP [Catalytic activity/Vol] 61 U/L Normal 34-104 [facility] Comment on above: Performed By: #### B MP, LIPASE, HEPATIC #### [address] Aspartate aminotransferase [ Enzymatic activity/volume] in Serum or PlasmaOrdered By: Ming Childress on 03-29-2023 AST [Catalytic activity/Vol] 19 U/L Normal 13-39 [facility] Comment on above: Performed By: #### B MP, LIPASE, HEPATIC #### [address] Automated basophil %Ordered By: Ming Childress on 03-29-2023 Basophils/100 WBC (Bld) 1.3 % Normal . [facility] Comment on above: Performed By: #### U HCG, ADDONUAPLUS #### [address] Automated basophil countOrde red By: Ming Childress on 03-29-2023 Basophils (Bld) [#/Vol] 0.1 10*3/uL Normal 0.0-0.2 [facility] Comment on above: Result Comment: PERF ORMED BY: [place] [address] PATHOLOGIST TELEGRAPH REPEATER TECHNICIAN FARNAZ ZULETA M.D. Performed By: #### U HCG, ADDONUAPLUS #### [address] Automated blood monocyte cou ntOrdered By: Ming Childress on 03-29-2023 Monocytes (Bld) [#/Vol] 0.6 10*3/uL Normal 0.0-0.8 [facility] Comment on above: Performed By: #### U HCG, ADDONUAPLUS #### [address] Automated eosinophil %Ordere d By: Ming Childress on 03-29-2023 Eosinophils/100 WBC (Bld) 1.8 % Normal . [facility] Comment on above: Performed By: #### U HCG, ADDONUAPLUS #### [address] Automated eosinophil countOr dered By: Ming Childress on 03-29-2023 Eosinophils (Bld) [#/Vol] 0.1 10*3/uL Normal 0.0-0.45 [facility] Comment on above: Performed By: #### U HCG, ADDONUAPLUS #### [address] Automated monocyte %Ordered By: Ming Childress on 03-29-2023 Monocytes/100 WBC (Bld) 7.3 % Normal . [facility] Comment on above: Performed By: #### U HCG, ADDONUAPLUS #### [address] Automated neutrophil %Ordere d By: Ming Childress on 03-29-2023 Neutrophils/100 WBC (Bld) 46.8 % Normal . [facility] Comment on above: Performed By: #### U HCG, ADDONUAPLUS #### [address] Automated urine color determ inationOrdered By: Ming Childress on 03-29-2023 Color (U) Yellow Normal Yellow [facility] Comment on above: Order Comment: Name Collection Type:: Clean-Voided Midstream Performed By: #### H CGQNT #### [facility] [address] Basic Metabolic Panelon 03-13 Creatinine Clr Calc Pharmacy 134.47 Normal [facility] Comment on above: Performed By: #### B MP, LIPASE, HEPATIC #### [facility] [address] GFR/1.73 sq M.predicted MDRD (S/P/Bld) [Vol rate/Area] mL/min/{1.73_m2} Normal [facility] Comment on above: Performed By: #### B MP, LIPASE, HEPATIC #### [facility] [address] Bilirubin Test strip Ql (U)O rdered By: Ming Childress on 03-29-2023 Bilirubin Ql (U) Negative Negative [facility] Bilirubin.direct [Mass/volum e] in Serum or PlasmaOrdered By: Ming Childress on 03-29-2023 Bilirubin.direct [Mass/Vol] 0.10 mg/dL 0.03-0.18 [facility] Bilirubin.total [Mass/volume ] in Serum or PlasmaOrdered By: Ming Childress on 03-29-2023 Bilirubin [Mass/Vol] 0.3 mg/dL Normal 0.3-1.0 [facility] Comment on above: Performed By: #### B MP, LIPASE, HEPATIC #### [facility] [address] abdomen pelvis w conon CT abdomen pelvis w con [facility] [place] [address] [place] [address] CT Scan Report Signed Patient: Livia Noyola MR#: [id number] : 1985 Acct:[id number] Age/Sex: 38 / F ADM Date: 03/29/23 Loc: 3T Room: 9U6641-2 Type: ADM IN Attending Dr: Christi Aquino [...] Alesha Tejada M.D.03/29/2023 7:14 AM Dictation Location: [place] [address] Transcribed By: [facility] 03/29/23713 Dictated By: Alesha Tejada MD 03/29/23709 Signed By: 03/29/23713 Normal [facility] Calcium [Mass/volume] in Ser um or PlasmaOrdered By: Ming Childress on 03-29-2023 Calcium [Mass/Vol] 8.9 mg/dL Normal 8.6-10.3 [facility] Comment on above: Performed By: #### B MP, LIPASE, HEPATIC #### [address] Carbon dioxide, total [Moles /volume] in Serum or PlasmaOrdered By: Ming Childress on 03-29-2023 CO2 [Moles/Vol] 22.2 mmol/L Normal 21.0-31.0 [facility] Comment on above: Performed By: #### B MP, LIPASE, HEPATIC #### [address] Chloride [Moles/volume] in S binu or PlasmaOrdered By: Ming Childress on 03-29-2023 Chloride [Moles/Vol] 107 mmol/L Normal 98-107 [facility] Comment on above: Performed By: #### B MP, LIPASE, HEPATIC #### [address] Complete Blood Count Auto Di ffon 03-29-2023 Mean Corpuscular HGB Conc 32.0 g/dL Normal 32.0-35.0 [facility] Comment on above: Performed By: #### U HCG, ADDONUAPLUS #### [address] NRBC% 0.1 /100{WBC} Normal 0-0.5 [facility] Comment on above: Performed By: #### U HCG, ADDONUAPLUS #### [address] Creatinine [Mass/volume] in Serum or PlasmaOrdered By: Ming Childress on 03-29-2023 Creatinine [Mass/Vol] 0.63 mg/dL Normal 0.60-1.20 [facility] Comment on above: Performed By: #### B MP, LIPASE, HEPATIC #### [address] Erythrocyte distribution wid th [Ratio] by Automated countOrdered By: Ming Childress on 03-29-2023 Erythrocyte distribution width (RBC) [Ratio] 15.2 % Normal 11.9-15.3 [facility] Comment on above: Performed By: #### U HCG, ADDONUAPLUS #### [facility] [address] Erythrocytes [#/volume] in B lood by Automated countOrdered By: Ming Childress on 03-29-2023 RBC (Bld) [#/Vol] 4.34 10*6/uL Normal 3.60-5.00 [facility] Comment on above: Performed By: #### U HCG, ADDONUAPLUS #### [facility] [address] [place] [address] [place] Glucose [Mass/volume] in Ser um or PlasmaOrdered By: Ming Childress on 03-29-2023 Glucose [Mass/Vol] 90 mg/dL Normal 70-100 [facility] Comment on above: ADA recommended refe rence rangeRandom Glucose Reference Range is dependent on time and content of last meal. Glucose of more than 200 mg/dL in a nonstressed, ambulatory subject supports the diagnosis of Diabetes Mellitus. Result Comment: [place] Glucose Reference Range is dependent on time and content of last meal. Glucose of more than 200 mg/dL in a nonstressed, ambulatory subject supports the diagnosis of Diabetes Mellitus. ADA recommended reference range Performed By: #### B MP, LIPASE, HEPATIC #### [address] HCG ( test) IA.rapi d Ql (U)Ordered By: Ming Childress on 03-29-2023 HCG ( test) Ql (U) Negative [facility] HCG,Urineon 03-29-2023 Beta HCG ( test) Ql (U) Negative Normal [facility] Comment on above: Order Comment: Name Collection Type:: Clean-Voided Midstream Result Comment: PERF ORMED BY: [place] [address] PATHOLOGIST TELEGRAPH REPEATER TECHNICIAN FARNAZ ZULETA M.D. Performed By: #### H CGQNT #### [address] Hematocrit [Volume Fraction] of Blood by Automated countOrdered By: Ming Childress on 03-29-2023 Hematocrit (Bld) [Volume fraction] 32.6 % Low 34.0-46.4 [facility] Comment on above: Performed By: #### U HCG, ADDONUAPLUS #### [address] Hemoglobin [Mass/volume] in BloodOrdered By: Ming Childress on 03-29-2023 Hemoglobin (Bld) [Mass/Vol] 10.4 g/dL Low 11.8-15.4 [facility] Comment on above: Performed By: #### U HCG, ADDONUAPLUS #### [address] Hepatic Panelon 03-29-2023 Albumin [Mass/Vol] 4.0 g/dL Normal 3.5-5.7 [facility] Comment on above: Performed By: #### B MP, LIPASE, HEPATIC #### [address] Bilirubin,Indirect 0.2 mg/dL Normal [facility] Comment on above: Performed By: #### B MP, LIPASE, HEPATIC #### [address] Bilirubin.indirect [Mass/Vol] 0.10 mg/dL Normal 0.03-0.18 [facility] Comment on above: Performed By: #### B MP, LIPASE, HEPATIC #### [address] Ketones Auto test strip (U) [Mass/Vol]Ordered By: Ming Childress on 03-29-2023 Ketones (U) [Mass/Vol] Negative Negative [facility] Lactate [Moles/volume] in Se rum or PlasmaOrdered By: Megan Muniz on 03-29-2023 Lactate [Moles/Vol] 0.8 mmol/L Normal 0.5-2.2 [facility] Comment on above: Result Comment: PERF ORMED BY: [address] [place] [address] PATHOLOGIST TELEGRAPH REPEATER TECHNICIAN FARNAZ ZULETA M.D. Performed By: #### H CGQNT #### [address] Leukocytes [#/volume] correc flo for nucleated erythrocytes in Blood by Automated counOrdered By: Ming Childress on 03-29-2023 WBC corrected for nucl RBC Auto (Bld) [#/Vol] 7.5 10*3/uL 3.8-11.6 [facility] Leukocytes [#/volume] in Blo od by Automated countOrdered By: Ming Childress on 03-29-2023 WBC (Bld) [#/Vol] 7.5 10*3/uL Normal 3.8-11.6 [facility] Comment on above: Performed By: #### U HCG, ADDONUAPLUS #### [address] Lipase [Enzymatic activity/v olume] in Serum or PlasmaOrdered By: Ming Childress on 03-29-2023 Lipase [Catalytic activity/Vol] 30.0 U/L Normal 11.0-82.0 [facility] Comment on above: Result Comment: PERF ORMED BY: [place] [address] PATHOLOGIST TELEGRAPH REPEATER TECHNICIAN FARNAZ ZULETA M.D. Performed By: #### B MP, LIPASE, HEPATIC #### [place] [address] [place] Lymphocytes [#/volume] in Bl ood by Automated countOrdered By: Ming Childress on 03-29-2023 Lymphocytes (Bld) [#/Vol] 3.2 10*3/uL Normal 1.00-4.8 [facility] Comment on above: Performed By: #### U HCG, ADDONUAPLUS #### [place] [address] [place] Lymphocytes/100 leukocytes i n Blood by Automated countOrdered By: Ming Childress on 03-29-2023 Lymphocytes/100 WBC (Bld) 42.8 % Normal . [facility] Comment on above: Performed By: #### U HCG, ADDONUAPLUS #### [facility] [address] [place] [address] MCH [Entitic mass] by Automa flo countOrdered By: Ming Childress on 03-29-2023 MCH (RBC) [Entitic mass] 24.1 pg Low 24.7-34.3 [facility] Comment on above: Performed By: #### U HCG, ADDONUAPLUS #### [facility] [address] [place] [address] MCHC Auto (RBC) [Mass/Vol]Or dered By: Ming Childress on 03-29-2023 MCHC (RBC) [Mass/Vol] 32.0 g/dL 32.0-35.0 [facility] MCV [Entitic volume] by Auto mated countOrdered By: Ming Childress on 03-29-2023 MCV (RBC) [Entitic vol] 75.2 fL Low 80-100 [facility] Comment on above: Performed By: #### U HCG, ADDONUAPLUS #### [facility] [address] [place] [address] Neutrophils [#/volume] in Bl ood by Automated countOrdered By: Ming Childress on 03-29-2023 Neutrophils (Bld) [#/Vol] 3.5 10*3/uL Normal 1.8-7.7 [facility] Comment on above: Performed By: #### U HCG, ADDONUAPLUS #### [facility] [address] [place] [address] Nitrite Test strip Ql (U)Ord ered By: Ming Childress on 03-29-2023 Nitrite Ql (U) Negative Negative [facility] No Panel InformationOrdered By: Ming Childress on 03-29-2023 Estimated GFR (CKD-EPI) > 60.0 mL/Min [facility] Creatinine Clearance (Chem 134.47 [facility] Nucleated erythrocytes [Pres ence] in Blood by Automated countOrdered By: Ming Childress on 03-29-2023 Nucleated RBC Auto Ql (Bld) 0.1 /100{WBC} 0-0.5 [facility] Platelet mean volume [Entiti c volume] in Blood by Automated countOrdered By: Ming Arangoarthy on 03-29-2023 Platelet mean volume (Bld) [Entitic vol] 8.0 fL Normal 6.3-10.7 [facility] Comment on above: Performed By: #### U HCG, ADDONUAPLUS #### [facility] [address] [place] [address] Platelets [#/volume] in Bloo d by Automated countOrdered By: Ming Childress on 03-29-2023 Platelets (Bld) [#/Vol] 396 10*3/uL Normal 150-450 [facility] Comment on above: Performed By: #### U HCG, ADDONUAPLUS #### [address] Potassium [Moles/volume] in Serum or PlasmaOrdered By: Ming Childress on 03-29-2023 Potassium [Moles/Vol] 3.6 mmol/L Normal 3.5-5.1 [facility] Comment on above: Performed By: #### B MP, LIPASE, HEPATIC #### [address] Protein Auto test strip (U) [Mass/Vol]Ordered By: Ming Childress on 03-29-2023 Protein (U) [Mass/Vol] Negative Negative [facility] Protein [Mass/volume] in Ser um or PlasmaOrdered By: Ming Childress on 03-29-2023 Protein [Mass/Vol] 6.8 g/dL Normal 6.4-8.9 [facility] Comment on above: Performed By: #### B MP, LIPASE, HEPATIC #### [address] Serum globulin measurement b y calculation (mass/volume)Ordered By: Ming Childress on 03-29-2023 Globulin (S) [Mass/Vol] 2.8 g/dL Normal [facility] Comment on above: Performed By: #### B MP, LIPASE, HEPATIC #### [address] Serum or plasma albumin/glob ulin mass ratioOrdered By: Ming Childress on 03-29-2023 Albumin/Globulin [Mass ratio] 1.4 {ratio} Normal [facility] Comment on above: Performed By: #### B MP, LIPASE, HEPATIC #### [address] Serum or plasma anion gap de terminationOrdered By: Ming Childress on 03-29-2023 Anion gap [Moles/Vol] 12.4 mmol/L Normal 6.0-15.0 [facility] Comment on above: Performed By: #### B MP, LIPASE, HEPATIC #### [address] Serum or plasma non-glucuron idated bilirubin measurement (mass/volume)Ordered By: Ming Childress on 03-29-2023 Bilirubin.indirect [Mass/Vol] 0.2 mg/dL [facility] Sodium [Moles/volume] in Ser um or PlasmaOrdered By: Ming Childress on 03-29-2023 Sodium [Moles/Vol] 138 mmol/L Normal 136-145 [facility] Comment on above: Performed By: #### B MP, LIPASE, HEPATIC #### [address] Specific gravity Auto test s trip (U) [Rel density]Ordered By: Ming Childress on 03-29-2023 Specific gravity (U) [Rel density] 1.003 1.001-1.030 [facility] US transvaginalon 03-29-2023 US transvaginal [facility] [place] [address] Ultrasound Report Signed Patient: Livia Noyola MR#: [id number] 757 : 1985 Acct:[id number] Age/Sex: 38 / F ADM Date: 03/29/23 Loc: Room: [address] [place] [address] Type: ADM IN Attending Dr: Christi Aquino MD Ordering Provider: Ming Childress DO Date of Service: 03/29/23 US/US transvaginal: r/o L ovarian torsion ([id number]) US/US pelvic complete: PAIN Copies to: DO [...] Davi Figueroa M.D.03/29/2023 8:20 AM Dictation Location: [place] [address] Tech: Brooke Naveen Transcribed By: AMBER 03/29/23819 Dictated By: Davi Figueroa DO 03/29/23815 Signed By: 03/29/23819 Normal [facility] Urea nitrogen [Mass/volume] in Serum or PlasmaOrdered By: Ming Childress on 03-29-2023 Urea nitrogen [Mass/Vol] 6 mg/dL Low 7-25 [facility] Comment on above: Performed By: #### B MP, LIPASE, HEPATIC #### [facility] [address] Urinalysison 03-29-2023 Appearance (U) Clear Normal Clear [facility] Comment on above: Order Comment: Name Collection Type:: Clean-Voided Midstream Performed By: #### H CGQNT #### [facility] [address] [place] [id number] [facility] Bilirubin,Urine Negative Normal Negative [facility] Comment on above: Order Comment: Name Collection Type:: Clean-Voided Midstream Performed By: #### H CGQNT #### [place] [id number] [place] Glucose Ql (U) Normal Normal Normal [facility] Comment on above: Order Comment: Name Collection Type:: Clean-Voided Midstream Performed By: #### H CGQNT #### [place] [id number] [place] Ketones Ql (U) Negative Normal Negative [facility] Comment on above: Order Comment: Name Collection Type:: Clean-Voided Midstream Performed By: #### H CGQNT #### [place] [address] [place] Leukocyte esterase Test strip Ql (U) Negative Normal Negative [facility] Comment on above: Order Comment: Name Collection Type:: Clean-Voided Midstream Performed By: #### H CGQNT #### [place] [address] [place] Nitrite,Urine Negative Normal Negative [facility] Comment on above: Order Comment: Name Collection Type:: Clean-Voided Midstream Performed By: #### H CGQNT #### [place] [address] [place] Occult Blood,Urine Negative Normal Negative [facility] Comment on above: Order Comment: Name Collection Type:: Clean-Voided Midstream Performed By: #### H CGQNT #### [place] [id number] [place] Protein,Urine Negative Normal Negative [facility] Comment on above: Order Comment: Name Collection Type:: Clean-Voided Midstream Performed By: #### H CGQNT #### [place] [id number] [place] Specificy [place],Urine 1.003 Normal 1.001-1.030 [facility] Comment on above: Order Comment: Name Collection Type:: Clean-Voided Midstream Performed By: #### H CGQNT #### [place] [id number] [place] Urobilinogen,Urine Normal Normal Normal [facility] Comment on above: Order Comment: Name Collection Type:: Clean-Voided Midstream Performed By: #### H CGQNT #### [facility] [address] [place] [address] Urine clarity by refractomet ry automatedOrdered By: Ming Childress on 03-29-2023 Clarity Refractometry automated (U) Clear Clear [facility] Urine glucose measurement by automated test strip (mass/volume)Ordered By: Ming Childress on 03-29-2023 Glucose Auto test strip (U) [Mass/Vol] Normal mg/dL Normal [facility] Urine hemoglobin detection b y automated test stripOrdered By: Ming Childress on 03-29-2023 Hemoglobin Auto test strip Ql (U) Negative Negative [facility] Urine leukocyte esterase det ection by automated test stripOrdered By: Ming Childress on 03-29-2023 Leukocyte esterase Auto test strip Ql (U) Negative Negative [facility] Urine pH measurement by auto mated test stripOrdered By: Ming hCildress on 03-29-2023 pH (U) 7.5 [pH] Normal 5.0-9.0 [facility] Comment on above: Order Comment: Name Collection Type:: Clean-Voided Midstream Performed By: #### H CGQNT #### [facility] [address] [place] [address] Urobilinogen Auto test strip (U) [Mass/Vol]Ordered By: Ming Childress on 03-29-2023 Urobilinogen (U) [Mass/Vol] Normal mg/dL Normal [facility] Automated urine color determ inationOrdered By: Elier Jackson on 02-06-2023 Color (U) Yellow Normal Yellow [facility] Comment on above: Order Comment: Name Collection Type:: Clean-Voided Midstream Performed By: #### U A, UHCG #### [facility] [address] [place] [address] Bilirubin Test strip Ql (U)O rdered By: Elier Jackson on 02-06-2023 Bilirubin Ql (U) Negative Negative [facility] CT abdomen pelvis w conon CT abdomen pelvis w con [facility] [place] [address] [place] [address] CT Scan Report Signed Patient: Livia Noyola MR#: [id number] 757 : 1985 Acct:[id number] Age/Sex: 38 / F ADM Date: 02/05/23 Loc: ER Room: Type: [facility] ER Attending Dr: Copies to: Elier Jackson [...] Betancur Jr., D.O.02/06/2023 11:23 AM Dictation Location: [facility] Transcribed By: [facility] 02/06/23 1123 Dictated By: Dennis Betancur Jr, DO 02/06/23 1109 Signed By: 02/06/23 1123 Normal [facility] HCG ( test) IA.rapi d Ql (U)Ordered By: Elier Jackson on 02-06-2023 HCG ( test) Ql (U) Negative [facility] HCG,Urineon 02-06-2023 Beta HCG ( test) Ql (U) Negative Normal [facility] Comment on above: Order Comment: Name Collection Type:: Clean-Voided Midstream Result Comment: PERF ORMED BY: [place] [address] PATHOLOGIST TELEGRAPH REPEATER TECHNICIAN FARNAZ ZULETA M.D. Performed By: #### U A, [facility] #### [address] Ketones Auto test strip (U) [Mass/Vol]Ordered By: Elier Jackson on 02-06-2023 Ketones (U) [Mass/Vol] Negative Negative [facility] Nitrite Test strip Ql (U)Ord ered By: Elier Jackson on 02-06-2023 Nitrite Ql (U) Negative Negative [facility] Protein Auto test strip (U) [Mass/Vol]Ordered By: Elier Jackson on 02-06-2023 Protein (U) [Mass/Vol] Negative Negative [facility] Specific gravity Auto test s trip (U) [Rel density]Ordered By: Elier Jackson on 02-06-2023 Specific gravity (U) [Rel density] 1.007 1.001-1.030 [facility] US pelvic completeon 023 US pelvic complete [facility] [place] [address] [place] [address] Ultrasound Report Signed Patient: Livia Noyola MR#: [id number] 757 : 1985 Acct:[id number] Age/Sex: 38 / F ADM Date: 02/05/23 Loc: ER Room: Type: [facility] ER Attending Dr: Ordering Provider: Elier Jackson DO Date of Service: 02/06/23 US/US pelvic complete: adnexa pain ([id number]) US/US transvaginal: . Copies to: Elier Jackson [...] Betancur Jr., D.O.02/06/2023 11:25 AM Dictation Location: [facility] Tech: Jada Webb Transcribed By: [facility] 02/06/23 112 Dictated By: Dennis Betancur Jr, DO 02/06/231122 Signed By: 02/06/23 112 Normal [facility] Urinalysison 02-06-2023 Appearance (U) Clear Normal Clear [facility] Comment on above: Order Comment: Name Collection Type:: Clean-Voided Midstream Performed By: #### U A, UHCG #### [facility] [address] [place] [id number] [place] Bilirubin,Urine Negative Normal Negative [facility] Comment on above: Order Comment: Name Collection Type:: Clean-Voided Midstream Performed By: #### U A, UHCG #### [facility] [address] [place] [address] [place] Glucose Ql (U) Normal Normal Normal [facility] Comment on above: Order Comment: Name Collection Type:: Clean-Voided Midstream Performed By: #### U A, UHCG #### [facility] [address] [place] [address] [place] Ketones Ql (U) Negative Normal Negative [facility] Comment on above: Order Comment: Name Collection Type:: Clean-Voided Midstream Performed By: #### U A, UHCG #### [facility] [address] [place] [id number] [place] Leukocyte esterase Test strip Ql (U) Negative Normal Negative [facility] Comment on above: Order Comment: Name Collection Type:: Clean-Voided Midstream Performed By: #### U A, UHCG #### [facility] [address] [place] [address] [place] Nitrite,Urine Negative Normal Negative [facility] Comment on above: Order Comment: Name Collection Type:: Clean-Voided Midstream Performed By: #### U A, UHCG #### [place] [address] [place] Occult Blood,Urine Negative Normal Negative [facility] Comment on above: Order Comment: Name Collection Type:: Clean-Voided Midstream Performed By: #### U A, UHCG #### [place] [address] [place] Protein,Urine Negative Normal Negative [facility] Comment on above: Order Comment: Name Collection Type:: Clean-Voided Midstream Performed By: #### U A, UHCG #### [place] [address] [place] Specificy [place],Urine 1.007 Normal 1.001-1.030 [facility] Comment on above: Order Comment: Name Collection Type:: Clean-Voided Midstream Performed By: #### U A, UHCG #### [address] Urobilinogen,Urine Normal Normal Normal [facility] Comment on above: Order Comment: Name Collection Type:: Clean-Voided Midstream Performed By: #### U A, UHCG #### [address] Urine clarity by refractomet ry automatedOrdered By: Elier Jackson on 02-06-2023 Clarity Refractometry automated (U) Clear Clear [facility] Urine glucose measurement by automated test strip (mass/volume)Ordered By: Elier Jackson on 02-06-2023 Glucose Auto test strip (U) [Mass/Vol] Normal mg/dL Normal [facility] Urine hemoglobin detection b y automated test stripOrdered By: Elier Jackson on 02-06-2023 Hemoglobin Auto test strip Ql (U) Negative Negative [facility] Urine leukocyte esterase det ection by automated test stripOrdered By: Elier Jackson on 02-06-2023 Leukocyte esterase Auto test strip Ql (U) Negative Negative [facility] Urine pH measurement by auto mated test stripOrdered By: Elier Jackson on 02-06-2023 pH (U) 7.0 [pH] Normal 5.0-9.0 [facility] Comment on above: Order Comment: Name Collection Type:: Clean-Voided Midstream Performed By: #### U A, CG #### [address] Urobilinogen Auto test strip (U) [Mass/Vol]Ordered By: Elier Jackson on 02-06-2023 Urobilinogen (U) [Mass/Vol] Normal mg/dL Normal [facility] Alanine aminotransferase [En zymatic activity/volume] in Serum or PlasmaOrdered By: Elier Jackson on 02-05-2023 ALT [Catalytic activity/Vol] 13 U/L Normal 7-52 [facility] Comment on above: Performed By: #### H CGQNT #### [facility] [address] [place] [address] [place] Albumin [Mass/volume] in Ser um or Plasma by Bromocresol green (BCG) dye binding methoOrdered By: Elier Jackson on 02-05-2023 Albumin BCG dye [Mass/Vol] 4.2 g/dL 3.5-5.7 [facility] Alkaline phosphatase [Enzyma tic activity/volume] in Serum or PlasmaOrdered By: Elier Jackson on 02-05-2023 ALP [Catalytic activity/Vol] 52 U/L Normal 34-104 [facility] Comment on above: Performed By: #### H CGQNT #### [facility] [address] [place] [address] [place] Aspartate aminotransferase [ Enzymatic activity/volume] in Serum or PlasmaOrdered By: Elier Jackson on 02-05-2023 AST [Catalytic activity/Vol] 12 U/L Low 13-39 [facility] Comment on above: Performed By: #### H CGQNT #### [address] Automated basophil %Ordered By: Elier Jackson on 02-05-2023 Basophils/100 WBC (Bld) 1.4 % Normal . [facility] Comment on above: Performed By: #### H EPATIC, LIPASE, BMP, CBC #### [address] Automated basophil countOrde red By: Elier Jackson on 02-05-2023 Basophils (Bld) [#/Vol] 0.1 10*3/uL Normal 0.0-0.2 [facility] Comment on above: Result Comment: PERF ORMED BY: [place] [address] PATHOLOGIST TELEGRAPH REPEATER TECHNICIAN FARNAZ ZULETA M.D. Performed By: #### H EPATIC, LIPASE, BMP, CBC #### [address] Automated blood monocyte cou ntOrdered By: Elier Jackson on 02-05-2023 Monocytes (Bld) [#/Vol] 0.7 10*3/uL Normal 0.0-0.8 [facility] Comment on above: Performed By: #### H EPATIC, LIPASE, BMP, CBC #### [address] Automated eosinophil %Ordere d By: Elier Jackson on 02-05-2023 Eosinophils/100 WBC (Bld) 1.5 % Normal . [facility] Comment on above: Performed By: #### H EPATIC, LIPASE, BMP, CBC #### [address] Automated eosinophil countOr dered By: Elier Jackson on 02-05-2023 Eosinophils (Bld) [#/Vol] 0.1 10*3/uL Normal 0.0-0.45 [facility] Comment on above: Performed By: #### H EPATIC, LIPASE, BMP, CBC #### [address] Automated monocyte %Ordered By: Elier Jackson on 02-05-2023 Monocytes/100 WBC (Bld) 8.4 % Normal . [facility] Comment on above: Performed By: #### H EPATIC, LIPASE, BMP, CBC #### [facility] [address] Automated neutrophil %Ordere d By: Elier Jackson on 02-05-2023 Neutrophils/100 WBC (Bld) 44.4 % Normal . [facility] Comment on above: Performed By: #### H EPATIC, LIPASE, BMP, CBC #### [facility] [address] Basic Metabolic Panelon 01-12 Creatinine Clr Calc Pharmacy 115.62 Normal [facility] Comment on above: Performed By: #### H CGQNT #### [address] GFR/1.73 sq M.predicted MDRD (S/P/Bld) [Vol rate/Area] mL/min/{1.73_m2} Normal [facility] Comment on above: Performed By: #### H CGQNT #### [facility] [address] [place] [address] Bilirubin.direct [Mass/volum e] in Serum or PlasmaOrdered By: Elier Jackson on 02-05-2023 Bilirubin.direct [Mass/Vol] 0.10 mg/dL 0.03-0.18 [facility] Bilirubin.total [Mass/volume ] in Serum or PlasmaOrdered By: Elier Jackson on 02-05-2023 Bilirubin [Mass/Vol] 0.3 mg/dL Normal 0.3-1.0 [facility] Comment on above: Performed By: #### H CGQNT #### [facility] [address] [place] [address] Calcium [Mass/volume] in Ser um or PlasmaOrdered By: Elier Jackson on 02-05-2023 Calcium [Mass/Vol] 9.2 mg/dL Normal 8.6-10.3 [facility] Comment on above: Performed By: #### H CGQNT #### [address] [place] [address] [place] Carbon dioxide, total [Moles /volume] in Serum or PlasmaOrdered By: Elier Jackson on 02-05-2023 CO2 [Moles/Vol] 21.5 mmol/L Normal 21.0-31.0 [facility] Comment on above: Performed By: #### H CGQNT #### [facility] [address] [place] [address] [place] Chloride [Moles/volume] in S binu or PlasmaOrdered By: Elier Jackson on 02-05-2023 Chloride [Moles/Vol] 107 mmol/L Normal 98-107 [facility] Comment on above: Performed By: #### H CGQNT #### [facility] [address] Choriogonadotropin.beta subu nit [Units/volume] in Serum or PlasmaOrdered By: Elier Jackson on 02-05-2023 HCG.beta subunit Qn m[IU]/mL [facility] Comment on above: Approximate Approxim ate hCG Gestational Age Range (mIU/ml) (weeks)0.2-1 5-50 1-2 50-500 2-3 100-5,000 3-4 500-10,000 4-5 1,000-50,000 5-6 10,000-100,000 6-8 15,000-200,000 8-12 10,000-100,000 HCG.beta subunit Qn Negative [facility] Complete Blood Count Auto Di ffon 02-05-2023 Mean Corpuscular HGB Conc 31.8 g/dL Low 32.0-35.0 [facility] Comment on above: Performed By: #### H EPATIC, LIPASE, BMP, CBC #### [facility] [address] [place] [address] [place] Monocytes/100 WBC (Bld) 17.33 % Normal 0.00-20.00 T ryder [facility] Comment on above: Performed By: #### H EPATIC, LIPASE, BMP, CBC #### [facility] [address] [place] [address] [place] NRBC% 0.1 /100{WBC} Normal 0-0.5 [facility] Comment on above: Performed By: #### H EPATIC, LIPASE, BMP, CBC #### [address] Creatinine [Mass/volume] in Serum or PlasmaOrdered By: Elier Jackson on 02-05-2023 Creatinine [Mass/Vol] 0.71 mg/dL Normal 0.60-1.20 [facility] Comment on above: Performed By: #### H CGQNT #### [address] Erythrocyte distribution wid th [Ratio] by Automated countOrdered By: Elier Jackson on 02-05-2023 Erythrocyte distribution width (RBC) [Ratio] 15.9 % High 11.9-15.3 [facility] Comment on above: Performed By: #### H EPATIC, LIPASE, BMP, CBC #### [place] [address] [place] Erythrocytes [#/volume] in B lood by Automated countOrdered By: Elier Jackson on 02-05-2023 RBC (Bld) [#/Vol] 4.78 10*6/uL Normal 3.60-5.00 [facility] Comment on above: Performed By: #### H EPATIC, LIPASE, BMP, CBC #### [address] Glucose [Mass/volume] in Ser um or PlasmaOrdered By: Elier Jackson on 02-05-2023 Glucose [Mass/Vol] 99 mg/dL Normal 70-100 [facility] Comment on above: ADA recommended refe rence rangeRandom Glucose Reference Range is dependent on time and content of last meal. Glucose of more than 200 mg/dL in a nonstressed, ambulatory subject supports the diagnosis of Diabetes Mellitus. Result Comment: [place] Glucose Reference Range is dependent on time and content of last meal. Glucose of more than 200 mg/dL in a nonstressed, ambulatory subject supports the diagnosis of Diabetes Mellitus. ADA recommended reference range Performed By: #### H CGQNT #### [address] HCG,Qualitative Serumon 01-12 HCG,Qualitative Serum Negative Normal [facility] Comment on above: Result Comment: PERF ORMED BY: [place] [address] PATHOLOGIST TELEGRAPH REPEATER TECHNICIAN FARNAZ ZULETA M.D. Performed By: #### U HCG, ADDONUAPLUS #### [address] HCG,Quantitativeon 3 HCG,Quantitative < 0.60 Normal [facility] Comment on above: Result Comment: Appr oximate Approximate hCG Gestational Age Range (mIU/ml) (weeks) 0.2-1 5-50 1-2 50-500 2-3 100-5,000 3-4 500-10,000 4-5 1,000-50,000 5-6 10,000-100,000 6-8 15,000-200,000 8-12 10,000-100,000 PERFORMED BY: [place] [address] PATHOLOGIST TELEGRAPH REPEATER TECHNICIAN FARNAZ ZULETA M.D. Performed By: #### H CGQNT #### [address] Hematocrit [Volume Fraction] of Blood by Automated countOrdered By: Elier Jackson on 02-05-2023 Hematocrit (Bld) [Volume fraction] 37.3 % Normal 34.0-46.4 [facility] Comment on above: Performed By: #### H EPATIC, LIPASE, BMP, CBC #### [address] Hemoglobin [Mass/volume] in BloodOrdered By: Elier Jackson on 02-05-2023 Hemoglobin (Bld) [Mass/Vol] 11.8 g/dL Normal 11.8-15.4 [facility] Comment on above: Performed By: #### H EPATIC, LIPASE, BMP, CBC #### [address] Hepatic Panelon 02-05-2023 Albumin [Mass/Vol] 4.2 g/dL Normal 3.5-5.7 [facility] Comment on above: Performed By: #### H CGQNT #### [address] Bilirubin,Indirect 0.2 mg/dL Normal [facility] Comment on above: Performed By: #### H CGQNT #### [address] Bilirubin.indirect [Mass/Vol] 0.10 mg/dL Normal 0.03-0.18 [facility] Comment on above: Performed By: #### H CGQNT #### [address] Leukocytes [#/volume] correc flo for nucleated erythrocytes in Blood by Automated counOrdered By: Elier Jackson on 02-05-2023 WBC corrected for nucl RBC Auto (Bld) [#/Vol] 8.1 10*3/uL 3.8-11.6 [facility] [facility] Leukocytes [#/volume] in Blo od by Automated countOrdered By: Elier Jackson on 02-05-2023 WBC (Bld) [#/Vol] 8.1 10*3/uL Normal 3.8-11.6 [facility] Comment on above: Performed By: #### H EPATIC, LIPASE, BMP, CBC #### [facility] [address] [place] [address] Lipase [Enzymatic activity/v olume] in Serum or PlasmaOrdered By: Elier Jackson on 02-05-2023 Lipase [Catalytic activity/Vol] 40.0 U/L Normal 11.0-82.0 [facility] Comment on above: Result Comment: PERF ORMED BY: [place] [address] PATHOLOGIST TELEGRAPH REPEATER TECHNICIAN FARNAZ ZULETA M.D. Performed By: #### H CGQNT #### [address] Lymphocytes [#/volume] in Bl ood by Automated countOrdered By: Elier Jackson on 02-05-2023 Lymphocytes (Bld) [#/Vol] 3.6 10*3/uL Normal 1.00-4.8 [facility] Comment on above: Performed By: #### H EPATIC, LIPASE, BMP, CBC #### [facility] [address] Lymphocytes/100 leukocytes i n Blood by Automated countOrdered By: Elier Jackson on 02-05-2023 Lymphocytes/100 WBC (Bld) 44.3 % Normal . [facility] Comment on above: Performed By: #### H EPATIC, LIPASE, BMP, CBC #### [facility] [address] [place] [address] MCH [Entitic mass] by Automa flo countOrdered By: Elier Jackson on 02-05-2023 MCH (RBC) [Entitic mass] 24.8 pg Normal 24.7-34.3 [facility] Comment on above: Performed By: #### H EPATIC, LIPASE, BMP, CBC #### [facility] [address] [place] [address] MCHC Auto (RBC) [Mass/Vol]Or dered By: Elier Jackson on 02-05-2023 MCHC (RBC) [Mass/Vol] 31.8 g/dL 32.0-35.0 [facility] MCV [Entitic volume] by Auto mated countOrdered By: Elier Jackson on 02-05-2023 MCV (RBC) [Entitic vol] 78.1 fL Low 80-100 [facility] Comment on above: Performed By: #### H EPATIC, LIPASE, BMP, CBC #### [facility] [address] [place] [address] Monocyte distribution width [Entitic volume] in Blood by AutomatedOrdered By: Elier Jackson on 02-05-2023 Monocyte distribution width Auto (Bld) [Entitic vol] 17.33 % 0.00-20.00 [facility] Neutrophils [#/volume] in Bl ood by Automated countOrdered By: Elier Jackson on 02-05-2023 Neutrophils (Bld) [#/Vol] 3.6 10*3/uL Normal 1.8-7.7 [facility] Comment on above: Performed By: #### H EPATIC, LIPASE, BMP, CBC #### [address] No Panel InformationOrdered By: Elier Jackson on 02-05-2023 Estimated GFR (CKD-EPI) > 60.0 mL/Min [facility] Creatinine Clearance (Chem 115.62 [facility] Nucleated erythrocytes [Pres ence] in Blood by Automated countOrdered By: Elier Jackson on 02-05-2023 Nucleated RBC Auto Ql (Bld) 0.1 /100{WBC} 0-0.5 [facility] Platelet mean volume [Entiti c volume] in Blood by Automated countOrdered By: Elier Jackson on 02-05-2023 Platelet mean volume (Bld) [Entitic vol] 8.0 fL Normal 6.3-10.7 [facility] Comment on above: Performed By: #### H EPATIC, LIPASE, BMP, CBC #### [address] Platelets [#/volume] in Bloo d by Automated countOrdered By: Elier Jackson on 02-05-2023 Platelets (Bld) [#/Vol] 398 10*3/uL Normal 150-450 [facility] Comment on above: Performed By: #### H EPATIC, LIPASE, BMP, CBC #### [facility] [address] [place] [address] [place] Potassium [Moles/volume] in Serum or PlasmaOrdered By: Elier Jackson on 02-05-2023 Potassium [Moles/Vol] 3.4 mmol/L Low 3.5-5.1 [facility] Comment on above: Performed By: #### H CGQNT #### [address] Protein [Mass/volume] in Ser um or PlasmaOrdered By: Elier Jackson on 02-05-2023 Protein [Mass/Vol] 7.2 g/dL Normal 6.4-8.9 [facility] Comment on above: Performed By: #### H CGQNT #### [address] Serum globulin measurement b y calculation (mass/volume)Ordered By: Elier Jackson on 02-05-2023 Globulin (S) [Mass/Vol] 3.0 g/dL Normal [facility] Comment on above: Performed By: #### H CGQNT #### [address] Serum or plasma albumin/glob ulin mass ratioOrdered By: Elier Jackson on 02-05-2023 Albumin/Globulin [Mass ratio] 1.4 {ratio} Normal [facility] Comment on above: Performed By: #### H CGQNT #### [address] Serum or plasma anion gap de terminationOrdered By: Elier Jackson on 02-05-2023 Anion gap [Moles/Vol] 11.9 mmol/L Normal 6.0-15.0 [facility] Comment on above: Performed By: #### H CGQNT #### [address] Serum or plasma non-glucuron idated bilirubin measurement (mass/volume)Ordered By: Elier Jackson on 02-05-2023 Bilirubin.indirect [Mass/Vol] 0.2 mg/dL [facility] Sodium [Moles/volume] in Ser um or PlasmaOrdered By: Elier Jackson on 02-05-2023 Sodium [Moles/Vol] 137 mmol/L Normal 136-145 [facility] Comment on above: Performed By: #### H CGQNT #### [address] Urea nitrogen [Mass/volume] in Serum or PlasmaOrdered By: Elier Jackson on 02-05-2023 Urea nitrogen [Mass/Vol] 6 mg/dL Low 7-25 [facility] Comment on above: Performed By: #### H CGQNT #### [address] GENITAL CULTUREon 08-01-2022 Genital Culture, Routine Final report Abnormal [facility] Comment on above: Result Comment: Spec imen stability note: A swab transport (ie., ESwab, Amies agar gel) received by the lab more than 24 hours after collection may result in reduced recovery of Neisseria gonorrhoeae (GC). (This is informational only and may not apply to this specimen.) Performed By: #### C XGENIT #### [facility] [address] [place] [address] Dr. Rod Ramirez Result 1 Comment Abnormal [facility] Comment on above: Result Comment: Beta hemolytic [...] (CLSI) Performed By: #### C XGENIT #### [facility] [address] [place] [address] Dr. Rod Ramirez Result 2 Comment Normal [facility] Comment on above: Result Comment: Rout ine genital rashid. Light growth Performed By: #### C XGENIT #### [facility] [address] [place] [address] Dr. Rod Ramirez CBC AUTO DIFFon 07-28-2022 BASO # 0.0 103/ul Normal 0.0-0.1 [facility] Comment on above: Performed By: #### C BC #### [facility] [address] [place] [address] Dr. Rod Ramirez Basophils/100 WBC (Bld) 0.4 % Normal 0.2-2.0 [facility] Comment on above: Performed By: #### C BC #### [facility] [address] [place] [address] Dr. Rod Ramirez EO # 0.1 103/ul Normal 0.0-0.7 [facility] Comment on above: Performed By: #### C BC #### [facility] [address] [place] [address] Dr. Rod Ramirez Eosinophils/100 WBC (Bld) 1.5 % Normal 0.9-7.0 [facility] Comment on above: Performed By: #### C BC #### [facility] [address] [place] [address] Dr. Rod Ramirez Erythrocyte distribution width (RBC) [Ratio] 12.9 % Normal 11.0-15.0 [facility] Comment on above: Performed By: #### C BC #### [facility] [address] [place] [address] Dr. Rod Ramirez Hematocrit (Bld) [Volume fraction] 40.9 % Normal 36.0-48.0 [facility] Comment on above: Performed By: #### C BC #### [facility] [address] [place] [address] Dr. Rod Ramirez Hemoglobin (Bld) [Mass/Vol] 13.7 g/dL Normal 12.0-16.0 [facility] Comment on above: Performed By: #### C BC #### [facility] [address] [place] [address] Dr. Rod Ramirez IG # 0.02 10e3/ul Normal 0.00-0.03 [facility] Comment on above: Performed By: #### C BC #### [facility] [address] [place] [address] Dr. Rod Ramirez IG % 0.3 % Normal 0.0-0.5 [facility] Comment on above: Performed By: #### C BC #### [facility] [address] [place] [address] Dr. Rod Ramirez LYMPH # 1.6 103/ul Normal 1.2-3.8 [facility] Comment on above: Performed By: #### C BC #### [facility] [address] [place] [address] Dr. Rod Ramirez Lymphocytes/100 WBC (Bld) 23.6 % Normal 20.5-60.0 [facility] Comment on above: Performed By: #### C BC #### [facility] [address] [place] [address] Dr. Rod Ramirez MANUAL DIFF REQ NO Normal [facility] Comment on above: Performed By: #### C BC #### [facility] [address] [place] [address] Dr. Rod Ramirez MCH (RBC) [Entitic mass] 27.7 pg Normal 26.7-34.0 [facility] Comment on above: Performed By: #### C BC #### [facility] [address] [place] [address] Dr. Rod Ramirez MCHC (RBC) [Mass/Vol] 33.5 g/dL Normal 29.9-35.2 [facility] Comment on above: Performed By: #### C BC #### [facility] [address] [place] [address] Dr. Rod Ramirez MCV (RBC) [Entitic vol] 82.6 fL Normal 81.0-99.0 [facility] Comment on above: Performed By: #### C BC #### [facility] [address] [place] [address] Dr. Rod Ramirez MONO # 0.4 103/ul Normal 0.3-0.8 [facility] Comment on above: Performed By: #### C BC #### [facility] [address] [place] [address] Dr. Rod Ramirez Monocytes/100 WBC (Bld) 6.4 % Normal 1.7-12.0 [facility] Comment on above: Performed By: #### C BC #### [facility] [address] [place] [address] Dr. Rod Ramirez NEUT # 4.6 103/ul Normal 1.4-6.5 [facility] Comment on above: Performed By: #### C BC #### [facility] [address] [place] [address] Dr. Rod Ramirez Neutrophils/100 WBC (Bld) 67.8 % Normal 43.0-75.0 [facility] Comment on above: Performed By: #### C BC #### [facility] [address] [place] [address] Dr. Rod Ramirez Platelet mean volume (Bld) [Entitic vol] 9.4 fL Critically low 9.5-13.5 [facility] Comment on above: Performed By: #### C BC #### [facility] [address] [place] [address] Dr. Rod Ramirez PLT 439 103/ul Normal 150-450 [facility] Comment on above: Performed By: #### C BC #### [facility] [address] [place] [address] Dr. Rod Ramirez RBC 4.95 106/ul Normal 4.20-5.40 [facility] Comment on above: Performed By: #### C BC #### [facility] [address] [place] [address] Dr. Rod Ramirez WBC 6.7 103/ul Normal 4.0-11.0 [facility] Comment on above: Performed By: #### C BC #### [facility] [address] [place] [address] Dr. Rod Ramirez PREG HCG QUALon 07-28-2022 , QUAL Negative Normal NEGATIVE [facility] Comment on above: Performed By: #### P REG #### [facility] [address] [place] [address] Dr. Rod Ramirez PROF CHEM 8 (BAS METB)on Anion gap [Moles/Vol] 15.5 mmol/L Normal [facility] Comment on above: Performed By: #### B MP #### [facility] [address] [place] [address] Dr. Rod Ramirez Calcium [Mass/Vol] 9.0 mg/dL Normal 8.5-10.1 [facility] Comment on above: Performed By: #### B MP #### [facility] [address] [place] [address] Dr. Rod Ramirez Chloride [Moles/Vol] 103 mmol/L Normal 98-107 [facility] Comment on above: Performed By: #### B MP #### [facility] [address] [place] [address] Dr. Rod Ramirez CO2 [Moles/Vol] 23.9 mmol/L Normal 21.0-32.0 [facility] Comment on above: Performed By: #### B MP #### [facility] [address] [address] [address] Rod Ramirez Creatinine [Mass/Vol] 0.79 mg/dL Normal 0.55-1.02 [facility] Comment on above: Performed By: #### B MP #### [facility] [address] [address] [address] Rod Ramirez EGFR-AF ALGERIAN >60 Normal >=60 [facility] Comment on above: Performed By: #### B MP #### [facility] [address] [address] [address] Rod Ramirez EGFR-NON AF ALGERIAN >60 Normal >=60 [facility] Comment on above: Performed By: #### B MP #### [facility] [address] [address] [address] Rod Ramirez Glucose [Mass/Vol] 108 mg/dL Critically high 74-106 [facility] Comment on above: Performed By: #### B MP #### [facility] [address] [address] [address] Rod Ramirez Potassium [Moles/Vol] 3.4 mmol/L Critically low 3.5-5.1 [facility] Comment on above: Performed By: #### B MP #### [facility] [address] [address] [address] Rod Ramirez Sodium [Moles/Vol] 139 mmol/L Normal 136-145 [facility] Comment on above: Performed By: #### B MP #### [facility] [address] [address] [address] Rod Ramirez Urea nitrogen [Mass/Vol] 7.0 mg/dL Normal 7.0-18.0 [facility] Comment on above: Performed By: #### B MP #### [facility] [address] [address] [address] Rod Ramirez Urea nitrogen/Creatinine [Mass ratio] 8.9 mg/mg Normal [facility] Comment on above: Performed By: #### B MP #### [facility] [address] [address] [address] Rod Ramirez US PELVIS TRANSVAGon 023 [...] AUBREY BURKS Date: 2022-07-28 07:46 Normal [facility] WET PREPon 07-28-2022 CLUE CELLS NONE SEEN Normal NONE SEEN [facility] Comment on above: Performed By: #### W P #### [facility] [address] [address] [address] Rod Ramirez FUNGAL ELEMENTS NONE SEEN Normal NONE SEEN [facility] Comment on above: Performed By: #### W P #### [facility] [address] [address] [address] Rod Ramirez RBC -WET PREP RARE Abnormal NONE SEEN [facility] Comment on above: Performed By: #### W P #### [facility] [address] [address] [address] Rod Ramirez TRICHOMONAS NONE SEEN Normal NONE SEEN [facility] Comment on above: Performed By: #### W P #### [facility] [address] [address] [address] Rod Ramirez WBC- WET PREP RARE Abnormal NONE SEEN [facility] Comment on above: Performed By: #### W P #### [facility] [address] [address] [address] Rod Ramirez WET PREP BACTERIA NONE SEEN Normal NONE SEEN [facility] Comment on above: Performed By: #### W P #### [facility] [address] [address] [address] Rod Morales 04-30-2022 CNPN Telephone (HEMASA) LIVIA NOYOLA ([id number]) 1985 F Date Time Provider Department 04/30/22 [...] Fully Assessed Reason for Visit: Lab Orders [3198] Primary Visit Diagnosis:Iron deficiency anemia due to chronic blood loss [D50.0] Order(s):COMP METABOLIC PANEL [SQCMP] Order #: [id number] FUTURE Prescriptions as of 05/03/2022 - ALPRAZolam [...] Status:Closed by GIL NI on 05/03/22 Normal [facility] Anisocytosis LM Ql (Bld)Orde red By: Yevgeniy Cabrera on 04-28-2022 Anisocytosis Ql (Bld) Marked [facility] Automated erythrocytes count in urine sediment (number/area)Ordered By: Yevgeniy Cabrera on 04-28-2022 RBC Auto (Urine sed) [#/Area] None seen [HPF] 0-4 [facility] Automated leukocytes count i n urine sediment (number/area)Ordered By: Yevgeniy Cabrera on 04-28-2022 WBC Auto (Urine sed) [#/Area] 3-4 [HPF] 0-4 [facility] Basophils Auto (Bld) [#/Vol] Ordered By: Yevgeniy Cabrera on 04-28-2022 Basophils (Bld) [#/Vol] 0.1 10*3/uL 0.0-0.2 [facility] Basophils/100 WBC Auto (Bld) Ordered By: Yevgeniy Cabrera on 04-28-2022 Basophils/100 WBC (Bld) 1.0 % . [facility] Bilirubin Test strip Ql (U)O rdered By: Yevgeniy Cabrera on 04-28-2022 Bilirubin Ql (U) Negative Negative [facility] Body fluid albumin measureme nt (mass/volume)Ordered By: Yevgeniy Cabrera on 04-28-2022 Albumin (Body fld) [Mass/Vol] 3.8 g/dL 3.2-5.5 [facility] Color Auto (U)Ordered By: Marcus Cabrera on 04-28-2022 Color (U) Yellow Yellow [facility] Creatinine and Glomerular fi ltration rate.predicted panel (S/P/Bld)Ordered By: Yevgeniy Cabrera on 04-28-2022 Creatinine [Mass/Vol] 0.62 mg/dL 0.44-1.03 [facility] Eosinophils Auto (Bld) [#/Vo l]Ordered By: Yevgeniy Cabrera on 04-28-2022 Eosinophils (Bld) [#/Vol] 0.1 10*3/uL 0.0-0.45 [facility] Eosinophils/100 WBC Auto (Bl d)Ordered By: Yevgeniy Cabrera on 04-28-2022 Eosinophils/100 WBC (Bld) 1.0 % . [facility] Erythrocyte distribution wid th Auto (RBC) [Ratio]Ordered By: Yevgeniy Cabrera on 04-28-2022 Erythrocyte distribution width (RBC) [Ratio] 27.1 % 11.9-15.3 [facility] Estimated glomerular filtrat ion rate (GFR) non- AmericanOrdered By: Yevgeniy Cabrera on 04-28-2022 GFR/1.73 sq M.predicted among non-blacks MDRD (S/P/Bld) [Vol rate/Area] > 60 mL/Min [facility] Globulin Calc (S) [Mass/Vol] Ordered By: Yevgeniy Cabrera on 04-28-2022 Globulin (S) [Mass/Vol] 3.1 g/dL [facility] HCG ( test) IA.rapi d Ql (U)Ordered By: Yevgeniy Cabrera on 04-28-2022 HCG ( test) Ql (U) Negative [facility] Hematocrit Auto (Bld) [Volum e fraction]Ordered By: Yevgeniy Cabrera on 04-28-2022 Hematocrit (Bld) [Volume fraction] 39.4 % 34.0-46.4 [facility] Hemoglobin [Mass/volume] in BloodOrdered By: Yevgeniy Cabrera on 04-28-2022 Hemoglobin (Bld) [Mass/Vol] 12.3 g/dL 11.8-15.4 [facility] Hypochromia LM Ql (Bld)Order ed By: Yevgeniy Cabrera on 04-28-2022 Hypochromia Ql (Bld) Slight [facility] Ketones Auto test strip (U) [Mass/Vol]Ordered By: Yevgeniy Cabrera on 04-28-2022 Ketones (U) [Mass/Vol] Negative Negative [facility] - Hematology and Cell countsOrdered By: Yevgeniy Cabrera on 04-28-2022 Nucleated RBC/100 WBC (Bld) [Ratio] 0.0 % 0-0.5 [facility] - UrinalysisOrder ed By: Yevgeniy Cabrera on 04-28-2022 Hyaline casts LM Ql (Urine sed) None seen [LPF] 0-8 [facility] Leukocytes [#/volume] in Blo od by Automated countOrdered By: Yevgeniy Cabrera on 04-28-2022 WBC (Bld) [#/Vol] 7.9 10*3/uL 4.5-11.0 [facility] Lymphocytes Auto (Bld) [#/Vo l]Ordered By: Yevgeniy Cabrera on 04-28-2022 Lymphocytes (Bld) [#/Vol] 2.3 10*3/uL 1.00-4.8 [facility] Lymphocytes/100 WBC Auto (Bl d)Ordered By: Yevgeniy Cabrera on 04-28-2022 Lymphocytes/100 WBC (Bld) 28.9 % . [facility] MCH Auto (RBC) [Entitic mass ]Ordered By: Yevgeniy Cabrera on 04-28-2022 MCH (RBC) [Entitic mass] 23.3 pg 24.7-34.3 [facility] MCHC Auto (RBC) [Mass/Vol]Or dered By: Yevgeniy Cabrera on 04-28-2022 MCHC (RBC) [Mass/Vol] 31.3 g/dL 32.0-35.0 [facility] MCV Auto (RBC) [Entitic vol] Ordered By: Yevgeniy Cabrera on 04-28-2022 MCV (RBC) [Entitic vol] 74.5 fL 80-100 [facility] Monocytes Auto (Bld) [#/Vol] Ordered By: Yevgeniy Cabrera on 04-28-2022 Monocytes (Bld) [#/Vol] 0.4 10*3/uL 0.0-0.8 [facility] Monocytes/100 WBC Auto (Bld) Ordered By: Yevgeniy Cabrera on 04-28-2022 Monocytes/100 WBC (Bld) 4.5 % . [facility] Neutrophils Auto (Bld) [#/Vo l]Ordered By: Yevgeniy Cabrera on 04-28-2022 Neutrophils (Bld) [#/Vol] 5.1 10*3/uL 1.8-7.7 [facility] Neutrophils/100 WBC Auto (Bl d)Ordered By: Yevgeniy Cabrera on 04-28-2022 Neutrophils/100 WBC (Bld) 64.6 % . [facility] Nitrite Test strip Ql (U)Ord ered By: Yevgeniy Cabrera on 04-28-2022 Nitrite Ql (U) Negative Negative [facility] No Panel InformationOrdered By: Yevgeniy Cabrera on 04-28-2022 Estimated GFR () > 60 mL/Min [facility] Comment on above: GFR estimated refere nce range: According to KDOQI guidelines, <60 ml/min/1.73m2 is sufficient to diagnose a patient with chronic kidney disease. Pharmacy Creatinine Clearance (Chem 132.36 [facility] Slides for Pathologist Review Ordered path review [facility] Ovalocyte detectionOrdered B y: Yevgeniy Cabrera on 04-28-2022 Ovalocytes LM Ql (Bld) Moderate [facility] Platelet adequacy [Presence] in Blood by Light microscopyOrdered By: Yevgeniy Cabrera on 04-28-2022 Platelets LM Ql (Bld) Normal Normal [facility] Platelet mean volume Auto (B ld) [Entitic vol]Ordered By: Yevgeniy Cabrera on 04-28-2022 Platelet mean volume (Bld) [Entitic vol] 7.4 fL 6.3-10.7 [facility] Platelet morphology finding [Identifier] in BloodOrdered By: Yevgeniy Cabrera on 04-28-2022 Platelet morphology finding Nom (Bld) Normal Normal [facility] Platelets Auto (Bld) [#/Vol] Ordered By: Yevgeniy Cabrera on 04-28-2022 Platelets (Bld) [#/Vol] 329 10*3/uL 150-450 [facility] Poikilocytosis [Presence] in Blood by Light microscopyOrdered By: Yevgeniy Cabrera on 04-28-2022 Poikilocytosis LM Ql (Bld) Moderate [facility] Polychromasia [Presence] in Blood by Light microscopyOrdered By: Yevgeniy Cabrera on 04-28-2022 Polychromasia LM Ql (Bld) Slight [facility] Protein Auto test strip (U) [Mass/Vol]Ordered By: Yevgeniy Cabrera on 04-28-2022 Protein (U) [Mass/Vol] Negative Negative [facility] Protein [Mass/volume] in Ser um or PlasmaOrdered By: Yevgeniy Cabrera on 04-28-2022 Protein [Mass/Vol] 6.9 g/dL 6.1-7.9 [facility] RBC Auto (Bld) [#/Vol]Ordere d By: Yevgeniy Cabrera on 04-28-2022 RBC (Bld) [#/Vol] 5.29 10*6/uL 3.60-5.00 [facility] RBC morphologyOrdered By: Marcus oli Rick on 04-28-2022 RBC morphology finding Nom (Bld) N/A [facility] Serum or plasma alanine syed otransferase measurement without P-5'-P (enzymatic activiOrdered By: Yevgeniy Cabrera on 04-28-2022 ALT No additional P-5'-P [Catalytic activity/Vol] 43 U/L 10-60 [facility] Serum or plasma albumin/glob ulin mass ratioOrdered By: Yevgeniy Cabrera on 04-28-2022 Albumin/Globulin [Mass ratio] 1.2 {ratio} [facility] Serum or plasma alkaline zeeshan sphatase measurement (enzymatic activity/volume)Ordered By: Yevgeniy Cabrera on 04-28-2022 ALP [Catalytic activity/Vol] 65 U/L 32-92 [facility] Serum or plasma anion gap de terminationOrdered By: Yevgeniy Cabrera on 04-28-2022 Anion gap [Moles/Vol] 14.6 mmol/L 6.0-15.0 [facility] Serum or plasma aspartate am inotransferase measurement (enzymatic activity/volume)Ordered By: Yevgeniy Cabrera on 04-28-2022 AST [Catalytic activity/Vol] 26 U/L 10-42 [facility] Serum or plasma calcium donaldo urement (mass/volume)Ordered By: Yevgeniy Cabrera on 04-28-2022 Calcium [Mass/Vol] 9.3 mg/dL 8.2-10.2 [facility] Serum or plasma chloride claudia surement (moles/volume)Ordered By: Yevgeniy Cabrera on 04-28-2022 Chloride [Moles/Vol] 105 mmol/L 95-114 [facility] Serum or plasma glucose donaldo urement (mass/volume)Ordered By: Yevgeniy Cabrera on 04-28-2022 Glucose [Mass/Vol] 112 mg/dL 70-100 [facility] Comment on above: ADA recommended refe rence rangeRandom Glucose Reference Range is dependent on time and content of last meal. Glucose of more than 200 mg/dL in a nonstressed, ambulatory subject supports the diagnosis of Diabetes Mellitus. Serum or plasma potassium me asurement (moles/volume)Ordered By: Yevgeniy Cabrera on 04-28-2022 Potassium [Moles/Vol] 3.7 mmol/L 3.5-5.1 [facility] Serum or plasma sodium measu rement (moles/volume)Ordered By: Yevgeniy Cabrera on 04-28-2022 Sodium [Moles/Vol] 137 mmol/L 136-146 [facility] Serum or plasma total biliru bin measurement (mass/volume)Ordered By: Yevgeniy Cabrera on 04-28-2022 Bilirubin [Mass/Vol] 0.5 mg/dL 0.3-1.2 [facility] Serum or plasma total carbon dioxide measurement (moles/volume)Ordered By: Yevgeniy Cabrera on 04-28-2022 CO2 [Moles/Vol] 21.1 mmol/L 22.0-30.0 [facility] Serum or plasma urea nitroge n measurement (mass/volume)Ordered By: Yevgeniy Cabrera on 04-28-2022 Urea nitrogen [Mass/Vol] 5 mg/dL 9-23 [facility] Specific gravity Auto test s trip (U) [Rel density]Ordered By: Yevgeniy Cabrera on 04-28-2022 Specific gravity (U) [Rel density] 1.005 1.001-1.030 [facility] Squamous epithelial cells de tection in urine sediment by light microscopyOrdered By: Yevgeniy Cabrera on 04-28-2022 Epithelial cells.squamous LM Ql (Urine sed) 0-1 [HPF] 0-2 [facility] Teardrop cell detectionOrder ed By: Yevgeniy Cabrera on 04-28-2022 Dacrocytes LM Ql (Bld) Slight Fi relaFormerly [facility] Urine bacteria detection by automated methodOrdered By: Yevgeniy Cabrera on 04-28-2022 Bacteria Auto Ql (U) None seen None Seen [facility] Urine clarity by refractomet ry automatedOrdered By: Yevgeniy Cabrera on 04-28-2022 Clarity Refractometry automated (U) Cloudy Clear [facility] Urine glucose measurement by automated test strip (mass/volume)Ordered By: Yevgeniy Cabrera on 04-28-2022 Glucose Auto test strip (U) [Mass/Vol] Normal mg/dL Normal [facility] Urine hemoglobin detection b y automated test stripOrdered By: Yevgeniy Cabrera on 04-28-2022 Hemoglobin Auto test strip Ql (U) Negative Negative [facility] Urine leukocyte esterase det ection by automated test stripOrdered By: Yevgeniy Cabrera on 04-28-2022 Leukocyte esterase Auto test strip Ql (U) 1+ Negative [facility] Urobilinogen Auto test strip (U) [Mass/Vol]Ordered By: Yevgeniy Cabrera on 04-28-2022 Urobilinogen (U) [Mass/Vol] Normal mg/dL Normal [facility] pH Auto test strip (U)Ordere d By: Yevgeniy Cabrera on 04-28-2022 pH (U) 6.5 [pH] 5.0-9.0 [facility] ALLIED HEALTHon 04-09-2022 ALLIED HEALTH HNO ID: [id number] Author: Donald Villegas Service: ? Author Type: [...] Stephenie Suh 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 PATIENT NAME: Livia Noyola DATE: April 09, 2022 TIME: 2:21 PM PAGER/CONTACT #: Angela [facility] Andrew 03-19-2022 FRIDA Telephone (NCCAP) MAGALILIVIA Regino ([id number]) 1985 F Date Time Provider Department 03/19/22 [...] Date Reviewed: 03/10/2022 Reviewed by: Gil Ni APRN.PERSONNEL RESEARCH SCIENTIST - Fully Assessed Reason for Visit: No [...] Encounter Status:Closed by CORBIN [facility]E [facility] LIV[facility] NOYOLA ([id number]) 1985 F Date Time Provider Department 03/19/22 FINANCIAL NAVIGATOR JOHNY JORDANMARILOUChi During your visit today, we recorded the following information about you: Sparkle Chicas Deja [facility] 03/19/2022 4:48 PM Signed 1st report of treatment-Non oncology regimen (Venofer) No FA available for this treatment at this time. Allergies As of Date: 03/19/2022 Noted Allergy Reaction MORPHINE 06/20/2018 14 - Other: See Comments Comments: Spasms Date Reviewed: 03/10/2022 Reviewed by: Gil Ni APRN.PERSONNEL RESEARCH SCIENTIST - Fully Assessed Reason for Visit: Benefits Investigation [4438] Prescriptions as of 03/19/2022 - ALPRAZolam (XANAX) [...] of iron [K90.9] 10/27/2020 Encounter Status:Closed by [facility], SPARKLE Chicas on 03/19/22 [facility] 03-15-2022 CNPN Telephone (BK) LIVIA NOYOLA ([id number]) 1985 F Date Time Provider Department 03/15/22 [...] Date Reviewed: 03/10/2022 Reviewed by: Gil Ni APRN.PERSONNEL RESEARCH SCIENTIST - Fully Assessed Reason for Visit: Social [...] Status:Closed by SHARON SAAVEDRA on 03/15/22 Normal [facility] CBC W Auto Differential pane l (Bld)on 03-10-2022 Basophils (Bld) [#/Vol] 0.05 10*3/uL Normal <0.11 [facility] Comment on above: Order Comment: Speci men Type: BLOOD SPECIMEN Ordering Facility: [facility] Address: [address] [place] [address] Performed By: #### 5 7021-8 #### [facility] CLIA [id number] [address] [place] [address] 99583 Basophils/100 WBC (Bld) 0.8 % Normal [facility] Comment on above: Order Comment: Speci men Type: BLOOD SPECIMEN Ordering Facility: [facility] Address: [address] [place] [address] Performed By: #### 5 7021-8 #### [facility] CLIA [id number] [address] [place] [address] 93178 Differential cell count method Nom (Bld) Auto Normal [facility] Comment on above: Order Comment: Speci men Type: BLOOD SPECIMEN Ordering Facility: [facility] Address: [address] [place] [address] Performed By: #### 5 7021-8 #### [facility] CLIA [id number] [address] [place] [address] 26394 Eosinophils (Bld) [#/Vol] 0.15 10*3/uL Normal <0.46 [facility] Comment on above: Order Comment: Speci men Type: BLOOD SPECIMEN Ordering Facility: [facility] Address: [address] [place] [address] Performed By: #### 5 7021-8 #### [facility] CLIA [id number] [address] [place] [address] 93484 Eosinophils/100 WBC (Bld) 2.3 % Normal [facility] Comment on above: Order Comment: Speci men Type: BLOOD SPECIMEN Ordering Facility: [facility] Address: [address] [place] [address] Performed By: #### 5 7021-8 #### [facility] CLIA [id number] [address] [place] [address] 98710 Erythrocyte distribution width (RBC) [Ratio] 17.4 % High 11.5-15.0 [facility] Comment on above: Order Comment: Speci men Type: BLOOD SPECIMEN Ordering Facility: [facility] Address: [address] [place] [address] Performed By: #### 5 7021-8 #### [facility] CLIA [id number] [address] [place] [address] 56541 Hematocrit (Bld) [Volume fraction] 29.4 % Low 36.0-46.0 [facility] Comment on above: Order Comment: Speci men Type: BLOOD SPECIMEN Ordering Facility: [facility] Address: [address] [place] [address] Performed By: #### 5 7021-8 #### [facility] CLIA [id number] [address] [place] [address] 51680 Hemoglobin (Bld) [Mass/Vol] 8.5 g/dL Low 11.5-15.5 [facility] Comment on above: Order Comment: Speci men Type: BLOOD SPECIMEN Ordering Facility: [facility] Address: [address] [place] [address] Performed By: #### 5 7021-8 #### [facility] CLIA [id number] [address] [place], [place] [address] IMMATURE GRAN % 0.3 % Normal [facility] Comment on above: Order Comment: Speci men Type: BLOOD SPECIMEN Ordering Facility: [facility] Address: [address] [place] [address] Performed By: #### 5 7021-8 #### [facility] CLIA [id number] [address] [place] [address] 19875 IMMATURE GRAN ABS <0.03 Normal <0.10 [facility] Comment on above: Order Comment: Speci men Type: BLOOD SPECIMEN Ordering Facility: [facility] Address: [address] [place] [address] Performed By: #### 5 7021-8 #### [facility] CLIA [id number] [address] [place] [address] 27251 Lymphocytes (Bld) [#/Vol] 3.62 10*3/uL Normal 1.00-4.00 [facility] Comment on above: Order Comment: Speci men Type: BLOOD SPECIMEN Ordering Facility: [facility] Address: [address] [place] [address] Performed By: #### 5 7021-8 #### [facility] CLIA [id number] [address] [place] [address] 78776 Lymphocytes/100 WBC (Bld) 54.8 % Normal [facility] Comment on above: Order Comment: Speci men Type: BLOOD SPECIMEN Ordering Facility: [facility] Address: [address] [place] [address] Performed By: #### 5 7021-8 #### [facility] CLIA [id number] [address] [place] [address] 88153 MCH (RBC) [Entitic mass] 20.3 pg Low 26.0-34.0 [facility] Comment on above: Order Comment: Speci men Type: BLOOD SPECIMEN Ordering Facility: [facility] Address: [address] [place] [address] Performed By: #### 5 7021-8 #### [facility] CLIA [id number] [address] [place] [address] 38148 MCHC (RBC) [Mass/Vol] 28.9 g/dL Low 30.5-36.0 [facility] Comment on above: Order Comment: Speci men Type: BLOOD SPECIMEN Ordering Facility: [facility] Address: [address] [place] [address] Performed By: #### 5 7021-8 #### [facility] CLIA [id number] [address] [place] [address] 69396 MCV (RBC) [Entitic vol] 70.3 fL Low 80.0-100.0 [facility] Comment on above: Order Comment: Speci men Type: BLOOD SPECIMEN Ordering Facility: [facility] Address: [address] [place], [place] [address] Performed By: #### 5 7021-8 #### [facility] CLIA [id number] [address] [place] [address] 64441 Monocytes (Bld) [#/Vol] 0.38 10*3/uL Normal <0.87 [facility] Comment on above: Order Comment: Speci men Type: BLOOD SPECIMEN Ordering Facility: [facility] Address: [address] [place], [place] [address] Performed By: #### 5 7021-8 #### [facility] CLIA [id number] [address] [place] [address] 21600 Monocytes/100 WBC (Bld) 5.7 % Normal [facility] Comment on above: Order Comment: Speci men Type: BLOOD SPECIMEN Ordering Facility: [facility] Address: [address] [place], [place] [address] Performed By: #### 5 7021-8 #### [facility] CLIA [id number] [address] [place] [address] 36311 Neutrophils (Bld) [#/Vol] 2.39 10*3/uL Normal 1.45-7.50 [facility] Comment on above: Order Comment: Speci men Type: BLOOD SPECIMEN Ordering Facility: [facility] Address: [address] [place], [place] [address] Performed By: #### 5 7021-8 #### [facility] CLIA [id number] [address] [place] [address] 97679 Neutrophils/100 WBC (Bld) 36.1 % Normal [facility] Comment on above: Order Comment: Speci men Type: BLOOD SPECIMEN Ordering Facility: [facility] Address: [address] [place], [place] [address] Performed By: #### 5 7021-8 #### [facility] CLIA [id number] [address] [place] [address] 52005 Nucleated RBC (Bld) [#/Vol] 10*3/uL Normal <0.01 [facility] Comment on above: Order Comment: Speci men Type: BLOOD SPECIMEN Ordering Facility: [facility] Address: [address] [place], [place] [address] Performed By: #### 5 7021-8 #### [facility] CLIA [id number] [address] [place] [address] 64619 Nucleated RBC/100 WBC (Bld) [Ratio] 0.0 /100 WBC Normal [facility] Comment on above: Order Comment: Speci men Type: BLOOD SPECIMEN Ordering Facility: [facility] Address: [address] [place] [address] Performed By: #### 5 7021-8 #### [facility] CLIA [id number] [address] [place] [address] 60021 Platelet mean volume (Bld) [Entitic vol] 8.8 fL Low 9.0-12.7 [facility] Comment on above: Order Comment: Speci men Type: BLOOD SPECIMEN Ordering Facility: [facility] Address: [address] [place] [address] Performed By: #### 5 7021-8 #### [facility] CLIA [id number] [address] [place] [address] 32631 Platelets (Bld) [#/Vol] 419 10*3/uL High 150-400 [facility] Comment on above: Order Comment: Speci men Type: BLOOD SPECIMEN Ordering Facility: [facility] Address: [address] [place] [address] Performed By: #### 5 7021-8 #### [facility] CLIA [id number] [address] [place] [address] 17303 RBC (Bld) [#/Vol] 4.18 10*6/uL Normal 3.90-5.20 [facility] Comment on above: Order Comment: Speci men Type: BLOOD SPECIMEN Ordering Facility: [facility] Address: [address] [place] [address] Performed By: #### 5 7021-8 #### [facility] CLIA [id number] [address] [place] [address] 71168 WBC (Bld) [#/Vol] 6.61 10*3/uL Normal 3.70-11.00 [facility] Comment on above: Order Comment: Speci men Type: BLOOD SPECIMEN Ordering Facility: [facility] Address: [address], [place] [address] Performed By: #### 5 7021-8 #### [facility] CLIA [id number] [address] [place] [address] 40616 CNOVSPon 03-10-2022 CNOVSP Visit (SP) Office (HEMASA) LIVIA NOYOLA ([id number]) 1985 F Date Time Provider Department 03/10/22 2:00 PM GIL NI During your visit today, we recorded the following information about you: Temperature Pulse Respiration Blood pressure 97.9 degrees 95/minute 16/minute 130/75 Weight Height 83.4 kg 1.651 m Gil Ni APRN.CNP 03/10/2022 2:25 PM Signed NAME: Livia Noyola CLINIC NO.: [id number] DATE OF SERVICE: March 10, 2022 (Elements [...] 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 She works [...] with subsequent iron deficiency. Recent laboratories from [facility] [place] October 04, 2020 show hemoglobin of 11.6 [...] to chronic (more content not included)... Normal [facility] Comprehensive metabolic 2000 panelon 03-10-2022 Albumin [Mass/Vol] 4.0 g/dL Normal 3.9-4.9 [facility] Comment on above: Order Comment: Speci men Type: BLOOD SPECIMEN Ordering Facility: [facility] Address: [address] [place] [address] Performed By: #### 2 4323-8 #### [facility] CLIA [id number] [address] [place] [address] 65103 ALP [Catalytic activity/Vol] 55 U/L Normal 34-123 [facility] Comment on above: Order Comment: Speci men Type: BLOOD SPECIMEN Ordering Facility: [facility] Address: [address] [place] [address] Performed By: #### 2 4323-8 #### [facility] CLIA [id number] [address] [place] [address] ALT [Catalytic activity/Vol] 12 U/L Normal 7-38 [facility] Comment on above: Order Comment: Speci men Type: BLOOD SPECIMEN Ordering Facility: [facility] Address: [address] [address] Performed By: #### 2 4323-8 #### [facility] CLIA [id number] [address] [place] [address] Anion gap [Moles/Vol] 9 mmol/L Normal 9-18 [facility] Comment on above: Order Comment: Speci men Type: BLOOD SPECIMEN Ordering Facility: [facility] Address: [address] [address] Performed By: #### 2 4323-8 #### [facility] CLIA [id number] [address] [place] [address] 58326 AST [Catalytic activity/Vol] 14 U/L Normal 13-35 [facility] Comment on above: Order Comment: Speci men Type: BLOOD SPECIMEN Ordering Facility: [facility] Address: [address] [place], [place] [address] Performed By: #### 2 4323-8 #### [facility] CLIA [id number] [address] [place] [address] 04992 Bilirubin [Mass/Vol] 0.3 mg/dL Normal 0.2-1.3 [facility] Comment on above: Order Comment: Speci men Type: BLOOD SPECIMEN Ordering Facility: [facility] Address: [address] Performed By: #### 2 4323-8 #### [facility] CLIA [id number] [address] [place] [address] 71678 Calcium [Mass/Vol] 8.8 mg/dL Normal 8.5-10.2 [facility] Comment on above: Order Comment: Speci men Type: BLOOD SPECIMEN Ordering Facility: [facility] Address: [address] [place], [place] [address] Performed By: #### 2 4323-8 #### [facility] CLIA [id number] [address] [place] [address] 81212 Chloride [Moles/Vol] 105 mmol/L Normal 97-105 [facility] Comment on above: Order Comment: Speci men Type: BLOOD SPECIMEN Ordering Facility: [facility] Address: [address] [place] [address] Performed By: #### 2 4323-8 #### [facility] CLIA [id number] [address] [place] [address] 12113 CO2 [Moles/Vol] 24 mmol/L Normal 22-30 [facility] Comment on above: Order Comment: Speci men Type: BLOOD SPECIMEN Ordering Facility: [facility] Address: [address] [place] [address] Performed By: #### 2 4323-8 #### [facility] CLIA [id number] [address] [place] [address] 98524 Creatinine [Mass/Vol] 0.65 mg/dL Normal 0.58-0.96 [facility] Comment on above: Order Comment: Speci men Type: BLOOD SPECIMEN Ordering Facility: [facility] Address: [address] [place] [address] Performed By: #### 2 4323-8 #### [facility] CLIA [id number] [address] [place] [address] 36812 ESTIMATED GLOMERULAR FILTRATION RATE 118 mL/min/1.73m??? Normal >=60 [facility] Comment on above: Order Comment: Speci men Type: BLOOD SPECIMEN Ordering Facility: [facility] Address: [address] [place] [address] Result Comment: Shelley mated Glomerular Filtration Rate [...] GFR. Performed By: #### 2 4323-8 #### [facility] CLIA [id number] [address] [place] [address] 58117 Glucose [Mass/Vol] 109 mg/dL High 74-99 [facility] Comment on above: Order Comment: Roselyn conway Type: BLOOD SPECIMEN Ordering Facility: [facility] Address: [address] [place], [place] [address] Result Comment: The [place] Diabetes [employer] (ADA) provides guidance for cutoff [...] Standards of Medical Care in Diabetes 2016, [place] [employer]. Diabetes Care. 2016.39(Suppl 1). Performed By: #### 2 4323-8 #### [facility] CLIA [id number] [address] [place] [address] 94789 Potassium [Moles/Vol] 3.4 mmol/L Low 3.7-5.1 [facility] Comment on above: Order Comment: Roselyn conway Type: BLOOD SPECIMEN Ordering Facility: [facility] Address: [address] [place] [address] Performed By: #### 2 4323-8 #### [facility] CLIA [id number] [address] [place] [address] 62316 Protein [Mass/Vol] 6.5 g/dL Normal 6.3-8.0 [facility] Comment on above: Order Comment: Roselyn conway Type: BLOOD SPECIMEN Ordering Facility: [facility] Address: [address] [id number] Performed By: #### 2 4323-8 #### [facility] CLIA [id number] [address] [place] [address] Sodium [Moles/Vol] 138 mmol/L Normal 136-144 [facility] Comment on above: Order Comment: Speci men Type: BLOOD SPECIMEN Ordering Facility: [facility] Address: [address] [place] [address] Performed By: #### 2 4323-8 #### [facility] CLIA [id number] [address] [place] [address] 31196 Urea nitrogen [Mass/Vol] 8 mg/dL Normal 7-21 [facility] Comment on above: Order Comment: Speci men Type: BLOOD SPECIMEN Ordering Facility: [facility] Address: [address] [place] [address] Performed By: #### 2 4323-8 #### [facility] CLIA [id number] [address] [place] [address] 19100 Ferritin SerPl-mCncon 2021 Ferritin [Mass/Vol] 5.4 ng/mL Low 14.7-205.1 [facility] Comment on above: Order Comment: Speci men Type: BLOOD SPECIMEN Ordering Facility: [facility] Address: [address] [place] [address] Performed By: #### 5 0190-8, 2131-9, 2283-8, 6-4 #### [facility] CLIA [id number] [address] [place] [address] [place] Folate SerPl-mCncon 03-10-20 Folate [Mass/Vol] 8.7 ng/mL Normal >4.7 [facility] Comment on above: Order Comment: Speci men Type: BLOOD SPECIMEN Ordering Facility: [facility] Address: [address] [place] [address] Performed By: #### 5 0190-8, 2131-9, 2283-8, 6-4 #### [facility] CLIA [id number] [address] [place] [address] [place] Iron and Iron binding capaci ty panelon 03-10-2022 Iron [Mass/Vol] 17 ug/dL Low 41-186 [facility] Comment on above: Order Comment: Speci men Type: BLOOD SPECIMEN Ordering Facility: [facility] Address: [address] [place] [address] Performed By: #### 5 0190-8, 2131-9, 2283-8, 6-4 #### [facility] CLIA [id number] [address] [place] [address] [place] Iron binding capacity [Mass/Vol] 422 ug/dL High 232-386 [facility] Comment on above: Order Comment: Speci men Type: BLOOD SPECIMEN Ordering Facility: [facility] Address: [address] [place] [address] Performed By: #### 5 0190-8, 9, 2283-8, 6-4 #### [facility] CLIA [id number] [address] [place] [address] [place] Iron/TIBC [Molar ratio] 4.0 % Low 15.0-57.0 [facility] Comment on above: Order Comment: Speci men Type: BLOOD SPECIMEN Ordering Facility: [facility] Address: [address] [place], [place] [address] Performed By: #### 5 0190-8, 9, 2283-8, 6-4 #### [facility] CLIA [id number] [address] [place] [address] [place] Vit B12 SerPl-ncon 022 Cobalamin (Vitamin B12) [Mass/Vol] 367 pg/mL Normal 232-1245 [facility] Comment on above: Order Comment: Speci men Type: BLOOD SPECIMEN Ordering Facility: [facility] Address: [address] [place], [place] [id number] Performed By: #### 5 [id number], [id number], 2284-8, 2276-4 #### [facility] CLIA [id number] [address] [place], [place] [id number] [facility] CNPDeborah 02-18-2022 CNPN Telephone (HEMASA) LIVIA NOYOLA ([id number]) 1985 F Date Time Provider Department 02/18/22 [...] [D50.0] Order(s):CBC + DIFF [SQCBCDIF] Order #: [id number] FUTURE COMP METABOLIC PANEL [SQCMP] Order #: [id number] FUTURE IRON + TIBC [SQIRON] Order #: [id number] FUTURE FERRITIN BLD [SQFERR] Order #: [id number] FUTURE VITAMIN B12 BLOOD [SQB12] Order #: [id number] FUTURE FOLATE SERUM [SQSERFOL] Order #: [id number] FUTURE Prescriptions as of 02/20/2022 - ALPRAZolam [...] Status:Closed by [place] on 02/20/22 Normal [facility] Basophils Auto (Bld) [#/Vol] Ordered By: Jennifer Duran on 02-12-2022 Basophils (Bld) [#/Vol] 0.1 10*3/uL 0.0-0.2 [facility] Basophils/100 WBC Auto (Bld) Ordered By: Jennifer Duran on 02-12-2022 Basophils/100 WBC (Bld) 1.0 % . F [facility] Blood anisocytosis detection Ordered By: Jennifer Duran on 02-12-2022 Anisocytosis Ql (Bld) Moderate [facility] Blood hemoglobin measurement (mass/volume)Ordered By: Jennifer Duran on 02-12-2022 Hemoglobin (Bld) [Mass/Vol] 8.5 g/dL 11.8-15.4 [facility] Blood leukocytes automated c ount (number/volume)Ordered By: Jennifer Duran on 02-12-2022 WBC (Bld) [#/Vol] 5.9 10*3/uL 4.5-11.0 [facility] Body fluid albumin measureme nt (mass/volume)Ordered By: Jennifer Duran on 02-12-2022 Albumin (Body fld) [Mass/Vol] 3.7 g/dL 3.2-5.5 [facility] CT biopsyOrdered By: Jennifer avila on 02-12-2022 Transferrin [Mass/Vol] 356 mg/dL 180-380 [facility] Creatinine and Glomerular fi ltration rate.predicted panel (S/P/Bld)Ordered By: Jennifer Duran on 02-12-2022 Creatinine [Mass/Vol] 0.72 mg/dL 0.44-1.03 [facility] Eosinophils Auto (Bld) [#/Vo l]Ordered By: Jennifer Duran on 02-12-2022 Eosinophils (Bld) [#/Vol] 0.1 10*3/uL 0.0-0.45 [facility] Eosinophils/100 WBC Auto (Bl d)Ordered By: Jennifer Duran on 02-12-2022 Eosinophils/100 WBC (Bld) 2.2 % . [facility] Erythrocyte distribution wid th Auto (RBC) [Ratio]Ordered By: Jennifer Duran on 02-12-2022 Erythrocyte distribution width (RBC) [Ratio] 17.3 % 11.9-15.3 [facility] Estimated glomerular filtrat ion rate (GFR) non- AmericanOrdered By: Jennifer Duran on 02-12-2022 GFR/1.73 sq M.predicted among non-blacks MDRD (S/P/Bld) [Vol rate/Area] > 60 mL/Min [facility] Ferritin [Mass/volume] in Se rum or PlasmaOrdered By: Jennifer Duran on 02-12-2022 Ferritin [Mass/Vol] 5.1 ng/mL 11-306.8 [facility] Globulin Calc (S) [Mass/Vol] Ordered By: Jennifer Duran on 02-12-2022 Globulin (S) [Mass/Vol] 2.9 g/dL [facility] Hematocrit Auto (Bld) [Volum e fraction]Ordered By: Jennifer Duran on 02-12-2022 Hematocrit (Bld) [Volume fraction] 27.9 % 34.0-46.4 [facility] Hypochromia detectionOrdered By: Jennifer Duran on 02-12-2022 Hypochromia Ql (Bld) Slight [facility] Iron [Mass/volume] in Serum or PlasmaOrdered By: Jennifer Duran on 02-12-2022 Iron [Mass/Vol] 11 ug/dL 40-150 [facility] Iron binding capacity [Mass/ volume] in Serum or PlasmaOrdered By: Jennifer Duran on 02-12-2022 Iron binding capacity [Mass/Vol] 498 ug/dL 255-450 [facility] Iron saturation [Mass Fracti on] in Serum or PlasmaOrdered By: Jennifer Duran on 02-12-2022 Iron saturation [Mass fraction] 2.0 % 20-50 [facility] Laboratory - Hematology and Cell countsOrdered By: Jennifer Duran on 02-12-2022 Nucleated RBC/100 WBC (Bld) [Ratio] 0.3 % 0-0.5 [facility] Lymphocytes Auto (Bld) [#/Vo l]Ordered By: Jennifer Duran on 02-12-2022 Lymphocytes (Bld) [#/Vol] 3.0 10*3/uL 1.00-4.8 [facility] Lymphocytes/100 WBC Auto (Bl d)Ordered By: Jennifer Duran on 02-12-2022 Lymphocytes/100 WBC (Bld) 50.8 % . [facility] MCH Auto (RBC) [Entitic mass ]Ordered By: Jennifer Duran on 02-12-2022 MCH (RBC) [Entitic mass] 20.1 pg 24.7-34.3 [facility] MCHC Auto (RBC) [Mass/Vol]Or dered By: Jennifer Duran on 02-12-2022 MCHC (RBC) [Mass/Vol] 30.4 g/dL 32.0-35.0 [facility] MCV Auto (RBC) [Entitic vol] Ordered By: Jennifer Duran on 02-12-2022 MCV (RBC) [Entitic vol] 66.3 fL 80-100 [facility] Monocytes Auto (Bld) [#/Vol] Ordered By: Jennifer Duran on 02-12-2022 Monocytes (Bld) [#/Vol] 0.3 10*3/uL 0.0-0.8 [facility] Monocytes/100 WBC Auto (Bld) Ordered By: Jennifer Duran on 02-12-2022 Monocytes/100 WBC (Bld) 5.7 % . F [facility] Neutrophils Auto (Bld) [#/Vo l]Ordered By: Jennifer Duran on 02-12-2022 Neutrophils (Bld) [#/Vol] 2.4 10*3/uL 1.8-7.7 [facility] Neutrophils/100 WBC Auto (Bl d)Ordered By: Jennifer Duran on 02-12-2022 Neutrophils/100 WBC (Bld) 40.3 % . [facility] No Panel InformationOrdered By: Jennifer Duran on 02-12-2022 Estimated GFR () > 60 mL/Min [facility] Comment on above: GFR estimated refere nce range: According to KDOQI guidelines, <60 ml/min/1.73m2 is sufficient to diagnose a patient with chronic kidney disease. Microcytosis Moderate [facility] Pharmacy Creatinine Clearance (Chem N/A [facility] Platelet Estimate Normal Normal [facility] Platelet Morphology Comment Normal Normal [facility] Platelet mean volume Auto (B ld) [Entitic vol]Ordered By: Jennifer Duran on 02-12-2022 Platelet mean volume (Bld) [Entitic vol] 8.1 fL 6.3-10.7 [facility] Platelets Auto (Bld) [#/Vol] Ordered By: Jennifer Duran on 02-12-2022 Platelets (Bld) [#/Vol] 459 10*3/uL 150-450 [facility] Protein [Mass/volume] in Ser um or PlasmaOrdered By: Jennifer Duran on 02-12-2022 Protein [Mass/Vol] 6.6 g/dL 6.1-7.9 [facility] RBC Auto (Bld) [#/Vol]Ordere d By: Jennifer Duran on 02-12-2022 RBC (Bld) [#/Vol] 4.20 10*6/uL 3.60-5.00 [facility] RBC morphologyOrdered By: Pool Duran on 02-12-2022 RBC morphology finding Nom (Bld) N/A [facility] Serum or plasma alanine syed otransferase measurement without P-5'-P (enzymatic activiOrdered By: Jennifer Duran on 02-12-2022 ALT No additional P-5'-P [Catalytic activity/Vol] 69 U/L 10-60 [facility] Serum or plasma albumin/glob ulin mass ratioOrdered By: Jennifer Duran on 02-12-2022 Albumin/Globulin [Mass ratio] 1.3 {ratio} [facility] Serum or plasma alkaline zeeshan sphatase measurement (enzymatic activity/volume)Ordered By: Jennifer Duran on 02-12-2022 ALP [Catalytic activity/Vol] 73 U/L 32-92 [facility] Serum or plasma anion gap de terminationOrdered By: Jennifer Duran on 02-12-2022 Anion gap [Moles/Vol] 13.2 mmol/L 6.0-15.0 [facility] Serum or plasma aspartate am inotransferase measurement (enzymatic activity/volume)Ordered By: Jennifer Duran on 02-12-2022 AST [Catalytic activity/Vol] 42 U/L 10-42 [facility] Serum or plasma calcium donaldo urement (mass/volume)Ordered By: Jennifer Duran on 02-12-2022 Calcium [Mass/Vol] 9.3 mg/dL 8.2-10.2 [facility] Serum or plasma chloride claudia surement (moles/volume)Ordered By: Jennifer Duran on 02-12-2022 Chloride [Moles/Vol] 101 mmol/L 95-114 [facility] Serum or plasma glucose donaldo urement (mass/volume)Ordered By: Jennifer Duran on 02-12-2022 Glucose [Mass/Vol] 98 mg/dL 70-100 [facility] Comment on above: ADA recommended refe [...] on 02-12-2022 Potassium [Moles/Vol] 3.6 mmol/L 3.5-5.1 [facility] Serum or plasma sodium measu rement (moles/volume)Ordered By: Jennifer Duran on 02-12-2022 Sodium [Moles/Vol] 136 mmol/L 136-146 [facility] Serum or plasma total biliru bin measurement (mass/volume)Ordered By: Jennifer Duran on 02-12-2022 Bilirubin [Mass/Vol] 0.4 mg/dL 0.3-1.2 [facility] Serum or plasma total carbon dioxide measurement (moles/volume)Ordered By: Jennifer Duran on 02-12-2022 CO2 [Moles/Vol] 25.4 mmol/L 22.0-30.0 [facility] Serum or plasma urea nitroge n measurement (mass/volume)Ordered By: Jennifer Duran on 02-12-2022 Urea nitrogen [Mass/Vol] 4 mg/dL 9- [facility] Basophils Auto (Bld) [#/Vol] Ordered By: Kendra Persaud on 09-14-2021 Basophils (Bld) [#/Vol] 0.1 10*3/uL 0.0-0.2 [facility] Basophils/100 WBC Auto (Bld) Ordered By: Kendra Persaud on 09-14-2021 Basophils/100 WBC (Bld) 1.3 % F [facility] Bilirubin Test strip Ql (U)O rdered By: Kendra Persaud on 09-14-2021 Bilirubin Ql (U) Negative Negative [facility] Blood hemoglobin measurement (mass/volume)Ordered By: Kendra Persaud on 09-14-2021 Hemoglobin (Bld) [Mass/Vol] 9.7 g/dL 11.8-15.4 [facility] Blood leukocytes automated c ount (number/volume)Ordered By: Kendra Persaud on 09-14-2021 WBC (Bld) [#/Vol] 8.9 10*3/uL 4.5-11.0 [facility] Body fluid albumin measureme nt (mass/volume)Ordered By: Kendra Persaud on 09-14-2021 Albumin (Body fld) [Mass/Vol] 3.7 g/dL 3.2-5.5 [facility] Color Auto (U)Ordered By: Jazmin Persaud on 09-14-2021 Color (U) Yellow Yellow [facility] Creatinine and Glomerular fi ltration rate.predicted panel (S/P/Bld)Ordered By: Kendra Persaud on 09-14-2021 Creatinine [Mass/Vol] 0.71 mg/dL 0.44-1.03 [facility] Eosinophils Auto (Bld) [#/Vo l]Ordered By: Kendra Persaud on 09-14-2021 Eosinophils (Bld) [#/Vol] 0.0 10*3/uL 0.0-0.45 [facility] Eosinophils/100 WBC Auto (Bl d)Ordered By: Kendra Persaud on 09-14-2021 Eosinophils/100 WBC (Bld) 0.4 % [facility] Erythrocyte distribution wid th Auto (RBC) [Ratio]Ordered By: Kendra Persaud on 09-14-2021 Erythrocyte distribution width (RBC) [Ratio] 17.0 % 11.9-15.3 [facility] Estimated glomerular filtrat ion rate (GFR) non- AmericanOrdered By: Kendra Persaud on 09-14-2021 GFR/1.73 sq M.predicted among non-blacks MDRD (S/P/Bld) [Vol rate/Area] > 60 mL/Min [facility] Globulin Calc (S) [Mass/Vol] Ordered By: Kendra Persaud on 09-14-2021 Globulin (S) [Mass/Vol] 3.2 g/dL [facility] HCG ( test) IA.rapi d Ql (U)Ordered By: Kendra Persaud on 09-14-2021 HCG ( test) Ql (U) Negative [facility] Hematocrit Auto (Bld) [Volum e fraction]Ordered By: Kendra Persaud on 09-14-2021 Hematocrit (Bld) [Volume fraction] 31.9 % 34.0-46.4 [facility] Ketones Auto test strip (U) [Mass/Vol]Ordered By: Kendra Persaud on 09-14-2021 Ketones (U) [Mass/Vol] Negative Negative [facility] - Chemistry and C hemistry - challengeOrdered By: Kendra Persaud on 09-14-2021 Lipase [Catalytic activity/Vol] 36.0 U/L 22-51 [facility] Laboratory - Hematology and Cell countsOrdered By: Kendra Persaud on 09-14-2021 Nucleated RBC/100 WBC (Bld) [Ratio] 0.0 % 0-0.5 [facility] Lymphocytes Auto (Bld) [#/Vo l]Ordered By: Kendra Persaud on 09-14-2021 Lymphocytes (Bld) [#/Vol] 4.1 10*3/uL 1.00-4.8 [facility] Lymphocytes/100 WBC Auto (Bl d)Ordered By: Kendra Persaud on 09-14-2021 Lymphocytes/100 WBC (Bld) 45.7 % [facility] MCH Auto (RBC) [Entitic mass ]Ordered By: Kendra Persaud on 09-14-2021 MCH (RBC) [Entitic mass] 21.3 pg 24.7-34.3 [facility] MCHC Auto (RBC) [Mass/Vol]Or dered By: Kendra Persaud on 09-14-2021 MCHC (RBC) [Mass/Vol] 30.4 g/dL 32.0-35.0 [facility] MCV Auto (RBC) [Entitic vol] Ordered By: Kendra Persaud on 09-14-2021 MCV (RBC) [Entitic vol] 70.0 fL 80-100 [facility] Monocytes Auto (Bld) [#/Vol] Ordered By: Kendra Persaud on 09-14-2021 Monocytes (Bld) [#/Vol] 0.7 10*3/uL 0.0-0.8 [facility] Monocytes/100 WBC Auto (Bld) Ordered By: Kendra Persaud on 09-14-2021 Monocytes/100 WBC (Bld) 7.8 % F [facility] Neutrophils Auto (Bld) [#/Vo l]Ordered By: Kendra Persaud on 09-14-2021 Neutrophils (Bld) [#/Vol] 4.0 10*3/uL 1.8-7.7 [facility] Neutrophils/100 WBC Auto (Bl d)Ordered By: Kendra Persaud on 09-14-2021 Neutrophils/100 WBC (Bld) 44.8 % [facility] Nitrite Test strip Ql (U)Ord ered By: Kendra Persaud on 09-14-2021 Nitrite Ql (U) Negative Negative [facility] No Panel InformationOrdered By: Kendra Persaud on 09-14-2021 Estimated GFR () > 60 mL/Min [facility] Comment on above: GFR estimated refere nce range: According to KDOQI guidelines, <60 ml/min/1.73m2 is sufficient to diagnose a patient with chronic kidney disease. Pharmacy Creatinine Clearance (Chem 119.44 [facility] Platelet mean volume Auto (B ld) [Entitic vol]Ordered By: Kendra Persaud on 09-14-2021 Platelet mean volume (Bld) [Entitic vol] 7.4 fL 6.3-10.7 [facility] Platelets Auto (Bld) [#/Vol] Ordered By: Kendra Persaud on 09-14-2021 Platelets (Bld) [#/Vol] 604 10*3/uL 150-450 [facility] Protein Auto test strip (U) [Mass/Vol]Ordered By: Kendra Persaud on 09-14-2021 Protein (U) [Mass/Vol] Negative Negative [facility] Protein [Mass/volume] in Ser um or PlasmaOrdered By: Kendra Persaud on 09-14-2021 Protein [Mass/Vol] 6.9 g/dL 6.1-7.9 [facility] RBC Auto (Bld) [#/Vol]Ordere d By: Kendra Persaud on 09-14-2021 RBC (Bld) [#/Vol] 4.55 10*6/uL 3.60-5.00 [facility] Serum or plasma alanine syed otransferase measurement without P-5'-P (enzymatic activiOrdered By: Kendra Persaud on 09-14-2021 ALT No additional P-5'-P [Catalytic activity/Vol] 16 U/L 10-60 [facility] Serum or plasma albumin/glob ulin mass ratioOrdered By: Kendra Persaud on 09-14-2021 Albumin/Globulin [Mass ratio] 1.2 {ratio} [facility] Serum or plasma alkaline zeeshan sphatase measurement (enzymatic activity/volume)Ordered By: Kendra Persaud on 09-14-2021 ALP [Catalytic activity/Vol] 48 U/L 32-92 [facility] Serum or plasma aspartate am inotransferase measurement (enzymatic activity/volume)Ordered By: Kendra Persaud on 09-14-2021 AST [Catalytic activity/Vol] 17 U/L 10-42 [facility] Serum or plasma calcium donaldo urement (mass/volume)Ordered By: Kendra Persaud on 09-14-2021 Calcium [Mass/Vol] 9.0 mg/dL 8.2-10.2 [facility] Serum or plasma chloride claudia surement (moles/volume)Ordered By: Kendra Persaud on 09-14-2021 Chloride [Moles/Vol] 105 mmol/L 95-114 [facility] Serum or plasma glucose donaldo urement (mass/volume)Ordered By: Kendra Persaud on 09-14-2021 Glucose [Mass/Vol] 94 mg/dL 70-100 [facility] Comment on above: ADA recommended refe rence rangeRandom Glucose Reference Range is dependent on time and content of last meal. Glucose of more than 200 mg/dL in a nonstressed, ambulatory subject supports the diagnosis of Diabetes Mellitus. Serum or plasma potassium me asurement (moles/volume)Ordered By: Kendra Persaud on 09-14-2021 Potassium [Moles/Vol] 3.1 mmol/L 3.5-5.1 [facility] Serum or plasma sodium measu rement (moles/volume)Ordered By: Kendra Persaud on 09-14-2021 Sodium [Moles/Vol] 139 mmol/L 136-146 [facility] Serum or plasma total biliru bin measurement (mass/volume)Ordered By: Kendra Persaud on 09-14-2021 Bilirubin [Mass/Vol] 0.5 mg/dL 0.3-1.2 [facility] Serum or plasma total carbon dioxide measurement (moles/volume)Ordered By: Kendra Persaud on 09-14-2021 CO2 [Moles/Vol] 23.7 mmol/L 22.0-30.0 [facility] Serum or plasma urea nitroge n measurement (mass/volume)Ordered By: Kendra Persaud on 09-14-2021 Urea nitrogen [Mass/Vol] 4 mg/dL 9-23 [facility] Specific gravity Auto test s trip (U) [Rel density]Ordered By: Kendra Persaud on 09-14-2021 Specific gravity (U) [Rel density] 1.004 1.001-1.030 [facility] Urine clarity by refractomet ry automatedOrdered By: Kendra Persaud on 09-14-2021 Clarity Refractometry automated (U) Clear Clear [facility] Urine glucose measurement by automated test strip (mass/volume)Ordered By: Kendra Persaud on 09-14-2021 Glucose Auto test strip (U) [Mass/Vol] Normal mg/dL Normal [facility] Urine hemoglobin detection b y automated test stripOrdered By: Kendra Persaud on 09-14-2021 Hemoglobin Auto test strip Ql (U) Negative Negative [facility] Urine leukocyte esterase det ection by automated test stripOrdered By: Kendra Persaud on 09-14-2021 Leukocyte esterase Auto test strip Ql (U) Negative Negative [facility] Urobilinogen Auto test strip (U) [Mass/Vol]Ordered By: Kendra Persaud on 09-14-2021 Urobilinogen (U) [Mass/Vol] Normal mg/dL Normal [facility] pH Auto test strip (U)Ordere d By: Kendra Persaud on 09-14-2021 pH (U) 6.5 [pH] 5.0-9.0 [facility] Basophils Auto (Bld) [#/Vol] Ordered By: Augustus Santiago on 07-04-2021 Basophils (Bld) [#/Vol] 0.1 10*3/uL 0.0-0.2 [facility] Basophils/100 WBC Auto (Bld) Ordered By: Augustus Santiago on 07-04-2021 Basophils/100 WBC (Bld) 0.9 % [facility] Blood hemoglobin measurement (mass/volume)Ordered By: Augustus Santiago on 07-04-2021 Hemoglobin (Bld) [Mass/Vol] 10.2 g/dL 11.8-15.4 [facility] Blood leukocytes automated c ount (number/volume)Ordered By: Augustus Santiago on 07-04-2021 WBC (Bld) [#/Vol] 6.6 10*3/uL 4.5-11.0 [facility] CT biopsyOrdered By: Augustus powell on 07-04-2021 Transferrin [Mass/Vol] 360 mg/dL 180-380 [facility] Creatinine and Glomerular fi ltration rate.predicted panel (S/P/Bld)Ordered By: Augustus Santiago on 07-04-2021 Creatinine [Mass/Vol] 0.69 mg/dL 0.44-1.03 [facility] Eosinophils Auto (Bld) [#/Vo l]Ordered By: Augustus Santiago on 07-04-2021 Eosinophils (Bld) [#/Vol] 0.1 10*3/uL 0.0-0.45 [facility] Eosinophils/100 WBC Auto (Bl d)Ordered By: Augustus Santiago on 07-04-2021 Eosinophils/100 WBC (Bld) 1.2 % [facility] Erythrocyte distribution wid th Auto (RBC) [Ratio]Ordered By: Augustus Santiago on 07-04-2021 Erythrocyte distribution width (RBC) [Ratio] 17.2 % 11.9-15.3 [facility] Estimated glomerular filtrat ion rate (GFR) non- AmericanOrdered By: Augustus Santiago on 07-04-2021 GFR/1.73 sq M.predicted among non-blacks MDRD (S/P/Bld) [Vol rate/Area] > 60 mL/Min [facility] Hematocrit Auto (Bld) [Volum e fraction]Ordered By: Augustus Santiago on 07-04-2021 Hematocrit (Bld) [Volume fraction] 32.0 % 34.0-46.4 [facility] Iron [Mass/volume] in Serum or PlasmaOrdered By: Augustus Santiago on 07-04-2021 Iron [Mass/Vol] 10 ug/dL 40-150 [facility] Iron binding capacity [Mass/ volume] in Serum or PlasmaOrdered By: Augustus Santiago on 07-04-2021 Iron binding capacity [Mass/Vol] 504 ug/dL 255-450 [facility] Iron saturation [Mass Fracti on] in Serum or PlasmaOrdered By: Augustus Santiago on 07-04-2021 Iron saturation [Mass fraction] 1.0 % 20-50 [facility] Laboratory - Hematology and Cell countsOrdered By: Augustus Santiago on 07-04-2021 Nucleated RBC/100 WBC (Bld) [Ratio] 0.0 % 0-0.5 [facility] Lymphocytes Auto (Bld) [#/Vo l]Ordered By: Augustus Santiago on 07-04-2021 Lymphocytes (Bld) [#/Vol] 1.9 10*3/uL 1.00-4.8 [facility] Lymphocytes/100 WBC Auto (Bl d)Ordered By: Augustus Santiago on 07-04-2021 Lymphocytes/100 WBC (Bld) 28.4 % [facility] MCH Auto (RBC) [Entitic mass ]Ordered By: Augustus Santiago on 07-04-2021 MCH (RBC) [Entitic mass] 22.7 pg 24.7-34.3 [facility] MCHC Auto (RBC) [Mass/Vol]Or dered By: Augustus Santiago on 07-04-2021 MCHC (RBC) [Mass/Vol] 31.9 g/dL 32.0-35.0 [facility] MCV Auto (RBC) [Entitic vol] Ordered By: Augustus Santiago on 07-04-2021 MCV (RBC) [Entitic vol] 71.3 fL 80-100 [facility] Monocytes Auto (Bld) [#/Vol] Ordered By: Augustus Santiago on 07-04-2021 Monocytes (Bld) [#/Vol] 0.5 10*3/uL 0.0-0.8 [facility] Monocytes/100 WBC Auto (Bld) Ordered By: Augustus Santiago on 07-04-2021 Monocytes/100 WBC (Bld) 7.6 % [facility] Neutrophils Auto (Bld) [#/Vo l]Ordered By: Augustus Santiago on 07-04-2021 Neutrophils (Bld) [#/Vol] 4.1 10*3/uL 1.8-7.7 [facility] Neutrophils/100 WBC Auto (Bl d)Ordered By: Augustus Santiago on 07-04-2021 Neutrophils/100 WBC (Bld) 61.9 % [facility] No Panel InformationOrdered By: Augustus Santiago on 07-04-2021 D-Dimer Quantitative (PE/DVT) < 200 ng/mL 0-243 [facility] Comment on above: The reference range [...] conditions. Estimated GFR () > 60 mL/Min [facility] Comment on above: GFR estimated refere nce range: According to KDOQI guidelines, <60 ml/min/1.73m2 is sufficient to diagnose a patient with chronic kidney disease. Pharmacy Creatinine Clearance (Chem N/A [facility] Platelet mean volume Auto (B ld) [Entitic vol]Ordered By: Augustus Santiago on 07-04-2021 Platelet mean volume (Bld) [Entitic vol] 7.9 fL 6.3-10.7 [facility] Platelets Auto (Bld) [#/Vol] Ordered By: Augustus Santiago on 07-04-2021 Platelets (Bld) [#/Vol] 457 10*3/uL 150-450 [facility] RBC Auto (Bld) [#/Vol]Ordere d By: Augustus Santiago on 07-04-2021 RBC (Bld) [#/Vol] 4.48 10*6/uL 3.60-5.00 [facility] Serum or plasma calcium donaldo urement (mass/volume)Ordered By: Augustus Santiago on 07-04-2021 Calcium [Mass/Vol] 8.9 mg/dL 8.2-10.2 [facility] Serum or plasma chloride claudia surement (moles/volume)Ordered By: Augustus Santiago on 07-04-2021 Chloride [Moles/Vol] 105 mmol/L 95-114 [facility] Serum or plasma glucose donaldo urement (mass/volume)Ordered By: Augustus Santiago on 07-04-2021 Glucose [Mass/Vol] 110 mg/dL 70-100 [facility] Comment on above: ADA recommended refe rence rangeRandom Glucose Reference Range is dependent on time and content of last meal. Glucose of more than 200 mg/dL in a nonstressed, ambulatory subject supports the diagnosis of Diabetes Mellitus. Serum or plasma potassium me asurement (moles/volume)Ordered By: Augustus Santiago on 07-04-2021 Potassium [Moles/Vol] 3.5 mmol/L 3.5-5.1 [facility] Serum or plasma sodium measu rement (moles/volume)Ordered By: Augustus Santiago on 07-04-2021 Sodium [Moles/Vol] 136 mmol/L 136-146 [facility] Serum or plasma total carbon dioxide measurement (moles/volume)Ordered By: Augustus Santiago on 07-04-2021 CO2 [Moles/Vol] 23.0 mmol/L 22.0-30.0 [facility] Serum or plasma urea nitroge n measurement (mass/volume)Ordered By: Augustus Santiago on 07-04-2021 Urea nitrogen [Mass/Vol] 5 mg/dL 9-23 [facility] Cardiac Stress Teston 2020 Cardiac Stress Test [address], [address] [place] [address] TRANSTHORACIC ECHOCARDIOGRAM REPORT Patient Name: LIVIA Alfredo Physician: [id number] Raphael Alas MD Study Date: 08/06/2020 Referring Physician: [id number] ANNA CANTU MRN/PID: [id number] PCP: Jennifer Duran Accession/Order#: [id number] Department Location: [facility] Date of : 1985 Fellow: Gender: F Nurse: Admit 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: Fireworks Inspector: Josephine Newton RDCS, T Height: 165.10 cm CC Report to: Weight: 88.00 kg Study Type: Echocardiogram BSA: 1.95 m2 Diagnosis/ICD: R06.00-Dyspnea, unspecified; R00.0-Tachycardia, unspecified Indication: Obesity, Family History of CAD Procedure/CPT: Echo Complete w Full [id number] Study Detail: The following Echo studies were [...] 0.9 m/s (0.6-0.9m/s) PV Max P.0 mmHg [id number] Raphael Alas MD Electronically signed on 08/07/2020 at 4:26:59 PM Final Normal [facility] Vital Signs Date Time Vital Sign Value Performing Clinician Facility 01-22-2024 [id number] Body height 165.1 cm Eren Camejo DO Work Phone: [facility] 01-22-2024 [id number] Body mass index (BMI) [Ratio] 29.95 kg/m2 Eren Camejo DO Work Phone: [facility] 01-22-2024 12:13-0400 Body temperature 98.71 [degF] Eren Camejo DO Work Phone: [facility] 01-22-2024 12:13-0400 Body weight 81.65 kg [facility] 01-22-2024 12:13-0400 Diastolic blood pressure 92 mm[Hg] Eren Camejo DO Work Phone: [facility] [employer] 01-22-2024 12:13-0400 Heart rate 109 /min E[facility]jo DO [facility] 01-22-2024 12:13-0400 Respiratory rate 18 /min Eren [facility]amejo DO [facility] 01-22-2024 12:13-0400 SaO2% (BldA) [Mass fraction] 100 % Eren [facility]amejo DO [facility] 01-22-2024 12:13-0400 Systolic blood pressure 152 mm[Hg] Eren [facility]amejo DO [facility] 01-19-2024 11:18-0400 Body height 165.1 cm DO Jennifer Kendallivelisse Work Phone: [facility] 01-19-2024 11:18-0400 Body mass index (BMI) [Ratio] 31.9 kg/m2 DO Jennifer Kendallivelisse Work Phone: [facility] 01-19-2024 11:18-0400 Body temperature 98.2 [degF] DO Jennifer Duran Work Phone: [facility] 01-19-2024 11:18-0400 Body weight 87.08 kg DO Jennifer Kendallivelisse Work Phone: [facility] 01-19-2024 11:18-0400 Diastolic blood pressure 82 mm[Hg] DO Jennifer Duran Work Phone: [facility] 01-19-2024 11:18-0400 Heart rate 102 /min DO Jennifer Duran Work Phone: [facility] 01-19-2024 11:18-0400 Respiratory rate 18 /min DO Jennifer Duran Work Phone: [facility] 01-19-2024 11:18-0400 SaO2% (BldA) [Mass fraction] 98 % DO Jennifer Duran Work Phone: [facility] 01-19-2024 11:18-0400 Systolic blood pressure 122 mm[Hg] DO Jennifer Duran Work Phone: [facility] 11-08-2023 14:03-0400 Body height 165.1 cm DO Jennifer Duran Work Phone: [facility] 11-08-2023 14:03-0400 Body temperature 98.1 [degF] DO Jennifer Duran Work Phone: [facility] 11-08-2023 14:03-0400 Body weight 82.85 kg DO Jennifer Duran Work Phone: [facility] 11-08-2023 14:03-0400 Diastolic blood pressure 77 mm[Hg] DO Jennifer Duran Work Phone: [facility] 11-08-2023 14:03-0400 Heart rate 86 /min DO Jennifer Duran Work Phone: [facility] 11-08-2023 14:03-0400 Respiratory rate 16 /min DO Jennifer Duran Work Phone: [facility] 11-08-2023 14:03-0400 SaO2% (BldA) [Mass fraction] 100 % DO Jennifer Duran Work Phone: [facility] 11-08-2023 14:03-0400 Systolic blood pressure 142 mm[Hg] DO Jennifer Duran Work Phone: [facility] 11-08-2023 11:56-0400 Body height 165.1 cm Eren Camejo DO Work Phone: [facility] 11-08-2023 11:56-0400 Body mass index (BMI) [Ratio] 30.45 kg/m2 Eren Camejo DO Work Phone: [facility] 11-08-2023 11:56-0400 Body temperature 97.81 [degF] Eren [facility]amejo DO [facility] 11-08-2023 11:56-0400 Body weight 83.01 kg Eren Camejo DO [facility] 11-08-2023 11:56-0400 Diastolic blood pressure 86 mm[Hg] Eren [facility]amejo DO [facility] 11-08-2023 11:56-0400 Heart rate 100 /min Eren Camejo DO [facility] Phone[facility] 11-08-2023 11:56-0400 Respiratory rate 18 /min Eren Camejo DO [facility] 11-08-2023 11:56-0400 SaO2% (BldA) [Mass fraction] 99 % Eren Camejo DO [facility] 11-08-2023 11:56-0400 Systolic blood pressure 133 mm[Hg] Eren Camejo DO Work Phone: [facility] [employer] 09-30-2023 02:09-0400 Diastolic blood pressure 89 mm[Hg] Ritesh Ivana [facility] 09-30-2023 02:09-0400 Heart rate 124 /min Ritesh Ivana [facility] 09-30-2023 02:09-0400 Mean blood pressure 109 mm[Hg] Ritesh Ivana [facility] 09-30-2023 02:09-0400 Respiratory rate 20 /min Ritesh Ivana [facility] 09-30-2023 02:09-0400 SaO2% (BldA) [Mass fraction] 98 % Ritesh Ivana [facility] 09-30-2023 02:09-0400 Systolic blood pressure 149 mm[Hg] Ritesh Ivana [facility] 09-30-2023 01:00-0400 Diastolic blood pressure 82 mm[Hg] Ritesh Ivana [facility] 09-30-2023 01:00-0400 Heart rate 118 /min Ritesh Ivana [facility] 09-30-2023 01:00-0400 Mean blood pressure 104 mm[Hg] Ritesh Ivana [facility] 09-30-2023 01:00-0400 SaO2% (BldA) [Mass fraction] 99 % Ritesh Ivana [facility] 09-30-2023 01:00-0400 Systolic blood pressure 147 mm[Hg] Ritesh Ivana [facility] 09-29-2023 23:40-0400 Body temperature 97.7 [degF] Ritesh Ivana [facility] 09-29-2023 23:40-0400 Diastolic blood pressure 92 mm[Hg] Ritesh Ivana [facility] 09-29-2023 23:40-0400 Heart rate 139 /min Ritesh Ivana [facility] 09-29-2023 23:40-0400 Respiratory rate 20 /min Ritesh Ivana [facility] 09-29-2023 23:40-0400 SaO2% (BldA) [Mass fraction] 100 % Ritesh Ivana [facility] 09-29-2023 23:40-0400 Systolic blood pressure 144 mm[Hg] Ritesh Viana [facility] 09-26-2023 18:00-0400 Heart rate 119 /min Konstantin Zohaib [facility] 09-26-2023 18:00-0400 SaO2% (BldA) [Mass fraction] 96 % Konstantin Warde [facility] 09-26-2023 17:30-0400 Diastolic blood pressure 124 mm[Hg] Konstantin Warde [facility] 09-26-2023 17:30-0400 Heart rate 105 /min Konstantin Zohaib [facility] 09-26-2023 17:30-0400 Mean blood pressure 129 mm[Hg] Konstantin Zohaib [facility] 09-26-2023 17:30-0400 SaO2% (BldA) [Mass fraction] 100 % Konstantin Warde [facility] 09-26-2023 17:30-0400 Systolic blood pressure 139 mm[Hg] Konstantin Zohaib [facility] 09-26-2023 16:48-0400 Diastolic blood pressure 82 mm[Hg] Konstantin Warde [facility] 09-26-2023 16:48-0400 Heart rate 126 /min Konstantin Warde [facility] 09-26-2023 16:48-0400 Mean blood pressure 101 mm[Hg] Konstantin Warde [facility] 09-26-2023 16:48-0400 Respiratory rate 18 /min Konstantin Zohaib [facility] 09-26-2023 16:48-0400 SaO2% (BldA) [Mass fraction] 100 % Konstantin Zohaib [facility] 09-26-2023 16:48-0400 Systolic blood pressure 139 mm[Hg] Knostantin Zohaib [facility] 09-26-2023 16:30-0400 Diastolic blood pressure 96 mm[Hg] Konstantin Penny [facility] 09-26-2023 16:30-0400 Mean blood pressure 105 mm[Hg] Konstantin Penny [facility] 09-26-2023 16:30-0400 Respiratory rate 18 /min Konstantin Penny [facility] 09-26-2023 16:30-0400 Systolic blood pressure 122 mm[Hg] Konstantin Penny [facility] 09-26-2023 14:45-0400 Respiratory rate 18 /min Konstantin Penny [facility] 09-26-2023 14:13-0400 Body temperature 98.6 [degF] Konstantin Penny [facility] 07-31-2023 18:01-0500 Diastolic blood pressure 87 mm[Hg] Jignesh Dumont [facility] 07-31-2023 18:01-0500 Heart rate 121 /min Jignesh Tim [facility] 07-31-2023 18:01-0500 Mean blood pressure 99 mm[Hg] Jignesh Tim [facility] 07-31-2023 18:01-0500 Respiratory rate 16 /min Jignesh Tim [facility] 07-31-2023 18:01-0500 SaO2% (BldA) [Mass fraction] 99 % Jignesh Tim [facility] 07-31-2023 18:01-0500 Systolic blood pressure 123 mm[Hg] Jignesh Tim [facility] 07-31-2023 17:00-0500 Diastolic blood pressure 77 mm[Hg] Jignesh Tim [facility] 07-31-2023 17:00-0500 Heart rate 96 /min Jignesh Tim [facility] 07-31-2023 17:00-0500 Mean blood pressure 92 mm[Hg] Jignesh Tim [facility] 07-31-2023 17:00-0500 Systolic blood pressure 122 mm[Hg] Jignesh Tim [facility] 07-31-2023 16:07-0500 Diastolic blood pressure 90 mm[Hg] Jignesh Tim [facility] 07-31-2023 16:07-0500 Heart rate 117 /min Jignesh Tim [facility] 07-31-2023 16:07-0500 Mean blood pressure 105 mm[Hg] Jignesh Dumont [facility] 07-31-2023 16:07-0500 Respiratory rate 19 /min Jignesh Tim [facility] 07-31-2023 16:07-0500 SaO2% (BldA) [Mass fraction] 100 % Jigneshjeannette Dumont [facility] 07-31-2023 16:07-0500 Systolic blood pressure 135 mm[Hg] Jignesh Dumont [facility] 07-31-2023 16:06-0500 Respiratory rate 18 /min Jignesh Tim [facility] 07-31-2023 15:34-0500 Body temperature 97.88 [degF] Jignesh Dumont [facility] 07-31-2023 15:34-0500 Heart rate 136 /min Jignesh Tim [facility] 07-31-2023 15:34-0500 Respiratory rate 18 /min Jignesh Dumont [facility] 07-19-2023 12:40-0500 Body height 165.1 cm Jennifer Duran Other [facility] [employer] Other 04-30-2023 18:19-0500 Diastolic blood pressure 82 mm[Hg] DO Jennifer Duran Work Phone: [facility] 04-30-2023 18:19-0500 Heart rate 128 /min DO Jennifer Duran Work Phone: [facility] 04-30-2023 18:19-0500 Respiratory rate 18 /min DO Jennifer Duran Work Phone: [facility] 04-30-2023 18:19-0500 SaO2% (BldA) [Mass fraction] 99 % DO Jennifer Duarn Work Phone: [facility] 04-30-2023 18:19-0500 Systolic blood pressure 116 mm[Hg] DO Jennifer Duran Work Phone: [facility] 04-30-2023 16:43-0500 Body height 165.1 cm DO Jennifer Duran Work Phone: [facility] 04-30-2023 16:43-0500 Body temperature 98.1 [degF] DO Jeninfer Duran Work Phone: [facility] 04-30-2023 16:43-0500 Body weight 62.3 kg DO Jennifer Duran Work Phone: [facility] 04-24-2023 15:51-0500 Diastolic blood pressure 81 mm[Hg] Jignesh Dumont [facility] 04-24-2023 15:51-0500 Heart rate 98 /min Jignesh Dumont [facility] 04-24-2023 15:51-0500 Mean blood pressure 94 mm[Hg] Jignesh Dumont [facility] 04-24-2023 15:51-0500 Respiratory rate 17 /min Jignesh Tim [facility] 04-24-2023 15:51-0500 SaO2% (BldA) [Mass fraction] 99 % Jignesh Tim [facility] 04-24-2023 15:51-0500 Systolic blood pressure 120 mm[Hg] Jignesh Tim [facility] 04-24-2023 15:00-0500 Diastolic blood pressure 72 mm[Hg] Jignesh Tim [facility] 04-24-2023 15:00-0500 Heart rate 85 /min Jignesh Tim [facility] 04-24-2023 15:00-0500 Mean blood pressure 87 mm[Hg] Jignesh Tim [facility] 04-24-2023 15:00-0500 Respiratory rate 16 /min Jignesh Tim [facility] 04-24-2023 15:00-0500 SaO2% (BldA) [Mass fraction] 96 % Jignesh Tim [facility] 04-24-2023 15:00-0500 Systolic blood pressure 117 mm[Hg] Jignesh Tim [facility] 04-24-2023 14:00-0500 Diastolic blood pressure 88 mm[Hg] Jignesh Tim [facility] 04-24-2023 14:00-0500 Heart rate 99 /min Jignesh Tim [facility] 04-24-2023 14:00-0500 Mean blood pressure 100 mm[Hg] Jignesh Tim [facility] 04-24-2023 14:00-0500 Respiratory rate 18 /min Jignesh Tim [facility] 04-24-2023 14:00-0500 SaO2% (BldA) [Mass fraction] 97 % Jignesh Dumont [facility] 04-24-2023 14:00-0500 Systolic blood pressure 124 mm[Hg] Jignesh Dumont [facility] 04-24-2023 13:29-0500 Body temperature 99.14 [degF] Jignesh Dumont [facility] 04-24-2023 13:29-0500 Heart rate 118 /min Jignesh Dumont [facility] 04-03-2023 00:20-0400 Diastolic blood pressure 70 mm[Hg] DO Jennifer Duran Work Phone: [facility] 04-03-2023 00:20-0400 Heart rate 80 /min DO Jennifer Duran Work Phone: [facility] 04-03-2023 00:20-0400 SaO2% (BldA) [Mass fraction] 98 % DO Jennifer Duran Work Phone: [facility] 04-03-2023 00:20-0400 Systolic blood pressure 122 mm[Hg] DO Jennifer Duran Work Phone: [facility] 04-02-2023 21:48-0400 Diastolic blood pressure 75 mm[Hg] DO Jennifer Duran Work Phone: [facility] 04-02-2023 21:48-0400 Heart rate 90 /min DO Jennifer Duran Work Phone: [facility] 04-02-2023 21:48-0400 Respiratory rate 20 /min DO Jennifer Duran Work Phone: [facility] 04-02-2023 21:48-0400 SaO2% (BldA) [Mass fraction] 98 % DO Jennifer Duran Work Phone: [facility] 04-02-2023 21:48-0400 Systolic blood pressure 109 mm[Hg] DO Jennifer Girvin Work Phone: [facility] 04-02-2023 20:23-0400 Body height 165.1 cm DO Jennifer Girvin Work Phone: [facility] 04-02-2023 20:23-0400 Body temperature 98.2 [degF] DO Jennifer Girvin Work Phone: [facility] 04-02-2023 20:23-0400 Body weight 81.64 kg DO Jennifer Girvin Work Phone: [facility] 03-29-2023 16:11-0400 Body temperature 97.8 [degF] DO Jennifer Girvin Work Phone: [facility] 03-29-2023 16:11-0400 Diastolic blood pressure 79 mm[Hg] DO Jennifer Girvin Work Phone: [facility] 03-29-2023 16:11-0400 Heart rate 104 /min DO Jennifer Girvin Work Phone: [facility] 03-29-2023 16:11-0400 Respiratory rate 16 /min DO Jennifer Girvin Work Phone: [facility] 03-29-2023 16:11-0400 SaO2% (BldA) [Mass fraction] 98 % DO Jennifer Girvin Work Phone: [facility] 03-29-2023 16:11-0400 Systolic blood pressure 123 mm[Hg] DO Jennifer Girvin Work Phone: [facility] 03-29-2023 06:35-0400 Body height 165.1 cm DO Jennifer Girvin Work Phone: [facility] 03-29-2023 06:35-0400 Body weight 87.5 kg DO Jennifer Girvin Work Phone: [facility] 03-29-2023 05:41-0400 Diastolic blood pressure 85 mm[Hg] DO Jennifer Girvin Work Phone: [facility] 03-29-2023 05:41-0400 Heart rate 110 /min DO Jennifer Duran Work Phone: [facility] 03-29-2023 05:41-0400 Respiratory rate 18 /min DO Jennifer Duran Work Phone: [facility] 03-29-2023 05:41-0400 SaO2% (BldA) [Mass fraction] 100 % DO Jennifer Duran Work Phone: [facility] 03-29-2023 05:41-0400 Systolic blood pressure 160 mm[Hg] DO Jennifer Duran Work Phone: [facility] 03-29-2023 01:39-0400 Body height 165.1 cm DO Jennifer Duran Work Phone: [facility] 03-29-2023 01:39-0400 Body temperature 97.2 [degF] DO Jennifer Duran Work Phone: [facility] 03-29-2023 01:39-0400 Body weight 87 kg DO Jennifer Duran Work Phone: [facility] 02-06-2023 04:00-0400 Diastolic blood pressure 74 mm[Hg] DO Jennifer Duran Work Phone: [facility] 02-06-2023 04:00-0400 Heart rate 79 /min DO Jennifer Duran Work Phone: [facility] 02-06-2023 04:00-0400 Respiratory rate 15 /min DO Jennifer Duran Work Phone: [facility] 02-06-2023 04:00-0400 SaO2% (BldA) [Mass fraction] 99 % DO Jennifer Duran Work Phone: [facility] 02-06-2023 04:00-0400 Systolic blood pressure 119 mm[Hg] DO Jennifer Duran Work Phone: [facility] 02-05-2023 23:41-0400 Body height 165.1 cm DO Jennifer Duran Work Phone: [facility] 02-05-2023 23:41-0400 Body temperature 98 [degF] DO Jennifer Duran Work Phone: [facility] 02-05-2023 23:41-0400 Body weight 81.64 kg DO Jennifer Duran Work Phone: [facility] 01-12-2023 14:40-0400 Body height 165.1 cm Jennifer Duran Other [employer] [facility] [employer] Other 01-12-2023 14:40-0400 Body mass index (BMI) [Ratio] 33.44 kg/m2 Jennifer Duran Other [employer] Other 01-12-2023 14:40-0400 Body temperature 99.5 [degF] Jennifer Duran Other [employer] Other 01-12-2023 14:40-0400 Body weight 91.17 kg Jennifer Duran Other [employer] Other 01-12-2023 14:40-0400 Diastolic blood pressure 78 mm[Hg] Jennifer Duran Other [employer] Other 01-12-2023 14:40-0400 Respiratory rate 18 /min Jennifer Enochivelisse Other [employer] Other 01-12-2023 14:40-0400 SaO2% (BldA) [Mass fraction] 97 % Jennifer Enochivelisse Other [employer] Other 01-12-2023 14:40-0400 Systolic blood pressure 110 mm[Hg] Jennifer Duran Other [employer] Other 10-11-2022 16:20-0400 Body height 165.1 cm Jennifer Duran Other [employer] Other 07-12-2022 16:20-0500 Body height 165.1 cm Jennifer Duran Other [employer] Other 07-12-2022 16:20-0500 Body mass index (BMI) [Ratio] 31.2 kg/m2 Jennifer Duran Other [employer] Other 07-12-2022 16:20-0500 Body temperature 97.2 [degF] Jennifer Duran Other [employer] Other 07-12-2022 16:20-0500 Body weight 85.05 kg Jennifer Duran Other [employer] Other 07-12-2022 16:20-0500 Diastolic blood pressure 74 mm[Hg] Jennifer Duran Other [employer] Other 07-12-2022 16:20-0500 Respiratory rate 18 /min Jennifer Duran Other [employer] Other 07-12-2022 16:20-0500 SaO2% (BldA) [Mass fraction] 99 % Jennifer Duran Other [employer] Other 07-12-2022 16:20-0500 Systolic blood pressure 106 mm[Hg] Jennifer Duran Other [employer] Other 04-28-2022 04:00-0500 Diastolic blood pressure 70 mm[Hg] DO Jennifer Roger Work Phone: [facility] 04-28-2022 04:00-0500 Heart rate 81 /min DO Jennifer Duran Work Phone: [facility] 04-28-2022 04:00-0500 SaO2% (BldA) [Mass fraction] 96 % DO Jennifer Duran Work Phone: [facility] 04-28-2022 04:00-0500 Systolic blood pressure 110 mm[Hg] DO Jennifer Duran Work Phone: [facility] 04-28-2022 03:56-0500 Body height 165.1 cm DO Jennifer Duran Work Phone: [facility] 04-28-2022 03:56-0500 Body weight 80 kg DO Jennifer Duran Work Phone: [facility] 04-28-2022 03:56-0500 Respiratory rate 18 /min DO Jennifer Duran Work Phone: [facility] 04-28-2022 00:13-0500 Body temperature 97.2 [degF] DO Jennifer Duran Work Phone: [facility] 04-12-2022 15:40-0400 Body height 165.1 cm Jennifer Duran Other [employer] [facility] [employer] Other 04-12-2022 15:40-0400 Body mass index (BMI) [Ratio] 30.37 kg/m2 Jennifer Duran Other [employer] Other 04-12-2022 15:40-0400 Body temperature 98.8 [degF] Jennifer Duran Other [employer] Other 04-12-2022 15:40-0400 Body weight 82.78 kg Jennifer Duran Other [employer] Other 04-12-2022 15:40-0400 Diastolic blood pressure 76 mm[Hg] Jennifer Duran Other [employer] Other 04-12-2022 15:40-0400 Respiratory rate 18 /min Jennifer Duran Other [employer] Other 04-12-2022 15:40-0400 SaO2% (BldA) [Mass fraction] 98 % Jennifer Duran Other [facility] [employer] Other 04-12-2022 15:40-0400 Systolic blood pressure 110 mm[Hg] Jennifer Duran Other [facility] [employer] Other 04-09-2022 13:32-0400 Body temperature 97.59 [degF] Chair [place] Work Phone: [facility] 04-09-2022 13:32-0400 Diastolic blood pressure 64 mm[Hg] Chair [place] Work Phone: [facility] 04-09-2022 13:32-0400 Heart rate 114 /min Chair [place] Work Phone: [facility] 04-09-2022 13:32-0400 Respiratory rate 18 /min Chair [place] Work Phone: [facility] 04-09-2022 13:32-0400 SaO2% (BldA) [Mass fraction] 97 % Chair Patria Work Phone: [facility] 04-09-2022 13:32-0400 Systolic blood pressure 116 mm[Hg] Chair [place] Work Phone: [facility] 03-26-2022 13:54-0400 Body temperature 97.9 [degF] Chair [place] Work Phone: [facility] 03-26-2022 13:54-0400 Diastolic blood pressure 75 mm[Hg] Chair [place] Work Phone: [facility] 03-26-2022 13:54-0400 Heart rate 82 /min Chair [place] Work Phone: [facility] 03-26-2022 13:54-0400 Respiratory rate 18 /min Chair [place] Work Phone: [facility] 03-26-2022 13:54-0400 SaO2% (BldA) [Mass fraction] 100 % Chair [place] Work Phone: [facility] 03-26-2022 13:54-0400 Systolic blood pressure 106 mm[Hg] Chair [place] Work Phone: [facility] 03-10-2022 13:54-0400 Body height 165.1 cm Gil Ni APRN.PERSONNEL RESEARCH SCIENTIST Work Phone: [facility] 03-10-2022 13:54-0400 Body temperature 97.9 [degF] Gil Ni APRN.PERSONNEL RESEARCH SCIENTIST Work Phone: [facility] 03-10-2022 13:54-0400 Body weight 83.37 kg Gil Ni APRN.PERSONNEL RESEARCH SCIENTIST Work Phone: [facility] 03-10-2022 13:54-0400 Diastolic blood pressure 75 mm[Hg] Gil Ni APRN.PERSONNEL RESEARCH SCIENTIST Work Phone: [facility] 03-10-2022 13:54-0400 Heart rate 95 /min Gil Ni APRN.PERSONNEL RESEARCH SCIENTIST Work Phone: [facility] 03-10-2022 13:54-0400 Respiratory rate 16 /min Gil Ni APRN.PERSONNEL RESEARCH SCIENTIST Work Phone: [facility] 03-10-2022 13:54-0400 SaO2% (BldA) [Mass fraction] 100 % Gil Ni APRN.PERSONNEL RESEARCH SCIENTIST Work Phone: [facility] 03-10-2022 13:54-0400 Systolic blood pressure 130 mm[Hg] Gil Ni APRN.PERSONNEL RESEARCH SCIENTIST Work Phone: [facility] 12-04-2021 12:49-0400 Blood Pressure Location [employer] [facility] 12-04-2021 12:49-0400 Body temperature 98.42 [degF] [employer] [facility] 12-04-2021 12:49-0400 Diastolic blood pressure 82 mm[Hg] Yamilka Orzech [facility] 12-04-2021 12:49-0400 Heart rate 110 /min Yamilka Orzech [facility] 12-04-2021 12:49-0400 SaO2% (BldA) [Mass fraction] 99 % Yamilka Orzech [facility] 12-04-2021 12:49-0400 Systolic blood pressure 126 mm[Hg] Yamilka Orzech [facility] 10-16-2021 09:10-0400 Body height 165.1 cm Jennifer Duran Other [facility] [employer] Other 09-14-2021 19:31-0400 Diastolic blood pressure 82 mm[Hg] DO Jennifer Duran Work Phone: [facility] 09-14-2021 19:31-0400 Heart rate 87 /min DO Jennifer Duran Work Phone: [facility] 09-14-2021 19:31-0400 Respiratory rate 18 /min DO Jennifer Duran Work Phone: [facility] 09-14-2021 19:31-0400 SaO2% (BldA) [Mass fraction] 99 % DO Jennifer Duran Work Phone: [facility] 09-14-2021 19:31-0400 Systolic blood pressure 126 mm[Hg] DO Jennifer Duran Work Phone: [facility] 09-14-2021 14:45-0400 Body height 165.1 cm DO Jennifer Duran Work Phone: [facility] 09-14-2021 14:45-0400 Body mass index (BMI) [Ratio] 30.7 kg/m2 DO Jennifer Duran Work Phone: [facility] 09-14-2021 14:45-0400 Body temperature 98 [degF] DO Jennifer Duran Work Phone: [facility] 09-14-2021 14:45-0400 Body weight 83.91 kg DO Jennifer Duran Work Phone: [facility] 04-21-2021 16:20-0500 Body height 165.1 cm Jennifer Kendallivelisse Other [employer] Other 04-21-2021 16:20-0500 Body mass index (BMI) [Ratio] 32.28 kg/m2 Jennifer Duran Other [facility] Other 04-21-2021 16:20-0500 Body temperature 98.3 [degF] Jennifer Duran Other [employer] Other 04-21-2021 16:20-0500 Body weight 88 kg Jennifer Duran Other [employer] [facility] Other 04-21-2021 16:20-0500 Diastolic blood pressure 82 mm[Hg] Jennifer Duran Other [facility] Other 04-21-2021 16:20-0500 SaO2% (BldA) [Mass fraction] 98 % Jennifer Roger Other [facility] Other 04-21-2021 16:20-0500 Systolic blood pressure 124 mm[Hg] Jennifer Duran Other [employer] [facility] Other Encounters Encounter Date Encounter Type Care Provider Facility Start: 02-13-2024 End: 02-13-2024 Emergency department patient visit Ritesh Heath Facility:[facility] Start: 01-27-2024 End: 01-28-2024 Emergency department patient visit GUSTAVO DAVIES [facility] Start: 01-27-2024 End: 01-27-2024 Emergency department patient visit NO PCP NO PCP [facility] Start: 01-22-2024 End: 01-22-2024 Emergency department patient visit Eren Mireles Emely WATKINS Work Phone: [facility] ED Comment on above: Cyst of left ovary ( Primary Dx) Start: 01-19-2024 End: 01-19-2024 ambulatory DO Jennifer Duran Work Phone: [facility] Work Phone: Start: 01-19-2024 End: 01-19-2024 Patient encounter procedure DO Jennifer Duran Work Phone: [facility] Physician [facility] Work Phone: Start: 12-07-2023 ambulatory DO Jennifer roberts Work Phone: [facility] Work Phone: Start: 12-07-2023 Non-patient / Non-visit DO Jennifer Duran Work Phone: [facility] Physician [facility] Work Phone: Start: 11-25-2023 End: 11-25-2023 Patient encounter procedure DO Jennifer Duran Work Phone: [facility] [place] Work Phone: Start: 11-25-2023 End: 11-25-2023 ambulatory DO Jennifer Duran Work Phone: [facility] Work Phone: Start: 11-23-2023 End: 11-23-2023 ambulatory [facility] Start: 11-09-2023 End: 11-09-2023 ambulatory [facility] Start: 11-08-2023 End: 11-08-2023 Emergency department patient visit DO Jennifer Duran Work Phone: [facility]-Emergency Room Work Phone: Start: 11-08-2023 End: 11-08-2023 Emergency department patient visit Eren Camejo DO Work Phone: [facility] ED Comment on above: Toothache (Primary D x) Start: 10-25-2023 End: 10-26-2023 Emergency department patient visit TARIK Sinclair [facility] Start: 10-25-2023 End: 10-26-2023 Emergency department patient visit TARIK Sinclair [facility] Start: 10-25-2023 End: 10-25-2023 Emergency department patient visit NO PCP NO PCP [facility] Start: 10-25-2023 End: 10-26-2023 Emergency department patient visit DELAND Dottie [facility] Start: 10-19-2023 End: 10-19-2023 ambulatory TARUN BRADEN Not Available Start: 10-18-2023 End: 10-18-2023 ambulatory [facility] Work Phone: Start: 10-18-2023 End: 10-18-2023 Patient encounter procedure [facility] [place] Work Phone: Start: 09-29-2023 End: 09-30-2023 Emergency department patient visit Ritesh Heath [facility] Start: 09-26-2023 End: 09-26-2023 Emergency department patient visit Konstantin Penny [facility] Start: 09-06-2023 End: 09-06-2023 Emergency department patient visit DESTINI COVARRUBIAS [facility] Start: 07-31-2023 End: 07-31-2023 Emergency department patient visit Jignesh Dumont [facility] Start: 07-28-2023 End: 07-28-2023 ambulatory PHYSICIAN NO [facility] Work Phone: Start: 07-28-2023 End: 07-28-2023 Patient encounter procedure PHYSICIAN NO [facility] [place] Work Phone: Start: 07-19-2023 End: 07-19-2023 ambulatory Jennifer Duran Other [facility] Other Start: 07-19-2023 Telephone encounter Jennifer Duran [facility] [place] Start: 06-22-2023 End: 06-23-2023 Emergency department patient visit EVGENY SEN MD Facility:[facility] Start: 06-07-2023 End: 06-07-2023 ambulatory Jennifer Duran Other [facility] Other Start: 06-07-2023 Telephone encounter Jennifer Duran [facility] [place] Start: 05-30-2023 End: 05-30-2023 Emergency department patient visit [facility] Start: 05-17-2023 End: 05-18-2023 Emergency department patient visit Ritesh Heath Facility:[facility] Start: 05-16-2023 End: 05-16-2023 ambulatory Jennifer Duran Other [facility] Other Start: 05-16-2023 Telephone encounter Jennifer Duran [facility] [place] Start: 04-30-2023 End: 04-30-2023 Emergency department patient visit DO Jennifer Duran Work Phone: [facility]-Emergency Room Work Phone: Start: 04-24-2023 End: 04-24-2023 Emergency department patient visit Jignesh Dumont [facility] Start: 04-18-2023 End: 04-18-2023 ambulatory Jennifer Duran Other [facility] Other Start: 04-18-2023 Telephone encounter Jennifer Duran [facility] [place] Start: 04-11-2023 End: 04-11-2023 ambulatory Jennifer Duran Other [facility] Other Start: 04-11-2023 Telephone encounter Jennifer Enochivelisse [facility] [place] Start: 04-04-2023 End: 04-04-2023 ambulatory Jennifer Duran Other [facility] Other Start: 04-04-2023 Telephone encounter Jennifer Duran [facility] [place] Start: 04-02-2023 End: 04-03-2023 Emergency department patient visit DO Jennifer Duran Work Phone: [facility] Work Phone: Start: 04-01-2023 End: 04-01-2023 ambulatory Jennifer Roger Other [facility] Other Start: 04-01-2023 Telephone encounter Jennifer Duran [facility] [place] Start: 03-29-2023 Telephone encounter Jennifer Duran [facility] [place] Start: 03-29-2023 End: 03-29-2023 Evaluation and management of inpatient DO Jennifer Duran Work Phone: [facility] [place] [facility] Work Phone: Start: 03-29-2023 End: 03-29-2023 observation encounter DO Jennifer Duran Work Phone: [facility] Work Phone: Start: 03-29-2023 End: 03-29-2023 ambulatory Jennifer Duran [place] [employer] Other Start: 03-13-2023 End: 03-13-2023 ambulatory DO Jennifer Duran Work Phone: [facility] Work Phone: Start: 03-13-2023 End: 03-13-2023 Patient encounter procedure DO Jennifer Duran Work Phone: [facility]-Flu Vaccine Start: 03-02-2023 End: 03-02-2023 ambulatory Jennifer Duran Other [facility] Other Start: 03-02-2023 Telephone encounter Jennifer Duran [facility] [place] Start: 02-05-2023 End: 02-06-2023 Emergency department patient visit DO Jennifer Duran Work Phone: [facility]-Emergency Room Work Phone: Start: 01-12-2023 End: 01-12-2023 ambulatory Jennifer Duran Other [facility] Other Start: 01-12-2023 Office outpatient visit 15 minutes Jennifer Duran [facility] [place] Start: 12-09-2022 End: 12-09-2022 ambulatory Jennifer Duran Other [facility] Other Start: 12-09-2022 Telephone encounter Jennifer Duran [facility] [place] Start: 10-11-2022 End: 10-11-2022 ambulatory Jennifer Duran Other [facility] Other Start: 10-11-2022 Telephone encounter Jennifer Duran [facility] [place] Start: 09-22-2022 End: 09-22-2022 ambulatory Jennifer Duran Other [facility] Other Start: 09-22-2022 Telephone encounter Jennifer Duran [facility] [place] Start: 07-28-2022 End: 07-28-2022 ambulatory BELKIS SANDOVAL Facility: Start: 07-12-2022 End: 07-12-2022 ambulatory Jennifer Duran Other [facility] Other Start: 07-12-2022 Office outpatient visit 15 minutes Jennifer Duran [facility] [place] Start: 07-12-2022 Telephone encounter Jennifer Duran [facility] [place] Start: 06-02-2022 End: 06-02-2022 ambulatory Jennifer Duran Other [facility] Other Start: 06-02-2022 Telephone encounter Jennifer Duran [facility] [place] Start: 05-04-2022 End: 05-04-2022 ambulatory Jennifer Duran Other [facility] Other Start: 05-04-2022 Telephone encounter [facility]an [facility] Start: 04-30-2022 Telephone encounter Gil arechiga APRN.CNP Work Phone: Hematology/Oncology Comment on above: Lab Orders Start: 04-28-2022 Evaluation and management of inpatient DO Jennifer Duran Work Phone: [facility] [place] Start: 04-28-2022 observation encounter DO Jennifer Duran Work Phone: [facility] Work Phone: Start: 04-12-2022 End: 04-12-2022 ambulatory Jennifer Duran Other [facility] Other Start: 04-12-2022 Office outpatient visit 15 minutes Jennifer Duran [facility] Start: 04-12-2022 Telephone encounter Jennifer Duran [facility] Start: 04-09-2022 End: 04-10-2022 ambulatory Stephenie Suh 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 [employer] [facility] Comment on above: Art Therapy Iron deficiency anem ia due to chronic blood loss (Primary Dx); Malabsorption of iron; Cyst of left ovary Start: 03-26-2022 End: 03-27-2022 ambulatory GIL NI Facility:[facility] Start: 03-26-2022 End: 03-26-2022 ambulatory Chair Anton España Work Phone: Hematology/Oncology Comment on above: Iron deficiency anem ia due to chronic blood loss (Primary Dx); Malabsorption of iron; Cyst of left ovary Start: 03-15-2022 Telephone encounter Sharon Saavedra [facility] H ematology/Oncology Comment on above: Social Work Services Start: 03-10-2022 End: 03-11-2022 ambulatory Gil Ni LINING SCRUBBER.PERSONNEL RESEARCH SCIENTIST Work Phone: Hematology/Oncology Comment on above: Iron deficiency anem ia due to chronic blood loss (Primary Dx); Malabsorption of iron Start: 03-10-2022 End: 03-10-2022 Patient encounter procedure Gil Ni LINING SCRUBBER.PERSONNEL RESEARCH SCIENTIST Work Phone: [facility] Start: 02-18-2022 Telephone encounter Gil arechiga LINING SCRUBBER.PERSONNEL RESEARCH SCIENTIST Work Phone: Hematology/Oncology Comment on above: Lab Orders Start: 02-16-2022 End: 02-16-2022 ambulatory Jennifer Duran Other [facility] Other Start: 02-16-2022 Telephone encounter Jennifer Duran [facility] Start: 02-12-2022 End: 02-12-2022 Patient encounter procedure DO Jennifer Duran Work Phone: [facility] [place] Start: 01-07-2022 End: 01-07-2022 ambulatory Jennifer Duran Other [facility] Other Start: 01-07-2022 Telephone encounter Jennifer Duran [facility] [place] Start: 12-04-2021 End: 12-04-2021 Patient encounter procedure Yamilka Lorenzo [facility] Start: 10-29-2021 End: 10-29-2021 ambulatory Jennifer Duran Other [facility] Other Start: 10-29-2021 Telephone encounter Jennifer Duran [facility] [place] Start: 10-16-2021 End: 10-16-2021 ambulatory Jennifer Duran Other [facility] Other Start: 10-16-2021 Office outpatient visit 15 minutes Jennifer Duran [facility] [place] Start: 09-21-2021 End: 09-21-2021 ambulatory Jennifer Duran Other [facility] Other Start: 09-21-2021 Telephone encounter Jennifer Duran [facility] [place] Start: 09-14-2021 End: 09-14-2021 Emergency department patient visit DO Jennifer Duran Work Phone: [facility]-Emergency Room Start: 08-18-2021 End: 08-18-2021 ambulatory Jennifer Duran Other [facility] Other Start: 08-18-2021 Telephone encounter Jennifer Duran [facility] [place] Start: 08-11-2021 End: 08-11-2021 ambulatory Jennifer Duran Other [facility] Other Start: 08-11-2021 Telephone encounter Jennifer Duran [facility] [place] Start: 08-03-2021 End: 08-03-2021 ambulatory Jennifer Duran Other [facility] Other Start: 08-03-2021 Telephone encounter Jennifer Duran [facility] [place] Start: 07-04-2021 End: 07-04-2021 Patient encounter procedure DO Jennifre Duran Work Phone: [facility] [place] Start: 06-04-2021 End: 06-04-2021 ambulatory Jennifer Duran Other [facility] Other Start: 06-04-2021 Telephone encounter Jennifer Duran [facility] [place] Start: 05-18-2021 End: 05-18-2021 ambulatory Jennifer Duran Other [facility] Other Start: 05-18-2021 Telephone encounter Jennifer Duran [facility] [place] Start: 04-21-2021 End: 04-21-2021 ambulatory Jennifer Duran Other [facility] [employer] Other Start: 04-21-2021 Encounter for genera l adult medical examination without abnormal findings Jennifer Duran [facility] Start: 04-21-2021 Periodic preventive med est patient 18-39 yrs Jennifer Enochivelisse [facility] Procedures Date Procedure Procedure Detail Performing [...] 01-12-2024 Influenza vaccination Flu vaccine (# 1) [facility] Start: 12-07-2023 Patient referral [facility] Work Phone: Start: 03-30-2023 Comprehensive metabo lic 2000 panel - Serum or Plasma [facility] Start: 03-30-2023 [facility] Start: 03-29-2023 [facility] Start: 03-29-2023 Referral to bleach mixer [facility] Start: 03-29-2023 Hospital admission [facility] Start: 03-29-2023 [facility] Start: 03-29-2023 Computed tomography of abdomen and pelvis with contrast CT abdomen pelvis w con [facility] Start: 03-29-2023 CT Abdomen and Pelvi s W contrast IV [facility] Start: 03-29-2023 Transvaginal echography US transvagi nal [facility] Start: 03-29-2023 US Pelvis transvaginal [facility] Start: 03-29-2023 Pelvic echography US pelvic complete [facility] Start: 03-29-2023 US Pelvis [facility] Start: 02-11-2023 COVID-19 Vaccine ( season) COVID-19 Vaccine () [facility] Start: 02-06-2023 Pelvic echography US pelvic complete [facility] Start: 02-06-2023 US Pelvis [facility] Start: 02-06-2023 Transvaginal echography US transvagi [facility] Start: 02-06-2023 US Pelvis transvaginal [facility] Start: 02-05-2023 Computed tomography of abdomen and pelvis with contrast CT abdomen pelvis w con [facility] Start: 02-05-2023 CT Abdomen and Pelvi s W contrast IV [facility] Start: 05-05-2022 End: 07-05-2022 CBC W Auto Differential panel - Blood CBC + DIFF Lab Routine Iron deficiency anemia due to chronic blood loss Malabsorption of iron Expected: 05/05/2022, Expires: 07/05/2022 [facility] Work Phone: Comment on above: Expected: 05/05/2022 , Expires: 07/05/2022 Start: 05-03-2022 End: 07-03-2022 Comprehensive metabolic 2000 panel - Serum or Plasma COMP METABOLIC PANEL Lab Routine Iron deficiency anemia due to chronic blood loss Expected: 05/03/2022, Expires: 07/03/2022 [facility] Work Phone: Comment on above: Expected: 05/03/2022 , Expires: 07/03/2022 Start: 04-28-2022 Pelvic echography US pelvic complete [facility] Start: 04-28-2022 US Pelvis [facility] Start: 04-28-2022 CT Abdomen and Pelvi s WO contrast [facility] Start: 04-28-2022 CT of abdomen and pe lvis without contrast CT abdomen pelvis wo con [facility] Start: 04-28-2022 Transvaginal echography US transvagi nal [facility] Start: 04-28-2022 US Pelvis transvaginal [facility] Start: 02-23-2022 End: 02-20-2023 CBC W Auto Differential panel - Blood CBC + DIFF Lab Routine Iron deficiency anemia due to chronic blood loss Expected: 02/23/2022 (Approximate), Expires: 02/20/2023 [facility] Work Phone: Comment on above: Expected: 02/23/2022 (Approximate), Expires: 02/20/2023 Start: 02-23-2022 End: 02-20-2023 Cobalamin (Vitamin B12) [Mass/volume] in Serum or Plasma VITAMIN B12 BLOOD Lab Routine Iron deficiency anemia due to chronic blood loss Expected: 02/23/2022 (Approximate), Expires: 02/20/2023 [facility] Work Phone: Comment on above: Expected: 02/23/2022 (Approximate), Expires: 02/20/2023 Start: 02-23-2022 End: 02-20-2023 Comprehensive metabolic 2000 panel - Serum or Plasma COMP METABOLIC PANEL Lab Routine Iron deficiency anemia due to chronic blood loss Expected: 02/23/2022 (Approximate), Expires: 02/20/2023 [facility] Work Phone: Comment on above: Expected: 02/23/2022 (Approximate), Expires: 02/20/2023 Start: 02-23-2022 End: 02-20-2023 Ferritin [Mass/volume] in Serum or Plasma FERRITIN BLD Lab Routine Iron deficiency anemia due to chronic blood loss Expected: 02/23/2022 (Approximate), Expires: 02/20/2023 [facility] Work Phone: Comment on above: Expected: 02/23/2022 (Approximate), Expires: 02/20/2023 Start: 02-23-2022 End: 02-20-2023 Folate [Mass/volume] in Serum or Plasma FOLATE SERUM Lab Routine Iron deficiency anemia due to chronic blood loss Expected: 02/23/2022 (Approximate), Expires: 02/20/2023 [facility] Work Phone: Comment on above: Expected: 02/23/2022 (Approximate), Expires: 02/20/2023 Start: 02-23-2022 End: 02-20-2023 Iron and Iron binding capacity panel - Serum or Plasma IRON + TIBC Lab Routine Iron deficiency anemia due to chronic blood loss Expected: 02/23/2022 (Approximate), Expires: 02/20/2023 [facility] Work Phone: Comment on above: Expected: 02/23/2022 (Approximate), Expires: 02/20/2023 Start: 02-11-2022 Influenza vaccination INFLUENZA (#1) [facility] Start: 06-13-2021 DEPRESSION ASSESSMENT DEPRESSION ASS ESSMENT [facility] Start: 11-30-2020 COVID-19 VACCINE (3 - Booster for Moderna series) COVID-19 VACCINE (3 - Booster for Moderna series) [facility] Start: 08-27-2020 COVID-19 VACCINE (3 - Booster for Moderna series) COVID-19 VACCINE (3 - Booster for Moderna series) [facility] Start: 2017 HPV TESTING HPV TESTING [facility] Start: 2017 Screening for malign ant neoplasm of cervix [facility] Start: 01-11-2008 PAP TESTING PAP TESTING [facility] Start: 01-11-2008 Screening for malign ant neoplasm of cervix Pap smear [facility] Start: 2006 DTaP/Tdap/Td vaccine (1 - Tdap) DTaP/Tdap/Td vaccine (1 - Tdap) [facility] Start: 2006 Hepatitis B vaccine (1 of 3 - 19+ 3-dose series) Hepatitis B vaccine (1 of 3 - 19+ 3-dose series) [facility] Start: 2006 Urine microalbumin profile DTAP,TDAP,TD (1 - Tdap) [facility] Start: 2005 HEPATITIS C SCREENING HEPATITIS C SC REENING [facility] Start: 2005 Hepatitis C screening Hepatitis C sc reen [facility] Start: 2005 HIV SCREENING HIV SCREENING [facility] Start: 2002 HIV screening HIV screen [facility] Start: 01-11-2000 Varicella vaccine (1 of 2 - 13+ 2-dose series) Varicella vaccine (1 of 2 - 13+ 2-dose series) [facility] Start: 1999 Adult depression screening assessment DEPRESSION SCREENING [facility] Start: 1999 Depression Screen Depression Screen [facility] Start: 01-11-1988 Varicella vaccine (1 of 2 - 2-dose childhood series) Varicella vaccine (1 of 2 - 2-dose childhood series) [facility] Start: 1987 HEPATITIS B (1 of 3 - 3-dose series) HEPATITIS B (1 of 3 - 3-dose series) [facility] Start: 1987 Hepatitis B vaccine (1 of 3 - 3-dose series) Hepatitis B vaccine (1 of 3 - 3-dose series) [facility] CT Sinuses WO contrast [facility] Patient Education [facility] Work Phone: Patient referral [facility] Work Phone[facility] Immunizations Immunization Date Immunization Notes Care Provider Iraj cevallos 03-13-2023 influenza, injectable, quadrivalent, preservative free Jennifer Duran Other [facility] 03-31-2021 influenza, seasonal, injectable Jennifer Duran Other [facility] 07-02-2020 COVID-19 Vaccine Moderna - Documentation Purposes Only Jennifer Duran Other [facility] 06-04-2020 COVID-19 Vaccine Moderna - Documentation Purposes Only Jennifer Duran Other [facility] 12-10-2008 measles, mumps and rubella virus vaccine [facility] NEGATED: Highlighted row has not occurred!03-23-2019 influenza, seasonal, injectable Patient Objection Jennifer Duran Other [facility] Payers Date Payer Category Payer Self-pay [id number] 2018 Unknown [id number] 1987 Unknown [id number] 2.16.84 0.1.183877.3.579.2.593 1987 Unknown [id number] 2.16.8 40.1.932330.3.579.2.182 1987 Unknown [id number] 2.16.84 0.1.341248.3.579.2.1259 1987 Unknown [id number] 2.16.8 40.1.403478.3.579.2.1286 1987 Unknown [id number] 2.16.8 40.1.999395.3.579.2.1286 1987 Unknown [id number] 2.16.8 40.1.861491.3.579.2.174 1987 Unknown [id number] 2.16.8 40.1.003028.3.579.2.174 1987 Unknown [id number] 2.16.8 40.1.022006.3.579.2.174 1987 Unknown [id number] 2.16.8 40.1.818072.3.579.2.1286 1987 Unknown [id number] 2.16.8 40.1.347254.3.579.2.1285 1987 Unknown [id number] 2.16.8 40.1.748581.3.579.2.1285 1987 Unknown [id number] 2.16.8 40.1.927831.3.579.2.1285 1987 Unknown [id number] 2.16.8 40.1.997710.3.579.2.1285 1987 Unknown [id number] 2.16.8 40.1.930696.3.579.2.1285 1987 Unknown [id number] 2.16.8 40.1.986140.3.579.2.7 1987 Unknown [id number] 2.16.8 40.1.845698.3.579.2.7 1987 Unknown [id number] 2.16.8 40.1.547293.3.579.2.7 1987 Unknown [id number] 2.16.8 40.1.798659.3.579.2.7 1987 Unknown [id number] 2.16.8 40.1.159871.3.579.2.7 1987 Unknown [id number] 2.16.8 40.1.300423.3.579.2.727 1959 Unknown [id number] Unknown [id number] Unknown [id number] Unknown [id number] 2.16.8 40.1.882778.3.579.2.531 Unknown [id number] 2.16.8 40.1.344395.3.579.2.531 Unknown [id number] 2.16.8 40.1.471890.3.579.2.531 Unknown [id number] 2.16.8 40.1.475688.3.579.2.531 Unknown [id number] 2.16.8 40.1.988727.3.579.2.531 Social History Date Type Detail Facility Start: 09-14-2021 End: 05-30-2023 Tobacco smoking status NHIS Never smoked tobacco (finding) [facility] Start: 1985 Sex Assigned At Female [facility] Tobacco smoking status Never [facility] Start: 05-30-2023 End: 09-05-2023 Sex Assigned At Female [facility] Other Start: 04-05-2018 End: 05-30-2023 Tobacco use and exposure Smokeless tobacco non-user [facility] Start: 10-27-2020 End: 03-10-2022 Alcohol intake Current drinker of alcohol (finding) [facility] Start: 04-05-2018 History SDOH Alcohol Comment socially [facility] Start: 1985 Sex Assigned At Not on file [facility] Start: 02-06-2022 End: 04-09-2022 Exposure to SARS-CoV-2 (event) Not sure [facility] History of tobacco use Passive smoker [facility] Start: 09-05-2023 End: 01-22-2024 Alcohol intake Not Asked [facility] Start: 05-30-2023 End: 09-05-2023 History of Social function [facility] How often to you hav e a drink containing alcohol? Monthly or less [facility] How many standard drinks containing alcohol do you have on a typical day? 1 or 2 [facility] How often do you hav e 6 or more drinks on 1 occasion? Less than monthly [facility] Start: 05-30-2023 Alcohol Comment social [facility] Goals Date Patient Goal Desired Activity /State Functional Status Date Assessment Result Facility 09-29-2023 Functional Status N/A [facility] 09-26-2023 Functional Status N/A [facility] 07-31-2023 Functional Status N/A [facility] 04-24-2023 Functional Status N/A [facility] 03-29-2023 Functional status Patient at Baseline [facility] Work Phone: 12-04-2021 Functional Status N/A [facility] Mental Status Date Assessment Result Facility 03-29-2023 Cognitive function Cognitive Sta tus Patient at Baseline [facility] Work Phone: Clinical Notes 03-19-2019 to [...] after getting dental care. Medicines ? Take ubsa-dus-nopynlu and prescription medicines only as told by [...] may be mild or severe. ? Take gwvi-whu-nqlkiar and prescription medicines only as told by [...] provider. Document Revised: 03/04/2021 Document Reviewed: 03/04/2021 [employer] Patient Education ? [address] [facility] 01-22-2024 [facility] Discharg e instructions Eren Camejo, - 01/22/2024 [...] be sent through Care Everywhere.Ovarian Cyst: Functional (Australian)documented in this encounter [facility] 11-08-2023 [facility] Discharg e instructions Eren Camejo DO - 11/08/2023 12:01 PM EDT Use clindamycin as prescribed. Continue the pain medicine that you have at home as needed for pain. Follow-up with dentist as scheduled The following attachments cannot be sent through Care Everywhere.Tooth and Gum Pain (Australian)documented in this encounter [facility] 10-18-2023 Evaluation note Authored October 18, 2023 3:45pm The above note written by __ _Polly Collado____ acting as human recorder, note dictated by Dr. Mcfadden .I performed the above HPI, ROS, and Examination. I formulated and dictated the treatment plan and was present for entire encounter. Jennifer Duran D.O. [facility] Work Phone: 1([phone]) 815-453004-19-2024 Evaluation + Plan noteExtracted from: Title:ED Note [...] Diagnostic Tests Pending * Urine Culture 09/30/23 [facility]04-19-2024 Hospital Discharge instructions Patient Education 09/30/2023 [...] (oophorectomy). Follow these instructions at home: Take zlbm-lkb-pmehmff and prescription medicines only as told by [...] provider. Document Revised: 11/06/2020 Document Reviewed: 11/06/2020 [employer]With[employer] Patient Education 2022 V I O. [facility] 09/29/2023 23:40:10 With:Ino Royal Address: [address] [facility] [address] [place] [address]- Business (1) When:10/03/2023 [facility]04-15-2024 Hospital Discharge instructions Follow Up Care 09/26/2023 13:55:08 With:[facility] Address: [address] [place] [address]- Business (1) When:09/29/2023 17:49:12 With:Tarun BRADEN Address: [address] , [place] [address]- Business (1) When:09/29/2023 17:49:03 With:XXXX NONE Address: [place] When:Within 3 Day(s) [facility]04-15-2024 Evaluation + Plan noteExtracted from: Title:ED [...] q12hr, # 20 tab(s), Refills(s) 0, Pharmacy: [facility]/pharmacy #[id number], 165, cm, 09/26/23 14:18:00 EDT, Height/Length Dosing, 81.2, kg, 09/26/23 14:18:00 EDT, Weight Dosing hyoscyamine, 0.125 mg = 1 tab(s), Oral, QID, X 5 day(s), # 20 tab(s), Refills(s) 0, Pharmacy: [facility]/pharmacy #[id number], 165, cm, 09/26/23 14:18:00 EDT, Height/Length Dosing, 81.2, kg, 09/26/23 14:18:00 EDT, Weight Dosing ketorolac, 30 mg = 1 mL, Injection, IV, Once, Stop date 09/26/23 15:40:00 EDT, STAT, Start date 09/26/23 15:40:00 EDT, 09/26/23 15:40:00 EDT polyethylene glycol 3350, 17 gm, Oral, Daily, X 7 day(s), # 119 gm, Refills(s) 0, Pharmacy: [facility]/pharmacy #[id number], 165, cm, 09/26/23 14:18:00 EDT, Height/Length Dosing, 81.2, kg, 09/26/23 14:18:00 EDT, Weight Dosing Beta hCG Qual CBC w/ Auto Diff Comprehensive Metabolic Panel CT Abdomen/Pelvis w/ Contrast Drug Screen Urine eGFR Extra Blue Tube Extra SST Tube Lipase Level UA with Cult Rflx US Pelvis Non-OB Complete US Transvaginal Non-OB [facility]02-18-2024 Hospital Discharge instructions Patient Education 07/31/2023 [...] Follow these instructions at home: Medicines Take rsjl-hlk-mhigtex and prescription medicines only as told by [...] Watch your condition for any changes. Take pcil-qnr-tkhdfnc and prescription medicines only as told by [...] provider. Document Revised: 07/18/2020 Document Reviewed: 10/08/2019 ShareWithU Patient Education 2022 V I O. Follow Up Care 07/31/2023 15:34:13 With:Follow-up with your EVENT SET UP SPECIALIST at [facility] Address:Unknown When:08/03/2023 17:52:19 Comments:Call the [...] weakness, or any new or worsening symptoms. [facility]02-15-2024 Evaluation note* Author Jennifer Duran [facility] Authored July 28, 2023 1:18pm The above note written by __ _Polly Collado____ acting as human recorder, note dictated by Dr. Mcfadden .I performed the above HPI, ROS, and Examination. I formulated and dictated the treatment plan and was present for entire encounter. Jennifer Duran D.O. [facility] Work Phone: 1(493) 873-401602-06-2024 Evaluation note* Encounter Date Diagnosis Assessment Notes Treatment Notes Treatment Clinical Notes Jul, Anxiety (ICD-10 - F41.9) [facility] 02-06-2024 Evaluation note* Encounter Date Diagnosis [...] an appointment with her specialist through the [facility] and is scheduled at the end of this month (July) and is hoping to have a total hysterectomy. [facility] Other 12-26-2023 Evaluation note* Encounter Date Diagnosis Assessment Notes Treatment Notes Treatment Clinical Notes May, Cough (ICD-10 - R05.9) [facility] 12-04-2023 Evaluation note* Encounter Date Diagnosis Assessment Notes Treatment Notes Treatment Clinical Notes May, Anxiety (ICD-10 - F41.9) [facility] 11-12-2023 Hospital Discharge instructions Patient Education [...] Follow these instructions at home: Medicines Take sovz-kdv-xvgzshi and prescription medicines only as told by [...] Watch your condition for any changes. Take buig-evx-szkwosa and prescription medicines only as told by [...] provider. Document Revised: 07/18/2020 Document Reviewed: 10/08/2019 [employer]With[employer] Patient Education 2022 V I O. Follow Up Care 04/24/2023 13:13:55 With:YOUR OBGYN at [facility] Address:Unknown When:04/27/2023 15:50:22 Comments:Seek immediate medical [...] develop any new or worsening symptoms. 3. [facility]11-12-2023 Evaluation + Plan noteExtracted from: Title:ED Note Author:Jignesh Dumont DO Date:06/24/22 Abdominal pain, acute, left lower quadrant (R10.32: Left lower quadrant pain) Ordered: oxycodone, 5 mg = 1 cap(s), Oral, q6hr, PRN Pain 8-10, X 3 day(s), # 12 cap(s), Refills(s) 0, Pharmacy: [facility]/pharmacy #[id number], 165.1, cm, 04/24/23 13:32:00 [...] Saline Lock Insert UA With Cult Reflex [facility]11-06-2023 Evaluation note* Encounter Date Diagnosis Assessment [...] an appointment with her specialist at the [facility] in June (2023) which was the soonest they could get her in. She is hoping that they will at least remove the ovary but she is willing to have a total hysterectomy if they will do it. 1:13 PM - 1:20 PM [facility] Other 10-20-2023 Evaluation note* Encounter Date Diagnosis Assessment Notes Treatment Notes Treatment Clinical Notes Mar, Anxiety (ICD-10 - F41.9) [employer] [facility] Other 10-17-2023 Progress note Author Christi Aquino [facility] March 29, 2023 4:11pm Note Date/Time March 29, 2023 1 1:35am [facility] [address] [place] [address] Progress Note Signed with Addenda Patient: Livia Noyola MR#: [id number] : 1985 Acct:[id number] Age/Sex: 38 / F Adm Date: 3 Loc: 3T Room: [address] [place] [address] Type: ADM IN Attending Dr: Christi Aquino MD Copies to: ~ ADDENDUM1 Upon re-evaluation in the afternoon, patient feels better and would like to go home. Prescribed pain medications as needed as directed. Advised to continue to follow up with [facility] staff patent litigation associate. 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 patent litigation associate eval requested for further evaluation. 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 Afebrile here, no leukocytosis or obvious evidence of infectious process. Placed on Pain meds regimen IV and PO. Ongoing monitoringfor now. Documented By: Christi Aquino MD 03/29/23 11 32 Signed By: <Electronically signed by Christi Aquino MD> 03/29/23 2141 [facility] Work Phone: 1([phone]) 884-713710-17-2023 History and physical note Author Megan Muniz [facility] March 29, 2023 7:29am Note Date/Time March 29, 2023 7 :29am [facility] [address] [place] [address] Hospitalist H&P Signed Patient: Livia Noyola MR#: [id number] : 1985 Acct:[id number] Age/Sex: 38 / F Adm Date: 3 Loc: 3T Room: [address] [place] [address] Type: ADM IN Attending Dr: Christi Aquino [...] findings. The patient case was discussed with EVENT SET UP SPECIALIST, who was not convinced that left ovarian [...] in the computer system reviewed [facility] Medical History Anemia Endometriosis Surgical History History [...] % (Auto) 42.8 % (.) 03/29/23 01:40 [place] % (Auto) 7.3 % (.) 03/29/23 01:40 Eos % (Auto) 1.8 % (.) 03/29/23 01:40 Baso % (Auto) 1.3 % (.) 03/29/23 01:40 Nucleat RBC Rel Count 0.1 /100 WBC (0-0.5) 03/29/23 01:40 Neut # (Auto) 3.5 x10E3/uL (1.8-7.7) 03/29/23 01:40 Lymph # (Auto) 3.2 x10E3/uL (1.00-4.8) 03/29/23 01:40 [place] # (Auto) 0.6 x10E3/uL (0.0-0.8) 03/29/23 01:40 [...] pH 7.5 (5.0-9.0) 03/29/23 02:53 Ur Specific Boykin 1.003 (1.001-1.030) 03/29/23 02:53 Urine Protein Negative [...] she does have tachycardia We will consult EVENT SET UP SPECIALIST Check lactic acid 2. Microcytic iron deficiency [...] <Electronically signed by Megan Muniz MD> 03/29/23728 [facility] Work Phone: 1(160) 336-976208-02-2023 Evaluation note* Encounter Date Diagnosis Assessment Notes [...] relief. She would need to see an piercing specialist for this. She is agreeable to [...] an appointment to see Dr. Castillo again. [facility] Other 06-29-2023 Evaluation note* Encounter Date Diagnosis Assessment Notes Treatment Notes Treatment Clinical Notes Nov, Acute sinusitis (ICD-10 - J01.90) Nov, Cough (ICD-10 - R05.9) [facility] Other 05-01-2023 Evaluation note* Encounter Date Diagnosis [...] noted. Rx was called into [facility], spoke with Chad TOWNSEND, the Xanax 0.25 MG tablets are out of stock currently so her dose was increased to 0.5 MG and she was instructed to take 1/2 tablet q8-12 hours as needed. Only 12 tablets were called in. Pt voiced understanding when notified of this change. October, Other 3:17 PM - 3:23 PM [facility] Other 04-12-2023 Evaluation note* Encounter Date Diagnosis [...] Sep, Other 12:46 PM - 12:51 PM [facility] Other 01-30-2023 Evaluation note* Encounter Date Diagnosis Assessment Notes Treatment Notes Treatment Clinical Notes Jun, Anxiety (ICD-10 - F41.9) [facility] Other 01-30-2023 Evaluation note* Encounter Date Diagnosis [...] Side effects/risks/benefi ts of medication were reviewed. [facility] Other 12-21-2022 Evaluation note* Encounter Date Diagnosis [...] May, Other 3:27 PM - 3:32 PM [facility] Other 11-18-2022 Miscellaneous Notes* Telephone Encounter - Tabby Steele Ma - 04/30/2022 2:25 PM EST CMP if needed. Tabby Steele Ma [facility]* Encounter Date Diagnosis Assessment Notes Treatment Notes Treatment Clinical Notes Mar, Anxiety (ICD-10 - F41.9) [facility] Other 10-31-2022 Evaluation note* Encounter Date Diagnosis [...] done and then return to see her EVENT SET UP SPECIALIST at the [facility] because she feel she has another ovarian cyst. [facility] Other 10-28-2022 Miscellaneous Notes* Allied Health - [...] 2:21 PM PAGER/CONTACT #: [facility] Miscellaneous Notes* Telephone Encounter - MARY Narvaez - 03/15/2022 12:04 PM EDT Patient appears on the First Time Treatment List for a non-oncology treatment. No psychosocial assessment is indicated. JANNA Narvaez documented [facility]22 NoteHNO ID: [id number] Author: Gil Ni APRN.PIOTR Service: ? 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 She works [...] with subsequent iron deficiency. Recent laboratories from [facility] [place] October 04, 2020 show hemoglobin of 11.6 [...] and removal ovarian cyst (more content not included)...[facility]09-28-2022 History of Present illness Narrative* Gil Ni APRN.PERSONNEL RESEARCH SCIENTIST - 03/10/2022 2:00 PM EDT Images from the original note were not included. 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 She works [...] with subsequent iron deficiency. Recent laboratories from [facility] [place] October 04, 2020 show hemoglobin of11.6 but [...] Hyperlipidemia Father Heart Father bypass surgery, stents, [place] Gil Ni APRN.CNP [facility] Cancer [place], [place] CC: Dr. Jennifer Duran [address] [place] [id number] I spent a total of 30 minutes on the date of the service which included preparing to see the patient, ojgc-sr-hbvq patient care, completing clinical documentation, obtaining and/or reviewing separately obtained history, performing a medically appropriate examination, counseling and educating the pat ient/family/caregiver, ordering medications, tests, or procedures, independently interpreting results (not separately reported), and communicating results to the patient/family/caregiver. documented in this encounterCleveland [id number] Miscellaneous Notes* Telephone Encounter - Meaghan Ordonez - 02/18/2022 3:14 PM EDT Patient has an appt on 02/23. Would you like labs? documented in [facility] encounter[facility] Evaluation note* Encounter Date Diagnosis Assessment Notes Treatment Notes Treatment Clinical Notes Feb, Iron deficiency anemia (ICD-10 - D50.9) Feb, Elevated liver enzymes (ICD-10 - R74.8) [facility] Other 07-28-2022 Evaluation note* Encounter Date Diagnosis Assessment Notes Treatment Notes Treatment Clinical Notes Dec, Anxiety (ICD-10 - F41.9) [facility] Other 06-24-2022 Hospital Discharge instructions Patient Education [...] develop this condition: Playing sports that include kvlh-sy-jvik contact with others. Having a skin condition [...] Follow these instructions at home: Medicines Take jdlf-dxq-vvjxkfc and prescription medicines only as told by [...] 06/20/2015 Document Revised: 07/10/2019 Document Reviewed: 06/21/2017 ShareWithU Patient Education 2020 V I O. 12/04/2021 13:59:11 Sinusitis, Adult Sinusitis, Adult Sinusitis [...] at home: Medicines Take, use, or apply bdau-qoc-ygdwlwt and prescription medicines only as told by [...] and water are not available, use hand freight car loader. Do not smoke. Avoid being around people [...] 05/30/2006 Document Revised: 10/30/2018 Document Reviewed: 10/30/2018 ShareWithU Patient Education 2020 V I O. 12/04/2021 13:59:10 BMI for Adults BMI for [...] height. This can be done either in [place] ([place] or metric measurements. Note that charts are available to help you find your BMI quickly and easily without having to do these calculations yourself. To calculate your BMI in Australian ([place] measurements, your health care provider will: [...] medical problems. BMI can be measured using Australian measurements or metric measurements. To interpret your [...] 02/08/2005 Document Revised: 05/12/2018 Document Reviewed: 04/12/2018 ShareWithU Patient Education 2019 V I O. [facility] 05-06-2022 Evaluation note* Encounter Date [...] October, Other 8:28 AM - 8:35 AM [facility] Other 03-01-2022 Evaluation note* Encounter Date Diagnosis Assessment Notes Treatment Notes Treatment Clinical Notes Aug, Cough (ICD-10 - R05) [facility] Other 02-21-2022 Evaluation note* Encounter Date Diagnosis [...] Jul, Other 5:43 PM - 5:48 PM [facility] Other 12-06-2021 Evaluation note* Encounter Date Diagnosis [...] May, Other 4:25 PM - 4:38 PM [facility] Other 11-09-2021 Evaluation note* Encounter Date Diagnosis [...] R63.5) Her TSH is normal at 1.04. [facility] Other 10-07-2019 History general Narrative - Reported* Type Description Date Medical History endometriosis 2012 Medical History Echocardiogram [employer] Normal, ejection fraction 60-65% Medical History MRI Brain 03-21-19 [facility] [place], Normal Medical History anxiety Medical History pneumonia 06/2019 Surgical History Cholecystectomy Surgical History gal bladder removed 2008 Surgical History ablation - endometri osis removed off ovaries Dr Lentz 2012 Surgical History ovarian torsion 2014 Surgical History MRI pelvis 2017 Surgical History ovarian cyst removed 06/2018 Hospitalization History see above [facility] Other Consult note Author Geraldo Hatfield [facility] April 28, 2022 8:22am Note Date/Time April 28, 2022 8:22am [facility] [address] [place] [address] EVENT SET UP SPECIALIST Consult Note Signed Patient: Livia Noyola MR#: [id number] : 1985 Acct:[id number] Age/Sex: 37 / F Adm Date: 2 Loc: Room: [address] [place] [address] Type: ADM INOo Attending Dr: Kiko Saenz [...] Last Admin: 04/28/22 04:43 Dose: 10 ml VISUAL MERCHANDISING COORDINATOR - Exam Physical Exam Vital signs: Temp 97.7 F 04/28/22 04:18 Pulse 95 H 04/28/22 04:18 Resp 16 04/28/22 04:18 BP 136/95 04/28/22 04:18 Pulse Ox 100 04/28/22 04:18 O2 Del Method Room Air 04/28/22 04:18 Constitutional Constitutional: no acute distress Routine Respiratory Exam Respiratory: Absent respiratory distress Routine Abdominal Exam Abdominal: Present soft, normoactive bowel sounds and tenderness; Absent reboundor guarding VISUAL MERCHANDISING COORDINATOR - Results Laboratory Results - Last 48 hrs. 04/28/22 02:00: Urine Color Yellow, Urine Appearance Cloudy A, Urine pH 6.5, Ur Specific Boykin 1.005, Urine Protein Negative, Urine Glucose (UA) [...] Creatinine Clear 132.36, Sodium 137, Potassium 3.7, Zqmbbofl129, Carbon Dioxide 21.1 L, Anion Gap 14.6, [...] % (Auto) 64.6, Lymph % (Auto) 28.9, Taos % (Auto) 4.5, Eos % (Auto) 1.0, Baso % (Auto) 1.0, Neut # (Auto) 5.1, Lymph # (Auto) 2.3, [place] # (Auto) 0.4, Eos # (Auto) 0.1, Baso # (Auto) 0.1, Nucleated RBC % (auto) 0.0, Platelet Estimate Normal, Plt Morphology Comment Normal, RBC Morphology N/A, Polychromasia Slight, Hypochromasia Slight, Poikilocytosis Moderate, Anisocytosis Marked, Tear Drop Cells Slight, Ovalocytes Moderate VISUAL MERCHANDISING COORDINATOR - A/P (1) Intractable abdominal pain: Code(s): [...] And I suggested she follow-up with her bleach mixer at the [facility]. Code(s): N83.202 - Unspecified ovarian cyst, left side Status: Acute Documented By: GERALDO HATFIELD MD 04/28/22816 Signed By: <Electronically signed by MD GERALDO HATFIELD> 04/28/22821 [facility] Work Phone: Evaluation + Plan note No data available for this section [facility] Evaluation noteNo assessment information available [facility] Work Phone: Evaluation noteNo InformationNort Whale Path Other Evaluation note* Diagnosis Iron deficiency anemia due to chronic blood loss- Primary Iron deficiency anemia secondary to blood loss (chronic) [facility] 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 [facility] Diagnosis 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 Cyst of left ovary Other and unspecified ovarian cyst [facility] Diagnosis 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 Cyst of left ovary Other and unspecified ovarian cyst [facility] Diagnosis Iron deficiency anemia due to chronic blood loss- Primary Iron deficiency anemia secondary to blood loss (chronic) [facility] Diagnosis Onset Date Resolution Status Abdominal pain acute Ovarian cyst acute [facility] Work Phone: Evaluation note* Diagnosis Onset Date Resolution Status Abdominal pain acute Endometriosis acute Ovarian cyst acute [facility] Work Phone: Evaluation note* Author Jennifer Duran [facility] Authored July 28, 2023 12:18pm The above note written by __ _Polly Collado____ acting as human recorder, note dictated by Dr. Mcfadden .I performed the above HPI, ROS, and Examination. I formulated and dictated the treatment plan and was present for entire encounter. Jennifer Duran D.O. [facility] Work Phone: Evaluation note* Diagnosis Toothache- Primary Unspecified disorder of the teeth and supporting structures documented in this encounter [facility] note* Diagnosis Onset Date Resolution Status Anxiety acute Tachycardia acute [facility] Work Phone: Evaluation note* Diagnosis Cyst of left ovary- Primary Other and unspecified ovarian cyst documented in this encounter [facility] access hospital Discharge instructions Additional Instructions Please arrange a follow-up appointment with your [facility] bleach mixer.[facility] Work Phone: Hospital Discharge instructions Additional Instructions Take Motrin and Tylenol as needed for mild to moderate pain. Take oxycodone as prescribed for severe pain. Follow-up with Dr. Ness or Dr. Grayson in the office regarding further treatment with a GnRH antagonist[facility] Hospital Discharge instructions Additional Instructions Take [place] as needed for severe pain, do not drink, drive, operate heavy machinery while taking Continue clindamycin as previously ordered by her dentist Return to emergency room for fever or chills, or dental abscess Follow-up with dentist and oral surgeon [facility] scheduled[facility] Work Phone: Hospital Discharge instructionsAmbulatory Orders* Referral to Allergy/Immunology Time Frame: 12/07/23, Location: None Selected [facility] Work Phone: Progress note No data available for this section [facility] Summary Purpose Family History No Family [...] Provider Chad Luna II Referred Address [address] [facility] [facility] [place] Debbie T[place],[address] Referred Provider Specialty Orthopedic S urgery Referral Priority Routine General Notes Angelita Trevino 01/12/2023 03:51:47 PM > referral sent p2p. pt understands that she will be contacted to schedule this appt. Reason appt consult for e zia and treatment of continued cough since covid infection Diagnosis 1 Cough (R05) Referral Organization [facility] Family Luiz Erazo Referring Provider First Name [...] section and content) DATE CREATED AUTHOR 08/08/2020 [facility] DATE CREATED AUTHOR AUTHOR'S ORGANIZ ATION 05/03/2022 [facility] DATE CREATED AUTHOR AUTHOR'S ORGANIZ ATION 10/19/2022 [facility] DATE CREATED AUTHOR AUTHOR'S ORGANIZ ATION 06/23/2023 [facility] DATE CREATED AUTHOR AUTHOR'S ORGANIZ ATION 09/06/2023 [facility] DATE CREATED AUTHOR AUTHOR'S ORGANIZ ATION 10/21/2023 [facility] Specialists [facility] DATE CREATED AUTHOR AUTHOR'S ORGANIZ ATION 11/24/2023 [facility] DATE CREATED AUTHOR AUTHOR'S ORGANIZ ATION 11/27/2023 [facility] DATE CREATED AUTHOR AUTHOR'S ORGANIZ ATION 01/23/2024 [facility] DATE CREATED AUTHOR AUTHOR'S ORGANIZ ATION 01/30/2024 [facility] DATE CREATED AUTHOR AUTHOR'S ORGANIZ ATION 02/13/2024 [facility] Care Teams (unrecognized sec tion and [...] Active Amaury Barlow , Emergency Provider Active Fingernail Technician Relationship Specialty Start Date End Date Jennifer Duran, DO [address] [place] [address] PCP - General 11/27/07 Jennifer Duran, DO [address] [place] [address] Referring Family Practice 04/03/19 Avinash Velásquez MD [address] [place] [address] Referring EVENT SET UP SPECIALIST 11/30/21 Fingernail Technician Relationship Specialty Start Date End Date Jennifer Duran, DO [address] [place] [address] PCP - General 11/27/07 Jennifer Duran, DO [address] [place] [address] Referring Family Medicine 04/03/19 Avinash Velásquez MD [address] [place] [address] Referring EVENT SET UP SPECIALIST 11/30/21 Fingernail Technician Relationship Specialty Start Date End Date Jennifer Duran, DO [address] [place] [address] PCP - General 11/27/07 Jennifer Duran, DO [address] [place] [address] Referring Family Medicine 04/03/19 Avinash Velásquez MD [address] [place] [address] Referring EVENT SET UP SPECIALIST 11/30/21 Fingernail Technician Relationship Specialty Start Date End Date Jennifer Duran, DO [address] [place] [address] PCP - General 11/27/07 Jennifer Duran, DO [address] [place] [address] Referring Family Medicine 04/03/19 Avinash Velásquez MD [address] [place] [address] Referring EVENT SET UP SPECIALIST 11/30/21 Fingernail Technician Relationship Specialty Start Date End Date Jennifer Duran, DO [address] [place] [address] PCP - General 11/27/07 Jennifer Duran, DO [address] [place] [address] Referring Family Medicine 04/03/19 Avinash Velásquez MD [address] [place] [address] Referring EVENT SET UP SPECIALIST 11/30/21 Fingernail Technician Relationship Specialty Start Date End Date Jennifer Duran, DO [address] [place] [address] PCP - General 11/27/07 Jennifer Duran, DO [address] [place] [address] Referring Family Medicine 04/03/19 Avinash Velásquez MD [address] [place] [address] Referring EVENT SET UP SPECIALIST 11/30/21 Team Status: Active Member Role Status Dates Jennifer Duran , DO Primary Care Provider Active Yevgeniy Cabrera Jr, MD Emergency Provider Active Kiko Saenz , DO Admit Provider, Attending Provider Active Fingernail Technician Relationship Specialty Start Date End Date Jennifer Duran, DO [address] [place] [address] PCP - General 11/27/07 Jennifer Duran, DO [address] [place] [address] Referring [facility] Medicine 04/03/19 Avinash Velásquez MD [address] [facility] [address] [place] [address] Referring EVENT SET UP SPECIALIST 11/30/21 Team Status: Inactive Member Role Status [...] Care Provider Active Jaime Aleman , DO [facility] Attending Provider Active Team Status: Active [...] October 18, 2023 End: October 18, 2023 Fingernail Technician Relationship Specialty Start Date End Date Jennifer Duran DO [address] [place] [address] PCP - General Family Medicine 09/14/23 Team [...] SUCROSE INJECTION PER 1 MG Gil Ni, CATY.[address] [place] [address] Johny Treat [place] [address] [place] [address] Referral ID Status Reason Start Date Expiration Date V isits Requested Visits Authorized [id number] Authorized 03/10/2022 06/12/2022 99 99 Reason Comments [...] or prosecute any alcohol or drug abuse patient.[facility] the event this information is protected by the Federal Confidentiality of Alcohol and Drug Abuse Patient Records regulations: The Federal rules restrict any use of the information to criminally investigate or prosecute any alcohol or drug abuse patient.[facility] the event this information is protected by the Federal Confidentiality of Alcohol and Drug Abuse Patient Records regulations: The Federal rules restrict any use of the information to criminally investigate or prosecute any alcohol or drug abuse patient.[facility] the event this information is protected by the Federal Confidentiality of Alcohol and Drug Abuse Patient Records regulations: The Federal rules restrict any use of the information to criminally investigate or prosecute any alcohol or drug abuse patient.[facility] the event this information is protected by the Federal Confidentiality of Alcohol and Drug Abuse Patient Records regulations: The Federal rules restrict any use of the information to criminally investigate or prosecute any alcohol or drug abuse patient.[facility] the event this information is protected by the Federal Confidentiality of Alcohol and Drug Abuse Patient Records regulations: The Federal rules restrict any use of the information to criminally investigate or prosecute any alcohol or drug abuse patient.[facility] the event this information is protected by the Federal Confidentiality of Alcohol and Drug Abuse Patient Records regulations: The Federal rules restrict any use of the information to criminally investigate or prosecute any alcohol or drug abuse patient.[facility] Ordered Prescriptions (unrec ognized section and [...] BE BASED ON THE PRIMARY CLINICAL RECORDS. [employer] [facility]. provides no warranty or guarantee of the accuracy or completeness of information in this document.
[2024-02-13] MEDS: KETOROLAC TROMETHAMINE 30 MG/ML VIAL IM (23:20)
[2024-02-13 23:22] VITALS: BP 138/87; PULSE 80; O2SAT 99
--- NOTE | 2024-02-14 01:38 | ED_ITS ---
HPI HPI - General Adult General Chief complaint: Dental/Oral Stated complaint: tooth pain Time Seen by Provider: 02/13/24 22:01 Source: patient Mode of arrival: walk-in Limitations: no limitations History of Present Illness HPI narrative: 32-year-old female to the emergency department chief complaint of dental pain. She has been seen several times for this. She is currently taking ibuprofen, Chuckey, clindamycin, topical benzocaine. Patient reports it still hurts. She has not followed up with a dentist. Related Data Home Medications ?Medication ?Instructions ?Recorded ?Confirmed alprazolam 0.25 mg tablet 0.25 mg PO Q8H PRN anxiety 09/20/23 02/11/24 citalopram 20 mg tablet (Celexa) 20 mg PO DAILY 09/20/23 02/11/24 atenolol 25 mg tablet 25 mg PO Q24H 02/11/24 02/11/24 Previous Rx's ?Medication ?Instructions ?Recorded ketorolac 10 mg tablet 10 mg PO TID PRN pain #10 tabs 10/22/23 tramadol 50 mg tablet 50 mg PO Q4H PRN pain 3 days #15 10/22/23 tabs clindamycin HCl 300 mg capsule 300 mg PO Q8H 7 days #21 caps 02/13/24 Allergies Allergy/AdvReac Type Severity Reaction Status Date / Time morphine Allergy Severe itching Verified 02/13/24 21:57 prochlorperazine AdvReac Mild Anxiety Verified 02/13/24 21:57 [From Compazine] Opioid HPI Opioid Management Most Recent Opioid Data: Last Pain Scale 2 09/20/23 15:19 Last ORT Total Score 2 09/20/23 05:45 Last ORT Risk Category Low Risk 09/20/23 05:45 Review of Systems ROS Status of ROS 10 or more systems reviewed and unremark able except as noted in history and below [facility] Medical History (Updated 02/13/24 @ 23:09 by Jignesh Dumont MD) Ovarian cyst ?N83.209 - Unspecified ovarian cyst, unspecified side (ICD-10) Endometriosis ?N80.9 - Endometriosis, unspecified (ICD-10) LLQ abdominal pain ?R10.32 - Left lower quadrant pain (ICD-10) Complex cyst of left ovary ?N83.292 - Other ovarian cyst, left side (ICD-10) Toothache ?K08.89 - Other specified disorders of teeth and supporting structures (ICD- 10) Surgical History (Updated 09/20/23 @ 06:52 by Marichuy Daily RN) History of removal of cyst ?Z98.890 - Other specified postprocedural states (ICD-10) History of cholecystectomy ?Z90.49 - Acquired absence of other specified parts of digestive tract (ICD- 10) Family History (Updated 09/20/23 @ 05:46 by Marichuy Daily RN) Family/Other No problems noted. Father Family history of CHF (congestive heart failure) Family history of COPD (chronic obstructive pulmonary disease) Family history of diabetes mellitus Family history of hypertension Family history of myocardial infarction Mother Family history of hypertension Other Family history of cancer Social History Within the past year, how often did you have a drink containing alcohol: monthly or less Within the past year, how many standard drinks containing alcohol did you have on a typical day: 1 or 2 Within the past year, how often did you have six or more drinks on one occasion: never Total score: 0 Score interpretation: A score less than 3 is consistent with normal alcohol consumption. Smoking status: Never smoker Non-prescribed substance use: denies use Highest level of school completed/degree received: Associate degree: academic program Are you now , , , , never or living with a partner: In a typical week, how many times do you talk on the telephone with family, friends, or neighbors: 3 or more times per week How often do you get together with friends or relatives: 3 or more times per week Little interest or pleasure in doing things: not at all Feeling down, depressed, or hopeless: not at all Feel stressed/tense/nervous/anxious/difficulty sleeping: not at all Do you think of yourself as: straight/heterosexual Gender Identity: female Exam Narrative Exam Narrative: VITALS: I have reviewed the triage vital signs. GENERAL: Well developed, well appearing adult in no acute distress. NEURO: Alert and oriented. Moves all extremities. Face is symmetric and expressive. EYES: PERRL. No scleral icterus or conjunctival injection. No discharge. HENT: Normocephalic, atraumatic. Mucous membranes moist. Generally poor dentition. NECK: No JVD. Patient moves neck without restriction. No crepitus. No erythema no edema. EXTREMITIES: Symmetric muscle bulk. No joint swelling. No clubbing, cyanosis, or deformity. SKIN: Warm and dry. Normal turgor. No rash or lesions appreciated. PSYCH: Mood, affect, and interaction is appropriate to the setting. Constitutional Vital Signs, click to edit/add: Last Vital Signs Temp 98.0 F 02/13/24 21:53 Pulse 80 02/13/24 23:22 Resp 16 02/13/24 23:22 BP 138/87 02/13/24 23:22 Pulse Ox 99 02/13/24 23:22 O2 Del Method Room Air 02/13/24 23:22 Course Vital Signs Vital signs: Vital Signs Temperature 98.0 F 02/13/24 21:53 Pulse Rate 97 H 02/13/24 21:53 Respiratory Rate 18 02/13/24 21:53 Blood Pressure 130/93 H 02/13/24 21:53 Pulse Oximetry 100 02/13/24 21:53 Oxygen Delivery Method Room Air 02/13/24 21:53 Temperature 98.0 F 02/13/24 21:53 Pulse Rate 80 02/13/24 23:22 Respiratory Rate 16 02/13/24 23:22 Blood Pressure 138/87 02/13/24 23:22 Pulse Oximetry 99 02/13/24 23:22 Oxygen Delivery Method Room Air 02/13/24 23:22 Medical Decision Making MDM Narrative Medical decision making narrative: Patient already on maximal therapy. No change in condition. She is instructed to continue her medications. She needs to follow-up with a dentist. She is given a list of 24-hour dental clinics. Return precautions were discussed. All questions were answered. The patient was discharged home. Discharge Plan Discharge Stand Alone Forms: Work/School Release, Portal Instructions Chief Complaint: Dental/Oral Clinical Impression: Toothache Patient Disposition: Home, Self-Care Time of Disposition Decision: 23:09 Condition: Good Mode of Transportation: Private Vehicle Prescriptions / Home Meds: No Action tramadol 50 mg tablet 50 mg PO Q4H PRN (Reason: pain) 3 Days Qty: 15 0RF ketorolac 10 mg tablet 10 mg PO TID PRN (Reason: pain) Qty: 10 0RF alprazolam 0.25 mg tablet 0.25 mg PO Q8H PRN (Reason: anxiety) citalopram [Celexa] 20 mg tablet 20 mg PO DAILY atenolol 25 mg tablet 25 mg PO Q24H clindamycin HCl 300 mg capsule 300 mg PO Q8H 7 Days Qty: 21 0RF Print Language: Romanian Instructions: Toothache (ED) Additional Instructions: Can you to take medications as prescribed previously. Follow-up with dentist [facility]. Referrals: Physician,Non-Staff, MD [Primary Care Provider] - 1 week Discharge Date/Time: 02/13/24 23:22
== END 2024-02-13 23:22 | disposition home or self-care (01) ==
PROVIDERS: Emergency Provider Student in an Organized Health Care Education/Training Program
DX: K08.89 Other specified disorders of teeth and supporting structures (principal)
CPT/HCPCS: 96372; 99284; J1885

== ENCOUNTER 2024-04-08 22:04 | Emergency (ER) | payer BC, SELFPAY ==
[2024-04-08 22:08] VITALS: BP 103/60; PULSE 90; TEMP 36.4; O2SAT 100; BMI 30.8
--- OUTSIDE RECORDS SUMMARY | 2024-04-08 22:11 | XMS_ITS | CCD ---
Author Organization [facility] Care Team Providers Care Web Weaver Name Role Phone DO Jennifer Duran Primary Care Provider DO Augustus Santiago Attending Provider DO Amaury Barlow Emergency Provider [phone] Jennifer Duran Primary Care Physician Jennifer Duran Unavailable DO Jennifer Duran Primary Care Provider DO Jennifer Duran Attending Provider Jennifer Duran DO Primary Care Provider Jennifer Duran DO Unavailable Didier BARNETT, Penola P Unavailable Jennifer Duran DO Primary Care Provider [phone] Jennifer Duran DO Unavailable [phone] DO Jennifer Duran Primary Care Provider DO Jennifer Duran Attending Provider [phone] MD Yevgeniy Cabrera Jr Emergency Provider DO Kiko Saenz Admit Provider DO Kiko Saenz Attending Provider Jennifer Duran DO Primary Care Provider Jennifer Duran DO Unavailable [phone] Didier BARNETT, Penola P Unavailable [phone] JENNIFER DURAN Primary Care Unavailable GIL [...] Provider UnaMD Megan Gongora Admit Provider MD Megan Muniz Attending Provider DO Kiko Saenz Other Provider MD Christi Aquino Attending Provider [phone] DO Jaime Aleman Attending Provider [phone] [facility] Primary Care Physician Unavailab DO Jennifer Rm [facility] DO Jaime Aleman Attending Provider DO Ming Childress Emergency Provider UnaMD Megan Gongora Admit Provider MD Christi Aquino Attending Provider [phone] DO Kkio Saenz Other Provider NO FAMILY, PHYSICIAN Primary Care Provider Unava ilable MD MCKINLEY, EVGENY Attending Unavailable JENNIFER DURAN Primary Care Unavailable DO Elier jordan Emergency Provider NONE, XXXX Primary Care Physician Unavailab DESTINI Sheehan Attending Unavailable TARUN BRADEN Attending Unavailable Jennifer Duran DO Primary Care Provider Unavail able DO Jennifer Duran Primary Care Provider [phone] CATY Corbett Emergency Provider [phone] DO Jennifer Duran Attending Provider Jennifer Duran Primary Care Unavailable Megan Muniz Admitting Unavailable Kiko Saenz Consulting Unavailable Christi Aquino Attending Unavailable Faggionato, Imani M Admitting Unavailable Girivelisse, Jennifer Primary Care Unavailable Imani Corbett M Attending Unavailable Manuel, Eiler M Attending Unavailable Manuel, Elier M Admitting Unavailable NO FAMILY, PHYSICIAN Primary Care Unavailable Girivelisse, Jennifer Primary Care Unavailable Ming Childress Attending Unavailable Ming Childress Admitting Unavailable Girvin, Jennifer Primary Care Unavailable Girvin, Jennifer Attending Unavailable Girvin, Jennifer Admitting Unavailable Girvin, Jennifer Primary Care Unavailable Pawan - PSYCHIATRIC, Jaime P Attending Unavailable Pawans - CHC, Jaime P Admitting Unavailable Tuarleen, Elier M Attending Unavailable Girivelisse, Jennifer Primary Care Unavailable Tupa, Elier M Admitting Unavailable Unavailable Primary Care Provider Unavailabl e ROGER, JENNIFER C Primary Care Unavailable EREN CAMEJO Attending Unavailable ROGER, JENNIFER Dee Primary Care Unavailable EREN CAMEJO Attending Unavailable JACY SALDANA Attending Unavailable Jignesh Dumont Attending Unavailable Ritesh Heath SEbenezer Attending Unavailable Ritesh Heath SEbenezer Attending Unavailable Konstantin Penny Attending Unavailable Jignesh Dumont Attending Unavailable Ritesh Heath SEbenezer Attending Unavailable Unavailable Primary Care Provider Unavailabl DAVI Maradiaga Attending Unavailable JENNIFER MOORE Attending Unavailable DENTON DELCID Attending Unavailable No Pcp, No Pcp Primary Care Provider Unavailabl e ADIEL APARICIO Attending Unavailable NO PCP, NO PCP Primary Care Unavailable ADIEL APARICIO Attending Unavailable NO PCP, NO PCP Primary Care Unavailable ADIEL APARICIO Attending Unavailable NO PCP, NO PCP Primary Care Unavailable NO PCP, NO PCP Primary Care Unavailable KEVIN BAGLEY Attending Unavailable TARIK MAYER Attending Unavailable TARIK MAYER Referring Unavailable NO PCP, NO PCP Primary Care Unavailable TARIK MAYER Attending Unavailable TARIK MAYER Referring Unavailable NO PCP, NO PCP Primary Care Unavailable TARIK MAYER Attending Unavailable TARIK MAYER D Referring Unavailable NO PCP, NO PCP Primary Care Unavailable NO PCP, NO PCP Primary Care Unavailable GUSTAVO DAVIES Attending UnavailGUSTAVO Burnett Attending Unavaila GUSTAVO Dickey Referring Unavaila ble NO PCP, NO PCP Primary Care Unavailable NO PCP, NO PCP Primary Care Unavailable JIMENA FARMER Attending Unavailable NO PCP, NO PCP Primary Care Unavailable TYRONE CHENG Attending Unavailable ADIEL APARICIO Referring Unavailable NO PCP, NO PCP Primary Care Unavailable NO PCP, NO PCP Primary Care Unavailable ADIEL APARICIO Admitting Unavailable ADIEL APARICIO Attending Unavailable NO PCP, NO PCP Primary Care Unavailable Allergies Allergy Classification Reported Allergen(s) Allergy Type Date of Onset Reaction(s) Facility (20 sources) Morphine; Translations: [MORPHINE] Drug Allergy 06-20-19 Other: See Comments, Itching (finding), Itching, Hives [facility] (19 sources) Atenolol Drug Allergy 04-18-20 Dr. Cantu/ Dizzy [facility] (6 sources) seasoninig Propensity to adverse reactions Unknown [facility] Other (1 source) Morphine Drug Allergy 07-28-19 [facility] (18 sources) Seasonal allergy Propensity to adverse reactions 04-18-20 Unknown, Watery Eye [facility] (18 sources) Prochlorperazine; Translations: [prochlorperazine ] Drug Allergy 05-25-20 Feeling nervous (finding), Anxiety [facility] (1 source) Morphine Drug Allergy 04-30-20 [facility] (1 source) No Known Medication Allergies; Translations: [No Known Medication Allergies] Propensity to adverse reactions (disorder) [facility] (3 sources) Atenolol Propensity to adverse reactions to drug 04-18-20 [facility] (3 sources) Phenothiazine Propensity to adverse reactions to drug 05-25-20 Anxiety, Itching [facility] (3 sources) Octacosanol Propensity to adverse reactions to drug 04-18-20 [facility] Medications Current Medications Medication Drug Class(es) Dates Sig (Normalized) Sig (Original) acetaminophen 325 mg / HYDROcodone bitartrate 5 mg oral tablet (20 sources) Opioid Agonist Start: 03-03-2024 End: 03-03-2024 1 tablet, Oral, ONCE, 1 dose, On 03/03/24 at 1615 Start: 02-11-2024 take 1 tablet by suman th every six hours hydroCODone-acetaminophen 5-325 MG table t TAKE 1 TABLET BY MOUTH EVERY 6 HOURS FOR 3 DAYS 02/11/2024 Active Start: 11-08-2023 End: 01-19-2024 take 1 tablet by mouth every four to six hours Hydrocodone-Acetaminophen Discontinued 1 TAB PO EVERY 4-6 HOURS 12 November 08, 2023 January 19, 2024 11:18am Start: 09-14-2021 End: 04-28-2022 take 1 tablet by mouth three times daily Hydrocodone-Acetaminophen Discontinued 1 TAB PO Three times daily 02 13September 14, 2021 April 28, 2022 1:50am acetaminophen 325 mg / oxyCODONE hydrochloride 5 mg oral tablet (20 sources) Opioid Agonist Start: 01-27-2024 End: 02-23-2024 take 1 tablet by mouth every six hours as needed for pain oxyCODONE-acetaminophen 5-325 MG per tablet Indications: Lower abdominal pain Take 1 tablet by mouth every 6 hours as needed for Moderate Pain for up to 7 days. 20 tablet 02/16/2024 Active Start: 07-31-2023 End: 08-03-2023 Percocet 5 mg-325 mg oral ta blet 1 tab(s), Oral, q6hr Pain 8-10 for [...] tablet (20 sources) Benzodiazepine Start: 09-14-2023 End: 03-21-2024 Alprazolam Active 0.25 MG PO .COMPLEX 5 March 21, 2024 3:30pm 0.25 mg orally Q8-12 hrs as needed [...] on above: TAKE 1 TABLET BY SUMAN EVERY 8 TO 12 HOURS NEEDED FOR ANXIETY amoxicillin 80 mg/ml oral suspension (1 source) Penicillin-class Antibacterial Start: 2 End: 2 take 1000 mg by mouth every twelve hours amoxicillin 400 mg/5 mL Oral Liq 1,000 mg = 12.5 mL, Oral, q12hr, X 10 day(s), # 250 mL, Refills(s) 0, Pharmacy: [facility]/pharmacy #[id number], 166, cm, 12/04/21 12:54:00 EDT, Height/Length Dosing, 84, kg, 12/04/21 12:54:00 EDT, Weight Dosing Start Date: 12/04/21 Stop Date: 12/14/21 Status: Ordered amoxicillin 875 mg / clavulanate 125 mg oral tablet (20 sources) Penicillin-class Antibacterial Start: 4 End: Amoxicillin-clavula carson 875-125 MG tablet Take by mouth. 02/13/2024 02/20/2024 Active Start: 02-13-2024 End: 02-20-2024 Augmentin 875 mg-125 mg Tab 1 tab(s), Oral, q12hr for 7 day(s), 14 tab(s), Refill(s) 0, [facility]/pharmacy #[id number], 165.1, cm, 02/13/24 0:28:00 EDT, Height/Length Dosing, 87.3, kg, 02/13/24 0:28:00 EDT, Weight Dosing Start Date: 02/13/24 Stop Date: 02/20/24 Status: Ordered Start: 07-28-2023 End: 10-18-2023 take 1 tablet by mouth twice daily at mealtime Amoxicillin-Pot Clavulanate Discontinued 1 TAB PO Twice daily 01 04October 04, 2023 10:41am October 18, 2023 3:11pm Take with food Start: 04-18-2023 take 10 mL by mouth twice moises y Amoxicillin-Pot Clavulanate 600-42.9 MG/5ML 10 ml Orally bid for 10 days Apr, Active Start: 03-02-2023 take 1 tablet by suman twice daily [...] with food for 10 day(s) Jul, Not-Taking ascorbic acid 60 mg / beta carotene 5000 unt / copper sulfate 40 mg / dl-alpha tocopheryl acetate 30 unt / sodium selenite 0.04 mg / zinc oxide 40 mg oral tablet (3 sources) Vitamin C take 1 tablet by mouth once daily Multiple Vitamins-Iron (QC Daily Multivitamins/Iron) tablet Take 1 tablet by mouth daily. Active aspirin 81 mg oral tablet (13 sources) Platelet Aggregation Inhibitor, Nonsteroidal Anti-inflammatory Drug Start: take 1 tablet by mouth once daily at mealtime Aspirin EC 81 MG 1 tablet Orally qd with food May, Active Start: 05-18-2021 take 1 tablet by suman th once daily at mealtime Aspirin EC 81 MG 1 tablet Orally qd with food May, Not-Taking atenolol 25 mg oral tablet (20 sources) beta-Adrenergic Graciela Start: 01-19-2024 take 25 mg by mouth twice daily Atenolol Active 25 MG PO Twice daily March 23, 2024 12:19pm Start: 01-19-2024 End: 03-23-2024 take 25 mg by mouth once daily Atenolol Discontinued 2 5 MG PO Daily January 19, 2024 11:38am March 23, 2024 12:20pm Start: 10-20-2020 End: 03-10-2022 atenolol (TENORMIN) 25 mg ta blet Budesonide / formoterol (13 sources) Corticosteroid, beta2-Adrenergic Agonist Symbicort prn Active Symbicort Active cefdinir 300 mg oral capsule (1 source) Cephalosporin Antibacterial Start: 09-22-2022 take 2 capsules by mouth once daily at mealtime Cefdinir 300 MG 2 capsules Orally qd with food for 10 days Sep, Active clindamycin 300 mg oral capsule (4 sources) Lincosamide Antibacterial Start: 02-13-2024 clindamycin 300 MG capsule 02/13/2024 Active Start: 11-08-2023 End: 11-18-2023 take 1 capsule by mouth four times daily clindamycin (CLEOCIN) 300 MG capsule Take 1 capsule by mouth 4 times daily for 10 days 40 capsule 0 11/08/2023 11/18/2023 Active diflunisal 500 mg oral tablet (3 sources) Nonsteroidal Anti-inflammatory Drug Start: 09-26-2023 take 1 tablet by mouth every twelve hours diflunisal 500 mg Tab 500 mg = 1 tab(s), Oral, q12hr, # 20 tab(s), Refills(s) 0, Pharmacy: [facility]/pharmacy #[id number], 165, alejandro, 09/26/23 14:18:00 EDT, Height/Length Dosing, 81.2, kg, 09/26/23 14:18:00 EDT, Weight Dosing Start Date: 09/26/23 Status: Ordered doxycycline hyclate 100 mg oral capsule (17 sources) Tetracycline-class Drug Start: 04-11-2023 take 1 [...] Active Start: 07-23-2020 take 1 tablet by usman th every twenty-four hours Ferrous Sulfate 325 [...] 15, 2018 1:00am June 20, 2019 8:08pm fluconazole 150 mg oral tablet (3 sources) Azole Antifungal Start: 01-30-2024 take 1 tablet by mouth once Fluconazole 150 MG tablet TAKE 1 TABLET BY MOUTH ONCE 01/30/2024 Active hyoscyamine sulfate 0.125 mg oral tablet (2 sources) Start: 09-26-2023 End: 10-01-2023 take 1 tablet by mouth four times daily Levsin 0.125 mg SL Tab 0.125 mg = 1 tab(s), Oral, QID, X 5 day(s), # 20 tab(s), Refills(s) 0, Pharmacy: [facility]/pharmacy #[id number], 165, cm, 09/26/23 14:18:00 EDT, Height/Length Dosing, 81.2, kg, 09/26/23 14:18:00 EDT, Weight Dosing Start Date: 09/26/23 Stop Date: 10/01/23 Status: Ordered ketorolac tromethamine 10 mg oral tablet (7 sources) Nonsteroidal Anti-inflammatory Drug, Cyclooxygenase Inhibitor take 1 tablet by mouth every six hours as needed for pain ketorolac (TORADOL) 10 mg tablet Take 1 tablet (10 mg total) by mouth every 6 (six) hours as needed for pain. Active mupirocin 0.02 mg/mg topical ointment (1 source) RNA Synthetase Inhibitor Antibacterial Start: 12-04-2021 End: 12-14-2021 mupirocin Top 2% Oint 1 luis, Topical, TID for 10 day(s), 22 gm, Refill(s) 0, [id number], 166, cm, 12/04/21 12:54:00 EDT, Height/Length Dosing, 84, kg, 12/04/21 12:54:00 EDT, Weight Dosing Start Date: 12/04/21 Stop Date: 12/14/21 Status: Ordered nabumetone 750 mg oral tablet (3 sources) Nonsteroidal Anti-inflammatory Drug Start: 05-08-2023 take 1 tablet by mouth every twelve hours as needed for pain nabumetone 750 MG tablet take 1 tablet by mouth every 12 hours as needed for pain 05/08/2023 Active naloxone hydrochloride 40 mg/ml nasal spray (3 sources) Opioid Antagonist Start: 02-16-2024 End: 02-16-2024 naloxone 4 MG/0.1ML 1 spray by Nasal route once for 1 dose. [place] into the nose as directed. Call 911. If no response in 2 minutes use a new nasal spray in other nostril. Repeat until help arrives. 1 Each 02/16/2024 Active ondansetron 4 mg disintegrating oral tablet (20 sources) Serotonin-3 Receptor Antagonist Start: 02-24-2024 End: 02-24-2024 4 mg, Intravenous, ONCE, 1 dose, On Tue02/24/24 at 2100 Start: 02-16-2024 End: 02-16-2024 4 mg, Intravenous, ONCE, 1 d ose, On 02/16/24 at 1430 Start: 01-22-2024 Ondansetron 4 MG Tab Dispersible tablet Place 1 tablet under tongue. 01/22/2024 Active Start: 09-06-2023 take 1 tablet [...] 1:50am oxyCODONE hydrochloride 5 mg oral capsule (11 sources) Opioid Agonist Start: 04-24-2023 End: 04-27-2023 [...] 12 March 29, 2023 polyethylene glycol 3350 52691 mg powder for oral solution (2 sources) Osmotic Laxative Start: 09-26-2023 End: 10-03-2023 take 17 g by mouth once daily Miralax 3350 17 gram packet 17 gm, Oral, Daily, X 7 day(s), # 119 gm, Refills(s) 0, Pharmacy: [facility]/pharmacy #[id number], 165, cm, 09/26/23 14:18:00 EDT, Height/Length Dosing, 81.2, kg, 09/26/23 14:18:00 EDT, Weight Dosing Start Date: 09/26/23 Stop Date: 10/03/23 Status: Ordered Symbicort 80/4.5 inhalation aerosol with adapter (6 sources) Start: 12-04-2021 Symbicort 80/4 .5 inhalation aerosol with adapter Refill(s) 0 Start Date: 12/04/21 Status: Ordered traMADol hydrochloride 50 mg oral tablet (5 sources) Opioid Agonist Start: 01-22-2024 End: 01-25-2024 take 1 tablet by mouth every six hours as needed for pain traMADol 50 MG tablet TAKE 1 TABLET BY MOUTH EVERY 6 HOURS NEEDED FOR PAIN FOR UP TO 3 DAYS. TAKE LOWEST DOSE POSSIBLE 01/22/2024 Active Start: 01-22-2024 End: 01-22-2024 take 1 [...] Drug Class(es) Dates Sig (Normalized) Sig (Original) [id number] 200 actuat albuterol 0.09 mg/actuat metered dose inhaler (16 sources) beta2-Adrenergic Agonist Start: 06-20-2019 End: 04-28-2022 take 1 puff(s) by inhalation every four to six hours Albuterol Sulfate Discontinued 2 PUFF INHALATION EVERY 4-6 HOURS June 20, 2019 1:00am April 28, 2022 1:51am azithromycin 250 mg oral tablet (16 sources) Macrolide Antimicrobial Start: 04-17-2021 End: 04-28-2022 Azithromycin Discontinued 0 PO .COMPLEX April 17, 2021 12:00am April 28, 2022 [...] mg/ml / guaiFENesin 20 mg/ml oral solution (16 sources) Opioid Agonist Start: 06-20-2019 End: 04-28-2022 take 1 mL by mouth every four to six hours Codeine-Guaifenesin Discontinued 10 ML PO EVERY 4-6 HOURS June 20, 2019 1:00am April 28, 2022 1:50am dextromethorphan hydrobromide 30 mg / pyrilamine maleate 30 mg oral tablet (7 sources) Uncompetitive B-hgwjwo-C-asparta te Receptor Antagonist, Sigma-1 Agonist Start: 08-11-2021 take 1 tablet by mouth every six hours as needed Barryton DMT 30-30 MG 1 tablet Orally q6 [...] (Hycodan) 5-1.5 mg/5 mL (5 mL) syrup (12 sources) Start: 09-07-2023 End: 03-27-2024 Hydrocodone-Homatropine (Hycodan) 5-1.5 mg/5 mL (5 mL) syrup Discontinued 5 ML PO Every 6 hours 140 7 September 07, 2023 September 07, 2023 2:42pm Start: 09-07-2023 End: 10-04-2023 Hydrocodone-Homatropine (Hyc odan) 5-1.5 mg/5 mL (5 mL) syrup Discontinued 5 ML PO Every 6 hours 140 7 September 07, 2023 October 04, 2023 10:42am HYDROmorphone hydrochloride 2 mg oral tablet (17 sources) Opioid Agonist Start: 02-24-2024 End: 02-24-2024 0.5 mg, Intravenous, ONCE, 1 dose, On Tue02/24/24 at 2330 Start: 02-16-2024 End: 02-16-2024 0.5 mg, Intravenous, ONCE, 1 dose, On Tue02/16/24 at 1645 Start: 02-16-2024 End: 02-16-2024 1 mg, Intravenous, ONCE, 1 d ose, On Tue02/16/24 at 1430 Start: 04-28-2022 End: 03-29-2023 take 1 tablet by mouth every four hours Hydromorphone (Dilaudid) 2 mg tablet Discontinued 2 MG PO Q4H 30 April 28, 2022 March 29, 2023 1:48am ibuprofen 600 mg oral tablet (15 sources) Nonsteroidal Anti-inflammatory Drug Start: 04-28-2022 End: [...] on above: Take 1 tablet by suman every 6 hours. iohexol (OMNIPAQUE) 350 MG/ML injection 75 mL (1 source) Start: End: 75 mL, Intravenous, ONCE, 1 dose, On 02/15/24 at 1615, Extravasation Risk, Radiology Procedure Multivitamins-Iron tab (7 sources) take 1 tablet by mouth once daily Multivitamins-Iron tab Take 1 tablet by mouth once daily. 0 Active Comment on above: Take 1 tablet by suman th once daily. naproxen 500 mg oral tablet (12 sources) Nonsteroidal Anti-inflammatory Drug Start: 3 End: 3 take 500 mg by mouth twice daily Naproxen Discontinued 500 MG PO Twice daily March 29, 2023 12:00am April 30, 2023 6:33pm potassium chloride 20 meq extended release oral tablet (15 sources) Start: 2 End: 2 take 20 [...] mealtime Prednisone Discontinued 50 MG PO Daily 10 15April 17, 2021 12:00am April 28, 2022 1:50am administer with food or milk Start: 06-20-2019 End: 04-28-2022 take 40 mg by mouth once daily Prednisone Discontinued 40 MG PO Daily 10 June 20, 2019 1:00am April 28, 2022 1:50am prochlorperazine 5 mg oral tablet (11 sources) Phenothiazine Start: 03-29-2023 End: 04-30-2023 take 5 mg by mouth every eight hours Prochlorperazine Maleate Discontinued 5 MG PO Q8H 20 March 29, 2023 12:00am April 30, 2023 6:33pm 250 ml sodium chloride 9 mg/ml injection (2 sources) Start: 02-16-2024 End: 02-16-2024 75 mL, Intravenous, ONCE, 1 dose, On Obdulia 02/16/24 at 1615, Radiology Procedure Problems Active Problems Problem Classification Problem Date [...] 04-21-2021 Chronic Disorders of teeth and jaw (9 sources) Toothache; Translations: [Other specified disorders of teeth and supporting structures] Onset: 11-08-2023 11-08-2023 Episodic Endometriosis (20 sources) Endometriosis (clinical); Translations: [Endometriosis, unspecified] Onset: 03-29-2023 03-29-2023 Chronic Endometriosis (1 source) Endometriosis Onset: 04-06-2024 Fever of unknown origin (10 sources) Fever, unspecified; Translations: [Fever] Episodic Fluid and electrolyte disorders (17 sources) Hypokalemia; Translations: [Hypokalemia] Onset: 01-27-2024 06-20-2019 [...] Onset: 06-22-2023 Episodic Other lower respiratory disease (16 sources) Dyspnea; Translations: [Dyspnea, unspecified] 06-20-2019 Episodic Other lower respiratory disease (18 sources) Cough; Translations: [Acute cough] 07-28-2023 Episodic Other lower respiratory disease (1 source) Cough; Translations: [Acute cough] 07-28-2023 Episodic Other nervous system disorders (20 sources) Paresthesia of upper limb; Translations: [Paresthesia of skin] Episodic Other non-traumatic joint disorders (1 source) Arthralgia of the pelvic region and thigh; Translations: [Pain in right hip] 03-03-2024 Episodic Other non-traumatic joint disorders (2 sources) Pain in right hip; Translations: [Pain in right hip] Onset: 03-03-2024 Episodic Other nutritional; endocrine; and metabolic disorders (1 source) Obese class I; Translations: [Body mass index (BMI) 30.0-30.9, adult] Onset: 12-04-2021 Chronic Other nutritional; endocrine; and metabolic disorders (2 sources) Abnormal weight gain; Translations: [Abnormal weight gain] Onset: 04-21-2021 Resolved: 04-21-2021 Episodic Other nutritional; endocrine; and metabolic disorders (1 source) Weight increased; Translations: [Abnormal weight gain] 03-23-2024 Episodic Other screening for suspected conditions (not mental disorders or infectious disease) (4 sources) Other specified abnormal findings of blood chemistry; Translations: [No current problems or disability] Onset: 06-22-2023 12-04-2021 Episodic Other upper respiratory infections (11 sources) Sinusitis; Translations: [Chronic sinusitis, unspecified] Onset: 11-25-2023 10-18-2023 Chronic Other upper respiratory infections (15 sources) Acute sinusitis, unspecified; Translations: [Acute sinusitis] Onset: 10-16-2021 Resolved: 10-16-2021 Episodic Ovarian cyst (20 sources) Cyst of ovary; Translations: [Unspecified ovarian cyst, unspecified side] Onset: 05-30-2018 09-14-2021 Episodic Residual codes; unclassified (1 source) Insomnia; Translations: [Insomnia, unspecified] 03-23-2024 Episodic Residual codes; unclassified (1 source) Insomnia, unspecified; Translations: [Insomnia, unspecified] 03-23-2024 Episodic Skin and subcutaneous tissue infections (1 source) Impetigo; Translations: [Impetigo, unspecified] Onset: 12-04-2021 Episodic Unclassified (1 source) Cough, unspecified; Translations: [Cough, unspecified] Onset: 11-25-2023 Past or Other Problems Problem Classification Problem Date Documented Da te Episodic/Chronic Cardiac dysrhythmias (20 sources) Tachycardia; Translations: [Tachycardia, unspecified] Onset: 04-21-2021 Resolved: 04-21-2021 06-20-2019 Episodic Nausea and vomiting (2 sources) Nausea with vomiting, unspecified; Translations: [Nausea] Onset: 05-18-2021 Resolved: 05-18-2021 Episodic Other liver diseases (1 source) Abnormal levels of other serum enzymes Onset: 02-16-2022 Resolved: 02-16-2022 Episodic Other lower respiratory disease (1 source) Cough Onset: 08-11-2021 Resolved: 08-11-2021 Episodic Residual codes; unclassified (1 source) Family history of disorders of kidney and ureter; Translations: [Family history of disorders of kidney and ureter] Onset: 05-30-2023 Episodic Unclassified (8 sources) Cough R05.9 Onset: 05-18-2021 Resolved: 10-16-2021 Viral infection (1 source) COVID-19 Onset: 05-18-2021 Resolved: 05-18-2021 Results Test Name Value Interpretation Reference Range Facility CBC AND AUTO DIFFon 04-05-20 ABSOLUTE BASOPHIL 0.1 X10E9/L Normal 0.0-0.2 [facility] Comment on above: Performed By: #### N UM #### [facility] ([id number]) [address] [place] [address], [place] [address] ABSOLUTE NEUTROPHIL 4.5 X10E9/L Normal 1.5-6.6 [facility] Comment on above: Performed By: #### N UM #### [facility] ([id number]) [address] [place] [id number] Basophils/100 WBC (Bld) 1.1 % Normal [facility] Comment on above: Performed By: #### N UM #### [facility] ([id number]) [address] [place] [address] [id number] Eosinophils (Bld) [#/Vol] 0.0 10*3/uL Normal 0.0-0.4 [facility] Comment on above: Performed By: #### N UM #### [facility] ([id number]) [address] [place] [address] [id number] Eosinophils/100 WBC (Bld) 0.5 % Normal [facility] Comment on above: Performed By: #### N UM #### [facility] ([id number]) [address] [place] [address] 12619 Erythrocyte distribution width (RBC) [Ratio] 18.3 % High 11.5-15.0 [facility] Comment on above: Performed By: #### N UM #### [facility] ([id number]) [address] [place] [address] 22629 Hematocrit (Bld) [Volume fraction] 32.1 % Low 35-47 [facility] Comment on above: Performed By: #### N UM #### [facility] ([id number]) [address] [place] [address] 16028 Hemoglobin (Bld) [Mass/Vol] 10.2 g/dL Low 11.7-15.5 [facility] [facility] Comment on above: Performed By: #### N UM #### [facility] ([id number]) [address] [place] [address] 06680 Lymphocytes (Bld) [#/Vol] 2.5 10*3/uL Normal 1.0-3.5 [facility] Comment on above: Performed By: #### N UM #### [facility] ([id number]) [address] [place] [address] 10034 Lymphocytes/100 WBC (Bld) 33.1 % Normal [facility] Comment on above: Performed By: #### N UM #### [facility] ([id number]) [address] [place] [address] 73465 MCH (RBC) [Entitic mass] 22.6 pg Low 27-34 [facility] Comment on above: Performed By: #### N UM #### [facility] ([id number]) [address] [place] [address] 49309 MCHC (RBC) [Mass/Vol] 31.7 g/dL Low 32-36 [facility] Comment on above: Performed By: #### N UM #### [facility] ([id number]) [address] [place] [address] 61359 MCV (RBC) [Entitic vol] 71 fL Low 80-100 P [facility] Comment on above: Performed By: #### N UM #### [facility] ([id number]) [address] [place] [address] 93405 Monocytes (Bld) [#/Vol] 0.5 10*3/uL Normal 0-0.9 [facility] Comment on above: Performed By: #### N UM #### [facility] ([id number]) [address] [place] [address] 09055 Monocytes/100 WBC (Bld) 6.2 % Normal P [facility] Comment on above: Performed By: #### N UM #### [facility] ([id number]) [address] [place] [address] 72851 Neutrophils/100 WBC (Bld) 59.1 % Normal [facility] Comment on above: Performed By: #### N UM #### [facility] ([id number]) [address] [place] [address] 87010 Platelet mean volume (Bld) [Entitic vol] 7.6 fL Normal 7-12 [facility] Comment on above: Performed By: #### N UM #### [facility] ([id number]) [address] [place] [address] 43198 Platelets (Bld) [#/Vol] 582 10*3/uL High 150-450 [facility] Comment on above: Performed By: #### N UM #### [facility] ([id number]) [address] [place] [address] 14478 RBC COUNT 4.51 X10E12/L Normal 3.80-5.20 [facility] Comment on above: Performed By: #### N UM #### [facility] ([id number]) [address] [place] [address] 13656 WBC (Bld) [#/Vol] 7.7 10*3/uL Normal 4.0-11.0 [facility] Comment on above: Performed By: #### N UM #### [facility] ([id number]) [address] [place] [address] 33900 COMPREHENSIVE METABOLIC PANE [facility] 04-05-2024 Albumin [Mass/Vol] 4.3 g/dL Normal 3.2-5.3 [facility] Comment on above: Performed By: #### N UM #### [facility] ([id number]) [address] [place] [address] 26436 ALP [Catalytic activity/Vol] 65 U/L Normal 39-130 [facility] Comment on above: Performed By: #### N UM #### [facility] ([id number]) [address] [place] [address] 27550 ALT [Catalytic activity/Vol] 20 U/L Normal 0-31 [facility] Comment on above: Performed By: #### N UM #### [facility] ([id number]) [address] [place] [address] 44540 Anion gap [Moles/Vol] 8 mmol/L Normal 5-15 [facility] Comment on above: Performed By: #### N UM #### [facility] ([id number]) [address] [place] [address] 06739 AST [Catalytic activity/Vol] 24 U/L Normal 0-41 [facility] Comment on above: Performed By: #### N UM #### [facility] ([id number]) [address] [place] [address] 30159 Bilirubin [Mass/Vol] 0.8 mg/dL Normal 0.3-1.2 [facility] Comment on above: Performed By: #### N UM #### [facility] ([id number]) [address] [place] [address] 85756 Calcium [Mass/Vol] 8.9 mg/dL Normal 8.5-10.5 [facility] Comment on above: Performed By: #### N UM #### [facility] ([id number]) [address] [place] [address] [place] [address] Chloride [Moles/Vol] 104 mmol/L Normal 98-109 [facility] Comment on above: Performed By: #### N UM #### [facility] ([id number]) [address] [place] [address] 79020 CO2 [Moles/Vol] 22 mmol/L Normal 22-32 [facility] Comment on above: Performed By: #### N UM #### [facility] ([id number]) [address] [place] [address] [place] [address] Creatinine [Mass/Vol] 0.62 mg/dL Normal 0.40-1.00 [facility] Comment on above: Result Comment: METH OD TRACEABLE TO IDMS STANDARD Performed By: #### N UM #### [facility] ([id number]) [address] [place] [address] 47792 eGFR (CKD-EPI) NON-RACE DEPENDENT >90 Normal >59 [facility] Comment on above: Result Comment: Reported eGFR is based on the CKD-EPI 2020 equation that does not use a race coefficient. Performed By: #### N UM #### [facility] ([id number]) [address] [place] [address] 64961 Glucose [Mass/Vol] 107 mg/dL High 65-99 [facility] Comment on above: Performed By: #### N UM #### [facility] ([id number]) [address] [place] [address] 63003 Potassium [Moles/Vol] 3.7 mmol/L Normal 3.5-5.0 [facility] Comment on above: Performed By: #### N UM #### [facility] ([id number]) [address] [place] [address] 96525 Protein [Mass/Vol] 8.0 g/dL Normal 6.0-8.0 [facility] Comment on above: Performed By: #### N UM #### [facility] ([id number]) [address] [place] [address] 94686 Sodium [Moles/Vol] 134 mmol/L Normal 134-146 [facility] Comment on above: Performed By: #### N UM #### [facility] ([id number]) [address] [place] [address] 87164 Urea nitrogen [Mass/Vol] 8 mg/dL Normal 5-23 [facility] Comment on above: Performed By: #### N UM #### [facility] ([id number]) [address] [place] [address] ABDOMEN AND PELVIS WO CON Ton 04-05-2024 CT ABDOMEN AND PELVIS WO CONT CT ABDOMEN AND PELVIS WO CONT CLINICAL INFORMATION: Abdominal pain, acute, nonlocalized. TECHNIQUE: CT Abdomen and Pelvis without intravenous contrast. All CT scans at this facility use dose modulation, iterative reconstruction, and/or weight based dosing when appropriate to reduce radiation dose to as low as reasonably achievable. COMPARISON: 10/22/2023. FINDINGS: Acute findings: No free fluid or free air. Appendix normal. Cholecystectomy clips. No obstructive uropathy. No mass or fluid collection. Chronic findings: No acute osseous articular abnormality. Solid organs unremarkable. Uterus and adnexa grossly normal. No bowel obstruction. Amplitudes in the pelvis. Hernial orifices normal. IMPRESSION: * No acute findings. Finalized by Veto Atwood MD on 04/05/2024 3:57 PM Normal [facility] HCG ( test) Ql (U)o n 04-05-2024 Beta HCG ( test) Ql (U) Negative Normal NEG [facility] Comment on above: Performed By: #### N UM #### [facility] ([id number]) [address] [place] [address] 47227 LIPASEon 04-05-2024 Lipase [Catalytic activity/Vol] 30 U/L Normal 17-40 [facility] Comment on above: Performed By: #### N UM #### [facility] ([id number]) [address] [place] [address] 83722 Lactate (P arely) [Moles/Vol]o n 04-05-2024 LACTATE W/REFLEX 1.7 mmol/L Normal 0.4-2.0 [facility] Comment on above: Result Comment: Result did not trigger repeat Lactate, re-order if needed. Performed By: #### N UM #### [facility] ([id number]) [address] [place] [address] 96060 URN MACROSCOPIC NURon 2023 BILIRUBIN AUDREY Negative Normal NEG [facility] Comment on above: Performed By: #### N UM #### [facility] ([id number]) [address] [place] [address] [place] [address] BLOOD/HGB AUDREY Negative Normal NEG [facility] Comment on above: Performed By: #### N UM #### [facility] ([id number]) [address] [place] [address] [place] [address] GLUCOSE AUDREY Negative Normal NEG [facility] Comment on above: Performed By: #### N UM #### [facility] ([id number]) [address] [place] [address] [place] [address] KETONES AUDREY Negative Normal NEG [facility] Comment on above: Performed By: #### N UM #### [facility] ([id number]) [address] [place] [address] [place] [address] LEUKOCYTE ESTERASE AUDREY Negative Normal NEG [facility] Comment on above: Performed By: #### N UM #### [facility] ([id number]) [address] [place] [address] [place] [address] NITRITE AUDREY Negative Normal NEG [facility] Comment on above: Performed By: #### N UM #### [facility] ([id number]) [address] [place] [address] [place] [address] PH AUDREY 7.0 Normal 5.0-8.5 [facility] Comment on above: Performed By: #### N UM #### [facility] ([id number]) [address] [place] [address] 85331 PROTEIN AUDREY Negative Normal NEG [facility] Comment on above: Performed By: #### N UM #### [facility] ([id number]) [address] [place] [address] [place] [address] SPECIFIC GRAVITY AUDREY 1.010 Normal 1.003-1.035 [facility] Comment on above: Performed By: #### N UM #### [facility] ([id number]) [address] [place] [address] 92979 UROBILINOGEN AUDREY 0.2 eu/dL Normal <1.1 [facility] Comment on above: Performed By: #### N UM #### [facility] ([id number]) [address] [place] [address] 73763 US PELVIC WITH TRANSVAGINAL AND DUPLEXon 04-05-2024 US PELVIC WITH TRANSVAGINAL AND DUPLEX US [...] Doppler duplex spectral waveforms were evaluated. COMPARISON: 01/27/24. FINDINGS: The uterus measures 7.6 x 5.1 x 3.9 cm. Endometrial thickness is 11 mm. Normal cervix. The right ovary measures 2.9 x 3.0 x 3.0 cm. The left ovary measures 3.7 x 3.1 x 1.5 cm. Ovarian follicles noted bilaterally. Resolution left ovarian hemorrhagic cyst. No free fluid. The arterial and venous waveforms are within normal limits. IMPRESSION: * No acute findings. Finalized by Ming Martinez MD on 04/05/2024 3:03 PM Normal [facility] CBC AND AUTO DIFFon 03-28-20 ABSOLUTE BASOPHIL 0.1 X10E9/L Normal 0.0-0.2 [facility] Comment on above: Performed By: #### C BCA, CMP #### [facility] ([id number]) [address], [address] [place] [address] ABSOLUTE NEUTROPHIL 2.4 X10E9/L Normal 1.5-6.6 [facility] Comment on above: Performed By: #### C BCA, CMP #### [facility] ([id number]) [address], [address] [place] [address] Basophils/100 WBC (Bld) 1.1 % Normal [facility] Comment on above: Performed By: #### C HEATH, CMP #### [facility] ([id number]) [address], [address] [place] [address] Eosinophils (Bld) [#/Vol] 0.1 10*3/uL Normal 0.0-0.4 [facility] Comment on above: Performed By: #### C HEATH, CMP #### [facility] ([id number]) [address], [address] [place] [address] Eosinophils/100 WBC (Bld) 2.7 % Normal [facility] Comment on above: Performed By: #### C HEATH, CMP #### [facility] ([id number]) [address], [address] [place] [address] Erythrocyte distribution width (RBC) [Ratio] 18.7 % High 11.5-15.0 [facility] Comment on above: Performed By: #### C BCA, CMP #### [facility] ([id number]) [address], [address] [place] [address] Hematocrit (Bld) [Volume fraction] 31.3 % Low 35-47 [facility] Comment on above: Performed By: #### C BCA, CMP #### [facility] ([id number]) [address], [address] [place] [address] Hemoglobin (Bld) [Mass/Vol] 9.9 g/dL Low 11.7-15.5 [facility] Comment on above: Performed By: #### C BCA, CMP #### [facility] ([id number]) [address] [address] [place] [address] Lymphocytes (Bld) [#/Vol] 2.2 10*3/uL Normal 1.0-3.5 [facility] Comment on above: Performed By: #### C BCA, CMP #### [facility] ([id number]) [address], [facility] [address] [place] [address] Lymphocytes/100 WBC (Bld) 42.4 % Normal [facility] Comment on above: Performed By: #### C BCA, CMP #### [facility] ([id number]) [address] [address] [place] [address] MCH (RBC) [Entitic mass] 23.2 pg Low 27-34 [facility] Comment on above: Performed By: #### C BCA, CMP #### [facility] ([id number]) [address], [address] [place] [address] MCHC (RBC) [Mass/Vol] 31.7 g/dL Low 32-36 [facility] Comment on above: Performed By: #### C BCA, CMP #### [facility] ([id number]) [address], [address] [place] [address] MCV (RBC) [Entitic vol] 73 fL Low 80-100 P [facility] Comment on above: Performed By: #### C BCA, CMP #### [facility] ([id number]) [address] [address] [place] [address] Monocytes (Bld) [#/Vol] 0.4 10*3/uL Normal 0-0.9 [facility] Comment on above: Performed By: #### C BCA, CMP #### [facility] ([id number]) [address], [address] [place] [address] Monocytes/100 WBC (Bld) 7.9 % Normal [facility] Comment on above: Performed By: #### C HEATH, CMP #### [facility] ([id number]) [address], [facility] [address] [place] [address] Neutrophils/100 WBC (Bld) 45.9 % Normal [facility] Comment on above: Performed By: #### C HEATH, CMP #### [facility] ([id number]) [address] [address] [place] [address] Platelet mean volume (Bld) [Entitic vol] 8.0 fL Normal 7-12 [facility] Comment on above: Performed By: #### Leila JOE, CMP #### [facility] ([id number]) [address] [address] Platelets (Bld) [#/Vol] 457 10*3/uL High 150-450 [facility] Comment on above: Performed By: #### C HEATH, CMP #### [facility] ([id number]) [address] [address] RBC COUNT 4.28 X10E12/L Normal 3.80-5.20 [facility] Comment on above: Performed By: #### C HEATH, CMP #### [facility] ([id number]) [address] [address] WBC (Bld) [#/Vol] 5.2 10*3/uL Normal 4.0-11.0 [facility] Comment on above: Performed By: #### C HEATH, CMP #### [facility] ([id number]) [address] [address] [place] [address] CBC auto differentialon 03-13 Basophils (Bld) [#/Vol] 0.1 10*3/uL [facility] Basophils/100 WBC (Bld) 1.1 % P [facility] Eosinophils (Bld) [#/Vol] 0.1 10*3/uL [facility] Eosinophils/100 WBC (Bld) 2.7 % [facility] Erythrocyte distribution width (RBC) [Ratio] 18.7 % High 11.5 - 15.0 % [facility] Hematocrit (Bld) [Volume fraction] 31.3 % Low 35 - 47 % [facility] Hemoglobin (Bld) [Mass/Vol] 9.9 g/dL Low 11.7 - 15.5 g/dL [facility] Interpretation and review of laboratory results Abnormal [facility] Lymphocytes (Bld) [#/Vol] 2.2 10*3/uL [facility] Lymphocytes/100 WBC (Bld) 42.4 % [facility] MCH (RBC) [Entitic mass] 23.2 pg Low 27 - [address] [facility] MCHC (RBC) [Mass/Vol] 31.7 g/dL Low 32 - 36 g/dL P [facility] MCV (RBC) [Entitic vol] 73 fL Low 80 - [address] [facility] Monocytes (Bld) [#/Vol] 0.4 10*3/uL [facility] Monocytes/100 WBC (Bld) 7.9 % P [facility] Neutrophils (Bld) [#/Vol] 2.4 10*3/uL [facility] Neutrophils/100 WBC (Bld) 45.9 % [facility] Platelet mean volume (Bld) [Entitic vol] 8 fL 7 - [address] [facility] Platelets (Bld) [#/Vol] 457 10*3/uL High [facility] RBC (Bld) [#/Vol] 4.28 10*6/uL [facility] WBC corrected for nucl RBC Auto (Bld) [#/Vol] 5.[address] [facility] COMPREHENSIVE METABOLIC PANE Van 03-28-2024 Albumin [Mass/Vol] 4.0 g/dL Normal 3.2-5.3 [facility] Comment on above: Performed By: #### C BCA, CMP #### [facility] ([id number]) [address], [address] [place] [address] ALP [Catalytic activity/Vol] 61 U/L Normal 39-130 [facility] Comment on above: Performed By: #### C BCA, CMP #### [facility] ([id number]) [address], [address] [place] [address] ALT [Catalytic activity/Vol] 12 U/L Normal 0-31 [facility] Comment on above: Performed By: #### C BCA, CMP #### [facility] ([id number]) [address], [address] [place] [address] Anion gap [Moles/Vol] 10 mmol/L Normal 5-15 [facility] Comment on above: Performed By: #### C BCA, CMP #### [facility] ([id number]) [address], [address] [place] [address] AST [Catalytic activity/Vol] 14 U/L Normal 0-41 [facility] Comment on above: Performed By: #### C BCA, CMP #### [facility] ([id number]) [address], [address] [place] [address] Bilirubin [Mass/Vol] 0.3 mg/dL Normal 0.3-1.2 [facility] Comment on above: Performed By: #### C BCA, CMP #### [facility] ([id number]) [address], [address] [place] [address] Calcium [Mass/Vol] 9.0 mg/dL Normal 8.5-10.5 [facility] Comment on above: Performed By: #### C BCA, CMP #### [facility] ([id number]) [address], [address] [place] [address] Chloride [Moles/Vol] 107 mmol/L Normal 98-109 [facility] Comment on above: Performed By: #### C BCA, CMP #### [facility] ([id number]) [address] [address] [place] [address] CO2 [Moles/Vol] 24 mmol/L Normal 22-32 [facility] Comment on above: Performed By: #### C BCA, CMP #### [facility] ([id number]) [address], [address] [place] [address] Creatinine [Mass/Vol] 0.72 mg/dL Normal 0.40-1.00 [facility] Comment on above: Result Comment: METH OD TRACEABLE TO IDMS STANDARD Performed By: #### C BCA, CMP #### [facility] ([id number]) [address] [address] [place] [address] eGFR (CKD-EPI) NON-RACE DEPENDENT >90 Normal >59 [facility] Comment on above: Result Comment: Reported eGFR is based on the CKD-EPI 2020 equation that does not use a race coefficient. Performed By: #### C BCA, CMP #### [facility] ([id number]) [address] [address] [place] [address] Glucose [Mass/Vol] 101 mg/dL High 65-99 [facility] Comment on above: Performed By: #### C BCA, CMP #### [facility] ([id number]) [address] [address] [place] [address] Potassium [Moles/Vol] 3.9 mmol/L Normal 3.5-5.0 [facility] Comment on above: Performed By: #### C BCA, CMP #### [facility] ([id number]) [address], [address] [place] [address] Protein [Mass/Vol] 6.9 g/dL Normal 6.0-8.0 [facility] Comment on above: Performed By: #### C BCA, CMP #### [facility] ([id number]) [address], [address] [place] [address] Sodium [Moles/Vol] 141 mmol/L Normal 134-146 [facility] Comment on above: Performed By: #### C BCA, CMP #### [facility] ([id number]) [address], [address] [place] [address] Urea nitrogen [Mass/Vol] 10 mg/dL Normal 5-23 [facility] Comment on above: Performed By: #### C BCA, CMP #### [facility] ([id number]) [address], [address] [place] [address] Comprehensive metabolic pane van 03-28-2024 Albumin [Mass/Vol] 4 g/dL 3.2 - 5.3 g/dL [facility] ALP [Catalytic activity/Vol] 61 U/L 39 - 130 U/L [facility] ALT No additional P-5'-P [Catalytic activity/Vol] 12 U/L 0 - 31 U/L [facility] Anion gap [Moles/Vol] 10 mmol/L 5 - 15 mmol/L [facility] AST [Catalytic activity/Vol] 14 U/L 0 - 41 U/L [facility] Bilirubin [Mass/Vol] 0.3 mg/dL 0.3 - 1 .2 mg/dL [facility] Calcium [Mass/Vol] 9 mg/dL 8.5 - 10. 5 mg/dL [facility] Chloride [Moles/Vol] 107 mmol/L 98 - 10 9 mmol/L [facility] CO2 [Moles/Vol] 24 mmol/L 22 - 32 mmol/L [facility] Creatinine [Mass/Vol] 0.72 mg/dL 0.40 - 1.00 mg/dL [facility] Comment on above: METHOD TRACEABLE TO IDMS STANDARD eGFR (CKD-EPI)non-race dependent - PINF [facility] Comment on above: Reported eGFR is based on the CKD-EPI 2020 equation that does not use a race coefficient. Glucose [Mass/Vol] 101 mg/dL High 65 - 99 mg/dL [facility] Interpretation and review of laboratory results Abnormal [facility] Potassium [Moles/Vol] 3.9 mmol/L 3.5 - 5.0 mmol/L [facility] Protein [Mass/Vol] 6.9 g/dL 6.0 - 8.0 g/dL [facility] Sodium [Moles/Vol] 141 mmol/L 134 - 146 mmol/L [facility] Urea nitrogen [Mass/Vol] 10 mg/dL 5 - 23 mg/dL [facility] CBC AND AUTO DIFFon 03-07-20 ABSOLUTE BASOPHIL 0.1 X10E9/L Normal 0.0-0.2 [facility] Comment on above: Performed By: #### N UM #### [facility] ([id number]) [address] [place] [address] ABSOLUTE NEUTROPHIL 3.0 X10E9/L Normal 1.5-6.6 [facility] Comment on above: Performed By: #### N UM #### [facility] ([id number]) [address] [place] [address] Basophils/100 WBC (Bld) 1.1 % Normal [facility] Comment on above: Performed By: #### N UM #### [facility] ([id number]) [address] [place] [address] Eosinophils (Bld) [#/Vol] 0.1 10*3/uL Normal 0.0-0.4 [facility] Comment on above: Performed By: #### N UM #### [facility] ([id number]) [address] [place] [address] Eosinophils/100 WBC (Bld) 1.0 % Normal [facility] Comment on above: Performed By: #### N UM #### [facility] ([id number]) [address] [place] [address] Erythrocyte distribution width (RBC) [Ratio] 17.6 % High 11.5-15.0 [facility] Comment on above: Performed By: #### N UM #### [facility] ([id number]) [address] [place] [address] 54668 Hematocrit (Bld) [Volume fraction] 34.1 % Low 35-47 [facility] Comment on above: Performed By: #### N UM #### [facility] ([id number]) [address] [place] [address] 63660 Hemoglobin (Bld) [Mass/Vol] 10.9 g/dL Low 11.7-15.5 [facility] Comment on above: Performed By: #### N UM #### [facility] ([id number]) [address] [place] [address] 01903 Lymphocytes (Bld) [#/Vol] 2.0 10*3/uL Normal 1.0-3.5 [facility] Comment on above: Performed By: #### N UM #### [facility] ([id number]) [address] [place] [address] 30292 Lymphocytes/100 WBC (Bld) 36.4 % Normal [facility] Comment on above: Performed By: #### N UM #### [facility] ([id number]) [address] [place] [address] 39568 MCH (RBC) [Entitic mass] 22.7 pg Low 27-34 [facility] Comment on above: Performed By: #### N UM #### [facility] ([id number]) [address] [place] [address] [place] [address] MCHC (RBC) [Mass/Vol] 31.8 g/dL Low 32-36 [facility] Comment on above: Performed By: #### N UM #### [facility] ([id number]) [address] [place] [address] 80472 MCV (RBC) [Entitic vol] 71 fL Low 80-100 P [facility] Comment on above: Performed By: #### N UM #### [facility] ([id number]) [address] [place] [address] 17821 Monocytes (Bld) [#/Vol] 0.4 10*3/uL Normal 0-0.9 [facility] Comment on above: Performed By: #### N UM #### [facility] ([id number]) [address] [place] [address] 95226 Monocytes/100 WBC (Bld) 6.9 % Normal [facility] Comment on above: Performed By: #### N UM #### [facility] ([id number]) [address] [place] [address] 43161 Neutrophils/100 WBC (Bld) 54.6 % Normal [facility] Comment on above: Performed By: #### N UM #### [facility] ([id number]) [address] [place] [address] 84626 Platelet mean volume (Bld) [Entitic vol] 7.7 fL Normal 7-12 [facility] Comment on above: Performed By: #### N UM #### [facility] ([id number]) [address] [place] [address] 53467 Platelets (Bld) [#/Vol] 514 10*3/uL High 150-450 [facility] Comment on above: Performed By: #### N UM #### [facility] ([id number]) [address] [place] [address] [place] [address] RBC COUNT 4.78 X10E12/L Normal 3.80-5.20 [facility] Comment on above: Performed By: #### N UM #### [facility] ([id number]) [address] [place] [address] 50766 WBC (Bld) [#/Vol] 5.5 10*3/uL Normal 4.0-11.0 [facility] Comment on above: Performed By: #### N UM #### [facility] ([id number]) [address] [place] [address] 31044 COMPREHENSIVE METABOLIC PANE Van 03-07-2024 Albumin [Mass/Vol] 4.5 g/dL Normal 3.2-5.3 [facility] Comment on above: Performed By: #### N UM #### [facility] ([id number]) [address] [place] [address] 63051 ALP [Catalytic activity/Vol] 64 U/L Normal 39-130 [facility] Comment on above: Performed By: #### N UM #### [facility] ([id number]) [address] [place] [address] 73432 ALT [Catalytic activity/Vol] 18 U/L Normal 0-31 [facility] Comment on above: Performed By: #### N UM #### [facility] ([id number]) [address] [place] [address] 87098 Anion gap [Moles/Vol] 8 mmol/L Normal 5-15 [facility] Comment on above: Performed By: #### N UM #### [facility] ([id number]) [address] [place] [address] 44411 AST [Catalytic activity/Vol] 19 U/L Normal 0-41 [facility] Comment on above: Performed By: #### N UM #### [facility] ([id number]) [address] [place] [address] 88747 Bilirubin [Mass/Vol] 0.7 mg/dL Normal 0.3-1.2 [facility] Comment on above: Performed By: #### N UM #### [facility] ([id number]) [address] [place] [address] 45521 Calcium [Mass/Vol] 9.4 mg/dL Normal 8.5-10.5 [facility] Comment on above: Performed By: #### N UM #### [facility] ([id number]) [address] [place] [address] 20207 Chloride [Moles/Vol] 105 mmol/L Normal 98-109 [facility] Comment on above: Performed By: #### N UM #### [facility] ([id number]) [address] [place] [address] 95798 CO2 [Moles/Vol] 21 mmol/L Low 22-32 [facility] Comment on above: Performed By: #### N UM #### [facility] ([id number]) [address] [place] [address] 20031 Creatinine [Mass/Vol] 0.68 mg/dL Normal 0.40-1.00 [facility] Comment on above: Result Comment: METH OD TRACEABLE TO IDMS STANDARD Performed By: #### N UM #### [facility] ([id number]) [address] [place] [address] [place] [address] eGFR (CKD-EPI) NON-RACE DEPENDENT >90 Normal >59 [facility] Comment on above: Result Comment: Reported eGFR is based on the CKD-EPI 2020 equation that does not use a race coefficient. Performed By: #### N UM #### [facility] ([id number]) [address] [place] [address] 60162 Glucose [Mass/Vol] 107 mg/dL High 65-99 [facility] Comment on above: Performed By: #### N UM #### [facility] ([id number]) [address] [place] [address] 49653 Potassium [Moles/Vol] 3.8 mmol/L Normal 3.5-5.0 [facility] Comment on above: Performed By: #### N UM #### [facility] ([id number]) [address] [place] [address] 45393 Protein [Mass/Vol] 8.6 g/dL High 6.0-8.0 [facility] Comment on above: Performed By: #### N UM #### [facility] ([id number]) [address] [place] [address] 28067 Sodium [Moles/Vol] 134 mmol/L Normal 134-146 [facility] Comment on above: Performed By: #### N UM #### [facility] ([id number]) [address] [place] [address] 72316 Urea nitrogen [Mass/Vol] 10 mg/dL Normal 5-23 [facility] Comment on above: Performed By: #### N UM #### [facility] ([id number]) [address] [place] [address] 22113 HCG ( test) Ql (U)o n 03-07-2024 Beta HCG ( test) Ql (U) Negative Normal NEG [facility] Comment on above: Performed By: #### C BCA, CMP #### [facility] ([id number]) [address] [place] [address], [place] [address] URN MACROSCOPIC NURon 2023 BILIRUBIN AUDREY Negative Normal NEG [facility] Comment on above: Performed By: #### C BCA, CMP #### [facility] ([id number]) [address] [place] [address] [place] [address] BLOOD/HGB AUDREY Trace Abnormal NEG [facility] Comment on above: Performed By: #### C BCA, CMP #### [facility] ([id number]) [address] [place] [address] [place] [address] GLUCOSE AUDREY Negative Normal NEG [facility] Comment on above: Performed By: #### C BCA, CMP #### [facility] ([id number]) [address] [place] [address] [place] [address] KETONES AUDREY Negative Normal NEG [facility] Comment on above: Performed By: #### C BCA, CMP #### [facility] ([id number]) [address] [place] [address] 89479 LEUKOCYTE ESTERASE AUDREY Negative Normal NEG Pr [facility] Comment on above: Performed By: #### C BCA, CMP #### [facility] ([id number]) [address] [place] [address] 88443 NITRITE AUDREY Negative Normal NEG [facility] Comment on above: Performed By: #### C BCA, CMP #### [facility] ([id number]) [address] [place] [address] 10544 PH AUDREY 6.0 Normal 5.0-8.5 [facility] Comment on above: Performed By: #### C BCA, CMP #### [facility] ([id number]) [address] [place] [address] 90289 PROTEIN AUDREY Negative Normal NEG [facility] Comment on above: Performed By: #### C BCA, CMP #### [facility] ([id number]) [address] [place] [address] 00928 SPECIFIC GRAVITY AUDREY 1.010 Normal 1.003-1.035 [facility] Comment on above: Performed By: #### C BCA, CMP #### [facility] ([id number]) [address] [place] [address] 78140 UROBILINOGEN AUDREY 0.2 eu/dL Normal <1.1 [facility] Comment on above: Performed By: #### C BCA, CMP #### [facility] ([id number]) [address] [place] [address] 46899 CBCon 02-24-2024 ABSOLUTE BAS 0.1 10*3/uL Normal 0.0-0.2 [facility] ABSOLUTE EOS 0.2 10*3/uL Normal 0.0-0.7 [facility] ABSOLUTE NEUTROPHIL COUNT 3.2 10*3/uL Normal 1.4-6.5 [facility] Basophils/100 WBC (Bld) 0.7 % Normal 0.0-2.0 [facility] DTYPE AUTO DIFF Normal [facility] Eosinophils/100 WBC (Bld) 2.3 % Normal 0.0-11.0 [facility] Lymphocytes (Bld) [#/Vol] 3.5 10*3/uL High 1.2-3.4 [facility] Lymphocytes/100 WBC (Bld) 47.1 % Normal 20.0-55.0 [facility] Monocytes (Bld) [#/Vol] 0.5 10*3/uL Normal 0.0-0.7 [facility] Monocytes/100 WBC (Bld) 7.4 % Normal 0.0-10.0 [facility] Neutrophils/100 WBC (Bld) 42.5 % Normal 37.0-75.0 [facility] Erythrocyte distribution width (RBC) [Ratio] 17.1 % High 11.5-14.5 [facility] Hematocrit (Bld) [Volume fraction] 33.6 % Low 36.0-48.0 [facility] Hemoglobin (Bld) [Mass/Vol] 10.3 g/dL Low 12.0-16.0 [facility] MCH (RBC) [Entitic mass] 22.7 pg Low 26.0-35.0 [facility] MCHC (RBC) [Mass/Vol] 30.8 g/dL Normal 27.0-37.0 [facility] MCV (RBC) [Entitic vol] 73.5 fL Low 80.0-100.0 [facility] Platelet mean volume (Bld) [Entitic vol] 7.9 fL Normal 7.4-11.0 [facility] Platelets (Bld) [#/Vol] 466 10*3/uL High 130-400 [facility] RBC (Bld) [#/Vol] 4.57 10*6/uL Normal 4.0-5.4 [facility] WBC (Bld) [#/Vol] 7.4 10*3/uL Normal 3.6-11.0 [facility] CBC, EDIF, PLATELETon 2023 ABSOLUTE BASOPHIL COUNT 0.1 10*3/uL 0.0 - 0.2 10*3/uL [facility] Basophils/100 WBC (Bld) 0.7 % 0.0 - 2.0 % [facility] Differential cell count method Nom (Bld) AUTO DIFF % [facility] Eosinophils (Bld) [#/Vol] 0.2 10*3/uL 0.0 - 0.7 10*3/uL [facility] Eosinophils/100 WBC (Bld) 2.3 % 0.0 - 11.0 % [facility] Erythrocyte distribution width (RBC) [Ratio] 17.1 % High 11.5 - 14.5 % [facility] Hematocrit (Bld) [Volume fraction] 33.6 % Low 36.0 - 48.0 % [facility] Hemoglobin (Bld) [Mass/Vol] 10.3 g/dL Low [facility] Interpretation and review of laboratory results Abnormal [facility] Lymphocytes (Bld) [#/Vol] 3.5 10*3/uL High 1.2 - 3.4 10*3/uL [facility] Lymphocytes/100 WBC (Bld) 47.1 % 20.0 - 55.0 % [facility] MCH (RBC) [Entitic mass] 22.7 pg Low 26.0 - 35.0 PG [facility] MCHC (RBC) [Mass/Vol] 30.8 g/dL [facility] MCV (RBC) [Entitic vol] 73.5 fL Low A [facility] Monocytes (Bld) [#/Vol] 0.5 10*3/uL 0.0 - 0.7 10*3/uL [facility] Monocytes/100 WBC (Bld) 7.4 % 0.0 - 10.0 % [facility] Neutrophils (Bld) [#/Vol] 3.2 10*3/uL 1.4 - 6.5 10*3/uL [facility] Neutrophils/100 WBC (Bld) 42.5 % 37.0 - 75.0 % [facility] Platelet mean volume (Bld) [Entitic vol] 7.9 fL [facility] Platelets (Bld) [#/Vol] 466 10*3/uL High 130 - 400 10*3/uL [facility] RBC (Bld) [#/Vol] 4.57 10*6/uL 4.0 - 5.4 10*6/uL [facility] WBC (Bld) [#/Vol] 7.4 10*3/uL 3.6 - 11.0 10*3/uL [facility] CMP FASTINGon 02-24-2024 A:G RATIO 1.1 RATIO Low 1.3-2.2 [facility] ALBUMIN 4.1 G/dl Normal 3.5-5.0 [facility] ALP [Catalytic activity/Vol] 62 U/L Normal 38-126 [facility] ALT [Catalytic activity/Vol] 23 U/L Normal <35 [facility] AST [Catalytic activity/Vol] 45 U/L High 14-36 [facility] Bilirubin [Mass/Vol] 0.3 mg/dL Normal 0.2-1.3 [facility] Calcium [Mass/Vol] 8.8 mg/dL Normal 8.4-10.2 [facility] Chloride [Moles/Vol] 110 mmol/L High 98-107 [facility] Comment on above: Result Comment: Salvador carlson note: Triglyceride levels of 600mg/dL or higher may positively bias chloride results by approximately 2.1 mmol CO2 [Moles/Vol] 23 mmol/L Normal 22-30 [facility] Creatinine [Mass/Vol] 0.80 mg/dL Normal 0.7-1.2 [facility] EST. GFR, 104 ml/min/1.73sq.m [facility] EST. GFR,Non 86 ml/min/1.73sq.m [facility] GFR Information Average GFR for 30-39 years old = 107. [facility] Comment on above: Result Comment: Home Agent franklin Kidney disease, GFR = <60. Kidney failure, GFR = <15. The GFR estimate is not adjusted for extreme body surface area or acute process, nor has it been validated for women or ethnic groups other than and . Glucose [Mass/Vol] 81 mg/dL Normal 70-100 [facility] Comment on above: Result Comment: NORMAL <100 mg/dL PREDIABETES 101-126 mg/dL DIABETES 126 mg/dL or higher Potassium [Moles/Vol] 3.9 mmol/L Normal 3.5-5.1 [facility] Protein [Mass/Vol] 7.7 g/dL Normal 6.3-8.2 [facility] Sodium [Moles/Vol] 141 mmol/L Normal 137-145 [facility] Urea nitrogen [Mass/Vol] 9 mg/dL Normal 7-20 [facility] COMPREHENSIVE METABOLIC PANE Van 02-24-2024 Albumin [Mass/Vol] 4.1 G/dl 3.5 - 5.0 G/dl [facility] Albumin/Globulin [Mass ratio] 1.1 {ratio} Low [facility] ALP [Catalytic activity/Vol] 62 U/L [facility] ALT [Catalytic activity/Vol] 23 U/L NINF [facility] AST [Catalytic activity/Vol] 45 U/L High [facility] Bilirubin [Mass/Vol] 0.3 mg/dL [facility] Calcium [Mass/Vol] 8.8 mg/dL [facility] Chloride [Moles/Vol] 110 mmol/L High [facility] Comment on above: Please note: Triglyc eride levels of 600mg/dL or higher may positively bias chloride results by approximately 2.1 mmol CO2 [Moles/Vol] 23 mmol/L [facility] Creatinine [Mass/Vol] 0.80 mg/dL [facility] GFR COMMENT Average GFR for 30-39 years old = 107. [facility] Comment on above: Chronic Kidney disea se, GFR = <60. Kidney failure, GFR = <15. The GFR estimate is not adjusted for extreme body surface area or acute process, nor has it been validated for women or ethnic groups other than and . GFR/1.73 sq M.predicted among blacks MDRD (S/P/Bld) [Vol rate/Area] 104 mL/min/{1.73_m2} ml/min/1.73s q.m [facility] GFR/1.73 sq M.predicted among non-blacks MDRD (S/P/Bld) [Vol rate/Area] 86 mL/min/{1.73_m2} ml/min/1.73s q.m [facility] Glucose post fast [Mass/Vol] 81 mg/dL [facility] Comment on above: NORMAL <100 mg/dL PREDIABETES 101-126 mg/dL DIABETES 126 mg/dL or higher Interpretation and review of laboratory results Abnormal [facility] Potassium [Moles/Vol] 3.9 mmol/L [facility] Protein [Mass/Vol] 7.7 g/dL [facility] Sodium [Moles/Vol] 141 mmol/L [facility] Urea nitrogen [Mass/Vol] 9 mg/dL [facility] HCG ( test) Ql (U)o n 02-24-2024 [facility] HCG QUALITATIVE, URINEon HCG ( test) Ql (U) Negative [facility] No Panel Informationon 02-23 Interpretation and review of laboratory results Abnormal [facility] URINALYSIS, MACROon 02-24-20 24 Bilirubin Ql (U) Negative NEGATIVE [facility] Clarity (U) CLEAR CLEAR [facility] Color (U) YELLOW YELLOW [facility] Glucose Test strip (U) [Mass/Vol] Negative NEGATIVE mg/dl [facility] Hemoglobin Ql (U) Negative NEGATIVE [facility] ealt System Ketones (U) [Mass/Vol] Negative NEGAT NAYE mg/dl [facility] Leukocyte esterase Test strip Ql (U) MODERATE Abnormal NEGATIVE [facility] Nitrite Ql (U) Negative NEGATIVE [facility] pH (U) 6.0 [pH] 5.0 - 7.0 [facility] Protein Ql (U) Negative NEGATIVE mg/dl [facility] Specific gravity (U) [Rel density] 1.010 1.010 - 1.025 [facility] Urobilinogen (U) [Mass/Vol] 0.2 mg/dL [facility] URINE HCG QUALon 02-24-2024 Beta HCG ( test) Ql (U) Negative Normal [facility] URINE MACROSCOPICon 02-24-20 24 Bilirubin Ql (U) Negative Normal NEGATIVE [facility] Clarity (U) CLEAR Normal CLEAR [facility] Color (U) YELLOW Normal YELLOW [facility] Glucose Ql (U) Negative Normal NEGATIVE [facility] pH (U) 6.0 [pH] Normal 5.0-7.0 [facility] URINE HEMOGLOBIN Negative Normal NEGATIVE [facility] URINE KETONE Negative Normal NEGATIVE [facility] URINE LEUKOTEST MODERATE Abnormal NEGATIVE [facility] URINE NITRATES Negative Normal NEGATIVE [facility] URINE SPEC GRAVITY 1.010 Normal 1.010-1.025 [facility] URINE TOTAL PROTEIN Negative Normal NEGATIVE [facility] Urobilinogen Qn (U) 0.2 {Ivone'U}/dL Normal 0.2-1.0 [facility] URINE MICROSCOPICon 02-24-20 24 Bacteria LM.HPF (Urine sed) [#/Area] TRACE Abnormal NEGATIVE [facility] Casts LM.LPF (Urine sed) [#/Area] NONE NONE /LPF [facility] Crystals LM Nom (Urine sed) NONE NONE [facility] Epithelial cells LM Ql (Urine sed) 5 TO 10 /HPF [facility] Mucus Ql (Urine sed) Negative NEGATIVE [facility] RBC LM.HPF (Urine sed) [#/Area] Negative NEGATIVE /HPF [facility] Urine sediment comments LM Edson (Urine sed) CULTURE CRITERIA NOT MET, NO CULTURE PERFORMED. [facility] WBC LM.HPF (Urine sed) [#/Area] 1 TO 5 NEGATIVE /HPF [facility] BACTERIA TRACE Abnormal NEGATIVE [facility] CASTS NONE Normal NONE [facility] CRYSTAL NONE Normal NONE [facility] Epithelial cells LM Ql (Urine sed) 5 TO 10 Normal [facility] Mucus Ql (Urine sed) Negative Normal NEGATIVE [facility] URINE COMMENT CULTURE CRITERIA NOT MET, NO CULTURE PERFORMED. Normal [facility] URINE RBC'S Negative Normal NEGATIVE [facility] URINE WBC'S 1 TO 5 Normal NEGATIVE [facility] CBCon 02-16-2024 ABSOLUTE BAS 0.1 10*3/uL Normal 0.0-0.2 [facility] ABSOLUTE EOS 0.0 10*3/uL Normal 0.0-0.7 [facility] ABSOLUTE NEUTROPHIL COUNT 2.7 10*3/uL Normal 1.4-6.5 [facility] Basophils/100 WBC (Bld) 1.4 % Normal 0.0-2.0 [facility] DTYPE AUTO DIFF Normal [facility] Eosinophils/100 WBC (Bld) 0.5 % Normal 0.0-11.0 [facility] Lymphocytes (Bld) [#/Vol] 2.1 10*3/uL Normal 1.2-3.4 [facility] Lymphocytes/100 WBC (Bld) 40.3 % Normal 20.0-55.0 [facility] Monocytes (Bld) [#/Vol] 0.3 10*3/uL Normal 0.0-0.7 [facility] Monocytes/100 WBC (Bld) 5.6 % Normal 0.0-10.0 [facility] Neutrophils/100 WBC (Bld) 52.2 % Normal 37.0-75.0 [facility] Erythrocyte distribution width (RBC) [Ratio] 17.0 % High 11.5-14.5 [facility] Hematocrit (Bld) [Volume fraction] 35.2 % Low 36.0-48.0 [facility] Hemoglobin (Bld) [Mass/Vol] 10.9 g/dL Low 12.0-16.0 [facility] MCH (RBC) [Entitic mass] 22.6 pg Low 26.0-35.0 [facility] MCHC (RBC) [Mass/Vol] 30.9 g/dL Normal 27.0-37.0 [facility] MCV (RBC) [Entitic vol] 73.0 fL Low 80.0-100.0 [facility] Platelet mean volume (Bld) [Entitic vol] 7.3 fL Low 7.4-11.0 [facility] Platelets (Bld) [#/Vol] 529 10*3/uL High 130-400 [facility] RBC (Bld) [#/Vol] 4.81 10*6/uL Normal 4.0-5.4 [facility] WBC (Bld) [#/Vol] 5.1 10*3/uL Normal 3.6-11.0 [facility] CBC, EDIF, PLATELETon 2023 ABSOLUTE BASOPHIL COUNT 0.1 10*3/uL 0.0 - 0.2 10*3/uL [facility] Basophils/100 WBC (Bld) 1.4 % 0.0 - 2.0 % [facility] Differential cell count method Nom (Bld) AUTO DIFF % [facility] Eosinophils (Bld) [#/Vol] 0.0 10*3/uL 0.0 - 0.7 10*3/uL [facility] Eosinophils/100 WBC (Bld) 0.5 % 0.0 - 11.0 % [facility] Erythrocyte distribution width (RBC) [Ratio] 17.0 % High 11.5 - 14.5 % [facility] Hematocrit (Bld) [Volume fraction] 35.2 % Low 36.0 - 48.0 % [facility] Hemoglobin (Bld) [Mass/Vol] 10.9 g/dL Low [facility] Interpretation and review of laboratory results Abnormal [facility] Lymphocytes (Bld) [#/Vol] 2.1 10*3/uL 1.2 - 3.4 10*3/uL [facility] Lymphocytes/100 WBC (Bld) 40.3 % 20.0 - 55.0 % [facility] MCH (RBC) [Entitic mass] 22.6 pg Low 26.0 - 35.0 PG [facility] MCHC (RBC) [Mass/Vol] 30.9 g/dL [facility] MCV (RBC) [Entitic vol] 73.0 fL Low A [facility] Monocytes (Bld) [#/Vol] 0.3 10*3/uL 0.0 - 0.7 10*3/uL [facility] Monocytes/100 WBC (Bld) 5.6 % 0.0 - 10.0 % [facility] Neutrophils (Bld) [#/Vol] 2.7 10*3/uL 1.4 - 6.5 10*3/uL [facility] Neutrophils/100 WBC (Bld) 52.2 % 37.0 - 75.0 % [facility] Platelet mean volume (Bld) [Entitic vol] 7.3 fL Low [facility] Platelets (Bld) [#/Vol] 529 10*3/uL High 130 - 400 10*3/uL [facility] RBC (Bld) [#/Vol] 4.81 10*6/uL 4.0 - 5.4 10*6/uL [facility] WBC (Bld) [#/Vol] 5.1 10*3/uL 3.6 - 11.0 10*3/uL [facility] CHEM 7 FASTINGon 02-16-2024 Chloride [Moles/Vol] 109 mmol/L High 98-107 [facility] Comment on above: Result Comment: Salvador carlson note: Triglyceride levels of 600mg/dL or higher may positively bias chloride results by approximately 2.1 mmol CO2 [Moles/Vol] 22 mmol/L Normal 22-30 [facility] Creatinine [Mass/Vol] 0.70 mg/dL Normal 0.7-1.2 [facility] EST. GFR, 121 ml/min/1.73sq.m [facility] EST. GFR,Non 100 ml/min/1.73sq.m [facility] GFR Information Average GFR for 30-39 years old = 107. Normal [facility] Comment on above: Result Comment: Home Agent franklin Kidney disease, GFR = <60. Kidney failure, GFR = <15. The GFR estimate is not adjusted for extreme body surface area or acute process, nor has it been validated for women or ethnic groups other than and . Glucose [Mass/Vol] 106 mg/dL High 70-100 [facility] Comment on above: Result Comment: NORMAL <100 mg/dL PREDIABETES 101-126 mg/dL DIABETES 126 mg/dL or higher Potassium [Moles/Vol] 3.8 mmol/L Normal 3.5-5.1 [facility] Sodium [Moles/Vol] 139 mmol/L Normal 137-145 [facility] Urea nitrogen [Mass/Vol] 8 mg/dL Normal 7-20 [facility] CHEM 7 (LYTES,BUN,CREA,GLUC) on 02-16-2024 Chloride [Moles/Vol] 109 mmol/L High [facility] Comment on above: Please note: Triglyc eride levels of 600mg/dL or higher may positively bias chloride results by approximately 2.1 mmol CO2 [Moles/Vol] 22 mmol/L [facility] Creatinine [Mass/Vol] 0.70 mg/dL [facility] GFR COMMENT Average GFR for 30-39 years old = 107. [facility] Comment on above: Chronic Kidney disea se, GFR = <60. Kidney failure, GFR = <15. The GFR estimate is not adjusted for extreme body surface area or acute process, nor has it been validated for women or ethnic groups other than and . GFR/1.73 sq M.predicted among blacks MDRD (S/P/Bld) [Vol rate/Area] 121 mL/min/{1.73_m2} ml/min/1.73s q.m [facility] GFR/1.73 sq M.predicted among non-blacks MDRD (S/P/Bld) [Vol rate/Area] 100 mL/min/{1.73_m2} ml/min/1.73s q.m [facility] Glucose post fast [Mass/Vol] 106 mg/dL High [facility] Comment on above: NORMAL <100 mg/dL PREDIABETES 101-126 mg/dL DIABETES 126 mg/dL or higher Potassium [Moles/Vol] 3.8 mmol/L [facility] Sodium [Moles/Vol] 139 mmol/L [facility] Urea nitrogen [Mass/Vol] 8 mg/dL [facility] CT ABDOMEN/PELVIS WITH CONTR Agustín 02-16-2024 CT ABDOMEN/PELVIS WITH CONTRAST EXAM: CT ABDOMEN/PELVIS WITH CONTRAST TECHNIQUE: Axial CT images were obtained of the abdomen and pelvis with intravenous contrast. Sagittal and coronal reformatted images were also obtained. Dose reduction techniques were achieved by using automated exposure control and/or adjustment of mA and/or kV according to patient size and/or use of iterative reconstruction technique. HISTORY: Right lower quadrant abdominal pain COMPARISON: CT abdomen and pelvis: 09/20/2023 __ FINDINGS: Lower chest: The lower lungs are clear. Liver: The liver is homogeneous with normal contours and normal size. Gallbladder: Status post cholecystectomy. Mild central biliary dilatation is likely within normal limits, following cholecystectomy. Pancreas: The pancreas is homogeneous without evidence for mass lesion or inflammation. Spleen: The spleen is unremarkable without evidence for mass lesion. Adrenal glands: The adrenal glands are unremarkable Kidneys and bladder: The kidneys are unremarkable with no evidence for mass lesion, hydronephrosis or inflammation. There is no urinary tract calculus. The ureters demonstrate normal caliber. The urinary bladder is unremarkable. GI Tract: Stomach is unremarkable. Visualized small bowel is unremarkable without evidence for obstruction or active inflammation. The appendix is unremarkable.The visualized portion of the large bowel is unremarkable. Reproductive: The uterus is midline. There are a few bilateral small follicular cysts in the ovaries. There is no suspicious adnexal mass. Lymph nodes: No retroperitoneal or abdominal lymphadenopathy. Vascular: The aorta is not dilated. The branch vessels of the aorta are widely patent. Peritoneum: No free intraperitoneal air or fluid. No acute inflammation. Abdominal wall: Unremarkable without acute abnormality. Musculoskeletal: There is no focal bony lesion or other acute osseous abnormality. IMPRESSION: 1. Status post cholecystectomy with slight compensatory dilatation of the intrahepatic bile ducts. 2. There is no acute intra-abdominal inflammatory process, bowel obstruction, or mass lesion. 3. There is no obstructive uropathy. Normal [facility] CT Abdomen and Pelvis W [facility] rast Nery 02-16-2024 IMPRESSION: 1. Status post cholecystectomy with slight compensatory dilatation of the intrahepatic bile ducts. 2. There is no acute intra-abdominal inflammatory process, bowel obstruction, or mass lesion. 3. There is no obstructive uropathy. RADIOLOGY EXAM: CT ABDOMEN/PELVIS WITH CONTRAST TECHNIQUE: Axial CT images were obtained of the abdomen and pelvis with intravenous contrast. Sagittal and coronal reformatted images were also obtained. Dose reduction techniques were achieved by using automated exposure control and/or adjustment of mA and/or kV according to patient size and/or use of iterative reconstruction technique. HISTORY: Right lower quadrant abdominal pain COMPARISON: CT abdomen and pelvis: 09/20/2023 __ FINDINGS: Lower chest: The lower lungs are clear. Liver: The liver is homogeneous with normal contours and normal size. Gallbladder: Status post cholecystectomy. Mild central biliary dilatation is likely within normal limits, following cholecystectomy. Pancreas: The pancreas is homogeneous without evidence for mass lesion or inflammation. Spleen: The spleen is unremarkable without evidence for mass lesion. Adrenal glands: The adrenal glands are unremarkable Kidneys and bladder: The kidneys are unremarkable with no evidence for mass lesion, hydronephrosis or inflammation. There is no urinary tract calculus. The ureters demonstrate normal caliber. The urinary bladder is unremarkable. GI Tract: Stomach is unremarkable. Visualized small bowel is unremarkable without evidence for obstruction or active inflammation. The appendix is unremarkable.The visualized portion of the large bowel is unremarkable. Reproductive: The uterus is midline. There are a few bilateral small follicular cysts in the ovaries. There is no suspicious adnexal mass. Lymph nodes: No retroperitoneal or abdominal lymphadenopathy. Vascular: The aorta is not dilated. The branch vessels of the aorta are widely patent. Peritoneum: No free intraperitoneal air or fluid. No acute inflammation. Abdominal wall: Unremarkable without acute abnormality. Musculoskeletal: There is no focal bony lesion or other acute osseous abnormality. RADIOLOGY Jadon Ashraf MD - 02/16/2024 EXAM: CT ABDOMEN/PELVIS WITH CONTRAST TECHNIQUE: Axial CT images were obtained of the abdomen and pelvis with intravenous contrast. Sagittal and coronal reformatted images were also obtained. Dose reduction techniques were achieved by using automated exposure control and/or adjustment of mA and/or kV according to patient size and/or use of iterative reconstruction technique. HISTORY: Right lower quadrant abdominal pain COMPARISON: CT abdomen and pelvis: 09/20/2023 __ FINDINGS: Lower chest: The lower lungs are clear. Liver: The liver is homogeneous with normal contours and normal size. Gallbladder: Status post cholecystectomy. Mild central biliary dilatation is likely within normal limits, following cholecystectomy. Pancreas: The pancreas is homogeneous without evidence for mass lesion or inflammation. Spleen: The spleen is unremarkable without evidence for mass lesion. Adrenal glands: The adrenal glands are unremarkable Kidneys and bladder: The kidneys are unremarkable with no evidence for mass lesion, hydronephrosis or inflammation. There is no urinary tract calculus. The ureters demonstrate normal caliber. The urinary bladder is unremarkable. GI Tract: Stomach is unremarkable. Visualized small bowel is unremarkable without evidence for obstruction or active inflammation. The appendix is unremarkable.The visualized portion of the large bowel is unremarkable. Reproductive: The uterus is midline. There are a few bilateral small follicular cysts in the ovaries. There is no suspicious adnexal mass. Lymph nodes: No retroperitoneal or abdominal lymphadenopathy. Vascular: The aorta is not dilated. The branch vessels of the aorta are widely patent. Peritoneum: No free intraperitoneal air or fluid. No acute inflammation. Abdominal wall: Unremarkable without acute abnormality. Musculoskeletal: There is no focal bony lesion or other acute osseous abnormality. IMPRESSION IMPRESSION: 1. Status post cholecystectomy with slight compensatory dilatation of the intrahepatic bile ducts. 2. There is no acute intra-abdominal inflammatory process, bowel obstruction, or mass lesion. 3. There is no obstructive uropathy. [facility] Radiology Study observation (narrative) [facility] CT Abdomen and Pelvis W cont rast IVOrdered By: Jadon Ashraf on 02-16-2024 [facility] Work Phone: HCG ( test) Ql (U)o n 02-16-2024 [facility] HCG QUALITATIVE, URINEon HCG ( test) Ql (U) Negative [facility] HEPATIC FUNCTION PANELon Albumin [Mass/Vol] 4.5 g/dL [facility] ALP [Catalytic activity/Vol] 71 U/L [facility] ALT [Catalytic activity/Vol] 24 U/L NINF [facility] AST [Catalytic activity/Vol] 27 U/L [facility] Bilirubin [Mass/Vol] 0.5 mg/dL [facility] Bilirubin.direct [Mass/Vol] 0.5 mg/dL High [facility] Protein [Mass/Vol] 8.2 g/dL [facility] LIPASEon 02-16-2024 Lipase [Catalytic activity/Vol] 127 U/L 23 - 300 U/L [facility] LIPASE,SERUMon 02-16-2024 LIPASE,SERUM 127 U/L Normal 23-300 [facility] LIVER PANELon 09-05-2024 Albumin [Mass/Vol] 4.5 g/dL Normal 3.5-5.0 [facility] ALP [Catalytic activity/Vol] 71 U/L Normal 38-126 [facility] ALT [Catalytic activity/Vol] 24 U/L Normal <35 [facility] AST [Catalytic activity/Vol] 27 U/L Normal 14-36 [facility] Bilirubin [Mass/Vol] 0.5 mg/dL Normal 0.2-1.3 [facility] Bilirubin.indirect [Mass/Vol] 0.5 mg/dL High 0-0.4 [facility] Protein [Mass/Vol] 8.2 g/dL Normal 6.3-8.2 [facility] No Panel Informationon 02-15 Interpretation and review of laboratory results Abnormal [facility] PROTIMEon 02-16-2024 INR Coag (PPP) [Relative time] 0.89 {INR} Normal 0.88-1.14 [facility] Comment on above: Result Comment: 2.0-3.0 THERAPEUTIC RANGE 2.5-3.5 MECHANICAL VALVE RANGE PT Coag (PPP) [Time] 12.2 s Normal 11.8-14.4 [facility] PROTIME-INRon 02-16-2024 INR Coag (PPP) [Relative time] 0.89 {INR} 0.88 - 1.14 [facility] Comment on above: 2.0-3.0 THERAPEUTIC RANGE 2.5-3.5 MECHANICAL VALVE RANGE PT Coag (PPP) [Time] 12.[address] [facility] Portable XR Chest Viewson IMPRESSION: 1. No acute pulmonary disease. 2. No free air collections underneath the diaphragms. RADIOLOGY XR CHEST 1 VIEW PORTABLE CLINICAL STATEMENT: Abdominal pain. COMPARISON: Chest x-ray August 31, 2020. TECHNIQUE: Single portable upright view. FINDINGS: Cardiac silhouette and mediastinal contours are stable and within normal limits. Lungs appear clear with no focal airspace consolidation, pneumothorax or sizable pleural effusion. No free air collections underneath the diaphragms. No obvious acute osseous abnormality. RADIOLOGY Davi Cheng, DO - 02/16/2024 XR CHEST 1 VIEW PORTABLE CLINICAL STATEMENT: Abdominal pain. COMPARISON: Chest x-ray August 31, 2020. TECHNIQUE: Single portable upright view. FINDINGS: Cardiac silhouette and mediastinal contours are stable and within normal limits. Lungs appear clear with no focal airspace consolidation, pneumothorax or sizable pleural effusion. No free air collections underneath the diaphragms. No obvious acute osseous abnormality. IMPRESSION IMPRESSION: 1. No acute pulmonary disease. 2. No free air collections underneath the diaphragms. [facility] Radiology Study observation (narrative) [facility] Portable XR Chest ViewsOrder ed By: Davi Cheng on 02-16-2024 [facility] Work Phone: URINE HCG QUALon 02-16-2024 Beta HCG ( test) Ql (U) Negative Normal [facility] XR CHEST 1 VIEW PORTABLEon 0 02-16-2024 XR CHEST 1 VIEW PORTABLE XR CHEST 1 VIEW PORTABLE CLINICAL STATEMENT: Abdominal pain. COMPARISON: Chest x-ray August 31, 2020. TECHNIQUE: Single portable upright view. FINDINGS: Cardiac silhouette and mediastinal contours are stable and within normal limits. Lungs appear clear with no focal airspace consolidation, pneumothorax or sizable pleural effusion. No free air collections underneath the diaphragms. No obvious acute osseous abnormality. IMPRESSION: 1. No acute pulmonary disease. 2. No free air collections underneath the diaphragms. Normal [facility] ED Clinical Summaryon 2023 ED Clinical Summary ED Clinical Summary [place] [address] ED Clinical Summary Person Information Name: LIVIA NOYOLA/[facility] Age: 39 Years : 1985 Sex: Female Language: Honduran PCP: NONE, XXXX Marital Status: Visit Id: [...] 02/13/2024 01:00:19 ADDRESS: [address] [place] [id number] PHYS DOC NOTES: MEDICAL INFORMATION: Prescriptions Given: New Medications [id number], [address] [id number], [phone] amoxicillin-clavulan ate (Augmentin 875 mg-125 mg Tab) [...] Pain Follow up: With: Address: When: Dental: [facility] [phone] In 3 days 02/16/2024 With: Address: When: Dental: [place] [employer] [phone] In 3 days 02/16/2024 With: Address: When: Dental: [facility] [phone] In 3 days 02/16/2024 DIAGNOSIS: Pain, dental Normal [facility] ED Note-Physicianon 02-13-20 ED Note-Physician ED [...] and was given a short prescription for Cypress which she is also taking but states [...] and Complexity of Problems Differential Diagnosis: [] [facility] Data External documents reviewed: N/A My EKG [...] already taking oral Toradol as well as Cypress. We discussed using lidocaine and bupivacaine soaked [...] for 7 day(s), 14 tab(s), Refill(s) 0, [id number], 165.1, cm, 02/13/24 0:28:00 EDT, Height/Length [...] q12hr Follow-up With When Contact Information Dental: [facility] [phone] In 3 days 02/16/2024 EDT Additional Instructions: Dental: [place] [phone] In 3 days 02/16/2024 EDT Additional Instructions: Dental: [facility] [phone] In 3 days 02/16/2024 EDT Additional Instructions: [...] Diagnostic Results No qualifying data available. Normal [facility] Comment on above: Result Comment: Elec tronically Signed By: Ritesh Heath DO\.br\Date and Time Signed: 02/13/24 00:51 EDT ED Patient Summaryon 024 ED Patient Summary ED Patient Summary [place] [id number] Patient Discharge Instructions Person Information Name: LIVIA NOYOLA Age: 39 Years Arrival Date: 02/13/2024 00:20:34 Discharge Diagnosis: Pain, dental Primary Care Physician: NONE, XXXX Provider Information Primary Provider: Ritesh Heath DO [employer]:None The exam and treatment you received in the Emergency Department were for an urgent problem and are not intended as complete care. It is important that you follow up with a doctor, nurse practitioner, or physician?s electrician's assistant for ongoing care. If your symptoms become worse or you do not improve as expected and you are unable to reach your usual health care provider, you should return to the Emergency Department. We are available 24 hours a day. LIVIA NOYOLA has been given the following list of patient education materials, prescriptions and follow-up instructions: Follow-up Instructions: With: Address: When: Dental: [facility] [phone] In 3 days 02/16/2024 With: Address: When: Dental: [place] [facility] [phone] In 3 days 02/16/2024 With: Address: When: Dental: [facility] [phone] In 3 days 02/16/2024 In the event that this physician does not participate in your insurance network, please consult with your insurance company to find a nearby participating provider. Patient Education Materials: Dental Pain A MESSAGE TO ALL PATIENTS REGARDING OPIOIDS PRESCRIPTION OPIOIDS: WHAT YOU NEED TO KNOW Prescription opioids can be used to help relieve [id number]-ix-[id number] pain and are often prescribed following a [...] care professi (more content not included)... Normal [facility] C REACTIVE PROTEINon 024 CRP [Mass/Vol] mg/L Normal 0.000-0.744 [facility] Comment on above: Performed By: #### C BCA, CMP #### [facility] ([id number]) [address] [place] [address], [place] [address] CBC AND AUTO DIFFon 01-27-20 24 ABSOLUTE BASOPHIL 0.1 X10E9/L Normal 0.0-0.2 [facility] Comment on above: Performed By: #### C BCA, CMP, 0-3, , 1985-10, #### [facility] ([id number]) [address] [place] [address] ABSOLUTE NEUTROPHIL 4.6 X10E9/L Normal 1.5-6.6 [facility] Comment on above: Performed By: #### C BCA, CMP, 0-3, , 1985-10, #### [facility] ([id number]) [address] [place] [address] Basophils/100 WBC (Bld) 1.0 % Normal [facility] Comment on above: Performed By: #### C BCA, CMP, 3, , 1985-10, #### [facility] ([id number]) [address] [place] [address] Eosinophils (Bld) [#/Vol] 0.1 10*3/uL Normal 0.0-0.4 [facility] Comment on above: Performed By: #### C BCA, CMP, 0-3, , 1987-10, #### [facility] ([id number]) [address] [place] [address] Eosinophils/100 WBC (Bld) 1.8 % Normal [facility] Comment on above: Performed By: #### C BCA, CMP, 0-3, , 1987-10, #### [facility] ([id number]) [address] [place] [address] 98405 Erythrocyte distribution width (RBC) [Ratio] 17.1 % High 11.5-15.0 [facility] Comment on above: Performed By: #### C BCA, CMP, 0-3, 59906-6, 1987-10, #### [facility] ([id number]) [address] [place] [address] 08354 Hematocrit (Bld) [Volume fraction] 34.8 % Low 35-47 [facility] Comment on above: Performed By: #### C BCA, CMP, 3040-3, 39526-4, 1987-10, #### [facility] ([id number]) [address] [place] [address] 50973 Hemoglobin (Bld) [Mass/Vol] 10.9 g/dL Low 11.7-15.5 [facility] Comment on above: Performed By: #### C BCA, CMP, 0-3, , 1987-10, #### [facility] ([id number]) [address] [place] [address] 20687 Lymphocytes (Bld) [#/Vol] 1.9 10*3/uL Normal 1.0-3.5 [facility] Comment on above: Performed By: #### C HEATH, CMP, 0-3, , 1987-10, #### [facility] ([id number]) [address] [place] [address] 87637 Lymphocytes/100 WBC (Bld) 26.4 % Normal [facility] Comment on above: Performed By: #### C BCA, CMP, 3040-3, 61739-1, 1987-10, #### [facility] ([id number]) [address] [place] [address] 91874 MCH (RBC) [Entitic mass] 22.7 pg Low 27-34 [facility] Comment on above: Performed By: #### C BCA, CMP, 3040-3, 54327-0, 1987-10, #### [facility] ([id number]) [address] [place] [address] 72988 MCHC (RBC) [Mass/Vol] 31.3 g/dL Low 32-36 [facility] Comment on above: Performed By: #### C HEATH, CMP, 3040-3, 65167-3, 1987-10, #### [facility] ([id number]) [address] [place] [address] 82888 MCV (RBC) [Entitic vol] 72 fL Low 80-100 P [facility] Comment on above: Performed By: #### C HEATH, CMP, 0-3, , 1987-10, #### [facility] ([id number]) [address] [place] [address] 38330 Monocytes (Bld) [#/Vol] 0.4 10*3/uL Normal 0-0.9 [facility] Comment on above: Performed By: #### C BCA, CMP, 3040-3, 25849-1, 1987-10, #### [facility] ([id number]) [address] [place] [address] 56154 Monocytes/100 WBC (Bld) 5.8 % Normal [facility] Comment on above: Performed By: #### Leila JOE, CMP, 3040-3, , 1985-10, #### [facility] ([id number]) [address] [place] [address] 64472 Neutrophils/100 WBC (Bld) 65.0 % Normal [facility] Comment on above: Performed By: #### C BCA, CMP, 3040-3, 21118-9, 1987-10, #### [facility] ([id number]) [address] [place] [address] 73663 Platelet mean volume (Bld) [Entitic vol] 7.6 fL Normal 7-12 [facility] Comment on above: Performed By: #### C HEATH, [facility], 3040-3, 66352-7, 1987-10, #### [facility] ([id number]) [address] [place] [address] 08248 Platelets (Bld) [#/Vol] 532 10*3/uL High 150-450 [facility] Comment on above: Performed By: #### Leila JOE, [facility], 3040-3, 61936-3, 1987-10, #### [facility] ([id number]) [address] [place] [address] 10034 RBC COUNT 4.80 X10E12/L Normal 3.80-5.20 [facility] Comment on above: Performed By: #### Leila JOE [facility], 0-3, 22027-6, 1987-10, #### [facility] ([id number]) [address] [place] [address] 28302 WBC (Bld) [#/Vol] 7.0 10*3/uL Normal 4.0-11.0 [facility] Comment on above: Performed By: #### Leila JOE [facility], 3040-3, 28385-2, 1987-10, #### [facility] ([id number]) [address] [place] [address] 52597 CHLAMYDIA/GC BY PCRon 2023 CHLAMYDIA/GC BY PCR [...] are dependent on adequate specimen collection. Normal [facility] Comment on above: Performed By: #### Leila JOE, [facility] #### [facility] ([id number]) [address] [place] [address] 95103 COMPREHENSIVE METABOLIC PANE Van 01-27-2024 Albumin [Mass/Vol] 4.3 g/dL Normal 3.2-5.3 [facility] Comment on above: Performed By: #### C BCA, CMP, 3040-3, 81745-0, 1987-10, #### [facility] ([id number]) [address] [place] [address] 19299 ALP [Catalytic activity/Vol] 76 U/L Normal 39-130 [facility] Comment on above: Performed By: #### C BCA, CMP, 3040-3, 78158-8, 1987-10, #### [facility] ([id number]) [address] [place] [address] 17853 ALT [Catalytic activity/Vol] 28 U/L Normal 0-31 [facility] Comment on above: Performed By: #### C BCA, CMP, 3040-3, 28635-4, 1987-10, #### [facility] ([id number]) [address] [place] [address] 60273 Anion gap [Moles/Vol] 7 mmol/L Normal 5-15 [facility] Comment on above: Performed By: #### C BCA, CMP, 3040-3, 40325-0, 1987-10, #### [facility] ([id number]) [address] [place] [address] 57542 AST [Catalytic activity/Vol] 20 U/L Normal 0-41 [facility] Comment on above: Performed By: #### C BCA, CMP, 3040-3, 61455-9, 1987-10, #### [facility] ([id number]) [address] [place] [address] 54510 Bilirubin [Mass/Vol] 1.0 mg/dL Normal 0.3-1.2 [facility] Comment on above: Performed By: #### C BCA, CMP, 3040-3, 60763-8, 1987-10, #### [facility] ([id number]) [address] [place] [address] 51821 Calcium [Mass/Vol] 9.0 mg/dL Normal 8.5-10.5 [facility] Comment on above: Performed By: #### C BCA, CMP, 3040-3, 76878-4, 1987-10, #### [facility] ([id number]) [address] [place] [address] 21079 Chloride [Moles/Vol] 102 mmol/L Normal 98-109 [facility] Comment on above: Performed By: #### C HEATH, CMP, 3039-3, , 1987-10, #### [facility] ([id number]) [address] [place] [address] 81767 CO2 [Moles/Vol] 22 mmol/L Normal 22-32 [facility] Comment on above: Performed By: #### C HEATH, CMP, 0-3, , 1987-10, #### [facility] ([id number]) [address] [place] [address] 04050 Creatinine [Mass/Vol] 0.76 mg/dL Normal 0.40-1.00 [facility] Comment on above: Result Comment: METH OD TRACEABLE TO IDMS STANDARD Performed By: #### C BCA, CMP, 3040-3, 20161-7, 1987-10, #### [facility] ([id number]) [address] [place] [address] 44647 eGFR (CKD-EPI) NON-RACE DEPENDENT >90 Normal >59 [facility] Comment on above: Result Comment: Reported eGFR is based on the CKD-EPI 2020 equation that does not use a race coefficient. Performed By: #### C BCA, CMP, 3040-3, 31038-1, 1987-10, #### [facility] ([id number]) [address] [place] [address] 70626 Glucose [Mass/Vol] 109 mg/dL High 65-99 [facility] Comment on above: Performed By: #### C BCA, CMP, 3040-3, 44831-5, 1987-10, #### [facility] ([id number]) [address] [place] [address] 93154 Potassium [Moles/Vol] 4.1 mmol/L Normal 3.5-5.0 [facility] Comment on above: Performed By: #### C BCA, CMP, 3040-3, 36475-7, 1987-10, #### [facility] ([id number]) [address] [place] [address] 98685 Protein [Mass/Vol] 8.2 g/dL High 6.0-8.0 [facility] Comment on above: Performed By: #### C BCA, CMP, 3040-3, 99819-1, 1987-10, #### [facility] ([id number]) [address] [place] [address] 35247 Sodium [Moles/Vol] 131 mmol/L Low 134-146 [facility] Comment on above: Performed By: #### C BCA, CMP, 3040-3, 94129-2, 1987-10, #### [facility] ([id number]) [address] [place] [address] 68634 Urea nitrogen [Mass/Vol] 6 mg/dL Normal 5-23 [facility] Comment on above: Performed By: #### C BCA, CMP, 3040-3, 12460-5, 1987-10, #### [facility] ([id number]) [address] [place] [address] 73247 HCG ( test) Ql (U)o n 01-27-2024 Beta HCG ( test) Ql (U) Negative Normal NEG [facility] Comment on above: Performed By: #### 2 106-3 #### [facility] ([id number]) [address] [place] [address] 28744 LIPASEon 01-27-2024 Lipase [Catalytic activity/Vol] 33 U/L Normal 17-40 [facility] Comment on above: Performed By: #### C BCA, CMP #### [facility] ([id number]) [address] [place] [address] 95176 Lactate (P arely) [Moles/Vol]o n 01-27-2024 LACTATE W/REFLEX 1.5 mmol/L Normal 0.4-2.0 [facility] Comment on above: Result Comment: Result did not trigger repeat Lactate, re-order if needed. Performed By: #### C BCA, CMP #### [facility] ([id number]) [address] [place] [address] 06905 MAGNESIUMon 01-27-2024 Magnesium [Mass/Vol] 2.0 mg/dL Normal 1.8-2.6 [facility] Comment on above: Performed By: #### C BCA, CMP #### [facility] ([id number]) [address] [place] [address] 20765 URINE CULTUREon 01-27-2024 Bacteria identified Cx Nom (U) CULTURE RESULTS <10,000 ORGANISMS/ML NORMAL URO GENITAL RASHID Normal [facility] Comment on above: Performed By: #### C BCA, CMP #### [facility] ([id number]) [address] [place] [address] 57771 URN MACROSCOPIC NURon 2023 BILIRUBIN AUDREY Negative Normal NEG [facility] Comment on above: Performed By: #### N UM #### [facility] ([id number]) [address] [place] [address] [place] [address] BLOOD/HGB AUDREY Negative Normal NEG [facility] Comment on above: Performed By: #### N UM #### [facility] ([id number]) [address] [place] [address] [place] [address] GLUCOSE AUDREY Negative Normal NEG [facility] Comment on above: Performed By: #### N UM #### [facility] ([id number]) [address] [place] [address] [place] [address] KETONES AUDREY Negative Normal NEG [facility] Comment on above: Performed By: #### N UM #### [facility] ([id number]) [address] [place] [address] 91158 LEUKOCYTE ESTERASE AUDREY Negative Normal NEG Pr [facility] Comment on above: Performed By: #### N UM #### [facility] ([id number]) [address] [place] [address] [place] [address] NITRITE AUDREY Negative Normal NEG [facility] Comment on above: Performed By: #### N UM #### [facility] ([id number]) [address] [place] [address] [place] [address] PH AUDREY 8.5 Normal 5.0-8.5 [facility] Comment on above: Performed By: #### N UM #### [facility] ([id number]) [address] [place] [address] [place] [address] PROTEIN AUDREY Negative Normal NEG [facility] Comment on above: Performed By: #### N UM #### [facility] ([id number]) [address] [place] [address] [place] [address] SPECIFIC GRAVITY AUDREY 1.015 Normal 1.003-1.035 [facility] Comment on above: Performed By: #### N UM #### [facility] ([id number]) [address] [place] [address] [place] [address] UROBILINOGEN AUDREY 0.2 eu/dL Normal <1.1 [facility] Comment on above: Performed By: #### N #### [facility] ([id number]) [address] [place] [address] [place] PELVIC WITH TRANSVAGINAL AND DUPLEXon 01-27-2024 [...] Nixon MD on 01/27/2024 2:39 PM Normal [facility] VAGINITIS PANEL PCRon 2023 VAGINITIS PANEL [...] clinical presentation to determine patient diagnosis. Normal [facility] Comment on above: Performed By: #### C HEATH, CMP #### [facility] ([id number]) [address] [place] [address], [place] [address] CT sinus wo conon 11-25-2023 CT sinus wo con [facility] [place] [address] CT Scan Report Signed Patient: Livia Noyola MR#: [id number] 757 : 1985 Acct:[id number] Age/Sex: 38 / F ADM Date: 11/25/23 Loc: CT Room: Type: [facility] Attending Dr: Jennifer Duran DO Copies to: [...] Davi Figueroa M.D.11/25/2023 4:01 PM Dictation Location: [place] [address] Transcribed By: [facility] 11/25/23 1601 Dictated By: Davi Figueroa DO 11/25/23 1559 Signed By: 11/25/23 1601 Normal [facility] CBC AND AUTO DIFFon 10-25-19 ABSOLUTE BASOPHIL 0.1 X10E9/L Normal 0.0-0.2 [facility] Comment on above: Performed By: #### C HEATH, CMP #### [facility] ([id number]) [address] [place] [address] 56880 ABSOLUTE NEUTROPHIL 4.1 X10E9/L Normal 1.5-6.6 [facility] Comment on above: Performed By: #### C HEATH, CMP #### [facility] ([id number]) [address] [place] [address] 70957 Basophils/100 WBC (Bld) 0.9 % Normal [facility] Comment on above: Performed By: #### C BCA, CMP #### [facility] ([id number]) [address] [place] [address] 85303 Eosinophils (Bld) [#/Vol] 0.0 10*3/uL Normal 0.0-0.4 [facility] Comment on above: Performed By: #### C BCA, CMP #### [facility] ([id number]) [address] [place] [address] 96853 Eosinophils/100 WBC (Bld) 0.1 % Normal [facility] Comment on above: Performed By: #### C BCA, CMP #### [facility] ([id number]) [address] [place] [address] 12504 Erythrocyte distribution width (RBC) [Ratio] 17.9 % High 11.5-15.0 [facility] Comment on above: Performed By: #### C BCA, CMP #### [facility] ([id number]) [address] [place] [address] 63386 Hematocrit (Bld) [Volume fraction] 34.6 % Low 35-47 [facility] Comment on above: Performed By: #### C BCA, CMP #### [facility] ([id number]) [address] [place] [address] 78000 Hemoglobin (Bld) [Mass/Vol] 11.1 g/dL Low 11.7-15.5 [facility] Comment on above: Performed By: #### C BCA, CMP #### [facility] ([id number]) [address] [place] [address] 85629 Lymphocytes (Bld) [#/Vol] 1.5 10*3/uL Normal 1.0-3.5 [facility] Comment on above: Performed By: #### C BCA, CMP #### [facility] ([id number]) [address] [place] [address] 37465 Lymphocytes/100 WBC (Bld) 25.6 % Normal [facility] Comment on above: Performed By: #### C BCA, CMP #### [facility] ([id number]) [address] [place] [address] 75518 MCH (RBC) [Entitic mass] 23.1 pg Low 27-34 [facility] Comment on above: Performed By: #### C BCA, CMP #### [facility] ([id number]) [address] [place] [address] 11222 MCHC (RBC) [Mass/Vol] 32.1 g/dL Normal 32-36 [facility] Comment on above: Performed By: #### C BCA, CMP #### [facility] ([id number]) [address] [place] [address] 81282 MCV (RBC) [Entitic vol] 72 fL Low 80-100 P [facility] Comment on above: Performed By: #### C HEATH, CMP #### [facility] ([id number]) [address] [place] [address] 34221 Monocytes (Bld) [#/Vol] 0.3 10*3/uL Normal 0-0.9 [facility] Comment on above: Performed By: #### C HEATH, CMP #### [facility] ([id number]) [address] [place] [address] 81007 Monocytes/100 WBC (Bld) 5.3 % Normal [facility] Comment on above: Performed By: #### C HEATH, CMP #### [facility] ([id number]) [address] [place] [address] 62263 Neutrophils/100 WBC (Bld) 68.1 % Normal [facility] Comment on above: Performed By: #### C HEATH, CMP #### [facility] ([id number]) [address] [place] [address] 46577 Platelet mean volume (Bld) [Entitic vol] 7.7 fL Normal 7-12 [facility] Comment on above: Performed By: #### C BCA, CMP #### [facility] ([id number]) [address] [place] [address] 79990 Platelets (Bld) [#/Vol] 532 10*3/uL High 150-450 [facility] Comment on above: Performed By: #### C BCA, CMP #### [facility] ([id number]) [address] [place] [address] 35328 RBC COUNT 4.82 X10E12/L Normal 3.80-5.20 [facility] Comment on above: Performed By: #### C BCA, CMP #### [facility] ([id number]) [address] [place] [address] 26015 WBC (Bld) [#/Vol] 6.0 10*3/uL Normal 4.0-11.0 [facility] Comment on above: Performed By: #### C BCA, CMP #### [facility] ([id number]) [address] [place] [address] 16104 COMPREHENSIVE METABOLIC PANE Van 10-25-2023 Albumin [Mass/Vol] 4.7 g/dL Normal 3.2-5.3 [facility] Comment on above: Performed By: #### C BCA, CMP #### [facility] ([id number]) [address] [place] [address] 62628 ALP [Catalytic activity/Vol] 67 U/L Normal 39-130 [facility] Comment on above: Performed By: #### C BCA, CMP #### [facility] ([id number]) [address] [place] [address] 73333 ALT [Catalytic activity/Vol] 23 U/L Normal 0-31 [facility] Comment on above: Performed By: #### C BCA, CMP #### [facility] ([id number]) [address] [place] [address] 49960 Anion gap [Moles/Vol] 11 mmol/L Normal 5-15 [facility] Comment on above: Performed By: #### C BCA, CMP #### [facility] ([id number]) [address] [place] [address] 27022 AST [Catalytic activity/Vol] 20 U/L Normal 0-41 [facility] Comment on above: Performed By: #### C BCA, CMP #### [facility] ([id number]) [address] [place] [address] 09051 Bilirubin [Mass/Vol] 1.0 mg/dL Normal 0.3-1.2 [facility] Comment on above: Performed By: #### C BCA, CMP #### [facility] ([id number]) [address] [place] [address] 41494 Calcium [Mass/Vol] 9.6 mg/dL Normal 8.5-10.5 [facility] Comment on above: Performed By: #### C BCA, CMP #### [facility] ([id number]) [address] [place] [address] 34859 Chloride [Moles/Vol] 106 mmol/L Normal 98-109 [facility] Comment on above: Performed By: #### C BCA, CMP #### [facility] ([id number]) [address] [place] [address] 33990 CO2 [Moles/Vol] 20 mmol/L Low 22-32 [facility] Comment on above: Performed By: #### C BCA, CMP #### [facility] ([id number]) [address] [place] [address] 91488 Creatinine [Mass/Vol] 0.59 mg/dL Normal 0.40-1.00 [facility] Comment on above: Result Comment: METH OD TRACEABLE TO IDMS STANDARD Performed By: #### C HEATH, CMP #### [facility] ([id number]) [address] [place] [address] 65981 eGFR (CKD-EPI) NON-RACE DEPENDENT >90 Normal >59 [facility] Comment on above: Result Comment: Reported eGFR is based on the CKD-EPI 2021 equation that does not use a race coefficient. Performed By: #### C BCA, CMP #### [facility] ([id number]) [address] [place] [address] 58750 Glucose [Mass/Vol] 124 mg/dL High 65-99 [facility] Comment on above: Performed By: #### C BCA, CMP #### [facility] ([id number]) [address] [place] [address] Potassium [Moles/Vol] 3.5 mmol/L Normal 3.5-5.0 [facility] Comment on above: Performed By: #### C BCA, CMP #### [facility] ([id number]) [address] [place] [address] 94606 Protein [Mass/Vol] 8.7 g/dL High 6.0-8.0 [facility] Comment on above: Performed By: #### C BCA, CMP #### [facility] ([id number]) [address] [place] [address] 84412 Sodium [Moles/Vol] 137 mmol/L Normal 134-146 [facility] Comment on above: Performed By: #### C BCA, CMP #### [facility] ([id number]) [address] [place] [address] 80972 Urea nitrogen [Mass/Vol] 6 mg/dL Normal 5-23 [facility] Comment on above: Performed By: #### C BCA, CMP #### [facility] ([id number]) [address] [place] [address] ABDOMEN AND PELVIS W CONT on [...] Fisher MD on 10/25/2023 7:39 PM Normal [facility] HCG ( test) Ql (U)o n 10-25-2023 Beta HCG ( test) Ql (U) Negative Normal NEG [facility] Comment on above: Performed By: #### 2 106-3 #### [facility] ([id number]) [address] [place] [address] 68782 URN MACROSCOPIC NURon 2023 BILIRUBIN AUDREY Negative Normal NEG [facility] Comment on above: Performed By: #### N UM #### [facility] ([id number]) [address] [place] [address] 07865 BLOOD/HGB AUDREY Negative Normal NEG [facility] Comment on above: Performed By: #### N UM #### [facility] ([id number]) [address] [place] [address] 63785 GLUCOSE AUDREY Negative Normal NEG [facility] Comment on above: Performed By: #### N UM #### [facility] ([id number]) [address] [place] [address] 34311 KETONES AUDREY 15 mg/dL Abnormal NEG [facility] Comment on above: Performed By: #### N UM #### [facility] ([id number]) [address] [place] [address] 12098 LEUKOCYTE ESTERASE AUDREY Trace Abnormal NEG [facility] Comment on above: Performed By: #### N UM #### [facility] ([id number]) [address] [place] [address] 54366 NITRITE AUDREY Negative Normal NEG [facility] Comment on above: Performed By: #### N UM #### [facility] ([id number]) [address] [place] [address] 54297 PH AUDREY 7.0 Normal 5.0-8.5 [facility] Comment on above: Performed By: #### N UM #### [facility] ([id number]) [address] [place] [address] 53441 PROTEIN AUDREY Negative Normal NEG [facility] Comment on above: Performed By: #### N UM #### [facility] ([id number]) [address] [place] [address] 65884 SPECIFIC GRAVITY AUDREY 1.020 Normal 1.003-1.035 [facility] Comment on above: Performed By: #### N UM #### [facility] ([id number]) [address] [place] [address] 28226 UROBILINOGEN AUDREY 1.0 eu/dL Normal <1.1 [facility] Comment on above: Performed By: #### N UM #### [facility] ([id number]) [address] [place] [address] 82737 [place] PELVIC WITH TRANSVAGINAL AND DUPLEXon 10-25-2023 [...] Singh MD on 10/25/2023 6:17 PM Normal [facility] C Urineon 10-02-2023 Bacteria identified Cx Nom (U) Microbiology PROCEDURE: Urine Culture [R1] SOURCE: U CleanCatch BODY SITE: COLLECTED DATE/TIME: 09/30/2023 00:08 EDT RECEIVED DATE/TIME: 09/30/2023 00:24 EDT START DATE/TIME: 09/30/2023 00:24 EDT FREE TEXT SOURCE: Ritesh Heath DO. Ivana WATKINS, Ritesh Lewis. FINAL REPORTS Final Report [] Verified Date/Time: 10/02/2023 07:19 EDT 4,000 cfu/ml Mixed skin contaminants Performing Locations R1: This test was performed at: [facility], [address] [place] [address], [address] , , Normal [facility] Comment on above: Performed By: #### 2 852031, 5163907, 0796879, 32906555, [id number] #### [facility] [address] [place] [address] 87760 BMPon 09-30-2023 Anion gap [Moles/Vol] 13 mmol/L Normal 6-16 [facility] Comment on above: Performed By: #### 2 715173, 8463051, 9417125, 33267820, 4139940 ####[facility] [address] [place] [address] Calcium [Mass/Vol] 9.1 mg/dL Normal 8.9-11.1 [facility] Comment on above: Performed By: #### 2 311352, 5650243, 7035513, 46065086, 0655170 ####[facility] [address] [place] [address] Chloride [Moles/Vol] 105 mmol/L Normal 101-111 [facility] Comment on above: Performed By: #### 2 307828, 2470271, 8633946, 15009515, 4505562 ####[facility] [address] [address] CO2 [Moles/Vol] 23 mmol/L Normal 21-31 [facility] Comment on above: Performed By: #### 2 761221, 9371226, 1473058, 20567283, 3564043 ####[facility] [address] [place] [address] Creatinine [Mass/Vol] 0.8 mg/dL Normal 0.5-1.3 [facility] Comment on above: Performed By: #### 2 338848, 9324874, 6791086, 00457083, 3598147 ####[facility] [address] [place] [address] Glucose [Mass/Vol] 95 mg/dL Normal 55-199 [facility] Comment on above: Performed By: #### 2 141631, 8694809, 9329425, 71951766, 8733490 ####[facility] [address] [place] [address] Potassium [Moles/Vol] 3.1 mmol/L Low 3.5-5.3 [facility] Comment on above: Performed By: #### 2 668633, 8848805, 9003713, 38442669, 5555195 ####[facility] [address] [place] [address] Sodium [Moles/Vol] 138 mmol/L Normal 135-145 [facility] Comment on above: Performed By: #### 2 620692, 8613579, 3971634, 47363431, 9702675 ####[facility] [address] [place] [address] Urea nitrogen [Mass/Vol] 7 mg/dL Normal 5-21 [facility] Comment on above: Performed By: #### 2 539710, 3092026, 6307994, 29502777, 0740694 ####[facility] [address] [place] [address] 63319 Urea nitrogen/Creatinine [Mass ratio] 9 No Units Low 10-20 [facility] Comment on above: Performed By: #### 2 670742, 7135655, 1624285, 51091588, 8655945 ####[address] [address] CBC w/ Auto Diffon 4 Basophils/100 WBC (Bld) 0.3 % Normal 0.0-2.0 [facility] Comment on above: Performed By: #### 2 940583, 6503931, 9546932, 56171560, 3086276 ####[address] [address] Basophils/Leukocytes Auto (Bld) [Pure # fraction] 0.0 E9/L Normal 0.0-0.2 [facility] Comment on above: Performed By: #### 2 084068, 0420180, 0415412, 50933770, 2059044 ####[address] [address] Eosinophils (Bld) [#/Vol] 0.0 E9/L Normal 0.0-0.5 [facility] Comment on above: Performed By: #### 2 761041, 6808738, 3750910, 21974544, 4381491 ####[address] [address] Eosinophils/100 WBC (Bld) 0.4 % Normal 0.0-8.0 [facility] Comment on above: Performed By: #### 2 886657, 3694557, 6279191, 32797405, 9666130 ####[place] [address] [place] [address] Erythrocyte distribution width (RBC) [Ratio] 18.3 % High 10.9-14.2 [facility] Comment on above: Performed By: #### 2 714346, 8774343, 3206211, 97191968, 2018502 ####[address] [address] Hematocrit (Bld) [Volume fraction] 32.6 % Low 34.0-46.0 [facility] Comment on above: Performed By: #### 2 634435, 7375695, 2475095, 78016146, 2226022 ####[address] [address] Hemoglobin (Bld) [Mass/Vol] 10.3 g/dL Low 12.0-16.0 [facility] Comment on above: Performed By: #### 2 684719, 3802246, 7573399, 76930735, 4494865 ####[address] [address] Lymphocytes (Bld) [#/Vol] 4.1 E9/L High 1.0-4.0 [facility] Comment on above: Performed By: #### 2 683988, 1766264, 2377884, 99453531, 2888254 ####[address] [address] Lymphocytes/100 WBC (Bld) 39.5 % Normal 14.0-50.0 [facility] Comment on above: Performed By: #### 2 768996, 8597595, 4948052, 60131975, 0653696 ####[address] [address] MCH (RBC) [Entitic mass] 23.7 pg Low 27.0-34.0 [facility] Comment on above: Performed By: #### 2 829448, 6401731, 8586377, 00099988, 7906110 ####[address] [address] MCHC (RBC) [Mass/Vol] 31.7 g/dL Normal 31.4-36.0 [facility] Comment on above: Performed By: #### 2 547870, 9363738, 4966175, 21062664, 6660261 ####[address] [address] MCV (RBC) [Entitic vol] 74.9 fL Low 80.0-100.0 [facility] Comment on above: Performed By: #### 2 475669, 7545911, 5310389, 88870244, 5019944 ####[address] [address] Monocytes (Bld) [#/Vol] 0.7 E9/L Normal 0.2-1.0 [facility] Comment on above: Performed By: #### 2 293923, 9793989, 4793912, 45574411, 3623208 ####[address] [address] Neutrophils (Bld) [#/Vol] 5.4 E9/L Normal 2.0-7.5 [facility] Comment on above: Performed By: #### 2 007013, 6972747, 8733433, 90934218, 5265364 ####[address] [address] Neutrophils/100 WBC (Bld) 53.1 % Normal 36.0-75.0 [facility] Comment on above: Performed By: #### 2 [id number], [id number], [id number], [id number], [id number] ####[address] [place] [address] Platelet 476.0 E9/L Normal 150.0-500.0 [facility] Comment on above: Performed By: #### 2 [id number], [id number], [id number], [id number], [id number] ####[facility] [id number] [place] [address] Platelet mean volume (Bld) [Entitic vol] 7.7 fL Normal 6.4-10.8 [facility] Comment on above: Performed By: #### 2 [id number], [id number], [id number], [id number], [id number] ####[facility] [id number] [place] [address] RBC (Bld) [#/Vol] 4.3 E12/L Normal 4.3-5.9 [facility] [facility] Comment on above: Performed By: #### 2 584524, 4062161, 3941659, 19464946, 2236882 ####[facility] [address] [place] [address] WBC corrected for nucl RBC Auto (Bld) [#/Vol] 10.3 E9/L Normal 4.0-11.0 [facility] Comment on above: Performed By: #### 2 838145, 1039362, 6310964, 97189139, 7159725 ####[facility] [address] [place] [address] CHEMISTRYOrdered By: SYSTEM SYSTEM on 09-30-2023 Albumin [...] Chem Discharge Instructionson Discharge Instructions [id number]#1.00TIFF Normal [facility] ED Clinical Summaryon 2023 ED Clinical Summary [address] [address] ED Clinical Summary Person Information Name: LIVIA NOYOLA [facility] Age: 38 Years : 1985 Sex: Female Language: Honduran PCP: NONE, XXXX Marital Status: Visit Id: [...] 09/30/2023 02:15:05 ADDRESS: [address] [place] [id number] PHYS DOC NOTES: MEDICAL INFORMATION: Prescriptions Given: [...] Follow up: With: Address: When: Ino Royal [address] [place] [address], [facility] [address], [place] [address] Business (1) In 3 days 10/03/2023 DIAGNOSIS: AP (abdominal pain); Ovarian cyst Normal [facility] ED Note-Physicianon 09-30-19 ED Note-Physician Basic Information Time Seen: Ritesh Heath DOEbenezer 09/29/2023 23:42 Chief Complaint pt states abdominal [...] taking oral tramadol, Toradol, Bentyl, and a Cypress at home and has had no significant relief. She does have some nausea but no vomiting. No change in bowel movements. No urinary symptoms. She reports that she has had multiple ovarian cysts and did schedule a REGISTERED SALES ASSISTANT appointment for possible hysterectomy but that is [...] and Complexity of Problems Differential Diagnosis: [] [facility] Data External documents reviewed: N/A My EKG [...] of 3.1 but is otherwise overall reassuring. 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 Royal and another REGISTERED SALES ASSISTANT in the area to see if he [...] mg/2 mL (more content not included)... Normal [facility] Comment on above: Result Comment: Elec [...] Follow these instructions at home: ? Take flpd-xhf-zubhkdn and prescription medicines only as told by [...] Reviewed: 11/06/2020 Elsevier Patient Education ? 2022 [employer] Normal [facility] ED Patient Summaryon 024 ED Patient Summary [address] [address] Patient Discharge Instructions Person Information Name: LIVIA NOYOLA Age: 38 Years Arrival Date: 09/29/2023 23:38:37 Discharge Diagnosis: AP (abdominal pain); Ovarian cyst Primary Care Physician: NONE, XXXX Provider Information Primary Provider: Ritesh Heath DO Advanced Machine Pecan Gatherer:Shazia The exam and treatment you received in the Emergency Department were for an urgent problem and are not intended as complete care. It is important that you follow up with a doctor, nurse practitioner, or physician?s electrician's assistant for ongoing care. If your symptoms [...] Follow-up Instructions: With: Address: When: Ino Royal [address] [place], [place] [address], [place] [address], [place] [address] Business (1) In 3 days 10/03/2023 In the event that this physician does not participate in your insurance network, please consult with your insurance company to find a nearby participating provider. Patient Education Materials: Ovarian Cyst A MESSAGE TO ALL PATIENTS REGARDING OPIOIDS PRESCRIPTION OPIOIDS: WHAT YOU NEED TO KNOW Prescription opioids can be used to help relieve vbeteyzp-xa-mqlfgk pain and are often prescribed following a [...] be struggling with addiction, tell your health healthcare liaison and ask for guidance or call [facility] National Helpline at 6-238-708-HELP. v Source: [place] Department o (more content not included)... Normal [facility] HEMATOLOGYOrdered By: SYSTEM SYSTEM on 09-30-2023 [...] 09-30-2023 Albumin [Mass/Vol] 4.4 g/dL Normal 3.3-5.0 [facility] Comment on above: Performed By: #### 2 274752, 0064608, 5397948, 03581508, 1883706 ####[facility] [address] [place] [address] Albumin/Globulin (S) [Mass conc ratio] 1.5 Normal 1.1-2.2 [facility] Comment on above: Performed By: #### 2 811285, 0450251, 6166327, 39339607, 8978628 ####[facility] [address] [place] [address] ALP [Catalytic activity/Vol] 64 Int._Unit/L Normal 21-98 [facility] Comment on above: Performed By: #### 2 567982, 7542482, 5543081, 18920150, 7386202 ####[facility] [address] [place] [address] ALT No additional P-5'-P [Catalytic activity/Vol] 9 Int._Unit/L Normal 6-46 [facility] Comment on above: Performed By: #### 2 042732, 4654296, 8195548, 88129094, 5584963 ####[facility] [address] [place] [address] AST [Catalytic activity/Vol] 12 Int._Unit/L Normal 5-43 [facility] Comment on above: Performed By: #### 2 445782, 4368069, 7045771, 45550809, 4786788 ####[facility] [address] [place] [address] Bilirubin [Mass/Vol] 0.2 mg/dL Normal 0.0-1.1 [facility] Comment on above: Performed By: #### 2 030446, 1177506, 7483897, 05698370, 9043527 ####[facility] [address] [place] [address] Bilirubin.direct [Mass/Vol] 0.0 mg/dL Normal 0.0-0.4 [facility] Comment on above: Performed By: #### 2 246466, 2902716, 7916303, 41109126, 6830687 ####[facility] [address] [place] [address] Bilirubin.indirect [Mass or moles/Vol] 0.2 mg/dL Normal 0.1-0.9 [facility] Comment on above: Performed By: #### 2 265261, 3405883, 1588238, 92617932, 8642700 ####[facility] [address] [place] [address] Globulin (S) [Mass/Vol] 3.0 g/dL Normal 1.4-4.0 [facility] Comment on above: Performed By: #### 2 757397, 1028804, 0459431, 39430794, 5547682 ####[facility] [address] [place] [address] Protein [Mass/Vol] 7.4 g/dL Normal 6.0-7.8 [facility] Comment on above: Performed By: #### 2 972664, 0046456, 7436741, 65809367, 2355643 ####[facility] [address] [place] [address] Lipase Levelon 09-30-2023 Lipase [Catalytic activity/Vol] 61 U/L High 13-58 [facility] Comment on above: Performed By: #### 2 722280, 8610462, 0202843, 04041579, 56747151 #### [facility] [address] [place] [address] SEROLOGYOrdered By: Ariadne Sheehan on 09-30-2023 HCG.beta subunit (U) [Moles/Vol] Negative Normal [facility] Man Sero U BetaHcg Qualon 09-30-2023 HCG.beta subunit (U) [Moles/Vol] Negative Normal [facility] Comment on above: Performed By: #### 2 506577, 7927345, 7455334, 13830934, 96781911 #### [facility] [address] [place] [address] UA with Cult Rflxon 09-30-19 24 Bacteria Auto Ql (U) Trace Normal Trace Fish er [facility] Comment on above: Performed By: #### 2 312982, 4244045, 2931632, 86854722, 25483846 #### [facility] [address] [place] [address] Bilirubin Ql (U) Negative Normal Negative [facility] Comment on above: Performed By: #### 2 674697, 7640651, 4857256, 78984268, 22525046 #### [facility] [address] [place] [address] Clarity (U) Clear Normal Clear [facility] Comment on above: Performed By: #### 2 019992, 6825482, 1393176, 82943298, 57006670 #### [facility] [address] [place] [address] Color (U) Light-Yellow Normal Yellow [facility] Comment on above: Result Comment: Micr oscopic readings are only performed on those samples that meet specific criteria set forth by [facility]. Performed By: #### 2 333106, 9720661, 3188619, 62894580, 87105759 #### [facility] [address] [place] [address] Epithelial cells.squamous Auto (Urine sed) [#/Area] 3-4 Abnormal 0-2 [facility] Comment on above: Performed By: #### 2 955138, 5385140, 7759109, 88928320, 56075411 #### [facility] [address] [place] [address] Glucose Ql (U) Negative Normal Negative [facility] Comment on above: Performed By: #### 2 074131, 9074833, 0836345, 80270304, 64380258 #### [facility] [address] [place] [address] Hemoglobin Auto test strip (U) [Mass/Vol] Trace Abnormal Negative [facility] Comment on above: Performed By: #### 2 288824, 1086250, 7109110, 63661335, 34840750 #### [facility] [address] [place] [address] Ketones Auto test strip Ql (U) Negative Normal Negative [facility] Comment on above: Performed By: #### 2 893331, 4766502, 7109780, 76692561, 82210108 #### [facility] [address] [place] [address] Leukocyte esterase Auto test strip Ql (U) 75 Bertrand/uL Abnormal Negative [facility] Comment on above: Performed By: #### 2 509466, 7255881, 0725727, 69491715, 40947659 #### [facility] [address] [place] [address] Mucus Auto Ql (U) Negative Normal Negative [facility] Comment on above: Performed By: #### 2 485042, 8299551, 6553950, 91835639, 13255766 #### [facility] [address] [place] [address] Nitrite Auto test strip Ql (U) Negative Normal Negative [facility] Comment on above: Performed By: #### 2 416927, 5076338, 8361034, 81893467, 00817062 #### [facility] [address] [place] [address] pH (U) 5.5 [pH] Invalid Interpretation Code 5.0-9.0 [facility] Comment on above: Performed By: #### 2 149627, 0652844, 2751407, 19932045, 03542235 #### [facility] [address] [place] [address] Protein Ql (U) Negative Normal Negative [facility] Comment on above: Performed By: #### 2 716823, 2057578, 7186426, 14258011, 46556221 #### [facility] [address] [place] [address] RBC Ql (U) 4-20 Abnormal 0-3 [facility] Comment on above: Performed By: #### 2 191774, 8768364, 5410059, 86690518, 72808871 #### [facility] [address] [place] [address] Specific gravity (U) [Rel density] 1.017 Invalid Interpretation Code 1.005-1.030 [facility] Comment on above: Performed By: #### 2 439085, 8821170, 8362294, 36908534, 64070131 #### [facility] [address] [place] [address] Urobilinogen (U) [Mass/Vol] Negative Normal Negative [facility] Comment on above: Performed By: #### 2 853011, 3196593, 0267378, 78551629, 45616300 #### [facility] [address] [place] [address] WBC Auto (Urine sed) [#/Area] 0-5 Normal 0-5 [facility] Comment on above: Performed By: #### 2 210150, 2600062, 6208200, 32499122, 56768033 #### [facility] [address] [place] [address] URINALYSISOrdered By: SYSTEM SYSTEM on 09-30-2023 Bacteria Auto Ql (U) Trace graded/HPF Normal Tra cegraded/ HPF [facility] UA Auto SS Bilirubin Ql (U) Negative Normal Negativemg/ d L FT UA Auto SS Clarity (U) Clear (09/30/23 12:08 AM) Normal Clear [facility] UA Auto SS Color (U) Light-Yellow 1 (09/30/23 12:08 AM) Normal Yellow [facility] UA Auto SS Comment on above: Interpretive Data: M icroscopic readings are only performed on those samples that meet specific criteria set forth by [facility]. Epithelial cells.squamous Auto (Urine sed) [...] Desc Clean Catch (09/30/23 12:08 AM) Normal [facility] UA Auto SS US Doppler Abd/Pelvis Comple kelby 09-30-2023 US Doppler Abd/Pelvis Complete Exam Date/Time: 09/30/2023 02:04 EDT Reason for Exam: Torsion Report PLEASE SEE US Pelvis Non-OB Complete REPORT DATED: 09/30/2023. Ordering Provider: Ritesh Heath FINAL REPORT Dictated: 09/30/2023 4:11 am Harvey Leslie MD Signed (Electronic Signature): 09/30/2023 4:11 am Signed by: Harvey Leslie MD Transcribed by: MILLIE Technologist: GERDA Ordaz [facility] US Pelvis Non-OB Completeon 09-30-2023 US [...] Transvaginal Ultrasound Performed Uterus Position Anteverted Normal [facility] US Transvaginal Non-OBon US Transvaginal Non-OB Exam Date/Time: 09/30/2023 02:03 EDT Reason for Exam: pssible torsion, known large cyst;Other (please specify) Report PLEASE SEE US Pelvis Non-OB Complete REPORT DATED: 09/30/2023. Ordering Provider: Ritesh Heath FINAL REPORT Dictated: 09/30/2023 4:11 am Harvey Leslie MD Signed (Electronic Signature): 09/30/2023 4:11 am Signed by: Harvey Leslie MD Transcribed by: MILLIE Technologist: GERDA Normal [facility] eGFRon 09-30-2023 eGFR 97 mL/min/1.73 m2 Normal >=59 [facility] Comment on above: Order Comment: Order added by Discern Expert. Performed By: #### 2 780675, 9500420, 4546144, 01936851, 77562844 #### [facility] [address] [place] [address] Consent for Treatmenton 09-11 Consent for Treatment [id number] #1.00TIFF Normal [facility] UA with Cult Rflxon 09-29-19 Type of Urine collection method Clean Catch [facility] Comment on above: Performed By: #### 2 721183, 1821174, 4788924, 23741174, 74469874 #### [facility] [address] [place] [address] ED Clinical Summaryon 2023 ED Clinical Summary [address] [address] ED Clinical Summary Person Information Name: LIVIA NOYOLA/Michelle Age: 38 Years : 1985 Sex: Female Language: Honduran PCP: NONE, XXXX Marital Status: Visit Id: [...] 09/26/2023 18:13:56 ADDRESS: [address] [place] [id number] PHYS DOC NOTES: MEDICAL INFORMATION: Prescriptions Given: New Medications [id number], [address], [place] [address], [phone] diflunisal (diflunisal 500 mg Tab) 1 Tablets [...] INFORMATION: Instructions: Follow up: With: Address: When: [employer] [facility] [address] [address] Business (1) In 3 days 09/29/2023 With: Address: When: Tarun BRADEN [address] [place] [address] [employer] (1) In 3 days 09/29/2023 With: Address: When: XXXX NONE , [place] In 3 days DIAGNOSIS: Abdominal pain; Constipation; Ovarian cyst Normal [facility] ED Patient Education Noteon 09-27-2023 ED Patient Education Note Normal [facility] ED Patient Summaryon 024 ED Patient Summary [address] [address] Patient Discharge Instructions Person Information Name: LIVIA NOYOLA Age: 38 Years Arrival Date: 09/26/2023 13:54:18 Discharge Diagnosis: Abdominal pain; Constipation; Ovarian cyst Primary Care Physician: NONE, XXXX Provider Information Primary Provider: Konstantin Penny DO Advanced Machine Pecan Gatherer:None The exam and treatment you received in the Emergency Department were for an urgent problem and are not intended as complete care. It is important that you follow up with a doctor, nurse practitioner, or physician?s electrician's assistant for ongoing care. If your symptoms become worse or you do not improve as expected and you are unable to reach your usual health care provider, you should return to the Emergency Department. We are available 24 hours a day. LIVIA NOYOLA has been given the following list of patient education materials, prescriptions and follow-up instructions: Follow-up Instructions: With: Address: When: Today [employer] [place] [address] [place] [address] Business (1) In 3 days 09/29/2023 With: Address: When: [facility] [address] [place] [address] [place] [address] Business (1) In 3 days 09/29/2023 With: Address: When: XXXX [facility] [place] In 3 days In the event that this physician does not participate in your insurance network, please consult with your insurance company to find a nearby participating provider. Patient Education Materials: A MESSAGE TO ALL PATIENTS REGARDING OPIOIDS PRESCRIPTION OPIOIDS: WHAT YOU NEED TO KNOW Prescription opioids can be used to help relieve qedlfhug-bf-ehnsrd pain and are often prescribed following a [...] and overdose. (more content not included)... Normal [facility] B hCG Qualon 09-26-2023 Beta HCG ( test) Ql Negative Normal [facility] Comment on above: Order Comment: FER dubois attempting lab work from IV start per Pt request. Phleb on standby if unable to get labs, [id number] 09/26/2023 14:42:36 EDT Performed By: #### 2 819228, 6859011, 6503181, 17332613, 96133123 #### [facility] [address] [place] [address] CBC w/ Auto Diffon 4 Anisocytosis Ql (Bld) PRESENT Invalid Interpretation Code [facility] Comment on above: Performed By: #### 2 142715, 7865476, 9998728, 11911473, 03017291 #### [facility] [address] [place] [address] Basophils/100 WBC (Bld) 0.8 % Normal 0.0-2.0 [facility] Comment on above: Performed By: #### 2 309561, 2932766, 6896414, 97183352, 94290040 #### [facility] [address] [place] [address] Basophils/Leukocytes Auto (Bld) [Pure # fraction] 0.1 E9/L Normal 0.0-0.2 [facility] Comment on above: Performed By: #### 2 999231, 2763735, 6570861, 07969547, 98736282 #### [facility] [address] [place] [address] Eosinophils (Bld) [#/Vol] 0.0 E9/L Normal 0.0-0.5 [facility] Comment on above: Performed By: #### 2 260583, 0071679, 0742240, 94701495, 41003652 #### [facility] [address] [place] [address] Eosinophils/100 WBC (Bld) 0.0 % Normal 0.0-8.0 [facility] Comment on above: Performed By: #### 2 517157, 8564953, 3662936, 28862769, 61101474 #### [facility] [address] [place] [address] Hypochromia Auto Ql (Bld) PRESENT Invalid Interpretation Code [facility] Comment on above: Performed By: #### 2 738106, 0574209, 4250169, 52253474, 13886883 #### [facility] [address] [place] [address] Lymphocytes (Bld) [#/Vol] 1.6 E9/L Normal 1.0-4.0 [facility] Comment on above: Performed By: #### 2 154858, 4354374, 5188313, 79136671, 67978165 #### [facility] [address] [place] [address] Lymphocytes/100 WBC (Bld) 22.7 % Normal 14.0-50.0 [facility] Comment on above: Performed By: #### 2 614836, 4821302, 4813561, 02920226, 62955155 #### [facility] [address] [place] [address] Microcytes Ql (Bld) PRESENT Invalid Interpretation Code [facility] Comment on above: Performed By: #### 2 131551, 7474598, 8468549, 10823778, 04477965 #### [facility] [address] [place] [address] Monocytes (Bld) [#/Vol] 0.3 E9/L Normal 0.2-1.0 [facility] Comment on above: Performed By: #### 2 585042, 9752395, 6274877, 43878643, 14596105 #### [facility] [address] [place] [address] Neutrophils (Bld) [#/Vol] 5.1 E9/L Normal 2.0-7.5 [facility] Comment on above: Performed By: #### 2 191408, 3500030, 7332830, 08306728, 95191796 #### [facility] [address] [place] [address] Neutrophils/100 WBC (Bld) 71.6 % Normal 36.0-75.0 [facility] Comment on above: Performed By: #### 2 920008, 7194212, 4612656, 65452229, 16698191 #### [facility] [address] [place] [address] Erythrocyte distribution width (RBC) [Ratio] 17.8 % High 10.9-14.2 [facility] Comment on above: Performed By: #### 2 340758, 0776607, 8694300, 03470192, 66678670 #### [facility] [address] [place] [address] Hematocrit (Bld) [Volume fraction] 36.2 % Normal 34.0-46.0 [facility] Comment on above: Performed By: #### 2 244838, 7960214, 5466674, 59030368, 68568643 #### [facility] [address] [place] [address] Hemoglobin (Bld) [Mass/Vol] 11.2 g/dL Low 12.0-16.0 [facility] Comment on above: Performed By: #### 2 408211, 1748634, 7799230, 38306378, 81524268 #### [facility] [address] [place] [address] MCH (RBC) [Entitic mass] 23.2 pg Low 27.0-34.0 [facility] Comment on above: Performed By: #### 2 811572, 3654623, 1610075, 46258834, 77662895 #### [facility] [address] [place] [address] MCHC (RBC) [Mass/Vol] 31.0 g/dL Low 31.4-36.0 [facility] Comment on above: Performed By: #### 2 559081, 2174748, 9262521, 24660041, 61646574 #### [facility] [address] [place] [address] MCV (RBC) [Entitic vol] 74.9 fL Low 80.0-100.0 [facility] Comment on above: Performed By: #### 2 270384, 7484577, 6471015, 23087665, 89135463 #### [facility] [address] [place] [address] Platelet mean volume (Bld) [Entitic vol] 7.5 fL Normal 6.4-10.8 [facility] Comment on above: Performed By: #### 2 957051, 3857113, 8234166, 39740241, 78494091 #### [facility] [address] [place] [address] Platelets (Bld) [#/Vol] 461.0 E9/L Normal 150.0-500.0 [facility] Comment on above: Performed By: #### 2 954076, 8529402, 3865725, 40489991, 40411690 #### [facility] [address] [place] [address] RBC (Bld) [#/Vol] 4.8 E12/L Normal 4.3-5.9 [facility] Comment on above: Performed By: #### 2 336682, 8472917, 9203520, 70047329, 95291176 #### [facility] [address] [place] [address] WBC corrected for nucl RBC Auto (Bld) [#/Vol] 7.1 E9/L Normal 4.0-11.0 [facility] Comment on above: Performed By: #### 2 256492, 4696559, 5315068, 02806934, 97840730 #### [facility] [address] [place] [address] CHEMISTRYOrdered By: SYSTEM SYSTEM on 09-26-2023 Amphetamines [...] 09-26-2023 Albumin [Mass/Vol] 4.7 g/dL Normal 3.3-5.0 [facility] Comment on above: Performed By: #### 2 786298, 6313593, 2004720, 26850897, 31032002 #### [facility] [address] [place] [address] Albumin/Globulin (S) [Mass conc ratio] 1.3 Normal 1.1-2.2 [facility] Comment on above: Performed By: #### 2 918356, 7243299, 9728869, 58279235, 52222683 #### [facility] [address] [place] [address] ALP [Catalytic activity/Vol] 61 Int._Unit/L Normal 21-98 [facility] Comment on above: Performed By: #### 2 009461, 1719896, 4688279, 38358723, 08143307 #### [facility] [address] [place] [address] ALT No additional P-5'-P [Catalytic activity/Vol] 11 Int._Unit/L Normal 6-46 [facility] Comment on above: Performed By: #### 2 639140, 6480533, 0920078, 12298826, 67206067 #### [facility] [address] [place] [address] Anion gap [Moles/Vol] 15 mmol/L Normal 6-16 [facility] Comment on above: Performed By: #### 2 187265, 9896919, 8942380, 39656855, 94262989 #### [facility] [address] [place] [address] AST [Catalytic activity/Vol] 16 Int._Unit/L Normal 5-43 [facility] Comment on above: Performed By: #### 2 658743, 9706741, 2304343, 24770516, 12738250 #### [facility] [address] [place] [address] Bilirubin [Mass/Vol] 0.8 mg/dL Normal 0.0-1.1 [facility] Comment on above: Performed By: #### 2 542034, 1574665, 4751592, 57770983, 19167331 #### [facility] [address] [place] [address] Calcium [Mass/Vol] 9.7 mg/dL Normal 8.9-11.1 [facility] Comment on above: Performed By: #### 2 797881, 7553267, 4673299, 72358264, 13481531 #### [facility] [address] [place] [address] Chloride [Moles/Vol] 107 mmol/L Normal 101-111 [facility] Comment on above: Performed By: #### 2 665779, 0774514, 2856329, 53508251, [id number] #### [facility] [address] [place] [address] CO2 [Moles/Vol] 20 mmol/L Low 21-31 [facility] Comment on above: Performed By: #### 2 106671, 9467747, 5422410, 62997239, [id number] #### [facility] [address] [place] [address] Creatinine [Mass/Vol] 0.7 mg/dL Normal 0.5-1.3 [facility] Comment on above: Performed By: #### 2 173644, 5753445, 1331125, 26818262, [id number] #### [facility] [address] [place] [address] Globulin (S) [Mass/Vol] 3.6 g/dL Normal 1.4-4.0 [facility] Comment on above: Performed By: #### 2 468376, 5758289, 9028401, 30757123, [id number] #### [facility] [address] [place] [address] Glucose [Mass/Vol] 120 mg/dL Normal 55-199 [facility] Comment on above: Performed By: #### 2 821559, 3374148, 7229292, 36485679, 30287430 #### [facility] [address] [place] [address] Potassium [Moles/Vol] 3.8 mmol/L Normal 3.5-5.3 [facility] Comment on above: Performed By: #### 2 887246, 2603250, 2725105, 28865975, 71031308 #### [facility] [address] [place] [address] Protein [Mass/Vol] 8.3 g/dL High 6.0-7.8 [facility] Comment on above: Performed By: #### 2 801301, 6715764, 6508693, 42895075, 21578945 #### [facility] [address] [place] [address] Sodium [Moles/Vol] 138 mmol/L Normal 135-145 [facility] Comment on above: Performed By: #### 2 732511, 1515526, 1288272, 45415139, 72010339 #### [facility] [address] [place] [address] Urea nitrogen [Mass/Vol] 5 mg/dL Normal 5-21 [facility] Comment on above: Performed By: #### 2 405553, 8592788, 2541108, 65535980, 28477708 #### [facility] [address] [place] [address] Urea nitrogen/Creatinine [Mass ratio] 7 No Units Low 10-20 [facility] Comment on above: Performed By: #### 2 444609, 4048498, 2505992, 73665936, 54191430 #### [facility] [address] [place] [address] CT Abdomen/Pelvis w/ Contras ton 09-26-2023 CT [...] 300 Contrast amount in ml's: 100 Normal [facility] Consent for Treatmenton 09-11 Consent for Treatment [id number] #1.00TIFF [facility] Discharge Instructionson Discharge Instructions [id number] [id number] #1.00TIFF Normal [facility] ED Note-Physicianon 09-26-19 24 ED Note-Physician Basic Information Time Seen: Konstantin Penny DO 09/26/2023 14:25 Chief Complaint c/o nausea and left abdominal pain radiating to back that started back up yesterday. took bentyl ibuprofen and tramadol around noon with no relief. recent admission to [facility] a week ago for intusseption, ovarian cyst, elevated lactic. denies V/D History of Present Illness 38 year old female presents to the emergency department with chief complaint of abdominal pain. patient states this pain started yesterday and has associated nausea without vomiting. Patient states she was admitted 10 days ago to [facility] for intussusception, ovarian cysts, and elevated lactic. She states she was admitted for one day and that she had another CT done that showed resolution of the intussusception. She reports she was discharged home but went back to [facility] ED yesterday for similar pain. She reports [...] and noted. We did review workup from [facility] just recently. Risks and benefits of obtaining [...] differential diagnosis. We did refer her to [facility] for follow-up. Patient also was found to have some constipation on CT therefore we talked about dietary and lifestyle modifications and I did prescribe MiraLAX here as well. She is to follow-up in the outpatient setting return to ER symptoms should change or worsen she is comfortable with this plan. I, Dr. Penny had a zorb-ur-ssiv interaction with the patient. I personally performed [...] q12hr, # 20 tab(s), Refills(s) 0, Pharmacy: [facility]/pharmacy #[id number], 165, cm, 09/26/23 14:18:00 EDT, Height/Length Dosing, 81.2, kg, 09/26/23 14:18:00 EDT, Weight Dosing hyoscyamine, 0.125 mg = 1 tab(s), Oral, QID, X 5 day(s), # 20 tab(s), Refills(s) 0, Pharmacy: [facility]/pharmacy #[id number], 165, cm, 09/26/23 14:18:00 EDT, Height/Length Dosing, 81.2, kg, 09/26/23 14:18:00 EDT, Weight Dosing ketorolac, 30 mg = 1 mL, Injection, IV, Once, Stop date 09/26/23 15:40:00 EDT, STAT, Start date 09/26/23 15:40:00 EDT, 09/26/23 15:40:00 EDT polyethylene glycol 3350, 17 gm, Oral, Daily, X 7 day(s), # 119 gm, Refills(s) 0, Pharmacy: [facility]/pharmacy #[id number], 165, cm, 09/26/23 14:18:00 EDT, (more content not included)... Normal [facility] Comment on above: Result Comment: Elec [...] Lipase [Catalytic activity/Vol] 18 U/L Normal 13-58 [facility] Comment on above: Performed By: #### 2 737976, 8712746, 2191064, 59938186, 25408984 #### [facility] [address] [place] [address] Outside Recordson 09-26-2023 Outside Records [id number] 0#1.00TIFF Normal [facility] SEROLOGYOrdered By: Nohemi Taylor on 09-26-2023 Beta HCG ( test) Ql Negative (09/26/23 2:45 PM) Normal [facility] Man Sero U Drug Screenon 09-26-2023 Amphetamines Screen method >1000 ng/mL Ql (U) Negative Normal NEGATIVE [facility] Comment on above: Result Comment: Nega tive Cutoff: <1000 ng/mL Performed By: #### 2 821521, 1025483, 0096223, 99969845, 55343869 #### [facility] [address] [place] [address] Barbiturates Screen Ql (U) Negative Normal NEGATIVE [facility] Comment on above: Result Comment: Nega tive Cutoff: <200 ng/mL Performed By: #### 2 826059, 3600134, 8213895, 73979673, 34708135 #### [facility] [address] [place] [address] Benzodiazepines Ql (U) Negative Normal NEGATIVE [facility] Comment on above: Result Comment: Nega tive Cutoff: <200 ng/mL Performed By: #### 2 043926, 1719876, 8118510, 50656837, 66623298 #### [facility] [address] [place] [address] Cannabinoids Screen Ql (U) Negative Normal NEGATIVE [facility] Comment on above: Result Comment: Nega tive Cutoff: <50 ng/mL Performed By: #### 2 302863, 0470154, 8339463, 75970232, 30665581 #### [facility] [address] [place] [address] Cocaine Ql (U) Negative Normal NEGATIVE [facility] Comment on above: Result Comment: Nega tive Cutoff: <300 ng/mL Performed By: #### 2 849119, 7828318, 5760738, 16491331, 62245251 #### [facility] [address] [place] [address] Opiates Screen Ql (U) Negative Normal NEGATIVE [facility] Comment on above: Result Comment: Nega tive Cutoff: <300 ng/mL Performed By: #### 2 771748, 8984818, 4376636, 70317473, 18578412 #### [facility] [address] [place] [address] Phencyclidine Screen method >25 ng/mL Ql (U) Negative Normal NEGATIVE [facility] Comment on above: Result Comment: Nega tive Cutoff: <25 ng/mL These drug screen results are to be used for medical (i.e., treatment) purposes only. Unconfirmed drug screening results must not be used for non-medical purposes (e.g., employment testing, legal testing). Performed By: #### 2 361950, 9660863, 7977021, 59572925, 85179540 #### [facility] [address] [place] [address] U Fentanyl Negative Normal NEGATIVE [facility] Comment on above: Result Comment: Nega tive Cutoff: <5 ng/mL These drug screen results are to be used for medical (i.e., treatment) purposes only. Unconfirmed drug screening results must not be used for non-medical purposes (e.g., employment testing, legal testing). Performed By: #### 2 027765, 8126204, 7699127, 93919201, 58969943 #### [facility] [address] [place] [address] UA with Cult Rflxon 09-26-19 24 Bilirubin Ql (U) Negative Normal Negative [facility] Comment on above: Performed By: #### 2 778325, 0665400, 1771559, 43631851, 67200931 #### [facility] [address] [place] [address] Clarity (U) Clear Normal Clear [facility] Comment on above: Performed By: #### 2 571693, 9573993, 6247385, 98301950, 76501724 #### [facility] [address] [place] [address] Color (U) Colorless Abnormal Yellow [facility] Comment on above: Result Comment: Micr oscopic readings are only performed on those samples that meet specific criteria set forth by [facility]. Performed By: #### 2 159172, 3090760, 5455615, 38311460, 28332541 #### [facility] [address] [place] [address] Glucose Ql (U) Negative Normal Negative [facility] Comment on above: Performed By: #### 2 955418, 4801911, 5781744, 83083452, 96740648 #### [facility] [address] [place] [address] Hemoglobin Auto test strip (U) [Mass/Vol] Negative Normal Negative [facility] Comment on above: Performed By: #### 2 902408, 3912997, 0345007, 74017791, 06294864 #### [facility] [address] [place] [address] Ketones Auto test strip Ql (U) Negative Normal Negative [facility] Comment on above: Performed By: #### 2 065435, 8676569, 9985485, 89569621, 43729398 #### [facility] [address] [place] [address] Leukocyte esterase Auto test strip Ql (U) Negative Normal Negative [facility] Comment on above: Performed By: #### 2 041040, 5277791, 2797414, 77945940, 87987613 #### [facility] [address] [place] [address] Nitrite Auto test strip Ql (U) Negative Normal Negative [facility] Comment on above: Performed By: #### 2 934255, 8689223, 6739277, 90869506, 60567765 #### [facility] [address] [place] [address] pH (U) 6.0 [pH] Invalid Interpretation Code 5.0-9.0 [facility] Comment on above: Performed By: #### 2 360418, 8750458, 0694099, 69523984, 21686915 #### [facility] [address] [place] [address] Protein Ql (U) Negative Normal Negative [facility] Comment on above: Performed By: #### 2 038461, 9085008, 3527206, 77370080, 39978055 #### [facility] [address] [place] [address] Specific gravity (U) [Rel density] 1.004 Invalid Interpretation Code 1.005-1.030 [facility] Comment on above: Performed By: #### 2 032436, 3869778, 9653174, 94805612, 97382178 #### [facility] [address] [place] [address] Urobilinogen (U) [Mass/Vol] Negative Normal Negative [facility] Comment on above: Performed By: #### 2 701683, 4614258, 5073114, 35977737, 13701669 #### [facility] [address] [place] [address] Type of Urine collection method Clean Catch Normal [facility] Comment on above: Performed By: #### 2 238454, 5105295, 1309427, 00301794, 94687148 #### [facility] [address] [place] [address] URINALYSISOrdered By: SYSTEM SYSTEM on 09-26-2023 Bilirubin Ql (U) Negative Normal Negativemg/ d L [facility] UA Auto SS Clarity (U) Clear (09/26/23 2:49 PM) Normal Clear [facility] UA Auto SS Color (U) Colorless 3 *ABN* (09/26/23 2:49 PM) Invalid Interpretation Code Yellow [facility] Auto SS Comment on above: Interpretive Data: M icroscopic readings are only performed on those samples that meet specific criteria set forth by [facility]. Glucose Ql (U) Negative Normal Negativemg/d L FT UA Auto SS Hemoglobin Auto test strip (U) [Mass/Vol] Negative Normal Negativemg/d L FT UA Auto SS Ketones Auto test strip Ql (U) Negative Normal Negativemg/d L FT UA Auto SS Leukocyte esterase Auto test strip Ql (U) Negative Normal NegativeLeu/ uL FT UA Auto SS Nitrite Auto test strip Ql (U) Negative Normal Negativemg/d L FT UA Auto SS pH (U) 6.0 *NA* (09/26/23 2:49 PM) Invalid Interpretation Code 5.0 - 9.0 [facility] UA Auto SS Protein Ql (U) Negative Normal Negativemg/d L [facility] UA Auto SS Specific gravity (U) [Rel density] 1.004 *NA* (09/26/23 2:49 PM) Invalid Interpretation Code 1.005 - 1.030 [facility] UA Auto SS Urobilinogen (U) [Mass/Vol] Negative Normal Negativemg/d L [facility] UA Auto SS URINALYSISOrdered By: Konsatntin dillard on 09-26-2023 UA Spec Desc Clean Catch (09/26/23 2:49 PM) Normal [facility] UA Auto SS US Pelvis Non-OB Completeon [...] Transvaginal Ultrasound Performed Uterus Position Anteverted Normal [facility] US Transvaginal Non-OBon US Transvaginal Non-OB Exam Date/Time: 09/26/2023 17:41 EDT Reason for Exam: Pelvic pain Report Please see ultrasound pelvis non-OB complete report Ordering Provider: Konstantin Penny FINAL REPORT Dictated: 09/26/2023 5:53 pm Chad Mo DO Signed (Electronic Signature): 09/26/2023 5:53 pm Signed by: Chad Mo DO Transcribed by: MILLIE Technologist: HAILEY Miller [facility] eGFRon 09-26-2023 eGFR 114 mL/min/1.73 m2 Normal >=59 [facility] Comment on above: Order Comment: Order added by Discern Expert. Performed By: #### 2 844807, 0908768, 0777616, 48008358, 29133004 #### [facility] [address] [place] [address] CBC With Platelet and Differ entialon 09-06-2023 Basophils (Bld) [#/Vol] 0.1 10*3/uL Normal 0.0-0.2 [facility] Comment on above: Performed By: #### C BCWD #### [facility] [address] [place] [address] Basophils/100 WBC (Bld) 0.6 % Normal [facility] Comment on above: Performed By: #### C BCWD #### [facility] [address] [place] [address] Eosinophils (Bld) [#/Vol] 0.1 10*3/uL Normal 0.0-0.7 [facility] Comment on above: Performed By: #### C BCWD #### [facility] [address] [place] [address] Eosinophils/100 WBC (Bld) 0.6 % Normal [facility] Comment on above: Performed By: #### C BCWD #### [facility] [address] [place] [address] Erythrocyte distribution width (RBC) [Ratio] 15.9 % Critically high 11.5-14.5 [facility] Comment on above: Performed By: #### C BCWD #### [facility] [address] [place] [address] Hematocrit (Bld) [Volume fraction] 34.5 % Low 37.0-47.0 [facility] Comment on above: Performed By: #### C BCWD #### [facility] [address] [place] [address] Hemoglobin (Bld) [Mass/Vol] 10.1 g/dL Low 12.0-16.0 [facility] Comment on above: Performed By: #### C BCWD #### [facility] [address] [place] [address] Lymphocytes (Bld) [#/Vol] 4.4 10*3/uL Normal 1.0-4.8 [facility] Comment on above: Performed By: #### C BCWD #### [facility] [address] [place] [address] Lymphocytes/100 WBC (Bld) 54.2 % Normal [facility] Comment on above: Performed By: #### C BCWD #### [facility] [address] [place] [address] MCH (RBC) [Entitic mass] 22.9 pg Low 27.0-31.3 [facility] Comment on above: Performed By: #### C BCWD #### [facility] [address] [place] [address] MCHC 29.3 % Low 33.0-37.0 [facility] Comment on above: Performed By: #### C BCWD #### [facility] [address] [place] [address] MCV (RBC) [Entitic vol] 78.2 fL Low 79.4-94.8 [facility] Comment on above: Performed By: #### C BCWD #### [facility] [address] [place] [address] Monocytes (Bld) [#/Vol] 0.5 10*3/uL Normal 0.2-0.8 [facility] Comment on above: Performed By: #### C BCWD #### [facility] [address] [place] [address] Monocytes/100 WBC (Bld) 6.5 % Normal [facility] Comment on above: Performed By: #### C BCWD #### [facility] [address] [place] [address] Neutrophils (Bld) [#/Vol] 3.1 10*3/uL Normal 1.4-6.5 [facility] Comment on above: Performed By: #### C BCWD #### [facility] [address] [place] [address] Neutrophils/100 WBC (Bld) 37.9 % Normal [facility] Comment on above: Performed By: #### C BCWD #### [facility] [address] [place] [address] Platelets (Bld) [#/Vol] 482 10*3/uL Critically high 130-40 0 [facility] Comment on above: Performed By: #### C BCWD #### [facility] [address] [place] [address] RBC (Bld) [#/Vol] 4.41 10*6/uL Normal 4.20-5.40 [facility] Comment on above: Performed By: #### C BCWD #### [facility] [address] [place] [address] WBC (Bld) [#/Vol] 8.1 10*3/uL Normal 4.8-10.8 [facility] Comment on above: Performed By: #### C BCWD #### [facility] [address] [place] [address] Comprehensive Metabolic Pane van 09-06-2023 Albumin [Mass/Vol] 4.4 g/dL Normal 3.5-4.6 [facility] Comment on above: Performed By: #### C MP #### [facility] [address] [place] [address] ALP [Catalytic activity/Vol] 72 U/L Normal 40-130 [facility] Comment on above: Performed By: #### C MP #### [facility] [address] [place] [address] ALT [Catalytic activity/Vol] 15 U/L Normal 0-33 [facility] Comment on above: Performed By: #### C MP #### [facility] [address] [place] [address] Anion gap [Moles/Vol] 11 mmol/L Normal 9-15 [facility] Comment on above: Performed By: #### C MP #### [facility] [address] [place] [address] AST [Catalytic activity/Vol] 18 U/L Normal 0-35 [facility] Comment on above: Performed By: #### C MP #### [facility] [address] [place] [address] Bilirubin [Mass/Vol] 0.4 mg/dL Normal 0.2-0.7 [facility] Comment on above: Performed By: #### C MP #### [facility] [address] [place] [address] Calcium [Mass/Vol] 9.5 mg/dL Normal 8.5-9.9 [facility] Comment on above: Performed By: #### C MP #### [facility] [address] [place] [address] Chloride [Moles/Vol] 102 mmol/L Normal 95-107 [facility] Comment on above: Performed By: #### C MP #### [facility] [address] [place] [address] CO2 [Moles/Vol] 24 mmol/L Normal 20-31 [facility] Comment on above: Performed By: #### C MP #### [facility] [address] [place] [address] Creatinine [Mass/Vol] 0.59 mg/dL Normal 0.50-0.90 [facility] Comment on above: Performed By: #### C MP #### [facility] [address] [place] [address] GFR >90.0 Normal >60 [facility] Comment on above: Result Comment: Pedi atric [...] secretion. Performed By: #### C MP #### [facility] [address] [place] [address] Globulin (S) [Mass/Vol] 3.5 g/dL Normal 2.3-3.5 M [facility] Comment on above: Performed By: #### C MP #### [facility] [address] [place] [address] Glucose [Mass/Vol] 98 mg/dL Normal 70-99 [facility] Comment on above: Performed By: #### C MP #### [facility] [address] [place] [address] Potassium [Moles/Vol] 3.2 mmol/L Low 3.4-4.9 [facility] Comment on above: Performed By: #### C MP #### [facility] [address] [place] [address] Protein [Mass/Vol] 7.9 g/dL Normal 6.3-8.0 [facility] Comment on above: Performed By: #### C MP #### [facility] [address] [place] [address] Sodium [Moles/Vol] 137 mmol/L Normal 135-144 [facility] Comment on above: Performed By: #### C MP #### [facility] [address] [place] [address] Urea nitrogen [Mass/Vol] 4 mg/dL Low 6-20 [facility] Comment on above: Performed By: #### C MP #### [facility] [address] [place] [address] US NON OB TRANSVAGINALon US NON OB [...] Jessy Campos MD 09/06/23 Final result Normal [facility] US PELVIS COMPLETEon 2 024 US PELVIS COMPLETE EXAMINATION: PELVIC ULTRASOUND [...] Jessy Campos MD 09/06/23 Final result Normal [facility] Urinalysis, reflex to cultur silvino 09-06-2023 Urine Reflexed to Culture Not Indicated Normal [facility] Comment on above: Performed By: #### U AR #### [facility] [address] [place] [id number] 132-95 Bilirubin Ql (U) Negative Normal Negative [facility] Comment on above: Performed By: #### U AR #### [facility] [address] [place] [address] Clarity (U) Clear Normal Clear [facility] Comment on above: Performed By: #### U AR #### [facility] [address] [place] [address] Color (U) Yellow Normal Straw/[place] [facility] Comment on above: Performed By: #### U AR #### [facility] [address] [place] [address] Glucose Ql (U) >=1000 Abnormal Negative [facility] Comment on above: Performed By: #### U AR #### [facility] [address] [place] [address] Hemoglobin Ql (U) TRACE Abnormal Negative [facility] Comment on above: Performed By: #### U AR #### [facility] [address] [place] [address] Ketones Ql (U) >=80 Abnormal Negative [facility] Comment on above: Performed By: #### U AR #### [facility] [address] [place] [address] Leukocyte esterase Test strip Ql (U) Negative Normal Negative [facility] Comment on above: Performed By: #### U AR #### [facility] [address] [place] [address] Nitrite Ql (U) Negative Normal Negative [facility] Comment on above: Performed By: #### U AR #### [facility] [address] [place] [address] pH (U) 5.0 [pH] Normal 5.0-9.0 [facility] Comment on above: Performed By: #### U AR #### [facility] [address] [place] [address] Protein Ql (U) TRACE Abnormal Negative [facility] Comment on above: Performed By: #### U AR #### [facility] [address] [place] [address] Specific gravity (U) [Rel density] 1.025 Normal 1.005-1.03 [facility] Comment on above: Performed By: #### U AR #### [facility] [address] [place] [address] Urobilinogen Qn (U) 0.2 {Ivone'U}/dL Normal < 2.0 [facility] Comment on above: Performed By: #### U AR #### [facility] [address] [place] [address] Urine Microscopicon 09-06-19 24 Bacteria LM.HPF (Urine sed) [#/Area] Negative Normal Negative [facility] Comment on above: Performed By: #### U ARELIS #### [facility] [address] [place] [address] Urine Epithelial Cells Auto 0-2 Normal 0-5 [facility] Comment on above: Performed By: #### U ARELIS #### [facility] [address] [place] [address] Urine Hyaline Casts Auto 0-1 Normal 0-5 [facility] Comment on above: Performed By: #### U ARELIS #### [facility] [address] [place] [address] Urine RBC Auto 3-5 Abnormal 0-5 [facility] Comment on above: Performed By: #### U ARELIS #### [facility] [address] [place] [address] Urine WBC Auto 0-2 Normal 0-5 [facility] Comment on above: Performed By: #### U ARELIS #### [facility] [address] [place] [address] ED Note-Physicianon 08-01-19 24 ED Note-Physician Basic [...] endometritis for which she follows with a REGISTERED SALES ASSISTANT at the [facility]. Review of Systems A 10 point [...] for discharge home and follow-up with her REGISTERED SALES ASSISTANT. Short course of pain medication as prescribed [...] Discharge D (more content not included)... Normal [facility] Comment on above: Result Comment: Elec tronically Signed By: Jignesh Dumont DO\.br\Date and Time Signed: 08/01/23 09:21 EST B hCG Qualon 07-31-2023 Beta HCG ( test) Ql Negative Normal [facility] Comment on above: Performed By: #### 2 205355, 7949388, 7664058, 82864682, 34782198 #### [facility] [address] [place] [address] BMPon 07-31-2023 Anion gap [Moles/Vol] 15 mmol/L Normal 6-16 [facility] Comment on above: Performed By: #### 2 381253, 4049306, 7032209, 95709499, 76110715 #### [facility] [address] [place] [address] BUN/Creat Ratio 4 No Units Low 10-20 [facility] Comment on above: Performed By: #### 2 271224, 5271937, 7907183, 23377787, 40397778 #### [facility] [address] [place] [address] Calcium [Mass/Vol] 9.6 mg/dL Normal 8.9-11.1 [facility] Comment on above: Performed By: #### 2 335342, 4051072, 1424981, 77334002, 44919422 #### [facility] [address] [place] [address] Chloride [Moles/Vol] 106 mmol/L Normal 101-111 [facility] Comment on above: Performed By: #### 2 766384, 6274383, 1081123, 93976673, 72265404 #### [facility] [address] [place] [address] CO2 [Moles/Vol] 21 mmol/L Normal 21-31 [facility] Comment on above: Performed By: #### 2 956010, 5624960, 6470957, 48753506, 70961889 #### [facility] [address] [place] [address] Creatinine [Mass/Vol] 0.9 mg/dL Normal 0.5-1.3 [facility] Comment on above: Performed By: #### 2 250069, 8699571, 6748823, 89314419, 85829932 #### [facility] [address] [place] [address] Glucose [Mass/Vol] 109 mg/dL Normal 55-199 [facility] Comment on above: Performed By: #### 2 520626, 9826063, 2857366, 14152106, 96300386 #### [facility] [address] [place] [address] Potassium [Moles/Vol] 3.6 mmol/L Normal 3.5-5.3 [facility] Comment on above: Performed By: #### 2 188204, 4982164, 3924592, 68718556, 21069186 #### [facility] [address] [place] [address] Sodium [Moles/Vol] 138 mmol/L Normal 135-145 [facility] Comment on above: Performed By: #### 2 035173, 1715073, 2449010, 39212245, 15406824 #### [facility] [address] [place] [address] Urea nitrogen [Mass/Vol] mg/dL Low 5-21 [facility] Comment on above: Performed By: #### 2 471703, 2378280, 0310284, 24886053, 76809349 #### [facility] [address] [place] [address] CBC w/ Auto Diffon 4 Anisocytosis Ql (Bld) PRESENT Invalid Interpretation Code [facility] Comment on above: Performed By: #### 2 824379, 4863075, 0071720, 65223213, 88487514 #### [facility] [address] [place] [address] Microcyte PRESENT Invalid Interpretation Code [facility] Comment on above: Performed By: #### 2 922657, 8799410, 6785205, 45121259, 03531447 #### [facility] [address] [place] [address] RBC morphology finding Nom (Bld) SEE MORPHOLOGY Invalid Interpretation Code [facility] Comment on above: Performed By: #### 2 812639, 2454688, 4122101, 84512300, 72570039 #### [facility] [address] [place] [address] Basophil Absolute 0.1 E9/L Normal 0.0-0.2 [facility] Comment on above: Performed By: #### 2 312548, 6130187, 8377976, 46332000, 18859509 #### [facility] [address] [place] [address] Basophils/100 WBC (Bld) 1.1 % Normal 0.0-2.0 [facility] Comment on above: Performed By: #### 2 773412, 3920713, 4696589, 51577177, 43470298 #### [facility] [address] [place] [address] Eos Absolute 0.0 E9/L Normal 0.0-0.5 [facility] Comment on above: Performed By: #### 2 026719, 3434308, 8346203, 27539361, 22315433 #### [facility] [address] [place] [address] Eosinophils/100 WBC (Bld) 0.2 % Normal 0.0-8.0 [facility] Comment on above: Performed By: #### 2 331325, 3911525, 1924294, 18845090, 79648534 #### [facility] [address] [place] [address] Erythrocyte distribution width (RBC) [Ratio] 16.5 % High 10.9-14.2 [facility] Comment on above: Performed By: #### 2 768385, 7388846, 3440094, 34226127, 57950551 #### [facility] [address] [place] [address] Hematocrit (Bld) [Volume fraction] 36.0 % Normal 34.0-46.0 [facility] Comment on above: Performed By: #### 2 163685, 3190793, 7271566, 81450067, 94696651 #### [facility] [address] [place] [address] Hemoglobin (Bld) [Mass/Vol] 11.4 g/dL Low 12.0-16.0 [facility] Comment on above: Performed By: #### 2 739205, 1449977, 8058872, 11835149, 55604719 #### [facility] [address] [place] [address] Lymph Absolute 2.2 E9/L Normal 1.0-4.0 [facility] Comment on above: Performed By: #### 2 607763, 4358115, 7356510, 17292522, 47956409 #### [facility] [address] [place] [address] Lymphocytes/100 WBC (Bld) 25.3 % Normal 14.0-50.0 [facility] Comment on above: Performed By: #### 2 487242, 5503925, 9942247, 09327495, 50890270 #### [facility] [address] [place] [address] MCH (RBC) [Entitic mass] 24.0 pg Low 27.0-34.0 [facility] Comment on above: Performed By: #### 2 694371, 5089320, 8364851, 74704256, 27310738 #### [facility] [address] [place] [address] MCHC (RBC) [Mass/Vol] 31.9 g/dL Normal 31.4-36.0 [facility] Comment on above: Performed By: #### 2 435042, 1772755, 6246545, 69420034, 25597890 #### [facility] [address] [place] [address] MCV (RBC) [Entitic vol] 75.2 fL Low 80.0-100.0 [facility] Comment on above: Performed By: #### 2 947317, 4091283, 7405060, 50298520, 09961052 #### [facility] [address] [place] [address] [place] Absolute 0.5 E9/L Normal 0.2-1.0 [facility] Comment on above: Performed By: #### 2 550097, 1970113, 4546794, 92320821, 72345620 #### [facility] [address] [place] [address] Monocytes/100 WBC (Bld) 5.4 % Normal 4.0-14.0 [facility] Comment on above: Performed By: #### 2 578549, 5385336, 3878232, 15778523, 18157597 #### [facility] [address] [place] [address] Neutro Absolute 5.9 E9/L Normal 2.0-7.5 [facility] Comment on above: Performed By: #### 2 989105, 0593447, 1517047, 41028850, 21014032 #### [facility] [address] [place] [address] Neutro Auto 68.0 % Normal 36.0-75.0 [facility] Comment on above: Performed By: #### 2 661258, 3759143, 9092850, 32797102, 23370186 #### [facility] [address] [place] [address] Platelet 612.0 E9/L High 150.0-500.0 [facility] Comment on above: Performed By: #### 2 537004, 7035202, 6468657, 37892512, 86075796 #### [facility] [address] [place] [address] Platelet mean volume (Bld) [Entitic vol] 7.4 fL Normal 6.4-10.8 [facility] Comment on above: Performed By: #### 2 271706, 6255608, 4349085, 19385978, 50311685 #### [facility] [address] [place] [address] RBC 4.7 E12/L Normal 4.3-5.9 [facility] Comment on above: Performed By: #### 2 975603, 8215839, 4715411, 73821292, 11958517 #### [facility] [address] [place] [address] WBC 8.6 E9/L Normal 4.0-11.0 [facility] Comment on above: Performed By: #### 2 267506, 5961698, 6507522, 65892459, 79950657 #### [facility] [address] [place] [address] CHEMISTRYOrdered By: SYSTEM SYSTEM on 07-31-2023 Albumin [...] REPORT Dictated: 07/31/2023 5:23 pm Akhil Stone MD. Signed (Electronic Signature): 07/31/2023 5:23 pm Signed by: Akhil Stone MD Transcribed by: MILLIE Technologist: LUCI Technical Comments Rectal Contrast Given? No Oral contrast amount in ml's: 0 Normal [facility] Discharge Instructionson Discharge Instructions [id number] 020 [id number] #1.00TIFF Normal [facility] ED Clinical Summaryon 2023 ED Clinical Summary [address] [address] ED Clinical Summary Person Information Name: LIVIA NOYOLA/NewMary Grace Age: 38 Years : 1985 Sex: Female Language: Honduran PCP: NONE, XXXX Marital Status: Visit Id: [...] 07/31/2023 18:03:59 ADDRESS: [address] [place] [id number] [facility] DOC NOTES: MEDICAL INFORMATION: Prescriptions Given: New Medications [facility], [address] [place] [id number], [phone] acetaminophen-oxycod one (Percocet 5 mg-325 mg oral [...] up: With: Address: When: Follow-up with your REGISTERED SALES ASSISTANT at [facility] In 3 days 08/03/2023 Comments: Call [...] worsening symptoms. DIAGNOSIS: Abdominal pain, acute Normal [facility] ED Patient Education Noteon 07-31-2023 ED [...] these instructions at home: Medicines ? Take wgay-jfu-guircfx and prescription medicines only as told by [...] your condition for any changes. ? Take jrtj-yuv-nkpaorb and prescription medicines only as told by [...] provider. Document Revised: 07/18/2020 Document Reviewed: 10/08/2019 [employer] Patient Education ? 2022 [employer]. Normal [facility] ED Patient Summaryon 024 ED Patient Summary [address] [address] Patient Discharge Instructions Person Information Name: LIVIA NOYOLA Age: 38 Years Arrival Date: 07/31/2023 15:33:06 Discharge Diagnosis: Abdominal pain, acute Primary Care Physician: NONE, XXXX Provider Information Primary Provider: Jignesh Dumont DO Advanced Machine Pecan Gatherer:None The exam and treatment you received in the Emergency Department were for an urgent problem and are not intended as complete care. It is important that you follow up with a doctor, nurse practitioner, or physician?s electrician's assistant for ongoing care. If your symptoms [...] Instructions: With: Address: When: Follow-up with your REGISTERED SALES ASSISTANT at [facility] In 3 days 08/03/2023 Comments: Call [...] opioids can be used to help relieve lbdqelvg-er-xitoky pain and are often prescribed following a [...] and al (more content not included)... Normal [facility] HEMATOLOGYOrdered By: Sloane Mazariegos on 07-31-2023 [...] Low 80.0 - 100.0 fL Remisol Heme [place] Absolute 0.5 E9/L Normal 0.2 - 1.0 [...] 07-31-2023 Albumin [Mass/Vol] 4.6 g/dL Normal 3.3-5.0 [facility] Comment on above: Performed By: #### 2 624110, 5012210, 4839184, 35566999, 08244511 #### [facility] [address] [place] [address] Albumin/Globulin [Mass ratio] 1.4 {ratio} Normal 1.1-2.2 [facility] Comment on above: Performed By: #### 2 998872, 3576125, 0291605, 39047427, 30621370 #### [facility] [address] [place] [address] Alk Phos 73 Int._Unit/L Normal 21-98 [facility] Comment on above: Performed By: #### 2 444026, 7083067, 3319217, 79714202, 03810899 #### [facility] [address] [place] [address] ALT 10 Int._Unit/L Normal 6-46 [facility] Comment on above: Performed By: #### 2 306793, 1832977, 0802547, 31490184, 30059149 #### [facility] [address] [place] [address] AST 11 Int._Unit/L Normal 5-43 [facility] Comment on above: Performed By: #### 2 576418, 3728811, 2055933, 70769800, 54937631 #### [facility] [address] [place] [address] Bili Direct 0.1 mg/dL Normal 0.0-0.4 [facility] Comment on above: Performed By: #### 2 550523, 1178048, 8871359, 60192782, 75490424 #### [facility] [address] [place] [address] Bili Indirect 0.4 mg/dL Normal 0.1-0.9 [facility] Comment on above: Performed By: #### 2 215825, 7284105, 0303158, 04936574, 03795125 #### [facility] [address] [place] [address] Bili Total 0.5 mg/dL Normal 0.0-1.1 [facility] Comment on above: Performed By: #### 2 293794, 6915058, 0175716, 90181171, 07488809 #### [facility] [address] [place] [address] Globulin (S) [Mass/Vol] 3.3 g/dL Normal 1.4-4.0 F [facility] Comment on above: Performed By: #### 2 451777, 3383176, 0584565, 51319962, 53214218 #### [facility] [address] [place] [address] Protein [Mass/Vol] 7.9 g/dL High 6.0-7.8 [facility] Comment on above: Performed By: #### 2 604782, 1564586, 0715036, 13181521, 10334232 #### [facility] [address] [place] [address] Monitor Recordon 07-31-2023 Monitor Record [id number] 2#1.00TIFF Normal [facility] SEROLOGYOrdered By: Felicity patel on 07-31-2023 Beta HCG ( test) Ql Negative (07/31/23 4:20 PM) Normal [facility] Man Sero UA With Cult Reflexon 2023 Bacteria LM Ql (Urine sed) TRACE Normal Trace [facility] Comment on above: Performed By: #### 1 6997868 ####[facility] [address] [place] [address] Bilirubin Ql (U) Negative Normal Negative [facility] Comment on above: Performed By: #### 1 9688782 ####[facility] [address] [place] [address] Clarity (U) CLEAR Normal Clear [facility] Comment on above: Performed By: #### 1 1898301 ####[facility] [address] [place] [address] Color (U) YELLOW Normal Yellow [facility] Comment on above: Performed By: #### 1 8596713 ####[facility] [address] [place] [address] Epithelial cells.squamous LM.HPF (Urine sed) [#/Area] 0-2 Normal 0-2 [facility] Comment on above: Performed By: #### 1 9809143 ####[facility] [address] [place] [address] Glucose Test strip (U) [Mass/Vol] Negative Normal Negative [facility] Comment on above: Performed By: #### 1 5711271 ####[facility] [address] [place] [address] Hemoglobin Ql (U) Negative Normal Negative [facility] Comment on above: Performed By: #### 1 5091154 ####[facility] [address] [place] [address] Ketones (U) [Mass/Vol] 1+ Abnormal Negative Fi [facility] Comment on above: Performed By: #### 1 6841566 ####[facility] [address] [place] [address] [place].plasma/[place]. RBC (Bld) [Mass ratio] 0-3 Normal 0-3 [facility] Comment on above: Performed By: #### 1 9272712 ####[facility] [address] [place] [address] Mucus Ql (Urine sed) TRACE Normal [facility] Comment on above: Performed By: #### 1 1615388 ####[facility] [address] [place] [address] Nitrite Ql (U) Negative Normal Negative [facility] Comment on above: Performed By: #### 1 2239278 ####[facility] [address] [place] [address] pH (U) 8.5 [pH] Invalid Interpretation Code 5.0-9.0 [facility] Comment on above: Performed By: #### 1 5692750 ####[facility] [address] [place] [address] Protein (U) [Mass/Vol] Negative Normal Negative [facility] Comment on above: Performed By: #### 1 6680968 ####[facility] [address] [place] [address] Specific gravity (U) [Rel density] 1.015 Invalid Interpretation Code 1.005-1.030 [facility] Comment on above: Performed By: #### 1 6334403 ####[facility] [address] [place], [place] [address] Type of Urine collection method Clean Catch Normal [facility] Comment on above: Performed By: #### 1 9627526 ####[place] [address] Urobilinogen Qn (U) 0.2 {Ivone'U}/dL Normal 0.0-1.0 [facility] Comment on above: Performed By: #### 1 6513068 ####[place] [address] WBC Auto Ql (U) Negative Normal Negative [facility] Comment on above: Performed By: #### 1 5064043 ####[facility] [address] [place] [address] WBC LM.HPF (Urine sed) [#/Area] 0-5 Normal 0-5 [facility] Comment on above: Performed By: #### 1 4948885 ####[place] [address] URINALYSISOrdered By: Felicity George on 07-31-2023 Bacteria [...] Interpretation Code Negative [facility] UA Auto SS [place].plasma/[place]. RBC (Bld) [Mass ratio] 0-3 /HPF Normal 0-3/HPF FT UA A uto SS Mucus Ql (Urine [...] [facility] UA Auto SS Urobilinogen Qn (U) 0.2449167 {Ivone'U}/dL Normal 0.0 - 1.0 EU/dL [facility] UA Auto SS WBC Auto Ql (U) Negative (07/31/23 4:30 PM) Normal Negative [facility] UA Auto SS WBC LM.HPF (Urine sed) [#/Area] 0-5 /HPF Normal 0-5/HPF [facility] UA Auto SS eGFRon 07-31-2023 eGFR 85 mL/min/1.73 m2 Normal >=59 [facility] Comment on above: Order Comment: Order added by Discern Expert. Performed By: #### 2 823918, 5005496, 3276509, 82918115, 21679413 #### [facility] [address] [place] [address] ED NOTEon 06-23-2023 ED NOTE HNO ID: [id number] Author: DENNIS CAMARGO RN Service: ? Author Type: Registered Nurse Type: ED Notes Filed: 06/22/2023 22:17 Note Text: Patient given verbal and written D/C instructions. Medications and follow up care discussed. Instructed to return to ED if conditions and symptoms persist or worsen. All questions addressed and answered pt verbalized understanding. Pt discharged to [facility], NAD noted. Normal [facility] HAV IgM Ser Qlon 06-23-2023 HAV IgM Ql (S) Negative Normal Negative [facility] Comment on above: Order Comment: Speci men Type: BLOOD SPECIMENOrdering Facility: [facility] Address: [address] [place] [address] Result Comment: No e vidence of recent infection with Hepatitis A virus. Performed By: #### 3 1204-1, 5195-3, 16446-1 ####[facility] LABCLIA [id number] [place] [address] [place] HBV core IgM Ser Qlon 2023 HBV core IgM Ql (S) Negative Normal Negative [facility] Comment on above: Order Comment: Speci [facility] Type: BLOOD SPECIMENOrdering Facility: [facility] Address: [address] [place] [address] Result Comment: No e vidence of recent infection with Hepatitis B virus. Should recent infection be suspected, repeat testing may be considered 3-4 weeks after this draw. Performed By: #### 3 1204-1, 5195-3, 78139-0 ####[facility] LABCLIA [id number] [place] [address] [place] HBV surface Ag Ser Qlon 06-13 HBV surface Ag Ql (S) Negative Normal Negative [facility] Comment on above: Order Comment: Speci [facility] Type: BLOOD SPECIMENOrdering Facility: [facility] Address: [address] [place] [address] Performed By: #### 3 1204-1, 5195-3, 24875-8 ####[facility] LABCLIA [id number] [place] [id number] [place] HCV RNA SerPl SENAIT+probe-aCnc on 06-23-2023 HCV RNA SENAIT+probe Qn Not detected Normal HCV RNA not detected by PCR. [facility] Comment on above: Order Comment: Speci men Type: BLOOD SPECIMEN Ordering Facility: [facility] Address: [address] [place] [address] Performed By: #### 1 1011-4 #### [facility] CLIA [id number] [facility] [address] OF [place] ALLIED HEALTHon 06-22-2023 ALLIED HEALTH HNO ID: [id number] Author: SELENA AMADOR RT(R) Service: Radiology Author [...] DATE: June 22, 2023 TIME: 7:46 PM [facility] HNO ID: [id number] Author: DELLA BEST RDMS, RVT Service: Radiology Author Type: Food Service Sales Representatives Type: Allied Health Filed: 06/22/2023 18:55 Note [...] RDMS, RVT June 22, 2023 6:55 PM [facility] CBC W Auto Differential pane l (Bld)on 06-22-2023 Basophils (Bld) [#/Vol] 0.03 10*3/uL Normal <0.11 [facility] Comment on above: Order Comment: Speci men Type: BLOOD SPECIMENOrdering Facility: [facility] Address: [address] [place] [address] Performed By: #### 5 7021-8 ####[facility] [id number] [place] [address] [place] Basophils/100 WBC (Bld) 0.6 % Normal [facility] Comment on above: Order Comment: Speci men Type: BLOOD SPECIMENOrdering Facility: [facility] Address: [address] [place] [address] Performed By: #### 5 7021-8 ####[facility]ORYCL[facility] [id number] [address] [place] [address] [place] Differential cell count method Nom (Bld) Auto Normal [facility] Comment on above: Order Comment: Speci men Type: BLOOD SPECIMENOrdering Facility: [facility] Address: [address] [place] [address] Performed By: #### 5 7021-8 ####[facility]ORY[facility] [id number] [address] [place] [address] [place] Eosinophils (Bld) [#/Vol] 0.03 10*3/uL Normal <0.46 [facility] Comment on above: Order Comment: Speci men Type: BLOOD SPECIMENOrdering Facility: [facility] Address: [address] [place] [address] Performed By: #### 5 7021-8 ####[facility]ORYCL[facility] [id number] [address] [place] [address] [place] Eosinophils/100 WBC (Bld) 0.6 % [facility] Comment on above: Order Comment: Speci men Type: BLOOD SPECIMENOrdering Facility: [facility] Address: [address] [place] [address] Performed By: #### 5 7021-8 ####[facility]ORYCLIA [id number] [address] [place] Erythrocyte distribution width (RBC) [Ratio] 16.5 % High 11.5-15.0 [facility] Comment on above: Order Comment: Speci men Type: BLOOD SPECIMENOrdering Facility: [facility] Address: [address] [place] [address] Performed By: #### 5 7021-8 ####[facility]ORYCLIA [id number] [address] [place] [address] [place] Hematocrit (Bld) [Volume fraction] 37.7 % Normal 36.0-46.0 [facility] Comment on above: Order Comment: Speci men Type: BLOOD SPECIMENOrdering Facility: [facility] Address: [address] [place] [address] Performed By: #### 5 7021-8 ####[facility]ATORYCLIA [id number] [place] [address] [place] Hemoglobin (Bld) [Mass/Vol] 11.7 g/dL Normal 11.5-15.5 [facility] Comment on above: Order Comment: Speci men Type: BLOOD SPECIMENOrdering Facility: [facility] Address: [address] [place] [address] Performed By: #### 5 7021-8 ####[facility]ATORYCLIA [id number] [place] [address] [place] Immature granulocytes (Bld) [#/Vol] 10*3/uL Normal <0.10 [facility] Comment on above: Order Comment: Speci men Type: BLOOD SPECIMENOrdering Facility: [facility] Address: [address] [place] [address] Performed By: #### 5 7021-8 ####HOLINESS LABORATORYCLIA [id number] [place] [address] [place] Immature granulocytes/100 WBC (Bld) 0.4 % Normal [facility] Comment on above: Order Comment: Speci men Type: BLOOD SPECIMENOrdering Facility: [facility] Address: [address] [place] [address] Performed By: #### 5 7021-8 ####HOLINESS LABORATORYCLIA [id number] [place] [address] [place] Lymphocytes (Bld) [#/Vol] 1.87 10*3/uL Normal 1.00-4.00 [facility] Comment on above: Order Comment: Speci men Type: BLOOD SPECIMENOrdering Facility: [facility] Address: [address] [place] [address] Performed By: #### 5 7021-8 ####HOLINESS LABORATORYCLIA [id number] [address] [place] [address] [place] Lymphocytes/100 WBC (Bld) 34.4 % Normal [facility] Comment on above: Order Comment: Speci men Type: BLOOD SPECIMENOrdering Facility: [facility] Address: [address] [place] [address] Performed By: #### 5 7021-8 ####HOLINESS LABORATORYCLIA [id number] [place] [address] [place] MCH (RBC) [Entitic mass] 24.5 pg Low 26.0-34.0 [facility] Comment on above: Order Comment: Speci men Type: BLOOD SPECIMENOrdering Facility: [facility] Address: [address] [place] [address] Performed By: #### 5 7021-8 ####HOLINESS LABORATORYCLIA [id number] [place] [address] [place] MCHC (RBC) [Mass/Vol] 31.0 g/dL Normal 30.5-36.0 [facility] Comment on above: Order Comment: Speci men Type: BLOOD SPECIMENOrdering Facility: [facility] Address: [address] [place] [address] Performed By: #### 5 7021-8 ####HOLINESS LABORATORYCLIA [id number] [address] [place] MCV (RBC) [Entitic vol] 79.0 fL Low 80.0-100.0 L [facility] Comment on above: Order Comment: Speci men Type: BLOOD SPECIMENOrdering Facility: [facility] Address: [address] [place] [address] Performed By: #### 5 7021-8 ####HOLINESS LABORATORYCLIA [id number] [address] [place] Monocytes (Bld) [#/Vol] 0.25 10*3/uL Normal <0.87 [facility] Comment on above: Order Comment: Speci men Type: BLOOD SPECIMENOrdering Facility: [facility] Address: [address] [place] [address] Performed By: #### 5 7021-8 ####HOLINESS LABORATORYCLIA [id number] [address] [place], [place] [address] [place] Monocytes/100 WBC (Bld) 4.6 % Normal [facility] Comment on above: Order Comment: Speci men Type: BLOOD SPECIMENOrdering Facility: [facility] Address: [address] [place] [address] Performed By: #### 5 7021-8 ####HOLINESS LABORATORYCLIA [id number] [place] [address] [place] Neutrophils (Bld) [#/Vol] 3.23 10*3/uL Normal 1.45-7.50 [facility] Comment on above: Order Comment: Speci men Type: BLOOD SPECIMENOrdering Facility: [facility] Address: [address] [place] [address] Performed By: #### 5 7021-8 ####HOLINESS LABORATORYCLIA [id number] [address] [place] Neutrophils/100 WBC (Bld) 59.4 % Normal [facility] Comment on above: Order Comment: Speci men Type: BLOOD SPECIMENOrdering Facility: [facility] Address: [address] [place] [address] Performed By: #### 5 7021-8 ####HOLINESS LABORATORYCLIA [id number] [place] [address] [place] Nucleated RBC (Bld) [#/Vol] 10*3/uL Normal <0.01 [facility] Comment on above: Order Comment: Speci men Type: BLOOD SPECIMENOrdering Facility: [facility] Address: [address] [place] [address] Performed By: #### 5 7021-8 ####HOLINESS LABORATORYCLIA [id number] [address] [place] Nucleated RBC/100 WBC (Bld) [Ratio] 0.0 /100 WBC Normal [facility] Comment on above: Order Comment: Speci men Type: BLOOD SPECIMENOrdering Facility: [facility] Address: [address] [place] [address], [place] [address] Performed By: #### 5 7021-8 ####HOLINESS LABORATORYCLIA [id number] [address] [place], [place] [address] [place] Platelet mean volume (Bld) [Entitic vol] 9.4 fL Normal 9.0-12.7 [facility] Comment on above: Order Comment: Speci men Type: BLOOD SPECIMENOrdering Facility: [facility] Address: [address] [facility] [place] [address] Performed By: #### 5 7021-8 ####HOLINESS LABORATORYCLIA [id number] [address] [place], [place] [address] [place] Platelets (Bld) [#/Vol] 486 10*3/uL High 150-400 [facility] Comment on above: Order Comment: Speci men Type: BLOOD SPECIMENOrdering Facility: [facility] Address: [address] [place] [address] Performed By: #### 5 7021-8 ####HOLINESS LABORATORYCLIA [id number] [address] [place] [address] [place] RBC (Bld) [#/Vol] 4.77 10*6/uL Normal 3.90-5.20 [facility] Comment on above: Order Comment: Speci men Type: BLOOD SPECIMENOrdering Facility: [facility] Address: [address] [place] [address] Performed By: #### 5 7021-8 ####HOLINESS LABORATORYCLIA [id number] [address] [place], [place] [address] [place] WBC (Bld) [#/Vol] 5.43 10*3/uL Normal 3.70-11.00 [facility] Comment on above: Order Comment: Speci men Type: BLOOD SPECIMENOrdering Facility: [facility] Address: [address] [place] [address] Performed By: #### 5 7021-8 ####HOLINESS LABORATORYCLIA [id number] [address] [place], [place] [address] [place] CT ABD/PEL W [...] Tissues: No significant finding. Lower thorax: Unremarkable. Manager Presentation (topogram) images: Unremarkable. IMPRESSION: No acute intra-abdominal or pelvic process identified. Daily Release And Dupe Printer: ANTONIO Transcribe Date/Time: Jun 22 2023 8:25P Dictated by : CHAD SCHILLING MD This examination was interpreted and the report reviewed and electronically signed by: CHAD SCHILLING MD on Jun 22 2023 8:29PM EST [id number] CN Normal [facility] Comprehensive metabolic 2000 panelon 06-22-2023 Albumin [Mass/Vol] 4.8 g/dL Normal 3.9-4.9 [facility] Comment on above: Order Comment: Speci men Type: BLOOD SPECIMENOrdering Facility: [facility] Address: [address] [place] [address] Performed By: #### 2 4323-8, 3040-3, 73803-1 ####HOLINESS LABORATORYCLIA [id number] [address] [place], [place] [address] [place] ALP [Catalytic activity/Vol] 108 U/L Normal 34-123 [facility] Comment on above: Order Comment: Speci men Type: BLOOD SPECIMENOrdering Facility: [facility] Address: [address] [place] [address] Performed By: #### 2 4323-8, 3040-3, ####HOLINESS LABORATORYCLIA [id number] [address] [place], [place] [address] [place] ALT [Catalytic activity/Vol] 63 U/L High 7-38 [facility] Comment on above: Order Comment: Speci men Type: BLOOD SPECIMENOrdering Facility: [facility] Address: [address] [place] [address] Performed By: #### 2 4323-8, 3039-3, ####HOLINESS LABORATORYCLIA [id number] [place] [address] [place] Anion gap [Moles/Vol] 13 mmol/L Normal 9-18 [facility] Comment on above: Order Comment: Speci men Type: BLOOD SPECIMENOrdering Facility: [facility] Address: [address] [place] [address] Performed By: #### 2 4323-8, 3039-3, ####HOLINESS LABORATORYCLIA [id number] [place] [address] [place] AST [Catalytic activity/Vol] 109 U/L High 13-35 [facility] Comment on above: Order Comment: Speci men Type: BLOOD SPECIMENOrdering Facility: [facility] Address: [address] [place] [address] Performed By: #### 2 4323-8, 0-3, ####HOLINESS LABORATORYCLIA [id number] [place] [address] [place] Bilirubin [Mass/Vol] 0.4 mg/dL Normal 0.2-1.3 [facility] Comment on above: Order Comment: Speci men Type: BLOOD SPECIMENOrdering Facility: [facility] Address: [address] [place] [address] Performed By: #### 2 4323-8, 3040-3, 11633-1 ####HOLINESS LABORATORYCLIA [id number] [place] [address] [place] Calcium [Mass/Vol] 9.6 mg/dL Normal 8.5-10.2 [facility] Comment on above: Order Comment: Speci men Type: BLOOD SPECIMENOrdering Facility: [facility] Address: [address] [place] [address] Performed By: #### 2 4323-8, 3039-3, ####HOLINESS LABORATORYCLIA [id number] [place] [address] [place] Chloride [Moles/Vol] 102 mmol/L Normal 97-105 [facility] Comment on above: Order Comment: Speci men Type: BLOOD SPECIMENOrdering Facility: [facility] Address: [address] [place] [address] Performed By: #### 2 4323-8, 3, ####HOLINESS LABORATORYCLIA [id number] [place] [address] [place] CO2 [Moles/Vol] 23 mmol/L Normal 22-30 [facility] Comment on above: Order Comment: Speci men Type: BLOOD SPECIMENOrdering Facility: [facility] Address: [address] [place] [address] Performed By: #### 2 4323-8, 3, ####HOLINESS LABORATORYCLIA [id number] [place] [address] [place] Creatinine [Mass/Vol] 0.64 mg/dL Normal 0.58-0.96 [facility] Comment on above: Order Comment: Speci men Type: BLOOD SPECIMENOrdering Facility: [facility] Address: [address] [place] [address] Performed By: #### 2 4323-8, 0-3, ####HOLINESS LABORATORYCLIA [id number] [place] [address] [place] Creatinine and Glomerular filtration rate.predicted panel (S/P/Bld) 118 mL/min/1.73m??? Normal >=60 [facility] Comment on above: Order Comment: Samiatigre conway Type: BLOOD SPECIMENOrdering Facility: [facility] Address: [address] [place] [address] Result Comment: Shelley mated Glomerular Filtration Rate [...] GFR. Performed By: #### 2 4323-8, 3040-3, ####HOLINESS LABORATORYCLIA [id number] [place] [address] [place] Glucose [Mass/Vol] 102 mg/dL High 74-99 [facility] Comment on above: Order Comment: Roselyn conway Type: BLOOD SPECIMENOrdering Facility: [facility] Address: [address] [place] [address] Result Comment: The [place] Diabetes Association (ADA) provides guidance for cutoff [...] Standards of Medical Care in Diabetes 2016, [place] [employer]. Diabetes Care. 2016.39(Suppl 1). Performed By: #### 2 4323-8, 3040-3, ####HOLINESS LABORATORYCLIA [id number] [place] [address] [place] Potassium [Moles/Vol] 3.8 mmol/L Normal 3.7-5.1 [facility] Comment on above: Order Comment: Speci men Type: BLOOD SPECIMENOrdering Facility: [facility] Address: [place] [address] Performed By: #### 2 4323-8, 0-3, ####HOLINESS LABORATORYCLIA [id number] [address] [place], [place] [address] [place] Protein [Mass/Vol] 8.2 g/dL High 6.3-8.0 [facility] Comment on above: Order Comment: Speci men Type: BLOOD SPECIMENOrdering Facility: [facility] Address: [place] [address] Performed By: #### 2 4323-8, 3039-3, ####HOLINESS LABORATORYCLIA [id number] [address] [place] [facility] Sodium [Moles/Vol] 138 mmol/L Normal 136-144 [facility] Comment on above: Order Comment: Speci men Type: BLOOD SPECIMENOrdering Facility: [facility] Address: [place] [address] Performed By: #### 2 4323-8, 3, ####HOLINESS LABORATORYCLIA [id number] [place] [address] [place] Urea nitrogen [Mass/Vol] 8 mg/dL Normal 7-21 [facility] Comment on above: Order Comment: Speci men Type: BLOOD SPECIMENOrdering Facility: [facility] Address: [place] [address] Performed By: #### 2 4323-8, 0-3, ####HOLINESS LABORATORYCLIA [id number] [place] [address] [place] ECG COMPLETEon 06-22-2023 ECG COMPLETE Ventricular Rate : 105 BPM Atrial Rate : 103 BPM P-R Interval : 152 ms QRS Duration : 77 ms Q-T Interval : 324 ms QTC Calculation(Bazett) : 429 ms Calculated P Quincy : 42 degrees Calculated R Quincy : 56 degrees Calculated T Quincy : 49 degrees Sinus tachycardia Low voltage, precordial leads Anteroseptal infarct, old Abnormal ECG no stemi 181 Confirmed by MD SEN BRENT ([id number]), non linear editor STEPHENIE ERIC ([id number]) on 06/23/2023 12:09:36 PM NAME : LIVIA NOYOLA PID : [id number] : 1985 Gender : Female Race : ORD : [id number] Procedure Date : Jun 22 2023 18:10:13 Edit Date : Jun 23 2023 12:09:40 Diagnosis: Sinus tachycardia Low voltage, precordial leads Anteroseptal infarct, old Abnormal ECG no stemi 1814 Confirmed by MD SEN BRENT ([id number]), non linear editor STEPHENIE ERIC (1940) on 06/23/2023 12:09:36 PM Test Reason : Tachycardia Location : 502 : [facility] ED Overread By : MD SEN BRENT Edited By : STEPHENIE ERIC Referred By : , Acquired by : DAVID [facility] ED NOTEon 06-22-2023 ED NOTE HNO ID: [id number] Author: DENNIS CAMARGO RN Service: ? Author Type: Registered Nurse Type: ED Notes Filed: 06/22/2023 21:56 Note Text: Assumed care of pt at this time and received report from previous RN. [facility] ED NOTE HNO ID: [id number] Author: MATILDE DAVIS RN Service: Nursing Author Type: Registered Nurse Type: ED Notes Filed: 06/22/2023 17:38 Note Text: Pt presents with LLQ pain that radiates to back that began this morning but worsened one hour prior to arrival. Denies urinary complaints. [facility] ED PROV NOTEon 06-22-2023 ED PROV NOTE HNO ID: [id number] Author: EVGENY SEN MD Service: Emergency Medicine [...] with some relief. History provided by: Patient pipe layer used: No PAST MEDICAL HISTORY Diagnosis Date [...] Hyperlipidemia Father Heart Father bypass surgery, stents, PA Social History Tobacco Use Smoking status: Never [...] Ref Range (more content not included)... Normal [facility] ED Triage Noteon 06-22-2023 ED Triage Note HNO ID: [id number] Author: TABBY LUCIANO PA-C Service: ? Author Type: Physician Meter Reader Type: ED Triage Notes Filed: 06/22/2023 17:43 [...] treating team. SIGNATURE: Tabby Luciano PA-C Normal [facility] HCG Preg Ur Qlon 06-22-2023 HCG ( test) Ql (U) Negative Normal Negative [facility] Comment on above: Order Comment: Speci men Type: URINE SPECIMENOrdering Facility: [facility] Address: [address] [place] [address] Result Comment: This test is intended to aid in the early detection of . Very dilute urine samples, as indicated by a low specific gravity, may not contain member service representative levels of hCG. This test detects [...] for . Performed By: #### 2 106-3 ####HOLINESS LABORATORYIA [id number] [place] [id number] [place] Lipase SerPl-cCncon 06-22-19 24 Lipase [Catalytic activity/Vol] 34 U/L Normal 16-61 [facility] Comment on above: Order Comment: Speci men Type: BLOOD SPECIMENOrdering Facility: [facility] Address: [address] [place] [address] Performed By: #### 2 4323-8, 3040-3, 69275-9 ####HOLINESS PEACEHEALTHIA [id number] [place] [address] [place] Magnesium SerPl-mCncon 06-22 Magnesium [Mass/Vol] 2.2 mg/dL Normal 1.7-2.3 [facility] Comment on above: Order Comment: Speci men Type: BLOOD SPECIMENOrdering Facility: [facility] Address: [address] [place] [address] Performed By: #### 2 4323-8, 3040-3, 17097-8 ####HOLINESS [facility] [id number] [place] [address] [place] US DOPPLER COMPLETEon [...] and stored in a permanent archive. MQ: [facility]_2021 COMPARISON: None RESULT: Uterus: -Size: 8.1 [...] Normal sonographic appearance of the female pelvis. Daily Release And Dupe Printer: ANTONIO Transcribe Date/Time: Jun 22 2023 7:44P Dictated by : Vasu BURNS MD This examination was interpreted and the report reviewed and electronically signed by: Vasu BURNS MD on Jun 22 2023 7:48PM EST [id number] CN [facility] FEMALE PELVIS TRANSABD LT Don 06-22-2023 [...] and stored in a permanent archive. MQ: [facility]_2021 COMPARISON: None RESULT: Uterus: -Size: 8.1 [...] Normal sonographic appearance of the female pelvis. Daily Release And Dupe Printer: ROBERT[place] Transcribe Date/Time: Jun 22 2023 7:44P Dictated by : Vasu BURNS MD This examination was interpreted and the report reviewed and electronically signed by: Vasu BURNS MD on Jun 22 2023 7:48PM EST [id number] VAN [facility] US FEMALE PELVIS TRANSVAGon 06-22-2023 FEMALE PELVIS TRANSVAG [...] Normal sonographic appearance of the female pelvis. Daily Release And Dupe Printer: PSCB Transcribe Date/Time: Jun 22 2023 7:44P Dictated by : Vasu BURNS MD This examination was interpreted and the report reviewed and electronically signed by: Vasu BURNS MD on Jun 22 2023 7:48PM EST [id number] VAN [facility] Urinalysis complete panel (U )on 06-22-2023 Bacteria LM.HPF (Urine sed) [#/Area] Few Abnormal None Seen [facility] Comment on above: Order Comment: Speci men Type: URINE SPECIMENOrdering Facility: [facility] Address: [address] [place], [place] [address] Performed By: #### 2 4356-8 ####HOLINESS LABORATORYCLIA [id number] [address] [place], [place] [address] [place] Bilirubin Ql (U) Negative Normal Negative [facility] Comment on above: Order Comment: Speci men Type: URINE SPECIMENOrdering Facility: [facility] Address: [address] [place] [address] Performed By: #### 2 4356-8 ####HOLINESS LABORATORYCLIA [id number] [address] [place] Clarity (Unsp spec) Clear Normal Clear [facility] Comment on above: Order Comment: Speci men Type: URINE SPECIMENOrdering Facility: [facility] Address: [address] [place] [address] Performed By: #### 2 4356-8 ####HOLINESS LABORATORYCLIA [id number] [place] [address] [place] Color (U) Yellow Normal Yellow [facility] Comment on above: Order Comment: Speci men Type: URINE SPECIMENOrdering Facility: [facility] Address: [address] [place] [address] Performed By: #### 2 4356-8 ####HOLINESS LABORATORYCLIA [id number] [address] [place] Epithelial cells LM.HPF (Urine sed) [#/Area] Few Normal [facility] Comment on above: Order Comment: Speci men Type: URINE SPECIMENOrdering Facility: [facility] Address: [address] [place] [address] Performed By: #### 2 4356-8 ####HOLINESS LABORATORYCLIA [id number] [place] [id number] [place] Glucose Test strip (U) [Mass/Vol] Negative Normal Negative [facility] Comment on above: Order Comment: Speci men Type: URINE SPECIMENOrdering Facility: [facility] Address: [address] [place] [address] Performed By: #### 2 4356-8 ####HOLINESS LABORATORYCLIA [id number] [address] [place] [address] [place] Hemoglobin Ql (U) Negative Normal Negative [facility] Comment on above: Order Comment: Speci men Type: URINE SPECIMENOrdering Facility: [facility] Address: [address] [place] [address] Performed By: #### 2 4356-8 ####HOLINESS LABORATORYCLIA [id number] [address] [place] [address] [place] Ketones Ql (U) Trace Abnormal Negative [facility] Comment on above: Order Comment: Speci men Type: URINE SPECIMENOrdering Facility: [facility] Address: [address] [place] [address] Performed By: #### 2 4356-8 ####HOLINESS LABORATORYCLIA [id number] [address] [place] Leukocyte esterase Test strip Ql (U) Negative Normal Negative [facility] Comment on above: Order Comment: Speci men Type: URINE SPECIMENOrdering Facility: [facility] Address: [address] [place] [address] Performed By: #### 2 4356-8 ####HOLINESS LABORATORYCLIA [id number] [address] [place] Nitrite Ql (U) Negative Normal Negative [facility] Comment on above: Order Comment: Speci men Type: URINE SPECIMENOrdering Facility: [facility] Address: [address] [place] [address] Performed By: #### 2 4356-8 ####HOLINESS LABORATORYCLIA [id number] [address] [place] [address] [place] pH (U) 6.5 [pH] Normal 5.0-8.0 [facility] Comment on above: Order Comment: Speci men Type: URINE SPECIMENOrdering Facility: [facility] Address: [address] [place] [address] Performed By: #### 2 4356-8 ####HOLINESS LABORATORYCLIA [id number] [address] [place] [address] [place] Protein (U) [Mass/Vol] Negative Normal Negative [facility] Comment on above: Order Comment: Speci men Type: URINE SPECIMENOrdering Facility: [facility] Address: [address] [place] [address] Performed By: #### 2 4356-8 ####HOLINESS LABORATORYCLIA [id number] [address] [place] [address] [place] RBC LM.HPF (Urine sed) [#/Area] 0-3 /HPF Normal 0-3 /HPF [facility] Comment on above: Order Comment: Speci men Type: URINE SPECIMENOrdering Facility: [facility] Address: [address] [place] [address] Performed By: #### 2 4356-8 ####HOLINESS LABORATORYCLIA [id number] [address] [place] Specific gravity (U) [Rel density] 1.020 Normal 1.005-1.030 [facility] Comment on above: Order Comment: Speci men Type: URINE SPECIMENOrdering Facility: [facility] Address: [address] [place] [address] Performed By: #### 2 4356-8 ####HOLINESS LABORATORYCLIA [id number] [address] Urobilinogen Ql (U) 1.0 EU/dL Normal 0.2-1.0 EU/dL [facility] Comment on above: Order Comment: Speci men Type: URINE SPECIMENOrdering Facility: [facility] Address: [address] [place] [address] Performed By: #### 2 4356-8 ####HOLINESS LABORATORYCLIA [id number] [address] [place] WBC LM.HPF (Urine sed) [#/Area] 0-5 /HPF Normal 0-5 /HPF [facility] Comment on above: Order Comment: Speci men Type: URINE SPECIMENOrdering Facility: [facility] Address: [address] [place] [address] Performed By: #### 2 4356-8 ####HOLINESS LABORATORYCLIA [id number] [place] [address] [place] Basic Metabolic Profon 05-30 Anion gap [Moles/Vol] 12 mmol/L Normal 9-17 [facility] Comment on above: Performed By: #### B MP, LIP, LIVP, CDP, HCG #### [facility] [address] [place], [place] [id number] Hand Compositor: Jennifer Freire MD BUN/CRE Ratio 7 Low 9-20 [facility] Comment on above: Performed By: #### B MP, LIP, LIVP, CDP, HCG #### [facility] [address] [place], [place] [address] Hand Compositor: Jennifer Freire MD Calcium [Mass/Vol] 9.8 mg/dL Normal 8.6-10.4 [place] [facility] Comment on above: Performed By: #### B MP, LIP, LIVP, CDP, HCG #### [facility] [address] [place], [place] [phone] Hand Compositor: Jennifer Freire MD Chloride [Moles/Vol] 99 mmol/L Normal 98-107 [facility] Comment on above: Performed By: #### B MP, LIP, LIVP, CDP, HCG #### [facility] [address] [place], [place] [phone] Hand Compositor: Jennifer Freire MD CO2 [Moles/Vol] 24 mmol/L Normal 20-[address] [facility] Comment on above: Performed By: #### B MP, LIP, LIVP, CDP, HCG #### [facility] [address] [place], [place] [phone] Hand Compositor: Jennifer Freire MD Creatinine [Mass/Vol] 0.7 mg/dL Normal 0.5-0.9 [facility] Comment on above: Performed By: #### B MP, LIP, LIVP, CDP, HCG #### [facility] [address] [place], [place] [phone] Hand Compositor: Jennifer Freire MD GFR/1.73 sq M.predicted among non-blacks MDRD (S/P/Bld) [Vol rate/Area] mL/min/{1.73_m2} Normal >60 [facility] Comment on above: Result Comment: These [...] B MP, LIP, LIVP, CDP, HCG #### [facility] [address] [place], [place] [phone] Hand Compositor: Jennifer Freire MD Glucose [Mass/Vol] 97 mg/dL Normal 70-99 [facility] Comment on above: Performed By: #### B MP, LIP, LIVP, CDP, HCG #### [facility] [address] [place] [address] Hand Compositor: Jennifer Freire MD Potassium [Moles/Vol] 3.9 mmol/L Normal 3.7-5.3 [facility] Comment on above: Performed By: #### B MP, LIP, LIVP, CDP, HCG #### [facility] [address] [place], [place] [phone] Hand Compositor: Jennifer Freire MD Sodium [Moles/Vol] 135 mmol/L Normal 135-144 [facility] Comment on above: Performed By: #### B MP, LIP, LIVP, CDP, HCG #### [facility] [address] [place] [address] Hand Compositor: Jennifer Freire MD Urea nitrogen [Mass/Vol] 5 mg/dL Low 6-20 [facility] Comment on above: Performed By: #### B MP, LIP, LIVP, CDP, HCG #### [facility] [address] [place] [phone] Hand Compositor: Jennifer Freire MD CBC with Diffon 05-30-2023 Abs. Basophil 0.02 k/uL Normal 0.00-0.20 [facility] Comment on above: Performed By: #### B MP, LIP, LIVP, CDP, HCG #### [facility] [address] [place] [address] Hand Compositor: Jennifer Freire MD Abs.Imm.Granulocyte 0.00 k/uL Normal 0.00-0.30 [facility] Comment on above: Performed By: #### B MP, LIP, LIVP, CDP, HCG #### [facility] [address] [place] [address] Hand Compositor: Jennifer Freire MD Abs.Neutrophil (Seg) 2.21 k/uL Low 2.5-7.0 [facility] Comment on above: Performed By: #### B MP, LIP, LIVP, CDP, HCG #### [facility] [address] [place] [address] Hand Compositor: Jennifer Freire MD Basophils/100 WBC (Bld) 0 % Normal 0-2 [facility] Comment on above: Performed By: #### B MP, LIP, LIVP, CDP, HCG #### [facility] [address] [place] [address] Hand Compositor: Jennifer Freire MD Eosinophils (Bld) [#/Vol] 0.05 10*3/uL Normal 0.00-0.40 [facility] Comment on above: Performed By: #### B MP, LIP, LIVP, CDP, HCG #### [facility] [address] [place] [address] Hand Compositor: Jennifer Freire MD Eosinophils/100 WBC (Bld) 1 % Normal 0-5 [facility] Comment on above: Performed By: #### B MP, LIP, LIVP, CDP, HCG #### [facility] [address] [place], [place] [phone] Hand Compositor: Jennifer Freire MD Erythrocyte distribution width (RBC) [Ratio] 16.5 % High 12.1-15.2 [facility] Comment on above: Performed By: #### B MP, LIP, LIVP, CDP, HCG #### [facility] [address] [place], [place] [phone] Hand Compositor: Jennifer Freire MD Hematocrit (Bld) [Volume fraction] 37.2 % Normal 36.0-46.0 [facility] Comment on above: Performed By: #### B MP, LIP, LIVP, CDP, HCG #### [facility] [address] [place] [address] Hand Compositor: Jennifer Freire MD Hemoglobin (Bld) [Mass/Vol] 11.7 g/dL Low 12.0-16.0 [facility] Comment on above: Performed By: #### B MP, LIP, LIVP, CDP, HCG #### [facility] [address] [place] [address] Hand Compositor: Jennifer Freire MD Immature granulocytes/100 WBC (Bld) 0 % Normal 0-5 [facility] Comment on above: Performed By: #### B MP, LIP, LIVP, CDP, HCG #### [facility] [address] [place], [place] [phone] Hand Compositor: Jennifer Freire MD Lymphocytes (Bld) [#/Vol] 2.45 10*3/uL Normal 1.00-4.80 [facility] Comment on above: Performed By: #### B MP, LIP, LIVP, CDP, HCG #### [facility] [address] [place], [place] [phone] Hand Compositor: Jennifer Freire MD Lymphocytes/100 WBC (Bld) 48 % High 15-40 [facility] Comment on above: Performed By: #### B MP, LIP, LIVP, CDP, HCG #### [facility] [address] [place] [address] Hand Compositor: Jennifer Freire MD MCH (RBC) [Entitic mass] 24.2 pg Low 26.0-34.0 [facility] Comment on above: Performed By: #### B MP, LIP, LIVP, CDP, HCG #### [facility] [address] [place] [address] Hand Compositor: Jennifer Freire MD MCHC (RBC) [Mass/Vol] 31.5 g/dL Normal 31.0-37.0 [facility] Comment on above: Performed By: #### B MP, LIP, LIVP, CDP, HCG #### [facility] [address] [place] [address] Hand Compositor: Jennifer Freire MD MCV (RBC) [Entitic vol] 76.9 fL Low 80.0-100.0 M [facility] Comment on above: Performed By: #### B MP, LIP, LIVP, CDP, HCG #### [facility] [address] [place] [address] Hand Compositor: Jennifer Freire MD Monocytes (Bld) [#/Vol] 0.37 10*3/uL Normal 0.00-1.00 [facility] Comment on above: Performed By: #### B MP, LIP, LIVP, CDP, HCG #### [facility] [address] [place] [address] Hand Compositor: Jennifer Freire MD Monocytes/100 WBC (Bld) 7 % Normal 4-8 M [facility] Comment on above: Performed By: #### B MP, LIP, LIVP, CDP, HCG #### [facility] [address] [place], [place] [phone] Hand Compositor: Jennifer Freire MD Neutrophil (Seg) 43 % Low 47-[address] [facility] Comment on above: Performed By: #### B MP, LIP, LIVP, CDP, HCG #### [facility] [address] [place] [phone] Hand Compositor: Jennifer Freire MD Platelet mean volume (Bld) [Entitic vol] 8.7 fL Normal 6.0-12.0 [facility] Comment on above: Performed By: #### B MP, LIP, LIVP, CDP, HCG #### [facility] [address] [place] [address] Hand Compositor: Jennifer Freire MD Platelets (Bld) [#/Vol] 512 10*3/uL High 140-450 [facility] Comment on above: Performed By: #### B MP, LIP, LIVP, CDP, HCG #### [facility] [address] [place] [phone] Hand Compositor: Jennifer Freire MD RBC (Bld) [#/Vol] 4.84 10*6/uL Normal 4.00-5.20 [facility] Comment on above: Performed By: #### B MP, LIP, LIVP, CDP, HCG #### [facility] [address] [place] [address] Hand Compositor: Jennifer Freire MD WBC (Bld) [#/Vol] 5.1 10*3/uL Normal 3.5-11.0 [facility] Comment on above: Performed By: #### B MP, LIP, LIVP, CDP, HCG #### [facility] [address] [place] [phone] Hand Compositor: Jennifer Freire MD CT ABDOMEN PELVIS W [...] Marilyn Narvaez MD 05/30/23 Final result Normal [facility] HCG Screen, Bloodon 05-30-20 HCG Screen, Blood Negative Normal NEG [facility] Comment on above: Result Comment: Spec imens with hCG levels near the threshold of the test (25 mIU/mL) may give a negative or indeterminate result. In such cases, another test should be performed with a new specimen in 48-72 hours. If early is suspected clinically in this setting, correlation with quantitative serum b-hCG level is suggested. [facility] has confirmed the use of plasma for this test. This has not been cleared or approved by the U.S. Food and Drug Administration. The FDA has determined that such clearance is not necessary. Performed By: #### B MP, LIP, LIVP, CDP, HCG #### [facility] [address] [place] [address] Hand Compositor: Jennifer Freire MD Lipaseon 05-30-2023 Lipase [Catalytic activity/Vol] 28 U/L Normal 13-60 [facility] Comment on above: Performed By: #### B MP, LIP, LIVP, CDP, HCG #### [facility] [address] [place] [address] Hand Compositor: Jennifer Freire MD Liver Profileon 05-30-2023 Albumin [Mass/Vol] 4.3 g/dL Normal 3.5-5.2 [facility] Comment on above: Performed By: #### B MP, LIP, LIVP, CDP, HCG #### [facility] [address] [place] [address] Hand Compositor: Jennifer Freire MD Alkaline Phos 86 U/L Normal 35-104 [facility] Comment on above: Performed By: #### B MP, LIP, LIVP, CDP, HCG #### [facility] [address] [place] [address] Hand Compositor: Jennifer Freire MD ALT [Catalytic activity/Vol] 14 U/L Normal 5-33 [facility] Comment on above: Performed By: #### B MP, LIP, LIVP, CDP, HCG #### [facility] [address] [place] [address] Hand Compositor: Jennifer Freire MD AST [Catalytic activity/Vol] 18 U/L Normal <32 [facility] Comment on above: Performed By: #### B MP, LIP, LIVP, CDP, HCG #### [facility] [address] [place], [place] [phone] Hand Compositor: Jennifer Freire MD Bilirubin [Mass/Vol] 0.5 mg/dL Normal 0.3-1.2 [facility] Comment on above: Performed By: #### B MP, LIP, LIVP, CDP, HCG #### [facility] [address] [place], [place] [phone] Hand Compositor: Jennifer Freire MD Bilirubin, Indirect Can not be calculated Normal 0.0-1.0 [facility] Comment on above: Performed By: #### B MP, LIP, LIVP, CDP, HCG #### [facility] [address] [place], [place] [phone] Hand Compositor: Jennifer Freire MD Bilirubin.indirect [Mass/Vol] mg/dL Normal <0.3 [facility] Comment on above: Performed By: #### B MP, LIP, LIVP, CDP, HCG #### [facility] [address] [place], [place] [phone] Hand Compositor: Jennifer Freire MD Protein [Mass/Vol] 7.9 g/dL Normal 6.4-8.3 [facility] Comment on above: Performed By: #### B MP, LIP, LIVP, CDP, HCG #### [facility] [address] [place], [place] [phone] Hand Compositor: Jennifer Freire MD Urinalysis, Routineon 2022 Bilirubin, SemiQt,Ur Negative Normal NEG [facility] Comment on above: Performed By: #### U A #### [facility] [address] [place] [address] Hand Compositor: Jennifer Freire MD Blood, Urine Negative Normal NEG [facility] Comment on above: Performed By: #### U A #### [facility] [address] [place], [place] [phone] Hand Compositor: Jennifer Freire MD Clarity (U) Clear Normal CLEAR [facility] Comment on above: Performed By: #### U A #### [facility] [address] [place], [place] [phone] Hand Compositor: Jennifer Freire MD Color (U) Yellow Normal YEL [facility] Comment on above: Performed By: #### U A #### [facility] [address] [place] [address] Hand Compositor: Jennifer Freire MD Comment Normal [facility] Comment on above: Performed By: #### U A #### [facility] [address] [place], [place] [phone] Hand Compositor: Jennifer Freire MD Glucose Ql (U) Negative Normal NEG [facility] Comment on above: Performed By: #### U A #### [facility] [address] [place] [address] Hand Compositor: Jennifer Freire MD Ketones Ql (U) Negative Normal NEG [facility] Comment on above: Performed By: #### U A #### [facility] [address] [place] [phone] Hand Compositor: Jennifer Freire MD Leukocyte esterase Test strip Ql (U) Negative Normal NEG [facility] Comment on above: Performed By: #### U A #### [facility] [address] [place] [address] Hand Compositor: Jennifer Freire MD Nitrite,Ur Negative Normal NEG [facility] Comment on above: Performed By: #### U A #### [facility] [address] [place] [address] Hand Compositor: Jennifer Freire MD PH,Ur 8.0 Normal 5.0-8.0 [facility] Comment on above: Performed By: #### U A #### [facility] [address] [place] [phone] Hand Compositor: Jennifer Freire MD Protein Ql (U) Negative Normal NEG [facility] Comment on above: Performed By: #### U A #### [facility] [address] [place] [phone] Hand Compositor: Jennifer Freire MD Spec. Mcbrides,Ur 1.010 Normal 1.005-1.030 [facility] Comment on above: Performed By: #### U A #### [facility] [address] [place], [place] [phone] Hand Compositor: Jennifer Freire MD Urobilinogen,Ur Normal Normal 0.0-1.[address] [facility] Comment on above: Performed By: #### U A #### [facility] [address] [place] [address] Hand Compositor: Jennifer Freire MD Discharge Instructionson Discharge Instructions [id number] 120 [id number] #[id number] Normal [facility] ED Clinical Summaryon 2022 ED Clinical Summary [address] [address] ED Clinical Summary Person Information Name: LIVIA NOYOLA/[facility]_Kishore Age: 38 Years : 1985 Sex: Female Language: Honduran PCP: BETTIE MIRELES Marital Status: Visit Id: [...] 05/18/2023 00:57:00 ADDRESS: [address] [place] [id number] PHYS DOC NOTES: MEDICAL INFORMATION: Prescriptions Given: Medications to Continue with No Changes Other Medications alprazolam (alprazolam 0.25 mg Tab) budesonide-formotero l (Symbicort 80/4.5 inhalation aerosol with adapter) citalopram (citalopram 20 mg Tab) By Mouth every day. PATIENT EDUCATION INFORMATION: Instructions: Ovarian Cyst Follow up: With: Address: When: Ino Lelem[address] Herr [facility] [place] [id number] Business (1) In 3 days 05/21/2023 DIAGNOSIS: Bilateral ovarian cysts; Unspecified ovarian cyst, left side Normal [facility] ED Note-Physicianon 05-18-20 ED Note-Physician Basic [...] and Complexity of Problems Differential Diagnosis: [] [facility] Data External documents reviewed: N/A My EKG [...] of discharge with close follow-up with her REGISTERED SALES ASSISTANT at the 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 We discussed [...] Lele In 3 days 05/21/2023 EST [address] [place] [address]- [facility] (1) Additional Instructions: Patient Education Ovarian Cyst [...] (05/17/23 21:12 (more content not included)... Normal [facility] Comment on above: Result Comment: Elec [...] Follow these instructions at home: ? Take mwdm-ezi-davmuot and prescription medicines only as told by [...] Reviewed: 11/06/2020 Elsevier Patient Education ? 2022 [employer] Normal [facility] ED Patient Summaryon 023 ED Patient Summary [address] [address] Patient Discharge Instructions Person Information Name: LIVIA NOYOLA Age: 38 Years Arrival Date: 05/17/2023 20:20:39 Discharge Diagnosis: Bilateral ovarian cysts; Unspecified ovarian cyst, left side Primary Care Physician: BETTIE MIRELES Provider Information Primary Provider: Ritesh Heath DO Advanced Machine Pecan Gatherer:None The exam and treatment you received in the Emergency Department were for an urgent problem and are not intended as complete care. It is important that you follow up with a doctor, nurse practitioner, or physician?s electrician's assistant for ongoing care. If your symptoms [...] Follow-up Instructions: With: Address: When: Ino Royal [address] [place], [place] [id number] [facility] (1) In 3 days 05/21/2023 In the event that this physician does not participate in your insurance network, please consult with your insurance company to find a nearby participating provider. Patient Education Materials: Ovarian Cyst A MESSAGE TO ALL PATIENTS REGARDING OPIOIDS PRESCRIPTION OPIOIDS: WHAT YOU NEED TO KNOW Prescription opioids can be used to help relieve jmxfsxqr-mq-fkkfcm pain and are often prescribed following a [...] be struggling with addiction, tell your health healthcare liaison and ask for guidance or call [facility]?S [employer] Helpline at [phone]. (more content not included)... Normal [facility] US Pelvis Non-OB Completeon 05-18-2023 US Pelvis [...] CARMELINA Technical Comments Transabdominal Ultrasound Performed Normal [facility] Auto Diffon 05-17-2023 Basophils/100 WBC (Bld) 0.4 % Normal 0.0-2.0 F [facility] Comment on above: Order Comment: Order Added by Lis Expert. Performed By: #### 1 [id number], 9944124, 9474409, 6183305, 2675988, 50592536, 2474353 ####[facility] [address] [place] [address] Basophils/Leukocytes Auto (Bld) [Pure # fraction] 0.0 E9/L Normal 0.0-0.2 [facility] Comment on above: Order Comment: Order Added by Lis Expert. Performed By: #### 1 [id number], 3682056, 7982757, 5703612, 8545705, 01257895, 0959953 ####[facility] [address] [place] [address] Eosinophils/100 WBC (Bld) 0.2 % Normal 0.0-8.0 [facility] Comment on above: Order Comment: Order Added by Lis Expert. Performed By: #### 1 7591300, 5226659, 9392229, 9593084, 0990267, 42447560, 6003866 ####[facility] [address] [place] [address] Eosinophils/Leukocytes Auto (Bld) [Pure # fraction] 0.0 E9/L Normal 0.0-0.5 [facility] Comment on above: Order Comment: Order Added by Lis Expert. Performed By: #### 1 6952482, 9580047, 2131165, 1030209, 0823059, 06445123, 8707433 ####[facility] [address] [place] [address] Lymphocytes/100 WBC (Bld) 33.4 % Normal 14.0-50.0 [facility] Comment on above: Order Comment: Order Added by Discern Expert. Performed By: #### 1 [id number], 6559356, 8890594, 4433359, 5611447, 05486411, 5422385 ####[place] [address] [place] [address] Lymphocytes/Leukocytes Auto (Bld) [Pure # fraction] 2.8 E9/L Normal 1.0-4.0 [facility] Comment on above: Order Comment: Order Added by Discern Expert. Performed By: #### 1 9332785, 4344707, 1051295, 3037841, 3568585, 67717974, 3436695 ####[place] [address] [place] [address] Monocytes/100 WBC (Bld) 9.1 % Normal 4.0-14.0 [facility] Comment on above: Order Comment: Order Added by Lis Expert. Performed By: #### 1 9181094, 0748014, 1402433, 4443729, 1429647, 18271250, 8538735 ####[address] [address] Monocytes/Leukocytes Auto (Bld) [Pure # fraction] 0.8 E9/L Normal 0.2-1.0 [facility] Comment on above: Order Comment: Order Added by Lis Expert. Performed By: #### 1 4205953, 6160740, 9818983, 4072857, 9929984, 28336317, 5735177 ####[address] [address] Neutrophils/100 WBC (Bld) 56.9 % Normal 36.0-75.0 [facility] Comment on above: Order Comment: Order Added by Lis Expert. Performed By: #### 1 4139961, 3960246, 0620857, 4004290, 6052663, 48698946, 9498885 ####[place] [address] [place] [address] Neutrophils/Leukocytes Auto (Bld) [Pure # fraction] 4.8 E9/L Normal 2.0-7.5 [facility] Comment on above: Order Comment: Order Added by Discern Expert. Performed By: #### 1 4655714, 5448385, 6176140, 1910410, 2968496, 29508332, 5802237 ####[facility] [address] [place] [address] BMPon 05-17-2023 Creatinine [Mass/Vol] 0.8 mg/dL Normal 0.5-1.3 [facility] Comment on above: Performed By: #### 1 2394839, 7375824, 4801111, 0985953, 3919570, 35692945, 0611146 ####[facility] [address] [place] [address] Urea nitrogen [Mass/Vol] 5 mg/dL Normal 5-21 [facility] Comment on above: Performed By: #### 1 3975694, 6597892, 5198790, 9320409, 6547172, 07476375, 0786066 ####[facility] [address] [place] [address] Urea nitrogen/Creatinine [Mass ratio] 6 No Units Low 10-20 [facility] Comment on above: Performed By: #### 1 9218189, 4944660, 0961163, 7902589, 8148831, 66583158, 2730579 ####[facility] [address] [place] [address] Anion gap [Moles/Vol] 11 mmol/L Normal 6-16 [facility] Comment on above: Performed By: #### 1 5743928, 8950239, 1750355, 5635947, 5554342, 82876163, 0905236 ####[facility] [address] [place] [address] Calcium [Mass/Vol] 9.3 mg/dL Normal 8.9-11.1 [facility] Comment on above: Performed By: #### 1 2763925, 0516336, 1547186, 0121295, 8516190, 27033139, 5702824 ####[facility] [address] [place] [address] Chloride [Moles/Vol] 109 mmol/L Normal 101-111 [facility] Comment on above: Performed By: #### 1 7358223, 3676308, 5830526, 0118320, 8211530, 30349758, 0700345 ####[facility] [address] [place] [address] CO2 [Moles/Vol] 23 mmol/L Normal 21-31 [facility] Comment on above: Performed By: #### 1 3751524, 4866598, 7769057, 1645557, 8431288, 66224271, 2315157 ####[facility] [address] [place] [address] Glucose [Mass/Vol] 104 mg/dL Normal 55-199 [facility] Comment on above: Result Comment: If t his glucose result represents a fasting glucose, interpretation should refer to the following reference range: 55-99 mg/dL Performed By: #### 1 9638067, 9138316, 9892490, 1555728, 4111848, 33512463, 2109700 ####[facility] [address] [place] [address] Potassium [Moles/Vol] 4.1 mmol/L Normal 3.5-5.3 [facility] Comment on above: Performed By: #### 1 2588683, 8328601, 7955608, 4480435, 6843916, 55971381, 3969078 ####[facility] [address] [place] [address] Sodium [Moles/Vol] 139 mmol/L Normal 135-145 [facility] Comment on above: Performed By: #### 1 8052666, 5719581, 4250428, 8390698, 2752911, 17792270, 6989717 ####[facility] [address] [place] [address] CBC w/ Auto Diffon 3 Erythrocyte distribution width (RBC) [Ratio] 18.7 % High 10.9-14.2 [facility] Comment on above: Performed By: #### 1 2799052, 8157596, 1076124, 9142057, 6606219, 96448494, 3567905 #### [facility] [address] [place] [address] Hematocrit (Bld) [Volume fraction] 37.4 % Normal 34.0-46.0 [facility] Comment on above: Performed By: #### 1 1537342, 7011936, 1760688, 8031332, 6616938, 70669194, 0034170 #### [facility] [address] [place] [address] Hemoglobin (Bld) [Mass/Vol] 11.7 g/dL Low 12.0-16.0 [facility] Comment on above: Performed By: #### 1 0289509, 3979169, 2990159, 4408249, 6670233, 64051226, 1166097 #### [facility] [address] [place], [place] [id number] MCH (RBC) [Entitic mass] 24.4 pg Low 27.0-34.0 [facility] Comment on above: Performed By: #### 1 6084518, 9655317, 7706646, 4317509, 5376015, 88431033, 0011654 #### [facility] [address] [place] [address] MCHC (RBC) [Mass/Vol] 31.2 g/dL Low 31.4-36.0 [facility] Comment on above: Performed By: #### 1 1191903, 8742992, 7894051, 0245997, 3486051, 62582551, 8315433 #### [facility] [address] [place] [address] MCV (RBC) [Entitic vol] 78.2 fL Low 80.0-100.0 [facility] Comment on above: Performed By: #### 1 8034811, 4864733, 1385999, 8793845, 1593892, 65189762, 2069528 #### [facility] [address] [place] [address] Platelet mean volume (Bld) [Entitic vol] 7.8 fL Normal 6.4-10.8 [facility] Comment on above: Performed By: #### 1 5329736, 7585727, 7726070, 3899153, 7406229, 10291571, 2206396 #### [facility] [address] [place] [address] Platelets (Bld) [#/Vol] 469.0 E9/L Normal 150.0-500.0 [facility] Comment on above: Performed By: #### 1 5611589, 5228319, 8548881, 3426554, 9403543, 78494823, 8646920 #### [facility] [address] [place] [address] RBC (Bld) [#/Vol] 4.8 E12/L Normal 4.3-5.9 [facility] Comment on above: Performed By: #### 1 3311922, 3623255, 1915740, 5555041, 6594926, 95760578, 4694246 #### [facility] [address] [place] [address] WBC corrected for nucl RBC Auto (Bld) [#/Vol] 8.5 E9/L Normal 4.0-11.0 [facility] Comment on above: Performed By: #### 1 1836316, 8585167, 5511315, 1891337, 0852006, 21620975, 2504489 #### [facility] [address] [place] [address] Consent for Treatmenton Consent for Treatment [id number] #[id number] Normal [facility] ED Note-Nursingon 05-17-2023 ED Note-Nursing Pt being transported to US at this time Normal [facility] Hep Func Panelon 05-17-2023 Albumin [Mass/Vol] 4.2 g/dL Normal 3.3-5.0 [facility] Comment on above: Performed By: #### 1 0537297, 5863312, 7255218, 5636874, 0657440, 82168878, 2201001 ####[address] [place] [address] Albumin/Globulin (S) [Mass conc ratio] 1.2 Normal 1.1-2.2 [facility] Comment on above: Performed By: #### 1 8849234, 2093338, 6847274, 4511771, 1671388, 68001511, 5190945 ####[address] [place] [address] ALP [Catalytic activity/Vol] 58 Int._Unit/L Normal 21-98 [facility] Comment on above: Performed By: #### 1 4390751, 3878144, 5375947, 7740019, 2948502, 78491790, 1576439 ####[address] [address] ALT No additional P-5'-P [Catalytic activity/Vol] 14 Int._Unit/L Normal 6-46 [facility] Comment on above: Performed By: #### 1 2536429, 4226061, 6918732, 2948329, 9743382, 02314912, 7923779 ####[address] [address] AST [Catalytic activity/Vol] 21 Int._Unit/L Normal 5-43 [facility] Comment on above: Performed By: #### 1 6889734, 5498555, 4619893, 1961215, 7936717, 42463404, 0645227 ####[address] [place] [address] Bilirubin [Mass/Vol] 0.6 mg/dL Normal 0.0-1.1 [facility] Comment on above: Performed By: #### 1 7761792, 6598298, 9804169, 7244300, 2599540, 82425809, 8682243 ####[facility] [address] [place] [address] Bilirubin.direct [Mass/Vol] 0.1 mg/dL Normal 0.1-0.4 [facility] Comment on above: Performed By: #### 1 0492679, 0716168, 3574566, 7632358, 9000786, 66999644, 8548340 ####[facility] [address] [place] [address] Bilirubin.indirect [Mass or moles/Vol] 0.5 mg/dL Normal 0.1-0.9 [facility] Comment on above: Performed By: #### 1 3189219, 5562009, 0485053, 6294919, 2037326, 03955271, 1246928 ####[facility] [address] [place] [address] Globulin (S) [Mass/Vol] 3.6 g/dL Normal 1.4-4.0 [facility] Comment on above: Performed By: #### 1 2615970, 3263309, 1284627, 7382840, 2645707, 88221414, 9005681 ####[facility] [address] [place] [address] Protein [Mass/Vol] 7.8 g/dL Normal 6.0-7.8 [facility] Comment on above: Performed By: #### 1 6790215, 7875235, 8925769, 2097363, 3846252, 78306332, 7994246 ####[address] [place] [address] Lipase Levelon 05-17-2023 Lipase [Catalytic activity/Vol] 57 U/L Normal 13-58 [facility] Comment on above: Performed By: #### 1 6700739, 9875628, 7968857, 5093091, 7492341, 94410812, 4002808 #### [facility] [address] [place] [address] Morphon 05-17-2023 Anisocytosis Ql (Bld) Present Normal [facility] Comment on above: Order Comment: Order Added by Discern Expert. Performed By: #### 1 7874483, 5755661, 7109989, 1400143, 6649409, 53224086, 1472694 #### [facility] [address] [place] [address] Hypochromia Auto Ql (Bld) Present Normal [facility] Comment on above: Order Comment: Order Added by Discern Expert. Performed By: #### 1 9855996, 2280793, 0264742, 7630759, 0274600, 22588905, 7295846 #### [facility] [address] [place] [address] Microcytes Ql (Bld) Present [facility] Comment on above: Order Comment: Order Added by Discern Expert. Performed By: #### 1 6355938, 0624254, 2290581, 5250265, 8806155, 23896242, 7432757 #### [facility] [address] [place] [address] Morphology Edson (Bld) [Interp] See Morphology Normal [facility] Comment on above: Order Comment: Order Added by Discern Expert. Performed By: #### 1 2296511, 6242294, 3073750, 2483014, 7513230, 64574690, 2015994 #### [facility] [address] [place] [address] Ovalocytes LM Ql (Bld) Present Normal [facility] Comment on above: Order Comment: Order Added by Discern Expert. Performed By: #### 1 4707867, 6790099, 2682489, 7788568, 3057127, 62740238, 3239489 #### [facility] [address] [place] [address] U BetaHcg Qualon 05-17-2023 HCG.beta subunit (U) [Moles/Vol] Negative Normal [facility] Comment on above: Performed By: #### 1 3982034, 60601245 ####[facility] [address] [place] [address] UA With Cult Reflexon 2022 Bacteria LM Ql (Urine sed) TRACE Normal Trace [facility] Comment on above: Performed By: #### 1 7011216, 99137408 ####[facility] [address] [place] [address] Bilirubin Ql (U) Negative Normal Negative [facility] Comment on above: Performed By: #### 1 6471808, 92794561 ####[address] [address] Clarity (U) CLEAR Normal Clear [facility] Comment on above: Performed By: #### 1 2990212, 01572827 ####[address] [address] Color (U) YELLOW Normal Yellow [facility] Comment on above: Performed By: #### 1 3815809, 29582997 ####[address] [address] Epithelial cells.squamous LM.HPF (Urine sed) [#/Area] 3-4 Normal 0-2 [facility] Comment on above: Performed By: #### 1 1880336, 97791067 ####[place] Glucose Test strip (U) [Mass/Vol] Negative Normal Negative [facility] Comment on above: Performed By: #### 1 7897742, 62551083 ####[address] [address] Hemoglobin Ql (U) Negative Normal Negative [facility] Comment on above: Performed By: #### 1 1653422, 64103999 ####[address] [address] Ketones (U) [Mass/Vol] TRACE Invalid Interpretation Code Negative [facility] Comment on above: Performed By: #### 1 0790970, 66960421 ####[address] [address] [place].plasma/[place]. RBC (Bld) [Mass ratio] 0-3 Normal 0-3 [facility] Comment on above: Performed By: #### 1 3032648, 56840120 ####[address] [address] Mucus Ql (Urine sed) 2+ Normal [facility] Comment on above: Performed By: #### 1 2741003, 29944775 ####[address] [address] Nitrite Ql (U) Negative Normal Negative [facility] Comment on above: Performed By: #### 1 8788484, 80919072 ####[address] [address] pH (U) 6.0 [pH] Invalid Interpretation Code 5.0-9.0 [facility] Comment on above: Performed By: #### 1 0073811, 16023706 ####[address] [address] Protein (U) [Mass/Vol] Negative Normal Negative [facility] Comment on above: Performed By: #### 1 5637330, 54456277 ####[place] Specific gravity (U) [Rel density] >=1.030 Invalid Interpretation Code 1.005-1.030 [facility] Comment on above: Performed By: #### 1 3055594, 12219828 ####[address] [address] Type of Urine collection method Clean Catch Normal [facility] Comment on above: Performed By: #### 1 4810658, 20774948 ####[address] [address] Urobilinogen Qn (U) 2.0 {Ivone'U}/dL Abnormal 0.0-1.0 [facility] Comment on above: Performed By: #### 1 7442574, 50315447 ####[address] [address] WBC Auto Ql (U) Negative Normal Negative [facility] Comment on above: Performed By: #### 1 7368450, 55432901 ####[address] [place] [address] WBC LM.HPF (Urine sed) [#/Area] 0-5 Normal 0-5 [facility] Comment on above: Performed By: #### 1 0103013, 91283325 ####[facility] [address] [place] [address] eGFRon 05-17-2023 GFR/1.73 sq M.predicted among non-blacks MDRD (S/P/Bld) [Vol rate/Area] 98 mL/min/1.73 m2 Normal >=59 [facility] Comment on above: Order Comment: Order added by Discern Expert. Result Comment: Home Agent franklin kidney disease could be indicated at eGFR's of less than 60 mL/min/1.73m2. Kidney failure is indicated at less than 15 mL/min/1.73m2. Performed By: #### 1 7428819, 7342897, 6157553, 1224199, 3907951, 16098387, 3655627 ####[facility] [address] [place] [address] Alanine aminotransferase [En zymatic activity/volume] in Serum or PlasmaOrdered By: Elier Jackson on 04-30-2023 ALT [Catalytic activity/Vol] 15 U/L Normal 7-52 [facility] Comment on above: Performed By: #### H CGQNT #### [facility] [address] [place] [address] [place] Albumin [Mass/volume] in Ser um or Plasma by Bromocresol green (BCG) dye binding methoOrdered By: Elier Jackson on 04-30-2023 Albumin BCG dye [Mass/Vol] 4.3 g/dL 3.5-5.7 [facility] Alkaline phosphatase [Enzyma tic activity/volume] in Serum or PlasmaOrdered By: Elier Jackson on 04-30-2023 ALP [Catalytic activity/Vol] 68 U/L Normal 34-104 [facility] Comment on above: Performed By: #### H CGQNT #### [facility] [address] [place] [id number] [place] Aspartate aminotransferase [ Enzymatic activity/volume] in Serum or PlasmaOrdered By: Elier Velásquezpa on 04-30-2023 AST [Catalytic activity/Vol] 17 U/L Normal 13-39 [facility] Comment on above: Performed By: #### H CGQNT #### [address] Automated basophil %Ordered By: Elier Manuel on 04-30-2023 Basophils/100 WBC (Bld) 1.3 % Normal . [facility] Comment on above: Performed By: #### H CGQNT #### [address] Automated basophil countOrde red By: Elier Jackson on 04-30-2023 Basophils (Bld) [#/Vol] 0.0 10*3/uL Normal 0.0-0.2 [facility] Comment on above: Result Comment: PERF ORMED BY: [place] [address] PATHOLOGIST CLEAN ROOM OPERATOR FARNAZ ZULETA M.D. Performed By: #### H CGQNT #### [address] Automated blood monocyte cou ntOrdered By: Elier Jackson on 04-30-2023 Monocytes (Bld) [#/Vol] 0.3 10*3/uL Normal 0.0-0.8 [facility] Comment on above: Performed By: #### H CGQNT #### [address] Automated eosinophil %Ordere d By: Elier Jackson on 04-30-2023 Eosinophils/100 WBC (Bld) 0.6 % Normal . [facility] Comment on above: Performed By: #### H CGQNT #### [address] Automated eosinophil countOr dered By: Elier Jackson on 04-30-2023 Eosinophils (Bld) [#/Vol] 0.0 10*3/uL Normal 0.0-0.45 [facility] Comment on above: Performed By: #### H CGQNT #### [facility] [address] Automated erythrocytes count in urine sediment (number/area)Ordered By: Elier Velásquezarleen on 04-30-2023 RBC Auto (Urine sed) [#/Area] 5-9 [HPF] 0-4 [facility] Automated leukocytes count i n urine sediment (number/area)Ordered By: Elier Velásquezarleen on 04-30-2023 WBC Auto (Urine sed) [#/Area] 0-1 [HPF] 0-4 [facility] Automated monocyte %Ordered By: Elier Velásquezarleen on 04-30-2023 Monocytes/100 WBC (Bld) 7.0 % Normal . [facility] Comment on above: Performed By: #### H CGQNT #### [address] Automated neutrophil %Ordere d By: Elier Velásquezarleen on 04-30-2023 Neutrophils/100 WBC (Bld) 46.9 % Normal . [facility] Comment on above: Performed By: #### H CGQNT #### [address] Automated urine color determ inationOrdered By: Elier Manuel on 04-30-2023 Color (U) Yellow Normal Yellow [facility] Comment on above: Order Comment: Name Collection Type:: Clean-Voided Midstream Performed By: #### U HCG, ADDONUAPLUS #### [address] Basic Metabolic Panelon 04-13 Creatinine Clr Calc Pharmacy 107.67 Normal [facility] Comment on above: Performed By: #### H CGQNT #### [address] GFR/1.73 sq M.predicted MDRD (S/P/Bld) [Vol rate/Area] mL/min/{1.73_m2} Normal [facility] Comment on above: Performed By: #### H CGQNT #### [address] Bilirubin Test strip Ql (U)O rdered By: Elier Velásquezarleen on 04-30-2023 Bilirubin Ql (U) Negative Negative [facility] Bilirubin.direct [Mass/volum e] in Serum or PlasmaOrdered By: Elier Manuel on 04-30-2023 Bilirubin.direct [Mass/Vol] 0.10 mg/dL 0.03-0.18 [facility] Bilirubin.total [Mass/volume ] in Serum or PlasmaOrdered By: Elier Jackson on 04-30-2023 Bilirubin [Mass/Vol] 0.4 mg/dL Normal 0.3-1.0 [facility] Comment on above: Performed By: #### H CGQNT #### [facility] [address] [place] [address] Calcium [Mass/volume] in Ser um or PlasmaOrdered By: Elier Jackson on 04-30-2023 Calcium [Mass/Vol] 9.2 mg/dL Normal 8.6-10.3 [facility] Comment on above: Performed By: #### H CGQNT #### [facility] [address] [place] [address] [place] Carbon dioxide, total [Moles /volume] in Serum or PlasmaOrdered By: Elier Jackson on 04-30-2023 CO2 [Moles/Vol] 20.1 mmol/L Low 21.0-31.0 [facility] Comment on above: Performed By: #### H CGQNT #### [facility] [address] [place] [address] [place] Chloride [Moles/volume] in S binu or PlasmaOrdered By: Elier Jackson on 04-30-2023 Chloride [Moles/Vol] 109 mmol/L High 98-107 [facility] Comment on above: Performed By: #### H CGQNT #### [facility] [address] [place] [address] [place] Complete Blood Count Auto Di ffon 04-30-2023 Mean Corpuscular HGB Conc 34.7 g/dL Normal 32.0-35.0 [facility] Comment on above: Performed By: #### H CGQNT #### [place] [address] [place] Monocytes/100 WBC (Bld) 16.58 % Normal 0.00-20.00 [facility] Comment on above: Performed By: #### H CGQNT #### [address] NRBC% 0.1 /100{WBC} Normal 0-0.5 [facility] Comment on above: Performed By: #### H CGQNT #### [address] Creatinine [Mass/volume] in Serum or PlasmaOrdered By: Elier Jackson on 04-30-2023 Creatinine [Mass/Vol] 0.65 mg/dL Normal 0.60-1.20 [facility] Comment on above: Performed By: #### H CGQNT #### [place] [address] [place] Dipstick and Microscopicon 1 06-30-2022 Appearance (U) Clear Normal Clear [facility] Comment on above: Order Comment: Name Collection Type:: Clean-Voided Midstream Performed By: #### U HCG, ADDONUAPLUS #### [place] [address] [place] Bacteria,Urine None Seen Normal None Seen [facility] Comment on above: Order Comment: Name Collection Type:: Clean-Voided Midstream Performed By: #### U HCG, ADDONUAPLUS #### [place] [address] [place] Bilirubin,Urine Negative Normal Negative [facility] Comment on above: Order Comment: Name Collection Type:: Clean-Voided Midstream Performed By: #### U HCG, ADDONUAPLUS #### [place] [address] [place] Glucose Ql (U) Normal Normal Normal [facility] Comment on above: Order Comment: Name Collection Type:: Clean-Voided Midstream Performed By: #### U HCG, ADDONUAPLUS #### [place] [address] [place] Hyaline Casts,Urine 0-8 Normal 0-8 [facility] Comment on above: Order Comment: Name Collection Type:: Clean-Voided Midstream Performed By: #### U HCG, ADDONUAPLUS #### [facility] [address] [place], [place] [address] [place] Ketones Ql (U) Negative Normal Negative [facility] Comment on above: Order Comment: Name Collection Type:: Clean-Voided Midstream Performed By: #### U HCG, ADDONUAPLUS #### [place] [id number] [facility] Leukocyte esterase Test strip Ql (U) Negative Normal Negative [facility] Comment on above: Order Comment: Name Collection Type:: Clean-Voided Midstream Performed By: #### U HCG, ADDONUAPLUS #### [place] [address] [place] Nitrite,Urine Negative Normal Negative [facility] Comment on above: Order Comment: Name Collection Type:: Clean-Voided Midstream Performed By: #### U HCG, ADDONUAPLUS #### [place] [address] [place] Occult Blood,Urine 2+ High Negative [facility] Comment on above: Order Comment: Name Collection Type:: Clean-Voided Midstream Performed By: #### U HCG, ADDONUAPLUS #### [place] [address] [place] Protein,Urine Negative Normal Negative [facility] Comment on above: Order Comment: Name Collection Type:: Clean-Voided Midstream Performed By: #### U HCG, ADDONUAPLUS #### [place] [address] [place] RBC,Urine 5-9 High 0-4 [facility] Comment on above: Order Comment: Name Collection Type:: Clean-Voided Midstream Performed By: #### U HCG, ADDONUAPLUS #### [place] [id number] [place] Specificy Mcbrides,Urine 1.018 Normal 1.001-1.030 [facility] Comment on above: Order Comment: Name Collection Type:: Clean-Voided Midstream Performed By: #### U HCG, ADDONUAPLUS #### [address] Squamous Epithelial Cell,Urine 0-1 Normal 0-2 [facility] Comment on above: Order Comment: Name Collection Type:: Clean-Voided Midstream Performed By: #### U HCG, ADDONUAPLUS #### [address] Urobilinogen,Urine Normal Normal Normal [facility] Comment on above: Order Comment: Name Collection Type:: Clean-Voided Midstream Performed By: #### U HCG, ADDONUAPLUS #### [address] WBC LM.HPF (Urine sed) [#/Area] 0 /[HPF] Normal 0-4 [facility] Comment on above: Order Comment: Name Collection Type:: Clean-Voided Midstream Performed By: #### U HCG, ADDONUAPLUS #### [address] Erythrocyte distribution wid th [Ratio] by Automated countOrdered By: Elier Jackson on 04-30-2023 Erythrocyte distribution width (RBC) [Ratio] 16.8 % High 11.9-15.3 [facility] Comment on above: Performed By: #### H CGQNT #### [address] Erythrocytes [#/volume] in B lood by Automated countOrdered By: Elier Jackson on 04-30-2023 RBC (Bld) [#/Vol] 3.68 10*6/uL Normal 3.60-5.00 [facility] Comment on above: Performed By: #### H CGQNT #### [address] Glucose [Mass/volume] in Ser um or PlasmaOrdered By: Elier Jackson on 04-30-2023 Glucose [Mass/Vol] 100 mg/dL Normal 70-100 [facility] Comment on above: ADA recommended refe rence rangeRandom Glucose Reference Range is dependent on time and content of last meal. Glucose of more than 200 mg/dL in a nonstressed, ambulatory subject supports the diagnosis of Diabetes Mellitus. Result Comment: [place] om Glucose Reference Range is dependent on time and content of last meal. Glucose of more than 200 mg/dL in a nonstressed, ambulatory subject supports the diagnosis of Diabetes Mellitus. ADA recommended reference range Performed By: #### H CGQNT #### [address] HCG ( test) IA.rapi d Ql (U)Ordered By: Elier Jackson on 04-30-2023 HCG ( test) Ql (U) Negative [facility] HCG,Urineon 04-30-2023 Beta HCG ( test) Ql (U) Negative Normal [facility] Comment on above: Order Comment: Name Collection Type:: Clean-Voided Midstream Result Comment: PERF ORMED BY: [place] [address] PATHOLOGIST CLEAN ROOM OPERATOR FARNAZ ZULETA M.D. Performed By: #### U HCG, ADDONUAPLUS #### [address] Hematocrit [Volume Fraction] of Blood by Automated countOrdered By: Elier Jackson on 04-30-2023 Hematocrit (Bld) [Volume fraction] 32.3 % Low 34.0-46.4 [facility] Comment on above: Performed By: #### H CGQNT #### [address] Hemoglobin [Mass/volume] in BloodOrdered By: Elier Jackson on 04-30-2023 Hemoglobin (Bld) [Mass/Vol] 11.2 g/dL Low 11.8-15.4 [facility] Comment on above: Performed By: #### H CGQNT #### [address] Hepatic Panelon 04-30-2023 Albumin [Mass/Vol] 4.3 g/dL Normal 3.5-5.7 [facility] Comment on above: Performed By: #### H CGQNT #### [facility] [address] Bilirubin,Indirect 0.3 mg/dL Normal [facility] Comment on above: Performed By: #### H CGQNT #### [facility] [address] Bilirubin.indirect [Mass/Vol] 0.10 mg/dL Normal 0.03-0.18 [facility] Comment on above: Performed By: #### H CGQNT #### [facility] [address] Ketones Auto test strip (U) [Mass/Vol]Ordered By: Elier Jackson on 04-30-2023 Ketones (U) [Mass/Vol] Negative Negative [facility] - UrinalysisOrder ed By: Elier Jackson on 04-30-2023 Hyaline casts LM Ql (Urine sed) 0-8 [LPF] 0-8 [facility] Leukocytes [#/volume] correc flo for nucleated erythrocytes in Blood by Automated counOrdered By: Elier Jackson on 04-30-2023 WBC corrected for nucl RBC Auto (Bld) [#/Vol] 3.6 10*3/uL 3.8-11.6 [facility] Leukocytes [#/volume] in Blo od by Automated countOrdered By: Elier Jackson on 04-30-2023 WBC (Bld) [#/Vol] 3.6 10*3/uL Low 3.8-11.6 [facility] Comment on above: Performed By: #### H CGQNT #### [facility] [address] [place] [address] [place] Lipase [Enzymatic activity/v olume] in Serum or PlasmaOrdered By: Elier Jackson on 04-30-2023 Lipase [Catalytic activity/Vol] 31.0 U/L Normal 11.0-82.0 [facility] Comment on above: Result Comment: PERF ORMED BY: [address] [place] [address] PATHOLOGIST CLEAN ROOM OPERATOR FARNAZ ZULETA M.D. Performed By: #### H CGQNT #### [address] Lymphocytes [#/volume] in Bl ood by Automated countOrdered By: Elier Jackson on 04-30-2023 Lymphocytes (Bld) [#/Vol] 1.6 10*3/uL Normal 1.00-4.8 [facility] Comment on above: Performed By: #### H CGQNT #### [address] Lymphocytes/100 leukocytes i n Blood by Automated countOrdered By: Elier Jackson on 04-30-2023 Lymphocytes/100 WBC (Bld) 44.2 % Normal . [facility] Comment on above: Performed By: #### H CGQNT #### [address] MCH [Entitic mass] by Automa flo countOrdered By: Elier Jackson on 04-30-2023 MCH (RBC) [Entitic mass] 30.4 pg Normal 24.7-34.3 [facility] Comment on above: Performed By: #### H CGQNT #### [address] MCHC Auto (RBC) [Mass/Vol]Or dered By: Elier Jackson on 04-30-2023 MCHC (RBC) [Mass/Vol] 34.7 g/dL 32.0-35.0 [facility] MCV [Entitic volume] by Auto mated countOrdered By: Elier Jackson on 04-30-2023 MCV (RBC) [Entitic vol] 87.6 fL Normal 80-100 [facility] Comment on above: Performed By: #### H CGQNT #### [address] Monocyte distribution width [Entitic volume] in Blood by AutomatedOrdered By: Elier Jackson on 04-30-2023 Monocyte distribution width Auto (Bld) [Entitic vol] 16.58 % 0.00-20.00 [facility] Neutrophils [#/volume] in Bl ood by Automated countOrdered By: Elier Jackson on 04-30-2023 Neutrophils (Bld) [#/Vol] 1.7 10*3/uL Low 1.8-7.7 [facility] Comment on above: Performed By: #### H CGQNT #### [facility] [address] Nitrite Test strip Ql (U)Ord ered By: Elier Jackson on 04-30-2023 Nitrite Ql (U) Negative Negative [facility] No Panel InformationOrdered By: Elier Jackson on 04-30-2023 Estimated GFR (CKD-EPI) > 60.0 mL/Min [facility] Creatinine Clearance (Chem 107.67 [facility] Nucleated erythrocytes [Pres ence] in Blood by Automated countOrdered By: Elier Jackson on 04-30-2023 Nucleated RBC Auto Ql (Bld) 0.1 /100{WBC} 0-0.5 [facility] Platelet mean volume [Entiti c volume] in Blood by Automated countOrdered By: Elier Jackson on 04-30-2023 Platelet mean volume (Bld) [Entitic vol] 8.0 fL Normal 6.3-10.7 [facility] Comment on above: Performed By: #### H CGQNT #### [facility] [address] [place] [address] [place] Platelets [#/volume] in Bloo d by Automated countOrdered By: Elier Jackson on 04-30-2023 Platelets (Bld) [#/Vol] 415 10*3/uL Normal 150-450 [facility] Comment on above: Performed By: #### H CGQNT #### [facility] [address] [place] [address] [place] Potassium [Moles/volume] in Serum or PlasmaOrdered By: Elier Jackson on 04-30-2023 Potassium [Moles/Vol] 3.8 mmol/L Normal 3.5-5.1 [facility] Comment on above: Performed By: #### H CGQNT #### [facility] [address] [place] [address] Protein Auto test strip (U) [Mass/Vol]Ordered By: Elier Jackson on 04-30-2023 Protein (U) [Mass/Vol] Negative Negative [facility] Protein [Mass/volume] in Ser um or PlasmaOrdered By: Elier Jackson on 04-30-2023 Protein [Mass/Vol] 7.6 g/dL Normal 6.4-8.9 [facility] Comment on above: Performed By: #### H CGQNT #### [address] Serum globulin measurement b y calculation (mass/volume)Ordered By: Elier Jackson on 04-30-2023 Globulin (S) [Mass/Vol] 3.3 g/dL Normal [facility] Comment on above: Performed By: #### H CGQNT #### [address] Serum or plasma albumin/glob ulin mass ratioOrdered By: Elier Jackson on 04-30-2023 Albumin/Globulin [Mass ratio] 1.3 {ratio} Normal [facility] Comment on above: Performed By: #### H CGQNT #### [address] Serum or plasma anion gap de terminationOrdered By: Elier Jackson on 04-30-2023 Anion gap [Moles/Vol] 14.7 mmol/L Normal 6.0-15.0 [facility] Comment on above: Performed By: #### H CGQNT #### [address] Serum or plasma non-glucuron idated bilirubin measurement (mass/volume)Ordered By: Elire Jackson on 04-30-2023 Bilirubin.indirect [Mass/Vol] 0.3 mg/dL [facility] Sodium [Moles/volume] in Ser um or PlasmaOrdered By: Elier Jackson on 04-30-2023 Sodium [Moles/Vol] 140 mmol/L Normal 136-145 [facility] Comment on above: Performed By: #### H CGQNT #### [facility] [address] [place] [address] [facility] Specific gravity Auto test s trip (U) [Rel density]Ordered By: Elier Jackson on 04-30-2023 Specific gravity (U) [Rel density] 1.018 1.001-1.030 [facility] Squamous epithelial cells de tection in urine sediment by light microscopyOrdered By: Elier Jackson on 04-30-2023 Epithelial cells.squamous LM Ql (Urine sed) 0-1 [HPF] 0-2 [facility] US pelvic completeon 023 US pelvic complete [facility] Main [place] [address] [place], [place] [id number] Ultrasound Report Signed Patient: Livia Noyola MR#: [id number] 757 : 1985 Acct:[id number] Age/Sex: 38 / F ADM Date: 04/30/23 Loc: ER Room: Type: [facility] ER Attending Dr: Ordering Provider: Elier Jackson DO Date of Service: 04/30/23 US/US pelvic complete: L pelvic pain ([id number]) US/US transvaginal: LT PELVIC PAIN Copies to: [...] Betancur Jr., D.O.04/30/2023 6:24 PM Dictation Location: [address]: Brooke Hodge Transcribed By: PWS 04/30/231823 Dictated By: Dennis Betancur Jr, DO 04/30/231820 Signed By: 04/30/231823 Normal [facility] Urea nitrogen [Mass/volume] in Serum or PlasmaOrdered By: Elier Jackson on 04-30-2023 Urea nitrogen [Mass/Vol] 6 mg/dL Low 7-25 [facility] Comment on above: Performed By: #### H CGQNT #### [facility] [address] Urine bacteria detection by automated methodOrdered By: Elier Jackson on 04-30-2023 Bacteria Auto Ql (U) None seen None Seen [facility] Urine clarity by refractomet ry automatedOrdered By: Elier Jackson on 04-30-2023 Clarity Refractometry automated (U) Clear Clear [facility] Urine glucose measurement by automated test strip (mass/volume)Ordered By: Elier Jackson on 04-30-2023 Glucose Auto test strip (U) [Mass/Vol] Normal mg/dL Normal [facility] Urine hemoglobin detection b y automated test stripOrdered By: Elier Jackson on 04-30-2023 Hemoglobin Auto test strip Ql (U) 2+ Negative [facility] Urine leukocyte esterase det ection by automated test stripOrdered By: Elier Jackson on 04-30-2023 Leukocyte esterase Auto test strip Ql (U) Negative Negative [facility] Urine pH measurement by auto mated test stripOrdered By: Elier Jackson on 04-30-2023 pH (U) 5.5 [pH] Normal 5.0-9.0 [facility] Comment on above: Order Comment: Name Collection Type:: Clean-Voided Midstream Performed By: #### U HCG, ADDONUAPLUS #### [facility] [address] [place] [address] [place] Urobilinogen Auto test strip (U) [Mass/Vol]Ordered By: Elier Jackson on 04-30-2023 Urobilinogen (U) [Mass/Vol] Normal mg/dL Normal [facility] Auto Diffon 11-12-2023 Basophils/100 WBC (Bld) 0.3 % Normal 0.0-2.0 [facility] Comment on above: Order Comment: Order Added by Discern Expert. Performed By: #### 2 833042, 8678062, 6010373, 58295594, 22698583 #### [facility] [address] [place] [address] Basophils/Leukocytes Auto (Bld) [Pure # fraction] 0.0 E9/L Normal 0.0-0.2 [facility] Comment on above: Order Comment: Order Added by Discern Expert. Performed By: #### 2 912336, 5538009, 0341557, 11266903, 31752888 #### [facility] [address] [place] [address]148 Eosinophils/100 WBC (Bld) 0.9 % Normal 0.0-8.0 [facility] Comment on above: Order Comment: Order Added by Lis Expert. Performed By: #### 2 092033, 2369107, 7911524, 15980414, 76896828 #### [facility] [address] [place] [address] Eosinophils/Leukocytes Auto (Bld) [Pure # fraction] 0.0 E9/L Normal 0.0-0.5 [facility] Comment on above: Order Comment: Order Added by Lis Expert. Performed By: #### 2 027427, 9316281, 0787990, 31632698, 16264558 #### [facility] [address] [place] [address]5971 Lymphocytes/100 WBC (Bld) 49.9 % Normal 14.0-50.0 [facility] Comment on above: Order Comment: Order Added by Lis Expert. Performed By: #### 2 350016, 1755594, 9864529, 86492827, 91376881 #### [facility] [address] [place] [address] Lymphocytes/Leukocytes Auto (Bld) [Pure # fraction] 2.3 E9/L Normal 1.0-4.0 [facility] Comment on above: Order Comment: Order Added by Discern Expert. Performed By: #### 2 004166, 7486740, 4257527, 61925094, 81016968 #### [facility] [address] [place] [address] Monocytes/100 WBC (Bld) 7.1 % Normal 4.0-14.0 [facility] Comment on above: Order Comment: Order Added by Discern Expert. Performed By: #### 2 552582, 6191048, 2465233, 35454710, 65197452 #### [facility] [address] [place] [address] 61881 Monocytes/Leukocytes Auto (Bld) [Pure # fraction] 0.3 E9/L Normal 0.2-1.0 [facility] Comment on above: Order Comment: Order Added by Discern Expert. Performed By: #### 2 235917, 0050332, 1122003, 85474843, 19434987 #### [facility] [address] [place] [address] 10497 Neutrophils/100 WBC (Bld) 41.8 % Normal 36.0-75.0 [facility] Comment on above: Order Comment: Order Added by Discern Expert. Performed By: #### 2 733507, 9841391, 7146181, 07497118, 10337010 #### [facility] [address] [place] [address] 17817 Neutrophils/Leukocytes Auto (Bld) [Pure # fraction] 2.0 E9/L Normal 2.0-7.5 [facility] Comment on above: Order Comment: Order Added by Discern Expert. Performed By: #### 2 331771, 5570167, 9273612, 44084843, 40460201 #### [facility] [address] [place] [address]4364 B hCG Qualon 04-24-2023 Beta HCG ( test) Ql Negative Normal [facility] Comment on above: Performed By: #### 2 999600, 3277042, 4663272, 73733214, 33104518 #### [facility] [address] [place] [address]322 BMPon 04-24-2023 Creatinine [Mass/Vol] 0.7 mg/dL Normal 0.5-1.3 [facility] Comment on above: Performed By: #### 2 467941, 1216703, 7833356, 13371565, 35855637 #### [facility] [address] [place] [address] Urea nitrogen [Mass/Vol] 6 mg/dL Normal 5-21 [facility] Comment on above: Performed By: #### 2 772902, 8448385, 0691544, 77371156, 94162744 #### [facility] [address] [place] [address] Urea nitrogen/Creatinine [Mass ratio] 9 No Units Low 10-20 [facility] Comment on above: Performed By: #### 2 551421, 0931953, 5099381, 67449072, 69891837 #### [facility] [address] [place] [address] Anion gap [Moles/Vol] 14 mmol/L Normal 6-16 [facility] Comment on above: Performed By: #### 2 001172, 9192208, 3822398, 11475468, 47783051 #### [facility] [address] [place] [address] Calcium [Mass/Vol] 9.4 mg/dL Normal 8.9-11.1 [facility] Comment on above: Performed By: #### 2 343122, 0536135, 0409690, 39246607, 40561468 #### [facility] [address] [place] [address] Chloride [Moles/Vol] 105 mmol/L Normal 101-111 [facility] Comment on above: Performed By: #### 2 309263, 5365522, 4067385, 58630008, 04365349 #### [facility] [address] [place] [address] CO2 [Moles/Vol] 23 mmol/L Normal 21-31 [facility] Comment on above: Performed By: #### 2 767878, 9935592, 1496436, 88718357, 09565768 #### [facility] [address] [place] [address] Glucose [Mass/Vol] 95 mg/dL Normal 55-199 [facility] Comment on above: Result Comment: If t his glucose result represents a fasting glucose, interpretation should refer to the following reference range: 55-99 mg/dL Performed By: #### 2 555482, 6795052, 2230909, 13877947, 61446108 #### [facility] [address] [place] [address] Potassium [Moles/Vol] 3.8 mmol/L Normal 3.5-5.3 [facility] Comment on above: Performed By: #### 2 458580, 6766091, 0989716, 00168252, 80949649 #### [facility] [address] [place] [address] Sodium [Moles/Vol] 138 mmol/L Normal 135-145 [facility] Comment on above: Performed By: #### 2 096992, 0974379, 8519740, 13896990, 16198672 #### [facility] [address] [place] [address] CBC w/ Auto Diffon 3 Erythrocyte distribution width (RBC) [Ratio] 15.9 % High 10.9-14.2 [facility] Comment on above: Performed By: #### 2 124266, 2895725, 2398365, 69323561, 96211498 #### [facility] [address] [place] [address] Hematocrit (Bld) [Volume fraction] 33.7 % Low 34.0-46.0 [facility] Comment on above: Performed By: #### 2 774046, 0401560, 6945836, 55404650, 34455590 #### [facility] [address] [place] [address] Hemoglobin (Bld) [Mass/Vol] 11.7 g/dL Low 12.0-16.0 [facility] Comment on above: Performed By: #### 2 129582, 6198280, 8498650, 07725697, 62579762 #### [facility] [address] [place] [address]14 MCH (RBC) [Entitic mass] 29.7 pg Normal 27.0-34.0 [facility] Comment on above: Performed By: #### 2 035258, 3011065, 1660959, 14578278, 14194006 #### [facility] [address] [place] [address] 63264 MCHC (RBC) [Mass/Vol] 34.7 g/dL Normal 31.4-36.0 [facility] Comment on above: Performed By: #### 2 245548, 0057082, 9666210, 93408284, 74008065 #### [facility] [address] [place] [address] 05332 MCV (RBC) [Entitic vol] 85.8 fL Normal 80.0-100.0 F [facility] Comment on above: Performed By: #### 2 564018, 2726095, 8011371, 23008099, 19416525 #### [facility] [address] [place] [address]196 Platelet mean volume (Bld) [Entitic vol] 8.2 fL Normal 6.4-10.8 [facility] Comment on above: Performed By: #### 2 115355, 7887893, 1310464, 64875165, 97202074 #### [facility] [address] [place] [address] 24277 Platelets (Bld) [#/Vol] 398.0 E9/L Normal 150.0-500.0 [facility] Comment on above: Performed By: #### 2 350290, 4956306, 9935697, 03516657, 99006789 #### [facility] [address] [place] [address] 48861 RBC (Bld) [#/Vol] 3.9 E12/L Low 4.3-5.9 [facility] Comment on above: Performed By: #### 2 098783, 2236926, 5316339, 84733809, 71173845 #### [facility] [address] [place] [address] WBC corrected for nucl RBC Auto (Bld) [#/Vol] 4.7 E9/L Normal 4.0-11.0 [facility] Comment on above: Performed By: #### 2 544021, 1154474, 6669352, 98135588, 79367839 #### [facility] [address] [place] [address] CHEMISTRYOrdered By: SYSTEM SYSTEM on 04-24-2023 Anion gap [Moles/Vol] 14 mmol/L Normal 6 - 16 mEq/L F [facility] Remisol Calcium [Mass/Vol] 9.4 mg/dL Normal 8.9 - 11. 1 mg/dL [facility] Remisol Chloride [Moles/Vol] 105 mmol/L Normal 101 - 1 11 mmol/L [facility] Remisol CO2 [Moles/Vol] 23 mmol/L Normal 21 - 31 mmol/L [facility] Remisol Creatinine [Mass/Vol] 0.7 mg/dL Normal 0.5 - 1.3 mg/dL [facility] Remisol GFR/1.73 sq M.predicted among non-blacks MDRD (S/P/Bld) [Vol rate/Area] 115 mL/min/1.73 m2 Normal >=59mL/min/1 .73 m2 [facility] Chem S Comment on above: Interpretive Data: C hronic kidney disease could be indicated at eGFR's of less than 60 mL/min/1.73m2. Kidney failure is indicated at less than 15 mL/min/1.73m2. Glucose [Mass/Vol] 95 mg/dL Normal 55 - 199 mg/dL [facility] Remisol Comment on above: Interpretive Data: I f this glucose result represents a fasting glucose, interpretation should refer to the following reference range: 55-99 mg/dL Potassium [Moles/Vol] 3.8 mmol/L Normal 3.5 - 5.3 mmol/L [facility] Remisol Sodium [Moles/Vol] 138 mmol/L Normal 135 - 145 mmol/L [facility] Remisol Urea nitrogen [Mass/Vol] 6 mg/dL Normal 5 - 21 mg/dL [facility] Remisol Urea nitrogen/Creatinine [Mass ratio] 9 mg/mg Low 10 - 20 [facility] Remisol CT Abdomen/Pelvis w/ Contras ton 04-24-2023 [...] 300 Contrast amount in ml's: 100 Normal [facility] Consent for Treatmenton 04-13 Consent for Treatment [id number] 31 [id number] #1.00TIFF Normal [facility] Discharge Instructionson Discharge Instructions [id number] 110 [id number] #1.00TIFF Normal [facility] ED Clinical Summaryon 2022 ED Clinical Summary [address] [id number] ED Clinical Summary Person Information Name: LIVIA NOYOLA/NewMary Grace Age: 38 Years : 1985 Sex: Female Language: Honduran PCP: BETTIE MIRELES Marital Status: Visit Id: [...] 04/24/2023 16:04:18 ADDRESS: [address] [place] [id number] PHYS DOC NOTES: MEDICAL INFORMATION: Prescriptions Given: New Medications [id number], [address] [place], [place] [id number], [phone] oxycodone (oxyCODONE 5 mg Cap) 1 Capsules [...] Address: When: YOUR OBGYN at [facility] In 3 days 04/27/2023 Comments: [...] Abdominal pain, acute, left lower quadrant Normal [facility] ED Note-Physicianon 04-24-20 ED Note-Physician Basic [...] I did review on clinic [facility]. She has a visit at [facility] for similar symptoms in the middle [...] for home. She will follow-up with her REGISTERED SALES ASSISTANT. Return precautions were discussed. All questions were [...] Contact Information YOUR OBGYN at [facility] In 3 days 04/27/2023 EST [...] follow-up with (more content not included)... Normal [facility] Comment on above: Result Comment: Elec [...] these instructions at home: Medicines ? Take qmhk-rec-yslhfvj and prescription medicines only as told by [...] your condition for any changes. ? Take uows-umf-vaeibai and prescription medicines only as told by [...] provider. Document Revised: 07/18/2020 Document Reviewed: 10/08/2019 [employer] Patient Education ? 2022 [employer] Normal [facility] ED Patient Summaryon 023 ED Patient Summary [address] [address] Patient Discharge Instructions Person Information Name: LIVIA NOYOLA Age: 38 Years Arrival Date: 04/24/2023 13:12:30 Discharge Diagnosis: Abdominal pain, acute, left lower quadrant Primary Care Physician: ALINE GENERIC Provider Information Primary Provider: Jignesh Dumont DO Advanced Machine Pecan Gatherer:None The exam and treatment you received in the Emergency Department were for an urgent problem and are not intended as complete care. It is important that you follow up with a doctor, nurse practitioner, or physician?s electrician's assistant for ongoing care. If your symptoms [...] Address: When: YOUR OBGYN at [facility] In 3 days 04/27/2023 Comments: [...] opioids can be used to help relieve jkjuoxft-wa-iztbfd pain and are often prescribed following a [...] Talk about (more content not included)... Normal [facility] HEMATOLOGYOrdered By: SYSTEM SYSTEM on 04-24-2023 [...] test) Ql Negative (04/24/23 1:55 PM) Normal [facility] Man Sero UA With Cult Reflexon 2022 Bacteria LM Ql (Urine sed) TRACE Normal Trace [facility] Comment on above: Performed By: #### 2 973733, 4326146, 7917006, 98274302, 06672127 #### [facility] [address] [place] [address] Bilirubin Ql (U) Negative Normal Negative [facility] Comment on above: Performed By: #### 2 149257, 8583980, 2297883, 54767437, 08107001 #### [facility] [address] [place] [address] Clarity (U) CLEAR Normal Clear [facility] Comment on above: Performed By: #### 2 419622, 1321810, 9337540, 27700453, 85324190 #### [facility] [address] [place] [address] Color (U) STRAW Abnormal Yellow [facility] Comment on above: Performed By: #### 2 686836, 3104774, 4972316, 73035408, 30375429 #### [facility] [address] [place] [address] Epithelial cells.squamous LM.HPF (Urine sed) [#/Area] 3-4 Normal 0-2 [facility] Comment on above: Performed By: #### 2 335456, 0851545, 5626849, 04466496, 39221228 #### [facility] [address] [place] [address] Glucose Test strip (U) [Mass/Vol] Negative Normal Negative [facility] Comment on above: Performed By: #### 2 154813, 2904575, 0641515, 69120835, 18079753 #### [facility] [address] [place] [address] Hemoglobin Ql (U) Negative Normal Negative [facility] Comment on above: Performed By: #### 2 273942, 9608445, 2350714, 58436305, 76579621 #### [facility] [address] [place] [address] Ketones (U) [Mass/Vol] Negative Normal Negative [facility] Comment on above: Performed By: #### 2 699148, 3813385, 0420635, 07857008, 78180682 #### [facility] [address] [place] [address] [place].plasma/[place]. RBC (Bld) [Mass ratio] 0-3 Normal 0-3 [facility] Comment on above: Performed By: #### 2 438117, 2397534, 6244501, 13583958, 54048607 #### [facility] [address] [place] [address] Nitrite Ql (U) Negative Normal Negative [facility] Comment on above: Performed By: #### 2 669881, 0650129, 0464262, 36862589, 68869610 #### [facility] [address] [place] [address]36 pH (U) 7.0 [pH] Invalid Interpretation Code 5.0-9.0 [facility] Comment on above: Performed By: #### 2 735024, 0523606, 0311762, 46507031, 37489554 #### [facility] [address] [place] [address] 18916 Protein (U) [Mass/Vol] Negative Normal Negative [facility] Comment on above: Performed By: #### 2 843315, 3035856, 3619739, 83977100, 62384026 #### [facility] [address] [place] [address]0350 Specific gravity (U) [Rel density] <=1.005 Invalid Interpretation Code 1.005-1.030 [facility] Comment on above: Performed By: #### 2 805764, 2708879, 7581165, 88885532, 37076107 #### [facility] [address] [place] [address] 49274 Type of Urine collection method Clean Catch Normal [facility] Comment on above: Performed By: #### 2 293211, 4249591, 6809807, 75345132, 94480248 #### [facility] [address] [place] [address] Urobilinogen Qn (U) 0.2 {Ivone'U}/dL Normal 0.0-1.0 [facility] Comment on above: Performed By: #### 2 676289, 7198903, 1186762, 72586057, 22531409 #### [facility] [address] [place] [address] WBC Auto Ql (U) TRACE Abnormal Negative [facility] Comment on above: Performed By: #### 2 966229, 9343338, 8931492, 69426036, 05872188 #### [facility] [address] [place] [address] 24077 WBC LM.HPF (Urine sed) [#/Area] 0-5 Normal 0-5 [facility] Comment on above: Performed By: #### 2 391771, 2660543, 3387632, 59071356, 57527276 #### [facility] [address] [place] [address] URINALYSISOrdered By: Chance Guthrie on 04-24-2023 Bacteria [...] PM) Normal Negative [facility] UA Auto SS [place].plasma/[place]. RBC (Bld) [Mass ratio] 0-3 /HPF Normal [...] [facility] UA Auto SS Urobilinogen Qn (U) 0.1165346 {Ivone'U}/dL Normal 0.0 - 1.0 EU/dL [facility] UA Auto SS WBC Auto Ql (U) Trace *ABN* (04/24/23 2:56 PM) Invalid Interpretation Code Negative [facility] UA Auto SS WBC LM.HPF (Urine sed) [#/Area] 0-5 /HPF Normal 0-5/HPF [facility] UA Auto SS eGFRon 04-24-2023 GFR/1.73 sq M.predicted among non-blacks MDRD (S/P/Bld) [Vol rate/Area] 115 mL/min/1.73 m2 Normal >=59 [facility] Comment on above: Order Comment: Order added by Discern Expert. Result Comment: Home Agent franklin kidney disease could be indicated at eGFR's of less than 60 mL/min/1.73m2. Kidney failure is indicated at less than 15 mL/min/1.73m2. Performed By: #### 2 [id number], [id number], [id number] #### [facility] [address] [place] [id number] Anisocytosis [Presence] in B lood by Light microscopyOrdered By: Ming Childress on 04-02-2023 Anisocytosis Ql (Bld) Moderate Normal [facility] Comment on above: Performed By: #### U HCG, ADDONUAPLUS #### [facility] [address] Automated erythrocytes count in urine sediment (number/area)Ordered By: Ming Childress on 04-02-2023 RBC Auto (Urine sed) [#/Area] 20-49 [HPF] 0-4 [facility] Automated leukocytes count i n urine sediment (number/area)Ordered By: Ming Childress on 04-02-2023 WBC Auto (Urine sed) [#/Area] 3-4 [HPF] 0-4 [facility] Automated urine color determ inationOrdered By: Ming Childress on 04-02-2023 Color (U) Yellow Normal Yellow [facility] Comment on above: Order Comment: Name Collection Type:: Clean-Voided Midstream Performed By: #### U HCG, ADDONUAPLUS #### [address] Basic Metabolic Panelon 03-14 Creatinine Clr Calc Pharmacy 97.72 Normal [facility] Comment on above: Result Comment: PERF ORMED BY: [place] [address] PATHOLOGIST CLEAN ROOM OPERATOR FARNAZ ZULETA M.D. Performed By: #### U HCG, ADDONUAPLUS #### [address] GFR/1.73 sq M.predicted MDRD (S/P/Bld) [Vol rate/Area] mL/min/{1.73_m2} Normal [facility] Comment on above: Performed By: #### U HCG, ADDONUAPLUS #### [place] [address] [place] Basophils Auto (Bld) [#/Vol] Ordered By: Ming Childress on 04-02-2023 Basophils (Bld) [#/Vol] N/A [facility] Basophils/100 WBC Auto (Bld) Ordered By: Ming Childress on 04-02-2023 Basophils/100 WBC (Bld) N/A [facility] Basophils/100 leukocytes in Blood by Manual countOrdered By: Mingsil Childress on 04-02-2023 Basophils/100 WBC (Bld) 1 % Normal 0-2 [facility] Comment on above: Performed By: #### U HCG, ADDONUAPLUS #### [facility] [address] Bilirubin Test strip Ql (U)O rdered By: Ming Childress on 04-02-2023 Bilirubin Ql (U) Negative Negative [facility] Calcium [Mass/volume] in Ser um or PlasmaOrdered By: Ming Childress on 04-02-2023 Calcium [Mass/Vol] 9.2 mg/dL Normal 8.6-10.3 [facility] Comment on above: Performed By: #### U HCG, ADDONUAPLUS #### [address] Carbon dioxide, total [Moles /volume] in Serum or PlasmaOrdered By: Ming Childress on 04-02-2023 CO2 [Moles/Vol] 18.5 mmol/L Low 21.0-31.0 [facility] Comment on above: Performed By: #### U HCG, ADDONUAPLUS #### [address] Chloride [Moles/volume] in S binu or PlasmaOrdered By: Ming Childress on 04-02-2023 Chloride [Moles/Vol] 108 mmol/L High 98-107 [facility] Comment on above: Performed By: #### U HCG, ADDONUAPLUS #### [facility] [address] [place] [address] Creatinine [Mass/volume] in Serum or PlasmaOrdered By: Ming Childress on 04-02-2023 Creatinine [Mass/Vol] 0.84 mg/dL Normal 0.60-1.20 [facility] Comment on above: Performed By: #### U HCG, ADDONUAPLUS #### [facility] [address] [place] [address] [place] Diff and CBCon 04-02-2023 Hypochromasia Slight Normal [facility] Comment on above: Performed By: #### U HCG, ADDONUAPLUS #### [address] Mean Corpuscular HGB Conc 31.8 g/dL Low 32.0-35.0 [facility] Comment on above: Performed By: #### U HCG, ADDONUAPLUS #### [place] [address] [place] Monocytes/100 WBC (Bld) 18.83 % Normal 0.00-20.00 [facility] Comment on above: Performed By: #### U HCG, ADDONUAPLUS #### [address] Nucleated Red Blood Cell 3 /100{WBC} High 0-0 [facility] Comment on above: Performed By: #### U HCG, ADDONUAPLUS #### [address] Ovalocytes Slight Normal [facility] Comment on above: Performed By: #### U HCG, ADDONUAPLUS #### [address] Platelet Estimate Increased Normal Normal [facility] Comment on above: Performed By: #### U HCG, ADDONUAPLUS #### [address] Platelet Morphology Normal Normal Normal [facility] Comment on above: Result Comment: PERF ORMED BY: [place] [address] PATHOLOGIST CLEAN ROOM OPERATOR FARNAZ ZULETA M.D. Performed By: #### U HCG, ADDONUAPLUS #### [place] [address] [place] Poikilocytosis Slight Normal [facility] Comment on above: Performed By: #### U HCG, ADDONUAPLUS #### [address] Polychromasia Moderate Normal [facility] Comment on above: Performed By: #### U HCG, ADDONUAPLUS #### [facility] [address] [place] [address] [place] Smudge Cells Slight Normal [facility] Comment on above: Performed By: #### U HCG, ADDONUAPLUS #### [facility] [address] Toxic Vacuolation Slight Normal [facility] Comment on above: Performed By: #### U HCG, ADDONUAPLUS #### [place] [address] [place] Dipstick and Microscopicon 1 Appearance (U) Clear Normal Clear [facility] Comment on above: Order Comment: Name Collection Type:: Clean-Voided Midstream Performed By: #### U HCG, ADDONUAPLUS #### [place] [address] [place] Bacteria,Urine None Seen Normal None Seen [facility] Comment on above: Order Comment: Name Collection Type:: Clean-Voided Midstream Performed By: #### U HCG, ADDONUAPLUS #### [place] [address] [place] Bilirubin,Urine Negative Normal Negative [facility] Comment on above: Order Comment: Name Collection Type:: Clean-Voided Midstream Performed By: #### U HCG, ADDONUAPLUS #### [address] Glucose Ql (U) Normal Normal Normal [facility] Comment on above: Order Comment: Name Collection Type:: Clean-Voided Midstream Performed By: #### U HCG, ADDONUAPLUS #### [place] [address] [place] Hyaline Casts,Urine 0-8 Normal 0-8 [facility] Comment on above: Order Comment: Name Collection Type:: Clean-Voided Midstream Performed By: #### U HCG, ADDONUAPLUS #### [place] [address] [place] Ketones Ql (U) Trace High Negative [facility] Comment on above: Order Comment: Name Collection Type:: Clean-Voided Midstream Performed By: #### U HCG, ADDONUAPLUS #### [place] [address] [place] Leukocyte esterase Test strip Ql (U) 1+ High Negative [facility] Comment on above: Order Comment: Name Collection Type:: Clean-Voided Midstream Performed By: #### U HCG, ADDONUAPLUS #### [place] [address] [place] Nitrite,Urine Negative Normal Negative [facility] Comment on above: Order Comment: Name Collection Type:: Clean-Voided Midstream Performed By: #### U HCG, ADDONUAPLUS #### [place] [address] [place] Occult Blood,Urine 3+ High Negative [facility] Comment on above: Order Comment: Name Collection Type:: Clean-Voided Midstream Performed By: #### U HCG, ADDONUAPLUS #### [place] [address] [place] Protein,Urine Negative Normal Negative [facility] Comment on above: Order Comment: Name Collection Type:: Clean-Voided Midstream Performed By: #### U HCG, ADDONUAPLUS #### [place] [address] [place] RBC,Urine 20-49 High 0-4 [facility] Comment on above: Order Comment: Name Collection Type:: Clean-Voided Midstream Performed By: #### U HCG, ADDONUAPLUS #### [place] [address] [place] Specificy Mcbrides,Urine 1.018 Normal 1.001-1.030 [facility] Comment on above: Order Comment: Name Collection Type:: Clean-Voided Midstream Performed By: #### U HCG, ADDONUAPLUS #### [place] [address] [place] Squamous Epithelial Cell,Urine 3-4 High 0-2 [facility] Comment on above: Order Comment: Name Collection Type:: Clean-Voided Midstream Performed By: #### U HCG, ADDONUAPLUS #### [facility] [address] [place] [address] Urobilinogen,Urine Normal Normal Normal [facility] Comment on above: Order Comment: Name Collection Type:: Clean-Voided Midstream Performed By: #### U HCG, ADDONUAPLUS #### [facility] [address] [place] [address] WBC,Urine 3-4 Normal 0-4 [facility] Comment on above: Order Comment: Name Collection Type:: Clean-Voided Midstream Performed By: #### U HCG, ADDONUAPLUS #### [address] Eosinophils Auto (Bld) [#/Vo l]Ordered By: Ming Childress on 04-02-2023 Eosinophils (Bld) [#/Vol] N/A [facility] Eosinophils/100 WBC Auto (Bl d)Ordered By: Ming Childress on 04-02-2023 Eosinophils/100 WBC (Bld) N/A [facility] Eosinophils/100 leukocytes i n Blood by Manual countOrdered By: Ming Childress on 04-02-2023 Eosinophils/100 WBC (Bld) 4 % High 1-3 [facility] Comment on above: Performed By: #### U HCG, ADDONUAPLUS #### [address] Erythrocyte distribution wid th [Ratio] by Automated countOrdered By: Ming Childress on 04-02-2023 Erythrocyte distribution width (RBC) [Ratio] 15.2 % Normal 11.9-15.3 [facility] Comment on above: Performed By: #### U HCG, ADDONUAPLUS #### [address] Erythrocytes [#/volume] in B lood by Automated countOrdered By: Ming Childress on 04-02-2023 RBC (Bld) [#/Vol] 4.67 10*6/uL Normal 3.60-5.00 [facility] Comment on above: Performed By: #### U HCG, ADDONUAPLUS #### [facility] [address] [place] [address] [place] Glucose [Mass/volume] in Ser um or PlasmaOrdered By: Ming Childress on 04-02-2023 Glucose [Mass/Vol] 94 mg/dL Normal 70-100 [facility] Comment on above: ADA recommended refe rence rangeRandom Glucose Reference Range is dependent on time and content of last meal. Glucose of more than 200 mg/dL in a nonstressed, ambulatory subject supports the diagnosis of Diabetes Mellitus. Result Comment: [place] om Glucose Reference Range is dependent on time and content of last meal. Glucose of more than 200 mg/dL in a nonstressed, ambulatory subject supports the diagnosis of Diabetes Mellitus. ADA recommended reference range Performed By: #### U HCG, ADDONUAPLUS #### [facility] [address] [place] [address] [place] HCG ( test) IA.rapi d Ql (U)Ordered By: Ming Childress on 04-02-2023 HCG ( test) Ql (U) Negative [facility] HCG,Urineon 04-02-2023 Beta HCG ( test) Ql (U) Negative Normal [facility] Comment on above: Order Comment: Name Collection Type:: Clean-Voided Midstream Result Comment: PERF ORMED BY: [place] [address] PATHOLOGIST CLEAN ROOM OPERATOR FARNAZ ZULETA M.D. Performed By: #### U HCG, ADDONUAPLUS #### [facility] [address] [place] [address] [place] Hematocrit [Volume Fraction] of Blood by Automated countOrdered By: Ming Childress on 04-02-2023 Hematocrit (Bld) [Volume fraction] 36.1 % Normal 34.0-46.4 [facility] Comment on above: Performed By: #### U HCG, ADDONUAPLUS #### [facility] [address] [place], [place] [id number] [place] Hemoglobin [Mass/volume] in BloodOrdered By: Ming Childress on 04-02-2023 Hemoglobin (Bld) [Mass/Vol] 11.5 g/dL Low 11.8-15.4 [facility] Comment on above: Performed By: #### U HCG, ADDONUAPLUS #### [facility] [address] [place] [address] Hypochromia LM Ql (Bld)Order ed By: Ming Childress on 04-02-2023 Hypochromia Ql (Bld) Slight [facility] Ketones Auto test strip (U) [Mass/Vol]Ordered By: Ming Childress on 04-02-2023 Ketones (U) [Mass/Vol] Trace Negative [facility] - UrinalysisOrder ed By: Ming Childress on 04-02-2023 Hyaline casts LM Ql (Urine sed) 0-8 [LPF] 0-8 [facility] Leukocytes [#/volume] correc flo for nucleated erythrocytes in Blood by Automated counOrdered By: Ming Childress on 04-02-2023 WBC corrected for nucl RBC Auto (Bld) [#/Vol] 6.8 10*3/uL 3.8-11.6 [facility] Leukocytes [#/volume] in Blo od by Automated countOrdered By: Ming Childress on 04-02-2023 WBC (Bld) [#/Vol] 6.8 10*3/uL Normal 3.8-11.6 [facility] Comment on above: Performed By: #### U HCG, ADDONUAPLUS #### [facility] [address] [place] [address] Lymphocytes Auto (Bld) [#/Vo l]Ordered By: Ming Childress on 04-02-2023 Lymphocytes (Bld) [#/Vol] N/A [facility] Lymphocytes/100 WBC Auto (Bl d)Ordered By: Ming Childress on 04-02-2023 Lymphocytes/100 WBC (Bld) N/A [facility] Lymphocytes/100 leukocytes i n Blood by Manual countOrdered By: Ming Childress on 04-02-2023 Lymphocytes/100 WBC (Bld) 43 % High 18-42 [facility] Comment on above: Performed By: #### U HCG, ADDONUAPLUS #### [facility] [address] [place] [address] MCH [Entitic mass] by Automa flo countOrdered By: Ming Childress on 04-02-2023 MCH (RBC) [Entitic mass] 24.5 pg Low 24.7-34.3 [facility] Comment on above: Performed By: #### U HCG, ADDONUAPLUS #### [facility] [address] [place] [address] MCHC Auto (RBC) [Mass/Vol]Or dered By: Ming Childress on 04-02-2023 MCHC (RBC) [Mass/Vol] 31.8 g/dL 32.0-35.0 [facility] MCV [Entitic volume] by Auto mated countOrdered By: Ming Childress on 04-02-2023 MCV (RBC) [Entitic vol] 77.3 fL Low 80-100 [facility] Comment on above: Performed By: #### U HCG, ADDONUAPLUS #### [facility] [address] [place] [address] Manual blood segmented neutr ophils/100 leukocytesOrdered By: Ming Childress on 04-02-2023 Segmented neutrophils/100 WBC (Bld) 47 % Low 50-70 [facility] Comment on above: Performed By: #### U HCG, ADDONUAPLUS #### [facility] [address] [place] [address] Monocyte distribution width [Entitic volume] in Blood by AutomatedOrdered By: Ming Childress on 04-02-2023 Monocyte distribution width Auto (Bld) [Entitic vol] 18.83 % 0.00-20.00 [facility] Monocytes Auto (Bld) [#/Vol] Ordered By: Ming Childress on 04-02-2023 Monocytes (Bld) [#/Vol] N/A [facility] Monocytes/100 WBC Auto (Bld) Ordered By: Ming Childress on 04-02-2023 Monocytes/100 WBC (Bld) N/A [facility] Monocytes/100 leukocytes in Blood by Manual countOrdered By: Ming Childress on 04-02-2023 Monocytes/100 WBC (Bld) 5 % Normal 2-11 [facility] Comment on above: Performed By: #### U HCG, ADDONUAPLUS #### [address] Neutrophils Auto (Bld) [#/Vo l]Ordered By: Ming Childress on 04-02-2023 Neutrophils (Bld) [#/Vol] N/A [facility] Neutrophils/100 WBC Auto (Bl d)Ordered By: Ming Childress on 04-02-2023 Neutrophils/100 WBC (Bld) N/A [facility] Nitrite Test strip Ql (U)Ord ered By: Ming Childress on 04-02-2023 Nitrite Ql (U) Negative Negative [facility] No Panel InformationOrdered By: Ming Childress on 04-02-2023 Estimated GFR (CKD-EPI) > 60.0 mL/Min [facility] Creatinine Clearance (Chem 97.72 [facility] Nucleated RBC/100 WBC Manual cnt (Bld) [Ratio]Ordered By: Ming Childress on 04-02-2023 Nucleated RBC/100 WBC (Bld) [Ratio] 3 /100{WBC} 0-0 [facility] Nucleated erythrocytes [Pres ence] in Blood by Automated countOrdered By: Ming Childress on 04-02-2023 Nucleated RBC Auto Ql (Bld) N/A [facility] Ovalocyte detectionOrdered B y: Ming Childress on 04-02-2023 Ovalocytes LM Ql (Bld) [facility] Platelet adequacy [Presence] in Blood by Light microscopyOrdered By: Ming Childress on 04-02-2023 Platelets LM Ql (Bld) Increased Normal [facility] Platelet mean volume [Entiti c volume] in Blood by Automated countOrdered By: Ming Childress on 04-02-2023 Platelet mean volume (Bld) [Entitic vol] 8.1 fL Normal 6.3-10.7 [facility] Comment on above: Result Comment: PERF ORMED BY: [place] [address] PATHOLOGIST CLEAN ROOM OPERATOR FARNAZ ZULETA M.D. Performed By: #### U HCG, ADDONUAPLUS #### [facility] [address] [place] [address] Platelet morphology finding [Identifier] in BloodOrdered By: Ming Childress on 04-02-2023 Platelet morphology finding Nom (Bld) Normal Normal [facility] Platelets [#/volume] in Bloo d by Automated countOrdered By: Ming Childress on 04-02-2023 Platelets (Bld) [#/Vol] 492 10*3/uL High 150-450 [facility] Comment on above: Performed By: #### U HCG, ADDONUAPLUS #### [facility] [address] [place] [address] Poikilocytosis [Presence] in Blood by Light microscopyOrdered By: Ming Childress on 04-02-2023 Poikilocytosis LM Ql (Bld) Slight [facility] Polychromasia [Presence] in Blood by Light microscopyOrdered By: Ming Childress on 04-02-2023 Polychromasia LM Ql (Bld) Moderate [facility] Potassium [Moles/volume] in Serum or PlasmaOrdered By: Ming Childress on 04-02-2023 Potassium [Moles/Vol] 3.7 mmol/L Normal 3.5-5.1 [facility] Comment on above: Performed By: #### U HCG, ADDONUAPLUS #### [facility] [address] [place] [address] [place] Protein Auto test strip (U) [Mass/Vol]Ordered By: Ming Childress on 04-02-2023 Protein (U) [Mass/Vol] Negative Negative [facility] RBC morphologyOrdered By: Carmen Childress on 04-02-2023 RBC morphology finding Nom (Bld) N/A [facility] Serum or plasma anion gap de terminationOrdered By: Ming Childress on 04-02-2023 Anion gap [Moles/Vol] 14.2 mmol/L Normal 6.0-15.0 [facility] Comment on above: Performed By: #### U HCG, ADDONUAPLUS #### [facility] [address] [place] [address] Smudge cell detectionOrdered By: Ming Childress on 04-02-2023 Smudge cells LM Ql (Bld) [facility] Sodium [Moles/volume] in Ser um or PlasmaOrdered By: Ming Childress on 04-02-2023 Sodium [Moles/Vol] 137 mmol/L Normal 136-145 [facility] Comment on above: Performed By: #### U HCG, ADDONUAPLUS #### [facility] [address] [place] [address] Specific gravity Auto test s trip (U) [Rel density]Ordered By: Ming Childress on 04-02-2023 Specific gravity (U) [Rel density] 1.018 1.001-1.030 [facility] Squamous epithelial cells de tection in urine sediment by light microscopyOrdered By: Ming Childress on 04-02-2023 Epithelial cells.squamous LM Ql (Urine sed) 3-4 [HPF] 0-2 [facility] Toxic leukocyte vacuolation detectionOrdered By: Ming Childress on 04-02-2023 Leukocyte toxic vacuoles LM Ql (Bld) [facility] Urea nitrogen [Mass/volume] in Serum or PlasmaOrdered By: Ming Childress on 04-02-2023 Urea nitrogen [Mass/Vol] 9 mg/dL Normal 7-25 [facility] Comment on above: Performed By: #### U HCG, ADDONUAPLUS #### [facility] [address] [place] [address] Urine bacteria detection by automated methodOrdered By: Ming Childress on 04-02-2023 Bacteria Auto Ql (U) None seen None Seen [facility] Urine clarity by refractomet ry automatedOrdered By: Ming Childress on 04-02-2023 Clarity Refractometry automated (U) Clear Clear [facility] Urine glucose measurement by automated test strip (mass/volume)Ordered By: Ming Childress on 04-02-2023 Glucose Auto test strip (U) [Mass/Vol] Normal mg/dL Normal [facility] Urine hemoglobin detection b y automated test stripOrdered By: Ming Childress on 04-02-2023 Hemoglobin Auto test strip Ql (U) 3+ Negative [facility] Urine leukocyte esterase det ection by automated test stripOrdered By: Ming Childress on 04-02-2023 Leukocyte esterase Auto test strip Ql (U) 1+ Negative [facility] Urine pH measurement by auto mated test stripOrdered By: Ming Childress on 04-02-2023 pH (U) 6.0 [pH] Normal 5.0-9.0 [facility] Comment on above: Order Comment: Name Collection Type:: Clean-Voided Midstream Performed By: #### U HCG, ADDONUAPLUS #### [facility] [address] Urobilinogen Auto test strip (U) [Mass/Vol]Ordered By: Ming Childress on 04-02-2023 Urobilinogen (U) [Mass/Vol] Normal mg/dL Normal [facility] Alanine aminotransferase [En zymatic activity/volume] in Serum or PlasmaOrdered By: Ming Childress on 03-29-2023 ALT [Catalytic activity/Vol] 14 U/L Normal 7-52 [facility] Comment on above: Performed By: #### B MP, LIPASE, HEPATIC #### [facility] [address] [place] [address] [place] Albumin [Mass/volume] in Ser um or Plasma by Bromocresol green (BCG) dye binding methoOrdered By: Ming Childress on 03-29-2023 Albumin BCG dye [Mass/Vol] 4.0 g/dL 3.5-5.7 [facility] Alkaline phosphatase [Enzyma tic activity/volume] in Serum or PlasmaOrdered By: Ming Childress on 03-29-2023 ALP [Catalytic activity/Vol] 61 U/L Normal 34-104 [facility] Comment on above: Performed By: #### B MP, LIPASE, HEPATIC #### [facility] [address] [place] [address] Aspartate aminotransferase [ Enzymatic activity/volume] in Serum or PlasmaOrdered By: Ming Childress on 03-29-2023 AST [Catalytic activity/Vol] 19 U/L Normal 13-39 [facility] Comment on above: Performed By: #### B MP, LIPASE, HEPATIC #### [address] Automated basophil %Ordered By: Ming Childress on 03-29-2023 Basophils/100 WBC (Bld) 1.3 % Normal . [facility] Comment on above: Performed By: #### U HCG, ADDONUAPLUS #### [address] Automated basophil countOrde red By: Ming Childress on 03-29-2023 Basophils (Bld) [#/Vol] 0.1 10*3/uL Normal 0.0-0.2 [facility] Comment on above: Result Comment: PERF ORMED BY: [place] [address] PATHOLOGIST CLEAN ROOM OPERATOR FARNAZ ZULETA M.D. Performed By: #### U HCG, ADDONUAPLUS #### [address] Automated blood monocyte cou ntOrdered By: Ming Childress on 03-29-2023 Monocytes (Bld) [#/Vol] 0.6 10*3/uL Normal 0.0-0.8 [facility] Comment on above: Performed By: #### U HCG, ADDONUAPLUS #### [address] Automated eosinophil %Ordere d By: Ming Childress on 03-29-2023 Eosinophils/100 WBC (Bld) 1.8 % Normal . [facility] Comment on above: Performed By: #### U HCG, ADDONUAPLUS #### [address] Automated eosinophil countOr dered By: Ming Childress on 03-29-2023 Eosinophils (Bld) [#/Vol] 0.1 10*3/uL Normal 0.0-0.45 [facility] Comment on above: Performed By: #### U HCG, ADDONUAPLUS #### [address] Automated monocyte %Ordered By: Ming Childress on 03-29-2023 Monocytes/100 WBC (Bld) 7.3 % Normal . [facility] Comment on above: Performed By: #### U HCG, ADDONUAPLUS #### [address] Automated neutrophil %Ordere d By: Ming Childress on 03-29-2023 Neutrophils/100 WBC (Bld) 46.8 % Normal . [facility] Comment on above: Performed By: #### U HCG, ADDONUAPLUS #### [address] Automated urine color determ inationOrdered By: Ming Childress on 03-29-2023 Color (U) Yellow Normal Yellow [facility] Comment on above: Order Comment: Name Collection Type:: Clean-Voided Midstream Performed By: #### H CGQNT #### [address] Basic Metabolic Panelon 03-13 Creatinine Clr Calc Pharmacy 134.47 Normal [facility] Comment on above: Performed By: #### B MP, LIPASE, HEPATIC #### [address] GFR/1.73 sq M.predicted MDRD (S/P/Bld) [Vol rate/Area] mL/min/{1.73_m2} Normal [facility] Comment on above: Performed By: #### B MP, LIPASE, HEPATIC #### [address] Bilirubin Test strip Ql (U)O rdered By: Ming Childress on 03-29-2023 Bilirubin Ql (U) Negative Negative [facility] Bilirubin.direct [Mass/volum e] in Serum or PlasmaOrdered By: Ming Childress on 03-29-2023 Bilirubin.direct [Mass/Vol] 0.10 mg/dL 0.03-0.18 [facility] Bilirubin.total [Mass/volume ] in Serum or PlasmaOrdered By: Ming Childress on 03-29-2023 Bilirubin [Mass/Vol] 0.3 mg/dL Normal 0.3-1.0 [facility] Comment on above: Performed By: #### B MP, LIPASE, HEPATIC #### [facility] [address] abdomen pelvis w conon CT abdomen pelvis w con [facility] Main [place] [address] [place] [address] CT Scan Report Signed Patient: Livia Noyola MR#: [id number] 757 : 1985 Acct:[id number] Age/Sex: 38 / F ADM Date: 03/29/23 Loc: Room: [address] [place] [address] Type: ADM IN Attending Dr: Christi Aquino [...] Alesha Tejada M.D.03/29/2023 7:14 AM Dictation Location: [place] [address] Transcribed By: AMBER 03/29/23713 Dictated By: Alesha Tejada MD 03/29/23709 Signed By: 03/29/23713 Normal [facility] Calcium [Mass/volume] in Ser um or PlasmaOrdered By: Ming Childress on 03-29-2023 Calcium [Mass/Vol] 8.9 mg/dL Normal 8.6-10.3 [facility] Comment on above: Performed By: #### B MP, LIPASE, HEPATIC #### [facility] [address] [place] [address] Carbon dioxide, total [Moles /volume] in Serum or PlasmaOrdered By: Ming Childress on 03-29-2023 CO2 [Moles/Vol] 22.2 mmol/L Normal 21.0-31.0 [facility] Comment on above: Performed By: #### B MP, LIPASE, HEPATIC #### [facility] [address] [place] [address] [place] Chloride [Moles/volume] in S binu or PlasmaOrdered By: Ming Childress on 03-29-2023 Chloride [Moles/Vol] 107 mmol/L Normal 98-107 [facility] Comment on above: Performed By: #### B MP, LIPASE, HEPATIC #### [place] [id number] [place] Complete Blood Count Auto Di ffon 03-29-2023 Mean Corpuscular HGB Conc 32.0 g/dL Normal 32.0-35.0 [facility] Comment on above: Performed By: #### U HCG, ADDONUAPLUS #### [facility] [address] NRBC% 0.1 /100{WBC} Normal 0-0.5 [facility] Comment on above: Performed By: #### U HCG, ADDONUAPLUS #### [facility] [address] Creatinine [Mass/volume] in Serum or PlasmaOrdered By: Ming Childress on 03-29-2023 Creatinine [Mass/Vol] 0.63 mg/dL Normal 0.60-1.20 [facility] Comment on above: Performed By: #### B MP, LIPASE, HEPATIC #### [facility] [address] Erythrocyte distribution wid th [Ratio] by Automated countOrdered By: Ming Childress on 03-29-2023 Erythrocyte distribution width (RBC) [Ratio] 15.2 % Normal 11.9-15.3 [facility] Comment on above: Performed By: #### U HCG, ADDONUAPLUS #### [facility] [address] [place] [address] [place] Erythrocytes [#/volume] in B lood by Automated countOrdered By: Ming Childress on 03-29-2023 RBC (Bld) [#/Vol] 4.34 10*6/uL Normal 3.60-5.00 [facility] Comment on above: Performed By: #### U HCG, ADDONUAPLUS #### [address] Glucose [Mass/volume] in Ser um or PlasmaOrdered By: Ming Childress on 03-29-2023 Glucose [Mass/Vol] 90 mg/dL Normal 70-100 [facility] Comment on above: ADA recommended refe rence rangeRandom Glucose Reference Range is dependent on time and content of last meal. Glucose of more than 200 mg/dL in a nonstressed, ambulatory subject supports the diagnosis of Diabetes Mellitus. Result Comment: [place] om Glucose Reference Range is dependent on time and content of last meal. Glucose of more than 200 mg/dL in a nonstressed, ambulatory subject supports the diagnosis of Diabetes Mellitus. ADA recommended reference range Performed By: #### B MP, LIPASE, HEPATIC #### [address] HCG ( test) IA.rapi d Ql (U)Ordered By: Ming Childress on 03-29-2023 HCG ( test) Ql (U) Negative [facility] HCG,Urineon 03-29-2023 Beta HCG ( test) Ql (U) Negative Normal [facility] Comment on above: Order Comment: Name Collection Type:: Clean-Voided Midstream Result Comment: PERF ORMED BY: [place] [address] PATHOLOGIST CLEAN ROOM OPERATOR FARNAZ ZULETA M.D. Performed By: #### H CGQNT #### [address] Hematocrit [Volume Fraction] of Blood by Automated countOrdered By: Ming Childress on 03-29-2023 Hematocrit (Bld) [Volume fraction] 32.6 % Low 34.0-46.4 [facility] Comment on above: Performed By: #### U HCG, ADDONUAPLUS #### [address] Hemoglobin [Mass/volume] in BloodOrdered By: Ming Childress on 03-29-2023 Hemoglobin (Bld) [Mass/Vol] 10.4 g/dL Low 11.8-15.4 [facility] Comment on above: Performed By: #### U HCG, ADDONUAPLUS #### [address] Hepatic Panelon 03-29-2023 Albumin [Mass/Vol] 4.0 g/dL Normal 3.5-5.7 [facility] Comment on above: Performed By: #### B MP, LIPASE, HEPATIC #### [address] Bilirubin,Indirect 0.2 mg/dL Normal [facility] Comment on above: Performed By: #### B MP, LIPASE, HEPATIC #### [facility] [address] Bilirubin.indirect [Mass/Vol] 0.10 mg/dL Normal 0.03-0.18 [facility] Comment on above: Performed By: #### B MP, LIPASE, HEPATIC #### [facility] [address] Ketones Auto test strip (U) [Mass/Vol]Ordered By: Ming Childress on 03-29-2023 Ketones (U) [Mass/Vol] Negative Negative [facility] Lactate [Moles/volume] in Se rum or PlasmaOrdered By: Megan Muniz on 03-29-2023 Lactate [Moles/Vol] 0.8 mmol/L Normal 0.5-2.2 [facility] Comment on above: Result Comment: PERF ORMED BY: [place] [address] PATHOLOGIST CLEAN ROOM OPERATOR FARNAZ ZULETA M.D. Performed By: #### H CGQNT #### [facility] [address] Leukocytes [#/volume] correc flo for nucleated erythrocytes in Blood by Automated counOrdered By: Ming Childress on 03-29-2023 WBC corrected for nucl RBC Auto (Bld) [#/Vol] 7.5 10*3/uL 3.8-11.6 [facility] Leukocytes [#/volume] in Blo od by Automated countOrdered By: Ming Childress on 03-29-2023 WBC (Bld) [#/Vol] 7.5 10*3/uL Normal 3.8-11.6 [facility] Comment on above: Performed By: #### U HCG, ADDONUAPLUS #### [facility] [address] Lipase [Enzymatic activity/v olume] in Serum or PlasmaOrdered By: Ming Childress on 03-29-2023 Lipase [Catalytic activity/Vol] 30.0 U/L Normal 11.0-82.0 [facility] Comment on above: Result Comment: PERF ORMED BY: [place] [address] PATHOLOGIST CLEAN ROOM OPERATOR FARNAZ ZULETA M.D. Performed By: #### B MP, LIPASE, HEPATIC #### [address] Lymphocytes [#/volume] in Bl ood by Automated countOrdered By: Ming Childress on 03-29-2023 Lymphocytes (Bld) [#/Vol] 3.2 10*3/uL Normal 1.00-4.8 [facility] Comment on above: Performed By: #### U HCG, ADDONUAPLUS #### [address] Lymphocytes/100 leukocytes i n Blood by Automated countOrdered By: Ming Childress on 03-29-2023 Lymphocytes/100 WBC (Bld) 42.8 % Normal . [facility] Comment on above: Performed By: #### U HCG, ADDONUAPLUS #### [address] MCH [Entitic mass] by Automa flo countOrdered By: Ming Childress on 03-29-2023 MCH (RBC) [Entitic mass] 24.1 pg Low 24.7-34.3 [facility] Comment on above: Performed By: #### U HCG, ADDONUAPLUS #### [address] MCHC Auto (RBC) [Mass/Vol]Or dered By: Ming Childress on 03-29-2023 MCHC (RBC) [Mass/Vol] 32.0 g/dL 32.0-35.0 [facility] MCV [Entitic volume] by Auto mated countOrdered By: Ming Childress on 03-29-2023 MCV (RBC) [Entitic vol] 75.2 fL Low 80-100 [facility] Comment on above: Performed By: #### U HCG, ADDONUAPLUS #### [address] [place] [address] [place] Neutrophils [#/volume] in Bl ood by Automated countOrdered By: Ming Childress on 03-29-2023 Neutrophils (Bld) [#/Vol] 3.5 10*3/uL Normal 1.8-7.7 [facility] Comment on above: Performed By: #### U HCG, ADDONUAPLUS #### [facility] [address] [place] [address] Nitrite Test strip Ql (U)Ord ered By: Ming Childress on 03-29-2023 Nitrite Ql (U) Negative Negative [facility] No Panel InformationOrdered By: Ming Childress on 03-29-2023 Estimated GFR (CKD-EPI) > 60.0 mL/Min [facility] Creatinine Clearance (Chem 134.47 [facility] Nucleated erythrocytes [Pres ence] in Blood by Automated countOrdered By: Ming Childress on 03-29-2023 Nucleated RBC Auto Ql (Bld) 0.1 /100{WBC} 0-0.5 [facility] Platelet mean volume [Entiti c volume] in Blood by Automated countOrdered By: Ming Childress on 03-29-2023 Platelet mean volume (Bld) [Entitic vol] 8.0 fL Normal 6.3-10.7 [facility] Comment on above: Performed By: #### U HCG, ADDONUAPLUS #### [facility] [address] [place] [address] [place] Platelets [#/volume] in Bloo d by Automated countOrdered By: Ming Childress on 03-29-2023 Platelets (Bld) [#/Vol] 396 10*3/uL Normal 150-450 [facility] Comment on above: Performed By: #### U HCG, ADDONUAPLUS #### [facility] [address] [place] [address] [place] Potassium [Moles/volume] in Serum or PlasmaOrdered By: Ming Childress on 03-29-2023 Potassium [Moles/Vol] 3.6 mmol/L Normal 3.5-5.1 [facility] Comment on above: Performed By: #### B MP, LIPASE, HEPATIC #### [address] Protein Auto test strip (U) [Mass/Vol]Ordered By: Ming Childress on 03-29-2023 Protein (U) [Mass/Vol] Negative Negative [facility] Protein [Mass/volume] in Ser um or PlasmaOrdered By: Ming Childress on 03-29-2023 Protein [Mass/Vol] 6.8 g/dL Normal 6.4-8.9 [facility] Comment on above: Performed By: #### B MP, LIPASE, HEPATIC #### [address] Serum globulin measurement b y calculation (mass/volume)Ordered By: Ming Childress on 03-29-2023 Globulin (S) [Mass/Vol] 2.8 g/dL Normal [facility] Comment on above: Performed By: #### B MP, LIPASE, HEPATIC #### [address] Serum or plasma albumin/glob ulin mass ratioOrdered By: Ming Childress on 03-29-2023 Albumin/Globulin [Mass ratio] 1.4 {ratio} Normal [facility] Comment on above: Performed By: #### B MP, LIPASE, HEPATIC #### [address] Serum or plasma anion gap de terminationOrdered By: Ming Childress on 03-29-2023 Anion gap [Moles/Vol] 12.4 mmol/L Normal 6.0-15.0 [facility] Comment on above: Performed By: #### B MP, LIPASE, HEPATIC #### [address] Serum or plasma non-glucuron idated bilirubin measurement (mass/volume)Ordered By: Ming Childress on 03-29-2023 Bilirubin.indirect [Mass/Vol] 0.2 mg/dL [facility] Sodium [Moles/volume] in Ser um or PlasmaOrdered By: Ming Childress on 03-29-2023 Sodium [Moles/Vol] 138 mmol/L Normal 136-145 [facility] Comment on above: Performed By: #### B MP, LIPASE, HEPATIC #### [facility] [address] [place] [id number] [facility] Specific gravity Auto test s trip (U) [Rel density]Ordered By: Ming Childress on 03-29-2023 Specific gravity (U) [Rel density] 1.003 1.001-1.030 [facility] US transvaginalon 03-29-2023 US transvaginal [facility] Main [place] [address] [place] [address] Ultrasound Report Signed Patient: Livia Noyola MR#: [id number] 757 : 1985 Acct:[id number] Age/Sex: 38 / F ADM Date: 03/29/23 Loc: Room: [address] [place] [address] Type: ADM IN Attending Dr: Christi Aquino MD Ordering Provider: Ming Childress DO Date of Service: 03/29/23 US/US transvaginal: r/o L ovarian torsion ([id number]) US/US pelvic complete: PAIN Copies to: DO [...] Davi Figueroa M.D.03/29/2023 8:20 AM Dictation Location: [place] [address] Tech: Brooke Hodge Transcribed By: AMBER 03/29/23 0820 Dictated By: Davi Figueroa DO 03/29/23 0816 Signed By: 03/29/23 0820 Normal [facility] Urea nitrogen [Mass/volume] in Serum or PlasmaOrdered By: Ming Childress on 03-29-2023 Urea nitrogen [Mass/Vol] 6 mg/dL Low 01-04 [facility] Comment on above: Performed By: #### B MP, LIPASE, HEPATIC #### [facility] [address] [place] [address] Urinalysison 03-29-2023 Appearance (U) Clear Normal Clear [facility] Comment on above: Order Comment: Name Collection Type:: Clean-Voided Midstream Performed By: #### H CGQNT #### [address] Bilirubin,Urine Negative Normal Negative [facility] Comment on above: Order Comment: Name Collection Type:: Clean-Voided Midstream Performed By: #### H CGQNT #### [address] Glucose Ql (U) Normal Normal Normal [facility] Comment on above: Order Comment: Name Collection Type:: Clean-Voided Midstream Performed By: #### H CGQNT #### [address] Ketones Ql (U) Negative Normal Negative [facility] Comment on above: Order Comment: Name Collection Type:: Clean-Voided Midstream Performed By: #### H CGQNT #### [place] [id number] [facility] Leukocyte esterase Test strip Ql (U) Negative Normal Negative [facility] Comment on above: Order Comment: Name Collection Type:: Clean-Voided Midstream Performed By: #### H CGQNT #### [place] [address] [place] Nitrite,Urine Negative Normal Negative [facility] Comment on above: Order Comment: Name Collection Type:: Clean-Voided Midstream Performed By: #### H CGQNT #### [place] [address] [place] Occult Blood,Urine Negative Normal Negative [facility] Comment on above: Order Comment: Name Collection Type:: Clean-Voided Midstream Performed By: #### H CGQNT #### [facility] [address] [place] [address] [place] Protein,Urine Negative Normal Negative [facility] Comment on above: Order Comment: Name Collection Type:: Clean-Voided Midstream Performed By: #### H CGQNT #### [facility] [address] [place] [address] Specificy Mcbrides,Urine 1.003 Normal 1.001-1.030 [facility] Comment on above: Order Comment: Name Collection Type:: Clean-Voided Midstream Performed By: #### H CGQNT #### [address] Urobilinogen,Urine Normal Normal Normal [facility] Comment on above: Order Comment: Name Collection Type:: Clean-Voided Midstream Performed By: #### H CGQNT #### [address] Urine clarity by refractomet ry automatedOrdered By: Ming Childress on 03-29-2023 Clarity Refractometry automated (U) Clear Clear [facility] Urine glucose measurement by automated test strip (mass/volume)Ordered By: Ming Childress on 03-29-2023 Glucose Auto test strip (U) [Mass/Vol] Normal mg/dL Normal [facility] Urine hemoglobin detection b y automated test stripOrdered By: Ming Childress on 03-29-2023 Hemoglobin Auto test strip Ql (U) Negative Negative [facility] Urine leukocyte esterase det ection by automated test stripOrdered By: Ming Childress on 03-29-2023 Leukocyte esterase Auto test strip Ql (U) Negative Negative [facility] Urine pH measurement by auto mated test stripOrdered By: Ming Childress on 03-29-2023 pH (U) 7.5 [pH] Normal 5.0-9.0 [facility] Comment on above: Order Comment: Name Collection Type:: Clean-Voided Midstream Performed By: #### H CGQNT #### [facility] [address] [place], [place] [id number] [facility] Urobilinogen Auto test strip (U) [Mass/Vol]Ordered By: Ming Childress on 03-29-2023 Urobilinogen (U) [Mass/Vol] Normal mg/dL Normal [facility] Automated urine color determ inationOrdered By: Elier Jackson on 02-06-2023 Color (U) Yellow Normal Yellow [facility] Comment on above: Order Comment: Name Collection Type:: Clean-Voided Midstream Performed By: #### U A, UHCG #### [address] Bilirubin Test strip Ql (U)O rdered By: Elier Jackson on 02-06-2023 Bilirubin Ql (U) Negative Negative [facility] CT abdomen pelvis w conon CT abdomen pelvis w con [facility] Main [place] [address] [place] [address] CT Scan Report Signed Patient: Livia Noyola MR#: [id number] 757 : 1985 Acct:[id number] Age/Sex: 38 / F ADM Date: 02/05/23 Loc: ER Room: Type: [facility] ER Attending Dr: Copies to: Elier Jackson [...] findings. Impression dictated by: Dennis Betancur Jr., DJuan J02/06/2023 11:23 AM Dictation Location: [place] [address] Transcribed By: [facility] 02/06/23 1123 Dictated By: Dennis Betnacur Jr, DO 02/06/23 1109 Signed By: 02/06/23 112 Normal [facility] HCG ( test) IA.rapi d Ql (U)Ordered By: Elier Jackson on 02-06-2023 HCG ( test) Ql (U) Negative [facility] HCG,Urineon 02-06-2023 Beta HCG ( test) Ql (U) Negative Normal [facility] Comment on above: Order Comment: Name Collection Type:: Clean-Voided Midstream Result Comment: PERF ORMED BY: [place] [address] PATHOLOGIST CLEAN ROOM OPERATOR FARNAZ ZULETA M.D. Performed By: #### U A, [facility] #### [address] Ketones Auto test strip (U) [Mass/Vol]Ordered By: Elier Jackson on 02-06-2023 Ketones (U) [Mass/Vol] Negative Negative [facility] Nitrite Test strip Ql (U)Ord ered By: Elier Jackson on 02-06-2023 Nitrite Ql (U) Negative Negative [facility] Protein Auto test strip (U) [Mass/Vol]Ordered By: Elier Jackson on 02-06-2023 Protein (U) [Mass/Vol] Negative Negative [facility] Specific gravity Auto test s trip (U) [Rel density]Ordered By: Elier Jackson on 02-06-2023 Specific gravity (U) [Rel density] 1.007 1.001-1.030 [facility] US pelvic completeon 023 US pelvic complete [facility] Main [place] [address] [place] [address] Ultrasound Report Signed Patient: Livia Noyola MR#: [id number] 757 : 1985 Acct:[id number] Age/Sex: 38 / F ADM Date: 02/05/23 Loc: ER Room: Type: [facility] ER Attending Dr: Ordering Provider: Elier Jackson DO Date of Service: 02/06/23 US/US pelvic complete: adnexa pain ([id number]) US/US transvaginal: . Copies to: Elier Jackson [...] ultrasound. Impression dictated by: Dennis Betancur Jr., D.OEbenezer02/06/2023 11:25 AM Dictation Location: [place] [address] Tech: Jada Webb Transcribed By: [facility] 02/06/23 112 Dictated By: Dennis Betancur Jr, DO 02/06/23 112 Signed By: 02/06/23 1125 Normal [facility] Urinalysison 02-06-2023 Appearance (U) Clear Normal Clear [facility] Comment on above: Order Comment: Name Collection Type:: Clean-Voided Midstream Performed By: #### [facility], [facility] #### [address] Bilirubin,Urine Negative Normal Negative [facility] Comment on above: Order Comment: Name Collection Type:: Clean-Voided Midstream Performed By: #### U A, UHCG #### [facility] [address] [place] [id number] [facility] Glucose Ql (U) Normal Normal Normal [facility] Comment on above: Order Comment: Name Collection Type:: Clean-Voided Midstream Performed By: #### U A, UHCG #### [place] [id number] [place] Ketones Ql (U) Negative Normal Negative [facility] Comment on above: Order Comment: Name Collection Type:: Clean-Voided Midstream Performed By: #### U A, UHCG #### [address] Leukocyte esterase Test strip Ql (U) Negative Normal Negative [facility] Comment on above: Order Comment: Name Collection Type:: Clean-Voided Midstream Performed By: #### U A, UHCG #### [place] [address] [place] Nitrite,Urine Negative Normal Negative [facility] Comment on above: Order Comment: Name Collection Type:: Clean-Voided Midstream Performed By: #### U A, UHCG #### [place] [id number] [place] Occult Blood,Urine Negative Normal Negative [facility] Comment on above: Order Comment: Name Collection Type:: Clean-Voided Midstream Performed By: #### U A, UHCG #### [place] [address] [place] Protein,Urine Negative Normal Negative [facility] Comment on above: Order Comment: Name Collection Type:: Clean-Voided Midstream Performed By: #### U A, UHCG #### [place] [id number] [place] Specificy Mcbrides,Urine 1.007 Normal 1.001-1.030 [facility] Comment on above: Order Comment: Name Collection Type:: Clean-Voided Midstream Performed By: #### U A UHCG #### [facility] [address] Urobilinogen,Urine Normal Normal Normal [facility] Comment on above: Order Comment: Name Collection Type:: Clean-Voided Midstream Performed By: #### U A UHCG #### [address] Urine clarity by refractomet ry automatedOrdered By: Elier Jackson on 02-06-2023 Clarity Refractometry automated (U) Clear Clear [facility] Urine glucose measurement by automated test strip (mass/volume)Ordered By: Elier Jackson on 02-06-2023 Glucose Auto test strip (U) [Mass/Vol] Normal mg/dL Normal [facility] Urine hemoglobin detection b y automated test stripOrdered By: Elier Jackson on 02-06-2023 Hemoglobin Auto test strip Ql (U) Negative Negative [facility] Urine leukocyte esterase det ection by automated test stripOrdered By: Elier Jackson on 02-06-2023 Leukocyte esterase Auto test strip Ql (U) Negative Negative [facility] Urine pH measurement by auto mated test stripOrdered By: Elier Jackson on 02-06-2023 pH (U) 7.0 [pH] Normal 5.0-9.0 [facility] Comment on above: Order Comment: Name Collection Type:: Clean-Voided Midstream Performed By: #### U Chi CG #### [facility] [address] [place] [address] Urobilinogen Auto test strip (U) [Mass/Vol]Ordered By: Elier Jackson on 02-06-2023 Urobilinogen (U) [Mass/Vol] Normal mg/dL Normal [facility] Alanine aminotransferase [En zymatic activity/volume] in Serum or PlasmaOrdered By: Elier Jackson on 02-05-2023 ALT [Catalytic activity/Vol] 13 U/L Normal 7-52 [facility] Comment on above: Performed By: #### H CGQNT #### [address] Albumin [Mass/volume] in Ser um or Plasma by Bromocresol green (BCG) dye binding methoOrdered By: Elier Jackson on 02-05-2023 Albumin BCG dye [Mass/Vol] 4.2 g/dL 3.5-5.7 [facility] Alkaline phosphatase [Enzyma tic activity/volume] in Serum or PlasmaOrdered By: Elier Jackson on 02-05-2023 ALP [Catalytic activity/Vol] 52 U/L Normal 34-104 [facility] Comment on above: Performed By: #### H CGQNT #### [address] Aspartate aminotransferase [ Enzymatic activity/volume] in Serum or PlasmaOrdered By: Elier Jackson on 02-05-2023 AST [Catalytic activity/Vol] 12 U/L Low 13-39 [facility] Comment on above: Performed By: #### H CGQNT #### [address] Automated basophil %Ordered By: Elier Jackson on 02-05-2023 Basophils/100 WBC (Bld) 1.4 % Normal . [facility] Comment on above: Performed By: #### H EPATIC, LIPASE, BMP, CBC #### [address] Automated basophil countOrde red By: Elier Jackson on 02-05-2023 Basophils (Bld) [#/Vol] 0.1 10*3/uL Normal 0.0-0.2 [facility] Comment on above: Result Comment: PERF ORMED BY: [place] [address] PATHOLOGIST CLEAN ROOM OPERATOR FARNAZ ZULETA M.D. Performed By: #### H EPATIC, LIPASE, BMP, CBC #### [address] Automated blood monocyte cou ntOrdered By: Elier Jackson on 02-05-2023 Monocytes (Bld) [#/Vol] 0.7 10*3/uL Normal 0.0-0.8 [facility] Comment on above: Performed By: #### H EPATIC, LIPASE, BMP, CBC #### [address] [address] Automated eosinophil %Ordere d By: Elier Jackson on 02-05-2023 Eosinophils/100 WBC (Bld) 1.5 % Normal . [facility] Comment on above: Performed By: #### H EPATIC, LIPASE, BMP, CBC #### [address] Automated eosinophil countOr dered By: Elier Jackson on 02-05-2023 Eosinophils (Bld) [#/Vol] 0.1 10*3/uL Normal 0.0-0.45 [facility] Comment on above: Performed By: #### H EPATIC, LIPASE, BMP, CBC #### [address] Automated monocyte %Ordered By: Elier Jackson on 02-05-2023 Monocytes/100 WBC (Bld) 8.4 % Normal . [facility] Comment on above: Performed By: #### H EPATIC, LIPASE, BMP, CBC #### [address] Automated neutrophil %Ordere d By: Elier Jackson on 02-05-2023 Neutrophils/100 WBC (Bld) 44.4 % Normal . [facility] Comment on above: Performed By: #### H EPATIC, LIPASE, BMP, CBC #### [address] Basic Metabolic Panelon 01-12 Creatinine Clr Calc Pharmacy 115.62 Normal [facility] Comment on above: Performed By: #### H CGQNT #### [address] GFR/1.73 sq M.predicted MDRD (S/P/Bld) [Vol rate/Area] mL/min/{1.73_m2} Normal [facility] Comment on above: Performed By: #### H CGQNT #### [address] [address] [place] Bilirubin.direct [Mass/volum e] in Serum or PlasmaOrdered By: Elier Jackson on 02-05-2023 Bilirubin.direct [Mass/Vol] 0.10 mg/dL 0.03-0.18 [facility] Bilirubin.total [Mass/volume ] in Serum or PlasmaOrdered By: Elier Jackson on 02-05-2023 Bilirubin [Mass/Vol] 0.3 mg/dL Normal 0.3-1.0 [facility] Comment on above: Performed By: #### H CGQNT #### [facility] [address] [place] [address] Calcium [Mass/volume] in Ser um or PlasmaOrdered By: Elier Jackson on 02-05-2023 Calcium [Mass/Vol] 9.2 mg/dL Normal 8.6-10.3 [facility] Comment on above: Performed By: #### H CGQNT #### [facility] [address] [place] [address] Carbon dioxide, total [Moles /volume] in Serum or PlasmaOrdered By: Elier Jackson on 02-05-2023 CO2 [Moles/Vol] 21.5 mmol/L Normal 21.0-31.0 [facility] Comment on above: Performed By: #### H CGQNT #### [facility] [address] [place] [address] Chloride [Moles/volume] in S binu or PlasmaOrdered By: Elier Jackson on 02-05-2023 Chloride [Moles/Vol] 107 mmol/L Normal 98-107 [facility] Comment on above: Performed By: #### H CGQNT #### [facility] [address] [place] [address] Choriogonadotropin.beta subu nit [Units/volume] in Serum or PlasmaOrdered By: Elier Jackson on 02-05-2023 HCG.beta subunit Qn m[IU]/mL [facility] Comment on above: Approximate Approxim ate hCG Gestational Age Range (mIU/ml) (weeks)0.2-1 5-50 1-2 50-500 2-3 100-5,000 3-4 500-10,000 4-5 1,000-50,000 5-6 10,000-100,000 6-8 15,000-200,000 8-12 10,000-100,000 HCG.beta subunit Qn Negative [facility] Complete Blood Count Auto Di ffon 02-05-2023 Mean Corpuscular HGB Conc 31.8 g/dL Low 32.0-35.0 [facility] Comment on above: Performed By: #### H EPATIC, LIPASE, BMP, CBC #### [address] Monocytes/100 WBC (Bld) 17.33 % Normal 0.00-20.00 [facility] Comment on above: Performed By: #### H EPATIC, LIPASE, BMP, CBC #### [address] NRBC% 0.1 /100{WBC} Normal 0-0.5 [facility] Comment on above: Performed By: #### H EPATIC, LIPASE, BMP, CBC #### [address] Creatinine [Mass/volume] in Serum or PlasmaOrdered By: Elier Jackson on 02-05-2023 Creatinine [Mass/Vol] 0.71 mg/dL Normal 0.60-1.20 [facility] Comment on above: Performed By: #### H CGQNT #### [address] Erythrocyte distribution wid th [Ratio] by Automated countOrdered By: Elier Jackson on 02-05-2023 Erythrocyte distribution width (RBC) [Ratio] 15.9 % High 11.9-15.3 [facility] Comment on above: Performed By: #### H EPATIC, LIPASE, BMP, CBC #### [facility] [address] [place] [address] Erythrocytes [#/volume] in B lood by Automated countOrdered By: Elier Jackson on 02-05-2023 RBC (Bld) [#/Vol] 4.78 10*6/uL Normal 3.60-5.00 [facility] Comment on above: Performed By: #### H EPATIC, LIPASE, BMP, CBC #### [facility] [address] Glucose [Mass/volume] in Ser um or PlasmaOrdered By: Elier Jackson on 02-05-2023 Glucose [Mass/Vol] 99 mg/dL Normal 70-100 [facility] Comment on above: ADA recommended refe rence rangeRandom Glucose Reference Range is dependent on time and content of last meal. Glucose of more than 200 mg/dL in a nonstressed, ambulatory subject supports the diagnosis of Diabetes Mellitus. Result Comment: [place] om Glucose Reference Range is dependent on time and content of last meal. Glucose of more than 200 mg/dL in a nonstressed, ambulatory subject supports the diagnosis of Diabetes Mellitus. ADA recommended reference range Performed By: #### H CGQNT #### [address] HCG,Qualitative Serumon 01-12 HCG,Qualitative Serum Negative Normal [facility] Comment on above: Result Comment: PERF ORMED BY: [place] [address] PATHOLOGIST CLEAN ROOM OPERATOR FARNAZ ZULETA M.D. Performed By: #### U HCG, ADDONUAPLUS #### [facility] [address] [place] [address] HCG,Quantitativeon HCG,Quantitative < 0.60 Normal [facility] Comment on above: Result Comment: Appr oximate Approximate hCG Gestational Age Range (mIU/ml) (weeks) 0.2-1 5-50 1-2 50-500 2-3 100-5,000 3-4 500-10,000 4-5 1,000-50,000 5-6 10,000-100,000 6-8 15,000-200,000 8-12 10,000-100,000 PERFORMED BY: [address] [place] [address] PATHOLOGIST CLEAN ROOM OPERATOR FARNAZ ZULETA M.D. Performed By: #### H CGQNT #### [address] Hematocrit [Volume Fraction] of Blood by Automated countOrdered By: Elier Jackson on 02-05-2023 Hematocrit (Bld) [Volume fraction] 37.3 % Normal 34.0-46.4 [facility] Comment on above: Performed By: #### H EPATIC, LIPASE, BMP, CBC #### [address] Hemoglobin [Mass/volume] in BloodOrdered By: Elier Jackson on 02-05-2023 Hemoglobin (Bld) [Mass/Vol] 11.8 g/dL Normal 11.8-15.4 [facility] Comment on above: Performed By: #### H EPATIC, LIPASE, BMP, CBC #### [address] Hepatic Panelon 02-05-2023 Albumin [Mass/Vol] 4.2 g/dL Normal 3.5-5.7 [facility] Comment on above: Performed By: #### H CGQNT #### [address] Bilirubin,Indirect 0.2 mg/dL Normal [facility] Comment on above: Performed By: #### H CGQNT #### [address] Bilirubin.indirect [Mass/Vol] 0.10 mg/dL Normal 0.03-0.18 [facility] Comment on above: Performed By: #### H CGQNT #### [address] Leukocytes [#/volume] correc flo for nucleated erythrocytes in Blood by Automated counOrdered By: Elier Jackson on 02-05-2023 WBC corrected for nucl RBC Auto (Bld) [#/Vol] 8.1 10*3/uL 3.8-11.6 [facility] Leukocytes [#/volume] in Blo od by Automated countOrdered By: Elier Jackson on 02-05-2023 WBC (Bld) [#/Vol] 8.1 10*3/uL Normal 3.8-11.6 [facility] Comment on above: Performed By: #### H EPATIC, LIPASE, BMP, CBC #### [address] Lipase [Enzymatic activity/v olume] in Serum or PlasmaOrdered By: Elier Jackson on 02-05-2023 Lipase [Catalytic activity/Vol] 40.0 U/L Normal 11.0-82.0 [facility] Comment on above: Result Comment: PERF ORMED BY: [place] [address] PATHOLOGIST CLEAN ROOM OPERATOR FARNAZ ZULETA M.D. Performed By: #### H CGQNT #### [address] Lymphocytes [#/volume] in Bl ood by Automated countOrdered By: Elier Jackson on 02-05-2023 Lymphocytes (Bld) [#/Vol] 3.6 10*3/uL Normal 1.00-4.8 [facility] Comment on above: Performed By: #### H EPATIC, LIPASE, BMP, CBC #### [address] Lymphocytes/100 leukocytes i n Blood by Automated countOrdered By: Elier Jackson on 02-05-2023 Lymphocytes/100 WBC (Bld) 44.3 % Normal . [facility] Comment on above: Performed By: #### H EPATIC, LIPASE, BMP, CBC #### [address] MCH [Entitic mass] by Automa flo countOrdered By: Elier Jackson on 02-05-2023 MCH (RBC) [Entitic mass] 24.8 pg Normal 24.7-34.3 [facility] Comment on above: Performed By: #### H EPATIC, LIPASE, BMP, CBC #### [address] MCHC Auto (RBC) [Mass/Vol]Or dered By: Elier Jackson on 02-05-2023 MCHC (RBC) [Mass/Vol] 31.8 g/dL 32.0-35.0 [facility] MCV [Entitic volume] by Auto mated countOrdered By: Elier Jackson on 02-05-2023 MCV (RBC) [Entitic vol] 78.1 fL Low 80-100 [facility] Comment on above: Performed By: #### H EPATIC, LIPASE, BMP, CBC #### [facility] [address] Monocyte distribution width [Entitic volume] in Blood by AutomatedOrdered By: Elier Jackson on 02-05-2023 Monocyte distribution width Auto (Bld) [Entitic vol] 17.33 % 0.00-20.00 [facility] Neutrophils [#/volume] in Bl ood by Automated countOrdered By: Elier Jackson on 02-05-2023 Neutrophils (Bld) [#/Vol] 3.6 10*3/uL Normal 1.8-7.7 [facility] Comment on above: Performed By: #### H EPATIC, LIPASE, BMP, CBC #### [facility] [address] No Panel InformationOrdered By: Elier Jackson on 02-05-2023 Estimated GFR (CKD-EPI) > 60.0 mL/Min [facility] Creatinine Clearance (Chem 115.62 [facility] Nucleated erythrocytes [Pres ence] in Blood by Automated countOrdered By: Elier Jackson on 02-05-2023 Nucleated RBC Auto Ql (Bld) 0.1 /100{WBC} 0-0.5 [facility] Platelet mean volume [Entiti c volume] in Blood by Automated countOrdered By: Elier Jackson on 02-05-2023 Platelet mean volume (Bld) [Entitic vol] 8.0 fL Normal 6.3-10.7 [facility] Comment on above: Performed By: #### H EPATIC, LIPASE, BMP, CBC #### [facility] [address] [place] [address] [place] Platelets [#/volume] in Bloo d by Automated countOrdered By: Elier Jackson on 02-05-2023 Platelets (Bld) [#/Vol] 398 10*3/uL Normal 150-450 [facility] Comment on above: Performed By: #### H EPATIC, LIPASE, BMP, CBC #### [facility] [address] [place] [address] Potassium [Moles/volume] in Serum or PlasmaOrdered By: Elier Jackson on 02-05-2023 Potassium [Moles/Vol] 3.4 mmol/L Low 3.5-5.1 [facility] Comment on above: Performed By: #### H CGQNT #### [address] Protein [Mass/volume] in Ser um or PlasmaOrdered By: Elier Jackson on 02-05-2023 Protein [Mass/Vol] 7.2 g/dL Normal 6.4-8.9 [facility] Comment on above: Performed By: #### H CGQNT #### [address] Serum globulin measurement b y calculation (mass/volume)Ordered By: Elier Jackson on 02-05-2023 Globulin (S) [Mass/Vol] 3.0 g/dL Normal [facility] Comment on above: Performed By: #### H CGQNT #### [address] Serum or plasma albumin/glob ulin mass ratioOrdered By: Elier Jackson on 02-05-2023 Albumin/Globulin [Mass ratio] 1.4 {ratio} Normal [facility] Comment on above: Performed By: #### H CGQNT #### [facility] [address] [place] [address] Serum or plasma anion gap de terminationOrdered By: Elier Jackson on 02-05-2023 Anion gap [Moles/Vol] 11.9 mmol/L Normal 6.0-15.0 [facility] Comment on above: Performed By: #### H CGQNT #### [address] [place] [address] [facility] Serum or plasma non-glucuron idated bilirubin measurement (mass/volume)Ordered By: Elier Jackson on 02-05-2023 Bilirubin.indirect [Mass/Vol] 0.2 mg/dL [facility] Sodium [Moles/volume] in Ser um or PlasmaOrdered By: Elier Jackson on 02-05-2023 Sodium [Moles/Vol] 137 mmol/L Normal 136-145 [facility] Comment on above: Performed By: #### H CGQNT #### [facility] [address] [place], [place] [id number] [facility] Urea nitrogen [Mass/volume] in Serum or PlasmaOrdered By: Elier Jackson on 02-05-2023 Urea nitrogen [Mass/Vol] 6 mg/dL Low 7-25 [facility] Comment on above: Performed By: #### H CGQNT #### [facility] [address] [place] [address] GENITAL CULTUREon 08-01-2022 Genital Culture, Routine Final report Abnormal [facility] Comment on above: Result Comment: Spec imen stability note: A swab transport (ie., ESwab, Amies agar gel) received by the lab more than 24 hours after collection may result in reduced recovery of Neisseria gonorrhoeae (GC). (This is informational only and may not apply to this specimen.) Performed By: #### C XGENIT #### [facility] [address] [address] [address] Rod Ramirez Result 1 Comment Abnormal [facility] Comment on above: Result Comment: Beta [...] (CLSI) Performed By: #### C XGENIT #### [facility] [address] [address] [address] Rod Ramirez Result 2 Comment Normal [facility] Comment on above: Result Comment: Rout ine genital rashid. Light growth Performed By: #### C XGENIT #### [facility] [address] [place] [address] Dr. Rod Ramirez CBC AUTO DIFFon 07-28-2022 BASO # 0.0 103/ul Normal 0.0-0.[address] [facility] Comment on above: Performed By: #### C BC #### [facility] [address] [place] [address] Dr. Rod Ramirez Basophils/100 WBC (Bld) 0.4 % Normal 0.2-2.0 [facility] Comment on above: Performed By: #### C BC #### [facility] [address] [place] [address] Dr. Rod Ramirez EO # 0.1 103/ul Normal 0.0-0.[address] [facility] Comment on above: Performed By: #### C BC #### [facility] [address] [place] [address] Dr. Rod Ramirez Eosinophils/100 WBC (Bld) 1.5 % Normal 0.9-7.[address] [facility] Comment on above: Performed By: #### C BC #### [facility] [address] [place] [address] Dr. Rod Ramirez Erythrocyte distribution width (RBC) [Ratio] 12.9 % Normal 11.0-15.[address] [facility] Comment on above: Performed By: #### C BC #### [facility] [address] [place] [address] Dr. Rod Ramirez Hematocrit (Bld) [Volume fraction] 40.9 % Normal 36.0-48.[address] [facility] Comment on above: Performed By: #### C BC #### [facility] [address] [place] [address] Dr. Rod Ramirez Hemoglobin (Bld) [Mass/Vol] 13.7 g/dL Normal 12.0-16.[address] [facility] Comment on above: Performed By: #### C BC #### [facility] [address] [place] [address] Dr. Rod Ramirez IG # 0.02 10e3/ul Normal 0.00-0.[address] [facility] Comment on above: Performed By: #### C BC #### [facility] [address] [place] [address] Dr. Rod Ramirez IG % 0.3 % Normal 0.0-0.[address] [facility] Comment on above: Performed By: #### C BC #### [facility] [address] [place] [address] Dr. Rod Ramirez LYMPH # 1.6 103/ul Normal 1.2-3.[address] [facility] Comment on above: Performed By: #### C BC #### [facility] [address] [place] [address] Dr. Rod Ramirez Lymphocytes/100 WBC (Bld) 23.6 % Normal 20.5-60.[address] [facility] Comment on above: Performed By: #### C BC #### [facility] [address] [place] [address] Dr. Rod Ramirez MANUAL DIFF REQ NO Normal [facility] Comment on above: Performed By: #### C BC #### [facility] [address] [place] [address] Dr. Rod Ramirez MCH (RBC) [Entitic mass] 27.7 pg Normal 26.7-34.[address] [facility] Comment on above: Performed By: #### C BC #### [facility] [address] [place] [address] Dr. Rod Ramirez MCHC (RBC) [Mass/Vol] 33.5 g/dL Normal 29.9-35.[address] [facility] Comment on above: Performed By: #### C BC #### [facility] [address] [place] [address] Dr. Rod Ramirez MCV (RBC) [Entitic vol] 82.6 fL Normal 81.0-99.0 [facility] Comment on above: Performed By: #### C BC #### [facility] [address] [place] [address] Dr. Rod Ramirez MONO # 0.4 103/ul Normal 0.3-0.[address] [facility] Comment on above: Performed By: #### C BC #### [facility] [address] [address] [address] Rod Ramirez Monocytes/100 WBC (Bld) 6.4 % Normal 1.7-12.0 [facility] Comment on above: Performed By: #### C BC #### [facility] [address] [address] [address] Rod Ramirez NEUT # 4.6 103/ul Normal 1.4-6.[address] [facility] Comment on above: Performed By: #### C BC #### [facility] [address] [place] [address] Dr. Rod Ramirez Neutrophils/100 WBC (Bld) 67.8 % Normal 43.0-75.[address] [facility] Comment on above: Performed By: #### C BC #### [facility] [address] [place] [address] Dr. Rod Ramirez Platelet mean volume (Bld) [Entitic vol] 9.4 fL Critically low 9.5-13.[address] [facility] Comment on above: Performed By: #### C BC #### [facility] [address] [place] [address] Dr. Rod Ramirez PLT 439 103/ul Normal 150-450 [facility] Comment on above: Performed By: #### C BC #### [facility] [address] [place] [address] Dr. Rod Ramirez RBC 4.95 106/ul Normal 4.20-5.[address] [facility] Comment on above: Performed By: #### C BC #### [facility] [address] [place] [address] Dr. Rod Ramirez WBC 6.7 103/ul Normal 4.0-11.[address] [facility] Comment on above: Performed By: #### C BC #### [facility] [address] [place] [address] Dr. Rod Ramirez PREG HCG QUALon 07-28-2022 , QUAL Negative Normal NEGATIVE [facility] Comment on above: Performed By: #### P REG #### [facility] [address] [address] [address] Rod Ramirez PROF CHEM 8 (BAS METB)on Anion gap [Moles/Vol] 15.5 mmol/L Normal [facility] Comment on above: Performed By: #### B MP #### [facility] [address] [address] [address] Rod Ramirez Calcium [Mass/Vol] 9.0 mg/dL Normal 8.5-10.1 [facility] Comment on above: Performed By: #### B MP #### [facility] [address] [address] [address] Rod Ramirez Chloride [Moles/Vol] 103 mmol/L Normal 98-[address] [facility] Comment on above: Performed By: #### B MP #### [facility] [address] [place] [address] Dr. Rod Ramirez CO2 [Moles/Vol] 23.9 mmol/L Normal 21.0-32.0 [facility] Comment on above: Performed By: #### B MP #### [facility] [address] [address] [address] Rod Ramirez Creatinine [Mass/Vol] 0.79 mg/dL Normal 0.55-1.[address] [facility] Comment on above: Performed By: #### B MP #### [facility] [address] [address] [address] Rod Ramirez EGFR-AF IRANIAN >60 Normal >=60 [facility] Comment on above: Performed By: #### B MP #### [facility] [address] [address] [address] Rod Ramirez EGFR-NON AF IRANIAN >60 Normal >=[address] [facility] Comment on above: Performed By: #### B MP #### [facility] [address] [address] [address] Rod Ramirez Glucose [Mass/Vol] 108 mg/dL Critically high 74-106 [facility] Comment on above: Performed By: #### B MP #### [facility] [address] [place], [place] [address] Dr. Rod Ramirez Potassium [Moles/Vol] 3.4 mmol/L Critically low 3.5-5.[address] [facility] Comment on above: Performed By: #### B MP #### [facility] [address] [place], [place] [address] Dr. Rod Ramirez Sodium [Moles/Vol] 139 mmol/L Normal 136-145 [facility] Comment on above: Performed By: #### B MP #### [facility] [address] [place], [place] [address] Dr. Rod Ramirez Urea nitrogen [Mass/Vol] 7.0 mg/dL Normal 7.0-18.[address] [facility] Comment on above: Performed By: #### B MP #### [facility] [address] [place], [place] [address] Dr. Rod Ramirez Urea nitrogen/Creatinine [Mass ratio] 8.9 mg/mg Normal [facility] Comment on above: Performed By: #### B MP #### [facility] [address] [place], [place] [address] Dr. Rod Ramirez US PELVIS TRANSVAGon 023 [...] AUBREY BURKS Date: 2022-07-28 07:46 Normal [facility] WET PREPon 07-28-2022 CLUE CELLS NONE SEEN Normal NONE SEEN [facility] Comment on above: Performed By: #### W P #### [facility] [address] [address] [address] Rod Ramirez FUNGAL ELEMENTS NONE SEEN Normal NONE SEEN [facility] Comment on above: Performed By: #### W P #### [facility] [address] [address] [address] Rod Ramirez RBC -WET PREP RARE Abnormal NONE SEEN [facility] Comment on above: Performed By: #### W P #### [facility] [address] [address] [address] Rod Ramirez TRICHOMONAS NONE SEEN Normal NONE SEEN [facility] Comment on above: Performed By: #### W P #### [facility] [address] [address] [address] Rod Ramirez WBC- WET PREP RARE Abnormal NONE SEEN [facility] Comment on above: Performed By: #### W P #### [facility] [address] [address] [address] Rod SAXENA PREP BACTERIA NONE SEEN Normal NONE SEEN [facility] Comment on above: Performed By: #### W P #### [facility] [address] [address] [address] Rod Morales 04-30-2022 FRIDA Telephone (HEMASA) LIVIA NOYOLA ([id number]) 1985 F Date Time Provider Department 04/30/22 [...] [D50.0] Order(s):COMP METABOLIC PANEL [SQCMP] Order #: [id number] FUTURE Prescriptions as of 05/03/2022 - ALPRAZolam [...] Status:Closed by GIL NI on 05/03/22 Normal [facility] Anisocytosis LM Ql (Bld)Orde red By: Yevgeniy Cabrera on 04-28-2022 Anisocytosis Ql (Bld) Marked [facility] Automated erythrocytes count in urine sediment (number/area)Ordered By: Yevgeniy Cabrera on 04-28-2022 RBC Auto (Urine sed) [#/Area] None seen [HPF] 0-4 [facility] Automated leukocytes count i n urine sediment (number/area)Ordered By: Yevgeniy Cabrera on 04-28-2022 WBC Auto (Urine sed) [#/Area] 3-4 [HPF] 0-4 [facility] Basophils Auto (Bld) [#/Vol] Ordered By: Yevgeniy Cabrera on 04-28-2022 Basophils (Bld) [#/Vol] 0.1 10*3/uL 0.0-0.2 [facility] Basophils/100 WBC Auto (Bld) Ordered By: Yevgeniy Cabrera on 04-28-2022 Basophils/100 WBC (Bld) 1.0 % . [facility] Bilirubin Test strip Ql (U)O rdered By: Yevgeniy Cabrera on 04-28-2022 Bilirubin Ql (U) Negative Negative [facility] Body fluid albumin measureme nt (mass/volume)Ordered By: Yevgeniy Cabrera on 04-28-2022 Albumin (Body fld) [Mass/Vol] 3.8 g/dL 3.2-5.5 [facility] Color Auto (U)Ordered By: Marcus Cabrera on 04-28-2022 Color (U) Yellow Yellow [facility] Creatinine and Glomerular fi ltration rate.predicted panel (S/P/Bld)Ordered By: Yevgeniy Cabrera on 04-28-2022 Creatinine [Mass/Vol] 0.62 mg/dL 0.44-1.03 [facility] Eosinophils Auto (Bld) [#/Vo l]Ordered By: Yevgeniy Cabrera on 04-28-2022 Eosinophils (Bld) [#/Vol] 0.1 10*3/uL 0.0-0.45 [facility] Eosinophils/100 WBC Auto (Bl d)Ordered By: Yevgeniy Cabrera on 04-28-2022 Eosinophils/100 WBC (Bld) 1.0 % . [facility] Erythrocyte distribution wid th Auto (RBC) [Ratio]Ordered By: Yevgeniy Cabrera on 04-28-2022 Erythrocyte distribution width (RBC) [Ratio] 27.1 % 11.9-15.3 [facility] Estimated glomerular filtrat ion rate (GFR) non- AmericanOrdered By: Yevgeniy Cabrera on 04-28-2022 GFR/1.73 sq M.predicted among non-blacks MDRD (S/P/Bld) [Vol rate/Area] > 60 mL/Min [facility] Globulin Calc (S) [Mass/Vol] Ordered By: Yevgeniy Cabrera on 04-28-2022 Globulin (S) [Mass/Vol] 3.1 g/dL [facility] HCG ( test) IA.rapi d Ql (U)Ordered By: Yevgeniy Cabrera on 04-28-2022 HCG ( test) Ql (U) Negative [facility] Hematocrit Auto (Bld) [Volum e fraction]Ordered By: Yevgeniy Cabrera on 04-28-2022 Hematocrit (Bld) [Volume fraction] 39.4 % 34.0-46.4 [facility] Hemoglobin [Mass/volume] in BloodOrdered By: Yevgeniy Cabrera on 04-28-2022 Hemoglobin (Bld) [Mass/Vol] 12.3 g/dL 11.8-15.4 [facility] Hypochromia LM Ql (Bld)Order ed By: Yevgeniy Cabrera on 04-28-2022 Hypochromia Ql (Bld) Slight [facility] Ketones Auto test strip (U) [Mass/Vol]Ordered By: Yevgeniy Cabrera on 04-28-2022 Ketones (U) [Mass/Vol] Negative Negative Fi [facility] - Hematology and Cell countsOrdered By: Yevgeniy Cabrera on 04-28-2022 Nucleated RBC/100 WBC (Bld) [Ratio] 0.0 % 0-0.5 [facility] Laboratory - UrinalysisOrder ed By: Yevgeniy Cabrera on 04-28-2022 Hyaline casts LM Ql (Urine sed) None seen [LPF] 0-8 [facility] Leukocytes [#/volume] in Blo od by Automated countOrdered By: Yevgeniy Cabrera on 04-28-2022 WBC (Bld) [#/Vol] 7.9 10*3/uL 4.5-11.0 [facility] Lymphocytes Auto (Bld) [#/Vo l]Ordered By: Yevgeniy Cabrera on 04-28-2022 Lymphocytes (Bld) [#/Vol] 2.3 10*3/uL 1.00-4.8 [facility] Lymphocytes/100 WBC Auto (Bl d)Ordered By: Yevgeniy Cabrera on 04-28-2022 Lymphocytes/100 WBC (Bld) 28.9 % . [facility] MCH Auto (RBC) [Entitic mass ]Ordered By: Yevgeniy Cabrera on 04-28-2022 MCH (RBC) [Entitic mass] 23.3 pg 24.7-34.3 [facility] MCHC Auto (RBC) [Mass/Vol]Or dered By: Yevgeniy Cabrera on 04-28-2022 MCHC (RBC) [Mass/Vol] 31.3 g/dL 32.0-35.0 [facility] MCV Auto (RBC) [Entitic vol] Ordered By: Yevgeniy Cabrera on 04-28-2022 MCV (RBC) [Entitic vol] 74.5 fL 80-100 F [facility] Monocytes Auto (Bld) [#/Vol] Ordered By: Yevgeniy Cabrera on 04-28-2022 Monocytes (Bld) [#/Vol] 0.4 10*3/uL 0.0-0.8 [facility] Monocytes/100 WBC Auto (Bld) Ordered By: Yevgeniy Cabrera on 04-28-2022 Monocytes/100 WBC (Bld) 4.5 % . F [facility] Neutrophils Auto (Bld) [#/Vo l]Ordered By: Yevgeniy Cabrera on 04-28-2022 Neutrophils (Bld) [#/Vol] 5.1 10*3/uL 1.8-7.7 [facility] Neutrophils/100 WBC Auto (Bl d)Ordered By: Yevgeniy Cabrera on 04-28-2022 Neutrophils/100 WBC (Bld) 64.6 % . [facility] Nitrite Test strip Ql (U)Ord ered By: Yevgeniy Cabrera on 04-28-2022 Nitrite Ql (U) Negative Negative [facility] No Panel InformationOrdered By: Yevgeniy Cabrera on 04-28-2022 Estimated GFR () > 60 mL/Min [facility] Comment on above: GFR estimated refere nce range: According to KDOQI guidelines, <60 ml/min/1.73m2 is sufficient to diagnose a patient with chronic kidney disease. Pharmacy Creatinine Clearance (Chem 132.36 [facility] Slides for Pathologist Review Ordered path review [facility] Ovalocyte detectionOrdered B y: Yevgeniy Cabrera on 04-28-2022 Ovalocytes LM Ql (Bld) Moderate [facility] Platelet adequacy [Presence] in Blood by Light microscopyOrdered By: Yevgeniy Cabrera on 04-28-2022 Platelets LM Ql (Bld) Normal Normal [facility] Platelet mean volume Auto (B ld) [Entitic vol]Ordered By: Yevgeniy Cabrera on 04-28-2022 Platelet mean volume (Bld) [Entitic vol] 7.4 fL 6.3-10.7 [facility] Platelet morphology finding [Identifier] in BloodOrdered By: Yevgeniy Cabrera on 04-28-2022 Platelet morphology finding Nom (Bld) Normal Normal [facility] Platelets Auto (Bld) [#/Vol] Ordered By: Yevgeniy Cabrera on 04-28-2022 Platelets (Bld) [#/Vol] 329 10*3/uL 150-450 [facility] Poikilocytosis [Presence] in Blood by Light microscopyOrdered By: Yevgeniy Cabrera on 04-28-2022 Poikilocytosis LM Ql (Bld) Moderate [facility] Polychromasia [Presence] in Blood by Light microscopyOrdered By: Yevgeniy Cabrera on 04-28-2022 Polychromasia LM Ql (Bld) Slight [facility] Protein Auto test strip (U) [Mass/Vol]Ordered By: Yevgeniy Cabrera on 04-28-2022 Protein (U) [Mass/Vol] Negative Negative [facility] Protein [Mass/volume] in Ser um or PlasmaOrdered By: Yevgeniy Cabrera on 04-28-2022 Protein [Mass/Vol] 6.9 g/dL 6.1-7.9 [facility] RBC Auto (Bld) [#/Vol]Ordere d By: Yevgeniy Cabrera on 04-28-2022 RBC (Bld) [#/Vol] 5.29 10*6/uL 3.60-5.00 [facility] RBC morphologyOrdered By: Marcus Cabrera on 04-28-2022 RBC morphology finding Nom (Bld) N/A [facility] Serum or plasma alanine syed otransferase measurement without P-5'-P (enzymatic activiOrdered By: Yevgeniy Cabrera on 04-28-2022 ALT No additional P-5'-P [Catalytic activity/Vol] 43 U/L 10-60 [facility] Serum or plasma albumin/glob ulin mass ratioOrdered By: Yevgeniy Cabrera on 04-28-2022 Albumin/Globulin [Mass ratio] 1.2 {ratio} [facility] Serum or plasma alkaline zeeshan sphatase measurement (enzymatic activity/volume)Ordered By: Yevgeniy Cabrera on 04-28-2022 ALP [Catalytic activity/Vol] 65 U/L 32-92 [facility] Serum or plasma anion gap de terminationOrdered By: Yevgeniy Cabrera on 04-28-2022 Anion gap [Moles/Vol] 14.6 mmol/L 6.0-15.0 [facility] Serum or plasma aspartate am inotransferase measurement (enzymatic activity/volume)Ordered By: Yevgeniy Cabrera on 04-28-2022 AST [Catalytic activity/Vol] 26 U/L 10-42 [facility] Serum or plasma calcium donaldo urement (mass/volume)Ordered By: Yevgeniy Cabrera on 04-28-2022 Calcium [Mass/Vol] 9.3 mg/dL 8.2-10.2 [facility] Serum or plasma chloride claudia surement (moles/volume)Ordered By: Yevgeniy Cabrera on 04-28-2022 Chloride [Moles/Vol] 105 mmol/L 95-114 [facility] Serum or plasma glucose donaldo urement (mass/volume)Ordered By: Yevgeniy Cabrera on 04-28-2022 Glucose [Mass/Vol] 112 mg/dL 70-100 [facility] Comment on above: ADA recommended refe rence rangeRandom Glucose Reference Range is dependent on time and content of last meal. Glucose of more than 200 mg/dL in a nonstressed, ambulatory subject supports the diagnosis of Diabetes Mellitus. Serum or plasma potassium me asurement (moles/volume)Ordered By: Yevgeniy Cabrera on 04-28-2022 Potassium [Moles/Vol] 3.7 mmol/L 3.5-5.1 [facility] Serum or plasma sodium measu rement (moles/volume)Ordered By: Yevgeniy Cabrera on 04-28-2022 Sodium [Moles/Vol] 137 mmol/L 136-146 [facility] Serum or plasma total biliru bin measurement (mass/volume)Ordered By: Yevgeniy Cabrera on 04-28-2022 Bilirubin [Mass/Vol] 0.5 mg/dL 0.3-1.2 [facility] Serum or plasma total carbon dioxide measurement (moles/volume)Ordered By: Yevgeniy Cabrera on 04-28-2022 CO2 [Moles/Vol] 21.1 mmol/L 22.0-30.0 [facility] Serum or plasma urea nitroge n measurement (mass/volume)Ordered By: Yevgeniy Cabrera on 04-28-2022 Urea nitrogen [Mass/Vol] 5 mg/dL 03-05 [facility] Specific gravity Auto test s trip (U) [Rel density]Ordered By: Yevgeniy Cabrera on 04-28-2022 Specific gravity (U) [Rel density] 1.005 1.001-1.030 [facility] Squamous epithelial cells de tection in urine sediment by light microscopyOrdered By: Yevgeniy Cabrera on 04-28-2022 Epithelial cells.squamous LM Ql (Urine sed) 0-1 [HPF] 0-2 [facility] Teardrop cell detectionOrder ed By: Yevgeniy Cabrera on 04-28-2022 Dacrocytes LM Ql (Bld) Slight [facility] Urine bacteria detection by automated methodOrdered By: Yevgeniy Cabrera on 04-28-2022 Bacteria Auto Ql (U) None seen None Seen [facility] Urine clarity by refractomet ry automatedOrdered By: Yevgeniy Cabrera on 04-28-2022 Clarity Refractometry automated (U) Cloudy Clear [facility] Urine glucose measurement by automated test strip (mass/volume)Ordered By: Yevgeniy Cabrera on 04-28-2022 Glucose Auto test strip (U) [Mass/Vol] Normal mg/dL Normal [facility] Urine hemoglobin detection b y automated test stripOrdered By: Yevgeniy Cabrera on 04-28-2022 Hemoglobin Auto test strip Ql (U) Negative Negative [facility] Urine leukocyte esterase det ection by automated test stripOrdered By: Yevgeniy Cabrera on 04-28-2022 Leukocyte esterase Auto test strip Ql (U) 1+ Negative [facility] Urobilinogen Auto test strip (U) [Mass/Vol]Ordered By: Yevgeniy Cabrera on 04-28-2022 Urobilinogen (U) [Mass/Vol] Normal mg/dL Normal [facility] pH Auto test strip (U)Ordere d By: Yevgeniy Cabrera on 04-28-2022 pH (U) 6.5 [pH] 5.0-9.0 [facility] ALLIED HEALTHon 04-09-2022 ALLIED HEALTH HNO ID: [id number] Author: Stephenie Suh, 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 Service: ? 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 Allergies As of Date: 03/19/2022 Noted Allergy Reaction MORPHINE 06/20/2018 14 - Other: See Comments Comments: Spasms Date Reviewed: 03/10/2022 Reviewed by: Gil Ni APRN.ASSOCIATE WEB DEVELOPER - Fully Assessed Reason for Visit: Benefits Investigation [8598] Prescriptions as of 03/19/2022 - ALPRAZolam (XANAX) [...] of iron [K90.9] 10/27/2020 Encounter Status:Closed by [facility] DLEMAR, SPARKLE Chicas on 03/19/22 [facility] 03-15-2022 [place] Telephone (HEM[place]) LIVIA NOYOLA ([id number]) 1985 F Date Time Provider Department 03/15/22 [...] Date Reviewed: 03/10/2022 Reviewed by: Gil Ni APRN.[facility] - Fully Assessed Reason for Visit: Social [...] Status:Closed by SHARON SAAVEDRA on 03/15/22 Normal [facility] CBC W Auto Differential pane l (Bld)on 03-10-2022 Basophils (Bld) [#/Vol] 0.05 10*3/uL Normal <0.11 [facility] Comment on above: Order Comment: Speci men Type: BLOOD SPECIMEN Ordering Facility: [facility] Address: [address] [place] [address] Performed By: #### 5 7021-8 #### [facility] CLIA [id number] [address] [place] [address]303 Basophils/100 WBC (Bld) 0.8 % Normal [facility] Comment on above: Order Comment: Speci men Type: BLOOD SPECIMEN Ordering Facility: [facility] Address: [address] [place] [address] Performed By: #### 5 7021-8 #### [facility] CLIA [id number] [address] [place] [address] 60614 Differential cell count method Nom (Bld) Auto Normal [facility] Comment on above: Order Comment: Speci men Type: BLOOD SPECIMEN Ordering Facility: [facility] Address: [address] [place] [address] Performed By: #### 5 7021-8 #### [facility] CLIA [id number] [address] [place] [address] 26562 Eosinophils (Bld) [#/Vol] 0.15 10*3/uL Normal <0.46 [facility] Comment on above: Order Comment: Speci men Type: BLOOD SPECIMEN Ordering Facility: [facility] Address: [address] [address] Performed By: #### 5 7021-8 #### [facility] CLIA [id number] [address] [place] [address] Eosinophils/100 WBC (Bld) 2.3 % Normal [facility] Comment on above: Order Comment: Speci men Type: BLOOD SPECIMEN Ordering Facility: [facility] Address: [address] [place] [address] Performed By: #### 5 7021-8 #### [facility] CLIA [id number] [address] [place] [address]5835 Erythrocyte distribution width (RBC) [Ratio] 17.4 % High 11.5-15.0 [facility] Comment on above: Order Comment: Speci men Type: BLOOD SPECIMEN Ordering Facility: [facility] Address: [address] [place] [address] Performed By: #### 5 7021-8 #### [facility] CLIA [id number] [address] [place] [address] 92423 Hematocrit (Bld) [Volume fraction] 29.4 % Low 36.0-46.0 [facility] Comment on above: Order Comment: Speci men Type: BLOOD SPECIMEN Ordering Facility: [facility] Address: [address] [place] [address] Performed By: #### 5 7021-8 #### [facility] CLIA [id number] [address] [place] [address]24 Hemoglobin (Bld) [Mass/Vol] 8.5 g/dL Low 11.5-15.5 [facility] Comment on above: Order Comment: Speci men Type: BLOOD SPECIMEN Ordering Facility: [facility] Address: [address] [place] [address] Performed By: #### 5 7021-8 #### [facility] CLIA [id number] [address] [place] [address] 12766 IMMATURE GRAN % 0.3 % Normal [facility] Comment on above: Order Comment: Speci men Type: BLOOD SPECIMEN Ordering Facility: [facility] Address: [address] Performed By: #### 5 7021-8 #### [facility] CLIA [id number] [address] [place] [address] IMMATURE GRAN ABS <0.03 Normal <0.10 [facility] Comment on above: Order Comment: Speci men Type: BLOOD SPECIMEN Ordering Facility: [facility] Address: [address] [place] [address] Performed By: #### 5 7021-8 #### [facility] CLIA [id number] [address] [place] [address] 20564 Lymphocytes (Bld) [#/Vol] 3.62 10*3/uL Normal 1.00-4.00 [facility] Comment on above: Order Comment: Speci men Type: BLOOD SPECIMEN Ordering Facility: [facility] Address: [address] [place] [address] Performed By: #### 5 7021-8 #### [facility] CLIA [id number] [address] [place] [address] 60673 Lymphocytes/100 WBC (Bld) 54.8 % Normal [facility] Comment on above: Order Comment: Speci men Type: BLOOD SPECIMEN Ordering Facility: [facility] Address: [address] [place] [address] Performed By: #### 5 7021-8 #### [facility] CLIA [id number] [address] [place] [address] 16741 MCH (RBC) [Entitic mass] 20.3 pg Low 26.0-34.0 [facility] Comment on above: Order Comment: Speci men Type: BLOOD SPECIMEN Ordering Facility: [facility] Address: [address] [place], [place] [id number] Performed By: #### 5 7021-8 #### [facility] CLIA [id number] [address] [place] [address] 74189 MCHC (RBC) [Mass/Vol] 28.9 g/dL Low 30.5-36.0 [facility] Comment on above: Order Comment: Speci men Type: BLOOD SPECIMEN Ordering Facility: [facility] Address: [address] [place], [place] [address] Performed By: #### 5 7021-8 #### [facility] CLIA [id number] [address] [place] [address] 64457 MCV (RBC) [Entitic vol] 70.3 fL Low 80.0-100.0 C [facility] Comment on above: Order Comment: Speci men Type: BLOOD SPECIMEN Ordering Facility: [facility] Address: [address] [place], [place] [address] Performed By: #### 5 7021-8 #### [facility] CLIA [id number] [address] [place] [address] 48011 Monocytes (Bld) [#/Vol] 0.38 10*3/uL Normal <0.87 [facility] Comment on above: Order Comment: Speci men Type: BLOOD SPECIMEN Ordering Facility: [facility] Address: [address] [place], [place] [phone] Performed By: #### 5 7021-8 #### [facility] CLIA [id number] [address] [place] [address] 17902 Monocytes/100 WBC (Bld) 5.7 % Normal C [facility] Comment on above: Order Comment: Speci men Type: BLOOD SPECIMEN Ordering Facility: [facility] Address: [address] [place], [place] [address] Performed By: #### 5 7021-8 #### [facility] CLIA [id number] [address] [place] [address] 30062 Neutrophils (Bld) [#/Vol] 2.39 10*3/uL Normal 1.45-7.50 [facility] Comment on above: Order Comment: Speci men Type: BLOOD SPECIMEN Ordering Facility: [facility] Address: [address] [place], [place] [address] Performed By: #### 5 7021-8 #### [facility] CLIA [id number] [address] [place] [address] Neutrophils/100 WBC (Bld) 36.1 % Normal [facility] Comment on above: Order Comment: Speci men Type: BLOOD SPECIMEN Ordering Facility: [facility] Address: [address] [place] [address] Performed By: #### 5 7021-8 #### [facility] CLIA [id number] [address] [place] [address] 82240 Nucleated RBC (Bld) [#/Vol] 10*3/uL Normal <0.01 [facility] Comment on above: Order Comment: Speci men Type: BLOOD SPECIMEN Ordering Facility: [facility] Address: [address] [place] [address] Performed By: #### 5 7021-8 #### [facility] CLIA [id number] [address] [place] [address] 04263 Nucleated RBC/100 WBC (Bld) [Ratio] 0.0 /100 WBC Normal [facility] Comment on above: Order Comment: Speci men Type: BLOOD SPECIMEN Ordering Facility: [facility] Address: [address] [place] [address] Performed By: #### 5 7021-8 #### [facility] CLIA [id number] [address] [place] [address] 69463 Platelet mean volume (Bld) [Entitic vol] 8.8 fL Low 9.0-12.7 [facility] Comment on above: Order Comment: Speci men Type: BLOOD SPECIMEN Ordering Facility: [facility] Address: [address] [place] [address] Performed By: #### 5 7021-8 #### [facility] CLIA [id number] [address] [place] [address] 54511 Platelets (Bld) [#/Vol] 419 10*3/uL High 150-400 [facility] Comment on above: Order Comment: Speci men Type: BLOOD SPECIMEN Ordering Facility: [facility] Address: [address] [place], [place] [address] Performed By: #### 5 7021-8 #### [facility] CLIA [id number] [address] [place] [address] 16541 RBC (Bld) [#/Vol] 4.18 10*6/uL Normal 3.90-5.20 [facility] Comment on above: Order Comment: Speci men Type: BLOOD SPECIMEN Ordering Facility: [facility] Address: [address] [place] [address] Performed By: #### 5 7021-8 #### [facility] CLIA [id number] [address] [place] [address] 57253 WBC (Bld) [#/Vol] 6.61 10*3/uL Normal 3.70-11.00 [facility] Comment on above: Order Comment: Speci men Type: BLOOD SPECIMEN Ordering Facility: [facility] Address: [address] [place] [address] Performed By: #### 5 7021-8 #### [facility] CLIA [id number] [address] [place] [address] 30331 CNOVSPon 03-10-2022 [facility] Visit (SP) Office (HEMASA) LIVIA NOYOLA ([id number]) 1985 F Date Time Provider Department 03/10/22 2:00 PM GIL NI During your visit today, we recorded the following information about you: Temperature Pulse Respiration Blood pressure 97.9 degrees 95/minute 16/minute 130/75 Weight Height 83.4 kg 1.651 m Gil Ni APRN.CNP 03/10/2022 2:25 PM Signed NAME: Livia Noyola NO.: [id number] DATE OF SERVICE: March 10, 2022 (Elements [...] 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 Recent laboratories from [facility] October 04, 2020 show hemoglobin of 11.6 [...] to chronic (more content not included)... Normal [facility] Comprehensive metabolic 2000 panelon 03-10-2022 Albumin [Mass/Vol] 4.0 g/dL Normal 3.9-4.9 [facility] Comment on above: Order Comment: Speci men Type: BLOOD SPECIMEN Ordering Facility: [facility] Address: [address] [place] [address] Performed By: #### 2 4323-8 #### [facility] CLIA [id number] [address] [place] [address] 36830 ALP [Catalytic activity/Vol] 55 U/L Normal 34-123 [facility] Comment on above: Order Comment: Speci men Type: BLOOD SPECIMEN Ordering Facility: [facility] Address: [address] [place] [address] Performed By: #### 2 4323-8 #### [facility] CLIA [id number] [address] [place] [address] 45925 ALT [Catalytic activity/Vol] 12 U/L Normal 7-38 [facility] Comment on above: Order Comment: Speci men Type: BLOOD SPECIMEN Ordering Facility: [facility] Address: [address] [place] [address] Performed By: #### 2 4323-8 #### [facility] CLIA [id number] [address] [place] [address] 52699 Anion gap [Moles/Vol] 9 mmol/L Normal 9-18 [facility] Comment on above: Order Comment: Speci men Type: BLOOD SPECIMEN Ordering Facility: [facility] Address: [address] [address] Performed By: #### 2 4323-8 #### [facility] CLIA [id number] [address] [place] [address] 86177 AST [Catalytic activity/Vol] 14 U/L Normal 13-35 [facility] Comment on above: Order Comment: Speci men Type: BLOOD SPECIMEN Ordering Facility: [facility] Address: [address] [address] Performed By: #### 2 4323-8 #### [facility] CLIA [id number] [address] [place] [address] Bilirubin [Mass/Vol] 0.3 mg/dL Normal 0.2-1.3 [facility] Comment on above: Order Comment: Speci men Type: BLOOD SPECIMEN Ordering Facility: [facility] Address: [address] [place] [address] Performed By: #### 2 4323-8 #### [facility] CLIA [id number] [address] [place] [address] 50866 Calcium [Mass/Vol] 8.8 mg/dL Normal 8.5-10.2 [facility] Comment on above: Order Comment: Speci men Type: BLOOD SPECIMEN Ordering Facility: [facility] Address: [address] [place] [address] Performed By: #### 2 4323-8 #### [facility] CLIA [id number] [address] [place] [address] 06950 Chloride [Moles/Vol] 105 mmol/L Normal 97-105 [facility] Comment on above: Order Comment: Speci men Type: BLOOD SPECIMEN Ordering Facility: [facility] Address: [address] [place] [address] Performed By: #### 2 4323-8 #### [facility] CLIA [id number] [address] [place] [address] 23178 CO2 [Moles/Vol] 24 mmol/L Normal 22-30 [facility] Comment on above: Order Comment: Speci men Type: BLOOD SPECIMEN Ordering Facility: [facility] Address: [address] [address] Performed By: #### 2 4323-8 #### [facility] CLIA [id number] [address] [place] [address] 12431 Creatinine [Mass/Vol] 0.65 mg/dL Normal 0.58-0.96 [facility] Comment on above: Order Comment: Roselyn conway Type: BLOOD SPECIMEN Ordering Facility: [facility] Address: [address] [id number] Performed By: #### 2 4323-8 #### [facility] CLIA [id number] [address] [place] [address] ESTIMATED GLOMERULAR FILTRATION RATE 118 mL/min/1.73m??? Normal >=60 [facility] Comment on above: Order Comment: Roselyn conway Type: BLOOD SPECIMEN Ordering Facility: [facility] Address: [address] [place], [place] [id number] Result Comment: Shelley mated Glomerular Filtration Rate [...] GFR. Performed By: #### 2 4323-8 #### [facility] CLIA [id number] [address] [place] [address] Glucose [Mass/Vol] 109 mg/dL High 74-99 [facility] Comment on above: Order Comment: Roselyn conway Type: BLOOD SPECIMEN Ordering Facility: [facility] Address: [address] [place], [place] [phone] Result Comment: The [place] Diabetes Association (ADA) provides guidance for cutoff [...] Standards of Medical Care in Diabetes 2016, [place] Diabetes Association. Diabetes Care. 2016.39(Suppl 1). Performed By: #### 2 4323-8 #### [facility] CLIA [id number] [address] [place] [address] Potassium [Moles/Vol] 3.4 mmol/L Low 3.7-5.1 [facility] Comment on above: Order Comment: Speci men Type: BLOOD SPECIMEN Ordering Facility: [facility] Address: [address] [place] [address] Performed By: #### 2 4323-8 #### [facility] CLIA [id number] [address] [place] [address] Protein [Mass/Vol] 6.5 g/dL Normal 6.3-8.0 [facility] Comment on above: Order Comment: Speci men Type: BLOOD SPECIMEN Ordering Facility: [facility] Address: [address] [place] [address] Performed By: #### 2 4323-8 #### [facility] CLIA [id number] [address] [place] [address] Sodium [Moles/Vol] 138 mmol/L Normal 136-144 [facility] Comment on above: Order Comment: Speci men Type: BLOOD SPECIMEN Ordering Facility: [facility] Address: [address] [place] [address] Performed By: #### 2 4323-8 #### [facility] CLIA [id number] [address] [place] [address] Urea nitrogen [Mass/Vol] 8 mg/dL Normal 7-21 [facility] Comment on above: Order Comment: Speci men Type: BLOOD SPECIMEN Ordering Facility: [facility] Address: [address] [place] [address] Performed By: #### 2 4323-8 #### [facility] CLIA [id number] [address] [place] [address] Ferritin SerPl-ncon 2021 Ferritin [Mass/Vol] 5.4 ng/mL Low 14.7-205.1 [facility] Comment on above: Order Comment: Speci men Type: BLOOD SPECIMEN Ordering Facility: [facility] Address: [address] [place] [address] Performed By: #### 5 0190-8, 2131-9, 2283-8, 6-4 #### [facility] CLIA [id number] [address] [place] [address] [place] Folate SerPl-mCncon 03-10-20 Folate [Mass/Vol] 8.7 ng/mL Normal >4.7 [facility] Comment on above: Order Comment: Speci men Type: BLOOD SPECIMEN Ordering Facility: [facility] Address: [address] [place] [address] Performed By: #### 5 0190-8, 9, 2283-8, 6-4 #### [facility] CLIA [id number] [address] [place] [address] [place] Iron and Iron binding capaci ty panel 03-10-2022 Iron [Mass/Vol] 17 ug/dL Low 41-186 [facility] Comment on above: Order Comment: Speci men Type: BLOOD SPECIMEN Ordering Facility: [facility] Address: [address] [place] [address] Performed By: #### 5 0190-8, 9, 2283-8, 2275-4 #### [facility] CLIA [id number] [address] [place] [address] [place] Iron binding capacity [Mass/Vol] 422 ug/dL High 232-386 [facility] Comment on above: Order Comment: Speci men Type: BLOOD SPECIMEN Ordering Facility: [facility] Address: [address] [place] [address] Performed By: #### 5 0190-8, 2131-9, 4-8, 6-4 #### [facility] CLIA [id number] [address] [place] [address] [facility] Iron/TIBC [Molar ratio] 4.0 % Low 15.0-57.0 [facility] Comment on above: Order Comment: Roselyn conway Type: BLOOD SPECIMEN Ordering Facility: [facility] Address: [address] [place] [address] Performed By: #### 5 0190-8, 2131-9, 2283-8, 2276-4 #### [facility] CLIA [id number] [address] [place] [address] [place] Vit [facility] Cobalamin (Vitamin B12) [Mass/Vol] 367 pg/mL Normal 232-1245 [facility] Comment on above: Order Comment: Roselyn conway Type: BLOOD SPECIMEN Ordering Facility: [facility] Address: [address] [place] [address] Performed By: #### 5 0190-8, 2131-9, 2283-8, 6-4 #### [facility] CLIA [id number] [address] [place] [address] [facility] CNPDeborah 02-18-2022 CNPN Telephone (BK) LIVIA NOYOLA ([id number]) 1985 F Date Time Provider Department 02/18/22 [...] [D50.0] Order(s):CBC + DIFF [SQCBCDIF] Order #: [id number] FUTURE COMP METABOLIC PANEL [SQCMP] Order #: [id number] FUTURE IRON + TIBC [SQIRON] Order #: [id number] FUTURE FERRITIN BLD [SQFERR] Order #: [id number] FUTURE VITAMIN B12 BLOOD [SQB12] Order #: [id number] FUTURE FOLATE SERUM [SQSERFOL] Order #: [id number] FUTURE Prescriptions as of 02/20/2022 - ALPRAZolam [...] Status:Closed by GRUPO REID on 02/20/22 Normal [facility] Basophils Auto (Bld) [#/Vol] Ordered By: Jennifer Duran on 02-12-2022 Basophils (Bld) [#/Vol] 0.1 10*3/uL 0.0-0.2 [facility] Basophils/100 WBC Auto (Bld) Ordered By: Jennifer Duran on 02-12-2022 Basophils/100 WBC (Bld) 1.0 % . [facility] Blood anisocytosis detection Ordered By: Jennifer Duran on 02-12-2022 Anisocytosis Ql (Bld) Moderate [facility] Blood hemoglobin measurement (mass/volume)Ordered By: Jennifer Duran on 02-12-2022 Hemoglobin (Bld) [Mass/Vol] 8.5 g/dL 11.8-15.4 [facility] Blood leukocytes automated c ount (number/volume)Ordered By: Jennifer Duran on 02-12-2022 WBC (Bld) [#/Vol] 5.9 10*3/uL 4.5-11.0 [facility] Body fluid albumin measureme nt (mass/volume)Ordered By: Jennifer Duran on 02-12-2022 Albumin (Body fld) [Mass/Vol] 3.7 g/dL 3.2-5.[address] [facility] [address] biopsyOrdered By: Jennifer avila on 02-12-2022 Transferrin [Mass/Vol] 356 mg/dL 180-380 [facility] Creatinine and Glomerular fi ltration rate.predicted panel (S/P/Bld)Ordered By: Jennifer Duran on 02-12-2022 Creatinine [Mass/Vol] 0.72 mg/dL 0.44-1.03 [facility] Eosinophils Auto (Bld) [#/Vo l]Ordered By: Jennifer Duran on 02-12-2022 Eosinophils (Bld) [#/Vol] 0.1 10*3/uL 0.0-0.45 [facility] Eosinophils/100 WBC Auto (Bl d)Ordered By: Jennifer Duran on 02-12-2022 Eosinophils/100 WBC (Bld) 2.2 % . [facility] Erythrocyte distribution wid th Auto (RBC) [Ratio]Ordered By: Jennifer Duran on 02-12-2022 Erythrocyte distribution width (RBC) [Ratio] 17.3 % 11.9-15.3 [facility] Estimated glomerular filtrat ion rate (GFR) non- AmericanOrdered By: Jennifer Duran on 02-12-2022 GFR/1.73 sq M.predicted among non-blacks MDRD (S/P/Bld) [Vol rate/Area] > 60 mL/Min [facility] Ferritin [Mass/volume] in Se rum or PlasmaOrdered By: Jennifer Duran on 02-12-2022 Ferritin [Mass/Vol] 5.1 ng/mL 11-306.8 [facility] Globulin Calc (S) [Mass/Vol] Ordered By: Jennifer Duran on 02-12-2022 Globulin (S) [Mass/Vol] 2.9 g/dL [facility] Hematocrit Auto (Bld) [Volum e fraction]Ordered By: Jennifer Duran on 02-12-2022 Hematocrit (Bld) [Volume fraction] 27.9 % 34.0-46.4 [facility] Hypochromia detectionOrdered By: Jennifer Duran on 02-12-2022 Hypochromia Ql (Bld) Slight [facility] Iron [Mass/volume] in Serum or PlasmaOrdered By: Jennifer Duran on 02-12-2022 Iron [Mass/Vol] 11 ug/dL 40-150 [facility] Iron binding capacity [Mass/ volume] in Serum or PlasmaOrdered By: Jennifer Duran on 02-12-2022 Iron binding capacity [Mass/Vol] 498 ug/dL 255-450 [facility] Iron saturation [Mass Fracti on] in Serum or PlasmaOrdered By: Jennifer Duran on 02-12-2022 Iron saturation [Mass fraction] 2.0 % 20-50 [facility] Laboratory - Hematology and Cell countsOrdered By: Jennifer Duran on 02-12-2022 Nucleated RBC/100 WBC (Bld) [Ratio] 0.3 % 0-0.5 [facility] Lymphocytes Auto (Bld) [#/Vo l]Ordered By: Jennifer Duran on 02-12-2022 Lymphocytes (Bld) [#/Vol] 3.0 10*3/uL 1.00-4.8 [facility] Lymphocytes/100 WBC Auto (Bl d)Ordered By: Jennifer Duran on 02-12-2022 Lymphocytes/100 WBC (Bld) 50.8 % . [facility] MCH Auto (RBC) [Entitic mass ]Ordered By: Jennifer Duran on 02-12-2022 MCH (RBC) [Entitic mass] 20.1 pg 24.7-34.3 [facility] MCHC Auto (RBC) [Mass/Vol]Or dered By: Jennifer Duran on 02-12-2022 MCHC (RBC) [Mass/Vol] 30.4 g/dL 32.0-35.0 [facility] MCV Auto (RBC) [Entitic vol] Ordered By: Jennifer Duran on 02-12-2022 MCV (RBC) [Entitic vol] 66.3 fL 80-100 [facility] Monocytes Auto (Bld) [#/Vol] Ordered By: Jennifer Duran on 02-12-2022 Monocytes (Bld) [#/Vol] 0.3 10*3/uL 0.0-0.8 [facility] Monocytes/100 WBC Auto (Bld) Ordered By: Jennifer Duran on 02-12-2022 Monocytes/100 WBC (Bld) 5.7 % . [facility] Neutrophils Auto (Bld) [#/Vo l]Ordered By: Jennifer Duran on 02-12-2022 Neutrophils (Bld) [#/Vol] 2.4 10*3/uL 1.8-7.7 [facility] Neutrophils/100 WBC Auto (Bl d)Ordered By: Jennifer Duran on 02-12-2022 Neutrophils/100 WBC (Bld) 40.3 % . [facility] No Panel InformationOrdered By: Jennifer Duran on 02-12-2022 Estimated GFR () > 60 mL/Min [facility] Comment on above: GFR estimated refere nce range: According to KDOQI guidelines, <60 ml/min/1.73m2 is sufficient to diagnose a patient with chronic kidney disease. Microcytosis Moderate [facility] Creatinine Clearance (Chem N/A [facility] Platelet Estimate Normal Normal [facility] Platelet Morphology Comment Normal Normal [facility] Platelet mean volume Auto (B ld) [Entitic vol]Ordered By: Jennifer Duran on 02-12-2022 Platelet mean volume (Bld) [Entitic vol] 8.1 fL 6.3-10.7 [facility] Platelets Auto (Bld) [#/Vol] Ordered By: Jennifer Duran on 02-12-2022 Platelets (Bld) [#/Vol] 459 10*3/uL 150-450 [facility] Protein [Mass/volume] in Ser um or PlasmaOrdered By: Jennifer Duran on 02-12-2022 Protein [Mass/Vol] 6.6 g/dL 6.1-7.9 [facility] RBC Auto (Bld) [#/Vol]Ordere d By: Jennifer Duran on 02-12-2022 RBC (Bld) [#/Vol] 4.20 10*6/uL 3.60-5.00 [facility] RBC morphologyOrdered By: Pool Duran on 02-12-2022 RBC morphology finding Nom (Bld) N/A [facility] Serum or plasma alanine syed otransferase measurement without P-5'-P (enzymatic activiOrdered By: Jennifer Duran on 02-12-2022 ALT No additional P-5'-P [Catalytic activity/Vol] 69 U/L 10-60 [facility] Serum or plasma albumin/glob ulin mass ratioOrdered By: Jennifer Duran on 02-12-2022 Albumin/Globulin [Mass ratio] 1.3 {ratio} [facility] Serum or plasma alkaline zeeshan sphatase measurement (enzymatic activity/volume)Ordered By: Jennifer Duran on 02-12-2022 ALP [Catalytic activity/Vol] 73 U/L 32-92 [facility] Serum or plasma anion gap de terminationOrdered By: Jennifer Duran on 02-12-2022 Anion gap [Moles/Vol] 13.2 mmol/L 6.0-15.0 [facility] Serum or plasma aspartate am inotransferase measurement (enzymatic activity/volume)Ordered By: Jennifer Duran on 02-12-2022 AST [Catalytic activity/Vol] 42 U/L 10-42 [facility] Serum or plasma calcium donaldo urement (mass/volume)Ordered By: Jennifer Duran on 02-12-2022 Calcium [Mass/Vol] 9.3 mg/dL 8.2-10.2 [facility] Serum or plasma chloride claudia surement (moles/volume)Ordered By: Jennifer Duran on 02-12-2022 Chloride [Moles/Vol] 101 mmol/L 95-114 [facility] Serum or plasma glucose donaldo urement (mass/volume)Ordered By: Jennifer Duran on 09-02-2022 Glucose [Mass/Vol] 98 mg/dL 70-100 [facility] Comment on above: ADA recommended refe [...] on 02-12-2022 Potassium [Moles/Vol] 3.6 mmol/L 3.5-5.1 [facility] Serum or plasma sodium measu rement (moles/volume)Ordered By: Jennifer Duran on 02-12-2022 Sodium [Moles/Vol] 136 mmol/L 136-146 [facility] Serum or plasma total biliru bin measurement (mass/volume)Ordered By: Jennifer Duran on 02-12-2022 Bilirubin [Mass/Vol] 0.4 mg/dL 0.3-1.2 [facility] Serum or plasma total carbon dioxide measurement (moles/volume)Ordered By: Jennifer Duran on 02-12-2022 CO2 [Moles/Vol] 25.4 mmol/L 22.0-30.0 [facility] Serum or plasma urea nitroge n measurement (mass/volume)Ordered By: Jnenifer Duran on 02-12-2022 Urea nitrogen [Mass/Vol] 4 mg/dL 9-23 [facility] Basophils Auto (Bld) [#/Vol] Ordered By: Kendra Persaud on 09-14-2021 Basophils (Bld) [#/Vol] 0.1 10*3/uL 0.0-0.2 [facility] Basophils/100 WBC Auto (Bld) Ordered By: Kendra Persaud on 09-14-2021 Basophils/100 WBC (Bld) 1.3 % [facility] Bilirubin Test strip Ql (U)O rdered By: Kendra Persaud on 09-14-2021 Bilirubin Ql (U) Negative Negative [facility] Blood hemoglobin measurement (mass/volume)Ordered By: Kendra Persaud on 09-14-2021 Hemoglobin (Bld) [Mass/Vol] 9.7 g/dL 11.8-15.4 [facility] Blood leukocytes automated c ount (number/volume)Ordered By: Kendra Persaud on 09-14-2021 WBC (Bld) [#/Vol] 8.9 10*3/uL 4.5-11.0 [facility] Body fluid albumin measureme nt (mass/volume)Ordered By: Kendra Persaud on 09-14-2021 Albumin (Body fld) [Mass/Vol] 3.7 g/dL 3.2-5.5 [facility] Color Auto (U)Ordered By: Jazmin Persaud on 09-14-2021 Color (U) Yellow Yellow [facility] Creatinine and Glomerular fi ltration rate.predicted panel (S/P/Bld)Ordered By: Kendra Persaud on 09-14-2021 Creatinine [Mass/Vol] 0.71 mg/dL 0.44-1.03 [facility] Eosinophils Auto (Bld) [#/Vo l]Ordered By: Kendra Persaud on 09-14-2021 Eosinophils (Bld) [#/Vol] 0.0 10*3/uL 0.0-0.45 [facility] Eosinophils/100 WBC Auto (Bl d)Ordered By: Kendra Persaud on 09-14-2021 Eosinophils/100 WBC (Bld) 0.4 % [facility] Erythrocyte distribution wid th Auto (RBC) [Ratio]Ordered By: Kendra Persaud on 09-14-2021 Erythrocyte distribution width (RBC) [Ratio] 17.0 % 11.9-15.3 [facility] Estimated glomerular filtrat ion rate (GFR) non- AmericanOrdered By: Kendra Persaud on 09-14-2021 GFR/1.73 sq M.predicted among non-blacks MDRD (S/P/Bld) [Vol rate/Area] > 60 mL/Min [facility] Globulin Calc (S) [Mass/Vol] Ordered By: Kendra Persaud on 09-14-2021 Globulin (S) [Mass/Vol] 3.2 g/dL [facility] HCG ( test) IA.rapi d Ql (U)Ordered By: Kendra Persaud on 09-14-2021 HCG ( test) Ql (U) Negative [facility] Hematocrit Auto (Bld) [Volum e fraction]Ordered By: Kendra Persaud on 09-14-2021 Hematocrit (Bld) [Volume fraction] 31.9 % 34.0-46.4 [facility] Ketones Auto test strip (U) [Mass/Vol]Ordered By: Kendra Persaud on 09-14-2021 Ketones (U) [Mass/Vol] Negative Negative [facility] - Chemistry and C hemistry - challengeOrdered By: Kendra Persaud on 09-14-2021 Lipase [Catalytic activity/Vol] 36.0 U/L 22-51 [facility] Laboratory - Hematology and Cell countsOrdered By: Kendra Persaud on 09-14-2021 Nucleated RBC/100 WBC (Bld) [Ratio] 0.0 % 0-0.5 [facility] Lymphocytes Auto (Bld) [#/Vo l]Ordered By: Kendra Persaud on 09-14-2021 Lymphocytes (Bld) [#/Vol] 4.1 10*3/uL 1.00-4.8 [facility] Lymphocytes/100 WBC Auto (Bl d)Ordered By: Kendra Persaud on 09-14-2021 Lymphocytes/100 WBC (Bld) 45.7 % [facility] MCH Auto (RBC) [Entitic mass ]Ordered By: Kendra Persaud on 09-14-2021 MCH (RBC) [Entitic mass] 21.3 pg 24.7-34.3 [facility] MCHC Auto (RBC) [Mass/Vol]Or dered By: Kendra Persaud on 09-14-2021 MCHC (RBC) [Mass/Vol] 30.4 g/dL 32.0-35.0 [facility] MCV Auto (RBC) [Entitic vol] Ordered By: Kendra Persaud on 09-14-2021 MCV (RBC) [Entitic vol] 70.0 fL 80-100 [facility] Monocytes Auto (Bld) [#/Vol] Ordered By: Kendra Persaud on 09-14-2021 Monocytes (Bld) [#/Vol] 0.7 10*3/uL 0.0-0.8 [facility] Monocytes/100 WBC Auto (Bld) Ordered By: Kendra Persaud on 09-14-2021 Monocytes/100 WBC (Bld) 7.8 % [facility] Neutrophils Auto (Bld) [#/Vo l]Ordered By: Kendra Persaud on 09-14-2021 Neutrophils (Bld) [#/Vol] 4.0 10*3/uL 1.8-7.7 [facility] Neutrophils/100 WBC Auto (Bl d)Ordered By: Kendra Persaud on 09-14-2021 Neutrophils/100 WBC (Bld) 44.8 % [facility] Nitrite Test strip Ql (U)Ord ered By: Kendra Persaud on 09-14-2021 Nitrite Ql (U) Negative Negative [facility] No Panel InformationOrdered By: Kendra Persaud on 09-14-2021 Estimated GFR () > 60 mL/Min [facility] Comment on above: GFR estimated refere nce range: According to KDOQI guidelines, <60 ml/min/1.73m2 is sufficient to diagnose a patient with chronic kidney disease. Pharmacy Creatinine Clearance (Chem 119.44 [facility] Platelet mean volume Auto (B ld) [Entitic vol]Ordered By: Kendra Persaud on 09-14-2021 Platelet mean volume (Bld) [Entitic vol] 7.4 fL 6.3-10.7 [facility] Platelets Auto (Bld) [#/Vol] Ordered By: Kendra Persaud on 09-14-2021 Platelets (Bld) [#/Vol] 604 10*3/uL 150-450 [facility] Protein Auto test strip (U) [Mass/Vol]Ordered By: Kendra Persaud on 09-14-2021 Protein (U) [Mass/Vol] Negative Negative [facility] Protein [Mass/volume] in Ser um or PlasmaOrdered By: Kendra Persaud on 09-14-2021 Protein [Mass/Vol] 6.9 g/dL 6.1-7.9 [facility] RBC Auto (Bld) [#/Vol]Ordere d By: Kendra Persaud on 09-14-2021 RBC (Bld) [#/Vol] 4.55 10*6/uL 3.60-5.00 [facility] Serum or plasma alanine syed otransferase measurement without P-5'-P (enzymatic activiOrdered By: Kendra Persaud on 09-14-2021 ALT No additional P-5'-P [Catalytic activity/Vol] 16 U/L 10-60 [facility] Serum or plasma albumin/glob ulin mass ratioOrdered By: Kendra Persaud on 09-14-2021 Albumin/Globulin [Mass ratio] 1.2 {ratio} [facility] Serum or plasma alkaline zeeshan sphatase measurement (enzymatic activity/volume)Ordered By: Kendra Persaud on 09-14-2021 ALP [Catalytic activity/Vol] 48 U/L 32-92 [facility] Serum or plasma aspartate am inotransferase measurement (enzymatic activity/volume)Ordered By: Kendra Persaud on 09-14-2021 AST [Catalytic activity/Vol] 17 U/L 10-42 [facility] Serum or plasma calcium donaldo urement (mass/volume)Ordered By: Kendra Persaud on 09-14-2021 Calcium [Mass/Vol] 9.0 mg/dL 8.2-10.2 [facility] Serum or plasma chloride claudia surement (moles/volume)Ordered By: Kendra Persaud on 09-14-2021 Chloride [Moles/Vol] 105 mmol/L 95-114 [facility] Serum or plasma glucose donaldo urement (mass/volume)Ordered By: Kendra Persaud on 09-14-2021 Glucose [Mass/Vol] 94 mg/dL 70-100 [facility] Comment on above: ADA recommended refe rence rangeRandom Glucose Reference Range is dependent on time and content of last meal. Glucose of more than 200 mg/dL in a nonstressed, ambulatory subject supports the diagnosis of Diabetes Mellitus. Serum or plasma potassium me asurement (moles/volume)Ordered By: Kendra Persaud on 09-14-2021 Potassium [Moles/Vol] 3.1 mmol/L 3.5-5.1 [facility] Serum or plasma sodium measu rement (moles/volume)Ordered By: Kendra Persaud on 09-14-2021 Sodium [Moles/Vol] 139 mmol/L 136-146 [facility] Serum or plasma total biliru bin measurement (mass/volume)Ordered By: Kendra Persaud on 09-14-2021 Bilirubin [Mass/Vol] 0.5 mg/dL 0.3-1.2 [facility] Serum or plasma total carbon dioxide measurement (moles/volume)Ordered By: Kendra Persaud on 09-14-2021 CO2 [Moles/Vol] 23.7 mmol/L 22.0-30.0 [facility] Serum or plasma urea nitroge n measurement (mass/volume)Ordered By: Kendra Persaud on 09-14-2021 Urea nitrogen [Mass/Vol] 4 mg/dL 9-23 [facility] Specific gravity Auto test s trip (U) [Rel density]Ordered By: Kendra Persaud on 09-14-2021 Specific gravity (U) [Rel density] 1.004 1.001-1.030 [facility] Urine clarity by refractomet ry automatedOrdered By: Kendra Persaud on 09-14-2021 Clarity Refractometry automated (U) Clear Clear [facility] Urine glucose measurement by automated test strip (mass/volume)Ordered By: Kendra Persaud on 09-14-2021 Glucose Auto test strip (U) [Mass/Vol] Normal mg/dL Normal [facility] Urine hemoglobin detection b y automated test stripOrdered By: Kendra Persaud on 09-14-2021 Hemoglobin Auto test strip Ql (U) Negative Negative [facility] Urine leukocyte esterase det ection by automated test stripOrdered By: Kendra Persaud on 09-14-2021 Leukocyte esterase Auto test strip Ql (U) Negative Negative [facility] Urobilinogen Auto test strip (U) [Mass/Vol]Ordered By: Kendra Persaud on 09-14-2021 Urobilinogen (U) [Mass/Vol] Normal mg/dL Normal [facility] pH Auto test strip (U)Ordere d By: Kendra Persaud on 09-14-2021 pH (U) 6.5 [pH] 5.0-9.0 [facility] Basophils Auto (Bld) [#/Vol] Ordered By: Augustus Santiago on 07-04-2021 Basophils (Bld) [#/Vol] 0.1 10*3/uL 0.0-0.2 [facility] Basophils/100 WBC Auto (Bld) Ordered By: Augustus Santiago on 07-04-2021 Basophils/100 WBC (Bld) 0.9 % [facility] Blood hemoglobin measurement (mass/volume)Ordered By: Augustus Santiago on 07-04-2021 Hemoglobin (Bld) [Mass/Vol] 10.2 g/dL 11.8-15.4 [facility] Blood leukocytes automated c ount (number/volume)Ordered By: Augustus Santiago on 07-04-2021 WBC (Bld) [#/Vol] 6.6 10*3/uL 4.5-11.0 [facility] CT biopsyOrdered By: Augustus powell on 07-04-2021 Transferrin [Mass/Vol] 360 mg/dL 180-380 [facility] Creatinine and Glomerular fi ltration rate.predicted panel (S/P/Bld)Ordered By: Augustus Santiago on 07-04-2021 Creatinine [Mass/Vol] 0.69 mg/dL 0.44-1.03 [facility] Eosinophils Auto (Bld) [#/Vo l]Ordered By: Augustus Santiago on 07-04-2021 Eosinophils (Bld) [#/Vol] 0.1 10*3/uL 0.0-0.45 [facility] Eosinophils/100 WBC Auto (Bl d)Ordered By: Augustus Santiago on 07-04-2021 Eosinophils/100 WBC (Bld) 1.2 % [facility] Erythrocyte distribution wid th Auto (RBC) [Ratio]Ordered By: Augustus Santiago on 07-04-2021 Erythrocyte distribution width (RBC) [Ratio] 17.2 % 11.9-15.3 [facility] Estimated glomerular filtrat ion rate (GFR) non- AmericanOrdered By: Augustus Santiago on 07-04-2021 GFR/1.73 sq M.predicted among non-blacks MDRD (S/P/Bld) [Vol rate/Area] > 60 mL/Min [facility] Hematocrit Auto (Bld) [Volum e fraction]Ordered By: Augustus Santiago on 07-04-2021 Hematocrit (Bld) [Volume fraction] 32.0 % 34.0-46.4 [facility] Iron [Mass/volume] in Serum or PlasmaOrdered By: Augustus Santiago on 07-04-2021 Iron [Mass/Vol] 10 ug/dL 40-150 [facility] Iron binding capacity [Mass/ volume] in Serum or PlasmaOrdered By: Augustus Santiago on 07-04-2021 Iron binding capacity [Mass/Vol] 504 ug/dL 255-450 [facility] Iron saturation [Mass Fracti on] in Serum or PlasmaOrdered By: Augustus Santiago on 07-04-2021 Iron saturation [Mass fraction] 1.0 % 20-50 [facility] Laboratory - Hematology and Cell countsOrdered By: Augustus Santiago on 07-04-2021 Nucleated RBC/100 WBC (Bld) [Ratio] 0.0 % 0-0.5 [facility] Lymphocytes Auto (Bld) [#/Vo l]Ordered By: Augustus Santiago on 07-04-2021 Lymphocytes (Bld) [#/Vol] 1.9 10*3/uL 1.00-4.8 [facility] Lymphocytes/100 WBC Auto (Bl d)Ordered By: Augustus Santiago on 07-04-2021 Lymphocytes/100 WBC (Bld) 28.4 % [facility] MCH Auto (RBC) [Entitic mass ]Ordered By: Augustus Santiago on 07-04-2021 MCH (RBC) [Entitic mass] 22.7 pg 24.7-34.3 [facility] MCHC Auto (RBC) [Mass/Vol]Or dered By: Augustus Santiago on 07-04-2021 MCHC (RBC) [Mass/Vol] 31.9 g/dL 32.0-35.0 [facility] MCV Auto (RBC) [Entitic vol] Ordered By: Augustus Santiago on 07-04-2021 MCV (RBC) [Entitic vol] 71.3 fL 80-100 [facility] Monocytes Auto (Bld) [#/Vol] Ordered By: Augustus Santiago on 07-04-2021 Monocytes (Bld) [#/Vol] 0.5 10*3/uL 0.0-0.8 [facility] Monocytes/100 WBC Auto (Bld) Ordered By: Augustus Santiago on 07-04-2021 Monocytes/100 WBC (Bld) 7.6 % [facility] Neutrophils Auto (Bld) [#/Vo l]Ordered By: Augustus Santiago on 07-04-2021 Neutrophils (Bld) [#/Vol] 4.1 10*3/uL 1.8-7.7 [facility] Neutrophils/100 WBC Auto (Bl d)Ordered By: Augustus Santiago on 07-04-2021 Neutrophils/100 WBC (Bld) 61.9 % [facility] No Panel InformationOrdered By: Augustus Santiago on 07-04-2021 D-Dimer Quantitative (PE/DVT) < 200 ng/mL 0-243 [facility] Comment on above: The reference [...] conditions. Estimated GFR () > 60 mL/Min [facility] Comment on above: GFR estimated refere nce range: According to KDOQI guidelines, <60 ml/min/1.73m2 is sufficient to diagnose a patient with chronic kidney disease. Pharmacy Creatinine Clearance (Chem N/A [facility] Platelet mean volume Auto (B ld) [Entitic vol]Ordered By: Augustus Santiago on 07-04-2021 Platelet mean volume (Bld) [Entitic vol] 7.9 fL 6.3-10.7 [facility] Platelets Auto (Bld) [#/Vol] Ordered By: Augustus Santiago on 07-04-2021 Platelets (Bld) [#/Vol] 457 10*3/uL 150-450 [facility] RBC Auto (Bld) [#/Vol]Ordere d By: Augustus Santiago on 07-04-2021 RBC (Bld) [#/Vol] 4.48 10*6/uL 3.60-5.00 [facility] Serum or plasma calcium donaldo urement (mass/volume)Ordered By: Augustus Santiago on 07-04-2021 Calcium [Mass/Vol] 8.9 mg/dL 8.2-10.2 [facility] Serum or plasma chloride claudia surement (moles/volume)Ordered By: Augustus Santiago on 07-04-2021 Chloride [Moles/Vol] 105 mmol/L 95-114 [facility] Serum or plasma glucose donaldo urement (mass/volume)Ordered By: Augustus Santiago on 07-04-2021 Glucose [Mass/Vol] 110 mg/dL 70-100 [facility] Comment on above: ADA recommended refe rence rangeRandom Glucose Reference Range is dependent on time and content of last meal. Glucose of more than 200 mg/dL in a nonstressed, ambulatory subject supports the diagnosis of Diabetes Mellitus. Serum or plasma potassium me asurement (moles/volume)Ordered By: Augustus Santiago on 07-04-2021 Potassium [Moles/Vol] 3.5 mmol/L 3.5-5.1 [facility] Serum or plasma sodium measu rement (moles/volume)Ordered By: Augustus Santiago on 07-04-2021 Sodium [Moles/Vol] 136 mmol/L 136-146 [facility] Serum or plasma total carbon dioxide measurement (moles/volume)Ordered By: Augustus Santiago on 07-04-2021 CO2 [Moles/Vol] 23.0 mmol/L 22.0-30.0 [facility] Serum or plasma urea nitroge n measurement (mass/volume)Ordered By: Augustus Santiago on 07-04-2021 Urea nitrogen [Mass/Vol] 5 mg/dL 9- [facility] Cardiac Stress Teston 2020 Cardiac Stress Test [facility] [address], [address], [place] [address] TRANSTHORACIC ECHOCARDIOGRAM REPORT Patient Name: LIVIA NOYOLA Reading Physician: [id number] Raphael Alas MD Study Date: 08/06/2020 Referring Physician: [id number] CANTU MRN/PID: [id number] PCP: Jennifer Duran Accession/Order#: [id number] Department Location: [facility] Date of : 1985 Fellow: Gender: F Nurse: Admit Date: [employer] Service Sales Representatives: Josephine Newton RD, RVT Height: 165.10 cm CC Report to: Weight: 88.00 kg Study Type: Echocardiogram BSA: 1.95 m2 Diagnosis/ICD: R06.00-Dyspnea, unspecified; R00.0-Tachycardia, unspecified Indication: Obesity, Family History of CAD Procedure/CPT: Echo Complete w Full [id number] Study Detail: The following Echo studies were [...] 0.9 m/s (0.6-0.9m/s) PV Max P.0 mmHg [id number] Raphael Alas MD Electronically signed on 08/07/2020 at 4:26:59 PM Final Normal [facility] Vital Signs Date Time Vital Sign Value Performing Clinician Facility 04-03-2024 14:49-0400 Body height 165.1 cm [facility] 04-03-2024 14:49-0400 Body mass index (BMI) [Ratio] 31.62 kg/m2 [facility] 04-03-2024 14:49-0400 Body weight 86.18 kg [facility] 2 [facility] 03-28-2024 11:02-0400 Body height 165.1 cm Adiel Aparicio MD Work Phone: [facility] 03-28-2024 11:02-0400 Body mass index (BMI) [Ratio] 32.98 kg/m2 Adiel Aparicio MD Work Phone: [facility] 03-28-2024 11:02-0400 Body weight 89.9 kg Adile Aparicio MD Work Phone: [facility] 03-23-2024 12:03-0400 Body mass index (BMI) [Ratio] 32.5 kg/m2 [facility] 03-23-2024 12:03-0400 Body temperature 97.9 [degF] [facility] 03-23-2024 12:03-0400 Body weight 88.9 kg [facility] 03-23-2024 12:03-0400 Diastolic blood pressure 64 mm[Hg] [facility] 03-23-2024 12:03-0400 Heart rate 91 /min [facility] 03-23-2024 12:03-0400 SaO2% (BldA) [Mass fraction] 98 % [facility] 03-23-2024 12:03-0400 Systolic blood pressure 102 mm[Hg] [facility] 03-23-2024 08:40-0400 Body height 165.1 cm [facility] 03-03-2024 15:27-0400 Body temperature 98.71 [degF] Davi Pay DO Work Phone: [facility] 03-03-2024 15:27-0400 Diastolic blood pressure 84 mm[Hg] Davi Pay DO Work Phone: [facility] [employer] [facility] 03-03-2024 15:27-0400 Heart rate 115 /min Davi Pay DO Work Phone: [employer] [facility] 03-03-2024 15:27-0400 Respiratory rate 18 /min Davi Pay DO Work Phone: [facility] 03-03-2024 15:27-0400 SaO2% (BldA) [Mass fraction] 97 % Davi Pay DO Work Phone: [facility] [employer] [facility] 03-03-2024 15:27-0400 Systolic blood pressure 164 mm[Hg] Davi Pay DO Work Phone: [facility] 02-24-2024 20:29-0400 Body height 165.1 cm Denton Delcid MD Work Phone: [facility] 02-24-2024 20:29-0400 Body temperature 98.01 [degF] Denton Delcid MD Work Phone: [facility] [employer] [facility] 02-24-2024 20:29-0400 Diastolic blood pressure 72 mm[Hg] Denton Delcid MD Work Phone: [facility] 02-24-2024 20:29-0400 Heart rate 94 /min Denton Delcid MD Work Phone: [facility] [employer] [facility] 02-24-2024 20:29-0400 Respiratory rate 20 /min Denton Delcid MD Work Phone: [facility] 02-24-2024 20:29-0400 SaO2% (BldA) [Mass fraction] 99 % Denton Delcid MD Work Phone: [facility] 02-24-2024 20:29-0400 Systolic blood pressure 129 mm[Hg] Denton Delcid MD Work Phone: [facility] 02-16-2024 16:47-0400 Diastolic blood pressure 68 mm[Hg] Jennifer Moore MD Work Phone: [facility] 02-16-2024 16:47-0400 Heart rate 99 /min Jennifer Moore MD Work Phone: [facility] 02-16-2024 16:47-0400 SaO2% (BldA) [Mass fraction] 96 % Jennifer Moore MD Work Phone: [facility] 02-16-2024 16:47-0400 Systolic blood pressure 115 mm[Hg] Jennifer Moore MD Work Phone: [facility] 02-16-2024 16:38-0400 Respiratory rate 18 /min Jennifer Moore MD Work Phone: [facility] 02-16-2024 13:28-0400 Body temperature 98.29 [degF] Jennifer Moore MD Work Phone: [facility] 02-13-2024 00:26-0400 Body temperature 98.24 [degF] Ritesh Ivana [facility] 02-13-2024 00:26-0400 Diastolic blood pressure 72 mm[Hg] Ritesh Ivana [facility] 02-13-2024 00:26-0400 Heart rate 86 /min Ritesh Ivana [facility] 02-13-2024 00:26-0400 Respiratory rate 16 /min Ritesh Ivana [facility] 02-13-2024 00:26-0400 SaO2% (BldA) [Mass fraction] 100 % Ritesh Ivana [facility] 02-13-2024 00:26-0400 Systolic blood pressure 109 mm[Hg] Ritesh Ivana [facility] 01-22-2024 12:13-0400 Body height 165.1 cm Eren Camejo DO Work Phone: [facility] [employer] 01-22-2024 12:13-0400 Body mass index (BMI) [Ratio] 29.95 kg/m2 Eren Camejo DO Work Phone: [facility] [employer] 01-22-2024 12:13-0400 Body temperature 98.71 [degF] Eren Camejo DO Work Phone: [facility] [employer] 01-22-2024 12:13-0400 Body weight 81.65 kg Eren Camejo DO Work Phone: [facility] [employer] 01-22-2024 12:13-0400 Diastolic blood pressure 92 mm[Hg] Eren Camejo DO Work Phone: [facility] [employer] 01-22-2024 12:13-0400 Heart rate 109 /min Eren Camejo DO Work Phone: [facility] [employer] 01-22-2024 12:13-0400 Respiratory rate 18 /min Eren Camejo DO Work Phone: [facility] [employer] 01-22-2024 12:13-0400 SaO2% (BldA) [Mass fraction] 100 % Eren Camejo DO Work Phone: [facility] [employer] 01-22-2024 12:13-0400 Systolic blood pressure 152 mm[Hg] Eren [facility]amejo DO [email or web address] 01-19-2024 11:18-0400 Body height 165.1 cm DO Jennifer Duran Work Phone: [facility] 01-19-2024 11:18-0400 Body mass index (BMI) [Ratio] 31.9 kg/m2 DO Jennifer Duran Work Phone: [facility] 01-19-2024 11:18-0400 Body temperature 98.2 [degF] DO Jennifer Duran Work Phone: [facility] 01-19-2024 11:18-0400 Body weight 87.08 kg DO Jennifer Girvin Work Phone: [facility] 01-19-2024 11:18-0400 Diastolic blood pressure 82 mm[Hg] DO Jennifer Girvin Work Phone: [facility] 01-19-2024 11:18-0400 Heart rate 102 /min DO Jennifer Girvin Work Phone: [facility] 01-19-2024 11:18-0400 Respiratory rate 18 /min DO Jennifer Girvin Work Phone: [facility] 01-19-2024 11:18-0400 SaO2% (BldA) [Mass fraction] 98 % DO Jennifer Girvin Work Phone: [facility] 01-19-2024 11:18-0400 Systolic blood pressure 122 mm[Hg] DO Jennifer Girvin Work Phone: [facility] 11-08-2023 14:03-0400 Body height 165.1 cm DO Jennifer Girvin Work Phone: [facility] 11-08-2023 14:03-0400 Body temperature 98.1 [degF] DO Jennifer Girvin Work Phone: [facility] 11-08-2023 14:03-0400 Body weight 82.85 kg DO Jennifer Girvin Work Phone: [facility] 11-08-2023 14:03-0400 Diastolic blood pressure 77 mm[Hg] DO Jennifer Girvin Work Phone: [facility] 11-08-2023 14:03-0400 Heart rate 86 /min DO Jennifer Girvin Work Phone: [facility] 11-08-2023 14:03-0400 Respiratory rate 16 /min DO Jennifer Girvin Work Phone: [facility] 11-08-2023 14:03-0400 SaO2% (BldA) [Mass fraction] 100 % DO Jennifer Girvin Work Phone: [facility] 11-08-2023 14:03-0400 Systolic blood pressure 142 mm[Hg] DO Jennifer Duran Work Phone: [facility] 11-08-2023 11:56-0400 Body height 165.1 cm Eren Camejo DO [facility] Phone[facility] 11-08-2023 11:56-0400 Body mass index (BMI) [Ratio] 30.45 kg/m2 Eren Camejo DO Work Phone[facility] 11-08-2023 11:56-0400 Body temperature 97.81 [degF] Eren Camejo DO Work Phone[facility] 11-08-2023 11:56-0400 Body weight 83.01 kg Eren Camejo DO [facility] 11-08-2023 11:56-0400 Diastolic blood pressure 86 mm[Hg] Eren Camejo DO Work Phone: [facility] [employer] 11-08-2023 11:56-0400 Heart rate 100 /min Eren Camejo DO Work Phone: [facility] [employer] 11-08-2023 11:56-0400 Respiratory rate 18 /min Eren Camejo DO Work Phone[email or web address] 11-08-2023 11:56-0400 SaO2% (BldA) [Mass fraction] 99 % Eren Camejo DO Work Phone: [email or web address] 11-08-2023 11:56-0400 Systolic blood pressure 133 mm[Hg] Eren Camejo DO Work Phone[facility] 09-30-2023 02:09-0400 Diastolic blood pressure 89 mm[Hg] Ritesh Ivana [facility] 09-30-2023 02:09-0400 Heart rate 124 /min Ritesh Ivana [facility] 09-30-2023 02:09-0400 Mean blood pressure 109 mm[Hg] Ritesh Ivana [facility] 09-30-2023 02:09-0400 Respiratory rate 20 /min Ritesh Ivana [facility] 09-30-2023 02:09-0400 SaO2% (BldA) [Mass fraction] 98 % Ritesh Ivana [facility] 09-30-2023 02:09-0400 Systolic blood pressure 149 mm[Hg] Ritesh Ivana [facility] 09-30-2023 01:00-0400 Diastolic blood pressure 82 mm[Hg] Ritesh Ivana [facility] 09-30-2023 01:00-0400 Heart rate 118 /min Ritesh Ivana [facility] 09-30-2023 01:00-0400 Mean blood pressure 104 mm[Hg] Ritesh Ivana [facility] 09-30-2023 01:00-0400 SaO2% (BldA) [Mass fraction] 99 % Ritesh Ivana [facility] 09-30-2023 01:00-0400 Systolic blood pressure 147 mm[Hg] Ritesh Ivana [facility] 09-29-2023 23:40-0400 Body temperature 97.7 [degF] Ritesh Ivana [facility] 09-29-2023 23:40-0400 Diastolic blood pressure 92 mm[Hg] Ritesh Ivana [facility] 09-29-2023 23:40-0400 Heart rate 139 /min Ritesh Ivana [facility] 09-29-2023 23:40-0400 Respiratory rate 20 /min Ritesh Lynnner [facility] 09-29-2023 23:40-0400 SaO2% (BldA) [Mass fraction] 100 % Ritesh Ivana [facility] 09-29-2023 23:40-0400 Systolic blood pressure 144 mm[Hg] Ritesh Ivana [facility] 09-26-2023 18:00-0400 Heart rate 119 /min Konstantin Warde [facility] 09-26-2023 18:00-0400 SaO2% (BldA) [Mass fraction] 96 % Konstantin Zohaib [facility] 09-26-2023 17:30-0400 Diastolic blood pressure 124 mm[Hg] Konstantin Zohaib [facility] 09-26-2023 17:30-0400 Heart rate 105 /min Konstantin Zoahib [facility] 09-26-2023 17:30-0400 Mean blood pressure 129 mm[Hg] Konstantin Zohaib [facility] 09-26-2023 17:30-0400 SaO2% (BldA) [Mass fraction] 100 % Konstantin Zohaib [facility] 09-26-2023 17:30-0400 Systolic blood pressure 139 mm[Hg] Konstantin Zohaib [facility] 09-26-2023 16:48-0400 Diastolic blood pressure 82 mm[Hg] Konstantin Zohaib [facility] 09-26-2023 16:48-0400 Heart rate 126 /min Konstantin Zohaib [facility] 09-26-2023 16:48-0400 Mean blood pressure 101 mm[Hg] Konstantin Zohaib [facility] 09-26-2023 16:48-0400 Respiratory rate 18 /min Konstantin Penny [facility] 09-26-2023 16:48-0400 SaO2% (BldA) [Mass fraction] 100 % Konstantin Penny [facility] 09-26-2023 16:48-0400 Systolic blood pressure 139 mm[Hg] Konstantin Penny [facility] 09-26-2023 16:30-0400 Diastolic blood pressure 96 mm[Hg] Konstantin Penny [facility] 09-26-2023 16:30-0400 Mean blood pressure 105 mm[Hg] Konstantin Penny [facility] 09-26-2023 16:30-0400 Respiratory rate 18 /min Konstantin Penny [facility] 09-26-2023 16:30-0400 Systolic blood pressure 122 mm[Hg] Konstantin Penny [facility] 09-26-2023 14:45-0400 Respiratory rate 18 /min Konstantin Penny [facility] 09-26-2023 14:13-0400 Body temperature 98.6 [degF] Konstantin Penny [facility] 07-31-2023 18:01-0500 Diastolic blood pressure 87 mm[Hg] Jignesh Dumont [facility] 07-31-2023 18:01-0500 Heart rate 121 /min Jignesh Tim [facility] 07-31-2023 18:01-0500 Mean blood pressure 99 mm[Hg] Jignesh Dumont [facility] 07-31-2023 18:01-0500 Respiratory rate 16 /min Jignesh Tim [facility] 07-31-2023 18:01-0500 SaO2% (BldA) [Mass fraction] 99 % Jignesh Tim [facility] 07-31-2023 18:01-0500 Systolic blood pressure 123 mm[Hg] Jignesh Tim [facility] 07-31-2023 17:00-0500 Diastolic blood pressure 77 mm[Hg] Jignesh Tim [facility] 07-31-2023 17:00-0500 Heart rate 96 /min Jignesh Tim [facility] 07-31-2023 17:00-0500 Mean blood pressure 92 mm[Hg] Jignesh Tim [facility] 07-31-2023 17:00-0500 Systolic blood pressure 122 mm[Hg] Jignesh Tim [facility] 07-31-2023 16:07-0500 Diastolic blood pressure 90 mm[Hg] Jignesh Tim [facility] 07-31-2023 16:07-0500 Heart rate 117 /min Jignesh Tim [facility] 07-31-2023 16:07-0500 Mean blood pressure 105 mm[Hg] Jignesh Tim [facility] 07-31-2023 16:07-0500 Respiratory rate 19 /min Jignesh Tim [facility] 07-31-2023 16:07-0500 SaO2% (BldA) [Mass fraction] 100 % Jignesh Tim [facility] 07-31-2023 16:07-0500 Systolic blood pressure 135 mm[Hg] Jignesh Tim [facility] 07-31-2023 16:06-0500 Respiratory rate 18 /min Jignesh Dumont [facility] 07-31-2023 15:34-0500 Body temperature 97.88 [degF] Jignesh Dumont [facility] 07-31-2023 15:34-0500 Heart rate 136 /min Jignesh Dumont [facility] 07-31-2023 15:34-0500 Respiratory rate 18 /min Jignesh Dumont [facility] 07-19-2023 12:40-0500 Body height 165.1 cm Jennifer Duran Other [facility] [employer] Other 04-30-2023 18:19-0500 Diastolic blood pressure 82 mm[Hg] DO Jennifer Duran Work Phone: [facility] 04-30-2023 18:19-0500 Heart rate 128 /min DO Jennifer Duran Work Phone: [facility] 04-30-2023 18:19-0500 Respiratory rate 18 /min DO Jennifer Kendallivelisse Work Phone: [facility] 04-30-2023 18:19-0500 SaO2% (BldA) [Mass fraction] 99 % DO Jennifer Duran Work Phone: [facility] 04-30-2023 18:19-0500 Systolic blood pressure 116 mm[Hg] DO Jennifer Duran Work Phone: [facility] 04-30-2023 16:43-0500 Body height 165.1 cm DO Jennifer Duran Work Phone: [facility] 04-30-2023 16:43-0500 Body temperature 98.1 [degF] DO Jennifer Duran Work Phone: [facility] 04-30-2023 16:43-0500 Body weight 62.3 kg DO Jennifer Duran Work Phone: [facility] 04-24-2023 15:51-0500 Diastolic blood pressure 81 mm[Hg] Jignesh Tim [facility] 04-24-2023 15:51-0500 Heart rate 98 /min Jignesh Tim [facility] 04-24-2023 15:51-0500 Mean blood pressure 94 mm[Hg] Jignesh Tim [facility] 04-24-2023 15:51-0500 Respiratory rate 17 /min Jignesh Tim [facility] 04-24-2023 15:51-0500 SaO2% (BldA) [Mass fraction] 99 % Jignesh Tim [facility] 04-24-2023 15:51-0500 Systolic blood pressure 120 mm[Hg] Jignesh Tim [facility] 04-24-2023 15:00-0500 Diastolic blood pressure 72 mm[Hg] Jignesh Tim [facility] 04-24-2023 15:00-0500 Heart rate 85 /min Jignesh Tim [facility] 04-24-2023 15:00-0500 Mean blood pressure 87 mm[Hg] Jignesh Tim [facility] 04-24-2023 15:00-0500 Respiratory rate 16 /min Jignesh Tim [facility] 04-24-2023 15:00-0500 SaO2% (BldA) [Mass fraction] 96 % Jignesh Tim [facility] 04-24-2023 15:00-0500 Systolic blood pressure 117 mm[Hg] Jignesh Tim [facility] 04-24-2023 14:00-0500 Diastolic blood pressure 88 mm[Hg] Jignesh Dumont [facility] 04-24-2023 14:00-0500 Heart rate 99 /min Jignesh Dumont [facility] 04-24-2023 14:00-0500 Mean blood pressure 100 mm[Hg] Jignesh Dumont [facility] 04-24-2023 14:00-0500 Respiratory rate 18 /min Jignesh Dumont [facility] 04-24-2023 14:00-0500 SaO2% (BldA) [Mass fraction] 97 % Jignesh Dumont [facility] 04-24-2023 14:00-0500 Systolic blood pressure 124 mm[Hg] Jignesh Dumont [facility] 04-24-2023 13:29-0500 Body temperature 99.14 [degF] Jignesh Dumont [facility] 04-24-2023 13:29-0500 Heart rate 118 /min Jignesh Dumont [facility] 04-03-2023 00:20-0400 Diastolic blood pressure 70 mm[Hg] DO Jennifer Duran Work Phone: [facility] 04-03-2023 00:20-0400 Heart rate 80 /min DO Jennifer Duran Work Phone: [facility] 04-03-2023 00:20-0400 SaO2% (BldA) [Mass fraction] 98 % DO Jennifer Duran Work Phone: [facility] 04-03-2023 00:20-0400 Systolic blood pressure 122 mm[Hg] DO Jennifer Duran Work Phone: [facility] 04-02-2023 21:48-0400 Diastolic blood pressure 75 mm[Hg] DO Jennifer Kendallivelisse Work Phone: [facility] 04-02-2023 21:48-0400 Heart rate 90 /min DO Jennifer Girivelisse Work Phone: [facility] 04-02-2023 21:48-0400 Respiratory rate 20 /min DO Jennifer Girivelisse Work Phone: [facility] 04-02-2023 21:48-0400 SaO2% (BldA) [Mass fraction] 98 % DO Jennifer Girivelisse Work Phone: [facility] 04-02-2023 21:48-0400 Systolic blood pressure 109 mm[Hg] DO Jennifer Girivelisse Work Phone: [facility] 04-02-2023 20:23-0400 Body height 165.1 cm DO Jennifer Duran Work Phone: [facility] 04-02-2023 20:23-0400 Body temperature 98.2 [degF] DO Jennifer Duran Work Phone: [facility] 04-02-2023 20:23-0400 Body weight 81.64 kg DO Jennifer Duran Work Phone: [facility] 03-29-2023 16:11-0400 Body temperature 97.8 [degF] DO Jennifer Duran Work Phone: [facility] 03-29-2023 16:11-0400 Diastolic blood pressure 79 mm[Hg] DO Jennifer Girivelisse Work Phone: [facility] 03-29-2023 16:11-0400 Heart rate 104 /min DO Jennifer Girivelisse Work Phone: [facility] 03-29-2023 16:11-0400 Respiratory rate 16 /min DO Jennifer Girvin Work Phone: [facility] 03-29-2023 16:11-0400 SaO2% (BldA) [Mass fraction] 98 % DO Jennifer Girivelisse Work Phone: [facility] 03-29-2023 16:11-0400 Systolic blood pressure 123 mm[Hg] DO Jennifer Girvin Work Phone: [facility] 03-29-2023 06:35-0400 Body height 165.1 cm DO Jennifer Girvin Work Phone: [facility] 03-29-2023 06:35-0400 Body weight 87.5 kg DO Jennifer Girvin Work Phone: [facility] 03-29-2023 05:41-0400 Diastolic blood pressure 85 mm[Hg] DO Jennifer Girvin Work Phone: [facility] 03-29-2023 05:41-0400 Heart rate 110 /min DO Jennifer Girivelisse Work Phone: [facility] 03-29-2023 05:41-0400 Respiratory rate 18 /min DO Jennifer Duran Work Phone: [facility] 03-29-2023 05:41-0400 SaO2% (BldA) [Mass fraction] 100 % DO Jennifer Duran Work Phone: [facility] 03-29-2023 05:41-0400 Systolic blood pressure 160 mm[Hg] DO Jennifer Girivelisse Work Phone: [facility] 03-29-2023 01:39-0400 Body height 165.1 cm DO Jennifer Girivelisse Work Phone: [facility] 03-29-2023 01:39-0400 Body temperature 97.2 [degF] DO Jennifer Girivelisse Work Phone: [facility] 03-29-2023 01:39-0400 Body weight 87 kg DO Jennifer Girivelisse Work Phone: [facility] 02-06-2023 04:00-0400 Diastolic blood pressure 74 mm[Hg] DO Jennifer Girvin Work Phone: [facility] 02-06-2023 04:00-0400 Heart rate 79 /min DO Jennifer Girvin Work Phone: [facility] 02-06-2023 04:00-0400 Respiratory rate 15 /min DO Jennifer Duran Work Phone: [facility] 02-06-2023 04:00-0400 SaO2% (BldA) [Mass fraction] 99 % DO Jennifer Duran Work Phone: [facility] 02-06-2023 04:00-0400 Systolic blood pressure 119 mm[Hg] DO Jennifer Duran Work Phone: [facility] 02-05-2023 23:41-0400 Body height 165.1 cm DO Jennifer Duran Work Phone: [facility] 02-05-2023 23:41-0400 Body temperature 98 [degF] DO Jennifer Duran Work Phone: [facility] 02-05-2023 23:41-0400 Body weight 81.64 kg DO Jennifer Duran Work Phone: [facility] 01-12-2023 14:40-0400 Body height 165.1 cm Jennifer Duran Other [employer] Other 01-12-2023 14:40-0400 Body mass index (BMI) [Ratio] 33.44 kg/m2 Jennifer Roger Other [employer] [facility] [employer] Other 01-12-2023 14:40-0400 Body temperature 99.5 [degF] Jennifer Duran Other [employer] Other 01-12-2023 14:40-0400 Body weight 91.17 kg Jennifer Kendallivelisse Other [employer] Other 01-12-2023 14:40-0400 Diastolic blood pressure 78 mm[Hg] Jennifer Duran Other [employer] Other 01-12-2023 14:40-0400 Respiratory rate 18 /min Jennifer Duran Other [employer] Other 01-12-2023 14:40-0400 SaO2% (BldA) [Mass fraction] 97 % Jennifer Duran Other [employer] Other 01-12-2023 14:40-0400 Systolic blood pressure 110 mm[Hg] Jennifer Duran Other [employer] Other 10-11-2022 16:20-0400 Body height 165.1 cm Jennifer Enochivelisse Other [employer] Other 07-12-2022 16:20-0500 Body height 165.1 cm Jennifer Duran Other [employer] Other 07-12-2022 16:20-0500 Body mass index (BMI) [Ratio] 31.2 kg/m2 Jennifer Roger Other [employer] Other 07-12-2022 16:20-0500 Body temperature 97.2 [degF] Jennifer Duran Other [employer] Other 07-12-2022 16:20-0500 Body weight 85.05 kg Jennifer Duran Other [employer] Other 07-12-2022 16:20-0500 Diastolic blood pressure 74 mm[Hg] Jennifer Duran Other [employer] Other 07-12-2022 16:20-0500 Respiratory rate 18 /min Jennifer Duran Other [facility] Other 07-12-2022 16:20-0500 SaO2% (BldA) [Mass fraction] 99 % Jennifer Duran Other [facility] Other 07-12-2022 16:20-0500 Systolic blood pressure 106 mm[Hg] Jennifer Duran Other [employer] Other 04-28-2022 04:00-0500 Diastolic blood pressure 70 mm[Hg] DO Jennifer Duran Work Phone: [facility] 04-28-2022 04:00-0500 Heart rate 81 /min DO Jennifer Duran Work Phone: [facility] 04-28-2022 04:00-0500 SaO2% (BldA) [Mass fraction] 96 % DO Jennifer Duran Work Phone: [facility] 04-28-2022 04:00-0500 Systolic blood pressure 110 mm[Hg] DO Jennifer Duran Work Phone: [facility] 04-28-2022 03:56-0500 Body height 165.1 cm DO Jennifer Duran Work Phone: [facility] 04-28-2022 03:56-0500 Body weight 80 kg DO Jennifer Duran Work Phone: [facility] 04-28-2022 03:56-0500 Respiratory rate 18 /min DO Jennifer Duran Work Phone: [facility] 04-28-2022 00:13-0500 Body temperature 97.2 [degF] DO Jennifer Duran Work Phone: [facility] 04-12-2022 15:40-0400 Body height 165.1 cm Jennifer Duran Other [employer] Other 04-12-2022 15:40-0400 Body mass index (BMI) [Ratio] 30.37 kg/m2 Jennifer Duran Other [facility] Other 04-12-2022 15:40-0400 Body temperature 98.8 [degF] Jennifer Duran Other [facility] Other 04-12-2022 15:40-0400 Body weight 82.78 kg Jennifer Enochivelisse Other [employer] Other 04-12-2022 15:40-0400 Diastolic blood pressure 76 mm[Hg] Jennifer Duran Other [facility] Other 04-12-2022 15:40-0400 Respiratory rate 18 /min Jennifer Duran Other [facility] Other 04-12-2022 15:40-0400 SaO2% (BldA) [Mass fraction] 98 % Jennifer Duran Other [facility] Other 04-12-2022 15:40-0400 Systolic blood pressure 110 mm[Hg] Jennifer Duran Other [employer] Other 04-09-2022 13:32-0400 Body temperature 97.59 [degF] Chair O'Fallon Work Phone: [facility] 04-09-2022 13:32-0400 Diastolic blood pressure 64 mm[Hg] Chair O'Fallon Work Phone: [facility] 04-09-2022 13:32-0400 Heart rate 114 /min Chair Patria Work Phone: [facility] 04-09-2022 13:32-0400 Respiratory rate 18 /min Chair O'Fallon Work Phone: [facility] 04-09-2022 13:32-0400 SaO2% (BldA) [Mass fraction] 97 % Chair Patria Work Phone: [facility] 04-09-2022 13:32-0400 Systolic blood pressure 116 mm[Hg] Chair Patria Work Phone: [facility] 03-26-2022 13:54-0400 Body temperature 97.9 [degF] Chair Patria Work Phone: [facility] 03-26-2022 13:54-0400 Diastolic blood pressure 75 mm[Hg] Chair Patria Work Phone: [facility] 03-26-2022 13:54-0400 Heart rate 82 /min Chair Patria Work Phone: [facility] 03-26-2022 13:54-0400 Respiratory rate 18 /min Chair O'Fallon Work Phone: [facility] 03-26-2022 13:54-0400 SaO2% (BldA) [Mass fraction] 100 % Chair O'Fallon Work Phone: [facility] 03-26-2022 13:54-0400 Systolic blood pressure 106 mm[Hg] Chair Patria Work Phone: [facility] 03-10-2022 13:54-0400 Body height 165.1 cm Gil Ni APRN.ASSOCIATE WEB DEVELOPER Work Phone: [facility] 03-10-2022 13:54-0400 Body temperature 97.9 [degF] Gil Ni APRN.ASSOCIATE WEB DEVELOPER Work Phone: [facility] 03-10-2022 13:54-0400 Body weight 83.37 kg Gil Ni APRN.ASSOCIATE WEB DEVELOPER Work Phone: [facility] 03-10-2022 13:54-0400 Diastolic blood pressure 75 mm[Hg] Gil Ni APRN.ASSOCIATE WEB DEVELOPER Work Phone: [facility] 03-10-2022 13:54-0400 Heart rate 95 /min Gil Ni APRN.ASSOCIATE WEB DEVELOPER Work Phone: [facility] 03-10-2022 13:54-0400 Respiratory rate 16 /min Gil Ni APRN.ASSOCIATE WEB DEVELOPER Work Phone: [facility] 03-10-2022 13:54-0400 SaO2% (BldA) [Mass fraction] 100 % Gil Ni APRN.ASSOCIATE WEB DEVELOPER Work Phone: [facility] 03-10-2022 13:54-0400 Systolic blood pressure 130 mm[Hg] Gil Ni APRN.ASSOCIATE WEB DEVELOPER Work Phone: [facility] 12-04-2021 12:49-0400 Blood Pressure Location Yamilka Orzech [facility] 12-04-2021 12:49-0400 Body temperature 98.42 [degF] Yamilka Orzech [facility] 12-04-2021 12:49-0400 Diastolic blood pressure 82 mm[Hg] Yamilka Orzech [facility] 12-04-2021 12:49-0400 Heart rate 110 /min Yamilka Orzech [facility] 12-04-2021 12:49-0400 SaO2% (BldA) [Mass fraction] 99 % Yamilka Orzech [facility] 12-04-2021 12:49-0400 Systolic blood pressure 126 mm[Hg] Yamilka Orzech [facility] 10-16-2021 09:10-0400 Body height 165.1 cm Jennifer Duran Other [facility] Other 09-14-2021 19:31-0400 Diastolic blood pressure 82 mm[Hg] DO Jennifer Duran Work Phone: [facility] 09-14-2021 19:31-0400 Heart rate 87 /min DO Jennifer Duran Work Phone: [facility] 09-14-2021 19:31-0400 Respiratory rate 18 /min DO Jennifer Duran Work Phone: [facility] 09-14-2021 19:31-0400 SaO2% (BldA) [Mass fraction] 99 % DO Jennifer Duran Work Phone: [facility] 09-14-2021 19:31-0400 Systolic blood pressure 126 mm[Hg] DO Jennifer Duran Work Phone: [facility] 09-14-2021 14:45-0400 Body height 165.1 cm DO Jennifer Duran Work Phone: [facility] 09-14-2021 14:45-0400 Body mass index (BMI) [Ratio] 30.7 kg/m2 DO Jennifer Duran Work Phone: [facility] 09-14-2021 14:45-0400 Body temperature 98 [degF] DO Jennifer Duran Work Phone: [facility] 09-14-2021 14:45-0400 Body weight 83.91 kg DO Jennifer Duran Work Phone: [facility] 04-21-2021 16:20-0500 Body height 165.1 cm Jennifer Duran Other [employer] Other 04-21-2021 16:20-0500 Body mass index (BMI) [Ratio] 32.28 kg/m2 Jennifer Duran Other [employer] Other 04-21-2021 16:20-0500 Body temperature 98.3 [degF] Jennifer Duran Other [employer] Other 04-21-2021 16:20-0500 Body weight 88 kg Jennifer Duran Other [facility] Other 04-21-2021 16:20-0500 Diastolic blood pressure 82 mm[Hg] Jennifer Duran Other [employer] Other 04-21-2021 16:20-0500 SaO2% (BldA) [Mass fraction] 98 % Jennifer Duran Other [facility] Other 04-21-2021 16:20-0500 Systolic blood pressure 124 mm[Hg] Jennifer Duran Other [employer] Other Encounters Encounter Date Encounter Type Care Provider Facility Start: 04-06-2024 End: 04-06-2024 Evaluation and management of inpatient NO PCP NO PCP [facility] Start: 04-05-2024 End: 04-05-2024 Emergency department patient visit NO PCP NO PCP [facility] Start: 04-03-2024 End: 04-03-2024 [place] Phone Call Provider 2 [facility] Start: 04-03-2024 End: 04-03-2024 Evaluation and management of inpatient NO PCP NO PCP [facility] Start: 03-30-2024 Patient encounter status Adiel Aparicio MD Work Phone: [facility] Start: 03-28-2024 End: 03-28-2024 Office outpatient visit 40 minutes Adiel Aparicio MD Work Phone: [facility] Comment on above: Endometriosis (Prima ry Dx); Preop testing Start: 03-28-2024 End: 03-28-2024 Patient encounter status Adiel Aparicio MD Work Phone: [facility] Start: 03-28-2024 Encounter for other preprocedural examination ADIEL APARICIO [facility] Start: 03-28-2024 End: 03-28-2024 Orders Only Adiel Aparicio MD Work Phone: [facility] Comment on above: Endometriosis (Prima ry Dx); Preop testing Start: 03-23-2024 End: 03-23-2024 [facility] Work Phone: Start: 03-23-2024 End: 03-23-2024 Patient encounter procedure [facility] Work Phone: Start: 03-07-2024 End: 03-07-2024 Emergency department patient visit NO PCP NO PCP [facility] Start: 03-03-2024 End: 03-03-2024 Emergency department patient visit Davi Marie DO Work Phone: [facility] Start: 02-24-2024 End: 02-24-2024 Emergency department patient visit Denton Delcid MD Work Phone: [facility] Start: 02-16-2024 End: 02-16-2024 Emergency department patient visit Jennifer Moore MD Work Phone: [facility] Start: 02-13-2024 End: 02-13-2024 Emergency department patient visit Ritesh Heath [facility] Start: 01-27-2024 End: 01-28-2024 Emergency department patient visit GUSTAVO DAVIES [facility] Start: 01-27-2024 End: 01-27-2024 Emergency department patient visit NO PCP NO PCP [facility] Start: 01-22-2024 End: 01-22-2024 Emergency department patient visit Eren Camejo DO Work Phone: [facility] ED Comment on above: Cyst of left ovary ( Primary Dx) Start: 01-19-2024 End: 01-19-2024 ambulatory DO Jennifer Duran Work Phone: [facility] Work Phone: Start: 01-19-2024 End: 01-19-2024 Patient encounter procedure DO Jennifer Duran Work Phone: [facility] Work Phone: Start: 12-07-2023 ambulatory DO Jennifer roberts Work Phone: [facility] Work Phone: Start: 12-07-2023 Non-patient / Non-visit DO Ponce Duran Work Phone: [facility] Work Phone: Start: 11-25-2023 End: 11-25-2023 Patient encounter procedure DO Jennifer Duran Work Phone: [facility]-CT Scan [facility] [place] Work Phone: Start: 11-25-2023 End: 11-25-2023 ambulatory DO Jennifer uDran Work Phone: [facility] Work Phone: Start: 11-23-2023 End: 11-23-2023 ambulatory [facility] Start: 11-09-2023 End: 11-09-2023 ambulatory [facility] Start: 11-08-2023 End: 11-08-2023 Emergency department patient visit DO Jennifer Duran Work Phone: [facility]Emergency Room Work Phone: Start: 11-08-2023 End: 11-08-2023 Emergency department patient visit Eren Camejo DO Work Phone: [facility] ED Comment on above: Toothache (Primary D x) Start: 10-25-2023 End: 10-26-2023 Emergency department patient visit CAMPBELLTON Dottie [facility] Start: 10-25-2023 End: 10-26-2023 Emergency department patient visit C[facility]BELLTON D[facility] Start: 10-25-2023 End: 10-25-2023 Emergency department patient visit NO PCP NO PCP [facility] Start: 10-25-2023 End: 10-26-2023 Emergency department patient visit CAMPBELLTON D[facility]ie [facility] Start: 10-19-2023 End: 10-19-2023 ambulatory TARUN BRADEN Not Available Start: 10-18-2023 End: 10-18-2023 ambulatory [facility] Work Phone: Start: 10-18-2023 End: 10-18-2023 Patient encounter procedure [facility] [place] Work Phone: Start: 09-29-2023 End: 09-30-2023 Emergency department patient visit Ritesh Heath [facility] Start: 09-26-2023 End: 09-26-2023 Emergency department patient visit Konstantin Penny [facility] Start: 09-06-2023 End: 09-06-2023 Emergency department patient visit DESTINI [facility] Start: 07-31-2023 End: 07-31-2023 Emergency department patient visit Jignesh Dumont [facility] Start: 07-28-2023 End: 07-28-2023 ambulatory PHYSICIAN NO [facility] Work Phone: Start: 07-28-2023 End: 07-28-2023 Patient encounter procedure PHYSICIAN NO [facility] [place] Work Phone: Start: 07-19-2023 End: 07-19-2023 ambulatory Jennifer Duran Other [facility] Other Start: 07-19-2023 Telephone encounter Jennifer Duran [facility] [place] Start: 06-22-2023 End: 06-23-2023 Emergency department patient visit EVGENY SEN MD Facility:[facility] Start: 06-07-2023 End: 06-07-2023 ambulatory Jennifer Duran Other [facility] Other Start: 06-07-2023 Telephone encounter Jennifer Duran [facility] [place] Start: 05-30-2023 End: 05-30-2023 Emergency department patient visit JACY Leos LES [facility] Start: 05-17-2023 End: 05-18-2023 Emergency department patient visit Ritesh Heath Facility:[facility] Start: 05-16-2023 End: 05-16-2023 ambulatory Jennifer Duran Other [employer] Other Start: 05-16-2023 Telephone encounter Jennifer Duran [facility] [place] Start: 04-30-2023 End: 04-30-2023 Emergency department patient visit DO Jennifer Duran Work Phone: [facility] Work Phone: Start: 04-24-2023 End: 04-24-2023 Emergency department patient visit Jignesh Dumont [facility] Start: 04-18-2023 End: 04-18-2023 ambulatory Jennifer Duran Other [employer] Other Start: 04-18-2023 Telephone encounter Jennifer Duran [facility] [place] Start: 04-11-2023 End: 04-11-2023 ambulatory Jennifer Duran Other [employer] Other Start: 04-11-2023 Telephone encounter Jennifer Duran [facility] [place] Start: 04-04-2023 End: 04-04-2023 ambulatory Jennifer Duran Other [employer] Other Start: 04-04-2023 Telephone encounter Jennifer Duran [facility] [place] Start: 04-02-2023 End: 04-03-2023 Emergency department patient visit DO Jennifer Duran Work Phone: [facility] Work Phone: Start: 04-01-2023 End: 04-01-2023 ambulatory Jennifer Duran Other [employer] Other Start: 04-01-2023 Telephone encounter Jennifer Duran [facility] [place] Start: 03-29-2023 Telephone encounter Jennifer MOLINA [facility] [place] Start: 03-29-2023 End: 03-29-2023 Evaluation and management of inpatient DO Jennifer Duran Work Phone: [facility] Work Phone: Start: 03-29-2023 End: 03-29-2023 observation encounter DO Jennifer Duran Work Phone: [facility] Work Phone: Start: 03-29-2023 End: 03-29-2023 ambulatory Jennifer Kendallivelisse [facility] Other Start: 03-13-2023 End: 03-13-2023 ambulatory DO Jennifer Duran Work Phone: [facility] Work Phone: Start: 03-13-2023 End: 03-13-2023 Patient encounter procedure DO Jennifer Duran Work Phone: [facility]-Flu Vaccine Start: 03-02-2023 End: 03-02-2023 ambulatory Jennifer Roger Other [employer] Other Start: 03-02-2023 Telephone encounter Jennifer Duran [facility] [place] Start: 02-05-2023 End: 02-06-2023 Emergency department patient visit DO Jennifer Duran Work Phone: [facility] Work Phone: Start: 01-12-2023 End: 01-12-2023 ambulatory Jennifer Duran Other [facility] Other Start: 01-12-2023 Office outpatient vi sit 15 minutes Jennifer Duran [facility] Start: 12-09-2022 End: 12-09-2022 ambulatory Jennifer Duran Other [employer] Other Start: 12-09-2022 Telephone encounter Jennifer Duran [facility] [place] Start: 10-11-2022 End: 10-11-2022 ambulatory Jennifer Duran Other [employer] Other Start: 10-11-2022 Telephone encounter Jennifer Duran [facility] Start: 09-22-2022 End: 09-22-2022 ambulatory Jennifer Duran Other [facility] Other Start: 09-22-2022 Telephone encounter Jennifer Duran [facility] [place] Start: 07-28-2022 End: 07-28-2022 ambulatory BELKIS JAIME Facility:[facility] Start: 07-12-2022 End: 07-12-2022 ambulatory Jennifer Roger Other [facility] Other Start: 07-12-2022 Office outpatient vi sit 15 minutes Jennifer Roger [facility] Start: 07-12-2022 Telephone encounter Jennifer Duran [facility] Start: 06-02-2022 End: 06-02-2022 ambulatory Jennifer Duran Other [facility] Other Start: 06-02-2022 Telephone encounter Jennifer Duran [facility] Start: 05-04-2022 End: 05-04-2022 ambulatory Jennifer Roger Other [facility] Other Start: 05-04-2022 Telephone encounter Jennifer Duran [facility] Start: 04-30-2022 Telephone encounter Gil arechiga APRN.ASSOCIATE WEB DEVELOPER Work Phone: Hematology/Oncology Comment on above: Lab Orders Start: 04-28-2022 Evaluation and management of inpatient DO Jennifer Duran Work Phone: [facility] [place] Start: 04-28-2022 observation encounter DO Jennifer Duran Work Phone: [facility] Work Phone: Start: 04-12-2022 End: 04-12-2022 ambulatory Jennifer Duran Other [employer] Other Start: 04-12-2022 Office outpatient vi sit 15 minutes Jennifer Duran [facility] Start: 04-12-2022 Telephone encounter Jennifer Duran [facility] Start: 04-09-2022 End: 04-10-2022 ambulatory Stephenie Suh 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 Comment on above: Art Therapy Iron deficiency anem ia due to chronic blood loss (Primary Dx); Malabsorption of iron; Cyst of left ovary Start: 03-26-2022 End: 03-27-2022 ambulatory GIL NI Facility:[facility] Start: 03-26-2022 End: 03-26-2022 ambulatory Chair Anton España Work Phone: Hematology/Oncology Comment on above: Iron deficiency anem ia due to chronic blood loss (Primary Dx); Malabsorption of iron; Cyst of left ovary Start: 03-15-2022 Telephone encounter Sharon Saavedra [facility] ematology/Oncology Comment on above: Social Work Services Start: 03-10-2022 End: 03-11-2022 ambulatory Gil Ni APRN.ASSOCIATE WEB DEVELOPER Work Phone: Hematology/Oncology Comment on above: Iron deficiency anem ia due to chronic blood loss (Primary Dx); Malabsorption of iron Start: 03-10-2022 End: 03-10-2022 Patient encounter procedure Gil Ni APRN.ASSOCIATE WEB DEVELOPER Work Phone: [facility] Start: 02-18-2022 Telephone encounter Gil arechiga [employer] SALES REPRESENTATIVE.ASSOCIATE WEB DEVELOPER Work Phone: Hematology/Oncology Comment on above: Lab Orders Start: 02-16-2022 End: 02-16-2022 ambulatory Jennifer Duran Other [employer] Other Start: 02-16-2022 Telephone encounter Jennifer Duran [facility] Start: 02-12-2022 End: 02-12-2022 Patient encounter procedure DO Jennifer Duran Work Phone: [facility] [place] Start: 01-07-2022 End: 01-07-2022 ambulatory Jennifer Duran Other [employer] Other Start: 01-07-2022 Telephone encounter Jennifer Duran [facility] [place] Start: 12-04-2021 End: 12-04-2021 Patient encounter procedure Yamilka Lorenzo [facility] Start: 10-29-2021 End: 10-29-2021 ambulatory Jennifer Duran Other [employer] Other Start: 10-29-2021 Telephone encounter Jennifer Duran [facility] [place] Start: 10-16-2021 End: 10-16-2021 ambulatory Jennifer Duran Other [employer] Other Start: 10-16-2021 Office outpatient vi sit 15 minutes Jennifer Duran [facility] [place] Start: 09-21-2021 End: 09-21-2021 ambulatory Jennifer Duran Other [employer] Other Start: 09-21-2021 Telephone encounter Jennifer Duran [facility] [place] Start: 09-14-2021 End: 09-14-2021 Emergency department patient visit DO Jennifer Duran Work Phone: [facility]Emergency [facility] Start: 08-18-2021 End: 08-18-2021 ambulatory Jennifer Duran Other [employer] Other Start: 08-18-2021 Telephone encounter Jennifer Duran [facility] [place] Start: 08-11-2021 End: 08-11-2021 ambulatory Jennifer Duran Other [employer] Other Start: 08-11-2021 Telephone encounter Jennifer Duran [facility] Start: 08-03-2021 End: 08-03-2021 ambulatory Jennifer Kendallivelisse Other [employer] Other Start: 08-03-2021 Telephone encounter Jennifer Enochivelisse [facility] Start: 07-04-2021 End: 07-04-2021 Patient encounter procedure DO Jennifer Duran Work Phone: [facility] [place] Start: 06-04-2021 End: 06-04-2021 ambulatory Jennifer Duran Other [employer] Other Start: 06-04-2021 Telephone encounter Jennifer Duran [facility] Start: 05-18-2021 End: 05-18-2021 ambulatory Jennifer Kendallivelisse Other [employer] Other Start: 05-18-2021 Telephone encounter Jennifer Duran [facility] Start: 04-21-2021 End: 04-21-2021 ambulatory Jennifer Enochivelisse Other [facility] Other Start: 04-21-2021 Encounter for genera l adult medical examination without abnormal findings Jennifer Duran [facility] Start: 04-21-2021 Periodic preventive med est patient 18-39 yrs Jennifer Duran [facility] Procedures Date Procedure Procedure Detail Performing Clinician Start: 03-28-2024 Follow-up visit Follow-up ADIEL APARICIO Start: 02-24-2024 Urinalysis microscopic only Denton Delcid MD Work Phone: Start: 02-24-2024 Urinalysis, reagent strip without microscopy Denton Delcid MD Work Phone: Start: 02-24-2024 Complete blood count with white cell differential, automated Denton Delcid MD Work Phone: Start: 02-24-2024 End: 02-24-2024 Comprehensive metabolic panel Denton Delcid MD Work Phone: Start: 02-16-2024 Ct abdomen & pelvis w/contrast material Jennifer Moore MD Work Phone: Start: 02-16-2024 Radiologic exam ches t single view Jennifer Moore MD Work Phone: Start: 02-16-2024 End: 02-16-2024 Albumin serum plasma/whole blood Jennifer Moore MD Work Phone: Start: 02-16-2024 Complete blood count with white cell differential, automated Jennifer Moore MD Work Phone: Start: 11-25-2023 CT of paranasal sinu s without contrast DO Jennifer Duran Work Phone: Start: 04-30-2023 Pelvic echography DO Pool Duran Work Phone: Start: 04-30-2023 Transvaginal echography DO Jennifer Duran Work Phone: Start: 03-29-2023 Computed tomography of abdomen and pelvis with contrast DO Jennifer Duran Work Phone: Start: 03-29-2023 Transvaginal echography DO Jennifer Duran Work Phone: Start: 03-29-2023 Pelvic echography DO Da keilad Roger Work Phone: Start: 02-06-2023 Pelvic echography DO Da vid Roger Work Phone: Start: 02-06-2023 Transvaginal echography DO Jennifer Duran Work Phone: Start: 02-05-2023 Computed tomography of abdomen and pelvis with contrast DO Jennifer Duran Work Phone: Start: 11-25-2021 Microscopic observat ion [Identifier] in Cervix by Cyto stain Adiel Aparicio MD Work Phone: Start: 09-14-2021 Computed tomography of abdomen and pelvis with contrast DO Jennifer Duran Work Phone: Start: 09-14-2021 Pelvic echography DO Da vid Roger Work Phone: Start: 09-14-2021 Transvaginal echography DO Jennifer Duran Work Phone: Plan of Treatment Date Care Activity Detail Author Start: 04-03-2025 Adult BMI Screening Adult BMI Screen ing [facility] Start: 04-03-2025 Tobacco Screening Tobacco Screening [facility] Start: 03-28-2025 Adult BMI Screening Adult BMI Screen ing [facility] Start: 03-07-2025 Adult BMI Screening Adult BMI Screen ing [facility] Start: 03-07-2025 Tobacco Screening Tobacco Screening [facility] Start: 11-25-2024 Screening for malign ant neoplasm of cervix Pap Smear [facility] Start: 04-20-2024 End: 04-20-2024 Patient encounter procedure 04/20/2024 1:30 PM EST Office Visit [facility] [address] [facility] [address] [place] [address] Shanae Frankel PA [address], [facility] [address] [place] [address] [facility] Start: 04-06-2024 End: 04-06-2024 Admission to same day surgery center [facility] - Surgery Comment on above: DAVINCI HYSTERECTOMY SALPINGECTOMY DAVINCI DV5 SALPINGO OOPHORECTOMY Start: 04-06-2024 End: 04-06-2024 DAVINCI DV5 SALPINGO OOPHORECTOMY DAVINCI DV5 SALPINGO OOPHORECTOMY endometriosis /pelvic pain 04/06/2024 11:00 AM EDT [facility] Start: 04-06-2024 End: 04-06-2024 DAVINCI HYSTERECTOMY SALPINGECTOMY DAVINCI HYSTERECTOMY SALPINGECTOMY endometriosis /pelvic pain 04/06/2024 11:00 AM EDT [facility] Start: 04-06-2024 End: 04-06-2024 Laparoscopy w/rmvl adnexal structures [facility] Start: 04-06-2024 Subsequent hospital visit by physician 04/06/2024 11:00 AM EDT Hospital Encounter [facility] - Surgery [address] [place] [phone] Adiel Aparicio MD [address] [facility], [address] [place], [place] [id number] [facility] Start: 04-03-2024 End: 04-03-2024 Admission to establishment 04/03/2024 3:45 PM EDT Support Visit [facility] [address] [place] [phone] [facility] Start: 02-12-2024 COVID-19 VACCINE () COVID-19 VACCINE () [facility] Start: 02-12-2024 Influenza vaccination [facility] Start: 01-12-2024 Influenza vaccination Flu vaccine (# 1) [facility] [employer] [facility] Start: 12-07-2023 Patient referral [facility] Work Phone: Start: 03-30-2023 Comprehensive metabo lic 2000 panel - Serum or Plasma [facility] Start: 03-30-2023 [facility] Start: 03-29-2023 [facility] Start: 03-29-2023 Referral to rib knitter [facility] Start: 03-29-2023 Hospital admission [facility] Start: 03-29-2023 [facility] Start: 03-29-2023 Computed tomography of abdomen and pelvis with contrast CT abdomen pelvis w con [facility] Start: 03-29-2023 CT Abdomen and Pelvi s W contrast IV [facility] Start: 03-29-2023 Transvaginal echography US transvagi nal [facility] Start: 03-29-2023 US Pelvis transvaginal [facility] Start: 03-29-2023 Pelvic echography US pelvic complete [facility] Start: 03-29-2023 US Pelvis [facility] Start: 02-11-2023 COVID-19 Vaccine () COVID-19 Vaccine () [facility] Start: 02-06-2023 Pelvic echography US pelvic complete [facility] Start: 02-06-2023 US Pelvis [facility] Start: 02-06-2023 Transvaginal echography US transvagi nal [facility] Start: 02-06-2023 US Pelvis transvaginal [facility] Start: 02-05-2023 Computed tomography of abdomen and pelvis with contrast CT abdomen pelvis w con [facility] Start: 02-05-2023 CT Abdomen and Pelvi s W contrast IV [facility] Start: 05-05-2022 End: 07-05-2022 CBC W Auto Differential panel - Blood CBC + DIFF Lab Routine Iron deficiency anemia due to chronic blood loss Malabsorption of iron Expected: 05/05/2022, Expires: 07/05/2022 [facility] Work Phone: Comment on above: Expected: 05/05/2022 , Expires: 07/05/2022 Start: 05-03-2022 End: 07-03-2022 Comprehensive metabolic 2000 panel - Serum or Plasma COMP METABOLIC PANEL Lab Routine Iron deficiency anemia due to chronic blood loss Expected: 05/03/2022, Expires: 07/03/2022 [facility] Work Phone: Comment on above: Expected: 05/03/2022 , Expires: 07/03/2022 Start: 04-28-2022 Pelvic echography US pelvic complete [facility] Start: 04-28-2022 US Pelvis [facility] Start: 04-28-2022 CT Abdomen and Pelvi s WO contrast [facility] Start: 04-28-2022 CT of abdomen and pe lvis without contrast CT abdomen pelvis wo con [facility] Start: 04-28-2022 Transvaginal echography US transvagi nal [facility] Start: 04-28-2022 US Pelvis transvaginal [facility] Start: 02-23-2022 End: 02-20-2023 CBC W Auto Differential panel - Blood CBC + DIFF Lab Routine Iron deficiency anemia due to chronic blood loss Expected: 02/23/2022 (Approximate), Expires: 02/20/2023 [facility] Work Phone: Comment on above: Expected: 02/23/2022 (Approximate), Expires: 02/20/2023 Start: 02-23-2022 End: 02-20-2023 Cobalamin (Vitamin B12) [Mass/volume] in Serum or Plasma VITAMIN B12 BLOOD Lab Routine Iron deficiency anemia due to chronic blood loss Expected: 02/23/2022 (Approximate), Expires: 02/20/2023 [facility] Work Phone: Comment on above: Expected: 02/23/2022 (Approximate), Expires: 02/20/2023 Start: 02-23-2022 End: 02-20-2023 Comprehensive metabolic 2000 panel - Serum or Plasma COMP METABOLIC PANEL Lab Routine Iron deficiency anemia due to chronic blood loss Expected: 02/23/2022 (Approximate), Expires: 02/20/2023 [facility] Work Phone: Comment on above: Expected: 02/23/2022 (Approximate), Expires: 02/20/2023 Start: 02-23-2022 End: 02-20-2023 Ferritin [Mass/volume] in Serum or Plasma FERRITIN BLD Lab Routine Iron deficiency anemia due to chronic blood loss Expected: 02/23/2022 (Approximate), Expires: 02/20/2023 [facility] Work Phone: Comment on above: Expected: 02/23/2022 (Approximate), Expires: 02/20/2023 Start: 02-23-2022 End: 02-20-2023 Folate [Mass/volume] in Serum or Plasma FOLATE SERUM Lab Routine Iron deficiency anemia due to chronic blood loss Expected: 02/23/2022 (Approximate), Expires: 02/20/2023 [facility] Work Phone: Comment on above: Expected: 02/23/2022 (Approximate), Expires: 02/20/2023 Start: 02-23-2022 End: 02-20-2023 Iron and Iron binding capacity panel - Serum or Plasma IRON + TIBC Lab Routine Iron deficiency anemia due to chronic blood loss Expected: 02/23/2022 (Approximate), Expires: 02/20/2023 [facility] Work Phone: Comment on above: Expected: 02/23/2022 (Approximate), Expires: 02/20/2023 Start: 02-11-2022 Influenza vaccination INFLUENZA (#1) [facility] Start: 06-13-2021 DEPRESSION ASSESSMENT DEPRESSION ASS ESSMENT [facility] Start: 11-30-2020 COVID-19 VACCINE (3 - Booster for Moderna series) COVID-19 VACCINE (3 - Booster for Moderna series) [facility] Start: 08-27-2020 COVID-19 VACCINE (3 - Booster for Moderna series) COVID-19 VACCINE (3 - Booster for Moderna series) [facility] Start: 2017 HPV TESTING HPV TESTING [facility] Start: 2017 Screening for malign ant neoplasm of cervix [facility] Start: 01-11-2008 PAP TESTING PAP TESTING [facility] Start: 01-11-2008 Screening for malign ant neoplasm of cervix [facility] Start: 2006 DTaP,Tdap and Td Vaccines (1 - Tdap) DTaP,Tdap and Td Vaccines (1 - Tdap) [facility] Start: 2006 DTaP/Tdap/Td vaccine (1 - Tdap) DTaP/Tdap/Td vaccine (1 - Tdap) [facility] Start: 2006 Hepatitis B vaccination HEP B VACCINE (1 of 3 - 19+ 3-dose series) [facility] Start: 2006 Hepatitis B vaccine (1 of 3 - 19+ 3-dose series) Hepatitis B vaccine (1 of 3 - 19+ 3-dose series) [facility] Start: 2006 Third diphtheria, tetanus and acellular pertussis (DTaP) vaccination TDAP (ADULT) [facility] Start: 2006 Urine microalbumin profile DTAP,TDAP,TD (1 - Tdap) [facility] Start: 2005 Adult BMI Follow Up Plan Adult BMI Follow Up Plan [facility] Start: 2005 HEPATITIS C SCREENING HEPATITIS C SC REENING [facility] Start: 2005 Hepatitis C screening Hepatitis C sc reen [facility] Start: 2005 HIV SCREENING HIV SCREENING [facility] Start: 2002 HIV screening [facility] Start: 01-11-2000 Varicella vaccine (1 of 2 - 13+ 2-dose series) Varicella vaccine (1 of 2 - 13+ 2-dose series) [facility] Start: 1999 Adult depression screening assessment DEPRESSION SCREENING [facility] Start: 1999 Depression Screen Depression Screen [facility] Start: 01-11-1988 Varicella vaccine (1 of 2 - 2-dose childhood series) Varicella vaccine (1 of 2 - 2-dose childhood series) [facility] Start: 1987 HEPATITIS B (1 of 3 - 3-dose series) HEPATITIS B (1 of 3 - 3-dose series) [facility] Start: 1987 Hepatitis B vaccine (1 of 3 - 3-dose series) Hepatitis B vaccine (1 of 3 - 3-dose series) [facility] Start: 1987 Hepatitis C screening HEPATITI S C VIRUS SCREENING [facility] Start: 1987 Tetanus vaccination TETANUS [facility] Sinuses WO contrast [facility] Patient Education [facility] Work Phone: Patient referral [facility] Work Phone: End: 02-16-2024 Standard ECG ECG ECG STAT One Time for 1 Occurrences starting 02/16/2024 until 02/16/2024 [facility] Comment on above: One Time for 1 Occur rences starting 02/16/2024 until 02/16/2024 End: 03-28-2025 Type and screen(includes indirect saw) Type and screen(includes indirect saw) Blood Bank Routine Endometriosis Preop testing 1 Occurrences starting 03/28/2024 until 03/28/2025 [facility] Work Phone: Comment on above: 1 Occurrences starti ng 03/28/2024 until 03/28/2025 [facility] Immunizations Immunization Date Immunization Notes Care Provider Iraj cevallos 06-09-2023 influenza, injectable, quadrivalent, contains preservative [facility] 06-09-2023 influenza virus vaccine, unspecified formulation Jennifer Moore MD Work Phone: [facility] 03-13-2023 influenza, injectable, quadrivalent, preservative free Jennifer Duran Other [facility] 03-31-2021 influenza, seasonal, injectable Jennifer Duran Other [facility] 07-02-2020 COVID-19 Vaccine Moderna - Documentation Purposes Only Jennifer Duran Other [facility] 06-04-2020 COVID-19 Vaccine Moderna - Documentation Purposes Only Jennifer Duran Other [facility] 12-10-2008 measles, mumps and rubella virus vaccine [facility] Care NEGATED: Highlighted row has not occurred!03-23-2019 influenza, seasonal, injectable Patient Objection Jennifer Duran Other [facility] Payers Date Payer Category Payer Self-pay [id number] 2020 [facility] Managed Care - Other [facility] [id number] 2018 Unknown [id number]. 1.13.159. 2.7.3.847336.315 1987 Unknown [id number] 2.16.840.1.701870.3.579. 2.593 1987 Unknown [id number] 2.16.840.1.398865.3.579. 2.182 1987 Unknown [id number] 2.16.840.1.972041.3.579. 2.1259 1987 Unknown [id number] 2.16.840.1.512950.3.579. 2.174 1987 Unknown [id number] 2.16.840.1.900786.3.579. 2.174 1987 Unknown [id number] 2.16.840.1.492234.3.579. 2.174 1987 Unknown [id number] 2.16.840.1.976758.3.579. 2.727 1987 Unknown [id number] 2.16.840.1.658094.3.579. 2.727 1987 Unknown [id number] 2.16.840.1.462437.3.579. 2.727 1987 Unknown [id number] 2.16.840.1.347523.3.579. 2.727 1987 Unknown [id number] 2.16.840.1.570903.3.579. 2.727 1987 Unknown [id number] 2.16.840.1.395321.3.579. 2.727 1987 Unknown [id number] 2.16.840.1.304031.3.579. 2.983 1987 Unknown [id number] 2.16.840.1.255198.3.579. 2.983 1987 Unknown [id number] 2.16.840.1.543133.3.579. 2.983 1987 Unknown [id number] 2.16.840.1.388565.3.579. 2.1285 1987 Unknown [id number] 2.16.840.1.987518.3.579. 2.1285 1987 Unknown [id number] 2.16.840.1.199800.3.579. 2.1285 1987 Unknown [id number] 2.840.1.857125.3.579. 2.1285 1987 Unknown [id number] 2.16840.1.928943.3.579. 2.1285 1987 Unknown [id number] 2.840.1.368039.3.579. 2.1285 1987 Unknown [id number] 2.840.1.470484.3.579. 2.1285 1987 Unknown [id number] 2.840.1.563040.3.579. 2.1285 1987 Unknown [id number] 2.840.1.146964.3.579. 2.1285 1987 Unknown [id number] 2.840.1.024662.3.579. 2.1285 1987 Unknown [id number] 2.840.1.070060.3.579. 2.1285 1987 Unknown [id number] 2.840.1.843029.3.579. 2.1285 1987 Unknown [id number] 2.840.1.297290.3.579. 2.1285 1987 Unknown [id number] .16840.1.811744.3.579. 2.1285 1987 Unknown [id number] 2.16.840.1.314523.3.579. 2.1285 1987 Unknown [id number] 2.16840.1.424624.3.579. 2.6 1959 Unknown [id number] Unknown [id number] Unknown [id number] Unknown [id number] 2.16.840.1.934892.3.579. 2.531 Unknown [id number] 2.16.840.1.541890.3.579. 2.531 Unknown [id number] 2.16.840.1.060063.3.579. 2.531 Unknown [id number] 2.16.840.1.839639.3.579. 2.531 Unknown [id number] 2.16.840.1.784013.3.579. 2.531 Social History Date Type Detail Facility Start: 09-14-2021 End: 05-25-2023 Tobacco smoking status NHIS Never smoked tobacco (finding) [facility] Start: 1985 Sex Assigned At Female [facility] Tobacco smoking status Never [facility] Start: 05-30-2023 End: 04-03-2024 Sex Assigned At Female [facility] Other Start: 04-05-2018 End: 05-25-2023 Tobacco use and exposure Smokeless tobacco non-user [facility] Start: 10-27-2020 End: 04-03-2024 Alcohol intake Current drinker of alcohol (finding) [facility] Start: 04-05-2018 End: 05-25-2023 History SDOH Alcohol Comment socially [facility] Start: 1987 Sex Assigned At Not on file [facility] Start: 02-06-2022 End: 04-09-2022 Exposure to SARS-CoV-2 (event) Not sure [facility] History of tobacco use Passive smoker [facility] Start: 09-05-2023 End: 01-22-2024 Alcohol intake Not Asked [facility] Start: 05-30-2023 End: 04-03-2024 History of Social function [employer] [facility] How often to you hav e a drink containing alcohol? Monthly or less [employer] How many standard drinks containing alcohol do you have on a typical day? 1 or 2 [employer] How often do you hav e 6 or more drinks on 1 occasion? Less than monthly [employer] [facility] Start: 05-30-2023 Alcohol Comment social [facility] Tobacco smoking stat [facility] Tobacco smoking consumption [facility] Start: 01-14-2015 Sex Female (finding) [email or web address] Start: 04-03-2024 Alcohol Comment monthly [facility] Goals Date Patient Goal Desired Activity /State Functional Status Date Assessment Result Facility 02-13-2024 Functional Status N/A [facility] 09-29-2023 Functional Status N/A [facility] 09-26-2023 Functional Status N/A [facility] 07-31-2023 Functional Status N/A [facility] 04-24-2023 Functional Status N/A [facility] 03-29-2023 Functional status Patient at Baseline [facility] Work Phone: 12-04-2021 Functional Status N/A [facility] Mental Status Date Assessment Result Facility 03-29-2023 Cognitive function Cognitive Sta tus Patient at Baseline [facility] Work Phone: Clinical Notes 03-19-2019 to 04-03-2024 Pre-Procedure Instructions - Lucy Dennison RN - 04/03/2024 3:45 PM EDTPre- Procedure Instructions - Lucy Dennison RN - 04/03/2024 3:45 PM Pankaj Aparicio MD - 03/28/2024 11:00 AM EDTAttachments Note Date & Type Note Facility 04-03-2024 Instructions Formatting of th is note might be different from the original. Your surgery/procedure is scheduled at [facility] on 04/06 at 1100 Arrival Time 0900 [facility] Address: [address] [place] [address]. [place] [address] [address] on [facility]. Report to the Entrance B. Check in at the information desk the surgery. The waiting room located on the second floor. If you have any questions prior to surgery, please call Pre-Admission Clinic at [phone] between 7:30 am and 4:30 pm Tuesday through Tuesday. If you have questions the morning of surgery, please call the Pre-op Department at [phone]. Notify your SURGEON if you develop any illness such as a cold, cough, fever, sore throat, vomiting or are hospitalized between now and your surgery. Medication Instructions (Do not stop your medications without consulting the prescribing physician). Take the following medications the morning of surgery with a sip of water: none Diabetic or Weight loss medications: N/A Take inhalers as prescribed the morning of surgery. Due to the risk associated with these medications. If these medications are not held per instruction below, your surgery is at an increased risk for cancellation. SGLT2 Medications- Hold 3 days prior to surgery: Jardiance, Empagliflozin, Farxiga, Dapagliflozin, Invokana, Canagliflozin, Trijardy, Synjardy GLP-1 Medications (Injection or Pill)- If taken daily hold day of surgery. If taken weekly, hold 1 week prior to surgery: Adlyxin, Byetta, Bydureon, Ozempic, Rybelsus,Trulicity, Victoza, Wegovy, Lixisenatide, Exenatide, Semaglutide, Dulaglutide, Liraglutide GIP/GLP-1(Injection or Pill)- If taken daily hold day of surgery. If taken weekly, hold 1 week prior to surgery: Mounjaro . Blood thinners: Please contact your prescribing physician regarding a stop/hold date for these medications. Medications such as Coumadin, Heparin, Aspirin, Plavix, Eliquis, Pradaxa Diabetics: If you take insulin, contact your prescribing doctor for instructions on how to manage this the night before and the morning of surgery. Non-steriodal Anti-Inflammatory Drugs (NSAIDS)- Hold 3 days prior to surgery unless otherwise directed by your surgeon. Vitamins/Herbal Products: You may continue to take your prescribed vitamins such as potassium, iron, vitamin B, vitamin C, or multivitamin unless specifically instructed by your surgeon to hold. STOP taking all herbal products/teas one week prior to your surgery. Marijuana: Stop marijuana 72 hours prior to surgery, stop CBD oil 48 hours prior to surgery. If you have been given bowel prep instructions by your surgeon, please call the surgeon's office with any questions about these instructions. What do I do the day of Surgery? Age 2 through adult - Stop all solids by midnight, You may have clear liquids up to 2 hours before surgery, unless otherwise instructed by your surgeon. Clear liquids are: water, sports drinks such as Gatorade or G2, or apple juice. You may NOT have: tube feedings, dairy products, alcoholic beverages, orange juice, or any liquids with solids or pulp in it. If applicable, shower again with CHG soap the morning of your surgery. If you received a green plastic bracelet, bring it with you the day of surgery and your nurse will put it on you. In order to help prevent infection post-operatively, you may be asked to use a CHG mouthwash when you arrive to the Pre-op area. Your nurse will provide instruction the morning of. What do I need to do to prepare for surgery? If you will be going home the same day as your surgery, arrange for an adult over [address] Riding in a bus or taxi by yourself is not permitted. You should not smoke or drink alcohol 24 hours before your surgery. Alcohol thins the blood and may cause bleeding problems during surgery. Smoking increases the risk of breathing problems after surgery. Do not use lotions, creams, powders, perfume, make up, cologne or after-shaves day of surgery. Remove ALL jewelry including wedding rings, body piercings (including dermal piercings ,hair extensions that contain metal, nail honduran, make-up, and contact lens. You may brush your teeth the morning of surgery, but do not swallow the water. Wear your dentures and partial plates to the hospital (no adhesive). Shower the night the before. If applicable, use the CHG (chlorhexidine gluconate) soap or wipes What should I bring to the hospital? If you received a green plastic bracelet, bring it with you the day of surgery and your nurse will put it on you. Eyeglass or contact lens case If you will be spending the night, please bring personal care items and leave them in the car until you are taken to your room after surgery. Leave ALL valuables at home. If any of these instructions conflict with those you received from the surgeon, please seek clarification from your surgeon's office. DEEP BREATHING EXERCISES This exercise helps promote good air exchange and helps to prevent pneumonia after surgery. Breathe in slowly and deeply through the nose. Hold your breath for a few seconds and then exhale slowly through the mouth. Repeat this three times and then cough.Coughing helps to clear your lungs. If you have had a surgery with an incision into your abdomen or chest, press gently against your incision with a pillow or a folded blanket when you cough. Please be aware - it may not be tao to cough following some types of surgeries involving the eyes, ears, sinuses and throat. Always follow your doctor's instructions. LEG EXERCISE These exercises help promote good circulation and help to prevent blood clots after surgery. Point your toes to the ceiling and then point them to the wall. Do this slowly about 15-20 times. You may also move your feet in circles. Do the exercise that is most comfortable for you. If you have had surgery involving your shoulder or arm, we recommend you move your fingers. PRACTICING We ask that you begin practicing these exercises before your surgery. After surgery try to do both exercises at least every 2 hours during the day and early evening. SURGICAL SITE INFECTION PREVENTION What is a Surgical Site Infection? Infection can happen to the area of the body where surgery is done. This is called a surgical site infection (SSI). A SSI does not happen very often. Can SSIs be treated? Antibiotics are used to treat SSI. Some patients may need another surgery to treat the infection. The doctor will discuss treatment options with you. What are some of the things that hospitals are doing to prevent SSIs? Soap and water or alcohol hand rub are used before and after caring for each patient. Special soap is used to clean surgery workers hands and arms just before the surgery. Masks, gowns, gloves and hair covers are worn during the surgery to keep the area clean. Hair in the surgery area may be removed with clippers (not razors). A special soap that kills germs is used to clean the skin at the surgery site. Antibiotics may be given before the surgery starts. What can you do to prevent SSIs? Before surgery: You may be asked to shower or bathe with a special soap that kills germs the night before and the day of surgery. Use the soap as you were told. If you smoke, stop or cut down. Ask your doctor about ways to quit. Do not shave near where you will have surgery. Shaving can irritate the skin and make it easier to get and infection. After surgery: Be sure that the doctors and nurses clean their hands before and after touching you. Be sure your family and friends clean their hands before and after visiting you. Do not be afraid to remind them. * Care for your wound at home as told by your doctor or nurse * Call your doctor right away if you have fever, redness, increased pain, or drainage at the surgery site. Further questions? Contact the doctor, nurse or the Infection Prevention and Control department if you have any questions. PATIENT RIGHTS AND RESPONSIBILITIES As a patient at [facility], you have the right to: Receive medical care and be informed of who is taking care of you Be treated with dignity and respect Have a family member/member service representative of choice and your physician notified of your admission Receive information and actively participate in decisions about your care and treatment Refuse care, treatment and services Decide who may provide your support and speak for you Access rastafarian and spiritual services Participate in ethical issues and questions about your care Receive private and confidential care Have appropriate assessment and management of your pain Know guest visitation restrictions or limitations Have an advance directive Access protective services Consent or refuse to participate in research studies or production or recordings, films or other images Have resolution of your complaints Receive information of hospital charges and payment methods Patient/patient member service representative responsibilities are to: Provide information about health status to facilitate care, treatment and services Follow the treatment, plan, keep appointments and speak up when you do not understand the plan Respect the rights of other patients and healthcare personnel Follow organizational rules and regulations that support quality care and a safe environment Fulfill financial obligations as promptly as possible [facility] 04-03-2024 Miscellaneous Notes Your surgery/procedure is scheduled at [facility] on 04/06 at 1100 Arrival Time 0900 [facility] Address: [address] [place] [address]. [place] [address] Park in [address] Parking [address] located on [facility]. Report to the Entrance B. Check in at the information desk the surgery. The waiting room located on the second floor. If you have any questions prior to surgery, please call Pre-Admission Clinic at [phone] between 7:30 am and 4:30 pm Tuesday through Tuesday. If you have questions the morning of surgery, please call the Pre-op Department at [phone]. Notify your SURGEON if you develop any illness such as a cold, cough, fever, sore throat, vomiting or are hospitalized between now and your surgery. Medication Instructions (Do not stop your medications without consulting the prescribing physician). Take the following medications the morning of surgery with a sip of water: none Diabetic or Weight loss medications: N/A Take inhalers as prescribed the morning of surgery. Due to the risk associated with these medications. If these medications are not held per instruction below, your surgery is at an increased risk for cancellation. SGLT2 Medications- Hold 3 days prior to surgery: Jardiance, Empagliflozin, Farxiga, Dapagliflozin, Invokana, Canagliflozin, Trijardy, Synjardy GLP-1 Medications (Injection or Pill)- If taken daily hold day of surgery. If taken weekly, hold 1 week prior to surgery: Adlyxin, Byetta, Bydureon, Ozempic, Rybelsus,Trulicity, Victoza, Wegovy, Lixisenatide, Exenatide, Semaglutide, Dulaglutide, Liraglutide GIP/GLP-1(Injection or Pill)- If taken daily hold day of surgery. If taken weekly, hold 1 week prior to surgery: Mounjaro . Blood thinners: Please contact your prescribing physician regarding a stop/hold date for these medications. Medications such as Coumadin, Heparin, Aspirin, Plavix, Eliquis, Pradaxa Diabetics: If you take insulin, contact your prescribing doctor for instructions on how to manage this the night before and the morning of surgery. Non-steriodal Anti-Inflammatory Drugs (NSAIDS)- Hold 3 days prior to surgery unless otherwise directed by your surgeon. Vitamins/Herbal Products: You may continue to take your prescribed vitamins such as potassium, iron, vitamin B, vitamin C, or multivitamin unless specifically instructed by your surgeon to hold. STOP taking all herbal products/teas one week prior to your surgery. Marijuana: Stop marijuana 72 hours prior to surgery, stop CBD oil 48 hours prior to surgery. If you have been given bowel prep instructions by your surgeon, please call the surgeon's office with any questions about these instructions. What do I do the day of Surgery? Age 2 through adult - Stop all solids by midnight, You may have clear liquids up to 2 hours before surgery, unless otherwise instructed by your surgeon. Clear liquids are: water, sports drinks such as Gatorade or G2, or apple juice. You may NOT have: tube feedings, dairy products, alcoholic beverages, orange juice, or any liquids with solids or pulp in it. If applicable, shower again with CHG soap the morning of your surgery. If you received a green plastic bracelet, bring it with you the day of surgery and your nurse will put it on you. In order to help prevent infection post-operatively, you may be asked to use a CHG mouthwash when you arrive to the Pre-op area. Your nurse will provide instruction the morning of. What do I need to do to prepare for surgery? If you will be going home the same day as your surgery, arrange for an adult over [address] Riding in a bus or taxi by yourself is not permitted. You should not smoke or drink alcohol 24 hours before your surgery. Alcohol thins the blood and may cause bleeding problems during surgery. Smoking increases the risk of breathing problems after surgery. Do not use lotions, creams, powders, perfume, make up, cologne or after-shaves day of surgery. Remove ALL jewelry including wedding rings, body piercings (including dermal piercings ,hair extensions that contain metal, nail honduran, make-up, and contact lens. You may brush your teeth the morning of surgery, but do not swallow the water. Wear your dentures and partial plates to the hospital (no adhesive). Shower the night the before. If applicable, use the CHG (chlorhexidine gluconate) soap or wipes What should I bring to the hospital? If you received a green plastic bracelet, bring it with you the day of surgery and your nurse will put it on you. Eyeglass or contact lens case If you will be spending the night, please bring personal care items and leave them in the car until you are taken to your room after surgery. Leave ALL valuables at home. If any of these instructions conflict with those you received from the surgeon, please seek clarification from your surgeon's office. DEEP BREATHING EXERCISES This exercise helps promote good air exchange and helps to prevent pneumonia after surgery. Breathe in slowly and deeply through the nose. Hold your breath for a few seconds and then exhale slowly through the mouth. Repeat this three times and then cough.Coughing helps to clear your lungs. If you have had a surgery with an incision into your abdomen or chest, press gently against your incision with a pillow or a folded blanket when you cough. Please be aware - it may not be tao to cough following some types of surgeries involving the eyes, ears, sinuses and throat. Always follow your doctor's instructions. LEG EXERCISE These exercises help promote good circulation and help to prevent blood clots after surgery. Point your toes to the ceiling and then point them to the wall. Do this slowly about 15-20 times. You may also move your feet in circles. Do the exercise that is most comfortable for you. If you have had surgery involving your shoulder or arm, we recommend you move your fingers. PRACTICING We ask that you begin practicing these exercises before your surgery. After surgery try to do both exercises at least every 2 hours during the day and early evening. SURGICAL SITE INFECTION PREVENTION What is a Surgical Site Infection? Infection can happen to the area of the body where surgery is done. This is called a surgical site infection (SSI). A SSI does not happen very often. Can SSIs be treated? Antibiotics are used to treat SSI. Some patients may need another surgery to treat the infection. The doctor will discuss treatment options with you. What are some of the things that hospitals are doing to prevent SSIs? Soap and water or alcohol hand rub are used before and after caring for each patient. Special soap is used to clean surgery workers hands and arms just before the surgery. Masks, gowns, gloves and hair covers are worn during the surgery to keep the area clean. Hair in the surgery area may be removed with clippers (not razors). A special soap that kills germs is used to clean the skin at the surgery site. Antibiotics may be given before the surgery starts. What can you do to prevent SSIs? Before surgery: You may be asked to shower or bathe with a special soap that kills germs the night before and the day of surgery. Use the soap as you were told. If you smoke, stop or cut down. Ask your doctor about ways to quit. Do not shave near where you will have surgery. Shaving can irritate the skin and make it easier to get and infection. After surgery: Be sure that the doctors and nurses clean their hands before and after touching you. Be sure your family and friends clean their hands before and after visiting you. Do not be afraid to remind them. * Care for your wound at home as told by your doctor or nurse * Call your doctor right away if you have fever, redness, increased pain, or drainage at the surgery site. Further questions? Contact the doctor, nurse or the Infection Prevention and Control department if you have any questions. PATIENT RIGHTS AND RESPONSIBILITIES As a patient at [facility], you have the right to: Receive medical care and be informed of who is taking care of you Be treated with dignity and respect Have a family member/member service representative of choice and your physician notified of your admission Receive information and actively participate in decisions about your care and treatment Refuse care, treatment and services Decide who may provide your support and speak for you Access rastafarian and spiritual services Participate in ethical issues and questions about your care Receive private and confidential care Have appropriate assessment and management of your pain Know guest visitation restrictions or limitations Have an advance directive Access protective services Consent or refuse to participate in research studies or production or recordings, films or other images Have resolution of your complaints Receive information of hospital charges and payment methods Patient/patient member service representative responsibilities are to: Provide information about health status to facilitate care, treatment and services Follow the treatment, plan, keep appointments and speak up when you do not understand the plan Respect the rights of other patients and healthcare personnel Follow organizational rules and regulations that support quality care and a safe environment Fulfill financial obligations as promptly as possible documented in this encounter [facility] 10-16-2024 History of Presen t illness Narrative Subjective: Livia is a 39 y.o. female here for consultation from Dr. Braden for evaluation and management of endometriosis and persistent pelvic pain. This patient has been evaluated and has had 3 laparoscopies for endometriosis, we did discuss her goals in terms of fertility versus pain control, she is potentially interested in exploring fertility options and we discussed referring her to Reproductive Endocrinology for further evaluation and she is amenable to this. We also discussed she may need either medical management with hormonal suppression or definitive surgical management to improve her pain. She was given both written and verbal information on all these choices. She had a conversation with Reproductive Endocrinology and subsequently has decided that she would like definitive surgical management to improve her pain, she and her has discussed thoroughly and to not desire future fertility. Oncology History No overview note Livia : Denies Early satiety Denies Abdominal distention Denies Leg swelling Denies Shortness of breath Denies Vaginal bleeding Denies Change in bowel habits Denies Change in bladder habits Denies Nausea and vomiting All other systems negative, unless specifically noted in HPI. Past Gynecologic History: OB History No obstetric history on file. No LMP recorded. Hormonal Contraceptives No HRT use No History of abnormal pap No No past surgical history on file. Past Medical History: Diagnosis Date Ovarian cyst No family history on file. Social History Tobacco Use Smoking status: Never Smokeless tobacco: Never Substance Use Topics Alcohol use: Yes Comment: socially Review of Symptoms: Pertinent items are noted in HPI. Objective: Ht 165.1 cm (5' 5 ) Wt 89.9 kg (198 lb 3.2 oz) BMI 32.98 kg/m ECO- Asymptomatic General appearance: alert, appears stated age and cooperative Head: Normocephalic, without obvious abnormality, atraumatic Ears: normal TM's and external ear canals both ears Neck: no adenopathy, no carotid bruit, no JVD, supple, symmetrical, trachea midline and thyroid not enlarged, symmetric, no tenderness/mass/nodules Lungs: clear to auscultation bilaterally Breasts: normal appearance, no masses or tenderness Heart: regular rate and rhythm, S1, S2 normal, no murmur, click, rub or gallop Abdomen: abnormal findings: Soft, nontender, nondistended, no rebound or guarding. Pelvic: Deferred today Extremities: extremities normal, atraumatic, no cyanosis or edema Pulses: 2+ and symmetric Skin: Skin color, texture, turgor normal. No rashes or lesions Lymph nodes: Cervical, supraclavicular, and axillary nodes normal. Neurologic: Grossly normal Labs: Lab Results Component Value Date WBC 5.2 03/28/2024 HGB 9.9 (L) 03/28/2024 HCT 31.3 (L) 03/28/2024 MCH 23.2 (L) 03/28/2024 MCHC 31.7 (L) 03/28/2024 PLT 457 (H) 03/28/2024 MPV 8.0 03/28/2024 RDW 18.7 (H) 03/28/2024 Lab Results Component Value Date BUN 10 03/28/2024 K 3.9 03/28/2024 CL 107 03/28/2024 ALBUMIN 4.0 03/28/2024 AST 14 03/28/2024 No results found for: GGT No results found for: LDH Lab Results Component Value Date MG 2.0 01/27/2024 No results found for: PHOS No results found for: URIC Assessment: Patient is diagnosed with Patient Active Problem List Diagnosis Endometriosis Preop testing Plan: 1. The patient has a documented plan of care to address pain. 2. Endometriosis-the patient would like to Proceed with definitive surgical management. Plan for minimally invasive hysterectomy with BSO. 3. Discussed the risks of surgery in detail including; bleeding, infection, damage to internal organs, risk of anesthesia including-clots, pneumonia, myocardial infarction, stroke and even . The patient understands the risks and elects to proceed. 4. Total time spent was 63 minutes: Preparing to see the patient (e.g., review of tests) Obtaining and/or reviewing separately obtained history Performing a medically appropriate examination and/or evaluation Counseling and educating the patient/family/caregiver Ordering medications, tests, or procedures Referring and communicating with other health healthcare representative (not separately reported) Documenting clinical information in the electronic or other health record Adiel Aparicio MD documented in this encounter [facility] 03-03-2024 Emergency department Note Emergency Department Report [facility] Service Date:.03/03/24 PCP: No primary care provider on file. Chief Complaint: Chief Complaint Patient presents with Abdominal Pain Patient states continued abdominal pain since being seen in this ED for same multiple times over the last month. Patient states pain worsened this AM. Patient states Hx of endometriosis. Patient denies falls and trauma to the abdomen. Patient denies nausea, vomiting, and diarrhea. Patient denies urinary symptoms. ALEXANDRIA Noyola is a 39 y.o. female presents to the ED today due to acute on chronic pain. Patient is having acute on chronic pain for months. Patient states she has seen [facility] specialist in [place], Dr. Mendoza, to have her uterus/hysterectomy secondary to endometriosis. Patient says that she then between PCPs at this point. Patient does have a OBGYN in [facility], Dr. Berrios. Patient states she is not , she does have her last period 5 days ago. Patient has no chest pain or shortness of breath. Patient is complaining of right lower quadrant pain. Patient has been to the ER several times this month for pain for endometriosis. Patient does not have her gallbladder. Patient does have her appendix. Patient has had ovarian cyst previously. No fever or chills. No nausea or vomiting or diarrhea. No other acute complaints. Patient has had multiple surgeries in the past and laparoscopic secondary to endometriosis. Review of Systems: Review of Systems Unless otherwise stated in this report or unable to obtain because of the patient's clinical or mental status as evidenced by medical record, the patient's positive and negative responses for review of systems for constitutional, eyes, ENT, cardiovascular, respiratory, gastrointestinal, neurological, , musculoskeletal, and integument systems and related systems to the presenting problem are either stated in the history of present illness or were not pertinent or were negative for the symptoms and/or complaints related to the presenting medical problem. Past Medical History: Past Medical History: Diagnosis Date Anxiety Endometriosis Past Surgical History: No past surgical history on file. Allergies: Allergies Allergen Reactions Morphine Hives and Itching Other Reaction(s): Other, Other: See Comments, Unknown, Unknown Reaction Other Reaction(s): Other: See Comments Spasms Spasms Other Reaction(s): Other: See Comments Spasms Spasms Atenolol Other Reaction(s): Dr. Cantu/ Dizzy Octacosanol Phenothiazines Anxiety and Itching Other Reaction(s): Jittery Medications: Discharge Medication List as of 03/03/2024 4:24 PM CONTINUE these medications which have NOT CHANGED Details ALPRAZolam 0.25 MG tablet Take 1 tablet by mouth. Historical Med Atenolol 25 MG tablet Take 1 tablet by mouth daily. Historical Med Citalopram 20 MG tablet Take 1 tablet by mouth daily. Historical Med clindamycin 300 MG capsule Historical Med Fluconazole 150 MG tablet TAKE 1 TABLET BY MOUTH ONCE Historical Med hydroCODone-acetaminophen 5-325 MG tablet TAKE 1 TABLET BY MOUTH EVERY 6 HOURS FOR 3 DAYS Historical MedPrescribe no greater than 7 days (adult) or 5 days (minor) for acute pain unless justification documented in chart ketorolac 10 MG tablet Take 1 tablet by mouth Every 6 hours as needed. Historical Med Multiple Vitamins-Iron (QC Daily Multivitamins/Iron) tablet Take 1 tablet by mouth daily. Historical Med nabumetone 750 MG tablet take 1 tablet by mouth every 12 hours as needed for pain Historical Med naloxone 4 MG/0.1ML 1 spray by Nasal route once for 1 dose. [place] into the nose as directed. Call 911. If no response in 2 minutes use a new nasal spray in other nostril. Repeat until help arrives. Normal Disp-1 Each, R-0 Ondansetron 4 MG Tab Dispersible tablet Place 1 tablet under tongue. Historical Med oxyCODONE-acetaminophen 5-325 MG per tablet Take 1 tablet by mouth every 6 hours as needed for Moderate Pain for up to 7 days. Print Disp-20 tablet, R-0Prescribe no greater than 7 days (adult) or 5 days (minor) for acute pain unless justification documented in chart traMADol 50 MG tablet TAKE 1 TABLET BY MOUTH EVERY 6 HOURS NEEDED FOR PAIN FOR UP TO 3 DAYS. TAKE LOWEST DOSE POSSIBLE Historical MedPrescribe no greater than 7 days (adult) or 5 days (minor) for acute pain unless justification documented in chart Family History: No family history on file. Social History: Social History Socioeconomic History Marital status: Spouse name: Not on file Number of children: Not on file Years of education: Not on file Highest education level: Not on file Occupational History Not on file Tobacco Use Smoking status: Never Smokeless tobacco: Never Vaping Use Vaping status: Never Used Substance and Sexual Activity Alcohol use: Yes Drug use: Never Sexual activity: Not on file Other Topics Concern Not on file Social History Narrative Not on file Social Determinants of Health Financial Resource Strain: Not on file Food Insecurity: No Food Insecurity (01/27/2024) Received from [facility] Hunger Screening Within the past 12 months we worried whether our food would run out before we got money to buy more.: Never True Within the past 12 months the food we bought just didn't last and we didn't have money to get more.: Never True Transportation Needs: Not on file Physical Activity: Not on file Stress: Not on file Social Connections: Unknown (03/22/2023) Received from [facility] Family and Community Support Help with Day-to-Day Activities: Not on file Lonely or Isolated: Not on file Intimate Partner Violence: Unknown (03/22/2023) Received from [facility] Abuse Screen Unsafe at Home or Work/School: Not on file Feels Threatened by Someone?: Not on file Does Anyone Keep You from Contacting Others or Doint Things Outside the Home?: Not on file Physical Sign of Abuse Present: Not on file Housing Stability: Unknown (03/22/2023) Received from [facility] Housing Stability Current Living Arrangements: Not on file Potentially Unsafe Housing Conditions: Not on file Physical Exam: Physical Exam Vital signs reviewed and patient is not hypoxic. General: The patient appears well and in no apparent distress. Patient is resting comfortably on cart. Not toxic, lethargic, or listless. Skin: Warm, dry, no pallor noted. There is no rash noted. Head: Normocephalic, atraumatic Eye: Normal conjunctiva, no drainage, EOMI. PERRL. Ears, Nose, Mouth, and Throat: oral mucosa is moist. Nares patent. Mouth without vesicles, no acute intraoral pathology. Cardiovascular: Regular Rate and Rhythm, no murmurs, gallops, or rubs Respiratory: Patient is in no distress, no accessory muscle use, lungs are clear to auscultation, no wheezing, rales or rhonchi Back: non-tender, no CVA tenderness bilaterally to percussion. NO CTLS midline or paraspinal tenderness to palpation. GI: Soft, patient does have [id number] tenderness to palpation over lower quadrant, no suprapubic tenderness to palpation, no left, or bilateral upper quadrant or midepigastric tenderness to palpation. No peritoneal signs. Patient was slightly guarded with palpation to right lower quadrant, otherwise no tenderness to palpation, no masses appreciated. No rebound, besides the right lower quadrant, no other guarding, or rigidity noted. That is suprapubic tenderness to palpation. Musculoskeletal: The patient has full range of motion of all extremities and joints with no difficulty. Patient has no motor, no sensory deficits. Neurological: A&O x4, normal speech, no focal neurological deficits. Psychiatric: Cooperative Vital Signs During ED Visit Patient Vitals for the past 24 hrs: BP Temp Temp src Pulse Resp SpO2 03/03/24 1527 164/84 98.7 F (37.1 C) Oral 115 18 97 % Orders/Results: Orders Placed This Encounter AMB REFERRAL TO OB-DIALER AMB REFERRAL TO CHRONIC PAIN CLINIC hydroCODone-acetaminophen (NORCO) 5-325 MG per tablet 1 tablet Results for orders placed or performed during the hospital encounter of 02/24/24 CBC, EDIF, PLATELET Result Value Ref Range WBC (WHITE BLOOD COUNT) 7.4 3.6 - 11.0 10*3/uL RBC 4.57 4.0 - 5.4 10*6/uL HEMOGLOBIN (HGB) 10.3 (L) 12.0 - 16.0 G/DL HEMATOCRIT (HCT) 33.6 (L) 36.0 - 48.0 % MEAN CELL VOLUME 73.5 (L) 80.0 - 100.0 FL Mean Cell HGB 22.7 (L) 26.0 - 35.0 PG MEAN CELL HGB CONCENTRATION 30.8 27.0 - 37.0 G/DL RBC DISTRIBUTION 17.1 (H) 11.5 - 14.5 % PLATELET COUNT 466 (H) 130 - 400 10*3/uL MEAN PLATELET VOLUME 7.9 7.4 - 11.0 FL DIFFERENTIAL TYPE AUTO DIFF % NEUTROPHILS 42.5 37.0 - 75.0 % LYMPHOCYTE 47.1 20.0 - 55.0 % MONOCYTE % 7.4 0.0 - 10.0 % EOSINOPHIL % 2.3 0.0 - 11.0 % BASOPHIL % 0.7 0.0 - 2.0 % Absolute Neutrophil Count 3.2 1.4 - 6.5 10*3/uL LYMPHOCYTES, ABSOLUTE 3.5 (H) 1.2 - 3.4 10*3/uL MONOCYTES, ABSOLUTE 0.5 0.0 - 0.7 10*3/uL ABSOLUTE EOSINOPHIL COUNT 0.2 0.0 - 0.7 10*3/uL ABSOLUTE BASOPHIL COUNT 0.1 0.0 - 0.2 10*3/uL COMPREHENSIVE METABOLIC PANEL Result Value Ref Range Glucose 81 70 - 100 MG/DL BUN 9 7 - 20 MG/DL CREATININE SERUM 0.80 0.7 - 1.2 MG/DL SODIUM 141 137 - 145 MMOL/L POTASSIUM 3.9 3.5 - 5.1 MMOL/L CHLORIDE 110 (H) 98 - 107 MMOL/L CALCIUM 8.8 8.4 - 10.2 MG/DL PROTEIN, TOTAL 7.7 6.3 - 8.2 GM/DL Albumin 4.1 3.5 - 5.0 G/dl BILIRUBIN, TOTAL 0.3 0.2 - 1.3 MG/DL AST 45 (H) 14 - 36 IU/L ALKALINE PHOSPHATASE 62 38 - 126 IU/L CARBON DIOXIDE (CO2) 23 22 - 30 MMOL/L A/G Ratio 1.1 (L) 1.3 - 2.2 RATIO ALT 23 <35 IU/L ESTIMATED GFR, NON AMER 86 ml/min/1.73sq.m ESTIMATED GFR, 104 ml/min/1.73sq.m GFR COMMENT Average GFR for 30-39 years old = 107. URINALYSIS, MACRO Result Value Ref Range COLOR, URINE YELLOW YELLOW APPEARANCE, URINE CLEAR CLEAR Specific Mcbrides, Urine 1.010 1.010 - 1.025 PH URINE 6.0 5.0 - 7.0 Urine Protein NEGATIVE NEGATIVE mg/dl GLUCOSE, URINE NEGATIVE NEGATIVE mg/dl KETONES, URINE NEGATIVE NEGATIVE mg/dl BILIRUBIN, URINE NEGATIVE NEGATIVE BLOOD, URINE DIPSTICK NEGATIVE NEGATIVE NITRITES, URINE NEGATIVE NEGATIVE UROBILINOGEN, URINE 0.2 0.2 - 1.0 E.U./dL LEUKOCYTE ESTERASE, URINE MODERATE (A) NEGATIVE HCG QUALITATIVE, URINE Result Value Ref Range HCG, QUALITATIVE, URINE NEGATIVE URINE MICROSCOPIC Result Value Ref Range WBC, URINE 1 TO 5 NEGATIVE /HPF RBC, URINE NEGATIVE NEGATIVE /HPF Epithelial Cells UA 5 TO 10 /HPF Mucus NEGATIVE NEGATIVE BACTERIA, URINE TRACE (A) NEGATIVE CRYSTALS, URINE NONE NONE CASTS, URINE NONE NONE /LPF COMMENT, URINE CULTURE CRITERIA NOT MET, NO CULTURE PERFORMED. Radiographic Imaging No orders to display Procedures: Procedures Moderate Sedation Procedure: No ED Summary/MDM Patient was recommended to have IV, urine testing, lab work and plus or minus CT scan depending with the lab work showed to rule out appendicitis, ovarian cyst, torsion, tubo-ovarian abscess, other acute abnormalities. Patient ultimately states she does not want IV lab work done, she knows with his pain is. 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 Patient has a functional decision-making capacity to decline any type of testing. She has no bowel or bladder changes. Patient just finished her menses 5 days ago., she is asking to help relieve the pain. OARRS report has been reviewed and this was discussed with the patient as well with her multiple prescribing physicians in the past 1.5 years. I will send tear, sat next to the patient, and asked her if she is dependent on opiates, or possibly going through withdrawal she does not get opiates. Patient declined. Patient understands the question, but state that she is not dependent on opiates. Patient was recommended call Dr. BRADEN on Tuesday, I did speak to the PA and office as well, ARLEEN Moreno; she is aware of patient's multiple ER visits, multiple prescriptions for pain medication, and trying to help treat patient's long-term chronic pain before he can have definitive treatment from Dr. Aparicio's in [place] for her endometriosis and hysterectomy which patient believes will help take care of the pain. Patient was given reasons why to return back to the ER, especially the pain in the right lower quadrant is intractable, getting worse, fever, nausea, vomiting, or any other acute concerns Clinical Impression: 1. RLQ abdominal pain 2. Pelvic joint pain, right No follow-ups on file. Discharge Medication List as of 03/03/2024 4:24 PM Discharge Medication List as of 03/03/2024 4:24 PM An After Visit Summary was printed and given to the patient with above information. . . Davi Marie DO 03/03/24 1701 Discharge instructions reviewed and given to pt. Verbalizes understanding and denies questions/concerns. Pt instructed to follow-up w/ OB and pain clinic. Pt informs this RN her grandmother is at ED to transport her home. grandmother is here to pick her up from ED. RR wnl. Pt ambulatory out of ED w/ steady gait documented in this encounter [facility] 03-03-2024 Physician Emergency department Note Emergency Department Report [facility] Service Date:.03/03/24 PCP: No primary care provider on file. Chief Complaint: Chief Complaint Patient presents with Abdominal Pain Patient states continued abdominal pain since being seen in this ED for same multiple times over the last month. Patient states pain worsened this AM. Patient states Hx of endometriosis. Patient denies falls and trauma to the abdomen. Patient denies nausea, vomiting, and diarrhea. Patient denies urinary symptoms. ALEXANDRIA Noyola is a 39 y.o. female presents to the ED today due to acute on chronic pain. Patient is having acute on chronic pain for months. Patient states she has seen [facility] [facility] specialist in [place], Dr. Mendoza, to have her uterus/hysterectomy secondary to endometriosis. Patient says that she then between PCPs at this point. Patient does have a OBGYN in [facility], Dr. Berrios. Patient states she is not , she does have her last period 5 days ago. Patient has no chest pain or shortness of breath. Patient is complaining of right lower quadrant pain. Patient has been to the ER several times this month for pain for endometriosis. Patient does not have her gallbladder. Patient does have her appendix. Patient has had ovarian cyst previously. No fever or chills. No nausea or vomiting or diarrhea. No other acute complaints. Patient has had multiple surgeries in the past and laparoscopic secondary to endometriosis. Review of Systems: Review of Systems Unless otherwise stated in this report or unable to obtain because of the patient's clinical or mental status as evidenced by medical record, the patient's positive and negative responses for review of systems for constitutional, eyes, ENT, cardiovascular, respiratory, gastrointestinal, neurological, , musculoskeletal, and integument systems and related systems to the presenting problem are either stated in the history of present illness or were not pertinent or were negative for the symptoms and/or complaints related to the presenting medical problem. Past Medical History: Past Medical History: Diagnosis Date Anxiety Endometriosis Past Surgical History: No past surgical history on file. Allergies: Allergies Allergen Reactions Morphine Hives and Itching Other Reaction(s): Other, Other: See Comments, Unknown, Unknown Reaction Other Reaction(s): Other: See Comments Spasms Spasms Other Reaction(s): Other: See Comments Spasms Spasms Atenolol Other Reaction(s): Dr. Cantu/ Justin Octacosanohayder Phenothiazines Anxiety and Itching Other Reaction(s): Jittery Medications: Discharge Medication List as of 03/03/2024 4:24 PM CONTINUE these medications which have NOT CHANGED Details ALPRAZolam 0.25 MG tablet Take 1 tablet by mouth. Historical Med Atenolol 25 MG tablet Take 1 tablet by mouth daily. Historical Med Citalopram 20 MG tablet Take 1 tablet by mouth daily. Historical Med clindamycin 300 MG capsule Historical Med Fluconazole 150 MG tablet TAKE 1 TABLET BY MOUTH ONCE Historical Med hydroCODone-acetaminophen 5-325 MG tablet TAKE 1 TABLET BY MOUTH EVERY 6 HOURS FOR 3 DAYS Historical MedPrescribe no greater than 7 days (adult) or 5 days (minor) for acute pain unless justification documented in chart ketorolac 10 MG tablet Take 1 tablet by mouth Every 6 hours as needed. Historical Med Multiple Vitamins-Iron (QC Daily Multivitamins/Iron) tablet Take 1 tablet by mouth daily. Historical Med nabumetone 750 MG tablet take 1 tablet by mouth every 12 hours as needed for pain Historical Med naloxone 4 MG/0.1ML 1 spray by Nasal route once for 1 dose. Benton into the nose as directed. Call 911. If no response in 2 minutes use a new nasal spray in other nostril. Repeat until help arrives. Normal Disp-1 Each, R-0 Ondansetron 4 MG Tab Dispersible tablet Place 1 tablet under tongue. Historical Med oxyCODONE-acetaminophen 5-325 MG per tablet Take 1 tablet by mouth every 6 hours as needed for Moderate Pain for up to 7 days. Print Disp-20 tablet, R-0Prescribe no greater than 7 days (adult) or 5 days (minor) for acute pain unless justification documented in chart traMADol 50 MG tablet TAKE 1 TABLET BY MOUTH EVERY 6 HOURS NEEDED FOR PAIN FOR UP TO 3 DAYS. TAKE LOWEST DOSE POSSIBLE Historical MedPrescribe no greater than 7 days (adult) or 5 days (minor) for acute pain unless justification documented in chart Family History: No family history on file. Social History: Social History Socioeconomic History Marital status: Spouse name: Not on file Number of children: Not on file Years of education: Not on file Highest education level: Not on file Occupational History Not on file Tobacco Use Smoking status: Never Smokeless tobacco: Never Vaping Use Vaping status: Never Used Substance and Sexual Activity Alcohol use: Yes Drug use: Never Sexual activity: Not on file Other Topics Concern Not on file Social History Narrative Not on file Social Determinants of Health Financial Resource Strain: Not on file Food Insecurity: No Food Insecurity (01/27/2024) Received from [facility] Hunger Screening Within the past 12 months we worried whether our food would run out before we got money to buy more.: Never True Within the past 12 months the food we bought just didn't last and we didn't have money to get more.: Never True Transportation Needs: Not on file Physical Activity: Not on file Stress: Not on file Social Connections: Unknown (03/22/2023) Received from [facility] Family and Community Support Help with Day-to-Day Activities: Not on file Lonely or Isolated: Not on file Intimate Partner Violence: Unknown (03/22/2023) Received from [facility] Abuse Screen Unsafe at Home or Work/School: Not on file Feels Threatened by Someone?: Not on file Does Anyone Keep You from Contacting Others or Doint Things Outside the Home?: Not on file Physical Sign of Abuse Present: Not on file Housing Stability: Unknown (03/22/2023) Received from [facility] Housing Stability Current Living Arrangements: Not on file Potentially Unsafe Housing Conditions: Not on file Physical Exam: Physical Exam Vital signs reviewed and patient is not hypoxic. General: The patient appears well and in no apparent distress. Patient is resting comfortably on cart. Not toxic, lethargic, or listless. Skin: Warm, dry, no pallor noted. There is no rash noted. Head: Normocephalic, atraumatic Eye: Normal conjunctiva, no drainage, EOMI. PERRL. Ears, Nose, Mouth, and Throat: oral mucosa is moist. Nares patent. Mouth without vesicles, no acute intraoral pathology. Cardiovascular: Regular Rate and Rhythm, no murmurs, gallops, or rubs Respiratory: Patient is in no distress, no accessory muscle use, lungs are clear to auscultation, no wheezing, rales or rhonchi Back: non-tender, no CVA tenderness bilaterally to percussion. NO CTLS midline or paraspinal tenderness to palpation. GI: Soft, patient does have [id number] tenderness to palpation over lower quadrant, no suprapubic tenderness to palpation, no left, or bilateral upper quadrant or midepigastric tenderness to palpation. No peritoneal signs. Patient was slightly guarded with palpation to right lower quadrant, otherwise no tenderness to palpation, no masses appreciated. No rebound, besides the right lower quadrant, no other guarding, or rigidity noted. That is suprapubic tenderness to palpation. Musculoskeletal: The patient has full range of motion of all extremities and joints with no difficulty. Patient has no motor, no sensory deficits. Neurological: A&O x4, normal speech, no focal neurological deficits. Psychiatric: Cooperative Vital Signs During ED Visit Patient Vitals for the past 24 hrs: BP Temp Temp src Pulse Resp SpO2 03/03/24 1527 164/84 98.7 F (37.1 C) Oral 115 18 97 % Orders/Results: Orders Placed This Encounter AMB REFERRAL TO OB-DIALER AMB REFERRAL TO CHRONIC PAIN CLINIC hydroCODone-acetaminophen (NORCO) 5-325 MG per tablet 1 tablet Results for orders placed or performed during the hospital encounter of 02/24/24 CBC, EDIF, PLATELET Result Value Ref Range WBC (WHITE BLOOD COUNT) 7.4 3.6 - 11.0 10*3/uL RBC 4.57 4.0 - 5.4 10*6/uL HEMOGLOBIN (HGB) 10.3 (L) 12.0 - 16.0 G/DL HEMATOCRIT (HCT) 33.6 (L) 36.0 - 48.0 % MEAN CELL VOLUME 73.5 (L) 80.0 - 100.0 FL Mean Cell HGB 22.7 (L) 26.0 - 35.0 PG MEAN CELL HGB CONCENTRATION 30.8 27.0 - 37.0 G/DL RBC DISTRIBUTION 17.1 (H) 11.5 - 14.5 % PLATELET COUNT 466 (H) 130 - 400 10*3/uL MEAN PLATELET VOLUME 7.9 7.4 - 11.0 FL DIFFERENTIAL TYPE AUTO DIFF % NEUTROPHILS 42.5 37.0 - 75.0 % LYMPHOCYTE 47.1 20.0 - 55.0 % MONOCYTE % 7.4 0.0 - 10.0 % EOSINOPHIL % 2.3 0.0 - 11.0 % BASOPHIL % 0.7 0.0 - 2.0 % Absolute Neutrophil Count 3.2 1.4 - 6.5 10*3/uL LYMPHOCYTES, ABSOLUTE 3.5 (H) 1.2 - 3.4 10*3/uL MONOCYTES, ABSOLUTE 0.5 0.0 - 0.7 10*3/uL ABSOLUTE EOSINOPHIL COUNT 0.2 0.0 - 0.7 10*3/uL ABSOLUTE BASOPHIL COUNT 0.1 0.0 - 0.2 10*3/uL COMPREHENSIVE METABOLIC PANEL Result Value Ref Range Glucose 81 70 - 100 MG/DL BUN 9 7 - 20 MG/DL CREATININE SERUM 0.80 0.7 - 1.2 MG/DL SODIUM 141 137 - 145 MMOL/L POTASSIUM 3.9 3.5 - 5.1 MMOL/L CHLORIDE 110 (H) 98 - 107 MMOL/L CALCIUM 8.8 8.4 - 10.2 MG/DL PROTEIN, TOTAL 7.7 6.3 - 8.2 GM/DL Albumin 4.1 3.5 - 5.0 G/dl BILIRUBIN, TOTAL 0.3 0.2 - 1.3 MG/DL AST 45 (H) 14 - 36 IU/L ALKALINE PHOSPHATASE 62 38 - 126 IU/L CARBON DIOXIDE (CO2) 23 22 - 30 MMOL/L A/G Ratio 1.1 (L) 1.3 - 2.2 RATIO ALT 23 <35 IU/L ESTIMATED GFR, NON AMER 86 ml/min/1.73sq.m ESTIMATED GFR, 104 ml/min/1.73sq.m GFR COMMENT Average GFR for 30-39 years old = 107. URINALYSIS, MACRO Result Value Ref Range COLOR, URINE YELLOW YELLOW APPEARANCE, URINE CLEAR CLEAR Specific Mcbrides, Urine 1.010 1.010 - 1.025 PH URINE 6.0 5.0 - 7.0 Urine Protein NEGATIVE NEGATIVE mg/dl GLUCOSE, URINE NEGATIVE NEGATIVE mg/dl KETONES, URINE NEGATIVE NEGATIVE mg/dl BILIRUBIN, URINE NEGATIVE NEGATIVE BLOOD, URINE DIPSTICK NEGATIVE NEGATIVE NITRITES, URINE NEGATIVE NEGATIVE UROBILINOGEN, URINE 0.2 0.2 - 1.0 E.U./dL LEUKOCYTE ESTERASE, URINE MODERATE (A) NEGATIVE HCG QUALITATIVE, URINE Result Value Ref Range HCG, QUALITATIVE, URINE NEGATIVE URINE MICROSCOPIC Result Value Ref Range WBC, URINE 1 TO 5 NEGATIVE /HPF RBC, URINE NEGATIVE NEGATIVE /HPF Epithelial Cells UA 5 TO 10 /HPF Mucus NEGATIVE NEGATIVE BACTERIA, URINE TRACE (A) NEGATIVE CRYSTALS, URINE NONE NONE CASTS, URINE NONE NONE /LPF COMMENT, URINE CULTURE CRITERIA NOT MET, NO CULTURE PERFORMED. Radiographic Imaging No orders to display Procedures: Procedures Moderate Sedation Procedure: No ED Summary/MDM Patient was recommended to have IV, urine testing, lab work and plus or minus CT scan depending with the lab work showed to rule out appendicitis, ovarian cyst, torsion, tubo-ovarian abscess, other acute abnormalities. Patient ultimately states she does not want IV lab work done, she knows with his pain is. 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 Patient has a functional decision-making capacity to decline any type of testing. She has no bowel or bladder changes. Patient just finished her menses 5 days ago., she is asking to help relieve the pain. OARRS report has been reviewed and this was discussed with the patient as well with her multiple prescribing physicians in the past 1.5 years. I will send tear, sat next to the patient, and asked her if she is dependent on opiates, or possibly going through withdrawal she does not get opiates. Patient declined. Patient understands the question, but state that she is not dependent on opiates. Patient was recommended call Dr. BRADEN on Tuesday, I did speak to the PA and office as well, ARLEEN Moreno; she is aware of patient's multiple ER visits, multiple prescriptions for pain medication, and trying to help treat patient's long-term chronic pain before he can have definitive treatment from Dr. Aparicio's in [place] for her endometriosis and hysterectomy which patient believes will help take care of the pain. Patient was given reasons why to return back to the ER, especially the pain in the right lower quadrant is intractable, getting worse, fever, nausea, vomiting, or any other acute concerns Clinical Impression: 1. RLQ abdominal pain 2. Pelvic joint pain, right No follow-ups on file. Discharge Medication List as of 03/03/2024 4:24 PM Discharge Medication List as of 03/03/2024 4:24 PM An After Visit Summary was printed and given to the patient with above information. . . Davi Marie DO 03/03/24 1706 [facility] 03-03-2024 Emergency department Note Discharge instructions reviewed and given to pt. Verbalizes understanding and denies questions/concerns. Pt instructed to follow-up w/ OB and pain clinic. Pt informs this RN her grandmother is at ED to transport her home. grandmother is here to pick her up from ED. RR wnl. Pt ambulatory out of ED w/ steady gait [facility] 03-03-2024 Hospital Discharg e instructions Davi Marie DO - 03/03/2024 4:[address] Wilson, your OBGYN in [place] to see if your appointment may be moved up. Call Dr. Braden in [place] on Tuesday to see if they will prescribe you pain medication if needed for long-term pain until you have definitive treatment for endometriosis. ARLEEN Moreno is aware of your visit to the ER today. You need to establish a PCP to help treat ongoing chronic problems as well. A local OBGYN and pain management has been referred to you as well. documented in this encounter [facility] 02-24-2024 Emergency department Note Emergency Department Report [facility] Service Date:.02/25/24 PCP: No primary care provider on file. Chief Complaint: Chief Complaint Patient presents with Abdominal Pain Pt presents to ER with complaints of abd pain that began 1 week ago pt sts it is intermittent and that she has a history of stage 4 endometriosis, pt sts she took toradol at 1830 and percocet at 1400 with no relief HPI Liviajacob Noyola is a 39 y.o. female presents to the ED today due to lower quadrant abdominal pain. Started 1 week ago in his intermittent. Tonight pain is 10/10. Took Toradol and Percocet at home with no relief. Patient was seen 1 week ago with same presentation given pain meds and placed on home pain meds. Patient has a history of endometriosis. Follows with physician in private practice in [place]. States she is waiting to be scheduled for a total hysterectomy. Last saw them in November as per records. She explains they just have not scheduled it yet but she is in constant pain. Review of records shows similar presentation at outlying facilities. Is here in [place] helping grandmother pack up to move to [place] with the rest of the family Review of Systems: Review of Systems Constitutional: Negative for chills and fever. HENT: Negative. Negative for congestion, ear pain, rhinorrhea, sore throat and trouble swallowing. Eyes: Negative for pain, discharge and visual disturbance. Respiratory: Negative for cough, chest tightness, shortness of breath and wheezing. Cardiovascular: Negative for chest pain, palpitations and leg swelling. Gastrointestinal: Negative for abdominal pain, diarrhea, nausea and vomiting. Endocrine: Negative. Genitourinary: Positive for pelvic pain. Negative for decreased urine volume, dysuria, frequency, hematuria and urgency. Musculoskeletal: Negative for back pain, gait problem and joint swelling. Skin: Negative for pallor, rash and wound. Allergic/Immunologic: Negative. Neurological: Negative for dizziness, syncope, light-headedness and headaches. Hematological: Negative. Psychiatric/Behavioral: Negative for confusion and suicidal ideas. The patient is not nervous/anxious. All other systems reviewed and are negative. Past Medical History: Past Medical History: Diagnosis Date Anxiety Endometriosis Past Surgical History: No past surgical history on file. Allergies: Allergies Allergen Reactions Morphine Hives and Itching Other Reaction(s): Other, Other: See Comments, Unknown, Unknown Reaction Other Reaction(s): Other: See Comments Spasms Spasms Other Reaction(s): Other: See Comments Spasms Spasms Atenolol Other Reaction(s): Dr. Cantu/ Justin Octacosanol Phenothiazines Anxiety and Itching Other Reaction(s): Jittery Medications: Discharge Medication List as of 02/24/2024 11:24 PM CONTINUE these medications which have NOT CHANGED Details ALPRAZolam 0.25 MG tablet Take 1 tablet by mouth. Historical Med Atenolol 25 MG tablet Take 1 tablet by mouth daily. Historical Med Citalopram 20 MG tablet Take 1 tablet by mouth daily. Historical Med clindamycin 300 MG capsule Historical Med Fluconazole 150 MG tablet TAKE 1 TABLET BY MOUTH ONCE Historical Med hydroCODone-acetaminophen 5-325 MG tablet TAKE 1 TABLET BY MOUTH EVERY 6 HOURS FOR 3 DAYS Historical MedPrescribe no greater than 7 days (adult) or 5 days (minor) for acute pain unless justification documented in chart ketorolac 10 MG tablet Take 1 tablet by mouth Every 6 hours as needed. Historical Med Multiple Vitamins-Iron (QC Daily Multivitamins/Iron) tablet Take 1 tablet by mouth daily. Historical Med nabumetone 750 MG tablet take 1 tablet by mouth every 12 hours as needed for pain Historical Med naloxone 4 MG/0.1ML 1 spray by Nasal route once for 1 dose. Benton into the nose as directed. Call 911. If no response in 2 minutes use a new nasal spray in other nostril. Repeat until help arrives. Normal Disp-1 Each, R-0 Ondansetron 4 MG Tab Dispersible tablet Place 1 tablet under tongue. Historical Med oxyCODONE-acetaminophen 5-325 MG per tablet Take 1 tablet by mouth every 6 hours as needed for Moderate Pain for up to 7 days. Print Disp-20 tablet, R-0Prescribe no greater than 7 days (adult) or 5 days (minor) for acute pain unless justification documented in chart traMADol 50 MG tablet TAKE 1 TABLET BY MOUTH EVERY 6 HOURS NEEDED FOR PAIN FOR UP TO 3 DAYS. TAKE LOWEST DOSE POSSIBLE Historical MedPrescribe no greater than 7 days (adult) or 5 days (minor) for acute pain unless justification documented in chart Family History: History reviewed. No pertinent family history. Social History: Social History Socioeconomic History Marital status: Spouse name: Not on file Number of children: Not on file Years of education: Not on file Highest education level: Not on file Occupational History Not on file Tobacco Use Smoking status: Never Smokeless tobacco: Never Vaping Use Vaping status: Never Used Substance and Sexual Activity Alcohol use: Yes Drug use: Never Sexual activity: Not on file Other Topics Concern Not on file Social History Narrative Not on file Social Determinants of Health Financial Resource Strain: Not on file Food Insecurity: No Food Insecurity (01/27/2024) Received from [facility] Hunger Screening Within the past 12 months we worried whether our food would run out before we got money to buy more.: Never True Within the past 12 months the food we bought just didn't last and we didn't have money to get more.: Never True Transportation Needs: Not on file Physical Activity: Not on file Stress: Not on file Social Connections: Unknown (03/22/2023) Received from [facility] Family and Community Support Help with Day-to-Day Activities: Not on file Lonely or Isolated: Not on file Intimate Partner Violence: Unknown (03/22/2023) Received from [facility] Abuse Screen Unsafe at Home or Work/School: Not on file Feels Threatened by Someone?: Not on file Does Anyone Keep You from Contacting Others or Doint Things Outside the Home?: Not on file Physical Sign of Abuse Present: Not on file Housing Stability: Unknown (03/22/2023) Received from [facility] Housing Stability Current Living Arrangements: Not on file Potentially Unsafe Housing Conditions: Not on file Physical Exam: Physical Exam Vital Signs During ED Visit Patient Vitals for the past 24 hrs: BP Temp Temp src Pulse Resp SpO2 Height 02/24/242028 129/72 98 F (36.7 C) Oral 94 20 99 % 1.651 m (5' 5 ) Orders/Results: Orders Placed This Encounter CBC, EDIF, PLATELET COMPREHENSIVE METABOLIC PANEL HYDROmorphone (DILAUDID) injection 0.5 mg Ondansetron 4mg/2ml (ZOFRAN) injection 4 mg HYDROmorphone (DILAUDID) injection 0.5 mg URINALYSIS HCG QUALITATIVE, URINE URINE MICROSCOPIC Results for orders placed or performed during the hospital encounter of 02/24/24 CBC, EDIF, PLATELET Result Value Ref Range WBC (WHITE BLOOD COUNT) 7.4 3.6 - 11.0 10*3/uL RBC 4.57 4.0 - 5.4 10*6/uL HEMOGLOBIN (HGB) 10.3 (L) 12.0 - 16.0 G/DL HEMATOCRIT (HCT) 33.6 (L) 36.0 - 48.0 % MEAN CELL VOLUME 73.5 (L) 80.0 - 100.0 FL Mean Cell HGB 22.7 (L) 26.0 - 35.0 PG MEAN CELL HGB CONCENTRATION 30.8 27.0 - 37.0 G/DL RBC DISTRIBUTION 17.1 (H) 11.5 - 14.5 % PLATELET COUNT 466 (H) 130 - 400 10*3/uL MEAN PLATELET VOLUME 7.9 7.4 - 11.0 FL DIFFERENTIAL TYPE AUTO DIFF % NEUTROPHILS 42.5 37.0 - 75.0 % LYMPHOCYTE 47.1 20.0 - 55.0 % MONOCYTE % 7.4 0.0 - 10.0 % EOSINOPHIL % 2.3 0.0 - 11.0 % BASOPHIL % 0.7 0.0 - 2.0 % Absolute Neutrophil Count 3.2 1.4 - 6.5 10*3/uL LYMPHOCYTES, ABSOLUTE 3.5 (H) 1.2 - 3.4 10*3/uL MONOCYTES, ABSOLUTE 0.5 0.0 - 0.7 10*3/uL ABSOLUTE EOSINOPHIL COUNT 0.2 0.0 - 0.7 10*3/uL ABSOLUTE BASOPHIL COUNT 0.1 0.0 - 0.2 10*3/uL COMPREHENSIVE METABOLIC PANEL Result Value Ref Range Glucose 81 70 - 100 MG/DL BUN 9 7 - 20 MG/DL CREATININE SERUM 0.80 0.7 - 1.2 MG/DL SODIUM 141 137 - 145 MMOL/L POTASSIUM 3.9 3.5 - 5.1 MMOL/L CHLORIDE 110 (H) 98 - 107 MMOL/L CALCIUM 8.8 8.4 - 10.2 MG/DL PROTEIN, TOTAL 7.7 6.3 - 8.2 GM/DL Albumin 4.1 3.5 - 5.0 G/dl BILIRUBIN, TOTAL 0.3 0.2 - 1.3 MG/DL AST 45 (H) 14 - 36 IU/L ALKALINE PHOSPHATASE 62 38 - 126 IU/L CARBON DIOXIDE (CO2) 23 22 - 30 MMOL/L A/G Ratio 1.1 (L) 1.3 - 2.2 RATIO ALT 23 <35 IU/L ESTIMATED GFR, NON AMER 86 ml/min/1.73sq.m ESTIMATED GFR, 104 ml/min/1.73sq.m GFR COMMENT Average GFR for 30-39 years old = 107. URINALYSIS, MACRO Result Value Ref Range COLOR, URINE YELLOW YELLOW APPEARANCE, URINE CLEAR CLEAR Specific Mcbrides, Urine 1.010 1.010 - 1.025 PH URINE 6.0 5.0 - 7.0 Urine Protein NEGATIVE NEGATIVE mg/dl GLUCOSE, URINE NEGATIVE NEGATIVE mg/dl KETONES, URINE NEGATIVE NEGATIVE mg/dl BILIRUBIN, URINE NEGATIVE NEGATIVE BLOOD, URINE DIPSTICK NEGATIVE NEGATIVE NITRITES, URINE NEGATIVE NEGATIVE UROBILINOGEN, URINE 0.2 0.2 - 1.0 E.U./dL LEUKOCYTE ESTERASE, URINE MODERATE (A) NEGATIVE HCG QUALITATIVE, URINE Result Value Ref Range HCG, QUALITATIVE, URINE NEGATIVE URINE MICROSCOPIC Result Value Ref Range WBC, URINE 1 TO 5 NEGATIVE /HPF RBC, URINE NEGATIVE NEGATIVE /HPF Epithelial Cells UA 5 TO 10 /HPF Mucus NEGATIVE NEGATIVE BACTERIA, URINE TRACE (A) NEGATIVE CRYSTALS, URINE NONE NONE CASTS, URINE NONE NONE /LPF COMMENT, URINE CULTURE CRITERIA NOT MET, NO CULTURE PERFORMED. Radiographic Imaging No orders to display Procedures: Procedures ED Summary/MDM Patient pacing in the room then sitting on bed rocking holding lower abdomen appearing in distress. At times she was tearful. Abdomen is soft with tenderness lower quadrants. Guarding. Urine CBC and CMP all within normal limits. Vital signs stable and patient afebrile. Reviewed CT abdomen pill from 1 week ago with no acute findings. I did review records from October and November from OBGYN with history of endometriosis. Three laparoscopic surgeries all which failed to rid patient was pain. I explained to patient that she had just been given a prescription for home pain medications and has been tried on multiple pain medications. I do not feel it was appropriate that I give her prescription for home as 1st they were not working and 2nd the etiology of the pain needed to be dealt with rather than constant treating the symptoms. I would treat her pain in the ED. I did give patient a dose Dilaudid and Zofran but she stated that failed to relieve her pain and requesting more pain medication. At that point I explained to patient that I would have to scan her again as failure to relieve pain with Toradol Percocet and Dilaudid was worrisome. Needed to rule out new and critical findings. Patient was given another small dose of Dilaudid and scan ordered.. . Patient then asked me to return to the room stating she just wanted to go home and did not want scan because she knows the results are always the same. I explained to patient we need to evaluate as conditions change. She continued to refused but was requesting more pain medication. I spoke with patient's for a bit of time stating that I felt that this was intractable pain and further evaluation with admission seemed appropriate. Patient refused. I offered to contact her physician in [place] and see if I could transfer her there but patient again refused. Grandmother came to drive patient home and she signed out AMA Clinical Impression: 1. Pelvic pain No follow-ups on file. Discharge Medication List as of 02/24/2024 11:24 PM Discharge Medication List as of 02/24/2024 11:24 PM An After Visit Summary was printed and given to the patient with above information. . Denton Delcid MD 02/25/24 0355 AMA form signed. Pt aware of risks and refuses hospital admission. Pt states grandmother is at facility to transport her home. Denies further needs at this time. Pt is a&o respirations are even and unlabored. Pt ambulatory out of ED w/ steady gait This RN and Dr. Delcid to bedside to speak to pt. Pt is refusing ct scan at this time. Dr. Delcid informs pt she would like to admit her for pain control. Pt is refusing admission and states she would rather be in pain at home than here pt is emotional at this time. Emotional support provided per Dr. Delcid. Dr. Delcid asks pt if she would like her to call her Doctor in [place] for possible transfer. Pt refuses. Pt states she does not want to be admitted anywhere and states will sign AMA form and call her pcp in the morning. Pt states pain has not improved after dilaudid administration. Dr. Delcid made aware Pt states her grandmother will transport her home if discharged documented in this encounter [facility] 02-24-2024 Physician Emergency department Note Emergency Department Report [facility] Service Date:.02/25/24 PCP: No primary care provider on file. Chief Complaint: Chief Complaint Patient presents with Abdominal Pain Pt presents to ER with complaints of abd pain that began 1 week ago pt sts it is intermittent and that she has a history of stage 4 endometriosis, pt sts she took toradol at 1830 and percocet at 1400 with no relief HPI Livia Noyola is a 39 y.o. female presents to the ED today due to lower quadrant abdominal pain. Started 1 week ago in his intermittent. Tonight pain is 10/10. Took Toradol and Percocet at home with no relief. Patient was seen 1 week ago with same presentation given pain meds and placed on home pain meds. Patient has a history of endometriosis. Follows with physician in private practice in [place]. States she is waiting to be scheduled for a total hysterectomy. Last saw them in November as per records. She explains they just have not scheduled it yet but she is in constant pain. Review of records shows similar presentation at outlying facilities. Is here in [place] helping grandmother pack up to move to [place] with the rest of the family Review of Systems: Review of Systems Constitutional: Negative for chills and fever. HENT: Negative. Negative for congestion, ear pain, rhinorrhea, sore throat and trouble swallowing. Eyes: Negative for pain, discharge and visual disturbance. Respiratory: Negative for cough, chest tightness, shortness of breath and wheezing. Cardiovascular: Negative for chest pain, palpitations and leg swelling. Gastrointestinal: Negative for abdominal pain, diarrhea, nausea and vomiting. Endocrine: Negative. Genitourinary: Positive for pelvic pain. Negative for decreased urine volume, dysuria, frequency, hematuria and urgency. Musculoskeletal: Negative for back pain, gait problem and joint swelling. Skin: Negative for pallor, rash and wound. Allergic/Immunologic: Negative. Neurological: Negative for dizziness, syncope, light-headedness and headaches. Hematological: Negative. Psychiatric/Behavioral: Negative for confusion and suicidal ideas. The patient is not nervous/anxious. All other systems reviewed and are negative. Past Medical History: Past Medical History: Diagnosis Date Anxiety Endometriosis Past Surgical History: No past surgical history on file. Allergies: Allergies Allergen Reactions Morphine Hives and Itching Other Reaction(s): Other, Other: See Comments, Unknown, Unknown Reaction Other Reaction(s): Other: See Comments Spasms Spasms Other Reaction(s): Other: See Comments Spasms Spasms Atenolol Other Reaction(s): Dr. Cantu/ Justin Octacosanol Phenothiazines Anxiety and Itching Other Reaction(s): Jittery Medications: Discharge Medication List as of 02/24/2024 11:24 PM CONTINUE these medications which have NOT CHANGED Details ALPRAZolam 0.25 MG tablet Take 1 tablet by mouth. Historical Med Atenolol 25 MG tablet Take 1 tablet by mouth daily. Historical Med Citalopram 20 MG tablet Take 1 tablet by mouth daily. Historical Med clindamycin 300 MG capsule Historical Med Fluconazole 150 MG tablet TAKE 1 TABLET BY MOUTH ONCE Historical Med hydroCODone-acetaminophen 5-325 MG tablet TAKE 1 TABLET BY MOUTH EVERY 6 HOURS FOR 3 DAYS Historical MedPrescribe no greater than 7 days (adult) or 5 days (minor) for acute pain unless justification documented in chart ketorolac 10 MG tablet Take 1 tablet by mouth Every 6 hours as needed. Historical Med Multiple Vitamins-Iron (QC Daily Multivitamins/Iron) tablet Take 1 tablet by mouth daily. Historical Med nabumetone 750 MG tablet take 1 tablet by mouth every 12 hours as needed for pain Historical Med naloxone 4 MG/0.1ML 1 spray by Nasal route once for 1 dose. Benton into the nose as directed. Call 911. If no response in 2 minutes use a new nasal spray in other nostril. Repeat until help arrives. Normal Disp-1 Each, R-0 Ondansetron 4 MG Tab Dispersible tablet Place 1 tablet under tongue. Historical Med oxyCODONE-acetaminophen 5-325 MG per tablet Take 1 tablet by mouth every 6 hours as needed for Moderate Pain for up to 7 days. Print Disp-20 tablet, R-0Prescribe no greater than 7 days (adult) or 5 days (minor) for acute pain unless justification documented in chart traMADol 50 MG tablet TAKE 1 TABLET BY MOUTH EVERY 6 HOURS NEEDED FOR PAIN FOR UP TO 3 DAYS. TAKE LOWEST DOSE POSSIBLE Historical MedPrescribe no greater than 7 days (adult) or 5 days (minor) for acute pain unless justification documented in chart Family History: History reviewed. No pertinent family history. Social History: Social History Socioeconomic History Marital status: Spouse name: Not on file Number of children: Not on file Years of education: Not on file Highest education level: Not on file Occupational History Not on file Tobacco Use Smoking status: Never Smokeless tobacco: Never Vaping Use Vaping status: Never Used Substance and Sexual Activity Alcohol use: Yes Drug use: Never Sexual activity: Not on file Other Topics Concern Not on file Social History Narrative Not on file Social Determinants of Health Financial Resource Strain: Not on file Food Insecurity: No Food Insecurity (01/27/2024) Received from [facility] Hunger Screening Within the past 12 months we worried whether our food would run out before we got money to buy more.: Never True Within the past 12 months the food we bought just didn't last and we didn't have money to get more.: Never True Transportation Needs: Not on file Physical Activity: Not on file Stress: Not on file Social Connections: Unknown (03/22/2023) Received from [facility] Family and Community Support Help with Day-to-Day Activities: Not on file Lonely or Isolated: Not on file Intimate Partner Violence: Unknown (03/22/2023) Received from [facility] Abuse Screen Unsafe at Home or Work/School: Not on file Feels Threatened by Someone?: Not on file Does Anyone Keep You from Contacting Others or Doint Things Outside the Home?: Not on file Physical Sign of Abuse Present: Not on file Housing Stability: Unknown (03/22/2023) Received from [facility] Housing Stability Current Living Arrangements: Not on file Potentially Unsafe Housing Conditions: Not on file Physical Exam: Physical Exam Vital Signs During ED Visit Patient Vitals for the past 24 hrs: BP Temp Temp src Pulse Resp SpO2 Height 02/24/242028 129/72 98 F (36.7 C) Oral 94 20 99 % 1.651 m (5' 5 ) Orders/Results: Orders Placed This Encounter CBC, EDIF, PLATELET COMPREHENSIVE METABOLIC PANEL HYDROmorphone (DILAUDID) injection 0.5 mg Ondansetron 4mg/2ml (ZOFRAN) injection 4 mg HYDROmorphone (DILAUDID) injection 0.5 mg URINALYSIS HCG QUALITATIVE, URINE URINE MICROSCOPIC Results for orders placed or performed during the hospital encounter of 02/24/24 CBC, EDIF, PLATELET Result Value Ref Range WBC (WHITE BLOOD COUNT) 7.4 3.6 - 11.0 10*3/uL RBC 4.57 4.0 - 5.4 10*6/uL HEMOGLOBIN (HGB) 10.3 (L) 12.0 - 16.0 G/DL HEMATOCRIT (HCT) 33.6 (L) 36.0 - 48.0 % MEAN CELL VOLUME 73.5 (L) 80.0 - 100.0 FL Mean Cell HGB 22.7 (L) 26.0 - 35.0 PG MEAN CELL HGB CONCENTRATION 30.8 27.0 - 37.0 G/DL RBC DISTRIBUTION 17.1 (H) 11.5 - 14.5 % PLATELET COUNT 466 (H) 130 - 400 10*3/uL MEAN PLATELET VOLUME 7.9 7.4 - 11.0 FL DIFFERENTIAL TYPE AUTO DIFF % NEUTROPHILS 42.5 37.0 - 75.0 % LYMPHOCYTE 47.1 20.0 - 55.0 % MONOCYTE % 7.4 0.0 - 10.0 % EOSINOPHIL % 2.3 0.0 - 11.0 % BASOPHIL % 0.7 0.0 - 2.0 % Absolute Neutrophil Count 3.2 1.4 - 6.5 10*3/uL LYMPHOCYTES, ABSOLUTE 3.5 (H) 1.2 - 3.4 10*3/uL MONOCYTES, ABSOLUTE 0.5 0.0 - 0.7 10*3/uL ABSOLUTE EOSINOPHIL COUNT 0.2 0.0 - 0.7 10*3/uL ABSOLUTE BASOPHIL COUNT 0.1 0.0 - 0.2 10*3/uL COMPREHENSIVE METABOLIC PANEL Result Value Ref Range Glucose 81 70 - 100 MG/DL BUN 9 7 - 20 MG/DL CREATININE SERUM 0.80 0.7 - 1.2 MG/DL SODIUM 141 137 - 145 MMOL/L POTASSIUM 3.9 3.5 - 5.1 MMOL/L CHLORIDE 110 (H) 98 - 107 MMOL/L CALCIUM 8.8 8.4 - 10.2 MG/DL PROTEIN, TOTAL 7.7 6.3 - 8.2 GM/DL Albumin 4.1 3.5 - 5.0 G/dl BILIRUBIN, TOTAL 0.3 0.2 - 1.3 MG/DL AST 45 (H) 14 - 36 IU/L ALKALINE PHOSPHATASE 62 38 - 126 IU/L CARBON DIOXIDE (CO2) 23 22 - 30 MMOL/L A/G Ratio 1.1 (L) 1.3 - 2.2 RATIO ALT 23 <35 IU/L ESTIMATED GFR, NON AMER 86 ml/min/1.73sq.m ESTIMATED GFR, 104 ml/min/1.73sq.m GFR COMMENT Average GFR for 30-39 years old = 107. URINALYSIS, MACRO Result Value Ref Range COLOR, URINE YELLOW YELLOW APPEARANCE, URINE CLEAR CLEAR Specific Mcbrides, Urine 1.010 1.010 - 1.025 PH URINE 6.0 5.0 - 7.0 Urine Protein NEGATIVE NEGATIVE mg/dl GLUCOSE, URINE NEGATIVE NEGATIVE mg/dl KETONES, URINE NEGATIVE NEGATIVE mg/dl BILIRUBIN, URINE NEGATIVE NEGATIVE BLOOD, URINE DIPSTICK NEGATIVE NEGATIVE NITRITES, URINE NEGATIVE NEGATIVE UROBILINOGEN, URINE 0.2 0.2 - 1.0 E.U./dL LEUKOCYTE ESTERASE, URINE MODERATE (A) NEGATIVE HCG QUALITATIVE, URINE Result Value Ref Range HCG, QUALITATIVE, URINE NEGATIVE URINE MICROSCOPIC Result Value Ref Range WBC, URINE 1 TO 5 NEGATIVE /HPF RBC, URINE NEGATIVE NEGATIVE /HPF Epithelial Cells UA 5 TO 10 /HPF Mucus NEGATIVE NEGATIVE BACTERIA, URINE TRACE (A) NEGATIVE CRYSTALS, URINE NONE NONE CASTS, URINE NONE NONE /LPF COMMENT, URINE CULTURE CRITERIA NOT MET, NO CULTURE PERFORMED. Radiographic Imaging No orders to display Procedures: Procedures ED Summary/MDM Patient pacing in the room then sitting on bed rocking holding lower abdomen appearing in distress. At times she was tearful. Abdomen is soft with tenderness lower quadrants. Guarding. Urine CBC and CMP all within normal limits. Vital signs stable and patient afebrile. Reviewed CT abdomen pill from 1 week ago with no acute findings. I did review records from October and November from OBGYN with history of endometriosis. Three laparoscopic surgeries all which failed to rid patient was pain. I explained to patient that she had just been given a prescription for home pain medications and has been tried on multiple pain medications. I do not feel it was appropriate that I give her prescription for home as 1st they were not working and 2nd the etiology of the pain needed to be dealt with rather than constant treating the symptoms. I would treat her pain in the ED. I did give patient a dose Dilaudid and Zofran but she stated that failed to relieve her pain and requesting more pain medication. At that point I explained to patient that I would have to scan her again as failure to relieve pain with Toradol Percocet and Dilaudid was worrisome. Needed to rule out new and critical findings. Patient was given another small dose of Dilaudid and scan ordered.. . Patient then asked me to return to the room stating she just wanted to go home and did not want scan because she knows the results are always the same. I explained to patient we need to evaluate as conditions change. She continued to refused but was requesting more pain medication. I spoke with patient's for a bit of time stating that I felt that this was intractable pain and further evaluation with admission seemed appropriate. Patient refused. I offered to contact her physician in [place] and see if I could transfer her there but patient again refused. Grandmother came to drive patient home and she signed out AMA Clinical Impression: 1. Pelvic pain No follow-ups on file. Discharge Medication List as of 02/24/2024 11:24 PM Discharge Medication List as of 02/24/2024 11:24 PM An After Visit Summary was printed and given to the patient with above information. . Denton Delcid MD 02/25/24 0355 [facility] 02-24-2024 Emergency department Note AMA form signed. Pt aware of risks and refuses hospital admission. Pt states grandmother is at facility to transport her home. Denies further needs at this time. Pt is a&o respirations are even and unlabored. Pt ambulatory out of ED w/ steady gait [facility]24 Emergency department Note This RN and Dr. Delcid to bedside to speak to pt. Pt is refusing ct scan at this time. Dr. Delcid informs pt she would like to admit her for pain control. Pt is refusing admission and states she would rather be in pain at home than here pt is emotional at this time. Emotional support provided per Dr. Delcid. Dr. Delcid asks pt if she would like her to call her Doctor in [place] for possible transfer. Pt refuses. Pt states she does not want to be admitted anywhere and states will sign AMA form and call her pcp in the morning. [facility] 02-24-2024 Emergency department Note Pt states pain has not improved after dilaudid administration. Dr. Delcid made aware [facility] 02-24-2024 Emergency department Note Pt states her grandmother will transport her home if discharged [facility] 02-16-2024 Emergency department Note Discharge instructions provided. Patient verbalized understanding. Denies any questions or concerns prior to discharge. Ambulatory out of ED with Rx X2. [facility] 02-16-2024 Emergency department Note Discharge instructions provided. Patient verbalized understanding. Denies any questions or concerns prior to discharge. Ambulatory out of ED with Rx X2. Patient states that pain is getting worse again. Dr Moore notified. No new orders received at this time. States he is waiting for CT results. Patient updated on plan. Pt taken to CT scan Emergency Department Report [facility] Service Date:.02/16/24 PCP: No primary care provider on file. Chief Complaint: Chief Complaint Patient presents with Abdominal Pain Patient states RLQ abdominal pain that started low mid abdomen with nausea since last night. Patient denies falls, trauma, and urinary symptoms. Patient states normal bowel movement yesterday and that she normally goes every other day. Patient states she was recently started on Augmentin for tooth infection. Patient states she took Ketorolac approximately 3 hours ago with no relief. HPI Livia Noyola is a 39 y.o. female presents to the ED today due to right lower quadrant abdominal pain. She does have a history of endometriosis and ovarian cyst but mostly these on the left, today it is on the right side. Nausea and vomiting is not present. Fever is not present. She has had cholecystectomy but not appendectomy. She still has both of her ovaries. Review of Systems: Review of Systems Constitutional symptoms: no Fatigue, no fever, no chills. Skin symptoms: Negative except as documented in HPI. ENMT symptoms: Negative except as documented in HPI. Respiratory symptoms: Negative except as documented in HPI. Cardiovascular symptoms: Negative except as documented in HPI. Gastrointestinal symptoms: Negative except for documented as above in the HPI, right lower quadrant abdominal pain Genitourinary symptoms: Negative except as documented in HPI. Musculoskeletal symptoms: Negative except as documented in HPI. Neurologic symptoms: Negative except as documented in HPI. Remainder of 10 systems, all negative except for mentioned above Past Medical History: Past Medical History: Diagnosis Date Anxiety Past Surgical History: No past surgical history on file. Allergies: Allergies Allergen Reactions Morphine Hives and Itching Other Reaction(s): Other, Other: See Comments, Unknown, Unknown Reaction Other Reaction(s): Other: See Comments Spasms Spasms Other Reaction(s): Other: See Comments Spasms Spasms Atenolol Other Reaction(s): Dr. Cantu/ Justin Octacosanol Phenothiazines Anxiety and Itching Other Reaction(s): Jittery Medications: Patient's Medications New Prescriptions NALOXONE 4 MG/0.1ML 1 spray by Nasal route once for 1 dose. Benton into the nose as directed. Call 911. If no response in 2 minutes use a new nasal spray in other nostril. Repeat until help arrives. OXYCODONE-ACETAMINOPHEN 5-325 MG PER TABLET Take 1 tablet by mouth every 6 hours as needed for Moderate Pain for up to 7 days. Previous Medications ALPRAZOLAM 0.25 MG TABLET Take 1 tablet by mouth. AMOXICILLIN-CLAVULANATE 875-125 MG TABLET Take by mouth. ATENOLOL 25 MG TABLET Take 1 tablet by mouth daily. CITALOPRAM 20 MG TABLET Take 1 tablet by mouth daily. CLINDAMYCIN 300 MG CAPSULE FLUCONAZOLE 150 MG TABLET TAKE 1 TABLET BY MOUTH ONCE HYDROCODONE-ACETAMINOPHEN 5-325 MG TABLET TAKE 1 TABLET BY MOUTH EVERY 6 HOURS FOR 3 DAYS KETOROLAC 10 MG TABLET Take 1 tablet by mouth Every 6 hours as needed. MULTIPLE VITAMINS-IRON (QC DAILY MULTIVITAMINS/IRON) TABLET Take 1 tablet by mouth daily. NABUMETONE 750 MG TABLET take 1 tablet by mouth every 12 hours as needed for pain ONDANSETRON 4 MG TAB DISPERSIBLE TABLET Place 1 tablet under tongue. TRAMADOL 50 MG TABLET TAKE 1 TABLET BY MOUTH EVERY 6 HOURS NEEDED FOR PAIN FOR UP TO 3 DAYS. TAKE LOWEST DOSE POSSIBLE Modified Medications No medications on file Discontinued Medications OXYCODONE-ACETAMINOPHEN 5-325 MG PER TABLET TAKE 1 TABLET BY MOUTH EVERY 6 HOURS NEEDED FOR PAIN FOR UP TO 3 DAYS Family History: No family history on file. Social History: Social History Socioeconomic History Marital status: Spouse name: Not on file Number of children: Not on file Years of education: Not on file Highest education level: Not on file Occupational History Not on file Tobacco Use Smoking status: Not on file Smokeless tobacco: Not on file Substance and Sexual Activity Alcohol use: Not on file Drug use: Not on file Sexual activity: Not on file Other Topics Concern Not on file Social History Narrative Not on file Social Determinants of Health Financial Resource Strain: Not on file Food Insecurity: No Food Insecurity (01/27/2024) Received from [facility] Hunger Screening Within the past 12 months we worried whether our food would run out before we got money to buy more.: Never True Within the past 12 months the food we bought just didn't last and we didn't have money to get more.: Never True Transportation Needs: Not on file Physical Activity: Not on file Stress: Not on file Social Connections: Unknown (03/22/2023) Received from [facility] Family and Community Support Help with Day-to-Day Activities: Not on file Lonely or Isolated: Not on file Intimate Partner Violence: Unknown (03/22/2023) Received from [facility] Abuse Screen Unsafe at Home or Work/School: Not on file Feels Threatened by Someone?: Not on file Does Anyone Keep You from Contacting Others or Doint Things Outside the Home?: Not on file Physical Sign of Abuse Present: Not on file Housing Stability: Unknown (03/22/2023) Received from [facility] Housing Stability Current Living Arrangements: Not on file Potentially Unsafe Housing Conditions: Not on file Physical Exam: Physical Exam CONST: -Well-developed well-nourished ; -In no acute distress. -Vitals reviewed. EYES: -EOM intact, KOLBY: -Sclera normal and conjunctiva: clear bilaterally. ENT: - Normal pharynx pink and moist. NECK: -Supple ([id number]). CARD: -Rate and rhythm: Regular -Murmurs: No RESP: -Respiratory effort and chest excursion with respirations: Normal -Breath sounds equal bilaterally: Clear -Wheezes: No -Rales: No BACK: -Flank pain: No -Pain on palpation: No ABD: -Distended: No -Bruits: No -Bowel sounds: Normal. -Deep palpation: Tender right lower quadrant -Organomegaly palpable: No -Abnormal masses: No EXT: Gross appearance and use of all four extremities: Normal SKIN: -Good turgor warm and dry. -Apparent lesions or rashes: No NEURO: -Patient: alert -Oriented to: person, place and time. -Appearance and judgment: appropriate. -Cranial Nerves: Normal. -Speech: Normal Vital Signs During ED Visit Patient Vitals for the past 24 hrs: BP Temp Temp src Pulse Resp SpO2 02/16/24 1638 115/68 -- -- 98 18 96 % 02/16/24 1540 125/70 -- -- 110 20 100 % 02/16/24 1500 118/75 -- -- 84 -- 97 % 02/16/24 1428 124/86 -- -- 85 20 96 % 02/16/24 1328 (!) 133/105 98.3 F (36.8 C) Oral 103 18 100 % Orders/Results: Orders Placed This Encounter XR CHEST [address] ABDOMEN/PELVIS WITH CONTRAST CBC, EDIF, PLATELET PROTIME-INR CHEM 7 (LYTES,BUN,CREA,GLUC) HEPATIC FUNCTION PANEL LIPASE ECG Sodium chloride 0.9% IV solution 500 mL HYDROmorphone (DILAUDID) injection 1 mg Ondansetron 4mg/2ml (ZOFRAN) injection 4 mg iohexol (OMNIPAQUE) 350 MG/ML injection 75 mL Sodium chloride 0.9% IV solution 75 mL HYDROmorphone (DILAUDID) injection 0.5 mg oxyCODONE-acetaminophen 5-325 MG per tablet naloxone 4 MG/0.1ML HCG QUALITATIVE, URINE Results for orders placed or performed during the hospital encounter of 02/16/24 CBC, EDIF, PLATELET Result Value Ref Range WBC (WHITE BLOOD COUNT) 5.1 3.6 - 11.0 10*3/uL RBC 4.81 4.0 - 5.4 10*6/uL HEMOGLOBIN (HGB) 10.9 (L) 12.0 - 16.0 G/DL HEMATOCRIT (HCT) 35.2 (L) 36.0 - 48.0 % MEAN CELL VOLUME 73.0 (L) 80.0 - 100.0 FL Mean Cell HGB 22.6 (L) 26.0 - 35.0 PG MEAN CELL HGB CONCENTRATION 30.9 27.0 - 37.0 G/DL RBC DISTRIBUTION 17.0 (H) 11.5 - 14.5 % PLATELET COUNT 529 (H) 130 - 400 10*3/uL MEAN PLATELET VOLUME 7.3 (L) 7.4 - 11.0 FL DIFFERENTIAL TYPE AUTO DIFF % NEUTROPHILS 52.2 37.0 - 75.0 % LYMPHOCYTE 40.3 20.0 - 55.0 % MONOCYTE % 5.6 0.0 - 10.0 % EOSINOPHIL % 0.5 0.0 - 11.0 % BASOPHIL % 1.4 0.0 - 2.0 % Absolute Neutrophil Count 2.7 1.4 - 6.5 10*3/uL LYMPHOCYTES, ABSOLUTE 2.1 1.2 - 3.4 10*3/uL MONOCYTES, ABSOLUTE 0.3 0.0 - 0.7 10*3/uL ABSOLUTE EOSINOPHIL COUNT 0.0 0.0 - 0.7 10*3/uL ABSOLUTE BASOPHIL COUNT 0.1 0.0 - 0.2 10*3/uL PROTIME-INR Result Value Ref Range PT 12.2 11.8 - 14.4 SEC INR 0.89 0.88 - 1.14 CHEM 7 (LYTES,BUN,CREA,GLUC) Result Value Ref Range Glucose 106 (H) 70 - 100 MG/DL BUN 8 7 - 20 MG/DL CREATININE SERUM 0.70 0.7 - 1.2 MG/DL SODIUM 139 137 - 145 MMOL/L POTASSIUM 3.8 3.5 - 5.1 MMOL/L CHLORIDE 109 (H) 98 - 107 MMOL/L CARBON DIOXIDE (CO2) 22 22 - 30 MMOL/L ESTIMATED GFR, NON AMER 100 ml/min/1.73sq.m ESTIMATED GFR, 121 ml/min/1.73sq.m GFR COMMENT Average GFR for 30-39 years old = 107. HEPATIC FUNCTION PANEL Result Value Ref Range Albumin 4.5 3.5 - 5.0 G/DL BILIRUBIN, TOTAL 0.5 0.2 - 1.3 MG/DL ALKALINE PHOSPHATASE 71 38 - 126 IU/L AST 27 14 - 36 IU/L BILIRUBIN, DIRECT 0.5 (H) 0 - 0.4 MG/DL PROTEIN, TOTAL 8.2 6.3 - 8.2 GM/DL ALT 24 <35 IU/L LIPASE Result Value Ref Range LIPASE 127 23 - 300 U/L HCG QUALITATIVE, URINE Result Value Ref Range HCG, QUALITATIVE, URINE NEGATIVE Radiographic Imaging CT ABDOMEN/PELVIS WITH CONTRAST Final Result IMPRESSION: 1. Status post cholecystectomy with slight compensatory dilatation of the intrahepatic bile ducts. 2. There is no acute intra-abdominal inflammatory process, bowel obstruction, or mass lesion. 3. There is no obstructive uropathy. XR CHEST 1 VIEW PORTABLE Final Result IMPRESSION: 1. No acute pulmonary disease. 2. No free air collections underneath the diaphragms. Procedures: Procedures Moderate Sedation Procedure: No ED Summary/MDM CT scan fails to demonstrate acute process. I believe endometrial pain versus ovarian cyst pain is the diagnosis. She was somewhat tachycardic from pain for a time, additional Dilaudid helped her. EKG showed normal sinus rhythm. She will return for fever worsening or weakening condition Clinical Impression: 1. Lower abdominal pain No follow-ups on file. New Prescriptions NALOXONE 4 MG/0.1ML 1 spray by Nasal route once for 1 dose. Benton into the nose as directed. Call 911. If no response in 2 minutes use a new nasal spray in other nostril. Repeat until help arrives. OXYCODONE-ACETAMINOPHEN 5-325 MG PER TABLET Take 1 tablet by mouth every 6 hours as needed for Moderate Pain for up to 7 days. Discontinued Medications OXYCODONE-ACETAMINOPHEN 5-325 MG PER TABLET TAKE 1 TABLET BY MOUTH EVERY 6 HOURS NEEDED FOR PAIN FOR UP TO 3 DAYS An After Visit Summary was printed and given to the patient with above information. . . Jennifer Moore MD 02/16/24 1655 documented in this encounter [facility] 02-16-2024 Hospital Discharg e instructions Jennifer Moore MD - 02/16/2024 4:52 PM EDT Tylenol for moderate pain. Full liquid diet for 2 days. The following attachments cannot be sent through Care Everywhere.Abdominal Pain (Honduran)documented in this encounter [facility] 02-16-2024 Emergency department Note Patient states that pain is getting worse again. Dr Moore notified. No new orders received at this time. States he is waiting for CT results. Patient updated on plan. [facility] 02-16-2024 Emergency department Note Pt taken to CT scan [facility] 02-16-2024 Physician Emergency department Note Emergency Department Report [facility] EM[facility] Service Date:.02/16/24 PCP: No primary care provider on file. Chief Complaint: Chief Complaint Patient presents with Abdominal Pain Patient states RLQ abdominal pain that started low mid abdomen with nausea since last night. Patient denies falls, trauma, and urinary symptoms. Patient states normal bowel movement yesterday and that she normally goes every other day. Patient states she was recently started on Augmentin for tooth infection. Patient states she took Ketorolac approximately 3 hours ago with no relief. [place] Livia Noyola is a 39 y.o. female presents to the ED today due to right lower quadrant abdominal pain. She does have a history of endometriosis and ovarian cyst but mostly these on the left, today it is on the right side. Nausea and vomiting is not present. Fever is not present. She has had cholecystectomy but not appendectomy. She still has both of her ovaries. Review of Systems: Review of Systems Constitutional symptoms: no Fatigue, no fever, no chills. Skin symptoms: Negative except as documented in HPI. ENMT symptoms: Negative except as documented in HPI. Respiratory symptoms: Negative except as documented in HPI. Cardiovascular symptoms: Negative except as documented in HPI. Gastrointestinal symptoms: Negative except for documented as above in the HPI, right lower quadrant abdominal pain Genitourinary symptoms: Negative except as documented in HPI. Musculoskeletal symptoms: Negative except as documented in HPI. Neurologic symptoms: Negative except as documented in HPI. Remainder of 10 systems, all negative except for mentioned above Past Medical History: Past Medical History: Diagnosis Date Anxiety Past Surgical History: No past surgical history on file. Allergies: Allergies Allergen Reactions Morphine Hives and Itching Other Reaction(s): Other, Other: See Comments, Unknown, Unknown Reaction Other Reaction(s): Other: See Comments Spasms Spasms Other Reaction(s): Other: See Comments Spasms Spasms Atenolol Other Reaction(s): Dr. Cantu/ Justin Octacosanol Phenothiazines Anxiety and Itching Other Reaction(s): Jittery Medications: Patient's Medications New Prescriptions NALOXONE 4 MG/0.1ML 1 spray by Nasal route once for 1 dose. Benton into the nose as directed. Call 911. If no response in 2 minutes use a new nasal spray in other nostril. Repeat until help arrives. OXYCODONE-ACETAMINOPHEN 5-325 MG PER TABLET Take 1 tablet by mouth every 6 hours as needed for Moderate Pain for up to 7 days. Previous Medications ALPRAZOLAM 0.25 MG TABLET Take 1 tablet by mouth. AMOXICILLIN-CLAVULANATE 875-125 MG TABLET Take by mouth. ATENOLOL 25 MG TABLET Take 1 tablet by mouth daily. CITALOPRAM 20 MG TABLET Take 1 tablet by mouth daily. CLINDAMYCIN 300 MG CAPSULE FLUCONAZOLE 150 MG TABLET TAKE 1 TABLET BY MOUTH ONCE HYDROCODONE-ACETAMINOPHEN 5-325 MG TABLET TAKE 1 TABLET BY MOUTH EVERY 6 HOURS FOR 3 DAYS KETOROLAC 10 MG TABLET Take 1 tablet by mouth Every 6 hours as needed. MULTIPLE VITAMINS-IRON (QC DAILY MULTIVITAMINS/IRON) TABLET Take 1 tablet by mouth daily. NABUMETONE 750 MG TABLET take 1 tablet by mouth every 12 hours as needed for pain ONDANSETRON 4 MG TAB DISPERSIBLE TABLET Place 1 tablet under tongue. TRAMADOL 50 MG TABLET TAKE 1 TABLET BY MOUTH EVERY 6 HOURS NEEDED FOR PAIN FOR UP TO 3 DAYS. TAKE LOWEST DOSE POSSIBLE Modified Medications No medications on file Discontinued Medications OXYCODONE-ACETAMINOPHEN 5-325 MG PER TABLET TAKE 1 TABLET BY MOUTH EVERY 6 HOURS NEEDED FOR PAIN FOR UP TO 3 DAYS Family History: No family history on file. Social History: Social History Socioeconomic History Marital status: Spouse name: Not on file Number of children: Not on file Years of education: Not on file Highest education level: Not on file Occupational History Not on file Tobacco Use Smoking status: Not on file Smokeless tobacco: Not on file Substance and Sexual Activity Alcohol use: Not on file Drug use: Not on file Sexual activity: Not on file Other Topics Concern Not on file Social History Narrative Not on file Social Determinants of Health Financial Resource Strain: Not on file Food Insecurity: No Food Insecurity (01/27/2024) Received from [facility] Hunger Screening Within the past 12 months we worried whether our food would run out before we got money to buy more.: Never True Within the past 12 months the food we bought just didn't last and we didn't have money to get more.: Never True Transportation Needs: Not on file Physical Activity: Not on file Stress: Not on file Social Connections: Unknown (03/22/2023) Received from [facility] Family and Community Support Help with Day-to-Day Activities: Not on file Lonely or Isolated: Not on file Intimate Partner Violence: Unknown (03/22/2023) Received from [facility] Abuse Screen Unsafe at Home or Work/School: Not on file Feels Threatened by Someone?: Not on file Does Anyone Keep You from Contacting Others or Doint Things Outside the Home?: Not on file Physical Sign of Abuse Present: Not on file Housing Stability: Unknown (03/22/2023) Received from [facility] Housing Stability Current Living Arrangements: Not on file Potentially Unsafe Housing Conditions: Not on file Physical Exam: Physical Exam CONST: -Well-developed well-nourished ; -In no acute distress. -Vitals reviewed. EYES: -EOM intact, KOLBY: -Sclera normal and conjunctiva: clear bilaterally. ENT: - Normal pharynx pink and moist. NECK: -Supple ([id number]-[id number]). CARD: -Rate and rhythm: Regular -Murmurs: No RESP: -Respiratory effort and chest excursion with respirations: Normal -Breath sounds equal bilaterally: Clear -Wheezes: No -Rales: No BACK: -Flank pain: No -Pain on palpation: No ABD: -Distended: No -Bruits: No -Bowel sounds: Normal. -Deep palpation: Tender right lower quadrant -Organomegaly palpable: No -Abnormal masses: No EXT: Gross appearance and use of all four extremities: Normal SKIN: -Good turgor warm and dry. -Apparent lesions or rashes: No NEURO: -Patient: alert -Oriented to: person, place and time. -Appearance and judgment: appropriate. -Cranial Nerves: Normal. -Speech: Normal Vital Signs During ED Visit Patient Vitals for the past 24 hrs: BP Temp Temp src Pulse Resp SpO2 02/16/24 1638 115/68 -- -- 98 18 96 % 02/16/24 1540 125/70 -- -- 110 20 100 % 02/16/24 1500 118/75 -- -- 84 -- 97 % 02/16/24 1428 124/86 -- -- 85 20 96 % 02/16/24 1328 (!) 133/105 98.3 F (36.8 C) Oral 103 18 100 % Orders/Results: Orders Placed This Encounter XR CHEST [address] ABDOMEN/PELVIS WITH CONTRAST CBC, EDIF, PLATELET PROTIME-INR CHEM 7 (LYTES,BUN,CREA,GLUC) HEPATIC FUNCTION PANEL LIPASE ECG Sodium chloride 0.9% IV solution 500 mL HYDROmorphone (DILAUDID) injection 1 mg Ondansetron 4mg/2ml (ZOFRAN) injection 4 mg iohexol (OMNIPAQUE) 350 MG/ML injection 75 mL Sodium chloride 0.9% IV solution 75 mL HYDROmorphone (DILAUDID) injection 0.5 mg oxyCODONE-acetaminophen 5-325 MG per tablet naloxone 4 MG/0.1ML HCG QUALITATIVE, URINE Results for orders placed or performed during the hospital encounter of 02/16/24 CBC, EDIF, PLATELET Result Value Ref Range WBC (WHITE BLOOD COUNT) 5.1 3.6 - 11.0 10*3/uL RBC 4.81 4.0 - 5.4 10*6/uL HEMOGLOBIN (HGB) 10.9 (L) 12.0 - 16.0 G/DL HEMATOCRIT (HCT) 35.2 (L) 36.0 - 48.0 % MEAN CELL VOLUME 73.0 (L) 80.0 - 100.0 FL Mean Cell HGB 22.6 (L) 26.0 - 35.0 PG MEAN CELL HGB CONCENTRATION 30.9 27.0 - 37.0 G/DL RBC DISTRIBUTION 17.0 (H) 11.5 - 14.5 % PLATELET COUNT 529 (H) 130 - 400 10*3/uL MEAN PLATELET VOLUME 7.3 (L) 7.4 - 11.0 FL DIFFERENTIAL TYPE AUTO DIFF % NEUTROPHILS 52.2 37.0 - 75.0 % LYMPHOCYTE 40.3 20.0 - 55.0 % MONOCYTE % 5.6 0.0 - 10.0 % EOSINOPHIL % 0.5 0.0 - 11.0 % BASOPHIL % 1.4 0.0 - 2.0 % Absolute Neutrophil Count 2.7 1.4 - 6.5 10*3/uL LYMPHOCYTES, ABSOLUTE 2.1 1.2 - 3.4 10*3/uL MONOCYTES, ABSOLUTE 0.3 0.0 - 0.7 10*3/uL ABSOLUTE EOSINOPHIL COUNT 0.0 0.0 - 0.7 10*3/uL ABSOLUTE BASOPHIL COUNT 0.1 0.0 - 0.2 10*3/uL PROTIME-INR Result Value Ref Range PT 12.2 11.8 - 14.4 SEC INR 0.89 0.88 - 1.14 CHEM 7 (LYTES,BUN,CREA,GLUC) Result Value Ref Range Glucose 106 (H) 70 - 100 MG/DL BUN 8 7 - 20 MG/DL CREATININE SERUM 0.70 0.7 - 1.2 MG/DL SODIUM 139 137 - 145 MMOL/L POTASSIUM 3.8 3.5 - 5.1 MMOL/L CHLORIDE 109 (H) 98 - 107 MMOL/L CARBON DIOXIDE (CO2) 22 22 - 30 MMOL/L ESTIMATED GFR, NON AMER 100 ml/min/1.73sq.m ESTIMATED GFR, 121 ml/min/1.73sq.m GFR COMMENT Average GFR for 30-39 years old = 107. HEPATIC FUNCTION PANEL Result Value Ref Range Albumin 4.5 3.5 - 5.0 G/DL BILIRUBIN, TOTAL 0.5 0.2 - 1.3 MG/DL ALKALINE PHOSPHATASE 71 38 - 126 IU/L AST 27 14 - 36 IU/L BILIRUBIN, DIRECT 0.5 (H) 0 - 0.4 MG/DL PROTEIN, TOTAL 8.2 6.3 - 8.2 GM/DL ALT 24 <35 IU/L LIPASE Result Value Ref Range LIPASE 127 23 - 300 U/L HCG QUALITATIVE, URINE Result Value Ref Range HCG, QUALITATIVE, URINE NEGATIVE Radiographic Imaging CT ABDOMEN/PELVIS WITH CONTRAST Final Result IMPRESSION: 1. Status post cholecystectomy with slight compensatory dilatation of the intrahepatic bile ducts. 2. There is no acute intra-abdominal inflammatory process, bowel obstruction, or mass lesion. 3. There is no obstructive uropathy. XR CHEST 1 VIEW PORTABLE Final Result IMPRESSION: 1. No acute pulmonary disease. 2. No free air collections underneath the diaphragms. Procedures: Procedures Moderate Sedation Procedure: No ED Summary/MDM CT scan fails to demonstrate acute process. I believe endometrial pain versus ovarian cyst pain is the diagnosis. She was somewhat tachycardic from pain for a time, additional Dilaudid helped her. EKG showed normal sinus rhythm. She will return for fever worsening or weakening condition Clinical Impression: 1. Lower abdominal pain No follow-ups on file. New Prescriptions NALOXONE 4 MG/0.1ML 1 spray by Nasal route once for 1 dose. Benton into the nose as directed. Call 911. If no response in 2 minutes use a new nasal spray in other nostril. Repeat until help arrives. OXYCODONE-ACETAMINOPHEN 5-325 MG PER TABLET Take 1 tablet by mouth every 6 hours as needed for Moderate Pain for up to 7 days. Discontinued Medications OXYCODONE-ACETAMINOPHEN 5-325 MG PER TABLET TAKE 1 TABLET BY MOUTH EVERY 6 HOURS NEEDED FOR PAIN FOR UP TO 3 DAYS An After Visit Summary was printed and given to the patient with above information. . . Jennifer Moore MD 02/16/24 6717 [facility] 02-13-2024 Evaluation + Plan note Extrac flo from: Title:ED Note Author:Ritesh Heath DO. Date :02/13/24 Pain, dental (K08.89: Other specified disorders of teeth and supporting structures) Orders: amoxicillin-clavulanate, 1 tab(s), Oral, q12hr for 7 day(s), 14 tab(s), Refill(s) 0, [facility]/pharmacy #[id number], 165.1, cm, 02/13/24 0:28:00 EDT, Height/Length Dosing, 87.3, kg, 02/13/24 0:28:00 EDT, Weight Dosing benzocaine topical, 1 luis, Gel, Topical, QID for 30 day(s), Stop date 03/14/24 0:42:00 EDT, STAT, Start date 02/13/24 0:43:00 EDT lidocaine topical, 200 mg, 10 mL, Soln-Oral, Oral, Once, Stop date 02/13/24 0:43:00 EDT, STAT, Start date 02/13/24 0:43:00 EDT [facility] 09-02-2024 Hospital Discharge instructions Patient Education 02/13/2024 01:00:20 Dental Pain Dental Pain Dental pain is often a sign that something is wrong with your teeth or gums. It is also something that can occur following dental treatment. If you have dental pain, it is important to contact your dental care provider, especially if the cause of the pain has not been determined. Dental pain may beof varying intensity and can be caused by many things, including: Tooth decay (cavities or caries). Cavities are caused by bacteria that produce acids that irritate the nerve of your tooth, making it sensitive to air and hot or cold temperatures. This eventually causes discomfort or pain. Abscess or infection. Once the bacteria reach the inner part of the tooth (pulp), a bacterial infection (dental abscess) can occur. Pus typically collects at the end of the root of a tooth. Injury. A crack in the tooth. Gum recession exposing the root, and possibly the nerves, of a tooth. Gum (periodontal)disease. Abnormal grinding or clenching. Poor or improper home care. An unknown reason (idiopathic). Your pain may be mild or severe. It may occur when you are: Chewing. Exposed to hot or cold temperatures. Eating or drinking sugary foods or beverages, such as soda or candy. Your pain may be constant, or it may come and go without cause. Follow these instructions at home: The following actions may help to lessen any discomfort that you are feeling before or after getting dental care. Medicines Take cepb-cyt-znjfooj and prescription medicines only as told by your dental care provider. If you were prescribed an antibiotic medicine, take it as told by your dental care provider. Do notstop taking the antibiotic even if you start to feel better. Eating and drinking Avoid foods or drinks that cause you pain, such as: Very hot or very cold foods or drinks. Sweet or sugary foods or drinks. Managing pain and swelling Ice can sometimes be used to reduce pain and swelling, especially if the pain is following dental treatment. If directed, put ice on the painful area of your face. To do this: ?Put ice in a plastic bag. ?Place a towel between your skin and the bag. ?Leave the ice on for 20 minutes, 2 3 times a day. ?Remove the ice if your skin turns bright red. This is very important. If you cannot feel pain, heat, or cold, you have a greater risk of damage to the area. Brushing your teeth To keep your mouth and gums healthy, brush your teeth twice a day using a fluoride toothpaste. Use a toothpaste made for sensitive teeth as directed by your dental care provider, especially if the root is exposed. Always brush your teeth with a soft-bristled toothbrush. This will help prevent irritation to your gums. General instructions Floss at least once a day. Do not apply heat to the outside of the face. Gargle with a mixture of salt and water 3 4 times a day or as needed. To make salt water, completely dissolve 1 tsp (3 6 g) of salt in 1 cup (237 mL) of warm water. Keep all follow-up visits. This is important. Contact a dental care provider if: You have any unexplained dental pain. Your pain is not controlled with medicines. Your symptoms get worse. You have new symptoms. Get help right away if: You are unable to open your mouth. You are having trouble breathing or swallowing. You have a fever. You notice that your face, neck, or jaw is swollen. These symptoms may represent a serious problem that is an emergency. Do not wait to see if the symptoms will go away. Get medical help right away. Call your local emergency services (911 in the [place] Do not drive yourself to the hospital. Summary Dental pain may be caused by many things, including tooth decay and infection. Your pain may be mild or severe. Take boym-iho-rkvuxxp and prescription medicines only as told by your dental care provider. Watch your dental pain for any changes. Let your dental care provider know if your symptoms get worse. This information is not intended to replace advice given to you by your health care provider. Make sure you discuss any questions you have with your health care provider. Document Revised: 03/04/2021 Document Reviewed: 03/04/2021 [employer] Patient Education 2023 [employer]. Follow Up Care 02/13/2024 00:22:40 With:Dental: [facility] [phone] Address:Unknown When:02/16/2024 With:Dental: [place] [facility] [phone] Address:Unknown When:02/16/2024 With:Dental: [facility] [phone] Address:Unknown When:02/16/2024 [facility] 09-02-2024 NoteED Patient Education Note Dentistry Dental Pain Dental pain is often a sign that something is wrong with your teeth or gums. It is also something that can occur following dental treatment. If you have dental pain, it is important to contact your dental care provider, especially if the cause of the pain has not been determined. Dental pain may beof varying intensity and can be caused by [...] after getting dental care. Medicines ? Take snya-wfn-kgsxfav and prescription medicines only as told by [...] swelling, especially if the pain is following dentaltreatment. ? If directed, put ice on the [...] directed by your dental care provider, especially ifthe root is exposed. ? Always brush your [...] may be mild or severe. ? Take wada-jri-ybvwfsr and prescription medicines only as told by [...] provider. Document Revised: 03/04/2021 Document Reviewed: 03/04/2021 [employer] Patient Education ? 2023 [employer].[facility] 01-22-2024 Hospital Discharge instructions* Discharge Instructions* Eren Camejo DO - 01/22/2024 12:25 PM EDT Use Ultram as needed for pain. Call Dr. Braden for follow-up appointment for reevaluation of symptoms and further pain control if needed. Return to the ER for worsening pain or if you develop any vaginal bleeding or vaginal discharge or fevers or chills or intractable nausea or vomiting. * Attachments The following attachments cannot be sent through Care Everywhere. * Ovarian Cyst: [facility] (Honduran) [facility]* Author Jennifer Duran [facility] Authored January 19, 2024 11: 44am The above note written by __ _Polly Collado____ acting as human recorder, note dictated by Dr. Mcfadden .I performed the above HPI, ROS, and Examination. I formulated and dictated the treatment plan and was present for entire encounter. Jennifer Duran D.O. [facility] Work Phone: 1(356) 242-879905-28-2024 Hospital Discharge instructions* Discharge Instructions* Eren Camejo DO - 11/08/2023 12:01 PM EDT Use clindamycin as prescribed. Continue the pain medicine that you have at home as needed for pain.Follow-up with dentist as scheduled * Attachments The following attachments cannot be sent through Care Everywhere. * Tooth and Gum Pain (Honduran) [facility]* Author Jennifer Duran [facility] Authored October 18, 2023 3:45pm The above note written by __ _Polly Collado____ acting as human recorder, note dictated by Dr. Mcfadden .I performed the above HPI, ROS, and Examination. I formulated and dictated the treatment plan and was present for entire encounter. Jennifer Duran D.O. [facility] Work Phone: 1(640) 650-766604-19-2024 Evaluation + Plan noteExtracted from: Title:ED Note Author:Ritesh Heath DO Date [...] Diagnostic Tests Pending * Urine Culture 09/30/23 [facility]04-19-2024 Hospital Discharge instructions Patient Education 09/30/2023 [...] (oophorectomy). Follow these instructions at home: Take gfoq-tyv-fvydqqn and prescription medicines only as told by [...] provider. Document Revised: 11/06/2020 Document Reviewed: 11/06/2020 [employer] Patient Education 2022 [employer]. Follow Up Care 09/29/2023 23:40:10 With:Ino Royal Address: [address] [place] [address]- Business (1) When:10/03/2023 [facility]04-15-2024 Hospital Discharge instructions Follow Up Care 09/26/2023 13:55:08 With:[facility] Address: [address] [place] [address]- Business (1) When:09/29/2023 17:49:12 With:Tarun BRADEN Address: [address] , [place] [address]- Business (1) When:09/29/2023 17:49:03 With:XXXX NONE Address: [place] When:Within 3 Day(s) [facility]04-15-2024 Evaluation + Plan noteExtracted from: Title:ED Note Author:Fredrick GRULLON [employer] Date:09/26/23 Abdominal pain (R10.9: Unspe cified abdominal [...] q12hr, # 20 tab(s), Refills(s) 0, [id number], 165, cm, 09/26/23 14:18:00 EDT, Height/Length Dosing, 81.2, kg, 09/26/23 14:18:00 EDT, Weight Dosing hyoscyamine, 0.125 mg = 1 tab(s), Oral, QID, X 5 day(s), # 20 tab(s), Refills(s) 0, [id number], 165, cm, 09/26/23 14:18:00 EDT, Height/Length Dosing, 81.2, kg, 09/26/23 14:18:00 EDT, Weight Dosing ketorolac, 30 mg = 1 mL, Injection, IV, Once, Stop date 09/26/23 15:40:00 EDT, STAT, Start date 09/26/23 15:40:00 EDT, 09/26/23 15:40:00 EDT polyethylene glycol 3350, 17 gm, Oral, Daily, X 7 day(s), # 119 gm, Refills(s) 0, [id number], 165, cm, 09/26/23 14:18:00 EDT, Height/Length Dosing, 81.2, kg, 09/26/23 14:18:00 EDT, Weight Dosing Beta hCG Qual CBC w/ Auto Diff Comprehensive Metabolic Panel CT Abdomen/Pelvis w/ Contrast Drug Screen Urine eGFR Extra Blue Tube Extra SST Tube Lipase Level UA with Cult Rflx US Pelvis Non-OB Complete US Transvaginal Non-OB [facility]02-18-2024 Hospital Discharge instructions Patient Education 07/31/2023 [...] Follow these instructions at home: Medicines Take xnud-nvk-jfzvbez and prescription medicines only as told by [...] Watch your condition for any changes. Take zlmv-ujm-tydmjda and prescription medicines only as told by [...] provider. Document Revised: 07/18/2020 Document Reviewed: 10/08/2019 [employer] Patient Education 2022 [employer] Follow Up Care 07/31/2023 15:34:13 With:Follow-up with your REGISTERED SALES ASSISTANT at [facility] Address:Unknown When:08/03/2023 17:52:19 Comments:Call the office [...] weakness, or any new or worsening symptoms. [facility]02-15-2024 Evaluation note* Author Jennifer Duran [facility] Authored July 28, 2023 1:18pm The above note written by __ _Polly Collado____ acting as human recorder, note dictated by Dr. Mcfadden .I performed the above HPI, ROS, and Examination. I formulated and dictated the treatment plan and was present for entire encounter. Jennifer Duran D.O. [facility] Work Phone: 1(799) 197-957502-06-2024 Evaluation note* Encounter Date Diagnosis Assessment Notes Treatment Notes Treatment Clinical Notes Jul, Anxiety (ICD-10 - F41.9) [facility] Other 02-06-2024 Evaluation note* Encounter Date Diagnosis [...] with her specialist through the [facility] and is scheduled at the end of this month (July) and is hoping to have a total hysterectomy. [facility] Other 12-26-2023 Evaluation note* Encounter Date Diagnosis Assessment Notes Treatment Notes Treatment Clinical Notes May, Cough (ICD-10 - R05.9) [facility] Other 12-04-2023 Evaluation note* Encounter Date Diagnosis Assessment Notes Treatment Notes Treatment Clinical Notes May, Anxiety (ICD-10 - F41.9) [facility] Other 11-12-2023 Hospital Discharge instructions Patient Education [...] Follow these instructions at home: Medicines Take fhnk-gtr-lxifzjv and prescription medicines only as told by [...] Watch your condition for any changes. Take dnip-qgd-hhndqts and prescription medicines only as told by [...] provider. Document Revised: 07/18/2020 Document Reviewed: 10/08/2019 [employer] Patient Education 2022 [employer]. Follow Up Care 04/24/2023 13:13:55 With:YOUR OBGYN at [facility] Address:Unknown When:04/27/2023 15:50:22 Comments:Seek immediate [...] develop any new or worsening symptoms. 3. [facility]11-12-2023 Evaluation + Plan noteExtracted from: Title:ED [...] Saline Lock Insert UA With Cult Reflex [facility]11-06-2023 Evaluation note* Encounter Date Diagnosis Assessment [...] with her specialist at the [facility] in June (2023) which was the soonest they could get her in. She is hoping that they will at least remove the ovary but she is willing to have a total hysterectomy if they will do it. 1:13 PM - 1:20 PM [employer] [facility] [employer] Other 10-20-2023 Evaluation note* Encounter Date Diagnosis Assessment Notes Treatment Notes Treatment Clinical Notes Mar, Anxiety (ICD-10 - F41.9) [facility] Other 10-17-2023 Progress note Author Christi Aquino [facility] March 29, 2023 4:11pm Note Date/Time March 29, 2023 1 1:35am [facility] [address] [place] [address] Progress Note Signed with Addenda Patient: Livia Noyola MR#: [id number] : 1985 Acct:[id number] Age/Sex: 38 / F Adm Date: 3 Loc: Room: [address] [place] [address] Type: ADM IN Attending Dr: Christi Aquino MD Copies to: ~ ADDENDUM1 Upon re-evaluation in the afternoon, patient feels better and would like to go home. Prescribed pain medications as needed as directed. Advised to continue to follow up with [facility] staff detacker. 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 detacker eval requested for further evaluation. Patient has complex detacker hx and been followed at [facility]. Afebrile here, no leukocytosis or obvious evidence of infectious process. Placed on Pain meds regimen IV and PO. Ongoing monitoringfor now. Documented By: Christi Aquino MD 03/29/23 11 32 Signed By: <Electronically signed by Christi Aquino MD> 03/29/23 7[address] [facility] Work Phone: 1(993) 754-129110-17-2023 History and physical note Author Megan Muniz [facility] March 29, 2023 7:29am Note Date/Time March 29, 2023 7 :29am [facility] [address] [place] [address] Hospitalist H&P Signed Patient: Livia Noyola MR#: [id number] : 1985 Acct:[id number] Age/Sex: 38 / F Adm Date: 3 Loc: Room: [address] [place] [address] Type: ADM IN Attending Dr: Christi Aquino [...] findings. The patient case was discussed with REGISTERED SALES ASSISTANT, who was not convinced that left ovarian [...] Previous records in the computer system reviewed [facility] Medical History Anemia Endometriosis Surgical History History of cholecystectomy History of removal of ovarian cyst Family History (Updated 03/29/23 @ 06:45 by Simin Lugo, RN) Father Heart disease Grandparent Breast CA [...] % (Auto) 42.8 % (.) 03/29/23 01:40 [place] % (Auto) 7.3 % (.) 03/29/23 01:40 Eos % (Auto) 1.8 % (.) 03/29/23 01:40 Baso % (Auto) 1.3 % (.) 03/29/23 01:40 Nucleat RBC Rel Count 0.1 /100 WBC (0-0.5) 03/29/23 01:40 Neut # (Auto) 3.5 x10E3/uL (1.8-7.7) 03/29/23 01:40 Lymph # (Auto) 3.2 x10E3/uL (1.00-4.8) 03/29/23 01:40 [place] # (Auto) 0.6 x10E3/uL (0.0-0.8) 03/29/23 01:40 [...] pH 7.5 (5.0-9.0) 03/29/23 02:53 Ur Specific Mcbrides 1.003 (1.001-1.030) 03/29/23 02:53 Urine Protein Negative [...] she does have tachycardia We will consult REGISTERED SALES ASSISTANT Check lactic acid 2. Microcytic iron deficiency [...] signed by Megan Muniz MD> 03/29/23 0729 [facility] Work Phone: 1(678) 966-371208-02-2023 Evaluation note* Encounter Date Diagnosis Assessment Notes [...] relief. She would need to see an net application support specialist for this. She is agreeable [...] an appointment to see Dr. Castillo again. [facility] Other 06-29-2023 Evaluation note* Encounter Date Diagnosis Assessment Notes Treatment Notes Treatment Clinical Notes Nov, Acute sinusitis (ICD-10 - J01.90) Nov, Cough (ICD-10 - R05.9) [facility] Other 05-01-2023 Evaluation note* Encounter Date Diagnosis [...] no discrepancies noted. Rx was called into [facility], spoke with Chad TOWNSEND, the Xanax 0.25 MG tablets are out of stock currently so her dose was increased to 0.5 MG and she was instructed to take 1/2 tablet q8-12 hours as needed. Only 12 tablets were called in. Pt voiced understanding when notified of this change. October, Other 3:17 PM - 3:23 PM [facility] Other 04-12-2023 Evaluation note* Encounter Date Diagnosis [...] Sep, Other 12:46 PM - 12:51 PM [facility] Other 01-30-2023 Evaluation note* Encounter Date Diagnosis Assessment Notes Treatment Notes Treatment Clinical Notes Jun, Anxiety (ICD-10 - F41.9) [facility] Other 01-30-2023 Evaluation note* Encounter Date Diagnosis [...] Side effects/risks/benefi ts of medication were reviewed. [facility] Other 12-21-2022 Evaluation note* Encounter Date Diagnosis [...] May, Other 3:27 PM - 3:32 PM [facility] Other 11-18-2022 Miscellaneous Notes* Telephone Encounter - Tabby Steele Ma - 04/30/2022 2:25 PM EST CMP if needed. Tabby Steele Ma documented in this encounter[facility] note* Encounter Date Diagnosis Assessment Notes Treatment Notes Treatment Clinical Notes Mar, Anxiety (ICD-10 - F41.9) [facility] Other 10-31-2022 Evaluation note* Encounter Date Diagnosis [...] done and then return to see her REGISTERED SALES ASSISTANT at the [facility] because she feel she has another ovarian cyst. [facility] Other 10-28-2022 Miscellaneous Notes* Allied Health - [...] PAGER/CONTACT #: documented in this encounterUniversity Hospitals St. [facility]10-03-2022 Miscellaneous Notes* Telephone Encounter - MARY Narvaez - 03/15/2022 12:04 PM EDT Patient appears on the First Time Treatment List for a non-oncology treatment. No psychosocial assessment is indicated. MARINA Narvaez-Debbie documented in this encounterUniversity Hospitals St. [facility]09-28-2022 NoteHNO ID: [id number] Author: Gil Ni APRN.ASSOCIATE WEB DEVELOPER Service: ? 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 Recent laboratories from [facility] October 04, 2020 show hemoglobin of 11.6 [...] and removal ovarian cyst (more content not included)...[facility]09-28-2022 History of Present illness Narrative* Gil Ni APRN.ASSOCIATE WEB DEVELOPER - 03/10/2022 2:00 PM EDT Images from the original note were not included. 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 Recent laboratories from [facility] October 04, 2020 show hemoglobin of11.6 but [...] Hyperlipidemia Father Heart Father bypass surgery, stents, PA Gil Ni APRN.CNP [place], [place] CC: Dr. Jennifer Duran [address] [place] [id number] I spent a total of 30 minutes on the date of the service which included preparing to see the patient, kese-ju-wmmt patient care, completing clinical documentation, obtaining and/or reviewing separately obtained history, performing a medically appropriate examination, counseling and educating the pat ient/family/caregiver, ordering medications, tests, or procedures, independently interpreting results (not separately reported), and communicating results to the patient/family/caregiver. documented in this encounterUniversity Hospitals St. [facility]09-08-2022 Miscellaneous Notes* Telephone Encounter - Meaghan Ordonez - 02/18/2022 3:14 PM EDT Patient has an appt on 02/23. Would you like labs? documented in this encounterUniversity Hospitals St. [facility]09-06-2022 Evaluation note* Encounter Date Diagnosis Assessment Notes Treatment Notes Treatment Clinical Notes Feb, Iron deficiency anemia (ICD-10 - D50.9) Feb, Elevated liver enzymes (ICD-10 - R74.8) [facility] [employer] Other 07-28-2022 Evaluation note* Encounter Date Diagnosis Assessment Notes Treatment Notes Treatment Clinical Notes Dec, Anxiety (ICD-10 - F41.9) [facility] [employer] Other 06-24-2022 Hospital Discharge instructions Patient Education [...] develop this condition: Playing sports that include rtcq-ay-tvbc contact with others. Having a skin condition [...] Follow these instructions at home: Medicines Take krda-icd-lgwmhrm and prescription medicines only as told by [...] 06/20/2015 Document Revised: 07/10/2019 Document Reviewed: 06/21/2017 [employer] Patient Education 2020 [employer]. 12/04/2021 13:59:11 Sinusitis, Adult Sinusitis, Adult Sinusitis [...] at home: Medicines Take, use, or apply hspb-avy-djmbbci and prescription medicines only as told by [...] and water are not available, use hand litigator. Do not smoke. Avoid being around people [...] 05/30/2006 Document Revised: 10/30/2018 Document Reviewed: 10/30/2018 [employer] Patient Education 2020 [employer]. 12/04/2021 13:59:10 BMI for Adults BMI for [...] height. This can be done either in [place] ([place] or metric measurements. Note that charts are available to help you find your BMI quickly and easily without having to do these calculations yourself. To calculate your BMI in [place]uran ([place] measurements, your health care provider will: [...] medical problems. BMI can be measured using Honduran measurements or metric measurements. To interpret your [...] 02/08/2005 Document Revised: 05/12/2018 Document Reviewed: 04/12/2018 [employer] Patient Education [address] [employer] [facility] 05-06-2022 Evaluation note* Encounter [...] October, Other 8:28 AM - 8:35 AM [facility] Other 03-01-2022 Evaluation note* Encounter Date Diagnosis Assessment Notes Treatment Notes Treatment Clinical Notes Aug, Cough (ICD-10 - R05) [facility] Other 02-21-2022 Evaluation note* Encounter Date Diagnosis [...] Jul, Other 5:43 PM - 5:48 PM [facility] Other 12-06-2021 Evaluation note* Encounter Date Diagnosis [...] voices that her employer will handle her [facility] [employer] paperwork. If she needs a note she [...] May, Other 4:25 PM - 4:38 PM [facility] Other 11-09-2021 Evaluation note* Encounter Date Diagnosis [...] R63.5) Her TSH is normal at 1.04. [facility] Other 10-07-2019 History general Narrative - Reported* Type Description Date Medical History endometriosis 2012 Medical History Echocardiogram [facility] Normal, ejection fraction 60-65% Medical History MRI Brain 03-21-19 [facility] [place], Normal Medical History anxiety Medical History pneumonia 06/2019 Surgical History Cholecystectomy Surgical History gal bladder removed 2008 Surgical History ablation - endometri osis removed off ovaries Dr Lentz 2012 Surgical History ovarian torsion 2014 Surgical History MRI pelvis 2017 Surgical History ovarian cyst removed 06/2018 Hospitalization History see above [facility] Other Consult note Author Geraldo Hatfield [facility] April 28, 2022 8:22am Note Date/Time April 28, 2022 8:22am [facility] [address] [place] [address] REGISTERED SALES ASSISTANT Consult Note Signed Patient: Livia Noyola MR#: [id number] : 1985 Acct:[id number] Age/Sex: 37 / F Adm Date: 2 Loc: Room: [address] [place] [address] Type: ADM INOo Attending Dr: Kiko Saenz [...] Last Admin: 04/28/22 04:43 Dose: 10 ml DIALER - Exam Physical Exam Vital signs: Temp 97.7 F 04/28/22 04:18 Pulse 95 H 04/28/22 04:18 Resp 16 04/28/22 04:18 BP 136/95 04/28/22 04:18 Pulse Ox 100 04/28/22 04:18 O2 Del Method Room Air 04/28/22 04:18 Constitutional Constitutional: no acute distress Routine Respiratory Exam Respiratory: Absent respiratory distress Routine Abdominal Exam Abdominal: Present soft, normoactive bowel sounds and tenderness; Absent reboundor guarding DIALER - Results Laboratory Results - Last 48 hrs. 04/28/22 02:00: Urine Color Yellow, Urine Appearance Cloudy A, Urine pH 6.5, Ur Specific Mcbrides 1.005, Urine Protein Negative, Urine Glucose (UA) [...] Creatinine Clear 132.36, Sodium 137, Potassium 3.7, [id number], Carbon Dioxide 21.1 L, Anion Gap 14.6, [...] % (Auto) 64.6, Lymph % (Auto) 28.9, [place] % (Auto) 4.5, Eos % (Auto) 1.0, Baso % (Auto) 1.0, Neut # (Auto) 5.1, Lymph # (Auto) 2.3, [place] # (Auto) 0.4, Eos # (Auto) 0.1, Baso # (Auto) 0.1, Nucleated RBC % (auto) 0.0, Platelet Estimate Normal, Plt Morphology Comment Normal, RBC Morphology N/A, Polychromasia Slight, Hypochromasia Slight, Poikilocytosis Moderate, Anisocytosis Marked, Tear Drop Cells Slight, Ovalocytes Moderate DIALER - A/P (1) Intractable abdominal pain: Code(s): [...] And I suggested she follow-up with her rib knitter at the [facility]. Code(s): N83.202 - Unspecified ovarian cyst, left side Status: Acute Documented By: GERALDO HATFIELD MD 04/28/22816 Signed By: <Electronically signed by MD GERALDO HATFIELD> 04/28/22821 [facility] Work Phone: Evaluation + Plan note No data available for this section [facility] Evaluation noteNo assessment information available [facility] Work Phone: Evaluation noteNo InformationNort eCollect Other Evaluation note* Diagnosis Iron deficiency anemia due to chronic blood loss- Primary Iron deficiency anemia secondary to blood loss (chronic) documented in this encounter 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* Diagnosis Iron deficiency anemia due to chronic blood loss- Primary Iron deficiency anemia secondary to blood loss (chronic) documented in this encounter [facility]* Diagnosis Onset Date Resolution Status Abdominal pain acute Ovarian cyst acute [facility] Work Phone: Evaluation note* Diagnosis Onset Date Resolution Status Abdominal pain acute Endometriosis acute Ovarian cyst [facility] Work Phone: evaluation note* Author Jennifer Duran [facility] Authored July 28, 2023 12:18pm The above note written by __ _Polly Collado____ acting as human recorder, note dictated by Dr. Mcfadden .I performed the above HPI, ROS, and Examination. I formulated and dictated the treatment plan and was present for entire encounter. Jennifer Duran D.O. [facility] Work Phone: evaluation note* Diagnosis Toothache- Primary Unspecified disorder of the teeth and supporting structures documented in this encounter [facility] note* Diagnosis Onset Date Resolution Status Anxiety acute Tachycardia [facility] Work Phone: Evaluation note* Diagnosis Cyst of left ovary- Primary Other and unspecified ovarian cyst documented in this encounter [facility] note* Diagnosis Lower abdominal pain Abdominal pain, other specified site [facility] encounter [facility]* Diagnosis Pelvic pain- Primary Unspecified symptom associated with female genital organs documented in this encounter [facility]* Diagnosis RLQ abdominal pain- Primary Abdominal pain, right lower quadrant Pelvic joint pain, right documented in this encounter [facility]* Diagnosis Endometriosis- Primary Endometriosis, site unspecified Preop testing Unspecified pre-operative examination documented [facility] this [facility]* Diagnosis Endometriosis- Primary Endometriosis, site unspecified Preop testing Unspecified pre-operative examination documented in this encounter [facility] Additional Instructions Please arrange a follow-up appointment with your [facility] rib knitter.[facility] Work Phone: Hospital Discharge instructions Additional Instructions Take Motrin and Tylenol as needed for mild to moderate pain. Take oxycodone as prescribed for severe pain. Follow-up with Dr. Ness or Dr. Grayson in the office regarding further treatment with a GnRH antagonistOur [facility] Work Phone: Hospital Discharge instructions Additional Instructions Take Cypress as needed for severe pain, do not drink, drive, operate heavy machinery while taking Continue clindamycin as previously ordered by her dentist Return to emergency room for fever or chills, or dental abscess Follow-up with dentist and oral surgeon as scheduledOur [facility] Of [facility] Work Phone: Hospital Discharge instructionsAmbulatory Orders* Referral to Allergy/Immunology Time Frame: 12/07/23, Location: None Selected [facility] Work Phone: Hospital Discharge instructions* Attachments The following attachments cannot be sent through Care Everywhere. * Pelvic Pain (Honduran) documented in [facility] encounter[facility] SystemInstructionsNot on filedocumented in this encounterProSelect [facility] SystemInstructionsNot on filedocumented in this encounterProSelect [facility] SystemProgress note No data available for this section [facility] Reason for referral (narrative)* Consultation (Routine) - New Request Specialty Diagnoses / Procedures Referred By Gina perez Referred To Contact Multispecialty Diagnoses RLQ abdominal pain Pelvic joint pain, right Davi Marie DO [address] [place] [address] Referral ID Status Reason Start Date Expiration Date V isits Requested Visits Authorized [id number] New Request 03/03/2024 03/28/2025 1 1 * Consultation (Routine) - New Request Specialty Diagnoses / Procedures Referred By Contabram t Referred To Contact REGISTERED SALES ASSISTANT Diagnoses RLQ abdominal pain Pelvic joint pain, right Davi Marie DO [address] [place] [address] Isabell Hodges DO [address] [place] [address] Referral ID Status Reason Start Date Expiration Date V isits Requested Visits Authorized [id number] New Request 03/03/2024 03/28/2025 1 1 [facility] Summary Purpose Family History No Family History [...] med refill Reason for Visit Anxiety Tachycardia Chief Complaint med refill discuss sleep Reason for Visit Anxiety Tachycardia Anxiety Endometriosis Insomnia Tachycardia Weight gain Reason for Referral Specialty Diagnoses / Procedures Referred By Gina perez Referred To Contact Procedures ECG Jennifer Moore MD [address] [place] [address] Referral ID Status Reason Start Date Expiration Date V isits Requested Visits Authorized [id number] New Request 02/16/2024 03/12/2025 1 1 Reason appt pt is elsiearmando robi to see whomever can see her first pt needs consult to discuss possible injection for right sided bursitis Diagnosis 1 Greater trochanteric bursitis of right hip (M70.61) Referral Organization [facility] Luiz Erazo Referring Provider First Name Jennifer Referring Provider Last Name Roger Referring Provider Specialty Family Prac kasi Referred Organization [facility] Referred Provider Chad Luna II Referred Address [address] [facility] [place], [place],[address] Referred Provider Specialty Orthopedic S urgery Referral Priority Routine General Notes Angelita Trevino 01/12/2023 03:51:47 PM > referral sent p2p. pt understands that she will be contacted to schedule this appt. Reason appt consult for e zia and treatment of continued cough since covid infection Diagnosis 1 Cough (R05) Referral Organization [facility] Luiz Erazo Referring Provider First Name Jennifer Referring Provider Last Name Roger Referring Provider Specialty Family Prac kasi Referred Organization Unknown Facility Referred Provider Steve Donald Referred Provider Specialty Pulmonary Di seases Referral Priority Routine General Notes Angleita Trevino 08/11/2021 01:41:41 PM > referral faxed [...] section and content) DATE CREATED AUTHOR 08/08/2020 [facility] DATE CREATED AUTHOR AUTHOR'S ORGANIZ ATION 05/03/2022 [facility] DATE CREATED AUTHOR AUTHOR'S ORGANIZ ATION 10/19/2022 [facility] DATE CREATED AUTHOR AUTHOR'S ORGANIZ ATION 06/23/2023 [facility] DATE CREATED AUTHOR AUTHOR'S ORGANIZ ATION 09/06/2023 [facility] DATE CREATED AUTHOR AUTHOR'S ORGANIZ ATION 10/21/2023 [facility] DATE CREATED AUTHOR AUTHOR'S ORGANIZ ATION 11/27/2023 [facility] DATE CREATED AUTHOR AUTHOR'S ORGANIZ ATION 01/23/2024 [facility] DATE CREATED AUTHOR AUTHOR'S ORGANIZ ATION 02/16/2024 [facility] DATE CREATED AUTHOR AUTHOR'S ORGANIZ ATION 03/07/2024 [facility] DATE CREATED AUTHOR AUTHOR'S ORGANIZ ATION 03/30/2024 [facility] DATE CREATED AUTHOR AUTHOR'S ORGANIZ ATION 04/07/2024 [facility] DATE CREATED AUTHOR AUTHOR'S ORGANIZ ATION 04/07/2024 [facility] Care Teams (unrecognized sec tion and content) Team Status: Inactive Member Role Status Dates Jennifer Duran DO Primary Care Provider, Attending Pro vider Active Team Status: Active Member Role Status Dates Jennifer Duran DO Primary Care Provider Active Team Status: Inactive Member Role Status Dates Jennifer Duran DO Primary Care Provider Active Augustus Santiago , Attending Provider Active Team Status: Inactive Member Role Status Dates Jennifer Duran , Primary Care Provider Active Amaury Barlow , DO Emergency Provider Active Web Weaver Relationship Specialty Start Date End Date Jennifer Duran, DO [address] [place] [address] PCP - General 11/27/07 Jennifer Duran, DO [address] [place] [address] Referring Family Practice 04/03/19 Avinash Velásquez MD [address] [place] [id number] Referring REGISTERED SALES ASSISTANT 11/30/21 Web Weaver Relationship Specialty Start Date End Date Jennifer Duran, DO [address] [place] [address] PCP - General 11/27/07 Jennifer Duran, DO [address] [place] [address] Referring Family Medicine 04/03/19 Avinash Velásquez MD [address] [place] [phone] Referring REGISTERED SALES ASSISTANT 11/30/21 Web Weaver Relationship Specialty Start Date End Date Jennifer Duran, DO [address] [place] [address] PCP - General 11/27/07 Jennifer Duran, DO [address] [place] [address] Referring Family Medicine 04/03/19 Avinash Velásquez MD [address] [place] [address] Referring REGISTERED SALES ASSISTANT 11/30/21 Web Weaver Relationship Specialty Start Date End Date Jennifer Duran, DO [address] [place] [address] PCP - General 11/27/07 Jennifer Duran, DO [address] [place] [address] Referring Family Medicine 04/03/19 Avinash Velásquez MD [address] [place] [address] Referring REGISTERED SALES ASSISTANT 11/30/21 Web Weaver Relationship Specialty Start Date End Date Jennifer Duran, DO [address] [place] [address] PCP - General 11/27/07 Jennifer Duran, DO [address] [place] [address] Referring Family Medicine 04/03/19 Avinash Velásquez MD [address] [place] [address] Referring REGISTERED SALES ASSISTANT 11/30/21 Web Weaver Relationship Specialty Start Date End Date Jennifer Duran, DO [address] [place] [address] PCP - General 11/27/07 eJnnifer Duran, DO [address] [place] [address] Referring Family Medicine 04/03/19 Avinash Velásquez MD [address] [place] [address] Referring REGISTERED SALES ASSISTANT 11/30/21 Team Status: Active Member Role Status Dates Jennifer Duran , DO Primary Care Provider Active Yevgeniy Cabrera Jr, MD Emergency Provider Active Kiko Saenz , DO Admit Provider, Attending Provider Active Web Weaver Relationship Specialty Start Date End Date Jennifer Duran, DO [address] [place] [address] PCP - General 11/27/07 Jennifer Duran, DO [address] [place] [address] Referring Family Medicine 04/03/19 Avinash Velásquez MD [address] [facility] [place] [address] Referring REGISTERED SALES ASSISTANT 11/30/21 Team Status: Inactive Member Role Status [...] Care Provider Active Jaime Aleman , DO PSYCHIATRIC Attending Provider Active Team Status: Active Member Role Status Austin Duran , DO [...] October 18, 2023 End: October 18, 2023 Web Weaver Relationship Specialty Start Date End Date Jennifer Duran DO [address] [place] [address] PCP - General Family Medicine 09/14/23 Team Status: Inactive Member Role Status Austin Duran DO Primary Care Provider Active S tart: November 08, 2023 End: November 08, 2023 Imani Cobrett APRN Emergency Provider Active Start: November 08, [...] January 19, 2024 End: January 19, 2024 Team Status: Inactive Member Role Status Austin Duran DO Primary Care Provide r, Attending Provider Active Start: March 23, 2024 End: March 23, 2024 Web Weaver Relationship Specialty Start Date End Date No Pcp, [place] [address] PCP - General Family Medicine 03/07/24 Web Weaver Relationship Specialty Start Date End Date No Pcp, [place] [address] PCP - General Family Medicine 03/07/24 Web Weaver Relationship Specialty Start Date End Date No Pcp, [place] [address] PCP - General Family Medicine 03/07/24 Goals (unrecognized section and content) Goals may [...] alternate section No data available for this sectionGoals may be documented in an alternate sectionNot on filedocumented as of this encounterNot on filedocumented as of this encounterNot on filedocumented as of this encounter REASON FOR VISIT (unrecogniz ed section and content) Reason Comments Lab Orders Reason Comments Anemia 16 month follow up Reason Comments Social Work Services Specialty Diagnoses / Procedures Referred By Contac t Referred To Contact Diagnoses Cyst of left ovary Iron deficiency anemia due to chronic blood loss Malabsorption of iron Procedures IRON SUCROSE INJECTION PER 1 MG Gil Ni, [employer] SALES REPRESENTATIVE.[address] [place] [address] Johny Treat [place] [place] [address] Referral ID Status Reason Start Date Expiration Date V isits Requested Visits Authorized [id number] Authorized 03/10/2022 06/12/2022 99 99 Reason Comments [...] mg, with no relief. H/o ovarian cysts. Reason Comments Abdominal Pain Patient states RLQ a bdominal pain that started low mid abdomen with nausea since last night. Patient denies falls, trauma, and urinary symptoms. Patient states normal bowel movement yesterday and that she normally goes every other day. Patient states she was recently started on Augmentin for tooth infection. Patient states she took Ketorolac approximately 3 hours ago with no relief. Reason Comments Abdominal Pain Pt presents to ER wi th complaints of abd pain that began 1 week ago pt sts it is intermittent and that she has a history of stage 4 endometriosis, pt sts she took toradol at 1830 and percocet at 1400 with no relief Reason Comments Abdominal Pain Patient states heraclio nued abdominal pain since being seen in this ED for same multiple times over the last month. Patient states pain worsened this AM. Patient states Hx of endometriosis. Patient denies falls and trauma to the abdomen. Patient denies nausea, vomiting, and diarrhea. Patient denies urinary symptoms. Reason Comments Follow-up Surgical consent Source Comments (unrecognize d section and content) In the event this informatio n is protected by the Federal Confidentiality of Alcohol and Drug Abuse Patient Records regulations: The Federal rules restrict any use of the information to criminally investigate or prosecute any alcohol or drug abuse patient.[facility] the event this information is protected by the Federal Confidentiality of Alcohol and Drug Abuse Patient Records regulations: The Federal rules restrict any use of the information to criminally investigate or prosecute any alcohol or drug abuse patient.[facility] Center[facility] the event this information is protected by the Federal Confidentiality of Alcohol and Drug Abuse Patient Records regulations: The Federal rules restrict any use of the information to criminally investigate or prosecute any alcohol or drug abuse patient.[facility] Center[facility] the event this information is protected by the Federal Confidentiality of Alcohol and Drug Abuse Patient Records regulations: The Federal rules restrict any use of the information to criminally investigate or prosecute any alcohol or drug abuse patient.[facility] Center[facility] the event this information is protected by the Federal Confidentiality of Alcohol and Drug Abuse Patient Records regulations: The Federal rules restrict any use of the information to criminally investigate or prosecute any alcohol or drug abuse patient.[facility] Center[facility] the event this information is protected by the Federal Confidentiality of Alcohol and Drug Abuse Patient Records regulations: The Federal rules restrict any use of the information to criminally investigate or prosecute any alcohol or drug abuse patient.[facility] CenterIn the event this information is protected by the Federal Confidentiality of Alcohol and Drug Abuse Patient Records regulations: The Federal rules restrict any use of the information to criminally investigate or prosecute any alcohol or drug abuse patient.[facility] Ordered Prescriptions (unrec ognized section [...] 50 mg, Oral, ONCE, 1 dose, On Tue01/22/24 at 1230 1230 (Given - Provid er: Sylvia Johnson RN) Scheduled Medication Order 02/14/2024 02/15/2024 02/16/2024 HYDROmorphone (DILAUDID) injection 0.5 mg (COMPLETED) 0.5 mg, Intravenous, ONCE, 1 dose, On Obdulia 02/16/24 at 1645 1628 (Given - Provid er: Una Levy RN) HYDROmorphone (DILAUDID) injection 1 mg (COMPLETED) 1 mg, Intravenous, ONCE, 1 dose, On Obdulia 02/16/24 at 1430 1421 (Given - Provid er: Una Levy RN) iohexol (OMNIPAQUE) 350 MG/ML injection 75 mL (COMPLETED) 75 mL, Intravenous, ONCE, 1 dose, On Obdulia 02/16/24 at 1615, Extravasation Risk, Radiology Procedure 1517 (Given - Radiol ogy - Provider: Trae Jones) Ondansetron 4mg/2ml (ZOFRAN) injection 4 mg (COMPLETED) 4 mg, Intravenous, ONCE, 1 dose, On Obdulia 02/16/24 at 1430 1417 (Given - Provid er: Una Levy RN) Sodium chloride 0.9% IV solution 500 mL (COMPLETED) 500 mL, Intravenous, ONCE, 1 dose, On Obdulia 02/16/24 at 1430 1416 ($$New Bag$$ - Provider: Una Levy RN)1541 (Stopped - Provider: Una Levy RN) Sodium chloride 0.9% IV solution 75 mL (COMPLETED) 75 mL, Intravenous, ONCE, 1 dose, On Obdulia 02/16/24 at 1615, Radiology Procedure 1517 ($$New Bag$$ - Provider: Trae Jones)1541 (Stopped - Provider: Una Levy RN) Scheduled Medication Order 02/22/2024 02/23/2024 02/24/2024 HYDROmorphone (DILAUDID) injection 0.5 mg (COMPLETED) 0.5 mg, Intravenous, ONCE, 1 dose, On Tue02/24/24 at 2130 2122 (Given - Provid er: Geri Burciaga RN) HYDROmorphone (DILAUDID) injection 0.5 mg (COMPLETED) 0.5 mg, Intravenous, ONCE, 1 dose, On Tue02/24/24 at 2330 2315 (Given - Provid er: Geri Burciaga RN) Ondansetron 4mg/2ml (ZOFRAN) injection 4 mg (COMPLETED) 4 mg, Intravenous, ONCE, 1 dose, On Tue02/24/24 at 2100 2122 (Given - Provid er: Geri Burciaga RN) Scheduled Medication Order 03/01/2024 03/02/2024 03/03/2024 hydroCODone-acetaminophen (NORCO) 5-325 MG per tablet 1 tablet (COMPLETED) 1 tablet, Oral, ONCE, 1 dose, On 03/03/24 at 1615 1632 (Given - Provid er: Geri Burciaga RN) FOR RECORDS PERTAINING TO PATIENTS WHO [...] BE BASED ON THE PRIMARY CLINICAL RECORDS. [facility]. provides no warranty or guarantee of the accuracy or completeness of information in this document.
[2024-04-08 22:18] VITALS: BMI 29.3
--- NOTE | 2024-04-08 22:20 | PC.NURSE ---
Patient had hysterectomy last week, today is having vaginal bleeding and lower abdominal pain.
--- NOTE | 2024-04-08 22:25 | ED.GENADUL1 ---
HPI HPI - General Adult General Chief complaint: Recheck/Abnormal Lab/Rx Stated complaint: Bleeding alot for surgery Time Seen by Provider: 04/08/24 22:15 Source: patient Mode of arrival: walk-in Limitations: no limitations History of Present Illness HPI narrative: This 39-year-old female who is status post abdominal hysterectomy in [place] for endometriosis presents for evaluation of lower abdominal pain with vaginal bleeding. The hysterectomy took place on Tuesday, 2 days ago. She has been taking stool softeners and Percocet but started having increasing pain in her lower abdomen around 7 PM and then went to the bathroom and passed a small amount of blood vaginally. She has a picture of the amount of bleeding on her phone. Appears to be a small amount of bright red blood. She is not currently bleeding. She denies any fever. She denies any chest pain or shortness of breath. She is tearful and holding her lower abdomen. Related Data Home Medications ?Medication ?Instructions ?Recorded ?Confirmed alprazolam 0.25 mg tablet 0.25 mg PO Q8H PRN anxiety 09/20/23 02/11/24 citalopram 20 mg tablet (Celexa) 20 mg PO DAILY 09/20/23 02/11/24 atenolol 25 mg tablet 25 mg PO Q24H 02/11/24 02/11/24 Previous Rx's ?Medication ?Instructions ?Recorded ketorolac 10 mg tablet 10 mg PO TID PRN pain #10 tabs 10/22/23 tramadol 50 mg tablet 50 mg PO Q4H PRN pain 3 days #15 10/22/23 tabs clindamycin HCl 300 mg capsule 300 mg PO Q8H 7 days #21 caps 02/13/24 Allergies Allergy/AdvReac Type Severity Reaction Status Date / Time morphine Allergy Severe itching Verified 04/08/24 22:13 prochlorperazine (From AdvReac Mild Anxiety Verified 04/08/24 22:13 Compazine) Opioid HPI Opioid Management Most Recent Opioid Data: Last Pain Scale 10 04/09/24 00:55 04/09/24 Last ED Pain Assessment 04/08/24 23:20 Last MAR Pain Assessment 04/09/24 00:55 Last ORT Total Score 2 09/20/23 05:45 09/20/23 Last ORT Risk Category Low Risk 09/20/23 05:45 09/20/23 Review of Systems ROS Status of ROS 10 or more systems reviewed and unremarkable except as noted in history and below [facility] Medical History (Updated 04/09/24 @ 01:30 by Radha Joseph MD) Ovarian cyst ?N83.209 - Unspecified ovarian cyst, unspecified side (ICD-10) Endometriosis ?N80.9 - Endometriosis, unspecified (ICD-10) LLQ abdominal pain ?R10.32 - Left lower quadrant pain (ICD-10) Complex cyst of left ovary ?N83.292 - Other ovarian cyst, left side (ICD-10) Toothache ?K08.89 - Other specified disorders of teeth and supporting structures (ICD-10) Surgical History (Updated 09/20/23 @ 06:52 by Marichuy Daily RN) History of removal of cyst ?Z98.890 - Other specified postprocedural states (ICD-10) History of cholecystectomy ?Z90.49 - Acquired absence of other specified parts of digestive tract (ICD-10) Family History (Updated 09/20/23 @ 05:46 by Marichuy Daily RN) Family/Other No problems noted. Father Family history of CHF (congestive heart failure) Family history of COPD (chronic obstructive pulmonary disease) Family history of diabetes mellitus Family history of hypertension Family history of myocardial infarction Mother Family history of hypertension Other Family history of cancer Social History Within the past year, how often did you have a drink containing alcohol: monthly or less Within the past year, how many standard drinks containing alcohol did you have on a typical day: 1 or 2 Within the past year, how often did you have six or more drinks on one occasion: never Total score: 0 Score interpretation: A score less than 3 is consistent with normal alcohol consumption. Smoking status: Never smoker Non-prescribed substance use: denies use Highest level of school completed/degree received: Associate degree: academic program Are you now , , , , never or living with a partner: In a typical week, how many times do you talk on the telephone with family, friends, or neighbors: 3 or more times per week How often do you get together with friends or relatives: 3 or more times per week Little interest or pleasure in doing things: not at all Feeling down, depressed, or hopeless: not at all Feel stressed/tense/nervous/anxious/difficulty sleeping: not at all Do you think of yourself as: straight/heterosexual Gender Identity: female Exam Narrative Exam Narrative: Vital signs and Nursing Notes reviewed: Patient is afebrile with a normal pulse, normal blood pressure, she is not hypoxic with pulse ox of 100% on room air General: Awake, alert, oriented, tearful female holding her lower abdomen, no respiratory distress HEENT: Normocephalic atraumatic, mucous membranes are moist and pink, eyes are clear, normal conjunctiva, vision is grossly intact Neck: Supple, no meningeal signs, no anterior or posterior cervical lymphadenopathy Chest: Lungs are clear to auscultation with good air entry, there is no wheezing rhonchi or rales appreciated no accessory muscle use, patient is speaking in complete sentences-no chest wall tenderness to palpation CVS: Regular rate and rhythm S1-S2, no murmurs rubs or gallops, pulses are brisk and equal bilaterally ABD: Softly distended, laparoscopic incision sites on the abdominal wall are covered with a skin glue and appear to be intact without local inflammation or infection. There is tenderness over the lower abdomen with mild fullness in this area, bowel sounds are mildly hypoactive - Limited pelvic exam was performed and there is no active bleeding in the vagina or at the vaginal cuff. Extremities: Moving all extremities, no lower extremity tenderness or swelling noted, negative Homans' sign, pulses are brisk and equal bilaterally Skin: Normal in appearance without rash,pallor, petechiae or purpura Neuro: No focal deficits Constitutional Vital Signs, click to edit/add: Last Vital Signs Temp 97.6 F 04/08/24 22:08 Pulse 70 04/08/24 23:21 Resp 18 04/08/24 23:21 BP 107/63 04/08/24 23:21 Pulse Ox 96 04/08/24 23:21 O2 Del Method Room Air 04/08/24 23:21 Course Vital Signs Vital signs: Vital Signs Temperature 97.6 F 04/08/24 22:08 Pulse Rate 90 04/08/24 22:08 Respiratory Rate 18 04/08/24 22:08 Blood Pressure 103/60 04/08/24 22:08 Pulse Oximetry 100 04/08/24 22:08 Oxygen Delivery Method Room Air 04/08/24 22:08 Temperature 97.6 F 04/08/24 22:08 Pulse Rate 70 04/08/24 23:21 Respiratory Rate 18 04/08/24 23:21 Blood Pressure 107/63 04/08/24 23:21 Pulse Oximetry 96 04/08/24 23:21 Oxygen Delivery Method Room Air 04/08/24 23:21 Medical Decision Making MDM Narrative Medical decision making narrative: This 39-year-old female who is 2 days postop abdominal hysterectomy due to endometriosis presents for evaluation of lower abdominal pain and the passage of a small amount of bright red blood when she used the bathroom earlier today. Upon arrival she is somewhat pale and uncomfortable appearing. She is ambulating and holding her lower abdomen. She has been using Percocet for pain. She has not had a bowel movement yet since her surgery. She has not had any fever. Her belly is tender in the lower segment of her abdomen. I performed a limited pelvic exam I do not appreciate any active bleeding or hemorrhaging from her pelvis. The patient does have an luis on her phone and states that her hemoglobin at the hospital was 10.2. Today it is 8.2. The estimated blood loss during her surgery says 50 cc. The remainder of her labs are normal. CT scan of the abdomen pelvis was ordered and is included in the body of this report and does not show any acute intrapelvic findings including excessive fluid, abscess or other notable abnormalities. The results of the CT scan were discussed at length with the patient with her mother at the bedside. She was given a copy to share with her [employer]. We did repeat her CBC and her hemoglobin went from 8.2-8.9. She did receive an additional dose of Dilaudid in the emergency department for ongoing pain. She feels comfortable being discharged home at this time. I did discuss the constipation that was noted on CT scan with her. She states she is taking Dulcolax twice a day. I suggested that she add Metamucil or MiraLAX to this dosing as the constipation can become an issue postoperatively, especially in light of receiving IV narcotics in the emergency department and also being on Percocet for her postop pain control. Medical Records Medical records narrative: The [address] [address] [address] Scan Report Signed Patient: ANTONIA DE LOS SANTOS MR#: [id number] : 1985 Acct:[id number] Age/Sex: 39 / F ADM Date: 04/08/24 Loc: ER Attending Dr: Ordering Physician: Radha Joseph Date of Service: 04/08/24 Procedure(s): CT abdomen pelvis w con Accession Number(s): [id number] cc: JENNIFER DURAN~ [facility] [address] [place], [place] [address] Patient Name: ANTONIA DE LOS SANTOS MRN: [id number] date: 1985 Sex: F Assigned Patient Location: ER Current Patient Location: ER Accession/Order Number: [id number] Exam Date: 04/08/2024 22:55 Report Date: 04/09/2024 01:18 At the request of: RADHA JOSEPH Procedure: CT abdomen pelvis w con CT OF THE ABDOMEN AND PELVIS WITH CONTRAST: 04/08/2024 10:55 PM EDT CLINICAL HISTORY: Postop. Hysterectomy with abdominal pain and vaginal bleeding. COMPARISONS: CT abdomen and pelvis with contrast 09/20/2023 05/08/2023. TECHNIQUE: Thin section axial CT images were obtained from the lung bases to the pubis symphysis. This CT exam was performed using one or more of the following dose reduction techniques: Automated exposure control, adjustment of the mA and/or kV according to patient size, or use of iterative reconstruction technique. Thin section coronal and sagittal images were reconstructed from the axial data set. All images were reviewed and interpreted. CONTRAST: Omnipaque 300, 100 mL IV without event. FINDINGS: LUNG BASES: Streaky areas of linear postop atelectasis and mild basilar interstitial edema likely from postop mild fluid overload and lower lobes with trace simple layering right pleural effusion and atelectasis. No left pleural effusion. No lung base consolidation. Cardiac chambers are normal. LIVER: Liver parenchyma is normal. No mass or cyst. Normal portal vein enhancement. GALLBLADDER: Cholecystectomy. BILIARY TREE: There is some mild stable postcholecystectomy intrahepatic and extrahepatic bile duct distention largely similar relative to 05/08/2023. Correlate with normal biliary labs. PANCREAS: Normal. SPLEEN: Normal. ADRENALS: Normal. KIDNEYS: Normal, without urolithiasis or hydronephrosis. URINARY BLADDER: Grossly unremarkable. PELVIC STRUCTURES: Recent total abdominal hysterectomy. There is no significant free fluid in the pelvis. No loculated fluid or abscess. No significant inflammatory changes. Only trace stranding and subtle fluid, expected given recent surgery. No other pelvic abnormality. BOWEL: No evidence of obstruction, gross mass, or inflammatory change. There is no significant diverticulosis. There is no evidence of diverticulitis. There is some moderate diffuse colonic stool which could reflect some postop constipation. APPENDIX: No active disease with normal appendix. LYMPH NODES: No pathologically enlarged lymph nodes identified. PERITONEUM: No intraperitoneal free air. No free intraperitoneal fluid. MESENTERY: Unremarkable. RETROPERITONEUM: The retroperitoneum is unremarkable. AORTA: Normal in caliber. BODY WALL: No body wall mass. OSSEOUS STRUCTURES: Unremarkable. No acute findings. CT/CT abdomen pelvis w con IMPRESSION: 1. Hysterectomy without obvious complications in the pelvis or elsewhere. 2. Trace simple layering right pleural effusion with streaky areas of the dependent discoid and dependent postop atelectasis of lower lobes. 3. Moderate colonic stool. Correlate for postop constipation. 4. No obvious active contrast extravasation or bleeding. Lab Data Lab results reviewed: Yes I reviewed the patient's lab results Labs: Lab Results 04/08/24 04/09/24 Range/Units 22:40 00:37 WBC 9.0 10.3 (4.0-11.0) 10^3/uL RBC 3.57 L 3.94 L (4.20-5.40) 10^6/uL Hgb 8.2 L 8.9 L (12.0-16.0) g/dL Hct 27.4 L 30.2 L (36.0-48.0) % MCV 76.8 L 76.6 L (81.0-99.0) fL MCH 23.0 L 22.6 L (26.7-34.0) pg MCHC 29.9 29.5 L (29.9-35.2) g/dL RDW 16.9 H 16.9 H (11.0-15.0) % Plt Count 437 459 H (150-450) 10^3/uL MPV 9.8 9.3 L (9.5-13.5) fL Neut % (Auto) 50.0 (43.0-75.0) % Lymph % (Auto) 42.0 (20.5-60.0) % [place] % (Auto) 6.3 (1.7-12.0) % Eos % (Auto) 1.1 (0.9-7.0) % Baso % (Auto) 0.4 (0.2-2.0) % Neut # (Auto) 4.5 (1.4-6.5) 10^3/uL Lymph # (Auto) 3.8 (1.2-3.8) 10^3/uL [place] # (Auto) 0.6 (0.3-0.8) 10^3/uL Eos # (Auto) 0.1 (0.0-0.7) 10^3/uL Baso # (Auto) 0.0 (0.0-0.1) 10^3/uL Abs Immat Gran (auto) 0.02 (0.00-0.03) 10^3/uL Imm/Tot Granulo (auto) 0.2 (0.0-0.5) % Sodium 139 (136-145) mmol/L Potassium 4.1 (3.5-5.1) mmol/L Chloride 106 (98-107) mmol/L Carbon Dioxide 25.3 (21.0-32.0) mmol/L Anion Gap 11.8 BUN 10.0 (7.0-18.0) mg/dL Creatinine 0.91 (0.55-1.02) mg/dL Est GFR ( Amer) >60 (>=60 mL/min/1.73m^2) Est GFR (Non-Af Amer) >60 (>=60 mL/min/1.73m^2) BUN/Creatinine Ratio 11.0 Glucose 86 (74-106) mg/dL Calcium 8.8 (8.5-10.1) mg/dL Total Bilirubin 0.2 (0.2-1.0) mg/dL AST 32 (15-37) U/L ALT 35 (14-59) U/L Alkaline Phosphatase 75 (46-116) U/L Total Protein 6.4 (6.4-8.2) g/dL Albumin 3.0 L (3.4-5.0) g/dL Globulin 3.4 g/dL Albumin/Globulin Ratio 0.9 Discharge Plan Discharge Chief Complaint: Recheck/Abnormal Lab/Rx Clinical Impression: Postoperative abdominal pain, Anemia, Post-op bleeding, Constipation Patient Disposition: Home, Self-Care Time of Disposition Decision: 01:33 Condition: Good Prescriptions / Home Meds: No Action tramadol 50 mg tablet 50 mg PO Q4H PRN (Reason: pain) 3 Days Qty: 15 0RF ketorolac 10 mg tablet 10 mg PO TID PRN (Reason: pain) Qty: 10 0RF alprazolam 0.25 mg tablet 0.25 mg PO Q8H PRN (Reason: anxiety) citalopram [Celexa] 20 mg tablet 20 mg PO DAILY atenolol 25 mg tablet 25 mg PO Q24H clindamycin HCl 300 mg capsule 300 mg PO Q8H 7 Days Qty: 21 0RF Print Language: Surinamese Instructions: Constipation (ED), High Fiber Diet (ED), Pain Management After Surgery (DC) Referrals: JENNIFER DURAN [Primary Care Provider] - 1 week
[2024-04-08] MEDS: HYDROMORPHONE HCL 1 MG/ML CARTRIDGE IV (22:47)
[2024-04-08] MEDS: ONDANSETRON PF 4 MG/2 ML VIAL IV (22:47)
[2024-04-08 22:50] LABS: Basophils Percent Auto 0.4 % (0.2-2.0); Eosinophils Absolute Auto 0.1 10^3/uL (0.0-0.7); Eosinophils Percent Auto 1.1 % (0.9-7.0); Hematocrit 27.4 % (36.0-48.0); Hemoglobin 8.2 g/dL (12.0-16.0); Immature Granulocytes Abs Auto 0.02 10^3/uL (0.00-0.03); Immature Granulocytes Pct Auto 0.2 % (0.0-0.5); Lymphocytes Absolute Auto 3.8 10^3/uL (1.2-3.8); Mean Corpuscular HGB Conc 29.9 g/dL (29.9-35.2); Mean Corpuscular Volume 76.8 fL (81.0-99.0); Mean Platelet Volume 9.8 fL (9.5-13.5); Monocytes Absolute Auto 0.6 10^3/uL (0.3-0.8); Monocytes Percent Auto 6.3 % (1.7-12.0); Neutrophils Absolute Auto 4.5 10^3/uL (1.4-6.5); Platelet Count 437 10^3/uL (150-450); Red Blood Count 3.57 10^6/uL (4.20-5.40); Red Cell Distribution Width 16.9 % (11.0-15.0)
[2024-04-08 23:06] LABS: Alanine Aminotransferase 35 U/L (14-59); Albumin Globulin Ratio 0.9; Alkaline Phosphatase 75 U/L (46-116); Anion Gap 11.8; Aspartate Amino Transferase 32 U/L (15-37); Bilirubin Total 0.2 mg/dL (0.2-1.0); Calcium 8.8 mg/dL (8.5-10.1); Carbon Dioxide 25.3 mmol/L (21.0-32.0); Chloride 106 mmol/L (98-107); Estimated GFR (African America >60 (>=60 mL/min/1.73m^2); Estimated GFR (Non-African Ame >60 (>=60 mL/min/1.73m^2); Globulin 3.4 g/dL; Glucose 86 mg/dL (74-106); Potassium 4.1 mmol/L (3.5-5.1); Sodium 139 mmol/L (136-145); Total Protein 6.4 g/dL (6.4-8.2)
[2024-04-08 23:21] VITALS: BP 107/63; PULSE 70; O2SAT 96
[2024-04-09 00:51] LABS: Hematocrit 30.2 % (36.0-48.0); Hemoglobin 8.9 g/dL (12.0-16.0); Mean Corpuscular HGB Conc 29.5 g/dL (29.9-35.2); Mean Corpuscular Hemoglobin 22.6 pg (26.7-34.0); Mean Corpuscular Volume 76.6 fL (81.0-99.0); Mean Platelet Volume 9.3 fL (9.5-13.5); Platelet Count 459 10^3/uL (150-450); Red Blood Count 3.94 10^6/uL (4.20-5.40); Red Cell Distribution Width 16.9 % (11.0-15.0); White Blood Count 10.3 10^3/uL (4.0-11.0)
[2024-04-09] MEDS: 0.9 % SODIUM CHLORIDE 1,000 ML 1000 ML IV (00:55)
[2024-04-09] MEDS: HYDROMORPHONE HCL 1 MG/ML CARTRIDGE IV (00:55)
== END 2024-04-09 01:41 | disposition home or self-care (01) ==
PROVIDERS: Emergency Provider Emergency Medicine; PCP Family Medicine
DX: G89.18 Other acute postprocedural pain (principal); R10.9 Unspecified abdominal pain; D64.9 Anemia, unspecified; K59.00 Constipation, unspecified; N99.820 Postprocedural hemorrhage of a genitourinary system organ or structure following a genitourinary system procedure; Z90.710 Acquired absence of both cervix and uterus
CPT/HCPCS: 36415; 74177; 80053; 85025; 85027; 96374; 96375; 96376; 99285; J1171; J2405; Q9967

== ENCOUNTER 2024-04-12 20:05 | Emergency (ER) | payer BC, SELFPAY ==
[2024-04-12 20:09] VITALS: BP 160/88; PULSE 115; TEMP 36.8; O2SAT 100; BMI 30.8
--- OUTSIDE RECORDS SUMMARY | 2024-04-12 20:29 | XMS_ITS | CCD ---
Author Organization [facility] Care Team Providers Care 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 Name Role Phone DO Jennifer Duran Primary Care Provider DO Augustus Santiago Attending Provider [phone] DO Amaury Barlow Emergency Provider [phone] Jennifer Duran Primary Care Physician Jennifer Duran Unavailable DO Jennifer Duran Primary Care Provider [phone] DO Jennifer Duran Attending Provider Jennifer Duran DO Primary Care Provider Jennifer Duran DO Unavailable Didier BARNETT, Penola P Unavailable Jennifer Duran DO Primary Care Provider Jennifer Duran DO Unavailable DO Jennifer Duran Primary Care Provider DO Jennifer Duran Attending Provider MD Yevgeniy Cabrera Jr Emergency Provider DO Kiko Saenz Admit Provider DO Kiko Saenz Attending Provider [phone] Jennifer Duran DO Primary Care Provider Jennifer Duran DO Unavailable [phone] Didier BARNETT, Penola P Unavailable [phone] JENNIFER DURAN Primary Care Unavailable GIL NI Referring Unavailable GIL NI Referring Unavailable JENNIFER DURAN Primary Care Unavailable GIL NI Attending Unavailable JENNIFER UDRAN Referring Unavailable JENNIFER DURAN Primary Care Unavailable SABA REYNOLDS Referring Unavailable JENNIFER DURAN Primary Care Unavailable BELKIS SANDOVAL Admitting Unavailable DR JENNIFER DURAN Primary Care Unavailable MARTITA, DR JASMIN Rosenbaum Consulting UnavailBELKIS Blanco Attending Unavailable KIMMIE, DR AUBREY Varghese Consulting Unavailable BELKIS SANDOVAL Consulting Unavailable DO Jennifer Duran Primary Care Provider DO Elier Jackson Emergency Provider DO Ming Childress Emergency Provider MD Megan Garcia Admit Provider MD Megan Muniz Attending Provider DO Kiko Saenz Other Provider MD Christi Aquino Attending Provider DO Jaime Aleman Attending Provider LLC, GENERIC Primary Care Physician Unavailab DO Jennifer Rm Primary Care Provider arleen, DO Elier Leos Emergency Provider DO Jaime Aleman Attending Provider DO Ming Childress Emergency Provider UnavaMD Megan Lira Admit Provider MD Christi Aquino Attending Provider [phone] Visci, DO Hoover Other Provider NO FAMILY, PHYSICIAN Primary Care Provider Unava ilable MD MCKINLEY, EVGENY Attending Unavailable JENNIFER DURAN Primary Care Unavailable DO Elier Jackson Emergency Provider NONE, XXXX Primary Care Physician Unavailab DESTINI Sheehan Attending Unavailable TARUN BRADEN Attending Unavailable Jennifer Duran DO Primary Care Provider Unavail able DO Jennifer Duran Primary Care Provider [phone] CATY Corbett Emergency Provider [phone] DO Jennifer Duran Attending Provider Jennifer Duran Primary Care Unavailable Megan Muniz Admitting Unavailable Kiko Saenz Consulting Unavailable Christi Aquino Attending Unavailable Imani Corbett Admitting Unavailable Jennifer Duran Primary Care Unavailable Imani Corbett Attending Unavailable Elier Jackson Attending Unavailable Manuel, Elier M Admitting Unavailable NO FAMILY, PHYSICIAN Primary Care Unavailable Roger, Jennifer Primary Care Unavailable Ming Childress Attending Unavailable Ming Chlidress Admitting Unavailable Girivelisse, Jennifer Primary Care Unavailable Roger, Jennifer Attending Unavailable Roger, Jennifer Admitting Unavailable Roger, Jennifer Primary Care Unavailable Pawans - CHC, Jaime P Attending Unavailable Pawans - CHC, Jaime P Admitting Unavailable Elier Jackson M Attending Unavailable Roger, Jennifer Primary Care [...] Dumont Attending Unavailable Ritesh Heath Attending Unavailable Unavailable Primary Care Provider Unavailabl e DAVI RIVAS Attending Unavailable JENNIFER MOORE Attending Unavailable DENTON [...] NO PCP, NO PCP Primary Care Unavailable KARIVAN OLIVERHEL D Attending Unavailable MORENO TARIK D Referring Unavailable NO PCP, NO PCP Primary Care Unavailable NO PCP, NO PCP Primary Care Unavailable GUSTAVO DAVIES Attending UnavailGUSTAVO Burnett Attending UnavailGUSTAVO Burnett Referring Unavaila chau NO PCP, NO PCP Primary Care Unavailable NO PCP, NO PCP Primary Care Unavailable JIMENA FARMER Attending Unavailable NO PCP, NO PCP Primary Care Unavailable TYRONE CHENG Attending Unavailable ADIEL APARICIO Referring Unavailable NO PCP, NO PCP Primary Care Unavailable NO PCP, NO PCP Primary Care Unavailable ADIEL APARICIO Admitting Unavailable ADIEL APARICIO Attending Unavailable NO PCP, NO PCP Primary Care Unavailable No Pcp, No Pcp Primary Care Provider Unavailabl e Allergies Allergy Classification Reported Allergen(s) Allergy Type Date of Onset Reaction(s) Facility (20 sources) Morphine; Translations: [MORPHINE] Drug Allergy 06-20-19 Other: See Comments, Itching (finding), Itching, Hives [facility] (19 sources) Atenolol Drug Allergy 04-18-[address] Cantu/ Dizzy [facility] (6 sources) seasoninig Propensity to adverse reactions Unknown [email or web address] Other (1 source) Morphine Drug Allergy 07-28-19 [facility] Rep[facility] (18 sources) Seasonal allergy Propensity to adverse reactions 04-18-20 Unknown, Watery Eye [facility] (19 sources) Prochlorperazine; Translations: [prochlorperazine ] Drug Allergy 05-25-20 Feeling nervous (finding), Anxiety [facility] (1 source) Morphine Drug Allergy 04-30-20 [facility] Repository (1 source) No Known Medication Allergies; Translations: [No Known Medication Allergies] Propensity to adverse reactions (disorder) [facility] Repository (3 sources) Atenolol Propensity to adverse reactions to drug 04-18-20 [facility] (3 sources) Phenothiazine Propensity to adverse reactions to drug 05-25-20 Anxiety, Itching [facility] (3 sources) Octacosanol Propensity to adverse reactions to drug 04-18-20 [facility] Medications Current Medications Medication Drug Class(es) Dates Sig (Normalized) Sig (Original) acetaminophen 500 mg oral tablet (1 source) Start: 04-06-2024 take 2 tablets by mouth every eight hours acetaminophen (TYLENOL EXTRA STRENGTH) 500 mg tablet Take 2 tablets (1,000 mg total) by mouth every 8 (eight) hours. 60 tablet 04/06/2024 Active acetaminophen 325 mg / HYDROcodone bitartrate 5 mg oral tablet (20 sources) Opioid Agonist Start: 04-05-2024 HYDROcodone-acetami nophen (NORCO) 5-325 mg per tablet Indications: Abdominal pain, unspecified abdominal location Take 1 tablet by mouth every 6 (six) hours as needed for pain for up to 3 doses. Max Daily Amount: 4 tablets 3 tablet 04/05/2024 Active Start: 03-03-2024 End: 03-03-2024 1 tablet, Oral, ONCE, 1 dose , On 03/03/24 at 1615 Start: 02-11-2024 take 1 tablet by suman th every six hours hydroCODone-acetaminophen 5-325 MG tablet TAKE 1 TABLET [...] for 3 day(s), 12 tab(s), Refill(s) 0, [facility]/pharmacy #[id number], 165.1, cm, 07/31/23 15:42:00 EST, [...] Discontinued 1 TAB PO EVERY 4-6 HOURS 10 February 06, 2023 March 29, 2023 1:48am ALPRAZolam 0.25 mg oral tablet (20 sources) Benzodiazepine Start: 09-14-2023 End: 03-21-2024 Alprazolam Active 0.25 MG PO .COMPLEX 5 2 March 21, 2024 3:30pm 0.25 mg orally [...] (1 source) Penicillin-class Antibacterial Start: 2 End: take 1000 mg by mouth every twelve hours amoxicillin 400 mg/5 mL Oral Liq 1,000 mg = 12.5 mL, Oral, q12hr, X 10 day(s), # 250 mL, Refills(s) 0, Pharmacy: [facility]/pharmacy #[id number], 166, cm, 12/04/21 12:54:00 EDT, Height/Length Dosing, 84, kg, 12/04/21 12:54:00 EDT, Weight Dosing Start Date: 12/04/21 Stop Date: 12/14/21 Status: Ordered amoxicillin 875 mg / clavulanate 125 mg oral tablet (20 sources) Penicillin-class Antibacterial Start: End: Amoxicillin-clavula carson 875-125 MG tablet Take by mouth. 02/13/2024 02/20/2024 Active Start: 02-13-2024 End: 02-20-2024 Augmentin 875 mg-125 mg Tab 1 tab(s), Oral, q12hr for 7 day(s), 14 tab(s), Refill(s) 0, [facility]/pharmacy #[id number], 165.1, cm, 02/13/24 0:28:00 EDT, [...] food for 10 days Jan, Active Start: 05-06-2022 take 10 mL by mouth twice daily [...] (20 sources) beta-Adrenergic Graciela Start: 01-19-2024 take 1 tablet by mouth in the morning atenoloL (TENORMIN) 25 mg tablet Take 1 tablet (25 mg total) by mouth in the morning. 01/19/2024 Active Start: 01-19-2024 End: 03-23-2024 take 25 mg [...] q12hr, # 20 tab(s), Refills(s) 0, Pharmacy: [facility]/pharmacy #[id number], 165, cm, 09/26/23 14:18:00 EDT, Height/Length Dosing, 81.2, kg, 09/26/23 14:18:00 EDT, Weight Dosing Start Date: 09/26/23 Status: Ordered docusate sodium 50 mg / sennosides, residential 8.6 mg oral tablet (1 source) Start: 04-06-2024 take 1 tablet by mouth in the morning sennosides-docusat e sodium (SENNA WITH DOCUSATE SODIUM) 8.6-50 mg Take 1 tablet by mouth in the morning and 1 tablet before bedtime. 60 tablet 04/06/2024 Active doxycycline hyclate 100 mg oral capsule (17 sources) Tetracycline-class Drug Start: 04-11-2023 take 1 capsule by mouth every twelve hours Doxycycline Hyclate 100 MG 1 capsule Orally Twice a day for 10 days Mar, Active Start: 06-20-2019 End: 04-28-2022 take 100 mg by mouth twice daily Doxycycline Monohydrate Discontinued 100 MG PO Twice daily June 20, 2019 1:00am April 28, 2022 1:50am 84 hr estradiol 0.63591 mg/hr / norethindrone acetate 0.61480 mg/hr transdermal system (1 source) Estrogen Start: 04-09-2024 estradiol-norethindrone acet (COMBIPATCH) 0.05-0.14 mg/[address] 1 patch on the skin 2 (two) times a week. 24 patch 4 04/09/2024 Active ferrous sulfate (20 sources) Start: 07-23-2020 take 1 tablet by mouth every other day Ferrous Sulfate 325 (65 [...] day(s), # 20 tab(s), Refills(s) 0, Pharmacy: [facility]/pharmacy #[id number], 165, cm, 09/26/23 14:18:00 EDT, Height/Length Dosing, 81.2, kg, 09/26/23 14:18:00 EDT, Weight Dosing Start Date: 09/26/23 Stop Date: 10/01/23 Status: Ordered ibuprofen 800 mg oral tablet (16 sources) Nonsteroidal Anti-inflammatory Drug Start: 04-06-2024 take 1 tablet by mouth every eight hours ibuprofen (MOTRIN) 800 mg tablet Take 1 tablet (800 mg total) by mouth every 8 (eight) hours. 60 tablet 04/06/2024 Active Start: 04-28-2022 End: 03-29-2023 take 600 mg [...] tablet by suman th every 6 hours. ketorolac tromethamine 10 mg oral tablet (8 sources) Nonsteroidal Anti-inflammatory Drug, Cyclooxygenase Inhibitor take 1 tablet by mouth every six hours as needed for pain ketorolac (TORADOL) 10 mg tablet Take 1 tablet (10 mg total) by mouth every 6 (six) hours as needed for pain. Active mupirocin 0.02 mg/mg topical ointment (1 source) RNA Synthetase Inhibitor Antibacterial Start: 12-05-19 End: 12-15-19 mupirocin Top 2% Oint 1 luis, Topical, TID for 10 day(s), 22 gm, Refill(s) 0, [facility]/pharmacy #[id number], 166, cm, 12/04/21 12:54:00 EDT, Height/Length Dosing, 84, kg, 12/04/21 12:54:00 EDT, Weight Dosing Start Date: 12/04/21 Stop Date: 12/14/21 Status: Ordered nabumetone 750 mg oral tablet (3 sources) Nonsteroidal Anti-inflammatory Drug Start: 05-08-20 take 1 tablet by mouth every twelve hours as needed for pain nabumetone 750 MG tablet take 1 tablet by mouth every 12 hours as needed for pain 05/08/2023 Active naloxone hydrochloride 40 mg/ml nasal spray (3 sources) Opioid Antagonist Start: 02-16-20 End: 02-16-20 naloxone 4 MG/0.1ML 1 spray by Nasal route once for 1 dose. Maurepas into the nose as directed. Call 911. If no response in 2 minutes use a new nasal spray in other nostril. Repeat until help arrives. 1 Each 02/16/2024 Active naloxone (NARCAN) 4 mg/actuation spray,non-aerosol nasal spray (1 source) Start: 04-06-20 naloxone (NARCAN) 4 mg/actuation spray,non-aerosol nasal spray Administer 1 spray (4 mg total) into alternating nostrils as needed for opioid reversal. 2 each 04/06/2024 Active ondansetron 4 mg disintegrating oral tablet (20 sources) Serotonin-3 Receptor Antagonist Start: 02-24-20 End: 02-24-20 4 mg, Intravenous, ONCE, 1 dose, On 02/24/24 at 2100 Start: 02-16-2024 End: 02-16-2024 4 mg, Intravenous, ONCE, 1 d ose, On Obdulia 02/16/24 at 1430 Start: 01-22-2024 Ondansetron 4 [...] 2022 1:50am oxyCODONE hydrochloride 5 mg oral tablet (13 sources) Opioid Agonist Start: 04-06-2024 End: 04-13-2024 take 1 tablet by mouth every six hours as needed for pain oxyCODONE (ROXICODONE) 5 mg immediate release tablet Indications: Endometriosis Take 1 tablet (5 mg total) by mouth every 6 (six) hours as needed for pain for up to 3 days. Max Daily Amount: 20 mg 12 tablet 04/10/2024 04/13/2024 Active Start: 04-24-2023 End: 04-27-2023 oxyCODONE 5 mg Cap 5 mg = 1 cap(s), Oral, q6hr, PRN Pain 8-10, X 3 day(s), # 12 cap(s), Refills(s) 0, Pharmacy: [facility]/pharmacy #[id number], 165.1, cm, 04/24/23 13:32:00 EST, Height/Length Dosing, [...] 12 March 29, 2023 polyethylene glycol 3350 73544 mg powder for oral solution (2 sources) Osmotic Laxative Start: 09-26-2023 End: 10-03-2023 take 17 g by mouth once daily Miralax 3350 17 gram packet 17 gm, Oral, Daily, X 7 day(s), # 119 gm, Refills(s) 0, Pharmacy: [facility]/pharmacy #[id number], 165, cm, 09/26/23 14:18:00 EDT, [...] Drug Class(es) Dates Sig (Normalized) Sig (Original) [id number] 200 actuat albuterol 0.09 mg/actuat metered dose [...] 30 mg oral tablet (7 sources) Uncompetitive H-ctfdsy-N-asparta te Receptor Antagonist, Sigma-1 Agonist Start: 08-11-2021 take 1 tablet by mouth every six hours as needed Fletcher DMT 30-30 MG 1 tablet Orally q6 [...] mL) syrup (12 sources) Start: 09-07-2023 End: 09-07-2023 Hydrocodone-Homatropine (Hycodan) [...] tablet Discontinued 2 MG PO Q4H 30 7 April 28, 2022 March 29, 2023 1:48am iohexol (OMNIPAQUE) 350 MG/ML injection 75 mL (1 source) Start: 02-16-2024 End: 02-16-2024 75 mL, Intravenous, ONCE, 1 dose, On Obdulia 02/16/24 at 1615, Extravasation Risk, Radiology Procedure Multivitamins-Iron tab (7 sources) take 1 tablet by mouth once daily Multivitamins-Iron tab Take 1 tablet by mouth once daily. 0 Active Comment on above: Take 1 tablet by suman th once daily. naproxen 500 mg oral tablet (12 sources) Nonsteroidal Anti-inflammatory Drug Start: 03-29-2023 End: 04-30-2023 take 500 mg by mouth twice daily Naproxen Discontinued 500 MG PO Twice daily March 29, 2023 12:00am April 30, 2023 6:33pm potassium chloride 20 meq extended release oral tablet (15 sources) Start: 09-14-2021 End: 04-28-2022 take 20 mEq by mouth once daily Potassium Chloride Discontinued 20 MEQ PO Daily September 14, 2021 12:00am April 28, 2022 1:50am predniSONE 20 mg oral tablet (20 sources) Start: 08-11-2021 predniSONE 20 MG take 3 tablets Orally [...] Prochlorperazine Maleate Discontinued 5 MG PO Q8H 30 12March 29, 2023 12:00am April 30, 2023 6:33pm 250 ml sodium chloride 9 mg/ml injection (2 sources) Start: 02-16-2024 End: 09-05-2024 75 mL, Intravenous, ONCE, 1 dose, On [...] ABSOLUTE BASOPHIL 0.1 X10E9/L Normal 0.0-0.[address] [facility] Comment on above: Performed By: #### N UM #### [facility] ([id number]) [address] [place] [address] 52521 ABSOLUTE NEUTROPHIL 4.5 X10E9/L Normal 1.5-6.6 [facility] Comment on above: Performed By: #### N UM #### [facility] ([id number]) [address] [place] [address] 22551 Basophils/100 WBC (Bld) 1.1 % Normal [facility] Comment on above: Performed By: #### N UM #### [facility] ([id number]) [address] [place] [address] 20390 Eosinophils (Bld) [#/Vol] 0.0 10*3/uL Normal 0.0-0.4 [facility] Comment on above: Performed By: #### N UM #### [facility] ([id number]) [address] [place] [address] 58288 Eosinophils/100 WBC (Bld) 0.5 % Normal [facility] Comment on above: Performed By: #### N UM #### [facility] ([id number]) [address] [place] [address] 79407 Erythrocyte distribution width (RBC) [Ratio] 18.3 % High 11.5-15.0 [facility] Comment on above: Performed By: #### N UM #### [facility] ([id number]) [address] [place] [address] 64235 Hematocrit (Bld) [Volume fraction] 32.1 % Low 35-47 [facility] Comment on above: Performed By: #### N UM #### [facility] ([id number]) [address] [place] [address] 08610 Hemoglobin (Bld) [Mass/Vol] 10.2 g/dL Low 11.7-15.5 [facility] Comment on above: Performed By: #### N UM #### [facility] ([id number]) [address] [place] [address] 96527 Lymphocytes (Bld) [#/Vol] 2.5 10*3/uL Normal 1.0-3.5 [facility] Comment on above: Performed By: #### N UM #### [facility] ([id number]) [address] [place] [address] 49756 Lymphocytes/100 WBC (Bld) 33.1 % Normal [facility] Comment on above: Performed By: #### N UM #### [facility] ([id number]) [address] [place] [address] 04189 MCH (RBC) [Entitic mass] 22.6 pg Low 27-34 [facility] Comment on above: Performed By: #### N UM #### [facility] ([id number]) [address] [place] [address] 22286 MCHC (RBC) [Mass/Vol] 31.7 g/dL Low 32-[address] [facility] Comment on above: Performed By: #### N UM #### [facility] ([id number]) [address] [place] [address] 85014 MCV (RBC) [Entitic vol] 71 fL Low 80-100 [facility] Comment on above: Performed By: #### N UM #### [facility] ([id number]) [address] [place] [address] 42396 Monocytes (Bld) [#/Vol] 0.5 10*3/uL Normal 0-0.9 [facility] Comment on above: Performed By: #### N UM #### [facility] ([id number]) [address] [place] [address] 86788 Monocytes/100 WBC (Bld) 6.2 % Normal [facility] Comment on above: Performed By: #### N UM #### [facility] ([id number]) [address] [place] [address] 58371 Neutrophils/100 WBC (Bld) 59.1 % Normal [facility] Comment on above: Performed By: #### N UM #### [facility] ([id number]) [address] [place] [address] 09881 Platelet mean volume (Bld) [Entitic vol] 7.6 fL Normal 7-12 [facility] Comment on above: Performed By: #### N UM #### [facility] ([id number]) [address] [place] [address] 27916 Platelets (Bld) [#/Vol] 582 10*3/uL High 150-450 [facility] Comment on above: Performed By: #### N UM #### [facility] ([id number]) [address] [place] [address] 55783 RBC COUNT 4.51 X10E12/L Normal 3.80-5.20 [facility] Comment on above: Performed By: #### N UM #### [facility] ([id number]) [address] [place] [address] 83296 WBC (Bld) [#/Vol] 7.7 10*3/uL Normal 4.0-11.0 [facility] Comment on above: Performed By: #### N UM #### [facility] ([id number]) [address] [place] [address] 99649 COMPREHENSIVE METABOLIC PANE Van 04-05-2024 Albumin [Mass/Vol] 4.3 g/dL Normal 3.2-5.3 [facility] Comment on above: Performed By: #### N UM #### [facility] ([id number]) [address] [place] [address] 94828 ALP [Catalytic activity/Vol] 65 U/L Normal 39-130 [facility] Comment on above: Performed By: #### N UM #### [facility] ([id number]) [address] [place] [address] 91688 ALT [Catalytic activity/Vol] 20 U/L Normal 0-31 [facility] Comment on above: Performed By: #### N UM #### [facility] ([id number]) [address] [place] [address] 75866 Anion gap [Moles/Vol] 8 mmol/L Normal 5-[address] [facility] Comment on above: Performed By: #### N UM #### [facility] ([id number]) [address] [place] [address] 31566 AST [Catalytic activity/Vol] 24 U/L Normal 0-41 [facility] Comment on above: Performed By: #### N UM #### [facility] ([id number]) [address] [place] [address] 60785 Bilirubin [Mass/Vol] 0.8 mg/dL Normal 0.3-1.2 [facility] Comment on above: Performed By: #### N UM #### [facility] ([id number]) [address] [place] [address] 41852 Calcium [Mass/Vol] 8.9 mg/dL Normal 8.5-10.5 [facility] Comment on above: Performed By: #### N UM #### [facility] ([id number]) [address] [place] [address] 45147 Chloride [Moles/Vol] 104 mmol/L Normal 98-109 [facility] Comment on above: Performed By: #### N UM #### [facility] ([id number]) [address] [place] [address] 39433 CO2 [Moles/Vol] 22 mmol/L Normal 22-32 [facility] Comment on above: Performed By: #### N UM #### [facility] ([id number]) [address] [place] [address] 20812 Creatinine [Mass/Vol] 0.62 mg/dL Normal 0.40-1.[address] [facility] Comment on above: Result Comment: METH OD TRACEABLE TO IDMS STANDARD Performed By: #### N UM #### [facility] ([id number]) [address] [place] [address] 02915 eGFR (CKD-EPI) NON-RACE DEPENDENT >90 Normal >59 [facility] Comment on above: Result Comment: Reported eGFR is based on the CKD-EPI 2020 equation that does not use a race coefficient. Performed By: #### N UM #### [facility] ([id number]) [address] [place] [address] 30593 Glucose [Mass/Vol] 107 mg/dL High 65-99 [facility] Comment on above: Performed By: #### N UM #### [facility] ([id number]) [address] [place] [address] 92000 Potassium [Moles/Vol] 3.7 mmol/L Normal 3.5-5.[address] [facility] Comment on above: Performed By: #### N UM #### [facility] ([id number]) [address] [place] [address] 22368 Protein [Mass/Vol] 8.0 g/dL Normal 6.0-8.0 [facility] Comment on above: Performed By: #### N UM #### [facility] ([id number]) [address] [place] [address] 35355 Sodium [Moles/Vol] 134 mmol/L Normal 134-146 [facility] Comment on above: Performed By: #### N UM #### [facility] ([id number]) [address] [place] [address] 20055 Urea nitrogen [Mass/Vol] 8 mg/dL Normal 5-23 [facility] Comment on above: Performed By: #### N UM #### [facility] ([id number]) [address] [place] [address] ABDOMEN AND PELVIS WO CON Ton [...] Atwood MD on 04/05/2024 3:57 PM Normal [facility] HCG ( test) Ql (U)o n 04-05-2024 Beta HCG ( test) Ql (U) Negative Normal NEG [facility] Comment on above: Performed By: #### N UM #### [facility] ([id number]) [address] [place] [address] 33444 LIPASEon 04-05-2024 Lipase [Catalytic activity/Vol] 30 U/L Normal 17-40 [facility] Comment on above: Performed By: #### N UM #### [facility] ([id number]) [address] [place] [address] 71741 Lactate (P arely) [Moles/Vol]o n 04-05-2024 LACTATE W/REFLEX 1.7 mmol/L Normal 0.4-2.0 [facility] Comment on above: Result Comment: Result did not trigger repeat Lactate, re-order if needed. Performed By: #### N UM #### [facility] ([id number]) [address] [place] [address] [place] [address] URN MACROSCOPIC NURon 2023 BILIRUBIN AUDREY Negative Normal NEG [facility] Comment on above: Performed By: #### N UM #### [facility] ([id number]) [address] [place] [address] [place] [address] BLOOD/HGB AUDREY Negative Normal NEG [facility] Comment on above: Performed By: #### N UM #### [facility] ([id number]) [address] [place] [address] [place] [address] GLUCOSE AUDREY Negative Normal NEG [facility] Comment on above: Performed By: #### N UM #### [facility] ([id number]) [address] [place] [address] [place] [address] KETONES AUDREY Negative Normal NEG [facility] Comment on above: Performed By: #### N UM #### [facility] ([id number]) [address] [place] [address] [place] [address] LEUKOCYTE ESTERASE AUDREY Negative Normal NEG [facility] Comment on above: Performed By: #### N UM #### [facility] ([id number]) [address] [place] [address] [place] [address] NITRITE AUDREY Negative Normal NEG [facility] Comment on above: Performed By: #### N UM #### [facility] ([id number]) [address] [place] [address] [place] [address] PH AUDREY 7.0 Normal 5.0-8.5 [facility] Comment on above: Performed By: #### N UM #### [facility] ([id number]) [address] [place] [address] [place] [address] PROTEIN AUDREY Negative Normal NEG [facility] Comment on above: Performed By: #### N UM #### [facility] ([id number]) [address] [facility], [place] [address] SPECIFIC GRAVITY AUDREY 1.010 Normal 1.003-1.035 [facility] Comment on above: Performed By: #### N UM #### [facility] ([id number]) [address] [facility], [place] [address] UROBILINOGEN AUDREY 0.2 eu/dL Normal <1.1 [facility] Comment on above: Performed By: #### N UM #### [facility] ([id number]) [address] [facility], [place] [address] US PELVIC WITH TRANSVAGINAL AND DUPLEXon 04-05-2024 [...] Martinez MD on 04/05/2024 3:03 PM Normal [facility] CBC AND AUTO DIFFon 03-28-20 ABSOLUTE BASOPHIL 0.1 X10E9/L Normal 0.0-0.2 [facility] Comment on above: Performed By: #### C BCA, CMP #### [facility] ([id number]) [address] [place] [address] ABSOLUTE NEUTROPHIL 2.4 X10E9/L Normal 1.5-6.6 [facility] Comment on above: Performed By: #### C BCA, CMP #### [facility] ([id number]) [address], [address] [place] [address] Basophils/100 WBC (Bld) 1.1 % Normal [place] Comment on above: Performed By: #### C BCA, CMP #### [facility] ([id number]) [address] [place] [address] Eosinophils (Bld) [#/Vol] 0.1 10*3/uL Normal 0.0-0.4 [facility] Comment on above: Performed By: #### C BCA, CMP #### [facility] ([id number]) [address] [place] [address] Eosinophils/100 WBC (Bld) 2.7 % Normal [facility] Comment on above: Performed By: #### C BCA, CMP #### [facility] ([id number]) [address] [place] [address] Erythrocyte distribution width (RBC) [Ratio] 18.7 % High 11.5-15.0 [facility] Comment on above: Performed By: #### C BCA, CMP #### [facility] ([id number]) [address] [address] [place] [address] Hematocrit (Bld) [Volume fraction] 31.3 % Low 35-47 [facility] Comment on above: Performed By: #### C BCA, CMP #### [facility] ([id number]) [address] [place] [address] Hemoglobin (Bld) [Mass/Vol] 9.9 g/dL Low 11.7-15.5 [facility] Comment on above: Performed By: #### C BCA, CMP #### [facility] ([id number]) [address] [place] [address] Lymphocytes (Bld) [#/Vol] 2.2 10*3/uL Normal 1.0-3.5 [facility] Comment on above: Performed By: #### C HEATH, CMP #### [facility] ([id number]) [address] [place] [address] Lymphocytes/100 WBC (Bld) 42.4 % Normal [facility] Comment on above: Performed By: #### C HEATH, CMP #### [facility] ([id number]) [address] [place] [address] MCH (RBC) [Entitic mass] 23.2 pg Low 27-34 [facility] Comment on above: Performed By: #### C HEATH, CMP #### [facility] ([id number]) [address] [place] [address] MCHC (RBC) [Mass/Vol] 31.7 g/dL Low 32-36 [facility] Comment on above: Performed By: #### C BCA, CMP #### [facility] ([id number]) [address] [place] [address] MCV (RBC) [Entitic vol] 73 fL Low 80-100 P [facility] Comment on above: Performed By: #### C BCA, CMP #### [facility] ([id number]) [address] [place] [address] Monocytes (Bld) [#/Vol] 0.4 10*3/uL Normal 0-0.9 [facility] Comment on above: Performed By: #### C BCA, CMP #### [facility] ([id number]) [address] [place] [address] Monocytes/100 WBC (Bld) 7.9 % Normal [place] Comment on above: Performed By: #### C BCA, CMP #### [facility] ([id number]) [address] [place] [address] Neutrophils/100 WBC (Bld) 45.9 % Normal [facility] Comment on above: Performed By: #### C BCA, CMP #### [facility] ([id number]) [address] [place] [address] Platelet mean volume (Bld) [Entitic vol] 8.0 fL Normal 7-12 [facility] Comment on above: Performed By: #### C HEATH, CMP #### [facility] ([id number]) [address] [place] [address] Platelets (Bld) [#/Vol] 457 10*3/uL High 150-450 [facility] Comment on above: Performed By: #### C HEATH, CMP #### [facility] ([id number]) [address] [place] [address] RBC COUNT 4.28 X10E12/L Normal 3.80-5.20 [facility] Comment on above: Performed By: #### C BCA, CMP #### [facility] ([id number]) [address] [place] [address] WBC (Bld) [#/Vol] 5.2 10*3/uL Normal 4.0-11.0 [facility] Comment on above: Performed By: #### C BCA, CMP #### [facility] ([id number]) [address] [place] [address] CBC auto differentialon 03-13 Basophils (Bld) [#/Vol] 0.1 10*3/uL [facility] Basophils/100 WBC (Bld) 1.1 % P [facility] Eosinophils (Bld) [#/Vol] 0.1 10*3/uL [facility] Eosinophils/100 WBC (Bld) 2.7 % [facility] Erythrocyte distribution width (RBC) [Ratio] 18.7 % High 11.5 - 15.0 % [facility] Hematocrit (Bld) [Volume fraction] 31.3 % Low 35 - 47 % [facility] Hemoglobin (Bld) [Mass/Vol] 9.9 g/dL Low 11.7 - 15.5 g/dL [facility] Interpretation and review of laboratory results Abnormal [facility] Lymphocytes (Bld) [#/Vol] 2.2 10*3/uL [facility] Lymphocytes/100 WBC (Bld) 42.4 % [facility] MCH (RBC) [Entitic mass] 23.2 pg Low 27 - [address] [facility] MCHC (RBC) [Mass/Vol] 31.7 g/dL Low 32 - 36 g/dL [facility] MCV (RBC) [Entitic vol] 73 fL Low 80 - [address] [facility] Monocytes (Bld) [#/Vol] 0.4 10*3/uL [facility] Monocytes/100 WBC (Bld) 7.9 % P [facility] Neutrophils (Bld) [#/Vol] 2.4 10*3/uL [facility] Neutrophils/100 WBC (Bld) 45.9 % [facility] Platelet mean volume (Bld) [Entitic vol] 8 fL 7 - [address] [facility] Platelets (Bld) [#/Vol] 457 10*3/uL High [facility] RBC (Bld) [#/Vol] 4.28 10*6/uL [facility] WBC corrected for nucl RBC Auto (Bld) [#/Vol] 5.[address] [facility] COMPREHENSIVE METABOLIC PANE Van 03-28-2024 Albumin [Mass/Vol] 4.0 g/dL Normal 3.2-5.3 [facility] Comment on above: Performed By: #### C BCA, CMP #### [facility] ([id number]) [address] [place] [address] ALP [Catalytic activity/Vol] 61 U/L Normal 39-130 [facility] Comment on above: Performed By: #### C BCA, CMP #### [facility] ([id number]) [address] [place] [address] ALT [Catalytic activity/Vol] 12 U/L Normal 0-31 [facility] Comment on above: Performed By: #### C BCA, CMP #### [facility] ([id number]) [address] [place] [address] Anion gap [Moles/Vol] 10 mmol/L Normal 5-[address] [facility] Comment on above: Performed By: #### C BCA, CMP #### [facility] ([id number]) [address] [place] [address] AST [Catalytic activity/Vol] 14 U/L Normal 0-41 [facility] Comment on above: Performed By: #### C BCA, CMP #### [facility] ([id number]) [address] [place] [address] Bilirubin [Mass/Vol] 0.3 mg/dL Normal 0.3-1.2 [facility] Comment on above: Performed By: #### C BCA, CMP #### [facility] ([id number]) [address] [place] [address] Calcium [Mass/Vol] 9.0 mg/dL Normal 8.5-10.5 [facility] Comment on above: Performed By: #### C BCA, CMP #### [facility] ([id number]) [address] [place] [address] Chloride [Moles/Vol] 107 mmol/L Normal 98-109 [facility] Comment on above: Performed By: #### C BCA, CMP #### [facility] ([id number]) [address] [address] [place] [address] CO2 [Moles/Vol] 24 mmol/L Normal 22-32 [facility] Comment on above: Performed By: #### C BCA, CMP #### [facility] ([id number]) [address] [address] [place] [address] Creatinine [Mass/Vol] 0.72 mg/dL Normal 0.40-1.[address] [facility] Comment on above: Result Comment: METH OD TRACEABLE TO IDMS STANDARD Performed By: #### C BCA, CMP #### [facility] ([id number]) [address] [address] [place] [address] eGFR (CKD-EPI) NON-RACE DEPENDENT >90 Normal >59 [facility] Comment on above: Result Comment: Reported eGFR is based on the CKD-EPI 2020 equation that does not use a race coefficient. Performed By: #### C BCA, CMP #### [facility] ([id number]) [address] [address] [place] [address] Glucose [Mass/Vol] 101 mg/dL High 65-99 [facility] Comment on above: Performed By: #### C BCA, CMP #### [facility] ([id number]) [address] [address] [place] [address] Potassium [Moles/Vol] 3.9 mmol/L Normal 3.5-5.[address] [facility] Comment on above: Performed By: #### C BCA, CMP #### [facility] ([id number]) [address] [address] [place] [address] Protein [Mass/Vol] 6.9 g/dL Normal 6.0-8.0 [facility] Comment on above: Performed By: #### C BCA, CMP #### [facility] ([id number]) [address] [place] [address] Sodium [Moles/Vol] 141 mmol/L Normal 134-146 [facility] Comment on above: Performed By: #### C BCA, CMP #### [facility] ([id number]) [address] [place] [address] Urea nitrogen [Mass/Vol] 10 mg/dL Normal 5-23 [facility] Comment on above: Performed By: #### C BCA, CMP #### [facility] ([id number]) [address] [place] [address] Comprehensive metabolic pane van 03-28-2024 Albumin [Mass/Vol] 4 g/dL 3.2 - 5.3 g/dL [facility] ALP [Catalytic activity/Vol] 61 U/L 39 - 130 U/L [facility] ALT No additional P-5'-P [Catalytic activity/Vol] 12 U/L 0 - 31 U/L [facility] Anion gap [Moles/Vol] 10 mmol/L 5 - 15 mmol/L [facility] AST [Catalytic activity/Vol] 14 U/L 0 - 41 U/L [facility] Bilirubin [Mass/Vol] 0.3 mg/dL 0.3 - 1 .2 mg/dL [facility] Calcium [Mass/Vol] 9 mg/dL 8.5 - 10. 5 mg/dL [facility] Chloride [Moles/Vol] 107 mmol/L 98 - 10 9 mmol/L [facility] CO2 [Moles/Vol] 24 mmol/L 22 - 32 mmol/L [facility] Creatinine [Mass/Vol] 0.72 mg/dL 0.40 - 1.00 mg/dL [facility] Comment on above: METHOD TRACEABLE TO IDMD STANDARD eGFR (CKD-EPI)non-race dependent - PINF [facility] Comment on above: Reported eGFR is based on the CKD-EPI 2020 equation that does not use a race coefficient. Glucose [Mass/Vol] 101 mg/dL High 65 - 99 mg/dL [facility] Interpretation and review of laboratory results Abnormal [facility] Potassium [Moles/Vol] 3.9 mmol/L 3.5 - 5.0 mmol/L [facility] Protein [Mass/Vol] 6.9 g/dL 6.0 - 8.0 g/dL [facility] Sodium [Moles/Vol] 141 mmol/L 134 - 146 mmol/L [facility] Urea nitrogen [Mass/Vol] 10 mg/dL 5 - 23 mg/dL [facility] CBC AND AUTO DIFFon 03-07-20 ABSOLUTE BASOPHIL 0.1 X10E9/L Normal 0.0-0.2 [facility] Comment on above: Performed By: #### N UM #### [facility] ([id number]) [address] [place] [address] ABSOLUTE NEUTROPHIL 3.0 X10E9/L Normal 1.5-6.6 [facility] Comment on above: Performed By: #### N UM #### [facility] ([id number]) [address] [place] [address] Basophils/100 WBC (Bld) 1.1 % Normal [facility] Comment on above: Performed By: #### N UM #### [facility] ([id number]) [address] [place] [address] Eosinophils (Bld) [#/Vol] 0.1 10*3/uL Normal 0.0-0.4 [facility] Comment on above: Performed By: #### N UM #### [facility] ([id number]) [address] [place] [address] Eosinophils/100 WBC (Bld) 1.0 % Normal [facility] Comment on above: Performed By: #### N UM #### [facility] ([id number]) [address] [place] [address] Erythrocyte distribution width (RBC) [Ratio] 17.6 % High 11.5-15.0 [facility] Comment on above: Performed By: #### N UM #### [facility] ([id number]) [address] [place] [address] Hematocrit (Bld) [Volume fraction] 34.1 % Low 35-47 [facility] Comment on above: Performed By: #### N UM #### [facility] ([id number]) [address] [place] [address] Hemoglobin (Bld) [Mass/Vol] 10.9 g/dL Low 11.7-15.5 [facility] Comment on above: Performed By: #### N UM #### [facility] ([id number]) [address] [place] [address] Lymphocytes (Bld) [#/Vol] 2.0 10*3/uL Normal 1.0-3.5 [facility] Comment on above: Performed By: #### N UM #### [facility] ([id number]) [address] [place] [address] Lymphocytes/100 WBC (Bld) 36.4 % Normal [facility] Comment on above: Performed By: #### N UM #### [facility] ([id number]) [address] [place] [address] MCH (RBC) [Entitic mass] 22.7 pg Low 27-34 [facility] Comment on above: Performed By: #### N UM #### [facility] ([id number]) [address] [place] [address] MCHC (RBC) [Mass/Vol] 31.8 g/dL Low 32-[address] [facility] Comment on above: Performed By: #### N UM #### [facility] ([id number]) [address] [place] [address] MCV (RBC) [Entitic vol] 71 fL Low 80-100 P [facility] Comment on above: Performed By: #### N UM #### [facility] ([id number]) [address] [place] [address] Monocytes (Bld) [#/Vol] 0.4 10*3/uL Normal 0-0.9 [facility] Comment on above: Performed By: #### N UM #### [facility] ([id number]) [address] [place] [address] Monocytes/100 WBC (Bld) 6.9 % Normal [facility] Comment on above: Performed By: #### N UM #### [facility] ([id number]) [address] [place] [address] Neutrophils/100 WBC (Bld) 54.6 % Normal [facility] Comment on above: Performed By: #### N UM #### [facility] ([id number]) [address] [place] [address] Platelet mean volume (Bld) [Entitic vol] 7.7 fL Normal 7-12 [facility] Comment on above: Performed By: #### N UM #### [facility] ([id number]) [address] [place] [address] Platelets (Bld) [#/Vol] 514 10*3/uL High 150-450 [facility] Comment on above: Performed By: #### N UM #### [facility] ([id number]) [address] [place] [address] RBC COUNT 4.78 X10E12/L Normal 3.80-5.20 [facility] Comment on above: Performed By: #### N UM #### [facility] ([id number]) [address] [place] [address] WBC (Bld) [#/Vol] 5.5 10*3/uL Normal 4.0-11.0 [facility] Comment on above: Performed By: #### N UM #### [facility] ([id number]) [address] [place] [address] COMPREHENSIVE METABOLIC PANE Van 03-07-2024 Albumin [Mass/Vol] 4.5 g/dL Normal 3.2-5.3 [facility] Comment on above: Performed By: #### N UM #### [facility] ([id number]) [address] [place] [address] ALP [Catalytic activity/Vol] 64 U/L Normal 39-130 [facility] Comment on above: Performed By: #### N UM #### [facility] ([id number]) [address] [place] [address] ALT [Catalytic activity/Vol] 18 U/L Normal 0-31 [facility] Comment on above: Performed By: #### N UM #### [facility] ([id number]) [address] [place] [address] Anion gap [Moles/Vol] 8 mmol/L Normal 5-[address] [facility] Comment on above: Performed By: #### N UM #### [facility] ([id number]) [address] [place] [address] AST [Catalytic activity/Vol] 19 U/L Normal 0-41 [facility] Comment on above: Performed By: #### N UM #### [facility] ([id number]) [address] [place] [address] Bilirubin [Mass/Vol] 0.7 mg/dL Normal 0.3-1.2 [facility] Comment on above: Performed By: #### N UM #### [facility] ([id number]) [address] [place] [address], [place] [address] Calcium [Mass/Vol] 9.4 mg/dL Normal 8.5-10.5 [facility] Comment on above: Performed By: #### N UM #### [facility] ([id number]) [address] [place] [address] Chloride [Moles/Vol] 105 mmol/L Normal 98-109 [facility] Comment on above: Performed By: #### N UM #### [facility] ([id number]) [address] [place] [address] CO2 [Moles/Vol] 21 mmol/L Low 22-32 [facility] Comment on above: Performed By: #### N UM #### [facility] ([id number]) [address] [place] [address] Creatinine [Mass/Vol] 0.68 mg/dL Normal 0.40-1.[address] [facility] Comment on above: Result Comment: METH OD TRACEABLE TO IDMS STANDARD Performed By: #### N UM #### [facility] ([id number]) [address] [place] [address] eGFR (CKD-EPI) NON-RACE DEPENDENT >90 Normal >59 [facility] Comment on above: Result Comment: Reported eGFR is based on the CKD-EPI 2020 equation that does not use a race coefficient. Performed By: #### N UM #### [facility] ([id number]) [address] [place] [address] Glucose [Mass/Vol] 107 mg/dL High 65-99 [facility] Comment on above: Performed By: #### N UM #### [facility] ([id number]) [address] [place] [address] Potassium [Moles/Vol] 3.8 mmol/L Normal 3.5-5.[address] [facility] Comment on above: Performed By: #### N UM #### [facility] ([id number]) [address] [place] [address]993 Protein [Mass/Vol] 8.6 g/dL High 6.0-8.0 [facility] Comment on above: Performed By: #### N UM #### [facility] ([id number]) [address] [place] [address] Sodium [Moles/Vol] 134 mmol/L Normal 134-146 [facility] Comment on above: Performed By: #### N UM #### [facility] ([id number]) [address] [place] [address]36 Urea nitrogen [Mass/Vol] 10 mg/dL Normal 5-23 [facility] Comment on above: Performed By: #### N UM #### [facility] ([id number]) [address] [place] [address] [place] [address] HCG ( test) Ql (U)o n 03-07-2024 Beta HCG ( test) Ql (U) Negative Normal NEG [facility] Comment on above: Performed By: #### C BCA, CMP #### [facility] ([id number]) [address] [place] [address] [place] [address] URN MACROSCOPIC NURon 2023 BILIRUBIN AUDREY Negative Normal NEG [facility] Comment on above: Performed By: #### C BCA, CMP #### [facility] ([id number]) [address] [place] [address], [place] [address] BLOOD/HGB AUDREY Trace Abnormal NEG [facility] Comment on above: Performed By: #### C BCA, CMP #### [facility] ([id number]) [address] [place] [address] [place] [address] GLUCOSE AUDREY Negative Normal NEG [facility] Comment on above: Performed By: #### C BCA, CMP #### [facility] ([id number]) [address] [place] [address] [place] [address] KETONES AUDREY Negative Normal NEG [facility] Comment on above: Performed By: #### C BCA, CMP #### [facility] ([id number]) [address] [place] [address] LEUKOCYTE ESTERASE AUDREY Negative Normal NEG [facility] Comment on above: Performed By: #### C BCA, CMP #### [facility] ([id number]) [address] [place] [address] NITRITE AUDREY Negative Normal NEG [facility] Comment on above: Performed By: #### C HEATH, CMP #### [facility] ([id number]) [address] [place] [address] PH AUDREY 6.0 Normal 5.0-8.5 [facility] Comment on above: Performed By: #### C HEATH, CMP #### [facility] ([id number]) [address] [place] [address] PROTEIN AUDREY Negative Normal NEG [facility] Comment on above: Performed By: #### C HEATH, CMP #### [facility] ([id number]) [address] [place] [address] [place] [address] SPECIFIC GRAVITY AUDREY 1.010 Normal 1.003-1.[address] [facility] Comment on above: Performed By: #### C BCA, CMP #### [facility] ([id number]) [address] [place] [address] [place] [address] UROBILINOGEN AUDREY 0.2 eu/dL Normal <1.1 [facility] Comment on above: Performed By: #### C BCA, CMP #### [facility] ([id number]) [address] [place] [address] CBCon 02-24-2024 ABSOLUTE BAS 0.1 10*3/uL Normal 0.0-0.2 [facility] ABSOLUTE EOS 0.2 10*3/uL Normal 0.0-0.7 [facility] ABSOLUTE NEUTROPHIL COUNT 3.2 10*3/uL Normal 1.4-6.5 [facility] Basophils/100 WBC (Bld) 0.7 % Normal 0.0-2.0 [facility] DTYPE AUTO DIFF Normal [facility] Eosinophils/100 WBC (Bld) 2.3 % Normal 0.0-11.0 [facility] Lymphocytes (Bld) [#/Vol] 3.5 10*3/uL High 1.2-3.4 [facility] Lymphocytes/100 WBC (Bld) 47.1 % Normal 20.0-55.0 [facility] Monocytes (Bld) [#/Vol] 0.5 10*3/uL Normal 0.0-0.7 [facility] Monocytes/100 WBC (Bld) 7.4 % Normal 0.0-10.0 [facility] Neutrophils/100 WBC (Bld) 42.5 % Normal 37.0-75.0 [facility] Erythrocyte distribution width (RBC) [Ratio] 17.1 % High 11.5-14.5 [facility] Hematocrit (Bld) [Volume fraction] 33.6 % Low 36.0-48.0 [facility] Hemoglobin (Bld) [Mass/Vol] 10.3 g/dL Low 12.0-16.0 [facility] MCH (RBC) [Entitic mass] 22.7 pg Low 26.0-35.0 [facility] MCHC (RBC) [Mass/Vol] 30.8 g/dL Normal 27.0-37.0 [facility] MCV (RBC) [Entitic vol] 73.5 fL Low 80.0-100.0 [facility] Platelet mean volume (Bld) [Entitic vol] 7.9 fL Normal 7.4-11.0 [facility] Platelets (Bld) [#/Vol] 466 10*3/uL High 130-400 [facility] RBC (Bld) [#/Vol] 4.57 10*6/uL Normal 4.0-5.4 [facility] WBC (Bld) [#/Vol] 7.4 10*3/uL Normal 3.6-11.0 [facility] CBC, EDIF, PLATELETon 2023 ABSOLUTE BASOPHIL COUNT 0.1 10*3/uL 0.0 - 0.2 10*3/uL [facility] Basophils/100 WBC (Bld) 0.7 % 0.0 - 2.0 % [facility] Differential cell count method Nom (Bld) AUTO DIFF % [facility] Eosinophils (Bld) [#/Vol] 0.2 10*3/uL 0.0 - 0.7 10*3/uL [facility] Eosinophils/100 WBC (Bld) 2.3 % 0.0 - 11.0 % [facility] Erythrocyte distribution width (RBC) [Ratio] 17.1 % High 11.5 - 14.5 % [facility] Hematocrit (Bld) [Volume fraction] 33.6 % Low 36.0 - 48.0 % [facility] Hemoglobin (Bld) [Mass/Vol] 10.3 g/dL Low [facility] Interpretation and review of laboratory results Abnormal [facility] Lymphocytes (Bld) [#/Vol] 3.5 10*3/uL High 1.2 - 3.4 10*3/uL [facility] Lymphocytes/100 WBC (Bld) 47.1 % 20.0 - 55.0 % [facility] MCH (RBC) [Entitic mass] 22.7 pg Low 26.0 - 35.0 PG [facility] MCHC (RBC) [Mass/Vol] 30.8 g/dL [facility] MCV (RBC) [Entitic vol] 73.5 fL Low A [facility] Monocytes (Bld) [#/Vol] 0.5 10*3/uL 0.0 - 0.7 10*3/uL [facility] Monocytes/100 WBC (Bld) 7.4 % 0.0 - 10.0 % [facility] Neutrophils (Bld) [#/Vol] 3.2 10*3/uL 1.4 - 6.5 10*3/uL [facility] Neutrophils/100 WBC (Bld) 42.5 % 37.0 - 75.0 % [facility] Platelet mean volume (Bld) [Entitic vol] 7.9 fL [facility] Platelets (Bld) [#/Vol] 466 10*3/uL High 130 - 400 10*3/uL [facility] RBC (Bld) [#/Vol] 4.57 10*6/uL 4.0 - 5.4 10*6/uL [facility] WBC (Bld) [#/Vol] 7.4 10*3/uL 3.6 - 11.0 10*3/uL [facility] CMP FASTINGon 02-24-2024 A:G RATIO 1.1 RATIO Low 1.3-2.2 [facility] ALBUMIN 4.1 G/dl Normal 3.5-5.0 [facility] ALP [Catalytic activity/Vol] 62 U/L Normal 38-126 [facility] ALT [Catalytic activity/Vol] 23 U/L Normal <35 [facility] AST [Catalytic activity/Vol] 45 U/L High 14-36 [facility] Bilirubin [Mass/Vol] 0.3 mg/dL Normal 0.2-1.3 [facility] Calcium [Mass/Vol] 8.8 mg/dL Normal 8.4-10.2 [facility] Chloride [Moles/Vol] 110 mmol/L High 98-107 [facility] Comment on above: Result Comment: Salvador carlson note: Triglyceride levels of 600mg/dL or higher may positively bias chloride results by approximately 2.1 mmol CO2 [Moles/Vol] 23 mmol/L Normal 22-30 [facility] Creatinine [Mass/Vol] 0.80 mg/dL Normal 0.7-1.2 [facility] EST. GFR, 104 ml/min/1.73sq.m [facility] EST. GFR,Non 86 ml/min/1.73sq.m [facility] GFR Information Average GFR for 30-39 years old = 107. Normal [facility] Comment on above: Result Comment: Tool Builder franklin Kidney disease, GFR = <60. Kidney failure, GFR = <15. The GFR estimate is not adjusted for extreme body surface area or acute process, nor has it been validated for women or ethnic groups other than and . Glucose [Mass/Vol] 81 mg/dL Normal 70-100 [facility] Comment on above: Result Comment: NORMAL <100 mg/dL PREDIABETES 101-126 mg/dL DIABETES 126 mg/dL or higher Potassium [Moles/Vol] 3.9 mmol/L Normal 3.5-5.1 [facility] Protein [Mass/Vol] 7.7 g/dL Normal 6.3-8.2 [facility] Sodium [Moles/Vol] 141 mmol/L Normal 137-145 [facility] Urea nitrogen [Mass/Vol] 9 mg/dL Normal 7-20 [facility] COMPREHENSIVE METABOLIC PANE Van 02-24-2024 Albumin [Mass/Vol] 4.1 G/dl 3.5 - 5.0 G/dl [facility] Albumin/Globulin [Mass ratio] 1.1 {ratio} Low [facility] ALP [Catalytic activity/Vol] 62 U/L [facility] ALT [Catalytic activity/Vol] 23 U/L NINF [facility] AST [Catalytic activity/Vol] 45 U/L High [facility] Bilirubin [Mass/Vol] 0.3 mg/dL [facility] Calcium [Mass/Vol] 8.8 mg/dL [facility] Chloride [Moles/Vol] 110 mmol/L High [facility] Comment on above: Please note: Triglyc eride levels of 600mg/dL or higher may positively bias chloride results by approximately 2.1 mmol CO2 [Moles/Vol] 23 mmol/L [facility] Creatinine [Mass/Vol] 0.80 mg/dL [facility] GFR COMMENT Average GFR for 30-39 years old = 107. [facility] Comment on above: Chronic Kidney disea se, GFR = <60. Kidney failure, GFR = <15. The GFR estimate is not adjusted for extreme body surface area or acute process, nor has it been validated for women or ethnic groups other than and . GFR/1.73 sq M.predicted among blacks MDRD (S/P/Bld) [Vol rate/Area] 104 mL/min/{1.73_m2} ml/min/1.73s q.m [facility] GFR/1.73 sq M.predicted among non-blacks MDRD (S/P/Bld) [Vol rate/Area] 86 mL/min/{1.73_m2} ml/min/1.73s q.m [facility] Glucose post fast [Mass/Vol] 81 mg/dL [facility] Comment on above: NORMAL <100 mg/dL PREDIABETES 101-126 mg/dL DIABETES 126 mg/dL or higher Interpretation and review of laboratory results Abnormal [facility] Potassium [Moles/Vol] 3.9 mmol/L [facility] Protein [Mass/Vol] 7.7 g/dL [facility] Sodium [Moles/Vol] 141 mmol/L [facility] Urea nitrogen [Mass/Vol] 9 mg/dL [facility] HCG ( test) Ql (U)o n 02-24-2024 [facility] HCG QUALITATIVE, URINEon HCG ( test) Ql (U) Negative [facility] No Panel Informationon 02-23 Interpretation and review of laboratory results Abnormal [facility] URINALYSIS, MACROon 02-24-20 24 Bilirubin Ql (U) Negative NEGATIVE [facility] Clarity (U) CLEAR CLEAR [facility] Color (U) YELLOW YELLOW [facility] Glucose Test strip (U) [Mass/Vol] Negative NEGATIVE mg/dl [facility] Hemoglobin Ql (U) Negative NEGATIVE [facility] Ketones (U) [Mass/Vol] Negative NEGAT NAYE mg/dl [facility] Leukocyte esterase Test strip Ql (U) MODERATE Abnormal NEGATIVE [facility] Nitrite Ql (U) Negative NEGATIVE [facility] pH (U) 6.0 [pH] 5.0 - 7.0 [facility] Protein Ql (U) Negative NEGATIVE mg/dl [facility] Specific gravity (U) [Rel density] 1.010 1.010 - 1.025 [facility] Urobilinogen (U) [Mass/Vol] 0.2 mg/dL [facility] URINE HCG QUALon 02-24-2024 Beta HCG ( test) Ql (U) Negative Normal [facility] URINE MACROSCOPICon 02-24-20 24 Bilirubin Ql (U) Negative Normal NEGATIVE [facility] Clarity (U) CLEAR Normal CLEAR [facility] Color (U) YELLOW Normal YELLOW [facility] Glucose Ql (U) Negative Normal NEGATIVE [facility] pH (U) 6.0 [pH] Normal 5.0-7.0 [facility] URINE HEMOGLOBIN Negative Normal NEGATIVE [facility] URINE KETONE Negative Normal NEGATIVE [facility] URINE LEUKOTEST MODERATE Abnormal NEGATIVE [facility] URINE NITRATES Negative Normal NEGATIVE [facility] URINE SPEC GRAVITY 1.010 Normal 1.010-1.025 [facility] URINE TOTAL PROTEIN Negative Normal NEGATIVE [facility] Urobilinogen Qn (U) 0.2 {Ivone'U}/dL Normal 0.2-1.0 [facility] URINE MICROSCOPICon 02-24-20 24 Bacteria LM.HPF (Urine sed) [#/Area] TRACE Abnormal NEGATIVE [facility] Casts LM.LPF (Urine sed) [#/Area] NONE NONE /LPF [facility] Crystals LM Nom (Urine sed) NONE NONE [facility] Epithelial cells LM Ql (Urine sed) 5 TO 10 /HPF [facility] Mucus Ql (Urine sed) Negative NEGATIVE [facility] RBC LM.HPF (Urine sed) [#/Area] Negative NEGATIVE /HPF [facility] Urine sediment comments LM Edson (Urine sed) CULTURE CRITERIA NOT MET, NO CULTURE PERFORMED. [facility] WBC LM.HPF (Urine sed) [#/Area] 1 TO 5 NEGATIVE /HPF [facility] BACTERIA TRACE Abnormal NEGATIVE [facility] CASTS NONE Normal NONE [facility] CRYSTAL NONE Normal NONE [facility] Epithelial cells LM Ql (Urine sed) 5 TO 10 Normal [facility] Mucus Ql (Urine sed) Negative Normal NEGATIVE [facility] URINE COMMENT CULTURE CRITERIA NOT MET, NO CULTURE PERFORMED. Normal [facility] URINE RBC'S Negative Normal NEGATIVE [facility] URINE WBC'S 1 TO 5 Normal NEGATIVE [facility] CBCon 02-16-2024 ABSOLUTE BAS 0.1 10*3/uL Normal 0.0-0.2 [facility] ABSOLUTE EOS 0.0 10*3/uL Normal 0.0-0.7 [facility] ABSOLUTE NEUTROPHIL COUNT 2.7 10*3/uL Normal 1.4-6.5 [facility] Basophils/100 WBC (Bld) 1.4 % Normal 0.0-2.0 [facility] DTYPE AUTO DIFF Normal [facility] Eosinophils/100 WBC (Bld) 0.5 % Normal 0.0-11.0 [facility] Lymphocytes (Bld) [#/Vol] 2.1 10*3/uL Normal 1.2-3.4 [facility] Lymphocytes/100 WBC (Bld) 40.3 % Normal 20.0-55.0 [facility] Monocytes (Bld) [#/Vol] 0.3 10*3/uL Normal 0.0-0.7 [facility] Monocytes/100 WBC (Bld) 5.6 % Normal 0.0-10.0 [facility] Neutrophils/100 WBC (Bld) 52.2 % Normal 37.0-75.0 [facility] Erythrocyte distribution width (RBC) [Ratio] 17.0 % High 11.5-14.5 [facility] Hematocrit (Bld) [Volume fraction] 35.2 % Low 36.0-48.0 [facility] Hemoglobin (Bld) [Mass/Vol] 10.9 g/dL Low 12.0-16.0 [facility] MCH (RBC) [Entitic mass] 22.6 pg Low 26.0-35.0 [facility] MCHC (RBC) [Mass/Vol] 30.9 g/dL Normal 27.0-37.0 [facility] MCV (RBC) [Entitic vol] 73.0 fL Low 80.0-100.0 [facility] Platelet mean volume (Bld) [Entitic vol] 7.3 fL Low 7.4-11.0 [facility] Platelets (Bld) [#/Vol] 529 10*3/uL High 130-400 [facility] RBC (Bld) [#/Vol] 4.81 10*6/uL Normal 4.0-5.4 [facility] WBC (Bld) [#/Vol] 5.1 10*3/uL Normal 3.6-11.0 [facility] CBC, EDIF, PLATELETon 2023 ABSOLUTE BASOPHIL COUNT 0.1 10*3/uL 0.0 - 0.2 10*3/uL [facility] Basophils/100 WBC (Bld) 1.4 % 0.0 - 2.0 % [facility] Differential cell count method Nom (Bld) AUTO DIFF % [facility] Eosinophils (Bld) [#/Vol] 0.0 10*3/uL 0.0 - 0.7 10*3/uL [facility] Eosinophils/100 WBC (Bld) 0.5 % 0.0 - 11.0 % [facility] Erythrocyte distribution width (RBC) [Ratio] 17.0 % High 11.5 - 14.5 % [facility] Hematocrit (Bld) [Volume fraction] 35.2 % Low 36.0 - 48.0 % [facility] Hemoglobin (Bld) [Mass/Vol] 10.9 g/dL Low [facility] Interpretation and review of laboratory results Abnormal [facility] Lymphocytes (Bld) [#/Vol] 2.1 10*3/uL 1.2 - 3.4 10*3/uL [facility] Lymphocytes/100 WBC (Bld) 40.3 % 20.0 - 55.0 % [facility] MCH (RBC) [Entitic mass] 22.6 pg Low 26.0 - 35.0 PG [facility] MCHC (RBC) [Mass/Vol] 30.9 g/dL [facility] MCV (RBC) [Entitic vol] 73.0 fL Low A [facility] Monocytes (Bld) [#/Vol] 0.3 10*3/uL 0.0 - 0.7 10*3/uL [facility] Monocytes/100 WBC (Bld) 5.6 % 0.0 - 10.0 % [facility] Neutrophils (Bld) [#/Vol] 2.7 10*3/uL 1.4 - 6.5 10*3/uL [facility] Neutrophils/100 WBC (Bld) 52.2 % 37.0 - 75.0 % [facility] Platelet mean volume (Bld) [Entitic vol] 7.3 fL Low [facility] Platelets (Bld) [#/Vol] 529 10*3/uL High 130 - 400 10*3/uL [facility] RBC (Bld) [#/Vol] 4.81 10*6/uL 4.0 - 5.4 10*6/uL [facility] WBC (Bld) [#/Vol] 5.1 10*3/uL 3.6 - 11.0 10*3/uL [facility] CHEM 7 FASTINGon 02-16-2024 Chloride [Moles/Vol] 109 mmol/L High 98-107 [facility] Comment on above: Result Comment: Salvador carlson note: Triglyceride levels of 600mg/dL or higher may positively bias chloride results by approximately 2.1 mmol CO2 [Moles/Vol] 22 mmol/L Normal 22-30 [facility] Creatinine [Mass/Vol] 0.70 mg/dL Normal 0.7-1.2 [facility] EST. GFR, 121 ml/min/1.73sq.m [facility] EST. GFR,Non 100 ml/min/1.73sq.m [facility] GFR Information Average GFR for 30-39 years old = 107. Normal [facility] Comment on above: Result Comment: Tool Builder franklin Kidney disease, GFR = <60. Kidney failure, GFR = <15. The GFR estimate is not adjusted for extreme body surface area or acute process, nor has it been validated for women or ethnic groups other than and . Glucose [Mass/Vol] 106 mg/dL High 70-100 [facility] Comment on above: Result Comment: NORMAL <100 mg/dL PREDIABETES 101-126 mg/dL DIABETES 126 mg/dL or higher Potassium [Moles/Vol] 3.8 mmol/L Normal 3.5-5.1 [facility] Sodium [Moles/Vol] 139 mmol/L Normal 137-145 [facility] Urea nitrogen [Mass/Vol] 8 mg/dL Normal 7-20 [facility] CHEM 7 (LYTES,BUN,CREA,GLUC) on 02-16-2024 Chloride [Moles/Vol] 109 mmol/L High [facility] Comment on above: Please note: Triglyc eride levels of 600mg/dL or higher may positively bias chloride results by approximately 2.1 mmol CO2 [Moles/Vol] 22 mmol/L [facility] Creatinine [Mass/Vol] 0.70 mg/dL [facility] GFR COMMENT Average GFR for 30-39 years old = 107. [facility] Comment on above: Chronic Kidney disea se, GFR = <60. Kidney failure, GFR = <15. The GFR estimate is not adjusted for extreme body surface area or acute process, nor has it been validated for women or ethnic groups other than and . GFR/1.73 sq M.predicted among blacks MDRD (S/P/Bld) [Vol rate/Area] 121 mL/min/{1.73_m2} ml/min/1.73s q.m [facility] GFR/1.73 sq M.predicted among non-blacks MDRD (S/P/Bld) [Vol rate/Area] 100 mL/min/{1.73_m2} ml/min/1.73s q.m [facility] Glucose post fast [Mass/Vol] 106 mg/dL High [facility] Comment on above: NORMAL <100 mg/dL PREDIABETES 101-126 mg/dL DIABETES 126 mg/dL or higher Potassium [Moles/Vol] 3.8 mmol/L [facility] Sodium [Moles/Vol] 139 mmol/L [facility] Urea nitrogen [Mass/Vol] 8 mg/dL [facility] CT ABDOMEN/PELVIS WITH CONTR Agustín 02-16-2024 CT [...] 3. There is no obstructive uropathy. Normal [facility] CT Abdomen and Pelvis W cont rast Nery 02-16-2024 IMPRESSION: 1. Status post [...] lesion. 3. There is no obstructive uropathy. [facility] Radiology Study observation (narrative) [facility] CT Abdomen and Pelvis W cont rast IVOrdered By: Jadon Ashraf on 02-16-2024 [facility] Work Phone: HCG ( test) Ql (U)o n 02-16-2024 [facility] HCG QUALITATIVE, URINEon HCG ( test) Ql (U) Negative [facility] HEPATIC FUNCTION PANELon Albumin [Mass/Vol] 4.5 g/dL [facility] ALP [Catalytic activity/Vol] 71 U/L [facility] ALT [Catalytic activity/Vol] 24 U/L NINF [facility] AST [Catalytic activity/Vol] 27 U/L [facility] Bilirubin [Mass/Vol] 0.5 mg/dL [facility] Bilirubin.direct [Mass/Vol] 0.5 mg/dL High [facility] Protein [Mass/Vol] 8.2 g/dL [facility] LIPASEon 02-16-2024 Lipase [Catalytic activity/Vol] 127 U/L 23 - 300 U/L [facility] LIPASE,SERUMon 02-16-2024 LIPASE,SERUM 127 U/L Normal 23-300 [facility] LIVER PANELon 02-16-2024 Albumin [Mass/Vol] 4.5 g/dL Normal 3.5-5.0 [facility] ALP [Catalytic activity/Vol] 71 U/L Normal 38-126 [facility] ALT [Catalytic activity/Vol] 24 U/L Normal <35 [facility] AST [Catalytic activity/Vol] 27 U/L Normal 14-36 [facility] Bilirubin [Mass/Vol] 0.5 mg/dL Normal 0.2-1.3 [facility] Bilirubin.indirect [Mass/Vol] 0.5 mg/dL High 0-0.4 [facility] Protein [Mass/Vol] 8.2 g/dL Normal 6.3-8.2 [facility] No Panel Informationon 02-15 Interpretation and review of laboratory results Abnormal [facility] PROTIMEon 02-16-2024 INR Coag (PPP) [Relative time] 0.89 {INR} Normal 0.88-1.14 [facility] Comment on above: Result Comment: 2.0-3.0 THERAPEUTIC RANGE 2.5-3.5 MECHANICAL VALVE RANGE PT Coag (PPP) [Time] 12.2 s Normal 11.8-14.4 [facility] PROTIME-INRon 02-16-2024 INR Coag (PPP) [Relative time] 0.89 {INR} 0.88 - 1.14 [facility] Comment on above: 2.0-3.0 THERAPEUTIC RANGE 2.5-3.5 MECHANICAL VALVE RANGE PT Coag (PPP) [Time] 12.2 s [facility] Portable XR Chest Viewson IMPRESSION: 1. No [...] No free air collections underneath the diaphragms. [facility] Radiology Study observation (narrative) [facility] Portable XR Chest ViewsOrder ed By: Davi Cheng on 02-16-2024 [facility] Work Phone: URINE HCG QUALon 02-16-2024 Beta HCG ( test) Ql (U) Negative Normal [facility] XR CHEST 1 VIEW PORTABLEon 0 02-16-2024 [...] free air collections underneath the diaphragms. Normal [facility] ED Clinical Summaryon 2023 ED Clinical Summary ED Clinical Summary [place] [address] ED Clinical Summary Person Information Name: [facility] Age: 39 Years : 1985 Sex: Female Language: Cymraes PCP: NONE, XXXX Marital Status: Visit Id: [...] 02/13/2024 01:00:19 ADDRESS: [address] [place] [id number] PHYS DOC NOTES: MEDICAL INFORMATION: Prescriptions Given: New Medications [id number], [address] [place], [place] [id number], [phone] amoxicillin-clavulan ate (Augmentin 875 mg-125 mg Tab) [...] Pain Follow up: With: Address: When: Dental: [facility] [phone] In 3 days 02/16/2024 With: Address: When: Dental: [facility] [phone] In 3 days 02/16/2024 With: Address: When: Dental: [facility] [phone] In 3 days 02/16/2024 DIAGNOSIS: Pain, dental Normal [facility] ED Note-Physicianon 02-13-20 ED Note-Physician ED Note-Physician [...] and was given a short prescription for Seymour which she is also taking but states [...] and Complexity of Problems Differential Diagnosis: [] [facility] Data External documents reviewed: N/A My [...] already taking oral Toradol as well as Seymour. We discussed using lidocaine and bupivacaine soaked [...] for 7 day(s), 14 tab(s), Refill(s) 0, [id number], 165.1, cm, 02/13/24 0:28:00 EDT, [...] q12hr Follow-up With When Contact Information Dental: [facility] [phone] In 3 days 02/16/2024 EDT Additional Instructions: Dental: [facility] [phone] In 3 days 02/16/2024 EDT Additional Instructions: Dental: [facility] [phone] In 3 days 02/16/2024 EDT Additional Instructions: [...] Diagnostic Results No qualifying data available. Normal [facility] Comment on above: Result Comment: Elec tronically Signed By: Ritesh Heath DO\.br\Date and Time Signed: 02/13/24 00:51 EDT ED Patient Summaryon 024 ED Patient Summary ED Patient Summary [address] [address] Patient Discharge Instructions Person Information Name: LIVIA NOYOLA Age: 39 Years Arrival Date: 02/13/2024 00:20:34 Discharge Diagnosis: Pain, dental Primary Care Physician: NONE, XXXX Provider Information Primary Provider: Ritesh Heath DO [employer] Legal Secretary:None The exam and treatment you received in the Emergency Department were for an urgent problem and are not intended as complete care. It is important that you follow up with a doctor, nurse practitioner, or physician?s produce assistant for ongoing care. If your symptoms become worse or you do not improve as expected and you are unable to reach your usual health care provider, you should return to the Emergency Department. We are available 24 hours a day. LIVIA NOYOLA has been given the following list of patient education materials, prescriptions and follow-up instructions: Follow-up Instructions: With: Address: When: Dental: [facility] [phone] In 3 days 02/16/2024 With: Address: When: Dental: [facility] [phone] In 3 days 02/16/2024 With: Address: When: Dental: [facility] [phone] In 3 days 02/16/2024 In the event that this physician does not participate in your insurance network, please consult with your insurance company to find a nearby participating provider. Patient Education Materials: Dental Pain A MESSAGE TO ALL PATIENTS REGARDING OPIOIDS PRESCRIPTION OPIOIDS: WHAT YOU NEED TO KNOW Prescription opioids can be used to help relieve mkjiueqs-fu-hsipzh pain and are often prescribed following a [...] care professi (more content not included)... Normal [facility] C REACTIVE PROTEINon 024 CRP [Mass/Vol] mg/L Normal 0.000-0.744 [facility] Comment on above: Performed By: #### C BCA, CMP #### [facility] ([id number]) [address] [place] [address] CBC AND AUTO DIFFon 01-27-20 24 ABSOLUTE BASOPHIL 0.1 X10E9/L Normal 0.0-0.2 [facility] Comment on above: Performed By: #### C BCA, CMP, 3040-3, 89487-0, 1985-10, #### [facility] ([id number]) [address] [place] [address] ABSOLUTE NEUTROPHIL 4.6 X10E9/L Normal 1.5-6.6 [facility] Comment on above: Performed By: #### C BCA, CMP, 0-3, , 1985-10, #### [facility] ([id number]) [address] [place] [address] Basophils/100 WBC (Bld) 1.0 % Normal [facility] Comment on above: Performed By: #### C BCA, CMP, 3040-3, 65158-5, 1985-10, #### [facility] ([id number]) [address] [place] [address] Eosinophils (Bld) [#/Vol] 0.1 10*3/uL Normal 0.0-0.4 [facility] Comment on above: Performed By: #### C BCA, CMP, 3040-3, , 1985-10, #### [facility] ([id number]) [address] [place] [address] Eosinophils/100 WBC (Bld) 1.8 % Normal [facility] Comment on above: Performed By: #### C BCA, CMP, 3040-3, 20570-9, 1985-10, #### [facility] ([id number]) [address] [place] [address] Erythrocyte distribution width (RBC) [Ratio] 17.1 % High 11.5-15.0 [facility] Comment on above: Performed By: #### C STEVE JOE, 3039-3, , 1985-10, #### [facility] ([id number]) [address] [place] [address] Hematocrit (Bld) [Volume fraction] 34.8 % Low 35-47 [facility] Comment on above: Performed By: #### C STEVE JOE, 3039-3, , 1985-10, #### [facility] ([id number]) [address] [place] [address] Hemoglobin (Bld) [Mass/Vol] 10.9 g/dL Low 11.7-15.5 [facility] Comment on above: Performed By: #### Leila JOE CMP, 3, , 1985-10, #### [facility] ([id number]) [address] [place] [address] Lymphocytes (Bld) [#/Vol] 1.9 10*3/uL Normal 1.0-3.5 [facility] Comment on above: Performed By: #### Leila JOE CMP, 3, , 1987-10, #### [facility] ([id number]) [address] [place] [address] 75167 Lymphocytes/100 WBC (Bld) 26.4 % Normal [facility] Comment on above: Performed By: #### Leila JOE, CMP, 0-3, , 1987-10, #### [facility] ([id number]) [address] [place] [address] 37430 MCH (RBC) [Entitic mass] 22.7 pg Low 27-34 [facility] Comment on above: Performed By: #### C BCA, CMP, 3039-3, , 1987-10, #### [facility] ([id number]) [address] [place] [address] 16918 MCHC (RBC) [Mass/Vol] 31.3 g/dL Low 32-[address] [facility] Comment on above: Performed By: #### Leila BCA, CMP, 3039-, , 1987-10, #### [facility] ([id number]) [address] [place] [address] 96544 MCV (RBC) [Entitic vol] 72 fL Low 80-100 [facility] Comment on above: Performed By: #### Leila BCA, CMP, 3039-, , 1987-10, #### [facility] ([id number]) [address] [place] [address] 49711 Monocytes (Bld) [#/Vol] 0.4 10*3/uL Normal 0-0.9 [facility] Comment on above: Performed By: #### Leila BCA, CMP, 3039-, , 1987-10, #### [facility] ([id number]) [address] [place] [address] 92157 Monocytes/100 WBC (Bld) 5.8 % Normal [facility] Comment on above: Performed By: #### C BCA, CMP, 3039-, , 1987-10, #### [facility] ([id number]) [address] [place] [address] 84341 Neutrophils/100 WBC (Bld) 65.0 % Normal [facility] Comment on above: Performed By: #### Leila BCA, CMP, 3039-3, , 1987-10, #### [facility] ([id number]) [address] [place] [address] 91650 Platelet mean volume (Bld) [Entitic vol] 7.6 fL Normal 7-12 [facility] Comment on above: Performed By: #### C HEATH, CMP, 3040-3, 61288-7, 1987-10, #### [facility] ([id number]) [address] [place] [address] 79225 Platelets (Bld) [#/Vol] 532 10*3/uL High 150-450 [facility] Comment on above: Performed By: #### C HEATH, CMP, 3040-3, 04965-4, 1987-10, #### [facility] ([id number]) [address] [place] [address] 24506 RBC COUNT 4.80 X10E12/L Normal 3.80-5.20 [facility] Comment on above: Performed By: #### C HEATH, [facility], 3040-3, 43772-3, 1987-10, #### [facility] ([id number]) [address] [place] [address] 64310 WBC (Bld) [#/Vol] 7.0 10*3/uL Normal 4.0-11.0 [facility] Comment on above: Performed By: #### C HEATH, [facility], 3040-3, 56014-7, 1987-10, #### [facility] ([id number]) [address] [place] [address] 13307 CHLAMYDIA/GC BY PCRon 2023 CHLAMYDIA/GC BY PCR [...] on adequate specimen collection. Normal [facility] Comment on above: Performed By: #### C BCA, CMP #### [facility] ([id number]) [address] [place] [address] 64380 COMPREHENSIVE METABOLIC PANE Van 01-27-2024 Albumin [Mass/Vol] 4.3 g/dL Normal 3.2-5.3 [facility] Comment on above: Performed By: #### C BCA, CMP, 3040-3, 11465-6, 1987-10, #### [facility] ([id number]) [address] [place] [address] 93597 ALP [Catalytic activity/Vol] 76 U/L Normal 39-130 [facility] Comment on above: Performed By: #### C BCA, CMP, 3040-3, 82561-3, 1987-10, #### [facility] ([id number]) [address] [place] [address] 25741 ALT [Catalytic activity/Vol] 28 U/L Normal 0-31 [facility] Comment on above: Performed By: #### C BCA, CMP, 3040-3, 19614-9, 1987-10, #### [facility] ([id number]) [address] [place] [address] 44494 Anion gap [Moles/Vol] 7 mmol/L Normal 5-[address] [facility] Comment on above: Performed By: #### C BCA, CMP, 3040-3, 99396-5, 1987-10, #### [facility] ([id number]) [address] [place] [address] 87058 AST [Catalytic activity/Vol] 20 U/L Normal 0-41 [facility] Comment on above: Performed By: #### C BCA, CMP, 3040-3, 31217-7, 1987-10, #### [facility] ([id number]) [address] [place] [address] 21017 Bilirubin [Mass/Vol] 1.0 mg/dL Normal 0.3-1.2 [facility] Comment on above: Performed By: #### C BCA, CMP, 3040-3, 41733-1, 1987-10, #### [facility] ([id number]) [address] [place] [address] 64791 Calcium [Mass/Vol] 9.0 mg/dL Normal 8.5-10.5 [facility] Comment on above: Performed By: #### C BCA, CMP, 3040-3, , 1987-10, #### [facility] ([id number]) [address] [place] [address] 14301 Chloride [Moles/Vol] 102 mmol/L Normal 98-109 [facility] Comment on above: Performed By: #### C BCA, CMP, 0-3, , 1987-10, #### [facility] ([id number]) [address] [place] [address] 38406 CO2 [Moles/Vol] 22 mmol/L Normal 22-32 [facility] Comment on above: Performed By: #### C BCA, CMP, 3040-3, , 1987-10, #### [facility] ([id number]) [address] [place] [address] 41738 Creatinine [Mass/Vol] 0.76 mg/dL Normal 0.40-1.[address] [facility] Comment on above: Result Comment: METH OD TRACEABLE TO IDMS STANDARD Performed By: #### C BCA, CMP, 3040-3, 04175-4, 1987-10, #### [facility] ([id number]) [address] [place] [address] 50413 eGFR (CKD-EPI) NON-RACE DEPENDENT >90 Normal >59 [facility] Comment on above: Result Comment: Reported eGFR is based on the CKD-EPI 2020 equation that does not use a race coefficient. Performed By: #### C HEATH, CMP, 3040-3, 28995-3, 1987-10, #### [facility] ([id number]) [address] [place] [address] 09673 Glucose [Mass/Vol] 109 mg/dL High 65-99 [facility] Comment on above: Performed By: #### C BCA, CMP, 3040-3, 99466-4, 1987-10, #### [facility] ([id number]) [address] [place] [address] 94135 Potassium [Moles/Vol] 4.1 mmol/L Normal 3.5-5.[address] [facility] Comment on above: Performed By: #### C HEATH, CMP, 0-3, , 1987-10, #### [facility] ([id number]) [address] [place] [address] 51065 Protein [Mass/Vol] 8.2 g/dL High 6.0-8.0 [facility] Comment on above: Performed By: #### C HEATH, CMP, 3040-3, , 1987-10, #### [facility] ([id number]) [address] [place] [address] 17861 Sodium [Moles/Vol] 131 mmol/L Low 134-146 [facility] Comment on above: Performed By: #### C BCA, CMP, 3040-3, 14482-2, 1987-10, #### [facility] ([id number]) [address] [place] [address] 90666 Urea nitrogen [Mass/Vol] 6 mg/dL Normal 5-23 [facility] Comment on above: Performed By: #### C BCA, CMP, 3040-3, 50324-8, 1987-10, 91771-8 #### [facility] ([id number]) [address] [place] [address] 27406 HCG ( test) Ql (U)o n 01-27-2024 Beta HCG ( test) Ql (U) Negative Normal NEG [facility] Comment on above: Performed By: #### 2 106-3 #### [facility] ([id number]) [address] [place] [address] 34083 LIPASEon 01-27-2024 Lipase [Catalytic activity/Vol] 33 U/L Normal 17-40 [facility] Comment on above: Performed By: #### C HEATH, CMP #### [facility] ([id number]) [address] [place] [address] 87524 Lactate (P arely) [Moles/Vol]o n 01-27-2024 LACTATE W/REFLEX 1.5 mmol/L Normal 0.4-2.0 [facility] Comment on above: Result Comment: Result did not trigger repeat Lactate, re-order if needed. Performed By: #### C HEATH, CMP #### [facility] ([id number]) [address] [place] [address] 22931 MAGNESIUMon 01-27-2024 Magnesium [Mass/Vol] 2.0 mg/dL Normal 1.8-2.6 [facility] Comment on above: Performed By: #### C HEATH, CMP #### [facility] ([id number]) [address] [place] [address] 39552 URINE CULTUREon 01-27-2024 Bacteria identified Cx Nom (U) CULTURE RESULTS <10,000 ORGANISMS/ML NORMAL URO GENITAL RASHID Normal [facility] Comment on above: Performed By: #### C HEATH, CMP #### [facility] ([id number]) [address] [place] [address] 59386 URN MACROSCOPIC NURon 2023 BILIRUBIN AUDREY Negative Normal NEG [facility] Comment on above: Performed By: #### N UM #### [facility] ([id number]) [address] [place] [address] [place] [address] BLOOD/HGB AUDREY Negative Normal NEG [facility] Comment on above: Performed By: #### N UM #### [facility] ([id number]) [address] [place] [address] [place] [address] GLUCOSE AUDREY Negative Normal NEG [facility] Comment on above: Performed By: #### N UM #### [facility] ([id number]) [address] [place] [address] [place] [address] KETONES AUDREY Negative Normal NEG [facility] Comment on above: Performed By: #### N UM #### [facility] ([id number]) [address] [place] [address] [place] [address] LEUKOCYTE ESTERASE AUDREY Negative Normal NEG [facility] Comment on above: Performed By: #### N UM #### [facility] ([id number]) [address] [place] [address] [place] [address] NITRITE AUDREY Negative Normal NEG [facility] Comment on above: Performed By: #### N UM #### [facility] ([id number]) [address] [place] [address] [place] [address] PH AUDREY 8.5 Normal 5.0-8.5 [facility] Comment on above: Performed By: #### N UM #### [facility] ([id number]) [address] [place] [address] [place] [address] PROTEIN AUDREY Negative Normal NEG [facility] Comment on above: Performed By: #### N UM #### [facility] ([id number]) [address] [place] [address] [place] [address] SPECIFIC GRAVITY AUDREY 1.015 Normal 1.003-1.[address] [facility] Comment on above: Performed By: #### N UM #### [facility] ([id number]) [address] [facility], [place] [address] UROBILINOGEN AUDREY 0.2 eu/dL Normal <1.1 [facility] Comment on above: Performed By: #### N UM #### [facility] ([id number]) [address] [facility], [place] [address] [place] PELVIC WITH TRANSVAGINAL AND DUPLEXon 01-27-2024 [...] on 01/27/2024 2:39 PM Normal [facility] VAGINITIS PANEL PCRon 2023 VAGINITIS PANEL PCR [...] clinical presentation to determine patient diagnosis. Normal [facility] Comment on above: Performed By: #### C BCA, CMP #### [facility] ([id number]) [address] [place] [address], [place] [address] CT sinus wo conon 11-25-2023 CT sinus wo con [facility] [place] [address] CT Scan Report Signed Patient: Livia Noyola MR#: [id number] [id number] : 1985 Acct:[id number] Age/Sex: 38 / F ADM Date: 11/25/23 Loc: CT Room: Type: [facility] Attending Dr: Jennifer Duran DO Copies [...] Davi Figueroa M.D.11/25/2023 4:01 PM Dictation Location: [place] [address] Transcribed By: [facility] 11/25/23 1601 Dictated By: Davi Figueroa DO 11/25/23 1559 Signed By: 11/25/23 1601 Normal [facility] CBC AND AUTO DIFFon 10-25-19 ABSOLUTE BASOPHIL 0.1 X10E9/L Normal 0.0-0.2 [facility] Comment on above: Performed By: #### C BCA, CMP #### [facility] ([id number]) [address] [place] [address] 03600 ABSOLUTE NEUTROPHIL 4.1 X10E9/L Normal 1.5-6.6 [facility] Comment on above: Performed By: #### C BCA, CMP #### [facility] ([id number]) [address] [place] [address] 50305 Basophils/100 WBC (Bld) 0.9 % Normal [facility] Comment on above: Performed By: #### C BCA, CMP #### [facility] ([id number]) [address] [place] [address] 20925 Eosinophils (Bld) [#/Vol] 0.0 10*3/uL Normal 0.0-0.4 [facility] Comment on above: Performed By: #### C BCA, CMP #### [facility] ([id number]) [address] [place] [address] 57059 Eosinophils/100 WBC (Bld) 0.1 % Normal [facility] Comment on above: Performed By: #### C BCA, CMP #### [facility] ([id number]) [address] [place] [address], [place] [address] Erythrocyte distribution width (RBC) [Ratio] 17.9 % High 11.5-15.0 [facility] Comment on above: Performed By: #### C HEATH, CMP #### [facility] ([id number]) [address] [place] [address] 92582 Hematocrit (Bld) [Volume fraction] 34.6 % Low 35-47 [facility] Comment on above: Performed By: #### C HEATH, CMP #### [facility] ([id number]) [address] [place] [address] 39923 Hemoglobin (Bld) [Mass/Vol] 11.1 g/dL Low 11.7-15.5 [facility] Comment on above: Performed By: #### C HEATH, CMP #### [facility] ([id number]) [address] [place] [address] 14306 Lymphocytes (Bld) [#/Vol] 1.5 10*3/uL Normal 1.0-3.5 [facility] Comment on above: Performed By: #### C HEATH, CMP #### [facility] ([id number]) [address] [place] [address] 50860 Lymphocytes/100 WBC (Bld) 25.6 % Normal [facility] Comment on above: Performed By: #### C HEATH, CMP #### [facility] ([id number]) [address] [place] [address] 64767 MCH (RBC) [Entitic mass] 23.1 pg Low 27-34 [facility] Comment on above: Performed By: #### C HEATH, CMP #### [facility] ([id number]) [address] [place] [address] 78793 MCHC (RBC) [Mass/Vol] 32.1 g/dL Normal 32-[address] [facility] Comment on above: Performed By: #### C HEATH, CMP #### [facility] ([id number]) [address] [place] [address] 47819 MCV (RBC) [Entitic vol] 72 fL Low 80-100 [facility] Comment on above: Performed By: #### C BCA, CMP #### [facility] ([id number]) [address] [place] [address] 85163 Monocytes (Bld) [#/Vol] 0.3 10*3/uL Normal 0-0.9 [facility] Comment on above: Performed By: #### C BCA, CMP #### [facility] ([id number]) [address] [place] [address] 41437 Monocytes/100 WBC (Bld) 5.3 % Normal [facility] Comment on above: Performed By: #### C HEATH, CMP #### [facility] ([id number]) [address] [place] [address] 97713 Neutrophils/100 WBC (Bld) 68.1 % Normal [facility] Comment on above: Performed By: #### C HEATH, CMP #### [facility] ([id number]) [address] [place] [address] 56970 Platelet mean volume (Bld) [Entitic vol] 7.7 fL Normal 7-12 [facility] Comment on above: Performed By: #### C HEATH, CMP #### [facility] ([id number]) [address] [place] [address] 02156 Platelets (Bld) [#/Vol] 532 10*3/uL High 150-450 [facility] Comment on above: Performed By: #### C BCA, CMP #### [facility] ([id number]) [address] [place] [address] 90788 RBC COUNT 4.82 X10E12/L Normal 3.80-5.20 [facility] Comment on above: Performed By: #### C BCA, CMP #### [facility] ([id number]) [address] [place] [address] 29887 WBC (Bld) [#/Vol] 6.0 10*3/uL Normal 4.0-11.0 [facility] Comment on above: Performed By: #### C BCA, CMP #### [facility] ([id number]) [address] [place] [address] [place] [address] COMPREHENSIVE METABOLIC PANE [facility] 10-25-2023 Albumin [Mass/Vol] 4.7 g/dL Normal 3.2-5.3 [facility] Comment on above: Performed By: #### C BCA, CMP #### [facility] ([id number]) [address] [place] [address] 99058 ALP [Catalytic activity/Vol] 67 U/L Normal 39-130 [facility] Comment on above: Performed By: #### C BCA, CMP #### [facility] ([id number]) [address] [place] [address] 90321 ALT [Catalytic activity/Vol] 23 U/L Normal 0-31 [facility] Comment on above: Performed By: #### C BCA, CMP #### [facility] ([id number]) [address] [place] [address] 15634 Anion gap [Moles/Vol] 11 mmol/L Normal 5-[address] [facility] Comment on above: Performed By: #### C BCA, CMP #### [facility] ([id number]) [address] [place] [address] 30736 AST [Catalytic activity/Vol] 20 U/L Normal 0-41 [facility] Comment on above: Performed By: #### C BCA, CMP #### [facility] ([id number]) [address] [place] [address] 59122 Bilirubin [Mass/Vol] 1.0 mg/dL Normal 0.3-1.2 [facility] Comment on above: Performed By: #### C BCA, CMP #### [facility] ([id number]) [address] [place] [address] 44819 Calcium [Mass/Vol] 9.6 mg/dL Normal 8.5-10.5 [facility] Comment on above: Performed By: #### C BCA, CMP #### [facility] ([id number]) [address] [place] [address] 79917 Chloride [Moles/Vol] 106 mmol/L Normal 98-109 [facility] Comment on above: Performed By: #### C BCA, CMP #### [facility] ([id number]) [address] [place] [address] 09322 CO2 [Moles/Vol] 20 mmol/L Low 22-32 [facility] Comment on above: Performed By: #### C BCA, CMP #### [facility] ([id number]) [address] [place] [address] 99146 Creatinine [Mass/Vol] 0.59 mg/dL Normal 0.40-1.[address] [facility] Comment on above: Result Comment: METH OD TRACEABLE TO IDMS STANDARD Performed By: #### C BCA, CMP #### [facility] ([id number]) [address] [place] [address] 38912 eGFR (CKD-EPI) NON-RACE DEPENDENT >90 Normal >59 [facility] Comment on above: Result Comment: Reported eGFR is based on the CKD-EPI 2020 equation that does not use a race coefficient. Performed By: #### C BCA, CMP #### [facility] ([id number]) [address] [place] [address] 96607 Glucose [Mass/Vol] 124 mg/dL High 65-99 [facility] Comment on above: Performed By: #### C BCA, CMP #### [facility] ([id number]) [address] [place] [address] Potassium [Moles/Vol] 3.5 mmol/L Normal 3.5-5.[address] [facility] Comment on above: Performed By: #### C BCA, CMP #### [facility] ([id number]) [address] [place] [address] 79366 Protein [Mass/Vol] 8.7 g/dL High 6.0-8.0 [facility] Comment on above: Performed By: #### C BCA, CMP #### [facility] ([id number]) [address] [place] [address] 04770 Sodium [Moles/Vol] 137 mmol/L Normal 134-146 [facility] Comment on above: Performed By: #### C BCA, CMP #### [facility] ([id number]) [address] [place] [address] 61508 Urea nitrogen [Mass/Vol] 6 mg/dL Normal 5-23 [facility] Comment on above: Performed By: #### C BCA, CMP #### [facility] ([id number]) [address] [place] [address] ABDOMEN AND PELVIS W CONT on [...] on 10/25/2023 7:39 PM Normal [facility] HCG ( test) Ql (U)o n 10-25-2023 Beta HCG ( test) Ql (U) Negative Normal NEG [facility] Comment on above: Performed By: #### 2 106-3 #### [facility] ([id number]) [address] [place] [address] 17373 URN MACROSCOPIC NURon 2023 BILIRUBIN AUDREY Negative Normal NEG [facility] Comment on above: Performed By: #### N UM #### [facility] ([id number]) [address] [place] [address] 06393 BLOOD/HGB AUDREY Negative Normal NEG [facility] Comment on above: Performed By: #### N UM #### [facility] ([id number]) [address] [place] [address] 40290 GLUCOSE AUDREY Negative Normal NEG [facility] Comment on above: Performed By: #### N UM #### [facility] ([id number]) [address] [place] [address] 07035 KETONES AUDREY 15 mg/dL Abnormal NEG [facility] Comment on above: Performed By: #### N UM #### [facility] ([id number]) [address] [place] [address] 84546 LEUKOCYTE ESTERASE AUDREY Trace Abnormal NEG [facility] Comment on above: Performed By: #### N UM #### [facility] ([id number]) [address] [place] [address] 79747 NITRITE AUDREY Negative Normal NEG [facility] Comment on above: Performed By: #### N UM #### [facility] ([id number]) [address] [place] [address] 73692 PH AUDREY 7.0 Normal 5.0-8.5 [facility] Comment on above: Performed By: #### N UM #### [facility] ([id number]) [address] [place] [address] 66953 PROTEIN AUDREY Negative Normal NEG [facility] Comment on above: Performed By: #### N UM #### [facility] ([id number]) [address] [place] [address] 77489 SPECIFIC GRAVITY AUDREY 1.020 Normal 1.003-1.[address] [facility] Comment on above: Performed By: #### N UM #### [facility] ([id number]) [address] [place] [address] 76288 UROBILINOGEN AUDREY 1.0 eu/dL Normal <1.1 [facility] Comment on above: Performed By: #### N UM #### [facility] ([id number]) [address] [place] [address] 29787 [place] PELVIC WITH TRANSVAGINAL AND DUPLEXon 10-25-2023 [...] on 10/25/2023 6:17 PM Normal [facility] C Urineon 10-02-2023 Bacteria identified Cx Nom [...] Locations R1: This test was performed at: [facility], [address] [place] [address], [address]- , [place], Normal [facility] Comment on above: Performed By: #### 2 [id number], [id number], [id number], [id number], [id number] #### [facility] [address] [place] [address] 47294 BMPon 09-30-2023 Anion gap [Moles/Vol] 13 mmol/L Normal 6-16 [facility] Comment on above: Performed By: #### 2 [id number], [id number], 0135877, [id number], [id number] ####[facility] [id number] [place] [address] Calcium [Mass/Vol] 9.1 mg/dL Normal 8.9-11.1 [facility] Comment on above: Performed By: #### 2 [id number], [id number], [id number], [id number], [id number] ####[facility] [id number] [facility] [place] [address] Chloride [Moles/Vol] 105 mmol/L Normal 101-111 [facility] Comment on above: Performed By: #### 2 715578, 0379017, [id number], [id number], [id number] ####[facility] [address] [place] [address] CO2 [Moles/Vol] 23 mmol/L Normal 21-31 [facility] Comment on above: Performed By: #### 2 475811, 0570695, 9615478, [id number], [id number] ####[facility] [id number] [facility] [place] [address] Creatinine [Mass/Vol] 0.8 mg/dL Normal 0.5-1.3 [facility] Comment on above: Performed By: #### 2 572997, 9318897, 3027312, [id number], [id number] ####[facility] [address] [facility] [place] [address] Glucose [Mass/Vol] 95 mg/dL Normal 55-199 [facility] Comment on above: Performed By: #### 2 293494, 9342788, 9702906, 14238731, [id number] ####[facility] [address] [place] [address] Potassium [Moles/Vol] 3.1 mmol/L Low 3.5-5.3 [facility] Comment on above: Performed By: #### 2 735323, 7248506, 2873147, [id number], 0072211 ####[facility] [address] [place] [address] Sodium [Moles/Vol] 138 mmol/L Normal 135-145 [facility] Comment on above: Performed By: #### 2 252102, 7145739, 0962551, [id number], [id number] ####[facility] [address] [place] [address] Urea nitrogen [Mass/Vol] 7 mg/dL Normal 5-21 [facility] Comment on above: Performed By: #### 2 737611, 1910356, 5377458, [id number], 0646416 ####[facility] [address] [place] [address] Urea nitrogen/Creatinine [Mass ratio] 9 No Units Low 10-20 [facility] Comment on above: Performed By: #### 2 199627, 1528800, 3684233, 13705280, 8608631 ####[facility] [address] [place] [address] CBC w/ Auto Diffon 4 Basophils/100 WBC (Bld) 0.3 % Normal 0.0-2.0 F [facility] Comment on above: Performed By: #### 2 973855, 3351148, 1325775, 27194643, 6759398 ####[address] [address] Basophils/Leukocytes Auto (Bld) [Pure # fraction] 0.0 E9/L Normal 0.0-0.2 [facility] Comment on above: Performed By: #### 2 355676, 5627240, 8818532, 97870992, 4883125 ####[address] [address] Eosinophils (Bld) [#/Vol] 0.0 E9/L Normal 0.0-0.5 [facility] Comment on above: Performed By: #### 2 193804, 3788686, 6301592, 52088890, 0921282 ####[address] [address] Eosinophils/100 WBC (Bld) 0.4 % Normal 0.0-8.0 [facility] Comment on above: Performed By: #### 2 807570, 7769896, 4735751, 51803229, 4716792 ####[facility] [address] [place] [address] Erythrocyte distribution width (RBC) [Ratio] 18.3 % High 10.9-14.2 [facility] Comment on above: Performed By: #### 2 540978, 9384257, 3482458, 32617546, 9454921 ####[address] [place] [address] Hematocrit (Bld) [Volume fraction] 32.6 % Low 34.0-46.0 [facility] Comment on above: Performed By: #### 2 846412, 5973468, 4219638, 89778389, 7080544 ####[address] [address] Hemoglobin (Bld) [Mass/Vol] 10.3 g/dL Low 12.0-16.0 [facility] Comment on above: Performed By: #### 2 118305, 7792469, 9722638, 66176846, 1876774 ####[address] [address] Lymphocytes (Bld) [#/Vol] 4.1 E9/L High 1.0-4.0 [facility] Comment on above: Performed By: #### 2 959084, 0728730, 3050745, 46387871, 6253947 ####[address] [place] [address] Lymphocytes/100 WBC (Bld) 39.5 % Normal 14.0-50.0 [facility] Comment on above: Performed By: #### 2 452807, 4344505, 6861549, 42921488, 5951639 ####[address] [address] MCH (RBC) [Entitic mass] 23.7 pg Low 27.0-34.0 [facility] Comment on above: Performed By: #### 2 317069, 5990269, 5376334, 59353970, 6096420 ####[facility] [address] [place] [address] MCHC (RBC) [Mass/Vol] 31.7 g/dL Normal 31.4-36.0 [facility] Comment on above: Performed By: #### 2 106209, 7062683, 0515860, 42663557, 8668140 ####[address] [address] MCV (RBC) [Entitic vol] 74.9 fL Low 80.0-100.0 F [facility] Comment on above: Performed By: #### 2 403495, 4485305, 9014161, 87286215, 2341387 ####[place] [address] Monocytes (Bld) [#/Vol] 0.7 E9/L Normal 0.2-1.0 F [facility] Comment on above: Performed By: #### 2 631732, 6987549, 2031671, 71232567, 5134978 ####[address] [address] Neutrophils (Bld) [#/Vol] 5.4 E9/L Normal 2.0-7.5 [facility] Comment on above: Performed By: #### 2 563188, 8350077, 1827881, 72406643, 8439930 ####[address] [address] Neutrophils/100 WBC (Bld) 53.1 % Normal 36.0-75.0 [facility] Comment on above: Performed By: #### 2 742225, 5913549, 3035758, 67555677, 4869814 ####[address] [address] Platelet 476.0 E9/L Normal 150.0-500.0 [facility] Comment on above: Performed By: #### 2 279375, 1955447, 2342478, 94395593, 0829509 ####[facility] [address] [place] [address] Platelet mean volume (Bld) [Entitic vol] 7.7 fL Normal 6.4-10.8 [facility] Comment on above: Performed By: #### 2 479630, 7422806, 0940895, 29078533, 1959305 ####[facility] [address] [place] [address] RBC (Bld) [#/Vol] 4.3 E12/L Normal 4.3-5.9 [facility] Comment on above: Performed By: #### 2 555775, 8667298, 4206451, 01212445, 7841712 ####[facility] [address] [place] [address] WBC corrected for nucl RBC Auto (Bld) [#/Vol] 10.3 E9/L Normal 4.0-11.0 [facility] Comment on above: Performed By: #### 2 057063, 3188594, 6865656, 45738083, 7656011 ####[facility] [address] [place] [address] CHEMISTRYOrdered By: SYSTEM SYSTEM on 09-30-2023 Albumin [...] Chem Discharge Instructionson Discharge Instructions [id number] 6#1.00TIFF Normal [facility] ED Clinical Summaryon 2023 ED Clinical Summary [address] [address] ED Clinical Summary Person Information Name: LIVIA NOYOLA/Michelle Age: 38 Years : 1985 Sex: Female Language: Cymraes PCP: NONE, XXXX Marital Status: Visit Id: [...] 09/30/2023 02:15:05 ADDRESS: [address] [place] [id number] PHYS DOC NOTES: MEDICAL INFORMATION: Prescriptions Given: [...] Follow up: With: Address: When: Ino Royal [address] [place] [address], [place] [address], [place] [address] [facility] (0) In 3 days 10/03/2023 DIAGNOSIS: AP (abdominal pain); Ovarian cyst Normal [facility] ED Note-Physicianon 09-30-19 ED Note-Physician Basic Information [...] taking oral tramadol, Toradol, Bentyl, and a Seymour at home and has had no significant relief. She does have some nausea but no vomiting. No change in bowel movements. No urinary symptoms. She reports that she has had multiple ovarian cysts and did schedule a [facility] appointment for possible hysterectomy but that is [...] and Complexity of Problems Differential Diagnosis: [] [facility] Data External documents reviewed: N/A My [...] of 3.1 but is otherwise overall reassuring. 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 Royal and another [facility] ST[facility]ER in the area to see if he [...] mg/2 mL (more content not included)... Normal [facility] Comment on above: Result Comment: Teddy clarke Signed By: Ritesh Heath DO\.br\Date and Time [...] Follow these instructions at home: ? Take brfr-vlw-jrlimnj and prescription medicines only as told by [...] Reviewed: 11/06/2020 Elsevier Patient Education ? 2022 [employer] Normal [facility] ED Patient Summaryon 024 ED Patient Summary [place] [id number] Patient Discharge Instructions Person Information Name: LIVIA NOYOLA Age: 38 Years Arrival Date: 09/29/2023 23:38:37 Discharge Diagnosis: AP (abdominal pain); Ovarian cyst Primary Care Physician: NONE, XXXX Provider Information Primary Provider: Ritesh Heath DO [employer] Legal Secretary:Shazia The exam and treatment you received in the Emergency Department were for an urgent problem and are not intended as complete care. It is important that you follow up with a doctor, nurse practitioner, or physician?s produce assistant for ongoing care. If your symptoms [...] Follow-up Instructions: With: Address: When: Ino Royal [address] [place] [address], [place] [id number] [facility] (1) In 3 days 10/03/2023 In the event that this physician does not participate in your insurance network, please consult with your insurance company to find a nearby participating provider. Patient Education Materials: Ovarian Cyst A MESSAGE TO ALL PATIENTS REGARDING OPIOIDS PRESCRIPTION OPIOIDS: WHAT YOU NEED TO KNOW Prescription opioids can be used to help relieve jhowwewf-ej-nwabzn pain and are often prescribed following a [...] be struggling with addiction, tell your health adult care manager and ask for guidance or call [employer]?S National Helpline at 2-238-598-HELP. v Source: [place] Department o (more content not included)... Normal [facility] HEMATOLOGYOrdered By: SYSTEM SYSTEM on 09-30-2023 Basophils/100 [...] [Mass/Vol] 4.4 g/dL Normal 3.3-5.0 [facility] Comment on above: Performed By: #### 2 257664, 3225917, 9429284, 62334055, 2309952 ####[facility] [address] [place] [address] Albumin/Globulin (S) [Mass conc ratio] 1.5 Normal 1.1-2.2 [facility] Comment on above: Performed By: #### 2 645645, 8894079, 7683011, 98383534, 0096335 ####[facility] [address] [place] [address] ALP [Catalytic activity/Vol] 64 Int._Unit/L Normal 21-98 [facility] Comment on above: Performed By: #### 2 997889, 6162675, 8803222, 15776474, 0256038 ####[facility] [address] [place] [address] ALT No additional P-5'-P [Catalytic activity/Vol] 9 Int._Unit/L Normal 6-46 [facility] Comment on above: Performed By: #### 2 142671, 8295910, 9110462, 71311861, 3602156 ####[facility] [address] [place] [address] AST [Catalytic activity/Vol] 12 Int._Unit/L Normal 5-43 [facility] Comment on above: Performed By: #### 2 586779, 8742816, 1214142, 53518312, 6173836 ####[facility] [address] [place] [address] Bilirubin [Mass/Vol] 0.2 mg/dL Normal 0.0-1.1 [facility] Comment on above: Performed By: #### 2 678244, 7279122, 2103987, 83448105, 9584784 ####[facility] [address] [place] [address] Bilirubin.direct [Mass/Vol] 0.0 mg/dL Normal 0.0-0.4 [facility] Comment on above: Performed By: #### 2 101436, 2655085, 7468221, 34880879, 6976354 ####[facility] [address] [place] [address] Bilirubin.indirect [Mass or moles/Vol] 0.2 mg/dL Normal 0.1-0.9 [facility] Comment on above: Performed By: #### 2 902299, 0330088, 0120247, 23184517, 0606809 ####[address] [address] Globulin (S) [Mass/Vol] 3.0 g/dL Normal 1.4-4.0 F [facility] Comment on above: Performed By: #### 2 622803, 3204199, 5402114, 27770282, 1150176 ####[facility] [address] [place] [address] Protein [Mass/Vol] 7.4 g/dL Normal 6.0-7.8 [facility] Comment on above: Performed By: #### 2 953904, 4585688, 3378014, 90045437, 2680707 ####[address] [place] [address] Lipase Levelon 09-30-2023 Lipase [Catalytic activity/Vol] 61 U/L High 13-58 [facility] Comment on above: Performed By: #### 2 115209, 7616414, 7812764, 56891282, 11524494 #### [facility] [address] [place] [address] SEROLOGYOrdered By: Ariadne Sheehan on 09-30-2023 HCG.beta subunit (U) [Moles/Vol] Negative Normal [facility] Man Sero U BetaHcg Qualon 09-30-2023 HCG.beta subunit (U) [Moles/Vol] Negative Normal [facility] Comment on above: Performed By: #### 2 164680, 8157066, 6137702, 74748649, 33180598 #### [facility] [address] [place] [address] UA with Cult Rflxon 09-30-19 24 Bacteria Auto Ql (U) Trace Normal Trace Fish [facility] Comment on above: Performed By: #### 2 131282, 8605114, 4407674, 15126969, 65720699 #### [facility] [address] [place] [address] Bilirubin Ql (U) Negative Normal Negative [facility] Comment on above: Performed By: #### 2 062831, 4785209, 3600338, 17114588, 28250685 #### [facility] [address] [place] [address] Clarity (U) Clear Normal Clear [facility] Comment on above: Performed By: #### 2 953767, 8783642, 0312583, 19586977, 78245486 #### [facility] [address] [place] [address] Color (U) Light-Yellow Normal Yellow [facility] Comment on above: Result Comment: Micr oscopic readings are only performed on those samples that meet specific criteria set forth by [facility]. Performed By: #### 2 036258, 2573974, 2202862, 09191339, 73162946 #### [facility] [address] [place] [address] Epithelial cells.squamous Auto (Urine sed) [#/Area] 3-4 Abnormal 0-2 [facility] Comment on above: Performed By: #### 2 586498, 1868930, 8050077, 19489062, 56905470 #### [facility] [address] [place] [address] Glucose Ql (U) Negative Normal Negative [facility] Comment on above: Performed By: #### 2 543119, 8569644, 7711807, 46566799, 29770325 #### [facility] [address] [place] [address] Hemoglobin Auto test strip (U) [Mass/Vol] Trace Abnormal Negative [facility] Comment on above: Performed By: #### 2 975704, 3436666, 0506786, 06542839, 99658616 #### [facility] [address] [place] [address] Ketones Auto test strip Ql (U) Negative Normal Negative [facility] Comment on above: Performed By: #### 2 101918, 6401726, 2648355, 54052355, 13125181 #### [facility] [address] [place] [address] Leukocyte esterase Auto test strip Ql (U) 75 Bertrand/uL Abnormal Negative [facility] Comment on above: Performed By: #### 2 244558, 3084196, 8549665, 42054587, 08011160 #### [facility] [address] [place] [address] Mucus Auto Ql (U) Negative Normal Negative [facility] Comment on above: Performed By: #### 2 677799, 4613035, 2300715, 76394007, 27802589 #### [facility] [address] [place] [address] Nitrite Auto test strip Ql (U) Negative Normal Negative [facility] Comment on above: Performed By: #### 2 248646, 3763249, 9046599, 72969517, 27167797 #### [facility] [address] [place] [address] pH (U) 5.5 [pH] Invalid Interpretation Code 5.0-9.0 [facility] Comment on above: Performed By: #### 2 685581, 9556944, 6958682, 13047976, 69622293 #### [facility] [address] [place] [address] Protein Ql (U) Negative Normal Negative [facility] Comment on above: Performed By: #### 2 759553, 7953818, 5736889, 57056592, 16748625 #### [facility] [address] [place] [address] RBC Ql (U) 4-20 Abnormal 0-3 [facility] Comment on above: Performed By: #### 2 425202, 1233884, 0869345, 68738453, 29621500 #### [facility] [address] [place] [address] Specific gravity (U) [Rel density] 1.017 Invalid Interpretation Code 1.005-1.030 [facility] Comment on above: Performed By: #### 2 713205, 2886078, 2580991, 29998085, 57926835 #### [facility] [address] [place] [address] Urobilinogen (U) [Mass/Vol] Negative Normal Negative [facility] Comment on above: Performed By: #### 2 435041, 7237869, 5006744, 26143329, 47573651 #### [facility] [address] [place] [address] WBC Auto (Urine sed) [#/Area] 0-5 Normal 0-5 [facility] Comment on above: Performed By: #### 2 902397, 1288951, 9389875, 43641595, 94573463 #### [facility] [address] [place] [address] URINALYSISOrdered By: SYSTEM SYSTEM on 09-30-2023 Bacteria [...] specific criteria set forth by [facility]. Epithelial cells.squamous Auto (Urine sed) [#/Area] [...] Desc Clean Catch (09/30/23 12:08 AM) Normal FT UA Auto SS US Doppler Abd/Pelvis Comple kelby 09-30-2023 US Doppler Abd/Pelvis Complete Exam Date/Time: 09/30/2023 02:04 EDT Reason for Exam: Torsion Report PLEASE SEE US Pelvis Non-OB Complete REPORT DATED: 09/30/2023. Ordering Provider: Ritesh Heath FINAL REPORT Dictated: 09/30/2023 4:11 am Harvey Leslie MD Signed (Electronic Signature): 09/30/2023 4:11 am Signed by: Harvey Leslei MD Transcribed by: MILLIE Technologist: GERDA Ordaz [facility] US Pelvis Non-OB Completeon 09-30-2023 US Pelvis [...] Performed Uterus Position Anteverted Normal [facility] US Transvaginal Non-OBon US Transvaginal Non-OB Exam Date/Time: 09/30/2023 02:03 EDT Reason for Exam: pssible torsion, known large cyst;Other (please specify) Report PLEASE SEE US Pelvis Non-OB Complete REPORT DATED: 09/30/2023. Ordering Provider: Ritesh Heath FINAL REPORT Dictated: 09/30/2023 4:11 am Harvey Leslie MD Signed (Electronic Signature): 09/30/2023 4:11 am Signed by: Harvey Leslie MD Transcribed by: MILLIE Technologist: GERDA Normal [facility] eGFRon 09-30-2023 eGFR 97 mL/min/1.73 m2 Normal >=59 [facility] Comment on above: Order Comment: Order added by Discern Expert. Performed By: #### 2 088578, 4368316, 6913247, 07843274, 19877716 #### [facility] [address] [place] [address] Consent for Treatmenton 09-11 Consent for Treatment [id number] #1.00TIFF Normal [facility] UA with Cult Rflxon 09-29-19 Type of Urine collection method Clean Catch [facility] Comment on above: Performed By: #### 2 966092, 1783019, 8823044, 46196434, 32632024 #### [facility] [address] [place] [address] ED Clinical Summaryon 2023 ED Clinical Summary [place] [id number] ED Clinical Summary Person Information Name: LIVIA NOYOLA/Michelle Age: 38 Years : 1985 Sex: Female Language: Cymraes PCP: NONE, XXXX Marital Status: Visit Id: [...] 09/26/2023 18:13:56 ADDRESS: [address] [place] [id number] PHYS DOC NOTES: MEDICAL INFORMATION: Prescriptions Given: New Medications [id number], [address], [place] [phone], [phone] diflunisal (diflunisal 500 mg Tab) 1 Tablets [...] INFORMATION: Instructions: Follow up: With: Address: When: [employer] [address] [address] Business (1) In 3 days 09/29/2023 With: Address: When: [address] [place] [address] Business (1) In 3 days 09/29/2023 With: Address: When: XXXX NONE , [place] In 3 days DIAGNOSIS: Abdominal pain; Constipation; Ovarian cyst Normal [facility] ED Patient Education Noteon 09-27-2023 ED Patient Education Note Normal [facility] ED Patient Summaryon 024 ED Patient Summary [address] [address] Patient Discharge Instructions Person Information Name: LIVIA NOYOLA Age: 38 Years Arrival Date: 09/26/2023 13:54:18 Discharge Diagnosis: Abdominal pain; Constipation; Ovarian cyst Primary Care Physician: NONE, XXXX Provider Information Primary Provider: Konstantin Penny DO [employer] Legal Secretary:None The exam and treatment you received in the Emergency Department were for an urgent problem and are not intended as complete care. It is important that you follow up with a doctor, nurse practitioner, or physician?s produce assistant for ongoing care. If your symptoms become worse or you do not improve as expected and you are unable to reach your usual health care provider, you should return to the Emergency Department. We are available 24 hours a day. LIVIA NOYOLA has been given the following list of patient education materials, prescriptions and follow-up instructions: Follow-up Instructions: With: Address: When: [employer] [address], [place] [id number] Business (1) In 3 days 09/29/2023 With: Address: When: Tarun BRADEN [facility], [address] [place] [address] [place], [place] [id number] Business (1) In 3 days 09/29/2023 With: [...] opioids can be used to help relieve nofiletn-ov-buwafi pain and are often prescribed following a [...] (more content not included)... Normal [facility] B hCG Qualon 09-26-2023 Beta HCG ( test) Ql Negative Normal [facility] Comment on above: Order Comment: FER dubois attempting lab work from IV start per Pt request. Phleb on standby if unable to get labs, [id number] 09/26/2023 14:42:36 EDT Performed By: #### 2 027280, 3661466, 9706733, 94939289, 32118330 #### [facility] [address] [place] [address] CBC w/ Auto Diffon 4 Anisocytosis Ql (Bld) PRESENT Invalid Interpretation Code [facility] Comment on above: Performed By: #### 2 435525, 3899556, 2683160, 50052944, 64731688 #### [facility] [address] [place] [address] Basophils/100 WBC (Bld) 0.8 % Normal 0.0-2.0 F [facility] Comment on above: Performed By: #### 2 908354, 2325225, 2946917, 55574887, 84231532 #### [facility] [address] [place] [address] Basophils/Leukocytes Auto (Bld) [Pure # fraction] 0.1 E9/L Normal 0.0-0.2 [facility] Comment on above: Performed By: #### 2 602524, 8981656, 5954168, 18367265, 85192241 #### [facility] [address] [place] [address] Eosinophils (Bld) [#/Vol] 0.0 E9/L Normal 0.0-0.5 [facility] Comment on above: Performed By: #### 2 396670, 7657394, 1981564, 01600494, 89557782 #### [facility] [address] [place] [address] Eosinophils/100 WBC (Bld) 0.0 % Normal 0.0-8.0 [facility] Comment on above: Performed By: #### 2 923368, 4377253, 7237672, 20799620, 92649994 #### [facility] [address] [place] [address] Hypochromia Auto Ql (Bld) PRESENT Invalid Interpretation Code [facility] Comment on above: Performed By: #### 2 724989, 3908762, 1918375, 01562740, 97353149 #### [facility] [address] [place] [address] Lymphocytes (Bld) [#/Vol] 1.6 E9/L Normal 1.0-4.0 [facility] Comment on above: Performed By: #### 2 753907, 5195839, 0833705, 16091957, 47456369 #### [facility] [address] [place] [address] Lymphocytes/100 WBC (Bld) 22.7 % Normal 14.0-50.0 [facility] Comment on above: Performed By: #### 2 982586, 9059184, 7389782, 20142499, 63905920 #### [facility] [address] [place] [address] Microcytes Ql (Bld) PRESENT Invalid Interpretation Code [facility] Comment on above: Performed By: #### 2 302515, 0796486, 8631230, 22050148, 19553291 #### [facility] [address] [place] [address] Monocytes (Bld) [#/Vol] 0.3 E9/L Normal 0.2-1.0 [facility] Comment on above: Performed By: #### 2 819378, 8699147, 6895896, 55913426, 85210208 #### [facility] [address] [place] [address] Neutrophils (Bld) [#/Vol] 5.1 E9/L Normal 2.0-7.5 [facility] Comment on above: Performed By: #### 2 882786, 0715478, 0015818, 54192174, 06284513 #### [facility] [address] [place] [address] Neutrophils/100 WBC (Bld) 71.6 % Normal 36.0-75.0 [facility] Comment on above: Performed By: #### 2 687655, 0564155, 3199670, 92162250, 17766187 #### [facility] [address] [place] [address] Erythrocyte distribution width (RBC) [Ratio] 17.8 % High 10.9-14.2 [facility] Comment on above: Performed By: #### 2 948374, 6577874, 4572826, 56985860, 45863163 #### [facility] [address] [place] [address] Hematocrit (Bld) [Volume fraction] 36.2 % Normal 34.0-46.0 [facility] Comment on above: Performed By: #### 2 802244, 6739853, 2687423, 34496188, 88686970 #### [facility] [address] [place] [address] Hemoglobin (Bld) [Mass/Vol] 11.2 g/dL Low 12.0-16.0 [facility] Comment on above: Performed By: #### 2 016989, 7801066, 3436617, 95578867, 99698360 #### [facility] [address] [place] [address] MCH (RBC) [Entitic mass] 23.2 pg Low 27.0-34.0 [facility] Comment on above: Performed By: #### 2 427263, 7787493, 9330019, 45602394, 46786044 #### [facility] [address] [place] [address] MCHC (RBC) [Mass/Vol] 31.0 g/dL Low 31.4-36.0 [facility] Comment on above: Performed By: #### 2 084080, 2776616, 1584837, 17449168, 68098219 #### [facility] [address] [place] [address] MCV (RBC) [Entitic vol] 74.9 fL Low 80.0-100.0 F [facility] Comment on above: Performed By: #### 2 558837, 6641826, 9001605, 09508701, 54215592 #### [facility] [address] [place] [address] Platelet mean volume (Bld) [Entitic vol] 7.5 fL Normal 6.4-10.8 [facility] Comment on above: Performed By: #### 2 193215, 7198721, 4183936, 89048531, 62361720 #### [facility] [address] [place] [address] Platelets (Bld) [#/Vol] 461.0 E9/L Normal 150.0-500.0 [facility] Comment on above: Performed By: #### 2 089983, 4961878, 5430560, 60188643, [id number] #### [facility] [address] [place] [address] RBC (Bld) [#/Vol] 4.8 E12/L Normal 4.3-5.9 [facility] Comment on above: Performed By: #### 2 494662, 1519051, 8763250, 73294996, 05126383 #### [facility] [address] [place] [address] WBC corrected for nucl RBC Auto (Bld) [#/Vol] 7.1 E9/L Normal 4.0-11.0 [facility] Comment on above: Performed By: #### 2 981775, 8895831, 7185745, 40189932, 85157492 #### [facility] [address] [place] [address] CHEMISTRYOrdered By: SYSTEM SYSTEM on 09-26-2023 Amphetamines [...] [Mass/Vol] 4.7 g/dL Normal 3.3-5.0 [facility] Comment on above: Performed By: #### 2 151855, 9939197, 7069671, 13627759, 42954213 #### [facility] [address] [place] [address] Albumin/Globulin (S) [Mass conc ratio] 1.3 Normal 1.1-2.2 [facility] Comment on above: Performed By: #### 2 224456, 5206723, 5452988, 53451957, 49640369 #### [facility] [address] [place] [address] ALP [Catalytic activity/Vol] 61 Int._Unit/L Normal 21-98 [facility] Comment on above: Performed By: #### 2 471866, 0987335, 1443840, 83945882, 89061021 #### [facility] [address] [place] [address] ALT No additional P-5'-P [Catalytic activity/Vol] 11 Int._Unit/L Normal 6-46 [facility] Comment on above: Performed By: #### 2 525147, 2024589, 9387859, 14185311, 82484484 #### [facility] [address] [place] [address] Anion gap [Moles/Vol] 15 mmol/L Normal 6-16 [facility] Comment on above: Performed By: #### 2 393842, 5968874, 2343049, 99610722, 16723792 #### [facility] [address] [place] [address] AST [Catalytic activity/Vol] 16 Int._Unit/L Normal 5-43 [facility] Comment on above: Performed By: #### 2 068880, 3857318, 3583830, 20249177, 22873268 #### [facility] [address] [place] [address] Bilirubin [Mass/Vol] 0.8 mg/dL Normal 0.0-1.1 [facility] Comment on above: Performed By: #### 2 268930, 2031101, 8825344, 34913070, 28293055 #### [facility] [address] [place] [address] Calcium [Mass/Vol] 9.7 mg/dL Normal 8.9-11.1 [facility] Comment on above: Performed By: #### 2 182851, 7735485, 2734582, 12482410, 25624110 #### [facility] [address] [place] [address] Chloride [Moles/Vol] 107 mmol/L Normal 101-111 [facility] Comment on above: Performed By: #### 2 076522, 8427911, 2867989, 93812845, 63259730 #### [facility] [address] [place] [address] CO2 [Moles/Vol] 20 mmol/L Low 21-31 [facility] Comment on above: Performed By: #### 2 646324, 5505935, 1699393, 38268204, 57736342 #### [facility] [address] [place] [address] Creatinine [Mass/Vol] 0.7 mg/dL Normal 0.5-1.3 [facility] Comment on above: Performed By: #### 2 922756, 0325965, 1610556, 13069912, 36970577 #### [facility] [address] [place] [address] Globulin (S) [Mass/Vol] 3.6 g/dL Normal 1.4-4.0 [facility] Comment on above: Performed By: #### 2 624047, 1122807, 9628265, 63629671, 14564388 #### [facility] [address] [place] [address] Glucose [Mass/Vol] 120 mg/dL Normal 55-199 [facility] Comment on above: Performed By: #### 2 776731, 8106538, 3760009, 06726151, 73702367 #### [facility] [address] [place] [address] Potassium [Moles/Vol] 3.8 mmol/L Normal 3.5-5.3 [facility] Comment on above: Performed By: #### 2 342890, 9624718, 2025682, 62098366, 30555736 #### [facility] [address] [place] [address] Protein [Mass/Vol] 8.3 g/dL High 6.0-7.8 [facility] Comment on above: Performed By: #### 2 322372, 7612513, 0676482, 80443584, 23120604 #### [facility] [address] [place] [address] Sodium [Moles/Vol] 138 mmol/L Normal 135-145 [facility] Comment on above: Performed By: #### 2 934639, 7478371, 6893511, 64383713, 92893948 #### [facility] [address] [place] [address] Urea nitrogen [Mass/Vol] 5 mg/dL Normal 5-21 [facility] Comment on above: Performed By: #### 2 152209, 8955551, 6064286, 70223669, 87764287 #### [facility] [address] [place] [address] Urea nitrogen/Creatinine [Mass ratio] 7 No Units Low 10-20 [facility] Comment on above: Performed By: #### 2 327599, 5379290, 1848075, 96076272, 89384349 #### [facility] [address] [place] [address] CT Abdomen/Pelvis w/ Contras ton 09-26-2023 CT [...] amount in ml's: 100 Normal [facility] Consent for Treatmenton 09-11 Consent for Treatment [id number] #1.00TIFF [facility] Discharge Instructionson Discharge Instructions [id number] #1.00TIFF [facility] ED Note-Physicianon 09-26-19 ED Note-Physician Basic Information Time Seen: Konstantin Penny DO 09/26/2023 14:25 Chief Complaint c/o nausea and left abdominal pain radiating to back that started back up yesterday. took bentyl ibuprofen and tramadol around noon with no relief. recent admission to [facility] a week ago for intusseption, ovarian cyst, elevated lactic. denies V/D History of Present Illness 38 year old female presents to the emergency department with chief complaint of abdominal pain. patient states this pain started yesterday and has associated nausea without vomiting. Patient states she was admitted 10 days ago to [facility] for intussusception, ovarian cysts, and elevated lactic. She states she was admitted for one day and that she had another CT done that showed resolution of the intussusception. She reports she was discharged home but went back to [place] ED yesterday for similar pain. She reports [...] We did review workup from [facility] just recently. Risks and benefits of obtaining [...] differential diagnosis. We did refer her to CLIENT EXPERIENCE ADMINISTRATOR for follow-up. Patient also was found to have some constipation on CT therefore we talked about dietary and lifestyle modifications and I did prescribe MiraLAX here as well. She is to follow-up in the outpatient setting return to ER symptoms should change or worsen she is comfortable with this plan. I, Dr. Penny had a wjup-xa-afiu interaction with the patient. I personally performed [...] q12hr, # 20 tab(s), Refills(s) 0, Pharmacy: [facility]/pharmacy #[id number], 165, cm, 09/26/23 14:18:00 EDT, Height/Length Dosing, 81.2, kg, 09/26/23 14:18:00 EDT, Weight Dosing hyoscyamine, 0.125 mg = 1 tab(s), Oral, QID, X 5 day(s), # 20 tab(s), Refills(s) 0, Pharmacy: [facility]/pharmacy #[id number], 165, cm, 09/26/23 14:18:00 EDT, Height/Length Dosing, 81.2, kg, 09/26/23 14:18:00 EDT, Weight Dosing ketorolac, 30 mg = 1 mL, Injection, IV, Once, Stop date 09/26/23 15:40:00 EDT, STAT, Start date 09/26/23 15:40:00 EDT, 09/26/23 15:40:00 EDT polyethylene glycol 3350, 17 gm, Oral, Daily, X 7 day(s), # 119 gm, Refills(s) 0, Pharmacy: [facility]/pharmacy #[id number], 165, cm, 09/26/23 14:18:00 EDT, (more content not included)... Normal [facility] Comment on above: Result Comment: Elec tronically [...] activity/Vol] 18 U/L Normal 13-58 [facility] Comment on above: Performed By: #### 2 840667, 4258927, 9642015, 37725624, 73071770 #### [facility] [address] [place] [address] Outside Recordson 09-26-2023 Outside Records [id number] 0#1.00TIFF Normal [facility] SEROLOGYOrdered By: Nohemi Taylor on 09-26-2023 Beta HCG ( test) Ql Negative (09/26/23 2:45 PM) Normal [facility] Man Sero U Drug Screenon 09-26-2023 Amphetamines Screen method >1000 ng/mL Ql (U) Negative Normal NEGATIVE [facility] Comment on above: Result Comment: Nega tive Cutoff: <1000 ng/mL Performed By: #### 2 040763, 9943798, 4167279, 53014646, 23626102 #### [facility] [address] [place] [address] Barbiturates Screen Ql (U) Negative Normal NEGATIVE [facility] Comment on above: Result Comment: Nega tive Cutoff: <200 ng/mL Performed By: #### 2 369171, 5406840, 1361663, 48112735, 19571853 #### [facility] [address] [place] [address] Benzodiazepines Ql (U) Negative Normal NEGATIVE [facility] Comment on above: Result Comment: Nega tive Cutoff: <200 ng/mL Performed By: #### 2 589768, 3347878, 2259541, 91615929, 11251034 #### [facility] [address] [place] [address] Cannabinoids Screen Ql (U) Negative Normal NEGATIVE [facility] Comment on above: Result Comment: Nega tive Cutoff: <50 ng/mL Performed By: #### 2 381296, 1944642, 9197546, 94504927, 07400244 #### [facility] [address] [place] [address] Cocaine Ql (U) Negative Normal NEGATIVE [facility] Comment on above: Result Comment: Nega tive Cutoff: <300 ng/mL Performed By: #### 2 380880, 3432459, 9086649, 60637947, 08417617 #### [facility] [address] [place] [address] Opiates Screen Ql (U) Negative Normal NEGATIVE Fis [facility] Comment on above: Result Comment: Nega tive Cutoff: <300 ng/mL Performed By: #### 2 600266, 6607877, 1255587, 43853932, 62381183 #### [facility] [address] [place] [address] Phencyclidine Screen method >25 ng/mL Ql (U) Negative Normal NEGATIVE [facility] Comment on above: Result Comment: Nega tive Cutoff: <25 ng/mL These drug screen results are to be used for medical (i.e., treatment) purposes only. Unconfirmed drug screening results must not be used for non-medical purposes (e.g., employment testing, legal testing). Performed By: #### 2 448141, 0347129, 7406705, 07264347, 59208440 #### [facility] [address] [place] [address] U Fentanyl Negative Normal NEGATIVE [facility] Comment on above: Result Comment: Nega tive Cutoff: <5 ng/mL These drug screen results are to be used for medical (i.e., treatment) purposes only. Unconfirmed drug screening results must not be used for non-medical purposes (e.g., employment testing, legal testing). Performed By: #### 2 675249, 9978920, 5965481, 30413492, 99014803 #### [facility] [address] [place] [address] UA with Cult Rflxon 09-26-19 24 Bilirubin Ql (U) Negative Normal Negative [facility] Comment on above: Performed By: #### 2 022118, 5801608, 5566539, 75120423, 07467858 #### [facility] [address] [place] [address] Clarity (U) Clear Normal Clear [facility] Comment on above: Performed By: #### 2 712413, 7578628, 7377368, 05737460, 17325014 #### [facility] [address] [place] [address] Color (U) Colorless Abnormal Yellow [facility] Comment on above: Result Comment: Micr oscopic readings are only performed on those samples that meet specific criteria set forth by [facility]. Performed By: #### 2 794931, 0339056, 5176598, 70609769, 74317774 #### [facility] [address] [place] [address] Glucose Ql (U) Negative Normal Negative [facility] Comment on above: Performed By: #### 2 085319, 5006270, 4160423, 01616153, 18399429 #### [facility] [address] [place] [address] Hemoglobin Auto test strip (U) [Mass/Vol] Negative Normal Negative [facility] Comment on above: Performed By: #### 2 926330, 5824457, 6342541, 79219361, 46327557 #### [facility] [address] [place] [address] Ketones Auto test strip Ql (U) Negative Normal Negative [facility] Comment on above: Performed By: #### 2 138427, 0552086, 5431014, 36280702, 99963887 #### [facility] [address] [place] [address] Leukocyte esterase Auto test strip Ql (U) Negative Normal Negative [facility] Comment on above: Performed By: #### 2 341461, 9134434, 3794917, 43944281, 91533402 #### [facility] [address] [place] [address] Nitrite Auto test strip Ql (U) Negative Normal Negative [facility] Comment on above: Performed By: #### 2 307935, 5920555, 1699940, 75881992, 00941864 #### [facility] [address] [place] [address] pH (U) 6.0 [pH] Invalid Interpretation Code 5.0-9.0 [facility] Comment on above: Performed By: #### 2 044747, 0177473, 5228367, 97793634, 47251757 #### [facility] [address] [place] [address] Protein Ql (U) Negative Normal Negative [facility] Comment on above: Performed By: #### 2 560918, 3450034, 7759949, 91461463, 89972763 #### [facility] [address] [place] [address] Specific gravity (U) [Rel density] 1.004 Invalid Interpretation Code 1.005-1.030 [facility] Comment on above: Performed By: #### 2 885611, 5864996, 7823814, 90105605, 04951860 #### [facility] [address] [place] [address] Urobilinogen (U) [Mass/Vol] Negative Normal Negative [facility] Comment on above: Performed By: #### 2 492900, 8331118, 6192738, 30589035, 82623375 #### [facility] [address] [place] [address] Type of Urine collection method Clean Catch Normal [facility] Comment on above: Performed By: #### 2 856076, 0931591, 8872611, 07429544, 51687115 #### [facility] [address] [place] [address] URINALYSISOrdered By: SYSTEM SYSTEM on 09-26-2023 Bilirubin Ql (U) Negative Normal Negativemg/ d L [facility] UA Auto SS Clarity (U) Clear (09/26/23 2:49 PM) Normal Clear [facility] UA Auto SS Color (U) Colorless 3 *ABN* (09/26/23 2:49 PM) Invalid Interpretation Code Yellow [facility] UA Auto SS Comment on above: Interpretive Data: M icroscopic readings are only performed on those samples that meet specific criteria set forth by [facility]. Glucose Ql (U) Negative Normal Negativemg/d [...] PM) Invalid Interpretation Code 5.0 - 9.0 [facility] UA Auto SS Protein Ql (U) Negative Normal Negativemg/d L [facility] UA Auto SS Specific gravity (U) [Rel density] 1.004 *NA* (09/26/23 2:49 PM) Invalid Interpretation Code 1.005 - 1.030 [facility] UA Auto SS Urobilinogen (U) [Mass/Vol] Negative Normal Negativemg/d L [facility] UA Auto SS URINALYSISOrdered By: Konstantin dillard on 09-26-2023 UA Spec Desc Clean Catch (09/26/23 2:49 PM) Normal [facility] UA Auto SS US Pelvis Non-OB Completeon [...] Performed Uterus Position Anteverted Normal [facility] US Transvaginal Non-OBon US Transvaginal Non-OB Exam Date/Time: 09/26/2023 17:41 EDT Reason for Exam: Pelvic pain Report Please see ultrasound pelvis non-OB complete report Ordering Provider: Konstantin Penny FINAL REPORT Dictated: 09/26/2023 5:53 pm Chad Mo DO Signed (Electronic Signature): 09/26/2023 5:53 pm Signed by: Chad Mo DO Transcribed by: MILLIE Technologist: HAILEY Normal [facility] eGFRon 09-26-2023 eGFR 114 mL/min/1.73 m2 Normal >=59 [facility] Comment on above: Order Comment: Order added by Discern Expert. Performed By: #### 2 824311, 6190571, 9603614, 63458350, 21856812 #### [facility] [address] [place] [address] CBC With Platelet and Differ entialon 09-06-2023 Basophils (Bld) [#/Vol] 0.1 10*3/uL Normal 0.0-0.2 [facility] Comment on above: Performed By: #### C BCWD #### [facility] [address] [place] [address] Basophils/100 WBC (Bld) 0.6 % Normal [facility] Comment on above: Performed By: #### C BCWD #### [facility] [address] [place] [address] Eosinophils (Bld) [#/Vol] 0.1 10*3/uL Normal 0.0-0.7 [facility] Comment on above: Performed By: #### C BCWD #### [facility] [address] [place] [address] Eosinophils/100 WBC (Bld) 0.6 % Normal [facility] Comment on above: Performed By: #### C BCWD #### [facility] [address] [place] [address] Erythrocyte distribution width (RBC) [Ratio] 15.9 % Critically high 11.5-14.5 [facility] Comment on above: Performed By: #### C BCWD #### [facility] [address] [place] [address] Hematocrit (Bld) [Volume fraction] 34.5 % Low 37.0-47.0 [facility] Comment on above: Performed By: #### C BCWD #### [facility] [address] [place] [address] Hemoglobin (Bld) [Mass/Vol] 10.1 g/dL Low 12.0-16.0 [facility] Comment on above: Performed By: #### C BCWD #### [facility] [address] [place] [address] Lymphocytes (Bld) [#/Vol] 4.4 10*3/uL Normal 1.0-4.8 [facility] Comment on above: Performed By: #### C BCWD #### [facility] [address] [place] [address] Lymphocytes/100 WBC (Bld) 54.2 % Normal [facility] Comment on above: Performed By: #### C BCWD #### [facility] [address] [place] [address] MCH (RBC) [Entitic mass] 22.9 pg Low 27.0-31.3 [facility] Comment on above: Performed By: #### C BCWD #### [facility] [address] [place] [address] MCHC 29.3 % Low 33.0-37.0 [facility] Comment on above: Performed By: #### C BCWD #### [facility] [address] [place] [address] MCV (RBC) [Entitic vol] 78.2 fL Low 79.4-94.8 [facility] Comment on above: Performed By: #### C BCWD #### [facility] [address] [place] [address] Monocytes (Bld) [#/Vol] 0.5 10*3/uL Normal 0.2-0.8 [facility] Comment on above: Performed By: #### C BCWD #### [facility] [address] [place] [address] Monocytes/100 WBC (Bld) 6.5 % Normal [facility] Comment on above: Performed By: #### C BCWD #### [facility] [address] [place] [address] Neutrophils (Bld) [#/Vol] 3.1 10*3/uL Normal 1.4-6.5 [facility] Comment on above: Performed By: #### C BCWD #### [facility] [address] [place] [address] Neutrophils/100 WBC (Bld) 37.9 % Normal [facility] Comment on above: Performed By: #### C BCWD #### [facility] [address] [place] [address] Platelets (Bld) [#/Vol] 482 10*3/uL Critically high 130-40 0 [facility] Comment on above: Performed By: #### C BCWD #### [facility] [address] [place] [address] RBC (Bld) [#/Vol] 4.41 10*6/uL Normal 4.20-5.40 [facility] Comment on above: Performed By: #### C BCWD #### [facility] [address] [place] [address] WBC (Bld) [#/Vol] 8.1 10*3/uL Normal 4.8-10.8 [facility] Comment on above: Performed By: #### C BCWD #### [facility] [address] [place] [address] Comprehensive Metabolic Pane van 09-06-2023 Albumin [Mass/Vol] 4.4 g/dL Normal 3.5-4.6 [facility] Comment on above: Performed By: #### C MP #### [facility] [address] [place] [address] ALP [Catalytic activity/Vol] 72 U/L Normal 40-130 [facility] Comment on above: Performed By: #### C MP #### [facility] [address] [place] [address] ALT [Catalytic activity/Vol] 15 U/L Normal 0-33 [facility] Comment on above: Performed By: #### C MP #### [facility] [address] [place] [address] Anion gap [Moles/Vol] 11 mmol/L Normal 9-15 [facility] Comment on above: Performed By: #### C MP #### [facility] [address] [place] [address] AST [Catalytic activity/Vol] 18 U/L Normal 0-35 [facility] Comment on above: Performed By: #### C MP #### [facility] [address] [place] [address] Bilirubin [Mass/Vol] 0.4 mg/dL Normal 0.2-0.7 [facility] Comment on above: Performed By: #### C MP #### [facility] [address] [place] [address] Calcium [Mass/Vol] 9.5 mg/dL Normal 8.5-9.9 [facility] Comment on above: Performed By: #### C MP #### [facility] [address] [place] [address] Chloride [Moles/Vol] 102 mmol/L Normal 95-107 [facility] Comment on above: Performed By: #### C MP #### [facility] [address] [place] [address] CO2 [Moles/Vol] 24 mmol/L Normal 20-31 [facility] Comment on above: Performed By: #### C MP #### [facility] [address] [place] [address] Creatinine [Mass/Vol] 0.59 mg/dL Normal 0.50-0.90 [facility] Comment on above: Performed By: #### C MP #### [facility] [address] [place] [address] GFR >90.0 Normal >60 [facility] Comment on above: Result Comment: Pedi atric [...] secretion. Performed By: #### C MP #### [facility] [address] [place] [address] Globulin (S) [Mass/Vol] 3.5 g/dL Normal 2.3-3.5 [facility] Comment on above: Performed By: #### C MP #### [facility] [address] [place] [address] Glucose [Mass/Vol] 98 mg/dL Normal 70-99 [facility] Comment on above: Performed By: #### C MP #### [facility] [address] [place] [address] Potassium [Moles/Vol] 3.2 mmol/L Low 3.4-4.9 [facility] Comment on above: Performed By: #### C MP #### [facility] [address] [place] [address] Protein [Mass/Vol] 7.9 g/dL Normal 6.3-8.0 [facility] Comment on above: Performed By: #### C MP #### [facility] [address] [place] [address] Sodium [Moles/Vol] 137 mmol/L Normal 135-144 [facility] Comment on above: Performed By: #### C MP #### [facility] [address] [place] [address] Urea nitrogen [Mass/Vol] 4 mg/dL Low 6-20 [facility] Comment on above: Performed By: #### C MP #### [facility] [address] [place] [address] US NON OB TRANSVAGINALon US NON OB [...] Jessy Campos MD 09/06/23 Final result Normal [facility] US PELVIS COMPLETEon 024 US PELVIS [...] Jessy Campos MD 09/06/23 Final result Normal [facility] Urinalysis, reflex to cultur silvino 09-06-2023 Urine Reflexed to Culture Not Indicated Normal [facility] Comment on above: Performed By: #### U AR #### [facility] [address] [place] [address] Bilirubin Ql (U) Negative Normal Negative [facility] Comment on above: Performed By: #### U AR #### [facility] [address] [place] [address] Clarity (U) Clear Normal Clear [facility] Comment on above: Performed By: #### U AR #### [facility] [address] [place] [address] Color (U) Yellow Normal Straw/Pecos [facility] Comment on above: Performed By: #### U AR #### [facility] [address] [place] [address] Glucose Ql (U) >=1000 Abnormal Negative [facility] Comment on above: Performed By: #### U AR #### [facility] [address] [place] [address] Hemoglobin Ql (U) TRACE Abnormal Negative [facility] Comment on above: Performed By: #### U AR #### [facility] [address] [place] [address] Ketones Ql (U) >=80 Abnormal Negative [facility] Comment on above: Performed By: #### U AR #### [facility] [address] [place] [address] Leukocyte esterase Test strip Ql (U) Negative Normal Negative [facility] Comment on above: Performed By: #### U AR #### [facility] [address] [place] [address] Nitrite Ql (U) Negative Normal Negative [facility] Comment on above: Performed By: #### U AR #### [facility] [address] [place] [address] pH (U) 5.0 [pH] Normal 5.0-9.0 [facility] Comment on above: Performed By: #### U AR #### [facility] [address] [place] [address] Protein Ql (U) TRACE Abnormal Negative [facility] Comment on above: Performed By: #### U AR #### [facility] [address] [place] [address] Specific gravity (U) [Rel density] 1.025 Normal 1.005-1.03 [facility] Comment on above: Performed By: #### U AR #### [facility] [address] [place] [address] Urobilinogen Qn (U) 0.2 {Ivone'U}/dL Normal < 2.0 [facility] Comment on above: Performed By: #### U AR #### [facility] [address] [place] [address] Urine Microscopicon 09-06-19 24 Bacteria LM.HPF (Urine sed) [#/Area] Negative Normal Negative [facility] Comment on above: Performed By: #### U ARELIS #### [facility] [address] [place] [address] Urine Epithelial Cells Auto 0-2 Normal 0-5 [facility] Comment on above: Performed By: #### U ARELIS #### [facility] [address] [place] [address] Urine Hyaline Casts Auto 0-1 Normal 0-5 [facility] Comment on above: Performed By: #### U ARELIS #### [facility] [address] [place] [address] Urine RBC Auto 3-5 Abnormal 0-5 [facility] Comment on above: Performed By: #### U ARELIS #### [facility] [address] [place] [address] Urine WBC Auto 0-2 Normal 0-5 [facility] Comment on above: Performed By: #### U ARELIS #### [facility] [address] [place] [address] ED Note-Physicianon 08-01-19 24 ED Note-Physician Basic [...] endometritis for which she follows with a PRICK STITCHER at the [facility]. Review of Systems A 10 point review [...] for discharge home and follow-up with her PRICK STITCHER. Short course of pain medication as prescribed after an OARRS review for this patient. Return precautions were discussed. All questions were answered. The patient was discharged home for outpatient follow-up for her acute on chronic pain. Assessment/Plan Abdominal pain, acute (R10.9: Unspecified abdominal pain) Ordered: acetaminophen-oxycod one, 1 tab(s), Oral, q6hr Pain 8-10 for 3 day(s), 12 tab(s), Refill(s) 0, [id number], 165.1, cm, 07/31/23 15:42:00 EST, [...] mL, Injection, IV Push, Once, Stop date 02/18/24 15:52:00 EST, STAT, Start date 07/31/23 15:52:00 [...] (more content not included)... Normal [facility] Comment on above: Result Comment: Elec tronically Signed By: Jignesh Dumont DO.br\Date and Time Signed: 08/01/23 09:21 EST B hCG Qualon 07-31-2023 Beta HCG ( test) Ql Negative Normal [facility] Comment on above: Performed By: #### 2 240969, 0286882, 2510738, 23470417, 70129863 #### [facility] [address] [place] [address] BMPon 07-31-2023 Anion gap [Moles/Vol] 15 mmol/L Normal 6-16 [facility] Comment on above: Performed By: #### 2 483933, 4753778, 7855104, 43782885, 83907901 #### [facility] [address] [place] [address] BUN/Creat Ratio 4 No Units Low 10-20 [facility] Comment on above: Performed By: #### 2 592692, 6816441, 4708806, 67618174, 10206403 #### [facility] [address] [place] [address] Calcium [Mass/Vol] 9.6 mg/dL Normal 8.9-11.1 [facility] Comment on above: Performed By: #### 2 712989, 6537934, 1374256, 06617368, 08348550 #### [facility] [address] [place] [address] Chloride [Moles/Vol] 106 mmol/L Normal 101-111 [facility] Comment on above: Performed By: #### 2 554953, 5448529, 1342910, 35571331, 98331757 #### [facility] [address] [place] [address] CO2 [Moles/Vol] 21 mmol/L Normal 21-31 [facility] Comment on above: Performed By: #### 2 956846, 3617871, 8459698, 46064230, 56629185 #### [facility] [address] [place] [address] Creatinine [Mass/Vol] 0.9 mg/dL Normal 0.5-1.3 [facility] Comment on above: Performed By: #### 2 593344, 5362339, 3589058, 18825727, 10367985 #### [facility] [address] [place] [address] Glucose [Mass/Vol] 109 mg/dL Normal 55-199 [facility] Comment on above: Performed By: #### 2 544131, 0279033, 8258914, 94352188, 26079861 #### [facility] [address] [place] [address] Potassium [Moles/Vol] 3.6 mmol/L Normal 3.5-5.3 [facility] Comment on above: Performed By: #### 2 078649, 0190229, 2221018, 73710097, 73759380 #### [facility] [address] [place] [address] Sodium [Moles/Vol] 138 mmol/L Normal 135-145 [facility] Comment on above: Performed By: #### 2 727306, 1986354, 8504141, 85122182, 11925720 #### [facility] [address] [place] [address] Urea nitrogen [Mass/Vol] mg/dL Low 5-21 [facility] Comment on above: Performed By: #### 2 777276, 5495440, 2216050, 96314838, 91972139 #### [facility] [address] [place] [address] CBC w/ Auto Diffon 4 Anisocytosis Ql (Bld) PRESENT Invalid Interpretation Code [facility] Comment on above: Performed By: #### 2 057022, 0491829, 0677677, 31160009, 80100305 #### [facility] [address] [place] [address] Microcyte PRESENT Invalid Interpretation Code [facility] Comment on above: Performed By: #### 2 596523, 7825698, 7123270, 78565297, 33139181 #### [facility] [address] [place] [address] RBC morphology finding Nom (Bld) SEE MORPHOLOGY Invalid Interpretation Code [facility] Comment on above: Performed By: #### 2 313987, 3274333, 0234981, 61410580, 14137463 #### [facility] [address] [place] [address] Basophil Absolute 0.1 E9/L Normal 0.0-0.2 [facility] Comment on above: Performed By: #### 2 060878, 2983256, 9270589, 73613283, 46042947 #### [facility] [address] [place] [address] Basophils/100 WBC (Bld) 1.1 % Normal 0.0-2.0 [facility] Comment on above: Performed By: #### 2 762631, 3311874, 8691953, 50680056, 11728214 #### [facility] [address] [place] [address] Eos Absolute 0.0 E9/L Normal 0.0-0.5 [facility] Comment on above: Performed By: #### 2 084117, 3057216, 8166604, 77747681, 12571627 #### [facility] [address] [place] [address] Eosinophils/100 WBC (Bld) 0.2 % Normal 0.0-8.0 [facility] Comment on above: Performed By: #### 2 924057, 5748739, 3844768, 18335007, 81222241 #### [facility] [address] [place] [address] Erythrocyte distribution width (RBC) [Ratio] 16.5 % High 10.9-14.2 [facility] Comment on above: Performed By: #### 2 822716, 5973470, 1337217, 36844366, 39706135 #### [facility] [address] [place] [address] Hematocrit (Bld) [Volume fraction] 36.0 % Normal 34.0-46.0 [facility] Comment on above: Performed By: #### 2 983973, 3722447, 4640907, 57775659, 17842482 #### [facility] [address] [place] [address] Hemoglobin (Bld) [Mass/Vol] 11.4 g/dL Low 12.0-16.0 [facility] Comment on above: Performed By: #### 2 680875, 7605105, 2434164, 58091672, 91852369 #### [facility] [address] [place] [address] Lymph Absolute 2.2 E9/L Normal 1.0-4.0 [facility] Comment on above: Performed By: #### 2 971493, 5226923, 8042716, 34936777, 75819323 #### [facility] [address] [place] [address] Lymphocytes/100 WBC (Bld) 25.3 % Normal 14.0-50.0 [facility] Comment on above: Performed By: #### 2 510030, 6898619, 2349333, 85447880, 99370738 #### [facility] [address] [place] [address] MCH (RBC) [Entitic mass] 24.0 pg Low 27.0-34.0 [facility] Comment on above: Performed By: #### 2 210649, 1217130, 9743331, 15378134, 01827350 #### [facility] [address] [place] [address] MCHC (RBC) [Mass/Vol] 31.9 g/dL Normal 31.4-36.0 [facility] Comment on above: Performed By: #### 2 476632, 3887757, 9352170, 53565265, 25006721 #### [facility] [address] [place] [address] MCV (RBC) [Entitic vol] 75.2 fL Low 80.0-100.0 [facility] Comment on above: Performed By: #### 2 562896, 6613392, 2459438, 12700133, 29979943 #### [facility] [address] [place] [address] [place] Absolute 0.5 E9/L Normal 0.2-1.0 [facility] Comment on above: Performed By: #### 2 121887, 5628144, 3878657, 11662981, 16735624 #### [facility] [address] [place] [address] Monocytes/100 WBC (Bld) 5.4 % Normal 4.0-14.0 [facility] Comment on above: Performed By: #### 2 721183, 4715938, 5943864, 88863234, 94098500 #### [facility] [address] [place] [address] Neutro Absolute 5.9 E9/L Normal 2.0-7.5 [facility] Comment on above: Performed By: #### 2 130693, 0931584, 0012434, 82916599, 45723403 #### [facility] [address] [place] [address] Neutro Auto 68.0 % Normal 36.0-75.0 [facility] Comment on above: Performed By: #### 2 418218, 7457476, 8797391, 18537295, 76515076 #### [facility] [address] [place] [address] Platelet 612.0 E9/L High 150.0-500.0 [facility] Comment on above: Performed By: #### 2 944407, 8901938, 4616556, 52722963, 51652955 #### [facility] [address] [place] [address] Platelet mean volume (Bld) [Entitic vol] 7.4 fL Normal 6.4-10.8 [facility] Comment on above: Performed By: #### 2 671361, 6393815, 1379925, 55468863, 39927727 #### [facility] [address] [place] [address] RBC 4.7 E12/L Normal 4.3-5.9 [facility] Comment on above: Performed By: #### 2 248851, 4015134, 9769071, 64927622, 80055415 #### [facility] [address] [place] [address] WBC 8.6 E9/L Normal 4.0-11.0 [facility] Comment on above: Performed By: #### 2 203664, 0835589, 1459028, 17017774, 31625426 #### [facility] [address] [place] [address] CHEMISTRYOrdered By: SYSTEM SYSTEM on 07-31-2023 Albumin [...] - [address] Abdomen/Pelvis w/o Bernardo del toro 07-31-2023 CT Abdomen/Pelvis w/o Contrast Exam Date/Time: [...] amount in ml's: 0 Normal [facility] Discharge Instructionson Discharge Instructions [id number] #1.00TIFF Normal [facility] ED Clinical Summaryon 2023 ED Clinical Summary [place] [id number] ED Clinical Summary Person Information [facility] Age: 38 Years : 1985 Sex: Female Language: Cymraes PCP: NONE, XXXX Marital Status: Visit Id: [...] 07/31/2023 18:03:59 ADDRESS: [address] [place] [id number] PHYS DOC NOTES: MEDICAL INFORMATION: Prescriptions Given: New Medications [id number], [address], [place] [id number], [phone] acetaminophen-oxycod one (Percocet 5 mg-325 mg oral [...] up: With: Address: When: Follow-up with your PRICK STITCHER at [facility] In 3 days 08/03/2023 Comments: Call the [...] DIAGNOSIS: Abdominal pain, acute Normal [facility] ED Patient Education Noteon 07-31-2023 ED Patient [...] these instructions at home: Medicines ? Take qfvy-teo-fncdqgx and prescription medicines only as told by [...] your condition for any changes. ? Take bouu-xzr-naezhya and prescription medicines only as told by [...] Reviewed: 10/08/2019 Elsevier Patient Education ? 2022 [employer] Normal [facility] ED Patient Summaryon 024 ED Patient Summary [address] [address] Patient Discharge Instructions Person Information Name: LIVIA NOYOLA Age: 38 Years Arrival Date: 07/31/2023 15:33:06 Discharge Diagnosis: Abdominal pain, acute Primary Care Physician: NONE, XXXX Provider Information Primary Provider: Jignesh Dumont DO [employer] Legal Secretary:Shazia The exam and treatment you received in the Emergency Department were for an urgent problem and are not intended as complete care. It is important that you follow up with a doctor, nurse practitioner, or physician?s produce assistant for ongoing care. If your symptoms [...] Instructions: With: Address: When: Follow-up with your PRICK STITCHER at [facility] In 3 days 08/03/2023 Comments: Call the [...] opioids can be used to help relieve tdsivbah-nj-fbpqjv pain and are often prescribed following a [...] (more content not included)... Normal [facility] HEMATOLOGYOrdered By: Sloane Mazariegos on 07-31-2023 Anisocytosis [...] Low 80.0 - 100.0 fL Remisol Heme [place] Absolute 0.5 E9/L Normal 0.2 - 1.0 [...] [Mass/Vol] 4.6 g/dL Normal 3.3-5.0 [facility] Comment on above: Performed By: #### 2 835515, 8489003, 4327271, 07817933, 97737672 #### [facility] [address] [place] [address] Albumin/Globulin [Mass ratio] 1.4 {ratio} Normal 1.1-2.2 [facility] Comment on above: Performed By: #### 2 969693, 9399721, 6541597, 42386233, 93575555 #### [facility] [address] [place] [address] Alk Phos 73 Int._Unit/L Normal 21-98 [facility] Comment on above: Performed By: #### 2 619985, 6899781, 0473383, 34721514, 29829018 #### [facility] [address] [place] [address] ALT 10 Int._Unit/L Normal 6-46 [facility] Comment on above: Performed By: #### 2 055083, 7838208, 2756636, 76328635, 11961240 #### [facility] [address] [place] [address] AST 11 Int._Unit/L Normal 5-43 [facility] Comment on above: Performed By: #### 2 783906, 9744978, 5849100, 22132269, 11771471 #### [facility] [address] [place] [address] Bili Direct 0.1 mg/dL Normal 0.0-0.4 [facility] Comment on above: Performed By: #### 2 787794, 8325173, 0007081, 32226310, 22701667 #### [facility] [address] [place] [address] Bili Indirect 0.4 mg/dL Normal 0.1-0.9 [facility] Comment on above: Performed By: #### 2 063844, 8738390, 9854612, 06027627, 21622847 #### [facility] [address] [place] [address] Bili Total 0.5 mg/dL Normal 0.0-1.1 [facility] Comment on above: Performed By: #### 2 863066, 0317551, 7480676, 82250450, 70520862 #### [facility] [address] [place] [address] Globulin (S) [Mass/Vol] 3.3 g/dL Normal 1.4-4.0 [facility] Comment on above: Performed By: #### 2 508457, 2985783, 3033108, 86786038, 49036420 #### [facility] [address] [place] [address] Protein [Mass/Vol] 7.9 g/dL High 6.0-7.8 [facility] Comment on above: Performed By: #### 2 261428, 1590271, 4042267, 35603990, 42926083 #### [facility] [address] [place] [address] Monitor Recordon 07-31-2023 Monitor Record [id number] 2#1.00TIFF Normal [facility] SEROLOGYOrdered By: Felicity patel on 07-31-2023 Beta HCG ( test) Ql Negative (07/31/23 4:20 PM) Normal [facility] Man Sero UA With Cult Reflexon 2023 Bacteria LM Ql (Urine sed) TRACE Normal Trace [facility] Comment on above: Performed By: #### 1 4847329 ####[facility] [address] [place] [address] Bilirubin Ql (U) Negative Normal Negative [facility] Comment on above: Performed By: #### 1 8948886 ####[facility] [address] [place] [address] Clarity (U) CLEAR Normal Clear [facility] Comment on above: Performed By: #### 1 7273751 ####[address] [address] Color (U) YELLOW Normal Yellow [facility] Comment on above: Performed By: #### 1 9100275 ####[address] [address] Epithelial cells.squamous LM.HPF (Urine sed) [#/Area] 0-2 Normal 0-2 [facility] Comment on above: Performed By: #### 1 0604523 ####[address] [address] Glucose Test strip (U) [Mass/Vol] Negative Normal Negative [facility] Comment on above: Performed By: #### 1 6661734 ####[address] [address] Hemoglobin Ql (U) Negative Normal Negative [facility] Comment on above: Performed By: #### 1 3288123 ####[address] [address] Ketones (U) [Mass/Vol] 1+ Abnormal Negative Fi [facility] Comment on above: Performed By: #### 1 9492999 ####[address] [address] [place].plasma/[place]. RBC (Bld) [Mass ratio] 0-3 Normal 0-3 [facility] Comment on above: Performed By: #### 1 9215171 ####[address] [address] Mucus Ql (Urine sed) TRACE Normal [facility] Comment on above: Performed By: #### 1 1252947 ####[address] [address] Nitrite Ql (U) Negative Normal Negative [facility] Comment on above: Performed By: #### 1 6625412 ####[address] [address] pH (U) 8.5 [pH] Invalid Interpretation Code 5.0-9.0 [facility] Comment on above: Performed By: #### 1 7091070 ####[facility] [address] [place] [address] Protein (U) [Mass/Vol] Negative Normal Negative [facility] Comment on above: Performed By: #### 1 9574185 ####[facility] [address] [place] [address] Specific gravity (U) [Rel density] 1.015 Invalid Interpretation Code 1.005-1.030 [facility] Comment on above: Performed By: #### 1 0506787 ####[address] [address] Type of Urine collection method Clean Catch Normal [facility] Comment on above: Performed By: #### 1 1775076 ####[address] [address] Urobilinogen Qn (U) 0.2 {Ivone'U}/dL Normal 0.0-1.0 [facility] Comment on above: Performed By: #### 1 9552757 ####[facility] [address] [place] [address] WBC Auto Ql (U) Negative Normal Negative [facility] Comment on above: Performed By: #### 1 7899405 ####[facility] [address] [place] [address] WBC LM.HPF (Urine sed) [#/Area] 0-5 Normal 0-5 [facility] Comment on above: Performed By: #### 1 3612802 ####[address] [address] URINALYSISOrdered By: Felicity George on 07-31-2023 Bacteria [...] Interpretation Code Negative [facility] UA Auto SS [place].plasma/[place]. RBC (Bld) [Mass ratio] 0-3 /HPF Normal [...] Desc Clean Catch (07/31/23 4:30 PM) Normal [facility] UA Auto SS Urobilinogen Qn (U) 0.6412203 {Ivone'U}/dL Normal 0.0 - 1.0 EU/dL [facility] UA Auto SS WBC Auto Ql (U) Negative (07/31/23 4:30 PM) Normal Negative [facility] UA Auto SS WBC LM.HPF (Urine sed) [#/Area] 0-5 /HPF Normal 0-5/HPF [facility] UA Auto SS eGFRon 07-31-2023 eGFR 85 mL/min/1.73 m2 Normal >=59 [facility] Comment on above: Order Comment: Order added by Discern Expert. Performed By: #### 2 349415, 3502962, 6627997, 91377108, 81519532 #### [facility] [address] [place] [address] ED NOTEon 06-23-2023 ED NOTE HNO ID: [id number] Author: DENNIS CAMARGO RN Service: ? Author Type: Registered Nurse Type: ED Notes Filed: 06/22/2023 22:17 Note Text: Patient given verbal and written D/C instructions. Medications and follow up care discussed. Instructed to return to ED if conditions and symptoms persist or worsen. All questions addressed and answered pt verbalized understanding. [facility] Normal [facility] HAV IgM Ser Qlon 06-23-2023 HAV IgM Ql (S) Negative Normal Negative [facility] Comment on above: Order Comment: Speci men Type: BLOOD SPECIMENOrdering Facility: [facility] Address: [address] [place] [address] Result Comment: No e vidence of recent infection with Hepatitis A virus. Performed By: #### 3 1204-1, 5195-3, 94086-4 ####[facility] LABCLIA [id number] [place] [address] [place] HBV core IgM Ser Qlon 2023 HBV core IgM Ql (S) Negative Normal Negative [facility] Comment on above: Order Comment: Speci zoraida Type: BLOOD SPECIMENOrdering Facility: [facility] Address: [address] [place] [address] Result Comment: No e vidence of recent infection with Hepatitis B virus. Should recent infection be suspected, repeat testing may be considered 3-4 weeks after this draw. Performed By: #### 3 1204-1, 5-3, 05102-4 ####[facility] LABCLIA [id number] [place] [address] [place] HBV surface Ag Ser Qlon 06-13 HBV surface Ag Ql (S) Negative Normal Negative [facility] Comment on above: Order Comment: Samiai zoraida Type: BLOOD SPECIMENOrdering Facility: [facility] Address: [address] [place] [address] Performed By: #### 3 1204-1, 5195-3, 03937-8 ####[facility] LABCLIA [id number] [address] [id number] [place] [address] [place] HCV RNA SerPl SENAIT+probe-[facility] on 06-23-2023 HCV RNA SENAIT+probe Qn Not detected Normal HCV RNA not detected by PCR. [facility] Comment on above: Order Comment: Speci men Type: BLOOD SPECIMEN Ordering Facility: [facility] Address: [address] [place] [address] Performed By: #### 1 1011-4 #### [facility] LAB CLIA [id number] [facility] [address] [place] ALLIED HEALTHon 06-22-2023 ALLIED HEALTH HNO ID: [id number] Author: SELENA AMADOR RT(R) Service: Radiology Author [...] PERIPHERAL IV DATA: Inpatient - refer to [facility] documentation RADIOLOGY DEPARTMENT: CT; Exam(s) Completed: Abdomen/Pelvis SIGNATURE: RT Jose(R) PATIENT NAME: Livia Noyola DATE: June 22, 2023 TIME: 7:46 PM [facility] HNO ID: [id number] Author: DELLA BEST RDMS, RVT Service: Radiology Author Type: Break Out Worker Type: Allied Health Filed: 06/22/2023 18:55 Note [...] Not applicable SIGNED BY: Della Best RDMS, CARLOST June 22, 2023 6:55 PM [facility] CBC W Auto Differential pane l (Bld)on 06-22-2023 Basophils (Bld) [#/Vol] 0.03 10*3/uL Normal <0.11 [facility] Comment on above: Order Comment: Speci men Type: BLOOD SPECIMENOrdering Facility: [facility] Address: [address] [place] [address] Performed By: #### 5 7021-8 ####[facility]ORY[facility] [id number] [address] [place] [address] [place] Basophils/100 WBC (Bld) 0.6 % Normal [facility] Comment on above: Order Comment: Speci men Type: BLOOD SPECIMENOrdering Facility: [facility] Address: [address] [place] [address] Performed By: #### 5 7021-8 ####[facility]ORY[facility] [id number] [address] [place], [place] [id number] [place] Differential cell count method Nom (Bld) Auto [facility] Comment on above: Order Comment: Speci men Type: BLOOD SPECIMENOrdering Facility: [facility] Address: [address] [place] [address] Performed By: #### 5 7021-8 ####[facility]TISM LABORATORYCLIA [id number] [place] [address] [place] Eosinophils (Bld) [#/Vol] 0.03 10*3/uL Normal <0.46 [facility] [place] Comment on above: Order Comment: Speci men Type: BLOOD SPECIMENOrdering Facility: [facility] [place] Address: [address] [place] [address] Performed By: #### 5 7021-8 ####[facility]ISM LABORATORYCLIA [id number] [address] [place] Eosinophils/100 WBC (Bld) 0.6 % [facility] Comment on above: Order Comment: Speci men Type: BLOOD SPECIMENOrdering Facility: [facility] [place] Address: [address] [place] [address] Performed By: #### 5 7021-8 ####[facility]ISM LABORATORYCLIA [id number] [place] [address] [place] Erythrocyte distribution width (RBC) [Ratio] 16.5 % High 11.5-15.0 [facility] [place] Comment on above: Order Comment: Speci men Type: BLOOD SPECIMENOrdering Facility: [facility] [place] Address: [address] [place] [address] Performed By: #### 5 7021-8 ####[facility]ISM LABORATORYCLIA [id number] [address] [place] [address] [place] Hematocrit (Bld) [Volume fraction] 37.7 % Normal 36.0-46.0 [facility] [place] Comment on above: Order Comment: Speci men Type: BLOOD SPECIMENOrdering Facility: [facility] [place] Address: [address] [place] [address] Performed By: #### 5 7021-8 ####[facility]ISM LABORATORYCLIA [id number] [address] [place] [address] [place] Hemoglobin (Bld) [Mass/Vol] 11.7 g/dL Normal 11.5-15.5 [facility] [place] Comment on above: Order Comment: Speci men Type: BLOOD SPECIMENOrdering Facility: [facility] [place] Address: [address] [place] [address] Performed By: #### 5 7021-8 ####ANABAPTISM LABORATORYCLIA [id number] [place] [id number] [place] Immature granulocytes (Bld) [#/Vol] 10*3/uL Normal <0.10 [facility] [place] Comment on above: Order Comment: Speci men Type: BLOOD SPECIMENOrdering Facility: [facility] [place] Address: [address] [place] [address] Performed By: #### 5 7021-8 ####ANABAPTISM LABORATORYCLIA [id number] [address] [place] Immature granulocytes/100 WBC (Bld) 0.4 % Normal [facility] [place] Comment on above: Order Comment: Speci men Type: BLOOD SPECIMENOrdering Facility: [facility] [place] Address: [address] [place] [address] Performed By: #### 5 7021-8 ####ANA[facility]APTISM LABORATORYCLIA [id number] [place] [address] [place] Lymphocytes (Bld) [#/Vol] 1.87 10*3/uL Normal 1.00-4.00 [facility] [place] Comment on above: Order Comment: Speci men Type: BLOOD SPECIMENOrdering Facility: [facility] [place] Address: [address] [place] [address] Performed By: #### 5 7021-8 ####ANABAPTISM LABORATORYCLIA [id number] [address] [place], [place] [address] [place] Lymphocytes/100 WBC (Bld) 34.4 % Normal [facility] [place] Comment on above: Order Comment: Speci men Type: BLOOD SPECIMENOrdering Facility: [facility] [place] Address: [address] [place] [address] Performed By: #### 5 7021-8 ####ANABAPTISM LABORATORYCLIA [id number] [address] [place] [address] [place] MCH (RBC) [Entitic mass] 24.5 pg Low 26.0-34.0 [facility] [place] Comment on above: Order Comment: Speci men Type: BLOOD SPECIMENOrdering Facility: [facility] [place] Address: [address] [place] [address] Performed By: #### 5 7021-8 ####ANABAPTISM LABORATORYCLIA [id number] [address] [place] [address] [place] MCHC (RBC) [Mass/Vol] 31.0 g/dL Normal 30.5-36.0 [facility] Comment on above: Order Comment: Speci men Type: BLOOD SPECIMENOrdering Facility: [facility] [place] Address: [address] [place] [address] Performed By: #### 5 7021-8 ####ANABAPTISM LABORATORYCLIA [id number] [place] [address] [place] MCV (RBC) [Entitic vol] 79.0 fL Low 80.0-100.0 L [facility] Comment on above: Order Comment: Speci men Type: BLOOD SPECIMENOrdering Facility: [facility] [place] Address: [address] [place] [address] Performed By: #### 5 7021-8 ####ANABAPTISM LABORATORYCLIA [id number] [address] [place] Monocytes (Bld) [#/Vol] 0.25 10*3/uL Normal <0.87 [facility] [place] Comment on above: Order Comment: Speci men Type: BLOOD SPECIMENOrdering Facility: [facility] [place] Address: [address] [place] [address] Performed By: #### 5 7021-8 ####ANAB[facility]TISM LABORATORYCLIA [id number] [address] [place] [address] [place] Monocytes/100 WBC (Bld) 4.6 % Normal [facility] Comment on above: Order Comment: Speci men Type: BLOOD SPECIMENOrdering Facility: [facility] [place] Address: [address] [place] [address] Performed By: #### 5 7021-8 ####[facility]TISM LABORATORYCLIA [id number] [address] [place] [address] [place] Neutrophils (Bld) [#/Vol] 3.23 10*3/uL Normal 1.45-7.50 [facility] [place] Comment on above: Order Comment: Speci men Type: BLOOD SPECIMENOrdering Facility: [facility] [place] Address: [address] [place] [address] Performed By: #### 5 7021-8 ####ANA[facility]TISM LABORATORYCLIA [id number] [address] [place] Neutrophils/100 WBC (Bld) 59.4 % Normal [facility] [place] Comment on above: Order Comment: Speci men Type: BLOOD SPECIMENOrdering Facility: [facility] [place] Address: [address] [place] [address] Performed By: #### 5 7021-8 ####ANA[facility]ISM LABORATORYCLIA [id number] [address] [place] [address] [place] Nucleated RBC (Bld) [#/Vol] 10*3/uL Normal <0.01 [facility] [place] Comment on above: Order Comment: Speci men Type: BLOOD SPECIMENOrdering Facility: [facility] [place] Address: [address] [place] [address] Performed By: #### 5 7021-8 ####[facility]TISM LABORATORYCLIA [id number] [address] [place] [address] [place] Nucleated RBC/100 WBC (Bld) [Ratio] 0.0 /100 WBC Normal [facility] [place] Comment on above: Order Comment: Speci men Type: BLOOD SPECIMENOrdering Facility: [facility] [place] Address: [address] [place] [address] Performed By: #### 5 7021-8 ####ANA[facility] LABORATORYCLIA [id number] [address] [place] [address] [place] Platelet mean volume (Bld) [Entitic vol] 9.4 fL Normal 9.0-12.7 [facility] [place] Comment on above: Order Comment: Speci men Type: BLOOD SPECIMENOrdering Facility: [facility] [place] Address: [address] [place] [address] Performed By: #### 5 7021-8 ####[facility]ISM LABORATORYCLIA [id number] [place] [address] [place] Platelets (Bld) [#/Vol] 486 10*3/uL High 150-400 [facility] [place] Comment on above: Order Comment: Speci men Type: BLOOD SPECIMENOrdering Facility: [facility] [place] Address: [address] [place] [address] Performed By: #### 5 7021-8 ####[facility]ISM LABORATORYCLIA [id number] [place] [address] [place] RBC (Bld) [#/Vol] 4.77 10*6/uL Normal 3.90-5.20 [facility] Comment on above: Order Comment: Speci men Type: BLOOD SPECIMENOrdering Facility: [facility] [place] Address: [address] [place] [address] Performed By: #### 5 7021-8 ####[facility] LABORATORYCLIA [id number] [place] [address] [place] WBC (Bld) [#/Vol] 5.43 10*3/uL Normal 3.70-11.00 [facility] Comment on above: Order Comment: Speci men Type: BLOOD SPECIMENOrdering Facility: [facility] [place] Address: [address] [place] [address] Performed By: #### 5 7021-8 ####[facility] LABORATORYCLIA [id number] [place] [address] [place] CT ABD/PEL W [...] Tissues: No significant finding. Lower thorax: Unremarkable. Joint Finisher (topogram) images: Unremarkable. IMPRESSION: No acute intra-abdominal or pelvic process identified. Independent Agent Music Education: PSCB Transcribe Date/Time: Jun 22 2023 8:25P Dictated by : CHAD SCHILLING MD This examination was interpreted and the report reviewed and electronically signed by: CHAD SCHILLING MD on Jun 22 2023 8:29PM EST [id number] CN Normal [facility] Comprehensive metabolic 2000 panelon 06-22-2023 Albumin [Mass/Vol] 4.8 g/dL Normal 3.9-4.9 [facility] Comment on above: Order Comment: Speci men Type: BLOOD SPECIMENOrdering Facility: [facility] [place] Address: [address] [place] [address] Performed By: #### 2 4323-8, 3040-3, ####[facility]TISM LABORATORYCLIA [id number] [address] [place], [place] [address] [place] ALP [Catalytic activity/Vol] 108 U/L Normal 34-123 [facility] [place] Comment on above: Order Comment: Speci men Type: BLOOD SPECIMENOrdering Facility: [facility] [place] Address: [address] [place] [address] Performed By: #### 2 4323-8, 3040-3, ####[facility] LABORATORYCLIA [id number] [address] [place], [place] [address] [place] ALT [Catalytic activity/Vol] 63 U/L High 7-38 [facility] [place] Comment on above: Order Comment: Speci men Type: BLOOD SPECIMENOrdering Facility: [facility] [place] Address: [address] [place] [address] Performed By: #### 2 4323-8, 3039-3, ####[facility] LABORATORYCLIA [id number] [address] [place], [place] [address] [place] Anion gap [Moles/Vol] 13 mmol/L Normal 9-18 [facility] Comment on above: Order Comment: Speci men Type: BLOOD SPECIMENOrdering Facility: [facility] [place] Address: [address] [place] [address] Performed By: #### 2 4323-8, 0-3, ####[facility] LABORATORYCLIA [id number] [address] [place], [place] [address] [place] AST [Catalytic activity/Vol] 109 U/L High 13-35 [facility] [place] Comment on above: Order Comment: Speci men Type: BLOOD SPECIMENOrdering Facility: [facility] [place] Address: [address] [place] [address] Performed By: #### 2 4323-8, 3040-3, ####[facility] LABORATORYCLIA [id number] [address] [place], [place] [address] [place] Bilirubin [Mass/Vol] 0.4 mg/dL Normal 0.2-1.3 [facility] Comment on above: Order Comment: Speci men Type: BLOOD SPECIMENOrdering Facility: [facility] [place] Address: [address] [place] [address] Performed By: #### 2 4323-8, 3039-3, ####ANABAPTISM LABORATORYCLIA [id number] [address] [place], [place] [address] [place] Calcium [Mass/Vol] 9.6 mg/dL Normal 8.5-10.2 [facility] Comment on above: Order Comment: Speci men Type: BLOOD SPECIMENOrdering Facility: [facility] [place] Address: [address] [place] [address] Performed By: #### 2 4323-8, 3, ####ANA[facility] LABORATORYCLIA [id number] [place] [address] [place] Chloride [Moles/Vol] 102 mmol/L Normal 97-105 [facility] Comment on above: Order Comment: Speci men Type: BLOOD SPECIMENOrdering Facility: [facility] [place] Address: [address] [place] [address] Performed By: #### 2 4323-8, 3, ####ANA[facility] LABORATORYCLIA [id number] [place] [address] [place] CO2 [Moles/Vol] 23 mmol/L Normal 22-30 [facility] [place] Comment on above: Order Comment: Speci men Type: BLOOD SPECIMENOrdering Facility: [facility] [place] Address: [address] [place] [address] Performed By: #### 2 4323-8, 3, ####ANA[facility] LABORATORYCLIA [id number] [place] [address] [place] Creatinine [Mass/Vol] 0.64 mg/dL Normal 0.58-0.96 [facility] Comment on above: Order Comment: Speci men Type: BLOOD SPECIMENOrdering Facility: [facility] [place] Address: [address] [place] [address] Performed By: #### 2 4323-8, 3040-3, 18770-4 ####ANA[facility]TISM LABORATORYCLIA [id number] [place] [address] [place] Creatinine and Glomerular filtration rate.predicted panel (S/P/Bld) 118 mL/min/1.73m??? Normal >=60 [facility] [place] Comment on above: Order Comment: Roselyn conway Type: BLOOD SPECIMENOrdering Facility: [facility] [place] Address: [address] [place] [address] Result Comment: Shelley mated Glomerular Filtration Rate [...] GFR. Performed By: #### 2 4323-8, 3040-3, 08699-4 ####ANABAPTISM LABORATORYCLIA [id number] [place] [address] [place] Glucose [Mass/Vol] 102 mg/dL High 74-99 [facility] Comment on above: Order Comment: Roselyn conway Type: BLOOD SPECIMENOrdering Facility: [facility] [place] Address: [address] [place] [address] Result Comment: The [place] [employer] (ADA) provides guidance for cutoff [...] Standards of Medical Care in Diabetes 2016, [place] [employer]. Diabetes Care. 2016.39(Suppl 1). Performed By: #### 2 4323-8, 3040-3, 09308-4 ####ANABAPTISM LABORATORYCLIA [id number] [address] [place], [place] [address] [place] Potassium [Moles/Vol] 3.8 mmol/L Normal 3.7-5.1 [facility] Comment on above: Order Comment: Speci men Type: BLOOD SPECIMENOrdering Facility: [facility] [place] Address: [address] [place] [address] Performed By: #### 2 4323-8, 3040-3, ####ANA[facility] LABORATORYCLIA [id number] [place] [address] [place] Protein [Mass/Vol] 8.2 g/dL High 6.3-8.0 [facility] Comment on above: Order Comment: Speci men Type: BLOOD SPECIMENOrdering Facility: [facility] [place] Address: [address] [place] [address] Performed By: #### 2 4323-8, 3039-3, ####[facility] LABORATORYCLIA [id number] [place] [address] [place] Sodium [Moles/Vol] 138 mmol/L Normal 136-144 [facility] Comment on above: Order Comment: Speci men Type: BLOOD SPECIMENOrdering Facility: [facility] [place] Address: [address] [place] [address] Performed By: #### 2 4323-8, 3039-3, ####ANA[facility] LABORATORYCLIA [id number] [place] [address] [place] Urea nitrogen [Mass/Vol] 8 mg/dL Normal 7-21 [facility] [place] Comment on above: Order Comment: Speci men Type: BLOOD SPECIMENOrdering Facility: [facility] [place] Address: [address] [place] [address] Performed By: #### 2 4323-8, 0-3, ####ANABAPTISM LABORATORYCLIA [id number] [address] [place], [place] [address] [place] ECG COMPLETEon 06-22-2023 ECG COMPLETE Ventricular Rate : 105 BPM Atrial Rate : 103 BPM P-R Interval : 152 ms QRS Duration : 77 ms Q-T Interval : 324 ms QTC Calculation(Bazett) : 429 ms Calculated P [place] : 42 degrees Calculated R [place] : 56 degrees Calculated T [place] : 49 degrees Sinus tachycardia Low voltage, precordial leads Anteroseptal infarct, old Abnormal ECG no stemi 1814 Confirmed by MD SEN BRENT ([id number]), visual effects editor STEPHENIE ERIC ([id number]) on 06/23/2023 12:09:36 PM NAME : LIVIA NOYOLA PID : [id number] : 1985 Gender : Female Race : ORD : [id number] Procedure Date : Jun 22 2023 18:10:13 Edit Date : Jun 23 2023 12:09:40 Diagnosis: Sinus tachycardia Low voltage, precordial leads Anteroseptal infarct, old Abnormal ECG no stemi 1814 Confirmed by MD SEN BRENT ([id number]), visual effects editor STEPHENIE ERIC (1940) on 06/23/2023 12:09:36 PM Test Reason : Tachycardia Location : 502 : [facility] ED Overread By : MD SEN BRENT Edited By : STEPHENIE ERIC Referred By : , Acquired by : DAVID [facility] ED NOTEon 06-22-2023 ED NOTE HNO ID: [id number] Author: DENNIS CAMARGO RN Service: ? Author Type: Registered Nurse Type: ED Notes Filed: 06/22/2023 21:56 Note Text: Assumed care of pt at this time and received report from previous RN. [facility] ED NOTE HNO ID: [id number] Author: MATILDE DAVIS RN Service: Nursing Author Type: Registered Nurse Type: ED Notes Filed: 06/22/2023 17:38 Note Text: Pt presents with LLQ pain that radiates to back that began this morning but worsened one hour prior to arrival. Denies urinary complaints. [facility] ED PROV NOTEon 06-22-2023 ED PROV NOTE HNO ID: [id number] Author: EVGENY SEN MD Service: Emergency Medicine [...] with some relief. History provided by: Patient developmental specialist used: No PAST MEDICAL HISTORY Diagnosis [...] Hyperlipidemia Father Heart Father bypass surgery, stents, [place] Social History Tobacco Use Smoking status: Never [...] 1736 06/22/23 1734 06/22/23 1734 06/22/23 1734 [id number] -- 159/94 (!) 128 36.2 ?C (97.2 [...] Ref Range (more content not included)... Normal [facility] ED Triage Noteon 06-22-2023 ED Triage Note HNO ID: [id number] Author: TABBY LUCIANO PA-C Service: ? Author Type: Physician Tool Turret Lathe Set Up Operator Type: ED Triage Notes [...] treating team. SIGNATURE: Tabby Luciano PA-C Normal [facility] HCG Preg Ur Qlon 06-22-2023 HCG ( test) Ql (U) Negative Normal Negative [facility] Comment on above: Order Comment: Speci men Type: URINE SPECIMENOrdering Facility: [facility] [place] Address: [address] [place] [address] Result Comment: This test is intended to aid in the early detection of . Very dilute urine samples, as indicated by a low specific gravity, may not contain housing management representative levels of hCG. This test detects [...] for . Performed By: #### 2 106-3 ####ANABAPTISM LABORATORYCLIA [id number] [place] [id number] [place] Lipase SerPl-cCncon 06-22-19 24 Lipase [Catalytic activity/Vol] 34 U/L Normal 16-61 [facility] Comment on above: Order Comment: Speci men Type: BLOOD SPECIMENOrdering Facility: [facility] [place] Address: [address] [place] [address] Performed By: #### 2 4323-8, 3040-3, 38566-4 ####ANABAPTISM LABORATORYCLIA [id number] [place] [id number] [place] Magnesium SerPl-mCncon 06-22 Magnesium [Mass/Vol] 2.2 mg/dL Normal 1.7-2.3 [facility] Comment on above: Order Comment: Speci [facility] Type: BLOOD SPECIMENOrdering Facility: [facility] [place] Address: [address] [place] [address] Performed By: #### 2 4323-8, 3040-3, 12996-0 ####ANABAPTISM LABORATORYCLIA [id number] [place] [id number] [place] US DOPPLER COMPLETEon [...] and stored in a permanent archive. MQ: [facility]_2021 COMPARISON: None RESULT: Uterus: -Size: [...] Normal sonographic appearance of the female pelvis. Independent Agent Music Education: ANTONIO Transcribe Date/Time: Jun 22 2023 7:44P Dictated by : Vasu BURNS MD This examination was interpreted and the report reviewed and electronically signed by: Vasu BURNS MD on Jun 22 2023 7:48PM EST [id number] [facility] FEMALE PELVIS TRANSABD LT Don 06-22-2023 FEMALE PELVIS TRANSABD LTD * * *Final Report* * * DATE OF EXAM: Jun 22 2023 6:54PM [facility] 1059 - US FEMALE PELVIS TRANSABD LTD [...] Normal sonographic appearance of the female pelvis. Independent Agent Music Education: ANTONIO Transcribe Date/Time: Jun 22 2023 7:44P Dictated by : Vasu BURNS MD This examination was interpreted and the report reviewed and electronically signed by: Vasu BURNS MD on Jun 22 2023 7:48PM EST [id number] CN [facility] US FEMALE PELVIS TRANSVAGon 06-22-2023 US [...] and stored in a permanent archive. MQ: COMPARISON: None RESULT: Uterus: -Size: 8.1 x [...] Normal sonographic appearance of the female pelvis. Independent Agent Music Education: ANTONIO Transcribe Date/Time: Jun 22 2023 7:44P Dictated by : Vasu BURNS MD This examination was interpreted and the report reviewed and electronically signed by: Vasu BURNS MD on Jun 22 2023 7:48PM EST [id number] CN [facility] Urinalysis complete panel (U )on 06-22-2023 Bacteria LM.HPF (Urine sed) [#/Area] Few Abnormal None Seen [facility] Comment on above: Order Comment: Speci men Type: URINE SPECIMENOrdering Facility: [facility] [place] Address: [address] [place] [address] Performed By: #### 2 4356-8 ####ANABAPTISM LABORATORYCLIA [id number] [place] [id number] [place] Bilirubin Ql (U) Negative Normal Negative [facility] Comment on above: Order Comment: Speci men Type: URINE SPECIMENOrdering Facility: [facility] [place] Address: [address] [place] [address] Performed By: #### 2 4356-8 ####ANABAPTISM LABORATORYCLIA [id number] [address] [place] [address] [place] Clarity (Unsp spec) Clear Normal Clear [facility] Comment on above: Order Comment: Speci men Type: URINE SPECIMENOrdering Facility: [facility] [place] Address: [address] [place] [address] Performed By: #### 2 4356-8 ####ANABAPTISM LABORATORYCLIA [id number] [address] [place] Color (U) Yellow Normal Yellow [facility] Comment on above: Order Comment: Speci men Type: URINE SPECIMENOrdering Facility: [facility] [place] Address: [address] [place] [address] Performed By: #### 2 4356-8 ####ANABAPTISM LABORATORYCLIA [id number] [address] [place], [place] [address] [place] Epithelial cells LM.HPF (Urine sed) [#/Area] Few Normal [facility] Comment on above: Order Comment: Speci men Type: URINE SPECIMENOrdering Facility: [facility] [place] Address: [address] [place] [address] Performed By: #### 2 4356-8 ####[facility] LABORATORYCLIA [id number] [place] [id number] [place] Glucose Test strip (U) [Mass/Vol] Negative Normal Negative [facility] [place] Comment on above: Order Comment: Speci men Type: URINE SPECIMENOrdering Facility: [facility] [place] Address: [address] [place] [address] Performed By: #### 2 4356-8 ####[facility] LABORATORYCLIA [id number] [address] [place] Hemoglobin Ql (U) Negative Normal Negative [facility] Comment on above: Order Comment: Speci men Type: URINE SPECIMENOrdering Facility: [facility] [place] Address: [address] [place] [address] Performed By: #### 2 4356-8 ####[facility] LABORATORYCLIA [id number] [address] [place] [address] [place] Ketones Ql (U) Trace Abnormal Negative [facility] [place] Comment on above: Order Comment: Speci men Type: URINE SPECIMENOrdering Facility: [facility] [place] Address: [address] [place] [address] Performed By: #### 2 4356-8 ####[facility] LABORATORYCLIA [id number] [place] [address] [place] Leukocyte esterase Test strip Ql (U) Negative Normal Negative [facility] Comment on above: Order Comment: Speci men Type: URINE SPECIMENOrdering Facility: [facility] [place] Address: [address] [place] [address] Performed By: #### 2 4356-8 ####[facility] LABORATORYCLIA [id number] [address] [place] Nitrite Ql (U) Negative Normal Negative [facility] Comment on above: Order Comment: Speci men Type: URINE SPECIMENOrdering Facility: [facility] [place] Address: [address] [place] [address] Performed By: #### 2 4356-8 ####[facility] LABORATORYCLIA [id number] [address] [place] pH (U) 6.5 [pH] Normal 5.0-8.0 [facility] [place] Comment on above: Order Comment: Speci men Type: URINE SPECIMENOrdering Facility: [facility] [place] Address: [address] [place] [address] Performed By: #### 2 4356-8 ####[facility] LABORATORYCLIA [id number] [address] [place] [address] [place] Protein (U) [Mass/Vol] Negative Normal Negative [facility] Comment on above: Order Comment: Speci men Type: URINE SPECIMENOrdering Facility: [facility] [place] Address: [address] [place] [address] Performed By: #### 2 4356-8 ####[facility] LABORATORYCLIA [id number] [address] [place] [address] [place] RBC LM.HPF (Urine sed) [#/Area] 0-3 /HPF Normal 0-3 /HPF [facility] [place] Comment on above: Order Comment: Speci men Type: URINE SPECIMENOrdering Facility: [facility] [place] Address: [address] [place] [address] Performed By: #### 2 4356-8 ####[facility] LABORATORYCLIA [id number] [place] [address] [place] Specific gravity (U) [Rel density] 1.020 Normal 1.005-1.030 [facility] [place] Comment on above: Order Comment: Speci men Type: URINE SPECIMENOrdering Facility: [facility] [place] Address: [address] [place] [address] Performed By: #### 2 4356-8 ####[facility] LABORATORYCLIA [id number] [address] [place] Urobilinogen Ql (U) 1.0 EU/dL Normal 0.2-1.0 EU/dL [facility] [place] Comment on above: Order Comment: Speci men Type: URINE SPECIMENOrdering Facility: [facility] [place] Address: [address] [place] [address] Performed By: #### 2 4356-8 ####[facility] LABORATORYCLIA [id number] [address] [place] [address] [place] WBC LM.HPF (Urine sed) [#/Area] 0-5 /HPF Normal 0-5 /HPF [facility] [place] Comment on above: Order Comment: Speci men Type: URINE SPECIMENOrdering Facility: [facility] [place] Address: [address] [place] [address] [place] [address] Performed By: #### 2 4356-8 ####[facility]ORATORYWH[facility] [id number] [address] [address] [place] Basic Metabolic Profon 05-30 Anion gap [Moles/Vol] 12 mmol/L Normal 9-17 [facility] Comment on above: Performed By: #### B MP, LIP, LIVP, CDP, HCG #### [facility] [address] [place] [address] Senior Electrical Designer: Jennifer Freire MD BUN/CRE Ratio 7 Low 9-20 [facility] Comment on above: Performed By: #### B MP, LIP, LIVP, CDP, HCG #### [facility] [address] [place] [address] Senior Electrical Designer: Jennifer Freire MD Calcium [Mass/Vol] 9.8 mg/dL Normal 8.6-10.4 [facility] Comment on above: Performed By: #### B MP, LIP, LIVP, CDP, HCG #### [facility] [address] [place] [address] Senior Electrical Designer: Jennifer Freire MD Chloride [Moles/Vol] 99 mmol/L Normal 98-107 [facility] Comment on above: Performed By: #### B MP, LIP, LIVP, CDP, HCG #### [facility] [address] [place], [place] 4286[address] Senior Electrical Designer: Jennifer Freire MD CO2 [Moles/Vol] 24 mmol/L Normal 20-31 [facility] Comment on above: Performed By: #### B MP, LIP, LIVP, CDP, HCG #### [facility] [address] [place], [place] 0740[address] Senior Electrical Designer: Jennifer Freire MD Creatinine [Mass/Vol] 0.7 mg/dL Normal 0.5-0.9 [facility] Comment on above: Performed By: #### B MP, LIP, LIVP, CDP, HCG #### [facility] [address] [place] [id number] Senior Electrical Designer: Jennifer Freire MD GFR/1.73 sq M.predicted among non-blacks MDRD (S/P/Bld) [Vol rate/Area] mL/min/{1.73_m2} Normal >60 [facility] Comment on above: Result Comment: [...] B MP, LIP, LIVP, CDP, HCG #### [facility] [address] [place] [address] Senior Electrical Designer: Jennifer Freire MD Glucose [Mass/Vol] 97 mg/dL Normal 70-99 [facility] Comment on above: Performed By: #### B MP, LIP, LIVP, CDP, HCG #### [facility] [address] [place] [address] Senior Electrical Designer: Jennifer Freire MD Potassium [Moles/Vol] 3.9 mmol/L Normal 3.7-5.3 [facility] Comment on above: Performed By: #### B MP, LIP, LIVP, CDP, HCG #### [facility] [address] [place] [address] Senior Electrical Designer: Jennifer Freire MD Sodium [Moles/Vol] 135 mmol/L Normal 135-144 [facility] Comment on above: Performed By: #### B MP, LIP, LIVP, CDP, HCG #### [facility] [address] [place] [phone] Senior Electrical Designer: Jennifer Freire MD Urea nitrogen [Mass/Vol] 5 mg/dL Low 6-20 [facility] Comment on above: Performed By: #### B MP, LIP, LIVP, CDP, HCG #### [facility] [address] [place] [address] Senior Electrical Designer: Jennifer Freire MD CBC with Diffon 05-30-2023 Abs. Basophil 0.02 k/uL Normal 0.00-0.20 [facility] Comment on above: Performed By: #### B MP, LIP, LIVP, CDP, HCG #### [facility] [address] [place] [address] Senior Electrical Designer: Jennifer Freire MD Abs.Imm.Granulocyte 0.00 k/uL Normal 0.00-0.30 [facility] Comment on above: Performed By: #### B MP, LIP, LIVP, CDP, HCG #### [facility] [address] [place] [address] Senior Electrical Designer: Jennifer Freire MD Abs.Neutrophil (Seg) 2.21 k/uL Low 2.5-7.0 [facility] Comment on above: Performed By: #### B MP, LIP, LIVP, CDP, HCG #### [facility] [address] [place] [address] Senior Electrical Designer: Jennifer Freire MD Basophils/100 WBC (Bld) 0 % Normal 0-[address] [facility] Comment on above: Performed By: #### B MP, LIP, LIVP, CDP, HCG #### [facility] [address] [place] [address] Senior Electrical Designer: Jennifer Freire MD Eosinophils (Bld) [#/Vol] 0.05 10*3/uL Normal 0.00-0.40 [facility] Comment on above: Performed By: #### B MP, LIP, LIVP, CDP, HCG #### [facility] [address] [place] [address] Senior Electrical Designer: Jennifer Freire MD Eosinophils/100 WBC (Bld) 1 % Normal 0-5 [facility] Comment on above: Performed By: #### B MP, LIP, LIVP, CDP, HCG #### [facility] [address] [place] [address] Senior Electrical Designer: Jennifer Freire MD Erythrocyte distribution width (RBC) [Ratio] 16.5 % High 12.1-15.2 [facility] Comment on above: Performed By: #### B MP, LIP, LIVP, CDP, HCG #### [facility] [address] [place] [address] Senior Electrical Designer: Jennifer Freire MD Hematocrit (Bld) [Volume fraction] 37.2 % Normal 36.0-46.0 [facility] Comment on above: Performed By: #### B MP, LIP, LIVP, CDP, HCG #### [facility] [address] [place] [id number] Senior Electrical Designer: Jennifer Freire MD Hemoglobin (Bld) [Mass/Vol] 11.7 g/dL Low 12.0-16.0 [facility] Comment on above: Performed By: #### B MP, LIP, LIVP, CDP, HCG #### [facility] [address] [place] [address] Senior Electrical Designer: Jennifer Freire MD Immature granulocytes/100 WBC (Bld) 0 % Normal 0-5 [facility] Comment on above: Performed By: #### B MP, LIP, LIVP, CDP, HCG #### [facility] [address] [place] [address] Senior Electrical Designer: Jennifer Freire MD Lymphocytes (Bld) [#/Vol] 2.45 10*3/uL Normal 1.00-4.80 [facility] Comment on above: Performed By: #### B MP, LIP, LIVP, CDP, HCG #### [facility] [address] [place] [address] Senior Electrical Designer: Jennifer Freire MD Lymphocytes/100 WBC (Bld) 48 % High 15-40 [facility] Comment on above: Performed By: #### B MP, LIP, LIVP, CDP, HCG #### [facility] [address] [place] [id number] Senior Electrical Designer: Jennifer Freire MD MCH (RBC) [Entitic mass] 24.2 pg Low 26.0-34.0 [facility] Comment on above: Performed By: #### B MP, LIP, LIVP, CDP, HCG #### [facility] [address] [place] [address] Senior Electrical Designer: Jennifer Freire MD MCHC (RBC) [Mass/Vol] 31.5 g/dL Normal 31.0-37.0 [facility] Comment on above: Performed By: #### B MP, LIP, LIVP, CDP, HCG #### [facility] [address] [place] [id number] Senior Electrical Designer: Jennifer Freire MD MCV (RBC) [Entitic vol] 76.9 fL Low 80.0-100.0 [facility] Comment on above: Performed By: #### B MP, LIP, LIVP, CDP, HCG #### [facility] [address] [place] [address] Senior Electrical Designer: Jennifer Freire MD Monocytes (Bld) [#/Vol] 0.37 10*3/uL Normal 0.00-1.00 [facility] Comment on above: Performed By: #### B MP, LIP, LIVP, CDP, HCG #### [facility] [address] [place] [id number] Senior Electrical Designer: Jennifer Freire MD Monocytes/100 WBC (Bld) 7 % Normal 4-[address] [facility] Comment on above: Performed By: #### B MP, LIP, LIVP, CDP, HCG #### [facility] [address] [place], [place] [phone] (720) Senior Electrical Designer: Jennifer Freire MD Neutrophil (Seg) 43 % Low 47-75 [facility] Comment on above: Performed By: #### B MP, LIP, LIVP, CDP, HCG #### [facility] [address] [place], [place] [phone] (114) Senior Electrical Designer: Jennifer Freire MD Platelet mean volume (Bld) [Entitic vol] 8.7 fL Normal 6.0-12.0 [facility] Comment on above: Performed By: #### B MP, LIP, LIVP, CDP, HCG #### [facility] [address] [place], [place] [phone] (790) Senior Electrical Designer: Jennifer Freire MD Platelets (Bld) [#/Vol] 512 10*3/uL High 140-450 [facility] Comment on above: Performed By: #### B MP, LIP, LIVP, CDP, HCG #### [facility] [address] [place] [address] (066) Senior Electrical Designer: Jennifer Freire MD RBC (Bld) [#/Vol] 4.84 10*6/uL Normal 4.00-5.20 [facility] Comment on above: Performed By: #### B MP, LIP, LIVP, CDP, HCG #### [facility] [address] [place], [place] [phone] (782) Senior Electrical Designer: Jennifer Freire MD WBC (Bld) [#/Vol] 5.1 10*3/uL Normal 3.5-11.0 [facility] Comment on above: Performed By: #### B MP, LIP, LIVP, CDP, HCG #### [facility] [address] [place] [address] (249) Senior Electrical Designer: Jennifer Freire MD CT ABDOMEN PELVIS W [...] Marilyn Narvaez MD 05/30/23 Final result Normal [facility] HCG Screen, Bloodon 05-30-20 HCG Screen, Blood Negative Normal NEG [facility] Comment on above: Result Comment: Spec imens with hCG levels near the threshold of the test (25 mIU/mL) may give a negative or indeterminate result. In such cases, another test should be performed with a new specimen in 48-72 hours. If early is suspected clinically in this setting, correlation with quantitative serum b-hCG level is suggested. [facility] has confirmed the use of plasma for this test. This has not been cleared or approved by the U.S. Food and Drug Administration. The FDA has determined that such clearance is not necessary. Performed By: #### B MP, LIP, LIVP, CDP, HCG #### [facility] [address] [place] [address] Senior Electrical Designer: Jennifer Freire MD Lipaseon 05-30-2023 Lipase [Catalytic activity/Vol] 28 U/L Normal 13-60 [facility] Comment on above: Performed By: #### B MP, LIP, LIVP, CDP, HCG #### [facility] [address] [place], [place] [phone] Senior Electrical Designer: Jennifer Freire MD Liver Profileon 05-30-2023 Albumin [Mass/Vol] 4.3 g/dL Normal 3.5-5.2 [facility] Comment on above: Performed By: #### B MP, LIP, LIVP, CDP, HCG #### [facility] [address] [place], [place] [phone] Senior Electrical Designer: Jennifer Freire MD Alkaline Phos 86 U/L Normal 35-104 [facility] Comment on above: Performed By: #### B MP, LIP, LIVP, CDP, HCG #### [facility] [address] [place] [address] Senior Electrical Designer: Jennifer Freire MD ALT [Catalytic activity/Vol] 14 U/L Normal 5-33 [facility] Comment on above: Performed By: #### B MP, LIP, LIVP, CDP, HCG #### [facility] [address] [place], [place] [phone] Senior Electrical Designer: Jennifer Freire MD AST [Catalytic activity/Vol] 18 U/L Normal <32 [facility] Comment on above: Performed By: #### B MP, LIP, LIVP, CDP, HCG #### [facility] [address] [place], [place] 2766190 Senior Electrical Designer: Jennifer Freire MD Bilirubin [Mass/Vol] 0.5 mg/dL Normal 0.3-1.2 [facility] Comment on above: Performed By: #### B MP, LIP, LIVP, CDP, HCG #### [facility] [address] [place], [place] [phone] Senior Electrical Designer: Jennifer Freire MD Bilirubin, Indirect Can not be calculated Normal 0.0-1.0 [facility] Comment on above: Performed By: #### B MP, LIP, LIVP, CDP, HCG #### [facility] [address] [place], [place] [phone] Senior Electrical Designer: Jennifer Freire MD Bilirubin.indirect [Mass/Vol] mg/dL Normal <0.3 [facility] Comment on above: Performed By: #### B MP, LIP, LIVP, CDP, HCG #### [facility] [address] [place], [place] 3303490 Senior Electrical Designer: Jennifer Freire MD Protein [Mass/Vol] 7.9 g/dL Normal 6.4-8.3 [facility] Comment on above: Performed By: #### B MP, LIP, LIVP, CDP, HCG #### [facility] [address] [place] [address] Senior Electrical Designer: Jennifer Freire MD Urinalysis, Routineon 2022 Bilirubin, SemiQt,Ur Negative Normal NEG [facility] Comment on above: Performed By: #### U A #### [facility] [address] [place], [place] [phone] Senior Electrical Designer: Jennifer Freire MD Blood, Urine Negative Normal NEG [facility] Comment on above: Performed By: #### U A #### [facility] [address] [place], [place] 2025790 Senior Electrical Designer: Jennifer Freire MD Clarity (U) Clear Normal CLEAR [facility] Comment on above: Performed By: #### U A #### [facility] [address] [place], [place] 1160790 Senior Electrical Designer: Jennifer Freire MD Color (U) Yellow Normal YEL [facility] Comment on above: Performed By: #### U A #### [facility] [address] [place], [place] 8918790 Senior Electrical Designer: Jennifer Freire MD Comment Normal [facility] Comment on above: Performed By: #### U A #### [facility] [address] [place], [place] 2287490 Senior Electrical Designer: Jennifer Freire MD Glucose Ql (U) Negative Normal NEG [facility] Comment on above: Performed By: #### U A #### [facility] [address] [place] [address] Senior Electrical Designer: Jennifer Freire MD Ketones Ql (U) Negative Normal NEG [facility] Comment on above: Performed By: #### U A #### [facility] [address] [place], [place] [address] Senior Electrical Designer: Jennifer Freire MD Leukocyte esterase Test strip Ql (U) Negative Normal NEG [facility] Comment on above: Performed By: #### U A #### [facility] [address] [place], [place] 5008490 Senior Electrical Designer: Jennifer Freire MD Nitrite,Ur Negative Normal NEG [facility] Comment on above: Performed By: #### U A #### [facility] [address] [place] [address] Senior Electrical Designer: Jennifer Freire MD PH,Ur 8.0 Normal 5.0-8.0 [facility] Comment on above: Performed By: #### U A #### [facility] [address] [place], [place] 7384590 Senior Electrical Designer: Jennifer Freire MD Protein Ql (U) Negative Normal NEG [facility] Comment on above: Performed By: #### U A #### [facility] [address] [place], [place] 3584190 Senior Electrical Designer: Jennifer Freire MD Spec. [place],Ur 1.010 Normal 1.005-1.030 [facility] Comment on above: Performed By: #### U A #### [facility] [address] [place], [place] 1728890 Senior Electrical Designer: Jennifer Freire MD Urobilinogen,Ur Normal Normal 0.0-1.0 [facility] Comment on above: Performed By: #### U A #### [facility] [address] [place] [address] Senior Electrical Designer: Jennifer Freire MD Discharge Instructionson Discharge Instructions [id number] 120 [id number] #[id number] Normal [facility] ED Clinical Summaryon 2022 ED Clinical Summary [address] [address] ED Clinical Summary Person Information Name: [facility] Age: 38 Years : 1985 Sex: Female Language: Cymraes PCP: BETTIE MIRELES Marital Status: Visit Id: [...] 05/18/2023 00:57:00 ADDRESS: [address] [place] [id number] PHYS DOC NOTES: MEDICAL INFORMATION: Prescriptions Given: Medications to Continue with No Changes Other Medications alprazolam (alprazolam 0.25 mg Tab) budesonide-formotero l (Symbicort 80/4.5 inhalation aerosol with adapter) citalopram (citalopram 20 mg Tab) By Mouth every day. PATIENT EDUCATION INFORMATION: Instructions: Ovarian Cyst Follow up: With: Address: When: Ino Royal [address] [place] [address], [facility], [place] [address] Business (1) In 3 days 05/21/2023 DIAGNOSIS: Bilateral ovarian cysts; Unspecified ovarian cyst, left side Normal [facility] ED Note-Physicianon 05-18-20 ED Note-Physician Basic Information [...] and Complexity of Problems Differential Diagnosis: [] [facility] Data External documents reviewed: N/A My [...] of discharge with close follow-up with her PRICK STITCHER at the 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 We discussed [...] 05/21/[address] [place] [address]- Business (1) Additional Instructions: Patient Education Ovarian [...] (more content not included)... Normal [facility] Comment on above: Result Comment: Elec tronically [...] Follow these instructions at home: ? Take tncw-vgr-tarrrke and prescription medicines only as told by [...] Reviewed: 11/06/2020 Elsevier Patient Education ? 2022 Live Life 360. Normal [facility] ED Patient Summaryon 023 ED Patient Summary [address] [address] Patient Discharge Instructions Person Information Name: LIVIA NOYOLA Age: 38 Years Arrival Date: 05/17/2023 20:20:39 Discharge Diagnosis: Bilateral ovarian cysts; Unspecified ovarian cyst, left side Primary Care Physician: ALINE, GENERIC Provider Information Primary Provider: Ritesh Heath DO [employer] Legal Secretary:None The exam and treatment you received in the Emergency Department were for an urgent problem and are not intended as complete care. It is important that you follow up with a doctor, nurse practitioner, or physician?s produce assistant for ongoing care. If your symptoms [...] Follow-up Instructions: With: Address: When: Ino Royal [address] [place], [place] [id number] Business (1) In 3 days 05/21/2023 In the event that this physician does not participate in your insurance network, please consult with your insurance company to find a nearby participating provider. Patient Education Materials: Ovarian Cyst A MESSAGE TO ALL PATIENTS REGARDING OPIOIDS PRESCRIPTION OPIOIDS: WHAT YOU NEED TO KNOW Prescription opioids can be used to help relieve rcqcqlrh-lo-dgrfcv pain and are often prescribed following a [...] be struggling with addiction, tell your health adult care manager and ask for guidance or call [facility]S [employer] Helpline at [phone]. (more content not included)... Normal [facility] Pelvis Non-OB Completeon 05-18-2023 Pelvis Non-OB Complete [...] Comments Transabdominal Ultrasound Performed Normal [facility] Auto Diffon 05-17-2023 Basophils/100 WBC (Bld) 0.4 % Normal 0.0-2.0 [facility] Comment on above: Order Comment: Order Added by Lis Expert. Performed By: #### 1 [id number], [id number], 6235808, 7489198, 1937850, [id number], 1351662 ####[place] [address] [place] [address] Basophils/Leukocytes Auto (Bld) [Pure # fraction] 0.0 E9/L Normal 0.0-0.2 [facility] Comment on above: Order Comment: Order Added by Lis Expert. Performed By: #### 1 [id number], [id number], 6508189, 0182805, 7892191, [id number], 5026023 ####[facility] [id number] [place] [address] Eosinophils/100 WBC (Bld) 0.2 % Normal 0.0-8.0 [facility] Comment on above: Order Comment: Order Added by Discern Expert. Performed By: #### 1 [id number], 8491144, 7501701, 4562376, 7651171, [id number], 5436158 ####[facility] [id number] [place] [address] Eosinophils/Leukocytes Auto (Bld) [Pure # fraction] 0.0 E9/L Normal 0.0-0.5 [facility] Comment on above: Order Comment: Order Added by Discern Expert. Performed By: #### 1 [id number], 9372565, 8576617, 8146244, 7735185, [id number], [id number] ####[facility] [id number] [place] [address] Lymphocytes/100 WBC (Bld) 33.4 % Normal 14.0-50.0 [facility] Comment on above: Order Comment: Order Added by Discern Expert. Performed By: #### 1 [id number], 6320944, 4623293, 1382083, 6956829, 36369462, 7811943 ####[place] [address] [place] [address] Lymphocytes/Leukocytes Auto (Bld) [Pure # fraction] 2.8 E9/L Normal 1.0-4.0 [facility] Comment on above: Order Comment: Order Added by Discern Expert. Performed By: #### 1 [id number], 3103889, 8087961, 9306188, 1958491, [id number], 6065337 ####[address] [address] Monocytes/100 WBC (Bld) 9.1 % Normal 4.0-14.0 [facility] Comment on above: Order Comment: Order Added by Discern Expert. Performed By: #### 1 [id number], 6340330, 6888939, 8698226, 8611197, 13386222, 9205473 ####[address] [address] Monocytes/Leukocytes Auto (Bld) [Pure # fraction] 0.8 E9/L Normal 0.2-1.0 [facility] Comment on above: Order Comment: Order Added by Lis Expert. Performed By: #### 1 4412087, 7855867, 4888003, 6016332, 3057052, 47864264, 5243017 ####[address] [place] [address] Neutrophils/100 WBC (Bld) 56.9 % Normal 36.0-75.0 [facility] Comment on above: Order Comment: Order Added by Lis Expert. Performed By: #### 1 7802701, 7608112, 3346289, 1034079, 4982997, 41158738, 6210721 ####[address] [address] Neutrophils/Leukocytes Auto (Bld) [Pure # fraction] 4.8 E9/L Normal 2.0-7.5 [facility] Comment on above: Order Comment: Order Added by Discern Expert. Performed By: #### 1 6953288, 9389563, 5625902, 8127196, 8174772, 73371790, 0105542 ####[facility] [address] [place] [address] BMPon 05-17-2023 Creatinine [Mass/Vol] 0.8 mg/dL Normal 0.5-1.3 [facility] Comment on above: Performed By: #### 1 0589558, 2823967, 5146323, 7025947, 5704427, 58160952, 5627229 ####[facility] [address] [place] [address] Urea nitrogen [Mass/Vol] 5 mg/dL Normal 5-21 [facility] Comment on above: Performed By: #### 1 6618024, 9109661, 4531322, 3290286, 4259991, 87967833, 4963406 ####[facility] [address] [place] [address] Urea nitrogen/Creatinine [Mass ratio] 6 No Units Low 10-20 [facility] Comment on above: Performed By: #### 1 6266484, 4974165, 8676733, 4804911, 4761228, 86215647, 4979007 ####[facility] [address] [place] [address] Anion gap [Moles/Vol] 11 mmol/L Normal 6-16 [facility] Comment on above: Performed By: #### 1 3166427, 0348553, 6853496, 6727244, 8741908, 57769822, 8801688 ####[facility] [address] [place] [address] Calcium [Mass/Vol] 9.3 mg/dL Normal 8.9-11.1 [facility] Comment on above: Performed By: #### 1 6575789, 5001489, 6688636, 0623549, 0282842, 18076520, 5036658 ####[facility] [address] [place] [address] Chloride [Moles/Vol] 109 mmol/L Normal 101-111 [facility] Comment on above: Performed By: #### 1 0646563, 6754577, 5895032, 5015709, 2522740, 70545629, 3438595 ####[facility] [address] [place] [address] CO2 [Moles/Vol] 23 mmol/L Normal 21-31 [facility] Comment on above: Performed By: #### 1 3235187, 7538955, 8599681, 1443830, 3502044, 90471038, 5123310 ####[facility] [address] [place] [address] Glucose [Mass/Vol] 104 mg/dL Normal 55-199 [facility] Comment on above: Result Comment: If t his glucose result represents a fasting glucose, interpretation should refer to the following reference range: 55-99 mg/dL Performed By: #### 1 8296633, 3471898, 9086133, 1215859, 4688150, 95618792, 0129143 ####[facility] [address] [place] [address] Potassium [Moles/Vol] 4.1 mmol/L Normal 3.5-5.3 [facility] Comment on above: Performed By: #### 1 7032964, 6799909, 4010777, 4457276, 3456352, 21493926, 4306848 ####[facility] [address] [place] [address] Sodium [Moles/Vol] 139 mmol/L Normal 135-145 [facility] Comment on above: Performed By: #### 1 5091214, 1689335, 1828566, 6004798, 3023033, 33655696, 2368404 ####[facility] [address] [place] [address] CBC w/ Auto Diffon 3 Erythrocyte distribution width (RBC) [Ratio] 18.7 % High 10.9-14.2 [facility] Comment on above: Performed By: #### 1 2076726, 2607088, 6127361, 4640333, 2848803, 18939290, 5362249 #### [facility] [address] [place] [address] Hematocrit (Bld) [Volume fraction] 37.4 % Normal 34.0-46.0 [facility] Comment on above: Performed By: #### 1 1899455, 8006016, 5027198, 9876342, 7885015, 59531132, 9706128 #### [facility] [address] [place] [address] Hemoglobin (Bld) [Mass/Vol] 11.7 g/dL Low 12.0-16.0 [facility] Comment on above: Performed By: #### 1 0866327, 6487257, 4747903, 7911682, 6508023, 79395629, 6669007 #### [facility] [address] [place] [address] MCH (RBC) [Entitic mass] 24.4 pg Low 27.0-34.0 [facility] Comment on above: Performed By: #### 1 4127459, 0719709, 8817315, 9172642, 0900042, 24529531, 3260331 #### [facility] [address] [place] [address] MCHC (RBC) [Mass/Vol] 31.2 g/dL Low 31.4-36.0 [facility] Comment on above: Performed By: #### 1 6327426, 5510527, 8449507, 4028219, 3496823, 39629709, 1569865 #### [facility] [address] [place] [address] MCV (RBC) [Entitic vol] 78.2 fL Low 80.0-100.0 [facility] Comment on above: Performed By: #### 1 1349322, 6763497, 5560495, 5507860, 1216201, 62684880, 9961079 #### [facility] [address] [place] [address] Platelet mean volume (Bld) [Entitic vol] 7.8 fL Normal 6.4-10.8 [facility] Comment on above: Performed By: #### 1 8310514, 2727388, 6443714, 6918428, 8005119, 14741266, 1852085 #### [facility] [address] [place] [address] Platelets (Bld) [#/Vol] 469.0 E9/L Normal 150.0-500.0 [facility] Comment on above: Performed By: #### 1 4583603, 8803134, 8681539, 2798864, 6874072, 15376865, 9255294 #### [facility] [address] [place] [address] RBC (Bld) [#/Vol] 4.8 E12/L Normal 4.3-5.9 [facility] Comment on above: Performed By: #### 1 3325549, 9738757, 5961003, 1653023, 0610882, 33553098, 7673018 #### [facility] [address] [place] [address] WBC corrected for nucl RBC Auto (Bld) [#/Vol] 8.5 E9/L Normal 4.0-11.0 [facility] Comment on above: Performed By: #### 1 4104570, 5578481, 9035951, 5857465, 1440993, 69687055, 1113110 #### [facility] [address] [place] [address] Consent for Treatmenton Consent for Treatment [id number] #[id number] Normal [facility] ED Note-Nursingon 05-17-2023 ED Note-Nursing Pt being transported to US at this time Normal [facility] Hep Func Panelon 05-17-2023 Albumin [Mass/Vol] 4.2 g/dL Normal 3.3-5.0 [facility] Comment on above: Performed By: #### 1 5793435, 1545882, 9650088, 1805626, 5089888, 80081252, 5639072 ####[address] [place] [address] Albumin/Globulin (S) [Mass conc ratio] 1.2 Normal 1.1-2.2 [facility] Comment on above: Performed By: #### 1 4411683, 4048265, 0427590, 0664903, 4034307, 57909213, 5889952 ####[address] [place] [address] ALP [Catalytic activity/Vol] 58 Int._Unit/L Normal 21-98 [facility] Comment on above: Performed By: #### 1 9036377, 3069193, 8795741, 6512353, 8912538, 88243149, 2623637 ####[address] [address] ALT No additional P-5'-P [Catalytic activity/Vol] 14 Int._Unit/L Normal 6-46 [facility] Comment on above: Performed By: #### 1 3663986, 0130927, 5065458, 5756130, 7948119, 28998354, 6931394 ####[address] [address] AST [Catalytic activity/Vol] 21 Int._Unit/L Normal 5-43 [facility] Comment on above: Performed By: #### 1 7792025, 5757158, 9264962, 3549531, 6422204, 93430594, 0342132 ####[address] [place] [address] Bilirubin [Mass/Vol] 0.6 mg/dL Normal 0.0-1.1 [facility] Comment on above: Performed By: #### 1 6830240, 9426378, 1051747, 3239100, 8201666, 41276341, 8959351 ####[address] [address] Bilirubin.direct [Mass/Vol] 0.1 mg/dL Normal 0.1-0.4 [facility] Comment on above: Performed By: #### 1 9028900, 3702828, 1022749, 9650334, 8403008, 27606232, 6280847 ####[facility] [address] [place] [address] Bilirubin.indirect [Mass or moles/Vol] 0.5 mg/dL Normal 0.1-0.9 [facility] Comment on above: Performed By: #### 1 4796892, 6689130, 3123582, 4528004, 2677806, 88338602, 4776628 ####[facility] [address] [place] [address] Globulin (S) [Mass/Vol] 3.6 g/dL Normal 1.4-4.0 F [facility] Comment on above: Performed By: #### 1 0112658, 4418577, 4723968, 7279663, 1826457, 19019891, 4146031 ####[facility] [address] [place] [address] Protein [Mass/Vol] 7.8 g/dL Normal 6.0-7.8 [facility] Comment on above: Performed By: #### 1 7414146, 9242511, 8197440, 3847754, 5376580, 25706406, 7593622 ####[facility] [address] [place] [address] Lipase Levelon 05-17-2023 Lipase [Catalytic activity/Vol] 57 U/L Normal 13-58 [facility] Comment on above: Performed By: #### 1 0628901, 2093039, 0964118, 3117156, 7749699, 99542289, 1648823 #### [facility] [address] [place] [address] Morphon 05-17-2023 Anisocytosis Ql (Bld) Present Normal [facility] Comment on above: Order Comment: Order Added by Discern Expert. Performed By: #### 1 4691794, 6691607, 6077738, 5224075, 6783625, 12154442, 4564109 #### [facility] [address] [place] [address] Hypochromia Auto Ql (Bld) Present Normal [facility] Comment on above: Order Comment: Order Added by Discern Expert. Performed By: #### 1 7358451, 2315449, 6114089, 5127566, 3116768, 98132335, 3002826 #### [facility] [address] [place] [address] Microcytes Ql (Bld) Present [facility] Comment on above: Order Comment: Order Added by Discern Expert. Performed By: #### 1 9321821, 3838259, 2569806, 4536868, 7664497, 50618086, 6741409 #### [facility] [address] [place] [address] Morphology Edson (Bld) [Interp] See Morphology Normal [facility] Comment on above: Order Comment: Order Added by Discern Expert. Performed By: #### 1 7598618, 3942929, 1884168, 9003877, 9589616, 68769729, 9644237 #### [facility] [address] [place] [address] Ovalocytes LM Ql (Bld) Present Normal [facility] Comment on above: Order Comment: Order Added by Discern Expert. Performed By: #### 1 1561026, 2331770, 2288236, 8675196, 9610777, 02108945, 3363128 #### [facility] [address] [place] [address] U BetaHcg Qualon 05-17-2023 HCG.beta subunit (U) [Moles/Vol] Negative Normal [facility] Comment on above: Performed By: #### 1 3053267, 72620763 ####[facility] [address] [place] [address] UA With Cult Reflexon 2022 Bacteria LM Ql (Urine sed) TRACE Normal Trace [facility] Comment on above: Performed By: #### 1 6774623, 54509349 ####[facility] [address] [place] [address] Bilirubin Ql (U) Negative Normal Negative [facility] Comment on above: Performed By: #### 1 6699909, 21121936 ####[facility] [address] [place] [address] Clarity (U) CLEAR Normal Clear [facility] Comment on above: Performed By: #### 1 9812639, 63919939 ####[facility] [address] [place] [address] Color (U) YELLOW Normal Yellow [facility] Comment on above: Performed By: #### 1 6789994, 05621539 ####[address] [address] Epithelial cells.squamous LM.HPF (Urine sed) [#/Area] 3-4 Normal 0-2 [facility] Comment on above: Performed By: #### 1 8976741, 72239511 ####[facility] [address] [place] [address] Glucose Test strip (U) [Mass/Vol] Negative Normal Negative [facility] Comment on above: Performed By: #### 1 2428926, 87323371 ####[facility] [address] [place] [address] Hemoglobin Ql (U) Negative Normal Negative [facility] Comment on above: Performed By: #### 1 5881198, 11112831 ####[facility] [address] [place] [address] Ketones (U) [Mass/Vol] TRACE Invalid Interpretation Code Negative [facility] Comment on above: Performed By: #### 1 5873742, 81509758 ####[facility] [address] [place] [address] [place].plasma/[place]. RBC (Bld) [Mass ratio] 0-3 Normal 0-3 [facility] Comment on above: Performed By: #### 1 8898753, 49601031 ####[facility] [address] [place] [address] Mucus Ql (Urine sed) 2+ Normal Fish [facility] Comment on above: Performed By: #### 1 2612467, 69557516 ####[facility] [address] [place] [address] Nitrite Ql (U) Negative Normal Negative [facility] Comment on above: Performed By: #### 1 5510685, 14902143 ####[address] [address] pH (U) 6.0 [pH] Invalid Interpretation Code 5.0-9.0 [facility] Comment on above: Performed By: #### 1 0724851, 57103147 ####[address] [address] Protein (U) [Mass/Vol] Negative Normal Negative [facility] Comment on above: Performed By: #### 1 0272278, 88160443 ####[address] [address] Specific gravity (U) [Rel density] >=1.030 Invalid Interpretation Code 1.005-1.030 [facility] Comment on above: Performed By: #### 1 2944204, 69451762 ####[address] [address] Type of Urine collection method Clean Catch Normal [facility] Comment on above: Performed By: #### 1 4892687, 20870405 ####[facility] [address] [place] [address] Urobilinogen Qn (U) 2.0 {Ivone'U}/dL Abnormal 0.0-1.0 [facility] Comment on above: Performed By: #### 1 8129576, 75494597 ####[facility] [address] [place] [address] WBC Auto Ql (U) Negative Normal Negative [facility] Comment on above: Performed By: #### 1 0834378, 60151528 ####[facility] [address] [place] [address] WBC LM.HPF (Urine sed) [#/Area] 0-5 Normal 0-5 [facility] Comment on above: Performed By: #### 1 2209381, 14241984 ####[facility] [address] [place] [address] eGFRon 05-17-2023 GFR/1.73 sq M.predicted among non-blacks MDRD (S/P/Bld) [Vol rate/Area] 98 mL/min/1.73 m2 Normal >=59 [facility] Comment on above: Order Comment: Order added by Discern Expert. Result Comment: Tool Builder franklin kidney disease could be indicated at eGFR's of less than 60 mL/min/1.73m2. Kidney failure is indicated at less than 15 mL/min/1.73m2. Performed By: #### 1 7561001, 6869481, 3376491, 5536019, 6378176, 66456896, 8163385 ####[facility] [address] [place] [address] Alanine aminotransferase [En zymatic activity/volume] in Serum or PlasmaOrdered By: Elier Jackson on 04-30-2023 ALT [Catalytic activity/Vol] 15 U/L Normal 7-52 [facility] Comment on above: Performed By: #### H CGQNT #### [facility] [address] Albumin [Mass/volume] in Ser um or Plasma by Bromocresol green (BCG) dye binding methoOrdered By: Elier Jackson on 04-30-2023 Albumin BCG dye [Mass/Vol] 4.3 g/dL 3.5-5.7 [facility] Alkaline phosphatase [Enzyma tic activity/volume] in Serum or PlasmaOrdered By: Elier Jackson on 04-30-2023 ALP [Catalytic activity/Vol] 68 U/L Normal 34-104 [facility] Comment on above: Performed By: #### H CGQNT #### [address] Aspartate aminotransferase [ Enzymatic activity/volume] in Serum or PlasmaOrdered By: Elier Velásquezarleen on 04-30-2023 AST [Catalytic activity/Vol] 17 U/L Normal 13-39 [facility] Comment on above: Performed By: #### H CGQNT #### [address] Automated basophil %Ordered By: Elierjaqui Jackson on 04-30-2023 Basophils/100 WBC (Bld) 1.3 % Normal . [facility] Comment on above: Performed By: #### H CGQNT #### [address] Automated basophil countOrde red By: Elier Jackson on 04-30-2023 Basophils (Bld) [#/Vol] 0.0 10*3/uL Normal 0.0-0.2 [facility] Comment on above: Result Comment: PERF ORMED BY: [place] [address] PATHOLOGIST LEAD PHP DEVELOPER FARNAZ ZULETA M.D. Performed By: #### H CGQNT #### [address] Automated blood monocyte cou ntOrdered By: Elier Jackson on 04-30-2023 Monocytes (Bld) [#/Vol] 0.3 10*3/uL Normal 0.0-0.8 [facility] Comment on above: Performed By: #### H CGQNT #### [address] Automated eosinophil %Ordere d By: Elier Jackson on 04-30-2023 Eosinophils/100 WBC (Bld) 0.6 % Normal . [facility] Comment on above: Performed By: #### H CGQNT #### [address] Automated eosinophil countOr dered By: Elier Jackson on 04-30-2023 Eosinophils (Bld) [#/Vol] 0.0 10*3/uL Normal 0.0-0.45 [facility] Comment on above: Performed By: #### H CGQNT #### [address] Automated erythrocytes count in urine sediment (number/area)Ordered By: Elier Manuel on 04-30-2023 RBC Auto (Urine sed) [#/Area] 5-9 [HPF] 0-4 [facility] Automated leukocytes count i n urine sediment (number/area)Ordered By: Elier Manuel on 04-30-2023 WBC Auto (Urine sed) [#/Area] 0-1 [HPF] 0-4 [facility] Automated monocyte %Ordered By: Elier Jackson on 04-30-2023 Monocytes/100 WBC (Bld) 7.0 % Normal . F [facility] Comment on above: Performed By: #### H CGQNT #### [address] Automated neutrophil %Ordere d By: Elier Jackson on 04-30-2023 Neutrophils/100 WBC (Bld) 46.9 % Normal . [facility] Comment on above: Performed By: #### H CGQNT #### [address] Automated urine color determ inationOrdered By: Elier Jackson on 04-30-2023 Color (U) Yellow Normal Yellow [facility] Comment on above: Order Comment: Name Collection Type:: Clean-Voided Midstream Performed By: #### U HCG, ADDONUAPLUS #### [address] Basic Metabolic Panelon 04-13 Creatinine Clr Calc Pharmacy 107.67 Normal [facility] Comment on above: Performed By: #### H CGQNT #### [address] GFR/1.73 sq M.predicted MDRD (S/P/Bld) [Vol rate/Area] mL/min/{1.73_m2} Normal [facility] Comment on above: Performed By: #### H CGQNT #### [address] Bilirubin Test strip Ql (U)O rdered By: Elier Velásquezarleen on 04-30-2023 Bilirubin Ql (U) Negative Negative [facility] Bilirubin.direct [Mass/volum e] in Serum or PlasmaOrdered By: Elierjaqui Jackson on 04-30-2023 Bilirubin.direct [Mass/Vol] 0.10 mg/dL 0.03-0.18 [facility] Bilirubin.total [Mass/volume ] in Serum or PlasmaOrdered By: Elier Jackson on 04-30-2023 Bilirubin [Mass/Vol] 0.4 mg/dL Normal 0.3-1.0 [facility] Comment on above: Performed By: #### H CGQNT #### [place] [address] [place] Calcium [Mass/volume] in Ser um or PlasmaOrdered By: Elier Jackson on 04-30-2023 Calcium [Mass/Vol] 9.2 mg/dL Normal 8.6-10.3 [facility] Comment on above: Performed By: #### H CGQNT #### [address] Carbon dioxide, total [Moles /volume] in Serum or PlasmaOrdered By: Elier Jackson on 04-30-2023 CO2 [Moles/Vol] 20.1 mmol/L Low 21.0-31.0 [facility] Comment on above: Performed By: #### H CGQNT #### [facility] [address] [place] [address] [place] Chloride [Moles/volume] in S binu or PlasmaOrdered By: Elier Jackson on 04-30-2023 Chloride [Moles/Vol] 109 mmol/L High 98-107 [facility] Comment on above: Performed By: #### H CGQNT #### [address] Complete Blood Count Auto Di ffon 04-30-2023 Mean Corpuscular HGB Conc 34.7 g/dL Normal 32.0-35.0 [facility] Comment on above: Performed By: #### H CGQNT #### [facility] [address] [place] [address] [place] Monocytes/100 WBC (Bld) 16.58 % Normal 0.00-20.00 [facility] Comment on above: Performed By: #### H CGQNT #### [facility] [address] [place] [address] [place] NRBC% 0.1 /100{WBC} Normal 0-0.5 [facility] Comment on above: Performed By: #### H CGQNT #### [place] [address] [place] Creatinine [Mass/volume] in Serum or PlasmaOrdered By: Elier Jackson on 04-30-2023 Creatinine [Mass/Vol] 0.65 mg/dL Normal 0.60-1.20 [place] Comment on above: Performed By: #### H CGQNT #### [place] [address] [place] Dipstick and Microscopicon 1 06-30-2022 Appearance (U) Clear Normal Clear [facility] Comment on above: Order Comment: Name Collection Type:: Clean-Voided Midstream Performed By: #### U HCG, ADDONUAPLUS #### [place] [address] [place] Bacteria,Urine None Seen Normal None Seen [facility] Comment on above: Order Comment: Name Collection Type:: Clean-Voided Midstream Performed By: #### U HCG, ADDONUAPLUS #### [place] [address] [place] Bilirubin,Urine Negative Normal Negative [facility] Comment on above: Order Comment: Name Collection Type:: Clean-Voided Midstream Performed By: #### U HCG, ADDONUAPLUS #### [place] [address] [place] Glucose Ql (U) Normal Normal Normal [facility] Comment on above: Order Comment: Name Collection Type:: Clean-Voided Midstream Performed By: #### U HCG, ADDONUAPLUS #### [facility] [address] [place] [address] [place] Hyaline Casts,Urine 0-8 Normal 0-8 [facility] Comment on above: Order Comment: Name Collection Type:: Clean-Voided Midstream Performed By: #### U HCG, ADDONUAPLUS #### [address] Ketones Ql (U) Negative Normal Negative [facility] Comment on above: Order Comment: Name Collection Type:: Clean-Voided Midstream Performed By: #### U HCG, ADDONUAPLUS #### [address] Leukocyte esterase Test strip Ql (U) Negative Normal Negative [facility] Comment on above: Order Comment: Name Collection Type:: Clean-Voided Midstream Performed By: #### U HCG, ADDONUAPLUS #### [place] [address] [place] Nitrite,Urine Negative Normal Negative [facility] Comment on above: Order Comment: Name Collection Type:: Clean-Voided Midstream Performed By: #### U HCG, ADDONUAPLUS #### [address] Occult Blood,Urine 2+ High Negative [facility] Comment on above: Order Comment: Name Collection Type:: Clean-Voided Midstream Performed By: #### U HCG, ADDONUAPLUS #### [place] [address] [place] Protein,Urine Negative Normal Negative [facility] Comment on above: Order Comment: Name Collection Type:: Clean-Voided Midstream Performed By: #### U HCG, ADDONUAPLUS #### [place] [address] [place] RBC,Urine 5-9 High 0-4 [facility] Comment on above: Order Comment: Name Collection Type:: Clean-Voided Midstream Performed By: #### U HCG, ADDONUAPLUS #### [place] [address] [place] Specificy [place],Urine 1.018 Normal 1.001-1.030 [facility] Comment on above: Order Comment: Name Collection Type:: Clean-Voided Midstream Performed By: #### U HCG, ADDONUAPLUS #### [address] Squamous Epithelial Cell,Urine 0-1 Normal 0-2 [facility] Comment on above: Order Comment: Name Collection Type:: Clean-Voided Midstream Performed By: #### U HCG, ADDONUAPLUS #### [address] Urobilinogen,Urine Normal Normal Normal [facility] Comment on above: Order Comment: Name Collection Type:: Clean-Voided Midstream Performed By: #### U HCG, ADDONUAPLUS #### [address] WBC LM.HPF (Urine sed) [#/Area] 0 /[HPF] Normal 0-4 [facility] Comment on above: Order Comment: Name Collection Type:: Clean-Voided Midstream Performed By: #### U HCG, ADDONUAPLUS #### [address] Erythrocyte distribution wid th [Ratio] by Automated countOrdered By: Elier Jackson on 04-30-2023 Erythrocyte distribution width (RBC) [Ratio] 16.8 % High 11.9-15.3 [facility] Comment on above: Performed By: #### H CGQNT #### [address] Erythrocytes [#/volume] in B lood by Automated countOrdered By: Elier Jackson on 04-30-2023 RBC (Bld) [#/Vol] 3.68 10*6/uL Normal 3.60-5.00 [facility] Comment on above: Performed By: #### H CGQNT #### [address] Glucose [Mass/volume] in Ser um or PlasmaOrdered By: Elier Jackson on 04-30-2023 Glucose [Mass/Vol] 100 mg/dL Normal 70-100 [facility] Comment on above: ADA recommended refe rence rangeRandom Glucose Reference Range is dependent on time and content of last meal. Glucose of more than 200 mg/dL in a nonstressed, ambulatory subject supports the diagnosis of Diabetes Mellitus. Result Comment: [place] om Glucose Reference Range is dependent on time and content of last meal. Glucose of more than 200 mg/dL in a nonstressed, ambulatory subject supports the diagnosis of Diabetes Mellitus. ADA recommended reference range Performed By: #### H CGQNT #### [place] [address] [place] HCG ( test) IA.rapi d Ql (U)Ordered By: Elier Jackson on 04-30-2023 HCG ( test) Ql (U) Negative [facility] HCG,Urineon 04-30-2023 Beta HCG ( test) Ql (U) Negative Normal [facility] Comment on above: Order Comment: Name Collection Type:: Clean-Voided Midstream Result Comment: PERF ORMED BY: [address] [place] [address] PATHOLOGIST LEAD PHP DEVELOPER FARNAZ ZULETA M.D. Performed By: #### U HCG, ADDONUAPLUS #### [address] Hematocrit [Volume Fraction] of Blood by Automated countOrdered By: Elier Jackson on 04-30-2023 Hematocrit (Bld) [Volume fraction] 32.3 % Low 34.0-46.4 [facility] Comment on above: Performed By: #### H CGQNT #### [facility] [address] [place] [address] Hemoglobin [Mass/volume] in BloodOrdered By: Elier Jackson on 04-30-2023 Hemoglobin (Bld) [Mass/Vol] 11.2 g/dL Low 11.8-15.4 [facility] Comment on above: Performed By: #### H CGQNT #### [facility] [address] [place] [address] [place] Hepatic Panelon 04-30-2023 Albumin [Mass/Vol] 4.3 g/dL Normal 3.5-5.7 [facility] Comment on above: Performed By: #### H CGQNT #### [address] Bilirubin,Indirect 0.3 mg/dL Normal [facility] Comment on above: Performed By: #### H CGQNT #### [address] Bilirubin.indirect [Mass/Vol] 0.10 mg/dL Normal 0.03-0.18 [facility] Comment on above: Performed By: #### H CGQNT #### [address] Ketones Auto test strip (U) [Mass/Vol]Ordered By: Elier Jackson on 04-30-2023 Ketones (U) [Mass/Vol] Negative Negative [facility] - UrinalysisOrder ed By: Elier Jackson on 04-30-2023 Hyaline casts LM Ql (Urine sed) 0-8 [LPF] 0-8 [facility] Leukocytes [#/volume] correc flo for nucleated erythrocytes in Blood by Automated counOrdered By: Elier Jackson on 04-30-2023 WBC corrected for nucl RBC Auto (Bld) [#/Vol] 3.6 10*3/uL 3.8-11.6 [facility] Leukocytes [#/volume] in Blo od by Automated countOrdered By: Elier Jackson on 04-30-2023 WBC (Bld) [#/Vol] 3.6 10*3/uL Low 3.8-11.6 [facility] Comment on above: Performed By: #### H CGQNT #### [address] Lipase [Enzymatic activity/v olume] in Serum or PlasmaOrdered By: Elier Jackson on 04-30-2023 Lipase [Catalytic activity/Vol] 31.0 U/L Normal 11.0-82.0 [facility] Comment on above: Result Comment: PERF ORMED BY: [place] [address] PATHOLOGIST LEAD PHP DEVELOPER FARNAZ ZULETA M.D. Performed By: #### H CGQNT #### [address] Lymphocytes [#/volume] in Bl ood by Automated countOrdered By: Elier Jackson on 04-30-2023 Lymphocytes (Bld) [#/Vol] 1.6 10*3/uL Normal 1.00-4.8 [facility] Comment on above: Performed By: #### H CGQNT #### [address] Lymphocytes/100 leukocytes i n Blood by Automated countOrdered By: Elier Jackson on 04-30-2023 Lymphocytes/100 WBC (Bld) 44.2 % Normal . [facility] Comment on above: Performed By: #### H CGQNT #### [address] MCH [Entitic mass] by Automa flo countOrdered By: Elier Jackson on 04-30-2023 MCH (RBC) [Entitic mass] 30.4 pg Normal 24.7-34.3 [facility] Comment on above: Performed By: #### H CGQNT #### [address] MCHC Auto (RBC) [Mass/Vol]Or dered By: Elier Jackson on 04-30-2023 MCHC (RBC) [Mass/Vol] 34.7 g/dL 32.0-35.0 [place] MCV [Entitic volume] by Auto mated countOrdered By: Elier Jackson on 04-30-2023 MCV (RBC) [Entitic vol] 87.6 fL Normal 80-100 F [facility] Comment on above: Performed By: #### H CGQNT #### [place] [address] [place] Monocyte distribution width [Entitic volume] in Blood by AutomatedOrdered By: Elier Jackson on 04-30-2023 Monocyte distribution width Auto (Bld) [Entitic vol] 16.58 % 0.00-20.00 [facility] Neutrophils [#/volume] in Bl ood by Automated countOrdered By: Elier Manuel on 04-30-2023 Neutrophils (Bld) [#/Vol] 1.7 10*3/uL Low 1.8-7.7 [facility] Comment on above: Performed By: #### H CGQNT #### [facility] [address] [place] [address] Nitrite Test strip Ql (U)Ord ered By: Elier Jackson on 04-30-2023 Nitrite Ql (U) Negative Negative [facility] No Panel InformationOrdered By: Elier Jackson on 04-30-2023 Estimated GFR (CKD-EPI) > 60.0 mL/Min [facility] Creatinine Clearance (Chem 107.67 [facility] Nucleated erythrocytes [Pres ence] in Blood by Automated countOrdered By: Elier Jackson on 04-30-2023 Nucleated RBC Auto Ql (Bld) 0.1 /100{WBC} 0-0.5 [facility] Platelet mean volume [Entiti c volume] in Blood by Automated countOrdered By: Elier Jackson on 04-30-2023 Platelet mean volume (Bld) [Entitic vol] 8.0 fL Normal 6.3-10.7 [facility] Comment on above: Performed By: #### H CGQNT #### [facility] [address] [place] [address] [place] Platelets [#/volume] in Bloo d by Automated countOrdered By: Elier Jackson on 04-30-2023 Platelets (Bld) [#/Vol] 415 10*3/uL Normal 150-450 [facility] Comment on above: Performed By: #### H CGQNT #### [facility] [address] [place] [address] Potassium [Moles/volume] in Serum or PlasmaOrdered By: Elier Jackson on 04-30-2023 Potassium [Moles/Vol] 3.8 mmol/L Normal 3.5-5.1 [place] Comment on above: Performed By: #### H CGQNT #### [address] Protein Auto test strip (U) [Mass/Vol]Ordered By: Elier Jackson on 04-30-2023 Protein (U) [Mass/Vol] Negative Negative [facility] Protein [Mass/volume] in Ser um or PlasmaOrdered By: Elier Jackson on 04-30-2023 Protein [Mass/Vol] 7.6 g/dL Normal 6.4-8.9 [facility] Comment on above: Performed By: #### H CGQNT #### [address] Serum globulin measurement b y calculation (mass/volume)Ordered By: Elier Jackson on 04-30-2023 Globulin (S) [Mass/Vol] 3.3 g/dL Normal [facility] Comment on above: Performed By: #### H CGQNT #### [address] Serum or plasma albumin/glob ulin mass ratioOrdered By: Elier Jackson on 04-30-2023 Albumin/Globulin [Mass ratio] 1.3 {ratio} Normal [facility] Comment on above: Performed By: #### H CGQNT #### [address] Serum or plasma anion gap de terminationOrdered By: Elier Jackson on 04-30-2023 Anion gap [Moles/Vol] 14.7 mmol/L Normal 6.0-15.0 [facility] Comment on above: Performed By: #### H CGQNT #### [address] Serum or plasma non-glucuron idated bilirubin measurement (mass/volume)Ordered By: Elier Jackson on 04-30-2023 Bilirubin.indirect [Mass/Vol] 0.3 mg/dL [facility] Sodium [Moles/volume] in Ser um or PlasmaOrdered By: Elier Jackson on 04-30-2023 Sodium [Moles/Vol] 140 mmol/L Normal 136-145 [facility] Comment on above: Performed By: #### H CGQNT #### [address] Specific gravity Auto test s trip (U) [Rel density]Ordered By: Elier Jackson on 04-30-2023 Specific gravity (U) [Rel density] 1.018 1.001-1.030 [facility] Squamous epithelial cells de tection in urine sediment by light microscopyOrdered By: Elier Jackson on 04-30-2023 Epithelial cells.squamous LM Ql (Urine sed) 0-1 [HPF] 0-2 [facility] US pelvic completeon 023 US pelvic complete [facility] [place] [address] [place] [address] Ultrasound Report Signed Patient: Livia Noyola MR#: [id number] : 1985 Acct:[id number] Age/Sex: 38 / F ADM Date: 04/30/23 Loc: ER Room: Type: [facility] ER Attending Dr: Ordering Provider: Elier Jackson DO Date of Service: 04/30/23 US/US pelvic complete: L pelvic pain ([id number]) US/US transvaginal: LT PELVIC PAIN Copies to: [...] Betancur Jr., D.O.04/30/2023 6:24 PM Dictation Location: [place] [address] Tech: Brooke Hodge Transcribed By: AMBER 04/30/231823 Dictated By: Dennis Betancur Jr, DO 04/30/231820 Signed By: 04/30/231823 Normal [facility] Urea nitrogen [Mass/volume] in Serum or PlasmaOrdered By: Elier Jackson on 04-30-2023 Urea nitrogen [Mass/Vol] 6 mg/dL Low 7-25 [facility] Comment on above: Performed By: #### H CGQNT #### [facility] [address] [place] [address] Urine bacteria detection by automated methodOrdered By: Elier Jackson on 04-30-2023 Bacteria Auto Ql (U) None seen None Seen [facility] Urine clarity by refractomet ry automatedOrdered By: Elier Jackson on 04-30-2023 Clarity Refractometry automated (U) Clear Clear [facility] Urine glucose measurement by automated test strip (mass/volume)Ordered By: Elier Jackson on 04-30-2023 Glucose Auto test strip (U) [Mass/Vol] Normal mg/dL Normal [facility] Urine hemoglobin detection b y automated test stripOrdered By: Elier Jackson on 04-30-2023 Hemoglobin Auto test strip Ql (U) 2+ Negative [facility] Urine leukocyte esterase det ection by automated test stripOrdered By: Elier Jackson on 04-30-2023 Leukocyte esterase Auto test strip Ql (U) Negative Negative [facility] Urine pH measurement by auto mated test stripOrdered By: Elier Jackson on 04-30-2023 pH (U) 5.5 [pH] Normal 5.0-9.0 [facility] Comment on above: Order Comment: Name Collection Type:: Clean-Voided Midstream Performed By: #### U HCG, ADDONUAPLUS #### [facility] [address] [place] [address] [place] Urobilinogen Auto test strip (U) [Mass/Vol]Ordered By: Elier Jackson on 11-18-2023 Urobilinogen (U) [Mass/Vol] Normal mg/dL Normal [facility] Auto Diffon 04-24-2023 Basophils/100 WBC (Bld) 0.3 % Normal 0.0-2.0 [facility] Comment on above: Order Comment: Order Added by Discern Expert. Performed By: #### 2 989886, 3521005, 8721695, 91822334, 11495083 #### [facility] [address] [place] [address] Basophils/Leukocytes Auto (Bld) [Pure # fraction] 0.0 E9/L Normal 0.0-0.2 [facility] Comment on above: Order Comment: Order Added by Discern Expert. Performed By: #### 2 275195, 7912201, 0009609, 26106658, [id number] #### [facility] [address] [place] [address] Eosinophils/100 WBC (Bld) 0.9 % Normal 0.0-8.0 [facility] Comment on above: Order Comment: Order Added by Discern Expert. Performed By: #### 2 581848, 4338862, 4981754, 31123596, 79182357 #### [facility] [address] [place] [address] Eosinophils/Leukocytes Auto (Bld) [Pure # fraction] 0.0 E9/L Normal 0.0-0.5 [facility] Comment on above: Order Comment: Order Added by Discern Expert. Performed By: #### 2 376189, 0530301, 2021721, 37819981, 49148835 #### [facility] [address] [place] [address] Lymphocytes/100 WBC (Bld) 49.9 % Normal 14.0-50.0 [facility] Comment on above: Order Comment: Order Added by Discern Expert. Performed By: #### 2 464707, 5711019, 5490118, 03613399, 83607672 #### [facility] [address] [place] [address] Lymphocytes/Leukocytes Auto (Bld) [Pure # fraction] 2.3 E9/L Normal 1.0-4.0 [facility] Comment on above: Order Comment: Order Added by Discern Expert. Performed By: #### 2 202821, 0025415, 5950665, 49006273, 24111512 #### [facility] [address] [place] [address] Monocytes/100 WBC (Bld) 7.1 % Normal 4.0-14.0 [facility] Comment on above: Order Comment: Order Added by Discern Expert. Performed By: #### 2 445777, 9406151, 0111835, 68177946, 49640031 #### [facility] [address] [place] [address] Monocytes/Leukocytes Auto (Bld) [Pure # fraction] 0.3 E9/L Normal 0.2-1.0 [facility] Comment on above: Order Comment: Order Added by Discern Expert. Performed By: #### 2 298939, 9379662, 0631651, 44383168, 13926239 #### [facility] [address] [place] [address] Neutrophils/100 WBC (Bld) 41.8 % Normal 36.0-75.0 [facility] Comment on above: Order Comment: Order Added by Discern Expert. Performed By: #### 2 660771, 3154052, 7684782, 74535832, 78205314 #### [facility] [address] [place] [address] Neutrophils/Leukocytes Auto (Bld) [Pure # fraction] 2.0 E9/L Normal 2.0-7.5 [facility] Comment on above: Order Comment: Order Added by Discern Expert. Performed By: #### 2 813874, 3478289, 1479607, 07401924, 73910666 #### [facility] [address] [place] [address] B hCG Qualon 04-24-2023 Beta HCG ( test) Ql Negative Normal [facility] Comment on above: Performed By: #### 2 870803, 3495451, 7596400, 94458801, 81691599 #### [facility] [address] [place] [address] BMPon 04-24-2023 Creatinine [Mass/Vol] 0.7 mg/dL Normal 0.5-1.3 [facility] Comment on above: Performed By: #### 2 683091, 1797485, 6866526, 88595336, 11136556 #### [facility] [address] [place] [address] Urea nitrogen [Mass/Vol] 6 mg/dL Normal 5-21 [facility] Comment on above: Performed By: #### 2 132814, 2426850, 3169126, 33961243, 46010128 #### [facility] [address] [place] [address] Urea nitrogen/Creatinine [Mass ratio] 9 No Units Low 10-20 [facility] Comment on above: Performed By: #### 2 347467, 0156130, 3876030, 52994007, 04375539 #### [facility] [address] [place] [address] Anion gap [Moles/Vol] 14 mmol/L Normal 6-16 [facility] Comment on above: Performed By: #### 2 290672, 3238999, 7072614, 79858717, 07598538 #### [facility] [address] [place] [address] Calcium [Mass/Vol] 9.4 mg/dL Normal 8.9-11.1 [facility] Comment on above: Performed By: #### 2 213846, 1057402, 9286911, 96236157, 32559022 #### [facility] [address] [place] [address] Chloride [Moles/Vol] 105 mmol/L Normal 101-111 [facility] Comment on above: Performed By: #### 2 453655, 5923286, 3543050, 15623791, 73036060 #### [facility] [address] [place] [address] CO2 [Moles/Vol] 23 mmol/L Normal 21-31 [facility] Comment on above: Performed By: #### 2 667735, 0257601, 6317679, 12733936, 30609910 #### [facility] [address] [place] [address] Glucose [Mass/Vol] 95 mg/dL Normal 55-199 [facility] Comment on above: Result Comment: If t his glucose result represents a fasting glucose, interpretation should refer to the following reference range: 55-99 mg/dL Performed By: #### 2 223590, 6341413, 1664536, 05974698, 94590414 #### [facility] [address] [place] [address] Potassium [Moles/Vol] 3.8 mmol/L Normal 3.5-5.3 [facility] Comment on above: Performed By: #### 2 527146, 7977635, 4170796, 43569925, 36227261 #### [facility] [address] [place] [address] Sodium [Moles/Vol] 138 mmol/L Normal 135-145 [facility] Comment on above: Performed By: #### 2 171375, 6317565, 2632841, 20194388, 07299005 #### [facility] [address] [place] [address] CBC w/ Auto Diffon 3 Erythrocyte distribution width (RBC) [Ratio] 15.9 % High 10.9-14.2 [facility] Comment on above: Performed By: #### 2 127976, 6996809, 2983391, 65280880, 12501992 #### [facility] [address] [place] [address] Hematocrit (Bld) [Volume fraction] 33.7 % Low 34.0-46.0 [facility] Comment on above: Performed By: #### 2 069211, 3805468, 8924471, 17680296, 31380541 #### [facility] [address] [place] [address] Hemoglobin (Bld) [Mass/Vol] 11.7 g/dL Low 12.0-16.0 [facility] Comment on above: Performed By: #### 2 895790, 8550464, 6063551, 70494970, 52758041 #### [facility] [address] [place] [address] MCH (RBC) [Entitic mass] 29.7 pg Normal 27.0-34.0 [facility] Comment on above: Performed By: #### 2 638871, 3910749, 5277431, 21860068, 32344028 #### [facility] [address] [place] [address] MCHC (RBC) [Mass/Vol] 34.7 g/dL Normal 31.4-36.0 [facility] Comment on above: Performed By: #### 2 295004, 1679235, 4132953, 64148672, 22514116 #### [facility] [address] [place] [address] MCV (RBC) [Entitic vol] 85.8 fL Normal 80.0-100.0 F [facility] Comment on above: Performed By: #### 2 707053, 8280074, 8999213, 34112682, 66898027 #### [facility] [address] [place] [address] Platelet mean volume (Bld) [Entitic vol] 8.2 fL Normal 6.4-10.8 [facility] Comment on above: Performed By: #### 2 905882, 6570773, 3265128, 40133961, 40630502 #### [facility] [address] [place] [address] Platelets (Bld) [#/Vol] 398.0 E9/L Normal 150.0-500.0 [facility] Comment on above: Performed By: #### 2 193579, 8611285, 6698323, 83888022, 55456580 #### [facility] [address] [place] [address] RBC (Bld) [#/Vol] 3.9 E12/L Low 4.3-5.9 [facility] Comment on above: Performed By: #### 2 376590, 7191727, 5558981, 66309786, 34656122 #### [facility] [address] [place] [address] WBC corrected for nucl RBC Auto (Bld) [#/Vol] 4.7 E9/L Normal 4.0-11.0 [facility] Comment on above: Performed By: #### 2 129770, 0296688, 4036744, 51025420, 83420246 #### [facility] [address] [place] [address] CHEMISTRYOrdered By: SYSTEM SYSTEM on 04-24-2023 Anion gap [Moles/Vol] 14 mmol/L Normal 6 - 16 mEq/L F [facility] Remisol Calcium [Mass/Vol] 9.4 mg/dL Normal 8.9 - 11. 1 mg/dL [facility] Remisol Chloride [Moles/Vol] 105 mmol/L Normal 101 - 1 11 mmol/L [facility] CO2 [Moles/Vol] 23 mmol/L Normal 21 - 31 mmol/L [facility] Creatinine [Mass/Vol] 0.7 mg/dL Normal 0.5 - 1.3 mg/dL [facility] Remisol GFR/1.73 sq M.predicted among non-blacks MDRD (S/P/Bld) [Vol rate/Area] 115 mL/min/1.73 m2 Normal >=59mL/min/1 .73 m2 [facility] Chem S Comment on above: Interpretive Data: C hronic kidney disease could be indicated at eGFR's of less than 60 mL/min/1.73m2. Kidney failure is indicated at less than 15 mL/min/1.73m2. Glucose [Mass/Vol] 95 mg/dL Normal 55 - 199 mg/dL [facility] Remisol Comment on above: Interpretive Data: I f this glucose result represents a fasting glucose, interpretation should refer to the following reference range: 55-99 mg/dL Potassium [Moles/Vol] 3.8 mmol/L Normal 3.5 - 5.3 mmol/L [facility] Remisol Sodium [Moles/Vol] 138 mmol/L Normal 135 - 145 mmol/L [facility] Remisol Urea nitrogen [Mass/Vol] 6 mg/dL Normal 5 - 21 mg/dL [facility] Remisol Urea nitrogen/Creatinine [Mass ratio] 9 mg/mg Low 10 - 20 [facility] Remisol CT Abdomen/Pelvis w/ Contras ton 04-24-2023 [...] amount in ml's: 100 Normal [facility] Consent for Treatmenton 04-13 Consent for Treatment [id number] #1.00TIFF Normal [facility] Discharge Instructionson Discharge Instructions [id number] #1.00TIFF Normal [facility] ED Clinical Summaryon 2022 ED Clinical Summary [place] [id number] ED Clinical Summary Person Information Name: LIVIA NOYOLA/Michelle Age: 38 Years : 1985 Sex: Female Language: Cymraes PCP: BETTIE MIRELES Marital Status: Visit Id: [...] 04/24/2023 16:04:18 ADDRESS: [address] [place] [id number] PHYS DOC NOTES: MEDICAL INFORMATION: Prescriptions Given: New Medications [id number], [address] [place] [id number], [phone] oxycodone (oxyCODONE 5 mg Cap) 1 Capsules [...] up: With: Address: When: YOUR OBGYN at [facility] In 3 days 04/27/2023 Comments: Seek [...] acute, left lower quadrant Normal [facility] ED Note-Physicianon 04-24-20 ED Note-Physician Basic Information [...] is benign. I did review on clinic [facility]. She has a visit at [facility] for similar symptoms in the middle [...] for home. She will follow-up with her PRICK STITCHER. Return precautions were discussed. All questions were answered. The patient was discharged home. Assessment/Plan Abdominal pain, acute, left lower quadrant (R10.32: Left lower quadrant pain) Ordered: oxycodone, 5 mg = 1 cap(s), Oral, q6hr, PRN Pain 8-10, X 3 day(s), # 12 cap(s), Refills(s) 0, Pharmacy: [id number], 165.1, cm, 04/24/23 13:32:00 EST, [...] With When Contact Information YOUR OBGYN at [facility] In 3 days 04/27/2023 EST Additional [...] (more content not included)... Normal [facility] Comment on above: Result Comment: Elec tronically [...] these instructions at home: Medicines ? Take vygf-ofa-kuuphwf and prescription medicines only as told by [...] your condition for any changes. ? Take ancp-grq-ticumvy and prescription medicines only as told by [...] provider. Document Revised: 07/18/2020 Document Reviewed: 10/08/2019 [employer] Patient Education ? 2022 [employer] Normal [facility] ED Patient Summaryon 023 ED Patient Summary [place] [id number] Patient Discharge Instructions Person Information Name: LIVIA NOYOLA Age: 38 Years Arrival Date: 04/24/2023 13:12:30 Discharge Diagnosis: Abdominal pain, acute, left lower quadrant Primary Care Physician: ALINE, GENERIC Provider Information Primary Provider: Jignesh Dumont DO [employer] Legal Secretary:None The exam and treatment you received in the Emergency Department were for an urgent problem and are not intended as complete care. It is important that you follow up with a doctor, nurse practitioner, or physician?s produce assistant for ongoing care. If your symptoms [...] Instructions: With: Address: When: YOUR OBGYN at [facility] In 3 days 04/27/2023 Comments: Seek [...] opioids can be used to help relieve tfnejobs-xi-okupuy pain and are often prescribed following a [...] (more content not included)... Normal [facility] HEMATOLOGYOrdered By: SYSTEM SYSTEM on 04-24-2023 Basophils/100 [...] test) Ql Negative (04/24/23 1:55 PM) Normal [facility] Man Sero UA With Cult Reflexon 2022 Bacteria LM Ql (Urine sed) TRACE Normal Trace [facility] Comment on above: Performed By: #### 2 756191, 8745640, 5633307, 50245958, 60929557 #### [facility] [address] [place] [address] Bilirubin Ql (U) Negative Normal Negative [facility] Comment on above: Performed By: #### 2 964487, 0833619, 3286420, 72528824, 63543430 #### [facility] [address] [place] [address] Clarity (U) CLEAR Normal Clear [facility] Comment on above: Performed By: #### 2 655433, 1394049, 8477918, 61369776, 57148396 #### [facility] [address] [place] [address] Color (U) STRAW Abnormal Yellow [facility] Comment on above: Performed By: #### 2 [id number], [id number], [id number], [id number], [id number] #### [facility] [address] [place] [address] Epithelial cells.squamous LM.HPF (Urine sed) [#/Area] 3-4 Normal 0-2 [facility] Comment on above: Performed By: #### 2 [id number], [id number], [id number], [id number], [id number] #### [facility] [address] [place] [address] Glucose Test strip (U) [Mass/Vol] Negative Normal Negative [facility] Comment on above: Performed By: #### 2 360909, 6077818, 6961662, [id number], [id number] #### [facility] [address] [place] [address] Hemoglobin Ql (U) Negative Normal Negative [facility] Comment on above: Performed By: #### 2 967320, 7922401, 8821200, [id number], [id number] #### [facility] [address] [place] [address] Ketones (U) [Mass/Vol] Negative Normal Negative [facility] Comment on above: Performed By: #### 2 335975, 3921460, 0299284, [id number], [id number] #### [facility] [address] [place] [address] [place].plasma/[place]. RBC (Bld) [Mass ratio] 0-3 Normal 0-3 [facility] Comment on above: Performed By: #### 2 180982, 4699197, 7169665, 71271175, [id number] #### [facility] [address] [place] [address] Nitrite Ql (U) Negative Normal Negative [facility] Comment on above: Performed By: #### 2 836094, 2418110, 9023484, [id number], [id number] #### [facility] [address] [place] [address] pH (U) 7.0 [pH] Invalid Interpretation Code 5.0-9.0 [facility] Comment on above: Performed By: #### 2 388142, 3908807, 9903701, 11888853, [id number] #### [facility] [address] [place] [address] Protein (U) [Mass/Vol] Negative Normal Negative [facility] Comment on above: Performed By: #### 2 696649, 3645925, 2673147, 18936729, [id number] #### [facility] [address] [place] [address] Specific gravity (U) [Rel density] <=1.005 Invalid Interpretation Code 1.005-1.030 [facility] Comment on above: Performed By: #### 2 415221, 0122330, 7512583, [id number], [id number] #### [facility] [address] [place] [address] Type of Urine collection method Clean Catch Normal [facility] Comment on above: Performed By: #### 2 924118, 2165318, 1548416, 73589183, [id number] #### [facility] [address] [place] [address] Urobilinogen Qn (U) 0.2 {Ivone'U}/dL Normal 0.0-1.0 [facility] Comment on above: Performed By: #### 2 146953, 5996483, 9308509, [id number], [id number] #### [facility] [address] [place] [address] WBC Auto Ql (U) TRACE Abnormal Negative [facility] Comment on above: Performed By: #### 2 890815, 9596696, 6461032, [id number], [id number] #### [facility] [address] [place] [address] WBC LM.HPF (Urine sed) [#/Area] 0-5 Normal 0-5 [facility] Comment on above: Performed By: #### 2 815657, 0414326, 4243031, 00794023, [id number] #### [facility] [address] [place] [address] URINALYSISOrdered By: Chance Guthrie on 04-24-2023 Bacteria [...] PM) Normal Negative [facility] UA Auto SS [place].plasma/[place]. RBC (Bld) [Mass ratio] 0-3 /HPF Normal 0-3/HPF [facility]A A uto SS Nitrite Ql (U) Negative (04/24/23 2:56 PM) Normal Negative [facility] UA Auto SS pH (U) 7.0 *NA* (04/24/23 2:56 PM) Invalid Interpretation Code 5.0 - 9.0 [facility] UA Auto SS Protein (U) [Mass/Vol] Negative (04/24/23 2:56 PM) Normal Negative [facility] UA Auto SS Specific gravity (U) [Rel density] <=1.005 *NA* (04/24/23 2:56 PM) Invalid Interpretation Code 1.005 - 1.030 [facility] UA Auto SS UA Spec Desc Clean Catch (04/24/23 2:56 PM) Normal [facility] UA Auto SS Urobilinogen Qn (U) 0.4054200 {Ivone'U}/dL Normal 0.0 - 1.0 EU/dL [facility] UA Auto SS WBC Auto Ql (U) Trace *ABN* (04/24/23 2:56 PM) Invalid Interpretation Code Negative [facility] UA Auto SS WBC LM.HPF (Urine sed) [#/Area] 0-5 /HPF Normal 0-5/HPF [facility] UA Auto SS eGFRon 04-24-2023 GFR/1.73 sq M.predicted among non-blacks MDRD (S/P/Bld) [Vol rate/Area] 115 mL/min/1.73 m2 Normal >=59 [facility] Comment on above: Order Comment: Order added by Discern Expert. Result Comment: Tool Builder franklin kidney disease could be indicated at eGFR's of less than 60 mL/min/1.73m2. Kidney failure is indicated at less than 15 mL/min/1.73m2. Performed By: #### 2 495971, 3374805, 7247634, 94075808, [id number] #### [facility] [address] [place] [address] Anisocytosis [Presence] in B lood by Light microscopyOrdered By: Ming Childress on 04-02-2023 Anisocytosis Ql (Bld) Moderate Normal Fir [facility] Comment on above: Performed By: #### U HCG, ADDONUAPLUS #### [address] Automated erythrocytes count in urine sediment (number/area)Ordered By: Ming Childress on 04-02-2023 RBC Auto (Urine sed) [#/Area] 20-49 [HPF] 0-4 [facility] Automated leukocytes count i n urine sediment (number/area)Ordered By: Ming Childress on 04-02-2023 WBC Auto (Urine sed) [#/Area] 3-4 [HPF] 0-4 [facility] Automated urine color determ inationOrdered By: Ming Childress on 04-02-2023 Color (U) Yellow Normal Yellow [facility] Comment on above: Order Comment: Name Collection Type:: Clean-Voided Midstream Performed By: #### U HCG, ADDONUAPLUS #### [address] Basic Metabolic Panelon 03-14 Creatinine Clr Calc Pharmacy 97.72 Normal [facility] Comment on above: Result Comment: PERF ORMED BY: [place] [address] PATHOLOGIST LEAD PHP DEVELOPER FARNAZ ZULETA M.D. Performed By: #### U HCG, ADDONUAPLUS #### [address] GFR/1.73 sq M.predicted MDRD (S/P/Bld) [Vol rate/Area] mL/min/{1.73_m2} Normal [facility] Comment on above: Performed By: #### U HCG, ADDONUAPLUS #### [place] [address] [place] Basophils Auto (Bld) [#/Vol] Ordered By: Ming Childress on 04-02-2023 Basophils (Bld) [#/Vol] N/A F [facility] Basophils/100 WBC Auto (Bld) Ordered By: Ming Childress on 04-02-2023 Basophils/100 WBC (Bld) N/A F [facility] Basophils/100 leukocytes in Blood by Manual countOrdered By: Ming Childress on 04-02-2023 Basophils/100 WBC (Bld) 1 % Normal 0-2 [facility] Comment on above: Performed By: #### U HCG, ADDONUAPLUS #### [facility] [address] Bilirubin Test strip Ql (U)O rdered By: Ming Childress on 04-02-2023 Bilirubin Ql (U) Negative Negative [facility] Calcium [Mass/volume] in Ser um or PlasmaOrdered By: Ming Childress on 04-02-2023 Calcium [Mass/Vol] 9.2 mg/dL Normal 8.6-10.3 [facility] Comment on above: Performed By: #### U HCG, ADDONUAPLUS #### [place] [address] [place] Carbon dioxide, total [Moles /volume] in Serum or PlasmaOrdered By: Ming Childress on 04-02-2023 CO2 [Moles/Vol] 18.5 mmol/L Low 21.0-31.0 [facility] Comment on above: Performed By: #### U HCG, ADDONUAPLUS #### [facility] [address] [place] [address] [place] Chloride [Moles/volume] in S binu or PlasmaOrdered By: Ming Childress on 04-02-2023 Chloride [Moles/Vol] 108 mmol/L High 98-107 [facility] Comment on above: Performed By: #### U HCG, ADDONUAPLUS #### [facility] [address] [place] [address] [place] Creatinine [Mass/volume] in Serum or PlasmaOrdered By: Ming Childress on 04-02-2023 Creatinine [Mass/Vol] 0.84 mg/dL Normal 0.60-1.20 [place] Comment on above: Performed By: #### U HCG, ADDONUAPLUS #### [address] Diff and CBCon 04-02-2023 Hypochromasia Slight Normal [facility] Comment on above: Performed By: #### U HCG, ADDONUAPLUS #### [address] Mean Corpuscular HGB Conc 31.8 g/dL Low 32.0-35.0 [facility] Comment on above: Performed By: #### U HCG, ADDONUAPLUS #### [address] Monocytes/100 WBC (Bld) 18.83 % Normal 0.00-20.00 [facility] Comment on above: Performed By: #### U HCG, ADDONUAPLUS #### [address] Nucleated Red Blood Cell 3 /100{WBC} High 0-0 [facility] Comment on above: Performed By: #### U HCG, ADDONUAPLUS #### [address] Ovalocytes Slight Normal [facility] Comment on above: Performed By: #### U HCG, ADDONUAPLUS #### [address] Platelet Estimate Increased Normal Normal [facility] Comment on above: Performed By: #### U HCG, ADDONUAPLUS #### [address] Platelet Morphology Normal Normal Normal [facility] Comment on above: Result Comment: PERF ORMED BY: [place] [address] PATHOLOGIST LEAD PHP DEVELOPER FARNAZ ZULETA M.D. Performed By: #### U HCG, ADDONUAPLUS #### [address] Poikilocytosis Slight Normal [facility] Comment on above: Performed By: #### U HCG, ADDONUAPLUS #### [address] Polychromasia Moderate Normal [facility] Comment on above: Performed By: #### U HCG, ADDONUAPLUS #### [address] Smudge Cells Slight Normal [facility] Comment on above: Performed By: #### U HCG, ADDONUAPLUS #### [place] [address] [place] Toxic Vacuolation Slight Normal [facility] Comment on above: Performed By: #### U HCG, ADDONUAPLUS #### [place] [address] [place] Dipstick and Microscopicon 1 Appearance (U) Clear Normal Clear [facility] Comment on above: Order Comment: Name Collection Type:: Clean-Voided Midstream Performed By: #### U HCG, ADDONUAPLUS #### [address] Bacteria,Urine None Seen Normal None Seen [facility] Comment on above: Order Comment: Name Collection Type:: Clean-Voided Midstream Performed By: #### U HCG, ADDONUAPLUS #### [address] Bilirubin,Urine Negative Normal Negative [facility] Comment on above: Order Comment: Name Collection Type:: Clean-Voided Midstream Performed By: #### U HCG, ADDONUAPLUS #### [place] [address] [place] Glucose Ql (U) Normal Normal Normal [facility] Comment on above: Order Comment: Name Collection Type:: Clean-Voided Midstream Performed By: #### U HCG, ADDONUAPLUS #### [place] [address] [place] Hyaline Casts,Urine 0-8 Normal 0-8 [facility] Comment on above: Order Comment: Name Collection Type:: Clean-Voided Midstream Performed By: #### U HCG, ADDONUAPLUS #### [address] Ketones Ql (U) Trace High Negative [facility] Comment on above: Order Comment: Name Collection Type:: Clean-Voided Midstream Performed By: #### U HCG, ADDONUAPLUS #### [address] Leukocyte esterase Test strip Ql (U) 1+ High Negative [facility] Comment on above: Order Comment: Name Collection Type:: Clean-Voided Midstream Performed By: #### U HCG, ADDONUAPLUS #### [place] [address] [place] Nitrite,Urine Negative Normal Negative [facility] Comment on above: Order Comment: Name Collection Type:: Clean-Voided Midstream Performed By: #### U HCG, ADDONUAPLUS #### [place] [address] [place] Occult Blood,Urine 3+ High Negative [facility] Comment on above: Order Comment: Name Collection Type:: Clean-Voided Midstream Performed By: #### U HCG, ADDONUAPLUS #### [place] [address] [place] Protein,Urine Negative Normal Negative [facility] Comment on above: Order Comment: Name Collection Type:: Clean-Voided Midstream Performed By: #### U HCG, ADDONUAPLUS #### [place] [address] [place] RBC,Urine 20-49 High 0-4 [facility] Comment on above: Order Comment: Name Collection Type:: Clean-Voided Midstream Performed By: #### U HCG, ADDONUAPLUS #### [place] [address] [place] Specificy [place],Urine 1.018 Normal 1.001-1.030 [facility] Comment on above: Order Comment: Name Collection Type:: Clean-Voided Midstream Performed By: #### U HCG, ADDONUAPLUS #### [place] [address] [place] Squamous Epithelial Cell,Urine 3-4 High 0-2 [facility] Comment on above: Order Comment: Name Collection Type:: Clean-Voided Midstream Performed By: #### U HCG, ADDONUAPLUS #### [address] Urobilinogen,Urine Normal Normal Normal [facility] Comment on above: Order Comment: Name Collection Type:: Clean-Voided Midstream Performed By: #### U HCG, ADDONUAPLUS #### [address] WBC,Urine 3-4 Normal 0-4 [facility] Comment on above: Order Comment: Name Collection Type:: Clean-Voided Midstream Performed By: #### U HCG, ADDONUAPLUS #### [address] Eosinophils Auto (Bld) [#/Vo l]Ordered By: Ming Childress on 04-02-2023 Eosinophils (Bld) [#/Vol] N/A [facility] Eosinophils/100 WBC Auto (Bl d)Ordered By: Ming Childress on 04-02-2023 Eosinophils/100 WBC (Bld) N/A [facility] Eosinophils/100 leukocytes i n Blood by Manual countOrdered By: Ming Childress on 04-02-2023 Eosinophils/100 WBC (Bld) 4 % High 1-3 [facility] Comment on above: Performed By: #### U HCG, ADDONUAPLUS #### [address] Erythrocyte distribution wid th [Ratio] by Automated countOrdered By: Ming Childress on 04-02-2023 Erythrocyte distribution width (RBC) [Ratio] 15.2 % Normal 11.9-15.3 [facility] Comment on above: Performed By: #### U HCG, ADDONUAPLUS #### [address] Erythrocytes [#/volume] in B lood by Automated countOrdered By: Ming Childress on 04-02-2023 RBC (Bld) [#/Vol] 4.67 10*6/uL Normal 3.60-5.00 [facility] Comment on above: Performed By: #### U HCG, ADDONUAPLUS #### [address] Glucose [Mass/volume] in Ser um or PlasmaOrdered By: Ming Childress on 04-02-2023 Glucose [Mass/Vol] 94 mg/dL Normal 70-100 [facility] Comment on above: ADA recommended refe rence rangeRandom Glucose Reference Range is dependent on time and content of last meal. Glucose of more than 200 mg/dL in a nonstressed, ambulatory subject supports the diagnosis of Diabetes Mellitus. Result Comment: [place] om Glucose Reference Range is dependent on time and content of last meal. Glucose of more than 200 mg/dL in a nonstressed, ambulatory subject supports the diagnosis of Diabetes Mellitus. ADA recommended reference range Performed By: #### U HCG, ADDONUAPLUS #### [address] HCG ( test) IA.rapi d Ql (U)Ordered By: Ming Childress on 04-02-2023 HCG ( test) Ql (U) Negative [facility] HCG,Urineon 04-02-2023 Beta HCG ( test) Ql (U) Negative Normal [facility] Comment on above: Order Comment: Name Collection Type:: Clean-Voided Midstream Result Comment: PERF ORMED BY: [address] [address] PATHOLOGIST LEAD PHP DEVELOPER FARNAZ ZULETA M.D. Performed By: #### U HCG, ADDONUAPLUS #### [address] Hematocrit [Volume Fraction] of Blood by Automated countOrdered By: Ming Childress on 04-02-2023 Hematocrit (Bld) [Volume fraction] 36.1 % Normal 34.0-46.4 [facility] Comment on above: Performed By: #### U HCG, ADDONUAPLUS #### [address] [place] [address] [place] Hemoglobin [Mass/volume] in BloodOrdered By: Ming Childress on 04-02-2023 Hemoglobin (Bld) [Mass/Vol] 11.5 g/dL Low 11.8-15.4 [facility] Comment on above: Performed By: #### U HCG, ADDONUAPLUS #### [facility] [address] Hypochromia LM Ql (Bld)Order ed By: Ming Childress on 04-02-2023 Hypochromia Ql (Bld) Slight [facility] Ketones Auto test strip (U) [Mass/Vol]Ordered By: Ming Childress on 04-02-2023 Ketones (U) [Mass/Vol] Trace Negative [facility] - UrinalysisOrder ed By: Ming Childress on 04-02-2023 Hyaline casts LM Ql (Urine sed) 0-8 [LPF] 0-8 [facility] Leukocytes [#/volume] correc flo for nucleated erythrocytes in Blood by Automated counOrdered By: Ming Childress on 04-02-2023 WBC corrected for nucl RBC Auto (Bld) [#/Vol] 6.8 10*3/uL 3.8-11.6 [facility] Leukocytes [#/volume] in Blo od by Automated countOrdered By: Ming Childress on 04-02-2023 WBC (Bld) [#/Vol] 6.8 10*3/uL Normal 3.8-11.6 [facility] Comment on above: Performed By: #### U HCG, ADDONUAPLUS #### [facility] [address] [place] [address] [place] Lymphocytes Auto (Bld) [#/Vo l]Ordered By: Ming Childress on 04-02-2023 Lymphocytes (Bld) [#/Vol] N/A [facility] Lymphocytes/100 WBC Auto (Bl d)Ordered By: Ming Childress on 04-02-2023 Lymphocytes/100 WBC (Bld) N/A [facility] Lymphocytes/100 leukocytes i n Blood by Manual countOrdered By: Ming Childress on 04-02-2023 Lymphocytes/100 WBC (Bld) 43 % High 18-42 [facility] Comment on above: Performed By: #### U HCG, ADDONUAPLUS #### [facility] [address] [place] [address] MCH [Entitic mass] by Automa flo countOrdered By: Ming Childress on 04-02-2023 MCH (RBC) [Entitic mass] 24.5 pg Low 24.7-34.3 [facility] Comment on above: Performed By: #### U HCG, ADDONUAPLUS #### [facility] [address] [place] [address] MCHC Auto (RBC) [Mass/Vol]Or dered By: Ming Childress on 04-02-2023 MCHC (RBC) [Mass/Vol] 31.8 g/dL 32.0-35.0 [place] MCV [Entitic volume] by Auto mated countOrdered By: Ming Childress on 04-02-2023 MCV (RBC) [Entitic vol] 77.3 fL Low 80-100 [facility] Comment on above: Performed By: #### U HCG, ADDONUAPLUS #### [facility] [address] [place] [address] Manual blood segmented neutr ophils/100 leukocytesOrdered By: Ming Childress on 04-02-2023 Segmented neutrophils/100 WBC (Bld) 47 % Low 50-70 [facility] Comment on above: Performed By: #### U HCG, ADDONUAPLUS #### [facility] [address] [place] [address] Monocyte distribution width [Entitic volume] in Blood by AutomatedOrdered By: Ming Childress on 04-02-2023 Monocyte distribution width Auto (Bld) [Entitic vol] 18.83 % 0.00-20.00 [facility] Monocytes Auto (Bld) [#/Vol] Ordered By: Ming Childress on 04-02-2023 Monocytes (Bld) [#/Vol] N/A F [facility] Monocytes/100 WBC Auto (Bld) Ordered By: Ming Childress on 04-02-2023 Monocytes/100 WBC (Bld) N/A F [facility] Monocytes/100 leukocytes in Blood by Manual countOrdered By: Ming Childress on 04-02-2023 Monocytes/100 WBC (Bld) 5 % Normal 2-11 [facility] Comment on above: Performed By: #### U HCG, ADDONUAPLUS #### [facility] [address] Neutrophils Auto (Bld) [#/Vo l]Ordered By: Ming Childress on 04-02-2023 Neutrophils (Bld) [#/Vol] N/A [facility] Neutrophils/100 WBC Auto (Bl d)Ordered By: Ming Childress on 04-02-2023 Neutrophils/100 WBC (Bld) N/A [facility] Nitrite Test strip Ql (U)Ord ered By: Ming Childress on 04-02-2023 Nitrite Ql (U) Negative Negative [facility] No Panel InformationOrdered By: Ming Childress on 04-02-2023 Estimated GFR (CKD-EPI) > 60.0 mL/Min [facility] Creatinine Clearance (Chem 97.72 [facility] Nucleated RBC/100 WBC Manual cnt (Bld) [Ratio]Ordered By: Ming Childress on 04-02-2023 Nucleated RBC/100 WBC (Bld) [Ratio] 3 /100{WBC} 0-0 [facility] Nucleated erythrocytes [Pres ence] in Blood by Automated countOrdered By: Ming Childress on 04-02-2023 Nucleated RBC Auto Ql (Bld) N/A [facility] Ovalocyte detectionOrdered B y: Ming Childress on 04-02-2023 Ovalocytes LM Ql (Bld) Slight [facility] Platelet adequacy [Presence] in Blood by Light microscopyOrdered By: Ming Childress on 04-02-2023 Platelets LM Ql (Bld) Increased Normal Fir [facility] Platelet mean volume [Entiti c volume] in Blood by Automated countOrdered By: Ming Childress on 04-02-2023 Platelet mean volume (Bld) [Entitic vol] 8.1 fL Normal 6.3-10.7 [facility] Comment on above: Result Comment: PERF ORMED BY: [place] [address] PATHOLOGIST LEAD PHP DEVELOPER FARNAZ ZULETA M.D. Performed By: #### U HCG, ADDONUAPLUS #### [facility] [address] [place] [address] Platelet morphology finding [Identifier] in BloodOrdered By: Ming Childress on 04-02-2023 Platelet morphology finding Nom (Bld) Normal Normal [facility] Platelets [#/volume] in Bloo d by Automated countOrdered By: Ming Childress on 04-02-2023 Platelets (Bld) [#/Vol] 492 10*3/uL High 150-450 [facility] Comment on above: Performed By: #### U HCG, ADDONUAPLUS #### [address] Poikilocytosis [Presence] in Blood by Light microscopyOrdered By: Ming Childress on 04-02-2023 Poikilocytosis LM Ql (Bld) Slight [facility] Polychromasia [Presence] in Blood by Light microscopyOrdered By: Ming Childress on 04-02-2023 Polychromasia LM Ql (Bld) Moderate [facility] Potassium [Moles/volume] in Serum or PlasmaOrdered By: Ming Childress on 04-02-2023 Potassium [Moles/Vol] 3.7 mmol/L Normal 3.5-5.1 [place] Comment on above: Performed By: #### U HCG, ADDONUAPLUS #### [facility] [address] [place] [address] [place] Protein Auto test strip (U) [Mass/Vol]Ordered By: Ming Childress on 04-02-2023 Protein (U) [Mass/Vol] Negative Negative [facility] RBC morphologyOrdered By: Carmen ttvicky Childress on 04-02-2023 RBC morphology finding Nom (Bld) N/A [facility] Serum or plasma anion gap de terminationOrdered By: Ming Childress on 04-02-2023 Anion gap [Moles/Vol] 14.2 mmol/L Normal 6.0-15.0 [facility] Comment on above: Performed By: #### U HCG, ADDONUAPLUS #### [facility] [address] [place] [address] Smudge cell detectionOrdered By: Ming Childress on 04-02-2023 Smudge cells LM Ql (Bld) [facility] Sodium [Moles/volume] in Ser um or PlasmaOrdered By: Ming Childress on 04-02-2023 Sodium [Moles/Vol] 137 mmol/L Normal 136-145 [facility] Comment on above: Performed By: #### U HCG, ADDONUAPLUS #### [facility] [address] [place] [address] Specific gravity Auto test s trip (U) [Rel density]Ordered By: Ming Childress on 04-02-2023 Specific gravity (U) [Rel density] 1.018 1.001-1.030 [facility] Squamous epithelial cells de tection in urine sediment by light microscopyOrdered By: Ming Childress on 04-02-2023 Epithelial cells.squamous LM Ql (Urine sed) 3-4 [HPF] 0-2 [facility] Toxic leukocyte vacuolation detectionOrdered By: Ming Childress on 04-02-2023 Leukocyte toxic vacuoles LM Ql (Bld) [facility] Urea nitrogen [Mass/volume] in Serum or PlasmaOrdered By: Ming Childress on 04-02-2023 Urea nitrogen [Mass/Vol] 9 mg/dL Normal 7-25 [facility] Comment on above: Performed By: #### U HCG, ADDONUAPLUS #### [facility] [address] [place] [address] Urine bacteria detection by automated methodOrdered By: Ming Childress on 04-02-2023 Bacteria Auto Ql (U) None seen None Seen [facility] [facility] Urine clarity by refractomet ry automatedOrdered By: Ming Childress on 04-02-2023 Clarity Refractometry automated (U) Clear Clear [facility] Urine glucose measurement by automated test strip (mass/volume)Ordered By: Ming Childress on 04-02-2023 Glucose Auto test strip (U) [Mass/Vol] Normal mg/dL Normal [facility] Urine hemoglobin detection b y automated test stripOrdered By: Ming Childress on 04-02-2023 Hemoglobin Auto test strip Ql (U) 3+ Negative [facility] Urine leukocyte esterase det ection by automated test stripOrdered By: Ming Childress on 04-02-2023 Leukocyte esterase Auto test strip Ql (U) 1+ Negative [facility] Urine pH measurement by auto mated test stripOrdered By: Ming Childress on 04-02-2023 pH (U) 6.0 [pH] Normal 5.0-9.0 [facility] Comment on above: Order Comment: Name Collection Type:: Clean-Voided Midstream Performed By: #### U HCG, ADDONUAPLUS #### [facility] [address] Urobilinogen Auto test strip (U) [Mass/Vol]Ordered By: Ming Childress on 04-02-2023 Urobilinogen (U) [Mass/Vol] Normal mg/dL Normal [facility] Alanine aminotransferase [En zymatic activity/volume] in Serum or PlasmaOrdered By: Ming Childress on 03-29-2023 ALT [Catalytic activity/Vol] 14 U/L Normal 7-52 [facility] Comment on above: Performed By: #### B MP, LIPASE, HEPATIC #### [facility] [address] Albumin [Mass/volume] in Ser um or Plasma by Bromocresol green (BCG) dye binding methoOrdered By: Ming Childress on 03-29-2023 Albumin BCG dye [Mass/Vol] 4.0 g/dL 3.5-5.7 [facility] Alkaline phosphatase [Enzyma tic activity/volume] in Serum or PlasmaOrdered By: Ming Childress on 03-29-2023 ALP [Catalytic activity/Vol] 61 U/L Normal 34-104 [facility] Comment on above: Performed By: #### B MP, LIPASE, HEPATIC #### [address] Aspartate aminotransferase [ Enzymatic activity/volume] in Serum or PlasmaOrdered By: Ming Childress on 03-29-2023 AST [Catalytic activity/Vol] 19 U/L Normal 13-39 [facility] Comment on above: Performed By: #### B MP, LIPASE, HEPATIC #### [address] Automated basophil %Ordered By: Ming Childress on 03-29-2023 Basophils/100 WBC (Bld) 1.3 % Normal . [facility] Comment on above: Performed By: #### U HCG, ADDONUAPLUS #### [address] Automated basophil countOrde red By: Ming Childress on 03-29-2023 Basophils (Bld) [#/Vol] 0.1 10*3/uL Normal 0.0-0.2 [facility] Comment on above: Result Comment: PERF ORMED BY: [place] [address] PATHOLOGIST LEAD PHP DEVELOPER FARNAZ ZULETA M.D. Performed By: #### U HCG, ADDONUAPLUS #### [address] Automated blood monocyte cou ntOrdered By: Ming Childress on 03-29-2023 Monocytes (Bld) [#/Vol] 0.6 10*3/uL Normal 0.0-0.8 [facility] Comment on above: Performed By: #### U HCG, ADDONUAPLUS #### [address] Automated eosinophil %Ordere d By: Ming Childress on 03-29-2023 Eosinophils/100 WBC (Bld) 1.8 % Normal . [facility] Comment on above: Performed By: #### U HCG, ADDONUAPLUS #### [address] Automated eosinophil countOr dered By: Ming Childress on 03-29-2023 Eosinophils (Bld) [#/Vol] 0.1 10*3/uL Normal 0.0-0.45 [facility] Comment on above: Performed By: #### U HCG, ADDONUAPLUS #### [address] Automated monocyte %Ordered By: Ming Childress on 03-29-2023 Monocytes/100 WBC (Bld) 7.3 % Normal . [facility] Comment on above: Performed By: #### U HCG, ADDONUAPLUS #### [address] Automated neutrophil %Ordere d By: Ming Childress on 03-29-2023 Neutrophils/100 WBC (Bld) 46.8 % Normal . [facility] Comment on above: Performed By: #### U HCG, ADDONUAPLUS #### [address] Automated urine color determ inationOrdered By: Ming Childress on 03-29-2023 Color (U) Yellow Normal Yellow [facility] Comment on above: Order Comment: Name Collection Type:: Clean-Voided Midstream Performed By: #### H CGQNT #### [address] Basic Metabolic Panelon 03-13 Creatinine Clr Calc Pharmacy 134.47 Normal [facility] Comment on above: Performed By: #### B MP, LIPASE, HEPATIC #### [address] GFR/1.73 sq M.predicted MDRD (S/P/Bld) [Vol rate/Area] mL/min/{1.73_m2} Normal [facility] Comment on above: Performed By: #### B MP, LIPASE, HEPATIC #### [address] Bilirubin Test strip Ql (U)O rdered By: Ming Childress on 03-29-2023 Bilirubin Ql (U) Negative Negative [facility] Bilirubin.direct [Mass/volum e] in Serum or PlasmaOrdered By: Ming Monroe on 03-29-2023 Bilirubin.direct [Mass/Vol] 0.10 mg/dL 0.03-0.18 [facility] Bilirubin.total [Mass/volume ] in Serum or PlasmaOrdered By: Ming Monroe on 03-29-2023 Bilirubin [Mass/Vol] 0.3 mg/dL Normal 0.3-1.0 [facility] Comment on above: Performed By: #### B MP, LIPASE, HEPATIC #### [facility] [address] abdomen pelvis w conon CT abdomen pelvis w con [facility] [place] [address] [place] [address] CT Scan Report Signed Patient: Livia Noyola MR#: [id number] 757 : 1985 Acct:[id number] Age/Sex: 38 / F ADM Date: 03/29/23 Loc: 3T Room: [address] [place] [address] Type: ADM IN Attending Dr: Christi Aquino [...] Alesha Tejada M.D.03/29/2023 7:14 AM Dictation Location: [place] [address] Transcribed By: [facility] 03/29/23713 Dictated By: Alesha Tejada MD 03/29/23709 Signed By: 03/29/23713 Normal [facility] Calcium [Mass/volume] in Ser um or PlasmaOrdered By: Ming Childress on 03-29-2023 Calcium [Mass/Vol] 8.9 mg/dL Normal 8.6-10.3 [facility] Comment on above: Performed By: #### B MP, LIPASE, HEPATIC #### [address] Carbon dioxide, total [Moles /volume] in Serum or PlasmaOrdered By: Ming Childress on 03-29-2023 CO2 [Moles/Vol] 22.2 mmol/L Normal 21.0-31.0 [facility] Comment on above: Performed By: #### B MP, LIPASE, HEPATIC #### [facility] [address] Chloride [Moles/volume] in S binu or PlasmaOrdered By: Ming Childress on 03-29-2023 Chloride [Moles/Vol] 107 mmol/L Normal 98-107 [facility] Comment on above: Performed By: #### B MP, LIPASE, HEPATIC #### [facility] [address] Complete Blood Count Auto Di ffon 03-29-2023 Mean Corpuscular HGB Conc 32.0 g/dL Normal 32.0-35.0 [facility] Comment on above: Performed By: #### U HCG, ADDONUAPLUS #### [facility] [address] [place] [address] NRBC% 0.1 /100{WBC} Normal 0-0.5 [facility] Comment on above: Performed By: #### U HCG, ADDONUAPLUS #### [address] Creatinine [Mass/volume] in Serum or PlasmaOrdered By: Ming Childress on 03-29-2023 Creatinine [Mass/Vol] 0.63 mg/dL Normal 0.60-1.20 [place] Comment on above: Performed By: #### B MP, LIPASE, HEPATIC #### [facility] [address] [place] [address] Erythrocyte distribution wid th [Ratio] by Automated countOrdered By: Ming Childress on 03-29-2023 Erythrocyte distribution width (RBC) [Ratio] 15.2 % Normal 11.9-15.3 [facility] Comment on above: Performed By: #### U HCG, ADDONUAPLUS #### [place] [address] [place] Erythrocytes [#/volume] in B lood by Automated countOrdered By: Ming Childress on 03-29-2023 RBC (Bld) [#/Vol] 4.34 10*6/uL Normal 3.60-5.00 [facility] Comment on above: Performed By: #### U HCG, ADDONUAPLUS #### [facility] [address] [place] [address] [place] Glucose [Mass/volume] in Ser um or PlasmaOrdered By: Ming Childress on 03-29-2023 Glucose [Mass/Vol] 90 mg/dL Normal 70-100 [facility] Comment on above: ADA recommended refe rence rangeRandom Glucose Reference Range is dependent on time and content of last meal. Glucose of more than 200 mg/dL in a nonstressed, ambulatory subject supports the diagnosis of Diabetes Mellitus. Result Comment: [place] Glucose Reference Range is dependent on time and content of last meal. Glucose of more than 200 mg/dL in a nonstressed, ambulatory subject supports the diagnosis of Diabetes Mellitus. ADA recommended reference range Performed By: #### B MP, LIPASE, HEPATIC #### [address] HCG ( test) IA.rapi d Ql (U)Ordered By: Ming Childress on 03-29-2023 HCG ( test) Ql (U) Negative [facility] HCG,Urineon 03-29-2023 Beta HCG ( test) Ql (U) Negative Normal [facility] Comment on above: Order Comment: Name Collection Type:: Clean-Voided Midstream Result Comment: PERF ORMED BY: [place] [address] PATHOLOGIST LEAD PHP DEVELOPER FARNAZ ZULETA M.D. Performed By: #### H CGQNT #### [address] Hematocrit [Volume Fraction] of Blood by Automated countOrdered By: Ming Childress on 03-29-2023 Hematocrit (Bld) [Volume fraction] 32.6 % Low 34.0-46.4 [facility] Comment on above: Performed By: #### U HCG, ADDONUAPLUS #### [address] Hemoglobin [Mass/volume] in BloodOrdered By: Ming Childress on 03-29-2023 Hemoglobin (Bld) [Mass/Vol] 10.4 g/dL Low 11.8-15.4 [facility] Comment on above: Performed By: #### U HCG, ADDONUAPLUS #### [address] Hepatic Panelon 03-29-2023 Albumin [Mass/Vol] 4.0 g/dL Normal 3.5-5.7 [facility] Comment on above: Performed By: #### B MP, LIPASE, HEPATIC #### [place] [address] Bilirubin,Indirect 0.2 mg/dL Normal [facility] Comment on above: Performed By: #### B MP, LIPASE, HEPATIC #### [address] Bilirubin.indirect [Mass/Vol] 0.10 mg/dL Normal 0.03-0.18 [facility] Comment on above: Performed By: #### B MP, LIPASE, HEPATIC #### [address] Ketones Auto test strip (U) [Mass/Vol]Ordered By: Ming Childress on 03-29-2023 Ketones (U) [Mass/Vol] Negative Negative [facility] Lactate [Moles/volume] in Se rum or PlasmaOrdered By: Megan Muniz on 03-29-2023 Lactate [Moles/Vol] 0.8 mmol/L Normal 0.5-2.2 [facility] Comment on above: Result Comment: PERF ORMED BY: [place] [address] PATHOLOGIST LEAD PHP DEVELOPER FARNAZ ZULETA M.D. Performed By: #### H CGQNT #### [address] Leukocytes [#/volume] correc flo for nucleated erythrocytes in Blood by Automated counOrdered By: Ming Childress on 03-29-2023 WBC corrected for nucl RBC Auto (Bld) [#/Vol] 7.5 10*3/uL 3.8-11.6 [facility] Leukocytes [#/volume] in Blo od by Automated countOrdered By: Ming Childress on 03-29-2023 WBC (Bld) [#/Vol] 7.5 10*3/uL Normal 3.8-11.6 [facility] Comment on above: Performed By: #### U HCG, ADDONUAPLUS #### [address] Lipase [Enzymatic activity/v olume] in Serum or PlasmaOrdered By: Ming Childress on 03-29-2023 Lipase [Catalytic activity/Vol] 30.0 U/L Normal 11.0-82.0 [facility] Comment on above: Result Comment: PERF ORMED BY: [place] [address] PATHOLOGIST LEAD PHP DEVELOPER FARNAZ ZULETA M.D. Performed By: #### B MP, LIPASE, HEPATIC #### [facility] [address] [place] [address] Lymphocytes [#/volume] in Bl ood by Automated countOrdered By: Ming Childress on 03-29-2023 Lymphocytes (Bld) [#/Vol] 3.2 10*3/uL Normal 1.00-4.8 [facility] Comment on above: Performed By: #### U HCG, ADDONUAPLUS #### [facility] [address] [place] [address] Lymphocytes/100 leukocytes i n Blood by Automated countOrdered By: Ming Childress on 03-29-2023 Lymphocytes/100 WBC (Bld) 42.8 % Normal . [facility] Comment on above: Performed By: #### U HCG, ADDONUAPLUS #### [facility] [address] [place] [address] MCH [Entitic mass] by Automa flo countOrdered By: Ming Childress on 03-29-2023 MCH (RBC) [Entitic mass] 24.1 pg Low 24.7-34.3 [facility] Comment on above: Performed By: #### U HCG, ADDONUAPLUS #### [facility] [address] [place] [address] MCHC Auto (RBC) [Mass/Vol]Or dered By: Ming Childress on 03-29-2023 MCHC (RBC) [Mass/Vol] 32.0 g/dL 32.0-35.0 [place] MCV [Entitic volume] by Auto mated countOrdered By: Ming Childress on 03-29-2023 MCV (RBC) [Entitic vol] 75.2 fL Low 80-100 [facility] Comment on above: Performed By: #### U HCG, ADDONUAPLUS #### [facility] [address] Neutrophils [#/volume] in Bl ood by Automated countOrdered By: Ming Childress on 03-29-2023 Neutrophils (Bld) [#/Vol] 3.5 10*3/uL Normal 1.8-7.7 [facility] Comment on above: Performed By: #### U HCG, ADDONUAPLUS #### [address] Nitrite Test strip Ql (U)Ord ered By: Ming Childress on 03-29-2023 Nitrite Ql (U) Negative Negative [facility] No Panel InformationOrdered By: Ming Childress on 03-29-2023 Estimated GFR (CKD-EPI) > 60.0 mL/Min [facility] Creatinine Clearance (Chem 134.47 [facility] Nucleated erythrocytes [Pres ence] in Blood by Automated countOrdered By: Ming Childress on 03-29-2023 Nucleated RBC Auto Ql (Bld) 0.1 /100{WBC} 0-0.5 [facility] Platelet mean volume [Entiti c volume] in Blood by Automated countOrdered By: Ming Childress on 03-29-2023 Platelet mean volume (Bld) [Entitic vol] 8.0 fL Normal 6.3-10.7 [facility] Comment on above: Performed By: #### U HCG, ADDONUAPLUS #### [facility] [address] [place] [address] Platelets [#/volume] in Bloo d by Automated countOrdered By: Ming Childress on 03-29-2023 Platelets (Bld) [#/Vol] 396 10*3/uL Normal 150-450 [facility] Comment on above: Performed By: #### U HCG, ADDONUAPLUS #### [facility] [address] [place] [address] Potassium [Moles/volume] in Serum or PlasmaOrdered By: Ming Childress on 03-29-2023 Potassium [Moles/Vol] 3.6 mmol/L Normal 3.5-5.1 [place] Comment on above: Performed By: #### B MP, LIPASE, HEPATIC #### [address] Protein Auto test strip (U) [Mass/Vol]Ordered By: Ming Childress on 03-29-2023 Protein (U) [Mass/Vol] Negative Negative [facility] Protein [Mass/volume] in Ser um or PlasmaOrdered By: Ming Childress on 03-29-2023 Protein [Mass/Vol] 6.8 g/dL Normal 6.4-8.9 [facility] Comment on above: Performed By: #### B MP, LIPASE, HEPATIC #### [address] Serum globulin measurement b y calculation (mass/volume)Ordered By: Ming Childress on 03-29-2023 Globulin (S) [Mass/Vol] 2.8 g/dL Normal [facility] Comment on above: Performed By: #### B MP, LIPASE, HEPATIC #### [address] Serum or plasma albumin/glob ulin mass ratioOrdered By: Ming Childress on 03-29-2023 Albumin/Globulin [Mass ratio] 1.4 {ratio} [facility] Comment on above: Performed By: #### B MP, LIPASE, HEPATIC #### [address] Serum or plasma anion gap de terminationOrdered By: Ming Childress on 03-29-2023 Anion gap [Moles/Vol] 12.4 mmol/L Normal 6.0-15.0 [facility] Comment on above: Performed By: #### B MP, LIPASE, HEPATIC #### [address] Serum or plasma non-glucuron idated bilirubin measurement (mass/volume)Ordered By: Ming Childress on 03-29-2023 Bilirubin.indirect [Mass/Vol] 0.2 mg/dL [facility] Sodium [Moles/volume] in Ser um or PlasmaOrdered By: Ming Childress on 03-29-2023 Sodium [Moles/Vol] 138 mmol/L Normal 136-145 [facility] Comment on above: Performed By: #### B MP, LIPASE, HEPATIC #### [facility] [address] [place] [id number] [facility] Specific gravity Auto test s trip (U) [Rel density]Ordered By: Ming Childress on 03-29-2023 Specific gravity (U) [Rel density] 1.003 1.001-1.030 [facility] US transvaginalon 03-29-2023 US transvaginal [facility] [place] [address] [place] [address] Ultrasound Report Signed Patient: Livia Noyola MR#: [id number] 757 : 1985 Acct:[id number] Age/Sex: 38 / F ADM Date: 03/29/23 Loc: Room: [address] [place] [address] Type: ADM IN Attending Dr: Christi Aquino MD Ordering Provider: Ming Childress DO Date of Service: 03/29/23 US/US transvaginal: r/o L ovarian torsion ([id number]) US/US pelvic complete: PAIN Copies to: DO [...] Davi Figueroa M.D.03/29/2023 8:20 AM Dictation Location: [place] [address] Tech: Brooke Hodge Transcribed By: AMBER 03/29/23819 Dictated By: Davi Figueroa DO 03/29/23815 Signed By: 03/29/23819 Normal [facility] Urea nitrogen [Mass/volume] in Serum or PlasmaOrdered By: Ming Childress on 03-29-2023 Urea nitrogen [Mass/Vol] 6 mg/dL Low 7-25 [facility] Comment on above: Performed By: #### B MP, LIPASE, HEPATIC #### [facility] [address] [place] [id number] [place] Urinalysison 03-29-2023 Appearance (U) Clear Normal Clear [facility] Comment on above: Order Comment: Name Collection Type:: Clean-Voided Midstream Performed By: #### H CGQNT #### [place] [address] [place] Bilirubin,Urine Negative Normal Negative [facility] Comment on above: Order Comment: Name Collection Type:: Clean-Voided Midstream Performed By: #### H CGQNT #### [place] [id number] [place] Glucose Ql (U) Normal Normal Normal [facility] Comment on above: Order Comment: Name Collection Type:: Clean-Voided Midstream Performed By: #### H CGQNT #### [place] [id number] [facility] Ketones Ql (U) Negative Normal Negative [facility] Comment on above: Order Comment: Name Collection Type:: Clean-Voided Midstream Performed By: #### H CGQNT #### [place] [id number] [place] Leukocyte esterase Test strip Ql (U) Negative Normal Negative [facility] Comment on above: Order Comment: Name Collection Type:: Clean-Voided Midstream Performed By: #### H CGQNT #### [place] [id number] [place] Nitrite,Urine Negative Normal Negative [facility] Comment on above: Order Comment: Name Collection Type:: Clean-Voided Midstream Performed By: #### H CGQNT #### [facility] [address] [place] [address] [place] Occult Blood,Urine Negative Normal Negative [facility] Comment on above: Order Comment: Name Collection Type:: Clean-Voided Midstream Performed By: #### H CGQNT #### [place] [address] [place] Protein,Urine Negative Normal Negative [facility] Comment on above: Order Comment: Name Collection Type:: Clean-Voided Midstream Performed By: #### H CGQNT #### [address] Specificy [place],Urine 1.003 Normal 1.001-1.030 [facility] Comment on above: Order Comment: Name Collection Type:: Clean-Voided Midstream Performed By: #### H CGQNT #### [address] Urobilinogen,Urine Normal Normal Normal [facility] Comment on above: Order Comment: Name Collection Type:: Clean-Voided Midstream Performed By: #### H CGQNT #### [address] Urine clarity by refractomet ry automatedOrdered By: Ming Childress on 03-29-2023 Clarity Refractometry automated (U) Clear Clear [facility] Urine glucose measurement by automated test strip (mass/volume)Ordered By: Ming Childress on 03-29-2023 Glucose Auto test strip (U) [Mass/Vol] Normal mg/dL Normal [facility] Urine hemoglobin detection b y automated test stripOrdered By: Ming Childress on 03-29-2023 Hemoglobin Auto test strip Ql (U) Negative Negative [facility] Urine leukocyte esterase det ection by automated test stripOrdered By: Ming Childress on 03-29-2023 Leukocyte esterase Auto test strip Ql (U) Negative Negative [facility] Urine pH measurement by auto mated test stripOrdered By: Ming Childress on 03-29-2023 pH (U) 7.5 [pH] Normal 5.0-9.0 [facility] Comment on above: Order Comment: Name Collection Type:: Clean-Voided Midstream Performed By: #### H CGQNT #### [facility] [address] [place] [address] Urobilinogen Auto test strip (U) [Mass/Vol]Ordered By: Ming Childress on 03-29-2023 Urobilinogen (U) [Mass/Vol] Normal mg/dL Normal [facility] Automated urine color determ inationOrdered By: Elier Jackson on 02-06-2023 Color (U) Yellow Normal Yellow [facility] Comment on above: Order Comment: Name Collection Type:: Clean-Voided Midstream Performed By: #### U A, UHCG #### [address] Bilirubin Test strip Ql (U)O rdered By: Elier Jackson on 02-06-2023 Bilirubin Ql (U) Negative Negative [facility] CT abdomen pelvis w conon CT abdomen pelvis w con [facility] [place] [address] [place] [address] CT Scan Report Signed Patient: Livia Noyola MR#: [id number] 757 : 1985 Acct:[id number] Age/Sex: 38 / F ADM Date: 02/05/23 Loc: ER Room: Type: [facility] ER Attending Dr: Copies to: [...] findings. Impression dictated by: Dennis Betancur Jr., D.OEbenezer02/06/2023 11:23 AM Dictation Location: [place] [address] Transcribed By: [facility] 02/06/23 1123 Dictated By: Dennis Betancur Jr, DO 02/06/23 1109 Signed By: 02/06/23 1123 Normal [facility] HCG ( test) IA.rapi d Ql (U)Ordered By: Elier Jackson on 02-06-2023 HCG ( test) Ql (U) Negative [facility] HCG,Urineon 02-06-2023 Beta HCG ( test) Ql (U) Negative Normal [facility] Comment on above: Order Comment: Name Collection Type:: Clean-Voided Midstream Result Comment: PERF ORMED BY: [place] [address] PATHOLOGIST LEAD PHP DEVELOPER FARNAZ ZULETA M.D. Performed By: #### U A, [facility] #### [address] Ketones Auto test strip (U) [Mass/Vol]Ordered By: Elier Jackson on 02-06-2023 Ketones (U) [Mass/Vol] Negative Negative [facility] Nitrite Test strip Ql (U)Ord ered By: Elier Jackson on 02-06-2023 Nitrite Ql (U) Negative Negative [facility] Protein Auto test strip (U) [Mass/Vol]Ordered By: Elier Jackson on 02-06-2023 Protein (U) [Mass/Vol] Negative Negative [facility] Specific gravity Auto test s trip (U) [Rel density]Ordered By: Elier Jackson on 02-06-2023 Specific gravity (U) [Rel density] 1.007 1.001-1.030 [facility] US pelvic completeon 023 US pelvic complete [facility] [place] [address] [place], [place] [id number] Ultrasound Report Signed Patient: Livia Nooyla MR#: [id number] 757 : 1985 Acct:[id number] Age/Sex: 38 / F ADM Date: 02/05/23 Loc: ER Room: Type: [facility] ER Attending Dr: Ordering Provider: Elier Jackson DO Date of Service: 02/06/23 US/US pelvic complete: adnexa pain ([id number]) US/US transvaginal: . Copies to: Elier Jackson [...] Betancur Jr., D.OEbenezer02/06/2023 11:25 AM Dictation Location: [place] [address] Tech: Jada Webb Transcribed By: [facility] 02/06/23 112 Dictated By: Dennis Betancur Jr, DO 02/06/231122 Signed By: 02/06/23 112 Normal [facility] Urinalysison 02-06-2023 Appearance (U) Clear Normal Clear [facility] Comment on above: Order Comment: Name Collection Type:: Clean-Voided Midstream Performed By: #### U A, UHCG #### [place] [id number] [place] Bilirubin,Urine Negative Normal Negative [facility] Comment on above: Order Comment: Name Collection Type:: Clean-Voided Midstream Performed By: #### U A, UHCG #### [place] [id number] [facility] Glucose Ql (U) Normal Normal Normal [facility] Comment on above: Order Comment: Name Collection Type:: Clean-Voided Midstream Performed By: #### U A, UHCG #### [place] [address] [place] Ketones Ql (U) Negative Normal Negative [facility] Comment on above: Order Comment: Name Collection Type:: Clean-Voided Midstream Performed By: #### U A, UHCG #### [address] Leukocyte esterase Test strip Ql (U) Negative Normal Negative [facility] Comment on above: Order Comment: Name Collection Type:: Clean-Voided Midstream Performed By: #### U A, UHCG #### [place] [address] [place] Nitrite,Urine Negative Normal Negative [facility] Comment on above: Order Comment: Name Collection Type:: Clean-Voided Midstream Performed By: #### U A, UHCG #### [place] [id number] [place] Occult Blood,Urine Negative Normal Negative [facility] Comment on above: Order Comment: Name Collection Type:: Clean-Voided Midstream Performed By: #### U A, UHCG #### [place] [address] [place] Protein,Urine Negative Normal Negative [facility] Comment on above: Order Comment: Name Collection Type:: Clean-Voided Midstream Performed By: #### U A, UHCG #### [place] [address] [place] Specificy [place],Urine 1.007 Normal 1.001-1.030 [facility] Comment on above: Order Comment: Name Collection Type:: Clean-Voided Midstream Performed By: #### U A, CG #### [facility] [address] [id number] [facility] Urobilinogen,Urine Normal Normal Normal [facility] Comment on above: Order Comment: Name Collection Type:: Clean-Voided Midstream Performed By: #### U A, CG #### [facility] [address] [id number] [facility] Urine clarity by refractomet ry automatedOrdered By: Elier Jackson on 02-06-2023 Clarity Refractometry automated (U) Clear Clear [facility] Urine glucose measurement by automated test strip (mass/volume)Ordered By: Elier Jackson on 02-06-2023 Glucose Auto test strip (U) [Mass/Vol] Normal mg/dL Normal [facility] Urine hemoglobin detection b y automated test stripOrdered By: Elier Jackson on 02-06-2023 Hemoglobin Auto test strip Ql (U) Negative Negative [facility] Urine leukocyte esterase det ection by automated test stripOrdered By: Elier Jackson on 02-06-2023 Leukocyte esterase Auto test strip Ql (U) Negative Negative [facility] Urine pH measurement by auto mated test stripOrdered By: Elier Jackson on 02-06-2023 pH (U) 7.0 [pH] Normal 5.0-9.0 [facility] Comment on above: Order Comment: Name Collection Type:: Clean-Voided Midstream Performed By: #### U A, [facility] #### [place] [id number] [facility] Urobilinogen Auto test strip (U) [Mass/Vol]Ordered By: Elier Jackosn on 02-06-2023 Urobilinogen (U) [Mass/Vol] Normal mg/dL Normal [facility] Alanine aminotransferase [En zymatic activity/volume] in Serum or PlasmaOrdered By: Elier Jackson on 02-05-2023 ALT [Catalytic activity/Vol] 13 U/L Normal 7-52 [facility] Comment on above: Performed By: #### H CGQNT #### [address] Albumin [Mass/volume] in Ser um or Plasma by Bromocresol green (BCG) dye binding methoOrdered By: Elier Jackson on 02-05-2023 Albumin BCG dye [Mass/Vol] 4.2 g/dL 3.5-5.7 [facility] Alkaline phosphatase [Enzyma tic activity/volume] in Serum or PlasmaOrdered By: Elier Jackson on 02-05-2023 ALP [Catalytic activity/Vol] 52 U/L Normal 34-104 [facility] Comment on above: Performed By: #### H CGQNT #### [address] Aspartate aminotransferase [ Enzymatic activity/volume] in Serum or PlasmaOrdered By: Elier Jackson on 02-05-2023 AST [Catalytic activity/Vol] 12 U/L Low 13-39 [facility] Comment on above: Performed By: #### H CGQNT #### [address] Automated basophil %Ordered By: Elier Jackson on 02-05-2023 Basophils/100 WBC (Bld) 1.4 % Normal . [facility] Comment on above: Performed By: #### H EPATIC, LIPASE, BMP, CBC #### [address] Automated basophil countOrde red By: Elier Jackson on 02-05-2023 Basophils (Bld) [#/Vol] 0.1 10*3/uL Normal 0.0-0.2 [facility] Comment on above: Result Comment: PERF ORMED BY: [place] [address] PATHOLOGIST [employer]AD [employer] DEVELOPER FARNAZ ZULETA M.D. Performed By: #### H EPATIC, LIPASE, BMP, CBC #### [address] Automated blood monocyte cou ntOrdered By: Elier Jackson on 02-05-2023 Monocytes (Bld) [#/Vol] 0.7 10*3/uL Normal 0.0-0.8 [facility] Comment on above: Performed By: #### H EPATIC, LIPASE, BMP, CBC #### [address] Automated eosinophil %Ordere d By: Elier Jackson on 02-05-2023 Eosinophils/100 WBC (Bld) 1.5 % Normal . [facility] Comment on above: Performed By: #### H EPATIC, LIPASE, BMP, CBC #### [address] Automated eosinophil countOr dered By: Elier Jackson on 02-05-2023 Eosinophils (Bld) [#/Vol] 0.1 10*3/uL Normal 0.0-0.45 [facility] Comment on above: Performed By: #### H EPATIC, LIPASE, BMP, CBC #### [address] Automated monocyte %Ordered By: Elier Jackson on 02-05-2023 Monocytes/100 WBC (Bld) 8.4 % Normal . [facility] Comment on above: Performed By: #### H EPATIC, LIPASE, BMP, CBC #### [address] Automated neutrophil %Ordere d By: Elier Jackson on 02-05-2023 Neutrophils/100 WBC (Bld) 44.4 % Normal . [facility] Comment on above: Performed By: #### H EPATIC, LIPASE, BMP, CBC #### [address] Basic Metabolic Panelon 01-12 Creatinine Clr Calc Pharmacy 115.62 Normal [facility] Comment on above: Performed By: #### H CGQNT #### [address] GFR/1.73 sq M.predicted MDRD (S/P/Bld) [Vol rate/Area] mL/min/{1.73_m2} Normal [facility] Comment on above: Performed By: #### H CGQNT #### [facility] [address] Bilirubin.direct [Mass/volum e] in Serum or PlasmaOrdered By: Elier Jackson on 02-05-2023 Bilirubin.direct [Mass/Vol] 0.10 mg/dL 0.03-0.18 [facility] Bilirubin.total [Mass/volume ] in Serum or PlasmaOrdered By: Elier Jackson on 02-05-2023 Bilirubin [Mass/Vol] 0.3 mg/dL Normal 0.3-1.0 [facility] Comment on above: Performed By: #### H CGQNT #### [address] Calcium [Mass/volume] in Ser um or PlasmaOrdered By: Elier Jackson on 02-05-2023 Calcium [Mass/Vol] 9.2 mg/dL Normal 8.6-10.3 [facility] Comment on above: Performed By: #### H CGQNT #### [facility] [address] [place] [address] Carbon dioxide, total [Moles /volume] in Serum or PlasmaOrdered By: Elier Jackson on 02-05-2023 CO2 [Moles/Vol] 21.5 mmol/L Normal 21.0-31.0 [facility] Comment on above: Performed By: #### H CGQNT #### [facility] [address] [place] [address] [place] Chloride [Moles/volume] in S binu or PlasmaOrdered By: Elier Jackson on 02-05-2023 Chloride [Moles/Vol] 107 mmol/L Normal 98-107 [facility] Comment on above: Performed By: #### H CGQNT #### [facility] [address] [place] [address] [place] Choriogonadotropin.beta subu nit [Units/volume] in Serum or PlasmaOrdered By: Elier Jackson on 02-05-2023 HCG.beta subunit Qn m[IU]/mL [facility] Comment on above: Approximate Approxim ate hCG Gestational Age Range (mIU/ml) (weeks)0.2-1 5-50 1-2 50-500 2-3 100-5,000 3-4 500-10,000 4-5 1,000-50,000 5-6 10,000-100,000 6-8 15,000-200,000 8-12 10,000-100,000 HCG.beta subunit Qn Negative [facility] Complete Blood Count Auto Di ffon 02-05-2023 Mean Corpuscular HGB Conc 31.8 g/dL Low 32.0-35.0 [facility] Comment on above: Performed By: #### H EPATIC, LIPASE, BMP, CBC #### [address] Monocytes/100 WBC (Bld) 17.33 % Normal 0.00-20.00 [facility] Comment on above: Performed By: #### H EPATIC, LIPASE, BMP, CBC #### [address] NRBC% 0.1 /100{WBC} Normal 0-0.5 [facility] Comment on above: Performed By: #### H EPATIC, LIPASE, BMP, CBC #### [address] Creatinine [Mass/volume] in Serum or PlasmaOrdered By: Elier Jackson on 02-05-2023 Creatinine [Mass/Vol] 0.71 mg/dL Normal 0.60-1.20 [place] Comment on above: Performed By: #### H CGQNT #### [address] Erythrocyte distribution wid th [Ratio] by Automated countOrdered By: Elier Jackson on 02-05-2023 Erythrocyte distribution width (RBC) [Ratio] 15.9 % High 11.9-15.3 [facility] Comment on above: Performed By: #### H EPATIC, LIPASE, BMP, CBC #### [place] [address] [place] Erythrocytes [#/volume] in B lood by Automated countOrdered By: Elier Manuel on 02-05-2023 RBC (Bld) [#/Vol] 4.78 10*6/uL Normal 3.60-5.00 [facility] Comment on above: Performed By: #### H EPATIC, LIPASE, BMP, CBC #### [facility] [address] Glucose [Mass/volume] in Ser um or PlasmaOrdered By: Elier Jackson on 02-05-2023 Glucose [Mass/Vol] 99 mg/dL Normal 70-100 [facility] Comment on above: ADA recommended refe rence rangeRandom Glucose Reference Range is dependent on time and content of last meal. Glucose of more than 200 mg/dL in a nonstressed, ambulatory subject supports the diagnosis of Diabetes Mellitus. Result Comment: [place] om Glucose Reference Range is dependent on time and content of last meal. Glucose of more than 200 mg/dL in a nonstressed, ambulatory subject supports the diagnosis of Diabetes Mellitus. ADA recommended reference range Performed By: #### H CGQNT #### [address] HCG,Qualitative Serumon 01-12 HCG,Qualitative Serum Negative Normal [facility] Comment on above: Result Comment: PERF ORMED BY: [address] [place] [address] PATHOLOGIST [employer]AD PHP DEVELOPER FARNAZ ZULETA M.D. Performed By: #### U HCG, ADDONUAPLUS #### [address] HCG,Quantitativeon 3 HCG,Quantitative < 0.60 Normal [facility] Comment on above: Result Comment: Appr oximate Approximate hCG Gestational Age Range (mIU/ml) (weeks) 0.2-1 5-50 1-2 50-500 2-3 100-5,000 3-4 500-10,000 4-5 1,000-50,000 5-6 10,000-100,000 6-8 15,000-200,000 8-12 10,000-100,000 PERFORMED BY: [place] [address] PATHOLOGIST LEAD PHP DEVELOPER FARNAZ ZULETA M.D. Performed By: #### H CGQNT #### [address] Hematocrit [Volume Fraction] of Blood by Automated countOrdered By: Elier Jackson on 02-05-2023 Hematocrit (Bld) [Volume fraction] 37.3 % Normal 34.0-46.4 [facility] Comment on above: Performed By: #### H EPATIC, LIPASE, BMP, CBC #### [address] Hemoglobin [Mass/volume] in BloodOrdered By: Elier Jackson on 02-05-2023 Hemoglobin (Bld) [Mass/Vol] 11.8 g/dL Normal 11.8-15.4 [facility] Comment on above: Performed By: #### H EPATIC, LIPASE, BMP, CBC #### [address] Hepatic Panelon 02-05-2023 Albumin [Mass/Vol] 4.2 g/dL Normal 3.5-5.7 [facility] Comment on above: Performed By: #### H CGQNT #### [address] Bilirubin,Indirect 0.2 mg/dL Normal [facility] Comment on above: Performed By: #### H CGQNT #### [address] Bilirubin.indirect [Mass/Vol] 0.10 mg/dL Normal 0.03-0.18 [facility] Comment on above: Performed By: #### H CGQNT #### [address] Leukocytes [#/volume] correc flo for nucleated erythrocytes in Blood by Automated counOrdered By: Elier Jackson on 02-05-2023 WBC corrected for nucl RBC Auto (Bld) [#/Vol] 8.1 10*3/uL 3.8-11.6 [facility] Leukocytes [#/volume] in Blo od by Automated countOrdered By: Elier Jackson on 02-05-2023 WBC (Bld) [#/Vol] 8.1 10*3/uL Normal 3.8-11.6 [facility] Comment on above: Performed By: #### H EPATIC, LIPASE, BMP, CBC #### [address] Lipase [Enzymatic activity/v olume] in Serum or PlasmaOrdered By: Elier Jackson on 02-05-2023 Lipase [Catalytic activity/Vol] 40.0 U/L Normal 11.0-82.0 [facility] Comment on above: Result Comment: PERF ORMED BY: [place] [address] PATHOLOGIST LEAD PHP DEVELOPER FARNAZ ZULETA M.D. Performed By: #### H CGQNT #### [address] Lymphocytes [#/volume] in Bl ood by Automated countOrdered By: Elier Jackson on 02-05-2023 Lymphocytes (Bld) [#/Vol] 3.6 10*3/uL Normal 1.00-4.8 [facility] Comment on above: Performed By: #### H EPATIC, LIPASE, BMP, CBC #### [address] Lymphocytes/100 leukocytes i n Blood by Automated countOrdered By: Elier Jackson on 02-05-2023 Lymphocytes/100 WBC (Bld) 44.3 % Normal . [facility] Comment on above: Performed By: #### H EPATIC, LIPASE, BMP, CBC #### [place] [address] [place] MCH [Entitic mass] by Automa flo countOrdered By: Elier Jackson on 02-05-2023 MCH (RBC) [Entitic mass] 24.8 pg Normal 24.7-34.3 [facility] Comment on above: Performed By: #### H EPATIC, LIPASE, BMP, CBC #### [facility] [address] MCHC Auto (RBC) [Mass/Vol]Or dered By: Elier Jackson on 02-05-2023 MCHC (RBC) [Mass/Vol] 31.8 g/dL 32.0-35.0 [place] MCV [Entitic volume] by Auto mated countOrdered By: Elier Jackson on 02-05-2023 MCV (RBC) [Entitic vol] 78.1 fL Low 80-100 [facility] Comment on above: Performed By: #### H EPATIC, LIPASE, BMP, CBC #### [facility] [address] [place] [address] Monocyte distribution width [Entitic volume] in Blood by AutomatedOrdered By: Elier Jackson on 02-05-2023 Monocyte distribution width Auto (Bld) [Entitic vol] 17.33 % 0.00-20.00 [facility] Neutrophils [#/volume] in Bl ood by Automated countOrdered By: Elier Jackson on 02-05-2023 Neutrophils (Bld) [#/Vol] 3.6 10*3/uL Normal 1.8-7.7 [facility] Comment on above: Performed By: #### H EPATIC, LIPASE, BMP, CBC #### [facility] [address] [place] [address] No Panel InformationOrdered By: Elier Jackson on 02-05-2023 Estimated GFR (CKD-EPI) > 60.0 mL/Min [facility] Creatinine Clearance (Chem 115.62 [facility] Nucleated erythrocytes [Pres ence] in Blood by Automated countOrdered By: Elier Jackson on 02-05-2023 Nucleated RBC Auto Ql (Bld) 0.1 /100{WBC} 0-0.5 [facility] Platelet mean volume [Entiti c volume] in Blood by Automated countOrdered By: Elier Jackson on 02-05-2023 Platelet mean volume (Bld) [Entitic vol] 8.0 fL Normal 6.3-10.7 [facility] Comment on above: Performed By: #### H EPATIC, LIPASE, BMP, CBC #### [address] Platelets [#/volume] in Bloo d by Automated countOrdered By: Elier Jackson on 02-05-2023 Platelets (Bld) [#/Vol] 398 10*3/uL Normal 150-450 [facility] Comment on above: Performed By: #### H EPATIC, LIPASE, BMP, CBC #### [address] Potassium [Moles/volume] in Serum or PlasmaOrdered By: Elier Jackson on 02-05-2023 Potassium [Moles/Vol] 3.4 mmol/L Low 3.5-5.1 [place] Comment on above: Performed By: #### H CGQNT #### [address] Protein [Mass/volume] in Ser um or PlasmaOrdered By: Elier Jackson on 02-05-2023 Protein [Mass/Vol] 7.2 g/dL Normal 6.4-8.9 [facility] Comment on above: Performed By: #### H CGQNT #### [address] Serum globulin measurement b y calculation (mass/volume)Ordered By: Elier Jackson on 02-05-2023 Globulin (S) [Mass/Vol] 3.0 g/dL Normal [facility] Comment on above: Performed By: #### H CGQNT #### [address] Serum or plasma albumin/glob ulin mass ratioOrdered By: Elier Jackson on 02-05-2023 Albumin/Globulin [Mass ratio] 1.4 {ratio} Normal [facility] Comment on above: Performed By: #### H CGQNT #### [address] Serum or plasma anion gap de terminationOrdered By: Elier Jackson on 02-05-2023 Anion gap [Moles/Vol] 11.9 mmol/L Normal 6.0-15.0 [facility] Comment on above: Performed By: #### H CGQNT #### [facility] [address] Serum or plasma non-glucuron idated bilirubin measurement (mass/volume)Ordered By: Elier Jackson on 02-05-2023 Bilirubin.indirect [Mass/Vol] 0.2 mg/dL [facility] Sodium [Moles/volume] in Ser um or PlasmaOrdered By: Elier Jackson on 02-05-2023 Sodium [Moles/Vol] 137 mmol/L Normal 136-145 [facility] Comment on above: Performed By: #### H CGQNT #### [facility] [address] [place] [address] Urea nitrogen [Mass/volume] in Serum or PlasmaOrdered By: Elier Jackson on 02-05-2023 Urea nitrogen [Mass/Vol] 6 mg/dL Low 7-25 [facility] Comment on above: Performed By: #### H CGQNT #### [facility] [address] [place], [place] [id number] [facility] GENITAL CULTUREon 08-01-2022 Genital Culture, Routine Final report Abnormal [facility] Comment on above: Result Comment: Spec imen stability note: A swab transport (ie., ESwab, Amies agar gel) received by the lab more than 24 hours after collection may result in reduced recovery of Neisseria gonorrhoeae (GC). (This is informational only and may not apply to this specimen.) Performed By: #### C XGENIT #### [facility] [address] [address] [address] Rod Ramirez Result 1 Comment Abnormal [facility] Comment on above: Result Comment: Beta hemolytic [...] By: #### C XGENIT #### [facility] [address] [place] [address] Dr. Rod Ramirez Result 2 Comment Normal [facility] Comment on above: Result Comment: Rout ine genital rashid. Light growth Performed By: #### C XGENIT #### [facility] [address] [place] [address] Dr. Rod Ramirez CBC AUTO DIFFon 07-28-2022 BASO # 0.0 103/ul Normal 0.0-0.1 [facility] Comment on above: Performed By: #### C BC #### [facility] [address] [place] [address] Dr. Rod Ramirez Basophils/100 WBC (Bld) 0.4 % Normal 0.2-2.0 [facility] Comment on above: Performed By: #### C BC #### [facility] [address] [place] [address] Dr. Rod Ramirez EO # 0.1 103/ul Normal 0.0-0.7 [facility] Comment on above: Performed By: #### C BC #### [facility] [address] [place] [address] Dr. Rod Ramirez Eosinophils/100 WBC (Bld) 1.5 % Normal 0.9-7.0 [facility] Comment on above: Performed By: #### C BC #### [facility] [address] [place] [address] Dr. Rod Ramirez Erythrocyte distribution width (RBC) [Ratio] 12.9 % Normal 11.0-15.0 [facility] Comment on above: Performed By: #### C BC #### [facility] [address] [place] [address] Dr. Rod Ramirez Hematocrit (Bld) [Volume fraction] 40.9 % Normal 36.0-48.0 [facility] Comment on above: Performed By: #### C BC #### [facility] [address] [place] [address] Dr. Rod Ramirez Hemoglobin (Bld) [Mass/Vol] 13.7 g/dL Normal 12.0-16.0 [facility] Comment on above: Performed By: #### C BC #### [facility] [address] [place] [address] Dr. Rod Ramirez IG # 0.02 10e3/ul Normal 0.00-0.03 [facility] Comment on above: Performed By: #### C BC #### [facility] [address] [place] [address] Dr. Rod Ramirez IG % 0.3 % Normal 0.0-0.5 [facility] Comment on above: Performed By: #### C BC #### [facility] [address] [place] [address] Dr. Rod Ramirez LYMPH # 1.6 103/ul Normal 1.2-3.8 [facility] Comment on above: Performed By: #### C BC #### [facility] [address] [place] [address] Dr. Rod Ramirez Lymphocytes/100 WBC (Bld) 23.6 % Normal 20.5-60.0 [facility] Comment on above: Performed By: #### C BC #### [facility] [address] [place] [address] Dr. Rod Ramirez MANUAL DIFF REQ NO Normal [facility] Comment on above: Performed By: #### C BC #### [facility] [address] [place] [address] Dr. Rod Ramirez MCH (RBC) [Entitic mass] 27.7 pg Normal 26.7-34.0 [facility] Comment on above: Performed By: #### C BC #### [facility] [address] [place] [address] Dr. Rod Ramirez MCHC (RBC) [Mass/Vol] 33.5 g/dL Normal 29.9-35.2 [facility] Comment on above: Performed By: #### C BC #### [facility] [address] [place] [address] Dr. Rod Ramirez MCV (RBC) [Entitic vol] 82.6 fL Normal 81.0-99.0 [facility] Comment on above: Performed By: #### C BC #### [facility] [address] [place] [address] Dr. Rod Ramirez MONO # 0.4 103/ul Normal 0.3-0.8 [facility] Comment on above: Performed By: #### C BC #### [facility] [address] [place] [address] Dr. Rod Ramirez Monocytes/100 WBC (Bld) 6.4 % Normal 1.7-12.0 [facility] Comment on above: Performed By: #### C BC #### [facility] [address] [place] [address] Dr. Rod Ramirez NEUT # 4.6 103/ul Normal 1.4-6.5 [facility] Comment on above: Performed By: #### C BC #### [facility] [address] [place] [address] Dr. Rod Ramirez Neutrophils/100 WBC (Bld) 67.8 % Normal 43.0-75.0 [facility] Comment on above: Performed By: #### C BC #### [facility] [address] [place] [address] Dr. Rod Ramirez Platelet mean volume (Bld) [Entitic vol] 9.4 fL Critically low 9.5-13.5 [facility] Comment on above: Performed By: #### C BC #### [facility] [address] [place] [address] Dr. Rod Ramirez PLT 439 103/ul Normal 150-450 [facility] Comment on above: Performed By: #### C BC #### [facility] [address] [place] [address] Dr. Rod Ramirez RBC 4.95 106/ul Normal 4.20-5.40 [facility] Comment on above: Performed By: #### C BC #### [facility] [address] [place] [address] Dr. Rod Ramirez WBC 6.7 103/ul Normal 4.0-11.0 The [facility] Comment on above: Performed By: #### C BC #### [facility] Laboratory [address] [place] [address] Dr. Rod Ramirez PREG HCG QUALon 02-15-2023 , QUAL Negative Normal NEGATIVE [facility] Comment on above: Performed By: #### P REG #### [facility] Laboratory [address] [place] [address] Dr. Rod Ramirez PROF CHEM 8 (BAS METB)on Anion gap [Moles/Vol] 15.5 mmol/L Normal [facility] Comment on above: Performed By: #### B MP #### [facility] Laboratory [address] [address] [address] Rod Ramirez Calcium [Mass/Vol] 9.0 mg/dL Normal 8.5-10.1 [facility] Comment on above: Performed By: #### B MP #### [facility] Laboratory [address] [place] [address] Dr. Rod Ramirez Chloride [Moles/Vol] 103 mmol/L Normal 98-107 [facility] Comment on above: Performed By: #### B MP #### [facility] Laboratory [address] [place] [address] Dr. Rod Ramirez CO2 [Moles/Vol] 23.9 mmol/L Normal 21.0-32.0 [facility] Comment on above: Performed By: #### B MP #### [facility] Laboratory [address] [place] [address] Dr. Rod Ramirez Creatinine [Mass/Vol] 0.79 mg/dL Normal 0.55-1.02 [facility] Comment on above: Performed By: #### B MP #### [facility] Laboratory [address] [place] [address] Dr. Rod Ramirez EGFR-AF PANAMANIAN >60 Normal >=60 [facility] Comment on above: Performed By: #### B MP #### [facility] Laboratory [address] [place] [address] Dr. Rod Ramirez EGFR-NON AF PANAMANIAN >60 Normal >=60 [facility] Comment on above: Performed By: #### B MP #### [facility] Laboratory [address] [place] [address] Dr. Rod Ramirez Glucose [Mass/Vol] 108 mg/dL Critically high 74-106 [facility] Comment on above: Performed By: #### B MP #### [facility] Laboratory [address] [address] [address] Rod Ramirez Potassium [Moles/Vol] 3.4 mmol/L Critically low 3.5-5.1 [facility] Comment on above: Performed By: #### B MP #### [facility] Laboratory [address] [address] [address] Rod Ramirez Sodium [Moles/Vol] 139 mmol/L Normal 136-145 [facility] Comment on above: Performed By: #### B MP #### [facility] Laboratory [address] [address] [address] Rod Ramirez Urea nitrogen [Mass/Vol] 7.0 mg/dL Normal 7.0-18.0 [facility] Comment on above: Performed By: #### B MP #### [facility] Laboratory [address] [address] [address] Rod Ramirez Urea nitrogen/Creatinine [Mass ratio] 8.9 mg/mg Normal [facility] Comment on above: Performed By: #### B MP #### [facility] Laboratory [address] [address] [address] Rod Ramirez US PELVIS TRANSVAGon 023 [...] Date: 2022-07-28 07:46 Normal The [facility] WET PREPon 07-28-2022 CLUE CELLS NONE SEEN Normal NONE SEEN The [facility] Comment on above: Performed By: #### W P #### [facility] Laboratory [address] [address] [address] Rod Ramirez FUNGAL ELEMENTS NONE SEEN Normal NONE SEEN [facility] Comment on above: Performed By: #### W P #### [facility] Laboratory [address] [address] [address] Rod Ramirez RBC -WET PREP RARE Abnormal NONE SEEN [facility] Comment on above: Performed By: #### W P #### [facility] Laboratory [address] [address] [address] Rod Ramirez TRICHOMONAS NONE SEEN Normal NONE SEEN The [facility] Comment on above: Performed By: #### W P #### [facility] Laboratory [address] [address] [address] Rod Ramirez WBC- WET PREP RARE Abnormal NONE SEEN [facility] Comment on above: Performed By: #### W P #### [facility] Laboratory [address] [address] [address] Rod Ramirez WET PREP BACTERIA NONE SEEN Normal NONE SEEN [facility] Comment on above: Performed By: #### W P #### [facility] Laboratory [address] [place] [address] Dr. Rod Morales 04-30-2022 PIOTRN Telephone (HEMASA) LIVIA NOYOLA ([id number]) 1985 F Date Time Provider Department 04/30/22 GIL NI During your visit today, we recorded the following information about you: Tabby Steele Ma 04/30/2022 2:25 PM Signed CMP if needed. Tabby Carusosamra Morales Allergies As of Date: 04/30/2022 Noted Allergy Reaction MORPHINE 06/20/2018 14 - Other: See Comments Comments: Spasms Date Reviewed: 04/09/2022 Reviewed by: Gloria Rivera RN - Fully Assessed Reason for Visit: Lab Orders [1688] Primary Visit Diagnosis:Iron deficiency anemia due to chronic blood loss [D50.0] Order(s):COMP METABOLIC PANEL [SQCMP] Order #: [id number] FUTURE Prescriptions as of 05/03/2022 - ALPRAZolam [...] Status:Closed by GIL NI on 05/03/22 Normal [facility] Anisocytosis LM Ql (Bld)Orde red By: Yevgeniy Cabrera on 04-28-2022 Anisocytosis Ql (Bld) Marked [place] Automated erythrocytes count in urine sediment (number/area)Ordered By: Yevgeniy Cabrera on 04-28-2022 RBC Auto (Urine sed) [#/Area] None seen [HPF] 0-4 [facility] Automated leukocytes count i n urine sediment (number/area)Ordered By: Yevgeniy Cabrera on 04-28-2022 WBC Auto (Urine sed) [#/Area] 3-4 [HPF] 0-4 [facility] Basophils Auto (Bld) [#/Vol] Ordered By: Yevgeniy Cabrera on 04-28-2022 Basophils (Bld) [#/Vol] 0.1 10*3/uL 0.0-0.2 [facility] Basophils/100 WBC Auto (Bld) Ordered By: Yevgeniy Cabrera on 04-28-2022 Basophils/100 WBC (Bld) 1.0 % . F [facility] Bilirubin Test strip Ql (U)O rdered By: Yevgeniy Cabrera on 04-28-2022 Bilirubin Ql (U) Negative Negative [facility] Body fluid albumin measureme nt (mass/volume)Ordered By: Yevgeniy Cabrera on 04-28-2022 Albumin (Body fld) [Mass/Vol] 3.8 g/dL 3.2-5.5 [facility] Color Auto (U)Ordered By: Marcus Cabrera on 04-28-2022 Color (U) Yellow Yellow [facility] Creatinine and Glomerular fi ltration rate.predicted panel (S/P/Bld)Ordered By: Yevgeniy Cabrera on 04-28-2022 Creatinine [Mass/Vol] 0.62 mg/dL 0.44-1.03 [place] Eosinophils Auto (Bld) [#/Vo l]Ordered By: Yevgeniy Cabrera on 04-28-2022 Eosinophils (Bld) [#/Vol] 0.1 10*3/uL 0.0-0.45 [facility] Eosinophils/100 WBC Auto (Bl d)Ordered By: Yevgeniy Cabrera on 04-28-2022 Eosinophils/100 WBC (Bld) 1.0 % . [facility] Erythrocyte distribution wid th Auto (RBC) [Ratio]Ordered By: Yevgeniy Cabrera on 04-28-2022 Erythrocyte distribution width (RBC) [Ratio] 27.1 % 11.9-15.3 [facility] Estimated glomerular filtrat ion rate (GFR) non- AmericanOrdered By: Yevgeniy Cabrera on 04-28-2022 GFR/1.73 sq M.predicted among non-blacks MDRD (S/P/Bld) [Vol rate/Area] > 60 mL/Min [facility] Globulin Calc (S) [Mass/Vol] Ordered By: Yevgeniy Cabrera on 04-28-2022 Globulin (S) [Mass/Vol] 3.1 g/dL F [facility] HCG ( test) IA.rapi d Ql (U)Ordered By: Yevgeniy Cabrera on 04-28-2022 HCG ( test) Ql (U) Negative [facility] Hematocrit Auto (Bld) [Volum e fraction]Ordered By: Yevgeniy Cabrera on 04-28-2022 Hematocrit (Bld) [Volume fraction] 39.4 % 34.0-46.4 [facility] Hemoglobin [Mass/volume] in BloodOrdered By: Yevgeniy Cabrera on 04-28-2022 Hemoglobin (Bld) [Mass/Vol] 12.3 g/dL 11.8-15.4 [facility] Hypochromia LM Ql (Bld)Order ed By: Yevgeniy Cabrera on 04-28-2022 Hypochromia Ql (Bld) Slight [facility] Ketones Auto test strip (U) [Mass/Vol]Ordered By: Yevgeniy Cabrera on 04-28-2022 Ketones (U) [Mass/Vol] Negative Negative Fi [facility] - Hematology and Cell countsOrdered By: Yevgeniy Cabrera on 04-28-2022 Nucleated RBC/100 WBC (Bld) [Ratio] 0.0 % 0-0.5 [facility] Laboratory - UrinalysisOrder ed By: Yevgeniy Cabrera on 04-28-2022 Hyaline casts LM Ql (Urine sed) None seen [LPF] 0-8 [facility] Leukocytes [#/volume] in Blo od by Automated countOrdered By: Yevgeniy Cabrera on 04-28-2022 WBC (Bld) [#/Vol] 7.9 10*3/uL 4.5-11.0 [facility] Lymphocytes Auto (Bld) [#/Vo l]Ordered By: Yevgeniy Cabrera on 04-28-2022 Lymphocytes (Bld) [#/Vol] 2.3 10*3/uL 1.00-4.8 [facility] Lymphocytes/100 WBC Auto (Bl d)Ordered By: Yevgeniy Cabrera on 04-28-2022 Lymphocytes/100 WBC (Bld) 28.9 % . [facility] MCH Auto (RBC) [Entitic mass ]Ordered By: Yevgeniy Cabrera on 04-28-2022 MCH (RBC) [Entitic mass] 23.3 pg 24.7-34.3 [facility] MCHC Auto (RBC) [Mass/Vol]Or dered By: Yevgeniy Cabrera on 04-28-2022 MCHC (RBC) [Mass/Vol] 31.3 g/dL 32.0-35.0 [place] MCV Auto (RBC) [Entitic vol] Ordered By: Yevgeniy Cabrera on 04-28-2022 MCV (RBC) [Entitic vol] 74.5 fL 80-100 F [facility] Monocytes Auto (Bld) [#/Vol] Ordered By: Yevgeniy Cabrera on 04-28-2022 Monocytes (Bld) [#/Vol] 0.4 10*3/uL 0.0-0.8 [facility] Monocytes/100 WBC Auto (Bld) Ordered By: Yevgeniy Cabrera on 04-28-2022 Monocytes/100 WBC (Bld) 4.5 % . F [facility] Neutrophils Auto (Bld) [#/Vo l]Ordered By: Yevgeniy Cabrera on 04-28-2022 Neutrophils (Bld) [#/Vol] 5.1 10*3/uL 1.8-7.7 [facility] Neutrophils/100 WBC Auto (Bl d)Ordered By: Yevgeniy Cabrera on 04-28-2022 Neutrophils/100 WBC (Bld) 64.6 % . [facility] Nitrite Test strip Ql (U)Ord ered By: Yevgeniy Cabrera on 04-28-2022 Nitrite Ql (U) Negative Negative [facility] No Panel InformationOrdered By: Yevgeniy Cabrera on 04-28-2022 Estimated GFR () > 60 mL/Min [facility] Comment on above: GFR estimated refere nce range: According to KDOQI guidelines, <60 ml/min/1.73m2 is sufficient to diagnose a patient with chronic kidney disease. Pharmacy Creatinine Clearance (Chem 132.36 [facility] Slides for Pathologist Review Ordered path review [facility] Ovalocyte detectionOrdered B y: Yevgeniy Cabrera on 04-28-2022 Ovalocytes LM Ql (Bld) Moderate Fi [facility]Pending [facility] to [facility] Platelet adequacy [Presence] in Blood by Light microscopyOrdered By: Yevgeniy Cabrera on 04-28-2022 Platelets LM Ql (Bld) Normal Normal [place] Platelet mean volume Auto (B ld) [Entitic vol]Ordered By: Yevgeniy Cabrera on 04-28-2022 Platelet mean volume (Bld) [Entitic vol] 7.4 fL 6.3-10.7 [facility] Platelet morphology finding [Identifier] in BloodOrdered By: Yevgeniy Cabrera on 04-28-2022 Platelet morphology finding Nom (Bld) Normal Normal [facility] Platelets Auto (Bld) [#/Vol] Ordered By: Yevgeniy Cabrera on 04-28-2022 Platelets (Bld) [#/Vol] 329 10*3/uL 150-450 [facility] Poikilocytosis [Presence] in Blood by Light microscopyOrdered By: Yevgeniy Cabrera on 04-28-2022 Poikilocytosis LM Ql (Bld) Moderate [facility] Polychromasia [Presence] in Blood by Light microscopyOrdered By: Yevgeniy Cabrera on 04-28-2022 Polychromasia LM Ql (Bld) Slight [facility] Protein Auto test strip (U) [Mass/Vol]Ordered By: Yevgeniy Cabrera on 04-28-2022 Protein (U) [Mass/Vol] Negative Negative [facility] Protein [Mass/volume] in Ser um or PlasmaOrdered By: Yevgeniy Cabrera on 04-28-2022 Protein [Mass/Vol] 6.9 g/dL 6.1-7.9 [facility] RBC Auto (Bld) [#/Vol]Ordere d By: Yevgeniy Cabrera on 04-28-2022 RBC (Bld) [#/Vol] 5.29 10*6/uL 3.60-5.00 [facility] RBC morphologyOrdered By: Marcus Cabrera on 04-28-2022 RBC morphology finding Nom (Bld) N/A [facility] Serum or plasma alanine syed otransferase measurement without P-5'-P (enzymatic activiOrdered By: Yevgeniy Cabrera on 04-28-2022 ALT No additional P-5'-P [Catalytic activity/Vol] 43 U/L 10-60 [facility] Serum or plasma albumin/glob ulin mass ratioOrdered By: Yevgeniy Cabrera on 04-28-2022 Albumin/Globulin [Mass ratio] 1.2 {ratio} [facility] Serum or plasma alkaline zeeshan sphatase measurement (enzymatic activity/volume)Ordered By: Yvegeniy Cabrera on 04-28-2022 ALP [Catalytic activity/Vol] 65 U/L 32-92 [facility] Serum or plasma anion gap de terminationOrdered By: Yevgeniy Cabrera on 04-28-2022 Anion gap [Moles/Vol] 14.6 mmol/L 6.0-15.0 [facility] Serum or plasma aspartate am inotransferase measurement (enzymatic activity/volume)Ordered By: Yevgeniy Cabrera on 04-28-2022 AST [Catalytic activity/Vol] 26 U/L 10-42 [facility] Serum or plasma calcium donaldo urement (mass/volume)Ordered By: Yevgeniy Cabrera on 04-28-2022 Calcium [Mass/Vol] 9.3 mg/dL 8.2-10.2 [facility] Serum or plasma chloride claudia surement (moles/volume)Ordered By: Yevgeniy Cabrera on 04-28-2022 Chloride [Moles/Vol] 105 mmol/L 95-114 [facility] Serum or plasma glucose donaldo urement (mass/volume)Ordered By: Yevgeniy Cabrera on 04-28-2022 Glucose [Mass/Vol] 112 mg/dL 70-100 [facility] Comment on above: ADA recommended refe rence rangeRandom Glucose Reference Range is dependent on time and content of last meal. Glucose of more than 200 mg/dL in a nonstressed, ambulatory subject supports the diagnosis of Diabetes Mellitus. Serum or plasma potassium me asurement (moles/volume)Ordered By: Yevgeniy Cabrera on 04-28-2022 Potassium [Moles/Vol] 3.7 mmol/L 3.5-5.1 [place] Serum or plasma sodium measu rement (moles/volume)Ordered By: Yevgeniy Cabrera on 04-28-2022 Sodium [Moles/Vol] 137 mmol/L 136-146 [facility] Serum or plasma total biliru bin measurement (mass/volume)Ordered By: Yevgeniy Cabrera on 04-28-2022 Bilirubin [Mass/Vol] 0.5 mg/dL 0.3-1.2 [facility] Serum or plasma total carbon dioxide measurement (moles/volume)Ordered By: Yevgeniy Cabrera on 04-28-2022 CO2 [Moles/Vol] 21.1 mmol/L 22.0-30.0 [facility] Serum or plasma urea nitroge n measurement (mass/volume)Ordered By: Yevgeniy Cabrera on 04-28-2022 Urea nitrogen [Mass/Vol] 5 mg/dL 9-23 [facility] Specific gravity Auto test s trip (U) [Rel density]Ordered By: Yevgeniy Cabrera on 04-28-2022 Specific gravity (U) [Rel density] 1.005 1.001-1.030 [facility] Squamous epithelial cells de tection in urine sediment by light microscopyOrdered By: Yevgeniy Cabrera on 04-28-2022 Epithelial cells.squamous LM Ql (Urine sed) 0-1 [HPF] 0-2 [facility] Teardrop cell detectionOrder ed By: Yevgeniy Cabrera on 04-28-2022 Dacrocytes LM Ql (Bld) Slight Fi [facility]Pending sale to [facility] Urine bacteria detection by automated methodOrdered By: Yevgeniy Cabrera on 04-28-2022 Bacteria Auto Ql (U) None seen None Seen [facility] Urine clarity by refractomet ry automatedOrdered By: Yevgeniy Cabrera on 04-28-2022 Clarity Refractometry automated (U) Cloudy Clear [facility] Urine glucose measurement by automated test strip (mass/volume)Ordered By: Yevgeniy Cabrera on 04-28-2022 Glucose Auto test strip (U) [Mass/Vol] Normal mg/dL Normal [facility] Urine hemoglobin detection b y automated test stripOrdered By: Yevgeniy Cabrera on 04-28-2022 Hemoglobin Auto test strip Ql (U) Negative Negative [facility] Urine leukocyte esterase det ection by automated test stripOrdered By: Yevgeniy Cabrera on 04-28-2022 Leukocyte esterase Auto test strip Ql (U) 1+ Negative [facility] Urobilinogen Auto test strip (U) [Mass/Vol]Ordered By: Yevgeniy Cabrera on 04-28-2022 Urobilinogen (U) [Mass/Vol] Normal mg/dL Normal [facility] pH Auto test strip (U)Ordere d By: Yevgeniy Cabrera on 04-28-2022 pH (U) 6.5 [pH] 5.0-9.0 [facility] ALLIED HEALTHon 04-09-2022 ALLIED HEALTH HNO ID: [id number] Author: Stephenie Suh, 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 Service: ? [...] 2022 TIME: 2:21 PM PAGER/CONTACT #: Angela [facility] Andrew 03-19-2022 FRIDA Telephone (NCCAP) LIVIA NOYOLA ([id number]) 1985 F Date Time Provider Department 03/19/22 [...] Date Reviewed: 03/10/2022 Reviewed by: Gil Ni APRN.ELIGIBILITY MANAGER - Fully Assessed Reason for Visit: [...] Encounter Status:Closed by CORBIN MANE [facility]19/22 [facility] LIVIA NOYOLA ([id number]) 1985 F Date Time Provider Department 03/19/22 FINANCIAL [employer]IG[employer] [facility] [employer] During your visit today, we recorded the following information about you: Sparkle Short [facility] 03/19/2022 4:48 PM Signed 1st report of treatment-Non oncology regimen (Venofer) No FA available for this treatment at this time. Allergies As of Date: 03/19/2022 Noted Allergy Reaction MORPHINE 06/20/2018 14 - Other: See Comments Comments: Spasms Date Reviewed: 03/10/2022 Reviewed by: Gil Ni APRN.[facility] - Fully Assessed Reason for Visit: Benefits Investigation [3324] Prescriptions as of 03/19/2022 - ALPRAZolam (XANAX) [...] iron [K90.9] 10/27/2020 Encounter Status:Closed by [facility], SPARKLE Chicas [facility]19[facility]22 [facility]IV[facility] NOYOL[facility] ([id number]) 1985 F Date Time Provider Department 03/15/22 [...] Date Reviewed: 03/10/2022 Reviewed by: Gil Ni APRN.ELIGIBILITY MANAGER - Fully Assessed Reason for Visit: [...] Status:Closed by SHARON GALAVIZ on 03/15/22 Normal [facility] CBC W Auto Differential pane l (Bld)on 03-10-2022 Basophils (Bld) [#/Vol] 0.05 10*3/uL Normal <0.11 [facility] Comment on above: Order Comment: Speci men Type: BLOOD SPECIMEN Ordering Facility: [facility] Address: [address] [place] [address] Performed By: #### 5 7021-8 #### [facility] CLIA [id number] [address] [place] [address] Basophils/100 WBC (Bld) 0.8 % Normal C [facility] Comment on above: Order Comment: Speci men Type: BLOOD SPECIMEN Ordering Facility: [facility] Address: [address] [place] [address] Performed By: #### 5 7021-8 #### [facility] CLIA [id number] [address] [place] [address] Differential cell count method Nom (Bld) Auto Normal [facility] Comment on above: Order Comment: Speci men Type: BLOOD SPECIMEN Ordering Facility: [facility] Address: [address] [place] [address] Performed By: #### 5 7021-8 #### [facility] CLIA [id number] [address] [place] [address] Eosinophils (Bld) [#/Vol] 0.15 10*3/uL Normal <0.46 [facility] Comment on above: Order Comment: Speci men Type: BLOOD SPECIMEN Ordering Facility: [facility] Address: [address] [address] Performed By: #### 5 7021-8 #### [facility] CLIA [id number] [address] [place] [address] Eosinophils/100 WBC (Bld) 2.3 % Normal [facility] Comment on above: Order Comment: Speci men Type: BLOOD SPECIMEN Ordering Facility: [facility] Address: [address] [place] [address] Performed By: #### 5 7021-8 #### [facility] CLIA [id number] [address] [place] [address] Erythrocyte distribution width (RBC) [Ratio] 17.4 % High 11.5-15.0 [facility] Comment on above: Order Comment: Speci men Type: BLOOD SPECIMEN Ordering Facility: [facility] Address: [address] [place] [address] Performed By: #### 5 7021-8 #### [facility] CLIA [id number] [address] [place] [address] Hematocrit (Bld) [Volume fraction] 29.4 % Low 36.0-46.0 [facility] Comment on above: Order Comment: Speci men Type: BLOOD SPECIMEN Ordering Facility: [facility] Address: [address] [place] [address] Performed By: #### 5 7021-8 #### [facility] CLIA [id number] [address] [place] [address] Hemoglobin (Bld) [Mass/Vol] 8.5 g/dL Low 11.5-15.5 [facility] Comment on above: Order Comment: Speci men Type: BLOOD SPECIMEN Ordering Facility: [facility] Address: [address] [place] [address] Performed By: #### 5 7021-8 #### [facility] CLIA [id number] [address] [place] [address] IMMATURE GRAN % 0.3 % Normal [facility] Comment on above: Order Comment: Speci men Type: BLOOD SPECIMEN Ordering Facility: [facility] Address: [address] [place] [address] Performed By: #### 5 7021-8 #### [facility] CLIA [id number] [address] [place] [address] IMMATURE GRAN ABS <0.03 Normal <0.10 [facility] Comment on above: Order Comment: Speci men Type: BLOOD SPECIMEN Ordering Facility: [facility] Address: [address] [place] [address] Performed By: #### 5 7021-8 #### [facility] CLIA [id number] [address] [place] [address]80 Lymphocytes (Bld) [#/Vol] 3.62 10*3/uL Normal 1.00-4.00 [facility] Comment on above: Order Comment: Speci men Type: BLOOD SPECIMEN Ordering Facility: [facility] Address: [address] [place] [address] Performed By: #### 5 7021-8 #### [facility] CLIA [id number] [address] [place] [address] 93527 Lymphocytes/100 WBC (Bld) 54.8 % Normal [facility] Comment on above: Order Comment: Speci men Type: BLOOD SPECIMEN Ordering Facility: [facility] Address: [address] [place] [address] Performed By: #### 5 7021-8 #### [facility] CLIA [id number] [address] [place] [address] 16679 MCH (RBC) [Entitic mass] 20.3 pg Low 26.0-34.0 [facility] Comment on above: Order Comment: Speci men Type: BLOOD SPECIMEN Ordering Facility: [facility] Address: [address] [place] [address] Performed By: #### 5 7021-8 #### [facility] CLIA [id number] [address] [place] [address]282 MCHC (RBC) [Mass/Vol] 28.9 g/dL Low 30.5-36.0 [facility] Comment on above: Order Comment: Speci men Type: BLOOD SPECIMEN [facility] [facility] [place] Address: [address] [place] [address] Performed By: #### 5 7021-8 #### [facility] CLIA [id number] [address] [place] [address] 15596 MCV (RBC) [Entitic vol] 70.3 fL Low 80.0-100.0 [facility] Comment on above: Order Comment: Speci men Type: BLOOD SPECIMEN Ordering Facility: [facility] [place] Address: [address] [place] [address] Performed By: #### 5 7021-8 #### [facility] CLIA [id number] [address] [place] [address] 36195 Monocytes (Bld) [#/Vol] 0.38 10*3/uL Normal <0.87 [facility] Comment on above: Order Comment: Speci men Type: BLOOD SPECIMEN Ordering Facility: [facility] [place] Address: [address] [place] [address] Performed By: #### 5 7021-8 #### [facility] CLIA [id number] [address] [place] [address] 75473 Monocytes/100 WBC (Bld) 5.7 % Normal [facility] Comment on above: Order Comment: Speci men Type: BLOOD SPECIMEN Ordering Facility: [facility] [place] Address: [address] [place] [address] Performed By: #### 5 7021-8 #### [facility] CLIA [id number] [address] [place] [address] 82568 Neutrophils (Bld) [#/Vol] 2.39 10*3/uL Normal 1.45-7.50 [facility] Comment on above: Order Comment: Speci men Type: BLOOD SPECIMEN Ordering Facility: [facility] [place] Address: [address] [address] Performed By: #### 5 7021-8 #### [facility] CLIA [id number] [address] [place] [address] 77083 Neutrophils/100 WBC (Bld) 36.1 % Normal [facility] Comment on above: Order Comment: Speci men Type: BLOOD SPECIMEN Ordering Facility: [facility] [place] Address: [address] [place] [address] Performed By: #### 5 7021-8 #### [facility] CLIA [id number] [address] [place] [address] 49706 Nucleated RBC (Bld) [#/Vol] 10*3/uL Normal <0.01 [facility] Comment on above: Order Comment: Speci men Type: BLOOD SPECIMEN Ordering Facility: [facility] [place] Address: [address] [place] [address] Performed By: #### 5 7021-8 #### [facility] CLIA [id number] [address] [place] [address] 42976 Nucleated RBC/100 WBC (Bld) [Ratio] 0.0 /100 WBC Normal [facility] Comment on above: Order Comment: Speci men Type: BLOOD SPECIMEN Ordering Facility: [facility] [place] Address: [address] [place] [address] Performed By: #### 5 7021-8 #### [facility] CLIA [id number] [address] [place] [address] 29896 Platelet mean volume (Bld) [Entitic vol] 8.8 fL Low 9.0-12.7 [facility] Comment on above: Order Comment: Speci men Type: BLOOD SPECIMEN Ordering Facility: [facility] [place] Address: [address] [place], [place] [address] Performed By: #### 5 7021-8 #### [facility] CLIA [id number] [address] [place] [address] 60391 Platelets (Bld) [#/Vol] 419 10*3/uL High 150-400 [facility] Comment on above: Order Comment: Speci men Type: BLOOD SPECIMEN Ordering Facility: [facility] [place] Address: [address] [place] [address] Performed By: #### 5 7021-8 #### [facility] CLIA [id number] [address] [place] [address] 95359 RBC (Bld) [#/Vol] 4.18 10*6/uL Normal 3.90-5.20 [facility] Comment on above: Order Comment: Speci men Type: BLOOD SPECIMEN Ordering Facility: [facility] [place] Address: [address] [place] [address] Performed By: #### 5 7021-8 #### [facility] CLIA [id number] [address] [place] [address] 94062 WBC (Bld) [#/Vol] 6.61 10*3/uL Normal 3.70-11.00 [facility] Comment on above: Order Comment: Speci men Type: BLOOD SPECIMEN Ordering Facility: [facility] [place] Address: [address] [place] [address] Performed By: #### 5 7021-8 #### [facility] CLIA [id number] [address] [place] [address] 24900 CNOVSPon 03-10-2022 CNOVSP Visit (SP) Office ([place]) LIVIA NOYOLA ([id number]) 1985 F Date Time Provider Department 03/10/22 2:00 PM GIL NI During your visit today, we recorded the following information about you: Temperature Pulse Respiration Blood pressure 97.9 degrees 95/minute 16/minute 130/75 Weight Height 83.4 kg 1.651 m Gil Ni APRN.CNP 03/10/2022 2:25 PM Signed NAME: Livia Noyola NO.: [id number] DATE OF SERVICE: March 10, 2022 (Elements [...] 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 Recent laboratories from [facility] October 04, 2020 show [...] to chronic (more content not included)... Normal [facility] Comprehensive metabolic 2000 panelon 03-10-2022 Albumin [Mass/Vol] 4.0 g/dL Normal 3.9-4.9 [facility] Comment on above: Order Comment: Speci men Type: BLOOD SPECIMEN Ordering Facility: [facility] [place] Address: [address] [place] [address] Performed By: #### 2 4323-8 #### [facility] CLIA [id number] [address] [place] [address] 96868 ALP [Catalytic activity/Vol] 55 U/L Normal 34-123 [facility] Comment on above: Order Comment: Speci men Type: BLOOD SPECIMEN Ordering Facility: [facility] [place] Address: [address] [place] [address] Performed By: #### 2 4323-8 #### [facility] CLIA [id number] [address] [place] [address] 23842 ALT [Catalytic activity/Vol] 12 U/L Normal 7-38 [facility] Comment on above: Order Comment: Speci men Type: BLOOD SPECIMEN Ordering Facility: [facility] [place] Address: [address] [place] [address] Performed By: #### 2 4323-8 #### [facility] CLIA [id number] [address] [place] [address] 10605 Anion gap [Moles/Vol] 9 mmol/L Normal 9-18 [facility] Comment on above: Order Comment: Speci men Type: BLOOD SPECIMEN Ordering Facility: [facility] [place] Address: [address] [place] [address] Performed By: #### 2 4323-8 #### [facility] CLIA [id number] [address] [place] [address] AST [Catalytic activity/Vol] 14 U/L Normal 13-35 [facility] Comment on above: Order Comment: Speci men Type: BLOOD SPECIMEN Ordering Facility: [facility] [place] Address: [address] [place], [place] [address] Performed By: #### 2 4323-8 #### [facility] CLIA [id number] [address] [place] [address] Bilirubin [Mass/Vol] 0.3 mg/dL Normal 0.2-1.3 [facility] Comment on above: Order Comment: Speci men Type: BLOOD SPECIMEN Ordering Facility: [facility] [place] Address: [address] [place] [address] Performed By: #### 2 4323-8 #### [facility] CLIA [id number] [address] [place] [address] 60743 Calcium [Mass/Vol] 8.8 mg/dL Normal 8.5-10.2 [facility] Comment on above: Order Comment: Speci men Type: BLOOD SPECIMEN Ordering Facility: [facility] [place] Address: [address] [place] [address] Performed By: #### 2 4323-8 #### [facility] CLIA [id number] [address] [place] [address] 52010 Chloride [Moles/Vol] 105 mmol/L Normal 97-105 [facility] Comment on above: Order Comment: Speci men Type: BLOOD SPECIMEN Ordering Facility: [facility] [place] Address: [address] [place] [address] Performed By: #### 2 4323-8 #### [facility] CLIA [id number] [address] [place] [address] CO2 [Moles/Vol] 24 mmol/L Normal 22-30 [facility] Comment on above: Order Comment: Speci men Type: BLOOD SPECIMEN Ordering Facility: [facility] [place] Address: [address] [place] [address] Performed By: #### 2 4323-8 #### [facility] CLIA [id number] [facility] [address] Creatinine [Mass/Vol] 0.65 mg/dL Normal 0.58-0.96 [facility] Comment on above: Order Comment: Roselyn conway Type: BLOOD SPECIMEN Ordering Facility: [facility] [place] Address: [address] [phone] Performed By: #### 2 4323-8 #### [facility] CLIA [id number] [address] [place] [address] 48405 ESTIMATED GLOMERULAR FILTRATION RATE 118 mL/min/1.73m??? Normal >=60 [facility] Comment on above: Order Comment: Roselyn conway Type: BLOOD SPECIMEN Ordering Facility: [facility] [place] Address: [address] [place] [address] Result Comment: Shelley mated Glomerular Filtration Rate [...] 2 4323-8 #### [facility] CLIA [id number] [address] [place] [address] 07771 Glucose [Mass/Vol] 109 mg/dL High 74-99 [facility] Comment on above: Order Comment: Roselyn conway Type: BLOOD SPECIMEN Ordering Facility: [facility] [place] Address: [address] [address] Result Comment: The [place] [employer] (ADA) provides guidance for cutoff [...] Standards of Medical Care in Diabetes 2016, [place] [employer]. Diabetes Care. 2016.39(Suppl 1). Performed By: #### 2 4323-8 #### [facility] CLIA [id number] [address] [place] [address] 32871 Potassium [Moles/Vol] 3.4 mmol/L Low 3.7-5.1 [facility] Comment on above: Order Comment: Speci men Type: BLOOD SPECIMEN Ordering Facility: [facility] [place] Address: [address] [place] [address] Performed By: #### 2 4323-8 #### [facility] CLIA [id number] [address] [place] [address] 23728 Protein [Mass/Vol] 6.5 g/dL Normal 6.3-8.0 [facility] Comment on above: Order Comment: Speci men Type: BLOOD SPECIMEN Ordering Facility: [facility] [place] Address: [address] [place] [address] Performed By: #### 2 4323-8 #### [facility] CLIA [id number] [address] [place] [address] 75069 Sodium [Moles/Vol] 138 mmol/L Normal 136-144 [facility] Comment on above: Order Comment: Speci men Type: BLOOD SPECIMEN Ordering Facility: [facility] [place] Address: [address] [address] Performed By: #### 2 4323-8 #### [facility] CLIA [id number] [address] [place] [address] 32213 Urea nitrogen [Mass/Vol] 8 mg/dL Normal 7-21 [facility] Comment on above: Order Comment: Speci men Type: BLOOD SPECIMEN Ordering Facility: [facility] [place] Address: [address] [address] Performed By: #### 2 4323-8 #### [facility] CLIA [id number] [address] [place] [address] 72179 Ferritin SerPl-mCncon 2021 Ferritin [Mass/Vol] 5.4 ng/mL Low 14.7-205.1 [facility] Comment on above: Order Comment: Speci men Type: BLOOD SPECIMEN Ordering Facility: [facility] [place] Address: [address] [place], [place] [id number] Performed By: #### 5 0190-8, 9, 2283-8, 6-4 #### [facility] CLIA [id number] [address] [place] [address] [place] Folate SerPl-mCncon 03-10-20 Folate [Mass/Vol] 8.7 ng/mL Normal >4.7 [facility] Comment on above: Order Comment: Speci men Type: BLOOD SPECIMEN Ordering Facility: [facility] [place] Address: [address] [place] [address] Performed By: #### 5 0190-8, 9, 8, 2275-4 #### [facility] CLIA [id number] [address] [place] [address] [place] Iron and Iron binding capaci panelon 03-10-2022 Iron [Mass/Vol] 17 ug/dL Low 41-186 [facility] Comment on above: Order Comment: Speci men Type: BLOOD SPECIMEN Ordering Facility: [facility] [place] Address: [address] [place], [place] [address] Performed By: #### 5 0190-8, 9, 8, 6-4 #### [facility] CLIA [id number] [address] [place] [address] [place] Iron binding capacity [Mass/Vol] 422 ug/dL High 232-386 [facility] Comment on above: Order Comment: Speci men Type: BLOOD SPECIMEN Ordering Facility: [facility] [place] Address: [address] [place], [place] [address] Performed By: #### 5 0190-8, 9, 8, 2275-4 #### [facility] CLIA [id number] [address] [place] [address] [place] Iron/TIBC [Molar ratio] 4.0 % Low 15.0-57.0 C [facility] Comment on above: Order Comment: Speci men Type: BLOOD SPECIMEN Ordering Facility: [facility] [place] Address: [address] [place] [address] Performed By: #### 5 0190-8, 9, 2283-8, 2275-4 #### [facility] CLIA [id number] [address] [place] [address] [place] Vit [facility] Cobalamin (Vitamin B12) [Mass/Vol] 367 pg/mL Normal 232-1245 [facility] Comment on above: Order Comment: Speci zoraida Type: BLOOD SPECIMEN Ordering Facility: [facility] [place] Address: [address] [place] [address] Performed By: #### 5 0190-8, 9, 8, 4 #### [facility] CLIA [id number] [address] [place] [address] OF [place] CNPDeborah 02-18-2022 CNPN Telephone (HEMBRITTANY) LIVIA NOYOLA ([id number]) 1985 F Date Time Provider Department 02/18/22 [...] [D50.0] Order(s):CBC + DIFF [SQCBCDIF] Order #: [id number] FUTURE COMP METABOLIC PANEL [SQCMP] Order #: [id number] FUTURE IRON + TIBC [SQIRON] Order #: [id number] FUTURE FERRITIN BLD [SQFERR] Order #: [id number] FUTURE VITAMIN B12 BLOOD [SQB12] Order #: [id number] FUTURE FOLATE SERUM [SQSERFOL] Order #: [id number] FUTURE Prescriptions as of 02/20/2022 - ALPRAZolam [...] Status:Closed by [place] on 02/20/22 Normal [facility] Basophils Auto (Bld) [#/Vol] Ordered By: Jennifer Duran on 02-12-2022 Basophils (Bld) [#/Vol] 0.1 10*3/uL 0.0-0.2 [facility] Basophils/100 WBC Auto (Bld) Ordered By: Jennifer Duran on 02-12-2022 Basophils/100 WBC (Bld) 1.0 % . F [facility] Blood anisocytosis detection Ordered By: Jennifer Duran on 02-12-2022 Anisocytosis Ql (Bld) Moderate [place] Blood hemoglobin measurement (mass/volume)Ordered By: Jennifer Duran on 02-12-2022 Hemoglobin (Bld) [Mass/Vol] 8.5 g/dL 11.8-15.4 [facility] Blood leukocytes automated c ount (number/volume)Ordered By: Jennifer Duran on 02-12-2022 WBC (Bld) [#/Vol] 5.9 10*3/uL 4.5-11.0 [facility] Body fluid albumin measureme nt (mass/volume)Ordered By: Jennifer Duran on 02-12-2022 Albumin (Body fld) [Mass/Vol] 3.7 g/dL 3.2-5.[address] [facility] [address] biopsyOrdered By: Jennifer avila on 02-12-2022 Transferrin [Mass/Vol] 356 mg/dL 180-380 [facility] Creatinine and Glomerular fi ltration rate.predicted panel (S/P/Bld)Ordered By: Jennifer Duran on 02-12-2022 Creatinine [Mass/Vol] 0.72 mg/dL 0.44-1.03 [place] Eosinophils Auto (Bld) [#/Vo l]Ordered By: Jennifer Duran on 02-12-2022 Eosinophils (Bld) [#/Vol] 0.1 10*3/uL 0.0-0.45 [facility] Eosinophils/100 WBC Auto (Bl d)Ordered By: Jennifer Duran on 02-12-2022 Eosinophils/100 WBC (Bld) 2.2 % . [facility] Erythrocyte distribution wid th Auto (RBC) [Ratio]Ordered By: Jennifer Duran on 02-12-2022 Erythrocyte distribution width (RBC) [Ratio] 17.3 % 11.9-15.3 [facility] Estimated glomerular filtrat ion rate (GFR) non- AmericanOrdered By: Jennifer Duran on 02-12-2022 GFR/1.73 sq M.predicted among non-blacks MDRD (S/P/Bld) [Vol rate/Area] > 60 mL/Min [facility] Ferritin [Mass/volume] in Se rum or PlasmaOrdered By: Jennifer Duran on 02-12-2022 Ferritin [Mass/Vol] 5.1 ng/mL 11-306.8 [facility] Globulin Calc (S) [Mass/Vol] Ordered By: Jennifer Duran on 02-12-2022 Globulin (S) [Mass/Vol] 2.9 g/dL F [facility] Hematocrit Auto (Bld) [Volum e fraction]Ordered By: Jennifer Duran on 02-12-2022 Hematocrit (Bld) [Volume fraction] 27.9 % 34.0-46.4 [facility] Hypochromia detectionOrdered By: Jennifer Duran on 02-12-2022 Hypochromia Ql (Bld) Slight [facility] Iron [Mass/volume] in Serum or PlasmaOrdered By: Jennifer Duran on 02-12-2022 Iron [Mass/Vol] 11 ug/dL 40-150 [facility] Iron binding capacity [Mass/ volume] in Serum or PlasmaOrdered By: Jennifer Duran on 02-12-2022 Iron binding capacity [Mass/Vol] 498 ug/dL 255-450 [facility] Iron saturation [Mass Fracti on] in Serum or PlasmaOrdered By: Jennifer Duran on 02-12-2022 Iron saturation [Mass fraction] 2.0 % 20-50 [facility] Laboratory - Hematology and Cell countsOrdered By: Jennifer Duran on 02-12-2022 Nucleated RBC/100 WBC (Bld) [Ratio] 0.3 % 0-0.5 [facility] Lymphocytes Auto (Bld) [#/Vo l]Ordered By: Jennifer Duran on 02-12-2022 Lymphocytes (Bld) [#/Vol] 3.0 10*3/uL 1.00-4.8 [facility] Lymphocytes/100 WBC Auto (Bl d)Ordered By: Jennifer Duran on 02-12-2022 Lymphocytes/100 WBC (Bld) 50.8 % . [facility] MCH Auto (RBC) [Entitic mass ]Ordered By: Jennifer Duran on 02-12-2022 MCH (RBC) [Entitic mass] 20.1 pg 24.7-34.3 [facility] MCHC Auto (RBC) [Mass/Vol]Or dered By: Jennifer Duran on 02-12-2022 MCHC (RBC) [Mass/Vol] 30.4 g/dL 32.0-35.0 Fir [facility] MCV Auto (RBC) [Entitic vol] Ordered By: Jennifer Duran on 02-12-2022 MCV (RBC) [Entitic vol] 66.3 fL 80-100 F [facility] Monocytes Auto (Bld) [#/Vol] Ordered By: Jennifer Duran on 02-12-2022 Monocytes (Bld) [#/Vol] 0.3 10*3/uL 0.0-0.8 [facility] Monocytes/100 WBC Auto (Bld) Ordered By: Jennifer Duran on 02-12-2022 Monocytes/100 WBC (Bld) 5.7 % . F [facility] Neutrophils Auto (Bld) [#/Vo l]Ordered By: Jennifer Duran on 02-12-2022 Neutrophils (Bld) [#/Vol] 2.4 10*3/uL 1.8-7.7 [facility] Neutrophils/100 WBC Auto (Bl d)Ordered By: Jennifer Duran on 02-12-2022 Neutrophils/100 WBC (Bld) 40.3 % . [facility] No Panel InformationOrdered By: Jennifer Duran on 02-12-2022 Estimated GFR () > 60 mL/Min [facility] Comment on above: GFR estimated refere nce range: According to KDOQI guidelines, <60 ml/min/1.73m2 is sufficient to diagnose a patient with chronic kidney disease. Microcytosis Moderate [facility] Creatinine Clearance (Chem N/A [facility] Platelet Estimate Normal Normal [facility] Platelet Morphology Comment Normal Normal [facility] Platelet mean volume Auto (B ld) [Entitic vol]Ordered By: Jennifer Duran on 02-12-2022 Platelet mean volume (Bld) [Entitic vol] 8.1 fL 6.3-10.7 [facility] Platelets Auto (Bld) [#/Vol] Ordered By: Jennifer Duran on 02-12-2022 Platelets (Bld) [#/Vol] 459 10*3/uL 150-450 [facility] Protein [Mass/volume] in Ser um or PlasmaOrdered By: Jennifer Duran on 02-12-2022 Protein [Mass/Vol] 6.6 g/dL 6.1-7.9 [facility] RBC Auto (Bld) [#/Vol]Ordere d By: Jennifer Duran on 02-12-2022 RBC (Bld) [#/Vol] 4.20 10*6/uL 3.60-5.00 [facility] RBC morphologyOrdered By: Pool Duran on 02-12-2022 RBC morphology finding Nom (Bld) N/A [facility] Serum or plasma alanine syed otransferase measurement without P-5'-P (enzymatic activiOrdered By: Jennifer Duran on 02-12-2022 ALT No additional P-5'-P [Catalytic activity/Vol] 69 U/L 10-60 [facility] Serum or plasma albumin/glob ulin mass ratioOrdered By: Jennifer Duran on 02-12-2022 Albumin/Globulin [Mass ratio] 1.3 {ratio} [facility] Serum or plasma alkaline zeeshan sphatase measurement (enzymatic activity/volume)Ordered By: Jennifer Duran on 02-12-2022 ALP [Catalytic activity/Vol] 73 U/L 32-92 [facility] Serum or plasma anion gap de terminationOrdered By: Jennifer Duran on 02-12-2022 Anion gap [Moles/Vol] 13.2 mmol/L 6.0-15.0 [facility] Serum or plasma aspartate am inotransferase measurement (enzymatic activity/volume)Ordered By: Jennifer Duran on 02-12-2022 AST [Catalytic activity/Vol] 42 U/L 10-42 [facility] Serum or plasma calcium donaldo urement (mass/volume)Ordered By: Jennifer Duran on 02-12-2022 Calcium [Mass/Vol] 9.3 mg/dL 8.2-10.2 [facility] Serum or plasma chloride claudia surement (moles/volume)Ordered By: Jennifer Duran on 02-12-2022 Chloride [Moles/Vol] 101 mmol/L 95-114 [facility] Serum or plasma glucose donaldo urement (mass/volume)Ordered By: Jennifer Duran on 02-12-2022 Glucose [Mass/Vol] 98 mg/dL 70-100 [facility] Comment on above: ADA recommended refe rence [...] on 02-12-2022 Potassium [Moles/Vol] 3.6 mmol/L 3.5-5.1 [place] Serum or plasma sodium measu rement (moles/volume)Ordered By: Jennifer Duran on 02-12-2022 Sodium [Moles/Vol] 136 mmol/L 136-146 [facility] Serum or plasma total biliru bin measurement (mass/volume)Ordered By: Jennifer Duran on 02-12-2022 Bilirubin [Mass/Vol] 0.4 mg/dL 0.3-1.2 [facility] Serum or plasma total carbon dioxide measurement (moles/volume)Ordered By: Jennifer Duran on 02-12-2022 CO2 [Moles/Vol] 25.4 mmol/L 22.0-30.0 [facility] Serum or plasma urea nitroge n measurement (mass/volume)Ordered By: Jennifer Duran on 02-12-2022 Urea nitrogen [Mass/Vol] 4 mg/dL 9-23 [facility] Basophils Auto (Bld) [#/Vol] Ordered By: Kendra Persaud on 09-14-2021 Basophils (Bld) [#/Vol] 0.1 10*3/uL 0.0-0.2 [facility] Basophils/100 WBC Auto (Bld) Ordered By: Kendra Persaud on 09-14-2021 Basophils/100 WBC (Bld) 1.3 % [facility] Bilirubin Test strip Ql (U)O rdered By: Kendra Persaud on 09-14-2021 Bilirubin Ql (U) Negative Negative [facility] Blood hemoglobin measurement (mass/volume)Ordered By: Kendra Persaud on 09-14-2021 Hemoglobin (Bld) [Mass/Vol] 9.7 g/dL 11.8-15.4 [facility] Blood leukocytes automated c ount (number/volume)Ordered By: Kendra Persaud on 09-14-2021 WBC (Bld) [#/Vol] 8.9 10*3/uL 4.5-11.0 [facility] Body fluid albumin measureme nt (mass/volume)Ordered By: Kendra Persaud on 09-14-2021 Albumin (Body fld) [Mass/Vol] 3.7 g/dL 3.2-5.5 [facility] Color Auto (U)Ordered By: Jazmin Persaud on 09-14-2021 Color (U) Yellow Yellow [facility] Creatinine and Glomerular fi ltration rate.predicted panel (S/P/Bld)Ordered By: Kendra Persaud on 09-14-2021 Creatinine [Mass/Vol] 0.71 mg/dL 0.44-1.03 [place] Eosinophils Auto (Bld) [#/Vo l]Ordered By: Kendra Persaud on 09-14-2021 Eosinophils (Bld) [#/Vol] 0.0 10*3/uL 0.0-0.45 [facility] Eosinophils/100 WBC Auto (Bl d)Ordered By: Kendra Persaud on 09-14-2021 Eosinophils/100 WBC (Bld) 0.4 % [facility] Erythrocyte distribution wid th Auto (RBC) [Ratio]Ordered By: Kendra Persaud on 09-14-2021 Erythrocyte distribution width (RBC) [Ratio] 17.0 % 11.9-15.3 [facility] Estimated glomerular filtrat ion rate (GFR) non- AmericanOrdered By: Kendra Persaud on 09-14-2021 GFR/1.73 sq M.predicted among non-blacks MDRD (S/P/Bld) [Vol rate/Area] > 60 mL/Min [facility] Globulin Calc (S) [Mass/Vol] Ordered By: Kendra Persaud on 09-14-2021 Globulin (S) [Mass/Vol] 3.2 g/dL F [facility] HCG ( test) IA.rapi d Ql (U)Ordered By: Kendra Persaud on 09-14-2021 HCG ( test) Ql (U) Negative [facility] Hematocrit Auto (Bld) [Volum e fraction]Ordered By: Kendra Persaud on 09-14-2021 Hematocrit (Bld) [Volume fraction] 31.9 % 34.0-46.4 [facility] Ketones Auto test strip (U) [Mass/Vol]Ordered By: Kendra Persaud on 09-14-2021 Ketones (U) [Mass/Vol] Negative Negative Fi [facility] - Chemistry and C hemistry - challengeOrdered By: Kendra Persaud on 09-14-2021 Lipase [Catalytic activity/Vol] 36.0 U/L 22-51 [facility] Laboratory - Hematology and Cell countsOrdered By: Kendra Persaud on 09-14-2021 Nucleated RBC/100 WBC (Bld) [Ratio] 0.0 % 0-0.5 [facility] Lymphocytes Auto (Bld) [#/Vo l]Ordered By: Kendra Persaud on 09-14-2021 Lymphocytes (Bld) [#/Vol] 4.1 10*3/uL 1.00-4.8 [facility] Lymphocytes/100 WBC Auto (Bl d)Ordered By: Kendra Persaud on 09-14-2021 Lymphocytes/100 WBC (Bld) 45.7 % [facility] MCH Auto (RBC) [Entitic mass ]Ordered By: Kendra Persaud on 09-14-2021 MCH (RBC) [Entitic mass] 21.3 pg 24.7-34.3 [facility] MCHC Auto (RBC) [Mass/Vol]Or dered By: Kendra Persaud on 09-14-2021 MCHC (RBC) [Mass/Vol] 30.4 g/dL 32.0-35.0 [place] MCV Auto (RBC) [Entitic vol] Ordered By: Kendra Persaud on 09-14-2021 MCV (RBC) [Entitic vol] 70.0 fL 80-100 F [facility] Monocytes Auto (Bld) [#/Vol] Ordered By: Kendra Persaud on 09-14-2021 Monocytes (Bld) [#/Vol] 0.7 10*3/uL 0.0-0.8 [facility] Monocytes/100 WBC Auto (Bld) Ordered By: Kendra Persaud on 09-14-2021 Monocytes/100 WBC (Bld) 7.8 % F [facility] Neutrophils Auto (Bld) [#/Vo l]Ordered By: Kendra Persaud on 09-14-2021 Neutrophils (Bld) [#/Vol] 4.0 10*3/uL 1.8-7.7 [facility] Neutrophils/100 WBC Auto (Bl d)Ordered By: Kendra Persaud on 09-14-2021 Neutrophils/100 WBC (Bld) 44.8 % [facility] Nitrite Test strip Ql (U)Ord ered By: Kendra Persaud on 09-14-2021 Nitrite Ql (U) Negative Negative [facility] No Panel InformationOrdered By: Kendra Persaud on 09-14-2021 Estimated GFR () > 60 mL/Min [facility] Comment on above: GFR estimated refere nce range: According to KDOQI guidelines, <60 ml/min/1.73m2 is sufficient to diagnose a patient with chronic kidney disease. Pharmacy Creatinine Clearance (Chem 119.44 [facility] Platelet mean volume Auto (B ld) [Entitic vol]Ordered By: Kendra Persaud on 09-14-2021 Platelet mean volume (Bld) [Entitic vol] 7.4 fL 6.3-10.7 [facility] Platelets Auto (Bld) [#/Vol] Ordered By: Kendra Persaud on 09-14-2021 Platelets (Bld) [#/Vol] 604 10*3/uL 150-450 [facility] Protein Auto test strip (U) [Mass/Vol]Ordered By: Kendra Persaud on 09-14-2021 Protein (U) [Mass/Vol] Negative Negative Fi [facility] Protein [Mass/volume] in Ser um or PlasmaOrdered By: Kendra Persaud on 09-14-2021 Protein [Mass/Vol] 6.9 g/dL 6.1-7.9 [facility] RBC Auto (Bld) [#/Vol]Ordere d By: Kendra Persaud on 09-14-2021 RBC (Bld) [#/Vol] 4.55 10*6/uL 3.60-5.00 [facility] Serum or plasma alanine syed otransferase measurement without P-5'-P (enzymatic activiOrdered By: Kendra Persaud on 09-14-2021 ALT No additional P-5'-P [Catalytic activity/Vol] 16 U/L 10-60 [facility] Serum or plasma albumin/glob ulin mass ratioOrdered By: Kendra Persaud on 09-14-2021 Albumin/Globulin [Mass ratio] 1.2 {ratio} [facility] Serum or plasma alkaline zeeshan sphatase measurement (enzymatic activity/volume)Ordered By: Kendra Persaud on 09-14-2021 ALP [Catalytic activity/Vol] 48 U/L 32-92 [facility] Serum or plasma aspartate am inotransferase measurement (enzymatic activity/volume)Ordered By: Kendra Persaud 09-14-2021 AST [Catalytic activity/Vol] 17 U/L 10-42 [facility] Serum or plasma calcium donaldo urement (mass/volume)Ordered By: Kendra Persaud on 09-14-2021 Calcium [Mass/Vol] 9.0 mg/dL 8.2-10.2 [facility] Serum or plasma chloride claudia surement (moles/volume)Ordered By: Kendra Persaud on 09-14-2021 Chloride [Moles/Vol] 105 mmol/L 95-114 [facility] Serum or plasma glucose donaldo urement (mass/volume)Ordered By: Kendra Persaud on 09-14-2021 Glucose [Mass/Vol] 94 mg/dL 70-100 [facility] Comment on above: ADA recommended refe rence rangeRandom Glucose Reference Range is dependent on time and content of last meal. Glucose of more than 200 mg/dL in a nonstressed, ambulatory subject supports the diagnosis of Diabetes Mellitus. Serum or plasma potassium me asurement (moles/volume)Ordered By: Kendra Persaud on 09-14-2021 Potassium [Moles/Vol] 3.1 mmol/L 3.5-5.1 [place] Serum or plasma sodium measu rement (moles/volume)Ordered By: Kendra Persaud on 09-14-2021 Sodium [Moles/Vol] 139 mmol/L 136-146 [facility] Serum or plasma total biliru bin measurement (mass/volume)Ordered By: Kendra Persaud on 09-14-2021 Bilirubin [Mass/Vol] 0.5 mg/dL 0.3-1.2 [facility] Serum or plasma total carbon dioxide measurement (moles/volume)Ordered By: Kendra Persaud on 09-14-2021 CO2 [Moles/Vol] 23.7 mmol/L 22.0-30.0 [facility] Serum or plasma urea nitroge n measurement (mass/volume)Ordered By: Kendra Persaud on 09-14-2021 Urea nitrogen [Mass/Vol] 4 mg/dL 9-23 [facility] Specific gravity Auto test s trip (U) [Rel density]Ordered By: Kendra Persaud on 09-14-2021 Specific gravity (U) [Rel density] 1.004 1.001-1.030 [facility] Urine clarity by refractomet ry automatedOrdered By: Kendra Persaud 09-14-2021 Clarity Refractometry automated (U) Clear Clear [facility] Urine glucose measurement by automated test strip (mass/volume)Ordered By: Kendra Persaud on 09-14-2021 Glucose Auto test strip (U) [Mass/Vol] Normal mg/dL Normal [facility] Urine hemoglobin detection b y automated test stripOrdered By: Kendra Persaud on 09-14-2021 Hemoglobin Auto test strip Ql (U) Negative Negative [facility] Urine leukocyte esterase det ection by automated test stripOrdered By: Kendra Persaud on 09-14-2021 Leukocyte esterase Auto test strip Ql (U) Negative Negative [facility] Urobilinogen Auto test strip (U) [Mass/Vol]Ordered By: Kendra Persaud on 09-14-2021 Urobilinogen (U) [Mass/Vol] Normal mg/dL Normal [facility] pH Auto test strip (U)Ordere d By: Kendra Persaud on 09-14-2021 pH (U) 6.5 [pH] 5.0-9.0 [facility] Basophils Auto (Bld) [#/Vol] Ordered By: Augustus Santiago on 07-04-2021 Basophils (Bld) [#/Vol] 0.1 10*3/uL 0.0-0.2 [facility] Basophils/100 WBC Auto (Bld) Ordered By: Augustus Santiago on 07-04-2021 Basophils/100 WBC (Bld) 0.9 % [facility] Blood hemoglobin measurement (mass/volume)Ordered By: Augustus Santiago on 07-04-2021 Hemoglobin (Bld) [Mass/Vol] 10.2 g/dL 11.8-15.4 [facility] Blood leukocytes automated c ount (number/volume)Ordered By: Augustus Santiago on 07-04-2021 WBC (Bld) [#/Vol] 6.6 10*3/uL 4.5-11.[address] [facility] [address] biopsyOrdered By: Augustus powell on 07-04-2021 Transferrin [Mass/Vol] 360 mg/dL 180-380 Fi [facility] Creatinine and Glomerular fi ltration rate.predicted panel (S/P/Bld)Ordered By: Augustus Santiago on 07-04-2021 Creatinine [Mass/Vol] 0.69 mg/dL 0.44-1.03 [place] Eosinophils Auto (Bld) [#/Vo l]Ordered By: Augustus Santiago on 07-04-2021 Eosinophils (Bld) [#/Vol] 0.1 10*3/uL 0.0-0.45 [facility] Eosinophils/100 WBC Auto (Bl d)Ordered By: Augustus Santiago on 07-04-2021 Eosinophils/100 WBC (Bld) 1.2 % [facility] Erythrocyte distribution wid th Auto (RBC) [Ratio]Ordered By: Augustus Santiago on 07-04-2021 Erythrocyte distribution width (RBC) [Ratio] 17.2 % 11.9-15.3 [facility] Estimated glomerular filtrat ion rate (GFR) non- AmericanOrdered By: Augustus Santiago on 07-04-2021 GFR/1.73 sq M.predicted among non-blacks MDRD (S/P/Bld) [Vol rate/Area] > 60 mL/Min [facility] Hematocrit Auto (Bld) [Volum e fraction]Ordered By: Augustus Santiago on 07-04-2021 Hematocrit (Bld) [Volume fraction] 32.0 % 34.0-46.4 [facility] Iron [Mass/volume] in Serum or PlasmaOrdered By: Augustus Santiago on 07-04-2021 Iron [Mass/Vol] 10 ug/dL 40-150 [facility] Iron binding capacity [Mass/ volume] in Serum or PlasmaOrdered By: Augustus Santiago on 07-04-2021 Iron binding capacity [Mass/Vol] 504 ug/dL 255-450 [facility] Iron saturation [Mass Fracti on] in Serum or PlasmaOrdered By: Augustus Santiago on 07-04-2021 Iron saturation [Mass fraction] 1.0 % 20-50 [facility] Laboratory - Hematology and Cell countsOrdered By: Augustus Santiago on 07-04-2021 Nucleated RBC/100 WBC (Bld) [Ratio] 0.0 % 0-0.5 [facility] Lymphocytes Auto (Bld) [#/Vo l]Ordered By: Augustus Santiago on 07-04-2021 Lymphocytes (Bld) [#/Vol] 1.9 10*3/uL 1.00-4.8 [facility] Lymphocytes/100 WBC Auto (Bl d)Ordered By: Augustus Santiago on 07-04-2021 Lymphocytes/100 WBC (Bld) 28.4 % [facility] MCH Auto (RBC) [Entitic mass ]Ordered By: Augustus Santiago on 07-04-2021 MCH (RBC) [Entitic mass] 22.7 pg 24.7-34.3 [facility] MCHC Auto (RBC) [Mass/Vol]Or dered By: Augustus Santiago on 07-04-2021 MCHC (RBC) [Mass/Vol] 31.9 g/dL 32.0-35.0 [place] MCV Auto (RBC) [Entitic vol] Ordered By: Augustus Santiago on 07-04-2021 MCV (RBC) [Entitic vol] 71.3 fL 80-100 F [facility] Monocytes Auto (Bld) [#/Vol] Ordered By: Augustus Santiago on 07-04-2021 Monocytes (Bld) [#/Vol] 0.5 10*3/uL 0.0-0.8 [facility] Monocytes/100 WBC Auto (Bld) Ordered By: Augustus Santiago on 07-04-2021 Monocytes/100 WBC (Bld) 7.6 % F [facility] Neutrophils Auto (Bld) [#/Vo l]Ordered By: Augustus Santiago on 07-04-2021 Neutrophils (Bld) [#/Vol] 4.1 10*3/uL 1.8-7.7 [facility] Neutrophils/100 WBC Auto (Bl d)Ordered By: Augustus Santiago on 07-04-2021 Neutrophils/100 WBC (Bld) 61.9 % [facility] No Panel InformationOrdered By: Augustus Santiago on 07-04-2021 D-Dimer Quantitative (PE/DVT) < 200 ng/mL 0-243 [facility] Comment on above: The reference range [...] conditions. Estimated GFR () > 60 mL/Min [facility] Comment on above: GFR estimated refere nce range: According to KDOQI guidelines, <60 ml/min/1.73m2 is sufficient to diagnose a patient with chronic kidney disease. Pharmacy Creatinine Clearance (Chem N/A [facility] Platelet mean volume Auto (B ld) [Entitic vol]Ordered By: Augustus Santiago on 07-04-2021 Platelet mean volume (Bld) [Entitic vol] 7.9 fL 6.3-10.7 [facility] Platelets Auto (Bld) [#/Vol] Ordered By: Augustus Santiago on 07-04-2021 Platelets (Bld) [#/Vol] 457 10*3/uL 150-450 [facility] RBC Auto (Bld) [#/Vol]Ordere d By: Augustus Santiago on 07-04-2021 RBC (Bld) [#/Vol] 4.48 10*6/uL 3.60-5.00 [facility] Serum or plasma calcium donaldo urement (mass/volume)Ordered By: Augustus Santiago on 07-04-2021 Calcium [Mass/Vol] 8.9 mg/dL 8.2-10.2 [facility] Serum or plasma chloride claudia surement (moles/volume)Ordered By: Augustus Santiago on 07-04-2021 Chloride [Moles/Vol] 105 mmol/L 95-114 [facility] Serum or plasma glucose donaldo urement (mass/volume)Ordered By: Augustus Santiago on 07-04-2021 Glucose [Mass/Vol] 110 mg/dL 70-100 [facility] Comment on above: ADA recommended refe rence rangeRandom Glucose Reference Range is dependent on time and content of last meal. Glucose of more than 200 mg/dL in a nonstressed, ambulatory subject supports the diagnosis of Diabetes Mellitus. Serum or plasma potassium me asurement (moles/volume)Ordered By: Augustus Santiago on 07-04-2021 Potassium [Moles/Vol] 3.5 mmol/L 3.5-5.1 [place] Serum or plasma sodium measu rement (moles/volume)Ordered By: Augustus Santiago on 07-04-2021 Sodium [Moles/Vol] 136 mmol/L 136-146 [facility] Serum or plasma total carbon dioxide measurement (moles/volume)Ordered By: Augustus Santiago on 07-04-2021 CO2 [Moles/Vol] 23.0 mmol/L 22.0-30.0 [facility] Serum or plasma urea nitroge n measurement (mass/volume)Ordered By: Augustus Santiago on 07-04-2021 Urea nitrogen [Mass/Vol] 5 mg/dL 03-05 [facility] Cardiac Stress Teston 2020 Cardiac Stress Test [facility] [address], [address], [place] [address] TRANSTHORACIC ECHOCARDIOGRAM REPORT Patient Name: LIVIA NOYOLA Reading Physician: [id number] Raphael Alas MD Study Date: 08/06/2020 Referring Physician: [id number] ANNA CANTU MRN/PID: [id number] PCP: Jennifer Duran Accession/Order#: [id number] Department Location: [facility] [place] Date of : 1985 Fellow: Gender: F Nurse: Admit Date: Break Out Worker: Josephine Newton RDCS, RVT Height: 165.10 cm CC Report to: Weight: 88.00 kg Study Type: Echocardiogram BSA: 1.95 m2 Diagnosis/ICD: R06.00-Dyspnea, unspecified; R00.0-Tachycardia, unspecified Indication: Obesity, Family History of CAD Procedure/CPT: Echo Complete w Full [id number] Study Detail: The following Echo studies were [...] 0.9 m/s (0.6-0.9m/s) PV Max P.0 mmHg [id number] Raphael Alas MD Electronically signed on 08/07/2020 at 4:26:59 PM Final Normal [facility] Vital Signs Date Time Vital Sign Value Performing Clinician Facility 04-03-2024 14:49-0400 Body height 165.1 cm [facility] 04-03-2024 14:49-0400 Body mass index (BMI) [Ratio] 31.62 kg/m2 [facility] 04-03-2024 14:49-0400 Body weight 86.18 kg [facility] 03-28-2024 11:02-0400 Body height 165.1 cm Adiel Aparicio MD Work Phone: [facility] 03-28-2024 11:02-0400 Body mass index (BMI) [Ratio] 32.98 kg/m2 Adiel Aparicio MD Work Phone: [facility] 03-28-2024 11:02-0400 Body weight 89.9 kg Adiel Aparicio MD Work Phone: [facility] 03-23-2024 12:03-0400 Body mass index (BMI) [Ratio] 32.5 kg/m2 [facility] 03-23-2024 12:03-0400 Body temperature 97.9 [degF] [facility] 03-23-2024 12:03-0400 Body weight 88.9 kg [facility] 03-23-2024 12:03-0400 Diastolic blood pressure 64 mm[Hg] [facility] 03-23-2024 12:03-0400 Heart rate 91 /min [facility] 03-23-2024 12:03-0400 SaO2% (BldA) [Mass fraction] 98 % [facility] 03-23-2024 12:03-0400 Systolic blood pressure 102 mm[Hg] [facility] 03-23-2024 08:40-0400 Body height 165.1 cm [facility] 03-03-2024 15:27-0400 Body temperature 98.71 [degF] Davi Pay DO Work Phone: [facility] 03-03-2024 15:27-0400 Diastolic blood pressure 84 mm[Hg] Davi Pay DO Work Phone: [facility] 03-03-2024 15:27-0400 Heart rate 115 /min Davi Pay DO Work Phone: [facility] 03-03-2024 15:27-0400 Respiratory rate 18 /min Davi Pay DO Work Phone: [facility] 03-03-2024 15:27-0400 SaO2% (BldA) [Mass fraction] 97 % Davi Pay DO Work Phone: [facility] 03-03-2024 15:27-0400 Systolic blood pressure 164 mm[Hg] Davi Pay DO Work Phone: [facility] 02-24-2024 20:29-0400 Body height 165.1 cm Denton Delcid MD Work Phone: [facility] 02-24-2024 20:29-0400 Body temperature 98.01 [degF] Denton Delcid MD Work Phone: [facility] 02-24-2024 20:29-0400 Diastolic blood pressure 72 mm[Hg] Denton Delcid MD Work Phone: [facility] 02-24-2024 20:29-0400 Heart rate 94 /min Denton Delcid MD Work Phone: [facility] 02-24-2024 20:29-0400 Respiratory rate 20 /min Denton Delcid MD Work Phone: [facility] 02-24-2024 20:29-0400 SaO2% (BldA) [Mass fraction] 99 % Denton Delcid MD Work Phone: [facility] 02-24-2024 20:29-0400 Systolic blood pressure 129 mm[Hg] Denton Delcid MD Work Phone: [facility] 02-16-2024 16:47-0400 Diastolic blood pressure 68 mm[Hg] Jennifer Moore MD Work Phone: [facility] 02-16-2024 16:47-0400 Heart rate 99 /min Jennifer Moore MD Work Phone: [facility] 02-16-2024 16:47-0400 SaO2% (BldA) [Mass fraction] 96 % Jennifer Moore MD Work Phone: [facility] 02-16-2024 16:47-0400 Systolic blood pressure 115 mm[Hg] Jennifer Moore MD Work Phone: [facility] 02-16-2024 16:38-0400 Respiratory rate 18 /min Jennifer Moore MD Work Phone: [facility] 02-16-2024 13:28-0400 Body temperature 98.29 [degF] Jennifer Moore MD Work Phone: [facility] 02-13-2024 00:26-0400 Body temperature 98.24 [degF] Ritesh [facility] 02-13-2024 00:26-0400 Diastolic blood pressure 72 mm[Hg] [facility] 02-13-2024 00:26-0400 Heart rate 86 /min [facility] 02-13-2024 00:26-0400 Respiratory rate 16 /min [facility] 02-13-2024 00:26-0400 SaO2% (BldA) [Mass fraction] 100 % [facility] 02-13-2024 00:26-0400 Systolic blood pressure 109 mm[Hg] Rites[facility] 01-22-2024 12:13-0400 Body height 165.1 cm Eren Camejo DO Work Phone: [facility] [employer] 01-22-2024 12:13-0400 Body mass index (BMI) [Ratio] 29.95 kg/m2 Eren Camejo DO Work Phone: [facility] [employer] 01-22-2024 12:13-0400 Body temperature 98.71 [degF] Eren Camejo DO Work Phone: [facility] [employer] 01-22-2024 12:13-0400 Body weight 81.65 kg Eren Camejo DO Work Phone: [facility] [employer] 01-22-2024 12:13-0400 Diastolic blood pressure 92 mm[Hg] Eren Camejo DO Work Phone: [facility] [employer] 01-22-2024 12:13-0400 Heart rate 109 /min Eren Camejo DO Work Phone: [facility] [employer] 01-22-2024 12:13-0400 Respiratory rate 18 /min Eren Camejo DO Work Phone: [facility] [employer] 01-22-2024 12:13-0400 SaO2% (BldA) [Mass fraction] 100 % Eren Camejo DO Work Phone: [facility] [employer] 01-22-2024 12:13-0400 Systolic blood pressure 152 mm[Hg] Eren Camejo DO Work Phone: [facility] [employer] 01-19-2024 11:18-0400 Body height 165.1 cm DO Jennifer Duran Work Phone: [facility] 01-19-2024 11:18-0400 Body mass index (BMI) [Ratio] 31.9 kg/m2 DO Jennifer Duran Work Phone: [facility] 01-19-2024 11:18-0400 Body temperature 98.2 [degF] DO Jennifer Girvin Work Phone: [facility] 01-19-2024 11:18-0400 Body weight 87.08 kg DO Jennifer Girvin Work Phone: [facility] 01-19-2024 11:18-0400 Diastolic blood pressure 82 mm[Hg] DO Jennifer Girvin Work Phone: [facility] 01-19-2024 11:18-0400 Heart rate 102 /min DO Jennifer Girvin Work Phone: [facility] 01-19-2024 11:18-0400 Respiratory rate 18 /min DO Jennifer Girvin Work Phone: [facility] 01-19-2024 11:18-0400 SaO2% (BldA) [Mass fraction] 98 % DO Jennifer Girvin Work Phone: [facility] 01-19-2024 11:18-0400 Systolic blood pressure 122 mm[Hg] DO Jennifer Girivelisse Work Phone: [facility] 11-08-2023 14:03-0400 Body height 165.1 cm DO Jennifer Girivelisse Work Phone: [facility] 11-08-2023 14:03-0400 Body temperature 98.1 [degF] DO Jennifer Girvin Work Phone: [facility] 11-08-2023 14:03-0400 Body weight 82.85 kg DO Jennifer Girvin Work Phone: [facility] 11-08-2023 14:03-0400 Diastolic blood pressure 77 mm[Hg] DO Jennifer Girvin Work Phone: [facility] 11-08-2023 14:03-0400 Heart rate 86 /min DO Jennifer Girvin Work Phone: [facility] 11-08-2023 14:03-0400 Respiratory rate 16 /min DO Jennifer Girvin Work Phone: [facility] 11-08-2023 14:03-0400 SaO2% (BldA) [Mass fraction] 100 % DO Jennifer Duran Work Phone: [facility] 11-08-2023 14:03-0400 Systolic blood pressure 142 mm[Hg] DO Jennifer Duran Work Phone: [facility] 11-08-2023 11:56-0400 Body height 165.1 cm Eren Camejo DO Work Phone: [employer] 11-08-2023 11:56-0400 Body mass index (BMI) [Ratio] 30.45 kg/m2 Eren Camejo DO Work Phone: [facility] [employer] 11-08-2023 11:56-0400 Body temperature 97.81 [degF] Eren Camejo DO Work Phone: [employer] 11-08-2023 11:56-0400 Body weight 83.01 kg Eren Camejo DO Work Phone: [employer] 11-08-2023 11:56-0400 Diastolic blood pressure 86 mm[Hg] Eren Camejo DO Work Phone: [employer] 11-08-2023 11:56-0400 Heart rate 100 /min Eren Camejo DO Work Phone: [employer] 11-08-2023 11:56-0400 Respiratory rate 18 /min Eren Camejo DO Work Phone: [employer] 11-08-2023 11:56-0400 SaO2% (BldA) [Mass fraction] 99 % Eren Camejo DO Work Phone: [employer] 11-08-2023 11:56-0400 Systolic blood pressure 133 mm[Hg] Eren Camejo DO Work Phone: [employer] 09-30-2023 02:09-0400 Diastolic blood pressure 89 mm[Hg] [facility] 09-30-2023 02:09-0400 Heart rate 124 /min [facility]ites[facility] 09-30-2023 02:09-0400 Mean blood pressure 109 mm[Hg] Ritesh [facility] 09-30-2023 02:09-0400 Respiratory rate 20 /min [facility] 09-30-2023 02:09-0400 SaO2% (BldA) [Mass fraction] 98 % [facility] 09-30-2023 02:09-0400 Systolic blood pressure 149 mm[Hg] [facility]itesh [facility] 09-30-2023 01:00-0400 Diastolic blood pressure 82 mm[Hg] [facility] 09-30-2023 01:00-0400 Heart rate 118 /min [facility] 09-30-2023 01:00-0400 Mean blood pressure 104 mm[Hg] [facility] 09-30-2023 01:00-0400 SaO2% (BldA) [Mass fraction] 99 % [facility] 09-30-2023 01:00-0400 Systolic blood pressure 147 mm[Hg] [facility] 09-29-2023 23:40-0400 Body temperature 97.7 [degF] [facility] 09-29-2023 23:40-0400 Diastolic blood pressure 92 mm[Hg] [facility] 09-29-2023 23:40-0400 Heart rate 139 /min [facility] 09-29-2023 23:40-0400 Respiratory rate 20 /min [facility] 09-29-2023 23:40-0400 SaO2% (BldA) [Mass fraction] 100 % Ritesh Ivana [facility] 09-29-2023 23:40-0400 Systolic blood pressure 144 mm[Hg] Ritesh Ivana [facility] 09-26-2023 18:00-0400 Heart rate 119 /min Konstantin Warde [facility] 09-26-2023 18:00-0400 SaO2% (BldA) [Mass fraction] 96 % Konstantin Zohaib [facility] 09-26-2023 17:30-0400 Diastolic blood pressure 124 mm[Hg] Konstantin Zohaib [facility] 09-26-2023 17:30-0400 Heart rate 105 /min Konstantin Zohaib [facility] 09-26-2023 17:30-0400 Mean blood pressure 129 mm[Hg] Konstantin Zohaib [facility] 09-26-2023 17:30-0400 SaO2% (BldA) [Mass fraction] 100 % Konstantin Zohaib [facility] 09-26-2023 17:30-0400 Systolic blood pressure 139 mm[Hg] Konstantin Zohaib [facility] 09-26-2023 16:48-0400 Diastolic blood pressure 82 mm[Hg] Konstantin Zohaib [facility] 09-26-2023 16:48-0400 Heart rate 126 /min Konstantin Zohaib [facility] 09-26-2023 16:48-0400 Mean blood pressure 101 mm[Hg] Konstantin Zohaib [facility] 09-26-2023 16:48-0400 Respiratory rate 18 /min Konstantin Warde [facility] 09-26-2023 16:48-0400 SaO2% (BldA) [Mass fraction] 100 % Konstantin Zohaib [facility] 09-26-2023 16:48-0400 Systolic blood pressure 139 mm[Hg] Konstantin Zohaib [facility] 09-26-2023 16:30-0400 Diastolic blood pressure 96 mm[Hg] Konstantin Warde [facility] 09-26-2023 16:30-0400 Mean blood pressure 105 mm[Hg] Konstantin Zohaib [facility] 09-26-2023 16:30-0400 Respiratory rate 18 /min Konstantin Warde [facility] 09-26-2023 16:30-0400 Systolic blood pressure 122 mm[Hg] Konstantin Warde [facility] 09-26-2023 14:45-0400 Respiratory rate 18 /min Konstantin Warde [facility] 09-26-2023 14:13-0400 Body temperature 98.6 [degF] Konstantin Zohaib [facility] 07-31-2023 18:01-0500 Diastolic blood pressure 87 mm[Hg] Jignesh Dumont [facility] 07-31-2023 18:01-0500 Heart rate 121 /min Jignesh Dumont [facility] 07-31-2023 18:01-0500 Mean blood pressure 99 mm[Hg] Jignesh Tim [facility] 07-31-2023 18:01-0500 Respiratory rate 16 /min Jignesh Tim [facility] 07-31-2023 18:01-0500 SaO2% (BldA) [Mass fraction] 99 % Jignesh Tim [facility] 07-31-2023 18:01-0500 Systolic blood pressure 123 mm[Hg] Jignesh Tim [facility] 07-31-2023 17:00-0500 Diastolic blood pressure 77 mm[Hg] Jignesh Tim [facility] 07-31-2023 17:00-0500 Heart rate 96 /min Jignesh Tim [facility] 07-31-2023 17:00-0500 Mean blood pressure 92 mm[Hg] Jignesh Tim [facility] 07-31-2023 17:00-0500 Systolic blood pressure 122 mm[Hg] Jignesh Tim [facility] 07-31-2023 16:07-0500 Diastolic blood pressure 90 mm[Hg] Jignesh Tim [facility] 07-31-2023 16:07-0500 Heart rate 117 /min Jignesh Tim [facility] 07-31-2023 16:07-0500 Mean blood pressure 105 mm[Hg] Jignesh Tim [facility] 07-31-2023 16:07-0500 Respiratory rate 19 /min Jignesh Tim [facility] 07-31-2023 16:07-0500 SaO2% (BldA) [Mass fraction] 100 % Jignesh Tim [facility] 07-31-2023 16:07-0500 Systolic blood pressure 135 mm[Hg] Jignesh Dumont [facility] 07-31-2023 16:06-0500 Respiratory rate 18 /min Jignesh Dumont [facility] 07-31-2023 15:34-0500 Body temperature 97.88 [degF] Jignesh Dumont [facility] 07-31-2023 15:34-0500 Heart rate 136 /min Jignesh Dumont [facility] 07-31-2023 15:34-0500 Respiratory rate 18 /min Jignesh Dumont [facility] 07-19-2023 12:40-0500 Body height 165.1 cm Jennifer Duran Other [facility] [employer] Other 04-30-2023 18:19-0500 Diastolic blood pressure 82 mm[Hg] DO Jennifer Duran Work Phone: [facility] 04-30-2023 18:19-0500 Heart rate 128 /min DO Jennifer Kendallivelisse Work Phone: [facility] 04-30-2023 18:19-0500 Respiratory rate 18 /min DO Jennifer Duran Work Phone: [facility] 04-30-2023 18:19-0500 SaO2% (BldA) [Mass fraction] 99 % DO Jennifer Duran Work Phone: [facility] 04-30-2023 18:19-0500 Systolic blood pressure 116 mm[Hg] DO Jennifer Duran Work Phone: [facility] 04-30-2023 16:43-0500 Body height 165.1 cm DO Jennifer Duran Work Phone: [facility] 04-30-2023 16:43-0500 Body temperature 98.1 [degF] DO Jennifer Duran Work Phone: [facility] 04-30-2023 16:43-0500 Body weight 62.3 kg DO Jennifer Duran Work Phone: [facility] 04-24-2023 15:51-0500 Diastolic blood pressure 81 mm[Hg] Jignesh Tim [facility] 04-24-2023 15:51-0500 Heart rate 98 /min Jignesh Tim [facility] 04-24-2023 15:51-0500 Mean blood pressure 94 mm[Hg] Jignesh Tim [facility] 04-24-2023 15:51-0500 Respiratory rate 17 /min Jignesh Tim [facility] 04-24-2023 15:51-0500 SaO2% (BldA) [Mass fraction] 99 % Jignesh Tim [facility] 04-24-2023 15:51-0500 Systolic blood pressure 120 mm[Hg] Jignesh Tim [facility] 04-24-2023 15:00-0500 Diastolic blood pressure 72 mm[Hg] Jignesh Tim [facility] 04-24-2023 15:00-0500 Heart rate 85 /min Jignesh Tim [facility] 04-24-2023 15:00-0500 Mean blood pressure 87 mm[Hg] Jignesh Tim [facility] 04-24-2023 15:00-0500 Respiratory rate 16 /min Jignesh Tim [facility] 04-24-2023 15:00-0500 SaO2% (BldA) [Mass fraction] 96 % Jignesh Tim [facility] 04-24-2023 15:00-0500 Systolic blood pressure 117 mm[Hg] Jignesh Dumont [facility] 04-24-2023 14:00-0500 Diastolic blood pressure 88 mm[Hg] Jignesh Tim [facility] 04-24-2023 14:00-0500 Heart rate 99 /min Jignesh Tim [facility] 04-24-2023 14:00-0500 Mean blood pressure 100 mm[Hg] Jignesh Dumont [facility] 04-24-2023 14:00-0500 Respiratory rate 18 /min Jignesh Dumont [facility] 04-24-2023 14:00-0500 SaO2% (BldA) [Mass fraction] 97 % Jignesh Dumont [facility] 04-24-2023 14:00-0500 Systolic blood pressure 124 mm[Hg] Jignesh Dumont [facility] 04-24-2023 13:29-0500 Body temperature 99.14 [degF] Jignesh Dumont [facility] 04-24-2023 13:29-0500 Heart rate 118 /min Jignesh Dumont [facility] 04-03-2023 00:20-0400 Diastolic blood pressure 70 mm[Hg] DO Jennifer Duran Work Phone: [facility] 04-03-2023 00:20-0400 Heart rate 80 /min DO Jennifer Duran Work Phone: [facility] 04-03-2023 00:20-0400 SaO2% (BldA) [Mass fraction] 98 % DO Jennifer Duran Work Phone: [facility] 04-03-2023 00:20-0400 Systolic blood pressure 122 mm[Hg] DO Jennifer Duran Work Phone: [facility] 04-02-2023 21:48-0400 Diastolic blood pressure 75 mm[Hg] DO Jennifer Duran Work Phone: [facility] 04-02-2023 21:48-0400 Heart rate 90 /min DO Jennifer Duran Work Phone: [facility] 04-02-2023 21:48-0400 Respiratory rate 20 /min DO Jennifer Duran Work Phone: [facility] 04-02-2023 21:48-0400 SaO2% (BldA) [Mass fraction] 98 % DO Jennifer Duran Work Phone: [facility] 04-02-2023 21:48-0400 Systolic blood pressure 109 mm[Hg] DO Jennifer Duran Work Phone: [facility] 04-02-2023 20:23-0400 Body height 165.1 cm DO Jennifer Duran Work Phone: [facility] 04-02-2023 20:23-0400 Body temperature 98.2 [degF] DO Jennifer Duran Work Phone: [facility] 04-02-2023 20:23-0400 Body weight 81.64 kg DO Jennifer Duran Work Phone: [facility] 03-29-2023 16:11-0400 Body temperature 97.8 [degF] DO Jennifer Duran Work Phone: [facility] 03-29-2023 16:11-0400 Diastolic blood pressure 79 mm[Hg] DO Jennifer Duran Work Phone: [facility] 03-29-2023 16:11-0400 Heart rate 104 /min DO Jennifer Duran Work Phone: [facility] 03-29-2023 16:11-0400 Respiratory rate 16 /min DO Jennifer Duran Work Phone: [facility] 03-29-2023 16:11-0400 SaO2% (BldA) [Mass fraction] 98 % DO Jennifer Duran Work Phone: [facility] 03-29-2023 16:11-0400 Systolic blood pressure 123 mm[Hg] DO Jennifer Duran Work Phone: [facility] 03-29-2023 06:35-0400 Body height 165.1 cm DO Jennifer Duran Work Phone: [facility] 03-29-2023 06:35-0400 Body weight 87.5 kg DO Jennifer Duran Work Phone: [facility] 03-29-2023 05:41-0400 Diastolic blood pressure 85 mm[Hg] DO Jennifer Duran Work Phone: [facility] 03-29-2023 05:41-0400 Heart rate 110 /min DO Jennifer Duran Work Phone: [facility] 03-29-2023 05:41-0400 Respiratory rate 18 /min DO Jennifer Duran Work Phone: [facility] 03-29-2023 05:41-0400 SaO2% (BldA) [Mass fraction] 100 % DO Jenniefr Duran Work Phone: [facility] 03-29-2023 05:41-0400 Systolic blood pressure 160 mm[Hg] DO Jennifer Duran Work Phone: [facility] 03-29-2023 01:39-0400 Body height 165.1 cm DO Jennifer Duran Work Phone: [facility] 03-29-2023 01:39-0400 Body temperature 97.2 [degF] DO Jennifer Duran Work Phone: [facility] 03-29-2023 01:39-0400 Body weight 87 kg DO Jennifer Duran Work Phone: [facility] 02-06-2023 04:00-0400 Diastolic blood pressure 74 mm[Hg] DO Jennifer Duran Work Phone: [facility] 02-06-2023 04:00-0400 Heart rate 79 /min DO Jennifer Duran Work Phone: [facility] 02-06-2023 04:00-0400 Respiratory rate 15 /min DO Jennifer Duran Work Phone: [facility] 02-06-2023 04:00-0400 SaO2% (BldA) [Mass fraction] 99 % DO Jennifer Duran Work Phone: [facility] 02-06-2023 04:00-0400 Systolic blood pressure 119 mm[Hg] DO Jennifer Duran Work Phone: [facility] 02-05-2023 23:41-0400 Body height 165.1 cm DO Jennifer Duran Work Phone: [facility] 02-05-2023 23:41-0400 Body temperature 98 [degF] DO Jennifer Duran Work Phone: [facility] 02-05-2023 23:41-0400 Body weight 81.64 kg DO Jennifer Duran Work Phone: [facility] 01-12-2023 14:40-0400 Body height 165.1 cm Jennifer Duran Other [employer] [facility] [employer] Other 01-12-2023 14:40-0400 Body mass index (BMI) [Ratio] 33.44 kg/m2 Jennifer Duran Other [employer] Other 01-12-2023 14:40-0400 Body temperature 99.5 [degF] Jennifer Duran Other [employer] Other 01-12-2023 14:40-0400 Body weight 91.17 kg Jennifer Duran Other [employer] Other 01-12-2023 14:40-0400 Diastolic blood pressure 78 mm[Hg] Jennifer Duran Other [employer] Other 01-12-2023 14:40-0400 Respiratory rate 18 /min Jennifer Duran Other [employer] Other 01-12-2023 14:40-0400 SaO2% (BldA) [Mass fraction] 97 % Jennifer Duran Other [employer] Other 01-12-2023 14:40-0400 Systolic blood pressure 110 mm[Hg] Jennifer Duran Other [employer] Other 10-11-2022 16:20-0400 Body height 165.1 cm Jennifer Duran Other [employer] Other 07-12-2022 16:20-0500 Body height 165.1 cm Jennifer Duran Other [employer] Other 07-12-2022 16:20-0500 Body mass index (BMI) [Ratio] 31.2 kg/m2 Jennifer Duran Other [employer] Other 07-12-2022 16:20-0500 Body temperature 97.2 [degF] Jennifer Duran Other [employer] Other 07-12-2022 16:20-0500 Body weight 85.05 kg Jennifer Duran Other [employer] Other 07-12-2022 16:20-0500 Diastolic blood pressure 74 mm[Hg] Jennifer Duran Other [employer] Other 07-12-2022 16:20-0500 Respiratory rate 18 /min Jennifer Duran Other [employer] Other 07-12-2022 16:20-0500 SaO2% (BldA) [Mass fraction] 99 % Jennifer Duran Other [employer] Other 07-12-2022 16:20-0500 Systolic blood pressure 106 mm[Hg] Jennifer Duran Other [employer] Other 04-28-2022 04:00-0500 Diastolic blood pressure 70 mm[Hg] DO Jennifer Duran Work Phone: [facility] 04-28-2022 04:00-0500 Heart rate 81 /min DO Jennifer Duran Work Phone: [facility] 04-28-2022 04:00-0500 SaO2% (BldA) [Mass fraction] 96 % DO Jennifer Duran Work Phone: [facility] 04-28-2022 04:00-0500 Systolic blood pressure 110 mm[Hg] DO Jennifer Duran Work Phone: [facility] 04-28-2022 03:56-0500 Body height 165.1 cm DO Jennifer Duran Work Phone: [facility] 04-28-2022 03:56-0500 Body weight 80 kg DO Jennifer Duran Work Phone: [facility] 04-28-2022 03:56-0500 Respiratory rate 18 /min DO Jennifer Duran Work Phone: [facility] 04-28-2022 00:13-0500 Body temperature 97.2 [degF] DO Jennifer Duran Work Phone: [facility] 04-12-2022 15:40-0400 Body height 165.1 cm Jennifer Duran Other [employer] Other 04-12-2022 15:40-0400 Body mass index (BMI) [Ratio] 30.37 kg/m2 Jennifer Roger Other [employer] Other 04-12-2022 15:40-0400 Body temperature 98.8 [degF] Jennifer Duran Other [employer] Other 04-12-2022 15:40-0400 Body weight 82.78 kg Jennifer Duran Other [employer] Other 04-12-2022 15:40-0400 Diastolic blood pressure 76 mm[Hg] Jennifer Duran Other [employer] Other 04-12-2022 15:40-0400 Respiratory rate 18 /min Jennifer Duran Other [employer] Other 04-12-2022 15:40-0400 SaO2% (BldA) [Mass fraction] 98 % Jennifer Duran Other [employer] Other 04-12-2022 15:40-0400 Systolic blood pressure 110 mm[Hg] Jennifer Duran Other [employer] Other 04-09-2022 13:32-0400 Body temperature 97.59 [degF] Chair Patria Work Phone: [facility] 04-09-2022 13:32-0400 Diastolic blood pressure 64 mm[Hg] Chair Boyd Work Phone: [facility] 04-09-2022 13:32-0400 Heart rate 114 /min Chair Patria Work Phone: [facility] 04-09-2022 13:32-0400 Respiratory rate 18 /min Chair Patria Work Phone: [facility] 04-09-2022 13:32-0400 SaO2% (BldA) [Mass fraction] 97 % Chair Patria Work Phone: [facility] 04-09-2022 13:32-0400 Systolic blood pressure 116 mm[Hg] Chair Patria Work Phone: [facility] 03-26-2022 13:54-0400 Body temperature 97.9 [degF] Chair Boyd Work Phone: [facility] 03-26-2022 13:54-0400 Diastolic blood pressure 75 mm[Hg] Chair Boyd Work Phone: [facility] 03-26-2022 13:54-0400 Heart rate 82 /min Chair Boyd Work Phone: [facility] 03-26-2022 13:54-0400 Respiratory rate 18 /min Chair Patria Work Phone: [facility] 03-26-2022 13:54-0400 SaO2% (BldA) [Mass fraction] 100 % Chair Boyd Work Phone: [facility] 03-26-2022 13:54-0400 Systolic blood pressure 106 mm[Hg] Chair Boyd Work Phone: [facility] 03-10-2022 13:54-0400 Body height 165.1 cm Gil Ni APRN.ELIGIBILITY MANAGER Work Phone: [facility] 03-10-2022 13:54-0400 Body temperature 97.9 [degF] Gil Ni APRN.ELIGIBILITY MANAGER Work Phone: [facility] 03-10-2022 13:54-0400 Body weight 83.37 kg Gil Ni APRN.ELIGIBILITY MANAGER Work Phone: [facility] 03-10-2022 13:54-0400 Diastolic blood pressure 75 mm[Hg] Gil Ni APRN.ELIGIBILITY MANAGER Work Phone: [facility] 03-10-2022 13:54-0400 Heart rate 95 /min Gil Ni APRN.ELIGIBILITY MANAGER Work Phone: [facility] 03-10-2022 13:54-0400 Respiratory rate 16 /min Gil Ni APRN.ELIGIBILITY MANAGER Work Phone: [facility] 03-10-2022 13:54-0400 SaO2% (BldA) [Mass fraction] 100 % Gil Ni RECREATIONAL SPORTS DIRECTOR.ELIGIBILITY MANAGER Work Phone: [facility] 03-10-2022 13:54-0400 Systolic blood pressure 130 mm[Hg] Gil Ni RECREATIONAL SPORTS DIRECTOR.ELIGIBILITY MANAGER Work Phone: [facility] 12-04-2021 12:49-0400 Blood Pressure Location Yamilka Orzech [facility] 12-04-2021 12:49-0400 Body temperature 98.42 [degF] Yamilka Orzech [facility] 12-04-2021 12:49-0400 Diastolic blood pressure 82 mm[Hg] Yamilka Orzech [facility] 12-04-2021 12:49-0400 Heart rate 110 /min Yamilka Orzech [facility] 12-04-2021 12:49-0400 SaO2% (BldA) [Mass fraction] 99 % Yamilka Orzech [facility] 12-04-2021 12:49-0400 Systolic blood pressure 126 mm[Hg] Yamilka Orzech [facility] 10-16-2021 09:10-0400 Body height 165.1 cm Jennifer Duran Other [email or web address] Other 09-14-2021 19:31-0400 Diastolic blood pressure 82 mm[Hg] DO Jennifer Duran Work Phone: [facility] 09-14-2021 19:31-0400 Heart rate 87 /min DO Jennifer Duran Work Phone: [facility] 09-14-2021 19:31-0400 Respiratory rate 18 /min DO Jennifer Duran Work Phone: [facility] 09-14-2021 19:31-0400 SaO2% (BldA) [Mass fraction] 99 % DO Jennifer Duran Work Phone: [facility] 09-14-2021 19:31-0400 Systolic blood pressure 126 mm[Hg] DO Jennifer Duran Work Phone: [facility] 09-14-2021 14:45-0400 Body height 165.1 cm DO Jennifer Duran Work Phone: [facility] 09-14-2021 14:45-0400 Body mass index (BMI) [Ratio] 30.7 kg/m2 DO Jennifer Duran Work Phone: [facility] 09-14-2021 14:45-0400 Body temperature 98 [degF] DO Jennifer Duran Work Phone: [facility] 09-14-2021 14:45-0400 Body weight 83.91 kg DO Jennifer Duran Work Phone: [facility] 04-21-2021 16:20-0500 Body height 165.1 cm Jennifer Duran Other [facility] [employer] Other 04-21-2021 16:20-0500 Body mass index (BMI) [Ratio] 32.28 kg/m2 Jennifer Duran Other [facility] [employer] Other 04-21-2021 16:20-0500 Body temperature 98.3 [degF] Jennifer Duran Other [employer] [facility] [employer] Other 04-21-2021 16:20-0500 Body weight 88 kg Jennifer Duran Other [facility] [employer] Other 04-21-2021 16:20-0500 Diastolic blood pressure 82 mm[Hg] Jennifer Duran Other [email or web address] Other 04-21-2021 16:20-0500 SaO2% (BldA) [Mass fraction] 98 % Jennifer Duran Other [email or web address] Other 04-21-2021 16:20-0500 Systolic blood pressure 124 mm[Hg] Jennifer Duran Other [email or web address] Other Encounters Encounter Date Encounter Type Care Provider Facility Start: 04-09-2024 End: 04-10-2024 Salvador Stewart RN [facility] Comment on above: Endometriosis Start: 04-06-2024 End: 04-06-2024 Evaluation and management of inpatient NO PCP NO PCP [facility] Start: 04-05-2024 End: 04-05-2024 Emergency department patient visit NO PCP [facility] PCP [facility] Start: 04-03-2024 End: 04-03-2024 Admission to [facility] Phone Call Provider 2 [facility] Start: 04-03-2024 End: 04-03-2024 Evaluation and management of inpatient NO PCP NO PCP [facility] Start: 03-30-2024 Patient encounter status Adiel Aparicio MD Work Phone: [facility] Start: 03-28-2024 End: 03-28-2024 Office outpatient visit 40 minutes Adiel Aparicio MD Work Phone: [facility] Comment on above: Endometriosis (Prima ry Dx); Preop testing Start: 03-28-2024 End: 03-28-2024 Patient encounter status Adiel Aparicio MD Work Phone: [facility] Start: 03-28-2024 Encounter for other preprocedural examination ADIEL APARICIO [facility] Start: 03-28-2024 End: 03-28-2024 Orders Only Adiel Aparicio MD Work Phone: [facility] Comment on above: Endometriosis (Prima ry Dx); Preop testing Start: 03-23-2024 End: 03-23-2024 ambulatory [facility] Work Phone: Start: 03-23-2024 End: 03-23-2024 Patient encounter procedure [facility] [place] Work Phone: Start: 03-07-2024 End: 03-07-2024 Emergency department patient visit NO PCP NO PCP [facility] Start: 03-03-2024 End: 03-03-2024 Emergency department patient visit Davi Rivas DO Work Phone: [facility] Start: 02-24-2024 End: 02-24-2024 Emergency department patient visit Denton Delcid MD Work Phone: [facility] Start: 02-16-2024 End: 02-16-2024 Emergency department patient visit Jennifer Moore MD Work Phone: [facility] Start: 02-13-2024 End: 02-13-2024 Emergency department patient visit Ritesh Heath [facility] Start: 01-27-2024 End: 01-28-2024 Emergency department patient visit GUSTAVO DAVIES [facility] Start: 01-27-2024 End: 01-27-2024 Emergency department patient visit NO PCP NO PCP [facility] Start: 01-22-2024 End: 01-22-2024 Emergency department patient visit Eren Camejo DO Work Phone: [facility] ED Comment on above: Cyst of left ovary ( Primary Dx) Start: 01-19-2024 End: 01-19-2024 ambulatory DO Jennifer Duran Work Phone: [facility] Work Phone: Start: 01-19-2024 End: 01-19-2024 Patient encounter procedure DO Jennifer Duran Work Phone: [facility] [place] Work Phone: Start: 12-07-2023 ambulatory DO Jennifer roberts Work Phone: [facility] Work Phone: Start: 12-07-2023 Non-patient / Non-visit DO Ponce Duran Work Phone: [facility] Work Phone: Start: 11-25-2023 End: 11-25-2023 Patient encounter procedure DO Jennifer Duran Work Phone: [facility] [place] Work Phone: Start: 11-25-2023 End: 11-25-2023 ambulatory DO Jennifer Duran Work Phone: [facility] Work Phone: Start: 11-23-2023 End: 11-23-2023 ambulatory [facility] Start: 11-09-2023 End: 11-09-2023 ambulatory [facility] Start: 11-08-2023 End: 11-08-2023 Emergency department patient visit DO Jennifer Duran Work Phone: [facility]-Emergency Room Work Phone: Start: 11-08-2023 End: 11-08-2023 Emergency department patient visit Eren Mireles Emely DO Work Phone: [facility] ED Comment on above: Toothache (Primary D x) Start: 10-25-2023 End: 10-26-2023 Emergency department patient visit ELBERTON Dottie [facility] Start: 10-25-2023 End: 10-26-2023 Emergency department patient visit TARIK D [facility] Start: 10-25-2023 End: 10-25-2023 Emergency department patient visit NO PCP NO PCP [facility] Start: 10-25-2023 End: 10-26-2023 Emergency department patient visit TARIK MAYER [facility] Start: 10-19-2023 End: 10-19-2023 ambulatory TARUN BRADEN Not Available Start: 10-18-2023 End: 10-18-2023 ambulatory [facility] Work Phone: Start: 10-18-2023 End: 10-18-2023 Patient encounter procedure [facility] [place] Work Phone: Start: 09-29-2023 End: 09-30-2023 Emergency department patient visit Ritesh Heath [facility] Start: 09-26-2023 End: 09-26-2023 Emergency department patient visit Konstantin Warde [facility] Start: 09-06-2023 End: 09-06-2023 Emergency department patient visit DESTINI [facility] Start: 07-31-2023 End: 07-31-2023 Emergency department patient visit Jignesh Dumont [facility] Start: 07-28-2023 End: 07-28-2023 ambulatory PHYSICIAN NO [facility] Work Phone: Start: 07-28-2023 End: 07-28-2023 Patient encounter procedure PHYSICIAN NO [facility] [place] Work Phone: Start: 07-19-2023 End: 07-19-2023 ambulatory Jennifer Duran Other [email or web address] Other Start: 07-19-2023 Telephone encounter Jennifer Duran [facility] [place] Start: 06-22-2023 End: 06-23-2023 Emergency department patient visit EVGENY SEN MD Facility:[facility] Start: 06-07-2023 End: 06-07-2023 ambulatory Jennifer Duran Other [email or web address] Other Start: 06-07-2023 Telephone encounter Jennifer Duran [facility] [place] Start: 05-30-2023 End: 05-30-2023 Emergency department patient visit JACY Leos LES [facility] Start: 05-17-2023 End: 05-18-2023 Emergency department patient visit Ritesh SEbenezer Heath Facility:[facility] Start: 05-16-2023 End: 05-16-2023 ambulatory Jennifer Duran Other [employer] Other Start: 05-16-2023 Telephone encounter Jennifer Duran [facility] [place] Start: 04-30-2023 End: 04-30-2023 Emergency department patient visit DO Jennifer Duran Work Phone: [facility] Work Phone: Start: 04-24-2023 End: 04-24-2023 Emergency department patient visit Jignesh Dumont [facility] Start: 04-18-2023 End: 04-18-2023 ambulatory Jennifer Duran Other [employer] Other Start: 04-18-2023 Telephone encounter Jennifer Duran [facility] [place] Start: 04-11-2023 End: 04-11-2023 ambulatory Jennifer Duran Other [employer] Other Start: 04-11-2023 Telephone encounter Jennifer Duran [facility] [place] Start: 04-04-2023 End: 04-04-2023 ambulatory Jennifer Duran Other [employer] Other Start: 04-04-2023 Telephone encounter Jennifer Duran [facility] [place] Start: 04-02-2023 End: 04-03-2023 Emergency department patient visit DO Jennifer Duran Work Phone: [facility] Work Phone: Start: 04-01-2023 End: 04-01-2023 ambulatory Jennifer Duran Other [employer] Other Start: 04-01-2023 Telephone encounter Jennifer Enochivelisse [facility] [place] Start: 03-29-2023 Telephone encounter Jennifer Duran [facility] [place] Start: 03-29-2023 End: 03-29-2023 Evaluation and management of inpatient DO Jennifer Duran Work Phone: [facility] [place] [facility] Work Phone: Start: 03-29-2023 End: 03-29-2023 observation encounter DO Jennifer Duran Work Phone: [facility] Work Phone: Start: 03-29-2023 End: 03-29-2023 ambulatory Jennifer Duran [employer] Other Start: 03-13-2023 End: 03-13-2023 ambulatory DO Jennifer Duran Work Phone: [facility] Work Phone: Start: 03-13-2023 End: 03-13-2023 Patient encounter procedure DO Jennifer Duran Work Phone: [facility]-Flu Vaccine Start: 03-02-2023 End: 03-02-2023 ambulatory Jennifer Duran Other [employer] Other Start: 03-02-2023 Telephone encounter Jennifer Duran [facility] [place] Start: 02-05-2023 End: 02-06-2023 Emergency department patient visit DO Jennifer Duran Work Phone: [facility] Work Phone: Start: 01-12-2023 End: 01-12-2023 ambulatory Jennifer Duran Other [employer] Other Start: 01-12-2023 Office outpatient vi sit 15 minutes Jennifer Duran [facility] [place] Start: 12-09-2022 End: 12-09-2022 ambulatory Jennifer Duran Other [employer] Other Start: 12-09-2022 Telephone encounter Jennifer Duran [facility] [place] Start: 10-11-2022 End: 10-11-2022 ambulatory Jennifer Duran Other [employer] Other Start: 10-11-2022 Telephone encounter Jennifer Duran [facility] [place] Start: 09-22-2022 End: 09-22-2022 ambulatory Jennifer Duran Other [employer] Other Start: 09-22-2022 Telephone encounter Jennifer Duran [facility] [place] Start: 07-28-2022 End: 07-28-2022 ambulatory BELKIS SANDOVAL Facility: Start: 07-12-2022 End: 07-12-2022 ambulatory Jennifer Duran Other [employer] Other Start: 07-12-2022 Office outpatient vi sit 15 minutes Jennifer Duran [facility] [place] Start: 07-12-2022 Telephone encounter Jennifer Duran [facility] [place] Start: 06-02-2022 End: 06-02-2022 ambulatory Jennifer Duran Other [employer] Other Start: 06-02-2022 Telephone encounter Jennifer Duran [facility] [place] Start: 05-04-2022 End: 05-04-2022 ambulatory Jennifer Duran Other [employer] Other Start: 05-04-2022 Telephone encounter Jennifer Duran [facility] [place] Start: 04-30-2022 Telephone encounter Gil arechiga APRN.ELIGIBILITY MANAGER Work Phone: Hematology/Oncology Comment on above: Lab Orders Start: 04-28-2022 Evaluation and management of inpatient DO Jennifer Duran Work Phone: [facility] [place] Start: 04-28-2022 observation encounter DO Jennifer Duran Work Phone: [facility] Work Phone: Start: 04-12-2022 End: 04-12-2022 ambulatory Jennifer Duran Other [employer] Other Start: 04-12-2022 Office outpatient vi sit 15 minutes Jennifer Duran [facility] [place] Start: 04-12-2022 Telephone encounter Jennifer Roger [facility] Start: 04-09-2022 End: 04-10-2022 ambulatory Stephenie Suh 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 Comment on above: Art Therapy Iron deficiency anem ia due to chronic blood loss (Primary Dx); Malabsorption of iron; Cyst of left ovary Start: 03-26-2022 End: 03-27-2022 ambulatory GIL NI Facility:[facility] Start: 03-26-2022 End: 03-26-2022 ambulatory Chair Anton España Work Phone: Hematology/Oncology Comment on above: Iron deficiency anem ia due to chronic blood loss (Primary Dx); Malabsorption of iron; Cyst of left ovary Start: 03-15-2022 Telephone encounter Sharon HAMMERW H ematology/Oncology Comment on above: Social Work Services Start: 03-10-2022 End: 03-11-2022 ambulatory Gil Ni APRN.ELIGIBILITY MANAGER Work Phone: Hematology/Oncology Comment on above: Iron deficiency anem ia due to chronic blood loss (Primary Dx); Malabsorption of iron Start: 03-10-2022 End: 03-10-2022 Patient encounter procedure Gil Ni APRN.ELIGIBILITY MANAGER Work Phone: [facility] Start: 02-18-2022 Telephone encounter Gil arechiga APRN.ELIGIBILITY MANAGER Work Phone: Hematology/Oncology Comment on above: Lab Orders Start: 02-16-2022 End: 02-16-2022 ambulatory Jennifer Duran Other [employer] Other Start: 02-16-2022 Telephone encounter Jennifer Duran [facility] [place] Start: 02-12-2022 End: 02-12-2022 Patient encounter procedure DO Jennifer Duran Work Phone: [facility] [place] Start: 01-07-2022 End: 01-07-2022 ambulatory Jennifer Duran Other [employer] Other Start: 01-07-2022 Telephone encounter Jennifer Duran [facility] [place] Start: 12-04-2021 End: 12-04-2021 Patient encounter procedure Yamilka Lorenzo [facility] Start: 10-29-2021 End: 10-29-2021 ambulatory Jennifer Duran Other [employer] Other Start: 10-29-2021 Telephone encounter Jennifer Duran [facility] [place] Start: 10-16-2021 End: 10-16-2021 ambulatory Jennifer Duran Other [employer] Other Start: 10-16-2021 Office outpatient vi sit 15 minutes Jennifer Duran [facility] [place] Start: 09-21-2021 End: 09-21-2021 ambulatory Jennifer Duran Other [employer] Other Start: 09-21-2021 Telephone encounter Jennifer Duran [facility] [place] Start: 09-14-2021 End: 09-14-2021 Emergency department patient visit DO Jennifer Duran Work Phone: [facility] Start: 08-18-2021 End: 08-18-2021 ambulatory Jennifer Duran Other [employer] Other Start: 08-18-2021 Telephone encounter Jennifer Duran [facility] [place] Start: 08-11-2021 End: 08-11-2021 ambulatory Jennifer Duran Other [employer] Other Start: 08-11-2021 Telephone encounter Jennifer Duran [facility] [place] Start: 08-03-2021 End: 08-03-2021 ambulatory Jennifer Duran Other [employer] Other Start: 08-03-2021 Telephone encounter Jennifer Duran [facility] Start: 07-04-2021 End: 07-04-2021 Patient encounter procedure DO Jennifer Duran Work Phone: [facility] [place] Start: 06-04-2021 End: 06-04-2021 ambulatory Jennifer Kendallivelisse Other [employer] Other Start: 06-04-2021 Telephone encounter Jennifer Duran [facility] Start: 05-18-2021 End: 05-18-2021 ambulatory Jennifer Roger Other [employer] Other Start: 05-18-2021 Telephone encounter Jennifer Roger [facility] Start: 04-21-2021 End: 04-21-2021 ambulatory Jennifer Duran Other [employer] Other Start: 04-21-2021 Encounter for genera l adult medical examination without abnormal findings Jennifer Duran [facility] [place] Start: 04-21-2021 Periodic preventive med est patient 18-39 yrs Jennifer Duran [facility] Procedures Date Procedure Procedure Detail [...] Phone: Start: 04-30-2023 Pelvic echography DO Da vidottie Duran Work Phone: Start: 04-30-2023 Transvaginal echography DO Jennifer Duran Work Phone: Start: 03-29-2023 Computed tomography of abdomen and pelvis with contrast DO Jennifer Duran Work Phone: Start: 03-29-2023 Transvaginal echography DO Jennifer Duran Work Phone: Start: 03-29-2023 Pelvic echography DO Da vid Roger Work Phone: Start: 02-06-2023 Pelvic echography DO Da vid Girivelisse Work Phone: Start: 02-06-2023 Transvaginal echography DO [...] Treatment Date Care Activity Detail Author Start: 04-06-2025 Adult BMI Screening Adult BMI Screen ing [facility] Start: 04-06-2025 Tobacco Screening Tobacco Screening [facility] Start: 04-03-2025 Adult BMI Screening Adult BMI Screen ing [facility] Start: 04-03-2025 Tobacco Screening Tobacco Screening [facility] Start: 03-28-2025 Adult BMI Screening Adult BMI Screen ing [facility] Start: 03-07-2025 Adult BMI Screening Adult BMI Screen ing [facility] Start: 03-07-2025 Tobacco Screening Tobacco Screening [facility] Start: 11-25-2024 Screening for malign ant neoplasm of cervix Pap Smear [facility] Start: 04-20-2024 End: 04-20-2024 Patient encounter procedure 04/20/2024 1:30 PM EST Office Visit [facility] [address] [place] [address] Shanae Frankel PA [address] [place] [address] [facility] Start: 04-06-2024 End: 04-06-2024 Admission to same day surgery center [facility] - Surgery Comment on above: DAVINCI HYSTERECTOMY SALPINGECTOMY DAVINCI DV5 SALPINGO OOPHORECTOMY Start: 04-06-2024 End: 04-06-2024 DAVINCI DV5 SALPINGO OOPHORECTOMY DAVINCI DV5 SALPINGO OOPHORECTOMY endometriosis /pelvic pain 04/06/2024 11:00 AM EDT [facility] Start: 04-06-2024 End: 04-06-2024 DAVINCI HYSTERECTOMY SALPINGECTOMY DAVINCI HYSTERECTOMY SALPINGECTOMY endometriosis /pelvic pain 04/06/2024 11:00 AM EDT [facility] Start: 04-06-2024 End: 04-06-2024 Laparoscopy w/rmvl adnexal structures [facility] Start: 04-06-2024 Subsequent hospital visit by physician 04/06/2024 11:00 AM EDT Hospital Encounter [facility] Surgery [address] [place] [id number] [place] [address] [place] [address], [address] [place] [address] [facility] Surgery Start: 04-03-2024 End: 04-03-2024 Admission to establishment 04/03/2024 3:45 PM EDT Support Visit [facility] On [address] [address] [facility] On [facility] Start: 02-12-2024 COVID-19 VACCINE ( season) COVID-19 VACCINE ( season) [facility] Start: 02-12-2024 COVID-19 Vaccine ( season) COVID-19 Vaccine ( season) [facility] Start: 02-12-2024 Influenza vaccination A [facility] Start: 01-12-2024 Influenza vaccination Flu vaccine (# 1) [facility] Start: 12-07-2023 Patient referral [facility] Work Phone: Start: 03-30-2023 Comprehensive metabo lic 2000 panel - Serum or Plasma [facility] Start: 03-30-2023 [facility] Start: 03-29-2023 [facility] Start: 03-29-2023 Referral to architect internship [facility] Start: 03-29-2023 Hospital admission [facility] Start: 03-29-2023 [facility] Start: 03-29-2023 Computed tomography of abdomen and pelvis with contrast CT abdomen pelvis w con [facility] Start: 03-29-2023 CT Abdomen and Pelvi s W contrast IV [facility] Start: 03-29-2023 Transvaginal echography US transvagi nal [facility] Start: 03-29-2023 US Pelvis transvaginal [facility] Start: 03-29-2023 Pelvic echography US pelvic complete [facility] Start: 03-29-2023 US Pelvis [facility] Start: 02-11-2023 COVID-19 Vaccine () COVID-19 Vaccine () [facility] Start: 02-06-2023 Pelvic echography US pelvic complete [facility] Start: 02-06-2023 US Pelvis [facility] Start: 02-06-2023 Transvaginal echography US transvagi [facility] Start: 02-06-2023 US Pelvis transvaginal [facility] Start: 02-05-2023 Computed tomography of abdomen and pelvis with contrast CT abdomen pelvis w con [facility] Start: 02-05-2023 CT Abdomen and Pelvi s W contrast IV [facility] Start: 05-05-2022 End: 07-05-2022 CBC W Auto Differential panel - Blood CBC + DIFF Lab Routine Iron deficiency anemia due to chronic blood loss Malabsorption of iron Expected: 05/05/2022, Expires: 07/05/2022 [facility] Work Phone: Comment on above: Expected: 05/05/2022 , Expires: 07/05/2022 Start: 05-03-2022 End: 07-03-2022 Comprehensive metabolic 2000 panel - Serum or Plasma COMP METABOLIC PANEL Lab Routine Iron deficiency anemia due to chronic blood loss Expected: 05/03/2022, Expires: 07/03/2022 [facility] Work Phone: Comment on above: Expected: 05/03/2022 , Expires: 07/03/2022 Start: 04-28-2022 Pelvic echography US pelvic complete [facility] Start: 04-28-2022 US Pelvis [facility] Start: 04-28-2022 CT Abdomen and Pelvi s WO contrast [facility] Start: 04-28-2022 CT of abdomen and pe lvis without contrast CT abdomen pelvis wo con [facility] Start: 04-28-2022 Transvaginal echography US transvagi nal [facility] Start: 04-28-2022 US Pelvis transvaginal [facility] Start: 02-23-2022 End: 02-20-2023 CBC W Auto Differential panel - Blood CBC + DIFF Lab Routine Iron deficiency anemia due to chronic blood loss Expected: 02/23/2022 (Approximate), Expires: 02/20/2023 [facility] Work Phone: Comment on above: Expected: 02/23/2022 (Approximate), Expires: 02/20/2023 Start: 02-23-2022 End: 02-20-2023 Cobalamin (Vitamin B12) [Mass/volume] in Serum or Plasma VITAMIN B12 BLOOD Lab Routine Iron deficiency anemia due to chronic blood loss Expected: 02/23/2022 (Approximate), Expires: 02/20/2023 [facility] Work Phone: Comment on above: Expected: 02/23/2022 (Approximate), Expires: 02/20/2023 Start: 02-23-2022 End: 02-20-2023 Comprehensive metabolic 2000 panel - Serum or Plasma COMP METABOLIC PANEL Lab Routine Iron deficiency anemia due to chronic blood loss Expected: 02/23/2022 (Approximate), Expires: 02/20/2023 [facility] Work Phone: Comment on above: Expected: 02/23/2022 (Approximate), Expires: 02/20/2023 Start: 02-23-2022 End: 02-20-2023 Ferritin [Mass/volume] in Serum or Plasma FERRITIN BLD Lab Routine Iron deficiency anemia due to chronic blood loss Expected: 02/23/2022 (Approximate), Expires: 02/20/2023 [facility] Work Phone: Comment on above: Expected: 02/23/2022 (Approximate), Expires: 02/20/2023 Start: 02-23-2022 End: 02-20-2023 Folate [Mass/volume] in Serum or Plasma FOLATE SERUM Lab Routine Iron deficiency anemia due to chronic blood loss Expected: 02/23/2022 (Approximate), Expires: 02/20/2023 [facility] Work Phone: Comment on above: Expected: 02/23/2022 (Approximate), Expires: 02/20/2023 Start: 02-23-2022 End: 02-20-2023 Iron and Iron binding capacity panel - Serum or Plasma IRON + TIBC Lab Routine Iron deficiency anemia due to chronic blood loss Expected: 02/23/2022 (Approximate), Expires: 02/20/2023 [facility] Work Phone: Comment on above: Expected: 02/23/2022 (Approximate), Expires: 02/20/2023 Start: 02-11-2022 Influenza vaccination INFLUENZA (#1) [facility] Start: 06-13-2021 DEPRESSION ASSESSMENT DEPRESSION ASS ESSMENT [facility] Start: 11-30-2020 COVID-19 VACCINE (3 - Booster for Moderna series) COVID-19 VACCINE (3 - Booster for Moderna series) [facility] Start: 08-27-2020 COVID-19 VACCINE (3 - Booster for Moderna series) COVID-19 VACCINE (3 - Booster for Moderna series) [facility] Start: 2017 HPV TESTING HPV TESTING [facility] Start: 2017 Screening for malign ant neoplasm of cervix [facility] Start: 01-11-2008 PAP TESTING PAP TESTING [facility] Start: 01-11-2008 Screening for malign ant neoplasm of cervix [facility] Start: 2006 DTaP,Tdap and Td Vaccines (1 - Tdap) DTaP,Tdap and Td Vaccines (1 - Tdap) [facility] Start: 2006 DTaP/Tdap/Td vaccine (1 - Tdap) DTaP/Tdap/Td vaccine (1 - Tdap) [facility] Start: 2006 Hepatitis B vaccination HEP B VACCINE (1 of 3 - 19+ 3-dose series) [facility] Start: 2006 Hepatitis B vaccine (1 of 3 - 19+ 3-dose series) Hepatitis B vaccine (1 of 3 - 19+ 3-dose series) [facility] Start: 2006 Third diphtheria, tetanus and acellular pertussis (DTaP) vaccination TDAP (ADULT) [facility] Start: 2006 Urine microalbumin profile DTAP,TDAP,TD (1 - Tdap) [facility] Start: 2005 Adult BMI Follow Up Plan Adult BMI Follow Up Plan [facility] Start: 2005 HEPATITIS C SCREENING HEPATITIS C SC REENING [facility] Start: 2005 Hepatitis C screening Hepatitis C sc reen [facility] Start: 2005 HIV SCREENING HIV SCREENING [facility] Start: 2002 HIV screening [facility] Start: 01-11-2000 Varicella vaccine (1 of 2 - 13+ 2-dose series) Varicella vaccine (1 of 2 - 13+ 2-dose series) [facility] Start: 1999 Adult depression screening assessment DEPRESSION SCREENING [facility] Start: 1999 Depression Screen Depression Screen [facility] Start: 01-11-1988 Varicella vaccine (1 of 2 - 2-dose childhood series) Varicella vaccine (1 of 2 - 2-dose childhood series) [facility] Start: 1987 HEPATITIS B (1 of 3 - 3-dose series) HEPATITIS B (1 of 3 - 3-dose series) [facility] Start: 1987 Hepatitis B vaccine (1 of 3 - 3-dose series) Hepatitis B vaccine (1 of 3 - 3-dose series) [facility] Start: 1987 Hepatitis C screening HEPATITI S C VIRUS SCREENING [facility] Start: 1987 Tetanus vaccination TETANUS [facility] CT Sinuses WO contrast [facility] Patient Education [facility] Work Phone: Patient referral [facility] Work Phone: End: 02-16-2024 Standard ECG ECG ECG STAT One Time for 1 Occurrences starting 02/16/2024 until 02/16/2024 [facility] Comment on above: One Time for 1 Occur rences starting 02/16/2024 until 02/16/2024 End: 03-28-2025 Type and screen(includes indirect saw) Type and screen(includes indirect saw) Blood Bank Routine Endometriosis Preop testing 1 Occurrences starting 03/28/2024 until 03/28/2025 [facility] Work Phone: Comment on above: 1 Occurrences starti ng 03/28/2024 until 03/28/2025 [facility] Immunizations Immunization Date Immunization Notes Care Provider Fa cili 06-09-2023 influenza, injectable, quadrivalent, contains preservative [facility] 06-09-2023 influenza virus vaccine, unspecified formulation Jennifer Moore MD Work Phone: [facility] 03-13-2023 influenza, injectable, quadrivalent, preservative free Jennifer Duran Other [facility] 03-31-2021 influenza, seasonal, injectable Jennifer Duran Other [facility] 07-02-2020 COVID-19 Vaccine Moderna - Documentation Purposes Only Jennifer Duran Other [facility] 06-04-2020 COVID-19 Vaccine Moderna - Documentation Purposes Only Jennifer Duran Other [facility] 12-10-2008 measles, mumps and rubella virus vaccine [facility] NEGATED: Highlighted row has not occurred!03-23-2019 influenza, seasonal, injectable Patient Objection Jennifer Duran Other [facility] Payers Date Payer Category Payer Self-pay [id number] 2020 [facility] Managed Care - Other [facility] [id number] 2018 Unknown [id number]. 1.13.159. 2.7.3.678162.315 1987 Unknown [id number] 2.16.840.1.398552.3.579. 2.593 1987 Unknown [id number] 2.16.840.1.643473.3.579. 2.182 1987 Unknown [id number] 2.16.840.1.223129.3.579. 2.1259 1987 Unknown [id number] 2.16.840.1.553968.3.579. 2.174 1987 Unknown [id number] 2.16.840.1.064103.3.579. 2.174 1987 Unknown [id number] 2.16.840.1.888793.3.579. 2.174 1987 Unknown [id number] 2.16.840.1.402707.3.579. 2.727 1987 Unknown [id number] 2.16.840.1.875299.3.579. 2.727 1987 Unknown [id number] 2.16.840.1.040554.3.579. 2.727 1987 Unknown [id number] 2.16.840.1.781383.3.579. 2.727 1987 Unknown [id number] 2.16.840.1.213485.3.579. 2.727 1987 Unknown [id number] 2.16840.1.726149.3.579. 2.727 1987 Unknown [id number] 2.16.840.1.783246.3.579. 2.983 1987 Unknown [id number] 2.16840.1.395393.3.579. 2.3 1987 Unknown [id number] 2.16840.1.988900.3.579. 2.3 1987 Unknown [id number] 2.840.1.213074.3.579. 2.1285 1987 Unknown [id number] 2.840.1.452468.3.579. 2.1285 1987 Unknown [id number] 07.29.830.1.255814.3.579. 2.1285 1987 Unknown [id number] 2.840.1.698714.3.579. 2.1285 1987 Unknown [id number] 840.1.807729.3.579. 2.1285 1987 Unknown [id number] 2.840.1.626072.3.579. 2.1285 1987 Unknown [id number] 07.29.830.1.720120.3.579. 2.1285 1987 Unknown [id number] 2.840.1.544268.3.579. 2.1285 1987 Unknown [id number] 2.840.1.443983.3.579. 2.1285 1987 Unknown [id number] 2.840.1.568578.3.579. 2.1285 1987 Unknown [id number] 2.840.1.133237.3.579. 2.1285 1987 Unknown [id number] 840.1.208295.3.579. 2.1286 1987 Unknown [id number] 2.16840.1.100764.3.579. 2.1286 1987 Unknown [id number] 2.16840.1.338691.3.579. 2.1286 1987 Unknown [id number] 2.840.1.043043.3.579. 2.1286 1987 Unknown [id number] 2.16840.1.214692.3.579. 2.1286 1959 Unknown [id number] Unknown [id number] Unknown [id number] Unknown [id number] Unknown [id number] 2.840.1.595151.3.579. 2.531 Unknown [id number] 2.840.1.414316.3.579. 2.531 Unknown [id number] 2.840.1.300948.3.579. 2.531 Unknown [id number] 2.840.1.428996.3.579. 2.531 Unknown [id number] 2.840.1.283741.3.579. 2.531 Social History Date Type Detail Facility Start: 09-14-2021 End: 05-25-2023 Tobacco smoking status UTIS Never smoked tobacco (finding) [facility] Start: 1985 Sex Assigned At Female [facility] Tobacco smoking status Never [facility] Start: 05-30-2023 End: 04-05-2024 Sex Assigned At Female [facility] Other Start: 04-05-2018 End: 05-25-2023 Tobacco use and exposure Smokeless tobacco non-user [facility] Start: 10-27-2020 End: 04-06-2024 Alcohol intake Current drinker of alcohol (finding) [facility] Start: 04-05-2018 End: 05-25-2023 History SDOH Alcohol Comment socially [facility] Start: 1985 Sex Assigned At Not on file [facility] Start: 02-06-2022 End: 04-09-2022 Exposure to SARS-CoV-2 (event) Not sure [facility] History of tobacco use Passive smoker [facility] Start: 09-05-2023 End: 01-22-2024 Alcohol intake Not Asked [facility] Start: 05-30-2023 End: 04-05-2024 History of Social function [employer] [facility] How often to you hav e a drink containing alcohol? Monthly or less [employer] [facility] How many standard drinks containing alcohol do you have on a typical day? 1 or 2 [employer] [facility] How often do you hav e 6 or more drinks on 1 occasion? Less than monthly [email or web address] [facility] Start: 05-30-2023 Alcohol Comment social [employer] [facility] Tobacco smoking stat [facility] Tobacco smoking consumption [facility] Start: 01-14-2015 Sex Female (finding) [facility] Start: 04-03-2024 Alcohol Comment monthly [facility] Goals Date Patient Goal Desired Activity /State Functional Status Date Assessment Result Facility 02-13-2024 Functional Status N/A [facility] 09-29-2023 Functional Status N/A [facility] 09-26-2023 Functional Status N/A [facility] 07-31-2023 Functional Status N/A [facility] 04-24-2023 Functional Status N/A [facility] 03-29-2023 Functional status Patient at Baseline [facility] Work Phone: 12-04-2021 Functional Status N/A [facility] Mental Status Date Assessment Result Facility 03-29-2023 Cognitive function Cognitive Sta tus Patient at Baseline [facility] Work Phone: Clinical Notes 03-19-2019 to 04-09-2024 Telephone Encounter - Nunu Stewart RN - 04/09/2024 4:47 PM EDTTelephone Encounter - Nunu Stewart RN - 04/09/2024 4:47 PM EDTPre-Procedure Instructions - Lucy Dennison RN - 04/03/2024 3:45 PM EDT Note Date & Type Note Facility 04-09-2024 Miscellaneous Notes Patient left VM on Rx refill line requesting 1-2 day supply refill on oxycodone. Patient had hysterectomy on Friday 04/06 and states she is still experiencing slight pain. documented in this encounter [facility] 04-09-2024 Telephone encounter Note Patient left VM on Rx refill line requesting 1-2 day supply refill on oxycodone. Patient had hysterectomy on Friday 04/06 and states she is still experiencing slight pain. [facility] 04-03-2024 Instructions Formatting of th is note might be different from the original. Your surgery/procedure is scheduled at [facility] on 04/06 at 1100 Arrival Time 0900 [facility] Address: [address] [place] [address] Park in [address] Parking lot located on [facility]. Report to the Entrance B. Check in at the information desk the surgery. The waiting room located on the second floor. If you have any questions prior to surgery, please call Pre-Admission Clinic at [phone] between 7:30 am and 4:30 pm Tuesday through Tuesday. If you have questions the morning of surgery, please call the Pre-op Department at [phone]. Notify your SURGEON if you develop any [...] piercings ,hair extensions that contain metal, nail norwegian, make-up, and contact lens. You may brush [...] RIGHTS AND RESPONSIBILITIES As a patient at [facility], you have the right to: Receive medical care and be informed of who is taking care of you Be treated with dignity and respect Have a family member/housing management representative of choice and your physician notified of your admission Receive information and actively participate in decisions about your care and treatment Refuse care, treatment and services Decide who may provide your support and speak for you Access gnosticist and spiritual services Participate in ethical issues [...] of hospital charges and payment methods Patient/patient housing management representative responsibilities are to: Provide information about health status to facilitate care, treatment and services Follow the treatment, plan, keep appointments and speak up when you do not understand the plan Respect the rights of other patients and healthcare personnel Follow organizational rules and regulations that support quality care and a safe environment Fulfill financial obligations as promptly as possible [facility] 04-03-2024 Miscellaneous Notes Your surgery/procedure is scheduled at [facility] on 04/06 at 1100 Arrival Time 0900 [facility] Address: [address] [place] [address] in [address]1 Parking lot located on [facility]. Report to the Entrance B. Check in at the information desk the surgery. The waiting room located on the second floor. If you have any questions prior to surgery, please call Pre-Admission Clinic at [phone] between 7:30 am and 4:30 pm Tuesday through Tuesday. If you have questions the morning of surgery, please call the Pre-op Department at [phone]. Notify your SURGEON if you develop any [...] piercings ,hair extensions that contain metal, nail norwegian, make-up, and contact lens. You may brush [...] RIGHTS AND RESPONSIBILITIES As a patient at [facility], you have the right to: Receive medical care and be informed of who is taking care of you Be treated with dignity and respect Have a family member/housing management representative of choice and your physician notified of your admission Receive information and actively participate in decisions about your care and treatment Refuse care, treatment and services Decide who may provide your support and speak for you Access gnosticist and spiritual services Participate in ethical issues [...] of hospital charges and payment methods Patient/patient housing management representative responsibilities are to: Provide information about [...] promptly as possible documented in this encounter [facility] 03-28-2024 History of Presen t illness Narrative Subjective: [...] procedures Referring and communicating with other health customer care assistant (not separately reported) Documenting clinical information in the electronic or other health record Adiel Aparicio MD documented in this encounter [facility] 03-03-2024 Emergency department Note Emergency Department Report [facility] EMERGENCY MEDICINE Service Date:.03/03/24 PCP: No [...] for months. Patient states she has seen [facility] specialist in [place], Dr. Herrs, to have her uterus/hysterectomy secondary to endometriosis. Patient says that she then between PCPs at this point. Patient does have a OBGYN in [facility], Dr. Berrios. Patient states she is not [...] by Nasal route once for 1 dose. Maurepas into the nose as directed. Call 911. [...] Insecurity: No Food Insecurity (01/27/2024) Received from [facility] Hunger Screening Within the past 12 months [...] file Social Connections: Unknown (03/22/2023) Received from [facility] Family and Community Support Help with Day-to-Day Activities: Not on file Lonely or Isolated: Not on file Intimate Partner Violence: Unknown (03/22/2023) Received from [facility] Abuse Screen Unsafe at Home or Work/School: Not on file Feels Threatened by Someone?: Not on file Does Anyone Keep You from Contacting Others or Doint Things Outside the Home?: Not on file Physical Sign of Abuse Present: Not on file Housing Stability: Unknown (03/22/2023) Received from [facility] Housing Stability Current Living Arrangements: Not on [...] to palpation. GI: Soft, patient does have alii-kb-yruanwei tenderness to palpation over lower quadrant, no [...] Orders Placed This Encounter AMB REFERRAL TO OB-CLIENT EXPERIENCE ADMINISTRATOR AMB REFERRAL TO CHRONIC PAIN CLINIC hydroCODone-acetaminophen [...] YELLOW YELLOW APPEARANCE, URINE CLEAR CLEAR Specific [place], Urine 1.010 1.010 - 1.025 PH URINE [...] have definitive treatment from Dr. Aparicio's in [place] for her endometriosis and hysterectomy which patient [...] patient with above information. . . Davi Rivas DO 03/03/24 1706 Discharge instructions reviewed and given to pt. Verbalizes understanding and denies questions/concerns. Pt instructed to follow-up w/ OB and pain clinic. Pt informs this RN her grandmother is at ED to transport her home. grandmother is here to pick her up from ED. RR wnl. Pt ambulatory out of ED w/ steady gait documented in this encounter [facility] 03-03-2024 Physician Emergency department Note Emergency Department Report [facility] EM[facility]GENCY MEDICINE Service Date:.03/03/24 PCP: No [...] for months. Patient states she has seen [facility] specialist in [place], Dr. Mendoza, to have her uterus/hysterectomy secondary to endometriosis. Patient says that she then between PCPs at this point. Patient does have a OBGYN in [facility], Dr. Berrios. Patient states she is not [...] by Nasal route once for 1 dose. Maurepas into the nose as directed. Call 911. [...] Insecurity: No Food Insecurity (01/27/2024) [facility] Within the past 12 months [...] file Social Connections: Unknown (03/22/2023) Received from [facility] Family and Community Support Help with Day-to-Day Activities: Not on file Lonely or Isolated: Not on file Intimate Partner Violence: Unknown (03/22/2023) Received from [facility] Abuse Screen Unsafe at Home or Work/School: Not on file Feels Threatened by Someone?: Not on file Does Anyone Keep You from Contacting Others or Doint Things Outside the Home?: Not on file Physical Sign of Abuse Present: Not on file Housing Stability: Unknown (03/22/2023) Received from [facility] Housing Stability Current Living Arrangements: Not on [...] to palpation. GI: Soft, patient does have lyps-qu-aijzfqxy tenderness to palpation over lower quadrant, no [...] Orders Placed This Encounter AMB REFERRAL TO OB-CLIENT EXPERIENCE ADMINISTRATOR AMB REFERRAL TO CHRONIC PAIN CLINIC hydroCODone-acetaminophen [...] YELLOW YELLOW APPEARANCE, URINE CLEAR CLEAR Specific [place], Urine 1.010 1.010 - 1.025 PH URINE [...] have definitive treatment from Dr. Aparicio's in [place] for her endometriosis and hysterectomy which patient [...] patient with above information. . . Davi Rivas DO 03/03/24 1706 T [facility] 03-03-2024 Emergency department Note Discharge instructions reviewed and given to pt. Verbalizes understanding and denies questions/concerns. Pt instructed to follow-up w/ OB and pain clinic. Pt informs this RN her grandmother is at ED to transport her home. grandmother is here to pick her up from ED. RR wnl. Pt ambulatory out of ED w/ steady gait [facility] 03-03-2024 Hospital Discharg e instructions Davi Rivas DO - 03/03/2024 4:[address] Wilson, your OBGYN in [place] to see if your appointment may be moved up. Call Dr. Braden in [place] on Tuesday to see if they will [...] you as well. documented in this encounter [facility] 02-24-2024 Emergency department Note Emergency Department Report [facility] EM[facility]GENCY MEDICINE Service Date:.02/25/24 PCP: No [...] has a history of endometriosis. Follows with commanding officer motorized squad in [place]. States she is waiting to be scheduled for a total hysterectomy. Last saw them in November as per records. She explains they just have not scheduled it yet but she is in constant pain. Review of records shows similar presentation at outlying facilities. Is here in [place] helping grandmother pack up to move to [place] with the rest of the family Review [...] by Nasal route once for 1 dose. Maurepas into the nose as directed. Call 911. [...] Insecurity: No Food Insecurity (01/27/2024) Received from [facility] Hunger Screening Within the past 12 months [...] file Social Connections: Unknown (03/22/2023) Received from [facility] Family and Community Support Help with Day-to-Day Activities: Not on file Lonely or Isolated: Not on file Intimate Partner Violence: Unknown (03/22/2023) Received from [facility] Abuse Screen Unsafe at Home or Work/School: Not on file Feels Threatened by Someone?: Not on file Does Anyone Keep You from Contacting Others or Doint Things Outside the Home?: Not on file Physical Sign of Abuse Present: Not on file Housing Stability: Unknown (03/22/2023) Received from [facility] Housing Stability Current Living Arrangements: Not on [...] YELLOW YELLOW APPEARANCE, URINE CLEAR CLEAR Specific [place], Urine 1.010 1.010 - 1.025 PH URINE [...] I offered to contact her physician in [place] and see if I could transfer her [...] like her to call her Doctor in [place] for possible transfer. Pt refuses. Pt states she does not want to be admitted anywhere and states will sign AMA form and call her pcp in the morning. Pt states pain has not improved after dilaudid administration. Dr. Delcid made aware Pt states her grandmother will transport her home if discharged documented in this encounter [facility] 02-24-2024 Physician Emergency department Note Emergency Department Report [facility] EM[facility]GENCY MEDICINE Service Date:.02/25/24 PCP: No [...] has a history of endometriosis. Follows with commanding officer motorized squad in [place]. States she is waiting to be scheduled for a total hysterectomy. Last saw them in November as per records. She explains they just have not scheduled it yet but she is in constant pain. Review of records shows similar presentation at outlying facilities. Is here in [place] helping grandmother pack up to move to [place] with the rest of the family Review [...] by Nasal route once for 1 dose. Maurepas into the nose as directed. Call 911. [...] Insecurity: No Food Insecurity (01/27/2024) Received from [facility] Hunger Screening Within the past 12 months [...] file Social Connections: Unknown (03/22/2023) Received from [facility] Family and Community Support Help with Day-to-Day Activities: Not on file Lonely or Isolated: Not on file Intimate Partner Violence: Unknown (03/22/2023) Received from [facility] Abuse Screen Unsafe at Home or Work/School: Not on file Feels Threatened by Someone?: Not on file Does Anyone Keep You from Contacting Others or Doint Things Outside the Home?: Not on file Physical Sign of Abuse Present: Not on file Housing Stability: Unknown (03/22/2023) Received from [facility] Housing Stability Current Living Arrangements: Not on [...] YELLOW YELLOW APPEARANCE, URINE CLEAR CLEAR Specific [place], Urine 1.010 1.010 - 1.025 PH URINE [...] I offered to contact her physician in [place] and see if I could transfer her [...] information. . Denton Delcid MD 02/25/24 0355 [facility] 02-24-2024 Emergency department Note AMA form signed. Pt aware of risks and refuses hospital admission. Pt states grandmother is at facility to transport her home. Denies further needs at this time. Pt is a&o respirations are even and unlabored. Pt ambulatory out of ED w/ steady gait [facility] 02-24-2024 Emergency department Note This RN and [...] like her to call her Doctor in [place] for possible transfer. Pt refuses. Pt states she does not want to be admitted anywhere and states will sign AMA form and call her pcp in the morning. [facility] 02-24-2024 Emergency department Note Pt states pain has not improved after dilaudid administration. Dr. Delcid made aware [facility] 02-24-2024 Emergency department Note Pt states her grandmother will transport her home if discharged [facility] 02-16-2024 Emergency department Note Discharge instructions provided. Patient verbalized understanding. Denies any questions or concerns prior to discharge. Ambulatory out of ED with Rx X2. [facility] 02-16-2024 Emergency department Note Discharge instructions provided. Patient verbalized understanding. Denies any questions or concerns prior to discharge. Ambulatory out of ED with Rx X2. Patient states that pain is getting worse again. Dr Moore notified. No new orders received at this time. States he is waiting for CT results. Patient updated on plan. Pt taken to CT scan Emergency Department Report [facility] EMERGENCY MEDICINE Service Date:.02/16/24 PCP: No [...] 3 hours ago with no relief. ALEXANDRIA Noyola is a 39 y.o. female [...] by Nasal route once for 1 dose. Maurepas into the nose as directed. Call 911. [...] Insecurity: No Food Insecurity (01/27/2024) Received from [facility] Hunger Screening Within the past 12 months [...] file Social Connections: Unknown (03/22/2023) Received from [facility] Family and Community Support Help with Day-to-Day Activities: Not on file Lonely or Isolated: Not on file Intimate Partner Violence: Unknown (03/22/2023) Received from [facility] Abuse Screen Unsafe at Home or Work/School: Not on file Feels Threatened by Someone?: Not on file Does Anyone Keep You from Contacting Others or Doint Things Outside the Home?: Not on file Physical Sign of Abuse Present: Not on file Housing Stability: Unknown (03/22/2023) Received from [facility] Housing Stability Current Living Arrangements: Not on file Potentially Unsafe Housing Conditions: Not on file Physical Exam: Physical Exam CONST: -Well-developed well-nourished ; -In no acute distress. -Vitals reviewed. EYES: -EOM intact, KOLBY: -Sclera normal and conjunctiva: clear bilaterally. ENT: - Normal pharynx pink and moist. NECK: -Supple (idgy-wi-lyuaa). CARD: -Rate and rhythm: Regular -Murmurs: No [...] by Nasal route once for 1 dose. Maurepas into the nose as directed. Call 911. [...] information. . . Jennifer Moore MD 02/16/24 [id number] documented in this encounter [facility] 02-16-2024 Hospital Discharg e instructions Jennifer Moore MD - 02/16/2024 4:52 PM EDT Tylenol for moderate pain. Full liquid diet for 2 days. The following attachments cannot be sent through Care Everywhere.Abdominal Pain (Cymraes)documented in this encounter [facility] 02-16-2024 Emergency department Note Patient states that pain is getting worse again. Dr Moore notified. No new orders received at this time. States he is waiting for CT results. Patient updated on plan. [facility] 02-16-2024 Emergency department Note Pt taken to CT scan [facility] 02-16-2024 Physician Emergency department Note Emergency Department Report [facility] EM[facility]INE Service Date:.02/16/24 PCP: No [...] by Nasal route once for 1 dose. Maurepas into the nose as directed. Call 911. [...] Insecurity: No Food Insecurity (01/27/2024) Received from [facility] Hunger Screening Within the past 12 months [...] file Social Connections: Unknown (03/22/2023) Received from [facility] Family and Community Support Help with Day-to-Day Activities: Not on file Lonely or Isolated: Not on file Intimate Partner Violence: Unknown (03/22/2023) Received from [facility] Abuse Screen Unsafe at Home or Work/School: Not on file Feels Threatened by Someone?: Not on file Does Anyone Keep You from Contacting Others or Doint Things Outside the Home?: Not on file Physical Sign of Abuse Present: Not on file Housing Stability: Unknown (03/22/2023) Received from [facility] Housing Stability Current Living Arrangements: Not on file Potentially Unsafe Housing Conditions: Not on file Physical Exam: Physical Exam CONST: -Well-developed well-nourished ; -In no acute distress. -Vitals reviewed. EYES: -EOM intact, KOLBY: -Sclera normal and conjunctiva: clear bilaterally. ENT: - Normal pharynx pink and moist. NECK: -Supple (wdna-kc-ngasb). CARD: -Rate and rhythm: Regular -Murmurs: No [...] by Nasal route once for 1 dose. Maurepas into the nose as directed. Call 911. [...] information. . . Jennifer Moore MD 02/16/24 1733 [facility] 02-13-2024 Evaluation + Plan note Extrac flo from: Title:ED Note Author:Ritesh Heath DO Date :02/13/24 Pain, dental (K08.89: Other specified [...] EDT, STAT, Start date 02/13/24 0:43:00 EDT [facility] 09-02-2024 Hospital Discharge instructions Patient Education [...] or after getting dental care. Medicines Take ncgk-qre-ukfdmol and prescription medicines only as told by [...] pain may be mild or severe. Take dybw-igi-nzbtnes and prescription medicines only as told by [...] provider. Document Revised: 03/04/2021 Document Reviewed: 03/04/2021 Elsevier Patient Education 2023 Live Life 360. Follow Up Care 02/13/2024 00:22:40 With:Dental: [facility] [phone] Address:Unknown When:02/16/2024 With:Dental: [facility] [phone] Address:Unknown When:02/16/2024 With:Dental: [facility] [phone] Address:Unknown When:02/16/2024 [facility] 09-02-2024 NoteED Patient Education Note Dentistry [...] after getting dental care. Medicines ? Take vdql-nwn-hhoqunc and prescription medicines only as told by [...] may be mild or severe. ? Take qhud-vih-njtbnbb and prescription medicines only as told by [...] provider. Document Revised: 03/04/2021 Document Reviewed: 03/04/2021 nvite Patient Education ? 2023 Live Life 360.[facility] 01-22-2024 Hospital Discharge instructions* Discharge Instructions* Eren [...] through Care Everywhere. * Ovarian Cyst: Functional (Cymraes) [facility]* Author Jennifer Duran [facility] Authored January 19, 2024 11: 44am The above note written by __ _Polly Collado____ acting as human recorder, note dictated by Dr. Mcfadden .I performed the above HPI, ROS, and Examination. I formulated and dictated the treatment plan and was present for entire encounter. Jennifer Duran D.O. [facility] Work Phone: 1(152) 237-895805-28-2024 Hospital Discharge instructions* Discharge Instructions* Eren Camejo DO - 11/08/2023 12:01 PM EDT Use clindamycin as prescribed. Continue the pain medicine that you have at home as needed for pain.Follow-up with dentist as scheduled * Attachments The following attachments cannot be sent through Care Everywhere. * Tooth and Gum Pain (Cymraes) [facility] note* Author Jennifer Duran [facility] Authored October 18, 2023 3:45pm The above note written by __ _Polly Collado____ acting as human recorder, note dictated by Dr. Mcfadden .I performed the above HPI, ROS, and Examination. I formulated and dictated the treatment plan and was present for entire encounter. Jennifer Duran D.O. [facility] Work Phone: 1(444) 508-399204-19-2024 Evaluation + Plan noteExtracted from: Title:ED Note [...] Diagnostic Tests Pending * Urine Culture 09/30/23 [facility]04-19-2024 Hospital Discharge instructions Patient Education 09/30/2023 [...] (oophorectomy). Follow these instructions at home: Take rwlh-kuv-rtkfpro and prescription medicines only as told by [...] provider. Document Revised: 11/06/2020 Document Reviewed: 11/06/2020 nvite Patient Education 2022 Live Life 360. Follow Up Care 09/29/2023 23:40:10 With:Ino Royal Address: [address] [address]- Business (1) When:10/03/2023 [facility]04-15-2024 Hospital Discharge instructions Follow Up Care 09/26/2023 13:55:08 With:[employer] Address: [place] [address]- Business (1) When:09/29/2023 17:49:12 With:Tarun BRADEN Address: [address] , [place] [address]- Business (1) When:09/29/2023 17:49:03 With:XXXX NONE Address: [place] When:Within 3 Day(s) [facility]04-15-2024 Evaluation + Plan noteExtracted from: Title:ED [...] q12hr, # 20 tab(s), Refills(s) 0, Pharmacy: [facility]/pharmacy #[id number], 165, cm, 09/26/23 14:18:00 EDT, Height/Length Dosing, 81.2, kg, 09/26/23 14:18:00 EDT, Weight Dosing hyoscyamine, 0.125 mg = 1 tab(s), Oral, QID, X 5 day(s), # 20 tab(s), Refills(s) 0, Pharmacy: [facility]/pharmacy #[id number], 165, cm, 09/26/23 14:18:00 EDT, Height/Length Dosing, 81.2, kg, 09/26/23 14:18:00 EDT, Weight Dosing ketorolac, 30 mg = 1 mL, Injection, IV, Once, Stop date 09/26/23 15:40:00 EDT, STAT, Start date 09/26/23 15:40:00 EDT, 09/26/23 15:40:00 EDT polyethylene glycol 3350, 17 gm, Oral, Daily, X 7 day(s), # 119 gm, Refills(s) 0, Pharmacy: [facility]/pharmacy #[id number], 165, cm, 09/26/23 14:18:00 EDT, Height/Length Dosing, 81.2, kg, 09/26/23 14:18:00 EDT, Weight Dosing Beta hCG Qual CBC w/ Auto Diff Comprehensive Metabolic Panel CT Abdomen/Pelvis w/ Contrast Drug Screen Urine eGFR Extra Blue Tube Extra SST Tube Lipase Level UA with Cult Rflx US Pelvis Non-OB Complete US Transvaginal Non-OB [facility]02-18-2024 Hospital Discharge instructions Patient Education 07/31/2023 [...] Follow these instructions at home: Medicines Take dfnq-prt-vsdbybv and prescription medicines only as told by [...] Watch your condition for any changes. Take xver-whj-gwufwzn and prescription medicines only as told by [...] provider. Document Revised: 07/18/2020 Document Reviewed: 10/08/2019 nvite Patient Education 2022 Live Life 360. Follow Up Care 07/31/2023 15:34:13 With:Follow-up with your PRICK STITCHER at [facility] Address:Unknown When:08/03/2023 17:52:19 Comments:Call the office of [...] weakness, or any new or worsening symptoms. [facility]02-15-2024 Evaluation note* Author Jennifer Duran [facility] Authored July 28, 2023 1:18pm The above note written by __ _Polly Collado____ acting as human recorder, note dictated by Dr. Mcfadden .I performed the above HPI, ROS, and Examination. I formulated and dictated the treatment plan and was present for entire encounter. Jennifer Duran D.O. [facility] Work Phone: [phone]) 245-546102-06-2024 Evaluation note* Encounter Date Diagnosis Assessment Notes Treatment Notes Treatment Clinical Notes Jul, Anxiety (ICD-10 - F41.9) [facility] Other 02-06-2024 Evaluation note* Encounter Date Diagnosis [...] an appointment with her specialist through the [facility] and is scheduled at the end of this month (July) and is hoping to have a total hysterectomy. [facility] Other 12-26-2023 Evaluation note* Encounter Date Diagnosis Assessment Notes Treatment Notes Treatment Clinical Notes May, Cough (ICD-10 - R05.9) [facility] Other 12-04-2023 Evaluation note* Encounter Date Diagnosis Assessment Notes Treatment Notes Treatment Clinical Notes May, Anxiety (ICD-10 - F41.9) [facility] Other 11-12-2023 Hospital Discharge instructions Patient Education [...] Follow these instructions at home: Medicines Take qhak-sux-qhyhtca and prescription medicines only as told by [...] Watch your condition for any changes. Take ezji-cbr-absntbt and prescription medicines only as told by [...] provider. Document Revised: 07/18/2020 Document Reviewed: 10/08/2019 nvite Patient Education 2022 Live Life 360. Follow Up Care 04/24/2023 13:13:55 With:YOUR OBGYN at [facility] Address:Unknown When:04/27/2023 15:50:22 Comments:Seek immediate medical [...] develop any new or worsening symptoms. 3. [facility]11-12-2023 Evaluation + Plan noteExtracted from: Title:ED Note Author:Jignesh Dumont DO Date:06/24/22 Abdominal pain, acute, left lower quadrant (R10.32: Left lower quadrant pain) Ordered: oxycodone, 5 mg = 1 cap(s), Oral, q6hr, PRN Pain 8-10, X 3 day(s), # 12 cap(s), Refills(s) 0, Pharmacy: [facility]/pharmacy #[id number], 165.1, cm, 04/24/23 13:32:00 EST, Height/Length Dosing, [...] Saline Lock Insert UA With Cult Reflex [facility]11-06-2023 Evaluation note* Encounter Date Diagnosis Assessment [...] an appointment with her specialist at the [facility] in June (2023) which was the soonest they could get her in. She is hoping that they will at least remove the ovary but she is willing to have a total hysterectomy if they will do it. 1:13 PM - 1:20 PM [facility] Other 10-20-2023 Evaluation note* Encounter Date Diagnosis Assessment Notes Treatment Notes Treatment Clinical Notes Mar, Anxiety (ICD-10 - F41.9) [facility] Other 10-17-2023 Progress note Author Christi Aquino [facility] March 29, 2023 4:11pm Note Date/Time March 29, 2023 1 1:35am [facility] [address] [place] [address] Progress Note Signed with Addenda Patient: Livia Noyola MR#: [id number] : 1985 Acct:[id number] Age/Sex: 38 / F Adm Date: 3 Loc: 3T Room: [address] [place] [address] Type: ADM IN Attending Dr: Christi Aquino MD Copies to: ~ ADDENDUM1 Upon re-evaluation in the afternoon, patient feels better and would like to go home. Prescribed pain medications as needed as directed. Advised to continue to follow up with [facility] staff time study technician. 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 time study technician eval requested for further evaluation. 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 Afebrile here, no leukocytosis or obvious evidence of infectious process. Placed on Pain meds regimen IV and PO. Ongoing monitoringfor now. Documented By: Christi Aquino MD 03/29/23 11 32 Signed By: <Electronically signed by Christi Aquino MD> 03/29/23 [address] [facility] Work Phone: [phone]) 755-707710-17-2023 History and physical note Author Megan Muniz [facility] March 29, 2023 7:29am Note Date/Time March 29, 2023 7 :29am [facility] [address] [place] [id number] Hospitalist H&P Signed Patient: Livia Noyola MR#: [id number] : 1985 Acct:[id number] Age/Sex: 38 / F Adm Date: 3 Loc: 3T Room: [address] [place] [address] Type: ADM IN Attending Dr: Christi Aquino [...] findings. The patient case was discussed with PRICK STITCHER, who was not convinced that left ovarian [...] % (Auto) 42.8 % (.) 03/29/23 01:40 [place] % (Auto) 7.3 % (.) 03/29/23 01:40 Eos % (Auto) 1.8 % (.) 03/29/23 01:40 Baso % (Auto) 1.3 % (.) 03/29/23 01:40 Nucleat RBC Rel Count 0.1 /100 WBC (0-0.5) 03/29/23 01:40 Neut # (Auto) 3.5 x10E3/uL (1.8-7.7) 03/29/23 01:40 Lymph # (Auto) 3.2 x10E3/uL (1.00-4.8) 03/29/23 01:40 [place] # (Auto) 0.6 x10E3/uL (0.0-0.8) 03/29/23 01:40 [...] pH 7.5 (5.0-9.0) 03/29/23 02:53 Ur Specific [place] 1.003 (1.001-1.030) 03/29/23 02:53 Urine Protein Negative [...] she does have tachycardia We will consult PRICK STITCHER Check lactic acid 2. Microcytic iron deficiency [...] signed by Megan Muniz MD> 03/29/23 [facility] [facility] Work Phone: 1(435) 133-646608-02-2023 Evaluation note* Encounter Date Diagnosis Assessment Notes [...] relief. She would need to see an desktop publishing specialist for this. She is agreeable to [...] an appointment to see Dr. Castillo again. [facility] Other 06-29-2023 Evaluation note* Encounter Date Diagnosis Assessment Notes Treatment Notes Treatment Clinical Notes Nov, Acute sinusitis (ICD-10 - J01.90) Nov, Cough (ICD-10 - R05.9) [facility] Other 05-01-2023 Evaluation note* Encounter Date Diagnosis [...] no discrepancies noted. [facility] spoke with Chad TOWNSEND, the Xanax 0.25 MG tablets are out of stock currently so her dose was increased to 0.5 MG and she was instructed to take 1/2 tablet q8-12 hours as needed. Only 12 tablets were called in. Pt voiced understanding when notified of this change. October, Other 3:17 PM - 3:23 PM [facility] Other 04-12-2023 Evaluation note* Encounter Date Diagnosis [...] Sep, Other 12:46 PM - 12:51 PM [facility] Other 01-30-2023 Evaluation note* Encounter Date Diagnosis Assessment Notes Treatment Notes Treatment Clinical Notes Jun, Anxiety (ICD-10 - F41.9) [facility] Other 01-30-2023 Evaluation note* Encounter Date Diagnosis [...] Side effects/risks/benefi ts of medication were reviewed. [facility] Other 12-21-2022 Evaluation note* Encounter Date Diagnosis [...] May, Other 3:27 PM - 3:32 PM [facility] Other 11-18-2022 Miscellaneous Notes* Telephone Encounter - Tabby Steele Ma - 04/30/2022 2:25 PM EST CMP if needed. Tabby Steele Ma [facility]* Encounter Date Diagnosis Assessment Notes Treatment Notes Treatment Clinical Notes Mar, Anxiety (ICD-10 - F41.9) [place] [facility] Other 10-31-2022 Evaluation note* Encounter Date Diagnosis [...] done and then return to see her PRICK STITCHER at the [facility] because she feel she has another ovarian cyst. [facility] Other 10-28-2022 Miscellaneous Notes* Allied Health - [...] 2:21 PM PAGER/CONTACT #: documented in [facility]Ber[facility]-2022 Miscellaneous Notes* Telephone Encounter - MARY Narvaez - 03/15/2022 12:04 PM EDT Patient appears on the First Time Treatment List for a non-oncology treatment. No psychosocial assessment is indicated. JANNA Narvaez documented in [facility] encounterBer[facility]09-28-2022 NoteHNO ID: [id number] Author: Gil Ni APRN.PIOTR Service: ? 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 Recent laboratories from [facility] October 04, 2020 show [...] and removal ovarian cyst (more content not included)...[facility]09-28-2022 History of Present illness Narrative* Gil Ni APRN.ELIGIBILITY MANAGER - 03/10/2022 2:00 PM EDT Images from the original note were not included. 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 Recent laboratories from [facility] October 04, 2020 show [...] Hyperlipidemia Father Heart Father bypass surgery, stents, [place] Gil Ni APRN.PIOTR [facility] [place], [place] CC: Dr. Jennifer Duran [address] [place] [id number] I spent a total of 30 minutes on the date of the service which included preparing to see the patient, vgpu-of-apls patient care, completing clinical documentation, obtaining and/or reviewing separately obtained history, performing a medically appropriate examination, counseling and educating the pat ient/family/caregiver, ordering medications, tests, or procedures, independently interpreting results (not separately reported), and communicating results to the patient/family/caregiver. documented in this encounterBerger Hospital09-08-2022 Miscellaneous Notes* Telephone Encounter - Meaghan Ordonez - 02/18/2022 3:14 PM EDT Patient has an appt on 02/23. Would you like labs? documented in this encounterBerger Hospital09-06-2022 Evaluation note* Encounter Date Diagnosis Assessment Notes Treatment Notes Treatment Clinical Notes Feb, Iron deficiency anemia (ICD-10 - D50.9) Feb, Elevated liver enzymes (ICD-10 - R74.8) [facility] Other 07-28-2022 Evaluation note* Encounter Date Diagnosis Assessment Notes Treatment Notes Treatment Clinical Notes Dec, Anxiety (ICD-10 - F41.9) [facility] Other 06-24-2022 Hospital Discharge instructions Patient Education [...] develop this condition: Playing sports that include vqkc-ou-agsa contact with others. Having a skin condition [...] Follow these instructions at home: Medicines Take rodc-cpi-nypyhhi and prescription medicines only as told by [...] 06/20/2015 Document Revised: 07/10/2019 Document Reviewed: 06/21/2017 nvite Patient Education 2020 Live Life 360. 12/04/2021 13:59:11 Sinusitis, Adult Sinusitis, Adult Sinusitis [...] at home: Medicines Take, use, or apply dohk-mih-udaevvy and prescription medicines only as told by [...] and water are not available, use hand para operator. Do not smoke. Avoid being around people [...] 05/30/2006 Document Revised: 10/30/2018 Document Reviewed: 10/30/2018 nvite Patient Education 2020 Live Life 360. 12/04/2021 13:59:10 BMI for Adults BMI for [...] height. This can be done either in [place] or metric measurements. Note that charts are available to help you find your BMI quickly and easily without having to do these calculations yourself. To calculate your BMI in [place]es [place] measurements, your health care provider will: [...] medical problems. BMI can be measured using Cymraes measurements or metric measurements. To interpret your [...] 02/08/2005 Document Revised: 05/12/2018 Document Reviewed: 04/12/2018 nvite Patient Education [employer]. [facility] 05-06-2022 Evaluation note* Encounter [...] October, Other 8:28 AM - 8:35 AM [facility] Other 03-01-2022 Evaluation note* Encounter Date Diagnosis Assessment Notes Treatment Notes Treatment Clinical Notes Aug, Cough (ICD-10 - R05) [facility] Other 02-21-2022 Evaluation note* Encounter Date Diagnosis [...] Jul, Other 5:43 PM - 5:48 PM [facility] Other 12-06-2021 Evaluation note* Encounter Date Diagnosis [...] voices that her employer will handle her [facility] paperwork. If she needs a note [...] May, Other 4:25 PM - 4:38 PM [facility] Other 11-09-2021 Evaluation note* Encounter Date Diagnosis [...] R63.5) Her TSH is normal at 1.04. [facility] Other 10-07-2019 History general Narrative - Reported* Type Description Date Medical History endometriosis 2012 Medical History Echocardiogram [employer] [facility] Normal, ejection fraction 60-65% Medical History MRI Brain 03-21-19 [facility] [facility], Normal Medical History anxiety Medical History pneumonia 06/2019 Surgical History Cholecystectomy Surgical History gal bladder removed 2008 Surgical History ablation - endometri osis removed off ovaries Dr Lentz 2012 Surgical History ovarian torsion 2014 Surgical History MRI pelvis 2018 Surgical History ovarian cyst removed 06/2018 Hospitalization History see above [facility] Other Consult note Author Geraldo Hatfield [facility] April 28, 2022 8:22am Note Date/Time April 28, 2022 8:22am [facility] [address] [place] [address] PRICK STITCHER Consult Note Signed Patient: Livia Noyola MR#: [id number] : 1985 Acct:[id number] Age/Sex: 37 / F Adm Date: 2 Loc: Room: [address] [place] [address] Type: ADM INOo Attending Dr: Kiko Saenz [...] Last Admin: 04/28/22 04:43 Dose: 10 ml CLIENT EXPERIENCE ADMINISTRATOR - Exam Physical Exam Vital signs: Temp 97.7 F 04/28/22 04:18 Pulse 95 H 04/28/22 04:18 Resp 16 04/28/22 04:18 BP 136/95 04/28/22 04:18 Pulse Ox 100 04/28/22 04:18 O2 Del Method Room Air 04/28/22 04:18 Constitutional Constitutional: no acute distress Routine Respiratory Exam Respiratory: Absent respiratory distress Routine Abdominal Exam Abdominal: Present soft, normoactive bowel sounds and tenderness; Absent reboundor guarding CLIENT EXPERIENCE ADMINISTRATOR - Results Laboratory Results - Last 48 hrs. 04/28/22 02:00: Urine Color Yellow, Urine Appearance Cloudy A, Urine pH 6.5, Ur Specific [place] 1.005, Urine Protein Negative, Urine Glucose (UA) [...] Creatinine Clear 132.36, Sodium 137, Potassium 3.7, Muhkgsar076, Carbon Dioxide 21.1 L, Anion Gap 14.6, [...] % (Auto) 64.6, Lymph % (Auto) 28.9, [place] % (Auto) 4.5, Eos % (Auto) 1.0, Baso % (Auto) 1.0, Neut # (Auto) 5.1, Lymph # (Auto) 2.3, [place] # (Auto) 0.4, Eos # (Auto) 0.1, Baso # (Auto) 0.1, Nucleated RBC % (auto) 0.0, Platelet Estimate Normal, Plt Morphology Comment Normal, RBC Morphology N/A, Polychromasia Slight, Hypochromasia Slight, Poikilocytosis Moderate, Anisocytosis Marked, Tear Drop Cells Slight, Ovalocytes Moderate CLIENT EXPERIENCE ADMINISTRATOR - A/P (1) Intractable abdominal pain: Code(s): [...] And I suggested she follow-up with her architect internship at the [facility]. Code(s): N83.202 - Unspecified ovarian cyst, left side Status: Acute Documented By: GERALDO HATFIELD MD 04/28/22816 Signed By: <Electronically signed by MD GERALDO HATFIELD> 04/28/22821 [facility] Work Phone: Evaluation + Plan note No data available for this section [facility] Evaluation noteNo assessment information available [facility] Work Phone: Evaluation noteNo InformationNort Modusly Other Evaluation note* Diagnosis Iron deficiency anemia due to chronic blood loss- Primary Iron deficiency anemia secondary to blood loss (chronic) [facility] 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 [facility] Diagnosis 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 Cyst of left ovary Other and unspecified ovarian cyst [facility] Diagnosis 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 Cyst of left ovary Other and unspecified ovarian cyst [facility] Diagnosis Iron deficiency anemia due to chronic blood loss- Primary Iron deficiency anemia secondary to blood loss (chronic) [facility]* Diagnosis Onset Date Resolution Status Abdominal pain acute Ovarian cyst acute [facility] Work Phone: Evaluation note* Diagnosis Onset Date Resolution Status Abdominal pain acute Endometriosis acute Ovarian cyst acute [facility] Work Phone: Evaluation note* Author Jennifer Duran [facility] Authored July 28, 2023 12:18pm The above note written by __ _Polly Collado____ acting as human recorder, note dictated by Dr. Mcfadden .I performed the above HPI, ROS, and Examination. I formulated and dictated the treatment plan and was present for entire encounter. Jennifer Duran D.O. [facility] Work Phone: Evaluation note* Diagnosis Toothache- Primary Unspecified disorder of the teeth and supporting structures documented in this encounter [facility] note* Diagnosis Onset Date Resolution Status Anxiety acute Tachycardia acute [facility] Work Phone: Evaluation note* Diagnosis Cyst of left ovary- Primary Other and unspecified ovarian cyst documented in this encounter [facility] note* Diagnosis Lower abdominal pain Abdominal pain, other specified site [facility] Diagnosis Pelvic pain- Primary Unspecified symptom associated with female genital organs [facility]* Diagnosis RLQ abdominal pain- Primary Abdominal pain, right lower quadrant Pelvic joint pain, right [facility] Diagnosis Endometriosis- Primary Endometriosis, site unspecified Preop testing Unspecified pre-operative examination [facility] Diagnosis Endometriosis- Primary Endometriosis, site unspecified Preop testing Unspecified pre-operative examination [facility]* Diagnosis Endometriosis Endometriosis, site unspecified [facility] Additional Instructions Please arrange a follow-up appointment with your [facility] architect internship.[facility] Work Phone: Hospital Discharge instructions Additional Instructions Take Motrin and Tylenol as needed for mild to moderate pain. Take oxycodone as prescribed for severe pain. Follow-up with Dr. Ness or Dr. Grayson in the office regarding further treatment with a GnRH antagonist[facility] Work Phone: Hospital Discharge instructions Additional Instructions Take Seymour as needed for severe pain, do not drink, drive, operate heavy machinery while taking Continue clindamycin as previously ordered by her dentist Return to emergency room for fever or chills, or dental abscess Follow-up with dentist and oral surgeon as scheduled[facility] Work Phone: Hospital Discharge instructionsAmbulatory Orders* Referral to Allergy/Immunology Time Frame: 12/07/23, Location: None [facility] Work Phone: Hospital Discharge instructions* Attachments The following attachments cannot be sent through Care Everywhere. * Pelvic Pain (Cymraes) documented in [facility] SystemInstructionsNot on filedocumented in this encounterProThe Christ Hospital SystemInstructionsNot on filedocumented in this encounterProThe Christ Hospital SystemInstructionsNot on filedocumented in this encounterProThe Christ Hospital SystemProgress note No data available for this section [facility] Reason for referral (narrative)* Consultation (Routine) - New Request Specialty Diagnoses / Procedures Referred By Contac t Referred To Contact Multispecialty Diagnoses RLQ abdominal pain Pelvic joint pain, right Davi Rivas, DO [address] [id number] Referral ID Status Reason Start Date Expiration Date V isits Requested Visits Authorized [id number] New Request 03/03/2024 03/28/2025 1 1 * Consultation (Routine) - New Request Specialty Diagnoses / Procedures Referred By Contac t Referred To Contact PRICK STITCHER Diagnoses RLQ abdominal pain Pelvic joint pain, right Davi Rivas DO [address] [place] [address] Isabell Hodges, DO [address] [place] [id number] Referral ID Status Reason Start Date Expiration Date V isits Requested Visits Authorized [id number] New Request 03/03/2024 03/28/2025 1 1 [facility] Summary Purpose Family History Relationship Condition Age [...] neoplasm Unknown mother Hypertension Unknown Advance Directives Advance Directive Response [...] Contact Procedures ECG Jennifer Moore MD [address] [place] [address] Referral ID Status Reason Start Date Expiration Date V isits Requested Visits Authorized [id number] New Request 02/16/2024 03/12/2025 1 1 Reason appt pt is brent rosenbaum to see whomever can see her first pt needs consult to discuss possible injection for right sided bursitis Diagnosis 1 Greater trochanteric bursitis of right hip (M70.61) Referral Organization [facility] Referring Provider First Name Jennifer Referring Provider Last Name Roger Referring Provider Specialty Family Prac kasi Referred Organization [facility] Referred Provider Chad Luna II Referred Address [address] [facility] [address] [place],[address] Referred Provider Specialty Orthopedic S urgery Referral Priority Routine General Notes Angelita Trevino 01/12/2023 03:51:47 PM > referral sent p2p. pt understands that she will be contacted to schedule this appt. Reason appt consult for e zia and treatment of continued cough since covid infection Diagnosis 1 Cough (R05) Referral Organization [facility] [place] Referring Provider First Name Jennifer Referring Provider Last Name Roger Referring Provider Specialty [facility] Prac kasi Referred Organization Unknown Facility Referred [...] section and content) DATE CREATED AUTHOR 08/08/2020 [facility] DATE CREATED AUTHOR AUTHOR'S ORGANIZ ATION 05/03/2022 [facility] DATE CREATED AUTHOR AUTHOR'S ORGANIZ ATION 10/19/2022 [facility] DATE CREATED AUTHOR AUTHOR'S ORGANIZ ATION 06/23/2023 [facility] DATE CREATED AUTHOR AUTHOR'S ORGANIZ ATION 09/06/2023 [facility] [place] DATE CREATED AUTHOR AUTHOR'S ORGANIZ ATION 10/21/2023 [facility] EPIC DATE CREATED AUTHOR AUTHOR'S ORGANIZ ATION 11/27/2023 [facility] DATE CREATED AUTHOR AUTHOR'S ORGANIZ ATION 01/23/2024 [facility] DATE CREATED AUTHOR AUTHOR'S ORGANIZ ATION 02/16/2024 [facility] DATE CREATED AUTHOR AUTHOR'S ORGANIZ ATION 03/07/2024 [facility] DATE CREATED AUTHOR AUTHOR'S ORGANIZ ATION 03/30/2024 [facility] DATE CREATED AUTHOR AUTHOR'S ORGANIZ ATION 04/07/2024 [facility] DATE CREATED AUTHOR AUTHOR'S ORGANIZ ATION 04/07/2024 [facility] Care Teams (unrecognized sec tion and [...] Active Amaury Barlow DO Emergency Provider Active 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 Relationship Specialty Start Date End Date Jennifer Duran, DO [address] [place] [address] PCP - General 11/27/07 Jennifer Duran DO [address] [place] [address] Referring Family Practice 04/03/19 Avinash Velásquez MD [address] [place] [id number] Referring PRICK STITCHER 11/30/21 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 Relationship Specialty Start Date End Date Jennfier Duran, DO [address] [place] [address] PCP - General 11/27/07 Jennifer Duran, DO [address] [place] [address] Referring Family Medicine 04/03/19 Avinash Velásquez MD [address] [place] [phone] Referring PRICK STITCHER 11/30/21 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 Relationship Specialty Start Date End Date Jennifer Duran, DO [address] [place] [address] PCP - General 11/27/07 Jennifer Duran, DO [address] [place] [address] Referring Family Medicine 04/03/19 Avinash Velásquez MD [address] [facility] [address] [place] [address] Referring PRICK STITCHER 11/30/21 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 Relationship Specialty Start Date End Date Jennifer Duran, DO [address] [place] [address] PCP - General 11/27/07 Jennifer Duran, DO [address] [place] [address] Referring Family Medicine 04/03/19 Avinash Velásquez MD [address] [facility] [address] [place] [address] Referring PRICK STITCHER 11/30/21 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 Relationship Specialty Start Date End Date Jennifer Duran, DO [address] [place] [address] PCP - General 11/27/07 Jennifer Duran, DO [address] [place] [address] Referring Family Medicine 04/03/19 Avinash Velásquez MD [address] [facility] [address] [place] [address] Referring PRICK STITCHER 11/30/21 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 Relationship Specialty Start Date End Date Jennifer Duran, DO [address] [place] [address] PCP - General 11/27/07 Jennifer Duran, DO [address] [place] [address] Referring Family Medicine 04/03/19 Avinash Velásquez MD [address] [facility] [address] [place] [address] Referring PRICK STITCHER 11/30/21 Team Status: Active Member Role Status Dates Jennifer Duran DO Primary Care Provider Active Yevgeniy Cabrera Jr, MD Emergency Provider Active Kiko Saenz DO Admit Provider, Attending Provider Active 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 Relationship Specialty Start Date End Date Jennifer Duran, DO [address] [place] [address] PCP - General 11/27/07 Jennifer Duran, DO [address] [place] [address] Referring Family Medicine 04/03/19 Avinash Velásquez MD [address] [place] [address] Referring PRICK STITCHER 11/30/21 Team Status: Inactive Member Role Status [...] Status Austin Duran , DO Primary Care Provide r, Attending Provider Active Start: July 28, 2023 End: July 28, 2023 Team Status: Inactive Member Role Status Austin Duran DO Primary Care Provide r, Attending Provider Active Start: October 18, 2023 End: October 18, 2023 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 Relationship Specialty Start Date End Date Jennifer Duran DO [address] [place] [facility] [place] [address] PCP - General Family Medicine 09/14/23 Team Status: Inactive Member Role Status Dates Jennifer Duran DO Primary Care Provider Active S tart: November 08, 2023 End: November 08, 2023 Imani Corbett APRN Emergency Provider Active Start: November 08, 2023 End: November 08, 2023 Team Status: Inactive Member Role Status Dates Jennifer Duran DO Primary Care Provide r, Attending Provider Active Start: November 25, 2023 End: November 25, 2023 Team Status: Active Member Role Status Dates Jennifer Duran DO Primary Care Provide r, Attending Provider Active Start: December 07, 2023 Team Status: Inactive Member Role Status Dates Jennifer Duran DO Primary Care Provide r, Attending Provider Active Start: January 19, 2024 End: January 19, 2024 Team Status: Inactive Member Role Status Dates Jennifer Duran DO Primary Care Provide r, Attending Provider Active Start: March 23, 2024 End: March 23, 2024 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 Relationship Specialty Start Date End Date No Pcp, [place] [address] PCP - General Family Medicine 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 Relationship Specialty Start Date End Date No Pcp, [place] [address] PCP - General Family Medicine 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 Relationship Specialty Start Date End Date No Pcp, [place] [address] PCP - General Family Medicine 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 Reason Comments Follow-up Surgical consent Reason Onset Date Comments Med Refill 04/09/2024 Source Comments (unrecognize d section and content) In the event this informatio n is protected by the Federal Confidentiality of Alcohol and Drug Abuse Patient Records regulations: The Federal rules restrict any use of the information to criminally investigate or prosecute any alcohol or drug abuse patient.[facility] the event this information is protected by the Federal Confidentiality of Alcohol and Drug Abuse Patient Records regulations: The Federal rules restrict any use of the information to criminally investigate or prosecute any alcohol or drug abuse patient.[facility] Hospital[facility] the event this information is protected by the Federal Confidentiality of Alcohol and Drug Abuse Patient Records regulations: The Federal rules restrict any use of the information to criminally investigate or prosecute any alcohol or drug abuse patient.[facility] the event this information is protected by the Federal Confidentiality of Alcohol and Drug Abuse Patient Records regulations: The Federal rules restrict any use of the information to criminally investigate or prosecute any alcohol or drug abuse patient.[facility] HospitalIn the event this information is protected by the Federal Confidentiality of Alcohol and Drug Abuse Patient Records regulations: The Federal rules restrict any use of the information to criminally investigate or prosecute any alcohol or drug abuse patient.[facility] Hospital[facility] the event this information is protected by the Federal Confidentiality of Alcohol and Drug Abuse Patient Records regulations: The Federal rules restrict any use of the information to criminally investigate or prosecute any alcohol or drug abuse patient.[facility] Hospital[facility] the event this information is protected by the Federal Confidentiality of Alcohol and Drug Abuse Patient Records regulations: The Federal rules restrict any use of the information to criminally investigate or prosecute any alcohol or drug abuse patient.[facility] Ordered Prescriptions (unrec ognized section and [...] BE BASED ON THE PRIMARY CLINICAL RECORDS. [facility] [place] [employer] [facility]. provides no warranty or guarantee of the accuracy or completeness of information in this document.
--- NOTE | 2024-04-12 20:44 | ED_ITS ---
HPI - General Chief complaint: Urogenital-Female Stated complaint: POST SURGERY BLEEDING Time Seen by Provider: 04/12/24 20:26 Source: patient Mode of arrival: walk-in Limitations: no limitations History of Present Illness HPI Narrative: hysterectomy 6 days ago at [facility] for endometriosis. Seen here 3 days ago for bleeding. CT unremarkable. States bleeding did decrease but now is bleeding again. States passed large clots and has suprapubic pain. No fever or vomiting. patient feels the pain is worse than 3 days ago. Describes burning pain. Related Data Home Medications ?Medication ?Instructions ?Recorded ?Confirmed alprazolam 0.25 mg tablet 0.25 mg PO Q8H PRN anxiety 09/20/23 04/12/24 citalopram 20 mg tablet (Celexa) 20 mg PO DAILY 09/20/23 04/12/24 atenolol 25 mg tablet 25 mg PO Q24H 02/11/24 04/12/24 Previous Rx's ?Medication ?Instructions ?Recorded ketorolac 10 mg tablet 10 mg PO TID PRN pain #10 tabs 10/22/23 Allergies Allergy/AdvReac Type Severity Reaction Status Date / Time morphine Allergy Severe itching Verified 04/12/24 20:14 prochlorperazine (From AdvReac Mild Anxiety Verified 04/12/24 20:14 Compazine) Review of Systems ROS Status of ROS 10 or more systems reviewed and unremark able except as noted in history and below [facility] Medical History (Updated 04/13/24 @ 03:36 by Pascual Murrell MD) Ovarian cyst ?N83.209 - Unspecified ovarian cyst, unspecified side (ICD-10) Endometriosis ?N80.9 - Endometriosis, unspecified (ICD-10) LLQ abdominal pain ?R10.32 - Left lower quadrant pain (ICD-10) Complex cyst of left ovary ?N83.292 - Other ovarian cyst, left side (ICD-10) Toothache ?K08.89 - Other specified disorders of teeth and supporting structures (ICD- 10) Surgical History (Updated 09/20/23 @ 06:52 by Marichuy Daily RN) History of removal of cyst ?Z98.890 - Other specified postprocedural states (ICD-10) History of cholecystectomy ?Z90.49 - Acquired absence of other specified parts of digestive tract (ICD- 10) Family History (Updated 09/20/23 @ 05:46 by Marichuy Daily RN) Family/Other No problems noted. Father Family history of CHF (congestive heart failure) Family history of COPD (chronic obstructive pulmonary disease) Family history of diabetes mellitus Family history of hypertension Family history of myocardial infarction Mother Family history of hypertension Other Family history of cancer Social History Within the past year, how often did you have a drink containing alcohol: monthly or less Within the past year, how many standard drinks containing alcohol did you have on a typical day: 1 or 2 Within the past year, how often did you have six or more drinks on one occasion: never Total score: 0 Score interpretation: A score less than 3 is consistent with normal alcohol consumption. Smoking status: Never smoker Non-prescribed substance use: denies use Highest level of school completed/degree received: Associate degree: academic program Are you now , , , , never or living with a partner: In a typical week, how many times do you talk on the telephone with family, friends, or neighbors: 3 or more times per week How often do you get together with friends or relatives: 3 or more times per week Little interest or pleasure in doing things: not at all Feeling down, depressed, or hopeless: not at all Feel stressed/tense/nervous/anxious/difficulty sleeping: not at all Do you think of yourself as: straight/heterosexual Gender Identity: female Exam Constitutional Vital Signs, click to edit/add: Last Vital Signs Temp 98.3 F 04/12/24 20:09 Pulse 115 H 04/12/24 20:09 Resp 20 04/12/24 20:09 BP 160/88 H 04/12/24 20:09 Pulse Ox 100 04/12/24 20:09 O2 Del Method Room Air 04/12/24 20:09 Common normals: average body habitus, oriented x3, no limitations, healthy appearing, alert and well nourished General appearance: in distress [facility] Common normals: normocephalic and head/scalp atraumatic Respiratory Common normals: normal respiratory effort, no retractions, no use of accessory muscles and clear to auscultation bilaterally Cardio Common normals: regular rate, regular rhythm, S1 normal heart sound and S2 normal heart sound GI Other: mild-mod suprapubic tenderness Other: dried blood on external genitalia speculum exam limited due to pain but no obvious blood in the vault Extremity Common normals: normal to inspection and full ROM Neuro Common normals: oriented x3, CN's II-XII intact bilaterally, moves all extremities and no focal motor deficits Psych Appearance: grossly normal Course Vital Signs Vital signs: Vital Signs Temperature 98.3 F 04/12/24 20:09 Pulse Rate 115 H 04/12/24 20:09 Respiratory Rate 20 04/12/24 20:09 Blood Pressure 160/88 H 04/12/24 20:09 Pulse Oximetry 100 04/12/24 20:09 Oxygen Delivery Method Room Air 04/12/24 20:09 Temperature 98.3 F 04/12/24 20:09 Pulse Rate 115 H 04/12/24 20:09 Respiratory Rate 20 04/12/24 20:09 Blood Pressure 160/88 H 04/12/24 20:09 Pulse Oximetry 100 04/12/24 20:09 Oxygen Delivery Method Room Air 04/12/24 20:09 MDM - OB/Uterine Contractions MDM Narrative Medical decision making narrative: patient is 1 weeks s/p hysterectomy for endometriosis. Seen here 3 days ago for bleeding and CT unremarkable. now returns complaining of passing clots at home and a burning suprapubic pain that is increased from 3 days ago. She has mod suprapubic tenderness but no guarding pelvic with dry blood on external genitalia. Speculum exam limited due to pain but I was surprise there was no obvious blood in the vault because of increasing pain, repeat CT ordered. Patient medicated with Fentanyl for pain CT today compared to CT from 04/08 only notes inflammatory changes in the pelvis from recent hysterectomy. the previous CT commented there were no inflammatory changes UA nitrite positive. Patient discharged with a prescription for Levaquin and Pyridium. 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 No bleeding after she arrived here other than she would note blood when she would use the bathroom and wipe afterwards. Also unclear why she has so much pain with the findings noted on the CT as post op inflammatory changes only Lab Data Labs: Lab Results 04/12/24 04/13/24 Range/Units 21:08 01:55 WBC 8.5 (4.0-11.0) 10^3/uL RBC 4.21 (4.20-5.40) 10^6/uL Hgb 9.5 L (12.0-16.0) g/dL Hct 31.6 L (36.0-48.0) % MCV 75.1 L (81.0-99.0) fL MCH 22.6 L (26.7-34.0) pg MCHC 30.1 (29.9-35.2) g/dL RDW 16.7 H (11.0-15.0) % Plt Count 551 H (150-450) 10^3/uL MPV 9.7 (9.5-13.5) fL Neut % (Auto) 66.9 (43.0-75.0) % Lymph % (Auto) 23.3 (20.5-60.0) % Edwards % (Auto) 7.1 (1.7-12.0) % Eos % (Auto) 1.6 (0.9-7.0) % Baso % (Auto) 0.7 (0.2-2.0) % Neut # (Auto) 5.7 (1.4-6.5) 10^3/uL Lymph # (Auto) 2.0 (1.2-3.8) 10^3/uL Edwards # (Auto) 0.6 (0.3-0.8) 10^3/uL Eos # (Auto) 0.1 (0.0-0.7) 10^3/uL Baso # (Auto) 0.1 (0.0-0.1) 10^3/uL Abs Immat Gran (auto) 0.03 (0.00-0.03) 10^3/uL Imm/Tot Granulo (auto) 0.4 (0.0-0.5) % Sodium 142 (136-145) mmol/L Potassium 3.8 (3.5-5.1) mmol/L Chloride 106 (98-107) mmol/L Carbon Dioxide 23.3 (21.0-32.0) mmol/L Anion Gap 16.5 BUN 4.0 L (7.0-18.0) mg/dL Creatinine 1.00 (0.55-1.02) mg/dL Est GFR ( Amer) >60 (>=60 mL/min/1.73m^2) Est GFR (Non-Af Amer) >60 (>=60 mL/min/1.73m^2) BUN/Creatinine Ratio 4.0 Glucose 105 (74-106) mg/dL Lactate 1.5 (0.4-2.0) mmol/L Calcium 9.5 (8.5-10.1) mg/dL Total Bilirubin 0.3 (0.2-1.0) mg/dL AST 24 (15-37) U/L ALT 58 (14-59) U/L Alkaline Phosphatase 131 H (46-116) U/L Total Protein 8.2 (6.4-8.2) g/dL Albumin 3.6 (3.4-5.0) g/dL Globulin 4.6 g/dL Albumin/Globulin Ratio 0.8 Urine Color Lt. yellow (YELLOW) Urine Clarity Clear (CLEAR) Urine pH 6.5 (5.0-9.0) Ur Specific [place] <=1.005 A (1.005-1.025) Urine Protein Negative (NEG/TRACE) mg/dL Urine Glucose (UA) Negative (NEGATIVE) mg/dL Urine Ketones Negative (NEGATIVE) mg/dL Urine Occult Blood Negative (NEGATIVE) Urine Nitrite Positive A (NEGATIVE) Urine Bilirubin Negative (NEGATIVE) Urine Urobilinogen 1.0 (0.2-1.0) EU/dL Ur Leukocyte Esterase Trace A (NEGATIVE) Urine RBC 0-2 (0-2) #/HPF Urine WBC 0-2 A (NONE SEEN) #/HPF Ur Squamous Epith Cells Rare (NONE/RARE) #/LPF Urine Crystals None seen (None Seen) #/HPF Urine Bacteria Trace A (NONE SEEN) #/HPF Urine Casts None seen (NONE SEEN) #/LPF Urine Mucus None seen (NONE SEEN) Ur Culture Indicated? Yes Imaging Data Chest x-ray: Radiologist's impression: ITS Impressions Abdomen/Pelvis CT 04/12/24 21:36 IMPRESSION: 1. There are inflammatory changes in the pelvis from recent hysterectomy. No organized fluid collection is present to suggest abscess. 2. Small bilateral pleural effusions. Electronically authenticated by: STEPHANIE SAWYER Date: 04/13/2024 01:05 [email or web address]=#[email or web address] [email or web address]=#[email or web address] Find: Highlight all Match case Current View [email or web address]=#[email or web address]&zoom=auto,-13,500 Page: of 2 Current View [email or web address]=auto,-13,500 [place] [id number] Patient Name: ANTONIA DE LOS SANTOS MRN: [id number] date: 1985 Sex: F Assigned Patient Location: ER Current Patient Location: ER Accession/Order Number: [id number] Exam Date: 04/08/2024 22:55 Report Date: 04/09/2024 01:18 At the request of: SHALONDA MARKER Procedure: CT abdomen pelvis w con CT OF THE ABDOMEN AND PELVIS WITH CONTRAST: 04/08/2024 10:55 PM EDT CLINICAL HISTORY: Postop. Hysterectomy with abdominal pain and vaginal bleeding. COMPARISONS: CT abdomen and pelvis with contrast 09/20/2023 05/08/2023. TECHNIQUE: Thin section axial CT images were obtained from the lung bases to the pubis symphysis. This CT exam was performed using one or more of the following dose reduction techniques: Automated exposure control, adjustment of the mA and/or kV according to patient size, or use of iterative reconstruction technique. Thin section coronal and sagittal images were reconstructed from the axial data set. All images were reviewed and interpreted. CONTRAST: Omnipaque 300, 100 mL IV without event. FINDINGS: LUNG BASES: Streaky areas of linear postop atelectasis and mild basilar interstitial edema likely from postop mild fluid overload and lower lobes with trace simple layering right pleural effusion and atelectasis. No left pleural effusion. No lung base consolidation. Cardiac chambers are normal. LIVER: Liver parenchyma is normal. No mass or cyst. Normal portal vein enhancement. GALLBLADDER: Cholecystectomy. BILIARY TREE: There is some mild stable postcholecystectomy intrahepatic and extrahepatic bile duct distention largely similar relative to 05/08/2023. Correlate with normal biliary labs. PANCREAS: Normal. SPLEEN: Normal. ADRENALS: Normal. KIDNEYS: Normal, without urolithiasis or hydronephrosis. URINARY BLADDER: Grossly unremarkable. PELVIC STRUCTURES: Recent total abdominal hysterectomy. There is no significant free fluid in the pelvis. No loculated fluid or abscess. No significant inflammatory changes. Only trace stranding and subtle fluid, expected given recent surgery. No other pelvic abnormality. BOWEL: No evidence of obstruction, gross mass, or inflammatory change. There is no significant diverticulosis. There is no evidence of diverticulitis. There is some moderate diffuse colonic stool which could reflect some postop constipation. APPENDIX: No active disease with normal appendix. LYMPH NODES: No pathologically enlarged lymph nodes identified. PERITONEUM: No intraperitoneal free air. No free intraperitoneal fluid. MESENTERY: Unremarkable. RETROPERITONEUM: The retroperitoneum is unremarkable. AORTA: Normal in caliber. BODY WALL: No body wall mass. OSSEOUS STRUCTURES: Unremarkable. No acute findings. IMPRESSION: 1. Hysterectomy without obvious complications in the pelvis or elsewhere. 2. Trace simple layering right pleural effusion with streaky areas of the dependent discoid and dependent postop atelectasis of lower lobes. 3. Moderate colonic stool. Correlate for postop constipation. 4. No obvious active contrast extravasation or bleeding. Electronically authenticated by: MATEUS ARAUZ Date: 04/09/2024 01:18 Discharge Plan Discharge Chief Complaint: Urogenital-Female Clinical Impression: Post-op bleeding, UTI (urinary tract infection), Abnormal vaginal bleeding Patient Disposition: Home, Self-Care Prescriptions / Home Meds: No Action ketorolac 10 mg tablet 10 mg PO TID PRN (Reason: pain) Qty: 10 0RF alprazolam 0.25 mg tablet 0.25 mg PO Q8H PRN (Reason: anxiety) citalopram [Celexa] 20 mg tablet 20 mg PO DAILY atenolol 25 mg tablet 25 mg PO Q24H Print Language: Luxembourger Instructions: Abnormal (Dysfunctional) Uterine Bleeding (ED), Urinary Tract Inf ection in Women (DC) Referrals: JENNIFER DURAN [Primary Care Provider] - 1 week
[2024-04-12] MEDS: FENTANYL CITRATE/PF 100 MCG/2 ML VIAL IV ×2 (21:24→22:46)
[2024-04-12 21:27] LABS: Basophils Absolute Auto 0.1 10^3/uL (0.0-0.1); Basophils Percent Auto 0.7 % (0.2-2.0); Eosinophils Absolute Auto 0.1 10^3/uL (0.0-0.7); Eosinophils Percent Auto 1.6 % (0.9-7.0); Hematocrit 31.6 % (36.0-48.0); Hemoglobin 9.5 g/dL (12.0-16.0); Immature Granulocytes Abs Auto 0.03 10^3/uL (0.00-0.03); Immature Granulocytes Pct Auto 0.4 % (0.0-0.5); Lymphocytes Percent Auto 23.3 % (20.5-60.0); Mean Corpuscular HGB Conc 30.1 g/dL (29.9-35.2); Mean Corpuscular Hemoglobin 22.6 pg (26.7-34.0); Mean Corpuscular Volume 75.1 fL (81.0-99.0); Mean Platelet Volume 9.7 fL (9.5-13.5); Monocytes Absolute Auto 0.6 10^3/uL (0.3-0.8); Monocytes Percent Auto 7.1 % (1.7-12.0); Neutrophils Absolute Auto 5.7 10^3/uL (1.4-6.5); Neutrophils Percent Auto 66.9 % (43.0-75.0); Platelet Count 551 10^3/uL (150-450); Red Blood Count 4.21 10^6/uL (4.20-5.40); Red Cell Distribution Width 16.7 % (11.0-15.0); White Blood Count 8.5 10^3/uL (4.0-11.0)
--- NOTE | 2024-04-12 21:36 | CT_ITS ---
The [address] [address] Patient Name: ANTONIA DE LOS SANTOS MRN: [id number] date: 1985 Sex: F Assigned Patient Location: ER Current Patient Location: ER Accession/Order Number: [id number] Exam Date: 04/12/2024 23:07 Report Date: 04/13/2024 01:05 At the request of: BELKIS SANDOVAL Procedure: CT abdomen pelvis wo con EXAMINATION:CT abdomen pelvis wo con INDICATION:post hysterectomy pain and bleeding COMPARISON:02/16/2024, 04/08/2024 TECHNIQUE:Multiple thin section transaxial slices were acquired through the abdomen and pelvis without intravenous contrast. Coronal and sagittal reconstructed images were reviewed. Oral contrastwas administered. FINDINGS: LOWER CHEST: Small pleural effusions are present in the lower chest. LIVER: The liver is unremarkable. GALLBLADDER AND BILIARY SYSTEM: No obvious ductal dilation. The gallbladder surgically absent. SPLEEN: The spleen is unremarkable. PANCREAS: The pancreas is unremarkable. ADRENAL GLANDS: The adrenal glands are unremarkable. KIDNEYS AND URETERS: There is no hydronephrosis of the kidneys.No obstructing urologic calcifications are present. VASCULATURE: Vascularity is unremarkable. PERITONEUM/RETROPERITONEUM: There is a small amount of fluid in the pelvis which is likely residual inflammation from recent hysterectomy. No organized fluid collections are present to suggest abscess. There is no free air or present. LYMPH NODES: No suspicious lymphadenopathy. GASTROINTESTINAL TRACT: Enteric contrast has been administered. The contrast remains within the small bowel loops and has not yet reached the colon. The bowel is normal in caliber.No acute inflammatory changes are present within the bowel.The appendix is visualized and is not inflamed. BLADDER: The urinary bladder is unremarkable. REPRODUCTIVE SYSTEM: The uterus is surgically absent. There are inflammatory changes along the vaginal cuff from prior hysterectomy. BODY WALL: There is a tiny fat-containing umbilical hernia. BONES: Osseous structures are unremarkable. CT/CT abdomen pelvis wo con IMPRESSION: 1. There are inflammatory changes in the pelvis from recent hysterectomy. No organized fluid collection is present to suggest abscess. 2. Small bilateral pleural effusions. Electronically authenticated by: STEPHANIE SAWYER Date: 04/13/2024 01:05
[2024-04-12 21:39] LABS: Alanine Aminotransferase 58 U/L (14-59); Albumin Globulin Ratio 0.8; Albumin Level 3.6 g/dL (3.4-5.0); Alkaline Phosphatase 131 U/L (46-116); Anion Gap 16.5; Aspartate Amino Transferase 24 U/L (15-37); Bilirubin Total 0.3 mg/dL (0.2-1.0); Calcium 9.5 mg/dL (8.5-10.1); Carbon Dioxide 23.3 mmol/L (21.0-32.0); Chloride 106 mmol/L (98-107); Estimated GFR (African America >60 (>=60 mL/min/1.73m^2); Estimated GFR (Non-African Ame >60 (>=60 mL/min/1.73m^2); Globulin 4.6 g/dL; Glucose 105 mg/dL (74-106); Sodium 142 mmol/L (136-145); Total Protein 8.2 g/dL (6.4-8.2)
[2024-04-12 21:42] LABS: Lactate/Lactic Acid 1.5 mmol/L (0.4-2.0)
[2024-04-12 21:43] LABS: Potassium 3.8 mmol/L (3.5-5.1)
[2024-04-12] MEDS: HYDROMORPHONE HCL 0.5 MG/0.5 ML SYRINGE IV (23:52)
--- NOTE | 2024-04-13 00:58 | PC.NURSE ---
Updated patient about CT scan time hopefully only being another half hour or so. Pt denies any needs at this time.
[2024-04-13] MEDS: 0.9 % SODIUM CHLORIDE 1,000 ML 999 ML IV (01:45)
[2024-04-13 02:20] LABS: Bilirubin Urine NEGATIVE (NEGATIVE); Blood Urine NEGATIVE (NEGATIVE); Clarity Urine CLEAR (CLEAR); Color Urine LT. YELLOW (YELLOW); Glucose Urine UA NEGATIVE (NEGATIVE); Ketones Urine NEGATIVE (NEGATIVE); Leukocyte Esterase Urine TRACE (NEGATIVE); Nitrite Urine POSITIVE (NEGATIVE); Protein Urine NEGATIVE (NEG/TRACE); Specific Gravity Urine <=1.005 (1.005-1.025); pH Urine 6.5 (5.0-9.0)
[2024-04-13 02:32] LABS: Urine Microscopic Indicated YES
[2024-04-13 02:39] LABS: Bacteria Urine TRACE #/HPF (NONE SEEN); Cast Seen? NONE SEEN #/LPF (NONE SEEN); Crystals Seen? None Seen #/HPF (None Seen); Mucus Urine NONE SEEN (NONE SEEN); RBC Urine 0-2 #/HPF (0-2); Squamous Epithelial Cell Urine RARE #/LPF (NONE/RARE); WBC Urine 0-2 #/HPF (NONE SEEN)
[2024-04-13 02:40] LABS: Urine Culture Indicated YES
[2024-04-13] MEDS: PHENAZOPYRIDINE 100 MG TABLET 200 MG PO (02:56)
[2024-04-13] MEDS: CEFTRIAXONE 1,000 MG in 0.9 % SODIUM CHLORIDE 50 ML 100 MG IV (02:56)
[2024-04-13] MEDS: HYDROCODONE/ACET 5-325 MG TABLET 4 TAB PO (03:45)
[2024-04-13 03:49] VITALS: BP 140/92; PULSE 90; O2SAT 98
== END 2024-04-13 03:49 | disposition home or self-care (01) ==
PROVIDERS: Emergency Provider Internal Medicine; PCP Family Medicine
DX: N99.820 Postprocedural hemorrhage of a genitourinary system organ or structure following a genitourinary system procedure (principal); N39.0 Urinary tract infection, site not specified; Z90.710 Acquired absence of both cervix and uterus
CPT/HCPCS: 36415; 74176; 80053; 81001; 83605; 85025; 87086; 96365; 96375; 96376; 99285; J0696; J1171; J3010; Q9966

== ENCOUNTER 2024-06-27 06:39 | Emergency (ER) | payer BC, SELFPAY ==
[2024-06-27 06:45] VITALS: BP 138/94; PULSE 84; TEMP 37.1; O2SAT 100; BMI 30.8
--- OUTSIDE RECORDS SUMMARY | 2024-06-27 06:47 | XMS_ITS | CCD ---
Author Organization [facility] Care Team Providers Care Highway Administrative Engineer Name Role Phone DO Jennifer Duran Primary Care Provider DO Augustus Santiago Attending Provider DO Amaury Barlow Emergency Provider Jennifer Duran Primary Care Physician [phone] Jennifer Duran Unavailable DO Jennifer Duran Primary Care Provider [phone] DO Jennifer Duran Attending Provider Jennifer Duran DO Primary Care Provider Jennifer Duran DO Unavailable [phone] Didier BARNETT, Penola P Unavailable [phone] Jennifer Duran DO Primary Care Provider Jennifer Duran DO Unavailable [phone] DO Jennifer Duran Primary Care Provider [phone] DO Jennifer Duran Attending Provider [phone] MD Yevgeniy Cabrera Jr Emergency Provider DO Kiko Saenz Admit Provider DO Kiko Saenz Attending Provider Jennifer Duran DO Primary Care Provider [phone] Jennifer Duran DO Unavailable Didier BARNETT, Penola P Unavailable [phone] JENNIFER DURAN Primary Care Unavailable MADYSON NI Referring Unavailable MADYSON NI Referring Unavailable JENNIFER DURAN Primary Care Unavailable MADYSON NI Attending Unavailable JENNIFER DURAN Referring Unavailable JENNIFER DURAN Primary Care Unavailable SABA REYNOLDS Referring Unavailable JENNIFER DURAN Primary Care Unavailable BELKIS SANDOVAL Admitting Unavailable DR JENNIFER DURAN Primary Care Unavailable REINECK, DR JASMIN Hunter Consulting UnavailBELKIS Blanco Attending Unavailable KIMMIE, DR AUBREY Varghese Consulting Unavailable BELKIS SANDOVAL Consulting Unavailable DO Jennifer Duran Primary Care Provider DO Elier bacon Emergency Provider DO Ming Childress Emergency Provider MD Megan Garcia Admit Provider [phone] MD Megan Muniz Attending Provider DO Kiko Saenz Other Provider MD Christi Aquino Attending Provider DO Jaime Aleman Attending Provider LLC, GENERIC Primary Care Physician Unavailab DO Jennifer Rm Primary Care Provider [facility], DO Elier Leos Emergency Provider [phone] DO Jaime Aleman Attending Provider [phone] DO Ming Childress Emergency Provider UnavaMD Megan Lira Admit Provider MD Christi Aquino Attending Provider Visctigre, DO Hoover Other Provider NO FAMILY, PHYSICIAN Primary Care Provider Unava joe SEN MD, EVGENY Attending Unavailable JENNIFER DURAN [facility] NONE, XXXX Primary Care Physician Unavailab DESTINI Sheehan Attending Unavailable TARUN BRADEN Attending Unavailable Jennifer Duran DO Primary Care Provider Unavail able DO Jennifer Duran Primary Care Provider CATY Corbett Emergency Provider [phone] DO Jennifer Duran Attending Provider Jennifer Duran [...] Admitting Unavailable Girivelisse, Jennifer Primary Care Unavailable Wilber, Jennifer Attending Unavailable Wilber, Jennifer Admitting Unavailable Girivelisse, Jennifer Primary Care Unavailable [facility], Jaime P Attending Unavailable [facility], Jaime P Admitting Unavailable Manuel, Elier M Attending Unavailable Wilber, Jennifer Primary Care Unavailable Manuel, Elier M Admitting Unavailable Unavailable Primary Care Provider Unavailabl Jignesh Kaba Attending Unavailable Ritesh Heath SEbenezer Attending Unavailable Ritesh Heath SEbenezer Attending Unavailable Konstantin Penny Attending Unavailable Jignesh Dumont Attending Unavailable Ritesh Heath SEbenezer Attending Unavailable Unavailable Primary Care Provider Unavailabl DAVI Maradiaga Attending Unavailable JENNIFER MOORE Attending Unavailable ASHLEY DELCID Attending Unavailable No Pcp, No Pcp Primary Care Provider Unavailabl e ADIEL APARICIO Attending Unavailable NO PCP, NO PCP Primary Care Unavailable ADIEL APARICIO Attending Unavailable NO PCP, NO PCP Primary Care Unavailable ADIEL APARICIO Attending Unavailable NO PCP, NO PCP Primary Care Unavailable No Pcp, No Pcp Primary Care Provider Unavailabl ROSE Bill Attending Unavailable JACY SALDANA Attending Unavailable JENNIFER DURAN Primary Care Unavailable EREN CAMEJO Attending Unavailable JENNIFER DURAN Primary Care Unavailable EREN CAMEJO Attending Unavailable No Pcp, No Pcp Primary Care Provider Unavailabl ADIEL Caballero Referring Unavailable NO PCP, NO PCP Primary Care Unavailable NO PCP, NO PCP Primary Care Unavailable ADIEL APARICIO Admitting Unavailable ADIEL APARICIO Attending Unavailable NO PCP, NO PCP Primary Care Unavailable NO PCP, NO PCP Primary Care Unavailable JAY JAY MCDERMOTT Attending UnavailROBBIE Higginbotham Referring Unavailable NO PCP, NO PCP Primary [...] PCP Primary Care Unavailable GUSTAVO DAVIES Attending Unavailab GUSTAVO Raya Attending Unavailab GUSTAVO Raya Referring Unavailab jeffery NO PCP, NO PCP Primary Care Unavailable NO PCP, NO PCP Primary Care Unavailable JIMENA FARMER Attending Unavailable NO PCP, NO PCP Primary Care Unavailable TYRONE CHENG Attending Unavailable NO PCP, NO PCP Primary Care Unavailable ROSE WILSON Attending Unavailable NO PCP, NO PCP Primary Care Unavailable TYRONE CHENG Attending Unavailable Eran Hill Attending Unavailable Provider, None Primary Care Unavailable Jasmyn Magana Attending Unavailable Provider, None Primary Care Unavailable Allergies Allergy Classification Reported Allergen(s) Allergy Type Date of Onset Reaction(s) Facility (20 sources) Morphine; Translations: [MORPHINE] Drug Allergy 06-20-19 Other: See Comments, Itching (finding), Itching, Hives [facility] (19 sources) Atenolol Drug Allergy 04-18-20 Dr. Cantu/ [facility] (6 sources) seasoninig Propensity to adverse reactions Unknown Oco Other (1 source) Morphine Drug Allergy 07-28-19 [facility] Repository (18 sources) Seasonal allergy Propensity to adverse reactions 04-18-20 Unknown, Watery Eye [facility] (20 sources) Prochlorperazine; Translations: [prochlorperazine ] Drug Allergy 05-25-20 Feeling nervous (finding), Anxiety [facility] (1 source) Morphine Drug Allergy 04-30-20 [facility] Repository (1 source) No Known Medication Allergies; Translations: [No Known Medication Allergies] Propensity to adverse reactions (disorder) [facility] Repository (3 sources) Atenolol Propensity to adverse reactions to drug 04-18-20 [facility] (3 sources) Phenothiazine Propensity to adverse reactions to drug 05-25-20 Anxiety, Itching [facility] (3 sources) Octacosanol Propensity to adverse reactions to drug 04-18-20 [facility] Medications Current Medications Medication Drug Class(es) Dates Sig (Normalized) Sig (Original) acetaminophen 500 mg oral tablet (4 sources) Start: 04-06-2024 take 2 tablets by mouth [...] 1615 Start: 02-11-2024 take 1 tablet by melodie th every six hours hydroCODone-acetaminophen 5-325 MG [...] September 14, 2021 April 28, 2022 1:50am acetaminophen 325 mg / oxyCODONE hydrochloride 5 mg oral tablet (20 sources) Opioid Agonist Start: 06-25-2024 End: 06-28-2024 Percocet 5 mg-325 mg oral tablet 1 tab(s), Oral, q8hr for 3 day(s), 9 tab(s), Refill(s) 0, [facility]/pharmacy #[id number], 165, cm, 06/24/24 19:33:00 EST, Height/Length Dosing, 89.9, kg, 06/24/24 19:33:00 EST, Weight Dosing Start Date: 06/25/24 Stop Date: 06/28/24 Status: Ordered Start: 01-27-2024 End: 02-23-2024 take 1 tablet [...] for 3 day(s), 12 tab(s), Refill(s) 0, [facility]/pharmacy #[id number], 165.1, cm, 07/31/23 15:42:00 EST, [...] days Jan, Active Start: 12-04-2021 End: 03-29-2023 alprazolam 0.25 mg Tab Refil ls(s) 0 Start Date: 12/04/21 Status: Ordered Start: 12-04-2021 End: 09-14-2023 take 0.25 mg [...] Comment on above: TAKE 1 TABLET BY MELODIE EVERY 8 TO 12 HOURS NEEDED FOR ANXIETY amoxicillin 80 mg/ml oral suspension (1 source) Penicillin-class Antibacterial Start: 2 End: 2 take 1000 mg by mouth every twelve hours amoxicillin 400 mg/5 mL Oral Liq 1,000 mg = 12.5 mL, Oral, q12hr, X 10 day(s), # 250 mL, Refills(s) 0, Pharmacy: [facility]/pharmacy #[id number], 166, cm, 12/04/21 12:54:00 EDT, Height/Length Dosing, 84, kg, 12/04/21 12:54:00 EDT, Weight Dosing Start Date: 12/04/21 Stop Date: 12/14/21 Status: Ordered amoxicillin 875 mg / clavulanate 125 mg oral tablet (20 sources) Penicillin-class Antibacterial Start: 4 End: 4 Amoxicillin-clavula carson 875-125 MG tablet Take by mouth. 02/13/2024 02/20/2024 Active Start: 02-13-2024 End: 02-20-2024 Augmentin 875 mg-125 mg Tab 1 tab(s), Oral, q12hr for 7 day(s), 14 tab(s), Refill(s) 0, [facility]/pharmacy #[id number], 165.1, cm, 02/13/24 0:28:00 EDT, Height/Length Dosing, 87.3, kg, 02/13/24 0:28:00 EDT, Weight Dosing Start Date: 02/13/24 Stop Date: 02/20/24 Status: Ordered Start: 07-28-2023 End: 10-18-2023 take 1 tablet by mouth twice daily at mealtime Amoxicillin-Pot Clavulanate Discontinued 1 TAB PO Twice daily 01 04October 04, 2023 10:41am May 7th, 2024 3:11pm Take with food Start: 04-18-2023 take 10 mL by mouth twice moises y Amoxicillin-Pot Clavulanate 600-42.9 MG/5ML 10 ml Orally bid for 10 days Apr, Active Start: 03-02-2023 take 1 tablet by melodie th twice daily at mealtime Amoxicillin-Pot Clavulanate [...] Active Start: 08-03-2021 take 1 tablet by melodie th twice daily at mealtime Amoxicillin-Pot Clavulanate [...] Active Start: 05-18-2021 take 1 tablet by melodie th once daily at mealtime Aspirin EC [...] Atenolol Discontinued 2 5 MG PO Daily 30 January 19, 2024 11:38am March 23, 2024 [...] Take 20 mg by mouth once daily. clindamycin 300 mg oral capsule (4 sources) Lincosamide Antibacterial Start: 02-13-2024 clindamycin 300 MG capsule 02/13/2024 Active Start: 11-08-2023 End: 11-18-2023 take 1 capsule by mouth four times daily clindamycin (CLEOCIN) 300 MG capsule Take 1 capsule by mouth 4 times daily for 10 days 40 capsule 0 11/08/2023 11/18/2023 Active diflunisal 500 mg oral tablet (4 sources) Nonsteroidal Anti-inflammatory Drug Start: 09-26-2023 take 1 tablet by mouth every twelve hours diflunisal 500 mg Tab 500 mg = 1 tab(s), Oral, q12hr, # 20 tab(s), Refills(s) 0, Pharmacy: [facility]/pharmacy #[id number], 165, cm, 09/26/23 14:18:00 EDT, Height/Length Dosing, 81.2, kg, 09/26/23 14:18:00 EDT, Weight Dosing Start Date: 09/26/23 Status: Ordered docusate sodium 50 mg / sennosides, long-term 8.6 mg oral tablet (4 sources) Start: 04-06-2024 take 1 tablet by mouth [...] April 28, 2022 1:50am 84 hr estradiol 0.05496 mg/hr / norethindrone acetate 0.22749 mg/hr transdermal system (4 sources) Estrogen Start: 04-09-2024 estradiol-norethindrone acet (COMBIPATCH) 0.05-0.14 mg/[address] 1 patch on the skin 2 (two) times a week. 24 patch 4 04/09/2024 Active ferrous sulfate (20 sources) Start: 07-23-2020 take 1 tablet by mouth every other day Ferrous Sulfate 325 (65 Fe) MG 1 tablet Orally qod Jul, Active Start: 07-23-2020 take 1 tablet by melodie every twenty-four hours Ferrous Sulfate 325 (65 [...] 1 TABLET BY MOUTH ONCE 01/30/2024 Active gabapentin 300 mg oral capsule (1 source) Anti-epileptic Agent Start: 06-10-2024 End: 06-20-2024 take 1 capsule by mouth three times daily gabapentin (NEURONTIN) 300 mg capsule Indications: Endometriosis Take 1 capsule (300 mg total) by mouth 3 (three) times a day for 10 days. 30 capsule 06/10/2024 06/20/2024 Active hyoscyamine sulfate 0.125 mg oral tablet (2 sources) Start: 09-26-2023 End: 10-01-2023 take 1 tablet by mouth four times daily Levsin 0.125 mg SL Tab 0.125 mg = 1 tab(s), Oral, QID, X 5 day(s), # 20 tab(s), Refills(s) 0, Pharmacy: [facility]/pharmacy #[id number], 165, cm, 09/26/23 14:18:00 EDT, Height/Length Dosing, 81.2, kg, 09/26/23 14:18:00 EDT, Weight Dosing Start Date: 09/26/23 Stop Date: 10/01/23 Status: Ordered ibuprofen 800 mg oral tablet (19 sources) Nonsteroidal Anti-inflammatory Drug Start: 04-06-2024 take [...] Comment on above: Take 1 tablet by melodie th every 6 hours. ketorolac tromethamine 10 mg oral tablet (11 sources) Nonsteroidal Anti-inflammatory Drug, Cyclooxygenase Inhibitor take 1 tablet by mouth every six hours as needed for pain ketorolac (TORADOL) 10 mg tablet Take 1 tablet (10 mg total) by mouth every 6 (six) hours as needed for pain. Active mupirocin 0.02 mg/mg topical ointment (1 source) RNA Synthetase Inhibitor Antibacterial Start: End: mupirocin Top 2% Oint 1 luis, Topical, TID for 10 day(s), 22 gm, Refill(s) 0, [facility]/pharmacy #[id number], 166, cm, 12/04/21 12:54:00 EDT, Height/Length Dosing, 84, kg, 12/04/21 12:54:00 EDT, Weight Dosing Start Date: 12/04/21 Stop Date: 12/14/21 Status: Ordered nabumetone 750 mg oral tablet (3 sources) Nonsteroidal Anti-inflammatory Drug Start: take 1 tablet by mouth every twelve hours as needed for pain nabumetone 750 MG tablet take 1 tablet by mouth every 12 hours as needed for pain 05/08/2023 Active naloxone hydrochloride 40 mg/ml nasal spray (3 sources) Opioid Antagonist Start: End: naloxone 4 MG/0.1ML 1 spray by Nasal route once for 1 dose. [place] into the nose as directed. Call 911. If no response in 2 minutes use a new nasal spray in other nostril. Repeat until help arrives. 1 Each 02/16/2024 Active naloxone (NARCAN) 4 mg/actuation spray,non-aerosol nasal spray (4 sources) Start: naloxone (NARCAN) 4 mg/actuation spray,non-aerosol nasal spray Administer 1 spray (4 mg total) into alternating nostrils as needed for opioid reversal. 2 each 04/06/2024 Active norethindrone acetate 5 mg oral tablet (1 source) Start: End: take 1 tablet by mouth in the morning norethindrone (AYGESTIN) 5 mg tablet Take 1 tablet (5 mg total) by mouth in the morning for 30 days. 30 tablet 06/11/2024 07/11/2024 Active ondansetron 4 mg disintegrating oral tablet (20 sources) Serotonin-3 Receptor Antagonist Start: End: 4 mg, Intravenous, ONCE, 1 dose, On 02/24/24 at 2100 Start: 02-16-2024 End: 02-16-2024 4 mg, Intravenous, ONCE, 1 d ose, On Obdulia 02/16/24 at 1430 Start: 01-22-2024 Ondansetron 4 MG Tab Dispersible tablet Place 1 tablet under tongue. 01/22/2024 Active Start: 09-06-2023 take 1 tablet by melodie th three times daily as needed for [...] day(s), # 12 cap(s), Refills(s) 0, Pharmacy: [facility]/pharmacy #[id number], 165.1, cm, 04/24/23 13:32:00 EST, Height/Length Dosing, [...] 12 March 29, 2023 polyethylene glycol 3350 55684 mg powder for oral solution (2 sources) Osmotic Laxative Start: 09-26-2023 End: 10-03-2023 take 17 g by mouth once daily Miralax 3350 17 gram packet 17 gm, Oral, Daily, X 7 day(s), # 119 gm, Refills(s) 0, Pharmacy: [facility]/pharmacy #[id number], 165, cm, 09/26/23 14:18:00 EDT, Height/Length Dosing, 81.2, kg, 09/26/23 14:18:00 EDT, Weight Dosing Start Date: 09/26/23 Stop Date: 10/03/23 Status: Ordered Symbicort 80/4.5 inhalation aerosol with adapter (7 sources) Start: 12-04-2021 Symbicort 80/4 .5 inhalation [...] sources) Start: 03-25-2020 take 1 tablet by melodie th once daily Vitamin C 500 MG 1 tablet Orally Once a day Mar, Active Womens One Daily - (10 sources) Start: 03-25-2020 Womens One Elle ly - as directed Orally Mar, Active Completed/Discontinued Medications Medication Drug Class(es) Dates Sig (Normalized) Sig (Original) [id number] 200 actuat albuterol 0.09 mg/actuat metered dose [...] 30 mg oral tablet (7 sources) Uncompetitive Z-qcjbci-[place] te Receptor Antagonist, Sigma-1 Agonist Start: 08-11-2021 take 1 tablet by mouth every six hours as needed [place] DMT 30-30 MG 1 tablet Orally q6 [...] 75 mL, Intravenous, ONCE, 1 dose, On Tue02/16/24 at 1615, Extravasation Risk, Radiology Procedure Multivitamins-Iron tab (7 sources) take 1 tablet by mouth once daily Multivitamins-Iron tab Take 1 tablet by mouth once daily. 0 Active Comment on above: Take 1 tablet by melodie th once daily. naproxen 500 mg oral [...] unspecified] Onset: 04-21-2021 Resolved: 04-21-2021 Chronic Endometriosis (20 sources) Endometriosis (clinical); Translations: [Endometriosis, unspecified] Onset: 03-29-2023 03-29-2023 Chronic Endometriosis (2 sources) Endometriosis; Translations: [Deep endometriosis of ovary, unspecified ovary] Onset: 04-06-2024 Fever of unknown origin (10 sources) Fever, unspecified; Translations: [Fever] Episodic Inflammatory diseases of female pelvic organs [...] conditions (not mental disorders or infectious disease) (5 sources) Other specified abnormal findings of blood [...] unspecified] Onset: 04-21-2021 Resolved: 04-21-2021 06-20-2019 Episodic Disorders of teeth and jaw (9 sources) Toothache; Translations: [Other specified disorders of teeth and supporting structures] Onset: 11-08-2023 11-08-2023 Episodic Fluid and electrolyte disorders (17 sources) Hypokalemia; Translations: [Hypokalemia] Onset: 01-27-2024 06-20-2019 Episodic Nausea and vomiting (2 sources) [...] Test Name Value Interpretation Reference Range Facility CHEMISTRYOrdered By: SYSTEM SYSTEM on 06-24-2024 Albumin [Mass/Vol] 4.6 g/dL Normal 3.3 - 5.0 gm/dL [facility] Albumin/Globulin [Mass ratio] 1.1 {ratio} Normal 1.1 - 2.2 [facility] ALP [Catalytic activity/Vol] 79 [iU]/d Normal 21 - 98 Int._Unit/L [facility] ALT No additional P-5'-P [Catalytic activity/Vol] 17 [iU]/d Normal 6 - 46 Int._Unit/L [facility] Anion gap [Moles/Vol] 13 mmol/L Normal 6 - 16 mEq/L [facility] AST [Catalytic activity/Vol] 21 [iU]/d Normal 5 - 43 Int._Unit/L [facility] Bilirubin [Mass/Vol] 0.3 mg/dL Normal 0.0 - 1 .1 mg/dL [facility] Bilirubin.direct [Mass/Vol] 0.0 mg/dL Normal 0.0 - 0.4 mg/dL [facility] Bilirubin.indirect [Mass or moles/Vol] 0.3 mg/dL Normal 0.1 - 0.9 mg/dL [facility] Calcium [Mass/Vol] 9.9 mg/dL Normal 8.9 - 11. 1 mg/dL [facility] Chloride [Moles/Vol] 107 mmol/L Normal 101 - 1 11 mmol/L [facility] CO2 [Moles/Vol] 23 mmol/L Normal 21 - 31 mmol/L [facility] Creatinine [Mass/Vol] 0.7 mg/dL Normal 0.5 - 1.3 mg/dL [facility] CRP [Mass/Vol] 0.5 mg/dL Normal <=1.9mg/dL [facility] em eGFR 114 mL/min/1.73 m2 Normal >=59mL/mi n/ 1.73 m2 [facility] Globulin (S) [Mass/Vol] 4.0 g/dL Normal 1.4 - 4.0 gm/dL [facility] Glucose [Mass/Vol] 116 mg/dL Normal 55 - 199 mg/dL [facility] Lipase [Catalytic activity/Vol] 29 U/L Normal 13 - 58 unit/L [facility] Potassium [Moles/Vol] 3.9 mmol/L Normal 3.5 - 5.3 mmol/L [facility] Protein [Mass/Vol] 8.6 g/dL High 6.0 - 7.8 gm/dL [facility] Sodium [Moles/Vol] 139 mmol/L Normal 135 - 145 mmol/L [facility] Urea nitrogen [Mass/Vol] 6 mg/dL Normal 5 - 21 mg/dL [facility] Urea nitrogen/Creatinine [Mass ratio] 9 mg/mg Low 10 - 20 [facility] HEMATOLOGYOrdered By: SYSTEM SYSTEM on 06-24-2024 Basophils/100 WBC (Bld) 1.2 % Normal 0.0 - 2.0 % [facility] Basophils/Leukocytes Auto (Bld) [Pure # fraction] 0.0 E9/L Normal 0.0 - 0.2 E9/L [facility] Eosinophils (Bld) [#/Vol] 0.0 E9/L Normal 0.0 - 0.5 E9/L [facility] Eosinophils/100 WBC (Bld) 0.4 % Normal 0.0 - 8.0 % [facility] Erythrocyte distribution width (RBC) [Ratio] 19.4 % High 10.9 - 14.2 % [facility] Hematocrit (Bld) [Volume fraction] 37.3 % Normal 34.0 - 46.0 % [facility] Hemoglobin (Bld) [Mass/Vol] 11.8 g/dL Low 12.0 - 16.0 gm/dL [facility] Hypochromia Auto Ql (Bld) PRESENT *NA* (06/24/24 8:42 PM) Invalid Interpretation Code [facility] Lymphocytes (Bld) [#/Vol] 1.3 E9/L Normal 1.0 - 4.0 E9/L [facility] Lymphocytes/100 WBC (Bld) 30.4 % Normal 14.0 - 50.0 % [facility] MCH (RBC) [Entitic mass] 22.8 pg Low 27.0 - 34.0 pg [facility] MCHC (RBC) [Mass/Vol] 31.6 g/dL Normal 31.4 - 36.0 gm/dL [facility] MCV (RBC) [Entitic vol] 72.2 fL Low 80.0 - 100.0 fL [facility] Microcytes Ql (Bld) PRESENT *NA* (06/24/24 8:42 PM) Invalid Interpretation Code [facility] Monocytes (Bld) [#/Vol] 0.2 E9/L Normal 0.2 - 1.0 E9/L [facility] Monocytes/100 WBC (Bld) 5.8 % Normal 4.0 - 14.0 % [facility] Neutrophils (Bld) [#/Vol] 2.6 E9/L Normal 2.0 - 7.5 E9/L [facility] Neutrophils/100 WBC (Bld) 62.2 % Normal 36.0 - 75.0 % [facility] Platelet mean volume (Bld) [Entitic vol] 7.6 fL Normal 6.4 - 10.8 fL [facility] Platelets (Bld) [#/Vol] 563.0 E9/L High 150. 0 - 500.0 E9/L [facility] RBC (Bld) [#/Vol] 5.2 E12/L Normal 4.3 - 5.9 E12/L [facility] RBC size Nom (Bld) SEE MORPHOLOGY *NA* (06/24/24 8:42 PM) Invalid Interpretation Code [facility] WBC corrected for nucl RBC Auto (Bld) [#/Vol] 4.2 E9/L Normal 4.0 - 11.0 E9/L [facility] HEMATOLOGYOrdered By: Lissette Segoiva on 06-24-2024 ESR (Bld) [Velocity] 35 mm/h High 0 - 34 mm/hr FT HemeAutoSS SEROLOGYOrdered By: Levi welcholaalina on 06-24-2024 HCG.beta subunit (U) [Moles/Vol] Negative Normal [facility] Sero URINALYSISOrdered By: SYSTEM SYSTEM on 06-24-2024 Bilirubin Ql (U) Negative Normal Negativemg/ dL [facility] UA Auto SS Clarity (U) Clear (06/24/24 11:36 PM) Normal Clear [facility] UA Auto SS Color (U) Colorless 1 *ABN* (06/24/24 11:36 PM) Invalid Interpretation Code Yellow [facility] UA Auto SS Comment on above: Interpretive Data: M icroscopic readings are only performed on those samples that meet specific criteria set forth by [facility]. Glucose Ql (U) Negative Normal Negativemg/ dL [facility] UA Auto SS Hemoglobin Auto test strip (U) [Mass/Vol] Negative Normal Negativemg/ dL [facility] UA Auto SS Ketones Auto test strip Ql (U) Negative Normal Negativemg/ dL [facility] UA Auto SS Leukocyte esterase Auto test strip Ql (U) Negative Normal NegativeLeu /uL [facility] UA Auto SS Nitrite Auto test strip Ql (U) Negative Normal Negativemg/ dL [facility] UA Auto SS pH (U) 7.0 *NA* (06/24/24 11:36 PM) Invalid Interpretation Code 5.0 - 9.0 [facility] UA Auto SS Protein Ql (U) Negative Normal Negativemg/ dL [facility] UA Auto SS Specific gravity (U) [Rel density] 1.003 *NA* (06/24/24 11:36 PM) Invalid Interpretation Code 1.005 - 1.030 [facility] UA Auto SS Urobilinogen (U) [Mass/Vol] Negative Normal Negativemg/ dL [facility] UA Auto SS URINALYSISOrdered By: Ritesh bishop on 06-24-2024 UA Spec Desc Clean Catch (06/24/24 11:36 PM) Normal [facility] UA Auto SS Work Phone: Coding Summaryon 06-23-2024 Coding Summary HTMLBase 64 HlovbdfxXNu5tTf+PGhlYW Q+KO2HLXYhF92jqUPvuN3r I4JGQZsKBnxyLLQPQIkOTj YrvhHsDC2chHElULCw IC8+MQ0iTFQpAexpjYSfd6 F6cBT1W47wel5vKNhckJC5 YBVkHbGfbcgxd2kaxAh5EW cuNmluOyBt EFHggU87MGX2zY76Pk34zD KefIGzu4zzyRx8WrAgGLZj CIG2vIvgFRqbq0YhDFBcT1 7gmXHul0X2 UWFklIscwXAjNxDoaOG9aZ 5kAQeymivbe5yygbajTlz9 sl91aQCbz2N9oIP3K1Acyx U2LKQypJHc NoieuSBNwE7lsyvsx0ytnd jrNrYcJFYvWIc4JUj0UHNr aVmsKrTbUW18APE9FQXvyb OrS2TvRKQx rVafRzM5o1R4Un4TH9MBEo kyH4POHKVYEXowcNE+PC90 xr97T5QbHrvlTjs2NARfLT G1zCT1dS8m MDZaANfop0X6kRV7P2Iogc Dmsq3nw3wdHLNbGJuaW32c aPWjs2C1LMDwgQR3XRWczX yyIsDqfY60 Oyc+KPYhyNepd2DgVcuiv7 evr4dsnOf6CqilCOEboxDp mWlqUHV9l7DdZx8aRHVruW C1pNJ7uL8w EiIhHwP8WAcxQ491SnCjnP SzWvgyQ82aT4RmsIW+PHRy Qpk8UGYofZugKB1fG9KqQP RpbmctbGVm uYsxCE6sXXEylpekDJGceJ 2lVWBpH0q2HpJiQaC4GNuj G6IiQPHfunauOe09rK7aSj YpIsY8KLbc H4IatqH6BXQicJAmTAbtLE E8C64vx2V0NJVpMLVeESK4 wLD1rL9plJtaiwxweLOzuK sgdmVydGlj GDpoJJgiS840HMAprSgaQi NvZGluZyBEYXRlOiAgMDEv MTEvMjAyNTwvdGQ+PHRkIH X9pHnoQWRe xPHtCWyfSq6dqNipfHwePJ 5lHWYldmsyXFGqdS0rUOVc qADgoPamIG4cBXFowxuxa6 04YwUpXVA9 UWOghZUbY6UcvT4mAyLmXU XwWEZyB8BplDUqCLcwA953 VMemImD9QONcngYaX0MsFR FsaWduOiB0 w9C7Xj0Qe0JfnogyF8UfuM QgKeVcNvbeHWi5B5XnBwmf dHI+XG98SSLbCX29PCi0JG Q1fUoqHRgo TELeF8JecR5lNlQgECSqYP RkOyc+PHRhYmxlIHdpZHRo JOpgJUMtTlGgsIurMC3yUg 9yZGVyLWNv tLndsEDfXkMjx4naWRDtAH anCD7igVufS0CwpOW4WZXg r7n1Ym04U90rR1RzaQV+PG TppSW1yAK9 eQ9fGcXcBrK0NQkwP312Yb UvvIOtBuwpg1urx9iluJu3 ZgN8NTRlfrIevCkjJRW0o5 RtHz70O58r IHdpZHRoPSIxNSUiIHZhbG kaxx9lvX4vNb6+PGNvbCB3 pEK8hW9oYuQmQiH3MWiwP2 49InRvcCIv Yjpsr1niy1vmoHd7XwQqNN XaoeKaeTvvUOM1y7DrJv72 S7NpzKutb7RaVnx3xe57fA Gnk9Q6eYH1 N7HxDUErbxltnWLxjZixBW 8mMWPwyjecGZTvwH7nNYOs D4h9XdCxEbI4VJdnG6Erqu Q8XPTqcSVq OCHqeTYHdF4hymata2jrta hbGkJnJVFxKYw3EFc3QKFr fWuyGuNqSEK9LaS0WNE8aR QnoC8zgMkb tqkmvM6lRql+CBX8wBCzoF DLEX1nGzknhWT+PHRkIHN0 oTbdCEsiRORidN0sNNAxD4 y2JjPqSqS4 YRldR6IqzmF5UQZbeJGfKN BljEKRhB2peymre9vsbibw FqGqJYBmSCg2KEf3ENLvtK duOiBsZWZ0 VzH6WKS7vXStfS7exPqwwq ikaC9sBgc+QmlydGggRGF0 MLc5Y4ZuRhk4SPOniRbnQK 0ncGFkZGlu Nb8huBhaxBosQJ1aCNCijm xwq923TlXkt7ffFNAdfJDf ANraYND9R35qd8K0INMwVP ImLBD3rBB8 yN7eqMjxgvaxlKLvuRosuk RoaEwuYChqQBetK908JNMz eJuuMhEdHNq1V3IpXah3HF KfgBzmWX6d nLDdEIweXq8tyJynkAszUI 7qCGHyyjehu536JbTgr6uc PVTcsWYkRZjiWHS0T54jv5 E9MYXbCVBe ZYX2gJF7hZ5oiGlctzyzlD VmdDsgdmVydGljYWwtYWxp X135ZBHjgUexFxSyaUg1U4 EgIuv5GOOg yFdeDG7pzFAfXMnfLb0geC bvkBhrXN1gIUBlscpby518 IpJul8ijXJVvvMFxWPraAP B0V94cz6B6 FCYnXFEbXQR0wMP5sT2wmX lnbjogbGVmdDsgdmVydGlj QTaxYInxN944DQIdbTmwIk BhdGllbnQg CHinTId0C4PcMdpmqAC+PC 28YDTxNG36kWXyvSCcv5uj rEz9EgJnGMXqCTQ0oBmcOG ljv2IfHHEt X29bcYGzs4U3CNSsyRnzvN LpKkWsdPU0pE5gEOcaaknd j3bkupioXhcqm9ceav50gM 61N14xUNbz ZHRoPSIzMCUiIHZhbGlnbj 6agG2mBu2+RMNfqEX3lFG1 pU9pBGYjHjC8UGyaW077Sd RvcCIvPjxj s1psj6rigTd5VeN2EUVahj WhhHfzNKF7s1TrUu25K14m IHdpZHRoPSIyMCUiIHZhbG ceal2ngU4w Ii8+VBNxzFO3iCN9sF6nXx AmGiI4LHguR866QgWyxDJv PrjuN41pT9PanSI+PHRyPj f2JHKpiMvc ST1uwMKtRMzyDc1bDAK7Kl KsOlErTYujQ4ImWSAifuej uiqdvKG8WBFeVNAfdA13Px 9udDogMTBw nCSIpV7piflue6ttlcocNt LcPGJdXVb5ZUi5DWEodNgn GoEoSRS4AmG4OQC1nWQwuX 1hbGlnbjog iG9cZ6SdYPWvvqirRr08jC 8nXfZcLaR8EEtuTio+SE9X QVJELCBTVEFDSUUgTEVFPC 21VZ21iEPe f5U3lAQ0E3YuMAGzktxkyy xgeDG2TKHmCEMihK89iPOs GJcwZc0wj6S2c444DRVqOS BfcH47Br1z kVynAEMyrZSLwB2vcjkil9 fajwevGkHsKSTnYXk0RZy5 QZXljDycOrAoVDN0GiJ9JE E9xXYfjL6b tDrefeismI9lIgx+MDcvMz PfWXz7RueorSV+PHRkIHN0 qJghKZpdRVHtkQ5rKMXrY6 f6GzTcSyI1 TGxcM1WxIZCjjtuiGy06dR 2pEjYxAhF8PZssR2HchdV1 MJCwlFNjVWrjSSX2A39dd3 A3DAXeOLGr MYP7zVQ6gO0dfDllgwxmmG VmdDsgdmVydGljYWwtYWxp V001AANdoCjwZpD2ZEglKR BuUO43EA90 bKVkt1Q8vDX1J0NoCMWnra sjjpsvnNU1NEFtVOXdvB12 aCZpUFeoQc8ku7N1q185PA EvYRVckT77 Yc7epUqaKQJgbWRXrJ3olc wyi8pjxzyjWdJnUUDpHDj6 LVc6RDJfvJtbHwVlBCO2Jx F6ZKP5tLEu oH8zwWqfxsthoR5kUru+Rk WFJLtZIV08VK69zMEet2A8 wEK7P9AdTVVuarhcjtmtzO W2LJFiDWRp rY08eLNkIYhqHh2uo0J2j2 60DFYtOBDbeD81Ei1hjFlr TXHutYECpP8vlgkeg8iojq ogIzAwMDAw TAv7ZDx6OCTmeNthJuBoKD M3EjN3SPK1eUBetA0zaYhf mztnpF3fGip+VM8fyqipda L5ML69MU53 G6NtQlaqbVXbvWQ+PHRhYm xlIHdpZHRoPScxMDAlJyBz aAzuNR5xAz4kBDRaVDVxwY xhcHNlOiBj x2lgGCGfQUozDQ5srJtfT1 QuuLG1AUJoy8n6Yt59G15r O7KmvVP+HWUpuCR4oFI3dE 2rGjSjZaE1 CDujJ491VzRelJAoSjccu4 qsz1mrxWv3KxBaJHAtxzFu dIazLKO9p7ClUb48T51rZN dpZHRoPSIy OPUtWEIyaMyllo8psY2yGa 8+JBVslAD5uKR6iE4zYeFg LxU5VLlnI685FfIfzXZaNz rlX94eZ1Ow dXA+OZMpPbb6EBUmzYuzQA 3zmERfKGlyRc2dIUL3IfIi NkBwPXtyQ5ChPPKwlrsopa vieTF7EHFy FRXjwO88Zj9seBoiUx6kZX BqGHD3LTPyfIDlT1VgmT2j YxTuMZVsMLNpI4XtgUWbVF iiZ937IOft MzH8VOOwtyWyT6FzJVOcvD plZbI6a0F0Kl4OrTuglJGy QD6xRbXyJWv8B3TlTmb5WH TuhWfxIX0n hFZlVXgyNi5weKlneDfjYR 8zVXNpleljl134UsGvx8yl LSTlaYThCJxaVFY4C77cn1 H6XTFdLWWv AHB9pVJ4sF7ntFuridphhH VmdDsgdmVydGljYWwtYWxp B894AVNtgFbbQoVHEpu5K2 PcUxn0HXPp yOluFV0fwZTeRMwaTu8vbT dglWwnWH3kIXIewbtlb397 HiVdn4fySYYdfKNhEFrqTN R1P89xs9Z0 AWAgZIUyTOO6hSC5kU5enT lnbjogbGVmdDsgdmVydGlj AMgjFCkyW808PSJiuWfhUz 6KJph6D2Pu Vqb9GHEatHkrSM5udPDiNB ijUz0reZdvaInsHN6mZFNs mjlfj507IeDzp6wcODIweA QgVGltZXM7 W83dh8H6QGMhHYIlWPQ9hL G4xN9ydXepjxxlwJKhiVzb umKksLvjWOpeSUpdU669NI RvcDsnPlBh eWVyOjwvdGQ+RK00nl67X5 XdRnitGuh7IYPlACK7dTG6 yU6eUDEnXQjvt3L2yQO8J5 TqppKqqc6m b2x (more content not included)... [facility] Coding Summary HTMLBase 64 EpbhkxtlEFf8tIx+PGhlYW Q+KS4SRVEtG59wwMDfeO9b Y0OCRGqAEuctVGSKEUnXBh VfcyKwZH9pcJAwYNIj IC8+FE2qKZKzOjdihGCsr7 P2jKC6J23jls0rZJyiqPR3 MHSiBkLlizdey0vuzTo7OG cuNmluOyBt OMPgwB02EUJ4cO68Nn04hZ KjvKCgl2oymQs4MaWhKXRy VSL2zNeyYFbgf8GjYPOfX4 4geOBqr8S3 KYAmkSvwoQKaHaYfhFS9hX 5rGAiewvzdi8txyepmTwt5 mh97mMKss3A6sUZ8B6Lblt E4FFJkeAGi ToksiUMAxA0hmjfwm2arjy vwQdDqCIVcERg9GQz7USOf qVgeDkQzTQ12HDU2RBKtur IfQ1CtKHYt jUnpZsQ4t9N7Uh7EE9JQCt ngN2WLWZULTQnooIE+PC90 om35K8KwGflzUby6TUCuHA G9sHY4oR3r WGXvKQmnb2G9rWN3C7Uymf Girv3jz4dgMDZuERsnA66e hLFnt2I7KFUwiTG7JZGtcP nfMeJgaV90 Oyc+CINhePlwb2JvHsxlm8 mpv4fdjPz8MrbiDLAeqlRv nPkoTQX4r6XbZa3zIFYeiW D7iVX0uT7p DuVmKdD4FPuvE742AyWqkG MkDlmrR66hD9OxmRH+PHRy Jkm5CIDvuIdyTL2cF4NgSU RpbmctbGVm xKtzRB1xSJGkgnybTPOjdH 9iMSIgE4o7AsTuBhM4VXhg B8ArAQPkhmowWd57gA5dLa FaQgQ6CDnq O1YbojC7UYDbnUEeZDmdEJ T4P65he0M1IGJzGXUoPMO6 xFR2oG2lyVvvnbvrpXNroN sgdmVydGlj TUrjMGmeF086CMBtnRecLk NvZGluZyBEYXRlOiAgMDEv MTEvMjAyNTwvdGQ+PHRkIH E0cTxiJBNn yTZvEKwgUq8kiCgezJveMD 2vMUKzxfzdNHCkrV1tPGCm jZRqiGpyVY5wTSRmtwiwg6 13NsVkLYZ0 IODdmUVzK6KewY2iDmBnUK BuVSGmL2PogZWyZByeC088 XYujRsF4YXVljdJtD0GtQP FsaWduOiB0 r7S8Sf2Yo0GnlaheR2TxuW EgKlPuNspbSHs2X9DhOwet dHI+HB08QSAsSR58PYj3CO B0rAroZJhe SXCsO3HmzA7tVoYcJQGpLE RkOyc+PHRhYmxlIHdpZHRo FDhpBLCtMrNpvJqgNJ7fJy 9yZGVyLWNv bZsiwNBeGbJdh7deKJHlGJ qaDA8lcTwdI2BftNJ8SQGa a3d2Bo66V72wM0QkzHV+PG OqbMC5fNA8 oH9xVwPsZqP8YHvjB091Bl SfeUTvZgjlx6jls8vvpMe2 LxQ4XOPsnvXbvBslLUL4r4 FhUk77W84k IHdpZHRoPSIxNSUiIHZhbG tiin6fcQ6fGl3+PGNvbCB3 iKO4sW5jPfAfLiT2KZnmE5 49InRvcCIv Ytamc3bmg6pctOv8OeQsMI OkehCvmWylNAY7x6MeAn07 F7CmlHawl2IbTcl8qz75cY Edv2Y5dHH4 O4FbPUViyhlkcKMhmHowED 7sWCKydwqdDRNioP7bWALb E3p7VdYfCzR7GXwfP4Auls Y1PYVggOIt XAXkpNQOfZ8nseeik6gmwq kzVqOxCQCuIDq9FAx9NLFg mXftYrCuZHB9EfY4AHY7hC JzsC4zjOrf mviyfG2uImr+YTT1uTGngL LBXK4hAqdgqNI+PHRkIHN0 cHvsGEqhVXFjqD2pOZCzB9 v1JzEeLeU7 KSarD5WqhjW6UOEnvJSgNG SaiUPIoR3gzppaz9cpgbck DtQiNEMgZEg2VPm4PIEizO duOiBsZWZ0 QnF9KBX2vYUbnH8phAxvxd wohX2rOpm+QmlydGggRGF0 WYv8X2KfRjj5MVGxvWmlDH 0ncGFkZGlu Gz4piTadzImoEE9cKPRwiv snk817ZoSxu9izPDPaeJAy XRhmJTH2W54zs0W0BHVuTM XpWZM3qNY3 nE7jpBnmlgacmQPswMhatw JttHfjRRcbUCkdA540KRSl wTfrDmCwPGj2O8ZqOrt6VX VvjYpmDA6j kRRbNAicBa7dmNcpvKmxID 5zTKQhvkiph569YiJrf6lc FAUopPYyBFabOHC4F01xv8 E6WNBfOERb WEP5nBI2mQ3isHhaznpbsS VmdDsgdmVydGljYWwtYWxp Z823TWFeuXjnUvOwaDo1U1 TzGun5ZDHv eQzkCC9fxHLvPMntHa6npC lcwBjqDJ6oSAIvhrexf526 KvLou5omETCquJViILeaTF P6U20hn9Z8 EBSjIBEaCRS5aQT0rY0chI lnbjogbGVmdDsgdmVydGlj AGsfSYaeZ868XVEopLzjHw BhdGllbnQg ZNwgKJp5M7OtCthfuVM+PC 24AEDbUE88gEYxxYAbp8uz dZv4RxVoRXTrKYH9aVqyJJ fge0CzUGBf P14wiFSnc8R2NNBtbFdctT YhIwXyiVC7zV4oPSkfhawe e9ykqavlKwiao0fdzh79zV 87F94cIZaw ZHRoPSIzMCUiIHZhbGlnbj 0qpZ0fKi5+ILBuvWS8zQN8 fO0iVEUhWpL1QJpvB354Hh RvcCIvPjxj j4jei8ymaRj5FnY9ENQcjk OhzYdmTWV5n4GeQp44H36d IHdpZHRoPSIyMCUiIHZhbG ngbh5uqT5t Ii8+IPQniFZ1uKQ9qK8aAu AoYvS6IEluR470JdJjqCZk QsizN90eK0UrtUV+PHRyPj k2MYFnjLlt WZ6anTUaJVtqTt1fCHU6Xj AlBlDxJVtyP9SlDHBirixv pdfifRW0BPBjNZBtlD75Xi 9udDogMTBw uRPGvQ7rginjo6barlbwVc XbTOYbJBq4AZe4VDPebVzt RgUcKZE0LaQ2VNB3pZAwtC 1hbGlnbjog lB6nL0OsJUSocsxqQw05uJ 5pCkXuLwF7QVzeCmx+SE9X QVJELCBTVEFDSUUgTEVFPC 83VW88hMWy n4V8rMH5D7WuUELqgkkfnt bddOA3XXJhIRYbjU95wOUa UYwxOw3gz8X5s754MWVsPO HtlB99My3x tLmsWVGusNSEaJ4zhkckh9 gelfqcKxAuWVAqWSj5VHr6 TNGwnFcwQzQxRUE3LjV2OE F6dZQobO0x dWvdylszxR0iAao+MDcvMz GyJYb7HbbcuXR+PHRkIHN0 hOlkBCptOGWewE5pFWSgJ2 t7IaEhAuY6 CHszU9SvBPAcoxnhUr37wM 5lZySaCoA8SSdnA0FouhJ1 EGWlyOTxJTolUDA7D30bi9 F7FVYpHIRf FFQ0oZG7uO5nxPymvquwrG VmdDsgdmVydGljYWwtYWxp C864XQUyjHzhFcN2TFhfSL DgQA41EG55 oBCjw8Q1gDF4S4AqGIAhxd dweyrcgXW3IREzVZTurL78 iCLgKUlqMj0zl4K8v485GZ WkOOGcfX35 Mp5hiEqhEPWgxKHMcH9yxz xrx8wsapnaFjXwCWHaOBu8 TGd6URMehYxxZiQoVTD9Uh R1UNC7qCRj dY8pnZcgovpywK4eBvf+Rk ZBVAlZEZ80IP81cSLlo0Z1 mXK7C4SqSVAvpmiasekonL B7QFKoDGFo sA86sOYgOWqdLi1tj7J2g2 67QLPfQCXmaR83Rf5ksUtt JZVacYNCoC3stsicu1jjvg ogIzAwMDAw WIj8PUe7IQNopRufPsMhEJ R7MbU4TOA1oXXbxK6uoFcg dfpxeQ0fWwy+CL4dyaplpj I6HY24TQ96 J7HbSieguMEgdCI+PHRhYm xlIHdpZHRoPScxMDAlJyBz xWqfXC8wGp8oBMDsWDGncL xhcHNlOiBj j3oaURDzGFfnFF6glTdiG7 UecUV3JZQxd9i5Zh62O47g L8CsjYY+QAFijUS5fTU2hN 2kZwLhRlQ1 GAmyE870QsVheEKyChsrd2 tfa4xvtZa1XmHgODXfmkQe gKfwZXZ7j7IsUd04M22dXR dpZHRoPSIy KLPeLXRifYqqus0ssG4qPw 8+EZNpbLD2oEE7rE4vIdFf MjO6WBxhV204JjZruOXoZw aoI46nV4Uo dXA+MPCmRgy1GXMdkGehJL 1beNXrOCcpVe0sXVE0UpWy CjDyHLnhZ0JtCAAuawuteo qweLS4XCMf MEWjdF01Pc4stZwlUg4jFX QuJUG1IAFmpSWrC7OivS7u EqPlEBAwATPqO1SwtSOtNZ siT507EDnj FoJ0GNGnklXbW3TcZWFadF uwOwQ1t7K8Hh4WyPrhfVMm YN8lKhPqIBh3Q0XbDsl1WR WuaOxzQK7r dHDxHEhsJg3ypAxytRodZX 8uANPazjwby971MzCkm8bo KTKcpDQuLNjdWMY4L97uu9 L5MNZoTLCi QFV5kHP7uG2tyAhtgjdufY VmdDsgdmVydGljYWwtYWxp O319IMPopTzsQpDFEeb6W0 MePrg4UYHw vPsiWV1alPIiNEzaGx8mwE gceHoiSP0aMOKpryfhi188 FdXlc5hcRESlfDVwWFvjSK M1J21dw0L0 BCSfIQSyEKI5nPU4zC1rfQ lnbjogbGVmdDsgdmVydGlj ACqhROykT079KVBuoAudQa 5OIos0I7Cb Ezm8MAKlwThnYQ4iiUAoBY ryBr9jyFeciIqqZS2fXXLi cusbs540CyUce4cjNKAfpP QgVGltZXM7 K44wg0I9JCTvZAZrVGW3iG Z4wK9kvRjsgwmlbUWqdIxj cmBetZpdGXvgSTwyN721IQ RvcDsnPlBh eWVyOjwvdGQ+IR13rh53E7 LvPkvmIxi6TLAhQDY8pXY8 xL7uFIRfOCefu6Q8mWF9Z6 EhobGhao1a b2x (more content not included)... [facility] Release of Informationon Release of Information [id number]#[address] [place] [address] Consent Formson 06-12-2024 Consent Forms [id number]#1.[address] [place] [address] .Auto Diff 1on 06-11-2024 Auto [place] % 6 % Normal 06-24 [facility] Comment on above: Performed By: #### 7 [id number], [id number], [id number] #### [facility] (DEFAULT) [address] [place] [address] 34329 Baso Abs# 0.0 x10 Normal 0.0-0.2 [facility] Comment on above: Performed By: #### 7 [id number], [id number], [id number] #### [facility] (DEFAULT) [address] [place] [address] 27729 Basophils/100 WBC (Bld) 0.7 % Normal 0.2-2.0 [facility] Comment on above: Performed By: #### 7 [id number], [id number], [id number] #### [facility] (DEFAULT) [address] [place] [address] 10167 Eos Abs# 0.0 x10 Normal 0.0-0.4 [facility] Comment on above: Performed By: #### 7 [id number], [id number], [id number] #### [facility] (DEFAULT) [address] [place] [address] 91988 Eosinophils/100 WBC (Bld) 0.8 % Low 0.9-4.0 [facility] Comment on above: Performed By: #### 7 [id number], [id number], [id number] #### [facility] (DEFAULT) [address] [place] [address] 06581 Lymph Abs# 2.0 x10 Normal 1.3-2.9 [facility] Comment on above: Performed By: #### 7 [id number], [id number], [id number] #### [facility] (DEFAULT) [address] [place] [address] 71579 Lymphocytes/100 WBC (Bld) 37 % Normal 14-48 [facility] Comment on above: Performed By: #### 7 [id number], [id number], [id number] #### [facility] (DEFAULT) [address] [place] [address] 14791 [place] Abs# 0.3 x10 Normal 0.0-0.8 [facility] Comment on above: Performed By: #### 7 [id number], [id number], [id number] #### [facility] (DEFAULT) [address] [place] [address] 28183 Neut Abs# 3.1 x10 Normal 1.5-9.2 [facility] Comment on above: Performed By: #### 7 [id number], [id number], [id number] #### [facility] (DEFAULT) [address] [place] [address] 84068 Neutrophils/100 WBC (Bld) 56 % Normal 44-88 [facility] Comment on above: Performed By: #### 7 [id number], [id number], [id number] #### [facility] (DEFAULT) [address] [place] [address] CBC w/ Auto Diffon 4 Man Diff? Auto Normal [facility] Comment on above: Performed By: #### 7 [id number], [id number], [id number] #### [facility] (DEFAULT) [address] [place] [address] Erythrocyte distribution width (RBC) [Ratio] 20.0 % High 11.5-15.0 [facility] Comment on above: Performed By: #### 7 [id number], [id number], [id number] #### [facility] (DEFAULT) [address] [place] [address] Hematocrit (Bld) [Volume fraction] 35.5 % Normal 33.7-40.4 [facility] Comment on above: Performed By: #### 7 224020, [id number], [id number] #### [facility] (DEFAULT) [address] [place] [address] Hemoglobin (Bld) [Mass/Vol] 11.3 g/dL Normal 11.3-15.9 [facility] Comment on above: Performed By: #### 7 [id number], [id number], [id number] #### [facility] (DEFAULT) [address] [place] [address] MCH (RBC) [Entitic mass] 23 pg Low 24-34 [facility] Comment on above: Performed By: #### 7 [id number], [id number], [id number] #### [facility] (DEFAULT) [address] [place] [address] 66325 MCHC (RBC) [Mass/Vol] 32 g/dL Normal 26-37 [facility] Comment on above: Performed By: #### 7 [id number], [id number], [id number] #### [facility] (DEFAULT) [address] [place] [address] 40744 MCV (RBC) [Entitic vol] 73 fL Low 81-100 [facility] Comment on above: Performed By: #### 7 [id number], [id number], [id number] #### [facility] (DEFAULT) [address] [place] [address] 63414 Platelet 432 x10 High 138-427 [facility] Comment on above: Performed By: #### 7 [id number], [id number], [id number] #### [facility] (DEFAULT) [address] [place] [address] 31053 Platelet mean volume (Bld) [Entitic vol] 7.8 fL Normal 6.3-10.2 [facility] Comment on above: Performed By: #### 7 [id number], [id number], [id number] #### [facility] (DEFAULT) [address] [place] [address] 25740 RBC 4.87 x10 Normal 3.70-5.30 [facility] Comment on above: Performed By: #### 7 [id number], [id number], [id number] #### [facility] (DEFAULT) [address] [place] [address] 04738 WBC 5.5 x10 Normal 3.5-10.5 [facility] Comment on above: Performed By: #### 7 [id number], [id number], [id number] #### [facility] (DEFAULT) [address] [place] [address] 07453 [facility] Standardon 06-11-2024 eGFR Non AA >60 Invalid Interpretation Code [facility] Comment on above: Performed By: #### 7 [id number], [id number], [id number] ####[facility] (DEFAULT)[address] [place] [address] 29411 eGFR AA >60 Invalid Interpretation Code [facility] Comment on above: Performed By: #### 7 [id number], [id number], [id number] ####[facility] (DEFAULT)[address] [place] [address] 73572 Albumin [Mass/Vol] 4.2 g/dL Normal 3.5-5.0 [facility] Comment on above: Performed By: #### 7 [id number], [id number], [id number] ####[facility] (DEFAULT)[address] [place] [address] 93457 Albumin/Globulin [Mass ratio] 1.0 {ratio} Low 1.4-2.6 [facility] Comment on above: Performed By: #### 7 [id number], [id number], [id number] ####[facility] (DEFAULT)[address] [place] [address] 47799 Alk Phos 61 IU/L Normal 32-91 [facility] Comment on above: Performed By: #### 7 [id number], [id number], [id number] ####[facility] (DEFAULT)[address] [place] [address] 44055 ALT [Catalytic activity/Vol] 28.0 U/L Normal 14.0-54.0 [facility] Comment on above: Performed By: #### 7 [id number], [id number], [id number] ####[facility] (DEFAULT)[address] [place] [address] 07053 Anion gap [Moles/Vol] 12.4 mmol/L Normal 5.0-19.0 [facility] Comment on above: Performed By: #### 7 975397, [id number], [id number] ####[facility] (DEFAULT)[address] [place] [address] 33312 AST [Catalytic activity/Vol] 23 U/L Normal 15-41 [facility] Comment on above: Performed By: #### 7 [id number], [id number], [id number] ####[facility] (DEFAULT)[address] [place] [address] 35015 Bili Total 0.8 mg/dL Normal 0.3-1.2 [facility] Comment on above: Performed By: #### 7 [id number], [id number], [id number] ####[facility] (DEFAULT)[address] [place] [address] 45181 Calcium [Mass/Vol] 9.1 mg/dL Normal 8.9-10.3 [facility] Comment on above: Performed By: #### 7 [id number], [id number], [id number] ####[facility] (DEFAULT)[address] [place] [address] 22229 Chloride [Moles/Vol] 106 mmol/L Normal 101-111 [facility] Comment on above: Performed By: #### 7 [id number], [id number], [id number] ####[facility] (DEFAULT)[address] [place] [address] 81447 CO2 [Moles/Vol] 23 mmol/L Normal 21-32 [facility] Comment on above: Performed By: #### 7 [id number], [id number], [id number] ####[facility] (DEFAULT)[address] [place] [address] 01164 Creatinine [Mass/Vol] 0.78 mg/dL Normal 0.60-1.30 [facility] Comment on above: Performed By: #### 7 [id number], [id number], [id number] ####[facility] (DEFAULT)[address] [place] [address] 80882 Globulin (S) [Mass/Vol] 4.1 g/dL Normal 1.5-4.3 [facility] Comment on above: Performed By: #### 7 [id number], [id number], [id number] ####[facility] (DEFAULT)[address] [place] [address] 39812 Glucose [Mass/Vol] 104.0 mg/dL Normal 74.0-118.0 [facility] Comment on above: Performed By: #### 7 111138, [id number], [id number] ####[facility] (DEFAULT)[address] [place] [address] 76404 Osmolality 274 mOsm/L Invalid Interpretation Code [facility] Comment on above: Performed By: #### 7 [id number], [id number], [id number] ####[facility] (DEFAULT)[address] [place] [address] 59326 Potassium [Moles/Vol] 3.4 mmol/L Low 3.6-5.1 [facility] Comment on above: Performed By: #### 7 [id number], [id number], [id number] ####[facility] (DEFAULT)[address] [place] [address] 91254 Protein [Mass/Vol] 8.3 g/dL High 6.5-8.1 [facility] Comment on above: Performed By: #### 7 [id number], [id number], [id number] ####[facility] (DEFAULT)[address] [place] [address] 08482 Sodium [Moles/Vol] 138.0 mmol/L Normal 136.0-144.0 [facility] Comment on above: Performed By: #### 7 [id number], [id number], [id number] ####[facility] (DEFAULT)[address] [place] [address] 54769 Urea nitrogen [Mass/Vol] 8 mg/dL Normal 8-26 [facility] Comment on above: Performed By: #### 7 [id number], [id number], [id number] ####[facility] (DEFAULT)[address] [place] [address] 77817 Urea nitrogen/Creatinine [Mass ratio] 10.2 mg/mg Normal 4.6-16.2 [facility] Comment on above: Performed By: #### 7 [id number], [id number], [id number] ####[facility] (DEFAULT)[address] [place] [address] 71893 Breakpoint Chem Normal [facility] Comment on above: Performed By: #### 7 [id number], [id number], [id number] ####[facility] (DEFAULT)[address] [place] [address] 28896 ED Clinical Summaryon 2023 ED Clinical Summary [facility] - Emergency Department [address] [place] [address] ED Clinical Summary PERSON INFORMATION Name: ANTONIA NOYOLA Age: 39 Years Sex: FEMALE : 1985 MRN: Acct#: Visit Reason: Abdominal pain; RT SIDE ABD PAIN Arrival: 06/11/2024 15:13:20 Discharge: 06/11/2024 18:32:00 LOS: 000 03:19 Check In: 06/11/2024 15:13:20 Checkout:06/11/2024 18:32:00 Address: [address] [place] [address] PCP: Provider, None PROVIDER INFORMATION Provider Role Assigned Unassigned Letty RN, Celestina Leos ED Nurse 06/11/2024 15:15:36 Lenka Padilla [employer] ED PA 06/11/2024 15:17:46 Eran Hill MD ED Provider 06/11/2024 18:07:59 VITALS INFORMATION Vital Sign Triage Latest Temperature Tympanic Temperature Temporal Artery Pulse Rate 93 bpm 70 bpm O2 Sat 96 % 98 % Respiratory Rate 16 br/min 16 br/min Blood Pressure /94 mmHg /94 mmHg MEDICAL INFORMATION Medications Given: Medication Dose Route ondansetron 4 mg IV Push HYDROmorphone (Dilaudid) 0.5 mg IV Push HYDROmorphone (Dilaudid) 0.5 mg IV Push Allergy Information: Compazine; morphine PHYSICIAN DOCUMENTATION DISCHARGE INFORMATION: Discharge Disposition: Home Discharge Location: Home PATIENT EDUCATION INFORMATION Instructions: Ovarian Cyst, [id number] Follow-Up: With: Address: When: Provider, None [address] [place] [address] Within 3 to 5 days Comments: Please call Dr. Wilson office and see if you can be seen sooner than June 18. CT scan shows a possible right ovarian cyst. This needs further evaluation from an ASSISTANT BOILER OPERATOR specialist. Continue taking medication as needed for pain. May take Tylenol 1000 mg every 6 hours as needed for pain. May take ibuprofen 600 mg every 8 hours as needed for pain. DIAGNOSIS: 1:Other ovarian cyst, right side Patient Understands: Yes - Patient/family/caregiv er verbalizes understanding of instructions given Comment: Normal [facility] ED Patient Summaryon 024 ED Patient Summary [facility] - Emergency Department [address] [place], [place] [id number] PATIENT DISCHARGE INSTRUCTIONS Patient Information Name: ANTONIA NOYOLA Age: 39 Years Date of : 1985 Reason For Visit: Abdominal pain; RT SIDE ABD PAIN Arrival Time: 06/11/2024 15:13:20 Primary Care Physician: Provider, None Attending Physician: Eran Hill MD Comment: Visit Diagnosis: Diagnoses This Visit Abdominal pain ([id number]) Other ovarian cyst, right side (N83.291) The Pharmacy at [facility] is open Tuesday through Tuesday from 9A to 6P and Tuesday and Tuesday from 9A to 5P Prescription Information: If you have been given a prescription for narcotics, seek immediate medical attention if you have any difficulty breathing or any sudden status changes such as confusion and sleepiness. If you or anyone you know is experiencing suicidal thoughts, mental health, alcohol and/or drug addiction problems; contact the [facility] Recovery [facility] Alfredo Aida [facility] 03/01 Crisis Hotline -Text 5DCBQ pv 299086. If you received any narcotics, sedation, or any other medication that causes drowsiness for the next 24 hours, unless otherwise directed: ? Do not drive a car. ? Do not operate machinery such as power tools, lawn mowers, drills, sewing machines, or stoves ? Avoid alcoholic beverages and drugs for allergies, nerves, or sleep ? Do not make important personal or business decisions or sign any legal documents With: Address: When: Provider, Shazia [address] [place] [address] Within 3 to 5 days Comments: Please call Dr. Wilson office and see if you can be seen sooner than June 18. CT scan shows a possible right ovarian cyst. This needs further evaluation from an ASSISTANT BOILER OPERATOR specialist. Continue taking medication as needed for pain. May take Tylenol 1000 mg every 6 hours as needed for pain. May take ibuprofen 600 mg every 8 hours as needed for pain. Medication Information: The exam and treatment you received today in the [facility] Emergency Department were for an urgent problem and are not intended as complete care. It is important for you to follow up with a doctor, nurse practitioner, or physician?s personal injury legal assistant for ongoing care. If your symptoms become worse or you do not improve as expected and you are unable to reach your usual health care provider, you should return to the Emergency Department, we are available 24 hours a day. For those patients who have received Radiology results, the interpretation of your X-ray as given to you by our Emergency Department physician is only a preliminary report. The Radiologist will review your films and if there is a change in the diagnosis you will be notified by phone. Please make sure you have provided a working phone number so we can reach you if necessary. In the event that you had a lab culture while you were a patient in the Emergency Department, you will be notified by phone if there is a need to change your antibiotic. Please make sure you have provided a working phone number so we can reach you if necessary. [facility] Emergency Department has provided you with a complete list of medications post discharge. Please inform your primary care nurse/provider of your visit and for further instruction on these medications. Any specific questions regarding your chronic medications and dosages should be discussed with your primary care physician(s) and/or pharmacist. Additional medications on your home medication list not specifically addressed. Please contact the ordering physician if you have questions about these medications. ALPRAZolam (ALPRAZolam 0.25 mg oral tablet) TAKE 1 TABLET BY MOUTH EVERY 8-12 HOURS NEEDED FOR ANXIETY FOR 2 DAYS. citalopram (CeleXA) Visit Information Allergies: Substance Reaction Symptoms Type Comments Compazine Drug morphine Drug Vital Signs: Vitals and Measurements this Visit (last charted value for your 06/11/2024 visit) Vital Signs This Visit Temperature Oral: 36.7 DegC Peripheral Pulse Rate: 70 bpm Heart Rate Monitored: 86 bpm Respiratory Rate: 16 br/min Systolic Blood Pressure: 139 mmHg Diastolic Blood Pressure: 91 mmHg Mean Arterial Pressure, Cuff-Calculation: 107 mmHg Mean Arterial Pressure Cuff-Monitor: 103 mmHg SpO2: 98 % Oxygen Therapy: Room air Measurements This Visit Height/Length Measured: 166 cm Weight Measured: 83.91 kg Weight Dosin.910 kg Body Mass Index: 30.45 kg/m2 Body Mass Index: 30.45 kg/m2 Problems List: Problem Onset Comments No Problems found Patient Education Ovarian Cyst An ovarian cyst is a fluid-filled sac on an ovary. Most of these cysts go away on their own and are not cancer. Some cysts need treatment. What are the causes? ? Ovarian hyperstimulation syndrome. Some medicines may lead to this problem. ? Polycystic ovarian syndrom (more content not included)... Normal [facility] UA w Culture if Ind Standard on 06-11-2024 Breakpoint UA Normal [facility] Comment on above: Performed By: #### 1 [id number] ####[facility] (DEFAULT)[address] [place] [address] Color (U) Yellow Normal [facility] Comment on above: Performed By: #### 1 [id number] ####[facility] (DEFAULT)[address] [place] [address] Culture? Not Indicated Invalid Interpretation Code [facility] Comment on above: Result Comment: Resu lt created by rule GL_MAGR_ADD_UA_CULT1 Performed By: #### 1 [id number] ####[facility] (DEFAULT)[address] [place] [address] Glucose (U) [Mass/Vol] Negative Normal [facility] Comment on above: Performed By: #### 1 [id number] ####[facility] (DEFAULT)[address] [place] [address] Ketones Ql (U) Negative [facility] Comment on above: Performed By: #### 1 [id number] ####[facility] (DEFAULT)[address] [place] [address] Micro? Not Indicated Invalid Interpretation Code [facility] Comment on above: Result Comment: Resu lt created by rule GL_MAGR_ADD_UA_MICRO Performed By: #### 1 [id number] ####[facility] (DEFAULT)[address] [place] [address] UA Bilirubin Negative Normal [facility] Comment on above: Performed By: #### 1 [id number] ####[facility] (DEFAULT)[address] [place] [address] UA Blood Negative Normal [facility] Comment on above: Performed By: #### 1 [id number] ####[facility] (DEFAULT)[address] [place] [address] UA Clarity CLEAR Normal CLEAR [facility] Comment on above: Performed By: #### 1 [id number] ####[facility] (DEFAULT)[address] [place] [address] UA Leuk Est Negative Normal NEGATIVE [facility] Comment on above: Performed By: #### 1 [id number] ####[facility] (DEFAULT)[address] [place] [address] UA Nitrite Negative Normal NEGATIVE [facility] Comment on above: Performed By: #### 1 [id number] ####[facility] (DEFAULT)[address] [place] [address] UA pH 6.5 Normal 5-8 [facility] Comment on above: Performed By: #### 1 [id number] ####[facility] (DEFAULT)[address] [place] [address] UA Protein Negative Normal NEGATIVE [facility] Comment on above: Performed By: #### 1 [id number] ####[facility] (DEFAULT)[address] [place] [address] UA Spec Grav 1.010 Normal 1.001-1.035 [facility] Comment on above: Performed By: #### 1 [id number] ####[facility] (DEFAULT)[address] [place] [address] UA Urobilinogen 0.2 mg/dL Normal 0.2-1.0 [facility] Comment on above: Performed By: #### 1 [id number] ####[facility] (DEFAULT)[address] [place] [address] Urine Source Clean Catch Normal [facility] Comment on above: Performed By: #### 1 [id number] ####[facility] (DEFAULT)[address] [place] [address] US Pelvis Non-OB Completeon 06-11-2024 US Pelvis Non-OB Complete EXAM: US Pelvis Non-OB Complete HISTORY: R Ovarian cyst COMPARISON: CT abdomen pelvis 06/08/2024 TECHNIQUE: Transabdominal and transvaginal scanning of the pelvis was performed FINDINGS: Patient has undergone hysterectomy and bilateral oophorectomy. Uterus is now identified. Neither ovary is visualized. In the right adnexa, there is a complex cystic lesion with low level echoes measuring 3.0 x 3.0 x 2.3 cm, corresponding to the abnormality seen on recent CT scan. There is no free fluid in the cul-de-sac. IMPRESSION: Complex right adnexal cyst seen corresponding to the abnormality CT scan, possibly an endometrioma. Final Dictated by: Rina Rushing MD Dictated DT/TM: 06/11/24 6:42 Signed (Electronic Signature): Rina Rushing MD 06/11/24 6:46 pm Technologist: Angela [facility] US Transvaginalon 06-11-2024 US Transvaginal EXAM: US Pelvis Non- OB Complete HISTORY: R Ovarian cyst COMPARISON: CT abdomen pelvis 06/08/2024 TECHNIQUE: Transabdominal and transvaginal scanning of the pelvis was performed FINDINGS: Patient has undergone hysterectomy and bilateral oophorectomy. Uterus is now identified. Neither ovary is visualized. In the right adnexa, there is a complex cystic lesion with low level echoes measuring 3.0 x 3.0 x 2.3 cm, corresponding to the abnormality seen on recent CT scan. There is no free fluid in the cul-de-sac. IMPRESSION: Complex right adnexal cyst seen corresponding to the abnormality CT scan, possibly an endometrioma. Final Dictated by: Rina Rushing MD Dictated DT/TM: 06/11/24 6:42 Signed (Electronic Signature): Rina Rushing MD 06/11/24 6:46 pm Technologist: [facility] CBC AND AUTO DIFFon 06-10-20 ABSOLUTE BASOPHIL 0.1 X10E9/L Normal 0.0-0.2 [facility] Comment on above: Performed By: #### C HEATH [facility], 99819-1 #### [facility] ([id number]) [address], [address] [place] [address] ABSOLUTE NEUTROPHIL 3.8 X10E9/L Normal 1.5-6.6 [facility] Comment on above: Performed By: #### C HEATH CMP, 81756-9 #### [facility] ([id number]) [address], [address] [place] [address] Basophils/100 WBC (Bld) 0.9 % Normal P [facility] Comment on above: Performed By: #### C STEVE JOE, 11862-2 #### [facility] ([id number]) [address], [address] [place] [address] Eosinophils (Bld) [#/Vol] 0.0 10*3/uL Normal 0.0-0.4 [facility] Comment on above: Performed By: #### C HEATH CMP, 11330-8 #### [facility] ([id number]) [address], [address] [place] [address] Eosinophils/100 WBC (Bld) 0.6 % Normal [facility] Comment on above: Performed By: #### Leila JOE, CMP, 82279-9 #### [facility] ([id number]) [address], [address] [place] [address] Erythrocyte distribution width (RBC) [Ratio] 20.0 % High 11.5-15.0 [facility] Comment on above: Performed By: #### C HEATH, CMP, 70298-4 #### [facility] ([id number]) [address], [facility] [address] [place] [address] Hematocrit (Bld) [Volume fraction] 31.9 % Low 35-47 [facility] Comment on above: Performed By: #### Leila JOE, CMP, 22962-6 #### [facility] ([id number]) [address], [address] [place] [address] Hemoglobin (Bld) [Mass/Vol] 10.2 g/dL Low 11.7-15.5 [facility] Comment on above: Performed By: #### Leila JOE, CMP, 76614-6 #### [facility] ([id number]) [address], [address] [place] [address] Lymphocytes (Bld) [#/Vol] 3.1 10*3/uL Normal 1.0-3.5 [facility] Comment on above: Performed By: #### Leila BCA, CMP, 34584-5 #### [facility] ([id number]) [address], [address] [place] [address] Lymphocytes/100 WBC (Bld) 41.0 % Normal [facility] Comment on above: Performed By: #### Leila BCA, CMP, 87535-3 #### [facility] ([id number]) [address], [address] [place] [address] MCH (RBC) [Entitic mass] 22.8 pg Low 27-34 [facility] Comment on above: Performed By: #### C HEATH, CMP, 60849-9 #### [facility] ([id number]) [address], [address] [place] [address] MCHC (RBC) [Mass/Vol] 31.9 g/dL Low 32-36 [facility] Comment on above: Performed By: #### C HEATH, CMP, 92230-0 #### [facility] ([id number]) [address], [address] [place] [address] MCV (RBC) [Entitic vol] 72 fL Low 80-100 P [facility] Comment on above: Performed By: #### C HEATH, CMP, 99456-5 #### [facility] ([id number]) [address], [address] [place] [address] Monocytes (Bld) [#/Vol] 0.5 10*3/uL Normal 0-0.9 [facility] Comment on above: Performed By: #### C HEATH, CMP, 90810-7 #### [facility] ([id number]) [address], [address] [place] [address] Monocytes/100 WBC (Bld) 6.6 % Normal P [facility] Comment on above: Performed By: #### C HEATH, CMP, 08315-6 #### [facility] ([id number]) [address], [address] [place] [address] Neutrophils/100 WBC (Bld) 50.9 % Normal [facility] Comment on above: Performed By: #### C HEATH, CMP, 95589-6 #### [facility] ([id number]) [address], [address] [place] [address] Platelet mean volume (Bld) [Entitic vol] 7.4 fL Normal 7-12 [facility] Comment on above: Performed By: #### C HEATH, CMP, 64847-5 #### [facility] ([id number]) [address] [address] Platelets (Bld) [#/Vol] 415 10*3/uL Normal 150-450 [facility] Comment on above: Performed By: #### C BCA, CMP, 95526-6 #### [facility] ([id number]) [address], [address] [address] RBC COUNT 4.46 X10E12/L Normal 3.80-5.20 [facility] Comment on above: Performed By: #### C HEATH, CMP, 89426-4 #### [facility] ([id number]) [address] [address] WBC (Bld) [#/Vol] 7.5 10*3/uL Normal 4.0-11.0 [facility] Comment on above: Performed By: #### C HEATH, CMP, 31091-4 #### [facility] ([id number]) [address] [address] CHLAMYDIA/GC BY PCRon 2023 CHLAMYDIA/GC BY PCR SPECIMEN SOURCE CERVIX CHLAMYDIA DNA(PCR) Negative (qualifier value) Chlamydia trachomatis not detected by nucleic acid amplification. This does not exclude the possibility of infection because results are dependent on adequate specimen collection. GONORRHOEAE DNA(PCR) Negative (qualifier value) Neisseria gonorrhoeae not detected by nucleic acid amplification. This does not exclude the possibility of infection because results are dependent on adequate specimen collection. Normal [facility] Comment on above: Performed By: #### C BCA, CMP #### [facility] ([id number]) [address] [address] COMPREHENSIVE METABOLIC PANE Van 06-10-2024 Albumin [Mass/Vol] 4.0 g/dL Normal 3.2-5.3 [facility] Comment on above: Performed By: #### C BCA, CMP, 26853-5 #### [facility] ([id number]) [address], [address] [place] [address] ALP [Catalytic activity/Vol] 65 U/L Normal 39-130 [facility] Comment on above: Performed By: #### C BCA, CMP, 94579-9 #### [facility] ([id number]) [address], [address] [place] [address] ALT [Catalytic activity/Vol] 32 U/L High 0-31 [facility] Comment on above: Performed By: #### C BCA, CMP, 35651-2 #### [facility] ([id number]) [address], [address] [place] [address] Anion gap [Moles/Vol] 11 mmol/L Normal 5-15 [facility] Comment on above: Performed By: #### C BCA, CMP, 77808-4 #### [facility] ([id number]) [address], [address] [place] [address] AST [Catalytic activity/Vol] 29 U/L Normal 0-41 [facility] Comment on above: Performed By: #### C BCA, CMP, 02503-6 #### [facility] ([id number]) [address], [address] [place] [address] Bilirubin [Mass/Vol] 0.6 mg/dL Normal 0.3-1.2 [facility] Comment on above: Performed By: #### C BCA, CMP, 18241-2 #### [facility] ([id number]) [address], [address] [place] [address] Calcium [Mass/Vol] 9.0 mg/dL Normal 8.5-10.5 [facility] Comment on above: Performed By: #### C BCA, CMP, 22559-5 #### [facility] ([id number]) [address], [address] [place] [address] Chloride [Moles/Vol] 105 mmol/L Normal 98-109 [facility] Comment on above: Performed By: #### C BCA, CMP, 46953-2 #### [facility] ([id number]) [address] [address] [place] [address] CO2 [Moles/Vol] 24 mmol/L Normal 22-32 [facility] Comment on above: Performed By: #### C BCA, CMP, 13405-3 #### [facility] ([id number]) [address] [address] Creatinine [Mass/Vol] 0.76 mg/dL Normal 0.40-1.00 [facility] Comment on above: Result Comment: METH OD TRACEABLE TO IDMS STANDARD Performed By: #### C BCA, CMP, 43005-3 #### [facility] ([id number]) [address] [address] eGFR (CKD-EPI) NON-RACE DEPENDENT >90 Normal >59 [facility] Comment on above: Result Comment: Reported eGFR is based on the CKD-EPI 2020 equation that does not use a race coefficient. Performed By: #### C BCA, CMP, 70342-7 #### [facility] ([id number]) [address] [address] Glucose [Mass/Vol] 119 mg/dL High 65-99 [facility] Comment on above: Performed By: #### C BCA, CMP, 05746-7 #### [facility] ([id number]) [address] [address] Potassium [Moles/Vol] 3.3 mmol/L Low 3.5-5.0 [facility] Comment on above: Performed By: #### C BCA, CMP, 82783-6 #### [facility] ([id number]) [address] [place] [address] Protein [Mass/Vol] 7.2 g/dL Normal 6.0-8.0 [facility] Comment on above: Performed By: #### C BCA, CMP, 57448-9 #### [facility] ([id number]) [address], [address] [place] [address] Sodium [Moles/Vol] 140 mmol/L Normal 134-146 [facility] Comment on above: Performed By: #### C BCA, CMP, 54848-4 #### [facility] ([id number]) [address], [address] [place] [address] Urea nitrogen [Mass/Vol] 7 mg/dL Normal 5-23 [facility] Comment on above: Performed By: #### C BCA, CMP, 80912-4 #### [facility] ([id number]) [address], [address] [place] [address] Follitropin Qnon 06-10-2024 FOLLICLE STIM HORMONE 6.7 mIU/mL Normal [facility] Comment on above: Result Comment: NORMAL FEMALE Luteal 1.8-5.1 mIU/mL Follicular 3.8-8.8 mIU/mL Mid Cycle 4.5-22.5 mIU/mL Post [place] 16.7-113.6 mIU/mL Performed By: #### C BCA, CMP, 46311-2 #### [facility] ([id number]) [address], [address] [place] [address] URN MACROSCOPIC NURon 2023 BILIRUBIN AUDREY Small Abnormal NEG [facility] Comment on above: Performed By: #### N UM #### [facility] ([id number]) [address] [place] [address] BLOOD/HGB AUDREY Negative Normal NEG [facility] Comment on above: Performed By: #### N UM #### [facility] ([id number]) [address] [place] [address] GLUCOSE AUDREY Negative Normal NEG [facility] Comment on above: Performed By: #### N UM #### [facility] ([id number]) [address] [place] [address] KETONES AUDREY 15 mg/dL Abnormal NEG [facility] Comment on above: Performed By: #### N UM #### [facility] ([id number]) [address] [place] [address] LEUKOCYTE ESTERASE AUDREY Negative Normal NEG Pr [facility] Comment on above: Performed By: #### N UM #### [facility] ([id number]) [address] [place] [address] NITRITE AUDREY Negative Normal NEG [facility] Comment on above: Performed By: #### N UM #### [facility] ([id number]) [address] [place] [address] PH AUDREY 5.5 Normal 5.0-8.5 [facility] Comment on above: Performed By: #### N UM #### [facility] ([id number]) [address] [place] [address] PROTEIN AUDREY Trace Abnormal NEG [facility] Comment on above: Performed By: #### N UM #### [facility] ([id number]) [address] [place] [address] SPECIFIC GRAVITY AUDREY >=1.030 Normal 1.003-1.035 [facility] Comment on above: Performed By: #### N UM #### [facility] ([id number]) [address] [facility] [address] UROBILINOGEN AUDREY 0.2 eu/dL Normal <1.1 [facility] Comment on above: Performed By: #### N #### [facility] ([id number]) [address] [place] [address] US PELVIC WITH TRANSVAGINALo n 06-10-2024 US PELVIC WITH TRANSVAGINAL US PELVIC WITH TRANSVAGINAL PELVIC ULTRASOUND HISTORY: Right lower quadrant pain, 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 Transabdominal imaging performed to evaluate for extra adnexal pelvic pathology. Transvaginal imaging performed for better delineation of the adnexal and endometrial contents. FINDINGS: Status post hysterectomy and bilateral oophorectomy. Deep within the right pelvis there is an anechoic cystic structure measuring 3.0 x 2.0 x 2.5 cm containing a thin internal septation. IMPRESSION: * Status post hysterectomy and bilateral oophorectomy. * Mildly complicated cystic structure measuring 3.0 cm deep within the right pelvis. 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 Other considerations include mildly complicated postoperative seroma or residual endometrioma. Superimposed infection not fully excluded in the appropriate clinical setting. Finalized by Steve El MD on 06/10/2024 10:[address] [facility] Urine collection deviceon ER EXTRA URINES ER EXTRA URINE ORDER IN PROCESS Normal [facility] VAGINITIS PANEL PCRon 2023 VAGINITIS PANEL PCR BACT. VAGINOSIS DNA Not detected (qualifier value) Qualitative results are reported based on detection and quantitation of targeted organism markers which include: Lactobacillus spp. (L. crispatus and L. jensenii), Gardnerella vaginalis, Atopobium vaginae, Bacterial Vaginosis Associated Bacteria-2 (BVAB-2) and Megasphaera-1 HARPER SPECIES DNA Not detected (qualifier value) Harper species not detected include: C. albicans, C. tropicalis, C. parapsilosis or [...] clinical presentation to determine patient diagnosis. Normal [facility] Comment on above: Performed By: #### V PPCR #### [facility] ([id number]) [address], [address] [place] [address] CBC AND AUTO DIFFon 06-09-20 24 ABSOLUTE BASOPHIL 0.1 X10E9/L Normal 0.0-0.2 [facility] Comment on above: Performed By: #### 2 106-3 #### [facility] ([id number]) [address] [place] [address] ABSOLUTE NEUTROPHIL 2.7 X10E9/L Normal 1.5-6.6 [facility] Comment on above: Performed By: #### 2 106-3 #### [facility] ([id number]) [address] [place] [address] Basophils/100 WBC (Bld) 1.0 % Normal P [facility] Comment on above: Performed By: #### 2 106-3 #### [facility] ([id number]) [address] [place] [address] Eosinophils (Bld) [#/Vol] 0.1 10*3/uL Normal 0.0-0.4 [facility] Comment on above: Performed By: #### 2 106-3 #### [facility] ([id number]) [address] [place] [address] Eosinophils/100 WBC (Bld) 1.0 % Normal [facility] Comment on above: Performed By: #### 2 106-3 #### [facility] ([id number]) [address] [place] [address] Erythrocyte distribution width (RBC) [Ratio] 20.2 % High 11.5-15.0 [facility] Comment on above: Performed By: #### 2 106-3 #### [facility] ([id number]) [address] [place] [address] Hematocrit (Bld) [Volume fraction] 31.2 % Low 35-47 [facility] Comment on above: Performed By: #### 2 106-3 #### [facility] ([id number]) [address] [place] [address] Hemoglobin (Bld) [Mass/Vol] 10.2 g/dL Low 11.7-15.5 [facility] Comment on above: Performed By: #### 2 106-3 #### [facility] ([id number]) [address] [place] [address] Lymphocytes (Bld) [#/Vol] 2.6 10*3/uL Normal 1.0-3.5 [facility] Comment on above: Performed By: #### 2 106-3 #### [facility] ([id number]) [address] [place] [address] Lymphocytes/100 WBC (Bld) 44.6 % Normal [facility] Comment on above: Performed By: #### 2 106-3 #### [facility] ([id number]) [address] [place] [address] MCH (RBC) [Entitic mass] 23.5 pg Low 27-34 [facility] Comment on above: Performed By: #### 2 106-3 #### [facility] ([id number]) [address] [place] [address] 50305 MCHC (RBC) [Mass/Vol] 32.8 g/dL Normal 32-36 [facility] Comment on above: Performed By: #### 2 106-3 #### [facility] ([id number]) [address] [place] [address], [place] [address] MCV (RBC) [Entitic vol] 72 fL Low 80-[address] [facility] Comment on above: Performed By: #### 2 106-3 #### [facility] ([id number]) [address] [place] [address] 72831 Monocytes (Bld) [#/Vol] 0.5 10*3/uL Normal 0-0.9 [facility] Comment on above: Performed By: #### 2 106-3 #### [facility] ([id number]) [address] [place] [address] 86897 Monocytes/100 WBC (Bld) 7.7 % Normal [facility] Comment on above: Performed By: #### 2 106-3 #### [facility] ([id number]) [address] [place] [address] 65533 Neutrophils/100 WBC (Bld) 45.7 % Normal [facility] Comment on above: Performed By: #### 2 106-3 #### [facility] ([id number]) [address] [place] [address] 37387 Platelet mean volume (Bld) [Entitic vol] 7.5 fL Normal 7-12 [facility] Comment on above: Performed By: #### 2 106-3 #### [facility] ([id number]) [address] [place] [address] 62104 Platelets (Bld) [#/Vol] 438 10*3/uL Normal 150-450 [facility] Comment on above: Performed By: #### 2 106-3 #### [facility] ([id number]) [address] [place] [address] 43799 RBC COUNT 4.35 X10E12/L Normal 3.80-5.20 [facility] Comment on above: Performed By: #### 2 106-3 #### [facility] ([id number]) [address] [place] [address] 84939 WBC (Bld) [#/Vol] 5.9 10*3/uL Normal 4.0-11.0 [facility] Comment on above: Performed By: #### 2 106-3 #### [facility] ([id number]) [address] [place] [address] 82236 COMPREHENSIVE METABOLIC PANE Van 06-09-2024 Albumin [Mass/Vol] 4.1 g/dL Normal 3.2-5.3 [facility] Comment on above: Performed By: #### 2 106-3 #### [facility] ([id number]) [address] [place] [address] 36950 ALP [Catalytic activity/Vol] 68 U/L Normal 39-130 [facility] Comment on above: Performed By: #### 2 106-3 #### [facility] ([id number]) [address] [place] [address] 61869 ALT [Catalytic activity/Vol] 36 U/L High 0-31 [facility] Comment on above: Performed By: #### 2 106-3 #### [facility] ([id number]) [address] [place] [address] 67200 Anion gap [Moles/Vol] 9 mmol/L Normal 5-15 [facility] Comment on above: Performed By: #### 2 106-3 #### [facility] ([id number]) [address] [place] [address] 47715 AST [Catalytic activity/Vol] 30 U/L Normal 0-41 [facility] Comment on above: Performed By: #### 2 106-3 #### [facility] ([id number]) [address] [place] [address] 10493 Bilirubin [Mass/Vol] 0.7 mg/dL Normal 0.3-1.2 [facility] Comment on above: Performed By: #### 2 106-3 #### [facility] ([id number]) [address] [place] [address] 13259 Calcium [Mass/Vol] 9.3 mg/dL Normal 8.5-10.5 [facility] Comment on above: Performed By: #### 2 106-3 #### [facility] ([id number]) [address] [place] [address] 94789 Chloride [Moles/Vol] 108 mmol/L Normal 98-109 [facility] Comment on above: Performed By: #### 2 106-3 #### [facility] ([id number]) [address] [place] [address] 84345 CO2 [Moles/Vol] 22 mmol/L Normal 22-32 [facility] Comment on above: Performed By: #### 2 106-3 #### [facility] ([id number]) [address] [place] [address] 05756 Creatinine [Mass/Vol] 0.75 mg/dL Normal 0.40-1.00 [facility] Comment on above: Result Comment: METH OD TRACEABLE TO IDMS STANDARD Performed By: #### 2 106-3 #### [facility] ([id number]) [address] [place] [address] 38585 eGFR (CKD-EPI) NON-RACE DEPENDENT >90 Normal >59 [facility] Comment on above: Result Comment: Reported eGFR is based on the CKD-EPI 2021 equation that does not use a race coefficient. Performed By: #### 2 106-3 #### [facility] ([id number]) [address] [place] [address] 52338 Glucose [Mass/Vol] 103 mg/dL High 65-99 [facility] Comment on above: Performed By: #### 2 106-3 #### [facility] ([id number]) [address] [place] [address] 86866 Potassium [Moles/Vol] 3.8 mmol/L Normal 3.5-5.0 [facility] Comment on above: Performed By: #### 2 106-3 #### [facility] ([id number]) [address] [place] [address] 99257 Protein [Mass/Vol] 7.5 g/dL Normal 6.0-8.0 [facility] Comment on above: Performed By: #### 2 106-3 #### [facility] ([id number]) [address] [place] [address] 58057 Sodium [Moles/Vol] 139 mmol/L Normal 134-146 [facility] Comment on above: Performed By: #### 2 106-3 #### [facility] ([id number]) [address] [place] [address] 66918 Urea nitrogen [Mass/Vol] 7 mg/dL Normal 5-23 [facility] Comment on above: Performed By: #### 2 106-3 #### [facility] ([id number]) [address] [place] [address] 58210 LIPASEon 06-09-2024 Lipase [Catalytic activity/Vol] 37 U/L Normal 17-40 [facility] Comment on above: Performed By: #### 2 106-3 #### [facility] ([id number]) [address] [place] [address] 23503 Lactate (P arely) [Moles/Vol]o n 06-09-2024 LACTATE W/REFLEX 1.2 mmol/L Normal 0.4-2.0 [facility] Comment on above: Result Comment: Result did not trigger repeat Lactate, re-order if needed. Performed By: #### 2 106-3 #### [facility] ([id number]) [address] [place] [address] 18174 URINE CULTUREon 06-09-2024 Bacteria identified Cx Nom (U) CULTURE RESULTS 10-50,000 ORGANISMS/mL NORMAL UROGENITAL RASHID Normal [facility] Comment on above: Performed By: #### 6 30-4 ####[facility] ([id number])[address] [place] [address], [address] [address] URN MACROSCOPIC NURon 2023 BILIRUBIN AUDREY Negative Normal NEG [facility] Comment on above: Performed By: #### N UM ####[facility] ([id number])[address] [place] [address] 80605 BLOOD/HGB AUDREY Trace Abnormal NEG [facility] Comment on above: Performed By: #### N UM ####[facility] ([id number])[address] [place] [address], [place] [address] GLUCOSE AUDREY Negative Normal NEG [facility] Comment on above: Performed By: #### N UM ####[facility] ([id number])[address] [place] [address] [place] [address] KETONES AUDREY Negative Normal NEG [facility] Comment on above: Performed By: #### N UM ####[facility] ([id number])[address] [place] [address] [place] [address] LEUKOCYTE ESTERASE AUDREY Trace Abnormal NEG [facility] Comment on above: Performed By: #### N UM ####[facility] ([id number])[address] [place] [address] [place] [address] NITRITE AUDREY Negative Normal NEG [facility] Comment on above: Performed By: #### N UM ####[facility] ([id number])[address] [place] [address] [place] [address] PH AUDREY 6.5 Normal 5.0-8.5 [facility] Comment on above: Performed By: #### N UM ####[facility] ([id number])[address] [place] [address] [place] [address] PROTEIN AUDREY Negative Normal NEG [facility] Comment on above: Performed By: #### N UM ####[facility] ([id number])[address] [place] [address] 20608 SPECIFIC GRAVITY AUDREY 1.010 Normal 1.003-1.035 [facility] Comment on above: Performed By: #### N UM ####[facility] ([id number])[address] [place] [address] 53574 UROBILINOGEN AUDREY 1.0 eu/dL Normal <1.1 [facility] Comment on above: Performed By: #### N UM ####[facility] ([id number])[address] [place] [address] .Auto Diff 06-08-2024 Auto [place] % 5 % Normal 06-24 [facility] Comment on above: Performed By: #### 1 [id number], [id number], 2035506536, 3563201, 71926437 ####[facility] (DEFAULT)[address] [place] [address] 42666 Baso Abs# 0.1 x10 Normal 0.0-0.2 [facility] Comment on above: Performed By: #### 1 [id number], [id number], 2364585782, 7018718, 30879166 ####[facility] (DEFAULT)[address] [place] [address] 17897 Basophils/100 WBC (Bld) 1.0 % Normal 0.2-2.0 [facility] Comment on above: Performed By: #### 1 [id number], [id number], 1289950856, 1580113, 64801702 ####[facility] (DEFAULT)[address] [place] [address] Eos Abs# 0.0 x10 Normal 0.0-0.4 [facility] Comment on above: Performed By: #### 1 [id number], [id number], 8377244541, 1026044, 18459149 ####[facility] (DEFAULT)[address] [place] [address] 75932 Eosinophils/100 WBC (Bld) 0.4 % Low 0.9-4.0 [facility] Comment on above: Performed By: #### 1 [id number], [id number], 2148120955, 7960112, 11547151 ####[facility] (DEFAULT)[address] [place] [address] 00347 Lymph Abs# 1.7 x10 Normal 1.3-2.9 [facility] Comment on above: Performed By: #### 1 [id number], [id number], 7591087634, 8383521, 93166270 ####[facility] (DEFAULT)[address] [place] [address] Lymphocytes/100 WBC (Bld) 27 % Normal 14-48 [facility] Comment on above: Performed By: #### 1 [id number], 7415951829, 9388192037, 2776040, 06690565 ####[facility] (DEFAULT)[address] [place] [address] 21919 [place] Abs# 0.3 x10 Normal 0.0-0.8 [facility] Comment on above: Performed By: #### 1 [id number], 8904076159, 9522581766, 8052420, 46938782 ####[facility] (DEFAULT)[address] [place] [address] 61976 Neut Abs# 4.2 x10 Normal 1.5-9.2 [facility] Comment on above: Performed By: #### 1 [id number], 5084156565, 7435940509, 8939631, 67145476 ####[facility] (DEFAULT)[address] [place] [address] 50048 Neutrophils/100 WBC (Bld) 66 % Normal 44-88 [facility] Comment on above: Performed By: #### 1 [id number], 7168378498, 7241551282, 8443411, 54770245 ####[facility] (DEFAULT)[address] [place] [address] CBC w/ Auto Diffon 4 Erythrocyte distribution width (RBC) [Ratio] 20.2 % High 11.5-15.0 [facility] Comment on above: Performed By: #### 1 [id number], 4282595606, 3571364964, 2310942, 59218662 ####[facility] (DEFAULT)[address] [place] [address] Hematocrit (Bld) [Volume fraction] 34.5 % Normal 33.7-40.4 [facility] Comment on above: Performed By: #### 1 [id number], [id number], 9085790758, 3227711, 55309818 ####[facility] (DEFAULT)[address] [place] [address] Hemoglobin (Bld) [Mass/Vol] 10.9 g/dL Low 11.3-15.9 [facility] Comment on above: Performed By: #### 1 [id number], 1666916266, 6762325757, 7613645, 18569709 ####[facility] (DEFAULT)[address] [place] [address] Man Diff? Auto Invalid Interpretation Code [facility] Comment on above: Performed By: #### 1 [id number], 2195321318, 6456129496, 0699052, 71798370 ####[facility] (DEFAULT)[address] [place] [address] 98916 MCH (RBC) [Entitic mass] 23 pg Low 24-34 [facility] Comment on above: Performed By: #### 1 [id number], 2630275347, 1500791318, 9480662, 64815764 ####[facility] (DEFAULT)[address] [place] [address] MCHC (RBC) [Mass/Vol] 32 g/dL Normal 26-37 [facility] Comment on above: Performed By: #### 1 [id number], 1666196219, 5039252831, 1973865, 62281945 ####[facility] (DEFAULT)[address] [place] [address] 50214 MCV (RBC) [Entitic vol] 72 fL Low 81-100 [facility] Comment on above: Performed By: #### 1 [id number], 4837497757, 1832396634, 9873014, 98471493 ####[facility] (DEFAULT)[address] [place] [address] 85439 Platelet 457 x10 High 138-427 [facility] Comment on above: Performed By: #### 1 [id number], 1006737897, 0566376057, 8112671, 06398432 ####[facility] (DEFAULT)[address] [place] [address] 94710 Platelet mean volume (Bld) [Entitic vol] 7.5 fL Normal 6.3-10.2 [facility] Comment on above: Performed By: #### 1 [id number], 8209552666, 5537626794, 9340219, 08295132 ####[facility] (DEFAULT)[address] [place] [address] 31237 RBC 4.77 x10 Normal 3.70-5.30 [facility] Comment on above: Performed By: #### 1 [id number], 7913965768, 8263457268, 6144579, 59229808 ####[facility] (DEFAULT)[address] [place] [address] 15917 WBC 6.4 x10 Normal 3.5-10.5 [facility] Comment on above: Performed By: #### 1 [id number], 7392292375, 2392849322, 1481652, 09315805 ####[facility] (DEFAULT)[address] [place] [address] 30646 CMP Standardon 06-08-2024 eGFR Non AA >60 Invalid Interpretation Code [facility] Comment on above: Performed By: #### 1 [id number], 4111106329, 3550820440, 1665865, 75806089 ####[facility] (DEFAULT)[address] [place] [address] 81587 eGFR AA >60 Invalid Interpretation Code [facility] Comment on above: Performed By: #### 1 [id number], 4755474222, 7911479097, 0147871, 63758078 ####[facility] (DEFAULT)[address] [place] [address] 69139 Albumin [Mass/Vol] 4.3 g/dL Normal 3.5-5.0 [facility] Comment on above: Performed By: #### 1 [id number], 6811046605, 5745790515, 6523313, 90017411 ####[facility] (DEFAULT)[address] [place] [address] Albumin/Globulin [Mass ratio] 1.0 {ratio} Low 1.4-2.6 [facility] Comment on above: Performed By: #### 1 [id number], 6072743166, 0250052928, 2792436, 43817829 ####[facility] (DEFAULT)[address] [place] [address] Alk Phos 63 IU/L Normal 32-91 [facility] Comment on above: Performed By: #### 1 [id number], 4095446848, 9559740447, 6630954, 12439316 ####[facility] (DEFAULT)[address] [place] [address] 56941 ALT [Catalytic activity/Vol] 30.0 U/L Normal 14.0-54.0 [facility] Comment on above: Performed By: #### 1 [id number], 9648255887, 9992508891, 4552477, 72607792 ####[facility] (DEFAULT)[address] [place] [address] 62480 Anion gap [Moles/Vol] 12.9 mmol/L Normal 5.0-19.0 [facility] Comment on above: Performed By: #### 1 [id number], 8182615500, 3023045028, 8813216, 12381121 ####[facility] (DEFAULT)[address] [place] [address] 74540 AST [Catalytic activity/Vol] 22 U/L Normal 15-41 [facility] Comment on above: Performed By: #### 1 [id number], 1928779873, 9631472663, 8960649, 10441902 ####[facility] (DEFAULT)[address] [place] [address] 18260 Bili Total 0.5 mg/dL Normal 0.3-1.2 [facility] Comment on above: Performed By: #### 1 [id number], 9759306121, 7078082456, 5939526, 42763381 ####[facility] (DEFAULT)[address] [place] [address] 63332 Calcium [Mass/Vol] 9.3 mg/dL Normal 8.9-10.3 [facility] Comment on above: Performed By: #### 1 [id number], 4432528782, 0819820426, 0332105, 73301113 ####[facility] (DEFAULT)[address] [place] [address] 74313 Chloride [Moles/Vol] 106 mmol/L Normal 101-111 [facility] Comment on above: Performed By: #### 1 [id number], 8038814104, 9607704024, 1054569, 60054460 ####[facility] (DEFAULT)[address] [place] [address] 29588 CO2 [Moles/Vol] 22 mmol/L Normal 21-32 [facility] Comment on above: Performed By: #### 1 [id number], 1726805769, 2775849518, 4646371, 44556665 ####[facility] (DEFAULT)[address] [place] [address] 12134 Creatinine [Mass/Vol] 0.70 mg/dL Normal 0.60-1.30 [facility] Comment on above: Performed By: #### 1 [id number], 2108434916, 6631973407, 9844000, 36782737 ####[facility] (DEFAULT)[address] [place] [address] 95135 Globulin (S) [Mass/Vol] 4.0 g/dL Normal 1.5-4.3 [facility] Comment on above: Performed By: #### 1 [id number], 8145475829, 7487249658, 4517189, 03659515 ####[facility] (DEFAULT)[address] [place] [address] Glucose [Mass/Vol] 109.0 mg/dL Normal 74.0-118.0 [facility] Comment on above: Performed By: #### 1 [id number], 3887639311, 3604272826, 1023456, 79172392 ####[facility] (DEFAULT)[address] [place] [address] 49883 Osmolality 272 mOsm/L Invalid Interpretation Code [facility] Comment on above: Performed By: #### 1 [id number], 6298211030, 0182011423, 0870776, 08537740 ####[facility] (DEFAULT)[address] [place] [address] 61416 Potassium [Moles/Vol] 3.9 mmol/L Normal 3.6-5.1 [facility] Comment on above: Performed By: #### 1 [id number], 0237764088, 3499968227, 5258241, 23557982 ####[facility] (DEFAULT)[address] [place] [address] 01879 Protein [Mass/Vol] 8.3 g/dL High 6.5-8.1 [facility] Comment on above: Performed By: #### 1 [id number], 0365271725, 6479695325, 2065816, 10633402 ####[facility] (DEFAULT)[address] [place] [address] 96308 Sodium [Moles/Vol] 137.0 mmol/L Normal 136.0-144.0 [facility] Comment on above: Performed By: #### 1 [id number], 6248722991, 3080754538, 4827465, 83310365 ####[facility] (DEFAULT)[address] [place] [address] 10570 Urea nitrogen [Mass/Vol] 7 mg/dL Low 8-26 [facility] Comment on above: Performed By: #### 1 [id number], 8180868957, 7684082930, 8060053, 89679070 ####[facility] (DEFAULT)[address] [place] [address] 41124 Urea nitrogen/Creatinine [Mass ratio] 10.0 mg/mg Normal 4.6-16.2 [facility] Comment on above: Performed By: #### 1 [id number], 3079454525, 4188155602, 2492272, 95429535 ####[facility] (DEFAULT)[address] [place] [address] CT Abdomen/Pelvis w/ Contras ton 06-08-2024 CT Abdomen/Pelvis w/ Contrast EXAMINATION: CT Abdomen/Pelvis w/ Contrast, 06/08/2024 8:38 PM EST HISTORY: right sided pain COMPARISON: CT abdomen and pelvis dated 04/12/2024 TECHNIQUE: CT scan of the abdomen and pelvis was performed following the administration of 100 mL Omnipaque [address] dose reduction technique was used, including Automated Exposure Control. FINDINGS: Limited evaluation of the lung bases demonstrates no acute findings. The liver is normal in size and contour. Postcholecystectomy prominence of the biliary tree. Negative for acute splenic or adrenal abnormality. Negative for acute pancreatic abnormality. Lytic size of the kidneys without focal lesion. No obstructing nephrolithiasis or hydronephrosis. Normal urinary bladder. The uterus is absent. Hypoattenuating lesion adjacent to the right vaginal cuff measuring 2.8 cm. Normal appendix. No bowel obstruction or bowel wall thickening. Moderate volume formed colonic stool. No free intra-abdominal air or fluid. Negative for acute superficial soft tissue abnormality. Negative for acute bony findings. IMPRESSION: 1. Negative for acute intra-abdominal or pelvic abnormality. 2. Changes of hysterectomy, hypoattenuating lesion measuring 2.8 cm is seen adjacent to the right vaginal cuff, potentially representing a right ovarian cyst if the right ovary has not been removed. Final Dictated by: Flo Infante MD Dictated DT/TM: 06/08/24 9:30 Signed (Electronic Signature): Flo Infante MD 06/08/24 9:36 pm Technologist: PREMA Miller [facility] ED Clinical Summaryon 2023 ED Clinical Summary [facility] - Emergency Department [address] [place] [address] ED Clinical Summary PERSON INFORMATION Name: ANTONIA NOYOLA Age: 39 Years Sex: FEMALE : 1985 MRN: Acct#: Visit Reason: Flank pain; Abdominal pain; ABDOMINAL PAIN Arrival: 06/08/2024 17:53:36 Discharge: 06/08/2024 22:16:00 LOS: 000 04:23 Check In: 06/08/2024 17:53:36 Checkout:06/08/2024 22:16:00 Address: [address] [place] [address] PCP: Provider, None PROVIDER INFORMATION Provider Role Assigned Unassigned Jasmyn Magana MD ED Provider 06/08/2024 18:36:34 Kendra Tobar [employer] DR[employer] Nurse 06/08/2024 18:45:19 Radha Shabazz [employer] Nurse 06/08/2024 19:29:52 Sandeep Corea MD ED Provider 06/08/2024 20:05:46 VITALS INFORMATION Vital Sign Triage Latest Temperature Tympanic Temperature Temporal Artery Pulse Rate 99 bpm 97 bpm O2 Sat 100 % 96 % Respiratory Rate 18 br/min 18 br/min Blood Pressure /92 mmHg /92 mmHg MEDICAL INFORMATION Medications Given: Medication Dose Route HYDROmorphone (Dilaudid) 1 mg IV Push iohexol (Omnipaque 350 100 ml) 350 mg IV Push acetaminophen 1000 mg IV Piggyback HYDROmorphone 1 mg IV Push Allergy Information: Compazine; morphine PHYSICIAN DOCUMENTATION DISCHARGE INFORMATION: Discharge Disposition: Home Discharge Location: Home PATIENT EDUCATION INFORMATION Instructions: Endometriosis Follow-Up: With: Address: When: Follow up with primary care provider Within 3 to 5 days DIAGNOSIS: 1:Abdominal pain; 2:Abdominal pain in female patient Patient Understands: Yes - Patient/family/caregiv er verbalizes understanding of instructions given Comment: Normal [facility] ED Patient Summaryon 024 ED Patient Summary [facility] - Emergency Department [address] [place], [place] [id number] PATIENT DISCHARGE INSTRUCTIONS Patient Information Name: ANTONIA NOYOLA Age: 39 Years Date of : 1985 Reason For Visit: Flank pain; Abdominal pain; ABDOMINAL PAIN Arrival Time: 06/08/2024 17:53:36 Primary Care Physician: Provider, None Attending Physician: Jasmyn Magana MD Comment: Visit Diagnosis: Diagnoses This Visit Abdominal pain ([id number]) Abdominal pain (R10.9) Abdominal pain in female patient (R10.9) Flank pain ([id number]) The Pharmacy at [facility] is open Tuesday through Tuesday from 9A to 6P and Tuesday and Tuesday from 9A to 5P Prescription Information: If you have been given a prescription for narcotics, seek immediate medical attention if you have any difficulty breathing or any sudden status changes such as confusion and sleepiness. If you or anyone you know is experiencing suicidal thoughts, mental health, alcohol and/or drug addiction problems; contact the [facility] 03/01 Crisis Hotline -Tscv [id number] [phone]. If you received any narcotics, sedation, or any other medication that causes drowsiness for the next 24 hours, unless otherwise directed: ? Do not drive a car. ? Do not operate machinery such as power tools, lawn mowers, drills, sewing machines, or stoves ? Avoid alcoholic beverages and drugs for allergies, nerves, or sleep ? Do not make important personal or business decisions or sign any legal documents With: Address: When: Follow up with primary care provider Within 3 to 5 days Medication Information: The exam and treatment you received today in the [facility] Emergency Department were for an urgent problem and are not intended as complete care. It is important for you to follow up with a doctor, nurse practitioner, or physician?s personal injury legal assistant for ongoing care. If your symptoms become worse or you do not improve as expected and you are unable to reach your usual health care provider, you should return to the Emergency Department, we are available 24 hours a day. For those patients who have received Radiology results, the interpretation of your X-ray as given to you by our Emergency Department physician is only a preliminary report. The Radiologist will review your films and if there is a change in the diagnosis you will be notified by phone. Please make sure you have provided a working phone number so we can reach you if necessary. In the event that you had a lab culture while you were a patient in the Emergency Department, you will be notified by phone if there is a need to change your antibiotic. Please make sure you have provided a working phone number so we can reach you if necessary. [facility] Emergency Department has provided you with a complete list of medications post discharge. Please inform your primary care nurse/provider of your visit and for further instruction on these medications. Any specific questions regarding your chronic medications and dosages should be discussed with your primary care physician(s) and/or pharmacist. Visit Information Allergies: Substance Reaction Symptoms Type Comments Compazine Drug morphine Drug Vital Signs: Vitals and Measurements this Visit (last charted value for your 06/08/2024 visit) Vital Signs This Visit Temperature Oral: 36.6 DegC Peripheral Pulse Rate: 97 bpm Respiratory Rate: 18 br/min Systolic Blood Pressure: 147 mmHg Diastolic Blood Pressure: 88 mmHg Mean Arterial Pressure, Cuff-Calculation: 108 mmHg SpO2: 96 % Oxygen Therapy: Room air Measurements This Visit Height/Length Measured: 165.1 cm Weight Measured: 81.65 kg Weight Dosin.650 kg Body Mass Index: 29.95 kg/m2 Problems List: Problem Onset Comments No Problems found Patient Education Endometriosis Follow-up with your ASSISTANT BOILER OPERATOR to review this emergency department visit and for further evaluation of your abdominal pain. Endometriosis is a condition in which tissue that forms the lining of the uterus grows in places outside the uterus. This tissue can grow in the organs that create the eggs (ovaries), in the tubes that carry the eggs to the uterus (fallopian tubes), in the vagina, and in the bowel. This tissue most often grows on the ovaries and inner lining of the pelvic cavity (peritoneum). What are the causes? The cause of this condition is not known. What increases the risk? The following factors may make you more likely to develop this condition: ? Having a family history of endometriosis. ? Having never given . ? Starting your menstrual period at age 10 or younger. What are the signs or symptoms? Often, there are no symptoms of this condition. If you do have symptoms, they may include: ? Heavier bleeding during menstrual (more content not included)... Normal [facility] Extra Redon 06-08-2024 Tube Collected Yes Invalid Interpretation Code [facility] Comment on above: Performed By: #### 1 [id number], [id number], [id number] ####[facility] (DEFAULT)[address] [place] [address] Test Urine 1on U Preg Negative [facility] Comment on above: Performed By: #### 1 [id number], [id number] ####[facility] (DEFAULT)[address] [place] [address] 689[address] U Preg Internal Control Pass Normal [facility] Comment on above: Performed By: #### 1 [id number], [id number] ####[facility] (DEFAULT)[address] [place] [address]30 Progress Note - Nurseon - Progress Note - Nurse This nurse mary sinclair with patient that she had a ride home to which pt replied my . Pt did not want to wait in her room instead she walked outside to await her ride. This nurse did not see . and pt was instructed that it was not safe for her to drive she should wait for him. [Electronically Signed on: 06/08/2024 22:16 EST] Radha Shabazz RN [Verified on: 06/08/2024 22:16 EST] Radha Shabazz RN [facility] UA w Culture if Ind Standard on 06-08-2024 Breakpoint UA [facility] Comment on above: Performed By: #### 1 [id number], [id number] ####[facility] (DEFAULT)[address] [place] [address] 14629 Color (U) Straw [facility] Comment on above: Performed By: #### 1 [id number], [id number] ####[facility] (DEFAULT)[address] [place] [address] 74843 Culture? Not Indicated Invalid Interpretation Code [facility] Comment on above: Result Comment: Resu lt created by rule GL_MAGR_ADD_UA_CULT1 Result created by rule GL_MAGR_ADD_UA_CULT1 Performed By: #### 1 [id number], [id number] ####[facility] (DEFAULT)[address] [place] [address] Glucose (U) [Mass/Vol] Negative Normal [facility] Comment on above: Performed By: #### 1 [id number], [id number] ####[facility] (DEFAULT)[address] [place] [address] Ketones Ql (U) Negative [facility] Comment on above: Performed By: #### 1 [id number], [id number] ####[facility] (DEFAULT)[address] [place] [address] Micro? Not Indicated Invalid Interpretation Code [facility] Comment on above: Result Comment: Resu lt created by rule GL_MAGR_ADD_UA_MICRO Result created by rule GL_MAGR_ADD_UA_MICRO Performed By: #### 1 [id number], [id number] ####[facility] (DEFAULT)[address] [place] [address] UA Bilirubin Negative Normal [facility] Comment on above: Performed By: #### 1 [id number], [id number] ####[facility] (DEFAULT)[address] [place] [address] UA Blood Negative Normal [facility] Comment on above: Performed By: #### 1 [id number], [id number] ####[facility] (DEFAULT)[address] [place] [address] UA Clarity CLEAR Normal CLEAR [facility] Comment on above: Performed By: #### 1 [id number], [id number] ####[facility] (DEFAULT)[address] [place] [address] UA Leuk Est Negative Normal [facility] Comment on above: Performed By: #### 1 [id number], [id number] ####[facility] (DEFAULT)[address] [place] [address] 80525 UA Nitrite Negative Normal NEGATIVE [facility] Comment on above: Performed By: #### 1 [id number], [id number] ####[facility] (DEFAULT)[address] [place] [address] 39650 UA pH 7.0 Normal 5-8 [facility] Comment on above: Performed By: #### 1 [id number], [id number] ####[facility] (DEFAULT)[address] [place] [address] 31175 UA Protein Negative Normal NEGATIVE [facility] Comment on above: Performed By: #### 1 [id number], [id number] ####[facility] (DEFAULT)[address] [place] [address] 29122 UA Spec Grav <=1.005 Normal 1.001-1.035 [facility] Comment on above: Performed By: #### 1 [id number], [id number] ####[facility] (DEFAULT)[address] [place] [address] 08277 UA Urobilinogen 0.2 mg/dL Normal 0.2-1.0 [facility] Comment on above: Performed By: #### 1 [id number], [id number] ####[facility] (DEFAULT)[address] [place] [address] 44243 Urine Source Clean Catch Normal [facility] Comment on above: Performed By: #### 1 [id number], [id number] ####[facility] (DEFAULT)[address] [place] [address] 68340 CBC AND AUTO DIFFon 12-24-20 24 ABSOLUTE BASOPHIL 0.1 X10E9/L Normal 0.0-0.2 [facility] Comment on above: Performed By: #### 2 106-3 #### [facility] ([id number]) [address] [place] [address] 42811 ABSOLUTE NEUTROPHIL 4.9 X10E9/L Normal 1.5-6.6 [facility] Comment on above: Performed By: #### 2 106-3 #### [facility] ([id number]) [address] [place] [address] 09170 Basophils/100 WBC (Bld) 0.9 % Normal [facility] Comment on above: Performed By: #### 2 106-3 #### [facility] ([id number]) [address] [place] [address] 00748 Eosinophils (Bld) [#/Vol] 0.1 10*3/uL Normal 0.0-0.4 [facility] Comment on above: Performed By: #### 2 106-3 #### [facility] ([id number]) [address] [place] [address] 47290 Eosinophils/100 WBC (Bld) 0.7 % Normal [facility] Comment on above: Performed By: #### 2 106-3 #### [facility] ([id number]) [address] [place] [address] 78196 Erythrocyte distribution width (RBC) [Ratio] 19.6 % High 11.5-15.0 [facility] Comment on above: Performed By: #### 2 106-3 #### [facility] ([id number]) [address] [place] [address] 67495 Hematocrit (Bld) [Volume fraction] 35.6 % Normal 35-47 [facility] Comment on above: Performed By: #### 2 106-3 #### [facility] ([id number]) [address] [place] [address] 56550 Hemoglobin (Bld) [Mass/Vol] 11.2 g/dL Low 11.7-15.5 [facility] Comment on above: Performed By: #### 2 106-3 #### [facility] ([id number]) [address] [place] [address] 09211 Lymphocytes (Bld) [#/Vol] 2.5 10*3/uL Normal 1.0-3.5 [facility] Comment on above: Performed By: #### 2 106-3 #### [facility] ([id number]) [address] [place] [address] 10139 Lymphocytes/100 WBC (Bld) 31.5 % Normal [facility] Comment on above: Performed By: #### 2 106-3 #### [facility] ([id number]) [address] [place] [address] 07240 MCH (RBC) [Entitic mass] 22.7 pg Low 27-34 [facility] Comment on above: Performed By: #### 2 106-3 #### [facility] ([id number]) [address] [place] [address] 75871 MCHC (RBC) [Mass/Vol] 31.4 g/dL Low 32-36 [facility] Comment on above: Performed By: #### 2 106-3 #### [facility] ([id number]) [address] [place] [address] 77288 MCV (RBC) [Entitic vol] 72 fL Low 80-[address] [facility] Comment on above: Performed By: #### 2 106-3 #### [facility] ([id number]) [address] [place] [address] 04939 Monocytes (Bld) [#/Vol] 0.4 10*3/uL Normal 0-0.9 [facility] Comment on above: Performed By: #### 2 106-3 #### [facility] ([id number]) [address] [place] [address] 13358 Monocytes/100 WBC (Bld) 5.4 % Normal [facility] Comment on above: Performed By: #### 2 106-3 #### [facility] ([id number]) [address] [place] [address] 95415 Neutrophils/100 WBC (Bld) 61.5 % Normal [facility] Comment on above: Performed By: #### 2 106-3 #### [facility] ([id number]) [address] [place] [address] 40204 Platelet mean volume (Bld) [Entitic vol] 7.7 fL Normal 7-12 [facility] Comment on above: Performed By: #### 2 106-3 #### [facility] ([id number]) [address] [place] [address] 27559 Platelets (Bld) [#/Vol] 451 10*3/uL High 150-450 [facility] Comment on above: Performed By: #### 2 106-3 #### [facility] ([id number]) [address] [place] [address] 25491 RBC COUNT 4.93 X10E12/L Normal 3.80-5.20 [facility] Comment on above: Performed By: #### 2 106-3 #### [facility] ([id number]) [address] [place] [address] 78726 WBC (Bld) [#/Vol] 8.0 10*3/uL Normal 4.0-11.0 [facility] Comment on above: Performed By: #### 2 106-3 #### [facility] ([id number]) [address] [place] [address] 99166 COMPREHENSIVE METABOLIC PANE Van 06-05-2024 Albumin [Mass/Vol] 4.6 g/dL Normal 3.2-5.3 [facility] Comment on above: Performed By: #### 2 106-3 #### [facility] ([id number]) [address] [place] [address] 91734 ALP [Catalytic activity/Vol] 67 U/L Normal 39-130 [facility] Comment on above: Performed By: #### 2 106-3 #### [facility] ([id number]) [address] [place] [address] 19190 ALT [Catalytic activity/Vol] 14 U/L Normal 0-31 [facility] Comment on above: Performed By: #### 2 106-3 #### [facility] ([id number]) [address] [place] [address] 96292 Anion gap [Moles/Vol] 13 mmol/L Normal 5-15 [facility] Comment on above: Performed By: #### 2 106-3 #### [facility] ([id number]) [address] [place] [address] [place] [address] AST [Catalytic activity/Vol] 19 U/L Normal 0-41 [facility] Comment on above: Performed By: #### 2 106-3 #### [facility] ([id number]) [address] [place] [address] 51938 Bilirubin [Mass/Vol] 0.3 mg/dL Normal 0.3-1.2 [facility] Comment on above: Performed By: #### 2 106-3 #### [facility] ([id number]) [address] [place] [address] 99675 Calcium [Mass/Vol] 10.0 mg/dL Normal 8.5-10.5 [facility] Comment on above: Performed By: #### 2 106-3 #### [facility] ([id number]) [address] [place] [address] 18386 Chloride [Moles/Vol] 105 mmol/L Normal 98-109 [facility] Comment on above: Performed By: #### 2 106-3 #### [facility] ([id number]) [address] [place] [address] 98894 CO2 [Moles/Vol] 21 mmol/L Low 22-32 [facility] Comment on above: Performed By: #### 2 106-3 #### [facility] ([id number]) [address] [place] [address] [place] [address] Creatinine [Mass/Vol] 0.97 mg/dL Normal 0.40-1.00 [facility] Comment on above: Result Comment: METH OD TRACEABLE TO IDMS STANDARD Performed By: #### 2 106-3 #### [facility] ([id number]) [address] [place] [address] 16207 GFR/1.73 sq M.predicted among non-blacks MDRD (S/P/Bld) [Vol rate/Area] 77 mL/min/{1.73_m2} Normal >59 [facility] Comment on above: Result Comment: Reported eGFR is based on the CKD-EPI 2020 equation that does not use a race coefficient. Performed By: #### 2 106-3 #### [facility] ([id number]) [address] [place] [address] 90773 Glucose [Mass/Vol] 98 mg/dL Normal 65-99 [facility] Comment on above: Performed By: #### 2 106-3 #### [facility] ([id number]) [address] [place] [address] 25264 Potassium [Moles/Vol] 3.7 mmol/L Normal 3.5-5.0 [facility] Comment on above: Performed By: #### 2 106-3 #### [facility] ([id number]) [address] [place] [address] 16241 Protein [Mass/Vol] 8.3 g/dL High 6.0-8.0 [facility] Comment on above: Performed By: #### 2 106-3 #### [facility] ([id number]) [address] [place] [address] 64147 Sodium [Moles/Vol] 139 mmol/L Normal 134-146 [facility] Comment on above: Performed By: #### 2 106-3 #### [facility] ([id number]) [address] [place] [address] 80722 Urea nitrogen [Mass/Vol] 11 mg/dL Normal 5-23 [facility] Comment on above: Performed By: #### 2 106-3 #### [facility] ([id number]) [address] [place] [address] CT ABDOMEN AND PELVIS W CONT on 06-05-2024 CT ABDOMEN AND PELVIS W CONT CT ABDOMEN AND PELVIS W CONT HISTORY: A 39-year-old female with the history of the right lower quadrant abdominal pain. There is also a history of cholecystectomy and hysterectomy. EXAM/TECHNIQUE: Multidetector spiral CT scan of abdomen and pelvis is performed during intravenous administration of 100 mL of Omnipaque-300. Multiplanar reconstruction images are reformatted. All CT scans at this facility use dose modulation, iterative reconstruction, and/or weight based dosing when appropriate to reduce radiation dose to as low as reasonably achievable. COMPARISON: No prior relevant studies are available for comparison. FINDINGS: The lung bases are clear . Liver is normal in size and configuration. Spleen and pancreas are normal in size and configuration. No focal masses are identified. The gallbladder is normal. There is no evidence of biliary ductal dilatation. The adrenal glands are normal. Both kidneys show excretion of contrast without evidence of hydronephrosis or focal masses. The urinary bladder is unremarkable. The bowel gas pattern is nonobstructive. The appendix is normal. No evidence of intra-abdominal mass or free fluid. The visualized bones are unremarkable. IMPRESSION: 1. Appendix is normal. Nonobstructive bowel gas pattern. 2. Status post cholecystectomy and hysterectomy. 3. No evidence of acute intra-abdominal and intrapelvic pathology. Finalized by Giovanni Lang MD on 06/05/2024 8:30 PM Normal [facility] HCG ( test) Ql (U)o n 06-05-2024 Beta HCG ( test) Ql (U) Negative Normal NEG [facility] Comment on above: Performed By: #### 2 106-3 #### [facility] ([id number]) [address] [place] [address] LIPASEon 06-05-2024 Lipase [Catalytic activity/Vol] 44 U/L High 17-40 [facility] Comment on above: Performed By: #### 2 106-3 #### [facility] ([id number]) [address] [place] [address] [place] [address] URN MACROSCOPIC NURon 2023 BILIRUBIN AUDREY Negative Normal NEG [facility] Comment on above: Performed By: #### 2 106-3 #### [facility] ([id number]) [address] [place] [address] [place] [address] BLOOD/HGB AUDREY Negative Normal NEG [facility] Comment on above: Performed By: #### 2 106-3 #### [facility] ([id number]) [address] [place] [address] [place] [address] GLUCOSE AUDREY Negative Normal NEG [facility] Comment on above: Performed By: #### 2 106-3 #### [facility] ([id number]) [address] [place] [address] [place] [address] KETONES AUDREY Negative Normal NEG [facility] Comment on above: Performed By: #### 2 106-3 #### [facility] ([id number]) [address] [place] [address] [place] [address] LEUKOCYTE ESTERASE AUDREY Negative Normal NEG [facility] Comment on above: Performed By: #### 2 106-3 #### [facility] ([id number]) [address] [place] [address] [place] [address] NITRITE AUDREY Negative Normal NEG [facility] Comment on above: Performed By: #### 2 106-3 #### [facility] ([id number]) [address] [place] [address] [place] [address] PH AUDREY 7.0 Normal 5.0-8.5 [facility] Comment on above: Performed By: #### 2 106-3 #### [facility] ([id number]) [address] [place] [address] [place] [address] PROTEIN AUDREY Negative Normal NEG [facility] Comment on above: Performed By: #### 2 106-3 #### [facility] ([id number]) [address] [place] [address], [place] [address] SPECIFIC GRAVITY AUDREY 1.015 Normal 1.003-1.035 [facility] Comment on above: Performed By: #### 2 106-3 #### [facility] ([id number]) [address] [place] [address], [place] [address] UROBILINOGEN AUDREY 1.0 eu/dL Normal <1.1 [facility] Comment on above: Performed By: #### 2 106-3 #### [facility] ([id number]) [address] [place] [address] 28515 CBC with Diffon 05-28-2024 Morphology Edson (Bld) [Interp] SLIGHT Normal [facility] Comment on above: Result Comment: MICR OCYTOSIS Performed By: #### C P, CDP #### [facility] [address] [place] [address] Breaker Tender: Jennifer Freire MD Urinalysis, Routineon 2023 Bilirubin, SemiQt,Ur Negative Normal NEG [facility] Comment on above: Performed By: #### U A, JAIMEEO #### [facility] [address] [place], [place] [id number] Breaker Tender: Jennifer Freire MD Blood, Urine TRACE Abnormal NEG [facility] Comment on above: Performed By: #### U A, UMICAO #### [facility] [address] [place] [address] Breaker Tender: Jennifer Freire MD Clarity (U) Clear Normal CLEAR [facility] Comment on above: Performed By: #### U A, UMICAO #### [facility] [address] [facility] [place] [address] Breaker Tender: Jennifer Freire MD Color (U) Yellow Normal YEL [facility] Comment on above: Performed By: #### U A, UMICAO #### [facility] [address] [place], [place] [id number] Breaker Tender: Jennifer Freire MD Comment Normal [facility] Comment on above: Performed By: #### U A, UMICAO #### [facility] [address] [place], [place] [id number] Breaker Tender: Jennifer Freire MD Glucose Ql (U) Negative Normal NEG [facility] Comment on above: Performed By: #### U A, UMICAO #### [facility] [address] [place], [place] [id number] Breaker Tender: Jennifer Freire MD Ketones Ql (U) Negative Normal NEG [facility] Comment on above: Performed By: #### U A, UMICAO #### [facility] [address] [place], [place] [id number] Breaker Tender: Jennifer Freire MD Leukocyte esterase Test strip Ql (U) Negative Normal NEG [facility] Comment on above: Performed By: #### U A, UMICAO #### [facility] [address] [place], [place] [id number] Breaker Tender: Jennifer Freire MD Nitrite,Ur Negative Normal NEG [facility] Comment on above: Performed By: #### U A, UMICAO #### [facility] [address] [place] [address] Breaker Tender: Jennifer Freire MD PH,Ur 7.0 Normal 5.0-8.0 [facility] Comment on above: Performed By: #### U A, UMICAO #### [facility] [address] [place], [place] [id number] Breaker Tender: Jennifer Freire MD Protein Ql (U) Negative Normal NEG [facility] Comment on above: Performed By: #### U A, UMICAO #### [facility] [address] [place] [id number] Breaker Tender: Jennifer Freire MD Spec. [place],Ur 1.010 Normal 1.005-1.030 [facility] Comment on above: Performed By: #### U A, UMICAO #### [facility] [address] [id number] Breaker Tender: Jennifer Freire MD Urobilinogen,Ur Normal Normal 0.0-1.0 [facility] Comment on above: Performed By: #### U A, UMICAO #### [facility] [address] [place] [address] Breaker Tender: Jennifer Freire MD Urinalysis,Microon ----- Normal [facility] Comment on above: Performed By: #### U A, UMICAO #### [facility] [address] [place] [address] Breaker Tender: Jennifer Freire MD Urine RBC's 2 TO 5 Normal 0-2 [facility] Comment on above: Performed By: #### U A, UMICAO #### [facility] [address] [place] [address] Breaker Tender: Jennifer Freire MD Urine WBC's None Seen Normal 0 [facility] Comment on above: Performed By: #### U A, UMICAO #### [facility] [address] [place] [address] Breaker Tender: Jennifer Freire MD CBC with Diffon 05-27-2024 Abs. Basophil 0.03 k/uL Normal 0.00-0.20 [facility] Comment on above: Performed By: #### C P, CDP #### [facility] [address] [id number] Breaker Tender: Jennifer Freire MD Abs.Imm.Granulocyte 0.01 k/uL Normal 0.00-0.30 [facility] Comment on above: Performed By: #### C P, CDP #### [facility] [address] [place] [address] Breaker Tender: Jennifer Freire MD Abs.Neutrophil (Seg) 4.33 k/uL Normal 2.5-7.0 [facility] Comment on above: Performed By: #### C P, CDP #### [facility] [address] [place] [address] Breaker Tender: Jennifer Freire MD Basophils/100 WBC (Bld) 0 % Normal 0-2 [facility] Comment on above: Performed By: #### C P, CDP #### [facility] [address] [id number] Breaker Tender: Jennifer Freire MD Eosinophils (Bld) [#/Vol] 0.08 10*3/uL Normal 0.00-0.40 [facility] Comment on above: Performed By: #### C P, CDP #### [facility] [address] [place] [address] Breaker Tender: Jennifer Freire MD Eosinophils/100 WBC (Bld) 1 % Normal 0-5 [facility] Comment on above: Performed By: #### C P, CDP #### [facility] [address] [id number] Breaker Tender: Jennifer Freire MD Erythrocyte distribution width (RBC) [Ratio] 17.2 % High 12.1-15.2 [facility] Comment on above: Performed By: #### C P, CDP #### [facility] [address] [place] [address] Breaker Tender: Jennifer Freire MD Hematocrit (Bld) [Volume fraction] 36.4 % Normal 36.0-46.0 [facility] Comment on above: Performed By: #### C P, CDP #### [facility] [address] [place] [address] Breaker Tender: Jennifer Freire MD Hemoglobin (Bld) [Mass/Vol] 11.4 g/dL Low 12.0-16.0 [facility] Comment on above: Performed By: #### C P, CDP #### [facility] [address] [place], [place] [id number] Breaker Tender: Jennifer Freire MD Immature granulocytes/100 WBC (Bld) 0 % Normal 0-5 [facility] Comment on above: Performed By: #### C P, CDP #### [facility] [address] [place] [address] Breaker Tender: Jennifer Freire MD Lymphocytes (Bld) [#/Vol] 3.24 10*3/uL Normal 1.00-4.80 [facility] Comment on above: Performed By: #### C P, CDP #### [facility] [address] [place] [address] Breaker Tender: Jennifer Freire MD Lymphocytes/100 WBC (Bld) 40 % Normal 15-40 [facility] Comment on above: Performed By: #### C P, CDP #### [facility] [address] [place] [address] Breaker Tender: Jennifer Freire MD MCH (RBC) [Entitic mass] 22.6 pg Low 26.0-34.0 [facility] Comment on above: Performed By: #### C P, CDP #### [facility] [address] [place] [address] Breaker Tender: Jennifer Freire MD MCHC (RBC) [Mass/Vol] 31.3 g/dL Normal 31.0-37.0 [facility] Comment on above: Performed By: #### C P, CDP #### [facility] [address] [place] [address] Breaker Tender: Jennifer Freire MD MCV (RBC) [Entitic vol] 72.2 fL Low 80.0-100.0 [facility] Comment on above: Performed By: #### C P, CDP #### [facility] [address] [place], [place] [id number] (825) Breaker Tender: Jennifer Freire MD Monocytes (Bld) [#/Vol] 0.51 10*3/uL Normal 0.00-1.00 [facility] Comment on above: Performed By: #### C P, CDP #### [facility] [address] [place] [address] Breaker Tender: Jennifer Freire MD Monocytes/100 WBC (Bld) 6 % Normal 4-8 [facility] Comment on above: Performed By: #### C P, CDP #### [facility] [address] [place], [place] [id number] (251) Breaker Tender: Jennifer Freire MD Neutrophil (Seg) 53 % Normal 47-75 [facility] Comment on above: Performed By: #### C P, CDP #### [facility] [address] [place] [address] Breaker Tender: Jennifer Freire MD Platelet mean volume (Bld) [Entitic vol] 9.3 fL Normal 6.0-12.0 [facility] Comment on above: Performed By: #### C P, CDP #### [facility] [address] [place] [address] Breaker Tender: Jennifer Freire MD Platelets (Bld) [#/Vol] 583 10*3/uL High 140-450 [facility] Comment on above: Performed By: #### C P, CDP #### [facility] [address] [place], [place] [phone] (346) Breaker Tender: Jennifer Freire MD RBC (Bld) [#/Vol] 5.04 10*6/uL Normal 4.00-5.20 [facility] Comment on above: Performed By: #### C P, CDP #### [facility] [address] [place], [place] [id number] Breaker Tender: Jennifer Freire MD WBC (Bld) [#/Vol] 8.2 10*3/uL Normal 3.5-11.0 [facility] Comment on above: Performed By: #### C P, CDP #### [facility] [address] [place], [place] [id number] Breaker Tender: Jennifer Freire MD Comp Metabolic Profon 2023 Albumin [Mass/Vol] 4.7 g/dL Normal 3.5-5.2 [facility] Comment on above: Performed By: #### C P, CDP #### [facility] [address] [place], [place] [id number] Breaker Tender: Jennifer Freire MD Alkaline Phos 92 U/L Normal 35-104 [facility] Comment on above: Performed By: #### C P, CDP #### [facility] [address] [place], [place] [id number] Breaker Tender: Jennifer Freire MD ALT [Catalytic activity/Vol] 16 U/L Normal 5-33 [facility] Comment on above: Performed By: #### C P, CDP #### [facility] [address] [place], [place] [id number] Breaker Tender: Jennifer Freire MD Anion gap [Moles/Vol] 14 mmol/L Normal 9-17 [facility] Comment on above: Performed By: #### C P, CDP #### [facility] [address] [place], [place] [id number] Breaker Tender: Jennifer Freire MD AST [Catalytic activity/Vol] 17 U/L Normal <32 [facility] Comment on above: Performed By: #### C P, CDP #### [facility] [address] [place], [place] [id number] Breaker Tender: Jennifer Freire MD Bilirubin [Mass/Vol] 0.2 mg/dL Low 0.3-1.2 [facility] Comment on above: Performed By: #### C P, CDP #### [facility] [address] [place], [place] [id number] Breaker Tender: Jennifer Freire MD BUN/CRE Ratio 9 Normal 9-20 [facility] Comment on above: Performed By: #### C P, CDP #### [facility] [address] [place] [address] Breaker Tender: Jennifer Freire MD Calcium [Mass/Vol] 9.9 mg/dL Normal 8.6-10.4 [facility] Comment on above: Performed By: #### C P, CDP #### [facility] [address] [place], [place] [id number] Breaker Tender: Jennifer Freire MD Chloride [Moles/Vol] 106 mmol/L Normal 98-107 [facility] Comment on above: Performed By: #### C P, CDP #### [facility] [address] [place] [address] Breaker Tender: Jennifer Freire MD CO2 [Moles/Vol] 22 mmol/L Normal 20-31 [facility] Comment on above: Performed By: #### C P, CDP #### [facility] [address] [place], [place] [id number] Breaker Tender: Jennifer Freire MD Creatinine [Mass/Vol] 0.8 mg/dL Normal 0.5-0.9 [facility] Comment on above: Performed By: #### C P, CDP #### [facility] [address] [place], [place] [id number] Breaker Tender: Jennifer Freire MD GFR/1.73 sq M.predicted among non-blacks MDRD (S/P/Bld) [Vol rate/Area] mL/min/{1.73_m2} Normal >60 [facility] Comment on above: Result Comment: These results [...] renal tubular secretion. Performed By: #### C P, CDP #### [facility] [address] [place] [address] Breaker Tender: Jennifer Freire MD Glucose [Mass/Vol] 93 mg/dL Normal 70-99 [facility] Comment on above: Performed By: #### C P, CDP #### [facility] [address] [place] [address] Breaker Tender: Jennifer Freire MD Potassium [Moles/Vol] 3.7 mmol/L Normal 3.7-5.3 [facility] Comment on above: Performed By: #### C P, CDP #### [facility] [address] [place] [address] Breaker Tender: Jennifer Freire MD Protein [Mass/Vol] 8.3 g/dL Normal 6.4-8.3 [facility] Comment on above: Performed By: #### C P, CDP #### [facility] [address] [place] [address] Breaker Tender: Jennifer Freire MD Sodium [Moles/Vol] 142 mmol/L Normal 135-144 [facility] Comment on above: Performed By: #### C P, CDP #### [facility] [address] [place], [place] [id number] Breaker Tender: Jennifer Freire MD Urea nitrogen [Mass/Vol] 7 mg/dL Normal 6-20 [facility] Comment on above: Performed By: #### C P, CDP #### [facility] [address] [place] [address] Breaker Tender: Jennifer Freire MD Surgical Pathologyon 024 Surgical Pathology Normal [facility] Comment on above: Result Comment: [facility] [address] [place] [address] Surgical Pathology Consultation Patient Name:ANTONIA NOYOLA:1985 (Age: 39)Gender:FTaken:4Reported:04/17/2024hysician(s):Adiel Aparicio M.D. ([phone])Copy To: Rec. #:[id number]: #[id number] Final Pathologic Diagnosis Uterus, cervix, bilateral fallopian tubes, and bilateral ovaries, TAHBSO: Cervix, negative for dysplasia Inactive endometrium with benign endometrial polyp Bilateral ovaries with endometriosis/endometrioma Unremarkable fallopian tubes Report Electronically Signed Out nsk/04/17/2024Evelin Joshi MD Interpretation performed at [facility], [address] [place] [address], License number: [id number]. Clinical History Endometriosis/ pelvic pain. Gross Description Received in formalin labeled MAGALI, uterus, cervix, bilateral fallopian tubes and bilateral ovaries is a hysterectomy specimen consisting of uterus with attached cervix and attached bilateral adnexa. The adnexa is amputated, and the uterus is 81 g, 9.2 cm from fundus to ectocervical mucosa, 4.5 cm from cornu to cornu and 3.6 cm from anterior to posterior. The serosa is ferguson-estevez and remarkable for focal fibrous adhesions on the posterior wall. The cervix is 3 cm in length by 3.5 cm in diameter. The ectocervical mucosa is ferguson-estevez, smooth and glistening, with a centrally located 1.1 cm slitlike os. The uterus is bivalved to reveal a triangular endometrial cavity, 4.4 cm in length by 2.6 cm in width, sectioned to reveal an edematous endometrium with a depth of approximately 0.4 cm. The 1.5 cm myometrium is pink-ferguson and diffusely trabeculated. There is a 0.3 cm white-ferguson, whirled nodule located on the posterior wall. The right fimbriated fallopian tube is 6.5 cm in length x 0.7 cm in diameter. The serosa is estevez-purple, smooth and glistening and sectioning reveals a pinpoint lumen. The right intact ovary is 3 x 2.7 x 1.8 cm. The cortical surface is variegated purple-estevez, partially cerebriform and predominantly cystic. Sectioning reveals a 1.7 cm midline cyst filled with clear serous fluid and no solid components or papillary excrescences are identified. The remaining cut surfaces are pink-ferguson and hemorrhagic with multiple cysts ranging from 0.2 to 0.4 cm in greatest dimension. The left fimbriated fallopian tube is 6 cm in length x 0.8 cm in diameter. The serosa is estevez-purple, smooth and glistening and sectioning reveals a pinpoint lumen. The left ovary is partially fragmented and 3.7 x 2.5 x 2.2 cm 1 reapproximated. The cortical surface is variegated purple-estevez and diffusely hemorrhagic with ragged fibrous adhesions. Sectioning reveals a 2 cm encapsulated nodule entirely filled with red-brown, hemorrhagic turbid fluid Superintendent Horticulture sections are submitted in cassettes A-L, as: A anterior cervix B posterior cervix C anterior uterine wall D anterior endomyometrium E posterior uterine wall with whirled nodule F posterior endomyometrium G right fallopian tube with entire fimbriated end H-I right ovary J left fallopian tube with entire fimbriated end K-L left ovary (12, ss, [id number], m6) MW mxw/04/06/2024WAK Specimen(s) Received Uterus, cervix, bilateral fallopian tubes, and bilateral ovaries Fee Codes(s): 1; 40805 CBC AND AUTO DIFFon 24-20 24 ABSOLUTE BASOPHIL 0.1 X10E9/L Normal 0.0-0.2 [facility] Comment on above: Performed By: #### N #### [facility] ([id number]) [address] [place] [address] 59683 ABSOLUTE NEUTROPHIL 4.5 X10E9/L Normal 1.5-6.6 [facility] Comment on above: Performed By: #### N UM #### [facility] ([id number]) [address] [place] [address] 23402 Basophils/100 WBC (Bld) 1.1 % Normal [facility] Comment on above: Performed By: #### N UM #### [facility] ([id number]) [address] [place] [address] 91411 Eosinophils (Bld) [#/Vol] 0.0 10*3/uL Normal 0.0-0.4 [facility] Comment on above: Performed By: #### N UM #### [facility] ([id number]) [address] [place] [address] 16557 Eosinophils/100 WBC (Bld) 0.5 % Normal [facility] Comment on above: Performed By: #### N UM #### [facility] ([id number]) [address] [place] [address] 67759 Erythrocyte distribution width (RBC) [Ratio] 18.3 % High 11.5-15.0 [facility] Comment on above: Performed By: #### N UM #### [facility] ([id number]) [address] [place] [address] 11687 Hematocrit (Bld) [Volume fraction] 32.1 % Low 35-47 [facility] Comment on above: Performed By: #### N UM #### [facility] ([id number]) [address] [place] [address] 91545 Hemoglobin (Bld) [Mass/Vol] 10.2 g/dL Low 11.7-15.5 [facility] Comment on above: Performed By: #### N UM #### [facility] ([id number]) [address] [place] [address] 60620 Lymphocytes (Bld) [#/Vol] 2.5 10*3/uL Normal 1.0-3.5 [facility] Comment on above: Performed By: #### N UM #### [facility] ([id number]) [address] [place] [address] 81553 Lymphocytes/100 WBC (Bld) 33.1 % Normal [facility] Comment on above: Performed By: #### N UM #### [facility] ([id number]) [address] [place] [address] 90909 MCH (RBC) [Entitic mass] 22.6 pg Low 27-34 [facility] Comment on above: Performed By: #### N UM #### [facility] ([id number]) [address] [place] [address] 90098 MCHC (RBC) [Mass/Vol] 31.7 g/dL Low 32-36 [facility] Comment on above: Performed By: #### N UM #### [facility] ([id number]) [address] [place] [address] 93900 MCV (RBC) [Entitic vol] 71 fL Low 80-[address] [facility] Comment on above: Performed By: #### N UM #### [facility] ([id number]) [address] [place] [address] 53798 Monocytes (Bld) [#/Vol] 0.5 10*3/uL Normal 0-0.9 [facility] Comment on above: Performed By: #### N UM #### [facility] ([id number]) [address] [place] [address] 14656 Monocytes/100 WBC (Bld) 6.2 % Normal [facility] Comment on above: Performed By: #### N UM #### [facility] ([id number]) [address] [place] [address] 72130 Neutrophils/100 WBC (Bld) 59.1 % Normal [facility] Comment on above: Performed By: #### N UM #### [facility] ([id number]) [address] [place] [address] 83915 Platelet mean volume (Bld) [Entitic vol] 7.6 fL Normal 7-12 [facility] Comment on above: Performed By: #### N UM #### [facility] ([id number]) [address] [place] [address] 61869 Platelets (Bld) [#/Vol] 582 10*3/uL High 150-450 [facility] Comment on above: Performed By: #### N UM #### [facility] ([id number]) [address] [place] [address] 12103 RBC COUNT 4.51 X10E12/L Normal 3.80-5.20 [facility] Comment on above: Performed By: #### N UM #### [facility] ([id number]) [address] [place] [address] 65584 WBC (Bld) [#/Vol] 7.7 10*3/uL Normal 4.0-11.0 [facility] Comment on above: Performed By: #### N UM #### [facility] ([id number]) [address] [place] [address] 49151 COMPREHENSIVE METABOLIC PANE Van 04-05-2024 Albumin [Mass/Vol] 4.3 g/dL Normal 3.2-5.3 [facility] Comment on above: Performed By: #### N UM #### [facility] ([id number]) [address] [place] [address] 19731 ALP [Catalytic activity/Vol] 65 U/L Normal 39-130 [facility] Comment on above: Performed By: #### N UM #### [facility] ([id number]) [address] [place] [address] 73146 ALT [Catalytic activity/Vol] 20 U/L Normal 0-31 [facility] Comment on above: Performed By: #### N UM #### [facility] ([id number]) [address] [place] [address] [place] [address] Anion gap [Moles/Vol] 8 mmol/L Normal 5-15 [facility] Comment on above: Performed By: #### N UM #### [facility] ([id number]) [address] [place] [address] 26470 AST [Catalytic activity/Vol] 24 U/L Normal 0-41 [facility] Comment on above: Performed By: #### N UM #### [facility] ([id number]) [address] [place] [address], [place] [address] Bilirubin [Mass/Vol] 0.8 mg/dL Normal 0.3-1.2 [facility] Comment on above: Performed By: #### N UM #### [facility] ([id number]) [address] [place] [address] 64496 Calcium [Mass/Vol] 8.9 mg/dL Normal 8.5-10.5 [facility] Comment on above: Performed By: #### N UM #### [facility] ([id number]) [address] [place] [address] [place] [address] Chloride [Moles/Vol] 104 mmol/L Normal 98-109 [facility] Comment on above: Performed By: #### N UM #### [facility] ([id number]) [address] [place] [address], [place] [address] CO2 [Moles/Vol] 22 mmol/L Normal 22-32 [facility] Comment on above: Performed By: #### N UM #### [facility] ([id number]) [address] [place] [address] 28014 Creatinine [Mass/Vol] 0.62 mg/dL Normal 0.40-1.00 [facility] Comment on above: Result Comment: METH OD TRACEABLE TO IDMS STANDARD Performed By: #### N UM #### [facility] ([id number]) [address] [place] [address] 59006 eGFR (CKD-EPI) NON-RACE DEPENDENT >90 Normal >59 [facility] Comment on above: Result Comment: Reported eGFR is based on the CKD-EPI 2020 equation that does not use a race coefficient. Performed By: #### N UM #### [facility] ([id number]) [address] [place] [address] 23197 Glucose [Mass/Vol] 107 mg/dL High 65-99 [facility] Comment on above: Performed By: #### N UM #### [facility] ([id number]) [address] [place] [address] 44893 Potassium [Moles/Vol] 3.7 mmol/L Normal 3.5-5.0 [facility] Comment on above: Performed By: #### N UM #### [facility] ([id number]) [address] [place] [address] 99167 Protein [Mass/Vol] 8.0 g/dL Normal 6.0-8.0 [facility] Comment on above: Performed By: #### N UM #### [facility] ([id number]) [address] [place] [address] 00777 Sodium [Moles/Vol] 134 mmol/L Normal 134-146 [facility] Comment on above: Performed By: #### N UM #### [facility] ([id number]) [address] [place] [address] 37180 Urea nitrogen [Mass/Vol] 8 mg/dL Normal 5-23 [facility] Comment on above: Performed By: #### N UM #### [facility] ([id number]) [address] [place] [address] ABDOMEN AND PELVIS WO CON Ton [...] on 04/05/2024 3:57 PM Normal [facility] HCG ( test) Ql (U)o n 04-05-2024 Beta HCG ( test) Ql (U) Negative Normal NEG [facility] Comment on above: Performed By: #### N UM #### [facility] ([id number]) [address] [place] [address] 12631 LIPASEon 04-05-2024 Lipase [Catalytic activity/Vol] 30 U/L Normal 17-40 [facility] Comment on above: Performed By: #### N UM #### [facility] ([id number]) [address] [place] [address] 49249 Lactate (P arely) [Moles/Vol]o n 04-05-2024 LACTATE W/REFLEX 1.7 mmol/L Normal 0.4-2.0 [facility] Comment on above: Result Comment: Result did not trigger repeat Lactate, re-order if needed. Performed By: #### N UM #### [facility] ([id number]) [address] [place] [address] [place] [address] URN MACROSCOPIC NURon 2023 BILIRUBIN AUDREY Negative Normal NEG [facility] Comment on above: Performed By: #### N UM #### [facility] ([id number]) [address] [place] [address] [place] [address] BLOOD/HGB AUDREY Negative Normal NEG [facility] Comment on above: Performed By: #### N UM #### [facility] ([id number]) [address] [place] [address] [place] [address] GLUCOSE AUDREY Negative Normal NEG [facility] Comment on above: Performed By: #### N UM #### [facility] ([id number]) [address] [place] [address] [place] [address] KETONES AUDREY Negative Normal NEG [facility] Comment on above: Performed By: #### N UM #### [facility] ([id number]) [address] [place] [address] [place] [address] LEUKOCYTE ESTERASE AUDREY Negative Normal NEG Pr [facility] Comment on above: Performed By: #### N UM #### [facility] ([id number]) [address] [place] [address] [place] [address] NITRITE AUDREY Negative Normal NEG [facility] Comment on above: Performed By: #### N UM #### [facility] ([id number]) [address] [place] [address] [place] [address] PH AUDREY 7.0 Normal 5.0-8.5 [facility] Comment on above: Performed By: #### N UM #### [facility] ([id number]) [address] [place] [address] [place] [address] PROTEIN AUDREY Negative Normal NEG [facility] Comment on above: Performed By: #### N UM #### [facility] ([id number]) [address] [place] [address] [place] [address] SPECIFIC GRAVITY AUDREY 1.010 Normal 1.003-1.035 [facility] Comment on above: Performed By: #### N UM #### [facility] ([id number]) [address] [place] [address] UROBILINOGEN AUDREY 0.2 eu/dL Normal <1.1 [facility] Comment on above: Performed By: #### N UM #### [facility] ([id number]) [address] [place] [address] US PELVIC WITH TRANSVAGINAL AND DUPLEXon 04-05-2024 [...] on 04/05/2024 3:03 PM Normal [facility] CBC AND AUTO DIFFon 03-28-20 ABSOLUTE BASOPHIL 0.1 X10E9/L Normal 0.0-0.2 [facility] Comment on above: Performed By: #### C BCA, CMP #### [facility] ([id number]) [address], [address] [place] [address] ABSOLUTE NEUTROPHIL 2.4 X10E9/L Normal 1.5-6.6 [facility] Comment on above: Performed By: #### C BCA, CMP #### [facility] ([id number]) [address], [address] [place] [address] Basophils/100 WBC (Bld) 1.1 % Normal [facility] Comment on above: Performed By: #### C BCA, CMP #### [facility] ([id number]) [address] [place] [address] Eosinophils (Bld) [#/Vol] 0.1 10*3/uL Normal 0.0-0.4 [facility] Comment on above: Performed By: #### C BCA, CMP #### [facility] ([id number]) [address], [address] [place] [address] Eosinophils/100 WBC (Bld) 2.7 % Normal [facility] Comment on above: Performed By: #### C BCA, CMP #### [facility] ([id number]) [address], [address] [place] [address] Erythrocyte distribution width (RBC) [Ratio] 18.7 % High 11.5-15.0 [facility] Comment on above: Performed By: #### C BCA, CMP #### [facility] ([id number]) [address], [address] [place] [address] Hematocrit (Bld) [Volume fraction] 31.3 % Low 35-47 [facility] Comment on above: Performed By: #### C BCA, CMP #### [facility] ([id number]) [address], [address] [place] [address] Hemoglobin (Bld) [Mass/Vol] 9.9 g/dL Low 11.7-15.5 [facility] Comment on above: Performed By: #### C HEATH, CMP #### [facility] ([id number]) [address] [place] [address] Lymphocytes (Bld) [#/Vol] 2.2 10*3/uL Normal 1.0-3.5 [facility] Comment on above: Performed By: #### C BCA, CMP #### [facility] ([id number]) [address] [place] [address] Lymphocytes/100 WBC (Bld) 42.4 % Normal [facility] Comment on above: Performed By: #### C HEATH, CMP #### [facility] ([id number]) [address] [place] [address] MCH (RBC) [Entitic mass] 23.2 pg Low 27-34 [facility] Comment on above: Performed By: #### C HEATH, CMP #### [facility] ([id number]) [address] [place] [address] MCHC (RBC) [Mass/Vol] 31.7 g/dL Low 32-36 [facility] Comment on above: Performed By: #### C HEATH, CMP #### [facility] ([id number]) [address], [address] [place] [address] MCV (RBC) [Entitic vol] 73 fL Low 80-100 P [facility] Comment on above: Performed By: #### C BCA, CMP #### [facility] ([id number]) [address] [place] [address] Monocytes (Bld) [#/Vol] 0.4 10*3/uL Normal 0-0.9 [facility] Comment on above: Performed By: #### C BCA, CMP #### [facility] ([id number]) [address] [place] [address] Monocytes/100 WBC (Bld) 7.9 % Normal [facility] Comment on above: Performed By: #### C HEATH, CMP #### [facility] ([id number]) [address] [place] [address] Neutrophils/100 WBC (Bld) 45.9 % Normal [facility] Comment on above: Performed By: #### C HEATH, CMP #### [facility] ([id number]) [address] [place] [address] Platelet mean volume (Bld) [Entitic vol] 8.0 fL Normal 7-12 [facility] Comment on above: Performed By: #### C HEATH, CMP #### [facility] ([id number]) [address] [address] [place] [address] Platelets (Bld) [#/Vol] 457 10*3/uL High 150-450 [facility] Comment on above: Performed By: #### C HEATH, CMP #### [facility] ([id number]) [address] [place] [address] RBC COUNT 4.28 X10E12/L Normal 3.80-5.20 [facility] Comment on above: Performed By: #### C HEATH, CMP #### [facility] ([id number]) [address] [place] [address] WBC (Bld) [#/Vol] 5.2 10*3/uL Normal 4.0-11.0 [facility] Comment on above: Performed By: #### C HEATH, CMP #### [facility] ([id number]) [address] [address] [place] [address] CBC auto differentialon 03-13 Basophils (Bld) [#/Vol] 0.1 10*3/uL [facility] Basophils/100 WBC (Bld) 1.1 % [facility] Eosinophils (Bld) [#/Vol] 0.1 10*3/uL [facility] Eosinophils/100 WBC (Bld) 2.7 % [facility] Erythrocyte distribution width (RBC) [Ratio] 18.7 % High 11.5 - 15.0 % [facility] Hematocrit (Bld) [Volume fraction] 31.3 % Low 35 - 47 % [facility] Hemoglobin (Bld) [Mass/Vol] 9.9 g/dL Low 11.7 - 15.5 g/dL [facility] Interpretation and review of laboratory results Abnormal [facility] Lymphocytes (Bld) [#/Vol] 2.2 10*3/uL [facility] Lymphocytes/100 WBC (Bld) 42.4 % [facility] MCH (RBC) [Entitic mass] 23.2 pg Low 27 - 34 pg [facility] MCHC (RBC) [Mass/Vol] 31.7 g/dL Low 32 - 3 6 g/dL [facility] MCV (RBC) [Entitic vol] 73 fL Low 80 - 100 fL [facility] Monocytes (Bld) [#/Vol] 0.4 10*3/uL [facility] Monocytes/100 WBC (Bld) 7.9 % P [facility] Neutrophils (Bld) [#/Vol] 2.4 10*3/uL [facility] Neutrophils/100 WBC (Bld) 45.9 % [facility] Platelet mean volume (Bld) [Entitic vol] 8 fL 7 - [address] [facility] Platelets (Bld) [#/Vol] 457 10*3/uL High [facility] RBC (Bld) [#/Vol] 4.28 10*6/uL [facility] WBC corrected for nucl RBC Auto (Bld) [#/Vol] 5.2 [facility] COMPREHENSIVE METABOLIC PANE Van 03-28-2024 Albumin [Mass/Vol] 4.0 g/dL Normal 3.2-5.3 [facility] Comment on above: Performed By: #### C BCA, CMP #### [facility] ([id number]) [address] [place] [address] ALP [Catalytic activity/Vol] 61 U/L Normal 39-130 [facility] Comment on above: Performed By: #### C BCA, CMP #### [facility] ([id number]) [address] [place] [address] ALT [Catalytic activity/Vol] 12 U/L Normal 0-31 [facility] Comment on above: Performed By: #### C BCA, CMP #### [facility] ([id number]) [address] [place] [address] Anion gap [Moles/Vol] 10 mmol/L Normal 5-15 [facility] Comment on above: Performed By: #### C BCA, CMP #### [facility] ([id number]) [address] [place] [address] AST [Catalytic activity/Vol] 14 U/L Normal 0-41 [facility] Comment on above: Performed By: #### C BCA, CMP #### [facility] ([id number]) [address] [place] [address] Bilirubin [Mass/Vol] 0.3 mg/dL Normal 0.3-1.2 [facility] Comment on above: Performed By: #### C BCA, CMP #### [facility] ([id number]) [address] [place] [address] Calcium [Mass/Vol] 9.0 mg/dL Normal 8.5-10.5 [facility] Comment on above: Performed By: #### C BCA, CMP #### [facility] ([id number]) [address], [address] [place] [address] Chloride [Moles/Vol] 107 mmol/L Normal 98-109 [facility] Comment on above: Performed By: #### C BCA, CMP #### [facility] ([id number]) [address] [place] [address] CO2 [Moles/Vol] 24 mmol/L Normal 22-32 [facility] Comment on above: Performed By: #### C BCA, CMP #### [facility] ([id number]) [address] [place] [address] Creatinine [Mass/Vol] 0.72 mg/dL Normal 0.40-1.00 [facility] Comment on above: Result Comment: METH OD TRACEABLE TO IDMS STANDARD Performed By: #### C BCA, CMP #### [facility] ([id number]) [address] [place] [address] eGFR (CKD-EPI) NON-RACE DEPENDENT >90 Normal >59 [facility] Comment on above: Result Comment: Reported eGFR is based on the CKD-EPI 2020 equation that does not use a race coefficient. Performed By: #### C BCA, CMP #### [facility] ([id number]) [address] [place] [address] Glucose [Mass/Vol] 101 mg/dL High 65-99 [facility] Comment on above: Performed By: #### C BCA, CMP #### [facility] ([id number]) [address] [place] [address] Potassium [Moles/Vol] 3.9 mmol/L Normal 3.5-5.0 [facility] Comment on above: Performed By: #### C BCA, CMP #### [facility] ([id number]) [address] [place] [address] Protein [Mass/Vol] 6.9 g/dL Normal 6.0-8.0 [facility] Comment on above: Performed By: #### C BCA, CMP #### [facility] ([id number]) [address] [place] [address] Sodium [Moles/Vol] 141 mmol/L Normal 134-146 [facility] Comment on above: Performed By: #### C BCA, CMP #### [facility] ([id number]) [address] [place] [address] Urea nitrogen [Mass/Vol] 10 mg/dL Normal 5-23 [facility] Comment on above: Performed By: #### C BCA, CMP #### [facility] ([id number]) [address] [place] [address] Comprehensive metabolic pane van 03-28-2024 Albumin [Mass/Vol] 4 g/dL 3.2 - 5.3 g/dL [facility] ALP [Catalytic activity/Vol] 61 U/L 39 - 130 U/L [facility] ALT No additional P-5'-P [Catalytic activity/Vol] 12 U/L 0 - 31 U/L [facility] Anion gap [Moles/Vol] 10 mmol/L 5 - 15 mmol/L [facility] AST [Catalytic activity/Vol] 14 U/L 0 - 41 U/L [facility] Bilirubin [Mass/Vol] 0.3 mg/dL 0.3 - 1 .2 mg/dL [facility] Calcium [Mass/Vol] 9 mg/dL 8.5 - 10. 5 mg/dL [facility] Chloride [Moles/Vol] 107 mmol/L 98 - 10 9 mmol/L [facility] CO2 [Moles/Vol] 24 mmol/L 22 - 32 mmol/L [facility] Creatinine [Mass/Vol] 0.72 mg/dL 0.40 - 1.00 mg/dL [facility] Comment on above: METHOD TRACEABLE TO IDMS STANDARD eGFR (CKD-EPI)non-race dependent - PINF [facility] Comment on above: Reported eGFR is based on the CKD-EPI 2020 equation that does not use a race coefficient. Glucose [Mass/Vol] 101 mg/dL High 65 - 99 mg/dL [facility] Interpretation and review of laboratory results Abnormal [facility] Potassium [Moles/Vol] 3.9 mmol/L 3.5 - 5.0 mmol/L [facility] Protein [Mass/Vol] 6.9 g/dL 6.0 - 8.0 g/dL [facility] Sodium [Moles/Vol] 141 mmol/L 134 - 146 mmol/L [facility] Urea nitrogen [Mass/Vol] 10 mg/dL 5 - 23 mg/dL [facility] CBC AND AUTO DIFFon 03-07-20 ABSOLUTE BASOPHIL 0.1 X10E9/L Normal 0.0-0.2 [facility] Comment on above: Performed By: #### N UM #### [facility] ([id number]) [address] [place] [address] ABSOLUTE NEUTROPHIL 3.0 X10E9/L Normal 1.5-6.6 [facility] Comment on above: Performed By: #### N UM #### [facility] ([id number]) [address] [place] [address] Basophils/100 WBC (Bld) 1.1 % Normal [facility] Comment on above: Performed By: #### N UM #### [facility] ([id number]) [address] [place] [address] Eosinophils (Bld) [#/Vol] 0.1 10*3/uL Normal 0.0-0.4 [facility] Comment on above: Performed By: #### N UM #### [facility] ([id number]) [address] [place] [address] Eosinophils/100 WBC (Bld) 1.0 % Normal [facility] Comment on above: Performed By: #### N UM #### [facility] ([id number]) [address] [place] [address] Erythrocyte distribution width (RBC) [Ratio] 17.6 % High 11.5-15.0 [facility] Comment on above: Performed By: #### N UM #### [facility] ([id number]) [address] [place] [address] Hematocrit (Bld) [Volume fraction] 34.1 % Low 35-47 [facility] Comment on above: Performed By: #### N UM #### [facility] ([id number]) [address] [place] [address] Hemoglobin (Bld) [Mass/Vol] 10.9 g/dL Low 11.7-15.5 [facility] Comment on above: Performed By: #### N UM #### [facility] ([id number]) [address] [place] [address] Lymphocytes (Bld) [#/Vol] 2.0 10*3/uL Normal 1.0-3.5 [facility] Comment on above: Performed By: #### N UM #### [facility] ([id number]) [address] [place] [address] Lymphocytes/100 WBC (Bld) 36.4 % Normal [facility] Comment on above: Performed By: #### N UM #### [facility] ([id number]) [address] [place] [address] MCH (RBC) [Entitic mass] 22.7 pg Low 27-34 [facility] Comment on above: Performed By: #### N UM #### [facility] ([id number]) [address] [place] [address] MCHC (RBC) [Mass/Vol] 31.8 g/dL Low 32-36 [facility] Comment on above: Performed By: #### N UM #### [facility] ([id number]) [address] [place] [address] MCV (RBC) [Entitic vol] 71 fL Low 80-[address] [facility] Comment on above: Performed By: #### N UM #### [facility] ([id number]) [address] [place] [address], [place] [address] Monocytes (Bld) [#/Vol] 0.4 10*3/uL Normal 0-0.9 [facility] Comment on above: Performed By: #### N UM #### [facility] ([id number]) [address] [place] [address] Monocytes/100 WBC (Bld) 6.9 % Normal [facility] Comment on above: Performed By: #### N UM #### [facility] ([id number]) [address] [place] [address] Neutrophils/100 WBC (Bld) 54.6 % Normal [facility] Comment on above: Performed By: #### N UM #### [facility] ([id number]) [address] [place] [address] [place] [address] Platelet mean volume (Bld) [Entitic vol] 7.7 fL Normal 7-12 [facility] Comment on above: Performed By: #### N UM #### [facility] ([id number]) [address] [place] [address] Platelets (Bld) [#/Vol] 514 10*3/uL High 150-450 [facility] Comment on above: Performed By: #### N UM #### [facility] ([id number]) [address] [place] [address] RBC COUNT 4.78 X10E12/L Normal 3.80-5.20 [facility] Comment on above: Performed By: #### N UM #### [facility] ([id number]) [address] [place] [address] WBC (Bld) [#/Vol] 5.5 10*3/uL Normal 4.0-11.0 [facility] Comment on above: Performed By: #### N UM #### [facility] ([id number]) [address] [place] [address] COMPREHENSIVE METABOLIC PANE Van 03-07-2024 Albumin [Mass/Vol] 4.5 g/dL Normal 3.2-5.3 [facility] Comment on above: Performed By: #### N UM #### [facility] ([id number]) [address] [place] [address] ALP [Catalytic activity/Vol] 64 U/L Normal 39-130 [facility] Comment on above: Performed By: #### N UM #### [facility] ([id number]) [address] [place] [address] ALT [Catalytic activity/Vol] 18 U/L Normal 0-31 [facility] Comment on above: Performed By: #### N UM #### [facility] ([id number]) [address] [place] [address] Anion gap [Moles/Vol] 8 mmol/L Normal 5-15 [facility] Comment on above: Performed By: #### N UM #### [facility] ([id number]) [address] [place] [address] AST [Catalytic activity/Vol] 19 U/L Normal 0-41 [facility] Comment on above: Performed By: #### N UM #### [facility] ([id number]) [address] [place] [address] Bilirubin [Mass/Vol] 0.7 mg/dL Normal 0.3-1.2 [facility] Comment on above: Performed By: #### N UM #### [facility] ([id number]) [address] [place] [address] Calcium [Mass/Vol] 9.4 mg/dL Normal 8.5-10.5 [facility] Comment on above: Performed By: #### N UM #### [facility] ([id number]) [address] [place] [address] Chloride [Moles/Vol] 105 mmol/L Normal 98-109 [facility] Comment on above: Performed By: #### N UM #### [facility] ([id number]) [address] [place] [address] CO2 [Moles/Vol] 21 mmol/L Low 22-32 [facility] Comment on above: Performed By: #### N UM #### [facility] ([id number]) [address] [place] [address] Creatinine [Mass/Vol] 0.68 mg/dL Normal 0.40-1.00 [facility] Comment on above: Result Comment: METH OD TRACEABLE TO IDMS STANDARD Performed By: #### N UM #### [facility] ([id number]) [address] [place] [address] eGFR (CKD-EPI) NON-RACE DEPENDENT >90 Normal >59 [facility] Comment on above: Result Comment: Reported eGFR is based on the CKD-EPI 1 equation that does not use a race coefficient. Performed By: #### N UM #### [facility] ([id number]) [address] [place] [address] Glucose [Mass/Vol] 107 mg/dL High 65-99 [facility] Comment on above: Performed By: #### N UM #### [facility] ([id number]) [address] [place] [address] Potassium [Moles/Vol] 3.8 mmol/L Normal 3.5-5.0 [facility] Comment on above: Performed By: #### N UM #### [facility] ([id number]) [address] [place] [address]38 Protein [Mass/Vol] 8.6 g/dL High 6.0-8.0 [facility] Comment on above: Performed By: #### N UM #### [facility] ([id number]) [address] [place] [address] 11866 Sodium [Moles/Vol] 134 mmol/L Normal 134-146 [facility] Comment on above: Performed By: #### N UM #### [facility] ([id number]) [address] [place] [address]484 Urea nitrogen [Mass/Vol] 10 mg/dL Normal 5-23 [facility] Comment on above: Performed By: #### N UM #### [facility] ([id number]) [address] [place] [address] 82498 HCG ( test) Ql (U)o n 03-07-2024 Beta HCG ( test) Ql (U) Negative Normal NEG [facility] Comment on above: Performed By: #### C BCA, CMP #### [facility] ([id number]) [address] [place] [address] 11850 URN MACROSCOPIC NURon 2023 BILIRUBIN AUDREY Negative Normal NEG [facility] Comment on above: Performed By: #### C BCA, CMP #### [facility] ([id number]) [address] [place] [address]281 BLOOD/HGB AUDREY Trace Abnormal NEG [facility] Comment on above: Performed By: #### C BCA, CMP #### [facility] ([id number]) [address] [place] [address]272 GLUCOSE AUDREY Negative Normal NEG [facility] Comment on above: Performed By: #### C BCA, CMP #### [facility] ([id number]) [address] [place] [address] KETONES AUDREY Negative Normal NEG [facility] Comment on above: Performed By: #### C HEATH, CMP #### [facility] ([id number]) [address] [place] [address] 52523 LEUKOCYTE ESTERASE AUDREY Negative Normal NEG Pr [facility] Comment on above: Performed By: #### C HEATH, CMP #### [facility] ([id number]) [address] [place] [address] 81682 NITRITE AUDREY Negative Normal NEG [facility] Comment on above: Performed By: #### C HEATH, CMP #### [facility] ([id number]) [address] [place] [address] 86209 PH AUDREY 6.0 Normal 5.0-8.5 [facility] Comment on above: Performed By: #### C HEATH, CMP #### [facility] ([id number]) [address] [place] [address] PROTEIN AUDREY Negative Normal NEG [facility] Comment on above: Performed By: #### C HEATH, CMP #### [facility] ([id number]) [address] [place] [address]131 SPECIFIC GRAVITY AUDREY 1.010 Normal 1.003-1.035 [facility] Comment on above: Performed By: #### C BCA, CMP #### [facility] ([id number]) [address] [place] [address] 91349 UROBILINOGEN AUDREY 0.2 eu/dL Normal <1.1 [facility] Comment on above: Performed By: #### C BCA, CMP #### [facility] ([id number]) [address] [place] [address]609 CBCon 02-24-2024 ABSOLUTE BAS 0.1 10*3/uL Normal 0.0-0.2 [facility] ABSOLUTE EOS 0.2 10*3/uL Normal 0.0-0.7 [facility] ABSOLUTE NEUTROPHIL COUNT 3.2 10*3/uL Normal 1.4-6.5 [facility] Basophils/100 WBC (Bld) 0.7 % Normal 0.0-2.0 [facility] DTYPE AUTO DIFF Normal [facility] Eosinophils/100 WBC (Bld) 2.3 % Normal 0.0-11.0 [facility] Lymphocytes (Bld) [#/Vol] 3.5 10*3/uL High 1.2-3.4 [facility] Lymphocytes/100 WBC (Bld) 47.1 % Normal 20.0-55.0 [facility] Monocytes (Bld) [#/Vol] 0.5 10*3/uL Normal 0.0-0.7 [facility] Monocytes/100 WBC (Bld) 7.4 % Normal 0.0-10.0 [facility] Neutrophils/100 WBC (Bld) 42.5 % Normal 37.0-75.0 [facility] Erythrocyte distribution width (RBC) [Ratio] 17.1 % High 11.5-14.5 [facility] Hematocrit (Bld) [Volume fraction] 33.6 % Low 36.0-48.0 [facility] Hemoglobin (Bld) [Mass/Vol] 10.3 g/dL Low 12.0-16.0 [facility] MCH (RBC) [Entitic mass] 22.7 pg Low 26.0-35.0 [facility] MCHC (RBC) [Mass/Vol] 30.8 g/dL Normal 27.0-37.0 [facility] MCV (RBC) [Entitic vol] 73.5 fL Low 80.0-100.0 [facility] Platelet mean volume (Bld) [Entitic vol] 7.9 fL Normal 7.4-11.0 [facility] Platelets (Bld) [#/Vol] 466 10*3/uL High 130-400 [facility] RBC (Bld) [#/Vol] 4.57 10*6/uL Normal 4.0-5.4 [facility] WBC (Bld) [#/Vol] 7.4 10*3/uL Normal 3.6-11.0 [facility] CBC, EDIF, PLATELETon 2023 ABSOLUTE BASOPHIL COUNT 0.1 10*3/uL 0.0 - 0.2 10*3/uL [facility] Basophils/100 WBC (Bld) 0.7 % 0.0 - 2.0 % [facility] Differential cell count method Nom (Bld) AUTO DIFF % [facility] Eosinophils (Bld) [#/Vol] 0.2 10*3/uL 0.0 - 0.7 10*3/uL [facility] Eosinophils/100 WBC (Bld) 2.3 % 0.0 - 11.0 % [facility] Erythrocyte distribution width (RBC) [Ratio] 17.1 % High 11.5 - 14.5 % [facility] Hematocrit (Bld) [Volume fraction] 33.6 % Low 36.0 - 48.0 % [facility] [facility] Hem[facility] (Bld) [Mass/Vol] 10.3 g/dL Low [facility] Interpretation and review of laboratory results Abnormal [facility] Lymphocytes (Bld) [#/Vol] 3.5 10*3/uL High 1.2 - 3.4 10*3/uL [facility] Lymphocytes/100 WBC (Bld) 47.1 % 20.0 - 55.0 % [facility] MCH (RBC) [Entitic mass] 22.7 pg Low 26.0 - 35.0 PG [facility] MCHC (RBC) [Mass/Vol] 30.8 g/dL [facility] MCV (RBC) [Entitic vol] 73.5 fL Low [facility] Monocytes (Bld) [#/Vol] 0.5 10*3/uL 0.0 - 0.7 10*3/uL [facility] Monocytes/100 WBC (Bld) 7.4 % 0.0 - 10.0 % [facility] Neutrophils (Bld) [#/Vol] 3.2 10*3/uL 1.4 - 6.5 10*3/uL [facility] Neutrophils/100 WBC (Bld) 42.5 % 37.0 - 75.0 % [facility] Platelet mean volume (Bld) [Entitic vol] 7.9 fL [facility] Platelets (Bld) [#/Vol] 466 10*3/uL High 130 - 400 10*3/uL [facility] RBC (Bld) [#/Vol] 4.57 10*6/uL 4.0 - 5.4 10*6/uL [facility] WBC (Bld) [#/Vol] 7.4 10*3/uL 3.6 - 11.0 10*3/uL [facility] CMP FASTINGon 02-24-2024 A:G RATIO 1.1 RATIO Low 1.3-2.2 [facility] ALBUMIN 4.1 G/dl Normal 3.5-5.0 [facility] ALP [Catalytic activity/Vol] 62 U/L Normal 38-126 [facility] ALT [Catalytic activity/Vol] 23 U/L Normal <35 [facility] AST [Catalytic activity/Vol] 45 U/L High 14-36 [facility] Bilirubin [Mass/Vol] 0.3 mg/dL Normal 0.2-1.3 [facility] Calcium [Mass/Vol] 8.8 mg/dL Normal 8.4-10.2 [facility] Chloride [Moles/Vol] 110 mmol/L High 98-107 [facility] Comment on above: Result Comment: Salvador carlson note: Triglyceride levels of 600mg/dL or higher may positively bias chloride results by approximately 2.1 mmol CO2 [Moles/Vol] 23 mmol/L Normal 22-30 [facility] Creatinine [Mass/Vol] 0.80 mg/dL Normal 0.7-1.2 [facility] EST. GFR, 104 ml/min/1.73sq.m [facility] EST. GFR,Non 86 ml/min/1.73sq.m [facility] GFR Information Average GFR for 30-3 9 years old = 107. Normal [facility] Comment on above: Result Comment: Vehicle [employer] franklin Kidney disease, GFR = <60. Kidney failure, GFR = <15. The GFR estimate is not adjusted for extreme body surface area or acute process, nor has it been validated for women or ethnic groups other than and . Glucose [Mass/Vol] 81 mg/dL Normal 70-100 [facility] Comment on above: Result Comment: NORMAL <100 mg/dL PREDIABETES 101-126 mg/dL DIABETES 126 mg/dL or higher Potassium [Moles/Vol] 3.9 mmol/L Normal 3.5-5.1 [facility] Protein [Mass/Vol] 7.7 g/dL Normal 6.3-8.2 [facility] Sodium [Moles/Vol] 141 mmol/L Normal 137-145 [facility] Urea nitrogen [Mass/Vol] 9 mg/dL Normal 7-20 [facility] COMPREHENSIVE METABOLIC PANE Van 02-24-2024 Albumin [Mass/Vol] 4.1 G/dl 3.5 - 5.0 G/dl [facility] Albumin/Globulin [Mass ratio] 1.1 {ratio} Low [facility] ALP [Catalytic activity/Vol] 62 U/L [facility] ALT [Catalytic activity/Vol] 23 U/L NINF [facility] AST [Catalytic activity/Vol] 45 U/L High [facility] Bilirubin [Mass/Vol] 0.3 mg/dL [facility] Calcium [Mass/Vol] 8.8 mg/dL [facility] Chloride [Moles/Vol] 110 mmol/L High [facility] Comment on above: Please note: Triglyc eride levels of 600mg/dL or higher may positively bias chloride results by approximately 2.1 mmol CO2 [Moles/Vol] 23 mmol/L [facility] Creatinine [Mass/Vol] 0.80 mg/dL [facility] GFR COMMENT Average GFR for 30-3 9 years old = 107. [facility] Comment on above: Chronic Kidney disea se, GFR = <60. Kidney failure, GFR = <15. The GFR estimate is not adjusted for extreme body surface area or acute process, nor has it been validated for women or ethnic groups other than and . GFR/1.73 sq M.predicted among blacks MDRD (S/P/Bld) [Vol rate/Area] 104 mL/min/{1.73_m2} ml/min/1.73 sq.m [facility] GFR/1.73 sq M.predicted among non-blacks MDRD (S/P/Bld) [Vol rate/Area] 86 mL/min/{1.73_m2} ml/min/1.73 sq.m [facility] Glucose post fast [Mass/Vol] 81 mg/dL [facility] Comment on above: NORMAL <100 mg/dL PREDIABETES 101-126 mg/dL DIABETES 126 mg/dL or higher Interpretation and review of laboratory results Abnormal [facility] Potassium [Moles/Vol] 3.9 mmol/L [facility] Protein [Mass/Vol] 7.7 g/dL [facility] Sodium [Moles/Vol] 141 mmol/L [facility] Urea nitrogen [Mass/Vol] 9 mg/dL [facility] HCG ( test) Ql (U)o n 02-24-2024 [facility] HCG QUALITATIVE, URINEon HCG ( test) Ql (U) Negative [facility] No Panel Informationon 02-23 Interpretation and review of laboratory results Abnormal [facility] URINALYSIS, MACROon 02-24-20 24 Bilirubin Ql (U) Negative NEGATIVE [facility] Clarity (U) CLEAR CLEAR [facility] Color (U) YELLOW YELLOW [facility] Glucose Test strip (U) [Mass/Vol] Negative NEGATIVE mg/dl [facility] Hemoglobin Ql (U) Negative NEGATIVE [facility] Ketones (U) [Mass/Vol] Negative NEGAT NAYE mg/dl [facility] Leukocyte esterase Test strip Ql (U) MODERATE Abnormal NEGATIVE [facility] Nitrite Ql (U) Negative NEGATIVE [facility] pH (U) 6.0 [pH] 5.0 - 7.0 [facility] Protein Ql (U) Negative NEGATIVE mg/dl [facility] Specific gravity (U) [Rel density] 1.010 1.010 - 1.025 [facility] Urobilinogen (U) [Mass/Vol] 0.2 mg/dL [facility] URINE HCG QUALon 02-24-2024 Beta HCG ( test) Ql (U) Negative Normal [facility] URINE MACROSCOPICon 02-24-20 24 Bilirubin Ql (U) Negative Normal NEGATIVE [facility] Clarity (U) CLEAR Normal CLEAR [facility] Color (U) YELLOW Normal YELLOW [facility] Glucose Ql (U) Negative Normal NEGATIVE [facility] pH (U) 6.0 [pH] Normal 5.0-7.0 [facility] URINE HEMOGLOBIN Negative Normal NEGATIVE [facility] URINE KETONE Negative Normal NEGATIVE [facility] URINE LEUKOTEST MODERATE Abnormal NEGATIVE [facility] URINE NITRATES Negative Normal NEGATIVE [facility] URINE SPEC GRAVITY 1.010 Normal 1.010-1.025 [facility] URINE TOTAL PROTEIN Negative Normal NEGATIVE [facility] Urobilinogen Qn (U) 0.2 {Ivone'U}/dL Normal 0.2-1.0 [facility] URINE MICROSCOPICon 02-24-20 24 Bacteria LM.HPF (Urine sed) [#/Area] TRACE Abnormal NEGATIVE [facility] Casts LM.LPF (Urine sed) [#/Area] NONE NONE /LPF [facility] Crystals LM Nom (Urine sed) NONE NONE [facility] Epithelial cells LM Ql (Urine sed) 5 TO 10 /HPF [facility] Mucus Ql (Urine sed) Negative NEGATIVE [facility] RBC LM.HPF (Urine sed) [#/Area] Negative NEGATIVE /HPF [facility] Urine sediment comments LM Edson (Urine sed) CULTURE CRITERIA NOT MET, NO CULTURE PERFORMED. [facility] WBC LM.HPF (Urine sed) [#/Area] 1 TO 5 NEGATIVE /HPF [facility] BACTERIA TRACE Abnormal NEGATIVE [facility] CASTS NONE Normal NONE [facility] CRYSTAL NONE Normal NONE [facility] Epithelial cells LM Ql (Urine sed) 5 TO 10 Normal [facility] Mucus Ql (Urine sed) Negative Normal NEGATIVE [facility] URINE COMMENT CULTURE CRITERIA NOT MET, NO CULTURE PERFORMED. Normal [facility] URINE RBC'S Negative Normal NEGATIVE [facility] URINE WBC'S 1 TO 5 Normal NEGATIVE [facility] CBCon 02-16-2024 ABSOLUTE BAS 0.1 10*3/uL Normal 0.0-0.2 [facility] ABSOLUTE EOS 0.0 10*3/uL Normal 0.0-0.7 [facility] ABSOLUTE NEUTROPHIL COUNT 2.7 10*3/uL Normal 1.4-6.5 [facility] Basophils/100 WBC (Bld) 1.4 % Normal 0.0-2.0 [facility] DTYPE AUTO DIFF Normal [facility] Eosinophils/100 WBC (Bld) 0.5 % Normal 0.0-11.0 [facility] Lymphocytes (Bld) [#/Vol] 2.1 10*3/uL Normal 1.2-3.4 [facility] Lymphocytes/100 WBC (Bld) 40.3 % Normal 20.0-55.0 [facility] Monocytes (Bld) [#/Vol] 0.3 10*3/uL Normal 0.0-0.7 [facility] Monocytes/100 WBC (Bld) 5.6 % Normal 0.0-10.0 [facility] Neutrophils/100 WBC (Bld) 52.2 % Normal 37.0-75.0 [facility] Erythrocyte distribution width (RBC) [Ratio] 17.0 % High 11.5-14.5 [facility] Hematocrit (Bld) [Volume fraction] 35.2 % Low 36.0-48.0 [facility] Hemoglobin (Bld) [Mass/Vol] 10.9 g/dL Low 12.0-16.0 [facility] MCH (RBC) [Entitic mass] 22.6 pg Low 26.0-35.0 [facility] MCHC (RBC) [Mass/Vol] 30.9 g/dL Normal 27.0-37.0 [facility] MCV (RBC) [Entitic vol] 73.0 fL Low 80.0-100.0 [facility] Platelet mean volume (Bld) [Entitic vol] 7.3 fL Low 7.4-11.0 [facility] Platelets (Bld) [#/Vol] 529 10*3/uL High 130-400 [facility] RBC (Bld) [#/Vol] 4.81 10*6/uL Normal 4.0-5.4 [facility] WBC (Bld) [#/Vol] 5.1 10*3/uL Normal 3.6-11.0 [facility] CBC, EDIF, PLATELETon 2023 ABSOLUTE BASOPHIL COUNT 0.1 10*3/uL 0.0 - 0.2 10*3/uL [facility] Basophils/100 WBC (Bld) 1.4 % 0.0 - 2.0 % [facility] Differential cell count method Nom (Bld) AUTO DIFF % [facility] Eosinophils (Bld) [#/Vol] 0.0 10*3/uL 0.0 - 0.7 10*3/uL [facility] Eosinophils/100 WBC (Bld) 0.5 % 0.0 - 11.0 % [facility] Erythrocyte distribution width (RBC) [Ratio] 17.0 % High 11.5 - 14.5 % [facility] Hematocrit (Bld) [Volume fraction] 35.2 % Low 36.0 - 48.0 % [facility] Hemoglobin (Bld) [Mass/Vol] 10.9 g/dL Low [facility] Interpretation and review of laboratory results Abnormal [facility] Lymphocytes (Bld) [#/Vol] 2.1 10*3/uL 1.2 - 3.4 10*3/uL [facility] Lymphocytes/100 WBC (Bld) 40.3 % 20.0 - 55.0 % [facility] MCH (RBC) [Entitic mass] 22.6 pg Low 26.0 - 35.0 PG [facility] MCHC (RBC) [Mass/Vol] 30.9 g/dL [facility] MCV (RBC) [Entitic vol] 73.0 fL Low A [facility] Monocytes (Bld) [#/Vol] 0.3 10*3/uL 0.0 - 0.7 10*3/uL [facility] Monocytes/100 WBC (Bld) 5.6 % 0.0 - 10.0 % [facility] Neutrophils (Bld) [#/Vol] 2.7 10*3/uL 1.4 - 6.5 10*3/uL [facility] Neutrophils/100 WBC (Bld) 52.2 % 37.0 - 75.0 % [facility] Platelet mean volume (Bld) [Entitic vol] 7.3 fL Low [facility] Platelets (Bld) [#/Vol] 529 10*3/uL High 130 - 400 10*3/uL [facility] RBC (Bld) [#/Vol] 4.81 10*6/uL 4.0 - 5.4 10*6/uL [facility] WBC (Bld) [#/Vol] 5.1 10*3/uL 3.6 - 11.0 10*3/uL [facility] CHEM 7 FASTINGon 02-16-2024 Chloride [Moles/Vol] 109 mmol/L High 98-107 [facility] Comment on above: Result Comment: Salvador carlson note: Triglyceride levels of 600mg/dL or higher may positively bias chloride results by approximately 2.1 mmol CO2 [Moles/Vol] 22 mmol/L Normal 22-30 [facility] Creatinine [Mass/Vol] 0.70 mg/dL Normal 0.7-1.2 [facility] EST. GFR, 121 ml/min/1.73sq.m [facility] EST. GFR,Non 100 ml/min/1.73sq.m [facility] GFR Information Average GFR for 30-3 9 years old = 107. Normal [facility] Comment on above: Result Comment: Vehicle Upholsterer franklin Kidney disease, GFR = <60. Kidney failure, GFR = <15. The GFR estimate is not adjusted for extreme body surface area or acute process, nor has it been validated for women or ethnic groups other than and . Glucose [Mass/Vol] 106 mg/dL High 70-100 [facility] Comment on above: Result Comment: NORMAL <100 mg/dL PREDIABETES 101-126 mg/dL DIABETES 126 mg/dL or higher Potassium [Moles/Vol] 3.8 mmol/L Normal 3.5-5.1 [facility] Sodium [Moles/Vol] 139 mmol/L Normal 137-145 [facility] Urea nitrogen [Mass/Vol] 8 mg/dL Normal 7-20 [facility] CHEM 7 (LYTES,BUN,CREA,GLUC) on 02-16-2024 Chloride [Moles/Vol] 109 mmol/L High [facility] Comment on above: Please note: Triglyc eride levels of 600mg/dL or higher may positively bias chloride results by approximately 2.1 mmol CO2 [Moles/Vol] 22 mmol/L [facility] Creatinine [Mass/Vol] 0.70 mg/dL [employer] [employer] [facility] GFR COMMENT Average GFR for 30-3 9 years old = 107. [facility] Comment on above: Chronic Kidney disea se, GFR = <60. Kidney failure, GFR = <15. The GFR estimate is not adjusted for extreme body surface area or acute process, nor has it been validated for women or ethnic groups other than and . GFR/1.73 sq M.predicted among blacks MDRD (S/P/Bld) [Vol rate/Area] 121 mL/min/{1.73_m2} ml/min/1.73 sq.m [facility] GFR/1.73 sq M.predicted among non-blacks MDRD (S/P/Bld) [Vol rate/Area] 100 mL/min/{1.73_m2} ml/min/1.73 sq.m [facility] [employer] [facility] Glucose post fast [Mass/Vol] 106 mg/dL High [facility] Comment on above: NORMAL <100 mg/dL PREDIABETES 101-126 mg/dL DIABETES 126 mg/dL or higher Potassium [Moles/Vol] 3.8 mmol/L [facility] Sodium [Moles/Vol] 139 mmol/L [facility] Urea nitrogen [Mass/Vol] 8 mg/dL [facility] CT ABDOMEN/PELVIS WITH CONTR Agustín 02-16-2024 [...] pain COMPARISON: CT abdomen and pelvis: 09/20/2023 FINDINGS: Lower chest: The lower lungs are [...] bony lesion or other acute osseous abnormality. ___ IMPRESSION: 1. Status post cholecystectomy with slight compensatory dilatation of the intrahepatic bile ducts. 2. There is no acute intra-abdominal inflammatory process, bowel obstruction, or mass lesion. 3. There is no obstructive uropathy. Normal [facility] CT Abdomen and Pelvis W [...] pain COMPARISON: CT abdomen and pelvis: 09/20/2023 FINDINGS: Lower chest: The lower lungs are [...] bony lesion or other acute osseous abnormality. ___ RADIOLOGY Jadon Ashraf MD - 02/16/2024 EXAM: [...] pain COMPARISON: CT abdomen and pelvis: 09/20/2023 FINDINGS: Lower chest: The lower lungs are [...] bony lesion or other acute osseous abnormality. ___ IMPRESSION IMPRESSION: 1. Status post cholecystectomy with slight compensatory dilatation of the intrahepatic bile ducts. 2. There is no acute intra-abdominal inflammatory process, bowel obstruction, or mass lesion. 3. There is no obstructive uropathy. [facility] Radiology Study observation (narrative) [facility] CT Abdomen and Pelvis W cont rast IVOrdered By: Jadon Ashraf on 02-16-2024 [facility] Work Phone: HCG ( test) Ql (U)o n 02-16-2024 [facility] HCG QUALITATIVE, URINEon HCG ( test) Ql (U) Negative [facility] HEPATIC FUNCTION PANELon Albumin [Mass/Vol] 4.5 g/dL [facility] ALP [Catalytic activity/Vol] 71 U/L [facility] ALT [Catalytic activity/Vol] 24 U/L NINF [facility] AST [Catalytic activity/Vol] 27 U/L [facility] Bilirubin [Mass/Vol] 0.5 mg/dL [facility] Bilirubin.direct [Mass/Vol] 0.5 mg/dL High [facility] Protein [Mass/Vol] 8.2 g/dL [facility] LIPASEon 02-16-2024 Lipase [Catalytic activity/Vol] 127 U/L 23 - 300 U/L [facility] LIPASE,SERUMon 02-16-2024 LIPASE,SERUM 127 U/L Normal 23-300 [facility] LIVER PANELon 02-16-2024 Albumin [Mass/Vol] 4.5 g/dL Normal 3.5-5.0 [facility] ALP [Catalytic activity/Vol] 71 U/L Normal 38-126 [facility] ALT [Catalytic activity/Vol] 24 U/L Normal <35 [facility] AST [Catalytic activity/Vol] 27 U/L Normal 14-36 [facility] Bilirubin [Mass/Vol] 0.5 mg/dL Normal 0.2-1.3 [facility] Bilirubin.indirect [Mass/Vol] 0.5 mg/dL High 0-0.4 [facility] Protein [Mass/Vol] 8.2 g/dL Normal 6.3-8.2 [facility] No Panel Informationon 02-15 Interpretation and review of laboratory results Abnormal [facility] PROTIMEon 02-16-2024 INR Coag (PPP) [Relative time] 0.89 {INR} Normal 0.88-1.14 [facility] Comment on above: Result Comment: 2.0-3.0 THERAPEUTIC RANGE 2.5-3.5 MECHANICAL VALVE RANGE PT Coag (PPP) [Time] 12.2 s Normal 11.8-14.4 [facility] PROTIME-INRon 02-16-2024 INR Coag (PPP) [Relative time] 0.89 {INR} 0.88 - 1.14 [facility] Comment on above: 2.0-3.0 THERAPEUTIC RANGE 2.5-3.5 MECHANICAL VALVE RANGE PT Coag (PPP) [Time] 12.2 s [facility] Portable XR Chest Viewson IMPRESSION: 1. No [...] No free air collections underneath the diaphragms. [facility] Radiology Study observation (narrative) [facility] Portable XR Chest ViewsOrder ed By: Davi Cheng on 02-16-2024 [facility] Work Phone: URINE HCG QUALon 02-16-2024 Beta HCG ( test) Ql (U) Negative Normal [facility] XR CHEST 1 VIEW PORTABLEon 0 02-16-2024 [...] free air collections underneath the diaphragms. Normal [facility] ED Clinical Summaryon 2023 ED Clinical Summary ED Clinical Summary [place] [id number] ED Clinical Summary Person Information [facility] Age[facility] 39 Years : 1985 Sex: Female Language: Citizen Of [place] PCP: NONE, XXXX Marital Status: Visit Id: [...] 02/13/2024 01:00:19 ADDRESS: [address] [place] [id number] [facility] DOC NOTES: MEDICAL INFORMATION: Prescriptions Given: New Medications [id number], [address], [place] [id number], [phone] amoxicillin-clavulanat e (Augmentin 875 mg-125 mg Tab) 1 Tablets By Mouth every 12 hours for 7 Days. Refills: 0. Medications to Continue with No Changes Other Medications alprazolam (alprazolam 0.25 mg Tab) budesonide-formoterol (Symbicort 80/4.5 inhalation aerosol with adapter) citalopram (citalopram 20 mg Tab) By Mouth every day. diflunisal (diflunisal 500 mg Tab) 1 Tablets By Mouth every 12 hours. Refills: 0. PATIENT EDUCATION INFORMATION: Instructions: Dental Pain Follow up: With: Address: When: Dental: [facility] [phone] In 3 days 02/16/2024 With: Address: When: Dental: [place] [facility] [phone] In 3 days 02/16/2024 With: Address: When: Dental: [facility] [phone] In 3 days 02/16/2024 DIAGNOSIS: Pain, dental Normal [facility] ED Note-Physicianon 02-13-20 ED Note-Physician ED Note-Physician [...] and was given a short prescription for [place] which she is also taking but states [...] and Complexity of Problems Differential Diagnosis: [] [facility] Data External documents reviewed: N/A My EKG [...] already taking oral Toradol as well as [place]. We discussed using lidocaine and bupivacaine soaked [...] disorders of teeth and supporting structures) Orders: amoxicillin-clavulanat e, 1 tab(s), Oral, q12hr for 7 day(s), 14 tab(s), Refill(s) 0, [id number], 165.1, cm, 02/13/24 0:28:00 EDT, [...] q12hr Follow-up With When Contact Information Dental: [facility] [phone] In 3 days 02/16/2024 EDT Additional Instructions: Dental: [employer] [phone] In 3 days 02/16/2024 EDT Additional Instructions: Dental: [facility] [phone] In 3 days 02/16/2024 EDT Additional Instructions: [...] Diagnostic Results No qualifying data available. Normal [facility] Comment on above: Result Comment: Elec tronically Signed By: Ritesh Heath DO\.br\Date and Time Signed: 02/13/24 00:51 EDT ED Patient Summaryon 024 ED Patient Summary ED Patient Summary [place] [id number] Patient Discharge Instructions Person Information Name: ANTONIA NOYOLA Age: 39 Years Arrival Date: 02/13/2024 00:20:34 Discharge Diagnosis: Pain, dental Primary Care Physician: NONE, XXXX Provider Information Primary Provider: Ritesh Heath DO Advanced Fire Protection Specialist:None The exam and treatment you received in the Emergency Department were for an urgent problem and are not intended as complete care. It is important that you follow up with a doctor, nurse practitioner, or physician?s personal injury legal assistant for ongoing care. If your symptoms become worse or you do not improve as expected and you are unable to reach your usual health care provider, you should return to the Emergency Department. We are available 24 hours a day. ANTONIA NOYOLA has been given the following list of patient education materials, prescriptions and follow-up instructions: Follow-up Instructions: With: Address: When: Dental: [facility] [phone] In 3 days 02/16/2024 With: Address: When: Dental: [place] [facility] [phone] In 3 days 02/16/2024 With: Address: When: Dental: [facility] [phone] In 3 days 02/16/2024 In the event that this physician does not participate in your insurance network, please consult with your insurance company to find a nearby participating provider. Patient Education Materials: Dental Pain A MESSAGE TO ALL PATIENTS REGARDING OPIOIDS PRESCRIPTION OPIOIDS: WHAT YOU NEED TO KNOW Prescription opioids can be used to help relieve lxylsmec-jd-ndfzft pain and are often prescribed following a [...] guidance from the Food and Drug Administration (www.fda.gov/Drugs/Res ourcesForYou). ? Visit www.cdc.gov/drugoverdo se to learn about the risks of opioids abuse and overdose. ? If you believe you may be struggling with addiction, tell your health care professi (more content not included)... Normal [facility] C REACTIVE PROTEINon 024 CRP [Mass/Vol] mg/L Normal 0.000-0.744 [facility] Comment on above: Performed By: #### C BCA, CMP #### [facility] ([id number]) [address] [place] [address], [place] [address] CBC AND AUTO DIFFon 01-27-20 24 ABSOLUTE BASOPHIL 0.1 X10E9/L Normal 0.0-0.2 [facility] Comment on above: Performed By: #### C BCA, CMP, 0-3, , 1985-10, #### [facility] ([id number]) [address] [place] [id number] ABSOLUTE NEUTROPHIL 4.6 X10E9/L Normal 1.5-6.6 [facility] Comment on above: Performed By: #### C BCA, CMP, 0-3, , 1985-10, #### [facility] ([id number]) [address] [place] [id number] Basophils/100 WBC (Bld) 1.0 % Normal [facility] Comment on above: Performed By: #### C BCA, CMP, 3039-3, , 1985-10, #### [facility] ([id number]) [address] [place] [address] Eosinophils (Bld) [#/Vol] 0.1 10*3/uL Normal 0.0-0.4 [facility] Comment on above: Performed By: #### C HEATH, CMP, 3039-3, , 1985-10, #### [facility] ([id number]) [address] [place] [id number] Eosinophils/100 WBC (Bld) 1.8 % Normal [facility] Comment on above: Performed By: #### C BCA, CMP, 0-3, , 1985-10, #### [facility] ([id number]) [address] [place] [address] Erythrocyte distribution width (RBC) [Ratio] 17.1 % High 11.5-15.0 [facility] Comment on above: Performed By: #### C BCA, CMP, 3040-3, 89719-6, 1987-10, #### [facility] ([id number]) [address] [place] [address] 38194 Hematocrit (Bld) [Volume fraction] 34.8 % Low 35-47 [facility] Comment on above: Performed By: #### C BCA, CMP, 0-3, , 1987-10, #### [facility] ([id number]) [address] [place] [address] 06967 Hemoglobin (Bld) [Mass/Vol] 10.9 g/dL Low 11.7-15.5 [facility] Comment on above: Performed By: #### C BCA, CMP, 0-3, , 1987-10, #### [facility] ([id number]) [address] [place] [address] 70708 Lymphocytes (Bld) [#/Vol] 1.9 10*3/uL Normal 1.0-3.5 [facility] Comment on above: Performed By: #### C BCA, CMP, 0-3, , 1987-10, #### [facility] ([id number]) [address] [place] [address] 00445 Lymphocytes/100 WBC (Bld) 26.4 % Normal [facility] Comment on above: Performed By: #### C BCA, CMP, 3040-3, 99164-5, 1987-10, #### [facility] ([id number]) [address] [place] [address] 07009 MCH (RBC) [Entitic mass] 22.7 pg Low 27-34 [facility] Comment on above: Performed By: #### C BCA, CMP, 3040-3, 46263-1, 1987-10, #### [facility] ([id number]) [address] [place] [address] 96812 MCHC (RBC) [Mass/Vol] 31.3 g/dL Low 32-36 [facility] Comment on above: Performed By: #### C BCA, CMP, 3040-3, 39417-9, 1987-10, #### [facility] ([id number]) [address] [place] [address] 61617 MCV (RBC) [Entitic vol] 72 fL Low 80-[address] [facility] Comment on above: Performed By: #### C HEATH, CMP, 0-3, , 1987-10, #### [facility] ([id number]) [address] [place] [address] 03570 Monocytes (Bld) [#/Vol] 0.4 10*3/uL Normal 0-0.9 [facility] Comment on above: Performed By: #### C BCA, CMP, 3040-3, 59349-1, 1987-10, #### [facility] ([id number]) [address] [place] [address] 32176 Monocytes/100 WBC (Bld) 5.8 % Normal [facility] Comment on above: Performed By: #### C BCA, CMP, 3040-3, , 1987-10, #### [facility] ([id number]) [address] [place] [address] 66459 Neutrophils/100 WBC (Bld) 65.0 % Normal [facility] Comment on above: Performed By: #### C BCA, CMP, 3040-3, 30864-1, 1987-10, #### [facility] ([id number]) [address] [place] [address] 22017 Platelet mean volume (Bld) [Entitic vol] 7.6 fL Normal 7-12 [facility] Comment on above: Performed By: #### Leila JOE, CMP, 3040-3, 21508-3, 1987-10, #### [facility] ([id number]) [address] [place] [address] 43896 Platelets (Bld) [#/Vol] 532 10*3/uL High 150-450 [facility] Comment on above: Performed By: #### Leila JOE, CMP, 3040-3, 88995-0, 1987-10, #### [facility] ([id number]) [address] [place] [address] 29405 RBC COUNT 4.80 X10E12/L Normal 3.80-5.20 [facility] Comment on above: Performed By: #### Leila JOE, CMP, 3040-3, , 1987-10, #### [facility] ([id number]) [address] [place] [address] 39622 WBC (Bld) [#/Vol] 7.0 10*3/uL Normal 4.0-11.0 [facility] Comment on above: Performed By: #### Leila JOE, CMP, 3040-3, 32063-8, 1987-10, #### [facility] ([id number]) [address] [place] [address] 57825 CHLAMYDIA/GC BY PCRon 2023 CHLAMYDIA/GC BY PCR [...] on adequate specimen collection. Normal [facility] Comment on above: Performed By: #### Leila JOE, CMP #### [facility] ([id number]) [address] [place] [address] 82510 COMPREHENSIVE METABOLIC PANE Van 01-27-2024 Albumin [Mass/Vol] 4.3 g/dL Normal 3.2-5.3 [facility] Comment on above: Performed By: #### C BCA, CMP, 3040-3, 19692-6, 1987-10, #### [facility] ([id number]) [address] [place] [address] 37116 ALP [Catalytic activity/Vol] 76 U/L Normal 39-130 [facility] Comment on above: Performed By: #### C BCA, CMP, 3040-3, 37099-5, 1987-10, #### [facility] ([id number]) [address] [place] [address] 97902 ALT [Catalytic activity/Vol] 28 U/L Normal 0-31 [facility] Comment on above: Performed By: #### C BCA, CMP, 3040-3, 33530-0, 1987-10, #### [facility] ([id number]) [address] [place] [address] 52590 Anion gap [Moles/Vol] 7 mmol/L Normal 5-15 [facility] Comment on above: Performed By: #### C BCA, CMP, 3040-3, 74805-3, 1987-10, #### [facility] ([id number]) [address] [place] [address] 11749 AST [Catalytic activity/Vol] 20 U/L Normal 0-41 [facility] Comment on above: Performed By: #### C BCA, CMP, 3040-3, 43011-9, 1987-10, #### [facility] ([id number]) [address] [place] [address] 10323 Bilirubin [Mass/Vol] 1.0 mg/dL Normal 0.3-1.2 [facility] Comment on above: Performed By: #### C BCA, CMP, 3040-3, 92914-6, 1987-10, #### [facility] ([id number]) [address] [place] [address] 11738 Calcium [Mass/Vol] 9.0 mg/dL Normal 8.5-10.5 [facility] Comment on above: Performed By: #### C BCA, CMP, 3040-3, , 1987-10, #### [facility] ([id number]) [address] [place] [address] 42895 Chloride [Moles/Vol] 102 mmol/L Normal 98-109 [facility] Comment on above: Performed By: #### C HEATH, CMP, 3039-3, , 1987-10, #### [facility] ([id number]) [address] [place] [address] 99555 CO2 [Moles/Vol] 22 mmol/L Normal 22-32 [facility] Comment on above: Performed By: #### C BCA, CMP, 3040-3, , 1987-10, #### [facility] ([id number]) [address] [place] [address] 47900 Creatinine [Mass/Vol] 0.76 mg/dL Normal 0.40-1.00 [facility] Comment on above: Result Comment: METH OD TRACEABLE TO IDMS STANDARD Performed By: #### C BCA, CMP, 3040-3, 04048-0, 1987-10, #### [facility] ([id number]) [address] [place] [address] 48141 eGFR (CKD-EPI) NON-RACE DEPENDENT >90 Normal >59 [facility] Comment on above: Result Comment: Reported eGFR is based on the CKD-EPI 2020 equation that does not use a race coefficient. Performed By: #### C BCA, CMP, 3040-3, 29807-7, 1987-10, #### [facility] ([id number]) [address] [place] [address] 32533 Glucose [Mass/Vol] 109 mg/dL High 65-99 [facility] Comment on above: Performed By: #### C BCA, CMP, 3040-3, 61381-8, 1987-10, #### [facility] ([id number]) [address] [place] [address] 05050 Potassium [Moles/Vol] 4.1 mmol/L Normal 3.5-5.0 [facility] Comment on above: Performed By: #### C BCA, CMP, 3040-3, 00033-2, 1987-10, #### [facility] ([id number]) [address] [place] [address] 35648 Protein [Mass/Vol] 8.2 g/dL High 6.0-8.0 [facility] Comment on above: Performed By: #### C BCA, CMP, 3040-3, 91975-3, 1987-10, #### [facility] ([id number]) [address] [place] [address] 02637 Sodium [Moles/Vol] 131 mmol/L Low 134-146 [facility] Comment on above: Performed By: #### C BCA, CMP, 3040-3, 56605-9, 1987-10, #### [facility] ([id number]) [address] [place] [address] 71801 Urea nitrogen [Mass/Vol] 6 mg/dL Normal 5-23 [facility] Comment on above: Performed By: #### C BCA, CMP, 3040-3, 68225-1, 1987-10, #### [facility] ([id number]) [address] [place] [address] 38332 HCG ( test) Ql (U)o n 01-27-2024 Beta HCG ( test) Ql (U) Negative Normal NEG [facility] Comment on above: Performed By: #### 2 106-3 #### [facility] ([id number]) [address] [place] [address] 52233 LIPASEon 01-27-2024 Lipase [Catalytic activity/Vol] 33 U/L Normal 17-40 [facility] Comment on above: Performed By: #### C BCA, CMP #### [facility] ([id number]) [address] [place] [address] 46098 Lactate (P arely) [Moles/Vol]o n 01-27-2024 LACTATE W/REFLEX 1.5 mmol/L Normal 0.4-2.0 [facility] Comment on above: Result Comment: Result did not trigger repeat Lactate, re-order if needed. Performed By: #### C BCA, CMP #### [facility] ([id number]) [address] [place] [address] 70065 MAGNESIUMon 01-27-2024 Magnesium [Mass/Vol] 2.0 mg/dL Normal 1.8-2.6 [facility] Comment on above: Performed By: #### C BCA, CMP #### [facility] ([id number]) [address] [place] [address] 75773 URINE CULTUREon 01-27-2024 Bacteria identified Cx Nom (U) CULTURE RESULTS <10,000 ORGANISMS/ML NORMAL URO GENITAL RASHID Normal [facility] Comment on above: Performed By: #### C BCA, CMP #### [facility] ([id number]) [address] [place] [address] 79201 URN MACROSCOPIC NURon 2023 BILIRUBIN AUDREY Negative Normal NEG [facility] Comment on above: Performed By: #### N UM #### [facility] ([id number]) [address] [place] [address], [place] [address] BLOOD/HGB AUDREY Negative Normal NEG [facility] Comment on above: Performed By: #### N UM #### [facility] ([id number]) [address] [place] [address], [place] [address] GLUCOSE AUDREY Negative Normal NEG [facility] Comment on above: Performed By: #### N UM #### [facility] ([id number]) [address] [place] [address], [place] [address] KETONES AUDREY Negative Normal NEG [facility] Comment on above: Performed By: #### N UM #### [facility] ([id number]) [address] [place] [address] [place] [address] LEUKOCYTE ESTERASE AUDREY Negative Normal NEG Pr [facility] Comment on above: Performed By: #### N UM #### [facility] ([id number]) [address] [place] [address], [place] [address] NITRITE AUDREY Negative Normal NEG [facility] Comment on above: Performed By: #### N UM #### [facility] ([id number]) [address] [place] [address], [place] [address] PH AUDREY 8.5 Normal 5.0-8.5 [facility] Comment on above: Performed By: #### N UM #### [facility] ([id number]) [address] [place] [address], [place] [address] PROTEIN AUDREY Negative Normal NEG [facility] Comment on above: Performed By: #### N UM #### [facility] ([id number]) [address] [place] [address], [place] [address] SPECIFIC GRAVITY AUDREY 1.015 Normal 1.003-1.035 [facility] Comment on above: Performed By: #### N UM #### [facility] ([id number]) [address] [place] [address] [place] [address] UROBILINOGEN AUDREY 0.2 eu/dL Normal <1.1 [facility] Comment on above: Performed By: #### N UM #### [facility] ([id number]) [address] [facility] [place], [place] [address] US PELVIC WITH TRANSVAGINAL AND DUPLEXon 01-27-2024 [...] on 01/27/2024 2:39 PM Normal [facility] VAGINITIS PANEL PCRon 2023 VAGINITIS PANEL [...] to determine patient diagnosis. Normal [facility] Comment on above: Performed By: #### C BCA, [facility] #### [facility] ([id number]) [address] [place] [address] CT sinus wo conon 11-25-2023 CT sinus wo con [facility] [place] [address] CT Scan Report Signed Patient: Antonia Noyola MR#: [id number] : 1985 Acct:[id number] Age/Sex: 38 / F ADM Date: 11/25/23 Loc: CT Room: Type: [facility] Attending Dr: Jennifer Duran DO Copies [...] Davi Figueroa M.D.11/25/2023 4:01 PM Dictation Location: [place] [address] Transcribed By: [facility] 11/25/23 1601 Dictated By: Davi Figueroa DO 11/25/23 1559 Signed By: 11/25/23 1601 Normal [facility] CBC AND AUTO DIFFon 10-25-19 ABSOLUTE BASOPHIL 0.1 X10E9/L Normal 0.0-0.2 [facility] Comment on above: Performed By: #### C HEATH, CMP #### [facility] ([id number]) [address] [place] [address] 48027 ABSOLUTE NEUTROPHIL 4.1 X10E9/L Normal 1.5-6.6 [facility] Comment on above: Performed By: #### C HEATH, CMP #### [facility] ([id number]) [address] [place] [address] 06718 Basophils/100 WBC (Bld) 0.9 % Normal [facility] Comment on above: Performed By: #### C HEATH, CMP #### [facility] ([id number]) [address] [place] [address] 08792 Eosinophils (Bld) [#/Vol] 0.0 10*3/uL Normal 0.0-0.4 [facility] Comment on above: Performed By: #### C HEATH, CMP #### [facility] ([id number]) [address] [place] [address] 54487 Eosinophils/100 WBC (Bld) 0.1 % Normal [facility] Comment on above: Performed By: #### C BCA, CMP #### [facility] ([id number]) [address] [place] [address] 57436 Erythrocyte distribution width (RBC) [Ratio] 17.9 % High 11.5-15.0 [facility] Comment on above: Performed By: #### C BCA, CMP #### [facility] ([id number]) [address] [place] [address] 89889 Hematocrit (Bld) [Volume fraction] 34.6 % Low 35-47 [facility] Comment on above: Performed By: #### C BCA, CMP #### [facility] ([id number]) [address] [place] [address] 00289 Hemoglobin (Bld) [Mass/Vol] 11.1 g/dL Low 11.7-15.5 [facility] Comment on above: Performed By: #### C BCA, CMP #### [facility] ([id number]) [address] [place] [address] 82204 Lymphocytes (Bld) [#/Vol] 1.5 10*3/uL Normal 1.0-3.5 [facility] Comment on above: Performed By: #### C BCA, CMP #### [facility] ([id number]) [address] [place] [address] 76735 Lymphocytes/100 WBC (Bld) 25.6 % Normal [facility] Comment on above: Performed By: #### C BCA, CMP #### [facility] ([id number]) [address] [place] [address] 25791 MCH (RBC) [Entitic mass] 23.1 pg Low 27-34 [facility] Comment on above: Performed By: #### C BCA, CMP #### [facility] ([id number]) [address] [place] [address] 54033 MCHC (RBC) [Mass/Vol] 32.1 g/dL Normal 32-36 [facility] Comment on above: Performed By: #### C BCA, CMP #### [facility] ([id number]) [address] [place] [address], [place] [address] MCV (RBC) [Entitic vol] 72 fL Low 80-[address] [facility] Comment on above: Performed By: #### C BCA, CMP #### [facility] ([id number]) [address] [place] [address] 39486 Monocytes (Bld) [#/Vol] 0.3 10*3/uL Normal 0-0.9 [facility] Comment on above: Performed By: #### C HEATH, CMP #### [facility] ([id number]) [address] [place] [address] 60060 Monocytes/100 WBC (Bld) 5.3 % Normal [facility] Comment on above: Performed By: #### C HEATH, CMP #### [facility] ([id number]) [address] [place] [address] 16785 Neutrophils/100 WBC (Bld) 68.1 % Normal [facility] Comment on above: Performed By: #### C HEATH, CMP #### [facility] ([id number]) [address] [place] [address] 72019 Platelet mean volume (Bld) [Entitic vol] 7.7 fL Normal 7-12 [facility] Comment on above: Performed By: #### C HEATH, CMP #### [facility] ([id number]) [address] [place] [address] 29637 Platelets (Bld) [#/Vol] 532 10*3/uL High 150-450 [facility] Comment on above: Performed By: #### C HEATH, CMP #### [facility] ([id number]) [address] [place] [address] 49151 RBC COUNT 4.82 X10E12/L Normal 3.80-5.20 [facility] Comment on above: Performed By: #### C BCA, CMP #### [facility] ([id number]) [address] [place] [address] 48961 WBC (Bld) [#/Vol] 6.0 10*3/uL Normal 4.0-11.0 [facility] Comment on above: Performed By: #### C BCA, CMP #### [facility] ([id number]) [address] [place] [address] 57121 COMPREHENSIVE METABOLIC PANE Van 10-25-2023 Albumin [Mass/Vol] 4.7 g/dL Normal 3.2-5.3 [facility] Comment on above: Performed By: #### C BCA, CMP #### [facility] ([id number]) [address] [place] [address] 98437 ALP [Catalytic activity/Vol] 67 U/L Normal 39-130 [facility] Comment on above: Performed By: #### C BCA, CMP #### [facility] ([id number]) [address] [place] [address] 95334 ALT [Catalytic activity/Vol] 23 U/L Normal 0-31 [facility] Comment on above: Performed By: #### C BCA, CMP #### [facility] ([id number]) [address] [place] [address] 62836 Anion gap [Moles/Vol] 11 mmol/L Normal 5-15 [facility] Comment on above: Performed By: #### C BCA, CMP #### [facility] ([id number]) [address] [place] [address] 25068 AST [Catalytic activity/Vol] 20 U/L Normal 0-41 [facility] Comment on above: Performed By: #### C BCA, CMP #### [facility] ([id number]) [address] [place] [address] 98004 Bilirubin [Mass/Vol] 1.0 mg/dL Normal 0.3-1.2 [facility] Comment on above: Performed By: #### C BCA, CMP #### [facility] ([id number]) [address] [place] [address] 74714 Calcium [Mass/Vol] 9.6 mg/dL Normal 8.5-10.5 [facility] Comment on above: Performed By: #### C BCA, CMP #### [facility] ([id number]) [address] [place] [address] 71936 Chloride [Moles/Vol] 106 mmol/L Normal 98-109 [facility] Comment on above: Performed By: #### C BCA, CMP #### [facility] ([id number]) [address] [place] [address] 77309 CO2 [Moles/Vol] 20 mmol/L Low 22-32 [facility] Comment on above: Performed By: #### C BCA, CMP #### [facility] ([id number]) [address] [place] [address] 17746 Creatinine [Mass/Vol] 0.59 mg/dL Normal 0.40-1.00 [facility] Comment on above: Result Comment: METH OD TRACEABLE TO IDMS STANDARD Performed By: #### C BCA, CMP #### [facility] ([id number]) [address] [place] [address] 18716 eGFR (CKD-EPI) NON-RACE DEPENDENT >90 Normal >59 [facility] Comment on above: Result Comment: Reported eGFR is based on the CKD-EPI 2021 equation that does not use a race coefficient. Performed By: #### C BCA, CMP #### [facility] ([id number]) [address] [place] [address] 73662 Glucose [Mass/Vol] 124 mg/dL High 65-99 [facility] Comment on above: Performed By: #### C BCA, CMP #### [facility] ([id number]) [address] [place] [address] 16177 Potassium [Moles/Vol] 3.5 mmol/L Normal 3.5-5.0 [facility] Comment on above: Performed By: #### C BCA, CMP #### [facility] ([id number]) [address] [place] [address] Protein [Mass/Vol] 8.7 g/dL High 6.0-8.0 [facility] Comment on above: Performed By: #### C BCA, CMP #### [facility] ([id number]) [address] [place] [address] 53605 Sodium [Moles/Vol] 137 mmol/L Normal 134-146 [facility] Comment on above: Performed By: #### C BCA, CMP #### [facility] ([id number]) [address] [place] [address] 99610 Urea nitrogen [Mass/Vol] 6 mg/dL Normal 5-23 [facility] Comment on above: Performed By: #### C BCA, CMP #### [facility] ([id number]) [address] [place] [address] ABDOMEN AND PELVIS W CONT on [...] on 10/25/2023 7:39 PM Normal [facility] HCG ( test) Ql (U)o n 10-25-2023 Beta HCG ( test) Ql (U) Negative Normal NEG [facility] Comment on above: Performed By: #### 2 106-3 #### [facility] ([id number]) [address] [place] [address] 82938 URN MACROSCOPIC NURon 2023 BILIRUBIN AUDREY Negative Normal NEG [facility] Comment on above: Performed By: #### N UM #### [facility] ([id number]) [address] [place] [address] 89672 BLOOD/HGB AUDREY Negative Normal NEG [facility] Comment on above: Performed By: #### N UM #### [facility] ([id number]) [address] [place] [address] 59864 GLUCOSE AUDREY Negative Normal NEG [facility] Comment on above: Performed By: #### N UM #### [facility] ([id number]) [address] [place] [address] 34157 KETONES AUDREY 15 mg/dL Abnormal NEG [facility] Comment on above: Performed By: #### N UM #### [facility] ([id number]) [address] [place] [address] 72022 LEUKOCYTE ESTERASE AUDREY Trace Abnormal NEG [facility] Comment on above: Performed By: #### N UM #### [facility] ([id number]) [address] [place] [address] 91368 NITRITE AUDREY Negative Normal NEG [facility] Comment on above: Performed By: #### N UM #### [facility] ([id number]) [address] [place] [address] 74354 PH AUDREY 7.0 Normal 5.0-8.5 [facility] Comment on above: Performed By: #### N UM #### [facility] ([id number]) [address] [place] [address] 92122 PROTEIN AUDREY Negative Normal NEG [facility] Comment on above: Performed By: #### N UM #### [facility] ([id number]) [address] [place] [address] 24369 SPECIFIC GRAVITY AUDREY 1.020 Normal 1.003-1.035 [facility] Comment on above: Performed By: #### N UM #### [facility] ([id number]) [address] [place] [address] [id number] UROBILINOGEN AUDREY 1.0 eu/dL Normal <1.1 [facility] Comment on above: Performed By: #### N UM #### [facility] ([id number]) [address] [place] [address]33 US PELVIC WITH TRANSVAGINAL AND DUPLEXon 10-25-2023 [...] on 10/25/2023 6:17 PM Normal [facility] C Urineon 10-02-2023 Bacteria identified Cx [...] Locations R1: This test was performed at: [facility], [address] [place] [address], [address]- , , Normal [facility] Comment on above: Performed By: #### 2 [id number], [id number], [id number], [id number], [id number] #### [facility] [address] [place] [address] BMPon 09-30-2023 Anion gap [Moles/Vol] 13 mmol/L Normal 6-16 [facility] Comment on above: Performed By: #### 2 [id number], [id number], [id number], [id number], [id number] ####[facility] [id number] [place] [address] Calcium [Mass/Vol] 9.1 mg/dL Normal 8.9-11.1 [facility] Comment on above: Performed By: #### 2 [id number], [id number], [id number], [id number], [id number] ####[facility] [address] [place] [place] [address] Chloride [Moles/Vol] 105 mmol/L Normal 101-111 [facility] Comment on above: Performed By: #### 2 [id number], [id number], [id number], [id number], [id number] ####[facility] [address] [place] [address] CO2 [Moles/Vol] 23 mmol/L Normal 21-31 [facility] Comment on above: Performed By: #### 2 [id number], [id number], [id number], [id number], [id number] ####[facility] [id number] [place] [address] Creatinine [Mass/Vol] 0.8 mg/dL Normal 0.5-1.3 [facility] Comment on above: Performed By: #### 2 755157, [id number], [id number], [id number], [id number] ####[facility] [id number] [facility] [place] [address] Glucose [Mass/Vol] 95 mg/dL Normal 55-199 [facility] Comment on above: Performed By: #### 2 486838, 8676507, 3406203, 97455039, 3306842 ####[facility] [id number] [place] [address] Potassium [Moles/Vol] 3.1 mmol/L Low 3.5-5.3 [facility] Comment on above: Performed By: #### 2 526342, 1742960, 5677773, 44200093, 6459052 ####[facility] [address] [place] [address] Sodium [Moles/Vol] 138 mmol/L Normal 135-145 [facility] Comment on above: Performed By: #### 2 606395, 0351097, 9113408, 03050308, 8123042 ####[facility] [address] [place] [address] Urea nitrogen [Mass/Vol] 7 mg/dL Normal 5-21 [facility] Comment on above: Performed By: #### 2 559872, 4903013, 7736394, 13169114, 0386688 ####[facility] [address] [place] [address] Urea nitrogen/Creatinine [Mass ratio] 9 No Units Low 10-20 [facility] Comment on above: Performed By: #### 2 760892, 3320050, 2252559, 67121896, 0075225 ####[address] [address] CBC w/ Auto Diffon 4 Basophils/100 WBC (Bld) 0.3 % Normal 0.0-2.0 F [facility] Comment on above: Performed By: #### 2 611886, 6239810, 9915590, 07194546, 8485717 ####[address] [address] Basophils/Leukocytes Auto (Bld) [Pure # fraction] 0.0 E9/L Normal 0.0-0.2 [facility] Comment on above: Performed By: #### 2 943708, 4786921, 9368093, 31187521, 9972984 ####[address] [address] Eosinophils (Bld) [#/Vol] 0.0 E9/L Normal 0.0-0.5 [facility] Comment on above: Performed By: #### 2 284952, 0655754, 9725714, 32230946, 9852883 ####[address] [address] Eosinophils/100 WBC (Bld) 0.4 % Normal 0.0-8.0 [facility] Comment on above: Performed By: #### 2 521775, 2513571, 9438665, 73104091, 0184706 ####[address] [address] Erythrocyte distribution width (RBC) [Ratio] 18.3 % High 10.9-14.2 [facility] Comment on above: Performed By: #### 2 840686, 9796164, 8907264, 93847851, 1192396 ####[address] [address] Hematocrit (Bld) [Volume fraction] 32.6 % Low 34.0-46.0 [facility] Comment on above: Performed By: #### 2 144432, 7290816, 2865282, 72309756, 8463616 ####[address] [address] Hemoglobin (Bld) [Mass/Vol] 10.3 g/dL Low 12.0-16.0 [facility] Comment on above: Performed By: #### 2 952657, 8139190, 1554674, 48603601, 7355403 ####[address] [address] Lymphocytes (Bld) [#/Vol] 4.1 E9/L High 1.0-4.0 [facility] Comment on above: Performed By: #### 2 777118, 6435154, 5736054, 16996078, 5760388 ####[address] [address] Lymphocytes/100 WBC (Bld) 39.5 % Normal 14.0-50.0 [facility] Comment on above: Performed By: #### 2 842511, 1878193, 8830457, 86061319, 2689746 ####[address] [address] MCH (RBC) [Entitic mass] 23.7 pg Low 27.0-34.0 [facility] Comment on above: Performed By: #### 2 772606, 4870434, 3186267, 70157981, 1137636 ####[facility] [address] [place] [address] MCHC (RBC) [Mass/Vol] 31.7 g/dL Normal 31.4-36.0 [facility] Comment on above: Performed By: #### 2 647328, 2250192, 3120533, 27982367, 7872770 ####[address] [address] MCV (RBC) [Entitic vol] 74.9 fL Low 80.0-100.0 F [facility] Comment on above: Performed By: #### 2 655703, 5018219, 4493677, 51348340, 0793690 ####[address] [address] Monocytes (Bld) [#/Vol] 0.7 E9/L Normal 0.2-1.0 F [facility] Comment on above: Performed By: #### 2 221901, 8385268, 1100043, 42444920, 0595496 ####[address] [address] Neutrophils (Bld) [#/Vol] 5.4 E9/L Normal 2.0-7.5 [facility] Comment on above: Performed By: #### 2 794686, 4818881, 9594141, 63155791, 7444335 ####[address] [address] Neutrophils/100 WBC (Bld) 53.1 % Normal 36.0-75.0 [facility] Comment on above: Performed By: #### 2 250285, 5819674, 2730946, 17432847, 3146193 ####[address] [place] [address] Platelet 476.0 E9/L Normal 150.0-500.0 [facility] Comment on above: Performed By: #### 2 467391, 7143318, 5912083, 92946607, 1176610 ####[facility] [address] [place] [address] Platelet mean volume (Bld) [Entitic vol] 7.7 fL Normal 6.4-10.8 [facility] Comment on above: Performed By: #### 2 359192, 4031330, 7670922, 36059562, 6393162 ####[facility] [address] [place] [address] RBC (Bld) [#/Vol] 4.3 E12/L Normal 4.3-5.9 [facility] Comment on above: Performed By: #### 2 602260, 1901784, 2609300, 94464860, 9591496 ####[address] [address] WBC corrected for nucl RBC Auto (Bld) [#/Vol] 10.3 E9/L Normal 4.0-11.0 [facility] Comment on above: Performed By: #### 2 322651, 8440487, 5034933, 67433240, 8052217 ####[address] [address] CHEMISTRYOrdered By: SYSTEM SYSTEM on 09-30-2023 Albumin [...] 13 mmol/L Normal 6 - 16 mEq/L Remisol Chem AST [Catalytic activity/Vol] 12 [iU]/d Normal [...] Chem eGFR 97 mL/min/1.73 m2 Normal >=59mL/min / 1.73 m2 Remisol Chem Globulin (S) [Mass/Vol] 3.0 [...] Remisol Chem Discharge Instructionson Discharge Instructions [id number]. [id number] Normal [facility] ED Clinical Summaryon 2023 ED Clinical Summary [address] [address] ED Clinical Summary Person Information Name: ANTONIA NOYOLA Andrea/[facility] Age: 38 Years : 1985 Sex: Female Language: Citizen [place] PCP: NONE, XXXX Marital Status: Visit Id: [...] 09/30/2023 02:15:05 ADDRESS: [address] [place] [id number] PHYS DOC NOTES: MEDICAL INFORMATION: Prescriptions Given: Medications to Continue with No Changes Other Medications alprazolam (alprazolam 0.25 mg Tab) budesonide-formoterol (Symbicort 80/4.5 inhalation aerosol with adapter) citalopram [...] Ovarian Cyst Follow up: With: Address: When: Rose Royal [address] [place] [address], [facility] [address], [place] [address] Business (1) In 3 days 10/03/2023 DIAGNOSIS: AP (abdominal pain); Ovarian cyst Normal [facility] ED Note-Physicianon 09-30-19 ED Note-Physician Basic Information Time Seen: Ivana Ritesh 09/29/2023 23:42 Chief Complaint pt states abdominal [...] taking oral tramadol, Toradol, Bentyl, and a [place] at home and has had no significant relief. She does have some nausea but no vomiting. No change in bowel movements. No urinary symptoms. 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 Royal and another ASSISTANT BOILER OPERATOR in the area to see if he [...] mL (more content not included)... Normal [facility] Comment on above: Result Comment: Elec [...] Follow these instructions at home: ? Take txcr-pvu-ufwkdko and prescription medicines only as told by [...] Reviewed: 11/06/2020 Elsevier Patient Education ? 2022 [employer] Normal [facility] ED Patient Summaryon 024 ED Patient Summary [address] [address] Patient Discharge Instructions Person Information Name: ANTONIA NOYOLA Age: 38 Years Arrival Date: 09/29/2023 23:38:37 Discharge Diagnosis: AP (abdominal pain); Ovarian cyst Primary Care Physician: NONE, XXXX Provider Information Primary Provider: Ritesh Heath DO Advanced Fire Protection Specialist:Shazia The exam and treatment you received in the Emergency Department were for an urgent problem and are not intended as complete care. It is important that you follow up with a doctor, nurse practitioner, or physician?s personal injury legal assistant for ongoing care. If your symptoms become worse or you do not improve as expected and you are unable to reach your usual health care provider, you should return to the Emergency Department. We are available 24 hours a day. ANTONIA NOYOLA has been given the following list of patient education materials, prescriptions and follow-up instructions: Follow-up Instructions: With: Address: When: Rose ENCISO, [facility] [address], [place] [address] Business (1) In 3 days 10/03/2023 In the event that this physician does not participate in your insurance network, please consult with your insurance company to find a nearby participating provider. Patient Education Materials: Ovarian Cyst A MESSAGE TO ALL PATIENTS REGARDING OPIOIDS PRESCRIPTION OPIOIDS: WHAT YOU NEED TO KNOW Prescription opioids can be used to help relieve wewlckgj-td-deqgby pain and are often prescribed following a [...] guidance from the Food and Drug Administration (www.fda.gov/Drugs/Res ourcesForYou). ? Visit www.cdc.gov/drugoverdo se to learn about the risks of opioids abuse and overdose. ? If you believe you may be struggling with addiction, tell your health career education teacher and ask for guidance or call [facility]S National Helpline at 3-673-566-HELP. v Source: [place] Department o (more content not included)... Normal [facility] HEMATOLOGYOrdered By: SYSTEM SYSTEM on 09-30-2023 Basophils/100 [...] 09-30-2023 Albumin [Mass/Vol] 4.4 g/dL Normal 3.3-5.0 [facility] Comment on above: Performed By: #### 2 272897, 3072186, 9556792, 69973381, 5177333 ####[facility] [address] [place] [address] Albumin/Globulin (S) [Mass conc ratio] 1.5 Normal 1.1-2.2 [facility] Comment on above: Performed By: #### 2 797498, 4839752, 0725362, 90517354, 3097253 ####[facility] [address] [place] [address] ALP [Catalytic activity/Vol] 64 Int._Unit/L Normal 21-98 [facility] Comment on above: Performed By: #### 2 624531, 7618893, 5275874, 54070325, 6886778 ####[facility] [address] [place] [address] ALT No additional P-5'-P [Catalytic activity/Vol] 9 Int._Unit/L Normal 6-46 [facility] Comment on above: Performed By: #### 2 089242, 0127493, 1745703, 32624667, 6986890 ####[facility] [id number] [place] [address] AST [Catalytic activity/Vol] 12 Int._Unit/L Normal 5-43 [facility] Comment on above: Performed By: #### 2 293952, 1170289, 7086417, 64649940, 9770050 ####[facility] [address] [place] [address] Bilirubin [Mass/Vol] 0.2 mg/dL Normal 0.0-1.1 [facility] Comment on above: Performed By: #### 2 501927, 5455896, 6843103, 72345537, 1974352 ####[facility] [address] [place] [address] Bilirubin.direct [Mass/Vol] 0.0 mg/dL Normal 0.0-0.4 [facility] Comment on above: Performed By: #### 2 797452, 0218901, 6733891, 26233391, 2552885 ####[facility] [address] [place] [address] Bilirubin.indirect [Mass or moles/Vol] 0.2 mg/dL Normal 0.1-0.9 [facility] Comment on above: Performed By: #### 2 156195, 5510197, 6004773, 94520701, 4122386 ####[facility] [address] [place] [address] Globulin (S) [Mass/Vol] 3.0 g/dL Normal 1.4-4.0 [facility] Comment on above: Performed By: #### 2 889463, 6051721, 8986372, 52452203, 3155866 ####[facility] [address] [place] [address] Protein [Mass/Vol] 7.4 g/dL Normal 6.0-7.8 [facility] Comment on above: Performed By: #### 2 208678, 5105562, 6795354, 29749969, 4330557 ####[address] [place] [address] Lipase Levelon 09-30-2023 Lipase [Catalytic activity/Vol] 61 U/L High 13-58 [facility] Comment on above: Performed By: #### 2 749402, 3643610, 5245153, 97637396, 08427300 #### [facility] [address] [place] [address] SEROLOGYOrdered By: Ariadne Sheehan on 09-30-2023 HCG.beta subunit (U) [Moles/Vol] Negative Normal [facility] Man Sero U BetaHcg Qualon 09-30-2023 HCG.beta subunit (U) [Moles/Vol] Negative Normal [facility] Comment on above: Performed By: #### 2 571776, 8405004, 6393418, 29483916, 75683408 #### [facility] [address] [place] [address] UA with Cult Rflxon 09-30-19 24 Bacteria Auto Ql (U) Trace Normal Trace Fish [facility] Comment on above: Performed By: #### 2 412436, 4921818, 1764474, 27014402, 38168899 #### [facility] [address] [place] [address] Bilirubin Ql (U) Negative Normal Negative [facility] Comment on above: Performed By: #### 2 253759, 5716991, 1882828, 19937352, 88403630 #### [facility] [address] [place] [address] Clarity (U) Clear Normal Clear [facility] Comment on above: Performed By: #### 2 977560, 0168834, 2648127, 49921986, 04010986 #### [facility] [address] [place] [address] Color (U) Light-Yellow Normal Yellow [facility] Comment on above: Result Comment: Micr oscopic readings are only performed on those samples that meet specific criteria set forth by [facility] Laboratory. Performed By: #### 2 283425, 2433292, 3249942, 75083454, 25158916 #### [facility] [address] [place] [address] Epithelial cells.squamous Auto (Urine sed) [#/Area] 3-4 Abnormal 0-2 [facility] Comment on above: Performed By: #### 2 319017, 2932334, 9450128, 65990734, 46888083 #### [facility] [address] [place] [address] Glucose Ql (U) Negative Normal Negative [facility] Comment on above: Performed By: #### 2 255584, 6546770, 3696860, 06712384, 97826438 #### [facility] [address] [place] [address] Hemoglobin Auto test strip (U) [Mass/Vol] Trace Abnormal Negative [facility] Comment on above: Performed By: #### 2 297415, 6521024, 3368356, 21340856, 15918580 #### [facility] [address] [place] [address] Ketones Auto test strip Ql (U) Negative Normal Negative [facility] Comment on above: Performed By: #### 2 011236, 4292209, 4809627, 12511006, 80028321 #### [facility] Laboratory [address] [place] [address] Leukocyte esterase Auto test strip Ql (U) 75 Bertrand/uL Abnormal Negative [facility] Comment on above: Performed By: #### 2 055015, 7077726, 9910058, 28832697, 27868317 #### [facility] Laboratory [address] [place] [address] Mucus Auto Ql (U) Negative Normal Negative [facility] Comment on above: Performed By: #### 2 578610, 3688637, 3389535, 52523602, 95659990 #### [facility] Laboratory [address] [place] [address] Nitrite Auto test strip Ql (U) Negative Normal Negative [facility] Comment on above: Performed By: #### 2 764984, 1760333, 7530741, 14587114, 64264220 #### [facility] [address] [place] [address] pH (U) 5.5 [pH] Invalid Interpretation Code 5.0-9.0 [facility] Comment on above: Performed By: #### 2 035736, 4976421, 9421825, 31381687, 37167618 #### [facility] Laboratory [address] [place] [address] Protein Ql (U) Negative Normal Negative [facility] Comment on above: Performed By: #### 2 915469, 8543605, 1494605, 45559950, 33830939 #### [facility] Laboratory [address] [place] [address] RBC Ql (U) 4-20 Abnormal 0-3 [facility] Comment on above: Performed By: #### 2 674659, 7704589, 7149381, 76730464, 99465419 #### [facility] Laboratory [address] [place] [address] Specific gravity (U) [Rel density] 1.017 Invalid Interpretation Code 1.005-1.030 [facility] Comment on above: Performed By: #### 2 258214, 4629651, 9953732, 43995436, 09930427 #### [facility] Laboratory [address] [place] [address] Urobilinogen (U) [Mass/Vol] Negative Normal Negative [facility] Comment on above: Performed By: #### 2 876809, 3484071, 8273624, 08925131, 57760536 #### [facility] Laboratory [address] [place] [address] WBC Auto (Urine sed) [#/Area] 0-5 Normal 0-5 [facility] Comment on above: Performed By: #### 2 993613, 3237682, 6375235, 13300544, 11742995 #### [facility] Laboratory [address] [place] [address] URINALYSISOrdered By: SYSTEM SYSTEM on 09-30-2023 Bacteria Auto Ql (U) Trace graded/HPF Normal Tra cegraded /HPF [facility] UA Auto SS Bilirubin Ql (U) Negative Normal Negativemg/ dL [facility] UA Auto SS Clarity (U) Clear (09/30/23 12:08 AM) Normal Clear [facility] UA Auto SS Color (U) Light-Yellow 1 (09/30/23 12:08 AM) Normal Yellow [facility] UA Auto SS Comment on above: Interpretive Data: M icroscopic readings are only performed on those samples that meet specific criteria set forth by [facility] Laboratory. Epithelial cells.squamous Auto (Urine sed) [#/Area] 3-4 graded/HPF Invalid Interpretation Code 0-2graded/H PF [facility] UA Auto SS Glucose Ql (U) Negative Normal Negativemg/ dL [facility] UA Auto SS Hemoglobin Auto test strip (U) [Mass/Vol] Trace mg/dL Invalid Interpretation Code Negativemg/ dL [facility] UA Auto SS Ketones Auto test strip Ql (U) Negative Normal Negativemg/ dL [facility] UA Auto SS Leukocyte esterase Auto test strip Ql (U) 75 Bertrand/uL Bertrand/uL Invalid Interpretation Code NegativeLeu /uL [facility] UA Auto SS Mucus Auto Ql (U) Negative Normal Negativegr a ded/LPF [facility] UA Auto SS Nitrite Auto test strip Ql (U) Negative Normal Negativemg/ dL [facility] UA Auto SS pH (U) 5.5 *NA* (09/30/23 12:08 AM) Invalid Interpretation Code 5.0 - 9.0 [facility] UA Auto SS Protein Ql (U) Negative Normal Negativemg/ dL [facility] UA Auto SS RBC Ql (U) 4-20 graded/HPF Invalid Interpretation Code 0-3graded/H PF [facility] UA Auto SS Specific gravity (U) [Rel density] 1.017 *NA* (09/30/23 12:08 AM) Invalid Interpretation Code 1.005 - 1.030 [facility] UA Auto SS Urobilinogen (U) [Mass/Vol] Negative Normal Negativemg/ dL [facility] UA Auto SS WBC Auto (Urine sed) [#/Area] 0-5 graded/HPF Normal 0-5graded/H PF [facility] UA Auto SS URINALYSISOrdered By: Ritesh bishop on 09-30-2023 UA Spec Desc Clean Catch (09/30/23 12:08 AM) Normal [facility] UA Auto SS Work Phone: US Doppler Abd/Pelvis Comple kelby 09-30-2023 US Doppler Abd/Pelvis Complete Exam Date/Time: 09/30/2023 02:04 EDT Reason for Exam: Torsion Report PLEASE SEE US Pelvis Non-OB Complete REPORT DATED: 09/30/2023. Ordering Provider: Ritesh Heath FINAL REPORT Dictated: 09/30/2023 4:11 am Harvey Leslie MD Signed (Electronic Signature): 09/30/2023 4:11 am Signed by: Harvey Leslie MD Transcribed by: MILLIE Technologist: GERDA [facility] US Pelvis Non-OB Completeon 09-30-2023 US [...] Transvaginal Ultrasound Performed Uterus Position Anteverted Normal [facility] US Transvaginal Non-OBon US Transvaginal Non-OB Exam Date/Time: 09/30/2023 02:03 EDT Reason for Exam: pssible torsion, known large cyst;Other (please specify) Report PLEASE SEE US Pelvis Non-OB Complete REPORT DATED: 09/30/2023. Ordering Provider: Ritesh Heath FINAL REPORT Dictated: 09/30/2023 4:11 am Harvey Leslie MD Signed (Electronic Signature): 09/30/2023 4:11 am Signed by: Harvey Leslie MD Transcribed by: MILLIE Technologist: GERDA Normal [facility] eGFRon 09-30-2023 eGFR 97 mL/min/1.73 m2 Normal >=59 [facility] Comment on above: Order Comment: Order added by Discern Expert. Performed By: #### 2 201668, 8038982, 9292874, 30506087, 48197881 #### [facility] Laboratory [address] [place] [address] Consent for Treatmenton 09-11 Consent for Treatment [id number] 0TIFF Normal [facility] UA with Cult Rflxon 09-29-19 Type of Urine collection method Clean Catch [facility] Comment on above: Performed By: #### 2 273423, 8077976, 2989534, 86007336, 90282851 #### [facility] Laboratory [address] [place] [address] ED Clinical Summaryon 2023 ED Clinical Summary [address] [address] ED Clinical Summary Person Information Name: [facility] Age: 38 Years : 1985 Sex: Female Language: Citizen Of [place] PCP: NONE, XXXX Marital Status: Visit Id: [...] 09/26/2023 18:13:56 ADDRESS: [address] [place] [id number] PHYS DOC NOTES: MEDICAL INFORMATION: Prescriptions Given: New Medications [id number], [address] [place], [place] [id number], [phone] diflunisal (diflunisal 500 mg Tab) 1 Tablets [...] Other Medications alprazolam (alprazolam 0.25 mg Tab) budesonide-formoterol (Symbicort 80/4.5 inhalation aerosol with adapter) citalopram (citalopram 20 mg Tab) By Mouth every day. PATIENT EDUCATION INFORMATION: Instructions: Follow up: With: Address: When: scenios [facility] [email or web address] [address] [address] Business (1) In 3 days 09/29/2023 With: Address: When: Tarun [address] , [place] [address] Timescape (1) In 3 days 09/29/2023 With: Address: When: XXXX NONE , [place] In 3 days DIAGNOSIS: Abdominal pain; Constipation; Ovarian cyst Normal [facility] ED Patient Education Noteon 09-27-2023 ED Patient Education Note Normal [facility] ED Patient Summaryon 024 ED Patient Summary [address] [address] Patient Discharge Instructions Person Information Name: ANTONIA NOYOLA Age: 38 Years Arrival Date: 09/26/2023 13:54:18 Discharge Diagnosis: Abdominal pain; Constipation; Ovarian cyst Primary Care Physician: NONE, XXXX Provider Information Primary Provider: Konstantin Penny DO Advanced Fire Protection Specialist:None The exam and treatment you received in the Emergency Department were for an urgent problem and are not intended as complete care. It is important that you follow up with a doctor, nurse practitioner, or physician?s personal injury legal assistant for ongoing care. If your symptoms become worse or you do not improve as expected and you are unable to reach your usual health care provider, you should return to the Emergency Department. We are available 24 hours a day. ANTONIA NOYOLA has been given the following list of patient education materials, prescriptions and follow-up instructions: Follow-up Instructions: With: Address: When: [facility] [place] [address] [place] [address] Business (1) In 3 days 09/29/2023 With: Address: When: Tarun CRISTOFER [facility], [address] [place] [address] [place] [address] Business (1) In 3 days 09/29/2023 With: Address: When: XXXX [facility] , [place] In 3 days In the event that this physician does not participate in your insurance network, please consult with your insurance company to find a nearby participating provider. Patient Education Materials: A MESSAGE TO ALL PATIENTS REGARDING OPIOIDS PRESCRIPTION OPIOIDS: WHAT YOU NEED TO KNOW Prescription opioids can be used to help relieve njfncnqr-vr-kgwzvo pain and are often prescribed following a [...] guidance from the Food and Drug Administration (www.fda.gov/Drugs/Res ourcesForYou). ? Visit www.cdc.gov/drugoverdo se to learn about the risks of opioids abuse and overdose. (more content not included)... Normal [facility] B hCG Qualon 09-26-2023 Beta HCG ( test) Ql Negative Normal [facility] Comment on above: Order Comment: FER dubois attempting lab work from IV start per Pt request. Phleb on standby if unable to get labs, [id number] 09/26/2023 14:42:36 EDT Performed By: #### 2 040033, 0224294, 2847582, 86375573, 63829784 #### [facility] Laboratory [address] [place] [address] CBC w/ Auto Diffon 4 Anisocytosis Ql (Bld) PRESENT Invalid Interpretation Code [facility] Comment on above: Performed By: #### 2 654782, 7761337, 1315672, 26377832, 38814623 #### [facility] Laboratory [address] [place] [address]60 Basophils/100 WBC (Bld) 0.8 % Normal 0.0-2.0 [facility] Comment on above: Performed By: #### 2 334137, 0918764, 5183008, 58373438, 67115845 #### [facility] Laboratory [address] [place] [address] Basophils/Leukocytes Auto (Bld) [Pure # fraction] 0.1 E9/L Normal 0.0-0.2 [facility] Comment on above: Performed By: #### 2 033144, 2151996, 4583767, 69954167, 07010853 #### [facility] Laboratory [address] [place] [address] 25237 Eosinophils (Bld) [#/Vol] 0.0 E9/L Normal 0.0-0.5 [facility] Comment on above: Performed By: #### 2 792318, 1951442, 3326353, 12041385, 11445422 #### [facility] Laboratory [address] [place] [address] 50561 Eosinophils/100 WBC (Bld) 0.0 % Normal 0.0-8.0 [facility] Comment on above: Performed By: #### 2 480035, 7086994, 0020760, 64338468, 91720353 #### [facility] Laboratory [address] [place] [address] 75973 Hypochromia Auto Ql (Bld) PRESENT Invalid Interpretation Code [facility] Comment on above: Performed By: #### 2 971502, 4767111, 2676345, 24323258, 12288802 #### [facility] Laboratory [address] [place] [address] Lymphocytes (Bld) [#/Vol] 1.6 E9/L Normal 1.0-4.0 [facility] Comment on above: Performed By: #### 2 495039, 2874100, 1955611, 47575449, 60872569 #### [facility] Laboratory [address] [place] [address] Lymphocytes/100 WBC (Bld) 22.7 % Normal 14.0-50.0 [facility] Comment on above: Performed By: #### 2 140686, 3055039, 2701368, 31321188, 10994124 #### [facility] Laboratory [address] [place] [address] 17596 Microcytes Ql (Bld) PRESENT Invalid Interpretation Code [facility] Comment on above: Performed By: #### 2 296042, 7488698, 5599100, 32930895, 89308743 #### [facility] Laboratory [address] [place] [address] 91999 Monocytes (Bld) [#/Vol] 0.3 E9/L Normal 0.2-1.0 [facility] Comment on above: Performed By: #### 2 625499, 3783516, 2743397, 61901615, 88607809 #### [facility] Laboratory [address] [place] [address] 30747 Neutrophils (Bld) [#/Vol] 5.1 E9/L Normal 2.0-7.5 [facility] Comment on above: Performed By: #### 2 516339, 8648582, 4192070, 65704731, 84038741 #### [facility] Laboratory [address] [place] [address] Neutrophils/100 WBC (Bld) 71.6 % Normal 36.0-75.0 [facility] Comment on above: Performed By: #### 2 320845, 3714093, 0079800, 45765287, 45287518 #### [facility] Laboratory [address] [place] [address] 21178 Erythrocyte distribution width (RBC) [Ratio] 17.8 % High 10.9-14.2 [facility] Comment on above: Performed By: #### 2 632474, 5038784, 6888108, 00862079, 11933621 #### [facility] Laboratory [address] [place] [address] Hematocrit (Bld) [Volume fraction] 36.2 % Normal 34.0-46.0 [facility] Comment on above: Performed By: #### 2 967216, 0087314, 7840998, 01867356, 61866840 #### [facility] Laboratory [address] [place] [address] Hemoglobin (Bld) [Mass/Vol] 11.2 g/dL Low 12.0-16.0 [facility] Comment on above: Performed By: #### 2 615334, 9793793, 5625785, 65433464, 22190314 #### [facility] Laboratory [address] [place] [address] 75482 MCH (RBC) [Entitic mass] 23.2 pg Low 27.0-34.0 [facility] Comment on above: Performed By: #### 2 791750, 5205297, 9822265, 23226205, 22109469 #### [facility] Laboratory [address] [place] [address] 61472 MCHC (RBC) [Mass/Vol] 31.0 g/dL Low 31.4-36.0 [facility] Comment on above: Performed By: #### 2 356082, 7307886, 4719217, 64383670, 75250130 #### [facility] Laboratory [address] [place] [address] MCV (RBC) [Entitic vol] 74.9 fL Low 80.0-100.0 F [facility] Comment on above: Performed By: #### 2 873429, 6991533, 2325910, 28788498, 32760192 #### [facility] Laboratory [address] [place] [address] Platelet mean volume (Bld) [Entitic vol] 7.5 fL Normal 6.4-10.8 [facility] Comment on above: Performed By: #### 2 130849, 4176512, 0582355, 61421642, 45747414 #### [facility] Laboratory [address] [place] [address] Platelets (Bld) [#/Vol] 461.0 E9/L Normal 150.0-500.0 [facility] Comment on above: Performed By: #### 2 457367, 9788597, 8672745, 74869674, 88311151 #### [facility] Laboratory [address] [place] [address] RBC (Bld) [#/Vol] 4.8 E12/L Normal 4.3-5.9 [facility] Comment on above: Performed By: #### 2 257643, 4131804, 8801025, 51579624, 35469827 #### [facility] Laboratory [address] [place] [address] WBC corrected for nucl RBC Auto (Bld) [#/Vol] 7.1 E9/L Normal 4.0-11.0 [facility] Comment on above: Performed By: #### 2 381276, 3684427, 9775530, 06777888, 14270601 #### [facility] Laboratory [address] [place] [address] CHEMISTRYOrdered By: SYSTEM SYSTEM on 09-26-2023 Amphetamines [...] 15 mmol/L Normal 6 - 16 mEq/L Remisol Chem AST [Catalytic activity/Vol] 16 [iU]/d Normal [...] Chem eGFR 114 mL/min/1.73 m2 Normal >=59mL/mi n/ 1.73 m2 Remisol Chem Globulin (S) [Mass/Vol] 3.6 [...] 09-26-2023 Albumin [Mass/Vol] 4.7 g/dL Normal 3.3-5.0 [facility] Comment on above: Performed By: #### 2 484199, 6735015, 9911863, 05725678, 89166206 #### [facility] Laboratory [address] [place] [address] Albumin/Globulin (S) [Mass conc ratio] 1.3 Normal 1.1-2.2 [facility] Comment on above: Performed By: #### 2 282079, 4784732, 0350243, 69681849, 59250029 #### [facility] Laboratory [address] [place] [address] ALP [Catalytic activity/Vol] 61 Int._Unit/L Normal 21-98 [facility] Comment on above: Performed By: #### 2 949193, 0475415, 6264795, 84937436, 49626984 #### [facility] Laboratory [address] [place] [address] ALT No additional P-5'-P [Catalytic activity/Vol] 11 Int._Unit/L Normal 6-46 [facility] Comment on above: Performed By: #### 2 732983, 9776757, 7603561, 57902362, 64135030 #### [facility] Laboratory [address] [place] [address] Anion gap [Moles/Vol] 15 mmol/L Normal 6-16 [facility] Comment on above: Performed By: #### 2 981590, 5209637, 8265850, 74505693, 23210229 #### [facility] Laboratory [address] [place] [address] AST [Catalytic activity/Vol] 16 Int._Unit/L Normal 5-43 [facility] Comment on above: Performed By: #### 2 235389, 9338532, 5142113, 48033291, 10706879 #### [facility] Laboratory [address] [place] [address] Bilirubin [Mass/Vol] 0.8 mg/dL Normal 0.0-1.1 [facility] Comment on above: Performed By: #### 2 254978, 6061510, 4480414, 19404393, 44985583 #### [facility] Laboratory [address] [place] [address] Calcium [Mass/Vol] 9.7 mg/dL Normal 8.9-11.1 [facility] Comment on above: Performed By: #### 2 684002, 2780391, 9282647, 28485027, 77983870 #### [facility] Laboratory [address] [place] [address] Chloride [Moles/Vol] 107 mmol/L Normal 101-111 [facility] Comment on above: Performed By: #### 2 472131, 0772443, 6335466, 62744930, 81636866 #### [facility] Laboratory [address] [place] [address] CO2 [Moles/Vol] 20 mmol/L Low 21-31 [facility] Comment on above: Performed By: #### 2 729471, 4154230, 7241285, 95495131, 31669566 #### [facility] Laboratory [address] [place] [address] Creatinine [Mass/Vol] 0.7 mg/dL Normal 0.5-1.3 [facility] Comment on above: Performed By: #### 2 628081, 2438038, 7609224, 99035525, 72485578 #### [facility] Laboratory [address] [place] [address] Globulin (S) [Mass/Vol] 3.6 g/dL Normal 1.4-4.0 [facility] Comment on above: Performed By: #### 2 114055, 9322041, 1152001, 86259397, 16339325 #### [facility] Laboratory [address] [place] [address] Glucose [Mass/Vol] 120 mg/dL Normal 55-199 [facility] Comment on above: Performed By: #### 2 984971, 0404857, 8312938, 61004985, 54442422 #### [facility] Laboratory [address] [place] [address] Potassium [Moles/Vol] 3.8 mmol/L Normal 3.5-5.3 [facility] Comment on above: Performed By: #### 2 399534, 0444055, 2395055, 69008434, 30045728 #### [facility] Laboratory [address] [place] [address] Protein [Mass/Vol] 8.3 g/dL High 6.0-7.8 [facility] Comment on above: Performed By: #### 2 699193, 2731949, 9594547, 15901378, 48635586 #### [facility] Laboratory [address] [place] [address] Sodium [Moles/Vol] 138 mmol/L Normal 135-145 [facility] Comment on above: Performed By: #### 2 422588, 3330263, 9179433, 18821589, 49585075 #### [facility] Laboratory [address] [place] [address] Urea nitrogen [Mass/Vol] 5 mg/dL Normal 5-21 [facility] Comment on above: Performed By: #### 2 599481, 3639850, 2530505, 62290767, 59028732 #### [facility] Laboratory [address] [place] [address] Urea nitrogen/Creatinine [Mass ratio] 7 No Units Low 10-20 [facility] Comment on above: Performed By: #### 2 783854, 4151483, 5910837, 04974390, 26259211 #### [facility] Laboratory [address] [place] [address] CT Abdomen/Pelvis w/ Contras ton 09-26-2023 CT [...] 300 Contrast amount in ml's: 100 Normal [facility] Consent for Treatmenton 09-11 Consent for Treatment [id number] 0TIFF Normal [facility] Discharge Instructionson Discharge Instructions [id number] 0TIFF Normal [facility] ED Note-Physicianon 09-26-19 24 ED Note-Physician Basic Information Time Seen: Konstantin Penny DO 09/26/2023 14:25 Chief Complaint c/o nausea and left abdominal pain radiating to back that started back up yesterday. took bentyl ibuprofen and tramadol around noon with no relief. recent admission to [facility] a week ago for intusseption, ovarian cyst, elevated lactic. denies V/D History of Present Illness 38 year old female presents to the emergency department with chief complaint of abdominal pain. patient states this pain started yesterday and has associated nausea without vomiting. Patient states she was admitted 10 days ago to [facility] for intussusception, ovarian cysts, and elevated lactic. She states she was admitted for one day and that she had another CT done that showed resolution of the intussusception. She reports she was discharged home but went back to [place] yesterday for similar pain. She reports [...] and noted. We did review workup from [facility] just recently. Risks and benefits [...] differential diagnosis. We did refer her to FAMILY SERVICES MANAGER for follow-up. Patient also was found to have some constipation on CT therefore we talked about dietary and lifestyle modifications and I did prescribe MiraLAX here as well. She is to follow-up in the outpatient setting return to ER symptoms should change or worsen she is comfortable with this plan. I, Dr. Penny had a klkn-sr-qhjc interaction with the patient. I personally performed a physical exam and medical decision making. I have verified the documentation by the student as accurately representing the information obtained. Assessment/Plan Abdominal pain (R10.9: Unspecified abdominal pain) Constipation (K59.00: Constipation, unspecified) Ovarian cyst (N83.209: Unspecified ovarian cyst, unspecified side) Orders: acetaminophen-oxycodon e, 1 tab(s), Tab, Oral, Once, Stop date 09/26/23 17:16:00 EDT, STAT, Start date 09/26/23 17:16:00 EDT dicyclomine, 20 mg = 2 mL, Injection, IntraMuscular, Once, Stop date 09/26/23 17:16:00 EDT, STAT, Start date 09/26/23 17:16:00 EDT, 09/26/23 17:16:00 EDT diflunisal, 500 mg = 1 tab(s), Oral, q12hr, # 20 tab(s), Refills(s) 0, Pharmacy: [facility]/pharmacy #[id number], 165, cm, 09/26/23 14:18:00 EDT, Height/Length Dosing, 81.2, kg, 09/26/23 14:18:00 EDT, Weight Dosing hyoscyamine, 0.125 mg = 1 tab(s), Oral, QID, X 5 day(s), # 20 tab(s), Refills(s) 0, Pharmacy: [facility]/pharmacy #[id number], 165, cm, 09/26/23 14:18:00 EDT, Height/Length Dosing, 81.2, kg, 09/26/23 14:18:00 EDT, Weight Dosing ketorolac, 30 mg = 1 mL, Injection, IV, Once, Stop date 09/26/23 15:40:00 EDT, STAT, Start date 09/26/23 15:40:00 EDT, 09/26/23 15:40:00 EDT polyethylene glycol 3350, 17 gm, Oral, Daily, X 7 day(s), # 119 gm, Refills(s) 0, Pharmacy: [facility]/pharmacy #[id number], 165, cm, 09/26/23 14:18:00 EDT, (more content not included)... Normal [facility] Comment on above: Result Comment: Elec tronically [...] Lipase [Catalytic activity/Vol] 18 U/L Normal 13-58 [facility] Comment on above: Performed By: #### 2 992400, 8533204, 2081161, 96319416, 48500088 #### [facility] Laboratory [address] [place] [address] Outside Recordson 09-26-2023 Outside Records [id number]. [id number] Normal [facility] SEROLOGYOrdered By: Nohemi Taylor on 09-26-2023 Beta HCG ( test) Ql Negative (09/26/23 2:45 PM) Normal [facility] Man Sero U Drug Screenon 09-26-2023 Amphetamines Screen method >1000 ng/mL Ql (U) Negative Normal NEGATIVE [facility] Comment on above: Result Comment: Nega tive Cutoff: <1000 ng/mL Performed By: #### 2 221761, 2059691, 3052292, 15597844, 91706169 #### [facility] Laboratory [address] [place] [address] Barbiturates Screen Ql (U) Negative Normal NEGATIVE [facility] Comment on above: Result Comment: Nega tive Cutoff: <200 ng/mL Performed By: #### 2 914461, 4476642, 3100211, 79260780, 65202573 #### [facility] Laboratory [address] [place] [address] Benzodiazepines Ql (U) Negative Normal NEGATIVE [facility] Comment on above: Result Comment: Nega tive Cutoff: <200 ng/mL Performed By: #### 2 012143, 4260685, 1178499, 75878611, 97632116 #### [facility] Laboratory [address] [place] [address] Cannabinoids Screen Ql (U) Negative Normal NEGATIVE [facility] Comment on above: Result Comment: Nega tive Cutoff: <50 ng/mL Performed By: #### 2 137190, 2536828, 0736106, 60324424, 85486916 #### [facility] Laboratory [address] [place] [address] Cocaine Ql (U) Negative Normal NEGATIVE [facility] Comment on above: Result Comment: Nega tive Cutoff: <300 ng/mL Performed By: #### 2 809587, 0459322, 2198724, 57804538, 47624044 #### [facility] Laboratory [address] [place] [address] Opiates Screen Ql (U) Negative Normal NEGATIVE [facility] Comment on above: Result Comment: Nega tive Cutoff: <300 ng/mL Performed By: #### 2 728637, 4567286, 9315615, 03553432, 25733348 #### [facility] Laboratory [address] [place] [address] Phencyclidine Screen method >25 ng/mL Ql (U) Negative Normal NEGATIVE [facility] Comment on above: Result Comment: Nega tive Cutoff: <25 ng/mL These drug screen results are to be used for medical (i.e., treatment) purposes only. Unconfirmed drug screening results must not be used for non-medical purposes (e.g., employment testing, legal testing). Performed By: #### 2 200863, 8305609, 1863234, 27455202, 33414170 #### [facility] [address] [place] [address] U Fentanyl Negative Normal NEGATIVE [facility] Comment on above: Result Comment: Nega tive Cutoff: <5 ng/mL These drug screen results are to be used for medical (i.e., treatment) purposes only. Unconfirmed drug screening results must not be used for non-medical purposes (e.g., employment testing, legal testing). Performed By: #### 2 760419, 0971819, 5777734, 06013183, 32291061 #### [facility] [address] [place] [address] UA with Cult Rflxon 09-26-19 24 Bilirubin Ql (U) Negative Normal Negative [facility] Comment on above: Performed By: #### 2 530157, 9911437, 7057988, 22031227, 98931634 #### [facility] Laboratory [address] [place] [address] Clarity (U) Clear Normal Clear [facility] Comment on above: Performed By: #### 2 614400, 5368769, 6221024, 15630707, 80530600 #### [facility] Laboratory [address] [place] [address] Color (U) Colorless Abnormal Yellow [facility] Comment on above: Result Comment: Micr oscopic readings are only performed on those samples that meet specific criteria set forth by [facility] Laboratory. Performed By: #### 2 869147, 8594349, 9136681, 80508166, 03324794 #### [facility] Laboratory [address] [place] [address] Glucose Ql (U) Negative Normal Negative [facility] Comment on above: Performed By: #### 2 537629, 7850817, 7283049, 50892812, 78362051 #### [facility] Laboratory [address] [place] [address] Hemoglobin Auto test strip (U) [Mass/Vol] Negative Normal Negative [facility] Comment on above: Performed By: #### 2 444085, 3784069, 9261894, 93362345, 43167300 #### [facility] Laboratory [address] [place] [address] Ketones Auto test strip Ql (U) Negative Normal Negative [facility] Comment on above: Performed By: #### 2 482981, 5439398, 8852733, 74537153, 61963673 #### [facility] Laboratory [address] [place] [address] Leukocyte esterase Auto test strip Ql (U) Negative Normal Negative [facility] Comment on above: Performed By: #### 2 195303, 6240012, 2491314, 88758839, 08881687 #### [facility] Laboratory [address] [place] [address] Nitrite Auto test strip Ql (U) Negative Normal Negative [facility] Comment on above: Performed By: #### 2 674520, 4781605, 7708956, 60794412, 73518353 #### [facility] Laboratory [address] [place] [address] pH (U) 6.0 [pH] Invalid Interpretation Code 5.0-9.0 [facility] Comment on above: Performed By: #### 2 067971, 7520050, 1094881, 08529488, 95911260 #### [facility] Laboratory [address] [place] [address] Protein Ql (U) Negative Normal Negative [facility] Comment on above: Performed By: #### 2 163467, 2617672, 9987893, 75582299, 41796493 #### [facility] Laboratory [address] [place] [address] Specific gravity (U) [Rel density] 1.004 Invalid Interpretation Code 1.005-1.030 [facility] Comment on above: Performed By: #### 2 469025, 9283085, 6316583, 28480747, 38260479 #### [facility] Laboratory [address] [place] [address] Urobilinogen (U) [Mass/Vol] Negative Normal Negative [facility] Comment on above: Performed By: #### 2 708055, 1426360, 1413826, [id number], [id number] #### [facility] Laboratory [address] [place] [address] Type of Urine collection method Clean Catch Normal [facility] Comment on above: Performed By: #### 2 002803, 8733125, 8369630, 49911762, [id number] #### [facility] Laboratory [address] [place] [address] URINALYSISOrdered By: SYSTEM SYSTEM on 09-26-2023 Bilirubin Ql (U) Negative Normal Negativemg/ dL [facility] UA Auto SS Clarity (U) Clear (09/26/23 2:49 PM) Normal Clear [facility] UA Auto SS Color (U) Colorless 3 *ABN* (09/26/23 2:49 PM) Invalid Interpretation Code Yellow [facility] UA Auto SS Comment on above: Interpretive Data: M icroscopic readings are only performed on those samples that meet specific criteria set forth by [facility] Laboratory. Glucose Ql (U) Negative Normal Negativemg/ dL [facility] UA Auto SS Hemoglobin Auto test strip (U) [Mass/Vol] Negative Normal Negativemg/ dL [facility] UA Auto SS Ketones Auto test strip Ql (U) Negative Normal Negativemg/ dL [facility] UA Auto SS Leukocyte esterase Auto test strip Ql (U) Negative Normal NegativeLeu /uL [facility] UA Auto SS Nitrite Auto test strip Ql (U) Negative Normal Negativemg/ dL [facility] UA Auto SS pH (U) 6.0 *NA* (09/26/23 2:49 PM) Invalid Interpretation Code 5.0 - 9.0 [facility] UA Auto SS Protein Ql (U) Negative Normal Negativemg/ dL [facility] UA Auto SS Specific gravity (U) [Rel density] 1.004 *NA* (09/26/23 2:49 PM) Invalid Interpretation Code 1.005 - 1.030 [facility] UA Auto SS Urobilinogen (U) [Mass/Vol] Negative Normal Negativemg/ dL [facility] UA Auto SS URINALYSISOrdered By: Konstantin dillard on 09-26-2023 UA Spec Desc Clean Catch (09/26/23 2:49 PM) Normal [facility] UA Auto SS Work Phone: US Pelvis Non-OB Completeon 09-26-2023 US Pelvis [...] Transvaginal Ultrasound Performed Uterus Position Anteverted Normal [facility] US Transvaginal Non-OBon US Transvaginal Non-OB Exam Date/Time: 09/26/2023 17:41 EDT Reason for Exam: Pelvic pain Report Please see ultrasound pelvis non-OB complete report Ordering Provider: Konstantin Penny FINAL REPORT Dictated: 09/26/2023 5:53 pm Chad Mo DO Signed (Electronic Signature): 09/26/2023 5:53 pm Signed by: Chad Mo DO Transcribed by: MILLIE Technologist: HAILEY Miller [facility] eGFRon 09-26-2023 eGFR 114 mL/min/1.73 m2 Normal >=59 [facility] Comment on above: Order Comment: Order added by Discern Expert. Performed By: #### 2 648807, 9327309, 8309924, 46098979, [id number] #### [facility] Laboratory [address] [place] [address] CBC With Platelet and Differ entialon 09-06-2023 Basophils (Bld) [#/Vol] 0.1 10*3/uL Normal 0.0-0.2 Comment on above: Performed By: #### C BCWD #### [address] [place] [address] Basophils/100 WBC (Bld) 0.6 % Normal [facility] Comment on above: Performed By: #### C BCWD #### [address] [place] [address] Eosinophils (Bld) [#/Vol] 0.1 10*3/uL Normal 0.0-0.7 Comment on above: Performed By: #### C BCWD #### [address] [place] [address] Eosinophils/100 WBC (Bld) 0.6 % Normal Comment on above: Performed By: #### C BCWD #### [address] [place] [address] Erythrocyte distribution width (RBC) [Ratio] 15.9 % Critically high 11.5-14.5 Comment on above: Performed By: #### C BCWD #### [address] [place] [address] Hematocrit (Bld) [Volume fraction] 34.5 % Low 37.0-47.0 Comment on above: Performed By: #### C BCWD #### [address] [place] [address] Hemoglobin (Bld) [Mass/Vol] 10.1 g/dL Low 12.0-16.0 Comment on above: Performed By: #### C BCWD #### [address] [place] [address] Lymphocytes (Bld) [#/Vol] 4.4 10*3/uL Normal 1.0-4.8 Comment on above: Performed By: #### C BCWD #### [address] [place] [address] Lymphocytes/100 WBC (Bld) 54.2 % Normal Comment on above: Performed By: #### C BCWD #### [address] [place] [address] MCH (RBC) [Entitic mass] 22.9 pg Low 27.0-31.3 Comment on above: Performed By: #### C BCWD #### [address] [place] [address] MCHC 29.3 % Low 33.0-37.0 Comment on above: Performed By: #### C BCWD #### [address] [place] [address] MCV (RBC) [Entitic vol] 78.2 fL Low 79.4-94.8 [facility] Comment on above: Performed By: #### C BCWD #### [address] [place] [address] Monocytes (Bld) [#/Vol] 0.5 10*3/uL Normal 0.2-0.8 Comment on above: Performed By: #### C BCWD #### [address] [place] [address] Monocytes/100 WBC (Bld) 6.5 % Normal [facility] Comment on above: Performed By: #### C BCWD #### [address] [place] [address] Neutrophils (Bld) [#/Vol] 3.1 10*3/uL Normal 1.4-6.5 Comment on above: Performed By: #### C BCWD #### [address] [place] [address] Neutrophils/100 WBC (Bld) 37.9 % Normal Comment on above: Performed By: #### C BCWD #### [address] [place] [address] Platelets (Bld) [#/Vol] 482 10*3/uL Critically high 130-40 0 Comment on above: Performed By: #### C BCWD #### [address] [place] [address] RBC (Bld) [#/Vol] 4.41 10*6/uL Normal 4.20-5.40 Comment on above: Performed By: #### C BCWD #### [address] [place] [address] WBC (Bld) [#/Vol] 8.1 10*3/uL Normal 4.8-10.8 Comment on above: Performed By: #### C BCWD #### [address] [place] [address] Comprehensive Metabolic Pane van 09-06-2023 Albumin [Mass/Vol] 4.4 g/dL Normal 3.5-4.6 Comment on above: Performed By: #### C MP #### [address] [place] [address] ALP [Catalytic activity/Vol] 72 U/L Normal 40-130 Comment on above: Performed By: #### C MP #### [address] [address] ALT [Catalytic activity/Vol] 15 U/L Normal 0-33 Comment on above: Performed By: #### C MP #### [address] [address] Anion gap [Moles/Vol] 11 mmol/L Normal 9-15 [facility] Comment on above: Performed By: #### C MP #### [address] [place] [address] AST [Catalytic activity/Vol] 18 U/L Normal 0-35 Comment on above: Performed By: #### C MP #### [address] [place] [address] Bilirubin [Mass/Vol] 0.4 mg/dL Normal 0.2-0.7 [facility] Comment on above: Performed By: #### C MP #### [address] [place] [address] Calcium [Mass/Vol] 9.5 mg/dL Normal 8.5-9.9 Comment on above: Performed By: #### C MP #### [address] [place] [address] Chloride [Moles/Vol] 102 mmol/L Normal 95-107 [facility] Comment on above: Performed By: #### C MP #### [address] [place] [address] CO2 [Moles/Vol] 24 mmol/L Normal 20-31 Comment on above: Performed By: #### C MP #### [address] [place] [address] Creatinine [Mass/Vol] 0.59 mg/dL Normal 0.50-0.90 [facility] Comment on above: Performed By: #### C MP #### [address] [place] [address] GFR >90.0 Normal >60 Comment on above: Result Comment: Meghan atric [...] secretion. Performed By: #### C MP #### [address] [place] [address] Globulin (S) [Mass/Vol] 3.5 g/dL Normal 2.3-3.[address] [facility] Comment on above: Performed By: #### C MP #### [address] [place] [address] Glucose [Mass/Vol] 98 mg/dL Normal 70-99 Comment on above: Performed By: #### C MP #### [address] [place] [address] Potassium [Moles/Vol] 3.2 mmol/L Low 3.4-4.9 [facility] Comment on above: Performed By: #### C MP #### [address] [place] [address] Protein [Mass/Vol] 7.9 g/dL Normal 6.3-8.0 Comment on above: Performed By: #### C MP #### [address] [place] [address] Sodium [Moles/Vol] 137 mmol/L Normal 135-144 Comment on above: Performed By: #### C MP #### [address] [place] [address] Urea nitrogen [Mass/Vol] 4 mg/dL Low 6-20 Comment on above: Performed By: #### C MP #### [address] [place] [address] US NON OB TRANSVAGINALon US NON OB [...] Jessy Campos MD 09/06/23 Final result Normal US PELVIS COMPLETEon 024 US PELVIS COMPLETE [...] Jessy Campos MD 09/06/23 Final result Normal Urinalysis, reflex to cultur silvino 09-06-2023 Urine Reflexed to Culture Not Indicated Normal Comment on above: Performed By: #### U AR #### [address] [place] [id number] 122-90 Bilirubin Ql (U) Negative Normal Negative Comment on above: Performed By: #### U AR #### [address] [place] [address] Clarity (U) Clear Normal Clear Comment on above: Performed By: #### U AR #### [address] [place] [address] Color (U) Yellow Normal [facility] Comment on above: Performed By: #### U AR #### [address] [place] [address] Glucose Ql (U) >=1000 Abnormal Negative Comment on above: Performed By: #### U AR #### [address] [place] [address] Hemoglobin Ql (U) TRACE Abnormal Negative Comment on above: Performed By: #### U AR #### [address] [place] [address] Ketones Ql (U) >=80 Abnormal Negative Comment on above: Performed By: #### U AR #### [address] [place] [address] Leukocyte esterase Test strip Ql (U) Negative Normal Negative Comment on above: Performed By: #### U AR #### [address] [place] [address] Nitrite Ql (U) Negative Normal Negative Comment on above: Performed By: #### U AR #### [address] [place] [address] pH (U) 5.0 [pH] Normal 5.0-9.0 Comment on above: Performed By: #### U AR #### [address] [place] [address] Protein Ql (U) TRACE Abnormal Negative Comment on above: Performed By: #### U AR #### [address] [place] [address] Specific gravity (U) [Rel density] 1.025 Normal 1.005-1.03 Comment on above: Performed By: #### U AR #### [address] [place] [address] Urobilinogen Qn (U) 0.2 {Ivone'U}/dL Normal < 2.0 Comment on above: Performed By: #### U AR #### [address] [place] [address] Urine Microscopicon 09-06-19 24 Bacteria LM.HPF (Urine sed) [#/Area] Negative Normal Negative Comment on above: Performed By: #### U ARELIS #### [address] [place] [address] Urine Epithelial Cells Auto 0-2 Normal 0-5 Comment on above: Performed By: #### U ARELIS #### [address] [place] [address] Urine Hyaline Casts Auto 0-1 Normal 0-5 Comment on above: Performed By: #### U ARELIS #### [address] [place] [address] Urine RBC Auto 3-5 Abnormal 0-5 Comment on above: Performed By: #### U ARELIS #### [address] [place] [address] Urine WBC Auto 0-2 Normal 0-5 Comment on above: Performed By: #### U ARELIS #### [address] [place] [address] ED Note-Physicianon 08-01-19 24 ED Note-Physician Basic [...] endometritis for which she follows with a ASSISTANT BOILER OPERATOR at the [facility]. Review of Systems A 10 [...] for discharge home and follow-up with her ASSISTANT BOILER OPERATOR. Short course of pain medication as prescribed after an [place]AR[place] review for this patient. Return precautions were discussed. All questions were answered. The patient was discharged home for outpatient follow-up for her acute on chronic pain. Assessment/Plan Abdominal pain, acute (R10.9: Unspecified abdominal pain) Ordered: acetaminophen-oxycodon e, 1 tab(s), Oral, q6hr Pain 8-10 for 3 day(s), 12 tab(s), Refill(s) 0, [facility] #[id number], 165.1, cm, 07/31/23 15:42:00 EST, Height/Length Dosing, 82.9, kg, 07/31/23 15:42:00 EST, Weight Dosing Orders: acetaminophen-oxycodon e, 1 EA, Tab, Oral, Once, Stop date [...] Inj, 4 mg, IV Push TO GO acetaminophen-oxycodon e 325 mg - 5 mg, 1 EA, Oral Disposition Plan Patient Discharge Condition Stable Discharge D (more content not included)... Normal [facility] Comment on above: Result Comment: Elec tronically Signed By: Jignesh Dumont DO\.br\Date and Time Signed: 08/01/23 09:21 EST B hCG Qualon 07-31-2023 Beta HCG ( test) Ql Negative Normal [facility] Comment on above: Performed By: #### 2 855999, 0938294, 0141596, 79246010, [id number] #### [facility] Laboratory [address] [place] [address] BMPon 07-31-2023 Anion gap [Moles/Vol] 15 mmol/L Normal 6-16 [facility] Comment on above: Performed By: #### 2 724605, 6984077, 5752939, 09243233, 15620576 #### [facility] Laboratory [address] [place] [address] BUN/Creat Ratio 4 No Units Low 10-20 [facility] Comment on above: Performed By: #### 2 239946, 1791371, 5349512, 36493034, 12691868 #### [facility] Laboratory [address] [place] [address] Calcium [Mass/Vol] 9.6 mg/dL Normal 8.9-11.1 [facility] Comment on above: Performed By: #### 2 925066, 7547058, 8212308, 10066008, 62677845 #### [facility] Laboratory [address] [place] [address] Chloride [Moles/Vol] 106 mmol/L Normal 101-111 [facility] Comment on above: Performed By: #### 2 659607, 7693234, 5547732, 50992174, 26730012 #### [facility] Laboratory [address] [place] [address] CO2 [Moles/Vol] 21 mmol/L Normal 21-31 [facility] Comment on above: Performed By: #### 2 025982, 7157581, 2925781, 60304916, 60845489 #### [facility] Laboratory [address] [place] [address] Creatinine [Mass/Vol] 0.9 mg/dL Normal 0.5-1.3 [facility] Comment on above: Performed By: #### 2 559361, 4567266, 2126476, 45941978, 26811541 #### [facility] Laboratory [address] [place] [address] Glucose [Mass/Vol] 109 mg/dL Normal 55-199 [facility] Comment on above: Performed By: #### 2 200323, 9620019, 3753639, 21599806, 77400549 #### [facility] Laboratory [address] [place] [address] Potassium [Moles/Vol] 3.6 mmol/L Normal 3.5-5.3 [facility] Comment on above: Performed By: #### 2 688365, 0728112, 1153824, 38664870, 02306327 #### [facility] Laboratory [address] [place] [address] Sodium [Moles/Vol] 138 mmol/L Normal 135-145 [facility] Comment on above: Performed By: #### 2 998515, 4178119, 7814363, 95687878, 59930725 #### [facility] Laboratory [address] [place] [address] Urea nitrogen [Mass/Vol] mg/dL Low 5-21 [facility] Comment on above: Performed By: #### 2 211720, 4543823, 2836048, 76474414, 78015245 #### [facility] Laboratory [address] [place] [address] CBC w/ Auto Diffon 4 Anisocytosis Ql (Bld) PRESENT Invalid Interpretation Code [facility] Comment on above: Performed By: #### 2 497978, 0772637, 7454086, 98475685, 12920828 #### [facility] Laboratory [address] [place] [address] Microcyte PRESENT Invalid Interpretation Code [facility] Comment on above: Performed By: #### 2 137403, 2748724, 4154206, 97169423, 07261927 #### [facility] Laboratory [address] [place] [address] RBC morphology finding Nom (Bld) SEE MORPHOLOGY Invalid Interpretation Code [facility] Comment on above: Performed By: #### 2 771073, 9427813, 1825736, 02951331, 94052912 #### [facility] Laboratory [address] [place] [address] Basophil Absolute 0.1 E9/L Normal 0.0-0.2 [facility] Comment on above: Performed By: #### 2 426070, 1314677, 6570048, 01430804, 61205330 #### [facility] Laboratory [address] [place] [address] Basophils/100 WBC (Bld) 1.1 % Normal 0.0-2.0 [facility] Comment on above: Performed By: #### 2 932657, 6894702, 5734340, 58014300, 17278681 #### [facility] Laboratory [address] [place] [address] Eos Absolute 0.0 E9/L Normal 0.0-0.5 [facility] Comment on above: Performed By: #### 2 247773, 6572168, 5925828, 30899124, 74220352 #### [facility] Laboratory [address] [place] [address] Eosinophils/100 WBC (Bld) 0.2 % Normal 0.0-8.0 [facility] Comment on above: Performed By: #### 2 890191, 4189935, 9775793, 37327543, 33245420 #### [facility] Laboratory [address] [place] [address] Erythrocyte distribution width (RBC) [Ratio] 16.5 % High 10.9-14.2 [facility] Comment on above: Performed By: #### 2 951740, 3980014, 7759362, 88881054, 83385564 #### [facility] Laboratory [address] [place] [address] Hematocrit (Bld) [Volume fraction] 36.0 % Normal 34.0-46.0 [facility] Comment on above: Performed By: #### 2 766381, 0920548, 0978691, 26979340, 94430085 #### [facility] Laboratory [address] [place] [address] Hemoglobin (Bld) [Mass/Vol] 11.4 g/dL Low 12.0-16.0 [facility] Comment on above: Performed By: #### 2 931933, 2824582, 6669289, 48709919, 49648262 #### [facility] Laboratory [address] [place] [address] Lymph Absolute 2.2 E9/L Normal 1.0-4.0 [facility] Comment on above: Performed By: #### 2 537986, 0858079, 0143867, 53015039, 41523385 #### [facility] Laboratory [address] [place] [address] Lymphocytes/100 WBC (Bld) 25.3 % Normal 14.0-50.0 [facility] Comment on above: Performed By: #### 2 464566, 6456043, 6433684, 20442189, 34724117 #### [facility] Laboratory [address] [place] [address] MCH (RBC) [Entitic mass] 24.0 pg Low 27.0-34.0 [facility] Comment on above: Performed By: #### 2 756778, 5818500, 9026139, 35651658, 86355894 #### [facility] Laboratory [address] [place] [address] MCHC (RBC) [Mass/Vol] 31.9 g/dL Normal 31.4-36.0 [facility] Comment on above: Performed By: #### 2 828302, 9825527, 0221524, 98498665, 29640991 #### [facility] Laboratory [address] [place] [address] MCV (RBC) [Entitic vol] 75.2 fL Low 80.0-100.0 [facility] Comment on above: Performed By: #### 2 948152, 6032968, 0326385, 26851700, 77113922 #### [facility] Laboratory [address] [place] [address] [place] Absolute 0.5 E9/L Normal 0.2-1.0 [facility] Comment on above: Performed By: #### 2 835652, 8515697, 9549140, 54127604, 67679446 #### [facility] Laboratory [address] [place] [address] Monocytes/100 WBC (Bld) 5.4 % Normal 4.0-14.0 F [facility] Comment on above: Performed By: #### 2 648043, 5101689, 9504596, 97144417, 63234690 #### [facility] Laboratory [address] [place] [address] Neutro Absolute 5.9 E9/L Normal 2.0-7.5 [facility] Comment on above: Performed By: #### 2 445119, 3789219, 9566970, 97299089, 62418729 #### [facility] Laboratory [address] [place] [address] Neutro Auto 68.0 % Normal 36.0-75.0 [facility] Comment on above: Performed By: #### 2 116014, 9670468, 4509550, 64572902, 19820995 #### [facility] Laboratory [address] [place] [address] Platelet 612.0 E9/L High 150.0-500.0 [facility] Comment on above: Performed By: #### 2 636315, 4743654, 5568396, 75145611, 61328041 #### [facility] Laboratory [address] [place] [address] Platelet mean volume (Bld) [Entitic vol] 7.4 fL Normal 6.4-10.8 [facility] Comment on above: Performed By: #### 2 405044, 7703158, 7420799, 32063926, 83016921 #### [facility] Laboratory [address] [place] [address] RBC 4.7 E12/L Normal 4.3-5.9 [facility] Comment on above: Performed By: #### 2 143803, 3078225, 4215597, 77008272, 41379646 #### [facility] Laboratory [address] [place] [address] WBC 8.6 E9/L Normal 4.0-11.0 [facility] Comment on above: Performed By: #### 2 906945, 9610758, 7573320, 70722796, 45041963 #### [facility] Laboratory [address] [place] [address] CHEMISTRYOrdered By: SYSTEM SYSTEM on 07-31-2023 Albumin [Mass/Vol] 4.6 g/dL Normal 3.3 - 5.0 gm/dL Remisol Chem Albumin/Globulin [Mass ratio] 1.4 {ratio} Normal 1.1 - 2.2 [facility] Alk Phos 73 [iU]/d Normal 21 - 98 Int._Unit/L Remisol Chem ALT 10 [iU]/d Normal 6 - 46 Int._Unit/L Remisol Chem Anion gap [Moles/Vol] 15 mmol/L Normal 6 - 16 mEq/L Remisol Chem AST 11 [iU]/d Normal 5 - [...] Chem eGFR 85 mL/min/1.73 m2 Normal >=59mL/min / 1.73 m2 Remisol Chem Globulin (S) [Mass/Vol] 3.3 [...] for diverticulitis. Lymph Nodes: No lymphadenopathy. Report Mesentery/peritoneum/r etroperitoneum: No ascites or mass. Vasculature: No abdominal [...] Oral contrast amount in ml's: 0 Normal [facility] Discharge Instructionson Discharge Instructions [id number] Normal [facility] ED Clinical Summaryon 2023 ED Clinical Summary [address] [id number] ED Clinical Summary Person Information Name: ANTONIA NOYOLA/NewMary Grace Age: 38 Years : 1985 Sex: Female Language: Citizen Of [place] PCP: NONE, XXXX Marital Status: Visit Id: [...] 07/31/2023 18:03:59 ADDRESS: [address] [place] [id number] PHYS DOC NOTES: MEDICAL INFORMATION: Prescriptions Given: New Medications [id number] [address] [place] [id number], [phone] acetaminophen-oxycodon e (Percocet 5 mg-325 mg oral tablet) 1 Tablets By Mouth every 6 hours as needed Pain 8-10 for 3 Days. Refills: 0. Medications to Continue with No Changes Other Medications alprazolam (alprazolam 0.25 mg Tab) budesonide-formoterol (Symbicort 80/4.5 inhalation aerosol with adapter) citalopram (citalopram 20 mg Tab) By Mouth every day. PATIENT EDUCATION INFORMATION: Instructions: Abdominal Pain, Adult Follow up: With: Address: When: Follow-up with your ASSISTANT BOILER OPERATOR at [facility] In 3 days 08/03/2023 Comments: [...] worsening symptoms. DIAGNOSIS: Abdominal pain, acute Normal [facility] ED Patient Education Noteon 07-31-2023 ED Patient [...] these instructions at home: Medicines ? Take nwlw-fwk-rcwoahk and prescription medicines only as told by [...] your condition for any changes. ? Take nvtt-pcw-oxcsoeq and prescription medicines only as told by [...] provider. Document Revised: 07/18/2020 Document Reviewed: 10/08/2019 [employer] Patient Education ? 2022 [employer] Normal [facility] ED Patient Summaryon 024 ED Patient Summary [address] [address] Patient Discharge Instructions Person Information Name: ANTONIA NOYOLA Age: 38 Years Arrival Date: 07/31/2023 15:33:06 Discharge Diagnosis: Abdominal pain, acute Primary Care Physician: NONE, XXXX Provider Information Primary Provider: Tim DO, Jignesh M. Advanced Fire Protection Specialist:None The exam and treatment you received in the Emergency Department were for an urgent problem and are not intended as complete care. It is important that you follow up with a doctor, nurse practitioner, or physician?s personal injury legal assistant for ongoing care. If your symptoms become worse or you do not improve as expected and you are unable to reach your usual health care provider, you should return to the Emergency Department. We are available 24 hours a day. ANTONIA NOYOLA has been given the following list of patient education materials, prescriptions and follow-up instructions: Follow-up Instructions: With: Address: When: Follow-up with your ASSISTANT BOILER OPERATOR at [facility] In 3 days 08/03/2023 Comments: [...] opioids can be used to help relieve zwxppbgh-gl-fddndy pain and are often prescribed following a [...] and al (more content not included)... Normal [facility] HEMATOLOGYOrdered By: Sloane Mazariegos on 07-31-2023 Anisocytosis [...] Low 80.0 - 100.0 fL Remisol Heme [place] Absolute 0.5 E9/L Normal 0.2 - 1.0 [...] 07-31-2023 Albumin [Mass/Vol] 4.6 g/dL Normal 3.3-5.0 [facility] Comment on above: Performed By: #### 2 100853, 3822153, 7937163, 59264129, 44327664 #### [facility] Laboratory [address] [place] [address] Albumin/Globulin [Mass ratio] 1.4 {ratio} Normal 1.1-2.2 [facility] Comment on above: Performed By: #### 2 126289, 1394494, 9395150, 98934929, 59221173 #### [facility] Laboratory [address] [place] [address] Alk Phos 73 Int._Unit/L Normal 21-98 [facility] Comment on above: Performed By: #### 2 065566, 6342980, 2773404, 41512522, 51262774 #### [facility] Laboratory [address] [place] [address] ALT 10 Int._Unit/L Normal 6-46 [facility] Comment on above: Performed By: #### 2 463505, 2131732, 3072303, 48640732, 32474654 #### [facility] Laboratory [address] [place] [address] AST 11 Int._Unit/L Normal 5-43 [facility] Comment on above: Performed By: #### 2 457875, 6877724, 2814202, 53518790, 22849202 #### [facility] Laboratory [address] [place] [address] Bili Direct 0.1 mg/dL Normal 0.0-0.4 [facility] Comment on above: Performed By: #### 2 314852, 9015357, 1359689, 79611615, 18472975 #### [facility] Laboratory [address] [place] [address] Bili Indirect 0.4 mg/dL Normal 0.1-0.9 [facility] Comment on above: Performed By: #### 2 263905, 2113384, 0505144, 99545953, 85821698 #### [facility] Laboratory [address] [place] [address] Bili Total 0.5 mg/dL Normal 0.0-1.1 [facility] Comment on above: Performed By: #### 2 590790, 2234572, 7211183, 01534269, 64608654 #### [facility] Laboratory [address] [place] [address] Globulin (S) [Mass/Vol] 3.3 g/dL Normal 1.4-4.0 [facility] Comment on above: Performed By: #### 2 762681, 5282985, 8744821, 21061808, 20843283 #### [facility] Laboratory [address] [place] [address] Protein [Mass/Vol] 7.9 g/dL High 6.0-7.8 [facility] Comment on above: Performed By: #### 2 607030, 0491037, 1491829, 48127824, 00770269 #### [facility] Laboratory [address] [place] [address] Monitor Recordon 07-31-2023 Monitor Record [id number] 20 [id number]#1. 00TIFF Normal [facility] SEROLOGYOrdered By: Felicity patel on 07-31-2023 Beta HCG ( test) Ql Negative (07/31/23 4:20 PM) Normal [facility] Man Sero UA With Cult Reflexon 2023 Bacteria LM Ql (Urine sed) TRACE Normal Trace [facility] Comment on above: Performed By: #### 1 0335962 ####[facility] [address] [place] [address] Bilirubin Ql (U) Negative Normal Negative [facility] Comment on above: Performed By: #### 1 0370046 ####[facility] [address] [place] [address] Clarity (U) CLEAR Normal Clear [facility] Comment on above: Performed By: #### 1 0931821 ####[facility] [address] [place] [address] Color (U) YELLOW Normal Yellow [facility] Comment on above: Performed By: #### 1 6067065 ####[facility] [address] [place] [address] Epithelial cells.squamous LM.HPF (Urine sed) [#/Area] 0-2 Normal 0-2 [facility] Comment on above: Performed By: #### 1 7330857 ####[facility] [address] [place] [address] Glucose Test strip (U) [Mass/Vol] Negative Normal Negative [facility] Comment on above: Performed By: #### 1 7536461 ####[facility] Vtr[address] [place] [address] Hemoglobin Ql (U) Negative Normal Negative [facility] Comment on above: Performed By: #### 1 6341369 ####[facility] [address] [place] [address] Ketones (U) [Mass/Vol] 1+ Abnormal Negative Fi [facility] Comment on above: Performed By: #### 1 0461244 ####[facility] [address] [place] [address] [place].plasma/[place]. RBC (Bld) [Mass ratio] 0-3 Normal 0-3 [facility] Comment on above: Performed By: #### 1 7334172 ####[facility] [address] [place] [address] Mucus Ql (Urine sed) TRACE Normal Fish [facility] Comment on above: Performed By: #### 1 3677468 ####[facility] X[address] [place] [address] Nitrite Ql (U) Negative Normal Negative [facility] Comment on above: Performed By: #### 1 8923874 ####[facility] [address] [place] [address] pH (U) 8.5 [pH] Invalid Interpretation Code 5.0-9.0 [facility] Comment on above: Performed By: #### 1 6983455 ####[facility] [address] [place] [address] Protein (U) [Mass/Vol] Negative Normal Negative [facility] Comment on above: Performed By: #### 1 2088019 ####[facility] [address] [place] 3[address] Specific gravity (U) [Rel density] 1.015 Invalid Interpretation Code 1.005-1.030 [facility] Comment on above: Performed By: #### 1 2447516 ####[facility] [address] [place], [place] [address] Type of Urine collection method Clean Catch Normal [facility] Comment on above: Performed By: #### 1 1406904 ####[place] [address] Urobilinogen Qn (U) 0.2 {Ivone'U}/dL Normal 0.0-1.0 [facility] Comment on above: Performed By: #### 1 8974976 ####[place] [address] WBC Auto Ql (U) Negative Normal Negative [facility] Comment on above: Performed By: #### 1 8535057 ####[facility] [address] [place] [address] WBC LM.HPF (Urine sed) [#/Area] 0-5 Normal 0-5 [facility] Comment on above: Performed By: #### 1 0807985 ####[place] [address] URINALYSISOrdered By: Felicity George on 07-31-2023 Bacteria [...] Interpretation Code Negative [facility] UA Auto SS [place].plasma/[place]. RBC (Bld) [Mass ratio] 0-3 /HPF Normal [...] [facility] UA Auto SS Urobilinogen Qn (U) 0.2126011 {Ivone'U}/dL Normal 0.0 - 1.0 EU/dL [facility] UA Auto SS WBC Auto Ql (U) Negative (07/31/23 4:30 PM) Normal Negative [facility] UA Auto SS WBC LM.HPF (Urine sed) [#/Area] 0-5 /HPF Normal 0-5/HPF [facility] UA Auto SS eGFRon 07-31-2023 eGFR 85 mL/min/1.73 m2 Normal >=59 [facility] Comment on above: Order Comment: Order added by Discern Expert. Performed By: #### 2 208742, 0083011, 4110195, 22834533, 23595667 #### [facility] Laboratory [address] [place] [address] ED NOTEon 06-23-2023 ED NOTE HNO ID: [id number] Author: DENNIS CAMARGO RN Service: ? Author Type: Registered Nurse Type: ED Notes Filed: 06/22/2023 22:17 Note Text: Patient given verbal and written D/C instructions. Medications and follow up care discussed. Instructed to return to ED if conditions and symptoms persist or worsen. All questions addressed and answered pt verbalized understanding. Pt discharged to [facility], NAD noted. Normal [facility] HAV IgM Ser Qlon 06-23-2023 HAV IgM Ql (S) Negative Normal Negative [facility] Comment on above: Order Comment: Speci men Type: BLOOD SPECIMENOrdering Facility: [facility] Address: [address] [place] [address] Result Comment: No e vidence of recent infection with Hepatitis A virus. Performed By: #### 3 1204-1, 5195-3, 39864-1 ####[facility] LABCLIA [id number] [place] [address] [place] HBV core IgM Ser Qlon 2023 HBV core IgM Ql (S) Negative Normal Negative [facility] Comment on above: Order Comment: [facility]i [facility] Type: BLOOD SPECIMENOrdering Facility: [facility] Address: [address] [place] [address] Result Comment: No e vidence of recent infection with Hepatitis B virus. Should recent infection be suspected, repeat testing may be considered 3-4 weeks after this draw. Performed By: #### 3 1204-1, 5195-3, 91184-0 ####[facility] LABCLIA [id number] [place] [address] [place] HBV surface Ag Ser Qlon 06-13 HBV surface Ag Ql (S) Negative Normal Negative [facility] Comment on above: Order Comment: Speci [facility] Type: BLOOD SPECIMENOrdering Facility: [facility] Address: [address] [place] [address] Performed By: #### 3 1204-1, 5195-3, 88479-0 ####[facility] LABCLIA [id number] [place] [id number] [place] HCV RNA SerPl SENAIT+probe-aCnc on 06-23-2023 HCV RNA SENAIT+probe Qn Not detected Normal HCV RNA not detected by PCR. [facility] Comment on above: Order Comment: Speci men Type: BLOOD SPECIMEN [facility] Address: [address] [place] [address] Performed By: #### 1 1011-4 #### [facility] LAB CLIA [id number] [facility] [address] [place] ALLIED HEALTHon 06-22-2023 ALLIED HEALTH HNO ID: [id number] Author: SELENA AMADOR RT(R) Service: Radiology Author [...] Completed: Abdomen/Pelvis SIGNATURE: RT Jose(R) PATIENT NAME: Antonia Noyola DATE: June 22, 2023 TIME: 7:46 PM [facility] HNO ID: [id number] Author: DELLA BEST RDMS, RVT Service: Radiology Author Type: Staff Anesthetist Type: Allied Health Filed: 06/22/2023 18:55 Note Text: Radiology Service Progress Note PATIENT NAME: Antonia Noyola DATE OF SERVICE: June 22, 2023 [...] RDMS, RVT June 22, 2023 6:55 PM [facility] CBC W Auto Differential pane l (Bld)on 06-22-2023 Basophils (Bld) [#/Vol] 0.03 10*3/uL Normal <0.11 [facility] Comment on above: Order Comment: Speci men Type: BLOOD SPECIMENOrdering Facility: [facility] Address: [address] [place] [address] Performed By: #### 5 7021-8 ####[facility] [id number] [place] [address] [place] Basophils/100 WBC (Bld) 0.6 % Normal [facility] Comment on above: Order Comment: Speci men Type: BLOOD SPECIMENOrdering Facility: [facility] Address: [address] [place] [address] Performed By: #### 5 7021-8 ####[facility]ORYCLIA [id number] [address] [place] [address] [place] Differential cell count method Nom (Bld) Auto Normal [facility] Comment on above: Order Comment: Speci men Type: BLOOD SPECIMENOrdering Facility: [facility] Address: [address] [place] [address] Performed By: #### 5 7021-8 ####[facility]ORYCLIA [id number] [address] [place] [address] [place] Eosinophils (Bld) [#/Vol] 0.03 10*3/uL Normal <0.46 [facility] Comment on above: Order Comment: Speci men Type: BLOOD SPECIMENOrdering Facility: [facility] Address: [address] [place] [address] Performed By: #### 5 7021-8 ####[facility]ORYCLIA [id number] [address] [place] [address] [place] Eosinophils/100 WBC (Bld) 0.6 % [facility] Comment on above: Order Comment: Speci men Type: BLOOD SPECIMENOrdering Facility: [facility] Address: [address] [place] [address] Performed By: #### 5 7021-8 ####[facility]ORYCLIA [id number] [address] [place] Erythrocyte distribution width (RBC) [Ratio] 16.5 % High 11.5-15.0 [facility] Comment on above: Order Comment: Speci men Type: BLOOD SPECIMENOrdering Facility: [facility] Address: [address] [place] [address] Performed By: #### 5 7021-8 ####[facility]ORYCLIA [id number] [address] [place] [address] [place] Hematocrit (Bld) [Volume fraction] 37.7 % Normal 36.0-46.0 [facility] Comment on above: Order Comment: Speci men Type: BLOOD SPECIMENOrdering Facility: [facility] Address: [address] [place] [address] Performed By: #### 5 7021-8 ####[facility]ORYCLIA [id number] [place] [address] [place] Hemoglobin (Bld) [Mass/Vol] 11.7 g/dL Normal 11.5-15.5 [facility] Comment on above: Order Comment: Speci men Type: BLOOD SPECIMENOrdering Facility: [facility] Address: [address] [place] [address] Performed By: #### 5 7021-8 ####[facility]ORYCLIA [id number] [place] [address] [place] Immature granulocytes (Bld) [#/Vol] 10*3/uL Normal <0.10 [facility] Comment on above: Order Comment: Speci men Type: BLOOD SPECIMENOrdering Facility: [facility] Address: [address] [place] [address] Performed By: #### 5 7021-8 ####[facility]ORYCLIA [id number] [place] [address] [place] Immature granulocytes/100 WBC (Bld) 0.4 % Normal [facility] Comment on above: Order Comment: Speci men Type: BLOOD SPECIMENOrdering Facility: [facility] Address: [address] [place] [address] Performed By: #### 5 7021-8 ####[facility]ORYCLIA [id number] [place] [address] [place] Lymphocytes (Bld) [#/Vol] 1.87 10*3/uL Normal 1.00-4.00 [facility] Comment on above: Order Comment: Speci men Type: BLOOD SPECIMENOrdering Facility: [facility] Address: [address] [place] [address] Performed By: #### 5 7021-8 ####[facility]ORYCLIA [id number] [address] [place] [address] [place] Lymphocytes/100 WBC (Bld) 34.4 % Normal [facility] Comment on above: Order Comment: Speci men Type: BLOOD SPECIMENOrdering Facility: [facility] Address: [address] [place] [address] Performed By: #### 5 7021-8 ####[facility]ORYCLIA [id number] [place] [address] [place] MCH (RBC) [Entitic mass] 24.5 pg Low 26.0-34.0 [facility] Comment on above: Order Comment: Speci men Type: BLOOD SPECIMENOrdering Facility: [facility] Address: [address] [place] [address] Performed By: #### 5 7021-8 ####[facility]ORYCLIA [id number] [place] [address] [place] MCHC (RBC) [Mass/Vol] 31.0 g/dL Normal 30.5-36.0 [facility] Comment on above: Order Comment: Speci men Type: BLOOD SPECIMENOrdering Facility: [facility] Address: [address] [place] [address] Performed By: #### 5 7021-8 ####[facility]ORYCLIA [id number] [address] [place] MCV (RBC) [Entitic vol] 79.0 fL Low 80.0-100.0 L [facility] Comment on above: Order Comment: Speci men Type: BLOOD SPECIMENOrdering Facility: [facility] Address: [address] [place] [address] Performed By: #### 5 7021-8 ####[facility]ORYCLIA [id number] [address] [place] Monocytes (Bld) [#/Vol] 0.25 10*3/uL Normal <0.87 [facility] Comment on above: Order Comment: Speci men Type: BLOOD SPECIMENOrdering Facility: [facility] Address: [address] [place] [address] Performed By: #### 5 7021-8 ####[facility]ORYCLIA [id number] [address] [place], [place] [address] [place] Monocytes/100 WBC (Bld) 4.6 % Normal [facility] Comment on above: Order Comment: Speci men Type: BLOOD SPECIMENOrdering Facility: [facility] Address: [address] [place] [address] Performed By: #### 5 7021-8 ####[facility]ORYCLIA [id number] [place] [address] [place] Neutrophils (Bld) [#/Vol] 3.23 10*3/uL Normal 1.45-7.50 [facility] Comment on above: Order Comment: Speci men Type: BLOOD SPECIMENOrdering Facility: [facility] Address: [address] [place] [address] Performed By: #### 5 7021-8 ####[facility]ORYCLIA [id number] [address] [place] Neutrophils/100 WBC (Bld) 59.4 % Normal [facility] Comment on above: Order Comment: Speci men Type: BLOOD SPECIMENOrdering Facility: [facility] Address: [address] [place] [address] Performed By: #### 5 7021-8 ####[facility]ORATORYCLIA [id number] [place] [id number] [place] Nucleated RBC (Bld) [#/Vol] 10*3/uL Normal <0.01 [facility] Comment on above: Order Comment: Speci men Type: BLOOD SPECIMENOrdering Facility: [facility] Address: [address] [place] [address] Performed By: #### 5 7021-8 ####[facility]ORYCLIA [id number] [address] [place] Nucleated RBC/100 WBC (Bld) [Ratio] 0.0 /100 WBC Normal [facility] Comment on above: Order Comment: Speci men Type: BLOOD SPECIMENOrdering Facility: [facility] Address: [address] [place], [place] [address] [address] Performed By: #### 5 7021-8 ####[facility]ORYCLIA [id number] [address] [place], [place] [address] [place] Platelet mean volume (Bld) [Entitic vol] 9.4 fL Normal 9.0-12.7 [facility] Comment on above: Order Comment: Speci men Type: BLOOD SPECIMENOrdering Facility: [facility] Address: [address] [facility] [place] [address] Performed By: #### 5 7021-8 ####[facility]ORYCLIA [id number] [address] [place], [place] [address] [place] Platelets (Bld) [#/Vol] 486 10*3/uL High 150-400 [facility] Comment on above: Order Comment: Speci men Type: BLOOD SPECIMENOrdering Facility: [facility] Address: [address] [place] [address] Performed By: #### 5 7021-8 ####[facility]ORYCLIA [id number] [address] [place] [address] [place] RBC (Bld) [#/Vol] 4.77 10*6/uL Normal 3.90-5.20 [facility] Comment on above: Order Comment: Speci men Type: BLOOD SPECIMENOrdering Facility: [facility] Address: [address] [place] [address] Performed By: #### 5 7021-8 ####[facility]ORYCLIA [id number] [address] [place], [place] [address] [place] WBC (Bld) [#/Vol] 5.43 10*3/uL Normal 3.70-11.00 [facility] Comment on above: Order Comment: Speci men Type: BLOOD SPECIMENOrdering Facility: [facility] Address: [address] [place] [address] Performed By: #### 5 7021-8 ####[facility]ORYCLIA [id number] [address] [place], [place] [address] [place] CT ABD/PEL W [...] Lymph nodes: No abdominal or pelvic lymphadenopathy. Mesentery/Peritoneum: No ascites or mass. Retroperitoneum: No mass. Vasculature: Unremarkable Pelvis: No mass, ascites or fluid collection. Bones/Soft Tissues: No significant finding. Lower thorax: Unremarkable. Driving Instructor (topogram) images: Unremarkable. IMPRESSION: No acute intra-abdominal or pelvic process identified. Intelligence Operations: ANTONIO Transcribe Date/Time: Jun 22 2023 8:25P Dictated by : CHAD SCHILLING MD This examination was interpreted and the report reviewed and electronically signed by: CHAD SCHILLING MD on Jun 22 2023 8:29PM EST [id number] Normal [facility] Comprehensive metabolic 2000 panelon 06-22-2023 Albumin [Mass/Vol] 4.8 g/dL Normal 3.9-4.[address] [facility] Comment on above: Order Comment: Speci men Type: BLOOD SPECIMENOrdering Facility: [facility] Address: [address] [place] [address] Performed By: #### 2 4323-8, 3040-3, 83203-0 ####[facility]ORYCLIA [id number] [address] [place], [place] [address] [place] ALP [Catalytic activity/Vol] 108 U/L Normal 34-123 [facility] Comment on above: Order Comment: Speci men Type: BLOOD SPECIMENOrdering Facility: [facility] Address: [address] [place] [address] Performed By: #### 2 4323-8, 3040-3, ####[facility]ORYCLIA [id number] [address] [place], [place] [address] [place] ALT [Catalytic activity/Vol] 63 U/L High 7-38 [facility] Comment on above: Order Comment: Speci men Type: BLOOD SPECIMENOrdering Facility: [facility] Address: [address] [place] [address] Performed By: #### 2 4323-8, 3039-3, ####[facility]ORYCLIA [id number] [place] [id number] [place] Anion gap [Moles/Vol] 13 mmol/L Normal 9-18 [facility] Comment on above: Order Comment: Speci men Type: BLOOD SPECIMENOrdering Facility: [facility] Address: [address] [place] [address] Performed By: #### 2 4323-8, 3039-3, ####[facility]ORYCLIA [id number] [place] [id number] [place] AST [Catalytic activity/Vol] 109 U/L High 13-35 [facility] Comment on above: Order Comment: Speci men Type: BLOOD SPECIMENOrdering Facility: [facility] Address: [address] [place] [address] Performed By: #### 2 4323-8, 0-3, ####[facility]ORYCLIA [id number] [place] [id number] [place] Bilirubin [Mass/Vol] 0.4 mg/dL Normal 0.2-1.3 [facility] Comment on above: Order Comment: Speci men Type: BLOOD SPECIMENOrdering Facility: [facility] Address: [address] [place] [address] Performed By: #### 2 4323-8, 3040-3, 65659-3 ####[facility]ORYCLIA [id number] [place] [id number] [place] Calcium [Mass/Vol] 9.6 mg/dL Normal 8.5-10.[address] [facility] Comment on above: Order Comment: Speci men Type: BLOOD SPECIMENOrdering Facility: [facility] Address: [address] [place] [address] Performed By: #### 2 4323-8, 3039-3, ####[facility] LABORATORYCLIA [id number] [place] [id number] [place] Chloride [Moles/Vol] 102 mmol/L Normal 97-105 [facility] Comment on above: Order Comment: Speci men Type: BLOOD SPECIMENOrdering Facility: [facility] Address: [address] [place] [address] Performed By: #### 2 4323-8, 3, ####[facility] LABORATORYCLIA [id number] [place] [id number] [place] CO2 [Moles/Vol] 23 mmol/L Normal 22-30 [facility] Comment on above: Order Comment: Speci men Type: BLOOD SPECIMENOrdering Facility: [facility] Address: [address] [place] [address] Performed By: #### 2 4323-8, 3, ####[facility] LABORATORYCLIA [id number] [place] [id number] [place] Creatinine [Mass/Vol] 0.64 mg/dL Normal 0.58-0.96 [facility] Comment on above: Order Comment: Speci men Type: BLOOD SPECIMENOrdering Facility: [facility] Address: [address] [place] [address] Performed By: #### 2 4323-8, 0-3, ####[facility] LABORATORYCLIA [id number] [place] [address] [place] Creatinine and Glomerular filtration rate.predicted panel (S/P/Bld) 118 mL/min/1.73m??? Normal >=60 [facility] Comment on above: Order Comment: Samiatigre conway Type: BLOOD SPECIMENOrdering Facility: [facility] Address: [address] [place] [address] Result Comment: Shelley mated Glomerular Filtration Rate [...] GFR. Performed By: #### 2 4323-8, 3040-3, ####[facility] LABORATORYCLIA [id number] [place] [id number] [place] Glucose [Mass/Vol] 102 mg/dL High 74-[address] [facility] Comment on above: Order Comment: Roselyn conway Type: BLOOD SPECIMENOrdering Facility: [facility] Address: [address] [place] [address] Result Comment: The [place] Diabetes Association (ADA) provides guidance for cutoff [...] Standards of Medical Care in Diabetes 2016, [place] [employer]. Diabetes Care. 2016.39(Suppl 1). Performed By: #### 2 4323-8, 3040-3, ####[facility] LABORATORYCLIA [id number] [place] [id number] [place] Potassium [Moles/Vol] 3.8 mmol/L Normal 3.7-5.1 [facility] Comment on above: Order Comment: Speci men Type: BLOOD SPECIMENOrdering Facility: [facility] Address: [place] [address] Performed By: #### 2 4323-8, 0-3, ####[facility] LABORATORYCLIA [id number] [address] [place], [place] [id number] [place] Protein [Mass/Vol] 8.2 g/dL High 6.3-8.[address] [facility] Comment on above: Order Comment: Speci men Type: BLOOD SPECIMENOrdering Facility: [facility] Address: [place] [address] Performed By: #### 2 4323-8, 3039-3, ####[facility] LABORATORYCLIA [id number] [address] STATES [facility] Sodium [Moles/Vol] 138 mmol/L Normal 136-[address] [facility] Comment on above: Order Comment: Speci men Type: BLOOD SPECIMENOrdering Facility: [facility] Address: [place] [address] Performed By: #### 2 4323-8, 3, ####[facility] LABORATORYCLIA [id number] [place] [id number] [place] Urea nitrogen [Mass/Vol] 8 mg/dL Normal 7-21 [facility] Comment on above: Order Comment: Speci men Type: BLOOD SPECIMENOrdering Facility: [facility] Address: [place] [address] Performed By: #### 2 4323-8, 0-3, ####[facility] LABORATORYCLIA [id number] [place] [id number] [place] ECG COMPLETEon 06-22-2023 ECG COMPLETE Ventricular Rate : 1 05 BPM Atrial Rate : 103 BPM P-R Interval : 152 ms QRS Duration : 77 ms Q-T Interval : 324 ms QTC Calculation(Bazett) : 429 ms Calculated P Wh[place] : 42 degrees Calculated R [place] : 56 degrees Calculated T [place] : 49 degrees Sinus tachycardia Low voltage, precordial leads Anteroseptal infarct, old Abnormal ECG no stemi 181 Confirmed by MD SEN BRENT ([id number]), international editorial producer STEPHENIE ERIC ([id number]) on 06/23/2023 12:09:36 PM NAME : ANTONIA NOYOLA PID : [id number] : 1985 Gender : Female Race : ORD : [id number] Procedure Date : Jun 22 2023 18:10:13 Edit Date : Jun 23 2023 12:09:40 Diagnosis: Sinus tachycardia Low voltage, precordial leads Anteroseptal infarct, old Abnormal ECG no stemi 1814 Confirmed by MD SEN BRENT ([id number]), international editorial producer STEPHENIE ERIC (1940) on 06/23/2023 12:09:36 PM Test Reason : Tachycardia Location : 502 : [facility] ED Overread By : MD SEN BRENT Edited By : STEPHENIE ERIC Referred By : , Acquired by : DAVID [facility] ED NOTEon 06-22-2023 ED NOTE HNO ID: [id number] Author: DENNIS CAMARGO RN Service: ? Author Type: Registered Nurse Type: ED Notes Filed: 06/22/2023 21:56 Note Text: Assumed care of pt at this time and received report from previous RN. [facility] ED NOTE HNO ID: [id number] Author: MATILDE DAVIS RN Service: Nursing Author Type: Registered Nurse Type: ED Notes Filed: 06/22/2023 17:38 Note Text: Pt presents with LLQ pain that radiates to back that began this morning but worsened one hour prior to arrival. Denies urinary complaints. [facility] ED PROV NOTEon 06-22-2023 ED PROV NOTE HNO ID: [id number] Author: EVGENY SEN MD Service: Emergency Medicine Author Type: Physician Type: ED Provider Notes Filed: 06/22/2023 21:59 Note Text: ED Provider Note Patient Name: Antonia Noyola : 1985 SERVICE DATE: 06/22/23 History [...] with some relief. History provided by: Patient admissions evaluator used: No PAST MEDICAL HISTORY Diagnosis Date [...] Negative. Musculoskeletal: Negative. Skin: Negative. Neurological: Negative. Psychiatric/Behavioral : Negative. All other systems reviewed and are [...] Ref Range (more content not included)... Normal [facility] ED Triage Noteon 06-22-2023 ED Triage Note HNO ID: [id number] Author: TABBY LUCIANO PA-C Service: ? Author Type: Physician Carton Marker Machine Type: ED Triage Notes Filed: 06/22/2023 17:43 Note Text: ED INTAKE NOTE Patient Name: Antonia Noyola Service Date: 06/22/23 BRIEF HPI: 38 [...] treating team. SIGNATURE: Tabby Luciano PA-C Normal [facility] HCG Preg Ur Qlon 06-22-2023 HCG ( test) Ql (U) Negative Normal Negative [facility] Comment on above: Order Comment: Speci men Type: URINE SPECIMENOrdering Facility: [facility] Address: [address] [place] [address] Result Comment: This test is intended to aid in the early detection of . Very dilute urine samples, as indicated by a low specific gravity, may not contain sales representative facility services levels of hCG. This test detects intact [...] for . Performed By: #### 2 106-3 ####[facility] LABORATORYIA [id number] [place] [id number] [place] Lipase SerPl-cCncon 06-22-19 24 Lipase [Catalytic activity/Vol] 34 U/L Normal 16-61 [facility] Comment on above: Order Comment: Speci men Type: BLOOD SPECIMENOrdering Facility: [facility] Address: [address] [place] [address] Performed By: #### 2 4323-8, 3040-3, 91777-3 ####[facility] HOSPITALIA [id number] [place] [id number] [place] Magnesium SerPl-mCncon 06-22 Magnesium [Mass/Vol] 2.2 mg/dL Normal 1.7-2.3 [facility] Comment on above: Order Comment: Speci men Type: BLOOD SPECIMENOrdering Facility: [facility] Address: [address] [place] [address] Performed By: #### 2 4323-8, 3040-3, 65795-6 ####[facility] [place] [place] [id number] [place] [id number] [place] US DOPPLER COMPLETEon [...] Normal sonographic appearance of the female pelvis. Intelligence Operations: ANTONIO Transcribe Date/Time: Jun 22 2023 7:44P Dictated by : Vasu BURNS MD This examination was interpreted and the report reviewed and electronically signed by: Vasu BURNS MD on Jun 22 2023 7:48PM EST [id number] [facility] FEMALE PELVIS TRANSABD LT Don 06-22-2023 [...] Normal sonographic appearance of the female pelvis. Intelligence Operations: [facility] Transcribe Date/Time: Jun 22 2023 7:44P Dictated by : Vasu BURNS MD This examination was interpreted and the report reviewed and electronically signed by: Vasu BURNS MD on Jun 22 2023 7:48PM EST [id number] [facility] US FEMALE PELVIS TRANSVAGon 06-22-2023 FEMALE PELVIS [...] and stored in a permanent archive. MQ: P_2021 COMPARISON: None RESULT: Uterus: -Size: 8.1 x [...] Normal sonographic appearance of the female pelvis. Intelligence Operations: [facility] Transcribe Date/Time: Jun 22 2023 7:44P Dictated by : Vasu BURNS MD This examination was interpreted and the report reviewed and electronically signed by: Vasu BURNS MD on Jun 22 2023 7:48PM EST [id number] [facility] Urinalysis complete panel (U )on 06-22-2023 Bacteria LM.HPF (Urine sed) [#/Area] Few Abnormal None Seen [facility] Comment on above: Order Comment: Speci men Type: URINE SPECIMENOrdering Facility: [facility] Address: [address] [place], [place] [address] Performed By: #### 2 4356-8 ####[facility] LABORATORYCLIA [id number] [address] [place], [place] [address] [place] Bilirubin Ql (U) Negative Normal Negative [facility] Comment on above: Order Comment: Speci men Type: URINE SPECIMENOrdering Facility: [facility] Address: [address] [place] [address] Performed By: #### 2 4356-8 ####[facility] LABORATORYCLIA [id number] [address] [place] Clarity (Unsp spec) Clear Normal Clear [facility] Comment on above: Order Comment: Speci men Type: URINE SPECIMENOrdering Facility: [facility] Address: [address] [place] [address] Performed By: #### 2 4356-8 ####[facility] LABORATORYCLIA [id number] [place] [address] [place] Color (U) Yellow Normal Yellow [facility] Comment on above: Order Comment: Speci men Type: URINE SPECIMENOrdering Facility: [facility] Address: [address] [place] [address] Performed By: #### 2 4356-8 ####[facility] LABORATORYCLIA [id number] [address] [place] Epithelial cells LM.HPF (Urine sed) [#/Area] Few Normal [facility] Comment on above: Order Comment: Speci men Type: URINE SPECIMENOrdering Facility: [facility] Address: [address] [place] [address] Performed By: #### 2 4356-8 ####[facility] LABORATORYCLIA [id number] [place] [id number] [place] Glucose Test strip (U) [Mass/Vol] Negative Normal Negative [facility] Comment on above: Order Comment: Speci men Type: URINE SPECIMENOrdering Facility: [facility] Address: [address] [place] [address] Performed By: #### 2 4356-8 ####[facility] LABORATORYCLIA [id number] [address] [place] [address] [place] Hemoglobin Ql (U) Negative Normal Negative [facility] Comment on above: Order Comment: Speci men Type: URINE SPECIMENOrdering Facility: [facility] Address: [address] [place] [address] Performed By: #### 2 4356-8 ####[facility] LABORATORYCLIA [id number] [address] [place] [address] [place] Ketones Ql (U) Trace Abnormal Negative [facility] Comment on above: Order Comment: Speci men Type: URINE SPECIMENOrdering Facility: [facility] Address: [address] [place] [address] Performed By: #### 2 4356-8 ####[facility] LABORATORYCLIA [id number] [address] [place] Leukocyte esterase Test strip Ql (U) Negative Normal Negative [facility] Comment on above: Order Comment: Speci men Type: URINE SPECIMENOrdering Facility: [facility] Address: [address] [place] [address] Performed By: #### 2 4356-8 ####[facility] LABORATORYCLIA [id number] [address] [place] Nitrite Ql (U) Negative Normal Negative [facility] Comment on above: Order Comment: Speci men Type: URINE SPECIMENOrdering Facility: [facility] Address: [address] [place] [address] Performed By: #### 2 4356-8 ####[facility] LABORATORYCLIA [id number] [address] [place] [address] [place] pH (U) 6.5 [pH] Normal 5.0-8.0 [facility] Comment on above: Order Comment: Speci men Type: URINE SPECIMENOrdering Facility: [facility] Address: [address] [place] [address] Performed By: #### 2 4356-8 ####[facility] LABORATORYCLIA [id number] [address] [place] [address] [place] Protein (U) [Mass/Vol] Negative Normal Negative [facility] Comment on above: Order Comment: Speci men Type: URINE SPECIMENOrdering Facility: [facility] Address: [address] [place] [address] Performed By: #### 2 4356-8 ####[facility] LABORATORYCLIA [id number] [address] [place] [address] [place] RBC LM.HPF (Urine sed) [#/Area] 0-3 /HPF Normal 0-3 /HPF [facility] Comment on above: Order Comment: Speci men Type: URINE SPECIMENOrdering Facility: [facility] Address: [address] [place] [address] Performed By: #### 2 4356-8 ####[facility] LABORATORYCLIA [id number] [address] [place] Specific gravity (U) [Rel density] 1.020 Normal 1.005-1.030 [facility] Comment on above: Order Comment: Speci men Type: URINE SPECIMENOrdering Facility: [facility] Address: [address] [place] [address] Performed By: #### 2 4356-8 ####[facility] LABORATORYCLIA [id number] [address] Urobilinogen Ql (U) 1.0 EU/dL Normal 0.2-1.0 EU/dL [facility] Comment on above: Order Comment: Speci men Type: URINE SPECIMENOrdering Facility: [facility] Address: [address] [place] [address] Performed By: #### 2 4356-8 ####[facility] LABORATORYCLIA [id number] [address] [place] WBC LM.HPF (Urine sed) [#/Area] 0-5 /HPF Normal 0-5 /HPF [facility] Comment on above: Order Comment: Speci men Type: URINE SPECIMENOrdering Facility: [facility] Address: [address] [place] [address] Performed By: #### 2 4356-8 ####[facility] LABORATORYCLIA [id number] [place] [address] [facility] Basic Metabolic Profon 05-30 Anion gap [Moles/Vol] 12 mmol/L Normal 9-17 [facility] Comment on above: Performed By: #### C DP, HCG, BMP, LIP, LIVP #### [facility] [address] [place], [place] [id number] Breaker Tender: Jennifer Freire MD BUN/CRE Ratio 7 Low 9-20 [facility] Comment on above: Performed By: #### C DP, HCG, BMP, LIP, LIVP #### [facility] [address] [place], [place] [id number] Breaker Tender: Jennifer Freire MD Calcium [Mass/Vol] 9.8 mg/dL Normal 8.6-10.4 [facility] Comment on above: Performed By: #### C DP, HCG, BMP, LIP, LIVP #### [facility] [address] [place], [place] [id number] Breaker Tender: Jennifer Freire MD Chloride [Moles/Vol] 99 mmol/L Normal 98-107 [facility] Comment on above: Performed By: #### C DP, HCG, BMP, LIP, LIVP #### [facility] [address] [place] [address] Breaker Tender: Jennifer Freire MD CO2 [Moles/Vol] 24 mmol/L Normal 20-31 [facility] Comment on above: Performed By: #### C DP, HCG, BMP, LIP, LIVP #### [facility] [address] [place], [place] [id number] Breaker Tender: Jennifer Freire MD Creatinine [Mass/Vol] 0.7 mg/dL Normal 0.5-0.9 [facility] Comment on above: Performed By: #### C DP, HCG, BMP, LIP, LIVP #### [facility] [address] [place] [id number] Breaker Tender: Jennifer Freire MD GFR/1.73 sq M.predicted among non-blacks MDRD (S/P/Bld) [Vol rate/Area] mL/min/{1.73_m2} Normal >60 [facility] Comment on above: Result Comment: These results [...] renal tubular secretion. Performed By: #### C DP, HCG, BMP, LIP, LIVP #### [facility] [address] [place] [id number] Breaker Tender: Jennifer Freire MD Glucose [Mass/Vol] 97 mg/dL Normal 70-99 [facility] Comment on above: Performed By: #### C DP, HCG, BMP, LIP, LIVP #### [facility] [address] [place] [id number] Breaker Tender: Jennifer Freire MD Potassium [Moles/Vol] 3.9 mmol/L Normal 3.7-5.3 [facility] Comment on above: Performed By: #### C DP, HCG, BMP, LIP, LIVP #### [facility] [address] [place] [id number] Breaker Tender: Jennifer Freire MD Sodium [Moles/Vol] 135 mmol/L Normal 135-144 [facility] Comment on above: Performed By: #### C DP, HCG, BMP, LIP, LIVP #### [facility] [address] [place] [id number] Breaker Tender: Jennifer Freire MD Urea nitrogen [Mass/Vol] 5 mg/dL Low 6-20 [facility] Comment on above: Performed By: #### C DP, HCG, BMP, LIP, LIVP #### [facility] [address] [place] [id number] Breaker Tender: Jennifer Freire MD CBC with Diffon 05-30-2023 Abs. Basophil 0.02 k/uL Normal 0.00-0.20 [facility] Comment on above: Performed By: #### C DP, HCG, BMP, LIP, LIVP #### [facility] [address] [place] [address] Breaker Tender: Jennifer Freire MD Abs.Imm.Granulocyte 0.00 k/uL Normal 0.00-0.30 [facility] Comment on above: Performed By: #### C DP, HCG, BMP, LIP, LIVP #### [facility] [address] [place] [address] Breaker Tender: Jennifer Freire MD Abs.Neutrophil (Seg) 2.21 k/uL Low 2.5-7.0 [facility] Comment on above: Performed By: #### C DP, HCG, BMP, LIP, LIVP #### [facility] [address] [place] [address] Breaker Tender: Jennifer Freire MD Basophils/100 WBC (Bld) 0 % Normal 0-2 [facility] Comment on above: Performed By: #### C DP, HCG, BMP, LIP, LIVP #### [facility] [address] [place] [address] Breaker Tender: Jennifer Freire MD Eosinophils (Bld) [#/Vol] 0.05 10*3/uL Normal 0.00-0.40 [facility] Comment on above: Performed By: #### C DP, HCG, BMP, LIP, LIVP #### [facility] [address] [place] [address] Breaker Tender: Jennifer Freire MD Eosinophils/100 WBC (Bld) 1 % Normal 0-5 [facility] Comment on above: Performed By: #### C DP, HCG, BMP, LIP, LIVP #### [facility] [address] [place] [id number] Breaker Tender: Jennifer Freire MD Erythrocyte distribution width (RBC) [Ratio] 16.5 % High 12.1-15.2 [facility] Comment on above: Performed By: #### C DP, HCG, BMP, LIP, LIVP #### [facility] [address] [place] [id number] Breaker Tender: Jennifer Freire MD Hematocrit (Bld) [Volume fraction] 37.2 % Normal 36.0-46.0 [facility] Comment on above: Performed By: #### C DP, HCG, BMP, LIP, LIVP #### [facility] [address] [place] [address] Breaker Tender: Jennifer Freire MD Hemoglobin (Bld) [Mass/Vol] 11.7 g/dL Low 12.0-16.0 [facility] Comment on above: Performed By: #### C DP, HCG, BMP, LIP, LIVP #### [facility] [address] [place] [phone] Breaker Tender: Jennifer Freire MD Immature granulocytes/100 WBC (Bld) 0 % Normal 0-5 [facility] Comment on above: Performed By: #### C DP, HCG, BMP, LIP, LIVP #### [facility] [address] [place] [id number] Breaker Tender: Jennifer Freire MD Lymphocytes (Bld) [#/Vol] 2.45 10*3/uL Normal 1.00-4.80 [facility] Comment on above: Performed By: #### C DP, HCG, BMP, LIP, LIVP #### [facility] [address] [place] [phone] Breaker Tender: Jennifer Freire MD Lymphocytes/100 WBC (Bld) 48 % High 15-40 [facility] Comment on above: Performed By: #### C DP, HCG, BMP, LIP, LIVP #### [facility] [address] [place] [address] Breaker Tender: Jennifer Freire MD MCH (RBC) [Entitic mass] 24.2 pg Low 26.0-34.0 [facility] Comment on above: Performed By: #### C DP, HCG, BMP, LIP, LIVP #### [facility] [address] [place] [address] Breaker Tender: Jennifer Freire MD MCHC (RBC) [Mass/Vol] 31.5 g/dL Normal 31.0-37.0 [facility] Comment on above: Performed By: #### C DP, HCG, BMP, LIP, LIVP #### [facility] [address] [place] [address] Breaker Tender: Jennifer Freire MD MCV (RBC) [Entitic vol] 76.9 fL Low 80.0-100.0 [facility] Comment on above: Performed By: #### C DP, HCG, BMP, LIP, LIVP #### [facility] [address] [place] [address] Breaker Tender: Jennifer Freire MD Monocytes (Bld) [#/Vol] 0.37 10*3/uL Normal 0.00-1.00 [facility] Comment on above: Performed By: #### C DP, HCG, BMP, LIP, LIVP #### [facility] [address] [place] [address] Breaker Tender: Jennifer Freire MD Monocytes/100 WBC (Bld) 7 % Normal 4-8 [facility] Comment on above: Performed By: #### C DP, HCG, BMP, LIP, LIVP #### [facility] [address] [place] [address] Breaker Tender: Jennifer Freire MD Neutrophil (Seg) 43 % Low 47-75 [facility] Comment on above: Performed By: #### C DP, HCG, BMP, LIP, LIVP #### [facility] [address] [place] [phone] Breaker Tender: Jennifer Freire MD Platelet mean volume (Bld) [Entitic vol] 8.7 fL Normal 6.0-12.0 [facility] Comment on above: Performed By: #### C DP, HCG, BMP, LIP, LIVP #### [facility] [address] [place] [address] Breaker Tender: Jennifer Freire MD Platelets (Bld) [#/Vol] 512 10*3/uL High 140-450 [facility] Comment on above: Performed By: #### C DP, HCG, BMP, LIP, LIVP #### [facility] [address] [place] [id number] Breaker Tender: Jennifer Freire MD RBC (Bld) [#/Vol] 4.84 10*6/uL Normal 4.00-5.20 [facility] Comment on above: Performed By: #### C DP, HCG, BMP, LIP, LIVP #### [facility] [address] [place] [phone] Breaker Tender: Jennifer Freire MD WBC (Bld) [#/Vol] 5.1 10*3/uL Normal 3.5-11.0 [facility] Comment on above: Performed By: #### C DP, HCG, BMP, LIP, LIVP #### [facility] [address] [place] [phone] Breaker Tender: Jennifer Freire MD CT ABDOMEN PELVIS W [...] Normal SPLEEN: Normal ADRENAL GLANDS: Normal BILIARY TREE/GALLBLADDER/PANCR EAS: Patient is post cholecystectomy. Surgical clips are [...] Marilyn Narvaez MD 05/30/[address] [facility] HCG Screen, Bloodon 05-30-20 HCG Screen, Blood Negative Normal NEG [facility] Comment on above: Result Comment: Spec imens with hCG levels near the threshold of the test (25 mIU/mL) may give a negative or indeterminate result. In such cases, another test should be performed with a new specimen in 48-72 hours. If early is suspected clinically in this setting, correlation with quantitative serum b-hCG level is suggested. [facility] has confirmed the use of plasma for this test. This has not been cleared or approved by the U.S. Food and Drug Administration. The FDA has determined that such clearance is not necessary. Performed By: #### C DP, HCG, BMP, LIP, LIVP #### [facility] [address] [place] [address] Breaker Tender: Jennifer Freire MD Lipaseon 05-30-2023 Lipase [Catalytic activity/Vol] 28 U/L Normal 13-60 [facility] Comment on above: Performed By: #### C DP, HCG, BMP, LIP, LIVP #### [facility] [address] [place] [address] Breaker Tender: Jennifer Freire MD Liver Profileon 12-18-2023 Albumin [Mass/Vol] 4.3 g/dL Normal 3.5-5.2 [facility] Comment on above: Performed By: #### C DP, HCG, BMP, LIP, LIVP #### [facility] [address] [place], [place] [id number] Breaker Tender: Jennifer Freire MD Alkaline Phos 86 U/L Normal 35-104 [facility] Comment on above: Performed By: #### C DP, HCG, BMP, LIP, LIVP #### [facility] [address] [place], [place] [id number] Breaker Tender: Jennifer Freire MD ALT [Catalytic activity/Vol] 14 U/L Normal 5-33 [facility] Comment on above: Performed By: #### C DP, HCG, BMP, LIP, LIVP #### [facility] [address] [place] [address] Breaker Tender: Jennifer Freire MD AST [Catalytic activity/Vol] 18 U/L Normal <32 [facility] Comment on above: Performed By: #### C DP, HCG, BMP, LIP, LIVP #### [facility] [address] [place], [place] [id number] Breaker Tender: Jennifer Freire MD Bilirubin [Mass/Vol] 0.5 mg/dL Normal 0.3-1.2 [facility] Comment on above: Performed By: #### C DP, HCG, BMP, LIP, LIVP #### [facility] [address] [place], [place] [id number] Breaker Tender: Jennifer Freire MD Bilirubin, Indirect Can not be calculated Normal 0.0-[address] [facility] Comment on above: Performed By: #### C DP, HCG, BMP, LIP, LIVP #### [facility] [address] [place], [place] [id number] Breaker Tender: Jennifer Freire MD Bilirubin.indirect [Mass/Vol] mg/dL Normal <0.3 [facility] Comment on above: Performed By: #### C DP, HCG, BMP, LIP, LIVP #### [facility] [address] [place], [place] [id number] Breaker Tender: Jennifer Freire MD Protein [Mass/Vol] 7.9 g/dL Normal 6.4-8.3 [facility] Comment on above: Performed By: #### C DP, HCG, BMP, LIP, LIVP #### [facility] [address] [place], [place] [id number] Breaker Tender: Jennifer Freire MD Urinalysis, Routineon 2022 Bilirubin, SemiQt,Ur Negative Normal NEG [facility] Comment on above: Performed By: #### U A #### [facility] [address] [place], [place] [id number] Breaker Tender: Jennifer Freire MD Blood, Urine Negative Normal NEG [facility] Comment on above: Performed By: #### U A #### [facility] [address] [place], [place] [id number] Breaker Tender: Jennifer Freire MD Clarity (U) Clear Normal CLEAR [facility] Comment on above: Performed By: #### U A #### [facility] [address] [place], [place] [address] Breaker Tender: Jennifer Freire MD Color (U) Yellow Normal YEL [facility] Comment on above: Performed By: #### U A #### [facility] [address] [place], [place] [id number] Breaker Tender: Jennifer Freire MD Comment Normal [facility] Comment on above: Performed By: #### U A #### [facility] [address] [place], [place] [id number] Breaker Tender: Jennifer Freire MD Glucose Ql (U) Negative Normal NEG [facility] Comment on above: Performed By: #### U A #### [facility] [address] [place] [address] Breaker Tender: Jennifer Freire MD Ketones Ql (U) Negative Normal NEG [facility] Comment on above: Performed By: #### U A #### [facility] [address] [place] [address] Breaker Tender: Jennifer Freire MD Leukocyte esterase Test strip Ql (U) Negative Normal NEG [facility] Comment on above: Performed By: #### U A #### [facility] [address] [place] [address] Breaker Tender: Jennifer Freire MD Nitrite,Ur Negative Normal NEG [facility] Comment on above: Performed By: #### U A #### [facility] [address] [place] [id number] Breaker Tender: Jennifer Freire MD PH,Ur 8.0 Normal 5.0-8.0 [facility] Comment on above: Performed By: #### U A #### [facility] [address] [place] [address] Breaker Tender: Jennifer Freire MD Protein Ql (U) Negative Normal NEG [facility] Comment on above: Performed By: #### U A #### [facility] [address] [place] [address] Breaker Tender: Jennifer Freire MD Spec. [place],Ur 1.010 Normal 1.005-1.030 [facility] Comment on above: Performed By: #### U A #### [facility] [address] [place] [address] Breaker Tender: Jennifer Freire MD Urobilinogen,Ur Normal Normal 0.0-1.0 [facility] Comment on above: Performed By: #### U A #### [facility] [address] [facility] [place] [address] Breaker Tender: Jennifer Freire MD Discharge Instructionson Discharge Instructions [id number] 0TIFF Normal [facility] ED Clinical Summaryon 2022 ED Clinical Summary [address] [address] ED Clinical Summary Person Information Name: [facility] Age: 38 Years : 1985 Sex: Female Language: Citizen Of [place] PCP: BETTIE MIRELES Marital Status: Visit Id: [...] 05/18/2023 00:57:00 ADDRESS: [address] [place] [id number] PHYS DOC NOTES: MEDICAL INFORMATION: Prescriptions Given: Medications to Continue with No Changes Other Medications alprazolam (alprazolam 0.25 mg Tab) budesonide-formoterol (Symbicort 80/4.5 inhalation aerosol with adapter) citalopram (citalopram 20 mg Tab) By Mouth every day. 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 We discussed return precautions. Patient was discharged stable condition. Shared decision making: As above Code status: N/A Assessment/Plan Bilateral ovarian cysts (N83.201: Unspecified ovarian cyst, right side) Unspecified ovarian cyst, left side (N83.202: Unspecified ovarian cyst, left side) Orders: acetaminophen-oxycodon e, 1 EA, Tab, Oral, Once, Stop date [...] prescription medications Follow-up With When Contact Information Rose Royal In 3 days 05/21/[address] [place] [address] Business (1) Additional Instructions: Patient Education Ovarian [...] (05/17/23 21:12 (more content not included)... Normal [facility] Comment on above: Result Comment: Elec tronically [...] Follow these instructions at home: ? Take mdsj-flh-ylugydm and prescription medicines only as told by [...] Reviewed: 11/06/2020 Elsevier Patient Education ? 2022 [employer] Normal [facility] ED Patient Summaryon 023 ED Patient Summary [address] [address] Patient Discharge Instructions Person Information Name: ANTONIA NOYOLA Age: 38 Years Arrival Date: 05/17/2023 20:20:39 Discharge Diagnosis: Bilateral ovarian cysts; Unspecified ovarian cyst, left side Primary Care Physician: BETTIE MIRELES Provider Information Primary Provider: Ritesh Heath DO Advanced Fire Protection Specialist:None The exam and treatment you received in the Emergency Department were for an urgent problem and are not intended as complete care. It is important that you follow up with a doctor, nurse practitioner, or physician?s personal injury legal assistant for ongoing care. If your symptoms become worse or you do not improve as expected and you are unable to reach your usual health care provider, you should return to the Emergency Department. We are available 24 hours a day. ANTONIA NOYOLA has been given the following list of patient education materials, prescriptions and follow-up instructions: Follow-up Instructions: With: Address: When: Rose Royal [address] [place] [address] Business (1) In 3 days 05/21/2023 In the event that this physician does not participate in your insurance network, please consult with your insurance company to find a nearby participating provider. Patient Education Materials: Ovarian Cyst A MESSAGE TO ALL PATIENTS REGARDING OPIOIDS PRESCRIPTION OPIOIDS: WHAT YOU NEED TO KNOW Prescription opioids can be used to help relieve jguhqfdf-db-htseov pain and are often prescribed following a [...] guidance from the Food and Drug Administration (www.fda.gov/Drugs/Res ourcesForYou). ? Visit www.cdc.gov/drugoverdo se to learn about the risks of opioids abuse and overdose. ? If you believe you may be struggling with addiction, tell your health career education teacher and ask for guidance or call [facility]?S National Helpline at 0-011-662-GILR. (more content not included)... Normal [facility] Pelvis Non-OB Completeon 05-18-2023 US Pelvis Non-OB [...] CARMELINA Technical Comments Transabdominal Ultrasound Performed Normal [facility] Auto Diffon 05-17-2023 Basophils/100 WBC (Bld) 0.4 % Normal 0.0-2.0 F [facility] Comment on above: Order Comment: Order Added by Discern Expert. Performed By: #### 1 9856918, 4671396, 3904310, 3990628, 1527325, 03606494, 9279996 ####[place] [address] [place] [address] Basophils/Leukocytes Auto (Bld) [Pure # fraction] 0.0 E9/L Normal 0.0-0.2 [facility] Comment on above: Order Comment: Order Added by Discern Expert. Performed By: #### 1 0215890, 7823792, 6957511, 8720302, 9954221, 38052248, 2808343 ####[address] [address] Eosinophils/100 WBC (Bld) 0.2 % Normal 0.0-8.0 [facility] Comment on above: Order Comment: Order Added by Discern Expert. Performed By: #### 1 8287038, 9747617, 8858301, 4841734, 1722525, 95381337, 0634191 ####[address] [place] [address] Eosinophils/Leukocytes Auto (Bld) [Pure # fraction] 0.0 E9/L Normal 0.0-0.5 [facility] Comment on above: Order Comment: Order Added by Discern Expert. Performed By: #### 1 7040757, 7264073, 8753179, 1455675, 2727107, 43871091, 8864774 ####[address] [place] [address] Lymphocytes/100 WBC (Bld) 33.4 % Normal 14.0-50.0 [facility] Comment on above: Order Comment: Order Added by Discern Expert. Performed By: #### 1 4433549, 8135543, 2790921, 0437642, 9527464, 84328754, 1676395 ####[address] [place] [address] Lymphocytes/Leukocytes Auto (Bld) [Pure # fraction] 2.8 E9/L Normal 1.0-4.0 [facility] Comment on above: Order Comment: Order Added by Discern Expert. Performed By: #### 1 3026054, 8388241, 2724952, 5751177, 4948380, 50238400, 0173305 ####[address] [address] Monocytes/100 WBC (Bld) 9.1 % Normal 4.0-14.0 [facility] Comment on above: Order Comment: Order Added by Discern Expert. Performed By: #### 1 1398665, 9634891, 5370342, 4587282, 1510547, 29767299, 1175635 ####[address] [address] Monocytes/Leukocytes Auto (Bld) [Pure # fraction] 0.8 E9/L Normal 0.2-1.0 [facility] Comment on above: Order Comment: Order Added by Discern Expert. Performed By: #### 1 4267891, 8706619, 4629383, 5005689, 5437356, 02525439, 8346213 ####[address] [address] Neutrophils/100 WBC (Bld) 56.9 % Normal 36.0-75.0 [facility] Comment on above: Order Comment: Order Added by Discern Expert. Performed By: #### 1 1448740, 8264456, 7681885, 2161418, 2216723, 21912091, 8896447 ####[address] [place] [address] Neutrophils/Leukocytes Auto (Bld) [Pure # fraction] 4.8 E9/L Normal 2.0-7.5 [facility] Comment on above: Order Comment: Order Added by Discern Expert. Performed By: #### 1 8933271, 1936050, 7624882, 3295054, 0342869, 69141174, 2125269 ####[facility] [address] [place] [address] BMPon 05-17-2023 Creatinine [Mass/Vol] 0.8 mg/dL Normal 0.5-1.3 [facility] Comment on above: Performed By: #### 1 6294783, 3281399, 3164013, 2897558, 9852953, 37949128, 6739950 ####[facility] [address] [place] [address] Urea nitrogen [Mass/Vol] 5 mg/dL Normal 5-21 [facility] Comment on above: Performed By: #### 1 6713879, 7940652, 1364293, 4029626, 9949372, 55708082, 1271883 ####[facility] [address] [place] [address] Urea nitrogen/Creatinine [Mass ratio] 6 No Units Low 10-20 [facility] Comment on above: Performed By: #### 1 3160399, 6853669, 2020192, 7209855, 4250588, 39368479, 3106220 ####[facility] [address] [place] [address] Anion gap [Moles/Vol] 11 mmol/L Normal 6-16 [facility] Comment on above: Performed By: #### 1 8069695, 3463286, 0705654, 2457999, 3520661, 56555506, 2582976 ####[facility] [address] [place] [address] Calcium [Mass/Vol] 9.3 mg/dL Normal 8.9-11.1 [facility] Comment on above: Performed By: #### 1 5440433, 7453936, 3829296, 3789013, 8091395, 67026998, 3015639 ####[facility] [address] [place] [address] Chloride [Moles/Vol] 109 mmol/L Normal 101-111 [facility] Comment on above: Performed By: #### 1 9151305, 6143207, 7962537, 6272031, 7546294, 04470498, 8742502 ####[facility] [address] [place] [address] CO2 [Moles/Vol] 23 mmol/L Normal 21-31 [facility] Comment on above: Performed By: #### 1 5389543, 2914864, 9723972, 0209242, 7387859, 64409040, 0712495 ####[facility] [address] [place] [address] Glucose [Mass/Vol] 104 mg/dL Normal 55-199 [facility] Comment on above: Result Comment: If t his glucose result represents a fasting glucose, interpretation should refer to the following reference range: 55-99 mg/dL Performed By: #### 1 6168715, 0235310, 5709330, 5547676, 8370627, 80588552, 4072923 ####[facility] [address] [place] [address] Potassium [Moles/Vol] 4.1 mmol/L Normal 3.5-5.3 [facility] Comment on above: Performed By: #### 1 6271840, 6676302, 1706912, 7888990, 9812877, 98792614, 6868830 ####[facility] [address] [place] [address] Sodium [Moles/Vol] 139 mmol/L Normal 135-145 [facility] Comment on above: Performed By: #### 1 1106757, 0363583, 7042520, 0655965, 3343284, 30903216, 0282823 ####[facility] [address] [place] [address] CBC w/ Auto Diffon 3 Erythrocyte distribution width (RBC) [Ratio] 18.7 % High 10.9-14.2 [facility] Comment on above: Performed By: #### 1 8882558, 9205809, 4288893, 1806051, 4982789, 77064420, 8905637 #### [facility] [address] [place] [address] Hematocrit (Bld) [Volume fraction] 37.4 % Normal 34.0-46.0 [facility] Comment on above: Performed By: #### 1 3722691, 8502082, 8534902, 5680666, 6906388, 77065625, 7492717 #### [facility] [address] [place] [address] Hemoglobin (Bld) [Mass/Vol] 11.7 g/dL Low 12.0-16.0 [facility] Comment on above: Performed By: #### 1 4595956, 6275943, 7261665, 8365013, 2279501, 67589202, 4465054 #### [facility] Laboratory [address] [place] [address] MCH (RBC) [Entitic mass] 24.4 pg Low 27.0-34.0 [facility] Comment on above: Performed By: #### 1 1696761, 7281883, 4382554, 9639272, 9045158, 13479979, 5678594 #### [facility] Laboratory [address] [place] [address] MCHC (RBC) [Mass/Vol] 31.2 g/dL Low 31.4-36.0 [facility] Comment on above: Performed By: #### 1 1680661, 3219209, 3405116, 3984571, 1074631, 70080091, 7977046 #### [facility] [address] [place] [address] MCV (RBC) [Entitic vol] 78.2 fL Low 80.0-100.0 F [facility] Comment on above: Performed By: #### 1 1698369, 8756268, 5946788, 0763138, 1015522, 23294885, 7698122 #### [facility] [address] [place] [address] Platelet mean volume (Bld) [Entitic vol] 7.8 fL Normal 6.4-10.8 [facility] Comment on above: Performed By: #### 1 1104859, 1092174, 8091284, 6682041, 8459922, 74729143, 9153216 #### [facility] [address] [place] [address] Platelets (Bld) [#/Vol] 469.0 E9/L Normal 150.0-500.0 [facility] Comment on above: Performed By: #### 1 5558470, 0914334, 4430190, 5719983, 8658670, 43019848, 7846910 #### [facility] [address] [place] [address] RBC (Bld) [#/Vol] 4.8 E12/L Normal 4.3-5.9 [facility] Comment on above: Performed By: #### 1 8286943, 7129500, 0001710, 4280629, 6171186, 35660847, 1867573 #### [facility] [address] [place] [address] WBC corrected for nucl RBC Auto (Bld) [#/Vol] 8.5 E9/L Normal 4.0-11.0 [facility] Comment on above: Performed By: #### 1 0927903, 4192548, 4966929, 2830753, 0238977, 69304606, 4909777 #### [facility] [address] [place] [address] Consent for Treatmenton Consent for Treatment [id number] 0TIFF Normal [facility] ED Note-Nursingon 05-17-2023 ED Note-Nursing Pt being transported to [place] at this time Normal [facility] Hep Func Panelon 05-17-2023 Albumin [Mass/Vol] 4.2 g/dL Normal 3.3-5.0 [facility] Comment on above: Performed By: #### 1 6938572, 4976672, 7025464, 0456348, 7677555, 31355125, 5341110 ####[facility] [address] [place] [address] Albumin/Globulin (S) [Mass conc ratio] 1.2 Normal 1.1-2.2 [facility] Comment on above: Performed By: #### 1 9786313, 0322519, 7087210, 8451394, 6697031, 79882396, 9018799 ####[address] [place] [address] ALP [Catalytic activity/Vol] 58 Int._Unit/L Normal 21-98 [facility] Comment on above: Performed By: #### 1 2405373, 1846952, 4519786, 2418108, 7870238, 99067607, 7919989 ####[address] [address] ALT No additional P-5'-P [Catalytic activity/Vol] 14 Int._Unit/L Normal 6-46 [facility] Comment on above: Performed By: #### 1 5676236, 9898972, 6058735, 4302404, 4639110, 63437944, 2370669 ####[address] [address] AST [Catalytic activity/Vol] 21 Int._Unit/L Normal 5-43 [facility] Comment on above: Performed By: #### 1 8940741, 4316297, 8609673, 5632730, 3953894, 66206547, 0346469 ####[address] [address] Bilirubin [Mass/Vol] 0.6 mg/dL Normal 0.0-1.1 [facility] Comment on above: Performed By: #### 1 7785912, 6738026, 9881258, 4823499, 2096495, 99384320, 4760698 ####[address] [place] [address] Bilirubin.direct [Mass/Vol] 0.1 mg/dL Normal 0.1-0.4 [facility] Comment on above: Performed By: #### 1 7802896, 2802460, 2479567, 7639438, 1236833, 41580593, 6152378 ####[facility] [address] [place] [address] Bilirubin.indirect [Mass or moles/Vol] 0.5 mg/dL Normal 0.1-0.9 [facility] Comment on above: Performed By: #### 1 9885547, 1012949, 6167423, 5064744, 2243147, 59056186, 4412093 ####[facility] [address] [place] [address] Globulin (S) [Mass/Vol] 3.6 g/dL Normal 1.4-4.0 F [facility] Comment on above: Performed By: #### 1 8536606, 2785627, 3958097, 7250705, 5288912, 15388063, 5469681 ####[facility] [address] [place] [address] Protein [Mass/Vol] 7.8 g/dL Normal 6.0-7.8 [facility] Comment on above: Performed By: #### 1 8763085, 3321685, 0935499, 7006484, 9381190, 92426621, 0358957 ####[facility] [address] [place] [address] Lipase Levelon 05-17-2023 Lipase [Catalytic activity/Vol] 57 U/L Normal 13-58 [facility] Comment on above: Performed By: #### 1 6310076, 1018662, 8090013, 7630422, 6461900, 99692142, 8292621 #### [facility] [address] [place] [address] Morphon 05-17-2023 Anisocytosis Ql (Bld) Present Normal [facility] Comment on above: Order Comment: Order Added by Discern Expert. Performed By: #### 1 1888133, 1919259, 5247255, 4848287, 2295482, 59371166, 1218193 #### [facility] [address] [place] [address] Hypochromia Auto Ql (Bld) Present Normal [facility] Comment on above: Order Comment: Order Added by Discern Expert. Performed By: #### 1 2006914, 0693898, 9953427, 8604053, 7637808, 49908355, 3942335 #### [facility] [address] [place] [address] Microcytes Ql (Bld) Present [facility] Comment on above: Order Comment: Order Added by Discern Expert. Performed By: #### 1 8470232, 1378460, 1201418, 7462329, 3399918, 49452070, 1406181 #### [facility] [address] [place] [address] Morphology Edson (Bld) [Interp] See Morphology Normal [facility] Comment on above: Order Comment: Order Added by Discern Expert. Performed By: #### 1 6752981, 1779377, 6894757, 6804894, 9494587, 75169190, 3362031 #### [facility] [address] [place] [address] Ovalocytes LM Ql (Bld) Present Normal [facility] Comment on above: Order Comment: Order Added by Discern Expert. Performed By: #### 1 7097596, 7732200, 9758504, 3317272, 9213926, 32807874, 4801791 #### [facility] [address] [place] [address] U BetaHcg Qualon 05-17-2023 HCG.beta subunit (U) [Moles/Vol] Negative Normal [facility] Comment on above: Performed By: #### 1 4936467, 20244488 ####[facility] [address] [place] [address] UA With Cult Reflexon 2022 Bacteria LM Ql (Urine sed) TRACE Normal Trace [facility] Comment on above: Performed By: #### 1 0228698, 56186556 ####[facility] [address] [place] [address] Bilirubin Ql (U) Negative Normal Negative [facility] Comment on above: Performed By: #### 1 9087776, 34505864 ####[facility] [id number] [place] [id number] Clarity (U) CLEAR Normal Clear [facility] Comment on above: Performed By: #### 1 [id number], [id number] ####[address] [address] Color (U) YELLOW Normal Yellow [facility] Comment on above: Performed By: #### 1 [id number], [id number] ####[address] [address] Epithelial cells.squamous LM.HPF (Urine sed) [#/Area] 3-4 Normal 0-2 [facility] Comment on above: Performed By: #### 1 [id number], [id number] ####[address] [address] Glucose Test strip (U) [Mass/Vol] Negative Normal Negative [facility] Comment on above: Performed By: #### 1 [id number], [id number] ####[address] [address] Hemoglobin Ql (U) Negative Normal Negative [facility] Comment on above: Performed By: #### 1 [id number], [id number] ####[address] [address] Ketones (U) [Mass/Vol] TRACE Invalid Interpretation Code Negative [facility] Comment on above: Performed By: #### 1 [id number], [id number] ####[address] [address] [place].plasma/[place]. RBC (Bld) [Mass ratio] 0-3 Normal 0-3 [facility] Comment on above: Performed By: #### 1 [id number], [id number] ####[address] [address] Mucus Ql (Urine sed) 2+ Normal Fish [facility] Comment on above: Performed By: #### 1 [id number], [id number] ####[address] [address] Nitrite Ql (U) Negative Normal Negative [facility] Comment on above: Performed By: #### 1 [id number], [id number] ####[address] [address] pH (U) 6.0 [pH] Invalid Interpretation Code 5.0-9.0 [facility] Comment on above: Performed By: #### 1 [id number], [id number] ####[place] [id number] Protein (U) [Mass/Vol] Negative Normal Negative [facility] Comment on above: Performed By: #### 1 [id number], [id number] ####[place] [address] Specific gravity (U) [Rel density] >=1.030 Invalid Interpretation Code 1.005-1.030 [facility] Comment on above: Performed By: #### 1 [id number], [id number] ####[place] [address] Type of Urine collection method Clean Catch Normal [facility] Comment on above: Performed By: #### 1 [id number], [id number] ####[address] [address] Urobilinogen Qn (U) 2.0 {Ivone'U}/dL Abnormal 0.0-1.0 [facility] Comment on above: Performed By: #### 1 [id number], [id number] ####[address] [address] WBC Auto Ql (U) Negative Normal Negative [facility] Comment on above: Performed By: #### 1 [id number], [id number] ####[address] [address] WBC LM.HPF (Urine sed) [#/Area] 0-5 Normal 0-5 [facility] Comment on above: Performed By: #### 1 [id number], [id number] ####[facility] [id number] [place] [address] eGFRon 05-17-2023 GFR/1.73 sq M.predicted among non-blacks MDRD (S/P/Bld) [Vol rate/Area] 98 mL/min/1.73 m2 Normal >=59 [facility] Comment on above: Order Comment: Order added by Discern Expert. Result Comment: Vehicle Upholsterer franklin kidney disease could be indicated at eGFR's of less than 60 mL/min/1.73m2. Kidney failure is indicated at less than 15 mL/min/1.73m2. Performed By: #### 1 [id number], [id number], [id number], [id number], [id number], [id number], [id number] ####[facility] [id number] [place] [address] Alanine aminotransferase [En zymatic activity/volume] in Serum or PlasmaOrdered By: Elier Jackson on 04-30-2023 ALT [Catalytic activity/Vol] 15 U/L Normal 7-52 [facility] Comment on above: Performed By: #### H CGQNT #### [facility] [address] [place] [id number] [place] Albumin [Mass/volume] in Ser um or Plasma by Bromocresol green (BCG) dye binding methoOrdered By: Elier Jackson on 04-30-2023 Albumin BCG dye [Mass/Vol] 4.3 g/dL 3.5-5.7 [facility] Alkaline phosphatase [Enzyma tic activity/volume] in Serum or PlasmaOrdered By: Elier Jackson on 04-30-2023 ALP [Catalytic activity/Vol] 68 U/L Normal 34-104 [facility] Comment on above: Performed By: #### H CGQNT #### [facility] [address] [place] [address] [place] Aspartate aminotransferase [ Enzymatic activity/volume] in Serum or PlasmaOrdered By: Elier Jackson on 04-30-2023 AST [Catalytic activity/Vol] 17 U/L Normal 13-39 [facility] Comment on above: Performed By: #### H CGQNT #### [address] Automated basophil %Ordered By: Elier Velásquezarleen on 04-30-2023 Basophils/100 WBC (Bld) 1.3 % Normal . [facility] Comment on above: Performed By: #### H CGQNT #### [address] Automated basophil countOrde red By: Elier Manuel on 04-30-2023 Basophils (Bld) [#/Vol] 0.0 10*3/uL Normal 0.0-0.2 [facility] Comment on above: Result Comment: PERF ORMED BY: [place] [address] PATHOLOGIST VARNISH BLENDER FARNAZ ZULETA M.D. Performed By: #### H CGQNT #### [address] Automated blood monocyte cou ntOrdered By: Elierjaqui Jackson on 04-30-2023 Monocytes (Bld) [#/Vol] 0.3 10*3/uL Normal 0.0-0.8 [facility] Comment on above: Performed By: #### H CGQNT #### [address] Automated eosinophil %Ordere d By: Elier Jackson on 04-30-2023 Eosinophils/100 WBC (Bld) 0.6 % Normal . [facility] Comment on above: Performed By: #### H CGQNT #### [facility] [address] [place] [address] Automated eosinophil countOr dered By: Elier Manuel on 04-30-2023 Eosinophils (Bld) [#/Vol] 0.0 10*3/uL Normal 0.0-0.45 [facility] Comment on above: Performed By: #### H CGQNT #### [place] [id number] [place] Automated erythrocytes count in urine sediment (number/area)Ordered By: Elier Velásquezarleen on 04-30-2023 RBC Auto (Urine sed) [#/Area] 5-9 [HPF] 0-4 [facility] Automated leukocytes count i n urine sediment (number/area)Ordered By: Elier Velásquezarleen on 04-30-2023 WBC Auto (Urine sed) [#/Area] 0-1 [HPF] 0-4 [facility] Automated monocyte %Ordered By: Elier Velásquezarleen on 04-30-2023 Monocytes/100 WBC (Bld) 7.0 % Normal . [facility] Comment on above: Performed By: #### H CGQNT #### [address] Automated neutrophil %Ordere d By: Elier Manuel on 04-30-2023 Neutrophils/100 WBC (Bld) 46.9 % Normal . [facility] Comment on above: Performed By: #### H CGQNT #### [address] Automated urine color determ inationOrdered By: Elierjaqui Jackson on 04-30-2023 Color (U) Yellow Normal Yellow [facility] Comment on above: Order Comment: Name Collection Type:: Clean-Voided Midstream Performed By: #### U HCG, ADDONUAPLUS #### [address] Basic Metabolic Panelon 04-13 Creatinine Clr Calc Pharmacy 107.67 Normal [facility] Comment on above: Performed By: #### H CGQNT #### [address] GFR/1.73 sq M.predicted MDRD (S/P/Bld) [Vol rate/Area] mL/min/{1.73_m2} Normal [facility] Comment on above: Performed By: #### H CGQNT #### [address] Bilirubin Test strip Ql (U)O rdered By: Elier Jackson on 04-30-2023 Bilirubin Ql (U) Negative Negative [facility] Bilirubin.direct [Mass/volum e] in Serum or PlasmaOrdered By: Elier Velásquezarleen on 04-30-2023 Bilirubin.direct [Mass/Vol] 0.10 mg/dL 0.03-0.18 [facility] Bilirubin.total [Mass/volume ] in Serum or PlasmaOrdered By: Elier Manuel on 04-30-2023 Bilirubin [Mass/Vol] 0.4 mg/dL Normal 0.3-1.0 [facility] Comment on above: Performed By: #### H CGQNT #### [facility] [address] Calcium [Mass/volume] in Ser um or PlasmaOrdered By: Elier Jackson on 04-30-2023 Calcium [Mass/Vol] 9.2 mg/dL Normal 8.6-10.3 [facility] Comment on above: Performed By: #### H CGQNT #### [address] Carbon dioxide, total [Moles /volume] in Serum or PlasmaOrdered By: Elier Manuel on 04-30-2023 CO2 [Moles/Vol] 20.1 mmol/L Low 21.0-31.0 [facility] Comment on above: Performed By: #### H CGQNT #### [facility] [address] [place] [address] [place] Chloride [Moles/volume] in S binu or PlasmaOrdered By: Elier Jackson on 04-30-2023 Chloride [Moles/Vol] 109 mmol/L High 98-107 [facility] Comment on above: Performed By: #### H CGQNT #### [facility] [address] [place] [address] [place] Complete Blood Count Auto Di ffon 04-30-2023 Mean Corpuscular HGB Conc 34.7 g/dL Normal 32.0-35.0 [facility] Comment on above: Performed By: #### H CGQNT #### [place] [address] [place] Monocytes/100 WBC (Bld) 16.58 % Normal 0.00-20.00 [facility] Comment on above: Performed By: #### H CGQNT #### [facility] [address] [place] [address] [place] NRBC% 0.1 /100{WBC} Normal 0-0.5 [facility] Comment on above: Performed By: #### H CGQNT #### [facility] [address] [place] [address] Creatinine [Mass/volume] in Serum or PlasmaOrdered By: Elier Jackson on 04-30-2023 Creatinine [Mass/Vol] 0.65 mg/dL Normal 0.60-1.20 [facility] Comment on above: Performed By: #### H CGQNT #### [place] [address] [place] Dipstick and Microscopicon 1 06-30-2022 Appearance (U) Clear Normal Clear [facility] Comment on above: Order Comment: Name Collection Type:: Clean-Voided Midstream Performed By: #### U HCG, ADDONUAPLUS #### [place] [address] [place] Bacteria,Urine None Seen Normal None Seen [facility] Comment on above: Order Comment: Name Collection Type:: Clean-Voided Midstream Performed By: #### U HCG, ADDONUAPLUS #### [place] [address] [place] Bilirubin,Urine Negative Normal Negative [facility] Comment on above: Order Comment: Name Collection Type:: Clean-Voided Midstream Performed By: #### U HCG, ADDONUAPLUS #### [place] [address] [place] Glucose Ql (U) Normal Normal Normal [facility] Comment on above: Order Comment: Name Collection Type:: Clean-Voided Midstream Performed By: #### U HCG, ADDONUAPLUS #### [place] [address] [place] Hyaline Casts,Urine 0-8 Normal 0-8 [facility] Comment on above: Order Comment: Name Collection Type:: Clean-Voided Midstream Performed By: #### U HCG, ADDONUAPLUS #### [address] Ketones Ql (U) Negative Normal Negative [facility] Comment on above: Order Comment: Name Collection Type:: Clean-Voided Midstream Performed By: #### U HCG, ADDONUAPLUS #### [address] Leukocyte esterase Test strip Ql (U) Negative Normal Negative [facility] Comment on above: Order Comment: Name Collection Type:: Clean-Voided Midstream Performed By: #### U HCG, ADDONUAPLUS #### [address] Nitrite,Urine Negative Normal Negative [facility] Comment on above: Order Comment: Name Collection Type:: Clean-Voided Midstream Performed By: #### U HCG, ADDONUAPLUS #### [address] Occult Blood,Urine 2+ High Negative [facility] Comment on above: Order Comment: Name Collection Type:: Clean-Voided Midstream Performed By: #### U HCG, ADDONUAPLUS #### [address] Protein,Urine Negative Normal Negative [facility] Comment on above: Order Comment: Name Collection Type:: Clean-Voided Midstream Performed By: #### U HCG, ADDONUAPLUS #### [address] RBC,Urine 5-9 High 0-4 [facility] Comment on above: Order Comment: Name Collection Type:: Clean-Voided Midstream Performed By: #### U HCG, ADDONUAPLUS #### [address] Specificy [place],Urine 1.018 Normal 1.001-1.030 [facility] Comment on above: Order Comment: Name Collection Type:: Clean-Voided Midstream Performed By: #### U HCG, ADDONUAPLUS #### [address] Squamous Epithelial Cell,Urine 0-1 Normal 0-2 [facility] Comment on above: Order Comment: Name Collection Type:: Clean-Voided Midstream Performed By: #### U HCG, ADDONUAPLUS #### [address] Urobilinogen,Urine Normal Normal Normal [facility] Comment on above: Order Comment: Name Collection Type:: Clean-Voided Midstream Performed By: #### U HCG, ADDONUAPLUS #### [address] WBC LM.HPF (Urine sed) [#/Area] 0 /[HPF] Normal 0-4 [facility] Comment on above: Order Comment: Name Collection Type:: Clean-Voided Midstream Performed By: #### U HCG, ADDONUAPLUS #### [address] Erythrocyte distribution wid th [Ratio] by Automated countOrdered By: Elier Jackson on 04-30-2023 Erythrocyte distribution width (RBC) [Ratio] 16.8 % High 11.9-15.3 [facility] Comment on above: Performed By: #### H CGQNT #### [address] Erythrocytes [#/volume] in B lood by Automated countOrdered By: Elier Jackson on 04-30-2023 RBC (Bld) [#/Vol] 3.68 10*6/uL Normal 3.60-5.00 [facility] Comment on above: Performed By: #### H CGQNT #### [address] Glucose [Mass/volume] in Ser um or PlasmaOrdered By: Elier Jackson on 04-30-2023 Glucose [Mass/Vol] 100 mg/dL Normal 70-100 [facility] Comment on above: ADA recommended refe rence rangeRandom Glucose Reference Range is dependent on time and content of last meal. Glucose of more than 200 mg/dL in a nonstressed, ambulatory subject supports the diagnosis of Diabetes Mellitus. Result Comment: [facility] Glucose Reference Range is dependent on time and content of last meal. Glucose of more than 200 mg/dL in a nonstressed, ambulatory subject supports the diagnosis of Diabetes Mellitus. ADA recommended reference range Performed By: #### H CGQNT #### [address] HCG ( test) IA.rapi d Ql (U)Ordered By: Elier Jackson on 04-30-2023 HCG ( test) Ql (U) Negative [facility] HCG,Urineon 04-30-2023 Beta HCG ( test) Ql (U) Negative Normal [facility] Comment on above: Order Comment: Name Collection Type:: Clean-Voided Midstream Result Comment: PERF ORMED BY: [place] [address] PATHOLOGIST VARNISH BLENDER FARNAZ ZULETA M.D. Performed By: #### U HCG, ADDONUAPLUS #### [address] Hematocrit [Volume Fraction] of Blood by Automated countOrdered By: Elier Jackson on 04-30-2023 Hematocrit (Bld) [Volume fraction] 32.3 % Low 34.0-46.4 [facility] Comment on above: Performed By: #### H CGQNT #### [address] Hemoglobin [Mass/volume] in BloodOrdered By: Elier Jackson on 04-30-2023 Hemoglobin (Bld) [Mass/Vol] 11.2 g/dL Low 11.8-15.4 [facility] Comment on above: Performed By: #### H CGQNT #### [address] Hepatic Panelon 04-30-2023 Albumin [Mass/Vol] 4.3 g/dL Normal 3.5-5.7 [facility] Comment on above: Performed By: #### H CGQNT #### [address] [place] [address] [place] Bilirubin,Indirect 0.3 mg/dL Normal [facility] Comment on above: Performed By: #### H CGQNT #### [address] Bilirubin.indirect [Mass/Vol] 0.10 mg/dL Normal 0.03-0.18 [facility] Comment on above: Performed By: #### H CGQNT #### [address] Ketones Auto test strip (U) [Mass/Vol]Ordered By: Elier Jackson on 04-30-2023 Ketones (U) [Mass/Vol] Negative Negative [facility] - UrinalysisOrder ed By: Elier Jackson on 04-30-2023 Hyaline casts LM Ql (Urine sed) 0-8 [LPF] 0-8 [facility] Leukocytes [#/volume] correc flo for nucleated erythrocytes in Blood by Automated counOrdered By: Elier Jackson on 04-30-2023 WBC corrected for nucl RBC Auto (Bld) [#/Vol] 3.6 10*3/uL 3.8-11.6 [facility] Leukocytes [#/volume] in Blo od by Automated countOrdered By: Elier Jackson on 04-30-2023 WBC (Bld) [#/Vol] 3.6 10*3/uL Low 3.8-11.6 [facility] Comment on above: Performed By: #### H CGQNT #### [address] Lipase [Enzymatic activity/v olume] in Serum or PlasmaOrdered By: Elier Jackson on 04-30-2023 Lipase [Catalytic activity/Vol] 31.0 U/L Normal 11.0-82.0 [facility] Comment on above: Result Comment: PERF ORMED BY: [place] [address] PATHOLOGIST VARNISH BLENDER FARNAZ ZULETA M.D. Performed By: #### H CGQNT #### [address] Lymphocytes [#/volume] in Bl ood by Automated countOrdered By: Elier Jackson on 04-30-2023 Lymphocytes (Bld) [#/Vol] 1.6 10*3/uL Normal 1.00-4.8 [facility] Comment on above: Performed By: #### H CGQNT #### [address] Lymphocytes/100 leukocytes i n Blood by Automated countOrdered By: Elier Jackson on 04-30-2023 Lymphocytes/100 WBC (Bld) 44.2 % Normal . [facility] Comment on above: Performed By: #### H CGQNT #### [address] MCH [Entitic mass] by Automa flo countOrdered By: Elier Jackson on 04-30-2023 MCH (RBC) [Entitic mass] 30.4 pg Normal 24.7-34.3 [facility] Comment on above: Performed By: #### H CGQNT #### [address] MCHC Auto (RBC) [Mass/Vol]Or dered By: Elier Jackson on 04-30-2023 MCHC (RBC) [Mass/Vol] 34.7 g/dL 32.0-35.0 [facility] MCV [Entitic volume] by Auto mated countOrdered By: Elier Jackson on 04-30-2023 MCV (RBC) [Entitic vol] 87.6 fL Normal 80-100 [facility] Comment on above: Performed By: #### H CGQNT #### [address] Monocyte distribution width [Entitic volume] in Blood by AutomatedOrdered By: Elier Jackson on 04-30-2023 Monocyte distribution width Auto (Bld) [Entitic vol] 16.58 % 0.00-20.00 [facility] Neutrophils [#/volume] in Bl ood by Automated countOrdered By: Elier Jackson on 04-30-2023 Neutrophils (Bld) [#/Vol] 1.7 10*3/uL Low 1.8-7.7 [facility] Comment on above: Performed By: #### H CGQNT #### [address] Nitrite Test strip Ql (U)Ord ered By: Elier Jackson on 04-30-2023 Nitrite Ql (U) Negative Negative [facility] No Panel InformationOrdered By: Elier Jackson on 04-30-2023 Estimated GFR (CKD-EPI) > 60.0 mL/Min [facility] Creatinine Clearance (Chem 107.67 [facility] Nucleated erythrocytes [Pres ence] in Blood by Automated countOrdered By: Elier Jackson on 04-30-2023 Nucleated RBC Auto Ql (Bld) 0.1 /100{WBC} 0-0.5 [facility] Platelet mean volume [Entiti c volume] in Blood by Automated countOrdered By: Elier Jackson on 04-30-2023 Platelet mean volume (Bld) [Entitic vol] 8.0 fL Normal 6.3-10.7 [facility] Comment on above: Performed By: #### H CGQNT #### [place] [address] [place] Platelets [#/volume] in Bloo d by Automated countOrdered By: Elier Jackson on 04-30-2023 Platelets (Bld) [#/Vol] 415 10*3/uL Normal 150-450 [facility] Comment on above: Performed By: #### H CGQNT #### [place] [address] [place] Potassium [Moles/volume] in Serum or PlasmaOrdered By: Elier Jackson on 04-30-2023 Potassium [Moles/Vol] 3.8 mmol/L Normal 3.5-5.1 [facility] Comment on above: Performed By: #### H CGQNT #### [address] Protein Auto test strip (U) [Mass/Vol]Ordered By: Elier Jackson on 04-30-2023 Protein (U) [Mass/Vol] Negative Negative [facility] Protein [Mass/volume] in Ser um or PlasmaOrdered By: Elier Manuel on 04-30-2023 Protein [Mass/Vol] 7.6 g/dL Normal 6.4-8.9 [facility] Comment on above: Performed By: #### H CGQNT #### [address] Serum globulin measurement b y calculation (mass/volume)Ordered By: Elier Jackson on 04-30-2023 Globulin (S) [Mass/Vol] 3.3 g/dL Normal [facility] Comment on above: Performed By: #### H CGQNT #### [address] Serum or plasma albumin/glob ulin mass ratioOrdered By: Elier Jackson on 04-30-2023 Albumin/Globulin [Mass ratio] 1.3 {ratio} Normal [facility] Comment on above: Performed By: #### H CGQNT #### [address] Serum or plasma anion gap de terminationOrdered By: Elier Jackson on 04-30-2023 Anion gap [Moles/Vol] 14.7 mmol/L Normal 6.0-15.0 [facility] Comment on above: Performed By: #### H CGQNT #### [address] Serum or plasma non-glucuron idated bilirubin measurement (mass/volume)Ordered By: Elier Jackson on 04-30-2023 Bilirubin.indirect [Mass/Vol] 0.3 mg/dL [facility] Sodium [Moles/volume] in Ser um or PlasmaOrdered By: Elier Jackson on 04-30-2023 Sodium [Moles/Vol] 140 mmol/L Normal 136-145 [facility] Comment on above: Performed By: #### H CGQNT #### [address] Specific gravity Auto test s trip (U) [Rel density]Ordered By: Elier Jackson on 04-30-2023 Specific gravity (U) [Rel density] 1.018 1.001-1.030 [facility] Squamous epithelial cells de tection in urine sediment by light microscopyOrdered By: Elier Jackson on 04-30-2023 Epithelial cells.squamous LM Ql (Urine sed) 0-1 [HPF] 0-2 [facility] US pelvic completeon 023 US pelvic complete [facility] [place] [address] Ultrasound Report Signed Patient: Antonia Noyola MR#: [id number] : 1985 Acct:[id number] Age/Sex: 38 / F ADM Date: 04/30/23 Loc: ER Room: Type: [facility] ER Attending Dr: Ordering Provider: Elier Jackson DO Date of Service: 04/30/23 US/US pelvic complete: L pelvic pain ([id number]) US/US transvaginal: LT PELVIC PAIN Copies to: [...] torsion. Impression dictated by: Dennis Betancur Jr., D.OEbenezer04/30/2023 6:24 PM Dictation Location: [place] [address] Tech: Brooke Hodge Transcribed By: AMBER 04/30/231823 Dictated By: Dennis Betancur Jr, DO 04/30/231820 Signed By: 04/30/23 182 Normal [facility] Urea nitrogen [Mass/volume] in Serum or PlasmaOrdered By: Elier Jackson on 04-30-2023 Urea nitrogen [Mass/Vol] 6 mg/dL Low 7-25 [facility] Comment on above: Performed By: #### H CGQNT #### [facility] [address] Urine bacteria detection by automated methodOrdered By: Elier Jackson on 04-30-2023 Bacteria Auto Ql (U) None seen None Seen [facility] Urine clarity by refractomet ry automatedOrdered By: Elier Jackson on 04-30-2023 Clarity Refractometry automated (U) Clear Clear [facility] Urine glucose measurement by automated test strip (mass/volume)Ordered By: Elier Jackson on 04-30-2023 Glucose Auto test strip (U) [Mass/Vol] Normal mg/dL Normal [facility] Urine hemoglobin detection b y automated test stripOrdered By: Elier Jackson on 04-30-2023 Hemoglobin Auto test strip Ql (U) 2+ Negative [facility] Urine leukocyte esterase det ection by automated test stripOrdered By: Elier Jackson on 04-30-2023 Leukocyte esterase Auto test strip Ql (U) Negative Negative [facility] Urine pH measurement by auto mated test stripOrdered By: Elier Jackson on 04-30-2023 pH (U) 5.5 [pH] Normal 5.0-9.0 [facility] Comment on above: Order Comment: Name Collection Type:: Clean-Voided Midstream Performed By: #### U HCG, ADDONUAPLUS #### [facility] [address] [place], [place] [id number] [place] Urobilinogen Auto test strip (U) [Mass/Vol]Ordered By: Elier Jackson on 04-30-2023 Urobilinogen (U) [Mass/Vol] Normal mg/dL Normal [facility] Auto Diffon 04-24-2023 Basophils/100 WBC (Bld) 0.3 % Normal 0.0-2.0 F [facility] Comment on above: Order Comment: Order Added by Discern Expert. Performed By: #### 2 407525, 8343438, 5416261, 13548188, 26508608 #### [facility] Laboratory [address] [place] [address] 70917 Basophils/Leukocytes Auto (Bld) [Pure # fraction] 0.0 E9/L Normal 0.0-0.2 [facility] Comment on above: Order Comment: Order Added by Lis Expert. Performed By: #### 2 076410, 7520712, 7856682, 72150500, 26536283 #### [facility] Laboratory [address] [place] [address] 35762 Eosinophils/100 WBC (Bld) 0.9 % Normal 0.0-8.0 [facility] Comment on above: Order Comment: Order Added by Lis Expert. Performed By: #### 2 297461, 3777831, 8345546, 99140663, 72306140 #### [facility] Laboratory [address] [place] [address] 21352 Eosinophils/Leukocytes Auto (Bld) [Pure # fraction] 0.0 E9/L Normal 0.0-0.5 [facility] Comment on above: Order Comment: Order Added by Lis Expert. Performed By: #### 2 727279, 9648772, 0475693, 55050739, 01769422 #### [facility] Laboratory [address] [place] [address] 14262 Lymphocytes/100 WBC (Bld) 49.9 % Normal 14.0-50.0 [facility] Comment on above: Order Comment: Order Added by Lis Expert. Performed By: #### 2 716266, 0905557, 4905468, 48602804, 19461951 #### [facility] Laboratory [address] [place] [address] 94283 Lymphocytes/Leukocytes Auto (Bld) [Pure # fraction] 2.3 E9/L Normal 1.0-4.0 [facility] Comment on above: Order Comment: Order Added by Lis Expert. Performed By: #### 2 282402, 8722000, 6028717, 45344403, 32409131 #### [facility] Laboratory [address] [place] [address] Monocytes/100 WBC (Bld) 7.1 % Normal 4.0-14.0 F [facility] Comment on above: Order Comment: Order Added by Discern Expert. Performed By: #### 2 737216, 0174602, 9993092, 77865263, 13185074 #### [facility] Laboratory [address] [place] [address] Monocytes/Leukocytes Auto (Bld) [Pure # fraction] 0.3 E9/L Normal 0.2-1.0 [facility] Comment on above: Order Comment: Order Added by Discern Expert. Performed By: #### 2 251323, 7299145, 0090966, 04135178, 55900053 #### [facility] Laboratory [address] [place] [address] 27239 Neutrophils/100 WBC (Bld) 41.8 % Normal 36.0-75.0 [facility] Comment on above: Order Comment: Order Added by Discern Expert. Performed By: #### 2 814172, 6681650, 4686688, 34475038, 84014464 #### [facility] Laboratory [address] [place] [address] 32062 Neutrophils/Leukocytes Auto (Bld) [Pure # fraction] 2.0 E9/L Normal 2.0-7.5 [facility] Comment on above: Order Comment: Order Added by Discern Expert. Performed By: #### 2 720492, 3059071, 6338605, 13406949, 47999186 #### [facility] Laboratory [address] [place] [address] B hCG Qualon 04-24-2023 Beta HCG ( test) Ql Negative Normal [facility] Comment on above: Performed By: #### 2 723603, 7357939, 7366335, 41558784, 35698397 #### [facility] Laboratory [address] [place] [address] 64110 BMPon 04-24-2023 Creatinine [Mass/Vol] 0.7 mg/dL Normal 0.5-1.3 [facility] Comment on above: Performed By: #### 2 889870, 3293880, 3405549, 85982587, 00147220 #### [facility] Laboratory [address] [place] [address] Urea nitrogen [Mass/Vol] 6 mg/dL Normal 5-21 [facility] Comment on above: Performed By: #### 2 618816, 8440488, 0608485, 03826668, 04344156 #### [facility] Laboratory [address] [place] [address] Urea nitrogen/Creatinine [Mass ratio] 9 No Units Low 10-20 [facility] Comment on above: Performed By: #### 2 595428, 7771070, 7321130, 87177945, 29326164 #### [facility] Laboratory [address] [place] [address] Anion gap [Moles/Vol] 14 mmol/L Normal 6-16 [facility] Comment on above: Performed By: #### 2 218550, 4316959, 9769757, 23631034, 79767555 #### [facility] Laboratory [address] [place] [address] Calcium [Mass/Vol] 9.4 mg/dL Normal 8.9-11.1 [facility] Comment on above: Performed By: #### 2 272321, 8173540, 1083286, 23703805, 20623837 #### [facility] Laboratory [address] [place] [address] Chloride [Moles/Vol] 105 mmol/L Normal 101-111 [facility] Comment on above: Performed By: #### 2 732082, 5600296, 9578521, 69709820, 61554031 #### [facility] Laboratory [address] [place] [address] CO2 [Moles/Vol] 23 mmol/L Normal 21-31 [facility] Comment on above: Performed By: #### 2 222838, 7356608, 5171060, 78180770, 16532154 #### [facility] Laboratory [address] [place] [address] Glucose [Mass/Vol] 95 mg/dL Normal 55-199 [facility] Comment on above: Result Comment: If t his glucose result represents a fasting glucose, interpretation should refer to the following reference range: 55-99 mg/dL Performed By: #### 2 467810, 9202544, 9681556, 00786092, 57492556 #### [facility] Laboratory [address] [place] [address] Potassium [Moles/Vol] 3.8 mmol/L Normal 3.5-5.3 [facility] Comment on above: Performed By: #### 2 435328, 1823798, 9125625, 13572418, 23653441 #### [facility] Laboratory [address] [place] [address] 00292 Sodium [Moles/Vol] 138 mmol/L Normal 135-145 [facility] Comment on above: Performed By: #### 2 488007, 4875513, 9781923, 65796638, 56256308 #### [facility] Laboratory [address] [place] [address] 00021 CBC w/ Auto Diffon 3 Erythrocyte distribution width (RBC) [Ratio] 15.9 % High 10.9-14.2 [facility] Comment on above: Performed By: #### 2 763060, 8305350, 9051964, 47434839, 98971096 #### [facility] Laboratory [address] [place] [address] 60675 Hematocrit (Bld) [Volume fraction] 33.7 % Low 34.0-46.0 [facility] Comment on above: Performed By: #### 2 689040, 3110184, 2963927, 45891357, 81501028 #### [facility] Laboratory [address] [place] [address] 82791 Hemoglobin (Bld) [Mass/Vol] 11.7 g/dL Low 12.0-16.0 [facility] Comment on above: Performed By: #### 2 452343, 2254590, 8398506, 83676415, 10305634 #### [facility] Laboratory [address] [place] [address] 68242 MCH (RBC) [Entitic mass] 29.7 pg Normal 27.0-34.0 [facility] Comment on above: Performed By: #### 2 902253, 6785382, 5880349, 69362445, 67004842 #### [facility] Laboratory [address] [place] [address] 48686 MCHC (RBC) [Mass/Vol] 34.7 g/dL Normal 31.4-36.0 [facility] Comment on above: Performed By: #### 2 541179, 2251225, 9175310, 51069496, 76247082 #### [facility] Laboratory [address] [place] [address] 81065 MCV (RBC) [Entitic vol] 85.8 fL Normal 80.0-100.0 F [facility] Comment on above: Performed By: #### 2 748053, 7748685, 8648654, 59447679, 62308300 #### [facility] Laboratory [address] [place] [address] 58771 Platelet mean volume (Bld) [Entitic vol] 8.2 fL Normal 6.4-10.8 [facility] Comment on above: Performed By: #### 2 021268, 3874153, 8771666, 28584584, 17475231 #### [facility] Laboratory [address] [place] [address] 34666 Platelets (Bld) [#/Vol] 398.0 E9/L Normal 150.0-500.0 [facility] Comment on above: Performed By: #### 2 247852, 4292317, 4374211, 06378449, 91361809 #### [facility] Laboratory [address] [place] [address] 11446 RBC (Bld) [#/Vol] 3.9 E12/L Low 4.3-5.9 [facility] Comment on above: Performed By: #### 2 302710, 5802937, 3022954, 43823912, 76725451 #### [facility] Laboratory [address] [place] [address] WBC corrected for nucl RBC Auto (Bld) [#/Vol] 4.7 E9/L Normal 4.0-11.0 [facility] Comment on above: Performed By: #### 2 859778, 9027029, 8595672, 99013503, 53060321 #### [facility] Laboratory [address] [place] [address] CHEMISTRYOrdered By: SYSTEM SYSTEM on 04-24-2023 Anion gap [Moles/Vol] 14 mmol/L Normal 6 - 16 mEq/L [facility] Calcium [Mass/Vol] 9.4 mg/dL Normal 8.9 - 11. 1 mg/dL [facility] Chloride [Moles/Vol] 105 mmol/L Normal 101 - 1 11 mmol/L [facility] CO2 [Moles/Vol] 23 mmol/L Normal 21 - 31 mmol/L [facility] Creatinine [Mass/Vol] 0.7 mg/dL Normal 0.5 - 1.3 mg/dL [facility] GFR/1.73 sq M.predicted among non-blacks MDRD (S/P/Bld) [Vol rate/Area] 115 mL/min/1.73 m2 Normal >=59mL/min/ 1.73 m2 [facility] Chem S Comment on above: Interpretive Data: C hronic kidney disease could be indicated at eGFR's of less than 60 mL/min/1.73m2. Kidney failure is indicated at less than 15 mL/min/1.73m2. Glucose [Mass/Vol] 95 mg/dL Normal 55 - 199 mg/dL [facility] Comment on above: Interpretive Data: I f this glucose result represents a fasting glucose, interpretation should refer to the following reference range: 55-99 mg/dL Potassium [Moles/Vol] 3.8 mmol/L Normal 3.5 - 5.3 mmol/L [facility] Sodium [Moles/Vol] 138 mmol/L Normal 135 - 145 mmol/L [facility] Urea nitrogen [Mass/Vol] 6 mg/dL Normal 5 - 21 mg/dL [facility] Urea nitrogen/Creatinine [Mass ratio] 9 mg/mg Low 10 - 20 [facility] Remisol CT Abdomen/Pelvis w/ Contras ton 04-24-2023 [...] 300 Contrast amount in ml's: 100 Normal [facility] Consent for Treatmenton 04-13 Consent for Treatment [id number] 0TIFF Normal [facility] Discharge Instructionson Discharge Instructions [id number] 0TIFF Normal [facility] ED Clinical Summaryon 2022 ED Clinical Summary [id number] ED Clinical Summary Person Information Name: ANTONIA NOYOLA/Michelle Age: 38 Years : 1985 Sex: Female Language: Citizen Of [place] PCP: BETTIE MIRELES Marital Status: Visit Id: [...] 04/24/2023 16:04:18 04/24/2023 16:04:18 04/24/2023 16:04:18 ADDRESS: [address] [place] [address] [address] [place] [id number] PHYS DOC NOTES: MEDICAL INFORMATION: Prescriptions Given: New Medications [id number], [address] [place], [place] [id number], [phone] oxycodone (oxyCODONE 5 mg Cap) 1 Capsules By Mouth every 6 hours as needed Pain 8-10 for 3 Days. Refills: 0. Medications to Continue with No Changes Other Medications alprazolam (alprazolam 0.25 mg Tab) budesonide-formoterol (Symbicort 80/4.5 inhalation aerosol with adapter) citalopram (citalopram 20 mg Tab) By Mouth every day. PATIENT EDUCATION INFORMATION: Instructions: Abdominal Pain, Adult Follow up: With: Address: When: YOUR OBGYN at [facility] In 3 days 04/27/2023 Comments: Seek [...] Abdominal pain, acute, left lower quadrant Normal [facility] ED Note-Physicianon 04-24-20 ED Note-Physician Basic Information [...] [facility]. She has a visit at [facility] for similar symptoms in the middle [...] for home. 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 Return precautions were discussed. All questions were answered. The patient was discharged home. Assessment/Plan Abdominal pain, acute, left lower quadrant (R10.32: Left lower quadrant pain) Ordered: oxycodone, 5 mg = 1 cap(s), Oral, q6hr, PRN Pain 8-10, X 3 day(s), # 12 cap(s), Refills(s) 0, Pharmacy: [id number], 165.1, cm, 04/24/23 13:32:00 EST, Height/Length Dosing, 84, kg, 04/24/23 13:32:00 EST, Weight Dosing Orders: acetaminophen-oxycodon e, 1 tab(s), Tab, Oral, Once, Stop date [...] With When Contact Information YOUR OBGYN at [facility] In 3 days 04/27/2023 EST Additional [...] follow-up with (more content not included)... Normal [facility] Comment on above: Result Comment: Elec tronically Signed By: Jignesh uDmont DO\.br\Date and Time Signed: 04/24/23 17:56 EST [...] these instructions at home: Medicines ? Take xgmv-hkg-tokhftm and prescription medicines only as told by [...] your condition for any changes. ? Take xafp-ppg-cvjqkwx and prescription medicines only as told by [...] provider. Document Revised: 07/18/2020 Document Reviewed: 10/08/2019 [employer] Patient Education ? 2022 [employer] Normal [facility] ED Patient Summaryon 023 ED Patient Summary [place] [id number] Patient Discharge Instructions Person Information Name: ANTONIA NOYOLA Age: 38 Years Arrival Date: 04/24/2023 13:12:30 Discharge Diagnosis: Abdominal pain, acute, left lower quadrant Primary Care Physician: BETTIE MIRELES Provider Information Primary Provider: Jignesh Dumont DO Advanced Fire Protection Specialist:Shazia The exam and treatment you received in the Emergency Department were for an urgent problem and are not intended as complete care. It is important that you follow up with a doctor, nurse practitioner, or physician?s personal injury legal assistant for ongoing care. If your symptoms become worse or you do not improve as expected and you are unable to reach your usual health care provider, you should return to the Emergency Department. We are available 24 hours a day. ANTONIA NOYOLA has been given the following list of patient education materials, prescriptions and follow-up instructions: Follow-up Instructions: With: Address: When: YOUR OBGYN at [facility] In 3 days 04/27/2023 Comments: Seek [...] opioids can be used to help relieve tdcvittb-gm-lbtevf pain and are often prescribed following a [...] Talk about (more content not included)... Normal [facility] HEMATOLOGYOrdered By: SYSTEM SYSTEM on 04-24-2023 Basophils/100 [...] test) Ql Negative (04/24/23 1:55 PM) Normal [facility] Man Sero UA With Cult Reflexon 2022 Bacteria LM Ql (Urine sed) TRACE Normal Trace [facility] Comment on above: Performed By: #### 2 540188, 6947094, 9823744, 50257530, 18629010 #### [facility] Laboratory [address] [place] [address] Bilirubin Ql (U) Negative Normal Negative [facility] Comment on above: Performed By: #### 2 674748, 9229972, 5357077, 82997832, 27854421 #### [facility] Laboratory [address] [place] [address] Clarity (U) CLEAR Normal Clear [facility] Comment on above: Performed By: #### 2 640602, 7833203, 4679607, 39916710, 36265115 #### [facility] Laboratory [address] [place] [address] Color (U) STRAW Abnormal Yellow [facility] Comment on above: Performed By: #### 2 907027, 9898390, 3155493, 17711963, 97135606 #### [facility] Laboratory [address] [place] [address] 96474 Epithelial cells.squamous LM.HPF (Urine sed) [#/Area] 3-4 Normal 0-2 [facility] Comment on above: Performed By: #### 2 599899, 6152572, 4628271, 66826987, 52103991 #### [facility] Laboratory [address] [place] [address] Glucose Test strip (U) [Mass/Vol] Negative Normal Negative [facility] Comment on above: Performed By: #### 2 186543, 2110982, 4899841, 06800807, 70420057 #### [facility] Laboratory [address] [place] [address] Hemoglobin Ql (U) Negative Normal Negative [facility] Comment on above: Performed By: #### 2 746188, 0989594, 2147155, 64284335, 15793541 #### [facility] Laboratory [address] [place] [address] Ketones (U) [Mass/Vol] Negative Normal Negative [facility] Comment on above: Performed By: #### 2 466524, 3963394, 7151207, 76603431, 03702427 #### [facility] Laboratory [address] [place] [address] [place].plasma/[place]. RBC (Bld) [Mass ratio] 0-3 Normal 0-3 [facility] Comment on above: Performed By: #### 2 983335, 7058917, 6785128, 12906704, 16613251 #### [facility] Laboratory [address] [place] [address] Nitrite Ql (U) Negative Normal Negative [facility] Comment on above: Performed By: #### 2 623370, 3793931, 9291934, 43467075, 63645982 #### [facility] Laboratory [address] [place] [address] 12459 pH (U) 7.0 [pH] Invalid Interpretation Code 5.0-9.0 [facility] Comment on above: Performed By: #### 2 711266, 2097702, 4487911, 72661478, 96673515 #### [facility] Laboratory [address] [place] [address] Protein (U) [Mass/Vol] Negative Normal Negative [facility] Comment on above: Performed By: #### 2 296360, 7012018, 4088544, 87696362, 18769042 #### [facility] Laboratory [address] [place] [address] 30219 Specific gravity (U) [Rel density] <=1.005 Invalid Interpretation Code 1.005-1.030 [facility] Comment on above: Performed By: #### 2 003944, 4471148, 4518200, 29609747, 17640402 #### [facility] Laboratory [address] [place] [address] 63498 Type of Urine collection method Clean Catch Normal [facility] Comment on above: Performed By: #### 2 111437, 1141839, 7716350, 50322916, 92241608 #### [facility] Laboratory [address] [place] [address] Urobilinogen Qn (U) 0.2 {Ivone'U}/dL Normal 0.0-1.0 [facility] Comment on above: Performed By: #### 2 205500, 4738915, 8143135, 17735434, 05439732 #### [facility] Laboratory [address] [place] [address] WBC Auto Ql (U) TRACE Abnormal Negative [facility] Comment on above: Performed By: #### 2 167369, 0571604, 0395329, 61723641, 15188607 #### [facility] Laboratory [address] [place] [address] WBC LM.HPF (Urine sed) [#/Area] 0-5 Normal 0-5 [facility] Comment on above: Performed By: #### 2 361712, 8918259, 5689731, 70196141, 29007716 #### [facility] Laboratory [address] [place] [address] URINALYSISOrdered By: Chance Guthrie on 04-24-2023 Bacteria [...] PM) Normal Negative [facility] UA Auto SS [place].plasma/[place]. RBC (Bld) [Mass ratio] 0-3 /HPF Normal [...] [facility] UA Auto SS Urobilinogen Qn (U) 0.6883640 {Ivone'U}/dL Normal 0.0 - 1.0 EU/dL [facility] UA Auto SS WBC Auto Ql (U) Trace *ABN* (04/24/23 2:56 PM) Invalid Interpretation Code Negative [facility] UA Auto SS WBC LM.HPF (Urine sed) [#/Area] 0-5 /HPF Normal 0-5/HPF [facility] UA Auto SS eGFRon 04-24-2023 GFR/1.73 sq M.predicted among non-blacks MDRD (S/P/Bld) [Vol rate/Area] 115 mL/min/1.73 m2 Normal >=59 [facility] Comment on above: Order Comment: Order added by Discern Expert. Result Comment: Vehicle Upholsterer franklin kidney disease could be indicated at eGFR's of less than 60 mL/min/1.73m2. Kidney failure is indicated at less than 15 mL/min/1.73m2. Performed By: #### 2 268706, 1237911, 8655451, 13470921, 72864153 #### [facility] Laboratory [address] [place] [address] 32527 Anisocytosis [Presence] in B lood by Light microscopyOrdered By: Ming Childress on 04-02-2023 Anisocytosis Ql (Bld) Moderate Normal [facility] Comment on above: Performed By: #### U HCG, ADDONUAPLUS #### [address] Automated erythrocytes count in urine sediment (number/area)Ordered By: Ming Childress on 04-02-2023 RBC Auto (Urine sed) [#/Area] 20-49 [HPF] 0-4 [facility] Automated leukocytes count i n urine sediment (number/area)Ordered By: Ming Childress on 04-02-2023 WBC Auto (Urine sed) [#/Area] 3-4 [HPF] 0-4 [facility] Automated urine color determ inationOrdered By: Ming Childress on 04-02-2023 Color (U) Yellow Normal Yellow [facility] Comment on above: Order Comment: Name Collection Type:: Clean-Voided Midstream Performed By: #### U HCG, ADDONUAPLUS #### [address] Basic Metabolic Panelon 03-14 Creatinine Clr Calc Pharmacy 97.72 Normal [facility] Comment on above: Result Comment: PERF ORMED BY: [place] [address] PATHOLOGIST VARNISH BLENDER FARNAZ ZULETA M.D. Performed By: #### U HCG, ADDONUAPLUS #### [address] GFR/1.73 sq M.predicted MDRD (S/P/Bld) [Vol rate/Area] mL/min/{1.73_m2} Normal [facility] Comment on above: Performed By: #### U HCG, ADDONUAPLUS #### [place] [address] [place] Basophils Auto (Bld) [#/Vol] Ordered By: Ming Childress on 04-02-2023 Basophils (Bld) [#/Vol] N/A F [facility] Basophils/100 WBC Auto (Bld) Ordered By: Ming Childress on 04-02-2023 Basophils/100 WBC (Bld) N/A F [facility] Basophils/100 leukocytes in Blood by Manual countOrdered By: Ming Childress on 04-02-2023 Basophils/100 WBC (Bld) 1 % Normal 0-2 [facility] Comment on above: Performed By: #### U HCG, ADDONUAPLUS #### [facility] [address] Bilirubin Test strip Ql (U)O rdered By: Ming Monroe on 04-02-2023 Bilirubin Ql (U) Negative Negative [facility] Calcium [Mass/volume] in Ser um or PlasmaOrdered By: Mingsil Childress on 04-02-2023 Calcium [Mass/Vol] 9.2 mg/dL Normal 8.6-10.3 [facility] Comment on above: Performed By: #### U HCG, ADDONUAPLUS #### [address] Carbon dioxide, total [Moles /volume] in Serum or PlasmaOrdered By: Ming Childress on 04-02-2023 CO2 [Moles/Vol] 18.5 mmol/L Low 21.0-31.0 [facility] Comment on above: Performed By: #### U HCG, ADDONUAPLUS #### [facility] [address] [place] [address] Chloride [Moles/volume] in S binu or PlasmaOrdered By: Ming Childress on 04-02-2023 Chloride [Moles/Vol] 108 mmol/L High 98-107 [facility] Comment on above: Performed By: #### U HCG, ADDONUAPLUS #### [facility] [address] [place] [address] Creatinine [Mass/volume] in Serum or PlasmaOrdered By: Ming Childress on 04-02-2023 Creatinine [Mass/Vol] 0.84 mg/dL Normal 0.60-1.20 [facility] Comment on above: Performed By: #### U HCG, ADDONUAPLUS #### [facility] [address] [place] [address] [place] Diff and CBCon 04-02-2023 Hypochromasia Slight Normal [facility] Comment on above: Performed By: #### U HCG, ADDONUAPLUS #### [address] Mean Corpuscular HGB Conc 31.8 g/dL Low 32.0-35.0 [facility] Comment on above: Performed By: #### U HCG, ADDONUAPLUS #### [address] Monocytes/100 WBC (Bld) 18.83 % Normal 0.00-20.00 [facility] Comment on above: Performed By: #### U HCG, ADDONUAPLUS #### [address] Nucleated Red Blood Cell 3 /100{WBC} High 0-0 [facility] Comment on above: Performed By: #### U HCG, ADDONUAPLUS #### [address] Ovalocytes Slight Normal [facility] Comment on above: Performed By: #### U HCG, ADDONUAPLUS #### [address] Platelet Estimate Increased Normal Normal [facility] Comment on above: Performed By: #### U HCG, ADDONUAPLUS #### [address] Platelet Morphology Normal Normal Normal [facility] Comment on above: Result Comment: PERF ORMED BY: [place] [address] PATHOLOGIST V[employer]ISH [employer]ENDER FARNAZ ZULETA M.D. Performed By: #### U HCG, ADDONUAPLUS #### [address] Poikilocytosis Slight Normal [facility] Comment on above: Performed By: #### U HCG, ADDONUAPLUS #### [address] Polychromasia Moderate Normal [facility] Comment on above: Performed By: #### U HCG, ADDONUAPLUS #### [place] [address] [place] Smudge Cells Slight Normal [facility] Comment on above: Performed By: #### U HCG, ADDONUAPLUS #### [facility] [address] [place] [address] Toxic Vacuolation Slight Normal [facility] Comment on above: Performed By: #### U HCG, ADDONUAPLUS #### [place] [address] [place] Dipstick and Microscopicon 1 Appearance (U) Clear Normal Clear [facility] Comment on above: Order Comment: Name Collection Type:: Clean-Voided Midstream Performed By: #### U HCG, ADDONUAPLUS #### [address] Bacteria,Urine None Seen Normal None Seen [facility] Comment on above: Order Comment: Name Collection Type:: Clean-Voided Midstream Performed By: #### U HCG, ADDONUAPLUS #### [address] Bilirubin,Urine Negative Normal Negative [facility] Comment on above: Order Comment: Name Collection Type:: Clean-Voided Midstream Performed By: #### U HCG, ADDONUAPLUS #### [address] Glucose Ql (U) Normal Normal Normal [facility] Comment on above: Order Comment: Name Collection Type:: Clean-Voided Midstream Performed By: #### U HCG, ADDONUAPLUS #### [facility] [address] [place] [address] Hyaline Casts,Urine 0-8 Normal 0-8 [facility] Comment on above: Order Comment: Name Collection Type:: Clean-Voided Midstream Performed By: #### U HCG, ADDONUAPLUS #### [address] Ketones Ql (U) Trace High Negative [facility] Comment on above: Order Comment: Name Collection Type:: Clean-Voided Midstream Performed By: #### U HCG, ADDONUAPLUS #### [address] Leukocyte esterase Test strip Ql (U) 1+ High Negative [facility] Comment on above: Order Comment: Name Collection Type:: Clean-Voided Midstream Performed By: #### U HCG, ADDONUAPLUS #### [place] [address] [place] Nitrite,Urine Negative Normal Negative [facility] Comment on above: Order Comment: Name Collection Type:: Clean-Voided Midstream Performed By: #### U HCG, ADDONUAPLUS #### [address] Occult Blood,Urine 3+ High Negative [facility] Comment on above: Order Comment: Name Collection Type:: Clean-Voided Midstream Performed By: #### U HCG, ADDONUAPLUS #### [address] Protein,Urine Negative Normal Negative [facility] Comment on above: Order Comment: Name Collection Type:: Clean-Voided Midstream Performed By: #### U HCG, ADDONUAPLUS #### [address] RBC,Urine 20-49 High 0-4 [facility] Comment on above: Order Comment: Name Collection Type:: Clean-Voided Midstream Performed By: #### U HCG, ADDONUAPLUS #### [place] [address] [place] Specificy [place],Urine 1.018 Normal 1.001-1.030 [facility] Comment on above: Order Comment: Name Collection Type:: Clean-Voided Midstream Performed By: #### U HCG, ADDONUAPLUS #### [place] [address] [place] Squamous Epithelial Cell,Urine 3-4 High 0-2 [facility] Comment on above: Order Comment: Name Collection Type:: Clean-Voided Midstream Performed By: #### U HCG, ADDONUAPLUS #### [address] Urobilinogen,Urine Normal Normal Normal [facility] Comment on above: Order Comment: Name Collection Type:: Clean-Voided Midstream Performed By: #### U HCG, ADDONUAPLUS #### [place] [address] [place] WBC,Urine 3-4 Normal 0-4 [facility] Comment on above: Order Comment: Name Collection Type:: Clean-Voided Midstream Performed By: #### U HCG, ADDONUAPLUS #### [address] Eosinophils Auto (Bld) [#/Vo l]Ordered By: Ming Childress on 04-02-2023 Eosinophils (Bld) [#/Vol] N/A [facility] Eosinophils/100 WBC Auto (Bl d)Ordered By: Ming Childress on 04-02-2023 Eosinophils/100 WBC (Bld) N/A [facility] Eosinophils/100 leukocytes i n Blood by Manual countOrdered By: Ming Childress on 04-02-2023 Eosinophils/100 WBC (Bld) 4 % High 1-3 [facility] Comment on above: Performed By: #### U HCG, ADDONUAPLUS #### [address] Erythrocyte distribution wid th [Ratio] by Automated countOrdered By: Ming Childress on 04-02-2023 Erythrocyte distribution width (RBC) [Ratio] 15.2 % Normal 11.9-15.3 [facility] Comment on above: Performed By: #### U HCG, ADDONUAPLUS #### [address] Erythrocytes [#/volume] in B lood by Automated countOrdered By: Ming Childress on 04-02-2023 RBC (Bld) [#/Vol] 4.67 10*6/uL Normal 3.60-5.00 [facility] Comment on above: Performed By: #### U HCG, ADDONUAPLUS #### [place] [address] [place] Glucose [Mass/volume] in Ser um or PlasmaOrdered By: Ming Childress on 04-02-2023 Glucose [Mass/Vol] 94 mg/dL Normal 70-100 [facility] Comment on above: ADA recommended refe rence rangeRandom Glucose Reference Range is dependent on time and content of last meal. Glucose of more than 200 mg/dL in a nonstressed, ambulatory subject supports the diagnosis of Diabetes Mellitus. Result Comment: [place] om Glucose Reference Range is dependent on time and content of last meal. Glucose of more than 200 mg/dL in a nonstressed, ambulatory subject supports the diagnosis of Diabetes Mellitus. ADA recommended reference range Performed By: #### U HCG, ADDONUAPLUS #### [address] HCG ( test) IA.rapi d Ql (U)Ordered By: Ming Childress on 04-02-2023 HCG ( test) Ql (U) Negative [facility] HCG,Urineon 04-02-2023 Beta HCG ( test) Ql (U) Negative Normal [facility] Comment on above: Order Comment: Name Collection Type:: Clean-Voided Midstream Result Comment: PERF ORMED BY: [place] [address] PATHOLOGIST VARNISH [employer]ENDER FARNAZ ZULETA M.D. Performed By: #### U HCG, ADDONUAPLUS #### [address] Hematocrit [Volume Fraction] of Blood by Automated countOrdered By: Ming Childress on 04-02-2023 Hematocrit (Bld) [Volume fraction] 36.1 % Normal 34.0-46.4 [facility] Comment on above: Performed By: #### U HCG, ADDONUAPLUS #### [address] Hemoglobin [Mass/volume] in BloodOrdered By: Ming Childress on 04-02-2023 Hemoglobin (Bld) [Mass/Vol] 11.5 g/dL Low 11.8-15.4 [facility] Comment on above: Performed By: #### U HCG, ADDONUAPLUS #### [address] [place] [address] [place] Hypochromia LM Ql (Bld)Order ed By: Ming Childress on 04-02-2023 Hypochromia Ql (Bld) Slight [facility] Ketones Auto test strip (U) [Mass/Vol]Ordered By: Ming Childress on 04-02-2023 Ketones (U) [Mass/Vol] Trace Negative [facility] - UrinalysisOrder ed By: Ming Childress on 04-02-2023 Hyaline casts LM Ql (Urine sed) 0-8 [LPF] 0-8 [facility] Leukocytes [#/volume] correc flo for nucleated erythrocytes in Blood by Automated counOrdered By: Ming Childress on 04-02-2023 WBC corrected for nucl RBC Auto (Bld) [#/Vol] 6.8 10*3/uL 3.8-11.6 [facility] Leukocytes [#/volume] in Blo od by Automated countOrdered By: Ming Childress on 04-02-2023 WBC (Bld) [#/Vol] 6.8 10*3/uL Normal 3.8-11.6 [facility] Comment on above: Performed By: #### U HCG, ADDONUAPLUS #### [facility] [address] [place] [address] Lymphocytes Auto (Bld) [#/Vo l]Ordered By: Ming Childress on 04-02-2023 Lymphocytes (Bld) [#/Vol] N/A [facility] Lymphocytes/100 WBC Auto (Bl d)Ordered By: Ming Childress on 04-02-2023 Lymphocytes/100 WBC (Bld) N/A [facility] Lymphocytes/100 leukocytes i n Blood by Manual countOrdered By: Ming Childress on 04-02-2023 Lymphocytes/100 WBC (Bld) 43 % High 18-42 [facility] Comment on above: Performed By: #### U HCG, ADDONUAPLUS #### [facility] [address] [place] [address] [place] MCH [Entitic mass] by Automa flo countOrdered By: Ming Childress on 04-02-2023 MCH (RBC) [Entitic mass] 24.5 pg Low 24.7-34.3 [facility] Comment on above: Performed By: #### U HCG, ADDONUAPLUS #### [facility] [address] [place] [address] MCHC Auto (RBC) [Mass/Vol]Or dered By: Ming Childress on 04-02-2023 MCHC (RBC) [Mass/Vol] 31.8 g/dL 32.0-35.0 [facility] MCV [Entitic volume] by Auto mated countOrdered By: Ming Childress on 04-02-2023 MCV (RBC) [Entitic vol] 77.3 fL Low 80-100 [facility] Comment on above: Performed By: #### U HCG, ADDONUAPLUS #### [facility] [address] [place] [address] Manual blood segmented neutr ophils/100 leukocytesOrdered By: Ming Childress on 04-02-2023 Segmented neutrophils/100 WBC (Bld) 47 % Low 50-70 [facility] Comment on above: Performed By: #### U HCG, ADDONUAPLUS #### [facility] [address] [place] [address] Monocyte distribution width [Entitic volume] in Blood by AutomatedOrdered By: Ming Childress on 04-02-2023 Monocyte distribution width Auto (Bld) [Entitic vol] 18.83 % 0.00-20.00 [facility] Monocytes Auto (Bld) [#/Vol] Ordered By: Ming Childress on 04-02-2023 Monocytes (Bld) [#/Vol] N/A [facility] Monocytes/100 WBC Auto (Bld) Ordered By: Ming Childress on 04-02-2023 Monocytes/100 WBC (Bld) N/A [facility] Monocytes/100 leukocytes in Blood by Manual countOrdered By: Ming Childress on 04-02-2023 Monocytes/100 WBC (Bld) 5 % Normal 2-11 [facility] Comment on above: Performed By: #### U HCG, ADDONUAPLUS #### [facility] [address] Neutrophils Auto (Bld) [#/Vo l]Ordered By: Ming Childress on 04-02-2023 Neutrophils (Bld) [#/Vol] N/A [facility] Neutrophils/100 WBC Auto (Bl d)Ordered By: Ming Childress on 04-02-2023 Neutrophils/100 WBC (Bld) N/A [facility] Nitrite Test strip Ql (U)Ord ered By: Ming Childress on 04-02-2023 Nitrite Ql (U) Negative Negative [facility] No Panel InformationOrdered By: Ming Childress on 04-02-2023 Estimated GFR (CKD-EPI) > 60.0 mL/Min [facility] Creatinine Clearance (Chem 97.72 [facility] Nucleated RBC/100 WBC Manual cnt (Bld) [Ratio]Ordered By: Ming Childress on 04-02-2023 Nucleated RBC/100 WBC (Bld) [Ratio] 3 /100{WBC} 0-0 [facility] Nucleated erythrocytes [Pres ence] in Blood by Automated countOrdered By: Ming Childress on 04-02-2023 Nucleated RBC Auto Ql (Bld) N/A [facility] Ovalocyte detectionOrdered B y: Ming Childress on 04-02-2023 Ovalocytes LM Ql (Bld) Slight Fi relaFormerly [facility] Platelet adequacy [Presence] in Blood by Light microscopyOrdered By: Ming Childress on 04-02-2023 Platelets LM Ql (Bld) Increased Normal [facility] Platelet mean volume [Entiti c volume] in Blood by Automated countOrdered By: Ming Childress on 04-02-2023 Platelet mean volume (Bld) [Entitic vol] 8.1 fL Normal 6.3-10.7 [facility] Comment on above: Result Comment: PERF ORMED BY: [facility] [address] [place] [address] PATHOLOGIST VARNISH BLENDER FARNAZ ZULETA M.D. Performed By: #### U HCG, ADDONUAPLUS #### [facility] [address] [place] [address] Platelet morphology finding [Identifier] in BloodOrdered By: Ming Childress on 04-02-2023 Platelet morphology finding Nom (Bld) Normal Normal [facility] Platelets [#/volume] in Bloo d by Automated countOrdered By: Ming Childress on 04-02-2023 Platelets (Bld) [#/Vol] 492 10*3/uL High 150-450 [facility] Comment on above: Performed By: #### U HCG, ADDONUAPLUS #### [address] Poikilocytosis [Presence] in Blood by Light microscopyOrdered By: Ming Childress on 04-02-2023 Poikilocytosis LM Ql (Bld) Slight [facility] Polychromasia [Presence] in Blood by Light microscopyOrdered By: Ming Childress on 04-02-2023 Polychromasia LM Ql (Bld) Moderate [facility] Potassium [Moles/volume] in Serum or PlasmaOrdered By: Ming Childress on 04-02-2023 Potassium [Moles/Vol] 3.7 mmol/L Normal 3.5-5.1 [facility] Comment on above: Performed By: #### U HCG, ADDONUAPLUS #### [address] Protein Auto test strip (U) [Mass/Vol]Ordered By: Ming Childress on 04-02-2023 Protein (U) [Mass/Vol] Negative Negative [facility] RBC morphologyOrdered By: Carmen ttvicky Childress on 04-02-2023 RBC morphology finding Nom (Bld) N/A [facility] Serum or plasma anion gap de terminationOrdered By: Ming Childress on 04-02-2023 Anion gap [Moles/Vol] 14.2 mmol/L Normal 6.0-15.0 [facility] Comment on above: Performed By: #### U HCG, ADDONUAPLUS #### [address] [place] [address] [place] Smudge cell detectionOrdered By: Ming Childress on 04-02-2023 Smudge cells LM Ql (Bld) [facility] Sodium [Moles/volume] in Ser um or PlasmaOrdered By: Ming Childress on 04-02-2023 Sodium [Moles/Vol] 137 mmol/L Normal 136-145 [facility] Comment on above: Performed By: #### U HCG, ADDONUAPLUS #### [facility] [address] [place] [address] Specific gravity Auto test s trip (U) [Rel density]Ordered By: Ming Childress on 04-02-2023 Specific gravity (U) [Rel density] 1.018 1.001-1.030 [facility] Squamous epithelial cells de tection in urine sediment by light microscopyOrdered By: Ming Childress on 04-02-2023 Epithelial cells.squamous LM Ql (Urine sed) 3-4 [HPF] 0-2 [facility] Toxic leukocyte vacuolation detectionOrdered By: Ming Childress on 04-02-2023 Leukocyte toxic vacuoles LM Ql (Bld) Slight [facility] Urea nitrogen [Mass/volume] in Serum or PlasmaOrdered By: Ming Childress on 04-02-2023 Urea nitrogen [Mass/Vol] 9 mg/dL Normal 7-25 [facility] Comment on above: Performed By: #### U HCG, ADDONUAPLUS #### [facility] [address] [place] [address] Urine bacteria detection by automated methodOrdered By: Ming Childress on 04-02-2023 Bacteria Auto Ql (U) None seen None Seen [facility] Urine clarity by refractomet ry automatedOrdered By: Ming Childress on 04-02-2023 Clarity Refractometry automated (U) Clear Clear [facility] Urine glucose measurement by automated test strip (mass/volume)Ordered By: Ming Childress on 04-02-2023 Glucose Auto test strip (U) [Mass/Vol] Normal mg/dL Normal [facility] Urine hemoglobin detection b y automated test stripOrdered By: Ming Childress on 04-02-2023 Hemoglobin Auto test strip Ql (U) 3+ Negative [facility] Urine leukocyte esterase det ection by automated test stripOrdered By: Ming Childress on 04-02-2023 Leukocyte esterase Auto test strip Ql (U) 1+ Negative [facility] Urine pH measurement by auto mated test stripOrdered By: Ming Childress on 04-02-2023 pH (U) 6.0 [pH] Normal 5.0-9.0 [facility] Comment on above: Order Comment: Name Collection Type:: Clean-Voided Midstream Performed By: #### U HCG, ADDONUAPLUS #### [facility] [address] Urobilinogen Auto test strip (U) [Mass/Vol]Ordered By: Ming Childress on 04-02-2023 Urobilinogen (U) [Mass/Vol] Normal mg/dL Normal [facility] Alanine aminotransferase [En zymatic activity/volume] in Serum or PlasmaOrdered By: Ming Childress on 03-29-2023 ALT [Catalytic activity/Vol] 14 U/L Normal 7-52 [facility] Comment on above: Performed By: #### B MP, LIPASE, HEPATIC #### [facility] [address] [place] [address] [place] Albumin [Mass/volume] in Ser um or Plasma by Bromocresol green (BCG) dye binding methoOrdered By: Ming Childress on 03-29-2023 Albumin BCG dye [Mass/Vol] 4.0 g/dL 3.5-5.7 [facility] Alkaline phosphatase [Enzyma tic activity/volume] in Serum or PlasmaOrdered By: Ming Childress on 03-29-2023 ALP [Catalytic activity/Vol] 61 U/L Normal 34-104 [facility] Comment on above: Performed By: #### B MP, LIPASE, HEPATIC #### [place] [address] [place] Aspartate aminotransferase [ Enzymatic activity/volume] in Serum or PlasmaOrdered By: Ming Childress on 03-29-2023 AST [Catalytic activity/Vol] 19 U/L Normal 13-39 [facility] Comment on above: Performed By: #### B MP, LIPASE, HEPATIC #### [facility] [address] [place] [address] Automated basophil %Ordered By: Ming Monroe on 03-29-2023 Basophils/100 WBC (Bld) 1.3 % Normal . F [facility] Comment on above: Performed By: #### U HCG, ADDONUAPLUS #### [address] Automated basophil countOrde red By: Ming Childress on 03-29-2023 Basophils (Bld) [#/Vol] 0.1 10*3/uL Normal 0.0-0.2 [facility] Comment on above: Result Comment: PERF ORMED BY: [place] [address] PATHOLOGIST VARNISH BLENDER FARNAZ ZULETA M.D. Performed By: #### U HCG, ADDONUAPLUS #### [address] Automated blood monocyte cou ntOrdered By: Ming Childress on 03-29-2023 Monocytes (Bld) [#/Vol] 0.6 10*3/uL Normal 0.0-0.8 [facility] Comment on above: Performed By: #### U HCG, ADDONUAPLUS #### [address] Automated eosinophil %Ordere d By: Ming Childress on 03-29-2023 Eosinophils/100 WBC (Bld) 1.8 % Normal . [facility] Comment on above: Performed By: #### U HCG, ADDONUAPLUS #### [address] Automated eosinophil countOr dered By: Ming Childress on 03-29-2023 Eosinophils (Bld) [#/Vol] 0.1 10*3/uL Normal 0.0-0.45 [facility] Comment on above: Performed By: #### U HCG, ADDONUAPLUS #### [address] Automated monocyte %Ordered By: Ming Childress on 03-29-2023 Monocytes/100 WBC (Bld) 7.3 % Normal . F [facility] Comment on above: Performed By: #### U HCG, ADDONUAPLUS #### [address] Automated neutrophil %Ordere d By: Ming Childress on 03-29-2023 Neutrophils/100 WBC (Bld) 46.8 % Normal . [facility] Comment on above: Performed By: #### U HCG, ADDONUAPLUS #### [address] Automated urine color determ inationOrdered By: Ming Childress on 03-29-2023 Color (U) Yellow Normal Yellow [facility] Comment on above: Order Comment: Name Collection Type:: Clean-Voided Midstream Performed By: #### H CGQNT #### [address] Basic Metabolic Panelon 03-13 Creatinine Clr Calc Pharmacy 134.47 Normal [facility] Comment on above: Performed By: #### B MP, LIPASE, HEPATIC #### [address] GFR/1.73 sq M.predicted MDRD (S/P/Bld) [Vol rate/Area] mL/min/{1.73_m2} Normal [facility] Comment on above: Performed By: #### B MP, LIPASE, HEPATIC #### [address] Bilirubin Test strip Ql (U)O rdered By: Ming Childress on 03-29-2023 Bilirubin Ql (U) Negative Negative [facility] Bilirubin.direct [Mass/volum e] in Serum or PlasmaOrdered By: Ming Childress on 03-29-2023 Bilirubin.direct [Mass/Vol] 0.10 mg/dL 0.03-0.18 [facility] Bilirubin.total [Mass/volume ] in Serum or PlasmaOrdered By: Ming Childress on 03-29-2023 Bilirubin [Mass/Vol] 0.3 mg/dL Normal 0.3-1.0 [facility] Comment on above: Performed By: #### B MP, LIPASE, HEPATIC #### [facility] [address] [place] [id number] [facility] CT abdomen pelvis w conon CT abdomen pelvis w con [facility] [address] [place] [address] [place] [address] CT Scan Report Signed Patient: Antonia Noyola MR#: [id number] : 1985 Acct:[id number] Age/Sex: 38 / F ADM Date: 03/29/23 Loc: Room: [address] [place] [address] Type: ADM IN Attending Dr: Christi Aquino [...] M.D.03/29/2023 7:14 AM Dictation Location: [place] [address] Transcribed By: [facility] 03/29/23713 Dictated By: Alesha Tejada MD 03/29/23709 Signed By: 03/29/23713 Normal [facility] Calcium [Mass/volume] in Ser um or PlasmaOrdered By: Ming Childress on 03-29-2023 Calcium [Mass/Vol] 8.9 mg/dL Normal 8.6-10.3 [facility] Comment on above: Performed By: #### B MP, LIPASE, HEPATIC #### [address] Carbon dioxide, total [Moles /volume] in Serum or PlasmaOrdered By: Ming Childress on 03-29-2023 CO2 [Moles/Vol] 22.2 mmol/L Normal 21.0-31.0 [facility] Comment on above: Performed By: #### B MP, LIPASE, HEPATIC #### [address] Chloride [Moles/volume] in S binu or PlasmaOrdered By: Ming Childress on 03-29-2023 Chloride [Moles/Vol] 107 mmol/L Normal 98-107 [facility] Comment on above: Performed By: #### B MP, LIPASE, HEPATIC #### [address] Complete Blood Count Auto Di ffon 03-29-2023 Mean Corpuscular HGB Conc 32.0 g/dL Normal 32.0-35.0 [facility] Comment on above: Performed By: #### U HCG, ADDONUAPLUS #### [address] NRBC% 0.1 /100{WBC} Normal 0-0.5 [facility] Comment on above: Performed By: #### U HCG, ADDONUAPLUS #### [address] Creatinine [Mass/volume] in Serum or PlasmaOrdered By: Ming Monroe on 03-29-2023 Creatinine [Mass/Vol] 0.63 mg/dL Normal 0.60-1.20 [facility] Comment on above: Performed By: #### B MP, LIPASE, HEPATIC #### [address] Erythrocyte distribution wid th [Ratio] by Automated countOrdered By: Ming Monroe on 03-29-2023 Erythrocyte distribution width (RBC) [Ratio] 15.2 % Normal 11.9-15.3 [facility] Comment on above: Performed By: #### U HCG, ADDONUAPLUS #### [address] Erythrocytes [#/volume] in B lood by Automated countOrdered By: Mingsil Childress on 03-29-2023 RBC (Bld) [#/Vol] 4.34 10*6/uL Normal 3.60-5.00 [facility] Comment on above: Performed By: #### U HCG, ADDONUAPLUS #### [address] Glucose [Mass/volume] in Ser um or PlasmaOrdered By: Ming Childress on 03-29-2023 Glucose [Mass/Vol] 90 mg/dL Normal 70-100 [facility] Comment on above: ADA recommended refe rence rangeRandom Glucose Reference Range is dependent on time and content of last meal. Glucose of more than 200 mg/dL in a nonstressed, ambulatory subject supports the diagnosis of Diabetes Mellitus. Result Comment: [place] Glucose Reference Range is dependent on time and content of last meal. Glucose of more than 200 mg/dL in a nonstressed, ambulatory subject supports the diagnosis of Diabetes Mellitus. ADA recommended reference range Performed By: #### B MP, LIPASE, HEPATIC #### [address] HCG ( test) IA.rapi d Ql (U)Ordered By: Ming Childress on 03-29-2023 HCG ( test) Ql (U) Negative [facility] HCG,Urineon 03-29-2023 Beta HCG ( test) Ql (U) Negative Normal [facility] Comment on above: Order Comment: Name Collection Type:: Clean-Voided Midstream Result Comment: PERF ORMED BY: [place] [address] PATHOLOGIST VARNISH BLENDER FARNAZ ZULETA M.D. Performed By: #### H CGQNT #### [address] Hematocrit [Volume Fraction] of Blood by Automated countOrdered By: Ming Childress on 03-29-2023 Hematocrit (Bld) [Volume fraction] 32.6 % Low 34.0-46.4 [facility] Comment on above: Performed By: #### U HCG, ADDONUAPLUS #### [address] Hemoglobin [Mass/volume] in BloodOrdered By: Ming Childress on 03-29-2023 Hemoglobin (Bld) [Mass/Vol] 10.4 g/dL Low 11.8-15.4 [facility] Comment on above: Performed By: #### U HCG, ADDONUAPLUS #### [address] Hepatic Panelon 03-29-2023 Albumin [Mass/Vol] 4.0 g/dL Normal 3.5-5.7 [facility] Comment on above: Performed By: #### B MP, LIPASE, HEPATIC #### [place] [address] [place] Bilirubin,Indirect 0.2 mg/dL Normal [facility] Comment on above: Performed By: #### B MP, LIPASE, HEPATIC #### [address] Bilirubin.indirect [Mass/Vol] 0.10 mg/dL Normal 0.03-0.18 [facility] Comment on above: Performed By: #### B MP, LIPASE, HEPATIC #### [facility] [address] Ketones Auto test strip (U) [Mass/Vol]Ordered By: Ming Childress on 03-29-2023 Ketones (U) [Mass/Vol] Negative Negative [facility] Lactate [Moles/volume] in Se rum or PlasmaOrdered By: Megan Muniz on 03-29-2023 Lactate [Moles/Vol] 0.8 mmol/L Normal 0.5-2.2 [facility] Comment on above: Result Comment: PERF ORMED BY: [place] [address] PATHOLOGIST VARNISH [employer]ENDER FARNAZ ZULETA M.D. Performed By: #### H CGQNT #### [facility] [address] [place] [address] Leukocytes [#/volume] correc flo for nucleated erythrocytes in Blood by Automated counOrdered By: Ming Childress on 03-29-2023 WBC corrected for nucl RBC Auto (Bld) [#/Vol] 7.5 10*3/uL 3.8-11.6 [facility] Leukocytes [#/volume] in Blo od by Automated countOrdered By: Ming Childress on 03-29-2023 WBC (Bld) [#/Vol] 7.5 10*3/uL Normal 3.8-11.6 [facility] Comment on above: Performed By: #### U HCG, ADDONUAPLUS #### [facility] [address] [place] [address] Lipase [Enzymatic activity/v olume] in Serum or PlasmaOrdered By: Ming Childress on 03-29-2023 Lipase [Catalytic activity/Vol] 30.0 U/L Normal 11.0-82.0 [facility] Comment on above: Result Comment: PERF ORMED BY: [place] [address] PATHOLOGIST VARNISH [employer]ENDER FARNAZ ZULETA M.D. Performed By: #### B MP, LIPASE, HEPATIC #### [facility] [address] [place] [address] Lymphocytes [#/volume] in Bl ood by Automated countOrdered By: Ming Childress on 03-29-2023 Lymphocytes (Bld) [#/Vol] 3.2 10*3/uL Normal 1.00-4.8 [facility] Comment on above: Performed By: #### U HCG, ADDONUAPLUS #### [address] Lymphocytes/100 leukocytes i n Blood by Automated countOrdered By: Ming Childress on 03-29-2023 Lymphocytes/100 WBC (Bld) 42.8 % Normal . [facility] Comment on above: Performed By: #### U HCG, ADDONUAPLUS #### [address] MCH [Entitic mass] by Automa flo countOrdered By: Ming Childress on 03-29-2023 MCH (RBC) [Entitic mass] 24.1 pg Low 24.7-34.3 [facility] Comment on above: Performed By: #### U HCG, ADDONUAPLUS #### [address] MCHC Auto (RBC) [Mass/Vol]Or dered By: Ming Childress on 03-29-2023 MCHC (RBC) [Mass/Vol] 32.0 g/dL 32.0-35.0 [facility] MCV [Entitic volume] by Auto mated countOrdered By: Ming Childress on 03-29-2023 MCV (RBC) [Entitic vol] 75.2 fL Low 80-100 [facility] Comment on above: Performed By: #### U HCG, ADDONUAPLUS #### [address] Neutrophils [#/volume] in Bl ood by Automated countOrdered By: Ming Childress on 03-29-2023 Neutrophils (Bld) [#/Vol] 3.5 10*3/uL Normal 1.8-7.7 [facility] Comment on above: Performed By: #### U HCG, ADDONUAPLUS #### [facility] [address] [place] [address] Nitrite Test strip Ql (U)Ord ered By: Ming Childress on 03-29-2023 Nitrite Ql (U) Negative Negative [facility] No Panel InformationOrdered By: Ming Childress on 03-29-2023 Estimated GFR (CKD-EPI) > 60.0 mL/Min [facility] Creatinine Clearance (Chem 134.47 [facility] Nucleated erythrocytes [Pres ence] in Blood by Automated countOrdered By: Ming Childress on 03-29-2023 Nucleated RBC Auto Ql (Bld) 0.1 /100{WBC} 0-0.5 [facility] Platelet mean volume [Entiti c volume] in Blood by Automated countOrdered By: Ming Childress on 03-29-2023 Platelet mean volume (Bld) [Entitic vol] 8.0 fL Normal 6.3-10.7 [facility] Comment on above: Performed By: #### U HCG, ADDONUAPLUS #### [facility] [address] [place] [address] Platelets [#/volume] in Bloo d by Automated countOrdered By: Ming Childress on 03-29-2023 Platelets (Bld) [#/Vol] 396 10*3/uL Normal 150-450 [facility] Comment on above: Performed By: #### U HCG, ADDONUAPLUS #### [facility] [address] [place] [address] Potassium [Moles/volume] in Serum or PlasmaOrdered By: Ming Childress on 03-29-2023 Potassium [Moles/Vol] 3.6 mmol/L Normal 3.5-5.1 [facility] Comment on above: Performed By: #### B MP, LIPASE, HEPATIC #### [facility] [address] [place] [address] Protein Auto test strip (U) [Mass/Vol]Ordered By: Ming Childress on 10-17-2023 Protein (U) [Mass/Vol] Negative Negative [facility] Protein [Mass/volume] in Ser um or PlasmaOrdered By: Ming Childress on 03-29-2023 Protein [Mass/Vol] 6.8 g/dL Normal 6.4-8.9 [facility] Comment on above: Performed By: #### B MP, LIPASE, HEPATIC #### [address] Serum globulin measurement b y calculation (mass/volume)Ordered By: Ming Childress on 03-29-2023 Globulin (S) [Mass/Vol] 2.8 g/dL Normal [facility] Comment on above: Performed By: #### B MP, LIPASE, HEPATIC #### [address] Serum or plasma albumin/glob ulin mass ratioOrdered By: Ming Childress on 03-29-2023 Albumin/Globulin [Mass ratio] 1.4 {ratio} Normal [facility] Comment on above: Performed By: #### B MP, LIPASE, HEPATIC #### [address] Serum or plasma anion gap de terminationOrdered By: Ming Childress on 03-29-2023 Anion gap [Moles/Vol] 12.4 mmol/L Normal 6.0-15.0 [facility] Comment on above: Performed By: #### B MP, LIPASE, HEPATIC #### [address] Serum or plasma non-glucuron idated bilirubin measurement (mass/volume)Ordered By: Ming Childress on 03-29-2023 Bilirubin.indirect [Mass/Vol] 0.2 mg/dL [facility] Sodium [Moles/volume] in Ser um or PlasmaOrdered By: Ming Childress on 03-29-2023 Sodium [Moles/Vol] 138 mmol/L Normal 136-145 [facility] Comment on above: Performed By: #### B MP, LIPASE, HEPATIC #### [address] Specific gravity Auto test s trip (U) [Rel density]Ordered By: Ming Childress on 03-29-2023 Specific gravity (U) [Rel density] 1.003 1.001-1.030 [facility] US transvaginalon 03-29-2023 US transvaginal [facility] [place] [address] [place] [address] Ultrasound Report Signed Patient: Antonia Noyola MR#: [id number] [id number] : 1985 Acct:[id number] Age/Sex: 38 / F ADM Date: 03/29/23 Loc: Room: [address] [place] [address] Type: ADM IN Attending Dr: Christi Aquino MD Ordering Provider: Ming Childress DO Date of Service: 03/29/23 US/US transvaginal: r/o L ovarian torsion ([id number]) US/US pelvic complete: PAIN Copies to: DO [...] Davi Figueroa M.D.03/29/2023 8:20 AM Dictation Location: [place] [address] Tech: Brooke Hodge Transcribed By: [facility] 03/29/23819 Dictated By: Davi Figueroa DO 03/29/23815 Signed By: 03/29/23819 Normal [facility] Urea nitrogen [Mass/volume] in Serum or PlasmaOrdered By: Ming Childress on 03-29-2023 Urea nitrogen [Mass/Vol] 6 mg/dL Low 7-25 [facility] Comment on above: Performed By: #### B MP, LIPASE, HEPATIC #### [facility] [address] [place] [address] [place] Urinalysison 03-29-2023 Appearance (U) Clear Normal Clear [facility] Comment on above: Order Comment: Name Collection Type:: Clean-Voided Midstream Performed By: #### H CGQNT #### [place] [address] [place] Bilirubin,Urine Negative Normal Negative [facility] Comment on above: Order Comment: Name Collection Type:: Clean-Voided Midstream Performed By: #### H CGQNT #### [place] [address] [place] Glucose Ql (U) Normal Normal Normal [facility] Comment on above: Order Comment: Name Collection Type:: Clean-Voided Midstream Performed By: #### H CGQNT #### [address] Ketones Ql (U) Negative Normal Negative [facility] Comment on above: Order Comment: Name Collection Type:: Clean-Voided Midstream Performed By: #### H CGQNT #### [place] [address] [place] Leukocyte esterase Test strip Ql (U) Negative Normal Negative [facility] Comment on above: Order Comment: Name Collection Type:: Clean-Voided Midstream Performed By: #### H CGQNT #### [place] [address] [place] Nitrite,Urine Negative Normal Negative [facility] Comment on above: Order Comment: Name Collection Type:: Clean-Voided Midstream Performed By: #### H CGQNT #### [place] [address] [place] Occult Blood,Urine Negative Normal Negative [facility] Comment on above: Order Comment: Name Collection Type:: Clean-Voided Midstream Performed By: #### H CGQNT #### [place] [id number] [place] Protein,Urine Negative Normal Negative [facility] Comment on above: Order Comment: Name Collection Type:: Clean-Voided Midstream Performed By: #### H CGQNT #### [facility] [address] Specificy [place],Urine 1.003 Normal 1.001-1.030 [facility] Comment on above: Order Comment: Name Collection Type:: Clean-Voided Midstream Performed By: #### H CGQNT #### [facility] [address] Urobilinogen,Urine Normal Normal Normal [facility] Comment on above: Order Comment: Name Collection Type:: Clean-Voided Midstream Performed By: #### H CGQNT #### [address] Urine clarity by refractomet ry automatedOrdered By: Ming Childress on 03-29-2023 Clarity Refractometry automated (U) Clear Clear [facility] Urine glucose measurement by automated test strip (mass/volume)Ordered By: Ming Childress on 03-29-2023 Glucose Auto test strip (U) [Mass/Vol] Normal mg/dL Normal [facility] Urine hemoglobin detection b y automated test stripOrdered By: Ming Childress on 03-29-2023 Hemoglobin Auto test strip Ql (U) Negative Negative [facility] Urine leukocyte esterase det ection by automated test stripOrdered By: Ming Childress on 03-29-2023 Leukocyte esterase Auto test strip Ql (U) Negative Negative [facility] Urine pH measurement by auto mated test stripOrdered By: Ming Childress on 03-29-2023 pH (U) 7.5 [pH] Normal 5.0-9.0 [facility] Comment on above: Order Comment: Name Collection Type:: Clean-Voided Midstream Performed By: #### H CGQNT #### [address] Urobilinogen Auto test strip (U) [Mass/Vol]Ordered By: Ming Childress on 03-29-2023 Urobilinogen (U) [Mass/Vol] Normal mg/dL Normal [facility] Automated urine color determ inationOrdered By: Elier Jackson on 02-06-2023 Color (U) Yellow Normal Yellow [facility] Comment on above: Order Comment: Name Collection Type:: Clean-Voided Midstream Performed By: #### U Chi CG #### [facility] [address] Bilirubin Test strip Ql (U)O rdered By: Elier Jackson on 02-06-2023 Bilirubin Ql (U) Negative Negative [facility] CT abdomen pelvis w conon CT abdomen pelvis w con [facility] [place] [address] [place] [address] CT Scan Report Signed Patient: Antonia Noyola MR#: [id number] 757 : 1985 Acct:[id number] Age/Sex: 38 / F ADM Date: 02/05/23 Loc: ER Room: Type: [facility] ER Attending Dr: Copies to: Elier Jackson [...] Uterus is grossly unremarkable. No adnexal mass.] Peritoneum/Retroperito neum:No free air, free fluid or lymphadenopathy.[ Abd wall/Bones:Abdominal wall demonstrates no acute findings. Osseous structures demonstrate degenerative change.[ CT/CT abdomen pelvis w con IMPRESSION: No acute findings. Impression dictated by: Dennis Betancur Jr., D.O.02/06/2023 11:23 AM Dictation Location: [place] [address] Transcribed By: AMBER 02/06/23 1123 Dictated By: Dennis Betancur Jr, DO 02/06/23 1109 Signed By: 02/06/23 1123 Normal [facility] HCG ( test) IA.rapi d Ql (U)Ordered By: Elier Jackson on 02-06-2023 HCG ( test) Ql (U) Negative [facility] HCG,Urineon 02-06-2023 Beta HCG ( test) Ql (U) Negative Normal [facility] Comment on above: Order Comment: Name Collection Type:: Clean-Voided Midstream Result Comment: PERF ORMED BY: [place] [address] PATHOLOGIST VARNISH BLENDER FARNAZ ZULETA M.D. Performed By: #### U A, [facility] #### [address] Ketones Auto test strip (U) [Mass/Vol]Ordered By: Elier Jackson on 02-06-2023 Ketones (U) [Mass/Vol] Negative Negative [facility] Nitrite Test strip Ql (U)Ord ered By: Elier Jackson on 02-06-2023 Nitrite Ql (U) Negative Negative [facility] Protein Auto test strip (U) [Mass/Vol]Ordered By: Elier Jackson on 02-06-2023 Protein (U) [Mass/Vol] Negative Negative [facility] Specific gravity Auto test s trip (U) [Rel density]Ordered By: Elier Jackson on 02-06-2023 Specific gravity (U) [Rel density] 1.007 1.001-1.030 [facility] US pelvic completeon 023 US pelvic complete [facility] [place] [address] [place] [address] Ultrasound Report Signed Patient: Antonia Noyola MR#: [id number] : 1985 Acct:[id number] Age/Sex: 38 / F ADM Date: 02/05/23 Loc: ER Room: Type: [facility] ER Attending Dr: Ordering Provider: Elier Jackson DO Date of Service: 02/06/23 US/US pelvic complete: adnexa pain ([id number]) US/US transvaginal: . Copies to: Elier Jackson [...] ultrasound. Impression dictated by: Dennis Betancur Jr., DEbenezerOEbenezer02/06/2023 11:25 AM Dictation Location: [place] [address] Tech: Jada Webb Transcribed By: [facility] 02/06/23 1125 Dictated By: Dennis Betancur Jr, DO 02/06/23 1123 Signed By: 02/06/23 1125 Normal [facility] Urinalysison 02-06-2023 Appearance (U) Clear Normal Clear [facility] Comment on above: Order Comment: Name Collection Type:: Clean-Voided Midstream Performed By: #### U A, UHCG #### [facility] [address] [place] [id number] [facility] Bilirubin,Urine Negative Normal Negative [facility] Comment on above: Order Comment: Name Collection Type:: Clean-Voided Midstream Performed By: #### U A, UHCG #### [facility] [address] [place] [id number] [facility] Glucose Ql (U) Normal Normal Normal [facility] Comment on above: Order Comment: Name Collection Type:: Clean-Voided Midstream Performed By: #### U A, UHCG #### [address] Ketones Ql (U) Negative Normal Negative [facility] Comment on above: Order Comment: Name Collection Type:: Clean-Voided Midstream Performed By: #### U A, UHCG #### [address] Leukocyte esterase Test strip Ql (U) Negative Normal Negative [facility] Comment on above: Order Comment: Name Collection Type:: Clean-Voided Midstream Performed By: #### U A, UHCG #### [address] Nitrite,Urine Negative Normal Negative [facility] Comment on above: Order Comment: Name Collection Type:: Clean-Voided Midstream Performed By: #### U A, UHCG #### [address] Occult Blood,Urine Negative Normal Negative [facility] Comment on above: Order Comment: Name Collection Type:: Clean-Voided Midstream Performed By: #### U A, UHCG #### [address] Protein,Urine Negative Normal Negative [facility] Comment on above: Order Comment: Name Collection Type:: Clean-Voided Midstream Performed By: #### U A, UHCG #### [address] Specificy [place],Urine 1.007 Normal 1.001-1.030 [facility] Comment on above: Order Comment: Name Collection Type:: Clean-Voided Midstream Performed By: #### U A, UHCG #### [address] Urobilinogen,Urine Normal Normal Normal [facility] Comment on above: Order Comment: Name Collection Type:: Clean-Voided Midstream Performed By: #### U A, UHCG #### [facility] [address] [place] [id number] [facility] Urine clarity by refractomet ry automatedOrdered By: Elier Jackson on 02-06-2023 Clarity Refractometry automated (U) Clear Clear [facility] Urine glucose measurement by automated test strip (mass/volume)Ordered By: Elier Jackson on 02-06-2023 Glucose Auto test strip (U) [Mass/Vol] Normal mg/dL Normal [facility] Urine hemoglobin detection b y automated test stripOrdered By: Elier Jackson on 02-06-2023 Hemoglobin Auto test strip Ql (U) Negative Negative [facility] Urine leukocyte esterase det ection by automated test stripOrdered By: Elier Jackson on 02-06-2023 Leukocyte esterase Auto test strip Ql (U) Negative Negative [facility] Urine pH measurement by auto mated test stripOrdered By: Elier Jackson on 02-06-2023 pH (U) 7.0 [pH] Normal 5.0-9.0 [facility] Comment on above: Order Comment: Name Collection Type:: Clean-Voided Midstream Performed By: #### U A, UHCG #### [facility] [address] [place] [address] Urobilinogen Auto test strip (U) [Mass/Vol]Ordered By: Elier Jackson on 02-06-2023 Urobilinogen (U) [Mass/Vol] Normal mg/dL Normal [facility] Alanine aminotransferase [En zymatic activity/volume] in Serum or PlasmaOrdered By: Elier Jackson on 02-05-2023 ALT [Catalytic activity/Vol] 13 U/L Normal 7-52 [facility] Comment on above: Performed By: #### H CGQNT #### [facility] [address] [place] [address] [place] Albumin [Mass/volume] in Ser um or Plasma by Bromocresol green (BCG) dye binding methoOrdered By: Elier Jackson on 02-05-2023 Albumin BCG dye [Mass/Vol] 4.2 g/dL 3.5-5.7 [facility] Alkaline phosphatase [Enzyma tic activity/volume] in Serum or PlasmaOrdered By: Elier Jackson on 02-05-2023 ALP [Catalytic activity/Vol] 52 U/L Normal 34-104 [facility] Comment on above: Performed By: #### H CGQNT #### [address] Aspartate aminotransferase [ Enzymatic activity/volume] in Serum or PlasmaOrdered By: Elier Jackson on 02-05-2023 AST [Catalytic activity/Vol] 12 U/L Low 13-39 [facility] Comment on above: Performed By: #### H CGQNT #### [address] Automated basophil %Ordered By: Elier Jackson on 02-05-2023 Basophils/100 WBC (Bld) 1.4 % Normal . [facility] Comment on above: Performed By: #### H EPATIC, LIPASE, BMP, CBC #### [address] Automated basophil countOrde red By: Elier Jackson on 02-05-2023 Basophils (Bld) [#/Vol] 0.1 10*3/uL Normal 0.0-0.2 [facility] Comment on above: Result Comment: PERF ORMED BY: [place] [address] PATHOLOGIST VARNISH BLENDER FARNAZ ZULETA M.D. Performed By: #### H EPATIC, LIPASE, BMP, CBC #### [address] Automated blood monocyte cou ntOrdered By: Elier Jackson on 02-05-2023 Monocytes (Bld) [#/Vol] 0.7 10*3/uL Normal 0.0-0.8 [facility] Comment on above: Performed By: #### H EPATIC, LIPASE, BMP, CBC #### [address] Automated eosinophil %Ordere d By: Elier Jackson on 02-05-2023 Eosinophils/100 WBC (Bld) 1.5 % Normal . [facility] Comment on above: Performed By: #### H EPATIC, LIPASE, BMP, CBC #### [facility] [address] Automated eosinophil countOr dered By: Elier Jackson on 02-05-2023 Eosinophils (Bld) [#/Vol] 0.1 10*3/uL Normal 0.0-0.45 [facility] Comment on above: Performed By: #### H EPATIC, LIPASE, BMP, CBC #### [address] Automated monocyte %Ordered By: Elier Jackson on 02-05-2023 Monocytes/100 WBC (Bld) 8.4 % Normal . [facility] Comment on above: Performed By: #### H EPATIC, LIPASE, BMP, CBC #### [address] Automated neutrophil %Ordere d By: Elier Jackson on 02-05-2023 Neutrophils/100 WBC (Bld) 44.4 % Normal . [facility] Comment on above: Performed By: #### H EPATIC, LIPASE, BMP, CBC #### [address] Basic Metabolic Panelon 01-12 Creatinine Clr Calc Pharmacy 115.62 Normal [facility] Comment on above: Performed By: #### H CGQNT #### [address] GFR/1.73 sq M.predicted MDRD (S/P/Bld) [Vol rate/Area] mL/min/{1.73_m2} Normal [facility] Comment on above: Performed By: #### H CGQNT #### [address] Bilirubin.direct [Mass/volum e] in Serum or PlasmaOrdered By: Elier Jackson on 02-05-2023 Bilirubin.direct [Mass/Vol] 0.10 mg/dL 0.03-0.18 [facility] Bilirubin.total [Mass/volume ] in Serum or PlasmaOrdered By: Elier Jackson on 02-05-2023 Bilirubin [Mass/Vol] 0.3 mg/dL Normal 0.3-1.0 [facility] Comment on above: Performed By: #### H CGQNT #### [facility] [address] [place] [address] [place] Calcium [Mass/volume] in Ser um or PlasmaOrdered By: Elier Jackson on 02-05-2023 Calcium [Mass/Vol] 9.2 mg/dL Normal 8.6-10.3 [facility] Comment on above: Performed By: #### H CGQNT #### [facility] [address] Carbon dioxide, total [Moles /volume] in Serum or PlasmaOrdered By: Elier Jackson on 02-05-2023 CO2 [Moles/Vol] 21.5 mmol/L Normal 21.0-31.0 [facility] Comment on above: Performed By: #### H CGQNT #### [facility] [address] [place] [address] [place] Chloride [Moles/volume] in S binu or PlasmaOrdered By: Elier Jackson on 02-05-2023 Chloride [Moles/Vol] 107 mmol/L Normal 98-107 [facility] Comment on above: Performed By: #### H CGQNT #### [facility] [address] Choriogonadotropin.beta subu nit [Units/volume] in Serum or PlasmaOrdered By: Eiler Jackson on 02-05-2023 HCG.beta subunit Qn m[IU]/mL [facility] Comment on above: Approximate Approxim ate hCG Gestational Age Range (mIU/ml) (weeks)0.2-1 5-50 1-2 50-500 2-3 100-5,000 3-4 500-10,000 4-5 1,000-50,000 5-6 10,000-100,000 6-8 15,000-200,000 8-12 10,000-100,000 HCG.beta subunit Qn Negative [facility] Complete Blood Count Auto Di ffon 02-05-2023 Mean Corpuscular HGB Conc 31.8 g/dL Low 32.0-35.0 [facility] Comment on above: Performed By: #### H EPATIC, LIPASE, BMP, CBC #### [address] Monocytes/100 WBC (Bld) 17.33 % Normal 0.00-20.00 T ry[facility] Comment on above: Performed By: #### H EPATIC, LIPASE, BMP, CBC #### [address] NRBC% 0.1 /100{WBC} Normal 0-0.5 [facility] Comment on above: Performed By: #### H EPATIC, LIPASE, BMP, CBC #### [address] Creatinine [Mass/volume] in Serum or PlasmaOrdered By: Elier Jackson on 02-05-2023 Creatinine [Mass/Vol] 0.71 mg/dL Normal 0.60-1.20 [facility] Comment on above: Performed By: #### H CGQNT #### [address] Erythrocyte distribution wid th [Ratio] by Automated countOrdered By: Elier Jackson on 02-05-2023 Erythrocyte distribution width (RBC) [Ratio] 15.9 % High 11.9-15.3 [facility] Comment on above: Performed By: #### H EPATIC, LIPASE, BMP, CBC #### [address] Erythrocytes [#/volume] in B lood by Automated countOrdered By: Elier Jackson on 02-05-2023 RBC (Bld) [#/Vol] 4.78 10*6/uL Normal 3.60-5.00 [facility] Comment on above: Performed By: #### H EPATIC, LIPASE, BMP, CBC #### [address] Glucose [Mass/volume] in Ser um or PlasmaOrdered By: Elier Jackson on 02-05-2023 Glucose [Mass/Vol] 99 mg/dL Normal 70-100 [facility] Comment on above: ADA recommended refe rence rangeRandom Glucose Reference Range is dependent on time and content of last meal. Glucose of more than 200 mg/dL in a nonstressed, ambulatory subject supports the diagnosis of Diabetes Mellitus. Result Comment: [place] Glucose Reference Range is dependent on time and content of last meal. Glucose of more than 200 mg/dL in a nonstressed, ambulatory subject supports the diagnosis of Diabetes Mellitus. ADA recommended reference range Performed By: #### H CGQNT #### [address] HCG,Qualitative Serumon 01-12 HCG,Qualitative Serum Negative Normal [facility] Comment on above: Result Comment: PERF ORMED BY: [place] [address] PATHOLOGIST VARNISH BLENDER FARNAZ ZULETA M.D. Performed By: #### U HCG, ADDONUAPLUS #### [address] HCG,Quantitativeon HCG,Quantitative < 0.60 Normal [facility] Comment on above: Result Comment: Appr oximate Approximate hCG Gestational Age Range (mIU/ml) (weeks) 0.2-1 5-50 1-2 50-500 2-3 100-5,000 3-4 500-10,000 4-5 1,000-50,000 5-6 10,000-100,000 6-8 15,000-200,000 8-12 10,000-100,000 PERFORMED BY: [place] [address] PATHOLOGIST VARNISH BLENDER FARNAZ ZULETA M.D. Performed By: #### H CGQNT #### [place] [id number] [facility] Hematocrit [Volume Fraction] of Blood by Automated countOrdered By: Elier Jackson on 02-05-2023 Hematocrit (Bld) [Volume fraction] 37.3 % Normal 34.0-46.4 [facility] Comment on above: Performed By: #### H EPATIC, LIPASE, BMP, CBC #### [facility] [address] [place] [address] Hemoglobin [Mass/volume] in BloodOrdered By: Elier Jackson on 02-05-2023 Hemoglobin (Bld) [Mass/Vol] 11.8 g/dL Normal 11.8-15.4 [facility] Comment on above: Performed By: #### H EPATIC, LIPASE, BMP, CBC #### [facility] [address] [place] [address] Hepatic Panelon 02-05-2023 Albumin [Mass/Vol] 4.2 g/dL Normal 3.5-5.7 [facility] Comment on above: Performed By: #### H CGQNT #### [address] Bilirubin,Indirect 0.2 mg/dL Normal [facility] Comment on above: Performed By: #### H CGQNT #### [address] Bilirubin.indirect [Mass/Vol] 0.10 mg/dL Normal 0.03-0.18 [facility] Comment on above: Performed By: #### H CGQNT #### [address] Leukocytes [#/volume] correc flo for nucleated erythrocytes in Blood by Automated counOrdered By: Elier Jackson on 02-05-2023 WBC corrected for nucl RBC Auto (Bld) [#/Vol] 8.1 10*3/uL 3.8-11.6 [facility] Leukocytes [#/volume] in Blo od by Automated countOrdered By: Elier Jackson on 02-05-2023 WBC (Bld) [#/Vol] 8.1 10*3/uL Normal 3.8-11.6 [facility] Comment on above: Performed By: #### H EPATIC, LIPASE, BMP, CBC #### [facility] [address] [place] [address] Lipase [Enzymatic activity/v olume] in Serum or PlasmaOrdered By: Elier Jackson on 02-05-2023 Lipase [Catalytic activity/Vol] 40.0 U/L Normal 11.0-82.0 [facility] Comment on above: Result Comment: PERF ORMED BY: [place] [address] PATHOLOGIST VARNISH BLENDER FARNAZ ZULETA M.D. Performed By: #### H CGQNT #### [address] Lymphocytes [#/volume] in Bl ood by Automated countOrdered By: Elier Jackson on 02-05-2023 Lymphocytes (Bld) [#/Vol] 3.6 10*3/uL Normal 1.00-4.8 [facility] Comment on above: Performed By: #### H EPATIC, LIPASE, BMP, CBC #### [address] Lymphocytes/100 leukocytes i n Blood by Automated countOrdered By: Elier Jackson on 02-05-2023 Lymphocytes/100 WBC (Bld) 44.3 % Normal . [facility] Comment on above: Performed By: #### H EPATIC, LIPASE, BMP, CBC #### [address] MCH [Entitic mass] by Automa flo countOrdered By: Elier Jackson on 02-05-2023 MCH (RBC) [Entitic mass] 24.8 pg Normal 24.7-34.3 [facility] Comment on above: Performed By: #### H EPATIC, LIPASE, BMP, CBC #### [address] MCHC Auto (RBC) [Mass/Vol]Or dered By: Elier Jackson on 02-05-2023 MCHC (RBC) [Mass/Vol] 31.8 g/dL 32.0-35.0 [facility] MCV [Entitic volume] by Auto mated countOrdered By: Elier Jackson on 02-05-2023 MCV (RBC) [Entitic vol] 78.1 fL Low 80-100 [facility] Comment on above: Performed By: #### H EPATIC, LIPASE, BMP, CBC #### [facility] [address] Monocyte distribution width [Entitic volume] in Blood by AutomatedOrdered By: Elier Jackson on 02-05-2023 Monocyte distribution width Auto (Bld) [Entitic vol] 17.33 % 0.00-20.00 [facility] Neutrophils [#/volume] in Bl ood by Automated countOrdered By: Elier Jackson on 02-05-2023 Neutrophils (Bld) [#/Vol] 3.6 10*3/uL Normal 1.8-7.7 [facility] Comment on above: Performed By: #### H EPATIC, LIPASE, BMP, CBC #### [facility] [address] [place] [address] No Panel InformationOrdered By: Elier Jackson on 02-05-2023 Estimated GFR (CKD-EPI) > 60.0 mL/Min [facility] Creatinine Clearance (Chem 115.62 [facility] Nucleated erythrocytes [Pres ence] in Blood by Automated countOrdered By: Elier Jackson on 02-05-2023 Nucleated RBC Auto Ql (Bld) 0.1 /100{WBC} 0-0.5 [facility] Platelet mean volume [Entiti c volume] in Blood by Automated countOrdered By: Elier Jackson on 02-05-2023 Platelet mean volume (Bld) [Entitic vol] 8.0 fL Normal 6.3-10.7 [facility] Comment on above: Performed By: #### H EPATIC, LIPASE, BMP, CBC #### [facility] [address] Platelets [#/volume] in Bloo d by Automated countOrdered By: Elier Jackson on 02-05-2023 Platelets (Bld) [#/Vol] 398 10*3/uL Normal 150-450 [facility] Comment on above: Performed By: #### H EPATIC, LIPASE, BMP, CBC #### [facility] [address] [place] [address] Potassium [Moles/volume] in Serum or PlasmaOrdered By: Elier Jackson on 02-05-2023 Potassium [Moles/Vol] 3.4 mmol/L Low 3.5-5.1 [facility] Comment on above: Performed By: #### H CGQNT #### [address] Protein [Mass/volume] in Ser um or PlasmaOrdered By: Elier Jackson on 02-05-2023 Protein [Mass/Vol] 7.2 g/dL Normal 6.4-8.9 [facility] Comment on above: Performed By: #### H CGQNT #### [address] Serum globulin measurement b y calculation (mass/volume)Ordered By: Elier Jackson on 02-05-2023 Globulin (S) [Mass/Vol] 3.0 g/dL Normal [facility] Comment on above: Performed By: #### H CGQNT #### [facility] [address] [place] [address] Serum or plasma albumin/glob ulin mass ratioOrdered By: Elier Jackson on 02-05-2023 Albumin/Globulin [Mass ratio] 1.4 {ratio} Normal [facility] Comment on above: Performed By: #### H CGQNT #### [address] Serum or plasma anion gap de terminationOrdered By: Elier Jackson on 02-05-2023 Anion gap [Moles/Vol] 11.9 mmol/L Normal 6.0-15.0 [facility] Comment on above: Performed By: #### H CGQNT #### [address] Serum or plasma non-glucuron idated bilirubin measurement (mass/volume)Ordered By: Elier Jackson on 02-05-2023 Bilirubin.indirect [Mass/Vol] 0.2 mg/dL [facility] Sodium [Moles/volume] in Ser um or PlasmaOrdered By: Elier Jackson on 02-05-2023 Sodium [Moles/Vol] 137 mmol/L Normal 136-145 [facility] Comment on above: Performed By: #### H CGQNT #### [facility] [address] [place] [id number] [facility] Urea nitrogen [Mass/volume] in Serum or PlasmaOrdered By: Elier Jackson on 02-05-2023 Urea nitrogen [Mass/Vol] 6 mg/dL Low 7-25 [facility] Comment on above: Performed By: #### H CGQNT #### [facility] [address] [place] [id number] [facility] GENITAL CULTUREon 08-01-2022 Genital Culture, Routine Final report Abnormal [facility] Comment on above: Result Comment: Spec imen stability note: A swab transport (ie., ESwab, Amies agar gel) received by the lab more than 24 hours after collection may result in reduced recovery of Neisseria gonorrhoeae (GC). (This is informational only and may not apply to this specimen.) Performed By: #### C XGENIT #### [facility] [address] [place] [address] Dr. Rod Ramirez Result 1 Comment Abnormal [facility] Comment on above: Result Comment: Beta hemolytic [...] (CLSI) Performed By: #### C XGENIT #### [facility] [address] [place] [address] Dr. Rod Ramirez Result 2 Comment Normal [facility] Comment on above: Result Comment: Rout ine genital rashid. Light growth Performed By: #### C XGENIT #### [facility] [address] [place] [address] Dr. Rod Ramirez CBC AUTO DIFFon 07-28-2022 BASO # 0.0 103/ul Normal 0.0-0.1 [facility] Comment on above: Performed By: #### C BC #### [facility] [address] [place] [address] Dr. Rod Ramirez Basophils/100 WBC (Bld) 0.4 % Normal 0.2-2.0 [facility] Comment on above: Performed By: #### C BC #### [facility] [address] [place] [address] Dr. Rod Ramirez EO # 0.1 103/ul Normal 0.0-0.7 [facility] Comment on above: Performed By: #### C BC #### [facility] [address] [place] [address] Dr. Rod Ramirez Eosinophils/100 WBC (Bld) 1.5 % Normal 0.9-7.0 [facility] Comment on above: Performed By: #### C BC #### [facility] [address] [place] [address] Dr. Rod Ramirez Erythrocyte distribution width (RBC) [Ratio] 12.9 % Normal 11.0-15.0 [facility] Comment on above: Performed By: #### C BC #### [facility] [address] [place] [address] Dr. Rod Ramirez Hematocrit (Bld) [Volume fraction] 40.9 % Normal 36.0-48.0 [facility] Comment on above: Performed By: #### C BC #### [facility] [address] [place] [address] Dr. Rod Ramirez Hemoglobin (Bld) [Mass/Vol] 13.7 g/dL Normal 12.0-16.0 [facility] Comment on above: Performed By: #### C BC #### [facility] [address] [place] [address] Dr. Rod Ramirez IG # 0.02 10e3/ul Normal 0.00-0.03 [facility] Comment on above: Performed By: #### C BC #### [facility] [address] [place] [address] Dr. Rod Ramirez IG % 0.3 % Normal 0.0-0.5 [facility] Comment on above: Performed By: #### C BC #### [facility] [address] [place] [address] [address] Rod Ramirez LYMPH # 1.6 103/ul Normal 1.2-3.8 [facility] Comment on above: Performed By: #### C BC #### [facility] [address] [place] [address] [address] Rod Ramirez Lymphocytes/100 WBC (Bld) 23.6 % Normal 20.5-60.0 [facility] Comment on above: Performed By: #### C BC #### [facility] [address] [place] [address] Dr. Rod Ramirez MANUAL DIFF REQ NO Normal [facility] Comment on above: Performed By: #### C BC #### [facility] [address] [place] [address] Dr. Rod Ramirez MCH (RBC) [Entitic mass] 27.7 pg Normal 26.7-34.0 [facility] Comment on above: Performed By: #### C BC #### [facility] [address] [place] [address] Dr. Rod Ramirez MCHC (RBC) [Mass/Vol] 33.5 g/dL Normal 29.9-35.2 [facility] Comment on above: Performed By: #### C BC #### [facility] [address] [place] [address] Dr. Rod Ramirez MCV (RBC) [Entitic vol] 82.6 fL Normal 81.0-99.0 [facility] Comment on above: Performed By: #### C BC #### [facility] [address] [place] [address] Dr. Rod Ramirez MONO # 0.4 103/ul Normal 0.3-0.8 [facility] Comment on above: Performed By: #### C BC #### [facility] [address] [place] [address] Dr. Rod Ramirez Monocytes/100 WBC (Bld) 6.4 % Normal 1.7-12.0 [facility] Comment on above: Performed By: #### C BC #### [facility] [address] [place] [address] Dr. Rod Ramirez NEUT # 4.6 103/ul Normal 1.4-6.5 [facility] Comment on above: Performed By: #### C BC #### [facility] [address] [place] [address] Dr. Rod Ramirez Neutrophils/100 WBC (Bld) 67.8 % Normal 43.0-75.0 [facility] Comment on above: Performed By: #### C BC #### [facility] [address] [place] [address] Dr. Rod Ramirez Platelet mean volume (Bld) [Entitic vol] 9.4 fL Critically low 9.5-13.5 [facility] Comment on above: Performed By: #### C BC #### [facility] [address] [place] [address] Dr. Rod Ramirez PLT 439 103/ul Normal 150-450 [facility] Comment on above: Performed By: #### C BC #### [facility] [address] [place] [address] Dr. Rod Ramirez RBC 4.95 106/ul Normal 4.20-5.40 [facility] Comment on above: Performed By: #### C BC #### [facility] [address] [place] [address] Dr. Rod Ramirez WBC 6.7 103/ul Normal 4.0-11.0 [facility] Comment on above: Performed By: #### C BC #### [facility] [address] [place] [address] Dr. Rod Ramirez PREG HCG QUALon 07-28-2022 , QUAL Negative Normal NEGATIVE [facility] Comment on above: Performed By: #### P REG #### [facility] [address] [place] [address] Dr. Rod Ramirez PROF CHEM 8 (BAS METB)on Anion gap [Moles/Vol] 15.5 mmol/L Normal [facility] Comment on above: Performed By: #### B MP #### [facility] [address] [place] [address] Dr. Rod Ramirez Calcium [Mass/Vol] 9.0 mg/dL Normal 8.5-10.1 [facility] Comment on above: Performed By: #### B MP #### [facility] [address] [place] [address] [address] Rod Ramirez Chloride [Moles/Vol] 103 mmol/L Normal 98-107 [facility] Comment on above: Performed By: #### B MP #### [facility] [address] [place] [address] [address] Rod Ramirez CO2 [Moles/Vol] 23.9 mmol/L Normal 21.0-32.0 [facility] Comment on above: Performed By: #### B MP #### [facility] [address] [place] [address] Dr. Rod Ramirez Creatinine [Mass/Vol] 0.79 mg/dL Normal 0.55-1.02 [facility] Comment on above: Performed By: #### B MP #### [facility] [address] [place] [address] [address] Rod Ramirez EGFR-AF KENYAN >60 Normal >=60 [facility] Comment on above: Performed By: #### B MP #### [facility] [address] [place] [address] [address] Rod Ramirez EGFR-NON AF KENYAN >60 Normal >=60 [facility] Comment on above: Performed By: #### B MP #### [facility] [address] [place] [address] [address] Rod Ramirez Glucose [Mass/Vol] 108 mg/dL Critically high 74-106 [facility] Comment on above: Performed By: #### B MP #### [facility] [address] [place] [address] [address] Rod Ramirez Potassium [Moles/Vol] 3.4 mmol/L Critically low 3.5-5.1 [facility] Comment on above: Performed By: #### B MP #### [facility] [address] [place] [address] [address] Rod Ramirez Sodium [Moles/Vol] 139 mmol/L Normal 136-145 [facility] Comment on above: Performed By: #### B MP #### [facility] [address] [place], [place] [address] Dr. Rod Ramirez Urea nitrogen [Mass/Vol] 7.0 mg/dL Normal 7.0-18.0 [facility] Comment on above: Performed By: #### B MP #### [facility] [address] [place] [address] [address] Rod Ramirez Urea nitrogen/Creatinine [Mass ratio] 8.9 mg/mg Normal [facility] Comment on above: Performed By: #### B MP #### [facility] [address] [place] [id number] Rod Ramirez US PELVIS TRANSVAGon 023 US PELVIS TRANSVAG EXAMINATION: US PELV IS TRANSVAG HISTORY: Cyst of left ovary COMPARISON: [...] AUBREY BURKS Date: 2022-07-28 07:46 Normal [facility] WET PREPon 07-28-2022 CLUE CELLS NONE SEEN Normal NONE SEEN [facility] Comment on above: Performed By: #### W P #### [facility] [address] [place], [place] [address] Dr. Rod Ramirez FUNGAL ELEMENTS NONE SEEN Normal NONE SEEN [facility] Comment on above: Performed By: #### W P #### [facility] [address] [place] [address] [address] Rod Ramirez RBC -WET PREP RARE Abnormal NONE SEEN [facility] Comment on above: Performed By: #### W P #### [facility] [address] [place] [address] [address] Rod Ramirez TRICHOMONAS NONE SEEN Normal NONE SEEN [facility] Comment on above: Performed By: #### W P #### [facility] [address] [place] [address] [address] Rod Ramirez WBC- WET PREP RARE Abnormal NONE SEEN [facility] Comment on above: Performed By: #### W P #### [facility] [address] [place] [address] [address] Rod Ramirez WET PREP BACTERIA NONE SEEN Normal NONE SEEN [facility] Comment on above: Performed By: #### W P #### [facility] [address] [place] [address] [address] Rod Morales 04-30-2022 CNPN Telephone (HEMASA) ANTONIA NOYOLA ([id number]) 1985 F Date Time Provider Department 04/30/22 MADYSON NI During your visit today, we recorded the following information about you: Tabby Steele Ma 04/30/2022 2:25 PM Signed CMP if needed. Tabby Steele Ma Allergies As of Date: 04/30/2022 Noted Allergy Reaction MORPHINE 06/20/2018 14 - Other: See Comments Comments: Spasms Date Reviewed: 04/09/2022 Reviewed by: Gloria Rivera RN - Fully Assessed Reason for Visit: Lab Orders [2628] Primary Visit Diagnosis:Iron deficiency anemia due to chronic blood loss [D50.0] Order(s):COMP METABOLIC PANEL [SQCMP] Order #: [id number] FUTURE Prescriptions as of 05/03/2022 - ALPRAZolam [...] of iron [K90.9] 10/27/2020 Encounter Status:Closed by MADYSON NI on 05/03/22 Normal [facility] Anisocytosis LM Ql (Bld)Orde red By: Yevgeniy Cabrera on 04-28-2022 Anisocytosis Ql (Bld) Marked [facility] Automated erythrocytes count in urine sediment (number/area)Ordered By: Yevgeniy Cabrera on 04-28-2022 RBC Auto (Urine sed) [#/Area] None seen [HPF] 0-4 [facility] Automated leukocytes count i n urine sediment (number/area)Ordered By: Yevgeniy Cabrera on 04-28-2022 WBC Auto (Urine sed) [#/Area] 3-4 [HPF] 0-4 [facility] Basophils Auto (Bld) [#/Vol] Ordered By: Yevgeniy Cabrera on 04-28-2022 Basophils (Bld) [#/Vol] 0.1 10*3/uL 0.0-0.2 [facility] Basophils/100 WBC Auto (Bld) Ordered By: Yevgeniy Cabrera on 04-28-2022 Basophils/100 WBC (Bld) 1.0 % . F [facility] Bilirubin Test strip Ql (U)O rdered By: Yevgeniy Cabrera on 04-28-2022 Bilirubin Ql (U) Negative Negative [facility] Body fluid albumin measureme nt (mass/volume)Ordered By: Yevgeniy Cabrera on 04-28-2022 Albumin (Body fld) [Mass/Vol] 3.8 g/dL 3.2-5.5 [facility] Color Auto (U)Ordered By: Marcus Cabrera on 04-28-2022 Color (U) Yellow Yellow [facility] Creatinine and Glomerular fi ltration rate.predicted panel (S/P/Bld)Ordered By: Yevgeniy Cabrera on 04-28-2022 Creatinine [Mass/Vol] 0.62 mg/dL 0.44-1.03 [facility] Eosinophils Auto (Bld) [#/Vo l]Ordered By: Yevgeniy Cabrera on 04-28-2022 Eosinophils (Bld) [#/Vol] 0.1 10*3/uL 0.0-0.45 [facility] Eosinophils/100 WBC Auto (Bl d)Ordered By: Yevgeniy Cabrera on 04-28-2022 Eosinophils/100 WBC (Bld) 1.0 % . [facility] Erythrocyte distribution wid th Auto (RBC) [Ratio]Ordered By: Yevgeniy Cabrera on 04-28-2022 Erythrocyte distribution width (RBC) [Ratio] 27.1 % 11.9-15.3 [facility] [facility] Estimated glomerular filtrat ion rate (GFR) non- AmericanOrdered By: Yevgeniy Cabrera on 04-28-2022 GFR/1.73 sq M.predicted among non-blacks MDRD (S/P/Bld) [Vol rate/Area] > 60 mL/Min [facility] Globulin Calc (S) [Mass/Vol] Ordered By: Yevgeniy Cabrera on 04-28-2022 Globulin (S) [Mass/Vol] 3.1 g/dL F [facility] HCG ( test) IA.rapi d Ql (U)Ordered By: Yevgeniy Cabrera on 04-28-2022 HCG ( test) Ql (U) Negative [facility] Hematocrit Auto (Bld) [Volum e fraction]Ordered By: Yevgeniy Cabrera on 04-28-2022 Hematocrit (Bld) [Volume fraction] 39.4 % 34.0-46.4 [facility] Hemoglobin [Mass/volume] in BloodOrdered By: Yevgeniy Cabrera on 04-28-2022 Hemoglobin (Bld) [Mass/Vol] 12.3 g/dL 11.8-15.4 [facility] Hypochromia LM Ql (Bld)Order ed By: Yevgeniy Cabrera on 04-28-2022 Hypochromia Ql (Bld) Slight [facility] Ketones Auto test strip (U) [Mass/Vol]Ordered By: Yevgeniy Cabrera on 04-28-2022 Ketones (U) [Mass/Vol] Negative Negative Fi [facility] Laboratory - Hematology and Cell countsOrdered By: Yevgeniy Cabrera on 04-28-2022 Nucleated RBC/100 WBC (Bld) [Ratio] 0.0 % 0-0.5 [facility] Laboratory - UrinalysisOrder ed By: Yevgeniy Cabrera on 04-28-2022 Hyaline casts LM Ql (Urine sed) None seen [LPF] 0-8 [facility] Leukocytes [#/volume] in Blo od by Automated countOrdered By: Yevgeniy Cabrera on 04-28-2022 WBC (Bld) [#/Vol] 7.9 10*3/uL 4.5-11.0 [facility] Lymphocytes Auto (Bld) [#/Vo l]Ordered By: Yevgeniy Cabrera on 04-28-2022 Lymphocytes (Bld) [#/Vol] 2.3 10*3/uL 1.00-4.8 [facility] Lymphocytes/100 WBC Auto (Bl d)Ordered By: Yevgeniy Cabrera on 04-28-2022 Lymphocytes/100 WBC (Bld) 28.9 % . [facility] MCH Auto (RBC) [Entitic mass ]Ordered By: Yevgeniy Cabrera on 04-28-2022 MCH (RBC) [Entitic mass] 23.3 pg 24.7-34.3 [facility] MCHC Auto (RBC) [Mass/Vol]Or dered By: Yevgeniy Cabrera on 04-28-2022 MCHC (RBC) [Mass/Vol] 31.3 g/dL 32.0-35.0 [facility] MCV Auto (RBC) [Entitic vol] Ordered By: Yevgeniy Cabrera on 04-28-2022 MCV (RBC) [Entitic vol] 74.5 fL 80-100 F [facility] Monocytes Auto (Bld) [#/Vol] Ordered By: Yevgeniy Cabrera on 04-28-2022 Monocytes (Bld) [#/Vol] 0.4 10*3/uL 0.0-0.8 [facility] Monocytes/100 WBC Auto (Bld) Ordered By: Yevgeniy Cabrera on 04-28-2022 Monocytes/100 WBC (Bld) 4.5 % . F [facility] Neutrophils Auto (Bld) [#/Vo l]Ordered By: Yevgeniy Cabrera on 04-28-2022 Neutrophils (Bld) [#/Vol] 5.1 10*3/uL 1.8-7.7 [facility] Neutrophils/100 WBC Auto (Bl d)Ordered By: Yevgeniy Cabrera on 04-28-2022 Neutrophils/100 WBC (Bld) 64.6 % . [facility] Nitrite Test strip Ql (U)Ord ered By: Yevgeniy Cabrera on 04-28-2022 Nitrite Ql (U) Negative Negative [facility] No Panel InformationOrdered By: Yevgeniy Cabrera on 04-28-2022 Estimated GFR () > 60 mL/Min [facility] Comment on above: GFR estimated refere nce range: According to KDOQI guidelines, <60 ml/min/1.73m2 is sufficient to diagnose a patient with chronic kidney disease. Pharmacy Creatinine Clearance (Chem 132.36 [facility] Slides for Pathologist Review Ordered path review [facility] Ovalocyte detectionOrdered B y: Yevgeniy Cabrera on 04-28-2022 Ovalocytes LM Ql (Bld) Moderate Fi relaFormerly [facility] Platelet adequacy [Presence] in Blood by Light microscopyOrdered By: Yevgeniy Cabrera on 04-28-2022 Platelets LM Ql (Bld) Normal Normal Fir [facility] Platelet mean volume Auto (B ld) [Entitic vol]Ordered By: Yevgeniy Cabrera on 04-28-2022 Platelet mean volume (Bld) [Entitic vol] 7.4 fL 6.3-10.7 [facility] Platelet morphology finding [Identifier] in BloodOrdered By: Yevgeniy Cabrera on 04-28-2022 Platelet morphology finding Nom (Bld) Normal Normal [facility] Platelets Auto (Bld) [#/Vol] Ordered By: Yevgeniy Cabrera on 04-28-2022 Platelets (Bld) [#/Vol] 329 10*3/uL 150-450 [facility] Poikilocytosis [Presence] in Blood by Light microscopyOrdered By: Yevgeniy Cabrera on 04-28-2022 Poikilocytosis LM Ql (Bld) Moderate [facility] Polychromasia [Presence] in Blood by Light microscopyOrdered By: Yevgeniy Cabrera on 04-28-2022 Polychromasia LM Ql (Bld) Slight [facility] Protein Auto test strip (U) [Mass/Vol]Ordered By: Yevgeniy Cabrera on 04-28-2022 Protein (U) [Mass/Vol] Negative Negative [facility] Protein [Mass/volume] in Ser um or PlasmaOrdered By: Yevgeniy Cabrera on 04-28-2022 Protein [Mass/Vol] 6.9 g/dL 6.1-7.9 [facility] RBC Auto (Bld) [#/Vol]Ordere d By: Yevgeniy Cabrera on 04-28-2022 RBC (Bld) [#/Vol] 5.29 10*6/uL 3.60-5.00 [facility] RBC morphologyOrdered By: Marcus Cabrera on 04-28-2022 RBC morphology finding Nom (Bld) N/A [facility] Serum or plasma alanine syed otransferase measurement without P-5'-P (enzymatic activiOrdered By: Yevgeniy Cabrera on 04-28-2022 ALT No additional P-5'-P [Catalytic activity/Vol] 43 U/L 10-60 [facility] Serum or plasma albumin/glob ulin mass ratioOrdered By: Yevgeniy Cabrera on 04-28-2022 Albumin/Globulin [Mass ratio] 1.2 {ratio} [facility] Serum or plasma alkaline zeeshan sphatase measurement (enzymatic activity/volume)Ordered By: Yevgeniy Cabrera on 04-28-2022 ALP [Catalytic activity/Vol] 65 U/L 32-92 [facility] Serum or plasma anion gap de terminationOrdered By: Yevgeniy Cabrera on 04-28-2022 Anion gap [Moles/Vol] 14.6 mmol/L 6.0-15.0 [facility] Serum or plasma aspartate am inotransferase measurement (enzymatic activity/volume)Ordered By: Yevgeniy Cabrera on 04-28-2022 AST [Catalytic activity/Vol] 26 U/L 10-42 [facility] Serum or plasma calcium donaldo urement (mass/volume)Ordered By: Yevgeniy Cabrera on 04-28-2022 Calcium [Mass/Vol] 9.3 mg/dL 8.2-10.2 [facility] Serum or plasma chloride claudia surement (moles/volume)Ordered By: Yevgeniy Cabrera on 04-28-2022 Chloride [Moles/Vol] 105 mmol/L 95-114 [facility] Serum or plasma glucose donaldo urement (mass/volume)Ordered By: Yevgeniy Cabrera on 04-28-2022 Glucose [Mass/Vol] 112 mg/dL 70-100 [facility] Comment on above: ADA recommended [...] on 04-28-2022 Sodium [Moles/Vol] 137 mmol/L 136-146 [facility] Serum or plasma total biliru bin measurement (mass/volume)Ordered By: Yevgeniy Cabrera on 04-28-2022 Bilirubin [Mass/Vol] 0.5 mg/dL 0.3-1.2 [facility] Serum or plasma total carbon dioxide measurement (moles/volume)Ordered By: Yevgeniy Cabrera on 04-28-2022 CO2 [Moles/Vol] 21.1 mmol/L 22.0-30.0 [facility] Serum or plasma urea nitroge n measurement (mass/volume)Ordered By: Yevgeniy Cabrera on 04-28-2022 Urea nitrogen [Mass/Vol] 5 mg/dL 9-23 [facility] Specific gravity Auto test s trip (U) [Rel density]Ordered By: Yevgeniy Cabrera on 04-28-2022 Specific gravity (U) [Rel density] 1.005 1.001-1.030 [facility] Squamous epithelial cells de tection in urine sediment by light microscopyOrdered By: Yevgeniy Cabrera on 04-28-2022 Epithelial cells.squamous LM Ql (Urine sed) 0-1 [HPF] 0-2 [facility] Teardrop cell detectionOrder ed By: Yevgeniy Cabrera on 04-28-2022 Dacrocytes LM Ql (Bld) Slight Fi relaFormerly [facility] Urine bacteria detection by automated methodOrdered By: Yevgeniy Cabrera on 04-28-2022 Bacteria Auto Ql (U) None seen None Seen [facility] Urine clarity by refractomet ry automatedOrdered By: Yevgeniy Cabrera on 04-28-2022 Clarity Refractometry automated (U) Cloudy Clear [facility] Urine glucose measurement by automated test strip (mass/volume)Ordered By: Yevgeniy Cabrera on 04-28-2022 Glucose Auto test strip (U) [Mass/Vol] Normal mg/dL Normal [facility] Urine hemoglobin detection b y automated test stripOrdered By: Yevgeniy Cabrera on 04-28-2022 Hemoglobin Auto test strip Ql (U) Negative Negative [facility] Urine leukocyte esterase det ection by automated test stripOrdered By: Yevgeniy Cabrera on 04-28-2022 Leukocyte esterase Auto test strip Ql (U) 1+ Negative [facility] Urobilinogen Auto test strip (U) [Mass/Vol]Ordered By: Yevgeniy Cabrera on 04-28-2022 Urobilinogen (U) [Mass/Vol] Normal mg/dL Normal [facility] pH Auto test strip (U)Ordere d By: Yevgeniy Cabrera on 04-28-2022 pH (U) 6.5 [pH] 5.0-9.0 [facility] ALLIED HEALTHon 04-09-2022 ALLIED HEALTH HNO ID: [id number] Author: Stephenie Suh, 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 Service: ? [...] SIGNATURE: Stephenie Suh, 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 PATIENT NAME: Antonia Noyola DATE: April 09, 2022 TIME: 2:21 PM [facility] Tele[facility] (NCCAP) ANTONIA NOYOLA ([id number]) 1985 F Date Time Provider Department 03/19/22 MADYSON NI During your visit today, we recorded the following information about you: Corbin Sememmy 03/19/2022 2:56 PM Signed Patient missed her scheduled Iron infusion today. Call placed to patient to get her rescheduled. No answer, left detailed message that I rescheduled another Venofer for her on the as DR wanted 3 weekly infusions. 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 Allergies As of Date: 03/19/2022 Noted Allergy Reaction MORPHINE 06/20/2018 14 - Other: See Comments Comments: Spasms Date Reviewed: 03/10/2022 Reviewed by: Madyson Ni APRN.[facility] - Fully Assessed Reason for Visit: [...] iron [K90.9] 10/27/2020 Encounter Status:Closed by [facility] SPARKLE JACOBSEN on 03/19/22 [facility] Andrew 03-15-2022 CNPN Telephone (HEMASA) ANTONIA NOYOLA ([id number]) 1985 F Date Time Provider Department 03/15/22 [...] Comments: Spasms Date Reviewed: 03/10/2022 Reviewed by: Madyson Ni APRN.[facility] - Fully Assessed Reason for Visit: [...] iron [K90.9] 10/27/2020 Encounter Status:Closed by SHARON GALAVZI on 03/15/22 [facility] CBC W Auto Differential pane l (Bld)on 03-10-2022 Basophils (Bld) [#/Vol] 0.05 10*3/uL Normal <0.11 [facility] Comment on above: Order Comment: Speci men Type: BLOOD SPECIMEN Ordering Facility: [facility] Address: [address] [place] [address] Performed By: #### 5 7021-8 #### [facility] CLIA [id number] [address] [place] [address]74 Basophils/100 WBC (Bld) 0.8 % Normal [facility] Comment on above: Order Comment: Speci men Type: BLOOD SPECIMEN Ordering Facility: [facility] Address: [address] [place] [address] Performed By: #### 5 7021-8 #### [facility] CLIA [id number] [address] [place] [address]3680 Differential cell count method Nom (Bld) Auto Normal [facility] Comment on above: Order Comment: Speci men Type: BLOOD SPECIMEN Ordering Facility: [facility] Address: [address] [place] [address] Performed By: #### 5 7021-8 #### [facility] CLIA [id number] [address] [place] [address]907 Eosinophils (Bld) [#/Vol] 0.15 10*3/uL Normal <0.46 [facility] Comment on above: Order Comment: Speci men Type: BLOOD SPECIMEN Ordering Facility: [facility] Address: [address] [place] [address] Performed By: #### 5 7021-8 #### [facility] CLIA [id number] [address] [place] [address] 27448 Eosinophils/100 WBC (Bld) 2.3 % Normal [facility] Comment on above: Order Comment: Speci men Type: BLOOD SPECIMEN Ordering Facility: [facility] Address: [address] [place] [address] Performed By: #### 5 7021-8 #### [facility] CLIA [id number] [address] [place] [address] Erythrocyte distribution width (RBC) [Ratio] 17.4 % High 11.5-15.0 [facility] Comment on above: Order Comment: Speci men Type: BLOOD SPECIMEN Ordering Facility: [facility] Address: [address] [place] [address] Performed By: #### 5 7021-8 #### [facility] CLIA [id number] [address] [place] [address]42 Hematocrit (Bld) [Volume fraction] 29.4 % Low 36.0-46.0 [facility] Comment on above: Order Comment: Speci men Type: BLOOD SPECIMEN Ordering Facility: [facility] Address: [address] [place] [address] Performed By: #### 5 7021-8 #### [facility] CLIA [id number] [address] [place] [address]4860 Hemoglobin (Bld) [Mass/Vol] 8.5 g/dL Low 11.5-15.5 [facility] Comment on above: Order Comment: Speci men Type: BLOOD SPECIMEN Ordering Facility: [facility] Address: [address] [place] [address] Performed By: #### 5 7021-8 #### [facility] CLIA [id number] [address] [place] [address] 78603 IMMATURE GRAN % 0.3 % Normal [facility] Comment on above: Order Comment: Speci men Type: BLOOD SPECIMEN Ordering Facility: [facility] Address: [address] [place] [address] Performed By: #### 5 7021-8 #### [facility] CLIA [id number] [address] [place] [address]1387 IMMATURE GRAN ABS <0.03 Normal <0.10 [facility] Comment on above: Order Comment: Speci men Type: BLOOD SPECIMEN Ordering Facility: [facility] Address: [address] [place] [address] Performed By: #### 5 7021-8 #### [facility] CLIA [id number] [address] [place] [address]051 Lymphocytes (Bld) [#/Vol] 3.62 10*3/uL Normal 1.00-4.00 [facility] Comment on above: Order Comment: Speci men Type: BLOOD SPECIMEN Ordering Facility: [facility] Address: [address] [place] [address] Performed By: #### 5 7021-8 #### [facility] CLIA [id number] [address] [place] [address]9701 Lymphocytes/100 WBC (Bld) 54.8 % Normal [facility] Comment on above: Order Comment: Speci men Type: BLOOD SPECIMEN Ordering Facility: [facility] Address: [address] [place] [address] Performed By: #### 5 7021-8 #### [facility] CLIA [id number] [address] [place] [address]12 MCH (RBC) [Entitic mass] 20.3 pg Low 26.0-34.0 [facility] Comment on above: Order Comment: Speci men Type: BLOOD SPECIMEN Ordering Facility: [facility] Address: [address] [place] [address] Performed By: #### 5 7021-8 #### [facility] CLIA [id number] [address] [place] [address] 40123 MCHC (RBC) [Mass/Vol] 28.9 g/dL Low 30.5-36.0 [facility] Comment on above: Order Comment: Speci men Type: BLOOD SPECIMEN Ordering Facility: [facility] Address: [address] [place] [address] Performed By: #### 5 7021-8 #### [facility] CLIA [id number] [address] [place] [address]1419 MCV (RBC) [Entitic vol] 70.3 fL Low 80.0-100.0 [facility] Comment on above: Order Comment: Speci men Type: BLOOD SPECIMEN Ordering Facility: [facility] Address: [address] [place], [place] [address] Performed By: #### 5 7021-8 #### [facility] CLIA [id number] [address] [place] [address] 87700 Monocytes (Bld) [#/Vol] 0.38 10*3/uL Normal <0.87 [facility] Comment on above: Order Comment: Speci men Type: BLOOD SPECIMEN Ordering Facility: [facility] Address: [address] [place], [place] [address] Performed By: #### 5 7021-8 #### [facility] CLIA [id number] [address] [place] [address] 96339 Monocytes/100 WBC (Bld) 5.7 % Normal [facility] Comment on above: Order Comment: Speci men Type: BLOOD SPECIMEN Ordering Facility: [facility] Address: [address] [place], [place] [address] Performed By: #### 5 7021-8 #### [facility] CLIA [id number] [address] [place] [address] 36359 Neutrophils (Bld) [#/Vol] 2.39 10*3/uL Normal 1.45-7.50 [facility] Comment on above: Order Comment: Speci men Type: BLOOD SPECIMEN Ordering Facility: [facility] Address: [address] [place], [place] [address] Performed By: #### 5 7021-8 #### [facility] CLIA [id number] [address] [place] [address]79 Neutrophils/100 WBC (Bld) 36.1 % Normal [facility] Comment on above: Order Comment: Speci men Type: BLOOD SPECIMEN Ordering Facility: [facility] Address: [address] [place], [place] [address] Performed By: #### 5 7021-8 #### [facility] CLIA [id number] [address] [place] [address] Nucleated RBC (Bld) [#/Vol] 10*3/uL Normal <0.01 [facility] Comment on above: Order Comment: Speci men Type: BLOOD SPECIMEN Ordering Facility: [facility] Address: [address] [place] [address] Performed By: #### 5 7021-8 #### [facility] CLIA [id number] [address] [place] [address] Nucleated RBC/100 WBC (Bld) [Ratio] 0.0 /100 WBC Normal [facility] Comment on above: Order Comment: Speci men Type: BLOOD SPECIMEN Ordering Facility: [facility] Address: [address] [place] [address] Performed By: #### 5 7021-8 #### [facility] CLIA [id number] [address] [place] [address]15 Platelet mean volume (Bld) [Entitic vol] 8.8 fL Low 9.0-12.7 [facility] Comment on above: Order Comment: Speci men Type: BLOOD SPECIMEN Ordering Facility: [facility] Address: [address] [place] [address] Performed By: #### 5 7021-8 #### [facility] CLIA [id number] [address] [place] [address]396 Platelets (Bld) [#/Vol] 419 10*3/uL High 150-400 [facility] Comment on above: Order Comment: Speci men Type: BLOOD SPECIMEN Ordering Facility: [facility] Address: [address] [place] [address] Performed By: #### 5 7021-8 #### [facility] CLIA [id number] [address] [place] [address] 21444 RBC (Bld) [#/Vol] 4.18 10*6/uL Normal 3.90-5.20 [facility] Comment on above: Order Comment: Speci men Type: BLOOD SPECIMEN Ordering Facility: [facility] Address: [address] [place] [address] Performed By: #### 5 7021-8 #### [facility] CLIA [id number] [address] [place] [address]1110 WBC (Bld) [#/Vol] 6.61 10*3/uL Normal 3.70-11.00 [facility] Comment on above: Order Comment: Speci men Type: BLOOD SPECIMEN Ordering Facility: [facility] Address: [address] [place] [id number] Performed By: #### 5 7021-8 #### [facility] CLIA [id number] [address] [place] [address] CNOVSPon 03-10-2022 CNOVSP Visit (SP) Office (HEMASA) ANTONIA NOYOLA ([id number]) 1985 F Date Time Provider Department 03/10/22 2:00 PM MADYSON NI During your visit today, we recorded the following information about you: Temperature Pulse Respiration Blood pressure 97.9 degrees 95/minute 16/minute 130/75 Weight Height 83.4 kg 1.651 m Madyson Ni APRN.CNP 03/10/2022 2:25 PM Signed NAME: Antonia Noyola NO.: [id number] DATE OF SERVICE: March 10, 2022 (Elements copied from Dr. Gino Reid note dated October 27, 2020, have been reviewed and updated where appropriate, and all reflect current assessment and medical decision making during today's encounter, March 10, 2022) Referring Provider: Dr. Jennifer Duran Additional Clinicians involved in Antonia Noyola's care: CC: Iron deficiency anemia ASSESSMENT: [...] 1. HPI: Updated Visit, March 10, 2022: Antonia Noyola returns for follow-up. She recently saw her PCP, Dr. Duran, and was found to have abnormal labs including a low hemoglobin and low iron studies. She continues to have heavy monthly menses lasting on average 6 days. She denies any other signs of blood loss. Her biggest complaint is fatigue. 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 Initial Visit, October 27, 2020: Antonia Noyola presents today Hematology and Oncology evaluation. [...] with subsequent iron deficiency. Recent laboratories from [facility] October 04, 2020 show hemoglobin of 11.6 [...] to chronic (more content not included)... Normal [facility] Comprehensive metabolic 2000 panelon 03-10-2022 Albumin [Mass/Vol] 4.0 g/dL Normal 3.9-4.9 [facility] Comment on above: Order Comment: Speci men Type: BLOOD SPECIMEN [facility]ing Facility: [facility] Address: [address] [place] [address] Performed By: #### 2 4323-8 #### [facility] CLIA [id number] [address] [place] [address] ALP [Catalytic activity/Vol] 55 U/L Normal 34-123 [facility] Comment on above: Order Comment: Speci men Type: BLOOD SPECIMEN Ordering Facility: [facility] Address: [address] [place] [address] Performed By: #### 2 4323-8 #### [facility] CLIA [id number] [address] [place] [address]35 ALT [Catalytic activity/Vol] 12 U/L Normal 7-38 [facility] Comment on above: Order Comment: Speci men Type: BLOOD SPECIMEN Ordering Facility: [facility] Address: [address] [place] [address] Performed By: #### 2 4323-8 #### [facility] CLIA [id number] [address] [place] [address]24 Anion gap [Moles/Vol] 9 mmol/L Normal 9-18 [facility] Comment on above: Order Comment: Speci men Type: BLOOD SPECIMEN Ordering Facility: [facility] Address: [address] [place] [address] Performed By: #### 2 4323-8 #### [facility] CLIA [id number] [address] [place] [address]241 AST [Catalytic activity/Vol] 14 U/L Normal 13-35 [facility] Comment on above: Order Comment: Speci men Type: BLOOD SPECIMEN Ordering Facility: [facility] Address: [address] [place] [address] Performed By: #### 2 4323-8 #### [facility] CLIA [id number] [address] [place] [address]57 Bilirubin [Mass/Vol] 0.3 mg/dL Normal 0.2-1.3 [facility] Comment on above: Order Comment: Speci men Type: BLOOD SPECIMEN Ordering Facility: [facility] Address: [address] [address] Performed By: #### 2 4323-8 #### [facility] CLIA [id number] [address] [place] [address]018 Calcium [Mass/Vol] 8.8 mg/dL Normal 8.5-10.2 [facility] Comment on above: Order Comment: Speci men Type: BLOOD SPECIMEN Ordering Facility: [facility] Address: [address] [place] [address] Performed By: #### 2 4323-8 #### [facility] CLIA [id number] [address] [place] [address] Chloride [Moles/Vol] 105 mmol/L Normal 97-105 [facility] Comment on above: Order Comment: Speci men Type: BLOOD SPECIMEN Ordering Facility: [facility] Address: [address] [place] [address] Performed By: #### 2 4323-8 #### [facility] CLIA [id number] [address] [place] [address] CO2 [Moles/Vol] 24 mmol/L Normal 22-30 [facility] Comment on above: Order Comment: Speci men Type: BLOOD SPECIMEN Ordering Facility: [facility] Address: [address] [place] [address] Performed By: #### 2 4323-8 #### [facility] CLIA [id number] [address] [place] [address] Creatinine [Mass/Vol] 0.65 mg/dL Normal 0.58-0.96 [facility] Comment on above: Order Comment: Speci men Type: BLOOD SPECIMEN Ordering Facility: [facility] Address: [address] [address] Performed By: #### 2 4323-8 #### [facility] CLIA [id number] [address] [place] [address] ESTIMATED GLOMERULAR FILTRATION RATE 118 mL/min/1.73m??? Normal >=60 [facility] Comment on above: Order Comment: Roselyn conway Type: BLOOD SPECIMEN Ordering Facility: [facility] Address: [address] [place] [phone] Result Comment: Shelley mated Glomerular Filtration Rate [...] GFR. Performed By: #### 2 4323-8 #### [facility] CLIA [id number] [address] [place] [address] Glucose [Mass/Vol] 109 mg/dL High 74-99 [facility] Comment on above: Order Comment: Roselyn conway Type: BLOOD SPECIMEN Ordering Facility: [facility] Address: [address] [place] [phone] Result Comment: The [place] Diabetes Association (ADA) provides guidance for cutoff [...] Standards of Medical Care in Diabetes 2016, [place] [employer]. Diabetes Care. 2016.39(Suppl 1). Performed By: #### 2 4323-8 #### [facility] CLIA [id number] [address] [place] [address] Potassium [Moles/Vol] 3.4 mmol/L Low 3.7-5.1 [facility] Comment on above: Order Comment: Roselyn conway Type: BLOOD SPECIMEN Ordering Facility: [facility] Address: [address] [place] [address] Performed By: #### 2 4323-8 #### [facility] CLIA [id number] [address] [place] [address] Protein [Mass/Vol] 6.5 g/dL Normal 6.3-8.0 [facility] Comment on above: Order Comment: Speci men Type: BLOOD SPECIMEN Ordering Facility: [facility] Address: [address] [place] [address] Performed By: #### 2 4323-8 #### [facility] CLIA [id number] [address] [place] [address] Sodium [Moles/Vol] 138 mmol/L Normal 136-144 [facility] Comment on above: Order Comment: Speci men Type: BLOOD SPECIMEN Ordering Facility: [facility] Address: [address] [place] [address] Performed By: #### 2 4323-8 #### [facility] CLIA [id number] [address] [place] [address] Urea nitrogen [Mass/Vol] 8 mg/dL Normal 7-21 [facility] Comment on above: Order Comment: Speci men Type: BLOOD SPECIMEN Ordering Facility: [facility] Address: [address] [place] [address] Performed By: #### 2 4323-8 #### [facility] CLIA [id number] [address] [place] [address] Ferritin SerPl-ncon 2021 Ferritin [Mass/Vol] 5.4 ng/mL Low 14.7-205.1 [facility] Comment on above: Order Comment: Speci men Type: BLOOD SPECIMEN Ordering Facility: [facility] Address: [address] [place] [address] Performed By: #### 5 0190-8, 2132-9, 2284-8, 2276-4 #### [facility] CLIA [id number] [address] [place] [address] [place] Folate SerPl-mCncon 03-10-20 Folate [Mass/Vol] 8.7 ng/mL Normal >4.7 [facility] Comment on above: Order Comment: Speci men Type: BLOOD SPECIMEN Ordering Facility: [facility] Address: [address] [place] [address] Performed By: #### 5 0190-8, 9, 8, 2275-4 #### [facility] CLIA [id number] [address] [place] [address] [place] Iron and Iron binding capaci ty panelon 03-10-2022 Iron [Mass/Vol] 17 ug/dL Low 41-186 [facility] Comment on above: Order Comment: Speci men Type: BLOOD SPECIMEN Ordering Facility: [facility] Address: [address] [place] [address] Performed By: #### 5 0190-8, 9, 8, 2275-4 #### [facility] CLIA [id number] [address] [place] [address] [place] Iron binding capacity [Mass/Vol] 422 ug/dL High 232-386 [facility] Comment on above: Order Comment: Speci men Type: BLOOD SPECIMEN Ordering Facility: [facility] Address: [address] [place] [address] Performed By: #### 5 0190-8, 2131-9, 8, 2275-4 #### [facility] CLIA [id number] [address] [place] [address] [place] Iron/TIBC [Molar ratio] 4.0 % Low 15.0-57.0 [facility] Comment on above: Order Comment: Speci men Type: BLOOD SPECIMEN Ordering Facility: [facility] Address: [address] [place] [address] Performed By: #### 5 0190-8, 9, 2283-8, 6-4 #### [facility] CLIA [id number] [address] [place] [address] [place] Vit B12 SerPl-mCncon 03-10-2 022 Cobalamin (Vitamin B12) [Mass/Vol] 367 pg/mL Normal 232-1245 [facility] Comment on above: Order Comment: Speci men Type: BLOOD SPECIMEN Ordering Facility: [facility] Address: [address] [place] [address] Performed By: #### 5 0190-8, 2131-9, 8, 6-4 #### [facility] CLIA [id number] [address] [place] [address] OF [place] CNPNon 02-18-2022 CNPN Telephone (HEMASA) ANTONIA NOYOLA ([id number]) 1985 F Date Time Provider Department 02/18/22 MADYSON NI During your visit today, we recorded the following information about you: Meaghan Ordonez 02/18/2022 3:15 PM Signed Patient has an appt on 02/23. Would you like labs? Allergies As of Date: 02/18/2022 Noted Allergy Reaction MORPHINE 06/20/2018 14 - Other: See Comments Comments: Spasms Date Reviewed: 10/27/2020 Reviewed by: Maria E Guthrie - Fully Assessed Reason for Visit: Lab Orders [8] Primary Visit Diagnosis:Iron deficiency anemia due to chronic blood loss [D50.0] Order(s):CBC + DIFF [SQCBCDIF] Order #: [id number] FUTURE COMP METABOLIC PANEL [SQCMP] Order #: [id number] FUTURE IRON + TIBC [SQIRON] Order #: [id number] FUTURE FERRITIN BLD [SQFERR] Order #: [id number] FUTURE VITAMIN B12 BLOOD [SQB12] Order #: [id number] FUTURE FOLATE SERUM [SQSERFOL] Order #: [id number] FUTURE Prescriptions as of 02/20/2022 - ALPRAZolam [...] of iron [K90.9] 10/27/2020 Encounter Status:Closed by GINO REID on 02/20/22 Normal [facility] Basophils Auto (Bld) [#/Vol] Ordered By: Jennifer Duran on 02-12-2022 Basophils (Bld) [#/Vol] 0.1 10*3/uL 0.0-0.2 [facility] Basophils/100 WBC Auto (Bld) Ordered By: Jennifer Duran on 02-12-2022 Basophils/100 WBC (Bld) 1.0 % . F [facility] Blood anisocytosis detection Ordered By: Jennifer Duran on 02-12-2022 Anisocytosis Ql (Bld) Moderate Fir [facility] Blood hemoglobin measurement (mass/volume)Ordered By: Jennifer Duran on 02-12-2022 Hemoglobin (Bld) [Mass/Vol] 8.5 g/dL 11.8-15.4 [facility] Blood leukocytes automated c ount (number/volume)Ordered By: Jennifer Duran on 02-12-2022 WBC (Bld) [#/Vol] 5.9 10*3/uL 4.5-11.0 [facility] Body fluid albumin measureme nt (mass/volume)Ordered By: Jennifer Duran on 02-12-2022 Albumin (Body fld) [Mass/Vol] 3.7 g/dL 3.2-5.[address] [facility] [address] biopsyOrdered By: Jennifer avila on 02-12-2022 Transferrin [Mass/Vol] 356 mg/dL 180-380 [facility] Creatinine and Glomerular fi ltration rate.predicted panel (S/P/Bld)Ordered By: Jennifer Duran on 02-12-2022 Creatinine [Mass/Vol] 0.72 mg/dL 0.44-1.03 [facility] Eosinophils Auto (Bld) [#/Vo l]Ordered By: Jennifer Duran on 02-12-2022 Eosinophils (Bld) [#/Vol] 0.1 10*3/uL 0.0-0.45 [facility] Eosinophils/100 WBC Auto (Bl d)Ordered By: Jennifer Duran on 02-12-2022 Eosinophils/100 WBC (Bld) 2.2 % . [facility] Erythrocyte distribution wid th Auto (RBC) [Ratio]Ordered By: Jennifer Duran on 02-12-2022 Erythrocyte distribution width (RBC) [Ratio] 17.3 % 11.9-15.3 [facility] Estimated glomerular filtrat ion rate (GFR) non- AmericanOrdered By: Jennifer Duran on 02-12-2022 GFR/1.73 sq M.predicted among non-blacks MDRD (S/P/Bld) [Vol rate/Area] > 60 mL/Min [facility] Ferritin [Mass/volume] in Se rum or PlasmaOrdered By: Jennifer Duran on 02-12-2022 Ferritin [Mass/Vol] 5.1 ng/mL 11-306.8 [facility] Globulin Calc (S) [Mass/Vol] Ordered By: Jennifer Duran on 02-12-2022 Globulin (S) [Mass/Vol] 2.9 g/dL F [facility] Hematocrit Auto (Bld) [Volum e fraction]Ordered By: Jennifer Duran on 02-12-2022 Hematocrit (Bld) [Volume fraction] 27.9 % 34.0-46.4 [facility] Hypochromia detectionOrdered By: Jennifer Duran on 02-12-2022 Hypochromia Ql (Bld) Slight [facility] Iron [Mass/volume] in Serum or PlasmaOrdered By: Jennifer Duran on 02-12-2022 Iron [Mass/Vol] 11 ug/dL 40-150 [facility] Iron binding capacity [Mass/ volume] in Serum or PlasmaOrdered By: Jennifer Duran on 02-12-2022 Iron binding capacity [Mass/Vol] 498 ug/dL 255-450 [facility] Iron saturation [Mass Fracti on] in Serum or PlasmaOrdered By: Jennifer Duran on 02-12-2022 Iron saturation [Mass fraction] 2.0 % 20-50 [facility] Laboratory - Hematology and Cell countsOrdered By: Jennifer Duran on 02-12-2022 Nucleated RBC/100 WBC (Bld) [Ratio] 0.3 % 0-0.5 [facility] Lymphocytes Auto (Bld) [#/Vo l]Ordered By: Jennifer Duran on 02-12-2022 Lymphocytes (Bld) [#/Vol] 3.0 10*3/uL 1.00-4.8 [facility] Lymphocytes/100 WBC Auto (Bl d)Ordered By: Jennifer Duran on 02-12-2022 Lymphocytes/100 WBC (Bld) 50.8 % . [facility] MCH Auto (RBC) [Entitic mass ]Ordered By: Jennifer Duran on 02-12-2022 MCH (RBC) [Entitic mass] 20.1 pg 24.7-34.3 [facility] MCHC Auto (RBC) [Mass/Vol]Or dered By: Jennifer Duran on 02-12-2022 MCHC (RBC) [Mass/Vol] 30.4 g/dL 32.0-35.0 [facility] MCV Auto (RBC) [Entitic vol] Ordered By: Jennifer Duran on 02-12-2022 MCV (RBC) [Entitic vol] 66.3 fL 80-100 [facility] Monocytes Auto (Bld) [#/Vol] Ordered By: Jennifer Duran on 02-12-2022 Monocytes (Bld) [#/Vol] 0.3 10*3/uL 0.0-0.8 [facility] Monocytes/100 WBC Auto (Bld) Ordered By: Jennifer Duran on 02-12-2022 Monocytes/100 WBC (Bld) 5.7 % . F [facility] Neutrophils Auto (Bld) [#/Vo l]Ordered By: Jennifer Duran on 02-12-2022 Neutrophils (Bld) [#/Vol] 2.4 10*3/uL 1.8-7.7 [facility] Neutrophils/100 WBC Auto (Bl d)Ordered By: Jennifer Duran on 02-12-2022 Neutrophils/100 WBC (Bld) 40.3 % . [facility] No Panel InformationOrdered By: Jennifer Duran on 02-12-2022 Estimated GFR () > 60 mL/Min [facility] Comment on above: GFR estimated refere nce range: According to KDOQI guidelines, <60 ml/min/1.73m2 is sufficient to diagnose a patient with chronic kidney disease. Microcytosis Moderate [facility]acy Creatinine Clearance (Chem N/A [facility] Platelet Estimate Normal Normal [facility] Platelet Morphology Comment Normal Normal [facility] Platelet mean volume Auto (B ld) [Entitic vol]Ordered By: Jennifer Duran on 02-12-2022 Platelet mean volume (Bld) [Entitic vol] 8.1 fL 6.3-10.7 [facility] Platelets Auto (Bld) [#/Vol] Ordered By: Jennifer Duran on 02-12-2022 Platelets (Bld) [#/Vol] 459 10*3/uL 150-450 [facility] Protein [Mass/volume] in Ser um or PlasmaOrdered By: Jennifer Duran on 02-12-2022 Protein [Mass/Vol] 6.6 g/dL 6.1-7.9 [facility] RBC Auto (Bld) [#/Vol]Ordere d By: Jennifer Duran on 02-12-2022 RBC (Bld) [#/Vol] 4.20 10*6/uL 3.60-5.00 [facility] RBC morphologyOrdered By: Pool Duran on 02-12-2022 RBC morphology finding Nom (Bld) N/A [facility] Serum or plasma alanine syed otransferase measurement without P-5'-P (enzymatic activiOrdered By: Jennifer Duran on 02-12-2022 ALT No additional P-5'-P [Catalytic activity/Vol] 69 U/L 10-60 [facility] Serum or plasma albumin/glob ulin mass ratioOrdered By: Jennifer Duran on 02-12-2022 Albumin/Globulin [Mass ratio] 1.3 {ratio} [facility] Serum or plasma alkaline zeeshan sphatase measurement (enzymatic activity/volume)Ordered By: Jennifer Duran on 02-12-2022 ALP [Catalytic activity/Vol] 73 U/L 32-92 [facility] Serum or plasma anion gap de terminationOrdered By: Jennifer Duran on 02-12-2022 Anion gap [Moles/Vol] 13.2 mmol/L 6.0-15.0 [facility] Serum or plasma aspartate am inotransferase measurement (enzymatic activity/volume)Ordered By: Jennifer Duran on 02-12-2022 AST [Catalytic activity/Vol] 42 U/L 10-42 [facility] Serum or plasma calcium donaldo urement (mass/volume)Ordered By: Jennifer Duran on 02-12-2022 Calcium [Mass/Vol] 9.3 mg/dL 8.2-10.2 [facility] Serum or plasma chloride claudia surement (moles/volume)Ordered By: Jennifer Duran on 02-12-2022 Chloride [Moles/Vol] 101 mmol/L 95-114 [facility] Serum or plasma glucose donaldo urement (mass/volume)Ordered By: Jennifer Duran on 02-12-2022 Glucose [Mass/Vol] 98 mg/dL 70-100 [facility] Comment on above: ADA recommended [...] on 02-12-2022 Sodium [Moles/Vol] 136 mmol/L 136-146 [facility] Serum or plasma total biliru bin measurement (mass/volume)Ordered By: Jennifer Duran on 02-12-2022 Bilirubin [Mass/Vol] 0.4 mg/dL 0.3-1.2 [facility] Serum or plasma total carbon dioxide measurement (moles/volume)Ordered By: Jennifer Duran on 02-12-2022 CO2 [Moles/Vol] 25.4 mmol/L 22.0-30.0 [facility] Serum or plasma urea nitroge n measurement (mass/volume)Ordered By: Jennifer Duran on 02-12-2022 Urea nitrogen [Mass/Vol] 4 mg/dL 9-23 [facility] Basophils Auto (Bld) [#/Vol] Ordered By: Kendra Persaud on 09-14-2021 Basophils (Bld) [#/Vol] 0.1 10*3/uL 0.0-0.2 [facility] Basophils/100 WBC Auto (Bld) Ordered By: Kendra Persaud on 09-14-2021 Basophils/100 WBC (Bld) 1.3 % F [facility] Bilirubin Test strip Ql (U)O rdered By: Kendra Persaud on 09-14-2021 Bilirubin Ql (U) Negative Negative [facility] Blood hemoglobin measurement (mass/volume)Ordered By: Kendra Persaud on 09-14-2021 Hemoglobin (Bld) [Mass/Vol] 9.7 g/dL 11.8-15.4 [facility] Blood leukocytes automated c ount (number/volume)Ordered By: Kendra Persaud on 09-14-2021 WBC (Bld) [#/Vol] 8.9 10*3/uL 4.5-11.0 [facility] Body fluid albumin measureme nt (mass/volume)Ordered By: Kendra Persaud on 09-14-2021 Albumin (Body fld) [Mass/Vol] 3.7 g/dL 3.2-5.5 [facility] Color Auto (U)Ordered By: Jazmin Persaud on 09-14-2021 Color (U) Yellow Yellow [facility] Creatinine and Glomerular fi ltration rate.predicted panel (S/P/Bld)Ordered By: Kendra Persaud on 09-14-2021 Creatinine [Mass/Vol] 0.71 mg/dL 0.44-1.03 Fir [facility] Eosinophils Auto (Bld) [#/Vo l]Ordered By: Kendra Persaud on 09-14-2021 Eosinophils (Bld) [#/Vol] 0.0 10*3/uL 0.0-0.45 [facility] Eosinophils/100 WBC Auto (Bl d)Ordered By: Kendra Persaud on 09-14-2021 Eosinophils/100 WBC (Bld) 0.4 % [facility] Erythrocyte distribution wid th Auto (RBC) [Ratio]Ordered By: Kendra Persaud on 09-14-2021 Erythrocyte distribution width (RBC) [Ratio] 17.0 % 11.9-15.3 [facility] Estimated glomerular filtrat ion rate (GFR) non- AmericanOrdered By: Kendra Persaud on 09-14-2021 GFR/1.73 sq M.predicted among non-blacks MDRD (S/P/Bld) [Vol rate/Area] > 60 mL/Min [facility] Globulin Calc (S) [Mass/Vol] Ordered By: Kendra Persaud on 09-14-2021 Globulin (S) [Mass/Vol] 3.2 g/dL [facility] HCG ( test) IA.rapi d Ql (U)Ordered By: Kendra Persaud on 09-14-2021 HCG ( test) Ql (U) Negative [facility] Hematocrit Auto (Bld) [Volum e fraction]Ordered By: Kendra Persaud on 09-14-2021 Hematocrit (Bld) [Volume fraction] 31.9 % 34.0-46.4 [facility] Ketones Auto test strip (U) [Mass/Vol]Ordered By: Kendra Persaud on 09-14-2021 Ketones (U) [Mass/Vol] Negative Negative Fi [facility] Laboratory - Chemistry and C hemistry - challengeOrdered By: Kendra Persaud on 09-14-2021 Lipase [Catalytic activity/Vol] 36.0 U/L 22-51 [facility] - Hematology and Cell countsOrdered By: Kendra Persaud on 09-14-2021 Nucleated RBC/100 WBC (Bld) [Ratio] 0.0 % 0-0.5 [facility] Lymphocytes Auto (Bld) [#/Vo l]Ordered By: Kendra Persaud on 09-14-2021 Lymphocytes (Bld) [#/Vol] 4.1 10*3/uL 1.00-4.8 [facility] Lymphocytes/100 WBC Auto (Bl d)Ordered By: Kendra Persaud on 09-14-2021 Lymphocytes/100 WBC (Bld) 45.7 % [facility] MCH Auto (RBC) [Entitic mass ]Ordered By: Kendra Persaud on 09-14-2021 MCH (RBC) [Entitic mass] 21.3 pg 24.7-34.3 [facility] MCHC Auto (RBC) [Mass/Vol]Or dered By: Kendra Persaud on 09-14-2021 MCHC (RBC) [Mass/Vol] 30.4 g/dL 32.0-35.0 [facility] MCV Auto (RBC) [Entitic vol] Ordered By: Kendra Persaud on 09-14-2021 MCV (RBC) [Entitic vol] 70.0 fL 80-100 [facility] Monocytes Auto (Bld) [#/Vol] Ordered By: Kendra Persaud on 09-14-2021 Monocytes (Bld) [#/Vol] 0.7 10*3/uL 0.0-0.8 [facility] Monocytes/100 WBC Auto (Bld) Ordered By: Kendra Persaud on 09-14-2021 Monocytes/100 WBC (Bld) 7.8 % F [facility] Neutrophils Auto (Bld) [#/Vo l]Ordered By: Kendra Persaud on 09-14-2021 Neutrophils (Bld) [#/Vol] 4.0 10*3/uL 1.8-7.7 [facility] Neutrophils/100 WBC Auto (Bl d)Ordered By: Kendra Persaud on 09-14-2021 Neutrophils/100 WBC (Bld) 44.8 % [facility] Nitrite Test strip Ql (U)Ord ered By: Kendra Persaud on 09-14-2021 Nitrite Ql (U) Negative Negative [facility] No Panel InformationOrdered By: Kendra Persaud on 09-14-2021 Estimated GFR () > 60 mL/Min [facility] Comment on above: GFR estimated refere nce range: According to KDOQI guidelines, <60 ml/min/1.73m2 is sufficient to diagnose a patient with chronic kidney disease. Pharmacy Creatinine Clearance (Chem 119.44 [facility] Platelet mean volume Auto (B ld) [Entitic vol]Ordered By: Kendra Persaud on 09-14-2021 Platelet mean volume (Bld) [Entitic vol] 7.4 fL 6.3-10.7 [facility] Platelets Auto (Bld) [#/Vol] Ordered By: Kendra Persaud on 09-14-2021 Platelets (Bld) [#/Vol] 604 10*3/uL 150-450 [facility] Protein Auto test strip (U) [Mass/Vol]Ordered By: Kendra Persaud on 09-14-2021 Protein (U) [Mass/Vol] Negative Negative [facility] Protein [Mass/volume] in Ser um or PlasmaOrdered By: Kendra Persaud on 09-14-2021 Protein [Mass/Vol] 6.9 g/dL 6.1-7.9 [facility] RBC Auto (Bld) [#/Vol]Ordere d By: Kendra Persaud on 09-14-2021 RBC (Bld) [#/Vol] 4.55 10*6/uL 3.60-5.00 [facility] Serum or plasma alanine syed otransferase measurement without P-5'-P (enzymatic activiOrdered By: Kendra Persaud on 09-14-2021 ALT No additional P-5'-P [Catalytic activity/Vol] 16 U/L 10-60 [facility] Serum or plasma albumin/glob ulin mass ratioOrdered By: Kendra Persaud on 09-14-2021 Albumin/Globulin [Mass ratio] 1.2 {ratio} [facility] Serum or plasma alkaline zeeshan sphatase measurement (enzymatic activity/volume)Ordered By: Kendra Persaud on 09-14-2021 ALP [Catalytic activity/Vol] 48 U/L 32-92 [facility] Serum or plasma aspartate am inotransferase measurement (enzymatic activity/volume)Ordered By: Kendra Persaud on 09-14-2021 AST [Catalytic activity/Vol] 17 U/L 10-42 [facility] Serum or plasma calcium donaldo urement (mass/volume)Ordered By: Kendra Persaud on 09-14-2021 Calcium [Mass/Vol] 9.0 mg/dL 8.2-10.2 [facility] Serum or plasma chloride claudia surement (moles/volume)Ordered By: Kendra Persaud on 09-14-2021 Chloride [Moles/Vol] 105 mmol/L 95-114 [facility] Serum or plasma glucose donaldo urement (mass/volume)Ordered By: Kendra Persaud on 09-14-2021 Glucose [Mass/Vol] 94 mg/dL 70-100 [facility] Comment on above: ADA recommended [...] on 09-14-2021 Sodium [Moles/Vol] 139 mmol/L 136-146 [facility] Serum or plasma total biliru bin measurement (mass/volume)Ordered By: Kendra Persaud on 09-14-2021 Bilirubin [Mass/Vol] 0.5 mg/dL 0.3-1.2 [facility] Serum or plasma total carbon dioxide measurement (moles/volume)Ordered By: Kendra Persaud on 09-14-2021 CO2 [Moles/Vol] 23.7 mmol/L 22.0-30.0 [facility] Serum or plasma urea nitroge n measurement (mass/volume)Ordered By: Kendra Persaud on 09-14-2021 Urea nitrogen [Mass/Vol] 4 mg/dL 03-05 [facility] Specific gravity Auto test s trip (U) [Rel density]Ordered By: Kendra Persaud on 09-14-2021 Specific gravity (U) [Rel density] 1.004 1.001-1.030 [facility] Urine clarity by refractomet ry automatedOrdered By: Kendra Persaud on 09-14-2021 Clarity Refractometry automated (U) Clear Clear [facility] Urine glucose measurement by automated test strip (mass/volume)Ordered By: Kendra Persaud on 09-14-2021 Glucose Auto test strip (U) [Mass/Vol] Normal mg/dL Normal [facility] Urine hemoglobin detection b y automated test stripOrdered By: Kendra Persaud on 09-14-2021 Hemoglobin Auto test strip Ql (U) Negative Negative [facility] Urine leukocyte esterase det ection by automated test stripOrdered By: Kendra Persaud on 09-14-2021 Leukocyte esterase Auto test strip Ql (U) Negative Negative [facility] Urobilinogen Auto test strip (U) [Mass/Vol]Ordered By: Kendra Persaud on 09-14-2021 Urobilinogen (U) [Mass/Vol] Normal mg/dL Normal [facility] pH Auto test strip (U)Ordere d By: Kendra Persaud on 09-14-2021 pH (U) 6.5 [pH] 5.0-9.0 [facility] Basophils Auto (Bld) [#/Vol] Ordered By: Augustus Santiago on 07-04-2021 Basophils (Bld) [#/Vol] 0.1 10*3/uL 0.0-0.2 [facility] Basophils/100 WBC Auto (Bld) Ordered By: Augustus Santiago on 07-04-2021 Basophils/100 WBC (Bld) 0.9 % [facility] Blood hemoglobin measurement (mass/volume)Ordered By: Augustus Santiago on 07-04-2021 Hemoglobin (Bld) [Mass/Vol] 10.2 g/dL 11.8-15.4 [facility] Blood leukocytes automated c ount (number/volume)Ordered By: Augustus Santiago on 07-04-2021 WBC (Bld) [#/Vol] 6.6 10*3/uL 4.5-11.0 [facility] [facility] biopsyOrdered By: Augustus powell on 07-04-2021 Transferrin [Mass/Vol] 360 mg/dL 180-380 [facility] Creatinine and Glomerular fi ltration rate.predicted panel (S/P/Bld)Ordered By: Augustus Santiago on 07-04-2021 Creatinine [Mass/Vol] 0.69 mg/dL 0.44-1.03 [facility] Eosinophils Auto (Bld) [#/Vo l]Ordered By: Augustus Santiago on 07-04-2021 Eosinophils (Bld) [#/Vol] 0.1 10*3/uL 0.0-0.45 [facility] Eosinophils/100 WBC Auto (Bl d)Ordered By: Augustus Santiago on 07-04-2021 Eosinophils/100 WBC (Bld) 1.2 % [facility] Erythrocyte distribution wid th Auto (RBC) [Ratio]Ordered By: Augustus Santiago on 07-04-2021 Erythrocyte distribution width (RBC) [Ratio] 17.2 % 11.9-15.3 [facility] Estimated glomerular filtrat ion rate (GFR) non- AmericanOrdered By: Augustus Santiago on 07-04-2021 GFR/1.73 sq M.predicted among non-blacks MDRD (S/P/Bld) [Vol rate/Area] > 60 mL/Min [facility] Hematocrit Auto (Bld) [Volum e fraction]Ordered By: Augustus Santiago on 07-04-2021 Hematocrit (Bld) [Volume fraction] 32.0 % 34.0-46.4 [facility] Iron [Mass/volume] in Serum or PlasmaOrdered By: Augustus Santiago on 07-04-2021 Iron [Mass/Vol] 10 ug/dL 40-150 [facility] Iron binding capacity [Mass/ volume] in Serum or PlasmaOrdered By: Augustus Santiago on 07-04-2021 Iron binding capacity [Mass/Vol] 504 ug/dL 255-450 [facility] Iron saturation [Mass Fracti on] in Serum or PlasmaOrdered By: Augustus Santiago on 07-04-2021 Iron saturation [Mass fraction] 1.0 % 20-50 [facility] Laboratory - Hematology and Cell countsOrdered By: Augustus Santiago on 07-04-2021 Nucleated RBC/100 WBC (Bld) [Ratio] 0.0 % 0-0.5 [facility] Lymphocytes Auto (Bld) [#/Vo l]Ordered By: Augustus Santiago on 07-04-2021 Lymphocytes (Bld) [#/Vol] 1.9 10*3/uL 1.00-4.8 [facility] Lymphocytes/100 WBC Auto (Bl d)Ordered By: Augustus Santiago on 07-04-2021 Lymphocytes/100 WBC (Bld) 28.4 % [facility] MCH Auto (RBC) [Entitic mass ]Ordered By: Augustus Santiago on 07-04-2021 MCH (RBC) [Entitic mass] 22.7 pg 24.7-34.3 [facility] MCHC Auto (RBC) [Mass/Vol]Or dered By: Augustus Santiago on 07-04-2021 MCHC (RBC) [Mass/Vol] 31.9 g/dL 32.0-35.0 [facility] MCV Auto (RBC) [Entitic vol] Ordered By: Augustus Santiago on 07-04-2021 MCV (RBC) [Entitic vol] 71.3 fL 80-100 [facility] Monocytes Auto (Bld) [#/Vol] Ordered By: Augustus Santiago on 07-04-2021 Monocytes (Bld) [#/Vol] 0.5 10*3/uL 0.0-0.8 [facility] Monocytes/100 WBC Auto (Bld) Ordered By: Augustus Santiago on 07-04-2021 Monocytes/100 WBC (Bld) 7.6 % F [facility] Neutrophils Auto (Bld) [#/Vo l]Ordered By: Augustus Santiago on 07-04-2021 Neutrophils (Bld) [#/Vol] 4.1 10*3/uL 1.8-7.7 [facility] Neutrophils/100 WBC Auto (Bl d)Ordered By: Augustus Santiago on 07-04-2021 Neutrophils/100 WBC (Bld) 61.9 % [facility] No Panel InformationOrdered By: Augustus Santiago on 07-04-2021 D-Dimer Quantitative (PE/DVT) < 200 ng/mL 0-243 [facility] Comment on above: The reference range [...] conditions. Estimated GFR () > 60 mL/Min [facility] Comment on above: GFR estimated refere nce range: According to KDOQI guidelines, <60 ml/min/1.73m2 is sufficient to diagnose a patient with chronic kidney disease. Pharmacy Creatinine Clearance (Chem N/A [facility] Platelet mean volume Auto (B ld) [Entitic vol]Ordered By: Augustus Santiago on 07-04-2021 Platelet mean volume (Bld) [Entitic vol] 7.9 fL 6.3-10.7 [facility] Platelets Auto (Bld) [#/Vol] Ordered By: Augustus Santiago on 07-04-2021 Platelets (Bld) [#/Vol] 457 10*3/uL 150-450 [facility] RBC Auto (Bld) [#/Vol]Ordere d By: Augustus Santiago on 07-04-2021 RBC (Bld) [#/Vol] 4.48 10*6/uL 3.60-5.00 [facility] Serum or plasma calcium donaldo urement (mass/volume)Ordered By: Augustus Santiago on 07-04-2021 Calcium [Mass/Vol] 8.9 mg/dL 8.2-10.2 [facility] Serum or plasma chloride claudia surement (moles/volume)Ordered By: Augustus Santiago on 07-04-2021 Chloride [Moles/Vol] 105 mmol/L 95-114 [facility] Serum or plasma glucose donaldo urement (mass/volume)Ordered By: Augustus Santiago on 07-04-2021 Glucose [Mass/Vol] 110 mg/dL 70-100 [facility] Comment on above: ADA recommended [...] on 07-04-2021 Sodium [Moles/Vol] 136 mmol/L 136-146 [facility] Serum or plasma total carbon dioxide measurement (moles/volume)Ordered By: Augustus Santiago on 07-04-2021 CO2 [Moles/Vol] 23.0 mmol/L 22.0-30.0 [facility] Serum or plasma urea nitroge n measurement (mass/volume)Ordered By: Augustus Santiago on 07-04-2021 Urea nitrogen [Mass/Vol] 5 mg/dL 9-23 [facility] Cardiac Stress Teston 2020 Cardiac Stress Test [address], [address] [place] [address] TRANSTHORACIC ECHOCARDIOGRAM REPORT Patient Name: ANTONIA NOYOLA Reading Physician: [id number] Raphael Alas MD Study Date: 08/06/2020 Referring Physician: [id number] ANNA CANTU MRN/PID: [id number] PCP: Jennifer Duran Accession/Order#: [id number] Department Location: [facility] Lei Date of : 1985 Fellow: Gender: F Nurse: Admit Date: Staff Anesthetist: Josephine Newton RDCS, RVT Height: 165.10 cm CC Report to: Weight: 88.00 kg Study Type: Echocardiogram BSA: 1.95 m2 Diagnosis/ICD: R06.00-Dyspnea, unspecified; R00.0-Tachycardia, unspecified Indication: Obesity, Family History of CAD Procedure/CPT: Echo Complete w Full [id number] Study Detail: The following Echo studies were [...] 0.9 m/s (0.6-0.9m/s) PV Max P.0 mmHg [id number] Raphael Alas MD Electronically signed on 08/07/2020 at 4:26:59 PM Final Normal [facility] Vital Signs Date Time Vital Sign Value Performing Clinician Facility 06-25-2024 01:00-0500 Diastolic blood pressure 90 mm[Hg] Ritesh Ivana [facility] 06-25-2024 01:00-0500 Heart rate 128 /min Ritesh Ivana [facility] 06-25-2024 01:00-0500 Mean blood pressure 105 mm[Hg] Ritesh Ivana [facility] 06-25-2024 01:00-0500 SaO2% (BldA) [Mass fraction] 97 % Ritesh Ivana [facility] 06-25-2024 01:00-0500 Systolic blood pressure 135 mm[Hg] Ritesh Ivana [facility] 06-25-2024 00:30-0500 Diastolic blood pressure 85 mm[Hg] Ritesh Ivana [facility] 06-25-2024 00:30-0500 Heart rate 124 /min Ritesh Ivana [facility] 06-25-2024 00:30-0500 Mean blood pressure 96 mm[Hg] Ritesh Ivana [facility] 06-25-2024 00:30-0500 Respiratory rate 20 /min Ritesh Ivana [facility] 06-25-2024 00:30-0500 SaO2% (BldA) [Mass fraction] 100 % Ritesh Ivana [facility] 06-25-2024 00:30-0500 Systolic blood pressure 118 mm[Hg] Ritesh Ivana [facility] 06-24-2024 23:35-0500 Diastolic blood pressure 97 mm[Hg] Ritesh Ivana [facility] 06-24-2024 23:35-0500 Heart rate 121 /min Ritesh Heath [facility] 06-24-2024 23:35-0500 Mean blood pressure 110 mm[Hg] Ritesh Ivana [facility] 06-24-2024 23:35-0500 SaO2% (BldA) [Mass fraction] 100 % Ritesh Ivana [facility] 06-24-2024 23:35-0500 Systolic blood pressure 136 mm[Hg] Ritesh Ivana [facility] 06-24-2024 19:30-0500 Body temperature 97.7 [degF] Ritesh Heath [facility] 06-24-2024 19:30-0500 Heart rate 147 /min Ritesh Ivana [facility] 04-03-2024 14:49-0400 Body height 165.1 cm [facility] 04-03-2024 14:49-0400 Body mass index (BMI) [Ratio] 31.62 kg/m2 [facility] 04-03-2024 14:49-0400 Body weight 86.18 kg [facility] 03-28-2024 11:02-0400 Body height 165.1 cm Adiel Aparicio MD Work Phone: [facility] 03-28-2024 11:02-0400 Body mass index (BMI) [Ratio] 32.98 kg/m2 Adiel Aparicio MD Work Phone: [facility] 03-28-2024 11:02-0400 Body weight 89.9 kg Adiel Aparicio MD Work Phone: [facility] 03-23-2024 12:03-0400 Body mass index (BMI) [Ratio] 32.5 kg/m2 [facility] 03-23-2024 12:03-0400 Body temperature 97.9 [degF] [facility] 03-23-2024 12:03-0400 Body weight 88.9 kg [facility] 03-23-2024 12:03-0400 Diastolic blood pressure 64 mm[Hg] [facility] 03-23-2024 12:03-0400 Heart rate 91 /min [facility] 03-23-2024 12:03-0400 SaO2% (BldA) [Mass fraction] 98 % [facility] 03-23-2024 12:03-0400 Systolic blood pressure 102 mm[Hg] [facility] 03-23-2024 08:40-0400 Body height 165.1 cm [facility] 03-03-2024 15:27-0400 Body temperature 98.71 [degF] Davi Pay DO Work Phone: [facility] 03-03-2024 15:27-0400 Diastolic blood pressure 84 mm[Hg] Davi Pay DO Work Phone: [facility] 03-03-2024 15:27-0400 Heart rate 115 /min Davi Pay DO Work Phone: [facility] 03-03-2024 15:27-0400 Respiratory rate 18 /min Davi Pay DO Work Phone: [facility] 03-03-2024 15:27-0400 SaO2% (BldA) [Mass fraction] 97 % Davi Pay DO Work Phone: [facility] 03-03-2024 15:27-0400 Systolic blood pressure 164 mm[Hg] Davi Pay DO Work Phone: [facility] 02-24-2024 20:29-0400 Body height 165.1 cm Ashley Delcid MD Work Phone: [facility] 02-24-2024 20:29-0400 Body temperature 98.01 [degF] Ashley Delcid MD Work Phone: [facility] 02-24-2024 20:29-0400 Diastolic blood pressure 72 mm[Hg] Ashley Delcid MD Work Phone: [facility] 02-24-2024 20:29-0400 Heart rate 94 /min Ashley Delcid MD Work Phone: [facility] 02-24-2024 20:29-0400 Respiratory rate 20 /min Ashley Delcid MD Work Phone: [facility] 02-24-2024 20:29-0400 SaO2% (BldA) [Mass fraction] 99 % Ashley Delcid MD Work Phone: [facility] 02-24-2024 20:29-0400 Systolic blood pressure 129 mm[Hg] Ashley Delcid MD Work Phone: [facility] 02-16-2024 16:47-0400 Diastolic blood pressure 68 mm[Hg] Jennifer Moore MD Work Phone: [facility] 02-16-2024 16:47-0400 Heart rate 99 /min Jennifer Moore MD Work Phone: [facility] 02-16-2024 16:47-0400 SaO2% (BldA) [Mass fraction] 96 % Jennifer Moore MD Work Phone: [facility] 02-16-2024 16:47-0400 Systolic blood pressure 115 mm[Hg] Jennifer Moore MD Work Phone: [facility] 02-16-2024 16:38-0400 Respiratory rate 18 /min Jennifer Moore MD Work Phone: [facility] 02-16-2024 13:28-0400 Body temperature 98.29 [degF] Jennifer Moore MD Work Phone: [facility] 02-13-2024 00:26-0400 Body temperature 98.24 [degF] Ritesh Heath [facility] 02-13-2024 00:26-0400 Diastolic blood pressure 72 mm[Hg] Ritesh Heath [facility] 02-13-2024 00:26-0400 Heart rate 86 /min Ritesh Ivana [facility] 02-13-2024 00:26-0400 Respiratory rate 16 /min Ritesh Ivana [facility] 02-13-2024 00:26-0400 SaO2% (BldA) [Mass fraction] 100 % Ritesh Ivana [facility] 02-13-2024 00:26-0400 Systolic blood pressure 109 mm[Hg] Ritesh Heath [facility] 01-22-2024 12:13-0400 Body height 165.1 cm Eren [facility]amejo DO [facility] 01-22-20[facility] 12:13-0400 Body mass index (BMI) [Ratio] 29.95 kg/m2 Eren Camejo DO Work Phone: [facility] [employer] 01-22-2024 12:13-0400 Body temperature 98.71 [degF] Eren Camejo DO Work Phone: [facility] [employer] 01-22-2024 12:13-0400 Body weight 81.65 kg Eren Camejo DO Work Phone: [facility] [employer] 01-22-2024 12:13-0400 Diastolic blood pressure 92 mm[Hg] Eren Camejo DO Work Phone: [facility] [employer] 01-22-2024 12:13-0400 Heart rate 109 /min Eren Camejo DO Work Phone: [employer] 01-22-2024 12:13-0400 Respiratory rate 18 /min Eren Camejo DO Work Phone: [facility] [employer] 01-22-2024 12:13-0400 SaO2% (BldA) [Mass fraction] 100 % Eren Camejo DO Work Phone: [facility] [employer] 01-22-2024 12:13-0400 Systolic blood pressure 152 mm[Hg] Eren Camejo DO Work Phone: [facility] 01-19-2024 11:18-0400 Body height 165.1 cm DO Jennifer Duran Work Phone: [facility] 01-19-2024 11:18-0400 Body mass index (BMI) [Ratio] 31.9 kg/m2 DO Jennifer Duran Work Phone: [facility] 01-19-2024 11:18-0400 Body temperature 98.2 [degF] DO Jennifer Duran Work Phone: [facility] 01-19-2024 11:18-0400 Body weight 87.08 kg DO Jennifer Duran Work Phone: [facility] 01-19-2024 11:18-0400 Diastolic blood pressure 82 mm[Hg] DO Jennifer Duran Work Phone: [facility] 01-19-2024 11:18-0400 Heart rate 102 /min DO Jennifer Duran Work Phone: [facility] 01-19-2024 11:18-0400 Respiratory rate 18 /min DO Jennifer Duran Work Phone: [facility] 01-19-2024 11:18-0400 SaO2% (BldA) [Mass fraction] 98 % DO Jennifer Duran Work Phone: [facility] 01-19-2024 11:18-0400 Systolic blood pressure 122 mm[Hg] DO Jennifer Duran Work Phone: [facility] 11-08-2023 14:03-0400 Body height 165.1 cm DO Jennifer Duran Work Phone: [facility] 11-08-2023 14:03-0400 Body temperature 98.1 [degF] DO Jennifer Duran Work Phone: [facility] 11-08-2023 14:03-0400 Body weight 82.85 kg DO Jennifer Duran Work Phone: [facility] 11-08-2023 14:03-0400 Diastolic blood pressure 77 mm[Hg] DO Jennifer Duran Work Phone: [facility] 11-08-2023 14:03-0400 Heart rate 86 /min DO Jennifer Duran Work Phone: [facility] 11-08-2023 14:03-0400 Respiratory rate 16 /min DO Jennifer Duran Work Phone: [facility] 11-08-2023 14:03-0400 SaO2% (BldA) [Mass fraction] 100 % DO Jennifer Duran Work Phone: [facility] 11-08-2023 14:03-0400 Systolic blood pressure 142 mm[Hg] DO Jennifer Duran Work Phone: [facility] 11-08-2023 11:56-0400 Body height 165.1 cm Eren Camejo DO Work Phone: [facility] [employer] 11-08-2023 11:56-0400 Body mass index (BMI) [Ratio] 30.45 kg/m2 Eren Camejo DO Work Phone: [employer] 11-08-2023 11:56-0400 Body temperature 97.81 [degF] Eren Camejo DO Work Phone: [facility] [facility] 11-08-2023 11:56-0400 Body weight 83.01 kg Eren Camejo DO Work Phone: [facility] 11-08-2023 11:56-0400 Diastolic blood pressure 86 mm[Hg] Eren Camejo DO Work Phone: [facility] [facility] 11-08-2023 11:56-0400 Heart rate 100 /min Eren Camejo DO Work Phone: [facility] [employer] 11-08-2023 11:56-0400 Respiratory rate 18 /min Eren Camejo DO Work Phone: [employer] [facility] 11-08-2023 11:56-0400 SaO2% (BldA) [Mass fraction] 99 % Eren Camejo DO Work Phone: [facility] 11-08-2023 11:56-0400 Systolic blood pressure 133 mm[Hg] Eren Emely DO Work Phone: [facility] 09-30-2023 02:09-0400 Diastolic blood pressure 89 mm[Hg] Ritesh Ivana [facility] 09-30-2023 02:09-0400 Heart rate 124 /min Ritesh Ivana [facility] 09-30-2023 02:09-0400 Mean blood pressure 109 mm[Hg] Ritesh Ivana [facility] 09-30-2023 02:09-0400 Respiratory rate 20 /min Ritesh Ivana [facility] 09-30-2023 02:09-0400 SaO2% (BldA) [Mass fraction] 98 % Ritesh Ivana [facility] 09-30-2023 02:09-0400 Systolic blood pressure 149 mm[Hg] Ritesh Ivana [facility] 09-30-2023 01:00-0400 Diastolic blood pressure 82 mm[Hg] Ritesh Ivana [facility] 09-30-2023 01:00-0400 Heart rate 118 /min Ritesh Ivana [facility] 09-30-2023 01:00-0400 Mean blood pressure 104 mm[Hg] Ritesh Ivana [facility] 09-30-2023 01:00-0400 SaO2% (BldA) [Mass fraction] 99 % Ritesh Ivana [facility] 09-30-2023 01:00-0400 Systolic blood pressure 147 mm[Hg] Ritesh Ivana [facility] 09-29-2023 23:40-0400 Body temperature 97.7 [degF] Ritesh Ivana [facility] 09-29-2023 23:40-0400 Diastolic blood pressure 92 mm[Hg] Ritesh Ivana [facility] 09-29-2023 23:40-0400 Heart rate 139 /min Ritesh Ivana [facility] 09-29-2023 23:40-0400 Respiratory rate 20 /min Ritesh Lynnner [facility] 09-29-2023 23:40-0400 SaO2% (BldA) [Mass fraction] 100 % Ritesh Ivana [facility] 09-29-2023 23:40-0400 Systolic blood pressure 144 mm[Hg] Ritesh Ivana [facility] 09-26-2023 18:00-0400 Heart rate 119 /min Konstantin Penny [facility] 09-26-2023 18:00-0400 SaO2% (BldA) [Mass fraction] 96 % Konstantin Warde [facility] 09-26-2023 17:30-0400 Diastolic blood pressure 124 mm[Hg] Konstantin Warde [facility] 09-26-2023 17:30-0400 Heart rate 105 /min Konstantin Warde [facility] 09-26-2023 17:30-0400 Mean blood pressure 129 mm[Hg] Konstantin Zohaib [facility] 09-26-2023 17:30-0400 SaO2% (BldA) [Mass fraction] 100 % Konstantin Warde [facility] 09-26-2023 17:30-0400 Systolic blood pressure 139 mm[Hg] Konstantin Zohaib [facility] 09-26-2023 16:48-0400 Diastolic blood pressure 82 mm[Hg] Konstantin Zohaib [facility] 09-26-2023 16:48-0400 Heart rate 126 /min Konstantin Zohaib [facility] 09-26-2023 16:48-0400 Mean blood pressure 101 mm[Hg] Konstantin Zohaib [facility] 09-26-2023 16:48-0400 Respiratory rate 18 /min Konstantin Zohaib [facility] 09-26-2023 16:48-0400 SaO2% (BldA) [Mass fraction] 100 % Konstantin Zohaib [facility] 09-26-2023 16:48-0400 Systolic blood pressure 139 mm[Hg] Konstantin Zohaib [facility] 09-26-2023 16:30-0400 Diastolic blood pressure 96 mm[Hg] Konstantin Zohaib [facility] 09-26-2023 16:30-0400 Mean blood pressure 105 mm[Hg] Konstantin Zohaib [facility] 09-26-2023 16:30-0400 Respiratory rate 18 /min Konstantin Zohaib [facility] 09-26-2023 16:30-0400 Systolic blood pressure 122 mm[Hg] Konstantin Zohaib [facility] 09-26-2023 14:45-0400 Respiratory rate 18 /min Konstantin Zohaib [facility] 09-26-2023 14:13-0400 Body temperature 98.6 [degF] Konstantin Zohaib [facility] 07-31-2023 18:01-0500 Diastolic blood pressure 87 mm[Hg] Jignesh Tim [facility] 07-31-2023 18:01-0500 Heart rate 121 /min Jignesh Tim [facility] 07-31-2023 18:01-0500 Mean blood pressure 99 mm[Hg] Jignesh Tim [facility] 07-31-2023 18:01-0500 Respiratory rate 16 /min Jignesh Tim [facility] 07-31-2023 18:01-0500 SaO2% (BldA) [Mass fraction] 99 % Jignesh Tim [facility] 07-31-2023 18:01-0500 Systolic blood pressure 123 mm[Hg] Jignesh Tim [facility] 07-31-2023 17:00-0500 Diastolic blood pressure 77 mm[Hg] Jignesh Tim [facility] 07-31-2023 17:00-0500 Heart rate 96 /min Jignesh Tim [facility] 07-31-2023 17:00-0500 Mean blood pressure 92 mm[Hg] Jignesh Tim [facility] 07-31-2023 17:00-0500 Systolic blood pressure 122 mm[Hg] Jignesh Tim [facility] 07-31-2023 16:07-0500 Diastolic blood pressure 90 mm[Hg] Jignesh Tim [facility] 07-31-2023 16:07-0500 Heart rate 117 /min Jignesh Tim [facility] 07-31-2023 16:07-0500 Mean blood pressure 105 mm[Hg] Jignesh Dumont [facility] 07-31-2023 16:07-0500 Respiratory rate 19 /min Jignesh Dumont [facility] 07-31-2023 16:07-0500 SaO2% (BldA) [Mass fraction] 100 % Jignesh Dumont [facility] 07-31-2023 16:07-0500 Systolic blood pressure 135 mm[Hg] Jignesh Dumont [facility] 07-31-2023 16:06-0500 Respiratory rate 18 /min Jignesh Dumont [facility] 07-31-2023 15:34-0500 Body temperature 97.88 [degF] Jignesh Dumont [facility] 07-31-2023 15:34-0500 Heart rate 136 /min Jignesh Dumont [facility] 07-31-2023 15:34-0500 Respiratory rate 18 /min Jignesh Dumont [facility] 07-19-2023 12:40-0500 Body height 165.1 cm Jennifer Duran Other [facility] [employer] Other 04-30-2023 18:19-0500 Diastolic blood pressure 82 mm[Hg] DO Jennifer Duran Work Phone: [facility] 04-30-2023 18:19-0500 Heart rate 128 /min DO Jennifer Duran Work Phone: [facility] 04-30-2023 18:19-0500 Respiratory rate 18 /min DO Jennifer Duran Work Phone: [facility] 04-30-2023 18:19-0500 SaO2% (BldA) [Mass fraction] 99 % DO Jennifer Duran Work Phone: [facility] 04-30-2023 18:19-0500 Systolic blood pressure 116 mm[Hg] DO Jennifer Duran Work Phone: [facility] 04-30-2023 16:43-0500 Body height 165.1 cm DO Jennifer Durna Work Phone: [facility] 04-30-2023 16:43-0500 Body temperature 98.1 [degF] DO Jennifer Duran Work Phone: [facility] 04-30-2023 16:43-0500 Body weight 62.3 kg DO Jennifer Duran Work Phone: [facility] 04-24-2023 15:51-0500 Diastolic blood pressure 81 mm[Hg] Jignesh Tim [facility] 04-24-2023 15:51-0500 Heart rate 98 /min Jignesh Dumont [facility] 04-24-2023 15:51-0500 Mean blood pressure 94 mm[Hg] Jignesh Tim [facility] 04-24-2023 15:51-0500 Respiratory rate 17 /min Jignesh Tim [facility] 04-24-2023 15:51-0500 SaO2% (BldA) [Mass fraction] 99 % Jignesh Tim [facility] 04-24-2023 15:51-0500 Systolic blood pressure 120 mm[Hg] Jignesh Tim [facility] 04-24-2023 15:00-0500 Diastolic blood pressure 72 mm[Hg] Jignesh Tim [facility] 04-24-2023 15:00-0500 Heart rate 85 /min Jignesh Tim [facility] 04-24-2023 15:00-0500 Mean blood pressure 87 mm[Hg] Jignesh Tim [facility] 04-24-2023 15:00-0500 Respiratory rate 16 /min Jignesh Tim [facility] 04-24-2023 15:00-0500 SaO2% (BldA) [Mass fraction] 96 % Jignesh Tim [facility] 04-24-2023 15:00-0500 Systolic blood pressure 117 mm[Hg] Jignesh Tim [facility] 04-24-2023 14:00-0500 Diastolic blood pressure 88 mm[Hg] Jignesh Tim [facility] 04-24-2023 14:00-0500 Heart rate 99 /min Jignesh Tim [facility] 04-24-2023 14:00-0500 Mean blood pressure 100 mm[Hg] Jignesh Tim [facility] 04-24-2023 14:00-0500 Respiratory rate 18 /min Jignesh Tim [facility] 04-24-2023 14:00-0500 SaO2% (BldA) [Mass fraction] 97 % Jignesh Tim [facility] 04-24-2023 14:00-0500 Systolic blood pressure 124 mm[Hg] Jignesh Tim [facility] 04-24-2023 13:29-0500 Body temperature 99.14 [degF] Jignesh Tim [facility] 04-24-2023 13:29-0500 Heart rate 118 /min Jignesh Tim [facility] 04-03-2023 00:20-0400 Diastolic blood pressure 70 mm[Hg] DO Jennifer Duran Work Phone: [facility] 04-03-2023 00:20-0400 Heart rate 80 /min DO Jennifer Girivelisse Work Phone: [facility] 04-03-2023 00:20-0400 SaO2% (BldA) [Mass fraction] 98 % DO Jennifer Girvin Work Phone: [facility] 04-03-2023 00:20-0400 Systolic blood pressure 122 mm[Hg] DO Jennifer Girvin Work Phone: [facility] 04-02-2023 21:48-0400 Diastolic blood pressure 75 mm[Hg] DO Jennifer Girvin Work Phone: [facility] 04-02-2023 21:48-0400 Heart rate 90 /min DO Jennifer Girvin Work Phone: [facility] 04-02-2023 21:48-0400 Respiratory rate 20 /min DO Jennifer Girivelisse Work Phone: [facility] 04-02-2023 21:48-0400 SaO2% (BldA) [Mass fraction] 98 % DO Jennifer Girivelisse Work Phone: [facility] 04-02-2023 21:48-0400 Systolic blood pressure 109 mm[Hg] DO Jennifer Girvin Work Phone: [facility] 04-02-2023 20:23-0400 Body height 165.1 cm DO Jennifer Girvin Work Phone: [facility] 04-02-2023 20:23-0400 Body temperature 98.2 [degF] DO Jennifer Girivelisse Work Phone: [facility] 04-02-2023 20:23-0400 Body weight 81.64 kg DO Jennifer Girvin Work Phone: [facility] 03-29-2023 16:11-0400 Body temperature 97.8 [degF] DO Jennifer Girvin Work Phone: [facility] 03-29-2023 16:11-0400 Diastolic blood pressure 79 mm[Hg] DO Jennifer Girivelisse Work Phone: [facility] 03-29-2023 16:11-0400 Heart rate 104 /min DO Jennifer Girivelisse Work Phone: [facility] 03-29-2023 16:11-0400 Respiratory rate 16 /min DO Jennifer Girvin Work Phone: [facility] 03-29-2023 16:11-0400 SaO2% (BldA) [Mass fraction] 98 % DO Jennifer Girivelisse Work Phone: [facility] 03-29-2023 16:11-0400 Systolic blood pressure 123 mm[Hg] DO Jennifer Girivelisse Work Phone: [facility] 03-29-2023 06:35-0400 Body height 165.1 cm DO Jennifer Duran Work Phone: [facility] 03-29-2023 06:35-0400 Body weight 87.5 kg DO Jennifer Duran Work Phone: [facility] 03-29-2023 05:41-0400 Diastolic blood pressure 85 mm[Hg] DO Jennifer Duran Work Phone: [facility] 03-29-2023 05:41-0400 Heart rate 110 /min DO Jennifer Duran Work Phone: [facility] 03-29-2023 05:41-0400 Respiratory rate 18 /min DO Jennifer Duran Work Phone: [facility] 03-29-2023 05:41-0400 SaO2% (BldA) [Mass fraction] 100 % DO Jennifer Girivelisse Work Phone: [facility] 03-29-2023 05:41-0400 Systolic blood pressure 160 mm[Hg] DO Jennifer Girvin Work Phone: [facility] 03-29-2023 01:39-0400 Body height 165.1 cm DO Jennifer Girivelisse Work Phone: [facility] 03-29-2023 01:39-0400 Body temperature 97.2 [degF] DO Jennifer Duran Work Phone: [facility] 03-29-2023 01:39-0400 Body weight 87 kg DO Jennifer Duran Work Phone: [facility] 02-06-2023 04:00-0400 Diastolic blood pressure 74 mm[Hg] DO Jennifer Duran Work Phone: [facility] 02-06-2023 04:00-0400 Heart rate 79 /min DO Jennifer Duran Work Phone: [facility] 02-06-2023 04:00-0400 Respiratory rate 15 /min DO Jennifer Duran Work Phone: [facility] 02-06-2023 04:00-0400 SaO2% (BldA) [Mass fraction] 99 % DO Jennifer Duran Work Phone: [facility] 02-06-2023 04:00-0400 Systolic blood pressure 119 mm[Hg] DO Jennifer Duran Work Phone: [facility] 02-05-2023 23:41-0400 Body height 165.1 cm DO Jennifer Duran Work Phone: [facility] 02-05-2023 23:41-0400 Body temperature 98 [degF] DO Jennifer Duran Work Phone: [facility] 02-05-2023 23:41-0400 Body weight 81.64 kg DO Jennifer Duran Work Phone: [facility] 01-12-2023 14:40-0400 Body height 165.1 cm Jennifer Duran Other [facility] [employer] Other 01-12-2023 14:40-0400 Body mass index (BMI) [Ratio] 33.44 kg/m2 Jennifer Duran Other [employer] [facility] [employer] Other 01-12-2023 14:40-0400 Body temperature 99.5 [degF] Jennifer Wilber Other [employer] Other 01-12-2023 14:40-0400 Body weight 91.17 kg Jennifer Wilber Other [employer] Other 01-12-2023 14:40-0400 Diastolic blood pressure 78 mm[Hg] Jennifer Wilber Other [employer] Other 01-12-2023 14:40-0400 Respiratory rate 18 /min Jennifer Duran Other [employer] Other 01-12-2023 14:40-0400 SaO2% (BldA) [Mass fraction] 97 % Jennifer Duran Other [employer] Other 01-12-2023 14:40-0400 Systolic blood pressure 110 mm[Hg] Jennifer Wilber Other [employer] Other 10-11-2022 16:20-0400 Body height 165.1 cm Jennifer Wilber Other [employer] Other 07-12-2022 16:20-0500 Body height 165.1 cm Jennifer Wilber Other [employer] Other 07-12-2022 16:20-0500 Body mass index (BMI) [Ratio] 31.2 kg/m2 Jennifer Wilber Other [employer] Other 07-12-2022 16:20-0500 Body temperature 97.2 [degF] Jennifer Duran Other [employer] Other 07-12-2022 16:20-0500 Body weight 85.05 kg Jennifer Duran Other [employer] Other 07-12-2022 16:20-0500 Diastolic blood pressure 74 mm[Hg] Jennifer Duran Other [facility] [employer] Other 07-12-2022 16:20-0500 Respiratory rate 18 /min Jennifer Duran Other [employer] [facility] [employer] Other 07-12-2022 16:20-0500 SaO2% (BldA) [Mass fraction] 99 % Jennifer Duran Other [facility] [employer] Other 07-12-2022 16:20-0500 Systolic blood pressure 106 mm[Hg] Jennifer Duran Other [facility] [employer] Other 04-28-2022 04:00-0500 Diastolic blood pressure 70 mm[Hg] DO Jennifer Duran Work Phone: [facility] 04-28-2022 04:00-0500 Heart rate 81 /min DO Jennifer Duran Work Phone: [facility] 04-28-2022 04:00-0500 SaO2% (BldA) [Mass fraction] 96 % DO Jennifer Duran Work Phone: [facility] 04-28-2022 04:00-0500 Systolic blood pressure 110 mm[Hg] DO Jennifer Duran Work Phone: [facility] 04-28-2022 03:56-0500 Body height 165.1 cm DO Jennifer Duran Work Phone: [facility] 04-28-2022 03:56-0500 Body weight 80 kg DO Jennifer Duran Work Phone: [facility] 04-28-2022 03:56-0500 Respiratory rate 18 /min DO Jennifer Duran Work Phone: [facility] 04-28-2022 00:13-0500 Body temperature 97.2 [degF] DO Jennifer Duran Work Phone: [facility] 04-12-2022 15:40-0400 Body height 165.1 cm Jennifer Duran Other [employer] Other 04-12-2022 15:40-0400 Body mass index (BMI) [Ratio] 30.37 kg/m2 Jennifer Duran Other [employer] Other 04-12-2022 15:40-0400 Body temperature 98.8 [degF] Jennifer Duran Other [employer] Other 04-12-2022 15:40-0400 Body weight 82.78 kg Jennifer Duran Other [employer] Other 04-12-2022 15:40-0400 Diastolic blood pressure 76 mm[Hg] Jennifer Duran Other [employer] Other 04-12-2022 15:40-0400 Respiratory rate 18 /min Jennifer Duran Other [employer] Other 04-12-2022 15:40-0400 SaO2% (BldA) [Mass fraction] 98 % Jennifer Duran Other [employer] Other 04-12-2022 15:40-0400 Systolic blood pressure 110 mm[Hg] Jennifer Duran Other [employer] Other 04-09-2022 13:32-0400 Body temperature 97.59 [degF] Chair Lei Work Phone: [facility] 04-09-2022 13:32-0400 Diastolic blood pressure 64 mm[Hg] Chair Bannock Work Phone: [facility] 04-09-2022 13:32-0400 Heart rate 114 /min Chair Bannock Work Phone: [facility] 04-09-2022 13:32-0400 Respiratory rate 18 /min Chair Bannock Work Phone: [facility] 04-09-2022 13:32-0400 SaO2% (BldA) [Mass fraction] 97 % Chair Bannock Work Phone: [facility] 04-09-2022 13:32-0400 Systolic blood pressure 116 mm[Hg] Chair Lei Work Phone: [facility] 03-26-2022 13:54-0400 Body temperature 97.9 [degF] Chair Bannock Work Phone: [facility] 03-26-2022 13:54-0400 Diastolic blood pressure 75 mm[Hg] Chair Bannock Work Phone: [facility] 03-26-2022 13:54-0400 Heart rate 82 /min Chair Lei Work Phone: [facility] 03-26-2022 13:54-0400 Respiratory rate 18 /min Chair Bannock Work Phone: [facility] 03-26-2022 13:54-0400 SaO2% (BldA) [Mass fraction] 100 % Chair Lei Work Phone: [facility] 03-26-2022 13:54-0400 Systolic blood pressure 106 mm[Hg] Chair Bannock Work Phone: [facility] 03-10-2022 13:54-0400 Body height 165.1 cm Madyson Ni APRN.LINE OUT WORKER Work Phone: [facility] 03-10-2022 13:54-0400 Body temperature 97.9 [degF] Madyson Ni APRN.LINE OUT WORKER Work Phone: [facility] 03-10-2022 13:54-0400 Body weight 83.37 kg Madyson Ni APRN.LINE OUT WORKER Work Phone: [facility] 03-10-2022 13:54-0400 Diastolic blood pressure 75 mm[Hg] Madyson Ni HEMATOLOGY NURSE EDUCATOR.LINE OUT WORKER Work Phone: [facility] 03-10-2022 13:54-0400 Heart rate 95 /min Madyson Ni HEMATOLOGY NURSE EDUCATOR.LINE OUT WORKER Work Phone: [facility] 03-10-2022 13:54-0400 Respiratory rate 16 /min Madyson Ni HEMATOLOGY NURSE EDUCATOR.LINE OUT WORKER Work Phone: [facility] 03-10-2022 13:54-0400 SaO2% (BldA) [Mass fraction] 100 % Madyson Ni HEMATOLOGY NURSE EDUCATOR.LINE OUT WORKER Work Phone: [facility] 03-10-2022 13:54-0400 Systolic blood pressure 130 mm[Hg] Madyson Ni HEMATOLOGY NURSE EDUCATOR.LINE OUT WORKER Work Phone: [facility] 12-04-2021 12:49-0400 Blood Pressure Location Yamilka Orzech [facility] 12-04-2021 12:49-0400 Body temperature 98.42 [degF] Yamilka Orzech [facility] 12-04-2021 12:49-0400 Diastolic blood pressure 82 mm[Hg] Yamilka Orzech [facility] 12-04-2021 12:49-0400 Heart rate 110 /min Yamilka Orzech [facility] 12-04-2021 12:49-0400 SaO2% (BldA) [Mass fraction] 99 % Yamilka Orzech [facility] 12-04-2021 12:49-0400 Systolic blood pressure 126 mm[Hg] Yamilka Orzech [facility] 10-16-2021 09:10-0400 Body height 165.1 cm Jennifer Duran Other [facility] [employer] Other 09-14-2021 19:31-0400 Diastolic blood pressure 82 mm[Hg] DO Jennifer Duran Work Phone: [facility] 09-14-2021 19:31-0400 Heart rate 87 /min DO Jennifer Duran Work Phone: [facility] 09-14-2021 19:31-0400 Respiratory rate 18 /min DO Jennifer Duran Work Phone: [facility] 09-14-2021 19:31-0400 SaO2% (BldA) [Mass fraction] 99 % DO Jennifer Duran Work Phone: [facility] 09-14-2021 19:31-0400 Systolic blood pressure 126 mm[Hg] DO Jennifer Duran Work Phone: [facility] 09-14-2021 14:45-0400 Body height 165.1 cm DO Jennifer Duran Work Phone: [facility] 09-14-2021 14:45-0400 Body mass index (BMI) [Ratio] 30.7 kg/m2 DO Jennifer Duran Work Phone: [facility] 09-14-2021 14:45-0400 Body temperature 98 [degF] DO Jennifer Duran Work Phone: [facility] 09-14-2021 14:45-0400 Body weight 83.91 kg DO Jennifer Duran Work Phone: [facility] 04-21-2021 16:20-0500 Body height 165.1 cm Jennifer Duran Other [facility] [employer] Other 04-21-2021 16:20-0500 Body mass index (BMI) [Ratio] 32.28 kg/m2 Jennifer Duran Other [employer] Other 04-21-2021 16:20-0500 Body temperature 98.3 [degF] Jennifer Duran Other [employer] Other 04-21-2021 16:20-0500 Body weight 88 kg Jennifer Duran Other [employer] Other 04-21-2021 16:20-0500 Diastolic blood pressure 82 mm[Hg] Jennifer Duran Other [employer] Other 04-21-2021 16:20-0500 SaO2% (BldA) [Mass fraction] 98 % Jennifer Duran Other [employer] Other 04-21-2021 16:20-0500 Systolic blood pressure 124 mm[Hg] Jennifer Duran Other [employer] Other Encounters Encounter Date Encounter Type Care Provider Facility Start: 06-24-2024 End: 06-25-2024 Emergency department patient visit Ritesh Heath [facility] Start: 06-11-2024 Emergency department patient visit Eran Chicas Facility:[facility] Start: 06-11-2024 End: 06-11-2024 Telephone encounter Kendra BACON Work Phone: [facility] Gynecology Oncology, A Department of [facility] Comment on above: Appointment Start: 06-11-2024 End: 06-11-[address] [facility] Start: 06-10-2024 End: 06-10-2024 ambulatory NO PCP NO PCP [facility] Start: 06-09-2024 End: 06-10-2024 Emergency department patient visit NO PCP NO PCP [facility] Start: 06-09-2024 End: 06-09-2024 Telephone encounter [facility]ent[facility] varghese Comment on above: abnormal CT Post-op Problem; Abd ominal Pain Start: 06-08-2024 Emergency department patient visit Jasmyn Magana Facility:[facility] Start: 06-05-2024 End: 06-05-2024 Emergency department patient visit NO PCP NO PCP [facility] Start: 05-27-2024 End: 05-28-2024 Emergency department patient visit ROSE HARDY [facility] Start: 04-09-2024 End: 04-10-2024 Salvador Stewart RN [facility] Comment on above: Endometriosis Start: 04-06-2024 End: 04-06-2024 Evaluation and management of inpatient NO PCP NO PCP [facility] Start: 04-05-2024 End: 04-05-2024 Emergency department patient visit NO PCP NO PCP [facility] Start: 04-03-2024 End: 04-03-2024 Admission to [facility] Phone Call Provider 2 [facility] Start: 04-03-2024 End: 04-03-2024 Evaluation and management of inpatient NO PCP NO PCP [facility] Start: 03-30-2024 Patient encounter status Adiel Aparicio MD Work Phone: [facility] Start: 03-28-2024 End: 03-28-2024 Office outpatient visit 40 minutes Adiel Aparicio MD Work [facility] Comment on above: Endometriosis (Prima ry Dx); Preop testing Start: 03-28-2024 End: 03-28-2024 Patient encounter status Adiel Aparicio MD Work Phone: [facility] Start: 03-28-2024 Encounter for other preprocedural examination ADIEL APARICIO [facility] Start: 03-28-2024 End: 03-28-2024 Orders Only Adiel Aparicio MD Work Phone: [facility] Gynecology Oncology Comment on above: Endometriosis (Prima ry Dx); Preop testing Start: 03-23-2024 End: 03-23-2024 ambulatory [facility] Work Phone: Start: 03-23-2024 End: 03-23-2024 Patient encounter procedure [facility] Work Phone: Start: 03-07-2024 End: 03-07-2024 Emergency department patient visit NO PCP NO PCP [facility] Start: 03-03-2024 End: 03-03-2024 Emergency department patient visit Davi Marie DO Work Phone: [facility] Start: 02-24-2024 End: 02-24-2024 Emergency department patient visit Ashley Delcid MD Work Phone: [facility] Start: 02-16-2024 End: 02-16-2024 Emergency department patient visit Jennifer Moore MD Work Phone: [facility] Start: 02-13-2024 End: 02-13-2024 Emergency department patient visit Ritesh Heath [facility] Start: 01-27-2024 End: 01-28-2024 Emergency department patient visit GUSTAVO DAVIES [facility] Start: 01-27-2024 End: 01-27-2024 Emergency department patient visit NO PCP NO PCP [facility] Start: 01-22-2024 End: 01-22-2024 Emergency department patient visit Eren Camejo DO Work Phone: [facility] ED Comment on above: Cyst of left ovary ( Primary Dx) Start: 01-19-2024 End: 01-19-2024 ambulatory DO Jennifer Duran Work Phone: [facility] Work Phone: Start: 01-19-2024 End: 01-19-2024 Patient encounter procedure DO Jennifer Duran Work Phone: [facility] Work Phone: Start: 12-07-2023 ambulatory DO Jennifer Holly roberts Work Phone: [facility] Work Phone: Start: 12-07-2023 Non-patient / Non-visit DO Ponce Duran Work Phone: [facility] Work Phone: Start: 11-25-2023 End: 11-25-2023 Patient encounter procedure DO Jennifer Duran Work Phone: [facility]-CT Scan [place] Work Phone: Start: 11-25-2023 End: 11-25-2023 ambulatory DO Jennifer Duran Work Phone: [facility] Work Phone: Start: 11-23-2023 End: 11-23-2023 ambulatory [facility] Start: 11-09-2023 End: 11-09-2023 ambulatory [facility] Start: 11-08-2023 End: 11-08-2023 Emergency department patient visit DO Jennifer Duran Work Phone: [facility]-Emergency Room Work Phone: Start: 11-08-2023 End: 11-08-2023 Emergency department patient visit Eren Mireles Emely DO Work Phone: [facility] ED Comment on above: Toothache (Primary D x) Start: 10-25-2023 End: 10-26-2023 Emergency department patient visit PARIS Dottie [facility] Start: 10-25-2023 End: 10-26-2023 Emergency department patient visit TARIK D [facility] Start: 10-25-2023 End: 10-25-2023 Emergency department patient visit NO PCP NO PCP [facility] Start: 10-25-2023 End: 10-26-2023 Emergency department patient visit PARIS Dottie [facility] Start: 10-19-2023 End: 10-19-2023 ambulatory TARUN BRADEN Not Available Start: 10-18-2023 End: 10-18-2023 ambulatory [facility] Work Phone: Start: 10-18-2023 End: 10-18-2023 Patient encounter procedure [facility] [place] Work Phone: Start: 09-29-2023 End: 09-30-2023 Emergency department patient visit Ritesh Heath [facility] Start: 09-26-2023 End: 09-26-2023 Emergency department patient visit Konstantin Penny [facility] Start: 09-06-2023 End: 09-06-2023 Emergency department patient visit [facility] Start: 07-31-2023 End: 07-31-2023 Emergency department patient visit Jignesh Dumont [facility] Start: 07-28-2023 End: 07-28-2023 ambulatory PHYSICIAN NO [facility] Work Phone: Start: 07-28-2023 End: 07-28-2023 Patient encounter procedure PHYSICIAN NO [facility] Physician [facility] [place] Work Phone: Start: 07-19-2023 End: 07-19-2023 ambulatory Jennifer Duran Other [employer] Other Start: 07-19-2023 Telephone encounter Jennifer Duran [facility] [place] Start: 06-22-2023 End: 06-23-2023 Emergency department patient visit EVGENY SEN MD Facility:[facility] Start: 06-07-2023 End: 06-07-2023 ambulatory Jennifer Duran Other [employer] Other Start: 06-07-2023 Telephone encounter Jennifer Duran [facility] [place] Start: 05-30-2023 End: 05-30-2023 Emergency department patient visit JACY Leos LES [facility] Start: 05-17-2023 End: 05-18-2023 Emergency department patient visit Ritesh Heath Facility[facility] Start: 05-16-2023 End: 05-16-2023 ambulatory Jennifer Duran Other [employer] Other Start: 05-16-2023 Telephone encounter Jennifer Duran [facility] [place] Start: 04-30-2023 End: 04-30-2023 Emergency department patient visit DO Jennifer Duran Work Phone: [facility]-Emergency Room Work Phone: Start: 04-24-2023 End: 04-24-2023 Emergency department patient visit Jignesh Dumont [facility] Start: 04-18-2023 End: 04-18-2023 ambulatory Jennifer Duran Other [employer] Other Start: 04-18-2023 Telephone encounter Jennifer Duran [facility] [place] Start: 04-11-2023 End: 04-11-2023 ambulatory Jennifer Duran Other [employer] Other Start: 04-11-2023 Telephone encounter Jennifer Duran [facility] [place] Start: 04-04-2023 End: 04-04-2023 ambulatory Jennifer Duran Other [employer] Other Start: 04-04-2023 Telephone encounter Jennifer Duran [facility] [place] Start: 04-02-2023 End: 04-03-2023 Emergency department patient visit DO Jennifer Duran Work Phone: [facility]-Emergency Room Work Phone: Start: 04-01-2023 End: 04-01-2023 ambulatory Jennifer Duran Other [employer] Other Start: 04-01-2023 Telephone encounter Jennifer Duran [facility] [place] Start: 03-29-2023 Telephone encounter Jennifer Duran [facility] [place] Start: 03-29-2023 End: 03-29-2023 Evaluation and management of inpatient DO Jennifer Duran Work Phone: [facility] C[facility] [place] [facility] Surg Work Phone: Start: 03-29-2023 End: 03-29-2023 observation encounter DO Jennifer Duran Work Phone: [facility] Work Phone: Start: 03-29-2023 End: 03-29-2023 ambulatory Jennifer Duran [employer] Other Start: 03-13-2023 End: 03-13-2023 ambulatory DO Jennifer Duran Work Phone: [facility] Work Phone: Start: 03-13-2023 End: 03-13-2023 Patient encounter procedure DO Jennifer Duran Work Phone: [facility]-Flu Vaccine Start: 03-02-2023 End: 03-02-2023 ambulatory Jennifer Duran Other [employer] Other Start: 03-02-2023 Telephone encounter Jennifer Duran [facility] Start: 02-05-2023 End: 02-06-2023 Emergency department patient visit DO Jennifer Duran Work Phone: [facility]-Emergency Room Work Phone: Start: 01-12-2023 End: 01-12-2023 ambulatory Jennifer Duran Other [employer] Other Start: 01-12-2023 Office outpatient vi sit 15 minutes Jennifer Duran [facility] Start: 12-09-2022 End: 12-09-2022 ambulatory Jennifer Duran Other [employer] Other Start: 12-09-2022 Telephone encounter Jennifer Duran [facility] Start: 10-11-2022 End: 10-11-2022 ambulatory Jennifer Duran Other [employer] Other Start: 10-11-2022 Telephone encounter Jennifer Wilber [facility] [place] Start: 09-22-2022 End: 09-22-2022 ambulatory Jennifer Duran Other [employer] Other Start: 09-22-2022 Telephone encounter Jennifer Wilber [facility] [place] Start: 07-28-2022 End: 07-28-2022 ambulatory BELKIS SANDOVAL Facility: Start: 07-12-2022 End: 07-12-2022 ambulatory Jennifer Duran Other [employer] Other Start: 07-12-2022 Office outpatient vi sit 15 minutes Jennifer Kendallivelisse [facility] Start: 07-12-2022 Telephone encounter Jennifer Duran [facility] [place] Start: 06-02-2022 End: 06-02-2022 ambulatory Jennifer Duran Other [employer] Other Start: 06-02-2022 Telephone encounter Jennifer Wilber [facility] [place] Start: 05-04-2022 End: 05-04-2022 ambulatory Jennifer Duran Other [employer] Other Start: 05-04-2022 Telephone encounter Jennifer Duran [facility] [place] Start: 04-30-2022 Telephone encounter Madyson arechiga APRN.LINE OUT WORKER Work Phone: Hematology/Oncology Comment on above: Lab Orders Start: 04-28-2022 Evaluation and management of inpatient DO Jennifer Wilber Work Phone: [facility] [place] Start: 04-28-2022 observation encounter DO Jennifer Duran Work Phone: [facility] Work Phone: Start: 04-12-2022 End: 04-12-2022 ambulatory Jennifer Duran Other [employer] Other Start: 04-12-2022 Office outpatient vi sit 15 minutes Jennifer Duran [facility] [place] Start: 04-12-2022 Telephone encounter Jennifer Duran [facility] Start: 04-09-2022 End: 04-10-2022 ambulatory Stephenie Suh 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 Comment on above: Art Therapy Iron deficiency anem ia due to chronic blood loss (Primary Dx); Malabsorption of iron; Cyst of left ovary Start: 03-26-2022 End: 03-27-2022 ambulatory MADYSON NI Facility:[facility] Start: 03-26-2022 End: 03-26-2022 ambulatory Chair Anton España Work Phone: Hematology/Oncology Comment on above: Iron deficiency anem ia due to chronic blood loss (Primary Dx); Malabsorption of iron; Cyst of left ovary Start: 03-15-2022 Telephone encounter Sharon HERNANDEZ H ematology/Oncology Comment on above: Social Work Services Start: 03-10-2022 End: 03-11-2022 ambulatory Madyson Ni HEMATOLOGY NURSE EDUCATOR.LINE OUT WORKER Work Phone: Hematology/Oncology Comment on above: Iron deficiency anem ia due to chronic blood loss (Primary Dx); Malabsorption of iron Start: 03-10-2022 End: 03-10-2022 Patient encounter procedure Madyson Ni HEMATOLOGY NURSE EDUCATOR.LINE OUT WORKER Work Phone: [facility] Start: 02-18-2022 Telephone encounter Madyson arechiga HEMATOLOGY NURSE EDUCATOR.LINE OUT WORKER Work Phone: Hematology/Oncology Comment on above: Lab Orders Start: 02-16-2022 End: 02-16-2022 ambulatory Jennifer Duran Other [facility] Other Start: 02-16-2022 Telephone encounter Jennifer Duran [facility] [place] Start: 02-12-2022 End: 02-12-2022 Patient encounter procedure DO Jennifer Duran Work Phone: [facility] [place] Start: 01-07-2022 End: 01-07-2022 ambulatory Jennifer Duran Other [employer] Other Start: 01-07-2022 Telephone encounter Jennifer Duran [facility] [place] Start: 12-04-2021 End: 12-04-2021 Patient encounter procedure Yamilka Lorenzo [facility] Start: 10-29-2021 End: 10-29-2021 ambulatory Jennifer Duran Other [facility] Other Start: 10-29-2021 Telephone encounter Jennifer Duran [facility] [place] Start: 10-16-2021 End: 10-16-2021 ambulatory Jennifer Duran Other [facility] Other Start: 10-16-2021 Office outpatient vi sit 15 minutes Jennifer Duran [facility] [place] Start: 09-21-2021 End: 09-21-2021 ambulatory Jennifer Duran Other [facility] Other Start: 09-21-2021 Telephone encounter Jennifer Duran [facility] [place] Start: 09-14-2021 End: 09-14-2021 Emergency department patient visit DO Jennifer Duran Work Phone: [facility]-Emergency Room Start: 08-18-2021 End: 08-18-2021 ambulatory Jennifer Duran Other [employer] Other Start: 08-18-2021 Telephone encounter Jennifer Duran [facility] [place] Start: 08-11-2021 End: 08-11-2021 ambulatory Jennifer Duran Other [facility] Other Start: 08-11-2021 Telephone encounter Jennifer Duran [facility] [place] Start: 08-03-2021 End: 08-03-2021 ambulatory Jennifer Duran Other [facility] Other Start: 08-03-2021 Telephone encounter Jennifer Duran [facility] [place] Start: 07-04-2021 End: 07-04-2021 Patient encounter procedure DO Jennifer Duran Work Phone: [facility] [place] Start: 06-04-2021 End: 06-04-2021 ambulatory Jennifer Duran Other [facility] Other Start: 06-04-2021 Telephone encounter Jennifer Duran [facility] [place] Start: 05-18-2021 End: 05-18-2021 ambulatory Jennifer Wilber Other [facility] Other Start: 05-18-2021 Telephone encounter Jennifer Duran [facility] [place] Start: 04-21-2021 End: 04-21-2021 ambulatory Jennifer Duran Other [facility] Other Start: 04-21-2021 Encounter for genera l adult medical examination without abnormal findings Jennifer Duran [facility] [place] Start: 04-21-2021 Periodic preventive med est patient 18-39 yrs Jennifer Duran [facility] Medicine [place] Procedures Date Procedure Procedure Detail Performing Clinician Start: 03-28-2024 Follow-up visit Follow-up ADIEL APARICIO Start: 02-24-2024 Urinalysis microscopic only Ashley Delcid MD Work Phone: Start: 02-24-2024 Urinalysis, reagent strip without microscopy Ashley Delcid MD Work Phone: Start: 02-24-2024 Complete blood count with white cell differential, automated Ashley Delcid MD Work Phone: Start: 02-24-2024 End: 02-24-2024 Comprehensive metabolic panel Ashley Delcid MD Work Phone: Start: 02-16-2024 Ct [...] Start: 03-29-2023 Pelvic echography DO Da vid Wilber Work Phone: Start: 02-06-2023 Pelvic echography DO Da vid Wilber Work Phone: Start: 02-06-2023 Transvaginal echography DO [...] Start: 09-14-2021 Pelvic echography DO Da vid Girivelisse Work Phone: Start: 09-14-2021 Transvaginal echography DO Jennifer Duran Work Phone: Cholecystectomy Ritesh Lynnboris teddy Hysterectomy Ritesh Heath Plan of Treatment Date Care Activity Detail Author Start: 06-10-2025 Adult BMI Screening Adult BMI Screen ing [facility] Start: 06-09-2025 Adult BMI Screening Adult BMI Screen ing [facility] Start: 06-09-2025 Tobacco Screening Tobacco Screening [facility] Start: 04-06-2025 Adult BMI Screening Adult BMI Screen ing [facility] Start: 04-06-2025 Tobacco Screening Tobacco Screening [facility] Start: 04-03-2025 Adult BMI Screening Adult BMI Screen ing [facility] Start: 04-03-2025 Tobacco Screening Tobacco Screening [facility] Start: 03-28-2025 Adult BMI Screening Adult BMI Screen ing [facility] Start: 03-07-2025 Adult BMI Screening Adult BMI Screen ing [facility] Start: 03-07-2025 Tobacco Screening Tobacco Screening [facility] Start: 11-25-2024 Screening for malign ant neoplasm of cervix Pap Smear [facility] Start: 04-20-2024 End: 04-20-2024 Patient encounter procedure 04/20/2024 1:30 PM EST Office [facility] [address] [facility] [address] [place] [address] Shanae Frankel PA [address], [address] [place] [id number] [facility] Start: 04-06-2024 End: 04-06-2024 Admission to same day surgery center [facility] Comment on above: DAVINCI HYSTERECTOMY SALPINGECTOMY DAVINCI DV5 SALPINGO OOPHORECTOMY Start: 04-06-2024 End: 04-06-2024 DAVINCI DV5 SALPINGO OOPHORECTOMY DAVINCI DV5 SALPINGO OOPHORECTOMY endometriosis /pelvic pain 04/06/2024 11:00 AM EDT [facility] Start: 04-06-2024 End: 04-06-2024 DAVINCI HYSTERECTOMY SALPINGECTOMY DAVINCI HYSTERECTOMY SALPINGECTOMY endometriosis /pelvic pain 04/06/2024 11:00 AM EDT [facility] Start: 04-06-2024 End: 04-06-2024 Laparoscopy w/rmvl adnexal structures [facility] Start: 04-06-2024 Subsequent hospital visit by physician 04/06/2024 11:00 AM EDT Hospital Encounter [facility] [address] [place] [address] Adiel Aparicio MD [address] [place] [address], [address] [place] [address] [facility] Start: 04-03-2024 End: 04-03-2024 Admission to establishment 04/03/2024 3:45 PM EDT Support Visit [facility] On [address] [phone] [facility] Start: 02-12-2024 COVID-19 VACCINE ( season) COVID-19 VACCINE ( season) [facility] Start: 02-12-2024 COVID-19 Vaccine ( season) COVID-19 Vaccine ( season) [facility] Start: 02-12-2024 Influenza vaccination [facility] Start: 01-12-2024 Influenza vaccination Flu vaccine (# 1) [facility] Start: 12-07-2023 Patient referral [place] Work Phone: Start: 03-30-2023 Comprehensive metabo lic 2000 panel - Serum or Plasma [facility] Start: 03-30-2023 [facility] Start: 03-29-2023 [facility] Start: 03-29-2023 Referral to editorial cartoonist [facility] Start: 03-29-2023 Hospital admission [facility] Start: 03-29-2023 [facility] Start: 03-29-2023 Computed tomography of abdomen and pelvis with contrast CT abdomen pelvis w con [facility] Start: 03-29-2023 CT Abdomen and Pelvi s W contrast IV [facility] Start: 03-29-2023 Transvaginal echography US transvagi nal [facility] Start: 03-29-2023 US Pelvis transvaginal [facility] Start: 03-29-2023 Pelvic echography US pelvic complete [facility] Start: 03-29-2023 US Pelvis [facility] Start: 02-11-2023 COVID-19 Vaccine () COVID-19 Vaccine () [facility] Start: 02-06-2023 Pelvic echography US pelvic complete [facility] Start: 02-06-2023 US Pelvis [facility] Start: 02-06-2023 Transvaginal echography US transvagi [facility] Start: 02-06-2023 US Pelvis transvaginal [facility] Start: 02-05-2023 Computed tomography of abdomen and pelvis with contrast CT abdomen pelvis w [facility] Start: 02-05-2023 CT Abdomen and Pelvi s W contrast IV [facility] Start: 05-05-2022 End: 07-05-2022 CBC W Auto Differential panel - Blood CBC + DIFF Lab Routine Iron deficiency anemia due to chronic blood loss Malabsorption of iron Expected: 05/05/2022, Expires: 07/05/2022 [facility] Work Phone: Comment on above: Expected: 05/05/2022 , Expires: 07/05/2022 Start: 05-03-2022 End: 07-03-2022 Comprehensive metabolic 2000 panel - Serum or Plasma COMP METABOLIC PANEL Lab Routine Iron deficiency anemia due to chronic blood loss Expected: 05/03/2022, Expires: 07/03/2022 [facility] Work Phone: Comment on above: Expected: 05/03/2022 , Expires: 07/03/2022 Start: 04-28-2022 Pelvic echography US pelvic complete [facility] Start: 04-28-2022 US Pelvis [facility] Start: 04-28-2022 CT Abdomen and Pelvi s WO contrast [facility] Start: 04-28-2022 CT of abdomen and pe lvis without contrast CT abdomen pelvis wo con [facility] Start: 04-28-2022 Transvaginal echography US transvagi nal [facility] Start: 04-28-2022 US Pelvis transvaginal [facility] Start: 02-23-2022 End: 02-20-2023 CBC W Auto Differential panel - Blood CBC + DIFF Lab Routine Iron deficiency anemia due to chronic blood loss Expected: 02/23/2022 (Approximate), Expires: 02/20/2023 [facility] Work Phone: Comment on above: Expected: 02/23/2022 (Approximate), Expires: 02/20/2023 Start: 02-23-2022 End: 02-20-2023 Cobalamin (Vitamin B12) [Mass/volume] in Serum or Plasma VITAMIN B12 BLOOD Lab Routine Iron deficiency anemia due to chronic blood loss Expected: 02/23/2022 (Approximate), Expires: 02/20/2023 [facility] Work Phone: Comment on above: Expected: 02/23/2022 (Approximate), Expires: 02/20/2023 Start: 02-23-2022 End: 02-20-2023 Comprehensive metabolic 2000 panel - Serum or Plasma COMP METABOLIC PANEL Lab Routine Iron deficiency anemia due to chronic blood loss Expected: 02/23/2022 (Approximate), Expires: 02/20/2023 [facility] Work Phone: Comment on above: Expected: 02/23/2022 (Approximate), Expires: 02/20/2023 Start: 02-23-2022 End: 02-20-2023 Ferritin [Mass/volume] in Serum or Plasma FERRITIN BLD Lab Routine Iron deficiency anemia due to chronic blood loss Expected: 02/23/2022 (Approximate), Expires: 02/20/2023 [facility] Work Phone: Comment on above: Expected: 02/23/2022 (Approximate), Expires: 02/20/2023 Start: 02-23-2022 End: 02-20-2023 Folate [Mass/volume] in Serum or Plasma FOLATE SERUM Lab Routine Iron deficiency anemia due to chronic blood loss Expected: 02/23/2022 (Approximate), Expires: 02/20/2023 [facility] Work Phone: Comment on above: Expected: 02/23/2022 (Approximate), Expires: 02/20/2023 Start: 02-23-2022 End: 02-20-2023 Iron and Iron binding capacity panel - Serum or Plasma IRON + TIBC Lab Routine Iron deficiency anemia due to chronic blood loss Expected: 02/23/2022 (Approximate), Expires: 02/20/2023 [facility] Work Phone: Comment on above: Expected: 02/23/2022 (Approximate), Expires: 02/20/2023 Start: 02-11-2022 Influenza vaccination INFLUENZA (#1) [facility] Start: 06-13-2021 DEPRESSION ASSESSMENT DEPRESSION ASS ESSMENT [facility] Start: 11-30-2020 COVID-19 VACCINE (3 - Booster for Moderna series) COVID-19 VACCINE (3 - Booster for Moderna series) [facility] Start: 08-27-2020 COVID-19 VACCINE (3 - Booster for Moderna series) COVID-19 VACCINE (3 - Booster for Moderna series) [facility] Start: 2017 HPV TESTING HPV TESTING [facility] Start: 2017 Screening for malign ant neoplasm of cervix [facility] Start: 01-11-2008 PAP TESTING PAP TESTING [facility] Start: 01-11-2008 Screening for malign ant neoplasm of cervix [facility] Start: 2006 DTaP,Tdap and Td Vaccines (1 - Tdap) DTaP,Tdap and Td Vaccines (1 - Tdap) [facility] Start: 2006 DTaP/Tdap/Td vaccine (1 - Tdap) DTaP/Tdap/Td vaccine (1 - Tdap) [facility] Start: 2006 Hepatitis B vaccination HEP B VACCINE (1 of 3 - 19+ 3-dose series) [facility] Start: 2006 Hepatitis B vaccine (1 of 3 - 19+ 3-dose series) Hepatitis B vaccine (1 of 3 - 19+ 3-dose series) [facility] Start: 2006 Third diphtheria, tetanus and acellular pertussis (DTaP) vaccination TDAP (ADULT) [facility] Start: 2006 Urine microalbumin profile DTAP,TDAP,TD (1 - Tdap) [facility] Start: 2005 Adult BMI Follow Up Plan Adult BMI Follow Up Plan [facility] Start: 2005 HEPATITIS C SCREENING HEPATITIS C SC REENING [facility] Start: 2005 Hepatitis C screening Hepatitis C sc reen [facility] Start: 2005 HIV SCREENING HIV SCREENING [facility] Start: 2002 HIV screening [facility] Start: 01-11-2000 Varicella vaccine (1 of 2 - 13+ 2-dose series) Varicella vaccine (1 of 2 - 13+ 2-dose series) [facility] Start: 1999 Adult depression screening assessment DEPRESSION SCREENING [facility] Start: 1999 Depression Screen Depression Screen [facility] Start: 01-11-1988 Varicella vaccine (1 of 2 - 2-dose childhood series) Varicella vaccine (1 of 2 - 2-dose childhood series) [facility] Start: 1987 HEPATITIS B (1 of 3 - 3-dose series) HEPATITIS B (1 of 3 - 3-dose series) [facility] Start: 1987 Hepatitis B vaccine (1 of 3 - 3-dose series) Hepatitis B vaccine (1 of 3 - 3-dose series) [facility] Start: 1987 Hepatitis C screening HEPATITI S C VIRUS SCREENING [facility] Start: 1987 Tetanus vaccination TETANUS [facility] CT Sinuses WO contrast [facility] Patient Education [facility] Work Phone: Patient referral [facility] Work Phone: End: 02-16-2024 Standard ECG ECG ECG STAT One Time for 1 Occurrences starting 02/16/2024 until 02/16/2024 [facility] Comment on above: One Time for 1 Occur rences starting 02/16/2024 until 02/16/2024 End: 03-28-2025 Type and screen(includes indirect saw) Type and screen(includes indirect saw) Blood Bank Routine Endometriosis Preop testing 1 Occurrences starting 03/28/2024 until 03/28/2025 [facility] Work Phone: Comment on above: 1 Occurrences starti ng 03/28/2024 until 03/28/2025 [facility] Immunizations Immunization Date Immunization Notes Care Provider Iraj cevallos 06-09-2023 influenza, injectable, quadrivalent, contains preservative [facility] 06-09-2023 influenza virus vaccine, unspecified formulation Jennifer Moore MD Work Phone: [facility] 03-13-2023 influenza, injectable, quadrivalent, preservative free Jennifer Duran Other [facility] 03-31-2021 influenza, seasonal, injectable Jennifer Duran Other [facility] 07-02-2020 COVID-19 Vaccine Moderna - Documentation Purposes Only Jennifer Duran Other [facility] 06-04-2020 COVID-19 Vaccine Moderna - Documentation Purposes Only Jennifer Duran Other [facility] 12-10-2008 measles, mumps and rubella virus vaccine Yamilka Lorenzo [facility] NEGATED: Highlighted row has not occurred!03-23-2019 influenza, seasonal, injectable Patient Objection Jennifer Duran Other [facility] Payers Date Payer Category Payer Self-pay [id number] 2020 [facility] Managed Care - Other [facility] [id number] 2018 Unknown [id number]. 1.13.159. 2.7.3.269411.315 1987 Unknown [id number] 2.16.840.1.660987.3.579. 2.593 1987 Unknown [id number] 2.16.840.1.019406.3.579. 2.182 1987 Unknown [id number] 2.16.840.1.656118.3.579. 2.1259 1987 Unknown [id number] 2.16.840.1.142539.3.579. 2.727 1987 Unknown [id number] 2.16.840.1.712837.3.579. 2.727 1987 Unknown [id number] 2.16.840.1.811965.3.579. 2.727 1987 Unknown [id number] 2.16.840.1.408632.3.579. 2.727 1987 Unknown [id number] 2.16.840.1.232033.3.579. 2.727 1987 Unknown [id number] 2.16.840.1.394395.3.579. 2.727 1987 Unknown [id number] 2.16.840.1.064720.3.579. 2.983 1987 Unknown [id number] 2.16.840.1.395234.3.579. 2.983 1987 Unknown [id number] 2.16.840.1.640593.3.579. 2.983 1987 Unknown [id number] 2.16.840.1.266031.3.579. 2.1286 1987 Unknown [id number] 2.16.840.1.249814.3.579. 2.1286 1987 Unknown [id number] 2.16.840.1.120680.3.579. 2.1286 1987 Unknown [id number] 2.16.840.1.258472.3.579. 2.174 1987 Unknown [id number] 2.16840.1.184430.3.579. 2.174 1987 Unknown [id number] 2.16.840.1.029672.3.579. 2.174 1987 Unknown [id number] 2.16.840.1.673599.3.579. 2.174 1987 Unknown [id number] 2.16.840.1.005851.3.579. 2.1286 1987 Unknown [id number] 2.16.840.1.261540.3.579. 2.128 1987 Unknown [id number] 2.16.840.1.157634.3.579. 2.128 1987 Unknown [id number] 2.16.840.1.851784.3.579. 2.128 1987 Unknown [id number] 2.16.840.1.284045.3.579. 2.1286 1987 Unknown [id number] 2.16.840.1.422992.3.579. 2.1285 1987 Unknown [id number] 2.16.840.1.236480.3.579. 2.1285 1987 Unknown [id number] 2.16.840.1.160138.3.579. 2.1285 1987 Unknown [id number] 2.16.840.1.677871.3.579. 2.1285 1987 Unknown [id number] 2.16.840.1.959370.3.579. 2.1285 1987 Unknown [id number] 2.16.840.1.077051.3.579. 2.1285 1987 Unknown [id number] 2.16.840.1.400418.3.579. 2.1285 1987 Unknown [id number] 2.16840.1.343764.3.579. 2.1285 1987 Unknown [id number] 2.16.840.1.279924.3.579. 2.1285 1987 Unknown [id number] 2.16.840.1.360191.3.579. 2.1285 1987 Unknown [id number] 2.16.840.1.345523.3.579. 2.1285 1987 Unknown [id number] 2.16.840.1.800047.3.579. 2.1285 1987 Unknown [id number] 2.16.840.1.776821.3.579. 2.8 1959 Unknown [id number] Unknown [id number] Unknown [id number] Unknown [id number] Unknown [id number] 2.840.1.121471.3.579. 2.531 Unknown [id number] 2.0.1.115447.3.579. 2.531 Unknown [id number] 2.840.1.307819.3.579. 2.531 Unknown [id number] 2.840.1.006603.3.579. 2.531 Unknown [id number] 2.840.1.173428.3.579. 2.531 Social History Date Type Detail Facility Start: 09-14-2021 End: 12-04-2021 Tobacco smoking status NCIS Never smoked tobacco (finding) [facility] Start: 1985 Sex Assigned At Female [facility] Tobacco smoking status Never [facility] Start: 05-30-2023 End: 06-10-2024 Sex Assigned At Female [facility] Other Start: 04-05-2018 End: 05-25-2023 Tobacco use and exposure Smokeless tobacco non-user [facility] Start: 10-27-2020 End: 06-09-2024 Alcohol intake Current drinker of alcohol (finding) [facility] Start: 04-05-2018 End: 05-25-2023 History SDOH Alcohol Comment socially [facility] Start: 1985 Sex Assigned At Not on file [facility] Start: 02-06-2022 End: 04-09-2022 Exposure to SARS-CoV-2 (event) Not sure [facility] History of tobacco use Passive smoker [facility] Start: 09-05-2023 End: 01-22-2024 Alcohol intake Not Asked [employer] [facility] Start: 05-30-2023 End: 06-10-2024 History of Social function [employer] How often to you hav e a drink containing alcohol? Monthly or less [employer] How many standard drinks containing alcohol do you have on a typical day? 1 or 2 [employer] How often do you hav e 6 or more drinks on 1 occasion? Less than monthly [employer] Start: 05-30-2023 Alcohol Comment social [employer] [facility] Tobacco smoking stat [facility] Tobacco smoking consumption unknown [facility] Start: 01-14-2015 Sex Female (finding) [facility] [employer] Start: 04-03-2024 [facility] Goals Date Patient Goal Desired Activity /State Functional Status Date Assessment Result Facility 06-24-2024 Functional Status N/A [facility] 02-13-2024 Functional Status N/A [facility] 09-29-2023 Functional Status N/A [facility] 09-26-2023 Functional Status N/A [facility] 07-31-2023 Functional Status N/A [facility] 04-24-2023 Functional Status N/A [facility] 03-29-2023 Functional status Patient at Baseline [facility] Work Phone: 12-04-2021 Functional Status N/A [facility] Mental Status Date Assessment Result Facility 03-29-2023 Cognitive function Cognitive Sta tus Patient at Baseline [facility] Work Phone: Clinical Notes 03-19-2019 to 06-25-2024 Note Date & Type Note Facility 06-25-2024 Hospital Discharg e instructions Patient Education 06/25/2024 02:47:57 Abdominal Pain, Adult Abdominal Pain, Adult Pain in the abdomen (abdominal pain) can be caused by many things. In most cases, it gets better with no treatment or by being treated at home. But in some cases, it can be serious. Your health care provider will ask questions about your medical history and do a physical exam to try to figure out what is causing your pain. Follow these instructions at home: Medicines Take [id number] and prescription medicines only as told by your provider. Do not take medicines that help you poop (laxatives) unless told by your provider. General instructions Watch your condition for any changes. Drink enough fluid to keep your pee (urine) pale yellow. Contact a health care provider if: Your pain changes, gets worse, or lasts longer than expected. You have severe cramping or bloating in your abdomen, or you vomit. Your pain gets worse with meals, after eating, or with certain foods. You are constipated or have diarrhea for more than 2 3 days. You are not hungry, or you lose weight without trying. You have signs of dehydration. These may include: ?Dark pee, very little pee, or no pee. ?Cracked lips or dry mouth. ?Sleepiness or weakness. You have pain when you pee (urinate) or poop. Your abdominal pain wakes you up at night. You have blood in your pee. You have a fever. Get help right away if: You cannot stop vomiting. Your pain is only in one part of the abdomen. Pain on the right side could be caused by appendicitis. You have bloody or black poop (stool), or poop that looks like tar. You have trouble breathing. You have chest pain. These symptoms may be an emergency. Get help right away. Call 911. Do not wait to see if the symptoms will go away. Do not drive yourself to the hospital. This information is not intended to replace advice given to you by your health care provider. Make sure you discuss any questions you have with your health care provider. Document Revised: 03/16/2023 Document Reviewed: 03/16/2023 [employer] Patient Education 2023 Optimal+. Follow Up Care 06/24/2024 19:25:17 With:Jacy CHIRINOS Address: [address] [place] [address] Business (1) When:06/28/2024 [facility] 06-24-2024 Evaluation + Plan note Extrac flo from: Title:ED Note Author:Ritesh Heath DO Date :06/24/24 Abdominal pain, acute (R10.9 : Unspecified abdominal pain) Ordered: acetaminophen-oxycodone, 1 tab(s), Oral, q8hr for 3 day(s), 9 tab(s), Refill(s) 0, [id number], 165, cm, 06/24/24 19:33:00 EST, Height/Length Dosing, 89.9, kg, 06/24/24 19:33:00 EST, Weight Dosing Orders: acetaminophen-oxycodone, 1 tab(s), Tab, Oral, Once, Stop date 06/25/24 2:37:00 EST, STAT, Start date 06/25/24 2:37:00 EST HYDROmorphone, 1 mg = 1 mL, Injection, IntraMuscular, Once, Stop date 06/25/24 0:45:00 EST, STAT, Start date 06/25/24 0:45:00 EST, 06/25/24 0:45:00 EST HYDROmorphone, 0.5 mg = 0.5 mL, Injection, IntraMuscular, Once, Stop date 06/24/24 23:34:00 EST, STAT, Start date 06/24/24 23:34:00 EST, 06/24/24 23:34:00 EST Add on Test Basic Metabolic Panel C-Reactive Protein CBC w/ Auto Diff CT Abdomen/Pelvis w/o Contrast eGFR Hepatic Function Panel Lipase Level Sedimentation Rate Automated U Beta Hcg Qual UA with Cult Rflx [facility] 12-30-2024 NoteEducation Materials Obstetrics and Gynecology Ovarian Cyst An ovarian cyst is a fluid-filled sac on an ovary. Most of these cysts go away on their own and arenot cancer. Some cysts need treatment. What are the causes? ? Ovarian hyperstimulation syndrome. Some medicines may lead to this problem. ? Polycystic ovarian syndrome (PCOS). Problems with body chemicals (hormones) can lead to this condition. ? The normal menstrual cycle. What increases the risk? ? Being overweight or very overweight. ? Taking medicines to increase your chance of getting . ? Using some types of control. ? Smoking. What are the signs or symptoms? Many ovarian cysts do not cause symptoms. If you get symptoms, you may have: ? Pain or pressure in the area between the hip bones. ? Pain in the lower belly. ? Pain during sex. ? Swelling in the lower belly. ? Periods that are not regular. ? Pain with periods. How is this treated? Many ovarian cysts go away on their own without treatment. If you need treatment, it may include: ? Medicines for pain. ? Fluid taken out of the cyst. ? The cyst being taken out. ? control pills or other medicines. ? Surgery to remove the ovary. Follow these instructions at home: ? Take zerx-vga-gjtdujx and prescription medicines only as told by your doctor. ? Ask your doctor if you should avoid driving or using machines while you are taking your medicine. ? Get exams and Pap tests as told by your doctor. ? Return to your normal activities when your doctor says that it is safe. ? Do not smoke or use any products that contain nicotine or tobacco. If you need help quitting, askyour doctor. ? Keep all follow-up visits. Contact a doctor if: ? Your periods: ? Are late. ? Are not regular. ? Stop. ? Are painful. ? You have pain in the area between your hip bones, and the pain does not go away. ? You feel pressure on your bladder. ? You have trouble peeing. ? You feel full, or your belly hurts, swells, or bloats. ? You gain or lose weight without trying, or you are less hungry than normal. ? You feel pain and pressure in your back. ? You feel pain and pressure in the area between your hip bones. ? You think you may be . Get help right away if: ? You have pain in your belly that is very bad or gets worse. ? You have pain in the area between your hip bones, and the pain is very bad or gets worse. ? You cannot eat or drink without vomiting. ? You get a fever or chills all of a sudden. ? Your period is a lot heavier than usual. Summary ? An ovarian cyst is a fluid-filled sac on an ovary. ? Some cysts may cause problems and need treatment. ? Most of these cysts go away on their own. This information is not intended to replace advice given to you by your health care provider. Make sure you discuss any questions you have with your health care provider. Document Revised: 10/31/2020 Document Reviewed: 11/06/2020 [employer] Patient Education ? 2023 Optimal+.[facility] [id number] Miscellaneous Notes* Telephone Encounter - Shefali Rodriguez - 06/11/2024 8:57 AM EST Narrow Gauge Operator left voicemail to schedule a H/F with Kendra in [place]. [facility] Telephone encounter Note* Telephone Encounter - Shefali Michael - 06/11/2024 8:57 AM EST Narrow Gauge Operator left voicemail to schedule a H/F with Kendra in [place]. [facility]12[facility] Miscellaneous Notes* Telephone Encounter - Isabelljacob Lentz - 06/09/2024 9:25 PM EST Contract: [address] kidd abdominal pain, post-op Relayed info to Dr Woo on cell and transferred documented in this encounterFort [facility]12-28-[facility]24 Telephone encounter Note* Telephone Encounter - Isabell Lentz - 06/09/2024 9:25 PM EST Contract: 166 [address] Bettye kidd abdominal pain, post-op Relayed info to Dr Woo on cell and transferred [facility]12[facility] Miscellaneous Notes* Telephone Encounter - Isabell Lentz - 06/09/2024 8:05 PM EST Contract: [address] [facility] [address] Bradley kidd abnormal CT, post-op Relayed info to Dr Woo on cell and transferred documented in this encounterFort [facility]12-28-2024 Telephone encounter Note* Telephone Encounter - Isabell Lentz - 06/09/2024 8:05 PM EST Contract: [address] [facility] [address] Bradley kidd abnormal CT, post-op Relayed info to Dr Woo on cell and transferred [facility]12-27-2024 NoteEducation Materials Obstetrics and Gynecology Endometriosis Follow-up with your ASSISTANT BOILER OPERATOR to review this emergency department visit and for further evaluation of your abdominal pain. Endometriosis is a condition in which tissue that forms the lining of the uterus grows in places outside the uterus. This tissue can grow in the organs that create the eggs (ovaries), in the tubes that carry the eggs to the uterus (fallopian tubes), in the vagina, and in the bowel. This tissue mostoften grows on the ovaries and inner lining of the pelvic cavity (peritoneum). What are the causes? The cause of this condition is not known. What increases the risk? The following factors may make you more likely to develop this condition: ? Having a family history of endometriosis. ? Having never given . ? Starting your menstrual period at age 10 or younger. What are the signs or symptoms? Often, there are no symptoms of this condition. If you do have symptoms, they may include: ? Heavier bleeding during menstrual periods. ? Menstrual periods that happen more than once a month. ? Not being able to get . ? Pain in the area between your hip bones (pelvis). ? Pain during sex. ? Pain in the back or abdomen. ? Painful bowel movements and urination during menstrual periods. Rarely, you may see blood in yourstool or urine. The timing of symptoms may vary, depending on where the abnormal tissue is growing. ? They may happen during your menstrual period (most often) or at the middle of your cycle. ? They may come and go. You may have no symptoms during some months. ? They may stop when you no longer have your monthly periods (menopause). How is this diagnosed? This condition is diagnosed based on your symptoms and a physical exam. You may also have tests, such as: ? Blood tests and urine tests to help rule out other causes. ? Ultrasound to look for tissues that are not normal. This is often done over your skin (transabdominal). It is sometimes done through the vagina (transvaginal). ? X-ray of the lower bowel (barium enema). ? CT scan. ? MRI. To confirm the diagnosis, your health care provider may use a device with a small camera to check tissue inside your abdomen (laparoscopy). Abnormal tissue may be removed and checked in a lab (biopsy). How is this treated? There is no cure for this condition. The treatment goal is to control your symptoms. The type of treatment also depends on whether you want to become in the future. This condition may be treated with: ? Medicines. These may include: ? Medicines to relieve pain, including NSAIDs, such as ibuprofen. ? Hormone therapy, such as control pills, to slow the growth of abnormal tissue. ? Surgery to remove the abnormal tissue. During surgery, the following may happen: ? Tissue may be removed using a laparoscope and a laser (laparoscopic laser treatment). ? The ovaries, fallopian tubes, and uterus may be removed (hysterectomy). This is done in very severe cases. Follow these instructions at home: Medicines ? Take gpzb-ijn-rkyfddn and prescription medicines only as told by your health care provider. ? Ask your health care provider if the medicine prescribed to you: ? Requires you to avoid driving or using machinery. ? Can cause constipation. You may need to take these actions to prevent or treat constipation: ? Drink enough fluid to keep your urine pale yellow. ? Take ctou-shx-vlvnqdv or prescription medicines. ? Eat foods that are high in fiber, such as beans, whole grains, and fresh fruits and vegetables. ? Limit foods that are high in fat and processed sugars, such as fried or sweet foods. Eating and drinking ? If you drink alcohol: ? Limit how much you have to 0?1 drink a day for women who are not . ? Know how much alcohol is in your drink. In the [place] one drink equals one 12 oz bottle of beer (355 mL), one 5 oz glass of wine (148 mL), or one 1? oz glass of hard liquor (44 mL). ? Avoid caffeine. Activity ? Return to your normal activities as told by your health care provider. Ask your health care provider what activities are safe for you. ? Do exercises as told by your health care provider. General instructions ? Do not use any products that contain nicotine or tobacco. These products include cigarettes, chewing tobacco, and vaping devices, such as e-cigarettes. If you need help quitting, ask your health care provider. ? Keep all follow-up visits. This is important. Where to find more information ? [employer]: www.acog.org ? Office on Women's Health: www.womenshealth.gov Contact a health care provider if: ? You have new pain or trouble controlling pain. ? You have problems getting . ? You have a fever. Get help right away if: ? You have severe pain that does not get better with medicine. ? You have severe nausea and vomiting, or you (more content not included)... [facility] [id number] Miscellaneous Notes* Telephone Encounter - Nunu Stewart RN - 04/09/2024 4:47 PM EDT Patient left VM on Rx refill line requesting 1-2 day supply refill on oxycodone. Patient had hysterectomy on Friday 04/06 and states she is still experiencing slight pain. documented in this encounterFort [facility]10-28-[facility]24 Telephone encounter Note* Telephone Encounter - Nunu Stewart RN - 04/09/2024 4:47 PM EDT Patient left VM on Rx refill line requesting 1-2 day supply refill on oxycodone. Patient had hysterectomy on Friday 04/06 and states she is still experiencing slight pain. [facility] Instructions* Pre-Procedure Instructions - Lucy Dennison RN - 04/03/2024 3:45 PM EDT Your surgery/procedure is scheduled at [facility] on 04/06 at 1100 Arrival Time 0900 [facility] Address: [address] [place] [address]. [place] [address] [address] in [address] Parking lot located on [facility]. Report to the Entrance B. Check in at the information desk the surgery. The waiting room located on the second floor. If you have any questions prior to surgery, please call Pre-Admission Clinic at [phone] between 7:30 am and 4:30 pm Tuesday through Tuesday. If you have questions the morning of surgery, please call the Pre-op Department at [phone]. Notify your SURGEON if you develop any [...] specifically instructed by your surgeon to hold. STOPtaking all herbal products/teas one week prior to [...] piercings ,hair extensions that contain metal, nail swedish, make-up, and contact lens. You may brush [...] items and leave them in the car untilyou are taken to your room after surgery. [...] following some types of surgeries involving the eyes,ears, sinuses and throat. Always follow your doctor's [...] RIGHTS AND RESPONSIBILITIES As a patient at [facility], you have the right to: Receive medical care and be informed of who is taking care of you Be treated with dignity and respect Have a family member/sales representative facility services of choice and your physician notified of your admission Receive information and actively participate in decisions about your care and treatment Refuse care, treatment and services Decide who may provide your support and speak for you Access mandaeism and spiritual services Participate in ethical issues [...] of hospital charges and payment methods Patient/patient sales representative facility services responsibilities are to: Provide information about health status to facilitate care, treatment and services Follow the treatment, plan, keep appointments and speak up when you do not understand the plan Respect the rights of other patients and healthcare personnel Follow organizational rules and regulations that support quality care and a safe environment Fulfill financial obligations as promptly as possible [facility]10-[facility] Miscellaneous Notes* Pre-Procedure Instructions - Lucy Dennison RN - 04/03/2024 3:45 PM EDT Your surgery/procedure is scheduled at [facility] on 04/06 at 1100 Arrival Time 0900 [facility] Address: [address] [place] [address]. [address]ing lot located on [facility]. Report to the Entrance B. Check in at the information desk the surgery. The waiting room located on the second floor. If you have any questions prior to surgery, please call Pre-Admission Clinic at [phone] between 7:30 am and 4:30 pm Tuesday through Tuesday. If you have questions the morning of surgery, please call the Pre-op Department at [phone]. Notify your SURGEON if you develop any [...] weekly, hold 1 week prior to surgery: Ham[place]unarchanaro . Blood thinners: Please contact your prescribing [...] specifically instructed by your surgeon to hold. STOPtaking all herbal products/teas one week prior to [...] piercings ,hair extensions that contain metal, nail swedish, make-up, and contact lens. You may brush [...] items and leave them in the car untilyou are taken to your room after surgery. [...] following some types of surgeries involving the eyes,ears, sinuses and throat. Always follow your doctor's [...] RIGHTS AND RESPONSIBILITIES As a patient at [facility], you have the right to: Receive medical care and be informed of who is taking care of you Be treated with dignity and respect Have a family member/sales representative facility services of choice and your physician notified of your admission Receive information and actively participate in decisions about your care and treatment Refuse care, treatment and services Decide who may provide your support and speak for you Access mandaeism and spiritual services Participate in ethical issues [...] of hospital charges and payment methods Patient/patient sales representative facility services responsibilities are to: Provide information about health status to facilitate care, treatment and services Follow the treatment, plan, keep appointments and speak up when you do not understand the plan Respect the rights of other patients and healthcare personnel Follow organizational rules and regulations that support quality care and a safe environment Fulfill financial obligations as promptly as possible documented in this encounter[facility]10-16-[facility]24 History of Present illness Narrative* Adiel Aparicio MD - 03/28/2024 11:00 AM EDT Subjective: Antonia is a 39 y.o. female here for [...] these choices. She had a conversation with [facility] and subsequently has decided that she would like definitive surgical management to improve her pain, she and her has discussed thoroughly and to not desire future fertility. Oncology History No overview note Antonia : Denies Early satiety Denies Abdominal distention [...] JVD, supple, symmetrical, trachea midline and thyroid notenlarged, symmetric, no tenderness/mass/nodules Lungs: clear to auscultation [...] pneumonia, myocardial infarction, stroke and even . Thepatient understands the risks and elects to proceed. 4. Total time spent was 63 minutes: Preparing to see the patient (e.g., review of tests) Obtaining and/or reviewing separately obtained history Performing a medically appropriate examination and/or evaluation Counseling and educating the patient/family/caregiver Ordering medications, tests, or procedures Referring and communicating with other health day care home mother (not separately reported) Documenting clinical information in the electronic or other health record Adiel Aparicio MD documented in this encounterFort [facility]09-21-2024 Emergency department Note* Davi Marie DO - 03/03/2024 4:47 PM EDT Emergency Department Report [facility] Service Date:.03/03/24 PCP: No primary [...] vomiting, and diarrhea. Patient denies urinary symptoms. HPI Antonia Noyola is a 39 y.o. female presents to the ED today due to acute on chronic pain. Patient ishaving acute on chronic pain for months. Patient states she has seen ASSISTANT BOILER OPERATOR specialist in [place], Dr. Mendoza, to have her uterus/hysterectomy secondary to endometriosis. Patient says that she then b etween PCPs at this point. Patient does have a OBGYN in [facility], Dr. Berrios. Patient states she is not , she does have her last period 5 days ago. Patient has no chest pain or shortness of breath. Patient is complaining of right lower quadrant pain. Patient has been to the ER several times this month for pain for endometriosis. Patient does not have her gallbladder. Patient doeshave her appendix. Patient has had ovarian cyst [...] not pertinent or were negative for the symptomsand/or complaints related to the presenting medical problem. [...] by Nasal route once for 1 dose. [place] into the nose as directed. Call 911. [...] up to 7 days. Print Disp-20 tablet, R- 0Prescribe no greater than 7 days (adult) or [...] Insecurity: No Food Insecurity (01/27/2024) [facility] Hunger Screening Within the past 12 [...] file Social Connections: Unknown (03/22/2023) Received from [facility] Family and Community Support Help with Day-to-Day Activities: Not on file Lonely or Isolated: Not on file Intimate Partner Violence: Unknown (03/22/2023) Received from [facility] Abuse Screen Unsafe at Home or Work/School: Not on file Feels Threatened by Someone?: Not on file Does Anyone Keep You from Contacting Others or Doint Things Outside the Home?: Not on file Physical Sign of Abuse Present: Not on file Housing Stability: Unknown (03/22/2023) Received from [facility] Housing Stability Current Living Arrangements: Not [...] moist. Nares patent. Mouth without vesicles, no acuteintraoral pathology. Cardiovascular: Regular Rate and Rhythm, no murmurs, gallops, or rubs Respiratory: Patient is in no distress, no accessory muscle use, lungs are clear to auscultation, no wheezing, rales or rhonchi Back: non-tender, no CVA tenderness bilaterally to percussion. NO CTLS midline or paraspinal tenderness to palpation. GI: Soft, patient does have hwbe-ko-jcnzlgnr tenderness to palpation over lower quadrant, no [...] Orders Placed This Encounter AMB REFERRAL TO OB-FAMILY SERVICES MANAGER AMB REFERRAL TO CHRONIC PAIN CLINIC hydroCODone-acetaminophen [...] YELLOW YELLOW APPEARANCE, URINE CLEAR CLEAR Specific [place], Urine 1.010 1.010 - 1.025 PH URINE [...] IV lab work done, she knows with hispain is. Patient says that she is an [...] sat next to the patient, and asked herif she is dependent on opiates, or possibly [...] have definitive treatment from Dr. Aparicio's in [place] for her endometriosis and hysterectomy which patient [...] . . Davi Marie DO 03/03/24 1706 * Geri Burciaga RN - 03/03/2024 4:30 PM EDT Discharge instructions reviewed and given to pt. Verbalizes understanding and denies questions/concerns. Pt instructed to follow-up w/ OB and pain clinic. Pt informs this RN her grandmother is at ED to transport her home. grandmother is here to pick her up from ED. RR wnl. Pt ambulatory out of ED w/ steady gait [facility] Physician Emergency department Note* Davi Marie, - 03/03/2024 4:47 PM EDT Emergency Department Report [facility] Service Date:.03/03/24 PCP: No primary [...] due to acute on chronic pain. Patient ishaving acute on chronic pain for months. Patient states she has seen ASSISTANT BOILER OPERATOR specialist in [place], Dr. Mendoza, to have her uterus/hysterectomy secondary to endometriosis. Patient says that she then b etween PCPs at this point. Patient does have a OBGYN in [facility], Dr. Berrios. Patient states she is not , she does have her last period 5 days ago. Patient has no chest pain or shortness of breath. Patient is complaining of right lower quadrant pain. Patient has been to the ER several times this month for pain for endometriosis. Patient does not have her gallbladder. Patient doeshave her appendix. Patient has had ovarian cyst [...] not pertinent or were negative for the symptomsand/or complaints related to the presenting medical problem. [...] by Nasal route once for 1 dose. [place] into the nose as directed. Call 911. [...] up to 7 days. Print Disp-20 tablet, R- 0Prescribe no greater than 7 days (adult) or [...] Insecurity: No Food Insecurity (01/27/2024) [facility] Hunger Screening Within the past 12 [...] file Social Connections: Unknown (03/22/2023) Received from [facility] Family and Community Support Help with Day-to-Day Activities: Not on file Lonely or Isolated: Not on file Intimate Partner Violence: Unknown (03/22/2023) Received from [facility] Abuse Screen Unsafe at Home or Work/School: Not on file Feels Threatened by Someone?: Not on file Does Anyone Keep You from Contacting Others or Doint Things Outside the Home?: Not on file Physical Sign of Abuse Present: Not on file Housing Stability: Unknown (03/22/2023) Received from [facility] Housing Stability Current Living Arrangements: Not [...] moist. Nares patent. Mouth without vesicles, no acuteintraoral pathology. Cardiovascular: Regular Rate and Rhythm, no murmurs, gallops, or rubs Respiratory: Patient is in no distress, no accessory muscle use, lungs are clear to auscultation, no wheezing, rales or rhonchi Back: non-tender, no CVA tenderness bilaterally to percussion. NO CTLS midline or paraspinal tenderness to palpation. GI: Soft, patient does have wwqf-jt-znxfimvg tenderness to palpation over lower quadrant, no [...] Orders Placed This Encounter AMB REFERRAL TO OB-FAMILY SERVICES MANAGER AMB REFERRAL TO CHRONIC PAIN CLINIC hydroCODone-acetaminophen [...] YELLOW YELLOW APPEARANCE, URINE CLEAR CLEAR Specific [place], Urine 1.010 1.010 - 1.025 PH URINE [...] IV lab work done, she knows with hispain is. Patient says that she is an [...] sat next to the patient, and asked herif she is dependent on opiates, or possibly [...] have definitive treatment from Dr. Aparicio's in [place] for her endometriosis and hysterectomy which patient [...] . . Davi Marie DO 03/03/24 1706 [facility]09-21-2024 Emergency department Note* Geri Burciaga RN - 03/03/2024 4:30 PM EDT Discharge instructions reviewed and given to pt. Verbalizes understanding and denies questions/concerns. Pt instructed to follow-up w/ OB and pain clinic. Pt informs this RN her grandmother is at ED to transport her home. grandmother is here to pick her up from ED. RR wnl. Pt ambulatory out of ED w/ steady gait [facility]09-21-2024 Hospital Discharge instructions* Discharge Instructions* Davi Marie DO - 03/03/2024 4:[address] Wilson, your OBGYN in [place] to see if your appointment may be moved up. Call Dr. Braden in [place] on Tuesday to see if they will [...] to you as well. [facility] Emergency [facility] Note* Ashley Delcid MD - 02/24/2024 11:24 PM EDT Emergency Department Report [facility] Service Date:.02/25/24 PCP: No primary care provider on file. Chief Complaint: Chief Complaint Patient presents with Abdominal Pain Pt presents to ER with complaints of abd pain that began 1 week ago pt sts it is intermittent and that she has a history of stage 4 endometriosis, pt sts she took toradol at 1830 and percocet at 1400with no relief HPI Antonia Noyola is a 39 y.o. female presents to the ED today due to lower quadrant abdominal pain. Started 1 week ago in his intermittent. Tonight pain is 10/10. Took Toradol and Percocet at home with no relief. Patient was seen 1 week ago with same presentation given pain meds and placed on home pain meds. Patient has a history of endometriosis. 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 States she is waitingto be scheduled for a total hysterectomy. Last saw them in November as per records. She explains they just have not scheduled it yet but she is in constant pain. Review of records shows similar presentation at outlying facilities. Is here in [place] helping grandmother pack up to move to [place] with the rest of the family Review [...] by Nasal route once for 1 dose. [place]s into the nose as directed. Call 911. [...] up to 7 days. Print Disp-20 tablet, R- 0Prescribe no greater than 7 days (adult) or [...] Insecurity: No Food Insecurity (01/27/2024) Received from [facility] Hunger Screening Within the past 12 [...] file Social Connections: Unknown (03/22/2023) Received from [facility] Family and Community Support Help with Day-to-Day Activities: Not on file Lonely or Isolated: Not on file Intimate Partner Violence: Unknown (03/22/2023) Received from [facility] Abuse Screen Unsafe at Home or Work/School: Not on file Feels Threatened by Someone?: Not on file Does Anyone Keep You from Contacting Others or Doint Things Outside the Home?: Not on file Physical Sign of Abuse Present: Not on file Housing Stability: Unknown (03/22/2023) Received from [facility] Housing Stability Current Living Arrangements: Not [...] YELLOW YELLOW APPEARANCE, URINE CLEAR CLEAR Specific [place], Urine 1.010 1.010 - 1.025 PH URINE [...] bed rocking holding lower abdomen appearing in distress.At times she was tearful. Abdomen is soft with tenderness lower quadrants. Guarding. Urine CBC and CMP all within normal limits. Vital signs stable and patient afebrile. Reviewed CT abdomen pill from 1 week ago with no acute findings. I did review records from October and November from OBGYNwith history of endometriosis. Three laparoscopic surgeries all [...] scan ordered.. . Patient then asked me toreturn to the room stating she just wanted to go home and did not want scan because she knows the results are always the same. I explained to patient we need to evaluate as conditions change. She continued to refused but was requesting more pain medication. I spoke with patient's for a bit of time s tating that I felt that this was intractable pain and further evaluation with admission seemed appropriate. Patient refused. I offered to contact her physician in [place] and see if I could transfer her there but patient again refused. Grandmother came to drive patient home and she signed out AMA Clinical Impression: 1. Pelvic pain No follow-ups on file. Discharge Medication List as of 02/24/2024 11:24 PM Discharge Medication List as of 02/24/2024 11:24 PM An After Visit Summary was printed and given to the patient with above information. . Ashley Delcid MD 02/25/24 0355 * Geri Burciaga RN - 02/24/2024 11:21 PM EDT AMA form signed. Pt aware of risks and refuses hospital admission. Pt states grandmother is at facility to transport her home. Denies further needs at this time. Pt is a&o respirations are even and unlabored. Pt ambulatory out of ED w/ steady gait * Geri Burciaga RN - 02/24/2024 10:52 PM EDT This RN and Dr. Delcid to bedside [...] like her to call her Doctor in [place] for possible transfer. Pt refuses. Pt states she does not want to be admitted anywhere and states will sign AMA form and call her pcp in the morning. * eGri Burciaga RN - 02/24/2024 9:46 PM EDT Pt states pain has not improved after dilaudid administration. Dr. Delcid made aware * Geri Burciaga RN - 02/24/2024 9:20 PM EDT Pt states her grandmother will transport her home if discharged [facility] Emergency department Note* Ashley Delcid MD - 02/24/2024 11:24 PM EDT Emergency Department Report [facility] Service Date:.02/25/24 PCP: No primary care provider on file. Chief Complaint: Chief Complaint Patient presents with Abdominal Pain Pt presents to ER with complaints of abd pain that began 1 week ago pt sts it is intermittent and that she has a history of stage 4 endometriosis, pt sts she took toradol at 1830 and percocet at 1400with no relief HPI Antonia Noyola is a 39 y.o. female presents to the ED today due to lower quadrant abdominal pain. Started 1 week ago in his intermittent. Tonight pain is 10/10. Took Toradol and Percocet at home with no relief. Patient was seen 1 week ago with same presentation given pain meds and placed on home pain meds. Patient has a history of endometriosis. 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 States she is waitingto be scheduled for a total hysterectomy. Last saw them in November as per records. She explains they just have not scheduled it yet but she is in constant pain. Review of records shows similar presentation at outlying facilities. Is here in [place] helping grandmother pack up to move to [place] with the rest of the family Review [...] Spasms Atenolol Other Reaction(s): Dr. Cantu/ [facility] Octacosacr Phenothiazines Anxiety and Itching Other Reaction(s): Jittery [...] by Nasal route once for 1 dose. [place]s into the nose as directed. Call 911. [...] up to 7 days. Print Disp-20 tablet, R- 0Prescribe no greater than 7 days (adult) or [...] Insecurity: No Food Insecurity (01/27/2024) Received from [facility] Hunger Screening Within the past 12 [...] file Social Connections: Unknown (03/22/2023) Received from [facility] Family and Community Support Help with Day-to-Day Activities: Not on file Lonely or Isolated: Not on file Intimate Partner Violence: Unknown (03/22/2023) Received from [facility] Abuse Screen Unsafe at Home or Work/School: Not on file Feels Threatened by Someone?: Not on file Does Anyone Keep You from Contacting Others or Doint Things Outside the Home?: Not on file Physical Sign of Abuse Present: Not on file Housing Stability: Unknown (03/22/2023) Received from [facility] Housing Stability Current Living Arrangements: Not on file Potentially Unsafe Housing Conditions: Not on file Physical Exam: Physical Exam Vital Signs During ED Visit Patient Vitals for the past 24 hrs: BP Temp Temp src Pulse Resp SpO2 Height 02/24/249 129/72 98 F (36.7 C) Oral 94 [...] YELLOW YELLOW APPEARANCE, URINE CLEAR CLEAR Specific [place], Urine 1.010 1.010 - 1.025 PH URINE [...] bed rocking holding lower abdomen appearing in distress.At times she was tearful. Abdomen is soft with tenderness lower quadrants. Guarding. Urine CBC and CMP all within normal limits. Vital signs stable and patient afebrile. Reviewed CT abdomen pill from 1 week ago with no acute findings. I did review records from October and November from OBGYNwith history of endometriosis. Three laparoscopic surgeries all [...] scan ordered.. . Patient then asked me toreturn to the room stating she just wanted to go home and did not want scan because she knows the results are always the same. I explained to patient we need to evaluate as conditions change. She continued to refused but was requesting more pain medication. I spoke with patient's for a bit of time s tating that I felt that this was intractable pain and further evaluation with admission seemed appropriate. Patient refused. I offered to contact her physician in [place] and see if I could transfer her there but patient again refused. Grandmother came to drive patient home and she signed out AMA Clinical Impression: 1. Pelvic pain No follow-ups on file. Discharge Medication List as of 02/24/2024 11:24 PM Discharge Medication List as of 02/24/2024 11:24 PM An After Visit Summary was printed and given to the patient with above information. . Ashley Delcid MD 02/25/24 0355 [facility]09-13-2024 Emergency department Note* Geri Burciaga RN - 02/24/2024 11:21 PM EDT AMA form signed. Pt aware of risks and refuses hospital admission. Pt states grandmother is at facility to transport her home. Denies further needs at this time. Pt is a&o respirations are even and unlabored. Pt ambulatory out of ED w/ steady gait [facility]09-13-2024 Emergency department Note* Geri Burciaga RN - 02/24/2024 10:52 PM EDT This RN and Dr. Delcid to bedside [...] like her to call her Doctor in [place] for possible transfer. Pt refuses. Pt states she does not want to be admitted anywhere and states will sign AMA form and call her pcp in the morning. [facility]09-13-2024 Emergency department Note* Geri Burciaga RN - 02/24/2024 9:46 PM EDT Pt states pain has not improved after dilaudid administration. Dr. Delcid made aware [facility]09-13-2024 Emergency department Note* Geri Burciaga RN - 02/24/2024 9:20 PM EDT Pt states her grandmother will transport her home if discharged [facility]09-05-2024 Emergency department Note* Una Levy RN - 02/16/2024 5:12 PM EDT Discharge instructions provided. Patient verbalized understanding. Denies any questions or concernsprior to discharge. Ambulatory out of ED with Rx X2. [facility]09-05-2024 Emergency department Note* Una Levy RN - 02/16/2024 5:12 PM EDT Discharge instructions provided. Patient verbalized understanding. Denies any questions or concernsprior to discharge. Ambulatory out of ED with Rx X2. * Una Levy RN - 02/16/2024 3:40 PM EDT Patient states that pain is getting worse again. Dr Moore notified. No new orders received at this time. States he is waiting for CT results. Patient updated on plan. * Tangela Guajardo RN - 02/16/2024 3:10 PM EDT Pt taken to CT scan * Jennifer Moore MD - 02/16/2024 1:48 PM EDT Emergency Department Report [facility] Service Date:.02/16/24 PCP: No primary [...] but mostly these on the left, today itis on the right side. Nausea and vomiting [...] as above in the HPI, right lower quadrantabdominal pain Genitourinary symptoms: Negative except as documented [...] by Nasal route once for 1 dose. [place]s into the nose as directed. Call 911. [...] BY MOUTH EVERY 6 HOURS NEEDED FOR PAINFOR UP TO 3 DAYS Family History: No [...] Insecurity: No Food Insecurity (01/27/2024) Received from [facility] Hunger Screening Within the past 12 [...] file Social Connections: Unknown (03/22/2023) Received from [facility] Family and Community Support Help with Day-to-Day Activities: Not on file Lonely or Isolated: Not on file Intimate Partner Violence: Unknown (03/22/2023) Received from [facility] Abuse Screen Unsafe at Home or Work/School: Not on file Feels Threatened by Someone?: Not on file Does Anyone Keep You from Contacting Others or Doint Things Outside the Home?: Not on file Physical Sign of Abuse Present: Not on file Housing Stability: Unknown (03/22/2023) Received from [facility] Housing Stability Current Living Arrangements: Not on file Potentially Unsafe Housing Conditions: Not on file Physical Exam: Physical Exam CONST: -Well-developed well-nourished ; -In no acute distress. -Vitals reviewed. EYES: -EOM intact, KOLBY: -Sclera normal and conjunctiva: clear bilaterally. ENT: - Normal pharynx pink and moist. NECK: -Supple (kden-eg-kmaei). CARD: -Rate and rhythm: Regular -Murmurs: No [...] Procedures: Procedures Moderate Sedation Procedure: No ED Summary/[facility] CT scan fails to demonstrate acute process. [...] by Nasal route once for 1 dose. [place] Marys into the nose as directed. Call 911. [...] BY MOUTH EVERY 6 HOURS NEEDED FOR PAINFOR UP TO 3 DAYS An After Visit Summary was printed and given to the patient with above information. . . Jennifer Moore MD 02/16/24 [id number] documented in this [facility]09-05-2024 Hospital Discharge instructions* Discharge Instructions* Jennifer Moore MD - 02/16/2024 4:52 PM EDT Tylenol for moderate pain. Full liquid diet for 2 days. * Attachments The following attachments cannot be sent through Care Everywhere. * Abdominal Pain ([place]) [facility] Emergency department Note* Una Levy RN - 02/16/2024 3:40 PM EDT Patient states that pain is getting worse again. Dr Moore notified. No new orders received at this time. States he is waiting for CT results. Patient updated on plan. [facility]09-05-2024 Emergency department Note* Tangela Guajardo RN - 02/16/2024 3:10 PM EDT Pt taken to CT scan [facility]09-05-2024 Physician Emergency department Note* Jennifer Moore MD - 02/16/2024 1:48 PM EDT Emergency Department Report [facility] Service Date:.02/16/24 PCP: No primary [...] 3 hours ago with no relief. HPI Antonia Noyola is a 39 y.o. female presents to the ED today due to right lower quadrant abdominal pain. She does have a history of endometriosis and ovarian cyst but mostly these on the left, today itis on the right side. Nausea and vomiting [...] as above in the HPI, right lower quadrantabdominal pain Genitourinary symptoms: Negative except as documented [...] by Nasal route once for 1 dose. [place] Marys into the nose as directed. Call 911. [...] BY MOUTH EVERY 6 HOURS NEEDED FOR PAINFOR UP TO 3 DAYS Family History: No [...] Insecurity: No Food Insecurity (01/27/2024) Received from [facility] Hunger Screening Within the past 12 [...] file Social Connections: Unknown (03/22/2023) Received from [facility] Family and Community Support Help with Day-to-Day Activities: Not on file Lonely or Isolated: Not on file Intimate Partner Violence: Unknown (03/22/2023) Received from [facility] Abuse Screen Unsafe at Home or Work/School: Not on file Feels Threatened by Someone?: Not on file Does Anyone Keep You from Contacting Others or Doint Things Outside the Home?: Not on file Physical Sign of Abuse Present: Not on file Housing Stability: Unknown (03/22/2023) Received from [facility] Housing Stability Current Living Arrangements: Not on file Potentially Unsafe Housing Conditions: Not on file Physical Exam: Physical Exam CONST: -Well-developed well-nourished ; -In no acute distress. -Vitals reviewed. EYES: -EOM intact, KOLBY: -Sclera normal and conjunctiva: clear bilaterally. ENT: - Normal pharynx pink and moist. NECK: -Supple (phlh-js-dgqjy). CARD: -Rate and rhythm: Regular -Murmurs: No [...] by Nasal route once for 1 dose. [place]s into the nose as directed. Call 911. [...] BY MOUTH EVERY 6 HOURS NEEDED FOR PAINFOR UP TO 3 DAYS An After Visit Summary was printed and given to the patient with above information. . . Jennifer Moore MD 02/16/24 1004 [facility]09-02-2024 Evaluation + Plan noteExtracted from: Title:ED Note Author:Pta Heath DOvirginia LewisEbenezer Date :02/13/24 Pain, dental (K08.89: Other specified disorders of teeth and supporting structures) Orders: amoxicillin-clavulanate, 1 tab(s), Oral, q12hr for 7 day(s), 14 tab(s), Refill(s) 0, [facility]/pharmacy #[id number], 165.1, cm, 02/13/24 0:28:00 EDT, Height/Length Dosing, 87.3, kg, 02/13/24 0:28:00 EDT, Weight Dosing benzocaine topical, 1 luis, Gel, Topical, QID for 30 day(s), Stop date 03/14/24 0:42:00 EDT, STAT, Start date 02/13/24 0:43:00 EDT lidocaine topical, 200 mg, 10 mL, Soln-Oral, Oral, Once, Stop date 02/13/24 0:43:00 EDT, STAT, Start date 02/13/24 0:43:00 EDT [facility] 09-02-2024 Hospital Discharge instructions Patient Education [...] or after getting dental care. Medicines Take puxc-fyo-hwoipeu and prescription medicines only as told by [...] pain may be mild or severe. Take bxsd-fdk-vemurmh and prescription medicines only as told by [...] provider. Document Revised: 03/04/2021 Document Reviewed: 03/04/2021 [employer] Patient Education 2023 Optimal+. Follow Up Care 02/13/2024 00:22:40 With:Dental: [facility] [phone] Address:Unknown When:02/16/2024 With:Dental: [facility] [phone] Address:Unknown When:02/16/2024 With:Dental: [facility] [phone] Address:Unknown When:02/16/2024 [facility] 09-02-2024 NoteED Patient Education Note Dentistry [...] after getting dental care. Medicines ? Take mhoj-azb-qgxsmby and prescription medicines only as told by [...] may be mild or severe. ? Take lcbt-cbx-azxrbip and prescription medicines only as told by [...] provider. Document Revised: 03/04/2021 Document Reviewed: 03/04/2021 [employer] Patient Education ? 2023 Optimal+.[facility] 01-22-2024 Hospital Discharge instructions* Discharge Instructions* Eren [...] through Care Everywhere. * Ovarian Cyst: Functional ([place]) [facility]* Author Jennifer Duran [facility] Authored January 19, 2024 11: 44am The above note written by __ _Polly Collado____ acting as human recorder, note dictated by Dr. Mcfadden .I performed the above HPI, ROS, and Examination. I formulated and dictated the treatment plan and was present for entire encounter. Jennifer Duran D.O. [facility] Work Phone: 1(655) 789-196605-28-2024 Hospital Discharge instructions* Discharge Instructions* Eren Camejo DO - 11/08/2023 12:01 PM EDT Use clindamycin as prescribed. Continue the pain medicine that you have at home as needed for pain.Follow-up with dentist as scheduled * Attachments The following attachments cannot be sent through Care Everywhere. * Tooth and Gum Pain ([place]) [facility] note* Author Jennifer Duran [facility] Authored October 18, 2023 3:45pm The above note written by __ _Polly Collado____ acting as human recorder, note dictated by Dr. Mcfadden .I performed the above HPI, ROS, and Examination. I formulated and dictated the treatment plan and was present for entire encounter. Jennifer Duran D.O. [facility] Work Phone: 1(666) 787-548304-19-2024 Evaluation + Plan noteExtracted from: Title:ED Note [...] Diagnostic Tests Pending * Urine Culture 09/30/23 [facility]04-19-2024 Hospital Discharge instructions Patient Education 09/30/2023 [...] (oophorectomy). Follow these instructions at home: Take ecly-tij-ikniklz and prescription medicines only as told by [...] provider. Document Revised: 11/06/2020 Document Reviewed: 11/06/2020 [employer] Patient Education 2022 Optimal+. Follow Up Care 09/29/2023 23:40:10 With:Rose Royal Address: [facility] [place], [address] [address]- Business (1) When:10/03/2023 [facility]04-15-2024 Hospital Discharge instructions Follow Up Care 09/26/2023 13:55:08 With:[facility] Address: [place] [address]- Business (1) When:09/29/2023 17:49:12 With:Tarun BRADEN Address: [address] , [place] [address]- Business (1) When:09/29/2023 17:49:03 With:XXXX NONE Address: [place] When:Within 3 Day(s) [facility]04-15-2024 Evaluation + Plan noteExtracted from: Title:ED [...] q12hr, # 20 tab(s), Refills(s) 0, Pharmacy: [facility]/pharmacy #[id number], 165, cm, 09/26/23 14:18:00 EDT, Height/Length Dosing, 81.2, kg, 09/26/23 14:18:00 EDT, Weight Dosing hyoscyamine, 0.125 mg = 1 tab(s), Oral, QID, X 5 day(s), # 20 tab(s), Refills(s) 0, Pharmacy: [facility]/pharmacy #[id number], 165, cm, 09/26/23 14:18:00 EDT, Height/Length Dosing, 81.2, kg, 09/26/23 14:18:00 EDT, Weight Dosing ketorolac, 30 mg = 1 mL, Injection, IV, Once, Stop date 09/26/23 15:40:00 EDT, STAT, Start date 09/26/23 15:40:00 EDT, 09/26/23 15:40:00 EDT polyethylene glycol 3350, 17 gm, Oral, Daily, X 7 day(s), # 119 gm, Refills(s) 0, Pharmacy: [facility]/pharmacy #[id number], 165, cm, 09/26/23 14:18:00 EDT, Height/Length Dosing, 81.2, kg, 09/26/23 14:18:00 EDT, Weight Dosing Beta hCG Qual CBC w/ Auto Diff Comprehensive Metabolic Panel CT Abdomen/Pelvis w/ Contrast Drug Screen Urine eGFR Extra Blue Tube Extra SST Tube Lipase Level UA with Cult Rflx US Pelvis Non-OB Complete US Transvaginal Non-OB [facility]02-18-2024 Hospital Discharge instructions Patient Education 07/31/2023 [...] Follow these instructions at home: Medicines Take kjnv-hxy-feipgyv and prescription medicines only as told by [...] Watch your condition for any changes. Take tiwa-ewp-ukfaeqd and prescription medicines only as told by [...] provider. Document Revised: 07/18/2020 Document Reviewed: 10/08/2019 [employer] Patient Education 2022 Optimal+. Follow Up Care 07/31/2023 15:34:13 With:Follow-up with your ASSISTANT BOILER OPERATOR at [facility] Address:Unknown When:08/03/2023 17:52:19 Comments:Call the [...] weakness, or any new or worsening symptoms. [facility]02-15-2024 Evaluation note* Author Jennifer Duran [facility] Authored July 28, 2023 1:18pm The above note written by __ _Polly Collado____ acting as human recorder, note dictated by Dr. Mcfadden .I performed the above HPI, ROS, and Examination. I formulated and dictated the treatment plan and was present for entire encounter. Jennifer Duran D.O. [facility] Work Phone: 1(193) 596-219402-06-2024 Evaluation note* Encounter Date Diagnosis Assessment Notes Treatment Notes Treatment Clinical Notes Jul, Anxiety (ICD-10 - F41.9) [facility] Other 02-06-2024 Evaluation note* Encounter Date Diagnosis [...] an appointment with her specialist through the [facility] and is scheduled at the end of this month (July) and is hoping to have a total hysterectomy. [facility] Other 12-26-2023 Evaluation note* Encounter Date Diagnosis Assessment Notes Treatment Notes Treatment Clinical Notes May, Cough (ICD-10 - R05.9) [facility] Other 12-04-2023 Evaluation note* Encounter Date Diagnosis Assessment Notes Treatment Notes Treatment Clinical Notes May, Anxiety (ICD-10 - F41.9) [facility] Other 11-12-2023 Hospital Discharge instructions Patient Education [...] Follow these instructions at home: Medicines Take xayi-yfm-ajqnhxu and prescription medicines only as told by [...] Watch your condition for any changes. Take bjow-wdy-vsgwgbh and prescription medicines only as told by [...] provider. Document Revised: 07/18/2020 Document Reviewed: 10/08/2019 [employer] Patient Education 2022 Optimal+. Follow Up Care 04/24/2023 13:13:55 With:YOUR OBGYN at [facility] Address:Unknown When:04/27/2023 15:50:22 Comments:Seek immediate medical [...] develop any new or worsening symptoms. 3. [facility]11-12-2023 Evaluation + Plan noteExtracted from: Title:ED Note Author:Jignesh Dumont DO Date:06/24/22 Abdominal pain, acute, left lower quadrant (R10.32: Left lower quadrant pain) Ordered: oxycodone, 5 mg = 1 cap(s), Oral, q6hr, PRN Pain 8-10, X 3 day(s), # 12 cap(s), Refills(s) 0, Pharmacy: [facility]/pharmacy #[id number], 165.1, cm, 04/24/23 13:32:00 EST, [...] Saline Lock Insert UA With Cult Reflex [facility]11-06-2023 Evaluation note* Encounter Date Diagnosis Assessment [...] an appointment with her specialist at the [facility] in June (2023) which was the soonest they could get her in. She is hoping that they will at least remove the ovary but she is willing to have a total hysterectomy if they will do it. 1:13 PM - 1:20 PM [facility] Other 10-20-2023 Evaluation note* Encounter Date Diagnosis Assessment Notes Treatment Notes Treatment Clinical Notes Mar, Anxiety (ICD-10 - F41.9) [facility] Other 10-17-2023 Progress note Author Christi Aquino [facility] March 29, 2023 4:11pm Note Date/Time March 29, 2023 1 1:35am [facility] [address] [place], [place] [id number] Progress Note Signed with Addenda Patient: Antonia Noyola MR#: [id number] : 1985 Acct:[id number] Age/Sex: 38 / F Adm Date: 3 Loc: Room: [address] [place] [address] Type: ADM IN Attending Dr: Christi Aquino MD Copies to: ~ ADDENDUM1 Upon re-evaluation in the afternoon, patient feels better and would like to go home. Prescribed pain medications as needed as directed. Advised to continue to follow up with [facility] staff core piler. 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 Discussed with patient and her mother at bedside. All questions answered. She is in agreement and comfortable with discharge plan with these prescriptions. Addendum Documented By: Christi Aquino MD 03/29/23 1611 Addendum Signed By: <Electronically signed by Christi [...] Still with abdominal pain mostly left sided. core piler eval requested for further evaluation. Patient has complex core piler hx and been followed at [facility]. Afebrile here, no leukocytosis or obvious evidence of infectious process. Placed on Pain meds regimen IV and PO. Ongoing monitoringfor now. Documented By: Christi Aquino MD 03/29/23 11 32 Signed By: <Electronically signed by Christi Aquino MD> 03/29/23 6134 [facility] Work Phone: [phone]) 754-515410-17-2023 History and physical note Author Megan Muniz [facility] March 29, 2023 7:29am Note Date/Time March 29, 2023 7 :29am [facility] [address] [place] [address] Hospitalist H&P Signed Patient: Antonia Noyola MR#: [id number] : 1985 Acct:[id number] Age/Sex: 38 / F Adm Date: 3 Loc: Room: [address] [place] [address] Type: ADM IN Attending Dr: Christi Aquino [...] findings. The patient case was discussed with ASSISTANT BOILER OPERATOR, who was not convinced that left ovarian [...] records in the computer system reviewed [facility] Medical History Anemia Endometriosis Surgical History History [...] % (Auto) 42.8 % (.) 03/29/23 01:40 [place] % (Auto) 7.3 % (.) 03/29/23 01:40 Eos % (Auto) 1.8 % (.) 03/29/23 01:40 Baso % (Auto) 1.3 % (.) 03/29/23 01:40 Nucleat RBC Rel Count 0.1 /100 WBC (0-0.5) 03/29/23 01:40 Neut # (Auto) 3.5 x10E3/uL (1.8-7.7) 03/29/23 01:40 Lymph # (Auto) 3.2 x10E3/uL (1.00-4.8) 03/29/23 01:40 [place] # (Auto) 0.6 x10E3/uL (0.0-0.8) 03/29/23 01:40 [...] pH 7.5 (5.0-9.0) 03/29/23 02:53 Ur Specific [place] 1.003 (1.001-1.030) 03/29/23 02:53 Urine Protein Negative [...] she does have tachycardia We will consult ASSISTANT BOILER OPERATOR Check lactic acid 2. Microcytic iron deficiency [...] signed by Megan Muniz MD> 03/29/23 0729 [facility] Work Phone: 1(886) 938-637108-02-2023 Evaluation note* Encounter Date Diagnosis Assessment Notes [...] relief. She would need to see an ear specialist for this. She is agreeable to [...] an appointment to see Dr. Castillo again. [facility] Other 06-29-2023 Evaluation note* Encounter Date Diagnosis Assessment Notes Treatment Notes Treatment Clinical Notes Nov, Acute sinusitis (ICD-10 - J01.90) Nov, Cough (ICD-10 - R05.9) [facility] Other 05-01-2023 Evaluation note* Encounter Date Diagnosis [...] no discrepancies noted. Rx was called into [facility], spoke with Chad TOWNSEND, the Xanax 0.25 MG tablets are out of stock currently so her dose was increased to 0.5 MG and she was instructed to take 1/2 tablet q8-12 hours as needed. Only 12 tablets were called in. Pt voiced understanding when notified of this change. October, Other 3:17 PM - 3:23 PM [facility] Other 04-12-2023 Evaluation note* Encounter Date Diagnosis [...] Sep, Other 12:46 PM - 12:51 PM [facility] Other 01-30-2023 Evaluation note* Encounter Date Diagnosis Assessment Notes Treatment Notes Treatment Clinical Notes Jun, Anxiety (ICD-10 - F41.9) [facility] Other 01-30-2023 Evaluation note* Encounter Date Diagnosis [...] Side effects/risks/benefi ts of medication were reviewed. [facility] Other 12-21-2022 Evaluation note* Encounter Date Diagnosis [...] May, Other 3:27 PM - 3:32 PM [facility] Other 11-18-2022 Miscellaneous Notes* Telephone Encounter - Tabby Steele Ma - 04/30/2022 2:25 PM EST CMP if needed. Tabby Steele Ma documented in this encounter[facility]* Encounter Date Diagnosis Assessment Notes Treatment Notes Treatment Clinical Notes Mar, Anxiety (ICD-10 - F41.9) [facility] Other 10-31-2022 Evaluation note* Encounter Date Diagnosis [...] done and then return to see her ASSISTANT BOILER OPERATOR at the [facility] because she feel she has another ovarian cyst. [facility] Other 10-28-2022 Miscellaneous Notes* Allied Health - [...] up then. SIGNATURE: Donald Villegas PATIENT NAME: Antonia Noyola DATE: April 09, 2022 TIME: 2:21 PM PAGER/CONTACT #: documented in this encounterPark[facility]10-[facility] Miscellaneous Notes* Telephone Encounter - MARY Narvaez - 03/15/2022 12:04 PM EDT Patient appears on the First Time Treatment List for a non-oncology treatment. No psychosocial assessment is indicated. JANNA Narvaez documented in this encounterParkview Health [facility]09-28-2022 NoteHNO ID: [id number] Author: Madyson Ni APRN.PIOTR Service: ? Author Type: Nurse Practitioner Type: Progress Notes Filed: 03/10/2022 2:25 PM Note Text: NAME: Antonia Noyola [facility] NO.: [id number] DATE OF SERVICE: March 10, 2022 (Elements copied from Dr. Gino Reid note dated October 27, 2020, have been reviewed and updated where appropriate, and all reflect current assessment and medical decision making during today's encounter, March 10, 2022) Referring Provider: Dr. Jennifer Duran Additional Clinicians involved in Antonia Noyola's care: CC: Iron deficiency anemia ASSESSMENT: [...] 1. HPI: Updated Visit, March 10, 2022: Antonia Noyola returns for follow-up. She recently saw her PCP, Dr. Duran, and was found to have abnormal labs including a low hemoglobin and low iron studies. She continues to have heavy monthly menses lasting on average 6 days. She denies any other signs of blood loss. Her biggest complaint is fatigue. 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 Initial Visit, October 27, 2020: Antonia Noyola presents today Hematology and Oncology evaluation. [...] with subsequent iron deficiency. Recent laboratories from [facility] October 04, 2020 show hemoglobin of 11.6 [...] and removal ovarian cyst (more content not included)...[facility]09-28-2022 History of Present illness Narrative* Madyson Ni APRN.LINE OUT WORKER - 03/10/2022 2:00 PM EDT Images from the original note were not included. NAME: Wayne Noyolacie [facility] NO.: [id number] DATE OF SERVICE: March 10, 2022 (Elements copied from Dr. Gino Reid note dated October 27, 2020, have been reviewed and updated where appropriate, and all reflect current assessment and medical decision making during today's encounter, March 10, 2022) Referring Provider: Dr. Jennifer Duran Additional Clinicians involved in Antonia Noyola's care: CC: Iron deficiency anemia ASSESSMENT: [...] 1. HPI: Updated Visit, March 10, 2022: Antonia Noyola returns for follow-up. She recently saw her PCP, Dr. Duran, and was found to have abnormal labs including a low hemoglobin and low iron studies. She continues to have heavy monthly menses lasting on average 6 days. She denies any other signs of blood loss. Her biggest complaint is fatigue. 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 Initial Visit, October 27, 2020: Antonia Noyola presents today Hematology and Oncology evaluation. [...] with subsequent iron deficiency. Recent laboratories from [facility] October 04, 2020 show hemoglobin of11.6 but [...] Father Heart Father bypass surgery, stents, CT Madyson Ni APRN.[place], [place] CC: Dr. Jennifer Duran [address] [place] [id number] I spent a total of 30 minutes on the date of the service which included preparing to see the patient, mmbg-qp-vvvx patient care, completing clinical documentation, obtaining and/or reviewing separately obtained history, performing a medically appropriate examination, counseling and educating the pat ient/family/caregiver, ordering medications, tests, or procedures, independently interpreting results (not separately reported), and communicating results to the patient/family/caregiver. documented in this encounterParkview Health [facility]09-08-2022 Miscellaneous Notes* Telephone Encounter - Meaghan Ordonez - 02/18/2022 3:14 PM EDT Patient has an appt on 02/23. Would you like labs? documented in this encounterParkview Health [facility]09-06-2022 Evaluation note* Encounter Date Diagnosis Assessment Notes Treatment Notes Treatment Clinical Notes Feb, Iron deficiency anemia (ICD-10 - D50.9) Feb, Elevated liver enzymes (ICD-10 - R74.8) [facility] Other 07-28-2022 Evaluation note* Encounter Date Diagnosis Assessment Notes Treatment Notes Treatment Clinical Notes Dec, Anxiety (ICD-10 - F41.9) [facility] Other 06-24-2022 Hospital Discharge instructions Patient Education [...] develop this condition: Playing sports that include xlnh-hb-uqlh contact with others. Having a skin condition [...] Follow these instructions at home: Medicines Take eokc-njn-xogdthj and prescription medicines only as told by [...] 06/20/2015 Document Revised: 07/10/2019 Document Reviewed: 06/21/2017 [employer] Patient Education 2020 [employer]. 12/04/2021 13:59:11 Sinusitis, Adult Sinusitis, Adult Sinusitis [...] at home: Medicines Take, use, or apply tgih-mib-mlfrywj and prescription medicines only as told by [...] and water are not available, use hand energy director. Do not smoke. Avoid being around people [...] 05/30/2006 Document Revised: 10/30/2018 Document Reviewed: 10/30/2018 [employer] Patient Education 2020 Optimal+. 12/04/2021 13:59:10 BMI for Adults BMI for [...] can be done either in [place] or metric measurements. Note that charts are available to help you find your BMI quickly and easily without having to do these calculations yourself. To calculate your BMI in [place] measurements, your health care provider will: [...] BMI can be measured using [place] measurements or metric measurements. To interpret your [...] 02/08/2005 Document Revised: 05/12/2018 Document Reviewed: 04/12/2018 [employer] Patient Education [employer] [facility] 05-06-2022 Evaluation note* Encounter [...] October, Other 8:28 AM - 8:35 AM [facility] Other 03-01-2022 Evaluation note* Encounter Date Diagnosis Assessment Notes Treatment Notes Treatment Clinical Notes Aug, Cough (ICD-10 - R05) [facility] Other 02-21-2022 Evaluation note* Encounter Date Diagnosis [...] Jul, Other 5:43 PM - 5:48 PM [facility] Other 12-06-2021 Evaluation note* Encounter Date Diagnosis [...] voices that her employer will handle her [employer] paperwork. If she needs a note [...] May, Other 4:25 PM - 4:38 PM [facility] Other 11-09-2021 Evaluation note* Encounter Date Diagnosis [...] R63.5) Her TSH is normal at 1.04. [facility] [employer] Other 10-07-2019 History general Narrative - Reported* Type Description Date Medical History endometriosis 2012 Medical History Echocardiogram [facility] Normal, ejection fraction 60-65% Medical History MRI Brain 03-21-19 [facility], Normal Medical History anxiety Medical History pneumonia 06/2019 Surgical History Cholecystectomy Surgical History gal bladder removed 2008 Surgical History ablation - endometri osis removed off ovaries Dr Lentz 2012 Surgical History ovarian torsion 2014 Surgical History MRI pelvis 2018 Surgical History ovarian cyst removed 06/2018 Hospitalization History see above [facility] [employer] Other Consult note Author Jameel Hatfield [facility] April 28, 2022 8:22am Note Date/Time April 28, 2022 8:22am [facility] [address] [place] [address] ASSISTANT BOILER OPERATOR Consult Note Signed Patient: Antonia Noyola MR#: [id number] : 1985 Acct:[id number] Age/Sex: 37 / F Adm Date: 2 Loc: Room: [address] [place] [address] Type: ADM INOo Attending Dr: Kiko Saenz [...] Last Admin: 04/28/22 04:43 Dose: 10 ml FAMILY SERVICES MANAGER - Exam Physical Exam Vital signs: Temp 97.7 F 04/28/22 04:18 Pulse 95 H 04/28/22 04:18 Resp 16 04/28/22 04:18 BP 136/95 04/28/22 04:18 Pulse Ox 100 04/28/22 04:18 O2 Del Method Room Air 04/28/22 04:18 Constitutional Constitutional: no acute distress Routine Respiratory Exam Respiratory: Absent respiratory distress Routine Abdominal Exam Abdominal: Present soft, normoactive bowel sounds and tenderness; Absent reboundor guarding FAMILY SERVICES MANAGER - Results Laboratory Results - Last 48 hrs. 04/28/22 02:00: Urine Color Yellow, Urine Appearance Cloudy A, Urine pH 6.5, Ur Specific [place] 1.005, Urine Protein Negative, Urine Glucose (UA) [...] Creatinine Clear 132.36, Sodium 137, Potassium 3.7, Pwepszue180, Carbon Dioxide 21.1 L, Anion Gap 14.6, [...] % (Auto) 64.6, Lymph % (Auto) 28.9, [place] % (Auto) 4.5, Eos % (Auto) 1.0, Baso % (Auto) 1.0, Neut # (Auto) 5.1, Lymph # (Auto) 2.3, [place] # (Auto) 0.4, Eos # (Auto) 0.1, Baso # (Auto) 0.1, Nucleated RBC % (auto) 0.0, Platelet Estimate Normal, Plt Morphology Comment Normal, RBC Morphology N/A, Polychromasia Slight, Hypochromasia Slight, Poikilocytosis Moderate, Anisocytosis Marked, Tear Drop Cells Slight, Ovalocytes Moderate FAMILY SERVICES MANAGER - A/P (1) Intractable abdominal pain: Code(s): [...] And I suggested she follow-up with her editorial cartoonist at the [facility]. Code(s): N83.202 - Unspecified ovarian cyst, left side Status: Acute Documented By: JAMEEL HATFIELD MD 04/28/22816 Signed By: <Electronically signed by MD JAMEEL HATFIELD> 04/28/22 08 [facility] Work Phone: Evaluation + Plan note No data available for this section [facility] Evaluation noteNo assessment information available [facility] Work Phone: Evaluation noteNo InformationNort [employer] Other Evaluation note* Diagnosis Iron deficiency anemia due to chronic blood loss- Primary Iron deficiency anemia secondary to blood loss (chronic) documented in this encounter [facility]* Diagnosis 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 documented [facility] this [facility]* Diagnosis 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 Cyst of left ovary Other and unspecified ovarian cyst documented [facility] this encounter [facility]* Diagnosis 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 Cyst of left ovary Other and unspecified ovarian cyst documented [facility]* Diagnosis Iron deficiency anemia due to chronic blood loss- Primary Iron deficiency anemia secondary to blood loss (chronic) documented in this encounter [facility]* Diagnosis Onset Date Resolution Status Abdominal pain acute Ovarian cyst acute [facility] Work Phone: Evaluation note* Diagnosis Onset Date Resolution Status Abdominal pain acute Endometriosis acute Ovarian cyst acute [facility] Work Phone: Evaluation note* Author Jennifer Duran [facility] Authored July 28, 2023 12:18pm The above note written by __ _Polly Collado____ acting as human recorder, note dictated by Dr. Mcfadden .I performed the above HPI, ROS, and Examination. I formulated and dictated the treatment plan and was present for entire encounter. Jennifer Duran D.O. [facility] Work Phone: Evaluation note* Diagnosis Toothache- Primary Unspecified disorder of the teeth and supporting structures documented in this encounter [facility] note* Diagnosis Onset Date Resolution Status Anxiety acute Tachycardia acute [facility] Work Phone: Evaluation note* Diagnosis Cyst of left ovary- Primary Other and unspecified ovarian cyst documented in this encounter [facility] note* Diagnosis Lower abdominal pain Abdominal pain, other specified site [facility]* Diagnosis Pelvic pain- Primary Unspecified symptom associated with female genital organs documented in this encounter [facility] note* Diagnosis RLQ abdominal pain- Primary Abdominal pain, right lower quadrant Pelvic joint pain, right documented [facility]* Diagnosis Endometriosis- Primary Endometriosis, site unspecified Preop testing Unspecified pre-operative examination [facility] Diagnosis Endometriosis- Primary Endometriosis, site unspecified Preop testing Unspecified pre-operative examination [facility]* Diagnosis Endometriosis Endometriosis, site unspecified [facility] Additional Instructions Please arrange a follow-up appointment with your [facility] editorial cartoonist.[facility] Work Phone: Hospital Discharge instructions Additional Instructions Take Motrin and Tylenol as needed for mild to moderate pain. Take oxycodone as prescribed for severe pain. Follow-up with Dr. Ness or Dr. Grayson in the office regarding further treatment with a GnRH antagonistHol[facility] Work Phone: Hospital Discharge instructions Additional Instructions Take [place] as needed for severe pain, do not drink, drive, operate heavy machinery while taking Continue clindamycin as previously ordered by her dentist Return to emergency room for fever or chills, or dental abscess Follow-up with dentist and oral surgeon as scheduledHol[facility] Work Phone: Hospital Discharge instructionsAmbulatory Orders* Referral to Allergy/Immunology Time Frame: 12/07/23, Location: [facility] Work Phone: Hospital Discharge instructions* Attachments The following attachments cannot be sent through Care Everywhere. * Pelvic Pain ([place]) documented in this encounterButler Hospital Health SystemInstructionsNot on filedocumented in this encounterProMedica Health SystemInstructionsNot on filedocumented in this encounterProMedica Health SystemInstructionsNot on filedocumented in this encounterProFulton County Health Centerca Health SystemInstructionsNot on filedocumented in this encounterProMedimn Health SystemInstructionsNot on filedocumented in this encounterProCrestwood Medical Center Health SystemInstructionsNot on filedocumented in this encounterProMartin Memorial Hospital SystemProgress note No data available for this section [facility] Reason for referral (narrative)* Consultation (Routine) - New Request Specialty Diagnoses / Procedures Referred By Gina perez Referred To Contact Multispecialty Diagnoses RLQ abdominal pain Pelvic joint pain, right Davi Marie DO [address] [place] [address] Referral ID Status Reason Start Date Expiration Date V isits Requested Visits Authorized [id number] New Request 03/03/2024 03/28/2025 1 1 * Consultation (Routine) - New Request Specialty Diagnoses / Procedures Referred By Contac t Referred To Contact ASSISTANT BOILER OPERATOR Diagnoses RLQ abdominal pain Pelvic joint pain, right Davi Marie DO [address] [place] [address] Isabell Hodges DO [address] [place] [address] Referral ID Status Reason Start Date Expiration Date V isits Requested Visits Authorized [id number] New Request 03/03/2024 03/28/2025 1 1 [facility] Summary Purpose Family History Relationship Condition [...] Advance Directives No July 19, 2023 12:58pm Date Activated Date Inactivated Comments 06/10/2024 11:25 AM 06/10/2024 4:46 PM Chief Complaint and Reason for Visit Chief [...] Contact Procedures ECG Jennifer Moore MD [address] [place] [address] Referral ID Status Reason Start Date Expiration Date V isits Requested Visits Authorized [id number] New Request 02/16/2024 03/12/2025 1 1 Reason appt pt is elsiearmando robi to see whomever can see her first pt needs consult to discuss possible injection for right sided bursitis Diagnosis 1 Greater trochanteric bursitis of right hip (M70.61) Referral Organization [facility] Family Luiz Erazo Referring Provider First Name Jennifer Referring Provider Last Name Wilber Referring Provider Specialty Family Vincent villaseñor Referred Organization [facility] Ortho ped[facility] Referred Provider Chad Luna II Referred Address [address] [place], [place] Referred Provider Specialty Orthopedic S urgery Referral Priority Routine General Notes Angelita Trevino 01/12/2023 03:51:47 PM > referral sent p2p. pt understands that she will be contacted to schedule this appt. Reason appt consult for e zia and treatment of continued cough since covid infection Diagnosis 1 Cough (R05) Referral Organization [facility] Luiz Erazo Referring Provider First Name Jennifer [...] section and content) DATE CREATED AUTHOR 08/08/2020 [facility] DATE CREATED AUTHOR AUTHOR'S ORGANIZ ATION 05/03/2022 [facility] DATE CREATED AUTHOR AUTHOR'S ORGANIZ ATION 10/19/2022 [facility] DATE CREATED AUTHOR AUTHOR'S ORGANIZ ATION 06/23/2023 [facility] DATE CREATED AUTHOR AUTHOR'S ORGANIZ ATION 09/06/2023 [facility] DATE CREATED AUTHOR AUTHOR'S ORGANIZ ATION 10/21/2023 [facility] DATE CREATED AUTHOR AUTHOR'S ORGANIZ ATION 11/27/2023 [facility] DATE CREATED AUTHOR AUTHOR'S ORGANIZ ATION 02/16/2024 [facility] DATE CREATED AUTHOR AUTHOR'S ORGANIZ ATION 03/07/2024 [facility] DATE CREATED AUTHOR AUTHOR'S ORGANIZ ATION 03/30/2024 [facility] DATE CREATED AUTHOR AUTHOR'S ORGANIZ ATION 05/29/2024 [facility] DATE CREATED AUTHOR AUTHOR'S ORGANIZ ATION 06/11/2024 [facility] DATE CREATED AUTHOR AUTHOR'S ORGANIZ ATION 06/11/2024 [facility] DATE CREATED AUTHOR AUTHOR'S ORGANIZ ATION 06/25/2024 [facility] Care Teams (unrecognized sec tion and [...] Amaury Barlow , DO Emergency Provider Active Highway Administrative Engineer Relationship Specialty Start Date End Date Jennifer Duran, DO [address] [place] [address] PCP - General 11/27/07 Jennifer Duran, DO [address] [place] [address] Referring Family Practice 04/03/19 Avinash Velásquez MD [address] [place] [address] Referring ASSISTANT BOILER OPERATOR 11/30/21 Highway Administrative Engineer Relationship Specialty Start Date End Date Jennifer Duran, DO [address] [place] [address] PCP - General 11/27/07 Jennifer Duran, DO [address] [place] [address] Referring Family Medicine 04/03/19 Avinash Velásquez MD [address] [place] [address] Referring ASSISTANT BOILER OPERATOR 11/30/21 Highway Administrative Engineer Relationship Specialty Start Date End Date Jennifer Duran, DO [address] [place] [address] PCP - General 11/27/07 Jennifer Duran, DO [address] [place] [address] Referring Family Medicine 04/03/19 Avinash Velásquez MD [address] [place] [address] Referring ASSISTANT BOILER OPERATOR 11/30/21 Highway Administrative Engineer Relationship Specialty Start Date End Date Jennifer Duran, DO [address] [place] [address] PCP - General 11/27/07 Jennifer Duran, DO [address] [place] [address] Referring Family Medicine 04/03/19 Avinash Velásquez MD [address] [place] [address] Referring ASSISTANT BOILER OPERATOR 11/30/21 Highway Administrative Engineer Relationship Specialty Start Date End Date Jennifer Duran, DO [address] [place] [address] PCP - General 11/27/07 Jennifer Duran, DO [address] [place] [address] Referring Family Medicine 04/03/19 Avinash Velásquez MD [address] [place] [address] Referring ASSISTANT BOILER OPERATOR 11/30/21 Highway Administrative Engineer Relationship Specialty Start Date End Date Jennifer Duran, DO [address] [place] [address] PCP - General 11/27/07 Jennifer Duran, DO [address] [place] [address] Referring Family Medicine 04/03/19 Avinash Velásquez MD [address] [place] [phone] Referring ASSISTANT BOILER OPERATOR 11/30/21 Team Status: Active Member Role Status Dates Jennifer Duran , DO Primary Care Provider Active Yevgeniy Cabrera Jr, MD Emergency Provider Active Kiko Saenz , DO Admit Provider, Attending Provider Active Highway Administrative Engineer Relationship Specialty Start Date End Date Jennifer Duran, DO [address] [place] [address] PCP - General 11/27/07 Jennifer Duran, DO [address] [place] [address] Referring Family Medicine 04/03/19 Avinash Velásquez MD [address] [address] [place] [address] Referring ASSISTANT BOILER OPERATOR 11/30/21 Team Status: Inactive Member Role Status [...] Team Status: Inactive Member Role Status Austin Childress , DO Emergency Provider Active Jennifer [...] October 18, 2023 End: October 18, 2023 Highway Administrative Engineer Relationship Specialty Start Date End Date Jennifer Duran DO [address] [place] [facility] [place] [address] PCP - General Family Medicine 09/14/23 Team [...] March 23, 2024 End: March 23, 2024 Highway Administrative Engineer Relationship Specialty Start Date End Date No Pcp, [place] [address] PCP - General Family Medicine 03/07/24 Highway Administrative Engineer Relationship Specialty Start Date End Date No Pcp, [place] [address] PCP - General Family Medicine 03/07/24 Highway Administrative Engineer Relationship Specialty Start Date End Date No Pcp, [place] [address] PCP - General Family Medicine 03/07/24 Highway Administrative Engineer Relationship Specialty Start Date End Date No Pcp, [place] [address] PCP - General Family Medicine 04/05/24 Highway Administrative Engineer Relationship Specialty Start Date End Date No Pcp, [place] [address] PCP - General Family Medicine 06/05/24 Highway Administrative Engineer Relationship Specialty Start Date End Date No Pcp, [place] [address] PCP - General Family Medicine 06/05/24 Highway Administrative Engineer Relationship Specialty Start Date End Date No Pcp, [place] [address] PCP - General Family Medicine 06/05/24 Goals (unrecognized section and content) Goals may [...] encounterNot on filedocumented as of this encounter No data available for this section REASON [...] Procedures IRON SUCROSE INJECTION PER 1 MG Madyson Ni, HEMATOLOGY NURSE EDUCATOR.[address] [place] [address] Johny Treat [place] [address] [place] [address] Referral ID Status Reason Start Date Expiration Date V isits Requested Visits Authorized [id number] Authorized 03/10/2022 06/12/2022 99 99 Reason Comments Art Therapy Reason Comments Dental Pain Right lower, has luis t for root canal for mid king tylenol, toradol and tramadolCalled dentist today and [...] Reason Onset Date Comments Med Refill 04/09/2024 Reason Onset Date Comments abnormal CT 06/09/2024 Reason Onset Date Comments Post-op Problem 06/09/2024 Abdominal Pain 06/09/2024 Reason Onset Date Comments Appointment 06/11/2024 Source Comments (unrecognize d section and content) In the event this informatio n is protected by the Federal Confidentiality of Alcohol and Drug Abuse Patient Records regulations: The Federal rules restrict any use of the information to criminally investigate or prosecute any alcohol or drug abuse patient.[facility] the event this information is protected by the Federal Confidentiality of Alcohol and Drug Abuse Patient Records regulations: The Federal rules restrict any use of the information to criminally investigate or prosecute any alcohol or drug abuse patient.[facility] the event this information is protected by the Federal Confidentiality of Alcohol and Drug Abuse Patient Records regulations: The Federal rules restrict any use of the information to criminally investigate or prosecute any alcohol or drug abuse patient.[facility] the event this information is protected by the Federal Confidentiality of Alcohol and Drug Abuse Patient Records regulations: The Federal rules restrict any use of the information to criminally investigate or prosecute any alcohol or drug abuse patient.[facility] the event this information is protected by the Federal Confidentiality of Alcohol and Drug Abuse Patient Records regulations: The Federal rules restrict any use of the information to criminally investigate or prosecute any alcohol or drug abuse patient.[facility] HospitalIn the event this information is protected by the Federal Confidentiality of Alcohol and Drug Abuse Patient Records regulations: The Federal rules restrict any use of the information to criminally investigate or prosecute any alcohol or drug abuse patient.[facility] the event this information is protected by the Federal Confidentiality of Alcohol and Drug Abuse Patient Records regulations: The Federal rules restrict any use of the information to criminally investigate or prosecute any alcohol or drug abuse patient.[facility] Ordered Prescriptions (unrec ognized section and [...] 50 mg, Oral, ONCE, 1 dose, On [place] 01/22/24 at 1230 1230 (Given - Provid [...] mg, Intravenous, ONCE, 1 dose, On [place] 24 at 1430 1417 (Given - Provid er: Una Levy RN) Sodium chloride 0.9% IV solution 500 mL (COMPLETED) 500 mL, Intravenous, ONCE, 1 dose, On [place] 02/16/24 at 1430 1416 ($$New Bag$$ - Provider: Una Levy RN)1541 (Stopped - Provider: Una Levy RN) Sodium chloride 0.9% IV solution 75 mL (COMPLETED) 75 mL, Intravenous, ONCE, 1 dose, On [place] 24 at 1615, Radiology Procedure 1517 ($$New Bag$$ [...] 1 tablet, Oral, ONCE, 1 dose, On Tue03/03/24 at 1615 1632 (Given - Provid er: [...] BE BASED ON THE PRIMARY CLINICAL RECORDS. [facility]. provides no warranty or guarantee of the accuracy or completeness of information in this document.
[2024-06-27] MEDS: ONDANSETRON 4 MG RAPDIS TABLET SL (07:30)
[2024-06-27] MEDS: HYDROMORPHONE HCL 0.5 MG/0.5 ML SYRINGE IM (07:30)
--- NOTE | 2024-06-27 07:42 | ED_ITS ---
HPI HPI - General Adult General Chief complaint: Abdominal Pain Stated complaint: ABDOMINAL PAIN Time Seen by Provider: 06/27/24 07:22 Source: patient Mode of arrival: walk-in Limitations: no limitations History of Present Illness HPI narrative: Patient presents to ED complaining of right lower quadrant abdominal pain. She has a history of endometriosis and she had a hysterectomy and ovaries removed about 3 months ago. 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 Patient states she is scheduled mid July to go back to her [facility]UTIVE who is in the [facility] system to have another surgery to remove the rest of it. She said since then she has been dealing with pain. She said she just had an ultrasound as well as a CAT scan and the pain is similar. No UTI symptoms no vomiting no fevers. Patient is slightly nauseated from the pain. She says she has some Toradol at home but it was not helping. She states she is allergic to morphine but usually fentanyl or Dilaudid works. She is also requesting Zofran at this time. She said she has had multiple CAT scans in the past Related Data Home Medications ?Medication ?Instructions ?Recorded ?Confirmed alprazolam 0.25 mg tablet 0.25 mg PO Q8H PRN anxiety 09/20/23 04/12/24 citalopram 20 mg tablet (Celexa) 20 mg PO DAILY 09/20/23 04/12/24 atenolol 25 mg tablet 25 mg PO Q24H 02/11/24 04/12/24 Previous Rx's ?Medication ?Instructions ?Recorded ketorolac 10 mg tablet 10 mg PO TID PRN pain #10 tabs 10/22/23 ketorolac 10 mg tablet 10 mg PO Q8H PRN pain 1 day #14 06/27/24 tabs ondansetron 4 mg disintegrating 4 mg PO DAILY PRN nausea and 06/27/24 tablet vomiting #15 tabs Allergies Allergy/AdvReac Type Severity Reaction Status Date / Time morphine Allergy Severe itching Verified 06/27/24 07:19 prochlorperazine (From AdvReac Mild Anxiety Verified 06/27/24 07:19 Compazine) Opioid HPI Opioid Management Most Recent Opioid Data: Last Pain Scale 9 04/12/24 21:24 04/12/24 Last ORT Total Score 2 09/20/23 05:45 09/20/23 Last ORT Risk Category Low Risk 09/20/23 05:45 09/20/23 Review of Systems ROS Status of ROS 10 or more systems reviewed and unremark able except as noted in history and below [facility] History (Updated 06/27/24 @ 07:27 by Mary Alice Santiago DO) Ovarian cyst ?N83.209 - Unspecified ovarian cyst, unspecified side (ICD-10) Endometriosis ?N80.9 - Endometriosis, unspecified (ICD-10) LLQ abdominal pain ?R10.32 - Left lower quadrant pain (ICD-10) Complex cyst of left ovary ?N83.292 - Other ovarian cyst, left side (ICD-10) Toothache ?K08.89 - Other specified disorders of teeth and supporting structures (ICD- 10) Surgical History (Updated 09/20/23 @ 06:52 by Marichuy Daily, FER) History of removal of cyst ?Z98.890 - Other specified postprocedural states (ICD-10) History of cholecystectomy ?Z90.49 - Acquired absence of other specified parts of digestive tract (ICD- 10) Family History (Updated 09/20/23 @ 05:46 by Marichuy Daily, FER) Family/Other No problems noted. Father Family history of CHF (congestive heart failure) Family history of COPD (chronic obstructive pulmonary disease) Family history of diabetes mellitus Family history of hypertension Family history of myocardial infarction Mother Family history of hypertension Other Family history of cancer Social History Within the past year, how often did you have a drink containing alcohol: monthly or less Within the past year, how many standard drinks containing alcohol did you have on a typical day: 1 or 2 Within the past year, how often did you have six or more drinks on one occasion: never Total score: 0 Score interpretation: A score less than 3 is consistent with normal alcohol consumption. Smoking status: Never smoker Non-prescribed substance use: denies use Highest level of school completed/degree received: Associate degree: academic program Are you now , , , , never or living with a partner: In a typical week, how many times do you talk on the telephone with family, friends, or neighbors: 3 or more times per week How often do you get together with friends or relatives: 3 or more times per week Little interest or pleasure in doing things: not at all Feeling down, depressed, or hopeless: not at all Feel stressed/tense/nervous/anxious/difficulty sleeping: not at all Do you think of yourself as: straight/heterosexual Gender Identity: female Exam Narrative Exam Narrative: General: alert, no acute distress Cardiovascular: regular rate and rhythm, normal peripheral perfusion. Respiratory: Lungs CTA, respirations non labored. Extremities: no deformity, no trauma. Neurological: oriented x 4, LOC appropriate for age. Abdomen soft, mild right lower quadrant tenderness. No rebound no guarding no peritoneal signs. Normal bowel sounds Constitutional Vital Signs, click to edit/add: Last Vital Signs Temp 98.7 F 06/27/24 06:45 Pulse 84 06/27/24 06:45 Resp 18 06/27/24 06:45 BP 138/94 H 06/27/24 06:45 Pulse Ox 100 06/27/24 06:45 O2 Del Method Room Air 06/27/24 06:45 Course Vital Signs Vital signs: Vital Signs Temperature 98.7 F 06/27/24 06:45 Pulse Rate 84 06/27/24 06:45 Respiratory Rate 18 06/27/24 06:45 Blood Pressure 138/94 H 06/27/24 06:45 Pulse Oximetry 100 06/27/24 06:45 Oxygen Delivery Method Room Air 06/27/24 06:45 Temperature 98.7 F 06/27/24 06:45 Pulse Rate 84 06/27/24 06:45 Respiratory Rate 18 06/27/24 06:45 Blood Pressure 138/94 H 06/27/24 06:45 Pulse Oximetry 100 06/27/24 06:45 Oxygen Delivery Method Room Air 06/27/24 06:45 Medical Decision Making MDM Narrative Medical decision making narrative: Patient was given IM Dilaudid and p.o. Zofran for her pain control. She did get Percocet recently and still has some left at home. I will refill Toradol as well as Zofran for home. Return to ED if worsening symptoms otherwise follow-up with OPERATIONS EXECUTIVE. Patient is comfortable with care plan for home. Differential Diagnosis Differential Diagnosis: Endometriosis, ovarian remnant syndrome, abdominal pain Discharge Plan Discharge Chief Complaint: Abdominal Pain Clinical Impression: Abdominal pain Patient Disposition: Home, Self-Care Time of Disposition Decision: 07:27 Condition: Good Mode of Transportation: Private Vehicle Prescriptions / Home Meds: New ketorolac 10 mg tablet 10 mg PO Q8H PRN (Reason: pain) 1 Days Qty: 14 0RF ondansetron 4 mg tablet,disintegrating 4 mg PO DAILY PRN (Reason: nausea and vomiting) Qty: 15 0RF No Action ketorolac 10 mg tablet 10 mg PO TID PRN (Reason: pain) Qty: 10 0RF alprazolam 0.25 mg tablet 0.25 mg PO Q8H PRN (Reason: anxiety) citalopram [Celexa] 20 mg tablet 20 mg PO DAILY atenolol 25 mg tablet 25 mg PO Q24H Print Language: Setswana Instructions: Abdominal Pain (ED) Referrals: JENNIFER DURAN [Primary Care Provider] - 1 week
== END 2024-06-27 07:46 | disposition home or self-care (01) ==
PROVIDERS: Emergency Provider Emergency Medicine; PCP Family Medicine
DX: R10.31 Right lower quadrant pain (principal); Z90.710 Acquired absence of both cervix and uterus; Z90.49 Acquired absence of other specified parts of digestive tract
CPT/HCPCS: 96372; 99284; J1171; Q0162

== ENCOUNTER 2024-07-09 23:26 | Emergency (ER) | payer BC, SELFPAY ==
[2024-07-09 23:30] VITALS: BP 162/90; PULSE 102; TEMP 37.1; O2SAT 100; BMI 30.8
--- OUTSIDE RECORDS SUMMARY | 2024-07-09 23:33 | XMS_ITS | CCD ---
Author Organization [facility] Care Team Providers Care Electro Mechanical Technologist Name Role Phone DO Jennifer Duran Primary Care Provider [phone] DO Augustus Santiago Attending Provider DO Amaury Barlow Emergency Provider Jennifer Duran Primary Care Physician Jennifer Duran Unavailable DO Jennifer Duran Primary Care Provider [phone] DO Jennifer Duran Attending Provider Jennifer Duran DO Primary Care Provider Jennifer Duran DO Unavailable Didier BARNETT, Penola P Unavailable [phone] Jennifer Duran DO Primary Care Provider [phone] Jennifer Duran DO Unavailable [phone] DO Jennifer Duran Primary Care Provider DO Jennifer Duran Attending Provider MD Yevgeniy Cabrera Jr Emergency Provider DO Kiko Saenz Admit Provider DO Kiko Saenz Attending Provider Jennifer Duran DO Primary Care Provider Jennifer Duran DO Unavailable [phone] Didier BARNETT, Penola P Unavailable JENNIFER DURAN Primary Care Unavailable MADYSON [...] Unavailable DO Jennifer Duran Primary Care Provider [phone] DO Elier bacon Emergency Provider DO Ming Childress Emergency Provider MD Megan Garcia Admit Provider [phone] MD Megan Muniz Attending Provider DO Kiko Saenz Other Provider MD Christi Aquino Attending Provider [phone] DO Jaime Aleman Attending Provider LLC, GENERIC Primary Care Physician Unavailab DO Jennifer Rm Primary Care Provider [facility], DO Elier Leos Emergency Provider [phone] DO Jaime Aleman Attending Provider [phone] DO Ming Childress Emergency Provider UnavaMD Megan Lira Admit Provider MD Christi Aquino Attending Provider [phone] Visctigre, DO Hoover Other Provider NO FAMILY, PHYSICIAN Primary Care Provider Unava joe SEN MD, EVGENY Attending Unavailable JENNIFER DURAN Primary Care [facility] NONE, XXXX Primary Care Physician Unavailab DESTINI Sheehan Attending Unavailable TARUN BRADEN Attending Unavailable Jennifer Duran DO Primary Care Provider Unavail able DO Jennifer Duran Primary Care Provider [phone] CATY Corbett Emergency Provider [phone] DO Jennifer Duran Attending Provider Jennifer Duran Primary Care Unavailable Megan Muniz Admitting Unavailable Kiko Saenz Consulting Unavailable Christi Aquino Attending Unavailable Imani Corbett Admitting Unavailable Jennifer Duran Primary Care Unavailable Imani Corbett Attending Unavailable Elier Jackson Attending Unavailable Elier Jackson M Admitting Unavailable NO FAMILY, PHYSICIAN Primary Care Unavailable Jennifer Duran Primary Care Unavailable Ming Childress Attending Unavailable Ming Childress Admitting Unavailable Jennifer Duran Primary Care Unavailable Jennifer Duran Attending Unavailable Wilber, Jennifer Admitting Unavailable Wilber, Jennifer Primary Care Unavailable Love - CHC, Jaime P Attending Unavailable Pawans - CHC, Jaime P Admitting Unavailable Elier Jackson M Attending Unavailable Wilber, Jennifer Primary Care Unavailable Manuel, Elier M Admitting Unavailable Unavailable Primary Care Provider Unavailabl e Unavailable Primary Care Provider Unavailabl DAVI Maradiaga [...] No Pcp Primary Care Provider Unavailabl e ROSE HARDY Attending Unavailable JACY SALDANA Attending Unavailable JENNIFER DURAN Primary Care Unavailable EREN CAMEJO Attending Unavailable JENNIFER DURAN Primary Care Unavailable EREN CAMEJO Attending Unavailable No Pcp, No Pcp Primary Care Provider Unavailabl e ADIEL APARICIO Referring Unavailable NO PCP, NO PCP Primary Care Unavailable NO PCP, NO PCP Primary Care Unavailable ADIEL APARICIO Admitting Unavailable ADIEL APARICIO Attending Unavailable NO PCP, NO PCP Primary Care Unavailable NO PCP, NO PCP Primary Care Unavailable JAY JAY MCDERMOTT Attending Unavailab ROBBIE Machado Referring Unavailable NO PCP, NO PCP Primary [...] Raya Attending Unavailab GUSTAVO Raya Referring Unavailab le NO PCP, NO PCP Primary Care Unavailable NO PCP, NO PCP Primary Care Unavailable JIMENA FARMER Attending Unavailable NO PCP, NO PCP Primary Care Unavailable TYRONE CHENG Attending Unavailable NO PCP, NO PCP Primary Care Unavailable ROSE WILSON Attending Unavailable NO PCP, NO PCP Primary Care Unavailable TYRONE CHENG Attending Unavailable Ivana, Ritesh S. Attending Unavailable Konstantin Penny Attending Unavailable Ivana, Ritesh SEbenezer Attending Unavailable Jignesh Dumont Attending Unavailable Ivana, Ritesh SEbenezer Attending Unavailable DO Jordyn Willett Attending Unavailable Ivana, Ritesh S. Attending Unavailable Provider, None Primary Care Unavailable Eran Hill Attending Unavailable Provider, None Primary Care Unavailable Jasmyn Magana Attending Unavailable RANDEE RICHARDSON Attending Unavailable DO Jordyn Willett Attending Unavailable Allergies Allergy Classification Reported Allergen(s) Allergy Type Date of Onset Reaction(s) Facility (20 sources) Morphine; Translations: [MORPHINE] Drug Allergy 06-20-19 Other: See Comments, Itching (finding), Itching, Hives [facility] (19 sources) Atenolol Drug Allergy 04-18-20 Dr. Cantu/ [facility] (6 sources) seasoninig Propensity to adverse reactions Unknown [employer] Other (1 source) Morphine Drug Allergy 07-28-19 [facility] (18 sources) Seasonal allergy Propensity to adverse reactions 04-18-20 Unknown, Watery Eye [facility] (20 sources) Prochlorperazine; Translations: [prochlorperazine ] Drug Allergy 05-25-20 Feeling nervous (finding), Anxiety [facility] (1 source) Morphine Drug Allergy 04-30-20 [facility] Repository (3 sources) Atenolol Propensity to adverse reactions to drug 04-18-20 [facility] (3 sources) Phenothiazine Propensity to adverse reactions to drug 05-25-20 Anxiety, Itching [facility] (3 sources) Octacosanol Propensity to adverse reactions to drug 04-18-20 [facility] (2 sources) No Known Medication Allergies; Translations: [No Known Medication Allergies] Propensity to adverse reactions (disorder) [facility] Repository Medications Current Medications Medication Drug Class(es) [...] for 3 day(s), 12 tab(s), Refill(s) 0, [facility]/pharmacy #[id number], 165.1, cm, 07/31/23 15:42:00 [...] days Jan, Active Start: 12-04-2021 End: 09-14-2023 alprazolam 0.25 mg Tab Refil ls(s) 0 Start Date: 12/04/21 Status: Ordered Start: 12-04-2021 End: 03-29-2023 alprazolam 0.25 mg Tab Refil ls(s) 0 Start Date: 12/04/21 Status: Ordered Start: 03-12-2019 Xanax 0.5 MG 1 /2 [...] day(s), # 250 mL, Refills(s) 0, Pharmacy: [facility]/pharmacy #[id number], 166, cm, 12/04/21 12:54:00 [...] for 7 day(s), 14 tab(s), Refill(s) 0, [facility]/pharmacy #[id number], 165.1, cm, 02/13/24 0:28:00 [...] Start: 05-18-2021 take 1 tablet by melodie once daily at mealtime Aspirin EC 81 MG 1 tablet Orally qd with food May, Not-Taking atenolol 25 mg oral tablet (20 sources) beta-Adrenergic Graciela Start: 01-19-2024 take 1 tablet by mouth in the morning atenoloL (TENORMIN) 25 mg tablet Take 1 tablet (25 mg total) by mouth in the morning. 01/19/2024 Active Start: 01-19-2024 End: 03-23-2024 take 1 tablet by mouth once daily [...] 11/18/2023 Active diflunisal 500 mg oral tablet (5 sources) Nonsteroidal Anti-inflammatory Drug Start: 09-26-2023 take 1 tablet by mouth every twelve hours diflunisal 500 mg Tab 500 mg = 1 tab(s), Oral, q12hr, # 20 tab(s), Refills(s) 0, Pharmacy: [facility]/pharmacy #[id number], 165, cm, 09/26/23 14:18:00 EDT, Height/Length Dosing, 81.2, kg, 09/26/23 14:18:00 EDT, Weight Dosing Start Date: 09/26/23 Status: Ordered docusate sodium 50 mg / sennosides, half-way 8.6 mg oral tablet (4 sources) Start: [...] April 28, 2022 1:50am 84 hr estradiol 0.47466 mg/hr / norethindrone acetate 0.74876 mg/hr transdermal system (4 sources) Estrogen Start: 04-09-2024 estradiol-norethindrone acet (COMBIPATCH) 0.05-0.14 mg/[address] 1 patch on the skin 2 (two) times a week. 24 patch 4 04/09/2024 Active ferrous sulfate (20 sources) Start: 07-23-2020 take 1 tablet by mouth every other day Ferrous Sulfate 325 (65 Fe) MG 1 tablet Orally qod Jul, Active Start: 07-23-2020 take 1 tablet by melodie th every twenty-four hours Ferrous Sulfate 325 [...] day(s), # 20 tab(s), Refills(s) 0, Pharmacy: [facility]/pharmacy #[id number], 165, cm, 09/26/23 14:18:00 [...] hours. ketorolac tromethamine 10 mg oral tablet (12 sources) Nonsteroidal Anti-inflammatory Drug, Cyclooxygenase Inhibitor take 1 tablet by mouth every six hours as needed ketorolac (TORADOL) 10 MG tablet Take 1 tablet by mouth every 6 hours as needed Active mupirocin 0.02 mg/mg topical ointment (1 source) RNA Synthetase Inhibitor Antibacterial Start: End: mupirocin Top 2% Oint 1 luis, Topical, TID for 10 day(s), 22 gm, Refill(s) 0, [facility]/pharmacy #[id number], 166, cm, 12/04/21 12:54:00 [...] by Nasal route once for 1 dose. Courtland into the nose as directed. Call 911. [...] On Obdulia 02/16/24 at 1430 Start: 01-22-2024 ondansetron (Z OFRAN-ODT) [address] 1 tablet [...] MG PO Three times daily 02 13September 14, 2021 12:00am April 28, 2022 1:50am [...] day(s), # 12 cap(s), Refills(s) 0, Pharmacy: [facility]/pharmacy #[id number], 165.1, cm, 04/24/23 13:32:00 EST, Height/Length Dosing, [...] 12 March 29, 2023 polyethylene glycol 3350 50753 mg powder for oral solution (2 sources) Osmotic Laxative Start: 09-26-2023 End: 10-03-2023 take 17 g by mouth once daily Miralax 3350 17 gram packet 17 gm, Oral, Daily, X 7 day(s), # 119 gm, Refills(s) 0, Pharmacy: [facility]/pharmacy #[id number], 165, cm, 09/26/23 14:18:00 EDT, Height/Length Dosing, 81.2, kg, 09/26/23 14:18:00 EDT, Weight Dosing Start Date: 09/26/23 Stop Date: 10/03/23 Status: Ordered Symbicort 80/4.5 inhalation aerosol with adapter (8 sources) Start: 12-04-2021 Symbicort 80/4 .5 inhalation [...] Drug Class(es) Dates Sig (Normalized) Sig (Original) [id number] 200 actuat albuterol 0.09 mg/actuat metered dose [...] 30 mg oral tablet (7 sources) Uncompetitive X-rtgjwf-X-asparta te Receptor Antagonist, Sigma-1 Agonist Start: 08-11-2021 take 1 tablet by mouth every six hours as needed Buhl DMT 30-30 MG 1 tablet Orally q6 hrs prn Aug, Not-Taking diphenhydrAMINE hydrochloride 25 mg oral capsule (7 sources) Histamine-1 Receptor Antagonist take 1 capsule by mouth every six hours as needed diphenhydrAMINE (BENADRYL) 25 mg capsule Take 25 mg by mouth every 6 hours as needed. 0 Active Comment on above: Take 25 mg by mouth every 6 hours as needed. 2 ml fentaNYL 0.05 mg/ml injection (2 sources) Opioid Agonist Start: 06-27-2024 End: 06-27-2024 take 1 dose by mouth every hour 50 mcg, IntraVENous, ONCE, 1 dose, On Tue06/27/24 at 1500, If oral and IV narcotics ordered, use oral first and only use IV if oral is ineffective or cannot take oral. Do Not give oral and IV within 1 hour of each other unless specifically ordered. Start: 06-27-2024 End: 06-27-2024 take 1 dose by mouth every hour 50 mcg, IntraVENous, ONCE, 1 dose, On Tue06/27/24 at 1400, If oral and IV narcotics ordered, use oral first and only use IV if oral is ineffective or cannot take oral. Do Not give oral and IV within 1 hour of each other unless specifically ordered. homatropine methylbromide 0.3 mg/ml / HYDROcodone bitartrate 1 mg/ml oral solution (20 sources) Opioid Agonist, Cholinergic Muscarinic Agonist Start: 07-28-2023 End: 09-07-2023 Hydrocodone-Homatropine (Hycodan) 5-1.5 mg/5 mL [...] Maleate Discontinued 5 MG PO Q8H 20 7 March 29, 2023 12:00am April 30, 2023 [...] Onset: 05-30-2018 07-06-2018 Chronic Nausea and vomiting (3 sources) Nausea with vomiting, unspecified; Translations: [Nausea] [...] conditions (not mental disorders or infectious disease) (6 sources) Other specified abnormal findings of blood [...] Hypokalemia; Translations: [Hypokalemia] Onset: 01-27-2024 06-20-2019 Episodic Other liver diseases (1 source) Abnormal [...] Interpretation Reference Range Facility ED Clinical Summaryon 2024 ED Clinical Summary ED Clinical Summary [address] [id number] ED Clinical Summary Person Information Name: ANTONIA NOYOLA/NewMary Grace Age: 39 Years : 1985 Sex: Female Language: Citizen Of [place] PCP: NONE, XXXX Marital Status: Visit Id: Visit Reason: Nausea; Abdominal pain; ABD PAIN Speciality: Acuity: 3 Enc Type: Emergency Med Service: Emergency Arrival: 06/27/2024 21:46:23 Discharge: 06/28/2024 01:38:45 LOS: 000 03:52 Checkin: 06/27/2024 21:46:23 Checkout: 06/28/2024 01:38:45 Dispo Type: Home (Routine DC) EVENTS: Event Name Event Status Request Date/Time Start Date/Time Complete Date/Time Arrive Complete 06/27/2024 21:46:23 06/27/2024 21:46:23 06/27/2024 21:46:23 Document Home Meds Request 06/27/2024 21:46:23 Triage Complete 06/27/2024 21:46:23 06/27/2024 22:16:28 06/27/2024 22:16:28 Registration Complete 06/27/2024 21:49:01 06/27/2024 21:49:01 06/27/2024 21:49:01 Reg Complete Request 06/27/2024 21:49:01 Reg Bed Request Complete 06/27/2024 21:49:01 06/27/2024 21:49:01 06/27/2024 21:49:01 Pending Labs Request 06/27/2024 22:18:09 Lab Complete 06/27/2024 22:18:09 06/27/2024 23:41:02 Pending Labs Complete 06/27/2024 23:14:36 06/27/2024 23:14:36 06/27/2024 23:41:02 Lab Complete 06/27/2024 23:14:36 06/27/2024 23:14:36 06/27/2024 23:41:02 Pending Labs Complete 06/27/2024 23:47:31 06/27/2024 23:47:31 06/27/2024 23:47:31 Bed Assign Complete 06/27/2024 23:52:17 06/27/2024 23:52:17 06/27/2024 23:52:17 Dr Exam Complete 06/27/2024 23:52:17 06/27/2024 23:52:42 06/27/2024 23:52:42 RN Exam Complete 06/27/2024 23:52:17 06/28/2024 00:10:33 06/28/2024 00:10:33 Registration Request 06/27/2024 23:52:42 Meds Admin Complete 06/28/2024 00:24:54 06/28/2024 00:41:28 Meds Admin Complete 06/28/2024 00:46:25 06/28/2024 01:20:52 Discharge Complete 06/28/2024 00:47:27 06/28/2024 01:38:52 06/28/2024 01:38:52 Transfer Complete 06/28/2024 01:38:52 06/28/2024 01:38:52 06/28/2024 01:38:52 ADDRESS: [address] [place] [id number] [facility] DOC NOTES: MEDICAL INFORMATION: Prescriptions Given: Medications to Continue with No Changes Other Medications acetaminophen-oxycodon e (Percocet 5 mg-325 mg oral tablet) 1 Tablets By Mouth every 8 hours for 3 Days. Refills: 0. diflunisal (diflunisal 500 mg Tab) 1 Tablets By Mouth every 12 hours. Refills: 0. PATIENT EDUCATION INFORMATION: Instructions: Abdominal Pain, Adult, [id number] Follow up: With: Address: When: [address] [place] [address] Business (1) In 3 days 07/01/2024 Comments: Please follow-up with your primary care doctor and CHIEF INVESTIGATOR for further evaluation and management. Return to the ED for any new or worsening symptoms. With: Address: When: XXXX NONE , [place] In 3 days DIAGNOSIS: Abdominal pain; Nausea Normal [facility] ED Note-Physicianon 06-28-19 ED Note-Physician ED Note-Physician Basic Information Time Seen: Jordyn Willett DO 06/27/2024 23:52 Chief Complaint (R) sided ABD pain with radiation into back. States stage 4 endometriosis and recent hyster. Nasuea, no vomiting. Percocet and Toradol without relief. Seen 3 days ago with same complaint History of Present Illness Patient is a 39-year-old female with past medical history of endometriosis presenting to the ED for evaluation of right sided abdominal pain. Patient states the pain started 3 days ago was seen at this facility at that time workup at that time was negative was discharged home with pain medication. Patient states the pain is progressively worsening despite taking the Percocet, Toradol. Patient denies any fevers or chills. 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 Review of Systems A 10 point review of systems is negative except as noted above. Medical and Surgical History: Reviewed and noted Social history: Lives at home Tobacco: Denies Physical Exam Vitals & Measurements T: 36.3 ???C(Oral) HR: 119(Monitored) RR: 20 BP: 157/134 SpO2: 95% HT: 165.1 cm WT: 89.3 kg BMI: 32.76 General: Well developed, non toxic appearing, no acute distress HEENT: Head atraumatic, Mucosa moist, hearing grossly normal Neck: No JVD, tracheal deviation Cardiac: Tachycardic, normal rhythm, no murmurs, or gallops, 2+ radial pulses Respiratory: Lungs clear to auscultation B/L, normal respiratory effort Abdomen: Soft palpation in the right lower quadrant no rebound or guarding, no peritoneal signs Extremities: No edema noted in the LE B/L, no tenderness to palpation Neurologic: Alert and oriented, speech clear Skin: No rashes or lesions Psych: Appropriate mood and behavior Medical Decision Making MEDICAL DECISION MAKING Number and Complexity of Problems Differential Diagnosis: [] [facility] Data External documents reviewed: [] My EKG interpretation: [] My CT interpretation: [] My X-ray interpretation: [] My Ultrasound interpretation: [] Decision rules/scores evaluated: [] Discussed with: [] Treatment and Disposition ED Course: Patient is a 39-year-old female presenting to the ED for evaluation of right sided abdominal pain. Patient is tachycardic on initial arrival otherwise in no acute distress. Did report review of workup from previous visit does appear unremarkable. Due to her complaints repeat laboratory evaluation is obtained is unremarkable. Patient does have multiple prescription's for multiple providers and multiple different facilities when reviewing her OARRS. I did review [facility] patient was seen at both [place] and [facility]. Discussed with the patient she states that they did not do anything I did review labs. Does appear patient has multiple visits to multiple different facilities has had extensive workup including pelvic ultrasound CT imaging which do show a right centimeter complex ovarian cyst. Patient is given one-time dose of pain medication. Discussed findings with patient she is discharged home. She is to follow-up with her primary care doctor for further evaluation management. I do not feel comfortable writing patient a prescription for narcotics as she has multiple prescribers from multiple different facilities. Shared decision making: [] Code status: [] Assessment/Plan Abdominal pain (R10.9: Unspecified abdominal pain) Nausea (R11.0: Nausea) Orders: acetaminophen-oxycodon e, 1 EA, Tab, Oral, Once, Stop date 06/28/24 0:46:00 EST, STAT, Start date 06/28/24 0:46:00 EST HYDROmorphone, 1 mg = 1 mL, Injection, IV Push, Once, Stop date 06/28/24 0:24:00 EST, STAT, Start date 06/28/24 0:24:00 EST, 06/28/24 0:24:00 EST ketorolac, 15 mg = 1 mL, Injection, IV Push, Once, Stop date 06/28/24 0:24:00 EST, STAT, Start date 06/28/24 0:24:00 EST, 06/28/24 0:24:00 EST ondansetron, 4 mg = 2 mL, Injection, IV Push, Once, Stop date 06/28/24 0:24:00 EST, STAT, Start date 06/28/24 0:24:00 EST, 06/28/24 0:24:00 EST Basic Metabolic Panel CBC w/ Auto Diff eGFR Extra Blue Tube Extra SST Tube Hepatic Function Panel Lipase Level UA with Cult Rflx Medications Administered Given Dilaudid 1 mg/mL injectable solution, 1 mg, IV Push ketorolac 15 mg/mL Inj, 15 mg, IV Push TO GO acetaminophen-oxycodon e 325 mg - 5 mg, 1 EA, Oral Zofran 4 mg/2 mL Injection, 4 mg, IV Push Disposition Plan Discharge Prescription List Prescriptions No active prescription medications Follow-up With When Contact Information [employer] In 3 days 07/01/[address] [place], [place] [id number]- Business (1) Additional Instructions: Please follow-up with your primary care doctor and CHIEF INVESTIGATOR for further evaluation and management. Return to the ED for any new or worsening symptoms. XXXX NONE In 3 days [place] Additional Instructions: Patient Education Abdominal Pain, Adult, Pzta-hc-Nlow Problem List/Past (more content not included)... Normal [facility] Comment on above: Result Comment: Elec tronically Signed By: Jordyn Willett DO\.br\Date and Time Signed: 06/28/24 03:41 EST ED Patient Summaryon 025 ED Patient Summary ED Patient Summary [address] [address] Patient Discharge Instructions Person Information Name: ANTONIA NOYOLA Age: 39 Years Arrival Date: 06/27/2024 21:46:23 Discharge Diagnosis: Abdominal pain; Nausea Primary Care Physician: NONE, XXXX Provider Information Primary Provider: Jordyn Willett DO Advanced Jewelry Designer:None The exam and treatment you received in the Emergency Department were for an urgent problem and are not intended as complete care. It is important that you follow up with a doctor, nurse practitioner, or physician???s assistant professor of nursing for ongoing care. If your symptoms become worse or you do not improve as expected and you are unable to reach your usual health care provider, you should return to the Emergency Department. We are available 24 hours a day. ANTONIA NOYOLA has been given the following list of patient education materials, prescriptions and follow-up instructions: Follow-up Instructions: With: Address: When: [facility] [place] [address] Business (1) In 3 days 07/01/2024 Comments: Please follow-up with your primary care doctor and CHIEF INVESTIGATOR for further evaluation and management. Return to the ED for any new or worsening symptoms. With: Address: When: XXXX [facility] , [place] In 3 days In the event that this physician does not participate in your insurance network, please consult with your insurance company to find a nearby participating provider. Patient Education Materials: Abdominal Pain, Adult, Xklw-zr-Ljrd A MESSAGE TO ALL PATIENTS REGARDING OPIOIDS PRESCRIPTION OPIOIDS: WHAT YOU NEED TO KNOW Prescription opioids can be used to help relieve jhlxbbpk-lt-ceucdh pain and are often prescribed following a [...] as well, even when taken as directed: ??? Tolerance???meaning you might need to take more of the medication for the same pain relief ??? Physical dependence???meaning you have symptoms of withdrawal when a medication is stopped ??? Increased sensitivity to pain ??? Constipation ??? Nausea, vomiting, and dry mouth ??? Sleepiness and dizziness ??? Confusion ??? Depression ??? Low levels of testosterone that can result in lower sex drive, energy, and strength ??? Itching and sweating RISKS ARE GREATER WITH: ??? History of drug misuse, substance use disorder, or overdose ??? Mental health conditions (such as depression or anxiety) ??? Sleep apnea ??? Older age (65 years and older) ??? Avoid alcohol while taking prescription opioids. Also, unless specifically advised by your health care provider, medications to avoid include: ??? Benzodiazepines (such as Xanax or Valium) ??? Muscle relaxants (such as Soma or Flexeril) ??? Hypnotics (such as Ambien or Lunesta) ??? Other prescription opioids KNOW YOUR OPTIONS Talk to your health care provider about ways to manage your pain that don???t involve prescription opioids. Some of these options may actually work better and have fewer risks and side effects. Options may include: ??? Pain relievers such as acetaminophen, ibuprofen, and naproxen ??? Some medication that are also used for depression or seizures ??? Physical therapy and exercise ??? Cognitive behavioral therapy, a psychological, goal-directed approach, in which patients learn how to modify physical, behavioral, and emotional triggers of pain and stress. IF YOU ARE PRESCRIBED OPIOIDS FOR PAIN: ??? Never take opioids in greater amounts or more often than prescribed. ??? Follow up with your primary health care provider. o Work together to create a plan on how to manage your pain. o Talk about ways to help manage your pain that don???t involve prescription opioids. o Talk about any and all concerns and side effects. ??? Help prevent misuse and abuse o Never sell or share prescription opioids. o Never use another person???s prescription opioids. ??? Store prescription opioids in a secure place and out of reach of others (this may include visitors, children, friends, and family). ??? Safely dispose of unused prescription opioids: Find your community drug take-back program or your pharmacy mail-back program, or flush them down the toilet, following guidance from the Food and Drug Administration (www.fda.gov/Boris (more content not included)... Normal [facility] BMPon 06-27-2024 Anion gap [Moles/Vol] 14 mmol/L Normal 6-16 [facility] Comment on above: Performed By: #### 2 [id number] #### [facility] [address] [place] [address] Calcium [Mass/Vol] 10.3 mg/dL Normal 8.9-11.1 [facility] Comment on above: Performed By: #### 2 [id number] #### [facility] [address] [place] [address] Chloride [Moles/Vol] 106 mmol/L Normal 101-111 [facility] Comment on above: Performed By: #### 2 [id number] #### [facility] [address] [place] [address] CO2 [Moles/Vol] 23 mmol/L Normal 21-31 [facility] Comment on above: Performed By: #### 2 [id number] #### [facility] [address] [place] [address] Creatinine [Mass/Vol] 0.9 mg/dL Normal 0.5-1.3 [facility] Comment on above: Performed By: #### 2 [id number] #### [facility] [address] [place] [address] Glucose [Mass/Vol] 108 mg/dL Normal 55-199 [facility] Comment on above: Performed By: #### 2 [id number] #### [facility] [address] [place] [address] Potassium [Moles/Vol] 3.9 mmol/L Normal 3.5-5.3 [facility] Comment on above: Performed By: #### 2 [id number] #### [facility] [address] [place] [address] Sodium [Moles/Vol] 139 mmol/L Normal 135-145 [facility] Comment on above: Performed By: #### 2 [id number] #### [facility] [address] [place] [address] Urea nitrogen [Mass/Vol] 7 mg/dL Normal 5-21 [facility] Comment on above: Performed By: #### 2 [id number] #### [facility] [address] [place] [address] Urea nitrogen/Creatinine [Mass ratio] 8 No Units Low 10-20 [facility] Comment on above: Performed By: #### 2 [id number] #### [facility] [address] [place] [address] CBC w/ Auto Diffon 5 Basophils/100 WBC (Bld) 1.1 % Normal 0.0-2.0 [facility] Comment on above: Performed By: #### 2 [id number] #### [facility] [address] [place] [address] Basophils/Leukocytes Auto (Bld) [Pure # fraction] 0.1 E9/L Normal 0.0-0.2 [facility] Comment on above: Performed By: #### 2 [id number] #### [facility] [address] [place] [address] Eosinophils (Bld) [#/Vol] 0.0 E9/L Normal 0.0-0.5 [facility] Comment on above: Performed By: #### 2 [id number] #### [facility] [address] [place] [address] Eosinophils/100 WBC (Bld) 0.2 % Normal 0.0-8.0 [facility] Comment on above: Performed By: #### 2 [id number] #### [facility] [address] [place] [address] Erythrocyte distribution width (RBC) [Ratio] 19.8 % High 10.9-14.2 [facility] Comment on above: Performed By: #### 2 [id number] #### [facility] [address] [place] [address] Hematocrit (Bld) [Volume fraction] 37.8 % Normal 34.0-46.0 [facility] Comment on above: Performed By: #### 2 [id number] #### [facility] [address] [place] [address] Hemoglobin (Bld) [Mass/Vol] 12.0 g/dL Normal 12.0-16.0 [facility] Comment on above: Performed By: #### 2 [id number] #### [facility] [address] [place] [address] Hypochromia Auto Ql (Bld) PRESENT Invalid Interpretation Code [facility] Comment on above: Performed By: #### 2 [id number] #### [facility] [address] [place] [address] Lymphocytes (Bld) [#/Vol] 1.7 E9/L Normal 1.0-4.0 [facility] Comment on above: Performed By: #### 2 [id number] #### [facility] [address] [place] [address] Lymphocytes/100 WBC (Bld) 23.6 % Normal 14.0-50.0 [facility] Comment on above: Performed By: #### 2 [id number] #### [facility] [address] [place] [address] MCH (RBC) [Entitic mass] 22.8 pg Low 27.0-34.0 [facility] Comment on above: Performed By: #### 2 [id number] #### [facility] [address] [place] [address] MCHC (RBC) [Mass/Vol] 31.8 g/dL Normal 31.4-36.0 [facility] Comment on above: Performed By: #### 2 [id number] #### [facility] [address] [place] [address] MCV (RBC) [Entitic vol] 71.7 fL Low 80.0-100.0 [facility] Comment on above: Performed By: #### 2 [id number] #### [facility] [address] [place] [address] Microcytes Ql (Bld) PRESENT Invalid Interpretation Code [facility] Comment on above: Performed By: #### 2 [id number] #### [facility] [address] [place] [address] Monocytes (Bld) [#/Vol] 0.3 E9/L Normal 0.2-1.0 [facility] Comment on above: Performed By: #### 2 [id number] #### [facility] [address] [place] [address] Neutrophils (Bld) [#/Vol] 5.0 E9/L Normal 2.0-7.5 [facility] Comment on above: Performed By: #### 2 [id number] #### [facility] [address] [place] [address] Neutrophils/100 WBC (Bld) 71.3 % Normal 36.0-75.0 [facility] Comment on above: Performed By: #### 2 [id number] #### [facility] [address] [place] [address] Platelet 552.0 E9/L High 150.0-500.0 [facility] Comment on above: Performed By: #### 2 [id number] #### [facility] [address] [place] [address] Platelet mean volume (Bld) [Entitic vol] 7.5 fL Normal 6.4-10.8 [facility] Comment on above: Performed By: #### 2 [id number] #### [facility] [address] [place] [address] RBC (Bld) [#/Vol] 5.3 E12/L Normal 4.3-5.9 [facility] Comment on above: Performed By: #### 2 [id number] #### [facility] [address] [place] [address] RBC size Nom (Bld) SEE MORPHOLOGY Invalid Interpretation Code [facility] Comment on above: Performed By: #### 2 [id number] #### [facility] [address] [place] [address] WBC corrected for nucl RBC Auto (Bld) [#/Vol] 7.0 E9/L Normal 4.0-11.0 [facility] Comment on above: Performed By: #### 2 [id number] #### [facility] [address] [place] [address] CBC with Diffon 06-27-2024 Basophils (Bld) [#/Vol] 0.09 10*3/uL [facility] Basophils/100 WBC (Bld) 1 % 0 - 2 % [facility] Eosinophils (Bld) [#/Vol] 0.06 10*3/uL [facility] Eosinophils/100 WBC (Bld) 1 % 1 - 4 % [facility] Erythrocyte distribution width (RBC) [Ratio] 17.9 % High 11.8 - 14.4 % [facility] Hematocrit (Bld) [Volume fraction] 35.1 % Low 36.3 - 47.1 % [facility] Hemoglobin (Bld) [Mass/Vol] 10.6 g/dL Low 11.9 - 15.1 g/dL [facility] Immature granulocytes (Bld) [#/Vol] [facility] Immature granulocytes/100 WBC (Bld) 0 % 0 [facility] Interpretation and review of laboratory results Abnormal [facility] Lymphocytes/100 WBC (Bld) 50 % High 24 - 43 % [facility] Lymphocytes/100 WBC (Bld) 3.25 % [facility] MCH (RBC) [Entitic mass] 22.3 pg Low 25.2 - 33.5 pg [facility] MCHC (RBC) [Mass/Vol] 30.2 g/dL 28.4 - 34.8 g/dL [facility] MCV (RBC) [Entitic vol] 73.9 fL Low 82.6 - 102.9 fL [facility] Monocytes/100 WBC (Bld) 7 % 3 - 12 % B on [facility] Monocytes/100 WBC (Bld) 0.48 % B on [facility] Neutrophils/100 WBC (Bld) 41 % 36 - 65 % [facility] Nucleated RBC/100 WBC (Bld) [Ratio] 0.0 % 0.0 per 100 WBC [facility] Platelet mean volume (Bld) [Entitic vol] 9.3 fL 8.1 - 13.5 fL [facility] Platelets (Bld) [#/Vol] 533 10*3/uL High [facility] RBC (Bld) [#/Vol] 4.75 10*6/uL 3.95 - 5.1 1 m/uL [facility] Segmented neutrophils/100 WBC (Bld) 2.65 % [facility] WBC other (Bld) [#/Vol] 6.5 [facility] Abs. Basophil 0.09 k/uL Normal 0.00-0.20 [facility] Comment on above: Performed By: #### C DP, CP, LIP #### [address] [place], [place] [id number] [employer]: Jennifer Freire MD Abs.Imm.Granulocyte <0.03 Normal 0.00-0.30 [facility] Comment on above: Performed By: #### C DP, CP, LIP #### [address] [place] [id number] [employer]: Jennifer Freire MD Abs.Neutrophil (Seg) 2.65 k/uL Normal 1.50-8.10 [facility] Comment on above: Performed By: #### C DP, CP, LIP #### [address] [place] [id number] [employer]: Jennifer Freire MD Basophils/100 WBC (Bld) 1 % Normal 0-2 [facility] Comment on above: Performed By: #### C DP CP, LIP #### [address] [place] [address] [employer]: Jennifer Freire MD Eosinophils (Bld) [#/Vol] 0.06 10*3/uL Normal 0.00-0.44 [facility] Comment on above: Performed By: #### C DP, CP, LIP #### [address] [place], [facility]83 [employer]: Jennifer Freire MD Eosinophils/100 WBC (Bld) 1 % Normal 1-4 [facility] Comment on above: Performed By: #### C DP, CP, LIP #### [address] [place], [place] [id number] [employer]: Jennifer Freire MD Erythrocyte distribution width (RBC) [Ratio] 17.9 % High 11.8-14.4 [facility] Comment on above: Performed By: #### C DP, CP, LIP #### [facility] [address] [place], [place] [address] [employer]: Jennifer Freire MD Hematocrit (Bld) [Volume fraction] 35.1 % Low 36.3-47.1 [facility] Comment on above: Performed By: #### C DP, CP, LIP #### [facility] [address] [place], [place] [address] [employer]: Jennifer Freire MD Hemoglobin (Bld) [Mass/Vol] 10.6 g/dL Low 11.9-15.1 [facility] Comment on above: Performed By: #### C DP, CP, LIP #### [facility] [address] [place], [facility]83 [employer]: Jennifer Freire MD Immature granulocytes/100 WBC (Bld) 0 % Normal 0 [facility] Comment on above: Performed By: #### C DP, CP, LIP #### [address] [place], [facility]83 [employer]: Jennifer Freire MD Lymphocytes (Bld) [#/Vol] 3.25 10*3/uL Normal 1.10-3.70 [facility] Comment on above: Performed By: #### C DP, CP, LIP #### [facility] [address] [place] [address] Dr[place], [facility]83 [employer]: Jennifer Freire MD Lymphocytes/100 WBC (Bld) 50 % High 24-43 [facility] Comment on above: Performed By: #### C DP, CP, LIP #### [facility] [address] [place], [place] [id number] [employer]: Jennifer Freire MD MCH (RBC) [Entitic mass] 22.3 pg Low 25.2-33.5 [facility] Comment on above: Performed By: #### C DP, CP, LIP #### [facility] [address] [place] [address] [employer]: Jennifer Freire MD MCHC (RBC) [Mass/Vol] 30.2 g/dL Normal 28.4-34.8 [facility] Comment on above: Performed By: #### C DP, CP, LIP #### [facility] [address] [place], [place] [address] [employer]: Jennifer Freire MD MCV (RBC) [Entitic vol] 73.9 fL Low 82.6-102.9 [facility] Comment on above: Performed By: #### C DP, CP, LIP #### [address] [place] [address] [employer]: Jennifer Freire MD Monocytes (Bld) [#/Vol] 0.48 10*3/uL Normal 0.10-1.20 [facility] Comment on above: Performed By: #### C DP, CP, LIP #### [address] [place], [place] [address] [employer]: Jennifer Freire MD Monocytes/100 WBC (Bld) 7 % Normal 3-12 [facility] Comment on above: Performed By: #### C DP, CP, LIP #### [address] [place], [place] [address] [employer]: Jennifer Freire MD Neutrophil (Seg) 41 % Normal 36-65 [facility] Comment on above: Performed By: #### C DP, CP, LIP #### [address] [place] [address] [employer]: Jennifer Freire MD NRBC Automated 0.0 per 100 WBC Normal 0.0 [facility] Comment on above: Performed By: #### C DP, CP, LIP #### [address] [place], [place] [address]83 [employer]: Jennifer Freire MD Platelet mean volume (Bld) [Entitic vol] 9.3 fL Normal 8.1-13.5 [facility] Comment on above: Performed By: #### C DP, CP, LIP #### [facility] [address] [place], [place] [id number] [employer]: Jennifer Freire MD Platelets (Bld) [#/Vol] 533 10*3/uL High 138-453 [facility] Comment on above: Performed By: #### C DP, CP, LIP #### [facility] [address] [place] [address] [employer]: Jennifer Freire MD RBC (Bld) [#/Vol] 4.75 10*6/uL Normal 3.95-5.11 [facility] Comment on above: Performed By: #### C MILLIE CP, LIP #### [facility] [address] [place], [place] [id number] [employer]: Jennifer Freire MD WBC (Bld) [#/Vol] 6.5 10*3/uL Normal 3.5-11.3 [facility] Comment on above: Performed By: #### C DP, CP, LIP #### [facility] [address] [place], [place] [id number] [employer]: Jennifer Freire MD CHEMISTRYOrdered By: SYSTEM SYSTEM on 06-27-2024 Albumin [Mass/Vol] 5.0 g/dL Normal 3.3 - 5.0 gm/dL [facility] Albumin/Globulin [Mass ratio] 1.4 {ratio} Normal 1.1 - 2.2 [facility] ALP [Catalytic activity/Vol] 80 [iU]/d Normal 21 - 98 Int._Unit/L [facility] ALT No additional P-5'-P [Catalytic activity/Vol] 15 [iU]/d Normal 6 - 46 Int._Unit/L [facility] Anion gap [Moles/Vol] 14 mmol/L Normal 6 - 16 mEq/L [facility] AST [Catalytic activity/Vol] 18 [iU]/d Normal 5 - 43 Int._Unit/L [facility] Bilirubin [Mass/Vol] 0.6 mg/dL Normal 0.0 - 1 .1 mg/dL [facility] Bilirubin.direct [Mass/Vol] 0.0 mg/dL Normal 0.0 - 0.4 mg/dL [facility] Bilirubin.indirect [Mass or moles/Vol] 0.6 mg/dL Normal 0.1 - 0.9 mg/dL [facility] Calcium [Mass/Vol] 10.3 mg/dL Normal 8.9 - 11. 1 mg/dL [facility] Chloride [Moles/Vol] 106 mmol/L Normal 101 - 1 11 mmol/L [facility] CO2 [Moles/Vol] 23 mmol/L Normal 21 - 31 mmol/L [facility] Creatinine [Mass/Vol] 0.9 mg/dL Normal 0.5 - 1.3 mg/dL [facility] eGFR 84 mL/min/1.73 m2 Normal >=59mL/min / 1.73 m2 [facility] Globulin (S) [Mass/Vol] 3.6 g/dL Normal 1.4 - 4.0 gm/dL [facility] Glucose [Mass/Vol] 108 mg/dL Normal 55 - 199 mg/dL [facility] Lipase [Catalytic activity/Vol] 24 U/L Normal 13 - 58 unit/L [facility] Potassium [Moles/Vol] 3.9 mmol/L Normal 3.5 - 5.3 mmol/L [facility] Protein [Mass/Vol] 8.6 g/dL High 6.0 - 7.8 gm/dL [facility] Sodium [Moles/Vol] 139 mmol/L Normal 135 - 145 mmol/L [facility] Urea nitrogen [Mass/Vol] 7 mg/dL Normal 5 - 21 mg/dL [facility] Urea nitrogen/Creatinine [Mass ratio] 8 mg/mg Low 10 - 20 [facility] CMPon 06-27-2024 Albumin [Mass/Vol] 4.2 g/dL 3.5 - 5.2 g/dL [facility] Albumin/Globulin [Mass ratio] 1.3 {ratio} 1.0 - 2.5 [facility] ALP [Catalytic activity/Vol] 77 U/L 35 - 104 U/L [facility] ALT [Catalytic activity/Vol] 19 U/L 10 - 35 U/L [facility] Anion gap [Moles/Vol] 11 mmol/L 9 - 16 mmol/L [facility] AST [Catalytic activity/Vol] 24 U/L 10 - 35 U/L [facility] Bilirubin [Mass/Vol] mg/dL 0.00 - 1.20 mg/dL [facility] Calcium [Mass/Vol] 9.4 mg/dL 8.6 - 10. 4 mg/dL [facility] Chloride [Moles/Vol] 105 mmol/L 98 - 10 7 mmol/L [facility] CO2 [Moles/Vol] 24 mmol/L 20 - 31 mmol/L [facility] Creatinine [Mass/Vol] 0.7 mg/dL 0.50 - 0.90 mg/dL [facility] Est, Glojanak Carrizalest Rate - PINF [facility] Comment on above: These results are not intended for use [...] following therapy that affects renal tubular secretion. Glucose [Mass/Vol] 79 mg/dL 74 - 99 mg/dL [facility] Potassium [Moles/Vol] 3.7 mmol/L 3.7 - 5.3 mmol/L [facility] Comment on above: Specimen hemolysis h as exceeded the interference as defined by Ji. Value may be falsely increased. Suggest recollection if clinically indicated. Protein [Mass/Vol] 7.4 g/dL 6.6 - 8.7 g/dL [facility] Sodium [Moles/Vol] 140 mmol/L 136 - 145 mmol/L [facility] Urea nitrogen [Mass/Vol] 8 mg/dL 6 - 20 mg/dL [facility] Urea nitrogen/Creatinine [Mass ratio] 11 mg/mg 9 - 20 [facility] Comp Metabolic Profon 2024 Albumin [Mass/Vol] 4.2 g/dL Normal 3.5-5.2 [facility] Comment on above: Performed By: #### C DP, CP, LIP #### [facility] [address] [place], [place] [id number] [employer]: Jennifer Freire MD Albumin/Glob Ratio 1.3 Normal 1.0-2.5 [facility] Comment on above: Performed By: #### C DP, CP, LIP #### [facility] [address] [place] [address] [employer]: Jennifer Freire MD Alkaline Phos 77 U/L Normal 35-104 [facility] Comment on above: Performed By: #### C DP, CP, LIP #### [facility] [address] [place], [place] [phone] [employer]: Jennifer Freire MD ALT [Catalytic activity/Vol] 19 U/L Normal 10-35 [facility] Comment on above: Performed By: #### C DP, CP, LIP #### [facility] [address] [place], [place] 39[address]83 [employer]: Jennifer Freire MD Anion gap [Moles/Vol] 11 mmol/L Normal 9-16 [facility] Comment on above: Performed By: #### C DP, CP, LIP #### [facility] [address] [place], [place] 20[address]83 [employer]: Jennifer Freire MD AST [Catalytic activity/Vol] 24 U/L Normal 10-35 [facility] Comment on above: Performed By: #### C DP, CP, LIP #### [facility] [address] [place], [place] [address]83 [employer]: Jennifer Freire MD Bilirubin [Mass/Vol] mg/dL Normal 0.00-1.20 [facility] Comment on above: Performed By: #### C DP, CP, LIP #### [facility] [address] [place], [place] 8128483 [employer]: Jennifer Freire MD BUN/CRE Ratio 11 Normal 9-20 [facility] Comment on above: Performed By: #### C DP, CP, LIP #### [facility] [address] [place], [place] [phone] [employer]: Jennifer Freire MD Calcium [Mass/Vol] 9.4 mg/dL Normal 8.6-10.4 [facility] Comment on above: Performed By: #### C DP, CP, LIP #### [facility] [address] [place], [place] [phone] [employer]: Jennifer Freire MD Chloride [Moles/Vol] 105 mmol/L Normal 98-107 [facility] Comment on above: Performed By: #### C DP, CP, LIP #### [facility] [address] [place], [place] [phone] [employer]: Jennifer Freire MD CO2 [Moles/Vol] 24 mmol/L Normal 20-31 [facility] Comment on above: Performed By: #### C DP, CP, LIP #### [facility] [address] [place], [place] 1016283 [employer]: Jennifer Freire MD Creatinine [Mass/Vol] 0.7 mg/dL Normal 0.50-0.90 [facility] Comment on above: Performed By: #### C DP, CP, LIP #### [facility] [address] [place] [address] [employer]: Jennifer Freire MD GFR/1.73 sq M.predicted among non-blacks MDRD (S/P/Bld) [Vol rate/Area] mL/min/{1.73_m2} Normal >60 [facility] Comment on above: Result Comment: [...] tubular secretion. Performed By: #### C DP, CP, LIP #### [facility] [address] [place], [place] [id number] [employer]: Jennifer Freire MD Glucose [Mass/Vol] 79 mg/dL Normal 74-99 [facility] Comment on above: Performed By: #### C DP CP, LIP #### [address] [place] [address] [employer]: Jennifer Freire MD Potassium [Moles/Vol] 3.7 mmol/L Normal 3.7-5.3 [facility] Comment on above: Result Comment: Spec imen hemolysis has exceeded the interference as defined by Ji. Value may be falsely increased. Suggest recollection if clinically indicated. Performed By: #### C DP CP, LIP #### [address] [place] [address] [employer]: Jennifer Freire MD Protein [Mass/Vol] 7.4 g/dL Normal 6.6-8.7 [facility] Comment on above: Performed By: #### C DP CP, LIP #### [facility] [address] [place], [place] [address] [employer]: Jennifer Freire MD Sodium [Moles/Vol] 140 mmol/L Normal 136-145 [facility] Comment on above: Performed By: #### C DP, CP, LIP #### [address] [place] [address] [employer]: Jennifer Freire MD Urea nitrogen [Mass/Vol] 8 mg/dL Normal 6-20 [facility] Comment on above: Performed By: #### C DP CP, LIP #### [facility] [address] [place] [address] [employer]: Jennifer Freire MD [facility] 06-27-2024 Tube Collected Plasma Yes Invalid Interpretation Code [facility] Comment on above: Performed By: #### 1 [id number] #### [facility] [address] [place] [address] HEMATOLOGYOrdered By: SYSTEM SYSTEM on 06-27-2024 Basophils/100 WBC (Bld) 1.1 % Normal 0.0 - 2.0 % [facility] Basophils/Leukocytes Auto (Bld) [Pure # fraction] 0.1 E9/L Normal 0.0 - 0.2 E9/L [facility] Eosinophils (Bld) [#/Vol] 0.0 E9/L Normal 0.0 - 0.5 E9/L [facility] Eosinophils/100 WBC (Bld) 0.2 % Normal 0.0 - 8.0 % [facility] Erythrocyte distribution width (RBC) [Ratio] 19.8 % High 10.9 - 14.2 % [facility] Hematocrit (Bld) [Volume fraction] 37.8 % Normal 34.0 - 46.0 % [facility] Hemoglobin (Bld) [Mass/Vol] 12.0 g/dL Normal 12.0 - 16.0 gm/dL [facility] Hypochromia Auto Ql (Bld) PRESENT *NA* (06/27/24 11:07 PM) Invalid Interpretation Code [facility] Lymphocytes (Bld) [#/Vol] 1.7 E9/L Normal 1.0 - 4.0 E9/L [facility] Lymphocytes/100 WBC (Bld) 23.6 % Normal 14.0 - 50.0 % [facility] MCH (RBC) [Entitic mass] 22.8 pg Low 27.0 - 34.0 pg [facility] MCHC (RBC) [Mass/Vol] 31.8 g/dL Normal 31.4 - 36.0 gm/dL [facility] MCV (RBC) [Entitic vol] 71.7 fL Low 80.0 - 100.0 fL [facility] Microcytes Ql (Bld) PRESENT *NA* (06/27/24 11:07 PM) Invalid Interpretation Code [facility] Monocytes (Bld) [#/Vol] 0.3 E9/L Normal 0.2 - 1.0 E9/L [facility] Monocytes/100 WBC (Bld) 3.8 % Low 4.0 - 14.0 % [facility] Neutrophils (Bld) [#/Vol] 5.0 E9/L Normal 2.0 - 7.5 E9/L [facility] Neutrophils/100 WBC (Bld) 71.3 % Normal 36.0 - 75.0 % [facility] Platelet 552.0 E9/L High 150.0 - 500.0 E9/L [facility] Platelet mean volume (Bld) [Entitic vol] 7.5 fL Normal 6.4 - 10.8 fL [facility] RBC (Bld) [#/Vol] 5.3 E12/L Normal 4.3 - 5.9 E12/L [facility] RBC size Nom (Bld) SEE MORPHOLOGY *NA* (06/27/24 11:07 PM) Invalid Interpretation Code Rem[facility] Heme WBC corrected for nucl RBC Auto (Bld) [#/Vol] 7.0 E9/L Normal 4.0 - 11.0 E9/L [facility] Hep Func Panelon 06-27-2024 Albumin [Mass/Vol] 5.0 g/dL Normal 3.3-5.0 [facility] Comment on above: Performed By: #### 2 [id number] #### [facility] [address] [place] [address] Albumin/Globulin (S) [Mass conc ratio] 1.4 Normal 1.1-2.2 [facility] Comment on above: Performed By: #### 2 [id number] #### [facility] [address] [place] [address] ALP [Catalytic activity/Vol] 80 Int._Unit/L Normal 21-98 [facility] Comment on above: Performed By: #### 2 [id number] #### [facility] [address] [place] [address] ALT No additional P-5'-P [Catalytic activity/Vol] 15 Int._Unit/L Normal 6-46 [facility] Comment on above: Performed By: #### 2 [id number] #### [facility] [address] [place] [address] AST [Catalytic activity/Vol] 18 Int._Unit/L Normal 5-43 [facility] Comment on above: Performed By: #### 2 [id number] #### [facility] [address] [place] [address] Bilirubin [Mass/Vol] 0.6 mg/dL Normal 0.0-1.1 [facility] Comment on above: Performed By: #### 2 [id number] #### [facility] [address] [place] [address] Bilirubin.direct [Mass/Vol] 0.0 mg/dL Normal 0.0-0.4 [facility] Comment on above: Performed By: #### 2 [id number] #### [facility] [address] [place] [address] Bilirubin.indirect [Mass or moles/Vol] 0.6 mg/dL Normal 0.1-0.9 [facility] Comment on above: Performed By: #### 2 [id number] #### [facility] [address] [place] [address] Globulin (S) [Mass/Vol] 3.6 g/dL Normal 1.4-4.0 F [facility] Comment on above: Performed By: #### 2 [id number] #### [facility] [address] [place] [address] Protein [Mass/Vol] 8.6 g/dL High 6.0-7.8 [facility] Comment on above: Performed By: #### 2 [id number] #### [facility] [address] [place] [address] Lactic Acidon 06-27-2024 Lactate (BldV) [Moles/Vol] 1.7 mmol/L 0.5 - 2.2 mmol/L [facility] Lactate [Moles/Vol] 1.7 mmol/L Normal 0.5-2.2 [facility] Comment on above: Performed By: #### L ACTIC #### [facility] [address] [place] [address] [employer]: Jennifer Freire MD Lipaseon 06-27-2024 Lipase [Catalytic activity/Vol] 55 U/L 13 - 60 U/L [facility] Lipase [Catalytic activity/Vol] 55 U/L Normal 13-60 [facility] Comment on above: Performed By: #### C DP, CP, LIP #### [facility] [address] [place] [address] [employer]: Jennifer Freire MD Lipase Levelon 9 Lipase [Catalytic activity/Vol] 24 U/L Normal 13-58 [facility] Comment on above: Performed By: #### 2 [id number] #### [facility] [address] [place] [address] Microscopic Urinalysison Bacteria LM Ql (Urine sed) 2+ Abnormal None [facility] Character (U) MICROSCOPIC PERFORME D ON UNSPUN URINE Abnormal NOT REQ. [facility] Character (U) Quantity not sufficient. Abnormal NOT REQ. [facility] Epithelial cells LM.HPF (Urine sed) [#/Area] 2 TO 5 [facility] Interpretation and review of laboratory results Abnormal [facility] Mucus Ql (Urine sed) 2+ Abnormal None [facility] RBC LM.HPF (Urine sed) [#/Area] 0 TO 2 [facility] WBC LM.HPF (Urine sed) [#/Area] 0 TO 2 [facility] No Panel Informationon 06-27 [facility] UA w/Reflex Cultureon 2024 Bilirubin, SemiQt,Ur Negative Normal NEG [facility] Comment on above: Performed By: #### U AX, UMICAO #### [facility] [address] [place] [address] [employer]: Jennifer Freire MD Blood, Urine Negative Normal NEG [facility] Comment on above: Performed By: #### U AX, UMICAO #### [facility] [address] [place], [place] [id number] [employer]: Jennifer Freire MD Clarity (U) Clear Normal CLEAR [facility] Comment on above: Performed By: #### U AX, UMICAO #### [facility] [address] [place], [place] [id number] [employer]: Jennifer Freire MD Color (U) Yellow Normal YEL [facility] Comment on above: Performed By: #### U AX, UMICAO #### [address] [place], [place] [id number] [employer]: Jennifer Freire MD Glucose Ql (U) Negative Normal NEG [facility] Comment on above: Performed By: #### U AX, UMICAO #### [facility] [address] [place] [address] Dr[address] [place], [place] [id number] [employer]: Jennifer Freire MD Ketones Ql (U) Negative Normal NEG [facility] Comment on above: Performed By: #### U AX, UMICAO #### [facility] [address] [place] [address] Dr[address] [place], [place] [id number] [employer]: Jennifer Freire MD Leukocyte esterase Test strip Ql (U) TRACE Abnormal NEG [facility] Comment on above: Performed By: #### U AX, UMICAO #### [facility] [address] [place], [place] [id number] [employer]: Jennifer Freire MD Nitrite,Ur Negative Normal NEG [facility] Comment on above: Performed By: #### U AX, UMICAO #### [facility] [address] [place], [place] [id number] [employer]: Jennifer Freire MD PH,Ur 6.0 Normal 5.0-9.0 [facility] Comment on above: Performed By: #### U AX, UMICAO #### [facility] [address] [place], [place] [id number] [employer]: Jennifer Freire MD Protein Ql (U) Negative Normal NEG [facility] in [facility] Comment on above: Performed By: #### U AX, UMICAO #### [facility] [address] [place], [place] [id number] [employer]: Jennifer Freire MD Spec. Alexis,Ur >1.030 High 1.010-1.020 [facility] Comment on above: Performed By: #### U AX, UMICAO #### [facility] [address] [place], [place] [phone] [employer]: Jennifer Freire MD Urobilinogen,Ur Normal Normal 0.0-1.0 [facility] Comment on above: Performed By: #### U AX, UMICAO #### [facility] [address] [place] [address] Dr. [place], [place] [phone] [employer]: Jennifer Freire MD Urinalysis with Reflex to Cu ltureon 06-27-2024 Bilirubin Ql (U) Negative NEGATIVE [facility] Clarity (U) Clear Clear [facility] Color (U) Yellow Yellow [facility] Glucose Test strip (U) [Mass/Vol] Negative NEGATIVE mg/dL [facility] Hemoglobin Auto test strip Ql (U) Negative NEGATIVE [facility] Interpretation and review of laboratory results Abnormal [facility] Ketones (U) [Mass/Vol] Negative NEGAT NAYE mg/dL [facility] Leukocyte esterase Test strip Ql (U) TRACE Abnormal NEGATIVE [facility] Nitrite Ql (U) Negative NEGATIVE [place] [facility] pH (U) 6.0 [pH] 5.0 - 9.0 [facility] Protein (U) [Mass/Vol] Negative NEGAT NAYE mg/dL [facility] Specific gravity (U) [Rel density] High 1.010 - 1.020 [facility] Urobilinogen Qn (U) Normal 0.0 - 1. 0 EU/dL [facility] Urinalysis,Microon 5 Bacteria 2+ Abnormal NONE [facility] Comment on above: Performed By: #### U AX, UMICAO #### [facility] [address] [place], [place] [phone] [employer]: Jennifer Freire MD Epithelial cells LM Ql (Urine sed) 2 TO 5 Normal 0-25 [facility] Comment on above: Performed By: #### U AX, UMICAO #### [facility] [address] [place] [address] [employer]: Jennifer Freire MD Mucus Strands 2+ Abnormal [facility] Comment on above: Performed By: #### U AX, UMICAO #### [facility] [address] [place] [address] [place] [place], [place] [phone] [employer]: Jennifer Freire MD Other Observations MICROSCOPIC PERFORME D ON UNSPUN URINE Abnormal NREQ [facility] Comment on above: Result Comment: Red tity not sufficient. Performed By: #### U AX, UMICAO #### [facility] [address] [place] [address] Dr. [place], [place] [id number] [employer]: Jennifer Freire MD Urine RBC's 0 TO 2 Normal 0-2 [facility] Comment on above: Performed By: #### U AX, UMICAO #### [facility] [address] [place] [address] [employer]: Jennifer Freire MD Urine WBC's 0 TO 2 Normal 0-5 [facility] Comment on above: Performed By: #### U AX, UMICAO #### [facility] [address] [place], [place] [phone] [employer]: Jennifer Freire MD eGFRon 06-27-2024 eGFR 84 mL/min/1.73 m2 Normal >=59 [facility] Comment on above: Performed By: #### 1 [id number] #### [facility] [address] [address] Coding Summaryon 06-26-2024 Coding Summary HTMLBase 64 SrzjanquRRx8pMv+PGhlYW Q+VE0ZFJRvO24scUMfyG9d V3BWTOiLMhovEQRZXDgSQb QjovRuPT3pqFFlEVFw IC8+RZ4sOQFtCzkuqNNdd5 S5kUA7H43xun6eACkqiOP3 AOWfOsAwpsynb6besPu8ML cuNmluOyBt LOLiuW73XUT7tQ42On10mK CvqGXuh0dzoOa7CyDzQVHp OMI7vNcuZUfip0CoWJNeM6 0bnMTbq5P6 TIBtlNcxzYPlSyOueQB8aY 8fQZpitaeao2cibvcsGnf1 ij81bFFad2F7pGK8T4Boxb D8LHNsgKMf IxskaLUPiD0tqrapb1jbgk sbCdHmBJJlQCr1VKr6BWBm cPfiHzKuOU27LTI6FKWewk TjO8MtBOVu kTcsMsI1g4A8Qd5YI7TCUn khG0JCLXCDERiwzLJ+PC90 qa58A4JnKeuyQsw3JZFvBX L4rTZ5wF7c JNZlFWtdt3V2zHU2Q1Sbjs Hryj3wg4taDPHxBEpqA80g nKAia9N8CLOxdJZ9TQJshM roGhKirI23 Oyc+EKFtvIpgm8LzFcbuw9 igy0cwuWo1FvlrBFYcdaXu aNoqDQN6k2CuKs9hOVMhbK H1eJG3pG3w EbEfYcG3LKuzP213AiYqnL UoAutsN81tJ1GjzDO+PHRy Wtg0NZHvxUztBE4xV5JbUE RpbmctbGVm nNnoFT0fBXGwfuyxHDWykW 5sYRQuW1k3XeVpOvI8XOma A3MqNTMtjvhnHd03yX8jEh FvItU7UUro T7PzmvW4DFVfaHUgNPkvZY I3H89kf6W2OIVrCHYhCBA1 wCX2iY6irGxwpczpmJWvcX sgdmVydGlj DLppZZlbY668ACHirIueGo NvZGluZyBEYXRlOiAgMDEv MTQvMjAyNTwvdGQ+PHRkIH J9pObhPUVq dYKhEQhiGa3peWgvaHuiQF 3bREPixknkPSUcwZ8uJZOx bTXxaDowYZ8mBISgsfeog9 62CwZvSHP6 RRXngRKoI9FbeS7pInNfTK GeXUSeL5QciMYsNXleV492 UVwwOxY1PSCsadEvA9FrZJ FsaWduOiB0 q1T8La0Xw8CkawtxN6EyaX FmUwMoAjffKMi3U9GsEcha dHI+RW45LUGaZA93NCs7SN Q9uQfdNVia XAHsA0XuuF3cNbDyLFKtTU RkOyc+PHRhYmxlIHdpZHRo RWzyNQXdKsDzlXinMJ6hGf 9yZGVyLWNv cBuefNWfGuNje8hfDTMpZM mtCB0jvFrtY1TokSJ7UPCp x7w6Qp69Z66hQ7OfhGU+PG CzrBJ3nJQ3 oC8nWiGwMyX4PByyL175Dq EdcLHoEnaey3pfg4wfnFn4 ZkO1WZXsxmKbeJbpNWW6t1 ElKl91Q48a IHdpZHRoPSIxNSUiIHZhbG iceg7yjI1mGw4+PGNvbCB3 pQX2oJ6jUrNuRlU1JYahJ7 49InRvcCIv Kiabr5dze9osyNp9NaUqIC HawiYbuDmdHIC9n3InDs32 N8TstSaej1DzErb4hn18lW Fmi4Z0pMF8 P3LqAZYysmbgbZHceWruMA 5xPQHzxzeqMRGxxY8pCSDc H1j5DiFcAoG4IDebK7Tbve E7ATPqaIAx JNGgdQBPpG6ruccnw2wtlf drKpGjTSLrTDr9WJs0ALQy dOkkSpFhCPS8CoK1DJL4oM DloY4qmRpm pudpxL4kNst+KBG2tSQrmB XBKT8oJjgneDU+PHRkIHN0 wYbhOYlzGWXijM6iMLZpN4 n4ZoZvRqK5 YTmgB8PxhuL3LXOblZPoEY QhkUEWcY2hvbuni2rnampl MaXxONZdKMe7YUr4IZUknG duOiBsZWZ0 ZuL6BPK6nUTbyA2jgNwrxc hpgT3eTee+QmlydGggRGF0 DNe1Z7QwRau2RRQozHiwSC 0ncGFkZGlu Zk4paSmgfGksAP2xMCHnrw jyi263IgGmt6qbIAYrzHDf EMnlAKV2X01ev9O4EMNePA FrBED4pVX2 vB0zmCcqnouetUKnjIiaft YggHenLLbaXYwmX626KRHy aKlzPcOjVEm9J4RnZkc4FR DhrYbaXK5z bMWwYEhtEd6vpRwieKvkUK 5mYYErkpowd160MkSef6zk IPZcnYKrKUosHXJ1T95cp3 H8QSSlFMBv SES1cUT9vV8meUflsavufO VmdDsgdmVydGljYWwtYWxp V460QZBvwZpzJuZdoTk1L0 SbMcv1MDFe jAhqYL0qgVZmZBpaEo2ikY zbnKwdWW1cHJKtjdsbn974 EnIgj4hjKHYaiJWiXVfbOH V1R02nw7D1 IHHvEIQcZBU0qRJ5uH2fyW lnbjogbGVmdDsgdmVydGlj PGugAPklZ845XGNzkHprEq BhdGllbnQg AFwcBDh0X1TwYtqwwGT+PC 22RYQrIQ50tICdyXLre6bt mIb3HfGkDNHfXOQ2yTwoFQ gxc9DuVTMb B72lbUAlt7Q4WCBleQdztT FqGeYdeMC1gX5xBBwpvgng c2nbxbrxXhvxn9cvpo35pQ 48B20fTEee ZHRoPSIzMCUiIHZhbGlnbj 8mgZ6zYi1+DAFunPD9gIA5 pU7kOCMaGnM9AClqB776Do RvcCIvPjxj o0ffy9lmuJh2SsM9YYQcap OxuRknWYB7h9QxKi09O84r IHdpZHRoPSIyMCUiIHZhbG encl4kgN9n Ii8+USQcvXH1fRU2tO2zMf KvPfA9PVgxF962QpCaaBJm DkycR36eZ7QttXM+PHRyPj k5PHYluAnp HW8hxJZiKBstDh6vFAR4At XfSeQkOOszI0DjHCPqcixq mahsuYL6HTAbALVjbM33Pd 9udDogMTBw wFOCbR8pqwlbx7mrmmxcJu EwFBInEDo5MSg5JTHpaLjl ZwZgTFB3SdK3YLO1pIGtdY 1hbGlnbjog oD3yX5BqVQGqiaxpXl01wZ 0iPhUkVxF5NDnsCep+SE9X QVJELCBTVEFDSUUgTEVFPC 20HY68cMSs i8S2oJE9E9ZsCQEoufqhgf ueqNO4QOXuALRcaW73lABz TEapGk2nx7W2f476CWQaPK RmhV01Sm7f xSicKYJbtWRFtP1bfwrui3 atkpcvPwYuMWTkJYi7EVa6 JVSxeBqlWbTgIEC9MvI0YR C1jAFheW8g jTnzsqpnpG0wKdy+MDcvMz GgMTb2OrryhHD+PHRkIHN0 pOqlRCveJKUfdP6yXORwZ5 c5UwPwLkK6 NBdkD7GjQEQebjgkBv12vM 9eQgQqBvW0XOjgU3MullV0 HULntUUhZIbrEHV2R62ny3 P3DZBaKTFm AQC2eZF6uY5nhSxfsnldxA VmdDsgdmVydGljYWwtYWxp Q638JTKyhEarBlQ7UMsaVL BbIT10MM36 cRYwj6W3lWS1K0BfKTHgcy kpfakptCC0FVRmHACqyY88 xAXuXMdnZu0px6W4p009OT JePAVrtL88 Up5dbJwoPWUemCLDeJ6wgb zpz5iormdmBfExQQBcMKo7 THi8XULtyTwjNcCgEEE2Sn L0XRE7vYGi xN4bcFyekqslvL8eRle+Rk ABHXqUDX00BB41kPJin2T1 fAX7F5EbMRAjlfjoebocnT O7NWJjAAXa eJ19lKCjKBfdGf9ay8Q3n6 72CNFuMGTcvM11Fi6wkXug XAWbhXIYpQ2vklmma9bhbq ogIzAwMDAw BKu1VGp4BJLxoLtpNzNnIL H1KiX2ZWO2lADpvK5ugQuy oqvtiB7aZqs+IN1jkayiuo B2GQ33XN33 X4MqMxzlyFCrpDV+PHRhYm xlIHdpZHRoPScxMDAlJyBz jDuzCR5gXx9aYVVwMKJhdL xhcHNlOiBj f7hbVVCxULaqZB8hkGioK8 BffEN8GERin2p2Dq93R11e U4CogBY+JTFraYC1pYG7cL 7jZcDfRdQ3 UPqeY543SyDbvALnHypcu6 mmf9smqKy9RcAcNFJvpnZp rHjhPPS8i7UsMa13B08fGQ dpZHRoPSIy IRKwHCGncEjyie8sfF7jKo 8+EVCsgFA7yBX0oO0pKmDm HjM9UMjcM559FcFjvWVxPa bpL14yC3Gs dXA+VBXsFvw0BDNqpDvcBU 5yoOMuBAtdHx2uFLJ3TjFc LuQvUKhkQ8RpNKPogtuygu yieQE4FGOg XROltE20Im5uzGfcBv8jUM EcBUZ8DDHlmDWoA1HisC9q MpIkPKJkMQQiZ9WduLZgTS ihU720WTzb HoI9PGOixbQqQ1GfHEPdiP gyVsM0n5F5Ez5EnWmrcOJi UL8qPoNeUPz2K0AwLqv3QL IlcAnkTD0v aCZcEWvdDp4goQfmdXaiBW 5kKUYajhocg599KyCdy5dg PEWmzATkXJuwBGW3T66fp5 M6RJTpZPIa PQD9tZB0rZ7xpYzhqffjkG VmdDsgdmVydGljYWwtYWxp U046GCKcaVkkLyFQQhn4O7 YlXfk5MWEr wOojWA8wnLYwVHqyTq0dnZ lmvMidSU4mXNSnppgqx670 KpOks1scKGRgoBBtOFmlPX J9E74fj8X6 XOUqOUKsLHA1bKQ6yK1yuO lnbjogbGVmdDsgdmVydGlj GJrsEWbrV640PWCljYikJm 5AAht8S9Xb Eur0LDLfoQvlPI4kpKHhTE enWk1ssPhnkRwjMZ7cKAFj udgry008YqFkc2sfJJUksG QgVGltZXM7 W44el7H1ZSBlGNMpNAZ3vE J0oA0kaQiarvimoSElyYiy lxBiwKsyOSvkJLcmL140XY RvcDsnPlBh eWVyOjwvdGQ+EQ18kb64U5 ZeXhfnBgy6PUMoNIY6hKD4 aD8qUOPmZPudl0W9sKV0H3 LmypBein7n b2x (more content not included)... Normal [facility] CRPon 06-25-2024 CRP [Mass/Vol] 0.5 mg/dL Normal <=1.9 [facility] Comment on above: Performed By: #### 2 [id number] #### [facility] [address] [place] [address] CT Abdomen/Pelvis w/o Contra ston 06-25-2024 CT Abdomen/Pelvis w/o Contrast Exam Date/Time: 06/24/2024 23:48 EST Reason for Exam: Pain Report IMPRESSION: QUESTION MILD EARLY UNCOMPLICATED ACUTE APPENDICITIS. CLINICAL HISTORY: Right lower quadrant pain. COMPARISON: 09/26/2023. TECHNIQUE: Spiral unenhanced images were obtained of the abdomen and pelvis without contrast. All CT scans at this facility use dose modulation, iterative reconstruction, and/or weight based dosing when appropriate to reduce radiation dose to as low as reasonably achievable. Unless otherwise stated, incidental findings identified in this report do not require routine follow-up imaging. FINDINGS: Liver: No enlargement, significant fatty infiltration, suspicious mass or lesion. Biliary: The gallbladder has been removed. No abnormal biliary ductal dilatation. Pancreas: No mass, organized fluid collection, or abnormal pancreatic ductal dilatation. Spleen: Unremarkable. Adrenals: Minimal right adrenal calcification again noted. Otherwise, unremarkable. Kidneys: No significant urinary tract calculi, hydronephrosis, or suspicious mass. GI tract: The appendix measures approximately 7 mm in caliber with question of mild wall thickening and minimal surrounding ill-defined periappendiceal inflammation, new from 09/26/2023. No other abnormal dilation or wall thickening elsewhere. Lymph nodes: No pathologically enlarged lymph nodes. Vasculature: No aneurysm. Mesentery/peritoneum/r etroperitoneum: No ascites, organized fluid collection, inflammatory changes, or suspicious mass. Pelvis: The urinary bladder is unremarkable. Previous hysterectomy. Bones/soft tissue: No acute osseous findings identified. Lower thorax: Noncontributory. Ordering Provider: Ritesh Heath FINAL REPORT Dictated: 06/25/2024 6:43 am Harvey Leslie MD Signed (Electronic Signature): 06/25/2024 6:43 am Signed by: Harvey Leslie MD Transcribed by: MILLIE Technologist: GUANAKO Technical Comments Contrast: None Rectal Contrast Given? No Oral contrast amount in ml's: 0 Normal [facility] ED Clinical Summaryon 2024 ED Clinical Summary ED Clinical Summary [place] [id number] ED Clinical Summary Person Information [facility] Age: 39 Years : 1985 Sex: Female Language: Citizen Of [place] PCP: NONE, XXXX Marital Status: MRN: [id number] Visit Id: Visit Reason: Abdominal pain; ABDOMINAL PAIN Speciality: Acuity: 3 Enc Type: Emergency Med Service: Emergency Arrival: 06/24/2024 19:23:55 Discharge: 06/25/2024 02:50:08 LOS: 000 07:27 Checkin: 06/24/2024 19:23:55 Checkout: 06/25/2024 02:50:08 Dispo Type: Home (Routine DC) EVENTS: Event Name Event Status Request Date/Time Start Date/Time Complete Date/Time Arrive Complete 06/24/2024 19:23:55 06/24/2024 19:23:55 06/24/2024 19:23:55 Document Home Meds Request 06/24/2024 19:23:55 Triage Complete 06/24/2024 19:23:55 06/24/2024 19:33:16 06/24/2024 19:33:16 Registration Complete 06/24/2024 19:28:16 06/24/2024 19:28:16 06/24/2024 19:28:16 Reg Complete Request 06/24/2024 19:28:16 Reg Bed Request Complete 06/24/2024 19:28:16 06/24/2024 19:28:16 06/24/2024 19:28:16 Pending Labs Complete 06/24/2024 20:12:13 06/24/2024 23:51:18 Lab Complete 06/24/2024 20:12:13 06/24/2024 23:47:55 Urine Collect Complete 06/24/2024 20:12:13 06/24/2024 23:47:55 Pending Labs Complete 06/24/2024 20:51:24 06/24/2024 20:51:24 06/24/2024 21:18:22 Lab Complete 06/24/2024 20:51:24 06/24/2024 20:51:24 06/24/2024 21:18:22 Bed Assign Complete 06/24/2024 22:41:52 06/24/2024 22:41:52 06/24/2024 22:41:52 Dr Exam Complete 06/24/2024 22:41:52 06/24/2024 22:42:46 06/24/2024 22:42:46 RN Exam Complete 06/24/2024 22:41:52 06/24/2024 22:50:20 06/24/2024 22:50:20 Registration Request 06/24/2024 22:42:46 Meds Admin Cancel 06/24/2024 22:49:18 06/24/2024 23:35:03 CT Cancel 06/24/2024 22:49:18 06/24/2024 23:16:31 06/24/2024 23:35:03 Meds Admin Complete 06/24/2024 23:35:03 06/24/2024 23:41:27 CT Complete 06/24/2024 23:35:03 06/24/2024 23:47:39 06/24/2024 23:48:01 Meds Admin Complete 06/25/2024 00:45:20 06/25/2024 00:55:29 Pending Labs Complete 06/25/2024 01:57:17 06/25/2024 01:57:17 06/25/2024 02:02:51 Pending Labs Complete 06/25/2024 02:02:43 06/25/2024 02:02:43 06/25/2024 02:26:37 Lab Complete 06/25/2024 02:02:43 06/25/2024 02:02:43 06/25/2024 02:26:37 Meds Admin Complete 06/25/2024 02:38:00 06/25/2024 02:45:44 Discharge Complete 06/25/2024 02:40:07 06/25/2024 02:50:14 06/25/2024 02:50:14 Transfer Complete 06/25/2024 02:50:14 06/25/2024 02:50:14 06/25/2024 02:50:14 ADDRESS: [address] [place] [id number] PHYS DOC NOTES: MEDICAL INFORMATION: Prescriptions Given: New Medications [id number], [address], [place] [id number], [phone] acetaminophen-oxycodon e (Percocet 5 mg-325 mg oral tablet) 1 Tablets By Mouth every 8 hours for 3 Days. Refills: 0. Medications to Continue with No Changes Other Medications alprazolam (alprazolam 0.25 mg Tab) budesonide-formoterol (Symbicort 80/4.5 inhalation aerosol with adapter) citalopram (citalopram 20 mg Tab) By Mouth every day. diflunisal (diflunisal 500 mg Tab) 1 Tablets By Mouth every 12 hours. Refills: 0. PATIENT EDUCATION INFORMATION: Instructions: Abdominal Pain, Adult Follow up: With: Address: When: Jacy CHIRINOS [facility] [place] [address] Business (1) In 3 days 06/28/2024 DIAGNOSIS: Abdominal pain, acute Normal [facility] ED Note-Physicianon 06-25-19 ED Note-Physician ED Note-Physician Basic Information Time Seen: Ritesh Heath DO 06/24/2024 22:42 Chief Complaint right lower abd pain starting this am. denies nausea or vomiting. denies fever. denies pain with urination History of Present Illness HPI: patient is a 39-year-old female with past medical history of endometriosis but status post hysterectomy who presents the ED for right lower abdominal pain. Patient states that this pain started yesterday and has been mostly constant since that time. She states there is a constant dull component but a intermittent sharp component as well. She denies any nausea vomiting or diarrhea. She denies any urinary symptoms. She states that approximately 1 month ago she had been sent to [facility] and they found a mass in her right lower abdomen. At that time they told her that it could be ovarian rebound syndrome but they cannot rule out malignancy or infection. They discharged her and told her to follow-up with her OB but she has been unable to get in until next month. She did try taking oral Toradol as well as Tylenol with minimal relief. ROS: Pertinent review of systems conducted and is negative except as noted above. Physical exam: General: nontoxic appearing and in no distress HEENT: Mucous membranes moist Neuro: awake and alert Neck: supple, trachea midline Card: Heart regular rate and rhythm no murmur Resp: Lungs clear to auscultation no wheeze or rhonchi Abd: Soft and nondistended. Right lower quadrant tenderness without rebound or guarding. No CVA tenderness. Ext: No gross deformity or edema Physical Exam Vitals & Measurements T: 36.5 ???C(Oral) HR: 147(Peripheral) RR: 20 BP: 118/74 SpO2: 100% HT: 165 cm WT: 89.9 kg BMI: 33.02 Medical Decision Making MEDICAL DECISION MAKING Number and Complexity of Problems Differential Diagnosis: [] [facility] Data External documents reviewed: N/A My EKG interpretation: Noted in chart if applicable My CT interpretation: N/A My X-ray interpretation: Noted in chart if applicable My Ultrasound interpretation: N/A Decision rules/scores evaluated: N/A Discussed with: N/A Treatment and Disposition ED Course: Patient is nontoxic-appearing and distress. She does have focal right lower quadrant tenderness on exam. She is afebrile but is tachycardic. She reports she has a history of tachycardia with pain. We will give her a dose of pain medication and obtain blood work and urinalysis. Blood work shows mild anemia. Sed rate is borderline but CRP is within normal limits. Urinalysis shows no signs of acute UTI. CT of the abdomen pelvis shows 7 mm diameter appendix without periappendiceal inflammation, possibly normal variation. No hydronephrosis or urinary tract stones. Cholecystectomy. Right adrenal calcification. Hysterectomy. On reevaluation the patient does feel more comfortable after the medication. We discussed the results of her lab work and imaging. At this time she was comfortable with the plan of discharge with a short prescription of as needed pain medication and she will call both her primary care physician as well as her [employer] for the next available follow-up as an outpatient. Discussed return precautions. Patient was discharged in stable condition. Shared decision making: As above Code status: N/A Assessment/Plan Abdominal pain, acute (R10.9: Unspecified abdominal pain) Ordered: acetaminophen-oxycodon e, 1 tab(s), Oral, q8hr for 3 day(s), 9 tab(s), Refill(s) 0, [facility]/pharmacy #[id number], 165, cm, 06/24/24 19:33:00 EST, Height/Length Dosing, 89.9, kg, 06/24/24 19:33:00 EST, Weight Dosing Orders: acetaminophen-oxycodon e, 1 [...] Beta Hcg Qual UA with Cult Rflx Medications Administered Given HYDROmorphone 1 mg/mL injectable solution, 1 mg, IntraMuscular HYDROmorphone 1 mg/mL injectable solution, 0.5 mg, IntraMuscular Disposition Plan Discharge Prescription List Prescriptions Percocet 5 mg-325 mg oral tablet, 1 tab(s), Oral, q8hr Follow-up With When Contact Information Javymarylou CANDIS In 3 days 06/28/2024 EST [address] [place] [address]- Business (1) Additional Instructions: Patient Education Abdominal Pain, Adult Problem List/Past Medical History Ongoing No chronic problems Historical Endometriosis Ovarian cyst Procedure/Surgical History Hysterectomy. Medications Inpatient HYDROmorphone 1 mg/mL injec (more content not included)... Normal [facility] Comment on above: Result Comment: Elec tronically Signed By: Ritesh Heath DO\.br\Date and Time Signed: 06/25/24 02:44 EST ED Patient Summaryon 025 ED Patient Summary ED Patient Summary [address] [address] Patient Discharge Instructions Person Information Name: ANTONIA NOYOLA Age: 39 Years Arrival Date: 06/24/2024 19:23:55 Discharge Diagnosis: Abdominal pain, acute Primary Care Physician: NONE, XXXX Provider Information Primary Provider: Ritesh Heath DO Advanced Jewelry Designer:Shazia The exam and treatment you received in the Emergency Department were for an urgent problem and are not intended as complete care. It is important that you follow up with a doctor, nurse practitioner, or physician???s assistant professor of nursing for ongoing care. If your symptoms become worse or you do not improve as expected and you are unable to reach your usual health care provider, you should return to the Emergency Department. We are available 24 hours a day. ANTONIA NOYOLA has been given the following list of patient education materials, prescriptions and follow-up instructions: Follow-up Instructions: With: Address: When: [address] [place], [place] [id number] [facility] (1) In 3 days 06/28/2024 In the event that this physician does not participate in your insurance network, please consult with your insurance company to find a nearby participating provider. Patient Education Materials: Abdominal Pain, Adult A MESSAGE TO ALL PATIENTS REGARDING OPIOIDS PRESCRIPTION OPIOIDS: WHAT YOU NEED TO KNOW Prescription opioids can be used to help relieve tjtegmvs-vp-vclyxx pain and are often prescribed following a [...] as well, even when taken as directed: ??? Tolerance???meaning you might need to take more of the medication for the same pain relief ??? Physical dependence???meaning you have symptoms of withdrawal when a medication is stopped ??? Increased sensitivity to pain ??? Constipation ??? Nausea, vomiting, and dry mouth ??? Sleepiness and dizziness ??? Confusion ??? Depression ??? Low levels of testosterone that can result in lower sex drive, energy, and strength ??? Itching and sweating RISKS ARE GREATER WITH: ??? History of drug misuse, substance use disorder, or overdose ??? Mental health conditions (such as depression or anxiety) ??? Sleep apnea ??? Older age (65 years and older) ??? Avoid alcohol while taking prescription opioids. Also, unless specifically advised by your health care provider, medications to avoid include: ??? Benzodiazepines (such as Xanax or Valium) ??? Muscle relaxants (such as Soma or Flexeril) ??? Hypnotics (such as Ambien or Lunesta) ??? Other prescription opioids KNOW YOUR OPTIONS Talk to your health care provider about ways to manage your pain that don???t involve prescription opioids. Some of these options may actually work better and have fewer risks and side effects. Options may include: ??? Pain relievers such as acetaminophen, ibuprofen, and naproxen ??? Some medication that are also used for depression or seizures ??? Physical therapy and exercise ??? Cognitive behavioral therapy, a psychological, goal-directed approach, in which patients learn how to modify physical, behavioral, and emotional triggers of pain and stress. IF YOU ARE PRESCRIBED OPIOIDS FOR PAIN: ??? Never take opioids in greater amounts or more often than prescribed. ??? Follow up with your primary health care provider. o Work together to create a plan on how to manage your pain. o Talk about ways to help manage your pain that don???t involve prescription opioids. o Talk about any and all concerns and side effects. ??? Help prevent misuse and abuse o Never sell or share prescription opioids. o Never use another person???s prescription opioids. ??? Store prescription opioids in a secure place and out of reach of others (this may include visitors, children, friends, and family). ??? Safely dispose of unused prescription opioids: Find your community drug take-back program or your pharmacy mail-back program, or flush them down the toilet, following guidance from the Food and Drug Administration (www.fda.gov/Drugs/Res ourcesForYou). ??? Visit www.cdc.gov/drugoverdo se to learn about the risks of opioids abuse and overdose. ??? If you believe you may be struggling with addiction, tell your health child day care center worker and ask for guidance or call S (more content not included)... Normal [facility] Sed Rate Automatedon 025 ESR (Bld) [Velocity] 35 mm/h High 0-34 [facility] Comment on above: Performed By: #### 1 [id number] #### [facility] [address] [place] [address] BMPon 06-24-2024 Anion gap [Moles/Vol] 13 mmol/L Normal 6-16 [facility] Comment on above: Performed By: #### 2 [id number] #### [facility] [address] [place] [address] Calcium [Mass/Vol] 9.9 mg/dL Normal 8.9-11.1 [facility] Comment on above: Performed By: #### 2 [id number] #### [facility] [address] [place] [address] Chloride [Moles/Vol] 107 mmol/L Normal 101-111 [facility] Comment on above: Performed By: #### 2 [id number] #### [facility] [address] [place] [address] CO2 [Moles/Vol] 23 mmol/L Normal 21-31 [facility] Comment on above: Performed By: #### 2 [id number] #### [facility] [address] [place] [address] Creatinine [Mass/Vol] 0.7 mg/dL Normal 0.5-1.3 [facility] Comment on above: Performed By: #### 2 [id number] #### [facility] [address] [place] [address] Glucose [Mass/Vol] 116 mg/dL Normal 55-199 [facility] Comment on above: Performed By: #### 2 [id number] #### [facility] [address] [place] [address] Potassium [Moles/Vol] 3.9 mmol/L Normal 3.5-5.3 [facility] Comment on above: Performed By: #### 2 [id number] #### [facility] [address] [place] [address] Sodium [Moles/Vol] 139 mmol/L Normal 135-145 [facility] Comment on above: Performed By: #### 2 [id number] #### [facility] [address] [place] [address] Urea nitrogen [Mass/Vol] 6 mg/dL Normal 5-21 [facility] Comment on above: Performed By: #### 2 [id number] #### [facility] [address] [place] [address] Urea nitrogen/Creatinine [Mass ratio] 9 No Units Low 10-20 [facility] Comment on above: Performed By: #### 2 [id number] #### [facility] [address] [place] [address] CBC w/ Auto Diffon 5 Basophils/100 WBC (Bld) 1.2 % Normal 0.0-2.0 [facility] Comment on above: Performed By: #### 2 [id number] #### [facility] [address] [place] [address] Basophils/Leukocytes Auto (Bld) [Pure # fraction] 0.0 E9/L Normal 0.0-0.2 [facility] Comment on above: Performed By: #### 2 [id number] #### [facility] [address] [place] [address] Eosinophils (Bld) [#/Vol] 0.0 E9/L Normal 0.0-0.5 [facility] Comment on above: Performed By: #### 2 [id number] #### [facility] [address] [place] [address] Eosinophils/100 WBC (Bld) 0.4 % Normal 0.0-8.0 [facility] Comment on above: Performed By: #### 2 [id number] #### [facility] [address] [place] [address] Erythrocyte distribution width (RBC) [Ratio] 19.4 % High 10.9-14.2 [facility] Comment on above: Performed By: #### 2 [id number] #### [facility] [address] [place] [address] Hematocrit (Bld) [Volume fraction] 37.3 % Normal 34.0-46.0 [facility] Comment on above: Performed By: #### 2 [id number] #### [facility] [address] [place] [address] Hemoglobin (Bld) [Mass/Vol] 11.8 g/dL Low 12.0-16.0 [facility] Comment on above: Performed By: #### 2 [id number] #### [facility] [address] [place] [address] Hypochromia Auto Ql (Bld) PRESENT Invalid Interpretation Code [facility] Comment on above: Performed By: #### 2 [id number] #### [facility] [address] [place] [address] Lymphocytes (Bld) [#/Vol] 1.3 E9/L Normal 1.0-4.0 [facility] Comment on above: Performed By: #### 2 [id number] #### [facility] [address] [place] [address] Lymphocytes/100 WBC (Bld) 30.4 % Normal 14.0-50.0 [facility] Comment on above: Performed By: #### 2 [id number] #### [facility] [address] [place] [address] MCH (RBC) [Entitic mass] 22.8 pg Low 27.0-34.0 [facility] Comment on above: Performed By: #### 2 [id number] #### [facility] [address] [place] [address] MCHC (RBC) [Mass/Vol] 31.6 g/dL Normal 31.4-36.0 [facility] Comment on above: Performed By: #### 2 [id number] #### [facility] [address] [place] [address] MCV (RBC) [Entitic vol] 72.2 fL Low 80.0-100.0 [facility] Comment on above: Performed By: #### 2 [id number] #### [facility] [address] [place] [address] Microcytes Ql (Bld) PRESENT Invalid Interpretation Code [facility] Comment on above: Performed By: #### 2 [id number] #### [facility] [address] [place] [address] Monocytes (Bld) [#/Vol] 0.2 E9/L Normal 0.2-1.0 [facility] Comment on above: Performed By: #### 2 [id number] #### [facility] [address] [place] [address] Neutrophils (Bld) [#/Vol] 2.6 E9/L Normal 2.0-7.5 [facility] Comment on above: Performed By: #### 2 [id number] #### [facility] [address] [place] [address] Neutrophils/100 WBC (Bld) 62.2 % Normal 36.0-75.0 [facility] Comment on above: Performed By: #### 2 [id number] #### [facility] [address] [place] [address] Platelet mean volume (Bld) [Entitic vol] 7.6 fL Normal 6.4-10.8 [facility] Comment on above: Performed By: #### 2 [id number] #### [facility] [address] [place] [address] Platelets (Bld) [#/Vol] 563.0 E9/L High 150.0-500.0 [facility] Comment on above: Performed By: #### 2 [id number] #### [facility] [address] [place] [address] RBC (Bld) [#/Vol] 5.2 E12/L Normal 4.3-5.9 [facility] Comment on above: Performed By: #### 2 [id number] #### [facility] [address] [place] [address] RBC size Nom (Bld) SEE MORPHOLOGY Invalid Interpretation Code [facility] Comment on above: Performed By: #### 2 [id number] #### [facility] [address] [place] [address] WBC corrected for nucl RBC Auto (Bld) [#/Vol] 4.2 E9/L Normal 4.0-11.0 [facility] Comment on above: Performed By: #### 2 [id number] #### [facility] [address] [place] [address] CHEMISTRYOrdered By: SYSTEM SYSTEM on 06-24-2024 Albumin [...] 11.0 E9/L Remisol Heme HEMATOLOGYOrdered By: Lissette Segovia on 06-24-2024 ESR (Bld) [Velocity] 35 mm/h High 0 - 34 mm/hr [facility] [place] HemeAutoSS Hep Func Panelon 06-24-2024 Albumin [Mass/Vol] 4.6 g/dL Normal 3.3-5.0 [facility] Comment on above: Performed By: #### 2 [id number] #### [facility] [address] [place] [address] Albumin/Globulin (S) [Mass conc ratio] 1.1 Normal 1.1-2.2 [facility] Comment on above: Performed By: #### 2 [id number] #### [facility] [address] [place] [address] ALP [Catalytic activity/Vol] 79 Int._Unit/L Normal 21-98 [facility] Comment on above: Performed By: #### 2 [id number] #### [facility] [address] [place] [address] ALT No additional P-5'-P [Catalytic activity/Vol] 17 Int._Unit/L Normal 6-46 [facility] Comment on above: Performed By: #### 2 [id number] #### [facility] [address] [place] [address] AST [Catalytic activity/Vol] 21 Int._Unit/L Normal 5-43 [facility] Comment on above: Performed By: #### 2 [id number] #### [facility] [address] [place] [address] Bilirubin [Mass/Vol] 0.3 mg/dL Normal 0.0-1.1 [facility] Comment on above: Performed By: #### 2 [id number] #### [facility] [address] [place] [address] Bilirubin.direct [Mass/Vol] 0.0 mg/dL Normal 0.0-0.4 [facility] Comment on above: Performed By: #### 2 [id number] #### [facility] [address] [place] [address] Bilirubin.indirect [Mass or moles/Vol] 0.3 mg/dL Normal 0.1-0.9 [facility] Comment on above: Performed By: #### 2 [id number] #### [facility] [address] [place] [address] Globulin (S) [Mass/Vol] 4.0 g/dL Normal 1.4-4.0 [facility] Comment on above: Performed By: #### 2 [id number] #### [facility] [address] [place] [address] Protein [Mass/Vol] 8.6 g/dL High 6.0-7.8 [facility] Comment on above: Performed By: #### 2 [id number] #### [facility] [address] [place] [address] Lipase Levelon 06-24-2024 Lipase [Catalytic activity/Vol] 29 U/L Normal 13-58 [facility] Comment on above: Performed By: #### 2 [id number] #### [facility] [address] [place] [address] SEROLOGYOrdered By: Levi rajan on 06-24-2024 HCG.beta subunit (U) [Moles/Vol] Negative Normal [facility] [place] [place] Man Sero U BetaHcg Qualon 06-24-2024 HCG.beta subunit (U) [Moles/Vol] Negative Normal [facility] Comment on above: Performed By: #### 2 [id number] #### [facility] [address] [place] [address] UA with Cult Rflxon 06-24-19 25 Bilirubin Ql (U) Negative Normal Negative [facility] Comment on above: Performed By: #### 4 [id number] #### [facility] [address] [place] [address] Clarity (U) Clear Normal Clear [facility] Comment on above: Performed By: #### 4 [id number] #### [facility] [address] [place] [address] Color (U) Colorless Abnormal Yellow [facility] Comment on above: Result Comment: Micr oscopic readings are only performed on those samples that meet specific criteria set forth by [facility]. Performed By: #### 4 [id number] #### [facility] [address] [place] [address] Glucose Ql (U) Negative Normal Negative [facility] Comment on above: Performed By: #### 4 [id number] #### [facility] [address] [place] [address] Hemoglobin Auto test strip (U) [Mass/Vol] Negative Normal Negative [facility] Comment on above: Performed By: #### 4 [id number] #### [facility] [address] [place] [address] Ketones Auto test strip Ql (U) Negative Normal Negative [facility] Comment on above: Performed By: #### 4 [id number] #### [facility] [address] [place] [address] Leukocyte esterase Auto test strip Ql (U) Negative Normal Negative [facility] Comment on above: Performed By: #### 4 [id number] #### [facility] [address] [place] [address] Nitrite Auto test strip Ql (U) Negative Normal Negative [facility] Comment on above: Performed By: #### 4 [id number] #### [facility] [address] [place] [address] pH (U) 7.0 [pH] Invalid Interpretation Code 5.0-9.0 [facility] Comment on above: Performed By: #### 4 [id number] #### [facility] [address] [place], [place] [address] Protein Ql (U) Negative Normal Negative [facility] Comment on above: Performed By: #### 4 [id number] #### [facility] [address] [place] [id number] Specific gravity (U) [Rel density] 1.003 Invalid Interpretation Code 1.005-1.030 [facility] Comment on above: Performed By: #### 4 [id number] #### [facility] [address] [place] [address] Urobilinogen (U) [Mass/Vol] Negative Normal Negative [facility] Comment on above: Performed By: #### 4 [id number] #### [facility] [address] [place] [address] Type of Urine collection method Clean Catch Normal [facility] Comment on above: Performed By: #### 4 [id number] #### [facility] [address] [place] [address] URINALYSISOrdered By: SYSTEM SYSTEM on 06-24-2024 Bilirubin Ql (U) Negative Normal Negativemg/ dL [facility] [place] UA Auto SS Clarity (U) Clear (06/24/24 11:36 PM) Normal Clear [facility] [place] [place] UA Auto SS Color (U) Colorless 1 *ABN* (06/24/24 11:36 PM) Invalid Interpretation Code Yellow [facility] [place] UA Auto SS Comment on above: Interpretive Data: M icroscopic readings are only performed on those samples that meet specific criteria set forth by [facility]. Glucose Ql (U) Negative Normal Negativemg/ [...] Normal Negativemg/ dL [facility]A Auto SS pH (U) 7.0 *NA* (06/24/24 11:36 PM) Invalid Interpretation Code 5.0 - 9.0 [facility] UA Auto SS Protein Ql (U) Negative Normal Negativemg/ dL [facility] UA Auto SS Specific gravity (U) [Rel density] 1.003 *NA* (06/24/24 11:36 PM) Invalid Interpretation Code 1.005 - 1.030 [facility] UA Auto SS Urobilinogen (U) [Mass/Vol] Negative Normal Negativemg/ dL [facility] UA Auto SS URINALYSISOrdered By: Ritesh bishop on 06-24-2024 UA Spec Desc Clean Catch (06/24/24 11:36 PM) Normal [facility] [place] UA Auto SS Work Phone: eGFRon 06-24-2024 eGFR 114 mL/min/1.73 m2 Normal >=59 [facility] Comment on above: Performed By: #### 1 [id number] #### [facility] [address] [place] [address] Coding Summaryon 06-23-2024 Coding Summary HTMLBase 64 DzggnpttQFe7xHh+PGhlYW Q+YL5LUCInZ36etOQeaB1x J6DTKXjEKnfpJBHMECfJDw JlxzKpCM3dnINdLWIo IC8+ED6nSHUvJqxbmRFzs2 Y3mIT7V66mxx7tZVudqHK5 JBAcRaPqfidtv1vwmAi6KU cuNmluOyBt XXXxsW30UEI3yM76Am34vW FvjERfg4wotZc1KfLhLRFy LYK0gEfeNCesn6UkHUQhB1 8yaMFna3Q1 MWQmuUoqsSMbOcTvuZA5hW 1dUNkykcknp5jtgzlnGjy0 wr92tQQry3S5hWT7C8Rpem Z1JJSxlRFp NdqgbKCMdL7wcimlv6wxfu dqHtJkUOYfRQk4SZj7DKBs mLwuTwGtHJ45FTV0XHApxn WeR0LtNPXd vFruHtX2n4F1Xw9VD0TIFe lwZ3KKNXSGHMtflEL+PC90 qu62Y9TuCcqdBkg6IZYbRI P3xXH7vB1o WTEvLWups0D0yKS9O3Yhzh Qwst0nc8zaDQZlYLltR10q yEXst4I9HRQjwBN3KLGmoN tsWdLwoH02 Oyc+KVQemZmgd6SgDqaum4 zgs7ibjPo8KakcNVPplgXe lNndLBE9w1JnDd0uLYOqhS Y3cNO7dF0q EmCdOnJ6UZhqG036VlNlnX QfSqhgK01fT3HchQE+PHRy Vmt4BZSisAhiHO6qX4AwGG RpbmctbGVm uMmfHP6xRASlhozmXYUmgC 3oTEXrT3q9UbFrYaU2DOfq B5OjUOVjlovqLy30kH1qJb XpGzG1KZlj T4TzmvV0QQCtgNEpLXseDE J9P05zu0P0XDNpIZTkEYT8 sHP9zN0xeXhnaovmfYKmzJ sgdmVydGlj BYlqXNrdJ729HXKmyAypNs NvZGluZyBEYXRlOiAgMDEv MTEvMjAyNTwvdGQ+PHRkIH M3bJaoQAPh cZQtUXdrRs7tuSckyZaoXU 1dSQPpwwbfQUZeaH4pMVOs iFMseUppIW0zZIKvngjfq3 32KoSnNFR8 UZJzjVVvW3WbgL1qHgJbSH UsWMVhW6UfxFEaBHasT021 ZDckKmR6BNKfupMoN8BhDO FsaWduOiB0 l0O5Uq3Pk2VgbzdjH8ZglP ZqJjFxEzdyLKg3W7LiBaya dHI+OI95UPPxHY74QBv8NI W0bOneRZiv NCDfJ7JnrS2pCnVkVJHxKQ RkOyc+PHRhYmxlIHdpZHRo XIknNJVtGkGxrZxrNN1hRr 9yZGVyLWNv uXlpsNFaAxKsu1lvNUQoAJ jhZC0ywTerH4VdmHI2OHWt z8x1Tx50Q85eN7IrpIA+PG WuzZE1hYL5 zX1qFzHgGcV0ZSmlN423Sv IzxKZcIhaxd8wxs9avxHe4 BoB9ASLaybAkkIhxBUQ8y2 MbKz71Y79a IHdpZHRoPSIxNSUiIHZhbG giwh3wkR2rUz3+PGNvbCB3 dWJ1zL5wMsHjNcF2OElrJ0 49InRvcCIv Cnryw1fdq2femBz4PjDgJB XhtbFnxXjhJFX8s1KkDp57 W1MykLvfc3WoTql0nw86fN Hzf0N6oBP9 L2MqXCMkiswpmCXzeMefIZ 5nMTNgniqrONPcoJ9tCDZc F0q3BgAfHgR7TUcqD9Mqwp X7UPRpvXVz GHIwrRKTgR5eeplyd3wznw gsEuVjOIQiEAf2KLy5URCu wByoKuBxWUM9HeV2PRT0qH AhrG4wzHvh udumzY4vDoj+HYL3nJRctN IQCC4uYefjyMG+PHRkIHN0 qWsdSMzeBUXbaW8qSYPiC1 u4ZbVtIwC3 FSceE7ZddiM6HXThrARxEU OzgVVTnN3sorgow7iaiwal DpAaSLXeZXm4WQk6AQCzkG duOiBsZWZ0 WfQ8SQX8yNVrfC1iyYuvhb vplP2vVdr+QmlydGggRGF0 ZEz1C4TkRox1UALsyKawZQ 0ncGFkZGlu Np2ctKxxvDaeCT9kHIPlja sjz050BwAcp6tjAZIlkQJo QZtsGSM5J93ju4C6UFBvGZ BhOEV6mLW3 kL5fwEbzlajdkRLtaMuimp WvbPkeRPfkSCemM309GZLr yXiwYcBjYKf0X0HqOic9UD YfaIrsMY3z hTYlVTmlBq2fsWwioQgcNV 1qRHFrcnyba397EqMgk0qb ILUexJNfDKotKOM3T47mp4 L8VZZzEYTn ONR8vZG2rD6vgDetqgxhfY VmdDsgdmVydGljYWwtYWxp Z703QVVgaXtzIpLioVl1G1 KxNth9TOQa cYboBN4bmOSlEQroXa6hwP ofhUxaSF1aBFGqfcbtj652 SoNda1emOYUacVIlUBmsJS S4L75kh4T9 JAEzEGFhBWI5dJB5wG8ffN lnbjogbGVmdDsgdmVydGlj AQzsPWgcH780OJZwzBvqNj BhdGllbnQg ZMjrTHt5I2ZtQnfxvHU+PC 76JWKhQL78oNIjtCUjy9oh oQv5PjGgREKvNFG2uDntGY oxi4XgYPBw N53ggZVyc8Z8MGLpnAwthQ FdRtIttQC2dF8rJEovqqyy q0onrysdJkcdm7rste74yT 08W38qTKgc ZHRoPSIzMCUiIHZhbGlnbj 5ajD3lKt1+JQVzxNE8wHH2 vU1fHXOxJpC1VButD623Ai RvcCIvPjxj l2zza8kvqSa0QvC3YEUnuw FavFijQXS8k7SmNd22U04j IHdpZHRoPSIyMCUiIHZhbG stfe9drW6a Ii8+DDMedYJ6vAL0gB9iCi JhZsM2SOdwP402HrTypSLq MwcqP33wS0XpkBL+PHRyPj c5JDFfpBbv QY1wzIMaRKyvLt2iNYH3Uc GhUoTgZTjxS9SoBALchmwn qvlabHX2DKCgNKIueA05Pd 9udDogMTBw aDNSuY6gtnkan3ypyvswTa EpEXOkRNt1FQb5IBZpgWwy DhKaDAU1VoM1LPA6cLDpiV 1hbGlnbjog rJ5wK1HmQFTxmykcLp85yE 6oYrPmYcT2MXopLzy+SE9X QVJELCBTVEFDSUUgTEVFPC 91QP20dSNt f4U5kSI9N4RtQQXeyyttmm mpeIK6EEUcXQIhqP03fJRk KNtrSs6mw9V1u982AHDcYG QrnV50Dw0h qUzcMWXsfFOZsR9zbykcm6 xhmcpyIjTpCGSgEDh5BOz3 HABxbMrhZsRoVDQ0JoJ3VE U5tXDsnB1u qFfycnigmX6zWzu+MDcvMz MvOGn9HgqrcEH+PHRkIHN0 gVfbDHpuEMPohO8qREDrU0 b4LiEkIsM1 VFmcS1GnYDOlwgiqHn89dW 6sIdGaXoI1MJyjB5NyddE3 SRBypVNsSYcfFJB0G61ub5 D5SANgCEVu HWT3qEU0bM0heTtaqnijjR VmdDsgdmVydGljYWwtYWxp W557NWXrkPbdPnX8OKkzQT HvCK85HC02 dAYyw3C3pBH0F7WlCKRfst qlodaxhMR4GYYkHFGiyF31 xOStGQbeZm9jv6K0d172FC TjVMAiqC77 Ql6xgYboJWOvbXWTeJ7ito lkv4zjuapzSsUmGOEsIQz4 WWl5LMWrzSknZrFlABD6Ip N5DLY6lLTb aY1cmAkxvdrwjJ2gSqe+Rk AXNElASW72HK08pTOot5G6 aAC1I0XqQQAlrthtjowwwV Q9LGJrCSYw eJ69dORaZXwbSg2tf7G6a3 43UNLtAMUwlL77Ii5gkEzo BBUviWWUrC7tveish8ctmr ogIzAwMDAw PJn5EXx2OPMtlMzhQgVfMW J6OnD9QGV1aPNkoO9rqUov wendmX2tFja+DR9bvwgkgm O2YQ80MX33 F3NmPavtsBUwcUA+PHRhYm xlIHdpZHRoPScxMDAlJyBz yKuyFQ6pWv6hQADoHSBhnK xhcHNlOiBj w3vlJTOoNEtdVN5ivLvsG0 CmiJX2AEVds5m0Lc17O06a O8LalHU+VXIxnMZ7qMV1dD 7uDfXuQlI7 BYwyZ014SuNycTJoTaqcj3 gdk9wfsDc1OvDpIEIiavRe qXfuIJD5c3YlXh39Q88wYA dpZHRoPSIy MWMdHUCvvDiylx9wmQ3hNm 8+OFZwxIS8lVA9tU9cBhFo AuB2JMeiR801XmDkbQWtPv obL97wF5Of dXA+XZRuBls0IQVvxKsgBH 4gnUKtRIpbDg9gBDR3OcOy NlVbROwvZ0ViVQYdeczhtl xukZH4RRTm EARqmE84Na5ngDitWq6sQW NeYDJ3UUWlxKGkM7CudF6f SjZtUYJhMWTnW7WgqKCoSL wfG265MDsi RyQ0IYUundXjR7RxDJBosM xsFzO2p7N2Li7CvRyuvXQy XW9sEbOeADu8N8UvWnu5EE HihNlrOU9x uROrADnaYn6ryBkoyPxhVE 4oDICinoksi688DeBxj9ze XLRuwUVmWJnxYFB7I05ki0 T6XHHpTDEi DZA9yFY9fL6auFfqjbfrrN VmdDsgdmVydGljYWwtYWxp J720QOSpcGbeAlUBSdq7P3 PnMvj9NPUq hHtbLX2bhIZaEFghKh2wyW bjyHtsMA2zGXFrcxzpg521 WeYte5nuKTFpcVUvRVizGC K6K27jt0I1 KWEgIQMkJMF6vGW5tL2wpW lnbjogbGVmdDsgdmVydGlj XLhgWBjoT199UZGqfHteXd 4GXyv8Q8Tu Qoo2FBDuyNpfBN8lmXSdMW icZz5oqAuxqKodXK6xFBVq oelsi398DyZuq0nwNZYmnJ QgVGltZXM7 I40ij6N5HUAgSZLyKTN4bR O3mP2btScqcmovwNIdlZji mvYjwZpfLEkeFBumF930HD RvcDsnPlBh eWVyOjwvdGQ+UE89iz99C0 UdXnpeHpf0FCYqHAT6nBL3 fN7mQWCiAIajk5J2tKG5Y7 AejjFikh6z b2x (more content not included)... [facility] Coding Summary HTMLBase 64 YjmueybqNXc0nNf+PGhlYW Q+LV4EMFEwC76bsGYikE9r N8FWENiFEmetQTDNKEdKKx LnerEuZQ7skPQtUTXd IC8+WE8mRFTrIacwqEBny3 W0qOT0G93lzb7aILkobYP2 KADiDyTuoaviq9xolFu7ED cuNmluOyBt SURzbJ58EJU1hE35Tc66sG UxgLDvz1eveEj2NtGhODZj OIL8lXpeRHqrn6WrOMWyC3 4zrAIya7H4 BDRmgBjmpUFfNoSyjZW6fS 1zOMbdsuxsd6iyqgtvWsc7 le39qWBni5W2tOM9D0Dcgn Y5YLKwtGSr FpeshUFSzS3xbyktt4lvji guGgTpDFMiPIq5JGq6KXBx lDqnKaUzPL80QBP9YIGtlz ZeZ8RpISMd kQvkYoJ5i7G3Ep2RN1PONu mgG7SWPLKZHPiysAX+PC90 dg00E0EgGxhbJsw7HSEfLX S2jJI6wV6y ZOSgHNaew7A8mHR6Q6Coso Nxdc2du0uxPCXlKTzvM49c jVZad7L4FEOhrNC8MGCfiX rvHoXgbB79 Oyc+KPPpkBhzb9GmTfafj6 xya6zhyAc0MrguDWUhrdYr gQfiIXX5d3PgEo4cSWOonK S2vWN1eE2l KjQjQuB9EZomD459IvYdbW MpCnotW24bK9KfoAV+PHRy Uci1EEZhuFfcLW1rH3PrME RpbmctbGVm nMvtIM5gWDUafsdhDRQfvQ 4eSGOiM5z7SmTwFtK6HHql Q6BsNSOhxyqbFy10fU4oTu QbDiI8ZWnu T7JeyxT9NLLriZYpPIirQF H0I25vu7Z8JVYqQCHdLNW5 rCR7rR8swZpqvlaapLImkB sgdmVydGlj HVpeUCpnJ201CCWlxYppQl NvZGluZyBEYXRlOiAgMDEv MTEvMjAyNTwvdGQ+PHRkIH O3gGxfLAJf pPKrSXwlQz2hoMzcjEmiBS 3oLSKdtwjxSOQlzH2cUQOu iFLsoVdbFV5ySPWrfjzui4 71PtMgNNW7 FBRsnTSoU6LuwW3bGrXxFI NnQEXxL6TpnZUzLYzhK444 CYneZpP3HQKwolVwN6SwRK FsaWduOiB0 w1U7Uz6Ay5YrhajxM2OcxG DcOyIePhvwAVt9G3QrKfkv dHI+OV27TFSwHZ60VLa4LN G3mVxpZYfb HQAuF0CbsJ6qBfOrUXLaOY RkOyc+PHRhYmxlIHdpZHRo ILxySMEfZdYrbPbaLI6kZd 9yZGVyLWNv mAkrqJObImLpj2cpUOMnYU lhKR0rkTwvF5FkyBO6DEXp d2i7Sq93N57lR1VapCM+PG MwdLS5pAF2 eA9tRqJgRhR6XAdbE300Ov NhqBHeEbbts4bea8oifRm4 KwQ4SAWoevDjvUilXNB7t5 UoXx03H30f IHdpZHRoPSIxNSUiIHZhbG vkwh1qvN4tOm0+PGNvbCB3 wJE3jO7bCuRsVfY4VFlsA2 49InRvcCIv Yhtkl7hgd0vorAb5GaDyBV NspxYumGrpDXI9z2AyWv98 N3UkpApkn9EmHwv1nb52aD Ejf5C6pXE0 X2ChSUIpbhjqfOFfhFhbIX 0eMYErupdmEUBsiJ9kXZGl F7m4QkEwHgL6QScwD0Fevs S7SYZasDVv VKYygQLOcR9ycbgel1izme nfSgNrBNJxULq0MRp5NMDn yOokRbDiJHQ8IsQ9FOX5pS QbuJ9ckPzz segktX7iRvo+MGG1iUNtuN THRR6xDmrmoRN+PHRkIHN0 kFwiKSgbYRLmoL6qEXQvC8 w0NrAjQxZ7 YXxmQ1TfghP4QWPjdRYnPK SakBHRmX7ceauwc2eqvxxt EaXeWBJkRHc1IVi2SDKxxS duOiBsZWZ0 KrN8ULD4bKRuvO2csRcdkn zuuX6qOdy+QmlydGggRGF0 YMw7B6PoNrq8QLVbdAzlAN 0ncGFkZGlu Hp2mcHtkjKmrLN1yXILpdr nse500AaXzt5rmHOJwaUJl DJcpVUG9E74go4N7BXRrQW GkRZL7yVK2 nK3qcDosdhtmoIPriFhxik WpjDrzWOaeMCtoS244DJSm hBkxZyRlYEf9L3EtKtb5HR SyaXkoWE8c sWFfXNqoXj1ayRniqUvoSW 4uJMDddpylh075ZyWkv3ze BFCjpWSxLZlzVFO3U53ad5 V3YACxZYPf QFI0fMW0kZ7niAglbunivE VmdDsgdmVydGljYWwtYWxp Y180DRLquDbcGzLyaZb2N1 OfZvz5VOQo qGvrHH4unLYnEUdlUr6xaD veuLvgOG7kMLVmkdjfh767 GeWmr3mpZYKewXRuLUfkBX S8H81ms0K2 XGWwZLIqAPL7uYF7iB6dkM lnbjogbGVmdDsgdmVydGlj SFzuMGzdA990DGCjdIbxHh BhdGllbnQg NQzeCCy5Q7VzBmyudCU+PC 83GMRlIX20lVDbdWZad6yb sBe4NoMoNJHvGWI7yEcmCD xil8JqPFIc K11tgSWcb0Q1WHGhwDkbgQ YlNuUywOR2iL5wXBjudoqy b7kgbydlRyjrt0kfsq02bF 07N94tFEac ZHRoPSIzMCUiIHZhbGlnbj 5hoG4nBc1+CBRhcFN2rFW5 zH7wZUBrZsW5PKxaB998Tz RvcCIvPjxj z6spx0kbgFh4KeE0GPPqok PsfPswCFP2f1PxNv46K41o IHdpZHRoPSIyMCUiIHZhbG ixva6yaQ3a Ii8+ADIbcOC8zFD7sB0mRu LkJvN4AKyhV450TnKkkTTm VcdhV90qL3NcnUH+PHRyPj r1SRIckCbn YQ6tgWFgXKpeBu3rREA3On BtCgUaBFzhH7NuAMCoiroo zdeiyJV8UXPiCKVrgO49Wu 9udDogMTBw aSJVgC3avfgle9xwrpnlXa CbSHXxOPt7YDa6LYDnkYdi OyOcBTL5KtP7RLS7oHGkbK 1hbGlnbjog tW8jG6IeTUXodjwxOj28kN 8aDqXsIyV0XDbpSvd+SE9X QVJELCBTVEFDSUUgTEVFPC 03LH49dINs c1S7rEI9F3BbRERageyual eniEK5BNYfHYUcmZ14rJWu GMvuKe8gq1Z8z101BFIuIE EnzR32Hf2i uEtcIIMlhPUXqD5elsktj3 fhdzgxXbYyRAOuWTk6JSn3 DBWieZqfPeUyHVX8FkZ6IY U3qFUumZ5b eIeefuwxvO5vYsa+MDcvMz UdHVu3TmfnlWW+PHRkIHN0 bGcnDAmbAYEleZ9mPQRnT3 z4FtLiBlU0 AYvpI8BtQDHkbczvIu32cS 8zWoXzXqD5FKegT0KmvpF6 ZLWqcBItDWxbZEU3J27gh4 G3PMPrKFWs WJJ2aCE9eQ7mxVrfwkimqE VmdDsgdmVydGljYWwtYWxp M859ZBNqgNdqJvG0DDciYB FsMD44WE19 rLAcq6R6nWT2L1BuHZSzjc yibcndoWR6DCIoFQUilL58 gRUsCDewBq1nm2Q6b704XM SeISGssL58 Ds5dhJhoWFPvyKXKtE4bxj pdk9xoriwsEhEfTPVzXMk5 DAw8RJBnwSbvPeCxPUB9Kc L1TJZ0tHLl gJ3nhJsjbqfwdF8vDqz+Rk CVBWcPZM70SN06lXJvw4U1 vUL3T1GhOITyvrkgxdamcY G6USEyYTPg nW60pVMyHKnuMc2nm2H8d5 06VFXmHSWeoU38Nx7ibAkk LXMlrZBBiF5ukgxin4cjhx ogIzAwMDAw LMa3HHw7NCNfvAdrRrYvYQ G9UzD4JCP2vPHukE0agFff ptejwT9sVig+MX6lqvnite K3LN92HN85 X7SjRetdlKBxnMU+PHRhYm xlIHdpZHRoPScxMDAlJyBz xSnaMH2hNl2aOEEmPDFzuG xhcHNlOiBj i8rwJHWvQYvqJC4atEudW1 NtqJC0FFHlp7a3At57D99w F4KtwRV+DWLjxUS6wIO3vA 5uHkMvUpY8 EAeuZ491JoDpuDQjFngma1 koc1wchBo8AbJvGIJpuhPt nHvrQWK4j6IgMf74I45pSQ dpZHRoPSIy CSEuDUEgyEtrmq2hiO4mLj 8+CCDczGR3vXE4cF6pRkSk SuU4ZTtqX464JkZvqVVgEu eqP11nL8Mn dXA+JIAxKvf6SKYvvCtjGZ 8tiPNxPJsbKc0jISF8SpKo JlGtGPndC5EjWTJjcmifdf lbdSK7HGJj FNCwjO91Wg3urAxiAf0zOW MdCBY7DHHehUGoR8AoyV1q MrEwHRQzFIXwR1UnxELbHX fjL869MUxe SiJ2OCUzxiQqD4IgUUClpB yrBuG5z5P0Ih2CrMypnPCv QF0vCqOqIRb8C7CuMok6OP TdiVtwYV0f sGZdLAtdOs4tjTttoHbaZT 3cDCZvwppxf651OhMof3dy QIFirRWdZCbyZAZ5E58gj6 U1AOUrMISz MEK2sSM7uC4viXlwhmojxW VmdDsgdmVydGljYWwtYWxp P557AHAesJriArTPHyt7P2 MvBht6CJCn yPhhKX6scZGxMVneGz5tlS bwyXwnIR6qJQQhgxudn959 LcKdu3faAYGvgBQeCJmbIE U1Q35ku9L5 EFZiPPOmDSQ7sSV4gV2ftR lnbjogbGVmdDsgdmVydGlj ARskQXdwE168ONCpvWotXt 7FAhz3A6Ke Qsd5NNSciLtvYR6qrXZwLA ijMu7jgSlmhTqtHS3aNHZa vcvtf408MmKky0qbJNBrgH QgVGltZXM7 N75nt4E1VPNrCEBmGJD6wI W9hB0znKnccyjyfVNtlXcr iwZszAqfNBxcLCqoH146UY RvcDsnPlBh eWVyOjwvdGQ+RO91ki65N3 YsDbxnKxl1KIGjNIL7gAH9 rG6iCDFeAXnky5U0uTR4T6 XzhgYqwm9q b2x (more content not included)... [facility] Release of Informationon Release of Information [id number]#[address] [place] [address] Consent Formson 06-12-2024 Consent Forms [id number]#1.[address] [place] [address] .Auto Diff 06-11-2024 Auto Hendry % 6 % Normal -12 [facility] Comment on above: Performed By: #### 7 [id number], [id number], [id number] #### [facility] (DEFAULT) [address] [place] [address] 90014 Baso Abs# 0.0 x10 Normal 0.0-0.2 [facility] Comment on above: Performed By: #### 7 [id number], [id number], [id number] #### [facility] (DEFAULT) [address] [place] [address] 07566 Basophils/100 WBC (Bld) 0.7 % Normal 0.2-2.0 [facility] Comment on above: Performed By: #### 7 [id number], [id number], [id number] #### [facility] (DEFAULT) [address] [place] [address] 92541 Eos Abs# 0.0 x10 Normal 0.0-0.4 [facility] Comment on above: Performed By: #### 7 [id number], [id number], [id number] #### [facility] (DEFAULT) [address] [place] [address] 12051 Eosinophils/100 WBC (Bld) 0.8 % Low 0.9-4.0 [facility] Comment on above: Performed By: #### 7 [id number], [id number], [id number] #### [facility] (DEFAULT) [address] [place] [address] 61756 Lymph Abs# 2.0 x10 Normal 1.3-2.9 [facility] Comment on above: Performed By: #### 7 [id number], [id number], [id number] #### [facility] (DEFAULT) [address] [place] [address] 23621 Lymphocytes/100 WBC (Bld) 37 % Normal 14-48 [facility] Comment on above: Performed By: #### 7 [id number], [id number], [id number] #### [facility] (DEFAULT) [address] [place] [address] 12260 Hendry Abs# 0.3 x10 Normal 0.0-0.8 [facility] Comment on above: Performed By: #### 7 [id number], [id number], [id number] #### [facility] (DEFAULT) [address] [place] [address] Neut Abs# 3.1 x10 Normal 1.5-9.2 [facility] Comment on above: Performed By: #### 7 [id number], [id number], [id number] #### [facility] (DEFAULT) [address] [place] [address] Neutrophils/100 WBC (Bld) 56 % Normal 44-88 [facility] Comment on above: Performed By: #### 7 [id number], [id number], [id number] #### [facility] (DEFAULT) [address] [place] [address] CBC w/ Auto Diffon 4 Man Diff? Auto Normal [facility] Comment on above: Performed By: #### 7 469019, [id number], [id number] #### [facility] (DEFAULT) [address] [place] [address] Erythrocyte distribution width (RBC) [Ratio] 20.0 % High 11.5-15.0 [facility] Comment on above: Performed By: #### 7 [id number], [id number], [id number] #### [facility] (DEFAULT) [address] [place] [address] Hematocrit (Bld) [Volume fraction] 35.5 % Normal 33.7-40.4 [facility] Comment on above: Performed By: #### 7 423170, [id number], [id number] #### [facility] (DEFAULT) [address] [place] [address] Hemoglobin (Bld) [Mass/Vol] 11.3 g/dL Normal 11.3-15.9 [facility] Comment on above: Performed By: #### 7 021017, [id number], [id number] #### [facility] (DEFAULT) [address] [place] [address] MCH (RBC) [Entitic mass] 23 pg Low 24-34 [facility] Comment on above: Performed By: #### 7 [id number], [id number], [id number] #### [facility] (DEFAULT) [address] [place] [address] MCHC (RBC) [Mass/Vol] 32 g/dL Normal 26-37 [facility] Comment on above: Performed By: #### 7 [id number], [id number], [id number] #### [facility] (DEFAULT) [address] [place] [address] MCV (RBC) [Entitic vol] 73 fL Low 81-100 [facility] Comment on above: Performed By: #### 7 [id number], [id number], [id number] #### [facility] (DEFAULT) [address] [place] [address] Platelet 432 x10 High 138-427 [facility] Comment on above: Performed By: #### 7 029476, [id number], [id number] #### [facility] (DEFAULT) [address] [place] [address] Platelet mean volume (Bld) [Entitic vol] 7.8 fL Normal 6.3-10.2 [facility] Comment on above: Performed By: #### 7 [id number], [id number], [id number] #### [facility] (DEFAULT) [address] [place] [address] RBC 4.87 x10 Normal 3.70-5.30 [facility] Comment on above: Performed By: #### 7 [id number], [id number], [id number] #### [facility] (DEFAULT) [address] [place] [address] WBC 5.5 x10 Normal 3.5-10.5 [facility] Comment on above: Performed By: #### 7 [id number], [id number], [id number] #### [facility] (DEFAULT) [address] [place] [address] CMP Standardon 06-11-2024 eGFR Non AA >60 Invalid Interpretation Code [facility] Comment on above: Performed By: #### 7 [id number], [id number], [id number] ####[facility] (DEFAULT)[address] [place] [address] eGFR AA >60 Invalid Interpretation Code [facility] Comment on above: Performed By: #### 7 507509, [id number], [id number] ####[facility] (DEFAULT)[address] [place] [address] 42855 Albumin [Mass/Vol] 4.2 g/dL Normal 3.5-5.0 [facility] Comment on above: Performed By: #### 7 [id number], [id number], [id number] ####[facility] (DEFAULT)[address] [place] [address] 97652 Albumin/Globulin [Mass ratio] 1.0 {ratio} Low 1.4-2.6 [facility] Comment on above: Performed By: #### 7 802581, [id number], [id number] ####[facility] (DEFAULT)[address] [place] [address] 81458 Alk Phos 61 IU/L Normal 32-91 [facility] Comment on above: Performed By: #### 7 845044, [id number], [id number] ####[facility] (DEFAULT)[address] [place] [address] 81873 ALT [Catalytic activity/Vol] 28.0 U/L Normal 14.0-54.0 [facility] Comment on above: Performed By: #### 7 528117, [id number], [id number] ####[facility] (DEFAULT)[address] [place] [address] 66056 Anion gap [Moles/Vol] 12.4 mmol/L Normal 5.0-19.0 [facility] Comment on above: Performed By: #### 7 455281, [id number], [id number] ####[facility] (DEFAULT)[address] [place] [address] 32763 AST [Catalytic activity/Vol] 23 U/L Normal 15-41 [facility] Comment on above: Performed By: #### 7 426417, [id number], [id number] ####[facility] (DEFAULT)[address] [place] [address] 48178 Bili Total 0.8 mg/dL Normal 0.3-1.2 [facility] Comment on above: Performed By: #### 7 622336, [id number], [id number] ####[facility] (DEFAULT)[address] [place] [address] 83195 Calcium [Mass/Vol] 9.1 mg/dL Normal 8.9-10.3 [facility] Comment on above: Performed By: #### 7 014993, [id number], [id number] ####[facility] (DEFAULT)[address] [place] [address] 00824 Chloride [Moles/Vol] 106 mmol/L Normal 101-[address] [facility] Comment on above: Performed By: #### 7 341095, [id number], [id number] ####[facility] (DEFAULT)[address] [place] [address] 66952 CO2 [Moles/Vol] 23 mmol/L Normal 21-32 [facility] Comment on above: Performed By: #### 7 266251, [id number], [id number] ####[facility] (DEFAULT)[address] [place] [address] 68801 Creatinine [Mass/Vol] 0.78 mg/dL Normal 0.60-1.30 [facility] Comment on above: Performed By: #### 7 098684, [id number], [id number] ####[facility] (DEFAULT)[address] [place] [address] 41490 Globulin (S) [Mass/Vol] 4.1 g/dL Normal 1.5-4.3 [facility] Comment on above: Performed By: #### 7 023462, [id number], [id number] ####[facility] (DEFAULT)[address] [place] [address] 96283 Glucose [Mass/Vol] 104.0 mg/dL Normal 74.0-118.0 [facility] Comment on above: Performed By: #### 7 [id number], [id number], [id number] ####[facility] (DEFAULT)[address] [place] [address] 97495 Osmolality 274 mOsm/L Invalid Interpretation Code [facility] Comment on above: Performed By: #### 7 [id number], [id number], [id number] ####[facility] (DEFAULT)[address] [place] [address] 77647 Potassium [Moles/Vol] 3.4 mmol/L Low 3.6-5.1 [facility] Comment on above: Performed By: #### 7 154516, [id number], [id number] ####[facility] (DEFAULT)[address] [place] [address] 90838 Protein [Mass/Vol] 8.3 g/dL High 6.5-8.1 [facility] Comment on above: Performed By: #### 7 047192, [id number], [id number] ####[facility] (DEFAULT)[address] [place] [address] Sodium [Moles/Vol] 138.0 mmol/L Normal 136.0-144.0 [facility] Comment on above: Performed By: #### 7 679367, [id number], [id number] ####[facility] (DEFAULT)[address] [place] [address] 37024 Urea nitrogen [Mass/Vol] 8 mg/dL Normal 8-26 [facility] Comment on above: Performed By: #### 7 574289, [id number], [id number] ####[facility] (DEFAULT)[address] [place] [address] Urea nitrogen/Creatinine [Mass ratio] 10.2 mg/mg Normal 4.6-16.2 [facility] Comment on above: Performed By: #### 7 [id number], [id number], [id number] ####[facility] (DEFAULT)[address] [place] [address] 85848 Breakpoint Chem Normal [facility] Comment on above: Performed By: #### 7 [id number], [id number] ####[facility] (DEFAULT)[address] [place] [address] 14731 ED Clinical Summaryon 2023 ED Clinical Summary [facility] - Emergency Department [address] [place] [address] 24872 ED Clinical Summary PERSON INFORMATION Name: ANTONIA NOYOLA Age: 39 Years Sex: FEMALE : 1985 MRN: Acct#: Visit Reason: Abdominal pain; RT SIDE ABD PAIN Arrival: 06/11/2024 15:13:20 Discharge: 06/11/2024 18:32:00 LOS: 000 03:19 Check In: 06/11/2024 15:13:20 Checkout:06/11/2024 18:32:00 Address: [address] [place] [address] PCP: Provider, None PROVIDER INFORMATION Provider Role Assigned Unassigned Letty RN, Celestina Leos ED Nurse 06/11/2024 15:15:36 Lenka Padilla EXTRUSION ENGINEER ED PA 06/11/2024 15:17:46 Eran Hill MD [...] Home PATIENT EDUCATION INFORMATION Instructions: Ovarian Cyst, [id number] Follow-Up: With: Address: When: Provider, None [address] [place] [address] Within 3 to 5 days Comments: Please call Dr. Wilson office and see if you can be seen sooner than June 18. CT scan shows a possible right ovarian cyst. This needs further evaluation from an CHIEF INVESTIGATOR specialist. Continue taking medication as needed for pain. May take Tylenol 1000 mg every 6 hours as needed for pain. May take ibuprofen 600 mg every 8 hours as needed for pain. DIAGNOSIS: 1:Other ovarian cyst, right side Patient Understands: Yes - Patient/family/caregiv er verbalizes understanding of instructions given Comment: Normal [facility] ED Patient Summaryon 024 ED Patient Summary [facility] - Emergency Department [address] [place], [place] [id number] PATIENT DISCHARGE INSTRUCTIONS Patient Information Name: ANTONIA NOYOLA Age: 39 Years Date of : 1985 [facility]: [id number] Reason For Visit: Abdominal pain; RT SIDE ABD PAIN Arrival Time: 06/11/2024 15:13:20 Primary Care Physician: Mana, Shazia Attending Physician: Eran Hill MD Comment: Visit Diagnosis: Diagnoses This Visit Abdominal pain ([id number]) Other ovarian cyst, right side (N83.291) The Pharmacy at [facility] is open Tuesday through Tuesday from 9A [...] alcohol and/or drug addiction problems; contact the [facility] 03/01 Crisis Hotline -text 4hope to 741741. If you received any narcotics, sedation, or [...] legal documents With: Address: When: Provider, Shazia [address] [place] [address] Within 3 to 5 days Comments: Please call Dr. Wilson office and see if you can be seen sooner than June 18. CT scan shows a possible right ovarian cyst. This needs further evaluation from an CHIEF INVESTIGATOR specialist. Continue taking medication as needed for pain. May take Tylenol 1000 mg every 6 hours as needed for pain. May take ibuprofen 600 mg every 8 hours as needed for pain. Medication Information: The exam and treatment you received today in the [facility] Emergency Department were for an urgent problem and are not intended as complete care. It is important for you to follow up with a doctor, nurse practitioner, or physician?s assistant professor of nursing for ongoing care. If your symptoms become [...] so we can reach you if necessary. [facility] Emergency Department has provided you with a complete list of medications post discharge. Please inform your print shop assistant/provider of your visit and for further instruction [...] ovarian syndrom (more content not included)... Normal [facility] UA w Culture if Ind Standard on 06-11-2024 Breakpoint UA [facility] Comment on above: Performed By: #### 1 [id number] ####[facility] (DEFAULT)[address] [place] [address] 07150 Color (U) Yellow [facility] Comment on above: Performed By: #### 1 [id number] ####[facility] (DEFAULT)[address] [place] [address] Culture? Not Indicated Invalid Interpretation Code [facility] Comment on above: Result Comment: Resu lt created by rule GL_MAGR_ADD_UA_CULT1 Performed By: #### 1 [id number] ####[facility] (DEFAULT)[address] [place] [address] 65015 Glucose (U) [Mass/Vol] Negative [facility] Comment on above: Performed By: #### 1 [id number] ####[facility] (DEFAULT)[address] [place] [address] 55917 Ketones Ql (U) Negative [facility] Comment on above: Performed By: #### 1 [id number] ####[facility] (DEFAULT)[address] [place] [address] 76706 Micro? Not Indicated Invalid Interpretation Code [facility] Comment on above: Result Comment: Resu lt created by rule GL_MAGR_ADD_UA_MICRO Performed By: #### 1 [id number] ####[facility] (DEFAULT)[address] [place] [address] 25888 UA Bilirubin Negative Normal [facility] Comment on above: Performed By: #### 1 [id number] ####[facility] (DEFAULT)[address] [place] [address] 90751 UA Blood Negative Normal NEGATIVE [facility] Comment on above: Performed By: #### 1 [id number] ####[facility] (DEFAULT)[address] [place] [address] 97455 UA Clarity CLEAR Normal CLEAR [facility] Comment on above: Performed By: #### 1 [id number] ####[facility] (DEFAULT)[address] [place] [address] 93743 UA Leuk Est Negative Normal NEGATIVE [facility] Comment on above: Performed By: #### 1 [id number] ####[facility] (DEFAULT)[address] [place] [address] 95983 UA Nitrite Negative Normal NEGATIVE [facility] Comment on above: Performed By: #### 1 [id number] ####[facility] (DEFAULT)[address] [place] [address] 31070 UA pH 6.5 Normal 5-8 [facility] Comment on above: Performed By: #### 1 [id number] ####[facility] (DEFAULT)[address] [place] [address] 04817 UA Protein Negative Normal NEGATIVE [facility] Comment on above: Performed By: #### 1 [id number] ####[facility] (DEFAULT)[address] [place] [address] 92133 UA Spec Grav 1.010 Normal 1.001-1.035 [facility] Comment on above: Performed By: #### 1 [id number] ####[facility] (DEFAULT)[address] [place] [address] UA Urobilinogen 0.2 mg/dL Normal 0.2-1.0 [facility] Comment on above: Performed By: #### 1 [id number] ####[facility] (DEFAULT)[address] [place] [address] Urine Source Clean Catch Normal [facility] Comment on above: Performed By: #### 1 [id number] ####[facility] (DEFAULT)[address] [place] [address] US Pelvis Non-OB Completeon 06-11-2024 US Pelvis [...] Rina Rushing MD 06/11/24 6:46 pm Technologist: [facility] US Transvaginalon 06-11-2024 US Transvaginal EXAM: [...] Rina Rushing MD 06/11/24 6:46 pm Technologist: [facility] CBC AND AUTO DIFFon 06-10-20 ABSOLUTE BASOPHIL 0.1 X10E9/L Normal 0.0-0.2 [facility] Comment on above: Performed By: #### C BCA, CMP, 40050-5 #### [facility] ([id number]) [address], [address] [place] [address] ABSOLUTE NEUTROPHIL 3.8 X10E9/L Normal 1.5-6.6 [facility] Comment on above: Performed By: #### C BCA, CMP, 96961-8 #### [facility] ([id number]) [address], [address] [place] [address] Basophils/100 WBC (Bld) 0.9 % Normal [facility] Comment on above: Performed By: #### C HEATH CMP, 08848-3 #### [facility] ([id number]) [address], [facility] [address] [place] [address] Eosinophils (Bld) [#/Vol] 0.0 10*3/uL Normal 0.0-0.4 [facility] Comment on above: Performed By: #### C HEATH, CMP, 94423-6 #### [facility] ([id number]) [address] [address] [place] [address] Eosinophils/100 WBC (Bld) 0.6 % Normal [facility] Comment on above: Performed By: #### Leila JOE, CMP, 69427-1 #### [facility] ([id number]) [address], [facility] [address] [place] [address] Erythrocyte distribution width (RBC) [Ratio] 20.0 % High 11.5-15.0 [facility] Comment on above: Performed By: #### Leila JOE CMP, 63322-4 #### [facility] ([id number]) [address], [facility] [address] [place] [address] Hematocrit (Bld) [Volume fraction] 31.9 % Low 35-47 [facility] Comment on above: Performed By: #### Leila JOE CMP, 16103-5 #### [facility] ([id number]) [address], [facility] [address] [place] [address] Hemoglobin (Bld) [Mass/Vol] 10.2 g/dL Low 11.7-15.5 [facility] Comment on above: Performed By: #### Leila JOE, CMP, 69815-3 #### [facility] ([id number]) [address] [address] [place] [address] Lymphocytes (Bld) [#/Vol] 3.1 10*3/uL Normal 1.0-3.5 [facility] Comment on above: Performed By: #### C HEATH CMP, 60535-3 #### [facility] ([id number]) [address], [address] [place] [address] Lymphocytes/100 WBC (Bld) 41.0 % Normal [facility] Comment on above: Performed By: #### Leial JOE, CMP, 09696-9 #### [facility] ([id number]) [address], [facility] [address] [place] [address] MCH (RBC) [Entitic mass] 22.8 pg Low 27-34 [facility] Comment on above: Performed By: #### Leila JOE, CMP, 02713-4 #### [facility] ([id number]) [address], [facility] [address] [place] [address] MCHC (RBC) [Mass/Vol] 31.9 g/dL Low 32-36 [facility] Comment on above: Performed By: #### Leila JOE, CMP, 08823-5 #### [facility] ([id number]) [address], [address] [place] [address] MCV (RBC) [Entitic vol] 72 fL Low 80-100 P [facility] Comment on above: Performed By: #### Leila JOE CMP, 86612-9 #### [facility] ([id number]) [address], [address] [place] [address] Monocytes (Bld) [#/Vol] 0.5 10*3/uL Normal 0-0.9 [facility] Comment on above: Performed By: #### Leila BCA, CMP, 12084-1 #### [facility] ([id number]) [address], [address] [place] [address] Monocytes/100 WBC (Bld) 6.6 % Normal P [facility] Comment on above: Performed By: #### C BCA, CMP, 63720-2 #### [facility] ([id number]) [address] [address] Neutrophils/100 WBC (Bld) 50.9 % Normal [facility] Comment on above: Performed By: #### Leila BCA, CMP, 08740-4 #### [facility] ([id number]) [address] [address] Platelet mean volume (Bld) [Entitic vol] 7.4 fL Normal 7-12 [facility] Comment on above: Performed By: #### Leila JOE, CMP, 62420-6 #### [facility] ([id number]) [address] [address] Platelets (Bld) [#/Vol] 415 10*3/uL Normal 150-450 [facility] Comment on above: Performed By: #### Leila JOE, CMP, 78102-4 #### [facility] ([id number]) [address] [address] RBC COUNT 4.46 X10E12/L Normal 3.80-5.20 [facility] Comment on above: Performed By: #### Leila JOE, CMP, 34633-2 #### [facility] ([id number]) [address] [address] WBC (Bld) [#/Vol] 7.5 10*3/uL Normal 4.0-11.0 [facility] Comment on above: Performed By: #### Leila BCA, CMP, 20004-7 #### [facility] ([id number]) [address] [address] CHLAMYDIA/GC BY PCRon 2023 CHLAMYDIA/GC BY PCR [...] are dependent on adequate specimen collection. Normal [facility] Comment on above: Performed By: #### C BCA, CMP #### [facility] ([id number]) [address], [address] [place] [address] COMPREHENSIVE METABOLIC PANE Van 06-10-2024 Albumin [Mass/Vol] 4.0 g/dL Normal 3.2-5.3 [facility] Comment on above: Performed By: #### C BCA, CMP, 28186-7 #### [facility] ([id number]) [address], [address] [place] [address] ALP [Catalytic activity/Vol] 65 U/L Normal 39-130 [facility] Comment on above: Performed By: #### C BCA, CMP, 90836-3 #### [facility] ([id number]) [address], [address] [place] [address] ALT [Catalytic activity/Vol] 32 U/L High 0-31 [facility] Comment on above: Performed By: #### C BCA, CMP, 59677-6 #### [facility] ([id number]) [address], [address] [place] [address] Anion gap [Moles/Vol] 11 mmol/L Normal 5-15 [facility] Comment on above: Performed By: #### C BCA, CMP, 17026-9 #### [facility] ([id number]) [address], [address] [place] [address] AST [Catalytic activity/Vol] 29 U/L Normal 0-41 [facility] Comment on above: Performed By: #### C BCA, CMP, 31937-5 #### [facility] ([id number]) [address], [address] [place] [address] Bilirubin [Mass/Vol] 0.6 mg/dL Normal 0.3-1.2 [facility] Comment on above: Performed By: #### C HAETH, CMP, 76768-7 #### [facility] ([id number]) [address], [address] [place] [address] Calcium [Mass/Vol] 9.0 mg/dL Normal 8.5-10.5 [facility] Comment on above: Performed By: #### C BCA, CMP, 21207-9 #### [facility] ([id number]) [address], [facility] [address] [place] [address] Chloride [Moles/Vol] 105 mmol/L Normal 98-109 [facility] Comment on above: Performed By: #### C BCA, CMP, 27338-4 #### [facility] ([id number]) [address], [address] [place] [address] CO2 [Moles/Vol] 24 mmol/L Normal 22-32 [facility] Comment on above: Performed By: #### C BCA, CMP, 21317-8 #### [facility] ([id number]) [address], [address] [place] [address] Creatinine [Mass/Vol] 0.76 mg/dL Normal 0.40-1.00 [facility] Comment on above: Result Comment: METH OD TRACEABLE TO IDMS STANDARD Performed By: #### C HEATH, CMP, 74676-6 #### [facility] ([id number]) [address], [address] [place] [address] eGFR (CKD-EPI) NON-RACE DEPENDENT >90 Normal >59 [facility] Comment on above: Result Comment: Reported eGFR is based on the CKD-EPI 2020 equation that does not use a race coefficient. Performed By: #### C BCA, CMP, 75476-5 #### [facility] ([id number]) [address], [address] [place] [address] Glucose [Mass/Vol] 119 mg/dL High 65-99 [facility] Comment on above: Performed By: #### Leila JOE, CMP, 63727-6 #### [facility] ([id number]) [address], [address] [place] [address] Potassium [Moles/Vol] 3.3 mmol/L Low 3.5-5.0 [facility] Comment on above: Performed By: #### Leila JOE, CMP, 27714-3 #### [facility] ([id number]) [address], [address] [place] [address] Protein [Mass/Vol] 7.2 g/dL Normal 6.0-8.0 [facility] Comment on above: Performed By: #### Leila JOE, CMP, 11470-1 #### [facility] ([id number]) [address], [address] [place] [address] Sodium [Moles/Vol] 140 mmol/L Normal 134-146 [facility] Comment on above: Performed By: #### Leila JOE, CMP, 41541-4 #### [facility] ([id number]) [address], [address] [place] [address] Urea nitrogen [Mass/Vol] 7 mg/dL Normal 5-23 [facility] Comment on above: Performed By: #### Leila JOE, CMP, 09678-4 #### [facility] ([id number]) [address], [address] [place] [address] Follitropin Qnon 06-10-2024 FOLLICLE STIM HORMONE 6.7 mIU/mL Normal [facility] Comment on above: Result Comment: NORMAL FEMALE Luteal 1.8-5.1 mIU/mL Follicular 3.8-8.8 mIU/mL Mid Cycle 4.5-22.5 mIU/mL Post Alexa 16.7-113.6 mIU/mL Performed By: #### C BCA, [facility], 43095-2 #### [facility] ([id number]) [address] [facility], [address] [place] [address] URN MACROSCOPIC NURon 2023 BILIRUBIN AUDREY Small Abnormal NEG [facility] Comment on above: Performed By: #### N UM #### [facility] ([id number]) [address] [place] [address] BLOOD/HGB AUDREY Negative Normal NEG [facility] Comment on above: Performed By: #### N UM #### [facility] ([id number]) [address] [place] [address] GLUCOSE AUDREY Negative Normal NEG [facility] Comment on above: Performed By: #### N UM #### [facility] ([id number]) [address] [place] [address] KETONES AUDREY 15 mg/dL Abnormal NEG [facility] Comment on above: Performed By: #### N UM #### [facility] ([id number]) [address] [place] [address] LEUKOCYTE ESTERASE AUDREY Negative Normal NEG [facility] Comment on above: Performed By: #### N UM #### [facility] ([id number]) [address] [place] [address] NITRITE AUDREY Negative Normal NEG [facility] Comment on above: Performed By: #### N UM #### [facility] ([id number]) [address] [place] [address] PH AUDREY 5.5 Normal 5.0-8.5 [facility] Comment on above: Performed By: #### N UM #### [facility] ([id number]) [address] [place] [address] PROTEIN AUDREY Trace Abnormal NEG [facility] Comment on above: Performed By: #### N UM #### [facility] ([id number]) [address] [place] [address] SPECIFIC GRAVITY AUDREY >=1.030 Normal 1.003-1.035 [facility] Comment on above: Performed By: #### N UM #### [facility] ([id number]) [address] [place] [address] UROBILINOGEN AUDREY 0.2 eu/dL Normal <1.1 [facility] Comment on above: Performed By: #### N UM #### [facility] ([id number]) [address] [place] [address] US PELVIC WITH TRANSVAGINALo n 06-10-2024 US [...] El MD on 06/10/2024 10:18 AM Normal [facility] Urine collection deviceon ER EXTRA URINES ER EXTRA URINE ORDER IN PROCESS Normal [facility] VAGINITIS PANEL PCRon 12-29- 2024 VAGINITIS PANEL PCR BACT. VAGINOSIS DNA Not [...] clinical presentation to determine patient diagnosis. Normal [facility] Comment on above: Performed By: #### V PPCR #### [facility] ([id number]) [address] [place] [address] [address] [place] [address] CBC AND AUTO DIFFon 06-09-20 24 ABSOLUTE BASOPHIL 0.1 X10E9/L Normal 0.0-0.2 [facility] Comment on above: Performed By: #### 2 106-3 #### [facility] ([id number]) [address] [place] [address] ABSOLUTE NEUTROPHIL 2.7 X10E9/L Normal 1.5-6.6 [facility] Comment on above: Performed By: #### 2 106-3 #### [facility] ([id number]) [address] [place] [address] Basophils/100 WBC (Bld) 1.0 % Normal P [facility] Comment on above: Performed By: #### 2 106-3 #### [facility] ([id number]) [address] [place] [address] Eosinophils (Bld) [#/Vol] 0.1 10*3/uL Normal 0.0-0.4 [facility] Comment on above: Performed By: #### 2 106-3 #### [facility] ([id number]) [address] [place] [address] Eosinophils/100 WBC (Bld) 1.0 % Normal [facility] Comment on above: Performed By: #### 2 106-3 #### [facility] ([id number]) [address] [place] [address] Erythrocyte distribution width (RBC) [Ratio] 20.2 % High 11.5-15.0 [facility] Comment on above: Performed By: #### 2 106-3 #### [facility] ([id number]) [address] [place] [address] Hematocrit (Bld) [Volume fraction] 31.2 % Low 35-47 [facility] Comment on above: Performed By: #### 2 106-3 #### [facility] ([id number]) [address] [place] [address] Hemoglobin (Bld) [Mass/Vol] 10.2 g/dL Low 11.7-15.5 [facility] Comment on above: Performed By: #### 2 106-3 #### [facility] ([id number]) [address] [place] [address] Lymphocytes (Bld) [#/Vol] 2.6 10*3/uL Normal 1.0-3.5 [facility] Comment on above: Performed By: #### 2 106-3 #### [facility] ([id number]) [address] [place] [address] Lymphocytes/100 WBC (Bld) 44.6 % Normal [facility] Comment on above: Performed By: #### 2 106-3 #### [facility] ([id number]) [address] [place] [address] MCH (RBC) [Entitic mass] 23.5 pg Low 27-34 [facility] Comment on above: Performed By: #### 2 106-3 #### [facility] ([id number]) [address] [place] [address] MCHC (RBC) [Mass/Vol] 32.8 g/dL Normal 32-36 [facility] Comment on above: Performed By: #### 2 106-3 #### [facility] ([id number]) [address] [place] [address] MCV (RBC) [Entitic vol] 72 fL Low 80-100 [facility] Comment on above: Performed By: #### 2 106-3 #### [facility] ([id number]) [address] [place] [address] Monocytes (Bld) [#/Vol] 0.5 10*3/uL Normal 0-0.9 [facility] Comment on above: Performed By: #### 2 106-3 #### [facility] ([id number]) [address] [place] [address] Monocytes/100 WBC (Bld) 7.7 % Normal [facility] Comment on above: Performed By: #### 2 106-3 #### [facility] ([id number]) [address] [place] [address] Neutrophils/100 WBC (Bld) 45.7 % Normal [facility] Comment on above: Performed By: #### 2 106-3 #### [facility] ([id number]) [address] [place] [address] Platelet mean volume (Bld) [Entitic vol] 7.5 fL Normal 7-12 [facility] Comment on above: Performed By: #### 2 106-3 #### [facility] ([id number]) [address] [place] [address] Platelets (Bld) [#/Vol] 438 10*3/uL Normal 150-450 [facility] Comment on above: Performed By: #### 2 106-3 #### [facility] ([id number]) [address] [place] [address] RBC COUNT 4.35 X10E12/L Normal 3.80-5.20 [facility] Comment on above: Performed By: #### 2 106-3 #### [facility] ([id number]) [address] [place] [address] WBC (Bld) [#/Vol] 5.9 10*3/uL Normal 4.0-11.0 [facility] Comment on above: Performed By: #### 2 106-3 #### [facility] ([id number]) [address] [place] [address] COMPREHENSIVE METABOLIC PANE [facility] 06-09-2024 Albumin [Mass/Vol] 4.1 g/dL Normal 3.2-5.3 [facility] Comment on above: Performed By: #### 2 106-3 #### [facility] ([id number]) [address] [place] [address] ALP [Catalytic activity/Vol] 68 U/L Normal 39-130 [facility] Comment on above: Performed By: #### 2 106-3 #### [facility] ([id number]) [address] [place] [address] ALT [Catalytic activity/Vol] 36 U/L High 0-31 [facility] Comment on above: Performed By: #### 2 106-3 #### [facility] ([id number]) [address] [place] [address] Anion gap [Moles/Vol] 9 mmol/L Normal 5-15 [facility] Comment on above: Performed By: #### 2 106-3 #### [facility] ([id number]) [address] [place] [address] AST [Catalytic activity/Vol] 30 U/L Normal 0-41 [facility] Comment on above: Performed By: #### 2 106-3 #### [facility] ([id number]) [address] [place] [address] Bilirubin [Mass/Vol] 0.7 mg/dL Normal 0.3-1.2 [facility] Comment on above: Performed By: #### 2 106-3 #### [facility] ([id number]) [address] [place] [address] Calcium [Mass/Vol] 9.3 mg/dL Normal 8.5-10.5 [facility] Comment on above: Performed By: #### 2 106-3 #### [facility] ([id number]) [address] [place] [address] Chloride [Moles/Vol] 108 mmol/L Normal 98-109 [facility] Comment on above: Performed By: #### 2 106-3 #### [facility] ([id number]) [address] [place] [address] CO2 [Moles/Vol] 22 mmol/L Normal 22-32 [facility] Comment on above: Performed By: #### 2 106-3 #### [facility] ([id number]) [address] [place] [address] Creatinine [Mass/Vol] 0.75 mg/dL Normal 0.40-1.00 [facility] Comment on above: Result Comment: METH OD TRACEABLE TO IDMS STANDARD Performed By: #### 2 106-3 #### [facility] ([id number]) [address] [place] [address] eGFR (CKD-EPI) NON-RACE DEPENDENT >90 Normal >59 [facility] Comment on above: Result Comment: Reported eGFR is based on the CKD-EPI 2020 equation that does not use a race coefficient. Performed By: #### 2 106-3 #### [facility] ([id number]) [address] [place] [address] Glucose [Mass/Vol] 103 mg/dL High 65-99 [facility] Comment on above: Performed By: #### 2 106-3 #### [facility] ([id number]) [address] [place] [address] Potassium [Moles/Vol] 3.8 mmol/L Normal 3.5-5.0 [facility] Comment on above: Performed By: #### 2 106-3 #### [facility] ([id number]) [address] [place] [address] Protein [Mass/Vol] 7.5 g/dL Normal 6.0-8.0 [facility] Comment on above: Performed By: #### 2 106-3 #### [facility] ([id number]) [address] [place] [address] Sodium [Moles/Vol] 139 mmol/L Normal 134-146 [facility] Comment on above: Performed By: #### 2 106-3 #### [facility] ([id number]) [address] [place] [address] [place] [address] Urea nitrogen [Mass/Vol] 7 mg/dL Normal 5-23 [facility] Comment on above: Performed By: #### 2 106-3 #### [facility] ([id number]) [address] [place] [address] LIPASEon 06-09-2024 Lipase [Catalytic activity/Vol] 37 U/L Normal 17-40 [facility] Comment on above: Performed By: #### 2 106-3 #### [facility] ([id number]) [address] [place] [address]14[address] Lactate (P arely) [Moles/Vol]o n 06-09-2024 LACTATE W/REFLEX 1.2 mmol/L Normal 0.4-2.0 [facility] Comment on above: Result Comment: Result did not trigger repeat Lactate, re-order if needed. Performed By: #### 2 106-3 #### [facility] ([id number]) [address] [place] [address] URINE CULTUREon 06-09-2024 Bacteria identified Cx Nom (U) CULTURE RESULTS 10-50,000 ORGANISMS/mL NORMAL UROGENITAL RASHID Normal [facility] Comment on above: Performed By: #### 6 30-4 ####[facility] ([id number])[address] [facility], [address], [place] [address] URN MACROSCOPIC NURon 2023 BILIRUBIN AUDREY Negative Normal NEG [facility] Comment on above: Performed By: #### N UM ####[facility] ([id number])[address] [place] [address] BLOOD/HGB AUDREY Trace Abnormal NEG [facility] Comment on above: Performed By: #### N UM ####[facility] ([id number])[address] [place] [address], [place] [address] GLUCOSE AUDREY Negative Normal NEG [facility] Comment on above: Performed By: #### N UM ####[facility] ([id number])[address] [place] [address], [place] [address] KETONES AUDREY Negative Normal NEG [facility] Comment on above: Performed By: #### N UM ####[facility] ([id number])[address] [place] [address], [place] [address] LEUKOCYTE ESTERASE AUDREY Trace Abnormal NEG Pr [facility] Comment on above: Performed By: #### N UM ####[facility] ([id number])[address] [place] [address] NITRITE AUDREY Negative Normal NEG [facility] Comment on above: Performed By: #### N UM ####[facility] ([id number])[address] [place] [id number] PH AUDREY 6.5 Normal 5.0-8.5 [facility] Comment on above: Performed By: #### N UM ####[facility] ([id number])[address] [place] [address] PROTEIN AUDREY Negative Normal NEG [facility] Comment on above: Performed By: #### N UM ####[facility] ([id number])[address] [place] [address] SPECIFIC GRAVITY AUDREY 1.010 Normal 1.003-1.035 [facility] Comment on above: Performed By: #### N UM ####[facility] ([id number])[address] [place] [address] UROBILINOGEN AUDREY 1.0 eu/dL Normal <1.1 [facility] Comment on above: Performed By: #### N UM ####[facility] ([id number])[address] [place] [address] .Auto Diff 06-08-2024 Auto Hendry % 5 % Normal 06-24 [facility] Comment on above: Performed By: #### 1 [id number], [id number], [id number], [id number] ####[facility] (DEFAULT)[address] [place], [place] [id number] Baso Abs# 0.1 x10 Normal 0.0-0.2 [facility] Comment on above: Performed By: #### 1 [id number], [id number], [id number] ####[facility] (DEFAULT)[address] [place] [address] 72519 Basophils/100 WBC (Bld) 1.0 % Normal 0.2-2.0 [facility] Comment on above: Performed By: #### 1 [id number], [id number], [id number], 9200109, 94916577 ####[facility] (DEFAULT)[address] [place] [address] 46452 Eos Abs# 0.0 x10 Normal 0.0-0.4 [facility] Comment on above: Performed By: #### 1 [id number], [id number], 1083600963, 8384105, 34960751 ####[facility] (DEFAULT)[address] [place] [address] 18762 Eosinophils/100 WBC (Bld) 0.4 % Low 0.9-4.0 [facility] Comment on above: Performed By: #### 1 [id number], [id number], 9602945348, 6266287, 60084901 ####[facility] (DEFAULT)[address] [place] [address] 72519 Lymph Abs# 1.7 x10 Normal 1.3-2.9 [facility] Comment on above: Performed By: #### 1 [id number], [id number], 4259034321, 2355619, 59632344 ####[facility] (DEFAULT)[address] [place] [address] 89788 Lymphocytes/100 WBC (Bld) 27 % Normal 14-48 [facility] Comment on above: Performed By: #### 1 [id number], 6344645694, 5234134403, 1394172, 48041581 ####[facility] (DEFAULT)[address] [place] [address] 78053 Hendry Abs# 0.3 x10 Normal 0.0-0.8 [facility] Comment on above: Performed By: #### 1 [id number], [id number], 5880246773, 9548776, 15767756 ####[facility] (DEFAULT)[address] [place] [address] 56229 Neut Abs# 4.2 x10 Normal 1.5-9.2 [facility] Comment on above: Performed By: #### 1 [id number], [id number], 3787268000, 5082654, 70162277 ####[facility] (DEFAULT)[address] [place] [address] Neutrophils/100 WBC (Bld) 66 % Normal 44-88 [facility] Comment on above: Performed By: #### 1 [id number], 8664670815, 9480799377, 3345172, 90821918 ####[facility] (DEFAULT)[address] [place] [address] CBC w/ Auto Diffon Erythrocyte distribution width (RBC) [Ratio] 20.2 % High 11.5-15.0 [facility] Comment on above: Performed By: #### 1 [id number], [id number], 1639954141, 9089282, 52904317 ####[facility] (DEFAULT)[address] [place] [address] Hematocrit (Bld) [Volume fraction] 34.5 % Normal 33.7-40.4 [facility] Comment on above: Performed By: #### 1 [id number], [id number], 0369580229, 1360466, 18784686 ####[facility] (DEFAULT)[address] [place] [address] Hemoglobin (Bld) [Mass/Vol] 10.9 g/dL Low 11.3-15.9 [facility] Comment on above: Performed By: #### 1 [id number], 3483051911, 9072489978, 1489962, 59020677 ####[facility] (DEFAULT)[address] [place] [address] Man Diff? Auto Invalid Interpretation Code [facility] Comment on above: Performed By: #### 1 [id number], [id number], 8405240758, 3244040, 71111775 ####[facility] (DEFAULT)[address] [place] [address] MCH (RBC) [Entitic mass] 23 pg Low 24-34 [facility] Comment on above: Performed By: #### 1 [id number], [id number], 2403015735, 1085880, 87213439 ####[facility] (DEFAULT)[address] [place] [address] 33980 MCHC (RBC) [Mass/Vol] 32 g/dL Normal 26-37 [facility] Comment on above: Performed By: #### 1 [id number], 0523212400, 1568877052, 0725713, 81330160 ####[facility] (DEFAULT)[address] [place] [address] MCV (RBC) [Entitic vol] 72 fL Low 81-100 [facility] Comment on above: Performed By: #### 1 [id number], 3705585997, 2572453503, 5178093, 54983660 ####[facility] (DEFAULT)[address] [place] [address] Platelet 457 x10 High 138-427 [facility] Comment on above: Performed By: #### 1 [id number], 5690441071, 6915517543, 6943667, 48484533 ####[facility] (DEFAULT)[address] [place] [address] 59662 Platelet mean volume (Bld) [Entitic vol] 7.5 fL Normal 6.3-10.2 [facility] Comment on above: Performed By: #### 1 [id number], [id number], 0896038822, 9514458, 23600440 ####[facility] (DEFAULT)[address] [place] [address] RBC 4.77 x10 Normal 3.70-5.30 [facility] Comment on above: Performed By: #### 1 [id number], 0865194006, 8555099957, 9398590, 96294184 ####[facility] (DEFAULT)[address] [place] [address] WBC 6.4 x10 Normal 3.5-10.5 [facility] Comment on above: Performed By: #### 1 [id number], 9316092743, 1527676562, 8740038, 18166135 ####[facility] (DEFAULT)[address] [place] [address] 25930[facility] Standardon 06-08-2024 eGFR Non AA >60 Invalid Interpretation Code [facility] Comment on above: Performed By: #### 1 [id number], [id number], 7199698184, 4374104, 62939482 ####[facility] (DEFAULT)[address] [place] [address] eGFR AA >60 Invalid Interpretation Code [facility] Comment on above: Performed By: #### 1 [id number], 7773958163, 1559682317, 1261324, 15715537 ####[facility] (DEFAULT)[address] [place] [address] Albumin [Mass/Vol] 4.3 g/dL Normal 3.5-5.0 [facility] Comment on above: Performed By: #### 1 [id number], 0387676999, 3580019656, 8207700, 35457541 ####[facility] (DEFAULT)[address] [place] [address] Albumin/Globulin [Mass ratio] 1.0 {ratio} Low 1.4-2.6 [facility] Comment on above: Performed By: #### 1 [id number], 4036919895, 7175000611, 9480407, 53977420 ####[facility] (DEFAULT)[address] [place] [address] 69509 Alk Phos 63 IU/L Normal 32-91 [facility] Comment on above: Performed By: #### 1 [id number], 4361586095, 1659692706, 6899895, 27486949 ####[facility] (DEFAULT)[address] [place] [address] ALT [Catalytic activity/Vol] 30.0 U/L Normal 14.0-54.0 [facility] Comment on above: Performed By: #### 1 [id number], 0653229482, 9814075465, 6456450, 33164341 ####[facility] (DEFAULT)[address] [place] [address] Anion gap [Moles/Vol] 12.9 mmol/L Normal 5.0-19.0 [facility] Comment on above: Performed By: #### 1 [id number], 1664788140, 4241246432, 4856345, 35484246 ####[facility] (DEFAULT)[address] [place] [address] 73996 AST [Catalytic activity/Vol] 22 U/L Normal 15-41 [facility] Comment on above: Performed By: #### 1 [id number], 1020179869, 1310650297, 0844553, 62993848 ####[facility] (DEFAULT)[address] [place] [address] 27099 Bili Total 0.5 mg/dL Normal 0.3-1.2 [facility] Comment on above: Performed By: #### 1 [id number], 3266009900, 4906933449, 2813629, 65108390 ####[facility] (DEFAULT)[address] [place] [address] 05516 Calcium [Mass/Vol] 9.3 mg/dL Normal 8.9-10.3 [facility] Comment on above: Performed By: #### 1 [id number], [id number], 8456928523, 1216995, 63688006 ####[facility] (DEFAULT)[address] [place] [address] 33531 Chloride [Moles/Vol] 106 mmol/L Normal 101-[address] [facility] Comment on above: Performed By: #### 1 [id number], 0701843770, 9538226722, 9470399, 12494982 ####[facility] (DEFAULT)[address] [place] [address] 62039 CO2 [Moles/Vol] 22 mmol/L Normal 21-32 [facility] Comment on above: Performed By: #### 1 [id number], 4567963912, 9300901451, 4191711, 92201369 ####[facility] (DEFAULT)[address] [place] [address] 42624 Creatinine [Mass/Vol] 0.70 mg/dL Normal 0.60-1.30 [facility] Comment on above: Performed By: #### 1 [id number], 4434637604, 8170605239, 7141848, 98967050 ####[facility] (DEFAULT)[address] [place] [address] 73771 Globulin (S) [Mass/Vol] 4.0 g/dL Normal 1.5-4.3 [facility] Comment on above: Performed By: #### 1 [id number], 4984364283, 3687954260, 7932594, 53585823 ####[facility] (DEFAULT)[address] [place] [address] 68509 Glucose [Mass/Vol] 109.0 mg/dL Normal 74.0-118.0 [facility] Comment on above: Performed By: #### 1 [id number], 3685272147, 7682956702, 3829900, 09867789 ####[facility] (DEFAULT)[address] [place] [address] 72474 Osmolality 272 mOsm/L Invalid Interpretation Code [facility] Comment on above: Performed By: #### 1 [id number], 3854773530, 0684411225, 5775121, 85278593 ####[facility] (DEFAULT)[address] [place] [address] 97109 Potassium [Moles/Vol] 3.9 mmol/L Normal 3.6-5.1 [facility] Comment on above: Performed By: #### 1 [id number], 8927266408, 3745630677, 8820847, 24709967 ####[facility] (DEFAULT)[address] [place] [address] 91587 Protein [Mass/Vol] 8.3 g/dL High 6.5-8.1 [facility] Comment on above: Performed By: #### 1 [id number], 8881274646, 6974896881, 6923245, 00470310 ####[facility] (DEFAULT)[address] [place] [address] 18350 Sodium [Moles/Vol] 137.0 mmol/L Normal 136.0-144.0 [facility] Comment on above: Performed By: #### 1 [id number], 4926573844, 5560987449, 9042545, 20685829 ####[facility] (DEFAULT)[address] [place] [address] Urea nitrogen [Mass/Vol] 7 mg/dL Low 8-26 [facility] Comment on above: Performed By: #### 1 [id number], 1158645880, 6240220195, 7244631, 22158378 ####[facility] (DEFAULT)[address] [place] [address] Urea nitrogen/Creatinine [Mass ratio] 10.0 mg/mg Normal 4.6-16.2 [facility] Comment on above: Performed By: #### 1 [id number], 2386710233, 3840568918, 3166229, 21177218 ####[facility] (DEFAULT)[address] [place] [address] CT Abdomen/Pelvis w/ Contras ton 06-08-2024 CT [...] MD 06/08/24 9:36 pm Technologist: PREMA Miller [facility] ED Clinical Summaryon 2023 ED Clinical Summary [facility] - Emergency Department [address] [place] [address] ED Clinical Summary PERSON INFORMATION Name: ANTONIA NOYOLA Age: 39 Years Sex: FEMALE : 1985 MRN: Acct#: Visit Reason: Flank pain; Abdominal pain; ABDOMINAL PAIN Arrival: 06/08/2024 17:53:36 Discharge: 06/08/2024 22:16:00 LOS: 000 04:23 Check In: 06/08/2024 17:53:36 Checkout:06/08/2024 22:16:00 Address: [address] [place] [address] [place] [address] PCP: Provider, None PROVIDER INFORMATION Provider Role Assigned Unassigned Jasmyn Magana MD ED Provider 06/08/2024 18:36:34 Kenrda Tobar [employer] Nurse 06/08/2024 18:45:19 Radha Shabazz [employer] Nurse 06/08/2024 19:29:52 Sandeep Corea MD ED [...] verbalizes understanding of instructions given Comment: Normal [facility] ED Patient Summaryon 024 ED Patient Summary [facility] - Emergency Department [address] [place] [address] PATIENT DISCHARGE INSTRUCTIONS Patient Information Name: ANTONIA NOYOLA Age: 39 Years Date of : 1985 Reason For Visit: Flank pain; Abdominal pain; ABDOMINAL PAIN Arrival Time: 06/08/2024 17:53:36 Primary Care Physician: Provider, None Attending Physician: Jasmyn Magana MD Comment: Visit Diagnosis: Diagnoses This Visit Abdominal pain ([id number]) Abdominal pain (R10.9) Abdominal pain in female patient (R10.9) Flank pain ([id number]) The Pharmacy at [facility] is open Tuesday through Tuesday from 9A [...] alcohol and/or drug addiction problems; contact the [facility] 03/01 Crisis Hotline -Text 0MUFP hy [phone]. If you received any narcotics, sedation, or [...] and treatment you received today in the [facility] Emergency Department were for an urgent problem and are not intended as complete care. It is important for you to follow up with a doctor, nurse practitioner, or physician?s assistant professor of nursing for ongoing care. If your symptoms become [...] so we can reach you if necessary. [facility] Emergency Department has provided you with a complete list of medications post discharge. Please inform your print shop assistant/provider of your visit and for further instruction [...] found Patient Education Endometriosis Follow-up with your CHIEF INVESTIGATOR to review this emergency department visit and [...] bleeding during menstrual (more content not included)... [facility] Extra Redon 06-08-2024 Tube Collected Yes Invalid Interpretation Code [facility] Comment on above: Performed By: #### 1 [id number], [id number], 7925969262, 3556223, 91011801 ####[facility] (DEFAULT)[address] [place] [address] 78927 Test Urine 1on U Preg Negative [facility] Comment on above: Performed By: #### 1 [id number], [id number] ####[facility] (DEFAULT)[address] [place] [address] 50147 U Preg Internal Control [facility] Comment on above: Performed By: #### 1 [id number], [id number] ####[facility] (DEFAULT)[address] [place] [address] 02381 Progress Note - Nurseon 05-14 Progress Note - Nurse This nurse verdemetria d with patient that she had a ride [...] on: 06/08/2024 22:16 EST] Radha Shabazz RN [facility] UA w Culture if Ind Standard on 06-08-2024 Breakpoint UA [facility] Comment on above: Performed By: #### 1 [id number], [id number] ####[facility] (DEFAULT)[address] [place] [address] Color (U) Straw [facility] Comment on above: Performed By: #### 1 [id number], [id number] ####[facility] (DEFAULT)[address] [place] [address] Culture? Not Indicated Invalid Interpretation Code [facility] Comment on above: Result Comment: Resu lt created by rule GL_MAGR_ADD_UA_CULT1 Result created by rule GL_MAGR_ADD_UA_CULT1 Performed By: #### 1 [id number], [id number] ####[facility] (DEFAULT)[address] [place] [address] Glucose (U) [Mass/Vol] Negative [facility] Comment on above: Performed By: #### 1 [id number], [id number] ####[facility] (DEFAULT)[address] [place] [address] 88304 Ketones Ql (U) Negative [facility] Comment on above: Performed By: #### 1 [id number], [id number] ####[facility] (DEFAULT)[address] [place] [address] 88144 Micro? Not Indicated Invalid Interpretation Code [facility] Comment on above: Result Comment: Resu lt created by rule GL_MAGR_ADD_UA_MICRO Result created by rule GL_MAGR_ADD_UA_MICRO Performed By: #### 1 [id number], [id number] ####[facility] (DEFAULT)[address] [place] [address] UA Bilirubin Negative [facility] Comment on above: Performed By: #### 1 [id number], [id number] ####[facility] (DEFAULT)[address] [place] [address] 11176 UA Blood Negative Normal [facility] Comment on above: Performed By: #### 1 [id number], [id number] ####[facility] (DEFAULT)[address] [place] [address] 35547 UA Clarity CLEAR Normal CLEAR [facility] Comment on above: Performed By: #### 1 [id number], [id number] ####[facility] (DEFAULT)[address] [place] [address] 63926 UA Leuk Est Negative Normal NEGATIVE [facility] Comment on above: Performed By: #### 1 [id number], [id number] ####[facility] (DEFAULT)[address] [place] [address] 44463 UA Nitrite Negative Normal NEGATIVE [facility] Comment on above: Performed By: #### 1 [id number], [id number] ####[facility] (DEFAULT)[address] [place] [address] UA pH 7.0 Normal 5-8 [facility] Comment on above: Performed By: #### 1 [id number], [id number] ####[facility] (DEFAULT)[address] [place] [address] UA Protein Negative Normal NEGATIVE [facility] Comment on above: Performed By: #### 1 [id number], [id number] ####[facility] (DEFAULT)[address] [place] [address] UA Spec Grav <=1.005 Normal 1.001-1.035 [facility] Comment on above: Performed By: #### 1 [id number], [id number] ####[facility] (DEFAULT)[address] [place] [address] 79803 UA Urobilinogen 0.2 mg/dL Normal 0.2-1.0 [facility] Comment on above: Performed By: #### 1 [id number], [id number] ####[facility] (DEFAULT)[address] [place] [address] Urine Source Clean Catch Normal [facility] Comment on above: Performed By: #### 1 [id number], [id number] ####[facility] (DEFAULT)[address] [place] [address] CBC AND AUTO DIFFon 12-24-20 24 ABSOLUTE BASOPHIL 0.1 X10E9/L Normal 0.0-0.2 [facility] Comment on above: Performed By: #### 2 106-3 #### [facility] ([id number]) [address] [place] [address] 82846 ABSOLUTE NEUTROPHIL 4.9 X10E9/L Normal 1.5-6.6 [facility] Comment on above: Performed By: #### 2 106-3 #### [facility] ([id number]) [address] [place] [address] 24948 Basophils/100 WBC (Bld) 0.9 % Normal [facility] Comment on above: Performed By: #### 2 106-3 #### [facility] ([id number]) [address] [place] [address] 46766 Eosinophils (Bld) [#/Vol] 0.1 10*3/uL Normal 0.0-0.4 [facility] Comment on above: Performed By: #### 2 106-3 #### [facility] ([id number]) [address] [place] [address] 17748 Eosinophils/100 WBC (Bld) 0.7 % Normal [facility] Comment on above: Performed By: #### 2 106-3 #### [facility] ([id number]) [address] [place] [address] 67172 Erythrocyte distribution width (RBC) [Ratio] 19.6 % High 11.5-15.0 [facility] Comment on above: Performed By: #### 2 106-3 #### [facility] ([id number]) [address] [place] [address] 37954 Hematocrit (Bld) [Volume fraction] 35.6 % Normal 35-47 [facility] Comment on above: Performed By: #### 2 106-3 #### [facility] ([id number]) [address] [place] [address] 14183 Hemoglobin (Bld) [Mass/Vol] 11.2 g/dL Low 11.7-15.5 [facility] Comment on above: Performed By: #### 2 106-3 #### [facility] ([id number]) [address] [place] [address] 86006 Lymphocytes (Bld) [#/Vol] 2.5 10*3/uL Normal 1.0-3.5 [facility] Comment on above: Performed By: #### 2 106-3 #### [facility] ([id number]) [address] [place] [address] 72299 Lymphocytes/100 WBC (Bld) 31.5 % Normal [facility] Comment on above: Performed By: #### 2 106-3 #### [facility] ([id number]) [address] [place] [address] 74980 MCH (RBC) [Entitic mass] 22.7 pg Low 27-34 [facility] Comment on above: Performed By: #### 2 106-3 #### [facility] ([id number]) [address] [place] [address] 12601 MCHC (RBC) [Mass/Vol] 31.4 g/dL Low 32-36 [facility] Comment on above: Performed By: #### 2 106-3 #### [facility] ([id number]) [address] [place] [address] 53892 MCV (RBC) [Entitic vol] 72 fL Low 80-100 [facility] Comment on above: Performed By: #### 2 106-3 #### [facility] ([id number]) [address] [place] [address] 11220 Monocytes (Bld) [#/Vol] 0.4 10*3/uL Normal 0-0.9 [facility] Comment on above: Performed By: #### 2 106-3 #### [facility] ([id number]) [address] [place] [address] 17418 Monocytes/100 WBC (Bld) 5.4 % Normal [facility] Comment on above: Performed By: #### 2 106-3 #### [facility] ([id number]) [address] [place] [address] 10384 Neutrophils/100 WBC (Bld) 61.5 % Normal [facility] Comment on above: Performed By: #### 2 106-3 #### [facility] ([id number]) [address] [place] [address] 33077 Platelet mean volume (Bld) [Entitic vol] 7.7 fL Normal 7-12 [facility] Comment on above: Performed By: #### 2 106-3 #### [facility] ([id number]) [address] [place] [address] 14184 Platelets (Bld) [#/Vol] 451 10*3/uL High 150-450 [facility] Comment on above: Performed By: #### 2 106-3 #### [facility] ([id number]) [address] [place] [address] 04266 RBC COUNT 4.93 X10E12/L Normal 3.80-5.20 [facility] Comment on above: Performed By: #### 2 106-3 #### [facility] ([id number]) [address] [place] [address] 16811 WBC (Bld) [#/Vol] 8.0 10*3/uL Normal 4.0-11.0 [facility] Comment on above: Performed By: #### 2 106-3 #### [facility] ([id number]) [address] [place] [address] 83626 COMPREHENSIVE METABOLIC [facility] 06-05-2024 Albumin [Mass/Vol] 4.6 g/dL Normal 3.2-5.3 [facility] Comment on above: Performed By: #### 2 106-3 #### [facility] ([id number]) [address] [place] [address] 07419 ALP [Catalytic activity/Vol] 67 U/L Normal 39-130 [facility] Comment on above: Performed By: #### 2 106-3 #### [facility] ([id number]) [address] [place] [address] 89286 ALT [Catalytic activity/Vol] 14 U/L Normal 0-31 [facility] Comment on above: Performed By: #### 2 106-3 #### [facility] ([id number]) [address] [place] [address] 22091 Anion gap [Moles/Vol] 13 mmol/L Normal 5-15 [facility] Comment on above: Performed By: #### 2 106-3 #### [facility] ([id number]) [address] [place] [address] 03477 AST [Catalytic activity/Vol] 19 U/L Normal 0-41 [facility] Comment on above: Performed By: #### 2 106-3 #### [facility] ([id number]) [address] [place] [address] 65128 Bilirubin [Mass/Vol] 0.3 mg/dL Normal 0.3-1.2 [facility] Comment on above: Performed By: #### 2 106-3 #### [facility] ([id number]) [address] [place] [address] 55628 Calcium [Mass/Vol] 10.0 mg/dL Normal 8.5-10.5 [facility] Comment on above: Performed By: #### 2 106-3 #### [facility] ([id number]) [address] [place] [address] 43352 Chloride [Moles/Vol] 105 mmol/L Normal 98-109 [facility] Comment on above: Performed By: #### 2 106-3 #### [facility] ([id number]) [address] [place] [address] 30093 CO2 [Moles/Vol] 21 mmol/L Low 22-32 [facility] Comment on above: Performed By: #### 2 106-3 #### [facility] ([id number]) [address] [place] [address] 06613 Creatinine [Mass/Vol] 0.97 mg/dL Normal 0.40-1.00 [facility] Comment on above: Result Comment: METH OD TRACEABLE TO IDMS STANDARD Performed By: #### 2 106-3 #### [facility] ([id number]) [address] [place] [address] 09284 GFR/1.73 sq M.predicted among non-blacks MDRD (S/P/Bld) [Vol rate/Area] 77 mL/min/{1.73_m2} Normal >59 [facility] Comment on above: Result Comment: Reported eGFR is based on the CKD-EPI 2020 equation that does not use a race coefficient. Performed By: #### 2 106-3 #### [facility] ([id number]) [address] [place] [address] 06598 Glucose [Mass/Vol] 98 mg/dL Normal 65-99 [facility] Comment on above: Performed By: #### 2 106-3 #### [facility] ([id number]) [address] [place] [address] 67665 Potassium [Moles/Vol] 3.7 mmol/L Normal 3.5-5.0 [facility] Comment on above: Performed By: #### 2 106-3 #### [facility] ([id number]) [address] [place] [address] 55453 Protein [Mass/Vol] 8.3 g/dL High 6.0-8.0 [facility] Comment on above: Performed By: #### 2 106-3 #### [facility] ([id number]) [address] [place] [address] 21930 Sodium [Moles/Vol] 139 mmol/L Normal 134-146 [facility] Comment on above: Performed By: #### 2 106-3 #### [facility] ([id number]) [address] [place] [address] 65806 Urea nitrogen [Mass/Vol] 11 mg/dL Normal 5-23 [facility] Comment on above: Performed By: #### 2 106-3 #### [facility] ([id number]) [address] [place] [address] ABDOMEN AND PELVIS W CONT on [...] Lang MD on 06/05/2024 8:30 PM Normal [facility] HCG ( test) Ql (U)o n 06-05-2024 Beta HCG ( test) Ql (U) Negative Normal NEG [facility] Comment on above: Performed By: #### 2 106-3 #### [facility] ([id number]) [address] [place] [address] 84741 LIPASEon 06-05-2024 Lipase [Catalytic activity/Vol] 44 U/L High 17-40 [facility] Comment on above: Performed By: #### 2 106-3 #### [facility] ([id number]) [address] [place] [address] 73748 URN MACROSCOPIC NURon 2023 BILIRUBIN AUDREY Negative Normal NEG [facility] Comment on above: Performed By: #### 2 106-3 #### [facility] ([id number]) [address] [place] [address] 35846 BLOOD/HGB AUDREY Negative Normal NEG [facility] Comment on above: Performed By: #### 2 106-3 #### [facility] ([id number]) [address] [place] [address] [place] [address] GLUCOSE AUDREY Negative Normal NEG [facility] Comment on above: Performed By: #### 2 106-3 #### [facility] ([id number]) [address] [place] [address] [place] [address] KETONES AUDREY Negative Normal NEG [facility] Comment on above: Performed By: #### 2 106-3 #### [facility] ([id number]) [address] [place] [address] 20122 LEUKOCYTE ESTERASE AUDREY Negative Normal NEG [facility] Comment on above: Performed By: #### 2 106-3 #### [facility] ([id number]) [address] [place] [address] 10396 NITRITE AUDREY Negative Normal NEG [facility] Comment on above: Performed By: #### 2 106-3 #### [facility] ([id number]) [address] [place] [address] 77412 PH AUDREY 7.0 Normal 5.0-8.5 [facility] Comment on above: Performed By: #### 2 106-3 #### [facility] ([id number]) [address] [place] [address] 87179 PROTEIN AUDREY Negative Normal NEG [facility] Comment on above: Performed By: #### 2 106-3 #### [facility] ([id number]) [address] [place] [address] 67915 SPECIFIC GRAVITY AUDREY 1.015 Normal 1.003-1.035 [facility] Comment on above: Performed By: #### 2 106-3 #### [facility] ([id number]) [address] [place] [address] 21214 UROBILINOGEN AUDREY 1.0 eu/dL Normal <1.1 [facility] Comment on above: Performed By: #### 2 106-3 #### [facility] ([id number]) [address] [place] [address] 66259 CBC with Diffon 05-28-2024 Morphology Edson (Bld) [Interp] SLIGHT Normal [facility] Comment on above: Result Comment: MICR OCYTOSIS Performed By: #### C P, CDP #### [facility] [address] [place], [place] [id number] [employer]: Jennifer Freire MD Urinalysis, Routineon 2023 Bilirubin, SemiQt,Ur Negative Normal NEG [facility] Comment on above: Performed By: #### U MARCELA Mireles #### [facility] [address] [place], [place] [id number] [employer]: Jennifer Freire MD Blood, Urine TRACE Abnormal NEG [facility] Comment on above: Performed By: #### U A, UMICAO #### [facility] [address] [place] [address] [employer]: Jennifer Freire MD Clarity (U) Clear Normal CLEAR [facility] Comment on above: Performed By: #### U A, UMICAO #### [facility] [address] [place] [address] [employer]: Jennifer Freire MD Color (U) Yellow Normal YEL [facility] Comment on above: Performed By: #### U A, UMICAO #### [facility] [address] [place] [address] [employer]: Jennifer Freire MD Comment Normal [facility] Comment on above: Performed By: #### U A, UMICAO #### [facility] [address] [place] [address] [employer]: Jennifer Freire MD Glucose Ql (U) Negative Normal NEG [facility] Comment on above: Performed By: #### U A, UMICAO #### [facility] [address] [place] [address] [employer]: Jennifer Freire MD Ketones Ql (U) Negative Normal NEG [facility] Comment on above: Performed By: #### U A, UMICAO #### [facility] [address] [place] [address] [employer]: Jennifer Freire MD Leukocyte esterase Test strip Ql (U) Negative Normal NEG [facility] Comment on above: Performed By: #### U A, UMICAO #### [facility] [address] [place] [address] [employer]: Jennifer Freire MD Nitrite,Ur Negative Normal NEG [facility] Comment on above: Performed By: #### U A, UMICAO #### [facility] [address] [place] [address] [employer]: Jennifer Freire MD PH,Ur 7.0 Normal 5.0-8.0 [facility] Comment on above: Performed By: #### U A, UMICAO #### [facility] [address] [place] [address] [employer]: Jennifer Freire MD Protein Ql (U) Negative Normal NEG [facility] Comment on above: Performed By: #### U A, UMICAO #### [facility] [address] [place] [address] [employer]: Jennifer Freire MD Spec. Alexis,Ur 1.010 Normal 1.005-1.030 [facility] Comment on above: Performed By: #### U A, UMICAO #### [facility] [address] [place] [address] [employer]: Jennifer Freire MD Urobilinogen,Ur Normal Normal 0.0-1.0 [facility] Comment on above: Performed By: #### U A, UMICAO #### [facility] [address] [place] [address] [employer]: Jennifer Freire MD Urinalysis,Microon 4 ----- Normal [facility] Comment on above: Performed By: #### U A, UMICAO #### [facility] [address] [place] [address] [employer]: Jennifer Freire MD Urine RBC's 2 TO 5 Normal 0-2 [facility] Comment on above: Performed By: #### U A, UMICAO #### [facility] [address] [place] [address] [employer]: Jennifer Freire MD Urine WBC's None Seen Normal 0 [facility] Comment on above: Performed By: #### U AMARCELA #### [facility] [address] [place] [id number] [employer]: Jennifer Freire MD CBC with Diffon 05-27-2024 Abs. Basophil 0.03 k/uL Normal 0.00-0.20 [facility] Comment on above: Performed By: #### C P, CDP #### [facility] [address] [place] [id number] [employer]: Jennifer Freire MD Abs.Imm.Granulocyte 0.01 k/uL Normal 0.00-0.30 [facility] Comment on above: Performed By: #### C P, CDP #### [facility] [address] [place] [address] [employer]: Jennifer Freire MD Abs.Neutrophil (Seg) 4.33 k/uL Normal 2.5-7.0 [facility] Comment on above: Performed By: #### C P, CDP #### [facility] [address] [place] [id number] [employer]: Jennifer Freire MD Basophils/100 WBC (Bld) 0 % Normal 0-2 [facility] Comment on above: Performed By: #### C P, CDP #### [facility] [address] [place] [id number] [employer]: Jennifer Freire MD Eosinophils (Bld) [#/Vol] 0.08 10*3/uL Normal 0.00-0.40 [facility] Comment on above: Performed By: #### C P, CDP #### [facility] [address] [place] [id number] [employer]: Jennifer Freire MD Eosinophils/100 WBC (Bld) 1 % Normal 0-5 [facility] Comment on above: Performed By: #### C P, CDP #### [facility] [address] [place] [address] [employer]: Jennifer Freire MD Erythrocyte distribution width (RBC) [Ratio] 17.2 % High 12.1-15.2 [facility] Comment on above: Performed By: #### C P, CDP #### [facility] [address] [place] [address] [employer]: Jennifer Freire MD Hematocrit (Bld) [Volume fraction] 36.4 % Normal 36.0-46.0 [facility] Comment on above: Performed By: #### C P, CDP #### [facility] [address] [place] [address] [employer]: Jennifer Freire MD Hemoglobin (Bld) [Mass/Vol] 11.4 g/dL Low 12.0-16.0 [facility] Comment on above: Performed By: #### C P, CDP #### [facility] [address] [place] [address] [employer]: Jennifer Freire MD Immature granulocytes/100 WBC (Bld) 0 % Normal 0-5 [facility] Comment on above: Performed By: #### C P, CDP #### [facility] [address] [place] [address] [employer]: Jennifer Freire MD Lymphocytes (Bld) [#/Vol] 3.24 10*3/uL Normal 1.00-4.80 [facility] Comment on above: Performed By: #### C P, CDP #### [facility] [address] [place] [address] [employer]: Jennifer Freire MD Lymphocytes/100 WBC (Bld) 40 % Normal 15-40 [facility] Comment on above: Performed By: #### C P, CDP #### [facility] [address] [place] [address] [employer]: Jennifer Freire MD MCH (RBC) [Entitic mass] 22.6 pg Low 26.0-34.0 [facility] Comment on above: Performed By: #### C P, CDP #### [facility] [address] [place] [address] [employer]: Jennifer Freire MD MCHC (RBC) [Mass/Vol] 31.3 g/dL Normal 31.0-37.0 [facility] Comment on above: Performed By: #### C P, CDP #### [facility] [address] [place] [address] [employer]: Jennifer Freire MD MCV (RBC) [Entitic vol] 72.2 fL Low 80.0-100.0 [facility] Comment on above: Performed By: #### C P, CDP #### [facility] [address] [place] [address] [employer]: Jennifer Freire MD Monocytes (Bld) [#/Vol] 0.51 10*3/uL Normal 0.00-1.00 [facility] Comment on above: Performed By: #### C P, CDP #### [facility] [address] [place] [address] [employer]: Jennifer Freire MD Monocytes/100 WBC (Bld) 6 % Normal 4-8 [facility] Comment on above: Performed By: #### C P, CDP #### [facility] [address] [place] [address] [employer]: Jennifer Freire MD Neutrophil (Seg) 53 % Normal 47-75 [facility] Comment on above: Performed By: #### C P, CDP #### [facility] [address] [place] [address] [employer]: Jennifer Freire MD Platelet mean volume (Bld) [Entitic vol] 9.3 fL Normal 6.0-12.0 [facility] Comment on above: Performed By: #### C P, CDP #### [facility] [address] [place] [address] [employer]: Jennifer Freire MD Platelets (Bld) [#/Vol] 583 10*3/uL High 140-450 [facility] Comment on above: Performed By: #### C P, CDP #### [facility] [address] [place], [place] [id number] [employer]: Jennifer Freire MD RBC (Bld) [#/Vol] 5.04 10*6/uL Normal 4.00-5.20 [facility] Comment on above: Performed By: #### C P, CDP #### [facility] [address] [place] [address] [employer]: Jennifer Freire MD WBC (Bld) [#/Vol] 8.2 10*3/uL Normal 3.5-11.0 [facility] Comment on above: Performed By: #### C P, CDP #### [facility] [address] [place] [address] [employer]: Jennifer Freire MD Comp Metabolic Profon 2023 Albumin [Mass/Vol] 4.7 g/dL Normal 3.5-5.2 [facility] Comment on above: Performed By: #### C P, CDP #### [facility] [address] [place] [address] [employer]: Jennifer Freire MD Alkaline Phos 92 U/L Normal 35-104 [facility] Comment on above: Performed By: #### C P, CDP #### [facility] [address] [place] [address] [employer]: Jennifer Freire MD ALT [Catalytic activity/Vol] 16 U/L Normal 5-33 [facility] Comment on above: Performed By: #### C P, CDP #### [facility] [address] [place] [address] [employer]: Jennifer Freire MD Anion gap [Moles/Vol] 14 mmol/L Normal 9-17 [facility] Comment on above: Performed By: #### C P, CDP #### [facility] [address] [place], [place] [id number] [employer]: Jennifer Freire MD AST [Catalytic activity/Vol] 17 U/L Normal <32 [facility] Comment on above: Performed By: #### C P, CDP #### [facility] [address] [place] [address] [employer]: Jennifer Freire MD Bilirubin [Mass/Vol] 0.2 mg/dL Low 0.3-1.2 [facility] Comment on above: Performed By: #### C P, CDP #### [facility] [address] [place] [address] [employer]: Jennifer Freire MD BUN/CRE Ratio 9 Normal 9-20 [facility] Comment on above: Performed By: #### C P, CDP #### [facility] [address] [place] [address] [employer]: Jennifer Freire MD Calcium [Mass/Vol] 9.9 mg/dL Normal 8.6-10.4 [facility] Comment on above: Performed By: #### C P, CDP #### [facility] [address] [place], [place] [id number] [employer]: Jennifer Freire MD Chloride [Moles/Vol] 106 mmol/L Normal 98-107 [facility] Comment on above: Performed By: #### C P, CDP #### [facility] [address] [place], [place] [id number] [employer]: Jennifer Freire MD CO2 [Moles/Vol] 22 mmol/L Normal 20-31 [facility] Comment on above: Performed By: #### C P, CDP #### [facility] [address] [place] [address] [employer]: Jennifer Freire MD Creatinine [Mass/Vol] 0.8 mg/dL Normal 0.5-0.9 [facility] Comment on above: Performed By: #### C P, CDP #### [facility] [address] [place], [place] [id number] [employer]: Jennifer Freire MD GFR/1.73 sq M.predicted among non-blacks MDRD (S/P/Bld) [Vol rate/Area] mL/min/{1.73_m2} Normal >60 [facility] Comment on above: Result Comment: These [...] Performed By: #### C P, CDP #### [facility] [address] [place] [address] [employer]: Jennifer Freire MD Glucose [Mass/Vol] 93 mg/dL Normal 70-99 [facility] Comment on above: Performed By: #### C P, CDP #### [facility] [address] [place] [address] [employer]: Jennifer Freire MD Potassium [Moles/Vol] 3.7 mmol/L Normal 3.7-5.3 [facility] Comment on above: Performed By: #### C P, CDP #### [facility] [address] [place], [place] [id number] [employer]: Jennifer Freire MD Protein [Mass/Vol] 8.3 g/dL Normal 6.4-8.3 [facility] Comment on above: Performed By: #### C P, CDP #### [facility] [address] [place] [address] [employer]: Jennifer Freire MD Sodium [Moles/Vol] 142 mmol/L Normal 135-144 [facility] Comment on above: Performed By: #### C P, CDP #### [facility] [address] [place] [address] [employer]: Jennifer Freire MD Urea nitrogen [Mass/Vol] 7 mg/dL Normal 6-20 [facility] Comment on above: Performed By: #### C P, CDP #### [facility] [address] [place] [address] [employer]: Jennifer Freire MD Surgical Pathology [facility] Surgical Pathology Normal [facility] Comment on above: Result Comment: [facility] [employer] [address] [place] [address] Surgical Pathology Consultation Patient Name:ANTONIA NOYOLA:1985 (Age: 39)Gender:FTaken:04/06/2024eported:04/17/2024hysician(s):Adiel Aparicio M.D. ([phone])Copy To: Rec. #:[id number]: #[id number] Final Pathologic Diagnosis Uterus, cervix, bilateral fallopian tubes, and bilateral ovaries, TAHBSO: Cervix, negative for dysplasia Inactive endometrium with benign endometrial polyp Bilateral ovaries with endometriosis/endometrioma Unremarkable fallopian tubes Report Electronically Signed Out justenk/04/17/2024Evelin Joshi MD Interpretation performed at [facility], [address] [place] [address], License number: [id number]. Clinical History Endometriosis/ pelvic pain. Gross Description [...] entirely filled with red-brown, hemorrhagic turbid fluid [employer] sections are submitted in cassettes A-L, as: A anterior cervix B posterior cervix C anterior uterine wall D anterior endomyometrium E posterior uterine wall with whirled nodule F posterior endomyometrium G right fallopian tube with entire fimbriated end H-I right ovary J left fallopian tube with entire fimbriated end K-L left ovary (12, ss, [id number], m6) MW mxw/04/06/2024[facility] Specimen(s) Received Uterus, cervix, bilateral fallopian tubes, and bilateral ovaries Fee Codes(s): 1; 88365 CBC AND AUTO DIFFon 10-24-20 24 ABSOLUTE BASOPHIL 0.1 X10E9/L Normal 0.0-0.2 [facility] Comment on above: Performed By: #### N UM #### [facility] ([id number]) [address] [place] [address] 42328 ABSOLUTE NEUTROPHIL 4.5 X10E9/L Normal 1.5-6.6 [facility] Comment on above: Performed By: #### N UM #### [facility] ([id number]) [address] [place] [address] 91580 Basophils/100 WBC (Bld) 1.1 % Normal [facility] Comment on above: Performed By: #### N UM #### [facility] ([id number]) [address] [place] [address] 49212 Eosinophils (Bld) [#/Vol] 0.0 10*3/uL Normal 0.0-0.4 [facility] Comment on above: Performed By: #### N UM #### [facility] ([id number]) [address] [place] [address] 04093 Eosinophils/100 WBC (Bld) 0.5 % Normal [facility] Comment on above: Performed By: #### N UM #### [facility] ([id number]) [address] [place] [address] 06697 Erythrocyte distribution width (RBC) [Ratio] 18.3 % High 11.5-15.0 [facility] Comment on above: Performed By: #### N UM #### [facility] ([id number]) [address] [place] [address] 54430 Hematocrit (Bld) [Volume fraction] 32.1 % Low 35-47 [facility] Comment on above: Performed By: #### N UM #### [facility] ([id number]) [address] [place] [address] 64556 Hemoglobin (Bld) [Mass/Vol] 10.2 g/dL Low 11.7-15.5 [facility] Comment on above: Performed By: #### N UM #### [facility] ([id number]) [address] [place] [address] 31997 Lymphocytes (Bld) [#/Vol] 2.5 10*3/uL Normal 1.0-3.5 [facility] Comment on above: Performed By: #### N UM #### [facility] ([id number]) [address] [place] [address] 02309 Lymphocytes/100 WBC (Bld) 33.1 % Normal [facility] Comment on above: Performed By: #### N UM #### [facility] ([id number]) [address] [place] [address] 15822 MCH (RBC) [Entitic mass] 22.6 pg Low 27-34 [facility] Comment on above: Performed By: #### N UM #### [facility] ([id number]) [address] [place] [address] 34436 MCHC (RBC) [Mass/Vol] 31.7 g/dL Low 32-36 [facility] Comment on above: Performed By: #### N UM #### [facility] ([id number]) [address] [place] [address] 14926 MCV (RBC) [Entitic vol] 71 fL Low 80-100 [facility] Comment on above: Performed By: #### N UM #### [facility] ([id number]) [address] [place] [address] 80691 Monocytes (Bld) [#/Vol] 0.5 10*3/uL Normal 0-0.9 [facility] Comment on above: Performed By: #### N UM #### [facility] ([id number]) [address] [place] [address] 06458 Monocytes/100 WBC (Bld) 6.2 % Normal [facility] Comment on above: Performed By: #### N UM #### [facility] ([id number]) [address] [place] [address] 12392 Neutrophils/100 WBC (Bld) 59.1 % Normal [facility] Comment on above: Performed By: #### N UM #### [facility] ([id number]) [address] [place] [address] 89934 Platelet mean volume (Bld) [Entitic vol] 7.6 fL Normal 7-12 [facility] Comment on above: Performed By: #### N UM #### [facility] ([id number]) [address] [place] [address] 07340 Platelets (Bld) [#/Vol] 582 10*3/uL High 150-450 [facility] Comment on above: Performed By: #### N UM #### [facility] ([id number]) [address] [place] [address] 37684 RBC COUNT 4.51 X10E12/L Normal 3.80-5.20 [facility] Comment on above: Performed By: #### N UM #### [facility] ([id number]) [address] [place] [address] 75857 WBC (Bld) [#/Vol] 7.7 10*3/uL Normal 4.0-11.0 [facility] Comment on above: Performed By: #### N UM #### [facility] ([id number]) [address] [place] [address] [place] [address] COMPREHENSIVE METABOLIC PANE Van 04-05-2024 Albumin [Mass/Vol] 4.3 g/dL Normal 3.2-5.3 [facility] Comment on above: Performed By: #### N UM #### [facility] ([id number]) [address] [place] [address] [place] [address] ALP [Catalytic activity/Vol] 65 U/L Normal 39-130 [facility] Comment on above: Performed By: #### N UM #### [facility] ([id number]) [address] [place] [address] 85503 ALT [Catalytic activity/Vol] 20 U/L Normal 0-31 [facility] Comment on above: Performed By: #### N UM #### [facility] ([id number]) [address] [place] [address] 92681 Anion gap [Moles/Vol] 8 mmol/L Normal 5-15 [facility] Comment on above: Performed By: #### N UM #### [facility] ([id number]) [address] [place] [address] 07340 AST [Catalytic activity/Vol] 24 U/L Normal 0-41 [facility] Comment on above: Performed By: #### N UM #### [facility] ([id number]) [address] [place] [address] [place] [address] Bilirubin [Mass/Vol] 0.8 mg/dL Normal 0.3-1.2 [facility] Comment on above: Performed By: #### N UM #### [facility] ([id number]) [address] [place] [address] 33683 Calcium [Mass/Vol] 8.9 mg/dL Normal 8.5-10.5 [facility] Comment on above: Performed By: #### N UM #### [facility] ([id number]) [address] [place] [address] 95471 Chloride [Moles/Vol] 104 mmol/L Normal 98-109 [facility] Comment on above: Performed By: #### N UM #### [facility] ([id number]) [address] [place] [address] 45804 CO2 [Moles/Vol] 22 mmol/L Normal 22-32 [facility] Comment on above: Performed By: #### N UM #### [facility] ([id number]) [address] [place] [address] 60343 Creatinine [Mass/Vol] 0.62 mg/dL Normal 0.40-1.00 [facility] Comment on above: Result Comment: METH OD TRACEABLE TO IDMS STANDARD Performed By: #### N UM #### [facility] ([id number]) [address] [place] [address] 38496 eGFR (CKD-EPI) NON-RACE DEPENDENT >90 Normal >59 [facility] Comment on above: Result Comment: Reported eGFR is based on the CKD-EPI 1 equation that does not use a race coefficient. Performed By: #### N UM #### [facility] ([id number]) [address] [place] [address] 72656 Glucose [Mass/Vol] 107 mg/dL High 65-99 [facility] Comment on above: Performed By: #### N UM #### [facility] ([id number]) [address] [place] [address] 76542 Potassium [Moles/Vol] 3.7 mmol/L Normal 3.5-5.0 [facility] Comment on above: Performed By: #### N UM #### [facility] ([id number]) [address] [place] [address] 19788 Protein [Mass/Vol] 8.0 g/dL Normal 6.0-8.0 [facility] Comment on above: Performed By: #### N UM #### [facility] ([id number]) [address] [place] [address] 90856 Sodium [Moles/Vol] 134 mmol/L Normal 134-146 [facility] Comment on above: Performed By: #### N UM #### [facility] ([id number]) [address] [place] [address] 03601 Urea nitrogen [Mass/Vol] 8 mg/dL Normal 5-23 [facility] Comment on above: Performed By: #### N UM #### [facility] ([id number]) [address] [place] [address] ABDOMEN AND PELVIS WO CON Ton [...] Atwood MD on 04/05/2024 3:57 PM Normal [facility] HCG ( test) Ql (U)o n 04-05-2024 Beta HCG ( test) Ql (U) Negative Normal NEG [facility] Comment on above: Performed By: #### N UM #### [facility] ([id number]) [address] [place] [address] 14121 LIPASEon 04-05-2024 Lipase [Catalytic activity/Vol] 30 U/L Normal 17-40 [facility] Comment on above: Performed By: #### N UM #### [facility] ([id number]) [address] [place] [address] 13350 Lactate (P arely) [Moles/Vol]o n 04-05-2024 LACTATE W/REFLEX 1.7 mmol/L Normal 0.4-2.0 [facility] Comment on above: Result Comment: Result did not trigger repeat Lactate, re-order if needed. Performed By: #### N UM #### [facility] ([id number]) [address] [place] [address] 21340 URN MACROSCOPIC NURon 2023 BILIRUBIN AUDREY Negative Normal NEG [facility] Comment on above: Performed By: #### N UM #### [facility] ([id number]) [address] [place] [address] 06527 BLOOD/HGB AUDREY Negative Normal NEG [facility] Comment on above: Performed By: #### N UM #### [facility] ([id number]) [address] [place] [address] 56575 GLUCOSE AUDREY Negative Normal NEG [facility] Comment on above: Performed By: #### N UM #### [facility] ([id number]) [address] [place] [address] 19880 KETONES AUDREY Negative Normal NEG [facility] Comment on above: Performed By: #### N UM #### [facility] ([id number]) [address] [place] [address] [place] [address] LEUKOCYTE ESTERASE AUDREY Negative Normal NEG [facility] Comment on above: Performed By: #### N UM #### [facility] ([id number]) [address] [place] [address] [place] [address] NITRITE AUDREY Negative Normal NEG [facility] Comment on above: Performed By: #### N UM #### [facility] ([id number]) [address] [place] [address] PH AUDREY 7.0 Normal 5.0-8.5 [facility] Comment on above: Performed By: #### N UM #### [facility] ([id number]) [address] [place] [address] 58493 PROTEIN AUDREY Negative Normal NEG [facility] Comment on above: Performed By: #### N UM #### [facility] ([id number]) [address] [place] [address] 25291 SPECIFIC GRAVITY AUDREY 1.010 Normal 1.003-1.035 [facility] Comment on above: Performed By: #### N UM #### [facility] ([id number]) [address] [place] [address] 81057 UROBILINOGEN AUDREY 0.2 eu/dL Normal <1.1 [facility] Comment on above: Performed By: #### N UM #### [facility] ([id number]) [address] [place] [address] 479[address] US PELVIC WITH TRANSVAGINAL AND DUPLEXon 04-05-2024 [...] Martinez MD on 04/05/2024 3:03 PM Normal [facility] CBC AND AUTO DIFFon 03-28-20 ABSOLUTE BASOPHIL 0.1 X10E9/L Normal 0.0-0.2 [facility] Comment on above: Performed By: #### C BCA, CMP #### [facility] ([id number]) [address], [address] [place] [address] ABSOLUTE NEUTROPHIL 2.4 X10E9/L Normal 1.5-6.6 [facility] Comment on above: Performed By: #### C BCA, CMP #### [facility] ([id number]) [address] [place] [address] Basophils/100 WBC (Bld) 1.1 % Normal [facility] Comment on above: Performed By: #### C BCA, CMP #### [facility] ([id number]) [address], [address] [place] [address] Eosinophils (Bld) [#/Vol] 0.1 10*3/uL Normal 0.0-0.4 [facility] Comment on above: Performed By: #### C BCA, CMP #### [facility] ([id number]) [address], [address] [place] [address] Eosinophils/100 WBC (Bld) 2.7 % Normal [facility] Comment on above: Performed By: #### C BCA, CMP #### [facility] ([id number]) [address], [address] [place] [address] Erythrocyte distribution width (RBC) [Ratio] 18.7 % High 11.5-15.0 [facility] Comment on above: Performed By: #### C HEATH, CMP #### [facility] ([id number]) [address], [address] [place] [address] Hematocrit (Bld) [Volume fraction] 31.3 % Low 35-47 [facility] Comment on above: Performed By: #### C BCA, CMP #### [facility] ([id number]) [address], [address] [place] [address] Hemoglobin (Bld) [Mass/Vol] 9.9 g/dL Low 11.7-15.5 [facility] Comment on above: Performed By: #### C BCA, CMP #### [facility] ([id number]) [address], [address] [place] [address] Lymphocytes (Bld) [#/Vol] 2.2 10*3/uL Normal 1.0-3.5 [facility] Comment on above: Performed By: #### C BCA, CMP #### [facility] ([id number]) [address], [address] [place] [address] Lymphocytes/100 WBC (Bld) 42.4 % Normal [facility] Comment on above: Performed By: #### C BCA, CMP #### [facility] ([id number]) [address], [address] [place] [address] MCH (RBC) [Entitic mass] 23.2 pg Low 27-34 [facility] Comment on above: Performed By: #### C BCA, CMP #### [facility] ([id number]) [address], [address] [place] [address] MCHC (RBC) [Mass/Vol] 31.7 g/dL Low 32-36 [facility] Comment on above: Performed By: #### C BCA, CMP #### [facility] ([id number]) [address], [address] [place] [address] MCV (RBC) [Entitic vol] 73 fL Low 80-100 P [facility] Comment on above: Performed By: #### C BCA, CMP #### [facility] ([id number]) [address], [address] [place] [address] Monocytes (Bld) [#/Vol] 0.4 10*3/uL Normal 0-0.9 [facility] Comment on above: Performed By: #### C HEATH, CMP #### [facility] ([id number]) [address], [address] [place] [address] Monocytes/100 WBC (Bld) 7.9 % Normal [facility] Comment on above: Performed By: #### C HEATH, CMP #### [facility] ([id number]) [address], [address] [place] [address] Neutrophils/100 WBC (Bld) 45.9 % Normal [facility] Comment on above: Performed By: #### C HEATH, CMP #### [facility] ([id number]) [address], [address] [place] [address] Platelet mean volume (Bld) [Entitic vol] 8.0 fL Normal 7-12 [facility] Comment on above: Performed By: #### C HEATH, CMP #### [facility] ([id number]) [address], [address] [place] [address] Platelets (Bld) [#/Vol] 457 10*3/uL High 150-450 [facility] Comment on above: Performed By: #### C HEATH, CMP #### [facility] ([id number]) [address], [address] [place] [address] RBC COUNT 4.28 X10E12/L Normal 3.80-5.20 [facility] Comment on above: Performed By: #### C BCA, CMP #### [facility] ([id number]) [address], [address] [place] [address] WBC (Bld) [#/Vol] 5.2 10*3/uL Normal 4.0-11.0 [facility] Comment on above: Performed By: #### C BCA, CMP #### [facility] ([id number]) [address], [address] [place] [address] CBC auto differentialon 03-13 Basophils (Bld) [#/Vol] 0.1 10*3/uL [facility] Basophils/100 WBC (Bld) 1.1 % [facility] Eosinophils (Bld) [#/Vol] 0.1 10*3/uL [facility] Eosinophils/100 WBC (Bld) 2.7 % [facility] Erythrocyte distribution width (RBC) [Ratio] 18.7 % High 11.5 - 15.0 % [facility] Hematocrit (Bld) [Volume fraction] 31.3 % Low 35 - 47 % [facility] Hemoglobin (Bld) [Mass/Vol] 9.9 g/dL Low 11.7 - 15.5 g/dL [facility] Interpretation and review of laboratory results Abnormal [facility] Lymphocytes (Bld) [#/Vol] 2.2 10*3/uL [facility] Lymphocytes/100 WBC (Bld) 42.4 % [facility] MCH (RBC) [Entitic mass] 23.2 pg Low 27 - 34 pg [facility] MCHC (RBC) [Mass/Vol] 31.7 g/dL Low 32 - 3 6 g/dL [facility] MCV (RBC) [Entitic vol] 73 fL Low 80 - 100 fL [facility] Monocytes (Bld) [#/Vol] 0.4 10*3/uL [facility] Monocytes/100 WBC (Bld) 7.9 % [facility] Neutrophils (Bld) [#/Vol] 2.4 10*3/uL [facility] Neutrophils/100 WBC (Bld) 45.9 % [facility] Platelet mean volume (Bld) [Entitic vol] 8 fL 7 - 12 fL [facility] Platelets (Bld) [#/Vol] 457 10*3/uL High [facility] RBC (Bld) [#/Vol] 4.28 10*6/uL [facility] WBC corrected for nucl RBC Auto (Bld) [#/Vol] 5.2 [facility] COMPREHENSIVE METABOLIC PANE Van 03-28-2024 Albumin [Mass/Vol] 4.0 g/dL Normal 3.2-5.3 [facility] Comment on above: Performed By: #### C HEATH, CMP #### [facility] ([id number]) [address], [address] [place] [address] ALP [Catalytic activity/Vol] 61 U/L Normal 39-130 [facility] Comment on above: Performed By: #### C HEATH, CMP #### [facility] ([id number]) [address], [address] [place] [address] ALT [Catalytic activity/Vol] 12 U/L Normal 0-31 [facility] Comment on above: Performed By: #### C BCA, CMP #### [facility] ([id number]) [address], [address] [place] [address] Anion gap [Moles/Vol] 10 mmol/L Normal 5-15 [facility] Comment on above: Performed By: #### C BCA, CMP #### [facility] ([id number]) [address], [address] [place] [address] AST [Catalytic activity/Vol] 14 U/L Normal 0-41 [facility] Comment on above: Performed By: #### C BCA, CMP #### [facility] ([id number]) [address], [address] [place] [address] Bilirubin [Mass/Vol] 0.3 mg/dL Normal 0.3-1.2 [facility] Comment on above: Performed By: #### C BCA, CMP #### [facility] ([id number]) [address], [address] [place] [address] Calcium [Mass/Vol] 9.0 mg/dL Normal 8.5-10.5 [facility] Comment on above: Performed By: #### C BCA, CMP #### [facility] ([id number]) [address], [address] [place] [address] Chloride [Moles/Vol] 107 mmol/L Normal 98-109 [facility] Comment on above: Performed By: #### C BCA, CMP #### [facility] ([id number]) [address], [address] [place] [address] CO2 [Moles/Vol] 24 mmol/L Normal 22-32 [facility] Comment on above: Performed By: #### C BCA, CMP #### [facility] ([id number]) [address], [address] [place] [address] Creatinine [Mass/Vol] 0.72 mg/dL Normal 0.40-1.00 [facility] Comment on above: Result Comment: METH OD TRACEABLE TO IDMS STANDARD Performed By: #### C BCA, CMP #### [facility] ([id number]) [address], [address] [place] [address] eGFR (CKD-EPI) NON-RACE DEPENDENT >90 Normal >59 [facility] Comment on above: Result Comment: Reported eGFR is based on the CKD-EPI 2020 equation that does not use a race coefficient. Performed By: #### C BCA, CMP #### [facility] ([id number]) [address], [address] [place] [address] Glucose [Mass/Vol] 101 mg/dL High 65-99 [facility] Comment on above: Performed By: #### C BCA, CMP #### [facility] ([id number]) [address], [address] [place] [address] Potassium [Moles/Vol] 3.9 mmol/L Normal 3.5-5.0 [facility] Comment on above: Performed By: #### C BCA, CMP #### [facility] ([id number]) [address], [address] [place] [address] Protein [Mass/Vol] 6.9 g/dL Normal 6.0-8.0 [facility] Comment on above: Performed By: #### C BCA, CMP #### [facility] ([id number]) [address], [address] [place] [address] Sodium [Moles/Vol] 141 mmol/L Normal 134-146 [facility] Comment on above: Performed By: #### C BCA, CMP #### [facility] ([id number]) [address], [address] [place] [address] Urea nitrogen [Mass/Vol] 10 mg/dL Normal 5-23 [facility] Comment on above: Performed By: #### C BCA, CMP #### [facility] ([id number]) [address], [address] [place] [address] Comprehensive metabolic pane [facility] 03-28-2024 Albumin [Mass/Vol] 4 g/dL 3.2 - 5.3 g/dL [facility] ALP [Catalytic activity/Vol] 61 U/L 39 - 130 U/L [facility] ALT No additional P-5'-P [Catalytic activity/Vol] 12 U/L 0 - 31 U/L [facility] Anion gap [Moles/Vol] 10 mmol/L 5 - 15 mmol/L [facility] AST [Catalytic activity/Vol] 14 U/L 0 - 41 U/L [facility] Bilirubin [Mass/Vol] 0.3 mg/dL 0.3 - 1 .2 mg/dL [facility] Calcium [Mass/Vol] 9 mg/dL 8.5 - 10. 5 mg/dL [facility] Chloride [Moles/Vol] 107 mmol/L 98 - 10 9 mmol/L [facility] CO2 [Moles/Vol] 24 mmol/L 22 - 32 mmol/L [facility] Creatinine [Mass/Vol] 0.72 mg/dL 0.40 - 1.00 mg/dL [facility] Comment on above: METHOD TRACEABLE TO IDGA STANDARD eGFR (CKD-EPI)non-race dependent - PINF [facility] Comment on above: Reported eGFR is based on the CKD-EPI 2020 equation that does not use a race coefficient. Glucose [Mass/Vol] 101 mg/dL High 65 - 99 mg/dL [facility] Interpretation and review of laboratory results Abnormal [facility] Potassium [Moles/Vol] 3.9 mmol/L 3.5 - 5.0 mmol/L [facility] Protein [Mass/Vol] 6.9 g/dL 6.0 - 8.0 g/dL [facility] Sodium [Moles/Vol] 141 mmol/L 134 - 146 mmol/L [facility] Urea nitrogen [Mass/Vol] 10 mg/dL 5 - 23 mg/dL [facility] CBC AND AUTO DIFFon 03-07-20 ABSOLUTE BASOPHIL 0.1 X10E9/L Normal 0.0-0.2 [facility] Comment on above: Performed By: #### N UM #### [facility] ([id number]) [address] [place] [address] 150[address] ABSOLUTE NEUTROPHIL 3.0 X10E9/L Normal 1.5-6.6 [facility] Comment on above: Performed By: #### N UM #### [facility] ([id number]) [address] [place] [address] Basophils/100 WBC (Bld) 1.1 % Normal P [facility] Comment on above: Performed By: #### N UM #### [facility] ([id number]) [address] [place] [address] 40154 Eosinophils (Bld) [#/Vol] 0.1 10*3/uL Normal 0.0-0.4 [facility] Comment on above: Performed By: #### N UM #### [facility] ([id number]) [address] [place] [address] 034[address] Eosinophils/100 WBC (Bld) 1.0 % Normal [facility] Comment on above: Performed By: #### N UM #### [facility] ([id number]) [address] [place] [address] 674[address] Erythrocyte distribution width (RBC) [Ratio] 17.6 % High 11.5-15.0 [facility] Comment on above: Performed By: #### N UM #### [facility] ([id number]) [address] [place] [address] Hematocrit (Bld) [Volume fraction] 34.1 % Low 35-47 [facility] Comment on above: Performed By: #### N UM #### [facility] ([id number]) [address] [place] [address] Hemoglobin (Bld) [Mass/Vol] 10.9 g/dL Low 11.7-15.5 [facility] Comment on above: Performed By: #### N UM #### [facility] ([id number]) [address] [place] [address] Lymphocytes (Bld) [#/Vol] 2.0 10*3/uL Normal 1.0-3.5 [facility] Comment on above: Performed By: #### N UM #### [facility] ([id number]) [address] [place] [address] 93766 Lymphocytes/100 WBC (Bld) 36.4 % Normal [facility] Comment on above: Performed By: #### N UM #### [facility] ([id number]) [address] [place] [address] MCH (RBC) [Entitic mass] 22.7 pg Low 27-34 [facility] Comment on above: Performed By: #### N UM #### [facility] ([id number]) [address] [place] [address]60[address] MCHC (RBC) [Mass/Vol] 31.8 g/dL Low 32-36 [facility] Comment on above: Performed By: #### N UM #### [facility] ([id number]) [address] [place] [address] MCV (RBC) [Entitic vol] 71 fL Low 80-100 P [facility] Comment on above: Performed By: #### N UM #### [facility] ([id number]) [address] [place] [address] 700[address] Monocytes (Bld) [#/Vol] 0.4 10*3/uL Normal 0-0.9 [facility] Comment on above: Performed By: #### N UM #### [facility] ([id number]) [address] [place] [address] 90965 Monocytes/100 WBC (Bld) 6.9 % Normal [facility] Comment on above: Performed By: #### N UM #### [facility] ([id number]) [address] [place] [address] 34567 Neutrophils/100 WBC (Bld) 54.6 % Normal [facility] Comment on above: Performed By: #### N UM #### [facility] ([id number]) [address] [place] [address] 59[address] Platelet mean volume (Bld) [Entitic vol] 7.7 fL Normal 7-12 [facility] Comment on above: Performed By: #### N UM #### [facility] ([id number]) [address] [place] [address] 23212 Platelets (Bld) [#/Vol] 514 10*3/uL High 150-450 [facility] Comment on above: Performed By: #### N UM #### [facility] ([id number]) [address] [place] [address] 73641 RBC COUNT 4.78 X10E12/L Normal 3.80-5.20 [facility] Comment on above: Performed By: #### N UM #### [facility] ([id number]) [address] [place] [address] WBC (Bld) [#/Vol] 5.5 10*3/uL Normal 4.0-11.0 [facility] Comment on above: Performed By: #### N UM #### [facility] ([id number]) [address] [place] [address] 488[address] COMPREHENSIVE METABOLIC PANE Van 03-07-2024 Albumin [Mass/Vol] 4.5 g/dL Normal 3.2-5.3 [facility] Comment on above: Performed By: #### N UM #### [facility] ([id number]) [address] [place] [address] ALP [Catalytic activity/Vol] 64 U/L Normal 39-130 [facility] Comment on above: Performed By: #### N UM #### [facility] ([id number]) [address] [place] [address] 05657 ALT [Catalytic activity/Vol] 18 U/L Normal 0-31 [facility] Comment on above: Performed By: #### N UM #### [facility] ([id number]) [address] [place] [address] 98438 Anion gap [Moles/Vol] 8 mmol/L Normal 5-15 [facility] Comment on above: Performed By: #### N UM #### [facility] ([id number]) [address] [place] [address] 41606 AST [Catalytic activity/Vol] 19 U/L Normal 0-41 [facility] Comment on above: Performed By: #### N UM #### [facility] ([id number]) [address] [place] [address] [id number] Bilirubin [Mass/Vol] 0.7 mg/dL Normal 0.3-1.2 [facility] Comment on above: Performed By: #### N UM #### [facility] ([id number]) [address] [place] [address] [id number] Calcium [Mass/Vol] 9.4 mg/dL Normal 8.5-10.5 [facility] Comment on above: Performed By: #### N UM #### [facility] ([id number]) [address] [place] [address] [id number] Chloride [Moles/Vol] 105 mmol/L Normal 98-109 [facility] Comment on above: Performed By: #### N UM #### [facility] ([id number]) [address] [place] [address] [id number] CO2 [Moles/Vol] 21 mmol/L Low 22-32 [facility] Comment on above: Performed By: #### N UM #### [facility] ([id number]) [address] [place] [address] 33876 Creatinine [Mass/Vol] 0.68 mg/dL Normal 0.40-1.00 [facility] Comment on above: Result Comment: METH OD TRACEABLE TO IDMS STANDARD Performed By: #### N UM #### [facility] ([id number]) [address] [place] [address] 07352 eGFR (CKD-EPI) NON-RACE DEPENDENT >90 Normal >59 [facility] Comment on above: Result Comment: Reported eGFR is based on the CKD-EPI 2020 equation that does not use a race coefficient. Performed By: #### N UM #### [facility] ([id number]) [address] [place] [address] 33759 Glucose [Mass/Vol] 107 mg/dL High 65-99 [facility] Comment on above: Performed By: #### N UM #### [facility] ([id number]) [address] [place] [address] 34169 Potassium [Moles/Vol] 3.8 mmol/L Normal 3.5-5.0 [facility] Comment on above: Performed By: #### N UM #### [facility] ([id number]) [address] [place] [address] 30942 Protein [Mass/Vol] 8.6 g/dL High 6.0-8.0 [facility] Comment on above: Performed By: #### N UM #### [facility] ([id number]) [address] [place] [address] 20911 Sodium [Moles/Vol] 134 mmol/L Normal 134-146 [facility] Comment on above: Performed By: #### N UM #### [facility] ([id number]) [address] [place] [address] 29118 Urea nitrogen [Mass/Vol] 10 mg/dL Normal 5-23 [facility] Comment on above: Performed By: #### N UM #### [facility] ([id number]) [address] [place] [address] 33885 HCG ( test) Ql (U)o n 03-07-2024 Beta HCG ( test) Ql (U) Negative Normal NEG [facility] Comment on above: Performed By: #### C BCA, CMP #### [facility] ([id number]) [address] [place] [address] 08648 URN MACROSCOPIC NURon 2023 BILIRUBIN AUDREY Negative Normal NEG [facility] Comment on above: Performed By: #### C BCA, CMP #### [facility] ([id number]) [address] [place] [address] [place] [address] BLOOD/HGB AUDREY Trace Abnormal NEG [facility] Comment on above: Performed By: #### C BCA, CMP #### [facility] ([id number]) [address] [place] [address] GLUCOSE AUDREY Negative Normal NEG [facility] Comment on above: Performed By: #### C BCA, CMP #### [facility] ([id number]) [address] [place] [address] [place] [address] KETONES AUDREY Negative Normal NEG [facility] Comment on above: Performed By: #### C BCA, CMP #### [facility] ([id number]) [address] [place] [address]160 LEUKOCYTE ESTERASE AUDREY Negative Normal NEG Pr [facility] Comment on above: Performed By: #### C BCA, CMP #### [facility] ([id number]) [address] [place] [address] [place] [address] NITRITE AUDREY Negative Normal NEG [facility] Comment on above: Performed By: #### C BCA, CMP #### [facility] ([id number]) [address] [place] [address] [place] [address] PH AUDREY 6.0 Normal 5.0-8.5 [facility] Comment on above: Performed By: #### C BCA, CMP #### [facility] ([id number]) [address] [place] [address] [place] [address] PROTEIN AUDREY Negative Normal NEG [facility] Comment on above: Performed By: #### C BCA, CMP #### [facility] ([id number]) [address] [place] [address] [place] [address] SPECIFIC GRAVITY AUDREY 1.010 Normal 1.003-1.035 [facility] Comment on above: Performed By: #### C BCA, CMP #### [facility] ([id number]) [address] [facility] [place] [facility] [place] [address] UROBILINOGEN AUDREY 0.2 eu/dL Normal <1.1 [facility] Comment on above: Performed By: #### C BCA, CMP #### [facility] ([id number]) [address] [facility] [place] [facility] [place] [place] [address] CBCon 02-24-2024 ABSOLUTE BAS 0.1 10*3/uL Normal 0.0-0.2 [facility] ABSOLUTE EOS 0.2 10*3/uL Normal 0.0-0.7 [facility] ABSOLUTE NEUTROPHIL COUNT 3.2 10*3/uL Normal 1.4-6.5 [facility] Basophils/100 WBC (Bld) 0.7 % Normal 0.0-2.0 [facility] DTYPE AUTO DIFF Normal [facility] Eosinophils/100 WBC (Bld) 2.3 % Normal 0.0-11.0 [facility] Lymphocytes (Bld) [#/Vol] 3.5 10*3/uL High 1.2-3.4 [facility] Lymphocytes/100 WBC (Bld) 47.1 % Normal 20.0-55.0 [facility] Monocytes (Bld) [#/Vol] 0.5 10*3/uL Normal 0.0-0.7 [facility] Monocytes/100 WBC (Bld) 7.4 % Normal 0.0-10.0 [facility] Neutrophils/100 WBC (Bld) 42.5 % Normal 37.0-75.0 [facility] Erythrocyte distribution width (RBC) [Ratio] 17.1 % High 11.5-14.5 [facility] Hematocrit (Bld) [Volume fraction] 33.6 % Low 36.0-48.0 [facility] Hemoglobin (Bld) [Mass/Vol] 10.3 g/dL Low 12.0-16.0 [facility] MCH (RBC) [Entitic mass] 22.7 pg Low 26.0-35.0 [facility] MCHC (RBC) [Mass/Vol] 30.8 g/dL Normal 27.0-37.0 [facility] MCV (RBC) [Entitic vol] 73.5 fL Low 80.0-100.0 [facility] Platelet mean volume (Bld) [Entitic vol] 7.9 fL Normal 7.4-11.0 [facility] Platelets (Bld) [#/Vol] 466 10*3/uL High 130-400 [facility] RBC (Bld) [#/Vol] 4.57 10*6/uL Normal 4.0-5.4 [facility] WBC (Bld) [#/Vol] 7.4 10*3/uL Normal 3.6-11.0 [facility] CBC, EDIF, PLATELETon 2023 ABSOLUTE BASOPHIL COUNT 0.1 10*3/uL 0.0 - 0.2 10*3/uL [facility] Basophils/100 WBC (Bld) 0.7 % 0.0 - 2.0 % [facility] Differential cell count method Nom (Bld) AUTO DIFF % [facility] Eosinophils (Bld) [#/Vol] 0.2 10*3/uL 0.0 - 0.7 10*3/uL [facility] Eosinophils/100 WBC (Bld) 2.3 % 0.0 - 11.0 % [facility] Erythrocyte distribution width (RBC) [Ratio] 17.1 % High 11.5 - 14.5 % [facility] Hematocrit (Bld) [Volume fraction] 33.6 % Low 36.0 - 48.0 % [facility] Hemoglobin (Bld) [Mass/Vol] 10.3 g/dL Low [facility] Interpretation and review of laboratory results Abnormal [facility] Lymphocytes (Bld) [#/Vol] 3.5 10*3/uL High 1.2 - 3.4 10*3/uL [facility] Lymphocytes/100 WBC (Bld) 47.1 % 20.0 - 55.0 % [facility] MCH (RBC) [Entitic mass] 22.7 pg Low 26.0 - 35.0 PG [facility] MCHC (RBC) [Mass/Vol] 30.8 g/dL [facility] MCV (RBC) [Entitic vol] 73.5 fL Low A [facility] Monocytes (Bld) [#/Vol] 0.5 10*3/uL 0.0 - 0.7 10*3/uL [facility] Monocytes/100 WBC (Bld) 7.4 % 0.0 - 10.0 % [facility] Neutrophils (Bld) [#/Vol] 3.2 10*3/uL 1.4 - 6.5 10*3/uL [facility] Neutrophils/100 WBC (Bld) 42.5 % 37.0 - 75.0 % [facility] Platelet mean volume (Bld) [Entitic vol] 7.9 fL [facility] Platelets (Bld) [#/Vol] 466 10*3/uL High 130 - 400 10*3/uL [facility] RBC (Bld) [#/Vol] 4.57 10*6/uL 4.0 - 5.4 10*6/uL [facility] WBC (Bld) [#/Vol] 7.4 10*3/uL 3.6 - 11.0 10*3/uL [facility] CMP FASTINGon 02-24-2024 A:G RATIO 1.1 RATIO Low 1.3-2.2 [facility] ALBUMIN 4.1 G/dl Normal 3.5-5.0 [facility] ALP [Catalytic activity/Vol] 62 U/L Normal 38-126 [facility] ALT [Catalytic activity/Vol] 23 U/L Normal <35 [facility] AST [Catalytic activity/Vol] 45 U/L High 14-36 [facility] Bilirubin [Mass/Vol] 0.3 mg/dL Normal 0.2-1.3 [facility] Calcium [Mass/Vol] 8.8 mg/dL Normal 8.4-10.2 [facility] Chloride [Moles/Vol] 110 mmol/L High 98-107 [facility] Comment on above: Result Comment: Salvador carlson note: Triglyceride levels of 600mg/dL or higher may positively bias chloride results by approximately 2.1 mmol CO2 [Moles/Vol] 23 mmol/L Normal 22-30 [facility] Creatinine [Mass/Vol] 0.80 mg/dL Normal 0.7-1.2 [facility] EST. GFR, 104 ml/min/1.73sq.m Normal [facility] EST. GFR,Non 86 ml/min/1.73sq.m Normal [facility] GFR Information Average GFR for 30-3 9 years old = 107. Normal [facility] Comment on above: Result Comment: International Project Manager franklin Kidney disease, GFR = <60. Kidney failure, GFR = <15. The GFR estimate is not adjusted for extreme body surface area or acute process, nor has it been validated for women or ethnic groups other than and . Glucose [Mass/Vol] 81 mg/dL Normal 70-100 [facility] Comment on above: Result Comment: NORMAL <100 mg/dL PREDIABETES 101-126 mg/dL DIABETES 126 mg/dL or higher Potassium [Moles/Vol] 3.9 mmol/L Normal 3.5-5.1 [facility] Protein [Mass/Vol] 7.7 g/dL Normal 6.3-8.2 [facility] Sodium [Moles/Vol] 141 mmol/L Normal 137-145 [facility] Urea nitrogen [Mass/Vol] 9 mg/dL Normal 7-20 [facility] COMPREHENSIVE METABOLIC PANE Van 02-24-2024 Albumin [Mass/Vol] 4.1 G/dl 3.5 - 5.0 G/dl [facility] Albumin/Globulin [Mass ratio] 1.1 {ratio} Low [facility] ALP [Catalytic activity/Vol] 62 U/L [facility] ALT [Catalytic activity/Vol] 23 U/L NINF [facility] AST [Catalytic activity/Vol] 45 U/L High [facility] Bilirubin [Mass/Vol] 0.3 mg/dL [facility] Calcium [Mass/Vol] 8.8 mg/dL [facility] Chloride [Moles/Vol] 110 mmol/L High [facility] Comment on above: Please note: Triglyc eride levels of 600mg/dL or higher may positively bias chloride results by approximately 2.1 mmol CO2 [Moles/Vol] 23 mmol/L [facility] Creatinine [Mass/Vol] 0.80 mg/dL [facility] GFR COMMENT Average GFR for 30-3 9 years old = 107. [facility] Comment on above: Chronic Kidney disea se, GFR = <60. Kidney failure, GFR = <15. The GFR estimate is not adjusted for extreme body surface area or acute process, nor has it been validated for women or ethnic groups other than and . GFR/1.73 sq M.predicted among blacks MDRD (S/P/Bld) [Vol rate/Area] 104 mL/min/{1.73_m2} ml/min/1.73 sq.m [facility] GFR/1.73 sq M.predicted among non-blacks MDRD (S/P/Bld) [Vol rate/Area] 86 mL/min/{1.73_m2} ml/min/1.73 sq.m [facility] Glucose post fast [Mass/Vol] 81 mg/dL [facility] Comment on above: NORMAL <100 mg/dL PREDIABETES 101-126 mg/dL DIABETES 126 mg/dL or higher Interpretation and review of laboratory results Abnormal [facility] Potassium [Moles/Vol] 3.9 mmol/L [facility] Protein [Mass/Vol] 7.7 g/dL [facility] Sodium [Moles/Vol] 141 mmol/L [facility] Urea nitrogen [Mass/Vol] 9 mg/dL [facility] HCG ( test) Ql (U)o n 02-24-2024 [facility] HCG QUALITATIVE, URINEon HCG ( test) Ql (U) Negative [facility] No Panel Informationon 02-23 Interpretation and review of laboratory results Abnormal [facility] URINALYSIS, MACROon 02-24-20 24 Bilirubin Ql (U) Negative NEGATIVE [facility] Clarity (U) CLEAR CLEAR [facility] Color (U) YELLOW YELLOW [facility] Glucose Test strip (U) [Mass/Vol] Negative NEGATIVE mg/dl [facility] Hemoglobin Ql (U) Negative NEGATIVE [facility] Ketones (U) [Mass/Vol] Negative NEGAT NAYE mg/dl [facility] Leukocyte esterase Test strip Ql (U) MODERATE Abnormal NEGATIVE [facility] Nitrite Ql (U) Negative NEGATIVE [facility] pH (U) 6.0 [pH] 5.0 - 7.0 [facility] Protein Ql (U) Negative NEGATIVE mg/dl [facility] Specific gravity (U) [Rel density] 1.010 1.010 - 1.025 [facility] Urobilinogen (U) [Mass/Vol] 0.2 mg/dL [facility] URINE HCG QUALon 02-24-2024 Beta HCG ( test) Ql (U) Negative Normal [facility] URINE MACROSCOPICon 02-24-20 24 Bilirubin Ql (U) Negative Normal NEGATIVE [facility] Clarity (U) CLEAR Normal CLEAR [facility] Color (U) YELLOW Normal YELLOW [facility] Glucose Ql (U) Negative Normal NEGATIVE [facility] pH (U) 6.0 [pH] Normal 5.0-7.0 [facility] URINE HEMOGLOBIN Negative Normal NEGATIVE [facility] URINE KETONE Negative Normal NEGATIVE [facility] URINE LEUKOTEST MODERATE Abnormal NEGATIVE [facility] URINE NITRATES Negative Normal NEGATIVE [facility] URINE SPEC GRAVITY 1.010 Normal 1.010-1.025 [facility] URINE TOTAL PROTEIN Negative Normal NEGATIVE [facility] Urobilinogen Qn (U) 0.2 {Ivone'U}/dL Normal 0.2-1.0 [facility] URINE MICROSCOPICon 02-24-20 24 Bacteria LM.HPF (Urine sed) [#/Area] TRACE Abnormal NEGATIVE [facility] Casts LM.LPF (Urine sed) [#/Area] NONE NONE /F [facility] Crystals LM Nom (Urine sed) NONE NONE [facility] Epithelial cells LM Ql (Urine sed) 5 TO 10 /HPF [facility] Mucus Ql (Urine sed) Negative NEGATIVE [facility] RBC LM.HPF (Urine sed) [#/Area] Negative NEGATIVE /HPF [facility] Urine sediment comments LM Edson (Urine sed) CULTURE CRITERIA NOT MET, NO CULTURE PERFORMED. [facility] WBC LM.HPF (Urine sed) [#/Area] 1 TO 5 NEGATIVE /HPF [facility] BACTERIA TRACE Abnormal NEGATIVE [facility] CASTS NONE Normal NONE [facility] CRYSTAL NONE Normal NONE [facility] Epithelial cells LM Ql (Urine sed) 5 TO 10 Normal [facility] Mucus Ql (Urine sed) Negative Normal NEGATIVE [facility] URINE COMMENT CULTURE CRITERIA NOT MET, NO CULTURE PERFORMED. Normal [facility] URINE RBC'S Negative Normal NEGATIVE [facility] URINE WBC'S 1 TO 5 Normal NEGATIVE [facility] CBCon 02-16-2024 ABSOLUTE BAS 0.1 10*3/uL Normal 0.0-0.2 [facility] ABSOLUTE EOS 0.0 10*3/uL Normal 0.0-0.7 [facility] ABSOLUTE NEUTROPHIL COUNT 2.7 10*3/uL Normal 1.4-6.5 [facility] Basophils/100 WBC (Bld) 1.4 % Normal 0.0-2.0 [facility] DTYPE AUTO DIFF Normal [facility] Eosinophils/100 WBC (Bld) 0.5 % Normal 0.0-11.0 [facility] Lymphocytes (Bld) [#/Vol] 2.1 10*3/uL Normal 1.2-3.4 [facility] Lymphocytes/100 WBC (Bld) 40.3 % Normal 20.0-55.0 [facility] Monocytes (Bld) [#/Vol] 0.3 10*3/uL Normal 0.0-0.7 [facility] Monocytes/100 WBC (Bld) 5.6 % Normal 0.0-10.0 [facility] Neutrophils/100 WBC (Bld) 52.2 % Normal 37.0-75.0 [facility] Erythrocyte distribution width (RBC) [Ratio] 17.0 % High 11.5-14.5 [facility] Hematocrit (Bld) [Volume fraction] 35.2 % Low 36.0-48.0 [facility] Hemoglobin (Bld) [Mass/Vol] 10.9 g/dL Low 12.0-16.0 [facility] MCH (RBC) [Entitic mass] 22.6 pg Low 26.0-35.0 [facility] MCHC (RBC) [Mass/Vol] 30.9 g/dL Normal 27.0-37.0 [facility] MCV (RBC) [Entitic vol] 73.0 fL Low 80.0-100.0 A [facility] Platelet mean volume (Bld) [Entitic vol] 7.3 fL Low 7.4-11.0 [facility] Platelets (Bld) [#/Vol] 529 10*3/uL High 130-400 [facility] RBC (Bld) [#/Vol] 4.81 10*6/uL Normal 4.0-5.4 [facility] WBC (Bld) [#/Vol] 5.1 10*3/uL Normal 3.6-11.0 [facility] CBC, EDIF, PLATELETon 2023 ABSOLUTE BASOPHIL COUNT 0.1 10*3/uL 0.0 - 0.2 10*3/uL [facility] Basophils/100 WBC (Bld) 1.4 % 0.0 - 2.0 % [facility] Differential cell count method Nom (Bld) AUTO DIFF % [facility] Eosinophils (Bld) [#/Vol] 0.0 10*3/uL 0.0 - 0.7 10*3/uL [facility] Eosinophils/100 WBC (Bld) 0.5 % 0.0 - 11.0 % [facility] Erythrocyte distribution width (RBC) [Ratio] 17.0 % High 11.5 - 14.5 % [facility] Hematocrit (Bld) [Volume fraction] 35.2 % Low 36.0 - 48.0 % [facility] Hemoglobin (Bld) [Mass/Vol] 10.9 g/dL Low [facility] Interpretation and review of laboratory results Abnormal [facility] Lymphocytes (Bld) [#/Vol] 2.1 10*3/uL 1.2 - 3.4 10*3/uL [facility] Lymphocytes/100 WBC (Bld) 40.3 % 20.0 - 55.0 % [facility] MCH (RBC) [Entitic mass] 22.6 pg Low 26.0 - 35.0 PG [facility] MCHC (RBC) [Mass/Vol] 30.9 g/dL [facility] MCV (RBC) [Entitic vol] 73.0 fL Low [facility] Monocytes (Bld) [#/Vol] 0.3 10*3/uL 0.0 - 0.7 10*3/uL [facility] Monocytes/100 WBC (Bld) 5.6 % 0.0 - 10.0 % [facility] Neutrophils (Bld) [#/Vol] 2.7 10*3/uL 1.4 - 6.5 10*3/uL [facility] Neutrophils/100 WBC (Bld) 52.2 % 37.0 - 75.0 % [facility] Platelet mean volume (Bld) [Entitic vol] 7.3 fL Low [facility] Platelets (Bld) [#/Vol] 529 10*3/uL High 130 - 400 10*3/uL [facility] RBC (Bld) [#/Vol] 4.81 10*6/uL 4.0 - 5.4 10*6/uL [facility] WBC (Bld) [#/Vol] 5.1 10*3/uL 3.6 - 11.0 10*3/uL [facility] CHEM 7 FASTINGon 02-16-2024 Chloride [Moles/Vol] 109 mmol/L High 98-107 [facility] Comment on above: Result Comment: Salvador carlson note: Triglyceride levels of 600mg/dL or higher may positively bias chloride results by approximately 2.1 mmol CO2 [Moles/Vol] 22 mmol/L Normal 22-30 [facility] Creatinine [Mass/Vol] 0.70 mg/dL Normal 0.7-1.2 [facility] EST. GFR, 121 ml/min/1.73sq.m [facility] EST. GFR,Non 100 ml/min/1.73sq.m [facility] GFR Information Average GFR for 30-3 9 years old = 107. Normal [facility] Comment on above: Result Comment: International Project Manager franklin Kidney disease, GFR = <60. Kidney failure, GFR = <15. The GFR estimate is not adjusted for extreme body surface area or acute process, nor has it been validated for women or ethnic groups other than and . Glucose [Mass/Vol] 106 mg/dL High 70-100 [facility] Comment on above: Result Comment: NORMAL <100 mg/dL PREDIABETES 101-126 mg/dL DIABETES 126 mg/dL or higher Potassium [Moles/Vol] 3.8 mmol/L Normal 3.5-5.1 [facility] Sodium [Moles/Vol] 139 mmol/L Normal 137-145 [facility] Urea nitrogen [Mass/Vol] 8 mg/dL Normal 7-20 [facility] CHEM 7 (LYTES,BUN,CREA,GLUC) on 02-16-2024 Chloride [Moles/Vol] 109 mmol/L [facility] Comment on above: Please note: Triglyc eride levels of 600mg/dL or higher may positively bias chloride results by approximately 2.1 mmol CO2 [Moles/Vol] 22 mmol/L [facility] Creatinine [Mass/Vol] 0.70 mg/dL [facility] GFR COMMENT Average GFR for 30-3 9 years old = 107. [facility] Comment on above: Chronic Kidney disea se, GFR = <60. Kidney failure, GFR = <15. The GFR estimate is not adjusted for extreme body surface area or acute process, nor has it been validated for women or ethnic groups other than and . GFR/1.73 sq M.predicted among blacks MDRD (S/P/Bld) [Vol rate/Area] 121 mL/min/{1.73_m2} ml/min/1.73 sq.m [facility] GFR/1.73 sq M.predicted among non-blacks MDRD (S/P/Bld) [Vol rate/Area] 100 mL/min/{1.73_m2} ml/min/1.73 sq.m [facility] Glucose post fast [Mass/Vol] 106 mg/dL High [facility] Comment on above: NORMAL <100 mg/dL PREDIABETES 101-126 mg/dL DIABETES 126 mg/dL or higher Potassium [Moles/Vol] 3.8 mmol/L [facility] Sodium [Moles/Vol] 139 mmol/L [facility] Urea nitrogen [Mass/Vol] 8 mg/dL [facility] CT ABDOMEN/PELVIS WITH CONTR Agustín 02-16-2024 CT [...] 3. There is no obstructive uropathy. Normal [facility] CT Abdomen and Pelvis W cont rast [...] lesion. 3. There is no obstructive uropathy. [employer] Radiology Study observation (narrative) [employer] CT Abdomen and Pelvis W cont rast IVOrdered By: Jadno Ashraf on 02-16-2024 [employer] Work Phone: HCG ( test) Ql (U)o n 02-16-2024 [employer] HCG QUALITATIVE, URINEon HCG ( test) Ql (U) Negative [employer] HEPATIC FUNCTION PANELon Albumin [Mass/Vol] 4.5 g/dL [employer] ALP [Catalytic activity/Vol] 71 U/L [facility] ALT [Catalytic activity/Vol] 24 U/L NINF [facility] AST [Catalytic activity/Vol] 27 U/L [facility] Bilirubin [Mass/Vol] 0.5 mg/dL [facility] Bilirubin.direct [Mass/Vol] 0.5 mg/dL High [facility] Protein [Mass/Vol] 8.2 g/dL [facility] LIPASEon 02-16-2024 Lipase [Catalytic activity/Vol] 127 U/L 23 - 300 U/L [facility] LIPASE,SERUMon 02-16-2024 LIPASE,SERUM 127 U/L Normal 23-300 [facility] LIVER PANELon 02-16-2024 Albumin [Mass/Vol] 4.5 g/dL Normal 3.5-5.0 [facility] ALP [Catalytic activity/Vol] 71 U/L Normal 38-126 [facility] ALT [Catalytic activity/Vol] 24 U/L Normal <35 [facility] AST [Catalytic activity/Vol] 27 U/L Normal 14-36 [facility] Bilirubin [Mass/Vol] 0.5 mg/dL Normal 0.2-1.3 [facility] Bilirubin.indirect [Mass/Vol] 0.5 mg/dL High 0-0.4 [facility] Protein [Mass/Vol] 8.2 g/dL Normal 6.3-8.2 [facility] No Panel Informationon 02-15 Interpretation and review of laboratory results Abnormal [facility] PROTIMEon 02-16-2024 INR Coag (PPP) [Relative time] 0.89 {INR} Normal 0.88-1.14 [facility] Comment on above: Result Comment: 2.0-3.0 THERAPEUTIC RANGE 2.5-3.5 MECHANICAL VALVE RANGE PT Coag (PPP) [Time] 12.2 s Normal 11.8-14.4 [facility] PROTIME-INRon 02-16-2024 INR Coag (PPP) [Relative time] 0.89 {INR} 0.88 - 1.14 [facility] Comment on above: 2.0-3.0 THERAPEUTIC RANGE 2.5-3.5 MECHANICAL VALVE RANGE PT Coag (PPP) [Time] 12.2 s [facility] Portable XR Chest Viewson IMPRESSION: 1. No [...] No free air collections underneath the diaphragms. [facility] Radiology Study observation (narrative) [facility] Portable XR Chest ViewsOrder ed By: Davi Cheng on 02-16-2024 [facility] Work Phone: URINE HCG QUALon 02-16-2024 Beta HCG ( test) Ql (U) Negative Normal [facility] XR CHEST 1 VIEW PORTABLEon 0 [...] free air collections underneath the diaphragms. Normal [facility] ED Clinical Summaryon 2023 ED Clinical Summary ED Clinical Summary [place] [address] ED Clinical Summary Person Information Name: ANTONIA NOYOLA/Michelle Age: 39 Years : 1985 Sex: Female Language: Citizen Of [place] PCP: NONE, XXXX Marital Status: Visit Id: [...] 02/13/2024 01:00:19 ADDRESS: [address] [place] [id number] PHYS DOC NOTES: MEDICAL INFORMATION: Prescriptions Given: New Medications [id number], [address] [place], [place] [id number], [phone] amoxicillin-clavulanat e (Augmentin 875 mg-125 mg Tab) [...] Pain Follow up: With: Address: When: Dental: [facility] [phone] In 3 days 02/16/2024 With: Address: When: Dental: [facility] [phone] In 3 days 02/16/2024 With: Address: When: Dental: [facility] [phone] In 3 days 02/16/2024 DIAGNOSIS: Pain, dental Normal [facility] ED Note-Physicianon 02-13-20 ED Note-Physician ED Note-Physician [...] and was given a short prescription for [place] which she is also taking but states [...] Problems Differential Diagnosis: [] [facility] Data External documents reviewed: N/A My [...] already taking oral Toradol as well as [place]. We discussed using lidocaine and bupivacaine soaked [...] for 7 day(s), 14 tab(s), Refill(s) 0, [id number], 165.1, cm, 02/13/24 0:28:00 [...] q12hr Follow-up With When Contact Information Dental: [facility] [phone] In 3 days 02/16/2024 EDT Additional Instructions: Dental: [facility] [phone] In 3 days 02/16/2024 EDT Additional Instructions: Dental: [facility] [phone] In 3 days 02/16/2024 EDT Additional Instructions: [...] available. Diagnostic Results No qualifying data available. [facility] Comment on above: Result Comment: Elec tronically Signed By: Ritesh Heath DO\.br\Date and Time Signed: 02/13/24 00:51 EDT ED Patient Summaryon 024 ED Patient Summary ED Patient Summary [place] [id number] Patient Discharge Instructions Person Information Name: ANTONIA NOYOLA Age: 39 Years Arrival Date: 02/13/2024 00:20:34 Discharge Diagnosis: Pain, dental Primary Care Physician: NONE, XXXX Provider Information Primary Provider: Ritesh Heath DO Advanced Jewelry Designer:None The exam and treatment you received in the Emergency Department were for an urgent problem and are not intended as complete care. It is important that you follow up with a doctor, nurse practitioner, or physician?s assistant professor of nursing for ongoing care. If your symptoms become worse or you do not improve as expected and you are unable to reach your usual health care provider, you should return to the Emergency Department. We are available 24 hours a day. ANTONIA NOYOLA has been given the following list of patient education materials, prescriptions and follow-up instructions: Follow-up Instructions: With: Address: When: Dental: [facility] [phone] In 3 days 02/16/2024 With: Address: When: Dental: [facility] [phone] In 3 days 02/16/2024 With: Address: When: Dental: [facility] [phone] In 3 days 02/16/2024 In the event that this physician does not participate in your insurance network, please consult with your insurance company to find a nearby participating provider. Patient Education Materials: Dental Pain A MESSAGE TO ALL PATIENTS REGARDING OPIOIDS PRESCRIPTION OPIOIDS: WHAT YOU NEED TO KNOW Prescription opioids can be used to help relieve hssudahz-dl-jrjvca pain and are often prescribed following a [...] from the Food and Drug Administration (www.fda.gov/Drugs/Res ourcesForBeny). ? Visit www.cdc.gov/drugoverdo se to learn about the risks of opioids abuse and overdose. ? If you believe you may be struggling with addiction, tell your health care professi (more content not included)... Normal [facility] C REACTIVE PROTEINon 024 CRP [Mass/Vol] mg/L Normal 0.000-0.744 [facility] Comment on above: Performed By: #### C BCA, CMP #### [facility] ([id number]) [address] [place] [address] 37471 CBC AND AUTO DIFFon 01-27-20 24 ABSOLUTE BASOPHIL 0.1 X10E9/L Normal 0.0-0.2 [facility] Comment on above: Performed By: #### C HEATH CMP, 3040-3, 22700-2, 1987-10, #### [facility] ([id number]) [address] [place] [address] 53716 ABSOLUTE NEUTROPHIL 4.6 X10E9/L Normal 1.5-6.6 [facility] Comment on above: Performed By: #### C HEATH, CMP, 3040-3, 01603-3, 1987-10, #### [facility] ([id number]) [address] [place] [address] 73734 Basophils/100 WBC (Bld) 1.0 % Normal [facility] Comment on above: Performed By: #### C BCA, CMP, 3040-3, 64553-6, 1987-10, #### [facility] ([id number]) [address] [place] [address] 07285 Eosinophils (Bld) [#/Vol] 0.1 10*3/uL Normal 0.0-0.4 [facility] Comment on above: Performed By: #### C BCA, CMP, 3040-3, 42324-5, 1987-10, #### [facility] ([id number]) [address] [place] [address] 18786 Eosinophils/100 WBC (Bld) 1.8 % Normal [facility] Comment on above: Performed By: #### C HEATH, [facility], 0-3, 88165-2, 1987-10, #### [facility] ([id number]) [address] [place] [address] 73821 Erythrocyte distribution width (RBC) [Ratio] 17.1 % High 11.5-15.0 [facility] Comment on above: Performed By: #### C HEATH, [facility], 3039-3, , 1987-10, #### [facility] ([id number]) [address] [place] [address] 77940 Hematocrit (Bld) [Volume fraction] 34.8 % Low 35-47 [facility] Comment on above: Performed By: #### C HEATH, [facility], 3039-3, , 1987-10, #### [facility] ([id number]) [address] [place] [address] 81417 Hemoglobin (Bld) [Mass/Vol] 10.9 g/dL Low 11.7-15.5 [facility] Comment on above: Performed By: #### C HEATH, [facility], 3039-3, , 1987-10, #### [facility] ([id number]) [address] [place] [address] 15692 Lymphocytes (Bld) [#/Vol] 1.9 10*3/uL Normal 1.0-3.5 [facility] Comment on above: Performed By: #### C HEATH, CMP, 3040-3, , 1987-10, #### [facility] ([id number]) [address] [place] [address] 76131 Lymphocytes/100 WBC (Bld) 26.4 % Normal [facility] Comment on above: Performed By: #### C HEATH, CMP, 3039-08, , 1987-10, #### [facility] ([id number]) [address] [place] [address] 99001 MCH (RBC) [Entitic mass] 22.7 pg Low 27-34 [facility] Comment on above: Performed By: #### C BCA, CMP, 3039-08, , 1987-10, #### [facility] ([id number]) [address] [place] [address] 26645 MCHC (RBC) [Mass/Vol] 31.3 g/dL Low 32-36 [facility] Comment on above: Performed By: #### Leila JOE, CMP, 3039-08, , 1987-10, #### [facility] ([id number]) [address] [place] [address] 69923 MCV (RBC) [Entitic vol] 72 fL Low 80-100 [facility] Comment on above: Performed By: #### C HEATH, CMP, 3039-08, , 1987-10, #### [facility] ([id number]) [address] [place] [address] 80113 Monocytes (Bld) [#/Vol] 0.4 10*3/uL Normal 0-0.9 [facility] Comment on above: Performed By: #### C BCA, CMP, 3039-08, , 1987-10, #### [facility] ([id number]) [address] [place] [address] 56710 Monocytes/100 WBC (Bld) 5.8 % Normal [facility] Comment on above: Performed By: #### C BCA, CMP, 3039-08, , 1987-10, #### [facility] ([id number]) [address] [place] [address] 13507 Neutrophils/100 WBC (Bld) 65.0 % Normal [facility] Comment on above: Performed By: #### Leila JOE, CMP, 3039-3, , 1987-10, #### [facility] ([id number]) [address] [place] [address] 74212 Platelet mean volume (Bld) [Entitic vol] 7.6 fL Normal 7-12 [facility] Comment on above: Performed By: #### C HEATH, CMP, 3039-08, , 1987-10, #### [facility] ([id number]) [address] [place] [address] 55787 Platelets (Bld) [#/Vol] 532 10*3/uL High 150-450 [facility] Comment on above: Performed By: #### Leila JOE, CMP, 3039-08, , 1987-10, #### [facility] ([id number]) [address] [place] [address] 52060 RBC COUNT 4.80 X10E12/L Normal 3.80-5.20 [facility] Comment on above: Performed By: #### Leila JOE, CMP, 3039-08, , 1987-10, #### [facility] ([id number]) [address] [place] [address] 70286 WBC (Bld) [#/Vol] 7.0 10*3/uL Normal 4.0-11.0 [facility] Comment on above: Performed By: #### Leila JOE, CMP, 3039-, , 1987-10, #### [facility] ([id number]) [address] [place] [address] 70088 CHLAMYDIA/GC BY PCRon 2023 CHLAMYDIA/GC BY PCR [...] are dependent on adequate specimen collection. Normal [facility] Comment on above: Performed By: #### C HEATH, CMP #### [facility] ([id number]) [address] [place] [address] 51001 COMPREHENSIVE METABOLIC PANE [place] 01-27-2024 Albumin [Mass/Vol] 4.3 g/dL Normal 3.2-5.3 [facility] Comment on above: Performed By: #### C HEATH CMP, 3040-3, 52638-8, 1987-10, #### [facility] ([id number]) [address] [place] [address] 65267 ALP [Catalytic activity/Vol] 76 U/L Normal 39-130 [facility] Comment on above: Performed By: #### C HEATH CMP, 3040-3, 34908-9, 1987-10, #### [facility] ([id number]) [address] [place] [address] 82389 ALT [Catalytic activity/Vol] 28 U/L Normal 0-31 [facility] Comment on above: Performed By: #### C HEATH CMP, 3040-3, 10816-0, 1987-10, #### [facility] ([id number]) [address] [place] [address] 33580 Anion gap [Moles/Vol] 7 mmol/L Normal 5-15 [facility] Comment on above: Performed By: #### C BCA CMP, 3040-3, 31679-6, 1987-10, #### [facility] ([id number]) [address] [place] [address] 09909 AST [Catalytic activity/Vol] 20 U/L Normal 0-41 [facility] Comment on above: Performed By: #### C BCA, CMP, 3040-3, 06545-0, 1987-10, #### [facility] ([id number]) [address] [place] [address] 66736 Bilirubin [Mass/Vol] 1.0 mg/dL Normal 0.3-1.2 [facility] Comment on above: Performed By: #### C BCA, CMP, 3040-3, 12388-3, 1987-10, #### [facility] ([id number]) [address] [place] [address] 69421 Calcium [Mass/Vol] 9.0 mg/dL Normal 8.5-10.5 [facility] Comment on above: Performed By: #### C BCA, CMP, 3040-3, 54166-3, 1987-10, #### [facility] ([id number]) [address] [place] [address] 78316 Chloride [Moles/Vol] 102 mmol/L Normal 98-109 [facility] Comment on above: Performed By: #### C BCA, CMP, 3040-3, 45878-9, 1987-10, #### [facility] ([id number]) [address] [place] [address] 33401 CO2 [Moles/Vol] 22 mmol/L Normal 22-32 [facility] Comment on above: Performed By: #### C BCA, CMP, 3040-3, 37454-3, 1987-10, #### [facility] ([id number]) [address] [place] [address] 81798 Creatinine [Mass/Vol] 0.76 mg/dL Normal 0.40-1.00 [facility] Comment on above: Result Comment: METH OD TRACEABLE TO IDMS STANDARD Performed By: #### C STEVE JOE, 0-3, 89161-8, 1987-10, #### [facility] ([id number]) [address] [place] [address] 05352 eGFR (CKD-EPI) NON-RACE DEPENDENT >90 Normal >59 [facility] Comment on above: Result Comment: Reported eGFR is based on the CKD-EPI 2020 equation that does not use a race coefficient. Performed By: #### C STEVE JOE, 3039-3, , 1987-10, #### [facility] ([id number]) [address] [place] [address] 14409 Glucose [Mass/Vol] 109 mg/dL High 65-99 [facility] Comment on above: Performed By: #### C STEVE JOE, 0-3, , 1987-10, #### [facility] ([id number]) [address] [place] [address] 85422 Potassium [Moles/Vol] 4.1 mmol/L Normal 3.5-5.0 [facility] Comment on above: Performed By: #### C STEVE JOE, 0-3, , 1987-10, #### [facility] ([id number]) [address] [place] [address] 21942 Protein [Mass/Vol] 8.2 g/dL High 6.0-8.0 [facility] Comment on above: Performed By: #### C STEVE JOE, 0-3, 55733-9, 1987-10, #### [facility] ([id number]) [address] [place] [address] 42678 Sodium [Moles/Vol] 131 mmol/L Low 134-146 [facility] Comment on above: Performed By: #### C BCA, CMP, 3040-3, 62378-3, 1987-10, #### [facility] ([id number]) [address] [place] [address] 63094 Urea nitrogen [Mass/Vol] 6 mg/dL Normal 5-23 [facility] Comment on above: Performed By: #### C HEATH, CMP, 3040-3, 04830-7, 1987-10, #### [facility] ([id number]) [address] [place] [address] 85938 HCG ( test) Ql (U)o n 01-27-2024 Beta HCG ( test) Ql (U) Negative Normal NEG [facility] Comment on above: Performed By: #### 2 106-3 #### [facility] ([id number]) [address] [place] [address] 69470 LIPASEon 01-27-2024 Lipase [Catalytic activity/Vol] 33 U/L Normal 17-40 [facility] Comment on above: Performed By: #### C BCA, CMP #### [facility] ([id number]) [address] [place] [address] 17883 Lactate (P arely) [Moles/Vol]o n 01-27-2024 LACTATE W/REFLEX 1.5 mmol/L Normal 0.4-2.0 [facility] Comment on above: Result Comment: Result did not trigger repeat Lactate, re-order if needed. Performed By: #### C BCA, CMP #### [facility] ([id number]) [address] [place] [address] 41873 MAGNESIUMon 01-27-2024 Magnesium [Mass/Vol] 2.0 mg/dL Normal 1.8-2.6 [facility] Comment on above: Performed By: #### C BCA, CMP #### [facility] ([id number]) [address] [place] [address] 82951 URINE CULTUREon 01-27-2024 Bacteria identified Cx Nom (U) CULTURE RESULTS <10,000 ORGANISMS/ML NORMAL URO GENITAL RASHID Normal [facility] Comment on above: Performed By: #### C BCA, CMP #### [facility] ([id number]) [address] [place] [address] 27055 URN MACROSCOPIC NURon 2023 BILIRUBIN AUDREY Negative Normal NEG [facility] Comment on above: Performed By: #### N UM #### [facility] ([id number]) [address] [place] [address] 86804 BLOOD/HGB AUDREY Negative Normal NEG [facility] Comment on above: Performed By: #### N UM #### [facility] ([id number]) [address] [place] [address] [place] [address] GLUCOSE AUDREY Negative Normal NEG [facility] Comment on above: Performed By: #### N UM #### [facility] ([id number]) [address] [place] [address] [place] [address] KETONES AUDREY Negative Normal NEG [facility] Comment on above: Performed By: #### N UM #### [facility] ([id number]) [address] [place] [address] [place] [address] LEUKOCYTE ESTERASE AUDREY Negative Normal NEG [facility] Comment on above: Performed By: #### N UM #### [facility] ([id number]) [address] [place] [address] 52649 NITRITE AUDREY Negative Normal NEG [facility] Comment on above: Performed By: #### N UM #### [facility] ([id number]) [address] [place] [address] 34776 PH AUDREY 8.5 Normal 5.0-8.5 [facility] Comment on above: Performed By: #### N UM #### [facility] ([id number]) [address] [place] [address] PROTEIN AUDREY Negative Normal NEG [facility] Comment on above: Performed By: #### N UM #### [facility] ([id number]) [address] [place] [address] 10149 SPECIFIC GRAVITY AUDREY 1.015 Normal 1.003-1.035 [facility] Comment on above: Performed By: #### N UM #### [facility] ([id number]) [address] [place] [address] 96483 UROBILINOGEN AUDREY 0.2 eu/dL Normal <1.1 [facility] Comment on above: Performed By: #### N UM #### [facility] ([id number]) [address] [place] [address] 97219 US PELVIC WITH TRANSVAGINAL AND DUPLEXon 01-27-2024 [...] Nixon MD on 01/27/2024 2:39 PM Normal [facility] VAGINITIS PANEL PCRon 2023 VAGINITIS [...] clinical presentation to determine patient diagnosis. Normal [facility] Comment on above: Performed By: #### C HEATH, [facility] #### [facility] ([id number]) [address] [place] [address] sinus wo conon 11-25-2023 CT sinus wo con [facility] Main [address] [address] [address] Scan Report Signed Patient: Antonia Noyola MR#: [id number] 757 : 1985 Acct:[id number] Age/Sex: 38 / F ADM Date: 11/25/23 Loc: CT Room: Type: [facility] Attending Dr: Jennifer Duran DO Copies [...] Davi Figueroa M.D.11/25/2023 4:01 PM Dictation Location: [place] [address] Transcribed By: [facility] 11/25/23 1601 Dictated By: Davi Figueroa DO 11/25/23 1559 Signed By: 11/25/23 1601 Normal [facility] CBC AND AUTO DIFFon 10-25-19 ABSOLUTE BASOPHIL 0.1 X10E9/L Normal 0.0-0.2 [facility] Comment on above: Performed By: #### C BCA, CMP #### [facility] ([id number]) [address] [place] [address] 41976 ABSOLUTE NEUTROPHIL 4.1 X10E9/L Normal 1.5-6.6 [facility] Comment on above: Performed By: #### C BCA, CMP #### [facility] ([id number]) [address] [place] [address] 15037 Basophils/100 WBC (Bld) 0.9 % Normal [facility] Comment on above: Performed By: #### C BCA, CMP #### [facility] ([id number]) [address] [place] [address] 36070 Eosinophils (Bld) [#/Vol] 0.0 10*3/uL Normal 0.0-0.4 [facility] Comment on above: Performed By: #### C HEATH, CMP #### [facility] ([id number]) [address] [place] [address] 13857 Eosinophils/100 WBC (Bld) 0.1 % Normal [facility] Comment on above: Performed By: #### C HEATH, CMP #### [facility] ([id number]) [address] [place] [address] 08675 Erythrocyte distribution width (RBC) [Ratio] 17.9 % High 11.5-15.0 [facility] Comment on above: Performed By: #### C HEATH, CMP #### [facility] ([id number]) [address] [place] [address] 88447 Hematocrit (Bld) [Volume fraction] 34.6 % Low 35-47 [facility] Comment on above: Performed By: #### C HEATH, CMP #### [facility] ([id number]) [address] [place] [address] 44860 Hemoglobin (Bld) [Mass/Vol] 11.1 g/dL Low 11.7-15.5 [facility] Comment on above: Performed By: #### C HEATH, CMP #### [facility] ([id number]) [address] [place] [address] 24526 Lymphocytes (Bld) [#/Vol] 1.5 10*3/uL Normal 1.0-3.5 [facility] Comment on above: Performed By: #### C HEATH, CMP #### [facility] ([id number]) [address] [place] [address] 88975 Lymphocytes/100 WBC (Bld) 25.6 % Normal [facility] Comment on above: Performed By: #### C HEATH, CMP #### [facility] ([id number]) [address] [place] [address] MCH (RBC) [Entitic mass] 23.1 pg Low 27-34 [facility] Comment on above: Performed By: #### C HEATH, CMP #### [facility] ([id number]) [address] [place] [address] 49557 MCHC (RBC) [Mass/Vol] 32.1 g/dL Normal 32-36 [facility] Comment on above: Performed By: #### C BCA, CMP #### [facility] ([id number]) [address] [place] [address] 75616 MCV (RBC) [Entitic vol] 72 fL Low 80-100 [facility] Comment on above: Performed By: #### C HEATH, CMP #### [facility] ([id number]) [address] [place] [address] 00294 Monocytes (Bld) [#/Vol] 0.3 10*3/uL Normal 0-0.9 [facility] Comment on above: Performed By: #### C HEATH, CMP #### [facility] ([id number]) [address] [place] [address] 75859 Monocytes/100 WBC (Bld) 5.3 % Normal [facility] Comment on above: Performed By: #### C HEATH, CMP #### [facility] ([id number]) [address] [place] [address] 93891 Neutrophils/100 WBC (Bld) 68.1 % Normal [facility] Comment on above: Performed By: #### C HEATH, CMP #### [facility] ([id number]) [address] [place] [address] 93683 Platelet mean volume (Bld) [Entitic vol] 7.7 fL Normal 7-12 [facility] Comment on above: Performed By: #### C BCA, CMP #### [facility] ([id number]) [address] [place] [address] 32627 Platelets (Bld) [#/Vol] 532 10*3/uL High 150-450 [facility] Comment on above: Performed By: #### C BCA, CMP #### [facility] ([id number]) [address] [place] [address] 80018 RBC COUNT 4.82 X10E12/L Normal 3.80-5.20 [facility] Comment on above: Performed By: #### C BCA, CMP #### [facility] ([id number]) [address] [place] [address] 03284 WBC (Bld) [#/Vol] 6.0 10*3/uL Normal 4.0-11.0 [facility] Comment on above: Performed By: #### C HEATH, CMP #### [facility] ([id number]) [address] [place] [address] 78085 COMPREHENSIVE METABOLIC PANE [facility] 10-25-2023 Albumin [Mass/Vol] 4.7 g/dL Normal 3.2-5.3 [facility] Comment on above: Performed By: #### C BCA, CMP #### [facility] ([id number]) [address] [place] [address] 88298 ALP [Catalytic activity/Vol] 67 U/L Normal 39-130 [facility] Comment on above: Performed By: #### C BCA, CMP #### [facility] ([id number]) [address] [place] [address] 91934 ALT [Catalytic activity/Vol] 23 U/L Normal 0-31 [facility] Comment on above: Performed By: #### C BCA, CMP #### [facility] ([id number]) [address] [place] [address] 09138 Anion gap [Moles/Vol] 11 mmol/L Normal 5-15 [facility] Comment on above: Performed By: #### C BCA, CMP #### [facility] ([id number]) [address] [place] [address] 56098 AST [Catalytic activity/Vol] 20 U/L Normal 0-41 [facility] Comment on above: Performed By: #### C BCA, CMP #### [facility] ([id number]) [address] [place] [address] 05034 Bilirubin [Mass/Vol] 1.0 mg/dL Normal 0.3-1.2 [facility] Comment on above: Performed By: #### C BCA, CMP #### [facility] ([id number]) [address] [place] [address] 74411 Calcium [Mass/Vol] 9.6 mg/dL Normal 8.5-10.5 [facility] Comment on above: Performed By: #### C BCA, CMP #### [facility] ([id number]) [address] [place] [address] 34048 Chloride [Moles/Vol] 106 mmol/L Normal 98-109 [facility] Comment on above: Performed By: #### C BCA, CMP #### [facility] ([id number]) [address] [place] [address] 26223 CO2 [Moles/Vol] 20 mmol/L Low 22-32 [facility] Comment on above: Performed By: #### C BCA, CMP #### [facility] ([id number]) [address] [place] [address] 94367 Creatinine [Mass/Vol] 0.59 mg/dL Normal 0.40-1.00 [facility] Comment on above: Result Comment: METH OD TRACEABLE TO IDMS STANDARD Performed By: #### C BCA, CMP #### [facility] ([id number]) [address] [place] [address] 17723 eGFR (CKD-EPI) NON-RACE DEPENDENT >90 Normal >59 [facility] Comment on above: Result Comment: Reported eGFR is based on the CKD-EPI 2020 equation that does not use a race coefficient. Performed By: #### C BCA, CMP #### [facility] ([id number]) [address] [place] [address] [id number] Glucose [Mass/Vol] 124 mg/dL High 65-99 [facility] Comment on above: Performed By: #### C BCA, CMP #### [facility] ([id number]) [address] [place] [address] 11678 Potassium [Moles/Vol] 3.5 mmol/L Normal 3.5-5.0 [facility] Comment on above: Performed By: #### C BCA, CMP #### [facility] ([id number]) [address] [place] [address] [id number] Protein [Mass/Vol] 8.7 g/dL High 6.0-8.0 [facility] Comment on above: Performed By: #### C BCA, CMP #### [facility] ([id number]) [address] [place] [address] 41157 Sodium [Moles/Vol] 137 mmol/L Normal 134-146 [facility] Comment on above: Performed By: #### C BCA, CMP #### [facility] ([id number]) [address] [place] [address] 02546 Urea nitrogen [Mass/Vol] 6 mg/dL Normal 5-23 [facility] [facility] Comment on above: Performed By: #### C BCA, CMP #### [facility] ([id number]) [address] [place] [address] ABDOMEN AND PELVIS W CONT on [...] Fisher MD on 10/25/2023 7:39 PM Normal [facility] HCG ( test) Ql (U)o n 10-25-2023 Beta HCG ( test) Ql (U) Negative Normal NEG [facility] Comment on above: Performed By: #### 2 106-3 #### [facility] ([id number]) [address] [place] [address]4050 URN MACROSCOPIC NURon 2023 BILIRUBIN AUDREY Negative Normal NEG [facility] Comment on above: Performed By: #### N UM #### [facility] ([id number]) [address] [place] [address] 57630 BLOOD/HGB AUDREY Negative Normal NEG [facility] Comment on above: Performed By: #### N UM #### [facility] ([id number]) [address] [place] [address] 21649 GLUCOSE AUDREY Negative Normal NEG [facility] Comment on above: Performed By: #### N UM #### [facility] ([id number]) [address] [place] [address] 14535 KETONES AUDREY 15 mg/dL Abnormal NEG [facility] Comment on above: Performed By: #### N UM #### [facility] ([id number]) [address] [place] [address] 77189 LEUKOCYTE ESTERASE AUDREY Trace Abnormal NEG Pr [facility] Comment on above: Performed By: #### N UM #### [facility] ([id number]) [address] [place] [address] 16299 NITRITE AUDREY Negative Normal NEG [facility] Comment on above: Performed By: #### N UM #### [facility] ([id number]) [address] [place] [address] 17471 PH AUDREY 7.0 Normal 5.0-8.5 [facility] Comment on above: Performed By: #### N UM #### [facility] ([id number]) [address] [place] [address] 63340 PROTEIN AUDREY Negative Normal NEG [facility] Comment on above: Performed By: #### N UM #### [facility] ([id number]) [address] [place] [address] 13659 SPECIFIC GRAVITY AUDREY 1.020 Normal 1.003-1.035 [facility] Comment on above: Performed By: #### N UM #### [facility] ([id number]) [address] [place] [address] 24471 UROBILINOGEN AUDREY 1.0 eu/dL Normal <1.1 [facility] Comment on above: Performed By: #### N UM #### [facility] ([id number]) [address] [place] [address] 57973 US PELVIC WITH TRANSVAGINAL AND DUPLEXon 05-14-2024 US PELVIC WITH TRANSVAGINAL AND DUPLEX US [...] Singh MD on 10/25/2023 6:17 PM Normal [facility] C Urineon 10-02-2023 Bacteria identified [...] Locations R1: This test was performed at: [facility] [place], [address] [place] [address], [id number]- , [place], Normal [facility] Comment on above: Performed By: #### 2 043780 #### [facility] Laboratory [address] [place] [address] BMPon 09-30-2023 Anion gap [Moles/Vol] 13 mmol/L Normal 6-16 [facility] Comment on above: Performed By: #### 2 373364, 6165573, 57749423, 6565237, 1053830 ####[facility] [address] [place] [address] Calcium [Mass/Vol] 9.1 mg/dL Normal 8.9-11.1 [facility] Comment on above: Performed By: #### 2 886447, 3044438, 18747961, 1407066, 8674778 ####[facility] [address] [place] [address] Chloride [Moles/Vol] 105 mmol/L Normal 101-111 [facility] Comment on above: Performed By: #### 2 725445, 1495869, 21841083, 5777834, 8372608 ####[facility] [address] [place] [address] CO2 [Moles/Vol] 23 mmol/L Normal 21-31 [facility] Comment on above: Performed By: #### 2 632168, 6275053, 40511358, 0353044, 8381020 ####[facility] [address] [place] [address] Creatinine [Mass/Vol] 0.8 mg/dL Normal 0.5-1.3 [facility] Comment on above: Performed By: #### 2 509058, 2295388, 12993652, 3118553, 7429788 ####[facility] [address] [place] [address] Glucose [Mass/Vol] 95 mg/dL Normal 55-199 [facility] Comment on above: Performed By: #### 2 934531, 9419358, 77778199, 5602322, 9540939 ####[facility] [address] [place] [address] Potassium [Moles/Vol] 3.1 mmol/L Low 3.5-5.3 [facility] Comment on above: Performed By: #### 2 190126, 5552089, 25739170, 9938703, 6660847 ####[facility] [address] [place] [address] Sodium [Moles/Vol] 138 mmol/L Normal 135-145 [facility] Comment on above: Performed By: #### 2 789614, 8545736, 55821258, 6771839, 0514292 ####[facility] [address] [place] [address] Urea nitrogen [Mass/Vol] 7 mg/dL Normal 5-21 [facility] Comment on above: Performed By: #### 2 676641, 9991961, 21340356, 0641816, 2168407 ####[facility] [address] [place] [address] Urea nitrogen/Creatinine [Mass ratio] 9 No Units Low 10-20 [facility] Comment on above: Performed By: #### 2 439864, 0305922, 39548987, 9728055, 2013233 ####[facility] [address] [place] [address] CBC w/ Auto Diffon 4 Basophils/100 WBC (Bld) 0.3 % Normal 0.0-2.0 [facility] Comment on above: Performed By: #### 2 744500, 0967987, 17365579, 8599838, 8502753 ####[address] [address] Basophils/Leukocytes Auto (Bld) [Pure # fraction] 0.0 E9/L Normal 0.0-0.2 [facility] Comment on above: Performed By: #### 2 753924, 1215617, 53467856, 1954534, 7462990 ####[facility] [address] [place] [address] Eosinophils (Bld) [#/Vol] 0.0 E9/L Normal 0.0-0.5 [facility] Comment on above: Performed By: #### 2 762075, 6083365, 04979369, 1017871, 0390856 ####[address] [address] Eosinophils/100 WBC (Bld) 0.4 % Normal 0.0-8.0 [facility] Comment on above: Performed By: #### 2 065085, 3965326, 25402224, 9636136, 5892172 ####[address] [address] Erythrocyte distribution width (RBC) [Ratio] 18.3 % High 10.9-14.2 [facility] Comment on above: Performed By: #### 2 197249, 7744860, 18601655, 5234693, 2475319 ####[address] [address] Hematocrit (Bld) [Volume fraction] 32.6 % Low 34.0-46.0 [facility] Comment on above: Performed By: #### 2 188293, 7120515, 54055901, 1933467, 0639965 ####[address] [address] Hemoglobin (Bld) [Mass/Vol] 10.3 g/dL Low 12.0-16.0 [facility] Comment on above: Performed By: #### 2 717627, 8181019, 85196947, 6245143, 6736522 ####[address] [address] Lymphocytes (Bld) [#/Vol] 4.1 E9/L High 1.0-4.0 [facility] Comment on above: Performed By: #### 2 153038, 4354899, 96927903, 9783473, 2873094 ####[facility] [address] [place] [address] Lymphocytes/100 WBC (Bld) 39.5 % Normal 14.0-50.0 [facility] Comment on above: Performed By: #### 2 735606, 1347307, 48315583, 6249732, 9601616 ####[address] [address] MCH (RBC) [Entitic mass] 23.7 pg Low 27.0-34.0 [facility] Comment on above: Performed By: #### 2 984013, 7795711, 45393518, 2404526, 6032735 ####[address] [address] MCHC (RBC) [Mass/Vol] 31.7 g/dL Normal 31.4-36.0 [facility] Comment on above: Performed By: #### 2 344660, 2453947, 88779930, 0414069, 9698765 ####[address] [address] MCV (RBC) [Entitic vol] 74.9 fL Low 80.0-100.0 [facility] Comment on above: Performed By: #### 2 522645, 9515453, 49382355, 4340555, 0296658 ####[place] [address] Monocytes (Bld) [#/Vol] 0.7 E9/L Normal 0.2-1.0 [facility] Comment on above: Performed By: #### 2 414658, 3551886, 76630485, 6976823, 5627402 ####[address] [address] Neutrophils (Bld) [#/Vol] 5.4 E9/L Normal 2.0-7.5 [facility] Comment on above: Performed By: #### 2 443994, 7340777, 85915058, 7010049, 4448071 ####[place] [address] [place] [address] Neutrophils/100 WBC (Bld) 53.1 % Normal 36.0-75.0 [facility] Comment on above: Performed By: #### 2 952203, 0171866, 40441894, 7291958, 2889036 ####[place] [address] [place] [address] Platelet 476.0 E9/L Normal 150.0-500.0 [facility] Comment on above: Performed By: #### 2 635490, 9212489, 96088357, 5613813, 6825351 ####[address] [address] Platelet mean volume (Bld) [Entitic vol] 7.7 fL Normal 6.4-10.8 [facility] Comment on above: Performed By: #### 2 367756, 9656206, 84432857, 9242610, 6647639 ####[address] [address] RBC (Bld) [#/Vol] 4.3 E12/L Normal 4.3-5.9 [facility] Comment on above: Performed By: #### 2 275492, 2718672, 85008664, 9076643, 7886708 ####[address] [address] WBC corrected for nucl RBC Auto (Bld) [#/Vol] 10.3 E9/L Normal 4.0-11.0 [facility] Comment on above: Performed By: #### 2 661817, 1931282, 72764273, 8524562, 7449065 ####[address] [address] CHEMISTRYOrdered By: SYSTEM SYSTEM on 09-30-2023 Albumin [...] Remisol Chem Discharge Instructionson Discharge Instructions [id number]. [id number] Normal [facility] ED Clinical Summaryon 2023 ED Clinical Summary [place] [id number] ED Clinical Summary Person Information Name: ANTONIA NOYOLA/Michelle Age: 38 Years : 1985 Sex: Female Language: Citizen Of [place] PCP: NONE, XXXX Marital Status: Visit Id: [...] 09/30/2023 02:15:05 ADDRESS: [address] [place] [id number] PHYS DOC NOTES: MEDICAL INFORMATION: Prescriptions Given: [...] Follow up: With: Address: When: Rose Royal [address] [place] [address], [address] [address] Business (1) In 3 days 10/03/2023 DIAGNOSIS: AP (abdominal pain); Ovarian cyst Normal [facility] ED Note-Physicianon 09-30-19 ED Note-Physician Basic Information [...] taking oral tramadol, Toradol, Bentyl, and a Phoenix at home and has had no significant relief. She does have some nausea but no vomiting. No change in bowel movements. No urinary symptoms. She reports that she has had multiple ovarian cysts and did schedule a CHIEF INVESTIGATOR appointment for possible hysterectomy but that is [...] Problems Differential Diagnosis: [] [facility] Data External documents reviewed: N/A My [...] of 3.1 but is otherwise overall reassuring. cost recovery technician reports that the ovarian cyst on [...] the information for Dr. Royal and another CHIEF INVESTIGATOR in the area to see if he [...] mg/2 mL (more content not included)... Normal [facility] Comment on above: Result Comment: [...] Follow these instructions at home: ? Take oynf-ott-urkfiez and prescription medicines only as told by [...] Reviewed: 11/06/2020 Elsevier Patient Education ? 2022 [employer] Normal [facility] ED Patient Summaryon 024 ED Patient Summary [address] [address] Patient Discharge Instructions Person Information Name: ANTONIA NOYOLA Age: 38 Years Arrival Date: 09/29/2023 23:38:37 Discharge Diagnosis: AP (abdominal pain); Ovarian cyst Primary Care Physician: SHAZIA, XXXX Provider Information Primary Provider: Ritesh Heath DO Advanced Jewelry Designer:Shazia The exam and treatment you received in the Emergency Department were for an urgent problem and are not intended as complete care. It is important that you follow up with a doctor, nurse practitioner, or physician?s assistant professor of nursing for ongoing care. If your symptoms become worse or you do not improve as expected and you are unable to reach your usual health care provider, you should return to the Emergency Department. We are available 24 hours a day. ANTONIA NOYOLA has been given the following list of patient education materials, prescriptions and follow-up instructions: Follow-up Instructions: With: Address: When: Rose Royal [address] [place] [address], [place] [address], [place] [address] Business (1) In 3 days 10/03/2023 In the event that this physician does not participate in your insurance network, please consult with your insurance company to find a nearby participating provider. Patient Education Materials: Ovarian Cyst A MESSAGE TO ALL PATIENTS REGARDING OPIOIDS PRESCRIPTION OPIOIDS: WHAT YOU NEED TO KNOW Prescription opioids can be used to help relieve ctestorz-jb-brasik pain and are often prescribed following a [...] from the Food and Drug Administration (www.fda.gov/Drugs/Res Melanie). ? Visit www.cdc.gov/drugoverdo se to learn about the risks of opioids abuse and overdose. ? If you believe you may be struggling with addiction, tell your health child day care center worker and ask for guidance or call [facility]?S National Helpline at 2-866-214-HELP. v Source: [place] Department o (more content not included)... Normal [facility] HEMATOLOGYOrdered By: SYSTEM SYSTEM on 09-30-2023 Basophils/100 [...] 09-30-2023 Albumin [Mass/Vol] 4.4 g/dL Normal 3.3-5.0 [facility] Comment on above: Performed By: #### 2 552133, 6276711, 26157820, 3930123, 8319244 ####[facility] [address] [place] [address] Albumin/Globulin (S) [Mass conc ratio] 1.5 Normal 1.1-2.2 [facility] Comment on above: Performed By: #### 2 463883, 1576872, 87728896, 6024623, 1703219 ####[facility] [address] [place] [address] ALP [Catalytic activity/Vol] 64 Int._Unit/L Normal 21-98 [facility] Comment on above: Performed By: #### 2 655348, 3221623, 17289938, 2491738, 3525090 ####[facility] [address] [place] [address] ALT No additional P-5'-P [Catalytic activity/Vol] 9 Int._Unit/L Normal 6-46 [facility] Comment on above: Performed By: #### 2 569181, 2953112, 24310656, 3278737, 7542459 ####[facility] [address] [place], [place] [address] AST [Catalytic activity/Vol] 12 Int._Unit/L Normal 5-43 [facility] Comment on above: Performed By: #### 2 887375, 8415091, 63931173, 8045971, 7048837 ####[facility] [address] [place] [address] Bilirubin [Mass/Vol] 0.2 mg/dL Normal 0.0-1.1 [facility] Comment on above: Performed By: #### 2 414538, 4427256, 09263762, 4892038, 8352895 ####[place] [address]957 Bilirubin.direct [Mass/Vol] 0.0 mg/dL Normal 0.0-0.4 [facility] Comment on above: Performed By: #### 2 151354, 9360779, 03651005, 8478826, 8467521 ####[place] [address] Bilirubin.indirect [Mass or moles/Vol] 0.2 mg/dL Normal 0.1-0.9 [facility] Comment on above: Performed By: #### 2 173006, 2243893, 73986382, 7814579, 5179240 ####[address] [address] Globulin (S) [Mass/Vol] 3.0 g/dL Normal 1.4-4.0 [facility] Comment on above: Performed By: #### 2 556288, 7877151, 96969372, 9122795, 3662262 ####[facility] [address] [place] [address] Protein [Mass/Vol] 7.4 g/dL Normal 6.0-7.8 [facility] Comment on above: Performed By: #### 2 875697, 1867848, 36339541, 6880355, 0245932 ####[facility] [address] [place] [address] Lipase Levelon 09-30-2023 Lipase [Catalytic activity/Vol] 61 U/L High 13-58 [facility] Comment on above: Performed By: #### 2 953840, 3906522, 91148388, 5229050, 1486587 ####[facility] [address] [place] [address] SEROLOGYOrdered By: Ariadne Sheehan on 09-30-2023 HCG.beta subunit (U) [Moles/Vol] Negative Normal [facility] [place] Sero U BetaHcg Qualon 09-30-2023 HCG.beta subunit (U) [Moles/Vol] Negative Normal [facility] Comment on above: Performed By: #### 2 8768111 ####[facility] [address] [place] [address] UA with Cult Rflxon 09-30-19 24 Bacteria Auto Ql (U) Trace Normal Trace [facility] Comment on above: Performed By: #### 2 461716 #### [facility] [address] [place] [address] Bilirubin Ql (U) Negative Normal Negative [facility] Comment on above: Performed By: #### 2 288271 #### [facility] [address] [place] [address] Clarity (U) Clear Normal Clear [facility] Comment on above: Performed By: #### 2 306195 #### [facility] [address] [place] [address] Color (U) Light-Yellow Normal Yellow [facility] Comment on above: Result Comment: Micr oscopic readings are only performed on those samples that meet specific criteria set forth by [facility]. Performed By: #### 2 563055 #### [facility] [address] [place] [address] Epithelial cells.squamous Auto (Urine sed) [#/Area] 3-4 Abnormal 0-2 [facility] Comment on above: Performed By: #### 2 612546 #### [facility] [address] [place] [address] Glucose Ql (U) Negative Normal Negative [facility] Comment on above: Performed By: #### 2 757489 #### [facility] [address] [place] [address] Hemoglobin Auto test strip (U) [Mass/Vol] Trace Abnormal Negative [facility] Comment on above: Performed By: #### 2 861467 #### [facility] [address] [place] [address] Ketones Auto test strip Ql (U) Negative Normal Negative [facility] Comment on above: Performed By: #### 2 790203 #### [facility] [address] [place] [address] Leukocyte esterase Auto test strip Ql (U) 75 Bertrand/uL Abnormal Negative [facility] Comment on above: Performed By: #### 2 924567 #### [facility] [address] [place] [address] Mucus Auto Ql (U) Negative Normal Negative [facility] Comment on above: Performed By: #### 2 301088 #### [facility] [address] [place] [address] Nitrite Auto test strip Ql (U) Negative Normal Negative [facility] Comment on above: Performed By: #### 2 686209 #### [facility] [address] [place] [address] pH (U) 5.5 [pH] Invalid Interpretation Code 5.0-9.0 [facility] Comment on above: Performed By: #### 2 096214 #### [facility] [address] [place] [address] Protein Ql (U) Negative Normal Negative [facility] Comment on above: Performed By: #### 2 426650 #### [facility] [address] [place] [address] RBC Ql (U) 4-20 Abnormal 0-3 [facility] Comment on above: Performed By: #### 2 309779 #### [facility] [address] [place] [address] Specific gravity (U) [Rel density] 1.017 Invalid Interpretation Code 1.005-1.030 [facility] Comment on above: Performed By: #### 2 534074 #### [facility] [address] [place] [address] Urobilinogen (U) [Mass/Vol] Negative Normal Negative [facility] Comment on above: Performed By: #### 2 571730 #### [facility] [address] [place] [address] WBC Auto (Urine sed) [#/Area] 0-5 Normal 0-5 [facility] Comment on above: Performed By: #### 2 195870 #### [facility] [address] [place] [address] URINALYSISOrdered By: SYSTEM SYSTEM on 09-30-2023 Bacteria Auto Ql (U) Trace graded/HPF Normal Tra cegraded /HPF FT UA Auto SS Bilirubin Ql (U) Negative Normal Negativemg/ dL FT UA Auto SS Clarity (U) Clear (09/30/23 12:08 AM) Normal Clear [facility] UA Auto SS Color (U) Light-Yellow 1 (09/30/23 12:08 AM) Normal Yellow [facility] UA Auto SS Comment on above: Interpretive Data: M icroscopic readings are only performed on those samples that meet specific criteria set forth by [facility]. Epithelial cells.squamous Auto (Urine sed) [#/Area] [...] AM) Invalid Interpretation Code 5.0 - 9.0 [facility] UA Auto SS Protein Ql (U) Negative Normal Negativemg/ dL [facility] UA Auto SS RBC Ql (U) 4-20 graded/HPF Invalid Interpretation Code 0-3graded/H PF [facility] UA Auto SS Specific gravity (U) [Rel density] 1.017 *NA* (09/30/23 12:08 AM) Invalid Interpretation Code 1.005 - 1.030 [facility] UA Auto SS Urobilinogen (U) [Mass/Vol] Negative Normal Negativemg/ dL FT UA Auto SS WBC Auto (Urine sed) [#/Area] 0-5 graded/HPF Normal 0-5graded/H PF [facility] UA Auto SS URINALYSISOrdered By: Ritesh bishop on 09-30-2023 UA Spec Desc Clean Catch (09/30/23 12:08 AM) Normal [facility] [place] UA Auto SS Work Phone: [place] Doppler [...] MD Transcribed by: MILLIE Technologist: GERDA Miller [facility] US Pelvis Non-OB Completeon 09-30-2023 [...] Transvaginal Ultrasound Performed Uterus Position Anteverted Normal [facility] US Transvaginal Non-OBon US Transvaginal Non-OB Exam Date/Time: 09/30/2023 02:03 EDT Reason for Exam: pssible torsion, known large cyst;Other (please specify) Report PLEASE SEE US Pelvis Non-OB Complete REPORT DATED: 09/30/2023. Ordering Provider: Ivana, Ritesh FINAL REPORT Dictated: 09/30/2023 4:11 am Harvey Leslie MD Signed (Electronic Signature): 09/30/2023 4:11 am Signed by: Harvey Leslie MD Transcribed by: MILLIE Technologist: GERDA Normal [facility] eGFRon 09-30-2023 eGFR 97 mL/min/1.73 m2 Normal >=59 [facility] Comment on above: Order Comment: Order added by Discern Expert. Performed By: #### 2 091841, 5957631, 08861905, 0445855, 1086183 ####[facility] [address] [place] [address] Consent for Treatmenton 09-11 Consent for Treatment [id number] 4040 [id number]#1.0 0TIFF [facility] UA with Cult Rflxon 09-29-19 Type of Urine collection method Clean Catch [facility] Comment on above: Performed By: #### 2 972873 #### [facility] [address] [place] [address] ED Clinical Summaryon 2023 ED Clinical Summary [address] [address] ED Clinical Summary Person Information Name: ANTONIA NOYOLA/[facility] Age: 38 Years : 1985 Sex: Female Language: Citizen Of [place] PCP: NONE, XXXX Marital Status: Visit Id: [...] 18:13:56 09/26/2023 18:13:56 09/26/2023 18:13:56 ADDRESS: [address] [place] [id number] PHYS DOC NOTES: MEDICAL INFORMATION: Prescriptions Given: New Medications [facility]/pharmacy #[id number], [address] [place], [place] [id number], [phone] diflunisal (diflunisal 500 mg Tab) 1 Tablets [...] INFORMATION: Instructions: Follow up: With: Address: When: [employer] [facility] [place] [address] Business (1) In 3 days 09/29/2023 With: Address: When: [facility] [address] [place] [address] , [place], [place] [id number] Business (1) In 3 days 09/29/2023 With: Address: When: XXXX NONE , [place] In 3 days DIAGNOSIS: Abdominal pain; Constipation; Ovarian cyst Normal [facility] ED Patient Education Noteon 09-27-2023 ED Patient Education Note Normal [facility] ED Patient Summaryon 024 ED Patient Summary [address] [address] Patient Discharge Instructions Person Information Name: ANTONIA NOYOLA Age: 38 Years Arrival Date: 09/26/2023 13:54:18 Discharge Diagnosis: Abdominal pain; Constipation; Ovarian cyst Primary Care Physician: NONE, XXXX Provider Information Primary Provider: Konstantin Penny DO Advanced Jewelry Designer:None The exam and treatment you received in the Emergency Department were for an urgent problem and are not intended as complete care. It is important that you follow up with a doctor, nurse practitioner, or physician?s assistant professor of nursing for ongoing care. If your symptoms become worse or you do not improve as expected and you are unable to reach your usual health care provider, you should return to the Emergency Department. We are available 24 hours a day. ANTONIA NOYOLA has been given the following list of patient education materials, prescriptions and follow-up instructions: Follow-up Instructions: With: Address: When: [employer] [facility] [place] [address] Business (1) In 3 days 09/29/2023 With: Address: When: [facility] [address] [place] [address] [place] [address] Business (1) In 3 days 09/29/2023 [...] opioids can be used to help relieve zidwhkkz-vu-hbtjxw pain and are often prescribed following a [...] and overdose. (more content not included)... Normal [facility] B hCG Qualon 09-26-2023 Beta HCG ( test) Ql Negative Normal [facility] Comment on above: Order Comment: FER dubois attempting lab work from IV start per Pt request. Phleb on standby if unable to get labs, [id number] 09/26/2023 14:42:36 EDT Performed By: #### 2 [id number], [id number], 7131498, 8295933, 9188809 ####[facility] [address] [place] [address] CBC w/ Auto Diffon 4 Anisocytosis Ql (Bld) PRESENT Invalid Interpretation Code [facility] Comment on above: Performed By: #### 2 1132696, [id number], 0825966, 9871615, 2789237 ####[facility] [address] [place] [address] Basophils/100 WBC (Bld) 0.8 % Normal 0.0-2.0 [facility] Comment on above: Performed By: #### 2 0388677, 08703723, 4516994, 1071210, 4512870 ####[facility] [address] [place] [address] Basophils/Leukocytes Auto (Bld) [Pure # fraction] 0.1 E9/L Normal 0.0-0.2 [facility] Comment on above: Performed By: #### 2 9645415, 53573277, 9366798, 2474868, 3046432 ####[address] [address] Eosinophils (Bld) [#/Vol] 0.0 E9/L Normal 0.0-0.5 [facility] Comment on above: Performed By: #### 2 4860515, 09798225, 1470042, 7767482, 3778482 ####[address] [address] Eosinophils/100 WBC (Bld) 0.0 % Normal 0.0-8.0 [facility] Comment on above: Performed By: #### 2 7886573, 12651869, 2311865, 5977714, 4607796 ####[address] [address] Hypochromia Auto Ql (Bld) PRESENT Invalid Interpretation Code [facility] Comment on above: Performed By: #### 2 9961490, 27351556, 9021089, 0863747, 9869735 ####[address] [address] Lymphocytes (Bld) [#/Vol] 1.6 E9/L Normal 1.0-4.0 [facility] Comment on above: Performed By: #### 2 5591780, 39837925, 6372132, 6715239, 8668264 ####[address] [address] Lymphocytes/100 WBC (Bld) 22.7 % Normal 14.0-50.0 [facility] Comment on above: Performed By: #### 2 1471541, 78330730, 4722246, 4658469, 5918961 ####[address] [address] Microcytes Ql (Bld) PRESENT Invalid Interpretation Code [facility] Comment on above: Performed By: #### 2 6105153, 34655159, 3069566, 8570421, 7235161 ####[facility] [address] [place] [address] Monocytes (Bld) [#/Vol] 0.3 E9/L Normal 0.2-1.0 [facility] Comment on above: Performed By: #### 2 4314868, 45052024, 8496351, 5095866, 8807120 ####[address] [address] Neutrophils (Bld) [#/Vol] 5.1 E9/L Normal 2.0-7.5 [facility] Comment on above: Performed By: #### 2 4398505, 06035994, 7828696, 0024838, 3377494 ####[place] [address] Neutrophils/100 WBC (Bld) 71.6 % Normal 36.0-75.0 [facility] Comment on above: Performed By: #### 2 1699850, 44228090, 4014480, 6957921, 5133257 ####[place] [address] Erythrocyte distribution width (RBC) [Ratio] 17.8 % High 10.9-14.2 [facility] Comment on above: Performed By: #### 2 1673037, 00223165, 5014615, 5605441, 4443208 ####[address] [address] Hematocrit (Bld) [Volume fraction] 36.2 % Normal 34.0-46.0 [facility] Comment on above: Performed By: #### 2 4194274, 68960595, 2722877, 3516063, 0770343 ####[address] [address] Hemoglobin (Bld) [Mass/Vol] 11.2 g/dL Low 12.0-16.0 [facility] Comment on above: Performed By: #### 2 4506560, 04204596, 6005838, 2550872, 0529239 ####[facility] [address] [place] [address] MCH (RBC) [Entitic mass] 23.2 pg Low 27.0-34.0 [facility] Comment on above: Performed By: #### 2 0298019, 72400071, 7274842, 4724523, 2088379 ####[facility] [address] [place], [place] [address] MCHC (RBC) [Mass/Vol] 31.0 g/dL Low 31.4-36.0 [facility] Comment on above: Performed By: #### 2 4539734, 11349109, 2993754, 2011335, 5818508 ####[place] [address] MCV (RBC) [Entitic vol] 74.9 fL Low 80.0-100.0 F [facility] Comment on above: Performed By: #### 2 4455279, 91856015, 7907778, 5383406, 6441692 ####[facility] [address] [place] [address] Platelet mean volume (Bld) [Entitic vol] 7.5 fL Normal 6.4-10.8 [facility] Comment on above: Performed By: #### 2 0453992, 06930577, 0148948, 3617706, 2243666 ####[facility] [address] [place] [address] Platelets (Bld) [#/Vol] 461.0 E9/L Normal 150.0-500.0 [facility] Comment on above: Performed By: #### 2 9767389, 81271147, 7211681, 5802804, 4066891 ####[address] [address] RBC (Bld) [#/Vol] 4.8 E12/L Normal 4.3-5.9 [facility] Comment on above: Performed By: #### 2 3815474, 53593168, 2256544, 0941359, 6866033 ####[facility] [address] [place] [address] WBC corrected for nucl RBC Auto (Bld) [#/Vol] 7.1 E9/L Normal 4.0-11.0 [facility] Comment on above: Performed By: #### 2 9747994, 72025428, 9495996, 0651629, 8854064 ####[facility] [address] [place] [address] CHEMISTRYOrdered By: SYSTEM SYSTEM on 09-26-2023 Amphetamines [...] 09-26-2023 Albumin [Mass/Vol] 4.7 g/dL Normal 3.3-5.0 [facility] Comment on above: Performed By: #### 2 1155671, 17864224, 4454749, 2015664, 1303684 ####[facility] [address] [place] [address] Albumin/Globulin (S) [Mass conc ratio] 1.3 Normal 1.1-2.2 [facility] Comment on above: Performed By: #### 2 0953293, 88361793, 3173722, 3954618, 5366010 ####[place] [address] [place] [address] ALP [Catalytic activity/Vol] 61 Int._Unit/L Normal 21-98 [facility] Comment on above: Performed By: #### 2 1759187, 71639996, 1867146, 7013652, 7422887 ####[facility] [address] [place] [address] ALT No additional P-5'-P [Catalytic activity/Vol] 11 Int._Unit/L Normal 6-46 [facility] Comment on above: Performed By: #### 2 0025076, 72203185, 4961448, 1825855, 9671952 ####[facility] [address] [place] [address] Anion gap [Moles/Vol] 15 mmol/L Normal 6-16 [facility] Comment on above: Performed By: #### 2 6958163, 22969389, 1625071, 7772210, 2767887 ####[facility] [address] [place] [address] AST [Catalytic activity/Vol] 16 Int._Unit/L Normal 5-43 [facility] Comment on above: Performed By: #### 2 8347549, 82563379, 5568835, 3032256, 0496311 ####[facility] [address] [place] [address] Bilirubin [Mass/Vol] 0.8 mg/dL Normal 0.0-1.1 [facility] Comment on above: Performed By: #### 2 7386268, 09938849, 2103618, 5756746, 5288411 ####[address] [address] Calcium [Mass/Vol] 9.7 mg/dL Normal 8.9-11.1 [facility] Comment on above: Performed By: #### 2 5948069, 65046617, 5886957, 4060636, 3886740 ####[facility] [address] [place] [address] Chloride [Moles/Vol] 107 mmol/L Normal 101-111 [facility] Comment on above: Performed By: #### 2 2051893, 73260218, 4746117, 9033437, 7084497 ####[place] [address] [place] [address] CO2 [Moles/Vol] 20 mmol/L Low 21-31 [facility] Comment on above: Performed By: #### 2 5871065, 44663991, 3348687, 5856772, 7111471 ####[facility] [address] [place] [address] Creatinine [Mass/Vol] 0.7 mg/dL Normal 0.5-1.3 [facility] Comment on above: Performed By: #### 2 0147952, 64908343, 4771370, 6141067, 6081989 ####[facility] [address] [place] [address] Globulin (S) [Mass/Vol] 3.6 g/dL Normal 1.4-4.0 F [facility] Comment on above: Performed By: #### 2 6833201, 45834172, 4694464, 9847807, 3438091 ####[facility] [address] [place] [address] Glucose [Mass/Vol] 120 mg/dL Normal 55-199 [facility] Comment on above: Performed By: #### 2 4486396, 19587843, 4757326, 8351460, 6118032 ####[facility] [address] [place] [address] Potassium [Moles/Vol] 3.8 mmol/L Normal 3.5-5.3 [facility] Comment on above: Performed By: #### 2 0897803, 62401607, 9849634, 8367469, 6658554 ####[facility] [address] [place] [address] Protein [Mass/Vol] 8.3 g/dL High 6.0-7.8 [facility] Comment on above: Performed By: #### 2 0725841, 84721579, 7608723, 7147892, 0686445 ####[facility] [address] [place] [address] Sodium [Moles/Vol] 138 mmol/L Normal 135-145 [facility] Comment on above: Performed By: #### 2 5530397, 63472691, 7978463, 7866601, 8470164 ####[facility] [address] [place] [address] Urea nitrogen [Mass/Vol] 5 mg/dL Normal 5-21 [facility] Comment on above: Performed By: #### 2 9576746, 73246230, 1840533, 6530044, 0767420 ####[facility] [address] [place] [address] Urea nitrogen/Creatinine [Mass ratio] 7 No Units Low 10-20 [facility] Comment on above: Performed By: #### 2 8770160, 53498276, 7738228, 8509866, 6400289 ####[facility] [address] [place] [address] CT Abdomen/Pelvis w/ Contras maxi 09-26-2023 CT Abdomen/Pelvis w/ Contrast Exam Date/Time: [...] 300 Contrast amount in ml's: 100 Normal [facility] Consent for Treatmenton 09-11 Consent for Treatment [id number] 0TIFF Normal [facility] Discharge Instructionson Discharge Instructions [id number] 0TIFF Normal [facility] ED Note-Physicianon 09-26-19 ED Note-Physician Basic Information Time Seen: Konstantin Penny DO 09/26/2023 14:25 Chief Complaint c/o nausea and left abdominal pain radiating to back that started back up yesterday. took bentyl ibuprofen and tramadol around noon with no relief. recent admission to [place] a week ago for intusseption, ovarian cyst, elevated lactic. denies V/D History of Present Illness 38 year old female presents to the emergency department with chief complaint of abdominal pain. patient states this pain started yesterday and has associated nausea without vomiting. Patient states she was admitted 10 days ago to [facility] for intussusception, ovarian cysts, and elevated lactic. She states she was admitted for one day and that she had another CT done that showed resolution of the intussusception. She reports she was discharged home but went back to [place] ED yesterday for similar pain. She reports [...] and noted. We did review workup from [facility] just recently. Risks and benefits of [...] differential diagnosis. We did refer her to BIOINFORMAT[facility] SCIENT[facility] for follow-up. Patient also was found to have some constipation on CT therefore we talked about dietary and lifestyle modifications and I did prescribe MiraLAX here as well. She is to follow-up in the outpatient setting return to ER symptoms should change or worsen she is comfortable with this plan. I, Dr. Penny had a orbb-mi-wtnu interaction with the patient. I personally performed [...] q12hr, # 20 tab(s), Refills(s) 0, [id number], 165, cm, 09/26/23 14:18:00 EDT, Height/Length Dosing, 81.2, kg, 09/26/23 14:18:00 EDT, Weight Dosing hyoscyamine, 0.125 mg = 1 tab(s), Oral, QID, X 5 day(s), # 20 tab(s), Refills(s) 0, Pharmacy: [facility]/pharmacy #[id number], 165, cm, 09/26/23 14:18:00 EDT, Height/Length Dosing, 81.2, kg, 09/26/23 14:18:00 EDT, Weight Dosing ketorolac, 30 mg = 1 mL, Injection, IV, Once, Stop date 09/26/23 15:40:00 EDT, STAT, Start date 09/26/23 15:40:00 EDT, 09/26/23 15:40:00 EDT polyethylene glycol 3350, 17 gm, Oral, Daily, X 7 day(s), # 119 gm, Refills(s) 0, [id number], 165, cm, 09/26/23 14:18:00 EDT, (more content not included)... [facility] Comment on above: Result Comment: Elec [...] Lipase [Catalytic activity/Vol] 18 U/L Normal 13-58 [facility] Comment on above: Performed By: #### 2 2712397, 54179148, 7663479, 6554790, 7271866 ####[facility] [address] [place] [address] Outside Recordson 09-26-2023 Outside Records [id number]. [id number] Normal [facility] SEROLOGYOrdered By: Nohemi Taylor on 09-26-2023 Beta HCG ( test) Ql Negative (09/26/23 2:45 PM) Normal [facility] [place] Sero U Drug Screenon 09-26-2023 Amphetamines Screen method >1000 ng/mL Ql (U) Negative Normal NEGATIVE [facility] Comment on above: Result Comment: Nega tive Cutoff: <1000 ng/mL Performed By: #### 2 856755 #### [facility] [address] [place] [address] Barbiturates Screen Ql (U) Negative Normal NEGATIVE [facility] Comment on above: Result Comment: Nega tive Cutoff: <200 ng/mL Performed By: #### 2 152679 #### [facility] [address] [place] [place] [address] Benzodiazepines Ql (U) Negative Normal NEGATIVE [facility] Comment on above: Result Comment: Nega tive Cutoff: <200 ng/mL Performed By: #### 2 389594 #### [facility] [address] [place] [address] Cannabinoids Screen Ql (U) Negative Normal NEGATIVE [facility] Comment on above: Result Comment: Nega tive Cutoff: <50 ng/mL Performed By: #### 2 531091 #### [facility] [address] [place] [address] Cocaine Ql (U) Negative Normal NEGATIVE [facility] Comment on above: Result Comment: Nega tive Cutoff: <300 ng/mL Performed By: #### 2 218093 #### [facility] [address] [place] [address] Opiates Screen Ql (U) Negative Normal NEGATIVE [facility] Comment on above: Result Comment: Nega tive Cutoff: <300 ng/mL Performed By: #### 2 189189 #### [facility] [address] [place] [address] Phencyclidine Screen method >25 ng/mL Ql (U) Negative Normal NEGATIVE [facility] Comment on above: Result Comment: Nega tive Cutoff: <25 ng/mL These drug screen results are to be used for medical (i.e., treatment) purposes only. Unconfirmed drug screening results must not be used for non-medical purposes (e.g., employment testing, legal testing). Performed By: #### 2 532589 #### [facility] [address] [place] [address] U Fentanyl Negative Normal NEGATIVE [facility] Comment on above: Result Comment: Nega tive Cutoff: <5 ng/mL These drug screen results are to be used for medical (i.e., treatment) purposes only. Unconfirmed drug screening results must not be used for non-medical purposes (e.g., employment testing, legal testing). Performed By: #### 2 652231 #### [facility] [address] [place] [address] UA with Cult Rflxon 09-26-19 24 Bilirubin Ql (U) Negative Normal Negative [facility] Comment on above: Performed By: #### 4 [id number] #### [facility] [address] [place] [address] Clarity (U) Clear Normal Clear [facility] Comment on above: Performed By: #### 4 [id number] #### [facility] [address] [place] [address] Color (U) Colorless Abnormal Yellow [facility] Comment on above: Result Comment: Micr oscopic readings are only performed on those samples that meet specific criteria set forth by [facility]. Performed By: #### 4 [id number] #### [facility] [address] [place] [address] Glucose Ql (U) Negative Normal Negative [facility] Comment on above: Performed By: #### 4 [id number] #### [facility] [address] [place] [address] Hemoglobin Auto test strip (U) [Mass/Vol] Negative Normal Negative [facility] Comment on above: Performed By: #### 4 [id number] #### [facility] [address] [place] [address] Ketones Auto test strip Ql (U) Negative Normal Negative [facility] Comment on above: Performed By: #### 4 [id number] #### [facility] [address] [place] [address] Leukocyte esterase Auto test strip Ql (U) Negative Normal Negative [facility] Comment on above: Performed By: #### 4 [id number] #### [facility] [address] [place] [address] Nitrite Auto test strip Ql (U) Negative Normal Negative [facility] Comment on above: Performed By: #### 4 [id number] #### [facility] [address] [place] [address] pH (U) 6.0 [pH] Invalid Interpretation Code 5.0-9.0 [facility] Comment on above: Performed By: #### 4 [id number] #### [facility] [address] [place] [address] Protein Ql (U) Negative Normal Negative [facility] Comment on above: Performed By: #### 4 [id number] #### [facility] [address] [place] [address] Specific gravity (U) [Rel density] 1.004 Invalid Interpretation Code 1.005-1.030 [facility] Comment on above: Performed By: #### 4 [id number] #### [facility] [address] [place] [address] Urobilinogen (U) [Mass/Vol] Negative Normal Negative [facility] Comment on above: Performed By: #### 4 [id number] #### [facility] [address] [place] [address] Type of Urine collection method Clean Catch Normal [facility] Comment on above: Performed By: #### 4 [id number] #### [facility] [address] [place] [address] URINALYSISOrdered By: SYSTEM SYSTEM on 09-26-2023 Bilirubin Ql (U) Negative Normal Negativemg/ dL [facility] [place] UA Auto SS Clarity (U) Clear (09/26/23 2:49 PM) Normal Clear [facility] [place] UA Auto SS Color (U) Colorless 3 *ABN* (09/26/23 2:49 PM) Invalid Interpretation Code Yellow [facility] [place] [facility]A Auto SS Comment on above: Interpretive Data: M icroscopic readings are only performed on those samples that meet specific criteria set forth by [facility]. Glucose Ql (U) Negative Normal Negativemg/ [...] Normal Negativemg/ dL FT UA Auto SS pH (U) 6.0 *NA* (09/26/23 2:49 PM) Invalid Interpretation Code 5.0 - 9.0 [facility] [place] UA Auto SS Protein Ql (U) Negative Normal Negativemg/ dL [facility] [place] [place] UA Auto SS Specific gravity (U) [Rel density] 1.004 *NA* (09/26/23 2:49 PM) Invalid Interpretation Code 1.005 - 1.030 [facility] [place] [place] UA Auto SS Urobilinogen (U) [Mass/Vol] Negative Normal Negativemg/ dL [facility] [place] UA Auto SS URINALYSISOrdered By: Konstantin dillard on 09-26-2023 UA Spec Desc Clean Catch (09/26/23 2:49 PM) Normal [facility] [place] UA Auto SS Work Phone: US Pelvis [...] Transvaginal Ultrasound Performed Uterus Position Anteverted Normal [facility] US Transvaginal Non-OBon US Transvaginal Non-OB Exam Date/Time: 09/26/2023 17:41 EDT Reason for Exam: Pelvic pain Report Please see ultrasound pelvis non-OB complete report Ordering Provider: Konstantin Penny FINAL REPORT Dictated: 09/26/2023 5:53 pm Chad Mo DO Signed (Electronic Signature): 09/26/2023 5:53 pm Signed by: Chad Mo DO Transcribed by: MILLIE Technologist: HAILEY Miller [facility] eGFRon 09-26-2023 eGFR 114 mL/min/1.73 m2 Normal >=59 [facility] Comment on above: Order Comment: Order added by Discern Expert. Performed By: #### 2 [id number], [id number], 6963221, 5410323, 7363999 ####[facility] [address] [place] [address] CBC With Platelet and Differ entialon 09-06-2023 Basophils (Bld) [#/Vol] 0.1 10*3/uL Normal 0.0-0.2 [facility] Comment on above: Performed By: #### C BCWD #### [facility] [address] [place] [address] Basophils/100 WBC (Bld) 0.6 % Normal [facility] Comment on above: Performed By: #### C BCWD #### [facility] [address] [place] [address] Eosinophils (Bld) [#/Vol] 0.1 10*3/uL Normal 0.0-0.7 [facility] Comment on above: Performed By: #### C BCWD #### [facility] [address] [place] [address] Eosinophils/100 WBC (Bld) 0.6 % Normal [facility] Comment on above: Performed By: #### C BCWD #### [facility] [address] [place] [address] Erythrocyte distribution width (RBC) [Ratio] 15.9 % Critically high 11.5-14.5 [facility] Comment on above: Performed By: #### C BCWD #### [facility] [address] [place] [address] Hematocrit (Bld) [Volume fraction] 34.5 % Low 37.0-47.0 [facility] Comment on above: Performed By: #### C BCWD #### [facility] [address] [place] [address] Hemoglobin (Bld) [Mass/Vol] 10.1 g/dL Low 12.0-16.0 [facility] Comment on above: Performed By: #### C BCWD #### [facility] [address] [place] [address] Lymphocytes (Bld) [#/Vol] 4.4 10*3/uL Normal 1.0-4.8 [facility] Comment on above: Performed By: #### C BCWD #### [facility] [address] [place] [address] Lymphocytes/100 WBC (Bld) 54.2 % Normal [facility] Comment on above: Performed By: #### C BCWD #### [facility] [address] [place] [address] MCH (RBC) [Entitic mass] 22.9 pg Low 27.0-31.3 [facility] Comment on above: Performed By: #### C BCWD #### [facility] [address] [place] [address] MCHC 29.3 % Low 33.0-37.0 [facility] Comment on above: Performed By: #### C BCWD #### [facility] [address] [place] [address] MCV (RBC) [Entitic vol] 78.2 fL Low 79.4-94.8 [facility] Comment on above: Performed By: #### C BCWD #### [facility] [address] [place] [address] Monocytes (Bld) [#/Vol] 0.5 10*3/uL Normal 0.2-0.8 [facility] Comment on above: Performed By: #### C BCWD #### [facility] [address] [place] [address] Monocytes/100 WBC (Bld) 6.5 % Normal [facility] Comment on above: Performed By: #### C BCWD #### [facility] [address] [place] [address] Neutrophils (Bld) [#/Vol] 3.1 10*3/uL Normal 1.4-6.5 [facility] Comment on above: Performed By: #### C BCWD #### [facility] [address] [place] [address] Neutrophils/100 WBC (Bld) 37.9 % Normal [facility] Comment on above: Performed By: #### C BCWD #### [facility] [address] [place] [address] Platelets (Bld) [#/Vol] 482 10*3/uL Critically high 130-40 0 [facility] Comment on above: Performed By: #### C BCWD #### [facility] [address] [place] [address] RBC (Bld) [#/Vol] 4.41 10*6/uL Normal 4.20-5.40 [facility] Comment on above: Performed By: #### C BCWD #### [facility] [address] [place] [address] WBC (Bld) [#/Vol] 8.1 10*3/uL Normal 4.8-10.8 [facility] Comment on above: Performed By: #### C BCWD #### [facility] [address] [place] [address] Comprehensive Metabolic Pane van 09-06-2023 Albumin [Mass/Vol] 4.4 g/dL Normal 3.5-4.6 [facility] Comment on above: Performed By: #### C MP #### [facility] [address] [place] [address] ALP [Catalytic activity/Vol] 72 U/L Normal 40-130 [facility] Comment on above: Performed By: #### C MP #### [facility] [address] [place] [address] ALT [Catalytic activity/Vol] 15 U/L Normal 0-33 [facility] Comment on above: Performed By: #### C MP #### [facility] [address] [place] [address] Anion gap [Moles/Vol] 11 mmol/L Normal 9-15 [facility] Comment on above: Performed By: #### C MP #### [facility] [address] [place] [address] AST [Catalytic activity/Vol] 18 U/L Normal 0-35 [facility] Comment on above: Performed By: #### C MP #### [facility] [address] [place] [address] Bilirubin [Mass/Vol] 0.4 mg/dL Normal 0.2-0.7 [facility] Comment on above: Performed By: #### C MP #### [facility] [address] [place] [address] Calcium [Mass/Vol] 9.5 mg/dL Normal 8.5-9.9 [facility] Comment on above: Performed By: #### C MP #### [facility] [address] [place] [address] Chloride [Moles/Vol] 102 mmol/L Normal 95-107 [facility] Comment on above: Performed By: #### C MP #### [facility] [address] [place] [address] CO2 [Moles/Vol] 24 mmol/L Normal 20-31 [facility] Comment on above: Performed By: #### C MP #### [facility] [address] [place] [address] Creatinine [Mass/Vol] 0.59 mg/dL Normal 0.50-0.90 [facility] Comment on above: Performed By: #### C MP #### [facility] [address] [place] [address] GFR >90.0 Normal >60 [facility] Comment on above: Result Comment: Meghan atric [...] secretion. Performed By: #### C MP #### [facility] [address] [place] [address] Globulin (S) [Mass/Vol] 3.5 g/dL Normal 2.3-3.5 [facility] Comment on above: Performed By: #### C MP #### [facility] [address] [place] [address] Glucose [Mass/Vol] 98 mg/dL Normal 70-99 [facility] Comment on above: Performed By: #### C MP #### [facility] [address] [place] [address] Potassium [Moles/Vol] 3.2 mmol/L Low 3.4-4.9 [facility] Comment on above: Performed By: #### C MP #### [facility] [address] [place] [address] Protein [Mass/Vol] 7.9 g/dL Normal 6.3-8.0 [facility] Comment on above: Performed By: #### C MP #### [facility] [address] [place] [address] Sodium [Moles/Vol] 137 mmol/L Normal 135-144 [facility] Comment on above: Performed By: #### C MP #### [facility] [address] [place] [address] Urea nitrogen [Mass/Vol] 4 mg/dL Low 6-20 [facility] Comment on above: Performed By: #### C MP #### [facility] [address] [place] [address] US NON OB TRANSVAGINALon US NON OB [...] Jessy Campos MD 09/06/23 Final result Normal [facility] US PELVIS COMPLETEon 024 US PELVIS COMPLETE [...] Jessy Campos MD 09/06/23 Final result Normal [facility] Urinalysis, reflex to cultur silvino 09-06-2023 Urine Reflexed to Culture Not Indicated Normal [facility] Comment on above: Performed By: #### U AR #### [facility] [address] [facility] [address] Bilirubin Ql (U) Negative Normal Negative [facility] Comment on above: Performed By: #### U AR #### [facility] [address] [place] [address] Clarity (U) Clear Normal Clear [facility] Comment on above: Performed By: #### U AR #### [facility] [address] [place] [address] Color (U) Yellow Normal Straw/Chatham [facility] Comment on above: Performed By: #### U AR #### [facility] [address] [place] [address] Glucose Ql (U) >=1000 Abnormal Negative [facility] Comment on above: Performed By: #### U AR #### [facility] [address] [place] [address] Hemoglobin Ql (U) TRACE Abnormal Negative [facility] Comment on above: Performed By: #### U AR #### [facility] [address] [place] [address] Ketones Ql (U) >=80 Abnormal Negative [facility] Comment on above: Performed By: #### U AR #### [facility] [address] [place] [address] Leukocyte esterase Test strip Ql (U) Negative Normal Negative [facility] Comment on above: Performed By: #### U AR #### [facility] [address] [place] [address] Nitrite Ql (U) Negative Normal Negative [facility] Comment on above: Performed By: #### U AR #### [facility] [address] [place] [address] pH (U) 5.0 [pH] Normal 5.0-9.0 [facility] Comment on above: Performed By: #### U AR #### [facility] [address] [place] [address] Protein Ql (U) TRACE Abnormal Negative [facility] Comment on above: Performed By: #### U AR #### [facility] [address] [place] [address] Specific gravity (U) [Rel density] 1.025 Normal 1.005-1.03 [facility] Comment on above: Performed By: #### U AR #### [facility] [address] [place] [address] Urobilinogen Qn (U) 0.2 {Ivone'U}/dL Normal < 2.0 [facility] Comment on above: Performed By: #### U AR #### [facility] [address] [place] [address] Urine Microscopicon 09-06-19 24 Bacteria LM.HPF (Urine sed) [#/Area] Negative Normal Negative [facility] Comment on above: Performed By: #### U ARELIS #### [facility] [address] [place] [address] Urine Epithelial Cells Auto 0-2 Normal 0-5 [facility] Comment on above: Performed By: #### U ARELIS #### [facility] [address] [place] [address] Urine Hyaline Casts Auto 0-1 Normal 0-5 [facility] Comment on above: Performed By: #### U ARELIS #### [facility] [address] [place] [address] Urine RBC Auto 3-5 Abnormal 0-5 [facility] Comment on above: Performed By: #### U ARELIS #### [facility] [address] [place] [address] Urine WBC Auto 0-2 Normal 0-5 [facility] Comment on above: Performed By: #### U ARELIS #### [facility] [address] [place] [address] ED Note-Physicianon 08-01-19 24 ED Note-Physician Basic [...] endometritis for which she follows with a CHIEF INVESTIGATOR at the [facility]. Review of Systems A 10 [...] for discharge home and follow-up with her CHIEF INVESTIGATOR. Short course of pain medication as prescribed after an OARRS review for this patient. Return precautions were discussed. All questions were answered. The patient was discharged home for outpatient follow-up for her acute on chronic pain. Assessment/Plan Abdominal pain, acute (R10.9: Unspecified abdominal pain) Ordered: acetaminophen-oxycodon e, 1 tab(s), Oral, q6hr Pain 8-10 for 3 day(s), 12 tab(s), Refill(s) 0, [facility]/pharmacy #[id number], 165.1, cm, 07/31/23 15:42:00 [...] Discharge D (more content not included)... Normal [facility] Comment on above: Result Comment: Elec tronically Signed By: Jignesh Dumont DO\.br\Date and Time Signed: 08/01/23 09:21 EST B hCG Qualon 07-31-2023 Beta HCG ( test) Ql Negative Normal [facility] Comment on above: Performed By: #### 2 679231, 2608018, 23268857, 92377089, 0786877 ####[facility] [address] [place] [address] BMPon 07-31-2023 Anion gap [Moles/Vol] 15 mmol/L Normal 6-16 [facility] Comment on above: Performed By: #### 2 437785, 1994785, 45399533, 06092811, 5487043 ####[facility] [address] [place] [address] BUN/Creat Ratio 4 No Units Low 10-20 [facility] Comment on above: Performed By: #### 2 241523, 6732541, 46099463, 58746188, 8817401 ####[facility] [address] [place] [address] Calcium [Mass/Vol] 9.6 mg/dL Normal 8.9-11.1 [facility] Comment on above: Performed By: #### 2 800766, 3654937, 30201132, 99169368, 8424330 ####[facility] [address] [place] [address] Chloride [Moles/Vol] 106 mmol/L Normal 101-111 [facility] Comment on above: Performed By: #### 2 216979, 6937542, 04958698, 67229055, 2105133 ####[facility] [address] [place] [address] CO2 [Moles/Vol] 21 mmol/L Normal 21-31 [facility] Comment on above: Performed By: #### 2 544940, 4603951, 45777742, 89117651, 7650217 ####[facility] [address] [place] [address] Creatinine [Mass/Vol] 0.9 mg/dL Normal 0.5-1.3 [facility] Comment on above: Performed By: #### 2 770973, 7104927, 19172958, 75235389, 8878883 ####[facility] [address] [place] [address] Glucose [Mass/Vol] 109 mg/dL Normal 55-199 [facility] Comment on above: Performed By: #### 2 663588, 0957712, 57696636, 30303752, 2857808 ####[facility] [address] [place] [address] Potassium [Moles/Vol] 3.6 mmol/L Normal 3.5-5.3 [facility] Comment on above: Performed By: #### 2 296552, 1444815, 08333275, 98766581, 9459714 ####[facility] [address] [place] [address] Sodium [Moles/Vol] 138 mmol/L Normal 135-145 [facility] Comment on above: Performed By: #### 2 625254, 8688516, 14225148, 41487058, 8299148 ####[facility] [address] [place] [address] Urea nitrogen [Mass/Vol] mg/dL Low 5-21 [facility] Comment on above: Performed By: #### 2 415317, 0731115, 51571824, 02911526, 9632615 ####[facility] [address] [place] [address] CBC w/ Auto Diffon 4 Anisocytosis Ql (Bld) PRESENT Invalid Interpretation Code [facility] Comment on above: Performed By: #### 2 582706, 0776195, 26405859, 45816492, 6760098 ####[address] [address] Microcyte PRESENT Invalid Interpretation Code [facility] Comment on above: Performed By: #### 2 865566, 8312380, 19771756, 14422484, 0121502 ####[address] [address] RBC morphology finding Nom (Bld) SEE MORPHOLOGY Invalid Interpretation Code [facility] Comment on above: Performed By: #### 2 170272, 9440167, 88974177, 22232795, 6221280 ####[facility] [address] [place] [address] Basophil Absolute 0.1 E9/L Normal 0.0-0.2 [facility] Comment on above: Performed By: #### 2 640940, 0718073, 04595002, 51476434, 4870742 ####[address] [place] [address] Basophils/100 WBC (Bld) 1.1 % Normal 0.0-2.0 [facility] Comment on above: Performed By: #### 2 689033, 0735005, 58436001, 79595380, 0900879 ####[facility] [address] [place] [address] Eos Absolute 0.0 E9/L Normal 0.0-0.5 [facility] Comment on above: Performed By: #### 2 261590, 7592445, 37094723, 67318464, 3828173 ####[address] [address] Eosinophils/100 WBC (Bld) 0.2 % Normal 0.0-8.0 [facility] Comment on above: Performed By: #### 2 073005, 6284732, 57753276, 68154758, 8673970 ####[address] [address] Erythrocyte distribution width (RBC) [Ratio] 16.5 % High 10.9-14.2 [facility] Comment on above: Performed By: #### 2 323190, 1198658, 92025507, 61096942, 4161898 ####[address] [address] Hematocrit (Bld) [Volume fraction] 36.0 % Normal 34.0-46.0 [facility] Comment on above: Performed By: #### 2 192459, 5598393, 26782199, 07696406, 7790954 ####[address] [address] Hemoglobin (Bld) [Mass/Vol] 11.4 g/dL Low 12.0-16.0 [facility] Comment on above: Performed By: #### 2 092285, 1805330, 90302620, 71382269, 1596237 ####[address] [address] Lymph Absolute 2.2 E9/L Normal 1.0-4.0 [facility] Comment on above: Performed By: #### 2 110671, 5141176, 53632520, 50746278, 0289334 ####[address] [address] Lymphocytes/100 WBC (Bld) 25.3 % Normal 14.0-50.0 [facility] Comment on above: Performed By: #### 2 984503, 8892134, 15106311, 62273584, 3231488 ####[facility] [address] [place] [address] MCH (RBC) [Entitic mass] 24.0 pg Low 27.0-34.0 [facility] Comment on above: Performed By: #### 2 785871, 0627254, 09759540, 09293352, 6422732 ####[facility] [address] [place] [address] MCHC (RBC) [Mass/Vol] 31.9 g/dL Normal 31.4-36.0 [facility] Comment on above: Performed By: #### 2 824441, 0154603, 10116722, 91748911, 0886365 ####[address] [address] MCV (RBC) [Entitic vol] 75.2 fL Low 80.0-100.0 [facility] Comment on above: Performed By: #### 2 810903, 0697060, 62433645, 85770775, 3603091 ####[facility] [address] [place] [address] Hendry Absolute 0.5 E9/L Normal 0.2-1.0 [facility] Comment on above: Performed By: #### 2 000738, 9344055, 38966597, 62286640, 8669291 ####[address] [address] Monocytes/100 WBC (Bld) 5.4 % Normal 4.0-14.0 [facility] Comment on above: Performed By: #### 2 525483, 8159073, 00079955, 94447345, 1877113 ####[facility] [address] [place] [address] Neutro Absolute 5.9 E9/L Normal 2.0-7.5 [facility] Comment on above: Performed By: #### 2 928492, 1965341, 38883164, 35552644, 3237775 ####[facility] [address] [place] [address] Neutro Auto 68.0 % Normal 36.0-75.0 [facility] Comment on above: Performed By: #### 2 376236, 3784687, 72474277, 44131438, 7400235 ####[facility] [address] [place] [address] Platelet 612.0 E9/L High 150.0-500.0 [facility] Comment on above: Performed By: #### 2 470888, 9069762, 68740868, 06647295, 1126955 ####[facility] [address] [place] [address] Platelet mean volume (Bld) [Entitic vol] 7.4 fL Normal 6.4-10.8 [facility] Comment on above: Performed By: #### 2 061296, 0113584, 02614559, 42325430, 1150361 ####[facility] [address] [place] [address] RBC 4.7 E12/L Normal 4.3-5.9 [facility] Comment on above: Performed By: #### 2 087725, 4489855, 36428666, 81271620, 6491354 ####[facility] [address] [place] [address] WBC 8.6 E9/L Normal 4.0-11.0 [facility] Comment on above: Performed By: #### 2 250040, 8235870, 40710976, 42979274, 2252591 ####[facility] [address] [place] [address] CHEMISTRYOrdered By: SYSTEM SYSTEM on 07-31-2023 Albumin [...] Oral contrast amount in ml's: 0 Normal [facility] Discharge Instructionson Discharge Instructions [id number] Normal [facility] ED Clinical Summaryon 2023 ED Clinical Summary [address] [address] ED Clinical Summary Person Information Name: ANTONIA NOYOLA/Michelle Age: 38 Years : 1985 Sex: Female Language: Citizen Of [place] PCP: NONE, XXXX Marital Status: Visit Id: [...] 18:03:59 07/31/2023 18:03:59 07/31/2023 18:03:59 ADDRESS: [address] [place] [id number] PHYS DOC NOTES: MEDICAL INFORMATION: Prescriptions Given: New Medications [facility]/pharmacy #[id number], [address] [place], [place] [id number], [phone] acetaminophen-oxycodon e (Percocet 5 mg-325 mg oral [...] up: With: Address: When: Follow-up with your CHIEF INVESTIGATOR at [facility] In 3 days 08/03/2023 Comments: [...] worsening symptoms. DIAGNOSIS: Abdominal pain, acute Normal [facility] ED Patient Education Noteon 07-31-2023 ED [...] these instructions at home: Medicines ? Take rush-eev-ycmhihn and prescription medicines only as told by [...] your condition for any changes. ? Take lyyl-myz-jrtehka and prescription medicines only as told by [...] provider. Document Revised: 07/18/2020 Document Reviewed: 10/08/2019 [employer] Patient Education ? 2022 [employer] Normal [facility] ED Patient Summaryon 024 ED Patient Summary [place] [id number] Patient Discharge Instructions Person Information Name: ANTONIA NOYOLA Age: 38 Years Arrival Date: 07/31/2023 15:33:06 Discharge Diagnosis: Abdominal pain, acute Primary Care Physician: NONE, XXXX Provider Information Primary Provider: Jignesh Dumont DO Advanced Jewelry Designer:None The exam and treatment you received in the Emergency Department were for an urgent problem and are not intended as complete care. It is important that you follow up with a doctor, nurse practitioner, or physician?s assistant professor of nursing for ongoing care. If your symptoms become [...] Instructions: With: Address: When: Follow-up with your CHIEF INVESTIGATOR at [facility] In 3 days 08/03/2023 Comments: [...] opioids can be used to help relieve tcbvhrsy-tt-ndiwhb pain and are often prescribed following a [...] and al (more content not included)... Normal [facility] HEMATOLOGYOrdered By: Sloane Mazariegos on 07-31-2023 Anisocytosis [...] Low 80.0 - 100.0 fL Remisol Heme Hend[place] Absolute 0.5 E9/L Normal 0.2 - 1.0 [...] 07-31-2023 Albumin [Mass/Vol] 4.6 g/dL Normal 3.3-5.0 [facility] Comment on above: Performed By: #### 2 051631, 7568573, 00621883, 46580466, 0075427 ####[facility] [address] [place] [address] Albumin/Globulin [Mass ratio] 1.4 {ratio} Normal 1.1-2.2 [facility] Comment on above: Performed By: #### 2 472505, 1647724, 72951420, 63789103, 8380422 ####[facility] [address] [facility] [place] [address] Alk Phos 73 Int._Unit/L Normal 21-98 [facility] Comment on above: Performed By: #### 2 700425, 7226855, 70696389, 33309005, 6046196 ####[address] [place] [address] ALT 10 Int._Unit/L Normal 6-46 [facility] Comment on above: Performed By: #### 2 816841, 9418645, 64219914, 08518161, 4486893 ####[facility] [address] [place] [address] AST 11 Int._Unit/L Normal 5-43 [facility] Comment on above: Performed By: #### 2 064617, 4514650, 99238433, 63603585, 2141452 ####[facility] [address] [place] [address] Bili Direct 0.1 mg/dL Normal 0.0-0.4 [facility] Comment on above: Performed By: #### 2 846191, 3653608, 22149451, 38736955, 0632420 ####[facility] [address] [place] [address] Bili Indirect 0.4 mg/dL Normal 0.1-0.9 [facility] Comment on above: Performed By: #### 2 440399, 3194970, 67969452, 70530004, 0339692 ####[facility] [facility] [address] [place] [address] Bili Total 0.5 mg/dL Normal 0.0-1.1 [facility] Comment on above: Performed By: #### 2 334777, 3234214, [id number], 19394741, 8748301 ####[facility] [address] [place] [address] Globulin (S) [Mass/Vol] 3.3 g/dL Normal 1.4-4.0 F [facility] Comment on above: Performed By: #### 2 916310, 7317779, 47958154, 50230112, 3777239 ####[facility] [address] [place] [address] Protein [Mass/Vol] 7.9 g/dL High 6.0-7.8 [facility] Comment on above: Performed By: #### 2 483085, 5455507, 57646606, 25729168, 6415318 ####[address] [address] Monitor Recordon 07-31-2023 Monitor Record [id number] 20 [id number]#1. 00TIFF Normal [facility] SEROLOGYOrdered By: Felicity patel on 07-31-2023 Beta HCG ( test) Ql Negative (07/31/23 4:20 PM) Normal [facility] [place] Sero UA With Cult Reflexon 2023 Bacteria LM Ql (Urine sed) TRACE Normal Trace [facility] Comment on above: Performed By: #### 1 [id number] ####[address] [address] Bilirubin Ql (U) Negative Normal Negative [facility] Comment on above: Performed By: #### 1 1335487 ####[facility] [address] [place] [address] Clarity (U) CLEAR Normal Clear [facility] Comment on above: Performed By: #### 1 6633418 ####[address] [place] [address] Color (U) YELLOW Normal Yellow [facility] Comment on above: Performed By: #### 1 0674684 ####[address] [address] Epithelial cells.squamous LM.HPF (Urine sed) [#/Area] 0-2 Normal 0-2 [facility] Comment on above: Performed By: #### 1 9142402 ####[facility] [address] [place] [address] Glucose Test strip (U) [Mass/Vol] Negative Normal Negative [facility] Comment on above: Performed By: #### 1 0051010 ####[facility] [address] [place] [address] Hemoglobin Ql (U) Negative Normal Negative [facility] Comment on above: Performed By: #### 1 1635678 ####[address] [address] Ketones (U) [Mass/Vol] 1+ Abnormal Negative [facility] Comment on above: Performed By: #### 1 6848213 ####[address] [address] [place].plasma/[place]. RBC (Bld) [Mass ratio] 0-3 Normal 0-3 [facility] Comment on above: Performed By: #### 1 8090918 ####[facility] [address] [place] [address] Mucus Ql (Urine sed) TRACE Normal [facility] Comment on above: Performed By: #### 1 7064425 ####[facility] [address] [place] [address] Nitrite Ql (U) Negative Normal Negative [facility] Comment on above: Performed By: #### 1 3136640 ####[facility] [address] [place] [address] pH (U) 8.5 [pH] Invalid Interpretation Code 5.0-9.0 [facility] Comment on above: Performed By: #### 1 9669212 ####[address] [place] [address] Protein (U) [Mass/Vol] Negative Normal Negative [facility] Comment on above: Performed By: #### 1 7113955 ####[facility] [address] [place] [address] Specific gravity (U) [Rel density] 1.015 Invalid Interpretation Code 1.005-1.030 [facility] Comment on above: Performed By: #### 1 7145170 ####[place] [address] Type of Urine collection method Clean Catch Normal [facility] Comment on above: Performed By: #### 1 2313745 ####[place] [address] Urobilinogen Qn (U) 0.2 {Ivone'U}/dL Normal 0.0-1.0 [facility] Comment on above: Performed By: #### 1 1289932 ####[address] [address] WBC Auto Ql (U) Negative Normal Negative [facility] Comment on above: Performed By: #### 1 6871996 ####[address] [address] WBC LM.HPF (Urine sed) [#/Area] 0-5 Normal 0-5 [facility] Comment on above: Performed By: #### 1 5249430 ####[place] [address] URINALYSISOrdered By: Felicity George on 07-31-2023 Bacteria [...] [Mass/Vol] Negative (07/31/23 4:30 PM) Normal Negative [facility] UA Auto SS Hemoglobin Ql (U) Negative (07/31/23 4:30 PM) Normal Negative [facility] UA Auto SS Ketones (U) [Mass/Vol] 1+ *ABN* (07/31/23 4:30 PM) Invalid Interpretation Code Negative [facility] UA Auto SS [place].plasma/[place]. RBC (Bld) [Mass ratio] 0-3 /HPF Normal [...] Desc Clean Catch (07/31/23 4:30 PM) Normal [facility] UA Auto SS Urobilinogen Qn (U) 0.9290583 {Ivoen'U}/dL Normal 0.0 - 1.0 EU/dL [facility] UA Auto SS WBC Auto Ql (U) Negative (07/31/23 4:30 PM) Normal Negative [facility] UA Auto SS WBC LM.HPF (Urine sed) [#/Area] 0-5 /HPF Normal 0-5/HPF [facility] UA Auto SS eGFRon 07-31-2023 eGFR 85 mL/min/1.73 m2 Normal >=59 [facility] Comment on above: Order Comment: Order added by Discern Expert. Performed By: #### 2 855697, 0926637, 18976412, 42236090, 0938413 ####[facility] [address] [place] [address] ED NOTEon 06-23-2023 ED NOTE HNO ID: [id number] Author: DENNIS CAMARGO RN Service: ? Author Type: Registered Nurse Type: ED Notes Filed: 06/22/2023 22:17 Note Text: Patient given verbal and written D/C instructions. Medications and follow up care discussed. Instructed to return to ED if conditions and symptoms persist or worsen. All questions addressed and answered pt verbalized understanding. [facility] HAV IgM Ser Qlon 06-23-2023 HAV IgM Ql (S) Negative Normal Negative [facility] Comment on above: Order Comment: Speci men Type: BLOOD SPECIMENOrdering Facility: [facility] Address: [address] [place] [address] Result Comment: No e vidence of recent infection with Hepatitis A virus. Performed By: #### 3 1204-1, 53, 28770-4 ####[facility] LABCLIA [id number] [place] [address] [place] HBV core IgM Ser Qlon 2023 HBV core IgM Ql (S) Negative Normal Negative [facility] Comment on above: Order Comment: Speci men Type: BLOOD SPECIMENOrdering Facility: [facility] Address: [address] [place] [address] Result Comment: No e vidence of recent infection with Hepatitis B virus. Should recent infection be suspected, repeat testing may be considered 3-4 weeks after this draw. Performed By: #### 3 1204-1, 53, 37096-4 ####[facility] LABCLIA [id number] [place] [address] [place] HBV surface Ag Ser Qlon 06-13 HBV surface Ag Ql (S) Negative Normal Negative [facility] Comment on above: Order Comment: Speci men Type: BLOOD SPECIMENOrdering Facility: [facility] Address: [address] [place] [address] Performed By: #### 3 1204-1, 3, ####[facility] LABCLIA [id number] [place] [address] [place] HCV RNA SerPl SENAIT+probe-aCnc on 06-23-2023 HCV RNA SENAIT+probe Qn Not detected Normal HCV RNA not detected by PCR. [facility] Comment on above: Order Comment: Speci men Type: BLOOD SPECIMEN [facility] Address: [address] [place] [address] Performed By: #### 1 1011-4 #### [facility] CLIA [id number] [facility] DESK [id number] [place] ALLIED HEALTHon 06-22-2023 ALLIED HEALTH HNO ID: [id number] Author: SELENA AMADOR RT(R) Service: Radiology Author [...] June 22, 2023 TIME: 7:46 PM [facility] HNO ID: [id number] Author: DELLA BEST RDMS, RVT Service: Radiology Author Type: Compounding Technician Type: Allied Health Filed: 06/22/2023 18:55 [...] RDMS, RVT June 22, 2023 6:55 PM [facility] CBC W Auto Differential pane l (Bld)on 06-22-2023 Basophils (Bld) [#/Vol] 0.03 10*3/uL Normal <0.11 [facility] Comment on above: Order Comment: Speci zoraida Type: BLOOD SPECIMENOrdering Facility: [facility] Address: [address] [place] [address] Performed By: #### 5 7021-8 ####[facility] LABORATORYCLIA [id number] [place] [address] [place] Basophils/100 WBC (Bld) 0.6 % Normal L [facility] Comment on above: Order Comment: Speci men Type: BLOOD SPECIMENOrdering Facility: [facility] Address: [address] [place] [address] Performed By: #### 5 7021-8 ####[facility] LABORATORYCLIA [id number] [address] [place], [place] [address] [place] Differential cell count method Nom (Bld) Auto Normal [facility] Comment on above: Order Comment: Speci men Type: BLOOD SPECIMENOrdering Facility: [facility] Address: [address] [place] [address] Performed By: #### 5 7021-8 ####[facility] LABORATORYCLIA [id number] [address] [place] [address] [place] Eosinophils (Bld) [#/Vol] 0.03 10*3/uL Normal <0.46 [facility] Comment on above: Order Comment: Speci men Type: BLOOD SPECIMENOrdering Facility: [facility] Address: [address] [place] [address] Performed By: #### 5 7021-8 ####[facility] LABORATORYCLIA [id number] [address] [place] [address] [place] Eosinophils/100 WBC (Bld) 0.6 % [facility] Comment on above: Order Comment: Speci men Type: BLOOD SPECIMENOrdering Facility: [facility] Address: [address] [place] [address] Performed By: #### 5 7021-8 ####[facility] LABORATORYCLIA [id number] [address] [place] [address] [place] Erythrocyte distribution width (RBC) [Ratio] 16.5 % High 11.5-15.0 [facility] Comment on above: Order Comment: Speci men Type: BLOOD SPECIMENOrdering Facility: [facility] Address: [address] [place] [address] Performed By: #### 5 7021-8 ####[facility] LABORATORYCLIA [id number] [address] [place] Hematocrit (Bld) [Volume fraction] 37.7 % Normal 36.0-46.0 [facility] Comment on above: Order Comment: Speci men Type: BLOOD SPECIMENOrdering Facility: [facility] Address: [address] [place] [address] Performed By: #### 5 7021-8 ####[facility] LABORATORYCLIA [id number] [address] [place] [address] [place] Hemoglobin (Bld) [Mass/Vol] 11.7 g/dL Normal 11.5-15.5 [facility] Comment on above: Order Comment: Speci men Type: BLOOD SPECIMENOrdering Facility: [facility] Address: [address] [place] [address] Performed By: #### 5 7021-8 ####[facility]AIN LABORATORYCLIA [id number] [address] [place] [address] [place] Immature granulocytes (Bld) [#/Vol] 10*3/uL Normal <0.10 [facility] Comment on above: Order Comment: Speci men Type: BLOOD SPECIMENOrdering Facility: [facility] Address: [address] [place] [address] Performed By: #### 5 7021-8 ####J[facility] LABORATORYCLIA [id number] [place] [address] [place] Immature granulocytes/100 WBC (Bld) 0.4 % Normal [facility] Comment on above: Order Comment: Speci men Type: BLOOD SPECIMENOrdering Facility: [facility] Address: [address] [place] [address] Performed By: #### 5 7021-8 ####J[facility] LABORATORYCLIA [id number] [place] [address] [place] Lymphocytes (Bld) [#/Vol] 1.87 10*3/uL Normal 1.00-4.00 [facility] Comment on above: Order Comment: Speci men Type: BLOOD SPECIMENOrdering Facility: [facility] Address: [address] [place] [address] Performed By: #### 5 7021-8 ####J[facility] LABORATORYCLIA [id number] [place] [address] [place] Lymphocytes/100 WBC (Bld) 34.4 % Normal [facility] Comment on above: Order Comment: Speci men Type: BLOOD SPECIMENOrdering Facility: [facility] Address: [address] [place] [address] Performed By: #### 5 7021-8 ####[facility] LABORATORYCLIA [id number] [address] [place] [address] [place] MCH (RBC) [Entitic mass] 24.5 pg Low 26.0-34.0 [facility] Comment on above: Order Comment: Speci men Type: BLOOD SPECIMENOrdering Facility: [facility] Address: [address] [place] [address] Performed By: #### 5 7021-8 ####J[facility] LABORATORYCLIA [id number] [place] [address] [place] MCHC (RBC) [Mass/Vol] 31.0 g/dL Normal 30.5-36.0 [facility] Comment on above: Order Comment: Speci men Type: BLOOD SPECIMENOrdering Facility: [facility] Address: [address] [place] [address] Performed By: #### 5 7021-8 ####JAIN LABORATORYCLIA [id number] [place] [address] [place] MCV (RBC) [Entitic vol] 79.0 fL Low 80.0-100.0 L [facility] Comment on above: Order Comment: Speci men Type: BLOOD SPECIMENOrdering Facility: [facility] Address: [address] [place] [address] Performed By: #### 5 7021-8 ####JAIN LABORATORYCLIA [id number] [place] [address] [place] Monocytes (Bld) [#/Vol] 0.25 10*3/uL Normal <0.87 [facility] Comment on above: Order Comment: Speci men Type: BLOOD SPECIMENOrdering Facility: [facility] Address: [address] [place] [address] Performed By: #### 5 7021-8 ####JAIN LABORATORYCLIA [id number] [address] [address] [place] Monocytes/100 WBC (Bld) 4.6 % Normal [facility] Comment on above: Order Comment: Speci men Type: BLOOD SPECIMENOrdering Facility: [facility] Address: [address] [place] [address] Performed By: #### 5 7021-8 ####JAIN LABORATORYCLIA [id number] [address] [place] [address] [place] Neutrophils (Bld) [#/Vol] 3.23 10*3/uL Normal 1.45-7.50 [facility] Comment on above: Order Comment: Speci men Type: BLOOD SPECIMENOrdering Facility: [facility] Address: [address] [place] [address] Performed By: #### 5 7021-8 ####JAIN LABORATORYCLIA [id number] [address] [place] [address] [place] Neutrophils/100 WBC (Bld) 59.4 % Normal [facility] Comment on above: Order Comment: Speci men Type: BLOOD SPECIMENOrdering Facility: [facility] Address: [address] [place] [address] Performed By: #### 5 7021-8 ####JAIN LABORATORYCLIA [id number] [place] [address] [place] Nucleated RBC (Bld) [#/Vol] 10*3/uL Normal <0.01 [facility] Comment on above: Order Comment: Speci men Type: BLOOD SPECIMENOrdering Facility: [facility] Address: [address] [place] [address] Performed By: #### 5 7021-8 ####JAIN LABORATORYCLIA [id number] [address] [place] [address] [place] Nucleated RBC/100 WBC (Bld) [Ratio] 0.0 /100 WBC Normal [facility] Comment on above: Order Comment: Speci men Type: BLOOD SPECIMENOrdering Facility: [facility] Address: [address] [place] [address] Performed By: #### 5 7021-8 ####JAIN LABORATORYCLIA [id number] [address] [place] [address] [place] Platelet mean volume (Bld) [Entitic vol] 9.4 fL Normal 9.0-12.7 [facility] Comment on above: Order Comment: Speci men Type: BLOOD SPECIMENOrdering Facility: [facility] Address: [address] [place] [address] Performed By: #### 5 7021-8 ####JAIN LABORATORYCLIA [id number] [address] [place] [address] [place] Platelets (Bld) [#/Vol] 486 10*3/uL High 150-400 [facility] Comment on above: Order Comment: Speci men Type: BLOOD SPECIMENOrdering Facility: [facility] Address: [address] [place] [address] Performed By: #### 5 7021-8 ####JAIN LABORATORYCLIA [id number] [address] [place] [address] [place] RBC (Bld) [#/Vol] 4.77 10*6/uL Normal 3.90-5.20 [facility] Comment on above: Order Comment: Speci men Type: BLOOD SPECIMENOrdering Facility: [facility] Address: [address] [place] [address] Performed By: #### 5 7021-8 ####JAIN LABORATORYCLIA [id number] [address] [place] WBC (Bld) [#/Vol] 5.43 10*3/uL Normal 3.70-11.00 [facility] Comment on above: Order Comment: Speci men Type: BLOOD SPECIMENOrdering Facility: [facility] Address: [address] [place] [address] Performed By: #### 5 7021-8 ####JAIN LABORATORYCLIA [id number] [address] [place], [place] [address] [place] CT ABD/PEL W IVCONon 10-[address] ABD/PEL W IVCON * * [...] Tissues: No significant finding. Lower thorax: Unremarkable. Top Lift Trimmer (topogram) images: Unremarkable. IMPRESSION: No acute intra-abdominal or pelvic process identified. Ground Support Equipment Fitter: ANTONIO Transcribe Date/Time: Jun 22 2023 8:25P Dictated by : CHAD SCHILLING MD This examination was interpreted and the report reviewed and electronically signed by: CHAD SCHILLING MD on Jun 22 2023 8:29PM EST [id number] Normal [facility] Comprehensive metabolic 2000 panelon 06-22-2023 Albumin [Mass/Vol] 4.8 g/dL Normal 3.9-4.9 [facility] Comment on above: Order Comment: Speci men Type: BLOOD SPECIMENOrdering Facility: [facility] Address: [address] [place] [address] Performed By: #### 2 4323-8, 3040-3, 78684-4 ####JAIN LABORATORYCLIA [id number] [place] [address] [place] ALP [Catalytic activity/Vol] 108 U/L Normal 34-123 [facility] Comment on above: Order Comment: Speci men Type: BLOOD SPECIMENOrdering Facility: [facility] Address: [address] [facility] [place] [place] [address] Performed By: #### 2 4323-8, 3040-3, ####JAIN LABORATORYCLIA [id number] [address] [place], [place] [address] [place] ALT [Catalytic activity/Vol] 63 U/L High 7-38 [facility] Comment on above: Order Comment: Speci men Type: BLOOD SPECIMENOrdering Facility: [facility] Address: [address] [place] [address] Performed By: #### 2 4323-8, 3039-3, ####JAIN LABORATORYCLIA [id number] [address] [place], [place] [address] [place] Anion gap [Moles/Vol] 13 mmol/L Normal 9-18 [facility] Comment on above: Order Comment: Speci men Type: BLOOD SPECIMENOrdering Facility: [facility] Address: [address] [place] [address] Performed By: #### 2 4323-8, 3039-3, ####JAIN LABORATORYCLIA [id number] [place] [address] [place] AST [Catalytic activity/Vol] 109 U/L High 13-35 [facility] Comment on above: Order Comment: Speci men Type: BLOOD SPECIMENOrdering Facility: [facility] Address: [address] [place] [address] Performed By: #### 2 4323-8, 0-3, ####JAIN LABORATORYCLIA [id number] [address] [place], [place] [address] [place] Bilirubin [Mass/Vol] 0.4 mg/dL Normal 0.2-1.3 [facility] Comment on above: Order Comment: Speci men Type: BLOOD SPECIMENOrdering Facility: [facility] Address: [address] [place] [address] Performed By: #### 2 4323-8, 3040-3, ####JAIN LABORATORYCLIA [id number] [address] [place], [place] [address] [place] Calcium [Mass/Vol] 9.6 mg/dL Normal 8.5-10.2 [facility] Comment on above: Order Comment: Speci men Type: BLOOD SPECIMENOrdering Facility: [facility] Address: [address] [place] [address] Performed By: #### 2 4323-8, 3039-3, ####JAIN LABORATORYCLIA [id number] [address] [place], [place] [address] [place] Chloride [Moles/Vol] 102 mmol/L Normal 97-105 [facility] Comment on above: Order Comment: Speci men Type: BLOOD SPECIMENOrdering Facility: [facility] Address: [address] [place] [address] Performed By: #### 2 4323-8, 3, ####JAIN LABORATORYCLIA [id number] [place] [id number] [place] CO2 [Moles/Vol] 23 mmol/L Normal 22-30 [facility] Comment on above: Order Comment: Speci men Type: BLOOD SPECIMENOrdering Facility: [facility] Address: [address] [place] [address] Performed By: #### 2 4323-8, 3, ####JAIN LABORATORYCLIA [id number] [place] [id number] [place] Creatinine [Mass/Vol] 0.64 mg/dL Normal 0.58-0.96 [facility] Comment on above: Order Comment: Speci men Type: BLOOD SPECIMENOrdering Facility: [facility] Address: [address] [place] [address] Performed By: #### 2 4323-8, 3039-3, ####JAIN LABORATORYCLIA [id number] [place] [address] [place] Creatinine and Glomerular filtration rate.predicted panel (S/P/Bld) 118 mL/min/1.73m??? Normal >=60 [facility] Comment on above: Order Comment: Roselyn conway Type: BLOOD SPECIMENOrdering Facility: [facility] Address: [place] [address] Result Comment: Shelley mated Glomerular Filtration Rate [...] GFR. Performed By: #### 2 4323-8, 3040-3, 63189-4 ####JAIN LABORATORYCLIA [id number] [place] [address] [place] Glucose [Mass/Vol] 102 mg/dL High 74-99 [facility] Comment on above: Order Comment: Roselyn conway Type: BLOOD SPECIMENOrdering Facility: [facility] Address: [address] [place] [address] Result Comment: The [place] [employer] Association (ADA) provides guidance for cutoff [...] Standards of Medical Care in Diabetes 2016, [place] [employer]. Diabetes Care. 2016.39(Suppl 1). Performed By: #### 2 4323-8, 3040-3, 89354-4 ####JAIN LABORATORYCLIA [id number] [place] [id number] [place] Potassium [Moles/Vol] 3.8 mmol/L Normal 3.7-5.1 [facility] Comment on above: Order Comment: Roselyn conway Type: BLOOD SPECIMENOrdering Facility: [facility] Address: [address] [facility] [place] [address] Performed By: #### 2 4323-8, 3040-3, ####JAIN LABORATORYCLIA [id number] [place] [id number] [place] Protein [Mass/Vol] 8.2 g/dL High 6.3-8.0 [facility] Comment on above: Order Comment: Speci men Type: BLOOD SPECIMENOrdering Facility: [facility] Address: [address] [address] Performed By: #### 2 4323-8, 0-3, ####JAIN LABORATORYCLIA [id number] [place] [id number] [place] Sodium [Moles/Vol] 138 mmol/L Normal 136-144 [facility] Comment on above: Order Comment: Speci men Type: BLOOD SPECIMENOrdering Facility: [facility] Address: [address] [address] Performed By: #### 2 4323-8, 0-3, ####JAIN LABORATORYCLIA [id number] [place] [id number] [place] Urea nitrogen [Mass/Vol] 8 mg/dL Normal 7-21 [facility] Comment on above: Order Comment: Speci men Type: BLOOD SPECIMENOrdering Facility: [facility] Address: [address] [address] Performed By: #### 2 4323-8, 3039-3, ####JAIN LABORATORYCLIA [id number] [place] [id number] [place] ECG COMPLETEon 06-22-2023 ECG COMPLETE Ventricular Rate : 1 05 BPM Atrial Rate : 103 BPM P-R Interval : 152 ms QRS Duration : 77 ms Q-T Interval : 324 ms QTC Calculation(Bazett) : 429 ms Calculated P [place] : 42 degrees Calculated R [place] : 56 degrees Calculated T [place] : 49 degrees Sinus tachycardia Low voltage, precordial leads Anteroseptal infarct, old Abnormal ECG no stemi 1814 Confirmed by MD SEN BRENT ([id number]), brands editor STEPHENIE ERIC ([id number]) on 06/23/2023 12:09:36 PM NAME : ANTONIA NOYOLA PID : [id number] : 1985 Gender : Female Race : ORD : [id number] Procedure Date : Jun 22 2023 18:10:13 Edit Date : Jun 23 2023 12:09:40 Diagnosis: Sinus tachycardia Low voltage, precordial leads Anteroseptal infarct, old Abnormal ECG no stemi 1814 Confirmed by MD SEN BRENT ([id number]), brands editor STEPHENIE ERIC (1940) on 06/23/2023 12:09:36 PM Test Reason : Tachycardia Location : 502 : [facility] ED Overread By : MD SEN BRENT Edited By : STEPHENIE ERIC Referred By : , Acquired by : DAVID [facility] ED NOTEon 06-22-2023 ED NOTE HNO ID: [id number] Author: DENNIS CAMARGO RN Service: ? Author Type: Registered Nurse Type: ED Notes Filed: 06/22/2023 21:56 Note Text: Assumed care of pt at this time and received report from previous RN. [facility] ED NOTE HNO ID: [id number] Author: MATILDE DAVIS RN Service: Nursing Author Type: Registered Nurse Type: ED Notes Filed: 06/22/2023 17:38 Note Text: Pt presents with LLQ pain that radiates to back that began this morning but worsened one hour prior to arrival. Denies urinary complaints. [facility] ED PROV NOTEon 06-22-2023 ED PROV NOTE HNO ID: [id number] Author: EVGENY SEN MD Service: Emergency Medicine [...] with some relief. 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 Normal [facility] ED Triage Noteon 06-22-2023 ED Triage Note HNO ID: [id number] Author: TABBY LUCIANO PA-C Service: ? Author Type: Physician Sustainable Design Consultant Type: ED Triage Notes Filed: 06/22/2023 17:43 [...] treating team. SIGNATURE: Tabby Luciano PA-C Normal [facility] HCG Preg Ur Qlon 06-22-2023 HCG ( test) Ql (U) Negative Normal Negative [facility] Comment on above: Order Comment: Speci men Type: URINE SPECIMENOrdering Facility: [facility] Address: [address] [place], [place] [id number] Result Comment: This test is intended to aid in the early detection of . Very dilute urine samples, as indicated by a low specific gravity, may not contain artist's representative levels of hCG. This test detects [...] for . Performed By: #### 2 106-3 ####JAIN LABORATORYCLIA [id number] [place] [address] [place] Lipase SerPl-cCnssm rehab 06-22-19 24 Lipase [Catalytic activity/Vol] 34 U/L Normal 16-61 [facility] Comment on above: Order Comment: Speci men Type: BLOOD SPECIMENOrdering Facility: [facility] Address: [address] [place] [id number] Performed By: #### 2 4323-8, 3040-3, ####JAIN LABORATORYCLIA [id number] [place] [id number] [place] Magnesium SerPl-mCncon 06-22 Magnesium [Mass/Vol] 2.2 mg/dL Normal 1.7-2.3 [facility] Comment on above: Order Comment: Speci men Type: BLOOD SPECIMENOrdering Facility: [facility] Address: [address] [place] [id number] Performed By: #### 2 4323-8, 3040-3, ####JAIN LABORATORYCLIA [id number] [place] [id number] [facility] [place] US DOPPLER COMPLETEon 2023 US DOPPLER COMPLETE * * *Final Report* * * DATE OF EXAM: Jun 22 2023 6:54PM [facility] 1033 - US DOPPLER COMPLETE / [...] and stored in a permanent archive. MQ: [facility]_2021 COMPARISON: None RESULT: Uterus: -Size: [...] Normal sonographic appearance of the female pelvis. Ground Support Equipment Fitter: ANTONIO Transcribe Date/Time: Jun 22 2023 7:44P Dictated by : Vasu BURNS MD This examination was interpreted and the report reviewed and electronically signed by: Vasu BURNS MD on Jun 22 2023 7:48PM EST [id number] [facility] FEMALE PELVIS TRANSABD LT Don [...] and stored in a permanent archive. MQ: [facility]_2021 COMPARISON: None RESULT: Uterus: -Size: [...] Normal sonographic appearance of the female pelvis. Ground Support Equipment Fitter: ANTONIO Transcribe Date/Time: Jun 22 2023 7:44P Dictated by : Vasu BURNS MD This examination was interpreted and the report reviewed and electronically signed by: Vasu BURNS MD on Jun 22 2023 7:48PM EST [id number] [facility] US FEMALE PELVIS TRANSVAGon 06-22-2023 US [...] Normal sonographic appearance of the female pelvis. Ground Support Equipment Fitter: [facility] Transcribe Date/Time: Jun 22 2023 7:44P Dictated by : aVsu BURNS MD This examination was interpreted and the report reviewed and electronically signed by: Vasu BURNS MD on Jun 22 2023 7:48PM EST [id number] [facility] Urinalysis complete panel (U )on 06-22-2023 Bacteria LM.HPF (Urine sed) [#/Area] Few Abnormal None Seen [facility] Comment on above: Order Comment: Speci men Type: URINE SPECIMENOrdering Facility: [facility] Address: [address] [place] [address] Performed By: #### 2 4356-8 ####JAIN LABORATORYCLIA [id number] [address] [place] [address] [place] Bilirubin Ql (U) Negative Normal Negative [facility] Comment on above: Order Comment: Speci men Type: URINE SPECIMENOrdering Facility: [facility] Address: [address] [place] [address] Performed By: #### 2 4356-8 ####JAIN LABORATORYCLIA [id number] [address] [place] [address] [place] Clarity (Unsp spec) Clear Normal Clear [facility] Comment on above: Order Comment: Speci men Type: URINE SPECIMENOrdering Facility: [facility] Address: [address] [place] [address] Performed By: #### 2 4356-8 ####JAIN LABORATORYCLIA [id number] [address] [place] [address] STATES [facility] Color (U) Yellow Normal Yellow [facility] Comment on above: Order Comment: Speci men Type: URINE SPECIMENOrdering Facility: [facility] Address: [address] [place] [address] Performed By: #### 2 4356-8 ####JAIN LABORATORYCLIA [id number] [address] [place] [address] [place] Epithelial cells LM.HPF (Urine sed) [#/Area] Few Normal [facility] Comment on above: Order Comment: Speci men Type: URINE SPECIMENOrdering Facility: [facility] Address: [address] [place] [address] Performed By: #### 2 4356-8 ####JAIN LABORATORYCLIA [id number] [address] [place] [address] [place] Glucose Test strip (U) [Mass/Vol] Negative Normal Negative [facility] Comment on above: Order Comment: Speci men Type: URINE SPECIMENOrdering Facility: [facility] Address: [address] [place] [address] Performed By: #### 2 4356-8 ####JAIN LABORATORYCLIA [id number] [address] [place] [address] [place] Hemoglobin Ql (U) Negative Normal Negative [facility] Comment on above: Order Comment: Speci men Type: URINE SPECIMENOrdering Facility: [facility] Address: [address] [place] [address] Performed By: #### 2 4356-8 ####JAIN LABORATORYCLIA [id number] [address] [place], [place] [id number] [place] Ketones Ql (U) Trace Abnormal Negative [facility] Comment on above: Order Comment: Speci men Type: URINE SPECIMENOrdering Facility: [facility] Address: [address] [place] [address] Performed By: #### 2 4356-8 ####JAIN LABORATORYCLIA [id number] [address] [place] [address] [place] Leukocyte esterase Test strip Ql (U) Negative Normal Negative [facility] Comment on above: Order Comment: Speci men Type: URINE SPECIMENOrdering Facility: [facility] Address: [address] [place] [address] Performed By: #### 2 4356-8 ####JAIN LABORATORYCLIA [id number] [address] [place] [address] [place] Nitrite Ql (U) Negative Normal Negative [facility] Comment on above: Order Comment: Speci men Type: URINE SPECIMENOrdering Facility: [facility] Address: [address] [place] [address] Performed By: #### 2 4356-8 ####JAIN LABORATORYCLIA [id number] [address] [place], [place] [id number] [place] pH (U) 6.5 [pH] Normal 5.0-8.0 [facility] Comment on above: Order Comment: Speci men Type: URINE SPECIMENOrdering Facility: [facility] Address: [address] [place] [address] Performed By: #### 2 4356-8 ####JAIN LABORATORYCLIA [id number] [address] [place], [place] [id number] [place] Protein (U) [Mass/Vol] Negative Normal Negative [facility] Comment on above: Order Comment: Speci men Type: URINE SPECIMENOrdering Facility: [facility] Address: [address] [place] [address] Performed By: #### 2 4356-8 ####JAIN LABORATORYCLIA [id number] [address] [place] [address] [place] RBC LM.HPF (Urine sed) [#/Area] 0-3 /HPF Normal 0-3 /HPF [facility] Comment on above: Order Comment: Speci men Type: URINE SPECIMENOrdering Facility: [facility] Address: [address] [place] [address] Performed By: #### 2 4356-8 ####JAIN LABORATORYCLIA [id number] [address] [place] [address] [place] Specific gravity (U) [Rel density] 1.020 Normal 1.005-1.030 [facility] Comment on above: Order Comment: Speci men Type: URINE SPECIMENOrdering Facility: [facility] Address: [address] [place] [address] Performed By: #### 2 4356-8 ####JAIN LABORATORYCLIA [id number] [address] [place] Urobilinogen Ql (U) 1.0 EU/dL Normal 0.2-1.0 EU/dL [facility] Comment on above: Order Comment: Speci men Type: URINE SPECIMENOrdering Facility: [facility] Address: [address] [place] [address] Performed By: #### 2 4356-8 ####JAIN LABORATORYCLIA [id number] [address] [place] WBC LM.HPF (Urine sed) [#/Area] 0-5 /HPF Normal 0-5 /HPF [facility] Comment on above: Order Comment: Speci men Type: URINE SPECIMENOrdering Facility: [facility] Address: [address] [place] [address] Performed By: #### 2 4356-8 ####JAIN LABORATORYCLIA [id number] [address] [place], [place] [address] [place] Basic Metabolic Profon 05-30 Anion gap [Moles/Vol] 12 mmol/L Normal 9-17 [facility] Comment on above: Performed By: #### C DP, HCG, BMP, LIP, LIVP #### [facility] [address] [place], [place] [id number] [employer]: Jennifer Freire MD BUN/CRE Ratio 7 Low 9-20 [facility] Comment on above: Performed By: #### C DP, HCG, BMP, LIP, LIVP #### [facility] [address] [place], [place] [id number] [employer]: Jennifer Freire MD Calcium [Mass/Vol] 9.8 mg/dL Normal 8.6-10.4 [facility] Comment on above: Performed By: #### C DP, HCG, BMP, LIP, LIVP #### [facility] [address] [place] [address] [employer]: Jennifer Freire MD Chloride [Moles/Vol] 99 mmol/L Normal 98-107 [facility] Comment on above: Performed By: #### C DP, HCG, BMP, LIP, LIVP #### [facility] [address] [place] [address] [employer]: Jennifer Freire MD CO2 [Moles/Vol] 24 mmol/L Normal 20-31 [facility] Comment on above: Performed By: #### C DP, HCG, BMP, LIP, LIVP #### [facility] [address] [place] [id number] [employer]: Jennifer Freire MD Creatinine [Mass/Vol] 0.7 mg/dL Normal 0.5-0.9 [facility] Comment on above: Performed By: #### C DP, HCG, BMP, LIP, LIVP #### [facility] [address] [place] [address] [employer]: Jennifer Freire MD GFR/1.73 sq M.predicted among non-blacks MDRD (S/P/Bld) [Vol rate/Area] mL/min/{1.73_m2} Normal >60 [facility] Comment on above: Result Comment: These [...] C DP, HCG, BMP, LIP, LIVP #### [facility] [address] [place] [address] [employer]: Jennifer Freire MD Glucose [Mass/Vol] 97 mg/dL Normal 70-99 [facility] Comment on above: Performed By: #### C DP, HCG, BMP, LIP, LIVP #### [facility] [address] [place] [address] [employer]: Jennifer Freire MD Potassium [Moles/Vol] 3.9 mmol/L Normal 3.7-5.3 [facility] Comment on above: Performed By: #### C DP, HCG, BMP, LIP, LIVP #### [facility] [address] [place] [address] [employer]: Jennifer Freire MD Sodium [Moles/Vol] 135 mmol/L Normal 135-144 [facility] Comment on above: Performed By: #### C DP, HCG, BMP, LIP, LIVP #### [facility] [address] [place] [address] [employer]: Jennifer Freire MD Urea nitrogen [Mass/Vol] 5 mg/dL Low 6-20 [facility] Comment on above: Performed By: #### C DP, HCG, BMP, LIP, LIVP #### [facility] [address] [place] [address] [employer]: Jennifer Freire MD CBC with Diffon 05-30-2023 Abs. Basophil 0.02 k/uL Normal 0.00-0.20 [facility] Comment on above: Performed By: #### C DP, HCG, BMP, LIP, LIVP #### [facility] [address] [place] [address] [employer]: Jennifer Freire MD Abs.Imm.Granulocyte 0.00 k/uL Normal 0.00-0.30 [facility] Comment on above: Performed By: #### C DP, HCG, BMP, LIP, LIVP #### [facility] [address] [place] [address] [employer]: Jennifer Freire MD Abs.Neutrophil (Seg) 2.21 k/uL Low 2.5-7.0 [facility] Comment on above: Performed By: #### C DP, HCG, BMP, LIP, LIVP #### [facility] [address] [place] [address] [employer]: Jennifer Freire MD Basophils/100 WBC (Bld) 0 % Normal 0-2 [facility] Comment on above: Performed By: #### C DP, HCG, BMP, LIP, LIVP #### [facility] [address] [place] [address] [employer]: Jennifer Freire MD Eosinophils (Bld) [#/Vol] 0.05 10*3/uL Normal 0.00-0.40 [facility] Comment on above: Performed By: #### C DP, HCG, BMP, LIP, LIVP #### [facility] [address] [place] [address] [employer]: Jennifer Freire MD Eosinophils/100 WBC (Bld) 1 % Normal 0-5 [facility] Comment on above: Performed By: #### C DP, HCG, BMP, LIP, LIVP #### [facility] [address] [place] [id number] [employer]: Jennifer Freire MD Erythrocyte distribution width (RBC) [Ratio] 16.5 % High 12.1-15.2 [facility] Comment on above: Performed By: #### C DP, HCG, BMP, LIP, LIVP #### [facility] [address] [place] [id number] [employer]: Jennifer Freire MD Hematocrit (Bld) [Volume fraction] 37.2 % Normal 36.0-46.0 [facility] Comment on above: Performed By: #### C DP, HCG, BMP, LIP, LIVP #### [facility] [address] [place] [address] [employer]: Jennifer Freire MD Hemoglobin (Bld) [Mass/Vol] 11.7 g/dL Low 12.0-16.0 [facility] Comment on above: Performed By: #### C DP, HCG, BMP, LIP, LIVP #### [facility] [address] [place] [id number] [employer]: Jennifer Freire MD Immature granulocytes/100 WBC (Bld) 0 % Normal 0-5 [facility] Comment on above: Performed By: #### C DP, HCG, BMP, LIP, LIVP #### [facility] [address] [place] [address] [employer]: Jennifer Freire MD Lymphocytes (Bld) [#/Vol] 2.45 10*3/uL Normal 1.00-4.80 [facility] Comment on above: Performed By: #### C DP, HCG, BMP, LIP, LIVP #### [facility] [address] [place] [address] [employer]: Jennifer Freire MD Lymphocytes/100 WBC (Bld) 48 % High 15-40 [facility] Comment on above: Performed By: #### C DP, HCG, BMP, LIP, LIVP #### [facility] [address] [place] [address] [employer]: Jennifer Freire MD MCH (RBC) [Entitic mass] 24.2 pg Low 26.0-34.0 [facility] Comment on above: Performed By: #### C DP, HCG, BMP, LIP, LIVP #### [facility] [address] [place] [id number] [employer]: Jennifer Freire MD MCHC (RBC) [Mass/Vol] 31.5 g/dL Normal 31.0-37.0 [facility] Comment on above: Performed By: #### C DP, HCG, BMP, LIP, LIVP #### [facility] [address] [place] [address] [employer]: Jennifer Freire MD MCV (RBC) [Entitic vol] 76.9 fL Low 80.0-100.0 [facility] Comment on above: Performed By: #### C DP, HCG, BMP, LIP, LIVP #### [facility] [address] [place] [address] [employer]: Jennifer Freire MD Monocytes (Bld) [#/Vol] 0.37 10*3/uL Normal 0.00-1.00 [facility] Comment on above: Performed By: #### C DP, HCG, BMP, LIP, LIVP #### [facility] [address] [place] [address] [employer]: Jennifer Freire MD Monocytes/100 WBC (Bld) 7 % Normal 4-8 [facility] Comment on above: Performed By: #### C DP, HCG, BMP, LIP, LIVP #### [facility] [address] [place] [id number] [employer]: Jennifer Freire MD Neutrophil (Seg) 43 % Low 47-75 [facility] Comment on above: Performed By: #### C DP, HCG, BMP, LIP, LIVP #### [facility] [address] [place], [place] [id number] [employer]: Jennifer Freire MD Platelet mean volume (Bld) [Entitic vol] 8.7 fL Normal 6.0-12.0 [facility] Comment on above: Performed By: #### C DP, HCG, BMP, LIP, LIVP #### [facility] [address] [place] [id number] [employer]: Jennifer Freire MD Platelets (Bld) [#/Vol] 512 10*3/uL High 140-450 [facility] Comment on above: Performed By: #### C DP, HCG, BMP, LIP, LIVP #### [facility] [address] [place] [address] [employer]: Jennifer Freire MD RBC (Bld) [#/Vol] 4.84 10*6/uL Normal 4.00-5.20 [facility] Comment on above: Performed By: #### C DP, HCG, BMP, LIP, LIVP #### [facility] [address] [place] [id number] [employer]: Jennifer Freire MD WBC (Bld) [#/Vol] 5.1 10*3/uL Normal 3.5-11.0 [facility] Comment on above: Performed By: #### C DP, HCG, BMP, LIP, LIVP #### [facility] [address] [place] [id number] [employer]: Jennifer Freire MD CT ABDOMEN PELVIS W [...] Marilyn Narvaez MD 05/30/23 Final result Normal [facility] HCG Screen, Bloodon 05-30-20 HCG Screen, Blood Negative Normal NEG [facility] Comment on above: Result Comment: Spec [...] C DP, HCG, BMP, LIP, LIVP #### [facility] [address] [place] [address] [employer]: Jennifer Freire MD Lipaseon 05-30-2023 Lipase [Catalytic activity/Vol] 28 U/L Normal 13-60 [facility] Comment on above: Performed By: #### C DP, HCG, BMP, LIP, LIVP #### [facility] [address] [place] [address] [employer]: Jennifer Freire MD Liver Profileon 05-30-2023 Albumin [Mass/Vol] 4.3 g/dL Normal 3.5-5.2 [facility] Comment on above: Performed By: #### C DP, HCG, BMP, LIP, LIVP #### [facility] [address] [place] [address] [employer]: Jennifer Freire MD Alkaline Phos 86 U/L Normal 35-104 [facility] Comment on above: Performed By: #### C DP, HCG, BMP, LIP, LIVP #### [facility] [address] [place] [id number] [employer]: Jennifer Freire MD ALT [Catalytic activity/Vol] 14 U/L Normal 5-33 [facility] Comment on above: Performed By: #### C DP, HCG, BMP, LIP, LIVP #### [facility] [address] [place] [id number] [employer]: Jennifer Freire MD AST [Catalytic activity/Vol] 18 U/L Normal <32 [facility] Comment on above: Performed By: #### C DP, HCG, BMP, LIP, LIVP #### [facility] [address] [place] [id number] [employer]: Jennifer Freire MD Bilirubin [Mass/Vol] 0.5 mg/dL Normal 0.3-1.2 [facility] Comment on above: Performed By: #### C DP, HCG, BMP, LIP, LIVP #### [facility] [address] [place] [id number] [employer]: Jennifer Freire MD Bilirubin, Indirect Can not be calculated Normal 0.0-1 .0 [facility] Comment on above: Performed By: #### C DP, HCG, BMP, LIP, LIVP #### [facility] [address] [place] [address] [employer]: Jennifer Freire MD Bilirubin.indirect [Mass/Vol] mg/dL Normal <0.3 [facility] Comment on above: Performed By: #### C DP, HCG, BMP, LIP, LIVP #### [facility] [address] [place], [place] [id number] [employer]: Jennifer Freire MD Protein [Mass/Vol] 7.9 g/dL Normal 6.4-8.3 [facility] Comment on above: Performed By: #### C DP, HCG, BMP, LIP, LIVP #### [facility] [address] [place], [place] [id number] [employer]: Jennifer Freire MD Urinalysis, Routineon 2022 Bilirubin, SemiQt,Ur Negative Normal NEG [facility] Comment on above: Performed By: #### U A #### [facility] [address] [place], [place] [id number] [employer]: Jennifer Freire MD Blood, Urine Negative Normal NEG [facility] Comment on above: Performed By: #### U A #### [facility] [address] [place], [place] [id number] [employer]: Jennifer Freire MD Clarity (U) Clear Normal CLEAR [facility] Comment on above: Performed By: #### U A #### [facility] [address] [place], [place] [id number] [employer]: Jennifer Freire MD Color (U) Yellow Normal YEL [facility] Comment on above: Performed By: #### U A #### [facility] [address] [place], [place] [id number] [employer]: Jennifer Freire MD Comment Normal [facility] Comment on above: Performed By: #### U A #### [facility] [address] [place], [place] [address] [employer]: Jennifer Freire MD Glucose Ql (U) Negative Normal NEG [facility] Comment on above: Performed By: #### U A #### [facility] [address] [place] [address] [employer]: Jennifer Freire MD Ketones Ql (U) Negative Normal NEG [facility] Comment on above: Performed By: #### U A #### [facility] [address] [place] [address] [employer]: Jennifer Freire MD Leukocyte esterase Test strip Ql (U) Negative Normal NEG [facility] Comment on above: Performed By: #### U A #### [facility] [address] [place] [address] [employer]: Jennifer Freire MD Nitrite,Ur Negative Normal NEG [facility] Comment on above: Performed By: #### U A #### [facility] [address] [place], [place] [address] [employer]: Jennifer Freire MD PH,Ur 8.0 Normal 5.0-8.0 [facility] Comment on above: Performed By: #### U A #### [facility] [address] [place], [place] [address] [employer]: Jennifer Freire MD Protein Ql (U) Negative Normal NEG [facility] Comment on above: Performed By: #### U A #### [facility] [address] [place], [place] [address] [employer]: Jennifer Freire MD Spec. Alexis,Ur 1.010 Normal 1.005-1.030 [facility] Comment on above: Performed By: #### U A #### [facility] [address] [place], [place] [address] [employer]: Jennifer Freire MD Urobilinogen,Ur Normal Normal 0.0-1.0 [facility] Comment on above: Performed By: #### U A #### [facility] [address] [place], [place] [id number] [employer]: Jennifer Freire MD Alanine aminotransferase [En zymatic activity/volume] in Serum or PlasmaOrdered By: Elier Manuel on 04-30-2023 ALT [Catalytic activity/Vol] 15 U/L Normal 7-52 [facility] Comment on above: Performed By: #### H CGQNT #### [place] [address] [place] Albumin [Mass/volume] in Ser um or Plasma by Bromocresol green (BCG) dye binding methoOrdered By: Elier Manuel on 04-30-2023 Albumin BCG dye [Mass/Vol] 4.3 g/dL 3.5-5.7 [facility] Alkaline phosphatase [Enzyma tic activity/volume] in Serum or PlasmaOrdered By: Elier Manuel on 04-30-2023 ALP [Catalytic activity/Vol] 68 U/L Normal 34-104 [facility] Comment on above: Performed By: #### H CGQNT #### [address] Aspartate aminotransferase [ Enzymatic activity/volume] in Serum or PlasmaOrdered By: Elierjaqui Jackson on 04-30-2023 AST [Catalytic activity/Vol] 17 U/L Normal 13-39 [facility] Comment on above: Performed By: #### H CGQNT #### [address] Automated basophil %Ordered By: Elier Jackson on 04-30-2023 Basophils/100 WBC (Bld) 1.3 % Normal . [facility] Comment on above: Performed By: #### H CGQNT #### [address] Automated basophil countOrde red By: Elier Jackson on 04-30-2023 Basophils (Bld) [#/Vol] 0.0 10*3/uL Normal 0.0-0.2 [facility] Comment on above: Result Comment: PERF ORMED BY: [place] [address] PATHOLOGIST [employer] FARNAZ ZULETA M.D. Performed By: #### H CGQNT #### [address] Automated blood monocyte cou ntOrdered By: Elier Jackson on 04-30-2023 Monocytes (Bld) [#/Vol] 0.3 10*3/uL Normal 0.0-0.8 [facility] Comment on above: Performed By: #### H CGQNT #### [address] Automated eosinophil %Ordere d By: Elier Velásquezarleen on 04-30-2023 Eosinophils/100 WBC (Bld) 0.6 % Normal . [facility] Comment on above: Performed By: #### H CGQNT #### [address] Automated eosinophil countOr dered By: Elier Velásquezarleen on 04-30-2023 Eosinophils (Bld) [#/Vol] 0.0 10*3/uL Normal 0.0-0.45 [facility] Comment on above: Performed By: #### H CGQNT #### [address] Automated erythrocytes count in urine sediment (number/area)Ordered By: Elier Velásquezarleen on 04-30-2023 RBC Auto (Urine sed) [#/Area] 5-9 [HPF] 0-4 [facility] Automated leukocytes count i n urine sediment (number/area)Ordered By: Elier Velásquezarleen on 04-30-2023 WBC Auto (Urine sed) [#/Area] 0-1 [HPF] 0-4 [facility] Automated monocyte %Ordered By: Elier Velásquezarleen on 04-30-2023 Monocytes/100 WBC (Bld) 7.0 % Normal . [facility] Comment on above: Performed By: #### H CGQNT #### [address] Automated neutrophil %Ordere d By: Elier Velásquezarleen on 04-30-2023 Neutrophils/100 WBC (Bld) 46.9 % Normal . [facility] Comment on above: Performed By: #### H CGQNT #### [address] [place] [address] [place] Automated urine color determ inationOrdered By: Elier Jackson on 04-30-2023 Color (U) Yellow Normal Yellow [facility] Comment on above: Order Comment: Name Collection Type:: Clean-Voided Midstream Performed By: #### U HCG, ADDONUAPLUS #### [address] Basic Metabolic Panelon 04-13 Creatinine Clr Calc Pharmacy 107.67 Normal [facility] Comment on above: Performed By: #### H CGQNT #### [address] GFR/1.73 sq M.predicted MDRD (S/P/Bld) [Vol rate/Area] mL/min/{1.73_m2} Normal [facility] Comment on above: Performed By: #### H CGQNT #### [address] Bilirubin Test strip Ql (U)O rdered By: Elier Jackson on 04-30-2023 Bilirubin Ql (U) Negative Negative [facility] Bilirubin.direct [Mass/volum e] in Serum or PlasmaOrdered By: Elier Jackson on 04-30-2023 Bilirubin.direct [Mass/Vol] 0.10 mg/dL 0.03-0.18 [facility] Bilirubin.total [Mass/volume ] in Serum or PlasmaOrdered By: Elier Jackson on 04-30-2023 Bilirubin [Mass/Vol] 0.4 mg/dL Normal 0.3-1.0 [facility] Comment on above: Performed By: #### H CGQNT #### [facility] [address] [place] [address] Calcium [Mass/volume] in Ser um or PlasmaOrdered By: Elier Jackson on 04-30-2023 Calcium [Mass/Vol] 9.2 mg/dL Normal 8.6-10.3 [facility] Comment on above: Performed By: #### H CGQNT #### [address] Carbon dioxide, total [Moles /volume] in Serum or PlasmaOrdered By: Elier Manuel on 04-30-2023 CO2 [Moles/Vol] 20.1 mmol/L Low 21.0-31.0 [facility] Comment on above: Performed By: #### H CGQNT #### [address] Chloride [Moles/volume] in S binu or PlasmaOrdered By: Elier Jackson on 04-30-2023 Chloride [Moles/Vol] 109 mmol/L High 98-107 [facility] Comment on above: Performed By: #### H CGQNT #### [address] Complete Blood Count Auto Di ffon 04-30-2023 Mean Corpuscular HGB Conc 34.7 g/dL Normal 32.0-35.0 [facility] Comment on above: Performed By: #### H CGQNT #### [address] Monocytes/100 WBC (Bld) 16.58 % Normal 0.00-20.00 [facility] Comment on above: Performed By: #### H CGQNT #### [address] NRBC% 0.1 /100{WBC} Normal 0-0.5 [facility] Comment on above: Performed By: #### H CGQNT #### [address] Creatinine [Mass/volume] in Serum or PlasmaOrdered By: Elier Jackson on 04-30-2023 Creatinine [Mass/Vol] 0.65 mg/dL Normal 0.60-1.20 [facility] Comment on above: Performed By: #### H CGQNT #### [place] [address] [place] Dipstick and Microscopicon 1 06-30-2022 Appearance (U) Clear Normal Clear [facility] Comment on above: Order Comment: Name Collection Type:: Clean-Voided Midstream Performed By: #### U HCG, ADDONUAPLUS #### [facility] [address] [place] [address] Bacteria,Urine None Seen Normal None Seen [facility] Comment on above: Order Comment: Name Collection Type:: Clean-Voided Midstream Performed By: #### U HCG, ADDONUAPLUS #### [facility] [address] [place] [address] Bilirubin,Urine Negative Normal Negative [facility] Comment on above: Order Comment: Name Collection Type:: Clean-Voided Midstream Performed By: #### U HCG, ADDONUAPLUS #### [address] Glucose Ql (U) Normal Normal Normal [facility] Comment on above: Order Comment: Name Collection Type:: Clean-Voided Midstream Performed By: #### U HCG, ADDONUAPLUS #### [place] [address] [place] Hyaline Casts,Urine 0-8 Normal 0-8 [facility] Comment on above: Order Comment: Name Collection Type:: Clean-Voided Midstream Performed By: #### U HCG, ADDONUAPLUS #### [facility] [address] [place] [address] Ketones Ql (U) Negative Normal Negative [facility] Comment on above: Order Comment: Name Collection Type:: Clean-Voided Midstream Performed By: #### U HCG, ADDONUAPLUS #### [facility] [address] [place] [address] [place] Leukocyte esterase Test strip Ql (U) Negative Normal Negative [facility] Comment on above: Order Comment: Name Collection Type:: Clean-Voided Midstream Performed By: #### U HCG, ADDONUAPLUS #### [place] [address] [place] Nitrite,Urine Negative Normal Negative [facility] Comment on above: Order Comment: Name Collection Type:: Clean-Voided Midstream Performed By: #### U HCG, ADDONUAPLUS #### [address] Occult Blood,Urine 2+ High Negative [facility] Comment on above: Order Comment: Name Collection Type:: Clean-Voided Midstream Performed By: #### U HCG, ADDONUAPLUS #### [address] Protein,Urine Negative Normal Negative [facility] Comment on above: Order Comment: Name Collection Type:: Clean-Voided Midstream Performed By: #### U HCG, ADDONUAPLUS #### [address] RBC,Urine 5-9 High 0-4 [facility] Comment on above: Order Comment: Name Collection Type:: Clean-Voided Midstream Performed By: #### U HCG, ADDONUAPLUS #### [address] Specificy Alexis,Urine 1.018 Normal 1.001-1.030 [facility] Comment on above: Order Comment: Name Collection Type:: Clean-Voided Midstream Performed By: #### U HCG, ADDONUAPLUS #### [address] Squamous Epithelial Cell,Urine 0-1 Normal 0-2 [facility] Comment on above: Order Comment: Name Collection Type:: Clean-Voided Midstream Performed By: #### U HCG, ADDONUAPLUS #### [address] Urobilinogen,Urine Normal Normal Normal [facility] Comment on above: Order Comment: Name Collection Type:: Clean-Voided Midstream Performed By: #### U HCG, ADDONUAPLUS #### [place] [address] [place] WBC LM.HPF (Urine sed) [#/Area] 0 /[HPF] Normal 0-4 [facility] Comment on above: Order Comment: Name Collection Type:: Clean-Voided Midstream Performed By: #### U HCG, ADDONUAPLUS #### [address] Erythrocyte distribution wid th [Ratio] by Automated countOrdered By: Elier Velásquezarleen on 04-30-2023 Erythrocyte distribution width (RBC) [Ratio] 16.8 % High 11.9-15.3 [facility] Comment on above: Performed By: #### H CGQNT #### [facility] [address] Erythrocytes [#/volume] in B lood by Automated countOrdered By: Elier Manuel on 04-30-2023 RBC (Bld) [#/Vol] 3.68 10*6/uL Normal 3.60-5.00 [facility] Comment on above: Performed By: #### H CGQNT #### [facility] [address] [place] [address] Glucose [Mass/volume] in Ser um or PlasmaOrdered By: Elierjaqui Jackson on 04-30-2023 Glucose [Mass/Vol] 100 mg/dL Normal 70-100 [facility] Comment on above: ADA recommended refe rence rangeRandom Glucose Reference Range is dependent on time and content of last meal. Glucose of more than 200 mg/dL in a nonstressed, ambulatory subject supports the diagnosis of Diabetes Mellitus. Result Comment: [place] om Glucose Reference Range is dependent on time and content of last meal. Glucose of more than 200 mg/dL in a nonstressed, ambulatory subject supports the diagnosis of Diabetes Mellitus. ADA recommended reference range Performed By: #### H CGQNT #### [address] HCG ( test) IA.rapi d Ql (U)Ordered By: Elier Jackson on 04-30-2023 HCG ( test) Ql (U) Negative [facility] HCG,Urineon 04-30-2023 Beta HCG ( test) Ql (U) Negative Normal [facility] Comment on above: Order Comment: Name Collection Type:: Clean-Voided Midstream Result Comment: PERF ORMED BY: [place] [address] PATHOLOGIST [employer] MANAGER FARNAZ ZULETA M.D. Performed By: #### U HCG, ADDONUAPLUS #### [address] Hematocrit [Volume Fraction] of Blood by Automated countOrdered By: Elier Jackson on 04-30-2023 Hematocrit (Bld) [Volume fraction] 32.3 % Low 34.0-46.4 [facility] Comment on above: Performed By: #### H CGQNT #### [address] Hemoglobin [Mass/volume] in BloodOrdered By: Elier Jackson on 04-30-2023 Hemoglobin (Bld) [Mass/Vol] 11.2 g/dL Low 11.8-15.4 [facility] Comment on above: Performed By: #### H CGQNT #### [address] Hepatic Panelon 04-30-2023 Albumin [Mass/Vol] 4.3 g/dL Normal 3.5-5.7 [facility] Comment on above: Performed By: #### H CGQNT #### [address] Bilirubin,Indirect 0.3 mg/dL Normal [facility] Comment on above: Performed By: #### H CGQNT #### [address] Bilirubin.indirect [Mass/Vol] 0.10 mg/dL Normal 0.03-0.18 [facility] Comment on above: Performed By: #### H CGQNT #### [address] Ketones Auto test strip (U) [Mass/Vol]Ordered By: Elier Jackson on 04-30-2023 Ketones (U) [Mass/Vol] Negative Negative [facility] - UrinalysisOrder ed By: Elier Jackson on 04-30-2023 Hyaline casts LM Ql (Urine sed) 0-8 [LPF] 0-8 [facility] Leukocytes [#/volume] correc flo for nucleated erythrocytes in Blood by Automated counOrdered By: Elier Jackson on 04-30-2023 WBC corrected for nucl RBC Auto (Bld) [#/Vol] 3.6 10*3/uL 3.8-11.6 [facility] Leukocytes [#/volume] in Blo od by Automated countOrdered By: Elier Jackson on 04-30-2023 WBC (Bld) [#/Vol] 3.6 10*3/uL Low 3.8-11.6 [facility] Comment on above: Performed By: #### H CGQNT #### [place] [address] [place] Lipase [Enzymatic activity/v olume] in Serum or PlasmaOrdered By: Elier Jackson on 04-30-2023 Lipase [Catalytic activity/Vol] 31.0 U/L Normal 11.0-82.0 [facility] Comment on above: Result Comment: PERF ORMED BY: [place] [address] PATHOLOGIST [employer] MANAGER FARNAZ ZULETA M.D. Performed By: #### H CGQNT #### [place] [address] [place] Lymphocytes [#/volume] in Bl ood by Automated countOrdered By: Elier Jackson on 04-30-2023 Lymphocytes (Bld) [#/Vol] 1.6 10*3/uL Normal 1.00-4.8 [facility] Comment on above: Performed By: #### H CGQNT #### [facility] [address] [place] [address] [place] Lymphocytes/100 leukocytes i n Blood by Automated countOrdered By: Elier Jackson on 04-30-2023 Lymphocytes/100 WBC (Bld) 44.2 % Normal . [facility] Comment on above: Performed By: #### H CGQNT #### [place] [address] [place] MCH [Entitic mass] by Automa flo countOrdered By: Elier Jackson on 04-30-2023 MCH (RBC) [Entitic mass] 30.4 pg Normal 24.7-34.3 [facility] Comment on above: Performed By: #### H CGQNT #### [facility] [address] [place] [address] MCHC Auto (RBC) [Mass/Vol]Or dered By: Elier Jackson on 04-30-2023 MCHC (RBC) [Mass/Vol] 34.7 g/dL 32.0-35.0 [facility] MCV [Entitic volume] by Auto mated countOrdered By: Elier Jackson on 04-30-2023 MCV (RBC) [Entitic vol] 87.6 fL Normal 80-100 [facility] Comment on above: Performed By: #### H CGQNT #### [facility] [address] [place] [address] Monocyte distribution width [Entitic volume] in Blood by AutomatedOrdered By: Elier Jackson on 04-30-2023 Monocyte distribution width Auto (Bld) [Entitic vol] 16.58 % 0.00-20.00 [facility] Neutrophils [#/volume] in Bl ood by Automated countOrdered By: Elier Jackson on 04-30-2023 Neutrophils (Bld) [#/Vol] 1.7 10*3/uL Low 1.8-7.7 [facility] Comment on above: Performed By: #### H CGQNT #### [address] Nitrite Test strip Ql (U)Ord ered By: Elier Jackson on 04-30-2023 Nitrite Ql (U) Negative Negative [facility] No Panel InformationOrdered By: Elier Jackson on 04-30-2023 Estimated GFR (CKD-EPI) > 60.0 mL/Min [facility] Creatinine Clearance (Chem 107.67 [facility] Nucleated erythrocytes [Pres ence] in Blood by Automated countOrdered By: Elier Jackson on 04-30-2023 Nucleated RBC Auto Ql (Bld) 0.1 /100{WBC} 0-0.5 [facility] Platelet mean volume [Entiti c volume] in Blood by Automated countOrdered By: Elier Jackson on 04-30-2023 Platelet mean volume (Bld) [Entitic vol] 8.0 fL Normal 6.3-10.7 [facility] Comment on above: Performed By: #### H CGQNT #### [facility] [address] [place] [address] [place] Platelets [#/volume] in Bloo d by Automated countOrdered By: Elier Jackson on 04-30-2023 Platelets (Bld) [#/Vol] 415 10*3/uL Normal 150-450 [facility] Comment on above: Performed By: #### H CGQNT #### [facility] [address] Potassium [Moles/volume] in Serum or PlasmaOrdered By: Elier Jackson on 04-30-2023 Potassium [Moles/Vol] 3.8 mmol/L Normal 3.5-5.1 [facility] Comment on above: Performed By: #### H CGQNT #### [address] Protein Auto test strip (U) [Mass/Vol]Ordered By: Elier Jackson on 04-30-2023 Protein (U) [Mass/Vol] Negative Negative [facility] Protein [Mass/volume] in Ser um or PlasmaOrdered By: Elier Jackson on 04-30-2023 Protein [Mass/Vol] 7.6 g/dL Normal 6.4-8.9 [facility] Comment on above: Performed By: #### H CGQNT #### [facility] [address] [place] [address] Serum globulin measurement b y calculation (mass/volume)Ordered By: Elier Jackson on 04-30-2023 Globulin (S) [Mass/Vol] 3.3 g/dL Normal [facility] Comment on above: Performed By: #### H CGQNT #### [facility] [address] [place] [address] Serum or plasma albumin/glob ulin mass ratioOrdered By: Elier Jackson on 04-30-2023 Albumin/Globulin [Mass ratio] 1.3 {ratio} Normal [facility] Comment on above: Performed By: #### H CGQNT #### [address] Serum or plasma anion gap de terminationOrdered By: Elier Jackson on 04-30-2023 Anion gap [Moles/Vol] 14.7 mmol/L Normal 6.0-15.0 [facility] Comment on above: Performed By: #### H CGQNT #### [facility] [address] [place] [address] Serum or plasma non-glucuron idated bilirubin measurement (mass/volume)Ordered By: Elier Jackson on 04-30-2023 Bilirubin.indirect [Mass/Vol] 0.3 mg/dL [facility] Sodium [Moles/volume] in Ser um or PlasmaOrdered By: Elier Jackson on 04-30-2023 Sodium [Moles/Vol] 140 mmol/L Normal 136-145 [facility] Comment on above: Performed By: #### H CGQNT #### [address] Specific gravity Auto test s trip (U) [Rel density]Ordered By: Elier Jackson on 04-30-2023 Specific gravity (U) [Rel density] 1.018 1.001-1.030 [facility] Squamous epithelial cells de tection in urine sediment by light microscopyOrdered By: Elier Jackson on 04-30-2023 Epithelial cells.squamous LM Ql (Urine sed) 0-1 [HPF] 0-2 [facility] US pelvic completeon 023 US pelvic complete [facility] [address] Ultrasound Report Signed Patient: Antonia Noyola MR#: [id number] : 1985 Acct:[id number] Age/Sex: 38 / F ADM Date: 04/30/23 Loc: ER Room: Type: [facility] ER Attending Dr: Ordering Provider: Elier Jackson DO Date of Service: 04/30/23 US/US pelvic complete: L pelvic pain ([id number]) US/US transvaginal: LT PELVIC PAIN Copies to: [...] Betancur Jr., D.OEbenezer04/30/2023 6:24 PM Dictation Location: [place] [address] Tech: Brooke Naveen Transcribed By: AMBER 04/30/231823 Dictated By: Dennis Betancur Jr, DO 04/30/231820 Signed By: 04/30/231823 Normal [facility] Urea nitrogen [Mass/volume] in Serum or PlasmaOrdered By: Elier Jackson on 04-30-2023 Urea nitrogen [Mass/Vol] 6 mg/dL Low 7-25 [facility] Comment on above: Performed By: #### H CGQNT #### [facility] [address] [place] [address] Urine bacteria detection by automated methodOrdered By: Elier Jackson on 04-30-2023 Bacteria Auto Ql (U) None seen None Seen [facility] Urine clarity by refractomet ry automatedOrdered By: Elier Jackson on 04-30-2023 Clarity Refractometry automated (U) Clear Clear [facility] Urine glucose measurement by automated test strip (mass/volume)Ordered By: Elier Jackson on 04-30-2023 Glucose Auto test strip (U) [Mass/Vol] Normal mg/dL Normal [facility] Urine hemoglobin detection b y automated test stripOrdered By: Elier Jackson on 04-30-2023 Hemoglobin Auto test strip Ql (U) 2+ Negative [facility] Urine leukocyte esterase det ection by automated test stripOrdered By: Elier Jackson on 04-30-2023 Leukocyte esterase Auto test strip Ql (U) Negative Negative [facility] Urine pH measurement by auto mated test stripOrdered By: Elier Jackson on 04-30-2023 pH (U) 5.5 [pH] Normal 5.0-9.0 [facility] Comment on above: Order Comment: Name Collection Type:: Clean-Voided Midstream Performed By: #### U HCG, ADDONUAPLUS #### [facility] [address] Urobilinogen Auto test strip (U) [Mass/Vol]Ordered By: Elier Jackson on 04-30-2023 Urobilinogen (U) [Mass/Vol] Normal mg/dL Normal [facility] CHEMISTRYOrdered By: SYSTEM SYSTEM on 04-24-2023 Anion gap [Moles/Vol] 14 mmol/L Normal 6 - 16 mEq/L [facility] [place]isol Calcium [Mass/Vol] 9.4 mg/dL Normal 8.9 - 11. 1 mg/dL [facility] Chloride [Moles/Vol] 105 mmol/L Normal 101 - 1 11 mmol/L [facility] CO2 [Moles/Vol] 23 mmol/L Normal 21 - 31 mmol/L [facility] [place] [facility] Creatinine [Mass/Vol] 0.7 mg/dL Normal 0.5 - 1.3 mg/dL [facility] [place] Remisol GFR/1.73 sq M.predicted among non-blacks MDRD (S/P/Bld) [Vol rate/Area] 115 mL/min/1.73 m2 Normal >=59mL/min/ 1.73 m2 [facility] [place] Chem S Comment on [...] 138 mmol/L Normal 135 - 145 mmol/L [facility] Remisol Urea nitrogen [Mass/Vol] 6 mg/dL Normal 5 - 21 mg/dL [facility] Remisol Urea nitrogen/Creatinine [Mass ratio] 9 mg/mg Low 10 - 20 [facility] HEMATOLOGYOrdered By: SYSTEM SYSTEM on 04-24-2023 Basophils/100 [...] (04/24/23 1:55 PM) Normal [facility]ero URINALYSISOrdered By: Chance Guthrie on 04-24-2023 Bacteria [...] PM) Normal Negative [facility] UA Auto SS [place].plasma/[place]. RBC (Bld) [Mass ratio] 0-3 /HPF Normal [...] Desc Clean Catch (04/24/23 2:56 PM) Normal [facility] UA Auto SS Urobilinogen Qn (U) [id number] {Ivone'U}/dL Normal 0.0 - 1.0 EU/dL [facility] UA Auto SS WBC Auto Ql (U) Trace *ABN* (04/24/23 2:56 PM) Invalid Interpretation Code Negative [facility] UA Auto SS WBC LM.HPF (Urine sed) [#/Area] 0-5 /HPF Normal 0-5/HPF [facility] UA Auto SS Anisocytosis [Presence] in B lood by Light microscopyOrdered By: Ming Childress on 04-02-2023 Anisocytosis Ql (Bld) Moderate Normal [facility] Comment on above: Performed By: #### U HCG, ADDONUAPLUS #### [address] Automated erythrocytes count in urine sediment (number/area)Ordered By: Ming Childress on 04-02-2023 RBC Auto (Urine sed) [#/Area] 20-49 [HPF] 0-4 [facility] Automated leukocytes count i n urine sediment (number/area)Ordered By: Ming Childress on 04-02-2023 WBC Auto (Urine sed) [#/Area] 3-4 [HPF] 0-4 [facility] Automated urine color determ inationOrdered By: Ming Childress on 04-02-2023 Color (U) Yellow Normal Yellow [facility] Comment on above: Order Comment: Name Collection Type:: Clean-Voided Midstream Performed By: #### U HCG, ADDONUAPLUS #### [address] Basic Metabolic Panelon 03-14 Creatinine Clr Calc Pharmacy 97.72 Normal [facility] Comment on above: Result Comment: PERF ORMED BY: [place] [address] PATHOLOGIST [employer] MANAGER FARNAZ ZULETA M.D. Performed By: #### U HCG, ADDONUAPLUS #### [address] GFR/1.73 sq M.predicted MDRD (S/P/Bld) [Vol rate/Area] mL/min/{1.73_m2} Normal [facility] Comment on above: Performed By: #### U HCG, ADDONUAPLUS #### [address] Basophils Auto (Bld) [#/Vol] Ordered By: Ming Childress on 04-02-2023 Basophils (Bld) [#/Vol] N/A F [facility] Basophils/100 WBC Auto (Bld) Ordered By: Ming Childress on 04-02-2023 Basophils/100 WBC (Bld) N/A F [facility] Basophils/100 leukocytes in Blood by Manual countOrdered By: Ming Childress on 04-02-2023 Basophils/100 WBC (Bld) 1 % Normal 0-2 [facility] Comment on above: Performed By: #### U HCG, ADDONUAPLUS #### [facility] [address] [place] [address] Bilirubin Test strip Ql (U)O rdered By: Ming Childress on 04-02-2023 Bilirubin Ql (U) Negative Negative [facility] Calcium [Mass/volume] in Ser um or PlasmaOrdered By: Ming Childress on 04-02-2023 Calcium [Mass/Vol] 9.2 mg/dL Normal 8.6-10.3 [facility] Comment on above: Performed By: #### U HCG, ADDONUAPLUS #### [facility] [address] Carbon dioxide, total [Moles /volume] in Serum or PlasmaOrdered By: Ming Childress on 04-02-2023 CO2 [Moles/Vol] 18.5 mmol/L Low 21.0-31.0 [facility] Comment on above: Performed By: #### U HCG, ADDONUAPLUS #### [address] Chloride [Moles/volume] in S binu or PlasmaOrdered By: Ming Childress on 04-02-2023 Chloride [Moles/Vol] 108 mmol/L High 98-107 [facility] Comment on above: Performed By: #### U HCG, ADDONUAPLUS #### [address] Creatinine [Mass/volume] in Serum or PlasmaOrdered By: Ming Childress on 04-02-2023 Creatinine [Mass/Vol] 0.84 mg/dL Normal 0.60-1.20 [facility] Comment on above: Performed By: #### U HCG, ADDONUAPLUS #### [address] Diff and CBCon 04-02-2023 Hypochromasia Slight Normal [facility] Comment on above: Performed By: #### U HCG, ADDONUAPLUS #### [address] Mean Corpuscular HGB Conc 31.8 g/dL Low 32.0-35.0 [facility] Comment on above: Performed By: #### U HCG, ADDONUAPLUS #### [place] [address] [place] Monocytes/100 WBC (Bld) 18.83 % Normal 0.00-20.00 [facility] Comment on above: Performed By: #### U HCG, ADDONUAPLUS #### [address] Nucleated Red Blood Cell 3 /100{WBC} High 0-0 [facility] Comment on above: Performed By: #### U HCG, ADDONUAPLUS #### [address] Ovalocytes Slight Normal [facility] Comment on above: Performed By: #### U HCG, ADDONUAPLUS #### [address] Platelet Estimate Increased Normal Normal [facility] Comment on above: Performed By: #### U HCG, ADDONUAPLUS #### [address] Platelet Morphology Normal Normal Normal [facility] [facility] Comment on above: Result Comment: PERF ORMED BY: [place] [address] PATHOLOGIST [employer] SERVICES MANAGER FARNAZ ZULETA M.D. Performed By: #### U HCG, ADDONUAPLUS #### [address] Poikilocytosis Slight Normal [facility] Comment on above: Performed By: #### U HCG, ADDONUAPLUS #### [address] Polychromasia Moderate Normal [facility] Comment on above: Performed By: #### U HCG, ADDONUAPLUS #### [place] [address] [place] Smudge Cells Slight Normal [facility] Comment on above: Performed By: #### U HCG, ADDONUAPLUS #### [address] Toxic Vacuolation Slight Normal [facility] Comment on above: Performed By: #### U HCG, ADDONUAPLUS #### [place] [address] [place] Dipstick and Microscopicon 1 Appearance (U) Clear Normal Clear [facility] Comment on above: Order Comment: Name Collection Type:: Clean-Voided Midstream Performed By: #### U HCG, ADDONUAPLUS #### [facility] [address] [place] [address] Bacteria,Urine None Seen Normal None Seen [facility] Comment on above: Order Comment: Name Collection Type:: Clean-Voided Midstream Performed By: #### U HCG, ADDONUAPLUS #### [facility] [address] [place] [address] Bilirubin,Urine Negative Normal Negative [facility] Comment on above: Order Comment: Name Collection Type:: Clean-Voided Midstream Performed By: #### U HCG, ADDONUAPLUS #### [address] Glucose Ql (U) Normal Normal Normal [facility] Comment on above: Order Comment: Name Collection Type:: Clean-Voided Midstream Performed By: #### U HCG, ADDONUAPLUS #### [place] [address] [place] Hyaline Casts,Urine 0-8 Normal 0-8 [facility] Comment on above: Order Comment: Name Collection Type:: Clean-Voided Midstream Performed By: #### U HCG, ADDONUAPLUS #### [address] Ketones Ql (U) Trace High Negative [facility] Comment on above: Order Comment: Name Collection Type:: Clean-Voided Midstream Performed By: #### U HCG, ADDONUAPLUS #### [address] Leukocyte esterase Test strip Ql (U) 1+ High Negative [facility] Comment on above: Order Comment: Name Collection Type:: Clean-Voided Midstream Performed By: #### U HCG, ADDONUAPLUS #### [address] Nitrite,Urine Negative Normal Negative [facility] Comment on above: Order Comment: Name Collection Type:: Clean-Voided Midstream Performed By: #### U HCG, ADDONUAPLUS #### [address] Occult Blood,Urine 3+ High Negative [facility] Comment on above: Order Comment: Name Collection Type:: Clean-Voided Midstream Performed By: #### U HCG, ADDONUAPLUS #### [address] Protein,Urine Negative Normal Negative [facility] Comment on above: Order Comment: Name Collection Type:: Clean-Voided Midstream Performed By: #### U HCG, ADDONUAPLUS #### [address] RBC,Urine 20-49 High 0-4 [facility] Comment on above: Order Comment: Name Collection Type:: Clean-Voided Midstream Performed By: #### U HCG, ADDONUAPLUS #### [address] Specificy Alexis,Urine 1.018 Normal 1.001-1.030 [facility] Comment on above: Order Comment: Name Collection Type:: Clean-Voided Midstream Performed By: #### U HCG, ADDONUAPLUS #### [address] Squamous Epithelial Cell,Urine 3-4 High 0-2 [facility] Comment on above: Order Comment: Name Collection Type:: Clean-Voided Midstream Performed By: #### U HCG, ADDONUAPLUS #### [address] Urobilinogen,Urine Normal Normal Normal [facility] Comment on above: Order Comment: Name Collection Type:: Clean-Voided Midstream Performed By: #### U HCG, ADDONUAPLUS #### [place] [address] [place] WBC,Urine 3-4 Normal 0-4 [facility] Comment on above: Order Comment: Name Collection Type:: Clean-Voided Midstream Performed By: #### U HCG, ADDONUAPLUS #### [place] [address] [place] Eosinophils Auto (Bld) [#/Vo l]Ordered By: Mingsil Childress on 04-02-2023 Eosinophils (Bld) [#/Vol] N/A [facility] Eosinophils/100 WBC Auto (Bl d)Ordered By: Ming Monroe on 04-02-2023 Eosinophils/100 WBC (Bld) N/A [facility] Eosinophils/100 leukocytes i n Blood by Manual countOrdered By: Ming Monroe on 04-02-2023 Eosinophils/100 WBC (Bld) 4 % High 1-3 [facility] Comment on above: Performed By: #### U HCG, ADDONUAPLUS #### [facility] [address] [place] [address] Erythrocyte distribution wid th [Ratio] by Automated countOrdered By: Ming Childress on 04-02-2023 Erythrocyte distribution width (RBC) [Ratio] 15.2 % Normal 11.9-15.3 [facility] Comment on above: Performed By: #### U HCG, ADDONUAPLUS #### [facility] [address] [place] [address] Erythrocytes [#/volume] in B lood by Automated countOrdered By: Mingsil Childress on 04-02-2023 RBC (Bld) [#/Vol] 4.67 10*6/uL Normal 3.60-5.00 [facility] Comment on above: Performed By: #### U HCG, ADDONUAPLUS #### [facility] [address] [place] [address] [place] Glucose [Mass/volume] in Ser um or [...] the diagnosis of Diabetes Mellitus. Result Comment: [place] om Glucose Reference Range is dependent on time and content of last meal. Glucose of more than 200 mg/dL in a nonstressed, ambulatory subject supports the diagnosis of Diabetes Mellitus. ADA recommended reference range Performed By: #### U HCG, ADDONUAPLUS #### [facility] [address] [place] [address] HCG ( test) IA.rapi d Ql (U)Ordered By: Ming Childress on 04-02-2023 HCG ( test) Ql (U) Negative [facility] HCG,Urineon 04-02-2023 Beta HCG ( test) Ql (U) Negative Normal [facility] Comment on above: Order Comment: Name Collection Type:: Clean-Voided Midstream Result Comment: PERF ORMED BY: [place] [address] PATHOLOGIST [employer] MANAGER FARNAZ ZULETA M.D. Performed By: #### U HCG, ADDONUAPLUS #### [address] Hematocrit [Volume Fraction] of Blood by Automated countOrdered By: Ming Childress on 04-02-2023 Hematocrit (Bld) [Volume fraction] 36.1 % Normal 34.0-46.4 [facility] Comment on above: Performed By: #### U HCG, ADDONUAPLUS #### [address] Hemoglobin [Mass/volume] in BloodOrdered By: Ming Childress on 04-02-2023 Hemoglobin (Bld) [Mass/Vol] 11.5 g/dL Low 11.8-15.4 [facility] Comment on above: Performed By: #### U HCG, ADDONUAPLUS #### [address] Hypochromia LM Ql (Bld)Order ed By: Ming Childress on 04-02-2023 Hypochromia Ql (Bld) Slight [facility] Ketones Auto test strip (U) [Mass/Vol]Ordered By: Ming Childress on 04-02-2023 Ketones (U) [Mass/Vol] Trace Negative [facility] - UrinalysisOrder ed By: Ming Childress on 04-02-2023 Hyaline casts LM Ql (Urine sed) 0-8 [LPF] 0-8 [facility] Leukocytes [#/volume] correc flo for nucleated erythrocytes in Blood by Automated counOrdered By: Ming Childress on 04-02-2023 WBC corrected for nucl RBC Auto (Bld) [#/Vol] 6.8 10*3/uL 3.8-11.6 [facility] Leukocytes [#/volume] in Blo od by Automated countOrdered By: Ming Childress on 04-02-2023 WBC (Bld) [#/Vol] 6.8 10*3/uL Normal 3.8-11.6 [facility] Comment on above: Performed By: #### U HCG, ADDONUAPLUS #### [facility] [address] [place] [address] Lymphocytes Auto (Bld) [#/Vo l]Ordered By: Ming Childress on 04-02-2023 Lymphocytes (Bld) [#/Vol] N/A [facility] Lymphocytes/100 WBC Auto (Bl d)Ordered By: Ming Childress on 04-02-2023 Lymphocytes/100 WBC (Bld) N/A [facility] Lymphocytes/100 leukocytes i n Blood by Manual countOrdered By: Ming Childress on 04-02-2023 Lymphocytes/100 WBC (Bld) 43 % High 18-42 [facility] Comment on above: Performed By: #### U HCG, ADDONUAPLUS #### [facility] [address] [place] [address] MCH [Entitic mass] by Automa flo countOrdered By: Ming Childress on 04-02-2023 MCH (RBC) [Entitic mass] 24.5 pg Low 24.7-34.3 [facility] Comment on above: Performed By: #### U HCG, ADDONUAPLUS #### [facility] [address] [place] [address] MCHC Auto (RBC) [Mass/Vol]Or dered By: Ming Childress on 04-02-2023 MCHC (RBC) [Mass/Vol] 31.8 g/dL 32.0-35.0 [facility] MCV [Entitic volume] by Auto mated countOrdered By: Ming Childress on 04-02-2023 MCV (RBC) [Entitic vol] 77.3 fL Low 80-100 [facility] Comment on above: Performed By: #### U HCG, ADDONUAPLUS #### [facility] [address] [place] [address] Manual blood segmented neutr ophils/100 leukocytesOrdered By: Ming Childress on 04-02-2023 Segmented neutrophils/100 WBC (Bld) 47 % Low 50-70 [facility] Comment on above: Performed By: #### U HCG, ADDONUAPLUS #### [facility] [address] [place] [address] Monocyte distribution width [Entitic volume] in Blood by AutomatedOrdered By: Ming Childress on 04-02-2023 Monocyte distribution width Auto (Bld) [Entitic vol] 18.83 % 0.00-20.00 [facility] Monocytes Auto (Bld) [#/Vol] Ordered By: Ming Childress on 04-02-2023 Monocytes (Bld) [#/Vol] N/A [facility] Monocytes/100 WBC Auto (Bld) Ordered By: Ming Childress on 04-02-2023 Monocytes/100 WBC (Bld) N/A [facility] Monocytes/100 leukocytes in Blood by Manual countOrdered By: Ming Childress on 04-02-2023 Monocytes/100 WBC (Bld) 5 % Normal 2-11 [facility] Comment on above: Performed By: #### U HCG, ADDONUAPLUS #### [facility] [address] [place] [address] Neutrophils Auto (Bld) [#/Vo l]Ordered By: Ming Childress on 04-02-2023 Neutrophils (Bld) [#/Vol] N/A [facility] Neutrophils/100 WBC Auto (Bl d)Ordered By: Ming Childress on 04-02-2023 Neutrophils/100 WBC (Bld) N/A [facility] Nitrite Test strip Ql (U)Ord ered By: Ming Childress on 04-02-2023 Nitrite Ql (U) Negative Negative [facility] No Panel InformationOrdered By: Ming Childress on 04-02-2023 Estimated GFR (CKD-EPI) > 60.0 mL/Min [facility] Creatinine Clearance (Chem 97.72 [facility] Nucleated RBC/100 WBC Manual cnt (Bld) [Ratio]Ordered By: Ming Childress on 04-02-2023 Nucleated RBC/100 WBC (Bld) [Ratio] 3 /100{WBC} 0-0 [facility] Nucleated erythrocytes [Pres ence] in Blood by Automated countOrdered By: Ming Childress on 04-02-2023 Nucleated RBC Auto Ql (Bld) N/A [facility] Ovalocyte detectionOrdered B y: Ming Childress on 04-02-2023 Ovalocytes LM Ql (Bld) [facility] Platelet adequacy [Presence] in Blood by Light microscopyOrdered By: Ming Childress on 04-02-2023 Platelets LM Ql (Bld) Increased Normal [facility] Platelet mean volume [Entiti c volume] in Blood by Automated countOrdered By: Ming Childress on 04-02-2023 Platelet mean volume (Bld) [Entitic vol] 8.1 fL Normal 6.3-10.7 [facility] Comment on above: Result Comment: PERF ORMED BY: [place] [address] PATHOLOGIST [employer] MANAGER FARNAZ ZULETA M.D. Performed By: #### U HCG, ADDONUAPLUS #### [address] Platelet morphology finding [Identifier] in BloodOrdered By: Ming Childress on 04-02-2023 Platelet morphology finding Nom (Bld) Normal Normal [facility] Platelets [#/volume] in Bloo d by Automated countOrdered By: Ming Childress on 04-02-2023 Platelets (Bld) [#/Vol] 492 10*3/uL High 150-450 [facility] Comment on above: Performed By: #### U HCG, ADDONUAPLUS #### [address] Poikilocytosis [Presence] in Blood by Light microscopyOrdered By: Ming Childress on 04-02-2023 Poikilocytosis LM Ql (Bld) Slight [facility] Polychromasia [Presence] in Blood by Light microscopyOrdered By: Ming Childress on 04-02-2023 Polychromasia LM Ql (Bld) Moderate [facility] Potassium [Moles/volume] in Serum or PlasmaOrdered By: Ming Childress on 04-02-2023 Potassium [Moles/Vol] 3.7 mmol/L Normal 3.5-5.1 [facility] Comment on above: Performed By: #### U HCG, ADDONUAPLUS #### [address] Protein Auto test strip (U) [Mass/Vol]Ordered By: Mnig Childress on 04-02-2023 Protein (U) [Mass/Vol] Negative Negative [facility] RBC morphologyOrdered By: Carmen ttvicky Childress on 04-02-2023 RBC morphology finding Nom (Bld) N/A [facility] Serum or plasma anion gap de terminationOrdered By: Ming Childress on 04-02-2023 Anion gap [Moles/Vol] 14.2 mmol/L Normal 6.0-15.0 [facility] Comment on above: Performed By: #### U HCG, ADDONUAPLUS #### [address] Smudge cell detectionOrdered By: Ming Childress on 04-02-2023 Smudge cells LM Ql (Bld) Slight [facility] Sodium [Moles/volume] in Ser um or PlasmaOrdered By: Ming Childress on 04-02-2023 Sodium [Moles/Vol] 137 mmol/L Normal 136-145 [facility] Comment on above: Performed By: #### U HCG, ADDONUAPLUS #### [address] Specific gravity Auto test s trip (U) [Rel density]Ordered By: Ming Childress on 04-02-2023 Specific gravity (U) [Rel density] 1.018 1.001-1.030 [facility] Squamous epithelial cells de tection in urine sediment by light microscopyOrdered By: Ming Childress on 04-02-2023 Epithelial cells.squamous LM Ql (Urine sed) 3-4 [HPF] 0-2 [facility] Toxic leukocyte vacuolation detectionOrdered By: Ming Childress on 04-02-2023 Leukocyte toxic vacuoles LM Ql (Bld) Slight [facility] Urea nitrogen [Mass/volume] in Serum or PlasmaOrdered By: Ming Childress on 04-02-2023 Urea nitrogen [Mass/Vol] 9 mg/dL Normal 7-25 [facility] Comment on above: Performed By: #### U HCG, ADDONUAPLUS #### [facility] [address] Urine bacteria detection by automated methodOrdered By: Ming Childress on 04-02-2023 Bacteria Auto Ql (U) None seen None Seen [facility] Urine clarity by refractomet ry automatedOrdered By: Ming Childress on 04-02-2023 Clarity Refractometry automated (U) Clear Clear [facility] Urine glucose measurement by automated test strip (mass/volume)Ordered By: Ming Childress on 04-02-2023 Glucose Auto test strip (U) [Mass/Vol] Normal mg/dL Normal [facility] Urine hemoglobin detection b y automated test stripOrdered By: Ming Childress on 04-02-2023 Hemoglobin Auto test strip Ql (U) 3+ Negative [facility] Urine leukocyte esterase det ection by automated test stripOrdered By: Ming Childress on 04-02-2023 Leukocyte esterase Auto test strip Ql (U) 1+ Negative [facility] Urine pH measurement by auto mated test stripOrdered By: Ming Childress on 04-02-2023 pH (U) 6.0 [pH] Normal 5.0-9.0 [facility] Comment on above: Order Comment: Name Collection Type:: Clean-Voided Midstream Performed By: #### U HCG, ADDONUAPLUS #### [facility] [address] Urobilinogen Auto test strip (U) [Mass/Vol]Ordered By: Ming Childress on 04-02-2023 Urobilinogen (U) [Mass/Vol] Normal mg/dL Normal [facility] Alanine aminotransferase [En zymatic activity/volume] in Serum or PlasmaOrdered By: Ming Childress on 03-29-2023 ALT [Catalytic activity/Vol] 14 U/L Normal 7-52 [facility] Comment on above: Performed By: #### B MP, LIPASE, HEPATIC #### [address] Albumin [Mass/volume] in Ser um or Plasma by Bromocresol green (BCG) dye binding methoOrdered By: Ming Childress on 03-29-2023 Albumin BCG dye [Mass/Vol] 4.0 g/dL 3.5-5.7 [facility] Alkaline phosphatase [Enzyma tic activity/volume] in Serum or PlasmaOrdered By: Ming Childress on 03-29-2023 ALP [Catalytic activity/Vol] 61 U/L Normal 34-104 [facility] Comment on above: Performed By: #### B MP, LIPASE, HEPATIC #### [address] Aspartate aminotransferase [ Enzymatic activity/volume] in Serum or PlasmaOrdered By: Ming Childress on 03-29-2023 AST [Catalytic activity/Vol] 19 U/L Normal 13-39 [facility] Comment on above: Performed By: #### B MP, LIPASE, HEPATIC #### [facility] [address] [place] [address] [place] Automated basophil %Ordered By: Ming Childress on 03-29-2023 Basophils/100 WBC (Bld) 1.3 % Normal . [facility] Comment on above: Performed By: #### U HCG, ADDONUAPLUS #### [place] [address] [place] Automated basophil countOrde red By: Ming Childress on 03-29-2023 Basophils (Bld) [#/Vol] 0.1 10*3/uL Normal 0.0-0.2 [facility] Comment on above: Result Comment: PERF ORMED BY: [place] [address] PATHOLOGIST [employer] MANAGER FARNAZ ZULETA M.D. Performed By: #### U HCG, ADDONUAPLUS #### [address] Automated blood monocyte cou ntOrdered By: Mingsil Childress on 03-29-2023 Monocytes (Bld) [#/Vol] 0.6 10*3/uL Normal 0.0-0.8 [facility] Comment on above: Performed By: #### U HCG, ADDONUAPLUS #### [address] Automated eosinophil %Ordere d By: Ming Childress on 03-29-2023 Eosinophils/100 WBC (Bld) 1.8 % Normal . [facility] Comment on above: Performed By: #### U HCG, ADDONUAPLUS #### [address] Automated eosinophil countOr dered By: Mingsil Childress on 03-29-2023 Eosinophils (Bld) [#/Vol] 0.1 10*3/uL Normal 0.0-0.45 [facility] Comment on above: Performed By: #### U HCG, ADDONUAPLUS #### [address] Automated monocyte %Ordered By: Ming Childress on 03-29-2023 Monocytes/100 WBC (Bld) 7.3 % Normal . [facility] Comment on above: Performed By: #### U HCG, ADDONUAPLUS #### [address] Automated neutrophil %Ordere d By: Ming Childress on 03-29-2023 Neutrophils/100 WBC (Bld) 46.8 % Normal . [facility] Comment on above: Performed By: #### U HCG, ADDONUAPLUS #### [facility] [address] Automated urine color determ inationOrdered By: Ming Childress on 03-29-2023 Color (U) Yellow Normal Yellow [facility] Comment on above: Order Comment: Name Collection Type:: Clean-Voided Midstream Performed By: #### H CGQNT #### [address] Basic Metabolic Panelon 03-13 Creatinine Clr Calc Pharmacy 134.47 Normal [facility] Comment on above: Performed By: #### B MP, LIPASE, HEPATIC #### [address] GFR/1.73 sq M.predicted MDRD (S/P/Bld) [Vol rate/Area] mL/min/{1.73_m2} Normal [facility] Comment on above: Performed By: #### B MP, LIPASE, HEPATIC #### [address] Bilirubin Test strip Ql (U)O rdered By: Ming Childress on 03-29-2023 Bilirubin Ql (U) Negative Negative [facility] Bilirubin.direct [Mass/volum e] in Serum or PlasmaOrdered By: Ming Childress on 03-29-2023 Bilirubin.direct [Mass/Vol] 0.10 mg/dL 0.03-0.18 [facility] Bilirubin.total [Mass/volume ] in Serum or PlasmaOrdered By: Ming Childress on 03-29-2023 Bilirubin [Mass/Vol] 0.3 mg/dL Normal 0.3-1.0 [facility] Comment on above: Performed By: #### B MP, LIPASE, HEPATIC #### [address] abdomen pelvis w conon CT abdomen pelvis w con [facility] [place] [address] [place] [address] CT Scan Report Signed Patient: Antonia Noyola MR#: [id number] : 1985 Acct:[id number] Age/Sex: 38 / F ADM Date: 03/29/23 Loc: Room: [address] [place] [address] Type: ADM IN Attending Dr: Christi Aquino [...] Alesha Tejada M.D.03/29/2023 7:14 AM Dictation Location: [place] [address] Transcribed By: [facility] 03/29/23713 Dictated By: Alesha Tejada MD 03/29/2310 Signed By: 03/29/23713 Normal [facility] Calcium [Mass/volume] in Ser um or PlasmaOrdered By: Ming Childress on 03-29-2023 Calcium [Mass/Vol] 8.9 mg/dL Normal 8.6-10.3 [facility] Comment on above: Performed By: #### B MP, LIPASE, HEPATIC #### [address] Carbon dioxide, total [Moles /volume] in Serum or PlasmaOrdered By: Ming Childress on 03-29-2023 CO2 [Moles/Vol] 22.2 mmol/L Normal 21.0-31.0 [facility] Comment on above: Performed By: #### B MP, LIPASE, HEPATIC #### [address] Chloride [Moles/volume] in S binu or PlasmaOrdered By: Ming Childress on 03-29-2023 Chloride [Moles/Vol] 107 mmol/L Normal 98-107 [facility] Comment on above: Performed By: #### B MP, LIPASE, HEPATIC #### [address] Complete Blood Count Auto Di ffon 03-29-2023 Mean Corpuscular HGB Conc 32.0 g/dL Normal 32.0-35.0 [facility] Comment on above: Performed By: #### U HCG, ADDONUAPLUS #### [address] NRBC% 0.1 /100{WBC} Normal 0-0.5 [facility] Comment on above: Performed By: #### U HCG, ADDONUAPLUS #### [address] Creatinine [Mass/volume] in Serum or PlasmaOrdered By: Ming Childress on 03-29-2023 Creatinine [Mass/Vol] 0.63 mg/dL Normal 0.60-1.20 [facility] Comment on above: Performed By: #### B MP, LIPASE, HEPATIC #### [place] [address] [place] Erythrocyte distribution wid th [Ratio] by Automated countOrdered By: Mnig Arangoarthy on 03-29-2023 Erythrocyte distribution width (RBC) [Ratio] 15.2 % Normal 11.9-15.3 [facility] Comment on above: Performed By: #### U HCG, ADDONUAPLUS #### [facility] [address] Erythrocytes [#/volume] in B lood by Automated countOrdered By: Ming Monroe on 03-29-2023 RBC (Bld) [#/Vol] 4.34 10*6/uL Normal 3.60-5.00 [facility] Comment on above: Performed By: #### U HCG, ADDONUAPLUS #### [facility] [address] [place] [address] Glucose [Mass/volume] in Ser um or PlasmaOrdered By: Ming Childress on 03-29-2023 Glucose [Mass/Vol] 90 mg/dL Normal 70-100 [facility] Comment on above: ADA recommended refe rence rangeRandom Glucose Reference Range is dependent on time and content of last meal. Glucose of more than 200 mg/dL in a nonstressed, ambulatory subject supports the diagnosis of Diabetes Mellitus. Result Comment: [place] om Glucose Reference Range is dependent on time and content of last meal. Glucose of more than 200 mg/dL in a nonstressed, ambulatory subject supports the diagnosis of Diabetes Mellitus. ADA recommended reference range Performed By: #### B MP, LIPASE, HEPATIC #### [facility] [address] [place] [address] HCG ( test) IA.rapi d Ql (U)Ordered By: Ming Childress on 03-29-2023 HCG ( test) Ql (U) Negative [facility] HCG,Urineon 03-29-2023 Beta HCG ( test) Ql (U) Negative Normal [facility] Comment on above: Order Comment: Name Collection Type:: Clean-Voided Midstream Result Comment: PERF ORMED BY: [place] [address] PATHOLOGIST [employer] MANAGER JIANLAN SUN M.D. Performed By: #### H CGQNT #### [address] Hematocrit [Volume Fraction] of Blood by Automated countOrdered By: Ming Childress on 03-29-2023 Hematocrit (Bld) [Volume fraction] 32.6 % Low 34.0-46.4 [facility] [facility] Comment on above: Performed By: #### U HCG, ADDONUAPLUS #### [address] Hemoglobin [Mass/volume] in BloodOrdered By: Ming Childress on 03-29-2023 Hemoglobin (Bld) [Mass/Vol] 10.4 g/dL Low 11.8-15.4 [facility] Comment on above: Performed By: #### U HCG, ADDONUAPLUS #### [address] Hepatic Panelon 03-29-2023 Albumin [Mass/Vol] 4.0 g/dL Normal 3.5-5.7 [facility] Comment on above: Performed By: #### B MP, LIPASE, HEPATIC #### [address] Bilirubin,Indirect 0.2 mg/dL Normal [facility] Comment on above: Performed By: #### B MP, LIPASE, HEPATIC #### [address] Bilirubin.indirect [Mass/Vol] 0.10 mg/dL Normal 0.03-0.18 [facility] Comment on above: Performed By: #### B MP, LIPASE, HEPATIC #### [address] Ketones Auto test strip (U) [Mass/Vol]Ordered By: Ming Childress on 03-29-2023 Ketones (U) [Mass/Vol] Negative Negative [facility] Lactate [Moles/volume] in Se rum or PlasmaOrdered By: Megan Muniz on 03-29-2023 Lactate [Moles/Vol] 0.8 mmol/L Normal 0.5-2.2 [facility] Comment on above: Result Comment: PERF ORMED BY: [place] [address] PATHOLOGIST [employer] MANAGER FARNAZ ZULETA M.D. Performed By: #### H CGQNT #### [place] [address] [place] Leukocytes [#/volume] correc flo for nucleated erythrocytes in Blood by Automated counOrdered By: Ming Childress on 03-29-2023 WBC corrected for nucl RBC Auto (Bld) [#/Vol] 7.5 10*3/uL 3.8-11.6 [facility] Leukocytes [#/volume] in Blo od by Automated countOrdered By: Ming Childress on 03-29-2023 WBC (Bld) [#/Vol] 7.5 10*3/uL Normal 3.8-11.6 [facility] Comment on above: Performed By: #### U HCG, ADDONUAPLUS #### [place] [address] [place] Lipase [Enzymatic activity/v olume] in Serum or PlasmaOrdered By: Ming Childress on 03-29-2023 Lipase [Catalytic activity/Vol] 30.0 U/L Normal 11.0-82.0 [facility] Comment on above: Result Comment: PERF ORMED BY: [place] [address] PATHOLOGIST [employer] MANAGER FARNAZ ZULETA M.D. Performed By: #### B MP, LIPASE, HEPATIC #### [place] [address] [place] Lymphocytes [#/volume] in Bl ood by Automated countOrdered By: Ming Childress on 03-29-2023 Lymphocytes (Bld) [#/Vol] 3.2 10*3/uL Normal 1.00-4.8 [facility] Comment on above: Performed By: #### U HCG, ADDONUAPLUS #### [place] [id number] [place] Lymphocytes/100 leukocytes i n Blood by Automated countOrdered By: Ming Childress on 03-29-2023 Lymphocytes/100 WBC (Bld) 42.8 % Normal . [facility] Comment on above: Performed By: #### U HCG, ADDONUAPLUS #### [facility] [address] [place] [address] MCH [Entitic mass] by Automa flo countOrdered By: Ming Childress on 03-29-2023 MCH (RBC) [Entitic mass] 24.1 pg Low 24.7-34.3 [facility] Comment on above: Performed By: #### U HCG, ADDONUAPLUS #### [facility] [address] [place] [address] MCHC Auto (RBC) [Mass/Vol]Or dered By: Ming Childress on 03-29-2023 MCHC (RBC) [Mass/Vol] 32.0 g/dL 32.0-35.0 [facility] MCV [Entitic volume] by Auto mated countOrdered By: Ming Childress on 03-29-2023 MCV (RBC) [Entitic vol] 75.2 fL Low 80-100 [facility] Comment on above: Performed By: #### U HCG, ADDONUAPLUS #### [facility] [address] [place] [address] Neutrophils [#/volume] in Bl ood by Automated countOrdered By: Ming Childress on 03-29-2023 Neutrophils (Bld) [#/Vol] 3.5 10*3/uL Normal 1.8-7.7 [facility] Comment on above: Performed By: #### U HCG, ADDONUAPLUS #### [facility] [address] [place] [address] Nitrite Test strip Ql (U)Ord ered By: Ming Childress on 03-29-2023 Nitrite Ql (U) Negative Negative [facility] No Panel InformationOrdered By: Ming Childress on 03-29-2023 Estimated GFR (CKD-EPI) > 60.0 mL/Min [facility] Creatinine Clearance (Chem 134.47 [facility] Nucleated erythrocytes [Pres ence] in Blood by Automated countOrdered By: Ming Childress on 03-29-2023 Nucleated RBC Auto Ql (Bld) 0.1 /100{WBC} 0-0.5 [facility] Platelet mean volume [Entiti c volume] in Blood by Automated countOrdered By: Ming Childress on 03-29-2023 Platelet mean volume (Bld) [Entitic vol] 8.0 fL Normal 6.3-10.7 [facility] Comment on above: Performed By: #### U HCG, ADDONUAPLUS #### [facility] [address] [place] [address] Platelets [#/volume] in Bloo d by Automated countOrdered By: Ming Childress on 03-29-2023 Platelets (Bld) [#/Vol] 396 10*3/uL Normal 150-450 [facility] Comment on above: Performed By: #### U HCG, ADDONUAPLUS #### [facility] [address] [place] [address] Potassium [Moles/volume] in Serum or PlasmaOrdered By: Ming Childress on 03-29-2023 Potassium [Moles/Vol] 3.6 mmol/L Normal 3.5-5.1 [facility] Comment on above: Performed By: #### B MP, LIPASE, HEPATIC #### [facility] [address] [place] [address] Protein Auto test strip (U) [Mass/Vol]Ordered By: Ming Childress on 03-29-2023 Protein (U) [Mass/Vol] Negative Negative [facility] Protein [Mass/volume] in Ser um or PlasmaOrdered By: Ming Childress on 03-29-2023 Protein [Mass/Vol] 6.8 g/dL Normal 6.4-8.9 [facility] Comment on above: Performed By: #### B MP, LIPASE, HEPATIC #### [facility] [address] [place] [address] Serum globulin measurement b y calculation (mass/volume)Ordered By: Ming Childress on 03-29-2023 Globulin (S) [Mass/Vol] 2.8 g/dL Normal [facility] Comment on above: Performed By: #### B MP, LIPASE, HEPATIC #### [address] Serum or plasma albumin/glob ulin mass ratioOrdered By: Ming Childress on 03-29-2023 Albumin/Globulin [Mass ratio] 1.4 {ratio} Normal [facility] Comment on above: Performed By: #### B MP, LIPASE, HEPATIC #### [address] Serum or plasma anion gap de terminationOrdered By: Ming Childress on 03-29-2023 Anion gap [Moles/Vol] 12.4 mmol/L Normal 6.0-15.0 [facility] Comment on above: Performed By: #### B MP, LIPASE, HEPATIC #### [address] Serum or plasma non-glucuron idated bilirubin measurement (mass/volume)Ordered By: Ming Childress on 03-29-2023 Bilirubin.indirect [Mass/Vol] 0.2 mg/dL [facility] Sodium [Moles/volume] in Ser um or PlasmaOrdered By: Ming Childress on 03-29-2023 Sodium [Moles/Vol] 138 mmol/L Normal 136-145 [facility] Comment on above: Performed By: #### B MP, LIPASE, HEPATIC #### [address] Specific gravity Auto test s trip (U) [Rel density]Ordered By: Ming Childress on 03-29-2023 Specific gravity (U) [Rel density] 1.003 1.001-1.030 [facility] US transvaginalon 03-29-[address] [facility] [place] [address] [place] [address] Ultrasound Report Signed Patient: Antonia Noyola MR#: [id number] : 1985 Acct:[id number] Age/Sex: 38 / F ADM Date: 03/29/23 Loc: 3T Room: [address] [place] [address] Type: ADM IN Attending Dr: Christi Aquino MD Ordering Provider: Ming Childress DO Date of Service: 03/29/23 US/US transvaginal: r/o L ovarian torsion ([id number]) US/US pelvic complete: PAIN Copies to: DO [...] Davi Figueroa M.D.03/29/2023 8:20 AM Dictation Location: [place] [address] Tech: Brooke Naveen Transcribed By: AMBER 03/29/23819 Dictated By: Davi Figueroa DO 03/29/23815 Signed By: 03/29/23819 Normal [facility] Urea nitrogen [Mass/volume] in Serum or PlasmaOrdered By: Ming Childress on 03-29-2023 Urea nitrogen [Mass/Vol] 6 mg/dL Low 7-25 [facility] Comment on above: Performed By: #### B MP, LIPASE, HEPATIC #### [facility] [address] [place] [address] [place] Urinalysison 03-29-2023 Appearance (U) Clear Normal Clear [facility] Comment on above: Order Comment: Name Collection Type:: Clean-Voided Midstream Performed By: #### H CGQNT #### [facility] [address] [place] [id number] [place] Bilirubin,Urine Negative Normal Negative [facility] Comment on above: Order Comment: Name Collection Type:: Clean-Voided Midstream Performed By: #### H CGQNT #### [facility] [address] [place] [address] [place] Glucose Ql (U) Normal Normal Normal [facility] Comment on above: Order Comment: Name Collection Type:: Clean-Voided Midstream Performed By: #### H CGQNT #### [address] Ketones Ql (U) Negative Normal Negative [facility] Comment on above: Order Comment: Name Collection Type:: Clean-Voided Midstream Performed By: #### H CGQNT #### [address] Leukocyte esterase Test strip Ql (U) Negative Normal Negative [facility] Comment on above: Order Comment: Name Collection Type:: Clean-Voided Midstream Performed By: #### H CGQNT #### [place] [address] [place] Nitrite,Urine Negative Normal Negative [facility] Comment on above: Order Comment: Name Collection Type:: Clean-Voided Midstream Performed By: #### H CGQNT #### [place] [address] [place] Occult Blood,Urine Negative Normal Negative [facility] Comment on above: Order Comment: Name Collection Type:: Clean-Voided Midstream Performed By: #### H CGQNT #### [place] [address] [place] Protein,Urine Negative Normal Negative [facility] Comment on above: Order Comment: Name Collection Type:: Clean-Voided Midstream Performed By: #### H CGQNT #### [place] [id number] [place] Specificy Alexis,Urine 1.003 Normal 1.001-1.030 [facility] Comment on above: Order Comment: Name Collection Type:: Clean-Voided Midstream Performed By: #### H CGQNT #### [place] [address] [place] Urobilinogen,Urine Normal Normal Normal [facility] Comment on above: Order Comment: Name Collection Type:: Clean-Voided Midstream Performed By: #### H CGQNT #### [facility] [address] [place] [address] Urine clarity by refractomet ry automatedOrdered By: Ming Childress on 03-29-2023 Clarity Refractometry automated (U) Clear Clear [facility] Urine glucose measurement by automated test strip (mass/volume)Ordered By: Ming Childress on 03-29-2023 Glucose Auto test strip (U) [Mass/Vol] Normal mg/dL Normal [facility] Urine hemoglobin detection b y automated test stripOrdered By: Ming Childress on 03-29-2023 Hemoglobin Auto test strip Ql (U) Negative Negative [facility] Urine leukocyte esterase det ection by automated test stripOrdered By: Ming Childress on 03-29-2023 Leukocyte esterase Auto test strip Ql (U) Negative Negative [facility] Urine pH measurement by auto mated test stripOrdered By: Ming Childress on 03-29-2023 pH (U) 7.5 [pH] Normal 5.0-9.0 [facility] Comment on above: Order Comment: Name Collection Type:: Clean-Voided Midstream Performed By: #### H CGQNT #### [address] Urobilinogen Auto test strip (U) [Mass/Vol]Ordered By: Ming Childress on 03-29-2023 Urobilinogen (U) [Mass/Vol] Normal mg/dL Normal [facility] Automated urine color determ inationOrdered By: Elier Jackson on 02-06-2023 Color (U) Yellow Normal Yellow [facility] Comment on above: Order Comment: Name Collection Type:: Clean-Voided Midstream Performed By: #### U A, UHCG #### [address] Bilirubin Test strip Ql (U)O rdered By: Elier Jackson on 02-06-2023 Bilirubin Ql (U) Negative Negative [facility] CT abdomen pelvis w conon CT abdomen pelvis w con [facility] [place] [address] [place] [address] CT Scan Report Signed Patient: Antonia Noyola MR#: [id number] : 1985 Acct:[id number] Age/Sex: 38 / F ADM Date: 02/05/23 Loc: ER Room: Type: [facility] ER Attending Dr: Copies to: Elier [...] Betancur Jr., D.O.02/06/2023 11:23 AM Dictation Location: [place] [address] Transcribed By: [facility] 02/06/23 1123 Dictated By: Dennis Betancur Jr, DO 02/06/23 1109 Signed By: 02/06/23 1123 Normal [facility] HCG ( test) IA.rapi d Ql (U)Ordered By: Elier Jackson on 02-06-2023 HCG ( test) Ql (U) Negative [facility] HCG,Urineon 02-06-2023 Beta HCG ( test) Ql (U) Negative Normal [facility] Comment on above: Order Comment: Name Collection Type:: Clean-Voided Midstream Result Comment: PERF ORMED BY: [place] [address] PATHOLOGIST [employer] MANAGER FARNAZ ZULETA M.D. Performed By: #### U A, [facility] #### [address] Ketones Auto test strip (U) [Mass/Vol]Ordered By: Elier Jackson on 02-06-2023 Ketones (U) [Mass/Vol] Negative Negative [facility] Nitrite Test strip Ql (U)Ord ered By: Elier Jackson on 02-06-2023 Nitrite Ql (U) Negative Negative [facility] Protein Auto test strip (U) [Mass/Vol]Ordered By: Elier Jackson on 02-06-2023 Protein (U) [Mass/Vol] Negative Negative [facility] Specific gravity Auto test s trip (U) [Rel density]Ordered By: Elier Jackson on 02-06-2023 Specific gravity (U) [Rel density] 1.007 1.001-1.030 [facility] US pelvic completeon 023 US pelvic complete [facility] [place] [address] [place] [address] Ultrasound Report Signed Patient: Antonia Noyola MR#: [id number] : 1985 Acct:[id number] Age/Sex: 38 / F ADM Date: 02/05/23 Loc: ER Room: Type: [facility] ER Attending Dr: Ordering Provider: Elier Jackson DO Date of Service: 02/06/23 US/US pelvic complete: adnexa pain ([id number]) US/US transvaginal: . Copies to: Elier Jackson [...] Betancur Jr., D.O.02/06/2023 11:25 AM Dictation Location: [place] [address] Tech: Jada Webb Transcribed By: AMBER 02/06/23 112 Dictated By: Dennis Betancur Jr, DO 02/06/231122 Signed By: 02/06/23 112 Normal [facility] Urinalysison 02-06-2023 Appearance (U) Clear Normal Clear [facility] Comment on above: Order Comment: Name Collection Type:: Clean-Voided Midstream Performed By: #### U A, UHCG #### [facility] [address] [place] [id number] [place] Bilirubin,Urine Negative Normal Negative [facility] Comment on above: Order Comment: Name Collection Type:: Clean-Voided Midstream Performed By: #### U A, UHCG #### [facility] [address] [place] [address] [place] Glucose Ql (U) Normal Normal Normal [facility] Comment on above: Order Comment: Name Collection Type:: Clean-Voided Midstream Performed By: #### U A, UHCG #### [facility] [address] [place] [address] [place] Ketones Ql (U) Negative Normal Negative [facility] Comment on above: Order Comment: Name Collection Type:: Clean-Voided Midstream Performed By: #### U A, UHCG #### [facility] [address] [place] [id number] [place] Leukocyte esterase Test strip Ql (U) Negative Normal Negative [facility] Comment on above: Order Comment: Name Collection Type:: Clean-Voided Midstream Performed By: #### U A, UHCG #### [facility] [address] [place] [address] [place] Nitrite,Urine Negative Normal Negative [facility] Comment on above: Order Comment: Name Collection Type:: Clean-Voided Midstream Performed By: #### U A, UHCG #### [place] [address] [place] Occult Blood,Urine Negative Normal Negative [facility] Comment on above: Order Comment: Name Collection Type:: Clean-Voided Midstream Performed By: #### U A, UHCG #### [place] [address] [place] Protein,Urine Negative Normal Negative [facility] Comment on above: Order Comment: Name Collection Type:: Clean-Voided Midstream Performed By: #### U A, UHCG #### [place] [address] [place] Specificy Alexis,Urine 1.007 Normal 1.001-1.030 [facility] Comment on above: Order Comment: Name Collection Type:: Clean-Voided Midstream Performed By: #### U A, UHCG #### [place] [address] [place] Urobilinogen,Urine Normal Normal Normal [facility] Comment on above: Order Comment: Name Collection Type:: Clean-Voided Midstream Performed By: #### U A, UHCG #### [place] [address] [place] Urine clarity by refractomet ry automatedOrdered By: Elier Jackson on 02-06-2023 Clarity Refractometry automated (U) Clear Clear [facility] Urine glucose measurement by automated test strip (mass/volume)Ordered By: Elier Jackson on 02-06-2023 Glucose Auto test strip (U) [Mass/Vol] Normal mg/dL Normal [facility] Urine hemoglobin detection b y automated test stripOrdered By: Elier Jackson on 02-06-2023 Hemoglobin Auto test strip Ql (U) Negative Negative [facility] Urine leukocyte esterase det ection by automated test stripOrdered By: Elier Jackson on 02-06-2023 Leukocyte esterase Auto test strip Ql (U) Negative Negative [facility] Urine pH measurement by auto mated test stripOrdered By: Elier Jackson on 02-06-2023 pH (U) 7.0 [pH] Normal 5.0-9.0 [facility] Comment on above: Order Comment: Name Collection Type:: Clean-Voided Midstream Performed By: #### U A, CG #### [address] Urobilinogen Auto test strip (U) [Mass/Vol]Ordered By: Elier Jackson on 02-06-2023 Urobilinogen (U) [Mass/Vol] Normal mg/dL Normal [facility] Alanine aminotransferase [En zymatic activity/volume] in Serum or PlasmaOrdered By: Elier Jackson on 02-05-2023 ALT [Catalytic activity/Vol] 13 U/L Normal 7-52 [facility] Comment on above: Performed By: #### H CGQNT #### [facility] [address] [place] [address] [place] Albumin [Mass/volume] in Ser um or Plasma by Bromocresol green (BCG) dye binding methoOrdered By: Elier Jackson on 02-05-2023 Albumin BCG dye [Mass/Vol] 4.2 g/dL 3.5-5.7 [facility] Alkaline phosphatase [Enzyma tic activity/volume] in Serum or PlasmaOrdered By: Elier Jackson on 02-05-2023 ALP [Catalytic activity/Vol] 52 U/L Normal 34-104 [facility] Comment on above: Performed By: #### H CGQNT #### [facility] [address] [place] [address] [place] Aspartate aminotransferase [ Enzymatic activity/volume] in Serum or PlasmaOrdered By: Elier Jackson on 02-05-2023 AST [Catalytic activity/Vol] 12 U/L Low 13-39 [facility] Comment on above: Performed By: #### H CGQNT #### [address] Automated basophil %Ordered By: Elier Jackson on 02-05-2023 Basophils/100 WBC (Bld) 1.4 % Normal . [facility] Comment on above: Performed By: #### H EPATIC, LIPASE, BMP, CBC #### [address] Automated basophil countOrde red By: Elier Jackson on 02-05-2023 Basophils (Bld) [#/Vol] 0.1 10*3/uL Normal 0.0-0.2 [facility] Comment on above: Result Comment: PERF ORMED BY: [place] [address] PATHOLOGIST [employer] MANAGER FARNAZ ZULETA M.D. Performed By: #### H EPATIC, LIPASE, BMP, CBC #### [address] Automated blood monocyte cou ntOrdered By: Elier Jackson on 02-05-2023 Monocytes (Bld) [#/Vol] 0.7 10*3/uL Normal 0.0-0.8 [facility] Comment on above: Performed By: #### H EPATIC, LIPASE, BMP, CBC #### [address] Automated eosinophil %Ordere d By: Elier Jackson on 02-05-2023 Eosinophils/100 WBC (Bld) 1.5 % Normal . [facility] Comment on above: Performed By: #### H EPATIC, LIPASE, BMP, CBC #### [address] Automated eosinophil countOr dered By: Elier Jackson on 02-05-2023 Eosinophils (Bld) [#/Vol] 0.1 10*3/uL Normal 0.0-0.45 [facility] Comment on above: Performed By: #### H EPATIC, LIPASE, BMP, CBC #### [address] Automated monocyte %Ordered By: Elier Jackson on 02-05-2023 Monocytes/100 WBC (Bld) 8.4 % Normal . [facility] Comment on above: Performed By: #### H EPATIC, LIPASE, BMP, CBC #### [facility] [address] Automated neutrophil %Ordere d By: Elier Jackson on 02-05-2023 Neutrophils/100 WBC (Bld) 44.4 % Normal . [facility] Comment on above: Performed By: #### H EPATIC, LIPASE, BMP, CBC #### [facility] [address] Basic Metabolic Panelon 01-12 Creatinine Clr Calc Pharmacy 115.62 Normal [facility] Comment on above: Performed By: #### H CGQNT #### [address] GFR/1.73 sq M.predicted MDRD (S/P/Bld) [Vol rate/Area] mL/min/{1.73_m2} Normal [facility] Comment on above: Performed By: #### H CGQNT #### [facility] [address] [place] [address] Bilirubin.direct [Mass/volum e] in Serum or PlasmaOrdered By: Elier Jackson on 02-05-2023 Bilirubin.direct [Mass/Vol] 0.10 mg/dL 0.03-0.18 [facility] Bilirubin.total [Mass/volume ] in Serum or PlasmaOrdered By: Elier Jackson on 02-05-2023 Bilirubin [Mass/Vol] 0.3 mg/dL Normal 0.3-1.0 [facility] Comment on above: Performed By: #### H CGQNT #### [facility] [address] [place] [address] Calcium [Mass/volume] in Ser um or PlasmaOrdered By: Elier Jackson on 02-05-2023 Calcium [Mass/Vol] 9.2 mg/dL Normal 8.6-10.3 [facility] Comment on above: Performed By: #### H CGQNT #### [address] [place] [address] [place] Carbon dioxide, total [Moles /volume] in Serum or PlasmaOrdered By: Elier Jackson on 02-05-2023 CO2 [Moles/Vol] 21.5 mmol/L Normal 21.0-31.0 [facility] Comment on above: Performed By: #### H CGQNT #### [facility] [address] [place] [address] [place] Chloride [Moles/volume] in S binu or PlasmaOrdered By: Elier Jackson on 02-05-2023 Chloride [Moles/Vol] 107 mmol/L Normal 98-107 [facility] Comment on above: Performed By: #### H CGQNT #### [facility] [address] Choriogonadotropin.beta subu nit [Units/volume] in Serum or PlasmaOrdered By: Elier Jackson on 02-05-2023 HCG.beta subunit Qn m[IU]/mL [facility] Comment on above: Approximate Approxim ate hCG Gestational Age Range (mIU/ml) (weeks)0.2-1 5-50 1-2 50-500 2-3 100-5,000 3-4 500-10,000 4-5 1,000-50,000 5-6 10,000-100,000 6-8 15,000-200,000 8-12 10,000-100,000 HCG.beta subunit Qn Negative [facility] Complete Blood Count Auto Di ffon 02-05-2023 Mean Corpuscular HGB Conc 31.8 g/dL Low 32.0-35.0 [facility] Comment on above: Performed By: #### H EPATIC, LIPASE, BMP, CBC #### [facility] [address] [place] [address] [place] Monocytes/100 WBC (Bld) 17.33 % Normal 0.00-20.00 [facility] Comment on above: Performed By: #### H EPATIC, LIPASE, BMP, CBC #### [facility] [address] [place] [address] [place] NRBC% 0.1 /100{WBC} Normal 0-0.5 [facility] Comment on above: Performed By: #### H EPATIC, LIPASE, BMP, CBC #### [address] Creatinine [Mass/volume] in Serum or PlasmaOrdered By: Elier Jackson on 02-05-2023 Creatinine [Mass/Vol] 0.71 mg/dL Normal 0.60-1.20 [facility] Comment on above: Performed By: #### H CGQNT #### [address] Erythrocyte distribution wid th [Ratio] by Automated countOrdered By: Elier Jackson on 02-05-2023 Erythrocyte distribution width (RBC) [Ratio] 15.9 % High 11.9-15.3 [facility] Comment on above: Performed By: #### H EPATIC, LIPASE, BMP, CBC #### [place] [address] [place] Erythrocytes [#/volume] in B lood by Automated countOrdered By: Elier Jackson on 02-05-2023 RBC (Bld) [#/Vol] 4.78 10*6/uL Normal 3.60-5.00 [facility] Comment on above: Performed By: #### H EPATIC, LIPASE, BMP, CBC #### [address] Glucose [Mass/volume] in Ser um or [...] the diagnosis of Diabetes Mellitus. Result Comment: [place] om Glucose Reference Range is dependent on time and content of last meal. Glucose of more than 200 mg/dL in a nonstressed, ambulatory subject supports the diagnosis of Diabetes Mellitus. ADA recommended reference range Performed By: #### H CGQNT #### [address] HCG,Qualitative Serumon 01-12 HCG,Qualitative Serum Negative Normal [facility] Comment on above: Result Comment: PERF ORMED BY: [place] [address] PATHOLOGIST [employer] MANAGER FARNAZ ZULETA M.D. Performed By: #### U HCG, ADDONUAPLUS #### [address] HCG,Quantitativeon 3 HCG,Quantitative < 0.60 Normal [facility] Comment on above: Result Comment: Appr oximate Approximate hCG Gestational Age Range (mIU/ml) (weeks) 0.2-1 5-50 1-2 50-500 2-3 100-5,000 3-4 500-10,000 4-5 1,000-50,000 5-6 10,000-100,000 6-8 15,000-200,000 8-12 10,000-100,000 PERFORMED BY: [place] [address] PATHOLOGIST [employer] MANAGER FARNAZ ZULETA M.D. Performed By: #### H CGQNT #### [address] Hematocrit [Volume Fraction] of Blood by Automated countOrdered By: Elier Jackson on 02-05-2023 Hematocrit (Bld) [Volume fraction] 37.3 % Normal 34.0-46.4 [facility] Comment on above: Performed By: #### H EPATIC, LIPASE, BMP, CBC #### [address] Hemoglobin [Mass/volume] in BloodOrdered By: Elier Jackson on 02-05-2023 Hemoglobin (Bld) [Mass/Vol] 11.8 g/dL Normal 11.8-15.4 [facility] Comment on above: Performed By: #### H EPATIC, LIPASE, BMP, CBC #### [address] Hepatic Panelon 02-05-2023 Albumin [Mass/Vol] 4.2 g/dL Normal 3.5-5.7 [facility] Comment on above: Performed By: #### H CGQNT #### [address] Bilirubin,Indirect 0.2 mg/dL Normal [facility] Comment on above: Performed By: #### H CGQNT #### [address] Bilirubin.indirect [Mass/Vol] 0.10 mg/dL Normal 0.03-0.18 [facility] Comment on above: Performed By: #### H CGQNT #### [address] Leukocytes [#/volume] correc flo for nucleated erythrocytes in Blood by Automated counOrdered By: Elier Jackson on 02-05-2023 WBC corrected for nucl RBC Auto (Bld) [#/Vol] 8.1 10*3/uL 3.8-11.6 [facility] Leukocytes [#/volume] in Blo od by Automated countOrdered By: Elier Jackson on 02-05-2023 WBC (Bld) [#/Vol] 8.1 10*3/uL Normal 3.8-11.6 [facility] Comment on above: Performed By: #### H EPATIC, LIPASE, BMP, CBC #### [facility] [address] [place] [address] Lipase [Enzymatic activity/v olume] in Serum or PlasmaOrdered By: Elier Jackson on 02-05-2023 Lipase [Catalytic activity/Vol] 40.0 U/L Normal 11.0-82.0 [facility] Comment on above: Result Comment: PERF ORMED BY: [place] [address] PATHOLOGIST [employer] MANAGER FARNAZ ZULETA M.D. Performed By: #### H CGQNT #### [address] Lymphocytes [#/volume] in Bl ood by Automated countOrdered By: Elier Jackson on 02-05-2023 Lymphocytes (Bld) [#/Vol] 3.6 10*3/uL Normal 1.00-4.8 [facility] Comment on above: Performed By: #### H EPATIC, LIPASE, BMP, CBC #### [facility] [address] Lymphocytes/100 leukocytes i n Blood by Automated countOrdered By: Elier Jackson on 02-05-2023 Lymphocytes/100 WBC (Bld) 44.3 % Normal . [facility] Comment on above: Performed By: #### H EPATIC, LIPASE, BMP, CBC #### [facility] [address] [place] [address] MCH [Entitic mass] by Automa flo countOrdered By: Elier Jackson on 02-05-2023 MCH (RBC) [Entitic mass] 24.8 pg Normal 24.7-34.3 [facility] Comment on above: Performed By: #### H EPATIC, LIPASE, BMP, CBC #### [facility] [address] [place] [address] MCHC Auto (RBC) [Mass/Vol]Or dered By: Elier Jackson on 02-05-2023 MCHC (RBC) [Mass/Vol] 31.8 g/dL 32.0-35.0 [facility] MCV [Entitic volume] by Auto mated countOrdered By: Elier Jackson on 02-05-2023 MCV (RBC) [Entitic vol] 78.1 fL Low 80-100 [facility] Comment on above: Performed By: #### H EPATIC, LIPASE, BMP, CBC #### [facility] [address] [place] [address] Monocyte distribution width [Entitic volume] in Blood by AutomatedOrdered By: Elier Jackson on 02-05-2023 Monocyte distribution width Auto (Bld) [Entitic vol] 17.33 % 0.00-20.00 [facility] Neutrophils [#/volume] in Bl ood by Automated countOrdered By: Elier Jackson on 02-05-2023 Neutrophils (Bld) [#/Vol] 3.6 10*3/uL Normal 1.8-7.7 [facility] Comment on above: Performed By: #### H EPATIC, LIPASE, BMP, CBC #### [facility] [address] [place] [address] No Panel InformationOrdered By: Elier Jackson on 02-05-2023 Estimated GFR (CKD-EPI) > 60.0 mL/Min [facility] Creatinine Clearance (Chem 115.62 [facility] Nucleated erythrocytes [Pres ence] in Blood by Automated countOrdered By: Elier Jackson on 02-05-2023 Nucleated RBC Auto Ql (Bld) 0.1 /100{WBC} 0-0.5 [facility] Platelet mean volume [Entiti c volume] in Blood by Automated countOrdered By: Elier Jackson on 02-05-2023 Platelet mean volume (Bld) [Entitic vol] 8.0 fL Normal 6.3-10.7 [facility] Comment on above: Performed By: #### H EPATIC, LIPASE, BMP, CBC #### [facility] [address] [place] [address] Platelets [#/volume] in Bloo d by Automated countOrdered By: Elier Jackson on 02-05-2023 Platelets (Bld) [#/Vol] 398 10*3/uL Normal 150-450 [facility] Comment on above: Performed By: #### H EPATIC, LIPASE, BMP, CBC #### [facility] [address] [place] [address] [place] Potassium [Moles/volume] in Serum or PlasmaOrdered By: Elier Jackson on 02-05-2023 Potassium [Moles/Vol] 3.4 mmol/L Low 3.5-5.1 [facility] Comment on above: Performed By: #### H CGQNT #### [address] Protein [Mass/volume] in Ser um or PlasmaOrdered By: Elier Jackson on 02-05-2023 Protein [Mass/Vol] 7.2 g/dL Normal 6.4-8.9 [facility] Comment on above: Performed By: #### H CGQNT #### [facility] [address] Serum globulin measurement b y calculation (mass/volume)Ordered By: Elier Jackson on 02-05-2023 Globulin (S) [Mass/Vol] 3.0 g/dL Normal [facility] Comment on above: Performed By: #### H CGQNT #### [address] Serum or plasma albumin/glob ulin mass ratioOrdered By: Elier Jackson on 02-05-2023 Albumin/Globulin [Mass ratio] 1.4 {ratio} Normal [facility] Comment on above: Performed By: #### H CGQNT #### [address] Serum or plasma anion gap de terminationOrdered By: Elier Jackson on 02-05-2023 Anion gap [Moles/Vol] 11.9 mmol/L Normal 6.0-15.0 [facility] Comment on above: Performed By: #### H CGQNT #### [address] Serum or plasma non-glucuron idated bilirubin measurement (mass/volume)Ordered By: Elier Jackson on 02-05-2023 Bilirubin.indirect [Mass/Vol] 0.2 mg/dL [facility] Sodium [Moles/volume] in Ser um or PlasmaOrdered By: Elier Jackson on 02-05-2023 Sodium [Moles/Vol] 137 mmol/L Normal 136-145 [facility] Comment on above: Performed By: #### H CGQNT #### [address] Urea nitrogen [Mass/volume] in Serum or PlasmaOrdered By: Elier Jackson on 02-05-2023 Urea nitrogen [Mass/Vol] 6 mg/dL Low 7-25 [facility] Comment on above: Performed By: #### H CGQNT #### [address] GENITAL CULTUREon 08-01-2022 Genital Culture, Routine Final report Abnormal [facility] Comment on above: Result Comment: Spec imen stability note: A swab transport (ie., ESwab, Amies agar gel) received by the lab more than 24 hours after collection may result in reduced recovery of Neisseria gonorrhoeae (GC). (This is informational only and may not apply to this specimen.) Performed By: #### C XGENIT #### [facility] [address] [place] [address] Dr. Rod Ramirez Result 1 Comment Abnormal [facility] Comment on [...] (CLSI) Performed By: #### C XGENIT #### [facility] [address] [place] [address] Dr. Rod Ramirez Result 2 Comment Normal [facility] Comment on above: Result Comment: Rout ine genital rashid. Light growth Performed By: #### C XGENIT #### [facility] [address] [place] [address] Dr. Rod Ramirez CBC AUTO DIFFon 07-28-2022 BASO # 0.0 103/ul Normal 0.0-0.1 [facility] Comment on above: Performed By: #### C BC #### [facility] [address] [place] [address] Dr. Rod Ramirez Basophils/100 WBC (Bld) 0.4 % Normal 0.2-2.0 [facility] Comment on above: Performed By: #### C BC #### [facility] [address] [place] [address] Dr. Rod Ramirez EO # 0.1 103/ul Normal 0.0-0.7 [facility] Comment on above: Performed By: #### C BC #### [facility] [address] [place] [address] Dr. Rod Ramirez Eosinophils/100 WBC (Bld) 1.5 % Normal 0.9-7.0 [facility] Comment on above: Performed By: #### C BC #### [facility] [address] [place] [address] Dr. Rod Ramirez Erythrocyte distribution width (RBC) [Ratio] 12.9 % Normal 11.0-15.0 [facility] Comment on above: Performed By: #### C BC #### [facility] [address] [place] [address] Dr. Rod Ramirez Hematocrit (Bld) [Volume fraction] 40.9 % Normal 36.0-48.0 [facility] Comment on above: Performed By: #### C BC #### [facility] [address] [place] [address] Dr. Rod Ramirez Hemoglobin (Bld) [Mass/Vol] 13.7 g/dL Normal 12.0-16.0 [facility] Comment on above: Performed By: #### C BC #### [facility] [address] [place] [address] Dr. Rod Ramirez IG # 0.02 10e3/ul Normal 0.00-0.03 [facility] Comment on above: Performed By: #### C BC #### [facility] [address] [place] [address] Dr. Rod Ramirez IG % 0.3 % Normal 0.0-0.5 [facility] Comment on above: Performed By: #### C BC #### [facility] [address] [place] [address] Dr. Rod Ramirez LYMPH # 1.6 103/ul Normal 1.2-3.8 [facility] Comment on above: Performed By: #### C BC #### [facility] [address] [place] [address] Dr. Rod Ramirez Lymphocytes/100 WBC (Bld) 23.6 % Normal 20.5-60.0 [facility] Comment on above: Performed By: #### C BC #### [facility] [address] [place] [address] Dr. Rod Ramirez MANUAL DIFF REQ NO Normal [facility] Comment on above: Performed By: #### C BC #### [facility] [address] [place] [address] Dr. Rod Ramirez MCH (RBC) [Entitic mass] 27.7 pg Normal 26.7-34.0 [facility] Comment on above: Performed By: #### C BC #### [facility] [address] [place] [address] Dr. Rod Ramirez MCHC (RBC) [Mass/Vol] 33.5 g/dL Normal 29.9-35.2 [facility] Comment on above: Performed By: #### C BC #### [facility] [address] [place] [address] Dr. Rod Ramirez MCV (RBC) [Entitic vol] 82.6 fL Normal 81.0-99.0 [facility] Comment on above: Performed By: #### C BC #### [facility] [address] [place] [address] Dr. Rod Ramirez MONO # 0.4 103/ul Normal 0.3-0.8 [facility] Comment on above: Performed By: #### C BC #### [facility] [address] [place] [address] Dr. Rod Ramirez Monocytes/100 WBC (Bld) 6.4 % Normal 1.7-12.0 [facility] Comment on above: Performed By: #### C BC #### [facility] [address] [place] [address] Dr. Rod Ramirez NEUT # 4.6 103/ul Normal 1.4-6.5 [facility] Comment on above: Performed By: #### C BC #### [facility] [address] [place] [address] Dr. Rod Ramirez Neutrophils/100 WBC (Bld) 67.8 % Normal 43.0-75.0 [facility] Comment on above: Performed By: #### C BC #### [facility] [address] [place] [address] Dr. Rod Ramirez Platelet mean volume (Bld) [Entitic vol] 9.4 fL Critically low 9.5-13.5 [facility] Comment on above: Performed By: #### C BC #### [facility] [address] [place] [address] Dr. Rod Ramirez PLT 439 103/ul Normal 150-450 [facility] Comment on above: Performed By: #### C BC #### [facility] [address] [place] [address] Dr. Rod Ramirez RBC 4.95 106/ul Normal 4.20-5.40 [facility] Comment on above: Performed By: #### C BC #### [facility] [address] [place] [address] Dr. Rod Ramirez WBC 6.7 103/ul Normal 4.0-11.0 [facility] Comment on above: Performed By: #### C BC #### [facility] [address] [place] [address] Dr. Rod Ramirez PREG HCG QUALon 07-28-2022 , QUAL Negative Normal NEGATIVE [facility] Comment on above: Performed By: #### P REG #### [facility] [address] [place] [address] Dr. Rod Ramirez PROF CHEM 8 (BAS METB)on Anion gap [Moles/Vol] 15.5 mmol/L Normal [facility] Comment on above: Performed By: #### B MP #### [facility] [address] [place] [address] Dr. Rod Ramirez Calcium [Mass/Vol] 9.0 mg/dL Normal 8.5-10.1 [facility] Comment on above: Performed By: #### B MP #### [facility] [address] [place] [address] Dr. Rod Ramirez Chloride [Moles/Vol] 103 mmol/L Normal 98-107 [facility] Comment on above: Performed By: #### B MP #### [facility] [address] [place] [address] Dr. Rod Ramirez CO2 [Moles/Vol] 23.9 mmol/L Normal 21.0-32.0 [facility] Comment on above: Performed By: #### B MP #### [facility] [address] [address] [address] Rod Ramirez Creatinine [Mass/Vol] 0.79 mg/dL Normal 0.55-1.02 [facility] Comment on above: Performed By: #### B MP #### [facility] [address] [address] [address] Rod Ramirez EGFR-AF EAST [place] >60 Normal >=60 [facility] Comment on above: Performed By: #### B MP #### [facility] [address] [address] [address] Rod Ramirez EGFR-NON AF [place] >60 Normal >=60 [facility] Comment on above: Performed By: #### B MP #### [facility] [address] [address] [address] Rod Ramirez Glucose [Mass/Vol] 108 mg/dL Critically high 74-106 [facility] Comment on above: Performed By: #### B MP #### [facility] [address] [address] [address] Rod Ramirez Potassium [Moles/Vol] 3.4 mmol/L Critically low 3.5-5.1 [facility] Comment on above: Performed By: #### B MP #### [facility] [address] [address] [address] Rod Ramirez Sodium [Moles/Vol] 139 mmol/L Normal 136-145 [facility] Comment on above: Performed By: #### B MP #### [facility] [address] [address] [address] Rod Ramirez Urea nitrogen [Mass/Vol] 7.0 mg/dL Normal 7.0-18.0 [facility] Comment on above: Performed By: #### B MP #### [facility] [address] [address] [address] Rod Ramirez Urea nitrogen/Creatinine [Mass ratio] 8.9 mg/mg Normal [facility] Comment on above: Performed By: #### B MP #### [facility] [address] [address] [address] Rod Ramirez US PELVIS TRANSVAGon 023 [...] AUBREY BURKS Date: 2022-07-28 07:46 Normal [facility] WET PREPon 07-28-2022 CLUE CELLS NONE SEEN Normal NONE SEEN [facility] Comment on above: Performed By: #### W P #### [facility] [address] [place] [address] Dr. Rod Ramirez FUNGAL ELEMENTS NONE SEEN Normal NONE SEEN [facility] Comment on above: Performed By: #### W P #### [facility] [address] [place] [address] Dr. Rod Ramirez RBC -WET PREP RARE Abnormal NONE SEEN [facility] Comment on above: Performed By: #### W P #### [facility] [address] [place] [address] Dr. Rod Ramirez TRICHOMONAS NONE SEEN Normal NONE SEEN [facility] Comment on above: Performed By: #### W P #### [facility] [address] [place] [address] Dr. Rod Ramirez WBC- WET PREP RARE Abnormal NONE SEEN [facility] Comment on above: Performed By: #### W P #### [facility] [address], [place] [address] Dr[address] Rod Ramirez WET PREP BACTERIA NONE SEEN Normal NONE SEEN [facility] Comment on above: Performed By: #### W P #### [facility] [address], [place] [address] Dr. Rod Morales 04-30-2022 CNPN Telephone (HEMASA) ANTONIA NOYOLA ([id number]) 1985 F Date Time Provider Department 04/30/22 [...] Fully Assessed Reason for Visit: Lab Orders [6128] Primary Visit Diagnosis:Iron deficiency anemia due to chronic blood loss [D50.0] Order(s):COMP METABOLIC PANEL [SQCMP] Order #: [id number] FUTURE Prescriptions as of 05/03/2022 - ALPRAZolam [...] Status:Closed by MADYSON NI on 05/03/22 Normal [facility] Anisocytosis LM Ql (Bld)Orde red By: Yevgeniy Cabrera on 04-28-2022 Anisocytosis Ql (Bld) Marked [facility] Automated erythrocytes count in urine sediment (number/area)Ordered By: Yevgeniy aCbrera on 04-28-2022 RBC Auto (Urine sed) [#/Area] None seen [HPF] 0-4 [facility] Automated leukocytes count i n urine sediment (number/area)Ordered By: Yevgeniy Cabrera on 04-28-2022 WBC Auto (Urine sed) [#/Area] 3-4 [HPF] 0-4 [facility] Basophils Auto (Bld) [#/Vol] Ordered By: Yevgeniy Cabrera on 04-28-2022 Basophils (Bld) [#/Vol] 0.1 10*3/uL 0.0-0.2 [facility] Basophils/100 WBC Auto (Bld) Ordered By: Yevgeniy Cabrera on 04-28-2022 Basophils/100 WBC (Bld) 1.0 % . [facility] Bilirubin Test strip Ql (U)O rdered By: Yevgeniy Cabrera on 04-28-2022 Bilirubin Ql (U) Negative Negative [facility] Body fluid albumin measureme nt (mass/volume)Ordered By: Yevgeniy Cabrera on 04-28-2022 Albumin (Body fld) [Mass/Vol] 3.8 g/dL 3.2-5.5 [facility] Color Auto (U)Ordered By: Marcus Cabrera on 04-28-2022 Color (U) Yellow Yellow [facility] Creatinine and Glomerular fi ltration rate.predicted panel (S/P/Bld)Ordered By: Yevgeniy Cabrera on 04-28-2022 Creatinine [Mass/Vol] 0.62 mg/dL 0.44-1.03 [facility] Eosinophils Auto (Bld) [#/Vo l]Ordered By: Yevgeniy Cabrera on 04-28-2022 Eosinophils (Bld) [#/Vol] 0.1 10*3/uL 0.0-0.45 [facility] Eosinophils/100 WBC Auto (Bl d)Ordered By: Yevgeniy Cabrera on 04-28-2022 Eosinophils/100 WBC (Bld) 1.0 % . [facility] Erythrocyte distribution wid th Auto (RBC) [Ratio]Ordered By: Yevgeniy Cabrera on 04-28-2022 Erythrocyte distribution width (RBC) [Ratio] 27.1 % 11.9-15.3 [facility] Estimated glomerular filtrat ion rate (GFR) non- AmericanOrdered By: Yevgeniy Cabrera on 04-28-2022 GFR/1.73 sq M.predicted among non-blacks MDRD (S/P/Bld) [Vol rate/Area] > 60 mL/Min [facility] Globulin Calc (S) [Mass/Vol] Ordered By: Yevgeniy Cabrera on 04-28-2022 Globulin (S) [Mass/Vol] 3.1 g/dL [facility] HCG ( test) IA.rapi d Ql (U)Ordered By: Yevgeniy Cabrera on 04-28-2022 HCG ( test) Ql (U) Negative [facility] Hematocrit Auto (Bld) [Volum e fraction]Ordered By: Yevgeniy Cabrera on 04-28-2022 Hematocrit (Bld) [Volume fraction] 39.4 % 34.0-46.4 [facility] Hemoglobin [Mass/volume] in BloodOrdered By: Yevgeniy Cabrera on 04-28-2022 Hemoglobin (Bld) [Mass/Vol] 12.3 g/dL 11.8-15.4 [facility] Hypochromia LM Ql (Bld)Order ed By: Yevgeniy Cabrera on 04-28-2022 Hypochromia Ql (Bld) Slight [facility] Ketones Auto test strip (U) [Mass/Vol]Ordered By: Yevgeniy Cabrera on 04-28-2022 Ketones (U) [Mass/Vol] Negative Negative [facility] - Hematology and Cell countsOrdered By: Yevgeniy Cabrera on 04-28-2022 Nucleated RBC/100 WBC (Bld) [Ratio] 0.0 % 0-0.5 [facility] - UrinalysisOrder ed By: Yevgeniy Cabrera on 04-28-2022 Hyaline casts LM Ql (Urine sed) None seen [LPF] 0-8 [facility] Leukocytes [#/volume] in Blo od by Automated countOrdered By: Yevgeniy Cabrera on 04-28-2022 WBC (Bld) [#/Vol] 7.9 10*3/uL 4.5-11.0 [facility] Lymphocytes Auto (Bld) [#/Vo l]Ordered By: Yevgeniy Cabrera on 04-28-2022 Lymphocytes (Bld) [#/Vol] 2.3 10*3/uL 1.00-4.8 [facility] Lymphocytes/100 WBC Auto (Bl d)Ordered By: Yevgeniy Cabrera on 04-28-2022 Lymphocytes/100 WBC (Bld) 28.9 % . [facility] MCH Auto (RBC) [Entitic mass ]Ordered By: Yevgeniy Cabrera on 04-28-2022 MCH (RBC) [Entitic mass] 23.3 pg 24.7-34.3 [facility] MCHC Auto (RBC) [Mass/Vol]Or dered By: Yevgeniy Cabrera on 04-28-2022 MCHC (RBC) [Mass/Vol] 31.3 g/dL 32.0-35.0 [facility] MCV Auto (RBC) [Entitic vol] Ordered By: Yevgeniy Cabrera on 04-28-2022 MCV (RBC) [Entitic vol] 74.5 fL 80-100 [facility] Monocytes Auto (Bld) [#/Vol] Ordered By: Yevgeniy Cabrera on 04-28-2022 Monocytes (Bld) [#/Vol] 0.4 10*3/uL 0.0-0.8 [facility] Monocytes/100 WBC Auto (Bld) Ordered By: Yevgeniy Cabrera on 04-28-2022 Monocytes/100 WBC (Bld) 4.5 % . [facility] Neutrophils Auto (Bld) [#/Vo l]Ordered By: Yevgeniy Cabrera on 04-28-2022 Neutrophils (Bld) [#/Vol] 5.1 10*3/uL 1.8-7.7 [facility] Neutrophils/100 WBC Auto (Bl d)Ordered By: Yevgeniy Cabrera on 04-28-2022 Neutrophils/100 WBC (Bld) 64.6 % . [facility] Nitrite Test strip Ql (U)Ord ered By: Yevgeniy Cabrera on 04-28-2022 Nitrite Ql (U) Negative Negative [facility] [facility] No Panel InformationOrdered By: Yevgeniy Cabrera on 04-28-2022 Estimated GFR () > 60 mL/Min [facility] Comment on above: GFR estimated refere nce range: According to KDOQI guidelines, <60 ml/min/1.73m2 is sufficient to diagnose a patient with chronic kidney disease. Pharmacy Creatinine Clearance (Chem 132.36 [facility] Slides for Pathologist Review Ordered path review [facility] Ovalocyte detectionOrdered B y: Yevgeniy Cabrera on 04-28-2022 Ovalocytes LM Ql (Bld) Moderate [facility] Platelet adequacy [Presence] in Blood by Light microscopyOrdered By: Yevgeniy Cabrera on 04-28-2022 Platelets LM Ql (Bld) Normal Normal [facility] Platelet mean volume Auto (B ld) [Entitic vol]Ordered By: Yevgeniy Cabrera on 04-28-2022 Platelet mean volume (Bld) [Entitic vol] 7.4 fL 6.3-10.7 [facility] Platelet morphology finding [Identifier] in BloodOrdered By: Yevgeniy Cabrera on 04-28-2022 Platelet morphology finding Nom (Bld) Normal Normal [facility] Platelets Auto (Bld) [#/Vol] Ordered By: Yevgeniy Cabrera on 04-28-2022 Platelets (Bld) [#/Vol] 329 10*3/uL 150-450 [facility] Poikilocytosis [Presence] in Blood by Light microscopyOrdered By: Yevgeniy Cabrera on 04-28-2022 Poikilocytosis LM Ql (Bld) Moderate [facility] Polychromasia [Presence] in Blood by Light microscopyOrdered By: Yevgeniy Cabrera on 04-28-2022 Polychromasia LM Ql (Bld) Slight [facility] Protein Auto test strip (U) [Mass/Vol]Ordered By: Yevgeniy Cabrera on 04-28-2022 Protein (U) [Mass/Vol] Negative Negative Fi [facility] Protein [Mass/volume] in Ser um or PlasmaOrdered By: Yevgeniy Cabrera on 04-28-2022 Protein [Mass/Vol] 6.9 g/dL 6.1-7.9 [facility] RBC Auto (Bld) [#/Vol]Ordere d By: Yevgeniy Cabrera on 04-28-2022 RBC (Bld) [#/Vol] 5.29 10*6/uL 3.60-5.00 [facility] RBC morphologyOrdered By: Marcus oli Rick on 04-28-2022 RBC morphology finding Nom (Bld) N/A [facility] Serum or plasma alanine syed otransferase measurement without P-5'-P (enzymatic activiOrdered By: Yevgeniy Cabrera on 04-28-2022 ALT No additional P-5'-P [Catalytic activity/Vol] 43 U/L 10-60 [facility] Serum or plasma albumin/glob ulin mass ratioOrdered By: Yevgeniy Cabrera on 04-28-2022 Albumin/Globulin [Mass ratio] 1.2 {ratio} [facility] Serum or plasma alkaline zeeshan sphatase measurement (enzymatic activity/volume)Ordered By: Yevgeniy Cabrera on 04-28-2022 ALP [Catalytic activity/Vol] 65 U/L 32-92 [facility] Serum or plasma anion gap de terminationOrdered By: Yevgeniy Cabrera on 04-28-2022 Anion gap [Moles/Vol] 14.6 mmol/L 6.0-15.0 [facility] Serum or plasma aspartate am inotransferase measurement (enzymatic activity/volume)Ordered By: Yevgeniy Cabrera on 04-28-2022 AST [Catalytic activity/Vol] 26 U/L 10-42 [facility] Serum or plasma calcium donaldo urement (mass/volume)Ordered By: Yevgeniy Cabrera on 04-28-2022 Calcium [Mass/Vol] 9.3 mg/dL 8.2-10.2 [facility] Serum or plasma chloride claudia surement (moles/volume)Ordered By: Yevgeniy Cabrera on 04-28-2022 Chloride [Moles/Vol] 105 mmol/L 95-114 [facility] Serum or plasma glucose donaldo urement [...] on 04-28-2022 Potassium [Moles/Vol] 3.7 mmol/L 3.5-5.1 [facility] Serum or plasma sodium measu rement (moles/volume)Ordered By: Yevgeniy Cabrera on 04-28-2022 Sodium [Moles/Vol] 137 mmol/L 136-146 [facility] Serum or plasma total biliru bin measurement (mass/volume)Ordered By: Yevgeniy Cabrera on 04-28-2022 Bilirubin [Mass/Vol] 0.5 mg/dL 0.3-1.2 [facility] Serum or plasma total carbon dioxide measurement (moles/volume)Ordered By: Yevgeniy Cabrera on 04-28-2022 CO2 [Moles/Vol] 21.1 mmol/L 22.0-30.0 [facility] Serum or plasma urea nitroge n measurement (mass/volume)Ordered By: Yevgeniy Cabrera on 04-28-2022 Urea nitrogen [Mass/Vol] 5 mg/dL 9-23 [facility] Specific gravity Auto test s trip (U) [Rel density]Ordered By: Yevgeniy Cabrera on 04-28-2022 Specific gravity (U) [Rel density] 1.005 1.001-1.030 [facility] Squamous epithelial cells de tection in urine sediment by light microscopyOrdered By: Yevgeniy Cabrera on 04-28-2022 Epithelial cells.squamous LM Ql (Urine sed) 0-1 [HPF] 0-2 [facility] Teardrop cell detectionOrder ed By: Yevgeniy Cabrera on 04-28-2022 Dacrocytes LM Ql (Bld) Slight [facility] Urine bacteria detection by automated methodOrdered By: Yevgeniy Cabrera on 04-28-2022 Bacteria Auto Ql (U) None seen None Seen [facility] Urine clarity by refractomet ry automatedOrdered By: Yevgeniy Cabrera on 04-28-2022 Clarity Refractometry automated (U) Cloudy Clear [facility] Urine glucose measurement by automated test strip (mass/volume)Ordered By: Yevgeniy Cabrera on 04-28-2022 Glucose Auto test strip (U) [Mass/Vol] Normal mg/dL Normal [facility] Urine hemoglobin detection b y automated test stripOrdered By: Yevgeniy Cabrera on 04-28-2022 Hemoglobin Auto test strip Ql (U) Negative Negative [facility] Urine leukocyte esterase det ection by automated test stripOrdered By: Yevgeniy Cabrera on 04-28-2022 Leukocyte esterase Auto test strip Ql (U) 1+ Negative [facility] Urobilinogen Auto test strip (U) [Mass/Vol]Ordered By: Yevgeniy Cabrera on 04-28-2022 Urobilinogen (U) [Mass/Vol] Normal mg/dL Normal [facility] pH Auto test strip (U)Ordere d By: Yevgeniy Cabrera on 04-28-2022 pH (U) 6.5 [pH] 5.0-9.0 [facility] ALLIED HEALTHon 04-09-2022 ALLIED HEALTH HNO ID: [id number] Author: Donald Villegas Service: ? Author Type: [...] then. SIGNATURE: Donald Villegas Therapist PATIENT NAME: Antonia oNyola DATE: April 09, 2022 TIME: 2:21 PM PAGER/CONTACT #: Angela [facility] Andrew 03-19-2022 FRIDA Telephone (NCCAP) ANTONIA NOYOLA Regino ([id number]) 1985 F Date Time Provider Department 03/19/22 [...] Date Reviewed: 03/10/2022 Reviewed by: Madyson Ni APRN.HEAD OF SALES [employer]OMOTION - Fully Assessed Reason for Visit: No [...] Encounter Status:Closed by CORBIN ROSE on 03/19/22 [facility] CNPN Telephone (HEMTSA) ANTONIA NOYOLA ([id number]) 1985 F Date Time Provider Department 03/19/22 FINANCIAL NAVIGATOR JOHNY HOYOS During your visit today, we recorded the following information about you: Sparkle Chicas Deja [facility] 03/19/2022 4:48 PM Signed 1st report of treatment-Non oncology regimen (Venofer) No FA available for this treatment at this time. Allergies As of Date: 03/19/2022 Noted Allergy Reaction MORPHINE 06/20/2018 14 - Other: See Comments Comments: Spasms Date Reviewed: 03/10/2022 Reviewed by: Madyson Ni APRN.[employer] SAL[employer] - Fully Assessed Reason for Visit: Benefits Investigation [1110] Prescriptions as of 03/19/2022 - ALPRAZolam (XANAX) [...] of iron [K90.9] 10/27/2020 Encounter Status:Closed by [facility], SPARKLE Chicas on 03/19/22 [facility] 03-15-2022 CNPN Telephone (HEMBRITTANY) ANTONIA NOYOLA ([id number]) 1985 F Date Time Provider Department 03/15/22 SHAORN SAAVEDRA During your visit today, we recorded the following information about you: MARY Narvaez 03/15/2022 12:06 PM Signed Patient appears on the First Time Treatment List for a non-oncology treatment. No psychosocial assessment is indicated. MARINA Narvaez-S Allergies As of Date: 03/15/2022 Noted Allergy Reaction MORPHINE 06/20/2018 14 - Other: See Comments Comments: Spasms Date Reviewed: 03/10/2022 Reviewed by: Madyson Ni APRN.[employer] SAL[employer]ION - Fully Assessed Reason for Visit: Social [...] Status:Closed by SHARON SAAVEDRA on 03/15/22 Normal [facility] CBC W Auto Differential pane l (Bld)on 03-10-2022 Basophils (Bld) [#/Vol] 0.05 10*3/uL Normal <0.11 [facility] Comment on above: Order Comment: Speci men Type: BLOOD SPECIMEN Ordering Facility: [facility] Address: [address] [place] [address] Performed By: #### 5 7021-8 #### [facility] CLIA [id number] [address] [place] [address] 83524 Basophils/100 WBC (Bld) 0.8 % Normal C [facility] Comment on above: Order Comment: Speci men Type: BLOOD SPECIMEN Ordering Facility: [facility] Address: [address] [place] [address] Performed By: #### 5 7021-8 #### [facility] CLIA [id number] [address] [place] [address]239 Differential cell count method Nom (Bld) Auto Normal [facility] Comment on above: Order Comment: Speci men Type: BLOOD SPECIMEN Ordering Facility: [facility] Address: [address] [place] [address] Performed By: #### 5 7021-8 #### [facility] CLIA [id number] [address] [place] [address] 58344 Eosinophils (Bld) [#/Vol] 0.15 10*3/uL Normal <0.46 [facility] Comment on above: Order Comment: Speci men Type: BLOOD SPECIMEN Ordering Facility: [facility] Address: [address] [place] [address] Performed By: #### 5 7021-8 #### [facility] CLIA [id number] [address] [place] [address] 36397 Eosinophils/100 WBC (Bld) 2.3 % Normal [facility] Comment on above: Order Comment: Speci men Type: BLOOD SPECIMEN Ordering Facility: [facility] Address: [address] [place] [address] Performed By: #### 5 7021-8 #### [facility] CLIA [id number] [address] [place] [address] 38843 Erythrocyte distribution width (RBC) [Ratio] 17.4 % High 11.5-15.0 [facility] Comment on above: Order Comment: Speci men Type: BLOOD SPECIMEN Ordering Facility: [facility] Address: [address] [place] [address] Performed By: #### 5 7021-8 #### [facility] CLIA [id number] [address] [place] [address] 92478 Hematocrit (Bld) [Volume fraction] 29.4 % Low 36.0-46.0 [facility] Comment on above: Order Comment: Speci men Type: BLOOD SPECIMEN Ordering Facility: [facility] Address: [address] [place] [address] Performed By: #### 5 7021-8 #### [facility] CLIA [id number] [address] [place] [address] 49706 Hemoglobin (Bld) [Mass/Vol] 8.5 g/dL Low 11.5-15.5 [facility] Comment on above: Order Comment: Speci men Type: BLOOD SPECIMEN Ordering Facility: [facility] Address: [address] [place] [address] Performed By: #### 5 7021-8 #### [facility] CLIA [id number] [address] [place], [place] [address] IMMATURE GRAN % 0.3 % Normal [facility] Comment on above: Order Comment: Speci men Type: BLOOD SPECIMEN Ordering Facility: [facility] Address: [address] [place] [address] Performed By: #### 5 7021-8 #### [facility] CLIA [id number] [address] [place] [address] 16219 IMMATURE GRAN ABS <0.03 Normal <0.10 [facility] Comment on above: Order Comment: Speci men Type: BLOOD SPECIMEN Ordering Facility: [facility] Address: [address] [place] [address] Performed By: #### 5 7021-8 #### [facility] CLIA [id number] [address] [place] [address] 80535 Lymphocytes (Bld) [#/Vol] 3.62 10*3/uL Normal 1.00-4.00 [facility] Comment on above: Order Comment: Speci men Type: BLOOD SPECIMEN Ordering Facility: [facility] Address: [address] [place] [address] Performed By: #### 5 7021-8 #### [facility] CLIA [id number] [address] [place] [address] 10285 Lymphocytes/100 WBC (Bld) 54.8 % Normal [facility] Comment on above: Order Comment: Speci men Type: BLOOD SPECIMEN Ordering Facility: [facility] Address: [address] [place] [address] Performed By: #### 5 7021-8 #### [facility] CLIA [id number] [address] [place] [address] 70825 MCH (RBC) [Entitic mass] 20.3 pg Low 26.0-34.0 [facility] Comment on above: Order Comment: Speci men Type: BLOOD SPECIMEN Ordering Facility: [facility] Address: [address] [place] [address] Performed By: #### 5 7021-8 #### [facility] CLIA [id number] [address] [place] [address] 14728 MCHC (RBC) [Mass/Vol] 28.9 g/dL Low 30.5-36.0 [facility] Comment on above: Order Comment: Speci men Type: BLOOD SPECIMEN Ordering Facility: [facility] Address: [address] [place] [address] Performed By: #### 5 7021-8 #### [facility] CLIA [id number] [address] [place] [address] 66953 MCV (RBC) [Entitic vol] 70.3 fL Low 80.0-100.0 C [facility] Comment on above: Order Comment: Speci men Type: BLOOD SPECIMEN Ordering Facility: [facility] Address: [address] [place] [address] Performed By: #### 5 7021-8 #### [facility] CLIA [id number] [address] [place] [address] 47121 Monocytes (Bld) [#/Vol] 0.38 10*3/uL Normal <0.87 [facility] Comment on above: Order Comment: Speci men Type: BLOOD SPECIMEN Ordering Facility: [facility] Address: [address] [place], [place] [address] Performed By: #### 5 7021-8 #### [facility] CLIA [id number] [address] [place] [address] 52644 Monocytes/100 WBC (Bld) 5.7 % Normal [facility] Comment on above: Order Comment: Speci men Type: BLOOD SPECIMEN Ordering Facility: [facility] Address: [address] [place], [place] [address] Performed By: #### 5 7021-8 #### [facility] CLIA [id number] [address] [place] [address] 69581 Neutrophils (Bld) [#/Vol] 2.39 10*3/uL Normal 1.45-7.50 [facility] Comment on above: Order Comment: Speci men Type: BLOOD SPECIMEN Ordering Facility: [facility] Address: [address] [place], [place] [address] Performed By: #### 5 7021-8 #### [facility] CLIA [id number] [address] [place] [address] 66535 Neutrophils/100 WBC (Bld) 36.1 % Normal [facility] Comment on above: Order Comment: Speci men Type: BLOOD SPECIMEN Ordering Facility: [facility] Address: [address] [place], [place] [address] Performed By: #### 5 7021-8 #### [facility] CLIA [id number] [address] [place] [address] 75903 Nucleated RBC (Bld) [#/Vol] 10*3/uL Normal <0.01 [facility] Comment on above: Order Comment: Speci men Type: BLOOD SPECIMEN Ordering Facility: [facility] Address: [address] [place], [place] [address] Performed By: #### 5 7021-8 #### [facility] CLIA [id number] [address] [place] [address] 95726 Nucleated RBC/100 WBC (Bld) [Ratio] 0.0 /100 WBC Normal [facility] Comment on above: Order Comment: Speci men Type: BLOOD SPECIMEN Ordering Facility: [facility] Address: [address] [place] [address] Performed By: #### 5 7021-8 #### [facility] CLIA [id number] [address] [place] [address] 22742 Platelet mean volume (Bld) [Entitic vol] 8.8 fL Low 9.0-12.7 [facility] Comment on above: Order Comment: Speci men Type: BLOOD SPECIMEN Ordering Facility: [facility] Address: [address] [place] [address] Performed By: #### 5 7021-8 #### [facility] CLIA [id number] [address] [place] [address] 69694 Platelets (Bld) [#/Vol] 419 10*3/uL High 150-400 [facility] Comment on above: Order Comment: Speci men Type: BLOOD SPECIMEN Ordering Facility: [facility] Address: [address] [place] [address] Performed By: #### 5 7021-8 #### [facility] CLIA [id number] [address] [place] [address] 76121 RBC (Bld) [#/Vol] 4.18 10*6/uL Normal 3.90-5.20 [facility] Comment on above: Order Comment: Speci men Type: BLOOD SPECIMEN Ordering Facility: [facility] Address: [address] [place] [address] Performed By: #### 5 7021-8 #### [facility] CLIA [id number] [address] [place] [address] 26354 WBC (Bld) [#/Vol] 6.61 10*3/uL Normal 3.70-11.00 [facility] Comment on above: Order Comment: Speci men Type: BLOOD SPECIMEN Ordering Facility: [facility] Address: [address], [place] [address] Performed By: #### 5 7021-8 #### [facility] CLIA [id number] [address] [place] [address] 92858 CNOVSPon 03-10-2022 CNOVSP Visit (SP) Office (HEMASA) MAGALIANTONIA Lacy ([id number]) 1985 F Date Time Provider Department 03/10/22 2:00 PM MADYSON NI During your visit today, we recorded the following information about you: Temperature Pulse Respiration Blood pressure 97.9 degrees 95/minute 16/minute 130/75 Weight Height 83.4 kg 1.651 m Madyson Ni APRN.CNP 03/10/2022 2:25 PM Signed NAME: Antonia Noyola CLINIC NO.: [id number] DATE OF SERVICE: March 10, 2022 (Elements copied from Dr. Gino Reid note dated October 27, 2020, have been reviewed and updated where appropriate, and all reflect current assessment and medical decision making during today's encounter, March 10, 2022) Referring Provider: Dr. Jennifer Duran Additional Clinicians involved in Antoniaalisia Noyola's care: CC: Iron deficiency anemia ASSESSMENT: [...] 1. HPI: Updated Visit, March 10, 2022: Antoniaalisia Noyola returns for follow-up. She recently saw her PCP, Dr. Duran, and was found to have abnormal labs including a low hemoglobin and low iron studies. She continues to have heavy monthly menses lasting on average 6 days. She denies any other signs of blood loss. Her biggest complaint is fatigue. 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 She works [...] with subsequent iron deficiency. [place] [facility] [place] show hemoglobin of 11.6 [...] to chronic (more content not included)... Normal [facility] Comprehensive metabolic 2000 panelon 03-10-2022 Albumin [Mass/Vol] 4.0 g/dL Normal 3.9-4.9 [facility] Comment on above: Order Comment: Roselyn conway Type: BLOOD SPECIMEN Ordering Facility: [facility] Address: [address] [address] Performed By: #### 2 4323-8 #### [facility] CLIA [id number] [address] [place] [address] 86576 ALP [Catalytic activity/Vol] 55 U/L Normal 34-123 [facility] Comment on above: Order Comment: Roselyn conway Type: BLOOD SPECIMEN Ordering Facility: [facility] Address: [address] [address] Performed By: #### 2 4323-8 #### [facility] CLIA [id number] [address] [place] [address] ALT [Catalytic activity/Vol] 12 U/L Normal 7-38 [facility] Comment on above: Order Comment: Speci men Type: BLOOD SPECIMEN Ordering Facility: [facility] Address: [address] [address] Performed By: #### 2 4323-8 #### [facility] CLIA [id number] [address] [place] [address] Anion gap [Moles/Vol] 9 mmol/L Normal 9-18 [facility] Comment on above: Order Comment: Speci men Type: BLOOD SPECIMEN Ordering Facility: [facility] Address: [address] [place] [address] Performed By: #### 2 4323-8 #### [facility] CLIA [id number] [address] [place] [address] 66475 AST [Catalytic activity/Vol] 14 U/L Normal 13-35 [facility] Comment on above: Order Comment: Speci men Type: BLOOD SPECIMEN Ordering Facility: [facility] Address: [address] [place] [address] Performed By: #### 2 4323-8 #### [facility] CLIA [id number] [address] [place] [address] 86874 Bilirubin [Mass/Vol] 0.3 mg/dL Normal 0.2-1.3 [facility] Comment on above: Order Comment: Speci men Type: BLOOD SPECIMEN Ordering Facility: [facility] Address: [address] [address] Performed By: #### 2 4323-8 #### [facility] CLIA [id number] [address] [place] [address] 98062 Calcium [Mass/Vol] 8.8 mg/dL Normal 8.5-10.2 [facility] Comment on above: Order Comment: Speci men Type: BLOOD SPECIMEN Ordering Facility: [facility] Address: [address] [place] [address] Performed By: #### 2 4323-8 #### [facility] CLIA [id number] [address] [place] [address] Chloride [Moles/Vol] 105 mmol/L Normal 97-105 [facility] Comment on above: Order Comment: Speci men Type: BLOOD SPECIMEN Ordering Facility: [facility] Address: [address] [place] [address] Performed By: #### 2 4323-8 #### [facility] CLIA [id number] [address] [place] [address] 66815 CO2 [Moles/Vol] 24 mmol/L Normal 22-30 [facility] Comment on above: Order Comment: Speci men Type: BLOOD SPECIMEN Ordering Facility: [facility] Address: [address] [place] [address] Performed By: #### 2 4323-8 #### [facility] CLIA [id number] [address] [place] [address] 25790 Creatinine [Mass/Vol] 0.65 mg/dL Normal 0.58-0.96 [facility] Comment on above: Order Comment: Speci men Type: BLOOD SPECIMEN Ordering Facility: [facility] Address: [address] [place] [address] Performed By: #### 2 4323-8 #### [facility] CLIA [id number] [address] [place] [address] 42188 ESTIMATED GLOMERULAR FILTRATION RATE 118 mL/min/1.73m??? Normal >=60 [facility] Comment on above: Order Comment: Speci men Type: BLOOD SPECIMEN Ordering Facility: [facility] Address: [address] [place] [address] Result Comment: Shelley mated Glomerular Filtration Rate [...] [facility] CLIA [id number] [address] [place] [address] 30302 Glucose [Mass/Vol] 109 mg/dL High 74-99 [facility] Comment on above: Order Comment: Roselyn conway Type: BLOOD SPECIMEN Ordering Facility: [facility] Address: [address] [place] [address] Result Comment: The [place] [employer] (ADA) provides guidance for cutoff [...] Standards of Medical Care in Diabetes 2016, [place] [employer]. Diabetes Care. 2016.39(Suppl 1). Performed By: #### 2 4323-8 #### [facility] CLIA [id number] [address] [place] [address] 84273 Potassium [Moles/Vol] 3.4 mmol/L Low 3.7-5.1 [facility] Comment on above: Order Comment: Roselyn conway Type: BLOOD SPECIMEN Ordering Facility: [facility] Address: [address] [address] Performed By: #### 2 4323-8 #### [facility] CLIA [id number] [address] [place] [address] 25363 Protein [Mass/Vol] 6.5 g/dL Normal 6.3-8.0 [facility] Comment on above: Order Comment: Roselyn conway Type: BLOOD SPECIMEN Ordering Facility[facility] Address: [address] [address] Performed By: #### 2 4323-8 #### [facility] CLIA [id number] [address] [place] [address] Sodium [Moles/Vol] 138 mmol/L Normal 136-144 [facility] Comment on above: Order Comment: Speci men Type: BLOOD SPECIMEN Ordering Facility: [facility] Address: [address] [place] [address] Performed By: #### 2 4323-8 #### [facility] [facility] CLIA [id number] [address] [place] [id number] Urea nitrogen [Mass/Vol] 8 mg/dL Normal 7-21 [facility] Comment on above: Order Comment: Speci men Type: BLOOD SPECIMEN Ordering Facility: [facility] Address: [address] [place] [address] Performed By: #### 2 4323-8 #### [facility] CLIA [id number] [address] [place] [address] Ferritin SerPl-mCncon 2021 Ferritin [Mass/Vol] 5.4 ng/mL Low 14.7-205.1 [facility] Comment on above: Order Comment: Speci men Type: BLOOD SPECIMEN Ordering Facility: [facility] Address: [address] [place] [address] Performed By: #### 5 0190-8, 2131-9, 2283-8, 6-4 #### [facility] CLIA [id number] [address] [place] [address] [place] Folate SerPl-mCncon 03-10-20 Folate [Mass/Vol] 8.7 ng/mL Normal >4.7 [facility] Comment on above: Order Comment: Speci men Type: BLOOD SPECIMEN Ordering Facility: [facility] Address: [address] [place] [address] Performed By: #### 5 0190-8, 2131-9, 4-8, 6-4 #### [facility] CLIA [id number] [address] [place] [address] [place] Iron and Iron binding capaci ty panelon 03-10-2022 Iron [Mass/Vol] 17 ug/dL Low 41-186 [facility] Comment on above: Order Comment: Speci men Type: BLOOD SPECIMEN Ordering Facility: [facility] Address: [address] [place] [address] Performed By: #### 5 0190-8, 9, 8, 6-4 #### [facility] CLIA [id number] [address] [place] [address] [place] Iron binding capacity [Mass/Vol] 422 ug/dL High 232-386 [facility] Comment on above: Order Comment: Speci men Type: BLOOD SPECIMEN Ordering Facility: [facility] Address: [address] [place] [address] Performed By: #### 5 0190-8, 9, 8, 6-4 #### [facility] CLIA [id number] [address] [place] [address] [place] Iron/TIBC [Molar ratio] 4.0 % Low 15.0-57.0 [facility] Comment on above: Order Comment: Speci men Type: BLOOD SPECIMEN Ordering Facility: [facility] Address: [address] [place], [place] [id number] Performed By: #### 5 0190-8, 9, 8, 2275-4 #### [facility] CLIA [id number] [address] [place] [address] [place] Vit B12 SerPl-mCncon 022 Cobalamin (Vitamin B12) [Mass/Vol] 367 pg/mL Normal 232-1245 [facility] Comment on above: Order Comment: Speci men Type: BLOOD SPECIMEN Ordering Facility: [facility] Address: [address] [place], [place] [id number] Performed By: #### 5 0190-8, 2132-9, 2284-8, 2276-4 #### [facility] CLIA [id number] [address] [place] [address] [place] [facility] CNPDeborah 02-18-2022 CNPN Telephone ([place]AS[place]) ANTONIA NOYOLA ([id number]) 1985 F Date Time Provider Department 02/18/22 [...] [D50.0] Order(s):CBC + DIFF [SQCBCDIF] Order #: [id number] FUTURE COMP METABOLIC PANEL [SQCMP] Order #: [id number] FUTURE IRON + TIBC [SQIRON] Order #: [id number] FUTURE FERRITIN BLD [SQFERR] Order #: [id number] FUTURE VITAMIN B12 BLOOD [SQB12] Order #: [id number] FUTURE FOLATE SERUM [SQSERFOL] Order #: [id number] FUTURE Prescriptions as of 02/20/2022 - ALPRAZolam [...] Status:Closed by GINO REID on 02/20/22 Normal [facility] Basophils Auto (Bld) [#/Vol] Ordered By: Jennifer Duran on 02-12-2022 Basophils (Bld) [#/Vol] 0.1 10*3/uL 0.0-0.2 [facility] Basophils/100 WBC Auto (Bld) Ordered By: Jennifer Duran on 02-12-2022 Basophils/100 WBC (Bld) 1.0 % . F [facility] Blood anisocytosis detection Ordered By: Jennifer Duran on 02-12-2022 Anisocytosis Ql (Bld) Moderate [facility] Blood hemoglobin measurement (mass/volume)Ordered By: Jennifer Duran on 02-12-2022 Hemoglobin (Bld) [Mass/Vol] 8.5 g/dL 11.8-15.4 [facility] Blood leukocytes automated c ount (number/volume)Ordered By: Jennifer Duran on 02-12-2022 WBC (Bld) [#/Vol] 5.9 10*3/uL 4.5-11.0 [facility] Body fluid albumin measureme nt (mass/volume)Ordered By: Jennifer Duran on 02-12-2022 Albumin (Body fld) [Mass/Vol] 3.7 g/dL 3.2-5.[address] [facility] [address] biopsyOrdered By: Jennifer avila on 02-12-2022 Transferrin [Mass/Vol] 356 mg/dL 180-380 [facility] Creatinine and Glomerular fi ltration rate.predicted panel (S/P/Bld)Ordered By: Jennifer Duran on 02-12-2022 Creatinine [Mass/Vol] 0.72 mg/dL 0.44-1.03 [facility] Eosinophils Auto (Bld) [#/Vo l]Ordered By: Jennifer Duran on 02-12-2022 Eosinophils (Bld) [#/Vol] 0.1 10*3/uL 0.0-0.45 [facility] Eosinophils/100 WBC Auto (Bl d)Ordered By: Jennifer Duran on 02-12-2022 Eosinophils/100 WBC (Bld) 2.2 % . [facility] Erythrocyte distribution wid th Auto (RBC) [Ratio]Ordered By: Jennifer Duran on 02-12-2022 Erythrocyte distribution width (RBC) [Ratio] 17.3 % 11.9-15.3 [facility] Estimated glomerular filtrat ion rate (GFR) non- AmericanOrdered By: Jennifer Duran on 02-12-2022 GFR/1.73 sq M.predicted among non-blacks MDRD (S/P/Bld) [Vol rate/Area] > 60 mL/Min [facility] Ferritin [Mass/volume] in Se rum or PlasmaOrdered By: Jennifer Duran on 02-12-2022 Ferritin [Mass/Vol] 5.1 ng/mL 11-306.8 [facility] Globulin Calc (S) [Mass/Vol] Ordered By: Jennifer Duran on 02-12-2022 Globulin (S) [Mass/Vol] 2.9 g/dL F [facility] Hematocrit Auto (Bld) [Volum e fraction]Ordered By: Jennifer Duran on 02-12-2022 Hematocrit (Bld) [Volume fraction] 27.9 % 34.0-46.4 [facility] Hypochromia detectionOrdered By: Jennifer Duran on 02-12-2022 Hypochromia Ql (Bld) Slight [facility] Iron [Mass/volume] in Serum or PlasmaOrdered By: Jennifer Duran on 02-12-2022 Iron [Mass/Vol] 11 ug/dL 40-150 [facility] Iron binding capacity [Mass/ volume] in Serum or PlasmaOrdered By: Jennifer Duran on 02-12-2022 Iron binding capacity [Mass/Vol] 498 ug/dL 255-450 [facility] Iron saturation [Mass Fracti on] in Serum or PlasmaOrdered By: Jennifer Duran on 02-12-2022 Iron saturation [Mass fraction] 2.0 % 20-50 [facility] Laboratory - Hematology and Cell countsOrdered By: Jennifer Duran on 02-12-2022 Nucleated RBC/100 WBC (Bld) [Ratio] 0.3 % 0-0.5 [facility] Lymphocytes Auto (Bld) [#/Vo l]Ordered By: Jennifer Duran on 02-12-2022 Lymphocytes (Bld) [#/Vol] 3.0 10*3/uL 1.00-4.8 [facility] Lymphocytes/100 WBC Auto (Bl d)Ordered By: Jennifer Duran on 02-12-2022 Lymphocytes/100 WBC (Bld) 50.8 % . [facility] MCH Auto (RBC) [Entitic mass ]Ordered By: Jennifer Duran on 02-12-2022 MCH (RBC) [Entitic mass] 20.1 pg 24.7-34.3 [facility] MCHC Auto (RBC) [Mass/Vol]Or dered By: Jennifer Duran on 02-12-2022 MCHC (RBC) [Mass/Vol] 30.4 g/dL 32.0-35.0 [facility] MCV Auto (RBC) [Entitic vol] Ordered By: Jennifer Duran on 02-12-2022 MCV (RBC) [Entitic vol] 66.3 fL 80-100 [facility] Monocytes Auto (Bld) [#/Vol] Ordered By: Jennifer Duran on 02-12-2022 Monocytes (Bld) [#/Vol] 0.3 10*3/uL 0.0-0.8 [facility] Monocytes/100 WBC Auto (Bld) Ordered By: Jennifer Duran on 02-12-2022 Monocytes/100 WBC (Bld) 5.7 % . [facility] Neutrophils Auto (Bld) [#/Vo l]Ordered By: Jennifer Duran on 02-12-2022 Neutrophils (Bld) [#/Vol] 2.4 10*3/uL 1.8-7.7 [facility] Neutrophils/100 WBC Auto (Bl d)Ordered By: Jennifer Duran on 02-12-2022 Neutrophils/100 WBC (Bld) 40.3 % . [facility] No Panel InformationOrdered By: Jennifer Duran on 02-12-2022 Estimated GFR () > 60 mL/Min [facility] Comment on above: GFR estimated refere nce range: According to KDOQI guidelines, <60 ml/min/1.73m2 is sufficient to diagnose a patient with chronic kidney disease. Microcytosis Moderate [facility] Pharmacy Creatinine Clearance (Chem N/A [facility] Platelet Estimate Normal Normal [facility] Platelet Morphology Comment Normal Normal [facility] Platelet mean volume Auto (B ld) [Entitic vol]Ordered By: Jennifer Duran on 02-12-2022 Platelet mean volume (Bld) [Entitic vol] 8.1 fL 6.3-10.7 [facility] Platelets Auto (Bld) [#/Vol] Ordered By: Jennifer Duran on 02-12-2022 Platelets (Bld) [#/Vol] 459 10*3/uL 150-450 [facility] Protein [Mass/volume] in Ser um or PlasmaOrdered By: Jennifer Duran on 02-12-2022 Protein [Mass/Vol] 6.6 g/dL 6.1-7.9 [facility] RBC Auto (Bld) [#/Vol]Ordere d By: Jennifer Duran on 02-12-2022 RBC (Bld) [#/Vol] 4.20 10*6/uL 3.60-5.00 [facility] RBC morphologyOrdered By: Pool Duran on 02-12-2022 RBC morphology finding Nom (Bld) N/A [facility] Serum or plasma alanine syed otransferase measurement without P-5'-P (enzymatic activiOrdered By: Jennifer Duran on 02-12-2022 ALT No additional P-5'-P [Catalytic activity/Vol] 69 U/L 10-60 [facility] Serum or plasma albumin/glob ulin mass ratioOrdered By: Jennifer Duran on 02-12-2022 Albumin/Globulin [Mass ratio] 1.3 {ratio} [facility] Serum or plasma alkaline zeeshan sphatase measurement (enzymatic activity/volume)Ordered By: Jennifer Duran on 02-12-2022 ALP [Catalytic activity/Vol] 73 U/L 32-92 [facility] Serum or plasma anion gap de terminationOrdered By: Jennifer Duran on 02-12-2022 Anion gap [Moles/Vol] 13.2 mmol/L 6.0-15.0 [facility] Serum or plasma aspartate am inotransferase measurement (enzymatic activity/volume)Ordered By: Jennifer Duran on 02-12-2022 AST [Catalytic activity/Vol] 42 U/L 10-42 [facility] Serum or plasma calcium donaldo urement (mass/volume)Ordered By: Jennifer Duran on 02-12-2022 Calcium [Mass/Vol] 9.3 mg/dL 8.2-10.2 [facility] Serum or plasma chloride claudia surement (moles/volume)Ordered By: Jennifer Duran on 02-12-2022 Chloride [Moles/Vol] 101 mmol/L 95-114 [facility] Serum or plasma glucose donaldo urement [...] on 02-12-2022 Potassium [Moles/Vol] 3.6 mmol/L 3.5-5.1 [facility] Serum or plasma sodium measu rement (moles/volume)Ordered By: Jennifer Duran on 02-12-2022 Sodium [Moles/Vol] 136 mmol/L 136-146 [facility] Serum or plasma total biliru bin measurement (mass/volume)Ordered By: Jennifer Duran on 02-12-2022 Bilirubin [Mass/Vol] 0.4 mg/dL 0.3-1.2 [facility] Serum or plasma total carbon dioxide measurement (moles/volume)Ordered By: Jennifer Duran on 02-12-2022 CO2 [Moles/Vol] 25.4 mmol/L 22.0-30.0 [facility] Serum or plasma urea nitroge n measurement (mass/volume)Ordered By: Jennifer Duran on 02-12-2022 Urea nitrogen [Mass/Vol] 4 mg/dL 9- [facility] Basophils Auto (Bld) [#/Vol] Ordered By: Kendra Persaud on 09-14-2021 Basophils (Bld) [#/Vol] 0.1 10*3/uL 0.0-0.2 [facility] Basophils/100 WBC Auto (Bld) Ordered By: Kendra Persaud on 09-14-2021 Basophils/100 WBC (Bld) 1.3 % F [facility] Bilirubin Test strip Ql (U)O rdered By: Kendra Persaud on 09-14-2021 Bilirubin Ql (U) Negative Negative [facility] Blood hemoglobin measurement (mass/volume)Ordered By: Kendra Persaud on 09-14-2021 Hemoglobin (Bld) [Mass/Vol] 9.7 g/dL 11.8-15.4 [facility] Blood leukocytes automated c ount (number/volume)Ordered By: Kendra Persaud on 09-14-2021 WBC (Bld) [#/Vol] 8.9 10*3/uL 4.5-11.0 [facility] Body fluid albumin measureme nt (mass/volume)Ordered By: Kendra Persaud on 09-14-2021 Albumin (Body fld) [Mass/Vol] 3.7 g/dL 3.2-5.5 [facility] Color Auto (U)Ordered By: Jazmin Persaud on 09-14-2021 Color (U) Yellow Yellow [facility] Creatinine and Glomerular fi ltration rate.predicted panel (S/P/Bld)Ordered By: Kendra Persaud on 09-14-2021 Creatinine [Mass/Vol] 0.71 mg/dL 0.44-1.03 [facility] Eosinophils Auto (Bld) [#/Vo l]Ordered By: Kendra Persaud on 09-14-2021 Eosinophils (Bld) [#/Vol] 0.0 10*3/uL 0.0-0.45 [facility] Eosinophils/100 WBC Auto (Bl d)Ordered By: Kendra Persaud on 09-14-2021 Eosinophils/100 WBC (Bld) 0.4 % [facility] Erythrocyte distribution wid th Auto (RBC) [Ratio]Ordered By: Kendra Persaud on 09-14-2021 Erythrocyte distribution width (RBC) [Ratio] 17.0 % 11.9-15.3 [facility] Estimated glomerular filtrat ion rate (GFR) non- AmericanOrdered By: Kendra Persaud on 09-14-2021 GFR/1.73 sq M.predicted among non-blacks MDRD (S/P/Bld) [Vol rate/Area] > 60 mL/Min [facility] Globulin Calc (S) [Mass/Vol] Ordered By: Kendra Persaud on 09-14-2021 Globulin (S) [Mass/Vol] 3.2 g/dL [facility] HCG ( test) IA.rapi d Ql (U)Ordered By: Kendra Persaud on 09-14-2021 HCG ( test) Ql (U) Negative [facility] Hematocrit Auto (Bld) [Volum e fraction]Ordered By: Kendra Persaud on 09-14-2021 Hematocrit (Bld) [Volume fraction] 31.9 % 34.0-46.4 [facility] Ketones Auto test strip (U) [Mass/Vol]Ordered By: Kendra Persaud on 09-14-2021 Ketones (U) [Mass/Vol] Negative Negative [facility] Laboratory - Chemistry and C hemistry - challengeOrdered By: Kendra Persaud on 09-14-2021 Lipase [Catalytic activity/Vol] 36.0 U/L 22-51 [facility] - Hematology and Cell countsOrdered By: Kendra Persaud on 04-04-2022 Nucleated RBC/100 WBC (Bld) [Ratio] 0.0 % 0-0.5 [facility] Lymphocytes Auto (Bld) [#/Vo l]Ordered By: Kendra Persaud on 09-14-2021 Lymphocytes (Bld) [#/Vol] 4.1 10*3/uL 1.00-4.8 [facility] Lymphocytes/100 WBC Auto (Bl d)Ordered By: Kendra Persaud on 09-14-2021 Lymphocytes/100 WBC (Bld) 45.7 % [facility] MCH Auto (RBC) [Entitic mass ]Ordered By: Kendra Persaud on 09-14-2021 MCH (RBC) [Entitic mass] 21.3 pg 24.7-34.3 [facility] MCHC Auto (RBC) [Mass/Vol]Or dered By: Kendra Persaud on 09-14-2021 MCHC (RBC) [Mass/Vol] 30.4 g/dL 32.0-35.0 [facility] MCV Auto (RBC) [Entitic vol] Ordered By: Kendra Persaud on 09-14-2021 MCV (RBC) [Entitic vol] 70.0 fL 80-100 [facility] Monocytes Auto (Bld) [#/Vol] Ordered By: Kendra Persaud on 09-14-2021 Monocytes (Bld) [#/Vol] 0.7 10*3/uL 0.0-0.8 [facility] Monocytes/100 WBC Auto (Bld) Ordered By: Kendra Persaud on 09-14-2021 Monocytes/100 WBC (Bld) 7.8 % [facility] Neutrophils Auto (Bld) [#/Vo l]Ordered By: Kendra Persaud on 09-14-2021 Neutrophils (Bld) [#/Vol] 4.0 10*3/uL 1.8-7.7 [facility] Neutrophils/100 WBC Auto (Bl d)Ordered By: Kendra Persaud on 09-14-2021 Neutrophils/100 WBC (Bld) 44.8 % [facility] Nitrite Test strip Ql (U)Ord ered By: Kendra Persaud on 09-14-2021 Nitrite Ql (U) Negative Negative [facility] No Panel InformationOrdered By: Kendra Persaud on 09-14-2021 Estimated GFR () > 60 mL/Min [facility] Comment on above: GFR estimated refere nce range: According to KDOQI guidelines, <60 ml/min/1.73m2 is sufficient to diagnose a patient with chronic kidney disease. Pharmacy Creatinine Clearance (Chem 119.44 [facility] Platelet mean volume Auto (B ld) [Entitic vol]Ordered By: Kendra Persaud on 09-14-2021 Platelet mean volume (Bld) [Entitic vol] 7.4 fL 6.3-10.7 [facility] Platelets Auto (Bld) [#/Vol] Ordered By: Kendra Persaud on 09-14-2021 Platelets (Bld) [#/Vol] 604 10*3/uL 150-450 [facility] Protein Auto test strip (U) [Mass/Vol]Ordered By: Kendra Persaud on 09-14-2021 Protein (U) [Mass/Vol] Negative Negative [facility] Protein [Mass/volume] in Ser um or PlasmaOrdered By: Kendra Persaud on 09-14-2021 Protein [Mass/Vol] 6.9 g/dL 6.1-7.9 [facility] RBC Auto (Bld) [#/Vol]Ordere d By: Kendra Persaud on 09-14-2021 RBC (Bld) [#/Vol] 4.55 10*6/uL 3.60-5.00 [facility] Serum or plasma alanine syed otransferase measurement without P-5'-P (enzymatic activiOrdered By: Kendra Persaud on 09-14-2021 ALT No additional P-5'-P [Catalytic activity/Vol] 16 U/L 10-60 [facility] Serum or plasma albumin/glob ulin mass ratioOrdered By: Kendra Persaud on 09-14-2021 Albumin/Globulin [Mass ratio] 1.2 {ratio} [facility] Serum or plasma alkaline zeeshan sphatase measurement (enzymatic activity/volume)Ordered By: Kendra Persaud on 09-14-2021 ALP [Catalytic activity/Vol] 48 U/L 32-92 [facility] Serum or plasma aspartate am inotransferase measurement (enzymatic activity/volume)Ordered By: Kendra Persaud on 09-14-2021 AST [Catalytic activity/Vol] 17 U/L 10-42 [facility] Serum or plasma calcium donaldo urement (mass/volume)Ordered By: Kendra Persaud on 09-14-2021 Calcium [Mass/Vol] 9.0 mg/dL 8.2-10.2 [facility] Serum or plasma chloride claudia surement (moles/volume)Ordered By: Kendra Persaud on 09-14-2021 Chloride [Moles/Vol] 105 mmol/L 95-114 [facility] Serum or plasma glucose donaldo urement [...] on 09-14-2021 Potassium [Moles/Vol] 3.1 mmol/L 3.5-5.1 [facility] Serum or plasma sodium measu rement (moles/volume)Ordered By: Kendra Persaud on 09-14-2021 Sodium [Moles/Vol] 139 mmol/L 136-146 [facility] Serum or plasma total biliru bin measurement (mass/volume)Ordered By: Kendra Persaud on 09-14-2021 Bilirubin [Mass/Vol] 0.5 mg/dL 0.3-1.2 [facility] Serum or plasma total carbon dioxide measurement (moles/volume)Ordered By: Kendra Persaud on 09-14-2021 CO2 [Moles/Vol] 23.7 mmol/L 22.0-30.0 [facility] Serum or plasma urea nitroge n measurement (mass/volume)Ordered By: Kendra Persaud on 09-14-2021 Urea nitrogen [Mass/Vol] 4 mg/dL 9-23 [facility] Specific gravity Auto test s trip (U) [Rel density]Ordered By: Kendra Persaud on 09-14-2021 Specific gravity (U) [Rel density] 1.004 1.001-1.030 [facility] Urine clarity by refractomet ry automatedOrdered By: Kendra Persaud on 09-14-2021 Clarity Refractometry automated (U) Clear Clear [facility] Urine glucose measurement by automated test strip (mass/volume)Ordered By: Kendra Persaud on 09-14-2021 Glucose Auto test strip (U) [Mass/Vol] Normal mg/dL Normal [facility] Urine hemoglobin detection b y automated test stripOrdered By: Kendra Persaud on 09-14-2021 Hemoglobin Auto test strip Ql (U) Negative Negative [facility] Urine leukocyte esterase det ection by automated test stripOrdered By: Kendra Persaud on 09-14-2021 Leukocyte esterase Auto test strip Ql (U) Negative Negative [facility] Urobilinogen Auto test strip (U) [Mass/Vol]Ordered By: Kendra Persaud on 09-14-2021 Urobilinogen (U) [Mass/Vol] Normal mg/dL Normal [facility] pH Auto test strip (U)Ordere d By: Kendra Persaud on 09-14-2021 pH (U) 6.5 [pH] 5.0-9.0 [facility] Basophils Auto (Bld) [#/Vol] Ordered By: Augustus Santiago on 07-04-2021 Basophils (Bld) [#/Vol] 0.1 10*3/uL 0.0-0.2 [facility] Basophils/100 WBC Auto (Bld) Ordered By: Augustus Santiago on 07-04-2021 Basophils/100 WBC (Bld) 0.9 % [facility] Blood hemoglobin measurement (mass/volume)Ordered By: Augustus Santiago on 07-04-2021 Hemoglobin (Bld) [Mass/Vol] 10.2 g/dL 11.8-15.4 [facility] Blood leukocytes automated c ount (number/volume)Ordered By: Augustus Santiago on 07-04-2021 WBC (Bld) [#/Vol] 6.6 10*3/uL 4.5-11.0 [facility] CT biopsyOrdered By: Augustus powell on 07-04-2021 Transferrin [Mass/Vol] 360 mg/dL 180-380 [facility] Creatinine and Glomerular fi ltration rate.predicted panel (S/P/Bld)Ordered By: Augustus Santiago on 07-04-2021 Creatinine [Mass/Vol] 0.69 mg/dL 0.44-1.03 [facility] Eosinophils Auto (Bld) [#/Vo l]Ordered By: Augustus Santiago on 07-04-2021 Eosinophils (Bld) [#/Vol] 0.1 10*3/uL 0.0-0.45 [facility] Eosinophils/100 WBC Auto (Bl d)Ordered By: Augustus Santiago on 07-04-2021 Eosinophils/100 WBC (Bld) 1.2 % [facility] Erythrocyte distribution wid th Auto (RBC) [Ratio]Ordered By: Augustus Santiago on 07-04-2021 Erythrocyte distribution width (RBC) [Ratio] 17.2 % 11.9-15.3 [facility] Estimated glomerular filtrat ion rate (GFR) non- AmericanOrdered By: Augustus Santiago on 07-04-2021 GFR/1.73 sq M.predicted among non-blacks MDRD (S/P/Bld) [Vol rate/Area] > 60 mL/Min [facility] Hematocrit Auto (Bld) [Volum e fraction]Ordered By: Augustus Santiago on 07-04-2021 Hematocrit (Bld) [Volume fraction] 32.0 % 34.0-46.4 [facility] Iron [Mass/volume] in Serum or PlasmaOrdered By: Augustus Santiago on 07-04-2021 Iron [Mass/Vol] 10 ug/dL 40-150 [facility] Iron binding capacity [Mass/ volume] in Serum or PlasmaOrdered By: Augustus Santiago on 07-04-2021 Iron binding capacity [Mass/Vol] 504 ug/dL 255-450 [facility] Iron saturation [Mass Fracti on] in Serum or PlasmaOrdered By: Augustus Santiago on 07-04-2021 Iron saturation [Mass fraction] 1.0 % 20-50 [facility] Laboratory - Hematology and Cell countsOrdered By: Augustus Santiago on 07-04-2021 Nucleated RBC/100 WBC (Bld) [Ratio] 0.0 % 0-0.5 [facility] Lymphocytes Auto (Bld) [#/Vo l]Ordered By: Augustus Santiago on 07-04-2021 Lymphocytes (Bld) [#/Vol] 1.9 10*3/uL 1.00-4.8 [facility] Lymphocytes/100 WBC Auto (Bl d)Ordered By: Augustus Santiago on 07-04-2021 Lymphocytes/100 WBC (Bld) 28.4 % [facility] MCH Auto (RBC) [Entitic mass ]Ordered By: Augustus Santiago on 07-04-2021 MCH (RBC) [Entitic mass] 22.7 pg 24.7-34.3 [facility] MCHC Auto (RBC) [Mass/Vol]Or dered By: Augustus Santiago on 07-04-2021 MCHC (RBC) [Mass/Vol] 31.9 g/dL 32.0-35.0 [facility] MCV Auto (RBC) [Entitic vol] Ordered By: Augustus Santiago on 07-04-2021 MCV (RBC) [Entitic vol] 71.3 fL 80-100 [facility] Monocytes Auto (Bld) [#/Vol] Ordered By: Augustus Santiago on 07-04-2021 Monocytes (Bld) [#/Vol] 0.5 10*3/uL 0.0-0.8 [facility] Monocytes/100 WBC Auto (Bld) Ordered By: Augustus Santiago on 07-04-2021 Monocytes/100 WBC (Bld) 7.6 % [facility] Neutrophils Auto (Bld) [#/Vo l]Ordered By: Augustus Santiago on 07-04-2021 Neutrophils (Bld) [#/Vol] 4.1 10*3/uL 1.8-7.7 [facility] Neutrophils/100 WBC Auto (Bl d)Ordered By: Augustus Santiago on 07-04-2021 Neutrophils/100 WBC (Bld) 61.9 % [facility] No Panel InformationOrdered By: Augustus Santiago on 07-04-2021 D-Dimer Quantitative (PE/DVT) < 200 ng/mL 0-243 [facility] Comment on above: The reference [...] conditions. Estimated GFR () > 60 mL/Min [facility] Comment on above: GFR estimated refere nce range: According to KDOQI guidelines, <60 ml/min/1.73m2 is sufficient to diagnose a patient with chronic kidney disease. Pharmacy Creatinine Clearance (Chem N/A [facility] Platelet mean volume Auto (B ld) [Entitic vol]Ordered By: Augustus Santiago on 07-04-2021 Platelet mean volume (Bld) [Entitic vol] 7.9 fL 6.3-10.7 [facility] Platelets Auto (Bld) [#/Vol] Ordered By: Augustus Santiago on 07-04-2021 Platelets (Bld) [#/Vol] 457 10*3/uL 150-450 [facility] RBC Auto (Bld) [#/Vol]Ordere d By: Augustus Santiago on 07-04-2021 RBC (Bld) [#/Vol] 4.48 10*6/uL 3.60-5.00 [facility] Serum or plasma calcium donaldo urement (mass/volume)Ordered By: Augustus Santiago on 07-04-2021 Calcium [Mass/Vol] 8.9 mg/dL 8.2-10.2 [facility] Serum or plasma chloride claudia surement (moles/volume)Ordered By: Augustus Santiago on 07-04-2021 Chloride [Moles/Vol] 105 mmol/L 95-114 [facility] Serum or plasma glucose donaldo urement [...] on 07-04-2021 Potassium [Moles/Vol] 3.5 mmol/L 3.5-5.1 [facility] Serum or plasma sodium measu rement (moles/volume)Ordered By: Augustus Santiago on 07-04-2021 Sodium [Moles/Vol] 136 mmol/L 136-146 [facility] Serum or plasma total carbon dioxide measurement (moles/volume)Ordered By: Augustus Santiago on 07-04-2021 CO2 [Moles/Vol] 23.0 mmol/L 22.0-30.0 [facility] Serum or plasma urea nitroge n measurement (mass/volume)Ordered By: Augustus Santiago on 07-04-2021 Urea nitrogen [Mass/Vol] 5 mg/dL 9-23 [facility] Cardiac Stress Teston 2020 Cardiac Stress Test [address], [place] [address] TRANSTHORACIC ECHOCARDIOGRAM REPORT Patient Name: ANTONIA Alfredo Physician: [id number] Raphael Alas MD Study Date: 08/06/2020 Referring Physician: [id number] CANTU MRN/PID: [id number] PCP: Jennifer Duran Accession/Order#: [id number] Department Location: [facility] Date of : 1985 Fellow: Gender: F Nurse: Admit Date: Compounding Technician: Josephine Newton RDCS, T Height: 165.10 cm CC Report to: Weight: 88.00 kg Study Type: Echocardiogram BSA: 1.95 m2 Diagnosis/ICD: R06.00-Dyspnea, unspecified; R00.0-Tachycardia, unspecified Indication: Obesity, Family History of CAD Procedure/CPT: Echo Complete w Full [id number] Study Detail: The following Echo studies were [...] 0.9 m/s (0.6-0.9m/s) PV Max P.0 mmHg [id number] Raphael Alas MD Electronically signed on 08/07/2020 at 4:26:59 PM Final Normal [facility] Vital Signs Date Time Vital Sign Value Performing Clinician Facility 06-28-2024 01:00-0500 Diastolic blood pressure 134 mm[Hg] Stunn [facility] 06-28-2024 01:00-0500 Heart rate 119 /min [facility] 06-28-2024 01:00-0500 Mean blood pressure 142 mm[Hg] [facility] 06-28-2024 01:00-0500 SaO2% (BldA) [Mass fraction] 95 % Kaylinn Dokken [facility] 06-28-2024 01:00-0500 Systolic blood pressure 157 mm[Hg] Kaylinn Dokken [facility] 06-28-2024 00:00-0500 Diastolic blood pressure 98 mm[Hg] Kaylinn Dokken [facility] 06-28-2024 00:00-0500 Heart rate 137 /min Kaylinn Dokken [facility] 06-28-2024 00:00-0500 Mean blood pressure 121 mm[Hg] Kaylinn Dokken [facility] 06-28-2024 00:00-0500 Systolic blood pressure 168 mm[Hg] Kaylinn Dokken [facility] 06-27-2024 22:12-0500 Body temperature 97.34 [degF] Kaylinn Dokken [facility] 06-27-2024 22:12-0500 Diastolic blood pressure 85 mm[Hg] Kaylinn Dokken [facility] 06-27-2024 22:12-0500 Heart rate 125 /min Kaylinn Dokken [facility] 06-27-2024 22:12-0500 Respiratory rate 20 /min Kaylinn Dokken [facility] 06-27-2024 22:12-0500 SaO2% (BldA) [Mass fraction] 100 % Kaylinn Dokken [facility] 06-27-2024 22:12-0500 Systolic blood pressure 133 mm[Hg] Jordyn Willett [facility] 06-27-2024 15:15-0500 Diastolic blood pressure 85 mm[Hg] Randee Richardson MD Work Phone: [employer] 06-27-2024 15:15-0500 SaO2% (BldA) [Mass fraction] 97 % Randee Richardson MD Work Phone: [employer] 06-27-2024 15:15-0500 Systolic blood pressure 129 mm[Hg] Randee Richardson MD Work Phone: [employer] 06-27-2024 13:28-0500 Body mass index (BMI) [Ratio] 30.79 kg/m2 Randee Richardson MD Work Phone: [employer] 06-27-2024 13:28-0500 Body temperature 97.7 [degF] Randee Richardson MD Work Phone: [employer] 06-27-2024 13:28-0500 Body weight 83.92 kg Randee Richardson MD Work Phone: [employer] 06-27-2024 13:28-0500 Heart rate 103 /min Randee Richardson MD Work Phone: [employer] 06-27-2024 13:28-0500 Respiratory rate 16 /min Randee Richardson MD Work Phone: [employer] 06-25-2024 01:00-0500 Diastolic blood pressure 90 mm[Hg] Ritesh Ivana [facility] 06-25-2024 01:00-0500 Heart rate 128 /min Ritesh Ivana [facility] 06-25-2024 01:00-0500 Mean blood pressure 105 mm[Hg] Ritesh Ivana [facility] 06-25-2024 01:00-0500 SaO2% (BldA) [Mass fraction] 97 % Ritesh Ivana [facility] 06-25-2024 01:00-0500 Systolic blood pressure 135 mm[Hg] Ritesh Ivana [facility] 06-25-2024 00:30-0500 Diastolic blood pressure 85 mm[Hg] Ritesh Ivana [facility] 06-25-2024 00:30-0500 Heart rate 124 /min Ritesh Ivana [facility] 06-25-2024 00:30-0500 Mean blood pressure 96 mm[Hg] Ritesh Ivana [facility] 06-25-2024 00:30-0500 Respiratory rate 20 /min Ritesh Ivana [facility] 06-25-2024 00:30-0500 SaO2% (BldA) [Mass fraction] 100 % Ritesh Ivana [facility] 06-25-2024 00:30-0500 Systolic blood pressure 118 mm[Hg] Ritesh Ivana [facility] 06-24-2024 23:35-0500 Diastolic blood pressure 97 mm[Hg] Ritesh Ivana [facility] 06-24-2024 23:35-0500 Heart rate 121 /min Ritesh Ivana [facility] 06-24-2024 23:35-0500 Mean blood pressure 110 mm[Hg] Ritesh Ivana [facility] 06-24-2024 23:35-0500 SaO2% (BldA) [Mass fraction] 100 % Ritesh Ivana [facility] 06-24-2024 23:35-0500 Systolic blood pressure 136 mm[Hg] Ritesh Ivana [facility] 06-24-2024 19:30-0500 Body temperature 97.7 [degF] Ritesh Lynnner [facility] 06-24-2024 19:30-0500 Heart rate 147 /min Ritesh Ivana [facility] 04-03-2024 14:49-0400 Body height 165.1 cm [facility] 04-03-2024 14:49-0400 Body mass index (BMI) [Ratio] 31.62 kg/m2 [facility] 2 [facility] 04-03-2024 14:49-0400 Body weight 86.18 kg [facility] 2 [facility] 03-28-2024 11:02-0400 Body height 165.1 cm Adiel Aparicio MD Work Phone: [facility] 03-28-2024 11:02-0400 Body mass index (BMI) [Ratio] 32.98 kg/m2 Adiel Aparicio MD Work Phone: [facility] 03-28-2024 11:02-0400 Body weight 89.9 kg Adiel Aparicio MD Work Phone: [facility] 03-23-2024 12:03-0400 Body mass index (BMI) [Ratio] 32.5 kg/m2 [facility] 03-23-2024 12:03-0400 Body temperature 97.9 [degF] [facility] 03-23-2024 12:03-0400 Body weight 88.9 kg [facility] 03-23-2024 12:03-0400 Diastolic blood pressure 64 mm[Hg] [facility] 03-23-2024 12:03-0400 Heart rate 91 /min [facility] 03-23-2024 12:03-0400 SaO2% (BldA) [Mass fraction] 98 % [facility] 03-23-2024 12:03-0400 Systolic blood pressure 102 mm[Hg] [facility] 03-23-2024 08:40-0400 Body height 165.1 cm [facility] 03-03-2024 15:27-0400 Body temperature 98.71 [degF] Davi Pay DO Work Phone: [facility] 03-03-2024 15:27-0400 Diastolic blood pressure 84 mm[Hg] Davi Pay DO Work Phone: [employer] 03-03-2024 15:27-0400 Heart rate 115 /min Davi Pay DO Work Phone: [facility] [employer] [facility] 03-03-2024 15:27-0400 Respiratory rate 18 /min Davi Pay DO Work Phone: [facility] 03-03-2024 15:27-0400 SaO2% (BldA) [Mass fraction] 97 % Davi Pay DO Work Phone: [facility] [employer] 03-03-2024 15:27-0400 Systolic blood pressure 164 mm[Hg] Davi Pay DO Work Phone: [facility] 02-24-2024 20:29-0400 Body height 165.1 cm Ashley Delcid MD Work Phone: [facility] 02-24-2024 20:29-0400 Body temperature 98.01 [degF] Ashley Delcid MD Work Phone: [facility] 02-24-2024 20:29-0400 Diastolic blood pressure 72 mm[Hg] Ashley Delcid MD Work Phone: [employer] [facility] 02-24-2024 20:29-0400 Heart rate 94 /min Ashley Delcid MD Work Phone: [facility] 02-24-2024 20:29-0400 Respiratory rate 20 /min Ashley Delcid MD Work Phone: [facility] 02-24-2024 20:29-0400 SaO2% (BldA) [Mass fraction] 99 % Ashley Delcid MD Work Phone: [facility] 02-24-2024 20:29-0400 Systolic blood pressure 129 mm[Hg] Ashley Delcid MD Work Phone: [facility] 02-16-2024 16:47-0400 Diastolic blood pressure 68 mm[Hg] Jennifer Moore MD Work Phone: [facility] 02-16-2024 16:47-0400 Heart rate 99 /min Jennifer Moore MD Work Phone: [facility] 02-16-2024 16:47-0400 SaO2% (BldA) [Mass fraction] 96 % Jennifer Moore MD Work Phone: [facility] 02-16-2024 16:47-0400 Systolic blood pressure 115 mm[Hg] Jennifer Moore MD Work Phone: [facility] 02-16-2024 16:38-0400 Respiratory rate 18 /min Jennifer Moore MD Work Phone: [facility] 02-16-2024 13:28-0400 Body temperature 98.29 [degF] Jennifer Moore MD Work Phone: [facility] 02-13-2024 00:26-0400 Body temperature 98.24 [degF] Ritesh Ivana [facility] 02-13-2024 00:26-0400 Diastolic blood pressure 72 mm[Hg] Ritesh Ivana [facility] 02-13-2024 00:26-0400 Heart rate 86 /min Ritesh Ivana [facility] 02-13-2024 00:26-0400 Respiratory rate 16 /min Ritesh Ivana [facility] 02-13-2024 00:26-0400 SaO2% (BldA) [Mass fraction] 100 % Ritesh Ivana [facility] 02-13-2024 00:26-0400 Systolic blood pressure 109 mm[Hg] Ritesh Heath [facility] 01-22-2024 12:13-0400 Body height 165.1 cm Eren Camejo DO Work Phone: [facility] [employer] 01-22-2024 12:13-0400 Body mass index (BMI) [Ratio] 29.95 kg/m2 Eren Camejo DO Work Phone: [facility] [employer] 01-22-2024 12:13-0400 Body temperature 98.71 [degF] Eren [facility]amejo DO Work Phone: [facility] [employer] 01-22-2024 12:13-0400 Body weight 81.65 kg Eren Camejo DO Work Phone: [facility] [employer] 01-22-2024 12:13-0400 Diastolic blood pressure 92 mm[Hg] Eren Camejo DO Work Phone: [facility] [employer] 01-22-2024 12:13-0400 Heart rate 109 /min Eren Camejo DO Work Phone: [facility] [employer] 01-22-2024 12:13-0400 Respiratory rate 18 /min Eren Camejo DO Work Phone: [facility] [employer] 01-22-2024 12:13-0400 SaO2% (BldA) [Mass fraction] 100 % Eren Camejo DO Work Phone: [facility] [employer] 01-22-2024 12:13-0400 Systolic blood pressure 152 mm[Hg] Eren Camejo DO Work Phone: [facility] [employer] 01-19-2024 11:18-0400 Body height 165.1 cm DO Jennifer Duran Work Phone: [facility] 01-19-2024 11:18-0400 Body mass index (BMI) [Ratio] 31.9 kg/m2 DO Jennifer Duran Work Phone: [facility] 01-19-2024 11:18-0400 Body temperature 98.2 [degF] DO Jennifer Girvin Work Phone: [facility] 01-19-2024 11:18-0400 Body weight 87.08 kg DO Jennifer Girvin Work Phone: [facility] 01-19-2024 11:18-0400 Diastolic blood pressure 82 mm[Hg] DO Jennifer Girvin Work Phone: [facility] 01-19-2024 11:18-0400 Heart rate 102 /min DO Jennifer Girvin Work Phone: [facility] 01-19-2024 11:18-0400 Respiratory rate 18 /min DO Jennifer Girvin Work Phone: [facility] 01-19-2024 11:18-0400 SaO2% (BldA) [Mass fraction] 98 % DO Jennifer Girivelisse Work Phone: [facility] 01-19-2024 11:18-0400 Systolic blood pressure 122 mm[Hg] DO Jennifer Girivelisse Work Phone: [facility] 11-08-2023 14:03-0400 Body height 165.1 cm DO Jennifer Girivelisse Work Phone: [facility] 11-08-2023 14:03-0400 Body temperature 98.1 [degF] DO Jennifer Girivelisse Work Phone: [facility] 11-08-2023 14:03-0400 Body weight 82.85 kg DO Jennifer Girivelisse Work Phone: [facility] 11-08-2023 14:03-0400 Diastolic blood pressure 77 mm[Hg] DO Jennifer Girvin Work Phone: [facility] 11-08-2023 14:03-0400 Heart rate 86 /min DO Jennifer Girvin Work Phone: [facility] 11-08-2023 14:03-0400 Respiratory rate 16 /min DO Jennifer Girvin Work Phone: [facility] 11-08-2023 14:03-0400 SaO2% (BldA) [Mass fraction] 100 % DO Jennifer Duran Work Phone: [facility] 11-08-2023 14:03-0400 Systolic blood pressure 142 mm[Hg] DO Jennifer Duran Work Phone: [facility] 11-08-2023 11:56-0400 Body height 165.1 cm Eren Camejo DO Work Phone: [employer] 11-08-2023 11:56-0400 Body mass index (BMI) [Ratio] 30.45 kg/m2 Eren Camejo DO Work Phone: [facility] [employer] 11-08-2023 11:56-0400 Body temperature 97.81 [degF] Eren Camejo DO Work Phone: [employer] 11-08-2023 11:56-0400 Body weight 83.01 kg Eren Camejo DO Work Phone: [employer] 11-08-2023 11:56-0400 Diastolic blood pressure 86 mm[Hg] Eren Camejo DO Work Phone: [employer] 11-08-2023 11:56-0400 Heart rate 100 /min Eren Camejo DO Work Phone: [employer] 11-08-2023 11:56-0400 Respiratory rate 18 /min Eren Camejo DO Work Phone: [employer] 11-08-2023 11:56-0400 SaO2% (BldA) [Mass fraction] 99 % Eren Camejo DO Work Phone: [employer] 11-08-2023 11:56-0400 Systolic blood pressure 133 mm[Hg] Eren Camejo DO Work Phone: [employer] 09-30-2023 02:09-0400 Diastolic blood pressure 89 mm[Hg] Ritesh Heath [facility] 09-30-2023 02:09-0400 Heart rate 124 /min Ritesh Ivana [facility] 09-30-2023 02:09-0400 Mean blood pressure 109 mm[Hg] Ritesh Ivana [facility] 09-30-2023 02:09-0400 Respiratory rate 20 /min Ritesh Ivana [facility] 09-30-2023 02:09-0400 SaO2% (BldA) [Mass fraction] 98 % Ritesh Ivana [facility] 09-30-2023 02:09-0400 Systolic blood pressure 149 mm[Hg] Ritesh Ivana [facility] 09-30-2023 01:00-0400 Diastolic blood pressure 82 mm[Hg] Ritesh Ivana [facility] 09-30-2023 01:00-0400 Heart rate 118 /min Ritesh Ivana [facility] 09-30-2023 01:00-0400 Mean blood pressure 104 mm[Hg] Ritesh Ivana [facility] 09-30-2023 01:00-0400 SaO2% (BldA) [Mass fraction] 99 % Ritesh Ivana [facility] 09-30-2023 01:00-0400 Systolic blood pressure 147 mm[Hg] Ritesh Ivana [facility] 09-29-2023 23:40-0400 Body temperature 97.7 [degF] Ritesh Ivana [facility] 09-29-2023 23:40-0400 Diastolic blood pressure 92 mm[Hg] Ritesh Ivana [facility] 09-29-2023 23:40-0400 Heart rate 139 /min Ritesh Ivana [facility] 09-29-2023 23:40-0400 Respiratory rate 20 /min Ritesh Ivana [facility] 09-29-2023 23:40-0400 SaO2% (BldA) [Mass fraction] 100 % Ritesh Ivana [facility] 09-29-2023 23:40-0400 Systolic blood pressure 144 mm[Hg] Ritesh Ivana [facility] 09-26-2023 18:00-0400 Heart rate 119 /min Konstantin Warde [facility] 09-26-2023 18:00-0400 SaO2% (BldA) [Mass fraction] 96 % Konstantin Zohaib [facility] 09-26-2023 17:30-0400 Diastolic blood pressure 124 mm[Hg] Konstantin Zohaib [facility] 09-26-2023 17:30-0400 Heart rate 105 /min Konstantin Zohaib [facility] 09-26-2023 17:30-0400 Mean blood pressure 129 mm[Hg] Konstantin Zohaib [facility] 09-26-2023 17:30-0400 SaO2% (BldA) [Mass fraction] 100 % Konstantin Zohaib [facility] 09-26-2023 17:30-0400 Systolic blood pressure 139 mm[Hg] Konstantin Zohaib [facility] 09-26-2023 16:48-0400 Diastolic blood pressure 82 mm[Hg] Konstantin Zohaib [facility] 09-26-2023 16:48-0400 Heart rate 126 /min Konstantin Zohaib [facility] 09-26-2023 16:48-0400 Mean blood pressure 101 mm[Hg] Konstantin Warde [facility] 09-26-2023 16:48-0400 Respiratory rate 18 /min Konstantin Warde [facility] 09-26-2023 16:48-0400 SaO2% (BldA) [Mass fraction] 100 % Konstantin Zohaib [facility] 09-26-2023 16:48-0400 Systolic blood pressure 139 mm[Hg] Konstantin Zohaib [facility] 09-26-2023 16:30-0400 Diastolic blood pressure 96 mm[Hg] Konstantin Zohaib [facility] 09-26-2023 16:30-0400 Mean blood pressure 105 mm[Hg] Konstantin Warde [facility] 09-26-2023 16:30-0400 Respiratory rate 18 /min Konstantin Warde [facility] 09-26-2023 16:30-0400 Systolic blood pressure 122 mm[Hg] Konstantin Warde [facility] 09-26-2023 14:45-0400 Respiratory rate 18 /min Konstantin Warde [facility] 09-26-2023 14:13-0400 Body temperature 98.6 [degF] Konstantin Zohaib [facility] 07-31-2023 18:01-0500 Diastolic blood pressure 87 mm[Hg] Jignesh Dumont [facility] 07-31-2023 18:01-0500 Heart rate 121 /min Jignesh Dumont [facility] 07-31-2023 18:01-0500 Mean blood pressure 99 mm[Hg] Jignesh Tim [facility] 07-31-2023 18:01-0500 Respiratory rate 16 /min Jignesh Tim [facility] 07-31-2023 18:01-0500 SaO2% (BldA) [Mass fraction] 99 % Jignesh Tim [facility] 07-31-2023 18:01-0500 Systolic blood pressure 123 mm[Hg] Jignesh Tim [facility] 07-31-2023 17:00-0500 Diastolic blood pressure 77 mm[Hg] Jignesh Tim [facility] 07-31-2023 17:00-0500 Heart rate 96 /min Jignesh Tim [facility] 07-31-2023 17:00-0500 Mean blood pressure 92 mm[Hg] Jignesh Tim [facility] 07-31-2023 17:00-0500 Systolic blood pressure 122 mm[Hg] Jignesh Tim [facility] 07-31-2023 16:07-0500 Diastolic blood pressure 90 mm[Hg] Jignesh Itm [facility] 07-31-2023 16:07-0500 Heart rate 117 /min Jignesh Tim [facility] 07-31-2023 16:07-0500 Mean blood pressure 105 mm[Hg] Jignesh Tim [facility] 07-31-2023 16:07-0500 Respiratory rate 19 /min Jignesh Tim [facility] 07-31-2023 16:07-0500 SaO2% (BldA) [Mass fraction] 100 % Jignesh Tim [facility] 07-31-2023 16:07-0500 Systolic blood pressure 135 mm[Hg] Jignesh Dumont [facility] 07-31-2023 16:06-0500 Respiratory rate 18 /min Jignesh Dumont [facility] 07-31-2023 15:34-0500 Body temperature 97.88 [degF] Jignesh Dumont [facility] 07-31-2023 15:34-0500 Heart rate 136 /min Jignesh Dumont [facility] 07-31-2023 15:34-0500 Respiratory rate 18 /min Jignesh Dumont [facility] 07-19-2023 12:40-0500 Body height 165.1 cm Jennifer Duran Other [facility] Other 04-30-2023 18:19-0500 Diastolic blood pressure 82 mm[Hg] DO Jennifer Duran Work Phone: [facility] 04-30-2023 18:19-0500 Heart rate 128 /min DO Jennifer Duran Work Phone: [facility] 04-30-2023 18:19-0500 Respiratory rate 18 /min DO Jennifer Duran Work Phone: [facility] 04-30-2023 18:19-0500 SaO2% (BldA) [Mass fraction] 99 % DO Jennifer Duran Work Phone: [facility] 04-30-2023 18:19-0500 Systolic blood pressure 116 mm[Hg] DO Jennifer Duran Work Phone: [facility] 04-30-2023 16:43-0500 Body height 165.1 cm DO Jennifer Duran Work Phone: [facility] 04-30-2023 16:43-0500 Body temperature 98.1 [degF] DO Jennifer Duran Work Phone: [facility] 04-30-2023 16:43-0500 Body weight 62.3 kg DO Jennifer Duran Work Phone: [facility] 04-24-2023 15:51-0500 Diastolic blood pressure 81 mm[Hg] Jignesh Tim [facility] 04-24-2023 15:51-0500 Heart rate 98 /min Jignesh Tim [facility] 04-24-2023 15:51-0500 Mean blood pressure 94 mm[Hg] Jignesh Tim [facility] 04-24-2023 15:51-0500 Respiratory rate 17 /min Jignesh Tim [facility] 04-24-2023 15:51-0500 SaO2% (BldA) [Mass fraction] 99 % Jignesh Tim [facility] 04-24-2023 15:51-0500 Systolic blood pressure 120 mm[Hg] Jignesh Tim [facility] 04-24-2023 15:00-0500 Diastolic blood pressure 72 mm[Hg] Jignesh Tim [facility] 04-24-2023 15:00-0500 Heart rate 85 /min Jignesh Tim [facility] 04-24-2023 15:00-0500 Mean blood pressure 87 mm[Hg] Jignesh Tim [facility] 04-24-2023 15:00-0500 Respiratory rate 16 /min Jignesh Tim [facility] 04-24-2023 15:00-0500 SaO2% (BldA) [Mass fraction] 96 % Jignesh Tim [facility] 11-12-2023 15:00-0500 Systolic blood pressure 117 mm[Hg] Jignesh Dumont [facility] 04-24-2023 14:00-0500 Diastolic blood pressure 88 mm[Hg] Jignesh Tim [facility] 04-24-2023 14:00-0500 Heart rate 99 /min Jignesh Dumont [facility] 04-24-2023 14:00-0500 Mean blood pressure 100 mm[Hg] Jignesh Dumont [facility] 04-24-2023 14:00-0500 Respiratory rate 18 /min Jignesh Dumont [facility] 04-24-2023 14:00-0500 SaO2% (BldA) [Mass fraction] 97 % Jignesh Dumont [facility] 04-24-2023 14:00-0500 Systolic blood pressure 124 mm[Hg] Jignesh Dumont [facility] 04-24-2023 13:29-0500 Body temperature 99.14 [degF] Jignesh Dumont [facility] 04-24-2023 13:29-0500 Heart rate 118 /min Jignesh Dumont [facility] 04-03-2023 00:20-0400 Diastolic blood pressure 70 mm[Hg] DO Jennifer Duran Work Phone: [facility] 04-03-2023 00:20-0400 Heart rate 80 /min DO Jennifer Duran Work Phone: [facility] 04-03-2023 00:20-0400 SaO2% (BldA) [Mass fraction] 98 % DO Jennifer Duran Work Phone: [facility] 04-03-2023 00:20-0400 Systolic blood pressure 122 mm[Hg] DO Jennifer Duran Work Phone: [facility] 04-02-2023 21:48-0400 Diastolic blood pressure 75 mm[Hg] DO Jennifer Girivelisse Work Phone: [facility] 04-02-2023 21:48-0400 Heart rate 90 /min DO Jennifer Girvin Work Phone: [facility] 04-02-2023 21:48-0400 Respiratory rate 20 /min DO Jennifer Duran Work Phone: [facility] 04-02-2023 21:48-0400 SaO2% (BldA) [Mass fraction] 98 % DO Jennifer Duran Work Phone: [facility] 04-02-2023 21:48-0400 Systolic blood pressure 109 mm[Hg] DO Jennifer Girivelisse Work Phone: [facility] 04-02-2023 20:23-0400 Body height 165.1 cm DO Jennifer Duran Work Phone: [facility] 04-02-2023 20:23-0400 Body temperature 98.2 [degF] DO Jennifer Duran Work Phone: [facility] 04-02-2023 20:23-0400 Body weight 81.64 kg DO Jennifer Girivelisse Work Phone: [facility] 03-29-2023 16:11-0400 Body temperature 97.8 [degF] DO Jennifer Duran Work Phone: [facility] 03-29-2023 16:11-0400 Diastolic blood pressure 79 mm[Hg] DO Jennifer Girivelisse Work Phone: [facility] 03-29-2023 16:11-0400 Heart rate 104 /min DO Jennifer Girivelisse Work Phone: [facility] 03-29-2023 16:11-0400 Respiratory rate 16 /min DO Jennifer Girivelisse Work Phone: [facility] 03-29-2023 16:11-0400 SaO2% (BldA) [Mass fraction] 98 % DO Jennifer Duran Work Phone: [facility] 03-29-2023 16:11-0400 Systolic blood pressure 123 mm[Hg] DO Jennifer Girivelisse Work Phone: [facility] 03-29-2023 06:35-0400 Body height 165.1 cm DO Jennifer Girivelisse Work Phone: [facility] 03-29-2023 06:35-0400 Body weight 87.5 kg DO Jennifer Girivelisse Work Phone: [facility] 03-29-2023 05:41-0400 Diastolic blood pressure 85 mm[Hg] DO Jennifer Duran Work Phone: [facility] 03-29-2023 05:41-0400 Heart rate 110 /min DO Jennifer Duran Work Phone: [facility] 03-29-2023 05:41-0400 Respiratory rate 18 /min DO Jennifer Duran Work Phone: [facility] 03-29-2023 05:41-0400 SaO2% (BldA) [Mass fraction] 100 % DO Jennifer Duran Work Phone: [facility] 03-29-2023 05:41-0400 Systolic blood pressure 160 mm[Hg] DO Jennifer Duran Work Phone: [facility] 03-29-2023 01:39-0400 Body height 165.1 cm DO Jennifer Duran Work Phone: [facility] 03-29-2023 01:39-0400 Body temperature 97.2 [degF] DO Jennifer Girivelisse Work Phone: [facility] 03-29-2023 01:39-0400 Body weight 87 kg DO Jennifer Girivelisse Work Phone: [facility] 02-06-2023 04:00-0400 Diastolic blood pressure 74 mm[Hg] DO Jennifer Girivelisse Work Phone: [facility] 02-06-2023 04:00-0400 Heart rate 79 /min DO Jennifer Duran Work Phone: [facility] 02-06-2023 04:00-0400 Respiratory rate 15 /min DO Jennifer Duran Work Phone: [facility] 02-06-2023 04:00-0400 SaO2% (BldA) [Mass fraction] 99 % DO Jennifer Duran Work Phone: [facility] 02-06-2023 04:00-0400 Systolic blood pressure 119 mm[Hg] DO Jennifer Duran Work Phone: [facility] 02-05-2023 23:41-0400 Body height 165.1 cm DO Jennifer Duran Work Phone: [facility] 02-05-2023 23:41-0400 Body temperature 98 [degF] DO Jennifer Duran Work Phone: [facility] 02-05-2023 23:41-0400 Body weight 81.64 kg DO Jennifer Duran Work Phone: [facility] 01-12-2023 14:40-0400 Body height 165.1 cm Jennifer uDran Other [facility] Other 01-12-2023 14:40-0400 Body mass index (BMI) [Ratio] 33.44 kg/m2 Jennifer Duran Other [employer] Other 01-12-2023 14:40-0400 Body temperature 99.5 [degF] Jennifer Duran Other [employer] Other 01-12-2023 14:40-0400 Body weight 91.17 kg Jennifer Duran Other [facility] Other 01-12-2023 14:40-0400 Diastolic blood pressure 78 mm[Hg] Jennifer Kendallivelisse Other [employer] Other 01-12-2023 14:40-0400 Respiratory rate 18 /min Jennifer Duran Other [employer] Other 01-12-2023 14:40-0400 SaO2% (BldA) [Mass fraction] 97 % Jennifer Duran Other [employer] Other 01-12-2023 14:40-0400 Systolic blood pressure 110 mm[Hg] Jennifer Duran Other [employer] Other 10-11-2022 16:20-0400 Body height 165.1 cm Jennifer Duran Other [employer] Other 07-12-2022 16:20-0500 Body height 165.1 cm Jennifer Duran Other [employer] Other 07-12-2022 16:20-0500 Body mass index (BMI) [Ratio] 31.2 kg/m2 Jennifer Duran Other [employer] Other 07-12-2022 16:20-0500 Body temperature 97.2 [degF] Jennifer Duran Other [employer] Other 07-12-2022 16:20-0500 Body weight 85.05 kg Jennifer Duran Other [employer] Other 07-12-2022 16:20-0500 Diastolic blood pressure 74 mm[Hg] Jennifer Duran Other [employer] Other 07-12-2022 16:20-0500 Respiratory rate 18 /min Jennifer Duran Other [employer] Other 07-12-2022 16:20-0500 SaO2% (BldA) [Mass fraction] 99 % Jennifer Duran Other [facility] Other 07-12-2022 16:20-0500 Systolic blood pressure 106 mm[Hg] Jennifer Duran Other [employer] Other 04-28-2022 04:00-0500 Diastolic blood pressure 70 mm[Hg] DO Jennifer Duran Work Phone: [facility] 04-28-2022 04:00-0500 Heart rate 81 /min DO Jennifer Duran Work Phone: [facility] 04-28-2022 04:00-0500 SaO2% (BldA) [Mass fraction] 96 % DO Jennifer Duran Work Phone: [facility] 04-28-2022 04:00-0500 Systolic blood pressure 110 mm[Hg] DO Jennifer Duran Work Phone: [facility] 04-28-2022 03:56-0500 Body height 165.1 cm DO Jennifer Duran Work Phone: [facility] 04-28-2022 03:56-0500 Body weight 80 kg DO Jennifer Duran Work Phone: [facility] 04-28-2022 03:56-0500 Respiratory rate 18 /min DO Jennifer Duran Work Phone: [facility] 04-28-2022 00:13-0500 Body temperature 97.2 [degF] DO Jennifer Duran Work Phone: [facility] 04-12-2022 15:40-0400 Body height 165.1 cm Jennifer Duran Other [employer] Other 04-12-2022 15:40-0400 Body mass index (BMI) [Ratio] 30.37 kg/m2 Jennifer Duran Other [employer] Other 04-12-2022 15:40-0400 Body temperature 98.8 [degF] Jennifer Duran Other [employer] Other 04-12-2022 15:40-0400 Body weight 82.78 kg Jennifer Duran Other [employer] Other 04-12-2022 15:40-0400 Diastolic blood pressure 76 mm[Hg] Jennifer Duran Other [employer] Other 04-12-2022 15:40-0400 Respiratory rate 18 /min Jennifer Duran Other [employer] Other 04-12-2022 15:40-0400 SaO2% (BldA) [Mass fraction] 98 % Jennifer Duran Other [employer] Other 04-12-2022 15:40-0400 Systolic blood pressure 110 mm[Hg] Jennifer Duran Other [employer] Other 04-09-2022 13:32-0400 Body temperature 97.59 [degF] Chair Lei Work Phone: [facility] 04-09-2022 13:32-0400 Diastolic blood pressure 64 mm[Hg] Chair Hialeah Work Phone: [facility] 04-09-2022 13:32-0400 Heart rate 114 /min Chair [place] Work Phone: [facility] 04-09-2022 13:32-0400 Respiratory rate 18 /min Chair [place] Work Phone: [facility] 04-09-2022 13:32-0400 SaO2% (BldA) [Mass fraction] 97 % Chair [place] Work Phone: [facility] 04-09-2022 13:32-0400 Systolic blood pressure 116 mm[Hg] Chair Lei Work Phone: [facility] 03-26-2022 13:54-0400 Body temperature 97.9 [degF] Chair [place] Work Phone: [facility] 03-26-2022 13:54-0400 Diastolic blood pressure 75 mm[Hg] Chair [place]ial[place] Work Phone: [facility] 03-26-2022 13:54-0400 Heart rate 82 /min Chair [place] Work Phone: [facility] 03-26-2022 13:54-0400 Respiratory rate 18 /min Chair Lei Work Phone: [facility] 03-26-2022 13:54-0400 SaO2% (BldA) [Mass fraction] 100 % Chair [place] Work Phone: [facility] 03-26-2022 13:54-0400 Systolic blood pressure 106 mm[Hg] Chair [place] Work Phone: [facility] 03-10-2022 13:54-0400 Body height 165.1 cm Madyson Ni APRN.[employer] Work Phone: [facility] 03-10-2022 13:54-0400 Body temperature 97.9 [degF] Madyson Ni APRN.[employer] Work Phone: [facility] 03-10-2022 13:54-0400 Body weight 83.37 kg Madyson Ni APRN.[employer] Work Phone: [facility] 03-10-2022 13:54-0400 Diastolic blood pressure 75 mm[Hg] Madyson Ni APRN.[employer] Work Phone: [facility] 03-10-2022 13:54-0400 Heart rate 95 /min Madyson Ni APRN.[employer] Work Phone: [facility] 03-10-2022 13:54-0400 Respiratory rate 16 /min Madyson Ni APRN.[employer] Work Phone: [facility] 03-10-2022 13:54-0400 SaO2% (BldA) [Mass fraction] 100 % Madyson Ni [employer]ER.[employer] Work Phone: [facility] 03-10-2022 13:54-0400 Systolic blood pressure 130 mm[Hg] Madyson Ni [employer] TROUBL[employer]ER.[employer] Work Phone: [facility] 12-04-2021 12:49-0400 Blood Pressure Location Yamilka Orzech [facility] 12-04-2021 12:49-0400 Body temperature 98.42 [degF] Yamilka Orzech [facility] 12-04-2021 12:49-0400 Diastolic blood pressure 82 mm[Hg] Yamilka Orzech [facility] 12-04-2021 12:49-0400 Heart rate 110 /min Yamilka Orzech [facility] 12-04-2021 12:49-0400 SaO2% (BldA) [Mass fraction] 99 % Yamilka Orzech [facility] 12-04-2021 12:49-0400 Systolic blood pressure 126 mm[Hg] Yamilka Orzech [facility] 10-16-2021 09:10-0400 Body height 165.1 cm Jennifer Duran Other [employer] Other 09-14-2021 19:31-0400 Diastolic blood pressure 82 mm[Hg] DO Jennifer Duran Work Phone: [facility] 09-14-2021 19:31-0400 Heart rate 87 /min DO Jennifer Duran Work Phone: [facility] 09-14-2021 19:31-0400 Respiratory rate 18 /min DO Jennifer Duran Work Phone: [facility] 09-14-2021 19:31-0400 SaO2% (BldA) [Mass fraction] 99 % DO Jennifer Duran Work Phone: [facility] 09-14-2021 19:31-0400 Systolic blood pressure 126 mm[Hg] DO Jennifer Duran Work Phone: [facility] 09-14-2021 14:45-0400 Body height 165.1 cm DO Jennifer Duran Work Phone: [facility] 09-14-2021 14:45-0400 Body mass index (BMI) [Ratio] 30.7 kg/m2 DO Jennifer Duran Work Phone: [facility] 09-14-2021 14:45-0400 Body temperature 98 [degF] DO Jennifer Duran Work Phone: [facility] 09-14-2021 14:45-0400 Body weight 83.91 kg DO Jennifer Duran Work Phone: [facility] 04-21-2021 16:20-0500 Body height 165.1 cm Jennifer Duran Other [facility] Other 04-21-2021 16:20-0500 Body mass index (BMI) [Ratio] 32.28 kg/m2 Jennifer Duran Other [facility] Other 04-21-2021 16:20-0500 Body temperature 98.3 [degF] Jennifer Duran Other [facility] Other 04-21-2021 16:20-0500 Body weight 88 kg Jennifer Duran Other [facility] Other 04-21-2021 16:20-0500 Diastolic blood pressure 82 mm[Hg] Jennifer Duran Other [employer] Other 04-21-2021 16:20-0500 SaO2% (BldA) [Mass fraction] 98 % Jennifer Duran Other [employer] Other 04-21-2021 16:20-0500 Systolic blood pressure 124 mm[Hg] Jennifer Duran Other [employer] Other Encounters Encounter Date Encounter Type Care Provider Facility Start: 06-27-2024 End: 06-28-2024 Emergency department patient visit DO Jordyn Chi randygianna [place] [place] Start: 06-27-2024 End: 06-27-2024 Emergency department patient visit Randee Richardson MD Work Phone: [facility] Comment on above: Abdominal pain, righ t lower quadrant (Primary Dx) Start: 06-24-2024 End: 06-25-2024 Emergency department patient visit Ritesh DebbieEbenezer Heath [facility] Start: 06-11-2024 Emergency department patient visit None Provider Facility:[facility] Start: 06-11-2024 End: 06-11-2024 Telephone encounter Kendra BACON Work Phone: [facility] Gynecology Oncology, A Department of [facility] Comment on above: Appointment Start: 06-11-2024 End: 06-11-2024 ambulatory ROBBIE ARRIAZA [facility] Start: 06-10-2024 End: 06-10-2024 ambulatory NO PCP NO PCP [facility] Start: 06-09-2024 End: 06-10-2024 Emergency department patient visit NO PCP NO PCP [facility] Start: 06-09-2024 End: 06-09-2024 [facility] Comment on above: abnormal CT Post-op Problem; Abd ominal Pain Start: 06-08-2024 Emergency department patient visit None Provider Facility:[facility] Start: 06-05-2024 End: 06-05-2024 Emergency department patient visit NO PCP NO PCP [facility] Start: 05-27-2024 End: 05-28-2024 Emergency department patient visit ROSE [facility] Start: 04-09-2024 End: 04-10-2024 Salvador Stewart RN [facility] Gynecology Oncology Comment on above: Endometriosis Start: 04-06-2024 End: 04-06-2024 Evaluation and management of inpatient NO PCP NO PCP [facility] Start: 04-05-2024 End: 04-05-2024 Emergency department patient visit NO PCP NO PCP [facility] Start: 04-03-2024 End: 04-03-2024 Admission to [facility] Phone Call Provider [facility]-Admission [facility] On [facility] Start: 04-03-2024 End: 04-03-2024 Evaluation and management of inpatient NO PCP NO PCP [facility] Start: 03-30-2024 Patient encounter status Adiel Aparicio MD Work Phone: [facility] Start: 03-28-2024 End: 03-28-2024 Office outpatient visit 40 minutes Adiel Aparicio MD Work Phone: [facility] Comment on above: Endometriosis (Prima ry Dx); Preop testing Start: 03-28-2024 End: 03-28-2024 Patient encounter status Adiel Aparicio MD Work Phone: [facility] Start: 03-28-2024 Encounter for other preprocedural examination ADIEL APARICIO [facility] Start: 03-28-2024 End: 03-28-2024 Orders Only Adiel Aparicio MD Work Phone: [facility] Comment on above: Endometriosis (Prima ry Dx); Preop testing Start: 03-23-2024 End: 03-23-[address] [facility] Work Phone: Start: 03-23-2024 End: 03-23-2024 Patient encounter procedure [facility] Work Phone: Start: 03-07-2024 End: 03-07-2024 Emergency department patient visit NO PCP NO PCP [facility] Start: 03-03-2024 End: 03-03-2024 Emergency department patient visit Davi Marie DO Work Phone: [facility] Start: 02-24-2024 End: 02-24-2024 Emergency department patient visit Ashley Delcid MD Work Phone: [facility] Start: 02-16-2024 End: 02-16-2024 Emergency department patient visit Jennifer Moore MD Work Phone: [facility] Start: 02-13-2024 End: 02-13-2024 Emergency department patient visit Ritesh Heath [facility] Start: 01-27-2024 End: 01-28-2024 Emergency [facility] Start: 01-27-2024 End: 01-27-2024 Emergency department patient visit NO PCP NO PCP [facility] Start: 01-22-2024 End: 01-22-2024 Emergency department patient visit Eren Camejo DO Work Phone: [facility] ED Comment on above: Cyst of left ovary ( Primary Dx) Start: 01-19-2024 End: 01-19-2024 ambulatory DO Jennifer Duran Work Phone: [facility] Work Phone: Start: 01-19-2024 End: 01-19-2024 Patient encounter procedure DO Jennifer Duran Work Phone: [facility] [place] Work Phone: Start: 12-07-2023 ambulatory DO Jennifer roberts Work Phone: [facility] Work Phone: Start: 12-07-2023 Non-patient / Non-visit DO Ponce connie Wilber Work Phone: [facility] Work Phone: Start: 11-25-2023 End: 11-25-2023 Patient encounter procedure DO Jennifer Duran Work Phone: [facility] [place] Work Phone: Start: 11-25-2023 End: 11-25-2023 ambulatory DO Jennifer Duran Work Phone: [facility] Work Phone: Start: 11-23-2023 End: 11-23-2023 ambulatory [facility] Start: 11-09-2023 End: 11-09-2023 ambulatory [facility] Start: 11-08-2023 End: 11-08-2023 Emergency department patient visit DO Jennifer Duran Work Phone: [facility]Emergency [facility] Work Phone: Start: 11-08-2023 End: 11-08-2023 Emergency department patient visit Eren Camejo DO Work Phone: [facility] ED Comment on above: Toothache (Primary D x) Start: 10-25-2023 End: 10-26-2023 Emergency department patient visit [facility] Start: 10-25-2023 End: 10-26-2023 Emergency department patient visit [place] Dottie [facility] Start: 10-25-2023 End: 10-25-2023 Emergency department patient visit NO PCP NO PCP [facility] Start: 10-25-2023 End: 10-26-2023 Emergency department patient visit [facility] Start: 10-19-2023 End: 10-19-2023 ambulatory TARUN BRADEN Not Available Start: 10-18-2023 End: 10-18-2023 ambulatory [facility] Work Phone: Start: 10-18-2023 End: 10-18-2023 Patient encounter procedure [facility] [place] Work Phone: Start: 09-29-2023 End: 09-30-2023 Emergency department patient visit Ritesh LewisEbenezer Ivana [facility] Start: 09-26-2023 End: 09-26-2023 Emergency department patient visit Konstantin Penny [facility] Start: 09-06-2023 End: 09-06-2023 Emergency department patient visit DESTINI [facility] Start: 07-31-2023 End: 07-31-2023 Emergency department patient visit Jignesh Dumont [facility] Start: 07-28-2023 End: 07-28-2023 ambulatory PHYSICIAN NO [facility] Work Phone: Start: 07-28-2023 End: 07-28-2023 Patient encounter procedure PHYSICIAN NO [facility] Physician [facility] [place] Work Phone: Start: 07-19-2023 End: 07-19-2023 ambulatory Jennifer Duran Other [employer] Other Start: 07-19-2023 Telephone encounter Jennifer Duran [facility] [place] Start: 06-22-2023 End: 06-23-2023 Emergency department patient visit EVGENY SEN MD Facility:[facility] Start: 06-07-2023 End: 06-07-2023 ambulatory Jennifer Duran Other [employer] Other Start: 06-07-2023 Telephone encounter Jennifer Duran [facility] [place] Start: 05-30-2023 End: 05-30-2023 Emergency department patient visit JACY Leos LES [facility] Start: 05-16-2023 End: 05-16-2023 ambulatory Jennifer Duran Other [employer] Other Start: 05-16-2023 Telephone encounter Jennifer Duran [facility] [place] Start: 04-30-2023 End: 04-30-2023 Emergency department patient visit DO Jennifer Duran Work Phone: [facility]gency [facility] Work Phone: Start: 04-24-2023 End: 04-24-2023 Emergency department patient visit Jignesh Dumont [facility] Start: 04-18-2023 End: 04-18-2023 ambulatory Jennifer Duran Other [employer] Other Start: 04-18-2023 Telephone encounter Jennifer Duran [facility] [place] Start: 04-11-2023 End: 04-11-2023 ambulatory eJnnifer Duran Other [employer] Other Start: 04-11-2023 Telephone encounter Jennifer Duran [facility] [place] Start: 04-04-2023 End: 04-04-2023 ambulatory Jennifer Duran Other [employer] Other Start: 04-04-2023 Telephone encounter Jennifer Duran [facility] [place] Start: 04-02-2023 End: 04-03-2023 Emergency department patient visit DO Jennifer Duran Work Phone: [facility] Work Phone: Start: 04-01-2023 End: 04-01-2023 ambulatory Jennifer Duran Other [employer] Other Start: 04-01-2023 Telephone encounter Jennifer Duran [facility] [place] Start: 03-29-2023 Telephone encounter Jennifer Duran [facility] [place] Start: 03-29-2023 End: 03-29-2023 Evaluation and management of inpatient DO Jennifer Duran Work Phone: [facility] Work Phone: Start: 03-29-2023 End: 03-29-2023 observation encounter DO Jennifer Duran Work Phone: [facility] Work Phone: Start: 03-29-2023 End: 03-29-2023 ambulatory Jennifer Duran [employer] Other Start: 03-13-2023 End: 03-13-2023 ambulatory DO Jennifer Duran Work Phone: [facility] Work Phone: Start: 03-13-2023 End: 03-13-2023 Patient encounter procedure DO Jennifer Duran Work Phone: [facility]-Flu Vaccine Start: 03-02-2023 End: 03-02-2023 ambulatory Jennifer Duran Other [employer] Other Start: 03-02-2023 Telephone encounter Jennifer Duran [facility] [place] Start: 02-05-2023 End: 02-06-2023 Emergency department patient visit DO Jennifer Wilber Work Phone: [facility] Work Phone: Start: 01-12-2023 End: 01-12-2023 ambulatory Jennifer Duran Other [employer] Other Start: 01-12-2023 Office outpatient vi sit 15 minutes Jennifer Duran [facility] [place] Start: 12-09-2022 End: 12-09-2022 ambulatory Jennifer Duran Other [employer] Other Start: 12-09-2022 Telephone encounter Jennifer Duran [facility] [place] Start: 10-11-2022 End: 10-11-2022 ambulatory Jennifer Duran Other [employer] Other Start: 10-11-2022 Telephone encounter Jennifer Wilber [facility] [place] Start: 09-22-2022 End: 09-22-2022 ambulatory Jennifer Kendallivelisse Other [employer] Other Start: 09-22-2022 Telephone encounter Jennifer Duran [facility] [place] Start: 07-28-2022 End: 07-28-2022 ambulatory BELKIS SANDOVAL Facility:[facility] Start: 07-12-2022 End: 07-12-2022 ambulatory Jennifer Duran Other [employer] Other Start: 07-12-2022 Office outpatient vi sit 15 minutes Jennifer Duran [facility] [place] Start: 07-12-2022 Telephone encounter Jennifer Duran [facility] [place] Start: 06-02-2022 End: 06-02-2022 ambulatory Jennifer Kendallivelisse Other [employer] Other Start: 06-02-2022 Telephone encounter Jennifer Wilber [facility] [place] Start: 05-04-2022 End: 05-04-2022 ambulatory Jennifer Kendallivelisse Other [employer] Other Start: 05-04-2022 Telephone encounter Jennifer Duran [facility] [place] Start: 04-30-2022 Telephone encounter Madyson arechiga APRN.HEAD OF [employer]ES [employer] Work Phone: Hematology/Oncology Comment on above: Lab Orders Start: 04-28-2022 Evaluation and management of inpatient DO Jennifer Duran Work Phone: [facility] Start: 04-28-2022 observation encounter DO Jennifer Enochivelisse Work Phone: [facility] Work Phone: Start: 04-12-2022 End: 04-12-2022 ambulatory Jennifer Duran Other [employer] Other Start: 04-12-2022 Office outpatient vi sit 15 minutes Jennifer Duran [facility] Start: 04-12-2022 Telephone encounter Jennifer Duran [facility] Start: 04-09-2022 End: 04-10-2022 ambulatory Stephenie Suh 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 Comment on above: Art Therapy Iron deficiency anem ia due to chronic blood loss (Primary Dx); Malabsorption of iron; Cyst of left ovary Start: 03-26-2022 End: 03-27-2022 ambulatory MADYSON NI Facility:[facility] Start: 03-26-2022 End: 03-26-2022 ambulatory Chair Anton España Work Phone: Hematology/Oncology Comment on above: Iron deficiency anem ia due to chronic blood loss (Primary Dx); Malabsorption of iron; Cyst of left ovary Start: 03-15-2022 Telephone encounter Sharon Saavedra [facility] ematology/Oncology Comment on above: Social Work Services Start: 03-10-2022 End: 03-11-2022 ambulatory Madyson Ni [employer] TROUBL[employer]HO[employer]ER.HEAD OF SAL[employer] Work Phone: Hematology/Oncology Comment on above: Iron deficiency anem ia due to chronic blood loss (Primary Dx); Malabsorption of iron Start: 03-10-2022 End: 03-10-2022 Patient encounter procedure Madyson Ni APRN.HEAD [employer] Work Phone: [facility] Start: 02-18-2022 Telephone encounter Madyson arechiga SWITCHBOARD TROUBLESHOOTER.HEAD [employer] SAL[employer] Work Phone: Hematology/Oncology Comment on above: Lab Orders Start: 02-16-2022 End: 02-16-2022 ambulatory Jennifer Duran Other [employer] Other Start: 02-16-2022 Telephone encounter Jennifer Duran [facility] Start: 02-12-2022 End: 02-12-2022 Patient encounter procedure DO Jennifer Duran Work Phone: [facility] [place] Start: 01-07-2022 End: 01-07-2022 ambulatory Jennifer Duran Other [employer] Other Start: 01-07-2022 Telephone encounter Jennifer Duran [facility] [place] Start: 12-04-2021 End: 12-04-2021 Patient encounter procedure Yamilka X Bj [facility] Start: 10-29-2021 End: 10-29-2021 ambulatory Jennifer Duran Other [employer] Other Start: 10-29-2021 Telephone encounter Jennifer Duran [facility] [place] Start: 10-16-2021 End: 10-16-2021 ambulatory Jennifer Duran Other [employer] Other Start: 10-16-2021 Office outpatient vi sit 15 minutes Jennifer Duran [facility] [place] Start: 09-21-2021 End: 09-21-2021 ambulatory Jennifer Duran Other [employer] Other Start: 09-21-2021 Telephone encounter Jennifer Duran [facility] [place] Start: 09-14-2021 End: 09-14-2021 Emergency department patient visit DO Jennifer Duran Work Phone: [facility] Start: 08-18-2021 End: 08-18-2021 ambulatory Jennifer Duran Other [employer] Other Start: 08-18-2021 Telephone encounter Jennifer Duran [facility] [place] Start: 08-11-2021 End: 08-11-2021 ambulatory Jennifer Duran Other [employer] Other Start: 08-11-2021 Telephone encounter Jennifer Duran [facility] [place] Start: 08-03-2021 End: 08-03-2021 ambulatory Jennifer Duran Other [employer] Other Start: 08-03-2021 Telephone encounter Jennifer Duran [facility] [place] Start: 07-04-2021 End: 07-04-2021 Patient encounter procedure DO Jennifer Duran Work Phone: [facility] [place] Start: 06-04-2021 End: 06-04-2021 ambulatory Jennifer Duran Other [employer] Other Start: 06-04-2021 Telephone encounter Jennifer Duran [facility] [place] Start: 05-18-2021 End: 05-18-2021 ambulatory Jennifer Duran Other [employer] Other Start: 05-18-2021 Telephone encounter Jennifer Duran [facility] [place] Start: 04-21-2021 End: 04-21-2021 ambulatory Jennifer Duran Other [employer] Other Start: 04-21-2021 Encounter for genera l adult medical examination without abnormal findings Jennifer Duran [facility] [place] Start: 04-21-2021 Periodic preventive med est patient 18-39 yrs Jennifer Wilber [facility] Procedures Date Procedure Procedure Detail Performing Clinician Start: 06-27-2024 Comprehensive metabo lic panel Randee Richardson MD Work Phone: Start: 06-27-2024 Urinalysis microscopic only Randee Richardson MD Work Phone: Start: 06-27-2024 Urnls dip stick/tabl et rgnt auto w/o microscopy Randee Richardson MD Work Phone: Start: 03-28-2024 Follow-up visit Follow-up ADIEL APARICIO [...] Adult BMI Screening Adult BMI Screen ing [facility] Start: 06-09-2025 Adult BMI Screening Adult BMI Screen ing [facility] Start: 06-09-2025 Tobacco Screening Tobacco Screening [facility] Start: 04-06-2025 Adult BMI Screening Adult BMI Screen ing [facility] Start: 04-06-2025 Tobacco Screening Tobacco Screening [facility] Start: 04-03-2025 Adult BMI Screening Adult BMI Screen ing [facility] Start: 04-03-2025 Tobacco Screening Tobacco Screening [facility] Start: 03-28-2025 Adult BMI Screening Adult BMI Screen ing [facility] Start: 03-07-2025 Adult BMI Screening Adult BMI Screen ing [facility] Start: 03-07-2025 Tobacco Screening Tobacco Screening [facility] Start: 11-25-2024 Screening for malign ant neoplasm of cervix Pap Smear [facility] Start: 04-20-2024 End: 04-20-2024 Patient encounter procedure 04/20/2024 1:30 PM EST Office Visit [facility] [address] [place] [address] Shanae Frankel PA [address] [place] [address] [facility] Start: 04-06-2024 End: 04-06-2024 Admission to same day surgery center [facility] Comment on above: DAVINCI HYSTERECTOMY SALPINGECTOMY DAVINCI DV5 SALPINGO OOPHORECTOMY Start: 04-06-2024 End: 04-06-2024 DAVINCI DV5 SALPINGO OOPHORECTOMY DAVINCI DV5 SALPINGO OOPHORECTOMY endometriosis /pelvic pain 04/06/2024 11:00 AM EDT [facility] Start: 04-06-2024 End: 04-06-2024 DAVINCI HYSTERECTOMY SALPINGECTOMY DAVINCI HYSTERECTOMY SALPINGECTOMY endometriosis /pelvic pain 04/06/2024 11:00 AM EDT [facility] Start: 04-06-2024 End: 04-06-2024 Laparoscopy w/rmvl adnexal structures [facility] Start: 04-06-2024 Subsequent hospital visit by physician 04/06/2024 11:00 AM EDT Hospital Encounter [facility] [place] [id number] Adiel Aparicio MD [address] [place] [address], [address] [place] [address] [facility] Start: 04-03-2024 End: 04-03-2024 Admission to establishment 04/03/2024 3:45 PM EDT Support Visit [facility] On [address] [address] [facility] Start: 02-12-2024 COVID-19 VACCINE ( season) COVID-19 VACCINE ( season) [facility] Start: 02-12-2024 COVID-19 Vaccine ( season) COVID-19 Vaccine ( season) [facility] Start: 02-12-2024 Influenza vaccination [facility] Start: 01-12-2024 Influenza vaccination Flu vaccine (# 1) [facility] Start: 12-07-2023 Patient referral [facility] Work Phone: Start: 03-30-2023 Comprehensive metabo lic 2000 panel - Serum or Plasma [facility] Start: 03-30-2023 [facility] Start: 03-29-2023 [facility] Start: 03-29-2023 Referral to home therapy teacher [facility] Start: 03-29-2023 Hospital admission [facility] Start: 03-29-2023 [facility] Start: 03-29-2023 Computed tomography of abdomen and pelvis with contrast CT abdomen pelvis w con [facility] Start: 03-29-2023 CT Abdomen and Pelvi s W contrast IV [facility] Start: 03-29-2023 Transvaginal echography US transvagi nal [facility] Start: 03-29-2023 US Pelvis transvaginal [facility] Start: 03-29-2023 Pelvic echography US pelvic complete [facility] Start: 03-29-2023 US Pelvis [facility] Start: 02-11-2023 COVID-19 Vaccine () COVID-19 Vaccine () [facility] Start: 02-06-2023 Pelvic echography US pelvic complete [facility] Start: 02-06-2023 US Pelvis [facility] Start: 02-06-2023 Transvaginal echography US transvagi [facility] Start: 02-06-2023 US Pelvis transvaginal [facility] Start: 02-05-2023 Computed tomography of abdomen and pelvis with contrast CT abdomen pelvis w con [facility] Start: 02-05-2023 CT Abdomen and Pelvi s W contrast IV [facility] Start: 05-05-2022 End: 07-05-2022 CBC W Auto Differential panel - Blood CBC + DIFF Lab Routine Iron deficiency anemia due to chronic blood loss Malabsorption of iron Expected: 05/05/2022, Expires: 07/05/2022 [facility] Work Phone: Comment on above: Expected: 05/05/2022 , Expires: 07/05/2022 Start: 05-03-2022 End: 07-03-2022 Comprehensive metabolic 2000 panel - Serum or Plasma COMP METABOLIC PANEL Lab Routine Iron deficiency anemia due to chronic blood loss Expected: 05/03/2022, Expires: 07/03/2022 [facility] Work Phone: Comment on above: Expected: 05/03/2022 , Expires: 07/03/2022 Start: 04-28-2022 Pelvic echography US pelvic complete [facility] Start: 04-28-2022 US Pelvis [facility] Start: 04-28-2022 CT Abdomen and Pelvi s WO contrast [facility] Start: 04-28-2022 CT of abdomen and pe lvis without contrast CT abdomen pelvis wo con [facility] Start: 04-28-2022 Transvaginal echography US transvagi nal [facility] Start: 04-28-2022 US Pelvis transvaginal [facility] Start: 02-23-2022 End: 02-20-2023 CBC W Auto Differential panel - Blood CBC + DIFF Lab Routine Iron deficiency anemia due to chronic blood loss Expected: 02/23/2022 (Approximate), Expires: 02/20/2023 [facility] Work Phone: Comment on above: Expected: 02/23/2022 (Approximate), Expires: 02/20/2023 Start: 02-23-2022 End: 02-20-2023 Cobalamin (Vitamin B12) [Mass/volume] in Serum or Plasma VITAMIN B12 BLOOD Lab Routine Iron deficiency anemia due to chronic blood loss Expected: 02/23/2022 (Approximate), Expires: 02/20/2023 [facility] Work Phone: Comment on above: Expected: 02/23/2022 (Approximate), Expires: 02/20/2023 Start: 02-23-2022 End: 02-20-2023 Comprehensive metabolic 2000 panel - Serum or Plasma COMP METABOLIC PANEL Lab Routine Iron deficiency anemia due to chronic blood loss Expected: 02/23/2022 (Approximate), Expires: 02/20/2023 [facility] Work Phone: Comment on above: Expected: 02/23/2022 (Approximate), Expires: 02/20/2023 Start: 02-23-2022 End: 02-20-2023 Ferritin [Mass/volume] in Serum or Plasma FERRITIN BLD Lab Routine Iron deficiency anemia due to chronic blood loss Expected: 02/23/2022 (Approximate), Expires: 02/20/2023 [facility] Work Phone: Comment on above: Expected: 02/23/2022 (Approximate), Expires: 02/20/2023 Start: 02-23-2022 End: 02-20-2023 Folate [Mass/volume] in Serum or Plasma FOLATE SERUM Lab Routine Iron deficiency anemia due to chronic blood loss Expected: 02/23/2022 (Approximate), Expires: 02/20/2023 [facility] Work Phone: Comment on above: Expected: 02/23/2022 (Approximate), Expires: 02/20/2023 Start: 02-23-2022 End: 02-20-2023 Iron and Iron binding capacity panel - Serum or Plasma IRON + TIBC Lab Routine Iron deficiency anemia due to chronic blood loss Expected: 02/23/2022 (Approximate), Expires: 02/20/2023 [facility] Work Phone: Comment on above: Expected: 02/23/2022 (Approximate), Expires: 02/20/2023 Start: 02-11-2022 Influenza vaccination INFLUENZA (#1) [facility] Start: 06-13-2021 DEPRESSION ASSESSMENT DEPRESSION ASS ESSMENT [facility] Start: 11-30-2020 COVID-19 VACCINE (3 - Booster for Moderna series) COVID-19 VACCINE (3 - Booster for Moderna series) [facility] Start: 08-27-2020 COVID-19 VACCINE (3 - Booster for Moderna series) COVID-19 VACCINE (3 - Booster for Moderna series) [facility] Start: 2017 HPV TESTING HPV TESTING [facility] Start: 2017 Screening for malign ant neoplasm of cervix [facility] Start: 01-11-2008 PAP TESTING PAP TESTING [facility] Start: 01-11-2008 Screening for malign ant neoplasm of cervix [facility] Start: 2006 DTaP,Tdap and Td Vaccines (1 - Tdap) DTaP,Tdap and Td Vaccines (1 - Tdap) [facility] Start: 2006 DTaP/Tdap/Td vaccine (1 - Tdap) DTaP/Tdap/Td vaccine (1 - Tdap) [facility] Start: 2006 Hepatitis B vaccination HEP B VACCINE (1 of 3 - 19+ 3-dose series) [facility] Start: 2006 Hepatitis B vaccine (1 of 3 - 19+ 3-dose series) Hepatitis B vaccine (1 of 3 - 19+ 3-dose series) [facility] Start: 2006 Third diphtheria, tetanus and acellular pertussis (DTaP) vaccination TDAP (ADULT) [facility] Start: 2006 Urine microalbumin profile DTAP,TDAP,TD (1 - Tdap) [facility] Start: 2005 Adult BMI Follow Up Plan Adult BMI Follow Up Plan [facility] Start: 2005 HEPATITIS C SCREENING HEPATITIS C SC REENING [facility] Start: 2005 Hepatitis C screening Hepatitis C sc reen [facility] Start: 2005 HIV SCREENING HIV SCREENING [facility] Start: 2002 HIV screening [facility] Start: 01-11-2000 Varicella vaccine (1 of 2 - 13+ 2-dose series) Varicella vaccine (1 of 2 - 13+ 2-dose series) [facility] Start: 1999 Adult depression screening assessment DEPRESSION SCREENING [facility] Start: 1999 Depression Screen Depression Screen [facility] Start: 01-11-1988 Varicella vaccine (1 of 2 - 2-dose childhood series) Varicella vaccine (1 of 2 - 2-dose childhood series) [facility] Start: 1987 HEPATITIS B (1 of 3 - 3-dose series) HEPATITIS B (1 of 3 - 3-dose series) [facility] Start: 1987 Hepatitis B vaccine (1 of 3 - 3-dose series) Hepatitis B vaccine (1 of 3 - 3-dose series) [facility] Start: 1987 Hepatitis C screening HEPATITI S C VIRUS SCREENING [facility] Start: 1987 Tetanus vaccination TETANUS [facility] CT Sinuses WO contrast [facility] Patient Education [facility] Work Phone: Patient referral [facility] Work Phone: End: 02-16-2024 Standard ECG ECG ECG STAT One Time for 1 Occurrences starting 02/16/2024 until 02/16/2024 [facility] Comment on above: One Time for 1 Occur rences starting 02/16/2024 until 02/16/2024 End: 03-28-2025 Type and screen(includes indirect saw) Type and screen(includes indirect saw) Blood Bank Routine Endometriosis Preop testing 1 Occurrences starting 03/28/2024 until 03/28/2025 [facility] Work Phone: Comment on above: 1 Occurrences starti ng 03/28/2024 until 03/28/2025 [facility] Immunizations Immunization Date Immunization Notes Care Provider Iraj hairston 06-09-2023 influenza, injectable, quadrivalent, contains preservative [facility] 06-09-2023 influenza virus vaccine, unspecified formulation Jennifer Moore MD Work Phone: [facility] 03-13-2023 influenza, injectable, quadrivalent, preservative free Jennifer Duran Other [facility] 03-31-2021 influenza, seasonal, injectable Jennifer Duran Other [facility] 07-02-2020 COVID-19 Vaccine Moderna - Documentation Purposes Only Jennifer Duran Other [facility] 06-04-2020 COVID-19 Vaccine Moderna - Documentation Purposes Only Jennifer Duran Other [facility] 12-10-2008 measles, mumps and rubella virus vaccine Yamilka Lorenzo [facility] NEGATED: Highlighted row has not occurred!03-23-2019 influenza, seasonal, injectable Patient Objection Jennifer Duran Other [facility] Payers Date Payer Category Payer Self-pay [id number] 2020 [facility] Managed Care - Other [facility] [id number]. [id number] 2018 Unknown [id number]. 1.13.159. 2.7.3.848669.315 1987 Unknown [id number] 2.16840.1.772913.3.579. 2.593 1987 Unknown [id number] 2.840.1.605060.3.579. 2.182 1987 Unknown [id number] 2.16840.1.798159.3.579. 2.1259 1987 Unknown [id number] 2.16840.1.204937.3.579. 2.983 1987 Unknown [id number] 2.16.840.1.850253.3.579. 2.983 1987 Unknown [id number] 2.16840.1.537038.3.579. 2.983 1987 Unknown [id number] 2.16840.1.223306.3.579. 2.1286 1987 Unknown [id number] 2.16.840.1.794887.3.579. 2.1285 1987 Unknown [id number] 2.16.840.1.361627.3.579. 2.1285 1987 Unknown [id number] 2.16.840.1.087425.3.579. 2.174 1987 Unknown [id number] 2.16.840.1.995905.3.579. 2. 1987 Unknown [id number] 2.16.840.1.208502.3.579. 2.174 1987 Unknown [id number] 2.16.840.1.845672.3.579. 2. 1987 Unknown [id number] 2.16.840.1.255694.3.579. 2.1285 1987 Unknown [id number] 2.16840.1.391676.3.579. 2.1285 1987 Unknown [id number] 2.16.840.1.907495.3.579. 2.1285 1987 Unknown [id number] 2.16.840.1.625878.3.579. 2.1285 1987 Unknown [id number] 2.16.840.1.662268.3.579. 2.1285 1987 Unknown [id number] 2.16840.1.305128.3.579. 2.1285 1987 Unknown [id number] 2.16.840.1.469718.3.579. 2.1285 1987 Unknown [id number] 2.16.840.1.703752.3.579. 2.1285 1987 Unknown [id number] 2.16.840.1.914450.3.579. 2.1285 1987 Unknown [id number] 2.16.840.1.491403.3.579. 2.1285 1987 Unknown [id number] 2.16.840.1.499100.3.579. 2.1285 1987 Unknown [id number] 2.16.840.1.619317.3.579. 2.1285 1987 Unknown [id number] 2.16.840.1.016710.3.579. 2.1285 1987 Unknown [id number] 2.16.840.1.472778.3.579. 2.1285 1987 Unknown [id number] 2.16.840.1.929051.3.579. 2.1285 1987 Unknown [id number] 2.16.840.1.303692.3.579. 2.1285 1987 Unknown [id number] 2.16.840.1.986831.3.579. 2.1285 1987 Unknown [id number] 2.16.840.1.646228.3.579. 2 1987 Unknown [id number] 2.16.840.1.602065.3.579. 2 1987 Unknown [id number] 2.16.840.1.364163.3.579. 2. 1987 Unknown [id number] 2.16.840.1.211918.3.579. 2. 1987 Unknown [id number] 2.16.840.1.182010.3.579. 2 1987 Unknown [id number] 2.16.840.1.086835.3.579. 2 1987 Unknown [id number] 2.16.840.1.921668.3.579. 2. 1987 Unknown [id number] 2.16.840.1.817754.3.579. 2 1987 Unknown [id number] 2.16.840.1.741942.3.579. 2. 1987 Unknown [id number] 2.16.840.1.931727.3.579. 2.173 1987 Unknown [id number] 2.16.840.1.588360.3.579. 2.727 1959 Unknown [id number] Unknown [id number] Unknown [id number] Unknown [id number] Unknown [id number] 2.16.840.1.278054.3.579. 2.531 Unknown [id number] 2.16.840.1.899262.3.579. 2.531 Unknown [id number] 2.16.840.1.717929.3.579. 2.531 Unknown [id number] 2.16.840.1.506634.3.579. 2.531 Unknown [id number] 2.16.840.1.578743.3.579. 2.531 Social History Date Type Detail Facility Start: 09-14-2021 End: 05-30-2023 Tobacco smoking status NHIS Never smoked tobacco (finding) [facility] Start: 1985 Sex Assigned At Female [facility] Tobacco smoking status Never [facility] Start: 05-30-2023 End: 05-27-[address] Sex [address] Female [facility] Other Start: 04-05-2018 End: 05-30-2023 Tobacco use and exposure Smokeless tobacco non-user [facility] Start: 10-27-2020 End: 06-09-2024 Alcohol intake Current drinker of alcohol (finding) [facility] Start: 04-05-2018 End: 05-25-2023 History SDOH Alcohol Comment socially [facility] Start: 1987 Sex Assigned At Not on file [facility] Start: 02-06-2022 End: 04-09-2022 Exposure to SARS-CoV-2 (event) Not sure [facility] History of tobacco use Passive smoker [facility] Start: 09-05-2023 End: 01-22-2024 Alcohol intake Not Asked [employer] Start: 05-30-2023 End: 05-27-2024 History of Social function [employer] How often to you hav e a drink containing alcohol? Monthly or less [employer] How many standard drinks containing alcohol do you have on a typical day? 1 or 2 [employer] How often do you hav e 6 or more drinks on 1 occasion? Less than monthly [employer] Start: 05-30-2023 Alcohol Comment social [facility] Tobacco smoking stat [facility] Tobacco smoking consumption unknown [facility] Start: 01-14-2015 Sex Female (finding) [facility] Start: 04-03-2024 Alcohol Comment monthly [facility] Start: 06-27-2024 Alcoholic beverage intake Ex-drinker (finding) [employer] [facility] Comment on above: Denies Tobacco smoking status No Smokin g Status Entered [facility] Goals Date Patient Goal Desired Activity /State Functional Status Date Assessment Result Facility 06-27-2024 Functional Status N/A [facility] 06-24-2024 Functional Status N/A [facility] 02-13-2024 Functional Status N/A [facility] 09-29-2023 Functional Status N/A [facility] 09-26-2023 Functional Status N/A [facility] 07-31-2023 Functional Status N/A [facility] 04-24-2023 Functional Status N/A [facility] 03-29-2023 Functional status Patient at Baseline [facility] Work Phone: 12-04-2021 Functional Status N/A [facility] Mental Status Date Assessment Result Facility 03-29-2023 Cognitive function Cognitive Sta tus Patient at Baseline [facility] Work Phone: Clinical Notes 03-19-2019 to 06-28-2024 Note Date & Type Note Facility 06-28-2024 Evaluation + Plan note Extrac flo from: Title:ED Note Author:Jordyn Willett DO Date :06/28/24 Abdominal pain (R10.9: Unspe cified abdominal pain) Nausea (R11.0: Nausea) Orders: acetaminophen-oxycodone, 1 EA, Tab, Oral, Once, Stop date 06/28/24 0:46:00 EST, STAT, Start date 06/28/24 0:46:00 EST HYDROmorphone, 1 mg = 1 mL, Injection, IV Push, Once, Stop date 06/28/24 0:24:00 EST, STAT, Start date 06/28/24 0:24:00 EST, 06/28/24 0:24:00 EST ketorolac, 15 mg = 1 mL, Injection, IV Push, Once, Stop date 06/28/24 0:24:00 EST, STAT, Start date 06/28/24 0:24:00 EST, 06/28/24 0:24:00 EST ondansetron, 4 mg = 2 mL, Injection, IV Push, Once, Stop date 06/28/24 0:24:00 EST, STAT, Start date 06/28/24 0:24:00 EST, 06/28/24 0:24:00 EST Basic Metabolic Panel CBC w/ Auto Diff eGFR Extra Blue Tube Extra SST Tube Hepatic Function Panel Lipase Level UA with Cult Rflx [facility] 01-16-2025 Hospital Discharge instructions Patient Education 06/28/2024 01:38:52 Abdominal Pain, Adult, Qxgs-nm-Vnpi Abdominal Pain, Adult Many things can cause belly (abdominal) pain. In most cases, belly pain is not a serious problem and can be watched and treated at home. But in some cases, it can be serious. Your doctor will try to find the cause of your belly pain. Follow these instructions at home: Medicines Take ssep-pvg-xhislfh and prescription medicines only as told by your doctor. Do not take medicines that help you poop (laxatives) unless told by your doctor. General instructions Watch your belly pain for any changes. Tell your doctor if the pain gets worse. Drink enough fluid to keep your pee (urine) pale yellow. Contact a doctor if: Your belly pain changes or gets worse. You have very bad cramping or bloating in your belly. You vomit. Your pain gets worse with meals, after eating, or with certain foods. You have trouble pooping or have watery poop for more than 2 3 days. You are not hungry, or you lose weight without trying. You have signs of not getting enough fluid or water (dehydration). These may include: ?Dark pee, very little pee, or no pee. ?Cracked lips or dry mouth. ?Feeling sleepy or weak. You have pain when you pee or poop. Your belly pain wakes you up at night. You have blood in your pee. You have a fever. Get help right away if: You cannot stop vomiting. Your pain is only in one part of your belly, like on the right side. You have bloody or black poop, or poop that looks like tar. You [...] provider. Document Revised: 03/16/2023 Document Reviewed: 03/16/2023 [employer] Patient Education 2023 [employer]. Follow Up Care 06/27/2024 21:47:06 With:[employer] Address: [place] [address]- [facility] (1) When:07/01/2024 Comments:Please follow-up with your primary care doctor and CHIEF INVESTIGATOR for further evaluation and management. Return to the ED for any new or worsening symptoms. With:XXXX NONE Address: [place] When:Within 3 Day(s) [facility] 01-16-2025 NoteED Patient Education Note Gastroenterology Abdominal Pain, Adult Many things can cause belly (abdominal) pain. In most cases, belly pain is not a serious problem and can be watched and treated at home. But in some cases, it can be serious. Your doctor will try to find the cause of your belly pain. Follow these instructions at home: Medicines ??? Take rkde-kbd-oxnwrxx and prescription medicines only as told by your doctor. ??? Do not take medicines that help you poop (laxatives) unless told by your doctor. General instructions ??? Watch your belly pain for any changes. Tell your doctor if the pain gets worse. ??? Drink enough fluid to keep your pee (urine) pale yellow. Contact a doctor if: ??? Your belly pain changes or gets worse. ??? You have very bad cramping or bloating in your belly. ??? You vomit. ??? Your pain gets worse with meals, after eating, or with certain foods. ??? You have trouble pooping or have watery poop for more than 2?3 days. ??? You are not hungry, or you lose weight without trying. ??? You have signs of not getting enough fluid or water (dehydration). These may include: ? Dark pee, very little pee, or no pee. ? Cracked lips or dry mouth. ? Feeling sleepy or weak. ??? You have pain when you pee or poop. ??? Your belly pain wakes you up at night. ??? You have blood in your pee. ??? You have a fever. Get help right away if: ??? You cannot stop vomiting. ??? Your pain is only in one part of your belly, like on the right side. ??? You have bloody or black poop, or poop that looks like tar. ??? You have trouble breathing. ??? You have chest pain. These symptoms may be an emergency. Get help right away. Call 911. ??? Do not wait to see if the symptoms will go away. ??? Do not drive yourself to the hospital. This information is not intended to replace advice given to you by your health care provider. Make sure you discuss any questions you have with your health care provider. Document Revised: 03/16/2023 Document Reviewed: 03/16/2023 [employer] Patient Education ? 2023 [employer].[facility] 06-27-2024 Hospital Discharge instructions* Discharge Instructions* Randee Richarsdon MD - 06/27/2024 3:16 PM EST Please call your CHIEF INVESTIGATOR and schedule follow-up visit. Continue taking your pain medications as prescribed. Return to the ER for any worsening symptoms or concerns * Attachments The following attachments cannot be sent through Care Everywhere. * Abdominal Pain ([place]izen [place]) [facility] Discharge instructions Patient Education 06/25/2024 02:47:57 Abdominal Pain, [...] Follow these instructions at home: Medicines Take nezz-ayq-ikoutmu and prescription medicines only as told by [...] provider. Document Revised: 03/16/2023 Document Reviewed: 03/16/2023 [employer] Patient Education 2023 [employer]. Follow Up Care 06/24/2024 19:25:17 With:Jacy CHIRINOS Address: [address] [place] [address] Business (1) When:06/28/2024 [facility] 01-13-2025 NoteED Patient Education Note Gastroenterology Abdominal Pain, Adult [...] pain. Follow these instructions at home: Medicines ??? Take fqzr-yee-szzkeva and prescription medicines only as told by your provider. ??? Do not take medicines that help you poop (laxatives) unless told by your provider. General instructions ??? Watch your condition for any changes. ??? Drink enough fluid to keep your pee (urine) pale yellow. Contact a health care provider if: ??? Your pain changes, gets worse, or lasts longer than expected. ??? You have severe cramping or bloating in your abdomen, or you vomit. ??? Your pain gets worse with meals, after eating, or with certain foods. ??? You are constipated or have diarrhea for more than 2?3 days. ??? You are not hungry, or you lose weight without trying. ??? You have signs of dehydration. These may include: ? Dark pee, very little pee, or no pee. ? Cracked lips or dry mouth. ? Sleepiness or weakness. ??? You have pain when you pee (urinate) or poop. ??? Your abdominal pain wakes you up at night. ??? You have blood in your pee. ??? You have a fever. Get help right away if: ??? You cannot stop vomiting. ??? Your pain is only in one part of the abdomen. Pain on the right side could be caused by appendicitis. ??? You have bloody or black poop (stool), or poop that looks like tar. ??? You have trouble breathing. ??? You have chest pain. These symptoms may be an emergency. Get help right away. Call 911. ??? Do not wait to see if the symptoms will go away. ??? Do not drive yourself to the hospital. This information is not intended to replace advice given to you by your health care provider. Make sure you discuss any questions you have with your health care provider. Document Revised: 03/16/2023 Document Reviewed: 03/16/2023 [employer] Patient Education ? 2023 [employer].[facility] 06-24-2024 Evaluation + Plan noteExtracted from: Title:ED Note Author:Ritesh Heath DO Date :06/24/24 Abdominal pain, acute (R10.9 : Unspecified abdominal pain) Ordered: acetaminophen-oxycodone, 1 tab(s), Oral, q8hr for 3 day(s), 9 tab(s), Refill(s) 0, [facility]/pharmacy #[id number], 165, cm, 06/24/24 19:33:00 EST, Height/Length [...] Beta Hcg Qual UA with Cult Rflx [facility] 12-30-2024 NoteEducation Materials Obstetrics and Gynecology [...] Follow these instructions at home: ? Take mmiz-qih-hyawjsu and prescription medicines only as told by [...] provider. Document Revised: 10/31/2020 Document Reviewed: 11/06/2020 [employer] Patient Education ? 2023 [employer].[facility] [id number] Miscellaneous Notes* Telephone Encounter - Shefali Rodriguez - 06/11/2024 8:57 AM EST Settlement Technician left voicemail to schedule a H/F with Kendra in [place]. documented in this [facility]Park[facility] encounter Note* Telephone Encounter - Shefali Rodriguez - 06/11/2024 8:57 AM EST Settlement Technician epifanio friedmanmail to schedule a H/F with Kendra in [place]. [facility]12-28-2024 Miscellaneous Notes* Telephone Encounter - Isabell Tor - 06/09/2024 9:25 PM EST Contract: [address] kidd abdominal pain, post-op Relayed info to Dr Woo on cell and transferred documented in this encounterPark[facility]12-28-2024 Telephone encounter Note* Telephone Encounter - Isabell Tor - 06/09/2024 9:25 PM EST Contract: [address] Bettye kidd abdominal pain, post-op Relayed info to Dr Woo on cell and transferred [facility]12-28-2024 Miscellaneous Notes* Telephone Encounter - Isabellalisia Lentz - 06/09/2024 8:05 PM EST Contract: [address] [facility] [address] Bradley kidd abnormal CT, post-op Relayed info to Dr Woo on cell and transferred documented in this encounterPark[facility]12-28-2024 Telephone encounter Note* Telephone Encounter - Isabellalisia Lentz - 06/09/2024 8:05 PM EST Contract: [address] [facility] [address] Bradley kidd abnormal CT, post-op Relayed info to Dr Woo on cell and transferred [facility]12-27-2024 NoteEducation Materials Obstetrics and Gynecology Endometriosis Follow-up with your CHIEF INVESTIGATOR to review this emergency department visit and [...] these instructions at home: Medicines ? Take yrlf-tte-kiceqrz and prescription medicines only as told by your health care provider. ? Ask your health care provider if the medicine prescribed to you: ? Requires you to avoid driving or using machinery. ? Can cause constipation. You may need to take these actions to prevent or treat constipation: ? Drink enough fluid to keep your urine pale yellow. ? Take lunj-qlm-wyuqsuo or prescription medicines. ? Eat foods that [...] important. Where to find more information ? [employer]: www.acog.org ? [...] vomiting, or you (more content not included)... [facility] [id number] Miscellaneous Notes* Telephone Encounter - Nunu Stewart RN - 04/09/2024 4:47 PM EDT Patient left VM on Rx refill line requesting 1-2 day supply refill on oxycodone. Patient had hysterectomy on Friday 04/06 and states she is still experiencing slight pain. documented in this encounterPark[facility]10-28-2024 Telephone encounter Note* Telephone Encounter - Nunu Stewart RN - 04/09/2024 4:47 PM EDT Patient left VM on Rx refill line requesting 1-2 day supply refill on oxycodone. Patient had hysterectomy on Friday 04/06 and states she is still experiencing slight pain. [facility]10[facility] Instructions* Pre-Procedure Instructions - Lucy Dennison RN - 04/03/2024 3:45 PM EDT Your surgery/procedure is scheduled at [facility] on 04/06 at 1100 Arrival Time 0900 [facility] Address: [address] [place] [address] in [address] Parking lot located on [facility]. Report to the Entrance B. Check in at the information desk the surgery. The waiting room located on the second floor. If you have any questions prior to surgery, please call Pre-Admission Clinic at [phone] between 7:30 am and 4:30 pm Tuesday through Tuesday. If you have questions the morning of surgery, please call the Pre-op Department at [phone]. Notify your SURGEON if you develop any [...] piercings ,hair extensions that contain metal, nail slovenian, make-up, and contact lens. You may brush [...] RIGHTS AND RESPONSIBILITIES As a patient at [facility], you have the right to: Receive medical care and be informed of who is taking care of you Be treated with dignity and respect Have a family member/artist's representative of choice and your physician notified of your admission Receive information and actively participate in decisions about your care and treatment Refuse care, treatment and services Decide who may provide your support and speak for you Access [facility] and spiritual services Participate in ethical issues [...] of hospital charges and payment methods Patient/patient artist's representative responsibilities are to: Provide information about health status to facilitate care, treatment and services Follow the treatment, plan, keep appointments and speak up when you do not understand the plan Respect the rights of other patients and healthcare personnel Follow organizational rules and regulations that support quality care and a safe environment Fulfill financial obligations as promptly as possible [facility]10-22-2024 Miscellaneous Notes* Pre-Procedure Instructions - Lucy Dennison RN - 04/03/2024 3:45 PM EDT Your surgery/procedure is scheduled at [facility] on 04/06 at 1100 Arrival Time 0900 [facility] Address: [address] [place] [address] Park in [address]1 Parking lot located on [facility]. Report to the Entrance B. Check in at the information desk the surgery. The waiting room located on the second floor. If you have any questions prior to surgery, please call Pre-Admission Clinic at [phone] between 7:30 am and 4:30 pm Tuesday through Tuesday. If you have questions the morning of surgery, please call the Pre-op Department at [phone]. Notify your SURGEON if you develop any [...] piercings ,hair extensions that contain metal, nail slovenian, make-up, and contact lens. You may brush [...] RIGHTS AND RESPONSIBILITIES As a patient at [facility], you have the right to: Receive medical care and be informed of who is taking care of you Be treated with dignity and respect Have a family member/artist's representative of choice and your physician notified of your admission Receive information and actively participate in decisions about your care and treatment Refuse care, treatment and services Decide who may provide your support and speak for you Access [facility] and spiritual services Participate in ethical issues [...] of hospital charges and payment methods Patient/patient artist's representative responsibilities are to: Provide information about health status to facilitate care, treatment and services Follow the treatment, plan, keep appointments and speak up when you do not understand the plan Respect the rights of other patients and healthcare personnel Follow organizational rules and regulations that support quality care and a safe environment Fulfill financial obligations as promptly as possible documented in this encounterPark[facility]10-16-[facility] History of Present illness Narrative* Adiel [...] procedures Referring and communicating with other health specialist wound care (not separately reported) Documenting clinical information in the electronic or other health record Adiel Aparicio MD documented in this encounterParkview [facility]09-21-2024 Emergency department Note* Davi Marie, - 03/03/2024 4:47 PM EDT Emergency Department Report [facility] EMERGENCY MEDICINE Service Date:.03/03/24 PCP: No primary [...] for months. Patient states she has seen CHIEF INVESTIGATOR specialist in [place], Dr. Aparicio's, to have her uterus/hysterectomy secondary to endometriosis. Patient says that she then farzana lion PCPs at this point. Patient does have a OBGYN in [facility], Dr. Berrios. Patient states she is not [...] Spasms Atenolol Other Reaction(s): Dr. Cantu/ Justin Octacosanoregino Phenothiazines Anxiety and Itching Other Reaction(s): Jittery [...] by Nasal route once for 1 dose. Courtland into the nose as directed. Call 911. [...] Insecurity: No Food Insecurity (01/27/2024) [facility] Hunger Screening Within the past 12 [...] file Social Connections: Unknown (03/22/2023) Received from [facility] Family and Community Support Help with Day-to-Day Activities: Not on file Lonely or Isolated: Not on file Intimate Partner Violence: Unknown (03/22/2023) Received from [facility] Abuse Screen Unsafe at Home or Work/School: Not on file Feels Threatened by Someone?: Not on file Does Anyone Keep You from Contacting Others or Doint Things Outside the Home?: Not on file Physical Sign of Abuse Present: Not on file Housing Stability: Unknown (03/22/2023) Received from [facility] Housing Stability Current Living Arrangements: Not [...] to palpation. GI: Soft, patient does have jegx-vd-cvteokkb tenderness to palpation over lower quadrant, no [...] Orders Placed This Encounter AMB REFERRAL TO OB-BIOINFORMATICS SCIENTIST AMB REFERRAL TO CHRONIC PAIN CLINIC hydroCODone-acetaminophen [...] YELLOW YELLOW APPEARANCE, URINE CLEAR CLEAR Specific Alexis, Urine 1.010 1.010 - 1.025 PH URINE [...] on opiates. Patient was recommended call Dr. BRADNE on Tuesday, I did speak to the PA and office as well, ARLEEN Moreno; she is aware of patient's multiple ER visits, multiple prescriptions for pain medication, and trying to help treat patient's long-term chronic pain before he can have definitive treatment from Dr. Aparicio's in [place] for her endometriosis and hysterectomy which patient [...] ED w/ steady gait [facility] Emergency department Note* Davi Marie DO - 03/03/2024 4:47 PM EDT Emergency Department Report [facility] EMERGENCY MEDICINE Service Date:.03/03/24 PCP: No primary [...] for months. Patient states she has seen CHIEF INVESTIGATOR specialist in [place], Dr. Mendoza, to have her uterus/hysterectomy secondary to endometriosis. Patient says that she then b etween PCPs at this point. Patient does have a OBGYN in [facility], Dr. Berrios. Patient states she is not [...] by Nasal route once for 1 dose. Courtland into the nose as directed. Call 911. [...] Insecurity: No Food Insecurity (01/27/2024) [facility] Hunger Screening Within the past 12 [...] file Social Connections: Unknown (03/22/2023) Received from [facility] Family and Community Support Help with Day-to-Day Activities: Not on file Lonely or Isolated: Not on file Intimate Partner Violence: Unknown (03/22/2023) Received from [facility] Abuse Screen Unsafe at Home or Work/School: Not on file Feels Threatened by Someone?: Not on file Does Anyone Keep You from Contacting Others or Doint Things Outside the Home?: Not on file Physical Sign of Abuse Present: Not on file Housing Stability: Unknown (03/22/2023) Received from [facility] Housing Stability Current Living Arrangements: Not [...] to palpation. GI: Soft, patient does have znhd-jp-xnwuipun tenderness to palpation over lower quadrant, no [...] Orders Placed This Encounter AMB REFERRAL TO OB-BIOINFORMATICS SCIENTIST AMB REFERRAL TO CHRONIC PAIN CLINIC hydroCODone-acetaminophen [...] YELLOW YELLOW APPEARANCE, URINE CLEAR CLEAR Specific Alexis, Urine 1.010 1.010 - 1.025 PH URINE [...] have definitive treatment from Dr. Aparicio's in [place] for her endometriosis and hysterectomy which patient [...] . . Davi Marie DO 03/03/24 1706 [facility]09-[facility] Emergency department Note* Geri Burciaga RN - [...] ambulatory out of ED w/ steady gait [facility] Hospital Discharge instructions* Discharge Instructions* Davi Marie DO - 03/03/2024 4:[address] Wilson, your OBGYN in [place] to see if your appointment may be moved up. Call Dr. Braden in [place] on Tuesday to see if they will [...] to you as well. documented in this encounterMemorial [facility]09-13-[facility]24 Emergency department Note* Ashley Delcid MD - 02/24/2024 11:24 PM EDT Emergency Department Report [facility] EMERGENCY MEDICINE Service Date:.02/25/24 PCP: No primary [...] has a history of endometriosis. Follows with rn gynecology in [place]. States she is waitingto be scheduled for a total hysterectomy. Last saw them in November as per records. She explains they just have not scheduled it yet but she is in constant pain. Review of records shows similar presentation at outlying facilities. Is here in [place] helping grandmother pack up to move to [place] with the rest of the family Review [...] by Nasal route once for 1 dose. Courtland into the nose as directed. Call 911. [...] Insecurity: No Food Insecurity (01/27/2024) Received from [facility] Hunger Screening Within the past 12 [...] file Social Connections: Unknown (03/22/2023) Received from [facility] Family and Community Support Help with Day-to-Day Activities: Not on file Lonely or Isolated: Not on file Intimate Partner Violence: Unknown (03/22/2023) Received from [facility] Abuse Screen Unsafe at Home or Work/School: Not on file Feels Threatened by Someone?: Not on file Does Anyone Keep You from Contacting Others or Doint Things Outside the Home?: Not on file Physical Sign of Abuse Present: Not on file Housing Stability: Unknown (03/22/2023) Received from [facility] Housing Stability Current Living Arrangements: Not [...] YELLOW YELLOW APPEARANCE, URINE CLEAR CLEAR Specific Alexis, Urine 1.010 1.010 - 1.025 PH URINE [...] I offered to contact her physician in [place] and see if I could transfer her [...] Emotional support provided per Dr. Delcid. Dr. eDlcid asks pt if she would like her to call her Doctor in [place] for possible transfer. Pt refuses. Pt states she does not want to be admitted anywhere and states will sign AMA form and call her pcp in the morning. * Geri Burciaga RN - 02/24/2024 9:46 PM EDT Pt states pain has not improved after dilaudid administration. Dr. Delcid made aware * Geri Burciaga RN - 02/24/2024 9:20 PM EDT Pt states her grandmother will transport her home if discharged documented in this encounterMem[facility] System09-13-[facility]24 Physician Emergency department Note* Ashley Delcid MD - 02/24/2024 11:24 PM EDT Emergency Department Report [facility] EMERGENCY MEDICINE Service Date:.02/25/24 PCP: No primary [...] has a history of endometriosis. Follows with rn gynecology in [place]. States she is waitingto be scheduled for a total hysterectomy. Last saw them in November as per records. She explains they just have not scheduled it yet but she is in constant pain. Review of records shows similar presentation at outlying facilities. Is here in [place] helping grandmother pack up to move to [place] with the rest of the family Review [...] by Nasal route once for 1 dose. Courtland into the nose as directed. Call 911. [...] Insecurity: No Food Insecurity (01/27/2024) Received [facility] Hunger Screening Within the past 12 [...] file Social Connections: Unknown (03/22/2023) Received from [facility] Family and Community Support Help with Day-to-Day Activities: Not on file Lonely or Isolated: Not on file Intimate Partner Violence: Unknown (03/22/2023) Received from [facility] Abuse Screen Unsafe at Home or Work/School: Not on file Feels Threatened by Someone?: Not on file Does Anyone Keep You from Contacting Others or Doint Things Outside the Home?: Not on file Physical Sign of Abuse Present: Not on file Housing Stability: Unknown (03/22/2023) Received from [facility] Housing Stability Current Living Arrangements: Not [...] YELLOW YELLOW APPEARANCE, URINE CLEAR CLEAR Specific Alexis, Urine 1.010 1.010 - 1.025 PH URINE [...] I offered to contact her physician in [place] and see if I could transfer her [...] information. . Ashley Delcid MD 02/25/24 0355 [facility] [facility] Note* Geri Burciaga RN - 02/24/2024 11:21 PM EDT AMA form signed. Pt aware of risks and refuses hospital admission. Pt states grandmother is at facility to transport her home. Denies further needs at this time. Pt is a&o respirations are even and unlabored. Pt ambulatory out of ED w/ steady gait [facility] Emergency department Note* Geri Burciaga RN - [...] like her to call her Doctor in [place] for possible transfer. Pt refuses. Pt states she does not want to be admitted anywhere and states will sign AMA form and call her pcp in the morning. [facility] Emergency [facility] Note* Geri Burciaga RN - 02/24/2024 9:46 PM EDT Pt states pain has not improved after dilaudid administration. Dr. Delcid made aware [facility] Emergency department Note* Geri Burciaga RN - 02/24/2024 9:20 PM EDT Pt states her grandmother will transport her home if discharged [facility] Emergency department Note* Una Levy RN - 02/16/2024 5:12 PM EDT Discharge instructions provided. Patient verbalized understanding. Denies any questions or concernsprior to discharge. Ambulatory out of ED with Rx X2. [facility] Emergency department Note* Una Levy RN - [...] 02/16/2024 1:48 PM EDT Emergency Department Report [facility] EMERGENCY MEDICINE Service Date:.02/16/24 PCP: No primary [...] Spasms Spasms Atenolol Other Reaction(s): Dr. Cantu/ Dizzelizabeth Octacosanol Phenothiazines Anxiety and Itching Other Reaction(s): Jittery Medications: Patient's Medications New Prescriptions NALOXONE 4 MG/0.1ML 1 spray by Nasal route once for 1 dose. Courtland into the nose as directed. Call 911. [...] Insecurity: No Food Insecurity (01/27/2024) Received from [facility] Hunger Screening Within the past 12 [...] file Social Connections: Unknown (03/22/2023) Received from [facility] Family and Community Support Help with Day-to-Day Activities: Not on file Lonely or Isolated: Not on file Intimate Partner Violence: Unknown (03/22/2023) Received from [facility] Abuse Screen Unsafe at Home or Work/School: Not on file Feels Threatened by Someone?: Not on file Does Anyone Keep You from Contacting Others or Doint Things Outside the Home?: Not on file Physical Sign of Abuse Present: Not on file Housing Stability: Unknown (03/22/2023) Received from [facility] Housing Stability Current Living Arrangements: Not on file Potentially Unsafe Housing Conditions: Not on file Physical Exam: Physical Exam CONST: -Well-developed well-nourished ; -In no acute distress. -Vitals reviewed. EYES: -EOM intact, KOLBY: -Sclera normal and conjunctiva: clear bilaterally. ENT: - Normal pharynx pink and moist. NECK: -Supple (ipoa-kq-xfrsx). CARD: -Rate and rhythm: Regular -Murmurs: No [...] by Nasal route once for 1 dose. Courtland into the nose as directed. Call 911. [...] information. . . Jennifer Moore MD 02/16/24 [id number] documented in this [facility]09-05-2024 Hospital Discharge instructions* Discharge Instructions* Jennifer Moore MD - 02/16/2024 4:52 PM EDT Tylenol for moderate pain. Full liquid diet for 2 days. * Attachments The following attachments cannot be sent through Care Everywhere. * Abdominal Pain ([place]) documented in this [facility]09-05-2024 Emergency department Note* Una Levy RN - 02/16/2024 3:40 PM EDT Patient states that pain is getting worse again. Dr Moore notified. No new orders received at this time. States he is waiting for CT results. Patient updated on plan. [facility] Emergency department Note* Tangela Guajardo RN - 02/16/2024 3:10 PM EDT Pt taken to CT scan [facility] Physician Emergency department Note* Jennifer Moore MD - 02/16/2024 1:48 PM EDT Emergency Department Report [facility] EMERGENCY MEDICINE Service Date:.02/16/24 PCP: No primary [...] by Nasal route once for 1 dose. Courtland into the nose as directed. Call 911. [...] Insecurity: No Food Insecurity (01/27/2024) Received from [facility] Hunger Screening Within the past 12 [...] file Social Connections: Unknown (03/22/2023) Received from [facility] Family and Community Support Help with Day-to-Day Activities: Not on file Lonely or Isolated: Not on file Intimate Partner Violence: Unknown (03/22/2023) Received from [facility] Abuse Screen Unsafe at Home or Work/School: Not on file Feels Threatened by Someone?: Not on file Does Anyone Keep You from Contacting Others or Doint Things Outside the Home?: Not on file Physical Sign of Abuse Present: Not on file Housing Stability: Unknown (03/22/2023) Received from [facility] Housing Stability Current Living Arrangements: Not on file Potentially Unsafe Housing Conditions: Not on file Physical Exam: Physical Exam CONST: -Well-developed well-nourished ; -In no acute distress. -Vitals reviewed. EYES: -EOM intact, KOLBY: -Sclera normal and conjunctiva: clear bilaterally. ENT: - Normal pharynx pink and moist. NECK: -Supple (ppzp-po-ryrwq). CARD: -Rate and rhythm: Regular -Murmurs: No [...] by Nasal route once for 1 dose. Courtland into the nose as directed. Call 911. [...] above information. . . Jennifer Moore MD 02/16/241654 [facility] Evaluation + Plan noteExtracted from: Title:ED Note Author:Ivana WATKINS Ritesh LewisEbenezer Date :02/13/24 Pain, dental (K08.89: Other [...] EDT, STAT, Start date 02/13/24 0:43:00 EDT [facility] 09-02-2024 Hospital Discharge instructions Patient Education [...] or after getting dental care. Medicines Take eyrm-jtd-xyuehpx and prescription medicines only as told by [...] pain may be mild or severe. Take bxkl-hgg-wppfkwn and prescription medicines only as told by [...] provider. Document Revised: 03/04/2021 Document Reviewed: 03/04/2021 [employer] Patient Education 2023 [employer]. Follow Up Care 02/13/2024 00:22:40 With:Dental: [facility] [phone] Address:Unknown When:02/16/2024 With:Dental: [facility] [phone] Address:Unknown When:02/16/2024 With:Dental: [facility] [phone] Address:Unknown When:02/16/2024 [facility] 09-02-2024 NoteED Patient Education Note Dentistry [...] after getting dental care. Medicines ? Take ajta-obc-ujwlvup and prescription medicines only as told by [...] may be mild or severe. ? Take stxf-uln-gbxdclf and prescription medicines only as told by [...] provider. Document Revised: 03/04/2021 Document Reviewed: 03/04/2021 [employer] Patient Education ? 2023 [facility] Discharge instructions* Discharge Instructions* Eren [...] Everywhere. * Ovarian Cyst: Functional ([place]) [facility]* Author Jennifer Duran [facility] Authored January 19, 2024 11: 44am The above note written by __ _Polly Collado____ acting as human recorder, note dictated by Dr. Mcfadden .I performed the above HPI, ROS, and Examination. I formulated and dictated the treatment plan and was present for entire encounter. Jennifer Duran D.O. [facility] Work Phone: 1(277) 292-622305-28-2024 Hospital Discharge instructions* Discharge Instructions* Eren Camejo DO - 11/08/2023 12:01 PM EDT Use clindamycin as prescribed. Continue the pain medicine that you have at home as needed for pain.Follow-up with dentist as scheduled * Attachments The following attachments cannot be sent through Care Everywhere. * Tooth and Gum Pain ([place]) [facility] Evaluation note* Author Jennifer Duran [facility] Authored May 7th, 2024 3:45pm The above note written by __ _Polly Collado____ acting as human recorder, note dictated by Dr. Mcfadden .I performed the above HPI, ROS, and Examination. I formulated and dictated the treatment plan and was present for entire encounter. Jennifer Duran D.O. [facility] Work Phone: 1(166) 329-695404-19-2024 Evaluation + Plan noteExtracted from: Title:ED Note [...] Diagnostic Tests Pending * Urine Culture 09/30/23 [facility]04-19-2024 Hospital Discharge instructions Patient Education [...] (oophorectomy). Follow these instructions at home: Take htag-usc-uodthrk and prescription medicines only as told by [...] provider. Document Revised: 11/06/2020 Document Reviewed: 11/06/2020 [employer] Patient Education 2022 [employer]. Follow Up Care 09/29/2023 23:40:10 With:Rose Royal Address: [address] [facility] [address] [place] [address]- Business (1) When:10/03/2023 [facility]04-15-2024 Hospital Discharge instructions Follow Up Care 09/26/2023 13:55:08 With:[place] [facility] Address: [address] [place] [address]- Business (1) When:09/29/2023 17:49:12 With:Tarun BRADEN Address: [address] , [place] [address]- Business (1) When:09/29/2023 17:49:03 With:XXXX NONE Address: [place] When:Within 3 Day(s) [facility]04-15-2024 Evaluation + Plan noteExtracted from: [...] # 20 tab(s), Refills(s) 0, Pharmacy: [facility]/pharmacy #[id number], 165, cm, 09/26/23 14:18:00 EDT, Height/Length Dosing, 81.2, kg, 09/26/23 14:18:00 EDT, Weight Dosing hyoscyamine, 0.125 mg = 1 tab(s), Oral, QID, X 5 day(s), # 20 tab(s), Refills(s) 0, Pharmacy: [facility]/pharmacy #[id number], 165, cm, 09/26/23 14:18:00 EDT, Height/Length Dosing, 81.2, kg, 09/26/23 14:18:00 EDT, Weight Dosing ketorolac, 30 mg = 1 mL, Injection, IV, Once, Stop date 09/26/23 15:40:00 EDT, STAT, Start date 09/26/23 15:40:00 EDT, 09/26/23 15:40:00 EDT polyethylene glycol 3350, 17 gm, Oral, Daily, X 7 day(s), # 119 gm, Refills(s) 0, Pharmacy: [facility]/pharmacy #[id number], 165, cm, 09/26/23 14:18:00 EDT, Height/Length Dosing, 81.2, kg, 09/26/23 14:18:00 EDT, Weight Dosing Beta hCG Qual CBC w/ Auto Diff Comprehensive Metabolic Panel CT Abdomen/Pelvis w/ Contrast Drug Screen Urine eGFR Extra Blue Tube Extra SST Tube Lipase Level UA with Cult Rflx US Pelvis Non-OB Complete US Transvaginal Non-OB [facility]02-18-2024 Hospital Discharge instructions Patient Education [...] Follow these instructions at home: Medicines Take stja-gvr-fmejihv and prescription medicines only as told by [...] Watch your condition for any changes. Take pkew-zda-fituigz and prescription medicines only as told by [...] provider. Document Revised: 07/18/2020 Document Reviewed: 10/08/2019 [employer] Patient Education 2022 [employer]. Follow Up Care 07/31/2023 15:34:13 With:Follow-up with your CHIEF INVESTIGATOR at [facility] Address:Unknown When:08/03/2023 17:52:19 Comments:Call the [...] weakness, or any new or worsening symptoms. [facility]02-15-2024 Evaluation note* Author Jennifer Duran [facility] Authored July 28, 2023 1:18pm The above note written by __ _Polly Collado____ acting as human recorder, note dictated by Dr. Mcfadden .I performed the above HPI, ROS, and Examination. I formulated and dictated the treatment plan and was present for entire encounter. Jennifer Duran D.O. [facility] Work Phone: 1(576) 561-477302-06-2024 Evaluation note* Encounter Date Diagnosis Assessment Notes Treatment Notes Treatment Clinical Notes Jul, Anxiety (ICD-10 - F41.9) [employer] [facility] Other 02-06-2024 Evaluation note* Encounter Date Diagnosis [...] an appointment with her specialist through the [facility] and is scheduled at the end of this month (July) and is hoping to have a total hysterectomy. [facility] [facility] Other 12-26-2023 Evaluation note* Encounter Date Diagnosis Assessment Notes Treatment Notes Treatment Clinical Notes May, Cough (ICD-10 - R05.9) [facility] [facility] Other 12-04-2023 Evaluation note* Encounter Date Diagnosis Assessment Notes Treatment Notes Treatment Clinical Notes May, Anxiety (ICD-10 - F41.9) [facility] Other 11-12-2023 Hospital Discharge instructions Patient Education [...] Follow these instructions at home: Medicines Take bgub-ejc-ohaqrrj and prescription medicines only as told by [...] Watch your condition for any changes. Take vaqt-pzb-xkqrulh and prescription medicines only as told by [...] provider. Document Revised: 07/18/2020 Document Reviewed: 10/08/2019 [employer] Patient Education 2022 [employer]. Follow Up Care 04/24/2023 13:13:55 With:YOUR OBGYN at [facility] Address:Unknown When:04/27/2023 15:50:22 Comments:Seek immediate medical attention [...] develop any new or worsening symptoms. 3. [facility]11-12-2023 Evaluation + Plan noteExtracted from: Title:ED Note Author:Jignesh Dumont DO Date:06/24/22 Abdominal pain, acute, left lower quadrant (R10.32: Left lower quadrant pain) Ordered: oxycodone, 5 mg = 1 cap(s), Oral, q6hr, PRN Pain 8-10, X 3 day(s), # 12 cap(s), Refills(s) 0, Pharmacy: [facility]/pharmacy #[id number], 165.1, cm, 04/24/23 13:32:00 [...] Saline Lock Insert UA With Cult Reflex [facility]11-06-2023 Evaluation note* Encounter Date Diagnosis [...] an appointment with her specialist at the [facility] in June (2023) which was the soonest they could get her in. She is hoping that they will at least remove the ovary but she is willing to have a total hysterectomy if they will do it. 1:13 PM - 1:20 PM [employer] [facility] Other 10-20-2023 Evaluation note* Encounter Date Diagnosis Assessment Notes Treatment Notes Treatment Clinical Notes Mar, Anxiety (ICD-10 - F41.9) [employer] [facility] Other 10-17-2023 Progress note Author Christi Aquino [facility] March 29, 2023 4:11pm Note Date/Time March 29, 2023 1 1:35am [facility] [address] [place], [place] [id number] Progress Note Signed with Addenda Patient: Antonia Noyola MR#: [id number] : 1985 Acct:[id number] Age/Sex: 38 / F Adm Date: 3 Loc: Room: [address] [place] [address] Type: ADM IN Attending Dr: Christi Aquino MD Copies to: ~ ADDENDUM1 Upon re-evaluation in the afternoon, patient feels better and would like to go home. Prescribed pain medications as needed as directed. Advised to continue to follow up with [facility] staff master tax advisor. 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 master tax advisor eval requested for further evaluation. 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 Afebrile here, no leukocytosis or obvious evidence of infectious process. Placed on Pain meds regimen IV and PO. Ongoing monitoringfor now. Documented By: Christi Aquino MD 03/29/23 11 32 Signed By: <Electronically signed by Christi Aquino MD> 03/29/23 6656 [facility] Work Phone: [phone]) 171-370810-17-2023 History and physical note Author Megan Muniz [facility] March 29, 2023 7:29am Note Date/Time March 29, 2023 7 :29am [facility] [address] [place] [address] Hospitalist H&P Signed Patient: Antonia Noyola MR#: [id number] : 1985 Acct:[id number] Age/Sex: 38 / F Adm Date: 3 Loc: Room: [address] [place] [address] Type: ADM IN Attending Dr: Christi Aquino [...] findings. The patient case was discussed with CHIEF INVESTIGATOR, who was not convinced that left ovarian [...] in the computer system reviewed [facility] Medical History Anemia Endometriosis Surgical History History [...] % (Auto) 42.8 % (.) 03/29/23 01:40 Hendry % (Auto) 7.3 % (.) 03/29/23 01:40 Eos % (Auto) 1.8 % (.) 03/29/23 01:40 Baso % (Auto) 1.3 % (.) 03/29/23 01:40 Nucleat RBC Rel Count 0.1 /100 WBC (0-0.5) 03/29/23 01:40 Neut # (Auto) 3.5 x10E3/uL (1.8-7.7) 03/29/23 01:40 Lymph # (Auto) 3.2 x10E3/uL (1.00-4.8) 03/29/23 01:40 Hendry # (Auto) 0.6 x10E3/uL (0.0-0.8) 03/29/23 01:40 [...] pH 7.5 (5.0-9.0) 03/29/23 02:53 Ur Specific Alexis 1.003 (1.001-1.030) 03/29/23 02:53 Urine Protein Negative [...] she does have tachycardia We will consult CHIEF INVESTIGATOR Check lactic acid 2. Microcytic iron deficiency [...] days): 3 Documented By: Megan Muniz MD 03/29/2322 Signed By: <Electronically signed by Megan Muniz MD> 03/29/23728 [facility] Work Phone: 1(815) 146-950508-02-2023 Evaluation note* Encounter Date Diagnosis Assessment Notes [...] relief. She would need to see an systems software specialist for this. She is agreeable to [...] an appointment to see Dr. Castillo again. [facility] [facility] Other 06-29-2023 Evaluation note* Encounter Date Diagnosis Assessment Notes Treatment Notes Treatment Clinical Notes Nov, Acute sinusitis (ICD-10 - J01.90) Nov, Cough (ICD-10 - R05.9) [facility] [facility] Other 05-01-2023 Evaluation note* Encounter Date Diagnosis [...] no discrepancies noted. Rx was called into [facility], spoke with Chad TOWNSEND, the Xanax 0.25 MG tablets are out of stock currently so her dose was increased to 0.5 MG and she was instructed to take 1/2 tablet q8-12 hours as needed. Only 12 tablets were called in. Pt voiced understanding when notified of this change. October, Other 3:17 PM - 3:23 PM [facility] [facility] Other 04-12-2023 Evaluation note* Encounter Date Diagnosis [...] Sep, Other 12:46 PM - 12:51 PM [facility] [facility] Other 01-30-2023 Evaluation note* Encounter Date Diagnosis Assessment Notes Treatment Notes Treatment Clinical Notes Jun, Anxiety (ICD-10 - F41.9) [facility] [facility] Other 01-30-2023 Evaluation note* Encounter Date Diagnosis [...] Side effects/risks/benefi ts of medication were reviewed. [facility] [facility] Other 12-21-2022 Evaluation note* Encounter Date Diagnosis [...] May, Other 3:27 PM - 3:32 PM [facility] [facility] Other 11-18-2022 Miscellaneous Notes* Telephone Encounter - Tabby Steele Ma - 04/30/2022 2:25 PM EST CMP if needed. Tabby Steele Ma [facility]* Encounter Date Diagnosis Assessment Notes Treatment Notes Treatment Clinical Notes Mar, Anxiety (ICD-10 - F41.9) [place] [employer] Other 10-31-2022 Evaluation note* Encounter Date Diagnosis [...] done and then return to see her CHIEF INVESTIGATOR at the [facility] because she feel she has another ovarian cyst. [employer] Other 10-28-2022 Miscellaneous Notes* Allied Health - [...] 2:21 PM PAGER/CONTACT #: documented in this encounterSum[facility]-2022 Miscellaneous Notes* Telephone Encounter - MARY Narvaez - 03/15/2022 12:04 PM EDT Patient appears on the First Time Treatment List for a non-oncology treatment. No psychosocial assessment is indicated. JANNA Narvaez documented in this encounterSumma [facility]09-28-2022 NoteHNO ID: [id number] Author: Madyson Ni APRN.PIOTR Service: ? 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 She works [...] with subsequent iron deficiency. [place] [facility] [place] show hemoglobin of 11.6 [...] and removal ovarian cyst (more content not included)...[facility]09-28-2022 History of Present illness Narrative* Madyson Ni APRN.HEAD OF SALES [employer]OM[employer]ION - 03/10/2022 2:00 PM EDT Images from the original note were not included. 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 She works [...] with subsequent iron deficiency. Recent laboratories [place] [facility] [place] 04, 2020 show hemoglobin of11.6 but [...] Hyperlipidemia Father Heart Father bypass surgery, stents, [place] Madyson Ni APRN.CNP [facility] [place], [place] CC: Dr. Jennifer Duran [address] [place] [phone] I spent a total of 30 minutes on the date of the service which included preparing to see the patient, uxap-po-amjg patient care, completing clinical documentation, obtaining and/or reviewing separately obtained history, performing a medically appropriate examination, counseling and educating the pat ient/family/caregiver, ordering medications, tests, or procedures, independently interpreting results (not separately reported), and communicating results to the patient/family/caregiver. documented in this encounter[facility]09-[facility]-2022 Miscellaneous Notes* Telephone Encounter - Meaghan Ordonez - 02/18/2022 3:14 PM EDT Patient has an appt on 02/23. Would you like labs? documented in this encounterSum[facility]09-06-2022 Evaluation note* Encounter Date Diagnosis Assessment Notes Treatment Notes Treatment Clinical Notes Feb, Iron deficiency anemia (ICD-10 - D50.9) Feb, Elevated liver enzymes (ICD-10 - R74.8) [employer] Other 07-28-2022 Evaluation note* Encounter Date Diagnosis Assessment Notes Treatment Notes Treatment Clinical Notes Dec, Anxiety (ICD-10 - F41.9) [employer] Other 06-24-2022 Hospital Discharge instructions Patient Education [...] develop this condition: Playing sports that include srra-bu-fsnd contact with others. Having a skin condition [...] Follow these instructions at home: Medicines Take tumx-qqr-mtdsznh and prescription medicines only as told by [...] 06/20/2015 Document Revised: 07/10/2019 Document Reviewed: 06/21/2017 [employer] Patient Education 2020 [employer]. 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 Do not smoke. Avoid being around people [...] 05/30/2006 Document Revised: 10/30/2018 Document Reviewed: 10/30/2018 [employer] Patient Education 2020 [employer] 12/04/2021 13:59:10 BMI for Adults BMI for [...] can be done either in [place] or metric measurements. Note that charts are available to help you find your BMI quickly and easily without having to do these calculations yourself. To calculate your BMI in [place] measurements, your health care provider will: [...] BMI can be measured using [place] measurements or metric measurements. To interpret your [...] 02/08/2005 Document Revised: 05/12/2018 Document Reviewed: 04/12/2018 [employer] Patient Education 2020 [employer]. [facility] 05-06-2022 Evaluation note* Encounter Date [...] October, Other 8:28 AM - 8:35 AM [employer] Other 03-01-2022 Evaluation note* Encounter Date Diagnosis Assessment Notes Treatment Notes Treatment Clinical Notes Aug, Cough (ICD-10 - R05) [employer] Other 02-21-2022 Evaluation note* Encounter Date Diagnosis [...] Jul, Other 5:43 PM - 5:48 PM [employer] Other 12-06-2021 Evaluation note* Encounter Date Diagnosis [...] voices that her employer will handle her [facility] paperwork. If she needs a note [...] May, Other 4:25 PM - 4:38 PM [employer] Other 11-09-2021 Evaluation note* Encounter Date Diagnosis [...] R63.5) Her TSH is normal at 1.04. [employer] Other 10-07-2019 History general Narrative - Reported* Type Description Date Medical History endometriosis 2012 Medical History Echocardi[place] [facility] [place], ejection fraction 60-65% Medical History MRI Brain 03-21-19 [facility] [place] Medical History anxiety Medical History pneumonia 06/2019 Surgical History Cholecystectomy Surgical History gal bladder removed 2008 Surgical History ablation - endometri osis removed off ovaries Dr Lentz 2012 Surgical History ovarian torsion 2014 Surgical History MRI pelvis 2017 Surgical History ovarian cyst removed 06/2018 Hospitalization History see above [employer] Other Consult note Author Jameel Hatfield [facility] April 28, 2022 8:22am Note Date/Time April 28, 2022 8:22am [facility] [address] [place] [address] CHIEF INVESTIGATOR Consult Note Signed Patient: Antonia Noyola MR#: [id number] : 1985 Acct:[id number] Age/Sex: 37 / F Adm Date: 2 Loc: Room: 7C1139-9 Type: ADM INOo Attending Dr: Kiko Saenz [...] Last Admin: 04/28/22 04:43 Dose: 10 ml BIOINFORMATICS SCIENTIST - Exam Physical Exam Vital signs: Temp 97.7 F 04/28/22 04:18 Pulse 95 H 04/28/22 04:18 Resp 16 04/28/22 04:18 BP 136/95 04/28/22 04:18 Pulse Ox 100 04/28/22 04:18 O2 Del Method Room Air 04/28/22 04:18 Constitutional Constitutional: no acute distress Routine Respiratory Exam Respiratory: Absent respiratory distress Routine Abdominal Exam Abdominal: Present soft, normoactive bowel sounds and tenderness; Absent reboundor guarding BIOINFORMATICS SCIENTIST - Results Laboratory Results - Last 48 hrs. 04/28/22 02:00: Urine Color Yellow, Urine Appearance Cloudy A, Urine pH 6.5, Ur Specific Alexis 1.005, Urine Protein Negative, Urine Glucose (UA) [...] Creatinine Clear 132.36, Sodium 137, Potassium 3.7, [id number], Carbon Dioxide 21.1 L, Anion Gap 14.6, [...] % (Auto) 64.6, Lymph % (Auto) 28.9, Hendry % (Auto) 4.5, Eos % (Auto) 1.0, Baso % (Auto) 1.0, Neut # (Auto) 5.1, Lymph # (Auto) 2.3, Hendry # (Auto) 0.4, Eos # (Auto) 0.1, Baso # (Auto) 0.1, Nucleated RBC % (auto) 0.0, Platelet Estimate Normal, Plt Morphology Comment Normal, RBC Morphology N/A, Polychromasia Slight, Hypochromasia Slight, Poikilocytosis Moderate, Anisocytosis Marked, Tear Drop Cells Slight, Ovalocytes Moderate BIOINFORMATICS SCIENTIST - A/P (1) Intractable abdominal pain: Code(s): [...] And I suggested she follow-up with her home therapy teacher at the [facility]. Code(s): N83.202 - Unspecified ovarian cyst, left side Status: Acute Documented By: JAMEEL HATFIELD MD 04/28/22816 Signed By: <Electronically signed by MD JAMEEL HATFIELD> 04/28/[address] [facility] Work Phone: Evaluation + Plan note No data available for this section [facility] Evaluation noteNo assessment information available 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 [facility] Diagnosis 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 Cyst of left ovary Other and unspecified ovarian cyst [facility] Diagnosis 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 Work Phone: Evaluation note* Diagnosis Onset Date Resolution Status Abdominal pain acute Endometriosis acute Ovarian cyst acute [facility] Work Phone: Evaluation note* Author Jennifer Duran [facility] Authored July 28, 2023 12:18pm The above note written by __ _Polly Collado____ acting as human recorder, note dictated by Dr. Mcfadden .I performed the above HPI, ROS, and Examination. I formulated and dictated the treatment plan and was present for entire encounter. Jennifer Duran D.O. [facility] Work Phone: Evaluation note* Diagnosis Toothache- Primary Unspecified disorder of the teeth and supporting structures documented in this encounter [facility] note* Diagnosis Onset Date Resolution Status Anxiety acute Tachycardia acute [facility] Work Phone: evaluation note* Diagnosis Cyst of left ovary- Primary Other and unspecified ovarian cyst documented in this encounter [facility] note* Diagnosis Lower abdominal pain Abdominal pain, other specified site [facility] Diagnosis Pelvic pain- Primary Unspecified symptom associated with female genital organs [facility] Diagnosis RLQ abdominal pain- Primary Abdominal pain, right lower quadrant Pelvic joint pain, right [facility]* Diagnosis Endometriosis- Primary Endometriosis, site unspecified Preop testing Unspecified pre-operative examination [facility] Diagnosis Endometriosis- Primary Endometriosis, site unspecified Preop testing Unspecified pre-operative examination [facility] Diagnosis Endometriosis Endometriosis, site unspecified [facility] Diagnosis Abdominal pain, right lower quadrant- Primary [facility] Additional Instructions Please arrange a follow-up appointment with your [facility] home therapy teacher.[facility] Work Phone: Hospital Discharge instructions Additional Instructions Take Motrin and Tylenol as needed for mild to moderate pain. Take oxycodone as prescribed for severe pain. Follow-up with Dr. Ness or Dr. Grayson in the office regarding further treatment [facility] Work Phone: Hospital Discharge instructions Additional Instructions Take Phoenix as needed for severe pain, do not drink, drive, operate heavy machinery while taking Continue clindamycin as previously ordered by her dentist Return to emergency room for fever or chills, or dental abscess Follow-up with dentist and oral [facility] Work Phone: Hospital Discharge instructionsAmbulatory Orders* Referral to Allergy/Immunology Time Frame: 12/07/23, Location: None [facility] Work Phone: Hospital Discharge instructions* Attachments The following attachments cannot be sent through Care Everywhere. * Pelvic Pain ([place]izen [place]) [facility] SystemInstructionsNot on filedocumented in this encounterProMediid Health SystemInstructionsNot on filedocumented in this encounterProMedica Health SystemInstructionsNot on filedocumented in this encounterProMediid Health SystemInstructionsNot on filedocumented in this encounterProSouth [facility] Health SystemInstructionsNot on filedocumented in this encounterProSouth [facility] Health SystemInstructionsNot on filedocumented in this encounterProSouth [facility] Health SystemProgress note No data available for this section [facility] Care Reason for referral (narrative)* Consultation (Routine) - New Request Specialty Diagnoses / Procedures Referred By Gina perez Referred To Contact Multispecialty Diagnoses RLQ abdominal pain Pelvic joint pain, right Davi Marie DO [address] [place] [address] Referral ID Status Reason Start Date Expiration Date V isits Requested Visits Authorized [id number] New Request 03/03/2024 03/28/2025 1 1 * Consultation (Routine) - New Request Specialty Diagnoses / Procedures Referred By Contabram t Referred To Contact CHIEF INVESTIGATOR Diagnoses RLQ abdominal pain Pelvic joint pain, right Davi Marie DO [address] [place] [address] Isabell Hodges DO [address] [place] [id number] Referral ID Status Reason Start Date Expiration Date V isits Requested Visits Authorized [id number] New Request 03/03/2024 03/28/2025 1 1 [facility] Summary Purpose Family History No Family History [...] Contact Procedures ECG Jennifer Moore MD [address] [place] [address] Referral ID Status Reason Start Date Expiration Date V isits Requested Visits Authorized [id number] New Request 02/16/2024 03/12/2025 1 1 Reason appt pt is elsiearmando robi to see whomever can see her first pt needs consult to discuss possible injection for right sided bursitis Diagnosis 1 Greater trochanteric bursitis of right hip (M70.61) Referral Organization [facility] [place] Referring Provider First Name Jennifer Referring Provider Last Name Wilber Referring Provider Specialty Family Prac kasi Referred Organization [facility] Referred Provider Chad Luna II Referred Address [address] [place], [place],[address] Referred Provider Specialty Orthopedic S urgery Referral Priority Routine General Notes Angelita Trevino 01/12/2023 03:51:47 PM > referral sent p2p. pt understands that she will be contacted to schedule this appt. Reason appt consult for e zia and treatment of continued cough since covid infection Diagnosis 1 Cough (R05) Referral Organization [facility] [place] Referring Provider First Name Jennifer Referring Provider [...] section and content) DATE CREATED AUTHOR 08/08/2020 [facility] DATE CREATED AUTHOR AUTHOR'S ORGANIZ ATION 05/03/2022 [facility] DATE CREATED AUTHOR AUTHOR'S ORGANIZ ATION 10/19/2022 [facility] DATE CREATED AUTHOR AUTHOR'S ORGANIZ ATION 06/23/2023 [facility] DATE CREATED AUTHOR AUTHOR'S ORGANIZ ATION 09/06/2023 [facility] DATE CREATED AUTHOR AUTHOR'S ORGANIZ ATION 10/21/2023 [facility] DATE CREATED AUTHOR AUTHOR'S ORGANIZ ATION 11/27/2023 [facility] DATE CREATED AUTHOR AUTHOR'S ORGANIZ ATION 03/07/2024 [facility] DATE CREATED AUTHOR AUTHOR'S ORGANIZ ATION 03/30/2024 [facility] DATE CREATED AUTHOR AUTHOR[facility]S ORGANIZ ATION [facility]2024 [facility] DATE CREATED AUTHOR AUTHOR'S ORGANIZ ATION 06/11/2024 [facility] DATE CREATED AUTHOR AUTHOR'S ORGANIZ ATION 06/11/2024 [facility] DATE CREATED AUTHOR AUTHOR'S ORGANIZ ATION 06/28/2024 [facility] DATE CREATED AUTHOR AUTHOR'S ORGANIZ ATION 06/29/2024 [facility] DATE CREATED AUTHOR AUTHOR'S ORGANIZ ATION 06/30/2024 [facility] DATE CREATED AUTHOR AUTHOR'S ORGANIZ ATION 07/01/2024 [facility] Care Teams (unrecognized sec tion [...] Amaury Barlow , DO Emergency Provider Active Electro Mechanical Technologist Relationship Specialty Start Date End Date Jennifer Duran, DO [address] [place] [address] PCP - General 11/27/07 Jennifer Duran, DO [address] [place] [address] Referring Family Practice 04/03/19 Avinash Velásquez MD [address] [place] [address] Referring CHIEF INVESTIGATOR 11/30/21 Electro Mechanical Technologist Relationship Specialty Start Date End Date Jennifer Duran, DO [address] [place] [address] PCP - General 11/27/07 Jennifer Duran, DO [address] [place] [address] Referring Family Medicine 04/03/19 Avinash Velásquez MD [address] [place] [address] Referring CHIEF INVESTIGATOR 11/30/21 Electro Mechanical Technologist Relationship Specialty Start Date End Date Jennifer Duran, DO [address] [place] [address] PCP - General 11/27/07 Jennifer Duran, DO [address] [place] [address] Referring Family Medicine 04/03/19 Avinash Velásquez MD [address] [place] [address] Referring CHIEF INVESTIGATOR 11/30/21 Electro Mechanical Technologist Relationship Specialty Start Date End Date Jennifer Duran, DO [address] [place] [address] PCP - General 11/27/07 Jennifer Duran, DO [address] [place] [address] Referring Family Medicine 04/03/19 Avinash Velásquez MD [address] [place] [address] Referring CHIEF INVESTIGATOR 11/30/21 Electro Mechanical Technologist Relationship Specialty Start Date End Date Jennifer Duran, DO [address] [place] [address] PCP - General 11/27/07 Jennifer Duran, DO [address] [place] [address] Referring Family Medicine 04/03/19 Avinash Velásquez MD [address] [place] [address] Referring CHIEF INVESTIGATOR 11/30/21 Electro Mechanical Technologist Relationship Specialty Start Date End Date Jennifer Duran, DO [address] [place] [address] PCP - General 11/27/07 Jennifer Duran, DO [address] [place] [address] Referring Family Medicine 04/03/19 Avinash Velásquez MD [address] [place] [address] Referring CHIEF INVESTIGATOR 11/30/21 Team Status: Active Member Role Status Dates Jennifer Duran , DO Primary Care Provider Active Yevgeniy Cabrera Jr, MD Emergency Provider Active Kiko Saenz , DO Admit Provider, Attending Provider Active Electro Mechanical Technologist Relationship Specialty Start Date End Date Jennifer Duran, DO [address] [place] [address] PCP - General 11/27/07 Jennifer Duran, DO [address] [place] [address] Referring Family Medicine 04/03/19 Avinash Velásquez MD [address] [place] [place] [address] Referring CHIEF INVESTIGATOR 11/30/21 Team Status: Inactive Member Role Status Dates Jennifer Duran , DO Primary Care Provider Active Elier Jackson , DO Emergency Provider Active Team Status: Active Member Role Status Dates Ming Cihldress , DO Emergency Provider Active Jennifer Duran [...] October 18, 2023 End: October 18, 2023 Electro Mechanical Technologist Relationship Specialty Start Date End Date Jennifer Duran DO [address] [facility] [place] [address] PCP - General Family Medicine 09/14/23 Team [...] March 23, 2024 End: March 23, 2024 Electro Mechanical Technologist Relationship Specialty Start Date End Date No Pcp, [place] [address] PCP - General Family Medicine 03/07/24 Electro Mechanical Technologist Relationship Specialty Start Date End Date No Pcp, [place] [address] PCP - General Family Medicine 03/07/24 Electro Mechanical Technologist Relationship Specialty Start Date End Date No Pcp, [place] [address] PCP - General Family Medicine 03/07/24 Electro Mechanical Technologist Relationship Specialty Start Date End Date No Pcp, [place] [address] PCP - General Family Medicine 04/05/24 Electro Mechanical Technologist Relationship Specialty Start Date End Date No Pcp, [place] [address] PCP - General Family Medicine 06/05/24 Electro Mechanical Technologist Relationship Specialty Start Date End Date No Pcp, [place] [address] PCP - General Family Medicine 06/05/24 Electro Mechanical Technologist Relationship Specialty Start Date End Date No Pcp, [place] [address] PCP - General Family Medicine 06/05/24 Goals [...] encounter No data available for this section No [...] SUCROSE INJECTION PER 1 MG Madyson Ni, SWITCHBOARD TROUBLESHOOTER.[address] [place] [address] Johny Treat Lei [address] [place] [place] [address] Referral ID Status Reason Start Date Expiration Date V isits Requested Visits Authorized [id number] Authorized 03/10/2022 06/12/2022 99 99 Reason Comments [...] 06/09/2024 Reason Onset Date Comments Appointment 06/11/2024 Reason Comments Abdominal Pain Right lower abdomina l pain that radiates to back that began last night. Denies urinary symptoms and NVD. Source Comments (unrecognize d section and content) In the event this informatio n is protected by the Federal Confidentiality of Alcohol and Drug Abuse Patient Records regulations: The Federal rules restrict any use of the information to criminally investigate or prosecute any alcohol or drug abuse patient.[facility] the event this information is protected by the Federal Confidentiality of Alcohol and Drug Abuse Patient Records regulations: The Federal rules restrict any use of the information to criminally investigate or prosecute any alcohol or drug abuse patient.[facility] CampusIn the event this information is protected by the Federal Confidentiality of Alcohol and Drug Abuse Patient Records regulations: The Federal rules restrict any use of the information to criminally investigate or prosecute any alcohol or drug abuse patient.[facility] CampusIn the event this information is protected by the Federal Confidentiality of Alcohol and Drug Abuse Patient Records regulations: The Federal rules restrict any use of the information to criminally investigate or prosecute any alcohol or drug abuse patient.[facility] CampusIn the event this information is protected by the Federal Confidentiality of Alcohol and Drug Abuse Patient Records regulations: The Federal rules restrict any use of the information to criminally investigate or prosecute any alcohol or drug abuse patient.[facility] CampusIn the event this information is protected by the Federal Confidentiality of Alcohol and Drug Abuse Patient Records regulations: The Federal rules restrict any use of the information to criminally investigate or prosecute any alcohol or drug abuse patient.[facility] CampusIn the event this information is protected by the Federal Confidentiality of Alcohol and Drug Abuse Patient Records regulations: The Federal rules restrict any use of the information to criminally investigate or prosecute any alcohol or drug abuse patient.[facility] Ordered Prescriptions (unrec ognized section and content) [...] 50 mg, Oral, ONCE, 1 dose, On [facility] 01/22/24 at 1230 1230 (Given - Provid [...] er: Geri Burciaga RN) Scheduled Medication Order 06/25/2024 06/26/2024 06/27/2024 fentaNYL (SUBLIMAZE) injection 50 mcg (COMPLETED) 50 mcg, IntraVENous, ONCE, 1 dose, On Tue06/27/24 at 1400, If oral and IV narcotics ordered, use oral first and only use IV if oral is ineffective or cannot take oral. Do Not give oral and IV within 1 hour of each other unless specifically ordered. 1357 (Given - Provid er: Nimo De Los Santos RN) fentaNYL (SUBLIMAZE) injection 50 mcg (COMPLETED) 50 mcg, IntraVENous, ONCE, 1 dose, On Tue06/27/24 at 1500, If oral and IV narcotics ordered, use oral first and only use IV if oral is ineffective or cannot take oral. Do Not give oral and IV within 1 hour of each other unless specifically ordered. 1454 (Given - Provid er: Nimo De Los Santos RN) FOR RECORDS PERTAINING TO PATIENTS WHO [...] BE BASED ON THE PRIMARY CLINICAL RECORDS. [facility]. provides no warranty or guarantee of the accuracy or completeness of information in this document.
[2024-07-10] MEDS: HYDROMORPHONE HCL 1 MG/ML CARTRIDGE IM (00:15)
--- NOTE | 2024-07-10 01:12 | ED.GENADUL1 ---
HPI HPI - General Adult General Chief complaint: Abdominal Pain Stated complaint: ABDOMINAL PAIN Time Seen by Provider: 07/09/24 23:30 Source: patient Mode of arrival: walk-in Limitations: no limitations History of Present Illness HPI narrative: 39-year-old female to the emergency department chief complaint of exacerbation of chronic abdominal pain. Patient reports she has been taking her Tylenol, Toradol, tramadol at home with only minimal relief. She reports that she gets flares of abdominal pain related to her endometriosis. She follows extensively with [facility] at [facility] for this. No other symptoms. She reports this is typical for her. She does not want any workup just treatment for the pain. Related Data Home Medications ?Medication ?Instructions ?Recorded ?Confirmed alprazolam 0.25 mg tablet 0.25 mg PO Q8H PRN anxiety 09/20/23 07/09/24 citalopram 20 mg tablet (Celexa) 20 mg PO DAILY 09/20/23 07/09/24 atenolol 25 mg tablet 25 mg PO Q24H 02/11/24 07/09/24 acetaminophen 500 mg tablet mg 07/09/24 gabapentin 300 mg capsule mg 07/09/24 ibuprofen 800 mg tablet mg 07/09/24 Previous Rx's ?Medication ?Instructions ?Recorded ketorolac 10 mg tablet 10 mg PO TID PRN pain #10 tabs 10/22/23 ketorolac 10 mg tablet 10 mg PO Q8H PRN pain 1 day #14 06/27/24 tabs ondansetron 4 mg disintegrating 4 mg PO DAILY PRN nausea and 06/27/24 tablet vomiting #15 tabs Allergies Allergy/AdvReac Type Severity Reaction Status Date / Time morphine Allergy Severe itching Verified 07/09/24 23:35 prochlorperazine (From AdvReac Mild Anxiety Verified 07/09/24 23:35 Compazine) Opioid HPI Opioid Management Most Recent Opioid Data: Last Pain Scale 9 04/12/24 21:24 04/12/24 Last ORT Total Score 2 09/20/23 05:45 09/20/23 Last ORT Risk Category Low Risk 09/20/23 05:45 09/20/23 Review of Systems ROS Status of ROS 10 or more systems reviewed and unremarkable except as noted in history and below [facility] Medical History (Updated 07/09/24 @ 23:58 by Jignesh Dumont MD) Ovarian cyst ?N83.209 - Unspecified ovarian cyst, unspecified side (ICD-10) Endometriosis ?N80.9 - Endometriosis, unspecified (ICD-10) LLQ abdominal pain ?R10.32 - Left lower quadrant pain (ICD-10) Complex cyst of left ovary ?N83.292 - Other ovarian cyst, left side (ICD-10) Toothache ?K08.89 - Other specified disorders of teeth and supporting structures (ICD-10) Surgical History (Updated 09/20/23 @ 06:52 by Marichuy Daily, FER) History of removal of cyst ?Z98.890 - Other specified postprocedural states (ICD-10) History of cholecystectomy ?Z90.49 - Acquired absence of other specified parts of digestive tract (ICD-10) Family History (Updated 09/20/23 @ 05:46 by Marichuy Daily, FER) Family/Other No problems noted. Father Family history of CHF (congestive heart failure) Family history of COPD (chronic obstructive pulmonary disease) Family history of diabetes mellitus Family history of hypertension Family history of myocardial infarction Mother Family history of hypertension Other Family history of cancer Social History Within the past year, how often did you have a drink containing alcohol: monthly or less Within the past year, how many standard drinks containing alcohol did you have on a typical day: 1 or 2 Within the past year, how often did you have six or more drinks on one occasion: never Total score: 0 Score interpretation: A score less than 3 is consistent with normal alcohol consumption. Smoking status: Never smoker Non-prescribed substance use: denies use Highest level of school completed/degree received: Associate degree: academic program Are you now , , , , never or living with a partner: In a typical week, how many times do you talk on the telephone with family, friends, or neighbors: 3 or more times per week How often do you get together with friends or relatives: 3 or more times per week Little interest or pleasure in doing things: not at all Feeling down, depressed, or hopeless: not at all Feel stressed/tense/nervous/anxious/difficulty sleeping: not at all Do you think of yourself as: straight/heterosexual Gender Identity: female Exam Narrative Exam Narrative: VITALS: I have reviewed the triage vital signs. GENERAL: Well developed, well appearing adult in no acute distress. NEURO: Alert and oriented. Moves all extremities. Face is symmetric and expressive. EYES: PERRL. No scleral icterus or conjunctival injection. No discharge. HENT: Normocephalic, atraumatic. Hearing is grossly intact. Nares grossly patent and without discharge. Mucous membranes moist. NECK: No JVD. Patient moves neck without restriction. CARDIO: Rhythm regular. Normal rate. No murmur, rub, or gallop. Pulses equal bilaterally in the upper and lower extremity. No lower extremity edema. PULM: Lungs clear to auscultation in all [place]. No wheezes, rales, or rhonchi. No conversational dyspnea. No splinting, stridor, or accessory muscle use. GI/: Abdomen is soft and non-tender. Normoactive bowel sounds. EXTREMITIES: Symmetric muscle bulk. No joint swelling. No clubbing, cyanosis, or deformity. SKIN: Warm and dry. Normal turgor. No rash or lesions appreciated. PSYCH: Mood, affect, and interaction is appropriate to the setting. Constitutional Vital Signs, click to edit/add: Last Vital Signs Temp 98.8 F 07/09/24 23:30 Pulse 102 H 07/09/24 23:30 Resp 18 07/09/24 23:30 BP 162/90 H 07/09/24 23:30 Pulse Ox 100 07/09/24 23:30 O2 Del Method Room Air 07/09/24 23:30 Course Vital Signs Vital signs: Vital Signs Temperature 98.8 F 07/09/24 23:30 Pulse Rate 102 H 07/09/24 23:30 Respiratory Rate 18 07/09/24 23:30 Blood Pressure 162/90 H 07/09/24 23:30 Pulse Oximetry 100 07/09/24 23:30 Oxygen Delivery Method Room Air 07/09/24 23:30 Temperature 98.8 F 07/09/24 23:30 Pulse Rate 102 H 07/09/24 23:30 Respiratory Rate 18 07/09/24 23:30 Blood Pressure 162/90 H 07/09/24 23:30 Pulse Oximetry 100 07/09/24 23:30 Oxygen Delivery Method Room Air 07/09/24 23:30 Medical Decision Making MDM Narrative Medical decision making narrative: Well-appearing 39-year-old female to the emergency department with chief complaint of acute on chronic abdominal pain. Vital stable, the patient is afebrile. Her abdominal examination is benign. She is having a flare of what she believes is her endometriosis pain. I offered workup and she declines. She would like a dose of IM pain medication and discharge. I believe this is reasonable. A IM dose of Dilaudid is ordered to break the pain cycle 4. She will continue her home medications. She will follow-up with her [facility]. Return precautions were discussed. All questions were answered. The patient was discharged home Medical Records Medical records reviewed: Yes I reviewed the patient's medical records Discharge Plan Discharge Chief Complaint: Abdominal Pain Clinical Impression: Abdominal pain Patient Disposition: Home, Self-Care Time of Disposition Decision: 23:57 Condition: Good Mode of Transportation: Private Vehicle Prescriptions / Home Meds: No Action ketorolac 10 mg tablet 10 mg PO TID PRN (Reason: pain) Qty: 10 0RF ketorolac 10 mg tablet 10 mg PO Q8H PRN (Reason: pain) 1 Days Qty: 14 0RF ondansetron 4 mg tablet,disintegrating 4 mg PO DAILY PRN (Reason: nausea and vomiting) Qty: 15 0RF ibuprofen 800 mg tablet acetaminophen 500 mg tablet gabapentin 300 mg capsule alprazolam 0.25 mg tablet 0.25 mg PO Q8H PRN (Reason: anxiety) citalopram [Celexa] 20 mg tablet 20 mg PO DAILY atenolol 25 mg tablet 25 mg PO Q24H Print Language: Lithuanian Instructions: Abdominal Pain (ED) Additional Instructions: Call the office of your primary care doctor to arrange for follow-up within the above-stated timeframe. Your ED visit was focused on your acute issue and does not replace primary care. You should review your labs, imaging, and diagnoses from this ED visit with your primary care physician. There may be non-emergent/ incidental findings that need further evaluation. You should review your vital signs including blood pressure with your PCP. If you were prescribed medications you should discuss possible side-effects and drug interactions with your pharmacist. Call 911 or go to the nearest Emergency Department if you develop any new or worsening symptoms. Seek immediate medical attention if you develop: worsening abdominal pain, new or worsening nausea, new or worsening vomiting, new or worsening diarrhea, chest pain, shortness of breath, pain with urination, problems urinating, fever, chills, weakness, or any new or worsening symptoms. Referrals: JENNIFER DURAN [Primary Care Provider] - 1 week Discharge Date/Time: 07/10/24 00:29
== END 2024-07-10 00:29 | disposition home or self-care (01) ==
PROVIDERS: Emergency Provider Student in an Organized Health Care Education/Training Program; PCP Family Medicine
DX: R10.9 Unspecified abdominal pain (principal); G89.29 Other chronic pain; N80.9 Endometriosis, unspecified; Z90.49 Acquired absence of other specified parts of digestive tract
CPT/HCPCS: 96372; 99284; J1171

== ENCOUNTER 2024-07-11 01:16 | Emergency (ER) | payer BC, SELFPAY ==
[2024-07-11 01:19] VITALS: BP 155/98; PULSE 101; TEMP 36.5; O2SAT 98; BMI 30.8
--- OUTSIDE RECORDS SUMMARY | 2024-07-11 01:44 | XMS_ITS | CCD ---
Author Organization [facility] Care Team Providers Care Pantomimist Name Role Phone DO Jennifer Duran Primary Care Provider DO Augustus Santiago Attending Provider DO Amaury Barlow Emergency Provider Jennifer Duran Primary Care Physician [phone] Jennifer Duran Unavailable DO Jennifer Duran Primary Care Provider DO Jennifer Duran Attending Provider Jennifer Duran DO Primary Care Provider Jennifer Duran DO Unavailable Didier BARNETT, Penola P Unavailable [phone] Jennifer Duran DO Primary Care Provider Jennifer Duran DO Unavailable DO Jennifer Duran Primary Care Provider DO Jennifer Duran Attending Provider MD Yevgeniy Cabrera Jr Emergency Provider DO Kiko Saenz Admit Provider DO Kiko Saenz Attending Provider Jennifer Duran DO Primary Care Provider Jennifer Duran DO Unavailable Didier BARNETT, Penola P Unavailable [phone] JENNIFER DURAN Primary Care Unavailable MADYSON [...] Unavailable DO Jennifer Duran Primary Care Provider [phone] DO Elier bacon Emergency Provider [phone] DO Ming Childress Emergency Provider MD Megan Garcia Admit Provider [phone] MD Megan Muniz Attending Provider DO Kiko Saenz Other Provider MD Christi Aquino Attending Provider DO Jaime Aleman Attending Provider LLC, GENERIC Primary Care Physician Unavailab DO Jennifer Rm Primary Care Provider [phone] [facility], DO Elier Leos Emergency Provider DO Jaime Aleman Attending Provider [phone] DO Ming Childress Emergency Provider UnavaMD Megan Lira Admit Provider [phone] MD Christi Aquino Attending Provider Visctigre, DO Hoover Other Provider NO FAMILY, PHYSICIAN Primary Care Provider Unava joe SEN MD, EVGENY Attending Unavailable JENNIFER DURAN Primary Care Unavailable [facility] Emergency Provider [phone] NONE, XXXX Primary Care Physician Unavailab DESTINI Sheehan Attending Unavailable TARUN BRADEN Attending Unavailable Jennifer Duran DO Primary Care Provider Unavail able DO Jennifer Duran Primary Care Provider CATY Corbett Emergency Provider [phone] DO Jennifer Duran Attending Provider [phone] Jennifer Duran Primary Care Unavailable Megan Muniz [...] Attending Unavailable Konstantin Penny Attending Unavailable Ivana, Rtiesh SEbenezer Attending Unavailable Jignesh Dumont Attending Unavailable [...] Other: See Comments, Itching (finding), Itching, Hives [facility] (19 sources) Atenolol Drug Allergy 04-18-20 Dr. Cantu/ [facility] (6 sources) seasoninig Propensity to adverse reactions Unknown [facility] Other (1 source) Morphine Drug Allergy 07-28-19 [facility] (18 sources) Seasonal allergy Propensity to adverse reactions 04-18-20 Unknown, Watery Eye [facility] (20 sources) Prochlorperazine; Translations: [prochlorperazine ] Drug Allergy 05-25-20 Feeling nervous (finding), Anxiety [facility] (1 source) Morphine Drug Allergy 04-30-20 [facility] (3 sources) Atenolol Propensity to adverse reactions to drug 04-18-20 [facility] (3 sources) Phenothiazine Propensity to adverse reactions to drug 05-25-20 Anxiety, Itching [facility] (3 sources) Octacosanol Propensity to adverse reactions to drug 04-18-20 [facility] (2 sources) No Known Medication Allergies; Translations: [No Known Medication Allergies] Propensity to adverse reactions (disorder) [facility] Medications Current Medications Medication Drug [...] for 3 day(s), 12 tab(s), Refill(s) 0, [facility]/pharmacy #[id number], 165.1, cm, 07/31/23 15:42:00 [...] day(s), # 250 mL, Refills(s) 0, Pharmacy: [facility]/pharmacy #[id number], 166, cm, 12/04/21 12:54:00 [...] for 7 day(s), 14 tab(s), Refill(s) 0, [facility]/pharmacy #[id number], 165.1, cm, 02/13/24 0:28:00 [...] q12hr, # 20 tab(s), Refills(s) 0, Pharmacy: [facility]/pharmacy #[id number], 165, cm, 09/26/23 14:18:00 EDT, Height/Length Dosing, 81.2, kg, 09/26/23 14:18:00 EDT, Weight Dosing Start Date: 09/26/23 Status: Ordered docusate sodium 50 mg / sennosides, mcc 8.6 mg oral tablet (4 sources) Start: [...] April 28, 2022 1:50am 84 hr estradiol 0.04714 mg/hr / norethindrone acetate 0.61010 mg/hr transdermal system (4 sources) Estrogen Start: [...] day(s), # 20 tab(s), Refills(s) 0, Pharmacy: [facility]/pharmacy #[id number], 165, cm, 09/26/23 14:18:00 [...] for 10 day(s), 22 gm, Refill(s) 0, [facility]/pharmacy #[id number], 166, cm, 12/04/21 12:54:00 [...] by Nasal route once for 1 dose. [place] into the nose as directed. Call 911. [...] day(s), # 12 cap(s), Refills(s) 0, Pharmacy: [facility]/pharmacy #[id number], 165.1, cm, 04/24/23 13:32:00 EST, Height/Length Dosing, [...] 12 March 29, 2023 polyethylene glycol 3350 74531 mg powder for oral solution (2 sources) Osmotic Laxative Start: 09-26-2023 End: 10-03-2023 take 17 g by mouth once daily Miralax 3350 17 gram packet 17 gm, Oral, Daily, X 7 day(s), # 119 gm, Refills(s) 0, Pharmacy: [facility]/pharmacy #[id number], 165, cm, 09/26/23 14:18:00 [...] Drug Class(es) Dates Sig (Normalized) Sig (Original) [id number] 200 actuat albuterol 0.09 mg/actuat metered dose [...] 30 mg oral tablet (7 sources) Uncompetitive E-fixanv-E-asparta te Receptor Antagonist, Sigma-1 Agonist Start: 08-11-2021 take 1 tablet by mouth every six hours as needed [place] DMT 30-30 MG 1 tablet Orally q6 [...] 2024 ED Clinical Summary ED Clinical Summary [address] [id number] ED Clinical Summary Person Information Name: ANTONIA NOYOLA/NewMary Grace Age: 39 Years : 1985 Sex: Female Language: Lebanese PCP: NONE, XXXX Marital Status: Visit Id: [...] 01:38:52 06/28/2024 01:38:52 06/28/2024 01:38:52 ADDRESS: [address] [place] [id number] [facility] DOC NOTES: MEDICAL INFORMATION: Prescriptions Given: Medications to Continue with No Changes Other Medications acetaminophen-oxycodon e (Percocet 5 mg-325 mg oral tablet) 1 Tablets By Mouth every 8 hours for 3 Days. Refills: 0. diflunisal (diflunisal 500 mg Tab) 1 Tablets By Mouth every 12 hours. Refills: 0. PATIENT EDUCATION INFORMATION: Instructions: Abdominal Pain, Adult, Rgxx-rt-Tugm Follow up: With: Address: When: [address] [place] [address] Business (1) In 3 days 07/01/2024 Comments: Please follow-up with your primary care doctor and CONVENTION WORKER for further evaluation and management. Return to the ED for any new or worsening symptoms. With: Address: When: XXXX NONE , [place] In 3 days DIAGNOSIS: Abdominal pain; Nausea Normal [facility] ED Note-Physicianon 06-28-19 ED Note-Physician ED Note-Physician [...] rebound syndrome and follows with OB in [place]. Review of Systems A 10 point review [...] and Complexity of Problems Differential Diagnosis: [] [facility] Data External documents reviewed: [] My [...] when reviewing her OARRS. I did review [facility] patient [facility]. Discussed with the patient she states [...] prescription medications Follow-up With When Contact Information [employer] In 3 days 07/01/[address] [place], [place] [id number]- Business (1) Additional Instructions: Please follow-up with your primary care doctor and CONVENTION WORKER for further evaluation and management. Return to the ED for any new or worsening symptoms. XXXX NONE In 3 days [place] Additional Instructions: Patient Education Abdominal Pain, Adult, Bkki-nh-Oovb Problem List/Past (more content not included)... Normal [facility] Comment on above: Result Comment: Elec tronically Signed By: Jordyn Willett DO\.br\Date and Time Signed: 06/28/24 03:41 EST ED Patient Summaryon 025 ED Patient Summary ED Patient Summary [address] [id number] Patient Discharge Instructions Person Information Name: ANTONIA NOYOLA Age: 39 Years Arrival Date: 06/27/2024 21:46:23 Discharge Diagnosis: Abdominal pain; Nausea Primary Care Physician: NONE, XXXX Provider Information Primary Provider: Jordyn Willett DO [employer] Assistant:None The exam and treatment you received in the Emergency Department were for an urgent problem and are not intended as complete care. It is important that you follow up with a doctor, nurse practitioner, or physician???s corporate legal assistant for ongoing care. If your symptoms become worse or you do not improve as expected and you are unable to reach your usual health care provider, you should return to the Emergency Department. We are available 24 hours a day. ANTONIA NOYOLA has been given the following list of patient education materials, prescriptions and follow-up instructions: Follow-up Instructions: With: Address: When: [place] [facility] [place] [address] Business (1) In 3 days 07/01/2024 Comments: Please follow-up with your primary care doctor and CONVENTION WORKER for further evaluation and management. Return to the ED for any new or worsening symptoms. With: Address: When: XXXX [facility] , [place] In 3 days In the event that this physician does not participate in your insurance network, please consult with your insurance company to find a nearby participating provider. Patient Education Materials: Abdominal Pain, Adult, Ihue-ei-Slxw A MESSAGE TO ALL PATIENTS REGARDING OPIOIDS PRESCRIPTION OPIOIDS: WHAT YOU NEED TO KNOW Prescription opioids can be used to help relieve xueneiti-zk-nxjfor pain and are often prescribed following a [...] Administration (www.fda.gov/Boris (more content not included)... Normal [facility] BMPon 06-27-2024 Anion gap [Moles/Vol] 14 mmol/L Normal 6-16 [facility] Comment on above: Performed By: #### 2 [id number] #### [facility] [address] [place] [address] Calcium [Mass/Vol] 10.3 mg/dL Normal 8.9-11.1 [facility] Comment on above: Performed By: #### 2 [id number] #### [facility] [address] [place] [address] Chloride [Moles/Vol] 106 mmol/L Normal 101-111 [facility] Comment on above: Performed By: #### 2 [id number] #### [facility] [address] [place] [address] CO2 [Moles/Vol] 23 mmol/L Normal 21-31 [facility] Comment on above: Performed By: #### 2 [id number] #### [facility] [address] [place] [address] Creatinine [Mass/Vol] 0.9 mg/dL Normal 0.5-1.3 [facility] Comment on above: Performed By: #### 2 [id number] #### [facility] [address] [place] [address] Glucose [Mass/Vol] 108 mg/dL Normal 55-199 [facility] Comment on above: Performed By: #### 2 [id number] #### [facility] [address] [place] [address] Potassium [Moles/Vol] 3.9 mmol/L Normal 3.5-5.3 [facility] Comment on above: Performed By: #### 2 [id number] #### [facility] [address] [place] [address] Sodium [Moles/Vol] 139 mmol/L Normal 135-145 [facility] Comment on above: Performed By: #### 2 [id number] #### [facility] [address] [place] [address] Urea nitrogen [Mass/Vol] 7 mg/dL Normal 5-21 [facility] Comment on above: Performed By: #### 2 [id number] #### [facility] [address] [place] [address] Urea nitrogen/Creatinine [Mass ratio] 8 No Units Low 10-20 [facility] Comment on above: Performed By: #### 2 [id number] #### [facility] [address] [place] [address] CBC w/ Auto Diffon 5 Basophils/100 WBC (Bld) 1.1 % Normal 0.0-2.0 [facility] Comment on above: Performed By: #### 2 [id number] #### [facility] [address] [place] [address] Basophils/Leukocytes Auto (Bld) [Pure # fraction] 0.1 E9/L Normal 0.0-0.2 [facility] Comment on above: Performed By: #### 2 [id number] #### [facility] [address] [place] [address] Eosinophils (Bld) [#/Vol] 0.0 E9/L Normal 0.0-0.5 [facility] Comment on above: Performed By: #### 2 [id number] #### [facility] [address] [place] [address] Eosinophils/100 WBC (Bld) 0.2 % Normal 0.0-8.0 [facility] Comment on above: Performed By: #### 2 [id number] #### [facility] [address] [place] [address] Erythrocyte distribution width (RBC) [Ratio] 19.8 % High 10.9-14.2 [facility] Comment on above: Performed By: #### 2 [id number] #### [facility] [address] [place] [address] Hematocrit (Bld) [Volume fraction] 37.8 % Normal 34.0-46.0 [facility] Comment on above: Performed By: #### 2 803811 #### [facility] [address] [place] [address] Hemoglobin (Bld) [Mass/Vol] 12.0 g/dL Normal 12.0-16.0 [facility] Comment on above: Performed By: #### 2 839074 #### [facility] [address] [place] [address] Hypochromia Auto Ql (Bld) PRESENT Invalid Interpretation Code [facility] Comment on above: Performed By: #### 2 [id number] #### [facility] [address] [place] [address] Lymphocytes (Bld) [#/Vol] 1.7 E9/L Normal 1.0-4.0 [facility] Comment on above: Performed By: #### 2 214362 #### [facility] [address] [place] [address] Lymphocytes/100 WBC (Bld) 23.6 % Normal 14.0-50.0 [facility] Comment on above: Performed By: #### 2 [id number] #### [facility] [address] [place] [address] MCH (RBC) [Entitic mass] 22.8 pg Low 27.0-34.0 [facility] Comment on above: Performed By: #### 2 [id number] #### [facility] [address] [place] [address] MCHC (RBC) [Mass/Vol] 31.8 g/dL Normal 31.4-36.0 [facility] Comment on above: Performed By: #### 2 747668 #### [facility] [address] [place] [address] MCV (RBC) [Entitic vol] 71.7 fL Low 80.0-100.0 [facility] Comment on above: Performed By: #### 2 439009 #### [facility] [address] [place] [address] Microcytes Ql (Bld) PRESENT Invalid Interpretation Code [facility] Comment on above: Performed By: #### 2 [id number] #### [facility] [address] [place] [address] Monocytes (Bld) [#/Vol] 0.3 E9/L Normal 0.2-1.0 [facility] Comment on above: Performed By: #### 2 849730 #### [facility] [address] [place] [address] Neutrophils (Bld) [#/Vol] 5.0 E9/L Normal 2.0-7.5 [facility] Comment on above: Performed By: #### 2 597371 #### [facility] [address] [place] [address] Neutrophils/100 WBC (Bld) 71.3 % Normal 36.0-75.0 [facility] Comment on above: Performed By: #### 2 [id number] #### [facility] [address] [place] [address] Platelet 552.0 E9/L High 150.0-500.0 [facility] Comment on above: Performed By: #### 2 [id number] #### [facility] [address] [place] [address] Platelet mean volume (Bld) [Entitic vol] 7.5 fL Normal 6.4-10.8 [facility] Comment on above: Performed By: #### 2 488157 #### [facility] [address] [place] [address] RBC (Bld) [#/Vol] 5.3 E12/L Normal 4.3-5.9 [facility] Comment on above: Performed By: #### 2 [id number] #### [facility] [address] [place] [address] RBC size Nom (Bld) SEE MORPHOLOGY Invalid Interpretation Code [facility] Comment on above: Performed By: #### 2 [id number] #### [facility] [address] [place] [address] WBC corrected for nucl RBC Auto (Bld) [#/Vol] 7.0 E9/L Normal 4.0-11.0 [facility] Comment on above: Performed By: #### 2 [id number] #### [facility] [address] [place] [address] CBC with Diffon 06-27-2024 Basophils (Bld) [#/Vol] 0.09 10*3/uL [facility] Basophils/100 WBC (Bld) 1 % 0 - 2 % [facility] Eosinophils (Bld) [#/Vol] 0.06 10*3/uL [facility] Eosinophils/100 WBC (Bld) 1 % 1 - 4 % [facility] Erythrocyte distribution width (RBC) [Ratio] 17.9 % High 11.8 - 14.4 % [facility] Hematocrit (Bld) [Volume fraction] 35.1 % Low 36.3 - 47.1 % [facility] Hemoglobin (Bld) [Mass/Vol] 10.6 g/dL Low 11.9 - 15.1 g/dL [facility] Immature granulocytes (Bld) [#/Vol] [facility] Immature granulocytes/100 WBC (Bld) 0 % 0 [facility] Interpretation and review of laboratory results Abnormal [facility] Lymphocytes/100 WBC (Bld) 50 % High 24 - 43 % [facility] Lymphocytes/100 WBC (Bld) 3.25 % [facility] MCH (RBC) [Entitic mass] 22.3 pg Low 25.2 - 33.5 pg [facility] MCHC (RBC) [Mass/Vol] 30.2 g/dL 28.4 - 34.8 g/dL [facility] MCV (RBC) [Entitic vol] 73.9 fL Low 82.6 - 102.9 fL [facility] Monocytes/100 WBC (Bld) 7 % 3 - 12 % [facility] on [facility] Monocytes/100 WBC (Bld) 0.48 % B on [facility] Neutrophils/100 WBC (Bld) 41 % 36 - 65 % [facility] Nucleated RBC/100 WBC (Bld) [Ratio] 0.0 % 0.0 per 100 WBC [facility] Platelet mean volume (Bld) [Entitic vol] 9.3 fL 8.1 - 13.5 fL [facility] Platelets (Bld) [#/Vol] 533 10*3/uL High [facility] RBC (Bld) [#/Vol] 4.75 10*6/uL 3.95 - 5.1 1 m/uL [facility] Segmented neutrophils/100 WBC (Bld) 2.65 % [facility] WBC other (Bld) [#/Vol] 6.5 [facility] Abs. Basophil 0.09 k/uL Normal 0.00-0.20 [facility] Comment on above: Performed By: #### C DP, CP, LIP #### [address] [place], [place] [id number] Vacuum Metalizer Operator: Jennifer Freire MD Abs.Imm.Granulocyte <0.03 Normal 0.00-0.30 [facility] Comment on above: Performed By: #### C DP, CP, LIP #### [address] [place] [id number] Vacuum Metalizer Operator: Jennifer Freire MD Abs.Neutrophil (Seg) 2.65 k/uL Normal 1.50-8.10 [facility] Comment on above: Performed By: #### C DP, CP, LIP #### [address] [place] [id number] Vacuum Metalizer Operator: Jennifer Freire MD Basophils/100 WBC (Bld) 1 % Normal 0-2 [facility] Comment on above: Performed By: #### C DP CP, LIP #### [address] [place] [address] Vacuum Metalizer Operator: Jennifer Freire MD Eosinophils (Bld) [#/Vol] 0.06 10*3/uL Normal 0.00-0.44 [facility] Comment on above: Performed By: #### C DP, CP, LIP #### [address] [place], [facility]83 Vacuum Metalizer Operator: Jennifer Freire MD Eosinophils/100 WBC (Bld) 1 % Normal 1-4 [facility] Comment on above: Performed By: #### C DP, CP, LIP #### [address] [place], [place] [address] Vacuum Metalizer Operator: Jennifer Freire MD Erythrocyte distribution width (RBC) [Ratio] 17.9 % High 11.8-14.4 [facility] Comment on above: Performed By: #### C DP, CP, LIP #### [facility] [address] [place], [place] [address] Vacuum Metalizer Operator: Jennifer Freire MD Hematocrit (Bld) [Volume fraction] 35.1 % Low 36.3-47.1 [facility] Comment on above: Performed By: #### C DP, CP, LIP #### [facility] [address] [place], [place] [address] Vacuum Metalizer Operator: Jennifer Freire MD Hemoglobin (Bld) [Mass/Vol] 10.6 g/dL Low 11.9-15.1 [facility] Comment on above: Performed By: #### C DP, CP, LIP #### [facility] [address] [place], [facility]83 Vacuum Metalizer Operator: Jennifer Freire MD Immature granulocytes/100 WBC (Bld) 0 % Normal 0 [facility] Comment on above: Performed By: #### C DP, CP, LIP #### [address] [place], [facility]83 Vacuum Metalizer Operator: Jennifer Freire MD Lymphocytes (Bld) [#/Vol] 3.25 10*3/uL Normal 1.10-3.70 [facility] Comment on above: Performed By: #### C DP, CP, LIP #### [facility] [address] [place] [address] Dr. [place], [facility]83 Vacuum Metalizer Operator: Jennifer Freire MD Lymphocytes/100 WBC (Bld) 50 % High 24-43 [facility] Comment on above: Performed By: #### C DP, CP, LIP #### [facility] [address] [place], [place] [address] Vacuum Metalizer Operator: Jennifer Freire MD MCH (RBC) [Entitic mass] 22.3 pg Low 25.2-33.5 [facility] Comment on above: Performed By: #### C DP, CP, LIP #### [facility] [address] [place] [address] Vacuum Metalizer Operator: Jennifer Freire MD MCHC (RBC) [Mass/Vol] 30.2 g/dL Normal 28.4-34.8 [facility] Comment on above: Performed By: #### C DP, CP, LIP #### [facility] [address] [place], [place] [address] Vacuum Metalizer Operator: Jennifer Freire MD MCV (RBC) [Entitic vol] 73.9 fL Low 82.6-102.9 [facility] Comment on above: Performed By: #### C DP, CP, LIP #### [address] [place] [address] Vacuum Metalizer Operator: Jennifer Freire MD Monocytes (Bld) [#/Vol] 0.48 10*3/uL Normal 0.10-1.20 [facility] Comment on above: Performed By: #### C DP, CP, LIP #### [address] [place], [place] [address] Vacuum Metalizer Operator: Jennifer Freire MD Monocytes/100 WBC (Bld) 7 % Normal 3-12 [facility] Comment on above: Performed By: #### C DP, CP, LIP #### [address] [place], [place] [address] Vacuum Metalizer Operator: Jennifer Freire MD Neutrophil (Seg) 41 % Normal 36-65 [facility] Comment on above: Performed By: #### C DP, CP, LIP #### [address] [place] [address] Vacuum Metalizer Operator: Jennifer Freire MD NRBC Automated 0.0 per 100 WBC Normal 0.0 [facility] Comment on above: Performed By: #### C DP, CP, LIP #### [address] [place], [place] [id number] Vacuum Metalizer Operator: Jennifer Freire MD Platelet mean volume (Bld) [Entitic vol] 9.3 fL Normal 8.1-13.5 [facility] Comment on above: Performed By: #### C DP, CP, LIP #### [facility] [address] [place], [place] [id number] Vacuum Metalizer Operator: Jennifer Freire MD Platelets (Bld) [#/Vol] 533 10*3/uL High 138-453 [facility] Comment on above: Performed By: #### C DP, CP, LIP #### [facility] [address] [place] [address] Vacuum Metalizer Operator: Jennifer Freire MD RBC (Bld) [#/Vol] 4.75 10*6/uL Normal 3.95-5.11 [facility] Comment on above: Performed By: #### C MILLIE CP, LIP #### [facility] [address] [place], [place] [id number] Vacuum Metalizer Operator: Jennifer Freire MD WBC (Bld) [#/Vol] 6.5 10*3/uL Normal 3.5-11.3 [facility] Comment on above: Performed By: #### C DP, CP, LIP #### [facility] [address] [place], [place] [id number] Vacuum Metalizer Operator: Jennifer Freire MD CHEMISTRYOrdered By: SYSTEM SYSTEM [...] [Mass/Vol] 4.2 g/dL 3.5 - 5.2 g/dL [facility] Albumin/Globulin [Mass ratio] 1.3 {ratio} 1.0 - 2.5 [facility] ALP [Catalytic activity/Vol] 77 U/L 35 - 104 U/L [facility] ALT [Catalytic activity/Vol] 19 U/L 10 - 35 U/L [facility] Anion gap [Moles/Vol] 11 mmol/L 9 - 16 mmol/L [facility] AST [Catalytic activity/Vol] 24 U/L 10 - 35 U/L [facility] Bilirubin [Mass/Vol] mg/dL 0.00 - 1.20 mg/dL [facility] Calcium [Mass/Vol] 9.4 mg/dL 8.6 - 10. 4 mg/dL [facility] Chloride [Moles/Vol] 105 mmol/L 98 - 10 7 mmol/L [facility] CO2 [Moles/Vol] 24 mmol/L 20 - 31 mmol/L [facility] Creatinine [Mass/Vol] 0.7 mg/dL 0.50 - 0.90 mg/dL [facility] Est, Glojanak Carrizalest Rate - PINF [facility] Comment on above: These results are [...] [Mass/Vol] 79 mg/dL 74 - 99 mg/dL [facility] Potassium [Moles/Vol] 3.7 mmol/L 3.7 - 5.3 mmol/L [facility] Comment on above: Specimen hemolysis h as exceeded the interference as defined by Ji. Value may be falsely increased. Suggest recollection if clinically indicated. Protein [Mass/Vol] 7.4 g/dL 6.6 - 8.7 g/dL [facility] Sodium [Moles/Vol] 140 mmol/L 136 - 145 mmol/L [facility] Urea nitrogen [Mass/Vol] 8 mg/dL 6 - 20 mg/dL [facility] Urea nitrogen/Creatinine [Mass ratio] 11 mg/mg 9 - 20 [facility] Comp Metabolic Profon 2024 Albumin [Mass/Vol] 4.2 g/dL Normal 3.5-5.2 [facility] Comment on above: Performed By: #### C DP, CP, LIP #### [facility] [address] [place], [place] [phone] [employer] Operator: Jennifer Freire MD Albumin/Glob Ratio 1.3 Normal 1.0-2.5 [facility] Comment on above: Performed By: #### C DP, CP, LIP #### [facility] [address] [place] [address] [employer] Operator: Jennifer Freire MD Alkaline Phos 77 U/L Normal 35-104 [facility] Comment on above: Performed By: #### C DP, CP, LIP #### [facility] [address] [place], [place] [address]83 [employer] Operator: Jennifer Freire MD ALT [Catalytic activity/Vol] 19 U/L Normal 10-35 [facility] Comment on above: Performed By: #### C DP, CP, LIP #### [facility] [address] [place], [place] 9000383 [employer]uum [employer] Operator: Jennifer Freire MD Anion gap [Moles/Vol] 11 mmol/L Normal 9-16 [facility] Comment on above: Performed By: #### C DP, CP, LIP #### [facility] [address] [place], [place] [phone] [employer] Operator: Jennifer Freire MD AST [Catalytic activity/Vol] 24 U/L Normal 10-35 [facility] Comment on above: Performed By: #### C DP, CP, LIP #### [facility] [address] [place], [place] [phone] [employer] Operator: Jennifer Freire MD Bilirubin [Mass/Vol] mg/dL Normal 0.00-1.20 [facility] Comment on above: Performed By: #### C DP, CP, LIP #### [facility] [address] [place], [place] [phone] [employer] Operator: Jennifer Freire MD BUN/CRE Ratio 11 Normal 9-20 [facility] Comment on above: Performed By: #### C DP, CP, LIP #### [facility] [address] [place], [place] [address]83 [employer] Operator: Jennifer Freire MD Calcium [Mass/Vol] 9.4 mg/dL Normal 8.6-10.4 [facility] Comment on above: Performed By: #### C DP, CP, LIP #### [facility] [address] [place], [place] [phone] [employer] Operator: Jennifer Freire MD Chloride [Moles/Vol] 105 mmol/L Normal 98-107 [facility] Comment on above: Performed By: #### C DP, CP, LIP #### [facility] [address] [place], [place] [phone] [employer] Operator: Jennifer Freire MD CO2 [Moles/Vol] 24 mmol/L Normal 20-31 [facility] Comment on above: Performed By: #### C DP, CP, LIP #### [facility] [address] [place], [place] [phone] Vac[employer] Operator: Jennifer Freire MD Creatinine [Mass/Vol] 0.7 mg/dL Normal 0.50-0.90 [facility] Comment on above: Performed By: #### C DP, CP, LIP #### [facility] [address] [place] [address] Vac[employer] Metalizer Operator: Jennifer Freire MD GFR/1.73 sq M.predicted among non-blacks MDRD (S/P/Bld) [Vol rate/Area] mL/min/{1.73_m2} Normal >60 [facility] Comment on above: Result Comment: These [...] By: #### C DP, CP, LIP #### [facility] [address] [place], [place] [phone] [employer] Operator: Jennifer Freire MD Glucose [Mass/Vol] 79 mg/dL Normal 74-99 [facility] Comment on above: Performed By: #### C DP CP, LIP #### [address] [place] [address] Vacuum Metalizer Operator: Jennifer Freire MD Potassium [Moles/Vol] 3.7 mmol/L Normal 3.7-5.3 [facility] Comment on above: Result Comment: Spec imen hemolysis has exceeded the interference as defined by Ji. Value may be falsely increased. Suggest recollection if clinically indicated. Performed By: #### C DP CP, LIP #### [address] [place] [address] Vac[employer] Operator: Jennifer Freire MD Protein [Mass/Vol] 7.4 g/dL Normal 6.6-8.7 [facility] Comment on above: Performed By: #### C DP CP, LIP #### [facility] [address] [place], [place] [id number] Vacuum Metalizer Operator: Jennifer Freire MD Sodium [Moles/Vol] 140 mmol/L Normal 136-145 [facility] Comment on above: Performed By: #### C DP, CP, LIP #### [address] [place] [address] Vacuum Metalizer Operator: Jennifer Freire MD Urea nitrogen [Mass/Vol] 8 mg/dL Normal 6-20 [facility] Comment on above: Performed By: #### C DP CP, LIP #### [facility] [address] [place] [address] Vacuum Metalizer Operator: Jennifer Freire MD [facility] 06-27-2024 Tube Collected Plasma Yes Invalid Interpretation Code [facility] Comment on above: Performed By: #### 1 [id number] #### [facility] [address] [place] [address] HEMATOLOGYOrdered By: SYSTEM SYSTEM on 06-27-2024 Basophils/100 [...] 06-27-2024 Albumin [Mass/Vol] 5.0 g/dL Normal 3.3-5.0 [facility] Comment on above: Performed By: #### 2 [id number] #### [facility] [address] [place] [address] Albumin/Globulin (S) [Mass conc ratio] 1.4 Normal 1.1-2.2 [facility] Comment on above: Performed By: #### 2 [id number] #### [facility] [address] [place] [address] ALP [Catalytic activity/Vol] 80 Int._Unit/L Normal 21-98 [facility] Comment on above: Performed By: #### 2 [id number] #### [facility] [address] [place] [address] ALT No additional P-5'-P [Catalytic activity/Vol] 15 Int._Unit/L Normal 6-46 [facility] Comment on above: Performed By: #### 2 [id number] #### [facility] [address] [place] [address] AST [Catalytic activity/Vol] 18 Int._Unit/L Normal 5-43 [facility] Comment on above: Performed By: #### 2 [id number] #### [facility] [address] [place] [address] Bilirubin [Mass/Vol] 0.6 mg/dL Normal 0.0-1.1 [facility] Comment on above: Performed By: #### 2 [id number] #### [facility] [address] [place] [address] Bilirubin.direct [Mass/Vol] 0.0 mg/dL Normal 0.0-0.4 [facility] Comment on above: Performed By: #### 2 [id number] #### [facility] [address] [place] [address] Bilirubin.indirect [Mass or moles/Vol] 0.6 mg/dL Normal 0.1-0.9 [facility] Comment on above: Performed By: #### 2 [id number] #### [facility] [address] [place] [address] Globulin (S) [Mass/Vol] 3.6 g/dL Normal 1.4-4.0 [facility] Comment on above: Performed By: #### 2 [id number] #### [facility] [address] [place] [address] Protein [Mass/Vol] 8.6 g/dL High 6.0-7.8 [facility] Comment on above: Performed By: #### 2 [id number] #### [facility] [address] [place] [address] Lactic Acidon 06-27-2024 Lactate (BldV) [Moles/Vol] 1.7 mmol/L 0.5 - 2.2 mmol/L [facility] Lactate [Moles/Vol] 1.7 mmol/L Normal 0.5-2.2 [facility] Comment on above: Performed By: #### L ACTIC #### [facility] [address] [place] [address] Vacuum Metalizer Operator: Jennifer Freire MD Lipaseon 06-27-2024 Lipase [Catalytic activity/Vol] 55 U/L 13 - 60 U/L [facility] Lipase [Catalytic activity/Vol] 55 U/L Normal 13-60 [facility] Comment on above: Performed By: #### C DP, CP, LIP #### [facility] [address] [place] [address] Vacuum Metalizer Operator: Jennifer Freire MD Lipase Levelon Lipase [Catalytic activity/Vol] 24 U/L Normal 13-58 [facility] Comment on above: Performed By: #### 2 [id number] #### [facility] [address] [place] [address] Microscopic Urinalysison Bacteria LM Ql (Urine sed) 2+ Abnormal None [facility] Character (U) MICROSCOPIC PERFORME D ON UNSPUN URINE Abnormal NOT REQ. [facility] Character (U) Quantity not sufficient. Abnormal NOT REQ. [facility] Epithelial cells LM.HPF (Urine sed) [#/Area] 2 TO 5 [facility] Interpretation and review of laboratory results Abnormal [facility] Mucus Ql (Urine sed) 2+ Abnormal None [facility] RBC LM.HPF (Urine sed) [#/Area] 0 TO 2 [facility] WBC LM.HPF (Urine sed) [#/Area] 0 TO 2 [facility] No Panel Informationon 06-27 [facility] UA w/Reflex Cultureon 2024 Bilirubin, SemiQt,Ur Negative Normal NEG [facility] Comment on above: Performed By: #### U AX, UMICAO #### [facility] [address] [place] [address] Vacuum Metalizer Operator: Jennifer Freire MD Blood, Urine Negative Normal NEG [facility] Comment on above: Performed By: #### U AX, UMICAO #### [facility] [address] [place], [place] 7763183 Vacuum Metalizer Operator: Jennifer Freire MD Clarity (U) Clear Normal CLEAR [facility] Comment on above: Performed By: #### U AX, UMICAO #### [facility] [address] [place], [place] [phone] Vacuum Metalizer Operator: Jennifer Freire MD Color (U) Yellow Normal YEL [facility] Comment on above: Performed By: #### U AX, UMICAO #### [address] [place], [place] [address] Vacuum Metalizer Operator: Jennifer Freire MD Glucose Ql (U) Negative Normal NEG [facility] Comment on above: Performed By: #### U AX, UMICAO #### [facility] [address] [place] [address] [place], [place] [phone] Vacuum Metalizer Operator: Jennifer Freire MD Ketones Ql (U) Negative Normal NEG [facility] Comment on above: Performed By: #### U AX, UMICAO #### [facility] [address] [place] [address] [place], [place] [phone] Vacuum Metalizer Operator: Jennifer Freire MD Leukocyte esterase Test strip Ql (U) TRACE Abnormal NEG [facility] Comment on above: Performed By: #### U AX, UMICAO #### [facility] [address] [place], [place] [address]334[address] Vacuum Metalizer Operator: Jennifer Freire MD Nitrite,Ur Negative Normal NEG [facility] Comment on above: Performed By: #### U AX, UMICAO #### [facility] [address] [place], [place] 100[address] Vacuum Metalizer Operator: Jennifer Freire MD PH,Ur 6.0 Normal 5.0-9.0 [facility] Comment on above: Performed By: #### U AX, UMICAO #### [facility] [address] [place], [place] [address]23[address] Vacuum Metalizer Operator: Jennifer Freire MD Protein Ql (U) Negative Normal NEG [facility] Comment on above: Performed By: #### U AX, UMICAO #### [facility] [address] [place], [place] [address] Vacuum Metalizer Operator: Jennifer Freire MD Spec. [place],Ur >1.030 High 1.010-1.020 [facility] Comment on above: Performed By: #### U AX, UMICAO #### [facility] [address] [place], [place] [address] Vacuum Metalizer Operator: Jennifer Freire MD Urobilinogen,Ur Normal Normal 0.0-1.0 [facility] Comment on above: Performed By: #### U AX, UMICAO #### [facility] [address] [place] [address] [place], [place] [phone] Vac[employer]izer Operator: Jennifer Freire MD Urinalysis with Reflex to Cu ltureon 06-27-2024 Bilirubin Ql (U) Negative NEGATIVE [facility] Clarity (U) Clear Clear [facility] Color (U) Yellow Yellow [facility] Glucose Test strip (U) [Mass/Vol] Negative NEGATIVE mg/dL [facility] Hemoglobin Auto test strip Ql (U) Negative NEGATIVE [facility] Interpretation and review of laboratory results Abnormal [facility] Ketones (U) [Mass/Vol] Negative NEGAT NAYE mg/dL [facility] Leukocyte esterase Test strip Ql (U) TRACE Abnormal NEGATIVE [facility] Nitrite Ql (U) Negative NEGATIVE [facility] pH (U) 6.0 [pH] 5.0 - 9.0 [facility] Protein (U) [Mass/Vol] Negative NEGAT NAYE mg/dL [facility] Specific gravity (U) [Rel density] High 1.010 - 1.020 [facility] Urobilinogen Qn (U) Normal 0.0 - 1. 0 EU/dL [facility] Urinalysis,Microon 5 Bacteria 2+ Abnormal NONE [facility] Comment on above: Performed By: #### U AX, UMICAO #### [facility] [address] [place], [place] [phone] Vacuum Metalizer Operator: Jennifer Freire MD Epithelial cells LM Ql (Urine sed) 2 TO 5 Normal 0-25 [facility] Comment on above: Performed By: #### U AX, UMICAO #### [facility] [address] [place] [address] Vacuum Metalizer Operator: Jennifer Freire MD Mucus Strands 2+ Abnormal [facility] Comment on above: Performed By: #### U AX, UMICAO #### [facility] [address] [place] [address] [place] [place], [place] 448[address] Vacuum Metalizer Operator: Jennifer Freire MD Other Observations MICROSCOPIC PERFORME D ON UNSPUN URINE Abnormal NREQ [facility] Comment on above: Result Comment: Red tity not sufficient. Performed By: #### U AX, UMICAO #### [facility] [address] [place] [address] [place] [place], [place] [phone] Vacuum Metalizer Operator: Jennifer Freire MD Urine RBC's 0 TO 2 Normal 0-2 [facility] Comment on above: Performed By: #### U AX, UMICAO #### [facility] [address] [place] [address] Vacuum Metalizer Operator: Jennifer Freire MD Urine WBC's 0 TO 2 Normal 0-5 [facility] Comment on above: Performed By: #### U AX, UMICAO #### [facility] [address] [place], [place] [phone] Vacuum Metalizer Operator: Jennifer Freire MD eGFRon 06-27-2024 eGFR 84 mL/min/1.73 m2 Normal >=59 [facility] Comment on above: Performed By: #### 1 [id number] #### [facility] [address] [address] Coding Summaryon 06-26-2024 Coding Summary HTMLBase 64 DbunpiwaJTv2fFn+PGhlYW Q+QN2TAKHyS02gbZBasK7e C4UQKZlCFukmARAPBSqSWs EpelWfFV6ffYEuAXBp IC8+UO5kVFOaQnmrqRRym8 C3zPI8C47oxh3xGAgckGY6 XKQaCvCcmzgor9patCo6MD cuNmluOyBt MSPpjV37PUB4gH58Bg02fU JlfNRjp1qwnXu2NaFxGEPm GHA3qWuwPCmjt1GqYBNaS3 4rtFKfn6G5 VJKujUdyxSNbSjRliCR8oM 8sICetywohs7nnkthlVre7 ed41kCTiw2O2gSH5G5Diva J0AMFreMUy EetspLGVdY0niqlck7jgkx cgLcEmGOHaEQi9YWi9FCZm wAuvJbRlDF68ALG4ZYWecg GhK6XcAVOj uPuvBpJ1w2P9Wi7ZM9NHSu ueF7YSLLMIONtcgGY+PC90 sd03C7JxWvpcIhw0UPJmXO W4rTQ9lC4h SIMtEZeyk7U1mEL7C0Qkpg Dzsa4ex3thDAEvLEitC64h sQOrp0O9WWUgpFD6YGElfM fnZqSiaX11 Oyc+IRGrxSyyk8BsFmvyx0 nry4tumUi6FixtIYChmvTc wEepSVP6u4MkOi9bWFXfsK U3lCN3aL6p GcYdZxC9HRkgA335NrQabM CnZtlmG12iH7KoxYO+PHRy Icl2SEOtpAgzAV7cB1XhXD RpbmctbGVm pIljQD0nWHLajiohRINmiW 9lLALeH3q1XuExFgV4WWmg X5FrAHVsltkfSk46wP4pMe UmJtX0RJwn F4MnneN2TMXbyQWhYUreYD L4L92iy2A8KTQePELkFJX2 nVG1zB0luHiayjigxPRplS sgdmVydGlj DKhcGAihC266DXVhfNbgFf NvZGluZyBEYXRlOiAgMDEv MTQvMjAyNTwvdGQ+PHRkIH G4tSjdGKAt lZSbAOjlBm3qoAevlAnvPW 9pOCDcotpoOPLugB2fCGKj jEWemMhfGW5xBLYlmwslf8 58EnIeTQO6 MGYpfTVdR7EluZ8yTrSrQF YtAPZdG0UamSDiITvzY646 LUwiCiU2FOOeryCuR2KsFY FsaWduOiB0 i4N7Qc1Ci3ZcqijjR4LlsR XlRwVfRuupDXv9C7XdPvnw dHI+JQ26JXWrBY46KOi7YH G1iArsSDfi EGTrP9RtkR0jDtNuERMnTW RkOyc+PHRhYmxlIHdpZHRo UPchEGEjVoLydEilUV3eQf 9yZGVyLWNv mDeqdGKjEoFdo4xyBGFiXU ozFT1ifRqjZ2WdaIE5YONx i3j5Ru18B91fD9TshRO+PG AbqUC3sXB6 cM4zXvDbNcP5PNieT325Ou VicSJlLpvud9fsm2ycoYv0 CvR9HTUicoBblGifEPX1c6 TwEc33Q45i IHdpZHRoPSIxNSUiIHZhbG isgq9jqK0dYo2+PGNvbCB3 vLB2oM7kEqKwAiY4RWgoQ2 49InRvcCIv Utglx4zdt9ctjEq1HkPtBL CbnsNscVyqCHA8o1WzEi86 M1AesZqxu7XfLmm1yd92tE Okq9X6bXG4 W3FkDUBzridagQUqjIdlIE 9mRZCdtphiXPOklR1hGCAw J4o9OiIdAfK7CEyqC0Jibk X9VOTbzZAw PFEvzBAQiN2jmmjee2frdt llMkYaKXBoRZe7DDl9KJDj vOhwQoRpYJO4XxW0DZP1nH KrxW0dzYtm cfsqtH9zFys+XIM4kRBqbK ATLD8pXtedfCG+PHRkIHN0 yZocRZaaEKFhvN6cDNUsW7 i8AnOzQjJ0 FAjrD9NtlyU1BIPcuXVqSW ZvkTUEyH5clpkbl0xteykz OcJdYZHjDSl2VKn6LFVyxR duOiBsZWZ0 ImJ8NXC9xSUrnS4izDwdzp rviK9zFhz+QmlydGggRGF0 BDc6S8GnVww1YGKjwIsvGI 0ncGFkZGlu Et4fvTcemPhiWK3iJVOqaa jpq711IjHhi1wzXSXevDKi GFjwOVG8J41cg7J6ZIZeCN OyKIH9fCC9 aZ2poZodtntrfMIhzTpmdx KnqJplUGnmCNobR941JOYi oPjjKhAmSKt9Q3EuMef5LP PbeAtmQU9f aCLfDBcjLs1qzDwbbGpvOO 6mBDTlswqow459JgIvl7ua IORwaWJgKDzkPHW5N58tw8 Z8OKVzAUVj PRD3xEV8cT7dsNmyvnrthO VmdDsgdmVydGljYWwtYWxp B156ARPhvAccMaKglFr2L9 FuNub3FEPa vIjgZK6fvUUlTEuyJs2fwW cupGaxIO3nENBkixrfw484 VhGfz3tbDVCpnTFvECtnUY Y6W40sq5F1 CLHjLPHqXMR6mKW2uV9ecA lnbjogbGVmdDsgdmVydGlj HUwkYCvfS024CEXkgFhgJi BhdGllbnQg CRfoDCr9K6LoVarioIJ+PC 29EXZcTA27cLRdkGThv5yx cHb4GqMzBSNxMTG7xGirFU zan2MrXOAz Y53lxUSae7N8FBArgIlnwN JkFrMllHY8mB2lMJllwicu c4mxnfjaRrygz9esra96xL 78V26bUOpv ZHRoPSIzMCUiIHZhbGlnbj 2edE5iEv1+MNQpuAU8vLB1 mQ5bIEJsKmJ3BNbrT225Hu RvcCIvPjxj m3ceb1bnkGp1BoW5RBSaoa XbrLkhXTG6k6KbMd04O67s IHdpZHRoPSIyMCUiIHZhbG dimt4ymZ5q Ii8+TFDeqZG6lEK8zD0xTe ZdDjR9UGusG866TiPqaBSc FjkmA83sI2MqpAS+PHRyPj t4UEKksYuy OU4krGAeYTrfJn6sAJH3Og PgUvLnCDgvS0MoVHHmtjts radykID8UJYiISXdeC12No 9udDogMTBw aKHEtA1lxklal6uxtsimQg FbUBDiLVj5LTr1NIGbwDcj CyWcLSV2DdR4FQA4tKScnQ 1hbGlnbjog oO6eA0GkBWGkhbkjYd41cM 0aHnNnRhU0JLfxGdr+SE9X QVJELCBTVEFDSUUgTEVFPC 75TX97gNFp x6M2oZN6A5JvRNWvtwpqyz dabXZ9JBQuCZTtoV52iJEs ZMcjPl5al1G7z359AMOmIO RqrH92Qg4y aHlyKKUqyPJGyA9dwaprr3 kfpywxSxPpPNHbFBt6SJk9 HITsqRqlDzFyYIU6AsP2NP Y9jGJaoR8n lOwoufcnxE7yOxq+MDcvMz QcENr0VkvkuBE+PHRkIHN0 dXylBKvzOZZxbD6lBDMdI1 n9QvGtZqP6 HPzrU6WiQSFulizzUp56fB 1fTcOeZuW0BWyoX7GzjiB1 SIMnkGVdXWycYHL9W55uv4 C6BJVqJSTi WQW5wNP8tV7odKromkhxiY VmdDsgdmVydGljYWwtYWxp K318CDLbnSlwClL5SMejII OcCR87IA90 oPGuw2Y5kSW1E6ZlDNHfha dvzbjzkWU2SYPyNAFooH36 rOBnHUefSd2fy7D2q285SL EeIRHlbF15 Ii4soGwbMGOjjKYPkS6mcr dnk6uyiiakSwJvLPHfYQs7 JUp7GXHrhYmtKyKgJDU9Zb Y1XXN4iVJw eC7gqVvrrjydwE3mTbm+Rk CEMDyGTX41HP39aSAvw3H8 nOU5M7MvSLAxbwfscxrftB I3BXEqRYYc uU86rMHnSPsoTo9ij9B9m4 48OXDcATKtkW64Hu4daPej FBYbmXAIyD7xugwcs5gfyu ogIzAwMDAw EUr1APb7UKTvxPvxMzWoDY X4WyV8WBC3cJSdvO9zpJfx fjssxJ0uSjb+SG1gbktvml B9GZ51NO39 O6QvSjtplJChaRU+PHRhYm xlIHdpZHRoPScxMDAlJyBz cNneZF8wQq4uJDLlVLYmgX xhcHNlOiBj g2dvPGRrHKnwTR1bkMukZ3 YmmZY5JMVyy1f8Af83I98b S6BnjMF+CZZhyVZ5cRP5vP 9qLnIhYeK7 UGoiA216FeTvwIVbSzsks8 rgp4lqkEw9GpWuGHBlarLp tIemHIP0l9PaQt12K41cUN dpZHRoPSIy INBbSVNnoCcqoa1agC9iXv 8+VDJodGG4fQX5lH8tVsEg OrX7TLiuX516SeWibLHfVb uxL42nO2Bg dXA+IBDuSwa2LVMrgHixHF 8qgFMnXSwuEr7fFOK8UtGu DsUnMObvV6SrUTHllcztam hpyTK8DMXx SPSemI93Rc9cqUorLy4vDP GsWIN4FMLcuLZlS7AirW4v RxUrPIBqCBDgM2EglRYhYG tiI226XSpu WuI0VVKvqvTkA4FeCYJdyD ltEzM2i6E3Pd1MwBvnqNOk FU8tMxSxRIn7K1GiPae8WH PzwPxeDG3c xIUwDGmxHk5iwEbsmBbtNC 6wAWQsutrnq382HjUsq5bu LFXvtDQbDQjdXCQ9J19bo5 B5YDDiHUGr TDH3wVN0gN8ngKnvoezuoH VmdDsgdmVydGljYWwtYWxp B153FIMsbRtrJzWTQdd8Q8 UwLtt8JWZq nLjsVO1nwSBwLJanUk5ztH pexUidIE4tDZWfspilc915 UxJwi8okGTDxvVNvTMydGF H7B98px1Y2 YVXeOBFlQNC4lKR2eG7tfE lnbjogbGVmdDsgdmVydGlj WOrhUPdtH414CXWgxVfeId 3GKaa3I4Oi Ngx1HBUkhTmwGU8jwMWyLU yiAz1kxKjnxHtrVK1uEQNy lhwkn766JdHlm4hrGEVsbE QgVGltZXM7 U12uh5D2QWHfGDDlZDI5cO D9kZ0kaPbosgcuhPVedWjb mzBpgXwqJRfwJHviJ099CW RvcDsnPlBh eWVyOjwvdGQ+XN11mk22W4 CqYymrSwk8GNKwFHX8xXU7 oN8dTSOdUQvkp7I3hRV1X8 SdhrSjqs6w b2x (more content not included)... Normal [facility] CRPon 06-25-2024 CRP [Mass/Vol] 0.5 mg/dL Normal <=1.9 [facility] Comment on above: Performed By: #### [id number] #### [facility] [address] [place] [address] CT Abdomen/Pelvis w/o Contra ston 06-25-2024 CT [...] Oral contrast amount in ml's: 0 Normal [facility] ED Clinical Summaryon 2024 ED Clinical Summary ED Clinical Summary [place] [id number] ED Clinical Summary Person Information [facility] Age[facility] 39 Years : 1985 Sex: Female Language: Lebanese PCP: NONE, XXXX Marital Status: MRN: [id number] [...] 02:50:14 ADDRESS: [address] [place] [id number] PHYS DOC NOTES: MEDICAL INFORMATION: Prescriptions Given: New Medications [id number], [address], [place] [id number], [phone] acetaminophen-oxycodon e (Percocet 5 mg-325 mg oral [...] Follow up: With: Address: When: Jacy CHIRINOS [facility] [place] [address] Business (1) In 3 days 06/28/2024 DIAGNOSIS: Abdominal pain, acute Normal [facility] ED Note-Physicianon 06-25-19 ED Note-Physician ED Note-Physician [...] and Complexity of Problems Differential Diagnosis: [] [facility] Data External documents reviewed: N/A My [...] primary care physician as well as her [employer] for the next available follow-up as an outpatient. Discussed return precautions. Patient was discharged in stable condition. Shared decision making: As above Code status: N/A Assessment/Plan Abdominal pain, acute (R10.9: Unspecified abdominal pain) Ordered: acetaminophen-oxycodon e, 1 tab(s), Oral, q8hr for 3 day(s), 9 tab(s), Refill(s) 0, [id number], 165, cm, 06/24/24 19:33:00 [...] In 3 days 06/28/2024 EST [address] [place] [address]- Business (1) Additional Instructions: Patient Education Abdominal Pain, Adult Problem List/Past Medical History Ongoing No chronic problems Historical Endometriosis Ovarian cyst Procedure/Surgical History Hysterectomy. Medications Inpatient HYDROmorphone 1 mg/mL injec (more content not included)... Normal [facility] Comment on above: Result Comment: Elec tronically Signed By: Ritesh Heath DO\.br\Date and Time Signed: 06/25/24 02:44 EST ED Patient Summaryon 025 ED Patient Summary ED Patient Summary [address] [address] Patient Discharge Instructions Person Information Name: ANTONIA NOYOLA Age: 39 Years Arrival Date: 06/24/2024 19:23:55 Discharge Diagnosis: Abdominal pain, acute Primary Care Physician: NONE, XXXX Provider Information Primary Provider: Ritesh Heath DO [employer] Assistant:Shazia The exam and treatment you received in the Emergency Department were for an urgent problem and are not intended as complete care. It is important that you follow up with a doctor, nurse practitioner, or physician???s corporate legal assistant for ongoing care. If your [...] With: Address: When: Jacy [address] [place], [place] [id number] [facility] (1) In 3 days 06/28/2024 In the event that this physician does not participate in your insurance network, please consult with your insurance company to find a nearby participating provider. Patient Education Materials: Abdominal Pain, Adult A MESSAGE TO ALL PATIENTS REGARDING OPIOIDS PRESCRIPTION OPIOIDS: WHAT YOU NEED TO KNOW Prescription opioids can be used to help relieve vgfibhbh-xq-fzzwbk pain and are often prescribed following a [...] be struggling with addiction, tell your health childcare provider and ask for guidance or call S (more content not included)... Normal [facility] Sed Rate Automatedon 025 ESR (Bld) [Velocity] 35 mm/h High 0-34 [facility] Comment on above: Performed By: #### 1 [id number] #### [facility] [address] [place] [address] BMPon 06-24-2024 Anion gap [Moles/Vol] 13 mmol/L Normal 6-16 [facility] Comment on above: Performed By: #### 2 [id number] #### [facility] [address] [place] [address] Calcium [Mass/Vol] 9.9 mg/dL Normal 8.9-11.1 [facility] Comment on above: Performed By: #### 2 [id number] #### [facility] [address] [place] [address] Chloride [Moles/Vol] 107 mmol/L Normal 101-111 [facility] Comment on above: Performed By: #### 2 [id number] #### [facility] [address] [place] [address] CO2 [Moles/Vol] 23 mmol/L Normal 21-31 [facility] Comment on above: Performed By: #### 2 [id number] #### [facility] [address] [place] [address] Creatinine [Mass/Vol] 0.7 mg/dL Normal 0.5-1.3 [facility] Comment on above: Performed By: #### 2 [id number] #### [facility] [address] [place] [address] Glucose [Mass/Vol] 116 mg/dL Normal 55-199 [facility] Comment on above: Performed By: #### 2 [id number] #### [facility] [address] [place] [address] Potassium [Moles/Vol] 3.9 mmol/L Normal 3.5-5.3 [facility] Comment on above: Performed By: #### 2 [id number] #### [facility] [address] [place] [address] Sodium [Moles/Vol] 139 mmol/L Normal 135-145 [facility] Comment on above: Performed By: #### 2 [id number] #### [facility] [address] [place] [address] Urea nitrogen [Mass/Vol] 6 mg/dL Normal 5-21 [facility] Comment on above: Performed By: #### 2 [id number] #### [facility] [address] [place] [address] Urea nitrogen/Creatinine [Mass ratio] 9 No Units Low 10-20 [facility] Comment on above: Performed By: #### 2 [id number] #### [facility] [address] [place] [address] CBC w/ Auto Diffon 5 Basophils/100 WBC (Bld) 1.2 % Normal 0.0-2.0 [facility] Comment on above: Performed By: #### 2 [id number] #### [facility] [address] [place] [address] Basophils/Leukocytes Auto (Bld) [Pure # fraction] 0.0 E9/L Normal 0.0-0.2 [facility] Comment on above: Performed By: #### 2 [id number] #### [facility] [address] [place] [address] Eosinophils (Bld) [#/Vol] 0.0 E9/L Normal 0.0-0.5 [facility] Comment on above: Performed By: #### 2 [id number] #### [facility] [address] [place] [address] Eosinophils/100 WBC (Bld) 0.4 % Normal 0.0-8.0 [facility] Comment on above: Performed By: #### 2 [id number] #### [facility] [address] [place] [address] Erythrocyte distribution width (RBC) [Ratio] 19.4 % High 10.9-14.2 [facility] Comment on above: Performed By: #### 2 [id number] #### [facility] [address] [place] [address] Hematocrit (Bld) [Volume fraction] 37.3 % Normal 34.0-46.0 [facility] Comment on above: Performed By: #### 2 [id number] #### [facility] [address] [place] [address] Hemoglobin (Bld) [Mass/Vol] 11.8 g/dL Low 12.0-16.0 [facility] Comment on above: Performed By: #### 2 [id number] #### [facility] [address] [place] [address] Hypochromia Auto Ql (Bld) PRESENT Invalid Interpretation Code [facility] Comment on above: Performed By: #### 2 [id number] #### [facility] [address] [place] [address] Lymphocytes (Bld) [#/Vol] 1.3 E9/L Normal 1.0-4.0 [facility] Comment on above: Performed By: #### 2 [id number] #### [facility] [address] [place] [address] Lymphocytes/100 WBC (Bld) 30.4 % Normal 14.0-50.0 [facility] Comment on above: Performed By: #### 2 [id number] #### [facility] [address] [place] [address] MCH (RBC) [Entitic mass] 22.8 pg Low 27.0-34.0 [facility] Comment on above: Performed By: #### 2 [id number] #### [facility] [address] [place] [address] MCHC (RBC) [Mass/Vol] 31.6 g/dL Normal 31.4-36.0 [facility] Comment on above: Performed By: #### 2 [id number] #### [facility] [address] [place] [address] MCV (RBC) [Entitic vol] 72.2 fL Low 80.0-100.0 [facility] Comment on above: Performed By: #### 2 [id number] #### [facility] [address] [place] [address] Microcytes Ql (Bld) PRESENT Invalid Interpretation Code [facility] Comment on above: Performed By: #### 2 [id number] #### [facility] [address] [place] [address] Monocytes (Bld) [#/Vol] 0.2 E9/L Normal 0.2-1.0 [facility] Comment on above: Performed By: #### 2 [id number] #### [facility] [address] [place] [address] Neutrophils (Bld) [#/Vol] 2.6 E9/L Normal 2.0-7.5 [facility] Comment on above: Performed By: #### 2 [id number] #### [facility] [address] [place] [address] Neutrophils/100 WBC (Bld) 62.2 % Normal 36.0-75.0 [facility] Comment on above: Performed By: #### 2 [id number] #### [facility] [address] [place] [address] Platelet mean volume (Bld) [Entitic vol] 7.6 fL Normal 6.4-10.8 [facility] Comment on above: Performed By: #### 2 [id number] #### [facility] [address] [place] [address] Platelets (Bld) [#/Vol] 563.0 E9/L High 150.0-500.0 [facility] Comment on above: Performed By: #### 2 [id number] #### [facility] [address] [place] [address] RBC (Bld) [#/Vol] 5.2 E12/L Normal 4.3-5.9 [facility] Comment on above: Performed By: #### 2 [id number] #### [facility] [address] [place] [address] RBC size Nom (Bld) SEE MORPHOLOGY Invalid Interpretation Code [facility] Comment on above: Performed By: #### 2 [id number] #### [facility] [address] [place] [address] WBC corrected for nucl RBC Auto (Bld) [#/Vol] 4.2 E9/L Normal 4.0-11.0 [facility] Comment on above: Performed By: #### 2 [id number] #### [facility] [address] [place] [address] CHEMISTRYOrdered By: SYSTEM SYSTEM on 06-24-2024 Albumin [...] 35 mm/h High 0 - 34 mm/hr [facility] HemeAutoSS Hep Func Panelon 06-24-2024 Albumin [Mass/Vol] 4.6 g/dL Normal 3.3-5.0 [facility] Comment on above: Performed By: #### 2 [id number] #### [facility] [address] [place] [address] Albumin/Globulin (S) [Mass conc ratio] 1.1 Normal 1.1-2.2 [facility] Comment on above: Performed By: #### 2 [id number] #### [facility] [address] [place] [address] ALP [Catalytic activity/Vol] 79 Int._Unit/L Normal 21-98 [facility] Comment on above: Performed By: #### 2 [id number] #### [facility] [address] [place] [address] ALT No additional P-5'-P [Catalytic activity/Vol] 17 Int._Unit/L Normal 6-46 [facility] Comment on above: Performed By: #### 2 [id number] #### [facility] [address] [place] [address] AST [Catalytic activity/Vol] 21 Int._Unit/L Normal 5-43 [facility] Comment on above: Performed By: #### 2 [id number] #### [facility] [address] [place] [address] Bilirubin [Mass/Vol] 0.3 mg/dL Normal 0.0-1.1 [facility] Comment on above: Performed By: #### 2 [id number] #### [facility] [address] [place] [address] Bilirubin.direct [Mass/Vol] 0.0 mg/dL Normal 0.0-0.4 [facility] Comment on above: Performed By: #### 2 [id number] #### [facility] [address] [place] [address] Bilirubin.indirect [Mass or moles/Vol] 0.3 mg/dL Normal 0.1-0.9 [facility] Comment on above: Performed By: #### 2 [id number] #### [facility] [address] [place] [address] Globulin (S) [Mass/Vol] 4.0 g/dL Normal 1.4-4.0 [facility] Comment on above: Performed By: #### 2 [id number] #### [facility] [address] [place] [address] Protein [Mass/Vol] 8.6 g/dL High 6.0-7.8 [facility] Comment on above: Performed By: #### 2 [id number] #### [facility] [address] [place] [address] Lipase Levelon 06-24-2024 Lipase [Catalytic activity/Vol] 29 U/L Normal 13-58 [facility] Comment on above: Performed By: #### 2 [id number] #### [facility] [address] [place] [address] SEROLOGYOrdered By: Levi rajan on 06-24-2024 HCG.beta subunit (U) [Moles/Vol] Negative Normal [facility] Man Sero U BetaHcg Qualon 06-24-2024 HCG.beta subunit (U) [Moles/Vol] Negative Normal [facility] Comment on above: Performed By: #### 2 [id number] #### [facility] [address] [place] [address] UA with Cult Rflxon 06-24-19 25 Bilirubin Ql (U) Negative Normal Negative [facility] Comment on above: Performed By: #### 4 [id number] #### [facility] [address] [place] [address] Clarity (U) Clear Normal Clear [facility] Comment on above: Performed By: #### 4 [id number] #### [facility] [address] [place] [address] Color (U) Colorless Abnormal Yellow [facility] Comment on above: Result Comment: Micr oscopic readings are only performed on those samples that meet specific criteria set forth by [facility]. Performed By: #### 4 [id number] #### [facility] [address] [place] [address] Glucose Ql (U) Negative Normal Negative [facility] Comment on above: Performed By: #### 4 [id number] #### [facility] [address] [place] [address] Hemoglobin Auto test strip (U) [Mass/Vol] Negative Normal Negative [facility] Comment on above: Performed By: #### 4 [id number] #### [facility] [address] [place] [address] Ketones Auto test strip Ql (U) Negative Normal Negative [facility] Comment on above: Performed By: #### 4 [id number] #### [facility] [address] [place] [address] Leukocyte esterase Auto test strip Ql (U) Negative Normal Negative [facility] Comment on above: Performed By: #### 4 [id number] #### [facility] [address] [place] [address] Nitrite Auto test strip Ql (U) Negative Normal Negative [facility] Comment on above: Performed By: #### 4 [id number] #### [facility] [address] [place] [address] pH (U) 7.0 [pH] Invalid Interpretation Code 5.0-9.0 [facility] Comment on above: Performed By: #### 4 [id number] #### [facility] [address] [place], [place] [address] Protein Ql (U) Negative Normal Negative [facility] Comment on above: Performed By: #### 4 [id number] #### [facility] [address] [place] [id number] Specific gravity (U) [Rel density] 1.003 Invalid Interpretation Code 1.005-1.030 [facility] Comment on above: Performed By: #### 4 [id number] #### [facility] [address] [place] [address] Urobilinogen (U) [Mass/Vol] Negative Normal Negative [facility] Comment on above: Performed By: #### 4 [id number] #### [facility] [address] [place] [address] Type of Urine collection method Clean Catch Normal [facility] Comment on above: Performed By: #### 4 [id number] #### [facility] [address] [place] [address] URINALYSISOrdered By: SYSTEM SYSTEM on 06-24-2024 Bilirubin Ql (U) Negative Normal Negativemg/ dL [facility] UA Auto SS Clarity (U) Clear (06/24/24 11:36 PM) Normal Clear [facility] UA Auto SS Color (U) Colorless 1 *ABN* (06/24/24 11:36 PM) Invalid Interpretation Code Yellow [facility] UA Auto SS Comment on above: Interpretive Data: M icroscopic readings are only performed on those samples that meet specific criteria set forth by [facility]. Glucose Ql (U) Negative Normal Negativemg/ [...] Desc Clean Catch (06/24/24 11:36 PM) Normal [facility] UA Auto SS Work Phone: eGFRon 06-24-2024 eGFR 114 mL/min/1.73 m2 Normal >=59 [facility] Comment on above: Performed By: #### 1 [id number] #### [facility] [address] [place] [address] Coding Summaryon 06-23-2024 Coding Summary HTMLBase 64 CzffnkuhDXg4kOb+PGhlYW Q+PG8OMJAmF63uxYXmsP9g J9SKJBgDMdevVRKDPAxJDk DletZcRY1mnQNqYPQe IC8+NN1eWGEcMeqrvBQne7 H0vOG7N11zvr8mKPtmdSD3 YOIlKrUmajxmt6ohyGe3FH cuNmluOyBt NTImkC19JNA2mT31Ug50aN XkfWYnm0mmaXa4FdNgTXCm COP0oLfiPShhn7JqOFQwQ3 5kiLBmz5K0 KXVafLodyUReYeFbpDK0iF 1nFPzzjrrut1uuomwcEmq4 up42vEXwm3X2zTU8I4Mqof R4CGYjePCo UjjxlHIArB4gvwemr8wtws zzAoWrEWSxGTx6NIp5GWAh xLozVzWaZM59YFK5QWKzli PoJ1AoWBSq vUeiBgZ9c9N1Qd6RF2PYBo utG9ZOCORWAYfmnNL+PC90 qc94M3FxQetnShw7QWRfPS S4lSC8wK5d RMWwSNzga8E3xBZ0X0Tzty Ajcv8ci9jzXNCcNTbfA47t wRGji0K1SCPcmCZ8BBTypG ylPaJhlA80 Oyc+LXXjhKgvl5KsZcplm4 bel9eodTb5GsabAUNvecCa bQolDNF8w9GiLa4lUYUfdP Z9sEG0bP3g XuDiIsV1GHbkM846WtVijN QqYplpX87eZ6YfaKL+PHRy Uhx6DIKubOsrLK4wU3JfMN RpbmctbGVm iPmnSD6yVDDgrjxwYYVamJ 2lHGTjD0b8CmZvYuA3LPph J1NiXFUrlidjQx08xL6kKk JwLaI1LDop W4NyfsX6UJXvxGEdLKskDL C5D27xf3X0JYAnEEVbWPU0 tAM1yQ8rvOuwgyxszQSfdO sgdmVydGlj YEcpMIymP908UCKmbPjnAv NvZGluZyBEYXRlOiAgMDEv MTEvMjAyNTwvdGQ+PHRkIH W6gEarXXYz tMJcOZgcHr6lnUflpNwsTO 3kIOHtxsiiILDlcL8sVNKt sWOjfFcfWT5xXKYcpqkpo9 37CjPvIDY4 TRRbkSBqR5AvfZ2yAoSvFD PoYVAbQ7XrlFLqXVjaD074 WLvqUqD7CVBmmkBuC9JrKE FsaWduOiB0 t4W7Cs4Li5TdkkxoN2WqiS YlAnMwCravFYa0Z9MeHltf dHI+DW58KKKmIX55FKb3XB R4jYnfQFbv FEAtM5UzwH1pFiIrHZNaUL RkOyc+PHRhYmxlIHdpZHRo RKqqKDRyRtKmyOwiEJ1zMj 9yZGVyLWNv kQsijMDkNkVda5gxXJLiPK cqZE5qqJstS3FxoGV0FFSt c7a2Ct75Q09rS4QgoXN+PG FlqAS2bWZ2 uC4wDiNvShQ3NPzcP703Jb JvhRHuJvbxc7apt8rweZy7 EvJ9AHUjtiTpeHchIMK2c0 JfEb27S70z IHdpZHRoPSIxNSUiIHZhbG djgv6smK3oEc0+PGNvbCB3 gTJ0sO1hLaNwWdB7VFuwD9 49InRvcCIv Xxdtx0sdi0xcpYz5ZyGsNT MexxGzaQryOJX6p4GiDb44 O0SgpOiyu7NwQjj0kc74xS Isx2C1uLA3 N4BnNOLwbqufpDZzjMtlGU 2rNEJlnhvbOEPvcI1hZYCc Z2n0SeIsLjZ6NLjlA4Hzme I8KSPzhRUb QJNiuJAKtG9idpblm7wzdl mwCtMtTUPjFNw5NSb7UVOx nBniBrLpVKT7FqY4VXH7vS XgmC1kyJda rntmgT2xBfo+VNU1iERomK ANJW7dLmbgoTU+PHRkIHN0 zSowVJbjULYrdM6cVVRbR8 z3VuRhOqP5 WFrzB9SkrvJ5DYDkbXVeMZ ToaPHDuI1pkknup6prrtwv UkKwRMHiSBx6IMc3BGDpkZ duOiBsZWZ0 DyE0RXX9yAXchD8qaAvgfw yjqT2gCgo+QmlydGggRGF0 AVr5G6MuQqy6LSFkxKjgYO 0ncGFkZGlu Uh1ocSwpaNdfQB9cZYEhxn iey096TjBlp1pyQZKajIEl QBhqMIE1Z70vf6K6CPExMK IbRMO2aAF6 sG6ivOqmpqgmkKBdiGpnrt HofZsqDJibKFbhM253BHXv fPgwFnKpTGr3R2SxVfl0FB UftYfcQH8j mAQuMArrBp4gyAcuhAxwWO 2gJKFcarwmb905PuFso2xr LVNjkHQoFYtqGGI4M82cy2 R8MSKhRELw RXF4yJE1dO4feWgeopwjkD VmdDsgdmVydGljYWwtYWxp I976CQLjpUvkDzWjsYh7A3 IzDdv6ISTc iUhoZW9bhJTrTQaaPf1dyP lyiPhqTN3hDPIpxbhks579 HgHws1yeAWIsbGEhJEqgUR D6A05ry2E8 FKJlVXZqBSH2lOH4oV4zlJ lnbjogbGVmdDsgdmVydGlj VQpqRZywB135JUGrnLzkLn BhdGllbnQg ZPwqMGm3N2WjWnvpsFU+PC 01OLPkCX00rFYlxUIuh4ru aWq0PaYxXHBoFBH3ePcwOU aar4FlSZQv Q12lkMOav5Q6NLOahYuwtK GeJqVraXB7mS1rYBkjvmqs g1cnescpZcjzk5dutr38qV 78E22jOQlx ZHRoPSIzMCUiIHZhbGlnbj 2ufT0sBo7+XAPveVV5wLD1 pI5eLATpXzX1HOqjS980Hr RvcCIvPjxj p5bnz9imcLm0YzV8ILLdfo BhhCkuNRL3p4XvVz64D29v IHdpZHRoPSIyMCUiIHZhbG zejb3abQ4x Ii8+IXVlmJD7tTQ2xN2tLr GeBgM7QJtzT094ImTvnMHb ZeblJ05eE6EhcWF+PHRyPj g7IWXljXcy LE0ekLAsPTklCw5oOGV9Wb WkMdZeBHszW7TzMIMqamar ltqglNL4OWJuUOZpuD54Xf 9udDogMTBw gALSyC8ihlhlw6swhwalWv GdMEFnFKv2QXf8JXIxrLxh YgVzVMY4UvZ6DWB0zTSawK 1hbGlnbjog iW2dC5PiANTgbuzjFw89jX 5lGlCpSiS3AHvmHqz+SE9X QVJELCBTVEFDSUUgTEVFPC 17PU49fKMb x1G8gIL5T7JfWBJzrmcaac upbPY5TRPwNUEiwO55tBFs TEuiGg0qu4Z0c712DQNiKA LmuC50Qm0m iAsyTGOhkGYXwV1slcoih2 bsyuktIsXiIJVzBRa7ASs7 CVExlObhQiQvLLX7TlS1VG Q6fQJnpN1m dSdmkoakgK5aQtq+MDcvMz HrOTx7SvuqeMZ+PHRkIHN0 xKydJMyqECOwzP7dFUBgQ3 u3SbJiWbR2 CBneY6RhAVNegvtxBe20fS 6vXfZvRjV8JHddD4GbolR5 MLNycNLsSKhrQKL2H28wz0 I7SKVfLOTm UGS9eAX1sM4zsMutdkkkjF VmdDsgdmVydGljYWwtYWxp L349DYPlyGxbUyU6YVjyGO OmBY89NL76 bQUjk6T9rDH0Y9ApHTFkpt hdgapmbKA8WIAfSRVvjA31 hAOuVNypVl5ak2Z7r963ZA SkTDPywK67 Nx1zeUatFOKwtMBKsW0jqo xlj4wxlnyhIwZqVTKwMEe7 AGa9YPGmvSttVjXbZZQ2Rt K4IAD4pDZl pW5eoBbgwgqonP4jGty+Rk OMSMoVTD31MM40oACos4K7 yLU4L8EoXMAsrwsgmsbocF C5AATgTODi vK71yQPiQMlsRh6cu7E6x4 30XQSePEAcfQ69Jv2grKtd TAWclXLOuD9abnacf6tyvo ogIzAwMDAw ZVg6WBc7CKXxpQyoRrJzDU O8JeY9EEG3hLHccJ6msKsn lxengC6yLjg+SG9jiwocqu I8ZG42TO96 D8RfQocexPPtpSK+PHRhYm xlIHdpZHRoPScxMDAlJyBz qThbEV5tCt1eUKNcGMFbqJ xhcHNlOiBj e6tbMPMfLXiyTP6bcIvmB5 YarXT3JUQuv6q4Xi66R62j O9VdbPF+YDTxxNN8cWS2vA 5wCaOdVmN5 UTydC305RsBleQLwArexf3 lfn5xkeZb7PdRpKJAiwzZk qNfvUUI7c4YvLu33H95fJB dpZHRoPSIy ZZKmQTFlbIfrlx8bhP5yRh 8+SKKnkPI2jYK1fX6dOsWa GoN3SAodQ156KfZbiRGuGo pdH08cA7Jy dXA+SKCkHkx1UVUbgWnfLD 5shEWvKOklWs2uMQN6LgLp PkMvFItiM9WmGBLojhxvno hwcWG4KETj BUEbfG99Kv4fqXefAb4zKW DzBCN2XFElpMMpE4IcyV4i LtVgLXOsBSFeB8HlzDJiXK ydL286EPer SdY7WYUdcsSiB3ObLFDcyB kvLiN6v3V3Yp8KqCovfZTg LT5qOmQbOXi2P3SnCic8OF AqrObdUP3j gOMiVPcqZj3mcVtvrZpvKU 5yHADurhxmp822InFup2al JUUhyEJrIStuQOL1N51vb1 G4OFJlMZVx DOF5fTU4dL2isGamqtlqlF VmdDsgdmVydGljYWwtYWxp N977DMAayXqvBtSKGsu4A1 ZrZuh8HJYa bXafFD2xiBQoNAunWy5owL nbxBicQY2pSNJwznkky509 EoYyx8mnYVYoaACvQZpoHN I2E01cl7X0 QUWvOYSuMOL3eDT0cE7zuZ lnbjogbGVmdDsgdmVydGlj UMnjRTglO246JCUmeWteIn 4HWbe1Z7Cm Vyj1ZMIlfBybGC1olWNuBC qcKg9gtLwipUkbBX5nQRVe micdv905JuZxq3lkGBCiuE QgVGltZXM7 S25sk6U1EZRqXSNoSZG1vR Z0wY0jkMhwzhxeiHDeoWdi agOtkXhsJNqyQYyfB409DC RvcDsnPlBh eWVyOjwvdGQ+HI10dl07X8 TyNcqxSph4BRXgLHO7tKT4 bL7fMRBfTTupq3H4lNQ7D8 JalkJrty9i b2x (more content not included)... [facility] Coding Summary HTMLBase 64 RgjxjhcrMDk0dEu+PGhlYW Q+JD7IKOPjU45rlCLawD2d N2BDYInAQorbYKTFDDnFRu JynwOrRC8fuSIdTOQz IC8+AS0eCUZlYmiipBHpx3 W4yBZ0Y25mim4rGRfcwOY3 SERmBcEqxfspi4ukuBb5YF cuNmluOyBt SBZoaI94PLV8vF92Tg44mD RgbMIxb5rdwOk4OtPrDCVg IMS0yQphGTrby6XiGKZoL1 5fcEQqx7K2 TMViaWylzMJwVpNxzSI0kC 1gDPhfezlwx0dpjffqRea0 le23vQJrr4N5sUU2X5Uawz A6GTWglOOf GiwxnBGGdZ6qjzwjj3ywbj vnCpUmBDWeLCn5YTl2BOCo zXzgUfIuZV05MAP4PXAhcl JwA3VkVOUs cIiuIoJ5z0W5Xg0LN7ZXTs veW7VUZNBZZZsddXL+PC90 sc10A4VtXqijElq7JVGfLF O3xWB8pG7r LUMgGPzbz1P9yLS0H6Xbmz Xeoo5fz7dpISYrVKwjU89e mWIeg5V4HKOzrZR9ARXuoJ xcYjXutN53 Oyc+IZKnaMfnq3MzSkbry3 obw9izuNc3MjsvHZTxoqSb wVuxZSJ1r6LwVg2rKGSzaJ B0dDX7tC6l VcItIzN6PJutY414MxWdpO HrTpjlE95bY3UxkGV+PHRy Cdk3UOIpaYkuDA6fU7AhHI RpbmctbGVm tYenUZ6oSGVmbmscOLBkrU 1hTSIkL8f6VrMwUuP1PPxt B1SiHOYolgryFr21hO6pRm WxDuL3ILqj C9AwbzO3GRZclVHdCYxjLH J8Z52qm8G0LMXnEEUoLZL2 yAE1wE9flIntkmmmlYMrrQ sgdmVydGlj CVjkOTrhZ752JYZbdAuwHp NvZGluZyBEYXRlOiAgMDEv MTEvMjAyNTwvdGQ+PHRkIH K3eTzkKHQk lMGrNFehFs7mePekhXnpZU 3sCFItcrffCPLoyD3tSMLh nTOufMohTW2hSWClqgnbi3 00WdSkZTQ9 DXNyzRFtG7CwkO5iMuDyCD ZmSTMiY3TjgKKnZGkqX232 KBiaNkZ8TPAmqzVmL0KrNG FsaWduOiB0 x8C2Bd4Ua8WiobhpS1LniH NbTcYmApcwQAy5I8PdOnxl dHI+IN52XZJhHC12QCv4AZ I8fUfuHYsw BUHyJ3HjaI8eXeNjVJOwWW RkOyc+PHRhYmxlIHdpZHRo QVdcCQPxInTknEcrMG8qSw 9yZGVyLWNv tYeceSUhUgHdj0bfCUVyZO eoYD1bcJbyF0SxvOC4LFMy p6j0Rs49G07jQ1DyjJO+PG LozTY6aDA1 bP8wQkGcGgP2OEikY459Rb FzmXJvAtpmu2zln9qdeYg5 LnC1PZDirkLktMnmQKP5s4 DeVj77W58f IHdpZHRoPSIxNSUiIHZhbG rbxf2gpV5aCn6+PGNvbCB3 oSQ5cF4tYrJnXeL8PLdcS0 49InRvcCIv Nwrly3phv0gjjLu8EwBaGU TczqEbfXtzPVG3u0ZsQd03 A8BgyOpda6VnZgn6tw77fL Zxv0C6iRC2 B5QpWLJljtlopXHfyGtmCI 5zBTFiuosaGZDzbM6xJRQr A2h3RvJhRrW4LYtcM1Qphn K2LCXwdPUs CKTlaAMYaN5eeftyi2snda okBcLwSRQkNZl0QIr5RFHm bIrrUgHdNDM3MoW2ABH2rJ PvuJ3myXkg eogqyU2fVem+RIK1vINvaM YECO7jJhdpeBM+PHRkIHN0 dZblJLnpYYNoyG6xACYlK2 z4SoOvQpL7 PFbsH7UxfjY5PDAttTBtAN BsxHVHoI7lhuujb9cahsyq WoFkVZFxPAb6JQq6YLZklC duOiBsZWZ0 YxN7EMT7hFJdnG7jwLzptg tfoU7gPux+QmlydGggRGF0 BUg9H9ZdXhs6MXUuuTiiZB 0ncGFkZGlu Jy6jeKcabMucMI9lRSXpzv kcb717FfHey0duCNEnwRJf KGkdITP6Z24uz5T8RAQzKS PcZEP1fJG6 bN0jlTcgbsnvxTRfaUpmmy BunCdpWIjdIPbjJ523PQYz yTccCuYvIVf9F8WqXyf1LN NakAjfXZ1k rEDlTKwgMr5epVxbpYekUI 1kPZYggdixn182TwOkg1sf XHPqdITaBGrpNME5Q69ax3 D6ZOJpZAPd BND3kZB8hL1gnUuijmexrL VmdDsgdmVydGljYWwtYWxp B212OKTdtZgnGkYnnWv6N8 QjPsj7YRAw xCboVC4peFFuEMixMa2qkN elcOyvPW7zEHWmguvnb491 DkJha5jwXTUcfOTcKNmeYZ M9O21hn3L9 HTApFURrNLT1bOB9cP1urW lnbjogbGVmdDsgdmVydGlj UUvfXAzhG684RHVzxWioXr BhdGllbnQg NPotATk5C1SrBnyppOG+PC 14HJVaAH74yFUnoPOyy7vb mOm9IlUwHZPbGZW4uDejGX xqq6RpVOGx M31ysPJjm1L0EJPyfLsmzL TyYsLniDD9dU5jQJqedmsm j6rsyngkVqtep2kekq87wC 78L57fFJuk ZHRoPSIzMCUiIHZhbGlnbj 7noL6aZk9+ILNycBY5dCT4 cA5oCOLoFeV1ZYxyJ628Zd RvcCIvPjxj c9ovf0uitIl1VnH3XYRuha QduQttPAK4a0FxYa11Z67y IHdpZHRoPSIyMCUiIHZhbG uvmv0vmT8x Ii8+ERSzuOL6uWT2dH2iSm VqVxA3MQrkR601EoDquEWl UerhZ97pW3QuzFF+PHRyPj m2JNSkzKyg KC1xoOMnJExwLj2mGYX7Rc JiNyRuMBrjO9ZxOSDqntui vphnrBR3OXYrCCRliV98Dt 9udDogMTBw aOLVfX6drxzwu4ptfkvkAx QjNPNbOWy6MSq6UEIvfKmt FbIcETD6ShY2OLK7iZUevJ 1hbGlnbjog pT6zS3AkCZCcqxwcOb88aE 4wBjPgClJ1PLxnCxn+SE9X QVJELCBTVEFDSUUgTEVFPC 25NY37bZBq l2O8lJF1Q3BgKUXsrivpkl posKP2YORmWNAigC60jVFa CUsjBd6md0I2t641LBSdKW FnwS09Nr1l bZkuAYElwYSHoB2bfvons5 zmfamaRgBvWWXbMYr8QEb3 GIVjsWsoVoYsXYY5XgJ7DP W5uQEwyJ4j sEvsvgjyzR5bNdk+MDcvMz XcMIx6GhwxdAP+PHRkIHN0 wMneMXvmVGRioQ9eHPRxH5 m5KvAcYwE4 PMonL4ViSILvkznhZr68kH 4jSoTeItH1ECagV7AjumY1 MRMjbIRzAGjhSHL3F73ij1 K8VCUxBICi UWK3lAV3yC9nxIxbsaggjW VmdDsgdmVydGljYWwtYWxp W788SVKtgPsmCxZ0HYetJC UvEF78DX99 kGQok6C4vWV7Z7YeKYGwlf cqqbhtuMG0PJToDCHjnK19 nAZcKYaiZo1zl7H7g945LW VfFXZjqO26 Cj5syXvjGRQuyKHOdE3ovd gwc6vfykqzPaQfFOTzQMc9 VZw7QIQgaOnoRsNnYLM5Gh E4CFQ6kKKm nF7caMewdsyluY7kOmr+Rk NFJWjRSX55BV46gZMna5P3 fYZ8V2CmYGWwyyzzxbzyvL K9UCQqRAPz eU04tHJwBMbsOj0kb8S6p4 57EZLnGJRcpC35Tw7fzIoh LSLmvZRQqI7sglqif7gwic ogIzAwMDAw ESt1AYr8DXUdiXexAnTnLG Q2YaA5ORN5nJDdcM6zyWhk aghmfR2oJju+YP7fdmcjhk G7WY20XN36 N3TqOqtoyAAptOB+PHRhYm xlIHdpZHRoPScxMDAlJyBz hPlxBG8ySh9qHXEpZFNpyG xhcHNlOiBj l4yySJUkMSuzGO6jfCqwP3 PfuJM2MBVvn5k0Hn33U23b V5PyrKG+EYMkbCF3bBZ0cK 2qAnXiFuE6 DEwuM176YiGcoNDhKjbyg7 fmd4yqmTn2TaWrBPAymoKe eVcbMYC7j1GeTd91P19fYP dpZHRoPSIy ZRKmYRDlbTcrhi9msH9jSq 8+FBZvlVZ3rSA5tK2fKoGi AjQ5GZtuZ957HcHduBZgDe ayO05iG9Du dXA+BLThWtw0TFUysVwjAN 2gcFFgOKtkYw6eZUX4NnSu WfOiXGubL6EqLQVehovpyu vagUM5COUt CHFpsE75Lp2acFroGq5rSD PrMHB9TGMfdNNmQ4FtpQ7o DaKhUWNgLPVcS9EzeBLbKU ifG291ATgd KjO6PSVxynFrK0ZoNFQlvM zxMkI8e3U3Cu3CvGwpoEPj SS4hNiLsDLi1K7ZaIkq7SW AniDdkUL3a vHRvXAwuNh4zaPsynLmvKI 5uCOBlwnzwd712XiLcy8ko GWAowYOwPDpcCJC8Z91fg8 P8JMLyRLKh QKH9wYS0mO8huCbjgxkcmS VmdDsgdmVydGljYWwtYWxp E606EZBemAecArSLVse8T2 ToHdd1QGKq fZnpHZ7pbQDpRIisOx8pnE vgqFmeEU3lRQIawtvjb734 EwPgq4xvWVHpqVNxDEibFJ S1R31eu4V6 XVGwIKQeRVN4eWG8zY4lbU lnbjogbGVmdDsgdmVydGlj CQfsJFhiB698ROZusCkbMc 8AYiv8Z2Tk Loi1YSCbkVyzEB1chBNsLX gbDh4diMxheVsjWD3dHVYa vgiyh962QlUzi6odUCKycU QgVGltZXM7 I51db4U3RKIjRRXoUBM7lA W1iB4rxKkkasfbkCMtbZza iaUamLbgUEeaJQnlC331KV RvcDsnPlBh eWVyOjwvdGQ+DV85zz32S4 SkSkayPqt8RXUaPZD9eNZ6 sS4cPKWoJTmdm5G8hVZ4Q5 NcvvQrgz1v b2x (more content not included)... [facility] Release of Informationon Release of Information [id number]#1.[address] [place] [address] Consent Formson 06-12-2024 Consent Forms [id number]#1.[address] [place] [address] .Auto Diff 06-11-2024 Auto [place] % 6 % Normal -12 [facility] Comment on above: Performed By: #### 7 [id number], [id number], [id number] #### [facility] (DEFAULT) [address] [place] [address] 78463 Baso Abs# 0.0 x10 Normal 0.0-0.2 [facility] Comment on above: Performed By: #### 7 429809, [id number], [id number] #### [facility] (DEFAULT) [address] [place] [address] 25913 Basophils/100 WBC (Bld) 0.7 % Normal 0.2-2.0 [facility] Comment on above: Performed By: #### 7 390077, [id number], [id number] #### [facility] (DEFAULT) [address] [place] [address] 43690 Eos Abs# 0.0 x10 Normal 0.0-0.4 [facility] Comment on above: Performed By: #### 7 427435, [id number], [id number] #### [facility] (DEFAULT) [address] [place] [address] 61056 Eosinophils/100 WBC (Bld) 0.8 % Low 0.9-4.0 [facility] Comment on above: Performed By: #### 7 874145, [id number], [id number] #### [facility] (DEFAULT) [address] [place] [address] 37954 Lymph Abs# 2.0 x10 Normal 1.3-2.9 [facility] Comment on above: Performed By: #### 7 946617, [id number], [id number] #### [facility] (DEFAULT) [address] [place] [address] 53272 Lymphocytes/100 WBC (Bld) 37 % Normal 14-48 [facility] Comment on above: Performed By: #### 7 800640, [id number], [id number] #### [facility] (DEFAULT) [address] [place] [address] 46783 [place]uda Abs# 0.3 x10 Normal 0.0-0.8 [facility] Comment on above: Performed By: #### 7 823554, [id number], [id number] #### [facility] (DEFAULT) [address] [place] [address] Neut Abs# 3.1 x10 Normal 1.5-9.2 [facility] Comment on above: Performed By: #### 7 036833, [id number], [id number] #### [facility] (DEFAULT) [address] [place] [address] Neutrophils/100 WBC (Bld) 56 % Normal 44-88 [facility] Comment on above: Performed By: #### 7 545483, [id number], [id number] #### [facility] (DEFAULT) [address] [place] [address] CBC w/ Auto Diffon 4 Man Diff? Auto Normal [facility] Comment on above: Performed By: #### 7 116332, [id number], [id number] #### [facility] (DEFAULT) [address] [place] [address] Erythrocyte distribution width (RBC) [Ratio] 20.0 % High 11.5-15.0 [facility] Comment on above: Performed By: #### 7 578197, [id number], [id number] #### [facility] (DEFAULT) [address] [place] [address] Hematocrit (Bld) [Volume fraction] 35.5 % Normal 33.7-40.4 [facility] Comment on above: Performed By: #### 7 708240, [id number], [id number] #### [facility] (DEFAULT) [address] [place] [address] Hemoglobin (Bld) [Mass/Vol] 11.3 g/dL Normal 11.3-15.9 [facility] Comment on above: Performed By: #### 7 400397, [id number], [id number] #### [facility] (DEFAULT) [address] [place] [address] MCH (RBC) [Entitic mass] 23 pg Low 24-34 [facility] Comment on above: Performed By: #### 7 955999, [id number], [id number] #### [facility] (DEFAULT) [address] [place] [address] MCHC (RBC) [Mass/Vol] 32 g/dL Normal 26-37 [facility] Comment on above: Performed By: #### 7 768855, [id number], [id number] #### [facility] (DEFAULT) [address] [place] [address] MCV (RBC) [Entitic vol] 73 fL Low 81-100 [facility] Comment on above: Performed By: #### 7 735778, [id number], [id number] #### [facility] (DEFAULT) [address] [place] [address] Platelet 432 x10 High 138-427 [facility] Comment on above: Performed By: #### 7 448692, [id number], [id number] #### [facility] (DEFAULT) [address] [place] [address] Platelet mean volume (Bld) [Entitic vol] 7.8 fL Normal 6.3-10.2 [facility] Comment on above: Performed By: #### 7 540920, [id number], [id number] #### [facility] (DEFAULT) [address] [place] [address] RBC 4.87 x10 Normal 3.70-5.30 [facility] Comment on above: Performed By: #### 7 946751, [id number], [id number] #### [facility] (DEFAULT) [address] [place] [address] WBC 5.5 x10 Normal 3.5-10.5 [facility] Comment on above: Performed By: #### 7 571482, [id number], [id number] #### [facility] (DEFAULT) [address] [place] [address] CMP Standardon 06-11-2024 eGFR Non AA >60 Invalid Interpretation Code [facility] Comment on above: Performed By: #### 7 181700, [id number], [id number] ####[facility] (DEFAULT)[address] [place] [address] eGFR AA >60 Invalid Interpretation Code [facility] Comment on above: Performed By: #### 7 489112, [id number], [id number] ####[facility] (DEFAULT)[address] [place] [address] 25986 Albumin [Mass/Vol] 4.2 g/dL Normal 3.5-5.0 [facility] Comment on above: Performed By: #### 7 800349, [id number], 36055352 ####[facility] (DEFAULT)[address] [place] [address] 24683 Albumin/Globulin [Mass ratio] 1.0 {ratio} Low 1.4-2.6 [facility] Comment on above: Performed By: #### 7 301678, [id number], [id number] ####[facility] (DEFAULT)[address] [place] [address] 48369 Alk Phos 61 IU/L Normal 32-91 [facility] Comment on above: Performed By: #### 7 394343, [id number], [id number] ####[facility] (DEFAULT)[address] [place] [address] 15306 ALT [Catalytic activity/Vol] 28.0 U/L Normal 14.0-54.0 [facility] Comment on above: Performed By: #### 7 873461, [id number], [id number] ####[facility] (DEFAULT)[address] [place] [address] 99598 Anion gap [Moles/Vol] 12.4 mmol/L Normal 5.0-19.0 [facility] Comment on above: Performed By: #### 7 417335, [id number], [id number] ####[facility] (DEFAULT)[address] [place] [address] 89419 AST [Catalytic activity/Vol] 23 U/L Normal 15-41 [facility] Comment on above: Performed By: #### 7 753636, [id number], 85435591 ####[facility] (DEFAULT)[address] [place] [address] 34557 Bili Total 0.8 mg/dL Normal 0.3-1.2 [facility] Comment on above: Performed By: #### 7 571933, [id number], 70974039 ####[facility] (DEFAULT)[address] [place] [address] 84041 Calcium [Mass/Vol] 9.1 mg/dL Normal 8.9-10.3 [facility] Comment on above: Performed By: #### 7 392932, [id number], 55838776 ####[facility] (DEFAULT)[address] [place] [address] 00063 Chloride [Moles/Vol] 106 mmol/L Normal 101-111 [facility] Comment on above: Performed By: #### 7 344342, [id number], 35252041 ####[facility] (DEFAULT)[address] [place] [address] 97955 CO2 [Moles/Vol] 23 mmol/L Normal 21-32 [facility] Comment on above: Performed By: #### 7 120732, [id number], 49106546 ####[facility] (DEFAULT)[address] [place] [address] 87531 Creatinine [Mass/Vol] 0.78 mg/dL Normal 0.60-1.30 [facility] Comment on above: Performed By: #### 7 146694, [id number], 39152495 ####[facility] (DEFAULT)[address] [place] [address] 20844 Globulin (S) [Mass/Vol] 4.1 g/dL Normal 1.5-4.3 [facility] Comment on above: Performed By: #### 7 604004, [id number], [id number] ####[facility] (DEFAULT)[address] [place] [address] 33520 Glucose [Mass/Vol] 104.0 mg/dL Normal 74.0-118.0 [facility] Comment on above: Performed By: #### 7 113904, [id number], 44182579 ####[facility] (DEFAULT)[address] [place] [address] 69453 Osmolality 274 mOsm/L Invalid Interpretation Code [facility] Comment on above: Performed By: #### 7 230027, [id number], 02749844 ####[facility] (DEFAULT)[address] [place] [address] 80321 Potassium [Moles/Vol] 3.4 mmol/L Low 3.6-5.1 [facility] Comment on above: Performed By: #### 7 796624, [id number], 44956726 ####[facility] (DEFAULT)[address] [place] [address] 62701 Protein [Mass/Vol] 8.3 g/dL High 6.5-8.1 [facility] Comment on above: Performed By: #### 7 179792, [id number], [id number] ####[facility] (DEFAULT)[address] [place] [address] Sodium [Moles/Vol] 138.0 mmol/L Normal 136.0-144.0 [facility] Comment on above: Performed By: #### 7 538510, [id number], 58786782 ####[facility] (DEFAULT)[address] [place] [address] 23346 Urea nitrogen [Mass/Vol] 8 mg/dL Normal 8-26 [facility] Comment on above: Performed By: #### 7 904221, [id number], 58294860 ####[facility] (DEFAULT)[address] [place] [address] Urea nitrogen/Creatinine [Mass ratio] 10.2 mg/mg Normal 4.6-16.2 [facility] Comment on above: Performed By: #### 7 202359, [id number], 37920605 ####[facility] (DEFAULT)[address] [place] [address] 51129 Breakpoint Chem Normal [facility] Comment on above: Performed By: #### 7 183548, [id number], 16668424 ####[facility] (DEFAULT)[address] [place] [address] 99952 ED Clinical Summaryon 2023 ED Clinical Summary [facility] - Emergency Department [address] [place] [address]37 ED Clinical Summary PERSON INFORMATION Name: ANTONIA NOYOLA Age: 39 Years Sex: FEMALE : 1985 MRN: Acct#: Visit Reason: Abdominal pain; RT SIDE ABD PAIN Arrival: 06/11/2024 15:13:20 Discharge: 06/11/2024 18:32:00 LOS: 000 03:19 Check In: 06/11/2024 15:13:20 Checkout:06/11/2024 18:32:00 Address: [address] [place] [address] PCP: Provider, None PROVIDER INFORMATION Provider Role Assigned Unassigned Letty RN, Celestina Leos ED Nurse 06/11/2024 15:15:36 Lenka Padilla URGENT CARE PHYSICIAN ASSISTANT ED PA 06/11/2024 15:17:46 Eran Hill MD [...] Home PATIENT EDUCATION INFORMATION Instructions: Ovarian Cyst, Zpkg-st-Bldc Follow-Up: With: Address: When: Provider, None [address] [place] [address] Within 3 to 5 days Comments: Please call Dr. Wilson office and see if you can be seen sooner than June 18. CT scan shows a possible right ovarian cyst. This needs further evaluation from an CONVENTION [employer]ER specialist. Continue taking medication as needed for pain. May take Tylenol 1000 mg every 6 hours as needed for pain. May take ibuprofen 600 mg every 8 hours as needed for pain. DIAGNOSIS: 1:Other ovarian cyst, right side Patient Understands: Yes - Patient/family/caregiv er verbalizes understanding of instructions given Comment: Normal [facility] ED Patient Summaryon 024 ED Patient Summary [facility] - Emergency Department [address] [place], [place] [id number] PATIENT DISCHARGE INSTRUCTIONS Patient Information Name: ANTONIA NOYOLA Age: 39 Years Date of : 1985 [facility]: [id number] Reason For Visit: Abdominal pain; RT SIDE ABD PAIN Arrival Time: 06/11/2024 15:13:20 Primary Care Physician: Mana, Shazia Attending Physician: Eran Hill MD Comment: Visit Diagnosis: Diagnoses This Visit Abdominal pain ([id number]) Other ovarian cyst, right side (N83.291) The Pharmacy at [facility] is open Tuesday through Tuesday from [...] alcohol and/or drug addiction problems; contact the [facility] 03/01 Crisis Hotline -text 4hope [...] legal documents With: Address: When: Provider, Shazia [address] [place] [address] Within 3 to 5 days Comments: Please call Dr. Wilson office and see if you can be seen sooner than June 18. CT scan shows a possible right ovarian cyst. This needs further evaluation from an CONVENTION WORKER specialist. Continue taking medication as needed for pain. May take Tylenol 1000 mg every 6 hours as needed for pain. May take ibuprofen 600 mg every 8 hours as needed for pain. Medication Information: The exam and treatment you received today in the [facility] Emergency Department were for an urgent problem and are not intended as complete care. It is important for you to follow up with a doctor, nurse practitioner, or physician?s corporate legal assistant for ongoing care. If your [...] we can reach you if necessary. [facility] Emergency Department has provided you with a complete list of medications post discharge. Please inform your mill laborer/provider of your visit and for further instruction [...] syndrom (more content not included)... Normal [facility] UA w Culture if Ind Standard on 06-11-2024 Breakpoint UA [facility] Comment on above: Performed By: #### 1 [id number] ####[facility] (DEFAULT)[address] [place] [address] 05260 Color (U) Yellow [facility] Comment on above: Performed By: #### 1 [id number] ####[facility] (DEFAULT)[address] [place] [address] Culture? Not Indicated Invalid Interpretation Code [facility] Comment on above: Result Comment: Resu lt created by rule GL_MAGR_ADD_UA_CULT1 Performed By: #### 1 [id number] ####[facility] (DEFAULT)[address] [place] [address] 32239 Glucose (U) [Mass/Vol] Negative [facility] Comment on above: Performed By: #### 1 [id number] ####[facility] (DEFAULT)[address] [place] [address] 13293 Ketones Ql (U) Negative [facility] Comment on above: Performed By: #### 1 [id number] ####[facility] (DEFAULT)[address] [place] [address] 30561 Micro? Not Indicated Invalid Interpretation Code [facility] Comment on above: Result Comment: Resu lt created by rule GL_MAGR_ADD_UA_MICRO Performed By: #### 1 [id number] ####[facility] (DEFAULT)[address] [place] [address] 71099 UA Bilirubin Negative Normal [facility] Comment on above: Performed By: #### 1 [id number] ####[facility] (DEFAULT)[address] [place] [address] 23592 UA Blood Negative Normal NEGATIVE [facility] Comment on above: Performed By: #### 1 [id number] ####[facility] (DEFAULT)[address] [place] [address] 71130 UA Clarity CLEAR Normal CLEAR [facility] Comment on above: Performed By: #### 1 [id number] ####[facility] (DEFAULT)[address] [place] [address] 01653 UA Leuk Est Negative Normal NEGATIVE [facility] Comment on above: Performed By: #### 1 [id number] ####[facility] (DEFAULT)[address] [place] [address] 05866 UA Nitrite Negative Normal NEGATIVE [facility] Comment on above: Performed By: #### 1 [id number] ####[facility] (DEFAULT)[address] [place] [address] 57377 UA pH 6.5 Normal 5-8 [facility] Comment on above: Performed By: #### 1 [id number] ####[facility] (DEFAULT)[address] [place] [address] 62099 UA Protein Negative Normal NEGATIVE [facility] Comment on above: Performed By: #### 1 [id number] ####[facility] (DEFAULT)[address] [place] [address] 96400 UA Spec Grav 1.010 Normal 1.001-1.035 [facility] Comment on above: Performed By: #### 1 [id number] ####[facility] (DEFAULT)[address] [place] [address] 25218 UA Urobilinogen 0.2 mg/dL Normal 0.2-1.0 [facility] Comment on above: Performed By: #### 1 [id number] ####[facility] (DEFAULT)[address] [place] [address] 74227 Urine Source Clean Catch Normal [facility] Comment on above: Performed By: #### 1 [id number] ####[facility] (DEFAULT)[address] [place] [address] 01895 US Pelvis Non-OB Completeon 06-11-2024 US Pelvis [...] Rina Rushing MD 06/11/24 6:46 pm Technologist: [facility] US Transvaginalon 06-11-2024 US Transvaginal EXAM: [...] Rina Rushing MD 06/11/24 6:46 pm Technologist: [facility] CBC AND AUTO DIFFon 06-10-20 ABSOLUTE BASOPHIL 0.1 X10E9/L Normal 0.0-0.2 [facility] Comment on above: Performed By: #### C BCA, CMP, 56481-7 #### [facility] ([id number]) [address], [address] [place] [address] ABSOLUTE NEUTROPHIL 3.8 X10E9/L Normal 1.5-6.6 [facility] Comment on above: Performed By: #### C BCA, CMP, 54590-0 #### [facility] ([id number]) [address] [place] [address] Basophils/100 WBC (Bld) 0.9 % Normal [facility] Comment on above: Performed By: #### C HEATH CMP, 87527-2 #### [facility] ([id number]) [address], [facility] [address] [place] [address] Eosinophils (Bld) [#/Vol] 0.0 10*3/uL Normal 0.0-0.4 [facility] Comment on above: Performed By: #### C HEATH, CMP, 06676-6 #### [facility] ([id number]) [address] [address] [place] [address] Eosinophils/100 WBC (Bld) 0.6 % Normal [facility] Comment on above: Performed By: #### Leila JOE, CMP, 86049-3 #### [facility] ([id number]) [address], [facility] [address] [place] [address] Erythrocyte distribution width (RBC) [Ratio] 20.0 % High 11.5-15.0 [facility] Comment on above: Performed By: #### Leila JOE CMP, 06606-3 #### [facility] ([id number]) [address], [facility] [address] [place] [address] Hematocrit (Bld) [Volume fraction] 31.9 % Low 35-47 [facility] Comment on above: Performed By: #### Leila JOE CMP, 26806-9 #### [facility] ([id number]) [address], [facility] [address] [place] [address] Hemoglobin (Bld) [Mass/Vol] 10.2 g/dL Low 11.7-15.5 [facility] Comment on above: Performed By: #### Leila JOE, CMP, 75639-9 #### [facility] ([id number]) [address] [address] [place] [address] Lymphocytes (Bld) [#/Vol] 3.1 10*3/uL Normal 1.0-3.5 [facility] Comment on above: Performed By: #### C HEATH CMP, 16554-6 #### [facility] ([id number]) [address] [place] [address] Lymphocytes/100 WBC (Bld) 41.0 % Normal [facility] Comment on above: Performed By: #### Leila JOE, CMP, 81660-8 #### [facility] ([id number]) [address], [facility] [address] [place] [address] MCH (RBC) [Entitic mass] 22.8 pg Low 27-34 [facility] Comment on above: Performed By: #### Leila JOE, CMP, 70854-2 #### [facility] ([id number]) [address], [facility] [address] [place] [address] MCHC (RBC) [Mass/Vol] 31.9 g/dL Low 32-36 [facility] Comment on above: Performed By: #### Leila JOE, CMP, 75494-3 #### [facility] ([id number]) [address] [place] [address] MCV (RBC) [Entitic vol] 72 fL Low 80-100 [facility] Comment on above: Performed By: #### Leial JOE CMP, 15463-8 #### [facility] ([id number]) [address] [place] [address] Monocytes (Bld) [#/Vol] 0.5 10*3/uL Normal 0-0.9 [facility] Comment on above: Performed By: #### Leila BCA, CMP, 24084-3 #### [facility] ([id number]) [address] [place] [address] Monocytes/100 WBC (Bld) 6.6 % Normal [facility] Comment on above: Performed By: #### C BCA, CMP, 20594-5 #### [facility] ([id number]) [address] [address] Neutrophils/100 WBC (Bld) 50.9 % Normal [facility] Comment on above: Performed By: #### Leila BCA, CMP, 29439-2 #### [facility] ([id number]) [address] [address] Platelet mean volume (Bld) [Entitic vol] 7.4 fL Normal 7-12 [facility] Comment on above: Performed By: #### Leila JOE, CMP, 17638-9 #### [facility] ([id number]) [address] [address] Platelets (Bld) [#/Vol] 415 10*3/uL Normal 150-450 [facility] Comment on above: Performed By: #### Leila JOE, CMP, 97987-5 #### [facility] ([id number]) [address] [address] RBC COUNT 4.46 X10E12/L Normal 3.80-5.20 [facility] Comment on above: Performed By: #### Leila JOE, CMP, 56875-5 #### [facility] ([id number]) [address] [address] WBC (Bld) [#/Vol] 7.5 10*3/uL Normal 4.0-11.0 [facility] Comment on above: Performed By: #### Leila BCA, CMP, 29058-8 #### [facility] ([id number]) [address] [address] CHLAMYDIA/GC BY PCRon 2023 CHLAMYDIA/GC BY PCR [...] on adequate specimen collection. Normal [facility] Comment on above: Performed By: #### C BCA, CMP #### [facility] ([id number]) [address] [place] [address] COMPREHENSIVE METABOLIC PANE Van 06-10-2024 Albumin [Mass/Vol] 4.0 g/dL Normal 3.2-5.3 [facility] Comment on above: Performed By: #### C BCA, CMP, 99959-2 #### [facility] ([id number]) [address], [address] [place] [address] ALP [Catalytic activity/Vol] 65 U/L Normal 39-130 [facility] Comment on above: Performed By: #### C BCA, CMP, 25364-2 #### [facility] ([id number]) [address], [address] [place] [address] ALT [Catalytic activity/Vol] 32 U/L High 0-31 [facility] Comment on above: Performed By: #### C BCA, CMP, 35154-5 #### [facility] ([id number]) [address], [address] [place] [address] Anion gap [Moles/Vol] 11 mmol/L Normal 5-15 [facility] Comment on above: Performed By: #### C BCA, CMP, 40640-8 #### [facility] ([id number]) [address], [address] [place] [address] AST [Catalytic activity/Vol] 29 U/L Normal 0-41 [facility] Comment on above: Performed By: #### C BCA, CMP, 74672-9 #### [facility] ([id number]) [address], [address] [place] [address] Bilirubin [Mass/Vol] 0.6 mg/dL Normal 0.3-1.2 [facility] Comment on above: Performed By: #### C HEATH, CMP, 36087-7 #### [facility] ([id number]) [address], [address] [place] [address] Calcium [Mass/Vol] 9.0 mg/dL Normal 8.5-10.5 [facility] Comment on above: Performed By: #### C BCA, CMP, 47008-9 #### [facility] ([id number]) [address], [facility] [address] [place] [address] Chloride [Moles/Vol] 105 mmol/L Normal 98-109 [facility] Comment on above: Performed By: #### C BCA, CMP, 36372-6 #### [facility] ([id number]) [address], [address] [place] [address] CO2 [Moles/Vol] 24 mmol/L Normal 22-32 [facility] Comment on above: Performed By: #### C BCA, CMP, 10548-7 #### [facility] ([id number]) [address], [address] [place] [address] Creatinine [Mass/Vol] 0.76 mg/dL Normal 0.40-1.00 [facility] Comment on above: Result Comment: METH OD TRACEABLE TO IDMS STANDARD Performed By: #### C HEATH, CMP, 31716-1 #### [facility] ([id number]) [address], [address] [place] [address] eGFR (CKD-EPI) NON-RACE DEPENDENT >90 Normal >59 [facility] Comment on above: Result Comment: Reported eGFR is based on the CKD-EPI 2020 equation that does not use a race coefficient. Performed By: #### C BCA, CMP, 18110-8 #### [facility] ([id number]) [address], [address] [place] [address] Glucose [Mass/Vol] 119 mg/dL High 65-99 [facility] Comment on above: Performed By: #### Leila JOE, CMP, 80051-8 #### [facility] ([id number]) [address], [address] [place] [address] Potassium [Moles/Vol] 3.3 mmol/L Low 3.5-5.0 [facility] Comment on above: Performed By: #### Leila JOE, CMP, 06227-8 #### [facility] ([id number]) [address], [address] [place] [address] Protein [Mass/Vol] 7.2 g/dL Normal 6.0-8.0 [facility] Comment on above: Performed By: #### Leila JOE, CMP, 85438-3 #### [facility] ([id number]) [address], [address] [place] [address] Sodium [Moles/Vol] 140 mmol/L Normal 134-146 [facility] Comment on above: Performed By: #### Liela JOE, CMP, 84563-5 #### [facility] ([id number]) [address], [address] [place] [address] Urea nitrogen [Mass/Vol] 7 mg/dL Normal 5-23 [facility] Comment on above: Performed By: #### Leila JOE, CMP, 97113-8 #### [facility] ([id number]) [address], [address] [place] [address] Follitropin Qnon 06-10-2024 FOLLICLE STIM HORMONE 6.7 mIU/mL Normal [facility] Comment on above: Result Comment: NORMAL FEMALE Luteal 1.8-5.1 mIU/mL Follicular 3.8-8.8 mIU/mL Mid Cycle 4.5-22.5 mIU/mL Post Alexa 16.7-113.6 mIU/mL Performed By: #### C BCA, [facility], 54282-6 #### [facility] ([id number]) [address] [facility], [address] [place] [address] URN MACROSCOPIC NURon 2023 BILIRUBIN AUDREY Small Abnormal NEG [facility] Comment on above: Performed By: #### N UM #### [facility] ([id number]) [address] [place] [address] BLOOD/HGB AUDREY Negative Normal NEG [facility] Comment on above: Performed By: #### N UM #### [facility] ([id number]) [address] [place] [address] GLUCOSE AUDREY Negative Normal NEG [facility] Comment on above: Performed By: #### N UM #### [facility] ([id number]) [address] [place] [address] KETONES AUDREY 15 mg/dL Abnormal NEG [facility] Comment on above: Performed By: #### N UM #### [facility] ([id number]) [address] [place] [address] LEUKOCYTE ESTERASE AUDREY Negative Normal NEG Pr [facility] Comment on above: Performed By: #### N UM #### [facility] ([id number]) [address] [place] [address] NITRITE AUDREY Negative Normal NEG [facility] Comment on above: Performed By: #### N UM #### [facility] ([id number]) [address] [place] [address] PH AUDREY 5.5 Normal 5.0-8.5 [facility] Comment on above: Performed By: #### N UM #### [facility] ([id number]) [address] [place] [address] PROTEIN AUDREY Trace Abnormal NEG [facility] Comment on above: Performed By: #### N UM #### [facility] ([id number]) [address] [place] [address] SPECIFIC GRAVITY AUDREY >=1.030 Normal 1.003-1.035 [facility] Comment on above: Performed By: #### N UM #### [facility] ([id number]) [address] [place] [address] UROBILINOGEN AUDREY 0.2 eu/dL Normal <1.1 [facility] Comment on above: Performed By: #### N UM #### [facility] ([id number]) [address] [place] [address] US PELVIC WITH TRANSVAGINALo n 06-10-2024 US [...] El MD on 06/10/2024 10:18 AM Normal [facility] Urine collection deviceon ER EXTRA URINES ER EXTRA URINE ORDER IN PROCESS Normal [facility] VAGINITIS PANEL PCRon 12-29- 2024 VAGINITIS [...] to determine patient diagnosis. Normal [facility] Comment on above: Performed By: #### V PPCR #### [facility] ([id number]) [address] [place] [address] [address] [place] [address] CBC AND AUTO DIFFon 06-09-20 24 ABSOLUTE BASOPHIL 0.1 X10E9/L Normal 0.0-0.2 [facility] Comment on above: Performed By: #### 2 106-3 #### [facility] ([id number]) [address] [place] [address] ABSOLUTE NEUTROPHIL 2.7 X10E9/L Normal 1.5-6.6 [facility] Comment on above: Performed By: #### 2 106-3 #### [facility] ([id number]) [address] [place] [address] Basophils/100 WBC (Bld) 1.0 % Normal P [facility] Comment on above: Performed By: #### 2 106-3 #### [facility] ([id number]) [address] [place] [address] Eosinophils (Bld) [#/Vol] 0.1 10*3/uL Normal 0.0-0.4 [facility] Comment on above: Performed By: #### 2 106-3 #### [facility] ([id number]) [address] [place] [address] Eosinophils/100 WBC (Bld) 1.0 % Normal [facility] Comment on above: Performed By: #### 2 106-3 #### [facility] ([id number]) [address] [place] [address] Erythrocyte distribution width (RBC) [Ratio] 20.2 % High 11.5-15.0 [facility] Comment on above: Performed By: #### 2 106-3 #### [facility] ([id number]) [address] [place] [address] Hematocrit (Bld) [Volume fraction] 31.2 % Low 35-47 [facility] Comment on above: Performed By: #### 2 106-3 #### [facility] ([id number]) [address] [place] [address] Hemoglobin (Bld) [Mass/Vol] 10.2 g/dL Low 11.7-15.5 [facility] Comment on above: Performed By: #### 2 106-3 #### [facility] ([id number]) [address] [place] [address] Lymphocytes (Bld) [#/Vol] 2.6 10*3/uL Normal 1.0-3.5 [facility] Comment on above: Performed By: #### 2 106-3 #### [facility] ([id number]) [address] [place] [address] 79896 Lymphocytes/100 WBC (Bld) 44.6 % Normal [facility] Comment on above: Performed By: #### 2 106-3 #### [facility] ([id number]) [address] [place] [address] MCH (RBC) [Entitic mass] 23.5 pg Low 27-34 [facility] Comment on above: Performed By: #### 2 106-3 #### [facility] ([id number]) [address] [place] [address] 95[address] MCHC (RBC) [Mass/Vol] 32.8 g/dL Normal 32-36 [facility] Comment on above: Performed By: #### 2 106-3 #### [facility] ([id number]) [address] [place] [address] MCV (RBC) [Entitic vol] 72 fL Low 80-100 [facility] Comment on above: Performed By: #### 2 106-3 #### [facility] ([id number]) [address] [place] [address]35[address] Monocytes (Bld) [#/Vol] 0.5 10*3/uL Normal 0-0.9 [facility] Comment on above: Performed By: #### 2 106-3 #### [facility] ([id number]) [address] [place] [address] 80819 Monocytes/100 WBC (Bld) 7.7 % Normal [facility] Comment on above: Performed By: #### 2 106-3 #### [facility] ([id number]) [address] [place] [address] 35436 Neutrophils/100 WBC (Bld) 45.7 % Normal [facility] Comment on above: Performed By: #### 2 106-3 #### [facility] ([id number]) [address] [place] [address] 90042 Platelet mean volume (Bld) [Entitic vol] 7.5 fL Normal 7-12 [facility] Comment on above: Performed By: #### 2 106-3 #### [facility] ([id number]) [address] [place] [address] 41418 Platelets (Bld) [#/Vol] 438 10*3/uL Normal 150-450 [facility] Comment on above: Performed By: #### 2 106-3 #### [facility] ([id number]) [address] [place] [address] 43583 RBC COUNT 4.35 X10E12/L Normal 3.80-5.20 [facility] Comment on above: Performed By: #### 2 106-3 #### [facility] ([id number]) [address] [place] [address] 72856 WBC (Bld) [#/Vol] 5.9 10*3/uL Normal 4.0-11.0 [facility] Comment on above: Performed By: #### 2 106-3 #### [facility] ([id number]) [address] [place] [address] 79267 COMPREHENSIVE METABOLIC P[facility] 06-09-2024 Albumin [Mass/Vol] 4.1 g/dL Normal 3.2-5.3 [facility] Comment on above: Performed By: #### 2 106-3 #### [facility] ([id number]) [address] [place] [address] 13193 ALP [Catalytic activity/Vol] 68 U/L Normal 39-130 [facility] Comment on above: Performed By: #### 2 106-3 #### [facility] ([id number]) [address] [place] [address] 19333 ALT [Catalytic activity/Vol] 36 U/L High 0-31 [facility] Comment on above: Performed By: #### 2 106-3 #### [facility] ([id number]) [address] [place] [address] 78546 Anion gap [Moles/Vol] 9 mmol/L Normal 5-15 [facility] Comment on above: Performed By: #### 2 106-3 #### [facility] ([id number]) [address] [place] [address] 08731 AST [Catalytic activity/Vol] 30 U/L Normal 0-41 [facility] Comment on above: Performed By: #### 2 106-3 #### [facility] ([id number]) [address] [place] [address] 04610 Bilirubin [Mass/Vol] 0.7 mg/dL Normal 0.3-1.2 [facility] Comment on above: Performed By: #### 2 106-3 #### [facility] ([id number]) [address] [place] [address] 46239 Calcium [Mass/Vol] 9.3 mg/dL Normal 8.5-10.5 [facility] Comment on above: Performed By: #### 2 106-3 #### [facility] ([id number]) [address] [place] [address] 64407 Chloride [Moles/Vol] 108 mmol/L Normal 98-109 [facility] Comment on above: Performed By: #### 2 106-3 #### [facility] ([id number]) [address] [place] [address] 83365 CO2 [Moles/Vol] 22 mmol/L Normal 22-32 [facility] Comment on above: Performed By: #### 2 106-3 #### [facility] ([id number]) [address] [place] [address] 84877 Creatinine [Mass/Vol] 0.75 mg/dL Normal 0.40-1.00 [facility] Comment on above: Result Comment: METH OD TRACEABLE TO IDMS STANDARD Performed By: #### 2 106-3 #### [facility] ([id number]) [address] [place] [address] 88500 eGFR (CKD-EPI) NON-RACE DEPENDENT >90 Normal >59 [facility] Comment on above: Result Comment: Reported eGFR is based on the CKD-EPI 2020 equation that does not use a race coefficient. Performed By: #### 2 106-3 #### [facility] ([id number]) [address] [place] [address] 32995 Glucose [Mass/Vol] 103 mg/dL High 65-99 [facility] Comment on above: Performed By: #### 2 106-3 #### [facility] ([id number]) [address] [place] [address] 29339 Potassium [Moles/Vol] 3.8 mmol/L Normal 3.5-5.0 [facility] Comment on above: Performed By: #### 2 106-3 #### [facility] ([id number]) [address] [place] [address] 82220 Protein [Mass/Vol] 7.5 g/dL Normal 6.0-8.0 [facility] Comment on above: Performed By: #### 2 106-3 #### [facility] ([id number]) [address] [place] [address] 13937 Sodium [Moles/Vol] 139 mmol/L Normal 134-146 [facility] Comment on above: Performed By: #### 2 106-3 #### [facility] ([id number]) [address] [place] [address] [place] [address] Urea nitrogen [Mass/Vol] 7 mg/dL Normal 5-23 [facility] Comment on above: Performed By: #### 2 106-3 #### [facility] ([id number]) [address] [place] [address] 12672 LIPASEon 06-09-2024 Lipase [Catalytic activity/Vol] 37 U/L Normal 17-40 [facility] Comment on above: Performed By: #### 2 106-3 #### [facility] ([id number]) [address] [place] [address] 53582 Lactate (P arely) [Moles/Vol]o n 06-09-2024 LACTATE W/REFLEX 1.2 mmol/L Normal 0.4-2.0 [facility] Comment on above: Result Comment: Result did not trigger repeat Lactate, re-order if needed. Performed By: #### 2 106-3 #### [facility] ([id number]) [address] [place] [address] 96544 URINE CULTUREon 06-09-2024 Bacteria identified Cx Nom (U) CULTURE RESULTS 10-50,000 ORGANISMS/mL NORMAL UROGENITAL RASHID Normal [facility] Comment on above: Performed By: #### 6 30-4 ####[facility] ([id number])[address] [facility], [address], [place] [address] URN MACROSCOPIC NURon 2023 BILIRUBIN AUDREY Negative Normal NEG [facility] Comment on above: Performed By: #### N UM ####[facility] ([id number])[address] [place] [address] 86104 BLOOD/HGB AUDREY Trace Abnormal NEG [facility] Comment on above: Performed By: #### N UM ####[facility] ([id number])[address] [place] [address], [place] [address] GLUCOSE AUDREY Negative Normal NEG [facility] Comment on above: Performed By: #### N UM ####[facility] ([id number])[address] [place] [address], [place] [address] KETONES AUDREY Negative Normal NEG [facility] Comment on above: Performed By: #### N UM ####[facility] ([id number])[address] [place] [address], [place] [address] LEUKOCYTE ESTERASE AUDREY Trace Abnormal NEG Pr [facility] Comment on above: Performed By: #### N UM ####[facility] ([id number])[address] [place] [address] 30272 NITRITE AUDREY Negative Normal NEG [facility] Comment on above: Performed By: #### N UM ####[facility] ([id number])[address] [place] [address] 86921 PH AUDREY 6.5 Normal 5.0-8.5 [facility] Comment on above: Performed By: #### N UM ####[facility] ([id number])[address] [place] [address] 82436 PROTEIN AUDREY Negative Normal NEG [facility] Comment on above: Performed By: #### N UM ####[facility] ([id number])[address] [place] [address] 31271 SPECIFIC GRAVITY AUDREY 1.010 Normal 1.003-1.035 [facility] Comment on above: Performed By: #### N UM ####[facility] ([id number])[address] [place] [address] 30480 UROBILINOGEN AUDREY 1.0 eu/dL Normal <1.1 [facility] Comment on above: Performed By: #### N UM ####[facility] ([id number])[address] [place] [address] 92337 .Auto Diff 06-08-2024 Auto [place] % 5 % Normal 06-24 [facility] Comment on above: Performed By: #### 1 [id number], [id number], [id number], 1798475, [id number] ####[facility] (DEFAULT)[address] [place], [place] [address] Baso Abs# 0.1 x10 Normal 0.0-0.2 [facility] Comment on above: Performed By: #### 1 [id number], [id number], [id number], 9627041, [id number] ####[facility] (DEFAULT)[address] [place] [address] 11021 Basophils/100 WBC (Bld) 1.0 % Normal 0.2-2.0 [facility] Comment on above: Performed By: #### 1 [id number], [id number], [id number], 7531941, 78520217 ####[facility] (DEFAULT)[address] [place] [address] 25555 Eos Abs# 0.0 x10 Normal 0.0-0.4 [facility] Comment on above: Performed By: #### 1 [id number], [id number], [id number], 7683194, 10112936 ####[facility] (DEFAULT)[address] [place] [address] 65623 Eosinophils/100 WBC (Bld) 0.4 % Low 0.9-4.0 [facility] Comment on above: Performed By: #### 1 [id number], [id number], [id number], 9561510, 21113466 ####[facility] (DEFAULT)[address] [place] [address] 18936 Lymph Abs# 1.7 x10 Normal 1.3-2.9 [facility] Comment on above: Performed By: #### 1 [id number], [id number], [id number], 8284195, 31465044 ####[facility] (DEFAULT)[address] [place] [address] 62144 Lymphocytes/100 WBC (Bld) 27 % Normal 14-48 [facility] Comment on above: Performed By: #### 1 [id number], [id number], [id number], 7512621, 37612350 ####[facility] (DEFAULT)[address] [place] [address] 42009 [place] Abs# 0.3 x10 Normal 0.0-0.8 [facility] Comment on above: Performed By: #### 1 [id number], [id number], 0556732433, 3261355, 50487626 ####[facility] (DEFAULT)[address] [place] [address] 81188 Neut Abs# 4.2 x10 Normal 1.5-9.2 [facility] Comment on above: Performed By: #### 1 [id number], [id number], 4338322085, 9095849, 16266236 ####[facility] (DEFAULT)[address] [place] [address] Neutrophils/100 WBC (Bld) 66 % Normal 44-88 [facility] Comment on above: Performed By: #### 1 [id number], [id number], 5317577061, 2113143, 07315844 ####[facility] (DEFAULT)[address] [place] [address] CBC w/ Auto Diffon Erythrocyte distribution width (RBC) [Ratio] 20.2 % High 11.5-15.0 [facility] Comment on above: Performed By: #### 1 [id number], [id number], 5454636688, 5786446, 06628681 ####[facility] (DEFAULT)[address] [place] [address] Hematocrit (Bld) [Volume fraction] 34.5 % Normal 33.7-40.4 [facility] Comment on above: Performed By: #### 1 [id number], 4156607383, 4452396876, 8600335, 06417738 ####[facility] (DEFAULT)[address] [place] [address] Hemoglobin (Bld) [Mass/Vol] 10.9 g/dL Low 11.3-15.9 [facility] Comment on above: Performed By: #### 1 [id number], [id number], 1160475551, 5580487, 24508071 ####[facility] (DEFAULT)[address] [place] [address] Man Diff? Auto Invalid Interpretation Code [facility] Comment on above: Performed By: #### 1 [id number], 8578323298, 2852919506, 0232935, 35022985 ####[facility] (DEFAULT)[address] [place] [address] MCH (RBC) [Entitic mass] 23 pg Low 24-34 [facility] Comment on above: Performed By: #### 1 [id number], [id number], 4180557698, 8809267, 98720204 ####[facility] (DEFAULT)[address] [place] [address] 38280 MCHC (RBC) [Mass/Vol] 32 g/dL Normal 26-37 [facility] Comment on above: Performed By: #### 1 [id number], 7510753363, 4898989779, 8424737, 07277825 ####[facility] (DEFAULT)[address] [place] [address] MCV (RBC) [Entitic vol] 72 fL Low 81-100 M [facility] Comment on above: Performed By: #### 1 [id number], [id number], 5393818646, 0493288, 39133532 ####[facility] (DEFAULT)[address] [place] [address] Platelet 457 x10 High 138-427 [facility] Comment on above: Performed By: #### 1 [id number], [id number], 5139550379, 9634740, 92191745 ####[facility] (DEFAULT)[address] [place] [address] 58421 Platelet mean volume (Bld) [Entitic vol] 7.5 fL Normal 6.3-10.2 [facility] Comment on above: Performed By: #### 1 [id number], [id number], 2584629985, 5809104, 43236836 ####[facility] (DEFAULT)[address] [place] [address] RBC 4.77 x10 Normal 3.70-5.30 [facility] Comment on above: Performed By: #### 1 [id number], 5368272974, 1347636879, 4055677, [id number] ####[facility] (DEFAULT)[address] [place] [address] WBC 6.4 x10 Normal 3.5-10.5 [facility] Comment on above: Performed By: #### 1 [id number], [id number], [id number], [id number] ####[facility] (DEFAULT)[address] [place] [id number] Standardon 06-08-2024 eGFR Non AA >60 Invalid Interpretation Code [facility] Comment on above: Performed By: #### 1 [id number], [id number], [id number], [id number], [id number] ####[facility] (DEFAULT)[address] [place] [address] eGFR AA >60 Invalid Interpretation Code [facility] Comment on above: Performed By: #### 1 [id number], [id number], [id number], [id number], [id number] ####[facility] (DEFAULT)[address] [place] [address] Albumin [Mass/Vol] 4.3 g/dL Normal 3.5-5.0 [facility] Comment on above: Performed By: #### 1 [id number], [id number], [id number], [id number], [id number] ####[facility] (DEFAULT)[address] [place] [address] Albumin/Globulin [Mass ratio] 1.0 {ratio} Low 1.4-2.6 [facility] Comment on above: Performed By: #### 1 [id number], [id number], [id number], 0950428, [id number] ####[facility] (DEFAULT)[address] [place] [address] 40421 Alk Phos 63 IU/L Normal 32-91 [facility] Comment on above: Performed By: #### 1 [id number], [id number], [id number], 2053811, [id number] ####[facility] (DEFAULT)[address] [place] [address] ALT [Catalytic activity/Vol] 30.0 U/L Normal 14.0-54.0 [facility] Comment on above: Performed By: #### 1 [id number], [id number], 2149504020, 8214702, 80062598 ####[facility] (DEFAULT)[address] [place] [address] Anion gap [Moles/Vol] 12.9 mmol/L Normal 5.0-19.0 [facility] Comment on above: Performed By: #### 1 [id number], [id number], 3456941224, 0153160, 51103952 ####[facility] (DEFAULT)[address] [place] [address] 43008 AST [Catalytic activity/Vol] 22 U/L Normal 15-41 [facility] Comment on above: Performed By: #### 1 [id number], [id number], [id number], 1525249, 93207837 ####[facility] (DEFAULT)[address] [place] [address] 67624 Bili Total 0.5 mg/dL Normal 0.3-1.2 [facility] Comment on above: Performed By: #### 1 [id number], 3519404840, 6448529959, 4312300, 49682068 ####[facility] (DEFAULT)[address] [place] [address] 67357 Calcium [Mass/Vol] 9.3 mg/dL Normal 8.9-10.3 [facility] Comment on above: Performed By: #### 1 [id number], [id number], 6527417568, 6671494, 38096962 ####[facility] (DEFAULT)[address] [place] [address] 73479 Chloride [Moles/Vol] 106 mmol/L Normal 101-111 [facility] Comment on above: Performed By: #### 1 [id number], [id number], [id number], 0069329, 78398565 ####[facility] (DEFAULT)[address] [place] [address] 84824 CO2 [Moles/Vol] 22 mmol/L Normal 21-32 [facility] Comment on above: Performed By: #### 1 [id number], [id number], 5149332394, 0188603, 08746096 ####[facility] (DEFAULT)[address] [place] [address] 76108 Creatinine [Mass/Vol] 0.70 mg/dL Normal 0.60-1.30 [facility] Comment on above: Performed By: #### 1 [id number], [id number], 0723044684, 1211241, 16868312 ####[facility] (DEFAULT)[address] [place] [address] 15010 Globulin (S) [Mass/Vol] 4.0 g/dL Normal 1.5-4.3 [facility] Comment on above: Performed By: #### 1 [id number], [id number], 6328875268, 4840447, 93370331 ####[facility] (DEFAULT)[address] [place] [address] 85694 Glucose [Mass/Vol] 109.0 mg/dL Normal 74.0-118.0 [facility] Comment on above: Performed By: #### 1 [id number], [id number], 2795671653, 1426835, 30860914 ####[facility] (DEFAULT)[address] [place] [address] 36392 Osmolality 272 mOsm/L Invalid Interpretation Code [facility] Comment on above: Performed By: #### 1 [id number], 5990480110, 9209755029, 5347165, 17573989 ####[facility] (DEFAULT)[address] [place] [address] 85847 Potassium [Moles/Vol] 3.9 mmol/L Normal 3.6-5.1 [facility] Comment on above: Performed By: #### 1 [id number], 2880203647, 0481309275, 0260287, 11001194 ####[facility] (DEFAULT)[address] [place] [address] 19708 Protein [Mass/Vol] 8.3 g/dL High 6.5-8.1 [facility] Comment on above: Performed By: #### 1 [id number], [id number], 2298781177, 8742639, 29255041 ####[facility] (DEFAULT)[address] [place] [address] 57919 Sodium [Moles/Vol] 137.0 mmol/L Normal 136.0-144.0 [facility] Comment on above: Performed By: #### 1 [id number], 7096589939, 0082955937, 5448366, 96406144 ####[facility] (DEFAULT)[address] [place] [address] Urea nitrogen [Mass/Vol] 7 mg/dL Low 8-26 [facility] Comment on above: Performed By: #### 1 [id number], 8300442681, 9981717229, 4700602, 23460434 ####[facility] (DEFAULT)[address] [place] [address] Urea nitrogen/Creatinine [Mass ratio] 10.0 mg/mg Normal 4.6-16.2 [facility] Comment on above: Performed By: #### 1 [id number], 3658573127, 8857454614, 8214719, 01058892 ####[facility] (DEFAULT)[address] [place] [address] CT Abdomen/Pelvis w/ Contras ton 06-08-2024 CT [...] 06/08/24 9:36 pm Technologist: PREMA Miller [facility] ED Clinical Summaryon 2023 ED Clinical Summary [facility] - Emergency Department [address] [place] [address] ED Clinical Summary PERSON INFORMATION Name: ANTONIA NOYOLA Age: 39 Years Sex: FEMALE : 1985 MRN: Acct#: Visit Reason: Flank pain; Abdominal pain; ABDOMINAL PAIN Arrival: 06/08/2024 17:53:36 Discharge: 06/08/2024 22:16:00 LOS: 000 04:23 Check In: 06/08/2024 17:53:36 Checkout:06/08/2024 22:16:00 Address: [address] [place] [address] [place] [address] PCP: Provider, None PROVIDER INFORMATION Provider Role Assigned Unassigned Jasmyn Magana MD ED Provider 06/08/2024 18:36:34 Kendra Tobar GRAPE GROWER Nurse 06/08/2024 18:45:19 Radha Shabazz GRAPE [employer]OWER Nurse 06/08/2024 19:29:52 Sandeep Corea MD ED [...] understanding of instructions given Comment: Normal [facility] ED Patient Summaryon 024 ED Patient Summary [facility] - Emergency Department [address] [place] [address] PATIENT DISCHARGE INSTRUCTIONS Patient Information Name: ANTONIA NOYOLA Age: 39 Years Date of : 1985 Reason For Visit: Flank pain; Abdominal pain; ABDOMINAL PAIN Arrival Time: 06/08/2024 17:53:36 Primary Care Physician: Provider, None Attending Physician: Jasmyn Magana MD Comment: Visit Diagnosis: Diagnoses This Visit Abdominal pain ([id number]) Abdominal pain (R10.9) Abdominal pain in female patient (R10.9) Flank pain ([id number]) The Pharmacy at [facility] is open Tuesday through Tuesday from [...] alcohol and/or drug addiction problems; contact the [facility] 03/01 Crisis Hotline -Text 5WROU hg [phone]. If you received any narcotics, sedation, or [...] and treatment you received today in the [facility] Emergency Department were for an urgent problem and are not intended as complete care. It is important for you to follow up with a doctor, nurse practitioner, or physician?s corporate legal assistant for ongoing care. If your [...] we can reach you if necessary. [facility] Emergency Department has provided you with a complete list of medications post discharge. Please inform your mill laborer/provider of your visit and for further instruction [...] found Patient Education Endometriosis Follow-up with your CONVENTION WORKER to review this emergency department visit and [...] bleeding during menstrual (more content not included)... [facility] Extra Redon 06-08-2024 Tube Collected Yes Invalid Interpretation Code [facility] Comment on above: Performed By: #### 1 [id number], [id number], [id number], 0803806, 74084131 ####[facility] (DEFAULT)[address] [place] [address] 50965 Test Urine 1on U Preg Negative [facility] Comment on above: Performed By: #### 1 [id number], [id number] ####[facility] (DEFAULT)[address] [place] [address] 18050 U Preg Internal Control Pass [facility] Comment on above: Performed By: #### 1 [id number], [id number] ####[facility] (DEFAULT)[address] [place] [address] 99768 Progress Note - Nurseon 05-14 Progress Note [...] on: 06/08/2024 22:16 EST] Radha Shabazz RN [facility] UA w Culture if Ind Standard on 06-08-2024 Breakpoint UA [facility] Comment on above: Performed By: #### 1 [id number], [id number] ####[facility] (DEFAULT)[address] [place] [address] Color (U) Straw [facility] Comment on above: Performed By: #### 1 [id number], [id number] ####[facility] (DEFAULT)[address] [place] [address] Culture? Not Indicated Invalid Interpretation Code [facility] Comment on above: Result Comment: Resu lt created by rule GL_MAGR_ADD_UA_CULT1 Result created by rule GL_MAGR_ADD_UA_CULT1 Performed By: #### 1 [id number], [id number] ####[facility] (DEFAULT)[address] [place] [address] Glucose (U) [Mass/Vol] Negative [facility] Comment on above: Performed By: #### 1 [id number], [id number] ####[facility] (DEFAULT)[address] [place] [address] 67607 Ketones Ql (U) Negative [facility] Comment on above: Performed By: #### 1 [id number], [id number] ####[facility] (DEFAULT)[address] [place] [address] 37630 Micro? Not Indicated Invalid Interpretation Code [facility] Comment on above: Result Comment: Resu lt created by rule GL_MAGR_ADD_UA_MICRO Result created by rule GL_MAGR_ADD_UA_MICRO Performed By: #### 1 [id number], [id number] ####[facility] (DEFAULT)[address] [place] [address] UA Bilirubin Negative [facility] Comment on above: Performed By: #### 1 [id number], [id number] ####[facility] (DEFAULT)[address] [place] [address] 78230 UA Blood Negative Normal [facility] Comment on above: Performed By: #### 1 [id number], [id number] ####[facility] (DEFAULT)[address] [place] [address] 41736 UA Clarity CLEAR Normal CLEAR [facility] Comment on above: Performed By: #### 1 [id number], [id number] ####[facility] (DEFAULT)[address] [place] [address] 71917 UA Leuk Est Negative Normal NEGATIVE [facility] Comment on above: Performed By: #### 1 [id number], [id number] ####[facility] (DEFAULT)[address] [place] [address] 50532 UA Nitrite Negative Normal NEGATIVE [facility] Comment on above: Performed By: #### 1 [id number], [id number] ####[facility] (DEFAULT)[address] [place] [address] UA pH 7.0 Normal 5-8 [facility] Comment on above: Performed By: #### 1 [id number], [id number] ####[facility] (DEFAULT)[address] [place] [address] UA Protein Negative Normal NEGATIVE [facility] Comment on above: Performed By: #### 1 [id number], [id number] ####[facility] (DEFAULT)[address] [place] [address] UA Spec Grav <=1.005 Normal 1.001-1.035 [facility] Comment on above: Performed By: #### 1 [id number], [id number] ####[facility] (DEFAULT)[address] [place] [address] 41128 UA Urobilinogen 0.2 mg/dL Normal 0.2-1.0 [facility] Comment on above: Performed By: #### 1 [id number], [id number] ####[facility] (DEFAULT)[address] [place] [address] Urine Source Clean Catch Normal [facility] Comment on above: Performed By: #### 1 [id number], [id number] ####[facility] (DEFAULT)[address] [place] [address] CBC AND AUTO DIFFon 12-24-20 24 ABSOLUTE BASOPHIL 0.1 X10E9/L Normal 0.0-0.2 [facility] Comment on above: Performed By: #### 2 106-3 #### [facility] ([id number]) [address] [place] [address] 29992 ABSOLUTE NEUTROPHIL 4.9 X10E9/L Normal 1.5-6.6 [facility] Comment on above: Performed By: #### 2 106-3 #### [facility] ([id number]) [address] [place] [address] 55448 Basophils/100 WBC (Bld) 0.9 % Normal [facility] Comment on above: Performed By: #### 2 106-3 #### [facility] ([id number]) [address] [place] [address] 26758 Eosinophils (Bld) [#/Vol] 0.1 10*3/uL Normal 0.0-0.4 [facility] Comment on above: Performed By: #### 2 106-3 #### [facility] ([id number]) [address] [place] [address] 74302 Eosinophils/100 WBC (Bld) 0.7 % Normal [facility] Comment on above: Performed By: #### 2 106-3 #### [facility] ([id number]) [address] [place] [address] 06921 Erythrocyte distribution width (RBC) [Ratio] 19.6 % High 11.5-15.0 [facility] Comment on above: Performed By: #### 2 106-3 #### [facility] ([id number]) [address] [place] [address] 66286 Hematocrit (Bld) [Volume fraction] 35.6 % Normal 35-47 [facility] Comment on above: Performed By: #### 2 106-3 #### [facility] ([id number]) [address] [place] [address] 14689 Hemoglobin (Bld) [Mass/Vol] 11.2 g/dL Low 11.7-15.5 [facility] Comment on above: Performed By: #### 2 106-3 #### [facility] ([id number]) [address] [place] [address] 12146 Lymphocytes (Bld) [#/Vol] 2.5 10*3/uL Normal 1.0-3.5 [facility] Comment on above: Performed By: #### 2 106-3 #### [facility] ([id number]) [address] [place] [address] 15298 Lymphocytes/100 WBC (Bld) 31.5 % Normal [facility] Comment on above: Performed By: #### 2 106-3 #### [facility] ([id number]) [address] [place] [address] 98690 MCH (RBC) [Entitic mass] 22.7 pg Low 27-34 [facility] Comment on above: Performed By: #### 2 106-3 #### [facility] ([id number]) [address] [place] [address] 89819 MCHC (RBC) [Mass/Vol] 31.4 g/dL Low 32-36 [facility] Comment on above: Performed By: #### 2 106-3 #### [facility] ([id number]) [address] [place] [address] 88259 MCV (RBC) [Entitic vol] 72 fL Low 80-100 P [facility] Comment on above: Performed By: #### 2 106-3 #### [facility] ([id number]) [address] [place] [address] 46774 Monocytes (Bld) [#/Vol] 0.4 10*3/uL Normal 0-0.9 [facility] Comment on above: Performed By: #### 2 106-3 #### [facility] ([id number]) [address] [place] [address] 46912 Monocytes/100 WBC (Bld) 5.4 % Normal [facility] Comment on above: Performed By: #### 2 106-3 #### [facility] ([id number]) [address] [place] [address] 85711 Neutrophils/100 WBC (Bld) 61.5 % Normal [facility] Comment on above: Performed By: #### 2 106-3 #### [facility] ([id number]) [address] [place] [address] 10754 Platelet mean volume (Bld) [Entitic vol] 7.7 fL Normal 7-12 [facility] Comment on above: Performed By: #### 2 106-3 #### [facility] ([id number]) [address] [place] [address] 55261 Platelets (Bld) [#/Vol] 451 10*3/uL High 150-450 [facility] Comment on above: Performed By: #### 2 106-3 #### [facility] ([id number]) [address] [place] [address] 33363 RBC COUNT 4.93 X10E12/L Normal 3.80-5.20 [facility] Comment on above: Performed By: #### 2 106-3 #### [facility] ([id number]) [address] [place] [address] 49437 WBC (Bld) [#/Vol] 8.0 10*3/uL Normal 4.0-11.0 [facility] Comment on above: Performed By: #### 2 106-3 #### [facility] ([id number]) [address] [place] [address] 09807 COMPREHENSIVE METABOLIC PANE [facility] 06-05-2024 Albumin [Mass/Vol] 4.6 g/dL Normal 3.2-5.3 [facility] Comment on above: Performed By: #### 2 106-3 #### [facility] ([id number]) [address] [place] [address] 46331 ALP [Catalytic activity/Vol] 67 U/L Normal 39-130 [facility] Comment on above: Performed By: #### 2 106-3 #### [facility] ([id number]) [address] [place] [address] 10288 ALT [Catalytic activity/Vol] 14 U/L Normal 0-31 [facility] Comment on above: Performed By: #### 2 106-3 #### [facility] ([id number]) [address] [place] [address] 36076 Anion gap [Moles/Vol] 13 mmol/L Normal 5-15 [facility] Comment on above: Performed By: #### 2 106-3 #### [facility] ([id number]) [address] [place] [address] 81971 AST [Catalytic activity/Vol] 19 U/L Normal 0-41 [facility] Comment on above: Performed By: #### 2 106-3 #### [facility] ([id number]) [address] [place] [address] 19082 Bilirubin [Mass/Vol] 0.3 mg/dL Normal 0.3-1.2 [facility] Comment on above: Performed By: #### 2 106-3 #### [facility] ([id number]) [address] [place] [address] 88328 Calcium [Mass/Vol] 10.0 mg/dL Normal 8.5-10.5 [facility] Comment on above: Performed By: #### 2 106-3 #### [facility] ([id number]) [address] [place] [address] 34648 Chloride [Moles/Vol] 105 mmol/L Normal 98-109 [facility] Comment on above: Performed By: #### 2 106-3 #### [facility] ([id number]) [address] [place] [address] 67646 CO2 [Moles/Vol] 21 mmol/L Low 22-32 [facility] Comment on above: Performed By: #### 2 106-3 #### [facility] ([id number]) [address] [place] [address] 98315 Creatinine [Mass/Vol] 0.97 mg/dL Normal 0.40-1.00 [facility] Comment on above: Result Comment: METH OD TRACEABLE TO IDMS STANDARD Performed By: #### 2 106-3 #### [facility] ([id number]) [address] [place] [address] 17526 GFR/1.73 sq M.predicted among non-blacks MDRD (S/P/Bld) [Vol rate/Area] 77 mL/min/{1.73_m2} Normal >59 [facility] Comment on above: Result Comment: Reported eGFR is based on the CKD-EPI 2020 equation that does not use a race coefficient. Performed By: #### 2 106-3 #### [facility] ([id number]) [address] [place] [address] 27425 Glucose [Mass/Vol] 98 mg/dL Normal 65-99 [facility] Comment on above: Performed By: #### 2 106-3 #### [facility] ([id number]) [address] [place] [address] 31720 Potassium [Moles/Vol] 3.7 mmol/L Normal 3.5-5.0 [facility] Comment on above: Performed By: #### 2 106-3 #### [facility] ([id number]) [address] [place] [address] 97789 Protein [Mass/Vol] 8.3 g/dL High 6.0-8.0 [facility] Comment on above: Performed By: #### 2 106-3 #### [facility] ([id number]) [address] [place] [address] 67327 Sodium [Moles/Vol] 139 mmol/L Normal 134-146 [facility] Comment on above: Performed By: #### 2 106-3 #### [facility] ([id number]) [address] [place] [address] 41132 Urea nitrogen [Mass/Vol] 11 mg/dL Normal 5-23 [facility] Comment on above: Performed By: #### 2 106-3 #### [facility] ([id number]) [address] [place] [address] ABDOMEN AND PELVIS W CONT on [...] Lang MD on 06/05/2024 8:30 PM Normal [facility] HCG ( test) Ql (U)o n 06-05-2024 Beta HCG ( test) Ql (U) Negative Normal NEG [facility] Comment on above: Performed By: #### 2 106-3 #### [facility] ([id number]) [address] [place] [address] 63420 LIPASEon 06-05-2024 Lipase [Catalytic activity/Vol] 44 U/L High 17-40 [facility] Comment on above: Performed By: #### 2 106-3 #### [facility] ([id number]) [address] [place] [address] 45802 URN MACROSCOPIC NURon 2023 BILIRUBIN AUDREY Negative Normal NEG [facility] Comment on above: Performed By: #### 2 106-3 #### [facility] ([id number]) [address] [place] [address] 67490 BLOOD/HGB AUDREY Negative Normal NEG [facility] Comment on above: Performed By: #### 2 106-3 #### [facility] ([id number]) [address] [place] [address] [place] [address] GLUCOSE AUDREY Negative Normal NEG [facility] Comment on above: Performed By: #### 2 106-3 #### [facility] ([id number]) [address] [place] [address] [place] [address] KETONES AUDREY Negative Normal NEG [facility] Comment on above: Performed By: #### 2 106-3 #### [facility] ([id number]) [address] [place] [address] 45650 LEUKOCYTE ESTERASE AUDREY Negative Normal NEG [facility] Comment on above: Performed By: #### 2 106-3 #### [facility] ([id number]) [address] [place] [address] 21256 NITRITE AUDREY Negative Normal NEG [facility] Comment on above: Performed By: #### 2 106-3 #### [facility] ([id number]) [address] [place] [address] 84443 PH AUDREY 7.0 Normal 5.0-8.5 [facility] Comment on above: Performed By: #### 2 106-3 #### [facility] ([id number]) [address] [place] [address] 29297 PROTEIN AUDREY Negative Normal NEG [facility] Comment on above: Performed By: #### 2 106-3 #### [facility] ([id number]) [address] [place] [address] 54535 SPECIFIC GRAVITY AUDREY 1.015 Normal 1.003-1.035 [facility] Comment on above: Performed By: #### 2 106-3 #### [facility] ([id number]) [address] [place] [address] 67809 UROBILINOGEN AUDREY 1.0 eu/dL Normal <1.1 [facility] Comment on above: Performed By: #### 2 106-3 #### [facility] ([id number]) [address] [place] [address] 27724 CBC with Diffon 05-28-2024 Morphology Edson (Bld) [Interp] SLIGHT Normal [facility] Comment on above: Result Comment: MICR OCYTOSIS Performed By: #### C P, CDP #### [facility] [address] [place], [place] [id number] Vacuum Metalizer Operator: Jennifer Freire MD Urinalysis, Routineon 2023 Bilirubin, SemiQt,Ur Negative Normal NEG [facility] Comment on above: Performed By: #### U MARCELA Mireles #### [facility] [address] [place], [place] [id number] Vacuum Metalizer Operator: Jennifer Freire MD Blood, Urine TRACE Abnormal NEG [facility] Comment on above: Performed By: #### U A, UMICAO #### [facility] [address] [place] [address] Vacuum Metalizer Operator: Jennifer Freire MD Clarity (U) Clear Normal CLEAR [facility] Comment on above: Performed By: #### U A, UMICAO #### [facility] [address] [place] [address] Vacuum Metalizer Operator: Jennifer Freire MD Color (U) Yellow Normal YEL [facility] Comment on above: Performed By: #### U A, UMICAO #### [facility] [address] [place] [address] Vacuum Metalizer Operator: Jennifer Freire MD Comment Normal [facility] Comment on above: Performed By: #### U A, UMICAO #### [facility] [address] [place] [address] Vacuum Metalizer Operator: Jennifer Freire MD Glucose Ql (U) Negative Normal NEG [facility] Comment on above: Performed By: #### U A, UMICAO #### [facility] [address] [place] [address] Vacuum Metalizer Operator: Jennifer Freire MD Ketones Ql (U) Negative Normal NEG [facility] Comment on above: Performed By: #### U A, UMICAO #### [facility] [address] [place] [address] Vacuum Metalizer Operator: Jennifer Freire MD Leukocyte esterase Test strip Ql (U) Negative Normal NEG [facility] Comment on above: Performed By: #### U A, UMICAO #### [facility] [address] [place] [address] Vacuum Metalizer Operator: Jennifer Freire MD Nitrite,Ur Negative Normal NEG [facility] Comment on above: Performed By: #### U A, UMICAO #### [facility] [address] [place] [address] Vacuum Metalizer Operator: Jennifer Freire MD PH,Ur 7.0 Normal 5.0-8.0 [facility] Comment on above: Performed By: #### U A, UMICAO #### [facility] [address] [place] [address] Vacuum Metalizer Operator: Jennifer Freire MD Protein Ql (U) Negative Normal NEG [facility] Comment on above: Performed By: #### U A, UMICAO #### [facility] [address] [place] [address] Vacuum Metalizer Operator: Jennifer Freire MD Spec. [place],Ur 1.010 Normal 1.005-1.030 [facility] Comment on above: Performed By: #### U A, UMICAO #### [facility] [address] [place] [address] Vacuum Metalizer Operator: Jennifer Freire MD Urobilinogen,Ur Normal Normal 0.0-1.0 [facility] Comment on above: Performed By: #### U A, UMICAO #### [facility] [address] [place] [address] Vacuum Metalizer Operator: Jennifer Freire MD Urinalysis,Microon 4 ----- Normal [facility] Comment on above: Performed By: #### U A, UMICAO #### [facility] [address] [place] [address] Vacuum Metalizer Operator: Jennifer Freire MD Urine RBC's 2 TO 5 Normal 0-2 [facility] Comment on above: Performed By: #### U A, UMICAO #### [facility] [address] [place] [address] Vacuum Metalizer Operator: Jennifer Freire MD Urine WBC's None Seen Normal 0 [facility] Comment on above: Performed By: #### U AMARCELA #### [facility] [address] [place] [id number] Vacuum Metalizer Operator: Jennifer Freire MD CBC with Diffon 05-27-2024 Abs. Basophil 0.03 k/uL Normal 0.00-0.20 [facility] Comment on above: Performed By: #### C P, CDP #### [facility] [address] [place] [id number] Vacuum Metalizer Operator: Jennifer Freire MD Abs.Imm.Granulocyte 0.01 k/uL Normal 0.00-0.30 [facility] Comment on above: Performed By: #### C P, CDP #### [facility] [address] [place] [address] Vacuum Metalizer Operator: Jennifer Freire MD Abs.Neutrophil (Seg) 4.33 k/uL Normal 2.5-7.0 [facility] Comment on above: Performed By: #### C P, CDP #### [facility] [address] [place] [id number] Vacuum Metalizer Operator: Jennifer Freire MD Basophils/100 WBC (Bld) 0 % Normal 0-2 [facility] Comment on above: Performed By: #### C P, CDP #### [facility] [address] [place] [id number] Vacuum Metalizer Operator: Jennifer Freire MD Eosinophils (Bld) [#/Vol] 0.08 10*3/uL Normal 0.00-0.40 [facility] Comment on above: Performed By: #### C P, CDP #### [facility] [address] [place] [id number] Vacuum Metalizer Operator: Jennifer Freire MD Eosinophils/100 WBC (Bld) 1 % Normal 0-5 [facility] Comment on above: Performed By: #### C P, CDP #### [facility] [address] [place] [address] Vacuum Metalizer Operator: Jennifer Freire MD Erythrocyte distribution width (RBC) [Ratio] 17.2 % High 12.1-15.2 [facility] Comment on above: Performed By: #### C P, CDP #### [facility] [address] [place] [address] Vacuum Metalizer Operator: Jennifer Freire MD Hematocrit (Bld) [Volume fraction] 36.4 % Normal 36.0-46.0 [facility] Comment on above: Performed By: #### C P, CDP #### [facility] [address] [place] [address] Vacuum Metalizer Operator: Jennifer Freire MD Hemoglobin (Bld) [Mass/Vol] 11.4 g/dL Low 12.0-16.0 [facility] Comment on above: Performed By: #### C P, CDP #### [facility] [address] [place] [address] Vacuum Metalizer Operator: Jennifer Freire MD Immature granulocytes/100 WBC (Bld) 0 % Normal 0-5 [facility] Comment on above: Performed By: #### C P, CDP #### [facility] [address] [place] [address] Vacuum Metalizer Operator: Jennifer Freire MD Lymphocytes (Bld) [#/Vol] 3.24 10*3/uL Normal 1.00-4.80 [facility] Comment on above: Performed By: #### C P, CDP #### [facility] [address] [place] [address] Vacuum Metalizer Operator: Jennifer Freire MD Lymphocytes/100 WBC (Bld) 40 % Normal 15-40 [facility] Comment on above: Performed By: #### C P, CDP #### [facility] [address] [place] [address] Vacuum Metalizer Operator: Jennifer Freire MD MCH (RBC) [Entitic mass] 22.6 pg Low 26.0-34.0 [facility] Comment on above: Performed By: #### C P, CDP #### [facility] [address] [place] [address] Vacuum Metalizer Operator: Jennifer Freire MD MCHC (RBC) [Mass/Vol] 31.3 g/dL Normal 31.0-37.0 [facility] Comment on above: Performed By: #### C P, CDP #### [facility] [address] [place] [address] Vacuum Metalizer Operator: Jennifer Freire MD MCV (RBC) [Entitic vol] 72.2 fL Low 80.0-100.0 [facility] Comment on above: Performed By: #### C P, CDP #### [facility] [address] [place] [address] Vacuum Metalizer Operator: Jennifer Freire MD Monocytes (Bld) [#/Vol] 0.51 10*3/uL Normal 0.00-1.00 [facility] Comment on above: Performed By: #### C P, CDP #### [facility] [address] [place] [address] Vacuum Metalizer Operator: Jennifer Freire MD Monocytes/100 WBC (Bld) 6 % Normal 4-8 [facility] Comment on above: Performed By: #### C P, CDP #### [facility] [address] [place] [address] Vacuum Metalizer Operator: Jennifer Freire MD Neutrophil (Seg) 53 % Normal 47-75 [facility] Comment on above: Performed By: #### C P, CDP #### [facility] [address] [place] [address] Vacuum Metalizer Operator: Jennifer Freire MD Platelet mean volume (Bld) [Entitic vol] 9.3 fL Normal 6.0-12.0 [facility] Comment on above: Performed By: #### C P, CDP #### [facility] [address] [place] [address] Vacuum Metalizer Operator: Jennifer Freire MD Platelets (Bld) [#/Vol] 583 10*3/uL High 140-450 [facility] Comment on above: Performed By: #### C P, CDP #### [facility] [address] [place], [place] [id number] Vacuum Metalizer Operator: Jennifer Freire MD RBC (Bld) [#/Vol] 5.04 10*6/uL Normal 4.00-5.20 [facility] Comment on above: Performed By: #### C P, CDP #### [facility] [address] [place] [address] Vacuum Metalizer Operator: Jennifer Freire MD WBC (Bld) [#/Vol] 8.2 10*3/uL Normal 3.5-11.0 [facility] Comment on above: Performed By: #### C P, CDP #### [facility] [address] [place] [address] Vacuum Metalizer Operator: Jennifer Freire MD Comp Metabolic Profon 2023 Albumin [Mass/Vol] 4.7 g/dL Normal 3.5-5.2 [facility] Comment on above: Performed By: #### C P, CDP #### [facility] [address] [place] [address] Vacuum Metalizer Operator: Jennifer Freire MD Alkaline Phos 92 U/L Normal 35-104 [facility] Comment on above: Performed By: #### C P, CDP #### [facility] [address] [place] [address] Vacuum Metalizer Operator: Jennifer Freire MD ALT [Catalytic activity/Vol] 16 U/L Normal 5-33 [facility] Comment on above: Performed By: #### C P, CDP #### [facility] [address] [place] [address] Vacuum Metalizer Operator: Jennifer Freire MD Anion gap [Moles/Vol] 14 mmol/L Normal 9-17 [facility] Comment on above: Performed By: #### C P, CDP #### [facility] [address] [place], [place] [id number] Vacuum Metalizer Operator: Jennifer Freire MD AST [Catalytic activity/Vol] 17 U/L Normal <32 [facility] Comment on above: Performed By: #### C P, CDP #### [facility] [address] [place] [address] Vacuum Metalizer Operator: Jennifer Freire MD Bilirubin [Mass/Vol] 0.2 mg/dL Low 0.3-1.2 [facility] Comment on above: Performed By: #### C P, CDP #### [facility] [address] [place] [address] Vacuum Metalizer Operator: Jennifer Freire MD BUN/CRE Ratio 9 Normal 9-20 [facility] Comment on above: Performed By: #### C P, CDP #### [facility] [address] [place] [address] Vacuum Metalizer Operator: Jennifer Freire MD Calcium [Mass/Vol] 9.9 mg/dL Normal 8.6-10.4 [facility] Comment on above: Performed By: #### C P, CDP #### [facility] [address] [place], [place] [id number] Vacuum Metalizer Operator: Jennifer Freire MD Chloride [Moles/Vol] 106 mmol/L Normal 98-107 [facility] Comment on above: Performed By: #### C P, CDP #### [facility] [address] [place], [place] [address] Vacuum Metalizer Operator: Jennifer Freire MD CO2 [Moles/Vol] 22 mmol/L Normal 20-31 [facility] Comment on above: Performed By: #### C P, CDP #### [facility] [address] [place] [address] Vacuum Metalizer Operator: Jennifer Freire MD Creatinine [Mass/Vol] 0.8 mg/dL Normal 0.5-0.9 [facility] Comment on above: Performed By: #### C P, CDP #### [facility] [address] [place], [place] [id number] Vacuum Metalizer Operator: Jennifer Freire MD GFR/1.73 sq M.predicted [...] Performed By: #### C P, CDP #### [facility] [address] [place] [address] Vacuum Metalizer Operator: Jennifer Freire MD Glucose [Mass/Vol] 93 mg/dL Normal 70-99 [facility] Comment on above: Performed By: #### C P, CDP #### [facility] [address] [place] [address] Vacuum Metalizer Operator: Jennifer Freire MD Potassium [Moles/Vol] 3.7 mmol/L Normal 3.7-5.3 [facility] Comment on above: Performed By: #### C P, CDP #### [facility] [address] [place], [place] [address]127[address] Vacuum Metalizer Operator: Jennifer Freire MD Protein [Mass/Vol] 8.3 g/dL Normal 6.4-8.3 [facility] Comment on above: Performed By: #### C P, CDP #### [facility] [address] [place] [address] Vacuum Metalizer Operator: Jennifer Freire MD Sodium [Moles/Vol] 142 mmol/L Normal 135-144 [facility] Comment on above: Performed By: #### C P, CDP #### [facility] [address] [place] [address] Vacuum Metalizer Operator: Jennifer Freire MD Urea nitrogen [Mass/Vol] 7 mg/dL Normal 6-20 [facility] Comment on above: Performed By: #### C P, CDP #### [facility] [address] [place] [address] Vacuum Metalizer Operator: Jennifer Freire MD Surgical Pathology [facility] Surgical Pathology Normal [facility] Comment on above: Result Comment: [facility] [employer] [address] [place] [address] Surgical Pathology Consultation Patient Name:ANTONIA NOYOLA:1985 (Age: 39)Gender:FTaken:04/06/2024eported:04/17/2024hysician(s):Adiel Aparicio M.D. ([phone])Copy To: Rec. #:[id number]: #[id number] Final Pathologic Diagnosis Uterus, cervix, bilateral fallopian tubes, and bilateral ovaries, TAHBSO: Cervix, negative for dysplasia Inactive endometrium with benign endometrial polyp Bilateral ovaries with endometriosis/endometrioma Unremarkable fallopian tubes Report Electronically Signed Out justenk/04/17/2024Evelin Joshi MD Interpretation performed at [facility], [address] [place] [address], License number: [id number]. Clinical History Endometriosis/ pelvic pain. Gross Description [...] entirely filled with red-brown, hemorrhagic turbid fluid Finish Repairer sections are submitted in cassettes A-L, as: A anterior cervix B posterior cervix C anterior uterine wall D anterior endomyometrium E posterior uterine wall with whirled nodule F posterior endomyometrium G right fallopian tube with entire fimbriated end H-I right ovary J left fallopian tube with entire fimbriated end K-L left ovary (12, ss, [id number], m6) MW mxw/04/06/2024WAK Specimen(s) Received Uterus, cervix, bilateral fallopian tubes, and bilateral ovaries Fee Codes(s): 1; 73263 CBC AND AUTO DIFFon 10-24-20 24 ABSOLUTE BASOPHIL 0.1 X10E9/L Normal 0.0-0.2 [facility] Comment on above: Performed By: #### N UM #### [facility] ([id number]) [address] [place] [address] ABSOLUTE NEUTROPHIL 4.5 X10E9/L Normal 1.5-6.6 [facility] Comment on above: Performed By: #### N UM #### [facility] ([id number]) [address] [place] [address] Basophils/100 WBC (Bld) 1.1 % Normal [facility] Comment on above: Performed By: #### N UM #### [facility] ([id number]) [address] [place] [address] Eosinophils (Bld) [#/Vol] 0.0 10*3/uL Normal 0.0-0.4 [facility] Comment on above: Performed By: #### N UM #### [facility] ([id number]) [address] [place] [address] 60969 Eosinophils/100 WBC (Bld) 0.5 % Normal [facility] Comment on above: Performed By: #### N UM #### [facility] ([id number]) [address] [place] [address] 525[address] Erythrocyte distribution width (RBC) [Ratio] 18.3 % High 11.5-15.0 [facility] Comment on above: Performed By: #### N UM #### [facility] ([id number]) [address] [place] [address] 699[address] Hematocrit (Bld) [Volume fraction] 32.1 % Low 35-47 [facility] Comment on above: Performed By: #### N UM #### [facility] ([id number]) [address] [place] [address] 969[address] Hemoglobin (Bld) [Mass/Vol] 10.2 g/dL Low 11.7-15.5 [facility] Comment on above: Performed By: #### N UM #### [facility] ([id number]) [address] [place] [address] 38072 Lymphocytes (Bld) [#/Vol] 2.5 10*3/uL Normal 1.0-3.5 [facility] Comment on above: Performed By: #### N UM #### [facility] ([id number]) [address] [place] [address] 34000 Lymphocytes/100 WBC (Bld) 33.1 % Normal [facility] Comment on above: Performed By: #### N UM #### [facility] ([id number]) [address] [place] [address] 08783 MCH (RBC) [Entitic mass] 22.6 pg Low 27-34 [facility] Comment on above: Performed By: #### N UM #### [facility] ([id number]) [address] [place] [address] 62948 MCHC (RBC) [Mass/Vol] 31.7 g/dL Low 32-36 [facility] Comment on above: Performed By: #### N UM #### [facility] ([id number]) [address] [place] [address] 69421 MCV (RBC) [Entitic vol] 71 fL Low 80-100 [facility] Comment on above: Performed By: #### N UM #### [facility] ([id number]) [address] [place] [address] 81998 Monocytes (Bld) [#/Vol] 0.5 10*3/uL Normal 0-0.9 [facility] Comment on above: Performed By: #### N UM #### [facility] ([id number]) [address] [place] [address] 05255 Monocytes/100 WBC (Bld) 6.2 % Normal [facility] Comment on above: Performed By: #### N UM #### [facility] ([id number]) [address] [place] [address] 49246 Neutrophils/100 WBC (Bld) 59.1 % Normal [facility] Comment on above: Performed By: #### N UM #### [facility] ([id number]) [address] [place] [address] 74377 Platelet mean volume (Bld) [Entitic vol] 7.6 fL Normal 7-12 [facility] Comment on above: Performed By: #### N UM #### [facility] ([id number]) [address] [place] [address] 82301 Platelets (Bld) [#/Vol] 582 10*3/uL High 150-450 [facility] Comment on above: Performed By: #### N UM #### [facility] ([id number]) [address] [place] [address] 87344 RBC COUNT 4.51 X10E12/L Normal 3.80-5.20 [facility] Comment on above: Performed By: #### N UM #### [facility] ([id number]) [address] [place] [address] 04083 WBC (Bld) [#/Vol] 7.7 10*3/uL Normal 4.0-11.0 [facility] Comment on above: Performed By: #### N UM #### [facility] ([id number]) [address] [place] [address] [place] [address] COMPREHENSIVE METABOLIC PANE Van 04-05-2024 Albumin [Mass/Vol] 4.3 g/dL Normal 3.2-5.3 [facility] Comment on above: Performed By: #### N UM #### [facility] ([id number]) [address] [place] [address] [place] [address] ALP [Catalytic activity/Vol] 65 U/L Normal 39-130 [facility] Comment on above: Performed By: #### N UM #### [facility] ([id number]) [address] [place] [address] 25800 ALT [Catalytic activity/Vol] 20 U/L Normal 0-31 [facility] Comment on above: Performed By: #### N UM #### [facility] ([id number]) [address] [place] [address] 75555 Anion gap [Moles/Vol] 8 mmol/L Normal 5-15 [facility] Comment on above: Performed By: #### N UM #### [facility] ([id number]) [address] [place] [address] 11277 AST [Catalytic activity/Vol] 24 U/L Normal 0-41 [facility] Comment on above: Performed By: #### N UM #### [facility] ([id number]) [address] [place] [address] [place] [address] Bilirubin [Mass/Vol] 0.8 mg/dL Normal 0.3-1.2 [facility] Comment on above: Performed By: #### N UM #### [facility] ([id number]) [address] [place] [address] 32141 Calcium [Mass/Vol] 8.9 mg/dL Normal 8.5-10.5 [facility] Comment on above: Performed By: #### N UM #### [facility] ([id number]) [address] [place] [address] 42607 Chloride [Moles/Vol] 104 mmol/L Normal 98-109 [facility] Comment on above: Performed By: #### N UM #### [facility] ([id number]) [address] [place] [address] 51376 CO2 [Moles/Vol] 22 mmol/L Normal 22-32 [facility] Comment on above: Performed By: #### N UM #### [facility] ([id number]) [address] [place] [address] 08883 Creatinine [Mass/Vol] 0.62 mg/dL Normal 0.40-1.00 [facility] Comment on above: Result Comment: METH OD TRACEABLE TO IDMS STANDARD Performed By: #### N UM #### [facility] ([id number]) [address] [place] [address] 22730 eGFR (CKD-EPI) NON-RACE DEPENDENT >90 Normal >59 [facility] Comment on above: Result Comment: Reported eGFR is based on the CKD-EPI 1 equation that does not use a race coefficient. Performed By: #### N UM #### [facility] ([id number]) [address] [place] [address] 89753 Glucose [Mass/Vol] 107 mg/dL High 65-99 [facility] Comment on above: Performed By: #### N UM #### [facility] ([id number]) [address] [place] [address] 87248 Potassium [Moles/Vol] 3.7 mmol/L Normal 3.5-5.0 [facility] Comment on above: Performed By: #### N UM #### [facility] ([id number]) [address] [place] [address] 92810 Protein [Mass/Vol] 8.0 g/dL Normal 6.0-8.0 [facility] Comment on above: Performed By: #### N UM #### [facility] ([id number]) [address] [place] [address] 79186 Sodium [Moles/Vol] 134 mmol/L Normal 134-146 [facility] Comment on above: Performed By: #### N UM #### [facility] ([id number]) [address] [place] [address] 26841 Urea nitrogen [Mass/Vol] 8 mg/dL Normal 5-23 [facility] Comment on above: Performed By: #### N UM #### [facility] ([id number]) [address] [place] [address] ABDOMEN AND PELVIS WO CON Ton [...] Atwood MD on 04/05/2024 3:57 PM Normal [facility] HCG ( test) Ql (U)o n 04-05-2024 Beta HCG ( test) Ql (U) Negative Normal NEG [facility] Comment on above: Performed By: #### N UM #### [facility] ([id number]) [address] [place] [address] 03666 LIPASEon 04-05-2024 Lipase [Catalytic activity/Vol] 30 U/L Normal 17-40 [facility] Comment on above: Performed By: #### N UM #### [facility] ([id number]) [address] [place] [address] 01427 Lactate (P arely) [Moles/Vol]o n 04-05-2024 LACTATE W/REFLEX 1.7 mmol/L Normal 0.4-2.0 [facility] Comment on above: Result Comment: Result did not trigger repeat Lactate, re-order if needed. Performed By: #### N UM #### [facility] ([id number]) [address] [place] [address] 27068 URN MACROSCOPIC NURon 2023 BILIRUBIN AUDREY Negative Normal NEG [facility] Comment on above: Performed By: #### N UM #### [facility] ([id number]) [address] [place] [address] 00202 BLOOD/HGB AUDREY Negative Normal NEG [facility] Comment on above: Performed By: #### N UM #### [facility] ([id number]) [address] [place] [address] 06928 GLUCOSE AUDREY Negative Normal NEG [facility] Comment on above: Performed By: #### N UM #### [facility] ([id number]) [address] [place] [address] 33611 KETONES AUDREY Negative Normal NEG [facility] Comment on above: Performed By: #### N UM #### [facility] ([id number]) [address] [place] [address] [place] [address] LEUKOCYTE ESTERASE AUDREY Negative Normal NEG [facility] Comment on above: Performed By: #### N UM #### [facility] ([id number]) [address] [place] [address] [place] [address] NITRITE AUDREY Negative Normal NEG [facility] Comment on above: Performed By: #### N UM #### [facility] ([id number]) [address] [place] [address] PH AUDREY 7.0 Normal 5.0-8.5 [facility] Comment on above: Performed By: #### N UM #### [facility] ([id number]) [address] [place] [address] 93953 PROTEIN AUDREY Negative Normal NEG [facility] Comment on above: Performed By: #### N UM #### [facility] ([id number]) [address] [place] [address] 16143 SPECIFIC GRAVITY AUDREY 1.010 Normal 1.003-1.035 [facility] Comment on above: Performed By: #### N UM #### [facility] ([id number]) [address] [place] [address] [address] UROBILINOGEN AUDREY 0.2 eu/dL Normal <1.1 [facility] Comment on above: Performed By: #### N UM #### [facility] ([id number]) [address] [place] [address] [place] PELVIC WITH TRANSVAGINAL AND DUPLEXon 04-05-2024 [...] Martinez MD on 04/05/2024 3:03 PM Normal [facility] CBC AND AUTO DIFFon 03-28-20 ABSOLUTE BASOPHIL 0.1 X10E9/L Normal 0.0-0.2 [facility] Comment on above: Performed By: #### C BCA, CMP #### [facility] ([id number]) [address] [place] [address] ABSOLUTE NEUTROPHIL 2.4 X10E9/L Normal 1.5-6.6 [facility] Comment on above: Performed By: #### C BCA, CMP #### [facility] ([id number]) [address] [place] [address] Basophils/100 WBC (Bld) 1.1 % Normal [facility] Comment on above: Performed By: #### C BCA, CMP #### [facility] ([id number]) [address], [address] [place] [address] Eosinophils (Bld) [#/Vol] 0.1 10*3/uL Normal 0.0-0.4 [facility] Comment on above: Performed By: #### C BCA, CMP #### [facility] ([id number]) [address] [place] [address] Eosinophils/100 WBC (Bld) 2.7 % Normal [facility] Comment on above: Performed By: #### C BCA, CMP #### [facility] ([id number]) [address] [place] [address] Erythrocyte distribution width (RBC) [Ratio] 18.7 % High 11.5-15.0 [facility] Comment on above: Performed By: #### C HEATH, CMP #### [facility] ([id number]) [address] [place] [address] Hematocrit (Bld) [Volume fraction] 31.3 % Low 35-47 [facility] Comment on above: Performed By: #### C BCA, CMP #### [facility] ([id number]) [address] [place] [address] Hemoglobin (Bld) [Mass/Vol] 9.9 g/dL Low 11.7-15.5 [facility] Comment on above: Performed By: #### C BCA, CMP #### [facility] ([id number]) [address] [place] [address] Lymphocytes (Bld) [#/Vol] 2.2 10*3/uL Normal 1.0-3.5 [facility] Comment on above: Performed By: #### C BCA, CMP #### [facility] ([id number]) [address] [place] [address] Lymphocytes/100 WBC (Bld) 42.4 % Normal [facility] Comment on above: Performed By: #### C BCA, CMP #### [facility] ([id number]) [address] [place] [address] MCH (RBC) [Entitic mass] 23.2 pg Low 27-34 [facility] Comment on above: Performed By: #### C BCA, CMP #### [facility] ([id number]) [address] [place] [address] MCHC (RBC) [Mass/Vol] 31.7 g/dL Low 32-36 [facility] Comment on above: Performed By: #### C BCA, CMP #### [facility] ([id number]) [address] [place] [address] MCV (RBC) [Entitic vol] 73 fL Low 80-100 [facility] Comment on above: Performed By: #### C BCA, CMP #### [facility] ([id number]) [address] [place] [address] Monocytes (Bld) [#/Vol] 0.4 10*3/uL Normal 0-0.9 [facility] Comment on above: Performed By: #### C HEATH, CMP #### [facility] ([id number]) [address] [place] [address] Monocytes/100 WBC (Bld) 7.9 % Normal [facility] Comment on above: Performed By: #### C HEATH, CMP #### [facility] ([id number]) [address] [place] [address] Neutrophils/100 WBC (Bld) 45.9 % Normal [facility] Comment on above: Performed By: #### C HEATH, CMP #### [facility] ([id number]) [address] [place] [address] Platelet mean volume (Bld) [Entitic vol] 8.0 fL Normal 7-12 [facility] Comment on above: Performed By: #### C HEATH, CMP #### [facility] ([id number]) [address] [place] [address] Platelets (Bld) [#/Vol] 457 10*3/uL High 150-450 [facility] Comment on above: Performed By: #### C HEATH, CMP #### [facility] ([id number]) [address] [place] [address] RBC COUNT 4.28 X10E12/L Normal 3.80-5.20 [facility] Comment on above: Performed By: #### C BCA, CMP #### [facility] ([id number]) [address] [place] [address] WBC (Bld) [#/Vol] 5.2 10*3/uL Normal 4.0-11.0 [facility] Comment on above: Performed By: #### C BCA, CMP #### [facility] ([id number]) [address] [place] [address] CBC auto differentialon 03-13 Basophils (Bld) [#/Vol] 0.1 10*3/uL [facility] Basophils/100 WBC (Bld) 1.1 % [facility] Eosinophils (Bld) [#/Vol] 0.1 10*3/uL [facility] Eosinophils/100 WBC (Bld) 2.7 % [facility] Erythrocyte distribution width (RBC) [Ratio] 18.7 % High 11.5 - 15.0 % [facility] Hematocrit (Bld) [Volume fraction] 31.3 % Low 35 - 47 % [facility] Hemoglobin (Bld) [Mass/Vol] 9.9 g/dL Low 11.7 - 15.5 g/dL [facility] Interpretation and review of laboratory results Abnormal [facility] Lymphocytes (Bld) [#/Vol] 2.2 10*3/uL [facility] Lymphocytes/100 WBC (Bld) 42.4 % [facility] MCH (RBC) [Entitic mass] 23.2 pg Low 27 - 34 pg [facility] MCHC (RBC) [Mass/Vol] 31.7 g/dL Low 32 - 3 6 g/dL [facility] MCV (RBC) [Entitic vol] 73 fL Low 80 - 100 fL [facility] Monocytes (Bld) [#/Vol] 0.4 10*3/uL [facility] Monocytes/100 WBC (Bld) 7.9 % [facility] Neutrophils (Bld) [#/Vol] 2.4 10*3/uL [facility] Neutrophils/100 WBC (Bld) 45.9 % [facility] Platelet mean volume (Bld) [Entitic vol] 8 fL 7 - 12 fL [facility] Platelets (Bld) [#/Vol] 457 10*3/uL High [facility] RBC (Bld) [#/Vol] 4.28 10*6/uL [facility] WBC corrected for nucl RBC Auto (Bld) [#/Vol] 5.2 [facility] System [facility] COMPREHENSIVE METABOLIC PANE Van 03-28-2024 Albumin [Mass/Vol] 4.0 g/dL Normal 3.2-5.3 [facility] Comment on above: Performed By: #### C HEATH, CMP #### [facility] ([id number]) [address] [place] [address] ALP [Catalytic activity/Vol] 61 U/L Normal 39-130 [facility] Comment on above: Performed By: #### C HEATH, CMP #### [facility] ([id number]) [address] [place] [address] ALT [Catalytic activity/Vol] 12 U/L Normal 0-31 [facility] Comment on above: Performed By: #### C BCA, CMP #### [facility] ([id number]) [address] [place] [address] Anion gap [Moles/Vol] 10 mmol/L Normal 5-15 [facility] Comment on above: Performed By: #### C BCA, CMP #### [facility] ([id number]) [address] [place] [address] AST [Catalytic activity/Vol] 14 U/L Normal 0-41 [facility] Comment on above: Performed By: #### C BCA, CMP #### [facility] ([id number]) [address] [place] [address] Bilirubin [Mass/Vol] 0.3 mg/dL Normal 0.3-1.2 [facility] Comment on above: Performed By: #### C BCA, CMP #### [facility] ([id number]) [address] [place] [address] Calcium [Mass/Vol] 9.0 mg/dL Normal 8.5-10.5 [facility] Comment on above: Performed By: #### C BCA, CMP #### [facility] ([id number]) [address] [place] [address] Chloride [Moles/Vol] 107 mmol/L Normal 98-109 [facility] Comment on above: Performed By: #### C BCA, CMP #### [facility] ([id number]) [address] [place] [address] CO2 [Moles/Vol] 24 mmol/L Normal 22-32 [facility] Comment on above: Performed By: #### C BCA, CMP #### [facility] ([id number]) [address] [place] [address] Creatinine [Mass/Vol] 0.72 mg/dL Normal 0.40-1.00 [facility] Comment on above: Result Comment: METH OD TRACEABLE TO IDMS STANDARD Performed By: #### C BCA, CMP #### [facility] ([id number]) [address] [place] [address] eGFR (CKD-EPI) NON-RACE DEPENDENT >90 Normal >59 [facility] Comment on above: Result Comment: Reported eGFR is based on the CKD-EPI 2020 equation that does not use a race coefficient. Performed By: #### C BCA, CMP #### [facility] ([id number]) [address] [place] [address] Glucose [Mass/Vol] 101 mg/dL High 65-99 [facility] Comment on above: Performed By: #### C BCA, CMP #### [facility] ([id number]) [address] [place] [address] Potassium [Moles/Vol] 3.9 mmol/L Normal 3.5-5.0 [facility] Comment on above: Performed By: #### C BCA, CMP #### [facility] ([id number]) [address] [place] [address] Protein [Mass/Vol] 6.9 g/dL Normal 6.0-8.0 [facility] Comment on above: Performed By: #### C BCA, CMP #### [facility] ([id number]) [address] [place] [address] Sodium [Moles/Vol] 141 mmol/L Normal 134-146 [facility] Comment on above: Performed By: #### C BCA, CMP #### [facility] ([id number]) [address] [place] [address] Urea nitrogen [Mass/Vol] 10 mg/dL Normal 5-23 [facility] Comment on above: Performed By: #### C BCA, CMP #### [facility] ([id number]) [address] [place] [address] Comprehensive metabolic pane [facility] 03-28-2024 Albumin [Mass/Vol] 4 g/dL 3.2 - 5.3 g/dL [facility] ALP [Catalytic activity/Vol] 61 U/L 39 - 130 U/L [facility] ALT No additional P-5'-P [Catalytic activity/Vol] 12 U/L 0 - 31 U/L [facility] Anion gap [Moles/Vol] 10 mmol/L 5 - 15 mmol/L [facility] AST [Catalytic activity/Vol] 14 U/L 0 - 41 U/L [facility] Bilirubin [Mass/Vol] 0.3 mg/dL 0.3 - 1 .2 mg/dL [facility] Calcium [Mass/Vol] 9 mg/dL 8.5 - 10. 5 mg/dL [facility] Chloride [Moles/Vol] 107 mmol/L 98 - 10 9 mmol/L [facility] CO2 [Moles/Vol] 24 mmol/L 22 - 32 mmol/L [facility] Creatinine [Mass/Vol] 0.72 mg/dL 0.40 - 1.00 mg/dL [facility] Comment on above: METHOD TRACEABLE TO IDKY STANDARD eGFR (CKD-EPI)non-race dependent - PINF [facility] Comment on above: Reported eGFR is based on the CKD-EPI 2020 equation that does not use a race coefficient. Glucose [Mass/Vol] 101 mg/dL High 65 - 99 mg/dL [facility] Interpretation and review of laboratory results Abnormal [facility] Potassium [Moles/Vol] 3.9 mmol/L 3.5 - 5.0 mmol/L [facility] Protein [Mass/Vol] 6.9 g/dL 6.0 - 8.0 g/dL [facility] Sodium [Moles/Vol] 141 mmol/L 134 - 146 mmol/L [facility] Urea nitrogen [Mass/Vol] 10 mg/dL 5 - 23 mg/dL [facility] CBC AND AUTO DIFFon 03-07-20 ABSOLUTE BASOPHIL 0.1 X10E9/L Normal 0.0-0.2 [facility] Comment on above: Performed By: #### N UM #### [facility] ([id number]) [address] [place] [address] ABSOLUTE NEUTROPHIL 3.0 X10E9/L Normal 1.5-6.6 [facility] Comment on above: Performed By: #### N UM #### [facility] ([id number]) [address] [place] [address] Basophils/100 WBC (Bld) 1.1 % Normal P [facility] Comment on above: Performed By: #### N UM #### [facility] ([id number]) [address] [place] [address] Eosinophils (Bld) [#/Vol] 0.1 10*3/uL Normal 0.0-0.4 [facility] Comment on above: Performed By: #### N UM #### [facility] ([id number]) [address] [place] [address] Eosinophils/100 WBC (Bld) 1.0 % Normal [facility] Comment on above: Performed By: #### N UM #### [facility] ([id number]) [address] [place] [address] Erythrocyte distribution width (RBC) [Ratio] 17.6 % High 11.5-15.0 [facility] Comment on above: Performed By: #### N UM #### [facility] ([id number]) [address] [place] [address] Hematocrit (Bld) [Volume fraction] 34.1 % Low 35-47 [facility] Comment on above: Performed By: #### N UM #### [facility] ([id number]) [address] [place] [address] Hemoglobin (Bld) [Mass/Vol] 10.9 g/dL Low 11.7-15.5 [facility] Comment on above: Performed By: #### N UM #### [facility] ([id number]) [address] [place] [address] Lymphocytes (Bld) [#/Vol] 2.0 10*3/uL Normal 1.0-3.5 [facility] Comment on above: Performed By: #### N UM #### [facility] ([id number]) [address] [place] [address] Lymphocytes/100 WBC (Bld) 36.4 % Normal [facility] Comment on above: Performed By: #### N UM #### [facility] ([id number]) [address] [place] [address] MCH (RBC) [Entitic mass] 22.7 pg Low 27-34 [facility] Comment on above: Performed By: #### N UM #### [facility] ([id number]) [address] [place] [address] MCHC (RBC) [Mass/Vol] 31.8 g/dL Low 32-36 [facility] Comment on above: Performed By: #### N UM #### [facility] ([id number]) [address] [place] [address] MCV (RBC) [Entitic vol] 71 fL Low 80-100 P [facility] Comment on above: Performed By: #### N UM #### [facility] ([id number]) [address] [place] [address] Monocytes (Bld) [#/Vol] 0.4 10*3/uL Normal 0-0.9 [facility] Comment on above: Performed By: #### N UM #### [facility] ([id number]) [address] [place] [address] Monocytes/100 WBC (Bld) 6.9 % Normal [facility] Comment on above: Performed By: #### N UM #### [facility] ([id number]) [address] [place] [address]89[address] Neutrophils/100 WBC (Bld) 54.6 % Normal [facility] Comment on above: Performed By: #### N UM #### [facility] ([id number]) [address] [place] [address] Platelet mean volume (Bld) [Entitic vol] 7.7 fL Normal 7-12 [facility] Comment on above: Performed By: #### N UM #### [facility] ([id number]) [address] [place] [address] Platelets (Bld) [#/Vol] 514 10*3/uL High 150-450 [facility] Comment on above: Performed By: #### N UM #### [facility] ([id number]) [address] [place] [address] RBC COUNT 4.78 X10E12/L Normal 3.80-5.20 [facility] Comment on above: Performed By: #### N UM #### [facility] ([id number]) [address] [place] [address] WBC (Bld) [#/Vol] 5.5 10*3/uL Normal 4.0-11.0 [facility] Comment on above: Performed By: #### N UM #### [facility] ([id number]) [address] [place] [address] COMPREHENSIVE METABOLIC PANE Van 03-07-2024 Albumin [Mass/Vol] 4.5 g/dL Normal 3.2-5.3 [facility] Comment on above: Performed By: #### N UM #### [facility] ([id number]) [address] [place] [address] ALP [Catalytic activity/Vol] 64 U/L Normal 39-130 [facility] Comment on above: Performed By: #### N UM #### [facility] ([id number]) [address] [place] [address] ALT [Catalytic activity/Vol] 18 U/L Normal 0-31 [facility] Comment on above: Performed By: #### N UM #### [facility] ([id number]) [address] [place] [address] Anion gap [Moles/Vol] 8 mmol/L Normal 5-15 [facility] Comment on above: Performed By: #### N UM #### [facility] ([id number]) [address] [place] [address] AST [Catalytic activity/Vol] 19 U/L Normal 0-41 [facility] Comment on above: Performed By: #### N UM #### [facility] ([id number]) [address] [place] [address] Bilirubin [Mass/Vol] 0.7 mg/dL Normal 0.3-1.2 [facility] Comment on above: Performed By: #### N UM #### [facility] ([id number]) [address] [place] [address] Calcium [Mass/Vol] 9.4 mg/dL Normal 8.5-10.5 [facility] Comment on above: Performed By: #### N UM #### [facility] ([id number]) [address] [place] [address] 21684 Chloride [Moles/Vol] 105 mmol/L Normal 98-109 [facility] Comment on above: Performed By: #### N UM #### [facility] ([id number]) [address] [place] [address] CO2 [Moles/Vol] 21 mmol/L Low 22-32 [facility] Comment on above: Performed By: #### N UM #### [facility] ([id number]) [address] [place] [address] 33748 Creatinine [Mass/Vol] 0.68 mg/dL Normal 0.40-1.00 [facility] Comment on above: Result Comment: METH OD TRACEABLE TO IDMS STANDARD Performed By: #### N UM #### [facility] ([id number]) [address] [place] [address] 08075 eGFR (CKD-EPI) NON-RACE DEPENDENT >90 Normal >59 [facility] Comment on above: Result Comment: Reported eGFR is based on the CKD-EPI 2020 equation that does not use a race coefficient. Performed By: #### N UM #### [facility] ([id number]) [address] [place] [address] Glucose [Mass/Vol] 107 mg/dL High 65-99 [facility] Comment on above: Performed By: #### N UM #### [facility] ([id number]) [address] [place] [address] 42598 Potassium [Moles/Vol] 3.8 mmol/L Normal 3.5-5.0 [facility] Comment on above: Performed By: #### N UM #### [facility] ([id number]) [address] [place] [address] 87045 Protein [Mass/Vol] 8.6 g/dL High 6.0-8.0 [facility] Comment on above: Performed By: #### N UM #### [facility] ([id number]) [address] [place] [address] 61352 Sodium [Moles/Vol] 134 mmol/L Normal 134-146 [facility] Comment on above: Performed By: #### N UM #### [facility] ([id number]) [address] [place] [address] 29286 Urea nitrogen [Mass/Vol] 10 mg/dL Normal 5-23 [facility] Comment on above: Performed By: #### N UM #### [facility] ([id number]) [address] [place] [address] 29737 HCG ( test) Ql (U)o n 03-07-2024 Beta HCG ( test) Ql (U) Negative Normal NEG [facility] Comment on above: Performed By: #### C BCA, CMP #### [facility] ([id number]) [address] [place] [address] 44074 URN MACROSCOPIC NURon 2023 BILIRUBIN AUDREY Negative Normal NEG [facility] Comment on above: Performed By: #### C BCA, CMP #### [facility] ([id number]) [address] [place] [address] [place] [address] BLOOD/HGB AUDREY Trace Abnormal NEG [facility] Comment on above: Performed By: #### C BCA, CMP #### [facility] ([id number]) [address] [place] [address] 00546 GLUCOSE AUDREY Negative Normal NEG [facility] Comment on above: Performed By: #### C BCA, CMP #### [facility] ([id number]) [address] [place] [address] [place] [address] KETONES AUDREY Negative Normal NEG [facility] Comment on above: Performed By: #### C BCA, CMP #### [facility] ([id number]) [address] [place] [address] 83274 LEUKOCYTE ESTERASE AUDREY Negative Normal NEG Pr [facility] Comment on above: Performed By: #### C BCA, CMP #### [facility] ([id number]) [address] [place] [address] [place] [address] NITRITE AUDREY Negative Normal NEG [facility] Comment on above: Performed By: #### C BCA, CMP #### [facility] ([id number]) [address] [place] [address] [place] [address] PH AUDREY 6.0 Normal 5.0-8.5 [facility] Comment on above: Performed By: #### C BCA, CMP #### [facility] ([id number]) [address] [place] [address] [place] [address] PROTEIN AUDREY Negative Normal NEG [facility] Comment on above: Performed By: #### C BCA, CMP #### [facility] ([id number]) [address] [place] [address] [place] [address] SPECIFIC GRAVITY AUDREY 1.010 Normal 1.003-1.035 [facility] Comment on above: Performed By: #### C BCA, CMP #### [facility] ([id number]) [address] [facility], [place] [address] UROBILINOGEN AUDREY 0.2 eu/dL Normal <1.1 [facility] Comment on above: Performed By: #### C BCA, CMP #### [facility] ([id number]) [address] [facility], [place] [address] CBCon 02-24-2024 ABSOLUTE BAS 0.1 10*3/uL Normal 0.0-0.2 [facility] ABSOLUTE EOS 0.2 10*3/uL Normal 0.0-0.7 [facility] ABSOLUTE NEUTROPHIL COUNT 3.2 10*3/uL Normal 1.4-6.5 [facility] Basophils/100 WBC (Bld) 0.7 % Normal 0.0-2.0 [facility] DTYPE AUTO DIFF Normal [facility] Eosinophils/100 WBC (Bld) 2.3 % Normal 0.0-11.0 [facility] Lymphocytes (Bld) [#/Vol] 3.5 10*3/uL High 1.2-3.4 [facility] Lymphocytes/100 WBC (Bld) 47.1 % Normal 20.0-55.0 [facility] Monocytes (Bld) [#/Vol] 0.5 10*3/uL Normal 0.0-0.7 [facility] Monocytes/100 WBC (Bld) 7.4 % Normal 0.0-10.0 [facility] Neutrophils/100 WBC (Bld) 42.5 % Normal 37.0-75.0 [facility] Erythrocyte distribution width (RBC) [Ratio] 17.1 % High 11.5-14.5 [facility] Hematocrit (Bld) [Volume fraction] 33.6 % Low 36.0-48.0 [facility] Hemoglobin (Bld) [Mass/Vol] 10.3 g/dL Low 12.0-16.0 [facility] MCH (RBC) [Entitic mass] 22.7 pg Low 26.0-35.0 [facility] MCHC (RBC) [Mass/Vol] 30.8 g/dL Normal 27.0-37.0 [facility] MCV (RBC) [Entitic vol] 73.5 fL Low 80.0-100.0 [facility] Platelet mean volume (Bld) [Entitic vol] 7.9 fL Normal 7.4-11.0 [facility] Platelets (Bld) [#/Vol] 466 10*3/uL High 130-400 [facility] RBC (Bld) [#/Vol] 4.57 10*6/uL Normal 4.0-5.4 [facility] WBC (Bld) [#/Vol] 7.4 10*3/uL Normal 3.6-11.0 [facility] CBC, EDIF, PLATELETon 2023 ABSOLUTE BASOPHIL COUNT 0.1 10*3/uL 0.0 - 0.2 10*3/uL [facility] Basophils/100 WBC (Bld) 0.7 % 0.0 - 2.0 % [facility] Differential cell count method Nom (Bld) AUTO DIFF % [facility] Eosinophils (Bld) [#/Vol] 0.2 10*3/uL 0.0 - 0.7 10*3/uL [facility] Eosinophils/100 WBC (Bld) 2.3 % 0.0 - 11.0 % [facility] Erythrocyte distribution width (RBC) [Ratio] 17.1 % High 11.5 - 14.5 % [facility] Hematocrit (Bld) [Volume fraction] 33.6 % Low 36.0 - 48.0 % [facility] Hemoglobin (Bld) [Mass/Vol] 10.3 g/dL Low [facility] Interpretation and review of laboratory results Abnormal [facility] Lymphocytes (Bld) [#/Vol] 3.5 10*3/uL High 1.2 - 3.4 10*3/uL [facility] Lymphocytes/100 WBC (Bld) 47.1 % 20.0 - 55.0 % [facility] MCH (RBC) [Entitic mass] 22.7 pg Low 26.0 - 35.0 PG [facility] MCHC (RBC) [Mass/Vol] 30.8 g/dL [facility] MCV (RBC) [Entitic vol] 73.5 fL Low A [facility] Monocytes (Bld) [#/Vol] 0.5 10*3/uL 0.0 - 0.7 10*3/uL [facility] Monocytes/100 WBC (Bld) 7.4 % 0.0 - 10.0 % [facility] Neutrophils (Bld) [#/Vol] 3.2 10*3/uL 1.4 - 6.5 10*3/uL [facility] Neutrophils/100 WBC (Bld) 42.5 % 37.0 - 75.0 % [facility] Platelet mean volume (Bld) [Entitic vol] 7.9 fL [facility] Platelets (Bld) [#/Vol] 466 10*3/uL High 130 - 400 10*3/uL [facility] RBC (Bld) [#/Vol] 4.57 10*6/uL 4.0 - 5.4 10*6/uL [facility] WBC (Bld) [#/Vol] 7.4 10*3/uL 3.6 - 11.0 10*3/uL [facility] CMP FASTINGon 02-24-2024 A:G RATIO 1.1 RATIO Low 1.3-2.2 [facility] ALBUMIN 4.1 G/dl Normal 3.5-5.0 [facility] ALP [Catalytic activity/Vol] 62 U/L Normal 38-126 [facility] ALT [Catalytic activity/Vol] 23 U/L Normal <35 [facility] AST [Catalytic activity/Vol] 45 U/L High 14-36 [facility] Bilirubin [Mass/Vol] 0.3 mg/dL Normal 0.2-1.3 [facility] Calcium [Mass/Vol] 8.8 mg/dL Normal 8.4-10.2 [facility] Chloride [Moles/Vol] 110 mmol/L High 98-107 [facility] Comment on above: Result Comment: Salvador carlson note: Triglyceride levels of 600mg/dL or higher may positively bias chloride results by approximately 2.1 mmol CO2 [Moles/Vol] 23 mmol/L Normal 22-30 [facility] Creatinine [Mass/Vol] 0.80 mg/dL Normal 0.7-1.2 [facility] EST. GFR, 104 ml/min/1.73sq.m Normal [facility] EST. GFR,Non 86 ml/min/1.73sq.m Normal [facility] GFR Information Average GFR for 30-3 9 years old = 107. Normal 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 Kidney failure, GFR = <15. The GFR estimate is not adjusted for extreme body surface area or acute process, nor has it been validated for women or ethnic groups other than and . Glucose [Mass/Vol] 81 mg/dL Normal 70-100 [facility] Comment on above: Result Comment: NORMAL <100 mg/dL PREDIABETES 101-126 mg/dL DIABETES 126 mg/dL or higher Potassium [Moles/Vol] 3.9 mmol/L Normal 3.5-5.1 [facility] Protein [Mass/Vol] 7.7 g/dL Normal 6.3-8.2 [facility] Sodium [Moles/Vol] 141 mmol/L Normal 137-145 [facility] Urea nitrogen [Mass/Vol] 9 mg/dL Normal 7-20 [facility] COMPREHENSIVE METABOLIC PANE Van 02-24-2024 Albumin [Mass/Vol] 4.1 G/dl 3.5 - 5.0 G/dl [facility] Albumin/Globulin [Mass ratio] 1.1 {ratio} Low [facility] ALP [Catalytic activity/Vol] 62 U/L [facility] ALT [Catalytic activity/Vol] 23 U/L NINF [facility] AST [Catalytic activity/Vol] 45 U/L High [facility] Bilirubin [Mass/Vol] 0.3 mg/dL [facility] Calcium [Mass/Vol] 8.8 mg/dL [facility] Chloride [Moles/Vol] 110 mmol/L High [facility] Comment on above: Please note: Triglyc eride levels of 600mg/dL or higher may positively bias chloride results by approximately 2.1 mmol CO2 [Moles/Vol] 23 mmol/L [facility] Creatinine [Mass/Vol] 0.80 mg/dL [facility] GFR COMMENT Average GFR for 30-3 9 years old = 107. [facility] Comment on above: Chronic Kidney disea se, GFR = <60. Kidney failure, GFR = <15. The GFR estimate is not adjusted for extreme body surface area or acute process, nor has it been validated for women or ethnic groups other than and . GFR/1.73 sq M.predicted among blacks MDRD (S/P/Bld) [Vol rate/Area] 104 mL/min/{1.73_m2} ml/min/1.73 sq.m [facility] GFR/1.73 sq M.predicted among non-blacks MDRD (S/P/Bld) [Vol rate/Area] 86 mL/min/{1.73_m2} ml/min/1.73 sq.m [facility] Glucose post fast [Mass/Vol] 81 mg/dL [facility] Comment on above: NORMAL <100 mg/dL PREDIABETES 101-126 mg/dL DIABETES 126 mg/dL or higher Interpretation and review of laboratory results Abnormal [facility] Potassium [Moles/Vol] 3.9 mmol/L [facility] Protein [Mass/Vol] 7.7 g/dL [facility] Sodium [Moles/Vol] 141 mmol/L [facility] Urea nitrogen [Mass/Vol] 9 mg/dL [facility] HCG ( test) Ql (U)o n 02-24-2024 [facility] HCG QUALITATIVE, URINEon HCG ( test) Ql (U) Negative [facility] No Panel Informationon 02-23 Interpretation and review of laboratory results Abnormal [facility] URINALYSIS, MACROon 02-24-20 24 Bilirubin Ql (U) Negative NEGATIVE [facility] Clarity (U) CLEAR CLEAR [facility] Color (U) YELLOW YELLOW [facility] Glucose Test strip (U) [Mass/Vol] Negative NEGATIVE mg/dl [facility] Hemoglobin Ql (U) Negative NEGATIVE [facility] Ketones (U) [Mass/Vol] Negative NEGAT NAYE mg/dl [facility] Leukocyte esterase Test strip Ql (U) MODERATE Abnormal NEGATIVE [facility] Nitrite Ql (U) Negative NEGATIVE [facility] pH (U) 6.0 [pH] 5.0 - 7.0 [facility] Protein Ql (U) Negative NEGATIVE mg/dl [facility] Specific gravity (U) [Rel density] 1.010 1.010 - 1.025 [facility] Urobilinogen (U) [Mass/Vol] 0.2 mg/dL [facility] URINE HCG QUALon 02-24-2024 Beta HCG ( test) Ql (U) Negative Normal [facility] URINE MACROSCOPICon 02-24-20 24 Bilirubin Ql (U) Negative Normal NEGATIVE [facility] Clarity (U) CLEAR Normal CLEAR [facility] Color (U) YELLOW Normal YELLOW [facility] Glucose Ql (U) Negative Normal NEGATIVE [facility] pH (U) 6.0 [pH] Normal 5.0-7.0 [facility] URINE HEMOGLOBIN Negative Normal NEGATIVE [facility] URINE KETONE Negative Normal NEGATIVE [facility] URINE LEUKOTEST MODERATE Abnormal NEGATIVE [facility] URINE NITRATES Negative Normal NEGATIVE [facility] URINE SPEC GRAVITY 1.010 Normal 1.010-1.025 [facility] URINE TOTAL PROTEIN Negative Normal NEGATIVE [facility] Urobilinogen Qn (U) 0.2 {Ivone'U}/dL Normal 0.2-1.0 [facility] URINE MICROSCOPICon 02-24-20 24 Bacteria LM.HPF (Urine sed) [#/Area] TRACE Abnormal NEGATIVE [facility] Casts LM.LPF (Urine sed) [#/Area] NONE NONE /F [facility] Crystals LM Nom (Urine sed) NONE NONE [facility] Epithelial cells LM Ql (Urine sed) 5 TO 10 /HPF [facility] Mucus Ql (Urine sed) Negative NEGATIVE [facility] RBC LM.HPF (Urine sed) [#/Area] Negative NEGATIVE /HPF [facility] Urine sediment comments LM Edson (Urine sed) CULTURE CRITERIA NOT MET, NO CULTURE PERFORMED. [facility] WBC LM.HPF (Urine sed) [#/Area] 1 TO 5 NEGATIVE /HPF [facility] BACTERIA TRACE Abnormal NEGATIVE [facility] CASTS NONE Normal NONE [facility] CRYSTAL NONE Normal NONE [facility] Epithelial cells LM Ql (Urine sed) [address] [facility] Mucus Ql (Urine sed) Negative Normal NEGATIVE [facility] URINE COMMENT CULTURE CRITERIA NOT MET, NO CULTURE PERFORMED. Normal [facility] URINE RBC'S Negative Normal NEGATIVE [facility] URINE WBC'S 1 TO [address] [facility] CBCon 02-16-2024 ABSOLUTE BAS 0.1 10*3/uL Normal 0.0-0.2 [facility] ABSOLUTE EOS 0.0 10*3/uL Normal 0.0-0.7 [facility] ABSOLUTE NEUTROPHIL COUNT 2.7 10*3/uL Normal 1.4-6.5 [facility] Basophils/100 WBC (Bld) 1.4 % Normal 0.0-2.0 [facility] DTYPE AUTO DIFF Normal [facility] Eosinophils/100 WBC (Bld) 0.5 % Normal 0.0-11.0 [facility] Lymphocytes (Bld) [#/Vol] 2.1 10*3/uL Normal 1.2-3.4 [facility] Lymphocytes/100 WBC (Bld) 40.3 % Normal 20.0-55.0 [facility] Monocytes (Bld) [#/Vol] 0.3 10*3/uL Normal 0.0-0.7 [facility] Monocytes/100 WBC (Bld) 5.6 % Normal 0.0-10.0 [facility] Neutrophils/100 WBC (Bld) 52.2 % Normal 37.0-75.0 [facility] Erythrocyte distribution width (RBC) [Ratio] 17.0 % High 11.5-14.5 [facility] Hematocrit (Bld) [Volume fraction] 35.2 % Low 36.0-48.0 [facility] Hemoglobin (Bld) [Mass/Vol] 10.9 g/dL Low 12.0-16.0 [facility] MCH (RBC) [Entitic mass] 22.6 pg Low 26.0-35.0 [facility] MCHC (RBC) [Mass/Vol] 30.9 g/dL Normal 27.0-37.0 [facility] MCV (RBC) [Entitic vol] 73.0 fL Low 80.0-100.0 A [facility] Platelet mean volume (Bld) [Entitic vol] 7.3 fL Low 7.4-11.0 [facility] Platelets (Bld) [#/Vol] 529 10*3/uL High 130-400 [facility] RBC (Bld) [#/Vol] 4.81 10*6/uL Normal 4.0-5.4 [facility] WBC (Bld) [#/Vol] 5.1 10*3/uL Normal 3.6-11.0 [facility] CBC, EDIF, PLATELETon 2023 ABSOLUTE BASOPHIL COUNT 0.1 10*3/uL 0.0 - 0.2 10*3/uL [facility] Basophils/100 WBC (Bld) 1.4 % 0.0 - 2.0 % [facility] Differential cell count method Nom (Bld) AUTO DIFF % [facility] Eosinophils (Bld) [#/Vol] 0.0 10*3/uL 0.0 - 0.7 10*3/uL [facility] Eosinophils/100 WBC (Bld) 0.5 % 0.0 - 11.0 % [facility] Erythrocyte distribution width (RBC) [Ratio] 17.0 % High 11.5 - 14.5 % [facility] Hematocrit (Bld) [Volume fraction] 35.2 % Low 36.0 - 48.0 % [facility] Hemoglobin (Bld) [Mass/Vol] 10.9 g/dL Low [facility] Interpretation and review of laboratory results Abnormal [facility] Lymphocytes (Bld) [#/Vol] 2.1 10*3/uL 1.2 - 3.4 10*3/uL [facility] Lymphocytes/100 WBC (Bld) 40.3 % 20.0 - 55.0 % [facility] MCH (RBC) [Entitic mass] 22.6 pg Low 26.0 - 35.0 PG [facility] MCHC (RBC) [Mass/Vol] 30.9 g/dL [facility] MCV (RBC) [Entitic vol] 73.0 fL Low [facility] Monocytes (Bld) [#/Vol] 0.3 10*3/uL 0.0 - 0.7 10*3/uL [facility] Monocytes/100 WBC (Bld) 5.6 % 0.0 - 10.0 % [facility] Neutrophils (Bld) [#/Vol] 2.7 10*3/uL 1.4 - 6.5 10*3/uL [facility] Neutrophils/100 WBC (Bld) 52.2 % 37.0 - 75.0 % [facility] Platelet mean volume (Bld) [Entitic vol] 7.3 fL Low [facility] Platelets (Bld) [#/Vol] 529 10*3/uL High 130 - 400 10*3/uL [facility] RBC (Bld) [#/Vol] 4.81 10*6/uL 4.0 - 5.4 10*6/uL [facility] WBC (Bld) [#/Vol] 5.1 10*3/uL 3.6 - 11.0 10*3/uL [facility] CHEM 7 FASTINGon 02-16-2024 Chloride [Moles/Vol] 109 mmol/L High 98-107 [facility] Comment on above: Result Comment: Salvador carlson note: Triglyceride levels of 600mg/dL or higher may positively bias chloride results by approximately 2.1 mmol CO2 [Moles/Vol] 22 mmol/L Normal 22-30 [facility] Creatinine [Mass/Vol] 0.70 mg/dL Normal 0.7-1.2 [facility] EST. GFR, 121 ml/min/1.73sq.m [facility] EST. GFR,Non 100 ml/min/1.73sq.m [facility] GFR Information Average GFR for 30-3 9 years old = 107. Normal 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 Kidney failure, GFR = <15. The GFR estimate is not adjusted for extreme body surface area or acute process, nor has it been validated for women or ethnic groups other than and . Glucose [Mass/Vol] 106 mg/dL High 70-100 [facility] Comment on above: Result Comment: NORMAL <100 mg/dL PREDIABETES 101-126 mg/dL DIABETES 126 mg/dL or higher Potassium [Moles/Vol] 3.8 mmol/L Normal 3.5-5.1 [facility] Sodium [Moles/Vol] 139 mmol/L Normal 137-145 [facility] Urea nitrogen [Mass/Vol] 8 mg/dL Normal 7-20 [facility] CHEM 7 (LYTES,BUN,CREA,GLUC) on 02-16-2024 Chloride [Moles/Vol] 109 mmol/L [facility] Comment on above: Please note: Triglyc eride levels of 600mg/dL or higher may positively bias chloride results by approximately 2.1 mmol CO2 [Moles/Vol] 22 mmol/L [facility] Creatinine [Mass/Vol] 0.70 mg/dL [facility] GFR COMMENT Average GFR for 30-3 9 years old = 107. [facility] Comment on above: Chronic Kidney disea se, GFR = <60. Kidney failure, GFR = <15. The GFR estimate is not adjusted for extreme body surface area or acute process, nor has it been validated for women or ethnic groups other than and . GFR/1.73 sq M.predicted among blacks MDRD (S/P/Bld) [Vol rate/Area] 121 mL/min/{1.73_m2} ml/min/1.73 sq.m [facility] GFR/1.73 sq M.predicted among non-blacks MDRD (S/P/Bld) [Vol rate/Area] 100 mL/min/{1.73_m2} ml/min/1.73 sq.m [facility] Glucose post fast [Mass/Vol] 106 mg/dL High [facility] Comment on above: NORMAL <100 mg/dL PREDIABETES 101-126 mg/dL DIABETES 126 mg/dL or higher Potassium [Moles/Vol] 3.8 mmol/L [facility] Sodium [Moles/Vol] 139 mmol/L [facility] Urea nitrogen [Mass/Vol] 8 mg/dL [facility] CT ABDOMEN/PELVIS WITH CONTR Agustín 02-16-2024 [...] 3. There is no obstructive uropathy. Normal [facility] CT Abdomen and Pelvis W cont rast [...] lesion. 3. There is no obstructive uropathy. [facility] Rad[facility] Study observation (narrative) [facility] CT Abdomen and Pelvis W cont rast IVOrdered By: Jadon Ashraf on 02-16-2024 [facility] Work Phone: HCG ( test) Ql (U)o n 02-16-2024 [facility] HCG QUALITATIVE, URINEon HCG ( test) Ql (U) Negative [facility] HEPATIC FUNCTION PANELon Albumin [Mass/Vol] 4.5 g/dL [facility] ALP [Catalytic activity/Vol] 71 U/L [facility] ALT [Catalytic activity/Vol] 24 U/L NINF [facility] AST [Catalytic activity/Vol] 27 U/L [facility] Bilirubin [Mass/Vol] 0.5 mg/dL [facility] Bilirubin.direct [Mass/Vol] 0.5 mg/dL High [facility] Protein [Mass/Vol] 8.2 g/dL [facility] LIPASEon 02-16-2024 Lipase [Catalytic activity/Vol] 127 U/L 23 - 300 U/L [facility] LIPASE,SERUMon 02-16-2024 LIPASE,SERUM 127 U/L Normal 23-300 [facility] LIVER PANELon 02-16-2024 Albumin [Mass/Vol] 4.5 g/dL Normal 3.5-5.0 [facility] ALP [Catalytic activity/Vol] 71 U/L Normal 38-126 [facility] ALT [Catalytic activity/Vol] 24 U/L Normal <35 [facility] AST [Catalytic activity/Vol] 27 U/L Normal 14-36 [facility] Bilirubin [Mass/Vol] 0.5 mg/dL Normal 0.2-1.3 [facility] Bilirubin.indirect [Mass/Vol] 0.5 mg/dL High 0-0.4 [facility] Protein [Mass/Vol] 8.2 g/dL Normal 6.3-8.2 [facility] No Panel Informationon 02-15 Interpretation and review of laboratory results Abnormal [facility] PROTIMEon 02-16-2024 INR Coag (PPP) [Relative time] 0.89 {INR} Normal 0.88-1.14 [facility] Comment on above: Result Comment: 2.0-3.0 THERAPEUTIC RANGE 2.5-3.5 MECHANICAL VALVE RANGE PT Coag (PPP) [Time] 12.2 s Normal 11.8-14.4 [facility] PROTIME-INRon 02-16-2024 INR Coag (PPP) [Relative time] 0.89 {INR} 0.88 - 1.14 [facility] Comment on above: 2.0-3.0 THERAPEUTIC RANGE 2.5-3.5 MECHANICAL VALVE RANGE PT Coag (PPP) [Time] 12.2 s [facility] Portable XR Chest Viewson IMPRESSION: 1. [...] No free air collections underneath the diaphragms. [facility] Radiology Study observation (narrative) [facility] Portable XR Chest ViewsOrder ed By: Davi Cheng on 02-16-2024 [facility] Work Phone: URINE HCG QUALon 02-16-2024 Beta HCG ( test) Ql (U) Negative Normal [facility] XR CHEST 1 VIEW PORTABLEon 0 02-16-2024 [...] free air collections underneath the diaphragms. Normal [facility] ED Clinical Summaryon 2023 ED Clinical Summary ED Clinical Summary [place] [id number] ED Clinical Summary Person Information Name: ANTONIA NOYOLA/Michelle Age: 39 Years : 1985 Sex: Female Language: Lebanese PCP: NONE, XXXX Marital Status: Visit Id: [...] 01:00:19 ADDRESS: [address] [place] [id number] PHYS DOC NOTES: MEDICAL INFORMATION: Prescriptions Given: New Medications [id number], [address] [place] [id number], [phone] amoxicillin-clavulanat e (Augmentin 875 mg-125 mg Tab) [...] Pain Follow up: With: Address: When: Dental: [facility] [phone] In 3 days 02/16/2024 With: Address: When: Dental: [facility] [employer] [facility] [place] [phone] In 3 days 02/16/2024 With: Address: When: Dental: [facility] [phone] In 3 days 02/16/2024 DIAGNOSIS: Pain, dental Normal [facility] ED Note-Physicianon 02-13-20 ED Note-Physician ED [...] and was given a short prescription for [place] which she is also taking but states [...] and Complexity of Problems Differential Diagnosis: [] [facility] Data External documents reviewed: N/A My [...] already taking oral Toradol as well as [place]. We discussed using lidocaine and bupivacaine soaked [...] for 7 day(s), 14 tab(s), Refill(s) 0, [id number], 165.1, cm, 02/13/24 0:28:00 [...] q12hr Follow-up With When Contact Information Dental: [facility] [phone] In 3 days 02/16/2024 EDT Additional Instructions: Dental: [place] [employer] [facility] [place] [phone] In 3 days 02/16/2024 EDT Additional Instructions: Dental: [facility] [phone] In 3 days 02/16/2024 EDT Additional Instructions: [...] available. Diagnostic Results No qualifying data available. [facility] Comment on above: Result Comment: Elec tronically Signed By: Ritesh Heath DO\.br\Date and Time Signed: 02/13/24 00:51 EDT ED Patient Summaryon 024 ED Patient Summary ED Patient Summary [place] [id number] Patient Discharge Instructions Person Information Name: ANTONIA NOYOLA Age: 39 Years Arrival Date: 02/13/2024 00:20:34 Discharge Diagnosis: Pain, dental Primary Care Physician: NONE, XXXX Provider Information Primary Provider: Ritesh Heath DO [employer] Assistant:None The exam and treatment you received in the Emergency Department were for an urgent problem and are not intended as complete care. It is important that you follow up with a doctor, nurse practitioner, or physician?s corporate legal assistant for ongoing care. If your [...] instructions: Follow-up Instructions: With: Address: When: Dental: [facility] [phone] In 3 days 02/16/2024 With: Address: When: Dental: [facility] [phone] In 3 days 02/16/2024 With: Address: When: Dental: [facility] [phone] In 3 days 02/16/2024 In the event that this physician does not participate in your insurance network, please consult with your insurance company to find a nearby participating provider. Patient Education Materials: Dental Pain A MESSAGE TO ALL PATIENTS REGARDING OPIOIDS PRESCRIPTION OPIOIDS: WHAT YOU NEED TO KNOW Prescription opioids can be used to help relieve newkuajn-[id number] pain and are often prescribed following a [...] care professi (more content not included)... Normal [facility] C REACTIVE PROTEINon 024 CRP [Mass/Vol] mg/L Normal 0.000-0.744 [facility] Comment on above: Performed By: #### C BCA, CMP #### [facility] ([id number]) [address] [place] [address] 22540 CBC AND AUTO DIFFon 01-27-20 24 ABSOLUTE BASOPHIL 0.1 X10E9/L Normal 0.0-0.2 [facility] Comment on above: Performed By: #### C HEATH CMP, 3040-3, 62856-5, 1985-10, #### [facility] ([id number]) [address] [place] [address] 20290 ABSOLUTE NEUTROPHIL 4.6 X10E9/L Normal 1.5-6.6 [facility] Comment on above: Performed By: #### C HEATH, CMP, 3040-3, 90264-5, 1985-10, #### [facility] ([id number]) [address] [place] [address] 36935 Basophils/100 WBC (Bld) 1.0 % Normal [facility] Comment on above: Performed By: #### C BCA, CMP, 3040-3, 39639-3, 1985-10, #### [facility] ([id number]) [address] [place] [address] 12700 Eosinophils (Bld) [#/Vol] 0.1 10*3/uL Normal 0.0-0.4 [facility] Comment on above: Performed By: #### C BCA, CMP, 3040-3, 14694-8, 1985-10, #### [facility] ([id number]) [address] [place] [address] 29513 Eosinophils/100 WBC (Bld) 1.8 % Normal [facility] Comment on above: Performed By: #### C HEATH, [facility], 0-3, 95163-9, 1985-10, #### [facility] ([id number]) [address] [place] [address] 19530 Erythrocyte distribution width (RBC) [Ratio] 17.1 % High 11.5-15.0 [facility] Comment on above: Performed By: #### C HEATH, [facility], 3039-3, , 1985-10, #### [facility] ([id number]) [address] [place] [address] 14591 Hematocrit (Bld) [Volume fraction] 34.8 % Low 35-47 [facility] Comment on above: Performed By: #### C HEATH, [facility], 3039-3, , 1985-10, #### [facility] ([id number]) [address] [place] [address] 14795 Hemoglobin (Bld) [Mass/Vol] 10.9 g/dL Low 11.7-15.5 [facility] Comment on above: Performed By: #### C HEATH, [facility], 3039-3, , 1985-10, #### [facility] ([id number]) [address] [place] [address] 33089 Lymphocytes (Bld) [#/Vol] 1.9 10*3/uL Normal 1.0-3.5 [facility] Comment on above: Performed By: #### C HEATH, CMP, 3040-3, , 1985-10, #### [facility] ([id number]) [address] [place] [address] 83142 Lymphocytes/100 WBC (Bld) 26.4 % Normal [facility] Comment on above: Performed By: #### C HEATH, CMP, 3039-08, , 1987-10, #### [facility] ([id number]) [address] [place] [address] 02041 MCH (RBC) [Entitic mass] 22.7 pg Low 27-34 [facility] Comment on above: Performed By: #### C BCA, CMP, 3039-08, , 1987-10, #### [facility] ([id number]) [address] [place] [address] 53443 MCHC (RBC) [Mass/Vol] 31.3 g/dL Low 32-36 [facility] Comment on above: Performed By: #### Leila JOE, CMP, 3039-08, , 1987-10, #### [facility] ([id number]) [address] [place] [address] 28556 MCV (RBC) [Entitic vol] 72 fL Low 80-100 P [facility] Comment on above: Performed By: #### C HEATH, CMP, 3039-08, , 1987-10, #### [facility] ([id number]) [address] [place] [address] 60971 Monocytes (Bld) [#/Vol] 0.4 10*3/uL Normal 0-0.9 [facility] Comment on above: Performed By: #### C BCA, CMP, 3039-08, , 1987-10, #### [facility] ([id number]) [address] [place] [address] 48656 Monocytes/100 WBC (Bld) 5.8 % Normal P [facility] Comment on above: Performed By: #### C BCA, CMP, 3039-08, , 1987-10, #### [facility] ([id number]) [address] [place] [address] 99005 Neutrophils/100 WBC (Bld) 65.0 % Normal [facility] Comment on above: Performed By: #### Leila JOE, CMP, 3039-3, , 1987-10, #### [facility] ([id number]) [address] [place] [address] 01248 Platelet mean volume (Bld) [Entitic vol] 7.6 fL Normal 7-12 [facility] Comment on above: Performed By: #### C HEATH, CMP, 3039-08, , 1987-10, #### [facility] ([id number]) [address] [place] [address] 92956 Platelets (Bld) [#/Vol] 532 10*3/uL High 150-450 [facility] Comment on above: Performed By: #### Leila JOE, CMP, 3039-08, , 1987-10, #### [facility] ([id number]) [address] [place] [address] 05480 RBC COUNT 4.80 X10E12/L Normal 3.80-5.20 [facility] Comment on above: Performed By: #### Leila JOE, CMP, 3039-08, , 1987-10, #### [facility] ([id number]) [address] [place] [address] 97937 WBC (Bld) [#/Vol] 7.0 10*3/uL Normal 4.0-11.0 [facility] Comment on above: Performed By: #### Leila JOE, CMP, 3039-, , 1987-10, #### [facility] ([id number]) [address] [place] [address] 16900 CHLAMYDIA/GC BY PCRon 2023 CHLAMYDIA/GC BY PCR [...] are dependent on adequate specimen collection. Normal [facility] Comment on above: Performed By: #### C HEATH, CMP #### [facility] ([id number]) [address] [place] [address] 06339 COMPREHENSIVE METABOLIC PANE Van 01-27-2024 Albumin [Mass/Vol] 4.3 g/dL Normal 3.2-5.3 [facility] Comment on above: Performed By: #### C HEATH CMP, 3040-3, 03846-6, 1987-10, #### [facility] ([id number]) [address] [place] [address] 55916 ALP [Catalytic activity/Vol] 76 U/L Normal 39-130 [facility] Comment on above: Performed By: #### C HEATH CMP, 3040-3, 04751-1, 1987-10, #### [facility] ([id number]) [address] [place] [address] 69803 ALT [Catalytic activity/Vol] 28 U/L Normal 0-31 [facility] Comment on above: Performed By: #### C HEATH CMP, 3040-3, 07558-2, 1987-10, #### [facility] ([id number]) [address] [place] [address] 29713 Anion gap [Moles/Vol] 7 mmol/L Normal 5-15 [facility] Comment on above: Performed By: #### C BCA CMP, 3040-3, 48197-9, 1987-10, #### [facility] ([id number]) [address] [place] [address] 18607 AST [Catalytic activity/Vol] 20 U/L Normal 0-41 [facility] Comment on above: Performed By: #### C BCA, CMP, 3040-3, 52732-6, 1987-10, #### [facility] ([id number]) [address] [place] [address] 30292 Bilirubin [Mass/Vol] 1.0 mg/dL Normal 0.3-1.2 [facility] Comment on above: Performed By: #### C BCA, CMP, 3040-3, 66682-4, 1987-10, #### [facility] ([id number]) [address] [place] [address] 82206 Calcium [Mass/Vol] 9.0 mg/dL Normal 8.5-10.5 [facility] Comment on above: Performed By: #### C BCA, CMP, 3040-3, 15490-9, 1987-10, #### [facility] ([id number]) [address] [place] [address] 81482 Chloride [Moles/Vol] 102 mmol/L Normal 98-109 [facility] Comment on above: Performed By: #### C BCA, CMP, 3040-3, 27373-2, 1987-10, #### [facility] ([id number]) [address] [place] [address] 52336 CO2 [Moles/Vol] 22 mmol/L Normal 22-32 [facility] Comment on above: Performed By: #### C BCA, CMP, 3040-3, 49947-2, 1987-10, #### [facility] ([id number]) [address] [place] [address] 15858 Creatinine [Mass/Vol] 0.76 mg/dL Normal 0.40-1.00 [facility] Comment on above: Result Comment: METH OD TRACEABLE TO IDMS STANDARD Performed By: #### C STEVE JOE, 0-3, 59613-9, 1987-10, #### [facility] ([id number]) [address] [place] [address] 38690 eGFR (CKD-EPI) NON-RACE DEPENDENT >90 Normal >59 [facility] Comment on above: Result Comment: Reported eGFR is based on the CKD-EPI 2020 equation that does not use a race coefficient. Performed By: #### C STEVE JOE, 3039-3, , 1987-10, #### [facility] ([id number]) [address] [place] [address] 10044 Glucose [Mass/Vol] 109 mg/dL High 65-99 [facility] Comment on above: Performed By: #### C STEVE JOE, 0-3, , 1987-10, #### [facility] ([id number]) [address] [place] [address] 64483 Potassium [Moles/Vol] 4.1 mmol/L Normal 3.5-5.0 [facility] Comment on above: Performed By: #### C STEVE JOE, 0-3, , 1987-10, #### [facility] ([id number]) [address] [place] [address] 36139 Protein [Mass/Vol] 8.2 g/dL High 6.0-8.0 [facility] Comment on above: Performed By: #### C STEVE JOE, 0-3, 46403-6, 1987-10, #### [facility] ([id number]) [address] [place] [address] 61101 Sodium [Moles/Vol] 131 mmol/L Low 134-146 [facility] Comment on above: Performed By: #### C BCA, CMP, 3040-3, 50935-7, 1987-10, #### [facility] ([id number]) [address] [place] [address] 40216 Urea nitrogen [Mass/Vol] 6 mg/dL Normal 5-23 [facility] Comment on above: Performed By: #### C HEATH, CMP, 3040-3, 27006-0, 1987-10, #### [facility] ([id number]) [address] [place] [address] 61696 HCG ( test) Ql (U)o n 01-27-2024 Beta HCG ( test) Ql (U) Negative Normal NEG [facility] Comment on above: Performed By: #### 2 106-3 #### [facility] ([id number]) [address] [place] [address] 86042 LIPASEon 01-27-2024 Lipase [Catalytic activity/Vol] 33 U/L Normal 17-40 [facility] Comment on above: Performed By: #### C BCA, CMP #### [facility] ([id number]) [address] [place] [address] 85149 Lactate (P arely) [Moles/Vol]o n 01-27-2024 LACTATE W/REFLEX 1.5 mmol/L Normal 0.4-2.0 [facility] Comment on above: Result Comment: Result did not trigger repeat Lactate, re-order if needed. Performed By: #### C BCA, CMP #### [facility] ([id number]) [address] [place] [address] 49121 MAGNESIUMon 01-27-2024 Magnesium [Mass/Vol] 2.0 mg/dL Normal 1.8-2.6 [facility] Comment on above: Performed By: #### C BCA, CMP #### [facility] ([id number]) [address] [place] [address] 43640 URINE CULTUREon 01-27-2024 Bacteria identified Cx Nom (U) CULTURE RESULTS <10,000 ORGANISMS/ML NORMAL URO GENITAL RASHID Normal [facility] Comment on above: Performed By: #### C BCA, CMP #### [facility] ([id number]) [address] [place] [address] 59596 URN MACROSCOPIC NURon 2023 BILIRUBIN AUDREY Negative Normal NEG [facility] Comment on above: Performed By: #### N UM #### [facility] ([id number]) [address] [place] [address] 17830 BLOOD/HGB AUDREY Negative Normal NEG [facility] Comment on above: Performed By: #### N UM #### [facility] ([id number]) [address] [place] [address] [place] [address] GLUCOSE AUDREY Negative Normal NEG [facility] Comment on above: Performed By: #### N UM #### [facility] ([id number]) [address] [place] [address] [place] [address] KETONES AUDREY Negative Normal NEG [facility] Comment on above: Performed By: #### N UM #### [facility] ([id number]) [address] [place] [address] [place] [address] LEUKOCYTE ESTERASE AUDREY Negative Normal NEG [facility] Comment on above: Performed By: #### N UM #### [facility] ([id number]) [address] [place] [address] 85929 NITRITE AUDREY Negative Normal NEG [facility] Comment on above: Performed By: #### N UM #### [facility] ([id number]) [address] [place] [address] 50381 PH AUDREY 8.5 Normal 5.0-8.5 [facility] Comment on above: Performed By: #### N UM #### [facility] ([id number]) [address] [place] [address] PROTEIN AUDREY Negative Normal NEG [facility] Comment on above: Performed By: #### N UM #### [facility] ([id number]) [address] [place] [address] 72946 SPECIFIC GRAVITY AUDREY 1.015 Normal 1.003-1.035 [facility] Comment on above: Performed By: #### N UM #### [facility] ([id number]) [address] [place] [address] 34635 UROBILINOGEN AUDREY 0.2 eu/dL Normal <1.1 [facility] Comment on above: Performed By: #### N UM #### [facility] ([id number]) [address] [place] [address] 85446 [place] PELVIC WITH TRANSVAGINAL AND DUPLEXon 01-27-2024 [...] Nixon MD on 01/27/2024 2:39 PM Normal [facility] VAGINITIS PANEL PCRon 2023 VAGINITIS PANEL PCR [...] clinical presentation to determine patient diagnosis. Normal [facility] Comment on above: Performed By: #### C HEATH, [facility] #### [facility] ([id number]) [address] [place] [address] sinus wo conon 11-25-2023 CT sinus wo con [facility] Main [address] [address] [address] Scan Report Signed Patient: Antonia Noyola MR#: [id number] 757 : 1985 Acct:[id number] Age/Sex: 38 / F ADM Date: 11/25/23 Loc: CT Room: Type: [facility] Attending Dr: Jennifer Duran DO Copies to: [...] Davi Figueroa M.D.11/25/2023 4:01 PM Dictation Location: [place] [address] Transcribed By: [facility] 11/25/23 1601 Dictated By: Davi Fiugeroa DO 11/25/23 1559 Signed By: 11/25/23 1601 Normal [facility] CBC AND AUTO DIFFon 10-25-19 ABSOLUTE BASOPHIL 0.1 X10E9/L Normal 0.0-0.2 [facility] Comment on above: Performed By: #### C BCA, CMP #### [facility] ([id number]) [address] [place] [address] 63112 ABSOLUTE NEUTROPHIL 4.1 X10E9/L Normal 1.5-6.6 [facility] Comment on above: Performed By: #### C BCA, CMP #### [facility] ([id number]) [address] [place] [address] 76316 Basophils/100 WBC (Bld) 0.9 % Normal [facility] Comment on above: Performed By: #### C BCA, CMP #### [facility] ([id number]) [address] [place] [address] 13013 Eosinophils (Bld) [#/Vol] 0.0 10*3/uL Normal 0.0-0.4 [facility] Comment on above: Performed By: #### C HEATH, CMP #### [facility] ([id number]) [address] [place] [address] 77486 Eosinophils/100 WBC (Bld) 0.1 % Normal [facility] Comment on above: Performed By: #### C HEATH, CMP #### [facility] ([id number]) [address] [place] [address] 02063 Erythrocyte distribution width (RBC) [Ratio] 17.9 % High 11.5-15.0 [facility] Comment on above: Performed By: #### C HEATH, CMP #### [facility] ([id number]) [address] [place] [address] 72797 Hematocrit (Bld) [Volume fraction] 34.6 % Low 35-47 [facility] Comment on above: Performed By: #### C HEATH, CMP #### [facility] ([id number]) [address] [place] [address] 17616 Hemoglobin (Bld) [Mass/Vol] 11.1 g/dL Low 11.7-15.5 [facility] Comment on above: Performed By: #### C HEATH, CMP #### [facility] ([id number]) [address] [place] [address] 87754 Lymphocytes (Bld) [#/Vol] 1.5 10*3/uL Normal 1.0-3.5 [facility] Comment on above: Performed By: #### C HEATH, CMP #### [facility] ([id number]) [address] [place] [address] 72613 Lymphocytes/100 WBC (Bld) 25.6 % Normal [facility] Comment on above: Performed By: #### C HEATH, CMP #### [facility] ([id number]) [address] [place] [address] MCH (RBC) [Entitic mass] 23.1 pg Low 27-34 [facility] Comment on above: Performed By: #### C HEATH, CMP #### [facility] ([id number]) [address] [place] [address] 75787 MCHC (RBC) [Mass/Vol] 32.1 g/dL Normal 32-36 [facility] Comment on above: Performed By: #### C BCA, CMP #### [facility] ([id number]) [address] [place] [address] 48822 MCV (RBC) [Entitic vol] 72 fL Low 80-100 [facility] Comment on above: Performed By: #### C HEATH, CMP #### [facility] ([id number]) [address] [place] [address] 73696 Monocytes (Bld) [#/Vol] 0.3 10*3/uL Normal 0-0.9 [facility] Comment on above: Performed By: #### C HEATH, CMP #### [facility] ([id number]) [address] [place] [address] 56124 Monocytes/100 WBC (Bld) 5.3 % Normal [facility] Comment on above: Performed By: #### C HEATH, CMP #### [facility] ([id number]) [address] [place] [address] 96925 Neutrophils/100 WBC (Bld) 68.1 % Normal [facility] Comment on above: Performed By: #### C HEATH, CMP #### [facility] ([id number]) [address] [place] [address] 20083 Platelet mean volume (Bld) [Entitic vol] 7.7 fL Normal 7-12 [facility] Comment on above: Performed By: #### C BCA, CMP #### [facility] ([id number]) [address] [place] [address] 62447 Platelets (Bld) [#/Vol] 532 10*3/uL High 150-450 [facility] Comment on above: Performed By: #### C BCA, CMP #### [facility] ([id number]) [address] [place] [address] 22146 RBC COUNT 4.82 X10E12/L Normal 3.80-5.20 [facility] Comment on above: Performed By: #### C BCA, CMP #### [facility] ([id number]) [address] [place] [address] 98510 WBC (Bld) [#/Vol] 6.0 10*3/uL Normal 4.0-11.0 [facility] Comment on above: Performed By: #### C HEATH, CMP #### [facility] ([id number]) [address] [place] [address] 40603 COMPREHENSIVE METABOLIC PANE [facility] 10-25-2023 Albumin [Mass/Vol] 4.7 g/dL Normal 3.2-5.3 [facility] Comment on above: Performed By: #### C BCA, CMP #### [facility] ([id number]) [address] [place] [address] 77002 ALP [Catalytic activity/Vol] 67 U/L Normal 39-130 [facility] Comment on above: Performed By: #### C BCA, CMP #### [facility] ([id number]) [address] [place] [address] 19535 ALT [Catalytic activity/Vol] 23 U/L Normal 0-31 [facility] Comment on above: Performed By: #### C BCA, CMP #### [facility] ([id number]) [address] [place] [address] 01110 Anion gap [Moles/Vol] 11 mmol/L Normal 5-15 [facility] Comment on above: Performed By: #### C BCA, CMP #### [facility] ([id number]) [address] [place] [address] 68235 AST [Catalytic activity/Vol] 20 U/L Normal 0-41 [facility] Comment on above: Performed By: #### C BCA, CMP #### [facility] ([id number]) [address] [place] [address] 70014 Bilirubin [Mass/Vol] 1.0 mg/dL Normal 0.3-1.2 [facility] Comment on above: Performed By: #### C BCA, CMP #### [facility] ([id number]) [address] [place] [address] 49045 Calcium [Mass/Vol] 9.6 mg/dL Normal 8.5-10.5 [facility] Comment on above: Performed By: #### C BCA, CMP #### [facility] ([id number]) [address] [place] [address] 80496 Chloride [Moles/Vol] 106 mmol/L Normal 98-109 [facility] Comment on above: Performed By: #### C BCA, CMP #### [facility] ([id number]) [address] [place] [address] 97719 CO2 [Moles/Vol] 20 mmol/L Low 22-32 [facility] Comment on above: Performed By: #### C BCA, CMP #### [facility] ([id number]) [address] [place] [address] 47414 Creatinine [Mass/Vol] 0.59 mg/dL Normal 0.40-1.00 [facility] Comment on above: Result Comment: METH OD TRACEABLE TO IDMS STANDARD Performed By: #### C BCA, CMP #### [facility] ([id number]) [address] [place] [address] 47916 eGFR (CKD-EPI) NON-RACE DEPENDENT >90 Normal >59 [facility] Comment on above: Result Comment: Reported eGFR is based on the CKD-EPI 2020 equation that does not use a race coefficient. Performed By: #### C BCA, CMP #### [facility] ([id number]) [address] [place] [address] 93262 Glucose [Mass/Vol] 124 mg/dL High 65-99 [facility] Comment on above: Performed By: #### C BCA, CMP #### [facility] ([id number]) [address] [place] [address] 11191 Potassium [Moles/Vol] 3.5 mmol/L Normal 3.5-5.0 [facility] Comment on above: Performed By: #### C BCA, CMP #### [facility] ([id number]) [address] [place] [address] 59006 Protein [Mass/Vol] 8.7 g/dL High 6.0-8.0 [facility] Comment on above: Performed By: #### C BCA, CMP #### [facility] ([id number]) [address] [place] [address] 80647 Sodium [Moles/Vol] 137 mmol/L Normal 134-146 [facility] Comment on above: Performed By: #### C BCA, CMP #### [facility] ([id number]) [address] [place] [address] 96172 Urea nitrogen [Mass/Vol] 6 mg/dL Normal 5-23 [facility] Comment on above: Performed By: #### C BCA, CMP #### [facility] ([id number]) [address] [place] [address] ABDOMEN AND PELVIS W CONT on [...] Fisher MD on 10/25/2023 7:39 PM Normal [facility] HCG ( test) Ql (U)o n 10-25-2023 Beta HCG ( test) Ql (U) Negative Normal NEG [facility] Comment on above: Performed By: #### 2 106-3 #### [facility] ([id number]) [address] [place] [address] 54511 URN MACROSCOPIC NURon 2023 BILIRUBIN AUDREY Negative Normal NEG [facility] Comment on above: Performed By: #### N UM #### [facility] ([id number]) [address] [place] [address] 06502 BLOOD/HGB AUDREY Negative Normal NEG [facility] Comment on above: Performed By: #### N UM #### [facility] ([id number]) [address] [place] [address] 35561 GLUCOSE AUDREY Negative Normal NEG [facility] Comment on above: Performed By: #### N UM #### [facility] ([id number]) [address] [place] [address] 51384 KETONES AUDREY 15 mg/dL Abnormal NEG [facility] Comment on above: Performed By: #### N UM #### [facility] ([id number]) [address] [place] [address] 69821 LEUKOCYTE ESTERASE AUDREY Trace Abnormal NEG Pr [facility] Comment on above: Performed By: #### N UM #### [facility] ([id number]) [address] [place] [address] 65418 NITRITE AUDREY Negative Normal NEG [facility] Comment on above: Performed By: #### N UM #### [facility] ([id number]) [address] [place] [address] 29271 PH AUDREY 7.0 Normal 5.0-8.5 [facility] Comment on above: Performed By: #### N UM #### [facility] ([id number]) [address] [place] [address] 10206 PROTEIN AUDREY Negative Normal NEG [facility] Comment on above: Performed By: #### N UM #### [facility] ([id number]) [address] [place] [address] 58513 SPECIFIC GRAVITY AUDREY 1.020 Normal 1.003-1.035 [facility] Comment on above: Performed By: #### N UM #### [facility] ([id number]) [address] [place] [address] 81916 UROBILINOGEN AUDREY 1.0 eu/dL Normal <1.1 [facility] Comment on above: Performed By: #### N UM #### [facility] ([id number]) [address] [place] [address] 71114 [place] PELVIC WITH TRANSVAGINAL AND DUPLEXon 05-14-2024 [...] Singh MD on 10/25/2023 6:17 PM Normal [facility] C Urineon 10-02-2023 Bacteria identified Cx Nom [...] Locations R1: This test was performed at: [employer] [address] [place] [address], [address]- , [place], Normal [facility] Comment on above: Performed By: #### 2 [id number] #### [facility] [address] [place] [address] BMPon 09-30-2023 Anion gap [Moles/Vol] 13 mmol/L Normal 6-16 [facility] Comment on above: Performed By: #### 2 [id number], [id number], [id number], [id number], [id number] ####[facility] [id number] [place] [address] Calcium [Mass/Vol] 9.1 mg/dL Normal 8.9-11.1 [facility] Comment on above: Performed By: #### 2 [id number], [id number], [id number], [id number], [id number] ####[facility] [id number] [place] [address] Chloride [Moles/Vol] 105 mmol/L Normal 101-111 [facility] Comment on above: Performed By: #### 2 [id number], [id number], [id number], [id number], [id number] ####[facility] [address] [place] [address] CO2 [Moles/Vol] 23 mmol/L Normal 21-31 [facility] Comment on above: Performed By: #### 2 [id number], [id number], [id number], [id number], [id number] ####[facility] [address] [place] [address] Creatinine [Mass/Vol] 0.8 mg/dL Normal 0.5-1.3 [facility] Comment on above: Performed By: #### 2 454266, 7712553, 16143069, 0955346, 5775148 ####[facility] [address] [place] [address] Glucose [Mass/Vol] 95 mg/dL Normal 55-199 [facility] Comment on above: Performed By: #### 2 413720, 2841016, 32291906, 5570262, 9693473 ####[facility] [address] [place] [address] Potassium [Moles/Vol] 3.1 mmol/L Low 3.5-5.3 [facility] Comment on above: Performed By: #### 2 994355, 7602437, 28203844, 4260170, 0670160 ####[facility] [address] [place] [address] Sodium [Moles/Vol] 138 mmol/L Normal 135-145 [facility] Comment on above: Performed By: #### 2 958480, 0258749, 99441310, 9201707, 6111161 ####[facility] [address] [place] [address] Urea nitrogen [Mass/Vol] 7 mg/dL Normal 5-21 [facility] Comment on above: Performed By: #### 2 979839, 5093626, 70417434, 1851877, 0694354 ####[facility] [address] [place] [address] Urea nitrogen/Creatinine [Mass ratio] 9 No Units Low 10-20 [facility] Comment on above: Performed By: #### 2 261693, 8171089, 34516268, 9303370, 0239106 ####[facility] [address] [place] [address] CBC w/ Auto Diffon 4 Basophils/100 WBC (Bld) 0.3 % Normal 0.0-2.0 [facility] Comment on above: Performed By: #### 2 689412, 8920652, 34478935, 4625846, 8487890 ####[address] [address] Basophils/Leukocytes Auto (Bld) [Pure # fraction] 0.0 E9/L Normal 0.0-0.2 [facility] Comment on above: Performed By: #### 2 512172, 6576535, 98473630, 5476418, 7882845 ####[facility] [address] [place] [address] Eosinophils (Bld) [#/Vol] 0.0 E9/L Normal 0.0-0.5 [facility] Comment on above: Performed By: #### 2 255744, 1424468, 78978592, 6919474, 9694454 ####[address] [address] Eosinophils/100 WBC (Bld) 0.4 % Normal 0.0-8.0 [facility] Comment on above: Performed By: #### 2 401696, 5254178, 64430749, 7376709, 9673135 ####[address] [address] Erythrocyte distribution width (RBC) [Ratio] 18.3 % High 10.9-14.2 [facility] Comment on above: Performed By: #### 2 581433, 0367143, 94301040, 7732372, 6774929 ####[address] [address] Hematocrit (Bld) [Volume fraction] 32.6 % Low 34.0-46.0 [facility] Comment on above: Performed By: #### 2 649562, 5760828, 28741180, 2409940, 7062482 ####[address] [address] Hemoglobin (Bld) [Mass/Vol] 10.3 g/dL Low 12.0-16.0 [facility] Comment on above: Performed By: #### 2 723616, 8882642, 55884018, 9831909, 8578671 ####[address] [address] Lymphocytes (Bld) [#/Vol] 4.1 E9/L High 1.0-4.0 [facility] Comment on above: Performed By: #### 2 503531, 9145516, 09969329, 9671759, 2020455 ####[facility] [address] [place] [address] Lymphocytes/100 WBC (Bld) 39.5 % Normal 14.0-50.0 [facility] Comment on above: Performed By: #### 2 049502, 1536628, 12132388, 2427548, 8905867 ####[address] [address] MCH (RBC) [Entitic mass] 23.7 pg Low 27.0-34.0 [facility] Comment on above: Performed By: #### 2 686239, 4098516, 32501952, 8784878, 5284965 ####[address] [address] MCHC (RBC) [Mass/Vol] 31.7 g/dL Normal 31.4-36.0 [facility] Comment on above: Performed By: #### 2 998013, 9075230, 73500019, 4995927, 7995804 ####[address] [address] MCV (RBC) [Entitic vol] 74.9 fL Low 80.0-100.0 [facility] Comment on above: Performed By: #### 2 146016, 8345189, 20092320, 1683787, 1339463 ####[place] [address] Monocytes (Bld) [#/Vol] 0.7 E9/L Normal 0.2-1.0 [facility] Comment on above: Performed By: #### 2 775210, 6243096, 33250560, 2178842, 1407648 ####[address] [address] Neutrophils (Bld) [#/Vol] 5.4 E9/L Normal 2.0-7.5 [facility] Comment on above: Performed By: #### 2 172148, 9145276, 22964057, 1243067, 5871372 ####[place] [address] [place] [address] Neutrophils/100 WBC (Bld) 53.1 % Normal 36.0-75.0 [facility] Comment on above: Performed By: #### 2 165413, 8356319, 11015139, 3401193, 1228531 ####[place] [address] [place] [address] Platelet 476.0 E9/L Normal 150.0-500.0 [facility] Comment on above: Performed By: #### 2 647647, 7034743, 73496263, 3698093, 6251165 ####[address] [address] Platelet mean volume (Bld) [Entitic vol] 7.7 fL Normal 6.4-10.8 [facility] Comment on above: Performed By: #### 2 213606, 3282469, 35964413, 3447764, 6078897 ####[address] [address] RBC (Bld) [#/Vol] 4.3 E12/L Normal 4.3-5.9 [facility] Comment on above: Performed By: #### 2 658957, 4063733, 18458847, 7673607, 5174156 ####[address] [address] WBC corrected for nucl RBC Auto (Bld) [#/Vol] 10.3 E9/L Normal 4.0-11.0 [facility] Comment on above: Performed By: #### 2 703962, 8199392, 87923396, 5925698, 4106746 ####[address] [address] CHEMISTRYOrdered By: SYSTEM SYSTEM on 09-30-2023 Albumin [...] Remisol Chem Discharge Instructionson Discharge Instructions [id number]. 00TIFF Normal [facility] ED Clinical Summaryon 2023 ED Clinical Summary [place] [id number] ED Clinical Summary Person Information Name: ANTONIA NOYOLA/Michelle Age: 38 Years : 1985 Sex: Female Language: Lebanese PCP: NONE, XXXX Marital Status: Visit Id: [...] 02:15:05 ADDRESS: [address] [place] [id number] PHYS DOC NOTES: MEDICAL INFORMATION: Prescriptions Given: [...] Follow up: With: Address: When: Rose Royal [address] [place] [address], [address] [address] Business (1) In 3 days 10/03/2023 DIAGNOSIS: AP (abdominal pain); Ovarian cyst Normal [facility] ED Note-Physicianon 09-30-19 ED Note-Physician Basic [...] taking oral tramadol, Toradol, Bentyl, and a [place] at home and has had no significant relief. She does have some nausea but no vomiting. No change in bowel movements. No urinary symptoms. She reports that she has had multiple ovarian cysts and did schedule a [employer] appointment for possible hysterectomy but that [...] and Complexity of Problems Differential Diagnosis: [] [facility] Data External documents reviewed: N/A My [...] of 3.1 but is otherwise overall reassuring. 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 Royal and another [employer] in the area to see if [...] mg/2 mL (more content not included)... Normal [facility] Comment on above: Result Comment: Elec [...] Follow these instructions at home: ? Take grzf-kwc-kynkejj and prescription medicines only as told by [...] Reviewed: 11/06/2020 Elsevier Patient Education ? 2022 [employer] Normal [facility] ED Patient Summaryon 024 ED Patient Summary [address] [address] Patient Discharge Instructions Person Information Name: ANTONIA NOYOLA Age: 38 Years Arrival Date: 09/29/2023 23:38:37 Discharge Diagnosis: AP (abdominal pain); Ovarian cyst Primary Care Physician: SHAZIA, XXXX Provider Information Primary Provider: Ritesh Heath DO [employer] Assistant:Shazia The exam and treatment you received in the Emergency Department were for an urgent problem and are not intended as complete care. It is important that you follow up with a doctor, nurse practitioner, or physician?s corporate legal assistant for ongoing care. If your [...] Follow-up Instructions: With: Address: When: Rose Royal [address] [place] [address], [place] [address], [place] [address] Business (1) In 3 days 10/03/2023 In the event that this physician does not participate in your insurance network, please consult with your insurance company to find a nearby participating provider. Patient Education Materials: Ovarian Cyst A MESSAGE TO ALL PATIENTS REGARDING OPIOIDS PRESCRIPTION OPIOIDS: WHAT YOU NEED TO KNOW Prescription opioids can be used to help relieve ktwpfwdz-yz-zkmcxq pain and are often prescribed following a [...] be struggling with addiction, tell your health childcare provider and ask for guidance or call [facility]?S National Helpline at 6-292-491-HELP. v Source: [place] Department o (more content not included)... Normal [facility] HEMATOLOGYOrdered By: SYSTEM SYSTEM on 09-30-2023 [...] 09-30-2023 Albumin [Mass/Vol] 4.4 g/dL Normal 3.3-5.0 [facility] Comment on above: Performed By: #### 2 129279, 6032342, 89497119, 7654866, 2410639 ####[facility] [address] [place] [address] Albumin/Globulin (S) [Mass conc ratio] 1.5 Normal 1.1-2.2 [facility] Comment on above: Performed By: #### 2 778658, 8201339, 61371274, 3252359, 2140155 ####[facility] [address] [place] [address] ALP [Catalytic activity/Vol] 64 Int._Unit/L Normal 21-98 [facility] Comment on above: Performed By: #### 2 327112, 2747930, 27500854, 8431050, 2954105 ####[facility] [address] [place] [address] ALT No additional P-5'-P [Catalytic activity/Vol] 9 Int._Unit/L Normal 6-46 [facility] Comment on above: Performed By: #### 2 496554, 6857446, 83261563, 6008617, 2876203 ####[facility] [address] [place], [place] [address] AST [Catalytic activity/Vol] 12 Int._Unit/L Normal 5-43 [facility] Comment on above: Performed By: #### 2 519867, 7692066, 87159434, 7631853, 9224990 ####[facility] [address] [place] [address] Bilirubin [Mass/Vol] 0.2 mg/dL Normal 0.0-1.1 [facility] Comment on above: Performed By: #### 2 679995, 8997856, 99243398, 0740238, 3433685 ####[place] [address] Bilirubin.direct [Mass/Vol] 0.0 mg/dL Normal 0.0-0.4 [facility] Comment on above: Performed By: #### 2 621807, 1392243, 03516335, 6284567, 3227219 ####[place] 8764357 Bilirubin.indirect [Mass or moles/Vol] 0.2 mg/dL Normal 0.1-0.9 [facility] Comment on above: Performed By: #### 2 826280, 8897505, 26699486, 4496315, 9948945 ####[address] [address] Globulin (S) [Mass/Vol] 3.0 g/dL Normal 1.4-4.0 [facility] Comment on above: Performed By: #### 2 424109, 9119696, 89544645, 9378200, 7484721 ####[facility] [address] [place] [address] Protein [Mass/Vol] 7.4 g/dL Normal 6.0-7.8 [facility] Comment on above: Performed By: #### 2 879812, 1559439, 02207261, 5699677, 3282174 ####[facility] [address] [place] [address] Lipase Levelon 09-30-2023 Lipase [Catalytic activity/Vol] 61 U/L High 13-58 [facility] Comment on above: Performed By: #### 2 963785, 6883777, 87029357, 5947402, 6241030 ####[facility] [address] [place] [address] SEROLOGYOrdered By: Ariadne Sheehan on 09-30-2023 HCG.beta subunit (U) [Moles/Vol] Negative Normal [facility] Man Sero U BetaHcg Qualon 09-30-2023 HCG.beta subunit (U) [Moles/Vol] Negative Normal [facility] Comment on above: Performed By: #### 2 0850738 ####[facility] [address] [place] [address] UA with Cult Rflxon 09-30-19 24 Bacteria Auto Ql (U) Trace Normal Trace [facility] Comment on above: Performed By: #### 2 202428 #### [facility] [address] [place] [address] Bilirubin Ql (U) Negative Normal Negative [facility] Comment on above: Performed By: #### 2 865769 #### [facility] [address] [place] [address] Clarity (U) Clear Normal Clear [facility] Comment on above: Performed By: #### 2 829464 #### [facility] [address] [place] [address] Color (U) Light-Yellow Normal Yellow [facility] Comment on above: Result Comment: Micr oscopic readings are only performed on those samples that meet specific criteria set forth by [facility]. Performed By: #### 2 070598 #### [facility] [address] [place] [address] Epithelial cells.squamous Auto (Urine sed) [#/Area] 3-4 Abnormal 0-2 [facility] Comment on above: Performed By: #### 2 827572 #### [facility] [address] [place] [address] Glucose Ql (U) Negative Normal Negative [facility] Comment on above: Performed By: #### 2 836028 #### [facility] [address] [place] [address] Hemoglobin Auto test strip (U) [Mass/Vol] Trace Abnormal Negative [facility] Comment on above: Performed By: #### 2 305471 #### [facility] [address] [place] [address] Ketones Auto test strip Ql (U) Negative Normal Negative [facility] Comment on above: Performed By: #### 2 935028 #### [facility] [address] [place] [address] Leukocyte esterase Auto test strip Ql (U) 75 Bertrand/uL Abnormal Negative [facility] Comment on above: Performed By: #### 2 564751 #### [facility] [address] [place] [address] Mucus Auto Ql (U) Negative Normal Negative [facility] Comment on above: Performed By: #### 2 101862 #### [facility] [address] [place] [address] Nitrite Auto test strip Ql (U) Negative Normal Negative [facility] Comment on above: Performed By: #### 2 376309 #### [facility] [address] [place] [address] pH (U) 5.5 [pH] Invalid Interpretation Code 5.0-9.0 [facility] Comment on above: Performed By: #### 2 422354 #### [facility] [address] [place] [address] Protein Ql (U) Negative Normal Negative [facility] Comment on above: Performed By: #### 2 168659 #### [facility] [address] [place] [address] RBC Ql (U) 4-20 Abnormal 0-3 [facility] Comment on above: Performed By: #### 2 618317 #### [facility] [address] [place] [address] Specific gravity (U) [Rel density] 1.017 Invalid Interpretation Code 1.005-1.030 [facility] Comment on above: Performed By: #### 2 885600 #### [facility] [address] [place] [address] Urobilinogen (U) [Mass/Vol] Negative Normal Negative [facility] Comment on above: Performed By: #### 2 498843 #### [facility] [address] [place] [address] WBC Auto (Urine sed) [#/Area] 0-5 Normal 0-5 [facility] Comment on above: Performed By: #### 2 633539 #### [facility] [address] [place] [address] URINALYSISOrdered By: SYSTEM SYSTEM on 09-30-2023 Bacteria [...] that meet specific criteria set forth by [facility]. Epithelial cells.squamous Auto (Urine sed) [...] Desc Clean Catch (09/30/23 12:08 AM) Normal [facility] UA Auto SS Work Phone: US Doppler [...] MD Transcribed by: MILLIE Technologist: GERDA Miller [facility] US Pelvis Non-OB Completeon 09-30-2023 US [...] Transvaginal Ultrasound Performed Uterus Position Anteverted Normal [facility] US Transvaginal Non-OBon US Transvaginal Non-OB Exam Date/Time: 09/30/2023 02:03 EDT Reason for Exam: pssible torsion, known large cyst;Other (please specify) Report PLEASE SEE US Pelvis Non-OB Complete REPORT DATED: 09/30/2023. Ordering Provider: Ivana, Ritesh FINAL REPORT Dictated: 09/30/2023 4:11 am Harvey Leslie MD Signed (Electronic Signature): 09/30/2023 4:11 am Signed by: Harvey Leslie MD Transcribed by: MILLIE Technologist: GERDA Normal [facility] eGFRon 09-30-2023 eGFR 97 mL/min/1.73 m2 Normal >=59 [facility] Comment on above: Order Comment: Order added by Discern Expert. Performed By: #### 2 613822, 4841633, 98262741, 2734047, 0997050 ####[facility] [address] [place] [address] Consent for Treatmenton 09-11 Consent for Treatment [id number] 0TIFF [facility] UA with Cult Rflxon 09-29-19 Type of Urine collection method Clean Catch [facility] Comment on above: Performed By: #### 2 302185 #### [facility] [address] [place] [address] ED Clinical Summaryon 2023 ED Clinical Summary [address] [address] ED Clinical Summary Person Information Name: ANTONIA NOYOLA/[facility] [place] [facility] Age: 38 Years : 1985 Sex: Female Language: Lebanese PCP: NONE, XXXX Marital Status: Visit Id: [...] 18:13:56 09/26/2023 18:13:56 09/26/2023 18:13:56 ADDRESS: [address] [place] [id number] PHYS DOC NOTES: MEDICAL INFORMATION: Prescriptions Given: New Medications [facility]/pharmacy #[id number], [address], [place] [id number], [phone] diflunisal (diflunisal 500 mg Tab) 1 Tablets [...] INFORMATION: Instructions: Follow up: With: Address: When: [facility] [place] [address] Business (1) In 3 days 09/29/2023 With: Address: [facility] [address] [place] [address] , [place], [place] [id number] Business (1) In 3 days 09/29/2023 With: Address: When: XXXX NONE , [place] In 3 days DIAGNOSIS: Abdominal pain; Constipation; Ovarian cyst Normal [facility] ED Patient Education Noteon 09-27-2023 ED Patient Education Note Normal [facility] ED Patient Summaryon 024 ED Patient Summary [address] [address] Patient Discharge Instructions Person Information Name: ANTONIA NOYOLA Age: 38 Years Arrival Date: 09/26/2023 13:54:18 Discharge Diagnosis: Abdominal pain; Constipation; Ovarian cyst Primary Care Physician: NONE, XXXX Provider Information Primary Provider: Konstantin Penny DO [employer] Assistant:None The exam and treatment you received in the Emergency Department were for an urgent problem and are not intended as complete care. It is important that you follow up with a doctor, nurse practitioner, or physician?s corporate legal assistant for ongoing care. If your symptoms become worse or you do not improve as expected and you are unable to reach your usual health care provider, you should return to the Emergency Department. We are available 24 hours a day. ANTONIA NOYOLA has been given the following list of patient education materials, prescriptions and follow-up instructions: Follow-up Instructions: With: Address: When: [facility] [place] [address] Business (1) In 3 days 09/29/2023 With: Address: When: [facility], [address] [place] [address] [place] [address] Business (1) In [...] opioids can be used to help relieve cervkqyh-cd-bwpqyl pain and are often prescribed following a [...] and overdose. (more content not included)... Normal [facility] B hCG Qualon 09-26-2023 Beta HCG ( test) Ql Negative Normal [facility] Comment on above: Order Comment: FER dubois attempting lab work from IV start per Pt request. Phleb on standby if unable to get labs, [id number] 09/26/2023 14:42:36 EDT Performed By: #### 2 1108222, 16788417, 8183887, 9211195, 0521991 ####[facility] [address] [place] [address] CBC w/ Auto Diffon 4 Anisocytosis Ql (Bld) PRESENT Invalid Interpretation Code [facility] Comment on above: Performed By: #### 2 5122580, 95927317, 9780198, 3337886, 0345723 ####[facility] [address] [place] [address] Basophils/100 WBC (Bld) 0.8 % Normal 0.0-2.0 [facility] Comment on above: Performed By: #### 2 1105018, 93124606, 0529919, 0373004, 9001227 ####[facility] [address] [place] [address] Basophils/Leukocytes Auto (Bld) [Pure # fraction] 0.1 E9/L Normal 0.0-0.2 [facility] Comment on above: Performed By: #### 2 6768849, 05429824, 8920035, 9497057, 0521387 ####[address] [address] Eosinophils (Bld) [#/Vol] 0.0 E9/L Normal 0.0-0.5 [facility] Comment on above: Performed By: #### 2 8140004, 83108641, 3152607, 5701619, 8770841 ####[address] [address] Eosinophils/100 WBC (Bld) 0.0 % Normal 0.0-8.0 [facility] Comment on above: Performed By: #### 2 0046654, 08362802, 6361238, 7122033, 4800041 ####[address] [address] Hypochromia Auto Ql (Bld) PRESENT Invalid Interpretation Code [facility] Comment on above: Performed By: #### 2 5962723, 11088543, 8307102, 3103131, 0489530 ####[address] [address] Lymphocytes (Bld) [#/Vol] 1.6 E9/L Normal 1.0-4.0 [facility] Comment on above: Performed By: #### 2 1967334, 02773681, 9188212, 9797553, 9702861 ####[address] [address] Lymphocytes/100 WBC (Bld) 22.7 % Normal 14.0-50.0 [facility] Comment on above: Performed By: #### 2 8514031, 57451243, 4998856, 1587949, 6360240 ####[address] [address] Microcytes Ql (Bld) PRESENT Invalid Interpretation Code [facility] Comment on above: Performed By: #### 2 3637694, 23800527, 6217159, 8608482, 2379806 ####[facility] [address] [place] [address] Monocytes (Bld) [#/Vol] 0.3 E9/L Normal 0.2-1.0 [facility] Comment on above: Performed By: #### 2 2390850, 15084899, 6136752, 4711562, 3038272 ####[address] [address] Neutrophils (Bld) [#/Vol] 5.1 E9/L Normal 2.0-7.5 [facility] Comment on above: Performed By: #### 2 7178723, 44712140, 1252086, 6340965, 3483499 ####[place] [address]357 Neutrophils/100 WBC (Bld) 71.6 % Normal 36.0-75.0 [facility] Comment on above: Performed By: #### 2 3348256, 16468042, 8898649, 4669004, 7716424 ####[place] [address]64357 Erythrocyte distribution width (RBC) [Ratio] 17.8 % High 10.9-14.2 [facility] Comment on above: Performed By: #### 2 7356485, 98429528, 1606387, 8862392, 8774701 ####[address] [address] Hematocrit (Bld) [Volume fraction] 36.2 % Normal 34.0-46.0 [facility] Comment on above: Performed By: #### 2 8490281, 05213945, 8003753, 0569245, 0647362 ####[address] [address] Hemoglobin (Bld) [Mass/Vol] 11.2 g/dL Low 12.0-16.0 [facility] Comment on above: Performed By: #### 2 4939407, 42425708, 2575690, 0331871, 7354959 ####[facility] [address] [place] [address] MCH (RBC) [Entitic mass] 23.2 pg Low 27.0-34.0 [facility] Comment on above: Performed By: #### 2 5068176, 59101502, 7642957, 2346609, 2934566 ####[facility] [address] [place], [place] [address] MCHC (RBC) [Mass/Vol] 31.0 g/dL Low 31.4-36.0 [facility] Comment on above: Performed By: #### 2 2115370, 16116416, 5803351, 7429685, 7821070 ####[place] [address]64357 MCV (RBC) [Entitic vol] 74.9 fL Low 80.0-100.0 [facility] Comment on above: Performed By: #### 2 3598680, 04414600, 0660773, 4524076, 3259651 ####[facility] [address] [place] [address] Platelet mean volume (Bld) [Entitic vol] 7.5 fL Normal 6.4-10.8 [facility] Comment on above: Performed By: #### 2 7679150, 32314733, 4752866, 4913321, 3905864 ####[facility] [address] [place] [address] Platelets (Bld) [#/Vol] 461.0 E9/L Normal 150.0-500.0 [facility] Comment on above: Performed By: #### 2 7893435, 88508196, 8202556, 2797157, 1847174 ####[address] [address] RBC (Bld) [#/Vol] 4.8 E12/L Normal 4.3-5.9 [facility] Comment on above: Performed By: #### 2 7287752, 46424183, 9839183, 1190054, 8436410 ####[facility] [address] [place] [address] WBC corrected for nucl RBC Auto (Bld) [#/Vol] 7.1 E9/L Normal 4.0-11.0 [facility] Comment on above: Performed By: #### 2 [id number], [id number], 0681450, 2815279, 9031298 ####[facility] [address] [place] [address] CHEMISTRYOrdered By: SYSTEM SYSTEM on 09-26-2023 Amphetamines [...] 09-26-2023 Albumin [Mass/Vol] 4.7 g/dL Normal 3.3-5.0 [facility] Comment on above: Performed By: #### 2 [id number], [id number], 5288843, 1223511, 3046612 ####[facility] [address] [place] [address] Albumin/Globulin (S) [Mass conc ratio] 1.3 Normal 1.1-2.2 [facility] Comment on above: Performed By: #### 2 4957716, 15829630, 8906358, 5252506, 7578552 ####[address] [place] [address] ALP [Catalytic activity/Vol] 61 Int._Unit/L Normal 21-98 [facility] Comment on above: Performed By: #### 2 6924814, 56249946, 2471243, 9146326, 1942478 ####[facility] [address] [place] [address] ALT No additional P-5'-P [Catalytic activity/Vol] 11 Int._Unit/L Normal 6-46 [facility] Comment on above: Performed By: #### 2 4925907, 81947890, 9896656, 4909649, 5387365 ####[facility] [address] [place] [address] Anion gap [Moles/Vol] 15 mmol/L Normal 6-16 [facility] Comment on above: Performed By: #### 2 1384094, 00575501, 3300593, 5719149, 4461573 ####[facility] [address] [place] [address] AST [Catalytic activity/Vol] 16 Int._Unit/L Normal 5-43 [facility] Comment on above: Performed By: #### 2 6349222, 44337657, 8298201, 6468979, 0087507 ####[facility] [address] [place] [address] Bilirubin [Mass/Vol] 0.8 mg/dL Normal 0.0-1.1 [facility] Comment on above: Performed By: #### 2 7875733, 00725334, 9338481, 1308704, 8049430 ####[address] [address] Calcium [Mass/Vol] 9.7 mg/dL Normal 8.9-11.1 [facility] Comment on above: Performed By: #### 2 8193977, 66873561, 6088735, 3904193, 1513068 ####[facility] [address] [place] [address] Chloride [Moles/Vol] 107 mmol/L Normal 101-111 [facility] Comment on above: Performed By: #### 2 9739910, 56520002, 5465480, 3223579, 4144733 ####[address] [place] [address] CO2 [Moles/Vol] 20 mmol/L Low 21-31 [facility] Comment on above: Performed By: #### 2 1975326, 62856933, 7203771, 5008724, 8456598 ####[facility] [address] [place] [address] Creatinine [Mass/Vol] 0.7 mg/dL Normal 0.5-1.3 [facility] Comment on above: Performed By: #### 2 7225595, 34209935, 1907572, 3689873, 0285950 ####[facility] [address] [place] [address] Globulin (S) [Mass/Vol] 3.6 g/dL Normal 1.4-4.0 [facility] Comment on above: Performed By: #### 2 8940079, 02151622, 1981863, 2144356, 6352227 ####[facility] [address] [place] [address] Glucose [Mass/Vol] 120 mg/dL Normal 55-199 [facility] Comment on above: Performed By: #### 2 8789916, 82338871, 6124076, 2182683, 9496358 ####[facility] [address] [place] [address] Potassium [Moles/Vol] 3.8 mmol/L Normal 3.5-5.3 [facility] Comment on above: Performed By: #### 2 6934757, 75047557, 2013775, 0243795, 7581677 ####[facility] [address] [place] [address] Protein [Mass/Vol] 8.3 g/dL High 6.0-7.8 [facility] Comment on above: Performed By: #### 2 9160773, 49953349, 4971630, 7930047, 0206231 ####[facility] [address] [place] [address] Sodium [Moles/Vol] 138 mmol/L Normal 135-145 [facility] Comment on above: Performed By: #### 2 0792638, 18307932, 0756232, 9443972, 9317132 ####[facility] [address] [place] [address] Urea nitrogen [Mass/Vol] 5 mg/dL Normal 5-21 [facility] Comment on above: Performed By: #### 2 7516577, 61147735, 8200993, 7858809, 1343105 ####[facility] [address] [place] [address] Urea nitrogen/Creatinine [Mass ratio] 7 No Units Low 10-20 [facility] Comment on above: Performed By: #### 2 0007142, 69308097, 9775704, 5297905, 1171583 ####[facility] [address] [place] [address] CT Abdomen/Pelvis w/ Contras maxi 09-26-2023 CT [...] FINAL REPORT Dictated: 09/26/2023 4:28 pm Danny cMclain M.D. Signed (Electronic Signature): 09/26/2023 4:28 pm Signed by: Danny Mcclain M.D. Transcribed by: MILLEI Technologist: ALICIA Technical Comments GFR (mL/min/1/73m2) na Contrast: Isovue 300 Contrast amount in ml's: 100 Normal [facility] Consent for Treatmenton 09-11 Consent for Treatment [id number] 0TIFF Normal [facility] Discharge Instructionson Discharge Instructions [id number] 0TIFF Normal [facility] ED Note-Physicianon 09-26-19 ED Note-Physician Basic Information Time Seen: Konstantin Penny DO 09/26/2023 14:25 Chief Complaint c/o nausea and left abdominal pain radiating to back that started back up yesterday. took bentyl ibuprofen and tramadol around noon with no relief. recent admission to [facility] a week ago for intusseption, ovarian cyst, elevated lactic. denies V/D History of Present Illness 38 year old female presents to the emergency department with chief complaint of abdominal pain. patient states this pain started yesterday and has associated nausea without vomiting. Patient states she was admitted 10 days ago to [facility] for intussusception, ovarian cysts, and elevated lactic. She states she was admitted for one day and that she had another CT done that showed resolution of the intussusception. She reports she was discharged home but went back to [facility] yesterday for similar pain. She reports [...] and noted. We did review workup from [facility] just recently. Risks and benefits of obtaining [...] differential diagnosis. We did refer her to [facility] for follow-up. Patient also was found to have some constipation on CT therefore we talked about dietary and lifestyle modifications and I did prescribe MiraLAX here as well. She is to follow-up in the outpatient setting return to ER symptoms should change or worsen she is comfortable with this plan. I, Dr. Penny had a onfy-yp-mdpn interaction with the patient. I personally performed [...] q12hr, # 20 tab(s), Refills(s) 0, [id number] 165, cm, 09/26/23 14:18:00 EDT, Height/Length Dosing, 81.2, kg, 09/26/23 14:18:00 EDT, Weight Dosing hyoscyamine, 0.125 mg = 1 tab(s), Oral, QID, X 5 day(s), # 20 tab(s), Refills(s) 0, Pharmacy: [facility]/pharmacy #[id number], 165, cm, 09/26/23 14:18:00 EDT, Height/Length Dosing, 81.2, kg, 09/26/23 14:18:00 EDT, Weight Dosing ketorolac, 30 mg = 1 mL, Injection, IV, Once, Stop date 09/26/23 15:40:00 EDT, STAT, Start date 09/26/23 15:40:00 EDT, 09/26/23 15:40:00 EDT polyethylene glycol 3350, 17 gm, Oral, Daily, X 7 day(s), # 119 gm, Refills(s) 0, [id number], 165, cm, 09/26/23 14:18:00 EDT, (more content not included)... [facility] Comment on above: Result Comment: Elec tronically [...] Lipase [Catalytic activity/Vol] 18 U/L Normal 13-58 [facility] Comment on above: Performed By: #### 2 2657087, 66630602, 0715066, 6994205, 0524495 ####[facility] [address] [place] [address] Outside Recordson 09-26-2023 Outside Records [id number] Normal [facility] SEROLOGYOrdered By: Nohemi Taylor on 09-26-2023 Beta HCG ( test) Ql Negative (09/26/23 2:45 PM) Normal [facility] Sero U Drug Screenon 09-26-2023 Amphetamines Screen method >1000 ng/mL Ql (U) Negative Normal NEGATIVE [facility] Comment on above: Result Comment: Nega tive Cutoff: <1000 ng/mL Performed By: #### 2 074416 #### [facility] [address] [place] [address] Barbiturates Screen Ql (U) Negative Normal NEGATIVE [facility] Comment on above: Result Comment: Nega tive Cutoff: <200 ng/mL Performed By: #### 2 011965 #### [facility] [address] [place] [address] Benzodiazepines Ql (U) Negative Normal NEGATIVE [facility] Comment on above: Result Comment: Nega tive Cutoff: <200 ng/mL Performed By: #### 2 680928 #### [facility] [address] [place] [address] Cannabinoids Screen Ql (U) Negative Normal NEGATIVE [facility] Comment on above: Result Comment: Nega tive Cutoff: <50 ng/mL Performed By: #### 2 504927 #### [facility] [address] [place] [address] Cocaine Ql (U) Negative Normal NEGATIVE [facility] Comment on above: Result Comment: Nega tive Cutoff: <300 ng/mL Performed By: #### 2 813449 #### [facility] [address] [place] [address] Opiates Screen Ql (U) Negative Normal NEGATIVE [facility] Comment on above: Result Comment: Nega tive Cutoff: <300 ng/mL Performed By: #### 2 535170 #### [facility] [address] [place] [address] Phencyclidine Screen method >25 ng/mL Ql (U) Negative Normal NEGATIVE [facility] Comment on above: Result Comment: Nega tive Cutoff: <25 ng/mL These drug screen results are to be used for medical (i.e., treatment) purposes only. Unconfirmed drug screening results must not be used for non-medical purposes (e.g., employment testing, legal testing). Performed By: #### 2 186553 #### [facility] [address] [place] [address] U Fentanyl Negative Normal NEGATIVE [facility] Comment on above: Result Comment: Nega tive Cutoff: <5 ng/mL These drug screen results are to be used for medical (i.e., treatment) purposes only. Unconfirmed drug screening results must not be used for non-medical purposes (e.g., employment testing, legal testing). Performed By: #### 2 [id number] #### [facility] [address] [place] [address] UA with Cult Rflxon 09-26-19 24 Bilirubin Ql (U) Negative Normal Negative [facility] Comment on above: Performed By: #### 4 [id number] #### [facility] [address] [place] [address] Clarity (U) Clear Normal Clear [facility] Comment on above: Performed By: #### 4 [id number] #### [facility] [address] [place] [address] Color (U) Colorless Abnormal Yellow [facility] Comment on above: Result Comment: Micr oscopic readings are only performed on those samples that meet specific criteria set forth by [facility]. Performed By: #### 4 [id number] #### [facility] [address] [place] [address] Glucose Ql (U) Negative Normal Negative [facility] Comment on above: Performed By: #### 4 [id number] #### [facility] [address] [place] [address] Hemoglobin Auto test strip (U) [Mass/Vol] Negative Normal Negative [facility] Comment on above: Performed By: #### 4 [id number] #### [facility] [address] [place] [address] Ketones Auto test strip Ql (U) Negative Normal Negative [facility] Comment on above: Performed By: #### 4 [id number] #### [facility] [address] [place] [address] Leukocyte esterase Auto test strip Ql (U) Negative Normal Negative [facility] Comment on above: Performed By: #### 4 [id number] #### [facility] [address] [place] [address] Nitrite Auto test strip Ql (U) Negative Normal Negative [facility] Comment on above: Performed By: #### 4 [id number] #### [facility] [address] [place] [address] pH (U) 6.0 [pH] Invalid Interpretation Code 5.0-9.0 [facility] Comment on above: Performed By: #### 4 [id number] #### [facility] [address] [place] [address] Protein Ql (U) Negative Normal Negative [facility] Comment on above: Performed By: #### 4 [id number] #### [facility] [address] [place] [address] Specific gravity (U) [Rel density] 1.004 Invalid Interpretation Code 1.005-1.030 [facility] Comment on above: Performed By: #### 4 [id number] #### [facility] [address] [place] [address] Urobilinogen (U) [Mass/Vol] Negative Normal Negative [facility] Comment on above: Performed By: #### 4 [id number] #### [facility] [address] [place] [address] Type of Urine collection method Clean Catch Normal [facility] Comment on above: Performed By: #### 4 [id number] #### [facility] [address] [place] [address] URINALYSISOrdered By: SYSTEM SYSTEM on 09-26-2023 Bilirubin Ql (U) Negative Normal Negativemg/ dL [facility] UA Auto SS Clarity (U) Clear (09/26/23 2:49 PM) Normal Clear [facility] UA Auto SS Color (U) Colorless 3 *ABN* (09/26/23 2:49 PM) Invalid Interpretation Code Yellow [facility] Comment on above: Interpretive Data: M icroscopic readings are only performed on those samples that meet specific criteria set forth by [facility]. Glucose Ql (U) Negative Normal Negativemg/ [...] PM) Invalid Interpretation Code 5.0 - 9.0 [facility] UA Auto SS Protein Ql (U) Negative Normal Negativemg/ dL [facility] UA Auto SS Specific gravity (U) [Rel density] 1.004 *NA* (09/26/23 2:49 PM) Invalid Interpretation Code 1.005 - 1.030 [facility] UA Auto SS Urobilinogen (U) [Mass/Vol] Negative Normal Negativemg/ dL [facility] UA Auto SS URINALYSISOrdered By: Konstantin dillard on 09-26-2023 UA Spec Desc Clean Catch (09/26/23 2:49 PM) Normal [facility] UA Auto SS Work Phone: US Pelvis [...] Transvaginal Ultrasound Performed Uterus Position Anteverted Normal [facility] US Transvaginal Non-OBon US Transvaginal Non-OB Exam Date/Time: 09/26/2023 17:41 EDT Reason for Exam: Pelvic pain Report Please see ultrasound pelvis non-OB complete report Ordering Provider: Konstantin Penny FINAL REPORT Dictated: 09/26/2023 5:53 pm Chad Mo DO Signed (Electronic Signature): 09/26/2023 5:53 pm Signed by: Chad Mo DO Transcribed by: MILLIE Technologist: HAILEY Miller [facility] eGFRon 09-26-2023 eGFR 114 mL/min/1.73 m2 Normal >=59 [facility] Comment on above: Order Comment: Order added by Discern Expert. Performed By: #### 2 [id number], 61516635, 3821001, 2391453, 0569534 ####[facility] [address] [place] [address] CBC With Platelet and Differ entialon 09-06-2023 Basophils (Bld) [#/Vol] 0.1 10*3/uL Normal 0.0-0.2 [facility] Comment on above: Performed By: #### C BCWD #### [facility] [address] [place] [address] Basophils/100 WBC (Bld) 0.6 % Normal [facility] Comment on above: Performed By: #### C BCWD #### [facility] [address] [place] [address] Eosinophils (Bld) [#/Vol] 0.1 10*3/uL Normal 0.0-0.7 [facility] Comment on above: Performed By: #### C BCWD #### [facility] [address] [place] [address] Eosinophils/100 WBC (Bld) 0.6 % Normal [facility] Comment on above: Performed By: #### C BCWD #### [facility] [address] [place] [address] Erythrocyte distribution width (RBC) [Ratio] 15.9 % Critically high 11.5-14.5 [facility] Comment on above: Performed By: #### C BCWD #### [facility] [address] [place] [address] Hematocrit (Bld) [Volume fraction] 34.5 % Low 37.0-47.0 [facility] Comment on above: Performed By: #### C BCWD #### [facility] [address] [place] [address] Hemoglobin (Bld) [Mass/Vol] 10.1 g/dL Low 12.0-16.0 [facility] Comment on above: Performed By: #### C BCWD #### [facility] [address] [place] [address] Lymphocytes (Bld) [#/Vol] 4.4 10*3/uL Normal 1.0-4.8 [facility] Comment on above: Performed By: #### C BCWD #### [facility] [address] [place] [address] Lymphocytes/100 WBC (Bld) 54.2 % Normal [facility] Comment on above: Performed By: #### C BCWD #### [facility] [address] [place] [address] MCH (RBC) [Entitic mass] 22.9 pg Low 27.0-31.3 [facility] Comment on above: Performed By: #### C BCWD #### [facility] [address] [place] [address] MCHC 29.3 % Low 33.0-37.0 [facility] Comment on above: Performed By: #### C BCWD #### [facility] [address] [place] [address] MCV (RBC) [Entitic vol] 78.2 fL Low 79.4-94.8 [facility] Comment on above: Performed By: #### C BCWD #### [facility] [address] [place] [address] Monocytes (Bld) [#/Vol] 0.5 10*3/uL Normal 0.2-0.8 [facility] Comment on above: Performed By: #### C BCWD #### [facility] [address] [place] [address] Monocytes/100 WBC (Bld) 6.5 % Normal [facility] Comment on above: Performed By: #### C BCWD #### [facility] [address] [place] [address] Neutrophils (Bld) [#/Vol] 3.1 10*3/uL Normal 1.4-6.5 [facility] Comment on above: Performed By: #### C BCWD #### [facility] [address] [place] [address] Neutrophils/100 WBC (Bld) 37.9 % Normal [facility] Comment on above: Performed By: #### C BCWD #### [facility] [address] [place] [address] Platelets (Bld) [#/Vol] 482 10*3/uL Critically high 130-40 0 [facility] Comment on above: Performed By: #### C BCWD #### [facility] [address] [place] [address] RBC (Bld) [#/Vol] 4.41 10*6/uL Normal 4.20-5.40 [facility] Comment on above: Performed By: #### C BCWD #### [facility] [address] [place] [address] WBC (Bld) [#/Vol] 8.1 10*3/uL Normal 4.8-10.8 [facility] Comment on above: Performed By: #### C BCWD #### [facility] [address] [place] [address] Comprehensive Metabolic Pane van 09-06-2023 Albumin [Mass/Vol] 4.4 g/dL Normal 3.5-4.6 [facility] Comment on above: Performed By: #### C MP #### [facility] [address] [place] [address] ALP [Catalytic activity/Vol] 72 U/L Normal 40-130 [facility] Comment on above: Performed By: #### C MP #### [facility] [address] [place] [address] ALT [Catalytic activity/Vol] 15 U/L Normal 0-33 [facility] Comment on above: Performed By: #### C MP #### [facility] [address] [place] [address] Anion gap [Moles/Vol] 11 mmol/L Normal 9-15 [facility] Comment on above: Performed By: #### C MP #### [facility] [address] [place] [address] AST [Catalytic activity/Vol] 18 U/L Normal 0-35 [facility] Comment on above: Performed By: #### C MP #### [facility] [address] [place] [address] Bilirubin [Mass/Vol] 0.4 mg/dL Normal 0.2-0.7 [facility] Comment on above: Performed By: #### C MP #### [facility] [address] [place] [address] Calcium [Mass/Vol] 9.5 mg/dL Normal 8.5-9.9 [facility] Comment on above: Performed By: #### C MP #### [facility] [address] [place] [address] Chloride [Moles/Vol] 102 mmol/L Normal 95-107 [facility] Comment on above: Performed By: #### C MP #### [facility] [address] [place] [address] CO2 [Moles/Vol] 24 mmol/L Normal 20-31 [facility] Comment on above: Performed By: #### C MP #### [facility] [address] [place] [address] Creatinine [Mass/Vol] 0.59 mg/dL Normal 0.50-0.90 [facility] Comment on above: Performed By: #### C MP #### [facility] [address] [place] [address] GFR >90.0 Normal >60 [facility] Comment on above: Result Comment: Meghan [...] secretion. Performed By: #### C MP #### [facility] [address] [place] [address] Globulin (S) [Mass/Vol] 3.5 g/dL Normal 2.3-3.5 [facility] Comment on above: Performed By: #### C MP #### [facility] [address] [place] [address] Glucose [Mass/Vol] 98 mg/dL Normal 70-99 [facility] Comment on above: Performed By: #### C MP #### [facility] [address] [place] [address] Potassium [Moles/Vol] 3.2 mmol/L Low 3.4-4.9 [facility] Comment on above: Performed By: #### C MP #### [facility] [address] [place] [address] Protein [Mass/Vol] 7.9 g/dL Normal 6.3-8.0 [facility] Comment on above: Performed By: #### C MP #### [facility] [address] [place] [address] Sodium [Moles/Vol] 137 mmol/L Normal 135-144 [facility] Comment on above: Performed By: #### C MP #### [facility] [address] [place] [address] Urea nitrogen [Mass/Vol] 4 mg/dL Low 6-20 [facility] Comment on above: Performed By: #### C MP #### [facility] [address] [place] [address] US NON OB TRANSVAGINALon US NON OB [...] Jessy Campos MD 09/06/23 Final result Normal [facility] US PELVIS COMPLETEon 024 US PELVIS [...] Jessy Campos MD 09/06/23 Final result Normal [facility] Urinalysis, reflex to cultur silvino 09-06-2023 Urine Reflexed to Culture Not Indicated Normal [facility] Comment on above: Performed By: #### U AR #### [facility] [address] [facility] [address] Bilirubin Ql (U) Negative Normal Negative [facility] Comment on above: Performed By: #### U AR #### [facility] [address] [place] [address] Clarity (U) Clear Normal Clear [facility] Comment on above: Performed By: #### U AR #### [facility] [address] [place] [address] Color (U) Yellow Normal Straw/Hale [facility] Comment on above: Performed By: #### U AR #### [facility] [address] [place] [address] Glucose Ql (U) >=1000 Abnormal Negative [facility] Comment on above: Performed By: #### U AR #### [facility] [address] [place] [address] Hemoglobin Ql (U) TRACE Abnormal Negative [facility] Comment on above: Performed By: #### U AR #### [facility] [address] [place] [address] Ketones Ql (U) >=80 Abnormal Negative [facility] Comment on above: Performed By: #### U AR #### [facility] [address] [place] [address] Leukocyte esterase Test strip Ql (U) Negative Normal Negative [facility] Comment on above: Performed By: #### U AR #### [facility] [address] [place] [address] Nitrite Ql (U) Negative Normal Negative [facility] Comment on above: Performed By: #### U AR #### [facility] [address] [place] [address] pH (U) 5.0 [pH] Normal 5.0-9.0 [facility] Comment on above: Performed By: #### U AR #### [facility] [address] [place] [address] Protein Ql (U) TRACE Abnormal Negative [facility] Comment on above: Performed By: #### U AR #### [facility] [address] [place] [address] Specific gravity (U) [Rel density] 1.025 Normal 1.005-1.03 [facility] Comment on above: Performed By: #### U AR #### [facility] [address] [place] [address] Urobilinogen Qn (U) 0.2 {Ivone'U}/dL Normal < 2.0 [facility] Comment on above: Performed By: #### U AR #### [facility] [address] [place] [address] Urine Microscopicon 09-06-19 24 Bacteria LM.HPF (Urine sed) [#/Area] Negative Normal Negative [facility] Comment on above: Performed By: #### U ARELIS #### [facility] [address] [place] [address] Urine Epithelial Cells Auto 0-2 Normal 0-5 [facility] Comment on above: Performed By: #### U ARELIS #### [facility] [address] [place] [address] Urine Hyaline Casts Auto 0-1 Normal 0-5 [facility] Comment on above: Performed By: #### U ARELIS #### [facility] [address] [place] [address] Urine RBC Auto 3-5 Abnormal 0-5 [facility] Comment on above: Performed By: #### U ARELIS #### [facility] [address] [place] [address] Urine WBC Auto 0-2 Normal 0-5 [facility] Comment on above: Performed By: #### U ARELIS #### [facility] [address] [place] [address] ED Note-Physicianon 08-01-19 24 ED Note-Physician Basic [...] endometritis for which she follows with a CONVENTION WORKER at the [facility]. Review of Systems A 10 point [...] for discharge home and follow-up with her CONVENTION WORKER. Short course of pain medication as prescribed after an OARRS review for this patient. Return precautions were discussed. All questions were answered. The patient was discharged home for outpatient follow-up for her acute on chronic pain. Assessment/Plan Abdominal pain, acute (R10.9: Unspecified abdominal pain) Ordered: acetaminophen-oxycodon e, 1 tab(s), Oral, q6hr Pain 8-10 for 3 day(s), 12 tab(s), Refill(s) 0, [facility]/pharmacy #[id number], 165.1, cm, 07/31/23 15:42:00 [...] Discharge D (more content not included)... Normal [facility] Comment on above: Result Comment: Elec tronically Signed By: Jignesh Dumont DO\.br\Date and Time Signed: 08/01/23 09:21 EST B hCG Qualon 07-31-2023 Beta HCG ( test) Ql Negative Normal [facility] Comment on above: Performed By: #### 2 009864, 2557815, 89522579, 49566720, 3912856 ####[facility] [address] [place] [address] BMPon 07-31-2023 Anion gap [Moles/Vol] 15 mmol/L Normal 6-16 [facility] Comment on above: Performed By: #### 2 504899, 3403724, 15937730, 35215145, 7538541 ####[facility] [address] [place] [address] BUN/Creat Ratio 4 No Units Low 10-20 [facility] Comment on above: Performed By: #### 2 735616, 7933013, 70533200, 43144087, 3540518 ####[facility] [address] [place] [address] Calcium [Mass/Vol] 9.6 mg/dL Normal 8.9-11.1 [facility] Comment on above: Performed By: #### 2 846819, 2506283, 16743645, 98843272, 7358096 ####[facility] [address] [place] [address] Chloride [Moles/Vol] 106 mmol/L Normal 101-111 [facility] Comment on above: Performed By: #### 2 221261, 7548675, 62682489, 56093046, 6935298 ####[facility] [address] AveNsaint [place] [address] CO2 [Moles/Vol] 21 mmol/L Normal 21-31 [facility] Comment on above: Performed By: #### 2 820749, 8379747, 51417263, 65573338, 4177337 ####[facility] [address] [place] [address] Creatinine [Mass/Vol] 0.9 mg/dL Normal 0.5-1.3 [facility] Comment on above: Performed By: #### 2 953367, 9013018, 90362546, 72766555, 0858301 ####[facility] [address] [place] [address] Glucose [Mass/Vol] 109 mg/dL Normal 55-199 [facility] Comment on above: Performed By: #### 2 806432, 3528593, 76551166, 09373278, 9770214 ####[facility] [address] [place] [address] Potassium [Moles/Vol] 3.6 mmol/L Normal 3.5-5.3 [facility] Comment on above: Performed By: #### 2 858911, 6882038, 87338881, 24067219, 9067360 ####[facility] [address] [place] [address] Sodium [Moles/Vol] 138 mmol/L Normal 135-145 [facility] Comment on above: Performed By: #### 2 271499, 5192740, 24241470, 44298271, 6983414 ####[facility] [address] [place] [address] Urea nitrogen [Mass/Vol] mg/dL Low 5-21 [facility] Comment on above: Performed By: #### 2 904978, 4520300, 11889956, 09821390, 8270088 ####[facility] [address] [place] [address] CBC w/ Auto Diffon 4 Anisocytosis Ql (Bld) PRESENT Invalid Interpretation Code [facility] Comment on above: Performed By: #### 2 931360, 3779693, 39046495, 74362260, 3945292 ####[address] [address] Microcyte PRESENT Invalid Interpretation Code [facility] Comment on above: Performed By: #### 2 532713, 9614951, 97768338, 42896400, 9399986 ####[address] [address] RBC morphology finding Nom (Bld) SEE MORPHOLOGY Invalid Interpretation Code [facility] Comment on above: Performed By: #### 2 590802, 6504118, 94330100, 78480935, 2027539 ####[facility] [address] [place] [address] Basophil Absolute 0.1 E9/L Normal 0.0-0.2 [facility] Comment on above: Performed By: #### 2 588887, 4287811, 32942231, 08183980, 0015442 ####[address] [place] [address] Basophils/100 WBC (Bld) 1.1 % Normal 0.0-2.0 [facility] Comment on above: Performed By: #### 2 927507, 5076214, 40928829, 03576977, 3135011 ####[facility] [address] [place] [address] Eos Absolute 0.0 E9/L Normal 0.0-0.5 [facility] Comment on above: Performed By: #### 2 017729, 1007810, 72475165, 58805730, 0784363 ####[address] [address] Eosinophils/100 WBC (Bld) 0.2 % Normal 0.0-8.0 [facility] Comment on above: Performed By: #### 2 911877, 6786208, 25107667, 36654893, 0392876 ####[address] [address] Erythrocyte distribution width (RBC) [Ratio] 16.5 % High 10.9-14.2 [facility] Comment on above: Performed By: #### 2 881903, 8521684, 37651851, 50217225, 4704173 ####[address] [address] Hematocrit (Bld) [Volume fraction] 36.0 % Normal 34.0-46.0 [facility] Comment on above: Performed By: #### 2 355482, 7315853, 86661924, 04292495, 6830809 ####[address] [address] Hemoglobin (Bld) [Mass/Vol] 11.4 g/dL Low 12.0-16.0 [facility] Comment on above: Performed By: #### 2 882174, 6687591, 67417598, 19806842, 9013899 ####[address] [address] Lymph Absolute 2.2 E9/L Normal 1.0-4.0 [facility] Comment on above: Performed By: #### 2 970154, 8158715, 37159161, 50948578, 9170844 ####[address] [address] Lymphocytes/100 WBC (Bld) 25.3 % Normal 14.0-50.0 [facility] Comment on above: Performed By: #### 2 815237, 3275688, 80536362, 23375402, 4836492 ####[facility] [address] [place] [address] MCH (RBC) [Entitic mass] 24.0 pg Low 27.0-34.0 [facility] Comment on above: Performed By: #### 2 128064, 3526820, 72030400, 57547999, 7385968 ####[facility] [address] [place] [address] MCHC (RBC) [Mass/Vol] 31.9 g/dL Normal 31.4-36.0 [facility] Comment on above: Performed By: #### 2 117842, 2074016, 03890031, 00426202, 7425862 ####[address] [address] MCV (RBC) [Entitic vol] 75.2 fL Low 80.0-100.0 [facility] Comment on above: Performed By: #### 2 924405, 3632151, 99160576, 92678541, 8862916 ####[facility] [address] [place] [address] [place]uda Absolute 0.5 E9/L Normal 0.2-1.0 [facility] Comment on above: Performed By: #### 2 246104, 9513608, 06764257, 52517800, 6385137 ####[address] [address] Monocytes/100 WBC (Bld) 5.4 % Normal 4.0-14.0 [facility] Comment on above: Performed By: #### 2 903090, 5330621, 21678141, 25013661, 0066481 ####[facility] [address] [place] [address] Neutro Absolute 5.9 E9/L Normal 2.0-7.5 [facility] Comment on above: Performed By: #### 2 521763, 8562224, 85132978, 86385858, 5401609 ####[facility] [address] [place] [address] Neutro Auto 68.0 % Normal 36.0-75.0 [facility] Comment on above: Performed By: #### 2 807010, 9086330, 85283293, 50163754, 4014614 ####[facility] [address] [place] [address] Platelet 612.0 E9/L High 150.0-500.0 [facility] Comment on above: Performed By: #### 2 417286, 8528226, 03959747, 82151516, 3643862 ####[facility] [address] [place] [address] Platelet mean volume (Bld) [Entitic vol] 7.4 fL Normal 6.4-10.8 [facility] Comment on above: Performed By: #### 2 812679, 2157506, 21760937, 64607292, 9699717 ####[facility] [address] [place] [address] RBC 4.7 E12/L Normal 4.3-5.9 [facility] Comment on above: Performed By: #### 2 879791, 5146935, 09958826, 03258557, 1225589 ####[facility] [address] [place] [address] WBC 8.6 E9/L Normal 4.0-11.0 [facility] Comment on above: Performed By: #### 2 604959, 2842020, 90240986, 40281840, 4717574 ####[facility] [address] [place] [address] CHEMISTRYOrdered By: SYSTEM SYSTEM on 07-31-2023 Albumin [...] Oral contrast amount in ml's: 0 Normal [facility] Discharge Instructionson Discharge Instructions [id number]#1.0 0TIFF Normal [facility] ED Clinical Summaryon 2023 ED Clinical Summary [address] [address] ED Clinical Summary Person Information Name: ANTONIA NOYOLA/Michelle Age: 38 Years : 1985 Sex: Female Language: Lebanese PCP: NONE, XXXX Marital Status: Visit Id: [...] 18:03:59 07/31/2023 18:03:59 07/31/2023 18:03:59 ADDRESS: [address] [place] [id number] PHYS DOC NOTES: MEDICAL INFORMATION: Prescriptions Given: New Medications [facility]/pharmacy #2210, [address] [place], [place] [id number], [phone] acetaminophen-oxycodon e (Percocet 5 mg-325 mg oral [...] up: With: Address: When: Follow-up with your CONVENTION WORKER at [facility] In 3 days 08/03/2023 Comments: Call [...] worsening symptoms. DIAGNOSIS: Abdominal pain, acute Normal [facility] ED Patient Education Noteon 07-31-2023 ED [...] these instructions at home: Medicines ? Take pxzw-tle-ytejhgo and prescription medicines only as told by [...] your condition for any changes. ? Take dapz-arv-knquuzb and prescription medicines only as told by [...] provider. Document Revised: 07/18/2020 Document Reviewed: 10/08/2019 [employer] Patient Education ? 2022 [employer] Normal [facility] ED Patient Summaryon 024 ED Patient Summary [place] [id number] Patient Discharge Instructions Person Information Name: ANTONIA NOYOLA Age: 38 Years Arrival Date: 07/31/2023 15:33:06 Discharge Diagnosis: Abdominal pain, acute Primary Care Physician: NONE, XXXX Provider Information Primary Provider: Jignesh Dumont DO [employer] Assistant:None The exam and treatment you received in the Emergency Department were for an urgent problem and are not intended as complete care. It is important that you follow up with a doctor, nurse practitioner, or physician?s corporate legal assistant for ongoing care. If your [...] Instructions: With: Address: When: Follow-up with your CONVENTION WORKER at [facility] In 3 days 08/03/2023 Comments: Call [...] opioids can be used to help relieve tfykallp-vd-vnwxwn pain and are often prescribed following a [...] and al (more content not included)... Normal [facility] HEMATOLOGYOrdered By: Sloane Mazariegos on 07-31-2023 [...] Low 80.0 - 100.0 fL Remisol Heme [place] Absolute 0.5 E9/L Normal 0.2 - 1.0 [...] 07-31-2023 Albumin [Mass/Vol] 4.6 g/dL Normal 3.3-5.0 [facility] Comment on above: Performed By: #### 2 998526, 5372552, 06021124, 68867832, 6661358 ####[facility] [address] [place] [address] Albumin/Globulin [Mass ratio] 1.4 {ratio} Normal 1.1-2.2 [facility] Comment on above: Performed By: #### 2 141846, 2693552, 16304814, 33992966, 3708757 ####[facility] [address] [place] [address] Alk Phos 73 Int._Unit/L Normal 21-98 [facility] Comment on above: Performed By: #### 2 557199, 6138181, 18790522, 08874455, 5919231 ####[address] [place] [address] ALT 10 Int._Unit/L Normal 6-46 [facility] Comment on above: Performed By: #### 2 863414, 7492374, 08923535, 73541441, 8404477 ####[facility] [address] [place] [address] AST 11 Int._Unit/L Normal 5-43 [facility] Comment on above: Performed By: #### 2 471946, 7819801, 12205798, 48097845, 7072355 ####[facility] [address] [place] [address] Bili Direct 0.1 mg/dL Normal 0.0-0.4 [facility] Comment on above: Performed By: #### 2 930181, 8590031, 31727059, 35197933, 6414759 ####[facility] [address] [place] [address] Bili Indirect 0.4 mg/dL Normal 0.1-0.9 [facility] Comment on above: Performed By: #### 2 357577, 0004069, 71135885, 01785992, 6391756 ####[facility] [address] [place] [address] Bili Total 0.5 mg/dL Normal 0.0-1.1 [facility] Comment on above: Performed By: #### 2 975759, 6934614, 90718956, 33734202, 4642950 ####[facility] [address] [place] [address] Globulin (S) [Mass/Vol] 3.3 g/dL Normal 1.4-4.0 [facility] Comment on above: Performed By: #### 2 244439, 1095967, 84379031, 83340158, 1514793 ####[facility] [address] [place] [address] Protein [Mass/Vol] 7.9 g/dL High 6.0-7.8 [facility] Comment on above: Performed By: #### 2 881766, 8998017, 76378350, 23233090, 6177672 ####[address] [address] Monitor Recordon 07-31-2023 Monitor Record [id number] 20 [id number]. 00TIFF Normal [facility] SEROLOGYOrdered By: Felicity patel on 07-31-2023 Beta HCG ( test) Ql Negative (07/31/23 4:20 PM) Normal [facility] UA With Cult Reflexon 2023 Bacteria LM Ql (Urine sed) TRACE Normal Trace [facility] Comment on above: Performed By: #### 1 9604292 ####[address] [address] Bilirubin Ql (U) Negative Normal Negative [facility] Comment on above: Performed By: #### 1 5987071 ####[facility] [address] [place] [address] Clarity (U) CLEAR Normal Clear [facility] Comment on above: Performed By: #### 1 8869668 ####[address] [place] [address] Color (U) YELLOW Normal Yellow [facility] Comment on above: Performed By: #### 1 2128922 ####[address] [address] Epithelial cells.squamous LM.HPF (Urine sed) [#/Area] 0-2 Normal 0-2 [facility] Comment on above: Performed By: #### 1 7523398 ####[facility] [address] [place] [address] Glucose Test strip (U) [Mass/Vol] Negative Normal Negative [facility] Comment on above: Performed By: #### 1 6782769 ####[facility] [address] [place] [address] Hemoglobin Ql (U) Negative Normal Negative [facility] Comment on above: Performed By: #### 1 8097676 ####[address] [address] Ketones (U) [Mass/Vol] 1+ Abnormal Negative [facility] Comment on above: Performed By: #### 1 2694212 ####[address] [address] Flowella.plasma/Flowella. RBC (Bld) [Mass ratio] 0-3 Normal 0-3 [facility] Comment on above: Performed By: #### 1 3446940 ####[facility] [address] [place] [address] Mucus Ql (Urine sed) TRACE Normal [facility] Comment on above: Performed By: #### 1 0956328 ####[facility] [address] [place] [address] Nitrite Ql (U) Negative Normal Negative [facility] Comment on above: Performed By: #### 1 6412256 ####[facility] [address] [place] [address] pH (U) 8.5 [pH] Invalid Interpretation Code 5.0-9.0 [facility] Comment on above: Performed By: #### 1 0114833 ####[address] [place] [address] Protein (U) [Mass/Vol] Negative Normal Negative [facility] Comment on above: Performed By: #### 1 9764493 ####[facility] [address] [place] [address] Specific gravity (U) [Rel density] 1.015 Invalid Interpretation Code 1.005-1.030 [facility] Comment on above: Performed By: #### 1 1199049 ####[place] [address] Type of Urine collection method Clean Catch Normal [facility] Comment on above: Performed By: #### 1 2239387 ####[place] [address] Urobilinogen Qn (U) 0.2 {Ivone'U}/dL Normal 0.0-1.0 [facility] Comment on above: Performed By: #### 1 1927984 ####[address] [address] WBC Auto Ql (U) Negative Normal Negative [facility] Comment on above: Performed By: #### 1 7759218 ####[address] [address] WBC LM.HPF (Urine sed) [#/Area] 0-5 Normal 0-5 [facility] Comment on above: Performed By: #### 1 1261046 ####[place] [address] URINALYSISOrdered By: Felicity George on 07-31-2023 Bacteria [...] Interpretation Code Negative [facility] UA Auto SS Flowella.plasma/Flowella. RBC (Bld) [Mass ratio] 0-3 /HPF Normal [...] FT UA Auto SS Urobilinogen Qn (U) 0.8969912 {Ivone'U}/dL Normal 0.0 - 1.0 EU/dL [facility] UA Auto SS WBC Auto Ql (U) Negative (07/31/23 4:30 PM) Normal Negative [facility] UA Auto SS WBC LM.HPF (Urine sed) [#/Area] 0-5 /HPF Normal 0-5/HPF [facility] UA Auto SS eGFRon 07-31-2023 eGFR 85 mL/min/1.73 m2 Normal >=59 [facility] Comment on above: Order Comment: Order added by Discern Expert. Performed By: #### 2 036874, 0091183, 37907819, 65105951, 2445806 ####[facility] [address] [place] [address] ED NOTEon 06-23-2023 ED NOTE HNO ID: [id number] Author: DENNIS CAMARGO RN Service: ? Author Type: Registered Nurse Type: ED Notes Filed: 06/22/2023 22:17 Note Text: Patient given verbal and written D/C instructions. Medications and follow up care discussed. Instructed to return to ED if conditions and symptoms persist or worsen. All questions addressed and answered pt verbalized understanding. [facility] HAV IgM Ser Qlon 06-23-2023 HAV IgM Ql (S) Negative Normal Negative [facility] Comment on above: Order Comment: Speci men Type: BLOOD SPECIMENOrdering Facility: [facility] Address: [address] [place] [address] Result Comment: No e vidence of recent infection with Hepatitis A virus. Performed By: #### 3 1204-1, 53, 82079-2 ####[facility] LABCLIA [id number] [place] [address] [place] HBV core IgM Ser Qlon 2023 HBV core IgM Ql (S) Negative Normal Negative [facility] Comment on above: Order Comment: Speci men Type: BLOOD SPECIMENOrdering Facility: [facility] Address: [address] [place] [address] Result Comment: No e vidence of recent infection with Hepatitis B virus. Should recent infection be suspected, repeat testing may be considered 3-4 weeks after this draw. Performed By: #### 3 1204-1, 53, 67024-9 ####[facility] LABCLIA [id number] [place] [address] [place] HBV surface Ag Ser Qlon 06-13 HBV surface Ag Ql (S) Negative Normal Negative [facility] Comment on above: Order Comment: Speci men Type: BLOOD SPECIMENOrdering Facility: [facility] Address: [address] [place] [address] Performed By: #### 3 1204-1, 3, ####[facility] LABCLIA [id number] [place] [address] [place] HCV RNA SerPl SENAIT+probe-aCnc on 06-23-2023 HCV RNA SENAIT+probe Qn Not detected Normal HCV RNA not detected by PCR. [facility] Comment on above: Order Comment: Speci men Type: BLOOD SPECIMEN Ordering Facility: [facility] Address: [address] [place] [address] Performed By: #### 1 1011-4 #### [facility] CLIA [id number] [facility] [id number] [place] ALLIED HEALTHon 06-22-2023 ALLIED HEALTH HNO ID: [id number] Author: SELENA AMADOR RT(R) Service: Radiology Author [...] DATE: June 22, 2023 TIME: 7:[address] [facility] HNO ID: [id number] Author: DELLA BEST RDMS, RVT Service: Radiology Author Type: Baggage Checker Type: Allied Health Filed: 06/22/2023 18:55 Note [...] June 22, 2023 6:55 PM [facility] CBC W Auto Differential pane l (Bld)on 06-22-2023 Basophils (Bld) [#/Vol] 0.03 10*3/uL Normal <0.11 [facility] Comment on above: Order Comment: Speci zoraida Type: BLOOD SPECIMENOrdering Facility: [facility] Address: [address] [place] [address] Performed By: #### 5 7021-8 ####[facility] LABORATORYCLIA [id number] [place] [address] [place] Basophils/100 WBC (Bld) 0.6 % Normal L [facility] Comment on above: Order Comment: Speci men Type: BLOOD SPECIMENOrdering Facility: [facility] Address: [address] [place] [address] Performed By: #### 5 7021-8 ####[facility] LABORATORYCLIA [id number] [address] [place], [place] [id number] [place] Differential cell count method Nom (Bld) Auto Normal [facility] Comment on above: Order Comment: Speci men Type: BLOOD SPECIMENOrdering Facility: [facility] Address: [address] [place] [address] Performed By: #### 5 7021-8 ####[facility] LABORATORYCLIA [id number] [address] [place] [address] [place] Eosinophils (Bld) [#/Vol] 0.03 10*3/uL Normal <0.46 [facility] Comment on above: Order Comment: Speci men Type: BLOOD SPECIMENOrdering Facility: [facility] Address: [address] [place] [address] Performed By: #### 5 7021-8 ####YARSANISM LABORATORYCLIA [id number] [address] [place] [address] [place] Eosinophils/100 WBC (Bld) 0.6 % [facility] Comment on above: Order Comment: Speci men Type: BLOOD SPECIMENOrdering Facility: [facility] Address: [address] [place] [address] Performed By: #### 5 7021-8 ####YARSANISM LABORATORYCLIA [id number] [address] [place] [address] [place] Erythrocyte distribution width (RBC) [Ratio] 16.5 % High 11.5-15.0 [facility] Comment on above: Order Comment: Speci men Type: BLOOD SPECIMENOrdering Facility: [facility] Address: [address] [place] [address] Performed By: #### 5 7021-8 ####YARSANISM LABORATORYCLIA [id number] [address] [place] Hematocrit (Bld) [Volume fraction] 37.7 % Normal 36.0-46.0 [facility] Comment on above: Order Comment: Speci men Type: BLOOD SPECIMENOrdering Facility: [facility] Address: [address] [place] [address] Performed By: #### 5 7021-8 ####YARSANISM LABORATORYCLIA [id number] [address] [place] [address] [place] Hemoglobin (Bld) [Mass/Vol] 11.7 g/dL Normal 11.5-15.5 [facility] Comment on above: Order Comment: Speci men Type: BLOOD SPECIMENOrdering Facility: [facility] Address: [address] [place] [address] Performed By: #### 5 7021-8 ####YARSANISM LABORATORYCLIA [id number] [address] [place] [address] [place] Immature granulocytes (Bld) [#/Vol] 10*3/uL Normal <0.10 [facility] Comment on above: Order Comment: Speci men Type: BLOOD SPECIMENOrdering Facility: [facility] Address: [address] [place] [address] Performed By: #### 5 7021-8 ####YARSANISM LABORATORYCLIA [id number] [place] [address] [place] Immature granulocytes/100 WBC (Bld) 0.4 % Normal [facility] Comment on above: Order Comment: Speci men Type: BLOOD SPECIMENOrdering Facility: [facility] Address: [address] [place] [address] Performed By: #### 5 7021-8 ####YARSANISM LABORATORYCLIA [id number] [place] [address] [place] Lymphocytes (Bld) [#/Vol] 1.87 10*3/uL Normal 1.00-4.00 [facility] Comment on above: Order Comment: Speci men Type: BLOOD SPECIMENOrdering Facility: [facility] Address: [address] [place] [address] Performed By: #### 5 7021-8 ####YARSANISM LABORATORYCLIA [id number] [place] [address] [place] Lymphocytes/100 WBC (Bld) 34.4 % Normal [facility] Comment on above: Order Comment: Speci men Type: BLOOD SPECIMENOrdering Facility: [facility] Address: [address] [place] [address] Performed By: #### 5 7021-8 ####YARSANISM LABORATORYCLIA [id number] [address] [place] [address] [place] MCH (RBC) [Entitic mass] 24.5 pg Low 26.0-34.0 [facility] Comment on above: Order Comment: Speci men Type: BLOOD SPECIMENOrdering Facility: [facility] Address: [address] [place] [address] Performed By: #### 5 7021-8 ####YARSANISM LABORATORYCLIA [id number] [place] [address] [place] MCHC (RBC) [Mass/Vol] 31.0 g/dL Normal 30.5-36.0 [facility] Comment on above: Order Comment: Speci men Type: BLOOD SPECIMENOrdering Facility: [facility] Address: [address] [place] [address] Performed By: #### 5 7021-8 ####YARSANISM LABORATORYCLIA [id number] [place] [address] [place] MCV (RBC) [Entitic vol] 79.0 fL Low 80.0-100.0 [facility] Comment on above: Order Comment: Speci men Type: BLOOD SPECIMENOrdering Facility: [facility] Address: [address] [place] [address] Performed By: #### 5 7021-8 ####YARSANISM LABORATORYCLIA [id number] [place] [address] [place] Monocytes (Bld) [#/Vol] 0.25 10*3/uL Normal <0.87 [facility] Comment on above: Order Comment: Speci men Type: BLOOD SPECIMENOrdering Facility: [facility] Address: [address] [place] [address] Performed By: #### 5 7021-8 ####YARSANISM LABORATORYCLIA [id number] [address] [address] [place] Monocytes/100 WBC (Bld) 4.6 % Normal [facility] Comment on above: Order Comment: Speci men Type: BLOOD SPECIMENOrdering Facility: [facility] Address: [address] [place] [address] Performed By: #### 5 7021-8 ####YARSANISM LABORATORYCLIA [id number] [address] [place] [address] [place] Neutrophils (Bld) [#/Vol] 3.23 10*3/uL Normal 1.45-7.50 [facility] Comment on above: Order Comment: Speci men Type: BLOOD SPECIMENOrdering Facility: [facility] Address: [address] [place] [address] Performed By: #### 5 7021-8 ####YARSANISM LABORATORYCLIA [id number] [address] [place] [address] [place] Neutrophils/100 WBC (Bld) 59.4 % Normal [facility] Comment on above: Order Comment: Speci men Type: BLOOD SPECIMENOrdering Facility: [facility] Address: [address] [place] [address] Performed By: #### 5 7021-8 ####YARSANISM LABORATORYCLIA [id number] [place] [address] [place] Nucleated RBC (Bld) [#/Vol] 10*3/uL Normal <0.01 [facility] Comment on above: Order Comment: Speci men Type: BLOOD SPECIMENOrdering Facility: [facility] Address: [address] [place] [address] Performed By: #### 5 7021-8 ####YARSANISM LABORATORYCLIA [id number] [address] [place] [address] [place] Nucleated RBC/100 WBC (Bld) [Ratio] 0.0 /100 WBC Normal [facility] Comment on above: Order Comment: Speci men Type: BLOOD SPECIMENOrdering Facility: [facility] Address: [address] [place] [address] Performed By: #### 5 7021-8 ####YARSANISM LABORATORYCLIA [id number] [address] [place] [address] [place] Platelet mean volume (Bld) [Entitic vol] 9.4 fL Normal 9.0-12.7 [facility] Comment on above: Order Comment: Speci men Type: BLOOD SPECIMENOrdering Facility: [facility] Address: [address] [place] [address] Performed By: #### 5 7021-8 ####YARSANISM LABORATORYCLIA [id number] [address] [place] [address] [place] Platelets (Bld) [#/Vol] 486 10*3/uL High 150-400 [facility] Comment on above: Order Comment: Speci men Type: BLOOD SPECIMENOrdering Facility: [facility] Address: [address] [place] [address] Performed By: #### 5 7021-8 ####YARSANISM LABORATORYCLIA [id number] [address] [place] [address] [place] RBC (Bld) [#/Vol] 4.77 10*6/uL Normal 3.90-5.20 [facility] Comment on above: Order Comment: Speci men Type: BLOOD SPECIMENOrdering Facility: [facility] Address: [address] [place] [address] Performed By: #### 5 7021-8 ####YARSANISM LABORATORYCLIA [id number] [address] [place] WBC (Bld) [#/Vol] 5.43 10*3/uL Normal 3.70-11.00 [facility] Comment on above: Order Comment: Speci men Type: BLOOD SPECIMENOrdering Facility: [facility] Address: [address] [place] [address] Performed By: #### 5 7021-8 ####YARSANISM LABORATORYCLIA [id number] [address] [place], [place] [address] [place] CT ABD/PEL W [...] Tissues: No significant finding. Lower thorax: Unremarkable. Mercantile Agent (topogram) images: Unremarkable. IMPRESSION: No acute intra-abdominal or pelvic process identified. Coffee Brewer: ANTONIO Transcribe Date/Time: Jun 22 2023 8:25P Dictated by : CHAD SCHILLING MD This examination was interpreted and the report reviewed and electronically signed by: CHAD SCHILLING MD on Jun 22 2023 8:29PM EST [id number] Normal [facility] Comprehensive metabolic 2000 panelon 06-22-2023 Albumin [Mass/Vol] 4.8 g/dL Normal 3.9-4.9 [facility] Comment on above: Order Comment: Speci men Type: BLOOD SPECIMENOrdering Facility: [facility] Address: [address] [place] [address] Performed By: #### 2 4323-8, 3040-3, 25559-0 ####YARSANISM LABORATORYCLIA [id number] [place] [address] [place] ALP [Catalytic activity/Vol] 108 U/L Normal 34-123 [facility] Comment on above: Order Comment: Speci men Type: BLOOD SPECIMENOrdering Facility: [facility] Address: [address] [place] [address] Performed By: #### 2 4323-8, 3040-3, ####YARSANISM LABORATORYCLIA [id number] [address] [place], [place] [address] [place] ALT [Catalytic activity/Vol] 63 U/L High 7-38 [facility] Comment on above: Order Comment: Speci men Type: BLOOD SPECIMENOrdering Facility: [facility] Address: [address] [place] [address] Performed By: #### 2 4323-8, 3039-3, ####YARSANISM LABORATORYCLIA [id number] [address] [place], [place] [address] [place] Anion gap [Moles/Vol] 13 mmol/L Normal 9-18 [facility] Comment on above: Order Comment: Speci men Type: BLOOD SPECIMENOrdering Facility: [facility] Address: [address] [place] [address] Performed By: #### 2 4323-8, 3039-3, ####YARSANISM LABORATORYCLIA [id number] [place] [address] [place] AST [Catalytic activity/Vol] 109 U/L High 13-35 [facility] Comment on above: Order Comment: Speci men Type: BLOOD SPECIMENOrdering Facility: [facility] Address: [address] [place] [address] Performed By: #### 2 4323-8, 0-3, ####YARSANISM LABORATORYCLIA [id number] [address] [place], [place] [address] [place] Bilirubin [Mass/Vol] 0.4 mg/dL Normal 0.2-1.3 [facility] Comment on above: Order Comment: Speci men Type: BLOOD SPECIMENOrdering Facility: [facility] Address: [address] [place] [address] Performed By: #### 2 4323-8, 3040-3, ####YARSANISM LABORATORYCLIA [id number] [address] [place], [place] [address] [place] Calcium [Mass/Vol] 9.6 mg/dL Normal 8.5-10.2 [facility] Comment on above: Order Comment: Speci men Type: BLOOD SPECIMENOrdering Facility: [facility] Address: [address] [place] [address] Performed By: #### 2 4323-8, 3039-3, ####YARSANISM LABORATORYCLIA [id number] [address] [place], [place] [address] [place] Chloride [Moles/Vol] 102 mmol/L Normal 97-105 [facility] Comment on above: Order Comment: Speci men Type: BLOOD SPECIMENOrdering Facility: [facility] Address: [address] [place] [address] Performed By: #### 2 4323-8, 3, ####YARSANISM LABORATORYCLIA [id number] [place] [address] [place] CO2 [Moles/Vol] 23 mmol/L Normal 22-30 [facility] Comment on above: Order Comment: Speci men Type: BLOOD SPECIMENOrdering Facility: [facility] Address: [address] [place] [address] Performed By: #### 2 4323-8, 3, ####YARSANISM LABORATORYCLIA [id number] [place] [address] [place] Creatinine [Mass/Vol] 0.64 mg/dL Normal 0.58-0.96 [facility] Comment on above: Order Comment: Speci men Type: BLOOD SPECIMENOrdering Facility: [facility] Address: [address] [place] [address] Performed By: #### 2 4323-8, 3039-3, ####YARSANISM LABORATORYCLIA [id number] [place] [address] [place] Creatinine and Glomerular filtration rate.predicted panel (S/P/Bld) 118 mL/min/1.73m??? Normal >=60 [facility] Comment on above: Order Comment: Roselyn conway Type: BLOOD SPECIMENOrdering Facility: [facility] Address: [place] [address] Result Comment: Shelley mated Glomerular Filtration Rate [...] GFR. Performed By: #### 2 4323-8, 3040-3, 31215-0 ####YARSANISM LABORATORYCLIA [id number] [place] [id number] [place] Glucose [Mass/Vol] 102 mg/dL High 74-99 [facility] Comment on above: Order Comment: Roselyn conway Type: BLOOD SPECIMENOrdering Facility: [facility] Address: [address] [place] [address] Result Comment: The [place] [employer] (ADA) provides guidance for cutoff [...] Standards of Medical Care in Diabetes 2016, [place] [employer]. Diabetes Care. 2016.39(Suppl 1). Performed By: #### 2 4323-8, 3040-3, 81246-4 ####YARSANISM LABORATORYCLIA [id number] [place] [id number] [place] Potassium [Moles/Vol] 3.8 mmol/L Normal 3.7-5.1 [facility] Comment on above: Order Comment: Roselyn conway Type: BLOOD SPECIMENOrdering Facility: [facility] Address: [address] [place] [address] Performed By: #### 2 4323-8, 3040-3, ####YARSANISM LABORATORYCLIA [id number] [place] [id number] [place] Protein [Mass/Vol] 8.2 g/dL High 6.3-8.0 [facility] Comment on above: Order Comment: Speci men Type: BLOOD SPECIMENOrdering Facility: [facility] Address: [address] [place] [address] Performed By: #### 2 4323-8, 0-3, ####YARSANISM LABORATORYCLIA [id number] [place] [id number] [place] Sodium [Moles/Vol] 138 mmol/L Normal 136-144 [facility] Comment on above: Order Comment: Speci men Type: BLOOD SPECIMENOrdering Facility: [facility] Address: [address] [place] [address] Performed By: #### 2 4323-8, 0-3, ####YARSANISM LABORATORYCLIA [id number] [place] [id number] [place] Urea nitrogen [Mass/Vol] 8 mg/dL Normal 7-21 [facility] Comment on above: Order Comment: Speci men Type: BLOOD SPECIMENOrdering Facility: [facility] Address: [address] [place] [address] Performed By: #### 2 4323-8, 3039-3, ####YARSANISM LABORATORYCLIA [id number] [place] [id number] [place] ECG COMPLETEon 06-22-2023 ECG COMPLETE Ventricular Rate : 1 05 BPM Atrial Rate : 103 BPM P-R Interval : 152 ms QRS Duration : 77 ms Q-T Interval : 324 ms QTC Calculation(Bazett) : 429 ms Calculated P [place] : 42 degrees Calculated R [place] : 56 degrees Calculated T [place] : 49 degrees Sinus tachycardia Low voltage, precordial leads Anteroseptal infarct, old Abnormal ECG no stemi 1814 Confirmed by MD SEN BRENT ([id number]), editorial specialist STEPHENIE ERIC (1940) on 06/23/2023 12:09:36 PM NAME : ANTONIA NOYOLA PID : [id number] : 1985 Gender : Female Race : ORD : [id number] Procedure Date : Jun 22 2023 18:10:13 Edit Date : Jun 23 2023 12:09:40 Diagnosis: Sinus tachycardia Low voltage, precordial leads Anteroseptal infarct, old Abnormal ECG no stemi 1814 Confirmed by MD SEN BRENT ([id number]), editorial specialist STEPHENIE ERIC (1940) on 06/23/2023 12:09:36 PM Test Reason : Tachycardia Location : 502 : [facility] ED Overread By : MD SEN BRENT Edited By : STEPHENIE ERIC Referred By : , Acquired by : DAVID [facility] ED NOTEon 06-22-2023 ED NOTE HNO ID: [id number] Author: DENNIS CAMARGO RN Service: ? Author Type: Registered Nurse Type: ED Notes Filed: 06/22/2023 21:56 Note Text: Assumed care of pt at this time and received report from previous RN. [facility] ED NOTE HNO ID: [id number] Author: MATILDE DAVIS RN Service: Nursing Author Type: Registered Nurse Type: ED Notes Filed: 06/22/2023 17:38 Note Text: Pt presents with LLQ pain that radiates to back that began this morning but worsened one hour prior to arrival. Denies urinary complaints. [facility] ED PROV NOTEon 06-22-2023 ED PROV NOTE HNO ID: [id number] Author: EVGENY SEN MD Service: Emergency Medicine [...] with some relief. History provided by: Patient customs consultant used: No PAST MEDICAL HISTORY Diagnosis Date [...] Ref Range (more content not included)... Normal [facility] ED Triage Noteon 06-22-2023 ED Triage Note HNO ID: [id number] Author: TABBY LUCIANO PA-C Service: ? Author Type: Physician Power Transformer Inspector Type: ED Triage Notes Filed: 06/22/2023 17:43 [...] treating team. SIGNATURE: Tabby Luciano PA-C Normal [facility] HCG Preg Ur Qlon 06-22-2023 HCG ( test) Ql (U) Negative Normal Negative [facility] Comment on above: Order Comment: Speci men Type: URINE SPECIMENOrdering Facility: [facility] Address: [address] [place], [place] [address] Result Comment: This test is intended to aid in the early detection of . Very dilute urine samples, as indicated by a low specific gravity, may not contain market survey representative levels of hCG. This test detects [...] for . Performed By: #### 2 106-3 ####YARSANISM LABORATORYCLIA [id number] [place] [address] [place] Lipase SerPl-cCngeneral [facility] 06-22-19 24 Lipase [Catalytic activity/Vol] 34 U/L Normal 16-61 [facility] Comment on above: Order Comment: Speci men Type: BLOOD SPECIMENOrdering Facility: [facility] Address: [address] [place] [id number] Performed By: #### 2 4323-8, 3040-3, ####YARSANISM LABORATORYCLIA [id number] [place] [id number] [place] Magnesium SerPl-mCncon 06-22 Magnesium [Mass/Vol] 2.2 mg/dL Normal 1.7-2.3 [facility] Comment on above: Order Comment: Speci men Type: BLOOD SPECIMENOrdering Facility: [facility] Address: [address] [place] [id number] Performed By: #### 2 4323-8, 3040-3, ####YARSANISM LABORATORYCLIA [id number] [place] [id number] [facility] [place] US DOPPLER COMPLETEon 2023 US DOPPLER COMPLETE * * *Final Report* * * DATE OF EXAM: Jun 22 2023 6:54PM [facility] 1033 - US DOPPLER COMPLETE / [...] and stored in a permanent archive. MQ: [facility]_2021 COMPARISON: None RESULT: Uterus: -Size: [...] Normal sonographic appearance of the female pelvis. Coffee Brewer: ANTONIO Transcribe Date/Time: Jun 22 2023 7:44P Dictated by : Vasu BURNS MD This examination was interpreted and the report reviewed and electronically signed by: Vasu BURNS MD on Jun 22 2023 7:48PM EST [id number] [facility] FEMALE PELVIS TRANSABD LT Don 06-22-2023 FEMALE [...] and stored in a permanent archive. MQ: [facility]_2021 COMPARISON: None RESULT: Uterus: -Size: [...] Normal sonographic appearance of the female pelvis. Coffee Brewer: ANTONIO Transcribe Date/Time: Jun 22 2023 7:44P Dictated by : Vasu BURNS MD This examination was interpreted and the report reviewed and electronically signed by: Vasu BURNS MD on Jun 22 2023 7:48PM EST [id number] [facility] US FEMALE PELVIS TRANSVAGon 06-22-2023 [...] Normal sonographic appearance of the female pelvis. Coffee Brewer: [facility] Transcribe Date/Time: Jun 22 2023 7:44P Dictated by : Vasu BURNS MD This examination was interpreted and the report reviewed and electronically signed by: Vasu BURNS MD on Jun 22 2023 7:48PM EST [id number] [facility] Urinalysis complete panel (U )on 06-22-2023 Bacteria LM.HPF (Urine sed) [#/Area] Few Abnormal None Seen [facility] Comment on above: Order Comment: Speci men Type: URINE SPECIMENOrdering Facility: [facility] Address: [address] [place] [address] Performed By: #### 2 4356-8 ####YARSANISM LABORATORYCLIA [id number] [address] [place] [address] [place] Bilirubin Ql (U) Negative Normal Negative [facility] Comment on above: Order Comment: Speci men Type: URINE SPECIMENOrdering Facility: [facility] Address: [address] [place] [address] Performed By: #### 2 4356-8 ####YARSANISM LABORATORYCLIA [id number] [address] [place] [address] [place] Clarity (Unsp spec) Clear Normal Clear [facility] Comment on above: Order Comment: Speci men Type: URINE SPECIMENOrdering Facility: [facility] Address: [address] [place] [address] Performed By: #### 2 4356-8 ####YARSANISM LABORATORYCLIA [id number] [address] [place] [address] STATES [facility] Color (U) Yellow Normal Yellow [facility] Comment on above: Order Comment: Speci men Type: URINE SPECIMENOrdering Facility: [facility] Address: [address] [place] [address] Performed By: #### 2 4356-8 ####YARSANISM LABORATORYCLIA [id number] [address] [place] [address] [place] Epithelial cells LM.HPF (Urine sed) [#/Area] Few Normal [facility] Comment on above: Order Comment: Speci men Type: URINE SPECIMENOrdering Facility: [facility] Address: [address] [place] [address] Performed By: #### 2 4356-8 ####YARSANISM LABORATORYCLIA [id number] [address] [place] [address] [place] Glucose Test strip (U) [Mass/Vol] Negative Normal Negative [facility] Comment on above: Order Comment: Speci men Type: URINE SPECIMENOrdering Facility: [facility] Address: [address] [place] [address] Performed By: #### 2 4356-8 ####YARSANISM LABORATORYCLIA [id number] [address] [place] [address] [place] Hemoglobin Ql (U) Negative Normal Negative [facility] Comment on above: Order Comment: Speci men Type: URINE SPECIMENOrdering Facility: [facility] Address: [address] [place] [address] Performed By: #### 2 4356-8 ####YARSANISM LABORATORYCLIA [id number] [address] [place], [place] [address] [place] Ketones Ql (U) Trace Abnormal Negative [facility] Comment on above: Order Comment: Speci men Type: URINE SPECIMENOrdering Facility: [facility] Address: [address] [place] [address] Performed By: #### 2 4356-8 ####YARSANISM LABORATORYCLIA [id number] [address] [place] [address] [place] Leukocyte esterase Test strip Ql (U) Negative Normal Negative [facility] Comment on above: Order Comment: Speci men Type: URINE SPECIMENOrdering Facility: [facility] Address: [address] [place] [address] Performed By: #### 2 4356-8 ####YARSANISM LABORATORYCLIA [id number] [address] [place] [address] [place] Nitrite Ql (U) Negative Normal Negative [facility] Comment on above: Order Comment: Speci men Type: URINE SPECIMENOrdering Facility: [facility] Address: [address] [place] [address] Performed By: #### 2 4356-8 ####YARSANISM LABORATORYCLIA [id number] [address] [place], [place] [id number] [place] pH (U) 6.5 [pH] Normal 5.0-8.0 [facility] Comment on above: Order Comment: Speci men Type: URINE SPECIMENOrdering Facility: [facility] Address: [address] [place] [address] Performed By: #### 2 4356-8 ####YARSANISM LABORATORYCLIA [id number] [address] [place], [place] [id number] [place] Protein (U) [Mass/Vol] Negative Normal Negative [facility] Comment on above: Order Comment: Speci men Type: URINE SPECIMENOrdering Facility: [facility] Address: [address] [place] [address] Performed By: #### 2 4356-8 ####YARSANISM LABORATORYCLIA [id number] [address] [place] [address] [place] RBC LM.HPF (Urine sed) [#/Area] 0-3 /HPF Normal 0-3 /HPF [facility] Comment on above: Order Comment: Speci men Type: URINE SPECIMENOrdering Facility: [facility] Address: [address] [place] [address] Performed By: #### 2 4356-8 ####YARSANISM LABORATORYCLIA [id number] [address] [place] [address] [place] Specific gravity (U) [Rel density] 1.020 Normal 1.005-1.030 [facility] Comment on above: Order Comment: Speci men Type: URINE SPECIMENOrdering Facility: [facility] Address: [address] [place] [address] Performed By: #### 2 4356-8 ####YARSANISM LABORATORYCLIA [id number] [address] [place] Urobilinogen Ql (U) 1.0 EU/dL Normal 0.2-1.0 EU/dL [facility] Comment on above: Order Comment: Speci men Type: URINE SPECIMENOrdering Facility: [facility] Address: [address] [place] [address] Performed By: #### 2 4356-8 ####YARSANISM LABORATORYCLIA [id number] [address] [place] WBC LM.HPF (Urine sed) [#/Area] 0-5 /HPF Normal 0-5 /HPF [facility] Comment on above: Order Comment: Speci men Type: URINE SPECIMENOrdering Facility: [facility] Address: [address] [place] [address] Performed By: #### 2 4356-8 ####YARSANISM LABORATORYCLIA [id number] [address] [place], [place] [id number] [place] Basic Metabolic Profon 05-30 Anion gap [Moles/Vol] 12 mmol/L Normal 9-17 [facility] Comment on above: Performed By: #### C DP, HCG, BMP, LIP, LIVP #### [facility] [address] [place], [place] [id number] Vacuum Metalizer Operator: Jennifer Freire MD BUN/CRE Ratio 7 Low 9-20 [facility] Comment on above: Performed By: #### C DP, HCG, BMP, LIP, LIVP #### [facility] [address] [place], [place] [id number] [employer] Operator: Jennifer Freire MD Calcium [Mass/Vol] 9.8 mg/dL Normal 8.6-10.4 [facility] Comment on above: Performed By: #### C DP, HCG, BMP, LIP, LIVP #### [facility] [address] [place] [address] Vacuum [employer] Operator: Jennifer Freire MD Chloride [Moles/Vol] 99 mmol/L Normal 98-107 [facility] Comment on above: Performed By: #### C DP, HCG, BMP, LIP, LIVP #### [facility] [address] [place] [address] Vac[employer] Operator: Jennifer Freire MD CO2 [Moles/Vol] 24 mmol/L Normal 20-31 [facility] Comment on above: Performed By: #### C DP, HCG, BMP, LIP, LIVP #### [facility] [address] [place] [id number] [employer] Operator: Jennifer Freire MD Creatinine [Mass/Vol] 0.7 mg/dL Normal 0.5-0.9 [facility] Comment on above: Performed By: #### C DP, HCG, BMP, LIP, LIVP #### [facility] [address] [place] [address] Vac[employer] Operator: Jennifer Freire MD GFR/1.73 sq M.predicted [...] C DP, HCG, BMP, LIP, LIVP #### [facility] [address] [place] [address] Vac[employer] Operator: Jennifer Freire MD Glucose [Mass/Vol] 97 mg/dL Normal 70-99 [facility] Comment on above: Performed By: #### C DP, HCG, BMP, LIP, LIVP #### [facility] [address] [place] [address] Vac[employer] Operator: Jennifer Freire MD Potassium [Moles/Vol] 3.9 mmol/L Normal 3.7-5.3 [facility] Comment on above: Performed By: #### C DP, HCG, BMP, LIP, LIVP #### [facility] [address] [place] [address] Vac[employer] Operator: Jennifer Freire MD Sodium [Moles/Vol] 135 mmol/L Normal 135-144 [facility] Comment on above: Performed By: #### C DP, HCG, BMP, LIP, LIVP #### [facility] [address] [place] [address] [employer] Operator: Jennifer Freire MD Urea nitrogen [Mass/Vol] 5 mg/dL Low 6-20 [facility] Comment on above: Performed By: #### C DP, HCG, BMP, LIP, LIVP #### [facility] [address] [place] [address] [employer] Operator: Jennifer Freire MD CBC with Diffon 05-30-2023 Abs. Basophil 0.02 k/uL Normal 0.00-0.20 [facility] Comment on above: Performed By: #### C DP, HCG, BMP, LIP, LIVP #### [facility] [address] [place] [address] [employer] Operator: Jennifer Freire MD Abs.Imm.Granulocyte 0.00 k/uL Normal 0.00-0.30 [facility] Comment on above: Performed By: #### C DP, HCG, BMP, LIP, LIVP #### [facility] [address] [place] [address] [employer] Operator: Jennifer Freire MD Abs.Neutrophil (Seg) 2.21 k/uL Low 2.5-7.0 [facility] Comment on above: Performed By: #### C DP, HCG, BMP, LIP, LIVP #### [facility] [address] [place] [address] [employer] Operator: Jennifer Freire MD Basophils/100 WBC (Bld) 0 % Normal 0-2 [facility] Comment on above: Performed By: #### C DP, HCG, BMP, LIP, LIVP #### [facility] [address] [place] [address] [employer] Operator: Jennifer Freire MD Eosinophils (Bld) [#/Vol] 0.05 10*3/uL Normal 0.00-0.40 [facility] Comment on above: Performed By: #### C DP, HCG, BMP, LIP, LIVP #### [facility] [address] [place] [address] Vac[employer] Operator: Jennifer Freire MD Eosinophils/100 WBC (Bld) 1 % Normal 0-5 [facility] Comment on above: Performed By: #### C DP, HCG, BMP, LIP, LIVP #### [facility] [address] [place] [id number] [employer] Operator: Jennifer Freire MD Erythrocyte distribution width (RBC) [Ratio] 16.5 % High 12.1-15.2 [facility] Comment on above: Performed By: #### C DP, HCG, BMP, LIP, LIVP #### [facility] [address] [place] [id number] [employer] Operator: Jennifer Freire MD Hematocrit (Bld) [Volume fraction] 37.2 % Normal 36.0-46.0 [facility] Comment on above: Performed By: #### C DP, HCG, BMP, LIP, LIVP #### [facility] [address] [place] [address] [employer] Operator: Jennifer Freire MD Hemoglobin (Bld) [Mass/Vol] 11.7 g/dL Low 12.0-16.0 [facility] Comment on above: Performed By: #### C DP, HCG, BMP, LIP, LIVP #### [facility] [address] [place] [id number] [employer] Operator: Jennifer Freire MD Immature granulocytes/100 WBC (Bld) 0 % Normal 0-5 [facility] Comment on above: Performed By: #### C DP, HCG, BMP, LIP, LIVP #### [facility] [address] [place] [address] Vacuum [employer]izer Operator: Jennifer Freire MD Lymphocytes (Bld) [#/Vol] 2.45 10*3/uL Normal 1.00-4.80 [facility] Comment on above: Performed By: #### C DP, HCG, BMP, LIP, LIVP #### [facility] [address] [place] [address] Vac[employer] Operator: Jennifer Freire MD Lymphocytes/100 WBC (Bld) 48 % High 15-40 [facility] Comment on above: Performed By: #### C DP, HCG, BMP, LIP, LIVP #### [facility] [address] [place] [address] Vac[employer] Operator: Jennifer Freire MD MCH (RBC) [Entitic mass] 24.2 pg Low 26.0-34.0 [facility] Comment on above: Performed By: #### C DP, HCG, BMP, LIP, LIVP #### [facility] [address] [place] [id number] [employer] Operator: Jennifer Freire MD MCHC (RBC) [Mass/Vol] 31.5 g/dL Normal 31.0-37.0 [facility] Comment on above: Performed By: #### C DP, HCG, BMP, LIP, LIVP #### [facility] [address] [place] [address] [employer]uum [employer] Operator: Jennifer Freire MD MCV (RBC) [Entitic vol] 76.9 fL Low 80.0-100.0 [facility] Comment on above: Performed By: #### C DP, HCG, BMP, LIP, LIVP #### [facility] [address] [place] [address] Vac[employer]izer Operator: Jennifer Freire MD Monocytes (Bld) [#/Vol] 0.37 10*3/uL Normal 0.00-1.00 [facility] Comment on above: Performed By: #### C DP, HCG, BMP, LIP, LIVP #### [facility] [address] [place] [address] Vac[employer]izer Operator: Jennifer Freire MD Monocytes/100 WBC (Bld) 7 % Normal 4-8 [facility] Comment on above: Performed By: #### C DP, HCG, BMP, LIP, LIVP #### [facility] [address] [place] [id number] Vac[employer]izer Operator: Jennifer Freire MD Neutrophil (Seg) 43 % Low 47-75 [facility] Comment on above: Performed By: #### C DP, HCG, BMP, LIP, LIVP #### [facility] [address] [place], [place] [id number] [employer]izer Operator: Jennifer Freire MD Platelet mean volume (Bld) [Entitic vol] 8.7 fL Normal 6.0-12.0 [facility] Comment on above: Performed By: #### C DP, HCG, BMP, LIP, LIVP #### [facility] [address] [place] [phone] Vac[employer] Operator: Jennifer Freire MD Platelets (Bld) [#/Vol] 512 10*3/uL High 140-450 [facility] Comment on above: Performed By: #### C DP, HCG, BMP, LIP, LIVP #### [facility] [address] [place] [address] Vacuum [employer]izer Operator: Jennifer Freire MD RBC (Bld) [#/Vol] 4.84 10*6/uL Normal 4.00-5.20 [facility] Comment on above: Performed By: #### C DP, HCG, BMP, LIP, LIVP #### [facility] [address] [place] [id number] Vac[employer]izer Operator: Jennifer Freire MD WBC (Bld) [#/Vol] 5.1 10*3/uL Normal 3.5-11.0 [facility] Comment on above: Performed By: #### C DP, HCG, BMP, LIP, LIVP #### [facility] [address] [place] [id number] Vacuum Metalizer Operator: Jennifer Freire MD CT ABDOMEN PELVIS [...] 05-30-20 HCG Screen, Blood Negative Normal NEG [facility] Comment on above: Result Comment: Spec imens with hCG levels near the threshold of the test (25 mIU/mL) may give a negative or indeterminate result. In such cases, another test should be performed with a new specimen in 48-72 hours. If early is suspected clinically in this setting, correlation with quantitative serum b-hCG level is suggested. [facility] has confirmed the use of plasma for this test. This has not been cleared or approved by the U.[place]. Food and Drug Administration. The FDA has determined that such clearance is not necessary. Performed By: #### C DP, HCG, BMP, LIP, LIVP #### [facility] [address] [place] [address] Vacuum Metalizer Operator: Jennifer Freire MD Lipaseon 05-30-2023 Lipase [Catalytic activity/Vol] 28 U/L Normal 13-60 [facility] Comment on above: Performed By: #### C DP, HCG, BMP, LIP, LIVP #### [facility] [address] [place] [address] Vacuum Metalizer Operator: Jennifer Freire MD Liver Profileon 05-30-2023 Albumin [Mass/Vol] 4.3 g/dL Normal 3.5-5.2 [facility] Comment on above: Performed By: #### C DP, HCG, BMP, LIP, LIVP #### [facility] [address] [place] [address] Vacuum Metalizer Operator: Jennifer Freire MD Alkaline Phos 86 U/L Normal 35-104 [facility] Comment on above: Performed By: #### C DP, HCG, BMP, LIP, LIVP #### [facility] [address] [place] [id number] Vacuum Metalizer Operator: Jennifer Freire MD ALT [Catalytic activity/Vol] 14 U/L Normal 5-33 [facility] Comment on above: Performed By: #### C DP, HCG, BMP, LIP, LIVP #### [facility] [address] [place] [phone] Vacuum Metalizer Operator: Jennifer Freire MD AST [Catalytic activity/Vol] 18 U/L Normal <32 [facility] Comment on above: Performed By: #### C DP, HCG, BMP, LIP, LIVP #### [facility] [address] [place] [phone] Vacuum Metalizer Operator: Jennifer Freire MD Bilirubin [Mass/Vol] 0.5 mg/dL Normal 0.3-1.2 [facility] Comment on above: Performed By: #### C DP, HCG, BMP, LIP, LIVP #### [facility] [address] [place] [phone] Vacuum Metalizer Operator: Jennifer Freire MD Bilirubin, Indirect Can not be calculated Normal 0.0-1 .0 [facility] Comment on above: Performed By: #### C DP, HCG, BMP, LIP, LIVP #### [facility] [address] [place] [address] Vacuum Metalizer Operator: Jennifer Freire MD Bilirubin.indirect [Mass/Vol] mg/dL Normal <0.3 [facility] Comment on above: Performed By: #### C DP, HCG, BMP, LIP, LIVP #### [facility] [address] [place], [place] [id number] Vacuum Metalizer Operator: Jennifer Freire MD Protein [Mass/Vol] 7.9 g/dL Normal 6.4-8.3 [facility] Comment on above: Performed By: #### C DP, HCG, BMP, LIP, LIVP #### [facility] [address] [place], [place] [id number] Vacuum Metalizer Operator: Jennifer Freire MD Urinalysis, Routineon 2022 Bilirubin, SemiQt,Ur Negative Normal NEG [facility] Comment on above: Performed By: #### U A #### [facility] [address] [place], [place] [id number] Vacuum Metalizer Operator: Jennifer Freire MD Blood, Urine Negative Normal NEG [facility] Comment on above: Performed By: #### U A #### [facility] [address] [place], [place] [id number] Vacuum Metalizer Operator: Jennifer Freire MD Clarity (U) Clear Normal CLEAR [facility] Comment on above: Performed By: #### U A #### [facility] [address] [place], [place] [id number] Vacuum Metalizer Operator: Jennifer Freire MD Color (U) Yellow Normal YEL [facility] Comment on above: Performed By: #### U A #### [facility] [address] [place], [place] [id number] Vacuum Metalizer Operator: Jennifer Freire MD Comment Normal [facility] Comment on above: Performed By: #### U A #### [facility] [address] [place], [place] [id number] Vacuum Metalizer Operator: Jennifer Freire MD Glucose Ql (U) Negative Normal NEG [facility] Comment on above: Performed By: #### U A #### [facility] [address] [place] [address] Vacuum Metalizer Operator: Jennifer Freire MD Ketones Ql (U) Negative Normal NEG [facility] Comment on above: Performed By: #### U A #### [facility] [address] [place] [address] Vacuum Metalizer Operator: Jennifer Freire MD Leukocyte esterase Test strip Ql (U) Negative Normal NEG [facility] Comment on above: Performed By: #### U A #### [facility] [address] [place] [address] Vacuum Metalizer Operator: Jennifer Freire MD Nitrite,Ur Negative Normal NEG [facility] Comment on above: Performed By: #### U A #### [facility] [address] [place], [place] [id number] Vacuum Metalizer Operator: Jennifer Freire MD PH,Ur 8.0 Normal 5.0-8.0 [facility] Comment on above: Performed By: #### U A #### [facility] [address] [place], [place] [id number] Vacuum Metalizer Operator: Jennifer Freire MD Protein Ql (U) Negative Normal NEG [facility] Comment on above: Performed By: #### U A #### [facility] [address] [place], [place] [address] Vacuum Metalizer Operator: Jennifer Freire MD Spec. [place],Ur 1.010 Normal 1.005-1.030 [facility] Comment on above: Performed By: #### U A #### [facility] [address] [place], [place] [id number] Vacuum Metalizer Operator: Jennifer Freire MD Urobilinogen,Ur Normal Normal 0.0-1.0 [facility] Comment on above: Performed By: #### U A #### [facility] [address] [place], [place] [id number] Vacuum Metalizer Operator: Jennifer Freire MD Alanine aminotransferase [En zymatic activity/volume] in Serum or PlasmaOrdered By: Elier Manuel on 04-30-2023 ALT [Catalytic activity/Vol] 15 U/L Normal 7-52 [facility] Comment on above: Performed By: #### H CGQNT #### [place] [address] [place] Albumin [Mass/volume] in Ser um or Plasma by Bromocresol green (BCG) dye binding methoOrdered By: Elier Manuel on 04-30-2023 Albumin BCG dye [Mass/Vol] 4.3 g/dL 3.5-5.7 [facility] Alkaline phosphatase [Enzyma tic activity/volume] in Serum or PlasmaOrdered By: Elier Manuel on 04-30-2023 ALP [Catalytic activity/Vol] 68 U/L Normal 34-104 [facility] Comment on above: Performed By: #### H CGQNT #### [address] Aspartate aminotransferase [ Enzymatic activity/volume] in Serum or PlasmaOrdered By: Elierjaqui Jackson on 04-30-2023 AST [Catalytic activity/Vol] 17 U/L Normal 13-39 [facility] Comment on above: Performed By: #### H CGQNT #### [address] Automated basophil %Ordered By: Elier Jackson on 04-30-2023 Basophils/100 WBC (Bld) 1.3 % Normal . [facility] Comment on above: Performed By: #### H CGQNT #### [address] Automated basophil countOrde red By: Elier Jackson on 04-30-2023 Basophils (Bld) [#/Vol] 0.0 10*3/uL Normal 0.0-0.2 [facility] Comment on above: Result Comment: PERF ORMED BY: [place] [address] PATHOLOGIST [employer]ER FARNAZ ZULETA M.D. Performed By: #### H CGQNT #### [address] Automated blood monocyte cou ntOrdered By: Elier Jackson on 04-30-2023 Monocytes (Bld) [#/Vol] 0.3 10*3/uL Normal 0.0-0.8 [facility] Comment on above: Performed By: #### H CGQNT #### [address] Automated eosinophil %Ordere d By: Elier Velásquezarleen on 04-30-2023 Eosinophils/100 WBC (Bld) 0.6 % Normal . [facility] Comment on above: Performed By: #### H CGQNT #### [address] Automated eosinophil countOr dered By: Elier Velásquezarleen on 04-30-2023 Eosinophils (Bld) [#/Vol] 0.0 10*3/uL Normal 0.0-0.45 [facility] Comment on above: Performed By: #### H CGQNT #### [address] Automated erythrocytes count in urine sediment (number/area)Ordered By: Elier Velásquezarleen on 04-30-2023 RBC Auto (Urine sed) [#/Area] 5-9 [HPF] 0-4 [facility] Automated leukocytes count i n urine sediment (number/area)Ordered By: Elier Velásquezarleen on 04-30-2023 WBC Auto (Urine sed) [#/Area] 0-1 [HPF] 0-4 [facility] Automated monocyte %Ordered By: Elier Velásquezarleen on 04-30-2023 Monocytes/100 WBC (Bld) 7.0 % Normal . [facility] Comment on above: Performed By: #### H CGQNT #### [address] Automated neutrophil %Ordere d By: Elier Velásquezarleen on 04-30-2023 Neutrophils/100 WBC (Bld) 46.9 % Normal . [facility] Comment on above: Performed By: #### H CGQNT #### [address] [place] [address] [place] Automated urine color determ inationOrdered By: Elier Jackson on 04-30-2023 Color (U) Yellow Normal Yellow [facility] Comment on above: Order Comment: Name Collection Type:: Clean-Voided Midstream Performed By: #### U HCG, ADDONUAPLUS #### [address] Basic Metabolic Panelon 04-13 Creatinine Clr Calc Pharmacy 107.67 Normal [facility] Comment on above: Performed By: #### H CGQNT #### [address] GFR/1.73 sq M.predicted MDRD (S/P/Bld) [Vol rate/Area] mL/min/{1.73_m2} Normal [facility] Comment on above: Performed By: #### H CGQNT #### [address] Bilirubin Test strip Ql (U)O rdered By: Elier Jackson on 04-30-2023 Bilirubin Ql (U) Negative Negative [facility] Bilirubin.direct [Mass/volum e] in Serum or PlasmaOrdered By: Elier Jackson on 04-30-2023 Bilirubin.direct [Mass/Vol] 0.10 mg/dL 0.03-0.18 [facility] Bilirubin.total [Mass/volume ] in Serum or PlasmaOrdered By: Elier Jcakson on 04-30-2023 Bilirubin [Mass/Vol] 0.4 mg/dL Normal 0.3-1.0 [facility] Comment on above: Performed By: #### H CGQNT #### [facility] [address] [place] [address] Calcium [Mass/volume] in Ser um or PlasmaOrdered By: Elier Jackson on 04-30-2023 Calcium [Mass/Vol] 9.2 mg/dL Normal 8.6-10.3 [facility] Comment on above: Performed By: #### H CGQNT #### [address] Carbon dioxide, total [Moles /volume] in Serum or PlasmaOrdered By: Elier Manuel on 04-30-2023 CO2 [Moles/Vol] 20.1 mmol/L Low 21.0-31.0 [facility] Comment on above: Performed By: #### H CGQNT #### [address] Chloride [Moles/volume] in S binu or PlasmaOrdered By: Elier Jackson on 04-30-2023 Chloride [Moles/Vol] 109 mmol/L High 98-107 [facility] Comment on above: Performed By: #### H CGQNT #### [address] Complete Blood Count Auto Di ffon 04-30-2023 Mean Corpuscular HGB Conc 34.7 g/dL Normal 32.0-35.0 [facility] Comment on above: Performed By: #### H CGQNT #### [address] Monocytes/100 WBC (Bld) 16.58 % Normal 0.00-20.00 [facility] Comment on above: Performed By: #### H CGQNT #### [address] NRBC% 0.1 /100{WBC} Normal 0-0.5 [facility] Comment on above: Performed By: #### H CGQNT #### [address] Creatinine [Mass/volume] in Serum or PlasmaOrdered By: Elier Jackson on 04-30-2023 Creatinine [Mass/Vol] 0.65 mg/dL Normal 0.60-1.20 [facility] Comment on above: Performed By: #### H CGQNT #### [place] [address] [place] Dipstick and Microscopicon 1 06-30-2022 Appearance (U) Clear Normal Clear [facility] Comment on above: Order Comment: Name Collection Type:: Clean-Voided Midstream Performed By: #### U HCG, ADDONUAPLUS #### [facility] [address] [place] [address] Bacteria,Urine None Seen Normal None Seen [facility] Comment on above: Order Comment: Name Collection Type:: Clean-Voided Midstream Performed By: #### U HCG, ADDONUAPLUS #### [facility] [address] [place] [address] Bilirubin,Urine Negative Normal Negative [facility] Comment on above: Order Comment: Name Collection Type:: Clean-Voided Midstream Performed By: #### U HCG, ADDONUAPLUS #### [address] Glucose Ql (U) Normal Normal Normal [facility] Comment on above: Order Comment: Name Collection Type:: Clean-Voided Midstream Performed By: #### U HCG, ADDONUAPLUS #### [place] [address] [place] Hyaline Casts,Urine 0-8 Normal 0-8 [facility] Comment on above: Order Comment: Name Collection Type:: Clean-Voided Midstream Performed By: #### U HCG, ADDONUAPLUS #### [facility] [address] [place] [address] Ketones Ql (U) Negative Normal Negative [facility] Comment on above: Order Comment: Name Collection Type:: Clean-Voided Midstream Performed By: #### U HCG, ADDONUAPLUS #### [facility] [address] [place] [address] [place] Leukocyte esterase Test strip Ql (U) Negative Normal Negative [facility] Comment on above: Order Comment: Name Collection Type:: Clean-Voided Midstream Performed By: #### U HCG, ADDONUAPLUS #### [place] [address] [place] Nitrite,Urine Negative Normal Negative [facility] Comment on above: Order Comment: Name Collection Type:: Clean-Voided Midstream Performed By: #### U HCG, ADDONUAPLUS #### [address] Occult Blood,Urine 2+ High Negative [facility] Comment on above: Order Comment: Name Collection Type:: Clean-Voided Midstream Performed By: #### U HCG, ADDONUAPLUS #### [address] Protein,Urine Negative Normal Negative [facility] Comment on above: Order Comment: Name Collection Type:: Clean-Voided Midstream Performed By: #### U HCG, ADDONUAPLUS #### [address] RBC,Urine 5-9 High 0-4 [facility] Comment on above: Order Comment: Name Collection Type:: Clean-Voided Midstream Performed By: #### U HCG, ADDONUAPLUS #### [address] Specificy [place],Urine 1.018 Normal 1.001-1.030 [facility] Comment on above: Order Comment: Name Collection Type:: Clean-Voided Midstream Performed By: #### U HCG, ADDONUAPLUS #### [address] Squamous Epithelial Cell,Urine 0-1 Normal 0-2 [facility] Comment on above: Order Comment: Name Collection Type:: Clean-Voided Midstream Performed By: #### U HCG, ADDONUAPLUS #### [address] Urobilinogen,Urine Normal Normal Normal [facility] Comment on above: Order Comment: Name Collection Type:: Clean-Voided Midstream Performed By: #### U HCG, ADDONUAPLUS #### [place] [address] [place] WBC LM.HPF (Urine sed) [#/Area] 0 /[HPF] Normal 0-4 [facility] Comment on above: Order Comment: Name Collection Type:: Clean-Voided Midstream Performed By: #### U HCG, ADDONUAPLUS #### [address] Erythrocyte distribution wid th [Ratio] by Automated countOrdered By: Elier Velásquezarleen on 04-30-2023 Erythrocyte distribution width (RBC) [Ratio] 16.8 % High 11.9-15.3 [facility] Comment on above: Performed By: #### H CGQNT #### [facility] [address] Erythrocytes [#/volume] in B lood by Automated countOrdered By: Elier Manuel on 04-30-2023 RBC (Bld) [#/Vol] 3.68 10*6/uL Normal 3.60-5.[address] [facility] Comment on above: Performed By: #### H CGQNT #### [facility] [address] [place] [address] Glucose [Mass/volume] in Ser um or PlasmaOrdered By: Elierjaqui Jackson on 04-30-2023 Glucose [Mass/Vol] 100 mg/dL Normal 70-100 [facility] Comment on above: ADA recommended refe rence rangeRandom Glucose Reference Range is dependent on time and content of last meal. Glucose of more than 200 mg/dL in a nonstressed, ambulatory subject supports the diagnosis of Diabetes Mellitus. Result Comment: Elsie om Glucose Reference Range is dependent on time and content of last meal. Glucose of more than 200 mg/dL in a nonstressed, ambulatory subject supports the diagnosis of Diabetes Mellitus. ADA recommended reference range Performed By: #### H CGQNT #### [address] HCG ( test) IA.rapi d Ql (U)Ordered By: Elier Jackson on 04-30-2023 HCG ( test) Ql (U) Negative [facility] HCG,Urineon 04-30-2023 Beta HCG ( test) Ql (U) Negative Normal [facility] Comment on above: Order Comment: Name Collection Type:: Clean-Voided Midstream Result Comment: PERF ORMED BY: [place] [address] PATHOLOGIST [employer] WINDER FARNAZ ZULETA M.D. Performed By: #### U HCG, ADDONUAPLUS #### [address] Hematocrit [Volume Fraction] of Blood by Automated countOrdered By: Elier Jackson on 04-30-2023 Hematocrit (Bld) [Volume fraction] 32.3 % Low 34.0-46.4 [facility] Comment on above: Performed By: #### H CGQNT #### [address] Hemoglobin [Mass/volume] in BloodOrdered By: Elier Jackson on 04-30-2023 Hemoglobin (Bld) [Mass/Vol] 11.2 g/dL Low 11.8-15.4 [facility] Comment on above: Performed By: #### H CGQNT #### [address] Hepatic Panelon 04-30-2023 Albumin [Mass/Vol] 4.3 g/dL Normal 3.5-5.7 [facility] Comment on above: Performed By: #### H CGQNT #### [address] Bilirubin,Indirect 0.3 mg/dL Normal [facility] Comment on above: Performed By: #### H CGQNT #### [address] Bilirubin.indirect [Mass/Vol] 0.10 mg/dL Normal 0.03-0.18 [facility] Comment on above: Performed By: #### H CGQNT #### [address] Ketones Auto test strip (U) [Mass/Vol]Ordered By: Elier Jackson on 04-30-2023 Ketones (U) [Mass/Vol] Negative Negative [facility] - UrinalysisOrder ed By: Elier Jackson on 04-30-2023 Hyaline casts LM Ql (Urine sed) 0-8 [LPF] 0-8 [facility] Leukocytes [#/volume] correc flo for nucleated erythrocytes in Blood by Automated counOrdered By: Elier Jackson on 04-30-2023 WBC corrected for nucl RBC Auto (Bld) [#/Vol] 3.6 10*3/uL 3.8-11.6 [facility] Leukocytes [#/volume] in Blo od by Automated countOrdered By: Elier Jackson on 04-30-2023 WBC (Bld) [#/Vol] 3.6 10*3/uL Low 3.8-11.6 [facility] Comment on above: Performed By: #### H CGQNT #### [place] [address] [place] Lipase [Enzymatic activity/v olume] in Serum or PlasmaOrdered By: Elier Jackson on 04-30-2023 Lipase [Catalytic activity/Vol] 31.0 U/L Normal 11.0-82.0 [facility] Comment on above: Result Comment: PERF ORMED BY: [place] [address] PATHOLOGIST [employer] FARNAZ ZULETA M.D. Performed By: #### H CGQNT #### [place] [address] [place] Lymphocytes [#/volume] in Bl ood by Automated countOrdered By: Elier Jackson on 04-30-2023 Lymphocytes (Bld) [#/Vol] 1.6 10*3/uL Normal 1.00-4.8 [facility] Comment on above: Performed By: #### H CGQNT #### [facility] [address] [place] [address] [place] Lymphocytes/100 leukocytes i n Blood by Automated countOrdered By: Elier Jackson on 04-30-2023 Lymphocytes/100 WBC (Bld) 44.2 % Normal . [facility] Comment on above: Performed By: #### H CGQNT #### [place] [address] [place] MCH [Entitic mass] by Automa flo countOrdered By: Elier Jackson on 04-30-2023 MCH (RBC) [Entitic mass] 30.4 pg Normal 24.7-34.3 [facility] Comment on above: Performed By: #### H CGQNT #### [facility] [address] [place] [address] MCHC Auto (RBC) [Mass/Vol]Or dered By: Elier Jackson on 04-30-2023 MCHC (RBC) [Mass/Vol] 34.7 g/dL 32.0-35.0 [facility] MCV [Entitic volume] by Auto mated countOrdered By: Elier Jackson on 04-30-2023 MCV (RBC) [Entitic vol] 87.6 fL Normal 80-100 [facility] Comment on above: Performed By: #### H CGQNT #### [facility] [address] [place] [address] Monocyte distribution width [Entitic volume] in Blood by AutomatedOrdered By: Elier Jackson on 04-30-2023 Monocyte distribution width Auto (Bld) [Entitic vol] 16.58 % 0.00-20.00 [facility] Neutrophils [#/volume] in Bl ood by Automated countOrdered By: Elier Jackson on 04-30-2023 Neutrophils (Bld) [#/Vol] 1.7 10*3/uL Low 1.8-7.7 [facility] Comment on above: Performed By: #### H CGQNT #### [address] Nitrite Test strip Ql (U)Ord ered By: Elier Jackson on 04-30-2023 Nitrite Ql (U) Negative Negative [facility] No Panel InformationOrdered By: Elier Jackson on 04-30-2023 Estimated GFR (CKD-EPI) > 60.0 mL/Min [facility] Creatinine Clearance (Chem 107.67 [facility] Nucleated erythrocytes [Pres ence] in Blood by Automated countOrdered By: Elier Jackson on 04-30-2023 Nucleated RBC Auto Ql (Bld) 0.1 /100{WBC} 0-0.5 [facility] Platelet mean volume [Entiti c volume] in Blood by Automated countOrdered By: Elier Jackson on 04-30-2023 Platelet mean volume (Bld) [Entitic vol] 8.0 fL Normal 6.3-10.7 [facility] Comment on above: Performed By: #### H CGQNT #### [facility] [address] [place] [address] [place] Platelets [#/volume] in Bloo d by Automated countOrdered By: Elier Jackson on 04-30-2023 Platelets (Bld) [#/Vol] 415 10*3/uL Normal 150-450 [facility] Comment on above: Performed By: #### H CGQNT #### [facility] [address] Potassium [Moles/volume] in Serum or PlasmaOrdered By: Elier Jackson on 04-30-2023 Potassium [Moles/Vol] 3.8 mmol/L Normal 3.5-5.1 [facility] Comment on above: Performed By: #### H CGQNT #### [address] Protein Auto test strip (U) [Mass/Vol]Ordered By: Elier Jackson on 04-30-2023 Protein (U) [Mass/Vol] Negative Negative [facility] Protein [Mass/volume] in Ser um or PlasmaOrdered By: Elier Jackson on 04-30-2023 Protein [Mass/Vol] 7.6 g/dL Normal 6.4-8.9 [facility] Comment on above: Performed By: #### H CGQNT #### [facility] [address] [place] [address] Serum globulin measurement b y calculation (mass/volume)Ordered By: Elier Jackson on 04-30-2023 Globulin (S) [Mass/Vol] 3.3 g/dL Normal [facility] Comment on above: Performed By: #### H CGQNT #### [facility] [address] [place] [address] Serum or plasma albumin/glob ulin mass ratioOrdered By: Elier Jackson on 04-30-2023 Albumin/Globulin [Mass ratio] 1.3 {ratio} Normal [facility] Comment on above: Performed By: #### H CGQNT #### [address] Serum or plasma anion gap de terminationOrdered By: Elier Jackson on 04-30-2023 Anion gap [Moles/Vol] 14.7 mmol/L Normal 6.0-15.0 [facility] Comment on above: Performed By: #### H CGQNT #### [facility] [address] [place] [address] Serum or plasma non-glucuron idated bilirubin measurement (mass/volume)Ordered By: Elier Jackson on 04-30-2023 Bilirubin.indirect [Mass/Vol] 0.3 mg/dL [facility] Sodium [Moles/volume] in Ser um or PlasmaOrdered By: Elier Jackson on 04-30-2023 Sodium [Moles/Vol] 140 mmol/L Normal 136-145 [facility] Comment on above: Performed By: #### H CGQNT #### [address] Specific gravity Auto test s trip (U) [Rel density]Ordered By: Elier Jackson on 04-30-2023 Specific gravity (U) [Rel density] 1.018 1.001-1.030 [facility] Squamous epithelial cells de tection in urine sediment by light microscopyOrdered By: Elier Jackson on 04-30-2023 Epithelial cells.squamous LM Ql (Urine sed) 0-1 [HPF] 0-2 [facility] US pelvic completeon 023 US pelvic complete [facility] [place] [address] Ultrasound Report Signed Patient: Antonia Noyola MR#: [id number] : 1985 Acct:[id number] Age/Sex: 38 / F ADM Date: 04/30/23 Loc: ER Room: Type: [facility] ER Attending Dr: Ordering Provider: Elier Jackson DO Date of Service: 04/30/23 US/US pelvic complete: L pelvic pain ([id number]) US/US transvaginal: LT PELVIC PAIN Copies to: [...] Betancur Jr., D.OEbenezer04/30/2023 6:24 PM Dictation Location: [place] [address] Tech: Brooke Naveen Transcribed By: AMBER 04/30/231823 Dictated By: Dennis Betancur Jr, DO 04/30/231820 Signed By: 04/30/231823 Normal [facility] Urea nitrogen [Mass/volume] in Serum or PlasmaOrdered By: Elier Jackson on 04-30-2023 Urea nitrogen [Mass/Vol] 6 mg/dL Low 7-25 [facility] Comment on above: Performed By: #### H CGQNT #### [facility] [address] [place] [address] Urine bacteria detection by automated methodOrdered By: Elier Jackson on 04-30-2023 Bacteria Auto Ql (U) None seen None Seen [facility] Urine clarity by refractomet ry automatedOrdered By: Elier Jackson on 04-30-2023 Clarity Refractometry automated (U) Clear Clear [facility] Urine glucose measurement by automated test strip (mass/volume)Ordered By: Elier Jackson on 04-30-2023 Glucose Auto test strip (U) [Mass/Vol] Normal mg/dL Normal [facility] Urine hemoglobin detection b y automated test stripOrdered By: Elier Jackson on 04-30-2023 Hemoglobin Auto test strip Ql (U) 2+ Negative [facility] Urine leukocyte esterase det ection by automated test stripOrdered By: Elier Jackson on 04-30-2023 Leukocyte esterase Auto test strip Ql (U) Negative Negative [facility] Urine pH measurement by auto mated test stripOrdered By: Elier Jackson on 04-30-2023 pH (U) 5.5 [pH] Normal 5.0-9.0 [facility] Comment on above: Order Comment: Name Collection Type:: Clean-Voided Midstream Performed By: #### U HCG, ADDONUAPLUS #### [facility] [address] Urobilinogen Auto test strip (U) [Mass/Vol]Ordered By: Elier Jackson on 04-30-2023 Urobilinogen (U) [Mass/Vol] Normal mg/dL Normal [facility] CHEMISTRYOrdered By: SYSTEM SYSTEM on 04-24-2023 Anion gap [Moles/Vol] 14 mmol/L Normal 6 - 16 mEq/L [facility] Remisol Calcium [Mass/Vol] 9.4 mg/dL Normal 8.9 - 11. 1 mg/dL [facility] Chloride [Moles/Vol] 105 mmol/L Normal 101 - 1 11 mmol/L [facility] CO2 [Moles/Vol] 23 mmol/L Normal 21 - 31 mmol/L [facility] Remisol Creatinine [Mass/Vol] 0.7 mg/dL Normal 0.5 - 1.3 mg/dL [facility] Remisol GFR/1.73 sq M.predicted among non-blacks MDRD (S/P/Bld) [Vol rate/Area] 115 mL/min/1.73 m2 Normal >=59mL/min/ 1.73 m2 [facility] Chem S Comment on above: Interpretive Data: [...] PM) Normal Negative [facility] UA Auto SS Flowella.plasma/Flowella. RBC (Bld) [Mass ratio] 0-3 /HPF Normal [...] [facility] UA Auto SS Urobilinogen Qn (U) [id number] {Ivone'U}/dL Normal 0.0 - 1.0 EU/dL [facility] UA Auto SS WBC Auto Ql (U) Trace *ABN* (04/24/23 2:56 PM) Invalid Interpretation Code Negative [facility] UA Auto SS WBC LM.HPF (Urine sed) [#/Area] 0-5 /HPF Normal 0-5/HPF [facility] UA Auto SS Anisocytosis [Presence] in B lood by Light microscopyOrdered By: Ming Childress on 04-02-2023 Anisocytosis Ql (Bld) Moderate Normal [facility] Comment on above: Performed By: #### U HCG, ADDONUAPLUS #### [address] Automated erythrocytes count in urine sediment (number/area)Ordered By: Ming Childress on 04-02-2023 RBC Auto (Urine sed) [#/Area] 20-49 [HPF] 0-4 [facility] Automated leukocytes count i n urine sediment (number/area)Ordered By: Ming Childress on 04-02-2023 WBC Auto (Urine sed) [#/Area] 3-4 [HPF] 0-4 [facility] Automated urine color determ inationOrdered By: Ming Childress on 04-02-2023 Color (U) Yellow Normal Yellow [facility] Comment on above: Order Comment: Name Collection Type:: Clean-Voided Midstream Performed By: #### U HCG, ADDONUAPLUS #### [address] Basic Metabolic Panelon 03-14 Creatinine Clr Calc Pharmacy 97.72 Normal [facility] Comment on above: Result Comment: PERF ORMED BY: [place] [address] PATHOLOGIST [employer] W[employer]ER FARNZA ZULETA M.D. Performed By: #### U HCG, ADDONUAPLUS #### [address] GFR/1.73 sq M.predicted MDRD (S/P/Bld) [Vol rate/Area] mL/min/{1.73_m2} Normal [facility] Comment on above: Performed By: #### U HCG, ADDONUAPLUS #### [address] Basophils Auto (Bld) [#/Vol] Ordered By: Ming Childress on 04-02-2023 Basophils (Bld) [#/Vol] N/A F [facility] Basophils/100 WBC Auto (Bld) Ordered By: Ming Childress on 04-02-2023 Basophils/100 WBC (Bld) N/A F [facility] Basophils/100 leukocytes in Blood by Manual countOrdered By: Ming Childress on 04-02-2023 Basophils/100 WBC (Bld) 1 % Normal 0-2 F [facility] Comment on above: Performed By: #### U HCG, ADDONUAPLUS #### [facility] [address] [place] [address] Bilirubin Test strip Ql (U)O rdered By: Ming Childress on 04-02-2023 Bilirubin Ql (U) Negative Negative [facility] Calcium [Mass/volume] in Ser um or PlasmaOrdered By: Ming Childress on 04-02-2023 Calcium [Mass/Vol] 9.2 mg/dL Normal 8.6-10.3 [facility] Comment on above: Performed By: #### U HCG, ADDONUAPLUS #### [facility] [address] Carbon dioxide, total [Moles /volume] in Serum or PlasmaOrdered By: Ming Childress on 04-02-2023 CO2 [Moles/Vol] 18.5 mmol/L Low 21.0-31.0 [facility] Comment on above: Performed By: #### U HCG, ADDONUAPLUS #### [address] Chloride [Moles/volume] in S binu or PlasmaOrdered By: Ming Childress on 04-02-2023 Chloride [Moles/Vol] 108 mmol/L High 98-107 [facility] Comment on above: Performed By: #### U HCG, ADDONUAPLUS #### [address] Creatinine [Mass/volume] in Serum or PlasmaOrdered By: Ming Childress on 04-02-2023 Creatinine [Mass/Vol] 0.84 mg/dL Normal 0.60-1.20 [facility] Comment on above: Performed By: #### U HCG, ADDONUAPLUS #### [address] Diff and CBCon 04-02-2023 Hypochromasia Slight Normal [facility] Comment on above: Performed By: #### U HCG, ADDONUAPLUS #### [address] Mean Corpuscular HGB Conc 31.8 g/dL Low 32.0-35.0 [facility] Comment on above: Performed By: #### U HCG, ADDONUAPLUS #### [place] [address] [place] Monocytes/100 WBC (Bld) 18.83 % Normal 0.00-20.00 [facility] Comment on above: Performed By: #### U HCG, ADDONUAPLUS #### [address] Nucleated Red Blood Cell 3 /100{WBC} High 0-0 [facility] Comment on above: Performed By: #### U HCG, ADDONUAPLUS #### [address] Ovalocytes Slight Normal [facility] Comment on above: Performed By: #### U HCG, ADDONUAPLUS #### [address] Platelet Estimate Increased Normal Normal [facility] Comment on above: Performed By: #### U HCG, ADDONUAPLUS #### [address] Platelet Morphology Normal Normal Normal [facility] Comment on above: Result Comment: PERF ORMED BY: [place] [address] PATHOLOGIST [employer] W[employer]ER FARNAZ ZULETA M.D. Performed By: #### U HCG, ADDONUAPLUS #### [address] Poikilocytosis Slight Normal [facility] Comment on above: Performed By: #### U HCG, ADDONUAPLUS #### [address] Polychromasia Moderate Normal [facility] Comment on above: Performed By: #### U HCG, ADDONUAPLUS #### [place] [address] [place] Smudge Cells Slight Normal [facility] Comment on above: Performed By: #### U HCG, ADDONUAPLUS #### [address] Toxic Vacuolation Slight Normal [facility] Comment on above: Performed By: #### U HCG, ADDONUAPLUS #### [place] [address] [place] Dipstick and Microscopicon 1 Appearance (U) Clear Normal Clear [facility] Comment on above: Order Comment: Name Collection Type:: Clean-Voided Midstream Performed By: #### U HCG, ADDONUAPLUS #### [facility] [address] [place] [address] Bacteria,Urine None Seen Normal None Seen [facility] Comment on above: Order Comment: Name Collection Type:: Clean-Voided Midstream Performed By: #### U HCG, ADDONUAPLUS #### [facility] [address] [place] [address] Bilirubin,Urine Negative Normal Negative [facility] Comment on above: Order Comment: Name Collection Type:: Clean-Voided Midstream Performed By: #### U HCG, ADDONUAPLUS #### [address] Glucose Ql (U) Normal Normal Normal [facility] Comment on above: Order Comment: Name Collection Type:: Clean-Voided Midstream Performed By: #### U HCG, ADDONUAPLUS #### [place] [address] [place] Hyaline Casts,Urine 0-8 Normal 0-8 [facility] Comment on above: Order Comment: Name Collection Type:: Clean-Voided Midstream Performed By: #### U HCG, ADDONUAPLUS #### [address] Ketones Ql (U) Trace High Negative [facility] Comment on above: Order Comment: Name Collection Type:: Clean-Voided Midstream Performed By: #### U HCG, ADDONUAPLUS #### [address] Leukocyte esterase Test strip Ql (U) 1+ High Negative [facility] Comment on above: Order Comment: Name Collection Type:: Clean-Voided Midstream Performed By: #### U HCG, ADDONUAPLUS #### [address] Nitrite,Urine Negative Normal Negative [facility] Comment on above: Order Comment: Name Collection Type:: Clean-Voided Midstream Performed By: #### U HCG, ADDONUAPLUS #### [address] Occult Blood,Urine 3+ High Negative [facility] Comment on above: Order Comment: Name Collection Type:: Clean-Voided Midstream Performed By: #### U HCG, ADDONUAPLUS #### [address] Protein,Urine Negative Normal Negative [facility] Comment on above: Order Comment: Name Collection Type:: Clean-Voided Midstream Performed By: #### U HCG, ADDONUAPLUS #### [address] RBC,Urine 20-49 High 0-4 [facility] Comment on above: Order Comment: Name Collection Type:: Clean-Voided Midstream Performed By: #### U HCG, ADDONUAPLUS #### [address] Specificy [place],Urine 1.018 Normal 1.001-1.030 [facility] Comment on above: Order Comment: Name Collection Type:: Clean-Voided Midstream Performed By: #### U HCG, ADDONUAPLUS #### [address] Squamous Epithelial Cell,Urine 3-4 High 0-2 [facility] Comment on above: Order Comment: Name Collection Type:: Clean-Voided Midstream Performed By: #### U HCG, ADDONUAPLUS #### [address] Urobilinogen,Urine Normal Normal Normal [facility] Comment on above: Order Comment: Name Collection Type:: Clean-Voided Midstream Performed By: #### U HCG, ADDONUAPLUS #### [place] [address] [place] WBC,Urine 3-4 Normal 0-4 [facility] Comment on above: Order Comment: Name Collection Type:: Clean-Voided Midstream Performed By: #### U HCG, ADDONUAPLUS #### [place] [address] [place] Eosinophils Auto (Bld) [#/Vo l]Ordered By: Mingsil Childress on 04-02-2023 Eosinophils (Bld) [#/Vol] N/A [facility] Eosinophils/100 WBC Auto (Bl d)Ordered By: Ming Monroe on 04-02-2023 Eosinophils/100 WBC (Bld) N/A [facility] Eosinophils/100 leukocytes i n Blood by Manual countOrdered By: Ming Monroe on 04-02-2023 Eosinophils/100 WBC (Bld) 4 % High 1-3 [facility] Comment on above: Performed By: #### U HCG, ADDONUAPLUS #### [facility] [address] [place] [address] Erythrocyte distribution wid th [Ratio] by Automated countOrdered By: Ming Childress on 04-02-2023 Erythrocyte distribution width (RBC) [Ratio] 15.2 % Normal 11.9-15.3 [facility] Comment on above: Performed By: #### U HCG, ADDONUAPLUS #### [facility] [address] [place] [address] Erythrocytes [#/volume] in B lood by Automated countOrdered By: Mingsil Childress on 04-02-2023 RBC (Bld) [#/Vol] 4.67 10*6/uL Normal 3.60-5.[address] [facility] Comment on above: Performed By: #### U HCG, ADDONUAPLUS #### [facility] [address] [place] [address] [place] Glucose [Mass/volume] in Ser um or PlasmaOrdered By: Ming Childress on 04-02-2023 Glucose [Mass/Vol] 94 mg/dL Normal 70-100 [facility] Comment on above: ADA recommended refe rence rangeRandom Glucose Reference Range is dependent on time and content of last meal. Glucose of more than 200 mg/dL in a nonstressed, ambulatory subject supports the diagnosis of Diabetes Mellitus. Result Comment: Elsie om Glucose Reference Range is dependent on time and content of last meal. Glucose of more than 200 mg/dL in a nonstressed, ambulatory subject supports the diagnosis of Diabetes Mellitus. ADA recommended reference range Performed By: #### U HCG, ADDONUAPLUS #### [facility] [address] [place] [address] HCG ( test) IA.rapi d Ql (U)Ordered By: Ming Childress on 04-02-2023 HCG ( test) Ql (U) Negative [facility] HCG,Urineon 04-02-2023 Beta HCG ( test) Ql (U) Negative Normal [facility] Comment on above: Order Comment: Name Collection Type:: Clean-Voided Midstream Result Comment: PERF ORMED BY: [place] [address] PATHOLOGIST [employer] FARNAZ ZULETA M.D. Performed By: #### U HCG, ADDONUAPLUS #### [address] Hematocrit [Volume Fraction] of Blood by Automated countOrdered By: Ming Childress on 04-02-2023 Hematocrit (Bld) [Volume fraction] 36.1 % Normal 34.0-46.4 [facility] Comment on above: Performed By: #### U HCG, ADDONUAPLUS #### [address] Hemoglobin [Mass/volume] in BloodOrdered By: Ming Childress on 04-02-2023 Hemoglobin (Bld) [Mass/Vol] 11.5 g/dL Low 11.8-15.4 [facility] Comment on above: Performed By: #### U HCG, ADDONUAPLUS #### [address] Hypochromia LM Ql (Bld)Order ed By: Ming Childress on 04-02-2023 Hypochromia Ql (Bld) Slight [facility] Ketones Auto test strip (U) [Mass/Vol]Ordered By: Ming Childress on 04-02-2023 Ketones (U) [Mass/Vol] Trace Negative [facility] - UrinalysisOrder ed By: Ming Childress on 04-02-2023 Hyaline casts LM Ql (Urine sed) 0-8 [LPF] 0-8 [facility] Leukocytes [#/volume] correc flo for nucleated erythrocytes in Blood by Automated counOrdered By: Ming Childress on 04-02-2023 WBC corrected for nucl RBC Auto (Bld) [#/Vol] 6.8 10*3/uL 3.8-11.6 [facility] Leukocytes [#/volume] in Blo od by Automated countOrdered By: Ming Childress on 04-02-2023 WBC (Bld) [#/Vol] 6.8 10*3/uL Normal 3.8-11.6 [facility] Comment on above: Performed By: #### U HCG, ADDONUAPLUS #### [facility] [address] [place] [address] Lymphocytes Auto (Bld) [#/Vo l]Ordered By: Ming Childress on 04-02-2023 Lymphocytes (Bld) [#/Vol] N/A [facility] Lymphocytes/100 WBC Auto (Bl d)Ordered By: Ming Childress on 04-02-2023 Lymphocytes/100 WBC (Bld) N/A [facility] Lymphocytes/100 leukocytes i n Blood by Manual countOrdered By: Ming Childress on 04-02-2023 Lymphocytes/100 WBC (Bld) 43 % High 18-42 [facility] Comment on above: Performed By: #### U HCG, ADDONUAPLUS #### [facility] [address] [place] [address] MCH [Entitic mass] by Automa flo countOrdered By: Ming Childress on 04-02-2023 MCH (RBC) [Entitic mass] 24.5 pg Low 24.7-34.3 [facility] Comment on above: Performed By: #### U HCG, ADDONUAPLUS #### [facility] [address] [place] [address] MCHC Auto (RBC) [Mass/Vol]Or dered By: Ming Childress on 04-02-2023 MCHC (RBC) [Mass/Vol] 31.8 g/dL 32.0-35.0 [facility] MCV [Entitic volume] by Auto mated countOrdered By: Ming Childress on 04-02-2023 MCV (RBC) [Entitic vol] 77.3 fL Low 80-100 [facility] Comment on above: Performed By: #### U HCG, ADDONUAPLUS #### [facility] [address] [place] [address] Manual blood segmented neutr ophils/100 leukocytesOrdered By: Ming Childress on 04-02-2023 Segmented neutrophils/100 WBC (Bld) 47 % Low 50-70 [facility] Comment on above: Performed By: #### U HCG, ADDONUAPLUS #### [facility] [address] [place] [address] Monocyte distribution width [Entitic volume] in Blood by AutomatedOrdered By: Ming Childress on 04-02-2023 Monocyte distribution width Auto (Bld) [Entitic vol] 18.83 % 0.00-20.00 [facility] Monocytes Auto (Bld) [#/Vol] Ordered By: Ming Childress on 04-02-2023 Monocytes (Bld) [#/Vol] N/A F [facility] Monocytes/100 WBC Auto (Bld) Ordered By: Ming Childress on 04-02-2023 Monocytes/100 WBC (Bld) N/A F [facility] Monocytes/100 leukocytes in Blood by Manual countOrdered By: Ming Childress on 04-02-2023 Monocytes/100 WBC (Bld) 5 % Normal 2-11 [facility] Comment on above: Performed By: #### U HCG, ADDONUAPLUS #### [facility] [address] [place] [address] Neutrophils Auto (Bld) [#/Vo l]Ordered By: Ming Childress on 04-02-2023 Neutrophils (Bld) [#/Vol] N/A [facility] Neutrophils/100 WBC Auto (Bl d)Ordered By: Ming Childress on 04-02-2023 Neutrophils/100 WBC (Bld) N/A [facility] Nitrite Test strip Ql (U)Ord ered By: Ming Childress on 04-02-2023 Nitrite Ql (U) Negative Negative [facility] No Panel InformationOrdered By: Ming Childress on 04-02-2023 Estimated GFR (CKD-EPI) > 60.0 mL/Min [facility] Creatinine Clearance (Chem 97.72 [facility] Nucleated RBC/100 WBC Manual cnt (Bld) [Ratio]Ordered By: Ming Childress on 04-02-2023 Nucleated RBC/100 WBC (Bld) [Ratio] 3 /100{WBC} 0-0 [facility] Nucleated erythrocytes [Pres ence] in Blood by Automated countOrdered By: Ming Childress on 04-02-2023 Nucleated RBC Auto Ql (Bld) N/A [facility] Ovalocyte detectionOrdered B y: Ming Childress on 04-02-2023 Ovalocytes LM Ql (Bld) Slight [facility] Platelet adequacy [Presence] in Blood by Light microscopyOrdered By: Ming Childress on 04-02-2023 Platelets LM Ql (Bld) Increased Normal [facility] Platelet mean volume [Entiti c volume] in Blood by Automated countOrdered By: Ming Childress on 04-02-2023 Platelet mean volume (Bld) [Entitic vol] 8.1 fL Normal 6.3-10.7 [facility] Comment on above: Result Comment: PERF ORMED BY: [place] [address] PATHOLOGIST [employer] FARNAZ ZULETA M.D. Performed By: #### U HCG, ADDONUAPLUS #### [address] Platelet morphology finding [Identifier] in BloodOrdered By: Ming Childress on 04-02-2023 Platelet morphology finding Nom (Bld) Normal Normal [facility] Platelets [#/volume] in Bloo d by Automated countOrdered By: Ming Childress on 04-02-2023 Platelets (Bld) [#/Vol] 492 10*3/uL High 150-450 [facility] Comment on above: Performed By: #### U HCG, ADDONUAPLUS #### [address] Poikilocytosis [Presence] in Blood by Light microscopyOrdered By: Ming Childress on 04-02-2023 Poikilocytosis LM Ql (Bld) Slight [facility] Polychromasia [Presence] in Blood by Light microscopyOrdered By: Ming Childress on 04-02-2023 Polychromasia LM Ql (Bld) Moderate [facility] Potassium [Moles/volume] in Serum or PlasmaOrdered By: Ming Childress on 04-02-2023 Potassium [Moles/Vol] 3.7 mmol/L Normal 3.5-5.1 [facility] Comment on above: Performed By: #### U HCG, ADDONUAPLUS #### [address] Protein Auto test strip (U) [Mass/Vol]Ordered By: Ming Childress on 04-02-2023 Protein (U) [Mass/Vol] Negative Negative [facility] RBC morphologyOrdered By: Carmen ttvicky Childress on 04-02-2023 RBC morphology finding Nom (Bld) N/A [facility] Serum or plasma anion gap de terminationOrdered By: Ming Childress on 04-02-2023 Anion gap [Moles/Vol] 14.2 mmol/L Normal 6.0-15.0 [facility] Comment on above: Performed By: #### U HCG, ADDONUAPLUS #### [address] Smudge cell detectionOrdered By: Ming Childress on 04-02-2023 Smudge cells LM Ql (Bld) Slight [facility] Sodium [Moles/volume] in Ser um or PlasmaOrdered By: Ming Childress on 04-02-2023 Sodium [Moles/Vol] 137 mmol/L Normal 136-145 [facility] Comment on above: Performed By: #### U HCG, ADDONUAPLUS #### [address] Specific gravity Auto test s trip (U) [Rel density]Ordered By: Ming Chilrdess on 04-02-2023 Specific gravity (U) [Rel density] 1.018 1.001-1.030 [facility] Squamous epithelial cells de tection in urine sediment by light microscopyOrdered By: Ming Childress on 04-02-2023 Epithelial cells.squamous LM Ql (Urine sed) 3-4 [HPF] 0-2 [facility] Toxic leukocyte vacuolation detectionOrdered By: Ming Childress on 04-02-2023 Leukocyte toxic vacuoles LM Ql (Bld) Slight [facility] Urea nitrogen [Mass/volume] in Serum or PlasmaOrdered By: Ming Childress on 04-02-2023 Urea nitrogen [Mass/Vol] 9 mg/dL Normal 7-25 [facility] Comment on above: Performed By: #### U HCG, ADDONUAPLUS #### [facility] [address] Urine bacteria detection by automated methodOrdered By: Ming Childress on 04-02-2023 Bacteria Auto Ql (U) None seen None Seen [facility] Urine clarity by refractomet ry automatedOrdered By: Ming Childress on 04-02-2023 Clarity Refractometry automated (U) Clear Clear [facility] Urine glucose measurement by automated test strip (mass/volume)Ordered By: Ming Childress on 04-02-2023 Glucose Auto test strip (U) [Mass/Vol] Normal mg/dL Normal [facility] Urine hemoglobin detection b y automated test stripOrdered By: Ming Childress on 04-02-2023 Hemoglobin Auto test strip Ql (U) 3+ Negative [facility] Urine leukocyte esterase det ection by automated test stripOrdered By: Ming Childress on 04-02-2023 Leukocyte esterase Auto test strip Ql (U) 1+ Negative [facility] Urine pH measurement by auto mated test stripOrdered By: Ming Childress on 04-02-2023 pH (U) 6.0 [pH] Normal 5.0-9.0 [facility] Comment on above: Order Comment: Name Collection Type:: Clean-Voided Midstream Performed By: #### U HCG, ADDONUAPLUS #### [facility] [address] Urobilinogen Auto test strip (U) [Mass/Vol]Ordered By: Ming Childress on 04-02-2023 Urobilinogen (U) [Mass/Vol] Normal mg/dL Normal [facility] Alanine aminotransferase [En zymatic activity/volume] in Serum or PlasmaOrdered By: Ming Childress on 03-29-2023 ALT [Catalytic activity/Vol] 14 U/L Normal 7-52 [facility] Comment on above: Performed By: #### B MP, LIPASE, HEPATIC #### [address] Albumin [Mass/volume] in Ser um or Plasma by Bromocresol green (BCG) dye binding methoOrdered By: Ming Childress on 03-29-2023 Albumin BCG dye [Mass/Vol] 4.0 g/dL 3.5-5.7 [facility] Alkaline phosphatase [Enzyma tic activity/volume] in Serum or PlasmaOrdered By: Ming Childress on 03-29-2023 ALP [Catalytic activity/Vol] 61 U/L Normal 34-104 [facility] Comment on above: Performed By: #### B MP, LIPASE, HEPATIC #### [address] Aspartate aminotransferase [ Enzymatic activity/volume] in Serum or PlasmaOrdered By: Ming Childress on 03-29-2023 AST [Catalytic activity/Vol] 19 U/L Normal 13-39 [facility] Comment on above: Performed By: #### B MP, LIPASE, HEPATIC #### [facility] [address] [place] [address] [place] Automated basophil %Ordered By: Ming Childress on 03-29-2023 Basophils/100 WBC (Bld) 1.3 % Normal . [facility] Comment on above: Performed By: #### U HCG, ADDONUAPLUS #### [place] [address] [place] Automated basophil countOrde red By: Ming Childress on 03-29-2023 Basophils (Bld) [#/Vol] 0.1 10*3/uL Normal 0.0-0.2 [facility] Comment on above: Result Comment: PERF ORMED BY: [place] [address] PATHOLOGIST [employer] FARNAZ ZULETA M.D. Performed By: #### U HCG, ADDONUAPLUS #### [address] Automated blood monocyte cou ntOrdered By: Mingsil Childress on 03-29-2023 Monocytes (Bld) [#/Vol] 0.6 10*3/uL Normal 0.0-0.8 [facility] Comment on above: Performed By: #### U HCG, ADDONUAPLUS #### [address] Automated eosinophil %Ordere d By: Ming Childress on 03-29-2023 Eosinophils/100 WBC (Bld) 1.8 % Normal . [facility] Comment on above: Performed By: #### U HCG, ADDONUAPLUS #### [address] Automated eosinophil countOr dered By: Mingsil Childress on 03-29-2023 Eosinophils (Bld) [#/Vol] 0.1 10*3/uL Normal 0.0-0.45 [facility] Comment on above: Performed By: #### U HCG, ADDONUAPLUS #### [address] Automated monocyte %Ordered By: Ming Childress on 03-29-2023 Monocytes/100 WBC (Bld) 7.3 % Normal . [facility] Comment on above: Performed By: #### U HCG, ADDONUAPLUS #### [address] Automated neutrophil %Ordere d By: Ming Childress on 03-29-2023 Neutrophils/100 WBC (Bld) 46.8 % Normal . [facility] Comment on above: Performed By: #### U HCG, ADDONUAPLUS #### [facility] [address] Automated urine color determ inationOrdered By: Ming Childress on 03-29-2023 Color (U) Yellow Normal Yellow [facility] Comment on above: Order Comment: Name Collection Type:: Clean-Voided Midstream Performed By: #### H CGQNT #### [address] Basic Metabolic Panelon 03-13 Creatinine Clr Calc Pharmacy 134.47 Normal [facility] Comment on above: Performed By: #### B MP, LIPASE, HEPATIC #### [address] GFR/1.73 sq M.predicted MDRD (S/P/Bld) [Vol rate/Area] mL/min/{1.73_m2} Normal [facility] Comment on above: Performed By: #### B MP, LIPASE, HEPATIC #### [address] Bilirubin Test strip Ql (U)O rdered By: Ming Childress on 03-29-2023 Bilirubin Ql (U) Negative Negative [facility] Bilirubin.direct [Mass/volum e] in Serum or PlasmaOrdered By: Ming Childress on 03-29-2023 Bilirubin.direct [Mass/Vol] 0.10 mg/dL 0.03-0.18 [facility] Bilirubin.total [Mass/volume ] in Serum or PlasmaOrdered By: Ming Childress on 03-29-2023 Bilirubin [Mass/Vol] 0.3 mg/dL Normal 0.3-1.0 [facility] Comment on above: Performed By: #### B MP, LIPASE, HEPATIC #### [address] abdomen pelvis w conon CT abdomen pelvis w con [facility] [place] [address] [place] [address] CT Scan Report Signed Patient: Antonia Noyola MR#: [id number] : 1985 Acct:[id number] Age/Sex: 38 / F ADM Date: 03/29/23 Loc: Room: [address] [place] [address] Type: ADM IN Attending Dr: Christi Aquino [...] Alesha Tejada M.D.03/29/2023 7:14 AM Dictation Location: [place] [address] Transcribed By: [facility] 03/29/23713 Dictated By: Alesha Tejada MD 03/29/2310 Signed By: 03/29/23713 Normal [facility] Calcium [Mass/volume] in Ser um or PlasmaOrdered By: Ming Childress on 03-29-2023 Calcium [Mass/Vol] 8.9 mg/dL Normal 8.6-10.3 [facility] Comment on above: Performed By: #### B MP, LIPASE, HEPATIC #### [address] Carbon dioxide, total [Moles /volume] in Serum or PlasmaOrdered By: Ming Childress on 03-29-2023 CO2 [Moles/Vol] 22.2 mmol/L Normal 21.0-31.0 [facility] Comment on above: Performed By: #### B MP, LIPASE, HEPATIC #### [address] Chloride [Moles/volume] in S binu or PlasmaOrdered By: Ming Childress on 03-29-2023 Chloride [Moles/Vol] 107 mmol/L Normal 98-107 [facility] Comment on above: Performed By: #### B MP, LIPASE, HEPATIC #### [address] Complete Blood Count Auto Di ffon 03-29-2023 Mean Corpuscular HGB Conc 32.0 g/dL Normal 32.0-35.0 [facility] Comment on above: Performed By: #### U HCG, ADDONUAPLUS #### [address] NRBC% 0.1 /100{WBC} Normal 0-0.5 [facility] Comment on above: Performed By: #### U HCG, ADDONUAPLUS #### [address] Creatinine [Mass/volume] in Serum or PlasmaOrdered By: Ming Childress on 03-29-2023 Creatinine [Mass/Vol] 0.63 mg/dL Normal 0.60-1.20 [facility] Comment on above: Performed By: #### B MP, LIPASE, HEPATIC #### [place] [address] [place] Erythrocyte distribution wid th [Ratio] by Automated countOrdered By: Ming Arangoarthy on 03-29-2023 Erythrocyte distribution width (RBC) [Ratio] 15.2 % Normal 11.9-15.3 [facility] Comment on above: Performed By: #### U HCG, ADDONUAPLUS #### [facility] [address] Erythrocytes [#/volume] in B lood by Automated countOrdered By: Ming Monroe on 03-29-2023 RBC (Bld) [#/Vol] 4.34 10*6/uL Normal 3.60-5.[address] [facility] Comment on above: Performed By: #### U HCG, ADDONUAPLUS #### [facility] [address] [place] [address] Glucose [Mass/volume] in Ser um or PlasmaOrdered By: Ming Childress on 03-29-2023 Glucose [Mass/Vol] 90 mg/dL Normal 70-100 [facility] Comment on above: ADA recommended refe rence rangeRandom Glucose Reference Range is dependent on time and content of last meal. Glucose of more than 200 mg/dL in a nonstressed, ambulatory subject supports the diagnosis of Diabetes Mellitus. Result Comment: Elsie om Glucose Reference Range is dependent on time and content of last meal. Glucose of more than 200 mg/dL in a nonstressed, ambulatory subject supports the diagnosis of Diabetes Mellitus. ADA recommended reference range Performed By: #### B MP, LIPASE, HEPATIC #### [facility] [address] [place] [address] HCG ( test) IA.rapi d Ql (U)Ordered By: Ming Childress on 03-29-2023 HCG ( test) Ql (U) Negative [facility] HCG,Urineon 03-29-2023 Beta HCG ( test) Ql (U) Negative Normal [facility] Comment on above: Order Comment: Name Collection Type:: Clean-Voided Midstream Result Comment: PERF ORMED BY: [place] [address] PATHOLOGIST [employer] JIANLAN SUN M.D. Performed By: #### H CGQNT #### [address] Hematocrit [Volume Fraction] of Blood by Automated countOrdered By: Ming Childress on 03-29-2023 Hematocrit (Bld) [Volume fraction] 32.6 % Low 34.0-46.4 [facility] Comment on above: Performed By: #### U HCG, ADDONUAPLUS #### [address] Hemoglobin [Mass/volume] in BloodOrdered By: Ming Childress on 03-29-2023 Hemoglobin (Bld) [Mass/Vol] 10.4 g/dL Low 11.8-15.4 [facility] Comment on above: Performed By: #### U HCG, ADDONUAPLUS #### [address] Hepatic Panelon 03-29-2023 Albumin [Mass/Vol] 4.0 g/dL Normal 3.5-5.7 [facility] Comment on above: Performed By: #### B MP, LIPASE, HEPATIC #### [address] Bilirubin,Indirect 0.2 mg/dL Normal [facility] Comment on above: Performed By: #### B MP, LIPASE, HEPATIC #### [address] Bilirubin.indirect [Mass/Vol] 0.10 mg/dL Normal 0.03-0.18 [facility] Comment on above: Performed By: #### B MP, LIPASE, HEPATIC #### [address] Ketones Auto test strip (U) [Mass/Vol]Ordered By: Ming Childress on 03-29-2023 Ketones (U) [Mass/Vol] Negative Negative [facility] Lactate [Moles/volume] in Se rum or PlasmaOrdered By: Megan Muniz on 03-29-2023 Lactate [Moles/Vol] 0.8 mmol/L Normal 0.5-2.[address] [facility] Comment on above: Result Comment: PERF ORMED BY: [place] [address] PATHOLOGIST [employer] FARNAZ ZULETA M.D. Performed By: #### H CGQNT #### [place] [address] [place] Leukocytes [#/volume] correc flo for nucleated erythrocytes in Blood by Automated counOrdered By: Ming Childress on 03-29-2023 WBC corrected for nucl RBC Auto (Bld) [#/Vol] 7.5 10*3/uL 3.8-11.6 [facility] Leukocytes [#/volume] in Blo od by Automated countOrdered By: Ming Childress on 03-29-2023 WBC (Bld) [#/Vol] 7.5 10*3/uL Normal 3.8-11.6 [facility] Comment on above: Performed By: #### U HCG, ADDONUAPLUS #### [place] [address] [place] Lipase [Enzymatic activity/v olume] in Serum or PlasmaOrdered By: Ming Childress on 03-29-2023 Lipase [Catalytic activity/Vol] 30.0 U/L Normal 11.0-82.0 [facility] Comment on above: Result Comment: PERF ORMED BY: [place] [address] PATHOLOGIST [employer] FARNAZ ZULETA M.D. Performed By: #### B MP, LIPASE, HEPATIC #### [place] [address] [place] Lymphocytes [#/volume] in Bl ood by Automated countOrdered By: Ming Childress on 03-29-2023 Lymphocytes (Bld) [#/Vol] 3.2 10*3/uL Normal 1.00-4.8 [facility] Comment on above: Performed By: #### U HCG, ADDONUAPLUS #### [place] [id number] [place] Lymphocytes/100 leukocytes i n Blood by Automated countOrdered By: Ming Childress on 03-29-2023 Lymphocytes/100 WBC (Bld) 42.8 % Normal . [facility] Comment on above: Performed By: #### U HCG, ADDONUAPLUS #### [facility] [address] [place] [address] MCH [Entitic mass] by Automa flo countOrdered By: Ming Childress on 03-29-2023 MCH (RBC) [Entitic mass] 24.1 pg Low 24.7-34.3 [facility] Comment on above: Performed By: #### U HCG, ADDONUAPLUS #### [facility] [address] [place] [address] MCHC Auto (RBC) [Mass/Vol]Or dered By: Ming Childress on 03-29-2023 MCHC (RBC) [Mass/Vol] 32.0 g/dL 32.0-35.0 [facility] MCV [Entitic volume] by Auto mated countOrdered By: Ming Childress on 03-29-2023 MCV (RBC) [Entitic vol] 75.2 fL Low 80-100 F [facility] Comment on above: Performed By: #### U HCG, ADDONUAPLUS #### [facility] [address] [place] [address] Neutrophils [#/volume] in Bl ood by Automated countOrdered By: Ming Childress on 03-29-2023 Neutrophils (Bld) [#/Vol] 3.5 10*3/uL Normal 1.8-7.7 [facility] Comment on above: Performed By: #### U HCG, ADDONUAPLUS #### [facility] [address] [place] [address] Nitrite Test strip Ql (U)Ord ered By: Ming Childress on 03-29-2023 Nitrite Ql (U) Negative Negative [facility] No Panel InformationOrdered By: Ming Childress on 03-29-2023 Estimated GFR (CKD-EPI) > 60.0 mL/Min [facility] Creatinine Clearance (Chem 134.47 [facility] Nucleated erythrocytes [Pres ence] in Blood by Automated countOrdered By: Ming Childress on 03-29-2023 Nucleated RBC Auto Ql (Bld) 0.1 /100{WBC} 0-0.5 [facility] Platelet mean volume [Entiti c volume] in Blood by Automated countOrdered By: Ming Childress on 03-29-2023 Platelet mean volume (Bld) [Entitic vol] 8.0 fL Normal 6.3-10.7 [facility] Comment on above: Performed By: #### U HCG, ADDONUAPLUS #### [facility] [address] [place] [address] Platelets [#/volume] in Bloo d by Automated countOrdered By: Ming Childress on 03-29-2023 Platelets (Bld) [#/Vol] 396 10*3/uL Normal 150-450 [facility] Comment on above: Performed By: #### U HCG, ADDONUAPLUS #### [facility] [address] [place] [address] Potassium [Moles/volume] in Serum or PlasmaOrdered By: Ming Childress on 03-29-2023 Potassium [Moles/Vol] 3.6 mmol/L Normal 3.5-5.1 [facility] Comment on above: Performed By: #### B MP, LIPASE, HEPATIC #### [facility] [address] [place] [address] Protein Auto test strip (U) [Mass/Vol]Ordered By: Ming Childress on 03-29-2023 Protein (U) [Mass/Vol] Negative Negative [facility] Protein [Mass/volume] in Ser um or PlasmaOrdered By: Ming Childress on 03-29-2023 Protein [Mass/Vol] 6.8 g/dL Normal 6.4-8.9 [facility] Comment on above: Performed By: #### B MP, LIPASE, HEPATIC #### [facility] [address] [place] [address] Serum globulin measurement b y calculation (mass/volume)Ordered By: Ming Childress on 03-29-2023 Globulin (S) [Mass/Vol] 2.8 g/dL Normal [facility] Comment on above: Performed By: #### B MP, LIPASE, HEPATIC #### [address] Serum or plasma albumin/glob ulin mass ratioOrdered By: Ming Childress on 03-29-2023 Albumin/Globulin [Mass ratio] 1.4 {ratio} Normal [facility] Comment on above: Performed By: #### B MP, LIPASE, HEPATIC #### [address] Serum or plasma anion gap de terminationOrdered By: Ming Childress on 03-29-2023 Anion gap [Moles/Vol] 12.4 mmol/L Normal 6.0-15.0 [facility] Comment on above: Performed By: #### B MP, LIPASE, HEPATIC #### [address] Serum or plasma non-glucuron idated bilirubin measurement (mass/volume)Ordered By: Ming Childress on 03-29-2023 Bilirubin.indirect [Mass/Vol] 0.2 mg/dL [facility] Sodium [Moles/volume] in Ser um or PlasmaOrdered By: Ming Childress on 03-29-2023 Sodium [Moles/Vol] 138 mmol/L Normal 136-145 [facility] Comment on above: Performed By: #### B MP, LIPASE, HEPATIC #### [address] Specific gravity Auto test s trip (U) [Rel density]Ordered By: Ming Childress on 03-29-2023 Specific gravity (U) [Rel density] 1.003 1.001-1.030 [facility] US transvaginalon 03-29-2023 US transvaginal [facility] [place] [address] [place] [address] Ultrasound Report Signed Patient: Antnoia Noyola MR#: [id number] : 1985 Acct:[id number] Age/Sex: 38 / F ADM Date: 03/29/23 Loc: 3T Room: [address] [place] [address] Type: ADM IN Attending Dr: Christi Aquino MD Ordering Provider: Ming Childress DO Date of Service: 03/29/23 US/US transvaginal: r/o L ovarian torsion ([id number]) US/US pelvic complete: PAIN Copies to: DO [...] Davi Figueroa M.D.03/29/2023 8:20 AM Dictation Location: [place] [address] Tech: Brooke Naveen Transcribed By: AMBER 03/29/23819 Dictated By: Davi Figueroa DO 03/29/23815 Signed By: 03/29/23819 Normal [facility] Urea nitrogen [Mass/volume] in Serum or PlasmaOrdered By: Ming Childress on 03-29-2023 Urea nitrogen [Mass/Vol] 6 mg/dL Low 7-25 [facility] Comment on above: Performed By: #### B MP, LIPASE, HEPATIC #### [facility] [address] [place] [address] [place] Urinalysison 03-29-2023 Appearance (U) Clear Normal Clear [facility] Comment on above: Order Comment: Name Collection Type:: Clean-Voided Midstream Performed By: #### H CGQNT #### [facility] [address] [place] [id number] [place] Bilirubin,Urine Negative Normal Negative [facility] Comment on above: Order Comment: Name Collection Type:: Clean-Voided Midstream Performed By: #### H CGQNT #### [facility] [address] [place] [address] [place] Glucose Ql (U) Normal Normal Normal [facility] Comment on above: Order Comment: Name Collection Type:: Clean-Voided Midstream Performed By: #### H CGQNT #### [address] Ketones Ql (U) Negative Normal Negative [facility] Comment on above: Order Comment: Name Collection Type:: Clean-Voided Midstream Performed By: #### H CGQNT #### [address] Leukocyte esterase Test strip Ql (U) Negative Normal Negative [facility] Comment on above: Order Comment: Name Collection Type:: Clean-Voided Midstream Performed By: #### H CGQNT #### [place] [address] [place] Nitrite,Urine Negative Normal Negative [facility] Comment on above: Order Comment: Name Collection Type:: Clean-Voided Midstream Performed By: #### H CGQNT #### [place] [address] [place] Occult Blood,Urine Negative Normal Negative [facility] Comment on above: Order Comment: Name Collection Type:: Clean-Voided Midstream Performed By: #### H CGQNT #### [place] [address] [place] Protein,Urine Negative Normal Negative [facility] Comment on above: Order Comment: Name Collection Type:: Clean-Voided Midstream Performed By: #### H CGQNT #### [place] [id number] [place] Specificy [place],Urine 1.003 Normal 1.001-1.030 [facility] Comment on above: Order Comment: Name Collection Type:: Clean-Voided Midstream Performed By: #### H CGQNT #### [place] [address] [place] Urobilinogen,Urine Normal Normal Normal [facility] Comment on above: Order Comment: Name Collection Type:: Clean-Voided Midstream Performed By: #### H CGQNT #### [facility] [address] [place] [address] Urine clarity by refractomet ry automatedOrdered By: Ming Childress on 03-29-2023 Clarity Refractometry automated (U) Clear Clear [facility] Urine glucose measurement by automated test strip (mass/volume)Ordered By: Ming Childress on 03-29-2023 Glucose Auto test strip (U) [Mass/Vol] Normal mg/dL Normal [facility] Urine hemoglobin detection b y automated test stripOrdered By: Ming Childress on 03-29-2023 Hemoglobin Auto test strip Ql (U) Negative Negative [facility] Urine leukocyte esterase det ection by automated test stripOrdered By: Ming Childress on 03-29-2023 Leukocyte esterase Auto test strip Ql (U) Negative Negative [facility] Urine pH measurement by auto mated test stripOrdered By: Ming Childress on 03-29-2023 pH (U) 7.5 [pH] Normal 5.0-9.0 [facility] Comment on above: Order Comment: Name Collection Type:: Clean-Voided Midstream Performed By: #### H CGQNT #### [address] Urobilinogen Auto test strip (U) [Mass/Vol]Ordered By: Ming Childress on 03-29-2023 Urobilinogen (U) [Mass/Vol] Normal mg/dL Normal [facility] Automated urine color determ inationOrdered By: Elier Jackson on 02-06-2023 Color (U) Yellow Normal Yellow [facility] Comment on above: Order Comment: Name Collection Type:: Clean-Voided Midstream Performed By: #### U A, UHCG #### [address] Bilirubin Test strip Ql (U)O rdered By: Elier Jackson on 02-06-2023 Bilirubin Ql (U) Negative Negative [facility] CT abdomen pelvis w conon CT abdomen pelvis w con [facility] [place] [address] [place] [address] CT Scan Report Signed Patient: Antonia Noyola MR#: [id number] : 1985 Acct:[id number] Age/Sex: 38 / F ADM Date: 02/05/23 Loc: ER Room: Type: [facility] ER Attending Dr: Copies to: Elier [...] Betancur Jr., D.O.02/06/2023 11:23 AM Dictation Location: [place] [address] Transcribed By: [facility] 02/06/23 1123 Dictated By: Dennis Betancur Jr, DO 02/06/23 1109 Signed By: 02/06/23 1123 Normal [facility] HCG ( test) IA.rapi d Ql (U)Ordered By: Elier Jackson on 02-06-2023 HCG ( test) Ql (U) Negative [facility] HCG,Urineon 02-06-2023 Beta HCG ( test) Ql (U) Negative Normal [facility] Comment on above: Order Comment: Name Collection Type:: Clean-Voided Midstream Result Comment: PERF ORMED BY: [place] [address] PATHOLOGIST [employer] FARNAZ ZULETA M.D. Performed By: #### U A, [facility] #### [address] Ketones Auto test strip (U) [Mass/Vol]Ordered By: Elier Jackson on 02-06-2023 Ketones (U) [Mass/Vol] Negative Negative [facility] Nitrite Test strip Ql (U)Ord ered By: Elier Jackson on 02-06-2023 Nitrite Ql (U) Negative Negative [facility] Protein Auto test strip (U) [Mass/Vol]Ordered By: Elier Jackson on 02-06-2023 Protein (U) [Mass/Vol] Negative Negative [facility] Specific gravity Auto test s trip (U) [Rel density]Ordered By: Elier Jackson on 02-06-2023 Specific gravity (U) [Rel density] 1.007 1.001-1.030 [facility] US pelvic completeon 023 US pelvic complete [facility] [place] [address] [place] [address] Ultrasound Report Signed Patient: Antonia Noyola MR#: [id number] : 1985 Acct:[id number] Age/Sex: 38 / F ADM Date: 02/05/23 Loc: ER Room: Type: [facility] ER Attending Dr: Ordering Provider: Elier Jackson DO Date of Service: 02/06/23 US/US pelvic complete: adnexa pain ([id number]) US/US transvaginal: . Copies to: Elier Jackson [...] Betancur Jr., D.O.02/06/2023 11:25 AM Dictation Location: [place] [address] Tech: Jada Webb Transcribed By: AMBER 02/06/23 112 Dictated By: Dennis Betancur Jr, DO 02/06/231122 Signed By: 02/06/23 112 Normal [facility] Urinalysison 02-06-2023 Appearance (U) Clear Normal Clear [facility] Comment on above: Order Comment: Name Collection Type:: Clean-Voided Midstream Performed By: #### U A, UHCG #### [facility] [address] [place] [id number] [place] Bilirubin,Urine Negative Normal Negative [facility] Comment on above: Order Comment: Name Collection Type:: Clean-Voided Midstream Performed By: #### U A, UHCG #### [facility] [address] [place] [address] [place] Glucose Ql (U) Normal Normal Normal [facility] Comment on above: Order Comment: Name Collection Type:: Clean-Voided Midstream Performed By: #### U A, UHCG #### [facility] [address] [place] [address] [place] Ketones Ql (U) Negative Normal Negative [facility] Comment on above: Order Comment: Name Collection Type:: Clean-Voided Midstream Performed By: #### U A, UHCG #### [facility] [address] [place] [id number] [place] Leukocyte esterase Test strip Ql (U) Negative Normal Negative [facility] Comment on above: Order Comment: Name Collection Type:: Clean-Voided Midstream Performed By: #### U A, UHCG #### [facility] [address] [place] [address] [place] Nitrite,Urine Negative Normal Negative [facility] Comment on above: Order Comment: Name Collection Type:: Clean-Voided Midstream Performed By: #### U A, UHCG #### [place] [address] [place] Occult Blood,Urine Negative Normal Negative [facility] Comment on above: Order Comment: Name Collection Type:: Clean-Voided Midstream Performed By: #### U A, UHCG #### [place] [address] [place] Protein,Urine Negative Normal Negative [facility] Comment on above: Order Comment: Name Collection Type:: Clean-Voided Midstream Performed By: #### U A, UHCG #### [place] [address] [place] Specificy [place],Urine 1.007 Normal 1.001-1.030 [facility] Comment on above: Order Comment: Name Collection Type:: Clean-Voided Midstream Performed By: #### U A, UHCG #### [place] [address] [place] Urobilinogen,Urine Normal Normal Normal [facility] Comment on above: Order Comment: Name Collection Type:: Clean-Voided Midstream Performed By: #### U A, UHCG #### [place] [address] [place] Urine clarity by refractomet ry automatedOrdered By: Elier Jackson on 02-06-2023 Clarity Refractometry automated (U) Clear Clear [facility] Urine glucose measurement by automated test strip (mass/volume)Ordered By: Elier Jackson on 02-06-2023 Glucose Auto test strip (U) [Mass/Vol] Normal mg/dL Normal [facility] Urine hemoglobin detection b y automated test stripOrdered By: Elier Jackson on 02-06-2023 Hemoglobin Auto test strip Ql (U) Negative Negative [facility] Urine leukocyte esterase det ection by automated test stripOrdered By: Elier Jackson on 02-06-2023 Leukocyte esterase Auto test strip Ql (U) Negative Negative [facility] Urine pH measurement by auto mated test stripOrdered By: Elier Jackson on 02-06-2023 pH (U) 7.0 [pH] Normal 5.0-9.0 [facility] Comment on above: Order Comment: Name Collection Type:: Clean-Voided Midstream Performed By: #### U A, CG #### [address] Urobilinogen Auto test strip (U) [Mass/Vol]Ordered By: Elier Jackson on 02-06-2023 Urobilinogen (U) [Mass/Vol] Normal mg/dL Normal [facility] Alanine aminotransferase [En zymatic activity/volume] in Serum or PlasmaOrdered By: Elier Jackson on 02-05-2023 ALT [Catalytic activity/Vol] 13 U/L Normal 7-52 [facility] Comment on above: Performed By: #### H CGQNT #### [facility] [address] [place] [address] [place] Albumin [Mass/volume] in Ser um or Plasma by Bromocresol green (BCG) dye binding methoOrdered By: Elier Jackson on 02-05-2023 Albumin BCG dye [Mass/Vol] 4.2 g/dL 3.5-5.7 [facility] Alkaline phosphatase [Enzyma tic activity/volume] in Serum or PlasmaOrdered By: Elier Jackson on 02-05-2023 ALP [Catalytic activity/Vol] 52 U/L Normal 34-104 [facility] Comment on above: Performed By: #### H CGQNT #### [facility] [address] [place] [address] [place] Aspartate aminotransferase [ Enzymatic activity/volume] in Serum or PlasmaOrdered By: Elier Jackson on 02-05-2023 AST [Catalytic activity/Vol] 12 U/L Low 13-39 [facility] Comment on above: Performed By: #### H CGQNT #### [address] Automated basophil %Ordered By: Elier Jackson on 02-05-2023 Basophils/100 WBC (Bld) 1.4 % Normal . F [facility] Comment on above: Performed By: #### H EPATIC, LIPASE, BMP, CBC #### [address] Automated basophil countOrde red By: Elier Jackson on 02-05-2023 Basophils (Bld) [#/Vol] 0.1 10*3/uL Normal 0.0-0.2 [facility] Comment on above: Result Comment: PERF ORMED BY: [place] [address] PATHOLOGIST [employer] FARNAZ ZULETA M.D. Performed By: #### H EPATIC, LIPASE, BMP, CBC #### [address] Automated blood monocyte cou ntOrdered By: Elier Jackson on 02-05-2023 Monocytes (Bld) [#/Vol] 0.7 10*3/uL Normal 0.0-0.8 [facility] Comment on above: Performed By: #### H EPATIC, LIPASE, BMP, CBC #### [address] Automated eosinophil %Ordere d By: Elier Jackson on 02-05-2023 Eosinophils/100 WBC (Bld) 1.5 % Normal . [facility] Comment on above: Performed By: #### H EPATIC, LIPASE, BMP, CBC #### [address] Automated eosinophil countOr dered By: Elier Jackson on 02-05-2023 Eosinophils (Bld) [#/Vol] 0.1 10*3/uL Normal 0.0-0.45 [facility] Comment on above: Performed By: #### H EPATIC, LIPASE, BMP, CBC #### [address] Automated monocyte %Ordered By: Elier Jackson on 02-05-2023 Monocytes/100 WBC (Bld) 8.4 % Normal . F [facility] Comment on above: Performed By: #### H EPATIC, LIPASE, BMP, CBC #### [facility] [address] Automated neutrophil %Ordere d By: Elier Jackson on 02-05-2023 Neutrophils/100 WBC (Bld) 44.4 % Normal . [facility] Comment on above: Performed By: #### H EPATIC, LIPASE, BMP, CBC #### [facility] [address] Basic Metabolic Panelon 01-12 Creatinine Clr Calc Pharmacy 115.62 Normal [facility] Comment on above: Performed By: #### H CGQNT #### [address] GFR/1.73 sq M.predicted MDRD (S/P/Bld) [Vol rate/Area] mL/min/{1.73_m2} Normal [facility] Comment on above: Performed By: #### H CGQNT #### [facility] [address] [place] [address] Bilirubin.direct [Mass/volum e] in Serum or PlasmaOrdered By: Elier Jackson on 02-05-2023 Bilirubin.direct [Mass/Vol] 0.10 mg/dL 0.03-0.18 [facility] Bilirubin.total [Mass/volume ] in Serum or PlasmaOrdered By: Elier Jackson on 02-05-2023 Bilirubin [Mass/Vol] 0.3 mg/dL Normal 0.3-1.0 [facility] Comment on above: Performed By: #### H CGQNT #### [facility] [address] [place] [address] Calcium [Mass/volume] in Ser um or PlasmaOrdered By: Elier Jackson on 02-05-2023 Calcium [Mass/Vol] 9.2 mg/dL Normal 8.6-10.3 [facility] Comment on above: Performed By: #### H CGQNT #### [address] [place] [address] [place] Carbon dioxide, total [Moles /volume] in Serum or PlasmaOrdered By: Elier Jackson on 02-05-2023 CO2 [Moles/Vol] 21.5 mmol/L Normal 21.0-31.0 [facility] Comment on above: Performed By: #### H CGQNT #### [facility] [address] [place] [address] [place] Chloride [Moles/volume] in S binu or PlasmaOrdered By: Elier Jackson on 02-05-2023 Chloride [Moles/Vol] 107 mmol/L Normal 98-107 [facility] Comment on above: Performed By: #### H CGQNT #### [facility] [address] Choriogonadotropin.beta subu nit [Units/volume] in Serum or PlasmaOrdered By: Elier Jackson on 02-05-2023 HCG.beta subunit Qn m[IU]/mL [facility] Comment on above: Approximate Approxim ate hCG Gestational Age Range (mIU/ml) (weeks)0.2-1 5-50 1-2 50-500 2-3 100-5,000 3-4 500-10,000 4-5 1,000-50,000 5-6 10,000-100,000 6-8 15,000-200,000 8-12 10,000-100,000 HCG.beta subunit Qn Negative [facility] Complete Blood Count Auto Di ffon 02-05-2023 Mean Corpuscular HGB Conc 31.8 g/dL Low 32.0-35.0 [facility] Comment on above: Performed By: #### H EPATIC, LIPASE, BMP, CBC #### [facility] [address] [place] [address] [place] Monocytes/100 WBC (Bld) 17.33 % Normal 0.00-20.00 [facility] Comment on above: Performed By: #### H EPATIC, LIPASE, BMP, CBC #### [facility] [address] [place] [address] [place] NRBC% 0.1 /100{WBC} Normal 0-0.5 [facility] Comment on above: Performed By: #### H EPATIC, LIPASE, BMP, CBC #### [address] Creatinine [Mass/volume] in Serum or PlasmaOrdered By: Elier Jackson on 02-05-2023 Creatinine [Mass/Vol] 0.71 mg/dL Normal 0.60-1.20 [facility] Comment on above: Performed By: #### H CGQNT #### [address] Erythrocyte distribution wid th [Ratio] by Automated countOrdered By: Elier Jackson on 02-05-2023 Erythrocyte distribution width (RBC) [Ratio] 15.9 % High 11.9-15.3 [facility] Comment on above: Performed By: #### H EPATIC, LIPASE, BMP, CBC #### [place] [address] [place] Erythrocytes [#/volume] in B lood by Automated countOrdered By: Elier Jackson on 02-05-2023 RBC (Bld) [#/Vol] 4.78 10*6/uL Normal 3.60-5.[address] [facility] Comment on above: Performed By: #### H EPATIC, LIPASE, BMP, CBC #### [address] Glucose [Mass/volume] in Ser um or PlasmaOrdered By: Elier Jackson on 02-05-2023 Glucose [Mass/Vol] 99 mg/dL Normal 70-100 [facility] Comment on above: ADA recommended refe rence rangeRandom Glucose Reference Range is dependent on time and content of last meal. Glucose of more than 200 mg/dL in a nonstressed, ambulatory subject supports the diagnosis of Diabetes Mellitus. Result Comment: Elsie om Glucose Reference Range is dependent on time and content of last meal. Glucose of more than 200 mg/dL in a nonstressed, ambulatory subject supports the diagnosis of Diabetes Mellitus. ADA recommended reference range Performed By: #### H CGQNT #### [address] HCG,Qualitative Serumon 01-12 HCG,Qualitative Serum Negative Normal [facility] Comment on above: Result Comment: PERF ORMED BY: [place] [address] PATHOLOGIST [employer] FARNAZ ZULETA M.D. Performed By: #### U HCG, ADDONUAPLUS #### [address] HCG,Quantitativeon 3 HCG,Quantitative < 0.60 Normal [facility] Comment on above: Result Comment: Appr oximate Approximate hCG Gestational Age Range (mIU/ml) (weeks) 0.2-1 5-50 1-2 50-500 2-3 100-5,000 3-4 500-10,000 4-5 1,000-50,000 5-6 10,000-100,000 6-8 15,000-200,000 8-12 10,000-100,000 PERFORMED BY: [place] [address] PATHOLOGIST [employer] FARNAZ ZULETA M.D. Performed By: #### H CGQNT #### [address] Hematocrit [Volume Fraction] of Blood by Automated countOrdered By: Elier Jackson on 02-05-2023 Hematocrit (Bld) [Volume fraction] 37.3 % Normal 34.0-46.4 [facility] Comment on above: Performed By: #### H EPATIC, LIPASE, BMP, CBC #### [address] Hemoglobin [Mass/volume] in BloodOrdered By: Elier Jackson on 02-05-2023 Hemoglobin (Bld) [Mass/Vol] 11.8 g/dL Normal 11.8-15.4 [facility] Comment on above: Performed By: #### H EPATIC, LIPASE, BMP, CBC #### [address] Hepatic Panelon 02-05-2023 Albumin [Mass/Vol] 4.2 g/dL Normal 3.5-5.7 [facility] Comment on above: Performed By: #### H CGQNT #### [address] Bilirubin,Indirect 0.2 mg/dL Normal [facility] Comment on above: Performed By: #### H CGQNT #### [address] Bilirubin.indirect [Mass/Vol] 0.10 mg/dL Normal 0.03-0.18 [facility] Comment on above: Performed By: #### H CGQNT #### [address] Leukocytes [#/volume] correc flo for nucleated erythrocytes in Blood by Automated counOrdered By: Elier Jackson on 02-05-2023 WBC corrected for nucl RBC Auto (Bld) [#/Vol] 8.1 10*3/uL 3.8-11.6 [facility] Leukocytes [#/volume] in Blo od by Automated countOrdered By: Elier Jackson on 02-05-2023 WBC (Bld) [#/Vol] 8.1 10*3/uL Normal 3.8-11.6 [facility] Comment on above: Performed By: #### H EPATIC, LIPASE, BMP, CBC #### [facility] [address] [place] [address] Lipase [Enzymatic activity/v olume] in Serum or PlasmaOrdered By: Elier Jackson on 02-05-2023 Lipase [Catalytic activity/Vol] 40.0 U/L Normal 11.0-82.0 [facility] Comment on above: Result Comment: PERF ORMED BY: [place] [address] PATHOLOGIST [employer] FARNAZ ZULETA M.D. Performed By: #### H CGQNT #### [address] Lymphocytes [#/volume] in Bl ood by Automated countOrdered By: Elier Jackson on 02-05-2023 Lymphocytes (Bld) [#/Vol] 3.6 10*3/uL Normal 1.00-4.8 [facility] Comment on above: Performed By: #### H EPATIC, LIPASE, BMP, CBC #### [facility] [address] Lymphocytes/100 leukocytes i n Blood by Automated countOrdered By: Elier Jackson on 02-05-2023 Lymphocytes/100 WBC (Bld) 44.3 % Normal . [facility] Comment on above: Performed By: #### H EPATIC, LIPASE, BMP, CBC #### [facility] [address] [place] [address] MCH [Entitic mass] by Automa flo countOrdered By: Elier Jackson on 02-05-2023 MCH (RBC) [Entitic mass] 24.8 pg Normal 24.7-34.3 [facility] Comment on above: Performed By: #### H EPATIC, LIPASE, BMP, CBC #### [facility] [address] [place] [address] MCHC Auto (RBC) [Mass/Vol]Or dered By: Elier Jackson on 02-05-2023 MCHC (RBC) [Mass/Vol] 31.8 g/dL 32.0-35.0 [facility] MCV [Entitic volume] by Auto mated countOrdered By: Elier Jackson on 02-05-2023 MCV (RBC) [Entitic vol] 78.1 fL Low 80-100 F [facility] Comment on above: Performed By: #### H EPATIC, LIPASE, BMP, CBC #### [facility] [address] [place] [address] Monocyte distribution width [Entitic volume] in Blood by AutomatedOrdered By: Elier Jackson on 02-05-2023 Monocyte distribution width Auto (Bld) [Entitic vol] 17.33 % 0.00-20.00 [facility] Neutrophils [#/volume] in Bl ood by Automated countOrdered By: Elier Jackson on 02-05-2023 Neutrophils (Bld) [#/Vol] 3.6 10*3/uL Normal 1.8-7.7 [facility] Comment on above: Performed By: #### H EPATIC, LIPASE, BMP, CBC #### [facility] [address] [place] [address] No Panel InformationOrdered By: Elier Jackson on 02-05-2023 Estimated GFR (CKD-EPI) > 60.0 mL/Min [facility] Creatinine Clearance (Chem 115.62 [facility] Nucleated erythrocytes [Pres ence] in Blood by Automated countOrdered By: Elier Jackson on 02-05-2023 Nucleated RBC Auto Ql (Bld) 0.1 /100{WBC} 0-0.5 [facility] Platelet mean volume [Entiti c volume] in Blood by Automated countOrdered By: Elier Jackson on 02-05-2023 Platelet mean volume (Bld) [Entitic vol] 8.0 fL Normal 6.3-10.7 [facility] Comment on above: Performed By: #### H EPATIC, LIPASE, BMP, CBC #### [facility] [address] [place] [address] Platelets [#/volume] in Bloo d by Automated countOrdered By: Elier Jackson on 02-05-2023 Platelets (Bld) [#/Vol] 398 10*3/uL Normal 150-450 [facility] Comment on above: Performed By: #### H EPATIC, LIPASE, BMP, CBC #### [facility] [address] [place] [address] [place] Potassium [Moles/volume] in Serum or PlasmaOrdered By: Elier Jackson on 02-05-2023 Potassium [Moles/Vol] 3.4 mmol/L Low 3.5-5.1 [facility] Comment on above: Performed By: #### H CGQNT #### [address] Protein [Mass/volume] in Ser um or PlasmaOrdered By: Elier Jackson on 02-05-2023 Protein [Mass/Vol] 7.2 g/dL Normal 6.4-8.9 [facility] Comment on above: Performed By: #### H CGQNT #### [facility] [address] Serum globulin measurement b y calculation (mass/volume)Ordered By: Elier Jackson on 02-05-2023 Globulin (S) [Mass/Vol] 3.0 g/dL Normal F [facility] Comment on above: Performed By: #### H CGQNT #### [address] Serum or plasma albumin/glob ulin mass ratioOrdered By: Elier Jackson on 02-05-2023 Albumin/Globulin [Mass ratio] 1.4 {ratio} Normal [facility] Comment on above: Performed By: #### H CGQNT #### [address] Serum or plasma anion gap de terminationOrdered By: Elier Jackson on 02-05-2023 Anion gap [Moles/Vol] 11.9 mmol/L Normal 6.0-15.0 [facility] Comment on above: Performed By: #### H CGQNT #### [address] Serum or plasma non-glucuron idated bilirubin measurement (mass/volume)Ordered By: Elier Jackson on 02-05-2023 Bilirubin.indirect [Mass/Vol] 0.2 mg/dL [facility] Sodium [Moles/volume] in Ser um or PlasmaOrdered By: Elier Jackson on 02-05-2023 Sodium [Moles/Vol] 137 mmol/L Normal 136-145 [facility] Comment on above: Performed By: #### H CGQNT #### [address] Urea nitrogen [Mass/volume] in Serum or PlasmaOrdered By: Elier Jackson on 02-05-2023 Urea nitrogen [Mass/Vol] 6 mg/dL Low 7-25 [facility] Comment on above: Performed By: #### H CGQNT #### [address] GENITAL CULTUREon 08-01-2022 Genital Culture, Routine Final report Abnormal [facility] Comment on above: Result Comment: Spec imen stability note: A swab transport (ie., ESwab, Amies agar gel) received by the lab more than 24 hours after collection may result in reduced recovery of Neisseria gonorrhoeae (GC). (This is informational only and may not apply to this specimen.) Performed By: #### C XGENIT #### [facility] [address] [place] [address] Dr. Rod Ramirez Result 1 Comment Abnormal [facility] Comment on above: Result Comment: Beta [...] (CLSI) Performed By: #### C XGENIT #### [facility] [address] [place] [address] Dr. Rod Ramirez Result 2 Comment Normal [facility] Comment on above: Result Comment: Rout ine genital rashid. Light growth Performed By: #### C XGENIT #### [facility] [address] [place] [address] Dr. Rod Ramirez CBC AUTO DIFFon 07-28-2022 BASO # 0.0 103/ul Normal 0.0-0.1 [facility] Comment on above: Performed By: #### C BC #### [facility] [address] [place] [address] Dr. Rod Ramirez Basophils/100 WBC (Bld) 0.4 % Normal 0.2-2.0 [facility] Comment on above: Performed By: #### C BC #### [facility] [address] [place] [address] Dr. Rod Ramirez EO # 0.1 103/ul Normal 0.0-0.7 [facility] Comment on above: Performed By: #### C BC #### [facility] [address] [place] [address] Dr. Rod Ramirez Eosinophils/100 WBC (Bld) 1.5 % Normal 0.9-7.0 [facility] Comment on above: Performed By: #### C BC #### [facility] [address] [place] [address] Dr. Rod Ramirez Erythrocyte distribution width (RBC) [Ratio] 12.9 % Normal 11.0-15.0 [facility] Comment on above: Performed By: #### C BC #### [facility] [address] [place] [address] Dr. Rod Ramirez Hematocrit (Bld) [Volume fraction] 40.9 % Normal 36.0-48.0 [facility] Comment on above: Performed By: #### C BC #### [facility] [address] [place] [address] Dr. Rod Ramirez Hemoglobin (Bld) [Mass/Vol] 13.7 g/dL Normal 12.0-16.0 [facility] Comment on above: Performed By: #### C BC #### [facility] [address] [place] [address] Dr. Rod Ramirez IG # 0.02 10e3/ul Normal 0.00-0.03 [facility] Comment on above: Performed By: #### C BC #### [facility] [address] [place] [address] Dr. Rod Ramirez IG % 0.3 % Normal 0.0-0.5 [facility] Comment on above: Performed By: #### C BC #### [facility] [address] [place] [address] Dr. Rod Ramirez LYMPH # 1.6 103/ul Normal 1.2-3.8 [facility] Comment on above: Performed By: #### C BC #### [facility] [address] [place] [address] Dr. Rod Ramirez Lymphocytes/100 WBC (Bld) 23.6 % Normal 20.5-60.0 [facility] Comment on above: Performed By: #### C BC #### [facility] [address] [place] [address] Dr. Rod Ramirez MANUAL DIFF REQ NO Normal [facility] Comment on above: Performed By: #### C BC #### [facility] [address] [place] [address] Dr. Rod Ramirez MCH (RBC) [Entitic mass] 27.7 pg Normal 26.7-34.0 [facility] Comment on above: Performed By: #### C BC #### [facility] [address] [place] [address] Dr. Rod Ramirez MCHC (RBC) [Mass/Vol] 33.5 g/dL Normal 29.9-35.2 [facility] Comment on above: Performed By: #### C BC #### [facility] [address] [place] [address] Dr. Rod Ramirez MCV (RBC) [Entitic vol] 82.6 fL Normal 81.0-99.0 [facility] Comment on above: Performed By: #### C BC #### [facility] [address] [place] [address] Dr. Rod Ramirez MONO # 0.4 103/ul Normal 0.3-0.8 [facility] Comment on above: Performed By: #### C BC #### [facility] [address] [place] [address] Dr. Rod Ramirez Monocytes/100 WBC (Bld) 6.4 % Normal 1.7-12.0 [facility] Comment on above: Performed By: #### C BC #### [facility] [address] [place] [address] Dr. Rod Ramirez NEUT # 4.6 103/ul Normal 1.4-6.5 [facility] Comment on above: Performed By: #### C BC #### [facility] [address] [place] [address] Dr. Rod Ramirez Neutrophils/100 WBC (Bld) 67.8 % Normal 43.0-75.0 [facility] Comment on above: Performed By: #### C BC #### [facility] [address] [place] [address] Dr. Rod Ramirez Platelet mean volume (Bld) [Entitic vol] 9.4 fL Critically low 9.5-13.5 [facility] Comment on above: Performed By: #### C BC #### [facility] [address] [place] [address] Dr. Rod Ramirez PLT 439 103/ul Normal 150-450 [facility] Comment on above: Performed By: #### C BC #### [facility] [address] [place] [address] Dr. Rod Ramirez RBC 4.95 106/ul Normal 4.20-5.40 [facility] Comment on above: Performed By: #### C BC #### [facility] [address] [place] [address] Dr. Rod Ramirez WBC 6.7 103/ul Normal 4.0-11.0 [facility] Comment on above: Performed By: #### C BC #### [facility] [address] [place] [address] Dr. Rod Ramirez PREG HCG QUALon 07-28-2022 , QUAL Negative Normal NEGATIVE [facility] Comment on above: Performed By: #### P REG #### [facility] [address] [place] [address] Dr. Rod Ramirez PROF CHEM 8 (BAS METB)on Anion gap [Moles/Vol] 15.5 mmol/L Normal [facility] Comment on above: Performed By: #### B MP #### [facility] [address] [place] [address] Dr. Rod Ramirez Calcium [Mass/Vol] 9.0 mg/dL Normal 8.5-10.1 [facility] Comment on above: Performed By: #### B MP #### [facility] [address] [place] [address] Dr. Rod Ramirez Chloride [Moles/Vol] 103 mmol/L Normal 98-107 [facility] Comment on above: Performed By: #### B MP #### [facility] [address] [place] [address] Dr. Rod Ramirez CO2 [Moles/Vol] 23.9 mmol/L Normal 21.0-32.0 [facility] Comment on above: Performed By: #### B MP #### [facility] [address] [address] [address] Rod Ramirez Creatinine [Mass/Vol] 0.79 mg/dL Normal 0.55-1.02 [facility] Comment on above: Performed By: #### B MP #### [facility] [address] [address] [address] Rod Ramirez EGFR-AF [place]IZ[place] >60 Normal >=60 [facility] Comment on above: Performed By: #### B MP #### [facility] [address] [address] [address] Rod Ramirez EGFR-NON AF [place]IZ[place] >60 Normal >=60 [facility] Comment on above: Performed By: #### B MP #### [facility] [address] [address] [address] Rod Ramirez Glucose [Mass/Vol] 108 mg/dL Critically high 74-106 [facility] Comment on above: Performed By: #### B MP #### [facility] [address] [address] [address] Rod Ramirez Potassium [Moles/Vol] 3.4 mmol/L Critically low 3.5-5.1 [facility] Comment on above: Performed By: #### B MP #### [facility] [address] [address] [address] Rod Ramirez Sodium [Moles/Vol] 139 mmol/L Normal 136-145 [facility] Comment on above: Performed By: #### B MP #### [facility] [address] [address] [address] Rod Ramirez Urea nitrogen [Mass/Vol] 7.0 mg/dL Normal 7.0-18.0 [facility] Comment on above: Performed By: #### B MP #### [facility] [address] [address] [address] Rod Ramirez Urea nitrogen/Creatinine [Mass ratio] 8.9 mg/mg Normal [facility] Comment on above: Performed By: #### B MP #### [facility] [address] [address] [address] Rod Ramirez US PELVIS TRANSVAGon 023 [...] AUBREY BURKS Date: 2022-07-28 07:46 Normal [facility] WET PREPon 07-28-2022 CLUE CELLS NONE SEEN Normal NONE SEEN [facility] Comment on above: Performed By: #### W P #### [facility] [address] [place] [address] Dr. Rod Ramirez FUNGAL ELEMENTS NONE SEEN Normal NONE SEEN The [facility] Comment on above: Performed By: #### W P #### [facility] [address] [place] [address] Dr. Rod Ramirez RBC -WET PREP RARE Abnormal NONE SEEN [facility] Comment on above: Performed By: #### W P #### [facility] [address] [place] [address] Dr. Rod Ramirez TRICHOMONAS NONE SEEN Normal NONE SEEN [facility] Comment on above: Performed By: #### W P #### [facility] [address] [place] [address] Dr. Rod Ramirez WBC- WET PREP RARE Abnormal NONE SEEN [facility] Comment on above: Performed By: #### W P #### [facility] [address] [place], [place] [address] Dr. Rod Ramirez WET PREP BACTERIA NONE SEEN Normal NONE SEEN [facility] Comment on above: Performed By: #### W P #### [facility] [address] [place], [place] [address] Dr. Rod Morales 04-30-2022 CNPN Telephone (HEMASA) ANTONIA NOYOLA ([id number]) 1985 F Date Time Provider Department 04/30/22 [...] Fully Assessed Reason for Visit: Lab Orders [7018] Primary Visit Diagnosis:Iron deficiency anemia due to chronic blood loss [D50.0] Order(s):COMP METABOLIC PANEL [SQCMP] Order #: [id number] FUTURE Prescriptions as of 05/03/2022 - ALPRAZolam [...] Status:Closed by MADYSON NI on 05/03/22 Normal [facility] Anisocytosis LM Ql (Bld)Orde red By: Yevgeniy Cabrera on 04-28-2022 Anisocytosis Ql (Bld) Marked [facility] Automated erythrocytes count in urine sediment (number/area)Ordered By: Yevgeniy Cabrera on 04-28-2022 RBC Auto (Urine sed) [#/Area] None seen [HPF] 0-4 [facility] Automated leukocytes count i n urine sediment (number/area)Ordered By: Yevgeniy Cabrera on 04-28-2022 WBC Auto (Urine sed) [#/Area] 3-4 [HPF] 0-4 [facility] Basophils Auto (Bld) [#/Vol] Ordered By: Yevgeniy Cabrera on 04-28-2022 Basophils (Bld) [#/Vol] 0.1 10*3/uL 0.0-0.2 [facility] Basophils/100 WBC Auto (Bld) Ordered By: Yevgeniy Cabrera on 04-28-2022 Basophils/100 WBC (Bld) 1.0 % . F [facility] Bilirubin Test strip Ql (U)O rdered By: Yevgeniy Cabrera on 04-28-2022 Bilirubin Ql (U) Negative Negative [facility] Body fluid albumin measureme nt (mass/volume)Ordered By: Yevgeniy Cabrera on 04-28-2022 Albumin (Body fld) [Mass/Vol] 3.8 g/dL 3.2-5.5 [facility] Color Auto (U)Ordered By: Marcus Cabrera on 04-28-2022 Color (U) Yellow Yellow [facility] Creatinine and Glomerular fi ltration rate.predicted panel (S/P/Bld)Ordered By: Yevgeniy Cabrera on 04-28-2022 Creatinine [Mass/Vol] 0.62 mg/dL 0.44-1.03 [facility] Eosinophils Auto (Bld) [#/Vo l]Ordered By: Yevgeniy Cabrera on 04-28-2022 Eosinophils (Bld) [#/Vol] 0.1 10*3/uL 0.0-0.45 [facility] Eosinophils/100 WBC Auto (Bl d)Ordered By: Yevgeniy Cabrera on 04-28-2022 Eosinophils/100 WBC (Bld) 1.0 % . [facility] Erythrocyte distribution wid th Auto (RBC) [Ratio]Ordered By: Yevgeniy Cabrera on 04-28-2022 Erythrocyte distribution width (RBC) [Ratio] 27.1 % 11.9-15.3 [facility] Estimated glomerular filtrat ion rate (GFR) non- AmericanOrdered By: Yevgeniy Cabrera on 04-28-2022 GFR/1.73 sq M.predicted among non-blacks MDRD (S/P/Bld) [Vol rate/Area] > 60 mL/Min [facility] Globulin Calc (S) [Mass/Vol] Ordered By: Yevgeniy Cabrera on 04-28-2022 Globulin (S) [Mass/Vol] 3.1 g/dL F [facility] HCG ( test) IA.rapi d Ql (U)Ordered By: Yevgeniy Cabrera on 04-28-2022 HCG ( test) Ql (U) Negative [facility] Hematocrit Auto (Bld) [Volum e fraction]Ordered By: Yevgeniy Cabrera on 04-28-2022 Hematocrit (Bld) [Volume fraction] 39.4 % 34.0-46.4 [facility] Hemoglobin [Mass/volume] in BloodOrdered By: Yevgeniy Cabrera on 04-28-2022 Hemoglobin (Bld) [Mass/Vol] 12.3 g/dL 11.8-15.4 [facility] Hypochromia LM Ql (Bld)Order ed By: Yevgeniy Cabrera on 04-28-2022 Hypochromia Ql (Bld) Slight [facility] Ketones Auto test strip (U) [Mass/Vol]Ordered By: Yevgeniy Cabrera on 04-28-2022 Ketones (U) [Mass/Vol] Negative Negative Fi [facility] - Hematology and Cell countsOrdered By: Yevgeniy Cabrera on 04-28-2022 Nucleated RBC/100 WBC (Bld) [Ratio] 0.0 % 0-0.5 [facility] Laboratory - UrinalysisOrder ed By: Yevgeniy Cabrera on 04-28-2022 Hyaline casts LM Ql (Urine sed) None seen [LPF] 0-8 [facility] Leukocytes [#/volume] in Blo od by Automated countOrdered By: Yevgeniy Cabrera on 04-28-2022 WBC (Bld) [#/Vol] 7.9 10*3/uL 4.5-11.0 [facility] Lymphocytes Auto (Bld) [#/Vo l]Ordered By: Yevgeniy Cabrera on 04-28-2022 Lymphocytes (Bld) [#/Vol] 2.3 10*3/uL 1.00-4.8 [facility] Lymphocytes/100 WBC Auto (Bl d)Ordered By: Yevgeniy Cabrera on 04-28-2022 Lymphocytes/100 WBC (Bld) 28.9 % . [facility] MCH Auto (RBC) [Entitic mass ]Ordered By: Yevgeniy Cabrera on 04-28-2022 MCH (RBC) [Entitic mass] 23.3 pg 24.7-34.3 [facility] MCHC Auto (RBC) [Mass/Vol]Or dered By: Yevgeniy Cabrera on 04-28-2022 MCHC (RBC) [Mass/Vol] 31.3 g/dL 32.0-35.0 [facility] MCV Auto (RBC) [Entitic vol] Ordered By: Yevgeniy Cabrera on 04-28-2022 MCV (RBC) [Entitic vol] 74.5 fL 80-100 F [facility] Monocytes Auto (Bld) [#/Vol] Ordered By: Yevgeniy Cabrera on 04-28-2022 Monocytes (Bld) [#/Vol] 0.4 10*3/uL 0.0-0.8 [facility] Monocytes/100 WBC Auto (Bld) Ordered By: Yevgeniy Cabrera on 04-28-2022 Monocytes/100 WBC (Bld) 4.5 % . [facility] Neutrophils Auto (Bld) [#/Vo l]Ordered By: Yevgeniy Cabrera on 04-28-2022 Neutrophils (Bld) [#/Vol] 5.1 10*3/uL 1.8-7.7 [facility] Neutrophils/100 WBC Auto (Bl d)Ordered By: Yevgeniy Cabrera on 04-28-2022 Neutrophils/100 WBC (Bld) 64.6 % . [facility] Nitrite Test strip Ql (U)Ord ered By: Yevgeniy Cabrera on 04-28-2022 Nitrite Ql (U) Negative Negative [facility] No Panel InformationOrdered By: Yevgeniy Cabrera on 04-28-2022 Estimated GFR () > 60 mL/Min [facility] Comment on above: GFR estimated refere nce range: According to KDOQI guidelines, <60 ml/min/1.73m2 is sufficient to diagnose a patient with chronic kidney disease. Pharmacy Creatinine Clearance (Chem 132.36 [facility] Slides for Pathologist Review Ordered path review [facility] Ovalocyte detectionOrdered B y: Yevgeniy Cabrera on 04-28-2022 Ovalocytes LM Ql (Bld) Moderate [facility] Platelet adequacy [Presence] in Blood by Light microscopyOrdered By: Yevgeniy Cabrera on 04-28-2022 Platelets LM Ql (Bld) Normal Normal [facility] Platelet mean volume Auto (B ld) [Entitic vol]Ordered By: Yevgeniy Cabrera on 04-28-2022 Platelet mean volume (Bld) [Entitic vol] 7.4 fL 6.3-10.7 [facility] Platelet morphology finding [Identifier] in BloodOrdered By: Yevgeniy Cabrera on 04-28-2022 Platelet morphology finding Nom (Bld) Normal Normal [facility] Platelets Auto (Bld) [#/Vol] Ordered By: Yevgeniy Cabrera on 04-28-2022 Platelets (Bld) [#/Vol] 329 10*3/uL 150-450 [facility] Poikilocytosis [Presence] in Blood by Light microscopyOrdered By: Yevgeniy Cabrera on 04-28-2022 Poikilocytosis LM Ql (Bld) Moderate [facility] Polychromasia [Presence] in Blood by Light microscopyOrdered By: Yevgeniy Cabrera on 04-28-2022 Polychromasia LM Ql (Bld) Slight [facility] [facility] Protein Auto test strip (U) [Mass/Vol]Ordered By: Yevgeniy Cabrera on 04-28-2022 Protein (U) [Mass/Vol] Negative Negative Fi [facility] Protein [Mass/volume] in Ser um or PlasmaOrdered By: Yevgeniy Cabrera on 04-28-2022 Protein [Mass/Vol] 6.9 g/dL 6.1-7.9 [facility] RBC Auto (Bld) [#/Vol]Ordere d By: Yevgeniy Cabrera on 04-28-2022 RBC (Bld) [#/Vol] 5.29 10*6/uL 3.60-5.[address] [facility] RBC morphologyOrdered By: Marcus oli Rick on 04-28-2022 RBC morphology finding Nom (Bld) N/A [facility] Serum or plasma alanine syed otransferase measurement without P-5'-P (enzymatic activiOrdered By: Yevgeniy Cabrera on 04-28-2022 ALT No additional P-5'-P [Catalytic activity/Vol] 43 U/L 10-60 [facility] Serum or plasma albumin/glob ulin mass ratioOrdered By: Yevgeniy Caberra on 04-28-2022 Albumin/Globulin [Mass ratio] 1.2 {ratio} [facility] Serum or plasma alkaline zeeshan sphatase measurement (enzymatic activity/volume)Ordered By: Yevgeniy Cabrera on 04-28-2022 ALP [Catalytic activity/Vol] 65 U/L 32-92 [facility] Serum or plasma anion gap de terminationOrdered By: Yevgeniy Cabrera on 04-28-2022 Anion gap [Moles/Vol] 14.6 mmol/L 6.0-15.0 [facility] Serum or plasma aspartate am inotransferase measurement (enzymatic activity/volume)Ordered By: Yevgeniy Cabrera on 04-28-2022 AST [Catalytic activity/Vol] 26 U/L 10-42 [facility] Serum or plasma calcium donaldo urement (mass/volume)Ordered By: Yevgeniy Cabrera on 04-28-2022 Calcium [Mass/Vol] 9.3 mg/dL 8.2-10.2 [facility] Serum or plasma chloride claudia surement (moles/volume)Ordered By: Yevgeniy Cabrera on 04-28-2022 Chloride [Moles/Vol] 105 mmol/L 95-114 [facility] Serum or plasma glucose donaldo urement (mass/volume)Ordered By: Yevgeniy Cabrera on 04-28-2022 Glucose [Mass/Vol] 112 mg/dL 70-100 [facility] Comment on above: ADA recommended refe rence rangeRandom Glucose Reference Range is dependent on time and content of last meal. Glucose of more than 200 mg/dL in a nonstressed, ambulatory subject supports the diagnosis of Diabetes Mellitus. Serum or plasma potassium me asurement (moles/volume)Ordered By: Yevgeniy Cabrera on 04-28-2022 Potassium [Moles/Vol] 3.7 mmol/L 3.5-5.1 [facility] Serum or plasma sodium measu rement (moles/volume)Ordered By: Yevgeniy Cabrera on 04-28-2022 Sodium [Moles/Vol] 137 mmol/L 136-146 [facility] Serum or plasma total biliru bin measurement (mass/volume)Ordered By: Yevgeniy Cabrera on 04-28-2022 Bilirubin [Mass/Vol] 0.5 mg/dL 0.3-1.2 [facility] Serum or plasma total carbon dioxide measurement (moles/volume)Ordered By: Yevgeniy Cabrera on 04-28-2022 CO2 [Moles/Vol] 21.1 mmol/L 22.0-30.0 [facility] Serum or plasma urea nitroge n measurement (mass/volume)Ordered By: Yevgeniy Cabrera on 04-28-2022 Urea nitrogen [Mass/Vol] 5 mg/dL 9-23 [facility] Specific gravity Auto test s trip (U) [Rel density]Ordered By: Yevgeniy Cabrera on 04-28-2022 Specific gravity (U) [Rel density] 1.005 1.001-1.030 [facility] Squamous epithelial cells de tection in urine sediment by light microscopyOrdered By: Yevgeniy Cabrera on 04-28-2022 Epithelial cells.squamous LM Ql (Urine sed) 0-1 [HPF] 0-2 [facility] Teardrop cell detectionOrder ed By: Yevgeniy Cabrera on 04-28-2022 Dacrocytes LM Ql (Bld) Slight [facility] Urine bacteria detection by automated methodOrdered By: Yevgeniy Cabrera on 04-28-2022 Bacteria Auto Ql (U) None seen None Seen [facility] Urine clarity by refractomet ry automatedOrdered By: Yevgeniy Cabrera on 04-28-2022 Clarity Refractometry automated (U) Cloudy Clear [facility] Urine glucose measurement by automated test strip (mass/volume)Ordered By: Yevgeniy Cabrera on 04-28-2022 Glucose Auto test strip (U) [Mass/Vol] Normal mg/dL Normal [facility] Urine hemoglobin detection b y automated test stripOrdered By: Yevgeniy Cabrera on 04-28-2022 Hemoglobin Auto test strip Ql (U) Negative Negative [facility] Urine leukocyte esterase det ection by automated test stripOrdered By: Yevgeniy Cabrera on 04-28-2022 Leukocyte esterase Auto test strip Ql (U) 1+ Negative [facility] Urobilinogen Auto test strip (U) [Mass/Vol]Ordered By: Yevgeniy Cabrera on 04-28-2022 Urobilinogen (U) [Mass/Vol] Normal mg/dL Normal [facility] pH Auto test strip (U)Ordere d By: Yevgeniy Cabrera on 04-28-2022 pH (U) 6.5 [pH] 5.0-9.0 [facility] ALLIED HEALTHon 04-09-2022 ALLIED HEALTH HNO ID: [id number] Author: Donald Villegas Service: ? Author Type: [...] SIGNATURE: Donald Villegas Therapist PATIENT NAME: Antonia Noyola DATE: April 09, 2022 TIME: 2:21 PM PAGER/CONTACT #: Angela [facility] Andrew 03-19-2022 FR[place] Telephone (NCCAP) ANTONIA NOYOLA Regino ([id number]) 1985 F Date Time Provider Department 03/19/22 [...] Date Reviewed: 03/10/2022 Reviewed by: Madyson Ni APRN.TOE CLOSING MACHINE TENDER - Fully Assessed Reason for Visit: No [...] Encounter Status:Closed by CORBIN ROSE on 03/19/22 [facility] CNPN Telephone (HEMTSA) ANTONIA NOYOLA ([id number]) 1985 F Date Time Provider Department 03/19/22 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 03/19/2022 4:48 PM Signed 1st report of treatment-Non oncology regimen (Venofer) No FA available for this treatment at this time. Allergies As of Date: 03/19/2022 Noted Allergy Reaction MORPHINE 06/20/2018 14 - Other: See Comments Comments: Spasms Date Reviewed: 03/10/2022 Reviewed by: Madyson Ni APRN.TOE CLOSING MACHINE TENDER - Fully Assessed Reason for Visit: Benefits Investigation [6860] Prescriptions as of 03/19/2022 - ALPRAZolam (XANAX) [...] of iron [K90.9] 10/27/2020 Encounter Status:Closed by [facility], SPARKLE Chicas on 03/19/22 [facility] 03-15-2022 CNPN Telephone (HEMBRITTANY) ANTONIA NOYOLA ([id number]) 1985 F Date Time Provider Department 03/15/22 [...] Date Reviewed: 03/10/2022 Reviewed by: Madyson Ni APRN.TOE CLOSING MACHINE TENDER - Fully Assessed Reason for Visit: Social [...] SHARON SAAVEDRA on 03/15/22 Normal [facility] CBC W Auto Differential pane l (Bld)on 03-10-2022 Basophils (Bld) [#/Vol] 0.05 10*3/uL Normal <0.11 [facility] Comment on above: Order Comment: Speci men Type: BLOOD SPECIMEN Ordering Facility: [facility] Address: [address] [place] [address] Performed By: #### 5 7021-8 #### [facility] CLIA [id number] [address] [place] [address] 64708 Basophils/100 WBC (Bld) 0.8 % Normal C [facility] Comment on above: Order Comment: Speci men Type: BLOOD SPECIMEN Ordering Facility: [facility] Address: [address] [place] [address] Performed By: #### 5 7021-8 #### [facility] CLIA [id number] [address] [place] [address] 29451 Differential cell count method Nom (Bld) Auto Normal [facility] Comment on above: Order Comment: Speci men Type: BLOOD SPECIMEN Ordering Facility: [facility] Address: [address] [place] [address] Performed By: #### 5 7021-8 #### [facility] CLIA [id number] [address] [place] [address] 96701 Eosinophils (Bld) [#/Vol] 0.15 10*3/uL Normal <0.46 [facility] Comment on above: Order Comment: Speci men Type: BLOOD SPECIMEN Ordering Facility: [facility] Address: [address] [place] [address] Performed By: #### 5 7021-8 #### [facility] CLIA [id number] [address] [place] [address] 56223 Eosinophils/100 WBC (Bld) 2.3 % Normal [facility] Comment on above: Order Comment: Speci men Type: BLOOD SPECIMEN Ordering Facility: [facility] Address: [address] [place] [address] Performed By: #### 5 7021-8 #### [facility] CLIA [id number] [address] [place] [address] 62059 Erythrocyte distribution width (RBC) [Ratio] 17.4 % High 11.5-15.0 [facility] Comment on above: Order Comment: Speci men Type: BLOOD SPECIMEN Ordering Facility: [facility] Address: [address] [place] [address] Performed By: #### 5 7021-8 #### [facility] CLIA [id number] [address] [place] [address] 57926 Hematocrit (Bld) [Volume fraction] 29.4 % Low 36.0-46.0 [facility] Comment on above: Order Comment: Speci men Type: BLOOD SPECIMEN Ordering Facility: [facility] Address: [address] [place] [address] Performed By: #### 5 7021-8 #### [facility] CLIA [id number] [address] [place] [address] 09915 Hemoglobin (Bld) [Mass/Vol] 8.5 g/dL Low 11.5-15.5 [facility] Comment on above: Order Comment: Speci men Type: BLOOD SPECIMEN Ordering Facility: [facility] Address: [address] [place] [address] Performed By: #### 5 7021-8 #### [facility] CLIA [id number] [address] [place], [place] [address] IMMATURE GRAN % 0.3 % Normal [facility] Comment on above: Order Comment: Speci men Type: BLOOD SPECIMEN Ordering Facility: [facility] Address: [address] [place] [address] Performed By: #### 5 7021-8 #### [facility] CLIA [id number] [address] [place] [address] 57190 IMMATURE GRAN ABS <0.03 Normal <0.10 [facility] Comment on above: Order Comment: Speci men Type: BLOOD SPECIMEN Ordering Facility: [facility] Address: [address] [place] [address] Performed By: #### 5 7021-8 #### [facility] CLIA [id number] [address] [place] [address] 28123 Lymphocytes (Bld) [#/Vol] 3.62 10*3/uL Normal 1.00-4.00 [facility] Comment on above: Order Comment: Speci men Type: BLOOD SPECIMEN Ordering Facility: [facility] Address: [address] [place] [address] Performed By: #### 5 7021-8 #### [facility] CLIA [id number] [address] [place] [address] 30446 Lymphocytes/100 WBC (Bld) 54.8 % Normal [facility] Comment on above: Order Comment: Speci men Type: BLOOD SPECIMEN Ordering Facility: [facility] Address: [address] [place] [address] Performed By: #### 5 7021-8 #### [facility] CLIA [id number] [address] [place] [address] 42944 MCH (RBC) [Entitic mass] 20.3 pg Low 26.0-34.0 [facility] Comment on above: Order Comment: Speci men Type: BLOOD SPECIMEN Ordering Facility: [facility] Address: [address] [place] [address] Performed By: #### 5 7021-8 #### [facility] CLIA [id number] [address] [place] [address] 83253 MCHC (RBC) [Mass/Vol] 28.9 g/dL Low 30.5-36.0 [facility] Comment on above: Order Comment: Speci men Type: BLOOD SPECIMEN Ordering Facility: [facility] Address: [address] [place] [address] Performed By: #### 5 7021-8 #### [facility] CLIA [id number] [address] [place] [address] 11770 MCV (RBC) [Entitic vol] 70.3 fL Low 80.0-100.0 C [facility] Comment on above: Order Comment: Speci men Type: BLOOD SPECIMEN Ordering Facility: [facility] Address: [address] [place] [address] Performed By: #### 5 7021-8 #### [facility] CLIA [id number] [address] [place] [address] 46455 Monocytes (Bld) [#/Vol] 0.38 10*3/uL Normal <0.87 [facility] Comment on above: Order Comment: Speci men Type: BLOOD SPECIMEN Ordering Facility: [facility] Address: [address] [place], [place] [address] Performed By: #### 5 7021-8 #### [facility] CLIA [id number] [address] [place] [address] 36263 Monocytes/100 WBC (Bld) 5.7 % Normal [facility] Comment on above: Order Comment: Speci men Type: BLOOD SPECIMEN Ordering Facility: [facility] Address: [address] [place], [place] [address] Performed By: #### 5 7021-8 #### [facility] CLIA [id number] [address] [place] [address] 40676 Neutrophils (Bld) [#/Vol] 2.39 10*3/uL Normal 1.45-7.50 [facility] Comment on above: Order Comment: Speci men Type: BLOOD SPECIMEN Ordering Facility: [facility] Address: [address] [place], [place] [address] Performed By: #### 5 7021-8 #### [facility] CLIA [id number] [address] [place] [address] 05530 Neutrophils/100 WBC (Bld) 36.1 % Normal [facility] Comment on above: Order Comment: Speci men Type: BLOOD SPECIMEN Ordering Facility: [facility] Address: [address] [place], [place] [address] Performed By: #### 5 7021-8 #### [facility] CLIA [id number] [address] [place] [address] 16160 Nucleated RBC (Bld) [#/Vol] 10*3/uL Normal <0.01 [facility] Comment on above: Order Comment: Speci men Type: BLOOD SPECIMEN Ordering Facility: [facility] Address: [address] [place], [place] [address] Performed By: #### 5 7021-8 #### [facility] CLIA [id number] [address] [place] [address] 83028 Nucleated RBC/100 WBC (Bld) [Ratio] 0.0 /100 WBC Normal [facility] Comment on above: Order Comment: Speci men Type: BLOOD SPECIMEN Ordering Facility: [facility] Address: [address] [place] [address] Performed By: #### 5 7021-8 #### [facility] CLIA [id number] [address] [place] [address] 92169 Platelet mean volume (Bld) [Entitic vol] 8.8 fL Low 9.0-12.7 [facility] Comment on above: Order Comment: Speci men Type: BLOOD SPECIMEN Ordering Facility: [facility] Address: [address] [place] [address] Performed By: #### 5 7021-8 #### [facility] CLIA [id number] [address] [place] [address] 59181 Platelets (Bld) [#/Vol] 419 10*3/uL High 150-400 [facility] Comment on above: Order Comment: Speci men Type: BLOOD SPECIMEN Ordering Facility: [facility] Address: [address] [place] [address] Performed By: #### 5 7021-8 #### [facility] CLIA [id number] [address] [place] [address] 32184 RBC (Bld) [#/Vol] 4.18 10*6/uL Normal 3.90-5.20 [facility] Comment on above: Order Comment: Speci men Type: BLOOD SPECIMEN Ordering Facility: [facility] Address: [address] [place] [address] Performed By: #### 5 7021-8 #### [facility] CLIA [id number] [address] [place] [address] 38772 WBC (Bld) [#/Vol] 6.61 10*3/uL Normal 3.70-11.00 [facility] Comment on above: Order Comment: Speci men Type: BLOOD SPECIMEN Ordering Facility: [facility] Address: [address], [place] [address] Performed By: #### 5 7021-8 #### [facility] CLIA [id number] [address] [place] [address] 41032 CNOVSPon 03-10-2022 CNOVSP Visit (SP) Office (HEMASA) MAGALIANTONIA Lacy ([id number]) 1985 F Date Time Provider Department 03/10/22 2:00 PM MADYSON NI During your visit today, we recorded the following information about you: Temperature Pulse Respiration Blood pressure 97.9 degrees 95/minute 16/minute 130/75 Weight Height 83.4 kg 1.651 m Madyson Ni APRN.CNP 03/10/2022 2:25 PM Signed NAME: Antonia Noyola CLINIC NO.: [id number] DATE OF SERVICE: March 10, 2022 (Elements [...] 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 She works 7 PM to [...] deficiency. Recent laboratories from [facility] October 04, 2020 show hemoglobin [...] (more content not included)... Normal [facility] Comprehensive metabolic 2000 panelon 03-10-2022 Albumin [Mass/Vol] 4.0 g/dL Normal 3.9-4.9 [facility] Comment on above: Order Comment: Roselyn conway Type: BLOOD SPECIMEN Ordering Facility: [facility] Address: [address] [place] [place] [address] Performed By: #### 2 4323-8 #### [facility] CLIA [id number] [address] [place] [address] 08513 ALP [Catalytic activity/Vol] 55 U/L Normal 34-123 [facility] Comment on above: Order Comment: Roselyn conway Type: BLOOD SPECIMEN Ordering Facility: [facility] Address: [address] [address] Performed By: #### 2 4323-8 #### [facility] CLIA [id number] [address] [place] [address] ALT [Catalytic activity/Vol] 12 U/L Normal 7-38 [facility] Comment on above: Order Comment: Speci men Type: BLOOD SPECIMEN Ordering Facility: [facility] Address: [address] [address] Performed By: #### 2 4323-8 #### [facility] CLIA [id number] [address] [place] [address] Anion gap [Moles/Vol] 9 mmol/L Normal 9-18 [facility] Comment on above: Order Comment: Speci men Type: BLOOD SPECIMEN Ordering Facility: [facility] Address: [address] [place] [address] Performed By: #### 2 4323-8 #### [facility] CLIA [id number] [address] [place] [address] 03549 AST [Catalytic activity/Vol] 14 U/L Normal 13-35 [facility] Comment on above: Order Comment: Speci men Type: BLOOD SPECIMEN Ordering Facility: [facility] Address: [address] [place] [address] Performed By: #### 2 4323-8 #### [facility] CLIA [id number] [address] [place] [address] 92082 Bilirubin [Mass/Vol] 0.3 mg/dL Normal 0.2-1.3 [facility] Comment on above: Order Comment: Speci men Type: BLOOD SPECIMEN Ordering Facility: [facility] Address: [address] [address] Performed By: #### 2 4323-8 #### [facility] CLIA [id number] [address] [place] [address] 82336 Calcium [Mass/Vol] 8.8 mg/dL Normal 8.5-10.2 [facility] Comment on above: Order Comment: Speci men Type: BLOOD SPECIMEN Ordering Facility: [facility] Address: [address] [place] [address] Performed By: #### 2 4323-8 #### [facility] CLIA [id number] [address] [place] [address] Chloride [Moles/Vol] 105 mmol/L Normal 97-105 [facility] Comment on above: Order Comment: Speci men Type: BLOOD SPECIMEN Ordering Facility: [facility] Address: [address] [place] [address] Performed By: #### 2 4323-8 #### [facility] CLIA [id number] [address] [place] [address] 67913 CO2 [Moles/Vol] 24 mmol/L Normal 22-30 [facility] Comment on above: Order Comment: Speci men Type: BLOOD SPECIMEN Ordering Facility: [facility] Address: [address] [place] [address] Performed By: #### 2 4323-8 #### [facility] CLIA [id number] [address] [place] [address] 68338 Creatinine [Mass/Vol] 0.65 mg/dL Normal 0.58-0.96 [facility] Comment on above: Order Comment: Speci men Type: BLOOD SPECIMEN Ordering Facility: [facility] Address: [address] [place] [address] Performed By: #### 2 4323-8 #### [facility] CLIA [id number] [address] [place] [address] 91849 ESTIMATED GLOMERULAR FILTRATION RATE 118 mL/min/1.73m??? Normal >=60 [facility] Comment on above: Order Comment: Speci men Type: BLOOD SPECIMEN Ordering Facility: [facility] Address: [address] [place] [address] Result Comment: Shelley mated Glomerular Filtration Rate [...] GFR. Performed By: #### 2 4323-8 #### [facility] CLIA [id number] [address] [place] [address] 19017 Glucose [Mass/Vol] 109 mg/dL High 74-99 [facility] Comment on above: Order Comment: Roselyn conway Type: BLOOD SPECIMEN Ordering Facility: [facility] Address: [address] [place] [address] Result Comment: The [place] [employer] (ADA) provides guidance for cutoff [...] Standards of Medical Care in Diabetes 2016, [place] [employer]. Diabetes Care. 2016.39(Suppl 1). Performed By: #### 2 4323-8 #### [facility] CLIA [id number] [address] [place] [address] 98532 Potassium [Moles/Vol] 3.4 mmol/L Low 3.7-5.1 [facility] Comment on above: Order Comment: Roselyn conway Type: BLOOD SPECIMEN Ordering Facility: [facility] Address: [address] [address] Performed By: #### 2 4323-8 #### [facility] CLIA [id number] [address] [place] [address] 57258 Protein [Mass/Vol] 6.5 g/dL Normal 6.3-8.0 [facility] Comment on above: Order Comment: Roselyn conway Type: BLOOD SPECIMEN Ordering Facility: [facility] Address: [address] [address] Performed By: #### 2 4323-8 #### [facility] CLIA [id number] [address] [place] [address] Sodium [Moles/Vol] 138 mmol/L Normal 136-144 [facility] Comment on above: Order Comment: Speci men Type: BLOOD SPECIMEN Ordering Facility: [facility] Address: [address] [place] [address] Performed By: #### 2 4323-8 #### [facility] CLIA [id number] [address] [place] [address] 87116 Urea nitrogen [Mass/Vol] 8 mg/dL Normal 7-21 [facility] Comment on above: Order Comment: Speci men Type: BLOOD SPECIMEN Ordering Facility: [facility] Address: [address] [place] [address] Performed By: #### 2 4323-8 #### [facility] CLIA [id number] [address] [place] [address] 81151 Ferritin SerPl-mCncon 2021 Ferritin [Mass/Vol] 5.4 ng/mL Low 14.7-205.1 [facility] Comment on above: Order Comment: Speci men Type: BLOOD SPECIMEN Ordering Facility: [facility] Address: [address] [place] [address] Performed By: #### 5 0190-8, 2131-9, 2283-8, 6-4 #### [facility] CLIA [id number] [address] [place] [address] [place] Folate SerPl-mCncon 03-10-20 Folate [Mass/Vol] 8.7 ng/mL Normal >4.7 [facility] Comment on above: Order Comment: Speci men Type: BLOOD SPECIMEN [facility] [facility] Address: [address] [place] [address] Performed By: #### 5 0190-8, 2131-9, 4-8, 6-4 #### [facility] CLIA [id number] [address] [place] [address] [place] Iron and Iron binding capaci ty panelon 03-10-2022 Iron [Mass/Vol] 17 ug/dL Low 41-186 [facility] Comment on above: Order Comment: Speci men Type: BLOOD SPECIMEN Ordering Facility: [facility] Address: [address] [place] [address] Performed By: #### 5 0190-8, 9, 8, 6-4 #### [facility] CLIA [id number] [address] [place] [address] [place] Iron binding capacity [Mass/Vol] 422 ug/dL High 232-386 [facility] Comment on above: Order Comment: Speci men Type: BLOOD SPECIMEN Ordering Facility: [facility] Address: [address] [place] [address] Performed By: #### 5 0190-8, 9, 8, 6-4 #### [facility] CLIA [id number] [address] [place] [address] [place] Iron/TIBC [Molar ratio] 4.0 % Low 15.0-57.0 C [facility] Comment on above: Order Comment: Speci men Type: BLOOD SPECIMEN Ordering Facility: [facility] Address: [address] [place], [place] [id number] Performed By: #### 5 0190-8, 9, 8, 2275-4 #### [facility] CLIA [id number] [address] [place] [address] [place] Vit B12 SerPl-mCncon 022 Cobalamin (Vitamin B12) [Mass/Vol] 367 pg/mL Normal 232-1245 [facility] Comment on above: Order Comment: Speci men Type: BLOOD SPECIMEN Ordering Facility: [facility] Address: [address] [place], [place] [id number] Performed By: #### 5 0190-8, 2132-9, 2284-8, 2276-4 #### [facility] CLIA [id number] [address] [place] [address] [place] [facility] CNPDeborah 02-18-2022 CNPN Telephone (HEMASA) ANTONIA NOYOLA ([id number]) 1985 F Date Time Provider Department 02/18/22 [...] [D50.0] Order(s):CBC + DIFF [SQCBCDIF] Order #: [id number] FUTURE COMP METABOLIC PANEL [SQCMP] Order #: [id number] FUTURE IRON + TIBC [SQIRON] Order #: [id number] FUTURE FERRITIN BLD [SQFERR] Order #: [id number] FUTURE VITAMIN B12 BLOOD [SQB12] Order #: [id number] FUTURE FOLATE SERUM [SQSERFOL] Order #: [id number] FUTURE Prescriptions as of 02/20/2022 - ALPRAZolam [...] Status:Closed by GINO REID on 02/20/22 Normal [facility] Basophils Auto (Bld) [#/Vol] Ordered By: Jennifer Duran on 02-12-2022 Basophils (Bld) [#/Vol] 0.1 10*3/uL 0.0-0.2 [facility] Basophils/100 WBC Auto (Bld) Ordered By: Jennifer Duran on 02-12-2022 Basophils/100 WBC (Bld) 1.0 % . F [facility] Blood anisocytosis detection Ordered By: Jennifer Duran on 02-12-2022 Anisocytosis Ql (Bld) Moderate [facility] Blood hemoglobin measurement (mass/volume)Ordered By: Jennifer Duran on 02-12-2022 Hemoglobin (Bld) [Mass/Vol] 8.5 g/dL 11.8-15.4 [facility] Blood leukocytes automated c ount (number/volume)Ordered By: Jennifer Duran on 02-12-2022 WBC (Bld) [#/Vol] 5.9 10*3/uL 4.5-11.0 [facility] Body fluid albumin measureme nt (mass/volume)Ordered By: Jennifer Duran on 02-12-2022 Albumin (Body fld) [Mass/Vol] 3.7 g/dL 3.2-5.5 [facility] CT biopsyOrdered By: Jennifer avila on 02-12-2022 Transferrin [Mass/Vol] 356 mg/dL 180-380 [facility] Creatinine and Glomerular fi ltration rate.predicted panel (S/P/Bld)Ordered By: Jennifer Duran on 02-12-2022 Creatinine [Mass/Vol] 0.72 mg/dL 0.44-1.03 [facility] Eosinophils Auto (Bld) [#/Vo l]Ordered By: Jennifer Duran on 02-12-2022 Eosinophils (Bld) [#/Vol] 0.1 10*3/uL 0.0-0.45 [facility] Eosinophils/100 WBC Auto (Bl d)Ordered By: Jennifer Duran on 02-12-2022 Eosinophils/100 WBC (Bld) 2.2 % . [facility] Erythrocyte distribution wid th Auto (RBC) [Ratio]Ordered By: Jennifer Duran on 02-12-2022 Erythrocyte distribution width (RBC) [Ratio] 17.3 % 11.9-15.3 [facility] Estimated glomerular filtrat ion rate (GFR) non- AmericanOrdered By: Jennifer Duran on 02-12-2022 GFR/1.73 sq M.predicted among non-blacks MDRD (S/P/Bld) [Vol rate/Area] > 60 mL/Min [facility] Ferritin [Mass/volume] in Se rum or PlasmaOrdered By: Jennifer Duran on 02-12-2022 Ferritin [Mass/Vol] 5.1 ng/mL 11-306.[address] [facility] Globulin Calc (S) [Mass/Vol] Ordered By: Jennifer Duran on 02-12-2022 Globulin (S) [Mass/Vol] 2.9 g/dL F [facility] Hematocrit Auto (Bld) [Volum e fraction]Ordered By: Jennifer Duran on 02-12-2022 Hematocrit (Bld) [Volume fraction] 27.9 % 34.0-46.4 [facility] Hypochromia detectionOrdered By: Jennifer Duran on 02-12-2022 Hypochromia Ql (Bld) Slight [facility] Iron [Mass/volume] in Serum or PlasmaOrdered By: Jennifer Duran on 02-12-2022 Iron [Mass/Vol] 11 ug/dL 40-150 [facility] Iron binding capacity [Mass/ volume] in Serum or PlasmaOrdered By: Jennifer Duran on 02-12-2022 Iron binding capacity [Mass/Vol] 498 ug/dL 255-450 [facility] Iron saturation [Mass Fracti on] in Serum or PlasmaOrdered By: Jennifer Duran on 02-12-2022 Iron saturation [Mass fraction] 2.0 % 20-50 [facility] Laboratory - Hematology and Cell countsOrdered By: Jennifer Duran on 02-12-2022 Nucleated RBC/100 WBC (Bld) [Ratio] 0.3 % 0-0.5 [facility] Lymphocytes Auto (Bld) [#/Vo l]Ordered By: Jennifer Duran on 02-12-2022 Lymphocytes (Bld) [#/Vol] 3.0 10*3/uL 1.00-4.8 [facility] Lymphocytes/100 WBC Auto (Bl d)Ordered By: Jennifer Duran on 02-12-2022 Lymphocytes/100 WBC (Bld) 50.8 % . [facility] MCH Auto (RBC) [Entitic mass ]Ordered By: Jennifer Duran on 02-12-2022 MCH (RBC) [Entitic mass] 20.1 pg 24.7-34.3 [facility] MCHC Auto (RBC) [Mass/Vol]Or dered By: Jennifer Duran on 02-12-2022 MCHC (RBC) [Mass/Vol] 30.4 g/dL 32.0-35.0 [facility] MCV Auto (RBC) [Entitic vol] Ordered By: Jennifer Duran on 02-12-2022 MCV (RBC) [Entitic vol] 66.3 fL 80-100 F [facility] Monocytes Auto (Bld) [#/Vol] Ordered By: Jennifer Duran on 02-12-2022 Monocytes (Bld) [#/Vol] 0.3 10*3/uL 0.0-0.8 [facility] Monocytes/100 WBC Auto (Bld) Ordered By: Jennifer Duran on 02-12-2022 Monocytes/100 WBC (Bld) 5.7 % . F [facility] Neutrophils Auto (Bld) [#/Vo l]Ordered By: Jennifer Duran on 02-12-2022 Neutrophils (Bld) [#/Vol] 2.4 10*3/uL 1.8-7.7 [facility] Neutrophils/100 WBC Auto (Bl d)Ordered By: Jennifer Duran on 02-12-2022 Neutrophils/100 WBC (Bld) 40.3 % . [facility] No Panel InformationOrdered By: Jennifer Duran on 02-12-2022 Estimated GFR () > 60 mL/Min [facility] Comment on above: GFR estimated refere nce range: According to KDOQI guidelines, <60 ml/min/1.73m2 is sufficient to diagnose a patient with chronic kidney disease. Microcytosis Moderate [facility] Creatinine Clearance (Chem N/A [facility] Platelet Estimate Normal Normal [facility] Platelet Morphology Comment Normal Normal [facility] Platelet mean volume Auto (B ld) [Entitic vol]Ordered By: Jennifer Duran on 02-12-2022 Platelet mean volume (Bld) [Entitic vol] 8.1 fL 6.3-10.7 [facility] Platelets Auto (Bld) [#/Vol] Ordered By: Jennifer Duran on 02-12-2022 Platelets (Bld) [#/Vol] 459 10*3/uL 150-450 [facility] Protein [Mass/volume] in Ser um or PlasmaOrdered By: Jennifer Duran on 02-12-2022 Protein [Mass/Vol] 6.6 g/dL 6.1-7.9 [facility] RBC Auto (Bld) [#/Vol]Ordere d By: Jennifer Duran on 02-12-2022 RBC (Bld) [#/Vol] 4.20 10*6/uL 3.60-5.[address] [facility] RBC morphologyOrdered By: Pool Duran on 02-12-2022 RBC morphology finding Nom (Bld) N/A [facility] Serum or plasma alanine syed otransferase measurement without P-5'-P (enzymatic activiOrdered By: Jennifer Duran on 02-12-2022 ALT No additional P-5'-P [Catalytic activity/Vol] 69 U/L 10-60 [facility] Serum or plasma albumin/glob ulin mass ratioOrdered By: Jennifer Duran on 02-12-2022 Albumin/Globulin [Mass ratio] 1.3 {ratio} [facility] Serum or plasma alkaline zeeshan sphatase measurement (enzymatic activity/volume)Ordered By: Jennifer Duran on 02-12-2022 ALP [Catalytic activity/Vol] 73 U/L 32-92 [facility] Serum or plasma anion gap de terminationOrdered By: Jennifer Duran on 02-12-2022 Anion gap [Moles/Vol] 13.2 mmol/L 6.0-15.0 [facility] Serum or plasma aspartate am inotransferase measurement (enzymatic activity/volume)Ordered By: Jennifer Duran on 02-12-2022 AST [Catalytic activity/Vol] 42 U/L 10-42 [facility] Serum or plasma calcium donaldo urement (mass/volume)Ordered By: Jennifer Duran on 02-12-2022 Calcium [Mass/Vol] 9.3 mg/dL 8.2-10.2 [facility] Serum or plasma chloride claudia surement (moles/volume)Ordered By: Jennifer Duran on 02-12-2022 Chloride [Moles/Vol] 101 mmol/L 95-114 [facility] Serum or plasma glucose donaldo urement (mass/volume)Ordered By: Jennifer Duran on 02-12-2022 Glucose [Mass/Vol] 98 mg/dL 70-100 [facility] Comment on above: ADA recommended refe [...] on 02-12-2022 Potassium [Moles/Vol] 3.6 mmol/L 3.5-5.1 [facility] Serum or plasma sodium measu rement (moles/volume)Ordered By: Jennifer Duran on 02-12-2022 Sodium [Moles/Vol] 136 mmol/L 136-146 [facility] Serum or plasma total biliru bin measurement (mass/volume)Ordered By: Jennifer Duran on 02-12-2022 Bilirubin [Mass/Vol] 0.4 mg/dL 0.3-1.2 [facility] Serum or plasma total carbon dioxide measurement (moles/volume)Ordered By: Jennifer Duran on 02-12-2022 CO2 [Moles/Vol] 25.4 mmol/L 22.0-30.0 [facility] Serum or plasma urea nitroge n measurement (mass/volume)Ordered By: Jennifer Duran on 02-12-2022 Urea nitrogen [Mass/Vol] 4 mg/dL 9- [facility] Basophils Auto (Bld) [#/Vol] Ordered By: Kendra Persaud on 09-14-2021 Basophils (Bld) [#/Vol] 0.1 10*3/uL 0.0-0.2 [facility] Basophils/100 WBC Auto (Bld) Ordered By: Kendra Persaud on 09-14-2021 Basophils/100 WBC (Bld) 1.3 % F [facility] Bilirubin Test strip Ql (U)O rdered By: Kendra Persaud on 09-14-2021 Bilirubin Ql (U) Negative Negative [facility] Blood hemoglobin measurement (mass/volume)Ordered By: Kendra Persaud on 09-14-2021 Hemoglobin (Bld) [Mass/Vol] 9.7 g/dL 11.8-15.4 [facility] Blood leukocytes automated c ount (number/volume)Ordered By: Kendra Persaud on 09-14-2021 WBC (Bld) [#/Vol] 8.9 10*3/uL 4.5-11.0 [facility] Body fluid albumin measureme nt (mass/volume)Ordered By: Kendra Persaud on 09-14-2021 Albumin (Body fld) [Mass/Vol] 3.7 g/dL 3.2-5.5 [facility] Color Auto (U)Ordered By: Jazmin Persaud on 09-14-2021 Color (U) Yellow Yellow [facility] Creatinine and Glomerular fi ltration rate.predicted panel (S/P/Bld)Ordered By: Kendra Persaud on 09-14-2021 Creatinine [Mass/Vol] 0.71 mg/dL 0.44-1.03 [facility] Eosinophils Auto (Bld) [#/Vo l]Ordered By: Kendra Persaud on 09-14-2021 Eosinophils (Bld) [#/Vol] 0.0 10*3/uL 0.0-0.45 [facility] Eosinophils/100 WBC Auto (Bl d)Ordered By: Kendra Persaud on 09-14-2021 Eosinophils/100 WBC (Bld) 0.4 % [facility] Erythrocyte distribution wid th Auto (RBC) [Ratio]Ordered By: Kendra Persaud on 09-14-2021 Erythrocyte distribution width (RBC) [Ratio] 17.0 % 11.9-15.3 [facility] Estimated glomerular filtrat ion rate (GFR) non- AmericanOrdered By: Kendra Persaud on 09-14-2021 GFR/1.73 sq M.predicted among non-blacks MDRD (S/P/Bld) [Vol rate/Area] > 60 mL/Min [facility] Globulin Calc (S) [Mass/Vol] Ordered By: Kendra Persaud on 09-14-2021 Globulin (S) [Mass/Vol] 3.2 g/dL F [facility] HCG ( test) IA.rapi d Ql (U)Ordered By: Kendra Persaud on 09-14-2021 HCG ( test) Ql (U) Negative [facility] Hematocrit Auto (Bld) [Volum e fraction]Ordered By: Kendra Persaud on 09-14-2021 Hematocrit (Bld) [Volume fraction] 31.9 % 34.0-46.4 [facility] Ketones Auto test strip (U) [Mass/Vol]Ordered By: Kendra Persaud on 09-14-2021 Ketones (U) [Mass/Vol] Negative Negative [facility] - Chemistry and C hemistry - challengeOrdered By: Kendra Persaud on 09-14-2021 Lipase [Catalytic activity/Vol] 36.0 U/L 22-51 [facility] Laboratory - Hematology and Cell countsOrdered By: Kendra Persaud on 04-04-2022 Nucleated RBC/100 WBC (Bld) [Ratio] 0.0 % 0-0.5 [facility] Lymphocytes Auto (Bld) [#/Vo l]Ordered By: Kendra Persaud on 09-14-2021 Lymphocytes (Bld) [#/Vol] 4.1 10*3/uL 1.00-4.8 [facility] Lymphocytes/100 WBC Auto (Bl d)Ordered By: Kendra Persaud on 09-14-2021 Lymphocytes/100 WBC (Bld) 45.7 % [facility] MCH Auto (RBC) [Entitic mass ]Ordered By: Kendra Persaud on 09-14-2021 MCH (RBC) [Entitic mass] 21.3 pg 24.7-34.3 [facility] MCHC Auto (RBC) [Mass/Vol]Or dered By: Kendra Persaud on 09-14-2021 MCHC (RBC) [Mass/Vol] 30.4 g/dL 32.0-35.0 [facility] MCV Auto (RBC) [Entitic vol] Ordered By: Kendra Persaud on 09-14-2021 MCV (RBC) [Entitic vol] 70.0 fL 80-100 F [facility] Monocytes Auto (Bld) [#/Vol] Ordered By: Kendra Persaud on 09-14-2021 Monocytes (Bld) [#/Vol] 0.7 10*3/uL 0.0-0.8 [facility] Monocytes/100 WBC Auto (Bld) Ordered By: Kendra Persaud on 09-14-2021 Monocytes/100 WBC (Bld) 7.8 % F [facility] Neutrophils Auto (Bld) [#/Vo l]Ordered By: Kendra Persaud on 09-14-2021 Neutrophils (Bld) [#/Vol] 4.0 10*3/uL 1.8-7.7 [facility] Neutrophils/100 WBC Auto (Bl d)Ordered By: Kendra Persaud on 09-14-2021 Neutrophils/100 WBC (Bld) 44.8 % [facility] Nitrite Test strip Ql (U)Ord ered By: Kendra Persaud on 09-14-2021 Nitrite Ql (U) Negative Negative [facility] No Panel InformationOrdered By: Kendra Persaud on 09-14-2021 Estimated GFR () > 60 mL/Min [facility] Comment on above: GFR estimated refere nce range: According to KDOQI guidelines, <60 ml/min/1.73m2 is sufficient to diagnose a patient with chronic kidney disease. Pharmacy Creatinine Clearance (Chem 119.44 [facility] Platelet mean volume Auto (B ld) [Entitic vol]Ordered By: Kendra Persaud on 09-14-2021 Platelet mean volume (Bld) [Entitic vol] 7.4 fL 6.3-10.7 [facility] Platelets Auto (Bld) [#/Vol] Ordered By: Kendra Persaud on 09-14-2021 Platelets (Bld) [#/Vol] 604 10*3/uL 150-450 [facility] Protein Auto test strip (U) [Mass/Vol]Ordered By: Kendra Persaud on 09-14-2021 Protein (U) [Mass/Vol] Negative Negative [facility] Protein [Mass/volume] in Ser um or PlasmaOrdered By: Kendra Persaud on 09-14-2021 Protein [Mass/Vol] 6.9 g/dL 6.1-7.9 [facility] RBC Auto (Bld) [#/Vol]Ordere d By: Kendra Persaud on 09-14-2021 RBC (Bld) [#/Vol] 4.55 10*6/uL 3.60-5.[address] [facility] Serum or plasma alanine syed otransferase measurement without P-5'-P (enzymatic activiOrdered By: Kendra Persaud on 09-14-2021 ALT No additional P-5'-P [Catalytic activity/Vol] 16 U/L 10-60 [facility] Serum or plasma albumin/glob ulin mass ratioOrdered By: Kendra Persaud on 09-14-2021 Albumin/Globulin [Mass ratio] 1.2 {ratio} [facility] Serum or plasma alkaline zeeshan sphatase measurement (enzymatic activity/volume)Ordered By: Kendra Persaud on 09-14-2021 ALP [Catalytic activity/Vol] 48 U/L 32-92 [facility] Serum or plasma aspartate am inotransferase measurement (enzymatic activity/volume)Ordered By: Kendra Persaud on 09-14-2021 AST [Catalytic activity/Vol] 17 U/L 10-42 [facility] Serum or plasma calcium donaldo urement (mass/volume)Ordered By: Kendra Persaud on 09-14-2021 Calcium [Mass/Vol] 9.0 mg/dL 8.2-10.2 [facility] Serum or plasma chloride claudia surement (moles/volume)Ordered By: Kendra Persaud on 09-14-2021 Chloride [Moles/Vol] 105 mmol/L 95-114 [facility] Serum or plasma glucose donaldo urement (mass/volume)Ordered By: Kendra Persaud on 09-14-2021 Glucose [Mass/Vol] 94 mg/dL 70-100 [facility] Comment on above: ADA recommended refe rence rangeRandom Glucose Reference Range is dependent on time and content of last meal. Glucose of more than 200 mg/dL in a nonstressed, ambulatory subject supports the diagnosis of Diabetes Mellitus. Serum or plasma potassium me asurement (moles/volume)Ordered By: Kendra Persaud on 09-14-2021 Potassium [Moles/Vol] 3.1 mmol/L 3.5-5.1 [facility] Serum or plasma sodium measu rement (moles/volume)Ordered By: Kendra Persaud on 09-14-2021 Sodium [Moles/Vol] 139 mmol/L 136-146 [facility] Serum or plasma total biliru bin measurement (mass/volume)Ordered By: Kendra Persaud on 09-14-2021 Bilirubin [Mass/Vol] 0.5 mg/dL 0.3-1.2 [facility] Serum or plasma total carbon dioxide measurement (moles/volume)Ordered By: Kendra Persaud on 09-14-2021 CO2 [Moles/Vol] 23.7 mmol/L 22.0-30.0 [facility] Serum or plasma urea nitroge n measurement (mass/volume)Ordered By: Kendra Persaud on 09-14-2021 Urea nitrogen [Mass/Vol] 4 mg/dL 9-23 [facility] Specific gravity Auto test s trip (U) [Rel density]Ordered By: Kendra Persaud on 09-14-2021 Specific gravity (U) [Rel density] 1.004 1.001-1.030 [facility] Urine clarity by refractomet ry automatedOrdered By: Kendra Persaud on 09-14-2021 Clarity Refractometry automated (U) Clear Clear [facility] Urine glucose measurement by automated test strip (mass/volume)Ordered By: Kendra Persaud on 09-14-2021 Glucose Auto test strip (U) [Mass/Vol] Normal mg/dL Normal [facility] Urine hemoglobin detection b y automated test stripOrdered By: Kendra Persaud on 09-14-2021 Hemoglobin Auto test strip Ql (U) Negative Negative [facility] Urine leukocyte esterase det ection by automated test stripOrdered By: Kendra Persaud on 09-14-2021 Leukocyte esterase Auto test strip Ql (U) Negative Negative [facility] Urobilinogen Auto test strip (U) [Mass/Vol]Ordered By: Kendra Persaud on 09-14-2021 Urobilinogen (U) [Mass/Vol] Normal mg/dL Normal [facility] pH Auto test strip (U)Ordere d By: Kendra Persaud on 09-14-2021 pH (U) 6.5 [pH] 5.0-9.0 [facility] Basophils Auto (Bld) [#/Vol] Ordered By: Augustus Santiago on 07-04-2021 Basophils (Bld) [#/Vol] 0.1 10*3/uL 0.0-0.2 [facility] Basophils/100 WBC Auto (Bld) Ordered By: Augustus Santiago on 07-04-2021 Basophils/100 WBC (Bld) 0.9 % F [facility] Blood hemoglobin measurement (mass/volume)Ordered By: Augustus Santiago on 07-04-2021 Hemoglobin (Bld) [Mass/Vol] 10.2 g/dL 11.8-15.4 [facility] Blood leukocytes automated c ount (number/volume)Ordered By: Augustus Santiago on 07-04-2021 WBC (Bld) [#/Vol] 6.6 10*3/uL 4.5-11.0 [facility] CT biopsyOrdered By: Augustus powell on 07-04-2021 Transferrin [Mass/Vol] 360 mg/dL 180-380 [facility] Creatinine and Glomerular fi ltration rate.predicted panel (S/P/Bld)Ordered By: Augustus Santiago on 07-04-2021 Creatinine [Mass/Vol] 0.69 mg/dL 0.44-1.03 [facility] Eosinophils Auto (Bld) [#/Vo l]Ordered By: Augustus Santiago on 07-04-2021 Eosinophils (Bld) [#/Vol] 0.1 10*3/uL 0.0-0.45 [facility] Eosinophils/100 WBC Auto (Bl d)Ordered By: Augustus Santiago on 07-04-2021 Eosinophils/100 WBC (Bld) 1.2 % [facility] Erythrocyte distribution wid th Auto (RBC) [Ratio]Ordered By: Augustus Santiago on 07-04-2021 Erythrocyte distribution width (RBC) [Ratio] 17.2 % 11.9-15.3 [facility] Estimated glomerular filtrat ion rate (GFR) non- AmericanOrdered By: Augustus Santiago on 07-04-2021 GFR/1.73 sq M.predicted among non-blacks MDRD (S/P/Bld) [Vol rate/Area] > 60 mL/Min [facility] Hematocrit Auto (Bld) [Volum e fraction]Ordered By: Augustus Santiago on 07-04-2021 Hematocrit (Bld) [Volume fraction] 32.0 % 34.0-46.4 [facility] Iron [Mass/volume] in Serum or PlasmaOrdered By: Augustus Santiago on 07-04-2021 Iron [Mass/Vol] 10 ug/dL 40-150 [facility] Iron binding capacity [Mass/ volume] in Serum or PlasmaOrdered By: Augustus Santiago on 07-04-2021 Iron binding capacity [Mass/Vol] 504 ug/dL 255-450 [facility] Iron saturation [Mass Fracti on] in Serum or PlasmaOrdered By: Augustus Santiago on 07-04-2021 Iron saturation [Mass fraction] 1.0 % 20-50 [facility] Laboratory - Hematology and Cell countsOrdered By: Augustus Santiago on 07-04-2021 Nucleated RBC/100 WBC (Bld) [Ratio] 0.0 % 0-0.5 [facility] Lymphocytes Auto (Bld) [#/Vo l]Ordered By: Augustus Santiago on 07-04-2021 Lymphocytes (Bld) [#/Vol] 1.9 10*3/uL 1.00-4.8 [facility] Lymphocytes/100 WBC Auto (Bl d)Ordered By: Augustus Santiago on 07-04-2021 Lymphocytes/100 WBC (Bld) 28.4 % [facility] MCH Auto (RBC) [Entitic mass ]Ordered By: Augustus Santiago on 07-04-2021 MCH (RBC) [Entitic mass] 22.7 pg 24.7-34.3 [facility] MCHC Auto (RBC) [Mass/Vol]Or dered By: Augustus Santiago on 07-04-2021 MCHC (RBC) [Mass/Vol] 31.9 g/dL 32.0-35.0 [facility] MCV Auto (RBC) [Entitic vol] Ordered By: Augustus Santiago on 07-04-2021 MCV (RBC) [Entitic vol] 71.3 fL 80-100 F [facility] Monocytes Auto (Bld) [#/Vol] Ordered By: Augustus Santiago on 07-04-2021 Monocytes (Bld) [#/Vol] 0.5 10*3/uL 0.0-0.8 [facility] Monocytes/100 WBC Auto (Bld) Ordered By: Augustus Santiago on 07-04-2021 Monocytes/100 WBC (Bld) 7.6 % F [facility] Neutrophils Auto (Bld) [#/Vo l]Ordered By: Augustus Santiago on 07-04-2021 Neutrophils (Bld) [#/Vol] 4.1 10*3/uL 1.8-7.7 [facility] Neutrophils/100 WBC Auto (Bl d)Ordered By: Augustus Santiago on 07-04-2021 Neutrophils/100 WBC (Bld) 61.9 % [facility] No Panel InformationOrdered By: Augustus Santiago on 07-04-2021 D-Dimer Quantitative (PE/DVT) < 200 ng/mL 0-243 [facility] Comment on above: The reference range for [...] 60 mL/Min [facility] Comment on above: GFR estimated refere nce range: According to KDOQI guidelines, <60 ml/min/1.73m2 is sufficient to diagnose a patient with chronic kidney disease. Pharmacy Creatinine Clearance (Chem N/A [facility] Platelet mean volume Auto (B ld) [Entitic vol]Ordered By: Augustus Santiago on 07-04-2021 Platelet mean volume (Bld) [Entitic vol] 7.9 fL 6.3-10.7 [facility] Platelets Auto (Bld) [#/Vol] Ordered By: Augustus Santiago on 07-04-2021 Platelets (Bld) [#/Vol] 457 10*3/uL 150-450 [facility] RBC Auto (Bld) [#/Vol]Ordere d By: Augustus Santiago on 07-04-2021 RBC (Bld) [#/Vol] 4.48 10*6/uL 3.60-5.[address] [facility] Serum or plasma calcium donaldo urement (mass/volume)Ordered By: Augustus Santiago on 07-04-2021 Calcium [Mass/Vol] 8.9 mg/dL 8.2-10.2 [facility] Serum or plasma chloride claudia surement (moles/volume)Ordered By: Augustus Santiago on 07-04-2021 Chloride [Moles/Vol] 105 mmol/L 95-114 [facility] Serum or plasma glucose donaldo urement (mass/volume)Ordered By: Augustus Santiago on 07-04-2021 Glucose [Mass/Vol] 110 mg/dL 70-100 [facility] Comment on above: ADA recommended refe rence rangeRandom Glucose Reference Range is dependent on time and content of last meal. Glucose of more than 200 mg/dL in a nonstressed, ambulatory subject supports the diagnosis of Diabetes Mellitus. Serum or plasma potassium me asurement (moles/volume)Ordered By: Augustus Santiago on 07-04-2021 Potassium [Moles/Vol] 3.5 mmol/L 3.5-5.1 [facility] Serum or plasma sodium measu rement (moles/volume)Ordered By: Augustus Santiago on 07-04-2021 Sodium [Moles/Vol] 136 mmol/L 136-146 [facility] Serum or plasma total carbon dioxide measurement (moles/volume)Ordered By: Augustus Santiago on 07-04-2021 CO2 [Moles/Vol] 23.0 mmol/L 22.0-30.0 [facility] Serum or plasma urea nitroge n measurement (mass/volume)Ordered By: Augustus Santiago on 07-04-2021 Urea nitrogen [Mass/Vol] 5 mg/dL 9-23 [facility] Cardiac Stress Teston 2020 Cardiac Stress Test [address], [place] [address] TRANSTHORACIC ECHOCARDIOGRAM REPORT Patient Name: ANTONIA Alfredo Physician: [id number] Raphael Alas MD Study Date: 08/06/2020 Referring Physician: [id number] CANTU MRN/PID: [id number] PCP: Jennifer Duran Accession/Order#: [id number] Department Location: [facility] Date of : 1985 Fellow: Gender: F Nurse: Admit Date: Baggage Checker: Josephine Newton RDCS, T Height: 165.10 cm CC Report to: Weight: 88.00 kg Study Type: Echocardiogram BSA: 1.95 m2 Diagnosis/ICD: R06.00-Dyspnea, unspecified; R00.0-Tachycardia, unspecified Indication: Obesity, Family History of CAD Procedure/CPT: Echo Complete w Full [id number] Study Detail: The following Echo studies were [...] 0.9 m/s (0.6-0.9m/s) PV Max P.0 mmHg [id number] Raphael Alas MD Electronically signed on 08/07/2020 at 4:26:59 PM Final Normal [facility] Vital Signs Date Time Vital Sign Value Performing Clinician Facility 06-28-2024 01:00-0500 Diastolic blood pressure 134 mm[Hg] [employer] [facility] 06-28-2024 01:00-0500 Heart rate 119 /min [employer] [facility] 06-28-2024 01:00-0500 Mean blood pressure 142 mm[Hg] [facility] [employer] [facility] 06-28-2024 01:00-0500 SaO2% (BldA) [Mass fraction] 95 % Kaylinn Dokken [facility] 06-28-2024 01:00-0500 Systolic blood pressure 157 mm[Hg] Kaylinn Dokken [facility] 06-28-2024 00:00-0500 Diastolic blood pressure 98 mm[Hg] Kaylinn Dokken [facility] 06-28-2024 00:00-0500 Heart rate 137 /min Kaylinn Dokken [facility] 06-28-2024 00:00-0500 Mean blood pressure 121 mm[Hg] Kaylinn Dokken [facility] 06-28-2024 00:00-0500 Systolic blood pressure 168 mm[Hg] Kaylinn Dokken [facility] 06-27-2024 22:12-0500 Body temperature 97.34 [degF] Kaylinn Dokken [facility] 06-27-2024 22:12-0500 Diastolic blood pressure 85 mm[Hg] Kaylinn Dokken [facility] 06-27-2024 22:12-0500 Heart rate 125 /min Kaylinn Dokken [facility] 06-27-2024 22:12-0500 Respiratory rate 20 /min Kaylinn Dokken [facility] 06-27-2024 22:12-0500 SaO2% (BldA) [Mass fraction] 100 % Kaylinn Dokken [facility] 06-27-2024 22:12-0500 Systolic blood pressure 133 mm[Hg] Jordyn Willett [facility] 06-27-2024 15:15-0500 Diastolic blood pressure 85 mm[Hg] Randee Richardson MD Work Phone: [email or web address] 06-27-2024 15:15-0500 SaO2% (BldA) [Mass fraction] 97 % Randee Richardson MD Work Phone: [email or web address] 06-27-2024 15:15-0500 Systolic blood pressure 129 mm[Hg] Randee Richardson MD Work Phone: [email or web address] 06-27-2024 13:28-0500 Body mass index (BMI) [Ratio] 30.79 kg/m2 Randee Richardson MD Work Phone: [email or web address] 06-27-2024 13:28-0500 Body temperature 97.7 [degF] Randee Richardson MD Work Phone: [email or web address] 06-27-2024 13:28-0500 Body weight 83.92 kg Randee Richardson MD Work Phone: [email or web address] 06-27-2024 13:28-0500 Heart rate 103 /min Randee Richardson MD Work Phone: [email or web address] 06-27-2024 13:28-0500 Respiratory rate 16 /min Randee Richardson MD Work Phone: [email or web address] 06-25-2024 01:00-0500 Diastolic blood pressure 90 mm[Hg] Ritesh Ivana [facility] 06-25-2024 01:00-0500 Heart rate 128 /min Ritesh Ivana [facility] 06-25-2024 01:00-0500 Mean blood pressure 105 mm[Hg] Ritesh Ivana [facility] 06-25-2024 01:00-0500 SaO2% (BldA) [Mass fraction] 97 % Ritesh Ivana [facility] 06-25-2024 01:00-0500 Systolic blood pressure 135 mm[Hg] Ritesh Ivana [facility] 06-25-2024 00:30-0500 Diastolic blood pressure 85 mm[Hg] Ritesh Ivana [facility] 06-25-2024 00:30-0500 Heart rate 124 /min Ritesh Ivana [facility] 06-25-2024 00:30-0500 Mean blood pressure 96 mm[Hg] Ritesh Ivana [facility] 06-25-2024 00:30-0500 Respiratory rate 20 /min Ritesh Ivana [facility] 06-25-2024 00:30-0500 SaO2% (BldA) [Mass fraction] 100 % Ritesh Ivana [facility] 06-25-2024 00:30-0500 Systolic blood pressure 118 mm[Hg] Ritesh Ivana [facility] 06-24-2024 23:35-0500 Diastolic blood pressure 97 mm[Hg] Ritesh Ivana [facility] 06-24-2024 23:35-0500 Heart rate 121 /min Ritesh Ivana [facility] 06-24-2024 23:35-0500 Mean blood pressure 110 mm[Hg] Ritesh Ivana [facility] 06-24-2024 23:35-0500 SaO2% (BldA) [Mass fraction] 100 % Ritesh Ivana [facility] 06-24-2024 23:35-0500 Systolic blood pressure 136 mm[Hg] Ritesh Ivana [facility] 06-24-2024 19:30-0500 Body temperature 97.7 [degF] Ritesh Lynnner [facility] 06-24-2024 19:30-0500 Heart rate 147 /min Ritesh Ivana [facility] 04-03-2024 14:49-0400 Body height 165.1 cm [facility] 04-03-2024 14:49-0400 Body mass index (BMI) [Ratio] 31.62 kg/m2 [facility] 2 [facility] 04-03-2024 14:49-0400 Body weight 86.18 kg [facility] 2 [facility] 03-28-2024 11:02-0400 Body height 165.1 cm Adiel Aparicio MD Work Phone: [facility] 03-28-2024 11:02-0400 Body mass index (BMI) [Ratio] 32.98 kg/m2 Adiel Aparicio MD Work Phone: [facility] 03-28-2024 11:02-0400 Body weight 89.9 kg Adiel Aparicio MD Work Phone: [facility] 03-23-2024 12:03-0400 Body mass index (BMI) [Ratio] 32.5 kg/m2 [facility] 03-23-2024 12:03-0400 Body temperature 97.9 [degF] [facility] 03-23-2024 12:03-0400 Body weight 88.9 kg [facility] 03-23-2024 12:03-0400 Diastolic blood pressure 64 mm[Hg] [facility] 03-23-2024 12:03-0400 Heart rate 91 /min [facility] 03-23-2024 12:03-0400 SaO2% (BldA) [Mass fraction] 98 % [facility] 03-23-2024 12:03-0400 Systolic blood pressure 102 mm[Hg] [facility] 03-23-2024 08:40-0400 Body height 165.1 cm [facility] 03-03-2024 15:27-0400 Body temperature 98.71 [degF] Davi Pay DO Work Phone: [facility] 03-03-2024 15:27-0400 Diastolic blood pressure 84 mm[Hg] Davi Pay DO Work Phone: [employer] [facility] 03-03-2024 15:27-0400 Heart rate 115 /min Davi Pay DO Work Phone: [facility] [employer] [facility] 03-03-2024 15:27-0400 Respiratory rate 18 /min Davi Pay DO Work Phone: [facility] [employer] [facility] 03-03-2024 15:27-0400 SaO2% (BldA) [Mass fraction] 97 % Davi Pay DO Work Phone: [facility] [employer] 03-03-2024 15:27-0400 Systolic blood pressure 164 mm[Hg] Davi Pay DO Work Phone: [facility] [employer] [facility] 02-24-2024 20:29-0400 Body height 165.1 cm Ashley Delcid MD Work Phone: [facility] [employer] [facility] 02-24-2024 20:29-0400 Body temperature 98.01 [degF] Ashley Delcid MD Work Phone: [facility] [employer] [facility] 02-24-2024 20:29-0400 Diastolic blood pressure 72 mm[Hg] Ashley Delcid MD Work Phone: [employer] [facility] 02-24-2024 20:29-0400 Heart rate 94 /min Ashley Delcid MD Work Phone: [facility] 02-24-2024 20:29-0400 Respiratory rate 20 /min Ashley Delcid MD Work Phone: [facility] [employer] [facility] 02-24-2024 20:29-0400 SaO2% (BldA) [Mass fraction] 99 % Ashley Delcid MD Work Phone: [facility] 02-24-2024 20:29-0400 Systolic blood pressure 129 mm[Hg] Ashley Delcid MD Work Phone: [facility] 02-16-2024 16:47-0400 Diastolic blood pressure 68 mm[Hg] Jennifer Moore MD Work Phone: [facility] 02-16-2024 16:47-0400 Heart rate 99 /min Jennifer Moore MD Work Phone: [facility] 02-16-2024 16:47-0400 SaO2% (BldA) [Mass fraction] 96 % Jennifer Moore MD Work Phone: [facility] 02-16-2024 16:47-0400 Systolic blood pressure 115 mm[Hg] Jennifer Moore MD Work Phone: [facility] 02-16-2024 16:38-0400 Respiratory rate 18 /min Jennifer Moore MD Work Phone: [facility] 02-16-2024 13:28-0400 Body temperature 98.29 [degF] Jennifer Moore MD Work Phone: [facility] 02-13-2024 00:26-0400 Body temperature 98.24 [degF] Ritesh Ivana [facility] 02-13-2024 00:26-0400 Diastolic blood pressure 72 mm[Hg] Ritesh Ivana [facility] 02-13-2024 00:26-0400 Heart rate 86 /min Ritesh Ivana [facility] 02-13-2024 00:26-0400 Respiratory rate 16 /min Ritesh Ivana [facility] 02-13-2024 00:26-0400 SaO2% (BldA) [Mass fraction] 100 % Ritesh Ivana [facility] 02-13-2024 00:26-0400 Systolic blood pressure 109 mm[Hg] Ritesh Heath [facility] 01-22-2024 12:13-0400 Body height 165.1 cm Eren Camejo DO Work Phone: [facility] [employer] 01-22-2024 12:13-0400 Body mass index (BMI) [Ratio] 29.95 kg/m2 Eren Camejo DO Work Phone: [facility] [employer] 01-22-2024 12:13-0400 Body temperature 98.71 [degF] [facility] DO [facility] 01-22-2024 12:13-0400 Body weight 81.65 kg Eren Camejo DO Work Phone: [facility] [employer] 01-22-2024 12:13-0400 Diastolic blood pressure 92 mm[Hg] Eren Camejo DO Work Phone: [facility] [employer] 01-22-2024 12:13-0400 Heart rate 109 /min Eren Camejo DO Work Phone: [facility] [employer] 01-22-2024 12:13-0400 Respiratory rate 18 /min Eren Camejo DO Work Phone: [facility] [employer] 01-22-2024 12:13-0400 SaO2% (BldA) [Mass fraction] 100 % Eren Camejo DO Work Phone: [facility] [employer] 01-22-2024 12:13-0400 Systolic blood pressure 152 mm[Hg] Eren Camejo DO Work Phone: [facility] [employer] 01-19-2024 11:18-0400 Body height 165.1 cm DO Jennifer Duran Work Phone: [facility] 01-19-2024 11:18-0400 Body mass index (BMI) [Ratio] 31.9 kg/m2 DO Jennifer Duran Work Phone: [facility] 01-19-2024 11:18-0400 Body temperature 98.2 [degF] DO Jennifer Girvin Work Phone: [facility] 01-19-2024 11:18-0400 Body weight 87.08 kg DO Jennifer Girvin Work Phone: [facility] 01-19-2024 11:18-0400 Diastolic blood pressure 82 mm[Hg] DO Jennifer Girvin Work Phone: [facility] 01-19-2024 11:18-0400 Heart rate 102 /min DO Jennifer Girvin Work Phone: [facility] 01-19-2024 11:18-0400 Respiratory rate 18 /min DO Jennifer Girvin Work Phone: [facility] 01-19-2024 11:18-0400 SaO2% (BldA) [Mass fraction] 98 % DO Jennifer Girivelisse Work Phone: [facility] 01-19-2024 11:18-0400 Systolic blood pressure 122 mm[Hg] DO Jennifer Girivelisse Work Phone: [facility] 11-08-2023 14:03-0400 Body height 165.1 cm DO Jennifer Girivelisse Work Phone: [facility] 11-08-2023 14:03-0400 Body temperature 98.1 [degF] DO Jennifer Girivelisse Work Phone: [facility] 11-08-2023 14:03-0400 Body weight 82.85 kg DO Jennifer Girivelisse Work Phone: [facility] 11-08-2023 14:03-0400 Diastolic blood pressure 77 mm[Hg] DO Jennifer Girvin Work Phone: [facility] 11-08-2023 14:03-0400 Heart rate 86 /min DO Jennifer Girvin Work Phone: [facility] 11-08-2023 14:03-0400 Respiratory rate 16 /min DO Jennifer Girvin Work Phone: [facility] 11-08-2023 14:03-0400 SaO2% (BldA) [Mass fraction] 100 % DO Jennifer Duran Work Phone: [facility] 11-08-2023 14:03-0400 Systolic blood pressure 142 mm[Hg] DO Jennifer Duran Work Phone: [facility] 11-08-2023 11:56-0400 Body height 165.1 cm Eren Camejo DO Work Phone: [employer] 11-08-2023 11:56-0400 Body mass index (BMI) [Ratio] 30.45 kg/m2 Eren Camejo DO Work Phone: [facility] [employer] 11-08-2023 11:56-0400 Body temperature 97.81 [degF] Eren Camejo DO Work Phone: [employer] 11-08-2023 11:56-0400 Body weight 83.01 kg Eren Camejo DO Work Phone: [employer] 11-08-2023 11:56-0400 Diastolic blood pressure 86 mm[Hg] Eren Camejo DO Work Phone: [employer] 11-08-2023 11:56-0400 Heart rate 100 /min Eren Camejo DO Work Phone: [employer] 11-08-2023 11:56-0400 Respiratory rate 18 /min Eren Camejo DO Work Phone: [employer] 11-08-2023 11:56-0400 SaO2% (BldA) [Mass fraction] 99 % Eren Camejo DO Work Phone: [employer] 11-08-2023 11:56-0400 Systolic blood pressure 133 mm[Hg] Eren Camejo DO Work Phone: [employer] 09-30-2023 02:09-0400 Diastolic blood pressure 89 mm[Hg] Ritesh Heath [facility] 09-30-2023 02:09-0400 Heart rate 124 /min Ritesh Ivana [facility] 09-30-2023 02:09-0400 Mean blood pressure 109 mm[Hg] Ritesh Ivana [facility] 09-30-2023 02:09-0400 Respiratory rate 20 /min Ritesh Ivana [facility] 09-30-2023 02:09-0400 SaO2% (BldA) [Mass fraction] 98 % Ritesh Ivana [facility] 09-30-2023 02:09-0400 Systolic blood pressure 149 mm[Hg] Ritesh Ivana [facility] 09-30-2023 01:00-0400 Diastolic blood pressure 82 mm[Hg] Ritesh Ivana [facility] 09-30-2023 01:00-0400 Heart rate 118 /min Ritesh Ivana [facility] 09-30-2023 01:00-0400 Mean blood pressure 104 mm[Hg] Ritesh Ivana [facility] 09-30-2023 01:00-0400 SaO2% (BldA) [Mass fraction] 99 % Ritesh Ivana [facility] 09-30-2023 01:00-0400 Systolic blood pressure 147 mm[Hg] Ritesh Ivana [facility] 09-29-2023 23:40-0400 Body temperature 97.7 [degF] Ritesh Ivana [facility] 09-29-2023 23:40-0400 Diastolic blood pressure 92 mm[Hg] Ritesh Ivana [facility] 09-29-2023 23:40-0400 Heart rate 139 /min Ritesh Ivana [facility] 09-29-2023 23:40-0400 Respiratory rate 20 /min Ritesh Ivana [facility] 09-29-2023 23:40-0400 SaO2% (BldA) [Mass fraction] 100 % Ritesh Ivana [facility] 09-29-2023 23:40-0400 Systolic blood pressure 144 mm[Hg] Ritesh Ivana [facility] 09-26-2023 18:00-0400 Heart rate 119 /min Konstantin Warde [facility] 09-26-2023 18:00-0400 SaO2% (BldA) [Mass fraction] 96 % Konstantin Zohaib [facility] 09-26-2023 17:30-0400 Diastolic blood pressure 124 mm[Hg] Konstantin Zohaib [facility] 09-26-2023 17:30-0400 Heart rate 105 /min Konstantin Zohaib [facility] 09-26-2023 17:30-0400 Mean blood pressure 129 mm[Hg] Konstantin Zohaib [facility] 09-26-2023 17:30-0400 SaO2% (BldA) [Mass fraction] 100 % Konstantin Zohaib [facility] 09-26-2023 17:30-0400 Systolic blood pressure 139 mm[Hg] Konstantin Zohaib [facility] 09-26-2023 16:48-0400 Diastolic blood pressure 82 mm[Hg] Konstantin Zohaib [facility] 09-26-2023 16:48-0400 Heart rate 126 /min Konstantin Zohaib [facility] 09-26-2023 16:48-0400 Mean blood pressure 101 mm[Hg] Konstantin Warde [facility] 09-26-2023 16:48-0400 Respiratory rate 18 /min Konstantin Warde [facility] 09-26-2023 16:48-0400 SaO2% (BldA) [Mass fraction] 100 % Konstantin Zohaib [facility] 09-26-2023 16:48-0400 Systolic blood pressure 139 mm[Hg] Konstantin Zohaib [facility] 09-26-2023 16:30-0400 Diastolic blood pressure 96 mm[Hg] Konstantin Zohaib [facility] 09-26-2023 16:30-0400 Mean blood pressure 105 mm[Hg] Konstantin Warde [facility] 09-26-2023 16:30-0400 Respiratory rate 18 /min Konstantin Warde [facility] 09-26-2023 16:30-0400 Systolic blood pressure 122 mm[Hg] Konstantin Warde [facility] 09-26-2023 14:45-0400 Respiratory rate 18 /min Konstantin Warde [facility] 09-26-2023 14:13-0400 Body temperature 98.6 [degF] Konstantin Zohaib [facility] 07-31-2023 18:01-0500 Diastolic blood pressure 87 mm[Hg] Jignesh Dumont [facility] 07-31-2023 18:01-0500 Heart rate 121 /min Jignesh Dumont [facility] 07-31-2023 18:01-0500 Mean blood pressure 99 mm[Hg] Jignesh Tim [facility] 07-31-2023 18:01-0500 Respiratory rate 16 /min Jignesh Tim [facility] 07-31-2023 18:01-0500 SaO2% (BldA) [Mass fraction] 99 % Jignesh Tim [facility] 07-31-2023 18:01-0500 Systolic blood pressure 123 mm[Hg] Jignesh Tim [facility] 07-31-2023 17:00-0500 Diastolic blood pressure 77 mm[Hg] Jignesh Tim [facility] 07-31-2023 17:00-0500 Heart rate 96 /min Jignesh Tim [facility] 07-31-2023 17:00-0500 Mean blood pressure 92 mm[Hg] Jignesh Tim [facility] 07-31-2023 17:00-0500 Systolic blood pressure 122 mm[Hg] Jignesh Tim [facility] 07-31-2023 16:07-0500 Diastolic blood pressure 90 mm[Hg] Jignesh Tim [facility] 07-31-2023 16:07-0500 Heart rate 117 /min Jignesh Tim [facility] 07-31-2023 16:07-0500 Mean blood pressure 105 mm[Hg] Jignesh Tim [facility] 07-31-2023 16:07-0500 Respiratory rate 19 /min Jignesh Tim [facility] 07-31-2023 16:07-0500 SaO2% (BldA) [Mass fraction] 100 % Jignesh Tim [facility] 07-31-2023 16:07-0500 Systolic blood pressure 135 mm[Hg] Jignesh Dumont [facility] 07-31-2023 16:06-0500 Respiratory rate 18 /min Jignesh Dumont [facility] 07-31-2023 15:34-0500 Body temperature 97.88 [degF] Jignesh Dumont [facility] 07-31-2023 15:34-0500 Heart rate 136 /min Jignesh Dumont [facility] 07-31-2023 15:34-0500 Respiratory rate 18 /min Jignesh Dumont [facility] 07-19-2023 12:40-0500 Body height 165.1 cm Jennifer Duran Other [facility] [employer] Other 04-30-2023 18:19-0500 Diastolic blood pressure 82 mm[Hg] DO Jennifer Duran Work Phone: [facility] 04-30-2023 18:19-0500 Heart rate 128 /min DO Jennifer Duran Work Phone: [facility] 04-30-2023 18:19-0500 Respiratory rate 18 /min DO Jennifer Duran Work Phone: [facility] 04-30-2023 18:19-0500 SaO2% (BldA) [Mass fraction] 99 % DO Jennifer Duran Work Phone: [facility] 04-30-2023 18:19-0500 Systolic blood pressure 116 mm[Hg] DO Jennifer Duran Work Phone: [facility] [facility] 04-30-2023 16:43-0500 Body height 165.1 cm DO Jennifer Duran Work Phone: [facility] 04-30-2023 16:43-0500 Body temperature 98.1 [degF] DO Jennifer Duran Work Phone: [facility] 04-30-2023 16:43-0500 Body weight 62.3 kg DO Jennifer Duran Work Phone: [facility] 04-24-2023 15:51-0500 Diastolic blood pressure 81 mm[Hg] Jignesh Tim [facility] 04-24-2023 15:51-0500 Heart rate 98 /min Jignesh Tim [facility] 04-24-2023 15:51-0500 Mean blood pressure 94 mm[Hg] Jignesh Tim [facility] 04-24-2023 15:51-0500 Respiratory rate 17 /min Jignesh Tim [facility] 04-24-2023 15:51-0500 SaO2% (BldA) [Mass fraction] 99 % Jignesh Tim [facility] 04-24-2023 15:51-0500 Systolic blood pressure 120 mm[Hg] Jignesh Tim [facility] 04-24-2023 15:00-0500 Diastolic blood pressure 72 mm[Hg] Jignesh Tim [facility] 04-24-2023 15:00-0500 Heart rate 85 /min Jignesh Tim [facility] 04-24-2023 15:00-0500 Mean blood pressure 87 mm[Hg] Jignesh Tim [facility] 04-24-2023 15:00-0500 Respiratory rate 16 /min Jignesh Tim [facility] 04-24-2023 15:00-0500 SaO2% (BldA) [Mass fraction] 96 % Jignesh Tim [facility] 11-12-2023 15:00-0500 Systolic blood pressure 117 mm[Hg] Jignesh Dumont [facility] 04-24-2023 14:00-0500 Diastolic blood pressure 88 mm[Hg] Jignesh Tim [facility] 04-24-2023 14:00-0500 Heart rate 99 /min Jignesh Dumont [facility] 04-24-2023 14:00-0500 Mean blood pressure 100 mm[Hg] Jignesh Dumont [facility] 04-24-2023 14:00-0500 Respiratory rate 18 /min Jignesh Dumont [facility] 04-24-2023 14:00-0500 SaO2% (BldA) [Mass fraction] 97 % Jignesh Dumont [facility] 04-24-2023 14:00-0500 Systolic blood pressure 124 mm[Hg] Jignesh Dumont [facility] 04-24-2023 13:29-0500 Body temperature 99.14 [degF] Jignesh Dumont [facility] 04-24-2023 13:29-0500 Heart rate 118 /min Jignesh Dumont [facility] 04-03-2023 00:20-0400 Diastolic blood pressure 70 mm[Hg] DO Jennifer Duran Work Phone: [facility] 04-03-2023 00:20-0400 Heart rate 80 /min DO Jennifer Duran Work Phone: [facility] 04-03-2023 00:20-0400 SaO2% (BldA) [Mass fraction] 98 % DO Jennifer Duran Work Phone: [facility] 04-03-2023 00:20-0400 Systolic blood pressure 122 mm[Hg] DO Jennifer Duran Work Phone: [facility] 04-02-2023 21:48-0400 Diastolic blood pressure 75 mm[Hg] DO Jennifer Girivelisse Work Phone: [facility] 04-02-2023 21:48-0400 Heart rate 90 /min DO Jennifer Girvin Work Phone: [facility] 04-02-2023 21:48-0400 Respiratory rate 20 /min DO Jennifer Duran Work Phone: [facility] 04-02-2023 21:48-0400 SaO2% (BldA) [Mass fraction] 98 % DO Jennifer Duran Work Phone: [facility] 04-02-2023 21:48-0400 Systolic blood pressure 109 mm[Hg] DO Jennifer Girivelisse Work Phone: [facility] 04-02-2023 20:23-0400 Body height 165.1 cm DO Jennifer Druan Work Phone: [facility] 04-02-2023 20:23-0400 Body temperature 98.2 [degF] DO Jennifer Duran Work Phone: [facility] 04-02-2023 20:23-0400 Body weight 81.64 kg DO Jennifer Girivelisse Work Phone: [facility] 03-29-2023 16:11-0400 Body temperature 97.8 [degF] DO Jennifer Duran Work Phone: [facility] 03-29-2023 16:11-0400 Diastolic blood pressure 79 mm[Hg] DO Jennifer Girivelisse Work Phone: [facility] 03-29-2023 16:11-0400 Heart rate 104 /min DO Jennifer Girivelisse Work Phone: [facility] 03-29-2023 16:11-0400 Respiratory rate 16 /min DO Jennifer Girivelisse Work Phone: [facility] 03-29-2023 16:11-0400 SaO2% (BldA) [Mass fraction] 98 % DO Jennifer Duran Work Phone: [facility] 03-29-2023 16:11-0400 Systolic blood pressure 123 mm[Hg] DO Jnenifer Girivelisse Work Phone: [facility] 03-29-2023 06:35-0400 Body height 165.1 cm DO Jennifer Girivelisse Work Phone: [facility] 03-29-2023 06:35-0400 Body weight 87.5 kg DO Jennifer Girivelisse Work Phone: [facility] 03-29-2023 05:41-0400 Diastolic blood pressure 85 mm[Hg] DO Jennifer Duran Work Phone: [facility] 03-29-2023 05:41-0400 Heart rate 110 /min DO Jennifer Duran Work Phone: [facility] 03-29-2023 05:41-0400 Respiratory rate 18 /min DO Jennifer Duran Work Phone: [facility] 03-29-2023 05:41-0400 SaO2% (BldA) [Mass fraction] 100 % DO eJnnifer Duran Work Phone: [facility] 03-29-2023 05:41-0400 Systolic blood pressure 160 mm[Hg] DO Jennifer Duran Work Phone: [facility] 03-29-2023 01:39-0400 Body height 165.1 cm DO Jennifer Duran Work Phone: [facility] 03-29-2023 01:39-0400 Body temperature 97.2 [degF] DO Jennifer Girivelisse Work Phone: [facility] 03-29-2023 01:39-0400 Body weight 87 kg DO Jennifer Girivelisse Work Phone: [facility] 02-06-2023 04:00-0400 Diastolic blood pressure 74 mm[Hg] DO Jennifer Girivelisse Work Phone: [facility] 02-06-2023 04:00-0400 Heart rate 79 /min DO Jennifer Duran Work Phone: [facility] 02-06-2023 04:00-0400 Respiratory rate 15 /min DO Jennifer Duran Work Phone: [facility] 02-06-2023 04:00-0400 SaO2% (BldA) [Mass fraction] 99 % DO Jennifer Duran Work Phone: [facility] 02-06-2023 04:00-0400 Systolic blood pressure 119 mm[Hg] DO Jennifer Duran Work Phone: [facility] 02-05-2023 23:41-0400 Body height 165.1 cm DO Jennifer Duran Work Phone: [facility] 02-05-2023 23:41-0400 Body temperature 98 [degF] DO Jennifer Duran Work Phone: [facility] 02-05-2023 23:41-0400 Body weight 81.64 kg DO Jennifer Duran Work Phone: [facility] 01-12-2023 14:40-0400 Body height 165.1 cm Jennifer Duran Other [facility] [employer] Other 01-12-2023 14:40-0400 Body mass index (BMI) [Ratio] 33.44 kg/m2 Jennifer Druan Other [facility] Other 01-12-2023 14:40-0400 Body temperature 99.5 [degF] Jennifer Duran Other [facility] Other 01-12-2023 14:40-0400 Body weight 91.17 kg Jennifer Duran Other [facility] [employer] Other 01-12-2023 14:40-0400 Diastolic blood pressure 78 mm[Hg] Jennifer Kendallivelisse Other [facility] Other 01-12-2023 14:40-0400 Respiratory rate 18 /min Jennifer Duran Other [facility] Other 01-12-2023 14:40-0400 SaO2% (BldA) [Mass fraction] 97 % Jennifer Duran Other [facility] Other 01-12-2023 14:40-0400 Systolic blood pressure 110 mm[Hg] Jennifer Duran Other [facility] Other 10-11-2022 16:20-0400 Body height 165.1 cm Jennifer Duran Other [facility] Other 07-12-2022 16:20-0500 Body height 165.1 cm Jennifer Duran Other [facility] Other 07-12-2022 16:20-0500 Body mass index (BMI) [Ratio] 31.2 kg/m2 Jennifer Duran Other [facility] Other 07-12-2022 16:20-0500 Body temperature 97.2 [degF] Jennifer Duran Other [facility] Other 07-12-2022 16:20-0500 Body weight 85.05 kg Jennifer Duran Other [facility] Other 07-12-2022 16:20-0500 Diastolic blood pressure 74 mm[Hg] Jennifer Duran Other [facility] Other 07-12-2022 16:20-0500 Respiratory rate 18 /min Jennifer Duran Other [facility] Other 07-12-2022 16:20-0500 SaO2% (BldA) [Mass fraction] 99 % Jennifer Duran Other [facility] [employer] Other 07-12-2022 16:20-0500 Systolic blood pressure 106 mm[Hg] Jennifer Duran Other [facility] Other 04-28-2022 04:00-0500 Diastolic blood pressure 70 mm[Hg] DO Jennifer Duran Work Phone: [facility] 04-28-2022 04:00-0500 Heart rate 81 /min DO Jennifer Duran Work Phone: [facility] 04-28-2022 04:00-0500 SaO2% (BldA) [Mass fraction] 96 % DO Jennifer Duran Work Phone: [facility] 04-28-2022 04:00-0500 Systolic blood pressure 110 mm[Hg] DO Jennifer Duran Work Phone: [facility] 04-28-2022 03:56-0500 Body height 165.1 cm DO Jennifer Duran Work Phone: [facility] 04-28-2022 03:56-0500 Body weight 80 kg DO Jennifer Duran Work Phone: [facility] 04-28-2022 03:56-0500 Respiratory rate 18 /min DO Jennifer Duran Work Phone: [facility] 04-28-2022 00:13-0500 Body temperature 97.2 [degF] DO Jennifer Duran Work Phone: [facility] 04-12-2022 15:40-0400 Body height 165.1 cm Jennifer Duran Other [facility] Other 04-12-2022 15:40-0400 Body mass index (BMI) [Ratio] 30.37 kg/m2 Jennifer Duran Other [facility] Other 04-12-2022 15:40-0400 Body temperature 98.8 [degF] Jennifer Duran Other [facility] Other 04-12-2022 15:40-0400 Body weight 82.78 kg Jennifer Duran Other [facility] Other 04-12-2022 15:40-0400 Diastolic blood pressure 76 mm[Hg] Jennifer Duran Other [facility] Other 04-12-2022 15:40-0400 Respiratory rate 18 /min Jennifer Duran Other [facility] Other 04-12-2022 15:40-0400 SaO2% (BldA) [Mass fraction] 98 % Jennifer Duran Other [facility] Other 04-12-2022 15:40-0400 Systolic blood pressure 110 mm[Hg] Jennifer Duran Other [facility] Other 04-09-2022 13:32-0400 Body temperature 97.59 [degF] Chair Lei Work Phone: [facility] 04-09-2022 13:32-0400 Diastolic blood pressure 64 mm[Hg] Chair Driscoll Work Phone: [facility] 04-09-2022 13:32-0400 Heart rate 114 /min Chair Driscoll Work Phone: [facility] 04-09-2022 13:32-0400 Respiratory rate 18 /min Chair Driscoll Work Phone: [facility] 04-09-2022 13:32-0400 SaO2% (BldA) [Mass fraction] 97 % Chair Driscoll Work Phone: [facility] 04-09-2022 13:32-0400 Systolic blood pressure 116 mm[Hg] Chair Lei Work Phone: [facility] 03-26-2022 13:54-0400 Body temperature 97.9 [degF] Chair Driscoll Work Phone: [facility] 03-26-2022 13:54-0400 Diastolic blood pressure 75 mm[Hg] Chair Driscoll Work Phone: [facility] 03-26-2022 13:54-0400 Heart rate 82 /min Chair Driscoll Work Phone: [facility] 03-26-2022 13:54-0400 Respiratory rate 18 /min Chair Lei Work Phone: [facility] 03-26-2022 13:54-0400 SaO2% (BldA) [Mass fraction] 100 % Chair Driscoll Work Phone: [facility] 03-26-2022 13:54-0400 Systolic blood pressure 106 mm[Hg] Chair Driscoll Work Phone: [facility] 03-10-2022 13:54-0400 Body height 165.1 cm Madyson Ni APRN.TOE CLOSING MACHINE TENDER Work Phone: [facility] 03-10-2022 13:54-0400 Body temperature 97.9 [degF] Madyson Ni APRN.TOE CLOSING MACHINE TENDER Work Phone: [facility] 03-10-2022 13:54-0400 Body weight 83.37 kg Madyson Ni APRN.TOE CLOSING MACHINE TENDER Work Phone: [facility] 03-10-2022 13:54-0400 Diastolic blood pressure 75 mm[Hg] Madyson Ni APRN.TOE CLOSING MACHINE TENDER Work Phone: [facility] 03-10-2022 13:54-0400 Heart rate 95 /min Madyson Ni APRN.TOE CLOSING MACHINE TENDER Work Phone: [facility] 03-10-2022 13:54-0400 Respiratory rate 16 /min Madyson Ni APRN.TOE CLOSING MACHINE TENDER Work Phone: [facility] 03-10-2022 13:54-0400 SaO2% (BldA) [Mass fraction] 100 % Madyson Ni LEAD BURNER APPRENTICE.TOE CLOSING MACHINE TENDER Work Phone: [facility] 03-10-2022 13:54-0400 Systolic blood pressure 130 mm[Hg] Madyson Ni LEAD BURNER APPRENTICE.TOE CLOSING MACHINE TENDER Work Phone: [facility] 12-04-2021 12:49-0400 Blood Pressure Location Yamilka Orzech [facility] 12-04-2021 12:49-0400 Body temperature 98.42 [degF] Yamilka Orzech [facility] 12-04-2021 12:49-0400 Diastolic blood pressure 82 mm[Hg] Yamilka Orzech [facility] 12-04-2021 12:49-0400 Heart rate 110 /min Yamilka Orzech [facility] 12-04-2021 12:49-0400 SaO2% (BldA) [Mass fraction] 99 % Yamilka Orzech [facility] 12-04-2021 12:49-0400 Systolic blood pressure 126 mm[Hg] Yamilka Orzech [facility] 10-16-2021 09:10-0400 Body height 165.1 cm Jennifer Duran Other [facility] Other 09-14-2021 19:31-0400 Diastolic blood pressure 82 mm[Hg] DO Jennifer Duran Work Phone: [facility] 09-14-2021 19:31-0400 Heart rate 87 /min DO Jennifer Duran Work Phone: [facility] 09-14-2021 19:31-0400 Respiratory rate 18 /min DO Jennifer Duran Work Phone: [facility] 09-14-2021 19:31-0400 SaO2% (BldA) [Mass fraction] 99 % DO Jennifer Duran Work Phone: [facility] 09-14-2021 19:31-0400 Systolic blood pressure 126 mm[Hg] DO Jennifer Duran Work Phone: [facility] 09-14-2021 14:45-0400 Body height 165.1 cm DO Jennifer Duran Work Phone: [facility] 09-14-2021 14:45-0400 Body mass index (BMI) [Ratio] 30.7 kg/m2 DO Jennifer Duran Work Phone: [facility] 09-14-2021 14:45-0400 Body temperature 98 [degF] DO Jennifer Duran Work Phone: [facility] 09-14-2021 14:45-0400 Body weight 83.91 kg DO Jennifer Duran Work Phone: [facility] 04-21-2021 16:20-0500 Body height 165.1 cm Jennifer Duran Other [facility] [employer] Other 04-21-2021 16:20-0500 Body mass index (BMI) [Ratio] 32.28 kg/m2 Jennifer Duran Other [facility] [employer] Other 04-21-2021 16:20-0500 Body temperature 98.3 [degF] Jennifer Duran Other [facility] [employer] Other 04-21-2021 16:20-0500 Body weight 88 kg Jennifer Duran Other [facility] [employer] Other 04-21-2021 16:20-0500 Diastolic blood pressure 82 mm[Hg] Jennifer Duran Other [facility] Other 04-21-2021 16:20-0500 SaO2% (BldA) [Mass fraction] 98 % Jennifer Duran Other [facility] Other 04-21-2021 16:20-0500 Systolic blood pressure 124 mm[Hg] Jennifer Duran Other [employer] Other Encounters Encounter Date Encounter Type Care Provider Facility Start: 06-27-2024 End: 06-28-2024 Emergency department patient visit DO Jordyn Chi randygianna Facility:[facility] Start: 06-27-2024 End: 06-27-2024 Emergency department patient visit Randee Richardson MD Work Phone: [facility] Emergency Department Comment on above: Abdominal pain, righ t lower quadrant (Primary Dx) Start: 06-24-2024 End: 06-25-2024 Emergency department patient visit Ritesh DebbieEbenezer Heath [facility] Start: 06-11-2024 Emergency department patient visit None Provider Facility:[facility] Start: 06-11-2024 End: 06-11-2024 Telephone encounter Kendra BACON Work Phone: [facility], A Department of [facility] Comment on above: Appointment Start: 06-11-2024 End: 06-11-2024 ambulatory ROBBIE ARRIAZA [facility] Start: 06-10-2024 End: 06-10-2024 ambulatory NO PCP NO PCP [facility] Start: 06-09-2024 End: 06-10-2024 Emergency department patient visit NO PCP NO PCP [facility] Start: 06-09-2024 End: 06-09-2024 [facility] Comment on above: abnormal CT Post-op Problem; Abd ominal Pain Start: 06-08-2024 Emergency department patient visit None Provider Facility:[facility] Start: 06-05-2024 End: 06-05-2024 Emergency department patient visit NO PCP NO PCP [facility] Start: 05-27-2024 End: 05-28-2024 Emergency department patient visit RO[facility] Start: 04-09-2024 End: 04-10-2024 Salvador Stewart RN [facility] Comment on above: Endometriosis Start: 04-06-2024 End: 04-06-2024 Evaluation and management of inpatient NO PCP NO PCP [facility] Start: 04-05-2024 End: 04-05-2024 Emergency department patient visit NO PCP NO PCP [facility] Start: 04-03-2024 End: 04-03-2024 Admission to [facility] Phone Call Provider 2 [place] [facility] Start: 04-03-2024 End: 04-03-2024 Evaluation and management of inpatient NO PCP NO PCP [facility] Start: 03-30-2024 Patient encounter status Adiel Aparicio MD Work Phone: [facility] Start: 03-28-2024 End: 03-28-2024 Office outpatient visit 40 minutes Adiel Aparicio MD Work Phone: [facility] Comment on above: Endometriosis (Prima ry Dx); Preop testing Start: 03-28-2024 End: 03-28-2024 Patient encounter status Adiel Aparicio MD Work Phone: [facility] Start: 03-28-2024 Encounter for other preprocedural examination ADIEL APARICIO [facility] Start: 03-28-2024 End: 03-28-2024 Orders Only Adiel Aparicio MD Work Phone: [facility] Comment on above: Endometriosis (Prima ry Dx); Preop testing Start: 03-23-2024 End: 03-23-2024 [facility] Work Phone: Start: 03-23-2024 End: 03-23-2024 Patient encounter procedure [facility] Work Phone: Start: 03-07-2024 End: 03-07-2024 Emergency department patient visit NO PCP NO PCP [facility] Start: 03-03-2024 End: 03-03-2024 Emergency department patient visit Davi Marie DO Work Phone: [facility] Start: 02-24-2024 End: 02-24-2024 Emergency department patient visit Ashley Delcid MD Work Phone: [facility] Start: 02-16-2024 End: 02-16-2024 Emergency department patient visit Jennifer Moore MD Work Phone: [facility] Start: 02-13-2024 End: 02-13-2024 Emergency department patient visit Ritesh Heath [facility] Start: 01-27-2024 End: 01-28-2024 [facility] Start: 01-27-2024 End: 01-27-2024 Emergency department patient visit NO PCP NO PCP [facility] Start: 01-22-2024 End: 01-22-2024 Emergency department patient visit Eren Camejo DO Work Phone: [facility] Comment on above: Cyst of left ovary ( Primary Dx) Start: 01-19-2024 End: 01-19-2024 ambulatory DO Jennifer Duran Work Phone: [facility] Work Phone: Start: 01-19-2024 End: 01-19-2024 Patient encounter procedure DO Jennifer Duran Work Phone: [facility] Work Phone: Start: 12-07-2023 ambulatory DO Jennifer roberts Work Phone: [facility] Work Phone: Start: 12-07-2023 Non-patient / Non-visit DO Ponce connie Wilber Work Phone: [facility] Work Phone: Start: 11-25-2023 End: 11-25-2023 Patient encounter procedure DO Jennifer Duran Work Phone: [facility] [place] Work Phone: Start: 11-25-2023 End: 11-25-2023 ambulatory DO Jennifer Duran Work Phone: [facility] Work Phone: Start: 11-23-2023 End: 11-23-2023 ambulatory [facility] Start: 11-09-2023 End: 11-09-2023 ambulatory [facility] Start: 11-08-2023 End: 11-08-2023 Emergency department patient visit DO Jennifer Duran Work Phone: [facility]gency [facility] Work Phone: Start: 11-08-2023 End: 11-08-2023 Emergency department patient visit Eren Camejo DO Work Phone: [facility] Comment on above: Toothache (Primary D x) Start: 10-25-2023 End: 10-26-2023 Emergency department patient visit [facility] Start: 10-25-2023 End: 10-26-2023 Emergency department patient visit RED[facility] Dottie [facility] Start: 10-25-2023 End: 10-25-2023 Emergency department patient visit NO PCP NO PCP [facility] Start: 10-25-2023 End: 10-26-2023 Emergency department patient visit [facility] Start: 10-19-2023 End: 10-19-2023 ambulatory TARUN BRADEN Not Available Start: 10-18-2023 End: 10-18-2023 ambulatory [facility] Work Phone: Start: 10-18-2023 End: 10-18-2023 Patient encounter procedure [facility] Work Phone: Start: 09-29-2023 End: 09-30-2023 Emergency department patient visit Ritesh LewisEbenezer Ivana [facility] Start: 09-26-2023 End: 09-26-2023 Emergency department patient visit Konstantin Penny [facility] Start: 09-06-2023 End: 09-06-2023 Emergency department patient visit [facility] Start: 07-31-2023 End: 07-31-2023 Emergency department patient visit Jignesh Dumont [facility] Start: 07-28-2023 End: 07-28-2023 ambulatory PHYSICIAN NO [facility] Work Phone: Start: 07-28-2023 End: 07-28-2023 Patient encounter procedure PHYSICIAN NO [facility] Work Phone: Start: 07-19-2023 End: 07-19-2023 ambulatory Jennifer Duran Other [facility] Other Start: 07-19-2023 Telephone encounter Jennifer Duran [facility] Start: 06-22-2023 End: 06-23-2023 Emergency department patient visit EVGENY SEN MD Facility:[facility] Start: 06-07-2023 End: 06-07-2023 ambulatory Jennifer Duran Other [facility] Other Start: 06-07-2023 Telephone encounter Jennifer Duran [facility] Start: 05-30-2023 End: 05-30-2023 Emergency department patient visit JACY Leos LES [facility] Start: 05-16-2023 End: 05-16-2023 ambulatory Jennifer Duran Other [facility] Other Start: 05-16-2023 Telephone encounter Jennifer Duran [facility] Start: 04-30-2023 End: 04-30-2023 Emergency department patient visit DO Jennifer Duran Work Phone: [facility]-Emergency Room Work Phone: Start: 04-24-2023 End: 04-24-2023 Emergency department patient visit Jignesh Dumont [facility] Start: 04-18-2023 End: 04-18-2023 ambulatory Jennifer Duran Other [facility] Other Start: 04-18-2023 Telephone encounter Jennifer Duran [facility] Start: 04-11-2023 End: 04-11-2023 ambulatory Jennifer Duran Other [facility] Other Start: 04-11-2023 Telephone encounter Jennifer Duran [facility] Start: 04-04-2023 End: 04-04-2023 ambulatory Jennifer Duran Other [facility] Other Start: 04-04-2023 Telephone encounter Jennifer Duran [facility] Start: 04-02-2023 End: 04-03-2023 Emergency department patient visit DO Jennifer Duran Work Phone: [facility]-Emergency Room Work Phone: Start: 04-01-2023 End: 04-01-2023 ambulatory Jennifer Duran Other [facility] Other Start: 04-01-2023 Telephone encounter Jennifer Duran [facility] Start: 03-29-2023 Telephone encounter Jennifer Duran [facility] Start: 03-29-2023 End: 03-29-2023 Evaluation and management of inpatient DO Jennifer Duran Work Phone: [facility] [place] [facility] Work Phone: Start: 03-29-2023 End: 03-29-2023 observation encounter DO Jennifer Duran Work Phone: [facility] Work Phone: Start: 03-29-2023 End: 03-29-2023 ambulatory Jennifer Duran [facility] Other Start: 03-13-2023 End: 03-13-2023 ambulatory DO Jennifer Duran Work Phone: [facility] Work Phone: Start: 03-13-2023 End: 03-13-2023 Patient encounter procedure DO Jennifer Duran Work Phone: [facility]-Flu Vaccine Start: 03-02-2023 End: 03-02-2023 ambulatory Jennifer Duran Other [facility] Other Start: 03-02-2023 Telephone encounter Jennifer Duran [facility] Start: 02-05-2023 End: 02-06-2023 Emergency department patient visit DO Jennifer Wilber Work Phone: [facility]Emergency Room Work Phone: Start: 01-12-2023 End: 01-12-2023 ambulatory Jennifer Duran Other [facility] Other Start: 01-12-2023 Office outpatient vi sit 15 minutes Jennifer Duran [facility] Start: 12-09-2022 End: 12-09-2022 ambulatory Jennifer uDran Other [facility] Other Start: 12-09-2022 Telephone encounter Jennifer Duran [facility] Start: 10-11-2022 End: 10-11-2022 ambulatory Jennifer Duran Other [facility] Other Start: 10-11-2022 Telephone encounter Jennifer Wilber [facility] Start: 09-22-2022 End: 09-22-2022 ambulatory Jennifer Kendallivelisse Other [facility] Other Start: 09-22-2022 Telephone encounter Jennifer Duran [facility] Start: 07-28-2022 End: 07-28-2022 ambulatory BELKIS SANDOVAL Facility:[facility] Start: 07-12-2022 End: 07-12-2022 ambulatory Jennifer Duran Other [facility] Other Start: 07-12-2022 Office outpatient vi sit 15 minutes Jennifer Duran [facility] Start: 07-12-2022 Telephone encounter Jennifer Duran [facility] Start: 06-02-2022 End: 06-02-2022 ambulatory Jennifer Kendallivelisse Other [facility] Other Start: 06-02-2022 Telephone encounter Jennifer Wilber [facility] Start: 05-04-2022 End: 05-04-2022 ambulatory Jennifer Kendallivelisse Other [facility] Other Start: 05-04-2022 Telephone encounter Jennifer Duran [facility] Start: 04-30-2022 Telephone encounter Madyson arechiga APRN.TOE CLOSING MACHINE TENDER Work Phone: Hematology/Oncology Comment on above: Lab Orders Start: 04-28-2022 Evaluation and management of inpatient DO Jennifer Duran Work Phone: [facility] [place] Start: 04-28-2022 observation encounter DO Jennifer Enochivelisse Work Phone: [facility] Work Phone: Start: 04-12-2022 End: 04-12-2022 ambulatory Jennifer Duran Other [facility] Other Start: 04-12-2022 Office outpatient vi sit 15 minutes Jennifer Duran [facility] Start: 04-12-2022 Telephone encounter Jennifer Duran [facility] Start: 04-09-2022 End: 04-10-2022 ambulatory Stephenie Suh 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 Arts [employer] Medicine Comment on above: Art Therapy Iron deficiency anem ia due to chronic blood loss (Primary Dx); Malabsorption of iron; Cyst of left ovary Start: 03-26-2022 End: 03-27-2022 ambulatory MADYSON NI Facility:[facility] Start: 03-26-2022 End: 03-26-2022 ambulatory Chair Anton España Work Phone: Hematology/Oncology Comment on above: Iron deficiency anem ia due to chronic blood loss (Primary Dx); Malabsorption of iron; Cyst of left ovary Start: 03-15-2022 Telephone encounter Sharon Saavedra [facility] ematology/Oncology Comment on above: Social Work Services Start: 03-10-2022 End: 03-11-2022 ambulatory Madyson Ni LEAD BURNER APPRENTICE.TOE CLOSING MACHINE TENDER Work Phone: Hematology/Oncology Comment on above: Iron deficiency anem ia due to chronic blood loss (Primary Dx); Malabsorption of iron Start: 03-10-2022 End: 03-10-2022 Patient encounter procedure Madyson Ni APRN.TOE CLOSING MACHINE TENDER Work Phone: [facility] Start: 02-18-2022 Telephone encounter Madyson arechiga LEAD BURNER APPRENTICE.TOE CLOSING MACHINE TENDER Work Phone: Hematology/Oncology Comment on above: Lab Orders Start: 02-16-2022 End: 02-16-2022 ambulatory Jennifer Duran Other [facility] Other Start: 02-16-2022 Telephone encounter Jennifer Duran [facility] Start: 02-12-2022 End: 02-12-2022 Patient encounter procedure DO Jennifer Duran Work Phone: [facility]-Lab Main [place] Start: 01-07-2022 End: 01-07-2022 ambulatory Jennifer Duran Other [facility] Other Start: 01-07-2022 Telephone encounter Jennifer Duran [facility] Start: 12-04-2021 End: 12-04-2021 Patient encounter procedure Yamlika X Bj [facility] Start: 10-29-2021 End: 10-29-2021 ambulatory Jennifer Duran Other [facility] Other Start: 10-29-2021 Telephone encounter Jennifer Duran [facility] Start: 10-16-2021 End: 10-16-2021 ambulatory Jennifer Duran Other [facility] Other Start: 10-16-2021 Office outpatient vi sit 15 minutes Jennifer Duran [facility] Start: 09-21-2021 End: 09-21-2021 ambulatory Jennifer Duran Other [facility] Other Start: 09-21-2021 Telephone encounter Jennifer Duran [facility] Start: 09-14-2021 End: 09-14-2021 Emergency department patient visit DO Jennifer Duran Work Phone: [facility]Emergency Room Start: 08-18-2021 End: 08-18-2021 ambulatory Jennifer Duran Other [facility] Other Start: 08-18-2021 Telephone encounter Jennifer Duran [facility] Start: 08-11-2021 End: 08-11-2021 ambulatory Jennifer Duran Other [facility] Other Start: 08-11-2021 Telephone encounter Jennifer Duran [facility] Start: 08-03-2021 End: 08-03-2021 ambulatory Jennifer Duran Other [facility] Other Start: 08-03-2021 Telephone encounter Jennifer Duran [facility] Start: 07-04-2021 End: 07-04-2021 Patient encounter procedure DO Jennifer Duran Work Phone: [facility] Main [place] Start: 06-04-2021 End: 06-04-2021 ambulatory Jennifer Duran Other [facility] Other Start: 06-04-2021 Telephone encounter Jennifer Duran [facility] Start: 05-18-2021 End: 05-18-2021 ambulatory Jennifer Duran Other [facility] Other Start: 05-18-2021 Telephone encounter Jennifer Duran [facility] Start: 04-21-2021 End: 04-21-2021 ambulatory Jennifer Duran Other [facility] Other Start: 04-21-2021 Encounter for genera l adult medical examination without abnormal findings Jennifer Duran [facility] Start: 04-21-2021 Periodic preventive med est patient 18-39 yrs Jennifer Wilber [facility] Procedures Date Procedure Procedure Detail [...] Adult BMI Screening Adult BMI Screen ing [facility] Start: 06-09-2025 Adult BMI Screening Adult BMI Screen ing [facility] Start: 06-09-2025 Tobacco Screening Tobacco Screening [facility] Start: 04-06-2025 Adult BMI Screening Adult BMI Screen ing [facility] Start: 04-06-2025 Tobacco Screening Tobacco Screening [facility] Start: 04-03-2025 Adult BMI Screening Adult BMI Screen ing [facility] Start: 04-03-2025 Tobacco Screening Tobacco Screening [facility] Start: 03-28-2025 Adult BMI Screening Adult BMI Screen ing [facility] Start: 03-07-2025 Adult BMI Screening Adult BMI Screen ing [facility] Start: 03-07-2025 Tobacco Screening Tobacco Screening [facility] Start: 11-25-2024 Screening for malign ant neoplasm of cervix Pap Smear [facility] Start: 04-20-2024 End: 04-20-2024 Patient encounter procedure 04/20/2024 1:30 PM EST Office Visit [facility] [address] [place] [address] Shanae Frankel PA [address] [place] [address] [facility] Start: 04-06-2024 End: 04-06-2024 Admission to same day surgery center [facility] - Surgery Comment on above: DAVINCI HYSTERECTOMY SALPINGECTOMY DAVINCI DV5 SALPINGO OOPHORECTOMY Start: 04-06-2024 End: 04-06-2024 DAVINCI DV5 SALPINGO OOPHORECTOMY DAVINCI DV5 SALPINGO OOPHORECTOMY endometriosis /pelvic pain 04/06/2024 11:00 AM EDT [facility] Start: 04-06-2024 End: 04-06-2024 DAVINCI HYSTERECTOMY SALPINGECTOMY DAVINCI HYSTERECTOMY SALPINGECTOMY endometriosis /pelvic pain 04/06/2024 11:00 AM EDT [facility] Start: 04-06-2024 End: 04-06-2024 Laparoscopy w/rmvl adnexal structures [facility] Start: 04-06-2024 Subsequent hospital visit by physician 04/06/2024 11:00 AM EDT Hospital Encounter [facility] [place] [id number] Adiel Aparicio MD [address] [place] [address], [address] [place] [address] [facility] Start: 04-03-2024 End: 04-03-2024 Admission to establishment 04/03/2024 3:45 PM EDT Support Visit [facility] On [address] [address] [facility] Start: 02-12-2024 COVID-19 VACCINE ( season) COVID-19 VACCINE ( season) [facility] Start: 02-12-2024 COVID-19 Vaccine ( season) COVID-19 Vaccine ( season) [facility] Start: 02-12-2024 Influenza vaccination [facility] Start: 01-12-2024 Influenza vaccination Flu vaccine (# 1) [facility] Start: 12-07-2023 Patient referral [facility] Work Phone: Start: 03-30-2023 Comprehensive metabo lic 2000 panel - Serum or Plasma [facility] Start: 03-30-2023 [facility] Start: 03-29-2023 [facility] Start: 03-29-2023 Referral to glove sewer [facility] Start: 03-29-2023 Hospital admission [facility] Start: 03-29-2023 [facility] Start: 03-29-2023 Computed tomography of abdomen and pelvis with contrast CT abdomen pelvis w con [facility] Start: 03-29-2023 CT Abdomen and Pelvi s W contrast IV [facility] Start: 03-29-2023 Transvaginal echography US transvagi nal [facility] Start: 03-29-2023 US Pelvis transvaginal [facility] Start: 03-29-2023 Pelvic echography US pelvic complete [facility] Start: 03-29-2023 US Pelvis [facility] Start: 02-11-2023 COVID-19 Vaccine () COVID-19 Vaccine () [facility] Start: 02-06-2023 Pelvic echography US pelvic complete [facility] Start: 02-06-2023 US Pelvis [facility] Start: 02-06-2023 Transvaginal echography US transvagi [facility] Start: 02-06-2023 US Pelvis transvaginal [facility] Start: 02-05-2023 Computed tomography of abdomen and pelvis with contrast CT abdomen pelvis w con [facility] Start: 02-05-2023 CT Abdomen and Pelvi s W contrast IV [facility] Start: 05-05-2022 End: 07-05-2022 CBC W Auto Differential panel - Blood CBC + DIFF Lab Routine Iron deficiency anemia due to chronic blood loss Malabsorption of iron Expected: 05/05/2022, Expires: 07/05/2022 [facility] Work Phone: Comment on above: Expected: 05/05/2022 , Expires: 07/05/2022 Start: 05-03-2022 End: 07-03-2022 Comprehensive metabolic 2000 panel - Serum or Plasma COMP METABOLIC PANEL Lab Routine Iron deficiency anemia due to chronic blood loss Expected: 05/03/2022, Expires: 07/03/2022 [facility] Work Phone: Comment on above: Expected: 05/03/2022 , Expires: 07/03/2022 Start: 04-28-2022 Pelvic echography US pelvic complete [facility] Start: 04-28-2022 US Pelvis [facility] Start: 04-28-2022 CT Abdomen and Pelvi s WO contrast [facility] Start: 04-28-2022 CT of abdomen and pe lvis without contrast CT abdomen pelvis wo con [facility] Start: 04-28-2022 Transvaginal echography US transvagi nal [facility] Start: 04-28-2022 US Pelvis transvaginal [facility] Start: 02-23-2022 End: 02-20-2023 CBC W Auto Differential panel - Blood CBC + DIFF Lab Routine Iron deficiency anemia due to chronic blood loss Expected: 02/23/2022 (Approximate), Expires: 02/20/2023 [facility] Work Phone: Comment on above: Expected: 02/23/2022 (Approximate), Expires: 02/20/2023 Start: 02-23-2022 End: 02-20-2023 Cobalamin (Vitamin B12) [Mass/volume] in Serum or Plasma VITAMIN B12 BLOOD Lab Routine Iron deficiency anemia due to chronic blood loss Expected: 02/23/2022 (Approximate), Expires: 02/20/2023 [facility] Work Phone: Comment on above: Expected: 02/23/2022 (Approximate), Expires: 02/20/2023 Start: 02-23-2022 End: 02-20-2023 Comprehensive metabolic 2000 panel - Serum or Plasma COMP METABOLIC PANEL Lab Routine Iron deficiency anemia due to chronic blood loss Expected: 02/23/2022 (Approximate), Expires: 02/20/2023 [facility] Work Phone: Comment on above: Expected: 02/23/2022 (Approximate), Expires: 02/20/2023 Start: 02-23-2022 End: 02-20-2023 Ferritin [Mass/volume] in Serum or Plasma FERRITIN BLD Lab Routine Iron deficiency anemia due to chronic blood loss Expected: 02/23/2022 (Approximate), Expires: 02/20/2023 [facility] Work Phone: Comment on above: Expected: 02/23/2022 (Approximate), Expires: 02/20/2023 Start: 02-23-2022 End: 02-20-2023 Folate [Mass/volume] in Serum or Plasma FOLATE SERUM Lab Routine Iron deficiency anemia due to chronic blood loss Expected: 02/23/2022 (Approximate), Expires: 02/20/2023 [facility] Work Phone: Comment on above: Expected: 02/23/2022 (Approximate), Expires: 02/20/2023 Start: 02-23-2022 End: 02-20-2023 Iron and Iron binding capacity panel - Serum or Plasma IRON + TIBC Lab Routine Iron deficiency anemia due to chronic blood loss Expected: 02/23/2022 (Approximate), Expires: 02/20/2023 [facility] Work Phone: Comment on above: Expected: 02/23/2022 (Approximate), Expires: 02/20/2023 Start: 02-11-2022 Influenza vaccination INFLUENZA (#1) [facility] Start: 06-13-2021 DEPRESSION ASSESSMENT DEPRESSION ASS ESSMENT [facility] Start: 11-30-2020 COVID-19 VACCINE (3 - Booster for Moderna series) COVID-19 VACCINE (3 - Booster for Moderna series) [facility] Start: 08-27-2020 COVID-19 VACCINE (3 - Booster for Moderna series) COVID-19 VACCINE (3 - Booster for Moderna series) [facility] Start: 2017 HPV TESTING HPV TESTING [facility] Start: 2017 Screening for malign ant neoplasm of cervix [facility] Start: 01-11-2008 PAP TESTING PAP TESTING [facility] Start: 01-11-2008 Screening for malign ant neoplasm of cervix [facility] Start: 2006 DTaP,Tdap and Td Vaccines (1 - Tdap) DTaP,Tdap and Td Vaccines (1 - Tdap) [facility] Start: 2006 DTaP/Tdap/Td vaccine (1 - Tdap) DTaP/Tdap/Td vaccine (1 - Tdap) [facility] Start: 2006 Hepatitis B vaccination HEP B VACCINE (1 of 3 - 19+ 3-dose series) [facility] Start: 2006 Hepatitis B vaccine (1 of 3 - 19+ 3-dose series) Hepatitis B vaccine (1 of 3 - 19+ 3-dose series) [facility] Start: 2006 Third diphtheria, tetanus and acellular pertussis (DTaP) vaccination TDAP (ADULT) [facility] Start: 2006 Urine microalbumin profile DTAP,TDAP,TD (1 - Tdap) [facility] Start: 2005 Adult BMI Follow Up Plan Adult BMI Follow Up Plan [facility] Start: 2005 HEPATITIS C SCREENING HEPATITIS C SC REENING [facility] Start: 2005 Hepatitis C screening Hepatitis C sc reen [facility] Start: 2005 HIV SCREENING HIV SCREENING [facility] Start: 2002 HIV screening [facility] Start: 01-11-2000 Varicella vaccine (1 of 2 - 13+ 2-dose series) Varicella vaccine (1 of 2 - 13+ 2-dose series) [facility] Start: 1999 Adult depression screening assessment DEPRESSION SCREENING [facility] Start: 1999 Depression Screen Depression Screen [facility] Start: 01-11-1988 Varicella vaccine (1 of 2 - 2-dose childhood series) Varicella vaccine (1 of 2 - 2-dose childhood series) [facility] Start: 1987 HEPATITIS B (1 of 3 - 3-dose series) HEPATITIS B (1 of 3 - 3-dose series) [facility] Start: 1987 Hepatitis B vaccine (1 of 3 - 3-dose series) Hepatitis B vaccine (1 of 3 - 3-dose series) [facility] Start: 1987 Hepatitis C screening HEPATITI S C VIRUS SCREENING [facility] Start: 1987 Tetanus vaccination TETANUS [facility] CT Sinuses WO contrast [facility] Center Patient Education [facility] Work Phone: Patient referral [facility] Work Phone: End: 02-16-2024 Standard ECG ECG ECG STAT One Time for 1 Occurrences starting 02/16/2024 until 02/16/2024 [facility] Comment on above: One Time for 1 Occur rences starting 02/16/2024 until 02/16/2024 End: 03-28-2025 Type and screen(includes indirect saw) Type and screen(includes indirect saw) Blood Bank Routine Endometriosis Preop testing 1 Occurrences starting 03/28/2024 until 03/28/2025 [facility] Work Phone: Comment on above: 1 Occurrences starti ng 03/28/2024 until 03/28/2025 [facility] Immunizations Immunization Date Immunization Notes Care Provider Iraj hairston 06-09-2023 influenza, injectable, quadrivalent, contains preservative [facility] 06-09-2023 influenza virus vaccine, unspecified formulation Jennifer Moore MD Work Phone: [facility] 03-13-2023 influenza, injectable, quadrivalent, preservative free Jennifer Duran Other [facility] 03-31-2021 influenza, seasonal, injectable Jennifer Duran Other [facility] 07-02-2020 COVID-19 Vaccine Moderna - Documentation Purposes Only Jennifer Duran Other [facility] 06-04-2020 COVID-19 Vaccine Moderna - Documentation Purposes Only Jennifer Duran Other [facility] 12-10-2008 measles, mumps and rubella virus vaccine Yamilka Lorenzo [facility] NEGATED: Highlighted row has not occurred!03-23-2019 influenza, seasonal, injectable Patient Objection Jennifer Duran Other [facility] Payers Date Payer Category Payer Self-pay [id number] 2020 [facility] Managed Care - Other [facility] [id number] 2018 Unknown [id number]. 1.13.159. 2.7.3.513518.315 1987 Unknown [id number] 2.16840.1.129882.3.579. 2.593 1987 Unknown [id number] 2.840.1.010908.3.579. 2.182 1987 Unknown [id number] 2.16840.1.953211.3.579. 2.1259 1987 Unknown [id number] 2.16840.1.331901.3.579. 2.983 1987 Unknown [id number] 2.16.840.1.467904.3.579. 2.983 1987 Unknown [id number] 2.16840.1.033035.3.579. 2.983 1987 Unknown [id number] 2.16840.1.189412.3.579. 2.1286 1987 Unknown [id number] 2.16.840.1.858676.3.579. 2.1285 1987 Unknown [id number] 2.16.840.1.088057.3.579. 2.1285 1987 Unknown [id number] 2.16.840.1.141218.3.579. 2.174 1987 Unknown [id number] 2.16.840.1.974375.3.579. 2. 1987 Unknown [id number] 2.16.840.1.046581.3.579. 2.174 1987 Unknown [id number] 2.16.840.1.825079.3.579. 2. 1987 Unknown [id number] 2.16.840.1.495206.3.579. 2.1285 1987 Unknown [id number] 2.16840.1.358961.3.579. 2.1285 1987 Unknown [id number] 2.16.840.1.565533.3.579. 2.1285 1987 Unknown [id number] 2.16.840.1.201958.3.579. 2.1285 1987 Unknown [id number] 2.16.840.1.807242.3.579. 2.1285 1987 Unknown [id number] 2.16840.1.934088.3.579. 2.1285 1987 Unknown [id number] 2.16.840.1.880805.3.579. 2.1285 1987 Unknown [id number] 2.16.840.1.331865.3.579. 2.1285 1987 Unknown [id number] 2.16.840.1.940539.3.579. 2.1285 1987 Unknown [id number] 2.16.840.1.144182.3.579. 2.1285 1987 Unknown [id number] 2.16.840.1.933450.3.579. 2.1285 1987 Unknown [id number] 2.16.840.1.508398.3.579. 2.1285 1987 Unknown [id number] 2.16.840.1.219731.3.579. 2.1285 1987 Unknown [id number] 2.16.840.1.392625.3.579. 2.1285 1987 Unknown [id number] 2.16.840.1.686545.3.579. 2.1285 1987 Unknown [id number] 2.16.840.1.298080.3.579. 2.1285 1987 Unknown [id number] 2.16.840.1.821874.3.579. 2.1285 1987 Unknown [id number] 2.16.840.1.222888.3.579. 2 1987 Unknown [id number] 2.16.840.1.521611.3.579. 2 1987 Unknown [id number] 2.16.840.1.006079.3.579. 2. 1987 Unknown [id number] 2.16.840.1.578568.3.579. 2. 1987 Unknown [id number] 2.16.840.1.392249.3.579. 2 1987 Unknown [id number] 2.16.840.1.119226.3.579. 2 1987 Unknown [id number] 2.16.840.1.545585.3.579. 2. 1987 Unknown [id number] 2.16.840.1.089856.3.579. 2 1987 Unknown [id number] 2.16.840.1.602071.3.579. 2. 1987 Unknown [id number] 2.16.840.1.654995.3.579. 2.173 1987 Unknown [id number] 2.16.840.1.685570.3.579. 2.727 1959 Unknown [id number] Unknown [id number] Unknown [id number] Unknown [id number] Unknown [id number] Unknown [id number] Unknown [id number] Unknown [id number] Unknown [id number] Social History Date Type Detail Facility Start: 09-14-2021 End: 05-30-2023 Tobacco smoking status NHIS Never smoked tobacco (finding) [facility] Start: 1985 Sex Assigned At Female [facility] Tobacco smoking status Never [facility] Start: 05-30-2023 End: 05-27-2024 Sex Assigned At Female [facility] [employer] Other Start: 04-05-2018 End: 05-30-2023 Tobacco use and exposure Smokeless tobacco non-user [facility] Start: 10-27-2020 End: 06-09-2024 Alcohol intake Current drinker of alcohol (finding) [facility] Start: 04-05-2018 End: 05-25-2023 History SDOH Alcohol Comment socially [facility] Start: 1985 Sex Assigned At Not on file C [facility] Start: 02-06-2022 End: 04-09-2022 Exposure to SARS-CoV-2 (event) Not sure [facility] History of tobacco use Passive smoker [facility] Start: 09-05-2023 End: 01-22-2024 Alcohol intake Not Asked [facility] Start: 05-30-2023 End: 05-27-2024 History of Social function [facility] [facility] How often to you hav e a drink containing alcohol? Monthly or less [employer] How many standard drinks containing alcohol do you have on a typical day? 1 or 2 [facility] How often do you hav e 6 or more drinks on 1 occasion? Less than monthly [facility] Start: 05-30-2023 Alcohol Comment social [employer] Tobacco smoking stat [facility] Tobacco smoking consumption unknown [facility] Start: 01-14-2015 Sex Female (finding) [facility] Start: 04-03-2024 Alcohol Comment monthly [facility] Start: 06-27-2024 Alcoholic beverage intake Ex-drinker (finding) [employer] [facility] Comment on above: Denies Tobacco smoking status No Smokin g Status Entered [facility] Goals Date Patient Goal Desired Activity /State Functional Status Date Assessment Result Facility 06-27-2024 Functional Status N/A [facility] 06-24-2024 Functional Status N/A [facility] 02-13-2024 Functional Status N/A [facility] 09-29-2023 Functional Status N/A [facility] 09-26-2023 Functional Status N/A [facility] 07-31-2023 Functional Status N/A [facility] 04-24-2023 Functional Status N/A [facility] 03-29-2023 Functional status Patient at [facility] Work Phone: 12-04-2021 Functional Status N/A [facility] Mental Status Date Assessment Result Facility 03-29-2023 Cognitive function Cognitive Sta tus Patient at Baseline [facility] Work Phone: Clinical Notes 03-19-2019 to [...] Panel Lipase Level UA with Cult Rflx [facility] 01-16-2025 Hospital Discharge instructions Patient Education 06/28/2024 01:38:52 Abdominal Pain, Adult, Rqjs-zv-Abab Abdominal Pain, Adult Many things can cause belly (abdominal) pain. In most cases, belly pain is not a serious problem and can be watched and treated at home. But in some cases, it can be serious. Your doctor will try to find the cause of your belly pain. Follow these instructions at home: Medicines Take eovp-xlm-pgelslx and prescription medicines only as told by [...] provider. Document Revised: 03/16/2023 Document Reviewed: 03/16/2023 [employer] Patient Education 2023 [employer]. Follow Up Care 06/27/2024 21:47:06 With:[employer] Address: [place] [address]- [facility] (1) When:07/01/2024 Comments:Please follow-up with your primary care doctor and CONVENTION WORKER for further evaluation and management. Return to the ED for any new or worsening symptoms. With:XXXX NONE Address: [place] When:Within 3 Day(s) [facility] 01-16-2025 NoteED Patient Education Note Gastroenterology Abdominal Pain, Adult Many things can cause belly (abdominal) pain. In most cases, belly pain is not a serious problem and can be watched and treated at home. But in some cases, it can be serious. Your doctor will try to find the cause of your belly pain. Follow these instructions at home: Medicines ??? Take mtgy-mzo-lghiobl and prescription medicines only as told by [...] provider. Document Revised: 03/16/2023 Document Reviewed: 03/16/2023 Broadband Voice Patient Education ? 2023 [employer] 06-27-2024 Hospital Discharge instructions* Discharge Instructions* Randee Richardson MD - 06/27/2024 3:16 PM EST Please call your CONVENTION WORKER and schedule follow-up visit. Continue taking your pain medications as prescribed. Return to the ER for any worsening symptoms or concerns * Attachments The following attachments cannot be sent through Care Everywhere. * Abdominal Pain (Lebanese) [facility] Discharge instructions Patient Education 06/25/2024 02:47:57 [...] Follow these instructions at home: Medicines Take jwyl-xoi-npkemwr and prescription medicines only as told by [...] provider. Document Revised: 03/16/2023 Document Reviewed: 03/16/2023 Broadband Voice Patient Education 2023 [employer]. Follow Up Care 06/24/2024 19:25:17 With:Jacy CHIRINOS Address: [address] [place] [address] Business (1) When:06/28/2024 [facility] 01-13-2025 NoteED Patient Education Note Gastroenterology [...] these instructions at home: Medicines ??? Take tilu-rkx-ualgwmi and prescription medicines only as told by [...] provider. Document Revised: 03/16/2023 Document Reviewed: 03/16/2023 Broadband Voice Patient Education ? 2023 [employer].[facility] 06-24-2024 Evaluation + Plan noteExtracted from: Title:ED Note Author:Ritesh Heath DO Date :06/24/24 Abdominal pain, acute (R10.9 : Unspecified abdominal pain) Ordered: acetaminophen-oxycodone, 1 tab(s), Oral, q8hr for 3 day(s), 9 tab(s), Refill(s) 0, [facility]/pharmacy #[id number], 165, cm, 06/24/24 19:33:00 [...] Beta Hcg Qual UA with Cult Rflx [facility] 12-30-2024 NoteEducation Materials Obstetrics and Gynecology [...] Follow these instructions at home: ? Take jags-noj-qsdolky and prescription medicines only as told by [...] provider. Document Revised: 10/31/2020 Document Reviewed: 11/06/2020 Broadband Voice Patient Education ? 2023 [employer].[facility] [id number] Miscellaneous Notes* Telephone Encounter - Shefali Rodriguez - 06/11/2024 8:57 AM EST [employer] Co[employer] Operator left voicemail to schedule a H/F with Kendra in [place]. [facility] Telephone encounter Note* Telephone Encounter - Shefali Rodriguez - 06/11/2024 8:57 AM EST [employer] Co[employer] Operator epifanio friedmanmail to schedule a H/F with Kendra in [place]. [facility]12-28-2024 Miscellaneous Notes* Telephone Encounter - Isabell Tor - 06/09/2024 9:25 PM EST Contract: [address] kidd abdominal pain, post-op Relayed info to Dr Woo on cell and transferred documented [facility] Telephone encounter Note* Telephone Encounter - Isabell Tor - 06/09/2024 9:25 PM EST Contract: [address] Bettye kidd abdominal pain, post-op Relayed info to Dr Woo on cell and transferred [facility]12-28-2024 Miscellaneous Notes* Telephone Encounter - Isabellalisia Lentz - 06/09/2024 8:05 PM EST Contract: [address] [facility] [address] kidd abnormal CT, post-op Relayed info to Dr Woo on cell and transferred documented in [facility] Telephone encounter Note* Telephone Encounter - Isabellalisia Lentz - 06/09/2024 8:05 PM EST Contract: [address] kidd abnormal CT, post-op Relayed info to Dr Woo on cell and transferred [facility]12-27-2024 NoteEducation Materials Obstetrics and Gynecology Endometriosis Follow-up with your CONVENTION WORKER to review this emergency department visit and [...] these instructions at home: Medicines ? Take inuv-gzy-exjqbzv and prescription medicines only as told by your health care provider. ? Ask your health care provider if the medicine prescribed to you: ? Requires you to avoid driving or using machinery. ? Can cause constipation. You may need to take these actions to prevent or treat constipation: ? Drink enough fluid to keep your urine pale yellow. ? Take btbm-uat-nskqiwg or prescription medicines. ? Eat foods that [...] important. Where to find more information ? [employer]: www.acog.org ? [...] or you (more content not included)... [facility] [id number] Miscellaneous Notes* Telephone Encounter - Nunu Stewart RN - 04/09/2024 4:47 PM EDT Patient left VM on Rx refill line requesting 1-2 day supply refill on oxycodone. Patient had hysterectomy on Friday 04/06 and states she is still experiencing slight pain. documented [facility] Telephone encounter Note* Telephone Encounter - Nunu Stewart RN - 04/09/2024 4:47 PM EDT Patient left VM on Rx refill line requesting 1-2 day supply refill on oxycodone. Patient had hysterectomy on Friday 04/06 and states she is still experiencing slight pain. [facility]10-22-2024 Instructions* Pre-Procedure Instructions - Lucy Dennison RN - 04/03/2024 3:45 PM EDT Your surgery/procedure is scheduled at [facility] on 04/06 at 1100 Arrival Time 0900 [facility] Address: [address] [place] [address] in [address]ing lot located on [facility]. Report to the Entrance B. Check in at the information desk the surgery. The waiting room located on the second floor. If you have any questions prior to surgery, please call Pre-Admission Clinic at [phone] between 7:30 am and 4:30 pm Tuesday through Tuesday. If you have questions the morning of surgery, please call the Pre-op Department at [phone]. Notify your SURGEON if you develop any [...] piercings ,hair extensions that contain metal, nail urdu, make-up, and contact lens. You may brush [...] RIGHTS AND RESPONSIBILITIES As a patient at [facility], you have the right to: Receive medical care and be informed of who is taking care of you Be treated with dignity and respect Have a family member/market survey representative of choice and your physician notified of your admission Receive information and actively participate in decisions about your care and treatment Refuse care, treatment and services Decide who may provide your support and speak for you Access yazidism and spiritual services Participate in ethical issues [...] of hospital charges and payment methods Patient/patient market survey representative responsibilities are to: Provide information about health status to facilitate care, treatment and services Follow the treatment, plan, keep appointments and speak up when you do not understand the plan Respect the rights of other patients and healthcare personnel Follow organizational rules and regulations that support quality care and a safe environment Fulfill financial obligations as promptly as possible [facility]10-22-2024 Miscellaneous Notes* Pre-Procedure Instructions - Lucy Dennison RN - 04/03/2024 3:45 PM EDT Your surgery/procedure is scheduled at [facility] on 04/06 at 1100 Arrival Time 0900 [facility] Address: [address] [place] [address] Park in P1 Parking lot located on [facility]. Report to the Entrance B. Check in at the information desk the surgery. The waiting room located on the second floor. If you have any questions prior to surgery, please call Pre-Admission Clinic at [phone] between 7:30 am and 4:30 pm Tuesday through Tuesday. If you have questions the morning of surgery, please call the Pre-op Department at [phone]. Notify your SURGEON if you develop any [...] piercings ,hair extensions that contain metal, nail urdu, make-up, and contact lens. You may brush [...] RIGHTS AND RESPONSIBILITIES As a patient at [facility], you have the right to: Receive medical care and be informed of who is taking care of you Be treated with dignity and respect Have a family member/market survey representative of choice and your physician notified of your admission Receive information and actively participate in decisions about your care and treatment Refuse care, treatment and services Decide who may provide your support and speak for you Access yazidism and spiritual services Participate in ethical issues [...] of hospital charges and payment methods Patient/patient market survey representative responsibilities are to: Provide information about health status to facilitate care, treatment and services Follow the treatment, plan, keep appointments and speak up when you do not understand the plan Respect the rights of other patients and healthcare personnel Follow organizational rules and regulations that support quality care and a safe environment Fulfill financial obligations as promptly as possible documented in this encounterSelect [facility] History of Present illness Narrative* Adiel Aparicio [...] procedures Referring and communicating with other health doggy daycare activities director (not separately reported) Documenting clinical information in the electronic or other health record Adiel Aparicio MD documented in this encounterSelect [facility] Emergency department Note* Davi Marie, - 03/03/2024 4:47 PM EDT Emergency Department Report [facility] EMERGENCY MEDICINE Service Date:.03/03/24 PCP: [...] for months. Patient states she has seen CONVENTION WORKER specialist in [place], Dr. Aparicio's, to have her uterus/hysterectomy secondary to endometriosis. Patient says that she then farzana lion PCPs at this point. Patient does have a OBGYN in [facility], Dr. Berrios. Patient states she is not [...] by Nasal route once for 1 dose. [place] into the nose as directed. Call 911. [...] [facility] Hunger Scre[facility] Within the past 12 months [...] file Social Connections: Unknown (03/22/2023) Received from [facility] Family and Community Support Help with Day-to-Day Activities: Not on file Lonely or Isolated: Not on file Intimate Partner Violence: Unknown (03/22/2023) Received from [facility] Abuse Screen Unsafe at Home or Work/School: Not on file Feels Threatened by Someone?: Not on file Does Anyone Keep You from Contacting Others or Doint Things Outside the Home?: Not on file Physical Sign of Abuse Present: Not on file Housing Stability: Unknown (03/22/2023) Received from [facility] Housing Stability Current Living Arrangements: Not [...] to palpation. GI: Soft, patient does have bxph-gf-nwggbowq tenderness to palpation over lower quadrant, no [...] Orders Placed This Encounter AMB REFERRAL TO OB-DEPARTMENT HELPER AMB REFERRAL TO CHRONIC PAIN CLINIC hydroCODone-acetaminophen [...] YELLOW YELLOW APPEARANCE, URINE CLEAR CLEAR Specific [place], Urine 1.010 1.010 - 1.025 PH URINE [...] have definitive treatment from Dr. Aparicio's in [place] for her endometriosis and hysterectomy which patient [...] ED w/ steady gait [facility] Emergency department Note* Davi Marie DO - 03/03/2024 4:47 PM EDT Emergency Department Report [facility] EMERGENCY MEDICINE Service Date:.03/03/24 PCP: [...] for months. Patient states she has seen CONVENTION WORKER specialist in [place], Dr. Mendoza, to have her uterus/hysterectomy secondary to endometriosis. Patient says that she then b etween PCPs at this point. Patient does have a OBGYN in [facility], Dr. Berrios. Patient states she is not [...] by Nasal route once for 1 dose. [place] into the nose as directed. Call 911. [...] Received from [facility] Hunger Screening Within the past 12 months [...] file Social Connections: Unknown (03/22/2023) Received from [facility] Family and Community Support Help with Day-to-Day Activities: Not on file Lonely or Isolated: Not on file Intimate Partner Violence: Unknown (03/22/2023) Received from [facility] Abuse Screen Unsafe at Home or Work/School: Not on file Feels Threatened by Someone?: Not on file Does Anyone Keep You from Contacting Others or Doint Things Outside the Home?: Not on file Physical Sign of Abuse Present: Not on file Housing Stability: Unknown (03/22/2023) Received from [facility] Housing Stability Current Living Arrangements: Not [...] to palpation. GI: Soft, patient does have nyxu-yf-kcvsvlxw tenderness to palpation over lower quadrant, no [...] Orders Placed This Encounter AMB REFERRAL TO OB-DEPARTMENT HELPER AMB REFERRAL TO CHRONIC PAIN CLINIC hydroCODone-acetaminophen [...] YELLOW YELLOW APPEARANCE, URINE CLEAR CLEAR Specific [place], Urine 1.010 1.010 - 1.025 PH URINE [...] have definitive treatment from Dr. Aparicio's in [place] for her endometriosis and hysterectomy which patient [...] . . Davi Marie DO 03/03/24 1706 [facility] Emergency department Note* Geri Burciaga RN [...] ambulatory out of ED w/ steady gait [facility] Hospital Discharge instructions* Discharge Instructions* Davi Marie DO - 03/03/2024 4:[address] Wilson, your OBGYN in [place] to see if your appointment may be moved up. Call Dr. Braden in [place] on Tuesday to see if they will [...] to you as well. documented [facility] Emergency department Note* Ashley Delcid MD - 02/24/2024 11:24 PM EDT Emergency Department Report [facility] EMERGENCY MEDICINE Service Date:.02/25/24 PCP: [...] has a history of endometriosis. 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 States she is waitingto be scheduled for a total hysterectomy. Last saw them in November as per records. She explains they just have not scheduled it yet but she is in constant pain. Review of records shows similar presentation at outlying facilities. Is here in [place] helping grandmother pack up to move to [place] with the rest of the family Review [...] by Nasal route once for 1 dose. [place] into the nose as directed. Call 911. [...] Insecurity: No Food Insecurity (01/27/2024) Received from [facility] Hunger Screening Within the past 12 [...] file Social Connections: Unknown (03/22/2023) Received from [facility] Family and Community Support Help with Day-to-Day Activities: Not on file Lonely or Isolated: Not on file Intimate Partner Violence: Unknown (03/22/2023) Received from [facility] Abuse Screen Unsafe at Home or Work/School: Not on file Feels Threatened by Someone?: Not on file Does Anyone Keep You from Contacting Others or Doint Things Outside the Home?: Not on file Physical Sign of Abuse Present: Not on file Housing Stability: Unknown (03/22/2023) Received from [facility] Housing Stability Current Living Arrangements: Not [...] YELLOW YELLOW APPEARANCE, URINE CLEAR CLEAR Specific [place], Urine 1.010 1.010 - 1.025 PH URINE [...] I offered to contact her physician in [place] and see if I could transfer her [...] like her to call her Doctor in [place] for possible transfer. Pt refuses. Pt states [...] her home if discharged [facility] Emergency department Note* Ashley Delcid MD - 02/24/2024 11:24 PM EDT Emergency Department Report [facility] EMERGENCY MEDICINE Service Date:.02/25/24 PCP: [...] has a history of endometriosis. 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 States she is waitingto be scheduled for a total hysterectomy. Last saw them in November as per records. She explains they just have not scheduled it yet but she is in constant pain. Review of records shows similar presentation at outlying facilities. Is here in [place] helping grandmother pack up to move to [place] with the rest of the family Review [...] by Nasal route once for 1 dose. [place] into the nose as directed. Call 911. [...] Received from [facility] Hunger Screening Within the past 12 months [...] file Social Connections: Unknown (03/22/2023) Received from [facility] Family and Community Support Help with Day-to-Day Activities: Not on file Lonely or Isolated: Not on file Intimate Partner Violence: Unknown (03/22/2023) Received from [facility] Abuse Screen Unsafe at Home or Work/School: Not on file Feels Threatened by Someone?: Not on file Does Anyone Keep You from Contacting Others or Doint Things Outside the Home?: Not on file Physical Sign of Abuse Present: Not on file Housing Stability: Unknown (03/22/2023) Received from [facility] Housing Stability Current Living Arrangements: Not [...] YELLOW YELLOW APPEARANCE, URINE CLEAR CLEAR Specific [place], Urine 1.010 1.010 - 1.025 PH URINE [...] I offered to contact her physician in [place] and see if I could transfer her [...] information. . Ashley Delcid MD 02/25/24 [id number] [facility] Emergency department Note* Geri Burciaga RN - 02/24/2024 11:21 PM EDT AMA form signed. Pt aware of risks and refuses hospital admission. Pt states grandmother is at facility to transport her home. Denies further needs at this time. Pt is a&o respirations are even and unlabored. Pt ambulatory out of ED w/ steady gait [facility] Emergency department Note* Geri Burciaga RN [...] like her to call her Doctor in [place] for possible transfer. Pt refuses. Pt states she does not want to be admitted anywhere and states will sign AMA form and call her pcp in the morning. [facility]13[facility] Emergency department Note* Geri Burciaga RN - 02/24/2024 9:46 PM EDT Pt states pain has not improved after dilaudid administration. Dr. Delcid made aware [facility]-13[facility] Emergency department Note* Geri Burciaga RN - 02/24/2024 9:20 PM EDT Pt states her grandmother will transport her home if discharged [facility]09-[facility] Emergency department Note* Una Levy RN - 02/16/2024 5:12 PM EDT Discharge instructions provided. Patient verbalized understanding. Denies any questions or concernsprior to discharge. Ambulatory out of ED with Rx X2. [facility] Emergency department Note* Una Levy RN [...] 02/16/2024 1:48 PM EDT Emergency Department Report [facility] EMERGENCY MEDICINE Service Date:.02/16/24 PCP: [...] by Nasal route once for 1 dose. [place] into the nose as directed. Call 911. [...] Received from [facility] Hunger Screening Within the past 12 months [...] file Social Connections: Unknown (03/22/2023) Received from [facility] Family and Community Support Help with Day-to-Day Activities: Not on file Lonely or Isolated: Not on file Intimate Partner Violence: Unknown (03/22/2023) Received from [facility] Abuse Screen Unsafe at Home or Work/School: Not on file Feels Threatened by Someone?: Not on file Does Anyone Keep You from Contacting Others or Doint Things Outside the Home?: Not on file Physical Sign of Abuse Present: Not on file Housing Stability: Unknown (03/22/2023) Received from [facility] Housing Stability Current Living Arrangements: Not on file Potentially Unsafe Housing Conditions: Not on file Physical Exam: Physical Exam CONST: -Well-developed well-nourished ; -In no acute distress. -Vitals reviewed. EYES: -EOM intact, KOLBY: -Sclera normal and conjunctiva: clear bilaterally. ENT: - Normal pharynx pink and moist. NECK: -Supple (vfzr-pm-chmpp). CARD: -Rate and rhythm: Regular -Murmurs: No [...] by Nasal route once for 1 dose. [place] into the nose as directed. Call 911. [...] information. . . Jennifer Moore MD 02/16/24 [id number] documented in this [facility]09-05-2024 Hospital Discharge instructions* Discharge Instructions* Jennifer Moore MD - 02/16/2024 4:52 PM EDT Tylenol for moderate pain. Full liquid diet for 2 days. * Attachments The following attachments cannot be sent through Care Everywhere. * Abdominal Pain (Lebanese) documented in this [facility]09-05-2024 Emergency department Note* Una Levy RN - 02/16/2024 3:40 PM EDT Patient states that pain is getting worse again. Dr Moore notified. No new orders received at this time. States he is waiting for CT results. Patient updated on plan. [facility]09-05-2024 Emergency department Note* Tangela Guajardo RN - 02/16/2024 3:10 PM EDT Pt taken to CT scan [facility]09-05-2024 Physician Emergency department Note* Jennifer Moore MD - 02/16/2024 1:48 PM EDT Emergency Department Report [facility] EMERGENCY MEDICINE Service Date:.02/16/24 PCP: [...] by Nasal route once for 1 dose. [place] into the nose as directed. Call 911. [...] Received from [facility] Hunger Screening Within the past 12 months [...] file Social Connections: Unknown (03/22/2023) Received from [facility] Family and Community Support Help with Day-to-Day Activities: Not on file Lonely or Isolated: Not on file Intimate Partner Violence: Unknown (03/22/2023) Received from [facility] Abuse Screen Unsafe at Home or Work/School: Not on file Feels Threatened by Someone?: Not on file Does Anyone Keep You from Contacting Others or Doint Things Outside the Home?: Not on file Physical Sign of Abuse Present: Not on file Housing Stability: Unknown (03/22/2023) Received from [facility] Housing Stability Current Living Arrangements: Not on file Potentially Unsafe Housing Conditions: Not on file Physical Exam: Physical Exam CONST: -Well-developed well-nourished ; -In no acute distress. -Vitals reviewed. EYES: -EOM intact, KOLBY: -Sclera normal and conjunctiva: clear bilaterally. ENT: - Normal pharynx pink and moist. NECK: -Supple (migp-jp-rlbdr). CARD: -Rate and rhythm: Regular -Murmurs: No [...] by Nasal route once for 1 dose. [place] into the nose as directed. Call 911. [...] information. . . Jennifer Moore MD 02/16/241654 [facility]09-02-2024 Evaluation + Plan noteExtracted from: Title:ED [...] EDT, STAT, Start date 02/13/24 0:43:00 EDT [facility] 09-02-2024 Hospital Discharge instructions Patient Education [...] or after getting dental care. Medicines Take nmtb-jwu-gqalkcf and prescription medicines only as told by [...] pain may be mild or severe. Take xlki-wfd-jhaawzu and prescription medicines only as told by [...] provider. Document Revised: 03/04/2021 Document Reviewed: 03/04/2021 Broadband Voice Patient Education 2023 [employer]. Follow Up Care 02/13/2024 00:22:40 With:Dental: [facility] [phone] Address:Unknown When:02/16/2024 With:Dental: [facility] [employer] [phone] Address:Unknown When:02/16/2024 With:Dental: [facility] [phone] Address:Unknown When:02/16/2024 [facility] 09-02-2024 NoteED Patient Education Note Dentistry [...] after getting dental care. Medicines ? Take oiby-tnc-iiydyda and prescription medicines only as told by [...] may be mild or severe. ? Take kljo-hwo-uizqyvl and prescription medicines only as told by [...] provider. Document Revised: 03/04/2021 Document Reviewed: 03/04/2021 Broadband Voice Patient Education ? 2023 [facility] Discharge instructions* Discharge Instructions* [...] through Care Everywhere. * Ovarian Cyst: Functional (Lebanese) [facility]* Author Jennifer Duran [facility] Authored January 19, 2024 11: 44am The above note written by __ _Polly Collado____ acting as human recorder, note dictated by Dr. Mcfadden .I performed the above HPI, ROS, and Examination. I formulated and dictated the treatment plan and was present for entire encounter. Jennifer Duran D.O. [facility] Work Phone: 1(878) 369-278605-28-2024 Hospital Discharge instructions* Discharge Instructions* Eren Camejo DO - 11/08/2023 12:01 PM EDT Use clindamycin as prescribed. Continue the pain medicine that you have at home as needed for pain.Follow-up with dentist as scheduled * Attachments The following attachments cannot be sent through Care Everywhere. * Tooth and Gum Pain (Lebanese) [facility]* Author Jennifer Duran [facility] Authored May 7th, 2024 3:45pm The above note written by __ _Polly Collado____ acting as human recorder, note dictated by Dr. Mcfadden .I performed the above HPI, ROS, and Examination. I formulated and dictated the treatment plan and was present for entire encounter. Jennifer Duran D.O. [facility] Work Phone: 1(612) 992-867704-19-2024 Evaluation + Plan noteExtracted from: Title:ED Note [...] Diagnostic Tests Pending * Urine Culture 09/30/23 [facility]04-19-2024 Hospital Discharge instructions Patient Education 09/30/2023 [...] (oophorectomy). Follow these instructions at home: Take nzld-npo-blklrkk and prescription medicines only as told by [...] provider. Document Revised: 11/06/2020 Document Reviewed: 11/06/2020 Broadband Voice Patient Education 2022 [employer]. Follow Up Care 09/29/2023 23:40:10 With:Rose Royal Address: [address] [facility] [address] [place] [address]- Business (1) When:10/03/2023 [facility]04-15-2024 Hospital Discharge instructions Follow Up Care 09/26/2023 13:55:08 With:[employer] Address: [address] [place] [address]- Business (1) When:09/29/2023 17:49:12 With:Tarun BRADEN Address: [address] , [place] [address]- Business (1) When:09/29/2023 17:49:03 With:XXXX NONE Address: [place] When:Within 3 Day(s) [facility]04-15-2024 Evaluation + Plan noteExtracted from: Title:ED [...] q12hr, # 20 tab(s), Refills(s) 0, Pharmacy: [facility]/pharmacy #[id number], 165, cm, 09/26/23 14:18:00 EDT, Height/Length Dosing, 81.2, kg, 09/26/23 14:18:00 EDT, Weight Dosing hyoscyamine, 0.125 mg = 1 tab(s), Oral, QID, X 5 day(s), # 20 tab(s), Refills(s) 0, Pharmacy: [facility]/pharmacy #[id number], 165, cm, 09/26/23 14:18:00 EDT, Height/Length Dosing, 81.2, kg, 09/26/23 14:18:00 EDT, Weight Dosing ketorolac, 30 mg = 1 mL, Injection, IV, Once, Stop date 09/26/23 15:40:00 EDT, STAT, Start date 09/26/23 15:40:00 EDT, 09/26/23 15:40:00 EDT polyethylene glycol 3350, 17 gm, Oral, Daily, X 7 day(s), # 119 gm, Refills(s) 0, Pharmacy: [facility]/pharmacy #[id number], 165, cm, 09/26/23 14:18:00 EDT, Height/Length Dosing, 81.2, kg, 09/26/23 14:18:00 EDT, Weight Dosing Beta hCG Qual CBC w/ Auto Diff Comprehensive Metabolic Panel CT Abdomen/Pelvis w/ Contrast Drug Screen Urine eGFR Extra Blue Tube Extra SST Tube Lipase Level UA with Cult Rflx US Pelvis Non-OB Complete US Transvaginal Non-OB [facility]02-18-2024 Hospital Discharge instructions Patient Education 07/31/2023 [...] Follow these instructions at home: Medicines Take ynse-vfi-ehzoqof and prescription medicines only as told by [...] Watch your condition for any changes. Take ljsw-jiw-cosovzh and prescription medicines only as told by [...] provider. Document Revised: 07/18/2020 Document Reviewed: 10/08/2019 Broadband Voice Patient Education 2022 [employer]. Follow Up Care 07/31/2023 15:34:13 With:Follow-up with your CONVENTION WORKER at [facility] Address:Unknown When:08/03/2023 17:52:19 Comments:Call the office [...] weakness, or any new or worsening symptoms. [facility]02-15-2024 Evaluation note* Author Jennifer Duran [facility] Authored July 28, 2023 1:18pm The above note written by __ _Polly Collado____ acting as human recorder, note dictated by Dr. Mcfadden .I performed the above HPI, ROS, and Examination. I formulated and dictated the treatment plan and was present for entire encounter. Jennifer Duran D.O. [facility] Work Phone: [phone]) 640-576902-06-2024 Evaluation note* Encounter Date Diagnosis Assessment Notes Treatment Notes Treatment Clinical Notes Jul, Anxiety (ICD-10 - F41.9) [facility] Other 02-06-2024 Evaluation note* Encounter Date Diagnosis [...] an appointment with her specialist through the [facility] and is scheduled at the end of this month (July) and is hoping to have a total hysterectomy. [facility] Other 12-26-2023 Evaluation note* Encounter Date Diagnosis Assessment Notes Treatment Notes Treatment Clinical Notes May, Cough (ICD-10 - R05.9) [facility] Other 12-04-2023 Evaluation note* Encounter Date Diagnosis Assessment Notes Treatment Notes Treatment Clinical Notes May, Anxiety (ICD-10 - F41.9) [facility] Other 11-12-2023 Hospital Discharge instructions Patient Education [...] Follow these instructions at home: Medicines Take ygrr-yer-fdcooqu and prescription medicines only as told by [...] Watch your condition for any changes. Take zmqf-tgg-mkdzknx and prescription medicines only as told by [...] provider. Document Revised: 07/18/2020 Document Reviewed: 10/08/2019 Broadband Voice Patient Education 2022 [employer]. Follow Up Care 04/24/2023 13:13:55 With:YOUR OBGYN at [facility] Address:Unknown When:04/27/2023 15:50:22 Comments:Seek immediate medical [...] develop any new or worsening symptoms. 3. [facility]11-12-2023 Evaluation + Plan noteExtracted from: Title:ED Note Author:Jignesh Dumont DO Date:06/24/22 Abdominal pain, acute, left lower quadrant (R10.32: Left lower quadrant pain) Ordered: oxycodone, 5 mg = 1 cap(s), Oral, q6hr, PRN Pain 8-10, X 3 day(s), # 12 cap(s), Refills(s) 0, Pharmacy: [facility]/pharmacy #[id number], 165.1, cm, 04/24/23 13:32:00 [...] Saline Lock Insert UA With Cult Reflex [facility]11-06-2023 Evaluation note* Encounter Date Diagnosis Assessment [...] an appointment with her specialist at the [facility] in June (2023) which was the soonest they could get her in. She is hoping that they will at least remove the ovary but she is willing to have a total hysterectomy if they will do it. 1:13 PM - 1:20 PM [facility] Other 10-20-2023 Evaluation note* Encounter Date Diagnosis Assessment Notes Treatment Notes Treatment Clinical Notes Mar, Anxiety (ICD-10 - F41.9) [facility] Other 10-17-2023 Progress note Author Christi Aquino [facility] March 29, 2023 4:11pm Note Date/Time March 29, 2023 1 1:35am [facility] [address] [place], [place] [id number] Progress Note Signed with Addenda Patient: Antonia Noyola MR#: [id number] : 1985 Acct:[id number] Age/Sex: 38 / F Adm Date: 3 Loc: Room: [address] [place] [address] Type: ADM IN Attending Dr: Christi Aquino MD Copies to: ~ ADDENDUM1 Upon re-evaluation in the afternoon, patient feels better and would like to go home. Prescribed pain medications as needed as directed. Advised to continue to follow up with [facility] staff glass science engineer. 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 glass science engineer eval requested for further evaluation. 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 Afebrile here, no leukocytosis or obvious evidence of infectious process. Placed on Pain meds regimen IV and PO. Ongoing monitoringfor now. Documented By: Christi Aquino MD 03/29/23 11 32 Signed By: <Electronically signed by Christi Aquino MD> 03/29/23 1868 [facility] Work Phone: 1(604) 667-832010-17-2023 History and physical note Author Megan Muniz [facility] March 29, 2023 7:29am Note Date/Time March 29, 2023 7 :29am [facility] [address] [place] [address] Hospitalist H&P Signed Patient: Antonia Noyola MR#: [id number] : 1985 Acct:[id number] Age/Sex: 38 / F Adm Date: 3 Loc: Room: [address] [place] [address] Type: ADM IN Attending Dr: Christi Aquino [...] findings. The patient case was discussed with CONVENTION WORKER, who was not convinced that left [...] in the computer system reviewed [facility] Medical History Anemia Endometriosis Surgical History History [...] % (Auto) 42.8 % (.) 03/29/23 01:40 [place] % (Auto) 7.3 % (.) 03/29/23 01:40 Eos % (Auto) 1.8 % (.) 03/29/23 01:40 Baso % (Auto) 1.3 % (.) 03/29/23 01:40 Nucleat RBC Rel Count 0.1 /100 WBC (0-0.5) 03/29/23 01:40 Neut # (Auto) 3.5 x10E3/uL (1.8-7.7) 03/29/23 01:40 Lymph # (Auto) 3.2 x10E3/uL (1.00-4.8) 03/29/23 01:40 [place] # (Auto) 0.6 x10E3/uL (0.0-0.8) 03/29/23 01:40 [...] pH 7.5 (5.0-9.0) 03/29/23 02:53 Ur Specific [place] 1.003 (1.001-1.030) 03/29/23 02:53 Urine Protein Negative [...] she does have tachycardia We will consult CONVENTION WORKER Check lactic acid 2. Microcytic iron [...] <Electronically signed by Megan Muniz MD> 03/29/23728 [facility] Work Phone: 1(115) 307-533008-02-2023 Evaluation note* Encounter Date Diagnosis Assessment Notes [...] relief. She would need to see an card services specialist for this. She is agreeable to [...] an appointment to see Dr. Castillo again. [facility] Other 06-29-2023 Evaluation note* Encounter Date Diagnosis Assessment Notes Treatment Notes Treatment Clinical Notes Nov, Acute sinusitis (ICD-10 - J01.90) Nov, Cough (ICD-10 - R05.9) [facility] Other 05-01-2023 Evaluation note* Encounter Date Diagnosis [...] no discrepancies noted. Rx was called into [facility], spoke with Chad TOWNSEND, the Xanax 0.25 MG tablets are out of stock currently so her dose was increased to 0.5 MG and she was instructed to take 1/2 tablet q8-12 hours as needed. Only 12 tablets were called in. Pt voiced understanding when notified of this change. October, Other 3:17 PM - 3:23 PM [facility] Other 04-12-2023 Evaluation note* Encounter Date Diagnosis [...] Sep, Other 12:46 PM - 12:51 PM [facility] Other 01-30-2023 Evaluation note* Encounter Date Diagnosis Assessment Notes Treatment Notes Treatment Clinical Notes Jun, Anxiety (ICD-10 - F41.9) [facility] Other 01-30-2023 Evaluation note* Encounter Date Diagnosis [...] Side effects/risks/benefi ts of medication were reviewed. [facility] Other 12-21-2022 Evaluation note* Encounter Date Diagnosis [...] May, Other 3:27 PM - 3:32 PM [facility] Other 11-18-2022 Miscellaneous Notes* Telephone Encounter - Tabby Steele Ma - 04/30/2022 2:25 PM EST CMP if needed. Tabby Steele Ma [facility]* Encounter Date Diagnosis Assessment Notes Treatment Notes Treatment Clinical Notes Mar, Anxiety (ICD-10 - F41.9) [place] [employer] Other 10-31-2022 Evaluation note* Encounter Date Diagnosis [...] done and then return to see her CONVENTION WORKER at the [facility] because she feel she has another ovarian cyst. [facility] Other 10-28-2022 Miscellaneous Notes* Allied Health - [...] 2:21 PM PAGER/CONTACT #: [facility] Miscellaneous Notes* Telephone Encounter - MARY Narvaez - 03/15/2022 12:04 PM EDT Patient appears on the First Time Treatment List for a non-oncology treatment. No psychosocial assessment is indicated. JANNA Narvaez documented [facility] NoteHNO ID: [id number] Author: Madyson Ni APRN.PIOTR Service: ? 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 She works 7 PM to [...] deficiency. Recent laboratories from [facility] October 04, 2020 show hemoglobin [...] ovarian cyst (more content not included)...[facility]09-28-2022 History of Present illness Narrative* Madyson Ni APRN.TOE CLOSING MACHINE TENDER - 03/10/2022 2:00 PM EDT Images from the original note were not included. 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 She works 7 PM to [...] deficiency. Recent laboratories from [facility] [place] October 04, 2020 show hemoglobin [...] Father Heart Father bypass surgery, stents, [place] Madyson Ni APRN.CNP [facility] [place], [place] CC: Dr. Jennifer Duran [address] [place] [phone] I spent a total of 30 minutes on the date of the service which included preparing to see the patient, jsgi-rk-yprk patient care, completing clinical documentation, obtaining and/or reviewing separately obtained history, performing a medically appropriate examination, counseling and educating the pat ient/family/caregiver, ordering medications, tests, or procedures, independently interpreting results (not separately reported), and communicating results to the patient/family/caregiver. documented in this [facility] Miscellaneous Notes* Telephone Encounter - Meaghan Ordonez - 02/18/2022 3:14 PM EDT Patient has an appt on 02/23. Would you like labs? documented in this [facility] Evaluation note* Encounter Date Diagnosis Assessment Notes Treatment Notes Treatment Clinical Notes Feb, Iron deficiency anemia (ICD-10 - D50.9) Feb, Elevated liver enzymes (ICD-10 - R74.8) [facility] Other 07-28-2022 Evaluation note* Encounter Date Diagnosis Assessment Notes Treatment Notes Treatment Clinical Notes Dec, Anxiety (ICD-10 - F41.9) [facility] Other 06-24-2022 Hospital Discharge instructions Patient Education [...] develop this condition: Playing sports that include nzxu-nh-xsde contact with others. Having a skin condition [...] Follow these instructions at home: Medicines Take vymw-dfg-gyhqasn and prescription medicines only as told by [...] 06/20/2015 Document Revised: 07/10/2019 Document Reviewed: 06/21/2017 Broadband Voice Patient Education 2020 [employer]. 12/04/2021 13:59:11 Sinusitis, Adult Sinusitis, Adult Sinusitis [...] at home: Medicines Take, use, or apply wwbw-kca-oxmnhuw and prescription medicines only as told by [...] and water are not available, use hand furrier apprentice. Do not smoke. Avoid being around people [...] 05/30/2006 Document Revised: 10/30/2018 Document Reviewed: 10/30/2018 Broadband Voice Patient Education 2020 [employer] 12/04/2021 13:59:10 BMI for Adults BMI [...] height. This can be done either in Lebanese ([place] or metric measurements. Note that charts are available to help you find your BMI quickly and easily without having to do these calculations yourself. To calculate your BMI in Lebanese ([place] measurements, your health care provider will: [...] medical problems. BMI can be measured using Lebanese measurements or metric measurements. To interpret your [...] 02/08/2005 Document Revised: 05/12/2018 Document Reviewed: 04/12/2018 Broadband Voice Patient Education 2020 [employer]. [facility] 05-06-2022 Evaluation note* Encounter Date [...] October, Other 8:28 AM - 8:35 AM [facility] Other 03-01-2022 Evaluation note* Encounter Date Diagnosis Assessment Notes Treatment Notes Treatment Clinical Notes Aug, Cough (ICD-10 - R05) [facility] Other 02-21-2022 Evaluation note* Encounter Date Diagnosis [...] Jul, Other 5:43 PM - 5:48 PM [facility] Other 12-06-2021 Evaluation note* Encounter Date Diagnosis [...] voices that her employer will handle her [facility] paperwork. If she needs a [...] May, Other 4:25 PM - 4:38 PM [facility] Other 11-09-2021 Evaluation note* Encounter Date Diagnosis [...] R63.5) Her TSH is normal at 1.04. [facility] Other 10-07-2019 History general Narrative - Reported* Type Description Date Medical History endometriosis 2012 Medical History Echocardi[place] [facility] [place] [facility] [place] Normal, ejection fraction 60-65% Medical History MRI Brain 03-21-19 [facility] [place] Normal Medical History anxiety Medical History pneumonia 06/2019 Surgical History Cholecystectomy Surgical History gal bladder removed 2008 Surgical History ablation - endometri osis removed off ovaries Dr Lentz 2012 Surgical History ovarian torsion 2014 Surgical History MRI pelvis 2017 Surgical History ovarian cyst removed 06/2018 Hospitalization History see above [facility] Other Consult note Author Jameel Hatfield [facility] April 28, 2022 8:22am Note Date/Time April 28, 2022 8:22am [facility] [address] [place] [address] CONVENTION WORKER Consult Note Signed Patient: Antonia Noyola MR#: [id number] : 1985 Acct:[id number] Age/Sex: 37 / F Adm Date: 2 Loc: Room: 2H4306-9 Type: ADM INOo Attending Dr: Kiko Saenz [...] Last Admin: 04/28/22 04:43 Dose: 10 ml DEPARTMENT HELPER - Exam Physical Exam Vital signs: Temp 97.7 F 04/28/22 04:18 Pulse 95 H 04/28/22 04:18 Resp 16 04/28/22 04:18 BP 136/95 04/28/22 04:18 Pulse Ox 100 04/28/22 04:18 O2 Del Method Room Air 04/28/22 04:18 Constitutional Constitutional: no acute distress Routine Respiratory Exam Respiratory: Absent respiratory distress Routine Abdominal Exam Abdominal: Present soft, normoactive bowel sounds and tenderness; Absent reboundor guarding DEPARTMENT HELPER - Results Laboratory Results - Last 48 hrs. 04/28/22 02:00: Urine Color Yellow, Urine Appearance Cloudy A, Urine pH 6.5, Ur Specific [place] 1.005, Urine Protein Negative, Urine Glucose (UA) [...] Creatinine Clear 132.36, Sodium 137, Potassium 3.7, [id number], Carbon Dioxide 21.1 L, Anion Gap 14.6, [...] % (Auto) 64.6, Lymph % (Auto) 28.9, [place] % (Auto) 4.5, Eos % (Auto) 1.0, Baso % (Auto) 1.0, Neut # (Auto) 5.1, Lymph # (Auto) 2.3, [place] # (Auto) 0.4, Eos # (Auto) 0.1, Baso # (Auto) 0.1, Nucleated RBC % (auto) 0.0, Platelet Estimate Normal, Plt Morphology Comment Normal, RBC Morphology N/A, Polychromasia Slight, Hypochromasia Slight, Poikilocytosis Moderate, Anisocytosis Marked, Tear Drop Cells Slight, Ovalocytes Moderate DEPARTMENT HELPER - A/P (1) Intractable abdominal pain: Code(s): [...] And I suggested she follow-up with her glove sewer at the [facility]. Code(s): N83.202 - Unspecified ovarian cyst, left side Status: Acute Documented By: JAMEEL HATFIELD MD 04/28/22816 Signed By: <Electronically signed by MD JAMEEL HATFIELD> 04/28/22821 [facility] Work Phone: Evaluation + Plan note No data available for this section [facility] Evaluation noteNo assessment information available [facility] Work Phone: Evaluation noteNo InformationNort JumpSeller Other Evaluation note* Diagnosis Iron deficiency anemia due to chronic blood loss- Primary Iron deficiency anemia secondary to blood loss (chronic) [facility] 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 [facility] Diagnosis 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 Cyst of left ovary Other and unspecified ovarian cyst [facility] Diagnosis 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 Cyst of left ovary Other and unspecified ovarian cyst [facility] Diagnosis Iron deficiency anemia due to chronic blood loss- Primary Iron deficiency anemia secondary to blood loss (chronic) [facility] Diagnosis Onset Date Resolution Status Abdominal pain acute Ovarian cyst acute [facility] Work Phone: Evaluation note* Diagnosis Onset Date Resolution Status Abdominal pain acute Endometriosis acute Ovarian cyst acute [facility] Work Phone: Evaluation note* Author Jennifer Duran [facility] Authored July 28, 2023 12:18pm The above note written by __ _Polly Collado____ acting as human recorder, note dictated by Dr. Mcfadden .I performed the above HPI, ROS, and Examination. I formulated and dictated the treatment plan and was present for entire encounter. Jennifer Duran D.O. [facility] Work Phone: Evaluation note* Diagnosis Toothache- Primary Unspecified disorder of the teeth and supporting structures documented in this encounter [facility] note* Diagnosis Onset Date Resolution Status Anxiety acute Tachycardia acute [facility] Work Phone: evaluation note* Diagnosis Cyst of left ovary- Primary Other and unspecified ovarian cyst documented in this encounter [facility] note* Diagnosis Lower abdominal pain Abdominal pain, other specified site [facility] Diagnosis Pelvic pain- Primary Unspecified symptom associated with female genital organs [facility] Diagnosis RLQ abdominal pain- Primary Abdominal pain, right lower quadrant Pelvic joint pain, right [facility] Diagnosis Endometriosis- Primary Endometriosis, site unspecified Preop testing Unspecified pre-operative examination [facility] Diagnosis Endometriosis- Primary Endometriosis, site unspecified Preop testing Unspecified pre-operative examination documented [facility] Diagnosis Endometriosis Endometriosis, site unspecified [facility]* Diagnosis Abdominal pain, right lower quadrant- Primary [facility] Additional Instructions Please arrange a follow-up appointment with your [facility] glove sewer.[facility] Work Phone: Hospital Discharge instructions Additional Instructions Take Motrin and Tylenol as needed for mild to moderate pain. Take oxycodone as prescribed for severe pain. Follow-up with Dr. Ness or Dr. Grayson in the office regarding further treatment with [facility] Work Phone: Hospital Discharge instructions Additional Instructions Take [place] as needed for severe pain, do not drink, drive, operate heavy machinery while taking Continue clindamycin as previously ordered by her dentist Return to emergency room for fever or chills, or dental abscess Follow-[facility] with [facility] and [facility] Work Phone: Hospital Discharge instructionsAmbulatory Orders* Referral to Allergy/Immunology Time Frame: 12/07/23, Location: None [facility] Work Phone: Hospital Discharge instructions* Attachments The following attachments cannot be sent through Care Everywhere. * Pelvic Pain (Lebanese) documented in [facility] SystemInstructionsNot on filedocumented in this encounterProMedisc Health SystemInstructionsNot on filedocumented in this encounterProMedica Health SystemInstructionsNot on filedocumented in this encounterProMedisc Health SystemInstructionsNot on filedocumented in this encounterProJohn [facility]. [facility] SystemInstructionsNot on filedocumented in this encounterProJohn A. [facility] SystemInstructionsNot on filedocumented in this encounterProJohn A. Andrew [facility] Health SystemProgress note No data available for this section [facility] Care Reason for referral (narrative)* Consultation (Routine) - New Request Specialty Diagnoses / Procedures Referred By Gina perez Referred To Contact Multispecialty Diagnoses RLQ abdominal pain Pelvic joint pain, right Davi Marie DO [address] [place] [address] Referral ID Status Reason Start Date Expiration Date V isits Requested Visits Authorized [id number] New Request 03/03/2024 03/28/2025 1 1 * Consultation (Routine) - New Request Specialty Diagnoses / Procedures Referred By Contabram t Referred To Contact CONVENTION WORKER Diagnoses RLQ abdominal pain Pelvic joint pain, right Davi Marie DO [address] [place] [address] Isabell Hodges DO [address] [place] [address] Referral ID Status Reason Start Date Expiration Date V isits Requested Visits Authorized [id number] New Request 03/03/2024 03/28/2025 1 1 [facility] Summary Purpose Family History No Family [...] Contact Procedures ECG Jennifer Moore MD [address] [place] [address] Referral ID Status Reason Start Date Expiration Date V isits Requested Visits Authorized [id number] New Request 02/16/2024 03/12/2025 1 1 Reason appt pt is elsiearmando robi to see whomever can see her first pt needs consult to discuss possible injection for right sided bursitis Diagnosis 1 Greater trochanteric bursitis of right hip (M70.61) Referral Organization [facility] Family Medicin e Protection Referring Provider First Name Jennifer Referring Provider Last Name Wilber Referring Provider Specialty Family Prac kasi Referred Organization [facility] Referred Provider Chad Luna II Referred Address [address] [place], [place],[address] Referred Provider Specialty Orthopedic S urgery Referral Priority Routine General Notes Angelita Trevino 01/12/2023 03:51:47 PM > referral sent p2p. pt understands that she will be contacted to schedule this appt. Reason appt consult for e zia and treatment of continued cough since covid infection Diagnosis 1 Cough (R05) Referral Organization [facility] Family Medicin e Protection Referring Provider First Name Jennifer Referring Provider [...] section and content) DATE CREATED AUTHOR 08/08/2020 [facility] DATE CREATED AUTHOR AUTHOR'S ORGANIZ ATION 05/03/2022 [facility] DATE CREATED AUTHOR AUTHOR'S ORGANIZ ATION 10/19/2022 [facility] DATE CREATED AUTHOR AUTHOR'S ORGANIZ ATION 06/23/2023 [facility] DATE CREATED AUTHOR AUTHOR'S ORGANIZ ATION 09/06/2023 [facility] DATE CREATED AUTHOR AUTHOR'S ORGANIZ ATION 10/21/2023 [facility] EPIC DATE CREATED AUTHOR AUTHOR'S ORGANIZ ATION 11/27/2023 [facility] DATE CREATED AUTHOR AUTHOR'S ORGANIZ ATION 03/07/2024 [facility] DATE CREATED AUTHOR AUTHOR'S ORGANIZ ATION 03/30/2024 [facility] DATE CREATED AUTHOR AUTHOR[facility]S ORGANIZ ATION [facility]/2024 [facility] DATE CREATED AUTHOR AUTHOR'S ORGANIZ ATION 06/11/2024 [facility] DATE CREATED AUTHOR AUTHOR'S ORGANIZ ATION 06/11/2024 [facility] DATE CREATED AUTHOR AUTHOR'S ORGANIZ ATION 06/28/2024 [facility] DATE CREATED AUTHOR AUTHOR'S ORGANIZ ATION 06/29/2024 [facility] DATE CREATED AUTHOR AUTHOR'S ORGANIZ ATION 06/30/2024 [facility] DATE CREATED AUTHOR AUTHOR'S ORGANIZ ATION 07/01/2024 [facility] Care Teams (unrecognized sec tion [...] Amaury Barlow , DO Emergency Provider Active Pantomimist Relationship Specialty Start Date End Date Jennifer Duran, DO [address] [place] [address] PCP - General 11/27/07 Jennifer Duran, DO [address] [place] [address] Referring Family Practice 04/03/19 Avinash Velásquez MD [address] [place] [address] Referring CONVENTION WORKER 11/30/21 Pantomimist Relationship Specialty Start Date End Date Jennifer Duran, DO [address] [place] [address] PCP - General 11/27/07 Jennifer Duran, DO [address] [place] [address] Referring Family Medicine 04/03/19 Avinash Velásquez MD [address] [place] [address] Referring CONVENTION WORKER 11/30/21 Pantomimist Relationship Specialty Start Date End Date Jennifer Duran, DO [address] [place] [address] PCP - General 11/27/07 Jennifer Duran, DO [address] [place] [address] Referring Family Medicine 04/03/19 Avinash Velásquez MD [address] [place] [address] Referring CONVENTION WORKER 11/30/21 Pantomimist Relationship Specialty Start Date End Date Jennifer Duran, DO [address] [place] [address] PCP - General 11/27/07 Jennifer Duran, DO [address] [place] [address] Referring Family Medicine 04/03/19 Avinash Velásquez MD [address] [place] [address] Referring CONVENTION WORKER 11/30/21 Pantomimist Relationship Specialty Start Date End Date Jennifer Duran, DO [address] [place] [address] PCP - General 11/27/07 Jennifer Duran, DO [address] [place] [address] Referring Family Medicine 04/03/19 Avinash Velásquez MD [address] [place] [address] Referring CONVENTION WORKER 11/30/21 Pantomimist Relationship Specialty Start Date End Date Jennifer Duran, DO [address] [place] [address] PCP - General 11/27/07 Jennifer Duran, DO [address] [place] [address] Referring Family Medicine 04/03/19 Avinash Velásquez MD [address] [place] [address] Referring CONVENTION WORKER 11/30/21 Team Status: Active Member Role Status Dates Jennifer Duran , DO Primary Care Provider Active Yevgeniy Cabrera Jr, MD Emergency Provider Active Kiko Saenz , DO Admit Provider, Attending Provider Active Pantomimist Relationship Specialty Start Date End Date Jennifer Duran, DO [address] [place] [address] PCP - General 11/27/07 Jennifer Duran, DO [address] [place] [address] Referring Family Medicine 04/03/19 Avinash Velásquez MD [address] [address] [address] [place] [address] Referring CONVENTION WORKER 11/30/21 Team Status: Inactive Member Role [...] October 18, 2023 End: October 18, 2023 Pantomimist Relationship Specialty Start Date End Date Jennifer Duran DO [address] [place] [facility] [place] [address] PCP - General Family Medicine 09/14/23 Team [...] March 23, 2024 End: March 23, 2024 Pantomimist Relationship Specialty Start Date End Date No Pcp, [place] [address] PCP - General Family Medicine 03/07/24 Pantomimist Relationship Specialty Start Date End Date No Pcp, [place] [address] PCP - General Family Medicine 03/07/24 Pantomimist Relationship Specialty Start Date End Date No Pcp, [place] [address] PCP - General Family Medicine 03/07/24 Pantomimist Relationship Specialty Start Date End Date No Pcp, [place] [address] PCP - General Family Medicine 04/05/24 Pantomimist Relationship Specialty Start Date End Date No Pcp, [place] [address] PCP - General Family Medicine 06/05/24 Pantomimist Relationship Specialty Start Date End Date No Pcp, [place] [address] PCP - General Family Medicine 06/05/24 Pantomimist Relationship Specialty Start Date End Date No Pcp, [place] [address] PCP - General Family Medicine 06/05/24 Goals [...] SUCROSE INJECTION PER 1 MG Madyson Ni, LEAD BURNER APPRENTICE.[address] [place] [address] Johny Treat [place] [address] [place] [place] [address] Referral ID Status Reason Start Date Expiration Date V isits Requested Visits Authorized [id number] Authorized 03/10/2022 06/12/2022 99 99 Reason Comments [...] or prosecute any alcohol or drug abuse patient.[facility] HospitalIn the event this information is protected by the Federal Confidentiality of Alcohol and Drug Abuse Patient Records regulations: The Federal rules restrict any use of the information to criminally investigate or prosecute any alcohol or drug abuse patient.[facility] HospitalIn the event this information is protected by the Federal Confidentiality of Alcohol and Drug Abuse Patient Records regulations: The Federal rules restrict any use of the information to criminally investigate or prosecute any alcohol or drug abuse patient.[facility] HospitalIn the event this information is protected by the Federal Confidentiality of Alcohol and Drug Abuse Patient Records regulations: The Federal rules restrict any use of the information to criminally investigate or prosecute any alcohol or drug abuse patient.[facility] HospitalIn the event this information is protected by the Federal Confidentiality of Alcohol and Drug Abuse Patient Records regulations: The Federal rules restrict any use of the information to criminally investigate or prosecute any alcohol or drug abuse patient.[facility] HospitalIn the event this information is protected by the Federal Confidentiality of Alcohol and Drug Abuse Patient Records regulations: The Federal rules restrict any use of the information to criminally investigate or prosecute any alcohol or drug abuse patient.[facility] HospitalIn the event this information is protected by the Federal Confidentiality of Alcohol and Drug Abuse Patient Records regulations: The Federal rules restrict any use of the information to criminally investigate or prosecute any alcohol or drug abuse patient.[facility] Ordered Prescriptions (unrec ognized section and [...] 50 mg, Oral, ONCE, 1 dose, On [place] 01/22/24 at 1230 1230 (Given - Provid [...] Una Levy RN)[id number] (Stopped - Provider: Una Lvey RN) Sodium chloride 0.9% IV solution 75 [...] BE BASED ON THE PRIMARY CLINICAL RECORDS. [facility]. provides no warranty or guarantee of the accuracy or completeness of information in this document.
--- NOTE | 2024-07-11 01:47 | ED_ITS ---
HPI HPI - General Adult General Chief complaint: Abdominal Pain Stated complaint: ABDOMINAL PAIN Time Seen by Provider: 07/11/24 01:17 Source: patient Mode of arrival: walk-in Limitations: no limitations History of Present Illness HPI narrative: Patient presents to the emergency department with chief complaint of chronic right lower quadrant abdominal pain. She states she has a history of endometriosis and underwent total abdominal hysterectomy and bilateral salpingo- oophorectomy on April 06 last year at the [facility]. She states shortly thereafter she had the recurrence of the same kind of pain that she is to have with endometriosis prior to the surgery. 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 She continues to have pain for which she takes Toradol and Tylenol. She was seen in this ED earlier yesterday for the same pain and was treated with injectable Dilaudid. She does not report any change in the quality or location of her pain. Related Data Home Medications ?Medication ?Instructions ?Recorded ?Confirmed alprazolam 0.25 mg tablet 0.25 mg PO Q8H PRN anxiety 09/20/23 07/09/24 citalopram 20 mg tablet (Celexa) 20 mg PO DAILY 09/20/23 07/09/24 atenolol 25 mg tablet 25 mg PO Q24H 02/11/24 07/09/24 acetaminophen 500 mg tablet mg 07/09/24 gabapentin 300 mg capsule mg 07/09/24 ibuprofen 800 mg tablet mg 07/09/24 Previous Rx's ?Medication ?Instructions ?Recorded ketorolac 10 mg tablet 10 mg PO TID PRN pain #10 tabs 10/22/23 ketorolac 10 mg tablet 10 mg PO Q8H PRN pain 1 day #14 06/27/24 tabs ondansetron 4 mg disintegrating 4 mg PO DAILY PRN nausea and 06/27/24 tablet vomiting #15 tabs gabapentin 300 mg capsule 300 mg PO TID PRN pain #30 caps 07/11/24 Allergies Allergy/AdvReac Type Severity Reaction Status Date / Time morphine Allergy Severe itching Verified 07/11/24 01:23 prochlorperazine (From AdvReac Mild Anxiety Verified 07/11/24 01:23 Compazine) Opioid HPI Opioid Management Most Recent Opioid Data: Last Pain Scale 9 04/12/24 21:24 04/12/24 Last ORT Total Score 2 09/20/23 05:45 09/20/23 Last ORT Risk Category Low Risk 09/20/23 05:45 09/20/23 Review of Systems ROS Status of ROS 10 or more systems reviewed and unremark able except as noted in history and below [facility] Medical History Ovarian cyst ?N83.209 - Unspecified ovarian cyst, unspecified side (ICD-10) Endometriosis ?N80.9 - Endometriosis, unspecified (ICD-10) LLQ abdominal pain ?R10.32 - Left lower quadrant pain (ICD-10) Complex cyst of left ovary ?N83.292 - Other ovarian cyst, left side (ICD-10) Toothache ?K08.89 - Other specified disorders of teeth and supporting structures (ICD- 10) Surgical History History of removal of cyst ?Z98.890 - Other specified postprocedural states (ICD-10) History of cholecystectomy ?Z90.49 - Acquired absence of other specified parts of digestive tract (ICD- 10) Family History Family/Other No problems noted. Father Family history of CHF (congestive heart failure) Family history of COPD (chronic obstructive pulmonary disease) Family history of diabetes mellitus Family history of hypertension Family history of myocardial infarction Mother Family history of hypertension Other Family history of cancer Social History Within the past year, how often did you have a drink containing alcohol: monthly or less Within the past year, how many standard drinks containing alcohol did you have on a typical day: 1 or 2 Within the past year, how often did you have six or more drinks on one occasion: never Total score: 0 Score interpretation: A score less than 3 is consistent with normal alcohol consumption. Smoking status: Never smoker Non-prescribed substance use: denies use Highest level of school completed/degree received: Associate degree: academic program Are you now , , , , never or living with a partner: In a typical week, how many times do you talk on the telephone with family, friends, or neighbors: 3 or more times per week How often do you get together with friends or relatives: 3 or more times per week Little interest or pleasure in doing things: not at all Feeling down, depressed, or hopeless: not at all Feel stressed/tense/nervous/anxious/difficulty sleeping: not at all Do you think of yourself as: straight/heterosexual Gender Identity: female Exam Narrative Exam Narrative: Patient has a slightly elevated blood pressure of 155/98 and a heart rate of 101 which is regular. Afebrile. HEENT exam is normal to inspection. Neck is supple. Lung sounds are clear to auscultation bilaterally. Heart has regular rate and rhythm. Abdomen is protuberant and soft. Bowel sounds are hypoactive. She localizes tenderness only in the right lower quadrant and does not have guarding or peritoneal signs. There is no fluid wave or organomegaly. Extremities warm and dry. She does not have lower extremity edema. Constitutional Vital Signs, click to edit/add: Last Vital Signs Temp 97.7 F 07/11/24 01:19 Pulse 101 H 07/11/24 01:19 Resp 18 07/11/24 01:19 BP 155/98 H 07/11/24 01:19 Pulse Ox 98 07/11/24 01:19 Course Vital Signs Vital signs: Vital Signs Temperature 97.7 F 07/11/24 01:19 Pulse Rate 101 H 07/11/24 01:19 Respiratory Rate 18 07/11/24 01:19 Blood Pressure 155/98 H 07/11/24 01:19 Pulse Oximetry 98 07/11/24 01:19 Temperature 97.7 F 07/11/24 01:19 Pulse Rate 101 H 07/11/24 01:19 Respiratory Rate 18 07/11/24 01:19 Blood Pressure 155/98 H 07/11/24 01:19 Pulse Oximetry 98 07/11/24 01:19 Medical Decision Making MDM Narrative Medical decision making narrative: Patient presents with continued chronic abdominal pain in the same location that is felt to be due to endometriosis. She has been visiting emergency department frequently for this pain. On recommended treating with gabapentin which she states she already has. She was apparently prescribed gabapentin on June 10 and filled the prescription 2 weeks later. It was for 30 tablets and she states she still has a quarter bottle left. I am writing her prescription for another 30 gabapentin 300 mg tablets that she can take up to 3 times a day. In the ED she will be administered 1 [place] tablet. She is advised to contact her PCP and get a pain management referral for further pain management needs until she can get definitive surgical treatment for her condition. Discharge Plan Discharge Chief Complaint: Abdominal Pain Clinical Impression: Abdominal pain, chronic, right lower quadrant Patient Disposition: Home, Self-Care Time of Disposition Decision: 01:44 Condition: Fair Mode of Transportation: Private Vehicle Prescriptions / Home Meds: New gabapentin 300 mg capsule 300 mg PO TID PRN (Reason: pain) Qty: 30 0RF No Action ketorolac 10 mg tablet 10 mg PO TID PRN (Reason: pain) Qty: 10 0RF ketorolac 10 mg tablet 10 mg PO Q8H PRN (Reason: pain) 1 Days Qty: 14 0RF ondansetron 4 mg tablet,disintegrating 4 mg PO DAILY PRN (Reason: nausea and vomiting) Qty: 15 0RF ibuprofen 800 mg tablet acetaminophen 500 mg tablet gabapentin 300 mg capsule alprazolam 0.25 mg tablet 0.25 mg PO Q8H PRN (Reason: anxiety) citalopram [Celexa] 20 mg tablet 20 mg PO DAILY atenolol 25 mg tablet 25 mg PO Q24H Print Language: Algerian Instructions: Chronic Abdominal Pain (DC) Additional Instructions: Contact your PCP in the morning to arrange for further pain medication needs. Please get a referral to pain management from your PCP for ongoing pain medication needs until you can get your surgery scheduled. Return to the ED for worsening symptoms. Referrals: JENNIFER DURAN [Primary Care Provider] - As soon as possible
[2024-07-11] MEDS: HYDROCODONE/ACET 5-325 MG TABLET 1 TAB PO (01:54)
--- NOTE | 2024-07-11 01:58 | PC.NURSE ---
Pt presents to ED for second night in a row for the same LLQ abd pain that is chronic for pt. Pt had called ED 20 minutes prior to arrival, asking a question about a prescription dr auguste had written the night before, when Aretha MONROE began pulling up the chart pt hung up the phone mid sentence after learning Dr Auguste was not here.(and had not even written a script) Pt showed up at ED 20 minutes later with same complaint of last night. When asked what question she had that she had called about a little bit ago, pt denied calling. I checked the caller id and pt's chart and pt had in fact called. Pt continued to deny doing this. Pt stated the phone number in the chart was not correct, so this RN tried calling the number back since this didn't make sense, and it went to pt's voicemail. Explained to pt that it seems odd that she would not be truthful about this. Upon leaving ED, registration verified that this number was in fact the correct one. Pt has known history of substance abuse. Educated pt that the ED is not the proper place to get pain medications for chronic problems and that she should follow up with pain management.
== END 2024-07-11 02:07 | disposition home or self-care (01) ==
PROVIDERS: Emergency Provider Emergency Medicine; PCP Family Medicine
DX: R10.31 Right lower quadrant pain (principal); G89.29 Other chronic pain; Z90.710 Acquired absence of both cervix and uterus; Z90.49 Acquired absence of other specified parts of digestive tract
CPT/HCPCS: 99283

== ENCOUNTER 2024-08-06 14:06 | Emergency (ER) | payer SELFPAY ==
[2024-08-06 14:15] VITALS: BP 114/82; PULSE 102; TEMP 37.1; O2SAT 100; BMI 30.8
--- NOTE | 2024-08-06 15:48 | ED_ITS ---
HPI - Abdominal Pain General Chief Complaint: Abdominal Pain Stated Complaint: ABDOMINAL PAIN Time Seen by Provider: 08/06/24 15:37 Source: patient Mode of arrival: walk-in Limitations: no limitations History of Present Illness HPI narrative: The patient have a chronic right lower quadrant pain apparently was just evaluated yesterday in [facility] with a CAT scan done in addition to provide with the Percocets for a whole day yesterday The patient is coming to us with a right lower quadrant pain complaining severe pain not radiating not associated with any nausea vomiting or any fever Related Data Home Medications ?Medication ?Instructions ?Recorded ?Confirmed alprazolam 0.25 mg tablet 0.25 mg PO Q8H PRN anxiety 09/20/23 08/06/24 citalopram 20 mg tablet (Celexa) 20 mg PO DAILY 09/20/23 08/06/24 atenolol 25 mg tablet 25 mg PO Q24H 02/11/24 08/06/24 acetaminophen 500 mg tablet 500 mg PO Q6H PRN pain 07/09/24 08/06/24 gabapentin 300 mg capsule 300 mg PO TID 07/09/24 08/06/24 ibuprofen 800 mg tablet 800 mg PO Q8H PRN pain 07/09/24 08/06/24 Previous Rx's ?Medication ?Instructions ?Recorded ketorolac 10 mg tablet 10 mg PO TID PRN pain #10 tabs 10/22/23 ondansetron 4 mg disintegrating 4 mg PO DAILY PRN nausea and 06/27/24 tablet vomiting #15 tabs Allergies Allergy/AdvReac Type Severity Reaction Status Date / Time morphine Allergy Severe itching Verified 07/11/24 01:23 prochlorperazine (From AdvReac Mild Anxiety Verified 07/11/24 01:23 Compazine) Review of Systems ROS Status of ROS 10 or more systems reviewed and unremark able except as noted in history and below [facility] Medical History Ovarian cyst ?N83.209 - Unspecified ovarian cyst, unspecified side (ICD-10) Endometriosis ?N80.9 - Endometriosis, unspecified (ICD-10) LLQ abdominal pain ?R10.32 - Left lower quadrant pain (ICD-10) Complex cyst of left ovary ?N83.292 - Other ovarian cyst, left side (ICD-10) Toothache ?K08.89 - Other specified disorders of teeth and supporting structures (ICD- 10) Surgical History History of removal of cyst ?Z98.890 - Other specified postprocedural states (ICD-10) History of cholecystectomy ?Z90.49 - Acquired absence of other specified parts of digestive tract (ICD- 10) Family History Family/Other No problems noted. Father Family history of CHF (congestive heart failure) Family history of COPD (chronic obstructive pulmonary disease) Family history of diabetes mellitus Family history of hypertension Family history of myocardial infarction Mother Family history of hypertension Other Family history of cancer Social History Within the past year, how often did you have a drink containing alcohol: monthly or less Within the past year, how many standard drinks containing alcohol did you have on a typical day: 1 or 2 Within the past year, how often did you have six or more drinks on one occasion: never Total score: 0 Score interpretation: A score less than 3 is consistent with normal alcohol consumption. Smoking status: Never smoker Non-prescribed substance use: denies use Highest level of school completed/degree received: Associate degree: academic program Are you now , , , , never or living with a partner: In a typical week, how many times do you talk on the telephone with family, friends, or neighbors: 3 or more times per week How often do you get together with friends or relatives: 3 or more times per week Little interest or pleasure in doing things: not at all Feeling down, depressed, or hopeless: not at all Feel stressed/tense/nervous/anxious/difficulty sleeping: not at all Do you think of yourself as: straight/heterosexual Gender Identity: female Exam Narrative Exam Narrative: Nurses notes and vital signs reviewed and patient is not hypoxic. General: Well-appearing and in no apparent distress. Skin: Warm, dry, no pallor noted. No rash. Head: Normocephalic, atraumatic. Neck: Supple, non-tender. Eye: Pupils are equal, round and EOMI. No scleral icterus. Ears, Nose, Mouth, and Throat: TM are clear, no nasal mucosal hypertrophy. Oral mucosa is moist, no posterior oropharynx erythema, uvula is mid-line Cardiovascular: Regular Rate and Rhythm without murmur, gallop or rub. Respiratory: No accessory muscle use or respiratory distress. Lungs are clear to auscultation, no wheezing, rales or rhonchi Chest Wall: no tenderness Back: No midline thoracic or lumbar vertebral tenderness. No CVA tenderness Musculoskeletal: normal ROM, no calf or popliteal tenderness, no lower extremity edema/swelling GI: Abdomen is soft, non-distended. Right lower quadrant tenderness Constitutional Vital Signs, click to edit/add: Last Vital Signs Temp 98.8 F 08/06/24 14:15 Pulse 102 H 08/06/24 14:15 Resp 18 08/06/24 14:15 BP 114/82 08/06/24 14:15 Pulse Ox 100 08/06/24 14:15 O2 Del Method Room Air 08/06/24 14:15 Course Vital Signs Vital signs: Vital Signs Temperature 98.8 F 08/06/24 14:15 Pulse Rate 102 H 08/06/24 14:15 Respiratory Rate 18 08/06/24 14:15 Blood Pressure 114/82 08/06/24 14:15 Pulse Oximetry 100 08/06/24 14:15 Oxygen Delivery Method Room Air 08/06/24 14:15 Temperature 98.8 F 08/06/24 14:15 Pulse Rate 102 H 08/06/24 14:15 Respiratory Rate 18 08/06/24 14:15 Blood Pressure 114/82 08/06/24 14:15 Pulse Oximetry 100 08/06/24 14:15 Oxygen Delivery Method Room Air 08/06/24 14:15 MDM - Abdominal Pain MDM Narrative Medical decision making narrative: The patient does not have any symptoms of possible appendicitis at the moment , her workup done 2 days ago did not show any acute pathology and the patient presentation right now does not show anything more than a chronic right lower quadrant pain The patient was discharged with 1 dose of Dilaudid instructed that she need to follow-up with the pain management as outpatient, and I am trying to help her right now she have allergy to multiple medication and she is taking Toradol on the clock I did explain to the patient the importance of pain management in addition to follow-up with her [employer] doctor for further evaluation of her endometriosis pain that she was diagnosed with especially that she already had hysterectomy The patient is to follow up with primary care physician in next 2-3 days or to return to the emergency department should any of the signs or symptoms worsen or new symptoms develop. The patient agrees with the following Diagnosis and Treatment plan and the patient will be discharged home. Discharge Plan Discharge Chief Complaint: Abdominal Pain Clinical Impression: Abdominal pain Patient Disposition: Home, Self-Care Time of Disposition Decision: 15:49 Condition: Good Prescriptions / Home Meds: No Action ketorolac 10 mg tablet 10 mg PO TID PRN (Reason: pain) Qty: 10 0RF ondansetron 4 mg tablet,disintegrating 4 mg PO DAILY PRN (Reason: nausea and vomiting) Qty: 15 0RF ibuprofen 800 mg tablet 800 mg PO Q8H PRN (Reason: pain) acetaminophen 500 mg tablet 500 mg PO Q6H PRN (Reason: pain) gabapentin 300 mg capsule 300 mg PO TID alprazolam 0.25 mg tablet 0.25 mg PO Q8H PRN (Reason: anxiety) citalopram [Celexa] 20 mg tablet 20 mg PO DAILY atenolol 25 mg tablet 25 mg PO Q24H Print Language: Turkish Instructions: Abdominal Pain (ED) Referrals: Physician,Non-Staff, MD [Primary Care Provider] - 1 week
[2024-08-06] MEDS: HYDROMORPHONE HCL 0.5 MG/0.5 ML SYRINGE IM (15:55)
== END 2024-08-06 16:06 | disposition home or self-care (01) ==
PROVIDERS: Emergency Provider Emergency Medicine
DX: R10.31 Right lower quadrant pain (principal); Z90.49 Acquired absence of other specified parts of digestive tract
CPT/HCPCS: 96372; 99284; J1171

== ENCOUNTER 2024-08-11 03:02 | Emergency (ER) | payer SELFPAY ==
--- OUTSIDE RECORDS SUMMARY | 2024-08-11 03:12 | XMS_ITS | CCD ---
Author Organization [facility] Care Team Providers Care Television Journalist Name Role Phone DO Jennifer Duran Primary Care Provider [phone] DO Augustus Santiago Attending Provider DO Amaury Barlow Emergency Provider [phone] Jennifer Druan Primary Care Physician [phone] Jennifer Duran Unavailable DO Jennifer Duran Primary Care Provider DO Jennifer Duran Attending Provider [phone] Jennifer Duran DO Primary Care Provider [phone] Jennifer Duran DO Unavailable [phone] Didier BARNETT, Penola P Unavailable Jennifer Duran DO Primary Care Provider [phone] Jennifer Duran DO Unavailable [phone] DO Jennifer Duran Primary Care Provider DO Jennifer Duran Attending Provider [phone] MD Yevgeniy Cabrera Jr Emergency Provider DO Kiko Saenz Admit Provider DO Kiko Saenz Attending Provider Jennifer Duran DO Primary Care Provider Jennifer Duran DO Unavailable [phone] Didier BARNETT, Penola P Unavailable [phone] JENNIFER DURAN Primary Care Unavailable MADYSON NI Referring Unavailable MADYSON NI Referring Unavailable JENNIFER DURAN Primary Care Unavailable MADYSON NI Attending Unavailable JENNIFER DURAN Referring Unavailable JENNIFER DURAN Primary Care Unavailable SABA REYNOLDS Referring Unavailable JENNIFER DURAN Primary Care Unavailable BELKIS SANDOVAL Admitting Unavailable DR JENNIFER DURAN Primary Care Unavailable REINECK, DR JASMIN Rosenbaum Consulting UnavailBELKIS Blanco Attending Unavailable KIMMIE, DR AUBREY Varghese Consulting Unavailable BELKIS SANDOVAL Consulting Unavailable DO Jennifer Duran Primary Care Provider DO Elier bacon Emergency Provider DO Ming Childress Emergency Provider MD Megan Garcia Admit Provider MD Megan Muniz Attending Provider DO Kiko Saenz Other Provider MD Christi Aquino Attending Provider [phone] DO Jaime Aleman Attending Provider LLC, GENERIC Primary Care Physician Unavailab DO Jennifer Rm Primary Care Provider [phone] [facility], DO Elier Leos Emergency Provider [phone] DO Jaime Aleman Attending Provider [phone] DO Ming Childress Emergency Provider UnavaMD Megan Lira Admit Provider MD Christi Aquino Attending Provider Visctigre, DO Hoover Other Provider NO FAMILY, PHYSICIAN Primary Care Provider Unava joe SEN MD, EVGENY Attending Unavailable JENNIFER DURAN [facility] [phone] NONE, XXXX Primary Care Physician Unavailab DESTINI Sheehan Attending Unavailable TARUN BRADEN Attending Unavailable Jennifer Duran DO Primary Care Provider Unavail able DO Jennifer Duran Primary Care Provider [phone] CATY Corbett Emergency Provider [phone] DO Jennifer Duran Attending Provider Jennifer Duran Primary Care Unavailable Megan Muniz Admitting Unavailable Kiko Saenz Consulting Unavailable Christi Aquino Attending Unavailable Imani Corbett Admitting Unavailable Jennifer Duran Primary Care Unavailable Imani Corbett Attending Unavailable Elier Jackson Attending Unavailable Manuel, Elier M Admitting Unavailable NO FAMILY, PHYSICIAN Primary Care Unavailable Wilber, Jennifer Primary Care Unavailable Ming Childress Attending Unavailable Ming Childress Admitting Unavailable Wilber, Jennifer Primary Care Unavailable Wilber, Jennifer Attending Unavailable Wilber, Jennifer Admitting Unavailable Wilber, Jennifer Primary Care Unavailable Kuns - CHC, Jaime P Attending Unavailable Kuns - CHC, Jaime P Admitting Unavailable Tuarleen, Elier M Attending Unavailable Wilber, Jennifer Primary Care Unavailable Tuarleen, Elier M Admitting Unavailable Unavailable Primary Care Provider Unavailabl e Unavailable Primary Care Provider Unavailabl e ADIEL APARICIO [...] NO PCP, NO PCP Primary Care Unavailable Ritesh Heath Attending Unavailable Konstantin Penny Attending Unavailable Ivana Ritesh SEbenezer Attending Unavailable Jignesh Dumont Attending Unavailable Ritesh Heath Attending Unavailable DO Jordyn Willett Attending Unavailable Ritesh Heath SEbenezer Attending Unavailable Provider, None Primary Care Unavailable Eran Hill Attending Unavailable Provider, None Primary Care Unavailable Eran Hill Attending Unavailable Provider, None Primary Care Unavailable Jasmyn Magana Attending Unavailable Provider, None Primary Care Unavailable Gustavo Lara Attending Unavailab Gustavo Garcia Admitting Unavailab SHALONDA Reyes Attending Unavailable RANDEE RICHARDSON Attending Unavailable JENNIFER DURAN Primary Care Unavailable EREN CAMEJO Attending Unavailable ROSE HARDY Attending Unavailable ROSE HARDY Attending Unavailable JENNIFER DURAN Primary Care Unavailable EREN CAMEJO Attending Unavailable JENNIFER MOORE Attending Unavailable KONSTANTIN JAIN Attending Unavailable ASHLEY DELCID Attending Unavailable DAVI RIVAS Attending Unavailable DONYA ROMANO Attending Unavailable NO PCP, NO PCP Primary Care Unavailable SHANI BAGLEYO Attending Unavailable TARIK MAYER D Attending Unavailable TARIK MAYER D Referring Unavailable NO PCP, NO PCP Primary Care Unavailable KARCHIVAN WAYNEHEL D Attending Unavailable KARCHNER, TARIK D Referring Unavailable NO PCP, NO PCP Primary Care Unavailable KARCHNER, TARIK D Attending Unavailable KARCHROSANA, TARIK D Referring Unavailable NO PCP, NO PCP Primary Care Unavailable NO PCP, NO PCP Primary Care Unavailable GUSTAVO DAVIES Attending Unavailab le NEVERAUSKADebbie, GUSTAVO P Attending Unavailab le NEVERAUSKAS, GUSTAVO P Referring Unavailab le NO PCP, NO PCP Primary Care Unavailable NO PCP, NO PCP Primary Care Unavailable JIMENA FARMER Attending Unavailable NO PCP, NO PCP Primary Care Unavailable TYRONE CHENG Attending Unavailable NO PCP, NO PCP Primary Care Unavailable ROSE WILSON Attending Unavailable NO PCP, NO PCP Primary Care Unavailable TYRONE CHENG Attending Unavailable NO PCP, NO PCP Primary Care Unavailable ELAYNE ALEXANDER Attending Unavailable NO PCP, NO PCP Primary Care Unavailable JARON ROA Attending Unavailable NO PCP, NO PCP Primary Care Unavailable ELAYNE ALEXANDER Attending Unavailable NO PCP, NO PCP Primary Care Unavailable JENNIFER FIGUEROA Attending Unavailable NO PCP, NO PCP Primary Care Unavailable JIMENA ARANA Attending Unavailable Hamehnaz, Neha H Attending Unavailable Jordyn Willett Attending Unavailable Dimitri Vuong Attending Unavailable Dimitri Vuong Attending Unavailable Brielle, Astrit H Attending Unavailable Allergies Allergy Classification Reported Allergen(s) Allergy Type Date of Onset Reaction(s) Facility (20 sources) Morphine; Translations: [MORPHINE] Drug Allergy 06-20-19 Other: See Comments, Itching (finding), Itching, Hives [facility] (19 sources) Atenolol Drug Allergy 04-18-20 [facility] (6 sources) seasoninig Propensity to adverse reactions Unknown Wishdates Other (1 source) Morphine Drug Allergy 07-28-19 [facility] (18 sources) Seasonal allergy Propensity to adverse reactions 04-18-20 Unknown, Watery Eye [facility] (20 sources) Prochlorperazine; Translations: [prochlorperazine ] Drug Allergy 05-25-20 Feeling nervous (finding), Anxiety [facility] (1 source) Morphine Drug Allergy 04-30-20 [facility] (4 sources) Atenolol Propensity to adverse reactions to drug 04-18-20 [facility] (4 sources) Phenothiazine Propensity to adverse reactions to drug 05-25-20 Anxiety, Itching [facility] (4 sources) Octacosanol Propensity to adverse reactions to drug 04-18-20 [facility] (4 sources) No Known Medication Allergies; Translations: [No Known Medication Allergies] Propensity to adverse reactions (disorder) [facility] Repository Medications Current Medications Medication Drug Class(es) Dates Sig (Normalized) Sig (Original) acetaminophen 500 mg oral tablet (3 sources) Start: 04-06-2024 take 2 tablets by mouth every eight hours acetaminophen (TYLENOL EXTRA STRENGTH) 500 mg tablet Take 2 tablets (1,000 mg total) by mouth every 8 (eight) hours. 60 tablet 04/06/2024 Active acetaminophen 325 mg / HYDROcodone bitartrate 5 mg oral tablet (20 sources) Opioid Agonist Start: 07-12-2024 This order is for a take home starter pack of medication. Please document Furnish to patient on the MAR. Start: 03-03-2024 End: 03-03-2024 1 tablet, Oral, ONCE, 1 dose , On 03/03/24 at 1615 Start: 02-11-2024 End: 07-17-2024 take 1 tablet by mouth every six hours as needed for pain hydroCODone-acetaminophen 5-325 MG tablet Indications: Pelvic and perineal pain , Endometriosis , Ovarian remnant syndrome Take 1 tablet by mouth every 6 hours as needed for Severe Pain or Moderate Pain for up to 3 days. 12 tablet 07/14/2024 Active Start: 11-08-2023 End: 01-19-2024 take 1 [...] 12/04/21 Status: Ordered Start: 12-04-2021 End: 09-14-2023 alprazolam 0.25 mg [...] day(s), # 250 mL, Refills(s) 0, Pharmacy: [facility]/pharmacy #[id number], 166, cm, 12/04/21 12:54:00 [...] for 7 day(s), 14 tab(s), Refill(s) 0, [facility]/pharmacy #[id number], 165.1, cm, 02/13/24 0:28:00 [...] / zinc oxide 40 mg oral tablet (5 sources) Vitamin C take 1 tablet by [...] take 1 tablet by mouth once daily Atenolol 25 MG tablet Take 1 tablet by mouth daily. 01/19/2024 Active Start: 10-20-2020 End: 03-10-2022 atenolol [...] once daily. clindamycin 300 mg oral capsule (6 sources) Lincosamide Antibacterial Start: 02-13-2024 clindamycin 300 MG capsule 02/13/2024 Active Start: 11-08-2023 End: 11-18-2023 take 1 capsule by mouth four times daily clindamycin (CLEOCIN) 300 MG capsule Take 1 capsule by mouth 4 times daily for 10 days 40 capsule 0 11/08/2023 11/18/2023 Active cyclobenzaprine hydrochloride 10 mg oral tablet (1 source) Muscle Relaxant Start: 07-12-2024 End: 07-22-2024 take 1 tablet by mouth three times daily as needed for muscle spasms cyclobenzaprine (FLEXERIL) 10 MG tablet Take 1 tablet by mouth 3 times daily as needed for Muscle spasms 21 tablet 07/12/2024 07/22/2024 Active diflunisal 500 mg oral tablet (9 sources) Nonsteroidal Anti-inflammatory Drug Start: 09-26-2023 take 1 tablet by mouth every twelve hours diflunisal 500 mg Tab 500 mg = 1 tab(s), Oral, q12hr, # 20 tab(s), Refills(s) 0, Pharmacy: [facility]/pharmacy #[id number], 165, cm, 09/26/23 14:18:00 EDT, Height/Length Dosing, 81.2, kg, 09/26/23 14:18:00 EDT, Weight Dosing Start Date: 09/26/23 Status: Ordered docusate sodium 50 mg / sennosides, snf 8.6 mg oral tablet (3 sources) Start: 04-06-2024 take 1 tablet by mouth in the morning sennosides-docusate sodium (SENNA WITH DOCUSATE SODIUM) 8.6-50 mg Take 1 tablet by mouth in the morning and 1 tablet before bedtime. 60 tablet 04/06/2024 Active doxycycline hyclate 100 mg oral capsule (17 sources) Tetracycline-clas s Drug Start: 04-11-2023 take 1 capsule by mouth every twelve hours Doxycycline Hyclate 100 MG 1 capsule Orally Twice a day for 10 days Mar, Active Start: 06-20-2019 End: 04-28-2022 take 100 mg by mouth twice daily Doxycycline Monohydrate Discontinued 100 MG PO Twice daily June 20, 2019 1:00am April 28, 2022 1:50am 84 hr estradiol 0.12479 mg/hr / norethindrone acetate 0.65237 mg/hr transdermal system (3 sources) Estrogen Start: 04-09-2024 estradiol-norethindrone acet (COMBIPATCH) [...] 2019 8:08pm fluconazole 150 mg oral tablet (5 sources) Azole Antifungal Start: 01-30-2024 take 1 [...] day(s), # 20 tab(s), Refills(s) 0, Pharmacy: [facility]/pharmacy #[id number], 165, cm, 09/26/23 14:18:00 EDT, Height/Length Dosing, 81.2, kg, 09/26/23 14:18:00 EDT, Weight Dosing Start Date: 09/26/23 Stop Date: 10/01/23 Status: Ordered ibuprofen 800 mg oral tablet (18 sources) Nonsteroidal Anti-inflammatory Drug Start: 04-06-2024 take [...] for 10 day(s), 22 gm, Refill(s) 0, [facility]/pharmacy #[id number], 166, cm, 12/04/21 12:54:00 EDT, Height/Length Dosing, 84, kg, 12/04/21 12:54:00 EDT, Weight Dosing Start Date: 12/04/21 Stop Date: 12/14/21 Status: Ordered nabumetone 750 mg oral tablet (5 sources) Nonsteroidal Anti-inflammatory Drug Start: take 1 tablet by mouth every twelve hours as needed for pain nabumetone 750 MG tablet take 1 tablet by mouth every 12 hours as needed for pain 05/08/2023 Active naloxone hydrochloride 40 mg/ml nasal spray (5 sources) Opioid Antagonist Start: End: naloxone 4 MG/0.1ML 1 spray by Nasal route once for 1 dose. [place] into the nose as directed. Call 911. If no response in 2 minutes use a new nasal spray in other nostril. Repeat until help arrives. 1 Each 02/16/2024 Active naloxone (NARCAN) 4 mg/actuation spray,non-aerosol nasal spray (3 sources) Start: naloxone (NARCAN) 4 mg/actuation spray,non-aerosol [...] Ondansetron Hcl Active 4 MG PO Q8H 25 10March 29, 2023 12:00am Start: 09-14-2021 End: 04-28-2022 [...] day(s), # 12 cap(s), Refills(s) 0, Pharmacy: [facility]/pharmacy #[id number], 165.1, cm, 04/24/23 13:32:00 [...] 12 March 29, 2023 polyethylene glycol 3350 85180 mg powder for oral solution (2 sources) Osmotic Laxative Start: 09-26-2023 End: 10-03-2023 take 17 g by mouth once daily Miralax 3350 17 gram packet 17 gm, Oral, Daily, X 7 day(s), # 119 gm, Refills(s) 0, Pharmacy: [facility]/pharmacy #[id number], 165, cm, 09/26/23 14:18:00 EDT, Height/Length Dosing, 81.2, kg, 09/26/23 14:18:00 EDT, Weight Dosing Start Date: 09/26/23 Stop Date: 10/03/23 Status: Ordered Symbicort 80/4.5 inhalation aerosol with adapter (12 sources) Start: 12-04-2021 Symbicort 80/4 .5 inhalation aerosol with adapter Refill(s) 0 Start Date: 12/04/21 Status: Ordered traMADol hydrochloride 50 mg oral tablet (7 sources) Opioid Agonist Start: 01-22-2024 End: 01-25-2024 [...] Drug Class(es) Dates Sig (Normalized) Sig (Original) [id number] 200 actuat albuterol 0.09 mg/actuat metered dose [...] by mouth every four to six hours Codeine-Guaifenes in Discontinued 10 ML PO EVERY 4-6 HOURS June 20, 2019 1:00am April 28, 2022 1:50am dextromethorphan hydrobromide 30 mg / pyrilamine maleate 30 mg oral tablet (7 sources) Uncompetitive X-qfaaje-X-aspartat e Receptor Antagonist, Sigma-1 Agonist Start: 08-11-2021 take 1 tablet by mouth every six hours as needed [place] DMT 30-30 MG 1 tablet Orally q6 hrs prn Aug, Not-Taking diazePAM 5 mg oral tablet (1 source) Benzodiazepine Start: 07-12-2024 End: 07-12-2024 take 1 dose by mouth once 5 mg, Oral, ONCE, 1 dose, On Obdulia 07/12/24 at 0145 1 ml diphenhydrAMINE hydrochloride 50 mg/ml cartridge (8 sources) Histamine-1 Receptor Antagonist Start: 07-14-2024 End: 07-14-2024 25 mg, Intravenous, ONCE, 1 dose, On 07/14/24 at 1900 take 1 capsule by [facility] every six hours as needed diphenhydrAMINE (BENADRYL) [...] 10:42am HYDROmorphone hydrochloride 2 mg oral tablet (18 sources) Opioid Agonist Start: 07-14-2024 End: 07-14-2024 1 mg, Intravenous, ONCE, 1 dose, On 07/14/24 at 1830 Start: 02-24-2024 End: 02-24-2024 0.5 mg, Intravenous, [...] Tue02/16/24 at 1615, Extravasation Risk, Radiology Procedure 2 ml metoclopramide 5 mg/ml prefilled syringe (1 source) Dopamine-2 Receptor Antagonist Start: 07-14-2024 End: 07-14-2024 10 mg, Intravenous, ONCE, 1 dose, On 07/14/24 at 1830 Multivitamins-Iron tab (7 sources) take 1 tablet by mouth once daily Multivitamins-Iro n tab Take 1 tablet by mouth once daily. 0 Active Comment on above: Take 1 tablet by melodie once daily. 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] Onset: 07-13-2024 07-14-2024 Episodic Deficiency and other anemia (12 sources) [...] Translations: [Constipation, unspecified] Onset: 09-26-2023 Episodic Other gastrointestinal disorders (1 source) Mass of abdominal cavity structure; Translations: [Intra-abdominal and pelvic swelling, mass and lump, unspecified site] Onset: 08-02-2024 Episodic Other hematologic conditions (1 source) Other abnormality of red blood cells; Translations: [Microcytosis] Onset: 06-22-2023 Episodic Other lower respiratory disease (16 sources) Dyspnea; Translations: [Dyspnea, unspecified] 06-20-2019 Episodic Other lower respiratory disease (18 sources) Cough; Translations: [Acute cough] 07-28-2023 Episodic Other lower respiratory disease (1 source) Cough; Translations: [Acute cough] 07-28-2023 Episodic Other nervous system disorders (4 sources) Other chronic pain; Translations: [Other chronic pain] Onset: 07-21-2024 Chronic Other nervous system disorders (1 source) Patient encounter status; Translations: [Other chronic pain] 08-01-2024 Chronic Other nervous system disorders (3 sources) Chronic pain; Translations: [Other chronic pain] Onset: 08-05-2024 Chronic Other nervous system disorders (20 sources) Paresthesia of upper limb; Translations: [Paresthesia of skin] Episodic Other non-traumatic joint disorders (1 source) Arthralgia of the pelvic region and thigh; Translations: [Pain in right hip] 03-03-2024 Episodic Other nutritional; endocrine; and metabolic [...] conditions (not mental disorders or infectious disease) (10 sources) Other specified abnormal findings of blood [...] Cough Onset: 08-11-2021 Resolved: 08-11-2021 Episodic Other non-traumatic joint disorders (2 sources) Pain in right hip; Translations: [Pain in right hip] Onset: 03-03-2024 Episodic Unclassified (8 sources) Cough R05.9 Onset: 05-18-2021 Resolved: 10-16-2021 Viral infection (1 source) COVID-19 Onset: 05-18-2021 Resolved: 05-18-2021 Results Test Name Value Interpretation Reference Range Facility CHEMISTRYOrdered By: SYSTEM SYSTEM on 08-10-2024 Albumin [Mass/Vol] 4.5 g/dL Normal 3.3 - 5.0 gm/dL [facility] Albumin/Globulin [Mass ratio] 1.4 {ratio} Normal 1.1 - 2.2 [facility] ALP [Catalytic activity/Vol] 61 [iU]/d Normal 21 - 98 Int._Unit/L [facility] ALT No additional P-5'-P [Catalytic activity/Vol] 16 [iU]/d Normal 6 - 46 Int._Unit/L [facility] Anion gap [Moles/Vol] 12 mmol/L Normal 6 - 16 mEq/L [facility] AST [Catalytic activity/Vol] 14 [iU]/d Normal 5 - 43 Int._Unit/L [facility] Bilirubin [Mass/Vol] 0.5 mg/dL Normal 0.0 - 1 .1 mg/dL [facility] Bilirubin.direct [Mass/Vol] 0.1 mg/dL Normal 0.0 - 0.4 mg/dL [facility] Bilirubin.indirect [Mass or moles/Vol] 0.4 mg/dL Normal 0.1 - 0.9 mg/dL [facility] Calcium [Mass/Vol] 9.7 mg/dL Normal 8.9 - 11. 1 mg/dL [facility] Chloride [Moles/Vol] 105 mmol/L Normal 101 - 1 11 mmol/L [facility] CO2 [Moles/Vol] 24 mmol/L Normal 21 - 31 mmol/L [facility] Creatinine [Mass/Vol] 0.7 mg/dL Normal 0.5 - 1.3 mg/dL [facility] eGFR 114 mL/min/1.73 m2 Normal >=59mL/mi n/ 1.73 m2 [facility] Globulin (S) [Mass/Vol] 3.3 g/dL Normal 1.4 - 4.0 gm/dL [facility] Glucose [Mass/Vol] 107 mg/dL Normal 55 - 199 mg/dL [facility] Lipase [Catalytic activity/Vol] 38 U/L Normal 13 - 58 unit/L [facility] Potassium [Moles/Vol] 3.5 mmol/L Normal 3.5 - 5.3 mmol/L [facility] Protein [Mass/Vol] 7.8 g/dL Normal 6.0 - 7.8 gm/dL [facility] Sodium [Moles/Vol] 137 mmol/L Normal 135 - 145 mmol/L [facility] Urea nitrogen [Mass/Vol] 7 mg/dL Normal 5 - 21 mg/dL [facility] Urea nitrogen/Creatinine [Mass ratio] 10 mg/mg Normal 10 - 20 [facility] HEMATOLOGYOrdered By: SYSTEM SYSTEM on 08-10-2024 Basophils/100 WBC (Bld) 2.5 % High 0.0 - 2.0 % [facility] Basophils/Leukocytes Auto (Bld) [Pure # fraction] 0.2 E9/L Normal 0.0 - 0.2 E9/L [facility] Eosinophils (Bld) [#/Vol] 0.0 E9/L Normal 0.0 - 0.5 E9/L [facility] Eosinophils/100 WBC (Bld) 0.4 % Normal 0.0 - 8.0 % [facility] Erythrocyte distribution width (RBC) [Ratio] 20.3 % High 10.9 - 14.2 % [facility] Hematocrit (Bld) [Volume fraction] 35.2 % Normal 34.0 - 46.0 % [facility] Hemoglobin (Bld) [Mass/Vol] 11.3 g/dL Low 12.0 - 16.0 gm/dL [facility] Lymphocytes (Bld) [#/Vol] 1.0 E9/L Normal 1.0 - 4.0 E9/L [facility] Lymphocytes/100 WBC (Bld) 12.8 % Low 14.0 - 50.0 % [facility] MCH (RBC) [Entitic mass] 24.0 pg Low 27.0 - 34.0 pg [facility] MCHC (RBC) [Mass/Vol] 32.2 g/dL Normal 31.4 - 36.0 gm/dL [facility] MCV (RBC) [Entitic vol] 74.5 fL Low 80.0 - 100.0 fL [facility] Monocytes (Bld) [#/Vol] 0.4 E9/L Normal 0.2 - 1.0 E9/L [facility] Monocytes/100 WBC (Bld) 5.5 % Normal 4.0 - 14.0 % [facility] Neutrophils (Bld) [#/Vol] 5.9 E9/L Normal 2.0 - 7.5 E9/L [facility] Neutrophils/100 WBC (Bld) 78.8 % High 36.0 - 75.0 % [facility] Platelet mean volume (Bld) [Entitic vol] 7.6 fL Normal 6.4 - 10.8 fL [facility] Platelets (Bld) [#/Vol] 563.0 E9/L High 150. 0 - 500.0 E9/L [facility] RBC (Bld) [#/Vol] 4.7 E12/L Normal 4.3 - 5.9 E12/L [facility] WBC corrected for nucl RBC Auto (Bld) [#/Vol] 7.5 E9/L Normal 4.0 - 11.0 E9/L [facility] URINALYSISOrdered By: SYSTEM SYSTEM on 08-10-2024 Bilirubin Ql (U) Negative Normal Negativemg/ dL [facility] UA Auto SS Clarity (U) Clear (08/10/24 8:58 PM) Normal Clear [facility] UA Auto SS Color (U) Colorless 1 *ABN* (08/10/24 8:58 PM) Invalid Interpretation Code Yellow [facility] UA Auto SS Comment on above: Interpretive Data: M icroscopic readings are only performed on those samples that meet specific criteria set forth by [facility]. Glucose Ql (U) Negative Normal [...] dL [facility] UA Auto SS pH (U) 7.5 *NA* (08/10/24 8:58 PM) Invalid Interpretation Code 5.0 - 9.0 [facility] UA Auto SS Protein Ql (U) Negative Normal Negativemg/ dL [facility] UA Auto SS Specific gravity (U) [Rel density] 1.005 *NA* (08/10/24 8:58 PM) Invalid Interpretation Code 1.005 - 1.030 [facility] [place] [facility] [place] Urobilinogen (U) [Mass/Vol] Negative Normal Negativemg/ dL [facility] [place] [facility] Auto SS URINALYSISOrdered By: Tarik Campos on 08-10-2024 UA Spec Desc Clean Catch (08/10/24 8:58 PM) Normal [facility] [place] [facility] Auto SS Work Phone: ED Note-Physicianon 08-07-19 ED Note-Physician ED Note-Physician Basic Information Time Seen: Benjy Echeverria PA-C 08/05/2024 18:06 Chief Complaint pt seen multiple times for abd pain. was seen in ed earlier and sent home. states oxy and toradol with no pain releif. History of Present Illness 39-year-old female reports to the emergency department for abdominal pain. Reports he was seen here earlier, given Percocet as well as Toradol, but still having pain. Reports history of endometrioma of her abdomen. Trying follow-up with pain management as well as her FITNESS TECHNICIAN at [facility] in [place]. She denies any relief in her pain. Denies any new symptoms. Reports is currently been going on for months. Review of Systems No other aggravating or relieving factors no other associated symptoms no other prior treatments or complaints. Family: Reviewed and noncontributory Social: lives at home Review of systems negative unless otherwise specified in the HPI. Physical Exam Vitals & Measurements HR: 92(Peripheral) RR: 20 BP: 129/80 SpO2: 100% HT: 165 cm WT: 89 kg BMI: 32.69 General: The patient appears well and in no apparent distress. Patient is resting comfortably in chair. Afebrile Skin: Warm, dry, no pallor noted. Head: Normocephalic, atraumatic Neck: No JVD Eye: PERRLA, EOMI ENT: Moist mucus membranes Cardiovascular: Regular rate. normal peripheral perfusion Respiratory: No respiratory distress. no accessory muscle use. no obvious audible wheezing Chest Wall: no deformity Musculoskeletal: normal ROM, no deformity, no swelling GI: No obvious distention. Abdomen soft no rebound tenderness or guarding noted on palpation. Neurological: A&O. moves all extremities equal strength and symmetry Psychiatric: Cooperative and appropriate Medical Decision Making MEDICAL DECISION MAKING Number and Complexity of Problems Differential Diagnosis: [] [facility] Data External documents reviewed: [] My EKG interpretation: [] My CT interpretation: [] My X-ray interpretation: [] My Ultrasound interpretation: [] Decision rules/scores evaluated: [] Discussed with: [] Treatment and Disposition ED Course: 39-year-old female reports emerged department with chronic abdominal pain. Has a history of endometrioma. She was seen earlier today, given Percocet as well as Toradol. I discussed ultimately she needs to have follow-up with her FITNESS TECHNICIAN for likely surgery if is causing this much pain. Abdomen is soft with no rebound tenderness or guarding noted. No acute distress. She was requesting a IM shot. I discussed that Percocet is going to give at home, and I did give her a to go pack, and discussed that she needs a follow-up with either pain management or an FITNESS TECHNICIAN for chronic pain. Follow-up with your primary care provider in 3 to 5 days. If symptoms worsen, do not improve, or new symptoms arise please report back to emergency department for further evaluation. The patient was understanding and agreeable to plan moving forward. Shared decision making: [] Code status: [] Assessment/Plan Chronic abdominal pain (R10.9: Unspecified abdominal pain) Endometrioma (N80.129: Deep endometriosis of ovary, unspecified ovary) Other chronic pain (G89.29: Other chronic pain) Orders: acetaminophen-oxycodon e, 1 EA, Tab, Oral, Once, Stop date 08/05/24 19:17:00 EST, STAT, Start date 08/05/24 19:17:00 EST Medications Administered Given TO GO acetaminophen-oxycodon e 325 mg - 5 mg, 1 EA, Oral Disposition Plan Patient Discharge Condition Stable Discharge Disposition To home Discharge Prescription List Prescriptions No active prescription medications Follow-up With When Contact Information Pain Clinic: [facility] [phone] In 3 days 08/08/2024 EST Additional Instructions: Call Dr for diagnosis based follow up Savannah Petersen In 3 days 08/08/2024 EST [address] [place] [address]- [facility] (1) Additional Instructions: Call Dr for diagnosis based follow up Patient Education Abdominal Pain, Adult, Orvb-wr-Teih Attestation Patient seen and evaluated by the physician front end assistant. Attending physician was present in the emergency department and supervised care. This visit was performed by both the physician and an APC. I performed all aspects of the MDM as documented. This report was transcribed using voice recognition software. Every effort was made to ensure accuracy, however, inadvertently computerized linux administrator mistakes may be present. Appropriate healthcare PPE was used in evaluating this patient. The patient was placed in a mask. The healthcare provider was wearing mask, gloves, and utilizing proper hand hygiene. All equipment was properly cleansed. I performed a substantive part of the MDM during the patient???s E/M visit. I personally made or approved the documented management plan and acknowledge its risk of complications. (Independent Interpretation) My (EKG/X-Ray/US/CT as applicable) interpretation as abo (more content not included)... Normal [facility] Comment on above: Result Comment: Elec tronically Signed By: Benjy Echeverria PA-C\.br\Date and Time Signed: 08/05/24 21:50 EST\.br\Electronically Co-Signed By: Dimitri Vuong MD\.br\Date and Time Co-Signed: 08/07/24 08:44 EST ED Note-Physician ED Note-Physician Basic Information Time Seen: Sean Frazier PA-C 08/05/2024 11:20 Chief Complaint pt reports r lower abd pain, states has hx of this pain. was seen a few days ago. pain is persisting and also has some nausea but no vomiting. History of Present Illness 39-year female comes to the ED for evaluation abdominal pain. This is a longstanding issue for this patient. She has chronic right side abdominal pain with her known endometrioma pelvic mask. She follows with FITNESS TECHNICIAN out of [place]. She was seen here couple of days ago and had a stable workup including CT of the abdomen. She presents today requesting pain control. No new or unusual symptoms. No fevers. Review of Systems A 10 point review of systems is negative except as noted above. Medical and Surgical History: Reviewed and noted Social history: Lives at home Tobacco: Denies Physical Exam Vitals & Measurements T: 36.4 ???C(Tympanic) HR: 114(Peripheral) RR: 20 BP: 134/72 SpO2: 100% HT: 165 cm WT: 89 kg BMI: 32.69 Nurses notes and vital signs reviewed and patient is not hypoxic. General: The patient appears well and in no significant distress Patient is resting comfortably on the exam bed. Skin: Warm, dry, no pallor noted. Head: Atraumatic. Neck: No JVD. Eye: Normal conjunctiva. Ears, Nose, Mouth, and Throat: Moist mucous membranes Cardiovascular: Strong distal pulses. Chest wall: Respiratory: Respirations are nonlabored. Lungs clear to auscultation. Back: Normal range of motion, no CVA tenderness. Musculoskeletal: Normal ROM with no gross deformity. Gastrointestinal: Abdomen is soft throughout. There is no reproducible tenderness. No guarding rebound or rigidity. No distention Urological: Neurological: Awake and alert. No focal deficits. Follows commands. GCS 15. Psychiatric: Cooperative. Medical Decision Making Patient has a soft benign abdomen. She has longstanding history of chronic abdominal pain with multiple previous evaluations. She was seen at 2 days ago and had stable workup including CT of the abdomen. She is medicated for pain today and is discharged home to follow-up with her specialist. Patient was encouraged to return to the ED if symptoms worsen or change. Assessment/Plan Chronic abdominal pain (R10.9: Unspecified abdominal pain) Endometrioma (N80.129: Deep endometriosis of ovary, unspecified ovary) Other chronic pain (G89.29: Other chronic pain) Orders: ketorolac, 60 mg = 2 mL, Injection, IntraMuscular, Once, Stop date 08/05/24 11:24:00 EST, STAT, Start date 08/05/24 11:24:00 EST, 08/05/24 11:24:00 EST oxycodone, 5 mg = 1 tab(s), Tab, Oral, Once, Stop date 08/05/24 11:24:00 EST, STAT, Start date 08/05/24 11:24:00 EST, 08/05/24 11:24:00 EST Medications Administered Given ketorolac 60 mg/2 mL Injection, 60 mg, IntraMuscular oxyCODONE 5 mg Tab, 5 mg, Oral Disposition Plan Patient Discharge Condition Disposition: Discharged home Condition: Improved and stable Counseled: Patient and/or family were counseled to workup, results, treatment plan and follow-up recommendations Discharge Prescription List Prescriptions No active prescription medications Follow-up With When Contact Information XXXX NONE In 3 days 08/08/2024 EST [place] Additional Instructions: Follow-up with your OBGYN surgeon Patient Education Chronic Pain, Adult Attestation I performed a substantive part of the MDM during the patient???s E/M visit. I personally made or approved the documented management plan and acknowledge its risk of complications. (Independent Interpretation) My (EKG/X-Ray/US/CT) interpretation as above. (Discussion) Management/test interpretation discussed with APC. This report was transcribed using voice recognition software. Every effort was made to ensure accuracy, however, inadvertently computerized linux administrator mistakes may be present. Appropriate healthcare PPE was used in evaluating this patient. Problem List/Past Medical History Ongoing No chronic problems Historical Endometriosis Ovarian cyst Procedure/Surgical History Cholecystectomy, Hysterectomy. Medications Inpatient No active inpatient medications Home alprazolam 0.25 mg Tab citalopram 20 mg Tab, Oral, Daily diflunisal 500 mg Tab, 500 mg= 1 tab(s), Oral, q12hr Symbicort 80/4.5 inhalation aerosol with adapter Allergies Compazine (Jittery) morphine (Itch) Social History Alcohol - Low Risk, 04/24/2023 Current, 1-2 times per month, 06/28/2024 Current, Beer, Wine, 1-2 times per month, 04/24/2023 Substance Abuse - Denies Substance Abuse, 04/24/2023 Tobacco Never (less than 100 in lifetime) Tobacco Use:. Never Smokeless Tobacco Use:., 12/04/2021 Lab Results No qualifying data available. Diagnostic Results No qualifying data available. Normal [facility] Comment on above: Result Comment: Elec tronically Signed By: Sean Frazier PA-C\.br\Date and Time Signed: 08/05/24 11:55 EST\.br\Electronically Co-Signed By: Dimitri Vuong MD\.br\Date and Time Co-Signed: 08/07/24 08:25 EST ED Clinical Summaryon 2024 ED Clinical Summary ED Clinical Summary [address] [address] ED Clinical Summary Person Information Name: ANTONIA NOYOLA/Michelle Age: 39 Years : 1985 Sex: Female Language: Jordanian PCP: NONE, XXXX Marital Status: Visit Id: Visit Reason: Medical problem - minor; ABD PAIN Speciality: Acuity: 4 Enc Type: Emergency Med Service: Emergency Arrival: 08/05/2024 18:00:36 Discharge: 08/05/2024 19:29:40 LOS: 000 01:29 Checkin: 08/05/2024 18:00:36 Checkout: 08/05/2024 19:29:40 Dispo Type: Home (Routine DC) EVENTS: Event Name Event Status Request Date/Time Start Date/Time Complete Date/Time Arrive Complete 08/05/2024 18:00:36 08/05/2024 18:00:36 08/05/2024 18:00:36 Document Home Meds Request 08/05/2024 18:00:36 Triage Complete 08/05/2024 18:00:36 08/05/2024 18:05:06 08/05/2024 18:05:06 Bed Assign Complete 08/05/2024 18:02:16 08/05/2024 18:02:16 08/05/2024 18:02:16 Dr Exam Complete 08/05/2024 18:02:16 08/05/2024 18:06:30 08/05/2024 18:06:30 RN Exam Complete 08/05/2024 18:02:16 08/05/2024 18:07:24 08/05/2024 18:07:24 Registration Complete 08/05/2024 18:03:47 08/05/2024 18:03:47 08/05/2024 18:03:47 Reg Complete Request 08/05/2024 18:03:47 Reg Bed Request Complete 08/05/2024 18:03:47 08/05/2024 18:03:47 08/05/2024 18:03:47 Registration Request 08/05/2024 18:06:30 Meds Admin Complete 08/05/2024 19:18:04 08/05/2024 19:28:06 Discharge Complete 08/05/2024 19:19:01 08/05/2024 19:29:44 08/05/2024 19:29:44 Transfer Complete 08/05/2024 19:29:44 08/05/2024 19:29:44 08/05/2024 19:29:44 ADDRESS: [address] [place] [id number] [facility] DOC NOTES: MEDICAL INFORMATION: Prescriptions Given: Medications to Continue with No Changes Other Medications diflunisal (diflunisal 500 mg Tab) 1 Tablets By Mouth every 12 hours. Refills: 0. PATIENT EDUCATION INFORMATION: Instructions: Abdominal Pain, Adult, Oqwb-nl-Hssi Follow up: With: Address: When: Pain Clinic: [facility] [phone] In 3 days 08/08/2024 Comments: Call for diagnosis based follow up With: Address: When: Savannah Petersen [address] [place] [address] [facility] () In 3 days 08/08/2024 Comments: Call for diagnosis based follow up DIAGNOSIS: Chronic abdominal pain; Endometrioma; Other chronic pain Normal [facility] ED Clinical Summary ED Clinical Summary [address] [address] ED Clinical Summary Person Information Name: [facility] Age: 39 Years : 1985 Sex: Female Language: Jordanian PCP: NONE, XXXX Marital Status: MRN: [id number] Visit Id: Visit Reason: Nausea; Abdominal pain; ABD PAIN Speciality: Acuity: 3 Enc Type: Emergency Med Service: Emergency Arrival: 08/05/2024 11:06:17 Discharge: 08/05/2024 11:44:58 LOS: 000 00:38 Checkin: 08/05/2024 11:06:17 Checkout: 08/05/2024 11:44:58 Dispo Type: Home (Routine DC) EVENTS: Event Name Event Status Request Date/Time Start Date/Time Complete Date/Time Arrive Complete 08/05/2024 11:06:17 08/05/2024 11:06:17 08/05/2024 11:06:17 Document Home Meds Request 08/05/2024 11:06:17 Triage Complete 08/05/2024 11:06:17 08/05/2024 11:14:40 08/05/2024 11:14:40 Registration Complete 08/05/2024 11:09:48 08/05/2024 11:09:48 08/05/2024 11:09:48 Reg Complete Request 08/05/2024 11:09:48 Reg Bed Request Complete 08/05/2024 11:09:48 08/05/2024 11:09:48 08/05/2024 11:09:48 Bed Assign Complete 08/05/2024 11:11:29 08/05/2024 11:11:29 08/05/2024 11:11:29 Dr Exam Complete 08/05/2024 11:11:30 08/05/2024 11:20:23 08/05/2024 11:20:23 RN Exam Complete 08/05/2024 11:11:30 08/05/2024 11:40:17 08/05/2024 11:40:17 Registration Request 08/05/2024 11:20:23 Dr Exam Complete 08/05/2024 11:23:05 08/05/2024 11:23:05 08/05/2024 11:23:05 Meds Admin Complete 08/05/2024 11:25:27 08/05/2024 11:32:10 Discharge Complete 08/05/2024 11:26:05 08/05/2024 11:45:03 08/05/2024 11:45:03 Transfer Complete 08/05/2024 11:45:03 08/05/2024 11:45:03 08/05/2024 11:45:03 ADDRESS: [address] [place] [id number] [facility] DOC NOTES: MEDICAL INFORMATION: Prescriptions Given: Medications to Continue with No Changes Other Medications alprazolam (alprazolam 0.25 mg Tab) budesonide-formoterol (Symbicort 80/4.5 inhalation aerosol with adapter) citalopram (citalopram 20 mg Tab) By Mouth every day. diflunisal (diflunisal 500 mg Tab) 1 Tablets By Mouth every 12 hours. Refills: 0. PATIENT EDUCATION INFORMATION: Instructions: Chronic Pain, Adult Follow up: With: Address: When: XXXX [place] In 3 days 08/08/2024 Comments: Follow-up with your OBGYN surgeon DIAGNOSIS: Chronic abdominal pain; Endometrioma; Other chronic pain Normal [facility] ED Patient Summaryon 025 ED Patient Summary ED Patient Summary [address] [address] Patient Discharge Instructions Person Information Name: ANTONIA NOYLOA Age: 39 Years Arrival Date: 08/05/2024 18:00:36 Discharge Diagnosis: Chronic abdominal pain; Endometrioma; Other chronic pain Primary Care Physician: NONE, XXXX Provider Information Primary Provider: Advanced Die Press Operator:Benjy Echeverria PA-C The exam and treatment you received in the Emergency Department were for an urgent problem and are not intended as complete care. It is important that you follow up with a doctor, nurse practitioner, or physician???s front end assistant for ongoing care. If your symptoms become worse or you do not improve as expected and you are unable to reach your usual health care provider, you should return to the Emergency Department. We are available 24 hours a day. ANTONIA NOYOLA has been given the following list of patient education materials, prescriptions and follow-up instructions: Follow-up Instructions: With: Address: When: Pain Clinic: [facility] [phone] In 3 days 08/08/2024 Comments: Call Dr for diagnosis based follow up With: Address: When: Savannah Petersen [address] [place] [address] [facility] () In 3 days 08/08/2024 Comments: Call for diagnosis based follow up In the event that this physician does not participate in your insurance network, please consult with your insurance company to find a nearby participating provider. Patient Education Materials: Abdominal Pain, Adult, Zzby-sy-Xhqd A MESSAGE TO ALL PATIENTS REGARDING OPIOIDS PRESCRIPTION OPIOIDS: WHAT YOU NEED TO KNOW Prescription opioids can be used to help relieve xzeohipy-uw-ydyltb pain and are often prescribed following a [...] from the Food and Drug Administration (www.fda.gov/Drugs/Res (more content not included)... Normal [facility] ED Patient Summary ED Patient Summary [place] [id number] Patient Discharge Instructions Person Information Name: ANTONIA NOYOLA Age: 39 Years Arrival Date: 08/05/2024 11:06:17 Discharge Diagnosis: Chronic abdominal pain; Endometrioma; Other chronic pain Primary Care Physician: NONE, XXXX Provider Information Primary Provider: Dimitri Vuong MD Advanced Die Press Operator:Sean Frazier PA-C The exam and treatment you received in the Emergency Department were for an urgent problem and are not intended as complete care. It is important that you follow up with a doctor, nurse practitioner, or physician???s front end assistant for ongoing care. If your symptoms become worse or you do not improve as expected and you are unable to reach your usual health care provider, you should return to the Emergency Department. We are available 24 hours a day. ANTONIA NOYOLA has been given the following list of patient education materials, prescriptions and follow-up instructions: Follow-up Instructions: With: Address: When: XXXX KARISHMA RANGEL In 3 days 08/08/2024 Comments: Follow-up with your OBGYN surgeon In the event that this physician does not participate in your insurance network, please consult with your insurance company to find a nearby participating provider. Patient Education Materials: Chronic Pain, Adult A MESSAGE TO ALL PATIENTS REGARDING OPIOIDS PRESCRIPTION OPIOIDS: WHAT YOU NEED TO KNOW Prescription opioids can be used to help relieve nspzzpku-mi-fxemnk pain and are often prescribed following a [...] be struggling with addiction, tell your health wound care physician and (more content not included)... Normal [facility] B hCG Qualon 08-02-2024 Beta HCG ( test) Ql Negative Normal [facility] Comment on above: Performed By: #### 2 [id number] #### [facility] [address] [place] [address] BMPOrdered By: SYSTEM SYSTEM on 08-02-2024 Anion gap [Moles/Vol] 14 mmol/L Normal 6-16 Rem isol Chem Comment on above: Performed By: #### 2 [id number] #### [facility] [address] [place] [address] Calcium [Mass/Vol] 9.8 mg/dL Normal 8.9-11.1 Remiso l Chem Comment on above: Performed By: #### 2 [id number] #### [facility] [address] [place] [address] Chloride [Moles/Vol] 106 mmol/L Normal 101-111 Carlyle lucinda Chem Comment on above: Performed By: #### 2 [id number] #### [facility] [address] [place] [address] CO2 [Moles/Vol] 23 mmol/L Normal 21-31 Remisol C hem Comment on above: Performed By: #### 2 [id number] #### [facility] [address] [place] [address] Creatinine [Mass/Vol] 0.7 mg/dL Normal 0.5-1.3 Rem isol Chem Comment on above: Performed By: #### 2 [id number] #### [facility] [address] [place] [address] Glucose [Mass/Vol] 104 mg/dL Normal 55-199 Remiso l Chem Comment on above: Performed By: #### 2 [id number] #### [facility] [address] [place] [address] Potassium [Moles/Vol] 3.9 mmol/L Normal 3.5-5.3 Rem isol Chem Comment on above: Performed By: #### 2 [id number] #### [facility] [address] [place] [address] Sodium [Moles/Vol] 139 mmol/L Normal 135-145 Remiso l Chem Comment on above: Performed By: #### 2 [id number] #### [facility] [address] [place] [address] Urea nitrogen [Mass/Vol] 6 mg/dL Normal 5-21 Remisol Chem Comment on above: Performed By: #### 2 [id number] #### [facility] [address] [place] [address] BMPon 08-02-2024 Urea nitrogen/Creatinine [Mass ratio] 9 No Units Low 10-20 [facility] Comment on above: Performed By: #### 2 [id number] #### [facility] [address] [place] [address] CBC w/ Auto Diffon Acanthocytes LM Ql (Bld) PRESENT Invalid Interpretation Code [facility] Comment on above: Performed By: #### 2 [id number] #### [facility] [address] [place] [address] Hypochromia Auto Ql (Bld) PRESENT Invalid Interpretation Code [facility] Comment on above: Performed By: #### 2 [id number] #### [facility] [address] [place] [address] Microcytes Ql (Bld) PRESENT Invalid Interpretation Code [facility] Comment on above: Performed By: #### 2 [id number] #### [facility] [address] [place] [address] RBC size Nom (Bld) SEE MORPHOLOGY Invalid Interpretation Code [facility] Comment on above: Performed By: #### 2 [id number] #### [facility] [address] [place] [address] CBC w/ Auto DiffOrdered By: SYSTEM SYSTEM on 08-02-2024 Basophils/100 WBC (Bld) 1.1 % Normal 0.0-2.0 R emisol Heme Comment on above: Performed By: #### 2 [id number] #### [facility] [address] [place] [address] Basophils/Leukocytes Auto (Bld) [Pure # fraction] 0.1 E9/L Normal 0.0-0.2 Remisol Heme Comment on above: Performed By: #### 2 [id number] #### [facility] [address] [place] [address] Eosinophils (Bld) [#/Vol] 0.0 E9/L Normal 0.0-0.5 Remisol Heme Comment on above: Performed By: #### 2 [id number] #### [facility] [address] [place] [address] Eosinophils/100 WBC (Bld) 0.1 % Normal 0.0-8.0 Remisol Heme Comment on above: Performed By: #### 2 [id number] #### [facility] [address] [place] [address] Erythrocyte distribution width (RBC) [Ratio] 20.3 % High 10.9-14.2 Remisol Heme Comment on above: Performed By: #### 2 [id number] #### [facility] [address] [place] [address] Hematocrit (Bld) [Volume fraction] 37.6 % Normal 34.0-46.0 Remisol Heme Comment on above: Performed By: #### 2 [id number] #### [facility] [address] [place] [address] Hemoglobin (Bld) [Mass/Vol] 12.2 g/dL Normal 12.0-16.0 Remisol Heme Comment on above: Performed By: #### 2 [id number] #### [facility] [address] [place] [address] Lymphocytes (Bld) [#/Vol] 1.8 E9/L Normal 1.0-4.0 Remisol Heme Comment on above: Performed By: #### 2 [id number] #### [facility] [address] [place] [address] Lymphocytes/100 WBC (Bld) 27.3 % Normal 14.0-50.0 Remisol Heme Comment on above: Performed By: #### 2 [id number] #### [facility] [address] [place] [address] MCH (RBC) [Entitic mass] 23.8 pg Low 27.0-34.0 Remisol Heme Comment on above: Performed By: #### 2 [id number] #### [facility] [address] [place] [address] MCHC (RBC) [Mass/Vol] 32.4 g/dL Normal 31.4-36.0 Rem isol Heme Comment on above: Performed By: #### 2 [id number] #### [facility] [address] [place] [address] MCV (RBC) [Entitic vol] 73.5 fL Low 80.0-100.0 R emisol Heme Comment on above: Performed By: #### 2 [id number] #### [facility] [address] [place] [address] Monocytes (Bld) [#/Vol] 0.3 E9/L Normal 0.2-1.0 R emisol Heme Comment on above: Performed By: #### 2 [id number] #### [facility] [address] [place] [address] Neutrophils (Bld) [#/Vol] 4.3 E9/L Normal 2.0-7.5 Remisol Heme Comment on above: Performed By: #### 2 [id number] #### [facility] [address] [place] [address] Neutrophils/100 WBC (Bld) 66.7 % Normal 36.0-75.0 Remisol Heme Comment on above: Performed By: #### 2 [id number] #### [facility] [address] [place] [address] Platelet mean volume (Bld) [Entitic vol] 7.4 fL Normal 6.4-10.8 Remisol Heme Comment on above: Performed By: #### 2 [id number] #### [facility] [address] [place] [address] Platelets (Bld) [#/Vol] 452.0 E9/L Normal 150.0-500.0 Remisol Heme Comment on above: Performed By: #### 2 [id number] #### [facility] [address] [place] [address] RBC (Bld) [#/Vol] 5.1 E12/L Normal 4.3-5.9 Remisol Heme Comment on above: Performed By: #### 2 260602 #### [facility] [address] [place] [address] WBC corrected for nucl RBC Auto (Bld) [#/Vol] 6.4 E9/L Normal 4.0-11.0 Remisol H tracie Comment on above: Performed By: #### 2 [id number] #### [facility] [address] [place] [address] CHEMISTRYOrdered By: SYSTEM SYSTEM on 08-02-2024 Albumin/Globulin [Mass ratio] 1.3 {ratio} Normal 1.1 - 2.2 Remisol Chem ALP [Catalytic activity/Vol] 71 [iU]/d Normal 21 - 98 Int._Unit/L Remisol Chem ALT No additional P-5'-P [Catalytic activity/Vol] 9 [iU]/d Normal 6 - 46 Int._Unit/L Remisol Chem AST [Catalytic activity/Vol] 12 [iU]/d Normal 5 - 43 Int._Unit/L Remisol Chem Urea nitrogen/Creatinine [Mass ratio] 9 mg/mg Low 10 - [address] Abdomen/Pelvis w/ Contras ton 08-02-2024 CT Abdomen/Pelvis w/ Contrast Exam Date/Time: 08/02/2024 17:17 EST Reason for Exam: Pain Report IMPRESSION: APPROXIMATELY 4.2 CM OVOID RIGHT ADNEXAL MASS, CONSISTENT WITH ENDOMETRIOMA. NO FREE FLUID OR OTHER SIGNIFICANT CHANGE FROM 06/24/2024 IDENTIFIED. EXAM: CT Abdomen/Pelvis w/ Contrast DATE: 08/02/2024 4:49 PM CLINICAL HISTORY: Pain. Technologist Comments: pt presents with right lower abd pain with history of ovarian remnant syndrome. pt is waiting for appt with surgeon and referral pain mangt. this episode started 3 days ago. pt states right sided endometriosis mass. COMPARISON: 06/24/2024. TECHNIQUE: Spiral imaging was obtained of the abdomen and pelvis after the uneventful infusion of intravenous contrast. All CT scans at this facility use dose modulation, iterative reconstruction, and/or weight based dosing when appropriate to reduce radiation dose to as low as reasonably achievable. Unless otherwise stated, incidental findings identified in this report do not require routine follow-up imaging. FINDINGS: Since the prior study, an approximately 4.2 x 3.2 cm nonenhancing low density ovoid structure has developed within the right adnexa, consistent with an endometrioma, given the patient's history. The appendix is normal in caliber on the current study, without significant inflammatory changes, free fluid, abnormal bowel dilatation, or other significant changes identified. Ordering Provider: Neha Hannah FINAL REPORT Dictated: 08/02/2024 5:33 pm Harvey Leslie MD Signed (Electronic Signature): 08/02/2024 5:33 pm Signed by: Harvey Leslie MD Transcribed by: MILLIE Technologist: KAREN Miller [facility] ED Clinical Summaryon 2024 ED Clinical Summary ED Clinical Summary [address] [address] ED Clinical Summary Person Information Name: ANTONIA NOYOLA/[place] Age: 39 Years : 1985 Sex: Female Language: Jordanian PCP: NONE, XXXX Marital Status: Visit Id: Visit Reason: Abdominal pain; abd pain Speciality: Acuity: 3 Enc Type: Emergency Med Service: Emergency Arrival: 08/02/2024 14:41:13 Discharge: 08/02/2024 19:06:28 LOS: 000 04:25 Checkin: 08/02/2024 14:41:13 Checkout: 08/02/2024 19:06:28 Dispo Type: Home (Routine DC) EVENTS: Event Name Event Status Request Date/Time Start Date/Time Complete Date/Time Arrive Complete 08/02/2024 14:41:13 08/02/2024 14:41:13 08/02/2024 14:41:13 Document Home Meds Request 08/02/2024 14:41:13 Triage Complete 08/02/2024 14:41:13 08/02/2024 14:47:58 08/02/2024 14:47:58 Pending Labs Complete 08/02/2024 14:48:50 08/02/2024 16:49:45 Lab Complete 08/02/2024 14:48:50 08/02/2024 16:48:47 Registration Complete 08/02/2024 15:09:14 08/02/2024 15:09:14 08/02/2024 15:09:14 Reg Complete Request 08/02/2024 15:09:14 Reg Bed Request Complete 08/02/2024 15:09:14 08/02/2024 15:09:14 08/02/2024 15:09:14 Bed Assign Complete 08/02/2024 16:04:02 08/02/2024 16:04:02 08/02/2024 16:04:02 Dr Exam Complete 08/02/2024 16:04:02 08/02/2024 16:09:50 08/02/2024 16:09:50 RN Exam Complete 08/02/2024 16:04:02 08/02/2024 16:33:24 08/02/2024 16:33:24 Pending Labs Complete 08/02/2024 16:04:37 08/02/2024 16:04:37 08/02/2024 16:31:33 Lab Complete 08/02/2024 16:04:37 08/02/2024 16:04:37 08/02/2024 16:31:33 Registration Request 08/02/2024 16:09:50 Meds Admin Complete 08/02/2024 16:32:43 08/02/2024 16:44:36 CT Complete 08/02/2024 16:32:43 08/02/2024 16:49:42 08/02/2024 17:17:43 Meds Admin Complete 08/02/2024 18:31:35 08/02/2024 18:45:04 Discharge Complete 08/02/2024 18:40:04 08/02/2024 19:06:33 08/02/2024 19:06:33 Pending Labs Complete 08/02/2024 18:50:40 08/02/2024 18:50:40 08/02/2024 18:50:40 Transfer Complete 08/02/2024 19:06:33 08/02/2024 19:06:33 08/02/2024 19:06:33 ADDRESS: [address] [place] [id number] [facility] DOC NOTES: MEDICAL INFORMATION: Prescriptions Given: Medications to Continue with No Changes Other Medications alprazolam (alprazolam 0.25 mg Tab) budesonide-formoterol (Symbicort 80/4.5 inhalation aerosol with adapter) citalopram (citalopram 20 mg Tab) By Mouth every day. diflunisal (diflunisal 500 mg Tab) 1 Tablets By Mouth every 12 hours. Refills: 0. PATIENT EDUCATION INFORMATION: Instructions: Pelvic Mass, Female; Abdominal Pain, Adult Follow up: With: Address: When: Make sure to follow-up with your [employer] at [facility]. Return to the emergency room if your pain gets worse or any new symptoms. In 3 days 08/05/2024 DIAGNOSIS: 1:Abdominal pain; 2:Pelvic mass Normal [facility] ED Note-Physicianon 08-02-19 ED Note-Physician ED Note-Physician Basic Information Time Seen: Neha Hannah M.D. 08/02/2024 16:09 Chief Complaint pt presents with right lower abd pain with history of oviarian remnent syndrom. pt is waiting for appt with surgeon and reffarl to pain mangt. this episdoe started 3 days ago History of Present Illness The patient is a 39-year-old female who presented to the emergency room with right lower quadrant abdominal pain. The patient states she has history of endometriosis. She did have hysterectomy and oophorectomy at [facility]. The patient states on May she had ultrasound of her pelvis which showed a cystic mass on the right pelvic area which possible was endometrioma, seroma or possible abscess. The patient states that she is scheduled for another surgery at [facility] for the mass. She is in [place] wsasbe-igw-qbwdt. The patient states for past 3 days the pain is sharp. She reports nausea but no vomiting. She denies any fever, denies any chills. The patient denies any burning with urination. The patient states this feels the same as exacerbation of her pain. The patient denies any other associated symptoms. Review of Systems Additional ROS info: Except as noted in the above Review of Systems and in the History of Present Illness all other systems have been reviewed and are negative or noncontributory. Physical Exam Vitals & Measurements T: 36.7 ???C(Oral) HR: 108(Peripheral) RR: 18 BP: 162/92 SpO2: 100% HT: 165.10 cm WT: 89.1 kg BMI: 32.69 General: alert, mild distress Skin: warm, dry Head: no trauma, normocephalic Neck: Trachea midline, no tenderness, supple Eye: normal conjunctiva, sclera clear Cardiovascular: regular rate and rhythm Respiratory: Lungs CTA, respirations non labored, breath sounds equal, Gastrointestinal: soft, non distended, moderate tenderness right lower quadrant, no guarding Extremities: no deformity, no trauma Neurological: Alert and oriented, speech normal, no focal neuro deficits Psychiatric: cooperative, affect appropriate for age, Medical Decision Making MEDICAL DECISION MAKING Number and Complexity of Problems Differential Diagnosis: [] [facility] Data External documents reviewed: [] My EKG interpretation: [] My CT interpretation: [] My X-ray interpretation: [] My Ultrasound interpretation: [] Decision rules/scores evaluated: [] Discussed with: [] Treatment and Disposition ED Course: Patient presented with pelvic/right lower quadrant abdominal pain. Blood work reviewed unremarkable. The urine shows no infection. CT of the abdomen and pelvis shows right pelvic mass possible endometrioma. The patient is aware of this mass. She has an appointment with her [employer] in [facility]. The patient was given Zofran and Dilaudid for pain and her pain improved. Will discharge patient home follow-up with her [employer]. She is instructed to return to the emergency room if her pain gets worse or any new symptoms. Shared decision making: [] Code status: [] Assessment/Plan 1. Abdominal pain (R10.9: Unspecified abdominal pain) 2. Pelvic mass (R19.00: Intra-abdominal and pelvic swelling, mass and lump, unspecified site) Orders: HYDROmorphone, 1 mg = 1 mL, Injection, IV Push, Once, Stop date 08/02/24 16:31:00 EST, STAT, Start date 08/02/24 16:31:00 EST, 08/02/24 16:31:00 EST HYDROmorphone, 1 mg = 1 mL, Injection, IV Push, Once, Stop date 08/02/24 18:31:00 EST, STAT, Start date 08/02/24 18:31:00 EST, 08/02/24 18:31:00 EST ondansetron, 4 mg = 2 mL, Injection, IV Push, Once, Stop date 08/02/24 16:31:00 EST, STAT, Start date 08/02/24 16:31:00 EST, 08/02/24 16:31:00 EST Basic Metabolic Panel Beta hCG Qual CBC w/ Auto Diff CT Abdomen/Pelvis w/ Contrast eGFR Hepatic Function Panel Lipase Level UA with Cult Rflx Medications Administered Given Dilaudid 1 mg/mL injectable solution, 1 mg, IV Push Zofran 4 mg/2 mL Injection, 4 mg, IV Push Disposition Plan Patient Discharge Condition Stable, improved Discharge Disposition discharged home Discharge Prescription List Prescriptions No active prescription medications Follow-up With When Contact Information Make sure to follow-up with your [employer] at [facility]. Return to the emergency room if your pain gets worse or any new symptoms. In 3 days 08/05/2024 EST Additional Instructions: Patient Education Pelvic Mass, Female Abdominal Pain, Adult Problem List/Past Medical History Ongoing No chronic problems Historical Endometriosis Ovarian cyst Procedure/Surgical History Cholecystectomy, Hysterectomy. Medications Inpatient Dilaudid 1 mg/mL injectable solution, 1 mg= 1 mL, IV Push, Once Home alprazolam 0.25 mg Tab citalopram 20 mg Tab, Oral, Daily diflunisal 500 mg Tab, 500 mg= 1 tab(s), Oral, q12hr Symbicort 80/4.5 inhalation aerosol with adapter Allergies Compazine (Jittery) morphine (Itch) Social History Alcohol - Low Risk, 04/24/2023 Cu (more content not included)... Normal [facility] Comment on above: Result Comment: Elec tronically Signed By: Brielle Langford, Neha Valenzuela\.br\Date and Time Signed: 08/02/24 18:41 EST ED Patient Summaryon 025 ED Patient Summary ED Patient Summary [place] [id number] Patient Discharge Instructions Person Information Name: ANTONIA NOYOLA Age: 39 Years Arrival Date: 08/02/2024 14:41:13 Discharge Diagnosis: 1:Abdominal pain; 2:Pelvic mass Primary Care Physician: NONE, XXXX Provider Information Primary Provider: Neha Hannah M.D. [employer] Operator:None The exam and treatment you received in the Emergency Department were for an urgent problem and are not intended as complete care. It is important that you follow up with a doctor, nurse practitioner, or physician???s front end assistant for ongoing care. If your symptoms become worse or you do not improve as expected and you are unable to reach your usual health care provider, you should return to the Emergency Department. We are available 24 hours a day. ANTONIA NOYOLA has been given the following list of patient education materials, prescriptions and follow-up instructions: Follow-up Instructions: With: Address: When: Make sure to follow-up with your [employer] at [facility]. Return to the emergency room if your pain gets worse or any new symptoms. In 3 days 08/05/2024 In the event that this physician does not participate in your insurance network, please consult with your insurance company to find a nearby participating provider. Patient Education Materials: Pelvic Mass, Female; Abdominal Pain, Adult A MESSAGE TO ALL PATIENTS REGARDING OPIOIDS PRESCRIPTION OPIOIDS: WHAT YOU NEED TO KNOW Prescription opioids can be used to help relieve gnxwhydl-yr-jahnxg pain and are often prescribed following a [...] ??? If you believe you may be struggl (more content not included)... Normal [facility] Extra Blueon 08-02-2024 Tube Collected Plasma Yes Invalid Interpretation Code [facility] Comment on above: Performed By: #### 1 [id number] #### [facility] [address] [place] [address] HEMATOLOGYOrdered By: SYSTEM SYSTEM on 08-02-2024 Acanthocytes LM Ql (Bld) PRESENT *NA* (08/02/24 4:00 PM) Invalid Interpretation Code Remisol Heme Hypochromia Auto Ql (Bld) PRESENT *NA* (08/02/24 4:00 PM) Invalid Interpretation Code Remisol Heme Microcytes Ql (Bld) PRESENT *NA* (08/02/24 4:00 PM) Invalid Interpretation Code Remisol Heme Monocytes/100 WBC (Bld) 4.8 % Normal 4.0 - 14.0 % Remisol Heme RBC size Nom (Bld) SEE MORPHOLOGY *NA* (08/02/24 4:00 PM) Invalid Interpretation Code Remisol Heme Hep Func PanelOrdered By: AdorStyle SYSTEM on 08-02-2024 Albumin [Mass/Vol] 4.8 g/dL Normal 3.3-5.0 [facility] Comment on above: Performed By: #### 2 [id number] #### [facility] [address] [place] [address] Bilirubin [Mass/Vol] 0.5 mg/dL Normal 0.0-1.1 [facility] Comment on above: Performed By: #### 2 [id number] #### [facility] [address] [place] [address] Bilirubin.direct [Mass/Vol] 0.1 mg/dL Normal 0.0-0.4 [facility] Comment on above: Performed By: #### 2 [id number] #### [facility] [address] [place] [address] Bilirubin.indirect [Mass or moles/Vol] 0.4 mg/dL Normal 0.1-0.9 [facility] Comment on above: Performed By: #### 2 [id number] #### [facility] [address] [place] [address] Globulin (S) [Mass/Vol] 3.6 g/dL Normal 1.4-4.0 R emisol Chem Comment on above: Performed By: #### 2 [id number] #### [facility] [address] [place] [address] Protein [Mass/Vol] 8.4 g/dL High 6.0-7.8 [facility] Comment on above: Performed By: #### 2 [id number] #### [facility] [address] [place] [address] Hep Func Panelon 08-02-2024 Albumin/Globulin (S) [Mass conc ratio] 1.3 Normal 1.1-2.2 [facility] Comment on above: Performed By: #### 2 [id number] #### [facility] [address] [place] [address] ALP [Catalytic activity/Vol] 71 Int._Unit/L Normal 21-98 [facility] Comment on above: Performed By: #### 2 [id number] #### [facility] [address] [place] [address] ALT No additional P-5'-P [Catalytic activity/Vol] 9 Int._Unit/L Normal 6-46 [facility] Comment on above: Performed By: #### 2 [id number] #### [facility] [address] [place] [address] AST [Catalytic activity/Vol] 12 Int._Unit/L Normal 5-43 [facility] Comment on above: Performed By: #### 2 [id number] #### [facility] [address] [place] [address] Lipase LevelOrdered By: SYST EM SYSTEM on 08-02-2024 Lipase [Catalytic activity/Vol] 41 U/L Normal 13-58 [facility] Comment on above: Performed By: #### 2 [id number] #### [facility] [address] [place] [address] SEROLOGYOrdered By: Brooke Méndez on 08-02-2024 Beta HCG ( test) Ql Negative (08/02/24 4:00 PM) Normal [facility] Sero UA with Cult Rflxon 08-02-19 Bilirubin Ql (U) Negative Normal Negative [facility] Comment on above: Performed By: #### 4 [id number] #### [facility] [address] [place] [address] Clarity (U) Clear Normal Clear [facility] Comment on above: Performed By: #### 4 [id number] #### [facility] [address] [place] [address] Color (U) Colorless Abnormal Yellow [facility] Comment on above: Result Comment: Micr oscopic readings are only performed on those samples that meet specific criteria set forth by [facility]. Performed By: #### 4 [id number] #### [facility] [address] [place] [address] Glucose Ql (U) Negative Normal Negative [facility] Comment on above: Performed By: #### 4 [id number] #### [facility] [address] [place] [address] Hemoglobin Auto test strip (U) [Mass/Vol] Negative Normal Negative [facility] Comment on above: Performed By: #### 4 [id number] #### [facility] [address] [place] [address] Ketones Auto test strip Ql (U) Negative Normal Negative [facility] Comment on above: Performed By: #### 4 [id number] #### [facility] [address] [place] [address] Leukocyte esterase Auto test strip Ql (U) Negative Normal Negative [facility] Comment on above: Performed By: #### 4 [id number] #### [facility] [address] [place] [address] Nitrite Auto test strip Ql (U) Negative Normal Negative [facility] Comment on above: Performed By: #### 4 [id number] #### [facility] [address] [place] [address] pH (U) 7.5 [pH] Invalid Interpretation Code 5.0-9.0 [facility] Comment on above: Performed By: #### 4 [id number] #### [facility] [address] [place] [address] Protein Ql (U) Negative Normal Negative [facility] Comment on above: Performed By: #### 4 [id number] #### [facility] [address] [place] [address] Specific gravity (U) [Rel density] 1.007 Invalid Interpretation Code 1.005-1.030 [facility] Comment on above: Performed By: #### 4 [id number] #### [facility] [address] [place] [address] Urobilinogen (U) [Mass/Vol] Negative Normal Negative [facility] Comment on above: Performed By: #### 4 [id number] #### [facility] [address] [place] [address] Type of Urine collection method Clean Catch Normal [facility] Comment on above: Performed By: #### 4 [id number] #### [facility] [address] [place] [address] URINALYSISOrdered By: SYSTEM SYSTEM on 08-02-2024 Bilirubin Ql (U) Negative Normal Negativemg/ dL [facility] UA Auto SS Clarity (U) Clear (08/02/24 4:31 PM) Normal Clear [facility] UA Auto SS Color (U) Colorless 1 *ABN* (08/02/24 4:31 PM) Invalid Interpretation Code Yellow [facility] UA Auto SS Comment on above: Interpretive Data: M icroscopic readings are only performed on those samples that meet specific criteria set forth by [facility]. Glucose Ql (U) Negative Normal [...] dL [facility] UA Auto SS pH (U) 7.5 *NA* (08/02/24 4:31 PM) Invalid Interpretation Code 5.0 - 9.0 [facility] UA Auto SS Protein Ql (U) Negative Normal Negativemg/ dL [facility] UA Auto SS Specific gravity (U) [Rel density] 1.007 *NA* (08/02/24 4:31 PM) Invalid Interpretation Code 1.005 - 1.030 [facility] UA Auto SS Urobilinogen (U) [Mass/Vol] Negative Normal Negativemg/ dL [facility] UA Auto SS URINALYSISOrdered By: Yusef Chung on 08-02-2024 UA Spec Desc Clean Catch (08/02/24 4:31 PM) Normal [facility] UA Auto SS eGFROrdered By: SYSTEM [employer] on 08-02-2024 eGFR 114 mL/min/1.73 m2 Normal >=59 [facility] Comment on above: Performed By: #### 1 [id number] #### [facility] [address] [place] [address] CBC AND AUTO DIFFon 07-21-19 ABSOLUTE BASOPHIL 0.1 X10E9/L Normal 0.0-0.2 [facility] Comment on above: Performed By: #### Leila JOE CMP, 3 ####[facility] ([id number])[address] [place] [address] ABSOLUTE NEUTROPHIL 4.1 X10E9/L Normal 1.5-6.6 [facility] Comment on above: Performed By: #### Leila JOE CMP, 3039-08 ####[facility] ([id number])[address] [place] [address] Basophils/100 WBC (Bld) 0.9 % Normal [facility] Comment on above: Performed By: #### Leila JOE CMP, 3039-08 ####[facility] ([id number])[address] [place] [address] Eosinophils (Bld) [#/Vol] 0.1 10*3/uL Normal 0.0-0.4 [facility] Comment on above: Performed By: #### Leila JOE CMP, 3039-08 ####[facility] ([id number])[address] [place] [address] Eosinophils/100 WBC (Bld) 0.8 % Normal [facility] Comment on above: Performed By: #### Leila JOE CMP, 3039-08 ####[facility] ([id number])[address] [place] [address] Erythrocyte distribution width (RBC) [Ratio] 20.0 % High 11.5-15.0 [facility] Comment on above: Performed By: #### Leila JOE CMP, 3039-08 ####[facility] ([id number])[address] [place] [address] Hematocrit (Bld) [Volume fraction] 34.2 % Low 35-47 [facility] Comment on above: Performed By: #### Leila JOE CMP, 3040-3 ####[facility] ([id number])[address] [place] [address] Hemoglobin (Bld) [Mass/Vol] 10.7 g/dL Low 11.7-15.5 [facility] Comment on above: Performed By: #### Leila JOE CMP, 3039-3 ####[facility] ([id number])[address] [place] [address] Lymphocytes (Bld) [#/Vol] 2.3 10*3/uL Normal 1.0-3.5 [facility] Comment on above: Performed By: #### Leila JOE CMP, 3 ####[facility] ([id number])[address] [place] [address] Lymphocytes/100 WBC (Bld) 33.8 % Normal [facility] Comment on above: Performed By: #### Leila JOE CMP, 3 ####[facility] ([id number])[address] [place] [address] MCH (RBC) [Entitic mass] 22.6 pg Low 27-34 [facility] Comment on above: Performed By: #### Leila JOE CMP, 3039-3 ####[facility] ([id number])[address] [place] [address] MCHC (RBC) [Mass/Vol] 31.4 g/dL Low 32-36 [facility] Comment on above: Performed By: #### Leila JOE CMP, 3039-3 ####[facility] ([id number])[address] [place] [address] MCV (RBC) [Entitic vol] 72 fL Low 80-100 P [facility] Comment on above: Performed By: #### Leila JOE CMP, 3039-3 ####[facility] ([id number])[address] [place] [address] [place] [address] Monocytes (Bld) [#/Vol] 0.4 10*3/uL Normal 0-0.9 [facility] Comment on above: Performed By: #### Leila JOE CMP, 3039-3 ####[facility] ([id number])[address] [place] [address] Monocytes/100 WBC (Bld) 5.5 % Normal [facility] Comment on above: Performed By: #### Leila JOE CMP, 3039-08 ####[facility] ([id number])[address] [place] [address] Neutrophils/100 WBC (Bld) 59.0 % Normal [facility] Comment on above: Performed By: #### Leila JOE CMP, 3039-08 ####[facility] ([id number])[address] [place] [address] [place] [address] Platelet mean volume (Bld) [Entitic vol] 7.3 fL Normal 7-12 [facility] Comment on above: Performed By: #### Leila JOE CMP, 3039-08 ####[facility] ([id number])[address] [place] [address] Platelets (Bld) [#/Vol] 517 10*3/uL High 150-450 [facility] Comment on above: Performed By: #### Leila JOE CMP, 3039-08 ####[facility] ([id number])[address] [place] [address] [place] [address] RBC COUNT 4.76 X10E12/L Normal 3.80-5.20 [facility] Comment on above: Performed By: #### Leila JOE CMP, 3039-08 ####[facility] ([id number])[address] [place] [address] WBC (Bld) [#/Vol] 6.9 10*3/uL Normal 4.0-11.0 [facility] Comment on above: Performed By: #### C HEATH CMP, 3039-3 ####[facility] ([id number])[address] [place] [address] [place] [address] COMPREHENSIVE METABOLIC PANE Van 07-21-2024 Albumin [Mass/Vol] 4.3 g/dL Normal 3.2-5.3 [facility] Comment on above: Performed By: #### C HEATH CMP, 3039-3 ####[facility] ([id number])[address] [place] [address] ALP [Catalytic activity/Vol] 75 U/L Normal 39-130 [facility] Comment on above: Performed By: #### C HEATH CMP, 3039-3 ####[facility] ([id number])[address] [place] [address] ALT [Catalytic activity/Vol] 25 U/L Normal 0-31 [facility] Comment on above: Performed By: #### Leila JOE CMP, 3039-3 ####[facility] ([id number])[address] [place] [address] Anion gap [Moles/Vol] 8 mmol/L Normal 5-15 [facility] Comment on above: Performed By: #### C HEATH CMP, 3039-3 ####[facility] ([id number])[address] [place] [address] AST [Catalytic activity/Vol] 26 U/L Normal 0-41 [facility] Comment on above: Performed By: #### Leila JOE CMP, 3039-3 ####[facility] ([id number])[address] [place] [address] Bilirubin [Mass/Vol] 0.6 mg/dL Normal 0.3-1.2 [facility] Comment on above: Performed By: #### C STEVE JOE, 3039-3 ####[facility] ([id number])[address] [place] [address] [id number] Calcium [Mass/Vol] 9.5 mg/dL Normal 8.5-10.5 [facility] Comment on above: Performed By: #### C STEVE JOE, 3039-3 ####[facility] ([id number])[address] [place] [address] 14510 Chloride [Moles/Vol] 107 mmol/L Normal 98-109 [facility] Comment on above: Performed By: #### C STEVE JOE, 3 ####[facility] ([id number])[address] [place] [address] [id number] CO2 [Moles/Vol] 21 mmol/L Low 22-32 [facility] Comment on above: Performed By: #### Leila JOE CMP, 3 ####[facility] ([id number])[address] [place] [address] 39349 Creatinine [Mass/Vol] 0.83 mg/dL Normal 0.40-1.00 [facility] Comment on above: Result Comment: METH OD TRACEABLE TO IDMS STANDARD Performed By: #### Leila JOE CMP, 3 ####[facility] ([id number])[address] [place] [address] 15491 eGFR (CKD-EPI) NON-RACE DEPENDENT >90 Normal >59 [facility] Comment on above: Result Comment: Reported eGFR is based on the CKD-EPI 2020 equation that does not use a race coefficient. Performed By: #### C STEVE JOE, 3039-3 ####[facility] ([id number])[address] [place] [address] 95059 Glucose [Mass/Vol] 118 mg/dL High 65-99 [facility] Comment on above: Performed By: #### Leila JOE CMP, 3039-3 ####[facility] ([id number])[address] [place] [address] [id number] Potassium [Moles/Vol] 4.0 mmol/L Normal 3.5-5.0 [facility] Comment on above: Performed By: #### C HEATH CMP, 3039-3 ####[facility] ([id number])[address] [place] [address] 25768 Protein [Mass/Vol] 8.2 g/dL High 6.0-8.0 [facility] Comment on above: Performed By: #### C HEATH CMP, 3039-3 ####[facility] ([id number])[address] [place] [address] 24539 Sodium [Moles/Vol] 136 mmol/L Normal 134-146 [facility] Comment on above: Performed By: #### C HEATH CMP, 3039-3 ####[facility] ([id number])[address] [place] [address] [id number] Urea nitrogen [Mass/Vol] 8 mg/dL Normal 5-23 [facility] Comment on above: Performed By: #### C HEATH CMP, 3039-3 ####[facility] ([id number])[address] [place] [address] 44731 LIPASEon 07-21-2024 Lipase [Catalytic activity/Vol] 31 U/L Normal 17-40 [facility] Comment on above: Performed By: #### C HEATH, CMP, 3039-3 ####[facility] ([id number])[address] [place] [address] 26387 URN MACROSCOPIC NURon 2024 BILIRUBIN AUDREY Negative Normal NEG [facility] Comment on above: Performed By: #### N UM ####[facility] ([id number])[address] [place] [address] 48124 BLOOD/HGB AUDREY Negative Normal NEG [facility] Comment on above: Performed By: #### N UM ####[facility] ([id number])[address] [place] [address], [place] [address] GLUCOSE AUDREY Negative Normal NEG [facility] Comment on above: Performed By: #### N UM ####[facility] ([id number])[address] [place] [address], [place] [address] KETONES AUDREY Negative Normal NEG [facility] Comment on above: Performed By: #### N UM ####[facility] ([id number])[address] [place] [address] [place] [address] LEUKOCYTE ESTERASE AUDREY Negative Normal NEG [facility] Comment on above: Performed By: #### N UM ####[facility] ([id number])[address] [place] [address] [place] [address] NITRITE AUDREY Negative Normal NEG [facility] Comment on above: Performed By: #### N UM ####[facility] ([id number])[address] [place] [address] [place] [address] PH AUDREY 6.5 Normal 5.0-8.5 [facility] Comment on above: Performed By: #### N UM ####[facility] ([id number])[address] [place] [address] [place] [address] PROTEIN AUDREY Negative Normal NEG [facility] Comment on above: Performed By: #### N UM ####[facility] ([id number])[address] [place] [address], [place] [address] SPECIFIC GRAVITY AUDREY <=1.005 Normal 1.003-1.035 [facility] Comment on above: Performed By: #### N UM ####[facility] ([id number])[address] [place] [address], [place] [address] UROBILINOGEN AUDREY 0.2 eu/dL Normal <1.1 [facility] Comment on above: Performed By: #### N ####[facility] ([id number])[address] [place] [address] Coding Summaryon 07-13-2024 Coding Summary HTMLBase 64 CvdglgzgNYp1oBu+PGhlYW Q+MP3UKIUuL02lnCWyaA7n H2DYFMvAAtpqDOXIIXuJAh YbfzOdST4tbPLsCKSq IC8+XJ9gFZAdWrolhWSkn2 V2tME6K19eoi2wJJogdPG3 KCUyKtDkvjpvf2cisKj2MK cuNmluOyBt SWHjoU32GLR8wT46Fw42zV TwyRDlr4zvnJb6EtBhWRVy YDB0yRrxGJjnl5BhHVFuW5 3xgOIsp1I4 GEBzeRsieUQyZsYaqSX9zJ 6hESxhhnlni5dectewDtz6 jn20yUKji6I6cDG7X8Xwjk X3DSXbyVYk NgdffWOCxO8kvfzlb2svpx xzFgVxKYFkKAb4QCj5BILf bXnsFiHzHW38BTA3JYXbuo ZoB3OpUNWz oWtuKyE7j1R9Vy4SP9FCUl ziK7EDJZOXISftyXP+PC90 vy26H7YpMecpApe6EJSfXW Z3pFY3mR9j KLPcJPsvb3C5lHQ7G1Fsia Bwsa8hp3zmUDPnUHsmG70j iDGjh6C6WNFboUV5OZXeoU usEeKgkM84 Oyc+MSCozOycj8UoBqbmq3 kmd0oijKb1StalYMQevqUe aSksRBA2z6AfGv0aZXKbmK C8yBY3tB6y EgXsLtN5PEvhW127SqZhyE KhYcstO72wM7TdtDG+PHRy Jwl8DCVmdZvxDY8sQ3GrJC RpbmctbGVm vIrcCA1fQSBozcdqAEMyhE 9gMPEvE3o1CxJlNaO2NTte L7QxFIHvcgrsDy86qI5lIh GhAaQ2BNpe Q1ErlzX9UPIrlHSyGShjGF N8T53ol3C9VPAtWVDmGSE6 sFV1xG7amXaisfulrFWqwQ sgdmVydGlj MCekHJwrL604SRCdvTozFl NvZGluZyBEYXRlOiAgMDEv MzEvMjAyNTwvdGQ+PHRkIH C7zOitTRMm pVUhXNdiZq4yqPftsRhdMO 9qIATdpmuyGAWuuO0pFXAw xKQjtEecKO1jDIMhfyaex2 10ZzMxXZF4 TGTokRAlK1IwxR8oWkBmIA VhUMEhS5WipVCuUBljR598 HRfdEtB7KYCliuFhH5ZxOW FsaWduOiB0 u7P2Mz2Kr0LpjhfiB1XuiA KwVgQlNfndMBw3G3VxXiby dHI+GF20ZMThRV99CSx4BD S9iByrUBtw TZKjZ2AigA9tHqBsJNYiIP RkOyc+PHRhYmxlIHdpZHRo CFxgKERbAiQyiKqgWQ4uQk 9yZGVyLWNv hAekrKUzWbQes0wiHNKyBZ zdLF7ywZmaT1IykPH5CGGa y0m6Ai98M01bC8XjtQN+PG PrpMJ7xSI6 lG6nReWrNvM3MKuqO095Xp CqsUGhHrrlk4gki8oboZa8 UrD7LSUgcnPqaQusMZN5m9 KxLh82I04s IHdpZHRoPSIxNSUiIHZhbG lpxg6bhB5gGy6+PGNvbCB3 eMC1jF0yYyHgThW6SJymG8 49InRvcCIv Hwmea7lce2vlqJt7PgGlNO XquqJurCksZVL1z0ImDx50 N8BdzArqs5QmXvx0ta13kK Bjc1Y0jFU1 R3ZgYGOylgywlRZsfGlmBZ 1yWYKypsstUVUsoW9nJTMm K2b7OjYeXeR4KOkrA0Wjhy D8FKIicUOc HBZpxICMfL1osmrld8qnda izCkXfKZPhRBp7WRv2JSWy dYscZkQsOVO6ThF2LJK0lD MxiQ2lcHlt bglvwJ0sLfq+VPZ4cVUgkQ JGDL3xOrrbqXP+PHRkIHN0 hIkaZOacDNYoiM4iCDVyQ1 v0HxPdKjU6 PVmvV3YambV6UZIavOVdMK UtpXDWfT7apapxf6dcffac ZlVqSRUgKEc8APy7YWTsrG duOiBsZWZ0 FrH6EMU4fHEthU3yuQlqbe xfkK6tUqk+QmlydGggRGF0 ZIu1C8YiTpg9GQAlyRxgCN 0ncGFkZGlu Yk6xdCtmsXcnXX0iOFBswd bdd623KtIzv1cvMTQlaAOe FTxdLUO1U84rr9H4ZIJrJG MmYAI5cLZ2 qQ6ycRroaghkoJJdbYxnjd ApiHnoQKygSUscT292RNOp uKpsWzDnBVl5X4QdHpz2EF MvfNpcVS3e kJPxLPrxSy8asCwdiQnuQK 9gHKZuheevb713VpTgz0mt JNPzwKHiXDlmZRX6B42nn7 P6OMBwYZRp GNF7cHU0qS9jxVioqanebX VmdDsgdmVydGljYWwtYWxp J721IFSueVbcWvNmyZl8K1 ZaMqc6UOAm wKclUF5bsUVuWJrvHf0riE myeUdoNY6lVUDlkmtvj087 UzNtg6yvDZEuwSOkNFheXC P8L24sy5Y0 GSPvPTThGTL6zKZ8lX9zoV lnbjogbGVmdDsgdmVydGlj CJozGPbeK164IVInhIfaUy BhdGllbnQg HOkmKVt9E7CjBtjzvFA+PC 86GUIqCU74aKGqjRXec2ci nAf8NlYcURQmQPU8iZbwLG gkd6JvAGCc E19yhKHlp1E0FFFumIduaB ZuNuPisBI1uA9hSDektlxq w6mxvipvAhmys6xhmq43bZ 07P12fBRsb ZHRoPSIzMCUiIHZhbGlnbj 9haH3wLe9+WGZbbIH6rBB8 iJ8lBSDpCmW1MRxaH843Oa RvcCIvPjxj q3jme9pdsLk1PfS6VFOyeu PhxAdfEYY4e5KjRs42P72t IHdpZHRoPSIyMCUiIHZhbG hgbv8ewA4n Ii8+ZITesRK1vXE6yF8eBe PhClM2RSltC787SbSweRPi LnnpM00rI7HrhAR+PHRyPj p6JXMrtHxl AL8dfTJeQQknSm1wVJE9Vc FiTsNwXTozP5EbWVSsjczr tfzdbSF4USGwAXRjnL54Ul 9udDogMTBw iXDTeD1kwlnlp6qvvxofCo TaVCVrHCw3KJi5DNXthBnp FcSdWSQ6ReB7BSM0sXAnxA 1hbGlnbjog eW0kV9KiCUVtpgksSq52cQ 0uRkVlWhH2JEjzNjk+SE9X QVJELCBTVEFDSUUgTEVFPC 82IG91sSDa l0I9bNL6F9IyLFLrnkzaae jusBB8SECgJENpsD77aQXj SJouBd7ef8C2t309OLQmGG ZbnK46Cq8m vVmvPZWbwGPZsU1fhzyld3 dbuinwSqPfDPFhEWz0ZRk3 WXUtzJwdOtArBJH8PwF6MT W2jCCmnY5q zPhkrrpxwC7hTaj+MDcvMz LoLWf9LpkkiYM+PHRkIHN0 zOvgGBgxTONzvH5kXQChO9 s1ArXfLfO8 FUqqG6PtREYntjkeFo81tE 7gNcZuQlY4KZqpS6HqwcH8 GTRcnMWqUCvgRVG2A36im8 E0HPMtILSk NZV9oRL6zZ7uaDnmfqpahO VmdDsgdmVydGljYWwtYWxp I342MWGmlRxqSjP1UXuwIZ FtSH99ZY30 gSCgy6T2jMM5F6SuZLAbwq vwigxvcWB0YGBhLAGxrQ24 rBPpDFldWc1hd1V9m426XQ WvSTBbgV19 Ly5pnEbqOGLgfECPvN0okk ejm0wjfztlYeElELDwEKd6 MZx5XJSzhShgGeHiXJT3Cc S8IAB4fGFt pV2xwMlwmuxeyB7gPgu+Rk FHPMsZQH51CW70nQMnv0X6 hKB6O1OdSCXocbdxsobgiY C4QTNgEJTo rO60lHJrZMdbQq7he2O8k0 39OYWcSYExjB21Bp5msBzs TQTglVZElJ1gbrhvw9kxkk ogIzAwMDAw RIr5OIo9XKAqqKsnQbSaUE Z9TvR5IXK6tNBgyQ0wqYzx lmwpcR1bEsj+OB8rsictgu A8AF35QE17 F1WoYjsooFLjcFX+PHRhYm xlIHdpZHRoPScxMDAlJyBz dMftGL0fLr3mPITfYTOvjQ xhcHNlOiBj y0czZGJmKIavYL1xdDkrT2 JuwIT3XEHzi6g6Xu00R82a N0TuiOY+YDFngYO9aIB4oV 3aHnUvKyE2 EQjwB521UoSebNAmDygxp3 itt6oxqLm2ZvDrBQGljsGf xBipAGM6m3JkEx37S24zMX dpZHRoPSIy DSLpRDSqsEjkfd5ayB4oAl 8+PGVxnST6uGB0rE2sSxIg SeK6EBcqU406CePujANpHv amC81bC4Mq dXA+DMMrFtw0XDVhvWrhFI 8puMYkPUuqPk9nLZF1PpVu YcTjKMffH4JpVAGpexfhjh wpbAX0YDTr DSNvmY28Vp2sfCgbSr6mLW BbBSG2QENowMUyP7YanB1o FjJdYZMxVCYbB7PawXDlBL euY116YRto RsF5AACpzpHxU3PmKJBrvT ryFfZ4l4Z7Oh9CvMdycRPq NV6gJiPfQDe5F7XgJhj7EY RbwSvaZX6l iFWyNGbqIy5zgEssnOtoDC 2aNVEyudswq221UkPie0dn ORYlkMKeLUkdMDB1L90ml1 Z8AGWmRXPn CMN5tCW2rZ3vaNlhbeceiL VmdDsgdmVydGljYWwtYWxp D902GAVquMaqVsTOOjj7M1 VyQaq4NMHs iUadUH9wyJUuOWjcQu1ntK tsuKnrOE0kKCAiccmrm563 WhNyl0wqJYMhnPUkSNetRM A6G01dc6E6 ZDAwUYRfATI2bIP6nX9djQ lnbjogbGVmdDsgdmVydGlj BGhhXLukV033ZFCaoNeqMt 1UZoq6F4Hp Igs4JCOvuOvhZO4hoBEuFQ ouTw3keKizdQdfCQ5tUDIw levgn143JnOjl9rqMYWdwT QgVGltZXM7 D76ka8M3NCLcKZOiETO5mB G1kC9ulVvfwauptJDlfLmf peUwxAvaTMsaGSncT788JV RvcDsnPlBh eWVyOjwvdGQ+NT25to32G6 SdQcdpCst9OZBjNGH2yOZ8 hR0sVODdUXtjz8Y0oYF8Z4 JgcyXypd3s b2x (more content not included)... [facility] Coding Summaryon 07-12-2024 Coding Summary HTMLBase 64 ReiyceidSLd3iGb+PGhlYW Q+LK3MOZXoV27asOZhiN2k H3OQQCbFAgtcQJABMGfHZq JxtiKhQU5nuVNmYVFm IC8+YS3uJZNdGuenyIGds0 X2xUP3Q55ddj0wZOgjpQK4 UVKqZrMwaoiqe7vbcAt3UV cuNmluOyBt DAAkbN29WNS4eZ49Mn40tF XhrBArw1iosOf0SfKgOLKy VWY1dKjiNHmbv4RqOGPsF2 9duWXla8A8 IOWrpDjhhKUhXaPbqJM3oM 5xQYaendycg3stsqkkXgk7 pi44pIBgk8S8vOJ0Z1Rhtf W8QEJmtXNy DlibwXPOwU0nyvuoc7egxm ueJmAmYBIiYKo0HNa5FPQd gZqqSyVwGZ88IOW6FMHwdq YuN4EnILHq iXujKiK9p1I4Xi5IO5MLJl khE2WJKLPRDQpxrLZ+PC90 aa02E3VzUsltFnw4PMRxWJ A4lWC4fD2z TEEsFKtvw6W4uBK2K2Hfvm Tzkv1lu4ahBNMjFGedH03b qCIjb4B5WAYmeAR3EFJjrV cvCoYspU37 Oyc+RJIztQtgv8YqRzjlq3 wmz7samTb6NrbtKIGytwMq wMdmELF9y6RlRg9tTTOdfH Y4mGZ6rN0o UdOqYkW0PNjmV892OfKxaS YkPmtqX53nT0MgsNN+PHRy Zuz8SNEgpVsaKO7mW8PmBD RpbmctbGVm eFgqCW7mYXQjsvfnPEGyeR 5wXOGuS9e3KyMcQiH4KIdf A4CsOEEjfdqsJa29yI4uGd YpLoB5RVry O6IsjsJ2IKNveMSxTXdjUQ J9X79cg7S2PNUdICSlABD0 hMG6oP7arTsrgysmhJOwiG sgdmVydGlj ETclYPdmV347FBSghNarKl NvZGluZyBEYXRlOiAgMDEv MzAvMjAyNTwvdGQ+PHRkIH Z1rZavFASx zMPeFZnxWa9jsKxsyIswQX 3dBAFbyqbmGFHoxC5qPAKz iCFvaNzuJQ1dFUNyydgxd6 38XlLpSDH8 VVOoyNLxV9YvgH1gTzUbMB ClQGDwU3PerUMjZQfsY241 NRfaLiK1VRYlhsRlO6CsXB FsaWduOiB0 m0B4Rw1Bz3PhyglmV8AxeS YoXdNuFnflRCq7S5YkIyzq dHI+KJ85YKEnVH59MUy6GC Z5tGlnKGkd IAQaM0DqiK0nAzLaQXEeMP RkOyc+PHRhYmxlIHdpZHRo GImmACXzKxCwdXpgLH6cEl 9yZGVyLWNv vGiseFZjYkIei3ybTFTnYJ izFL4tlItqV8BrbQB4IVEx k9w6Wi58T89yD9AleKM+PG GwnBK3eVA8 uG8iPgMhZiS7FGvaH251Jt RwhYCvDpgsd8lkc2dieMw2 KqJ7SDXpkwBhaSweCXB5b3 AfFn76L54u IHdpZHRoPSIxNSUiIHZhbG ieac0iwY7kSl8+PGNvbCB3 sUR4bP3rAjVfQmN9EGywQ0 49InRvcCIv Ajixp8inb7adlSl1TzOlYA ZhjaXdmGrhRBE3m6HaBy21 E0DrbNyoh3RiVag7ni03kQ Twr3L6xYA9 X3PpUOGicdewrCNezQruAU 4bPPElkqmgATUeyP3cWRXi Q9y4QsFfJzW0IOumE6Jkdq F8FGLpuQHq WUOngIFEaI7zlbhkp1icfx kvFjNdUQKuEOd1VAs6FJDe tUvgXrBnRQO1OpV0MQH1bN LvdP5nnDbt fpzeoG2eWgn+SNZ4pZEtuG KJIV2jRwgbrVU+PHRkIHN0 pCvgCMhgPKPjmV4zNBIbJ1 p4RwShZpT8 LSlvD5ChplG6ZLArhKPkFL QppEARnW8xuwbvg6holwew CpSjAEIbXYa1BUo2UFPgiI duOiBsZWZ0 UeO3FQE7aPCwvO7bfNdrdk ajiW9mVxq+QmlydGggRGF0 JMd9S7UeYwf9LDRmdJlaBV 0ncGFkZGlu Jr3rcVfvxAfwPF8hQXJhye dkk852DxEhu4tfSYFqiGPw IEpyHOP8C80xi8W1ABVdPL EsLXH2rCB0 cM0pkKutmqkfmJTmiWevoq SznGcnBMhaPKzrR292SOJb jZloHkInHGj8B7YnRil4HW HdgYupTF0r aETcVYhrRk8gfShocSppUL 9jWKQdxwsrs770JsEka7ym QIPseCVkTWfoPTD1L71tu7 P7TQThZUZc ZWN8yGD0tI5qzKwdozrkfZ VmdDsgdmVydGljYWwtYWxp M481NHDidZpmXdRpxAz1S0 WeYdu1YFTm hXywBW7ajXDbXMqxHz3kcD xcwHsaTV6iIDPgacjwq727 CyFdo7blAKMslIUmEBndUI H0G26tb1G5 QSReEVOsOYP1qIA3vT0wzD lnbjogbGVmdDsgdmVydGlj YUbgQAsgG894TFRogVqoEc BhdGllbnQg RMjvEZx6N5EbDmxuzSF+PC 75TJTjCR52wHBjhPZgs6zo mNp8EvEiPEHfBYZ5bKhtSA cfd0VvFNQp A45wsVKjk3E5WNNpjNxxsQ SlEbPadMS3kH1lQJlvswtp s7ofyqklJmgmw7xjnm66bO 38W80pLJpi ZHRoPSIzMCUiIHZhbGlnbj 1avK5kEo0+KSIqvLA7sIV8 uF3bLQGpRyW3LBspK637Jr RvcCIvPjxj h7umi0mflCg5LuE5IYJhoi WwnUjwOSD2n3VeUe36Z50q IHdpZHRoPSIyMCUiIHZhbG wdrk5lcL4k Ii8+VCAlaIV6hAO2eY9fZk WzAkQ6PKbaC764NoMhtXCk MglhG94vP5NdjLD+PHRyPj d0IXFnbXzh LI0yeFFiFCbsNr1hXAB2Zm BgDbVvBIhbA5HkSBSpyxyq pgsdhPA6BEGqZUNhoX15Zw 9udDogMTBw gJQEnQ5yaeami5abemlyCd SkICIxDVd3CBf3FWAbuHxk XpHiZAO1UkC0ZVK3nKByiR 1hbGlnbjog sQ0nS7QxJGHxpfjvRz73uW 1xIfDgBjB7BXxrAgb+SE9X QVJELCBTVEFDSUUgTEVFPC 57HP53fUYl o2Z4xOC8J1BoUFJxtncrss yhdTX9YVZtQNOjfC83yFOr BQepQq4yp1N0u674RXSzTX NtqJ03Ns5y rXmwNNPgcYHHyG6rmnwji4 tkrlyqZhOwORZwUSu8JEg8 NWGwhWzbLxSzPMQ8XhQ1RX R1bKGkfY9j kFvbckavbF1dGfb+MDcvMz IwQBu3TkisbLG+PHRkIHN0 bQxnKMjkXOPltG4qQVDnL1 j6QdXwPxV6 GKoxD9XxYTHwtpnoKh62kK 0jEbGwDlV3RSuaT3ZjdqU8 MSLqgWIhTHiaFAM4X04eh9 G1LYDwHZLf BIS1gNK0eT0ccUmzmqmixM VmdDsgdmVydGljYWwtYWxp M396BKNsmAggMgO6WWinWI IsVT02WY30 aQPrf5J0uFD6N7YuYHQoyi zvzqbogMU2QTOdVGQrqO21 oKPyWEhfTl8ak4K1e467RZ IqXCJgdS93 Xv8noEbvXPDgjVDZnK5zrx ocp0jzuprjAbFvMFAkUTh5 HCa0KQNiuHiiAbXxDYV2Ty B3IRN4uWPy vM7jzAlpmkkevX7lSto+Rk LPDFnVUO80KT91cBWzf1G1 kGY7L3XcNJMtyktlpvryzR X3FSWgOTNl bW87rVCaJYhoDz0oh7I8i3 21VODxVGTbkT20Ah7xyWsd RPRodIAVuL0bckvju1efvd ogIzAwMDAw GLm0GWg9KAFsxChrEvXkWI C4GaE4UXU8aEDpfZ2heEis wsbupG7hIyl+BG3zobgjvi O7OO02QE55 V0YlTwletKFpmSX+PHRhYm xlIHdpZHRoPScxMDAlJyBz iQszRJ8sDc8dIMAbNBUkiB xhcHNlOiBj s1qgETYaQWmnVU5soFzkR1 VncOR1ZSZas0g6Ts27E11e H1NecDQ+GULcpQE4lJN5uC 9nEyRxJlW7 FWfdN839ExYfnHVuYkfdd5 hty0yqbVi3IxJeBEStghQe oRqcRAL3m1OzKo27E32bFX dpZHRoPSIy XOLjJWPmyPnscf5gtU1sIj 8+RDMalTZ5cER1oV8kShHy MmL3KMzfL180DgGkpMGmLm awZ25lL3Px dXA+GEYlBrq9UQZkzMhfKM 3lzMIoXUsaNr5vMYL2BkBh NvNqBEwrM9WdBGFtuormlu usmLJ3PHJe BTAqpJ47Tf9jlIabVl0dQA ZoNGE2VGTluNPhX2UbtP5j KhDeLDQiAXCzL0UqsDBlSV exE466RFdz AqH6EJHxfyBuR7LoVOWxnM rjOtP1w3J2Gx6NhLzqrTPu HP0kZpThEYi0W5LiBfo2QY UyoWbaGV0c iIDbXYjpDa1xbVxlnRbxRP 9gRMXqnuzry056OiIdi9yv TTDysVBfAYfwBDZ9Q09cz0 N5VZAaYUWr BED7lCZ8rP5mmHftjecuvO VmdDsgdmVydGljYWwtYWxp R270CZMlcPhpVtYTOsx8W9 VhZmj2UIPq uUhlXE5ehGAhGVrpDf7dmA xucJywNY2vQCCudnkzj285 GtOod6udPIJbnSFsOBwuVY Z1F74ld9Z9 KTAaMLKlEZQ6qHT8jM8zyB lnbjogbGVmdDsgdmVydGlj KQnbBZvlD898FMUmjHtsLg 2AOmm6V9Ga Vda0IXBkbWydER4aeVLnMM vyRd5bhQzmrMbpOW0gXCRn dnohg259IsPoa9keETTgeB QgVGltZXM7 N61dg2I6GHBnHHSfEVN5kF D1yC2seZatzfvrkYIcoEuq puGyuQflCXwgHYafQ563LJ RvcDsnPlBh eWVyOjwvdGQ+AJ57kd57N2 BhCpehLpy0LEGeYMO3sTG8 dA7dQFJtKOroc6E0gID2Z0 EzzpIbqc2o b2x (more content not included)... Normal [facility] ED Clinical Summaryon 2024 ED Clinical Summary [facility] - Emergency Department [address] [place], [place] [id number] ED Clinical Summary PERSON INFORMATION Name: ANTONIA NOYOLA Age: 39 Years Sex: FEMALE : 1985 MRN: Acct#: Visit Reason: Abdominal pain; ABD PAIN Arrival: 07/10/2024 21:55:42 Discharge: 07/11/2024 00:52:00 LOS: 000 02:57 Check In: 07/10/2024 21:55:42 Checkout:07/11/2024 00:52:00 Address: [address] [place] [address] PCP: Provider, None PROVIDER INFORMATION Provider Role Assigned Unassigned Eran Hill MD ED Provider 07/10/2024 22:48:22 07/10/2024 23:35:16 Celestina Saenz RN ED Nurse 07/10/2024 23:21:32 Eran Hill MD ED Provider 07/11/2024 00:22:30 Jan RNDixie ED Nurse 07/11/2024 00:34:22 VITALS INFORMATION Vital Sign Triage Latest Temperature Tympanic Temperature Temporal Artery Pulse Rate 108 bpm 108 bpm O2 Sat 99 % 98 % Respiratory Rate 20 br/min 18 br/min Blood Pressure /98 mmHg /98 mmHg MEDICAL INFORMATION Medications Given: Allergy Information: Compazine; morphine PHYSICIAN DOCUMENTATION DISCHARGE INFORMATION: Discharge Disposition: Home Discharge Location: PATIENT EDUCATION INFORMATION Instructions: Chronic Pain, Adult Follow-Up: With: Address: When: Follow up with specialist Within 1 to 2 days Comments: Reviewed discharge care instruction. Continue with therapy as outlined by Dr. Hill. Contact your primary care provider or FITNESS TECHNICIAN for further evaluation and treatment of your condition. Return to ER for any worsening symptoms especially any symptom that concerns you. DIAGNOSIS: Abdominal pain, chronic, right lower quadrant; Other chronic pain Patient Understands: Yes - Patient/family/caregiv er verbalizes understanding of instructions given Comment: [facility] ED Note - Physicianon 2024 ED Note - Physician Patient: ANTONIA NOYOLA Age: 39 years Sex: FEMALE : 1985 Associated Diagnoses: Abdominal pain, chronic, right lower quadrant Author: Eran Hill MD Basic Information History source: Patient. Additional information: Chief Complaint from Nursing Triage Note : Chief Complaint 07/10/2024 22:18 EST Chief Complaint Here earlier-sts was no help. Pt sts 8/10 RLQ pain rads into lower back. Acute on chronic endometriosis, hysterctomy in Mar, sts has retained ovary. OBGYN cancelled follow up on pt and reschd august. Took toradol and tramadol. Out of oxy that was Rx.d 07/10/2024 14:49 EST Chief Complaint Patient is here for right lower abdominal pain. States symptoms started four days ago. Hx. of endometreosis. . History of Present Illness 39-year-old female, seen in room 9. Awake, alert, sitting on the side of the gurney, bouncing her right leg. Indicating that she had significant pain. Patient tells me that she had stage IV endometriosis. She stated that she has been having significant right lower quadrant pain. She stated that she had surgery performed by her [employer] at [facility], several months ago. Patient reported that she had hysterectomy, and bilateral oophorectomy. She stated that she did well, for the first month or so postoperative, then started having right lower quadrant again. Patient presented to this emergency department, had CT done in May, showed that she had a right adnexal mass. Suggest that this is a remnant, or regrowth of ovarian type tissue. This was also noted on another ultrasound, seen on a different day. She stated that she had been in contact with her OB. Stated that she was post have a follow-up appointment. Stated that the follow appointment was canceled. Stated that her appointment was pushed back into August. Stated that she had severe pain. Stated that she had only prescribed Toradol and tramadol which she says does not help with her symptoms. She stated that her pain is moderate to severe to the point of debilitating and interfering with her daily life. She stated that she had contacted her [employer] and was told to come to the ER. Patient was seen earlier in the day. Patient reported that she was brushed off. I have reviewed the chart from previous. Reviewed the previous diagnostic workup. Reviewed the [facility] report. Review of Systems Gastrointestinal symptoms: Abdominal pain, severe, right lower quadrant. Health Status Allergies: Allergic Reactions (Selected) Unknown Compazine- No reactions were documented. Morphine- No reactions were documented.. Medications: (Selected) Documented Medications Documented ALPRAZolam 0.25 mg oral tablet: TAKE 1 TABLET BY MOUTH EVERY 8-12 HOURS NEEDED FOR ANXIETY FOR 2 DAYS CeleXA: 0 Refill(s) acetaminophen-oxycodon e 325 mg-5 mg oral tablet: 1 tab(s), Oral, q4hr, PRN: for pain, 0 Refill(s) gabapentin 300 mg oral capsule: TAKE 1 CAPSULE BY MOUTH THREE TIMES A DAY FOR 10 DAYS ketorolac 10 mg oral tablet: 10 mg = 1 tab(s), Oral, QID, not to exceed 40 mg/day and 5 days duration for all dose forms, PRN: as needed for pain, 12 tab(s), 0 Refill(s) ondansetron 4 mg oral tablet, disintegrating: DISSOLVE 1 TABLET ORALLY DAILY NEEDED FOR NAUSEA AND VOMITING traMADol 50 mg oral tablet: TAKE 1 TABLET BY MOUTH EVERY 6 HOURS NEEDED FOR PAIN FOR UP TO 3 DAYS. TAKE LOWEST DOSE POSSIBLE. Past Medical/ Family/ Social History Medical history: No active or resolved past medical history items have been selected or recorded., Reviewed as documented in chart. Surgical history: No active procedure history items have been selected or recorded., Reviewed as documented in chart. Family history: No family history items have been selected or recorded., Reviewed as documented in chart. Social history: Social & Psychosocial Habits Alcohol 07/10/2024 Alcohol Use: Current Frequency: 1-2 times per month 07/10/2024 Alcohol Use: Current Frequency: 1-2 times per month Substance Use 07/10/2024 Substance use: Never 07/10/2024 Substance use: Never Tobacco 07/10/2024 Smoking tobacco use: Never tobacco user 07/10/2024 Smoking tobacco use: Never tobacco user Electronic Cigarette/Vaping 07/10/2024 Electronic Cigarette Use: Never 07/10/2024 Electronic Cigarette Use: Never , Reviewed as documented in chart. Problem list: No qualifying data available , per nurse's notes. Physical Examination Vital Signs Vital Signs 07/10/2024 22:57 EST Apical Heart Rate 98 bpm Respiratory Rate 18 br/min SpO2 98 % 07/10/2024 22:18 EST Temperature Oral 36.8 DegC Peripheral Pulse Rate 108 bpm HI Respiratory Rate 20 br/min Systolic Blood Pressure 145 mmHg HI Diastolic Blood Pressure 98 mmHg HI SpO2 99 % Oxygen Therapy Room air 07/10/2024 14:49 EST Temperature Temporal Artery 37 DegC Heart Rate Monitored 94 bpm Respiratory Rate 18 br/min Systolic Blood Pressure 148 mmHg HI Diastolic Blood Pressure 90 mmHg HI SpO2 100 % (more content not included)... [facility] ED Note-Nursingon 07-11-2024 ED Note-Nursing This nurse entered room to discharge pt- Pt had self removed IV and left without discharge instructions. [facility] ED Patient Summaryon 025 ED Patient Summary [facility] - Emergency Department [address] [place], [place] [id number] PATIENT DISCHARGE INSTRUCTIONS Patient Information Name: ANTONIA NOYOLA Age: 39 Years Date of : 1985 Reason For Visit: Abdominal pain; ABD PAIN Arrival Time: 07/10/2024 21:55:42 Primary Care Physician: Provider, None Attending Physician: Eran Hill MD Comment: Visit Diagnosis: Diagnoses This Visit Abdominal pain ([id number]) Abdominal pain, chronic, right lower quadrant (R10.31) Other chronic pain (G89.29) The Pharmacy at [facility] is open Tuesday through Tuesday from [...] alcohol and/or drug addiction problems; contact the [facility] 03/01 Crisis Hotline -Text 5QCLU to 358393. If you received any narcotics, sedation, or [...] documents With: Address: When: Follow up with specialist Within 1 to 2 days Comments: Reviewed discharge care instruction. Continue with therapy as outlined by Dr. Hill. Contact your primary care provider or FITNESS TECHNICIAN for further evaluation and treatment of your condition. Return to ER for any worsening symptoms especially any symptom that concerns you. Medication Information: The exam and treatment you received today in the [facility] Emergency Department were for an urgent problem and are not intended as complete care. It is important for you to follow up with a doctor, nurse practitioner, or physician?s front end assistant for ongoing care. If your symptoms [...] so we can reach you if necessary. [facility] Emergency Department has provided you with a complete list of medications post discharge. Please inform your corporate communications associate/provider of your visit and for further instruction on these medications. Any specific questions regarding your chronic medications and dosages should be discussed with your primary care physician(s) and/or pharmacist. Additional medications on your home medication list not specifically addressed. Please contact the ordering physician if you have questions about these medications. acetaminophen-oxycodon e (acetaminophen-oxycodo ne 325 mg-5 mg oral tablet) 1 tab(s) Oral (given by mouth) every 4 hours. as needed for pain. ALPRAZolam (ALPRAZolam 0.25 mg oral tablet) TAKE 1 TABLET BY MOUTH EVERY 8-12 HOURS NEEDED FOR ANXIETY FOR 2 DAYS. citalopram (CeleXA) gabapentin (gabapentin 300 mg oral capsule) TAKE 1 CAPSULE BY MOUTH THREE TIMES A DAY FOR 10 DAYS. ketorolac (ketorolac 10 mg oral tablet) 1 tab(s) Oral (given by mouth) 4 times a day as needed as needed for pain. not to exceed 40 mg/day and 5 days duration for all dose forms. ondansetron (ondansetron 4 mg oral tablet, disintegrating) DISSOLVE 1 TABLET ORALLY DAILY NEEDED FOR NAUSEA AND VOMITING. traMADol (traMADol 50 mg oral tablet) TAKE 1 TABLET BY MOUTH EVERY 6 HOURS NEEDED FOR PAIN FOR UP TO 3 DAYS. TAKE LOWEST DOSE POSSIBLE. Visit Information Allergies: Substance Reaction Symptoms Type Comments Compazine Drug morphine Drug Vital Signs: Vitals and Measurements this Visit (last charted value for your 07/10/2024 visit) Vital Signs This Visit Temperature Oral: 36.8 DegC Apical Heart Rate: 98 bpm Peripheral Pulse Rate: 108 bpm Respiratory Rate: 18 br/min Systolic Blood Pressure: 145 mmHg Diastolic Blood Pressure: 98 mmHg SpO2: 98 % Oxygen Therapy: Room air Measurements This Visit Height/Length Measured: 164 cm Weight Measured: 84 kg Weig (more content not included)... Normal [facility] Progress Note - Nurseon 01-2 Progress Note - Nurse Physician to deneen patton to consult with patient now [Electronically Signed on: 07/11/2024 00:26 EST] Letty RNCelestina [Verified on: 07/11/2024 00:26 EST] Letty RNCelestina Normal [facility] .Auto Diff 1on 07-10-2024 Auto Haines % 6 % Normal -12 [facility] Comment on above: Performed By: #### 1 [id number], [id number], 5403697665, 8673380, 2877024, 00472673 ####[facility] (DEFAULT)[address] [place] [address] 56804 Baso Abs# 0.0 x10 Normal 0.0-0.2 [facility] Comment on above: Performed By: #### 1 [id number], 2322191206, 8020122156, 0923669, 4914367, 19263077 ####[facility] (DEFAULT)[address] [place] [address] 34423 Basophils/100 WBC (Bld) 0.4 % Normal 0.2-2.0 [facility] Comment on above: Performed By: #### 1 [id number], 5920758871, 7014366435, 9856617, 8031754, 19320056 ####[facility] (DEFAULT)[address] [place] [address] 54274 Eos Abs# 0.0 x10 Normal 0.0-0.4 [facility] Comment on above: Performed By: #### 1 [id number], 3541596094, 3466164260, 3765987, 3713394, 60813893 ####[facility] (DEFAULT)[address] [place] [address] 08588 Eosinophils/100 WBC (Bld) 0.3 % Low 0.9-4.0 [facility] Comment on above: Performed By: #### 1 [id number], 4005367938, 3045138942, 0472683, 1558899, 72854009 ####[facility] (DEFAULT)[address] [place] [address] 53359 Lymph Abs# 2.9 x10 Normal 1.3-2.9 [facility] Comment on above: Performed By: #### 1 [id number], 4112707674, 1327366055, 8684674, 3833119, 86516561 ####[facility] (DEFAULT)[address] [place] [address] Lymphocytes/100 WBC (Bld) 40 % Normal 14-48 [facility] Comment on above: Performed By: #### 1 [id number], 5370279993, 2416344331, 6312830, 9703095, 76337841 ####[facility] (DEFAULT)[address] [place] [address] 79100 Haines Abs# 0.5 x10 Normal 0.0-0.8 [facility] Comment on above: Performed By: #### 1 [id number], 8936781797, 0675546161, 1970632, 3837214, 26120961 ####[facility] (DEFAULT)[address] [place] [address] 99179 Neut Abs# 3.8 x10 Normal 1.5-9.2 [facility] Comment on above: Performed By: #### 1 [id number], 1248298825, 9516822214, 8922164, 0889814, 86178202 ####[facility] (DEFAULT)[address] [place] [address] 53870 Neutrophils/100 WBC (Bld) 52 % Normal 44-88 [facility] Comment on above: Performed By: #### 1 [id number], 5497239426, 7267802553, 6365542, 2644028, 51343014 ####[facility] (DEFAULT)[address] [place] [address] 18108 Auto Haines % 5 % Normal 1-12 [facility] Comment on above: Performed By: #### 1 [id number], 0882764, 09998995 #### [facility] (DEFAULT) [address] [place] [address] 09072 Baso Abs# 0.1 x10 Normal 0.0-0.2 [facility] Comment on above: Performed By: #### 1 [id number], 8603620, 41622526 #### [facility] (DEFAULT) [address] [place] [address] 77054 Basophils/100 WBC (Bld) 1.4 % Normal 0.2-2.0 [facility] Comment on above: Performed By: #### 1 [id number], 0033132, 10478948 #### [facility] (DEFAULT) [address] [place] [address] 70145 Eos Abs# 0.0 x10 Normal 0.0-0.4 [facility] Comment on above: Performed By: #### 1 [id number], 3982665, 95943687 #### [facility] (DEFAULT) [address] [place] [address] 33121 Eosinophils/100 WBC (Bld) 0.3 % Low 0.9-4.0 [facility] Comment on above: Performed By: #### 1 [id number], 5829824, 26463890 #### [facility] (DEFAULT) [address] [place] [address] 51332 Lymph Abs# 1.6 x10 Normal 1.3-2.9 [facility] Comment on above: Performed By: #### 1 011229803, 3060229, 75576566 #### [facility] (DEFAULT) [address] [place] [address] 06073 Lymphocytes/100 WBC (Bld) 30 % Normal 14-48 [facility] Comment on above: Performed By: #### 1 [id number], 1518291, 77513920 #### [facility] (DEFAULT) [address] [place] [address] 85863 Haines Abs# 0.2 x10 Normal 0.0-0.8 [facility] Comment on above: Performed By: #### 1 [id number], 4559026, 43197147 #### [facility] (DEFAULT) [address] [place] [address] 33223 Neut Abs# 3.3 x10 Normal 1.5-9.2 [facility] Comment on above: Performed By: #### 1 [id number], 7366054, 87924558 #### [facility] (DEFAULT) [address] [place] [address] 40311 Neutrophils/100 WBC (Bld) 63 % Normal 44-88 [facility] Comment on above: Performed By: #### 1 [id number], 1970939, 82360775 #### [facility] (DEFAULT) [address] [place] [address] CBC w/ Auto Diffon 5 Erythrocyte distribution width (RBC) [Ratio] 20.4 % High 11.5-15.0 [facility] Comment on above: Performed By: #### 1 [id number], 9549455554, 2833630949, 8493506, 4181191, 76755535 ####[facility] (DEFAULT)[address] [place] [address] 54566 Hematocrit (Bld) [Volume fraction] 35.6 % Normal 33.7-40.4 [facility] Comment on above: Performed By: #### 1 [id number], 8919139489, 8646302697, 4601317, 2216333, 90849073 ####[facility] (DEFAULT)[address] [place] [address] 02861 Hemoglobin (Bld) [Mass/Vol] 11.1 g/dL Low 11.3-15.9 [facility] Comment on above: Performed By: #### 1 [id number], 2024716525, 0590263054, 2981209, 5644477, 37090946 ####[facility] (DEFAULT)[address] [place] [address] 52061 Man Diff? Auto Invalid Interpretation Code [facility] Comment on above: Performed By: #### 1 [id number], 2684221078, 5266754387, 9332587, 5654939, 23801126 ####[facility] (DEFAULT)[address] [place] [address] 42394 MCH (RBC) [Entitic mass] 23 pg Low 24-34 [facility] Comment on above: Performed By: #### 1 [id number], 0037819563, 1182941333, 8828121, 8870271, 56820457 ####[facility] (DEFAULT)[address] [place] [address] 85620 MCHC (RBC) [Mass/Vol] 31 g/dL Normal 26-37 [facility] Comment on above: Performed By: #### 1 [id number], 8472121177, 8603165696, 7721557, 7311024, 91834657 ####[facility] (DEFAULT)[address] [place] [address] 56108 MCV (RBC) [Entitic vol] 73 fL Low 81-100 [facility] Comment on above: Performed By: #### 1 [id number], 2547560656, 8577276725, 1411972, 0946850, 29303943 ####[facility] (DEFAULT)[address] [place] [address] 79110 Platelet 499 x10 High 138-427 [facility] Comment on above: Performed By: #### 1 [id number], 5396935318, 9160051037, 8487502, 3961340, 96892633 ####[facility] (DEFAULT)[address] [place] [address] 33025 Platelet mean volume (Bld) [Entitic vol] 8.1 fL Normal 6.3-10.2 [facility] Comment on above: Performed By: #### 1 [id number], 9832969172, 4447608960, 9888537, 0541745, 96402954 ####[facility] (DEFAULT)[address] [place] [address] 50292 RBC 4.91 x10 Normal 3.70-5.30 [facility] Comment on above: Performed By: #### 1 534362925, 8481689933, 0147160556, 6223569, 9713606, 92865152 ####[facility] (DEFAULT)[address] [place] [address] 76656 WBC 7.2 x10 Normal 3.5-10.5 [facility] Comment on above: Performed By: #### 1 568223483, 9843019151, 5225523458, 9639687, 1964041, 75658425 ####[facility] (DEFAULT)[address] [place] [address] Erythrocyte distribution width (RBC) [Ratio] 19.9 % High 11.5-15.0 [facility] Comment on above: Performed By: #### 1 515662047, 9260290, 63926582 #### [facility] (DEFAULT) [address] [place] [address] Hematocrit (Bld) [Volume fraction] 34.0 % Normal 33.7-40.4 [facility] Comment on above: Performed By: #### 1 833646089, 9200516, 48983073 #### [facility] (DEFAULT) [address] [place] [address] Hemoglobin (Bld) [Mass/Vol] 10.7 g/dL Low 11.3-15.9 [facility] Comment on above: Performed By: #### 1 374841177, 2605905, 36464455 #### [facility] (DEFAULT) [address] [place] [address] Man Diff? Auto Invalid Interpretation Code [facility] Comment on above: Performed By: #### 1 [id number], 0077650, 13274731 #### [facility] (DEFAULT) [address] [place] [address] MCH (RBC) [Entitic mass] 23 pg Low 24-34 [facility] Comment on above: Performed By: #### 1 [id number], 9665049, 32292031 #### [facility] (DEFAULT) [address] [place] [address] 95960 MCHC (RBC) [Mass/Vol] 32 g/dL Normal 26-37 [facility] Comment on above: Performed By: #### 1 [id number], 1504498, 78975182 #### [facility] (DEFAULT) [address] [place] [address] MCV (RBC) [Entitic vol] 72 fL Low 81-100 [facility] Comment on above: Performed By: #### 1 [id number], 2152198, 33347841 #### [facility] (DEFAULT) [address] [place] [address] Platelet 469 x10 High 138-427 [facility] Comment on above: Performed By: #### 1 [id number], 1893993, 89163544 #### [facility] (DEFAULT) [address] [place] [address] Platelet mean volume (Bld) [Entitic vol] 7.7 fL Normal 6.3-10.2 [facility] Comment on above: Performed By: #### 1 [id number], 6798599, 14712556 #### [facility] (DEFAULT) [address] [place] [address] RBC 4.72 x10 Normal 3.70-5.30 [facility] Comment on above: Performed By: #### 1 [id number], 1116340, 60662833 #### [facility] (DEFAULT) [address] [place] [address] WBC 5.2 x10 Normal 3.5-10.5 [facility] Comment on above: Performed By: #### 1 [id number], 3058508, 86937623 #### [facility] (DEFAULT) [address] [place] [address] CMP Standardon 07-10-2024 eGFR Non AA >60 Invalid Interpretation Code [facility] Comment on above: Performed By: #### 1 [id number], 9584925591, 2580631044, 1267961, 6925453, 60389517 ####[facility] (DEFAULT)[address] [place] [address] eGFR AA >60 Invalid Interpretation Code [facility] Comment on above: Performed By: #### 1 [id number], 5146792512, 1420772100, 4998028, 3003658, 78228155 ####[facility] (DEFAULT)[address] [place] [address] Albumin [Mass/Vol] 4.4 g/dL Normal 3.5-5.0 [facility] Comment on above: Performed By: #### 1 [id number], 8696272044, 7974680429, 6996442, 6976248, 03741145 ####[facility] (DEFAULT)[address] [place] [address] 91006 Albumin/Globulin [Mass ratio] 1.0 {ratio} Low 1.4-2.6 [facility] Comment on above: Performed By: #### 1 [id number], 4984048339, 4261386538, 5768137, 6064214, 73900665 ####[facility] (DEFAULT)[address] [place] [address] Alk Phos 64 IU/L Normal 32-91 [facility] Comment on above: Performed By: #### 1 518071059, 3234348310, 8193091195, 1919335, 5283550, 07484472 ####[facility] (DEFAULT)[address] [place] [address] ALT [Catalytic activity/Vol] 17.0 U/L Normal 14.0-54.0 [facility] Comment on above: Performed By: #### 1 981946119, 6477256119, 3842443469, 9796459, 3821758, 74674152 ####[facility] (DEFAULT)[address] [place] [address] 43788 Anion gap [Moles/Vol] 16.1 mmol/L Normal 5.0-19.0 [facility] Comment on above: Performed By: #### 1 [id number], 4963778922, 7960371776, 4176167, 2783177, 72035697 ####[facility] (DEFAULT)[address] [place] [address] 14501 AST [Catalytic activity/Vol] 22 U/L Normal 15-41 [facility] Comment on above: Performed By: #### 1 [id number], 1686065125, 6317087584, 2557354, 2504655, 51868822 ####[facility] (DEFAULT)[address] [place] [address] Bili Total 0.7 mg/dL Normal 0.3-1.2 [facility] Comment on above: Performed By: #### 1 [id number], 0558337758, 8804687133, 0877554, 9160835, 61295808 ####[facility] (DEFAULT)[address] [place] [address] 64916 Calcium [Mass/Vol] 9.3 mg/dL Normal 8.9-10.3 [facility] Comment on above: Performed By: #### 1 [id number], 0610715687, 5468570770, 2672222, 8172418, 52853419 ####[facility] (DEFAULT)[address] [place] [address] 71695 Chloride [Moles/Vol] 105 mmol/L Normal 101-111 [facility] Comment on above: Performed By: #### 1 [id number], 6545594190, 0123337728, 4442877, 5171551, 32035818 ####[facility] (DEFAULT)[address] [place] [address] 09254 CO2 [Moles/Vol] 21 mmol/L Normal 21-32 [facility] Comment on above: Performed By: #### 1 [id number], 4238388091, 9931328547, 8952297, 2238253, 96033538 ####[facility] (DEFAULT)[address] [place] [address] 03066 Creatinine [Mass/Vol] 0.90 mg/dL Normal 0.60-1.30 [facility] Comment on above: Performed By: #### 1 [id number], 4146807926, 3437008601, 4251491, 9046682, 26869708 ####[facility] (DEFAULT)[address] [place] [address] 81363 Globulin (S) [Mass/Vol] 4.3 g/dL Normal 1.5-4.3 [facility] Comment on above: Performed By: #### 1 [id number], 3746102783, 9224149551, 3482975, 9024516, 56940893 ####[facility] (DEFAULT)[address] [place] [address] 65569 Glucose [Mass/Vol] 100.0 mg/dL Normal 74.0-118.0 [facility] Comment on above: Performed By: #### 1 [id number], 5632604175, 9412302137, 7404602, 4487663, 79172409 ####[facility] (DEFAULT)[address] [place] [address] 35244 Osmolality 276 mOsm/L Invalid Interpretation Code [facility] Comment on above: Performed By: #### 1 [id number], 5606744868, 7834287592, 4043601, 1378222, 97698410 ####[facility] (DEFAULT)[address] [place] [address] 11135 Potassium [Moles/Vol] 3.1 mmol/L Low 3.6-5.1 [facility] Comment on above: Performed By: #### 1 [id number], 5094221364, 6129008932, 7303279, 5065100, 11168774 ####[facility] (DEFAULT)[address] [place] [address] 33465 Protein [Mass/Vol] 8.7 g/dL High 6.5-8.1 [facility] Comment on above: Performed By: #### 1 [id number], 9015498703, 1067036564, 5149708, 0287797, 48539030 ####[facility] (DEFAULT)[address] [place] [address] 09063 Sodium [Moles/Vol] 139.0 mmol/L Normal 136.0-144.0 [facility] Comment on above: Performed By: #### 1 [id number], 2640548355, 6579275837, 4663762, 4652849, 89258501 ####[facility] (DEFAULT)[address] [place] [address] 11928 Urea nitrogen [Mass/Vol] 8 mg/dL Normal 8-26 [facility] Comment on above: Performed By: #### 1 545382423, 1859769874, 8016816138, 3328870, 7951281, 63582655 ####[facility] (DEFAULT)[address] [place] [address] 52902 Urea nitrogen/Creatinine [Mass ratio] 8.8 mg/mg Normal 4.6-16.2 [facility] Comment on above: Performed By: #### 1 881335171, 1342053702, 6623800856, 7560642, 4938819, 29513444 ####[facility] (DEFAULT)[address] [place] [address] 13210 eGFR Non AA >60 Invalid Interpretation Code [facility] Comment on above: Performed By: #### 1 885393338, 7385063, 73268808 ####[facility] (DEFAULT)[address] [place] [address] 46699 eGFR AA >60 Invalid Interpretation Code [facility] Comment on above: Performed By: #### 1 [id number], 0885893, 49452432 ####[facility] (DEFAULT)[address] [place] [address] 36092 Albumin [Mass/Vol] 4.2 g/dL Normal 3.5-5.0 [facility] Comment on above: Performed By: #### 1 173196689, 3901915, 52336132 ####[facility] (DEFAULT)[address] [place] [address] 97310 Albumin/Globulin [Mass ratio] 1.0 {ratio} Low 1.4-2.6 [facility] Comment on above: Performed By: #### 1 189583737, 4160972, 14368281 ####[facility] (DEFAULT)[address] [place] [address] 07184 Alk Phos 62 IU/L Normal 32-91 [facility] Comment on above: Performed By: #### 1 301599468, 4164531, 37788123 ####[facility] (DEFAULT)[address] [place] [address] 99796 ALT [Catalytic activity/Vol] 18.0 U/L Normal 14.0-54.0 [facility] Comment on above: Performed By: #### 1 647093851, 8406275, 32134711 ####[facility] (DEFAULT)[address] [place] [address] 95112 Anion gap [Moles/Vol] 13.5 mmol/L Normal 5.0-19.0 [facility] Comment on above: Performed By: #### 1 [id number], 7351388, 64118292 ####[facility] (DEFAULT)[address] [place] [address] 14708 AST [Catalytic activity/Vol] 20 U/L Normal 15-41 [facility] Comment on above: Performed By: #### 1 052893585, 1818618, 76911167 ####[facility] (DEFAULT)[address] [place] [address] 42981 Bili Total 0.7 mg/dL Normal 0.3-1.2 [facility] Comment on above: Performed By: #### 1 903849427, 8855252, 18761070 ####[facility] (DEFAULT)[address] [place] [address] 93354 Calcium [Mass/Vol] 9.2 mg/dL Normal 8.9-10.3 [facility] Comment on above: Performed By: #### 1 299751851, 0132811, 81052130 ####[facility] (DEFAULT)[address] [place] [address] 03953 Chloride [Moles/Vol] 107 mmol/L Normal 101-111 [facility] Comment on above: Performed By: #### 1 006509064, 6840952, 83938747 ####[facility] (DEFAULT)[address] [place] [address] 13019 CO2 [Moles/Vol] 21 mmol/L Normal 21-32 [facility] Comment on above: Performed By: #### 1 831980424, 8633724, 33924342 ####[facility] (DEFAULT)[address] [place] [address] 37868 Creatinine [Mass/Vol] 0.74 mg/dL Normal 0.60-1.30 [facility] Comment on above: Performed By: #### 1 [id number], 2614692, 03632744 ####[facility] (DEFAULT)[address] [place] [address] 85360 Globulin (S) [Mass/Vol] 4.0 g/dL Normal 1.5-4.3 [facility] Comment on above: Performed By: #### 1 [id number], 9478736, 48957816 ####[facility] (DEFAULT)[address] [place] [address] 11761 Glucose [Mass/Vol] 109.0 mg/dL Normal 74.0-118.0 [facility] Comment on above: Performed By: #### 1 [id number], 6731074, 76751390 ####[facility] (DEFAULT)[address] [place] [address] 06245 Osmolality 274 mOsm/L Invalid Interpretation Code [facility] Comment on above: Performed By: #### 1 [id number], [id number] ####[facility] (DEFAULT)[address] [place] [address] 05690 Potassium [Moles/Vol] 3.5 mmol/L Low 3.6-5.1 [facility] Comment on above: Performed By: #### 1 [id number], [id number] ####[facility] (DEFAULT)[address] [place] [address] 46735 Protein [Mass/Vol] 8.2 g/dL High 6.5-8.1 [facility] Comment on above: Performed By: #### 1 [id number], [id number] ####[facility] (DEFAULT)[address] [place] [address] 10640 Sodium [Moles/Vol] 138.0 mmol/L Normal 136.0-144.0 [facility] Comment on above: Performed By: #### 1 [id number], [id number], [id number] ####[facility] (DEFAULT)[address] [place] [address] 22928 Urea nitrogen [Mass/Vol] 8 mg/dL Normal 8-26 [facility] Comment on above: Performed By: #### 1 [id number], [id number], [id number] ####[facility] (DEFAULT)[address] [place] [address] 96741 Urea nitrogen/Creatinine [Mass ratio] 10.8 mg/mg Normal 4.6-16.2 [facility] Comment on above: Performed By: #### 1 [id number], [id number], [id number] ####[facility] (DEFAULT)[address] [place] [address] 93932 Extra Blueon 07-10-2024 Tube Collected Yes Invalid Interpretation Code [facility] Comment on above: Performed By: #### 1 [id number], [id number], [id number], [id number], [id number], [id number] ####[facility] (DEFAULT)[address] [place] [address] 83389 Extra Redon 07-10-2024 Tube Collected Yes Invalid Interpretation Code [facility] Comment on above: Performed By: #### 1 [id number], [id number], [id number], [id number], [id number] ####[facility] (DEFAULT)[address] [place] [address] 06068 Lipaseon 07-10-2024 Lipase Level 50.0 IU/L Normal 22.0-51.0 [facility] Comment on above: Performed By: #### 1 [id number], [id number], [id number], 1321735, 2033795, [id number] ####[facility] (DEFAULT)[address] [place] [address] 48203 UA Qzbll0nj 07-10-2024 UA Bacteria None Normal [facility] Comment on above: Order Comment: Urina lysis Microscopic order added on by [employer] Rules system. Performed By: #### 1 [id number], [id number] #### [facility] (DEFAULT) [address] [place] [address] 59504 UA RBC 0-2 Normal [facility] Comment on above: Order Comment: Urina lysis Microscopic order added on by [employer] Rules system. Performed By: #### 1 [id number], [id number] #### [facility] (DEFAULT) [address] [place] [address] 64740 UA Squam Epi Few Normal [facility] Comment on above: Order Comment: Urina lysis Microscopic order added on by [employer] Rules system. Performed By: #### 1 [id number], [id number] #### [facility] (DEFAULT) [address] [place] [address] 43791 UA WBC 0-2 Normal [facility] Comment on above: Order Comment: Urina lysis Microscopic order added on by [employer] Rules system. Performed By: #### 1 [id number], [id number] #### [facility] (DEFAULT) [address] [place] [address] UA w Culture if Ind Standard on 07-10-2024 Breakpoint UA [facility] Comment on above: Performed By: #### 1 [id number], [id number] #### [facility] (DEFAULT) [address] [place], [place] [id number] Color (U) Yellow [facility] Comment on above: Performed By: #### 1 [id number], [id number] #### [facility] (DEFAULT) [address] [place] [address] 84377 Culture? Not Indicated Invalid Interpretation Code [facility] Comment on above: Result Comment: Resu lt created by rule GL_MAGR_ADD_UA_CULT Result created by rule GL_MAGR_ADD_UA_CULT Result created by rule GL_MAGR_ADD_UA_CULT1 Performed By: #### 1 [id number], [id number] #### [facility] (DEFAULT) [address] [place] [address] 84217 Glucose (U) [Mass/Vol] Negative [facility] Comment on above: Performed By: #### 1 [id number], [id number] #### [facility] (DEFAULT) [address] [place] [address] 89717 Ketones Ql (U) Negative [facility] Comment on above: Performed By: #### 1 [id number], [id number] #### [facility] (DEFAULT) [address] [place] [address] 44895 Micro? Indicated Invalid Interpretation Code [facility] Comment on above: Result Comment: Resu lt created by rule GL_MAGR_ADD_UA_MICRO Performed By: #### 1 [id number], [id number] #### [facility] (DEFAULT) [address] [place] [address] 54885 UA Bilirubin Negative [facility] Comment on above: Performed By: #### 1 [id number], [id number] #### [facility] (DEFAULT) [address] [place] [address] 70933 UA Blood TRACE Abnormal NEGATIVE [facility] Comment on above: Performed By: #### 1 [id number], [id number] #### [facility] (DEFAULT) [address] [place] [address] 30552 UA Clarity CLEAR Normal CLEAR [facility] Comment on above: Performed By: #### 1 [id number], [id number] #### [facility] (DEFAULT) [address] [place] [address] 40523 UA Leuk Est Negative Normal NEGATIVE [facility] Comment on above: Performed By: #### 1 [id number], [id number] #### [facility] (DEFAULT) [address] [place] [address] 66950 UA Nitrite Negative Normal NEGATIVE [facility] Comment on above: Performed By: #### 1 [id number], [id number] #### [facility] (DEFAULT) [address] [place] [address] 71367 UA pH 6.0 Normal 5-8 [facility] Comment on above: Performed By: #### 1 [id number], [id number] #### [facility] (DEFAULT) [address] [place] [address] 85556 UA Protein Negative Normal NEGATIVE [facility] Comment on above: Performed By: #### 1 [id number], [id number] #### [facility] (DEFAULT) [address] [place] [address] 90819 UA Spec Grav 1.025 Normal 1.001-1.035 [facility] Comment on above: Performed By: #### 1 [id number], [id number] #### [facility] (DEFAULT) [address] [place] [address] 68533 UA Urobilinogen 0.2 mg/dL Normal 0.2-1.0 [facility] Comment on above: Performed By: #### 1 [id number], [id number] #### [facility] (DEFAULT) [address] [place] [address] 89582 Urine Source Clean Catch Normal [facility] Comment on above: Performed By: #### 1 [id number], [id number] #### [facility] (DEFAULT) [address] [place] [address] 66144 Breakpoint UA Normal [facility] Comment on above: Performed By: #### 1 [id number] ####[facility] (DEFAULT)[address] [place] [address] 28554 Color (U) Straw [facility] Comment on above: Performed By: #### 1 [id number] ####[facility] (DEFAULT)[address] [place] [address] 58017 Culture? Not Indicated Invalid Interpretation Code [facility] Comment on above: Result Comment: Resu lt created by rule GL_MAGR_ADD_UA_CULT1 Performed By: #### 1 [id number] ####[facility] (DEFAULT)[address] [place] [address] Glucose (U) [Mass/Vol] 100 mg/dL Normal [facility] Comment on above: Performed By: #### 1 [id number] ####[facility] (DEFAULT)[address] [place] [address] 31366 Ketones Ql (U) Negative [facility] Comment on above: Performed By: #### 1 [id number] ####[facility] (DEFAULT)[address] [place] [address] 32486 Micro? Not Indicated Invalid Interpretation Code [facility] Comment on above: Result Comment: Resu lt created by rule GL_MAGR_ADD_UA_MICRO Performed By: #### 1 [id number] ####[facility] (DEFAULT)[address] [place] [address] 87121 UA Bilirubin Negative Normal [facility] Comment on above: Performed By: #### 1 [id number] ####[facility] (DEFAULT)[address] [place] [address] 10720 UA Blood Negative Normal NEGATIVE [facility] Comment on above: Performed By: #### 1 [id number] ####[facility] (DEFAULT)[address] [place] [address] 29865 UA Clarity CLEAR Normal CLEAR [facility] Comment on above: Performed By: #### 1 [id number] ####[facility] (DEFAULT)[address] [place] [address] 82553 UA Leuk Est Negative Normal NEGATIVE [facility] Comment on above: Performed By: #### 1 [id number] ####[facility] (DEFAULT)[address] [place] [address] 52249 UA Nitrite Negative Normal NEGATIVE [facility] Comment on above: Performed By: #### 1 [id number] ####[facility] (DEFAULT)[address] [place] [address] 96405 UA pH 6.0 Normal 5-8 [facility] Comment on above: Performed By: #### 1 [id number] ####[facility] (DEFAULT)[address] [place] [address] UA Protein Negative Normal NEGATIVE [facility] Comment on above: Performed By: #### 1 [id number] ####[facility] (DEFAULT)[address] [place] [address] 03204 UA Spec Grav <=1.005 Normal 1.001-1.035 [facility] Comment on above: Performed By: #### 1 [id number] ####[facility] (DEFAULT)[address] [place] [address] 42843 UA Urobilinogen 0.2 mg/dL Normal 0.2-1.0 [facility] Comment on above: Performed By: #### 1 [id number] ####[facility] (DEFAULT)[address] [place] [address] 05688 Urine Source Clean Catch [facility] Comment on above: Performed By: #### 1 [id number] ####[facility] (DEFAULT)[address] [place] [address] 26463 CBC AND AUTO DIFFon 07-07-20 25 ABSOLUTE BASOPHIL 0.1 X10E9/L Normal 0.0-0.2 [facility] Comment on above: Performed By: #### C BCA, CMP, 3040-3, 1987- ####[facility] ([id number])[address] [place] [address] 27226 ABSOLUTE NEUTROPHIL 2.1 X10E9/L Normal 1.5-6.6 [facility] Comment on above: Performed By: #### C HEATH [facility], 3039-08, 1987-10 ####[facility] ([id number])[address] [place] [address] 35501 Basophils/100 WBC (Bld) 1.3 % Normal [facility] Comment on above: Performed By: #### Leila JOE [facility], 3039-08, 1987-10 ####[facility] ([id number])[address] [place] [address] 51200 Eosinophils (Bld) [#/Vol] 0.1 10*3/uL Normal 0.0-0.4 [facility] Comment on above: Performed By: #### Leila JOE [facility], 3039-08, 1987-10 ####[facility] ([id number])[address] [place] [address] 02533 Eosinophils/100 WBC (Bld) 1.7 % Normal [facility] Comment on above: Performed By: #### Leila JOE [facility], 1987-10 ####[facility] ([id number])[address] [place] [address] 67672 Erythrocyte distribution width (RBC) [Ratio] 19.6 % High 11.5-15.0 [facility] Comment on above: Performed By: #### Leila JOE [facility], 1987-10 ####[facility] ([id number])[address] [place] [address] 06286 Hematocrit (Bld) [Volume fraction] 33.8 % Low 35-47 [facility] Comment on above: Performed By: #### Leila JOE [facility], 1987-10 ####[facility] ([id number])[address] [place] [address] 37489 Hemoglobin (Bld) [Mass/Vol] 10.7 g/dL Low 11.7-15.5 [facility] Comment on above: Performed By: #### Leila JOE [facility], 3039-08, 1987-10 ####[facility] ([id number])[address] [place] [address] 81224 Lymphocytes (Bld) [#/Vol] 2.3 10*3/uL Normal 1.0-3.5 [facility] Comment on above: Performed By: #### Leila JOE [facility], 3039-08, 1987-10 ####[facility] ([id number])[address] [place] [address] 41155 Lymphocytes/100 WBC (Bld) 46.5 % Normal [facility] Comment on above: Performed By: #### Leila JOE [facility], 3039-08, 1987-10 ####[facility] ([id number])[address] [place] [address] 60786 MCH (RBC) [Entitic mass] 22.8 pg Low 27-34 [facility] Comment on above: Performed By: #### Leila JOE [facility], 3039-08, 1987-10 ####[facility] ([id number])[address] [place] [address] 77359 MCHC (RBC) [Mass/Vol] 31.8 g/dL Low 32-36 [facility] Comment on above: Performed By: #### Leila JOE [facility], 3039-08, 1987-10 ####[facility] ([id number])[address] [place] [address] 55573 MCV (RBC) [Entitic vol] 72 fL Low 80-100 P [facility] Comment on above: Performed By: #### Leila JOE [facility], 1987-10 ####[facility] ([id number])[address] [place] [address] 07284 Monocytes (Bld) [#/Vol] 0.4 10*3/uL Normal 0-0.9 [facility] Comment on above: Performed By: #### Leila JOE CMP, 1987-10 ####[facility] ([id number])[address] [place] [address] 40692 Monocytes/100 WBC (Bld) 8.2 % Normal [facility] Comment on above: Performed By: #### Leila JOE [facility], 1987-10 ####[facility] ([id number])[address] [place] [address] 67214 Neutrophils/100 WBC (Bld) 42.3 % Normal [facility] Comment on above: Performed By: #### Leila JOE [facility], 1987-10 ####[facility] ([id number])[address] [place] [address] 63429 Platelet mean volume (Bld) [Entitic vol] 7.4 fL Normal 7-12 [facility] Comment on above: Performed By: #### Leila JOE [facility], 1987-10 ####[facility] ([id number])[address] [place] [address] 13747 Platelets (Bld) [#/Vol] 480 10*3/uL High 150-450 [facility] Comment on above: Performed By: #### Leila JOE CMP, 1987-10 ####[facility] ([id number])[address] [place] [address] 43352 RBC COUNT 4.70 X10E12/L Normal 3.80-5.20 [facility] Comment on above: Performed By: #### Leila JOE CMP, 1987-10 ####[facility] ([id number])[address] [place] [address] 70517 WBC (Bld) [#/Vol] 4.9 10*3/uL Normal 4.0-11.0 [facility] Comment on above: Performed By: #### C STEVE JOE, 3039-08, 1987-10 ####[facility] ([id number])[address] [place] [address] 13340 COMPREHENSIVE METABOLIC PANE Van 07-07-2024 Albumin [Mass/Vol] 4.1 g/dL Normal 3.2-5.3 [facility] Comment on above: Performed By: #### C STEVE JOE, 3039-08, 1987-10 ####[facility] ([id number])[address] [place] [address] 74084 ALP [Catalytic activity/Vol] 67 U/L Normal 39-130 [facility] Comment on above: Performed By: #### C STEVE JOE, 3039-08, 1987-10 ####[facility] ([id number])[address] [place] [address] 14385 ALT [Catalytic activity/Vol] 15 U/L Normal 0-31 [facility] Comment on above: Performed By: #### C STEVE JOE, 3039-08, 1987-10 ####[facility] ([id number])[address] [place] [address] 20272 Anion gap [Moles/Vol] 7 mmol/L Normal 5-15 [facility] Comment on above: Performed By: #### C STEVE JOE, 1987-10 ####[facility] ([id number])[address] [place] [address] 26320 AST [Catalytic activity/Vol] 19 U/L Normal 0-41 [facility] Comment on above: Performed By: #### C STEVE JOE, 1987-10 ####[facility] ([id number])[address] [place] [address] 42272 Bilirubin [Mass/Vol] 0.6 mg/dL Normal 0.3-1.2 [facility] Comment on above: Performed By: #### C STEVE JOE, 3039-08, 1987-10 ####[facility] ([id number])[address] [place] [address] 94132 Calcium [Mass/Vol] 9.1 mg/dL Normal 8.5-10.5 [facility] Comment on above: Performed By: #### C STEVE JOE, 3039-08, 1987-10 ####[facility] ([id number])[address] [place] [address] 53969 Chloride [Moles/Vol] 107 mmol/L Normal 98-109 [facility] Comment on above: Performed By: #### C STEVE JOE, 3039-08, 1987-10 ####[facility] ([id number])[address] [place] [address] 10774 CO2 [Moles/Vol] 24 mmol/L Normal 22-32 [facility] Comment on above: Performed By: #### C STEVE JOE, 3039-08, 1987-10 ####[facility] ([id number])[address] [place] [address] 03546 Creatinine [Mass/Vol] 0.88 mg/dL Normal 0.40-1.00 [facility] Comment on above: Result Comment: METH OD TRACEABLE TO IDMS STANDARD Performed By: #### C STEVE JOE, 3039-08, 1987-10 ####[facility] ([id number])[address] [place] [address] 87373 GFR/1.73 sq M.predicted among non-blacks MDRD (S/P/Bld) [Vol rate/Area] 87 mL/min/{1.73_m2} Normal >59 [facility] Comment on above: Result Comment: Reported eGFR is based on the CKD-EPI 2020 equation that does not use a race coefficient. Performed By: #### C STEVE JOE, 3039-08, 1987-10 ####[facility] ([id number])[address] [place] [address], [place] [address] Glucose [Mass/Vol] 97 mg/dL Normal 65-99 [facility] Comment on above: Performed By: #### C HEATH CMP, 3039-08, 1987-10 ####[facility] ([id number])[address] [place] [address] [place] [address] Potassium [Moles/Vol] 3.7 mmol/L Normal 3.5-5.0 [facility] Comment on above: Performed By: #### C HEATH CMP, 3039-08, 1987-10 ####[facility] ([id number])[address] [place] [address] 52959 Protein [Mass/Vol] 7.6 g/dL Normal 6.0-8.0 [facility] Comment on above: Performed By: #### C HEATH CMP, 1987-10 ####[facility] ([id number])[address] [place] [address] [place] [address] Sodium [Moles/Vol] 138 mmol/L Normal 134-146 [facility] Comment on above: Performed By: #### Leila JOE CMP, 3039-08, 1987-10 ####[facility] ([id number])[address] [place] [address] 64599 Urea nitrogen [Mass/Vol] 7 mg/dL Normal 5-23 [facility] Comment on above: Performed By: #### C HEATH, CMP, 1987-10 ####[facility] ([id number])[address] [place] [address] 83710 CRP [Mass/Vol]on 07-07-2024 C REACTIVE PROTEIN 0.5 mg/dL Normal 0.000-0.744 [facility] Comment on above: Performed By: #### Leila JOE CMP, 1987-10 ####[facility] ([id number])[address] [place] [address] ABDOMEN AND PELVIS WO CON Ton 07-07-2024 CT ABDOMEN AND PELVIS WO CONT CT ABDOMEN AND PELVIS WO CONT CLINICAL INFORMATION: Abdominal pain, acute, nonlocalized. TECHNIQUE: CT Abdomen and Pelvis without intravenous contrast. All CT scans at this facility use dose modulation, iterative reconstruction, and/or weight based dosing when appropriate to reduce radiation dose to as low as reasonably achievable. COMPARISON: 06/05/2024 FINDINGS: No pleural or pericardial effusions lung bases. No lower lung consolidation. The gallbladder is absent. Noncontrast assessment of the liver, adrenal glands, pancreas and spleen appeared unremarkable. Kidneys appear to be unremarkable. Small bowel is nondilated. Right lower quadrant appendix is unremarkable. No free pelvic fluid. No enlarged pelvic lymph nodes. Uterus is absent. Urinary bladder is grossly unremarkable. No vertebral body height loss. There is degenerative change of the thoracolumbar spine, mild. IMPRESSION: * No definitive acute abdominal or pelvic process identified. Finalized by Gustavo Randle MD on 07/07/2024 5:58 PM Normal [facility] HCG ( test) Ql (U)o n 07-07-2024 Beta HCG ( test) Ql (U) Negative Normal NEG [facility] Comment on above: Performed By: #### 2 106-3 ####[facility] ([id number])[address] [place] [address] 19856 LIPASEon 07-07-2024 Lipase [Catalytic activity/Vol] 35 U/L Normal 17-40 [facility] Comment on above: Performed By: #### C BCA, CMP, 3040-3, 1987- ####[facility] ([id number])[address] [place] [address] [id number] Lactate (P arely) [Moles/Vol]o n 07-07-2024 LACTATE W/REFLEX 1.5 mmol/L Normal 0.4-2.0 [facility] Comment on above: Result Comment: Result did not trigger repeat Lactate, re-order if needed. Performed By: #### 3 2133-1 ####[facility] ([id number])[address] [place] [address], [place] [address] URN MACROSCOPIC NURon 2024 BILIRUBIN AUDREY Negative Normal NEG [facility] Comment on above: Performed By: #### N UM ####[facility] ([id number])[address] [place] [address], [place] [address] BLOOD/HGB AUDREY Small Abnormal NEG [facility] Comment on above: Performed By: #### N UM ####[facility] ([id number])[address] [place] [address], [place] [address] GLUCOSE AUDREY Negative Normal NEG [facility] Comment on above: Performed By: #### N UM ####[facility] ([id number])[address] [place] [address], [place] [address] KETONES AUDREY Negative Normal NEG [facility] Comment on above: Performed By: #### N UM ####[facility] ([id number])[address] [place] [address], [place] [address] LEUKOCYTE ESTERASE AUDREY Trace Abnormal NEG [facility] Comment on above: Performed By: #### N UM ####[facility] ([id number])[address] [place] [address], [place] [address] NITRITE AUDREY Negative Normal NEG [facility] Comment on above: Performed By: #### N UM ####[facility] ([id number])[address] [place] [address], [place] [address] PH AUDREY 7.0 Normal 5.0-8.5 [facility] Comment on above: Performed By: #### N UM ####[facility] ([id number])[address] [place] [address], [place] [address] PROTEIN AUDREY Negative Normal NEG [facility] Comment on above: Performed By: #### N UM ####[facility] ([id number])[address] [place] [address] 21099 SPECIFIC GRAVITY AUDREY 1.010 Normal 1.003-1.035 [facility] Comment on above: Performed By: #### N UM ####[facility] ([id number])[address] [place] [address] 27515 UROBILINOGEN AUDREY 0.2 eu/dL Normal <1.1 [facility] [facility] Comment on above: Performed By: #### N UM ####[facility] ([id number])[address] [place] [id number] ED Clinical Summaryon 2024 ED Clinical Summary ED Clinical Summary [address] [address] ED Clinical Summary Person Information Name: ANTONIA NOYOLA/[facility] Age: 39 Years : 1985 Sex: Female Language: Jordanian PCP: NONE, XXXX Marital Status: Visit Id: [...] 01:38:52 06/28/2024 01:38:52 06/28/2024 01:38:52 ADDRESS: [address] [place] [id number] [facility] DOC NOTES: MEDICAL INFORMATION: Prescriptions Given: Medications to Continue with No Changes Other Medications acetaminophen-oxycodon e (Percocet 5 mg-325 mg oral tablet) 1 Tablets By Mouth every 8 hours for 3 Days. Refills: 0. diflunisal (diflunisal 500 mg Tab) 1 Tablets By Mouth every 12 hours. Refills: 0. PATIENT EDUCATION INFORMATION: Instructions: Abdominal Pain, Adult, Lpyu-ce-Buwy Follow up: With: Address: When: [facility] [place] [address] Business (1) In 3 days 07/01/2024 Comments: Please follow-up with your primary care doctor and FITNESS TECHNICIAN for further evaluation and management. Return to the ED for any new or worsening symptoms. With: Address: When: XXXX NONE , [place] In 3 days DIAGNOSIS: Abdominal pain; Nausea Normal [facility] ED Note-Physicianon 06-28-19 ED Note-Physician ED Note-Physician Basic Information Time Seen: Jordyn Willtet DO 06/27/2024 23:52 Chief Complaint (R) sided [...] rebound syndrome and follows with OB in [place]. Review of Systems A 10 point review [...] and Complexity of Problems Differential Diagnosis: [] [facility] Data External documents reviewed: [] My [...] when reviewing her OARRS. I did review Clnisyn patient was seen at both [place] and [place] today. Discussed with the patient she states that [...] prescription medications Follow-up With When Contact Information [facility] In 3 days 07/01/2024 [place] [phone] Business (1) Additional Instructions: Please follow-up with your primary care doctor and FITNESS TECHNICIAN for further evaluation and management. Return to the ED for any new or worsening symptoms. XXXX NONE In 3 days [place] Additional Instructions: Patient Education Abdominal Pain, Adult, Nnwd-tn-Snwz Problem List/Past (more content not included)... Normal [facility] Comment on above: Result Comment: Elec tronically Signed By: Jordyn Willett DO\.br\Date and Time Signed: 06/28/24 03:41 EST ED Patient Summaryon 025 ED Patient Summary ED Patient Summary [address] [address] Patient Discharge Instructions Person Information Name: ANTONIA NOYOLA Age: 39 Years Arrival Date: 06/27/2024 21:46:23 Discharge Diagnosis: Abdominal pain; Nausea Primary Care Physician: NONE, XXXX Provider Information Primary Provider: Jordyn Willett DO Advanced Die Press Operator:Shazia The exam and treatment you received in the Emergency Department were for an urgent problem and are not intended as complete care. It is important that you follow up with a doctor, nurse practitioner, or physician???s front end assistant for ongoing care. If your symptoms become worse or you do not improve as expected and you are unable to reach your usual health care provider, you should return to the Emergency Department. We are available 24 hours a day. ANTONIA NOYOLA has been given the following list of patient education materials, prescriptions and follow-up instructions: Follow-up Instructions: With: Address: When: [facility] [address] [place] [address] [facility] (1) In 3 days 07/01/2024 Comments: Please follow-up with your primary care doctor and FITNESS TECHNICIAN for further evaluation and management. Return to the ED for any new or worsening symptoms. With: Address: [facility] [place] In [facility] In the event that this physician does not participate in your insurance network, please consult with your insurance company to find a nearby participating provider. Patient Education Materials: Abdominal Pain, Adult, Vdao-zg-Wlgq A MESSAGE TO ALL PATIENTS REGARDING OPIOIDS PRESCRIPTION OPIOIDS: WHAT YOU NEED TO KNOW Prescription opioids can be used to help relieve flebbeyj-op-yoketq pain and are often prescribed following a [...] Administration (www.fda.gov/Boris (more content not included)... [facility] Anion gap [Moles/Vol] 14 mmol/L Normal 6-16 [facility] Comment on above: Performed By: #### 2 [id number] #### [facility] [address] [place] [address] Calcium [Mass/Vol] 10.3 mg/dL Normal 8.9-11.1 [facility] Comment on above: Performed By: #### 2 [id number] #### [facility] [address] [place] [address] Chloride [Moles/Vol] 106 mmol/L Normal 101-111 [facility] Comment on above: Performed By: #### 2 [id number] #### [facility] [address] [place] [address] CO2 [Moles/Vol] 23 mmol/L Normal 21-31 [facility] Comment on above: Performed By: #### 2 [id number] #### [facility] [address] [place] [address] Creatinine [Mass/Vol] 0.9 mg/dL Normal 0.5-1.3 [facility] Comment on above: Performed By: #### 2 [id number] #### [facility] [address] [place] [address] Glucose [Mass/Vol] 108 mg/dL Normal 55-199 [facility] Comment on above: Performed By: #### 2 [id number] #### [facility] [address] [place] [address] Potassium [Moles/Vol] 3.9 mmol/L Normal 3.5-5.3 [facility] Comment on above: Performed By: #### 2 477020 #### [facility] [address] [place] [address] Sodium [Moles/Vol] 139 mmol/L Normal 135-145 [facility] Comment on above: Performed By: #### 2 479049 #### [facility] [address] [place] [address] Urea nitrogen [Mass/Vol] 7 mg/dL Normal 5-21 [facility] Comment on above: Performed By: #### 2 709974 #### [facility] [address] [place] [address] Urea nitrogen/Creatinine [Mass ratio] 8 No Units Low 10-20 [facility] Comment on above: Performed By: #### 2 560693 #### [facility] [address] [place] [address] CBC w/ Auto Diffon 5 Basophils/100 WBC (Bld) 1.1 % Normal 0.0-2.0 [facility] Comment on above: Performed By: #### 2 [id number] #### [facility] [address] [place] [address] Basophils/Leukocytes Auto (Bld) [Pure # fraction] 0.1 E9/L Normal 0.0-0.2 [facility] Comment on above: Performed By: #### 2 087229 #### [facility] [address] [place] [address] Eosinophils (Bld) [#/Vol] 0.0 E9/L Normal 0.0-0.5 [facility] Comment on above: Performed By: #### 2 130137 #### [facility] [address] [place] [address] Eosinophils/100 WBC (Bld) 0.2 % Normal 0.0-8.0 [facility] Comment on above: Performed By: #### 2 [id number] #### [facility] [address] [place] [address] Erythrocyte distribution width (RBC) [Ratio] 19.8 % High 10.9-14.2 [facility] Comment on above: Performed By: #### 2 490254 #### [facility] [address] [place] [address] Hematocrit (Bld) [Volume fraction] 37.8 % Normal 34.0-46.0 [facility] Comment on above: Performed By: #### 2 191710 #### [facility] [address] [place] [address] Hemoglobin (Bld) [Mass/Vol] 12.0 g/dL Normal 12.0-16.0 [facility] Comment on above: Performed By: #### 2 406324 #### [facility] [address] [place] [address] Hypochromia Auto Ql (Bld) PRESENT Invalid Interpretation Code [facility] Comment on above: Performed By: #### 2 [id number] #### [facility] [address] [place] [address] Lymphocytes (Bld) [#/Vol] 1.7 E9/L Normal 1.0-4.0 [facility] Comment on above: Performed By: #### 2 [id number] #### [facility] [address] [place] [address] Lymphocytes/100 WBC (Bld) 23.6 % Normal 14.0-50.0 [facility] Comment on above: Performed By: #### 2 209493 #### [facility] [address] [place] [address] MCH (RBC) [Entitic mass] 22.8 pg Low 27.0-34.0 [facility] Comment on above: Performed By: #### 2 093238 #### [facility] [address] [place] [address] MCHC (RBC) [Mass/Vol] 31.8 g/dL Normal 31.4-36.0 [facility] Comment on above: Performed By: #### 2 124650 #### [facility] [address] [place] [address] MCV (RBC) [Entitic vol] 71.7 fL Low 80.0-100.0 F [facility] Comment on above: Performed By: #### 2 882756 #### [facility] [address] [place] [address] Microcytes Ql (Bld) PRESENT Invalid Interpretation Code [facility] Comment on above: Performed By: #### 2 [id number] #### [facility] [address] [place] [address] Monocytes (Bld) [#/Vol] 0.3 E9/L Normal 0.2-1.0 F [facility] Comment on above: Performed By: #### 2 780073 #### [facility] [address] [place] [address] Neutrophils (Bld) [#/Vol] 5.0 E9/L Normal 2.0-7.5 [facility] Comment on above: Performed By: #### 2 293502 #### [facility] [address] [place] [address] Neutrophils/100 WBC (Bld) 71.3 % Normal 36.0-75.0 [facility] Comment on above: Performed By: #### 2 533553 #### [facility] [address] [place] [address] Platelet 552.0 E9/L High 150.0-500.0 [facility] Comment on above: Performed By: #### 2 [id number] #### [facility] [address] [place] [address] Platelet mean volume (Bld) [Entitic vol] 7.5 fL Normal 6.4-10.8 [facility] Comment on above: Performed By: #### 2 976871 #### [facility] [address] [place] [address] RBC (Bld) [#/Vol] 5.3 E12/L Normal 4.3-5.9 [facility] Comment on above: Performed By: #### 2 469538 #### [facility] [address] [place] [address] RBC size Nom (Bld) SEE MORPHOLOGY Invalid Interpretation Code [facility] Comment on above: Performed By: #### 2 069508 #### [facility] [address] [place] [address] WBC corrected for nucl RBC Auto (Bld) [#/Vol] 7.0 E9/L Normal 4.0-11.0 [facility] Comment on above: Performed By: #### 2 806076 #### [facility] [address] [place] [address] CBC with Diffon 06-27-2024 Basophils (Bld) [#/Vol] 0.09 10*3/uL [facility] Basophils/100 WBC (Bld) 1 % 0 - 2 % [facility] Eosinophils (Bld) [#/Vol] 0.06 10*3/uL [facility] Eosinophils/100 WBC (Bld) 1 % 1 - 4 % [facility] Erythrocyte distribution width (RBC) [Ratio] 17.9 % High 11.8 - 14.4 % [facility] Hematocrit (Bld) [Volume fraction] 35.1 % Low 36.3 - 47.1 % [facility] Hemoglobin (Bld) [Mass/Vol] 10.6 g/dL Low 11.9 - 15.1 g/dL [facility] Immature granulocytes (Bld) [#/Vol] [facility] Immature granulocytes/100 WBC (Bld) 0 % 0 [facility] Interpretation and review of laboratory results Abnormal [facility] Lymphocytes/100 WBC (Bld) 50 % High 24 - 43 % [facility] Lymphocytes/100 WBC (Bld) 3.25 % [facility] MCH (RBC) [Entitic mass] 22.3 pg Low 25.2 - 33.5 pg [facility] MCHC (RBC) [Mass/Vol] 30.2 g/dL 28.4 - 34.8 g/dL [facility] MCV (RBC) [Entitic vol] 73.9 fL Low 82.6 - 102.9 fL [facility] Monocytes/100 WBC (Bld) 7 % 3 - 12 % [facility] Monocytes/100 WBC (Bld) 0.48 % [facility] Neutrophils/100 WBC (Bld) 41 % 36 - 65 % [facility] Nucleated RBC/100 WBC (Bld) [Ratio] 0.0 % 0.0 per 100 WBC [facility] Platelet mean volume (Bld) [Entitic vol] 9.3 fL 8.1 - 13.5 fL [facility] Platelets (Bld) [#/Vol] 533 10*3/uL High [facility] RBC (Bld) [#/Vol] 4.75 10*6/uL 3.95 - 5.1 1 m/uL [facility] Segmented neutrophils/100 WBC (Bld) 2.65 % [facility] WBC other (Bld) [#/Vol] 6.5 [facility] Abs. Basophil 0.09 k/uL Normal 0.00-0.20 [facility] Comment on above: Performed By: #### C DP, CP, LIP #### [address] [place] [address] International Log[employer] Coordinator: Jennifer Freire MD Abs.Imm.Granulocyte <0.03 Normal 0.00-0.30 [facility] Comment on above: Performed By: #### C DP, CP, LIP #### [address] [place] [address] [employer] Coordinator: Jennifer Freire MD Abs.Neutrophil (Seg) 2.65 k/uL Normal 1.50-8.10 [facility] Comment on above: Performed By: #### C DP, CP, LIP #### [address] [place] [address] [employer] Coordinator: Jennifer Freire MD Basophils/100 WBC (Bld) 1 % Normal 0-2 [facility] Comment on above: Performed By: #### C DP, CP, LIP #### [address] [place] [id number] [employer] Coordinator: Jennifer Freire MD Eosinophils (Bld) [#/Vol] 0.06 10*3/uL Normal 0.00-0.44 [facility] Comment on above: Performed By: #### C DP, CP, LIP #### [address] [place] [id number] [employer] Coordinator: Jennifer Freire MD Eosinophils/100 WBC (Bld) 1 % Normal 1-4 [facility] Comment on above: Performed By: #### C DP CP, LIP #### [address] [place], [place] 1350383 [employer] Coordinator: Jennifer Freire MD Erythrocyte distribution width (RBC) [Ratio] 17.9 % High 11.8-14.4 [facility] Comment on above: Performed By: #### C DP, CP, LIP #### [address] [place], [place] 8438483 [employer] Coordinator: Jennifer Freire MD Hematocrit (Bld) [Volume fraction] 35.1 % Low 36.3-47.1 [facility] Comment on above: Performed By: #### C DP CP, LIP #### [address] [place], [place] [id number] [employer] Coordinator: Jennifer Freire MD Hemoglobin (Bld) [Mass/Vol] 10.6 g/dL Low 11.9-15.1 [facility] Comment on above: Performed By: #### C MILLIE CP, LIP #### [address] [place], [place] [id number] [employer] Coordinator: Jennifer Freire MD Immature granulocytes/100 WBC (Bld) 0 % Normal 0 [facility] Comment on above: Performed By: #### C DP CP, LIP #### [address] [place], [place] 99[address]83 [employer] Coordinator: Jennifer Freire MD Lymphocytes (Bld) [#/Vol] 3.25 10*3/uL Normal 1.10-3.70 [facility] Comment on above: Performed By: #### C DP, CP, LIP #### [address] [place], [place] 9375583 [employer] Coordinator: Jennifer Freire MD Lymphocytes/100 WBC (Bld) 50 % High 24-43 [facility] Comment on above: Performed By: #### C DP CP, LIP #### [address] [place], [facility]83 [employer] Coordinator: Jennifer Freire MD MCH (RBC) [Entitic mass] 22.3 pg Low 25.2-33.5 [facility] Comment on above: Performed By: #### C DP, CP, LIP #### [address] [place], [facility]83 [employer] Coordinator: Jennifer Freire MD MCHC (RBC) [Mass/Vol] 30.2 g/dL Normal 28.4-34.8 [facility] Comment on above: Performed By: #### C DP CP, LIP #### [address] [place], [facility]83 [employer] Coordinator: Jennifer Freire MD MCV (RBC) [Entitic vol] 73.9 fL Low 82.6-102.9 [facility] Comment on above: Performed By: #### C CANDICE PINTO, LIP #### [address] [place], [facility]83 [employer] Coordinator: Jennifer Freire MD Monocytes (Bld) [#/Vol] 0.48 10*3/uL Normal 0.10-1.20 [facility] Comment on above: Performed By: #### C DP CP, LIP #### [address] [place], [facility]83 [employer] Coordinator: Jennifer Freire MD Monocytes/100 WBC (Bld) 7 % Normal 3-12 [facility] Comment on above: Performed By: #### C DP, CP, LIP #### [address] [place], [place] [id number] [employer] Coordinator: Jennifer Freire MD Neutrophil (Seg) 41 % Normal 36-65 [facility] Comment on above: Performed By: #### C DP, CP, LIP #### [facility] [address] [place], [place] [id number] [employer] Coordinator: Jennifer Freire MD NRBC Automated 0.0 per [address] [facility] Comment on above: Performed By: #### C DP, CP, LIP #### [facility] [address] [place] [address] [employer] Coordinator: Jennifer Freire MD Platelet mean volume (Bld) [Entitic vol] 9.3 fL Normal 8.1-13.5 [facility] Comment on above: Performed By: #### C DP, CP, LIP #### [address] [place], [place] [id number] [employer] Coordinator: Jennifer Freire MD Platelets (Bld) [#/Vol] 533 10*3/uL High 138-453 [facility] Comment on above: Performed By: #### C DP, CP, LIP #### [address] [place], [place] [id number] [employer] Coordinator: Jennifer Friere MD RBC (Bld) [#/Vol] 4.75 10*6/uL Normal 3.95-5.11 [facility] Comment on above: Performed By: #### C DP, CP, LIP #### [address] [place], [place] 2039583 [employer] Coordinator: Jennifer Freire MD WBC (Bld) [#/Vol] 6.5 10*3/uL Normal 3.5-11.3 [facility] Comment on above: Performed By: #### C DP, CP, LIP #### [facility] [address] [place], [place] 1369083 [employer] Coordinator: Jennifer Freire MD CHEMISTRYOrdered By: SYSTEM SYSTEM [...] [Mass/Vol] 4.2 g/dL 3.5 - 5.2 g/dL [facility] Albumin/Globulin [Mass ratio] 1.3 {ratio} 1.0 - 2.5 [facility] ALP [Catalytic activity/Vol] 77 U/L 35 - 104 U/L [facility] ALT [Catalytic activity/Vol] 19 U/L 10 - 35 U/L [facility] Anion gap [Moles/Vol] 11 mmol/L 9 - 16 mmol/L [facility] AST [Catalytic activity/Vol] 24 U/L 10 - 35 U/L [facility] Bilirubin [Mass/Vol] mg/dL 0.00 - 1.20 mg/dL [facility] Calcium [Mass/Vol] 9.4 mg/dL 8.6 - 10. 4 mg/dL [facility] Chloride [Moles/Vol] 105 mmol/L 98 - 10 7 mmol/L [facility] CO2 [Moles/Vol] 24 mmol/L 20 - 31 mmol/L [facility] Creatinine [Mass/Vol] 0.7 mg/dL 0.50 - 0.90 mg/dL [facility] Est, Glom Filt Rate - PINF [facility] Comment on above: These results are [...] [Mass/Vol] 79 mg/dL 74 - 99 mg/dL [facility] Potassium [Moles/Vol] 3.7 mmol/L 3.7 - 5.3 mmol/L [facility] Comment on above: Specimen hemolysis h as exceeded the interference as defined by Ji. Value may be falsely increased. Suggest recollection if clinically indicated. Protein [Mass/Vol] 7.4 g/dL 6.6 - 8.7 g/dL [facility] Sodium [Moles/Vol] 140 mmol/L 136 - 145 mmol/L [facility] Urea nitrogen [Mass/Vol] 8 mg/dL 6 - 20 mg/dL [facility] Urea nitrogen/Creatinine [Mass ratio] 11 mg/mg 9 - 20 [facility] Comp Metabolic Profon 2024 Albumin [Mass/Vol] 4.2 g/dL Normal 3.5-5.2 [facility] Comment on above: Performed By: #### C DP, CP, LIP #### [facility] [address] [place] [address] [employer] Coordinator: Jennifer Freire MD Albumin/Glob Ratio 1.3 Normal 1.0-2.5 [facility] Comment on above: Performed By: #### C DP, CP, LIP #### [facility] [address] [place], [place] [id number] [employer] Coordinator: Jennifer Freire MD Alkaline Phos 77 U/L Normal 35-104 [facility] Comment on above: Performed By: #### C DP, CP, LIP #### [facility] [address] [place], [place] 0693683 [employer] Coordinator: Jennifer Freire MD ALT [Catalytic activity/Vol] 19 U/L Normal 10-35 [facility] Comment on above: Performed By: #### C DP, CP, LIP #### [facility] [address] [place] [address] [employer] Coordinator: Jennifer Freire MD Anion gap [Moles/Vol] 11 mmol/L Normal 9-16 [facility] Comment on above: Performed By: #### C DP, CP, LIP #### [facility] [address] [place], [place] 6766083 [employer] Coordinator: Jennifer Freire MD AST [Catalytic activity/Vol] 24 U/L Normal 10-35 [facility] Comment on above: Performed By: #### C DP, CP, LIP #### [facility] [address] [place] [address] [employer] Coordinator: Jennifer Freire MD Bilirubin [Mass/Vol] mg/dL Normal 0.00-1.20 [facility] Comment on above: Performed By: #### C DP, CP, LIP #### [facility] [address] [place] [address] [employer] Coordinator: Jennifer Freire MD BUN/CRE Ratio 11 Normal 9-20 [facility] Comment on above: Performed By: #### C DP, CP, LIP #### [facility] [address] [place] [address] [employer] Coordinator: Jennifer Freire MD Calcium [Mass/Vol] 9.4 mg/dL Normal 8.6-10.4 [facility] Comment on above: Performed By: #### C DP, CP, LIP #### [facility] [address] [place] [address] [employer] Coordinator: Jennifer Freire MD Chloride [Moles/Vol] 105 mmol/L Normal 98-107 [facility] Comment on above: Performed By: #### C DP, CP, LIP #### [facility] [address] [place], [place] [id number] [employer] Coordinator: Jennifer Freire MD CO2 [Moles/Vol] 24 mmol/L Normal 20-31 [facility] Comment on above: Performed By: #### C DP, CP, LIP #### [facility] [address] [place] [address] [employer] Coordinator: Jennifer Freire MD Creatinine [Mass/Vol] 0.7 mg/dL Normal 0.50-0.90 [facility] Comment on above: Performed By: #### C DP, CP, LIP #### [facility] [address] [place] [address] [employer] Coordinator: Jennifer Freire MD GFR/1.73 sq M.predicted among non-blacks MDRD (S/P/Bld) [Vol rate/Area] mL/min/{1.73_m2} Normal >60 [facility] Comment on above: Result Comment: These [...] By: #### C DP, CP, LIP #### [address] [place] [address] [employer] Coordinator: Jennifer Freire MD Glucose [Mass/Vol] 79 mg/dL Normal 74-99 [facility] Comment on above: Performed By: #### C DP, CP, LIP #### [facility] [address] [place] [address] [employer] Coordinator: Jennifer Freire MD Potassium [Moles/Vol] 3.7 mmol/L Normal 3.7-5.3 [facility] Comment on above: Result Comment: Spec imen hemolysis has exceeded the interference as defined by Ji. Value may be falsely increased. Suggest recollection if clinically indicated. Performed By: #### C DP, CP, LIP #### [facility] [address] [place] [address] [employer] Coordinator: Jennifer Freire MD Protein [Mass/Vol] 7.4 g/dL Normal 6.6-8.7 [facility] Comment on above: Performed By: #### C DP, CP, LIP #### [facility] [address] [place] [address] [employer] Coordinator: Jennifer Freire MD Sodium [Moles/Vol] 140 mmol/L Normal 136-145 [facility] Comment on above: Performed By: #### C CANDICE PINTO, LIP #### [facility] [address] [place] [address] International Logistics Coordinator: Jennifer Freire MD Urea nitrogen [Mass/Vol] 8 mg/dL Normal 6-20 [facility] Comment on above: Performed By: #### C CANDICE PINTO, LIP #### [facility] [address] [place] [address] International Logistics Coordinator: Jennifer Freire MD Extra Blueon 06-27-2024 Tube Collected Plasma Yes Invalid Interpretation Code [facility] Comment on above: Performed By: #### 1 [id number] #### [facility] [address] [place] [address] HEMATOLOGYOrdered By: SYSTEM SYSTEM on 06-27-2024 Basophils/100 [...] 06-27-2024 Albumin [Mass/Vol] 5.0 g/dL Normal 3.3-5.0 [facility] Comment on above: Performed By: #### 2 [id number] #### [facility] [address] [place] [address] Albumin/Globulin (S) [Mass conc ratio] 1.4 Normal 1.1-2.2 [facility] Comment on above: Performed By: #### 2 [id number] #### [facility] [address] [place] [address] ALP [Catalytic activity/Vol] 80 Int._Unit/L Normal 21-98 [facility] Comment on above: Performed By: #### 2 [id number] #### [facility] [address] [place] [address] ALT No additional P-5'-P [Catalytic activity/Vol] 15 Int._Unit/L Normal 6-46 [facility] Comment on above: Performed By: #### 2 [id number] #### [facility] [address] [place] [address] AST [Catalytic activity/Vol] 18 Int._Unit/L Normal 5-43 [facility] Comment on above: Performed By: #### 2 [id number] #### [facility] [address] [place] [address] Bilirubin [Mass/Vol] 0.6 mg/dL Normal 0.0-1.1 [facility] Comment on above: Performed By: #### 2 [id number] #### [facility] [address] [place] [address] Bilirubin.direct [Mass/Vol] 0.0 mg/dL Normal 0.0-0.4 [facility] Comment on above: Performed By: #### 2 [id number] #### [facility] [address] [place] [address] Bilirubin.indirect [Mass or moles/Vol] 0.6 mg/dL Normal 0.1-0.9 [facility] Comment on above: Performed By: #### 2 [id number] #### [facility] [address] [place] [address] Globulin (S) [Mass/Vol] 3.6 g/dL Normal 1.4-4.0 [facility] Comment on above: Performed By: #### 2 [id number] #### [facility] [address] [place] [address] Protein [Mass/Vol] 8.6 g/dL High 6.0-7.8 [facility] Comment on above: Performed By: #### 2 [id number] #### [facility] [address] [place] [address] Lactic Acidon 06-27-2024 Lactate (BldV) [Moles/Vol] 1.7 mmol/L 0.5 - 2.2 mmol/L [facility] Lactate [Moles/Vol] 1.7 mmol/L Normal 0.5-2.2 [facility] Comment on above: Performed By: #### L ACTIC #### [facility] [address] [place] [address] International Logistics Coordinator: Jennifer Freire MD Lipaseon 06-27-2024 Lipase [Catalytic activity/Vol] 55 U/L 13 - 60 U/L [facility] Lipase [Catalytic activity/Vol] 55 U/L Normal 13-60 [facility] Comment on above: Performed By: #### C DP, CP, LIP #### [facility] [address] [place] [address] International Logistics Coordinator: Jennifer Freire MD Lipase Levelon 06-27-2024 Lipase [Catalytic activity/Vol] 24 U/L Normal 13-58 [facility] Comment on above: Performed By: #### 2 [id number] #### [facility] [address] [place] [address] Microscopic Urinalysison Bacteria LM Ql (Urine sed) 2+ Abnormal None [facility] Character (U) MICROSCOPIC PERFORME D ON UNSPUN URINE Abnormal NOT REQ. [facility] Character (U) Quantity not sufficient. Abnormal NOT REQ. [facility] Epithelial cells LM.HPF (Urine sed) [#/Area] 2 TO 5 [facility] Interpretation and review of laboratory results Abnormal [facility] Mucus Ql (Urine sed) 2+ Abnormal None [facility] RBC LM.HPF (Urine sed) [#/Area] 0 TO 2 [facility] WBC LM.HPF (Urine sed) [#/Area] 0 TO 2 [facility] No Panel Informationon 06-27 [facility] UA w/Reflex Cultureon 2024 Bilirubin, SemiQt,Ur Negative Normal NEG [facility] Comment on above: Performed By: #### U MICAO, UAX #### [facility] [address] [place], [place] [id number] International Logistics Coordinator: Jennifer Freire MD Blood, Urine Negative Normal NEG [facility] Comment on above: Performed By: #### U MICAO, UAX #### [address] [place], [place] [id number] International Logistics Coordinator: Jennifer Freire MD Clarity (U) Clear Normal CLEAR [facility] Comment on above: Performed By: #### U MICAO, UAX #### [facility] [address] [place], [place] [id number] International Logistics Coordinator: Jennifer Freire MD Color (U) Yellow Normal YEL [facility] Comment on above: Performed By: #### U MICAO, UAX #### [facility] [address] [place] [address] [address] [place], [place] [id number] International Logistics Coordinator: Jennifer Freire MD Glucose Ql (U) Negative Normal NEG [facility] Comment on above: Performed By: #### U MICAO, UAX #### [facility] [address] [place], [place] [id number] International Logistics Coordinator: Jennifer Freire MD Ketones Ql (U) Negative Normal NEG [facility] Comment on above: Performed By: #### U MICAO, UAX #### [facility] [address] [place] [address] International Logistics Coordinator: Jennifer Freire MD Leukocyte esterase Test strip Ql (U) TRACE Abnormal NEG [facility] Comment on above: Performed By: #### U MICAO, UAX #### [facility] [address] [place], [place] 3476883 International Logistics Coordinator: Jennifer Freire MD Nitrite,Ur Negative Normal NEG [facility] Comment on above: Performed By: #### U MICAO, UAX #### [facility] [address] [place] [address] [address] [place], [place] 1785483 International Logistics Coordinator: Jennifer Freire MD PH,Ur 6.0 Normal 5.0-9.0 [facility] Comment on above: Performed By: #### U MICAO, UAX #### [facility] [address] [place] [address] [address] [place], [place] [id number] International Logistics Coordinator: Jennifer Freire MD Protein Ql (U) Negative Normal NEG [facility] Comment on above: Performed By: #### U ARABELLAO, UAX #### [address] [place], [place] 5405483 International Logistics Coordinator: Jennifer Freire MD Spec. [place]coe,Ur >1.030 High 1.010-1.020 [facility] Comment on above: Performed By: #### U MICAO, UAX #### [address] [place], [place] 3431483 International Logistics Coordinator: Jennifer Freire MD Urobilinogen,Ur Normal Normal 0.0-1.0 [facility] Comment on above: Performed By: #### U MICAO, UAX #### [facility] [address] [place] [address] [address] [place], [place] [id number] International Logistics Coordinator: Jennifer Freire MD Urinalysis with Reflex to Cu ltureon 06-27-2024 Bilirubin Ql (U) Negative NEGATIVE [facility] Clarity (U) Clear Clear [facility] Color (U) Yellow Yellow [facility] Glucose Test strip (U) [Mass/Vol] Negative NEGATIVE mg/dL [facility] Hemoglobin Auto test strip Ql (U) Negative NEGATIVE [facility] Interpretation and review of laboratory results Abnormal [facility] Ketones (U) [Mass/Vol] Negative NEGAT NAYE mg/dL [facility] Leukocyte esterase Test strip Ql (U) TRACE Abnormal NEGATIVE [facility] Nitrite Ql (U) Negative NEGATIVE [facility] pH (U) 6.0 [pH] 5.0 - 9.0 [facility] Protein (U) [Mass/Vol] Negative NEGAT NAYE mg/dL [facility] Specific gravity (U) [Rel density] High 1.010 - 1.020 [facility] Urobilinogen Qn (U) Normal 0.0 - 1. 0 EU/dL [facility] Urinalysis,Microon 5 Bacteria 2+ Abnormal [facility] Comment on above: Performed By: #### U DENISSE UAX #### [facility] [address] [place] [address] International Logistics Coordinator: Jennifer Freire MD Epithelial cells LM Ql (Urine sed) 2 TO 5 Normal 0-25 [facility] Comment on above: Performed By: #### U DENISSE UAX #### [facility] [address] [place], [place] [id number] International Logistics Coordinator: Jennifer Freire MD Mucus Strands 2+ Abnormal [facility] Comment on above: Performed By: #### U DENISSE UAX #### [facility] [address] [place] [address] International Logistics Coordinator: Jennifer Freire MD Other Observations MICROSCOPIC PERFORME D ON UNSPUN URINE Abnormal NREQ [facility] Comment on above: Result Comment: Red tity not sufficient. Performed By: #### U DENISSE UAX #### [facility] [address] [place] [address] International Logistics Coordinator: Jennifer Freire MD Urine RBC's 0 TO 2 Normal 0-2 [facility] Comment on above: Performed By: #### U BEE SALCEDOX #### [facility] [address] [place] [address] International Logistics Coordinator: Jennifer Freire MD Urine WBC's 0 TO 2 Normal 0-5 [facility] Comment on above: Performed By: #### U DENISSE UAX #### [facility] [address] [place], [place] 919[address]83 International Logistics Coordinator: Jennifer Freire MD eGFRon 06-27-2024 eGFR 84 mL/min/1.73 m2 Normal >=59 [facility] Comment on above: Performed By: #### 1 [id number] #### [facility] [address] [place] [address] Coding Summaryon 06-26-2024 Coding Summary HTMLBase 64 HndigygjARw9vMi+PGhlYW Q+RH0JZRAgI81jdWUdxU3x D3VTUOaIElngCUYVOTlYHp ZalvWaFI1atSKwFTCl IC8+XL1vVPXrKdlrqIHsd0 B4tUE9K49qwv6nTJtmtXE1 RXPuJbGbfdtdf5mifXn7QK cuNmluOyBt PEIhqD02UBS1qU19Qz39gV SiuQVgi1czrXi4CgLoYLQg QHK2cPorLSosc8DrAIOaZ6 8uvLHzs5R1 TZTkqItegKHjGiHhgAH0vY 5vJOipmkvfb1mmfrbuGru1 tp59nJIgc4V5pNR5B4Vsxw E9JJQzvEYa KjejcRSJuV1tvhweh4idsx pgQsSoUHOxEYq4TXr0ZAVy dBnsOxIlRQ88BPL8VYCvdo RxH3RiYDKa sDfeEiS1h8P6Yr9KY1VHRi gkN7RGAYFCGNlvnOE+PC90 iu41D0ErRusbAau6XDErNV H2sRV9qE8t FQPtDGwxp2L2kRS3K9Rlsj Dcul5we0vbFGYaEUmbW89e xPDut0T8FQQsgLF0XAUwjF rrXoKeoH64 Oyc+VEGbdKozk7VqKxwdz0 hjb4yviPo2WwopLYLeqrVv vLkjDDP6a6EwQw7lRKUxkI V8fLI0jG4n ZuSbEaQ7GQuoM666RgSdaK GcJtvcP29vP6VfnDG+PHRy Kqw5YEChsLitCL8hI5EmTA RpbmctbGVm pTjjMU2iKWJelnyyAPWbrJ 0dYMYvM4h8JgRqEuH6OBft A8CcIHTopvtoIp21qT1oEs MuRwL8SNfh K4WnqiC6DXZzzULvNXwgEB F3H43hf0O8FAQjUAVbGZI2 nXV5vP8ksYxctufebRGhjX sgdmVydGlj MGsuGKfvQ958BSVkpJliTc NvZGluZyBEYXRlOiAgMDEv MTQvMjAyNTwvdGQ+PHRkIH I9zOubAQWf wJInDKacJz2hcNvitEwiBX 1oOZWxoqyrISXwuU5qIJGe aMEjbXfvRO0oUEAakhlhb9 11TbRoQNW7 UMWebSYrZ1MdhJ5vCuOmGZ KiNDZzH1CokTDpGNcjH256 MNmdVwX7SMTgabMiO9HdQU FsaWduOiB0 z3K9Lx1Ai3FgepliH7OheY IwOyNiLngtXDe7I9PuHnpc dHI+LM43YSOxYT38WCq5QX D9iLeyRGcz ZTTlO8OxxF5aBkXdFDQnVA RkOyc+PHRhYmxlIHdpZHRo WFjdAOBpQgKboCicFY5tNa 9yZGVyLWNv mYecnKObDwFfr4dqQNQyXR xpTU8fhPdeD2WqsQO6RVGr f6i3Tq52M26dS8CnqXX+PG ItbAP5uYP0 yY3hUoFnBsG5CUzvZ869Nz AkoNArWljeu4mvz6hrxUk4 AuX7IGVnmoDqeZheOKC6r4 JvWc69S02i IHdpZHRoPSIxNSUiIHZhbG vrhq7wyB7nVe0+PGNvbCB3 eFF9oV9uMpMnJtI6UZplG9 49InRvcCIv Tcmco2wsv4qkpJf0AtJkWN OxygMfzSkvATD8u9BsWg10 P0NdmAiww7NvCtz6yd17mY Msk5B8yZF7 C5WhSSIcnkghyPEjbNkzQE 3pHGOoiwkiXUXbdN6zXKZl G5h2ZiZhIvZ2TRquU9Kvai S3DUQimWVe HSDviKQCzA1codpaj4uaza toQbTzUKQhIMq5RUk4MNKj yCkrTcTeUNB8BwJ4ROF3sY VqmX6wrVsf pwdutI0hZph+AHH8yGOesW UFEB2nBlnhkVE+PHRkIHN0 vOmyPArkKXYdjY4dXYZiN5 l7WnJvJtK9 GAwrI6PopbJ3BXPxxRSwDU VwgTRYaI3kepdtv8reiscj NoTwOYXdBMf8YOl2JNHviY duOiBsZWZ0 NnA3LJW9dIKegX6gqNqevr cgfF8iYbo+QmlydGggRGF0 VJa6E7ZoHck1JWPsdDmzNB 0ncGFkZGlu Fo3tnSbgwOrhDZ2oAGSqid szx768CwKzy9wrKRHnzCGn CExaJNP8C63oj9C0LDKuMU RsZQO3kXM0 aE8nmKzfzjwcjFLaoEyqiq TivJmiIXtgMBajI284KQSw qYzqFcRjPJp8L8BjPvd6UC AyuYwdHV3m bVUtUYihXy9qjVxyaEmcRR 5cMNXzhlaqi409DvEjs7ac YCCdgUAoDXjcUNF1F80no2 L3NKSbIDRp CIB2rTP3dA8iyFcfwjnlgV VmdDsgdmVydGljYWwtYWxp X961DJCcvMddNgTxfCd8F1 RoNuq0PXUd ePoqLV3saJIiVGxlOh3okE zxbRtnKT6lONFmqjggm494 JhLiv4xkPBEquCFeUOdsWQ W4H58oa5D5 HPUyNNFxAEV7dXE9kM6kfK lnbjogbGVmdDsgdmVydGlj DHurADgeV145QRWehUkoNk BhdGllbnQg DQuzURm5V9GfFokpeST+PC 03EJStWV09gXEjtHEpn2zw jUq6NxEnDOJjEIS7cVnhUI qwb0CvUMCd M27rhTZix2P3PMEqpOyvdA GbFaAogZY4mT6vESjlzmfd m5gmruhfIrqmx9rrgn28sK 06H13uULzk ZHRoPSIzMCUiIHZhbGlnbj 8apD7cJm6+LRLwqPE7gWO8 vG6tUSAbZlY9MWnuB403Xd RvcCIvPjxj f6awj1ocfGb8XoA3FQVryz PujCdfLCO9k6RpOb35L75y IHdpZHRoPSIyMCUiIHZhbG pxzy4bnR4z Ii8+THZhrFR3cFI2hT2qGk CsLtN5TAzmH259HyVdjBQd LexrW13kL2JotEG+PHRyPj c2RJUqyRms LX2tzTCsQMieRi6vWGA0Bp MmRqRoSCspY0BvVWRuhsyh dhhekYI8KSKnPFDeoO26Ic 9udDogMTBw iOZWjX7mpibxg9dfivevOo HeQSGuSQe1ODz7BSHqrPri FvVhJDY4XqC3BKC5mCQdcH 1hbGlnbjog fS2cV8KrJVYgyquzNw58hB 0hRoHlWqY0PCqfZkc+SE9X QVJELCBTVEFDSUUgTEVFPC 11FQ41eHQv t5J1rQU0P8JqTXLwdrwfpw wcdJI0FSRmMVCocC53yWWn BDetLq9co0O6s703BGHrSH RxoH76De7v xPwoLYWoqLBBtK9luocah8 huywtiYkKcURDaHGb3ZAg5 CPZrfVevHbTxJFH4TtD7RY I9cJLlqW0o xUqsylxagC1aYrb+MDcvMz SoVWi5TvjyfIX+PHRkIHN0 kXvlATgkMMPleO1oJKJjJ7 f4NuLeNmD3 RMfwQ6QsRMYryzorXj93zF 4hNtCbPrT1VTbhI5YgwkI5 AERatIKsKWlsVZS7B21nr4 V5PVOoMCXc NYE0oXX7sM9wyVibudadhE VmdDsgdmVydGljYWwtYWxp A858AHBxeNemYdJ1KPhsHW EfHW37EV59 xDAla4M3mHG0N1FrEVUvup amteblqUA7KHSgBOXynL80 zTPxHQzmAh1tc3S8n115TB JkDJHonB38 Yd6efQdzATMyzPTMxI0bcf nxh8rxrwuzMiDoKGSgGNj0 XJy9KJKfwLcgEzSuXFA6Fz W1LQI0cUSg pL3jwQhjzhxsjX7iVfj+Rk XEZYoOWO99SS46hTHpj1F7 rLB8Y0OeTYHbnusdtscplR A4IXRqXEYd zN32pZZhRQqiPa7ze0F3d6 76YMRcAADtlM19Np0wpHzs NQYwtBTAmO9fcriim8mxnr ogIzAwMDAw YOy4FXr0YMOfsRweBpCaBZ A6QpG5VAI2nTSfkZ8eeJnd tncyaD2nMeq+JF0wdyzsgd L2ZM79QN63 M5BlXtuiaPIcfSZ+PHRhYm xlIHdpZHRoPScxMDAlJyBz cQmwDR6fCe5sFHIrDVXpbW xhcHNlOiBj f3qkVTVlHKwoHM2ckWqkZ8 KgyNM6HKVas6c2Jt68K72k Z7JjqKM+MVOiyJG0oTL7aJ 7sIaDoZaZ6 BOwvM267PuYefKSpDocnx7 flv5igeSx3XaBuUCBcutUp xJbjLCN0c1HvBb32A96nOO dpZHRoPSIy XBVpVDJqpRwkus6aaQ4vPt 8+HZEouGH3iCT4aN9tCmDg SxL7MCtfX978QyEftUGmTc fmE72lZ6Kg dXA+YZRkArx2HYDrmEnmYV 0cmTIkFMgfXy6uKCI2LkEj HjHxBQipJ8EbAXPxtljyli mumEX7FYIk SAUzwE17Mt1zhTswBp5bDU XrADU3IZAavPGnX2QlyO5f XxEdTZZvGEYhI1YcrIFjAP unG060WUbx DdM4NXBtkbWxG4PfWOPoqJ gpTvN2l9F8Dp5YkCwboUQy DX5sIhFeKQh5W2KpCha3PB IhdRjzJK4y xGGpUJsqHr0ytLfsuXhsYE 2oKZLrbqswv820WgTfa3at FHZzmOGwVAuiIQN0Z61dr7 Z3HRHhQGOg NPP9iAW0kZ7htQunvwitbU VmdDsgdmVydGljYWwtYWxp V384EWJbaUadHdOIHjw1Z1 FzMrd3KOUr fEyxTB0wuPYqBPboQc4taF dtqXqjRJ1jKAMzmcfhu332 UjAhl6ukJLZdmOLtTWuoOG R4W51yp5D8 OLTzAZOiRKA6jGK2yB0vtL lnbjogbGVmdDsgdmVydGlj VJkhRTyiG605FWXtrIulIa 0BQjt1I0Xm Kmo3YJEyrEvkZL2vcBMpFM tnLv0ziYrnhBvzQF3iQALl gwpmr097JdLrj0oiHIWnhP QgVGltZXM7 L42fj2V6WSGbPOQcNEC6gN A8dH8nvNmsfpwbvYXrdLmb dfQrxTwoCYsjKMuhY738BX RvcDsnPlBh eWVyOjwvdGQ+QT44bc66T1 EvXvlkMmb3KQGeOGW6dUU0 zT7jWIGpSNkue2V7mWS8W4 BfyzLroo4x b2x (more content not included)... Normal [facility] CRPon 06-25-2024 CRP [Mass/Vol] 0.5 mg/dL Normal <=1.9 [facility] Comment on above: Performed By: #### 2 [id number] #### [facility] [address] [place] [address] CT Abdomen/Pelvis w/o Contra ston 06-25-2024 CT [...] Oral contrast amount in ml's: 0 Normal [facility] ED Clinical Summaryon 2024 ED Clinical Summary ED Clinical Summary [place] [address] ED Clinical Summary Person Information Name: ANTONIA NOYOLA/[facility] Age: 39 Years : 1985 Sex: Female Language: Jordanian PCP: NONE, XXXX Marital Status: Visit Id: Visit Reason: Abdominal pain; ABDOMINAL [...] 02:50:14 ADDRESS: [address] [place] [id number] PHYS DOC NOTES: MEDICAL INFORMATION: Prescriptions Given: New Medications [facility]/pharmacy #[id number], [address] [place], [place] [id number], [phone] acetaminophen-oxycodon e (Percocet 5 mg-325 mg oral [...] Pain, Adult Follow up: With: Address: When: [place] [address] Business (1) In 3 days 06/28/2024 DIAGNOSIS: Abdominal pain, acute Normal [facility] ED Note-Physicianon 06-25-19 ED Note-Physician ED [...] month ago she had been sent to [place] and they found a mass in her [...] and Complexity of Problems Differential Diagnosis: [] [facility] Data External documents reviewed: N/A [...] primary care physician as well as 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 Discussed return precautions. Patient was discharged in stable condition. Shared decision making: As above Code status: N/A Assessment/Plan Abdominal pain, acute (R10.9: Unspecified abdominal pain) Ordered: acetaminophen-oxycodon e, 1 tab(s), Oral, q8hr for 3 day(s), 9 tab(s), Refill(s) 0, [facility]/pharmacy #[id number], 165, cm, 06/24/24 19:33:00 [...] Oral, q8hr Follow-up With When Contact Information Ernie CHIRINOS In 3 days 06/28/2024 EST [address] [place] [phone] Business (1) Additional Instructions: Patient Education Abdominal Pain, Adult Problem List/Past Medical History Ongoing No chronic problems Historical Endometriosis Ovarian cyst Procedure/Surgical History Hysterectomy. Medications Inpatient HYDROmorphone 1 mg/mL injec (more content not included)... Normal [facility] Comment on above: Result Comment: Elec tronically Signed By: Ritesh Heath DO\.br\Date and Time Signed: 06/25/24 02:44 EST ED Patient Summaryon 025 ED Patient Summary ED Patient Summary [address] [address] Patient Discharge Instructions Person Information Name: ANTONIA NOYOLA Age: 39 Years Arrival Date: 06/24/2024 19:23:55 Discharge Diagnosis: Abdominal pain, acute Primary Care Physician: NONE, XXXX Provider Information Primary Provider: Ritesh Heath DO Advanced Die Press Operator:None The exam and treatment you received in the Emergency Department were for an urgent problem and are not intended as complete care. It is important that you follow up with a doctor, nurse practitioner, or physician???s front end assistant for ongoing care. If your symptoms become worse or you do not improve as expected and you are unable to reach your usual health care provider, you should return to the Emergency Department. We are available 24 hours a day. ANTONIA NOYOLA has been given the following list of patient education materials, prescriptions and follow-up instructions: Follow-up Instructions: With: Address: When: Javyedjuan daniel [place] [address] Business (1) In 3 days 06/28/2024 In the event that this physician does not participate in your insurance network, please consult with your insurance company to find a nearby participating provider. Patient Education Materials: Abdominal Pain, Adult A MESSAGE TO ALL PATIENTS REGARDING OPIOIDS PRESCRIPTION OPIOIDS: WHAT YOU NEED TO KNOW Prescription opioids can be used to help relieve pbapinrt-re-iklvjd pain and are often prescribed following a [...] be struggling with addiction, tell your health wound care physician and ask for guidance or call S (more content not included)... Normal [facility] Sed Rate Automatedon 025 ESR (Bld) [Velocity] 35 mm/h High 0-34 [facility] Comment on above: Performed By: #### 1 [id number] #### [facility] [address] [place] [address] BMPon 06-24-2024 Anion gap [Moles/Vol] 13 mmol/L Normal 6-16 [facility] Comment on above: Performed By: #### 2 [id number] #### [facility] [address] [place] [address] Calcium [Mass/Vol] 9.9 mg/dL Normal 8.9-11.1 [facility] Comment on above: Performed By: #### 2 [id number] #### [facility] [address] [place] [address] Chloride [Moles/Vol] 107 mmol/L Normal 101-111 [facility] Comment on above: Performed By: #### 2 [id number] #### [facility] [address] [place] [address] CO2 [Moles/Vol] 23 mmol/L Normal 21-31 [facility] Comment on above: Performed By: #### 2 [id number] #### [facility] [address] [place] [address] Creatinine [Mass/Vol] 0.7 mg/dL Normal 0.5-1.3 [facility] Comment on above: Performed By: #### 2 [id number] #### [facility] [address] [place] [address] Glucose [Mass/Vol] 116 mg/dL Normal 55-199 [facility] Comment on above: Performed By: #### 2 [id number] #### [facility] [address] [place] [address] Potassium [Moles/Vol] 3.9 mmol/L Normal 3.5-5.3 [facility] Comment on above: Performed By: #### 2 [id number] #### [facility] [address] [place] [address] Sodium [Moles/Vol] 139 mmol/L Normal 135-145 [facility] Comment on above: Performed By: #### 2 [id number] #### [facility] [address] [place] [address] Urea nitrogen [Mass/Vol] 6 mg/dL Normal 5-21 [facility] Comment on above: Performed By: #### 2 [id number] #### [facility] [address] [place] [address] Urea nitrogen/Creatinine [Mass ratio] 9 No Units Low 10-20 [facility] Comment on above: Performed By: #### 2 [id number] #### [facility] [address] [place] [address] CBC w/ Auto Diffon 5 Basophils/100 WBC (Bld) 1.2 % Normal 0.0-2.0 [facility] Comment on above: Performed By: #### 2 [id number] #### [facility] [address] [place] [address] Basophils/Leukocytes Auto (Bld) [Pure # fraction] 0.0 E9/L Normal 0.0-0.2 [facility] Comment on above: Performed By: #### 2 [id number] #### [facility] [address] [place] [address] Eosinophils (Bld) [#/Vol] 0.0 E9/L Normal 0.0-0.5 [facility] Comment on above: Performed By: #### 2 [id number] #### [facility] [address] [place] [address] Eosinophils/100 WBC (Bld) 0.4 % Normal 0.0-8.0 [facility] Comment on above: Performed By: #### 2 [id number] #### [facility] [address] [place] [address] Erythrocyte distribution width (RBC) [Ratio] 19.4 % High 10.9-14.2 [facility] Comment on above: Performed By: #### 2 [id number] #### [facility] [address] [place] [address] Hematocrit (Bld) [Volume fraction] 37.3 % Normal 34.0-46.0 [facility] Comment on above: Performed By: #### 2 [id number] #### [facility] [address] [place] [address] Hemoglobin (Bld) [Mass/Vol] 11.8 g/dL Low 12.0-16.0 [facility] Comment on above: Performed By: #### 2 [id number] #### [facility] [address] [place] [address] Hypochromia Auto Ql (Bld) PRESENT Invalid Interpretation Code [facility] Comment on above: Performed By: #### 2 [id number] #### [facility] [address] [place] [address] Lymphocytes (Bld) [#/Vol] 1.3 E9/L Normal 1.0-4.0 [facility] Comment on above: Performed By: #### 2 [id number] #### [facility] [address] [place] [address] Lymphocytes/100 WBC (Bld) 30.4 % Normal 14.0-50.0 [facility] Comment on above: Performed By: #### 2 [id number] #### [facility] [address] [place] [address] MCH (RBC) [Entitic mass] 22.8 pg Low 27.0-34.0 [facility] Comment on above: Performed By: #### 2 [id number] #### [facility] [address] [place] [address] MCHC (RBC) [Mass/Vol] 31.6 g/dL Normal 31.4-36.0 [place] [facility] Comment on above: Performed By: #### 2 [id number] #### [facility] [address] [place] [address] MCV (RBC) [Entitic vol] 72.2 fL Low 80.0-100.0 F [facility] [place] Comment on above: Performed By: #### 2 [id number] #### [facility] [address] [place] [address] Microcytes Ql (Bld) PRESENT Invalid Interpretation Code [facility] Comment on above: Performed By: #### 2 [id number] #### [facility] [address] [place] [address] Monocytes (Bld) [#/Vol] 0.2 E9/L Normal 0.2-1.0 F [facility] [place] Comment on above: Performed By: #### 2 [id number] #### [facility] [address] [place] [address] Neutrophils (Bld) [#/Vol] 2.6 E9/L Normal 2.0-7.5 [facility] Comment on above: Performed By: #### 2 [id number] #### [facility] [address] [place] [address] Neutrophils/100 WBC (Bld) 62.2 % Normal 36.0-75.0 [facility] Comment on above: Performed By: #### 2 [id number] #### [facility] [address] [place] [address] Platelet mean volume (Bld) [Entitic vol] 7.6 fL Normal 6.4-10.8 [facility] Comment on above: Performed By: #### 2 [id number] #### [facility] [address] [place] [address] Platelets (Bld) [#/Vol] 563.0 E9/L High 150.0-500.0 [facility] Comment on above: Performed By: #### 2 [id number] #### [facility] [address] [place] [address] RBC (Bld) [#/Vol] 5.2 E12/L Normal 4.3-5.9 [facility] Comment on above: Performed By: #### 2 [id number] #### [facility] [address] [place] [address] RBC size Nom (Bld) SEE MORPHOLOGY Invalid Interpretation Code [facility] Comment on above: Performed By: #### 2 [id number] #### [facility] [address] [place] [address] WBC corrected for nucl RBC Auto (Bld) [#/Vol] 4.2 E9/L Normal 4.0-11.0 [facility] Comment on above: Performed By: #### 2 [id number] #### [facility] [address] [place] [address] CHEMISTRYOrdered By: SYSTEM SYSTEM on 06-24-2024 Albumin [...] 35 mm/h High 0 - 34 mm/hr [facility] HemeAutoSS Hep Func Panelon 06-24-2024 Albumin [Mass/Vol] 4.6 g/dL Normal 3.3-5.0 [facility] Comment on above: Performed By: #### 2 [id number] #### [facility] [address] [place] [address] Albumin/Globulin (S) [Mass conc ratio] 1.1 Normal 1.1-2.2 [facility] Comment on above: Performed By: #### 2 [id number] #### [facility] [address] [place] [address] ALP [Catalytic activity/Vol] 79 Int._Unit/L Normal 21-98 [facility] Comment on above: Performed By: #### 2 [id number] #### [facility] [address] [place] [address] ALT No additional P-5'-P [Catalytic activity/Vol] 17 Int._Unit/L Normal 6-46 [facility] Comment on above: Performed By: #### 2 [id number] #### [facility] [address] [place] [address] AST [Catalytic activity/Vol] 21 Int._Unit/L Normal 5-43 [facility] Comment on above: Performed By: #### 2 [id number] #### [facility] [address] [place] [address] Bilirubin [Mass/Vol] 0.3 mg/dL Normal 0.0-1.1 [facility] Comment on above: Performed By: #### 2 [id number] #### [facility] [address] [place] [address] Bilirubin.direct [Mass/Vol] 0.0 mg/dL Normal 0.0-0.4 [facility] Comment on above: Performed By: #### 2 [id number] #### [facility] [address] [place] [address] Bilirubin.indirect [Mass or moles/Vol] 0.3 mg/dL Normal 0.1-0.9 [facility] Comment on above: Performed By: #### 2 [id number] #### [facility] [address] [place] [address] Globulin (S) [Mass/Vol] 4.0 g/dL Normal 1.4-4.0 F [facility] [place] Comment on above: Performed By: #### 2 [id number] #### [facility] [address] [place] [address] Protein [Mass/Vol] 8.6 g/dL High 6.0-7.8 [facility] Comment on above: Performed By: #### 2 [id number] #### [facility] [address] [place] [address] Lipase Levelon 06-24-2024 Lipase [Catalytic activity/Vol] 29 U/L Normal 13-58 [facility] Comment on above: Performed By: #### 2 [id number] #### [facility] [address] [place] [address] SEROLOGYOrdered By: Levi rajan on 06-24-2024 HCG.beta subunit (U) [Moles/Vol] Negative Normal [facility] Man Sero U BetaHcg Qualon 06-24-2024 HCG.beta subunit (U) [Moles/Vol] Negative Normal [facility] Comment on above: Performed By: #### 2 [id number] #### [facility] [address] [place] [address] UA with Cult Rflxon 06-24-19 25 Bilirubin Ql (U) Negative Normal Negative [facility] Comment on above: Performed By: #### 4 [id number] #### [facility] [address] [place] [address] Clarity (U) Clear Normal Clear [facility] Comment on above: Performed By: #### 4 [id number] #### [facility] [address] [place] [address] Color (U) Colorless Abnormal Yellow [facility] Comment on above: Result Comment: Micr oscopic readings are only performed on those samples that meet specific criteria set forth by [facility]. Performed By: #### 4 [id number] #### [facility] [address] [place] [address] Glucose Ql (U) Negative Normal Negative [facility] Comment on above: Performed By: #### 4 [id number] #### [facility] [address] [place] [address] Hemoglobin Auto test strip (U) [Mass/Vol] Negative Normal Negative [facility] Comment on above: Performed By: #### 4 [id number] #### [facility] [address] [place] [address] Ketones Auto test strip Ql (U) Negative Normal Negative [facility] Comment on above: Performed By: #### 4 [id number] #### [facility] [address] [place] [address] Leukocyte esterase Auto test strip Ql (U) Negative Normal Negative [facility] Comment on above: Performed By: #### 4 [id number] #### [facility] [address] [place] [address] Nitrite Auto test strip Ql (U) Negative Normal Negative [facility] Comment on above: Performed By: #### 4 [id number] #### [facility] [address] [place], [place] [address] pH (U) 7.0 [pH] Invalid Interpretation Code 5.0-9.0 [facility] Comment on above: Performed By: #### 4 [id number] #### [facility] [address] [place] [address] Protein Ql (U) Negative Normal Negative [facility] Comment on above: Performed By: #### 4 [id number] #### [facility] [address] [place] [address] Specific gravity (U) [Rel density] 1.003 Invalid Interpretation Code 1.005-1.030 [facility] Comment on above: Performed By: #### 4 [id number] #### [facility] [address] [place], [place] [address] Urobilinogen (U) [Mass/Vol] Negative Normal Negative [facility] Comment on above: Performed By: #### 4 [id number] #### [facility] [address] [place], [place] [address] Type of Urine collection method Clean Catch Normal [facility] Comment on above: Performed By: #### 4 [id number] #### [facility] [address] [place] [address] URINALYSISOrdered By: SYSTEM SYSTEM on 06-24-2024 Bilirubin Ql (U) Negative Normal Negativemg/ dL FT UA Auto SS Clarity (U) Clear (06/24/24 11:36 PM) Normal Clear FT UA Auto SS Color (U) Colorless 1 *ABN* (06/24/24 11:36 PM) Invalid Interpretation Code Yellow [facility] Auto SS Comment on above: Interpretive Data: M icroscopic readings are only performed on those samples that meet specific criteria set forth by [facility]. Glucose Ql (U) Negative Normal [...] Urobilinogen (U) [Mass/Vol] Negative Normal Negativemg/ dL [facility] UA Auto SS URINALYSISOrdered By: Ritesh bishop on 06-24-2024 UA Spec Desc Clean Catch (06/24/24 11:36 PM) Normal [facility] UA Auto SS Work Phone: eGFRon 06-24-2024 eGFR 114 mL/min/1.73 m2 Normal >=59 [facility] Comment on above: Performed By: #### 1 [id number] #### [facility] [address] [place] [address] Coding Summaryon 06-23-2024 Coding Summary HTMLBase 64 EolftxomLBh2kUq+PGhlYW Q+NE3LGWLgT28qiCCxkL1x R1MPKKoUVmsgFEHZNKwUQd QvzuTpIO2wpXPdNRMi IC8+BD2zVETtPpgrwMAeu6 U6cFW4U50pjp4hCJhfoVR8 YJCiIuOqnwcoe6uqkMs4XR cuNmluOyBt PBUucQ82SEP4cK24Yc03lP HfdODdu6mdtVq3CwVaWMKx OFX5nDoiLPrwy9DdDIDwE7 6heENim5A4 MIVbwZzcgBKbYpChlNT4mO 0wBTtvuffog2hkjuqhTgy7 cn60rBLhc8B3iWO5M3Athv A3TARdxYSj QfxufZFKyB4gihcts7vxvu gwOpYhIJWjFMk8YUs7IMQa hLwmDrNsQB06UUT2UCSaas HdQ4PpOOFi aSlbRlX2u3F2Ww8BA1MIZx fuV1BCNIXMZVvlvIW+PC90 pq95G2QiMuwlNyr6KREyUH J2dHE8rC3s IYHgPFecb2E7xGS1S1Uctw Cyws4sb2huNIHfBMxlS50z kFZpg1M3GPNwrIS8HBJskE puVhRqzT77 Oyc+ESKopOehd0IhAsikt5 khy0igyDg3YpbpXZMtotIu gZhcOJD5k1TrKz6oQLBdoD T2kAQ7oV5o OtSaVqR8LObpX141RwYwvD KsZxzfN28wM3XsqNH+PHRy Bht8SYWlsSvnJC8kI1OgEV RpbmctbGVm rVtjEY5rRZXybyshRMOnbF 9hCXOdQ4f5DmTvOnA8XCau F1FxKQZraphaLp40dV9tJg TuMmO4APnn F2GrkiS8HQWhlJTkMGzePX U0A90bw5X0CBIxEBExQTU8 iOS0yP2khNvgofnwhUFqtK sgdmVydGlj RFfpFXbnA527EQHseIioIp NvZGluZyBEYXRlOiAgMDEv MTEvMjAyNTwvdGQ+PHRkIH O2nZpwYGVn oXWvAEkvLf2roKqcaDtiZZ 4gROIdcoamJOKkuO2mVPJd rXTfiIcaKC0rMRLurvvfu8 79AeLcJWL5 LTTojMQoE0GctI6pYiCoXB SnCQLdO8YwnURiNQceC275 KXlaWkY6WGNfivCbW9DbQK FsaWduOiB0 l5M6Oe7Ne2QbyrfjU8MmwS QcYgAeBzdkACg3Q5AmDavw dHI+ZZ26GOTnHX71OZo0UZ H4hQeiEHdm VRLlW8PqtN7kXnDqLCShMS RkOyc+PHRhYmxlIHdpZHRo JUnyJCExZaQrtIxiGG7sBm 9yZGVyLWNv xIlhyWIgLzYrp3sqAUBcMV bnYF2zpQvuG2PiaEB5WOZi m5a7Wk23U45vI0TdjZE+PG CrlMN5sDW9 yP2cHmWqYqP6TVapS535En IbsXMdPmpcv1ibe4tujYd5 BpJ9UNZyagTfdBbfFIG0h4 RsOq75C36c IHdpZHRoPSIxNSUiIHZhbG iyon7wzM6jUy8+PGNvbCB3 yCR6eR5aHlEfEmS4ATvrH2 49InRvcCIv Hqdbz5orz6eweUe6UdYaIL WjdmMcpGlwZLO5f5UdWp59 I4XppLnws4XhIfe9bq74iF Msg2N8hSQ6 O8UoZKWrvwurjTYfsYvcPS 1eGATbarmjZQZerO9gJFUk V1c9ZeKtHwC3IThxZ5Sjln L0EFHrgSOs SMGzwXHQoK9nuufvb8hqwh mqDdHwYPKpIAl6IYe6BAAw fUnoIaWuCJJ9VyX0PLR3eK RtzR7nkOvy ptwqfG8hOpu+KSB5wQEawI TWPT6rNooagTQ+PHRkIHN0 bIcgDRkvZTPvxL6lXWHoW8 t7CqZeKgE2 DEjxD5LkadX7VLEhxMFpIZ LpuXHUcL9jpugur4teqoxj JvAfERBcDHk6ACj9MWXqeY duOiBsZWZ0 RlH2OBX5fCZglH7viOrbuk jjrA1wPih+QmlydGggRGF0 KGp4H1ZwQjt2JFRmkGymWY 0ncGFkZGlu Cl6itVbbyEkuPG3xBYYxld cnd918PiHde2qeLGOlkJAk EUgjZUU1F77bl1J6UALeMF VmKNC9mQR4 iN2kpPynzyppiDEhwGsmky FvtLxzJDqnRAcjO826FJEy oSsfPsApAYa7R3BsLfk3OQ IunLitON6v hDMmLPnaUz0tkGbcxUxxZF 2rWOZuiiibs746ThHkd7mg NHMyzFTiGBzfHTZ3K97ao1 U4AVAeHDKr TAH8uFZ7tV1mwNkrowtypQ VmdDsgdmVydGljYWwtYWxp I789FNIpiOfbUiNzvKb5S3 CyUvy7MOHz oOxpBW5edEGyBBwoMr3nmO tewTcgJE2yMWDsfhoqg143 ExVfc8xlMPGcbDWqEThwIJ V7C38yp0J9 MYDhOFXmBJL1cBZ0uJ4gvD lnbjogbGVmdDsgdmVydGlj DMbeCKohC238MAKwsQfbZc BhdGllbnQg BAatSJd4D3HrVdrojRO+PC 38QZAaFM73rAXhpAPpw4ls lFo6FiRbWRCdWDT6vSwvEN iqo0VxCVMr S42grEScm8G3GDUyxYkccV QyDlPhsJV1yK8lYJbbacma r3rupoyaDvpxd5mlvm33aN 68C00vKWbz ZHRoPSIzMCUiIHZhbGlnbj 7idP1nCb3+NRAohRO8wNX7 bP3xWNQfCpD0HDrgA092Pj RvcCIvPjxj i6wkt4gpgWc4FqM3KBGulj LcyXooOWW8p9ItYg76B60i IHdpZHRoPSIyMCUiIHZhbG rwaw2atX8n Ii8+DDCrfQZ3xGW8cZ6tHz NnJkE7JSxzO492IzQthKPt ApamS57xU6UvaFH+PHRyPj s7RUOsqYag KH9gkBMtGHevZn7zQUJ8Cx LhWwAyXXkrJ0KhKSAnwiee ywwzdWZ8PWZqKVRgqA46Nj 9udDogMTBw gGLBqV3qymlgi1jrgpnsAz WdAIXbGBf6BNk2AKRkcRaa BrGrTFR8IiZ0WWC3vWNnaE 1hbGlnbjog iX3yW7CvNMOsxapyPq38aT 5xAlUoCoK8QLnxTwl+SE9X QVJELCBTVEFDSUUgTEVFPC 85XF01bUPd z9P8tJM3O1EpZTOzjvnafq hmoOY5MVKaTRQfcV84mJEc WRgiPa4bj0L7z425LHXzKR YldG52Nj5r gRlmCFJyxVTPlU7hkqafg2 qygiukKfTyGOYcCHu4WIz5 NNTlhLrmQsCdHJC7UpD7FF V6wSJqrQ7b xZbxgephaB6tPqc+MDcvMz BdZJh9UrcazZH+PHRkIHN0 eUaeRBgeFJEiaX5fEENaM2 i1ExSbByA2 RWmpW2UoHNTcbtdxWm70dK 5xTxMcWuE3VPnvP1RkxxW9 MDClqUUyKDkiEKA8I12wn2 C1VBFpPFSb UWL4zLH6jI6jxLttcgeecQ VmdDsgdmVydGljYWwtYWxp O282VKYorQkhKnD0HVeuYQ SpGT29SP13 rODgq5P7oXG9Y7NfSNYwlc xswyfdpKG8JWVjQVIabJ31 nKHvQXbtKs5gh2F7y511DX YeKVUtzO09 Fs0foVkhDSQfsVVRhY0mzf zin0kjykofEkRkOPKaHFb7 ROx0XUIiiRaqZnQpUKI2Cx L3KOO6nEWg cK2lhMwrckztvQ8sPhd+Rk BGNTgOGN96MF94gCTtu3I8 wXK7Z2FnINRjeptgylzxdN P6JLQxJVWd gW81zFGqGYtuJv3td3U4k9 54LICpWUCmrA94Hx3shTcg ADTxlKRMaI4wipwht0ybln ogIzAwMDAw KHp3NHf0QMQwbDjqUhAsJU E1CbN4PBT2nNVqtB1aoZrc wfwbqP4sPdc+PP2lriqftc A4AB46ME25 M7IeDvsrsGOpwEB+PHRhYm xlIHdpZHRoPScxMDAlJyBz hQymGK2uWw5dEKJeSGWgqO xhcHNlOiBj w5ohCPHoDHcnKW8bjHtoD0 YckHB1HIRon9j5Ns40K63r Y7CofGF+ZXWxgIH6lVH4gB 9wYjAdPpQ5 FZahO909SxPguDPoFnmyz9 dak2zrvEy9YuRoWTYigxEv cGxdPTX7y4LrFo28O16mED dpZHRoPSIy BGJpQELknTjvlf5pdT9iWo 8+ADRifAB4hTS9lM8eFiDe GsT8WQeiR202DlJnfXErFu beJ36yT5Jh dXA+DGCaHnl9SSGvmJpmWL 7icOVyYXpnNx1hSFQ5DnKo AnNiDEbvC9KaYIUzkuwdyn ckcRO3ARKc GNYieJ54Je2clUxgDg7iMG FcRHE0MMOlxIOpI9CtuH2e NkWyZZNkTXArD6MtrKVvIK kaG014LKbi GmA4MZOkztUgW4BuEUPwnO zwDpO3k9I0Xh8CfXpeuAYt XW0tQqCbVPy9V8DuMvp2GS WaqKbcNA9p qUFmMWrmEx0kgNpblJmdHM 1uTYRrqascm561NyQoy7tc QIPcvPQbKIxiPNQ9Z26ju5 U9FYLbLDIm MOS0gRJ1sV9unBqlbgtxjW VmdDsgdmVydGljYWwtYWxp H070WBNgcQkiFcCKMvd4U4 QxYao4JIDe yUpkCH4avNBhFJthAk3chY vrxAllXE6jLSNanyrsa602 XwEim4nxYXRvhMLgVGnyCX K1P15wy3Q4 EDAyGUFnZJR0lXP6qQ5ojT lnbjogbGVmdDsgdmVydGlj WCzsWPvaD658MASowOruJj 7TVfa3P6Rq Ofw3YJHghUvfBT0jqQWnGU teRl3ytYzlhVpaNH1xCHKh jdhfb096HfIts6mgBSNmdV QgVGltZXM7 M11uy7F1LFZwNFScLKH6iN T2qU9ruTunswzdkCBlrEzq uzLrqLqtUSyaHYstF587CK RvcDsnPlBh eWVyOjwvdGQ+DH40kf90Q1 ZqSrobIkc0ATZpIFM7fFX4 dY3iBSNdRIzmx1G2tSB7K2 SxymEjwm7z b2x (more content not included)... [facility] Coding Summary HTMLBase 64 YkfjyryqHYt0bMl+PGhlYW Q+SL4TNVHlN92zrJPoiZ0p J7NSLMjBNozyHYIVXLnIOv HdgiQrAC7ouPLiHJAo IC8+GE8mDORpAgscnUBag5 J2aUP2Z93lub1bHFwwlZL1 PQVxVgXvgyrqd5kyqUa8LF cuNmluOyBt TBYptO65TWS3mR91Du62dW ZvqPGfk4vpoJy4LbUmBGPv ARN8aMgtMOmod5TdODZwV4 9fhNPbt6N3 NYBtdWgnjCSiWgNuvYT8wM 3eHEnngflpl5cticzpHll6 er10hZWqf0M1gIE2D2Dpdn F9QVPahHIt YbjpcBBArJ3voistt8gepe iuHcEzJUOnLHm6JEb0NWXm iScaFgWlLX30YMP2PKZfov BgL3KdEQMc zGzoYeB2m9Y8Ww5ZN2ZYXp irW1WUOLXMOVvmhSY+PC90 fp15N1VaHsjtBnk3KSOrXR C2jPS5qQ5b GKWlCVsru9U3aSP8L0Ezda Wtgc5us3dhNLNcICozC96i hHQfi0J0ZUHvvUP2EBBkvG soCfJwsG43 Oyc+QITpjHwdy9GmApsea3 jjk0izfVt7IyliWKUmkqXn cVxmQUT4v6TzAt4iXYOhhV A4iVE2vP6z RtBnFfL2WIuwK070ShAqoC JbFjsqX70tP4DwjXN+PHRy Psa4JTVfuDsrJV6fE6VaJZ RpbmctbGVm hYrdMP4bCBExhhfiRJSfjU 2jTJSsB4j8PaJwZdK2JVrp G2RmDIQngkwmCu48dL1dSx TsPcX3ORiz P2XhdxH9TFRfyDRgHAziMY L9Y64bm0F3WNSlZOCfJHV7 dUA0jG8agKutvvncaUSrrU sgdmVydGlj PYirENydT958YEUrbKqnMp NvZGluZyBEYXRlOiAgMDEv MTEvMjAyNTwvdGQ+PHRkIH N0hCkfQBBl tORiNVvcAb0byCvaiXruKU 2yCNRaxediEYCqxY4gAAXa iTTktAlfVZ4gLGWcxydel3 26PkEgJKR1 KGNcwRWiH0SzjM1rAaOwYO YqMVWwK0JslGBbDSzoI157 ROxoXqQ9QXOfxtKjO5KjMM FsaWduOiB0 d6N3Ds9Fp6HpvdzcA5TodV KsGrTiYpvcSBk6W9FuXevi dHI+DS10EEIxJA12RLq9ST N0cKifOHkg GAWyM7PsfI8yUyHgZBMpLX RkOyc+PHRhYmxlIHdpZHRo FQpvOQLoIiJawOeeKJ0sMp 9yZGVyLWNv yFrbyWMsMhNqp3zaLTAcAU avEA8bdRltH2FizDZ1CQHn o2y5Cj16O72nH5YhcVG+PG UddVM4mDE4 tA3wZpYcFfW8EVvhK846Qh WjuPYpMvluf5kze0lddCi3 CqY0VNIspsOsyDvpOEK3e9 BoOw03I55n IHdpZHRoPSIxNSUiIHZhbG lyzh7eoF2pNy6+PGNvbCB3 tKK9rD3lOoBjMeI4FSntY2 49InRvcCIv Mcspv1can8pxfNv0DaKqPS KbjkTmtRunWRQ5w2WxHl00 T3VtiCquz0GmUku4eg03uA Xly4O4mSG5 K9CtGVLcjqaszBLlvMxhJT 2bAYZixkmjAKEndP5yJDCv O0h4ZgNtBsY4TPbiM8Igrt D7SGZseLQt IHWkiRDQgJ0muwiyi3qelq jfLzJpPUNlLKm1EFu6YJMt zZkwFfQpWYG8YxH4BGB2uG GqrQ0ruFmh wwawtQ6cRex+TAU6eCKflP VIHF8gCoflhFY+PHRkIHN0 qPggWXkrOMCitD8mZEPsK9 m8GyKkQxB8 VEmnJ2YtqsF8AMYrzWRiHE NeqOYIjP6ckskvb7dbkoqn UgRfRHNnAUj2UEy6SHNmvU duOiBsZWZ0 QoW1JVW1oCHbnD2shVykmv dtcN3rOld+QmlydGggRGF0 LBs9X2VaNen2PCEcxHxcJS 0ncGFkZGlu Ek2eaZwhuHraRR9aODJlzx lzf998HsCxk8ktOAEbaWPl JGivWBW3A90bt6T1JWYuJK BiCGH9fTT3 wF7crOyndtirpGPaaQtmuz SerOraOMzfYVurW067AOFu fGctEtRuLMi4N6DlJuc3HJ YzpGyqCV8h aGPkHPqbIk0kiYdyzTprBI 6qCUHamcsoc089XdFmk9ux GYXtdRVfOJyjYTH1G32ln5 Y5VZYlVIRx JQT0mKU0yC5oiUmwwnkpeI VmdDsgdmVydGljYWwtYWxp H125NYRugDdnDpXnrLg2B6 FtApq5HPVs vMjyPQ1ylGAdEPylHx7iqT qvwItdNU9tSRMavlgtg258 VbVxa9tlSIBvvUUyWDcnZT P0K70rm9M8 ZYJyRTCeSTJ9gYG4fQ1eeG lnbjogbGVmdDsgdmVydGlj RGudIXlkR188UWQplIgyIo BhdGllbnQg HHhxSAc4T8YbVtkxcIQ+PC 75DJEvCL94cGAgwJGqw9vv dAz2UnTuGUSqWER4iZkiJB ckb7McOKCo Z79ybLPvz6J4OYUjpNrukS DvHeDocIS9jI1tQGkabixk p7vxcjehNrzes0otxr05xL 13I50zIRdz ZHRoPSIzMCUiIHZhbGlnbj 4xwT8eIv5+JYTyoUD7aHI6 nY8hIKHcPoN9TMhbZ157Jm RvcCIvPjxj w5bqm3xxcIz6WlC6OQQmkz UqzHgvQFL6v8MfSx63Z78y IHdpZHRoPSIyMCUiIHZhbG kxds4yhM0r Ii8+PGQzkJZ8fBR6iY4rPb LyWkG7BJeyR236UtDgvVEc JsnrB49fJ8FkrXL+PHRyPj y8QRRjpWbl QB5cwRXuNJgvPb0hGOT0Zm VoVeDxGFpcB3EnDWBigxdu eeaxzUR3OFSzPTTjfO28Bo 9udDogMTBw hTWDdJ1fcyggz1xkkppsLk SxISPgGVr1JGh2SEWcmMtl EyXwTHL6QqJ8BBQ2sYJwwG 1hbGlnbjog sP0pW8WwXWDaibnlHm71jB 1hCyMjBrI9PXihXxb+SE9X QVJELCBTVEFDSUUgTEVFPC 82OX08xQYi j7X1mKR1W6AuFUZzkgsnjb cajBT2ANPbIPQrwG86gWXq KRtyFz3uk5J0w557NKJnOV AvxG23Sk0x eFawGTQiwEJKhJ3hdtphk3 clisvdSvRnXDEjLVw2GQs2 USGyvYbbPrPvARP3ArP9GV V6bZCkwB7x lSlaetijmQ2mWwy+MDcvMz JeVXr2IvshpIY+PHRkIHN0 uKaxRTykQMZjwZ5sHBKiC7 m8MxHaPgV6 PMxhO4NzZDAptonqEc33sY 2kYkSoVaZ6BBtfF2RuydS4 SNWjyTMaXBxpVIG0Z95wi1 J8QYPyBDHs VAO9wBW2oO5lrKlkxqkcuL VmdDsgdmVydGljYWwtYWxp P562HZScrXixJsJ7SRgfAJ CgII88UX32 iLHwi7Q6kTH9B0GlLAHpam dytntfmYP4GUGqSFDjoN01 tJQrZXjxXg0gb9L1m902NK JsKLIqzU83 Vv1pqZhxHEMleDUAcE0nak rwm0scytjyCwSwXGXmJDb2 AJi1XGUrdZzlUuMzRQN2Ld X5JRS9sWCg qF3qvJddqxaikQ0qMfe+Rk CTTEhAKD95WJ06hFLgv8O7 xLT5P8CzNBUrlyuxyonjsW P9JQEyUESi tD06tLAfFYmqWd5uv8U1q0 85ZSWgENGboK73Pw6pjLfi XGCzuJIGgO5lhmjoi6rczl ogIzAwMDAw DLj9EAt9VZUxcNelTxSbCN B3ZdD7LJW1uHHdhW1naJgo pmgreT9wLsu+TL0zurodsl O6LD87UU01 J2GtOwlhhFGarOU+PHRhYm xlIHdpZHRoPScxMDAlJyBz nQqiXW3bUn1zVUYgMLCftF xhcHNlOiBj g2tsQPGvTIpeFA4uoHlwO3 TjeBR9SPLlb7x2Iv61K74g R2WjvQY+MNMevTB3yIK1xF 3uKiPhWxZ5 PZirZ395VfEfhMZyZsezj5 xyj2vnmZs4TzEvRICtcyOb mKpaIWB7p6ZcEg07S15mJY dpZHRoPSIy FUTsSJAyeYidhz1bvC3fLa 8+YYEbsGC6lWR7nK7oAhPu RiC0DUdmD239HvMstUMjBj esR46iQ7Ed dXA+EXAxRwl9JFEkaSeyIJ 9zoFQyYCduNm8wQWI0TpHa BoVlKVnpG1EzCSMqixksnt nsfFQ0DRNx NPCyyI44Yn3txDtxGb4iUB PsZMU8PWGcgBAkM3PspV1f AoJtACVdELRpU9ZatJWeUQ wrK345GTnh OuB5KSDwdlIxY3TeVAFzcV afZmJ0j9C2Wj5CsNyncWXr NL6kXdJwNNl1F0CzIdg0XI SroEwzKP3d iGGnXKzwDz1woXaleRtcVR 7mUSDxbupab108HuYat3rg ONXceABaLYqhGMZ6O10sn4 P2TPQuJIJz DMW9gFF4xD2whHxfmwmuaW VmdDsgdmVydGljYWwtYWxp A690HOZqcNqlCmLCJvh2Y2 TwNzn2LPNp rWmlWY3bvQGgVUfvBr6ssR zlvZtiLQ9cCTOlavzyl742 DxXnq7gwOFLmkQKfBKslGI D1E36sd4N3 JDYtUBRcCJX5fLF9dQ2crL lnbjogbGVmdDsgdmVydGlj EMwkNVybZ456KVFxvBwjJr 2AYcw0C0Bh Ijk9HLJflTfsCO1fqPAaTA phTe8cmHowoKhwWA1qYMRu auiyy731UeWds1fzHGQpaS QgVGltZXM7 S84ol5N3IFRqDFRmRWC8aT X2zZ1ifDrlnhhzbMIboWkz rpDksNleSZdjFWxhL965SY RvcDsnPlBh eWVyOjwvdGQ+YP47ae14Q0 DaClegSbu2SIUwBEW6sWC9 fJ1fRPOpKWjsh1A7dBD7L0 MhdtBaqu2x b2x (more content not included)... [facility] Release of Informationon Release of Information [id number]#1.0 0OTGTIFF [facility] Consent Formson 06-12-2024 Consent Forms [id number]#[facility]on 06-11-2024 Auto Haines % 6 % Normal 06-24 [facility] Comment on above: Performed By: #### 1 [id number], [id number], [id number], [id number], [id number] ####[facility] (DEFAULT)[address] [place] [address] 19900 Baso Abs# 0.0 x10 Normal 0.0-0.2 [facility] Comment on above: Performed By: #### 1 [id number], 6455312, [id number], [id number], [id number] ####[facility] (DEFAULT)[address] [place] [address] 67447 Basophils/100 WBC (Bld) 0.7 % Normal 0.2-2.0 [facility] Comment on above: Performed By: #### 1 [id number], 5387863, [id number], [id number], [id number] ####[facility] (DEFAULT)[address] [place] [address] 66107 Eos Abs# 0.0 x10 Normal 0.0-0.4 [facility] Comment on above: Performed By: #### 1 [id number], 7231907, [id number], [id number], [id number] ####[facility] (DEFAULT)[address] [place] [address] 39683 Eosinophils/100 WBC (Bld) 0.8 % Low 0.9-4.0 [facility] Comment on above: Performed By: #### 1 3988415, 2280294, 1386506957, [id number], [id number] ####[facility] (DEFAULT)[address] [place] [address] 29639 Lymph Abs# 2.0 x10 Normal 1.3-2.9 [facility] Comment on above: Performed By: #### 1 [id number], 0389541, [id number], [id number], [id number] ####[facility] (DEFAULT)[address] [place] [address] 37004 Lymphocytes/100 WBC (Bld) 37 % Normal 14-48 [facility] Comment on above: Performed By: #### 1 [id number], 6874670, [id number], [id number], [id number] ####[facility] (DEFAULT)[address] [place] [address] Haines Abs# 0.3 x10 Normal 0.0-0.8 [facility] Comment on above: Performed By: #### 1 1442545, 9693625, [id number], [id number], [id number] ####[facility] (DEFAULT)[address] [place] [address] Neut Abs# 3.1 x10 Normal 1.5-9.2 [facility] Comment on above: Performed By: #### 1 [id number], 0978886, [id number], [id number], [id number] ####[facility] (DEFAULT)[address] [place] [address] 11798 Neutrophils/100 WBC (Bld) 56 % Normal 44-88 [facility] Comment on above: Performed By: #### 1 [id number], 3245810, [id number], [id number], [id number] ####[facility] (DEFAULT)[address] [place] [address] 13139 CBC w/ Auto Diffon 4 Man Diff? Auto Normal [facility] Comment on above: Performed By: #### 1 [id number], 3179853, [id number], [id number], [id number] ####[facility] (DEFAULT)[address] [place] [address] 72678 Erythrocyte distribution width (RBC) [Ratio] 20.0 % High 11.5-15.0 [facility] Comment on above: Performed By: #### 1 3936041, 4908879, [id number], [id number], [id number] ####[facility] (DEFAULT)[address] [place] [address] 87795 Hematocrit (Bld) [Volume fraction] 35.5 % Normal 33.7-40.4 [facility] Comment on above: Performed By: #### 1 [id number], 3543250, [id number], [id number], [id number] ####[facility] (DEFAULT)[address] [place] [address] 81991 Hemoglobin (Bld) [Mass/Vol] 11.3 g/dL Normal 11.3-15.9 [facility] Comment on above: Performed By: #### 1 3153077, 9133949, [id number], [id number], [id number] ####[facility] (DEFAULT)[address] [place] [address] 39808 MCH (RBC) [Entitic mass] 23 pg Low 24-34 [facility] Comment on above: Performed By: #### 1 3747094, 6676242, 3213435114, 8695629841, [id number] ####[facility] (DEFAULT)[address] [place] [address] 54302 MCHC (RBC) [Mass/Vol] 32 g/dL Normal 26-37 [facility] Comment on above: Performed By: #### 1 8199275, 7971064, 1545675781, 7925638125, [id number] ####[facility] (DEFAULT)[address] [place] [address] 51321 MCV (RBC) [Entitic vol] 73 fL Low 81-100 [facility] Comment on above: Performed By: #### 1 0480663, 1957565, 6474614259, [id number], [id number] ####[facility] (DEFAULT)[address] [place] [address] 36816 Platelet 432 x10 High 138-427 [facility] Comment on above: Performed By: #### 1 6856914, 8329245, [id number], 7562607969, [id number] ####[facility] (DEFAULT)[address] [place] [address] 90074 Platelet mean volume (Bld) [Entitic vol] 7.8 fL Normal 6.3-10.2 [facility] Comment on above: Performed By: #### 1 [id number], 2849458, [id number], 2056229657, [id number] ####[facility] (DEFAULT)[address] [place] [address] 00675 RBC 4.87 x10 Normal 3.70-5.30 [facility] Comment on above: Performed By: #### 1 2814664, 5695164, 1804676447, 4638803925, [id number] ####[facility] (DEFAULT)[address] [place] [address] 66805 WBC 5.5 x10 Normal 3.5-10.5 [facility] Comment on above: Performed By: #### 1 2223160, 1918595, 5207722353, 6347854301, [id number] ####[facility] (DEFAULT)[address] [place] [address] 00324 CMP Standardon 06-11-2024 eGFR Non AA >60 Invalid Interpretation Code [facility] Comment on above: Performed By: #### 1 6833872, 6552480, 2865982724, 7526961399, [id number] ####[facility] (DEFAULT)[address] [place] [address] 20224 eGFR AA >60 Invalid Interpretation Code [facility] Comment on above: Performed By: #### 1 7396450, 6358530, 4215171560, 7654151505, 4533916228 ####[facility] (DEFAULT)[address] [place] [address] 44355 Albumin [Mass/Vol] 4.2 g/dL Normal 3.5-5.0 [facility] Comment on above: Performed By: #### 1 1036711, 1671478, 9727282752, 2333928074, 7614422681 ####[facility] (DEFAULT)[address] [place] [address] 57831 Albumin/Globulin [Mass ratio] 1.0 {ratio} Low 1.4-2.6 [facility] Comment on above: Performed By: #### 1 0109360, 1445949, 5480184496, 1020896122, 3210093694 ####[facility] (DEFAULT)[address] [place] [address] 73653 Alk Phos 61 IU/L Normal 32-91 [facility] Comment on above: Performed By: #### 1 7055480, 9793392, 0350577421, 4393090360, 8572175242 ####[facility] (DEFAULT)[address] [place] [address] 48582 ALT [Catalytic activity/Vol] 28.0 U/L Normal 14.0-54.0 [facility] Comment on above: Performed By: #### 1 4991353, 3510119, 1549061088, 2584398093, 5503645518 ####[facility] (DEFAULT)[address] [place] [address] 12306 Anion gap [Moles/Vol] 12.4 mmol/L Normal 5.0-19.0 [facility] Comment on above: Performed By: #### 1 0556351, 1898205, 6206921239, 0150979339, 7398461613 ####[facility] (DEFAULT)[address] [place] [address] 20397 AST [Catalytic activity/Vol] 23 U/L Normal 15-41 [facility] Comment on above: Performed By: #### 1 9391994, 9070346, 9829727429, 3913978270, 3727484814 ####[facility] (DEFAULT)[address] [place] [address] 96924 Bili Total 0.8 mg/dL Normal 0.3-1.2 [facility] Comment on above: Performed By: #### 1 4770189, 0587570, 3154292842, 2662111358, 2607669661 ####[facility] (DEFAULT)[address] [place] [address] 94303 Calcium [Mass/Vol] 9.1 mg/dL Normal 8.9-10.3 [facility] Comment on above: Performed By: #### 1 2901938, 7665256, 7448433965, 1408009832, 7040623147 ####[facility] (DEFAULT)[address] [place] [address] 32880 Chloride [Moles/Vol] 106 mmol/L Normal 101-111 [facility] Comment on above: Performed By: #### 1 6884892, 8646866, 2559347425, 6216638702, 8525050586 ####[facility] (DEFAULT)[address] [place] [address] 33318 CO2 [Moles/Vol] 23 mmol/L Normal 21-32 [facility] Comment on above: Performed By: #### 1 2388174, 1609524, 2703658632, 4857642795, 6047369102 ####[facility] (DEFAULT)[address] [place] [address] 04965 Creatinine [Mass/Vol] 0.78 mg/dL Normal 0.60-1.30 [facility] Comment on above: Performed By: #### 1 5208070, 9465097, 1609720481, 9940373378, [id number] ####[facility] (DEFAULT)[address] [place] [address] 28133 Globulin (S) [Mass/Vol] 4.1 g/dL Normal 1.5-4.3 [facility] Comment on above: Performed By: #### 1 9570482, 9525145, 7713504305, 5722258942, 3504788102 ####[facility] (DEFAULT)[address] [place] [address] 00359 Glucose [Mass/Vol] 104.0 mg/dL Normal 74.0-118.0 [facility] Comment on above: Performed By: #### 1 6041687, 3459198, 3178895592, 7886656076, 2424515788 ####[facility] (DEFAULT)[address] [place] [address] 79340 Osmolality 274 mOsm/L Invalid Interpretation Code [facility] Comment on above: Performed By: #### 1 3172376, 9864852, 6979769988, 4067198035, 9029439340 ####[facility] (DEFAULT)[address] [place] [address] 88439 Potassium [Moles/Vol] 3.4 mmol/L Low 3.6-5.1 [facility] Comment on above: Performed By: #### 1 2572697, 6130897, 7950277976, 8397891248, 7636780363 ####[facility] (DEFAULT)[address] [place] [address] 66278 Protein [Mass/Vol] 8.3 g/dL High 6.5-8.1 [facility] Comment on above: Performed By: #### 1 9365319, 3809435, 1347134052, 1052348422, 7700938323 ####[facility] (DEFAULT)[address] [place] [address] 50800 Sodium [Moles/Vol] 138.0 mmol/L Normal 136.0-144.0 [facility] Comment on above: Performed By: #### 1 4979705, 6252003, 3333563399, 7148211350, 0201283155 ####[facility] (DEFAULT)[address] [place] [address] 69081 Urea nitrogen [Mass/Vol] 8 mg/dL Normal 8-26 [facility] Comment on above: Performed By: #### 1 5743062, 8606464, 8056829721, 5021703748, 9783231349 ####[facility] (DEFAULT)[address] [place] [address] 42517 Urea nitrogen/Creatinine [Mass ratio] 10.2 mg/mg Normal 4.6-16.2 [facility] Comment on above: Performed By: #### 1 9034790, 1712497, 3751355861, 7318037056, 4657746652 ####[facility] (DEFAULT)[address] [place] [address] 61336 Breakpoint Chem Normal [facility] Comment on above: Performed By: #### 1 4473218, 4853215, 2216575547, 0366406549, 3557785709 ####[facility] (DEFAULT)[address] [place] [address] 19675 ED Clinical Summaryon 2023 ED Clinical Summary [facility] Emergency Department [address] [place] [address] 52725 ED Clinical Summary PERSON INFORMATION Name: ANTONIA NOYOLA Age: 39 Years Sex: FEMALE : 1985 MRN: Acct#: Visit Reason: Abdominal pain; RT SIDE ABD PAIN Arrival: 06/11/2024 15:13:20 Discharge: 06/11/2024 18:32:00 LOS: 000 03:19 Check In: 06/11/2024 15:13:20 Checkout:06/11/2024 18:32:00 Address: [address] [place] [address] PCP: Provider, None PROVIDER INFORMATION Provider Role Assigned Unassigned Letty RN, Celestina Leos ED Nurse 06/11/2024 15:15:36 Lenka Padilla BLEACH SUPERVISOR ED PA 06/11/2024 15:17:46 Eran Hill MD [...] Home PATIENT EDUCATION INFORMATION Instructions: Ovarian Cyst, Lygy-sd-Zlxk Follow-Up: With: Address: When: Provider, None [address] [place] [address] Within 3 to 5 days Comments: Please call Dr. Wilson office and see if you can be seen sooner than June 18. CT scan shows a possible right ovarian cyst. This needs further evaluation from an FITNESS TECHNICIAN specialist. Continue taking medication as needed for pain. May take Tylenol 1000 mg every 6 hours as needed for pain. May take ibuprofen 600 mg every 8 hours as needed for pain. DIAGNOSIS: 1:Other ovarian cyst, right side Patient Understands: Yes - Patient/family/caregiv er verbalizes understanding of instructions given Comment: Normal [facility] ED Patient Summaryon 024 ED Patient Summary [facility] - Emergency Department [address] [place] [address] PATIENT DISCHARGE INSTRUCTIONS Patient Information Name: ANTONIA NOYOLA Age: 39 Years Date of : 1985 Reason For Visit: Abdominal pain; RT SIDE ABD PAIN Arrival Time: 06/11/2024 15:13:20 Primary Care Physician: Provider, None Attending Physician: Eran Hill MD Comment: Visit Diagnosis: Diagnoses This Visit Abdominal pain ([id number]) Other ovarian cyst, right side (N83.291) The Pharmacy at [facility] is open Tuesday through Tuesday from [...] alcohol and/or drug addiction problems; contact the [facility] 03/01 Crisis Hotline -text 4hope to [phone]. [...] any legal documents With: Address: When: Provider, None [address] [place] [address] Within 3 to 5 days Comments: Please call Dr. Wilson office and see if you can be seen sooner than June 18. CT scan shows a possible right ovarian cyst. This needs further evaluation from an FITNESS TECHNICIAN specialist. Continue taking medication as needed for pain. May take Tylenol 1000 mg every 6 hours as needed for pain. May take ibuprofen 600 mg every 8 hours as needed for pain. Medication Information: The exam and treatment you received today in the [facility] Emergency Department were for an urgent problem and are not intended as complete care. It is important for you to follow up with a doctor, nurse practitioner, or physician?s front end assistant for ongoing care. If your symptoms [...] so we can reach you if necessary. [facility] Emergency Department has provided you with a complete list of medications post discharge. Please inform your corporate communications associate/provider of your visit and for further instruction [...] ovarian syndrom (more content not included)... Normal [facility] UA w Culture if Ind Standard on 06-11-2024 Breakpoint UA [facility] Comment on above: Performed By: #### 1 [id number] ####[facility] (DEFAULT)[address] [place] [address] Color (U) Yellow [facility] Comment on above: Performed By: #### 1 [id number] ####[facility] (DEFAULT)[address] [place] [address] Culture? Not Indicated Invalid Interpretation Code [facility] Comment on above: Result Comment: Resu lt created by rule GL_MAGR_ADD_UA_CULT1 Performed By: #### 1 [id number] ####[facility] (DEFAULT)[address] [place] [address] Glucose (U) [Mass/Vol] Negative [facility] Comment on above: Performed By: #### 1 [id number] ####[facility] (DEFAULT)[address] [place] [address] Ketones Ql (U) Negative [facility] Comment on above: Performed By: #### 1 [id number] ####[facility] (DEFAULT)[address] [place] [address] Micro? Not Indicated Invalid Interpretation Code [facility] Comment on above: Result Comment: Resu lt created by rule GL_MAGR_ADD_UA_MICRO Performed By: #### 1 [id number] ####[facility] (DEFAULT)[address] [place] [address] UA Bilirubin Negative [facility] Comment on above: Performed By: #### 1 [id number] ####[facility] (DEFAULT)[address] [place] [address] 76609 UA Blood Negative Normal [facility] Comment on above: Performed By: #### 1 [id number] ####[facility] (DEFAULT)[address] [place] [address] 33182 UA Clarity CLEAR Normal CLEAR [facility] Comment on above: Performed By: #### 1 [id number] ####[facility] (DEFAULT)[address] [place] [address] 43383 UA Leuk Est Negative Normal NEGATIVE [facility] Comment on above: Performed By: #### 1 [id number] ####[facility] (DEFAULT)[address] [place] [address] 31939 UA Nitrite Negative Normal NEGATIVE [facility] Comment on above: Performed By: #### 1 [id number] ####[facility] (DEFAULT)[address] [place] [address] UA pH 6.5 Normal 5-8 [facility] Comment on above: Performed By: #### 1 [id number] ####[facility] (DEFAULT)[address] [place] [address] 03309 UA Protein Negative Normal NEGATIVE [facility] Comment on above: Performed By: #### 1 [id number] ####[facility] (DEFAULT)[address] [place] [address] 56063 UA Spec Grav 1.010 Normal 1.001-1.035 [facility] Comment on above: Performed By: #### 1 [id number] ####[facility] (DEFAULT)[address] [place] [address] 97054 UA Urobilinogen 0.2 mg/dL Normal 0.2-1.0 [facility] Comment on above: Performed By: #### 1 [id number] ####[facility] (DEFAULT)[address] [place] [address] 22033 Urine Source Clean Catch Normal [facility] Comment on above: Performed By: #### 1 [id number] ####[facility] (DEFAULT)[address] [place] [address] 03699 US Pelvis Non-OB Completeon 06-11-2024 US Pelvis [...] Rina Rushing MD 06/11/24 6:46 pm Technologist: [facility] US Transvaginalon 06-11-2024 US Transvaginal EXAM: [...] Rina Rushing MD 06/11/24 6:46 pm Technologist: [facility] CBC AND AUTO DIFFon 06-10-20 ABSOLUTE BASOPHIL 0.1 X10E9/L Normal 0.0-0.2 [facility] Comment on above: Performed By: #### C BCA, [facility], 21116-6 #### [facility] ([id number]) [address] [place] [address] ABSOLUTE NEUTROPHIL 3.8 X10E9/L Normal 1.5-6.6 [facility] Comment on above: Performed By: #### C BCA, CMP, 76836-6 #### [facility] ([id number]) [address], [address] [place] [address] Basophils/100 WBC (Bld) 0.9 % Normal [facility] Comment on above: Performed By: #### C BCA, CMP, 85018-7 #### [facility] ([id number]) [address], [address] [place] [address] Eosinophils (Bld) [#/Vol] 0.0 10*3/uL Normal 0.0-0.4 [facility] Comment on above: Performed By: #### C BCA, CMP, 63218-9 #### [facility] ([id number]) [address], [address] [place] [address] Eosinophils/100 WBC (Bld) 0.6 % Normal [facility] Comment on above: Performed By: #### C BCA, CMP, 16020-7 #### [facility] ([id number]) [address], [address] [place] [address] Erythrocyte distribution width (RBC) [Ratio] 20.0 % High 11.5-15.0 [facility] Comment on above: Performed By: #### C BCA, CMP, 67537-5 #### [facility] ([id number]) [address], [facility] [address] [place] [address] Hematocrit (Bld) [Volume fraction] 31.9 % Low 35-47 [facility] Comment on above: Performed By: #### C BCA, CMP, 67092-0 #### [facility] ([id number]) [address], [address] [place] [address] Hemoglobin (Bld) [Mass/Vol] 10.2 g/dL Low 11.7-15.5 [facility] Comment on above: Performed By: #### C BCA, CMP, 03954-8 #### [facility] ([id number]) [address] [address] [place] [address] Lymphocytes (Bld) [#/Vol] 3.1 10*3/uL Normal 1.0-3.5 [facility] Comment on above: Performed By: #### C BCA, CMP, 40346-3 #### [facility] ([id number]) [address] [address] [place] [address] Lymphocytes/100 WBC (Bld) 41.0 % Normal [facility] Comment on above: Performed By: #### Leila JOE, CMP, 92774-3 #### [facility] ([id number]) [address] [address] MCH (RBC) [Entitic mass] 22.8 pg Low 27-34 [facility] Comment on above: Performed By: #### Leila JOE, CMP, 44948-2 #### [facility] ([id number]) [address], [facility] [address] [place] [address] MCHC (RBC) [Mass/Vol] 31.9 g/dL Low 32-36 [facility] Comment on above: Performed By: #### Leila BCA, CMP, 81843-3 #### [facility] ([id number]) [address] [address] [place] [address] MCV (RBC) [Entitic vol] 72 fL Low 80-100 [facility] Comment on above: Performed By: #### Leila BCA, CMP, 78896-3 #### [facility] ([id number]) [address] [address] [place] [address] Monocytes (Bld) [#/Vol] 0.5 10*3/uL Normal 0-0.9 [facility] Comment on above: Performed By: #### Leila BCA, CMP, 04931-9 #### [facility] ([id number]) [address], [address] [place] [address] Monocytes/100 WBC (Bld) 6.6 % Normal [facility] Comment on above: Performed By: #### C HEATH, CMP, 11728-3 #### [facility] ([id number]) [address], [address] [place] [address] Neutrophils/100 WBC (Bld) 50.9 % Normal [facility] Comment on above: Performed By: #### Leila JOE, CMP, 72480-4 #### [facility] ([id number]) [address], [address] [place] [address] Platelet mean volume (Bld) [Entitic vol] 7.4 fL Normal 7-12 [facility] Comment on above: Performed By: #### Leila JOE, CMP, 85717-0 #### [facility] ([id number]) [address], [address] [place] [address] Platelets (Bld) [#/Vol] 415 10*3/uL Normal 150-450 [facility] Comment on above: Performed By: #### Leila JOE, CMP, 18922-1 #### [facility] ([id number]) [address], [address] [place] [address] RBC COUNT 4.46 X10E12/L Normal 3.80-5.20 [facility] Comment on above: Performed By: #### Leila JOE, CMP, 80259-0 #### [facility] ([id number]) [address], [address] [place] [address] WBC (Bld) [#/Vol] 7.5 10*3/uL Normal 4.0-11.0 [facility] Comment on above: Performed By: #### Leila BCA, CMP, 02073-5 #### [facility] ([id number]) [address], [address] [place] [address] CHLAMYDIA/GC BY PCRon 2023 CHLAMYDIA/GC BY PCR [...] are dependent on adequate specimen collection. Normal [facility] Comment on above: Performed By: #### C BCA, CMP #### [facility] ([id number]) [address], [address] [place] [address] COMPREHENSIVE METABOLIC PANE Van 06-10-2024 Albumin [Mass/Vol] 4.0 g/dL Normal 3.2-5.3 [facility] Comment on above: Performed By: #### C BCA, CMP, 15875-7 #### [facility] ([id number]) [address], [address] [place] [address] ALP [Catalytic activity/Vol] 65 U/L Normal 39-130 [facility] Comment on above: Performed By: #### C BCA, CMP, 25075-8 #### [facility] ([id number]) [address], [address] [place] [address] ALT [Catalytic activity/Vol] 32 U/L High 0-31 [facility] Comment on above: Performed By: #### C BCA, CMP, 67664-8 #### [facility] ([id number]) [address], [address] [place] [address] Anion gap [Moles/Vol] 11 mmol/L Normal 5-15 [facility] Comment on above: Performed By: #### C BCA, CMP, 38472-5 #### [facility] ([id number]) [address], [address] [place] [address] AST [Catalytic activity/Vol] 29 U/L Normal 0-41 [facility] Comment on above: Performed By: #### C BCA, CMP, 71009-3 #### [facility] ([id number]) [address], [address] [place] [address] Bilirubin [Mass/Vol] 0.6 mg/dL Normal 0.3-1.2 [facility] Comment on above: Performed By: #### C BCA, CMP, 62765-3 #### [facility] ([id number]) [address], [address] [place] [address] Calcium [Mass/Vol] 9.0 mg/dL Normal 8.5-10.5 [facility] Comment on above: Performed By: #### C BCA, CMP, 84372-5 #### [facility] ([id number]) [address], [address] [place] [address] Chloride [Moles/Vol] 105 mmol/L Normal 98-109 [facility] Comment on above: Performed By: #### C BCA, CMP, 36177-4 #### [facility] ([id number]) [address], [address] [place] [address] CO2 [Moles/Vol] 24 mmol/L Normal 22-32 [facility] Comment on above: Performed By: #### C BCA, CMP, 48534-7 #### [facility] ([id number]) [address], [address] [place] [address] Creatinine [Mass/Vol] 0.76 mg/dL Normal 0.40-1.00 [facility] Comment on above: Result Comment: METH OD TRACEABLE TO IDMS STANDARD Performed By: #### C BCA, CMP, 76357-4 #### [facility] ([id number]) [address], [address] [place] [address] eGFR (CKD-EPI) NON-RACE DEPENDENT >90 Normal >59 [facility] Comment on above: Result Comment: Reported eGFR is based on the CKD-EPI 2020 equation that does not use a race coefficient. Performed By: #### C BCA, CMP, 91501-2 #### [facility] ([id number]) [address], [address] [place] [address] Glucose [Mass/Vol] 119 mg/dL High 65-99 [facility] Comment on above: Performed By: #### C BCA, CMP, 68448-1 #### [facility] ([id number]) [address], [address] [place] [address] Potassium [Moles/Vol] 3.3 mmol/L Low 3.5-5.0 [facility] Comment on above: Performed By: #### C BCA, CMP, 15930-5 #### [facility] ([id number]) [address], [address] [place] [address] Protein [Mass/Vol] 7.2 g/dL Normal 6.0-8.0 [facility] Comment on above: Performed By: #### C BCA, CMP, 28918-6 #### [facility] ([id number]) [address], [address] [place] [address] Sodium [Moles/Vol] 140 mmol/L Normal 134-146 [facility] Comment on above: Performed By: #### C BCA, CMP, 11415-8 #### [facility] ([id number]) [address], [address] [place] [address] Urea nitrogen [Mass/Vol] 7 mg/dL Normal 5-23 [facility] Comment on above: Performed By: #### C BCA, CMP, 11116-0 #### [facility] ([id number]) [address], [address] [place] [address] Follitropin Qnon 06-10-2024 FOLLICLE STIM HORMONE 6.7 mIU/mL Normal [facility] Comment on above: Result Comment: NORMAL FEMALE Luteal 1.8-5.1 mIU/mL Follicular 3.8-8.8 mIU/mL Mid Cycle 4.5-22.5 mIU/mL Post Alexa 16.7-113.6 mIU/mL Performed By: #### C BCA, CMP, 98513-1 #### [facility] ([id number]) [address] [facility], [address] [place] [address] URN MACROSCOPIC NURon 2023 BILIRUBIN AUDREY Small Abnormal NEG [facility] Comment on above: Performed By: #### N UM #### [facility] ([id number]) [address] [place] [address] BLOOD/HGB AUDREY Negative Normal NEG [facility] Comment on above: Performed By: #### N UM #### [facility] ([id number]) [address] [place] [address] GLUCOSE AUDREY Negative Normal NEG [facility] Comment on above: Performed By: #### N UM #### [facility] ([id number]) [address] [place] [address] KETONES AUDREY 15 mg/dL Abnormal NEG [facility] Comment on above: Performed By: #### N UM #### [facility] ([id number]) [address] [place] [address] LEUKOCYTE ESTERASE AUDREY Negative Normal NEG Pr [facility] [place] Comment on above: Performed By: #### N UM #### [facility] ([id number]) [address] [place] [address] NITRITE AUDREY Negative Normal NEG [facility] Comment on above: Performed By: #### N UM #### [facility] ([id number]) [address] [place] [address] PH AUDREY 5.5 Normal 5.0-8.5 [facility] Comment on above: Performed By: #### N UM #### [facility] ([id number]) [address] [place] [address] PROTEIN AUDREY Trace Abnormal NEG [facility] Comment on above: Performed By: #### N UM #### [facility] ([id number]) [address] [place] [address] SPECIFIC GRAVITY AUDREY >=1.030 Normal 1.003-1.035 [facility] Comment on above: Performed By: #### N UM #### [facility] ([id number]) [address] [place] [address] UROBILINOGEN AUDREY 0.2 eu/dL Normal <1.1 [facility] Comment on above: Performed By: #### N UM #### [facility] ([id number]) [address] [place] [address] US PELVIC WITH TRANSVAGINALo n 06-10-2024 US [...] El MD on 06/10/2024 10:18 AM Normal [facility] Urine collection deviceon ER EXTRA URINES ER EXTRA URINE ORDER IN PROCESS Normal [facility] VAGINITIS PANEL PCRon 2023 VAGINITIS [...] clinical presentation to determine patient diagnosis. Normal [facility] Comment on above: Performed By: #### V PPCR #### [facility] ([id number]) [address] [place] [address], [address] [place] [address] CBC AND AUTO DIFFon 06-09-20 24 ABSOLUTE BASOPHIL 0.1 X10E9/L Normal 0.0-0.2 [facility] Comment on above: Performed By: #### 2 106-3 #### [facility] ([id number]) [address] [place] [address] ABSOLUTE NEUTROPHIL 2.7 X10E9/L Normal 1.5-6.6 [facility] Comment on above: Performed By: #### 2 106-3 #### [facility] ([id number]) [address] [place] [address] Basophils/100 WBC (Bld) 1.0 % Normal P [facility] Comment on above: Performed By: #### 2 106-3 #### [facility] ([id number]) [address] [place] [address]898 Eosinophils (Bld) [#/Vol] 0.1 10*3/uL Normal 0.0-0.4 [facility] Comment on above: Performed By: #### 2 106-3 #### [facility] ([id number]) [address] [place] [address] Eosinophils/100 WBC (Bld) 1.0 % Normal [facility] Comment on above: Performed By: #### 2 106-3 #### [facility] ([id number]) [address] [place] [address]56 Erythrocyte distribution width (RBC) [Ratio] 20.2 % High 11.5-15.0 [facility] Comment on above: Performed By: #### 2 106-3 #### [facility] ([id number]) [address] [place] [address] 20850 Hematocrit (Bld) [Volume fraction] 31.2 % Low 35-47 [facility] Comment on above: Performed By: #### 2 106-3 #### [facility] ([id number]) [address] [place] [address] 47437 Hemoglobin (Bld) [Mass/Vol] 10.2 g/dL Low 11.7-15.5 [facility] Comment on above: Performed By: #### 2 106-3 #### [facility] ([id number]) [address] [place] [address] 06765 Lymphocytes (Bld) [#/Vol] 2.6 10*3/uL Normal 1.0-3.5 [facility] Comment on above: Performed By: #### 2 106-3 #### [facility] ([id number]) [address] [place] [address] 79424 Lymphocytes/100 WBC (Bld) 44.6 % Normal [facility] Comment on above: Performed By: #### 2 106-3 #### [facility] ([id number]) [address] [place] [address] 74166 MCH (RBC) [Entitic mass] 23.5 pg Low 27-34 [facility] Comment on above: Performed By: #### 2 106-3 #### [facility] ([id number]) [address] [place] [address] 51250 MCHC (RBC) [Mass/Vol] 32.8 g/dL Normal 32-36 [facility] Comment on above: Performed By: #### 2 106-3 #### [facility] ([id number]) [address] [place] [address] 85070 MCV (RBC) [Entitic vol] 72 fL Low 80-100 [facility] Comment on above: Performed By: #### 2 106-3 #### [facility] ([id number]) [address] [place] [address] 78440 Monocytes (Bld) [#/Vol] 0.5 10*3/uL Normal 0-0.9 [facility] Comment on above: Performed By: #### 2 106-3 #### [facility] ([id number]) [address] [place] [address] 11685 Monocytes/100 WBC (Bld) 7.7 % Normal [facility] Comment on above: Performed By: #### 2 106-3 #### [facility] ([id number]) [address] [place] [address] 32809 Neutrophils/100 WBC (Bld) 45.7 % Normal [facility] Comment on above: Performed By: #### 2 106-3 #### [facility] ([id number]) [address] [place] [address] 28494 Platelet mean volume (Bld) [Entitic vol] 7.5 fL Normal 7-12 [facility] Comment on above: Performed By: #### 2 106-3 #### [facility] ([id number]) [address] [place] [address] 02168 Platelets (Bld) [#/Vol] 438 10*3/uL Normal 150-450 [facility] Comment on above: Performed By: #### 2 106-3 #### [facility] ([id number]) [address] [place] [address] 89280 RBC COUNT 4.35 X10E12/L Normal 3.80-5.20 [facility] Comment on above: Performed By: #### 2 106-3 #### [facility] ([id number]) [address] [place] [address] 34211 WBC (Bld) [#/Vol] 5.9 10*3/uL Normal 4.0-11.0 [facility] Comment on above: Performed By: #### 2 106-3 #### [facility] ([id number]) [address] [place] [address] 42743 COMPREHENSIVE METABOLIC PANE [facility] 06-09-2024 Albumin [Mass/Vol] 4.1 g/dL Normal 3.2-5.3 [facility] Comment on above: Performed By: #### 2 106-3 #### [facility] ([id number]) [address] [place] [address] 82180 ALP [Catalytic activity/Vol] 68 U/L Normal 39-130 [facility] Comment on above: Performed By: #### 2 106-3 #### [facility] ([id number]) [address] [place] [address] 90197 ALT [Catalytic activity/Vol] 36 U/L High 0-31 [facility] Comment on above: Performed By: #### 2 106-3 #### [facility] ([id number]) [address] [place] [address] 61917 Anion gap [Moles/Vol] 9 mmol/L Normal 5-15 [facility] Comment on above: Performed By: #### 2 106-3 #### [facility] ([id number]) [address] [place] [address] 62998 AST [Catalytic activity/Vol] 30 U/L Normal 0-41 [facility] Comment on above: Performed By: #### 2 106-3 #### [facility] ([id number]) [address] [place] [address] 76268 Bilirubin [Mass/Vol] 0.7 mg/dL Normal 0.3-1.2 [facility] Comment on above: Performed By: #### 2 106-3 #### [facility] ([id number]) [address] [place] [address] 93572 Calcium [Mass/Vol] 9.3 mg/dL Normal 8.5-10.5 [facility] Comment on above: Performed By: #### 2 106-3 #### [facility] ([id number]) [address] [place] [address] 47999 Chloride [Moles/Vol] 108 mmol/L Normal 98-109 [facility] Comment on above: Performed By: #### 2 106-3 #### [facility] ([id number]) [address] [place] [address] 43437 CO2 [Moles/Vol] 22 mmol/L Normal 22-32 [facility] Comment on above: Performed By: #### 2 106-3 #### [facility] ([id number]) [address] [place] [address] 97568 Creatinine [Mass/Vol] 0.75 mg/dL Normal 0.40-1.00 [facility] Comment on above: Result Comment: METH OD TRACEABLE TO IDMS STANDARD Performed By: #### 2 106-3 #### [facility] ([id number]) [address] [place] [address] 55695 eGFR (CKD-EPI) NON-RACE DEPENDENT >90 Normal >59 [facility] Comment on above: Result Comment: Reported eGFR is based on the CKD-EPI 2020 equation that does not use a race coefficient. Performed By: #### 2 106-3 #### [facility] ([id number]) [address] [place] [address] 69808 Glucose [Mass/Vol] 103 mg/dL High 65-99 [facility] Comment on above: Performed By: #### 2 106-3 #### [facility] ([id number]) [address] [place] [address] 27214 Potassium [Moles/Vol] 3.8 mmol/L Normal 3.5-5.0 [facility] Comment on above: Performed By: #### 2 106-3 #### [facility] ([id number]) [address] [place] [address] 54799 Protein [Mass/Vol] 7.5 g/dL Normal 6.0-8.0 [facility] Comment on above: Performed By: #### 2 106-3 #### [facility] ([id number]) [address] [place] [address] 51121 Sodium [Moles/Vol] 139 mmol/L Normal 134-146 [facility] Comment on above: Performed By: #### 2 106-3 #### [facility] ([id number]) [address] [place] [address] 29025 Urea nitrogen [Mass/Vol] 7 mg/dL Normal 5-23 [facility] Comment on above: Performed By: #### 2 106-3 #### [facility] ([id number]) [address] [place] [address] 07988 LIPASEon 06-09-2024 Lipase [Catalytic activity/Vol] 37 U/L Normal 17-40 [facility] Comment on above: Performed By: #### 2 106-3 #### [facility] ([id number]) [address] [place] [address] 99481 Lactate (P arely) [Moles/Vol]o n 06-09-2024 LACTATE W/REFLEX 1.2 mmol/L Normal 0.4-2.0 [facility] Comment on above: Result Comment: Result did not trigger repeat Lactate, re-order if needed. Performed By: #### 2 106-3 #### [facility] ([id number]) [address] [place] [address] 35769 URINE CULTUREon 06-09-2024 Bacteria identified Cx Nom (U) CULTURE RESULTS 10-50,000 ORGANISMS/mL NORMAL UROGENITAL RASHID Normal [facility] Comment on above: Performed By: #### 6 30-4 ####[facility] ([id number])[address] [facility] [address], [place] [address] URN MACROSCOPIC NURon 2023 BILIRUBIN AUDREY Negative Normal NEG [facility] Comment on above: Performed By: #### N UM ####[facility] ([id number])[address] [place] [address] [place] [address] BLOOD/HGB AUDREY Trace Abnormal NEG [facility] Comment on above: Performed By: #### N UM ####[facility] ([id number])[address] [place] [address], [place] [address] GLUCOSE AUDREY Negative Normal NEG [facility] Comment on above: Performed By: #### N UM ####[facility] ([id number])[address] [place] [address], [place] [address] KETONES AUDREY Negative Normal NEG [facility] Comment on above: Performed By: #### N UM ####[facility] ([id number])[address] [place] [address] 88038 LEUKOCYTE ESTERASE AUDREY Trace Abnormal NEG [facility] Comment on above: Performed By: #### N UM ####[facility] ([id number])[address] [place] [address] 10427 NITRITE AUDREY Negative Normal NEG [facility] Comment on above: Performed By: #### N UM ####[facility] ([id number])[address] [place] [address] 78817 PH AUDREY 6.5 Normal 5.0-8.5 [facility] Comment on above: Performed By: #### N UM ####[facility] ([id number])[address] [place] [address] 32425 PROTEIN AUDREY Negative Normal NEG [facility] Comment on above: Performed By: #### N UM ####[facility] ([id number])[address] [place] [address] 57431 SPECIFIC GRAVITY AUDREY 1.010 Normal 1.003-1.035 [facility] Comment on above: Performed By: #### N UM ####[facility] ([id number])[address] [place] [address] 66985 UROBILINOGEN AUDREY 1.0 eu/dL Normal <1.1 [facility] Comment on above: Performed By: #### N UM ####[facility] ([id number])[address] [place] [address] 21024 .Auto Diff 06-08-2024 Auto Haines % 5 % Normal 06-24 [facility] Comment on above: Performed By: #### 1 [id number], 8874835, 98399059, 1237641806, [id number] ####[facility] (DEFAULT)[address] [place] [address] 48878 Baso Abs# 0.1 x10 Normal 0.0-0.2 [facility] Comment on above: Performed By: #### 1 [id number], 6902439, 86931570, [id number], [id number] ####[facility] (DEFAULT)[address] [place] [address] 51771 Basophils/100 WBC (Bld) 1.0 % Normal 0.2-2.0 [facility] Comment on above: Performed By: #### 1 [id number], 9698645, 48678904, 9539568599, [id number] ####[facility] (DEFAULT)[address] [place] [address] 30541 Eos Abs# 0.0 x10 Normal 0.0-0.4 [facility] Comment on above: Performed By: #### 1 [id number], 7817259, 09614893, 2940023754, [id number] ####[facility] (DEFAULT)[address] [place] [address] 87143 Eosinophils/100 WBC (Bld) 0.4 % Low 0.9-4.0 [facility] Comment on above: Performed By: #### 1 [id number], 7382136, 23730443, 7517532067, 8439913098 ####[facility] (DEFAULT)[address] [place] [address] 14249 Lymph Abs# 1.7 x10 Normal 1.3-2.9 [facility] Comment on above: Performed By: #### 1 [id number], 6779778, 69615135, 3513868476, 9346512133 ####[facility] (DEFAULT)[address] [place] [address] 80112 Lymphocytes/100 WBC (Bld) 27 % Normal 14-48 [facility] Comment on above: Performed By: #### 1 [id number], 8191986, 13013610, 0171407622, [id number] ####[facility] (DEFAULT)[address] [place] [address] 95024 Haines Abs# 0.3 x10 Normal 0.0-0.8 [facility] Comment on above: Performed By: #### 1 [id number], 9715055, 04127955, 9132057162, [id number] ####[facility] (DEFAULT)[address] [place] [address] Neut Abs# 4.2 x10 Normal 1.5-9.2 [facility] Comment on above: Performed By: #### 1 [id number], 4591996, 44382717, 1007345431, 7464118669 ####[facility] (DEFAULT)[address] [place] [address] Neutrophils/100 WBC (Bld) 66 % Normal 44-88 [facility] Comment on above: Performed By: #### 1 [id number], 1156709, 42331799, 7453336233, 7895144423 ####[facility] (DEFAULT)[address] [place] [address] CBC w/ Auto Diffon 4 Erythrocyte distribution width (RBC) [Ratio] 20.2 % High 11.5-15.0 [facility] Comment on above: Performed By: #### 1 [id number], 5451621, 59219253, 4890606211, 7304945936 ####[facility] (DEFAULT)[address] [place] [address] Hematocrit (Bld) [Volume fraction] 34.5 % Normal 33.7-40.4 [facility] Comment on above: Performed By: #### 1 [id number], 0174575, 50375860, 1257333842, 1518614240 ####[facility] (DEFAULT)[address] [place] [address] Hemoglobin (Bld) [Mass/Vol] 10.9 g/dL Low 11.3-15.9 [facility] Comment on above: Performed By: #### 1 [id number], 2981766, 93290987, 6701648929, 8961441389 ####[facility] (DEFAULT)[address] [place] [address] Man Diff? Auto Invalid Interpretation Code [facility] Comment on above: Performed By: #### 1 [id number], 3044636, 81446748, 9233172402, 2129413594 ####[facility] (DEFAULT)[address] [place] [address] 58271 MCH (RBC) [Entitic mass] 23 pg Low 24-34 [facility] Comment on above: Performed By: #### 1 [id number], 7481849, 80697436, 8528455823, 9893888868 ####[facility] (DEFAULT)[address] [place] [address] MCHC (RBC) [Mass/Vol] 32 g/dL Normal 26-37 [facility] Comment on above: Performed By: #### 1 [id number], 3957682, 80196538, 8893510275, 5517044784 ####[facility] (DEFAULT)[address] [place] [address] MCV (RBC) [Entitic vol] 72 fL Low 81-100 [facility] Comment on above: Performed By: #### 1 667723654, 9718321, 65450591, 9315745167, 8225197641 ####[facility] (DEFAULT)[address] [place] [address] Platelet 457 x10 High 138-427 [facility] Comment on above: Performed By: #### 1 084374117, 5628438, 18388105, 3913452101, 3411167660 ####[facility] (DEFAULT)[address] [place] [address] 17575 Platelet mean volume (Bld) [Entitic vol] 7.5 fL Normal 6.3-10.2 [facility] Comment on above: Performed By: #### 1 [id number], 5914276, 89948424, 2861161170, 1875532568 ####[facility] (DEFAULT)[address] [place] [address] RBC 4.77 x10 Normal 3.70-5.30 [facility] Comment on above: Performed By: #### 1 661397731, 0848934, 51125704, 8773335170, 9441967507 ####[facility] (DEFAULT)[address] [place] [address] WBC 6.4 x10 Normal 3.5-10.5 [facility] Comment on above: Performed By: #### 1 956154660, 4241062, 75394110, 7259220246, 0338542872 ####[facility] (DEFAULT)[address] [place] [address] 88218 CMP Standardon 06-08-2024 eGFR Non AA >60 Invalid Interpretation Code [facility] Comment on above: Performed By: #### 1 [id number], 3192737, 51095855, 2239289328, 6531060448 ####[facility] (DEFAULT)[address] [place] [address] 99854 eGFR AA >60 Invalid Interpretation Code [facility] Comment on above: Performed By: #### 1 [id number], 1154833, 45956370, 1191798957, 2309919900 ####[facility] (DEFAULT)[address] [place] [address] Albumin [Mass/Vol] 4.3 g/dL Normal 3.5-5.0 [facility] Comment on above: Performed By: #### 1 712082210, 9913363, 21894395, 4717378599, 3687771464 ####[facility] (DEFAULT)[address] [place] [address] 83384 Albumin/Globulin [Mass ratio] 1.0 {ratio} Low 1.4-2.6 [facility] Comment on above: Performed By: #### 1 508602960, 2503667, 88387291, 3719571769, 8708156854 ####[facility] (DEFAULT)[address] [place] [address] 50211 Alk Phos 63 IU/L Normal 32-91 [facility] Comment on above: Performed By: #### 1 176804631, 1149116, 43611635, 6205673398, 1606389165 ####[facility] (DEFAULT)[address] [place] [address] 58759 ALT [Catalytic activity/Vol] 30.0 U/L Normal 14.0-54.0 [facility] Comment on above: Performed By: #### 1 293551747, 6036269, 99088153, 0316534189, 4877712756 ####[facility] (DEFAULT)[address] [place] [address] 55332 Anion gap [Moles/Vol] 12.9 mmol/L Normal 5.0-19.0 [facility] Comment on above: Performed By: #### 1 656959227, 7673143, 47959469, 7727195885, 9503996665 ####[facility] (DEFAULT)[address] [place] [address] 94160 AST [Catalytic activity/Vol] 22 U/L Normal 15-41 [facility] Comment on above: Performed By: #### 1 023734011, 4320218, 17703820, 2110538647, 1382923883 ####[facility] (DEFAULT)[address] [place] [address] 46301 Bili Total 0.5 mg/dL Normal 0.3-1.2 [facility] Comment on above: Performed By: #### 1 862418977, 7804152, 57051755, 8474598999, 2318524455 ####[facility] (DEFAULT)[address] [place] [address] 43280 Calcium [Mass/Vol] 9.3 mg/dL Normal 8.9-10.3 [facility] Comment on above: Performed By: #### 1 956166043, 5473485, 39856495, 4354417856, 9017843344 ####[facility] (DEFAULT)[address] [place] [address] 31671 Chloride [Moles/Vol] 106 mmol/L Normal 101-111 [facility] Comment on above: Performed By: #### 1 839531538, 1076264, 12005261, 3229050724, 7743418981 ####[facility] (DEFAULT)[address] [place] [address] 59962 CO2 [Moles/Vol] 22 mmol/L Normal 21-32 [facility] Comment on above: Performed By: #### 1 525622773, 9136940, 21789466, 7457962653, 7485179971 ####[facility] (DEFAULT)[address] [place] [address] 40588 Creatinine [Mass/Vol] 0.70 mg/dL Normal 0.60-1.30 [facility] Comment on above: Performed By: #### 1 335427672, 4881768, 75491503, 2087783297, 5932871924 ####[facility] (DEFAULT)[address] [place] [address] 59290 Globulin (S) [Mass/Vol] 4.0 g/dL Normal 1.5-4.3 [facility] Comment on above: Performed By: #### 1 [id number], 2793763, 97870543, 1210845642, 6728003776 ####[facility] (DEFAULT)[address] [place] [address] 54498 Glucose [Mass/Vol] 109.0 mg/dL Normal 74.0-118.0 [facility] Comment on above: Performed By: #### 1 [id number], 8516378, 88749504, 9020258146, 4801669032 ####[facility] (DEFAULT)[address] [place] [address] 88984 Osmolality 272 mOsm/L Invalid Interpretation Code [facility] Comment on above: Performed By: #### 1 [id number], [id number], [id number], [id number] ####[facility] (DEFAULT)[address] [place] [address] 28916 Potassium [Moles/Vol] 3.9 mmol/L Normal 3.6-5.1 [facility] Comment on above: Performed By: #### 1 [id number], [id number], [id number], [id number], [id number] ####[facility] (DEFAULT)[address] [place] [address]402 Protein [Mass/Vol] 8.3 g/dL High 6.5-8.1 [facility] Comment on above: Performed By: #### 1 [id number], [id number], [id number], [id number], [id number] ####[facility] (DEFAULT)[address] [place] [address] Sodium [Moles/Vol] 137.0 mmol/L Normal 136.0-144.0 [facility] Comment on above: Performed By: #### 1 [id number], [id number], [id number], [id number], [id number] ####[facility] (DEFAULT)[address] [place] [address] Urea nitrogen [Mass/Vol] 7 mg/dL Low 8-26 [facility] Comment on above: Performed By: #### 1 [id number], [id number], [id number], [id number], [id number] ####[facility] (DEFAULT)[address] [place] [address] 09884 Urea nitrogen/Creatinine [Mass ratio] 10.0 mg/mg Normal 4.6-16.2 [facility] Comment on above: Performed By: #### 1 [id number], [id number], [id number], [id number], [id number] ####[facility] (DEFAULT)[address] [place] [address] Abdomen/Pelvis w/ Contras ton 06-08-2024 CT [...] MD 06/08/24 9:36 pm Technologist: PREMA Miller [facility] ED Clinical Summaryon 2023 ED Clinical Summary [facility] - Emergency Department [address] [place], [place] [id number] ED Clinical Summary PERSON INFORMATION Name: ANTONIA NOYOLA Age: 39 Years Sex: FEMALE : 1985 MRN: Acct#: Visit Reason: Flank pain; Abdominal pain; ABDOMINAL PAIN Arrival: 06/08/2024 17:53:36 Discharge: 06/08/2024 22:16:00 LOS: 000 04:23 Check In: 06/08/2024 17:53:36 Checkout:06/08/2024 22:16:00 Address: [address] [place] [address] PCP: Provider, None PROVIDER INFORMATION Provider Role Assigned Unassigned Jasmyn Magana MD ED Provider 06/08/2024 18:36:34 Kendra Tobar GASATERIA ATTENDANT Nurse 06/08/2024 18:45:19 Radha Shabazz GASATERIA ATTENDANT Nurse 06/08/2024 19:29:52 Sandeep Corea MD ED [...] verbalizes understanding of instructions given Comment: Normal [facility] ED Patient Summaryon 024 ED Patient Summary [facility] - Emergency Department [address] [place], [place] [address] PATIENT DISCHARGE INSTRUCTIONS Patient Information Name: ANTONIA NOYOLA Age: 39 Years Date of : 1985 Reason For Visit: Flank pain; Abdominal pain; ABDOMINAL PAIN Arrival Time: 06/08/2024 17:53:36 Primary Care Physician: Provider, None Attending Physician: Jasmyn Magana MD Comment: Visit Diagnosis: Diagnoses This Visit Abdominal pain ([id number]) Abdominal pain (R10.9) Abdominal pain in female patient (R10.9) Flank pain ([id number]) The Pharmacy at [facility] is open Tuesday through Tuesday from [...] alcohol and/or drug addiction problems; contact the [facility] 03/01 Crisis Hotline -Text [phone] lp [phone]. If you received any narcotics, sedation, or [...] and treatment you received today in the [facility] Emergency Department were for an urgent problem and are not intended as complete care. It is important for you to follow up with a doctor, nurse practitioner, or physician?s front end assistant for ongoing care. If your symptoms [...] so we can reach you if necessary. [facility] Emergency Department has provided you with a complete list of medications post discharge. Please inform your corporate communications associate/provider of your visit and for further instruction [...] found Patient Education Endometriosis Follow-up with your FITNESS TECHNICIAN to review this emergency department visit and [...] during menstrual (more content not included)... Normal [facility] Extra Redon 06-08-2024 Tube Collected Yes Invalid Interpretation Code [facility] Comment on above: Performed By: #### 1 [id number], [id number], [id number], [id number], [id number] ####[facility] (DEFAULT)[address] [place] [address] 02780 Test Urine 1on U Preg Negative Normal [facility] Comment on above: Performed By: #### 1 [id number], [id number] #### [facility] (DEFAULT) [address] [place] [address] 84888 U Preg Internal Control Pass [facility] Comment on above: Performed By: #### 1 [id number], [id number] #### [facility] (DEFAULT) [address] [place] [address] 07240 Progress Note - Nurseon 05-14 Progress Note - Nurse This nurse verifyvrose d with patient that she had a [...] on: 06/08/2024 22:16 EST] Radha Shabazz RN [facility] UA w Culture if Ind Standard on 06-08-2024 Breakpoint UA [facility] Comment on above: Performed By: #### 1 [id number], [id number] #### [facility] (DEFAULT) [address] [place] [address] Color (U) Straw [facility] Comment on above: Performed By: #### 1 [id number], [id number] #### [facility] (DEFAULT) [address] [place] [address] Culture? Not Indicated Invalid Interpretation Code [facility] Comment on above: Result Comment: Resu lt created by rule GL_MAGR_ADD_UA_CULT1 Result created by rule GL_MAGR_ADD_UA_CULT1 Performed By: #### 1 [id number], [id number] #### [facility] (DEFAULT) [address] [place] [address] Glucose (U) [Mass/Vol] Negative [facility] Comment on above: Performed By: #### 1 [id number], [id number] #### [facility] (DEFAULT) [address] [place] [address] Ketones Ql (U) Negative [facility] Comment on above: Performed By: #### 1 [id number], [id number] #### [facility] (DEFAULT) [address] [place] [address] 14088 Micro? Not Indicated Invalid Interpretation Code [facility] Comment on above: Result Comment: Resu lt created by rule GL_MAGR_ADD_UA_MICRO Result created by rule GL_MAGR_ADD_UA_MICRO Performed By: #### 1 [id number], [id number] #### [facility] (DEFAULT) [address] [place] [address] UA Bilirubin Negative [facility] Comment on above: Performed By: #### 1 [id number], [id number] #### [facility] (DEFAULT) [address] [place] [address] 48677 UA Blood Negative Normal NEGATIVE [facility] Comment on above: Performed By: #### 1 [id number], [id number] #### [facility] (DEFAULT) [address] [place] [address] 08639 UA Clarity CLEAR Normal CLEAR [facility] Comment on above: Performed By: #### 1 [id number], [id number] #### [facility] (DEFAULT) [address] [place] [address] 70387 UA Leuk Est Negative Normal NEGATIVE [facility] Comment on above: Performed By: #### 1 [id number], [id number] #### [facility] (DEFAULT) [address] [place] [address] 74253 UA Nitrite Negative Normal NEGATIVE [facility] Comment on above: Performed By: #### 1 [id number], [id number] #### [facility] (DEFAULT) [address] [place] [address] 69984 UA pH 7.0 Normal 5-8 [facility] Comment on above: Performed By: #### 1 [id number], [id number] #### [facility] (DEFAULT) [address] [place] [address] 43826 UA Protein Negative Normal NEGATIVE [facility] Comment on above: Performed By: #### 1 [id number], [id number] #### [facility] (DEFAULT) [address] [place] [address] 99189 UA Spec Grav <=1.005 Normal 1.001-1.035 [facility] Comment on above: Performed By: #### 1 [id number], [id number] #### [facility] (DEFAULT) [address] [place] [address] 24384 UA Urobilinogen 0.2 mg/dL Normal 0.2-1.0 [facility] Comment on above: Performed By: #### 1 [id number], [id number] #### [facility] (DEFAULT) [address] [place] [address] 60119 Urine Source Clean Catch Normal [facility] Comment on above: Performed By: #### 1 [id number], [id number] #### [facility] (DEFAULT) [address] [place] [address] CBC AND AUTO DIFFon 12-24-20 24 ABSOLUTE BASOPHIL 0.1 X10E9/L Normal 0.0-0.2 [facility] Comment on above: Performed By: #### 2 106-3 #### [facility] ([id number]) [address] [place] [address] 96906 ABSOLUTE NEUTROPHIL 4.9 X10E9/L Normal 1.5-6.6 [facility] Comment on above: Performed By: #### 2 106-3 #### [facility] ([id number]) [address] [place] [address] 99984 Basophils/100 WBC (Bld) 0.9 % Normal [facility] Comment on above: Performed By: #### 2 106-3 #### [facility] ([id number]) [address] [place] [address] 89347 Eosinophils (Bld) [#/Vol] 0.1 10*3/uL Normal 0.0-0.4 [facility] Comment on above: Performed By: #### 2 106-3 #### [facility] ([id number]) [address] [place] [address] 96982 Eosinophils/100 WBC (Bld) 0.7 % Normal [facility] Comment on above: Performed By: #### 2 106-3 #### [facility] ([id number]) [address] [place] [address] 27338 Erythrocyte distribution width (RBC) [Ratio] 19.6 % High 11.5-15.0 [facility] Comment on above: Performed By: #### 2 106-3 #### [facility] ([id number]) [address] [place] [address] 81460 Hematocrit (Bld) [Volume fraction] 35.6 % Normal 35-47 [facility] Comment on above: Performed By: #### 2 106-3 #### [facility] ([id number]) [address] [place] [address] 42226 Hemoglobin (Bld) [Mass/Vol] 11.2 g/dL Low 11.7-15.5 [facility] Comment on above: Performed By: #### 2 106-3 #### [facility] ([id number]) [address] [place] [address] 59861 Lymphocytes (Bld) [#/Vol] 2.5 10*3/uL Normal 1.0-3.5 [facility] Comment on above: Performed By: #### 2 106-3 #### [facility] ([id number]) [address] [place] [address] 71517 Lymphocytes/100 WBC (Bld) 31.5 % Normal [facility] Comment on above: Performed By: #### 2 106-3 #### [facility] ([id number]) [address] [place] [address] 31505 MCH (RBC) [Entitic mass] 22.7 pg Low 27-34 [facility] Comment on above: Performed By: #### 2 106-3 #### [facility] ([id number]) [address] [place] [address] 14777 MCHC (RBC) [Mass/Vol] 31.4 g/dL Low 32-36 [facility] Comment on above: Performed By: #### 2 106-3 #### [facility] ([id number]) [address] [place] [address] 81202 MCV (RBC) [Entitic vol] 72 fL Low 80-100 P [facility] Comment on above: Performed By: #### 2 106-3 #### [facility] ([id number]) [address] [place] [address] 42215 Monocytes (Bld) [#/Vol] 0.4 10*3/uL Normal 0-0.9 [facility] Comment on above: Performed By: #### 2 106-3 #### [facility] ([id number]) [address] [place] [address] 18616 Monocytes/100 WBC (Bld) 5.4 % Normal P [facility] Comment on above: Performed By: #### 2 106-3 #### [facility] ([id number]) [address] [place] [address] 01330 Neutrophils/100 WBC (Bld) 61.5 % Normal [facility] Comment on above: Performed By: #### 2 106-3 #### [facility] ([id number]) [address] [place] [address] 75049 Platelet mean volume (Bld) [Entitic vol] 7.7 fL Normal 7-12 [facility] Comment on above: Performed By: #### 2 106-3 #### [facility] ([id number]) [address] [place] [address] 86349 Platelets (Bld) [#/Vol] 451 10*3/uL High 150-450 [facility] Comment on above: Performed By: #### 2 106-3 #### [facility] ([id number]) [address] [place] [address] 46025 RBC COUNT 4.93 X10E12/L Normal 3.80-5.20 [facility] Comment on above: Performed By: #### 2 106-3 #### [facility] ([id number]) [address] [place] [address] 97236 WBC (Bld) [#/Vol] 8.0 10*3/uL Normal 4.0-11.0 [facility] Comment on above: Performed By: #### 2 106-3 #### [facility] ([id number]) [address] [place] [address] [place] [address] COMPREHENSIVE METABOLIC PANE Van 06-05-2024 Albumin [Mass/Vol] 4.6 g/dL Normal 3.2-5.3 [facility] Comment on above: Performed By: #### 2 106-3 #### [facility] ([id number]) [address] [place] [address] 98632 ALP [Catalytic activity/Vol] 67 U/L Normal 39-130 [facility] Comment on above: Performed By: #### 2 106-3 #### [facility] ([id number]) [address] [place] [address] 20632 ALT [Catalytic activity/Vol] 14 U/L Normal 0-31 [facility] Comment on above: Performed By: #### 2 106-3 #### [facility] ([id number]) [address] [place] [address] 21059 Anion gap [Moles/Vol] 13 mmol/L Normal 5-15 [facility] Comment on above: Performed By: #### 2 106-3 #### [facility] ([id number]) [address] [place] [address] 28914 AST [Catalytic activity/Vol] 19 U/L Normal 0-41 [facility] Comment on above: Performed By: #### 2 106-3 #### [facility] ([id number]) [address] [place] [address] 72728 Bilirubin [Mass/Vol] 0.3 mg/dL Normal 0.3-1.2 [facility] Comment on above: Performed By: #### 2 106-3 #### [facility] ([id number]) [address] [place] [address] 76612 Calcium [Mass/Vol] 10.0 mg/dL Normal 8.5-10.5 [facility] Comment on above: Performed By: #### 2 106-3 #### [facility] ([id number]) [address] [place] [address] 89790 Chloride [Moles/Vol] 105 mmol/L Normal 98-109 [facility] Comment on above: Performed By: #### 2 106-3 #### [facility] ([id number]) [address] [place] [address] 25428 CO2 [Moles/Vol] 21 mmol/L Low 22-32 [facility] Comment on above: Performed By: #### 2 106-3 #### [facility] ([id number]) [address] [place] [address] 91713 Creatinine [Mass/Vol] 0.97 mg/dL Normal 0.40-1.00 [facility] Comment on above: Result Comment: METH OD TRACEABLE TO IDMS STANDARD Performed By: #### 2 106-3 #### [facility] ([id number]) [address] [place] [address] 40612 GFR/1.73 sq M.predicted among non-blacks MDRD (S/P/Bld) [Vol rate/Area] 77 mL/min/{1.73_m2} Normal >59 [facility] Comment on above: Result Comment: Reported eGFR is based on the CKD-EPI 2020 equation that does not use a race coefficient. Performed By: #### 2 106-3 #### [facility] ([id number]) [address] [place] [address] 39881 Glucose [Mass/Vol] 98 mg/dL Normal 65-99 [facility] Comment on above: Performed By: #### 2 106-3 #### [facility] ([id number]) [address] [place] [address] 04768 Potassium [Moles/Vol] 3.7 mmol/L Normal 3.5-5.0 [facility] Comment on above: Performed By: #### 2 106-3 #### [facility] ([id number]) [address] [place] [address] Protein [Mass/Vol] 8.3 g/dL High 6.0-8.0 [facility] Comment on above: Performed By: #### 2 106-3 #### [facility] ([id number]) [address] [place] [address] Sodium [Moles/Vol] 139 mmol/L Normal 134-146 [facility] Comment on above: Performed By: #### 2 106-3 #### [facility] ([id number]) [address] [place] [address] 35603 Urea nitrogen [Mass/Vol] 11 mg/dL Normal 5-23 [facility] Comment on above: Performed By: #### 2 106-3 #### [facility] ([id number]) [address] [place] [address] ABDOMEN AND PELVIS W CONT on [...] Lang MD on 06/05/2024 8:30 PM Normal [facility] HCG ( test) Ql (U)o n 06-05-2024 Beta HCG ( test) Ql (U) Negative Normal NEG [facility] Comment on above: Performed By: #### 2 106-3 #### [facility] ([id number]) [address] [place] [address] 29033 LIPASEon 06-05-2024 Lipase [Catalytic activity/Vol] 44 U/L High 17-40 [facility] Comment on above: Performed By: #### 2 106-3 #### [facility] ([id number]) [address] [place] [address] 71100 URN MACROSCOPIC NURon 2023 BILIRUBIN AUDREY Negative Normal NEG [facility] Comment on above: Performed By: #### 2 106-3 #### [facility] ([id number]) [address] [place] [address] 15182 BLOOD/HGB AUDREY Negative Normal NEG [facility] Comment on above: Performed By: #### 2 106-3 #### [facility] ([id number]) [address] [place] [address] 39880 GLUCOSE AUDREY Negative Normal NEG [facility] Comment on above: Performed By: #### 2 106-3 #### [facility] ([id number]) [address] [place] [address] 81169 KETONES AUDREY Negative Normal NEG [facility] Comment on above: Performed By: #### 2 106-3 #### [facility] ([id number]) [address] [place] [address] 94096 LEUKOCYTE ESTERASE AUDREY Negative Normal NEG [facility] Comment on above: Performed By: #### 2 106-3 #### [facility] ([id number]) [address] [place] [address] 87442 NITRITE AUDREY Negative Normal NEG [facility] Comment on above: Performed By: #### 2 106-3 #### [facility] ([id number]) [address] [place] [address] 72522 PH AUDREY 7.0 Normal 5.0-8.5 [facility] Comment on above: Performed By: #### 2 106-3 #### [facility] ([id number]) [address] [place] [address] 59842 PROTEIN AUDREY Negative Normal NEG [facility] Comment on above: Performed By: #### 2 106-3 #### [facility] ([id number]) [address] [place] [address] 33447 SPECIFIC GRAVITY AUDREY 1.015 Normal 1.003-1.035 [facility] Comment on above: Performed By: #### 2 106-3 #### [facility] ([id number]) [address] [place] [address] 35817 UROBILINOGEN AUDREY 1.0 eu/dL Normal <1.1 [facility] Comment on above: Performed By: #### 2 106-3 #### [facility] ([id number]) [address] [place] [address] 61533 CBC with Diffon 05-28-2024 Morphology Edson (Bld) [Interp] SLIGHT Normal [facility] Comment on above: Result Comment: MICR OCYTOSIS Performed By: #### C P, CDP #### [facility] [address] [place] [address] International Logistics Coordinator: Jenniefr Freire MD Urinalysis, Routineon 2023 Bilirubin, SemiQt,Ur Negative Normal NEG [facility] Comment on above: Performed By: #### MARCELA Khan #### [facility] [address] [place] [address] International Logistics Coordinator: Jennifer Freire MD Blood, Urine TRACE Abnormal NEG [facility] Comment on above: Performed By: #### U A, UMICAO #### [facility] [address] [place] [address] International Logistics Coordinator: Jennifer Freire MD Clarity (U) Clear Normal CLEAR [facility] Comment on above: Performed By: #### U A, UMICAO #### [facility] [address] [place] [address] International Logistics Coordinator: Jennifer Freire MD Color (U) Yellow Normal YEL [facility] Comment on above: Performed By: #### U A, UMICAO #### [facility] [address] [place] [address] International Logistics Coordinator: Jennifer Freire MD Comment Normal [facility] Comment on above: Performed By: #### U A, UMICAO #### [facility] [address] [place] [address] International Logistics Coordinator: Jennifer Freire MD Glucose Ql (U) Negative Normal NEG [facility] Comment on above: Performed By: #### U A, UMICAO #### [facility] [address] [place] [address] International Logistics Coordinator: Jennifer Freire MD Ketones Ql (U) Negative Normal NEG [facility] Comment on above: Performed By: #### U A, UMICAO #### [facility] [address] [place] [address] International Logistics Coordinator: Jennifer Freire MD Leukocyte esterase Test strip Ql (U) Negative Normal NEG [facility] Comment on above: Performed By: #### U A, UMICAO #### [facility] [address] [place], [place] [id number] International Logistics Coordinator: Jennifer Freire MD Nitrite,Ur Negative Normal NEG [facility] Comment on above: Performed By: #### U A, UMICAO #### [facility] [address] [place] [id number] International Logistics Coordinator: Jennifer Freire MD PH,Ur 7.0 Normal 5.0-8.0 [facility] Comment on above: Performed By: #### U A, UMICAO #### [facility] [address] [place] [id number] International Logistics Coordinator: Jennifer Freire MD Protein Ql (U) Negative Normal NEG [facility] Comment on above: Performed By: #### U A, UMICAO #### [facility] [address] [place] [address] International Logistics Coordinator: Jennifer Freire MD Spec. Roscoe,Ur 1.010 Normal 1.005-1.030 [facility] Comment on above: Performed By: #### U A, UMICAO #### [facility] [address] [place] [address] International Logistics Coordinator: Jennifer Freire MD Urobilinogen,Ur Normal Normal 0.0-1.0 [facility] Comment on above: Performed By: #### U A, UMICAO #### [facility] [address] [place] [address] International Logistics Coordinator: Jennifer Freire MD Urinalysis,Microon 4 ----- Normal [facility] Comment on above: Performed By: #### U A, UMICAO #### [facility] [address] [place] [id number] International Logistics Coordinator: Jennifer Freire MD Urine RBC's 2 TO 5 Normal 0-2 [facility] Comment on above: Performed By: #### U A, UMICAO #### [facility] [address] [place] [address] International Logistics Coordinator: Jennifer Freire MD Urine WBC's None Seen Normal 0 [facility] Comment on above: Performed By: #### U MARCELA Mireles #### [facility] [address] [place], [place] [id number] International Logistics Coordinator: Jennifer Freire MD CBC with Diffon 05-27-2024 Abs. Basophil 0.03 k/uL Normal 0.00-0.20 [facility] Comment on above: Performed By: #### C P, CDP #### [facility] [address] [place] [id number] International Logistics Coordinator: Jennifer Freire MD Abs.Imm.Granulocyte 0.01 k/uL Normal 0.00-0.30 [facility] Comment on above: Performed By: #### C P, CDP #### [facility] [address] [id number] [employer] Coordinator: Jennifer Freire MD Abs.Neutrophil (Seg) 4.33 k/uL Normal 2.5-7.0 [facility] Comment on above: Performed By: #### C P, CDP #### [facility] [address] [place] [address] [employer] Coordinator: Jennifer Freire MD Basophils/100 WBC (Bld) 0 % Normal 0-2 M [facility] Comment on above: Performed By: #### C P, CDP #### [facility] [address] [place] [address] [employer] Coordinator: Jennifer Freire MD Eosinophils (Bld) [#/Vol] 0.08 10*3/uL Normal 0.00-0.40 [facility] Comment on above: Performed By: #### C P, CDP #### [facility] [address] [place] [address] [employer] Coordinator: Jennifer Freire MD Eosinophils/100 WBC (Bld) 1 % Normal 0-5 [facility] Comment on above: Performed By: #### C P, CDP #### [facility] [address] [place] [address] [employer] Coordinator: Jennifer Freire MD Erythrocyte distribution width (RBC) [Ratio] 17.2 % High 12.1-15.2 [facility] Comment on above: Performed By: #### C P, CDP #### [facility] [address] [place] [address] [employer] Coordinator: Jennifer Freire MD Hematocrit (Bld) [Volume fraction] 36.4 % Normal 36.0-46.0 [facility] Comment on above: Performed By: #### C P, CDP #### [facility] [address] [place] [address] [employer] Coordinator: Jennifer Freire MD Hemoglobin (Bld) [Mass/Vol] 11.4 g/dL Low 12.0-16.0 [facility] Comment on above: Performed By: #### C P, CDP #### [facility] [address] [place] [address] [employer] Coordinator: Jennifer Freire MD Immature granulocytes/100 WBC (Bld) 0 % Normal 0-5 [facility] Comment on above: Performed By: #### C P, CDP #### [facility] [address] [place], [place] [id number] [employer] Coordinator: Jennifer Freire MD Lymphocytes (Bld) [#/Vol] 3.24 10*3/uL Normal 1.00-4.80 [facility] Comment on above: Performed By: #### C P, CDP #### [facility] [address] [place], [place] [id number] [employer] Coordinator: Jennifer Freire MD Lymphocytes/100 WBC (Bld) 40 % Normal 15-40 [facility] Comment on above: Performed By: #### C P, CDP #### [facility] [address] [place] [address] [employer] Coordinator: Jennifer Freire MD MCH (RBC) [Entitic mass] 22.6 pg Low 26.0-34.0 [facility] Comment on above: Performed By: #### C P, CDP #### [facility] [address] [id number] [employer] Coordinator: Jennifer Freire MD MCHC (RBC) [Mass/Vol] 31.3 g/dL Normal 31.0-37.0 [facility] Comment on above: Performed By: #### C P, CDP #### [facility] [address] [place] [address] [employer] Coordinator: Jennifer Freire MD MCV (RBC) [Entitic vol] 72.2 fL Low 80.0-100.0 M [facility] Comment on above: Performed By: #### C P, CDP #### [facility] [address] [place] [address] [employer] Coordinator: Jennifer Freire MD Monocytes (Bld) [#/Vol] 0.51 10*3/uL Normal 0.00-1.00 [facility] Comment on above: Performed By: #### C P, CDP #### [facility] [address] [place] [address] [employer] Coordinator: Jennifer Freire MD Monocytes/100 WBC (Bld) 6 % Normal 4-8 M [facility] Comment on above: Performed By: #### C P, CDP #### [facility] [address] [place] [address] [employer] Coordinator: Jennifer Freire MD Neutrophil (Seg) 53 % Normal 47-75 [facility] Comment on above: Performed By: #### C P, CDP #### [facility] [address] [place], [place] [id number] [employer] Coordinator: Jennifer Freire MD Platelet mean volume (Bld) [Entitic vol] 9.3 fL Normal 6.0-12.0 [facility] Comment on above: Performed By: #### C P, CDP #### [facility] [address] [place], [place] [id number] ([phone]) [employer] Coordinator: Jennifer Freire MD Platelets (Bld) [#/Vol] 583 10*3/uL High 140-450 [facility] Comment on above: Performed By: #### C P, CDP #### [facility] [address] [place], [place] [id number] ([phone]) [employer] Coordinator: Jennifer Freire MD RBC (Bld) [#/Vol] 5.04 10*6/uL Normal 4.00-5.20 [facility] Comment on above: Performed By: #### C P, CDP #### [facility] [address] [place], [place] [id number] [employer] Coordinator: Jennifer Freire MD WBC (Bld) [#/Vol] 8.2 10*3/uL Normal 3.5-11.0 [facility] Comment on above: Performed By: #### C P, CDP #### [facility] [address] [place], [place] [id number] [employer] Coordinator: Jennifer Freire MD Comp Metabolic Profon 2023 Albumin [Mass/Vol] 4.7 g/dL Normal 3.5-5.2 [facility] Comment on above: Performed By: #### C P, CDP #### [facility] [address] [place], [place] [id number] [employer] Coordinator: Jennifer Freire MD Alkaline Phos 92 U/L Normal 35-104 [facility] Comment on above: Performed By: #### C P, CDP #### [facility] [address] [place], [place] [id number] [employer] Coordinator: Jennifer Freire MD ALT [Catalytic activity/Vol] 16 U/L Normal 5-33 [facility] Comment on above: Performed By: #### C P, CDP #### [facility] [address] [place], [place] [id number] [employer] Coordinator: Jennifer Freire MD Anion gap [Moles/Vol] 14 mmol/L Normal 9-17 [facility] Comment on above: Performed By: #### C P, CDP #### [facility] [address] [place], [place] [id number] [employer] Coordinator: Jennifer Freire MD AST [Catalytic activity/Vol] 17 U/L Normal <32 [facility] Comment on above: Performed By: #### C P, CDP #### [facility] [address] [place], [place] [id number] [employer] Coordinator: Jennifer Freire MD Bilirubin [Mass/Vol] 0.2 mg/dL Low 0.3-1.2 [facility] Comment on above: Performed By: #### C P, CDP #### [facility] [address] [place] [address] [employer] Coordinator: Jennifer Freire MD BUN/CRE Ratio 9 Normal 9-20 [facility] Comment on above: Performed By: #### C P, CDP #### [facility] [address] [place], [place] [id number] [employer] Coordinator: Jennifer Freire MD Calcium [Mass/Vol] 9.9 mg/dL Normal 8.6-10.4 [facility] Comment on above: Performed By: #### C P, CDP #### [facility] [address] [place], [place] [id number] [employer] Coordinator: Jennifer Freire MD Chloride [Moles/Vol] 106 mmol/L Normal 98-107 [facility] Comment on above: Performed By: #### C P, CDP #### [facility] [address] [place] [address] [employer] Coordinator: Jennifer Freire MD CO2 [Moles/Vol] 22 mmol/L Normal 20-31 [facility] Comment on above: Performed By: #### C P, CDP #### [facility] [address] [place] [address] [employer] Coordinator: Jennifer Freire MD Creatinine [Mass/Vol] 0.8 mg/dL Normal 0.5-0.9 [facility] Comment on above: Performed By: #### C P, CDP #### [facility] [address] [place] [address] [employer] Coordinator: Jennifer Freire MD GFR/1.73 sq M.predicted among non-blacks MDRD (S/P/Bld) [Vol rate/Area] mL/min/{1.73_m2} Normal >60 [facility] Comment on above: Result Comment: These [...] Performed By: #### C P, CDP #### [facility] [address] [place] [address] [employer] Coordinator: Jennifer Freire MD Glucose [Mass/Vol] 93 mg/dL Normal 70-99 [facility] Comment on above: Performed By: #### C P, CDP #### [facility] [address] [place] [address] [employer] Coordinator: Jennifer Freire MD Potassium [Moles/Vol] 3.7 mmol/L Normal 3.7-5.3 [facility] Comment on above: Performed By: #### C P, CDP #### [facility] [address] [place], [place] [id number] [employer] Coordinator: Jennifer Freire MD Protein [Mass/Vol] 8.3 g/dL Normal 6.4-8.3 [facility] Comment on above: Performed By: #### C P, CDP #### [facility] [address] [place], [place] [id number] [employer] Coordinator: Jennifer Freire MD Sodium [Moles/Vol] 142 mmol/L Normal 135-144 [facility] Comment on above: Performed By: #### C P, CDP #### [facility] [address] [place] [address] [employer] Coordinator: Jennifer Freire MD Urea nitrogen [Mass/Vol] 7 mg/dL Normal 6-20 [facility] Comment on above: Performed By: #### C P, CDP #### [facility] [address] [place], [place] [id number] [employer] Coordinator: Jennifer Freire MD Surgical Pathologyon 024 Surgical Pathology Normal [facility] Comment on above: Result Comment: [facility] [address] [place] [address] Surgical Pathology Consultation Patient Name:ANTONIA NOYOLA:1985 (Age: 39)Gender:FTaken:4Reported:04/17/2024hysician(s):Adiel Aparicio M.D. ([phone])Copy To: Rec. #:[id number]: #[id number] Final Pathologic Diagnosis Uterus, cervix, bilateral fallopian tubes, and bilateral ovaries, TAHBSO: Cervix, negative for dysplasia Inactive endometrium with benign endometrial polyp Bilateral ovaries with endometriosis/endometrioma Unremarkable fallopian tubes Report Electronically Signed Out justenk/04/17/2024Evelin Joshi MD Interpretation performed at [facility], [address] [place] [address], License number: [id number]. Clinical History Endometriosis/ pelvic pain. Gross Description [...] entirely filled with red-brown, hemorrhagic turbid fluid Area Field Person sections are submitted in cassettes A-L, as: A anterior cervix B posterior cervix C anterior uterine wall D anterior endomyometrium E posterior uterine wall with whirled nodule F posterior endomyometrium G right fallopian tube with entire fimbriated end H-I right ovary J left fallopian tube with entire fimbriated end K-L left ovary (12, ss, [id number], m6) MW mxw/04/06/2024[facility] Specimen(s) Received Uterus, cervix, bilateral fallopian tubes, and bilateral ovaries Fee Codes(s): 1; 54734 CBC AND AUTO DIFFon 04-05- 24 ABSOLUTE BASOPHIL 0.1 X10E9/L Normal 0.0-0.2 [facility] Comment on above: Performed By: #### N UM #### [facility] ([id number]) [address] [place] [address] 86877 ABSOLUTE NEUTROPHIL 4.5 X10E9/L Normal 1.5-6.6 [facility] Comment on above: Performed By: #### N UM #### [facility] ([id number]) [address] [place] [address] 02168 Basophils/100 WBC (Bld) 1.1 % Normal [facility] Comment on above: Performed By: #### N UM #### [facility] ([id number]) [address] [place] [address] 76372 Eosinophils (Bld) [#/Vol] 0.0 10*3/uL Normal 0.0-0.4 [facility] Comment on above: Performed By: #### N UM #### [facility] ([id number]) [address] [place] [address] 78268 Eosinophils/100 WBC (Bld) 0.5 % Normal [facility] Comment on above: Performed By: #### N UM #### [facility] ([id number]) [address] [place] [address] 35839 Erythrocyte distribution width (RBC) [Ratio] 18.3 % High 11.5-15.0 [facility] Comment on above: Performed By: #### N UM #### [facility] ([id number]) [address] [place] [address] 28022 Hematocrit (Bld) [Volume fraction] 32.1 % Low 35-47 [facility] Comment on above: Performed By: #### N UM #### [facility] ([id number]) [address] [place] [address] 39794 Hemoglobin (Bld) [Mass/Vol] 10.2 g/dL Low 11.7-15.5 [facility] Comment on above: Performed By: #### N UM #### [facility] ([id number]) [address] [place] [address] 85651 Lymphocytes (Bld) [#/Vol] 2.5 10*3/uL Normal 1.0-3.5 [facility] Comment on above: Performed By: #### N UM #### [facility] ([id number]) [address] [place] [address] 12597 Lymphocytes/100 WBC (Bld) 33.1 % Normal [facility] Comment on above: Performed By: #### N UM #### [facility] ([id number]) [address] [place] [address] 70653 MCH (RBC) [Entitic mass] 22.6 pg Low 27-34 [facility] Comment on above: Performed By: #### N UM #### [facility] ([id number]) [address] [place] [address] 99689 MCHC (RBC) [Mass/Vol] 31.7 g/dL Low 32-36 [facility] Comment on above: Performed By: #### N UM #### [facility] ([id number]) [address] [place] [address] 35673 MCV (RBC) [Entitic vol] 71 fL Low 80-100 P [facility] Comment on above: Performed By: #### N UM #### [facility] ([id number]) [address] [place] [address] 35336 Monocytes (Bld) [#/Vol] 0.5 10*3/uL Normal 0-0.9 [facility] Comment on above: Performed By: #### N UM #### [facility] ([id number]) [address] [place] [address] 95612 Monocytes/100 WBC (Bld) 6.2 % Normal [facility] Comment on above: Performed By: #### N UM #### [facility] ([id number]) [address] [place] [address] 08743 Neutrophils/100 WBC (Bld) 59.1 % Normal [facility] Comment on above: Performed By: #### N UM #### [facility] ([id number]) [address] [place] [address] 12084 Platelet mean volume (Bld) [Entitic vol] 7.6 fL Normal 7-12 [facility] Comment on above: Performed By: #### N UM #### [facility] ([id number]) [address] [place] [address] 71500 Platelets (Bld) [#/Vol] 582 10*3/uL High 150-450 [facility] Comment on above: Performed By: #### N UM #### [facility] ([id number]) [address] [place] [address] 81165 RBC COUNT 4.51 X10E12/L Normal 3.80-5.20 [facility] Comment on above: Performed By: #### N UM #### [facility] ([id number]) [address] [place] [address] 09592 WBC (Bld) [#/Vol] 7.7 10*3/uL Normal 4.0-11.0 [facility] Comment on above: Performed By: #### N UM #### [facility] ([id number]) [address] [place] [address] 47723 COMPREHENSIVE METABOLIC PANE Van 04-05-2024 Albumin [Mass/Vol] 4.3 g/dL Normal 3.2-5.3 [facility] Comment on above: Performed By: #### N UM #### [facility] ([id number]) [address] [place] [address] 80543 ALP [Catalytic activity/Vol] 65 U/L Normal 39-130 [facility] Comment on above: Performed By: #### N UM #### [facility] ([id number]) [address] [place] [address] 58098 ALT [Catalytic activity/Vol] 20 U/L Normal 0-31 [facility] Comment on above: Performed By: #### N UM #### [facility] ([id number]) [address] [place] [address] 14940 Anion gap [Moles/Vol] 8 mmol/L Normal 5-15 [facility] Comment on above: Performed By: #### N UM #### [facility] ([id number]) [address] [place] [address] 30200 AST [Catalytic activity/Vol] 24 U/L Normal 0-41 [facility] Comment on above: Performed By: #### N UM #### [facility] ([id number]) [address] [place] [address] 23069 Bilirubin [Mass/Vol] 0.8 mg/dL Normal 0.3-1.2 [facility] Comment on above: Performed By: #### N UM #### [facility] ([id number]) [address] [place] [address] 38906 Calcium [Mass/Vol] 8.9 mg/dL Normal 8.5-10.5 [facility] Comment on above: Performed By: #### N UM #### [facility] ([id number]) [address] [place] [address] 23560 Chloride [Moles/Vol] 104 mmol/L Normal 98-109 [facility] Comment on above: Performed By: #### N UM #### [facility] ([id number]) [address] [place] [address] 30294 CO2 [Moles/Vol] 22 mmol/L Normal 22-32 [facility] Comment on above: Performed By: #### N UM #### [facility] ([id number]) [address] [place] [address] 77846 Creatinine [Mass/Vol] 0.62 mg/dL Normal 0.40-1.00 [facility] Comment on above: Result Comment: METH OD TRACEABLE TO IDMS STANDARD Performed By: #### N UM #### [facility] ([id number]) [address] [place] [address] 18382 eGFR (CKD-EPI) NON-RACE DEPENDENT >90 Normal >59 [facility] Comment on above: Result Comment: Reported eGFR is based on the CKD-EPI 2020 equation that does not use a race coefficient. Performed By: #### N UM #### [facility] ([id number]) [address] [place] [address] 08361 Glucose [Mass/Vol] 107 mg/dL High 65-99 [facility] Comment on above: Performed By: #### N UM #### [facility] ([id number]) [address] [place] [address] 05626 Potassium [Moles/Vol] 3.7 mmol/L Normal 3.5-5.0 [facility] Comment on above: Performed By: #### N UM #### [facility] ([id number]) [address] [place] [address] Protein [Mass/Vol] 8.0 g/dL Normal 6.0-8.0 [facility] Comment on above: Performed By: #### N UM #### [facility] ([id number]) [address] [place] [address] 08807 Sodium [Moles/Vol] 134 mmol/L Normal 134-146 [facility] Comment on above: Performed By: #### N UM #### [facility] ([id number]) [address] [place] [address] 36665 Urea nitrogen [Mass/Vol] 8 mg/dL Normal 5-23 [facility] Comment on above: Performed By: #### N UM #### [facility] ([id number]) [address] [place] [address] ABDOMEN AND PELVIS WO CON Ton [...] Atwood MD on 04/05/2024 3:57 PM Normal [facility] HCG ( test) Ql (U)o n 04-05-2024 Beta HCG ( test) Ql (U) Negative Normal NEG [facility] Comment on above: Performed By: #### N UM #### [facility] ([id number]) [address] [place] [address] 51462 LIPASEon 04-05-2024 Lipase [Catalytic activity/Vol] 30 U/L Normal 17-40 [facility] Comment on above: Performed By: #### N UM #### [facility] ([id number]) [address] [place] [address] 42650 Lactate (P arely) [Moles/Vol]o n 04-05-2024 LACTATE W/REFLEX 1.7 mmol/L Normal 0.4-2.0 [facility] Comment on above: Result Comment: Result did not trigger repeat Lactate, re-order if needed. Performed By: #### N UM #### [facility] ([id number]) [address] [place] [address] 13953 URN MACROSCOPIC NURon 2023 BILIRUBIN AUDREY Negative Normal NEG [facility] Comment on above: Performed By: #### N UM #### [facility] ([id number]) [address] [place] [address] 93863 BLOOD/HGB AUDREY Negative Normal NEG [facility] Comment on above: Performed By: #### N UM #### [facility] ([id number]) [address] [place] [address] [place] [address] GLUCOSE AUDREY Negative Normal NEG [facility] Comment on above: Performed By: #### N UM #### [facility] ([id number]) [address] [place] [address], [place] [address] KETONES AUDREY Negative Normal NEG [facility] Comment on above: Performed By: #### N UM #### [facility] ([id number]) [address] [place] [address] [place] [address] LEUKOCYTE ESTERASE AUDREY Negative Normal NEG [facility] Comment on above: Performed By: #### N UM #### [facility] ([id number]) [address] [place] [address] 47146 NITRITE AUDREY Negative Normal NEG [facility] Comment on above: Performed By: #### N UM #### [facility] ([id number]) [address] [place] [address] 22127 PH AUDREY 7.0 Normal 5.0-8.5 [facility] Comment on above: Performed By: #### N UM #### [facility] ([id number]) [address] [place] [address] 70463 PROTEIN AUDREY Negative Normal NEG [facility] Comment on above: Performed By: #### N UM #### [facility] ([id number]) [address] [place] [address] 77710 SPECIFIC GRAVITY AUDREY 1.010 Normal 1.003-1.035 [facility] Comment on above: Performed By: #### N UM #### [facility] ([id number]) [address] [place] [address] 32299 UROBILINOGEN AUDREY 0.2 eu/dL Normal <1.1 [facility] Comment on above: Performed By: #### N UM #### [facility] ([id number]) [address] [place] [address] 73354 US PELVIC WITH TRANSVAGINAL AND DUPLEXon 04-05-2024 [...] Martinez MD on 04/05/2024 3:03 PM Normal [facility] CBC AND AUTO DIFFon 03-28-20 ABSOLUTE BASOPHIL 0.1 X10E9/L Normal 0.0-0.2 [facility] Comment on above: Performed By: #### C BCA, CMP #### [facility] ([id number]) [address], [address] [place] [address] ABSOLUTE NEUTROPHIL 2.4 X10E9/L Normal 1.5-6.6 [facility] Comment on above: Performed By: #### C BCA, CMP #### [facility] ([id number]) [address], [address] [place] [address] Basophils/100 WBC (Bld) 1.1 % Normal P [facility] Comment on above: Performed By: #### C BCA, CMP #### [facility] ([id number]) [address] [address] [place] [address] Eosinophils (Bld) [#/Vol] 0.1 10*3/uL Normal 0.0-0.4 [facility] Comment on above: Performed By: #### C BCA, CMP #### [facility] ([id number]) [address] [place] [address] Eosinophils/100 WBC (Bld) 2.7 % Normal [facility] Comment on above: Performed By: #### C BCA, CMP #### [facility] ([id number]) [address] [place] [address] Erythrocyte distribution width (RBC) [Ratio] 18.7 % High 11.5-15.0 [facility] Comment on above: Performed By: #### C BCA, CMP #### [facility] ([id number]) [address], [address] [place] [address] Hematocrit (Bld) [Volume fraction] 31.3 % Low 35-47 [facility] Comment on above: Performed By: #### C HEATH, CMP #### [facility] ([id number]) [address], [address] [place] [address] Hemoglobin (Bld) [Mass/Vol] 9.9 g/dL Low 11.7-15.5 [facility] Comment on above: Performed By: #### C HEATH, CMP #### [facility] ([id number]) [address], [address] [place] [address] Lymphocytes (Bld) [#/Vol] 2.2 10*3/uL Normal 1.0-3.5 [facility] Comment on above: Performed By: #### C BCA, CMP #### [facility] ([id number]) [address], [address] [place] [address] Lymphocytes/100 WBC (Bld) 42.4 % Normal [facility] Comment on above: Performed By: #### C BCA, CMP #### [facility] ([id number]) [address], [address] [place] [address] MCH (RBC) [Entitic mass] 23.2 pg Low 27-34 [facility] Comment on above: Performed By: #### C BCA, CMP #### [facility] ([id number]) [address], [address] [place] [address] MCHC (RBC) [Mass/Vol] 31.7 g/dL Low 32-36 [facility] Comment on above: Performed By: #### C BCA, CMP #### [facility] ([id number]) [address], [address] [place] [address] MCV (RBC) [Entitic vol] 73 fL Low 80-100 [facility] Comment on above: Performed By: #### C BCA, CMP #### [facility] ([id number]) [address], [address] [place] [address] Monocytes (Bld) [#/Vol] 0.4 10*3/uL Normal 0-0.9 [facility] Comment on above: Performed By: #### C BCA, CMP #### [facility] ([id number]) [address], [address] [place] [address] Monocytes/100 WBC (Bld) 7.9 % Normal [facility] Comment on above: Performed By: #### C BCA, CMP #### [facility] ([id number]) [address], [address] [place] [address] Neutrophils/100 WBC (Bld) 45.9 % Normal [facility] Comment on above: Performed By: #### C BCA, CMP #### [facility] ([id number]) [address], [address] [place] [address] Platelet mean volume (Bld) [Entitic vol] 8.0 fL Normal 7-12 [facility] Comment on above: Performed By: #### C BCA, CMP #### [facility] ([id number]) [address], [address] [place] [address] Platelets (Bld) [#/Vol] 457 10*3/uL High 150-450 [facility] Comment on above: Performed By: #### C BCA, CMP #### [facility] ([id number]) [address], [address] [place] [address] RBC COUNT 4.28 X10E12/L Normal 3.80-5.20 [facility] Comment on above: Performed By: #### C BCA, CMP #### [facility] ([id number]) [address], [address] [place] [address] WBC (Bld) [#/Vol] 5.2 10*3/uL Normal 4.0-11.0 [facility] Comment on above: Performed By: #### C BCA, CMP #### [facility] ([id number]) [address], [address] [place] [address] COMPREHENSIVE METABOLIC PANE Van 03-28-2024 Albumin [Mass/Vol] 4.0 g/dL Normal 3.2-5.3 [facility] Comment on above: Performed By: #### C BCA, CMP #### [facility] ([id number]) [address], [address] [place] [address] ALP [Catalytic activity/Vol] 61 U/L Normal 39-130 [facility] Comment on above: Performed By: #### C BCA, CMP #### [facility] ([id number]) [address], [address] [place] [address] ALT [Catalytic activity/Vol] 12 U/L Normal 0-31 [facility] Comment on above: Performed By: #### C BCA, CMP #### [facility] ([id number]) [address], [address] [place] [address] Anion gap [Moles/Vol] 10 mmol/L Normal 5-15 [facility] Comment on above: Performed By: #### C BCA, CMP #### [facility] ([id number]) [address], [address] [place] [address] AST [Catalytic activity/Vol] 14 U/L Normal 0-41 [facility] Comment on above: Performed By: #### C BCA, CMP #### [facility] ([id number]) [address], [address] [place] [address] Bilirubin [Mass/Vol] 0.3 mg/dL Normal 0.3-1.2 [facility] Comment on above: Performed By: #### C BCA, CMP #### [facility] ([id number]) [address], [address] [place] [address] Calcium [Mass/Vol] 9.0 mg/dL Normal 8.5-10.5 [facility] Comment on above: Performed By: #### C BCA, CMP #### [facility] ([id number]) [address], [address] [place] [address] Chloride [Moles/Vol] 107 mmol/L Normal 98-109 [facility] Comment on above: Performed By: #### C BCA, CMP #### [facility] ([id number]) [address], [address] [place] [address] CO2 [Moles/Vol] 24 mmol/L Normal 22-32 [facility] Comment on above: Performed By: #### C BCA, CMP #### [facility] ([id number]) [address], [address] [place] [address] Creatinine [Mass/Vol] 0.72 mg/dL Normal 0.40-1.00 [facility] Comment on above: Result Comment: METH OD TRACEABLE TO IDMS STANDARD Performed By: #### C BCA, CMP #### [facility] ([id number]) [address], [address] [place] [address] eGFR (CKD-EPI) NON-RACE DEPENDENT >90 Normal >59 [facility] Comment on above: Result Comment: Reported eGFR is based on the CKD-EPI 2020 equation that does not use a race coefficient. Performed By: #### C BCA, CMP #### [facility] ([id number]) [address], [address] [place] [address] Glucose [Mass/Vol] 101 mg/dL High 65-99 [facility] Comment on above: Performed By: #### C BCA, CMP #### [facility] ([id number]) [address], [address] [place] [address] Potassium [Moles/Vol] 3.9 mmol/L Normal 3.5-5.0 [facility] Comment on above: Performed By: #### C BCA, CMP #### [facility] ([id number]) [address], [address] [place] [address] Protein [Mass/Vol] 6.9 g/dL Normal 6.0-8.0 [facility] Comment on above: Performed By: #### C BCA, CMP #### [facility] ([id number]) [address], [address] [place] [address] Sodium [Moles/Vol] 141 mmol/L Normal 134-146 [facility] Comment on above: Performed By: #### C BCA, CMP #### [facility] ([id number]) [address], [address] [place] [address] Urea nitrogen [Mass/Vol] 10 mg/dL Normal 5-23 [facility] Comment on above: Performed By: #### C BCA, CMP #### [facility] ([id number]) [address], [address] [place] [address] CBC AND AUTO DIFFon 25-20 24 ABSOLUTE BASOPHIL 0.1 X10E9/L Normal 0.0-0.2 [facility] Comment on above: Performed By: #### N UM #### [facility] ([id number]) [address] [place] [address], [place] [address] ABSOLUTE NEUTROPHIL 3.0 X10E9/L Normal 1.5-6.6 [facility] Comment on above: Performed By: #### N UM #### [facility] ([id number]) [address] [place] [address] Basophils/100 WBC (Bld) 1.1 % Normal [facility] Comment on above: Performed By: #### N UM #### [facility] ([id number]) [address] [place] [address] Eosinophils (Bld) [#/Vol] 0.1 10*3/uL Normal 0.0-0.4 [facility] Comment on above: Performed By: #### N UM #### [facility] ([id number]) [address] [place] [address] Eosinophils/100 WBC (Bld) 1.0 % Normal [facility] Comment on above: Performed By: #### N UM #### [facility] ([id number]) [address] [place] [address] Erythrocyte distribution width (RBC) [Ratio] 17.6 % High 11.5-15.0 [facility] Comment on above: Performed By: #### N UM #### [facility] ([id number]) [address] [place] [address] Hematocrit (Bld) [Volume fraction] 34.1 % Low 35-47 [facility] Comment on above: Performed By: #### N UM #### [facility] ([id number]) [address] [place] [address] Hemoglobin (Bld) [Mass/Vol] 10.9 g/dL Low 11.7-15.5 [facility] Comment on above: Performed By: #### N UM #### [facility] ([id number]) [address] [place] [address] Lymphocytes (Bld) [#/Vol] 2.0 10*3/uL Normal 1.0-3.5 [facility] Comment on above: Performed By: #### N UM #### [facility] ([id number]) [address] [place] [address] Lymphocytes/100 WBC (Bld) 36.4 % Normal [facility] Comment on above: Performed By: #### N UM #### [facility] ([id number]) [address] [place] [address] MCH (RBC) [Entitic mass] 22.7 pg Low 27-34 [facility] Comment on above: Performed By: #### N UM #### [facility] ([id number]) [address] [place] [address] MCHC (RBC) [Mass/Vol] 31.8 g/dL Low 32-36 [facility] Comment on above: Performed By: #### N UM #### [facility] ([id number]) [address] [place] [address] MCV (RBC) [Entitic vol] 71 fL Low 80-100 P [facility] Comment on above: Performed By: #### N UM #### [facility] ([id number]) [address] [place] [address] Monocytes (Bld) [#/Vol] 0.4 10*3/uL Normal 0-0.9 [facility] Comment on above: Performed By: #### N UM #### [facility] ([id number]) [address] [place] [address] Monocytes/100 WBC (Bld) 6.9 % Normal [facility] Comment on above: Performed By: #### N UM #### [facility] ([id number]) [address] [place] [address] Neutrophils/100 WBC (Bld) 54.6 % Normal [facility] Comment on above: Performed By: #### N UM #### [facility] ([id number]) [address] [place] [address] Platelet mean volume (Bld) [Entitic vol] 7.7 fL Normal 7-12 [facility] Comment on above: Performed By: #### N UM #### [facility] ([id number]) [address] [place] [address] Platelets (Bld) [#/Vol] 514 10*3/uL High 150-450 [facility] Comment on above: Performed By: #### N UM #### [facility] ([id number]) [address] [place] [address] RBC COUNT 4.78 X10E12/L Normal 3.80-5.20 [facility] Comment on above: Performed By: #### N UM #### [facility] ([id number]) [address] [place] [address] WBC (Bld) [#/Vol] 5.5 10*3/uL Normal 4.0-11.0 [facility] Comment on above: Performed By: #### N UM #### [facility] ([id number]) [address] [place] [address] COMPREHENSIVE METABOLIC PANE Van 03-07-2024 Albumin [Mass/Vol] 4.5 g/dL Normal 3.2-5.3 [facility] Comment on above: Performed By: #### N UM #### [facility] ([id number]) [address] [place] [address] ALP [Catalytic activity/Vol] 64 U/L Normal 39-130 [facility] Comment on above: Performed By: #### N UM #### [facility] ([id number]) [address] [place] [address] ALT [Catalytic activity/Vol] 18 U/L Normal 0-31 [facility] Comment on above: Performed By: #### N UM #### [facility] ([id number]) [address] [place] [address] Anion gap [Moles/Vol] 8 mmol/L Normal 5-15 [facility] Comment on above: Performed By: #### N UM #### [facility] ([id number]) [address] [place] [address] AST [Catalytic activity/Vol] 19 U/L Normal 0-41 [facility] Comment on above: Performed By: #### N UM #### [facility] ([id number]) [address] [place] [address] Bilirubin [Mass/Vol] 0.7 mg/dL Normal 0.3-1.2 [facility] Comment on above: Performed By: #### N UM #### [facility] ([id number]) [address] [place] [address] Calcium [Mass/Vol] 9.4 mg/dL Normal 8.5-10.5 [facility] Comment on above: Performed By: #### N UM #### [facility] ([id number]) [address] [place] [address] Chloride [Moles/Vol] 105 mmol/L Normal 98-109 [facility] Comment on above: Performed By: #### N UM #### [facility] ([id number]) [address] [place] [address] CO2 [Moles/Vol] 21 mmol/L Low 22-32 [facility] Comment on above: Performed By: #### N UM #### [facility] ([id number]) [address] [place] [address] Creatinine [Mass/Vol] 0.68 mg/dL Normal 0.40-1.00 [facility] Comment on above: Result Comment: METH OD TRACEABLE TO IDMS STANDARD Performed By: #### N UM #### [facility] ([id number]) [address] [place] [address] eGFR (CKD-EPI) NON-RACE DEPENDENT >90 Normal >59 [facility] Comment on above: Result Comment: Reported eGFR is based on the CKD-EPI 2020 equation that does not use a race coefficient. Performed By: #### N UM #### [facility] ([id number]) [address] [place] [address] Glucose [Mass/Vol] 107 mg/dL High 65-99 [facility] Comment on above: Performed By: #### N UM #### [facility] ([id number]) [address] [place] [address] Potassium [Moles/Vol] 3.8 mmol/L Normal 3.5-5.0 [facility] Comment on above: Performed By: #### N UM #### [facility] ([id number]) [address] [place] [address] Protein [Mass/Vol] 8.6 g/dL High 6.0-8.0 [facility] Comment on above: Performed By: #### N UM #### [facility] ([id number]) [address] [place] [address] Sodium [Moles/Vol] 134 mmol/L Normal 134-146 [facility] Comment on above: Performed By: #### N UM #### [facility] ([id number]) [address] [place] [address] Urea nitrogen [Mass/Vol] 10 mg/dL Normal 5-23 [facility] Comment on above: Performed By: #### N UM #### [facility] ([id number]) [address] [place] [address] HCG ( test) Ql (U)o n 03-07-2024 Beta HCG ( test) Ql (U) Negative Normal NEG [facility] Comment on above: Performed By: #### C BCA, CMP #### [facility] ([id number]) [address] [place] [address], [place] [address] URN MACROSCOPIC NURon 2023 BILIRUBIN AUDREY Negative Normal NEG [facility] Comment on above: Performed By: #### C BCA, CMP #### [facility] ([id number]) [address] [place] [address], [place] [address] BLOOD/HGB AUDREY Trace Abnormal NEG [facility] Comment on above: Performed By: #### C BCA, CMP #### [facility] ([id number]) [address] [place] [address], [place] [address] GLUCOSE AUDREY Negative Normal NEG [facility] Comment on above: Performed By: #### C BCA, CMP #### [facility] ([id number]) [address] [place] [address], [place] [address] KETONES AUDREY Negative Normal NEG [facility] Comment on above: Performed By: #### C BCA, CMP #### [facility] ([id number]) [address] [place] [address], [place] [address] LEUKOCYTE ESTERASE AUDREY Negative Normal NEG [facility] Comment on above: Performed By: #### C BCA, CMP #### [facility] ([id number]) [address] [place] [address] [place] [address] NITRITE AUDREY Negative Normal NEG [facility] Comment on above: Performed By: #### C BCA, CMP #### [facility] ([id number]) [address] [place] [address] [place] [address] PH AUDREY 6.0 Normal 5.0-8.5 [facility] Comment on above: Performed By: #### C BCA, CMP #### [facility] ([id number]) [address] [place] [address] PROTEIN AUDREY Negative Normal NEG [facility] Comment on above: Performed By: #### C BCA, CMP #### [facility] ([id number]) [address] [place] [address] SPECIFIC GRAVITY AUDREY 1.010 Normal 1.003-1.035 [facility] Comment on above: Performed By: #### C BCA, CMP #### [facility] ([id number]) [address] [place] [address] UROBILINOGEN AUDREY 0.2 eu/dL Normal <1.1 [facility] Comment on above: Performed By: #### C BCA, CMP #### [facility] ([id number]) [address] [place] [address] CBCon 02-24-2024 ABSOLUTE BAS 0.1 10*3/uL Normal 0.0-0.2 [facility] ABSOLUTE EOS 0.2 10*3/uL Normal 0.0-0.7 [facility] ABSOLUTE NEUTROPHIL COUNT 3.2 10*3/uL Normal 1.4-6.5 [facility] Basophils/100 WBC (Bld) 0.7 % Normal 0.0-2.0 [facility] DTYPE AUTO DIFF Normal [facility] Eosinophils/100 WBC (Bld) 2.3 % Normal 0.0-11.0 [facility] Lymphocytes (Bld) [#/Vol] 3.5 10*3/uL High 1.2-3.4 [facility] Lymphocytes/100 WBC (Bld) 47.1 % Normal 20.0-55.0 [facility] Monocytes (Bld) [#/Vol] 0.5 10*3/uL Normal 0.0-0.7 [facility] Monocytes/100 WBC (Bld) 7.4 % Normal 0.0-10.0 [facility] Neutrophils/100 WBC (Bld) 42.5 % Normal 37.0-75.0 [facility] Erythrocyte distribution width (RBC) [Ratio] 17.1 % High 11.5-14.5 [facility] Hematocrit (Bld) [Volume fraction] 33.6 % Low 36.0-48.0 [facility] Hemoglobin (Bld) [Mass/Vol] 10.3 g/dL Low 12.0-16.0 [facility] MCH (RBC) [Entitic mass] 22.7 pg Low 26.0-35.0 [facility] MCHC (RBC) [Mass/Vol] 30.8 g/dL Normal 27.0-37.0 [facility] MCV (RBC) [Entitic vol] 73.5 fL Low 80.0-100.0 [facility] Platelet mean volume (Bld) [Entitic vol] 7.9 fL Normal 7.4-11.0 [facility] Platelets (Bld) [#/Vol] 466 10*3/uL High 130-400 [facility] RBC (Bld) [#/Vol] 4.57 10*6/uL Normal 4.0-5.4 [facility] WBC (Bld) [#/Vol] 7.4 10*3/uL Normal 3.6-11.0 [facility] CBC, EDIF, PLATELETon 2023 ABSOLUTE BASOPHIL COUNT 0.1 10*3/uL 0.0 - 0.2 10*3/uL [facility] Basophils/100 WBC (Bld) 0.7 % 0.0 - 2.0 % [facility] Differential cell count method Nom (Bld) AUTO DIFF % [facility] Eosinophils (Bld) [#/Vol] 0.2 10*3/uL 0.0 - 0.7 10*3/uL [facility] Eosinophils/100 WBC (Bld) 2.3 % 0.0 - 11.0 % [facility] Erythrocyte distribution width (RBC) [Ratio] 17.1 % High 11.5 - 14.5 % [facility] Hematocrit (Bld) [Volume fraction] 33.6 % Low 36.0 - 48.0 % [facility] Hemoglobin (Bld) [Mass/Vol] 10.3 g/dL Low [facility] Interpretation and review of laboratory results Abnormal [facility] Lymphocytes (Bld) [#/Vol] 3.5 10*3/uL High 1.2 - 3.4 10*3/uL [facility] Lymphocytes/100 WBC (Bld) 47.1 % 20.0 - 55.0 % [facility] MCH (RBC) [Entitic mass] 22.7 pg Low 26.0 - 35.0 PG [facility] MCHC (RBC) [Mass/Vol] 30.8 g/dL [facility] MCV (RBC) [Entitic vol] 73.5 fL Low A [facility] Monocytes (Bld) [#/Vol] 0.5 10*3/uL 0.0 - 0.7 10*3/uL [facility] Monocytes/100 WBC (Bld) 7.4 % 0.0 - 10.0 % [facility] Neutrophils (Bld) [#/Vol] 3.2 10*3/uL 1.4 - 6.5 10*3/uL [facility] Neutrophils/100 WBC (Bld) 42.5 % 37.0 - 75.0 % [facility] Platelet mean volume (Bld) [Entitic vol] 7.9 fL [facility] Platelets (Bld) [#/Vol] 466 10*3/uL High 130 - 400 10*3/uL [facility] RBC (Bld) [#/Vol] 4.57 10*6/uL 4.0 - 5.4 10*6/uL [facility] WBC (Bld) [#/Vol] 7.4 10*3/uL 3.6 - 11.0 10*3/uL [facility] CMP FASTINGon 02-24-2024 A:G RATIO 1.1 RATIO Low 1.3-2.2 [facility] ALBUMIN 4.1 G/dl Normal 3.5-5.0 [facility] ALP [Catalytic activity/Vol] 62 U/L Normal 38-126 [facility] ALT [Catalytic activity/Vol] 23 U/L Normal <35 [facility] AST [Catalytic activity/Vol] 45 U/L High 14-36 [facility] Bilirubin [Mass/Vol] 0.3 mg/dL Normal 0.2-1.3 [facility] Calcium [Mass/Vol] 8.8 mg/dL Normal 8.4-10.2 [facility] Chloride [Moles/Vol] 110 mmol/L High 98-107 [facility] Comment on above: Result Comment: Salvador carlson note: Triglyceride levels of 600mg/dL or higher may positively bias chloride results by approximately 2.1 mmol CO2 [Moles/Vol] 23 mmol/L Normal 22-30 [facility] Creatinine [Mass/Vol] 0.80 mg/dL Normal 0.7-1.2 [facility] EST. GFR, 104 ml/min/1.73sq.m Normal [facility] EST. GFR,Non 86 ml/min/1.73sq.m Normal [facility] GFR Information Average GFR for 30-3 9 years old = 107. Normal [facility] Comment on above: Result Comment: Continuity Writer franklin Kidney disease, GFR = <60. Kidney failure, GFR = <15. The GFR estimate is not adjusted for extreme body surface area or acute process, nor has it been validated for women or ethnic groups other than and . Glucose [Mass/Vol] 81 mg/dL Normal 70-100 [facility] Comment on above: Result Comment: NORMAL <100 mg/dL PREDIABETES 101-126 mg/dL DIABETES 126 mg/dL or higher Potassium [Moles/Vol] 3.9 mmol/L Normal 3.5-5.1 [facility] Protein [Mass/Vol] 7.7 g/dL Normal 6.3-8.2 [facility] Sodium [Moles/Vol] 141 mmol/L Normal 137-145 [facility] Urea nitrogen [Mass/Vol] 9 mg/dL Normal 7-20 [facility] COMPREHENSIVE METABOLIC PANE Van 02-24-2024 Albumin [Mass/Vol] 4.1 G/dl 3.5 - 5.0 G/dl [facility] Albumin/Globulin [Mass ratio] 1.1 {ratio} Low [facility] ALP [Catalytic activity/Vol] 62 U/L [facility] ALT [Catalytic activity/Vol] 23 U/L NINF [facility] AST [Catalytic activity/Vol] 45 U/L High [facility] Bilirubin [Mass/Vol] 0.3 mg/dL [facility] Calcium [Mass/Vol] 8.8 mg/dL [facility] Chloride [Moles/Vol] 110 mmol/L High [facility] Comment on above: Please note: Triglyc eride levels of 600mg/dL or higher may positively bias chloride results by approximately 2.1 mmol CO2 [Moles/Vol] 23 mmol/L [facility] Creatinine [Mass/Vol] 0.80 mg/dL [facility] Health GFR COMMENT Average GFR for 30-3 9 years old = 107. [facility] Comment on above: Chronic Kidney disea se, GFR = <60. Kidney failure, GFR = <15. The GFR estimate is not adjusted for extreme body surface area or acute process, nor has it been validated for women or ethnic groups other than and . GFR/1.73 sq M.predicted among blacks MDRD (S/P/Bld) [Vol rate/Area] 104 mL/min/{1.73_m2} ml/min/1.73 sq.m [facility] GFR/1.73 sq M.predicted among non-blacks MDRD (S/P/Bld) [Vol rate/Area] 86 mL/min/{1.73_m2} ml/min/1.73 sq.m [facility] Glucose post fast [Mass/Vol] 81 mg/dL [facility] Comment on above: NORMAL <100 mg/dL PREDIABETES 101-126 mg/dL DIABETES 126 mg/dL or higher Interpretation and review of laboratory results Abnormal [facility] Potassium [Moles/Vol] 3.9 mmol/L [facility] Protein [Mass/Vol] 7.7 g/dL [facility] Sodium [Moles/Vol] 141 mmol/L [facility] Urea nitrogen [Mass/Vol] 9 mg/dL [facility] HCG ( test) Ql (U)o n 02-24-2024 [facility] HCG QUALITATIVE, URINEon HCG ( test) Ql (U) Negative [facility] No Panel Informationon 02-23 Interpretation and review of laboratory results Abnormal [facility] URINALYSIS, MACROon 02-24-20 24 Bilirubin Ql (U) Negative NEGATIVE [facility] Clarity (U) CLEAR CLEAR [facility] Color (U) YELLOW YELLOW [facility] Glucose Test strip (U) [Mass/Vol] Negative NEGATIVE mg/dl [facility] Hemoglobin Ql (U) Negative NEGATIVE [facility] Ketones (U) [Mass/Vol] Negative NEGAT NAYE mg/dl [facility] Leukocyte esterase Test strip Ql (U) MODERATE Abnormal NEGATIVE [facility] Nitrite Ql (U) Negative NEGATIVE [facility] pH (U) 6.0 [pH] 5.0 - 7.0 [facility] Protein Ql (U) Negative NEGATIVE mg/dl [facility] Specific gravity (U) [Rel density] 1.010 1.010 - 1.025 [facility] Urobilinogen (U) [Mass/Vol] 0.2 mg/dL [facility] URINE HCG QUALon 02-24-2024 Beta HCG ( test) Ql (U) Negative Normal [facility] URINE MACROSCOPICon 02-24-20 24 Bilirubin Ql (U) Negative Normal NEGATIVE [facility] Clarity (U) CLEAR Normal CLEAR [facility] Color (U) YELLOW Normal YELLOW [facility] Glucose Ql (U) Negative Normal NEGATIVE [facility] pH (U) 6.0 [pH] Normal 5.0-7.0 [facility] URINE HEMOGLOBIN Negative Normal NEGATIVE [facility] URINE KETONE Negative Normal NEGATIVE [facility] URINE LEUKOTEST MODERATE Abnormal NEGATIVE [facility] URINE NITRATES Negative Normal NEGATIVE [facility] URINE SPEC GRAVITY 1.010 Normal 1.010-1.025 [facility] URINE TOTAL PROTEIN Negative Normal NEGATIVE [facility] Urobilinogen Qn (U) 0.2 {Ivone'U}/dL Normal 0.2-1.0 [facility] URINE MICROSCOPICon 02-24-20 24 Bacteria LM.HPF (Urine sed) [#/Area] TRACE Abnormal NEGATIVE [facility] Casts LM.LPF (Urine sed) [#/Area] NONE NONE /LPF [facility] Crystals LM Nom (Urine sed) NONE NONE [facility] Epithelial cells LM Ql (Urine sed) 5 TO 10 /HPF [facility] Mucus Ql (Urine sed) Negative NEGATIVE [facility] RBC LM.HPF (Urine sed) [#/Area] Negative NEGATIVE /HPF [facility] Urine sediment comments LM Edson (Urine sed) CULTURE CRITERIA NOT MET, NO CULTURE PERFORMED. [facility] WBC LM.HPF (Urine sed) [#/Area] 1 TO 5 NEGATIVE /HPF [facility] BACTERIA TRACE Abnormal NEGATIVE [facility] CASTS NONE Normal NONE [facility] CRYSTAL NONE Normal NONE [facility] Epithelial cells LM Ql (Urine sed) 5 TO 10 Normal [facility] Mucus Ql (Urine sed) Negative Normal NEGATIVE [facility] URINE COMMENT CULTURE CRITERIA NOT MET, NO CULTURE PERFORMED. Normal [facility] URINE RBC'S Negative Normal NEGATIVE [facility] URINE WBC'S 1 TO 5 Normal NEGATIVE [facility] CBCon 02-16-2024 ABSOLUTE BAS 0.1 10*3/uL Normal 0.0-0.2 [facility] ABSOLUTE EOS 0.0 10*3/uL Normal 0.0-0.7 [facility] ABSOLUTE NEUTROPHIL COUNT 2.7 10*3/uL Normal 1.4-6.5 [facility] Basophils/100 WBC (Bld) 1.4 % Normal 0.0-2.0 [facility] DTYPE AUTO DIFF Normal [facility] Eosinophils/100 WBC (Bld) 0.5 % Normal 0.0-11.0 [facility] Lymphocytes (Bld) [#/Vol] 2.1 10*3/uL Normal 1.2-3.4 [facility] Lymphocytes/100 WBC (Bld) 40.3 % Normal 20.0-55.0 [facility] Monocytes (Bld) [#/Vol] 0.3 10*3/uL Normal 0.0-0.7 [facility] Monocytes/100 WBC (Bld) 5.6 % Normal 0.0-10.0 [facility] Neutrophils/100 WBC (Bld) 52.2 % Normal 37.0-75.0 [facility] Erythrocyte distribution width (RBC) [Ratio] 17.0 % High 11.5-14.5 [facility] Hematocrit (Bld) [Volume fraction] 35.2 % Low 36.0-48.0 [facility] Hemoglobin (Bld) [Mass/Vol] 10.9 g/dL Low 12.0-16.0 [facility] MCH (RBC) [Entitic mass] 22.6 pg Low 26.0-35.0 [facility] MCHC (RBC) [Mass/Vol] 30.9 g/dL Normal 27.0-37.0 [facility] MCV (RBC) [Entitic vol] 73.0 fL Low 80.0-100.0 [facility] Platelet mean volume (Bld) [Entitic vol] 7.3 fL Low 7.4-11.0 [facility] Platelets (Bld) [#/Vol] 529 10*3/uL High 130-400 [facility] RBC (Bld) [#/Vol] 4.81 10*6/uL Normal 4.0-5.4 [facility] WBC (Bld) [#/Vol] 5.1 10*3/uL Normal 3.6-11.0 [facility] CBC, EDIF, PLATELETon 2023 ABSOLUTE BASOPHIL COUNT 0.1 10*3/uL 0.0 - 0.2 10*3/uL [facility] Basophils/100 WBC (Bld) 1.4 % 0.0 - 2.0 % [facility] Differential cell count method Nom (Bld) AUTO DIFF % [facility] Eosinophils (Bld) [#/Vol] 0.0 10*3/uL 0.0 - 0.7 10*3/uL [facility] Eosinophils/100 WBC (Bld) 0.5 % 0.0 - 11.0 % [facility] Erythrocyte distribution width (RBC) [Ratio] 17.0 % High 11.5 - 14.5 % [facility] Hematocrit (Bld) [Volume fraction] 35.2 % Low 36.0 - 48.0 % [facility] Hemoglobin (Bld) [Mass/Vol] 10.9 g/dL Low [facility] Interpretation and review of laboratory results Abnormal [facility] Lymphocytes (Bld) [#/Vol] 2.1 10*3/uL 1.2 - 3.4 10*3/uL [facility] Lymphocytes/100 WBC (Bld) 40.3 % 20.0 - 55.0 % [facility] MCH (RBC) [Entitic mass] 22.6 pg Low 26.0 - 35.0 PG [facility] MCHC (RBC) [Mass/Vol] 30.9 g/dL [facility] MCV (RBC) [Entitic vol] 73.0 fL Low A [facility] Monocytes (Bld) [#/Vol] 0.3 10*3/uL 0.0 - 0.7 10*3/uL [facility] Monocytes/100 WBC (Bld) 5.6 % 0.0 - 10.0 % [facility] Neutrophils (Bld) [#/Vol] 2.7 10*3/uL 1.4 - 6.5 10*3/uL [facility] Neutrophils/100 WBC (Bld) 52.2 % 37.0 - 75.0 % [facility] Platelet mean volume (Bld) [Entitic vol] 7.3 fL Low [facility] Platelets (Bld) [#/Vol] 529 10*3/uL High 130 - 400 10*3/uL [facility] RBC (Bld) [#/Vol] 4.81 10*6/uL 4.0 - 5.4 10*6/uL [facility] WBC (Bld) [#/Vol] 5.1 10*3/uL 3.6 - 11.0 10*3/uL [facility] CHEM 7 FASTINGon 02-16-2024 Chloride [Moles/Vol] 109 mmol/L High 98-107 [facility] Comment on above: Result Comment: Salvador carlson note: Triglyceride levels of 600mg/dL or higher may positively bias chloride results by approximately 2.1 mmol CO2 [Moles/Vol] 22 mmol/L Normal 22-30 [facility] Creatinine [Mass/Vol] 0.70 mg/dL Normal 0.7-1.2 [facility] EST. GFR, 121 ml/min/1.73sq.m Normal [facility] EST. GFR,Non 100 ml/min/1.73sq.m Normal [facility] GFR Information Average GFR for 30-3 9 years old = 107. Normal [facility] Comment on above: Result Comment: Continuity Writer franklin Kidney disease, GFR = <60. Kidney failure, GFR = <15. The GFR estimate is not adjusted for extreme body surface area or acute process, nor has it been validated for women or ethnic groups other than and . Glucose [Mass/Vol] 106 mg/dL High 70-100 [facility] Comment on above: Result Comment: NORMAL <100 mg/dL PREDIABETES 101-126 mg/dL DIABETES 126 mg/dL or higher Potassium [Moles/Vol] 3.8 mmol/L Normal 3.5-5.1 [facility] Sodium [Moles/Vol] 139 mmol/L Normal 137-145 [facility] Urea nitrogen [Mass/Vol] 8 mg/dL Normal 7-20 [facility] CHEM 7 (LYTES,BUN,CREA,GLUC) on 02-16-2024 Chloride [Moles/Vol] 109 mmol/L High [facility] Comment on above: Please note: Triglyc eride levels of 600mg/dL or higher may positively bias chloride results by approximately 2.1 mmol CO2 [Moles/Vol] 22 mmol/L [facility] Creatinine [Mass/Vol] 0.70 mg/dL [facility] GFR COMMENT Average GFR for 30-3 9 years old = 107. [facility] Comment on above: Chronic Kidney disea se, GFR = <60. Kidney failure, GFR = <15. The GFR estimate is not adjusted for extreme body surface area or acute process, nor has it been validated for women or ethnic groups other than and . GFR/1.73 sq M.predicted among blacks MDRD (S/P/Bld) [Vol rate/Area] 121 mL/min/{1.73_m2} ml/min/1.73 sq.m [facility] GFR/1.73 sq M.predicted among non-blacks MDRD (S/P/Bld) [Vol rate/Area] 100 mL/min/{1.73_m2} ml/min/1.73 sq.m [facility] Glucose post fast [Mass/Vol] 106 mg/dL High [facility] Comment on above: NORMAL <100 mg/dL PREDIABETES 101-126 mg/dL DIABETES 126 mg/dL or higher Potassium [Moles/Vol] 3.8 mmol/L [facility] Sodium [Moles/Vol] 139 mmol/L [facility] Urea nitrogen [Mass/Vol] 8 mg/dL [facility] CT ABDOMEN/PELVIS WITH CONTR Agustín 02-16-2024 [...] 3. There is no obstructive uropathy. Normal [facility] CT Abdomen and Pelvis W cont rast [...] lesion. 3. There is no obstructive uropathy. [facility] Radiology Study observation (narrative) [facility] CT Abdomen and Pelvis W cont rast IVOrdered By: Jadon Ashraf on 02-16-2024 [facility] Work Phone: HCG ( test) Ql (U)o n 02-16-2024 [facility] HCG QUALITATIVE, URINEon HCG ( test) Ql (U) Negative [facility] HEPATIC FUNCTION PANELon Albumin [Mass/Vol] 4.5 g/dL [facility] ALP [Catalytic activity/Vol] 71 U/L [facility] ALT [Catalytic activity/Vol] 24 U/L NINF [facility] AST [Catalytic activity/Vol] 27 U/L [facility] Bilirubin [Mass/Vol] 0.5 mg/dL [facility] Bilirubin.direct [Mass/Vol] 0.5 mg/dL High [facility] Protein [Mass/Vol] 8.2 g/dL [facility] LIPASEon 02-16-2024 Lipase [Catalytic activity/Vol] 127 U/L 23 - 300 U/L [facility] LIPASE,SERUMon 02-16-2024 LIPASE,SERUM 127 U/L Normal 23-300 [facility] LIVER PANELon 02-16-2024 Albumin [Mass/Vol] 4.5 g/dL Normal 3.5-5.0 [facility] ALP [Catalytic activity/Vol] 71 U/L Normal 38-126 [facility] ALT [Catalytic activity/Vol] 24 U/L Normal <35 [facility] AST [Catalytic activity/Vol] 27 U/L Normal 14-36 [facility] Bilirubin [Mass/Vol] 0.5 mg/dL Normal 0.2-1.3 [facility] Bilirubin.indirect [Mass/Vol] 0.5 mg/dL High 0-0.4 [facility] Protein [Mass/Vol] 8.2 g/dL Normal 6.3-8.2 [facility] No Panel Informationon 02-15 Interpretation and review of laboratory results Abnormal [facility] PROTIMEon 02-16-2024 INR Coag (PPP) [Relative time] 0.89 {INR} Normal 0.88-1.14 [facility] Comment on above: Result Comment: 2.0-3.0 THERAPEUTIC RANGE 2.5-3.5 MECHANICAL VALVE RANGE PT Coag (PPP) [Time] 12.2 s Normal 11.8-14.4 [facility] PROTIME-INRon 02-16-2024 INR Coag (PPP) [Relative time] 0.89 {INR} 0.88 - 1.14 [facility] Comment on above: 2.0-3.0 THERAPEUTIC RANGE [...] No free air collections underneath the diaphragms. [facility] Radiology Study observation (narrative) [facility] Portable XR Chest ViewsOrder ed By: Davi Cheng on 02-16-2024 [facility] Work Phone: URINE HCG QUALon 02-16-2024 Beta HCG ( test) Ql (U) Negative Normal [facility] XR CHEST 1 VIEW PORTABLEon 0 02-16-2024 [...] free air collections underneath the diaphragms. Normal [facility] ED Clinical Summaryon 2023 ED Clinical Summary ED Clinical Summary [place] [id number] ED Clinical Summary Person Information [facility] Age: 39 Years : 1985 Sex: Female Language: Jordanian PCP: NONE, XXXX Marital Status: MRN: [id number] Visit Id: Visit Reason: Mouth pain; Dental [...] 01:00:19 ADDRESS: [address] [place] [id number] PHYS DOC NOTES: MEDICAL INFORMATION: Prescriptions Given: New Medications [id number], [address], [place] [id number], [phone] amoxicillin-clavulanat e (Augmentin 875 mg-125 mg Tab) [...] Pain Follow up: With: Address: When: Dental: [facility] [phone] In 3 days 02/16/2024 With: Address: When: Dental: [phone] In 3 days 02/16/2024 With: Address: When: Dental: [facility] [phone] In 3 days 02/16/2024 DIAGNOSIS: Pain, dental Normal [facility] ED Note-Physicianon 02-13-20 ED Note-Physician ED [...] and was given a short prescription for [place] which she is also taking but states [...] and Complexity of Problems Differential Diagnosis: [] [facility] Data External documents reviewed: N/A [...] already taking oral Toradol as well as [place]. We discussed using lidocaine and bupivacaine soaked [...] for 7 day(s), 14 tab(s), Refill(s) 0, [id number], 165.1, cm, 02/13/24 0:28:00 [...] q12hr Follow-up With When Contact Information Dental: [facility] [phone] In 3 days 02/16/2024 EDT Additional Instructions: Dental: [facility] [phone] In 3 days 02/16/2024 EDT Additional Instructions: Dental: [facility] [phone] In 3 days 02/16/2024 EDT Additional Instructions: [...] Diagnostic Results No qualifying data available. Normal [facility] Comment on above: Result Comment: Elec tronically Signed By: Ritesh Heath DO\.br\Date and Time Signed: 02/13/24 00:51 EDT ED Patient Summaryon 024 ED Patient Summary ED Patient Summary [place] [id number] Patient Discharge Instructions Person Information Name: ANTONIA NOYOLA Age: 39 Years Arrival Date: 02/13/2024 00:20:34 Discharge Diagnosis: Pain, dental Primary Care Physician: NONE, XXXX Provider Information Primary Provider: Ritesh Heath DO Advanced [employer] Press Operator:None The exam and treatment you received in the Emergency Department were for an urgent problem and are not intended as complete care. It is important that you follow up with a doctor, nurse practitioner, or physician?s front end assistant for ongoing care. If your symptoms become worse or you do not improve as expected and you are unable to reach your usual health care provider, you should return to the Emergency Department. We are available 24 hours a day. ANTONIA NOYOLA has been given the following list of patient education materials, prescriptions and follow-up instructions: Follow-up Instructions: With: Address: When: Dental: [facility] [phone] In 3 days 02/16/2024 With: Address: When: Dental: [facility] [employer] [phone] In 3 days 02/16/2024 With: Address: When: Dental: [facility] [phone] In 3 days 02/16/2024 In the event that this physician does not participate in your insurance network, please consult with your insurance company to find a nearby participating provider. Patient Education Materials: Dental Pain A MESSAGE TO ALL PATIENTS REGARDING OPIOIDS PRESCRIPTION OPIOIDS: WHAT YOU NEED TO KNOW Prescription opioids can be used to help relieve qxamiwlh-yf-mqjkeh pain and are often prescribed following a [...] care professi (more content not included)... Normal [facility] C REACTIVE PROTEINon 024 CRP [Mass/Vol] mg/L Normal 0.000-0.744 [facility] Comment on above: Performed By: #### C HEATH CMP #### [facility] ([id number]) [address] [place] [address] 89981 CBC AND AUTO DIFFon 01-27-20 24 ABSOLUTE BASOPHIL 0.1 X10E9/L Normal 0.0-0.2 [facility] Comment on above: Performed By: #### C STEVE JOE, 3040-3, , #### [facility] ([id number]) [address] [place] [address] [phone] ABSOLUTE NEUTROPHIL 4.6 X10E9/L Normal 1.5-6.6 [facility] Comment on above: Performed By: #### C HEATH CMP, 3040-3, 35486-9, #### [facility] ([id number]) [address] [place] [address] 36496 Basophils/100 WBC (Bld) 1.0 % Normal P [facility] Comment on above: Performed By: #### C HEATH CMP, 3040-3, , 1985-10, #### [facility] ([id number]) [address] [place] [address] 11984 Eosinophils (Bld) [#/Vol] 0.1 10*3/uL Normal 0.0-0.4 [facility] Comment on above: Performed By: #### C HEATH, [facility], 3039-08, , 1985-10, #### [facility] ([id number]) [address] [place] [address] 91147 Eosinophils/100 WBC (Bld) 1.8 % Normal [facility] Comment on above: Performed By: #### C HEATH, [facility], 3039-08, , 1985-10, #### [facility] ([id number]) [address] [place] [address] 67146 Erythrocyte distribution width (RBC) [Ratio] 17.1 % High 11.5-15.0 [facility] Comment on above: Performed By: #### C HEATH, [facility], 3039-08, , 1985-10, #### [facility] ([id number]) [address] [place] [address] 59592 Hematocrit (Bld) [Volume fraction] 34.8 % Low 35-47 [facility] Comment on above: Performed By: #### C BCA, CMP, 3039-08, , 1985-10, #### [facility] ([id number]) [address] [place] [address] 77550 Hemoglobin (Bld) [Mass/Vol] 10.9 g/dL Low 11.7-15.5 [facility] Comment on above: Performed By: #### C HEATH, CMP, 3039-08, , 1985-10, #### [facility] ([id number]) [address] [place] [address] 43770 Lymphocytes (Bld) [#/Vol] 1.9 10*3/uL Normal 1.0-3.5 [facility] Comment on above: Performed By: #### C HEATH, [facility], 0-3, 06427-4, 1985-10, #### [facility] ([id number]) [address] [place] [address] 91266 Lymphocytes/100 WBC (Bld) 26.4 % Normal [facility] Comment on above: Performed By: #### C HEATH, [facility], 3039-, , 1985-10, #### [facility] ([id number]) [address] [place] [address] 76689 MCH (RBC) [Entitic mass] 22.7 pg Low 27-34 [facility] Comment on above: Performed By: #### C HEATH, [facility], 3039-3, , 1985-10, #### [facility] ([id number]) [address] [place] [address] 00591 MCHC (RBC) [Mass/Vol] 31.3 g/dL Low 32-36 [facility] Comment on above: Performed By: #### Leila JOE, [facility], 3039-3, , 1985-10, #### [facility] ([id number]) [address] [place] [address] 93267 MCV (RBC) [Entitic vol] 72 fL Low 80-100 P [facility] Comment on above: Performed By: #### Leila JOE, [facility], 3039-, , 1985-10, #### [facility] ([id number]) [address] [place] [address] 84349 Monocytes (Bld) [#/Vol] 0.4 10*3/uL Normal 0-0.9 [facility] Comment on above: Performed By: #### C BCA, CMP, 3040-3, 27428-8, 1985-10, #### [facility] ([id number]) [address] [place] [address] 20617 Monocytes/100 WBC (Bld) 5.8 % Normal [facility] Comment on above: Performed By: #### C BCA, CMP, 3040-3, 93782-8, 1985-10, #### [facility] ([id number]) [address] [place] [address] 56410 Neutrophils/100 WBC (Bld) 65.0 % Normal [facility] Comment on above: Performed By: #### C BCA, CMP, 3040-3, , 1985-10, #### [facility] ([id number]) [address] [place] [address] 79199 Platelet mean volume (Bld) [Entitic vol] 7.6 fL Normal 7-12 [facility] Comment on above: Performed By: #### C BCA, CMP, 3040-3, 93843-1, 1985-10, #### [facility] ([id number]) [address] [place] [address] 58648 Platelets (Bld) [#/Vol] 532 10*3/uL High 150-450 [facility] Comment on above: Performed By: #### C BCA, CMP, 3040-3, 93676-0, 1985-10, #### [facility] ([id number]) [address] [place] [address] 70589 RBC COUNT 4.80 X10E12/L Normal 3.80-5.20 [facility] Comment on above: Performed By: #### C BCA, CMP, 3040-3, 51069-2, 1985-10, #### [facility] ([id number]) [address] [place] [address] 65137 WBC (Bld) [#/Vol] 7.0 10*3/uL Normal 4.0-11.0 [facility] Comment on above: Performed By: #### C HEATH, CMP, 0-3, 49530-3, 1985-10, #### [facility] ([id number]) [address] [place] [address] 95791 CHLAMYDIA/GC BY PCRon 2023 CHLAMYDIA/GC BY PCR [...] are dependent on adequate specimen collection. Normal [facility] Comment on above: Performed By: #### C HEATH, CMP #### [facility] ([id number]) [address] [place] [address] 50988 COMPREHENSIVE METABOLIC PANE Van 01-27-2024 Albumin [Mass/Vol] 4.3 g/dL Normal 3.2-5.3 [facility] Comment on above: Performed By: #### C HEATH CMP, 0-3, 55481-5, 1985-10, #### [facility] ([id number]) [address] [place] [address] 38885 ALP [Catalytic activity/Vol] 76 U/L Normal 39-130 [facility] Comment on above: Performed By: #### C HEATH, CMP, 3040-3, 21736-1, 1985-10, #### [facility] ([id number]) [address] [place] [address] 84122 ALT [Catalytic activity/Vol] 28 U/L Normal 0-31 [facility] Comment on above: Performed By: #### C BCA, CMP, 3040-3, 51130-6, 1985-10, #### [facility] ([id number]) [address] [place] [address] 48190 Anion gap [Moles/Vol] 7 mmol/L Normal 5-15 [facility] [facility] Comment on above: Performed By: #### C BCA, CMP, 3040-3, 18435-1, 1987-10, #### [facility] ([id number]) [address] [place] [address] 85685 AST [Catalytic activity/Vol] 20 U/L Normal 0-41 [facility] [place] Comment on above: Performed By: #### C BCA, CMP, 3040-3, 48257-1, 1987-10, #### [facility] ([id number]) [address] [place] [address] 74959 Bilirubin [Mass/Vol] 1.0 mg/dL Normal 0.3-1.2 [facility] Comment on above: Performed By: #### C BCA, CMP, 3040-3, 16337-9, 1987-10, #### [facility] ([id number]) [address] [place] [address] 25833 Calcium [Mass/Vol] 9.0 mg/dL Normal 8.5-10.5 [facility] Comment on above: Performed By: #### C BCA, CMP, 3040-3, 04541-1, 1987-10, #### [facility] ([id number]) [address] [place] [address] 61361 Chloride [Moles/Vol] 102 mmol/L Normal 98-109 [facility] Comment on above: Performed By: #### C BCA, CMP, 3040-3, 81196-9, 1987-10, #### [facility] ([id number]) [address] [place] [address] CO2 [Moles/Vol] 22 mmol/L Normal 22-32 [facility] [place] Comment on above: Performed By: #### C STEVE JOE, 3040-3, 58340-2, 1987-10, #### [facility] ([id number]) [address] [place] [address] 19941 Creatinine [Mass/Vol] 0.76 mg/dL Normal 0.40-1.00 [facility] Comment on above: Result Comment: METH OD TRACEABLE TO IDMS STANDARD Performed By: #### C STEVE JOE, 3039-3, , 1987-10, #### [facility] ([id number]) [address] [place] [address] 51484 eGFR (CKD-EPI) NON-RACE DEPENDENT >90 Normal >59 [facility] [place] Comment on above: Result Comment: Reported eGFR is based on the CKD-EPI 2020 equation that does not use a race coefficient. Performed By: #### C STEVE JOE, 0-3, , 1987-10, #### [facility] ([id number]) [address] [place] [address] 15484 Glucose [Mass/Vol] 109 mg/dL High 65-99 [facility] Comment on above: Performed By: #### C STEVE JOE, 0-3, , 1987-10, #### [facility] ([id number]) [address] [place] [address] 91860 Potassium [Moles/Vol] 4.1 mmol/L Normal 3.5-5.0 [facility] Comment on above: Performed By: #### C STEVE JOE, 3040-3, 05418-3, 1987-10, #### [facility] ([id number]) [address] [place] [address] 22992 Protein [Mass/Vol] 8.2 g/dL High 6.0-8.0 [facility] Comment on above: Performed By: #### C HEATH, [facility], 3040-3, 99652-3, 1987-10, #### [facility] ([id number]) [address] [place] [address] 62431 Sodium [Moles/Vol] 131 mmol/L Low 134-146 [facility] Comment on above: Performed By: #### C HEATH, [facility], 3040-3, 89838-4, 1987-10, #### [facility] ([id number]) [address] [place] [address] 25457 Urea nitrogen [Mass/Vol] 6 mg/dL Normal 5-23 [facility] [place] Comment on above: Performed By: #### C HEATH, [facility], 3040-3, 39859-7, 1987-10, #### [facility] ([id number]) [address] [place] [address] 39864 HCG ( test) Ql (U)o n 01-27-2024 Beta HCG ( test) Ql (U) Negative Normal NEG [facility] [place] Comment on above: Performed By: #### 2 106-3 #### [facility] ([id number]) [address] [place] [address] 29312 LIPASEon 01-27-2024 Lipase [Catalytic activity/Vol] 33 U/L Normal 17-40 [facility] [place] Comment on above: Performed By: #### C HEATH, CMP #### [facility] ([id number]) [address] [place] [address] 07881 Lactate (P arely) [Moles/Vol]o n 01-27-2024 LACTATE W/REFLEX 1.5 mmol/L Normal 0.4-2.0 [facility] Comment on above: Result Comment: Result did not trigger repeat Lactate, re-order if needed. Performed By: #### C BCA, CMP #### [facility] ([id number]) [address] [place] [address] 43622 MAGNESIUMon 01-27-2024 Magnesium [Mass/Vol] 2.0 mg/dL Normal 1.8-2.6 [facility] Comment on above: Performed By: #### C BCA, CMP #### [facility] ([id number]) [address] [place] [address] 85153 URINE CULTUREon 01-27-2024 Bacteria identified Cx Nom (U) CULTURE RESULTS <10,000 ORGANISMS/ML NORMAL URO GENITAL RASHID Normal [facility] [place] Comment on above: Performed By: #### C HAETH, CMP #### [facility] ([id number]) [address] [place] [address] 71993 URN MACROSCOPIC NURon 2023 BILIRUBIN AUDREY Negative Normal NEG [facility] [place] Comment on above: Performed By: #### N UM #### [facility] ([id number]) [address] [place] [address] 90859 BLOOD/HGB AUDREY Negative Normal NEG [facility] [place] Comment on above: Performed By: #### N UM #### [facility] ([id number]) [address] [place] [address] 26967 GLUCOSE ADUREY Negative Normal NEG [facility] Comment on above: Performed By: #### N UM #### [facility] ([id number]) [address] [place] [address] 47507 KETONES AUDREY Negative Normal NEG [facility] [place] Comment on above: Performed By: #### N UM #### [facility] ([id number]) [address] [place] [address] [place] [address] LEUKOCYTE ESTERASE AUDREY Negative Normal NEG [facility] Comment on above: Performed By: #### N UM #### [facility] ([id number]) [address] [place] [address] 83518 NITRITE AUDREY Negative Normal NEG [facility] Comment on above: Performed By: #### N UM #### [facility] ([id number]) [address] [place] [address] 06384 PH AUDREY 8.5 Normal 5.0-8.5 [facility] Comment on above: Performed By: #### N UM #### [facility] ([id number]) [address] [place] [address] 39677 PROTEIN AUDREY Negative Normal NEG [facility] Comment on above: Performed By: #### N UM #### [facility] ([id number]) [address] [place] [address] 02264 SPECIFIC GRAVITY AUDREY 1.015 Normal 1.003-1.035 [facility] Comment on above: Performed By: #### N UM #### [facility] ([id number]) [address] [place] [address] 04160 UROBILINOGEN AUDREY 0.2 eu/dL Normal <1.1 [facility] Comment on above: Performed By: #### N UM #### [facility] ([id number]) [address] [place] [address] 53366 US PELVIC WITH TRANSVAGINAL AND DUPLEXon 01-27-2024 [...] Nixon MD on 01/27/2024 2:39 PM Normal [facility] VAGINITIS PANEL PCRon 2023 VAGINITIS PANEL PCR [...] to determine patient diagnosis. Normal [facility] Comment on above: Performed By: #### C HEATH, [facility] #### [facility] ([id number]) [address] [place] [address] [place] [address] [address] sinus wo conon 11-25-2023 CT sinus wo con [facility] [address] [place] [address] [place] [address] CT Scan Report Signed Patient: Antonia Noyola MR#: [id number] [id number] : 1985 Acct:[id number] Age/Sex: 38 / F ADM Date: 11/25/23 Loc: CT Room: Type: [facility] Attending Dr: Jennifer Duran DO Copies [...] Davi Figueroa M.D.11/25/2023 4:01 PM Dictation Location: [place] [address] Transcribed By: [facility] 11/25/23 1601 Dictated By: Davi Figueroa DO 11/25/23 1559 Signed By: 11/25/23 1601 Normal [facility] CBC AND AUTO DIFFon 10-25-19 ABSOLUTE BASOPHIL 0.1 X10E9/L Normal 0.0-0.2 [facility] Comment on above: Performed By: #### C BCA, CMP #### [facility] ([id number]) [address] [place] [address] ABSOLUTE NEUTROPHIL 4.1 X10E9/L Normal 1.5-6.6 [facility] Comment on above: Performed By: #### C HEATH, CMP #### [facility] ([id number]) [address] [place] [address] 28841 Basophils/100 WBC (Bld) 0.9 % Normal [facility] Comment on above: Performed By: #### C BCA, CMP #### [facility] ([id number]) [address] [place] [address] 49900 Eosinophils (Bld) [#/Vol] 0.0 10*3/uL Normal 0.0-0.4 [facility] [place] Comment on above: Performed By: #### C HEATH, CMP #### [facility] ([id number]) [address] [place] [address] 33934 Eosinophils/100 WBC (Bld) 0.1 % Normal [facility] Comment on above: Performed By: #### C HEATH, CMP #### [facility] ([id number]) [address] [place] [address] 67926 Erythrocyte distribution width (RBC) [Ratio] 17.9 % High 11.5-15.0 [facility] Comment on above: Performed By: #### C HEATH, CMP #### [facility] ([id number]) [address] [place] [address] 31466 Hematocrit (Bld) [Volume fraction] 34.6 % Low 35-47 [facility] Comment on above: Performed By: #### C BCA, CMP #### [facility] ([id number]) [address] [place] [address] 18129 Hemoglobin (Bld) [Mass/Vol] 11.1 g/dL Low 11.7-15.5 [facility] [place] Comment on above: Performed By: #### C BCA, CMP #### [facility] ([id number]) [address] [place] [address] 96386 Lymphocytes (Bld) [#/Vol] 1.5 10*3/uL Normal 1.0-3.5 [facility] [place] Comment on above: Performed By: #### C BCA, CMP #### [facility] ([id number]) [address] [place] [address] 04302 Lymphocytes/100 WBC (Bld) 25.6 % Normal [facility] [place] Comment on above: Performed By: #### C BCA, CMP #### [facility] ([id number]) [address] [place] [address] 59052 MCH (RBC) [Entitic mass] 23.1 pg Low 27-34 [facility] Comment on above: Performed By: #### C HEATH, CMP #### [facility] ([id number]) [address] [place] [address] 74295 MCHC (RBC) [Mass/Vol] 32.1 g/dL Normal 32-36 [facility] Comment on above: Performed By: #### C HEATH, CMP #### [facility] ([id number]) [address] [place] [address] 29470 MCV (RBC) [Entitic vol] 72 fL Low 80-100 P [facility] Comment on above: Performed By: #### C BCA, CMP #### [facility] ([id number]) [address] [place] [address] 51179 Monocytes (Bld) [#/Vol] 0.3 10*3/uL Normal 0-0.9 [facility] Comment on above: Performed By: #### C BCA, CMP #### [facility] ([id number]) [address] [place] [address] 85727 Monocytes/100 WBC (Bld) 5.3 % Normal [facility] Comment on above: Performed By: #### C BCA, CMP #### [facility] ([id number]) [address] [place] [address] 62517 Neutrophils/100 WBC (Bld) 68.1 % Normal [facility] Comment on above: Performed By: #### C BCA, CMP #### [facility] ([id number]) [address] [place] [address] 52547 Platelet mean volume (Bld) [Entitic vol] 7.7 fL Normal 7-12 [facility] [place] Comment on above: Performed By: #### C BCA, CMP #### [facility] ([id number]) [address] [place] [address] 21596 Platelets (Bld) [#/Vol] 532 10*3/uL High 150-450 [facility] [place] Comment on above: Performed By: #### C HEATH, CMP #### [facility] ([id number]) [address] [place] [address] 82582 RBC COUNT 4.82 X10E12/L Normal 3.80-5.20 [facility] [place] Comment on above: Performed By: #### C BCA, CMP #### [facility] ([id number]) [address] [place] [address] 34748 WBC (Bld) [#/Vol] 6.0 10*3/uL Normal 4.0-11.0 [facility] Comment on above: Performed By: #### C BCA, CMP #### [facility] ([id number]) [address] [place] [address] 40257 COMPREHENSIVE METABOLIC PANE [facility] 10-25-2023 Albumin [Mass/Vol] 4.7 g/dL Normal 3.2-5.3 [facility] Comment on above: Performed By: #### C BCA, CMP #### [facility] ([id number]) [address] [place] [address] 03387 ALP [Catalytic activity/Vol] 67 U/L Normal 39-130 [facility] Comment on above: Performed By: #### C BCA, CMP #### [facility] ([id number]) [address] [place] [address] [place] [address] ALT [Catalytic activity/Vol] 23 U/L Normal 0-31 [facility] [place] Comment on above: Performed By: #### C BCA, CMP #### [facility] ([id number]) [address] [place] [address] 81930 Anion gap [Moles/Vol] 11 mmol/L Normal 5-15 [facility] Comment on above: Performed By: #### C BCA, CMP #### [facility] ([id number]) [address] [place] [address] 10825 AST [Catalytic activity/Vol] 20 U/L Normal 0-41 [facility] Comment on above: Performed By: #### C BCA, CMP #### [facility] ([id number]) [address] [place] [address] 60090 Bilirubin [Mass/Vol] 1.0 mg/dL Normal 0.3-1.2 [facility] Comment on above: Performed By: #### C BCA, CMP #### [facility] ([id number]) [address] [place] [address] 38570 Calcium [Mass/Vol] 9.6 mg/dL Normal 8.5-10.5 [facility] Comment on above: Performed By: #### C BCA, CMP #### [facility] ([id number]) [address] [place] [address] 70306 Chloride [Moles/Vol] 106 mmol/L Normal 98-109 [facility] Comment on above: Performed By: #### C BCA, CMP #### [facility] ([id number]) [address] [place] [address] 96160 CO2 [Moles/Vol] 20 mmol/L Low 22-32 [facility] Comment on above: Performed By: #### C BCA, CMP #### [facility] ([id number]) [address] [place] [address] 45766 Creatinine [Mass/Vol] 0.59 mg/dL Normal 0.40-1.00 [facility] Comment on above: Result Comment: METH OD TRACEABLE TO IDMS STANDARD Performed By: #### C BCA, CMP #### [facility] ([id number]) [address] [place] [address] 12235 eGFR (CKD-EPI) NON-RACE DEPENDENT >90 Normal >59 [facility] Comment on above: Result Comment: Reported eGFR is based on the CKD-EPI 2020 equation that does not use a race coefficient. Performed By: #### C BCA, CMP #### [facility] ([id number]) [address] [place] [address] 11182 Glucose [Mass/Vol] 124 mg/dL High 65-99 [facility] Comment on above: Performed By: #### C BCA, CMP #### [facility] ([id number]) [address] [place] [address] 41284 Potassium [Moles/Vol] 3.5 mmol/L Normal 3.5-5.0 [facility] Comment on above: Performed By: #### C BCA, CMP #### [facility] ([id number]) [address] [place] [address] 93943 Protein [Mass/Vol] 8.7 g/dL High 6.0-8.0 [facility] Comment on above: Performed By: #### C BCA, CMP #### [facility] ([id number]) [address] [place] [address] 59180 Sodium [Moles/Vol] 137 mmol/L Normal 134-146 [facility] Comment on above: Performed By: #### C BCA, CMP #### [facility] ([id number]) [address] [place] [address] 65520 Urea nitrogen [Mass/Vol] 6 mg/dL Normal 5-23 [facility] Comment on above: Performed By: #### C BCA, CMP #### [facility] ([id number]) [address] [place] [address] ABDOMEN AND PELVIS W CONT on [...] Fisher MD on 10/25/2023 7:39 PM Normal [facility] HCG ( test) Ql (U)o n 10-25-2023 Beta HCG ( test) Ql (U) Negative Normal NEG [facility] Comment on above: Performed By: #### 2 106-3 #### [facility] ([id number]) [address] [place] [address] 77646 URN MACROSCOPIC NURon 2023 BILIRUBIN AUDREY Negative Normal NEG [facility] Comment on above: Performed By: #### N UM #### [facility] ([id number]) [address] [place] [address] 73493 BLOOD/HGB AUDREY Negative Normal NEG [facility] Comment on above: Performed By: #### N UM #### [facility] ([id number]) [address] [place] [address] 95298 GLUCOSE AUDREY Negative Normal NEG [facility] Comment on above: Performed By: #### N UM #### [facility] ([id number]) [address] [place] [address] 14126 KETONES AUDREY 15 mg/dL Abnormal NEG [facility] Comment on above: Performed By: #### N UM #### [facility] ([id number]) [address] [place] [address] 27075 LEUKOCYTE ESTERASE AUDREY Trace Abnormal NEG [facility] Comment on above: Performed By: #### N UM #### [facility] ([id number]) [address] [place] [address] 18144 NITRITE AUDREY Negative Normal NEG [facility] Comment on above: Performed By: #### N UM #### [facility] ([id number]) [address] [place] [address] 16846 PH AUDREY 7.0 Normal 5.0-8.5 [facility] Comment on above: Performed By: #### N UM #### [facility] ([id number]) [address] [place] [address] 58457 PROTEIN AUDREY Negative Normal NEG [facility] Comment on above: Performed By: #### N UM #### [facility] ([id number]) [address] [place] [address] 41472 SPECIFIC GRAVITY AUDREY 1.020 Normal 1.003-1.035 [facility] Comment on above: Performed By: #### N UM #### [facility] ([id number]) [address] [facility], [place] [address] UROBILINOGEN AUDREY 1.0 eu/dL Normal <1.1 [facility] Comment on above: Performed By: #### N UM #### [facility] ([id number]) [address] [facility], [place] [address] US PELVIC WITH TRANSVAGINAL AND DUPLEXon 10-25-2023 [...] Singh MD on 10/25/2023 6:17 PM Normal [facility] C Urineon 10-02-2023 Bacteria identified Cx Nom (U) Microbiology PROCEDURE: Urine Culture [R1] SOURCE: U CleanCatch BODY SITE: COLLECTED DATE/TIME: 09/30/2023 00:08 EDT RECEIVED DATE/TIME: 09/30/2023 00:24 EDT START DATE/TIME: 09/30/2023 00:24 EDT FREE TEXT SOURCE: Ritesh Haeth DO, DO, Noah S. FINAL REPORTS Final Report [] Verified Date/Time: 10/02/2023 07:19 EDT 4,000 cfu/ml Mixed skin contaminants Performing Locations R1: This test was performed at: [facility], [address] [place] [address], [address]- , , Normal [facility] Comment on above: Performed By: #### 2 [id number] #### [facility] [address] [place] [address] 85683 BMPon 09-30-2023 Anion gap [Moles/Vol] 13 mmol/L Normal 6-16 [facility] Comment on above: Performed By: #### 2 930798, 5559056, 17165674, 8684137, 9559875 ####[facility] [address] [place] [address] Calcium [Mass/Vol] 9.1 mg/dL Normal 8.9-11.1 [facility] Comment on above: Performed By: #### 2 855821, 2293032, 00099701, 8392601, 0768298 ####[place] [address] [place] [address] Chloride [Moles/Vol] 105 mmol/L Normal 101-111 [facility] Comment on above: Performed By: #### 2 140660, 1236651, 15302772, 7625596, 0700091 ####[facility] [address] [place] [address] CO2 [Moles/Vol] 23 mmol/L Normal 21-31 [facility] Comment on above: Performed By: #### 2 222929, 9643005, 24632160, 2586884, 0374138 ####[place] [place] [address] Creatinine [Mass/Vol] 0.8 mg/dL Normal 0.5-1.3 [facility] Comment on above: Performed By: #### 2 823378, 8253004, 69228102, 5794002, 5681454 ####[facility] [address] [place] [address] Glucose [Mass/Vol] 95 mg/dL Normal 55-199 [facility] Comment on above: Performed By: #### 2 936900, 6282126, 59724344, 4274320, 6484686 ####[facility] [address] [place] [address] Potassium [Moles/Vol] 3.1 mmol/L Low 3.5-5.3 [facility] Comment on above: Performed By: #### 2 329720, 7919697, 07798981, 9240111, 2177598 ####[facility] [address] [place] [address] Sodium [Moles/Vol] 138 mmol/L Normal 135-145 [facility] Comment on above: Performed By: #### 2 004642, 7988314, 77338027, 7145541, 4302936 ####[facility] [address] [place] [address] Urea nitrogen [Mass/Vol] 7 mg/dL Normal 5-21 [facility] Comment on above: Performed By: #### 2 632137, 8397407, 84907434, 1106755, 7323944 ####[facility] [address] [place] [address] Urea nitrogen/Creatinine [Mass ratio] 9 No Units Low 10-20 [facility] Comment on above: Performed By: #### 2 744356, 0393884, 04892205, 9953581, 6486342 ####[facility] [address] [place] [address] CBC w/ Auto Diffon 4 Basophils/100 WBC (Bld) 0.3 % Normal 0.0-2.0 F [facility] Comment on above: Performed By: #### 2 685045, 7375179, 37123442, 7470904, 8331237 ####[address] [address] Basophils/Leukocytes Auto (Bld) [Pure # fraction] 0.0 E9/L Normal 0.0-0.2 [facility] Comment on above: Performed By: #### 2 343680, 0799480, 27683406, 8895463, 2347168 ####[address] [address] Eosinophils (Bld) [#/Vol] 0.0 E9/L Normal 0.0-0.5 [facility] Comment on above: Performed By: #### 2 653241, 5516524, 70670768, 0202428, 2609317 ####[address] [address] Eosinophils/100 WBC (Bld) 0.4 % Normal 0.0-8.0 [facility] Comment on above: Performed By: #### 2 460667, 3584602, 97370925, 1217701, [id number] ####[address] [address] Erythrocyte distribution width (RBC) [Ratio] 18.3 % High 10.9-14.2 [facility] Comment on above: Performed By: #### 2 [id number], [id number], [id number], [id number], [id number] ####[address] [address] Hematocrit (Bld) [Volume fraction] 32.6 % Low 34.0-46.0 [facility] Comment on above: Performed By: #### 2 [id number], [id number], [id number], [id number], [id number] ####[address] [address] Hemoglobin (Bld) [Mass/Vol] 10.3 g/dL Low 12.0-16.0 [facility] Comment on above: Performed By: #### 2 002211, 1065374, 81446047, 4383283, 1554227 ####[facility] [address] [place] [address] Lymphocytes (Bld) [#/Vol] 4.1 E9/L High 1.0-4.0 [facility] Comment on above: Performed By: #### 2 831074, 2844937, 96735857, 8530860, 4552294 ####[facility] [address] [place] [address] Lymphocytes/100 WBC (Bld) 39.5 % Normal 14.0-50.0 [facility] Comment on above: Performed By: #### 2 535241, 5222962, 74309587, 0914192, 0061542 ####[address] [address] MCH (RBC) [Entitic mass] 23.7 pg Low 27.0-34.0 [facility] Comment on above: Performed By: #### 2 120567, 4892069, 91590036, 2140446, 1793720 ####[facility] [address] [place] [address] MCHC (RBC) [Mass/Vol] 31.7 g/dL Normal 31.4-36.0 [facility] Comment on above: Performed By: #### 2 004108, 0297732, 07333100, 2038676, 8927248 ####[facility] [address] [place] [address] MCV (RBC) [Entitic vol] 74.9 fL Low 80.0-100.0 [facility] Comment on above: Performed By: #### 2 513318, 6988870, 93564115, 5846160, 1743388 ####[facility] [address] [place] [address] Monocytes (Bld) [#/Vol] 0.7 E9/L Normal 0.2-1.0 [facility] Comment on above: Performed By: #### 2 381493, 7255780, 39233650, 3189800, 2108791 ####[place] [address] [place] [address] Neutrophils (Bld) [#/Vol] 5.4 E9/L Normal 2.0-7.5 [facility] Comment on above: Performed By: #### 2 756861, 0048455, 67025572, 8004593, 9227947 ####[address] [address] Neutrophils/100 WBC (Bld) 53.1 % Normal 36.0-75.0 [facility] Comment on above: Performed By: #### 2 993753, 6017146, 14658079, 9227615, 6863708 ####[address] [address] Platelet 476.0 E9/L Normal 150.0-500.0 [facility] Comment on above: Performed By: #### 2 994645, 9959663, 35406929, 9646591, 8240512 ####[address] [address] Platelet mean volume (Bld) [Entitic vol] 7.7 fL Normal 6.4-10.8 [facility] Comment on above: Performed By: #### 2 154167, 4486252, 04213908, 2148244, 3694910 ####[address] [address] RBC (Bld) [#/Vol] 4.3 E12/L Normal 4.3-5.9 [facility] Comment on above: Performed By: #### 2 923967, 8850644, 05961902, 7648351, 5070681 ####[address] [address] WBC corrected for nucl RBC Auto (Bld) [#/Vol] 10.3 E9/L Normal 4.0-11.0 [facility] Comment on above: Performed By: #### 2 741570, 0850656, 43688241, 4396344, 5549577 ####[facility] [address] [place] [address] CHEMISTRYOrdered By: SYSTEM SYSTEM on 09-30-2023 Albumin [...] Remisol Chem Discharge Instructionson Discharge Instructions [id number]. [id number] Normal [facility] ED Clinical Summaryon 2023 ED Clinical Summary [place] [id number] ED Clinical Summary Person Information Name: ANTONIA NOYOLA/[facility] Age: 38 Years : 1985 Sex: Female Language: Jordanian PCP: NONE, XXXX Marital Status: Visit Id: [...] 02:15:05 ADDRESS: [address] [place] [id number] PHYS DOC NOTES: MEDICAL INFORMATION: Prescriptions Given: [...] Cyst Follow up: With: Address: When: Rose [address], [address], [place] [address] Business (1) In 3 days 10/03/2023 DIAGNOSIS: AP (abdominal pain); Ovarian cyst Normal [facility] ED Note-Physicianon 04-19-20 24 ED Note-Physician Basic Information Time Seen: Ritesh [...] taking oral tramadol, Toradol, Bentyl, and a [place] at home and has had no significant relief. She does have some nausea but no vomiting. No change in bowel movements. No urinary symptoms. She reports that she has had multiple ovarian cysts and did schedule a FITNESS TECHNICIAN appointment for possible hysterectomy but that [...] and Complexity of Problems Differential Diagnosis: [] [facility] Data External documents reviewed: N/A [...] of 3.1 but is otherwise overall reassuring. technical editor reports that the ovarian cyst on the [...] the information for Dr. Royal and another FITNESS TECHNICIAN in the area to see if [...] mg/2 mL (more content not included)... Normal [facility] Comment on above: Result Comment: Elec [...] Follow these instructions at home: ? Take rilg-gle-qmgllmm and prescription medicines only as told by [...] Reviewed: 11/06/2020 Elsevier Patient Education ? 2022 [employer]. Normal [facility] ED Patient Summaryon 024 ED Patient Summary [address] [address] Patient Discharge Instructions Person Information Name: ANTONIA NOYOLA Age: 38 Years Arrival Date: 09/29/2023 23:38:37 Discharge Diagnosis: AP (abdominal pain); Ovarian cyst Primary Care Physician: NONE, XXXX Provider Information Primary Provider: Ritesh Heath DO Advanced Die Press Operator:Shazia The exam and treatment you received in the Emergency Department were for an urgent problem and are not intended as complete care. It is important that you follow up with a doctor, nurse practitioner, or physician?s front end assistant for ongoing care. If your symptoms [...] Follow-up Instructions: With: Address: When: Rose Royal [address] [place] [address] Business (1) In 3 days 10/03/2023 In the event that this physician does not participate in your insurance network, please consult with your insurance company to find a nearby participating provider. Patient Education Materials: Ovarian Cyst A MESSAGE TO ALL PATIENTS REGARDING OPIOIDS PRESCRIPTION OPIOIDS: WHAT YOU NEED TO KNOW Prescription opioids can be used to help relieve xxjeawew-on-nragrz pain and are often prescribed following a [...] be struggling with addiction, tell your health wound care physician and ask for guidance or call [facility]?S National Helpline at 7-974-046-CXGP. h Source: [place] Department o (more content not included)... Normal [facility] HEMATOLOGYOrdered By: SYSTEM SYSTEM on 09-30-2023 [...] 09-30-2023 Albumin [Mass/Vol] 4.4 g/dL Normal 3.3-5.0 [facility] Comment on above: Performed By: #### 2 785479, 8740519, 83387898, 7634965, 5328974 ####[facility] [address] [place] [address] Albumin/Globulin (S) [Mass conc ratio] 1.5 Normal 1.1-2.2 [facility] Comment on above: Performed By: #### 2 968419, 4767204, 34941103, 1895351, 4188176 ####[facility] [address] [place] [address] ALP [Catalytic activity/Vol] 64 Int._Unit/L Normal 21-98 [facility] Comment on above: Performed By: #### 2 054427, 5910776, 67268710, 1790589, 3689408 ####[facility] [address] [place] [address] ALT No additional P-5'-P [Catalytic activity/Vol] 9 Int._Unit/L Normal 6-46 [facility] Comment on above: Performed By: #### 2 972464, 8091299, 46558876, 0142625, 5583329 ####[facility] [address] [place] 3540957 AST [Catalytic activity/Vol] 12 Int._Unit/L Normal 5-43 [facility] Comment on above: Performed By: #### 2 692897, 7782419, 50943170, 4091688, 9380705 ####[address] [address] Bilirubin [Mass/Vol] 0.2 mg/dL Normal 0.0-1.1 [facility] Comment on above: Performed By: #### 2 636539, 6796113, 51023440, 0494222, 1284438 ####[place] [address] Bilirubin.direct [Mass/Vol] 0.0 mg/dL Normal 0.0-0.4 [facility] Comment on above: Performed By: #### 2 982826, 8742192, 53372101, 5951669, 1634415 ####[place] [address] Bilirubin.indirect [Mass or moles/Vol] 0.2 mg/dL Normal 0.1-0.9 [facility] Comment on above: Performed By: #### 2 831071, 1065659, 93393241, 7170813, 7416084 ####[facility] [address] [place] [address] Globulin (S) [Mass/Vol] 3.0 g/dL Normal 1.4-4.0 [facility] Comment on above: Performed By: #### 2 350848, 0617078, 29721127, 1003772, 1623125 ####[facility] [address] [place] [address] Protein [Mass/Vol] 7.4 g/dL Normal 6.0-7.8 [facility] Comment on above: Performed By: #### 2 774515, 8014126, 08225163, 0518617, 7210195 ####[facility] [address] [place] [address] Lipase Levelon 09-30-2023 Lipase [Catalytic activity/Vol] 61 U/L High 13-58 [facility] Comment on above: Performed By: #### 2 961982, 2184715, 14480860, 6025457, 3824843 ####[facility] [address] [place] [address] SEROLOGYOrdered By: Ariadne Sheehan on 09-30-2023 HCG.beta subunit (U) [Moles/Vol] Negative Normal [facility] Man Sero U BetaHcg Qualon 09-30-2023 HCG.beta subunit (U) [Moles/Vol] Negative Normal [facility] Comment on above: Performed By: #### 2 7055326 ####[facility] [address] [place] [address] UA with Cult Rflxon 09-30-19 24 Bacteria Auto Ql (U) Trace Normal Trace Fish [facility] Comment on above: Performed By: #### 2 410111 #### [facility] [address] [place] [address] Bilirubin Ql (U) Negative Normal Negative [facility] Comment on above: Performed By: #### 2 548464 #### [facility] [address] [place] [address] Clarity (U) Clear Normal Clear [facility] Comment on above: Performed By: #### 2 940949 #### [facility] [address] [place] [address] Color (U) Light-Yellow Normal Yellow [facility] Comment on above: Result Comment: Micr oscopic readings are only performed on those samples that meet specific criteria set forth by [facility]. Performed By: #### 2 522472 #### [facility] [address] [place] [address] Epithelial cells.squamous Auto (Urine sed) [#/Area] 3-4 Abnormal 0-2 [facility] Comment on above: Performed By: #### 2 111505 #### [facility] [address] [place] [address] Glucose Ql (U) Negative Normal Negative [facility] Comment on above: Performed By: #### 2 899907 #### [facility] [address] [place] [address] Hemoglobin Auto test strip (U) [Mass/Vol] Trace Abnormal Negative [facility] Comment on above: Performed By: #### 2 010102 #### [facility] [address] [place] [address] Ketones Auto test strip Ql (U) Negative Normal Negative [facility] Comment on above: Performed By: #### 2 699538 #### [facility] [address] [place] [address] Leukocyte esterase Auto test strip Ql (U) 75 Bertrand/uL Abnormal Negative [facility] Comment on above: Performed By: #### 2 063223 #### [facility] [address] [place] [address] Mucus Auto Ql (U) Negative Normal Negative [facility] Comment on above: Performed By: #### 2 745216 #### [facility] [address] [place] [address] Nitrite Auto test strip Ql (U) Negative Normal Negative [facility] Comment on above: Performed By: #### 2 840997 #### [facility] [address] [place] [address] pH (U) 5.5 [pH] Invalid Interpretation Code 5.0-9.0 [facility] Comment on above: Performed By: #### 2 881066 #### [facility] [address] [place] [address] Protein Ql (U) Negative Normal Negative [facility] Comment on above: Performed By: #### 2 580413 #### [facility] [address] [place] [address] RBC Ql (U) 4-20 Abnormal 0-3 [facility] Comment on above: Performed By: #### 2 779539 #### [facility] [address] [place] [address] Specific gravity (U) [Rel density] 1.017 Invalid Interpretation Code 1.005-1.030 [facility] Comment on above: Performed By: #### 2 938836 #### [facility] [address] [place] [address] Urobilinogen (U) [Mass/Vol] Negative Normal Negative [facility] Comment on above: Performed By: #### 2 854670 #### [facility] [address] [place] [address] WBC Auto (Urine sed) [#/Area] 0-5 Normal 0-5 [facility] Comment on above: Performed By: #### 2 999896 #### [facility] [address] [place] [address] URINALYSISOrdered By: SYSTEM SYSTEM on 09-30-2023 Bacteria Auto Ql (U) Trace graded/HPF Normal Tra cegraded /HPF [facility] UA Auto SS Bilirubin Ql (U) Negative Normal Negativemg/ dL [facility] UA Auto SS Clarity (U) Clear (09/30/23 12:08 AM) Normal Clear [facility] UA Auto SS Color (U) Light-Yellow 1 (09/30/23 12:08 AM) Normal Yellow [facility] UA Auto SS Comment on above: Interpretive Data: M icroscopic readings are only performed on those samples that meet specific criteria set forth by [facility]. Epithelial cells.squamous Auto (Urine sed) [#/Area] 3-4 graded/HPF Invalid Interpretation Code 0-2graded/H PF [facility] UA Auto SS Glucose Ql (U) Negative Normal Negativemg/ dL [facility] UA Auto SS Hemoglobin Auto test strip [...] Normal Negativemg/ dL [facility] UA Auto SS WBC Auto (Urine sed) [#/Area] 0-5 graded/HPF Normal 0-5graded/H PF [facility] UA Auto SS URINALYSISOrdered By: Ritesh bishop on 09-30-2023 UA Spec Desc Clean Catch (09/30/23 12:08 AM) Normal [facility] UA Auto SS Work Phone: US Doppler [...] MD Transcribed by: MILLIE Technologist: GERDA Miller [facility] US Pelvis Non-OB Completeon 09-30-2023 US [...] Signed by: Harvey Leslie MD Transcribed by: DP Technologist: GERDA Technical Comments Transabdominal Ultrasound Performed Transvaginal Ultrasound Performed Uterus Position Anteverted Normal [facility] US Transvaginal Non-OBon US Transvaginal Non-OB Exam Date/Time: 09/30/2023 02:03 EDT Reason for Exam: pssible torsion, known large cyst;Other (please specify) Report PLEASE SEE US Pelvis Non-OB Complete REPORT DATED: 09/30/2023. Ordering Provider: Ritesh Heath FINAL REPORT Dictated: 09/30/2023 4:11 am Harvey Leslie MD Signed (Electronic Signature): 09/30/2023 4:11 am Signed by: Harvey Leslie MD Transcribed by: MILLIE Technologist: GERDA Normal [facility] eGFRon 09-30-2023 eGFR 97 mL/min/1.73 m2 Normal >=59 [facility] Comment on above: Order Comment: Order added by Discern Expert. Performed By: #### 2 792805, 0230185, 83865437, 4454951, 7211231 ####[facility] [address] [place] [address] Consent for Treatmenton 09-11 Consent for Treatment [id number] 4040 [id number] 0TIFF Normal [facility] UA with Cult Rflxon 09-29-19 Type of Urine collection method Clean Catch Normal [facility] Comment on above: Performed By: #### 2 046230 #### [facility] [address] [place] [address] ED Clinical Summaryon 2023 ED Clinical Summary [address] [address] ED Clinical Summary Person Information [facility] Age[facility] 38 Years : 1985 Sex: Female Language: Jordanian PCP: NONE, XXXX Marital Status: Visit Id: [...] 09/26/2023 18:13:56 ADDRESS: [address] [place] [id number] PHYS DOC NOTES: MEDICAL INFORMATION: Prescriptions Given: New Medications [id number], [address], [place] [id number], [phone] diflunisal (diflunisal 500 mg Tab) 1 Tablets [...] INFORMATION: Instructions: Follow up: With: Address: When: [facility] [address] [address] Business (1) In 3 days 09/29/2023 With: Address: When: [facility], [address] [place] [address] [place] [address] Business (1) In 3 days 09/29/2023 With: Address: When: [facility] , [place] In 3 days DIAGNOSIS: Abdominal pain; Constipation; Ovarian cyst Normal [facility] ED Patient Education Noteon 09-27-2023 ED Patient Education Note Normal [facility] ED Patient Summaryon 024 ED Patient Summary [address] [address] Patient Discharge Instructions Person Information Name: ANTONIA NOYOLA Age: 38 Years Arrival Date: 09/26/2023 13:54:18 Discharge Diagnosis: Abdominal pain; Constipation; Ovarian cyst Primary Care Physician: NONE, XXXX Provider Information Primary Provider: Konstantin Penny DO Advanced Die Press Operator:None The exam and treatment you received in the Emergency Department were for an urgent problem and are not intended as complete care. It is important that you follow up with a doctor, nurse practitioner, or physician?s front end assistant for ongoing care. If your symptoms become worse or you do not improve as expected and you are unable to reach your usual health care provider, you should return to the Emergency Department. We are available 24 hours a day. ANTONIA NOYOLA has been given the following list of patient education materials, prescriptions and follow-up instructions: Follow-up Instructions: With: Address: When: [facility] [place] [address] [place] [address] Business (1) In 3 days 09/29/2023 With: Address: When: [facility], [address] [place] [address] [place] [address] Business (1) In 3 days 09/29/2023 With: Address: When: XXXX [facility] , [place] In 3 days In the event that this physician does not participate in your insurance network, please consult with your insurance company to find a nearby participating provider. Patient Education Materials: A MESSAGE TO ALL PATIENTS REGARDING OPIOIDS PRESCRIPTION OPIOIDS: WHAT YOU NEED TO KNOW Prescription opioids can be used to help relieve ccfdhgcd-nf-ekkwtb pain and are often prescribed following a [...] and overdose. (more content not included)... Normal [facility] B hCG Qualon 09-26-2023 Beta HCG ( test) Ql Negative Normal [facility] Comment on above: Order Comment: FER dubois attempting lab work from IV start per Pt request. Phleb on standby if unable to get labs, [id number] 09/26/2023 14:42:36 EDT Performed By: #### 2 2791675, 77558773, 5997739, 4711965, 7046399 ####[facility] [address] [place] [address] CBC w/ Auto Diffon 4 Anisocytosis Ql (Bld) PRESENT Invalid Interpretation Code [facility] Comment on above: Performed By: #### 2 1002680, 75417288, 9982186, 8258825, 3784643 ####[address] [address] Basophils/100 WBC (Bld) 0.8 % Normal 0.0-2.0 [facility] Comment on above: Performed By: #### 2 9854637, 62894316, 7262008, 4511003, 1440059 ####[address] [address] Basophils/Leukocytes Auto (Bld) [Pure # fraction] 0.1 E9/L Normal 0.0-0.2 [facility] Comment on above: Performed By: #### 2 2452036, 85123250, 4267288, 7995863, 4234279 ####[address] [address] Eosinophils (Bld) [#/Vol] 0.0 E9/L Normal 0.0-0.5 [facility] Comment on above: Performed By: #### 2 6639862, 90709435, 0888531, 4332915, 0368764 ####[address] [address] Eosinophils/100 WBC (Bld) 0.0 % Normal 0.0-8.0 [facility] Comment on above: Performed By: #### 2 4017055, 12019237, 3646827, 4260328, 2941172 ####[address] [address] Hypochromia Auto Ql (Bld) PRESENT Invalid Interpretation Code [facility] Comment on above: Performed By: #### 2 5172875, 18206264, 4662162, 6036166, 9875318 ####[address] [address] Lymphocytes (Bld) [#/Vol] 1.6 E9/L Normal 1.0-4.0 [facility] Comment on above: Performed By: #### 2 0915107, 30101234, 4124268, 3343934, 2873349 ####[address] [address] Lymphocytes/100 WBC (Bld) 22.7 % Normal 14.0-50.0 [facility] Comment on above: Performed By: #### 2 1587558, 64116220, 6248243, 8972721, 2725548 ####[address] [address] Microcytes Ql (Bld) PRESENT Invalid Interpretation Code [facility] Comment on above: Performed By: #### 2 2230350, 23790481, 6870435, 4562352, 5776053 ####[address] [address] Monocytes (Bld) [#/Vol] 0.3 E9/L Normal 0.2-1.0 [facility] Comment on above: Performed By: #### 2 7968134, 88893967, 7550983, 4967171, 0398481 ####[address] [address] Neutrophils (Bld) [#/Vol] 5.1 E9/L Normal 2.0-7.5 [facility] Comment on above: Performed By: #### 2 6283993, 85094272, 3117992, 6418805, 1910383 ####[address] [address] Neutrophils/100 WBC (Bld) 71.6 % Normal 36.0-75.0 [facility] Comment on above: Performed By: #### 2 3745632, 67479831, 9243236, 6908790, 3940398 ####[address] [address] Erythrocyte distribution width (RBC) [Ratio] 17.8 % High 10.9-14.2 [facility] Comment on above: Performed By: #### 2 6344336, 68011067, 4921844, 6710781, 2698235 ####[address] [place] [address] Hematocrit (Bld) [Volume fraction] 36.2 % Normal 34.0-46.0 [facility] Comment on above: Performed By: #### 2 3867308, 78179784, 8892473, 7310537, 2845439 ####[place] [address]257 Hemoglobin (Bld) [Mass/Vol] 11.2 g/dL Low 12.0-16.0 [facility] Comment on above: Performed By: #### 2 8562137, 52129913, 4685657, 2477572, 7973982 ####[place] 9827257 MCH (RBC) [Entitic mass] 23.2 pg Low 27.0-34.0 [facility] Comment on above: Performed By: #### 2 0269635, 11286417, 9024294, 1797867, 1410440 ####[place] [address]257 MCHC (RBC) [Mass/Vol] 31.0 g/dL Low 31.4-36.0 [facility] Comment on above: Performed By: #### 2 2595495, 62688640, 5010887, 4380248, 7281534 ####[place] [address]257 MCV (RBC) [Entitic vol] 74.9 fL Low 80.0-100.0 F [facility] Comment on above: Performed By: #### 2 2651613, 15040320, 3165597, 0351379, 2462109 ####[place] [address]257 Platelet mean volume (Bld) [Entitic vol] 7.5 fL Normal 6.4-10.8 [facility] Comment on above: Performed By: #### 2 2609846, 20757327, 7445541, 0183218, 8967694 ####[place] 9827257 Platelets (Bld) [#/Vol] 461.0 E9/L Normal 150.0-500.0 [facility] Comment on above: Performed By: #### 2 5245041, 01058127, 1427768, 1092405, 8171125 ####[facility] [address] [place] [address] RBC (Bld) [#/Vol] 4.8 E12/L Normal 4.3-5.9 [facility] Comment on above: Performed By: #### 2 2291313, 88538585, 0668304, 2967976, 7239488 ####[facility] [address] [place] [address] WBC corrected for nucl RBC Auto (Bld) [#/Vol] 7.1 E9/L Normal 4.0-11.0 [facility] Comment on above: Performed By: #### 2 6585162, 76224453, 8325988, 9133061, 4793000 ####[facility] [address] [place] [address] CHEMISTRYOrdered By: SYSTEM SYSTEM on 09-26-2023 Amphetamines [...] 09-26-2023 Albumin [Mass/Vol] 4.7 g/dL Normal 3.3-5.0 [facility] Comment on above: Performed By: #### 2 3492006, 21474130, 9129421, 3051172, 9832357 ####[facility] [address] [place] [address] Albumin/Globulin (S) [Mass conc ratio] 1.3 Normal 1.1-2.2 [facility] Comment on above: Performed By: #### 2 3251774, 03352037, 3401767, 4823926, 0062352 ####[facility] [address] [place] [address] ALP [Catalytic activity/Vol] 61 Int._Unit/L Normal 21-98 [facility] Comment on above: Performed By: #### 2 1496516, 01542153, 9911903, 3539071, 1620365 ####[facility] [address] [place] [address] ALT No additional P-5'-P [Catalytic activity/Vol] 11 Int._Unit/L Normal 6-46 [facility] Comment on above: Performed By: #### 2 8564210, 09990123, 4420740, 5291869, 8659214 ####[facility] [address]Nor[place] [place] [address] Anion gap [Moles/Vol] 15 mmol/L Normal 6-16 [facility] Comment on above: Performed By: #### 2 7738890, 71568211, 1687067, 6646328, 7624286 ####[facility] [address] [place] [address] AST [Catalytic activity/Vol] 16 Int._Unit/L Normal 5-43 [facility] Comment on above: Performed By: #### 2 9285057, 29833394, 2304694, 9622983, 8656722 ####[facility] [address] [place] [address] Bilirubin [Mass/Vol] 0.8 mg/dL Normal 0.0-1.1 [facility] Comment on above: Performed By: #### 2 [id number], [id number], 3174830, 2908223, 6644404 ####[facility] [address] [place] [address] Calcium [Mass/Vol] 9.7 mg/dL Normal 8.9-11.1 [facility] Comment on above: Performed By: #### 2 [id number], [id number], 9298812, 9797234, 8851554 ####[facility] [address] AveNorun[facility] [place] [address] Chloride [Moles/Vol] 107 mmol/L Normal 101-111 [facility] Comment on above: Performed By: #### 2 [id number], 05693194, 8848952, 5641709, 9480268 ####[facility] [address] AveNorun[facility] [place] [address] CO2 [Moles/Vol] 20 mmol/L Low 21-31 [facility] Comment on above: Performed By: #### 2 [id number], [id number], 1940261, 4045165, 2073116 ####[facility] [address] [place] [address] Creatinine [Mass/Vol] 0.7 mg/dL Normal 0.5-1.3 [facility] Comment on above: Performed By: #### 2 2222600, 29090880, 4353889, 2806438, 3265759 ####[facility] [address] [place] [address] Globulin (S) [Mass/Vol] 3.6 g/dL Normal 1.4-4.0 [facility] Comment on above: Performed By: #### 2 4379434, 74958210, 0557751, 7755345, 0541969 ####[facility] [address] [place] [address] Glucose [Mass/Vol] 120 mg/dL Normal 55-199 [facility] Comment on above: Performed By: #### 2 1353423, 75016259, 4689835, 6262468, 8776618 ####[facility] [address] [place] [address] Potassium [Moles/Vol] 3.8 mmol/L Normal 3.5-5.3 [facility] Comment on above: Performed By: #### 2 5743607, 36707189, 3752277, 8557955, 5093160 ####[facility] [address] [place] [address] Protein [Mass/Vol] 8.3 g/dL High 6.0-7.8 [facility] Comment on above: Performed By: #### 2 1327544, 67087512, 4738744, 8678037, 2390538 ####[facility] [address] [place] [address] Sodium [Moles/Vol] 138 mmol/L Normal 135-145 [facility] Comment on above: Performed By: #### 2 4856627, 25829594, 2375448, 4651717, 6081411 ####[facility] [address] [place] [address] Urea nitrogen [Mass/Vol] 5 mg/dL Normal 5-21 [facility] Comment on above: Performed By: #### 2 7482905, 93373867, 7352052, 6305798, 8945880 ####[facility] [address] [place] [address] Urea nitrogen/Creatinine [Mass ratio] 7 No Units Low 10-20 [facility] Comment on above: Performed By: #### 2 3693568, 81929249, 4541054, 1994723, 4351673 ####[facility] [address] [place] [address] CT Abdomen/Pelvis w/ Contras ton 09-26-2023 CT [...] 300 Contrast amount in ml's: 100 Normal [facility] Consent for Treatmenton 09-11 Consent for Treatment [id number] 0TIFF Normal [facility] Discharge Instructionson Discharge Instructions [id number] 0TIFF Normal [facility] ED Note-Physicianon 09-26-19 ED Note-Physician Basic Information Time Seen: Konstantin Penny DO 09/26/2023 14:25 Chief Complaint c/o nausea and left abdominal pain radiating to back that started back up yesterday. took bentyl ibuprofen and tramadol around noon with no relief. recent admission [facility] for intusseption, ovarian cyst, elevated lactic. denies V/D History of Present Illness 38 year old female presents to the emergency department with chief complaint of abdominal pain. patient states this pain started yesterday and has associated nausea without vomiting. Patient states she was admitted 10 days ago to [facility] for intussusception, ovarian cysts, and elevated lactic. She states she was admitted for one day and that she had another CT done that showed resolution of the intussusception. She reports she was discharged home but went back to [place] ED yesterday for similar pain. She reports [...] and noted. We did review workup from [facility] just recently. Risks and benefits of obtaining [...] differential diagnosis. We did refer her to [facility] for follow-up. Patient also was found to have some constipation on CT therefore we talked about dietary and lifestyle modifications and I did prescribe MiraLAX here as well. She is to follow-up in the outpatient setting return to ER symptoms should change or worsen she is comfortable with this plan. I, Dr. Penny had a qqca-bb-kafw interaction with the patient. I personally performed [...] q12hr, # 20 tab(s), Refills(s) 0, Pharmacy: [facility]/pharmacy #[id number], 165, cm, 09/26/23 14:18:00 EDT, Height/Length Dosing, 81.2, kg, 09/26/23 14:18:00 EDT, Weight Dosing hyoscyamine, 0.125 mg = 1 tab(s), Oral, QID, X 5 day(s), # 20 tab(s), Refills(s) 0, Pharmacy: [facility]/pharmacy #[id number], 165, cm, 09/26/23 14:18:00 EDT, Height/Length Dosing, 81.2, kg, 09/26/23 14:18:00 EDT, Weight Dosing ketorolac, 30 mg = 1 mL, Injection, IV, Once, Stop date 09/26/23 15:40:00 EDT, STAT, Start date 09/26/23 15:40:00 EDT, 09/26/23 15:40:00 EDT polyethylene glycol 3350, 17 gm, Oral, Daily, X 7 day(s), # 119 gm, Refills(s) 0, Pharmacy: [facility]/pharmacy #[id number], 165, cm, 09/26/23 14:18:00 EDT, (more content not included)... Normal [facility] Comment on above: Result Comment: Elec [...] Lipase [Catalytic activity/Vol] 18 U/L Normal 13-58 [facility] Comment on above: Performed By: #### 2 0660743, 68644701, 7292600, 1210742, 8589199 ####[facility] [address] [place] [address] Outside Recordson 09-26-2023 Outside Records [id number]. 00TIFF Normal [facility] SEROLOGYOrdered By: Nohemi Taylor on 09-26-2023 Beta HCG ( test) Ql Negative (09/26/23 2:45 PM) Normal [facility] Man Sero U Drug Screenon 09-26-2023 Amphetamines Screen method >1000 ng/mL Ql (U) Negative Normal NEGATIVE [facility] Comment on above: Result Comment: Nega tive Cutoff: <1000 ng/mL Performed By: #### 2 [id number] #### [facility] [address] [place] [address] Barbiturates Screen Ql (U) Negative Normal NEGATIVE [facility] Comment on above: Result Comment: Nega tive Cutoff: <200 ng/mL Performed By: #### 2 670007 #### [facility] [address] [place] [address] Benzodiazepines Ql (U) Negative Normal NEGATIVE [facility] Comment on above: Result Comment: Nega tive Cutoff: <200 ng/mL Performed By: #### 2 854848 #### [facility] [address] [place] [address] Cannabinoids Screen Ql (U) Negative Normal NEGATIVE [facility] Comment on above: Result Comment: Nega tive Cutoff: <50 ng/mL Performed By: #### 2 675124 #### [facility] [address] [place] [address] Cocaine Ql (U) Negative Normal NEGATIVE [facility] Comment on above: Result Comment: Nega tive Cutoff: <300 ng/mL Performed By: #### 2 522865 #### [facility] [address] [place] [address] Opiates Screen Ql (U) Negative Normal NEGATIVE [facility] Comment on above: Result Comment: Nega tive Cutoff: <300 ng/mL Performed By: #### 2 900814 #### [facility] [address] [place] [address] Phencyclidine Screen method >25 ng/mL Ql (U) Negative Normal NEGATIVE [facility] Comment on above: Result Comment: Nega tive Cutoff: <25 ng/mL These drug screen results are to be used for medical (i.e., treatment) purposes only. Unconfirmed drug screening results must not be used for non-medical purposes (e.g., employment testing, legal testing). Performed By: #### 2 [id number] #### [facility] [address] [place] [address] U Fentanyl Negative Normal NEGATIVE [facility] Comment on above: Result Comment: Nega tive Cutoff: <5 ng/mL These drug screen results are to be used for medical (i.e., treatment) purposes only. Unconfirmed drug screening results must not be used for non-medical purposes (e.g., employment testing, legal testing). Performed By: #### 2 660090 #### [facility] [address] [place] [address] UA with Cult Rflxon 09-26-19 Bilirubin Ql (U) Negative Normal Negative [facility] Comment on above: Performed By: #### 4 [id number] #### [facility] [address] [place] [address] Clarity (U) Clear Normal Clear [facility] Comment on above: Performed By: #### 4 [id number] #### [facility] [address] [place] [address] Color (U) Colorless Abnormal Yellow [facility] Comment on above: Result Comment: Micr oscopic readings are only performed on those samples that meet specific criteria set forth by [facility]. Performed By: #### 4 [id number] #### [facility] [address] [place] [address] Glucose Ql (U) Negative Normal Negative [facility] Comment on above: Performed By: #### 4 [id number] #### [facility] [address] [place] [address] Hemoglobin Auto test strip (U) [Mass/Vol] Negative Normal Negative [facility] Comment on above: Performed By: #### 4 [id number] #### [facility] [address] [place] [address] Ketones Auto test strip Ql (U) Negative Normal Negative [facility] Comment on above: Performed By: #### 4 [id number] #### [facility] [address] [place] [address] Leukocyte esterase Auto test strip Ql (U) Negative Normal Negative [facility] Comment on above: Performed By: #### 4 [id number] #### [facility] [address] [place] [address] Nitrite Auto test strip Ql (U) Negative Normal Negative [facility] Comment on above: Performed By: #### 4 [id number] #### [facility] [address] [place] [address] pH (U) 6.0 [pH] Invalid Interpretation Code 5.0-9.0 [facility] Comment on above: Performed By: #### 4 [id number] #### [facility] [address] [place], [place] [address] Protein Ql (U) Negative Normal Negative [facility] Comment on above: Performed By: #### 4 [id number] #### [facility] [address] [place], [place] [address] Specific gravity (U) [Rel density] 1.004 Invalid Interpretation Code 1.005-1.030 [facility] Comment on above: Performed By: #### 4 [id number] #### [facility] [address] [place], [place] [address] Urobilinogen (U) [Mass/Vol] Negative Normal Negative [facility] Comment on above: Performed By: #### 4 [id number] #### [facility] [address] [place] [address] Type of Urine collection method Clean Catch Normal [facility] Comment on above: Performed By: #### 4 [id number] #### [facility] [address] [place] [address] URINALYSISOrdered By: SYSTEM SYSTEM on 09-26-2023 Bilirubin [...] that meet specific criteria set forth by [facility]. Glucose Ql (U) Negative Normal [...] PM) Invalid Interpretation Code 5.0 - 9.0 [facility] UA Auto SS Protein Ql (U) Negative Normal Negativemg/ dL [facility] UA Auto SS Specific gravity (U) [Rel density] 1.004 *NA* (09/26/23 2:49 PM) Invalid Interpretation Code 1.005 - 1.030 [facility] UA Auto SS Urobilinogen (U) [Mass/Vol] Negative Normal Negativemg/ dL [facility] UA Auto SS URINALYSISOrdered By: Konstantin dillard on 09-26-2023 UA Spec Desc Clean Catch (09/26/23 2:49 PM) Normal [facility] UA Auto SS Work Phone: US Pelvis [...] Transvaginal Ultrasound Performed Uterus Position Anteverted Normal [facility] US Transvaginal Non-OBon US Transvaginal Non-OB Exam Date/Time: 09/26/2023 17:41 EDT Reason for Exam: Pelvic pain Report Please see ultrasound pelvis non-OB complete report Ordering Provider: Konstantin Penny FINAL REPORT Dictated: 09/26/2023 5:53 pm Chad Mo DO Signed (Electronic Signature): 09/26/2023 5:53 pm Signed by: Chad Mo DO Transcribed by: MILLIE Technologist: HAILEY Miller [facility] eGFRon 09-26-2023 eGFR 114 mL/min/1.73 m2 Normal >=59 [facility] Comment on above: Order Comment: Order added by Discern Expert. Performed By: #### 2 [id number], 37239115, 6683040, 3405643, 5595195 ####[facility] [address] [place] [address] CBC With Platelet and Differ entialon 09-06-2023 Basophils (Bld) [#/Vol] 0.1 10*3/uL Normal 0.0-0.2 [facility] Comment on above: Performed By: #### C BCWD #### [facility] [address] [place] [address] Basophils/100 WBC (Bld) 0.6 % Normal [facility] Comment on above: Performed By: #### C BCWD #### [facility] [address] [place] [address] Eosinophils (Bld) [#/Vol] 0.1 10*3/uL Normal 0.0-0.7 [facility] Comment on above: Performed By: #### C BCWD #### [facility] [address] [place] [address] Eosinophils/100 WBC (Bld) 0.6 % Normal [facility] Comment on above: Performed By: #### C BCWD #### [facility] [address] [place] [address] Erythrocyte distribution width (RBC) [Ratio] 15.9 % Critically high 11.5-14.5 [facility] Comment on above: Performed By: #### C BCWD #### [facility] [address] [place] [address] Hematocrit (Bld) [Volume fraction] 34.5 % Low 37.0-47.0 [facility] Comment on above: Performed By: #### C BCWD #### [facility] [address] [place] [address] Hemoglobin (Bld) [Mass/Vol] 10.1 g/dL Low 12.0-16.0 [facility] Comment on above: Performed By: #### C BCWD #### [facility] [address] [place] [address] Lymphocytes (Bld) [#/Vol] 4.4 10*3/uL Normal 1.0-4.8 [facility] Comment on above: Performed By: #### C BCWD #### [facility] [address] [place] [address] Lymphocytes/100 WBC (Bld) 54.2 % Normal [facility] Comment on above: Performed By: #### C BCWD #### [facility] [address] [place] [address] MCH (RBC) [Entitic mass] 22.9 pg Low 27.0-31.3 [facility] Comment on above: Performed By: #### C BCWD #### [facility] [address] [place] [address] MCHC 29.3 % Low 33.0-37.0 [facility] Comment on above: Performed By: #### C BCWD #### [facility] [address] [place] [address] MCV (RBC) [Entitic vol] 78.2 fL Low 79.4-94.8 [facility] Comment on above: Performed By: #### C BCWD #### [facility] [address] [place] [address] Monocytes (Bld) [#/Vol] 0.5 10*3/uL Normal 0.2-0.8 [facility] Comment on above: Performed By: #### C BCWD #### [facility] [address] [place] [address] Monocytes/100 WBC (Bld) 6.5 % Normal [facility] Comment on above: Performed By: #### C BCWD #### [facility] [address] [place] [address] Neutrophils (Bld) [#/Vol] 3.1 10*3/uL Normal 1.4-6.5 [facility] Comment on above: Performed By: #### C BCWD #### [facility] [address] [place] [address] Neutrophils/100 WBC (Bld) 37.9 % Normal [facility] Comment on above: Performed By: #### C BCWD #### [facility] [address] [place] [address] Platelets (Bld) [#/Vol] 482 10*3/uL Critically high 130-[address] [facility] Comment on above: Performed By: #### C BCWD #### [facility] [address] [place] [address] RBC (Bld) [#/Vol] 4.41 10*6/uL Normal 4.20-5.40 [facility] Comment on above: Performed By: #### C BCWD #### [facility] [address] [place] [address] WBC (Bld) [#/Vol] 8.1 10*3/uL Normal 4.8-10.8 [facility] Comment on above: Performed By: #### C BCWD #### [facility] [address] [place] [address] Comprehensive Metabolic Pane van 09-06-2023 Albumin [Mass/Vol] 4.4 g/dL Normal 3.5-4.6 [facility] Comment on above: Performed By: #### C MP #### [facility] [address] [place] [address] ALP [Catalytic activity/Vol] 72 U/L Normal 40-130 [facility] Comment on above: Performed By: #### C MP #### [facility] [address] [place] [address] ALT [Catalytic activity/Vol] 15 U/L Normal 0-33 [facility] Comment on above: Performed By: #### C MP #### [facility] [address] [place] [address] Anion gap [Moles/Vol] 11 mmol/L Normal 9-15 [facility] Comment on above: Performed By: #### C MP #### [facility] [address] [place] [address] AST [Catalytic activity/Vol] 18 U/L Normal 0-35 [facility] Comment on above: Performed By: #### C MP #### [facility] [address] [place] [address] Bilirubin [Mass/Vol] 0.4 mg/dL Normal 0.2-0.7 [facility] Comment on above: Performed By: #### C MP #### [facility] [address] [place] [address] Calcium [Mass/Vol] 9.5 mg/dL Normal 8.5-9.9 [facility] Comment on above: Performed By: #### C MP #### [facility] [address] [place] [address] Chloride [Moles/Vol] 102 mmol/L Normal 95-107 [facility] Comment on above: Performed By: #### C MP #### [facility] [address] [place] [address] CO2 [Moles/Vol] 24 mmol/L Normal 20-31 [facility] Comment on above: Performed By: #### C MP #### [facility] [address] [place] [address] Creatinine [Mass/Vol] 0.59 mg/dL Normal 0.50-0.90 [facility] Comment on above: Performed By: #### C MP #### [facility] [address] [place] [address] GFR >90.0 Normal >60 [facility] Comment on above: Result Comment: Pedi [...] secretion. Performed By: #### C MP #### [facility] [address] [place] [address] Globulin (S) [Mass/Vol] 3.5 g/dL Normal 2.3-3.5 [facility] Comment on above: Performed By: #### C MP #### [facility] [address] [place] [address] Glucose [Mass/Vol] 98 mg/dL Normal 70-99 [facility] Comment on above: Performed By: #### C MP #### [facility] [address] [place] [address] Potassium [Moles/Vol] 3.2 mmol/L Low 3.4-4.9 [facility] Comment on above: Performed By: #### C MP #### [facility] [address] [place] [address] Protein [Mass/Vol] 7.9 g/dL Normal 6.3-8.0 [facility] Comment on above: Performed By: #### C MP #### [facility] [address] [place] [address] Sodium [Moles/Vol] 137 mmol/L Normal 135-144 [facility] Comment on above: Performed By: #### C MP #### [facility] [address] [place] [address] Urea nitrogen [Mass/Vol] 4 mg/dL Low 6-20 [facility] Comment on above: Performed By: #### C MP #### [facility] [address] [place] [address] US NON OB TRANSVAGINALon US NON OB [...] Jessy Campos MD 09/06/[address] [facility] US PELVIS COMPLETEon 024 US PELVIS [...] Jessy Campos MD 09/06/[address] [facility] Urinalysis, reflex to cultur silvino 09-06-2023 Urine Reflexed to Culture Not Indicated Normal [facility] Comment on above: Performed By: #### U AR #### [facility] [address] [place] [address] Bilirubin Ql (U) Negative Normal Negative [facility] Comment on above: Performed By: #### U AR #### [facility] [address] [place] [address] Clarity (U) Clear Normal Clear [facility] Comment on above: Performed By: #### U AR #### [facility] [address] [place] [address] Color (U) Yellow Normal Straw/[facility] Comment on above: Performed By: #### U AR #### [facility] [address] [place] [address] Glucose Ql (U) >=[address] [facility] Comment on above: Performed By: #### U AR #### [facility] [address] [place] [address] Hemoglobin Ql (U) TRACE Abnormal Negative [facility] Comment on above: Performed By: #### U AR #### [facility] [address] [place] [address] Ketones Ql (U) >=[address] [facility] Comment on above: Performed By: #### U AR #### [facility] [address] [place] [address] Leukocyte esterase Test strip Ql (U) Negative Normal Negative [facility] Comment on above: Performed By: #### U AR #### [facility] [address] [place] [address] Nitrite Ql (U) Negative Normal Negative [facility] Comment on above: Performed By: #### U AR #### [facility] [address] [place] [address] pH (U) 5.0 [pH] Normal 5.0-9.0 [facility] Comment on above: Performed By: #### U AR #### [facility] [address] [place] [address] Protein Ql (U) TRACE Abnormal Negative [facility] Comment on above: Performed By: #### U AR #### [facility] [address] [place] [address] Specific gravity (U) [Rel density] 1.025 Normal 1.005-1.03 [facility] Comment on above: Performed By: #### U AR #### [facility] [address] [place] [address] Urobilinogen Qn (U) 0.2 {Ivone'U}/dL Normal < 2.0 [facility] Comment on above: Performed By: #### U AR #### [facility] [address] [place] [address] Urine Microscopicon 09-06-19 24 Bacteria LM.HPF (Urine sed) [#/Area] Negative Normal Negative [facility] Comment on above: Performed By: #### U ARELIS #### [facility] [address] [place] [address] Urine Epithelial Cells Auto 0-2 Normal 0-5 [facility] Comment on above: Performed By: #### U ARELIS #### [facility] [address] [place] [address] Urine Hyaline Casts Auto 0-1 Normal 0-5 [facility] Comment on above: Performed By: #### U ARELIS #### [facility] [address] [place] [address] Urine RBC Auto 3-5 Abnormal 0-5 [facility] Comment on above: Performed By: #### U ARELIS #### [facility] [address] [place] [address] Urine WBC Auto 0-2 Normal 0-5 [facility] Comment on above: Performed By: #### U ARELIS #### [facility] [address] [place] [address] ED Note-Physicianon 08-01-19 ED Note-Physician Basic Information [...] endometritis for which she follows with a FITNESS TECHNICIAN at the [facility]. Review of Systems A 10 point [...] for discharge home and follow-up with her FITNESS TECHNICIAN. Short course of pain medication as prescribed after an OARRS review for this patient. Return precautions were discussed. All questions were answered. The patient was discharged home for outpatient follow-up for her acute on chronic pain. Assessment/Plan Abdominal pain, acute (R10.9: Unspecified abdominal pain) Ordered: acetaminophen-oxycodon e, 1 tab(s), Oral, q6hr Pain 8-10 for 3 day(s), 12 tab(s), Refill(s) 0, [facility]/pharmacy #[id number], 165.1, cm, 07/31/23 15:42:00 [...] Discharge D (more content not included)... Normal [facility] Comment on above: Result Comment: Elec tronically Signed By: Jignesh Dumont DO.br\Date and Time Signed: 08/01/23 09:21 EST B hCG Qualon 07-31-2023 Beta HCG ( test) Ql Negative Normal [facility] Comment on above: Performed By: #### 2 [id number], 8292003, 47680938, [id number], 8772720 ####[facility] [address] [place] [address] BMPon 07-31-2023 Anion gap [Moles/Vol] 15 mmol/L Normal 6-16 [facility] Comment on above: Performed By: #### 2 425061, 9653985, 97243544, [id number], [id number] ####[facility] [address] [place] [address] BUN/Creat Ratio 4 No Units Low 10-20 [facility] Comment on above: Performed By: #### 2 002691, 1811929, 39313321, [id number], 9117897 ####[facility] [address] [place] [address] Calcium [Mass/Vol] 9.6 mg/dL Normal 8.9-11.1 [facility] Comment on above: Performed By: #### 2 265910, 1410087, 36361599, 73759890, 7575018 ####[facility] G[address]rth[address] [place] [address] Chloride [Moles/Vol] 106 mmol/L Normal 101-111 [facility] Comment on above: Performed By: #### 2 561126, 4622054, 23374645, 26848604, 3875092 ####[facility] [address] [place] [address] CO2 [Moles/Vol] 21 mmol/L Normal 21-31 [facility] Comment on above: Performed By: #### 2 117866, 1849758, 17779725, 42110665, 7069760 ####[facility] [address] [place] [address] Creatinine [Mass/Vol] 0.9 mg/dL Normal 0.5-1.3 [facility] Comment on above: Performed By: #### 2 595596, 2584354, 01012805, 74130086, 4432029 ####[facility] [address] [place] [address] Glucose [Mass/Vol] 109 mg/dL Normal 55-199 [facility] Comment on above: Performed By: #### 2 815469, 4215525, 97499401, 22419011, 4098257 ####[facility] [address] [place] [address] Potassium [Moles/Vol] 3.6 mmol/L Normal 3.5-5.3 [facility] Comment on above: Performed By: #### 2 306336, 6744009, 45071828, 67200782, 9477361 ####[facility] [address] [place] [address] Sodium [Moles/Vol] 138 mmol/L Normal 135-145 [facility] Comment on above: Performed By: #### 2 860144, 2497130, 89857283, 92017595, 3282396 ####[facility] [address] [place] [address] Urea nitrogen [Mass/Vol] mg/dL Low 5-21 [facility] Comment on above: Performed By: #### 2 172488, 3090192, 56126974, 34465857, 6904704 ####[facility] [address] [place] [address] CBC w/ Auto Diffon 4 Anisocytosis Ql (Bld) PRESENT Invalid Interpretation Code [facility] Comment on above: Performed By: #### 2 284079, 7084891, 80219807, 54825836, 8811914 ####[facility] [address] [place] [address] Microcyte PRESENT Invalid Interpretation Code [facility] Comment on above: Performed By: #### 2 074445, 1550622, 83609643, 57191700, 5334355 ####[facility] [address] [place] [address] RBC morphology finding Nom (Bld) SEE MORPHOLOGY Invalid Interpretation Code [facility] Comment on above: Performed By: #### 2 428379, 7395027, 98349681, 11874835, 8907669 ####[facility] [address] [place] [address] Basophil Absolute 0.1 E9/L Normal 0.0-0.2 [facility] Comment on above: Performed By: #### 2 169359, 4376144, 58175601, 69455065, 3910886 ####[address] [address] Basophils/100 WBC (Bld) 1.1 % Normal 0.0-2.0 [facility] Comment on above: Performed By: #### 2 855890, 6842082, 63909751, 63336167, 7044331 ####[address] [address] Eos Absolute 0.0 E9/L Normal 0.0-0.5 [facility] Comment on above: Performed By: #### 2 501684, 4764357, 42897822, 01557094, 0354235 ####[address] [address] Eosinophils/100 WBC (Bld) 0.2 % Normal 0.0-8.0 [facility] Comment on above: Performed By: #### 2 818422, 3115133, 00083427, 58563158, 2107091 ####[address] [address] Erythrocyte distribution width (RBC) [Ratio] 16.5 % High 10.9-14.2 [facility] Comment on above: Performed By: #### 2 814453, 6926167, 78993129, 50107416, 1995172 ####[address] [address] Hematocrit (Bld) [Volume fraction] 36.0 % Normal 34.0-46.0 [facility] Comment on above: Performed By: #### 2 411810, 9577836, 03533054, 27914151, 2169080 ####[address] [address] Hemoglobin (Bld) [Mass/Vol] 11.4 g/dL Low 12.0-16.0 [facility] Comment on above: Performed By: #### 2 258922, 6028841, 43094007, 18316844, 0403558 ####[facility] [address] [place] [address] Lymph Absolute 2.2 E9/L Normal 1.0-4.0 [facility] Comment on above: Performed By: #### 2 928936, 6726498, 79489996, 51930470, 3162614 ####[address] [address] Lymphocytes/100 WBC (Bld) 25.3 % Normal 14.0-50.0 [facility] Comment on above: Performed By: #### 2 431433, 4995488, 73486059, 11427745, 7648881 ####[address] [address] MCH (RBC) [Entitic mass] 24.0 pg Low 27.0-34.0 [facility] Comment on above: Performed By: #### 2 402312, 5034921, 80254352, 95232433, 1156792 ####[address] [address] MCHC (RBC) [Mass/Vol] 31.9 g/dL Normal 31.4-36.0 [facility] Comment on above: Performed By: #### 2 653469, 6045356, 48946851, 82944209, 2115357 ####[address] [address] MCV (RBC) [Entitic vol] 75.2 fL Low 80.0-100.0 F [facility] Comment on above: Performed By: #### 2 846038, 3506781, 31589758, 37817221, 8223816 ####[address] [address] Haines Absolute 0.5 E9/L Normal 0.2-1.0 [facility] Comment on above: Performed By: #### 2 772749, 1809788, 38759901, 13495809, 3899321 ####[address] [place] [address] Monocytes/100 WBC (Bld) 5.4 % Normal 4.0-14.0 [facility] Comment on above: Performed By: #### 2 171687, 0338093, 16655222, 38370140, 8256199 ####[facility] [address] [place] [address] Neutro Absolute 5.9 E9/L Normal 2.0-7.5 [facility] Comment on above: Performed By: #### 2 762963, 5396347, 65354344, 44501537, 5238064 ####[facility] [address] [place] [address] Neutro Auto 68.0 % Normal 36.0-75.0 [facility] Comment on above: Performed By: #### 2 016650, 3256501, 75635419, 21842228, 3146105 ####[facility] [address] [place] [address], [place] [address] Platelet 612.0 E9/L High 150.0-500.0 [facility] Comment on above: Performed By: #### 2 663761, 4705427, 93324932, 29843378, 0040724 ####[facility] [address] [place] [address] Platelet mean volume (Bld) [Entitic vol] 7.4 fL Normal 6.4-10.8 [facility] Comment on above: Performed By: #### 2 063547, 4774540, 80448814, 39397623, 9830701 ####[facility] [address] [place] [address] RBC 4.7 E12/L Normal 4.3-5.9 [facility] Comment on above: Performed By: #### 2 059621, 6922427, 33224052, 17502870, 3892069 ####[facility] [address] [place] [address] WBC 8.6 E9/L Normal 4.0-11.0 [facility] Comment on above: Performed By: #### 2 904434, 7140453, 28474343, 54809196, 9112282 ####[facility] [address] [place] [address] CHEMISTRYOrdered By: SYSTEM SYSTEM on 07-31-2023 Albumin [...] - [address] Abdomen/Pelvis w/o Contrchi del toro 07-31-2023 CT Abdomen/Pelvis w/o Contrast [...] Oral contrast amount in ml's: 0 Normal [facility] Discharge Instructionson Discharge Instructions [id number] [id number]#1.0 0TIFF Normal [facility] ED Clinical Summaryon 2023 ED Clinical Summary [place] [id number] ED Clinical Summary Person Information Name: ANTONIA NOYOLA/[facility] Age: 38 Years : 1985 Sex: Female Language: Jordanian PCP: NONE, XXXX Marital Status: Visit Id: [...] 18:03:59 07/31/2023 18:03:59 07/31/2023 18:03:59 ADDRESS: [address] [place] [id number] PHYS DOC NOTES: MEDICAL INFORMATION: Prescriptions Given: New Medications [id number], [address], [place] [id number], [phone] acetaminophen-oxycodon e (Percocet 5 mg-325 mg oral [...] up: With: Address: When: Follow-up with your FITNESS TECHNICIAN at [facility] In 3 days 08/03/2023 Comments: Call [...] worsening symptoms. DIAGNOSIS: Abdominal pain, acute Normal [facility] ED Patient Education Noteon 07-31-2023 ED [...] these instructions at home: Medicines ? Take whad-tzs-gqytrff and prescription medicines only as told by [...] your condition for any changes. ? Take wmeb-psk-khoaana and prescription medicines only as told by [...] provider. Document Revised: 07/18/2020 Document Reviewed: 10/08/2019 [employer] Patient Education ? 2022 [employer] Normal [facility] ED Patient Summaryon 024 ED Patient Summary [id number] Patient Discharge Instructions Person Information Name: ANTONIA NOYOLA Age: 38 Years Arrival Date: 07/31/2023 15:33:06 Discharge Diagnosis: Abdominal pain, acute Primary Care Physician: NONE, XXXX Provider Information Primary Provider: Jignesh Dumont DO Advanced Die Press Operator:None The exam and treatment you received in the Emergency Department were for an urgent problem and are not intended as complete care. It is important that you follow up with a doctor, nurse practitioner, or physician?s front end assistant for ongoing care. If your symptoms [...] Instructions: With: Address: When: Follow-up with your FITNESS TECHNICIAN at [facility] In 3 days 08/03/2023 Comments: Call [...] opioids can be used to help relieve pgfjqfoa-fl-zxeibj pain and are often prescribed following a [...] and al (more content not included)... Normal [facility] HEMATOLOGYOrdered By: Sloane Mazariegos on 07-31-2023 [...] Low 80.0 - 100.0 fL Remisol Heme Haines Absolute 0.5 E9/L Normal 0.2 - 1.0 [...] 07-31-2023 Albumin [Mass/Vol] 4.6 g/dL Normal 3.3-5.0 [facility] Comment on above: Performed By: #### 2 128857, 7317208, 03205606, 81119030, 3986247 ####[facility] [address] [place] [address] Albumin/Globulin [Mass ratio] 1.4 {ratio} Normal 1.1-2.2 [facility] Comment on above: Performed By: #### 2 741161, 7963199, 58877340, 44114747, 8073489 ####[facility] [address] [place] [address] Alk Phos 73 Int._Unit/L Normal 21-98 [facility] Comment on above: Performed By: #### 2 984374, 6303448, 05430785, 73800752, 9691205 ####[facility] [address] [place] [address] ALT 10 Int._Unit/L Normal 6-46 [facility] Comment on above: Performed By: #### 2 998260, 7343925, 04106648, 99258948, 3560749 ####[facility] [address] [place] [address] AST 11 Int._Unit/L Normal 5-43 [facility] Comment on above: Performed By: #### 2 166679, 0807318, 68337095, 50686089, 7883720 ####[facility] [address] [place] [address] Bili Direct 0.1 mg/dL Normal 0.0-0.4 [facility] Comment on above: Performed By: #### 2 406453, 4505629, 62946530, 07230275, 4196080 ####[facility] [address] [place] [address] Bili Indirect 0.4 mg/dL Normal 0.1-0.9 [facility] Comment on above: Performed By: #### 2 887347, 9903543, 70948718, 28423361, 1273733 ####[facility] [address] [place] [address] Bili Total 0.5 mg/dL Normal 0.0-1.1 [facility] Comment on above: Performed By: #### 2 163216, 7459272, 35938268, 47000358, 2216295 ####[facility] [address] [place] [address] Globulin (S) [Mass/Vol] 3.3 g/dL Normal 1.4-4.0 F [facility] Comment on above: Performed By: #### 2 199136, 6556033, 88448656, 06861629, 0224206 ####[facility] [address] [place] [address] Protein [Mass/Vol] 7.9 g/dL High 6.0-7.8 [facility] Comment on above: Performed By: #### 2 405197, 6902386, 34410660, 11911331, 4052809 ####[facility] [address] [place] [address] Monitor Recordon 07-31-2023 Monitor Record [id number]#1. 00TIFF Normal [facility] SEROLOGYOrdered By: Felicity patel on 07-31-2023 Beta HCG ( test) Ql Negative (07/31/23 4:20 PM) Normal [facility] Man Sero UA With Cult Reflexon 2023 Bacteria LM Ql (Urine sed) TRACE Normal Trace [facility] Comment on above: Performed By: #### 1 8724896 ####[facility] [address] [place] [address] Bilirubin Ql (U) Negative Normal Negative [facility] Comment on above: Performed By: #### 1 1971853 ####[facility] [address] [place] [address] Clarity (U) CLEAR Normal Clear [facility] Comment on above: Performed By: #### 1 1065006 ####[address] [address] Color (U) YELLOW Normal Yellow [facility] Comment on above: Performed By: #### 1 3673160 ####[address] [address] Epithelial cells.squamous LM.HPF (Urine sed) [#/Area] 0-2 Normal 0-2 [facility] Comment on above: Performed By: #### 1 1185567 ####[address] [address] Glucose Test strip (U) [Mass/Vol] Negative Normal Negative [facility] Comment on above: Performed By: #### 1 1175582 ####[address] [address] Hemoglobin Ql (U) Negative Normal Negative [facility] Comment on above: Performed By: #### 1 6161585 ####[address] [address] Ketones (U) [Mass/Vol] 1+ Abnormal Negative [facility] Comment on above: Performed By: #### 1 4041719 ####[address] [address] [facility]plasma[facility]. RBC (Bld) [Mass ratio] 0-3 Normal 0-3 [facility] Comment on above: Performed By: #### 1 5305741 ####[facility] [address] [place] [address] Mucus Ql (Urine sed) TRACE Normal [facility] Comment on above: Performed By: #### 1 0441535 ####[place] [address] [place] [address] Nitrite Ql (U) Negative Normal Negative [facility] Comment on above: Performed By: #### 1 7675845 ####[address] [address] pH (U) 8.5 [pH] Invalid Interpretation Code 5.0-9.0 [facility] Comment on above: Performed By: #### 1 0762955 ####[address] [address] Protein (U) [Mass/Vol] Negative Normal Negative [facility] Comment on above: Performed By: #### 1 6350290 ####[address] [address] Specific gravity (U) [Rel density] 1.015 Invalid Interpretation Code 1.005-1.030 [facility] Comment on above: Performed By: #### 1 6486688 ####[address] [address] Type of Urine collection method Clean Catch Normal [facility] Comment on above: Performed By: #### 1 8666864 ####[address] [address] Urobilinogen Qn (U) 0.2 {Ivone'U}/dL Normal 0.0-1.0 [facility] Comment on above: Performed By: #### 1 0649329 ####[address] [address] WBC Auto Ql (U) Negative Normal Negative [facility] Comment on above: Performed By: #### 1 3482147 ####[address] [address] WBC LM.HPF (Urine sed) [#/Area] 0-5 Normal 0-5 [facility] Comment on above: Performed By: #### 1 1708369 ####[address] [address] URINALYSISOrdered By: Felicity George on 07-31-2023 Bacteria LM Ql (Urine sed) Trace /HPF Normal Trace/HPF [facility] UA Auto SS Bilirubin Ql (U) Negative [...] Interpretation Code Negative [facility] UA Auto SS [facility]plasma/[place]. RBC (Bld) [Mass ratio] 0-3 /HPF Normal [...] [facility] UA Auto SS Urobilinogen Qn (U) 0.4810029 {Ivone'U}/dL Normal 0.0 - 1.0 EU/dL [facility] UA Auto SS WBC Auto Ql (U) Negative (07/31/23 4:30 PM) Normal Negative [facility] UA Auto SS WBC LM.HPF (Urine sed) [#/Area] 0-5 /HPF Normal 0-5/HPF [facility] UA Auto SS eGFRon 07-31-2023 eGFR 85 mL/min/1.73 m2 Normal >=59 [facility] Comment on above: Order Comment: Order added by Discern Expert. Performed By: #### 2 607537, 8352551, 50405711, 51121210, 6858304 ####[facility] [address] [place] [address] ED NOTEon 06-23-2023 ED NOTE HNO ID: [id number] Author: DENNIS CAMARGO RN Service: ? Author Type: Registered Nurse Type: ED Notes Filed: 06/22/2023 22:17 Note Text: Patient given verbal and written D/C instructions. Medications and follow up care discussed. Instructed to return to ED if conditions and symptoms persist or worsen. All questions addressed and answered pt verbalized understanding. Pt [facility] to [facility] noted. Normal [facility] HAV IgM Ser Qlon 06-23-2023 HAV IgM Ql (S) Negative Normal Negative [facility] Comment on above: Order Comment: Spectigre conway Type: BLOOD SPECIMENOrdering Facility: [facility] Address: [address] [place] [address] Result Comment: No e vidence of recent infection with Hepatitis A virus. Performed By: #### 3 1204-1, 5195-3, 44738-4 ####[facility] [id number] [address] [place] HBV core IgM Ser Qlon 2023 HBV core IgM Ql (S) Negative Normal Negative [facility] Comment on above: Order Comment: Roselyn conway Type: BLOOD SPECIMENOrdering Facility: [facility] Address: [address] [place] [address] Result Comment: No e vidence of recent infection with Hepatitis B virus. Should recent infection be suspected, repeat testing may be considered 3-4 weeks after this draw. Performed By: #### 3 1204-1, 5195-3, 66392-3 ####[facility] LABCLIA [id number] [place] [address] [place] HBV surface Ag Ser Qlon 06-13 HBV surface Ag Ql (S) Negative Normal Negative [facility] Comment on above: Order Comment: Roselyn men Type: BLOOD SPECIMENOrdering Facility: [facility] Address: [place] [address] Performed By: #### 3 1204-1, 5195-3, 41411-7 ####[facility] LABCLIA [id number] [address] [place] HCV RNA SerPl SENAIT+probe-aCnc on 06-23-2023 HCV RNA SENAIT+probe Qn Not detected Normal HCV RNA not detected by PCR. [facility] Comment on above: Order Comment: Roselyn zoraida Type: BLOOD SPECIMEN [facility] Address: [place] [address] Performed By: #### 1 1011-4 #### [facility] CLIA [id number] [address] [facility] [place] [address] [place] ALLIED HEALTHon 06-22-2023 ALLIED HEALTH HNO ID: [id number] Author: SELENA AMADOR RT(R) Service: Radiology Author [...] TIME: 7:[address] [facility] HNO ID: [id number] Author: DELLA BEST RDMS, GINETTE Service: Radiology Author Type: Shelving Supervisor Type: Allied Health Filed: 06/22/2023 18:55 Note [...] RDMS, GINETTE June 22, 2023 6:55 PM [facility] CBC W Auto Differential pane l (Bld)on 06-22-2023 Basophils (Bld) [#/Vol] 0.03 10*3/uL Normal <0.11 [facility] Comment on above: Order Comment: Speci men Type: BLOOD SPECIMENOrdering Facility: [facility] Address: [address] [place] [address] Performed By: #### 5 7021-8 ####[facility]ORYCL[facility] [id number] [address] [place], [place] [address] [place] Basophils/100 WBC (Bld) 0.6 % Normal [facility] Comment on above: Order Comment: Speci men Type: BLOOD SPECIMENOrdering Facility: [facility] Address: [address] [place] [address] Performed By: #### 5 7021-8 ####[facility]ORATORYCLIA [id number] [address] [place] [address] [place] Differential cell count method Nom (Bld) Auto Normal [facility] Comment on above: Order Comment: Speci men Type: BLOOD SPECIMENOrdering Facility: [facility] Address: [address] [place] [address] Performed By: #### 5 7021-8 ####[facility]ORATORYCLIA [id number] [place] [address] [place] Eosinophils (Bld) [#/Vol] 0.03 10*3/uL Normal <0.46 [facility] Comment on above: Order Comment: Speci men Type: BLOOD SPECIMENOrdering Facility: [facility] Address: [address] [place] [address] Performed By: #### 5 7021-8 ####[facility]ORATORYCLIA [id number] [address] [place] [address] [place] Eosinophils/100 WBC (Bld) 0.6 % Normal [facility] Comment on above: Order Comment: Speci men Type: BLOOD SPECIMENOrdering Facility: [facility] Address: [address] [place] [address] Performed By: #### 5 7021-8 ####[facility] LABORATORYCLIA [id number] [address] [place] [address] [place] Erythrocyte distribution width (RBC) [Ratio] 16.5 % High 11.5-15.0 [facility] Comment on above: Order Comment: Speci men Type: BLOOD SPECIMENOrdering Facility: [facility] Address: [address] [place] [address] Performed By: #### 5 7021-8 ####[facility]ORATORYCLIA [id number] [address] [place] [address] [place] Hematocrit (Bld) [Volume fraction] 37.7 % Normal 36.0-46.0 [facility] Comment on above: Order Comment: Speci men Type: BLOOD SPECIMENOrdering Facility: [facility] Address: [address] [place] [address] Performed By: #### 5 7021-8 ####[facility]ORATORYCLIA [id number] [address] [place] [address] [place] Hemoglobin (Bld) [Mass/Vol] 11.7 g/dL Normal 11.5-15.5 [facility] Comment on above: Order Comment: Speci men Type: BLOOD SPECIMENOrdering Facility: [facility] Address: [address] [place] [address] Performed By: #### 5 7021-8 ####[facility] LABORATORYCLIA [id number] [place] [address] [place] Immature granulocytes (Bld) [#/Vol] 10*3/uL Normal <0.10 [facility] Comment on above: Order Comment: Speci men Type: BLOOD SPECIMENOrdering Facility: [facility] Address: [address] [place] [address] Performed By: #### 5 7021-8 ####[facility] LABORATORYCLIA [id number] [place] [address] [place] Immature granulocytes/100 WBC (Bld) 0.4 % Normal [facility] Comment on above: Order Comment: Speci men Type: BLOOD SPECIMENOrdering Facility: [facility] Address: [address] [place] [address] Performed By: #### 5 7021-8 ####[facility]ORATORYCLIA [id number] [address] [place] [address] [place] Lymphocytes (Bld) [#/Vol] 1.87 10*3/uL Normal 1.00-4.00 [facility] Comment on above: Order Comment: Speci men Type: BLOOD SPECIMENOrdering Facility: [facility] Address: [address] [place] [address] Performed By: #### 5 7021-8 ####[facility]ORATORYCLIA [id number] [address] [place], [place] [address] [place] Lymphocytes/100 WBC (Bld) 34.4 % Normal [facility] Comment on above: Order Comment: Speci men Type: BLOOD SPECIMENOrdering Facility: [facility] Address: [address] [place] [address] Performed By: #### 5 7021-8 ####[facility] LABORATORYCLIA [id number] [place] [address] [place] MCH (RBC) [Entitic mass] 24.5 pg Low 26.0-34.0 [facility] Comment on above: Order Comment: Speci men Type: BLOOD SPECIMENOrdering Facility: [facility] Address: [address] [place] [address] Performed By: #### 5 7021-8 ####[facility] LABORATORYCLIA [id number] [place] [address] [place] MCHC (RBC) [Mass/Vol] 31.0 g/dL Normal 30.5-36.0 [facility] Comment on above: Order Comment: Speci men Type: BLOOD SPECIMENOrdering Facility: [facility] Address: [address] [place] [address] Performed By: #### 5 7021-8 ####[facility] LABORATORYCLIA [id number] [place] [id number] [place] MCV (RBC) [Entitic vol] 79.0 fL Low 80.0-100.0 [facility] Comment on above: Order Comment: Speci men Type: BLOOD SPECIMENOrdering Facility: [facility] Address: [address] [place] [address] Performed By: #### 5 7021-8 ####[facility] LABORATORYCLIA [id number] [address] [place] [address] [place] Monocytes (Bld) [#/Vol] 0.25 10*3/uL Normal <0.87 [facility] Comment on above: Order Comment: Speci men Type: BLOOD SPECIMENOrdering Facility: [facility] Address: [address] [place] [address] Performed By: #### 5 7021-8 ####[facility] LABORATORYCLIA [id number] [address] [address] [place] [address] [place] Monocytes/100 WBC (Bld) 4.6 % Normal [facility] Comment on above: Order Comment: Speci men Type: BLOOD SPECIMENOrdering Facility: [facility] Address: [address] [place] [address] Performed By: #### 5 7021-8 ####[facility]IAN[facility] LABORATORYCLIA [id number] [place] [address] [place] Neutrophils (Bld) [#/Vol] 3.23 10*3/uL Normal 1.45-7.50 [facility] Comment on above: Order Comment: Speci men Type: BLOOD SPECIMENOrdering Facility: [facility] Address: [address] [place] [address] Performed By: #### 5 7021-8 ####CH[facility]STIAN[facility] LABORATORYCLIA [id number] [address] [place] Neutrophils/100 WBC (Bld) 59.4 % Normal [facility] Comment on above: Order Comment: Speci men Type: BLOOD SPECIMENOrdering Facility: [facility] Address: [address] [place] [address] Performed By: #### 5 7021-8 ####[facility]STIAN[facility] LABORATORYCLIA [id number] [place] [address] [place] Nucleated RBC (Bld) [#/Vol] 10*3/uL Normal <0.01 [facility] Comment on above: Order Comment: Speci men Type: BLOOD SPECIMENOrdering Facility: [facility] Address: [address] [place] [address] Performed By: #### 5 7021-8 ####CHRISTIANITY LABORATORYCLIA [id number] [address] [place], [place] [address] [place] Nucleated RBC/100 WBC (Bld) [Ratio] 0.0 /100 WBC Normal [facility] Comment on above: Order Comment: Speci men Type: BLOOD SPECIMENOrdering Facility: [facility] Address: [address] [place] [address] Performed By: #### 5 7021-8 ####CH[facility]STIANITY LABORATORYCLIA [id number] [place] [address] [place] Platelet mean volume (Bld) [Entitic vol] 9.4 fL Normal 9.0-12.7 [facility] Comment on above: Order Comment: Speci men Type: BLOOD SPECIMENOrdering Facility: [facility] Address: [address] [place] [address] Performed By: #### 5 7021-8 ####CH[facility]STIAN[facility] LABORATORYCLIA [id number] [place] [address] [place] Platelets (Bld) [#/Vol] 486 10*3/uL High 150-400 [facility] Comment on above: Order Comment: Speci men Type: BLOOD SPECIMENOrdering Facility: [facility] Address: [address] [place] [address] Performed By: #### 5 7021-8 ####CHRISTIANITY LABORATORYCLIA [id number] [place] [id number] [place] RBC (Bld) [#/Vol] 4.77 10*6/uL Normal 3.90-5.20 [facility] Comment on above: Order Comment: Speci men Type: BLOOD SPECIMENOrdering Facility: [facility] Address: [address] [place] [address] Performed By: #### 5 7021-8 ####CHRISTIAN[facility] LABORATORYCLIA [id number] [place] [id number] [place] WBC (Bld) [#/Vol] 5.43 10*3/uL Normal 3.70-11.00 [facility] Comment on above: Order Comment: Speci men Type: BLOOD SPECIMENOrdering Facility: [facility] Address: [place] [address] Performed By: #### 5 7021-8 ####CHRISTIANITY LABORATORYCLIA [id number] [place] [address] [place] CT ABD/PEL W [...] Tissues: No significant finding. Lower thorax: Unremarkable. Bean Roaster (topogram) images: Unremarkable. IMPRESSION: No acute intra-abdominal or pelvic process identified. Telecom Network Manager: PSCB Transcribe Date/Time: Jun 22 2023 8:25P Dictated by : CHAD SCHILLING MD This examination was interpreted and the report reviewed and electronically signed by: CHAD SCHILLING MD on Jun 22 2023 8:29PM EST [id number] Normal [facility] Comprehensive metabolic 2000 panelon 06-22-2023 Albumin [Mass/Vol] 4.8 g/dL Normal 3.9-4.9 [facility] Comment on above: Order Comment: Speci men Type: BLOOD SPECIMENOrdering Facility: [facility] Address: [place] [address] Performed By: #### 2 4323-8, 0-3, ####CHRISTIANITY LABORATORYCLIA [id number] [address] [place], [place] [address] [place] ALP [Catalytic activity/Vol] 108 U/L Normal 34-123 [facility] Comment on above: Order Comment: Speci men Type: BLOOD SPECIMENOrdering Facility: [facility] Address: [address] [place] [address] Performed By: #### 2 4323-8, 3039-3, ####CHRISTIANITY LABORATORYCLIA [id number] [address] [place], [place] [address] [place] ALT [Catalytic activity/Vol] 63 U/L High 7-38 [facility] Comment on above: Order Comment: Speci men Type: BLOOD SPECIMENOrdering Facility: [facility] Address: [place] [address] Performed By: #### 2 4323-8, 3039-3, ####CHRISTIANITY LABORATORYCLIA [id number] [place] [id number] [place] Anion gap [Moles/Vol] 13 mmol/L Normal 9-18 [facility] Comment on above: Order Comment: Speci men Type: BLOOD SPECIMENOrdering Facility: [facility] Address: [place] [address] Performed By: #### 2 4323-8, 0-3, ####CHRISTIANITY LABORATORYCLIA [id number] [place] [id number] [place] AST [Catalytic activity/Vol] 109 U/L High 13-35 [facility] Comment on above: Order Comment: Speci men Type: BLOOD SPECIMENOrdering Facility: [facility] Address: [address] [place] [address] Performed By: #### 2 4323-8, 3039-3, ####CHRISTIANITY LABORATORYCLIA [id number] [address] [place], [place] [address] [place] Bilirubin [Mass/Vol] 0.4 mg/dL Normal 0.2-1.3 [facility] Comment on above: Order Comment: Speci men Type: BLOOD SPECIMENOrdering Facility: [facility] Address: [address] [place] [address] Performed By: #### 2 4323-8, 3039-3, ####CHRISTIANITY LABORATORYCLIA [id number] [address] [place], [place] [address] [place] Calcium [Mass/Vol] 9.6 mg/dL Normal 8.5-10.2 [facility] Comment on above: Order Comment: Speci men Type: BLOOD SPECIMENOrdering Facility: [facility] Address: [address] [place] [address] Performed By: #### 2 4323-8, 3, ####CHRISTIANITY LABORATORYCLIA [id number] [place] [id number] [place] Chloride [Moles/Vol] 102 mmol/L Normal 97-105 [facility] Comment on above: Order Comment: Speci men Type: BLOOD SPECIMENOrdering Facility: [facility] Address: [address] [place] [address] Performed By: #### 2 4323-8, 3, ####CHRISTIANITY LABORATORYCLIA [id number] [place] [id number] [place] CO2 [Moles/Vol] 23 mmol/L Normal 22-30 [facility] Comment on above: Order Comment: Speci men Type: BLOOD SPECIMENOrdering Facility: [facility] Address: [address] [place] [address] Performed By: #### 2 4323-8, 3039-3, ####CHRISTIANITY LABORATORYCLIA [id number] [address] [place], [place] [address] [place] Creatinine [Mass/Vol] 0.64 mg/dL Normal 0.58-0.96 [facility] Comment on above: Order Comment: Roselyn conway Type: BLOOD SPECIMENOrdering Facility: [facility] Address: [address] [facility] [address] Performed By: #### 2 4323-8, 3040-3, ####CHRISTIANITY LABORATORYCLIA [id number] [place] [id number] [place] Creatinine and Glomerular filtration rate.predicted panel (S/P/Bld) 118 mL/min/1.73m??? Normal >=60 [facility] Comment on above: Order Comment: Roselyn conway Type: BLOOD SPECIMENOrdering Facility: [facility] Address: [place] [address] Result Comment: Shelley mated Glomerular Filtration Rate [...] actual GFR. Performed By: #### 2 4323-8, 0-3, ####CHRISTIANITY LABORATORYCLIA [id number] [place] [id number] [place] Glucose [Mass/Vol] 102 mg/dL High 74-99 [facility] Comment on above: Order Comment: Roselyn conway Type: BLOOD SPECIMENOrdering Facility: [facility] Address: [address] [facility] [address] Result Comment: The [place] Diabetes [employer] (ADA) provides guidance for cutoff [...] Standards of Medical Care in Diabetes 2016, [place] [employer]. Diabetes Care. 2016.39(Suppl 1). Performed By: #### 2 4323-8, 0-3, 94883-1 ####CHRISTIANITY LABORATORYCLIA [id number] [place] [id number] [place] Potassium [Moles/Vol] 3.8 mmol/L Normal 3.7-5.1 [facility] Comment on above: Order Comment: Speci men Type: BLOOD SPECIMENOrdering Facility: [facility] Address: [address] [place] [address] Performed By: #### 2 4323-8, 3039-3, ####CHRISTIANITY LABORATORYCLIA [id number] [place] [id number] [place] Protein [Mass/Vol] 8.2 g/dL High 6.3-8.0 [facility] Comment on above: Order Comment: Speci men Type: BLOOD SPECIMENOrdering Facility: [facility] Address: [address] [place] [address] Performed By: #### 2 4323-8, 3, ####CHRISTIANITY LABORATORYCLIA [id number] [place] [id number] [place] Sodium [Moles/Vol] 138 mmol/L Normal 136-144 [facility] Comment on above: Order Comment: Speci men Type: BLOOD SPECIMENOrdering Facility: [facility] Address: [address] [place] [address] Performed By: #### 2 4323-8, 3039-3, ####CHRISTIANITY LABORATORYCLIA [id number] [place] [id number] [place] Urea nitrogen [Mass/Vol] 8 mg/dL Normal 7-21 [facility] Comment on above: Order Comment: Speci men Type: BLOOD SPECIMENOrdering Facility: [facility] Address: [address] [place] [address] Performed By: #### 2 4323-8, 0-3, ####CHRISTIANITY LABORATORYCLIA [id number] [place] [id number] [place] ECG COMPLETEon 06-22-2023 ECG COMPLETE Ventricular Rate : 1 05 BPM Atrial Rate : 103 BPM P-R Interval : 152 ms QRS Duration : 77 ms Q-T Interval : 324 ms QTC Calculation(Bazett) : 429 ms Calculated P [place] : 42 degrees Calculated R [place] : 56 degrees Calculated T [place] : 49 degrees Sinus tachycardia Low voltage, precordial leads Anteroseptal infarct, old Abnormal ECG no stemi 1815 Confirmed by MD SEN BRENT ([id number]), web content editor STEPHENIE ERIC ([id number]) on 06/23/2023 12:09:36 PM NAME : ANTONIA NOYOLA PID : [id number] : 1985 Gender : Female Race : ORD : [id number] Procedure Date : Jun 22 2023 18:10:13 Edit Date : Jun 23 2023 12:09:40 Diagnosis: Sinus tachycardia Low voltage, precordial leads Anteroseptal infarct, old Abnormal ECG no stemi 1815 Confirmed by MD SEN BRENT ([id number]), web content editor STEPHENIE ERIC ([id number]) on 06/23/2023 12:09:36 PM Test Reason : Tachycardia Location : 502 : [facility] ED Overread By : MD SEN BRENT Edited By : STEPHENIE ERIC Referred By : , Acquired by : DAVID [facility] ED NOTEon 06-22-2023 ED NOTE HNO ID: [id number] Author: DENNIS CAMARGO RN Service: ? Author Type: Registered Nurse Type: ED Notes Filed: 06/22/2023 21:56 Note Text: Assumed care of pt at this time and received report from previous RN. [facility] ED NOTE HNO ID: [id number] Author: MATILDE DAVIS RN Service: Nursing Author Type: Registered Nurse Type: ED Notes Filed: 06/22/2023 17:38 Note Text: Pt presents with LLQ pain that radiates to back that began this morning but worsened one hour prior to arrival. Denies urinary complaints. [facility] ED PROV NOTEon 06-22-2023 ED PROV NOTE HNO ID: [id number] Author: EVGENY SEN MD Service: Emergency Medicine [...] with some relief. History provided by: Patient cardiac monitor used: No PAST MEDICAL HISTORY Diagnosis Date [...] Hyperlipidemia Father Heart Father bypass surgery, stents, [place] Social History Tobacco Use Smoking status: Never [...] Value Ref Range (more content not included)... [facility] ED Triage Noteon 06-22-2023 ED Triage Note HNO ID: [id number] Author: TABBY LUCIANO PA-C Service: ? Author Type: Physician Bread Baker Type: ED Triage Notes Filed: 06/22/2023 17:43 [...] the treating team. SIGNATURE: Tabby Luciano PA-C [facility] HCG Preg Ur Qlon 06-22-2023 HCG ( test) Ql (U) Negative Normal Negative [facility] Comment on above: Order Comment: Speci men Type: URINE SPECIMENOrdering Facility: [facility] Address: [address] [place] [address], [place] [address] Result Comment: This test is intended to aid in the early detection of . Very dilute urine samples, as indicated by a low specific gravity, may not contain senior patient account representative levels of hCG. This test [...] for . Performed By: #### 2 106-3 ####CHRISTIANITY LABORATORYCLIA [id number] [place] [id number] [place] Lipase SerPl-cCncon 06-22-19 24 Lipase [Catalytic activity/Vol] 34 U/L Normal 16-61 [facility] Comment on above: Order Comment: Speci men Type: BLOOD SPECIMENOrdering Facility: [facility] Address: [address] [place] [address] Performed By: #### 2 4323-8, 3040-3, ####[facility] HOSPITALCLIA [id number] [place] [id number] [place] Magnesium SerPl-mCncon 06-22 Magnesium [Mass/Vol] 2.2 mg/dL Normal 1.7-2.3 [facility] Comment on above: Order Comment: Speci [facility] Type: BLOOD SPECIMENOrdering Facility: [facility] Address: [place] [address] Performed By: #### 2 4323-8, 3040-3, ####[facility] HOSPITALCLIA [id number] [place] [id number] [place] US DOPPLER COMPLETEon 2023 US DOPPLER COMPLETE * * *Final Report* * * DATE OF EXAM: Jun 22 2023 6:54PM [facility] 1033 - US DOPPLER COMPLETE [...] and stored in a permanent archive. MQ: [facility]_2021 COMPARISON: None RESULT: Uterus: -Size: 8.1 [...] Normal sonographic appearance of the female pelvis. Telecom Network Manager: ANTONIO Transcribe Date/Time: Jun 22 2023 7:44P Dictated by : Vasu BURNS MD This examination was interpreted and the report reviewed and electronically signed by: Vasu BURNS MD on Jun 22 2023 7:48PM EST [id number] [facility] FEMALE PELVIS TRANSABD LT Don 06-22-2023 [...] and stored in a permanent archive. MQ: [facility]_2021 COMPARISON: None RESULT: Uterus: -Size: 8.1 [...] Normal sonographic appearance of the female pelvis. Telecom Network Manager: ANTONOI Transcribe Date/Time: Jun 22 2023 7:44P Dictated by : Vasu BURNS MD This examination was interpreted and the report reviewed and electronically signed by: Vasu BURNS MD on Jun 22 2023 7:48PM EST [id number] [facility] US FEMALE PELVIS TRANSVAGon [...] and stored in a permanent archive. MQ: [facility]_2021 COMPARISON: None RESULT: Uterus: -Size: 8.1 [...] Normal sonographic appearance of the female pelvis. Telecom Network Manager: ANTONIO Transcribe Date/Time: Jun 22 2023 7:44P Dictated by : Vasu BURNS MD This examination was interpreted and the report reviewed and electronically signed by: Vasu BURNS MD on Vikas 10 2024 7:48PM EST [id number] Normal [facility] Urinalysis complete panel (U )on 06-22-2023 Bacteria LM.HPF (Urine sed) [#/Area] Few Abnormal None Seen [facility] Comment on above: Order Comment: Speci men Type: URINE SPECIMENOrdering Facility: [facility] Address: [address] [place] [address] Performed By: #### 2 4356-8 ####CHRISTIANITY LABORATORYCLIA [id number] [address] [place] [address] [place] Bilirubin Ql (U) Negative Normal Negative [facility] Comment on above: Order Comment: Speci men Type: URINE SPECIMENOrdering Facility: [facility] Address: [address] [place] [address] Performed By: #### 2 4356-8 ####CHRISTIANITY LABORATORYCLIA [id number] [address] [place] [address] [place] Clarity (Unsp spec) Clear Normal Clear [facility] Comment on above: Order Comment: Speci men Type: URINE SPECIMENOrdering Facility: [facility] Address: [address] [place] [address] Performed By: #### 2 4356-8 ####CHRISTIANITY LABORATORYCLIA [id number] [address] [place] [address] [place] Color (U) Yellow Normal Yellow [facility] Comment on above: Order Comment: Speci men Type: URINE SPECIMENOrdering Facility: [facility] Address: [address] [place] [address] Performed By: #### 2 4356-8 ####CHRISTIANITY LABORATORYCLIA [id number] [place] [address] [place] Epithelial cells LM.HPF (Urine sed) [#/Area] Few Normal [facility] Comment on above: Order Comment: Speci men Type: URINE SPECIMENOrdering Facility: [facility] Address: [address] [place] [address] Performed By: #### 2 4356-8 ####CHRISTIANITY LABORATORYCLIA [id number] [address] [place] [address] Glucose Test strip (U) [Mass/Vol] Negative Normal Negative [facility] Comment on above: Order Comment: Speci men Type: URINE SPECIMENOrdering Facility: [facility] Address: [address] [place] [address] Performed By: #### 2 4356-8 ####CHRISTIANITY LABORATORYCLIA [id number] [address] [place] [address] [place] Hemoglobin Ql (U) Negative Normal Negative [facility] Comment on above: Order Comment: Speci men Type: URINE SPECIMENOrdering Facility: [facility] Address: [address] [place] [address] Performed By: #### 2 4356-8 ####CHRISTIANITY LABORATORYCLIA [id number] [address] [place] [address] [place] Ketones Ql (U) Trace Abnormal Negative [facility] Comment on above: Order Comment: Speci men Type: URINE SPECIMENOrdering Facility: [facility] Address: [address] [place] [address] Performed By: #### 2 4356-8 ####CHRISTIANITY LABORATORYCLIA [id number] [address] [place] [address] [place] Leukocyte esterase Test strip Ql (U) Negative Normal Negative [facility] Comment on above: Order Comment: Speci men Type: URINE SPECIMENOrdering Facility: [facility] Address: [address] [place] [address] Performed By: #### 2 4356-8 ####CHRISTIANITY LABORATORYCLIA [id number] [address] [place] [address] [place] Nitrite Ql (U) Negative Normal Negative [facility] Comment on above: Order Comment: Speci men Type: URINE SPECIMENOrdering Facility: [facility] Address: [address] [place] [address] Performed By: #### 2 4356-8 ####CHRISTIANITY LABORATORYCLIA [id number] [address] [place] [address] [place] pH (U) 6.5 [pH] Normal 5.0-8.0 [facility] Comment on above: Order Comment: Speci men Type: URINE SPECIMENOrdering Facility: [facility] Address: [address] [place] [address] Performed By: #### 2 4356-8 ####CHRISTIANITY LABORATORYCLIA [id number] [address] [place], [place] [address] [place] Protein (U) [Mass/Vol] Negative Normal Negative [facility] Comment on above: Order Comment: Speci men Type: URINE SPECIMENOrdering Facility: [facility] Address: [address] [place] [address] Performed By: #### 2 4356-8 ####CHRISTIANITY LABORATORYCLIA [id number] [address] [place] [address] [place] RBC LM.HPF (Urine sed) [#/Area] 0-3 /HPF Normal 0-3 /HPF [facility] Comment on above: Order Comment: Speci men Type: URINE SPECIMENOrdering Facility: [facility] Address: [address] [place] [address] Performed By: #### 2 4356-8 ####CHRISTIANITY LABORATORYCLIA [id number] [place] [address] [place] Specific gravity (U) [Rel density] 1.020 Normal 1.005-1.030 [facility] Comment on above: Order Comment: Speci men Type: URINE SPECIMENOrdering Facility: [facility] Address: [address] [place] [address] Performed By: #### 2 4356-8 ####CHRISTIANITY LABORATORYCLIA [id number] [address] [place] Urobilinogen Ql (U) 1.0 EU/dL Normal 0.2-1.0 EU/dL [facility] Comment on above: Order Comment: Speci men Type: URINE SPECIMENOrdering Facility: [facility] Address: [address] [place] [address] Performed By: #### 2 4356-8 ####CHRISTIANITY LABORATORYCLIA [id number] [place] [address] [place] WBC LM.HPF (Urine sed) [#/Area] 0-5 /HPF Normal 0-5 /HPF [facility] Comment on above: Order Comment: Speci men Type: URINE SPECIMENOrdering Facility: [facility] Address: [place] [address] Performed By: #### 2 4356-8 ####CHRISTIAN[facility] LABORATORYCLIA [id number] [address] [place] Alanine aminotransferase [En zymatic activity/volume] in Serum or PlasmaOrdered By: Elier Jackson on 04-30-2023 ALT [Catalytic activity/Vol] 15 U/L Normal 7-52 [facility] Comment on above: Performed By: #### H CGQNT #### [facility] [address] [place] [address] Albumin [Mass/volume] in Ser um or Plasma by Bromocresol green (BCG) dye binding methoOrdered By: Elier Jackson on 04-30-2023 Albumin BCG dye [Mass/Vol] 4.3 g/dL 3.5-5.7 [facility] Alkaline phosphatase [Enzyma tic activity/volume] in Serum or PlasmaOrdered By: Elier Jackson on 04-30-2023 ALP [Catalytic activity/Vol] 68 U/L Normal 34-104 [facility] Comment on above: Performed By: #### H CGQNT #### [facility] [address] [place] [address] [place] Aspartate aminotransferase [ Enzymatic activity/volume] in Serum or PlasmaOrdered By: Elier Jackson on 04-30-2023 AST [Catalytic activity/Vol] 17 U/L Normal 13-39 [facility] Comment on above: Performed By: #### H CGQNT #### [facility] [address] [place] [address] [place] Automated basophil %Ordered By: Elier Jackson on 04-30-2023 Basophils/100 WBC (Bld) 1.3 % Normal . [facility] Comment on above: Performed By: #### H CGQNT #### [facility] [address] [place] [address] [place] Automated basophil countOrde red By: Elier Velásquezarleen on 04-30-2023 Basophils (Bld) [#/Vol] 0.0 10*3/uL Normal 0.0-0.2 [facility] Comment on above: Result Comment: PERF ORMED BY: [place] [address] PATHOLOGIST HYPERION DEVELOPER FARNAZ ZULETA M.D. Performed By: #### H CGQNT #### [address] Automated blood monocyte cou ntOrdered By: Elier Jackson on 04-30-2023 Monocytes (Bld) [#/Vol] 0.3 10*3/uL Normal 0.0-0.8 [facility] Comment on above: Performed By: #### H CGQNT #### [address] Automated eosinophil %Ordere d By: Elier Jackson on 04-30-2023 Eosinophils/100 WBC (Bld) 0.6 % Normal . [facility] Comment on above: Performed By: #### H CGQNT #### [address] Automated eosinophil countOr dered By: Elierjaqui Jackson on 04-30-2023 Eosinophils (Bld) [#/Vol] 0.0 10*3/uL Normal 0.0-0.45 [facility] Comment on above: Performed By: #### H CGQNT #### [address] Automated erythrocytes count in urine sediment (number/area)Ordered By: Elier Jackson on 04-30-2023 RBC Auto (Urine sed) [#/Area] 5-9 [HPF] 0-4 [facility] Automated leukocytes count i n urine sediment (number/area)Ordered By: Elier Jackson on 04-30-2023 WBC Auto (Urine sed) [#/Area] 0-1 [HPF] 0-4 [facility] Automated monocyte %Ordered By: Elier Jackson on 04-30-2023 Monocytes/100 WBC (Bld) 7.0 % Normal . [facility] Comment on above: Performed By: #### H CGQNT #### [facility] [facility] [address] [place] [address] Automated neutrophil %Ordere d By: Elier Jackson on 04-30-2023 Neutrophils/100 WBC (Bld) 46.9 % Normal . [facility] Comment on above: Performed By: #### H CGQNT #### [address] Automated urine color determ inationOrdered By: Elier Jackson on 04-30-2023 Color (U) Yellow Normal Yellow [facility] Comment on above: Order Comment: Name Collection Type:: Clean-Voided Midstream Performed By: #### U HCG, ADDONUAPLUS #### [address] Basic Metabolic Panelon 04-13 Creatinine Clr Calc Pharmacy 107.67 Normal [facility] Comment on above: Performed By: #### H CGQNT #### [address] GFR/1.73 sq M.predicted MDRD (S/P/Bld) [Vol rate/Area] mL/min/{1.73_m2} Normal [facility] Comment on above: Performed By: #### H CGQNT #### [address] Bilirubin Test strip Ql (U)O rdered By: Elier Jackson on 04-30-2023 Bilirubin Ql (U) Negative Negative [facility] Bilirubin.direct [Mass/volum e] in Serum or PlasmaOrdered By: Elier Jackson on 04-30-2023 Bilirubin.direct [Mass/Vol] 0.10 mg/dL 0.03-0.18 [facility] Bilirubin.total [Mass/volume ] in Serum or PlasmaOrdered By: Elier Jackson on 04-30-2023 Bilirubin [Mass/Vol] 0.4 mg/dL Normal 0.3-1.0 [facility] Comment on above: Performed By: #### H CGQNT #### [address] Calcium [Mass/volume] in Ser um or PlasmaOrdered By: Elierjaqui Jackson on 04-30-2023 Calcium [Mass/Vol] 9.2 mg/dL Normal 8.6-10.3 [facility] Comment on above: Performed By: #### H CGQNT #### [address] Carbon dioxide, total [Moles /volume] in Serum or PlasmaOrdered By: Elier Jackson on 04-30-2023 CO2 [Moles/Vol] 20.1 mmol/L Low 21.0-31.0 [facility] Comment on above: Performed By: #### H CGQNT #### [address] Chloride [Moles/volume] in S binu or PlasmaOrdered By: Elier Jackson on 04-30-2023 Chloride [Moles/Vol] 109 mmol/L High 98-107 [facility] Comment on above: Performed By: #### H CGQNT #### [address] Complete Blood Count Auto Di ffon 04-30-2023 Mean Corpuscular HGB Conc 34.7 g/dL Normal 32.0-35.0 [facility] Comment on above: Performed By: #### H CGQNT #### [place] [address] [place] Monocytes/100 WBC (Bld) 16.58 % Normal 0.00-20.00 [facility] Comment on above: Performed By: #### H CGQNT #### [place] [address] [place] NRBC% 0.1 /100{WBC} Normal 0-0.5 [facility] Comment on above: Performed By: #### H CGQNT #### [address] Creatinine [Mass/volume] in Serum or PlasmaOrdered By: Elier Jackson on 04-30-2023 Creatinine [Mass/Vol] 0.65 mg/dL Normal 0.60-1.20 [facility] Comment on above: Performed By: #### H CGQNT #### [facility] [address] [place] [address] [place] Dipstick and Microscopicon 1 06-30-2022 Appearance (U) Clear Normal Clear [facility] Comment on above: Order Comment: Name Collection Type:: Clean-Voided Midstream Performed By: #### U HCG, ADDONUAPLUS #### [facility] [address] [place] [address] [place] Bacteria,Urine None Seen Normal None Seen [facility] Comment on above: Order Comment: Name Collection Type:: Clean-Voided Midstream Performed By: #### U HCG, ADDONUAPLUS #### [facility] [address] [place] [address] [place] Bilirubin,Urine Negative Normal Negative [facility] Comment on above: Order Comment: Name Collection Type:: Clean-Voided Midstream Performed By: #### U HCG, ADDONUAPLUS #### [facility] [address] [place] [address] [place] Glucose Ql (U) Normal Normal Normal [facility] Comment on above: Order Comment: Name Collection Type:: Clean-Voided Midstream Performed By: #### U HCG, ADDONUAPLUS #### [facility] [address] [place] [address] [place] Hyaline Casts,Urine 0-8 Normal 0-8 [facility] Comment on above: Order Comment: Name Collection Type:: Clean-Voided Midstream Performed By: #### U HCG, ADDONUAPLUS #### [facility] [address] [place] [address] [place] Ketones Ql (U) Negative Normal Negative [facility] Comment on above: Order Comment: Name Collection Type:: Clean-Voided Midstream Performed By: #### U HCG, ADDONUAPLUS #### [facility] [address] [place] [address] [place] Leukocyte esterase Test strip Ql (U) Negative Normal Negative [facility] Comment on above: Order Comment: Name Collection Type:: Clean-Voided Midstream Performed By: #### U HCG, ADDONUAPLUS #### [address] Nitrite,Urine Negative Normal Negative [facility] Comment on above: Order Comment: Name Collection Type:: Clean-Voided Midstream Performed By: #### U HCG, ADDONUAPLUS #### [address] Occult Blood,Urine 2+ High Negative [facility] Comment on above: Order Comment: Name Collection Type:: Clean-Voided Midstream Performed By: #### U HCG, ADDONUAPLUS #### [address] Protein,Urine Negative Normal Negative [facility] Comment on above: Order Comment: Name Collection Type:: Clean-Voided Midstream Performed By: #### U HCG, ADDONUAPLUS #### [address] RBC,Urine 5-9 High 0-4 [facility] Comment on above: Order Comment: Name Collection Type:: Clean-Voided Midstream Performed By: #### U HCG, ADDONUAPLUS #### [address] Specificy [place],Urine 1.018 Normal 1.001-1.030 [facility] Comment on above: Order Comment: Name Collection Type:: Clean-Voided Midstream Performed By: #### U HCG, ADDONUAPLUS #### [place] [address] [place] Squamous Epithelial Cell,Urine 0-1 Normal 0-2 [facility] Comment on above: Order Comment: Name Collection Type:: Clean-Voided Midstream Performed By: #### U HCG, ADDONUAPLUS #### [address] Urobilinogen,Urine Normal Normal Normal [facility] Comment on above: Order Comment: Name Collection Type:: Clean-Voided Midstream Performed By: #### U HCG, ADDONUAPLUS #### [facility] [address] WBC LM.HPF (Urine sed) [#/Area] 0 /[HPF] Normal 0-4 [facility] Comment on above: Order Comment: Name Collection Type:: Clean-Voided Midstream Performed By: #### U HCG, ADDONUAPLUS #### [facility] [address] Erythrocyte distribution wid th [Ratio] by Automated countOrdered By: Elier Jackson on 04-30-2023 Erythrocyte distribution width (RBC) [Ratio] 16.8 % High 11.9-15.3 [facility] Comment on above: Performed By: #### H CGQNT #### [address] Erythrocytes [#/volume] in B lood by Automated countOrdered By: Elier Jackson on 04-30-2023 RBC (Bld) [#/Vol] 3.68 10*6/uL Normal 3.60-5.00 [facility] Comment on above: Performed By: #### H CGQNT #### [address] Glucose [Mass/volume] in Ser um or PlasmaOrdered By: Elier Jackson on 04-30-2023 Glucose [Mass/Vol] 100 mg/dL Normal 70-100 [facility] Comment on above: ADA recommended refe rence rangeRandom Glucose Reference Range is dependent on time and content of last meal. Glucose of more than 200 mg/dL in a nonstressed, ambulatory subject supports the diagnosis of Diabetes Mellitus. Result Comment: [place] om Glucose Reference Range is dependent on time and content of last meal. Glucose of more than 200 mg/dL in a nonstressed, ambulatory subject supports the diagnosis of Diabetes Mellitus. ADA recommended reference range Performed By: #### H CGQNT #### [address] HCG ( test) IA.rapi d Ql (U)Ordered By: Elier Jackson on 04-30-2023 HCG ( test) Ql (U) Negative [facility] HCG,Urineon 04-30-2023 Beta HCG ( test) Ql (U) Negative Normal [facility] Comment on above: Order Comment: Name Collection Type:: Clean-Voided Midstream Result Comment: PERF ORMED BY: [place] [address] PATHOLOGIST HYPERION DEVELOPER FARNAZ ZULETA M.D. Performed By: #### U HCG, ADDONUAPLUS #### [address] Hematocrit [Volume Fraction] of Blood by Automated countOrdered By: Elier Jackson on 04-30-2023 Hematocrit (Bld) [Volume fraction] 32.3 % Low 34.0-46.4 [facility] Comment on above: Performed By: #### H CGQNT #### [address] Hemoglobin [Mass/volume] in BloodOrdered By: Elier Jackson on 04-30-2023 Hemoglobin (Bld) [Mass/Vol] 11.2 g/dL Low 11.8-15.4 [facility] Comment on above: Performed By: #### H CGQNT #### [address] Hepatic Panelon 04-30-2023 Albumin [Mass/Vol] 4.3 g/dL Normal 3.5-5.7 [facility] Comment on above: Performed By: #### H CGQNT #### [address] Bilirubin,Indirect 0.3 mg/dL Normal [facility] Comment on above: Performed By: #### H CGQNT #### [address] Bilirubin.indirect [Mass/Vol] 0.10 mg/dL Normal 0.03-0.18 [facility] Comment on above: Performed By: #### H CGQNT #### [address] Ketones Auto test strip (U) [Mass/Vol]Ordered By: Elier Jackson on 04-30-2023 Ketones (U) [Mass/Vol] Negative Negative [facility] - UrinalysisOrder ed By: Elier Jackson on 04-30-2023 Hyaline casts LM Ql (Urine sed) 0-8 [LPF] 0-8 [facility] Leukocytes [#/volume] correc flo for nucleated erythrocytes in Blood by Automated counOrdered By: Elier Jackson on 04-30-2023 WBC corrected for nucl RBC Auto (Bld) [#/Vol] 3.6 10*3/uL 3.8-11.6 [facility] Leukocytes [#/volume] in Blo od by Automated countOrdered By: Elier Jackson on 04-30-2023 WBC (Bld) [#/Vol] 3.6 10*3/uL Low 3.8-11.6 [facility] Comment on above: Performed By: #### H CGQNT #### [facility] [address] [place] [address] [place] Lipase [Enzymatic activity/v olume] in Serum or PlasmaOrdered By: Elier Jackson on 04-30-2023 Lipase [Catalytic activity/Vol] 31.0 U/L Normal 11.0-82.0 [facility] Comment on above: Result Comment: PERF ORMED BY: [place] [address] PATHOLOGIST HYPERION DEVELOPER FARNAZ ZULETA M.D. Performed By: #### H CGQNT #### [facility] [address] [place] [address] [place] Lymphocytes [#/volume] in Bl ood by Automated countOrdered By: Elier Jackson on 04-30-2023 Lymphocytes (Bld) [#/Vol] 1.6 10*3/uL Normal 1.00-4.8 [facility] Comment on above: Performed By: #### H CGQNT #### [facility] [address] [place] [address] [place] Lymphocytes/100 leukocytes i n Blood by Automated countOrdered By: Elier Jackson on 04-30-2023 Lymphocytes/100 WBC (Bld) 44.2 % Normal . [facility] Comment on above: Performed By: #### H CGQNT #### [facility] [address] [place] [address] MCH [Entitic mass] by Automa flo countOrdered By: Elier Jackson on 04-30-2023 MCH (RBC) [Entitic mass] 30.4 pg Normal 24.7-34.3 [facility] Comment on above: Performed By: #### H CGQNT #### [address] MCHC Auto (RBC) [Mass/Vol]Or dered By: Elier Jackson on 04-30-2023 MCHC (RBC) [Mass/Vol] 34.7 g/dL 32.0-35.0 [facility] MCV [Entitic volume] by Auto mated countOrdered By: Elier Jackson on 04-30-2023 MCV (RBC) [Entitic vol] 87.6 fL Normal 80-100 [facility] Comment on above: Performed By: #### H CGQNT #### [address] Monocyte distribution width [Entitic volume] in Blood by AutomatedOrdered By: Elier Jackson on 04-30-2023 Monocyte distribution width Auto (Bld) [Entitic vol] 16.58 % 0.00-20.00 [facility] Neutrophils [#/volume] in Bl ood by Automated countOrdered By: Elier Jackson on 04-30-2023 Neutrophils (Bld) [#/Vol] 1.7 10*3/uL Low 1.8-7.7 [facility] Comment on above: Performed By: #### H CGQNT #### [facility] [address] [place] [address] Nitrite Test strip Ql (U)Ord ered By: Elier Jackson on 04-30-2023 Nitrite Ql (U) Negative Negative [facility] No Panel InformationOrdered By: Elier Jackson on 04-30-2023 Estimated GFR (CKD-EPI) > 60.0 mL/Min [facility] Creatinine Clearance (Chem 107.67 [facility] Nucleated erythrocytes [Pres ence] in Blood by Automated countOrdered By: Elier Jackson on 04-30-2023 Nucleated RBC Auto Ql (Bld) 0.1 /100{WBC} 0-0.5 [facility] Platelet mean volume [Entiti c volume] in Blood by Automated countOrdered By: Elier Jackson on 04-30-2023 Platelet mean volume (Bld) [Entitic vol] 8.0 fL Normal 6.3-10.7 [facility] Comment on above: Performed By: #### H CGQNT #### [facility] [address] [place] [address] [place] Platelets [#/volume] in Bloo d by Automated countOrdered By: Elier Jackson on 04-30-2023 Platelets (Bld) [#/Vol] 415 10*3/uL Normal 150-450 [facility] Comment on above: Performed By: #### H CGQNT #### [facility] [address] [place] [address] Potassium [Moles/volume] in Serum or PlasmaOrdered By: Elier Jackson on 04-30-2023 Potassium [Moles/Vol] 3.8 mmol/L Normal 3.5-5.1 [facility] Comment on above: Performed By: #### H CGQNT #### [address] Protein Auto test strip (U) [Mass/Vol]Ordered By: Elier Jackson on 04-30-2023 Protein (U) [Mass/Vol] Negative Negative [facility] Protein [Mass/volume] in Ser um or PlasmaOrdered By: Elier Jackson on 04-30-2023 Protein [Mass/Vol] 7.6 g/dL Normal 6.4-8.9 [facility] Comment on above: Performed By: #### H CGQNT #### [address] Serum globulin measurement b y calculation (mass/volume)Ordered By: Elier Jackson on 04-30-2023 Globulin (S) [Mass/Vol] 3.3 g/dL Normal [facility] Comment on above: Performed By: #### H CGQNT #### [address] Serum or plasma albumin/glob ulin mass ratioOrdered By: Elier Jackson on 04-30-2023 Albumin/Globulin [Mass ratio] 1.3 {ratio} Normal [facility] Comment on above: Performed By: #### H CGQNT #### [address] Serum or plasma anion gap de terminationOrdered By: Elier Jackson on 04-30-2023 Anion gap [Moles/Vol] 14.7 mmol/L Normal 6.0-15.0 [facility] Comment on above: Performed By: #### H CGQNT #### [address] Serum or plasma non-glucuron idated bilirubin measurement (mass/volume)Ordered By: Elier Jackson on 04-30-2023 Bilirubin.indirect [Mass/Vol] 0.3 mg/dL [facility] Sodium [Moles/volume] in Ser um or PlasmaOrdered By: Elier Jackson on 04-30-2023 Sodium [Moles/Vol] 140 mmol/L Normal 136-145 [facility] Comment on above: Performed By: #### H CGQNT #### [address] Specific gravity Auto test s trip (U) [Rel density]Ordered By: Elier Jackson on 04-30-2023 Specific gravity (U) [Rel density] 1.018 1.001-1.030 [facility] Squamous epithelial cells de tection in urine sediment by light microscopyOrdered By: Elier Jackson on 04-30-2023 Epithelial cells.squamous LM Ql (Urine sed) 0-1 [HPF] 0-2 [facility] US pelvic completeon 023 US pelvic complete [facility] [place] [address] [place] [address] Ultrasound Report Signed Patient: Antonia Noyola MR#: [id number] : 1985 Acct:[id number] Age/Sex: 38 / F ADM Date: 04/30/23 Loc: ER Room: Type: [facility] ER Attending Dr: Ordering Provider: Elier Jackson DO Date of Service: 04/30/23 US/US pelvic complete: L pelvic pain ([id number]) US/US transvaginal: LT PELVIC PAIN Copies to: [...] Betancur Jr., D.O.04/30/2023 6:24 PM Dictation Location: [place] [address] Tech: Brooke Hodge Transcribed By: [facility] 04/30/231823 Dictated By: Dennis Betancur Jr, DO 04/30/231820 Signed By: 04/30/231823 Normal [facility] Urea nitrogen [Mass/volume] in Serum or PlasmaOrdered By: Elier Jackson on 04-30-2023 Urea nitrogen [Mass/Vol] 6 mg/dL Low 7-25 [facility] Comment on above: Performed By: #### H CGQNT #### [address] Urine bacteria detection by automated methodOrdered By: Elier Jackson on 04-30-2023 Bacteria Auto Ql (U) None seen None Seen [facility] Urine clarity by refractomet ry automatedOrdered By: Elier Jackson on 04-30-2023 Clarity Refractometry automated (U) Clear Clear [facility] Urine glucose measurement by automated test strip (mass/volume)Ordered By: Elier Jackson on 04-30-2023 Glucose Auto test strip (U) [Mass/Vol] Normal mg/dL Normal [facility] Urine hemoglobin detection b y automated test stripOrdered By: Elier Jackson on 04-30-2023 Hemoglobin Auto test strip Ql (U) 2+ Negative [facility] Urine leukocyte esterase det ection by automated test stripOrdered By: Elier Jackson on 04-30-2023 Leukocyte esterase Auto test strip Ql (U) Negative Negative [facility] Urine pH measurement by auto mated test stripOrdered By: Elier Jackson on 04-30-2023 pH (U) 5.5 [pH] Normal 5.0-9.0 [facility] Comment on above: Order Comment: Name Collection Type:: Clean-Voided Midstream Performed By: #### U HCG, ADDONUAPLUS #### [facility] [address] [place] [address] Urobilinogen Auto test strip (U) [Mass/Vol]Ordered By: Elier Jackson on 04-30-2023 Urobilinogen (U) [Mass/Vol] Normal mg/dL Normal [facility] CHEMISTRYOrdered By: SYSTEM SYSTEM on 04-24-2023 Anion gap [Moles/Vol] 14 mmol/L Normal 6 - 16 mEq/L [facility] Remisol Calcium [Mass/Vol] 9.4 mg/dL Normal 8.9 - 11. 1 mg/dL [facility] Chloride [Moles/Vol] 105 mmol/L Normal 101 - 1 11 mmol/L [facility] CO2 [Moles/Vol] 23 mmol/L Normal 21 - 31 mmol/L [facility] Creatinine [Mass/Vol] 0.7 mg/dL Normal 0.5 - 1.3 mg/dL [facility] Remisol GFR/1.73 sq M.predicted among non-blacks MDRD (S/P/Bld) [Vol rate/Area] 115 mL/min/1.73 m2 Normal >=59mL/min/ 1.73 m2 [facility] Chem S Comment on above: Interpretive Data: [...] ratio] 9 mg/mg Low 10 - 20 [facility] HEMATOLOGYOrdered By: SYSTEM SYSTEM on 04-24-2023 [...] PM) Normal Negative [facility] UA Auto SS [place].plasma/[place]. RBC (Bld) [Mass ratio] 0-3 /HPF Normal [...] [facility] UA Auto SS Urobilinogen Qn (U) [id number] {Ivone'U}/dL Normal 0.0 - 1.0 EU/dL [facility] UA Auto SS WBC Auto Ql (U) Trace *ABN* (04/24/23 2:56 PM) Invalid Interpretation Code Negative [facility] UA Auto SS WBC LM.HPF (Urine sed) [#/Area] 0-5 /HPF Normal 0-5/HPF [facility] UA Auto SS Anisocytosis [Presence] in B lood by Light microscopyOrdered By: Ming Childress on 04-02-2023 Anisocytosis Ql (Bld) Moderate Normal [facility] Comment on above: Performed By: #### U HCG, ADDONUAPLUS #### [address] Automated erythrocytes count in urine sediment (number/area)Ordered By: Ming Childress on 04-02-2023 RBC Auto (Urine sed) [#/Area] 20-49 [HPF] 0-4 [facility] Automated leukocytes count i n urine sediment (number/area)Ordered By: Ming Childress on 04-02-2023 WBC Auto (Urine sed) [#/Area] 3-4 [HPF] 0-4 [facility] Automated urine color determ inationOrdered By: Ming Childress on 04-02-2023 Color (U) Yellow Normal Yellow [facility] Comment on above: Order Comment: Name Collection Type:: Clean-Voided Midstream Performed By: #### U HCG, ADDONUAPLUS #### [address] Basic Metabolic Panelon 03-14 Creatinine Clr Calc Pharmacy 97.72 Normal [facility] Comment on above: Result Comment: PERF ORMED BY: [place] [address] PATHOLOGIST HYPERION DEVELOPER FARNAZ ZULETA M.D. Performed By: #### U HCG, ADDONUAPLUS #### [address] GFR/1.73 sq M.predicted MDRD (S/P/Bld) [Vol rate/Area] mL/min/{1.73_m2} Normal [facility] Comment on above: Performed By: #### U HCG, ADDONUAPLUS #### [address] Basophils Auto (Bld) [#/Vol] Ordered By: Ming Childress on 04-02-2023 Basophils (Bld) [#/Vol] N/A [facility] Basophils/100 WBC Auto (Bld) Ordered By: Ming Childress on 04-02-2023 Basophils/100 WBC (Bld) N/A [facility] Basophils/100 leukocytes in Blood by Manual countOrdered By: Ming Childress on 04-02-2023 Basophils/100 WBC (Bld) 1 % Normal 0-2 [facility] Comment on above: Performed By: #### U HCG, ADDONUAPLUS #### [facility] [address] Bilirubin Test strip Ql (U)O rdered By: Ming Monroe on 04-02-2023 Bilirubin Ql (U) Negative Negative [facility] Calcium [Mass/volume] in Ser um or PlasmaOrdered By: Ming Monroe on 04-02-2023 Calcium [Mass/Vol] 9.2 mg/dL Normal 8.6-10.3 [facility] Comment on above: Performed By: #### U HCG, ADDONUAPLUS #### [address] Carbon dioxide, total [Moles /volume] in Serum or PlasmaOrdered By: Ming Childress on 04-02-2023 CO2 [Moles/Vol] 18.5 mmol/L Low 21.0-31.0 [facility] Comment on above: Performed By: #### U HCG, ADDONUAPLUS #### [address] Chloride [Moles/volume] in S binu or PlasmaOrdered By: Ming Childress on 04-02-2023 Chloride [Moles/Vol] 108 mmol/L High 98-107 [facility] Comment on above: Performed By: #### U HCG, ADDONUAPLUS #### [facility] [address] [place] [address] Creatinine [Mass/volume] in Serum or PlasmaOrdered By: Ming Childress on 04-02-2023 Creatinine [Mass/Vol] 0.84 mg/dL Normal 0.60-1.20 [facility] Comment on above: Performed By: #### U HCG, ADDONUAPLUS #### [address] Diff and CBCon 04-02-2023 Hypochromasia Slight Normal [facility] Comment on above: Performed By: #### U HCG, ADDONUAPLUS #### [address] Mean Corpuscular HGB Conc 31.8 g/dL Low 32.0-35.0 [facility] Comment on above: Performed By: #### U HCG, ADDONUAPLUS #### [place] [address] [place] Monocytes/100 WBC (Bld) 18.83 % Normal 0.00-20.00 [facility] Comment on above: Performed By: #### U HCG, ADDONUAPLUS #### [address] Nucleated Red Blood Cell 3 /100{WBC} High 0-0 [facility] Comment on above: Performed By: #### U HCG, ADDONUAPLUS #### [address] Ovalocytes Slight Normal [facility] Comment on above: Performed By: #### U HCG, ADDONUAPLUS #### [address] Platelet Estimate Increased Normal Normal [facility] Comment on above: Performed By: #### U HCG, ADDONUAPLUS #### [address] Platelet Morphology Normal Normal Normal [facility] Comment on above: Result Comment: PERF ORMED BY: [place] [address] PATHOLOGIST HYPERION DEVELOPER FARNAZ ZULETA M.D. Performed By: #### U HCG, ADDONUAPLUS #### [place] [address] [place] Poikilocytosis Slight Normal [facility] Comment on above: Performed By: #### U HCG, ADDONUAPLUS #### [address] Polychromasia Moderate Normal [facility] Comment on above: Performed By: #### U HCG, ADDONUAPLUS #### [address] Smudge Cells Slight Normal [facility] Comment on above: Performed By: #### U HCG, ADDONUAPLUS #### [facility] [address] [place] [address] Toxic Vacuolation Slight Normal [facility] Comment on above: Performed By: #### U HCG, ADDONUAPLUS #### [place] [address] [place] Dipstick and Microscopicon 1 Appearance (U) Clear Normal Clear [facility] Comment on above: Order Comment: Name Collection Type:: Clean-Voided Midstream Performed By: #### U HCG, ADDONUAPLUS #### [address] Bacteria,Urine None Seen Normal None Seen [facility] Comment on above: Order Comment: Name Collection Type:: Clean-Voided Midstream Performed By: #### U HCG, ADDONUAPLUS #### [address] Bilirubin,Urine Negative Normal Negative [facility] Comment on above: Order Comment: Name Collection Type:: Clean-Voided Midstream Performed By: #### U HCG, ADDONUAPLUS #### [address] Glucose Ql (U) Normal Normal Normal [facility] Comment on above: Order Comment: Name Collection Type:: Clean-Voided Midstream Performed By: #### U HCG, ADDONUAPLUS #### [facility] [address] [place] [address] [place] Hyaline Casts,Urine 0-8 Normal 0-8 [facility] Comment on above: Order Comment: Name Collection Type:: Clean-Voided Midstream Performed By: #### U HCG, ADDONUAPLUS #### [facility] [address] [place] [address] [place] Ketones Ql (U) Trace High Negative [facility] Comment on above: Order Comment: Name Collection Type:: Clean-Voided Midstream Performed By: #### U HCG, ADDONUAPLUS #### [facility] [address] [place] [address] Leukocyte esterase Test strip Ql (U) 1+ High Negative [facility] Comment on above: Order Comment: Name Collection Type:: Clean-Voided Midstream Performed By: #### U HCG, ADDONUAPLUS #### [place] [address] [place] Nitrite,Urine Negative Normal Negative [facility] Comment on above: Order Comment: Name Collection Type:: Clean-Voided Midstream Performed By: #### U HCG, ADDONUAPLUS #### [address] Occult Blood,Urine 3+ High Negative [facility] Comment on above: Order Comment: Name Collection Type:: Clean-Voided Midstream Performed By: #### U HCG, ADDONUAPLUS #### [address] Protein,Urine Negative Normal Negative [facility] Comment on above: Order Comment: Name Collection Type:: Clean-Voided Midstream Performed By: #### U HCG, ADDONUAPLUS #### [address] RBC,Urine 20-49 High 0-4 [facility] Comment on above: Order Comment: Name Collection Type:: Clean-Voided Midstream Performed By: #### U HCG, ADDONUAPLUS #### [address] Specificy [place],Urine 1.018 Normal 1.001-1.030 [facility] Comment on above: Order Comment: Name Collection Type:: Clean-Voided Midstream Performed By: #### U HCG, ADDONUAPLUS #### [place] [address] [place] Squamous Epithelial Cell,Urine 3-4 High 0-2 [facility] Comment on above: Order Comment: Name Collection Type:: Clean-Voided Midstream Performed By: #### U HCG, ADDONUAPLUS #### [address] Urobilinogen,Urine Normal Normal Normal [facility] Comment on above: Order Comment: Name Collection Type:: Clean-Voided Midstream Performed By: #### U HCG, ADDONUAPLUS #### [facility] [address] [place] [address] WBC,Urine 3-4 Normal 0-4 [facility] Comment on above: Order Comment: Name Collection Type:: Clean-Voided Midstream Performed By: #### U HCG, ADDONUAPLUS #### [address] Eosinophils Auto (Bld) [#/Vo l]Ordered By: Ming Childress on 04-02-2023 Eosinophils (Bld) [#/Vol] N/A [facility] Eosinophils/100 WBC Auto (Bl d)Ordered By: Ming Childress on 04-02-2023 Eosinophils/100 WBC (Bld) N/A [facility] Eosinophils/100 leukocytes i n Blood by Manual countOrdered By: Ming Childress on 04-02-2023 Eosinophils/100 WBC (Bld) 4 % High 1-3 [facility] Comment on above: Performed By: #### U HCG, ADDONUAPLUS #### [address] Erythrocyte distribution wid th [Ratio] by Automated countOrdered By: Ming Childress on 04-02-2023 Erythrocyte distribution width (RBC) [Ratio] 15.2 % Normal 11.9-15.3 [facility] Comment on above: Performed By: #### U HCG, ADDONUAPLUS #### [place] [address] [place] Erythrocytes [#/volume] in B lood by Automated countOrdered By: Ming Childress on 04-02-2023 RBC (Bld) [#/Vol] 4.67 10*6/uL Normal 3.60-5.00 [facility] Comment on above: Performed By: #### U HCG, ADDONUAPLUS #### [address] Glucose [Mass/volume] in Ser um or PlasmaOrdered By: Ming Childress on 04-02-2023 Glucose [Mass/Vol] 94 mg/dL Normal 70-100 [facility] Comment on above: ADA recommended refe rence rangeRandom Glucose Reference Range is dependent on time and content of last meal. Glucose of more than 200 mg/dL in a nonstressed, ambulatory subject supports the diagnosis of Diabetes Mellitus. Result Comment: [place] Glucose Reference Range is dependent on time and content of last meal. Glucose of more than 200 mg/dL in a nonstressed, ambulatory subject supports the diagnosis of Diabetes Mellitus. ADA recommended reference range Performed By: #### U HCG, ADDONUAPLUS #### [address] HCG ( test) IA.rapi d Ql (U)Ordered By: Ming Childress on 04-02-2023 HCG ( test) Ql (U) Negative [facility] HCG,Urineon 04-02-2023 Beta HCG ( test) Ql (U) Negative Normal [facility] Comment on above: Order Comment: Name Collection Type:: Clean-Voided Midstream Result Comment: PERF ORMED BY: [place] [address] PATHOLOGIST [employer]PER[employer] DEVELOPER FARNAZ ZULETA M.D. Performed By: #### U HCG, ADDONUAPLUS #### [address] Hematocrit [Volume Fraction] of Blood by Automated countOrdered By: Ming Childress on 04-02-2023 Hematocrit (Bld) [Volume fraction] 36.1 % Normal 34.0-46.4 [facility] Comment on above: Performed By: #### U HCG, ADDONUAPLUS #### [address] Hemoglobin [Mass/volume] in BloodOrdered By: Ming Childress on 04-02-2023 Hemoglobin (Bld) [Mass/Vol] 11.5 g/dL Low 11.8-15.4 [facility] Comment on above: Performed By: #### U HCG, ADDONUAPLUS #### [place] [address] [place] Hypochromia LM Ql (Bld)Order ed By: Ming Childress on 04-02-2023 Hypochromia Ql (Bld) Slight [facility] Ketones Auto test strip (U) [Mass/Vol]Ordered By: Ming Childress on 04-02-2023 Ketones (U) [Mass/Vol] Trace Negative [facility] - UrinalysisOrder ed By: Ming Childress on 04-02-2023 Hyaline casts LM Ql (Urine sed) 0-8 [LPF] 0-8 [facility] Leukocytes [#/volume] correc flo for nucleated erythrocytes in Blood by Automated counOrdered By: Ming Childress on 04-02-2023 WBC corrected for nucl RBC Auto (Bld) [#/Vol] 6.8 10*3/uL 3.8-11.6 [facility] Leukocytes [#/volume] in Blo od by Automated countOrdered By: Ming Childress on 04-02-2023 WBC (Bld) [#/Vol] 6.8 10*3/uL Normal 3.8-11.6 [facility] Comment on above: Performed By: #### U HCG, ADDONUAPLUS #### [facility] [address] [place] [address] Lymphocytes Auto (Bld) [#/Vo l]Ordered By: Ming Childress on 04-02-2023 Lymphocytes (Bld) [#/Vol] N/A [facility] Lymphocytes/100 WBC Auto (Bl d)Ordered By: Ming Childress on 04-02-2023 Lymphocytes/100 WBC (Bld) N/A [facility] Lymphocytes/100 leukocytes i n Blood by Manual countOrdered By: Ming Childress on 04-02-2023 Lymphocytes/100 WBC (Bld) 43 % High 18-42 [facility] Comment on above: Performed By: #### U HCG, ADDONUAPLUS #### [facility] [address] [place] [address] [place] MCH [Entitic mass] by Automa flo countOrdered By: Ming Childress on 04-02-2023 MCH (RBC) [Entitic mass] 24.5 pg Low 24.7-34.3 [facility] Comment on above: Performed By: #### U HCG, ADDONUAPLUS #### [facility] [address] [place] [address] MCHC Auto (RBC) [Mass/Vol]Or dered By: Ming Childress on 04-02-2023 MCHC (RBC) [Mass/Vol] 31.8 g/dL 32.0-35.0 [facility] MCV [Entitic volume] by Auto mated countOrdered By: Ming Childress on 04-02-2023 MCV (RBC) [Entitic vol] 77.3 fL Low 80-100 [facility] Comment on above: Performed By: #### U HCG, ADDONUAPLUS #### [facility] [address] [place] [address] Manual blood segmented neutr ophils/100 leukocytesOrdered By: Ming Childress on 04-02-2023 Segmented neutrophils/100 WBC (Bld) 47 % Low 50-70 [facility] Comment on above: Performed By: #### U HCG, ADDONUAPLUS #### [facility] [address] [place] [address] Monocyte distribution width [Entitic volume] in Blood by AutomatedOrdered By: Ming Childress on 04-02-2023 Monocyte distribution width Auto (Bld) [Entitic vol] 18.83 % 0.00-20.00 [facility] Monocytes Auto (Bld) [#/Vol] Ordered By: Ming Childress on 04-02-2023 Monocytes (Bld) [#/Vol] N/A [facility] Monocytes/100 WBC Auto (Bld) Ordered By: Ming Childress on 04-02-2023 Monocytes/100 WBC (Bld) N/A [facility] Monocytes/100 leukocytes in Blood by Manual countOrdered By: Ming hCildress on 04-02-2023 Monocytes/100 WBC (Bld) 5 % Normal 2-11 [facility] Comment on above: Performed By: #### U HCG, ADDONUAPLUS #### [facility] [address] [place] [address] [place] Neutrophils Auto (Bld) [#/Vo l]Ordered By: Ming Childress on 04-02-2023 Neutrophils (Bld) [#/Vol] N/A [facility] Neutrophils/100 WBC Auto (Bl d)Ordered By: Ming Childress on 04-02-2023 Neutrophils/100 WBC (Bld) N/A [facility] Nitrite Test strip Ql (U)Ord ered By: Ming Childress on 04-02-2023 Nitrite Ql (U) Negative Negative [facility] No Panel InformationOrdered By: Ming Childress on 04-02-2023 Estimated GFR (CKD-EPI) > 60.0 mL/Min [facility] Creatinine Clearance (Chem 97.72 [facility] Nucleated RBC/100 WBC Manual cnt (Bld) [Ratio]Ordered By: Ming Childress on 04-02-2023 Nucleated RBC/100 WBC (Bld) [Ratio] 3 /100{WBC} 0-0 [facility] Nucleated erythrocytes [Pres ence] in Blood by Automated countOrdered By: Ming Childress on 04-02-2023 Nucleated RBC Auto Ql (Bld) N/A [facility] Ovalocyte detectionOrdered B y: Ming Childress on 04-02-2023 Ovalocytes LM Ql (Bld) [facility]light [facility] Platelet adequacy [Presence] in Blood by Light microscopyOrdered By: Ming Childress on 04-02-2023 Platelets LM Ql (Bld) Increased Normal [facility] Platelet mean volume [Entiti c volume] in Blood by Automated countOrdered By: Ming Childress on 04-02-2023 Platelet mean volume (Bld) [Entitic vol] 8.1 fL Normal 6.3-10.7 [facility] Comment on above: Result Comment: PERF ORMED BY: [place] [address] PATHOLOGIST [employer]PERION DEVELOPER FARNAZ ZULETA M.D. Performed By: #### U HCG, ADDONUAPLUS #### [facility] [address] [place] [address] Platelet morphology finding [Identifier] in BloodOrdered By: Ming Childress on 04-02-2023 Platelet morphology finding Nom (Bld) Normal Normal [facility] Platelets [#/volume] in Bloo d by Automated countOrdered By: Ming Childress on 04-02-2023 Platelets (Bld) [#/Vol] 492 10*3/uL High 150-450 [facility] Comment on above: Performed By: #### U HCG, ADDONUAPLUS #### [facility] [address] Poikilocytosis [Presence] in Blood by Light microscopyOrdered By: Ming Childress on 04-02-2023 Poikilocytosis LM Ql (Bld) Slight [facility] Polychromasia [Presence] in Blood by Light microscopyOrdered By: Ming Childress on 04-02-2023 Polychromasia LM Ql (Bld) Moderate [facility] Potassium [Moles/volume] in Serum or PlasmaOrdered By: Ming Childress on 04-02-2023 Potassium [Moles/Vol] 3.7 mmol/L Normal 3.5-5.1 [facility] Comment on above: Performed By: #### U HCG, ADDONUAPLUS #### [address] Protein Auto test strip (U) [Mass/Vol]Ordered By: Ming Childress on 04-02-2023 Protein (U) [Mass/Vol] Negative Negative [facility] RBC morphologyOrdered By: Carmen Childress on 04-02-2023 RBC morphology finding Nom (Bld) N/A [facility] Serum or plasma anion gap de terminationOrdered By: Ming Childress on 04-02-2023 Anion gap [Moles/Vol] 14.2 mmol/L Normal 6.0-15.0 [facility] Comment on above: Performed By: #### U HCG, ADDONUAPLUS #### [place] [address] [place] Smudge cell detectionOrdered By: Ming Childress on 04-02-2023 Smudge cells LM Ql (Bld) Slight [facility] Sodium [Moles/volume] in Ser um or PlasmaOrdered By: Ming Childress on 04-02-2023 Sodium [Moles/Vol] 137 mmol/L Normal 136-145 [facility] Comment on above: Performed By: #### U HCG, ADDONUAPLUS #### [facility] [address] [place] [address] Specific gravity Auto test s trip (U) [Rel density]Ordered By: Ming Childress on 04-02-2023 Specific gravity (U) [Rel density] 1.018 1.001-1.030 [facility] Squamous epithelial cells de tection in urine sediment by light microscopyOrdered By: Ming Childress on 04-02-2023 Epithelial cells.squamous LM Ql (Urine sed) 3-4 [HPF] 0-2 [facility] Toxic leukocyte vacuolation detectionOrdered By: Ming Childress on 04-02-2023 Leukocyte toxic vacuoles LM Ql (Bld) Slight [facility] Urea nitrogen [Mass/volume] in Serum or PlasmaOrdered By: Ming Childress on 04-02-2023 Urea nitrogen [Mass/Vol] 9 mg/dL Normal 7-25 [facility] Comment on above: Performed By: #### U HCG, ADDONUAPLUS #### [facility] [address] [place] [address] Urine bacteria detection by automated methodOrdered By: Ming Childress on 04-02-2023 Bacteria Auto Ql (U) None seen None Seen [facility] Urine clarity by refractomet ry automatedOrdered By: Ming Childress on 04-02-2023 Clarity Refractometry automated (U) Clear Clear [facility] Urine glucose measurement by automated test strip (mass/volume)Ordered By: Ming Childress on 04-02-2023 Glucose Auto test strip (U) [Mass/Vol] Normal mg/dL Normal [facility] Urine hemoglobin detection b y automated test stripOrdered By: Ming Childress on 04-02-2023 Hemoglobin Auto test strip Ql (U) 3+ Negative [facility] Urine leukocyte esterase det ection by automated test stripOrdered By: Ming Childress on 04-02-2023 Leukocyte esterase Auto test strip Ql (U) 1+ Negative [facility] Urine pH measurement by auto mated test stripOrdered By: Ming Childress on 04-02-2023 pH (U) 6.0 [pH] Normal 5.0-9.0 [facility] Comment on above: Order Comment: Name Collection Type:: Clean-Voided Midstream Performed By: #### U HCG, ADDONUAPLUS #### [address] Urobilinogen Auto test strip (U) [Mass/Vol]Ordered By: Ming Childress on 04-02-2023 Urobilinogen (U) [Mass/Vol] Normal mg/dL Normal [facility] Alanine aminotransferase [En zymatic activity/volume] in Serum or PlasmaOrdered By: Ming Childress on 03-29-2023 ALT [Catalytic activity/Vol] 14 U/L Normal 7-52 [facility] Comment on above: Performed By: #### B MP, LIPASE, HEPATIC #### [facility] [address] [place] [address] Albumin [Mass/volume] in Ser um or Plasma by Bromocresol green (BCG) dye binding methoOrdered By: Ming Childress on 03-29-2023 Albumin BCG dye [Mass/Vol] 4.0 g/dL 3.5-5.7 [facility] Alkaline phosphatase [Enzyma tic activity/volume] in Serum or PlasmaOrdered By: Ming Childress on 03-29-2023 ALP [Catalytic activity/Vol] 61 U/L Normal 34-104 [facility] Comment on above: Performed By: #### B MP, LIPASE, HEPATIC #### [facility] [address] [place] [address] Aspartate aminotransferase [ Enzymatic activity/volume] in Serum or PlasmaOrdered By: Ming Childress on 03-29-2023 AST [Catalytic activity/Vol] 19 U/L Normal 13-39 [facility] Comment on above: Performed By: #### B MP, LIPASE, HEPATIC #### [facility] [address] [place] [address] Automated basophil %Ordered By: Ming Childress on 03-29-2023 Basophils/100 WBC (Bld) 1.3 % Normal . [facility] Comment on above: Performed By: #### U HCG, ADDONUAPLUS #### [address] Automated basophil countOrde red By: Ming Childress on 03-29-2023 Basophils (Bld) [#/Vol] 0.1 10*3/uL Normal 0.0-0.2 [facility] Comment on above: Result Comment: PERF ORMED BY: [place] [address] PATHOLOGIST [employer]PER[employer] DEVELOPER FARNAZ ZULETA M.D. Performed By: #### U HCG, ADDONUAPLUS #### [address] Automated blood monocyte cou ntOrdered By: Ming Childress on 03-29-2023 Monocytes (Bld) [#/Vol] 0.6 10*3/uL Normal 0.0-0.8 [facility] Comment on above: Performed By: #### U HCG, ADDONUAPLUS #### [address] Automated eosinophil %Ordere d By: Ming Childress on 03-29-2023 Eosinophils/100 WBC (Bld) 1.8 % Normal . [facility] Comment on above: Performed By: #### U HCG, ADDONUAPLUS #### [address] Automated eosinophil countOr dered By: Ming Childress on 03-29-2023 Eosinophils (Bld) [#/Vol] 0.1 10*3/uL Normal 0.0-0.45 [facility] Comment on above: Performed By: #### U HCG, ADDONUAPLUS #### [address] Automated monocyte %Ordered By: Ming Childress on 03-29-2023 Monocytes/100 WBC (Bld) 7.3 % Normal . [facility] Comment on above: Performed By: #### U HCG, ADDONUAPLUS #### [address] Automated neutrophil %Ordere d By: Ming Childress on 03-29-2023 Neutrophils/100 WBC (Bld) 46.8 % Normal . [facility] Comment on above: Performed By: #### U HCG, ADDONUAPLUS #### [address] Automated urine color determ inationOrdered By: Ming Childress on 03-29-2023 Color (U) Yellow Normal Yellow [facility] Comment on above: Order Comment: Name Collection Type:: Clean-Voided Midstream Performed By: #### H CGQNT #### [address] Basic Metabolic Panelon 03-13 Creatinine Clr Calc Pharmacy 134.47 Normal [facility] Comment on above: Performed By: #### B MP, LIPASE, HEPATIC #### [address] GFR/1.73 sq M.predicted MDRD (S/P/Bld) [Vol rate/Area] mL/min/{1.73_m2} Normal [facility] Comment on above: Performed By: #### B MP, LIPASE, HEPATIC #### [address] Bilirubin Test strip Ql (U)O rdered By: Ming Childress on 03-29-2023 Bilirubin Ql (U) Negative Negative [facility] Bilirubin.direct [Mass/volum e] in Serum or PlasmaOrdered By: Ming Childress on 03-29-2023 Bilirubin.direct [Mass/Vol] 0.10 mg/dL 0.03-0.18 [facility] Bilirubin.total [Mass/volume ] in Serum or PlasmaOrdered By: Ming Childress on 10-17-2023 Bilirubin [Mass/Vol] 0.3 mg/dL Normal 0.3-1.0 [facility] Comment on above: Performed By: #### B MP, LIPASE, HEPATIC #### [facility] [address] [place] [id number] [facility] CT abdomen pelvis w conon CT abdomen pelvis w con [facility] [place] [address] [place] [address] CT Scan Report Signed Patient: Antonia Noyola MR#: [id number] : 1985 Acct:[id number] Age/Sex: 38 / F ADM Date: 03/29/23 Loc: 3T Room: [address] [place] [address] Type: ADM IN Attending Dr: Christi Aquino [...] Alesha Tejada M.D.03/29/2023 7:14 AM Dictation Location: [place] [address] Transcribed By: AMBER 03/29/23713 Dictated By: Alesha Tejada MD 03/29/23709 Signed By: 03/29/23713 Normal [facility] Calcium [Mass/volume] in Ser um or PlasmaOrdered By: Mingsil Childress on 03-29-2023 Calcium [Mass/Vol] 8.9 mg/dL Normal 8.6-10.3 [facility] Comment on above: Performed By: #### B MP, LIPASE, HEPATIC #### [address] Carbon dioxide, total [Moles /volume] in Serum or PlasmaOrdered By: Ming Childress on 03-29-2023 CO2 [Moles/Vol] 22.2 mmol/L Normal 21.0-31.0 [facility] Comment on above: Performed By: #### B MP, LIPASE, HEPATIC #### [address] Chloride [Moles/volume] in S binu or PlasmaOrdered By: Ming Childress on 03-29-2023 Chloride [Moles/Vol] 107 mmol/L Normal 98-107 [facility] Comment on above: Performed By: #### B MP, LIPASE, HEPATIC #### [address] Complete Blood Count Auto Di ffon 03-29-2023 Mean Corpuscular HGB Conc 32.0 g/dL Normal 32.0-35.0 [facility] Comment on above: Performed By: #### U HCG, ADDONUAPLUS #### [address] NRBC% 0.1 /100{WBC} Normal 0-0.5 [facility] Comment on above: Performed By: #### U HCG, ADDONUAPLUS #### [address] Creatinine [Mass/volume] in Serum or PlasmaOrdered By: Ming Arangoarthy on 03-29-2023 Creatinine [Mass/Vol] 0.63 mg/dL Normal 0.60-1.20 [facility] Comment on above: Performed By: #### B MP, LIPASE, HEPATIC #### [address] Erythrocyte distribution wid th [Ratio] by Automated countOrdered By: Ming Arangoarthy on 03-29-2023 Erythrocyte distribution width (RBC) [Ratio] 15.2 % Normal 11.9-15.3 [facility] Comment on above: Performed By: #### U HCG, ADDONUAPLUS #### [address] Erythrocytes [#/volume] in B lood by Automated countOrdered By: Ming Childress on 03-29-2023 RBC (Bld) [#/Vol] 4.34 10*6/uL Normal 3.60-5.00 [facility] Comment on above: Performed By: #### U HCG, ADDONUAPLUS #### [address] Glucose [Mass/volume] in Ser um or PlasmaOrdered By: Ming Childress on 03-29-2023 Glucose [Mass/Vol] 90 mg/dL Normal 70-100 [facility] Comment on above: ADA recommended refe rence rangeRandom Glucose Reference Range is dependent on time and content of last meal. Glucose of more than 200 mg/dL in a nonstressed, ambulatory subject supports the diagnosis of Diabetes Mellitus. Result Comment: [place] Glucose Reference Range is dependent on time and content of last meal. Glucose of more than 200 mg/dL in a nonstressed, ambulatory subject supports the diagnosis of Diabetes Mellitus. ADA recommended reference range Performed By: #### B MP, LIPASE, HEPATIC #### [place] [address] [place] HCG ( test) IA.rapi d Ql (U)Ordered By: Ming Childress on 03-29-2023 HCG ( test) Ql (U) Negative [facility] HCG,Urineon 03-29-2023 Beta HCG ( test) Ql (U) Negative Normal [facility] Comment on above: Order Comment: Name Collection Type:: Clean-Voided Midstream Result Comment: PERF ORMED BY: [place] [address] PATHOLOGIST HYPERION DEVELOPER FARNAZ ZULETA M.D. Performed By: #### H CGQNT #### [address] Hematocrit [Volume Fraction] of Blood by Automated countOrdered By: Ming Arangoarthy on 03-29-2023 Hematocrit (Bld) [Volume fraction] 32.6 % Low 34.0-46.4 [facility] Comment on above: Performed By: #### U HCG, ADDONUAPLUS #### [address] Hemoglobin [Mass/volume] in BloodOrdered By: Ming Arangoarthy on 03-29-2023 Hemoglobin (Bld) [Mass/Vol] 10.4 g/dL Low 11.8-15.4 [facility] Comment on above: Performed By: #### U HCG, ADDONUAPLUS #### [address] Hepatic Panelon 03-29-2023 Albumin [Mass/Vol] 4.0 g/dL Normal 3.5-5.7 [facility] Comment on above: Performed By: #### B MP, LIPASE, HEPATIC #### [place] [address] [place] Bilirubin,Indirect 0.2 mg/dL Normal [facility] Comment on above: Performed By: #### B MP, LIPASE, HEPATIC #### [address] Bilirubin.indirect [Mass/Vol] 0.10 mg/dL Normal 0.03-0.18 [facility] Comment on above: Performed By: #### B MP, LIPASE, HEPATIC #### [address] Ketones Auto test strip (U) [Mass/Vol]Ordered By: Ming Childress on 03-29-2023 Ketones (U) [Mass/Vol] Negative Negative [facility] Lactate [Moles/volume] in Se rum or PlasmaOrdered By: Megan Muniz on 03-29-2023 Lactate [Moles/Vol] 0.8 mmol/L Normal 0.5-2.2 [facility] Comment on above: Result Comment: PERF ORMED BY: [place] [address] PATHOLOGIST HYPERION DEVELOPER FARNAZ ZULETA M.D. Performed By: #### H CGQNT #### [address] Leukocytes [#/volume] correc flo for nucleated erythrocytes in Blood by Automated counOrdered By: Ming Childress on 03-29-2023 WBC corrected for nucl RBC Auto (Bld) [#/Vol] 7.5 10*3/uL 3.8-11.6 [facility] Leukocytes [#/volume] in Blo od by Automated countOrdered By: Ming Childress on 03-29-2023 WBC (Bld) [#/Vol] 7.5 10*3/uL Normal 3.8-11.6 [facility] Comment on above: Performed By: #### U HCG, ADDONUAPLUS #### [facility] [facility] [address] [place] [address] Lipase [Enzymatic activity/v olume] in Serum or PlasmaOrdered By: Ming Childress on 03-29-2023 Lipase [Catalytic activity/Vol] 30.0 U/L Normal 11.0-82.0 [facility] Comment on above: Result Comment: PERF ORMED BY: [place] [address] PATHOLOGIST HYPERION DEVELOPER FARNAZ ZULETA M.D. Performed By: #### B MP, LIPASE, HEPATIC #### [place] [id number] [place] Lymphocytes [#/volume] in Bl ood by Automated countOrdered By: Ming Childress on 03-29-2023 Lymphocytes (Bld) [#/Vol] 3.2 10*3/uL Normal 1.00-4.8 [facility] Comment on above: Performed By: #### U HCG, ADDONUAPLUS #### [facility] [address] [place] [address] Lymphocytes/100 leukocytes i n Blood by Automated countOrdered By: Ming Childress on 03-29-2023 Lymphocytes/100 WBC (Bld) 42.8 % Normal . [facility] Comment on above: Performed By: #### U HCG, ADDONUAPLUS #### [address] MCH [Entitic mass] by Automa flo countOrdered By: Ming Childress on 03-29-2023 MCH (RBC) [Entitic mass] 24.1 pg Low 24.7-34.3 [facility] Comment on above: Performed By: #### U HCG, ADDONUAPLUS #### [address] MCHC Auto (RBC) [Mass/Vol]Or dered By: Ming Childress on 03-29-2023 MCHC (RBC) [Mass/Vol] 32.0 g/dL 32.0-35.0 [facility] MCV [Entitic volume] by Auto mated countOrdered By: Ming Childress on 03-29-2023 MCV (RBC) [Entitic vol] 75.2 fL Low 80-100 [facility] Comment on above: Performed By: #### U HCG, ADDONUAPLUS #### [facility] [address] [place] [address] [place] Neutrophils [#/volume] in Bl ood by Automated countOrdered By: Ming Childress on 03-29-2023 Neutrophils (Bld) [#/Vol] 3.5 10*3/uL Normal 1.8-7.7 [facility] Comment on above: Performed By: #### U HCG, ADDONUAPLUS #### [address] Nitrite Test strip Ql (U)Ord ered By: Ming Childress on 03-29-2023 Nitrite Ql (U) Negative Negative [facility] No Panel InformationOrdered By: Ming Childress on 03-29-2023 Estimated GFR (CKD-EPI) > 60.0 mL/Min [facility] Creatinine Clearance (Chem 134.47 [facility] Nucleated erythrocytes [Pres ence] in Blood by Automated countOrdered By: Mign Childress on 03-29-2023 Nucleated RBC Auto Ql (Bld) 0.1 /100{WBC} 0-0.5 [facility] Platelet mean volume [Entiti c volume] in Blood by Automated countOrdered By: Ming Childress on 03-29-2023 Platelet mean volume (Bld) [Entitic vol] 8.0 fL Normal 6.3-10.7 [facility] Comment on above: Performed By: #### U HCG, ADDONUAPLUS #### [address] Platelets [#/volume] in Bloo d by Automated countOrdered By: Ming Childress on 03-29-2023 Platelets (Bld) [#/Vol] 396 10*3/uL Normal 150-450 [facility] Comment on above: Performed By: #### U HCG, ADDONUAPLUS #### [facility] [address] [place] [address] Potassium [Moles/volume] in Serum or PlasmaOrdered By: Ming Childress on 03-29-2023 Potassium [Moles/Vol] 3.6 mmol/L Normal 3.5-5.1 [facility] Comment on above: Performed By: #### B MP, LIPASE, HEPATIC #### [address] Protein Auto test strip (U) [Mass/Vol]Ordered By: Ming Childress on 03-29-2023 Protein (U) [Mass/Vol] Negative Negative [facility] Protein [Mass/volume] in Ser um or PlasmaOrdered By: Ming Childress on 03-29-2023 Protein [Mass/Vol] 6.8 g/dL Normal 6.4-8.9 [facility] Comment on above: Performed By: #### B MP, LIPASE, HEPATIC #### [address] Serum globulin measurement b y calculation (mass/volume)Ordered By: Ming Childress on 03-29-2023 Globulin (S) [Mass/Vol] 2.8 g/dL Normal F [facility] Comment on above: Performed By: #### B MP, LIPASE, HEPATIC #### [address] Serum or plasma albumin/glob ulin mass ratioOrdered By: Ming Childress on 03-29-2023 Albumin/Globulin [Mass ratio] 1.4 {ratio} Normal [facility] Comment on above: Performed By: #### B MP, LIPASE, HEPATIC #### [address] Serum or plasma anion gap de terminationOrdered By: Ming Childress on 03-29-2023 Anion gap [Moles/Vol] 12.4 mmol/L Normal 6.0-15.0 [facility] Comment on above: Performed By: #### B MP, LIPASE, HEPATIC #### [address] Serum or plasma non-glucuron idated bilirubin measurement (mass/volume)Ordered By: Ming Childress on 03-29-2023 Bilirubin.indirect [Mass/Vol] 0.2 mg/dL [facility] Sodium [Moles/volume] in Ser um or PlasmaOrdered By: Ming Childress on 03-29-2023 Sodium [Moles/Vol] 138 mmol/L Normal 136-145 [facility] Comment on above: Performed By: #### B MP, LIPASE, HEPATIC #### [address] Specific gravity Auto test s trip (U) [Rel density]Ordered By: Ming Childress on 03-29-2023 Specific gravity (U) [Rel density] 1.003 1.001-1.030 [facility] US transvaginalon 03-29-2023 US transvaginal [facility] [place] [address] [place], [place] [id number] Ultrasound Report Signed Patient: Antonia Noyola MR#: [id number] : 1985 Acct:[id number] Age/Sex: 38 / F ADM Date: 03/29/23 Loc: Room: [address] [place] [address] Type: ADM IN Attending Dr: Christi Aquino MD Ordering Provider: Ming Childress DO Date of Service: 03/29/23 US/US transvaginal: r/o L ovarian torsion ([id number]) US/US pelvic complete: PAIN Copies to: DO [...] Davi Figueroa M.D.03/29/2023 8:20 AM Dictation Location: [place] [address] Tech: Brooke Hodge Transcribed By: AMBER 03/29/23819 Dictated By: Davi Figueroa DO 03/29/23815 Signed By: 03/29/23819 Normal [facility] Urea nitrogen [Mass/volume] in Serum or PlasmaOrdered By: Ming Child[place] on 03-29-2023 Urea nitrogen [Mass/Vol] 6 mg/dL Low 7-25 [facility] Comment on above: Performed By: #### B MP, LIPASE, HEPATIC #### [facility] [address] [place] [address] [place] Urinalysison 03-29-2023 Appearance (U) Clear Normal Clear [facility] Comment on above: Order Comment: Name Collection Type:: Clean-Voided Midstream Performed By: #### H CGQNT #### [address] [address] [place] Bilirubin,Urine Negative Normal Negative [facility] Comment on above: Order Comment: Name Collection Type:: Clean-Voided Midstream Performed By: #### H CGQNT #### [facility] [address] [place] [address] [place] Glucose Ql (U) Normal Normal Normal [facility] Comment on above: Order Comment: Name Collection Type:: Clean-Voided Midstream Performed By: #### H CGQNT #### [place] [phone] [facility] Ketones Ql (U) Negative Normal Negative [facility] Comment on above: Order Comment: Name Collection Type:: Clean-Voided Midstream Performed By: #### H CGQNT #### [place] [phone] [place] Leukocyte esterase Test strip Ql (U) Negative Normal Negative [facility] Comment on above: Order Comment: Name Collection Type:: Clean-Voided Midstream Performed By: #### H CGQNT #### [place] [address] [place] Nitrite,Urine Negative Normal Negative [facility] Comment on above: Order Comment: Name Collection Type:: Clean-Voided Midstream Performed By: #### H CGQNT #### [address] [address] [place] Occult Blood,Urine Negative Normal Negative [facility] Comment on above: Order Comment: Name Collection Type:: Clean-Voided Midstream Performed By: #### H CGQNT #### [facility] [address] [place] [address] [place] Protein,Urine Negative Normal Negative [facility] Comment on above: Order Comment: Name Collection Type:: Clean-Voided Midstream Performed By: #### H CGQNT #### [facility] [address] Specificy [place],Urine 1.003 Normal 1.001-1.030 [facility] Comment on above: Order Comment: Name Collection Type:: Clean-Voided Midstream Performed By: #### H CGQNT #### [facility] [address] Urobilinogen,Urine Normal Normal Normal [facility] Comment on above: Order Comment: Name Collection Type:: Clean-Voided Midstream Performed By: #### H CGQNT #### [facility] [address] Urine clarity by refractomet ry automatedOrdered By: Ming Child[place] on 03-29-2023 Clarity Refractometry automated (U) Clear Clear [facility] Urine glucose measurement by automated test strip (mass/volume)Ordered By: Ming Child[place] on 03-29-2023 Glucose Auto test strip (U) [Mass/Vol] Normal mg/dL Normal [facility] Urine hemoglobin detection b y automated test stripOrdered By: Ming Childress on 03-29-2023 Hemoglobin Auto test strip Ql (U) Negative Negative [facility] Urine leukocyte esterase det ection by automated test stripOrdered By: Ming Childress on 03-29-2023 Leukocyte esterase Auto test strip Ql (U) Negative Negative [facility] Urine pH measurement by auto mated test stripOrdered By: Ming Childress on 03-29-2023 pH (U) 7.5 [pH] Normal 5.0-9.0 [facility] Comment on above: Order Comment: Name Collection Type:: Clean-Voided Midstream Performed By: #### H CGQNT #### [address] Urobilinogen Auto test strip (U) [Mass/Vol]Ordered By: Ming [place] on 03-29-2023 Urobilinogen (U) [Mass/Vol] Normal mg/dL Normal [facility] Automated urine color determ inationOrdered By: Elier [place] on 02-06-2023 Color (U) Yellow Normal Yellow [facility] Comment on above: Order Comment: Name Collection Type:: Clean-Voided Midstream Performed By: #### U [facility] #### [facility] [address] [place] [address] [facility] Bilirubin Test strip Ql (U)O rdered By: Elier [place] on 02-06-2023 Bilirubin Ql (U) Negative Negative [facility] CT abdomen pelvis w conon CT abdomen pelvis w con [facility] [place] [address] [place], [place] [id number] CT Scan Report Signed Patient: Antonia Noyola MR#: [id number] 757 : 1985 Acct:[id number] Age/Sex: 38 / F ADM Date: 02/05/23 Loc: ER Room: Type: [facility] ER Attending Dr: Copies to: Elier [...] Betancur Jr., D.OEbenezer02/06/2023 11:23 AM Dictation Location: [place] [address] Transcribed By: [facility] 02/06/23 1123 Dictated By: Dennis Beatncur Jr, DO 02/06/23 1109 Signed By: 02/06/23 1123 Normal [facility] HCG ( test) [place].rapi d Ql (U)Ordered By: Elier [place] on 02-06-2023 HCG ( test) Ql (U) Negative [facility] HCG,Urineon 02-06-2023 Beta HCG ( test) Ql (U) Negative Normal [facility] Comment on above: Order Comment: Name Collection Type:: Clean-Voided Midstream Result Comment: PERF ORMED BY: [place] [address] PATHOLOGIST HYPERION DEVELOPER FARNAZ ZULETA M.D. Performed By: #### U A, [facility] #### [address] Ketones Auto test strip (U) [Mass/Vol]Ordered By: Elier [place] on 02-06-2023 Ketones (U) [Mass/Vol] Negative Negative [facility] Nitrite Test strip Ql (U)Ord ered By: Elier [place] on 02-06-2023 Nitrite Ql (U) Negative Negative [facility] Protein Auto test strip (U) [Mass/Vol]Ordered By: Elier [place] on 02-06-2023 Protein (U) [Mass/Vol] Negative Negative [facility] Specific gravity Auto test s trip (U) [Rel density]Ordered By: Elier [place] on 02-06-2023 Specific gravity (U) [Rel density] 1.007 1.001-1.030 [facility] US pelvic completeon 023 US pelvic complete [facility] [place] [address] [place], [place] [address] Ultrasound Report Signed Patient: Antonia Noyola MR#: [id number] 757 : 1985 Acct:[id number] Age/Sex: 38 / F ADM Date: 02/05/23 Loc: ER Room: Type: [facility] ER Attending Dr: Ordering Provider: Elier [place] DO Date of Service: 02/06/23 US/US pelvic complete: adnexa pain ([id number]) US/US transvaginal: . Copies to: Elier [place] [...] Betancur Jr., D.O.02/06/2023 11:25 AM Dictation Location: [place] [address] Tech: Jada Webb Transcribed By: [facility] 02/06/23 112 Dictated By: Dennis Betancur Jr, DO 02/06/23 112 Signed By: 02/06/23 1125 Normal [facility] Urinalysison 02-06-2023 Appearance (U) Clear Normal Clear [facility] Comment on above: Order Comment: Name Collection Type:: Clean-Voided Midstream Performed By: #### U A, UHCG #### [facility] [address] [place] [phone] [facility] Bilirubin,Urine Negative Normal Negative [facility] Comment on above: Order Comment: Name Collection Type:: Clean-Voided Midstream Performed By: #### U A, UHCG #### [facility] [address] [place] [phone] [place] Glucose Ql (U) Normal Normal Normal [facility] Comment on above: Order Comment: Name Collection Type:: Clean-Voided Midstream Performed By: #### U A, UHCG #### [place] [address] [place] Ketones Ql (U) Negative Normal Negative [facility] Comment on above: Order Comment: Name Collection Type:: Clean-Voided Midstream Performed By: #### U A, UHCG #### [address] Leukocyte esterase Test strip Ql (U) Negative Normal Negative [facility] Comment on above: Order Comment: Name Collection Type:: Clean-Voided Midstream Performed By: #### U A, UHCG #### [place] [address] [place] Nitrite,Urine Negative Normal Negative [facility] Comment on above: Order Comment: Name Collection Type:: Clean-Voided Midstream Performed By: #### U A, UHCG #### [place] [address] [place] Occult Blood,Urine Negative Normal Negative [facility] Comment on above: Order Comment: Name Collection Type:: Clean-Voided Midstream Performed By: #### U A, UHCG #### [place] [address] [place] Protein,Urine Negative Normal Negative [facility] Comment on above: Order Comment: Name Collection Type:: Clean-Voided Midstream Performed By: #### U A, UHCG #### [place] [address] [place] Specificy [place],Urine 1.007 Normal 1.001-1.030 [facility] Comment on above: Order Comment: Name Collection Type:: Clean-Voided Midstream Performed By: #### U A, UHCG #### [place] [address] [place] Urobilinogen,Urine Normal Normal Normal [facility] Comment on above: Order Comment: Name Collection Type:: Clean-Voided Midstream Performed By: #### U A, UHCG #### [place] [address] [place] Urine clarity by refractomet ry automatedOrdered By: Elier [place] on 02-06-2023 Clarity Refractometry automated (U) Clear Clear [facility] Urine glucose measurement by automated test strip (mass/volume)Ordered By: Elier [place] on 02-06-2023 Glucose Auto test strip (U) [Mass/Vol] Normal mg/dL Normal [facility] Urine hemoglobin detection b y automated test stripOrdered By: Elier [place] on 02-06-2023 Hemoglobin Auto test strip Ql (U) Negative Negative [facility] Urine leukocyte esterase det ection by automated test stripOrdered By: Elier [place] on 02-06-2023 Leukocyte esterase Auto test strip Ql (U) Negative Negative [facility] Urine pH measurement by auto mated test stripOrdered By: Elier [place] on 02-06-2023 pH (U) 7.0 [pH] Normal 5.0-9.0 [facility] Comment on above: Order Comment: Name Collection Type:: Clean-Voided Midstream Performed By: #### U A, UHCG #### [facility] [address] Urobilinogen Auto test strip (U) [Mass/Vol]Ordered By: Elier [place] on 02-06-2023 Urobilinogen (U) [Mass/Vol] Normal mg/dL Normal [facility] Alanine aminotransferase [En zymatic activity/volume] in Serum or PlasmaOrdered By: Elier [place] on 02-05-2023 ALT [Catalytic activity/Vol] 13 U/L Normal 7-52 [facility] Comment on above: Performed By: #### H CGQNT #### [facility] [address] [place] [address] [place] Albumin [Mass/volume] in Ser um or Plasma by Bromocresol green (BCG) dye binding methoOrdered By: Elier [place] on 02-05-2023 Albumin BCG dye [Mass/Vol] 4.2 g/dL 3.5-5.7 [facility] Alkaline phosphatase [Enzyma tic activity/volume] in Serum or PlasmaOrdered By: Elier [place] on 02-05-2023 ALP [Catalytic activity/Vol] 52 U/L Normal 34-104 [facility] Comment on above: Performed By: #### H CGQNT #### [address] Aspartate aminotransferase [ Enzymatic activity/volume] in Serum or PlasmaOrdered By: Elier [place] on 02-05-2023 AST [Catalytic activity/Vol] 12 U/L Low 13-39 [facility] Comment on above: Performed By: #### H CGQNT #### [address] Automated basophil %Ordered By: Elier [place] on 02-05-2023 Basophils/100 WBC (Bld) 1.4 % Normal . [facility] Comment on above: Performed By: #### H EPATIC, LIPASE, BMP, CBC #### [address] Automated basophil countOrde red By: Elier [place] on 02-05-2023 Basophils (Bld) [#/Vol] 0.1 10*3/uL Normal 0.0-0.2 [facility] Comment on above: Result Comment: PERF ORMED BY: [place] [address] PATHOLOGIST HYPERION DEVELOPER FARNAZ ZULETA M.D. Performed By: #### H EPATIC, LIPASE, BMP, CBC #### [address] Automated blood monocyte cou ntOrdered By: Elier [place] on 02-05-2023 Monocytes (Bld) [#/Vol] 0.7 10*3/uL Normal 0.0-0.8 [facility] Comment on above: Performed By: #### H EPATIC, LIPASE, BMP, CBC #### [address] Automated eosinophil %Ordere d By: Elier [place] on 02-05-2023 Eosinophils/100 WBC (Bld) 1.5 % Normal . [facility] Comment on above: Performed By: #### H EPATIC, LIPASE, BMP, CBC #### [address] Automated eosinophil countOr dered By: Elier [place] on 02-05-2023 Eosinophils (Bld) [#/Vol] 0.1 10*3/uL Normal 0.0-0.45 [facility] Comment on above: Performed By: #### H EPATIC, LIPASE, BMP, CBC #### [address] Automated monocyte %Ordered By: Elier [place] on 02-05-2023 Monocytes/100 WBC (Bld) 8.4 % Normal . [facility] Comment on above: Performed By: #### H EPATIC, LIPASE, BMP, CBC #### [address] Automated neutrophil %Ordere d By: Elier [place] on 02-05-2023 Neutrophils/100 WBC (Bld) 44.4 % Normal . [facility] Comment on above: Performed By: #### H EPATIC, LIPASE, BMP, CBC #### [address] Basic Metabolic Panelon 01-12 Creatinine Clr Calc Pharmacy 115.62 Normal [facility] Comment on above: Performed By: #### H CGQNT #### [address] GFR/1.73 sq M.predicted MDRD (S/P/Bld) [Vol rate/Area] mL/min/{1.73_m2} Normal [facility] Comment on above: Performed By: #### H CGQNT #### [address] Bilirubin.direct [Mass/volum e] in Serum or PlasmaOrdered By: Elier [place] on 02-05-2023 Bilirubin.direct [Mass/Vol] 0.10 mg/dL 0.03-0.18 [facility] Bilirubin.total [Mass/volume ] in Serum or PlasmaOrdered By: Elier [place] on 02-05-2023 Bilirubin [Mass/Vol] 0.3 mg/dL Normal 0.3-1.0 [facility] Comment on above: Performed By: #### H CGQNT #### [facility] [address] [place] [address] [place] Calcium [Mass/volume] in Ser um or PlasmaOrdered By: Elier [place] on 02-05-2023 Calcium [Mass/Vol] 9.2 mg/dL Normal 8.6-10.3 [facility] Comment on above: Performed By: #### H CGQNT #### [facility] [address] Carbon dioxide, total [Moles /volume] in Serum or PlasmaOrdered By: Elier [place] on 02-05-2023 CO2 [Moles/Vol] 21.5 mmol/L Normal 21.0-31.0 [facility] Comment on above: Performed By: #### H CGQNT #### [facility] [address] [place] [address] [place] Chloride [Moles/volume] in S binu or PlasmaOrdered By: Elier [place] on 02-05-2023 Chloride [Moles/Vol] 107 mmol/L Normal 98-107 [facility] Comment on above: Performed By: #### H CGQNT #### [facility] [address] [place] [address] Choriogonadotropin.beta subu nit [Units/volume] in Serum or PlasmaOrdered By: Elier [place] on 02-05-2023 HCG.beta subunit Qn m[IU]/mL [facility] Comment on above: Approximate Approxim ate hCG Gestational Age Range (mIU/ml) (weeks)0.2-1 5-50 1-2 50-500 2-3 100-5,000 3-4 500-10,000 4-5 1,000-50,000 5-6 10,000-100,000 6-8 15,000-200,000 8-12 10,000-100,000 HCG.beta subunit Qn Negative [facility] Complete Blood Count Auto Di ffon 02-05-2023 Mean Corpuscular HGB Conc 31.8 g/dL Low 32.0-35.0 [facility] Comment on above: Performed By: #### H EPATIC, LIPASE, BMP, CBC #### [facility] [address] [place] [address] [place] Monocytes/100 WBC (Bld) 17.33 % Normal 0.00-20.00 T ryder [facility] Comment on above: Performed By: #### H EPATIC, LIPASE, BMP, CBC #### [facility] [address] NRBC% 0.1 /100{WBC} Normal 0-0.5 [facility] Comment on above: Performed By: #### H EPATIC, LIPASE, BMP, CBC #### [address] Creatinine [Mass/volume] in Serum or PlasmaOrdered By: Elier [place] on 02-05-2023 Creatinine [Mass/Vol] 0.71 mg/dL Normal 0.60-1.20 [facility] Comment on above: Performed By: #### H CGQNT #### [address] Erythrocyte distribution wid th [Ratio] by Automated countOrdered By: Elier [place] on 02-05-2023 Erythrocyte distribution width (RBC) [Ratio] 15.9 % High 11.9-15.3 [facility] Comment on above: Performed By: #### H EPATIC, LIPASE, BMP, CBC #### [address] Erythrocytes [#/volume] in B lood by Automated countOrdered By: Elier [place] on 02-05-2023 RBC (Bld) [#/Vol] 4.78 10*6/uL Normal 3.60-5.00 [facility] Comment on above: Performed By: #### H EPATIC, LIPASE, BMP, CBC #### [address] Glucose [Mass/volume] in Ser um or PlasmaOrdered By: Elier [place] on 02-05-2023 Glucose [Mass/Vol] 99 mg/dL Normal 70-100 [facility] Comment on above: ADA recommended refe rence rangeRandom Glucose Reference Range is dependent on time and content of last meal. Glucose of more than 200 mg/dL in a nonstressed, ambulatory subject supports the diagnosis of Diabetes Mellitus. Result Comment: [place] om Glucose Reference Range is dependent on time and content of last meal. Glucose of more than 200 mg/dL in a nonstressed, ambulatory subject supports the diagnosis of Diabetes Mellitus. ADA recommended reference range Performed By: #### H CGQNT #### [address] HCG,Qualitative Serumon 01-12 HCG,Qualitative Serum Negative Normal [facility] Comment on above: Result Comment: PERF ORMED BY: [place] [address] PATHOLOGIST HYPERION DEVELOPER FARNAZ ZULETA M.D. Performed By: #### U HCG, ADDONUAPLUS #### [address] HCG,Quantitativeon HCG,Quantitative < 0.60 Normal [facility] Comment on above: Result Comment: Appr oximate Approximate hCG Gestational Age Range (mIU/ml) (weeks) 0.2-1 5-50 1-2 50-500 2-3 100-5,000 3-4 500-10,000 4-5 1,000-50,000 5-6 10,000-100,000 6-8 15,000-200,000 8-12 10,000-100,000 PERFORMED BY: [place] [address] PATHOLOGIST HYPERION DEVELOPER FARNAZ ZULETA M.D. Performed By: #### H CGQNT #### [address] Hematocrit [Volume Fraction] of Blood by Automated countOrdered By: Elier [place] on 02-05-2023 Hematocrit (Bld) [Volume fraction] 37.3 % Normal 34.0-46.4 [facility] Comment on above: Performed By: #### H EPATIC, LIPASE, BMP, CBC #### [address] [place] [address] [place] Hemoglobin [Mass/volume] in BloodOrdered By: Elier [place] on 02-05-2023 Hemoglobin (Bld) [Mass/Vol] 11.8 g/dL Normal 11.8-15.4 [facility] Comment on above: Performed By: #### H EPATIC, LIPASE, BMP, CBC #### [facility] [address] Hepatic Panelon 02-05-2023 Albumin [Mass/Vol] 4.2 g/dL Normal 3.5-5.7 [facility] Comment on above: Performed By: #### H CGQNT #### [address] Bilirubin,Indirect 0.2 mg/dL Normal [facility] Comment on above: Performed By: #### H CGQNT #### [address] Bilirubin.indirect [Mass/Vol] 0.10 mg/dL Normal 0.03-0.18 [facility] Comment on above: Performed By: #### H CGQNT #### [address] Leukocytes [#/volume] correc flo for nucleated erythrocytes in Blood by Automated counOrdered By: Elier Jackson on 02-05-2023 WBC corrected for nucl RBC Auto (Bld) [#/Vol] 8.1 10*3/uL 3.8-11.6 [facility] Leukocytes [#/volume] in Blo od by Automated countOrdered By: Elier Jackson on 02-05-2023 WBC (Bld) [#/Vol] 8.1 10*3/uL Normal 3.8-11.6 [facility] Comment on above: Performed By: #### H EPATIC, LIPASE, BMP, CBC #### [facility] [address] [place] [address] Lipase [Enzymatic activity/v olume] in Serum or PlasmaOrdered By: Elier Jackson on 02-05-2023 Lipase [Catalytic activity/Vol] 40.0 U/L Normal 11.0-82.0 [facility] Comment on above: Result Comment: PERF ORMED BY: [place] [address] PATHOLOGIST HYPERION DEVELOPER FARNAZ ZULETA M.D. Performed By: #### H CGQNT #### [address] Lymphocytes [#/volume] in Bl ood by Automated countOrdered By: Elier Jackson on 02-05-2023 Lymphocytes (Bld) [#/Vol] 3.6 10*3/uL Normal 1.00-4.8 [facility] Comment on above: Performed By: #### H EPATIC, LIPASE, BMP, CBC #### [address] Lymphocytes/100 leukocytes i n Blood by Automated countOrdered By: Elier Jackson on 02-05-2023 Lymphocytes/100 WBC (Bld) 44.3 % Normal . [facility] Comment on above: Performed By: #### H EPATIC, LIPASE, BMP, CBC #### [address] MCH [Entitic mass] by Automa flo countOrdered By: Elier Jackson on 02-05-2023 MCH (RBC) [Entitic mass] 24.8 pg Normal 24.7-34.3 [facility] Comment on above: Performed By: #### H EPATIC, LIPASE, BMP, CBC #### [facility] [address] [place] [address] MCHC Auto (RBC) [Mass/Vol]Or dered By: Elier Jackson on 02-05-2023 MCHC (RBC) [Mass/Vol] 31.8 g/dL 32.0-35.0 [facility] MCV [Entitic volume] by Auto mated countOrdered By: Elier Jackson on 02-05-2023 MCV (RBC) [Entitic vol] 78.1 fL Low 80-100 [facility] Comment on above: Performed By: #### H EPATIC, LIPASE, BMP, CBC #### [facility] [address] [place] [address] Monocyte distribution width [Entitic volume] in Blood by AutomatedOrdered By: Elierjaqui Jackson on 02-05-2023 Monocyte distribution width Auto (Bld) [Entitic vol] 17.33 % 0.00-20.00 [facility] Neutrophils [#/volume] in Bl ood by Automated countOrdered By: Elier Jackson on 02-05-2023 Neutrophils (Bld) [#/Vol] 3.6 10*3/uL Normal 1.8-7.7 [facility] Comment on above: Performed By: #### H EPATIC, LIPASE, BMP, CBC #### [facility] [address] [place] [address] No Panel InformationOrdered By: Elier Jackson on 02-05-2023 Estimated GFR (CKD-EPI) > 60.0 mL/Min [facility] Creatinine Clearance (Chem 115.62 [facility] Nucleated erythrocytes [Pres ence] in Blood by Automated countOrdered By: Elier Jakcson on 02-05-2023 Nucleated RBC Auto Ql (Bld) 0.1 /100{WBC} 0-0.5 [facility] Platelet mean volume [Entiti c volume] in Blood by Automated countOrdered By: Elier Jackson on 02-05-2023 Platelet mean volume (Bld) [Entitic vol] 8.0 fL Normal 6.3-10.7 [facility] Comment on above: Performed By: #### H EPATIC, LIPASE, BMP, CBC #### [facility] [address] [place] [address] Platelets [#/volume] in Bloo d by Automated countOrdered By: Elier Jackson on 02-05-2023 Platelets (Bld) [#/Vol] 398 10*3/uL Normal 150-450 [facility] Comment on above: Performed By: #### H EPATIC, LIPASE, BMP, CBC #### [facility] [address] [place] [address] Potassium [Moles/volume] in Serum or PlasmaOrdered By: Elier Jackson on 02-05-2023 Potassium [Moles/Vol] 3.4 mmol/L Low 3.5-5.1 [facility] Comment on above: Performed By: #### H CGQNT #### [address] Protein [Mass/volume] in Ser um or PlasmaOrdered By: Elier Jackson on 02-05-2023 Protein [Mass/Vol] 7.2 g/dL Normal 6.4-8.9 [facility] Comment on above: Performed By: #### H CGQNT #### [address] Serum globulin measurement b y calculation (mass/volume)Ordered By: Elier Jackson on 02-05-2023 Globulin (S) [Mass/Vol] 3.0 g/dL Normal [facility] Comment on above: Performed By: #### H CGQNT #### [address] Serum or plasma albumin/glob ulin mass ratioOrdered By: Elier Jackson on 02-05-2023 Albumin/Globulin [Mass ratio] 1.4 {ratio} Normal [facility] Comment on above: Performed By: #### H CGQNT #### [address] Serum or plasma anion gap de terminationOrdered By: Elier Jackson on 02-05-2023 Anion gap [Moles/Vol] 11.9 mmol/L Normal 6.0-15.0 [facility] Comment on above: Performed By: #### H CGQNT #### [address] Serum or plasma non-glucuron idated bilirubin measurement (mass/volume)Ordered By: Elier Jackson on 02-05-2023 Bilirubin.indirect [Mass/Vol] 0.2 mg/dL [facility] Sodium [Moles/volume] in Ser um or PlasmaOrdered By: Elier Jackson on 02-05-2023 Sodium [Moles/Vol] 137 mmol/L Normal 136-145 [facility] Comment on above: Performed By: #### H CGQNT #### [facility] [address] [place] [address] [place] Urea nitrogen [Mass/volume] in Serum or PlasmaOrdered By: Elier Jackson on 02-05-2023 Urea nitrogen [Mass/Vol] 6 mg/dL Low 7-25 [facility] Comment on above: Performed By: #### H CGQNT #### [facility] [address] [place] [id number] [place] GENITAL CULTUREon 08-01-2022 Genital Culture, Routine Final report Abnormal [facility] Comment on above: Result Comment: Spec imen stability note: A swab transport (ie., ESwab, Amies agar gel) received by the lab more than 24 hours after collection may result in reduced recovery of Neisseria gonorrhoeae (GC). (This is informational only and may not apply to this specimen.) Performed By: #### C XGENIT #### [facility] [address] [place] [address] Dr. Rod Ramirez Result 1 Comment Abnormal [facility] Comment on above: Result Comment: [...] (CLSI) Performed By: #### C XGENIT #### [facility] [address] [place] [address] Dr. Rod Ramirez Result 2 Comment Normal [facility] Comment on above: Result Comment: Rout ine genital rashid. Light growth Performed By: #### C XGENIT #### [facility] [address] [place] [address] Dr. Rod Ramirez CBC AUTO DIFFon 07-28-2022 BASO # 0.0 103/ul Normal 0.0-0.1 [facility] Comment on above: Performed By: #### C BC #### [facility] [address] [place] [address] Dr. Rod Ramirez Basophils/100 WBC (Bld) 0.4 % Normal 0.2-2.0 [facility] Comment on above: Performed By: #### C BC #### [facility] [address] [place] [address] Dr. Rod Ramirez EO # 0.1 103/ul Normal 0.0-0.7 [facility] Comment on above: Performed By: #### C BC #### [facility] [address] [place] [address] Dr. Rod Ramirez Eosinophils/100 WBC (Bld) 1.5 % Normal 0.9-7.0 [facility] Comment on above: Performed By: #### C BC #### [facility] [address] [place] [address] Dr. Rod Ramirez Erythrocyte distribution width (RBC) [Ratio] 12.9 % Normal 11.0-15.0 [facility] Comment on above: Performed By: #### C BC #### [facility] [address] [place] [address] Dr. Rod Ramirez Hematocrit (Bld) [Volume fraction] 40.9 % Normal 36.0-48.0 [facility] Comment on above: Performed By: #### C BC #### [facility] [address] [place] [address] Dr. Rod Ramirez Hemoglobin (Bld) [Mass/Vol] 13.7 g/dL Normal 12.0-16.0 [facility] Comment on above: Performed By: #### C BC #### [facility] [address] [place] [address] Dr. Rod Ramirez IG # 0.02 10e3/ul Normal 0.00-0.03 [facility] Comment on above: Performed By: #### C BC #### [facility] [address] [place] [address] Dr. Rod Ramirez IG % 0.3 % Normal 0.0-0.5 [facility] Comment on above: Performed By: #### C BC #### [facility] [address] [place] [address] Dr. Rod Ramirez LYMPH # 1.6 103/ul Normal 1.2-3.8 [facility] Comment on above: Performed By: #### C BC #### [facility] [address] [place] [address] Dr. Rod Ramirez Lymphocytes/100 WBC (Bld) 23.6 % Normal 20.5-60.0 [facility] Comment on above: Performed By: #### C BC #### [facility] [address] [place] [address] Dr. Rod Ramirez MANUAL DIFF REQ NO Normal [facility] Comment on above: Performed By: #### C BC #### [facility] [address] [place] [address] Dr. Rod Ramirez MCH (RBC) [Entitic mass] 27.7 pg Normal 26.7-34.0 [facility] Comment on above: Performed By: #### C BC #### [facility] [address] [place] [address] Dr. Rod Ramirez MCHC (RBC) [Mass/Vol] 33.5 g/dL Normal 29.9-35.2 [facility] Comment on above: Performed By: #### C BC #### [facility] [address] [place] [address] Dr. Rod Ramirez MCV (RBC) [Entitic vol] 82.6 fL Normal 81.0-99.0 [facility] Comment on above: Performed By: #### C BC #### [facility] [address] [place] [address] Dr. Rod Ramirez MONO # 0.4 103/ul Normal 0.3-0.8 [facility] Comment on above: Performed By: #### C BC #### [facility] [address] [place] [address] Dr. Rod Ramirez Monocytes/100 WBC (Bld) 6.4 % Normal 1.7-12.0 [facility] Comment on above: Performed By: #### C BC #### [facility] [address] [place] [address] Dr. Rod Ramirez NEUT # 4.6 103/ul Normal 1.4-6.5 [facility] Comment on above: Performed By: #### C BC #### [facility] [address] [place] [address] Dr. Rod Ramirez Neutrophils/100 WBC (Bld) 67.8 % Normal 43.0-75.0 [facility] Comment on above: Performed By: #### C BC #### [facility] [address] [place] [address] Dr. Rod Ramirez Platelet mean volume (Bld) [Entitic vol] 9.4 fL Critically low 9.5-13.5 [facility] Comment on above: Performed By: #### C BC #### [facility] [address] [place] [address] Dr. Rod Ramirez PLT 439 103/ul Normal 150-450 [facility] Comment on above: Performed By: #### C BC #### [facility] [address] [place] [address] Dr. Rod Ramirez RBC 4.95 106/ul Normal 4.20-5.40 [facility] Comment on above: Performed By: #### C BC #### [facility] [address] [place] [address] Dr. Rod Ramirez WBC 6.7 103/ul Normal 4.0-11.0 [facility] Comment on above: Performed By: #### C BC #### [facility] [address] [place] [address] Dr. Rod Ramirez PREG HCG QUALon 07-28-2022 , QUAL Negative Normal NEGATIVE [facility] Comment on above: Performed By: #### P REG #### [facility] [address] [place] [address] Dr. Rod Ramirez PROF CHEM 8 (BAS METB)on Anion gap [Moles/Vol] 15.5 mmol/L Normal [facility] Comment on above: Performed By: #### B MP #### [facility] [address] [place] [address] Dr. Rod Ramirez Calcium [Mass/Vol] 9.0 mg/dL Normal 8.5-10.1 [facility] Comment on above: Performed By: #### B MP #### [facility] [address] [place] [address] [address] Rod Ramirez Chloride [Moles/Vol] 103 mmol/L Normal 98-107 [facility] Comment on above: Performed By: #### B MP #### [facility] [address] [place] [address] [address] Rod Ramirez CO2 [Moles/Vol] 23.9 mmol/L Normal 21.0-32.0 [facility] Comment on above: Performed By: #### B MP #### [facility] [address] [place] [address] [address] Rod Ramirez Creatinine [Mass/Vol] 0.79 mg/dL Normal 0.55-1.02 [facility] Comment on above: Performed By: #### B MP #### [facility] [address] [place] [address] [address] Rod Ramirez EGFR-AF DJIBOUTIAN >60 Normal >=60 [facility] Comment on above: Performed By: #### B MP #### [facility] [address] [place] [address] [address] Rod Ramirez EGFR-NON AF DJIBOUTIAN >60 Normal >=60 [facility] Comment on above: Performed By: #### B MP #### [facility] [address] [place] [address] [address] Rod Ramirez Glucose [Mass/Vol] 108 mg/dL Critically high 74-106 [facility] Comment on above: Performed By: #### B MP #### [facility] [address] [place] [address] [address] Rod Ramirez Potassium [Moles/Vol] 3.4 mmol/L Critically low 3.5-5.1 [facility] Comment on above: Performed By: #### B MP #### [facility] [address] [place] [address] [address] Rod Ramirez Sodium [Moles/Vol] 139 mmol/L Normal 136-145 [facility] Comment on above: Performed By: #### B MP #### [facility] [address] [place], [place] [address] Dr. Rod Ramirez Urea nitrogen [Mass/Vol] 7.0 mg/dL Normal 7.0-18.0 [facility] Comment on above: Performed By: #### B MP #### [facility] [address] [id number] Rod Ramirez Urea nitrogen/Creatinine [Mass ratio] 8.9 mg/mg Normal [facility] Comment on above: Performed By: #### B MP #### [facility] [address] [place], [place] [address] Dr. Rod Ramirez US PELVIS TRANSVAGon 023 [...] AUBREY BURKS Date: 2022-07-28 07:46 Normal [facility] WET PREPon 07-28-2022 CLUE CELLS NONE SEEN Normal NONE SEEN The [facility] Comment on above: Performed By: #### W P #### [facility] [address] [place], [place] [address] Dr. Rod Ramirez FUNGAL ELEMENTS NONE SEEN Normal NONE SEEN The [facility] Comment on above: Performed By: #### W P #### [facility] [address] [place] [address] [address] Rod Ramirez RBC -WET PREP RARE Abnormal NONE SEEN [facility] Comment on above: Performed By: #### W P #### [facility] [address] [place] [address] [address] Rod Ramirez TRICHOMONAS NONE SEEN Normal NONE SEEN [facility] Comment on above: Performed By: #### W P #### [facility] [address] [place] [address] [address] Rod Ramirez WBC- WET PREP RARE Abnormal NONE SEEN [facility] Comment on above: Performed By: #### W P #### [facility] [address] [place] [address] [address] Rod Ramirez WET PREP BACTERIA NONE SEEN Normal NONE SEEN [facility] Comment on above: Performed By: #### W P #### [facility] [address] [place] [address] Dr. Rod Morales 04-30-2022 CNPN Telephone (HEMASA) ANTONIA NOYOLA ([id number]) 1985 F Date Time Provider Department 04/30/22 [...] Fully Assessed Reason for Visit: Lab Orders [2528] Primary Visit Diagnosis:Iron deficiency anemia due to chronic blood loss [D50.0] Order(s):COMP METABOLIC PANEL [SQCMP] Order #: [id number] FUTURE Prescriptions as of 05/03/2022 - ALPRAZolam [...] Status:Closed by MADYSON NI on 05/03/22 Normal [facility] Anisocytosis LM Ql (Bld)Orde red By: Yevgeniy Cabrera on 04-28-2022 Anisocytosis Ql (Bld) Marked [facility] Automated erythrocytes count in urine sediment (number/area)Ordered By: Yevgeniy Cabrera on 04-28-2022 RBC Auto (Urine sed) [#/Area] None seen [HPF] 0-4 [facility] Automated leukocytes count i n urine sediment (number/area)Ordered By: Yevgeniy Cabrera on 04-28-2022 WBC Auto (Urine sed) [#/Area] 3-4 [HPF] 0-4 [facility] Basophils Auto (Bld) [#/Vol] Ordered By: Yevgeniy Cabrera on 04-28-2022 Basophils (Bld) [#/Vol] 0.1 10*3/uL 0.0-0.2 [facility] Basophils/100 WBC Auto (Bld) Ordered By: Yevgeniy Cabrera on 04-28-2022 Basophils/100 WBC (Bld) 1.0 % . [facility] Bilirubin Test strip Ql (U)O rdered By: Yevgeniy Cabrera on 04-28-2022 Bilirubin Ql (U) Negative Negative [facility] Body fluid albumin measureme nt (mass/volume)Ordered By: Yevgeniy Cabrera on 04-28-2022 Albumin (Body fld) [Mass/Vol] 3.8 g/dL 3.2-5.5 [facility] Color Auto (U)Ordered By: Th oli Rick on 04-28-2022 Color (U) Yellow Yellow [facility] Creatinine and Glomerular fi ltration rate.predicted panel (S/P/Bld)Ordered By: Yevgeniy Cabrera on 04-28-2022 Creatinine [Mass/Vol] 0.62 mg/dL 0.44-1.03 [facility] Eosinophils Auto (Bld) [#/Vo l]Ordered By: Yevgeniy Cabrera on 04-28-2022 Eosinophils (Bld) [#/Vol] 0.1 10*3/uL 0.0-0.45 [facility] Eosinophils/100 WBC Auto (Bl d)Ordered By: Yevgeniy Cabrera on 04-28-2022 Eosinophils/100 WBC (Bld) 1.0 % . [facility] Erythrocyte distribution wid th Auto (RBC) [Ratio]Ordered By: Yevgeniy Cabrera on 04-28-2022 Erythrocyte distribution width (RBC) [Ratio] 27.1 % 11.9-15.3 [facility] Estimated glomerular filtrat ion rate (GFR) non- AmericanOrdered By: Yevgeniy Cabrera on 04-28-2022 GFR/1.73 sq M.predicted among non-blacks MDRD (S/P/Bld) [Vol rate/Area] > 60 mL/Min [facility] Globulin Calc (S) [Mass/Vol] Ordered By: Yevgeniy Cabrera on 04-28-2022 Globulin (S) [Mass/Vol] 3.1 g/dL F [facility] HCG ( test) IA.rapi d Ql (U)Ordered By: Yevgeniy Cabrera on 04-28-2022 HCG ( test) Ql (U) Negative [facility] Hematocrit Auto (Bld) [Volum e fraction]Ordered By: Yevgeniy Cabrera on 04-28-2022 Hematocrit (Bld) [Volume fraction] 39.4 % 34.0-46.4 [facility] Hemoglobin [Mass/volume] in BloodOrdered By: Yevgeniy Cabrera on 04-28-2022 Hemoglobin (Bld) [Mass/Vol] 12.3 g/dL 11.8-15.4 [facility] Hypochromia LM Ql (Bld)Order ed By: Yevgeniy Cabrera on 04-28-2022 Hypochromia Ql (Bld) Slight [facility] Ketones Auto test strip (U) [Mass/Vol]Ordered By: Yevgeniy Cabrera on 04-28-2022 Ketones (U) [Mass/Vol] Negative Negative Fi [facility] - Hematology and Cell countsOrdered By: Yevgeniy Cabrera on 04-28-2022 Nucleated RBC/100 WBC (Bld) [Ratio] 0.0 % 0-0.5 [facility] - UrinalysisOrder ed By: Yevgeniy Cabrera on 04-28-2022 Hyaline casts LM Ql (Urine sed) None seen [LPF] 0-8 [facility] Leukocytes [#/volume] in Blo od by Automated countOrdered By: Yevgeniy Cabrera on 04-28-2022 WBC (Bld) [#/Vol] 7.9 10*3/uL 4.5-11.0 [facility] Lymphocytes Auto (Bld) [#/Vo l]Ordered By: Yevgeniy Cabrera on 04-28-2022 Lymphocytes (Bld) [#/Vol] 2.3 10*3/uL 1.00-4.8 [facility] Lymphocytes/100 WBC Auto (Bl d)Ordered By: Yevgeniy Cabrera on 04-28-2022 Lymphocytes/100 WBC (Bld) 28.9 % . [facility] MCH Auto (RBC) [Entitic mass ]Ordered By: Yevgeniy Cabrera on 04-28-2022 MCH (RBC) [Entitic mass] 23.3 pg 24.7-34.3 [facility] MCHC Auto (RBC) [Mass/Vol]Or dered By: Yevgeniy Cabrera on 04-28-2022 MCHC (RBC) [Mass/Vol] 31.3 g/dL 32.0-35.0 [facility] MCV Auto (RBC) [Entitic vol] Ordered By: Yevgeniy Cabrera on 04-28-2022 MCV (RBC) [Entitic vol] 74.5 fL 80-100 F [facility] Monocytes Auto (Bld) [#/Vol] Ordered By: Yevgeniy Cabrera on 04-28-2022 Monocytes (Bld) [#/Vol] 0.4 10*3/uL 0.0-0.8 [facility] Monocytes/100 WBC Auto (Bld) Ordered By: Yevgeniy Cabrera on 04-28-2022 Monocytes/100 WBC (Bld) 4.5 % . [facility] Neutrophils Auto (Bld) [#/Vo l]Ordered By: Yevgeniy Cabrera on 04-28-2022 Neutrophils (Bld) [#/Vol] 5.1 10*3/uL 1.8-7.7 [facility] Neutrophils/100 WBC Auto (Bl d)Ordered By: Yevgeniy Cabrera on 04-28-2022 Neutrophils/100 WBC (Bld) 64.6 % . [facility] Nitrite Test strip Ql (U)Ord ered By: Yevgeniy Cabrera on 04-28-2022 Nitrite Ql (U) Negative Negative [facility] No Panel InformationOrdered By: Yevgeniy Cabrera on 04-28-2022 Estimated GFR () > 60 mL/Min [facility] Comment on above: GFR estimated refere nce range: According to KDOQI guidelines, <60 ml/min/1.73m2 is sufficient to diagnose a patient with chronic kidney disease. Pharmacy Creatinine Clearance (Chem 132.36 [facility] Slides for Pathologist Review Ordered path review [facility] Ovalocyte detectionOrdered B y: Yevgeniy Cabrera on 04-28-2022 Ovalocytes LM Ql (Bld) Moderate [facility] Platelet adequacy [Presence] in Blood by Light microscopyOrdered By: Yevgeniy Cabrera on 04-28-2022 Platelets LM Ql (Bld) Normal Normal [facility] Platelet mean volume Auto (B ld) [Entitic vol]Ordered By: Yevgeniy Cabrera on 04-28-2022 Platelet mean volume (Bld) [Entitic vol] 7.4 fL 6.3-10.7 [facility] Platelet morphology finding [Identifier] in BloodOrdered By: Yevgeniy Cabrera on 04-28-2022 Platelet morphology finding Nom (Bld) Normal Normal [facility] Platelets Auto (Bld) [#/Vol] Ordered By: Yevgeniy Cabrera on 04-28-2022 Platelets (Bld) [#/Vol] 329 10*3/uL 150-450 [facility] Poikilocytosis [Presence] in Blood by Light microscopyOrdered By: Yevgeniy Cabrera on 04-28-2022 Poikilocytosis LM Ql (Bld) Moderate [facility] Polychromasia [Presence] in Blood by Light microscopyOrdered By: Yevgeniy Cabrera on 04-28-2022 Polychromasia LM Ql (Bld) Slight [facility] Protein Auto test strip (U) [Mass/Vol]Ordered By: Yevgeniy Cabrera on 04-28-2022 Protein (U) [Mass/Vol] Negative Negative Fi [facility] Protein [Mass/volume] in Ser um or PlasmaOrdered By: Yevgeniy Cabrera on 04-28-2022 Protein [Mass/Vol] 6.9 g/dL 6.1-7.9 [facility] RBC Auto (Bld) [#/Vol]Ordere d By: Yevgeniy Cabrera on 04-28-2022 RBC (Bld) [#/Vol] 5.29 10*6/uL 3.60-5.00 [facility] RBC morphologyOrdered By: Marcus Cabrera on 04-28-2022 RBC morphology finding Nom (Bld) N/A [facility] Serum or plasma alanine syed otransferase measurement without P-5'-P (enzymatic activiOrdered By: Yevgeniy Cabrera on 04-28-2022 ALT No additional P-5'-P [Catalytic activity/Vol] 43 U/L 10-60 [facility] Serum or plasma albumin/glob ulin mass ratioOrdered By: Yevgeniy Cabrera on 04-28-2022 Albumin/Globulin [Mass ratio] 1.2 {ratio} [facility] Serum or plasma alkaline zeeshan sphatase measurement (enzymatic activity/volume)Ordered By: Yevgeniy Cabrera on 04-28-2022 ALP [Catalytic activity/Vol] 65 U/L 32-92 [facility] Serum or plasma anion gap de terminationOrdered By: Yevgeniy Cabrera on 04-28-2022 Anion gap [Moles/Vol] 14.6 mmol/L 6.0-15.0 [facility] Serum or plasma aspartate am inotransferase measurement (enzymatic activity/volume)Ordered By: Yevgeniy Cabrera on 04-28-2022 AST [Catalytic activity/Vol] 26 U/L 10-42 [facility] Serum or plasma calcium donaldo urement (mass/volume)Ordered By: Yevgeniy Cabrera on 04-28-2022 Calcium [Mass/Vol] 9.3 mg/dL 8.2-10.2 [facility] Serum or plasma chloride claudia surement (moles/volume)Ordered By: Yevgeniy Cabrera on 04-28-2022 Chloride [Moles/Vol] 105 mmol/L 95-114 [facility] Serum or plasma glucose donaldo urement (mass/volume)Ordered By: Yevgeniy Cabrera on 04-28-2022 Glucose [Mass/Vol] 112 mg/dL 70-100 [facility] Comment on above: ADA recommended refe rence rangeRandom Glucose Reference Range is dependent on time and content of last meal. Glucose of more than 200 mg/dL in a nonstressed, ambulatory subject supports the diagnosis of Diabetes Mellitus. Serum or plasma potassium me asurement (moles/volume)Ordered By: Yevgeniy Cabrera on 04-28-2022 Potassium [Moles/Vol] 3.7 mmol/L 3.5-5.1 [facility] Serum or plasma sodium measu rement (moles/volume)Ordered By: Yevgeniy Cabrera on 04-28-2022 Sodium [Moles/Vol] 137 mmol/L 136-146 [facility] Serum or plasma total biliru bin measurement (mass/volume)Ordered By: Yevgeniy Cabrera on 04-28-2022 Bilirubin [Mass/Vol] 0.5 mg/dL 0.3-1.2 [facility] Serum or plasma total carbon dioxide measurement (moles/volume)Ordered By: Yevgeniy Cabrera on 04-28-2022 CO2 [Moles/Vol] 21.1 mmol/L 22.0-30.0 [facility] Serum or plasma urea nitroge n measurement (mass/volume)Ordered By: Yevgeniy Cabrera on 04-28-2022 Urea nitrogen [Mass/Vol] 5 mg/dL 9-23 [facility] Specific gravity Auto test s trip (U) [Rel density]Ordered By: Yevgeniy Cabrera on 04-28-2022 Specific gravity (U) [Rel density] 1.005 1.001-1.030 [facility] Squamous epithelial cells de tection in urine sediment by light microscopyOrdered By: Yevgeniy Cabrera on 04-28-2022 Epithelial cells.squamous LM Ql (Urine sed) 0-1 [HPF] 0-2 [facility] Teardrop cell detectionOrder ed By: Yevgeniy Cabrera on 04-28-2022 Dacrocytes LM Ql (Bld) Slight [facility] Urine bacteria detection by automated methodOrdered By: Yevgeniy Cabrera on 04-28-2022 Bacteria Auto Ql (U) None seen None Seen [facility] Urine clarity by refractomet ry automatedOrdered By: Yevgeniy Cabrera on 04-28-2022 Clarity Refractometry automated (U) Cloudy Clear [facility] Urine glucose measurement by automated test strip (mass/volume)Ordered By: Yevgeniy Cabrera on 04-28-2022 Glucose Auto test strip (U) [Mass/Vol] Normal mg/dL Normal [facility] Urine hemoglobin detection b y automated test stripOrdered By: Yevgeniy Cabrera on 04-28-2022 Hemoglobin Auto test strip Ql (U) Negative Negative [facility] Urine leukocyte esterase det ection by automated test stripOrdered By: Yevgeniy Cabrera on 04-28-2022 Leukocyte esterase Auto test strip Ql (U) 1+ Negative [facility] Urobilinogen Auto test strip (U) [Mass/Vol]Ordered By: Yevgeniy Cabrera on 04-28-2022 Urobilinogen (U) [Mass/Vol] Normal mg/dL Normal [facility] pH Auto test strip (U)Ordere d By: Yevgeniy Cabrera on 04-28-2022 pH (U) 6.5 [pH] 5.0-9.0 [facility] ALLIED HEALTHon 04-09-2022 ALLIED HEALTH HNO ID: [id number] Author: Stephenie Suh, 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 Service: ? [...] 2022 TIME: 2:21 PM PAGER/CONTACT #: Angela [facility] Andrew 03-19-2022 CNPN Telephone (NCCAP) ANTONIA NOYOLA ([id number]) 1985 F Date Time Provider Department 03/19/22 [...] Date Reviewed: 03/10/2022 Reviewed by: Madyson Ni APRN.[facility]ASS [facility]ELLER - Fully Assessed Reason for Visit: No [...] by CORBIN MANE on [facility]19/22 [facility] ANTON[facility] NOYOLA ([id number]) 1985 F Date Time Provider Department 03/19/22 FINANCIAL NAVIGATOR JOHNY ZOËChi During your visit today, we recorded the following information about you: Sparkle Short [facility] 03/19/2022 4:48 PM Signed 1st report of treatment-Non oncology regimen (Venofer) No FA available for this treatment at this time. Allergies As of Date: 03/19/2022 Noted Allergy Reaction MORPHINE 06/20/2018 14 - Other: See Comments Comments: Spasms Date Reviewed: 03/10/2022 Reviewed by: Madyson Ni [facility]N.[facility] - Fully Assessed Reason for [...] of iron [K90.9] 10/27/2020 [facility] Status:[facility] Andrew 03-15-2022 PIOTRN Telephone (HEMASA) ANTONIA NOYOLA ([id number]) 1985 F Date Time Provider Department 03/15/22 [...] Date Reviewed: 03/10/2022 Reviewed by: Madyson Ni APRN.[facility] - Fully Assessed Reason for Visit: Social [...] Encounter Status:Closed by SHARON GALAVIZ on 03/15/22 [facility] CBC W Auto Differential pane l (Bld)on 03-10-2022 Basophils (Bld) [#/Vol] 0.05 10*3/uL Normal <0.11 [facility] Comment on above: Order Comment: Speci men Type: BLOOD SPECIMEN Ordering Facility: [facility] Address: [address] Performed By: #### 5 7021-8 #### [facility] CLIA [id number] [address] [place] [address] Basophils/100 WBC (Bld) 0.8 % Normal [facility] Comment on above: Order Comment: Speci men Type: BLOOD SPECIMEN Ordering Facility: [facility] Address: [address] [place] [address] Performed By: #### 5 7021-8 #### [facility] CLIA [id number] [address] [place] [address] Differential cell count method Nom (Bld) Auto Normal [facility] Comment on above: Order Comment: Speci men Type: BLOOD SPECIMEN Ordering Facility: [facility] Address: [address] [place], [place] [address] Performed By: #### 5 7021-8 #### [facility] CLIA [id number] [address] [place] [address] Eosinophils (Bld) [#/Vol] 0.15 10*3/uL Normal <0.46 [facility] Comment on above: Order Comment: Speci men Type: BLOOD SPECIMEN Ordering Facility: [facility] Address: [address] Performed By: #### 5 7021-8 #### [facility] CLIA [id number] [address] [place] [address] Eosinophils/100 WBC (Bld) 2.3 % Normal [facility] Comment on above: Order Comment: Speci men Type: BLOOD SPECIMEN Ordering Facility: [facility] Address: [address] [place], [place] [address] Performed By: #### 5 7021-8 #### [facility] CLIA [id number] [address] [place] [address] Erythrocyte distribution width (RBC) [Ratio] 17.4 % High 11.5-15.0 [facility] Comment on above: Order Comment: Speci men Type: BLOOD SPECIMEN Ordering Facility: [facility] Address: [address] [place] [address] Performed By: #### 5 7021-8 #### [facility] CLIA [id number] [address] [place] [address] Hematocrit (Bld) [Volume fraction] 29.4 % Low 36.0-46.0 [facility] Comment on above: Order Comment: Speci men Type: BLOOD SPECIMEN Ordering Facility: [facility] Address: [address] [place] [address] Performed By: #### 5 7021-8 #### [facility] CLIA [id number] [address] [place] [address]642 Hemoglobin (Bld) [Mass/Vol] 8.5 g/dL Low 11.5-15.5 [facility] Comment on above: Order Comment: Speci men Type: BLOOD SPECIMEN Ordering Facility: [facility] Address: [address] [place] [address] Performed By: #### 5 7021-8 #### [facility] CLIA [id number] [address] [place] [address] IMMATURE GRAN % 0.3 % Normal [facility] Comment on above: Order Comment: Speci men Type: BLOOD SPECIMEN Ordering Facility: [facility] Address: [address] [place] [address] Performed By: #### 5 7021-8 #### [facility] IA [id number] [address] [place] [address] IMMATURE GRAN ABS <0.03 Normal <0.10 [facility] Comment on above: Order Comment: Speci men Type: BLOOD SPECIMEN Ordering Facility: [facility] Address: [address] [place] [address] Performed By: #### 5 7021-8 #### [facility] CLIA [id number] [address] [place] [address] Lymphocytes (Bld) [#/Vol] 3.62 10*3/uL Normal 1.00-4.00 [facility] Comment on above: Order Comment: Speci men Type: BLOOD SPECIMEN Ordering Facility: [facility] Address: [address] [place] [address] Performed By: #### 5 7021-8 #### [facility] CLIA [id number] [address] [place] [address]113 Lymphocytes/100 WBC (Bld) 54.8 % Normal [facility] Comment on above: Order Comment: Speci men Type: BLOOD SPECIMEN Ordering Facility: [facility] Address: [address] [place] [address] Performed By: #### 5 7021-8 #### [facility] CLIA [id number] [address] [place] [address]1949 MCH (RBC) [Entitic mass] 20.3 pg Low 26.0-34.0 [facility] Comment on above: Order Comment: Speci men Type: BLOOD SPECIMEN Ordering Facility: [facility] Address: [address] [place] [address] Performed By: #### 5 7021-8 #### [facility] CLIA [id number] [address] [place] [address] 53788 MCHC (RBC) [Mass/Vol] 28.9 g/dL Low 30.5-36.0 [facility] Comment on above: Order Comment: Speci men Type: BLOOD SPECIMEN Ordering Facility: [facility] Address: [address] [place], [place] [address] Performed By: #### 5 7021-8 #### [facility] CLIA [id number] [address] [place] [address] 52552 MCV (RBC) [Entitic vol] 70.3 fL Low 80.0-100.0 [facility] Comment on above: Order Comment: Speci men Type: BLOOD SPECIMEN Ordering Facility: [facility] Address: [address] [place], [place] [address] Performed By: #### 5 7021-8 #### [facility] CLIA [id number] [address] [place] [address] 18783 Monocytes (Bld) [#/Vol] 0.38 10*3/uL Normal <0.87 [facility] Comment on above: Order Comment: Speci men Type: BLOOD SPECIMEN Ordering Facility: [facility] Address: [address] [place] [address] Performed By: #### 5 7021-8 #### [facility] CLIA [id number] [address] [place] [address] 51190 Monocytes/100 WBC (Bld) 5.7 % Normal [facility] Comment on above: Order Comment: Speci men Type: BLOOD SPECIMEN Ordering Facility: [facility] Address: [address] [place], [place] [address] Performed By: #### 5 7021-8 #### [facility] CLIA [id number] [address] [place] [address] 86434 Neutrophils (Bld) [#/Vol] 2.39 10*3/uL Normal 1.45-7.50 [facility] Comment on above: Order Comment: Speci men Type: BLOOD SPECIMEN Ordering Facility: [facility] Address: [address] [place], [place] [address] Performed By: #### 5 7021-8 #### [facility] CLIA [id number] [address] [place] [address] 35635 Neutrophils/100 WBC (Bld) 36.1 % Normal [facility] Comment on above: Order Comment: Speci men Type: BLOOD SPECIMEN Ordering Facility: [facility] Address: [address] [place], [place] [address] Performed By: #### 5 7021-8 #### [facility] CLIA [id number] [address] [place] [address] Nucleated RBC (Bld) [#/Vol] 10*3/uL Normal <0.01 [facility] Comment on above: Order Comment: Speci men Type: BLOOD SPECIMEN Ordering Facility: [facility] Address: [address] [place] [address] Performed By: #### 5 7021-8 #### [facility] CLIA [id number] [address] [place] [address]21 Nucleated RBC/100 WBC (Bld) [Ratio] 0.0 /100 WBC Normal [facility] Comment on above: Order Comment: Speci men Type: BLOOD SPECIMEN Ordering Facility: [facility] Address: [address] [place] [address] Performed By: #### 5 7021-8 #### [facility] CLIA [id number] [address] [place] [address]405 Platelet mean volume (Bld) [Entitic vol] 8.8 fL Low 9.0-12.7 [facility] Comment on above: Order Comment: Speci men Type: BLOOD SPECIMEN Ordering Facility: [facility] Address: [address] [place] [address] Performed By: #### 5 7021-8 #### [facility] CLIA [id number] [address] [place] [address] 47654 Platelets (Bld) [#/Vol] 419 10*3/uL High 150-400 [facility] Comment on above: Order Comment: Speci men Type: BLOOD SPECIMEN Ordering Facility: [facility] Address: [address] [place] [address] Performed By: #### 5 7021-8 #### [facility] CLIA [id number] [address] [place] [address] 99500 RBC (Bld) [#/Vol] 4.18 10*6/uL Normal 3.90-5.20 [facility] Comment on above: Order Comment: Speci men Type: BLOOD SPECIMEN Ordering Facility: [facility] Address: [address] [place] [address] Performed By: #### 5 7021-8 #### [facility] CLIA [id number] [address] [place] [address]9399 WBC (Bld) [#/Vol] 6.61 10*3/uL Normal 3.70-11.00 [facility] Comment on above: Order Comment: Speci men Type: BLOOD SPECIMEN Ordering Facility: [facility] Address: [address] [place] [address] Performed By: #### 5 7021-8 #### [facility] CLIA [id number] [address] [place] [address] CNOVSPon 03-10-2022 CNOVSP Visit (SP) Office (HEMASA) ANTONIA NOYOLA ([id number]) 1985 F Date Time Provider Department 03/10/22 2:00 PM MADYSON NI During your visit today, we recorded the following information about you: Temperature Pulse Respiration Blood pressure 97.9 degrees 95/minute 16/minute 130/75 Weight Height 83.4 kg 1.651 m Madyson Ni APRN.CNP 03/10/2022 2:25 PM Signed NAME: Antonia Noyola NO.: [id number] DATE OF SERVICE: March 10, 2022 (Elements [...] 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 She works 7 PM to [...] iron deficiency. Recent laboratories [place] [facility] October 04, 2020 show hemoglobin of 11.6 [...] to chronic (more content not included)... Normal [facility] Comprehensive metabolic 2000 panelon 03-10-2022 Albumin [Mass/Vol] 4.0 g/dL Normal 3.9-4.9 [facility] Comment on above: Order Comment: Speci men Type: BLOOD SPECIMEN Ordering Facility: [facility] Address: [address] [place] [address] Performed By: #### 2 4323-8 #### [facility] CLIA [id number] [address] [place] [address] ALP [Catalytic activity/Vol] 55 U/L Normal 34-123 [facility] Comment on above: Order Comment: Speci men Type: BLOOD SPECIMEN Ordering Facility: [facility] Address: [address] [place] [address] Performed By: #### 2 4323-8 #### [facility] CLIA [id number] [address] [place] [address] ALT [Catalytic activity/Vol] 12 U/L Normal 7-38 [facility] Comment on above: Order Comment: Speci men Type: BLOOD SPECIMEN Ordering Facility: [facility] Address: [address] [place] [address] Performed By: #### 2 4323-8 #### [facility] CLIA [id number] [address] [place] [address] Anion gap [Moles/Vol] 9 mmol/L Normal 9-18 [facility] Comment on above: Order Comment: Speci men Type: BLOOD SPECIMEN Ordering Facility: [facility] Address: [address] [place] [address] Performed By: #### 2 4323-8 #### [facility] CLIA [id number] [address] [place] [address] AST [Catalytic activity/Vol] 14 U/L Normal 13-35 [facility] Comment on above: Order Comment: Speci men Type: BLOOD SPECIMEN Ordering Facility: [facility] Address: [address] [place] [address] Performed By: #### 2 4323-8 #### [facility] CLIA [id number] [address] [place] [address]46 Bilirubin [Mass/Vol] 0.3 mg/dL Normal 0.2-1.3 [facility] Comment on above: Order Comment: Speci men Type: BLOOD SPECIMEN Ordering Facility: [facility] Address: [address] [place] [id number] Performed By: #### 2 4323-8 #### [facility] CLIA [id number] [address] [place] [address] Calcium [Mass/Vol] 8.8 mg/dL Normal 8.5-10.2 [facility] Comment on above: Order Comment: Speci men Type: BLOOD SPECIMEN Ordering Facility: [facility] Address: [address] [place] [address] Performed By: #### 2 4323-8 #### [facility] CLIA [id number] [address] [place] [address] Chloride [Moles/Vol] 105 mmol/L Normal 97-105 [facility] Comment on above: Order Comment: Speci men Type: BLOOD SPECIMEN Ordering Facility: [facility] Address: [address] [place] [address] Performed By: #### 2 4323-8 #### [facility] CLIA [id number] [address] [place] [address] CO2 [Moles/Vol] 24 mmol/L Normal 22-30 [facility] Comment on above: Order Comment: Speci men Type: BLOOD SPECIMEN Ordering Facility: [facility] Address: [address] Performed By: #### 2 4323-8 #### [facility] CLIA [id number] [address] [place] [address] Creatinine [Mass/Vol] 0.65 mg/dL Normal 0.58-0.96 [facility] Comment on above: Order Comment: Speci men Type: BLOOD SPECIMEN Ordering Facility: [facility] Address: [address] Performed By: #### 2 4323-8 #### [facility] CLIA [id number] [address] [place] [address] ESTIMATED GLOMERULAR FILTRATION RATE 118 mL/min/1.73m??? Normal >=60 [facility] Comment on above: Order Comment: Roselyn conway Type: BLOOD SPECIMEN Ordering Facility: [facility] Address: [address] [place] [address] Result Comment: Shelley mated Glomerular Filtration Rate [...] GFR. Performed By: #### 2 4323-8 #### [facility] CLIA [id number] [address] [place] [address]44 Glucose [Mass/Vol] 109 mg/dL High 74-99 [facility] Comment on above: Order Comment: Roselyn conway Type: BLOOD SPECIMEN Ordering Facility: [facility] Address: [address] [place] [address] Result Comment: The [place] Diabetes Association (ADA) provides guidance for cutoff [...] Standards of Medical Care in Diabetes 2016, [place] [employer] Association. Diabetes Care. 2016.39(Suppl 1). Performed By: #### 2 4323-8 #### [facility] CLIA [id number] [address] [place] [address] Potassium [Moles/Vol] 3.4 mmol/L Low 3.7-5.1 [facility] Comment on above: Order Comment: Roselyn conway Type: BLOOD SPECIMEN Ordering Facility: [facility] Address: [address] [place] [id number] Performed By: #### 2 4323-8 #### [facility] CLIA [id number] [address] [place] [address] Protein [Mass/Vol] 6.5 g/dL Normal 6.3-8.0 [facility] Comment on above: Order Comment: Speci men Type: BLOOD SPECIMEN Ordering Facility: [facility] Address: [address] [place] [address] Performed By: #### 2 4323-8 #### [facility] CLIA [id number] [address] [place] [address] Sodium [Moles/Vol] 138 mmol/L Normal 136-144 [facility] Comment on above: Order Comment: Speci men Type: BLOOD SPECIMEN Ordering Facility: [facility] Address: [address] [place] [address] Performed By: #### 2 4323-8 #### [facility] CLIA [id number] [address] [place] [address]48 Urea nitrogen [Mass/Vol] 8 mg/dL Normal 7-21 [facility] Comment on above: Order Comment: Speci men Type: BLOOD SPECIMEN Ordering Facility: [facility] Address: [address] [place] [address] Performed By: #### 2 4323-8 #### [facility] CLIA [id number] [address] [place] [address] Ferritin SerPl-mCncon 2021 Ferritin [Mass/Vol] 5.4 ng/mL Low 14.7-205.1 [facility] Comment on above: Order Comment: Speci men Type: BLOOD SPECIMEN Ordering Facility: [facility] Address: [address] [place] [address] Performed By: #### 5 0190-8, 2132-9, 2284-8, 2276-4 #### [facility] CLIA [id number] [address] [place] [address] [place] Folate SerPl-mCncon 03-10-20 Folate [Mass/Vol] 8.7 ng/mL Normal >4.7 [facility] Comment on above: Order Comment: Speci men Type: BLOOD SPECIMEN Ordering Facility: [facility] Address: [address] [place] [address] Performed By: #### 5 0190-8, 2131-9, 2283-8, 6-4 #### [facility] CLIA [id number] [address] [place] [address] [place] Iron and Iron binding capaci ty panelon 03-10-2022 Iron [Mass/Vol] 17 ug/dL Low 41-186 [facility] Comment on above: Order Comment: Speci men Type: BLOOD SPECIMEN Ordering Facility: [facility] Address: [address] [place] [address] Performed By: #### 5 0190-8, 9, 8, 2275-4 #### [facility] CLIA [id number] [address] [place] [address] [place] Iron binding capacity [Mass/Vol] 422 ug/dL High 232-386 [facility] Comment on above: Order Comment: Speci men Type: BLOOD SPECIMEN Ordering Facility: [facility] Address: [address] [place] [address] Performed By: #### 5 0190-8, 9, 8, 2275-4 #### [facility] CLIA [id number] [address] [place] [address] [place] Iron/TIBC [Molar ratio] 4.0 % Low 15.0-57.0 [facility] Comment on above: Order Comment: Speci men Type: BLOOD SPECIMEN Ordering Facility: [facility] Address: [address] [place] [address] Performed By: #### 5 0190-8, 2131-9, 2283-8, 2275-4 #### [facility] CLIA [id number] [address] [place], [place] [address] [place] Vit B12 Barbara-tiffanie 03-10-2 022 Cobalamin (Vitamin B12) [Mass/Vol] 367 pg/mL Normal 232-1245 [facility] Comment on above: Order Comment: Speci men Type: BLOOD SPECIMEN Ordering Facility: [facility] Address: [address] [place] [address] Performed By: #### 5 0190-8, 2132-9, 2284-8, 2276-4 #### [facility] CLIA [id number] [address] [place] [address] OF [place] CNPDeborah 02-18-2022 CNPN Telephone (HEMASA) ANTONIA NOYOLA ([id number]) 1985 F Date Time Provider Department 02/18/22 [...] [D50.0] Order(s):CBC + DIFF [SQCBCDIF] Order #: [id number] FUTURE COMP METABOLIC PANEL [SQCMP] Order #: [id number] FUTURE IRON + TIBC [SQIRON] Order #: [id number] FUTURE FERRITIN BLD [SQFERR] Order #: [id number] FUTURE VITAMIN B12 BLOOD [SQB12] Order #: [id number] FUTURE FOLATE SERUM [SQSERFOL] Order #: [id number] FUTURE Prescriptions as of 02/20/2022 - ALPRAZolam [...] Status:Closed by GINO REID on 02/20/22 Normal [facility] Basophils Auto (Bld) [#/Vol] Ordered By: Jennifer Duran on 02-12-2022 Basophils (Bld) [#/Vol] 0.1 10*3/uL 0.0-0.2 [facility] Basophils/100 WBC Auto (Bld) Ordered By: Jennifer Duran on 02-12-2022 Basophils/100 WBC (Bld) 1.0 % . [facility] Blood anisocytosis detection Ordered By: Jennifer Duran on 02-12-2022 Anisocytosis Ql (Bld) Moderate [facility] Blood hemoglobin measurement (mass/volume)Ordered By: Jennifer Duran on 02-12-2022 Hemoglobin (Bld) [Mass/Vol] 8.5 g/dL 11.8-15.4 [facility] Blood leukocytes automated c ount (number/volume)Ordered By: Jennifer Duran on 02-12-2022 WBC (Bld) [#/Vol] 5.9 10*3/uL 4.5-11.0 [facility] Body fluid albumin measureme nt (mass/volume)Ordered By: Jennifer Duran on 02-12-2022 Albumin (Body fld) [Mass/Vol] 3.7 g/dL 3.2-5.[address] [facility] [address] biopsyOrdered By: Jennifer avila on 02-12-2022 Transferrin [Mass/Vol] 356 mg/dL 180-[facility] Creatinine and Glomerular fi ltration rate.predicted panel (S/P/Bld)Ordered By: Jennifer Duran on 02-12-2022 Creatinine [Mass/Vol] 0.72 mg/dL 0.44-1.03 [facility] Eosinophils Auto (Bld) [#/Vo l]Ordered By: Jennifer Duran on 02-12-2022 Eosinophils (Bld) [#/Vol] 0.1 10*3/uL 0.0-0.45 [facility] Eosinophils/100 WBC Auto (Bl d)Ordered By: Jennifer Duran on 02-12-2022 Eosinophils/100 WBC (Bld) 2.2 % . [facility] Erythrocyte distribution wid th Auto (RBC) [Ratio]Ordered By: Jennifer Duran on 02-12-2022 Erythrocyte distribution width (RBC) [Ratio] 17.3 % 11.9-15.3 [facility] Estimated glomerular filtrat ion rate (GFR) non- AmericanOrdered By: Jennifer Duran on 02-12-2022 GFR/1.73 sq M.predicted among non-blacks MDRD (S/P/Bld) [Vol rate/Area] > 60 mL/Min [facility] Ferritin [Mass/volume] in Se rum or PlasmaOrdered By: Jennifer Duran on 02-12-2022 Ferritin [Mass/Vol] 5.1 ng/mL 11-306.8 [facility] Globulin Calc (S) [Mass/Vol] Ordered By: Jennifer Duran on 02-12-2022 Globulin (S) [Mass/Vol] 2.9 g/dL [facility] Hematocrit Auto (Bld) [Volum e fraction]Ordered By: Jennifer Duran on 02-12-2022 Hematocrit (Bld) [Volume fraction] 27.9 % 34.0-46.4 [facility] Hypochromia detectionOrdered By: Jennifer Duran on 02-12-2022 Hypochromia Ql (Bld) Slight [facility] Iron [Mass/volume] in Serum or PlasmaOrdered By: Jennifer Duran on 02-12-2022 Iron [Mass/Vol] 11 ug/dL 40-150 [facility] Iron binding capacity [Mass/ volume] in Serum or PlasmaOrdered By: Jennifer Duran on 02-12-2022 Iron binding capacity [Mass/Vol] 498 ug/dL 255-450 [facility] Iron saturation [Mass Fracti on] in Serum or PlasmaOrdered By: Jennifer Duran on 02-12-2022 Iron saturation [Mass fraction] 2.0 % 20-50 [facility] - Hematology and Cell countsOrdered By: Jennifer Duran on 02-12-2022 Nucleated RBC/100 WBC (Bld) [Ratio] 0.3 % 0-0.5 [facility] Lymphocytes Auto (Bld) [#/Vo l]Ordered By: Jennifer Duran on 02-12-2022 Lymphocytes (Bld) [#/Vol] 3.0 10*3/uL 1.00-4.8 [facility] Lymphocytes/100 WBC Auto (Bl d)Ordered By: Jennifer Duran on 02-12-2022 Lymphocytes/100 WBC (Bld) 50.8 % . [facility] MCH Auto (RBC) [Entitic mass ]Ordered By: Jennifer Duran on 02-12-2022 MCH (RBC) [Entitic mass] 20.1 pg 24.7-34.3 [facility] MCHC Auto (RBC) [Mass/Vol]Or dered By: Jennifer Duran on 02-12-2022 MCHC (RBC) [Mass/Vol] 30.4 g/dL 32.0-35.0 [facility] MCV Auto (RBC) [Entitic vol] Ordered By: Jennifer Duran on 02-12-2022 MCV (RBC) [Entitic vol] 66.3 fL 80-100 [facility] Monocytes Auto (Bld) [#/Vol] Ordered By: Jennifer Duran on 02-12-2022 Monocytes (Bld) [#/Vol] 0.3 10*3/uL 0.0-0.8 [facility] Monocytes/100 WBC Auto (Bld) Ordered By: Jennifer Duran on 02-12-2022 Monocytes/100 WBC (Bld) 5.7 % . [facility] Neutrophils Auto (Bld) [#/Vo l]Ordered By: Jennifer Duran on 02-12-2022 Neutrophils (Bld) [#/Vol] 2.4 10*3/uL 1.8-7.7 [facility] Neutrophils/100 WBC Auto (Bl d)Ordered By: Jennifer Duran on 02-12-2022 Neutrophils/100 WBC (Bld) 40.3 % . [facility] No Panel InformationOrdered By: Jennifer Duran on 02-12-2022 Estimated GFR () > 60 mL/Min [facility] Comment on above: GFR estimated refere nce range: According to KDOQI guidelines, <60 ml/min/1.73m2 is sufficient to diagnose a patient with chronic kidney disease. Microcytosis Moderate [facility] Creatinine Clearance (Chem N/A [facility] Platelet Estimate Normal Normal [facility] Platelet Morphology Comment Normal Normal [facility] Platelet mean volume Auto (B ld) [Entitic vol]Ordered By: Jennifer Duran on 02-12-2022 Platelet mean volume (Bld) [Entitic vol] 8.1 fL 6.3-10.7 [facility] Platelets Auto (Bld) [#/Vol] Ordered By: Jennifer Duran on 02-12-2022 Platelets (Bld) [#/Vol] 459 10*3/uL 150-450 [facility] Protein [Mass/volume] in Ser um or PlasmaOrdered By: Jennifer Duran on 02-12-2022 Protein [Mass/Vol] 6.6 g/dL 6.1-7.9 [facility] RBC Auto (Bld) [#/Vol]Ordere d By: Jennifer Duran on 02-12-2022 RBC (Bld) [#/Vol] 4.20 10*6/uL 3.60-5.00 [facility] RBC morphologyOrdered By: Pool Duran on 02-12-2022 RBC morphology finding Nom (Bld) N/A [facility] Serum or plasma alanine syed otransferase measurement without P-5'-P (enzymatic activiOrdered By: Jennifer Duran on 02-12-2022 ALT No additional P-5'-P [Catalytic activity/Vol] 69 U/L 10-60 [facility] Serum or plasma albumin/glob ulin mass ratioOrdered By: Jennifer Duran on 02-12-2022 Albumin/Globulin [Mass ratio] 1.3 {ratio} [facility] Serum or plasma alkaline zeeshan sphatase measurement (enzymatic activity/volume)Ordered By: Jennifer Duran on 02-12-2022 ALP [Catalytic activity/Vol] 73 U/L 32-92 [facility] Serum or plasma anion gap de terminationOrdered By: Jennifer Duran on 02-12-2022 Anion gap [Moles/Vol] 13.2 mmol/L 6.0-15.0 [facility] Serum or plasma aspartate am inotransferase measurement (enzymatic activity/volume)Ordered By: Jennifer Duran on 02-12-2022 AST [Catalytic activity/Vol] 42 U/L 10-42 [facility] Serum or plasma calcium donaldo urement (mass/volume)Ordered By: Jennifer Duran on 02-12-2022 Calcium [Mass/Vol] 9.3 mg/dL 8.2-10.2 [facility] Serum or plasma chloride claudia surement (moles/volume)Ordered By: Jennifer Duran on 02-12-2022 Chloride [Moles/Vol] 101 mmol/L 95-114 [facility] Serum or plasma glucose donaldo urement (mass/volume)Ordered By: Jennifer Duran on 02-12-2022 Glucose [Mass/Vol] 98 mg/dL 70-100 [facility] Comment on above: ADA recommended [...] on 02-12-2022 Potassium [Moles/Vol] 3.6 mmol/L 3.5-5.1 [facility] Serum or plasma sodium measu rement (moles/volume)Ordered By: Jennifer Duran on 02-12-2022 Sodium [Moles/Vol] 136 mmol/L 136-146 [facility] Serum or plasma total biliru bin measurement (mass/volume)Ordered By: Jennifer Duran on 02-12-2022 Bilirubin [Mass/Vol] 0.4 mg/dL 0.3-1.2 [facility] Serum or plasma total carbon dioxide measurement (moles/volume)Ordered By: Jennifer Duran on 02-12-2022 CO2 [Moles/Vol] 25.4 mmol/L 22.0-30.0 [facility] Serum or plasma urea nitroge n measurement (mass/volume)Ordered By: Jennifer Duran on 02-12-2022 Urea nitrogen [Mass/Vol] 4 mg/dL 9-23 [facility] Basophils Auto (Bld) [#/Vol] Ordered By: Kendra Persaud on 09-14-2021 Basophils (Bld) [#/Vol] 0.1 10*3/uL 0.0-0.2 [facility] Basophils/100 WBC Auto (Bld) Ordered By: Kendra Persaud on 09-14-2021 Basophils/100 WBC (Bld) 1.3 % [facility] Bilirubin Test strip Ql (U)O rdered By: Kendra Persaud on 09-14-2021 Bilirubin Ql (U) Negative Negative [facility] Blood hemoglobin measurement (mass/volume)Ordered By: Kendra Persaud on 09-14-2021 Hemoglobin (Bld) [Mass/Vol] 9.7 g/dL 11.8-15.4 [facility] Blood leukocytes automated c ount (number/volume)Ordered By: Kendra Persaud on 09-14-2021 WBC (Bld) [#/Vol] 8.9 10*3/uL 4.5-11.0 [facility] Body fluid albumin measureme nt (mass/volume)Ordered By: Kendra Persaud on 09-14-2021 Albumin (Body fld) [Mass/Vol] 3.7 g/dL 3.2-5.5 [facility] Color Auto (U)Ordered By: Jazmin Persaud on 09-14-2021 Color (U) Yellow Yellow [facility] Creatinine and Glomerular fi ltration rate.predicted panel (S/P/Bld)Ordered By: Kendra Persaud on 09-14-2021 Creatinine [Mass/Vol] 0.71 mg/dL 0.44-1.03 [facility] Eosinophils Auto (Bld) [#/Vo l]Ordered By: Kendra Persaud on 09-14-2021 Eosinophils (Bld) [#/Vol] 0.0 10*3/uL 0.0-0.45 [facility] Eosinophils/100 WBC Auto (Bl d)Ordered By: Kendra Persaud on 09-14-2021 Eosinophils/100 WBC (Bld) 0.4 % [facility] Erythrocyte distribution wid th Auto (RBC) [Ratio]Ordered By: Kendra Persaud on 09-14-2021 Erythrocyte distribution width (RBC) [Ratio] 17.0 % 11.9-15.3 [facility] Estimated glomerular filtrat ion rate (GFR) non- AmericanOrdered By: Kendra Persaud on 09-14-2021 GFR/1.73 sq M.predicted among non-blacks MDRD (S/P/Bld) [Vol rate/Area] > 60 mL/Min [facility] Globulin Calc (S) [Mass/Vol] Ordered By: Kendra Persaud on 09-14-2021 Globulin (S) [Mass/Vol] 3.2 g/dL [facility] HCG ( test) IA.rapi d Ql (U)Ordered By: Kendra Persaud on 09-14-2021 HCG ( test) Ql (U) Negative [facility] Hematocrit Auto (Bld) [Volum e fraction]Ordered By: Kendra Persaud on 09-14-2021 Hematocrit (Bld) [Volume fraction] 31.9 % 34.0-46.4 [facility] Ketones Auto test strip (U) [Mass/Vol]Ordered By: Kendra Persaud on 09-14-2021 Ketones (U) [Mass/Vol] Negative Negative Fi [facility] - Chemistry and C hemistry - challengeOrdered By: Kendra Persaud on 09-14-2021 Lipase [Catalytic activity/Vol] 36.0 U/L 22-51 [facility] - Hematology and Cell countsOrdered By: Kendra Persaud on 09-14-2021 Nucleated RBC/100 WBC (Bld) [Ratio] 0.0 % 0-0.5 [facility] Lymphocytes Auto (Bld) [#/Vo l]Ordered By: Kendra Persaud on 09-14-2021 Lymphocytes (Bld) [#/Vol] 4.1 10*3/uL 1.00-4.8 [facility] Lymphocytes/100 WBC Auto (Bl d)Ordered By: Kendra Persaud on 09-14-2021 Lymphocytes/100 WBC (Bld) 45.7 % [facility] MCH Auto (RBC) [Entitic mass ]Ordered By: Kendra Persaud on 09-14-2021 MCH (RBC) [Entitic mass] 21.3 pg 24.7-34.3 [facility] MCHC Auto (RBC) [Mass/Vol]Or dered By: Kendra Persaud on 09-14-2021 MCHC (RBC) [Mass/Vol] 30.4 g/dL 32.0-35.0 [facility]ir [facility] MCV Auto (RBC) [Entitic vol] Ordered By: Kendra Persaud on 09-14-2021 MCV (RBC) [Entitic vol] 70.0 fL 80-100 [facility] Monocytes Auto (Bld) [#/Vol] Ordered By: Kendra Persaud on 09-14-2021 Monocytes (Bld) [#/Vol] 0.7 10*3/uL 0.0-0.8 [facility] Monocytes/100 WBC Auto (Bld) Ordered By: Kendra Persaud on 09-14-2021 Monocytes/100 WBC (Bld) 7.8 % [facility] Neutrophils Auto (Bld) [#/Vo l]Ordered By: Kendra Persaud on 09-14-2021 Neutrophils (Bld) [#/Vol] 4.0 10*3/uL 1.8-7.7 [facility] Neutrophils/100 WBC Auto (Bl d)Ordered By: Kendra Persaud on 09-14-2021 Neutrophils/100 WBC (Bld) 44.8 % [facility] Nitrite Test strip Ql (U)Ord ered By: Kendra Persaud on 09-14-2021 Nitrite Ql (U) Negative Negative [facility] No Panel InformationOrdered By: Kendra Persaud on 09-14-2021 Estimated GFR () > 60 mL/Min [facility] Comment on above: GFR estimated refere nce range: According to KDOQI guidelines, <60 ml/min/1.73m2 is sufficient to diagnose a patient with chronic kidney disease. Pharmacy Creatinine Clearance (Chem 119.44 [facility] Platelet mean volume Auto (B ld) [Entitic vol]Ordered By: Kendra Persaud on 09-14-2021 Platelet mean volume (Bld) [Entitic vol] 7.4 fL 6.3-10.7 [facility] Platelets Auto (Bld) [#/Vol] Ordered By: Kendra Persaud on 09-14-2021 Platelets (Bld) [#/Vol] 604 10*3/uL 150-450 [facility] Protein Auto test strip (U) [Mass/Vol]Ordered By: Kendra Persaud on 09-14-2021 Protein (U) [Mass/Vol] Negative Negative [facility] Protein [Mass/volume] in Ser um or PlasmaOrdered By: Kendra Persaud on 09-14-2021 Protein [Mass/Vol] 6.9 g/dL 6.1-7.9 [facility] RBC Auto (Bld) [#/Vol]Ordere d By: Kendra Persaud on 09-14-2021 RBC (Bld) [#/Vol] 4.55 10*6/uL 3.60-5.00 [facility] Serum or plasma alanine syed otransferase measurement without P-5'-P (enzymatic activiOrdered By: Kendra Persaud on 09-14-2021 ALT No additional P-5'-P [Catalytic activity/Vol] 16 U/L 10-60 [facility] Serum or plasma albumin/glob ulin mass ratioOrdered By: Kendra Persaud on 09-14-2021 Albumin/Globulin [Mass ratio] 1.2 {ratio} [facility] Serum or plasma alkaline zeeshan sphatase measurement (enzymatic activity/volume)Ordered By: Kendra Persaud on 09-14-2021 ALP [Catalytic activity/Vol] 48 U/L 32-92 [facility] Serum or plasma aspartate am inotransferase measurement (enzymatic activity/volume)Ordered By: Kendra Persaud on 09-14-2021 AST [Catalytic activity/Vol] 17 U/L 10-42 [facility] Serum or plasma calcium donaldo urement (mass/volume)Ordered By: Kendra Persaud on 09-14-2021 Calcium [Mass/Vol] 9.0 mg/dL 8.2-10.2 [facility] Serum or plasma chloride claudia surement (moles/volume)Ordered By: Kendra Persaud on 09-14-2021 Chloride [Moles/Vol] 105 mmol/L 95-114 [facility] Serum or plasma glucose donaldo urement (mass/volume)Ordered By: Kendra Persaud on 09-14-2021 Glucose [Mass/Vol] 94 mg/dL 70-100 [facility] Comment on above: ADA recommended refe rence rangeRandom Glucose Reference Range is dependent on time and content of last meal. Glucose of more than 200 mg/dL in a nonstressed, ambulatory subject supports the diagnosis of Diabetes Mellitus. Serum or plasma potassium me asurement (moles/volume)Ordered By: Kendra Persaud on 09-14-2021 Potassium [Moles/Vol] 3.1 mmol/L 3.5-5.1 [facility] Serum or plasma sodium measu rement (moles/volume)Ordered By: Kendra Persaud on 09-14-2021 Sodium [Moles/Vol] 139 mmol/L 136-146 [facility] Serum or plasma total biliru bin measurement (mass/volume)Ordered By: Kendra Persaud on 09-14-2021 Bilirubin [Mass/Vol] 0.5 mg/dL 0.3-1.2 [facility] Serum or plasma total carbon dioxide measurement (moles/volume)Ordered By: Kendra Persaud on 09-14-2021 CO2 [Moles/Vol] 23.7 mmol/L 22.0-30.0 [facility] Serum or plasma urea nitroge n measurement (mass/volume)Ordered By: Kendra Persaud on 09-14-2021 Urea nitrogen [Mass/Vol] 4 mg/dL 9 [facility] Specific gravity Auto test s trip (U) [Rel density]Ordered By: Kendra Persaud on 09-14-2021 Specific gravity (U) [Rel density] 1.004 1.001-1.030 [facility] Urine clarity by refractomet ry automatedOrdered By: Kendra Persaud on 09-14-2021 Clarity Refractometry automated (U) Clear Clear [facility] Urine glucose measurement by automated test strip (mass/volume)Ordered By: Kendra Persaud on 09-14-2021 Glucose Auto test strip (U) [Mass/Vol] Normal mg/dL Normal [facility] Urine hemoglobin detection b y automated test stripOrdered By: Kendra Persaud on 09-14-2021 Hemoglobin Auto test strip Ql (U) Negative Negative [facility] Urine leukocyte esterase det ection by automated test stripOrdered By: Kendra Persaud on 09-14-2021 Leukocyte esterase Auto test strip Ql (U) Negative Negative [facility] Urobilinogen Auto test strip (U) [Mass/Vol]Ordered By: Kendra Persaud on 09-14-2021 Urobilinogen (U) [Mass/Vol] Normal mg/dL Normal [facility] pH Auto test strip (U)Ordere d By: Kendra Persaud on 09-14-2021 pH (U) 6.5 [pH] 5.0-9.0 [facility] Basophils Auto (Bld) [#/Vol] Ordered By: Augustus Santiago on 07-04-2021 Basophils (Bld) [#/Vol] 0.1 10*3/uL 0.0-0.2 [facility] Basophils/100 WBC Auto (Bld) Ordered By: Augustus Santiago on 07-04-2021 Basophils/100 WBC (Bld) 0.9 % [facility] Blood hemoglobin measurement (mass/volume)Ordered By: Augustus Santiago on 07-04-2021 Hemoglobin (Bld) [Mass/Vol] 10.2 g/dL 11.8-15.4 [facility] Blood leukocytes automated c ount (number/volume)Ordered By: Augustus Santiago on 07-04-2021 WBC (Bld) [#/Vol] 6.6 10*3/uL 4.5-11.[address] [facility] [address] biopsyOrdered By: Augustus powell on 07-04-2021 Transferrin [Mass/Vol] 360 mg/dL 180-380 [facility] Creatinine and Glomerular fi ltration rate.predicted panel (S/P/Bld)Ordered By: Augustus Santiago on 07-04-2021 Creatinine [Mass/Vol] 0.69 mg/dL 0.44-1.03 [facility] Eosinophils Auto (Bld) [#/Vo l]Ordered By: Augustus Santiago on 07-04-2021 Eosinophils (Bld) [#/Vol] 0.1 10*3/uL 0.0-0.45 [facility] Eosinophils/100 WBC Auto (Bl d)Ordered By: Augustus Santiago on 07-04-2021 Eosinophils/100 WBC (Bld) 1.2 % [facility] Erythrocyte distribution wid th Auto (RBC) [Ratio]Ordered By: Augustus Santiago on 07-04-2021 Erythrocyte distribution width (RBC) [Ratio] 17.2 % 11.9-15.3 [facility] Estimated glomerular filtrat ion rate (GFR) non- AmericanOrdered By: Augustus Santiago on 07-04-2021 GFR/1.73 sq M.predicted among non-blacks MDRD (S/P/Bld) [Vol rate/Area] > 60 mL/Min [facility] Hematocrit Auto (Bld) [Volum e fraction]Ordered By: Augustus Santiago on 07-04-2021 Hematocrit (Bld) [Volume fraction] 32.0 % 34.0-46.4 [facility] Iron [Mass/volume] in Serum or PlasmaOrdered By: Augustus Santiago on 07-04-2021 Iron [Mass/Vol] 10 ug/dL 40-150 [facility] Iron binding capacity [Mass/ volume] in Serum or PlasmaOrdered By: Augustus Santiago on 07-04-2021 Iron binding capacity [Mass/Vol] 504 ug/dL 255-450 [facility] Iron saturation [Mass Fracti on] in Serum or PlasmaOrdered By: Augustus Santiago on 07-04-2021 Iron saturation [Mass fraction] 1.0 % 20-50 [facility] - Hematology and Cell countsOrdered By: Augustus Santiago on 07-04-2021 Nucleated RBC/100 WBC (Bld) [Ratio] 0.0 % 0-0.5 [facility] Lymphocytes Auto (Bld) [#/Vo l]Ordered By: Augustus Santiago on 07-04-2021 Lymphocytes (Bld) [#/Vol] 1.9 10*3/uL 1.00-4.8 [facility] Lymphocytes/100 WBC Auto (Bl d)Ordered By: Augustus Santiago on 07-04-2021 Lymphocytes/100 WBC (Bld) 28.4 % [facility] MCH Auto (RBC) [Entitic mass ]Ordered By: Augustus Santiago on 07-04-2021 MCH (RBC) [Entitic mass] 22.7 pg 24.7-34.3 [facility] MCHC Auto (RBC) [Mass/Vol]Or dered By: Augustus Santiago on 07-04-2021 MCHC (RBC) [Mass/Vol] 31.9 g/dL 32.0-35.0 [facility] MCV Auto (RBC) [Entitic vol] Ordered By: Augustus Santiago on 07-04-2021 MCV (RBC) [Entitic vol] 71.3 fL 80-100 [facility] Monocytes Auto (Bld) [#/Vol] Ordered By: Augustus Santiago on 07-04-2021 Monocytes (Bld) [#/Vol] 0.5 10*3/uL 0.0-0.8 [facility] Monocytes/100 WBC Auto (Bld) Ordered By: Augustus Santiaog on 07-04-2021 Monocytes/100 WBC (Bld) 7.6 % [facility] Neutrophils Auto (Bld) [#/Vo l]Ordered By: Augustus Santiago on 07-04-2021 Neutrophils (Bld) [#/Vol] 4.1 10*3/uL 1.8-7.7 [facility] Neutrophils/100 WBC Auto (Bl d)Ordered By: Augustus Santiago on 07-04-2021 Neutrophils/100 WBC (Bld) 61.9 % [facility] No Panel InformationOrdered By: Augustsu Santiago on 07-04-2021 D-Dimer Quantitative (PE/DVT) < 200 ng/mL 0-243 [facility] Comment on above: The reference range for [...] conditions. Estimated GFR () > 60 mL/Min [facility] Comment on above: GFR estimated refere nce range: According to KDOQI guidelines, <60 ml/min/1.73m2 is sufficient to diagnose a patient with chronic kidney disease. Pharmacy Creatinine Clearance (Chem N/A [facility] Platelet mean volume Auto (B ld) [Entitic vol]Ordered By: Augustus Santiago on 07-04-2021 Platelet mean volume (Bld) [Entitic vol] 7.9 fL 6.3-10.7 [facility] Platelets Auto (Bld) [#/Vol] Ordered By: Augustus Santiago on 07-04-2021 Platelets (Bld) [#/Vol] 457 10*3/uL 150-450 [facility] RBC Auto (Bld) [#/Vol]Ordere d By: Augustus Santiago on 07-04-2021 RBC (Bld) [#/Vol] 4.48 10*6/uL 3.60-5.00 [facility] Serum or plasma calcium donaldo urement (mass/volume)Ordered By: Augustus Santiago on 07-04-2021 Calcium [Mass/Vol] 8.9 mg/dL 8.2-10.2 [facility] Serum or plasma chloride claudia surement (moles/volume)Ordered By: Augustus Santiago on 07-04-2021 Chloride [Moles/Vol] 105 mmol/L 95-114 [facility] Serum or plasma glucose donaldo urement (mass/volume)Ordered By: Augustus Santiago on 07-04-2021 Glucose [Mass/Vol] 110 mg/dL 70-100 [facility] Comment on above: ADA recommended refe rence rangeRandom Glucose Reference Range is dependent on time and content of last meal. Glucose of more than 200 mg/dL in a nonstressed, ambulatory subject supports the diagnosis of Diabetes Mellitus. Serum or plasma potassium me asurement (moles/volume)Ordered By: Augustus Santiago on 07-04-2021 Potassium [Moles/Vol] 3.5 mmol/L 3.5-5.1 [facility] Serum or plasma sodium measu rement (moles/volume)Ordered By: Augustus Santiago on 07-04-2021 Sodium [Moles/Vol] 136 mmol/L 136-146 [facility] Serum or plasma total carbon dioxide measurement (moles/volume)Ordered By: Augustus Santiago on 07-04-2021 CO2 [Moles/Vol] 23.0 mmol/L 22.0-30.0 [facility] Serum or plasma urea nitroge n measurement (mass/volume)Ordered By: Augustus Santiago on 07-04-2021 Urea nitrogen [Mass/Vol] 5 mg/dL 9-23 [facility] Cardiac Stress Teston 2020 Cardiac Stress Test [address], [address] [facility], [place] [address] TRANSTHORACIC ECHOCARDIOGRAM REPORT Patient Name: ANTONIA NOYOLA Juni Physician: [id number] Raphael Alas MD Study Date: 08/06/2020 Referring Physician: Ranulfo CANTU MRN/PID: [id number] PCP: Jennifer Duran Accession/Order#: [id number] Department Location: [facility] Le[place] Date of : 1985 Fellow: Gender: F Nurse: Admit Date: Shelving Supervisor: Josephine Newton RDCS, RVT Height: 165.10 cm CC Report to: Weight: 88.00 kg Study Type: Echocardiogram BSA: 1.95 m2 Diagnosis/ICD: R06.00-Dyspnea, unspecified; R00.0-Tachycardia, unspecified Indication: Obesity, Family History of CAD Procedure/CPT: Echo Complete w Full [id number] Study Detail: The following Echo studies were [...] 0.9 m/s (0.6-0.9m/s) PV Max P.0 mmHg [id number] Raphael Alas MD Electronically signed on 08/07/2020 at 4:26:59 PM Final Normal [facility] Vital Signs Date Time Vital Sign Value Performing Clinician Facility 08-10-2024 22:41-0500 Diastolic blood pressure 82 mm[Hg] Jignesh Dumont [facility] 08-10-2024 22:41-0500 Heart rate 97 /min Jignesh Tim [facility] 08-10-2024 22:41-0500 Respiratory rate 18 /min Jignesh Tim [facility] 08-10-2024 22:41-0500 SaO2% (BldA) [Mass fraction] 98 % Jignesh Tim [facility] 08-10-2024 22:41-0500 Systolic blood pressure 137 mm[Hg] Jignesh Tim [facility] 08-10-2024 19:53-0500 Body temperature 98.06 [degF] Jignesh Dumont [facility] 08-10-2024 19:53-0500 Diastolic blood pressure 94 mm[Hg] Jignesh Tim [facility] 08-10-2024 19:53-0500 Heart rate 126 /min Jignesh Tim [facility] 08-10-2024 19:53-0500 Respiratory rate 20 /min Jignesh Tim [facility] 08-10-2024 19:53-0500 SaO2% (BldA) [Mass fraction] 99 % Jignesh Dumont [facility] 08-10-2024 19:53-0500 Systolic blood pressure 147 mm[Hg] Jignesh Tim [facility] 08-05-2024 18:03-0500 Diastolic blood pressure 80 mm[Hg] Dimitri Yevgeniy [facility] 08-05-2024 18:03-0500 Heart rate 92 /min Dimitri Yevgeniy [facility] 08-05-2024 18:03-0500 Respiratory rate 20 /min Dimitri Vuong [facility] 08-05-2024 18:03-0500 SaO2% (BldA) [Mass fraction] 100 % [facility] [facility] 08-05-2024 18:03-0500 Systolic blood pressure 129 mm[Hg] Dimitri Vuong [facility] 08-05-2024 11:12-0500 Body temperature 97.52 [degF] Dimitri Vuong [facility] 08-05-2024 11:12-0500 Diastolic blood pressure 72 mm[Hg] Dimitri Vuong [facility] 08-05-2024 11:12-0500 Heart rate 114 /min Dimitri Vuong [facility] 08-05-2024 11:12-0500 Respiratory rate 20 /min Dimitri Vuong [facility] 08-05-2024 11:12-0500 SaO2% (BldA) [Mass fraction] 100 % Dimitri Vuong [facility] 08-05-2024 11:12-0500 Systolic blood pressure 134 mm[Hg] Dimitri Vuong [facility] 08-02-2024 18:54-0500 Diastolic blood pressure 84 mm[Hg] [facility] 08-02-2024 18:54-0500 Mean blood pressure 99 mm[Hg] [facility] 08-02-2024 18:54-0500 Respiratory rate 18 /min [facility] 08-02-2024 18:54-0500 SaO2% (BldA) [Mass fraction] 99 % [facility] 08-02-2024 18:54-0500 Systolic blood pressure 129 mm[Hg] [facility] 08-02-2024 18:53-0500 Diastolic blood pressure 84 mm[Hg] [facility] 08-02-2024 18:53-0500 Heart rate 114 /min [facility] 08-02-2024 18:53-0500 Respiratory rate 16 /min [facility] 08-02-2024 18:53-0500 SaO2% (BldA) [Mass fraction] 98 % [facility] 08-02-2024 18:53-0500 Systolic blood pressure 129 mm[Hg] [facility] 08-02-2024 14:44-0500 Body temperature 98.06 [degF] [facility] 08-02-2024 14:44-0500 Diastolic blood pressure 92 mm[Hg] [facility] 08-02-2024 14:44-0500 Heart rate 108 /min [facility] 08-02-2024 14:44-0500 Respiratory rate 18 /min [facility] 08-02-2024 14:44-0500 SaO2% (BldA) [Mass fraction] 100 % [facility] 08-02-2024 14:44-0500 Systolic blood pressure 162 mm[Hg] [facility] 08-01-2024 19:22-0500 Body temperature 99.39 [degF] Konstantin Jain MD Work Phone: [facility] 08-01-2024 19:22-0500 Diastolic blood pressure 83 mm[Hg] Konstantin Jain MD Work Phone: [facility] 08-01-2024 19:22-0500 Heart rate 115 /min Konstantin Jain MD Work Phone: [facility] 08-01-2024 19:22-0500 Respiratory rate 16 /min Konstantin Jain MD Work Phone: [facility] 08-01-2024 19:22-0500 SaO2% (BldA) [Mass fraction] 100 % Konstantin Jain MD Work Phone: [facility] 08-01-2024 19:22-0500 Systolic blood pressure 144 mm[Hg] Konstantin Jain MD Work Phone: [facility] [employer] [facility] 07-29-2024 19:10-0500 Body height 165.1 cm Rose Hardy MD Work Phone: [employer] 07-29-2024 19:10-0500 Body mass index (BMI) [Ratio] 32.45 kg/m2 Rose Hardy MD Work Phone: [employer] 07-29-2024 19:10-0500 Body temperature 98.29 [degF] Rose Hardy MD Work Phone: [employer] 07-29-2024 19:10-0500 Body weight 88.45 kg Rose Hardy MD Work Phone: [employer] 07-29-2024 19:10-0500 Diastolic blood pressure 101 mm[Hg] Rose Hardy MD Work Phone: [employer] 07-29-2024 19:10-0500 Heart rate 128 /min Rose Hardy MD Work Phone: [employer] 07-29-2024 19:10-0500 Respiratory rate 18 /min Rose Hardy MD Work Phone: [employer] 07-29-2024 19:10-0500 SaO2% (BldA) [Mass fraction] 99 % Rose Hardy MD Work Phone: [employer] 07-29-2024 19:10-0500 Systolic blood pressure 139 mm[Hg] Rose Hardy MD Work Phone: [employer] 07-14-2024 19:20-0500 Diastolic blood pressure 74 mm[Hg] Donya Romano MD Work Phone: [employer] [facility] 07-14-2024 19:20-0500 Heart rate 118 /min [facility] 07-14-2024 19:20-0500 Respiratory rate 18 /min Donya Romano MD Work Phone: [facility] 07-14-2024 19:20-0500 SaO2% (BldA) [Mass fraction] 100 % Donya Romano MD Work Phone: [facility] 07-14-2024 19:20-0500 Systolic blood pressure 146 mm[Hg] Donya Romano MD Work Phone: [facility] 07-14-2024 18:23-0500 Body temperature 98.8 [degF] [facility] 07-11-2024 23:12-0500 Diastolic blood pressure 105 mm[Hg] Shalonda Bacon MD Work Phone: [employer] 07-11-2024 23:12-0500 Heart rate 125 /min Shalonda Bacon MD Work Phone: [employer] 07-11-2024 23:12-0500 Respiratory rate 18 /min Shalonda Bacon MD Work Phone: [employer] 07-11-2024 23:12-0500 Systolic blood pressure 147 mm[Hg] Shalonda Bacon MD Work Phone: [employer] 07-11-2024 22:45-0500 Body temperature 97.3 [degF] Shalonda Bacon MD Work Phone: [employer] 07-11-2024 22:45-0500 SaO2% (BldA) [Mass fraction] 100 % Shalonda Bacon MD Work Phone: [employer] 06-28-2024 01:00-0500 Diastolic blood pressure 134 mm[Hg] Unaadelso Willett [facility] 06-28-2024 01:00-0500 Heart rate 119 /min Kaylinn Dokken [facility] 06-28-2024 01:00-0500 Mean blood pressure 142 mm[Hg] Kaylinn Dokken [facility] 06-28-2024 01:00-0500 SaO2% (BldA) [Mass fraction] 95 % Kaylinn Dokken [facility] 06-28-2024 01:00-0500 Systolic blood pressure 157 mm[Hg] Kaylinn Dokken [facility] 06-28-2024 00:00-0500 Diastolic blood pressure 98 mm[Hg] Kaylinn Dokken [facility] 06-28-2024 00:00-0500 Heart rate 137 /min Kaylinn Dokken [facility] 06-28-2024 00:00-0500 Mean blood pressure 121 mm[Hg] Kaylinn Dokken [facility] 06-28-2024 00:00-0500 Systolic blood pressure 168 mm[Hg] Kaylinn Dokken [facility] 06-27-2024 22:12-0500 Body temperature 97.34 [degF] Kaylinn Dokken [facility] 06-27-2024 22:12-0500 Diastolic blood pressure 85 mm[Hg] Kaylinn Dokken [facility] 06-27-2024 22:12-0500 Heart rate 125 /min Kaylinn Dokken [facility] 06-27-2024 22:12-0500 Respiratory rate 20 /min Kaylinn Dokken [facility] 06-27-2024 22:12-0500 SaO2% (BldA) [Mass fraction] 100 % Jordyn Willett [facility] 06-27-2024 22:12-0500 Systolic blood pressure 133 mm[Hg] Jordyn Willett [facility] 06-27-2024 15:15-0500 Diastolic blood pressure 85 mm[Hg] Randee Richardson MD Work Phone: [employer] 06-27-2024 15:15-0500 SaO2% (BldA) [Mass fraction] 97 % Randee Richardson MD Work Phone: [employer] 06-27-2024 15:15-0500 Systolic blood pressure 129 mm[Hg] Randee Richardson MD Work Phone: [employer] 06-27-2024 13:28-0500 Body mass index (BMI) [Ratio] 30.79 kg/m2 Randee Richardson MD Work Phone: [employer] 06-27-2024 13:28-0500 Body temperature 97.7 [degF] Randee Richardson MD Work Phone: [employer] 06-27-2024 13:28-0500 Body weight 83.92 kg Randee Richardson MD Work Phone: [employer] 06-27-2024 13:28-0500 Heart rate 103 /min Randee Richardson MD Work Phone: [employer] 06-27-2024 13:28-0500 Respiratory rate 16 /min Randee Richardson MD Work Phone: [employer] 06-25-2024 01:00-0500 Diastolic blood pressure 90 mm[Hg] Ritesh Ivana [facility] 06-25-2024 01:00-0500 Heart rate 128 /min Ritesh Ivana [facility] 06-25-2024 01:00-0500 Mean blood pressure 105 mm[Hg] Ritesh Ivana [facility] 06-25-2024 01:00-0500 SaO2% (BldA) [Mass fraction] 97 % Ritesh Ivana [facility] 06-25-2024 01:00-0500 Systolic blood pressure 135 mm[Hg] Ritesh Ivana [facility] 06-25-2024 00:30-0500 Diastolic blood pressure 85 mm[Hg] Ritesh Ivana [facility] 06-25-2024 00:30-0500 Heart rate 124 /min Ritesh Ivana [facility] 06-25-2024 00:30-0500 Mean blood pressure 96 mm[Hg] Ritesh Ivana [facility] 06-25-2024 00:30-0500 Respiratory rate 20 /min Ritesh Ivana [facility] 06-25-2024 00:30-0500 SaO2% (BldA) [Mass fraction] 100 % Ritesh Ivana [facility] 06-25-2024 00:30-0500 Systolic blood pressure 118 mm[Hg] Ritesh Ivana [facility] 06-24-2024 23:35-0500 Diastolic blood pressure 97 mm[Hg] Ritesh Ivana [facility] 06-24-2024 23:35-0500 Heart rate 121 /min Ritesh Ivana [facility] 06-24-2024 23:35-0500 Mean blood pressure 110 mm[Hg] Ritesh Ivana [facility] 06-24-2024 23:35-0500 SaO2% (BldA) [Mass fraction] 100 % Ritesh Ivana [facility] 06-24-2024 23:35-0500 Systolic blood pressure 136 mm[Hg] Ritesh Ivana [facility] 06-24-2024 19:30-0500 Body temperature 97.7 [degF] Ritesh Ivana [facility] 06-24-2024 19:30-0500 Heart rate 147 /min Ritesh Lynnner [facility] 03-23-2024 12:03-0400 Body mass index (BMI) [Ratio] 32.5 kg/m2 [facility] 03-23-2024 12:03-0400 Body temperature 97.9 [degF] [facility] 03-23-2024 12:03-0400 Body weight 88.9 kg [facility] 03-23-2024 12:03-0400 Diastolic blood pressure 64 mm[Hg] [facility] 03-23-2024 12:03-0400 Heart rate 91 /min [facility] 03-23-2024 12:03-0400 SaO2% (BldA) [Mass fraction] 98 % [facility] 03-23-2024 12:03-0400 Systolic blood pressure 102 mm[Hg] [facility] 03-23-2024 08:40-0400 Body height 165.1 cm [facility] 03-03-2024 15:27-0400 Body temperature 98.71 [degF] Davi Pay DO Work Phone: [facility] 03-03-2024 15:27-0400 Diastolic blood pressure 84 mm[Hg] Davi Pay DO Work Phone: [facility] 09-21-2024 15:27-0400 Heart rate 115 /min Davi Pay DO Work Phone: [employer] [facility] 03-03-2024 15:27-0400 Respiratory rate 18 /min Davi Pay DO [facility] 03-03-2024 15:27-0400 SaO2% (BldA) [Mass fraction] 97 % Davi Pay DO Work Phone: [facility] 03-03-2024 15:27-0400 Systolic blood pressure 164 mm[Hg] Davi Pay DO Work Phone: [facility] 02-24-2024 20:29-0400 Body height 165.1 cm Ashley Delcid MD Work Phone: [facility] 02-24-2024 20:29-0400 Body temperature 98.01 [degF] Ashley Delcid MD Work Phone: [facility] [employer] [facility] 02-24-2024 20:29-0400 Diastolic blood pressure 72 mm[Hg] Ashley Delcid MD Work Phone: [employer] [facility] 02-24-2024 20:29-0400 Heart rate 94 /min Ashley Delcid MD Work Phone: [facility] [employer] [facility] 02-24-2024 20:29-0400 Respiratory rate 20 /min Ashley Delcid MD Work Phone: [facility] [employer] [facility] 02-24-2024 20:29-0400 SaO2% (BldA) [Mass fraction] 99 % Ashley Delcid MD Work Phone: [employer] [facility] 02-24-2024 20:29-0400 Systolic blood pressure 129 mm[Hg] Ashley Delcid MD Work Phone: [facility] 02-16-2024 16:47-0400 Diastolic blood pressure 68 mm[Hg] Jennifer Moore MD Work Phone: [facility] 02-16-2024 16:47-0400 Heart rate 99 /min Jennifer Moore MD Work Phone: [facility] 02-16-2024 16:47-0400 SaO2% (BldA) [Mass fraction] 96 % Jennifer Moore MD Work Phone: [facility] 02-16-2024 16:47-0400 Systolic blood pressure 115 mm[Hg] Jennifer Moore MD Work Phone: [facility] 02-16-2024 16:38-0400 Respiratory rate 18 /min Jennifer Moore MD Work Phone: [facility] 02-16-2024 13:28-0400 Body temperature 98.29 [degF] Jennifer Moore MD Work Phone: [facility] 02-13-2024 00:26-0400 Body temperature 98.24 [degF] Ritesh Ivana [facility] 02-13-2024 00:26-0400 Diastolic blood pressure 72 mm[Hg] Ritesh Ivana [facility] 02-13-2024 00:26-0400 Heart rate 86 /min Ritesh Ivana [facility] 02-13-2024 00:26-0400 Respiratory rate 16 /min Ritesh Ivana [facility] 02-13-2024 00:26-0400 SaO2% (BldA) [Mass fraction] 100 % Ritesh Ivana [facility] 02-13-2024 00:26-0400 Systolic blood pressure 109 mm[Hg] Ritesh Ivana [facility] 01-22-2024 12:13-0400 Body height 165.1 cm Eren Camejo DO Work Phone: [facility] 01-22-2024 12:13-0400 Body mass index (BMI) [Ratio] 29.95 kg/m2 Eren Camejo DO Work Phone: [facility] 01-22-2024 12:13-0400 Body temperature 98.71 [degF] Eren Camejo DO Work Phone: [facility] [employer] 01-22-2024 12:13-0400 Body weight 81.65 kg Eren Camejo DO Work Phone: [facility] [employer] 01-22-2024 12:13-0400 Diastolic blood pressure 92 mm[Hg] Eren Camejo DO Work Phone: [facility] [employer] 01-22-2024 12:13-0400 Heart rate 109 /min [facility]jo [facility] 01-22-2024 12:13-0400 Respiratory rate 18 /min E[facility]jo DO [facility] 01-22-2024 12:13-0400 SaO2% (BldA) [Mass fraction] 100 % Eren [facility]amejo DO [facility] 01-22-2024 12:13-0400 Systolic blood pressure 152 mm[Hg] Eren [facility]jo DO [facility] 01-19-2024 11:18-0400 Body height 165.1 cm DO Jennifer Kendallivelisse Work Phone: [facility] 01-19-2024 11:18-0400 Body mass index (BMI) [Ratio] 31.9 kg/m2 DO Jennifer Duran Work Phone: [facility] 01-19-2024 11:18-0400 Body temperature 98.2 [degF] DO Jennifer Duran Work Phone: [facility] 01-19-2024 11:18-0400 Body weight 87.08 kg DO Jennifer Duran Work Phone: [facility] 01-19-2024 11:18-0400 Diastolic blood pressure 82 mm[Hg] DO Jennifer Duran Work Phone: [facility] 01-19-2024 11:18-0400 Heart rate 102 /min DO Jennifer Duran Work Phone: [facility] 01-19-2024 11:18-0400 Respiratory rate 18 /min DO Jennifer Duran Work Phone: [facility] 01-19-2024 11:18-0400 SaO2% (BldA) [Mass fraction] 98 % DO Jennifer Duran Work Phone: [facility] 01-19-2024 11:18-0400 Systolic blood pressure 122 mm[Hg] DO Jennifer Duran Work Phone: [facility] 11-08-2023 14:03-0400 Body height 165.1 cm DO Jennifer Duran Work Phone: [facility] 11-08-2023 14:03-0400 Body temperature 98.1 [degF] DO Jennifer Duran Work Phone: [facility] 11-08-2023 14:03-0400 Body weight 82.85 kg DO Jennifer Duran Work Phone: [facility] 11-08-2023 14:03-0400 Diastolic blood pressure 77 mm[Hg] DO Jennifer Duran Work Phone: [facility] 11-08-2023 14:03-0400 Heart rate 86 /min DO Jennifer Duran Work Phone: [facility] 11-08-2023 14:03-0400 Respiratory rate 16 /min DO Jennifer Duran Work Phone: [facility] 11-08-2023 14:03-0400 SaO2% (BldA) [Mass fraction] 100 % DO Jennifer Duran Work Phone: [facility] 11-08-2023 14:03-0400 Systolic blood pressure 142 mm[Hg] DO Jennifer Duran Work Phone: [facility] 11-08-2023 11:56-0400 Body height 165.1 cm Eren Camejo Work Phone: [facility] 11-08-2023 11:56-0400 Body mass index (BMI) [Ratio] 30.45 kg/m2 Erne Camejo DO Work Phone: [facility] [employer] 11-08-2023 11:56-0400 Body temperature 97.81 [degF] Eren [facility]amejo DO [facility]: [facility] 11-08-2023 11:56-0400 Body weight 83.01 kg Eren Camejo DO Work Phone: [facility] [employer] 11-08-2023 11:56-0400 Diastolic blood pressure 86 mm[Hg] Eren Camejo DO Work Phone: [facility] [employer] 11-08-2023 11:56-0400 Heart rate 100 /min Eren [facility]amejo DO [facility] 11-08-2023 11:56-0400 Respiratory rate 18 /min Eren [facility]amejo DO [facility] 11-08-2023 11:56-0400 SaO2% (BldA) [Mass fraction] 99 % Eren Camejo DO Work Phone: [facility] [employer] 11-08-2023 11:56-0400 Systolic blood pressure 133 mm[Hg] Eren [facility]amejo DO [facility] 09-30-2023 02:09-0400 Diastolic blood pressure 89 mm[Hg] [facility] 09-30-2023 02:09-0400 Heart rate 124 /min Ritesh Ivana [facility] 09-30-2023 02:09-0400 Mean blood pressure 109 mm[Hg] Ritesh Ivana [facility] 09-30-2023 02:09-0400 Respiratory rate 20 /min Ritesh Ivana [facility] 09-30-2023 02:09-0400 SaO2% (BldA) [Mass fraction] 98 % Ritesh Ivana [facility] 09-30-2023 02:09-0400 Systolic blood pressure 149 mm[Hg] Ritesh Ivana [facility] 09-30-2023 01:00-0400 Diastolic blood pressure 82 mm[Hg] Ritesh Ivana [facility] 09-30-2023 01:00-0400 Heart rate 118 /min Ritesh Ivana [facility] 09-30-2023 01:00-0400 Mean blood pressure 104 mm[Hg] Ritesh Ivana [facility] 09-30-2023 01:00-0400 SaO2% (BldA) [Mass fraction] 99 % Ritesh Ivana [facility] 09-30-2023 01:00-0400 Systolic blood pressure 147 mm[Hg] Ritesh Ivana [facility] 09-29-2023 23:40-0400 Body temperature 97.7 [degF] Ritesh Ivana [facility] 09-29-2023 23:40-0400 Diastolic blood pressure 92 mm[Hg] Ritesh Ivana [facility] 09-29-2023 23:40-0400 Heart rate 139 /min Ritesh Ivana [facility] 09-29-2023 23:40-0400 Respiratory rate 20 /min Ritesh Ivana [facility] 09-29-2023 23:40-0400 SaO2% (BldA) [Mass fraction] 100 % Ritesh Ivana [facility] 09-29-2023 23:40-0400 Systolic blood pressure 144 mm[Hg] Ritesh Ivana [facility] 09-26-2023 18:00-0400 Heart rate 119 /min Konstantin Zohaib [facility] 09-26-2023 18:00-0400 SaO2% (BldA) [Mass fraction] 96 % Konstantin Zohaib [facility] 09-26-2023 17:30-0400 Diastolic blood pressure 124 mm[Hg] Konstantin Zohaib [facility] 09-26-2023 17:30-0400 Heart rate 105 /min Konstantin Zohaib [facility] 09-26-2023 17:30-0400 Mean blood pressure 129 mm[Hg] Konstantin Zohaib [facility] 09-26-2023 17:30-0400 SaO2% (BldA) [Mass fraction] 100 % Konstantin Zohaib [facility] 09-26-2023 17:30-0400 Systolic blood pressure 139 mm[Hg] Konstantin Zohaib [facility] 09-26-2023 16:48-0400 Diastolic blood pressure 82 mm[Hg] Konstantin Zohaib [facility] 09-26-2023 16:48-0400 Heart rate 126 /min Konstantin Zohaib [facility] 09-26-2023 16:48-0400 Mean blood pressure 101 mm[Hg] Konstantin Zohaib [facility] 09-26-2023 16:48-0400 Respiratory rate 18 /min Konstantin Zohaib [facility] 09-26-2023 16:48-0400 SaO2% (BldA) [Mass fraction] 100 % Konstantin Zohaib [facility] 09-26-2023 16:48-0400 Systolic blood pressure 139 mm[Hg] Konstantin Penny [facility] 09-26-2023 16:30-0400 Diastolic blood pressure 96 mm[Hg] Konstantin Penny [facility] 09-26-2023 16:30-0400 Mean blood pressure 105 mm[Hg] Konstantin Penny [facility] 09-26-2023 16:30-0400 Respiratory rate 18 /min Konstantin Penny [facility] 09-26-2023 16:30-0400 Systolic blood pressure 122 mm[Hg] Konstantin Penny [facility] 09-26-2023 14:45-0400 Respiratory rate 18 /min Konstantin Penny [facility] 09-26-2023 14:13-0400 Body temperature 98.6 [degF] Konstantin Penny [facility] 07-31-2023 18:01-0500 Diastolic blood pressure 87 mm[Hg] Jignehs Dumont [facility] 07-31-2023 18:01-0500 Heart rate 121 /min Jignesh Dumont [facility] 07-31-2023 18:01-0500 Mean blood pressure 99 mm[Hg] Jignesh Tim [facility] 07-31-2023 18:01-0500 Respiratory rate 16 /min Jignesh Tim [facility] 07-31-2023 18:01-0500 SaO2% (BldA) [Mass fraction] 99 % Jignesh Dumont [facility] 07-31-2023 18:01-0500 Systolic blood pressure 123 mm[Hg] Jignesh Dumont [facility] 07-31-2023 17:00-0500 Diastolic blood pressure 77 mm[Hg] Jignesh Tim [facility] 07-31-2023 17:00-0500 Heart rate 96 /min Jignesh Tim [facility] 07-31-2023 17:00-0500 Mean blood pressure 92 mm[Hg] Jignesh Tim [facility] 07-31-2023 17:00-0500 Systolic blood pressure 122 mm[Hg] Jignesh Tim [facility] 07-31-2023 16:07-0500 Diastolic blood pressure 90 mm[Hg] Jignesh Tim [facility] 07-31-2023 16:07-0500 Heart rate 117 /min Jignesh Tim [facility] 07-31-2023 16:07-0500 Mean blood pressure 105 mm[Hg] Jignesh Tim [facility] 07-31-2023 16:07-0500 Respiratory rate 19 /min Jignesh Tim [facility] 07-31-2023 16:07-0500 SaO2% (BldA) [Mass fraction] 100 % Jignesh Tim [facility] 07-31-2023 16:07-0500 Systolic blood pressure 135 mm[Hg] Jignesh Tim [facility] 07-31-2023 16:06-0500 Respiratory rate 18 /min Jignesh Tim [facility] 07-31-2023 15:34-0500 Body temperature 97.88 [degF] Jignesh Tim [facility] 07-31-2023 15:34-0500 Heart rate 136 /min Jignesh Tim [facility] 07-31-2023 15:34-0500 Respiratory rate 18 /min Jignesh Dumont [facility] 07-19-2023 12:40-0500 Body height 165.1 cm Jennifer Duran Other [facility] [employer] Other 04-30-2023 18:19-0500 Diastolic blood pressure 82 mm[Hg] DO Jennifer Duran Work Phone: [facility] 04-30-2023 18:19-0500 Heart rate 128 /min DO Jennifer Duran Work Phone: [facility] 04-30-2023 18:19-0500 Respiratory rate 18 /min DO Jennifer Duran Work Phone: [facility] 04-30-2023 18:19-0500 SaO2% (BldA) [Mass fraction] 99 % DO Jennifer Duran Work Phone: [facility] 04-30-2023 18:19-0500 Systolic blood pressure 116 mm[Hg] DO Jennifer Duran Work Phone: [facility] 04-30-2023 16:43-0500 Body height 165.1 cm DO Jennifer Duran Work Phone: [facility] 04-30-2023 16:43-0500 Body temperature 98.1 [degF] DO Jennifer Duran Work Phone: [facility] 04-30-2023 16:43-0500 Body weight 62.3 kg DO Jennifer Duran Work Phone: [facility] 04-24-2023 15:51-0500 Diastolic blood pressure 81 mm[Hg] Jignesh Dumont [facility] 04-24-2023 15:51-0500 Heart rate 98 /min Jignesh Dumont [facility] 04-24-2023 15:51-0500 Mean blood pressure 94 mm[Hg] Jignesh Tim [facility] 04-24-2023 15:51-0500 Respiratory rate 17 /min Jignesh Tim [facility] 04-24-2023 15:51-0500 SaO2% (BldA) [Mass fraction] 99 % Jignesh Tim [facility] 04-24-2023 15:51-0500 Systolic blood pressure 120 mm[Hg] Jignesh Tim [facility] 04-24-2023 15:00-0500 Diastolic blood pressure 72 mm[Hg] Jignesh Tim [facility] 04-24-2023 15:00-0500 Heart rate 85 /min Jignesh Tim [facility] 04-24-2023 15:00-0500 Mean blood pressure 87 mm[Hg] Jignesh Tim [facility] 04-24-2023 15:00-0500 Respiratory rate 16 /min Jignesh Tim [facility] 04-24-2023 15:00-0500 SaO2% (BldA) [Mass fraction] 96 % Jignesh Tim [facility] 04-24-2023 15:00-0500 Systolic blood pressure 117 mm[Hg] Jignesh Tim [facility] 04-24-2023 14:00-0500 Diastolic blood pressure 88 mm[Hg] Jignesh Tim [facility] 04-24-2023 14:00-0500 Heart rate 99 /min Jignesh Tim [facility] 04-24-2023 14:00-0500 Mean blood pressure 100 mm[Hg] Jignesh Tim [facility] 04-24-2023 14:00-0500 Respiratory rate 18 /min Jignesh Dumont [facility] 04-24-2023 14:00-0500 SaO2% (BldA) [Mass fraction] 97 % Jignesh Dumont [facility] 04-24-2023 14:00-0500 Systolic blood pressure 124 mm[Hg] Jignesh Tim [facility] 04-24-2023 13:29-0500 Body temperature 99.14 [degF] Jignesh Dumont [facility] 04-24-2023 13:29-0500 Heart rate 118 /min Jignesh Tim [facility] 04-03-2023 00:20-0400 Diastolic blood pressure 70 mm[Hg] DO Jennifer Duran Work Phone: [facility] 04-03-2023 00:20-0400 Heart rate 80 /min DO Jennifer Duran Work Phone: [facility] 04-03-2023 00:20-0400 SaO2% (BldA) [Mass fraction] 98 % DO Jennifer Duran Work Phone: [facility] 04-03-2023 00:20-0400 Systolic blood pressure 122 mm[Hg] DO Jennifer Duran Work Phone: [facility] 04-02-2023 21:48-0400 Diastolic blood pressure 75 mm[Hg] DO Jennifer Duran Work Phone: [facility] 04-02-2023 21:48-0400 Heart rate 90 /min DO Jennifer Duran Work Phone: [facility] 04-02-2023 21:48-0400 Respiratory rate 20 /min DO Jennifer Duran Work Phone: [facility] 04-02-2023 21:48-0400 SaO2% (BldA) [Mass fraction] 98 % DO Jennifer Girivelisse Work Phone: [facility] 04-02-2023 21:48-0400 Systolic blood pressure 109 mm[Hg] DO Jennifer Girvin Work Phone: [facility] 04-02-2023 20:23-0400 Body height 165.1 cm DO Jennifer Girvin Work Phone: [facility] 04-02-2023 20:23-0400 Body temperature 98.2 [degF] DO Jennifer Girvin Work Phone: [facility] 04-02-2023 20:23-0400 Body weight 81.64 kg DO Jennifer Girivelisse Work Phone: [facility] 03-29-2023 16:11-0400 Body temperature 97.8 [degF] DO Jennifer Girivelisse Work Phone: [facility] 03-29-2023 16:11-0400 Diastolic blood pressure 79 mm[Hg] DO Jennifer Girivelisse Work Phone: [facility] 03-29-2023 16:11-0400 Heart rate 104 /min DO Jennifer Girivelisse Work Phone: [facility] 03-29-2023 16:11-0400 Respiratory rate 16 /min DO Jennifer Girivelisse Work Phone: [facility] 03-29-2023 16:11-0400 SaO2% (BldA) [Mass fraction] 98 % DO Jennifer Girivelisse Work Phone: [facility] 03-29-2023 16:11-0400 Systolic blood pressure 123 mm[Hg] DO Jennifer Girvin Work Phone: [facility] 03-29-2023 06:35-0400 Body height 165.1 cm DO Jennifer Girvin Work Phone: [facility] 03-29-2023 06:35-0400 Body weight 87.5 kg DO Jennifer Girivelisse Work Phone: [phone] [place] [address] 03-29-2023 05:41-0400 Diastolic blood pressure 85 mm[Hg] DO Jennifer Girvin Work Phone: [facility] 03-29-2023 05:41-0400 Heart rate 110 /min DO Jennifer Girvin Work Phone: [facility] 03-29-2023 05:41-0400 Respiratory rate 18 /min DO Jennifer Girvin Work Phone: [facility] 03-29-2023 05:41-0400 SaO2% (BldA) [Mass fraction] 100 % DO Jennifer Girvin Work Phone: [facility] 03-29-2023 05:41-0400 Systolic blood pressure 160 mm[Hg] DO Jennifer Girvin Work Phone: [facility] 03-29-2023 01:39-0400 Body height 165.1 cm DO Jennifer Duran Work Phone: [facility] 03-29-2023 01:39-0400 Body temperature 97.2 [degF] DO Jennifer Duran Work Phone: [facility] 03-29-2023 01:39-0400 Body weight 87 kg DO Jennifer Girivelisse Work Phone: [facility] 02-06-2023 04:00-0400 Diastolic blood pressure 74 mm[Hg] DO Jennifer Girvin Work Phone: [facility] 02-06-2023 04:00-0400 Heart rate 79 /min DO Jennifer Girvin Work Phone: [facility] 02-06-2023 04:00-0400 Respiratory rate 15 /min DO Jennifer Girvin Work Phone: [facility] 02-06-2023 04:00-0400 SaO2% (BldA) [Mass fraction] 99 % DO Jennifer Girvin Work Phone: [facility] 02-06-2023 04:00-0400 Systolic blood pressure 119 mm[Hg] DO Jennifer Girvin Work Phone: [facility] 02-05-2023 23:41-0400 Body height 165.1 cm DO Jennifer Duran Work Phone: [facility] 02-05-2023 23:41-0400 Body temperature 98 [degF] DO Jennifer Duran Work Phone: [facility] 02-05-2023 23:41-0400 Body weight 81.64 kg DO Jennifer Duran Work Phone: [facility] 01-12-2023 14:40-0400 Body height 165.1 cm Jennifer Duran Other [facility] [employer] Other 01-12-2023 14:40-0400 Body mass index (BMI) [Ratio] 33.44 kg/m2 Jennifer Duran Other [employer] Other 01-12-2023 14:40-0400 Body temperature 99.5 [degF] Jennifer Duran Other [employer] Other 01-12-2023 14:40-0400 Body weight 91.17 kg Jennifer Duran Other [employer] Other 01-12-2023 14:40-0400 Diastolic blood pressure 78 mm[Hg] Jennifer Duran Other [employer] Other 01-12-2023 14:40-0400 Respiratory rate 18 /min Jennifer Duran Other [employer] Other 01-12-2023 14:40-0400 SaO2% (BldA) [Mass fraction] 97 % Jennifer Duran Other [employer] Other 01-12-2023 14:40-0400 Systolic blood pressure 110 mm[Hg] Jennifer Duran Other [employer] Other 10-11-2022 16:20-0400 Body height 165.1 cm Jennifer Duran Other [employer] Other 07-12-2022 16:20-0500 Body height 165.1 cm Jennifer Duran Other [employer] Other 07-12-2022 16:20-0500 Body mass index (BMI) [Ratio] 31.2 kg/m2 Jennifer Duran Other [employer] Other 07-12-2022 16:20-0500 Body temperature 97.2 [degF] Jennifer Duran Other [employer] Other 07-12-2022 16:20-0500 Body weight 85.05 kg Jennifer Duran Other [employer] Other 07-12-2022 16:20-0500 Diastolic blood pressure 74 mm[Hg] Jennifer Duran Other [employer] Other 07-12-2022 16:20-0500 Respiratory rate 18 /min Jennifer Duran Other [employer] Other 07-12-2022 16:20-0500 SaO2% (BldA) [Mass fraction] 99 % Jennifer Duran Other [employer] Other 07-12-2022 16:20-0500 Systolic blood pressure 106 mm[Hg] Jennifer Duran Other [employer] Other 04-28-2022 04:00-0500 Diastolic blood pressure 70 mm[Hg] DO Jennifer Duran Work Phone: [facility] 04-28-2022 04:00-0500 Heart rate 81 /min DO Jennifer Duran Work Phone: [facility] 04-28-2022 04:00-0500 SaO2% (BldA) [Mass fraction] 96 % DO Jennifer Duran Work Phone: [facility] 04-28-2022 04:00-0500 Systolic blood pressure 110 mm[Hg] DO Jennifer Duran Work Phone: [facility] 04-28-2022 03:56-0500 Body height 165.1 cm DO Jennifer Duran Work Phone: [facility] 04-28-2022 03:56-0500 Body weight 80 kg DO Jennifer Duran Work Phone: [facility] 04-28-2022 03:56-0500 Respiratory rate 18 /min DO Jennifer Duran Work Phone: [facility] 04-28-2022 00:13-0500 Body temperature 97.2 [degF] DO Jennifer Duran Work Phone: [facility] 04-12-2022 15:40-0400 Body height 165.1 cm Jennifer Duran Other [employer] Other 04-12-2022 15:40-0400 Body mass index (BMI) [Ratio] 30.37 kg/m2 Jennifer Duran Other [employer] Other 04-12-2022 15:40-0400 Body temperature 98.8 [degF] Jennifer Duran Other [employer] Other 04-12-2022 15:40-0400 Body weight 82.78 kg Jennifer Duran Other [employer] Other 04-12-2022 15:40-0400 Diastolic blood pressure 76 mm[Hg] Jennifer Duran Other [employer] Other 04-12-2022 15:40-0400 Respiratory rate 18 /min Jennifer Duran Other [employer] Other 04-12-2022 15:40-0400 SaO2% (BldA) [Mass fraction] 98 % Jennifer Duran Other [employer] Other 04-12-2022 15:40-0400 Systolic blood pressure 110 mm[Hg] Jennifer Duran Other [employer] Other 04-09-2022 13:32-0400 Body temperature 97.59 [degF] Chair [place] Work Phone: [facility] 04-09-2022 13:32-0400 Diastolic blood pressure 64 mm[Hg] Chair Lei Work Phone: [facility] 04-09-2022 13:32-0400 Heart rate 114 /min Chair [place] Work Phone: [facility] 04-09-2022 13:32-0400 Respiratory rate 18 /min Chair [place] Work Phone: [facility] 04-09-2022 13:32-0400 SaO2% (BldA) [Mass fraction] 97 % Chair [place] Work Phone: [facility] 04-09-2022 13:32-0400 Systolic blood pressure 116 mm[Hg] Chair [place] Work Phone: [facility] 03-26-2022 13:54-0400 Body temperature 97.9 [degF] Chair [place] Work Phone: [facility] 03-26-2022 13:54-0400 Diastolic blood pressure 75 mm[Hg] Chair [place] Work Phone: [facility] 03-26-2022 13:54-0400 Heart rate 82 /min Chair [place] Work Phone: [facility] 03-26-2022 13:54-0400 Respiratory rate 18 /min Chair Lei Work Phone: [facility] 03-26-2022 13:54-0400 SaO2% (BldA) [Mass fraction] 100 % Chair Lei Work Phone: [facility] 03-26-2022 13:54-0400 Systolic blood pressure 106 mm[Hg] Chair [place] Work Phone: [facility] 03-10-2022 13:54-0400 Body height 165.1 cm Madyson Ni APRN.[employer] Work Phone: [facility] 03-10-2022 13:54-0400 Body temperature 97.9 [degF] Madyson Ni APRN.[employer] Work Phone: [facility] 03-10-2022 13:54-0400 Body weight 83.37 kg Madyson Ni APRN.[employer] Work Phone: [facility] 03-10-2022 13:54-0400 Diastolic blood pressure 75 mm[Hg] Madyson Ni APRN.[employer] Work Phone: [facility] 03-10-2022 13:54-0400 Heart rate 95 /min Madyson Ni APRN.[employer] Work Phone: [facility] 03-10-2022 13:54-0400 Respiratory rate 16 /min Madyson Ni APRN.[employer] Work Phone: [facility] 03-10-2022 13:54-0400 SaO2% (BldA) [Mass fraction] 100 % Madyson Ni APRN.[employer] Work Phone: [facility] 03-10-2022 13:54-0400 Systolic blood pressure 130 mm[Hg] Madyson Ni APRN.[employer] Work Phone: [facility] 12-04-2021 12:49-0400 Blood Pressure Location Yamilka Zachkatia [facility] 12-04-2021 12:49-0400 Body temperature 98.42 [degF] Yamilka Orzech [facility] 12-04-2021 12:49-0400 Diastolic blood pressure 82 mm[Hg] Yamilka Orzech [facility] 12-04-2021 12:49-0400 Heart rate 110 /min Yamilka Orzech [facility] 12-04-2021 12:49-0400 SaO2% (BldA) [Mass fraction] 99 % Yamilka Orzech [facility] 12-04-2021 12:49-0400 Systolic blood pressure 126 mm[Hg] Yamilka Orkatia [facility] 10-16-2021 09:10-0400 Body height 165.1 cm Jennifer Duran Other [facility] [employer] Other 09-14-2021 19:31-0400 Diastolic blood pressure 82 mm[Hg] DO Jennifer Duran Work Phone: [facility] 09-14-2021 19:31-0400 Heart rate 87 /min DO Jennifer Duran Work Phone: [facility] 09-14-2021 19:31-0400 Respiratory rate 18 /min DO Jennifer Duran Work Phone: [facility] 09-14-2021 19:31-0400 SaO2% (BldA) [Mass fraction] 99 % DO Jennifer Duran Work Phone: [facility] 09-14-2021 19:31-0400 Systolic blood pressure 126 mm[Hg] DO Jennifer Duran Work Phone: [facility] 09-14-2021 14:45-0400 Body height 165.1 cm DO Jennifer Duran Work Phone: [facility] 09-14-2021 14:45-0400 Body mass index (BMI) [Ratio] 30.7 kg/m2 DO Jennifer Duran Work Phone: [facility] 09-14-2021 14:45-0400 Body temperature 98 [degF] DO Jennifer Duran Work Phone: [facility] 09-14-2021 14:45-0400 Body weight 83.91 kg DO Jennifer Duran Work Phone: [facility] 04-21-2021 16:20-0500 Body height 165.1 cm Jennifer Wilber Other [employer] Other 04-21-2021 16:20-0500 Body mass index (BMI) [Ratio] 32.28 kg/m2 Jennifer Duran Other [employer] Other 04-21-2021 16:20-0500 Body temperature 98.3 [degF] Jennifer Enochivelisse Other [employer] Other 04-21-2021 16:20-0500 Body weight 88 kg Jennifer Kendallivelisse Other [employer] Other 04-21-2021 16:20-0500 Diastolic blood pressure 82 mm[Hg] Jennifer Duran Other [employer] Other 04-21-2021 16:20-0500 SaO2% (BldA) [Mass fraction] 98 % Jennifer Duran Other [employer] Other 04-21-2021 16:20-0500 Systolic blood pressure 124 mm[Hg] Jennifer Duran Other [employer] Other Encounters Encounter Date Encounter Type Care Provider Facility Start: 08-10-2024 End: 08-10-2024 Emergency department patient visit Jignesh Dumont [facility] Start: 08-09-2024 End: 08-09-2024 Orders Only Shanae Lacy Marlys BACON Work Phone: [facility] Gynecology Oncology, A Department of [facility] Start: 08-05-2024 End: 08-05-2024 Emergency department patient visit Dmiitri Vuong [facility] Start: 08-05-2024 End: 08-05-2024 Emergency department patient visit Dimitri Vuong [facility] Start: 08-02-2024 End: 08-02-2024 Emergency department patient visit Neha Leachcandie [facility] Start: 08-01-2024 End: 08-01-2024 Emergency department patient visit NO PCP NO PCP [facility] Start: 08-01-2024 End: 08-01-2024 Emergency department patient visit Konstantin Jain MD Work Phone: [facility] Start: 07-29-2024 End: 07-29-2024 Emergency department patient visit ROSE HARDY [facility] Comment on above: Chronic pelvic pain in female (Primary Dx); Right lower quadrant abdominal pain Start: 07-27-2024 End: 07-28-2024 Emergency department patient visit NO PCP NO PCP [facility] Start: 07-21-2024 End: 07-21-2024 Emergency department patient visit NO PCP NO PCP [facility] Start: 07-14-2024 End: 07-14-2024 Emergency department patient visit Donya Romano MD Work Phone: [facility] Start: 07-13-2024 End: 07-13-2024 Emergency department patient visit NO PCP NO PCP [facility] Start: 07-11-2024 End: 07-12-2024 Emergency department patient visit Shalonda Bacon MD Work Phone: [facility] Comment on above: Generalized abdomina l pain (Primary Dx) Start: 07-10-2024 Emergency department patient visit None Provider Facility:[facility] Start: 07-10-2024 Emergency department patient visit None Provider Facility:[facility] Start: 07-07-2024 End: 07-07-2024 Emergency department patient visit NO PCP NO PCP [facility] Start: 06-27-2024 End: 06-28-2024 Emergency department patient visit Jordyn Mireles [facility] Facility[facility] Start: 06-27-2024 End: 06-27-2024 Emergency department patient visit Randee Richardson MD Work Phone: [facility] Comment on above: Abdominal pain, righ t lower quadrant (Primary Dx) Start: 06-24-2024 End: 06-25-2024 Emergency department patient visit Ritesh Heath [facility] Start: 06-11-2024 Emergency department patient visit None Provider Facility:[facility] Start: 06-11-2024 End: 06-11-2024 Telephone encounter Kendra BACON Work Phone: [facility] Gynecology Oncology, A Department of [facility] Comment on above: Appointment Start: 06-11-2024 End: 06-11-2024 ambulatory ROBBIE ARRIAZA [facility] Start: 06-10-2024 End: 06-10-2024 ambulatory NO PCP NO PCP [facility] Start: 06-09-2024 End: 06-10-2024 Emergency department patient visit NO PCP NO PCP [facility] Start: 06-09-2024 End: 06-09-2024 Telephone encounter Isabell Lentz [facility] Taj varghese Comment on above: abnormal CT Start: 06-08-2024 Emergency department patient visit None Provider Facility:[facility] Start: 06-05-2024 End: 06-05-2024 Emergency department patient visit NO PCP NO PCP [facility] Start: 05-27-2024 End: 05-28-2024 Emergency department patient visit ROSE HARDY [facility] Start: 04-06-2024 End: 04-06-2024 Evaluation and management of inpatient NO PCP NO PCP [facility] Start: 04-05-2024 End: 04-05-2024 Emergency department patient visit NO PCP NO PCP [facility] Start: 04-03-2024 End: 04-03-2024 Evaluation and management of inpatient NO PCP NO PCP [facility] Start: 03-30-2024 Patient encounter status Isabell Varghese [facility] Start: 03-28-2024 End: 03-28-2024 ambulatory [facility] Start: 03-28-2024 Encounter for other preprocedural examination [facility] Start: 03-23-2024 End: 03-23-2024 ambulatory [facility] Work Phone: Start: 03-23-2024 End: 03-23-2024 Patient encounter procedure [facility] [place] Work Phone: Start: 03-07-2024 End: 03-07-2024 Emergency department patient visit NO PCP NO PCP [facility] Start: 03-03-2024 End: 03-03-2024 Emergency department patient visit Davi Rivas DO Work Phone: [facility] Start: 02-24-2024 End: 02-24-2024 Emergency department patient visit Ashley Delcid MD [facility] Phone: [facility] Start: 02-16-2024 End: 02-16-2024 Emergency department patient visit Jennifer Moore MD Work Phone: [facility] Start: 02-13-2024 End: 02-13-2024 Emergency department patient visit Ritesh Heath [facility] Start: 01-27-2024 End: 01-28-2024 Emergency department patient visit GUSTAVO DAVIES [facility] Start: 01-27-2024 End: 01-27-2024 Emergency department patient visit NO PCP NO PCP [facility] Start: 01-22-2024 End: 01-22-2024 Emergency department patient visit Eren Camejo Work Phone: [facility] Comment on above: Cyst of left ovary ( Primary Dx) Start: 01-19-2024 End: 01-19-2024 ambulatory DO Jennifer Duran Work Phone: [facility] Work Phone: Start: 01-19-2024 End: 01-19-2024 Patient encounter procedure DO Jennifer Duran Work Phone: [facility] Work Phone: Start: 12-07-2023 ambulatory DO Jennifer roberts Work Phone: [facility] Work Phone: Start: 12-07-2023 Non-patient / Non-visit DO Ponce Duran Work Phone: [facility] [place] Work Phone: Start: 11-25-2023 End: 11-25-2023 Patient encounter procedure DO Jennifer Duran Work Phone: [facility] [place] Work Phone: Start: 11-25-2023 End: 11-25-2023 ambulatory DO Jennifer Duarn Work Phone: [facility] Work Phone: Start: 11-23-2023 End: 11-23-2023 ambulatory [facility] Start: 11-09-2023 End: 11-09-2023 ambulatory [facility] Start: 11-08-2023 End: 11-08-2023 Emergency department patient visit DO Jennifer Duran Work Phone: [facility]-Emergency Room Work Phone: Start: 11-08-2023 End: 11-08-2023 Emergency department patient visit Eren Camejo DO Work Phone: [facility] ED Comment on above: Toothache (Primary D x) Start: 10-25-2023 End: 10-26-2023 Emergency department patient visit TARIK Sinclair [facility] Start: 10-25-2023 End: 10-26-2023 Emergency department patient visit TARKI D [facility] Start: 10-25-2023 End: 10-25-2023 Emergency department patient visit NO PCP NO PCP [facility] Start: 10-25-2023 End: 10-26-2023 Emergency department patient visit TARIK D [facility] Start: 10-19-2023 End: 10-19-2023 ambulatory TARUN CRISTOFER Not Available Start: 10-18-2023 End: 10-18-2023 ambulatory [facility] Work Phone: Start: 10-18-2023 End: 10-18-2023 Patient encounter procedure [facility] [place] Work Phone: Start: 09-29-2023 End: 09-30-2023 Emergency department patient visit Ritesh Heath [facility] Start: 09-26-2023 End: 09-26-2023 Emergency department patient visit Konstantin Penny [facility] Start: 09-06-2023 End: 09-06-2023 Emergency department patient visit DESTINI COVARRUBIAS [facility] Start: 07-31-2023 End: 07-31-2023 Emergency department patient visit Jignesh Dumont [facility] Start: 07-28-2023 End: 07-28-2023 ambulatory PHYSICIAN NO [facility] Work Phone: Start: 07-28-2023 End: 07-28-2023 Patient encounter procedure PHYSICIAN NO [facility] [place] Work Phone: Start: 07-19-2023 End: 07-19-2023 ambulatory Jennifer Duarn Other [employer] Other Start: 07-19-2023 Telephone encounter Jennifer Duran [facility] [place] Start: 06-22-2023 End: 06-23-2023 Emergency department patient visit EVGENY SEN MD Facility:[facility] Start: 06-07-2023 End: 06-07-2023 ambulatory Jennifer Duran Other [employer] Other Start: 06-07-2023 Telephone encounter Jennifer Duran [facility] [place] Start: 05-16-2023 End: 05-16-2023 ambulatory Jennifer Duran Other [employer] Other Start: 05-16-2023 Telephone encounter Jennifer Duran [facility] [place] Start: 04-30-2023 End: 04-30-2023 Emergency department patient visit DO Jennifer Duran Work Phone: [facility]Emergency [facility] Work Phone: Start: 04-24-2023 End: 04-24-2023 Emergency department patient visit Jignesh Dumont [facility] Start: 04-18-2023 End: 04-18-2023 ambulatory Jennifer Duran Other [employer] Other Start: 04-18-2023 Telephone encounter Jennifer Duran [facility] [place] Start: 04-11-2023 End: 04-11-2023 ambulatory Jennifer Duran Other [employer] Other Start: 04-11-2023 Telephone encounter Jennifer Duran [facility] Start: 04-04-2023 End: 04-04-2023 ambulatory Jennifer Duran Other [employer] Other Start: 04-04-2023 Telephone encounter Jennifer Duran [facility] Start: 04-02-2023 End: 04-03-2023 Emergency department patient visit DO Jenniefr Duran Work Phone: [facility] Work Phone: Start: 04-01-2023 End: 04-01-2023 ambulatory Jennifer Duran Other [employer] Other Start: 04-01-2023 Telephone encounter Jennifer Kendallivelisse [facility] Start: 03-29-2023 Telephone encounter Jennifer Duran [facility] Start: 03-29-2023 End: 03-29-2023 Evaluation and management of inpatient DO Jennifer Duran Work Phone: [facility] [place] [facility] Work Phone: Start: 03-29-2023 End: 03-29-2023 observation encounter DO Jennifer Duran Work Phone: [facility] Work Phone: Start: 03-29-2023 End: 03-29-2023 ambulatory Jennifer Duran [place] Other Start: 03-13-2023 End: 03-13-2023 ambulatory DO Jennifer Duran Work Phone: [facility] Work Phone: Start: 03-13-2023 End: 03-13-2023 Patient encounter procedure DO Jennifer Duran Work Phone: [facility]-Flu Vaccine Start: 03-02-2023 End: 03-02-2023 ambulatory Jennifer Duran Other [employer] Other Start: 03-02-2023 Telephone encounter Jennifer Duran [facility] [place] Start: 02-05-2023 End: 02-06-2023 Emergency department patient visit DO Jennifer Kendallivelisse Work Phone: [facility]-Emergency Room Work Phone: Start: 01-12-2023 End: 01-12-2023 ambulatory Jennifer Duran Other [employer] Other Start: 01-12-2023 Office outpatient vi sit 15 minutes Jennifer Duran [facility] [place] Start: 12-09-2022 End: 12-09-2022 ambulatory Jennifer Duran Other [employer] Other Start: 12-09-2022 Telephone encounter Jennifer Duran [facility] Start: 10-11-2022 End: 10-11-2022 ambulatory Jennifer Duran Other [employer] Other Start: 10-11-2022 Telephone encounter Jennifer Duran [facility] Start: 09-22-2022 End: 09-22-2022 ambulatory Jennifer Duran Other [employer] Other Start: 09-22-2022 Telephone encounter Jennifer Duran [facility] Start: 07-28-2022 End: 07-28-2022 ambulatory BELKIS SANDOVAL Facility:[facility] Start: 07-12-2022 End: 07-12-2022 ambulatory Jennifer Duran Other [employer] Other Start: 07-12-2022 Office outpatient vi sit 15 minutes Jennifer Duran [facility] [place] Start: 07-12-2022 Telephone encounter Jennifer Duran [facility] [place] Start: 06-02-2022 End: 06-02-2022 ambulatory Jennifer Duran Other [employer] Other Start: 06-02-2022 Telephone encounter Jennifer Duran [facility] Start: 05-04-2022 End: 05-04-2022 ambulatory Jennifer Duran Other [employer] Other Start: 05-04-2022 Telephone encounter Jennifer Duran [facility] Start: 04-30-2022 Telephone encounter Madyson arechiga APRN.[employer] Work Phone: Hematology/Oncology Comment on above: Lab Orders Start: 04-28-2022 Evaluation and management of inpatient DO Jennifer Duran Work Phone: [facility] [place] Start: 04-28-2022 observation encounter DO Jennifer Duran Work Phone: [facility] Work Phone: Start: 04-12-2022 End: 04-12-2022 ambulatory Jennifer Duran Other [employer] Other Start: 04-12-2022 Office outpatient vi sit 15 minutes Jennifer Wilber [facility] Start: 04-12-2022 Telephone encounter Jennifer Duran [facility] Start: 04-09-2022 End: 04-10-2022 ambulatory Stephenie Suh 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 [employer] Comment on above: Art Therapy Iron deficiency anem ia due to chronic blood loss (Primary Dx); Malabsorption of iron; Cyst of left ovary Start: 03-26-2022 End: 03-27-2022 ambulatory MADYSON NI Facility:[facility] Start: 03-26-2022 End: 03-26-2022 ambulatory Chair Anton España Work Phone: Hematology/Oncology Comment on above: Iron deficiency anem ia due to chronic blood loss (Primary Dx); Malabsorption of iron; Cyst of left ovary Start: 03-15-2022 Telephone encounter Sharon HAMMERW H ematology/Oncology Comment on above: Social Work Services Start: 03-10-2022 End: 03-11-2022 ambulatory Madyson Ni ORTHODONTIST [employer] OWNER[employer] Work Phone: Hematology/Oncology Comment on above: Iron deficiency anem ia due to chronic blood loss (Primary Dx); Malabsorption of iron Start: 03-10-2022 End: 03-10-2022 Patient encounter procedure Madyson Ni ORTHODONTIST [employer] OWNER[employer] Work Phone: [facility] Start: 02-18-2022 Telephone encounter Madyson arechiga ORTHODONTIST [employer] OW[employer] Work Phone: Hematology/Oncology Comment on above: Lab Orders Start: 02-16-2022 End: 02-16-2022 ambulatory Jennifer Duran Other [employer] Other Start: 02-16-2022 Telephone encounter Jennifer Duran [facility] [place] Start: 02-12-2022 End: 02-12-2022 Patient encounter procedure DO Jennifer Duran Work Phone: [facility]-Lab [place] Start: 01-07-2022 End: 01-07-2022 ambulatory Jennifer Duran Other [employer] Other Start: 01-07-2022 Telephone encounter Jennifer Duran [facility] [place] Start: 12-04-2021 End: 12-04-2021 Patient encounter procedure Yamilka [facility] Start: 10-29-2021 End: 10-29-2021 ambulatory Jennifer Duran Other [employer] Other Start: 10-29-2021 Telephone encounter Jennifer Duran [facility] Start: 10-16-2021 End: 10-16-2021 ambulatory Jennifer Duran Other [employer] Other Start: 10-16-2021 Office outpatient vi sit 15 minutes Jennifer Duran [facility] Start: 09-21-2021 End: 09-21-2021 ambulatory Jennifer Duran Other [employer] Other Start: 09-21-2021 Telephone encounter Jennifer Duran [facility] Start: 09-14-2021 End: 09-14-2021 Emergency department patient visit DO Jennifer Duran Work Phone: [facility]-Emergency Room Start: 08-18-2021 End: 08-18-2021 ambulatory Jennifer Duran Other [employer] Other Start: 08-18-2021 Telephone encounter Jennifer Duran [facility] Start: 08-11-2021 End: 08-11-2021 ambulatory Jennifer Duran Other [employer] Other Start: 08-11-2021 Telephone encounter Jennifer Duran [facility] [place] Start: 08-03-2021 End: 08-03-2021 ambulatory Jennifer Duran Other [employer] Other Start: 08-03-2021 Telephone encounter Jennifer Duran [facility] Start: 07-04-2021 End: 07-04-2021 Patient encounter procedure DO Jennifer Duran Work Phone: [facility] [place] Start: 06-04-2021 End: 06-04-2021 ambulatory Jennifer Duran Other [employer] Other Start: 06-04-2021 Telephone encounter Jennifer Duran [facility] Start: 05-18-2021 End: 05-18-2021 ambulatory Jennifer Duran Other [employer] Other Start: 05-18-2021 Telephone encounter Jennifer Duran [facility] Start: 04-21-2021 End: 04-21-2021 ambulatory Jennifer Duran Other [employer] Other Start: 04-21-2021 Encounter for genera l adult medical examination without abnormal findings Jennifer Duran [facility] Start: 04-21-2021 Periodic preventive med est patient 18-39 yrs Jennifer Duran [facility] Procedures Date Procedure Procedure Detail Performing [...] DO Jennifer Duran Work Phone: Cholecystectomy Ritesh Lynne varghese Hysterectomy Ritesh Ivana Plan of Treatment Date Care Activity Detail Author Start: 08-01-2025 Adult BMI Screening Adult BMI Screen ing [facility] Start: 08-01-2025 Tobacco Screening Tobacco Screening [facility] Start: 06-10-2025 Adult BMI Screening Adult BMI Screen ing [facility] Start: 06-09-2025 Adult BMI Screening Adult BMI Screen ing [facility] Start: 06-09-2025 Tobacco Screening Tobacco Screening [facility] Start: 09-12-2024 End: 09-12-2024 Patient encounter procedure 09/12/2024 2:30 PM EDT Office Visit [facility] Gynecology Oncology, A Department of [address] [id number] Adiel Aparicio MD [address] [facility], [address] [place] [id number] [facility] Gynecology Oncology, A Department of [facility] Start: 02-12-2024 COVID-19 VACCINE ( season) COVID-19 VACCINE ( season) [facility] Start: 02-12-2024 COVID-19 Vaccine ( season) COVID-19 Vaccine ( season) [facility] Start: 02-12-2024 Influenza vaccination A [facility] Start: 01-12-2024 Influenza vaccination Flu vaccine (# 1) [facility] [employer] [facility] Start: 12-07-2023 Patient referral [facility] Work Phone: Start: 03-30-2023 Comprehensive metabo lic 2000 panel - Serum or Plasma [facility] Start: 03-30-2023 [facility] Start: 03-29-2023 [facility] Start: 03-29-2023 Referral to pastry supervisor [facility] Start: 03-29-2023 Hospital admission [facility] Start: 03-29-2023 [facility] Start: 03-29-2023 Computed tomography of abdomen and pelvis with contrast CT abdomen pelvis w con [facility] Start: 03-29-2023 CT Abdomen and Pelvi s W contrast IV [facility] Start: 03-29-2023 Transvaginal echography US transvagi nal [facility] Start: 03-29-2023 US Pelvis transvaginal [facility] Start: 03-29-2023 Pelvic echography US pelvic complete [facility] Start: 03-29-2023 US Pelvis [facility] Start: 02-11-2023 COVID-19 Vaccine ( season) COVID-19 [facility]ine ( season[facility] Start: 02-06-2023 Pelvic echography US pelvic complete [facility] Start: 02-06-2023 US Pelvis [facility] Start: 02-06-2023 Transvaginal echography US transvagi nal [facility] Start: 02-06-2023 US Pelvis transvaginal [facility] Start: 02-05-2023 Computed tomography of abdomen and pelvis with contrast CT abdomen pelvis w con [facility] Start: 02-05-2023 CT Abdomen and Pelvi s W contrast IV [facility] Start: 05-05-2022 End: 07-05-2022 CBC W Auto Differential panel - Blood CBC + DIFF Lab Routine Iron deficiency anemia due to chronic blood loss Malabsorption of iron Expected: 05/05/2022, Expires: 07/05/2022 [facility] Work Phone: Comment on above: Expected: 05/05/2022 , Expires: 07/05/2022 Start: 05-03-2022 End: 07-03-2022 Comprehensive metabolic 2000 panel - Serum or Plasma COMP METABOLIC PANEL Lab Routine Iron deficiency anemia due to chronic blood loss Expected: 05/03/2022, Expires: 07/03/2022 [facility] Work Phone: Comment on above: Expected: 05/03/2022 , Expires: 07/03/2022 Start: 04-28-2022 Pelvic echography US pelvic complete [facility] Start: 04-28-2022 US Pelvis [facility] Start: 04-28-2022 CT Abdomen and Pelvi s WO contrast [facility] Start: 04-28-2022 CT of abdomen and pe lvis without contrast CT abdomen pelvis wo con [facility] Start: 04-28-2022 Transvaginal echography US transvagi nal [facility] Start: 04-28-2022 US Pelvis transvaginal [facility] Start: 02-23-2022 End: 02-20-2023 CBC W Auto Differential panel - Blood CBC + DIFF Lab Routine Iron deficiency anemia due to chronic blood loss Expected: 02/23/2022 (Approximate), Expires: 02/20/2023 [facility] Work Phone: Comment on above: Expected: 02/23/2022 (Approximate), Expires: 02/20/2023 Start: 02-23-2022 End: 02-20-2023 Cobalamin (Vitamin B12) [Mass/volume] in Serum or Plasma VITAMIN B12 BLOOD Lab Routine Iron deficiency anemia due to chronic blood loss Expected: 02/23/2022 (Approximate), Expires: 02/20/2023 [facility] Work Phone: Comment on above: Expected: 02/23/2022 (Approximate), Expires: 02/20/2023 Start: 02-23-2022 End: 02-20-2023 Comprehensive metabolic 2000 panel - Serum or Plasma COMP METABOLIC PANEL Lab Routine Iron deficiency anemia due to chronic blood loss Expected: 02/23/2022 (Approximate), Expires: 02/20/2023 [facility] Work Phone: Comment on above: Expected: 02/23/2022 (Approximate), Expires: 02/20/2023 Start: 02-23-2022 End: 02-20-2023 Ferritin [Mass/volume] in Serum or Plasma FERRITIN BLD Lab Routine Iron deficiency anemia due to chronic blood loss Expected: 02/23/2022 (Approximate), Expires: 02/20/2023 [facility] Work Phone: Comment on above: Expected: 02/23/2022 (Approximate), Expires: 02/20/2023 Start: 02-23-2022 End: 02-20-2023 Folate [Mass/volume] in Serum or Plasma FOLATE SERUM Lab Routine Iron deficiency anemia due to chronic blood loss Expected: 02/23/2022 (Approximate), Expires: 02/20/2023 [facility] Work Phone: Comment on above: Expected: 02/23/2022 (Approximate), Expires: 02/20/2023 Start: 02-23-2022 End: 02-20-2023 Iron and Iron binding capacity panel - Serum or Plasma IRON + TIBC Lab Routine Iron deficiency anemia due to chronic blood loss Expected: 02/23/2022 (Approximate), Expires: 02/20/2023 [facility] Work Phone: Comment on above: Expected: 02/23/2022 (Approximate), Expires: 02/20/2023 Start: 02-11-2022 Influenza vaccination INFLUENZA (#1) [facility] Start: 06-13-2021 DEPRESSION ASSESSMENT DEPRESSION ASS ESSMENT [facility] Start: 11-30-2020 COVID-19 VACCINE (3 - Booster for Moderna series) COVID-19 VACCINE (3 - Booster for Moderna series) [facility] Start: 08-27-2020 COVID-19 VACCINE (3 - Booster for Moderna series) COVID-19 VACCINE (3 - Booster for Moderna series) [facility] Start: 2017 HPV TESTING HPV TESTING [facility] Start: 2017 Screening for malign ant neoplasm of cervix [facility] Start: 01-11-2008 PAP TESTING PAP TESTING [facility] Start: 01-11-2008 Screening for malign ant neoplasm of cervix [facility] Start: 2006 DTaP,Tdap and Td Vaccines (1 - Tdap) DTaP,Tdap and Td Vaccines (1 - Tdap) [facility] Start: 2006 DTaP/Tdap/Td vaccine (1 - Tdap) DTaP/Tdap/Td vaccine (1 - Tdap) [facility] Start: 2006 Hepatitis B vaccination HEP B VACCINE (1 of 3 - 19+ 3-dose series) [facility] Start: 2006 Hepatitis B vaccine (1 of 3 - 19+ 3-dose series) Hepatitis B vaccine (1 of 3 - 19+ 3-dose series) [facility] Start: 2006 Third diphtheria, tetanus and acellular pertussis (DTaP) vaccination TDAP (ADULT) [facility] Start: 2006 Urine microalbumin profile DTAP,TDAP,TD (1 - Tdap) [facility] Start: 2005 Adult BMI Follow Up Plan Adult BMI Follow Up Plan [facility] Start: 2005 HEPATITIS C SCREENING HEPATITIS C SC REENING [facility] Start: 2005 Hepatitis C screening Hepatitis C sc reen [facility] Start: 2005 HIV SCREENING HIV SCREENING [facility] Start: 2002 HIV screening [facility] Start: 01-11-2000 Varicella vaccine (1 of 2 - 13+ 2-dose series) Varicella vaccine (1 of 2 - 13+ 2-dose series) [facility] Start: 1999 Adult depression screening assessment DEPRESSION SCREENING [facility] Start: 1999 Depression Screen Depression Screen [facility] Start: 01-11-1988 Varicella vaccine (1 of 2 - 2-dose childhood series) Varicella vaccine (1 of 2 - 2-dose childhood series) [facility] Start: 1987 HEPATITIS B (1 of 3 - 3-dose series) HEPATITIS B (1 of 3 - 3-dose series) [facility] Start: 1987 Hepatitis B vaccine (1 of 3 - 3-dose series) Hepatitis B vaccine (1 of 3 - 3-dose series) [facility] Start: 1987 Hepatitis C screening HEPATITI S C VIRUS SCREENING [facility] Start: 1987 Tetanus vaccination TETANUS [facility] Sinuses WO contrast [facility] Patient Education [facility] Work Phone: Patient referral [facility] Work Phone: End: 02-16-2024 Standard ECG ECG ECG STAT One Time for 1 Occurrences starting 02/16/2024 until 02/16/2024 [facility] Comment on above: One Time for 1 Occur rences starting 02/16/2024 until 02/16/2024 [facility] Immunizations Immunization Date Immunization Notes Care Provider Iraj cevallos 06-09-2023 influenza, injectable, quadrivalent, contains preservative [facility] 06-09-2023 influenza virus vaccine, unspecified formulation Jennifer Moore MD Work Phone: [facility] 03-13-2023 influenza, injectable, quadrivalent, preservative free Jennifer Duran Other [facility] 03-31-2021 influenza, seasonal, injectable Jennifer Duran Other [facility] 07-02-2020 COVID-19 Vaccine Moderna - Documentation Purposes Only Jennifer Duran Other [facility] 06-04-2020 COVID-19 Vaccine Moderna - Documentation Purposes Only Jennifer Duran Other [facility] 12-10-2008 measles, mumps and rubella virus vaccine Yamilka [facility] NEGATED: Highlighted row has not occurred!03-23-2019 influenza, seasonal, injectable Patient Objection Jennifer Duran Other [facility] Payers Date Payer Category Payer Self-pay [id number] 2020 [facility] [employer] [facility] - Other [facility] [id number] 2018 Unknown [id number]. 1.13.159. 2.7.3.387193.315 1987 Unknown [id number] 2.16.840.1.907123.3.579. 2.593 1987 Unknown [id number] 2.16.840.1.699082.3.579. 2.182 1987 Unknown [id number] 2.16.840.1.900177.3.579. 2.1259 1987 Unknown [id number] 2.16.840.1.009869.3.579. 2.1285 1987 Unknown [id number] 2.16.840.1.541639.3.579. 2.1285 1987 Unknown [id number] 2.16.840.1.523862.3.579. 2.1285 1987 Unknown [id number] 2.16.840.1.029477.3.579. 2.1285 1987 Unknown [id number] 2.16.840.1.905108.3.579. 2.1285 1987 Unknown [id number] 2.16840.1.734377.3.579. 2.1285 1987 Unknown [id number] 2.16840.1.387731.3.579. 2.1285 1987 Unknown [id number] 2.16840.1.928091.3.579. 2.1285 1987 Unknown [id number] 2.16840.1.439977.3.579. 2.1285 1987 Unknown [id number] 2.16.840.1.842847.3.579. 2.1285 1987 Unknown [id number] 2.16840.1.038285.3.579. 2. 1987 Unknown [id number] 2.16.840.1.171440.3.579. 2. 1987 Unknown [id number] 2.16840.1.205143.3.579. 2. 1987 Unknown [id number] 2.16840.1.719078.3.579. 2 1987 Unknown [id number] 2.16840.1.529905.3.579. 2. 1987 Unknown [id number] 2.16840.1.650517.3.579. 2.727 1987 Unknown [id number] 2.16.840.1.315693.3.579. 2.727 1987 Unknown [id number] 2.16.840.1.780281.3.579. 2.727 1987 Unknown [id number] 2.16.840.1.933326.3.579. 2.718 1987 Unknown [id number] 2.16.840.1.379005.3.579. 2.718 1987 Unknown [id number] 2.16.840.1.447571.3.579. 2.718 1987 Unknown [id number] 2.16.840.1.238031.3.579. 2.173 1987 Unknown [id number] 2.16840.1.574119.3.579. 2.173 1987 Unknown [id number] 2.16840.1.389616.3.579. 2.174 1987 Unknown [id number] 2.16840.1.003004.3.579. 2.174 1987 Unknown [id number] 2.16.840.1.580163.3.579. 2.174 1987 Unknown [id number] 2.16.840.1.242173.3.579. 2.174 1987 Unknown [id number] 2.16.840.1.040864.3.579. 2.983 1987 Unknown [id number] 2.16.840.1.916959.3.579. 2.983 1987 Unknown [id number] 2.16.840.1.118617.3.579. 2.983 1987 Unknown [id number] 2.16.840.1.084948.3.579. 2.983 1987 Unknown [id number] 2.16.840.1.842284.3.579. 2.983 1987 Unknown [id number] 2.16.840.1.061105.3.579. 2.1285 1987 Unknown [id number] 2.16.840.1.501519.3.579. 2.1285 1987 Unknown [id number] 2.16840.1.897156.3.579. 2.1285 1987 Unknown [id number] 2.16840.1.251936.3.579. 2.1285 1987 Unknown [id number] 2.840.1.101123.3.579. 2.1285 1987 Unknown [id number] 2.840.1.433172.3.579. 2.1285 1987 Unknown [id number] 2.0.1.102839.3.579. 2.1285 1987 Unknown [id number] 2.840.1.245211.3.579. 2.1285 1987 Unknown [id number] 2.840.1.656590.3.579. 2.1285 1987 Unknown [id number] 2.840.1.048539.3.579. 2.1285 1987 Unknown [id number] 2840.1.139638.3.579. 2.1285 1987 Unknown [id number] 2.840.1.974936.3.579. 2.1285 1987 Unknown [id number] .840.1.543902.3.579. 2.1285 1987 Unknown [id number] 2.16840.1.239216.3.579. 2.1285 1987 Unknown [id number] 2.840.1.046505.3.579. 2.1285 1987 Unknown [id number] .840.1.105713.3.579. 2.727 1987 Unknown [id number] 2.16.840.1.386949.3.579. 2.727 1987 Unknown [id number] 2.16.840.1.067583.3.579. 2.727 1987 Unknown [id number] 2.16.840.1.237841.3.579. 2.727 1987 Unknown [id number] 2.16.840.1.796288.3.579. 2.727 1959 Unknown [id number] Unknown [id number] Unknown [id number] Unknown [id number] Unknown [id number] 2.16.840.1.345720.3.579. 2.531 Unknown [id number] 2.840.1.170723.3.579. 2.531 Unknown [id number] 2.16840.1.206914.3.579. 2.531 Unknown [id number] 2.16840.1.326218.3.579. 2.531 Unknown [id number] 2.16840.1.794610.3.579. 2.531 Social History Date Type Detail Facility Start: 09-14-2021 End: 05-25-2023 Tobacco smoking status INIS Never smoked tobacco (finding) [facility] Start: 1985 Sex Assigned At Female F [facility] Tobacco smoking status Never [facility] Start: 05-30-2023 End: 08-01-2024 Sex Assigned At Female [facility] [employer] Other Start: 04-05-2018 End: 05-25-2023 Tobacco use and exposure Smokeless tobacco non-user [facility] Start: 10-27-2020 End: 08-01-2024 Alcohol intake Current drinker of alcohol (finding) [facility] Start: 04-05-2018 History SDOH Alcohol Comment socially [facility] Start: 1985 Sex Assigned At Not on file [facility] Start: 02-06-2022 End: 04-09-2022 Exposure to SARS-CoV-2 (event) Not sure [facility] History of tobacco use Passive smoker [facility] Start: 09-05-2023 End: 01-22-2024 Alcohol intake Not Asked [facility] Start: 05-30-2023 End: 08-01-2024 History of Social function [facility] How often to you hav e a drink containing alcohol? Monthly or less [facility] How many standard drinks containing alcohol do you have on a typical day? 1 or 2 [facility] How often do you hav e 6 or more drinks on 1 occasion? Less than monthly [facility] Start: 05-30-2023 End: 07-14-2024 Alcohol Comment social [facility] Tobacco smoking stat [facility] Tobacco smoking consumption [facility] Start: 04-03-2024 Alcohol Comment monthly [facility] Start: 01-14-2015 End: 02-16-2024 Sex Female (finding) [facility] Start: 06-27-2024 End: 07-29-2024 Alcoholic beverage intake Ex-drinker (finding) [employer] [facility] Comment on above: Denies Tobacco smoking status No Smokin g Status Entered [facility] Goals Date Patient Goal Desired Activity /State Functional Status Date Assessment Result Facility 08-10-2024 Functional Status N/A [facility] 08-05-2024 Functional Status N/A [facility] 08-05-2024 Functional Status N/A [facility] 02-20-2025 Functional Status N/A [facility] 06-27-2024 Functional Status N/A [facility] 06-24-2024 Functional Status N/A [facility] 02-13-2024 Functional Status N/A [facility] 09-29-2023 Functional Status N/A [facility] 09-26-2023 Functional Status N/A [facility] 07-31-2023 Functional Status N/A [facility] 04-24-2023 Functional Status N/A [facility] 03-29-2023 Functional status Patient at [facility] Work Phone: 12-04-2021 Functional Status N/A [facility] Mental Status Date Assessment Result Facility 03-29-2023 Cognitive function Cognitive Sta tus Patient at [facility] Work Phone: Clinical Notes 03-19-2019 to 08-11-2024 Note Date & Type Note Facility 08-11-2024 Hospital Discharg e instructions Patient Education 08/10/2024 22:33:12 Chronic Pain, Adult Chronic Pain, Adult Chronic pain is a type of pain that lasts or keeps coming back for at least 3 6 months. You may have headaches, pain in the abdomen, or pain in other areas of the body. Chronic pain may be related to an illness, injury, or a health condition. Sometimes, the cause of chronic pain is not known. Chronic pain can make it hard for you to do daily activities. If it is not treated, chronic pain can lead to anxiety and depression. Treatment depends on the cause of your pain and how severe it is. You may need to work with a pain specialist to come up with a treatment plan. Many people benefit from two or more types of treatment to control their pain. Follow these instructions at home: Treatment plan Follow your treatment plan as told by your health care provider. This may include: Gentle, regular exercise. Eating a healthy diet that includes foods such as vegetables, fruits, fish, and lean meats. Mental health therapy (cognitive or behavioral therapy) that changes the way you think or act in response to the pain. This may help improve how you feel. Doing physical therapy exercises to improve movement and strength. Meditation, yoga, acupuncture, or massage therapy. Using the oils from plants in your environment or on your skin (aromatherapy). Other treatments may include: Bszk-yib-zylohss or prescription medicines. Color, light, or sound therapy. Local electrical stimulation. The electrical pulses help to relieve pain by temporarily stopping the nerve impulses that cause you to feel pain. Injections. These deliver numbing or pain-relieving medicines into the spine or the area of pain. Medicines Take hnct-jok-ylzkktz and prescription medicines only as told by your health care provider. Ask your health care provider if the medicine prescribed to you: ?Requires you to avoid driving or using machinery. ?Can cause constipation. You may need to take these actions to prevent or treat constipation: ?Drink enough fluid to keep your urine pale yellow. ?Take nuyi-vuu-thzvxcq or prescription medicines. ?Eat foods that are high in fiber, such as beans, whole grains, and fresh fruits and vegetables. ?Limit foods that are high in fat and processed sugars, such as fried or sweet foods. Lifestyle Ask your health care provider whether you should keep a pain diary. Your health care provider will tell you what information to write in the diary. This may include: ?When you have pain. ?What the pain feels like. ?How medicines and other behaviors or treatments help to reduce the pain. Consider talking with a mental health care provider about how to help manage chronic pain. Consider joining a chronic pain support group. Try to control or lower your stress levels. Talk with your health care provider about ways to do this. General instructions Learn as much as you can about how to manage your chronic pain. Ask your health care provider if an intensive pain rehabilitation program or a chronic pain specialist would be helpful. Check your pain level as told by your health care provider. Ask your health care provider if you should use a pain scale. Contact a health care provider if: Your pain is not controlled with treatment. You have new pain. You have side effects from pain medicine. You feel weak or you have trouble doing your normal activities. You have trouble sleeping or you develop confusion. You lose feeling or have numbness in your body. You lose control of your bowels or bladder. Get help right away if: Your pain suddenly gets much worse. You develop chest pain. You have trouble breathing or shortness of breath. You faint, or another person sees you faint. These symptoms may be an emergency. Get help right away. Call 911. Do not wait to see if the symptoms will go away. Do not drive yourself to the hospital. Also, get help right away if: You have thoughts about hurting yourself or others. Take one of these steps if you feel like you may hurt yourself or others, or have thoughts about taking your own life: Go to your nearest emergency room. Call 911. Call the National Suicide Prevention Lifeline at or 442. This is open 24 hours a day. Text the Crisis Text Line at 905335. This information is not intended to replace advice given to you by your health care provider. Make sure you discuss any questions you have with your health care provider. Document Revised: 01/19/2023 Document Reviewed: 12/22/2022 [employer] Patient Education 2023 [employer]. Follow Up Care 08/10/2024 19:36:46 With:Rose Royal Address: [facility] [address] [address] Business (1) When:08/13/2024 With:XXXX NONE Address: [place] When:08/13/2024 Comments:Call to schedule a follow-up appointment with your surgeon for further management of care. Return to the ED with any new or worsening symptoms. [facility] 08-10-2024 Evaluation + Plan note Extrac flo from: Title:ED Note Author:Tarik Campos PA-C te:08/10/24 Chronic abdominal pain (R10. 9: Unspecified abdominal pain) Endometrioma (N80.129: Deep endometriosis of ovary, unspecified ovary) Other chronic pain (G89.29: Other chronic pain) Orders: ketorolac, 30 mg = 1 mL, Injection, IntraMuscular, Once, Stop date 08/10/24 20:48:00 EST, STAT, Start date 08/10/24 20:48:00 EST, 08/10/24 20:48:00 EST ondansetron, 4 mg = 1 tab(s), Tab-Dis, Oral, Once, Stop date 08/10/24 20:46:00 EST, STAT, Start date 08/10/24 20:46:00 EST, 08/10/24 20:46:00 EST Basic Metabolic Panel CBC w/ Auto Diff eGFR Hepatic Function Panel Lipase Level UA with Cult Rflx [facility] 02-23-2025 Hospital Discharge instructions Patient Education 08/05/2024 19:29:44 Abdominal Pain, Adult, Sade-ww-Awqw Abdominal Pain, Adult Many things can cause belly (abdominal) pain. In most cases, belly pain is not a serious problem and can be watched and treated at home. But in some cases, it can be serious. Your doctor will try to find the cause of your belly pain. Follow these instructions at home: Medicines Take nbdj-xae-cvwdjum and prescription medicines only as told by [...] provider. Document Revised: 03/16/2023 Document Reviewed: 03/16/2023 Else[employer] Patient Education 2023 [employer]. Follow Up Care 08/05/2024 18:01:40 With:Pain Clinic: [facility] [phone] Address:Unknown When:08/08/2024 19:18:57 Comments:Call for diagnosis based follow up With:Savannah Petersen Address: [address] [address]- Business (1) When:08/08/2024 19:18:52 Comments:Call Dr for diagnosis based follow up [facility] [phone] NoteED Patient Education Note Gastroenterology Abdominal Pain, Adult Many things can cause belly (abdominal) pain. In most cases, belly pain is not a serious problem and can be watched and treated at home. But in some cases, it can be serious. Your doctor will try to find the cause of your belly pain. Follow these instructions at home: Medicines ??? Take dngl-srd-fpupdqf and prescription medicines only as told by [...] provider. Document Revised: 03/16/2023 Document Reviewed: 03/16/2023 [employer] Patient Education ? 2023 [employer].[facility] 08-05-2024 Hospital Discharge instructions Patient Education 08/05/2024 11:45:04 Chronic Pain, Adult Chronic Pain, Adult Chronic pain is a type of pain that lasts or keeps coming back for at least 3 6 months. You may have headaches, pain in the abdomen, or pain in other areas of the body. Chronic pain may be related dennis illness, injury, or a health condition. Sometimes, the cause of chronic pain is not known. Chronic pain can make it hard for you to do daily activities. If it is not treated, chronic pain can lead to anxiety and depression. Treatment depends on the cause of your pain and how severe it is. You may need to work with a pain specialist to come up with a treatment plan. Many people benefit from two or more types of treatment to control their pain. Follow these instructions at home: Treatment plan Follow your treatment plan as told by your health care provider. This may include: Gentle, regular exercise. Eating a healthy diet that includes foods such as vegetables, fruits, fish, and lean meats. Mental health therapy (cognitive or behavioral therapy) that changes the way you think or act in response to the pain. This may help improve how you feel. Doing physical therapy exercises to improve movement and strength. Meditation, yoga, acupuncture, or massage therapy. Using the oils from plants in your environment or on your skin (aromatherapy). Other treatments may include: Aeaj-uvb-nzfxyfm or prescription medicines. Color, light, or sound therapy. Local electrical stimulation. The electrical pulses help to relieve pain by temporarily stopping the nerve impulses that cause you to feel pain. Injections. These deliver numbing or pain-relieving medicines into the spine or the area of pain. Medicines Take sfcl-cuw-dbdsaat and prescription medicines only as told by your health care provider. Ask your health care provider if the medicine prescribed to you: ?Requires you to avoid driving or using machinery. ?Can cause constipation. You may need to take these actions to prevent or treat constipation: ?Drink enough fluid to keep your urine pale yellow. ?Take qoia-hju-tereoih or prescription medicines. ?Eat foods that are high in fiber, such as beans, whole grains, and fresh fruits and vegetables. ?Limit foods that are high in fat and processed sugars, such as fried or sweet foods. Lifestyle Ask your health care provider whether you should keep a pain diary. Your health care provider will tell you what information to write in the diary. This may include: ?When you have pain. ?What the pain feels like. ?How medicines and other behaviors or treatments help to reduce the pain. Consider talking with a mental health care provider about how to help manage chronic pain. Consider joining a chronic pain support group. Try to control or lower your stress levels. Talk with your health care provider about ways to do this. General instructions Learn as much as you can about how to manage your chronic pain. Ask your health care provider if anintensive pain rehabilitation program or a chronic pain specialist would be helpful. Check your pain level as told by your health care provider. Ask your health care provider if you should use a pain scale. Contact a health care provider if: Your pain is not controlled with treatment. You have new pain. You have side effects from pain medicine. You feel weak or you have trouble doing your normal activities. You have trouble sleeping or you develop confusion. You lose feeling or have numbness in your body. You lose control of your bowels or bladder. Get help right away if: Your pain suddenly gets much worse. You develop chest pain. You have trouble breathing or shortness of breath. You faint, or another person sees you faint. These symptoms may be an emergency. Get help right away. Call 911. Do not wait to see if the symptoms will go away. Do not drive yourself to the hospital. Also, get help right away if: You have thoughts about hurting yourself or others. Take one of these steps if you feel like you may hurt yourself or others, or have thoughts about taking your own life: Go to your nearest emergency room. Call 911. Call the National Suicide Prevention Lifeline at or 147. This is open 24 hours a day. Text the Crisis Text Line at 244520. This information is not intended to replace advice given to you by your health care provider. Make sure you discuss any questions you have with your health care provider. Document Revised: 01/19/2023 Document Reviewed: 12/22/2022 [employer] Patient Education 2023 [employer]. Follow Up Care 08/05/2024 11:07:17 With:XXXX NONE Address: [place] When:08/08/2024 11:25:55 Comments:Follow-up with your OBGYN surgeon [facility] 02-23-2025 NoteED Patient Education Note Mental and Behavioral Health Chronic Pain, Adult Chronic pain is a type of pain that lasts or keeps coming back for at least 3?6 months. You may have headaches, pain in the abdomen, or pain in other areas of the body. Chronic pain may be related dennis illness, injury, or a health condition. Sometimes, the cause of chronic pain is not known. Chronic pain can make it hard for you to do daily activities. If it is not treated, chronic pain can lead to anxiety and depression. Treatment depends on the cause of your pain and how severe it is. You may need to work with a pain specialist to come up with a treatment plan. Many people benefit from two or more types of treatment to control their pain. Follow these instructions at home: Treatment plan Follow your treatment plan as told by your health care provider. This may include: ??? Gentle, regular exercise. ??? Eating a healthy diet that includes foods such as vegetables, fruits, fish, and lean meats. ??? Mental health therapy (cognitive or behavioral therapy) that changes the way you think or act in response to the pain. This may help improve how you feel. ??? Doing physical therapy exercises to improve movement and strength. ??? Meditation, yoga, acupuncture, or massage therapy. ??? Using the oils from plants in your environment or on your skin (aromatherapy). Other treatments may include: ??? Emen-yoz-sxqjxll or prescription medicines. ??? Color, light, or sound therapy. ??? Local electrical stimulation. The electrical pulses help to relieve pain by temporarily stopping the nerve impulses that cause you to feel pain. ??? Injections. These deliver numbing or pain-relieving medicines into the spine or the area of pain. Medicines ??? Take bryn-acb-jybuduz and prescription medicines only as told by your health care provider. ??? Ask your health care provider if the medicine prescribed to you: ? Requires you to avoid driving or using machinery. ? Can cause constipation. You may need to take these actions to prevent or treat constipation: ? Drink enough fluid to keep your urine pale yellow. ? Take vclh-vyk-ewoghno or prescription medicines. ? Eat foods that are high in fiber, such as beans, whole grains, and fresh fruits and vegetables. ? Limit foods that are high in fat and processed sugars, such as fried or sweet foods. Lifestyle ??? Ask your health care provider whether you should keep a pain diary. Your health care provider will tell you what information to write in the diary. This may include: ? When you have pain. ? What the pain feels like. ? How medicines and other behaviors or treatments help to reduce the pain. ??? Consider talking with a mental health care provider about how to help manage chronic pain. ??? Consider joining a chronic pain support group. ??? Try to control or lower your stress levels. Talk with your health care provider about ways to do this. General instructions ??? Learn as much as you can about how to manage your chronic pain. Ask your health care provider if an intensive pain rehabilitation program or a chronic pain specialist would be helpful. ??? Check your pain level as told by your health care provider. Ask your health care provider if you should use a pain scale. Contact a health care provider if: ??? Your pain is not controlled with treatment. ??? You have new pain. ??? You have side effects from pain medicine. ??? You feel weak or you have trouble doing your normal activities. ??? You have trouble sleeping or you develop confusion. ??? You lose feeling or have numbness in your body. ??? You lose control of your bowels or bladder. Get help right away if: ??? Your pain suddenly gets much worse. ??? You develop chest pain. ??? You have trouble breathing or shortness of breath. ??? You faint, or another person sees you faint. These symptoms may be an emergency. Get help right away. Call 911. ??? Do not wait to see if the symptoms will go away. ??? Do not drive yourself to the hospital. Also, get help right away if: ??? You have thoughts about hurting yourself or others. Take one of these steps if you feel like you may hurt yourself or others, or have thoughts about taking your own life: ??? Go to your nearest emergency room. ??? Call 911. ??? Call the National Suicide Prevention Lifeline at or 203. This is open 24 hours aday. ??? Text the Crisis Text Line at 318294. This information is not intended to replace advice given to you by your health care provider. Make sure you discuss any questions you have with your health care provider. Document Revised: 01/19/2023 Document Reviewed: 12/22/2022 [employer] Patient Education ? 2023 [employer].[facility] 08-02-2024 Hospital Discharge instructions Patient Education 08/02/2024 19:06:33 Pelvic Mass, Female Pelvic Mass, Female A pelvic mass is an abnormal growth in the pelvis. The pelvis is the area between the hip bones. Itincludes the bladder, rectum, uterus, and ovaries. What are the causes? Common causes of pelvic masses include: Ovarian cysts. These are fluid-filled sacs that form on an ovary. Tumors. These may be cancerous (malignant) or noncancerous (benign). Noncancerous tumors in the uterus are called uterine fibroids. Ectopic . This is when the fertilized egg attaches (implants) outside the uterus. Infections. What are the signs or symptoms? Many times, there are no symptoms, and the mass may be found during a routine exam. If there are symptoms, they may include: Abdominal pain. Nausea and vomiting. How is this diagnosed? Your health care provider may recommend that you have tests to diagnose the cause of the pelvic mass. The following tests may be done if a pelvic mass is found: Physical exam. Blood tests. Imaging tests: ?X-rays. ?Ultrasound. ?CT scan. ?MRI. A surgery to look inside your abdomen with cameras (laparoscopy). A biopsy that is performed with a needle or during laparoscopy or surgery. In some cases, what seemed like a pelvic mass may actually be something else, such as a mass in oneof the organs that is near the pelvis, an infection called an abscess, or scar tissue that formed after a surgery. A physical exam and tests may be done once, or they may be done regularly for a period of time. Exams and tests that are done regularly will help monitor whether the mass or tissue change is growing and becoming a concern. How is this treated? Treatment is not always needed for a pelvic mass. Your health care provider may recommend careful monitoring (watchful waiting) and regular tests and exams. Treatment will depend on the cause of the mass. Follow these instructions at home: What you need to do at home will depend on the cause of the mass. Follow the instructions that yourhealth care provider gives to you. In general: Take vsli-kro-vfukzuj and prescription medicines only as told by your health care provider. If you were prescribed an antibiotic medicine, take it as told by your health care provider. Do notstop taking the antibiotic even if you start to feel better. Return to your normal activities as told by your health care provider. Ask your health care provider what activities are safe for you. Keep all follow-up visits. This is important. Contact a health care provider if: You develop new symptoms. You have a fever or chills. You cannot tolerate prescribed medicines. Get help right away if: You have blood in your stools (feces) or urine. You have an abnormal or increased amount of vaginal bleeding. You develop sudden or worsening pain that is not relieved by medicine. You develop severe bloating in your abdomen or your pelvis. You cannot pass urine or stools. Summary A pelvic mass is an abnormal growth in the pelvis. The pelvis is the area between your hip bones. It includes the bladder, rectum, uterus, and ovaries. Pelvic masses include ovarian cysts, tumors, ectopic , or infections. Your health care provider may recommend that you have tests to diagnose the cause of the pelvic mass. Treatment will depend on the cause of the mass. This information is not intended to replace advice given to you by your health care provider. Make sure you discuss any questions you have with your health care provider. Document Revised: 10/08/2021 Document Reviewed: 10/08/2021 [employer] Patient Education 2023 [employer] 08/02/2024 19:06:33 Abdominal Pain, Adult Abdominal Pain, Adult Pain [...] Follow these instructions at home: Medicines Take bylc-gij-xsdzmea and prescription medicines only as told by [...] provider. Document Revised: 03/16/2023 Document Reviewed: 03/16/2023 [employer] Patient Education 2023 [employer]. Follow Up Care 08/02/2024 14:42:18 With:Make sure to follow-up with your [employer] at [facility]. Return to the emergency room if your pain gets worse or any new symptoms. Address:Unknown When:08/05/2024 18:40:00 [facility] 02-20-2025 NoteED Patient Education Note Gastroenterology Abdominal Pain, [...] these instructions at home: Medicines ??? Take otwq-xuc-gttwbyn and prescription medicines only as told by [...] provider. Document Revised: 03/16/2023 Document Reviewed: 03/16/2023 [employer] Patient Education ? 2023 [employer]. Obstetrics and Gynecology Pelvic Mass, Female A pelvic mass is an abnormal growth in the pelvis. The pelvis is the area between the hip bones. Itincludes the bladder, rectum, uterus, and ovaries. What are the causes? Common causes of pelvic masses include: ??? Ovarian cysts. These are fluid-filled sacs that form on an ovary. ??? Tumors. These may be cancerous (malignant) or noncancerous (benign). Noncancerous tumors in theuterus are called uterine fibroids. ??? Ectopic . This is when the fertilized egg attaches (implants) outside the uterus. ??? Infections. What are the signs or symptoms? Many times, there are no symptoms, and the mass may be found during a routine exam. If there are symptoms, they may include: ??? Abdominal pain. ??? Nausea and vomiting. How is this diagnosed? Your health care provider may recommend that you have tests to diagnose the cause of the pelvic mass. The following tests may be done if a pelvic mass is found: ??? Physical exam. ??? Blood tests. ??? Imaging tests: ? X-rays. ? Ultrasound. ? CT scan. ? MRI. ??? A surgery to look inside your abdomen with cameras (laparoscopy). ??? A biopsy that is performed with a needle or during laparoscopy or surgery. In some cases, what seemed like a pelvic mass may actually be something else, such as a mass in oneof the organs that is near the pelvis, an infection called an abscess, or scar tissue that formed after a surgery. A physical exam and tests may be done once, or they may be done regularly for a period of time. Exams and tests that are done regularly will help monitor whether the mass or tissue change is growing and becoming a concern. How is this treated? Treatment is not always needed for a pelvic mass. Your health care provider may recommend careful monitoring (watchful waiting) and regular tests and exams. Treatment will depend on the cause of the mass. Follow these instructions at home: What you need to do at home will depend on the cause of the mass. Follow the instructions that yourhealth care provider gives to you. In general: ??? Take naaj-yfi-whcnltj and prescription medicines only as told by your health care provider. ??? If you were prescribed an antibiotic medicine, take it as told by your health care provider. Donot stop taking the antibiotic even if you start to feel better. ??? Return to your normal activities as told by your health care provider. Ask your health care provider what activities are safe for you. ??? Keep all follow-up visits. This is important. Contact a health care provider if: ??? You develop new symptoms. ??? You have a fever or chills. ??? You cannot tolerate prescribed medicines. (more content not included)... [facility]02-20-2025 Evaluation + Plan noteExtracted from: Title:ED Note Author:Neha Hannah M.D. te:08/02/24 1. Abdominal pain (R10.9: Un specified abdominal pain) 2. Pelvic mass (R19.00: Intra-abdominal and pelvic swelling, mass and lump, unspecified site) Orders: HYDROmorphone, 1 mg = 1 mL, Injection, IV Push, Once, Stop date 08/02/24 16:31:00 EST, STAT, Start date 08/02/24 16:31:00 EST, 08/02/24 16:31:00 EST HYDROmorphone, 1 mg = 1 mL, Injection, IV Push, Once, Stop date 08/02/24 18:31:00 EST, STAT, Start date 08/02/24 18:31:00 EST, 08/02/24 18:31:00 EST ondansetron, 4 mg = 2 mL, Injection, IV Push, Once, Stop date 08/02/24 16:31:00 EST, STAT, Start date 08/02/24 16:31:00 EST, 08/02/24 16:31:00 EST Basic Metabolic Panel Beta hCG Qual CBC w/ Auto Diff CT Abdomen/Pelvis w/ Contrast eGFR Hepatic Function Panel Lipase Level UA with Cult Rflx [facility] [id number] Emergency department Note* Kandi Cruz RN - 08/01/2024 7:53 PM EST Pt in no distress at discharge. Discharge instructions given to and explained to pt. Pt verbalized understanding and denies needs and questions at this time. Pt ambulated with steady gait at discharge. [facility]02-19-2025 Emergency department Note* Kandi Cruz RN - 08/01/2024 7:53 PM EST Pt in no distress at discharge. Discharge instructions given to and explained to pt. Pt verbalized understanding and denies needs and questions at this time. Pt ambulated with steady gait at discharge. * Kandi Cruz RN - 08/01/2024 7:22 PM EST Pt sts her step son brought her to ER and did not drive herself * Konstantin Jain MD - 08/01/2024 7:20 PM EST Emergency Department Report [facility] Service Date:.08/01/24 PCP: No primary care provider on file. Chief Complaint: Chief Complaint Patient presents with Abdominal Pain Pt presents to the ER with complaints of abd pain that began 2 days ago HPI Antonia Noyola is a 39 y.o. female presents to the ED today due to chronic abdominal pain and pelvicpain. Patient has been seen multiple ER hospitals over the last 3 weeks. (2-26 [facility], 2-24 [facility], [facility], 2[facility]1 [facility], [facility], 1-29 [facility], 1-[facility], 1-15 [facility], 1-28 [facility]). She is currently on Hydrocodone and Toradol. Patient states she is only here for pain control. She states a relative drove her to ER but they are not in room. Patient states the only medications that work are Fentanyl and Dilaudid. She states she is allergic to Morphine. She is suppose to have another surgery with [employer] but is waiting for opening. She states she was referred to chronic pain management but they have not seen her yet. She states [employer] tells her to go to ER whenever she has a flare. Patient has history of ovarian remnant syndrome Patient came into ER alone but states she has relative outside Review of Systems: Review of Systems Constitutional: Negative. HENT: Negative. Eyes: Negative. Respiratory: Negative. Cardiovascular: Negative. Gastrointestinal: Positive for abdominal pain. Negative for abdominal distention, anal bleeding, blood in stool, constipation, diarrhea, nausea, rectal pain and vomiting. Endocrine: Negative. Genitourinary: Positive for pelvic pain. Negative for decreased urine volume, difficulty urinating,dyspareunia, dysuria, enuresis, flank pain, frequency, genital sores, hematuria, menstrual problem,urgency, vaginal bleeding, vaginal discharge and vaginal pain. Musculoskeletal: Negative. Neurological: Negative. All other systems reviewed and are negative. Past Medical History: Past Medical History: Diagnosis Date Anxiety Endometriosis Past Surgical History: Past Surgical History: Procedure Laterality Date HYSTERECTOMY Allergies: Allergies Allergen Reactions Morphine Hives and Itching Other Reaction(s): Other, Other: See Comments, Unknown, Unknown Reaction Other Reaction(s): Other: See Comments Spasms Spasms Other Reaction(s): Other: See Comments Spasms Spasms Compazine [Prochlorperazine] Medications: Patient's Medications New Prescriptions No medications on file Previous Medications ALPRAZOLAM 0.25 MG TABLET Take 1 tablet by mouth. ATENOLOL 25 MG TABLET Take 1 tablet by mouth daily. CITALOPRAM 20 MG TABLET Take 1 tablet by mouth daily. CLINDAMYCIN 300 MG CAPSULE FLUCONAZOLE 150 MG TABLET TAKE 1 TABLET BY MOUTH ONCE HYDROCODONE-ACETAMINOPHEN 5-325 MG TABLET Take 1 tablet by mouth every 6 hours as needed for SeverePain or Moderate Pain for up to 3 days. KETOROLAC 10 MG TABLET Take 1 tablet by mouth Every 6 hours as needed. MULTIPLE VITAMINS-IRON (QC DAILY MULTIVITAMINS/IRON) TABLET Take 1 tablet by mouth daily. NABUMETONE 750 MG TABLET take 1 tablet by mouth every 12 hours as needed for pain NALOXONE 4 MG/0.1ML 1 spray by Nasal route once for 1 dose. [place] into the nose as directed. Call 911. If no response in 2 minutes use a new nasal spray in other nostril. Repeat until help arrives. ONDANSETRON 4 MG TAB DISPERSIBLE TABLET Place 1 tablet under tongue. OXYCODONE-ACETAMINOPHEN 5-325 MG PER TABLET Take 1 tablet by mouth every 6 hours as needed for Moderate Pain for up to 7 days. TRAMADOL 50 MG TABLET TAKE 1 TABLET BY MOUTH EVERY 6 HOURS NEEDED FOR PAIN FOR UP TO 3 DAYS. TAKE LOWEST DOSE POSSIBLE Modified Medications No medications on file Discontinued Medications No medications on file Family History: History reviewed. No pertinent family [...] and Sexual Activity Alcohol use: Yes Comment: social Drug use: Never Sexual activity: Not on file Other Topics Concern Not on file Social History Narrative Not on file Social Drivers of Health Financial Resource Strain: Not on file Food Insecurity: No Food Insecurity (07/27/2024) Received from [facility] Hunger Screening Within the past 12 [...] Connections: Unknown (03/22/2023) Received from [facility] Family and Community Support Help with Day-to-Day Activities: Not on file Lonely or Isolated: Not on file Personal Safety: Unknown (03/22/2023) Received from [facility] Abuse Screen Unsafe at Home or Work/School: Not on file Feels Threatened by Someone?: Not on file Does Anyone Keep You from Contacting Others or Doint Things Outside the Home?: Not on file Physical Sign of Abuse Present: Not on file Housing Stability: Unknown (03/22/2023) Received from [facility] Housing Stability Current Living Arrangements: Not on file Potentially Unsafe Housing Conditions: Not on file Physical Exam: Physical Exam Vitals and nursing note reviewed. Constitutional: Appearance: She is not ill-appearing. HENT: Right Ear: External ear normal. Left Ear: External ear normal. Nose: Nose normal. Mouth/Throat: Mouth: Mucous membranes are moist. Cardiovascular: Rate and Rhythm: Normal rate and regular rhythm. Heart sounds: No murmur heard. No gallop. Pulmonary: Effort: Pulmonary effort is normal. No respiratory distress. Breath sounds: Normal breath sounds. No stridor. No wheezing, rhonchi or rales. Chest: Chest wall: No tenderness. Abdominal: General: Abdomen is flat. There is no distension. Palpations: Abdomen is soft. There is no mass. Tenderness: There is abdominal tenderness. There is no right CVA tenderness, left CVA tenderness, guarding or rebound. Hernia: No hernia is present. Neurological: General: No focal deficit present. Mental Status: She is alert and oriented to person, place, and time. Vital Signs During ED Visit Patient Vitals for the past 24 hrs: BP Temp Temp src Pulse Resp SpO2 08/01/24 1922 144/83 99.4 F (37.4 C) Temporal 115 16 100 % Orders/Results: No orders of the defined types were placed in this encounter. Results for orders placed or performed during [...] MG/DL SODIUM 141 137 - 145 MMOL/L Potassium 3.9 3.5 - 5.1 MMOL/L CHLORIDE 110 [...] 107. URINALYSIS, MACRO Result Value Ref Range Color, Urine YELLOW YELLOW Appearance, Urine CLEAR CLEAR Specific [place], Urine 1.010 1.010 - 1.025 PH URINE 6.0 5.0 - 7.0 Urine Protein NEGATIVE NEGATIVE mg/dl Glucose, Urine NEGATIVE NEGATIVE mg/dl Ketones, Urine NEGATIVE NEGATIVE mg/dl BILIRUBIN, URINE NEGATIVE NEGATIVE BLOOD, URINE DIPSTICK NEGATIVE NEGATIVE Nitrites, Urine NEGATIVE NEGATIVE Urobilinogen, Urine 0.2 0.2 - 1.0 E.U./dL Leukocyte esterase, Urine MODERATE (A) NEGATIVE HCG QUALITATIVE, URINE Result Value Ref Range HCG, QUALITATIVE, URINE NEGATIVE URINE MICROSCOPIC Result Value Ref Range WBC, Urine 1 TO 5 NEGATIVE /HPF RBC, Urine NEGATIVE NEGATIVE /HPF Epithelial Cells UA 5 TO 10 /HPF Mucus NEGATIVE NEGATIVE Bacteria, Urine TRACE (A) NEGATIVE CRYSTALS, URINE NONE NONE CASTS, URINE NONE NONE /LPF COMMENT, URINE CULTURE CRITERIA NOT MET, NO CULTURE PERFORMED. Radiographic Imaging No orders to display Procedures: Procedures ED Summary/MDM Chronic pelvic pain flare related to ovarian remnant syndrome. Patient has multiple trips to ER forpain control. Patient only wants pain control tonight and no further work up. Patient is alert and oriented capable of making informed decision about her healthcare. I told patient that I was concerned about the possible addiction potential of the medications that she is getting from multiple ER visits. I told her I felt that she needs to get into chronic pain management as soon as possible. I told her that I could give her a pain medication orally in ER if I know she has a ride. She initially said she had a ride and will bring relative inside and then later said they would not come into ER. 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 She just wanted to leave. I told her I can give her nonnarcotic medication and she refused. I encourage her to try to talk with [employer] about a plan go forward to control her pain. I told her at anytime she can comeback and we would treat her pain if I know she has somebody that is available to drive her home. Clinical Impression: 1. Encounter for chronic pain management No follow-ups on file. New Prescriptions No medications on file Discontinued Medications No medications on file An After Visit Summary was printed and given to the patient with above information. . . Konstantin Jain MD 08/01/241952 [facility] Discharge instructions* Discharge Instructions* Konstantin Jain MD - 08/01/2024 7:43 PM EST Call your [employer] and Chronic pain management tomorrow for follow up. * Attachments The following attachments cannot be sent through Care Everywhere. * Chronic Pain (Jordanian) documented in this [facility]02-19-2025 Emergency department Note* Kandi Cruz RN - 08/01/2024 7:22 PM EST Pt sts her step son brought her to ER and did not drive herself [facility]02-19-2025 Physician Emergency department Note* Konstantin Jain MD - 08/01/2024 7:20 PM EST Emergency Department Report [facility] Service Date:.08/01/24 PCP: No primary care provider on file. Chief Complaint: Chief Complaint Patient presents with Abdominal Pain Pt presents to the ER with complaints of abd pain that began 2 days ago HPI Antonia Noyola is a 39 y.o. female presents to the ED today due to chronic abdominal pain and pelvicpain. Patient has been seen multiple ER hospitals over the last 3 weeks. (2-26 [facility], 2-24 [facility], [facility], [facility], [facility], 1-29 [facility], [facility], 1-15 [facility], 1-28 [facility]). She is currently on Hydrocodone and Toradol. Patient states she is only here for pain control. She states a relative drove her to ER but they are not in room. Patient states the only medications that work are Fentanyl and Dilaudid. She states she is allergic to Morphine. She is suppose to have another surgery with [employer] but is waiting for opening. She states she was referred to chronic pain management but they have not seen her yet. She states [employer] tells her to go to ER whenever she has a flare. Patient has history of ovarian remnant syndrome Patient came into ER alone but states she has relative outside Review of Systems: Review of Systems Constitutional: Negative. HENT: Negative. Eyes: Negative. Respiratory: Negative. Cardiovascular: Negative. Gastrointestinal: Positive for abdominal pain. Negative for abdominal distention, anal bleeding, blood in stool, constipation, diarrhea, nausea, rectal pain and vomiting. Endocrine: Negative. Genitourinary: Positive for pelvic pain. Negative for decreased urine volume, difficulty urinating,dyspareunia, dysuria, enuresis, flank pain, frequency, genital sores, hematuria, menstrual problem,urgency, vaginal bleeding, vaginal discharge and vaginal pain. Musculoskeletal: Negative. Neurological: Negative. All other systems reviewed and are negative. Past Medical History: Past Medical History: Diagnosis Date Anxiety Endometriosis Past Surgical History: Past Surgical History: Procedure Laterality Date HYSTERECTOMY Allergies: Allergies Allergen Reactions Morphine Hives and Itching Other Reaction(s): Other, Other: See Comments, Unknown, Unknown Reaction Other Reaction(s): Other: See Comments Spasms Spasms Other Reaction(s): Other: See Comments Spasms Spasms Compazine [Prochlorperazine] Medications: Patient's Medications New Prescriptions No medications on file Previous Medications ALPRAZOLAM 0.25 MG TABLET Take 1 tablet by mouth. ATENOLOL 25 MG TABLET Take 1 tablet by mouth daily. CITALOPRAM 20 MG TABLET Take 1 tablet by mouth daily. CLINDAMYCIN 300 MG CAPSULE FLUCONAZOLE 150 MG TABLET TAKE 1 TABLET BY MOUTH ONCE HYDROCODONE-ACETAMINOPHEN 5-325 MG TABLET Take 1 tablet by mouth every 6 hours as needed for SeverePain or Moderate Pain for up to 3 days. KETOROLAC 10 MG TABLET Take 1 tablet by mouth Every 6 hours as needed. MULTIPLE VITAMINS-IRON (QC DAILY MULTIVITAMINS/IRON) TABLET Take 1 tablet by mouth daily. NABUMETONE 750 MG TABLET take 1 tablet by mouth every 12 hours as needed for pain NALOXONE 4 MG/0.1ML 1 spray by Nasal route once for 1 dose. [place] into the nose as directed. Call 911. If no response in 2 minutes use a new nasal spray in other nostril. Repeat until help arrives. ONDANSETRON 4 MG TAB DISPERSIBLE TABLET Place 1 tablet under tongue. OXYCODONE-ACETAMINOPHEN 5-325 MG PER TABLET Take 1 tablet by mouth every 6 hours as needed for Moderate Pain for up to 7 days. TRAMADOL 50 MG TABLET TAKE 1 TABLET BY MOUTH EVERY 6 HOURS NEEDED FOR PAIN FOR UP TO 3 DAYS. TAKE LOWEST DOSE POSSIBLE Modified Medications No medications on file Discontinued Medications No medications on file Family History: History reviewed. No pertinent family [...] and Sexual Activity Alcohol use: Yes Comment: social Drug use: Never Sexual activity: Not on file Other Topics Concern Not on file Social History Narrative Not on file Social Drivers of Health Financial Resource Strain: Not on file Food Insecurity: No Food Insecurity (07/27/2024) Received from [facility] Hunger Screening Within the past 12 [...] Connections: Unknown (03/22/2023) Received from [facility] Family and Community Support Help with Day-to-Day Activities: Not on file Lonely or Isolated: Not on file Personal Safety: Unknown (03/22/2023) Received from [facility] Abuse Screen Unsafe at Home or Work/School: Not on file Feels Threatened by Someone?: Not on file Does Anyone Keep You from Contacting Others or Doint Things Outside the Home?: Not on file Physical Sign of Abuse Present: Not on file Housing Stability: Unknown (03/22/2023) Received from [facility] Housing Stability Current Living Arrangements: Not on file Potentially Unsafe Housing Conditions: Not on file Physical Exam: Physical Exam Vitals and nursing note reviewed. Constitutional: Appearance: She is not ill-appearing. HENT: Right Ear: External ear normal. Left Ear: External ear normal. Nose: Nose normal. Mouth/Throat: Mouth: Mucous membranes are moist. Cardiovascular: Rate and Rhythm: Normal rate and regular rhythm. Heart sounds: No murmur heard. No gallop. Pulmonary: Effort: Pulmonary effort is normal. No respiratory distress. Breath sounds: Normal breath sounds. No stridor. No wheezing, rhonchi or rales. Chest: Chest wall: No tenderness. Abdominal: General: Abdomen is flat. There is no distension. Palpations: Abdomen is soft. There is no mass. Tenderness: There is abdominal tenderness. There is no right CVA tenderness, left CVA tenderness, guarding or rebound. Hernia: No hernia is present. Neurological: General: No focal deficit present. Mental Status: She is alert and oriented to person, place, and time. Vital Signs During ED Visit Patient Vitals for the past 24 hrs: BP Temp Temp src Pulse Resp SpO2 08/01/24 1922 144/83 99.4 F (37.4 C) Temporal 115 16 100 % Orders/Results: No orders of the defined types were placed in this encounter. Results for orders placed or performed during [...] MG/DL SODIUM 141 137 - 145 MMOL/L Potassium 3.9 3.5 - 5.1 MMOL/L CHLORIDE 110 [...] 107. URINALYSIS, MACRO Result Value Ref Range Color, Urine YELLOW YELLOW Appearance, Urine CLEAR CLEAR Specific [place], Urine 1.010 1.010 - 1.025 PH URINE 6.0 5.0 - 7.0 Urine Protein NEGATIVE NEGATIVE mg/dl Glucose, Urine NEGATIVE NEGATIVE mg/dl Ketones, Urine NEGATIVE NEGATIVE mg/dl BILIRUBIN, URINE NEGATIVE NEGATIVE BLOOD, URINE DIPSTICK NEGATIVE NEGATIVE Nitrites, Urine NEGATIVE NEGATIVE Urobilinogen, Urine 0.2 0.2 - 1.0 E.U./dL Leukocyte esterase, Urine MODERATE (A) NEGATIVE HCG QUALITATIVE, URINE Result Value Ref Range HCG, QUALITATIVE, URINE NEGATIVE URINE MICROSCOPIC Result Value Ref Range WBC, Urine 1 TO 5 NEGATIVE /HPF RBC, Urine NEGATIVE NEGATIVE /HPF Epithelial Cells UA 5 TO 10 /HPF Mucus NEGATIVE NEGATIVE Bacteria, Urine TRACE (A) NEGATIVE CRYSTALS, URINE NONE NONE CASTS, URINE NONE NONE /LPF COMMENT, URINE CULTURE CRITERIA NOT MET, NO CULTURE PERFORMED. Radiographic Imaging No orders to display Procedures: Procedures ED Summary/MDM Chronic pelvic pain flare related to ovarian remnant syndrome. Patient has multiple trips to ER forpain control. Patient only wants pain control tonight and no further work up. Patient is alert and oriented capable of making informed decision about her healthcare. I told patient that I was concerned about the possible addiction potential of the medications that she is getting from multiple ER visits. I told her I felt that she needs to get into chronic pain management as soon as possible. I told her that I could give her a pain medication orally in ER if I know she has a ride. She initially said she had a ride and will bring relative inside and then later said they would not come into ER. 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 She just wanted to leave. I told her I can give her nonnarcotic medication and she refused. I encourage her to try to talk with [employer] about a plan go forward to control her pain. I told her at anytime she can comeback and we would treat her pain if I know she has somebody that is available to drive her home. Clinical Impression: 1. Encounter for chronic pain management No follow-ups on file. New Prescriptions No medications on file Discontinued Medications No medications on file An After Visit Summary was printed and given to the patient with above information. . . Konstantin Jain MD 08/01/241952 [facility]02-01-2025 Emergency department Note* Yakelin Calvert RN - 07/14/2024 7:29 PM EST Dc paperwork given and explained. Voices understanding. Voices no further needs at this time. Pt ambulated to hospital exit without difficulty. Ride here and waiting in hospital waiting room. [facility]02-01-2025 Emergency department Note* Yakelin Calvert RN - 07/14/2024 7:29 PM EST Azael paperwork given and explained. Voices understanding. Voices no further needs at this time. Pt ambulated to hospital exit without difficulty. Ride here and waiting in hospital waiting room. * Donya Romano MD - 07/14/2024 6:25 PM EST Emergency Department Report [facility] Service Date:.07/14/24 PCP: No primary care provider on file. Chief Complaint: Chief Complaint Patient presents with Abdominal Pain Pt. Complains of Rt. Lower abd pain that started a week ago. 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 Pain 01/20. HPI Antonia Noyola is a 39 y.o. female presents to the ED with chief complaint of pelvic pain. Patient presents to emergency department complaining of pelvic pain. She states she has endometriosis and hadhysterectomy and oophorectomy procedure done. She states she was been having increasing pain since the end of May. 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 She denies any fall or injury no vaginal bleeding. She denies any shaking chills or fever. She denies frequency or urgency. Denies abdominal bloating or distention. She says he has been to the he was recently he was strong or medications to help with his flare-up. She states she has Toradol and tramadol at home, she was also been placed on gabapentin and they are trying to get her in to pain management to bridge time until surgery. She states she was also received Lupron shots earlier in the month Review of Systems: Review of Systems Seven systems have been reviewed and are negative unless listed specifically as positive in the HPI Past Medical History: Past Medical History: Diagnosis Date Anxiety Endometriosis Past Surgical History: Past Surgical History: Procedure Laterality Date HYSTERECTOMY Allergies: Allergies Allergen Reactions Morphine Hives and Itching Other Reaction(s): Other, Other: See Comments, Unknown, Unknown Reaction Other Reaction(s): Other: See Comments Spasms Spasms Other Reaction(s): Other: See Comments Spasms Spasms Atenolol Other Reaction(s): Dr. Cantu/ Dizzelizabeth Octacosanol Phenothiazines Anxiety and Itching Other Reaction(s): Jittery Medications: Patient's Medications New Prescriptions HYDROCODONE-ACETAMINOPHEN 5-325 MG TABLET Take 1 tablet by mouth every 6 hours as needed for SeverePain or Moderate Pain for up to 3 days. Previous Medications ALPRAZOLAM 0.25 MG TABLET Take 1 tablet by mouth. ATENOLOL 25 MG TABLET Take 1 tablet by mouth daily. CITALOPRAM 20 MG TABLET Take 1 tablet by mouth daily. CLINDAMYCIN 300 MG CAPSULE FLUCONAZOLE 150 MG TABLET TAKE 1 TABLET BY MOUTH ONCE KETOROLAC 10 MG TABLET Take 1 tablet by mouth Every 6 hours as needed. MULTIPLE VITAMINS-IRON (QC DAILY MULTIVITAMINS/IRON) TABLET Take 1 tablet by mouth daily. NABUMETONE 750 MG TABLET take 1 tablet by mouth every 12 hours as needed for pain NALOXONE 4 MG/0.1ML 1 spray by Nasal route once for 1 dose. [place] into the nose as directed. Call 911. If no response in 2 minutes use a new nasal spray in other nostril. Repeat until help arrives. ONDANSETRON 4 MG TAB DISPERSIBLE TABLET Place 1 tablet under tongue. OXYCODONE-ACETAMINOPHEN 5-325 MG PER TABLET Take 1 tablet by mouth every 6 hours as needed for Moderate Pain for up to 7 days. TRAMADOL 50 MG TABLET TAKE 1 TABLET BY MOUTH EVERY 6 HOURS NEEDED FOR PAIN FOR UP TO 3 DAYS. TAKE LOWEST DOSE POSSIBLE Modified Medications No medications on file Discontinued Medications HYDROCODONE-ACETAMINOPHEN 5-325 MG TABLET TAKE 1 TABLET BY MOUTH EVERY 6 HOURS FOR 3 DAYS Family History: History reviewed. No pertinent family [...] and Sexual Activity Alcohol use: Yes Comment: social Drug use: Never Sexual activity: Not on file Other Topics Concern Not on file Social History Narrative Not on file Social Determinants of Health Financial Resource Strain: Not on file Food Insecurity: No Food Insecurity (07/13/2024) Received from [facility] Hunger Screening Within the past [...] Connections: Unknown (03/22/2023) Received from [facility] Family and Community Support Help with Day-to-Day Activities: Not on file Lonely or Isolated: Not on file Intimate Partner Violence: Unknown (03/22/2023) Received from [facility] Abuse Screen Unsafe at Home or Work/School: Not on file Feels Threatened by Someone?: Not on file Does Anyone Keep You from Contacting Others or Doint Things Outside the Home?: Not on file Physical Sign of Abuse Present: Not on file Housing Stability: Unknown (03/22/2023) Received from [facility] Housing Stability Current Living Arrangements: Not on file Potentially Unsafe Housing Conditions: Not on file Physical Exam: Physical Exam General: Well-developed well-nourished HENT: Head is atraumatic. Face is symmetric. Mucous membranes are hydrated Eyes: Pupils are equal Skin: Warm and dry Abdomen: Soft. No distention. No rebound. No CVA tenderness. Bowel sounds are heard in all 4 quadrants Respiratory: Clear. No wheezing Heart: Heart tones are regular. Capillary refill is Neurologic: Awake, alert, oriented moving all extremities well. Gait is narrow based and stable Lymphatic: No anterior-posterior cervical lymphadenopathy Musculoskeletal: No trauma no fracture no deformity Psychiatric: Cooperative with the examiner Vital Signs During ED Visit Patient Vitals for the past 24 hrs: BP Temp Temp src Pulse Resp SpO2 07/14/24 1823 (!) 181/98 98.8 F (37.1 C) Oral 130 18 96 % Orders/Results: No results found for this visit on 07/14/24. Radiographic Imaging No orders to display Procedures: Procedures Moderate Sedation Procedure: No ED Summary/MDM At this time patient was given IV medications for pain. She was to give her OB. I have written her for a few narcotic pain pills for home. Return if any worsening symptoms. Clinical Impression: 1. Pelvic and perineal pain 2. Endometriosis 3. Ovarian remnant syndrome No follow-ups on file. New Prescriptions HYDROCODONE-ACETAMINOPHEN 5-325 MG TABLET Take 1 tablet by mouth every 6 hours as needed for SeverePain or Moderate Pain for up to 3 days. Discontinued Medications HYDROCODONE-ACETAMINOPHEN 5-325 MG TABLET TAKE 1 TABLET BY MOUTH EVERY 6 HOURS FOR 3 DAYS An After Visit Summary was printed and given to the patient with above information. . Donya Romano MD 07/14/24 1839 [facility] Emergency department Note* Donya Romano MD - 07/14/2024 6:25 PM EST Emergency Department Report [facility] Service Date:.07/14/24 PCP: No primary care provider on file. Chief Complaint: Chief Complaint Patient presents with Abdominal Pain Pt. Complains of Rt. Lower abd pain that started a week ago. 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 Pain 01/20. HPI Antonia Noyola is a 39 y.o. female presents to the ED with chief complaint of pelvic pain. Patient presents to emergency department complaining of pelvic pain. She states she has endometriosis and hadhysterectomy and oophorectomy procedure done. She states she was been having increasing pain since the end of May. 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 She denies any fall or injury no vaginal bleeding. She denies any shaking chills or fever. She denies frequency or urgency. Denies abdominal bloating or distention. She says he has been to the he was recently he was strong or medications to help with his flare-up. She states she has Toradol and tramadol at home, she was also been placed on gabapentin and they are trying to get her in to pain management to bridge time until surgery. She states she was also received Lupron shots earlier in the month Review of Systems: Review of Systems Seven systems have been reviewed and are negative unless listed specifically as positive in the HPI Past Medical History: Past Medical History: Diagnosis Date Anxiety Endometriosis Past Surgical History: Past Surgical History: Procedure Laterality Date HYSTERECTOMY Allergies: Allergies Allergen Reactions Morphine Hives and Itching Other Reaction(s): Other, Other: See Comments, Unknown, Unknown Reaction Other Reaction(s): Other: See Comments Spasms Spasms Other Reaction(s): Other: See Comments Spasms Spasms Atenolol Other Reaction(s): Dr. Cantu/ Justin Octacosanol Phenothiazines Anxiety and Itching Other Reaction(s): Jittery Medications: Patient's Medications New Prescriptions HYDROCODONE-ACETAMINOPHEN 5-325 MG TABLET Take 1 tablet by mouth every 6 hours as needed for SeverePain or Moderate Pain for up to 3 days. Previous Medications ALPRAZOLAM 0.25 MG TABLET Take 1 tablet by mouth. ATENOLOL 25 MG TABLET Take 1 tablet by mouth daily. CITALOPRAM 20 MG TABLET Take 1 tablet by mouth daily. CLINDAMYCIN 300 MG CAPSULE FLUCONAZOLE 150 MG TABLET TAKE 1 TABLET BY MOUTH ONCE KETOROLAC 10 MG TABLET Take 1 tablet by mouth Every 6 hours as needed. MULTIPLE VITAMINS-IRON (QC DAILY MULTIVITAMINS/IRON) TABLET Take 1 tablet by mouth daily. NABUMETONE 750 MG TABLET take 1 tablet by mouth every 12 hours as needed for pain NALOXONE 4 MG/0.1ML 1 spray by Nasal route once for 1 dose. [place] into the nose as directed. Call 911. If no response in 2 minutes use a new nasal spray in other nostril. Repeat until help arrives. ONDANSETRON 4 MG TAB DISPERSIBLE TABLET Place 1 tablet under tongue. OXYCODONE-ACETAMINOPHEN 5-325 MG PER TABLET Take 1 tablet by mouth every 6 hours as needed for Moderate Pain for up to 7 days. TRAMADOL 50 MG TABLET TAKE 1 TABLET BY MOUTH EVERY 6 HOURS NEEDED FOR PAIN FOR UP TO 3 DAYS. TAKE LOWEST DOSE POSSIBLE Modified Medications No medications on file Discontinued Medications HYDROCODONE-ACETAMINOPHEN 5-325 MG TABLET TAKE 1 TABLET BY MOUTH EVERY 6 HOURS FOR 3 DAYS Family History: History reviewed. No pertinent family [...] and Sexual Activity Alcohol use: Yes Comment: social Drug use: Never Sexual activity: Not on file Other Topics Concern Not on file Social History Narrative Not on file Social Determinants of Health Financial Resource Strain: Not on file Food Insecurity: No Food Insecurity (07/13/2024) Received from [facility] Hunger Screening Within the past 12 [...] Connections: Unknown (03/22/2023) Received from [facility] Family and Community Support Help with Day-to-Day Activities: Not on file Lonely or Isolated: Not on file Intimate Partner Violence: Unknown (03/22/2023) Received from [facility] Abuse Screen Unsafe at Home or Work/School: Not on file Feels Threatened by Someone?: Not on file Does Anyone Keep You from Contacting Others or Doint Things Outside the Home?: Not on file Physical Sign of Abuse Present: Not on file Housing Stability: Unknown (03/22/2023) Received from [facility] Housing Stability Current Living Arrangements: Not on file Potentially Unsafe Housing Conditions: Not on file Physical Exam: Physical Exam General: Well-developed well-nourished HENT: Head is atraumatic. Face is symmetric. Mucous membranes are hydrated Eyes: Pupils are equal Skin: Warm and dry Abdomen: Soft. No distention. No rebound. No CVA tenderness. Bowel sounds are heard in all 4 quadrants Respiratory: Clear. No wheezing Heart: Heart tones are regular. Capillary refill is Neurologic: Awake, alert, oriented moving all extremities well. Gait is narrow based and stable Lymphatic: No anterior-posterior cervical lymphadenopathy Musculoskeletal: No trauma no fracture no deformity Psychiatric: Cooperative with the examiner Vital Signs During ED Visit Patient Vitals for the past 24 hrs: BP Temp Temp src Pulse Resp SpO2 07/14/24 1823 (!) 181/98 98.8 F (37.1 C) Oral 130 18 96 % Orders/Results: No results found for this visit on 07/14/24. Radiographic Imaging No orders to display Procedures: Procedures Moderate Sedation Procedure: No ED Summary/MDM At this time patient was given IV medications for pain. She was to give her OB. I have written her for a few narcotic pain pills for home. Return if any worsening symptoms. Clinical Impression: 1. Pelvic and perineal pain 2. Endometriosis 3. Ovarian remnant syndrome No follow-ups on file. New Prescriptions HYDROCODONE-ACETAMINOPHEN 5-325 MG TABLET Take 1 tablet by mouth every 6 hours as needed for SeverePain or Moderate Pain for up to 3 days. Discontinued Medications HYDROCODONE-ACETAMINOPHEN 5-325 MG TABLET TAKE 1 TABLET BY MOUTH EVERY 6 HOURS FOR 3 DAYS An After Visit Summary was printed and given to the patient with above information. . Donya Romano MD 07/14/24 1883 [facility] Discharge instructions* Discharge Instructions* Shalonda Bacon MD - 07/12/2024 1:41 AM EST Continue current medications as prescribed. Use [place] in place of Tylenol for pain not controlled with Tylenol. Flexeril every 8 hours to see if this helps. Heat or ice for 5 to 10-minute intervals as desired for comfort. May use etay-fpp-tkduphm product such as IcyHot Biofreeze or similar as needed and directed. Follow-up with your [employer] provider soon as possible. Please return immediately for anyacute concerns * Attachments The following attachments cannot be sent through Care Everywhere. * Abdominal Pain (Jordanian) [facility] NoteEducation Materials Mental and Behavioral Health Chronic Pain, Adult Chronic pain is a type of pain that lasts or keeps coming back for at least 3?6 months. You may have headaches, pain in the abdomen, or pain in other areas of the body. Chronic pain may be related dennis illness, injury, or a health condition. Sometimes, the cause of chronic pain is not known. Chronic pain can make it hard for you to do daily activities. If it is not treated, chronic pain can lead to anxiety and depression. Treatment depends on the cause of your pain and how severe it is. You may need to work with a pain specialist to come up with a treatment plan. Many people benefit from two or more types of treatment to control their pain. Follow these instructions at home: Treatment plan Follow your treatment plan as told by your health care provider. This may include: ? Gentle, regular exercise. ? Eating a healthy diet that includes foods such as vegetables, fruits, fish, and lean meats. ? Mental health therapy (cognitive or behavioral therapy) that changes the way you think or act in response to the pain. This may help improve how you feel. ? Doing physical therapy exercises to improve movement and strength. ? Meditation, yoga, acupuncture, or massage therapy. ? Using the oils from plants in your environment or on your skin (aromatherapy). Other treatments may include: ? Nszr-bcs-opetgfg or prescription medicines. ? Color, light, or sound therapy. ? Local electrical stimulation. The electrical pulses help to relieve pain by temporarily stopping the nerve impulses that cause you to feel pain. ? Injections. These deliver numbing or pain-relieving medicines into the spine or the area of pain. Medicines ? Take pliz-tei-dkuyzso and prescription medicines only as told by your health care provider. ? Ask your health care provider if the medicine prescribed to you: ? Requires you to avoid driving or using machinery. ? Can cause constipation. You may need to take these actions to prevent or treat constipation: ? Drink enough fluid to keep your urine pale yellow. ? Take kaec-zxk-mxdevhn or prescription medicines. ? Eat foods that are high in fiber, such as beans, whole grains, and fresh fruits and vegetables. ? Limit foods that are high in fat and processed sugars, such as fried or sweet foods. Lifestyle ? Ask your health care provider whether you should keep a pain diary. Your health care provider will tell you what information to write in the diary. This may include: ? When you have pain. ? What the pain feels like. ? How medicines and other behaviors or treatments help to reduce the pain. ? Consider talking with a mental health care provider about how to help manage chronic pain. ? Consider joining a chronic pain support group. ? Try to control or lower your stress levels. Talk with your health care provider about ways to do this. General instructions ? Learn as much as you can about how to manage your chronic pain. Ask your health care provider if an intensive pain rehabilitation program or a chronic pain specialist would be helpful. ? Check your pain level as told by your health care provider. Ask your health care provider if you should use a pain scale. Contact a health care provider if: ? Your pain is not controlled with treatment. ? You have new pain. ? You have side effects from pain medicine. ? You feel weak or you have trouble doing your normal activities. ? You have trouble sleeping or you develop confusion. ? You lose feeling or have numbness in your body. ? You lose control of your bowels or bladder. Get help right away if: ? Your pain suddenly gets much worse. ? You develop chest pain. ? You have trouble breathing or shortness of breath. ? You faint, or another person sees you faint. These symptoms may be an emergency. Get help right away. Call 911. ? Do not wait to see if the symptoms will go away. ? Do not drive yourself to the hospital. Also, get help right away if: ? You have thoughts about hurting yourself or others. Take one of these steps if you feel like you may hurt yourself or others, or have thoughts about taking your own life: ? Go to your nearest emergency room. ? Call 911. ? Call the [employer] Suicide Prevention Lifeline at or 469. This is open 24 hours a day. ? Text the Crisis Text Line at 006022. This information is not intended to replace advice given to you by your health care provider. Make sure you discuss any questions you have with your health care provider. Document Revised: 01/19/2023 Document Reviewed: 12/22/2022 [employer] Patient Education ? 2023 [employer].[facility] [id number] Note Education Materials Gastroenterology Abdominal Pain, Adult Pain in the [...] these instructions at home: Medicines ? Take zbbs-rsl-rmolpoh and prescription medicines only as told by your provider. ? Do not take medicines that help you poop (laxatives) unless told by your provider. General instructions ? Watch your condition for any changes. ? Drink enough fluid to keep your pee (urine) pale yellow. Contact a health care provider if: ? Your pain changes, gets worse, or lasts longer than expected. ? You have severe cramping or bloating in your abdomen, or you vomit. ? Your pain gets worse with meals, after eating, or with certain foods. ? You are constipated or have diarrhea for more than 2?3 days. ? You are not hungry, or you lose weight without trying. ? You have signs of dehydration. These may include: ? Dark pee, very little pee, or no pee. ? Cracked lips or dry mouth. ? Sleepiness or weakness. ? You have pain when you pee (urinate) or poop. ? Your abdominal pain wakes you up at night. ? You have blood in your pee. ? You have a fever. Get help right away if: ? You cannot stop vomiting. ? Your pain is only in one part of the abdomen. Pain on the right side could be caused by appendicitis. ? You have bloody or black poop (stool), or poop that looks like tar. ? You have trouble breathing. ? You have chest pain. These symptoms may be an emergency. Get help right away. Call 911. ? Do not wait to see if the symptoms will go away. ? Do not drive yourself to the hospital. This information is not intended to replace advice given to you by your health care provider. Make sure you discuss any questions you have with your health care provider. Document Revised: 03/16/2023 Document Reviewed: 03/16/2023 [employer] Patient Education ? 2023 [employer]. Mental and Behavioral Health Chronic Pain, Adult Chronic pain is a type of pain that lasts or keeps coming back for at least 3?6 months. You may have headaches, pain in the abdomen, or pain in other areas of the body. Chronic pain may be related dennis illness, injury, or a health condition. Sometimes, the cause of chronic pain is not known. Chronic pain can make it hard for you to do daily activities. If it is not treated, chronic pain can lead to anxiety and depression. Treatment depends on the cause of your pain and how severe it is. You may need to work with a pain specialist to come up with a treatment plan. Many people benefit from two or more types of treatment to control their pain. Follow these instructions at home: Treatment plan Follow your treatment plan as told by your health care provider. This may include: ? Gentle, regular exercise. ? Eating a healthy diet that includes foods such as vegetables, fruits, fish, and lean meats. ? Mental health therapy (cognitive or behavioral therapy) that changes the way you think or act in response to the pain. This may help improve how you feel. ? Doing physical therapy exercises to improve movement and strength. ? Meditation, yoga, acupuncture, or massage therapy. ? Using the oils from plants in your environment or on your skin (aromatherapy). Other treatments may include: ? Udah-qbr-wpqurco or prescription medicines. ? Color, light, or sound therapy. ? Local electrical stimulation. The electrical pulses help to relieve pain by temporarily stopping the nerve impulses that cause you to feel pain. ? Injections. These deliver numbing or pain-relieving medicines into the spine or the area of pain. Medicines ? Take yfhh-abu-ashebsh and prescription medicines only as told by your health care provider. ? Ask your health care provider if the medicine prescribed to you: ? Requires you to avoid driving or using machinery. ? Can cause constipation. You may need to take these actions to prevent or treat constipation: ? Drink enough fluid to keep your urine pale yellow. ? Take nqoh-mio-ymdwmkt or prescription medicines. ? Eat foods that are high in fiber, such as beans, whole grains, and fresh fruits and vegetables. ? Limit foods that are high in fat and processed sugars, such as fried or sweet foods. Lifestyle ? Ask your health care provider whether you should keep a pain diary. Your health care provider will tell you what information to write in the diary. This may include: ? When you have pain. ? What the pain feels like. ? How medicines and other behaviors or treatments help to reduce the pain. ? Consider talking with a mental health care provider about how to help manage chron (more content not included)...[facility] [id number] Evaluation + Plan noteExtracted from: Title:ED Note Author:Jordyn Willett DO Date [...] Panel Lipase Level UA with Cult Rflx [facility] 01-16-2025 Hospital Discharge instructions Patient Education 06/28/2024 01:38:52 Abdominal Pain, Adult, Xwvd-zn-Iqoa Abdominal Pain, Adult Many things can cause belly (abdominal) pain. In most cases, belly pain is not a serious problem and can be watched and treated at home. But in some cases, it can be serious. Your doctor will try to find the cause of your belly pain. Follow these instructions at home: Medicines Take tmem-tsi-qshapjd and prescription medicines only as told by [...] provider. Document Revised: 03/16/2023 Document Reviewed: 03/16/2023 [employer] Patient Education 2023 [employer]. Follow Up Care 06/27/2024 21:47:06 With:[employer] Address: [address] [place] [address] [place] [address] Business (1) When:07/01/2024 Comments:Please follow-up with your primary care doctor and FITNESS TECHNICIAN for further evaluation and management. Return to the ED for any new or worsening symptoms. With:XXXX NONE Address: [place] When:Within 3 Day(s) [facility] 01-16-2025 NoteED Patient Education Note Gastroenterology Abdominal Pain, Adult Many things can cause belly (abdominal) pain. In most cases, belly pain is not a serious problem and can be watched and treated at home. But in some cases, it can be serious. Your doctor will try to find the cause of your belly pain. Follow these instructions at home: Medicines ??? Take zqxg-txz-zlcxuii and prescription medicines only as told by [...] provider. Document Revised: 03/16/2023 Document Reviewed: 03/16/2023 [employer] Patient Education ? 2023 [employer].[facility] 06-27-2024 Hospital Discharge instructions* Discharge Instructions* Randee Richardson MD - 06/27/2024 3:16 PM EST Please call your FITNESS TECHNICIAN and schedule follow-up visit. Continue taking your pain medications as prescribed. Return to the ER for any worsening symptoms or concerns * Attachments The following attachments cannot be sent through Care Everywhere. * Abdominal Pain (Jordanian) [facility] Discharge instructions Patient Education 06/25/2024 [...] Follow these instructions at home: Medicines Take kvcn-xvr-dlyrngb and prescription medicines only as told by [...] provider. Document Revised: 03/16/2023 Document Reviewed: 03/16/2023 [employer] Patient Education 2023 [employer]. Follow Up Care 06/24/2024 19:25:17 With:Ernie CHIRINOS Address: [address] [place] [id number] Business (1) When:06/28/2024 [facility] 01-13-2025 NoteED Patient Education Note Gastroenterology Abdominal [...] these instructions at home: Medicines ??? Take dcrx-qxk-gwvkmxu and prescription medicines only as told by [...] provider. Document Revised: 03/16/2023 Document Reviewed: 03/16/2023 [employer] Patient Education ? 2023 [employer] TechnologiesEbenezerU[facility]-2024 Evaluation + Plan noteExtracted from: Title:ED Note Author:Ivana Ritesh LewisEbenezer Date :06/24/24 Abdominal pain, acute (R10.9 : Unspecified abdominal pain) Ordered: acetaminophen-oxycodone, 1 tab(s), Oral, q8hr for 3 day(s), 9 tab(s), Refill(s) 0, [facility]/pharmacy #[id number], 165, cm, 06/24/24 19:33:00 [...] Beta Hcg Qual UA with Cult Rflx [facility] 12-30-2024 NoteEducation Materials Obstetrics and Gynecology Ovarian [...] Follow these instructions at home: ? Take krdt-dnu-hldprly and prescription medicines only as told by [...] provider. Document Revised: 10/31/2020 Document Reviewed: 11/06/2020 [employer] Patient Education ? 2023 [employer] TechnologiesOhiohealth [facility]12-[facility]-2024 Miscellaneous Notes* Telephone Encounter - Shefalialisia Rodriguez - 06/11/2024 8:57 AM EST [employer] left voicemail to schedule a H/F with Kendra in [place]. [facility] encounter Note* Telephone Encounter - Shefali Michael - 06/11/2024 8:57 AM EST [employer] left voicemail to schedule a H/F with Kendra in [place]. [facility]12[facility] Miscellaneous Notes* Telephone Encounter - Isabell Lentz - 06/09/2024 8:05 PM EST Contract: [address] [place] re abnormal CT, post-op Relayed info to Dr Woo on cell and transferred documented in this encounterMount [facility]12-28-2024 Telephone encounter Note* Telephone Encounter - Isabell Lentz - 06/09/2024 8:05 PM EST Contract: [address] [place] kidd abnormal CT, post-op Relayed info to Dr Woo on cell and transferred [facility]12-27-2024 NoteEducation Materials Obstetrics and Gynecology Endometriosis Follow-up with your FITNESS TECHNICIAN to review this emergency department visit and [...] these instructions at home: Medicines ? Take vfam-cuu-idbeqek and prescription medicines only as told by your health care provider. ? Ask your health care provider if the medicine prescribed to you: ? Requires you to avoid driving or using machinery. ? Can cause constipation. You may need to take these actions to prevent or treat constipation: ? Drink enough fluid to keep your urine pale yellow. ? Take fuuo-zep-hrlyaak or prescription medicines. ? Eat foods that [...] important. Where to find more information ? [employer]: www.acog.org ? [...] vomiting, or you (more content not included)... [id number] Emergency department Note* Davi Rivas, DO - 03/03/2024 4:47 PM EDT Emergency Department Report [facility] Service Date:.03/03/24 PCP: No [...] for months. Patient states she has seen FITNESS TECHNICIAN specialist in [place], Dr. Mendoza, to have her uterus/hysterectomy secondary to endometriosis. Patient says that she then b etween PCPs at this point. Patient does have a OBGYN in [facility], Dr. Berrios. Patient states she is not [...] by Nasal route once for 1 dose. [place] into the nose as directed. Call 911. [...] Insecurity: No Food Insecurity (01/27/2024) Received from [facility] Hunger Screening Within the past 12 [...] Connections: Unknown (03/22/2023) Received from [facility] Family and Community Support Help with Day-to-Day Activities: Not on file Lonely or Isolated: Not on file Intimate Partner Violence: Unknown (03/22/2023) Received from [facility] Abuse Screen Unsafe at Home or Work/School: Not on file Feels Threatened by Someone?: Not on file Does Anyone Keep You from Contacting Others or Doint Things Outside the Home?: Not on file Physical Sign of Abuse Present: Not on file Housing Stability: Unknown (03/22/2023) Received from [facility] Housing Stability Current Living Arrangements: Not [...] to palpation. GI: Soft, patient does have yyxd-jn-thjenpns tenderness to palpation over lower quadrant, no [...] Orders Placed This Encounter AMB REFERRAL TO [facility] AMB REFERRAL TO [facility]RONIC PAIN CLINIC hydroCODone-acetaminophen [...] YELLOW YELLOW APPEARANCE, URINE CLEAR CLEAR Specific [place], Urine 1.010 1.010 - 1.025 PH URINE [...] have definitive treatment from Dr. Aparicio's in [place] for her endometriosis and hysterectomy which patient [...] . . Davi Rivas DO 03/03/24 1706 * Geri Burciaga RN [...] ED w/ steady gait documented in this [facility]09-21-2024 Physician Emergency department Note* Davi Rivas DO - 03/03/2024 4:47 PM EDT Emergency Department Report [facility] Service Date:.03/03/24 PCP: No [...] for months. Patient states she has seen FITNESS TECHNICIAN specialist in [place], Dr. Mendoza, to have her uterus/hysterectomy secondary to endometriosis. Patient says that she then b etween PCPs at this point. Patient does have a OBGYN in [facility], Dr. Berrios. Patient states she is not [...] by Nasal route once for 1 dose. [place] into the nose as directed. Call 911. [...] Insecurity: No Food Insecurity (01/27/2024) Received from [facility] Hunger Screening Within the past 12 [...] Connections: Unknown (03/22/2023) Received from [facility] Family and Community Support Help with Day-to-Day Activities: Not on file Lonely or Isolated: Not on file Intimate Partner Violence: Unknown (03/22/2023) Received from [facility] Abuse Screen Unsafe at Home or Work/School: Not on file Feels Threatened by Someone?: Not on file Does Anyone Keep You from Contacting Others or Doint Things Outside the Home?: Not on file Physical Sign of Abuse Present: Not on file Housing Stability: Unknown (03/22/2023) Received from [facility] Housing Stability Current Living Arrangements: Not [...] to palpation. GI: Soft, patient does have mdja-tx-fackogmm tenderness to palpation over lower quadrant, no [...] Orders Placed This Encounter AMB REFERRAL TO OB-[facility]ING[facility] AMB REFERRAL TO CHRONIC PAIN CLINIC hydroCODone-acetaminophen [...] YELLOW YELLOW APPEARANCE, URINE CLEAR CLEAR Specific [place], Urine 1.010 1.010 - 1.025 PH URINE [...] have definitive treatment from Dr. Aparicio's in [place] for her endometriosis and hysterectomy which patient [...] . . Davi Rivas DO 03/03/24 1706 [facility]09-21-2024 Emergency department Note* Geri Burciaga RN [...] ambulatory out of ED w/ steady gait [facility]09-21-2024 Hospital Discharge instructions* Discharge Instructions* Davi Rivas DO - 03/03/2024 4:[address] Wilson[facility] in [place] to see if your appointment may be moved up. Call Dr. Braden in [place] on Tuesday to see if they will [...] to you as well. [facility]* Ashley Delcid MD - 02/24/2024 11:24 PM EDT Emergency Department Report [facility] Service Date:.02/25/24 PCP: No [...] has a history of endometriosis. Follows with harness brusher in [place]. States she is waitingto be scheduled for a total hysterectomy. Last saw them in November as per records. She explains they just have not scheduled it yet but she is in constant pain. Review of records shows similar presentation at outlying facilities. Is here in [place] helping grandmother pack up to move to [place] with the rest of the family Review [...] by Nasal route once for 1 dose. [place] into the nose as directed. Call 911. [...] Insecurity: No Food Insecurity (01/27/2024) Received from [facility] [employer] Hunger Screening Within the past 12 months [...] Connections: Unknown (03/22/2023) Received from [facility] Family and Community Support Help with Day-to-Day Activities: Not on file Lonely or Isolated: Not on file Intimate Partner Violence: Unknown (03/22/2023) Received from [facility] Abuse Screen Unsafe at Home or Work/School: Not on file Feels Threatened by Someone?: Not on file Does Anyone Keep You from Contacting Others or Doint Things Outside the Home?: Not on file Physical Sign of Abuse Present: Not on file Housing Stability: Unknown (03/22/2023) Received from [facility] Housing Stability Current Living Arrangements: Not [...] YELLOW YELLOW APPEARANCE, URINE CLEAR CLEAR Specific [place], Urine 1.010 1.010 - 1.025 PH URINE [...] I offered to contact her physician in [place] and see if I could transfer her [...] like her to call her Doctor in [place] for possible transfer. Pt refuses. Pt states [...] her home if discharged documented in this [facility]09-13-2024 Physician Emergency department Note* Ashley Delcid MD - 02/24/2024 11:24 PM EDT Emergency Department Report [facility] Service Date:.02/25/24 PCP: No [...] has a history of endometriosis. Follows with harness brusher in [place]. States she is waitingto be scheduled for a total hysterectomy. Last saw them in November as per records. She explains they just have not scheduled it yet but she is in constant pain. Review of records shows similar presentation at outlying facilities. Is here in [place] helping grandmother pack up to move to [place] with the rest of the family Review [...] by Nasal route once for 1 dose. [place] into the nose as directed. Call 911. [...] No Food Insecurity (01/27/2024) Received from [facility] Hunger Screening Within the past 12 [...] Connections: Unknown (03/22/2023) Received from [facility] Family and Community Support Help with Day-to-Day Activities: Not on file Lonely or Isolated: Not on file Intimate Partner Violence: Unknown (03/22/2023) Received from [facility] Abuse Screen Unsafe at Home or Work/School: Not on file Feels Threatened by Someone?: Not on file Does Anyone Keep You from Contacting Others or Doint Things Outside the Home?: Not on file Physical Sign of Abuse Present: Not on file Housing Stability: Unknown (03/22/2023) Received from [facility] Housing Stability Current Living Arrangements: Not [...] YELLOW YELLOW APPEARANCE, URINE CLEAR CLEAR Specific [place], Urine 1.010 1.010 - 1.025 PH URINE [...] I offered to contact her physician in [place] and see if I could transfer her [...] information. . Ashley Delcid MD 02/25/24 0355 [facility]09-13-2024 Emergency department Note* Geri Burciaga RN - 02/24/2024 11:21 PM EDT AMA form signed. Pt aware of risks and refuses hospital admission. Pt states grandmother is at facility to transport her home. Denies further needs at this time. Pt is a&o respirations are even and unlabored. Pt ambulatory out of ED w/ steady gait [facility]09-13-2024 Emergency department Note* Geri Burciaga RN [...] like her to call her Doctor in [place] for possible transfer. Pt refuses. Pt states she does not want to be admitted anywhere and states will sign AMA form and call her pcp in the morning. [facility]09-13-2024 Emergency department Note* Geri Burciaga RN - 02/24/2024 9:46 PM EDT Pt states pain has not improved after dilaudid administration. Dr. Delcid made aware [facility]09-13-2024 Emergency department Note* Geri Burciaga RN - 02/24/2024 9:20 PM EDT Pt states her grandmother will transport her home if discharged [facility]09-05-2024 Emergency department Note* Una Levy RN - 02/16/2024 5:12 PM EDT Discharge instructions provided. Patient verbalized understanding. Denies any questions or concernsprior to discharge. Ambulatory out of ED with Rx X2. [facility]09-05-2024 Emergency department Note* Una Levy RN [...] 02/16/2024 1:48 PM EDT Emergency Department Report [facility] Service Date:.02/16/24 PCP: No [...] by Nasal route once for 1 dose. [place] into the nose as directed. Call 911. [...] Insecurity: No Food Insecurity (01/27/2024) Received from [facility] Hunger Screening Within the past 12 [...] Connections: Unknown (03/22/2023) Received from [facility] Family and Community Support Help with Day-to-Day Activities: Not on file Lonely or Isolated: Not on file Intimate Partner Violence: Unknown (03/22/2023) Received from [facility] Abuse Screen Unsafe at Home or Work/School: Not on file Feels Threatened by Someone?: Not on file Does Anyone Keep You from Contacting Others or Doint Things Outside the Home?: Not on file Physical Sign of Abuse Present: Not on file Housing Stability: Unknown (03/22/2023) Received from [facility] Housing Stability Current Living Arrangements: Not on file Potentially Unsafe Housing Conditions: Not on file Physical Exam: Physical Exam CONST: -Well-developed well-nourished ; -In no acute distress. -Vitals reviewed. EYES: -EOM intact, KOLBY: -Sclera normal and conjunctiva: clear bilaterally. ENT: - Normal pharynx pink and moist. NECK: -Supple (kunp-zs-cwvhf). CARD: -Rate and rhythm: Regular -Murmurs: No [...] by Nasal route once for 1 dose. [place] into the nose as directed. Call 911. [...] information. . . Jennifer Moore MD 02/16/24 1657 documented in this [facility]09-05-2024 Hospital Discharge instructions* Discharge Instructions* Jennifer Moore MD - 02/16/2024 4:52 PM EDT Tylenol for moderate pain. Full liquid diet for 2 days. * Attachments The following attachments cannot be sent through Care Everywhere. * Abdominal Pain (Jordanian) [facility] Note* Una Levy RN - 02/16/2024 3:40 PM EDT Patient states that pain is getting worse again. Dr Moore notified. No new orders received at this time. States he is waiting for CT results. Patient updated on plan. [facility]09-05-2024 Emergency department Note* Tangela Guajardo RN - 02/16/2024 3:10 PM EDT Pt taken to CT scan [facility]09-05-2024 Physician Emergency department Note* Jennifer Moore MD - 02/16/2024 1:48 PM EDT Emergency Department Report [facility] Service Date:.02/16/24 PCP: No [...] by Nasal route once for 1 dose. [place] into the nose as directed. Call 911. [...] Insecurity: No Food Insecurity (01/27/2024) Received from [facility] Hunger Screening Within the past 12 [...] Connections: Unknown (03/22/2023) Received from [facility] Family and Community Support Help with Day-to-Day Activities: Not on file Lonely or Isolated: Not on file Intimate Partner Violence: Unknown (03/22/2023) Received from [facility] Abuse Screen Unsafe at Home or Work/School: Not on file Feels Threatened by Someone?: Not on file Does Anyone Keep You from Contacting Others or Doint Things Outside the Home?: Not on file Physical Sign of Abuse Present: Not on file Housing Stability: Unknown (03/22/2023) Received from [facility] Housing Stability Current Living Arrangements: Not on file Potentially Unsafe Housing Conditions: Not on file Physical Exam: Physical Exam CONST: -Well-developed well-nourished ; -In no acute distress. -Vitals reviewed. EYES: -EOM intact, KOLBY: -Sclera normal and conjunctiva: clear bilaterally. ENT: - Normal pharynx pink and moist. NECK: -Supple (jgjy-mv-xxoir). CARD: -Rate and rhythm: Regular -Murmurs: No [...] by Nasal route once for 1 dose. [place] into the nose as directed. Call 911. [...] information. . . Jennifer Moore MD 02/16/24 9623 [facility]09-02-2024 Evaluation + Plan noteExtracted from: Title:ED Note Author:Ivana Ritesh LewisEbenezer Date :02/13/24 Pain, dental (K08.89: [...] EDT, STAT, Start date 02/13/24 0:43:00 EDT [facility] 09-02-2024 Hospital Discharge instructions Patient Education 02/13/2024 [...] or after getting dental care. Medicines Take nsjd-lkz-zcgxxzw and prescription medicines only as told by [...] pain may be mild or severe. Take gwpt-uvo-zpzwaaz and prescription medicines only as told by [...] provider. Document Revised: 03/04/2021 Document Reviewed: 03/04/2021 [employer] Patient Education 2023 [employer]. Follow Up Care 02/13/2024 00:22:40 With:Dental: [facility] [phone] Address:Unknown When:02/16/2024 With:Dental: [facility] [phone] Address:Unknown When:02/16/2024 With:Dental: [facility] [phone] Address:Unknown When:02/16/2024 [facility] 09-02-2024 NoteED Patient Education Note Dentistry Dental [...] after getting dental care. Medicines ? Take wjkc-xup-pirepyp and prescription medicines only as told by [...] may be mild or severe. ? Take czlw-lte-iiqcgfi and prescription medicines only as told by [...] provider. Document Revised: 03/04/2021 Document Reviewed: 03/04/2021 [employer] Patient Education ? 2023 [employer].[facility] 01-22-2024 Hospital Discharge instructions* Discharge Instructions* [...] through Care Everywhere. * Ovarian Cyst: Functional (Jordanian) [facility]* Author Jennifer Duran [facility] Authored January 19, 2024 11: 44am The above note written by __ _Polly Collado____ acting as human recorder, note dictated by Dr. Mcfadden .I performed the above HPI, ROS, and Examination. I formulated and dictated the treatment plan and was present for entire encounter. Jennifer Duran D.O. [facility] Work Phone: 1(362) 412-310705-28-2024 Hospital Discharge instructions* Discharge Instructions* Eren Camejo DO - 11/08/2023 12:01 PM EDT Use clindamycin as prescribed. Continue the pain medicine that you have at home as needed for pain.Follow-up with dentist as scheduled * Attachments The following attachments cannot be sent through Care Everywhere. * Tooth and Gum Pain (Jordanian) [facility] note* Author Jennifer Duran [facility] Authored October 18, 2023 3:45pm The above note written by __ _Polly Collado____ acting as human recorder, note dictated by Dr. Mcfadden .I performed the above HPI, ROS, and Examination. I formulated and dictated the treatment plan and was present for entire encounter. Jennifer Duran D.O. [facility] Work Phone: 1(177) 318-197304-19-2024 Evaluation + Plan noteExtracted from: Title:ED Note [...] Diagnostic Tests Pending * Urine Culture 09/30/23 [facility]04-19-2024 Hospital Discharge instructions Patient Education 09/30/2023 02:15:06 [...] (oophorectomy). Follow these instructions at home: Take enfl-ack-sstldru and prescription medicines only as told by [...] provider. Document Revised: 11/06/2020 Document Reviewed: 11/06/2020 [employer] Patient Education 2022 [employer]. Follow Up Care 09/29/2023 23:40:10 With:Rose Royal Address: [address] [address]- Business (1) When:10/03/2023 [facility]04-15-2024 Hospital Discharge instructions Follow Up Care 09/26/2023 13:55:08 With:[facility] Address: [address] [place] [address]- Business (1) When:09/29/2023 17:49:12 With:Tarun BRADEN Address: [address] , [place] [address]- Business (1) When:09/29/2023 17:49:03 With:XXXX NONE Address: [place] When:Within 3 Day(s) [facility]04-15-2024 Evaluation + Plan noteExtracted from: Title:ED Note [...] q12hr, # 20 tab(s), Refills(s) 0, Pharmacy: [facility]/pharmacy #[id number], 165, cm, 09/26/23 14:18:00 EDT, Height/Length Dosing, 81.2, kg, 09/26/23 14:18:00 EDT, Weight Dosing hyoscyamine, 0.125 mg = 1 tab(s), Oral, QID, X 5 day(s), # 20 tab(s), Refills(s) 0, Pharmacy: [facility]/pharmacy #[id number], 165, cm, 09/26/23 14:18:00 EDT, Height/Length Dosing, 81.2, kg, 09/26/23 14:18:00 EDT, Weight Dosing ketorolac, 30 mg = 1 mL, Injection, IV, Once, Stop date 09/26/23 15:40:00 EDT, STAT, Start date 09/26/23 15:40:00 EDT, 09/26/23 15:40:00 EDT polyethylene glycol 3350, 17 gm, Oral, Daily, X 7 day(s), # 119 gm, Refills(s) 0, Pharmacy: [facility]/pharmacy #[id number], 165, cm, 09/26/23 14:18:00 EDT, Height/Length Dosing, 81.2, kg, 09/26/23 14:18:00 EDT, Weight Dosing Beta hCG Qual CBC w/ Auto Diff Comprehensive Metabolic Panel CT Abdomen/Pelvis w/ Contrast Drug Screen Urine eGFR Extra Blue Tube Extra SST Tube Lipase Level UA with Cult Rflx US Pelvis Non-OB Complete US Transvaginal Non-OB [facility]02-18-2024 Hospital Discharge instructions Patient Education 07/31/2023 17:55:00 [...] Follow these instructions at home: Medicines Take fdof-bbg-sawhrvp and prescription medicines only as told by [...] Watch your condition for any changes. Take allz-kda-lwsdool and prescription medicines only as told by [...] provider. Document Revised: 07/18/2020 Document Reviewed: 10/08/2019 [employer] Patient Education 2022 [employer]. Follow Up Care 07/31/2023 15:34:13 With:Follow-up with your FITNESS TECHNICIAN at [facility] Address:Unknown When:08/03/2023 17:52:19 Comments:Call the office [...] weakness, or any new or worsening symptoms. [facility]02-15-2024 Evaluation note* Author Jennifer Duran [facility] Authored July 28, 2023 1:18pm The above note written by __ _Polly Collado____ acting as human recorder, note dictated by Dr. Mcfadden .I performed the above HPI, ROS, and Examination. I formulated and dictated the treatment plan and was present for entire encounter. Jennifer Duran D.O. [facility] Work Phone: 1(274) 538-806602-06-2024 Evaluation note* Encounter Date Diagnosis Assessment Notes Treatment Notes Treatment Clinical Notes Jul, Anxiety (ICD-10 - F41.9) [employer] Other 02-06-2024 Evaluation note* Encounter Date Diagnosis [...] an appointment with her specialist through the [facility] and is scheduled at the end of this month (July) and is hoping to have a total hysterectomy. [employer] Other 12-26-2023 Evaluation note* Encounter Date Diagnosis Assessment Notes Treatment Notes Treatment Clinical Notes May, Cough (ICD-10 - R05.9) [employer] Other 12-04-2023 Evaluation note* Encounter Date Diagnosis Assessment Notes Treatment Notes Treatment Clinical Notes May, Anxiety (ICD-10 - F41.9) [employer] Other 11-12-2023 Hospital Discharge instructions Patient Education [...] Follow these instructions at home: Medicines Take gzzp-prz-dyzcsss and prescription medicines only as told by [...] Watch your condition for any changes. Take kint-bwu-itpeysr and prescription medicines only as told by [...] provider. Document Revised: 07/18/2020 Document Reviewed: 10/08/2019 [employer] Patient Education 2022 [employer] Follow Up Care 04/24/2023 13:13:55 With:YOUR OBGYN at [facility] Address:Unknown When:04/27/2023 15:50:22 Comments:Seek immediate medical [...] develop any new or worsening symptoms. 3. [facility]11-12-2023 Evaluation + Plan noteExtracted from: Title:ED Note Author:Jignesh Dumont DO Date:06/24/22 Abdominal pain, acute, left lower quadrant (R10.32: Left lower quadrant pain) Ordered: oxycodone, 5 mg = 1 cap(s), Oral, q6hr, PRN Pain 8-10, X 3 day(s), # 12 cap(s), Refills(s) 0, Pharmacy: [facility]/pharmacy #[id number], 165.1, cm, 04/24/23 13:32:00 [...] Saline Lock Insert UA With Cult Reflex [facility]11-06-2023 Evaluation note* Encounter Date Diagnosis [...] an appointment with her specialist at the [facility] in June (2023) which was the soonest they could get her in. She is hoping that they will at least remove the ovary but she is willing to have a total hysterectomy if they will do it. 1:13 PM - 1:20 PM [employer] Other 10-20-2023 Evaluation note* Encounter Date Diagnosis Assessment Notes Treatment Notes Treatment Clinical Notes Mar, Anxiety (ICD-10 - F41.9) [facility] [employer] Other 10-17-2023 Progress note Author Christi Aquino [facility] March 29, 2023 4:11pm Note Date/Time March 29, 2023 1 1:35am [facility] [address] [place] [address] Progress Note Signed with Addenda Patient: Antonia Noyola MR#: [id number] : 1985 Acct:[id number] Age/Sex: 38 / F Adm Date: 3 Loc: Room: [address] [place] [address] Type: ADM IN Attending Dr: Christi Aquino MD Copies to: ~ ADDENDUM1 Upon re-evaluation in the afternoon, patient feels better and would like to go home. Prescribed pain medications as needed as directed. Advised to continue to follow up with [facility] staff concrete float maker. 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 Discussed with patient and her mother at bedside. All questions answered. She is in agreement and comfortable with discharge plan with these prescriptions. Addendum Documented By: Christi Aquino MD 03/29/23 1611 Addendum Signed By: <Electronically signed by Christi Aquino MD> 03/29/23 1611 Date of Service: 03/29/2023 Progress Narrative Note Intractable abdominal pain, possibly due to endometriosis rule out other etiologies PROGRESS NOTE Progress Note: Patient was seen and evaluated at bedside this morning. she was admitted overnight by overnight hospitalist. Refer to H&P for further details. She is requiring multiple IV pain medications. Still with abdominal pain mostly left sided. concrete float maker eval requested for further evaluation. 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 Afebrile here, no leukocytosis or obvious evidence of infectious process. Placed on Pain meds regimen IV and PO. Ongoing monitoringfor now. Documented By: Christi Aquino MD 03/29/23 11 32 Signed By: <Electronically signed by Christi Aquino MD> 03/29/23 1138 [facility] [facility] Work Phone: 1(207) 401-274510-17-2023 History and physical note Author Megan Muniz [facility] March 29, 2023 7:29am Note Date/Time March 29, 2023 7 :29am [facility] [address] [place] [address] Hospitalist H&P Signed Patient: Antonia Noyola MR#: [id number] : 1985 Acct:[id number] Age/Sex: 38 / F Adm Date: 3 Loc: Room: [address] [place] [address] Type: ADM IN Attending Dr: Christi Aquino [...] findings. The patient case was discussed with FITNESS TECHNICIAN, who was not convinced that left [...] Previous records in the computer system reviewed [facility] Medical History Anemia Endometriosis Surgical History [...] % (Auto) 42.8 % (.) 03/29/23 01:40 Haines % (Auto) 7.3 % (.) 03/29/23 01:40 Eos % (Auto) 1.8 % (.) 03/29/23 01:40 Baso % (Auto) 1.3 % (.) 03/29/23 01:40 Nucleat RBC Rel Count 0.1 /100 WBC (0-0.5) 03/29/23 01:40 Neut # (Auto) 3.5 x10E3/uL (1.8-7.7) 03/29/23 01:40 Lymph # (Auto) 3.2 x10E3/uL (1.00-4.8) 03/29/23 01:40 Haines # (Auto) 0.6 x10E3/uL (0.0-0.8) 03/29/23 01:40 [...] pH 7.5 (5.0-9.0) 03/29/23 02:53 Ur Specific Roscoe 1.003 (1.001-1.030) 03/29/23 02:53 Urine Protein Negative [...] she does have tachycardia We will consult FITNESS TECHNICIAN Check lactic acid 2. Microcytic iron [...] <Electronically signed by Megan Muniz MD> 03/29/23728 [facility] Work Phone: 1(856) 610-485108-02-2023 Evaluation note* Encounter Date Diagnosis Assessment Notes [...] relief. She would need to see an air defense specialist for this. She is agreeable to [...] I did recommend that she contact Dr. Catnu if this continues. Jan, Iron deficiency anemia (ICD-10 - D50.9) She voices that she has been craving ice so she is going to call and schedule an appointment to see Dr. Castillo again. [facility] Other 06-29-2023 Evaluation note* Encounter Date Diagnosis Assessment Notes Treatment Notes Treatment Clinical Notes Nov, Acute sinusitis (ICD-10 - J01.90) Nov, Cough (ICD-10 - R05.9) [facility] Other 05-01-2023 Evaluation note* Encounter Date Diagnosis [...] noted. Rx was called into [facility], spoke with Chad TOWNSEND, the Xanax 0.25 MG tablets are out of stock currently so her dose was increased to 0.5 MG and she was instructed to take 1/2 tablet q8-12 hours as needed. Only 12 tablets were called in. Pt voiced understanding when notified of this change. October, Other 3:17 PM - 3:23 PM [facility] Other 04-12-2023 Evaluation note* Encounter Date Diagnosis [...] Sep, Other 12:46 PM - 12:51 PM [facility] Other 01-30-2023 Evaluation note* Encounter Date Diagnosis Assessment Notes Treatment Notes Treatment Clinical Notes Jun, Anxiety (ICD-10 - F41.9) [facility] Other 01-30-2023 Evaluation note* Encounter Date Diagnosis [...] Side effects/risks/benefi ts of medication were reviewed. [facility] Other 12-21-2022 Evaluation note* Encounter Date Diagnosis [...] May, Other 3:27 PM - 3:32 PM [facility] Other 11-18-2022 Miscellaneous Notes* Telephone Encounter - Tabby Steele Ma - 04/30/2022 2:25 PM EST CMP if needed. Tabby Steele Ma documented [facility] Evaluation note* Encounter Date Diagnosis Assessment Notes Treatment Notes Treatment Clinical Notes Mar, Anxiety (ICD-10 - F41.9) [facility] Other 10-31-2022 Evaluation note* Encounter Date Diagnosis [...] done and then return to see her FITNESS TECHNICIAN at the [facility] because she feel she has another ovarian cyst. [facility] Other 10-28-2022 Miscellaneous Notes* Allied Health - [...] SIGNATURE: Stephenie Suh 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 PATIENT NAME: Antonia Noyola DATE: April 09, 2022 TIME: 2:21 PM PAGER/CONTACT #: documented in this encounterOhio[facility]10-03-2022 Miscellaneous Notes* Telephone Encounter - MARY Narvaez - 03/15/2022 12:04 PM EDT Patient appears on the First Time Treatment List for a non-oncology treatment. No psychosocial assessment is indicated. JANNA Narvaez documented in this encounterOhiohealth [facility]09-28-2022 NoteHNO ID: [id number] Author: Madyson Ni APRN.PIOTR Service: ? 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 She works 7 PM to [...] iron deficiency. Recent laboratories [place] [facility] October 04, 2020 show hemoglobin of 11.6 [...] and removal ovarian cyst (more content not included)...[facility]09-28-2022 History of Present illness Narrative* Madyson Ni APRN.GLASS BEVELLER - 03/10/2022 2:00 PM EDT Images from the original note were not included. 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 She works 7 PM to [...] iron deficiency. Recent laboratories from [facility] October 04, 2020 show hemoglobin of11.6 but [...] iron PAST MEDICAL HISTORY Diagnosis Date Anemia 2021 Endometriosis Fibroid Iron deficiency anemia due to [...] Hyperlipidemia Father Heart Father bypass surgery, stents, [place] Madyson Ni APRN.CNP [place], [place] CC: Dr. Jennifer Duran [address] [place] [address] I spent a total of 30 minutes on the date of the service which included preparing to see the patient, dvmb-yx-wzxf patient care, completing clinical documentation, obtaining and/or reviewing separately obtained history, performing a medically appropriate examination, counseling and educating the pat ient/family/caregiver, ordering medications, tests, or procedures, independently interpreting results (not separately reported), and communicating results to the patient/family/caregiver. documented in this encounterOhiohealth [facility]09-08-2022 Miscellaneous Notes* Telephone Encounter - Meaghan Ordonez - 02/18/2022 3:14 PM EDT Patient has an appt on 02/23. Would you like labs? documented in this encounterOhiohealth [facility]09-06-2022 Evaluation note* Encounter Date Diagnosis Assessment Notes Treatment Notes Treatment Clinical Notes Feb, Iron deficiency anemia (ICD-10 - D50.9) Feb, Elevated liver enzymes (ICD-10 - R74.8) [facility] [employer] Other 07-28-2022 Evaluation note* Encounter Date Diagnosis Assessment Notes Treatment Notes Treatment Clinical Notes Dec, Anxiety (ICD-10 - F41.9) [facility] Other 06-24-2022 Hospital Discharge instructions Patient Education [...] develop this condition: Playing sports that include ijcm-ee-kkxb contact with others. Having a skin condition [...] Follow these instructions at home: Medicines Take lvke-hdp-yphwcbt and prescription medicines only as told by [...] 06/20/2015 Document Revised: 07/10/2019 Document Reviewed: 06/21/2017 [employer] Patient Education 2020 [employer]. 12/04/2021 13:59:11 Sinusitis, Adult Sinusitis, Adult Sinusitis [...] at home: Medicines Take, use, or apply htpv-fip-somaejl and prescription medicines only as told by [...] and water are not available, use hand resident caregiver. Do not smoke. Avoid being around people [...] 05/30/2006 Document Revised: 10/30/2018 Document Reviewed: 10/30/2018 [employer] Patient Education 2020 [employer]. 12/04/2021 13:59:10 BMI for Adults BMI for [...] height. This can be done either in Jordanian ([place] or metric measurements. Note that charts are available to help you find your BMI quickly and easily without having to do these calculations yourself. To calculate your BMI in Jordanian ([place] measurements, your health care provider will: [...] medical problems. BMI can be measured using Jordanian measurements or metric measurements. To interpret your [...] 02/08/2005 Document Revised: 05/12/2018 Document Reviewed: 04/12/2018 [employer] Patient Education 2019 [employer]. [facility] 05-06-2022 Evaluation note* Encounter [...] October, Other 8:28 AM - 8:35 AM [facility] Other 03-01-2022 Evaluation note* Encounter Date Diagnosis Assessment Notes Treatment Notes Treatment Clinical Notes Aug, Cough (ICD-10 - R05) [facility] Other 02-21-2022 Evaluation note* Encounter Date Diagnosis [...] Jul, Other 5:43 PM - 5:48 PM [facility] Other 12-06-2021 Evaluation note* Encounter Date Diagnosis [...] voices that her employer will handle her FMLA paperwork. If she needs a note she [...] May, Other 4:25 PM - 4:38 PM [facility] Other 11-09-2021 Evaluation note* Encounter Date Diagnosis [...] R63.5) Her TSH is normal at 1.04. [facility] Other 10-07-2019 History general Narrative - Reported* Type Description Date Medical History endometriosis 2012 Medical History Echocardiogram [facility] Normal, ejection fraction 60-65% Medical History MRI Brain 03-21-19 [employer] [facility], Normal Medical History anxiety Medical History pneumonia 06/2019 Surgical History Cholecystectomy Surgical History gal bladder removed 2008 Surgical History ablation - endometri osis removed off ovaries Dr Lentz 2012 Surgical History ovarian torsion 2014 Surgical History MRI pelvis 2017 Surgical History ovarian cyst removed 06/2018 Hospitalization History see above [facility] Other Consult note Author Jameel Hatfield [facility] April 28, 2022 8:22am Note Date/Time April 28, 2022 8:22am [facility] [address] [place] [address] FITNESS TECHNICIAN Consult Note Signed Patient: Antonia Noyola MR#: [id number] : 1985 Acct:[id number] Age/Sex: 37 / F Adm Date: 2 Loc: Room: [address] [place] [address] Type: ADM INOo Attending Dr: Kiko Saenz DO Copies to: JAMEEL J PRINTY,MD DO Kiko Singh DO~ HPI Data of Consult Date of [...] Last Admin: 04/28/22 04:43 Dose: 10 ml [employer] - Exam Physical Exam Vital signs: Temp 97.7 F 04/28/22 04:18 Pulse 95 H 04/28/22 04:18 Resp 16 04/28/22 04:18 BP 136/95 04/28/22 04:18 Pulse Ox 100 04/28/22 04:18 O2 Del Method Room Air 04/28/22 04:18 Constitutional Constitutional: no acute distress Routine Respiratory Exam Respiratory: Absent respiratory distress Routine Abdominal Exam Abdominal: Present soft, normoactive bowel sounds and tenderness; Absent reboundor guarding [employer] - Results Laboratory Results - Last 48 hrs. 04/28/22 02:00: Urine Color Yellow, Urine Appearance Cloudy A, Urine pH 6.5, Ur Specific Roscoe 1.005, Urine Protein Negative, Urine Glucose (UA) [...] Creatinine Clear 132.36, Sodium 137, Potassium 3.7, Tckthayy301, Carbon Dioxide 21.1 L, Anion Gap 14.6, [...] % (Auto) 64.6, Lymph % (Auto) 28.9, Haines % (Auto) 4.5, Eos % (Auto) 1.0, Baso % (Auto) 1.0, Neut # (Auto) 5.1, Lymph # (Auto) 2.3, Haines # (Auto) 0.4, Eos # (Auto) 0.1, Baso # (Auto) 0.1, Nucleated RBC % (auto) 0.0, Platelet Estimate Normal, Plt Morphology Comment Normal, RBC Morphology N/A, Polychromasia Slight, Hypochromasia Slight, Poikilocytosis Moderate, Anisocytosis Marked, Tear Drop Cells Slight, Ovalocytes Moderate [employer] - A/P (1) Intractable abdominal pain: Code(s): [...] And I suggested she follow-up with her pastry supervisor at the [facility]. Code(s): N83.202 - Unspecified ovarian cyst, left side Status: Acute Documented By: JAMEEL HATFIELD MD 04/28/22816 Signed By: <Electronically signed by MD JAMEEL HATFIELD> 04/28/22821 [facility] Work Phone: Evaluation + Plan note No data available for this section [facility] Care Evaluation noteNo assessment information available [facility] Work Phone: Evaluation noteNo InformationNortConemaugh Nason Medical Center [employer] Other Evaluation note* Diagnosis Iron deficiency anemia due to chronic blood loss- Primary Iron deficiency anemia secondary to blood loss (chronic) documented in this encounter [facility] note* Diagnosis 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 documented in this encounter [facility] note* Diagnosis 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 Cyst of left ovary Other and unspecified ovarian cyst documented in this encounter [facility]* Diagnosis 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 Cyst of left ovary Other and unspecified ovarian cyst documented in this encounter [facility] note* Diagnosis Iron deficiency anemia due to chronic blood loss- Primary Iron deficiency anemia secondary to blood loss (chronic) documented in this encounter [facility] note* Diagnosis Onset Date Resolution Status Abdominal pain acute Ovarian cyst acute [facility] Work Phone: Evaluation note* Diagnosis Onset Date Resolution Status Abdominal pain acute Endometriosis acute Ovarian cyst [facility] Work Phone: Evaluation note* Author Jennifer Duran [facility] Authored July 28, 2023 12:18pm The above note written by __ _Polly Collado____ acting as human recorder, note dictated by Dr. Mcfadden .I performed the above HPI, ROS, and Examination. I formulated and dictated the treatment plan and was present for entire encounter. Jennifer Duran D.O. [facility] Work Phone: Evaluation note* Diagnosis Toothache- Primary Unspecified disorder of the teeth and supporting structures documented in this encounter [facility] note* Diagnosis Onset Date Resolution Status Anxiety acute Tachycardia [facility] Work Phone: Evaluation note* Diagnosis Cyst of left ovary- Primary Other and unspecified ovarian cyst documented in this encounter [facility] note* Diagnosis Lower abdominal pain Abdominal pain, other specified site documented in this encounter [facility] note* Diagnosis Pelvic pain- Primary Unspecified symptom associated with female genital organs documented in this encounter [facility] note* Diagnosis RLQ abdominal pain- Primary Abdominal pain, right lower quadrant Pelvic joint pain, right documented in this encounter [facility] note* Diagnosis Abdominal pain, right lower quadrant- Primary documented in this encounter [facility] note* Diagnosis Generalized abdominal pain- Primary Abdominal pain, generalized documented in this encounter [facility] note* Diagnosis Pelvic and perineal pain- Primary Unspecified symptom associated with female genital organs Endometriosis Endometriosis, site unspecified Ovarian remnant syndrome Other noninflammatory disorder of ovary, fallopian tube, and broad ligament documented in this encounter [facility] note* Diagnosis Chronic pelvic pain in female- Primary Unspecified symptom associated with female genital organs Right lower quadrant abdominal pain Abdominal pain, right lower quadrant documented in this encounter [facility] note* Diagnosis Encounter for chronic pain management- Primary documented in this encounter [facility] Additional Instructions Please arrange a follow-up appointment with your [facility] pastry supervisor.[facility] Work Phone: Hospital Discharge instructions Additional Instructions Take Motrin and Tylenol as needed for mild to moderate pain. Take oxycodone as prescribed for severe pain. Follow-up with Dr. Ness or Dr. Grayson in the office regarding further treatment with a GnRH antagonistUniversity [facility]als [facility] Work Phone: Hospital Discharge instructions Additional Instructions Take [place] as needed for severe pain, do not drink, drive, operate heavy machinery while taking Continue clindamycin as previously ordered by her dentist Return to emergency room for fever or chills, or dental abscess Follow-up with dentist and oral surgeon as scheduledUniversity [facility] Work Phone: Hospital Discharge instructionsAmbulatory Orders* Referral to Allergy/Immunology Time Frame: 12/07/23, Location: None Selected [facility] Work Phone: Hospital Discharge instructions* Attachments The following attachments cannot be sent through Care Everywhere. * Pelvic Pain (Jordanian) [facility]* Attachments The following attachments cannot be sent through Care Everywhere. * Endometriosis (Jordanian) * Pelvic Pain (Jordanian) documented [facility] this [facility]* Attachments The following attachments cannot be sent through Care Everywhere. * Abdominal Pain (Jordanian) documented in this encounterBon Doctors HospitalInstructionsNot on file documented in this encounterProSelect Medical [facility] SystemInstructionsNot on file documented in this encounterProtestant Deaconess Hospital SystemInstructionsNot on file documented in this encounterProSelect Medical [facility] SystemProgress note No data available for this section [facility] Reason for referral (narrative)* Consultation (Routine) - New Request Specialty Diagnoses / Procedures Referred By Gina perez Referred To Contact Multispecialty Diagnoses RLQ abdominal pain Pelvic joint pain, right FrankDavi, DO [address] [id number] Referral ID Status Reason Start Date Expiration Date V isits Requested Visits Authorized [id number] New Request 03/03/2024 03/28/2025 1 1 * Consultation (Routine) - New Request Specialty Diagnoses / Procedures Referred By Gina perez Referred To Contact FITNESS TECHNICIAN Diagnoses RLQ abdominal pain Pelvic joint pain, right Frank, Davi Lacy, DO [address] [place] [address] Isabell Hodges, DO [address] [place] [address] Referral ID Status Reason Start Date Expiration Date V isits Requested Visits Authorized [id number] New Request 03/03/2024 03/28/2025 1 1 [facility] Summary Purpose Family History Relationship Condition [...] Referred By Gina t Referred To Contact Procedures ECG Jennifer Moore MD [address] [place] [id number] Referral ID Status Reason Start Date Expiration Date V isits Requested Visits Authorized [id number] New Request 02/16/2024 03/12/2025 1 1 Reason appt pt is brent rosenbaum to see whomever can see her first pt needs consult to discuss possible injection for right sided bursitis Diagnosis 1 Greater trochanteric bursitis of right hip (M70.61) Referral Organization [facility] Family Medicin e Ale Referring Provider First Name Jennifer Referring Provider Last Name Wilber Referring Provider Specialty Family Prac kasi Referred Organization [facility] Referred Provider Chad Luna II Referred Address [address] [facility] [place],[address] Referred Provider Specialty Orthopedic S urgery Referral Priority Routine General Notes TrevinoLoulouh 01/12/2023 03:51:47 PM > referral sent p2p. pt understands that she will be contacted to schedule this appt. Reason appt consult for e zia and treatment of continued cough since covid infection Diagnosis 1 Cough (R05) Referral Organization [facility] Family [facility] [place] Referring Provider First Name Jennifer Referring Provider Last Name Wilber Referring Provider Specialty Family Prac kasi Referred Organization Unknown Facility Referred Provider Steve Donald Referred Provider Specialty Pulmonary Di seases Referral Priority Routine General Notes Loulou Trevinoh 08/11/2021 01:41:41 PM > referral faxed with [...] section and content) DATE CREATED AUTHOR 08/08/2020 [facility] [employer] [facility] DATE CREATED AUTHOR AUTHOR'S ORGANIZ ATION 05/03/2022 [facility] DATE CREATED AUTHOR AUTHOR'S ORGANIZ ATION 10/19/2022 [facility] DATE CREATED AUTHOR AUTHOR'S ORGANIZ ATION 06/23/2023 [facility] DATE CREATED AUTHOR AUTHOR'S ORGANIZ ATION 09/06/2023 [facility] DATE CREATED AUTHOR AUTHOR'S ORGANIZ ATION 10/21/2023 [facility] DATE CREATED AUTHOR AUTHOR'S ORGANIZ ATION 11/27/2023 [facility] DATE CREATED AUTHOR AUTHOR'S ORGANIZ ATION 03/30/2024 [facility] DATE CREATED AUTHOR AUTHOR'S ORGANIZ ATION 06/11/2024 [facility] DATE CREATED AUTHOR AUTHOR'S ORGANIZ ATION 06/28/2024 [facility] DATE CREATED AUTHOR AUTHOR'S ORGANIZ ATION 07/01/2024 [facility] [place] Center DATE CREATED AUTHOR AUTHOR'S ORGANIZ ATION 07/14/2024 [facility] DATE CREATED AUTHOR AUTHOR'S ORGANIZ ATION 07/17/2024 [facility] DATE CREATED AUTHOR AUTHOR'S ORGANIZ ATION 07/30/2024 [facility] DATE CREATED AUTHOR AUTHOR'S ORGANIZ ATION 08/03/2024 [facility] DATE CREATED AUTHOR AUTHOR'S ORGANIZ ATION 08/03/2024 [facility] DATE CREATED AUTHOR AUTHOR'S ORGANIZ ATION 08/04/2024 [facility] DATE CREATED AUTHOR AUTHOR'S ORGANIZ ATION 08/08/2024 [facility] [place] [facility] ical Center Care Teams (unrecognized sec tion and [...] Active Amaury Barlow DO Emergency Provider Active Television Journalist Relationship Specialty Start Date End Date Jennifer Duran, DO [address] [place] [address] PCP - General 11/27/07 Jennifer Duran, DO [address] [place] [address] Referring Family Practice 04/03/19 Avinash Velásquez MD [address] [place] [phone] Referring FITNESS TECHNICIAN 11/30/21 Television Journalist Relationship Specialty Start Date End Date Jennifer Duran, DO [address] [place] [address] PCP - General 11/27/07 Jennifer Duran, DO [address] [place] [address] Referring Family Medicine 04/03/19 Avinash Velásquez MD [address] [place] [address] Referring FITNESS TECHNICIAN 11/30/21 Television Journalist Relationship Specialty Start Date End Date Jennifer Duran, DO [address] [place] [address] PCP - General 11/27/07 Jennifer Duran, DO [address] [place] [address] Referring Family Medicine 04/03/19 Avinash Velásquez MD [address] [place] [phone] Referring FITNESS TECHNICIAN 11/30/21 Television Journalist Relationship Specialty Start Date End Date Jennifer Duran, DO [address] [place] [address] PCP - General 11/27/07 Jennifer Duran, DO [address] [place] [address] Referring Family Medicine 04/03/19 Avinash Velásquez MD [address] [place] [address] Referring FITNESS TECHNICIAN 11/30/21 Television Journalist Relationship Specialty Start Date End Date Jennifer Duran, DO [address] [place] [address] PCP - General 11/27/07 Jennifer Duran, DO [address] [place] [address] Referring Family Medicine 04/03/19 Avinash Velásquez MD [address] [place] [address] Referring FITNESS TECHNICIAN 11/30/21 Television Journalist Relationship Specialty Start Date End Date Jennifer Duran, DO [address] [place] [address] PCP - General 11/27/07 Jennifer Duran, DO [address] [place] [address] Referring Family Medicine 04/03/19 Avinash Velásquez MD [address] [place] [id number] Referring FITNESS TECHNICIAN 11/30/21 Team Status: Active Member Role Status Dates Jennifer Duran DO Primary Care Provider Active Yevgeniy Cabrera Jr, MD Emergency Provider Active Kiko Saenz DO Admit Provider, Attending Provider Active Television Journalist Relationship Specialty Start Date End Date Jennifer Duran, DO [address] [place] [id number] PCP - General 11/27/07 Jennifer Duran, DO [address] [place] [address] Referring Family Medicine 04/03/19 Avinash Velásquez MD [address] [place] [address] Referring FITNESS TECHNICIAN 11/30/21 Team Status: Inactive Member Role [...] October 18, 2023 End: October 18, 2023 Television Journalist Relationship Specialty Start Date End Date EnochJennifer oviedo [address] [facility] [place] [address] PCP - General Family Medicine 09/14/23 Team [...] March 23, 2024 End: March 23, 2024 Television Journalist Relationship Specialty Start Date End Date No Pcp, [place] [address] PCP - General Family Medicine 06/05/24 Television Journalist Relationship Specialty Start Date End Date No Pcp, [place] [address] PCP - General Family Medicine 06/05/24 Goals [...] this section No data available for this sectionNot on filedocumented as of this encounter No [...] SUCROSE INJECTION PER 1 MG Madyson Ni, CAT[facility] [address] [place] [address] Johny Treat [place] [address] [place] [address] Referral ID Status Reason Start Date Expiration Date V isits Requested Visits Authorized [id number] Authorized 03/10/2022 06/12/2022 99 99 Reason Comments [...] and diarrhea. Patient denies urinary symptoms. Reason Onset Date Comments abnormal CT 06/09/2024 Reason Onset Date Comments Appointment 06/11/2024 Reason Comments Abdominal Pain Right lower abdomina l pain that radiates to back that began last night. Denies urinary symptoms and NVD. Reason Comments Abdominal Pain Right sided lower ab dominal pain ongoing for a couple of days, no vomiting or diarrhea. Reason Comments Abdominal Pain Pt. Complains of Rt. Lower abd pain that started a week ago. 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 Pain 01/20. Reason Comments Abdominal Pain Pt here for RLQ abd pain. Pt states this is a chronic pain and taking tramadol and toradol, last dose 5p. Report ovarian remnant syndrome. See Car Groomer in [place] Reason Comments Abdominal Pain Pt presents to the [facility] with complaints of abd pain that began 2 days ago Source Comments (unrecognize d section and content) In the event this informatio n is protected by the Federal Confidentiality of Alcohol and Drug Abuse Patient Records regulations: The Federal rules restrict any use of the information to criminally investigate or prosecute any alcohol or drug abuse patient.[facility] the event this information is protected by the Federal Confidentiality of Alcohol and Drug Abuse Patient Records regulations: The Federal rules restrict any use of the information to criminally investigate or prosecute any alcohol or drug abuse patient.[facility] the event this information is protected by the Federal Confidentiality of Alcohol and Drug Abuse Patient Records regulations: The Federal rules restrict any use of the information to criminally investigate or prosecute any alcohol or drug abuse patient.[facility] the event this information is protected by the Federal Confidentiality of Alcohol and Drug Abuse Patient Records regulations: The Federal rules restrict any use of the information to criminally investigate or prosecute any alcohol or drug abuse patient.[facility] the event this information is protected by the Federal Confidentiality of Alcohol and Drug Abuse Patient Records regulations: The Federal rules restrict any use of the information to criminally investigate or prosecute any alcohol or drug abuse patient.[facility] the event this information is protected by the Federal Confidentiality of Alcohol and Drug Abuse Patient Records regulations: The Federal rules restrict any use of the information to criminally investigate or prosecute any alcohol or drug abuse patient.[facility] the event this information is protected by the Federal Confidentiality of Alcohol and Drug Abuse Patient Records regulations: The Federal rules restrict any use of the information to criminally investigate or prosecute any alcohol or drug abuse patient.[facility] Ordered Prescriptions (unrec ognized section and [...] Amount: 200 mg 12 tablet 01/22/2024 01/25/2024 Prescription Sig Dispensed Refills Start Date End Da te cyclobenzaprine (FLEXERIL) 10 MG tablet Take 1 tablet by mouth 3 times daily as needed for Muscle spasms 21 tablet 07/12/2024 07/22/2024 Scheduled Active and Recently Administ ered Medications [...] 1357 (Given - Provid er: Nimo De Lo sSantos RN) fentaNYL (SUBLIMAZE) injection 50 mcg (COMPLETED) 50 mcg, IntraVENous, ONCE, 1 dose, On Tue06/27/24 at 1500, If oral and IV narcotics ordered, use oral first and only use IV if oral is ineffective or cannot take oral. Do Not give oral and IV within 1 hour of each other unless specifically ordered. 1454 (Given - Provid er: Nimo De Los Santos RN) Scheduled Medication Order 07/10/2024 07/11/2024 07/12/2024 diazePAM (VALIUM) tablet 5 mg (COMPLETED) 5 mg, Oral, ONCE, 1 dose, On Obdulia 07/12/24 at 0145 0147 (Given - Provid er: Silva Kelly RN) hydrocodone-acetaminophen (NORCO) tablet 5-325 mg (STARTER PACK) This order is for a take home starter pack of medication. Please document Furnish to patient on the AUG. 0147 ([facility]: Silva Kelly RN) Scheduled Medication Order 07/12/2024 07/13/2024 07/14/2024 diphenhydrAMINE (BENADRYL) injection 25 mg (COMPLETED) 25 mg, Intravenous, ONCE, 1 dose, On 07/14/24 at 1900 1842 (Given - Provid er: Matthew Murphy RN) HYDROmorphone (DILAUDID) injection 1 mg (COMPLETED) 1 mg, Intravenous, ONCE, 1 dose, On 07/14/24 at 1830 1843 (Given - Provid er: Matthew Murphy RN) Metoclopramide (REGLAN) injection 10 mg (COMPLETED) 10 mg, Intravenous, ONCE, 1 dose, On 07/14/24 at 1830 1843 (Given - Provid er: Matthew Murphy RN) Scheduled Medication Order 07/27/2024 07/28/2024 07/29/2024 nalbuphine (NUBAIN) injection 5 mg (COMPLETED) 5 mg, IntraMUSCular, Once, 1 dose, On 07/29/24 at 1930 1945 (Given - Provid er: Sandra Covarrubias RN) FOR RECORDS PERTAINING TO PATIENTS WHO [...] BE BASED ON THE PRIMARY CLINICAL RECORDS. [facility]. provides no warranty or guarantee of the accuracy or completeness of information in this document.
[2024-08-11 03:14] VITALS: BP 134/88; PULSE 88; TEMP 36.7; O2SAT 100; BMI 30.8
--- NOTE | 2024-08-11 03:33 | ED.ABDPAIN1 ---
HPI - Abdominal Pain General Chief Complaint: Abdominal Pain Stated Complaint: abd pain Time Seen by Provider: 08/11/24 03:05 Source: patient Mode of arrival: walk-in Limitations: no limitations History of Present Illness HPI narrative: Patient is 39 years old female who already had a history of hysterectomy and oophorectomy after she was diagnosed with endometriosis, coming to ER for the second time within few days with right lower quadrant pain, the first time that she was evaluated the patient mentioned that she was just evaluated another hospital the day before with a CAT scan ruling out appendicitis, and she think this 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 Patient is coming today again complaining of right lower quadrant pain, saying that she could not get into pain management because they refused her diagnosis The patient already took Toradol and it did not help Related Data Home Medications ?Medication ?Instructions ?Recorded ?Confirmed alprazolam 0.25 mg tablet 0.25 mg PO Q8H PRN anxiety 09/20/23 08/11/24 citalopram 20 mg tablet (Celexa) 20 mg PO DAILY 09/20/23 08/11/24 atenolol 25 mg tablet 25 mg PO Q24H 02/11/24 08/11/24 acetaminophen 500 mg tablet 500 mg PO Q6H PRN pain 07/09/24 08/11/24 gabapentin 300 mg capsule 300 mg PO TID 07/09/24 08/11/24 ibuprofen 800 mg tablet 800 mg PO Q8H PRN pain 07/09/24 08/11/24 Previous Rx's ?Medication ?Instructions ?Recorded ketorolac 10 mg tablet 10 mg PO TID PRN pain #10 tabs 10/22/23 ondansetron 4 mg disintegrating 4 mg PO DAILY PRN nausea and 06/27/24 tablet vomiting #15 tabs Allergies Allergy/AdvReac Type Severity Reaction Status Date / Time morphine Allergy Severe itching Verified 08/11/24 03:19 prochlorperazine (From AdvReac Mild Anxiety Verified 08/11/24 03:19 Compazine) Review of Systems ROS Status of ROS 10 or more systems reviewed and unremarkable except as noted in history and below [facility] Medical History Ovarian cyst ?N83.209 - Unspecified ovarian cyst, unspecified side (ICD-10) Endometriosis ?N80.9 - Endometriosis, unspecified (ICD-10) LLQ abdominal pain ?R10.32 - Left lower quadrant pain (ICD-10) Complex cyst of left ovary ?N83.292 - Other ovarian cyst, left side (ICD-10) Toothache ?K08.89 - Other specified disorders of teeth and supporting structures (ICD-10) Surgical History History of removal of cyst ?Z98.890 - Other specified postprocedural states (ICD-10) History of cholecystectomy ?Z90.49 - Acquired absence of other specified parts of digestive tract (ICD-10) Family History Family/Other No problems noted. Father Family history of CHF (congestive heart failure) Family history of COPD (chronic obstructive pulmonary disease) Family history of diabetes mellitus Family history of hypertension Family history of myocardial infarction Mother Family history of hypertension Other Family history of cancer Social History Within the past year, how often did you have a drink containing alcohol: monthly or less Within the past year, how many standard drinks containing alcohol did you have on a typical day: 1 or 2 Within the past year, how often did you have six or more drinks on one occasion: never Total score: 0 Score interpretation: A score less than 3 is consistent with normal alcohol consumption. Smoking status: Never smoker Non-prescribed substance use: denies use Highest level of school completed/degree received: Associate degree: academic program Are you now , , , , never or living with a partner: In a typical week, how many times do you talk on the telephone with family, friends, or neighbors: 3 or more times per week How often do you get together with friends or relatives: 3 or more times per week Little interest or pleasure in doing things: not at all Feeling down, depressed, or hopeless: not at all Feel stressed/tense/nervous/anxious/difficulty sleeping: not at all Do you think of yourself as: straight/heterosexual Gender Identity: female Exam Narrative Exam Narrative: I was about to examine the patient and evaluate her , when the patient asked what I would give her for pain and I did explain to her that right now with the fact that she was evaluated here almost few days ago for similar pain I would need further evaluation with a CAT scan and blood workup The patient does not want any evaluation in the ER except for pain control Constitutional Vital Signs, click to edit/add: Last Vital Signs Temp 98.1 F 08/11/24 03:14 Pulse 88 08/11/24 03:14 Resp 18 08/11/24 03:14 BP 134/88 08/11/24 03:14 Pulse Ox 100 08/11/24 03:14 O2 Del Method Room Air 08/11/24 03:14 Course Vital Signs Vital signs: Vital Signs Temperature 98.1 F 08/11/24 03:14 Pulse Rate 88 08/11/24 03:14 Respiratory Rate 18 08/11/24 03:14 Blood Pressure 134/88 08/11/24 03:14 Pulse Oximetry 100 08/11/24 03:14 Oxygen Delivery Method Room Air 08/11/24 03:14 Temperature 98.1 F 08/11/24 03:14 Pulse Rate 88 08/11/24 03:14 Respiratory Rate 18 08/11/24 03:14 Blood Pressure 134/88 08/11/24 03:14 Pulse Oximetry 100 08/11/24 03:14 Oxygen Delivery Method Room Air 08/11/24 03:14 MDM - Abdominal Pain MDM Narrative Medical decision making narrative: The patient did not want any evaluation in ED or blood workup or any CAT scan or any active evaluation She also asked about what kind of pain medication she could get if she get evaluated, I did explain to her Toradol and Bentyl Patient just want pain medication, and specifically Dilaudid, This happened the last time the patient was here as she also mentioned that she just had a workup the day before another facility ruling out appendicitis, I did explain to the patient that right now without proper evaluation I would not be able to evaluate her pain I did also explain to the patient that her presentation multiple times to the ER asking only for pain medication without any workup done is also inappropriate as the patient does not want any evaluation in the ER-----I did explain to her that she would not be provided with pain medication and she would just be discharged to follow-up with her pain management as outpatient Patient mentioned that she was not accepted in pain management in one of the hospital I did explain to her that she need to seek pain management in another facility in case needed. 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 Patient walked out to the ER as soon as she was told that she will not be given any pain medication and she would just be discharged before she was given any paperwork Discharge Plan Discharge Chief Complaint: Abdominal Pain Clinical Impression: Pain Patient Disposition: Home, Self-Care Time of Disposition Decision: 03:36 Condition: Good Prescriptions / Home Meds: No Action ketorolac 10 mg tablet 10 mg PO TID PRN (Reason: pain) Qty: 10 0RF ondansetron 4 mg tablet,disintegrating 4 mg PO DAILY PRN (Reason: nausea and vomiting) Qty: 15 0RF ibuprofen 800 mg tablet 800 mg PO Q8H PRN (Reason: pain) acetaminophen 500 mg tablet 500 mg PO Q6H PRN (Reason: pain) gabapentin 300 mg capsule 300 mg PO TID alprazolam 0.25 mg tablet 0.25 mg PO Q8H PRN (Reason: anxiety) citalopram [Celexa] 20 mg tablet 20 mg PO DAILY atenolol 25 mg tablet 25 mg PO Q24H Print Language: Israeli Instructions: Pain Management (ED) Referrals: Physician,Non-Staff, MD [Primary Care Provider] - 1 week
== END 2024-08-11 03:40 | disposition home or self-care (01) ==
PROVIDERS: Emergency Provider Emergency Medicine
DX: R10.31 Right lower quadrant pain (principal); Z90.710 Acquired absence of both cervix and uterus; Z90.721 Acquired absence of ovaries, unilateral; Z90.49 Acquired absence of other specified parts of digestive tract
CPT/HCPCS: 99281

== ENCOUNTER 2025-02-18 01:34 | Emergency (ER) | payer BC, SELFPAY ==
[2025-02-18 01:36] VITALS: BP 143/92; PULSE 109; TEMP 36.6; O2SAT 98; BMI 30.8
--- OUTSIDE RECORDS SUMMARY | 2025-02-18 01:42 | XMS_ITS | CCD ---
Author Organization [facility] Care Team Providers Care Institutional Commodity Analyst Name Role Phone DO Jennifer Duran Primary Care Provider [phone] DO Augustus Santiago Attending Provider DO Amaury Barlow Emergency Provider [phone] Jennifer Duran Primary Care Physician Jennifer Duran Unavailable DO Jennifer Duran Primary Care Provider DO Jennifer Duran Attending Provider Jennifer Duran DO Primary Care Provider Jennifer Duran DO Unavailable Didier BARNETT, Penola P Unavailable [phone] Jennifer Duran DO Primary Care Provider Jennifer Duran DO Unavailable DO Jennifer Duran Primary Care Provider [phone] DO Jennifer Duran Attending Provider [phone] MD Yevgeniy Cabrera Jr Emergency Provider DO Kiko Saenz Admit Provider DO Kiko Saenz Attending Provider Jennifer Duran DO Primary Care Provider Jennifer Duran DO Unavailable Didier BARNETT, Penola P Unavailable [phone] JENNIFER DURAN Primary Care Unavailable MADYSON [...] Care Provider DO Elier Jackson Emergency Provider [phone] DO Sarah Childress Emergency Provider UnaMD Megan Gongora Admit Provider [phone] MD Megan Muniz Attending Provider [phone] DO Kiko Saenz Other Provider MD Christi Aquino Attending Provider DO Jaime Aleman Attending Provider [phone] [facility], GENERIC Primary Care Physician Unavailab DO Jennifer Rm Primary Care Provider [phone] DO Elier bacon Emergency Provider DO Jaime Aleman Attending Provider [phone] DO Sarah Childress Emergency Provider UnaMD Megan Gongora Admit Provider [phone] MD Christi Aquino Attending Provider [phone] DO Kiko Saenz Other Provider NO FAMILY, PHYSICIAN Primary Care Provider Unava ilable MD MCKINLEY, EVGENY Attending Unavailable JENNIFER DURAN Primary Care Unavailable DO Elier bacon Emergency Provider [phone] NONE, XXXX Primary Care Physician Unavailab DESTINI Sheehan Attending Unavailable TARUN BRADEN Attending Unavailable Jennifer Duran DO Primary Care Provider Unavail able DO Jennifer Duran Primary Care Provider [phone] CATY Corbett Emergency Provider [phone] DO Jennifer Duran Attending Provider Jennifer Duran Primary Care Unavailable Megan Muniz Admitting Unavailable Kiko Saenz Consulting Unavailable Christi Aquino Attending Unavailable Faggionato, Imani M Admitting Unavailable Girivelisse, Jennifer Primary Care Unavailable Aric, Imani M Attending Unavailable Tupa, Elier M Attending Unavailable Tuarleen, Elier M Admitting Unavailable NO FAMILY, PHYSICIAN Primary Care Unavailable Girivelisse, Jennifer Primary Care Unavailable Sarah Childress M Attending Unavailable Sarah Childress Admitting Unavailable Girivelisse, Jennifer Primary Care Unavailable Girivelisse, Jennifer Attending Unavailable Girvin, Jennifer Admitting Unavailable Girvin, Jennifer Primary Care Unavailable [facility], Jaime P Attending Unavailable Kuns [facility], Jaime P Admitting Unavailable Tupa, Elier M Attending Unavailable Girivelisse, Jennifer Primary [...] NO PCP Primary Care Unavailable Ritesh Heath SEbenezer Attending Unavailable Konstantin Penny Attending Unavailable Ivana Ritesh SEbenezer Attending Unavailable Jignesh Dumont Attending Unavailable Ivana, Ritesh SEbenezer Attending Unavailable DO Jordyn Willett Attending Unavailable Ivana, Ritesh SEbenezer Attending Unavailable Provider, None Primary Care Unavailable [place]g K Attending Unavailable Provider, None Primary Care Unavailable [place] K Attending Unavailable Provider, None Primary Care Unavailable Jasmyn Magana Attending Unavailable Provider, None Primary Care Unavailable Gustavo Lara Attending Unavailab Gustavo Garcia Admitting Unavailab SHALONDA Reyes Attending Unavailable RANDEE RICHARDSON Attending Unavailable JENNIFER DURAN C Primary Care Unavailable EREN CAMEJO Attending Unavailable ROSE HARDY Attending Unavailable ROSE HARDY Attending Unavailable JENNIFER DURAN C Primary Care Unavailable EREN CAMEJO Attending Unavailable JENNIFER MOORE Attending Unavailable KONSTANTIN JAIN Attending Unavailable ASHLEY DELCID Attending Unavailable DAVI RIVAS Attending Unavailable DONYA ROMANO Attending Unavailable Brielle, Neha H Attending Unavailable Jordyn Willett Attending Unavailable Dimitri Vuong Attending Unavailable Brielle, Neha Valenzuela Attending Unavailable Yevgeniy, Dimitri Attending Unavailable Jignesh Dumont Attending Unavailable Jignesh Dumont Attending Unavailable No Pcp, No Pcp Primary Care Provider Unavailabl e NO PCP, NO PCP Primary Care Unavailable GUSTAVO DAVIES Attending Unavailab le NEVERAUSKADebbie, GUSTAVO Hair Attending Unavailab le NEVERAUSKADebbie, GUSTAVO P Referring Unavailab le NO PCP, [...] Primary Care Unavailable JIMENA ARANA Attending Unavailable NO PCP, NO PCP Primary Care Unavailable CHAD WILSON Attending Unavailable NO PCP, NO PCP Primary Care Unavailable SARAH LYNN Attending Unavailable NO PCP, NO PCP Primary Care Unavailable ROSE WILSON Attending Unavailable NO PCP, NO PCP Primary Care Unavailable SARAH LYNN Attending Unavailable Angeles Ellsworth Attending Unav ailable Allergies Allergy Classification Reported Allergen(s) Allergy Type Date of Onset Reaction(s) Facility (20 sources) Morphine; Translations: [MORPHINE] Drug Allergy 06-20-19 Other: See Comments, Itching (finding), Itching, Hives [facility] (19 sources) Atenolol Drug Allergy 04-18-[address] Cantu/ [facility] (6 sources) seasoninig Propensity to adverse reactions Unknown [facility] Other (1 source) Morphine Drug Allergy 07-28-19 23 [facility] (19 sources) Seasonal allergy Propensity to adverse reactions 04-18-20 23 Unknown, [facility] (20 sources) Prochlorperazine; Translations: [prochlorperazine ] Drug Allergy 05-25-20 Feeling nervous (finding), Anxiety [facility] (1 source) Morphine Drug Allergy 04-30-[address] [facility] (4 sources) Atenolol Propensity to adverse reactions to drug 04-18-20 [facility] (4 sources) Phenothiazine Propensity to adverse reactions to drug 05-25-20 Anxiety, Itching [facility] (4 sources) Octacosanol Propensity to adverse reactions to drug 04-18-20 [facility] (5 sources) No Known Medication Allergies; Translations: [No Known Medication Allergies] Propensity to adverse reactions (disorder) [facility] Repository Medications Current Medications Medication Drug Class(es) Dates Sig (Normalized) Sig (Original) acetaminophen 500 mg oral tablet (6 sources) Start: 04-06-2024 take 2 tablets by [...] by mouth every four to six hours as needed for pain Hydrocodone-Acetaminophen 5-325 mg tablet Discontinued 1 TAB PO EVERY 4-6 HOURS as needed for pain 12 November 08, 2023 January 19, 2024 11:18am Start: 09-14-2021 End: 04-28-2022 take 1 tablet by mouth three times daily as needed for pain Hydrocodone-Acetaminophen 5-325 mg tablet Discontinued 1 TAB PO Three times daily as needed for pain 9 September 14, 2021 April 28, 2022 1:50am acetaminophen 325 mg / oxyCODONE hydrochloride 5 mg oral tablet (20 sources) Opioid Agonist Start: 09-28-2024 End: 10-03-2024 take 1 tablet by mouth every eight hours as needed for pain, then take 3 tablets by mouth once daily as needed for pain oxyCODONE-acetaminophen (PERCOCET) 5-325 mg per tablet Indications: Abdominal pain, unspecified abdominal location Take 1 tablet by mouth every 8 (eight) hours as needed for pain for up to 5 days. 3 Day Supply Max Daily Amount: 3 tablets 15 tablet 09/28/2024 10/03/2024 Active Start: 06-25-2024 End: 06-28-2024 Percocet 5 mg-325 mg oral ta blet 1 tab(s), Oral, q8hr for 3 day(s), 9 tab(s), Refill(s) 0, [facility] #[id number], 165, cm, 06/24/24 19:33:00 EST, Height/Length [...] for 3 day(s), 12 tab(s), Refill(s) 0, [facility] #[id number], 165.1, cm, 07/31/23 15:42:00 EST, Height/Length Dosing, 82.9, kg, 07/31/23 15:42:00 EST, Weight Dosing Start Date: 07/31/23 Stop Date: 08/03/23 Status: Ordered Start: 03-29-2023 End: 04-30-2023 take 1 tablet by mouth every eight hours as needed for pain Oxycodone-Acetaminophen (Endocet) 5-325 mg tablet Discontinued 1 TAB PO Q8H as needed for pain 30 12March 29, 2023 April 30, 2023 6:33pm Start: 02-06-2023 End: 03-29-2023 take 1 tablet by mouth every four to six hours as needed for pain Oxycodone-Acetaminophen (Percocet) 5-325 mg tablet Discontinued 1 TAB PO EVERY 4-6 HOURS as needed for Pain 03 18February 06, 2023 March 29, 2023 1:48am amoxicillin 80 mg/ml oral suspension (1 source) Penicillin-class Antibacterial Start: 12-04-2021 End: 12-14-2021 take 1000 mg by mouth every twelve hours amoxicillin 400 mg/5 mL Oral Liq 1,000 mg = 12.5 mL, Oral, q12hr, X 10 day(s), # 250 mL, Refills(s) 0, Pharmacy: [facility]/pharmacy #[id number], 166, cm, 12/04/21 12:54:00 EDT, Height/Length Dosing, 84, kg, 12/04/21 12:54:00 EDT, Weight Dosing Start Date: 12/04/21 Stop Date: 12/14/21 Status: Ordered amoxicillin 875 mg / clavulanate 125 mg oral tablet (20 sources) Penicillin-class Antibacterial Start: 09-03-2024 take 1 tablet by mouth twice daily at mealtime Amoxicillin-Pot Clavulanate 875-125 mg tablet Active 1 TAB PO Twice daily 01 04September 03, 2024 12:00am with food Start: 02-13-2024 End: 02-20-2024 Amoxicillin-clavulanate 875- 125 MG tablet Take by mouth. 02/13/2024 02/20/2024 Active Start: 02-13-2024 End: 02-20-2024 Augmentin 875 mg-125 mg Tab 1 tab(s), Oral, q12hr for 7 day(s), 14 tab(s), Refill(s) 0, [facility]/pharmacy #[id number], 165.1, cm, 02/13/24 0:28:00 EDT, Height/Length Dosing, 87.3, kg, 02/13/24 0:28:00 EDT, Weight Dosing Start Date: 02/13/24 Stop Date: 02/20/24 Status: Ordered Start: 07-28-2023 End: 10-18-2023 take 1 tablet by mouth twice daily at mealtime Amoxicillin-Pot Clavulanate 875-125 mg tablet Discontinued 1 TAB PO Twice daily 01 [...] tablet by mouth once daily Atenolol 25 mg tablet Discontinued 25 MG PO Daily January 19, 2024 11:38am [...] Sep, Active clindamycin 300 mg oral capsule (6 sources) [...] q12hr, # 20 tab(s), Refills(s) 0, Pharmacy: [facility]/pharmacy #[id number], 165, cm, 09/26/23 14:18:00 EDT, Height/Length Dosing, 81.2, kg, 09/26/23 14:18:00 EDT, Weight Dosing Start Date: 09/26/23 Status: Ordered docusate sodium 50 mg / sennosides, skilled nursing 8.6 mg oral tablet (6 sources) Start: 04-06-2024 take 1 tablet by mouth in the morning sennosides-docusate sodium (SENNA WITH DOCUSATE SODIUM) 8.6-50 mg Take 1 tablet by mouth in the morning and 1 tablet before bedtime. 60 tablet 04/06/2024 Active doxycycline hyclate 100 mg oral capsule (18 sources) Tetracycline-clas s Drug Start: 04-11-2023 take 1 capsule by mouth every twelve hours Doxycycline Hyclate 100 MG 1 capsule Orally Twice a day for 10 days Mar, Active Start: 06-20-2019 End: 04-28-2022 take 1 capsule by mouth twice daily Doxycycline Monohydrate 100 mg Capsule Discontinued 100 MG PO Twice daily June 20, 2019 1:00am April 28, 2022 1:50am 84 hr estradiol 0.60243 mg/hr / norethindrone acetate 0.24071 mg/hr transdermal system (6 sources) Estrogen Start: 04-09-2024 estradiol-norethindrone acet (COMBIPATCH) 0.05-0.14 mg/[address] 1 patch on the skin 2 (two) times a week. 24 patch 4 04/09/2024 Active ferrous sulfate (20 sources) Start: 07-23-2020 take 1 tablet by mouth every other day Ferrous Sulfate 325 (65 Fe) MG 1 tablet Orally qod Jul, Active Start: 07-23-2020 take 1 tablet by meoldie every twenty-four hours Ferrous Sulfate 325 (65 Fe) MG 1 tablet Orally Once a day Jul, Not-Taking Start: 07-23-2020 take 1 tablet by mouth once da alvaro Ferrous Sulfate 325 (65 Fe) MG 1 tablet Orally Once a day Jul, Not-Taking Start: 07-15-2018 End: 06-20-2019 take 1 tablet by mouth twice daily Ferrous Sulfate 325 mg (65 mg iron) tablet Discontinued 325 MG PO Twice daily July 15, [...] day(s), # 20 tab(s), Refills(s) 0, Pharmacy: [facility]/pharmacy #[id number], 165, cm, 09/26/23 14:18:00 EDT, Height/Length Dosing, 81.2, kg, 09/26/23 14:18:00 EDT, Weight Dosing Start Date: 09/26/23 Stop Date: 10/01/23 Status: Ordered ibuprofen 800 mg oral tablet (20 sources) Nonsteroidal Anti-inflammatory Drug Start: 04-06-2024 take 1 tablet by mouth every eight hours ibuprofen (MOTRIN) 800 mg tablet Take 1 tablet (800 mg total) by mouth every 8 (eight) hours. 60 tablet 04/06/2024 Active Start: 04-28-2022 End: 03-29-2023 take 1 tablet by mouth every six hours as needed for pain Ibuprofen 600 mg tablet Discontinued 600 MG PO Q6H as needed for pain April 28, 2022 1:00am March 29, 2023 1:48am Start: 07-07-2018 End: 03-10-2022 take 1 tablet by mouth every six hours ibuprofen (MOTRIN) 600 mg tablet Take 1 tablet by mouth every 6 hours. 60 tablet 0 07/07/2018 03/10/2022 Discontinued (Discontinued by Patient) Comment on above: Take 1 tablet by melodie th every 6 hours. ketorolac tromethamine 10 mg oral tablet (15 sources) Nonsteroidal Anti-inflammatory Drug, Cyclooxygenase Inhibitor take [...] for 10 day(s), 22 gm, Refill(s) 0, [facility]/pharmacy #[id number], 166, cm, 12/04/21 12:54:00 EDT, Height/Length [...] by Nasal route once for 1 dose. Ismay into the nose as directed. Call 911. If no response in 2 minutes use a new nasal spray in other nostril. Repeat until help arrives. 1 Each 02/16/2024 Active naloxone (NARCAN) 4 mg/actuation spray,non-aerosol nasal spray (6 sources) Start: naloxone (NARCAN) 4 mg/actuation spray,non-aerosol [...] tablet (20 sources) Serotonin-3 Receptor Antagonist Start: take 1 tablet by mouth every eight hours as needed for nausea ondansetron ODT (ZOFRAN ODT) 4 mg disintegrating tablet Dissolve 1 tablet (4 mg total) on tongue every 8 (eight) hours as needed for nausea for up to 10 doses. 10 tablet 09/28/2024 Active Start: 02-24-2024 End: 02-24-2024 4 mg, Intravenous, ONCE, 1 d ose, On 02/24/24 at 2100 Start: 02-16-2024 End: [...] 2023 12:00am Start: 09-14-2021 End: 04-28-2022 take 1 tablet by mouth three times daily as needed for nausea and vomiting Ondansetron 4 mg tablet,disintegrating Discontinued 4 MG PO Three times daily as needed for nausea and vomiting 9 September 14, 2021 12:00am April 28, 2022 1:50am oxyCODONE hydrochloride 5 mg oral capsule (12 sources) Opioid Agonist Start: 04-24-2023 End: 04-27-2023 oxyCODONE 5 mg Cap 5 mg = 1 cap(s), Oral, q6hr, PRN Pain 8-10, X 3 day(s), # 12 cap(s), Refills(s) 0, Pharmacy: [facility]/pharmacy #[id number], 165.1, cm, 04/24/23 13:32:00 EST, Height/Length Dosing, 84, kg, 04/24/23 13:32:00 EST, Weight Dosing Start Date: 04/24/23 Stop Date: 04/27/23 Status: Ordered Start: 04-03-2023 End: 04-30-2023 take 1 tablet by mouth every four hours as needed for pain Oxycodone 5 mg tablet Discontinued 5 MG PO Q4H as needed for severe pain (scale score 7-10) 18 April 03, 2023 April 30, 2023 6:33pm Start: 03-29-2023 take 5 mg by mouth e very six hours Oxycodone Active 5 MG PO Q6H 12 March 29, 2023 polyethylene glycol 3350 50443 mg powder for oral solution (2 sources) Osmotic Laxative Start: 09-26-2023 End: 10-03-2023 take 17 g by mouth once daily Miralax 3350 17 gram packet 17 gm, Oral, Daily, X 7 day(s), # 119 gm, Refills(s) 0, Pharmacy: [facility]/pharmacy #[id number], 165, cm, 09/26/23 14:18:00 EDT, Height/Length [...] Drug Class(es) Dates Sig (Normalized) Sig (Original) [id number] 200 actuat albuterol 0.09 mg/actuat metered dose inhaler (17 sources) beta2-Adrenergic Agonist Start: 06-20-2019 End: 04-28-2022 take 1 puff(s) by inhalation every four to six hours as needed Albuterol Sulfate 90 mcg/actuation Hfa Aerosol Inhaler Discontinued 2 PUFF INHALATION EVERY 4-6 HOURS as needed for shortness of breath June 20, 2019 1:00am April 28, 2022 1:51am ALPRAZolam 0.25 mg oral tablet (20 sources) Benzodiazepine Start: 09-14-2023 End: 09-03-2024 Alprazolam 0.25 mg tablet Discontinued 0.25 MG PO EVERY 8-12 HOURS as needed for Anxiety May 30, 2024 10:19am September 03, 2024 2:18pm Start: 01-12-2023 Xanax 0.25 MG 1 tablet Orally q8-12 hrs prn anxiety for 8 days Jan, Active Start: 12-04-2021 End: 03-29-2023 take 1 tablet by mouth once daily as needed for anxiety Alprazolam (Xanax) 0.25 mg tablet Discontinued 0.25 MG PO Daily as needed for Anxiety April 28, 2022 1:00am March 29, 2023 1:48am Start: 12-04-2021 End: 09-14-2023 take 1 tablet by mouth three times daily as needed for anxiety Alprazolam 0.25 mg tablet Discontinued 0.25 MG PO Three times daily as needed for Anxiety March 29, 2023 12:00am September 14, 2023 2:59pm Start: 03-12-2019 Xanax 0.5 MG 1 /2 tablet Orally q8-12 hrs prn anxiety Feb, Active Start: 03-12-2019 Xanax 0.25 MG 1 tablet Orally q8-12 hrs prn anxiety for 8 days Feb, Active Comment on above: TAKE 1 TABLET BY MELODIE EVERY 8 TO 12 HOURS NEEDED FOR ANXIETY azithromycin 250 mg oral tablet (17 sources) Macrolide Antimicrobial Start: End: take 2-5 tablets by mouth once daily Azithromycin 250 mg tablet Discontinued 0 PO .COMPLEX April 17, 2021 12:00am April 28, 2022 1:50am take 500 mg today (day 1), then 250 mg for 4 days (days 2-5) benzonatate 100 mg oral capsule (5 sources) Non-narcotic Antitussive Start: take 2 capsules by mouth three times daily for cough Tessalon Perles 100 MG 2 capsules Orally Three times a day for cough Aug, Not-Taking citalopram 20 mg oral tablet (20 sources) Serotonin Reuptake Inhibitor Start: End: take 1 tablet by mouth once daily Citalopram 20 mg tablet Discontinued 20 MG PO Daily April 28, 2022 1:00am March 29, 2023 1:48am Comment on above: Take 20 mg by mouth once daily. codeine phosphate 2 mg/ml / guaiFENesin 20 mg/ml oral solution (17 sources) Opioid Agonist Start: End: take 1 mL by mouth every four to six hours as needed for cough Codeine-Guaifenesin 10-100 mg/5 mL Liquid Discontinued 10 ML PO EVERY 4-6 HOURS as needed for Cough June 20, 2019 1:00am April 28, 2022 1:50am dextromethorphan hydrobromide 30 mg / pyrilamine maleate 30 mg oral tablet (7 sources) Uncompetitive W-radjpu-K-aspartate Receptor Antagonist, Sigma-1 Agonist Start: take 1 tablet by mouth every six hours as needed Lemmon DMT 30-30 MG 1 tablet Orally q6 hrs prn Aug, Not-Taking diazePAM 5 mg oral tablet (1 source) Benzodiazepine Start: End: take 1 dose by mouth once 5 mg, Oral, ONCE, 1 dose, On Obdulia 07/12/24 at 0145 1 ml diphenhydrAMINE hydrochloride 50 mg/ml cartridge (8 sources) Histamine-1 Receptor Antagonist Start: End: 25 mg, Intravenous, ONCE, 1 dose, On 07/14/24 at 1900 take 1 capsule by [facility] every six hours as needed diphenhydrAMINE [...] (Hycodan) 5-1.5 mg/5 mL (5 mL) syrup (14 sources) Start: 09-07-2023 End: 09-07-2023 Hydrocodone-Homatropine (Hycodan) [...] 10:42am HYDROmorphone hydrochloride 2 mg oral tablet (19 sources) Opioid Agonist Start: 07-14-2024 End: 07-14-2024 1 mg, Intravenous, ONCE, 1 dose, On 07/14/24 at 1830 Start: 02-24-2024 End: 02-24-2024 0.5 mg, Intravenous, ONCE, 1 dose, On Tue02/24/24 at 2330 Start: 02-16-2024 End: 02-16-2024 0.5 mg, Intravenous, ONCE, 1 dose, On Obdulia 02/16/24 at 1645 Start: 02-16-2024 End: 02-16-2024 1 mg, Intravenous, ONCE, 1 d ose, On Obdulia 02/16/24 at 1430 Start: 04-28-2022 End: 03-29-2023 take 1 tablet by mouth every four hours as needed for pain Hydromorphone (Dilaudid) 2 mg tablet Discontinued 2 MG PO Q4H as needed for pain 30 7 April 28, 2022 March 29, 2023 1:48am iohexol (OMNIPAQUE) 350 MG/ML injection 75 mL (1 source) Start: 02-16-2024 End: 02-16-2024 75 mL, Intravenous, ONCE, 1 dose, On Obdulia 02/16/24 at 1615, Extravasation Risk, Radiology Procedure 2 [...] at 1930 naproxen 500 mg oral tablet (13 sources) Nonsteroidal Anti-inflammatory Drug Start: 03-29-2023 End: 04-30-2023 take 1 tablet by mouth twice daily as needed for pain Naproxen 500 mg tablet Discontinued 500 MG PO Twice daily as needed for pain March 29, 2023 12:00am April 30, 2023 6:33pm potassium chloride 20 meq extended release oral tablet (16 sources) Start: 09-14-2021 End: 04-28-2022 take 1 tablet by mouth once daily Potassium Chloride 20 mEq tablet extended release Discontinued 20 MEQ PO Daily September 14, 2021 12:00am April 28, 2022 1:50am predniSONE 20 mg oral tablet (20 sources) Start: 08-11-2021 predniSONE 20 MG take 3 tablets Orally x3 days, then 2 tabs x3 days then 1 tab a day x3 days with food or milk for 9 days Aug, Not-Taking Start: 04-17-2021 End: 04-28-2022 take 1 tablet by mouth once daily at mealtime Prednisone 50 mg tablet Discontinued 50 MG PO Daily 10 15April 17, 2021 12:00am April 28, 2022 1:50am administer with food or milk Start: 06-20-2019 End: 04-28-2022 take 2 tablets by mouth once daily Prednisone 20 mg tablet Discontinued 40 MG PO Daily 03 17June 20, 2019 1:00am April 28, 2022 1:50am Start: 06-20-2019 End: 04-28-2022 take 40 mg by mouth once daily Prednisone Discontinued 40 MG PO Daily 03 17June 20, 2019 1:00am April 28, 2022 1:50am prochlorperazine 5 mg oral tablet (12 sources) Phenothiazine Start: 03-29-2023 End: 04-30-2023 take 1 tablet by mouth every eight hours as needed for nausea and vomiting Prochlorperazine Maleate 5 mg tablet Discontinued 5 MG PO Q8H as needed for nausea and vomiting 30 12March 29, 2023 12:00am April 30, 2023 6:33pm semaglutide 0.3 mg (1 source) Start: 03-23-2024 End: 09-03-2024 inject 0.3 mg by subcutaneous injection every week semaglutide 0.3 mg Discontinued 0.25 ML SUBCUT .once weekly March 23, 2024 12:00am September 03, 2024 1:58pm 250 ml sodium chloride 9 mg/ml injection (2 sources) Start: 02-16-2024 End: 02-16-2024 75 mL, Intravenous, ONCE, 1 dose, On Obdulia 02/16/24 at 1615, Radiology Procedure Problems Active Problems Problem Classification Problem Date Documented Da te Episodic/Chronic Abdominal pain (20 sources) Pain in pelvis; Translations: [Pelvic and perineal pain] Onset: 05-30-2018 07-06-2018 Episodic Administrative/social admission (1 source) Other problems related to medical facilities and other health care; Translations: [Other problems related to medical facilities and other health care] Onset: 10-01-2024 Episodic Anxiety disorders (20 sources) Anxiety; Translations: [Anxiety disorder, unspecified] Onset: 04-21-2021 Resolved: 01-07-2022 Chronic Complications of surgical procedures or medical care (4 sources) Ovarian remnant syndrome; 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] Onset: 07-14-2024 07-14-2024 Episodic Deficiency and other anemia (12 [...] 04-21-2021 Chronic Disorders of teeth and jaw (10 sources) Toothache; Translations: [Other specified disorders of teeth and supporting structures] Onset: 11-08-2023 11-08-2023 Episodic Endometriosis (20 sources) Endometriosis (clinical); Translations: [Endometriosis, unspecified] Onset: 03-29-2023 03-29-2023 Chronic Endometriosis (2 sources) Endometriosis; Translations: [Deep endometriosis of ovary, unspecified ovary] Onset: 04-06-2024 Fever of unknown origin (11 sources) Fever, unspecified; Translations: [Fever] Episodic Inflammatory [...] Onset: 06-22-2023 Episodic Other lower respiratory disease (17 sources) Dyspnea; Translations: [Dyspnea, unspecified] 06-20-2019 Episodic Other lower respiratory disease (19 sources) Cough; Translations: [Acute cough] 07-28-2023 Episodic Other lower respiratory disease (3 sources) Cough; Translations: [Acute cough] 07-28-2023 Episodic Other nervous system disorders (4 sources) Other chronic pain; Translations: [Other chronic pain] Onset: 07-29-2024 Chronic Other nervous system disorders (1 source) [...] Episodic Other nutritional; endocrine; and metabolic disorders (2 sources) Weight increased; Translations: [Abnormal weight gain] 03-23-2024 Episodic Other screening for suspected conditions (not mental disorders or infectious disease) (11 sources) Other specified abnormal findings of blood chemistry; Translations: [No current problems or disability] Onset: 06-22-2023 12-04-2021 Episodic Other upper respiratory infections (12 sources) Sinusitis; Translations: [Chronic sinusitis, unspecified] Onset: 11-25-2023 10-18-2023 Chronic Other upper respiratory infections (17 sources) Acute sinusitis, unspecified; Translations: [Acute sinusitis] Onset: 10-16-2021 Resolved: 10-16-2021 Episodic Residual codes; unclassified (2 sources) Insomnia; Translations: [Insomnia, unspecified] 03-23-2024 Episodic Residual codes; unclassified (1 source) Insomnia, unspecified; Translations: [Insomnia, unspecified] 03-23-2024 Episodic Residual codes; unclassified (1 source) Procedure and treatment not carried out because of patient's decision for other reasons; Translations: [Procedure and treatment not carried out because of patient's decision for other reasons] Onset: 10-01-2024 Episodic Skin and subcutaneous tissue infections (1 source) Impetigo; Translations: [Impetigo, unspecified] Onset: 12-04-2021 Episodic Unclassified (1 source) Cough, unspecified; Translations: [Cough, unspecified] Onset: 11-25-2023 Past or Other Problems Problem Classification Problem Date Documented Da te Episodic/Chronic Cardiac dysrhythmias (20 sources) Tachycardia; Translations: [Tachycardia, unspecified] Onset: 04-21-2021 Resolved: 04-21-2021 06-20-2019 Episodic Fluid and electrolyte disorders (18 sources) Hypokalemia; Translations: [Hypokalemia] Onset: 01-27-2024 06-20-2019 Episodic Other liver diseases (1 source) Abnormal levels of other serum enzymes Onset: 02-16-2022 Resolved: 02-16-2022 Episodic Other lower respiratory disease (1 source) Cough Onset: 08-11-2021 Resolved: 08-11-2021 Episodic Other non-traumatic joint disorders (2 sources) Pain in right hip; Translations: [Pain in right hip] Onset: 03-03-2024 Episodic Ovarian cyst (20 sources) Cyst of ovary; Translations: [Unspecified ovarian cyst, unspecified side] Onset: 05-30-2018 09-14-2021 Episodic Unclassified (8 sources) Cough R05.9 Onset: 05-18-2021 Resolved: 10-16-2021 Viral infection (1 source) COVID-19 Onset: 05-18-2021 Resolved: 05-18-2021 Results Test Name Value Interpretation Reference Range Facility ED Clinical Summaryon 2024 ED Clinical Summary ED Clinical Summary [place] [id number] ED Clinical Summary Person Information Name: ANTONIA NOYOLA/[facility] Age: 40 Years : 1985 Sex: Female Language: Citizen Of [place] PCP: NONE, XXXX Marital Status: Visit Id: Visit Reason: Abdominal problem; Nausea; Abdominal pain; ABD PAIN Speciality: Acuity: 3 Enc Type: Emergency Med Service: Emergency Arrival: 01/15/2025 02:39:31 Discharge: 01/15/2025 04:08:53 LOS: 000 01:29 Checkin: 01/15/2025 02:39:31 Checkout: 01/15/2025 04:08:53 Dispo Type: Home (Routine DC) EVENTS: Event Name Event Status Request Date/Time Start Date/Time Complete Date/Time Arrive Complete 01/15/2025 02:39:31 01/15/2025 02:39:31 01/15/2025 02:39:31 Document Home Meds Request 01/15/2025 02:39:31 Triage Complete 01/15/2025 02:39:31 01/15/2025 02:58:25 01/15/2025 02:58:25 Bed Assign Complete 01/15/2025 02:52:11 01/15/2025 02:52:11 01/15/2025 02:52:11 Dr Exam Complete 01/15/2025 02:52:11 01/15/2025 03:10:11 01/15/2025 03:10:11 RN Exam Complete 01/15/2025 02:52:11 01/15/2025 03:59:59 01/15/2025 03:59:59 Pending Labs Complete 01/15/2025 02:59:42 01/15/2025 03:13:40 Registration Complete 01/15/2025 03:10:11 01/15/2025 03:54:20 01/15/2025 03:54:20 Pending Labs Cancel 01/15/2025 03:26:01 01/15/2025 03:35:47 Lab Cancel 01/15/2025 03:26:01 01/15/2025 03:35:47 Urine Collect Cancel 01/15/2025 03:26:01 01/15/2025 03:35:47 Pending Labs Inlab 01/15/2025 03:36:16 01/15/2025 03:36:16 Lab Inlab 01/15/2025 03:36:16 01/15/2025 03:36:16 Urine Collect Inlab 01/15/2025 03:36:16 01/15/2025 03:36:16 Meds Admin Complete 01/15/2025 03:47:19 01/15/2025 03:55:59 Discharge Complete 01/15/2025 03:50:26 01/15/2025 04:09:02 01/15/2025 04:09:02 Reg Complete Request 01/15/2025 03:54:20 Reg Bed Request Complete 01/15/2025 03:54:20 01/15/2025 03:54:20 01/15/2025 03:54:20 Transfer Complete 01/15/2025 04:09:02 01/15/2025 04:09:02 01/15/2025 04:09:02 ADDRESS: [address] [place] [phone] PHYS DOC NOTES: MEDICAL INFORMATION: Prescriptions Given: Medications to Continue with No Changes Other Medications alprazolam (alprazolam 0.25 mg Tab) budesonide-formoterol (Symbicort 80/4.5 inhalation aerosol with adapter) citalopram (citalopram 20 mg Tab) By Mouth every day. diflunisal (diflunisal 500 mg Tab) 1 Tablets By Mouth every 12 hours. Refills: 0. PATIENT EDUCATION INFORMATION: Instructions: Abdominal Pain, Adult Follow up: With: Address: When: JUAN BARNETT, ADIEL Cardozo In 3 days 01/18/2025 DIAGNOSIS: 1:Chronic abdominal pain; Other chronic pain Normal [facility] ED Note-Physicianon 01-16-20 ED Note-Physician ED Note-Physician Basic Information Time Seen: Angeles Ellsworth D.O. 01/15/2025 03:10 Chief Complaint Pt arrives to ED from home with c/o right sided lower abdominal pain starting yesterday in the AM and has worsened through the night. C/O nausea with it. Tried tramadol, toradol, and tylenol at home with no relief. H/O multiple abdominal surgeries. History of Present Illness The patient is a 40-year-old female who presented to the emergency room with right lower quadrant abdominal pain. The patient states she has history of endometriosis. She did have hysterectomy and oophorectomy at [facility]. The patient states on May she had ultrasound of her pelvis which showed a cystic mass on the right pelvic area which possible was endometrioma, seroma or possible abscess. The patient states that she is scheduled for another surgery at [facility] for the mass. But, she states that when she went to get that consultation the doctor had an emergency and was not able to meet with her and now that appointment has been delayed. 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 She has had a history of multiple abdominal surgeries but has never had any bowel obstructions. Pain is a 10 out of 10 sharp and stabbing-like in sensation. Worse to sit, move, or activate her abdominal musculature. No fever or chills. No nausea or vomiting. No diarrhea or constipation. The patient states this feels the same as exacerbation of her pain. The patient denies any other associated symptoms. Patient states that she cannot go to a pain clinic because they will not prescribe narcotics. She states that they only do procedures at pain clinics and she has been declined at [facility] and at [facility]. Patient stated that she walked here. Review of Systems 10 systems were reviewed. Unless indicated in a detailed history of present illness, all other systems reviewed, unremarkable, or noncontributory. Physical Exam Vitals & Measurements T: 36.5 ???C(Oral) HR: 85(Peripheral) RR: 20 BP: 117/71 SpO2: 99% HT: 165 cm WT: 97.3 kg BMI: 35.74 Introduced myself to the patient. My hands were washed with hospital supplied hand medical device assembler and then nonlatex gloves were applied. I obtained permission from the patient to examine them. General: Patient is alert and oriented to person place and time. They are able to provide their own history. Patient appears to be nontoxic although in mild distress. Skin: Skin is pink warm and dry without any evidence of rashes or lesions. Head: Normocephalic atraumatic. Neck: Trachea is midline, airway is intact, no evidence of anterior posterior cervical adenopathy. No midline point tenderness. No JVD or hepatojugular reflux. Eye: Pupils are equal round and reactive. Extraocular muscles are intact. No evidence of vertical or horizontal nystagmus. Conjunctiva is normal. No evidence of scleral icterus ENMT: Dentition is intact, mucous membranes are moist. No evidence of nasal discharge. Cardiovascular: Regular rate and rhythm without any clicks, murmurs, rubs. The patient does not have any evidence of peripheral edema. Respiratory: Lungs are clear to auscultation without any rhonchi, rales, wheezing. Patient speaks in full sentences does not appear toxic or in any acute distress. Chest wall: No reproducible tenderness or deformity Gastrointestinal: No masses appreciated. No obvious hernias. Normal bowel sounds. No fluid wave. No abdominal tenderness. Back: No midline point tenderness. No paraspinal musculature tenderness. Extremities: Patient moves all 4 extremities symmetrically. No evidence of gross deformity, swelling, or tenderness. Neurological: oriented x 4, LOC appropriate for age, CN II-XII intact, motor strength equal & normal bilaterally, sensation equal & normal bilaterally, speech normal Psychiatric: cooperative, affect appropriate for age, normal judgement, normal psychiatric thoughts. After the patient was examined by close removed and my hands were resanitized. The patient was informed of all abnormal physical exam findings. Images This patient has numerous images. Numerous images in terms of ultrasound and as well as MRIs and CTs. I did review the patient's images from [facility] as well as from [facility]. None of the images ever showed anything that was actionable via surgery or diagnostic considerations. Is always been pain control. Therefore, I felt like it was not indicated to scan this patient. She is not having any signs of bowel obstruction. She is having normal bowel movements. Is not having any nausea or vomiting. In the abdomen is not distended. She has no history of an obstruction. Pain feels like her previous pain. Nothing is different. In addition, there is no laboratory work is going to help with this diagnostic of endometriosis. Patient needs to have a laparoscopic exam performed by her physician. At this time its amount of (more content not included)... Normal [facility] Comment on above: Result Comment: Elec tronically Signed By: Angeles Ellsworth D.O.\.br\Date and Time Signed: 01/15/25 04:47 EDT ED Patient Summaryon 025 ED Patient Summary ED Patient Summary [place] [id number] Patient Discharge Instructions Person Information Name: ANTONIA NOYOLA Age: 40 Years Arrival Date: 01/15/2025 02:39:31 Discharge Diagnosis: 1:Chronic abdominal pain; Other chronic pain Primary Care Physician: NONE, XXXX Provider Information Primary Provider: Angeles Ellsworth D.O. M Advanced Clinical Informatics Manager:None The exam and treatment you received in the Emergency Department were for an urgent problem and are not intended as complete care. It is important that you follow up with a doctor, nurse practitioner, or physician???s optometric assistant for ongoing care. If your symptoms become worse or you do not improve as expected and you are unable to reach your usual health care provider, you should return to the Emergency Department. We are available 24 hours a day. ANTONIA NOYOLA has been given the following list of patient education materials, prescriptions and follow-up instructions: Follow-up Instructions: With: Address: When: ADIEL APARICIO MD In 3 days 01/18/2025 In the event that this physician does not participate in your insurance network, please consult with your insurance company to find a nearby participating provider. Patient Education Materials: Abdominal Pain, Adult A MESSAGE TO ALL PATIENTS REGARDING OPIOIDS PRESCRIPTION OPIOIDS: WHAT YOU NEED TO KNOW Prescription opioids can be used to help relieve xfabkwgf-ui-bjgrrd pain and are often prescribed following a [...] be struggling with addiction, tell your health infant childcare provider and ask for guidance or call [facility]???S National Helpline at (more content not included)... Normal [facility] U Drug Screenon 01-15-2025 U Amph Scr Negative Normal NEGATIVE [facility] Comment on above: Result Comment: Nega tive Cutoff: <1000 ng/mL Performed By: #### 2 [id number] #### [facility] [address] [place] [place] [address] U Amy Scr Negative Normal NEGATIVE [facility] Comment on above: Result Comment: Nega tive Cutoff: <200 ng/mL Performed By: #### 2 [id number] #### [facility] [address] [place] [address] U Benzodia Scr Positive Abnormal NEGATIVE [facility] Comment on above: Result Comment: If c onfirmation is required, please notify the lab within 72 hours Result verified by repeat analysis, Unconfirmed by alternate method Negative Cutoff: <200 ng/mL Performed By: #### 2 [id number] #### [facility] [address] [facility] [place] [address] U Cannab Scr Negative Normal NEGATIVE [facility] Comment on above: Result Comment: Nega tive Cutoff: <50 ng/mL Performed By: #### 2 [id number] #### [facility] [address] [facility] [place] [address] U Cocaine Scr Negative Normal NEGATIVE [facility] Comment on above: Result Comment: Nega tive Cutoff: <300 ng/mL Performed By: #### 2 [id number] #### [facility] [address] [facility] [place] [address] U Fentanyl Negative Normal NEGATIVE [facility] Comment on above: Result Comment: Nega tive Cutoff: <5 ng/mL These drug screen results are to be used for medical (i.e., treatment) purposes only. Unconfirmed drug screening results must not be used for non-medical purposes (e.g., employment testing, legal testing). Performed By: #### 2 [id number] #### [facility] [address] [place] [address] U Opiate Scr Negative Normal NEGATIVE [facility] Comment on above: Result Comment: Nega tive Cutoff: <300 ng/mL Performed By: #### 2 [id number] #### [facility] [address] [place] [address] U PCP Scr Negative Normal NEGATIVE [facility] Comment on above: Result Comment: Nega tive Cutoff: <25 ng/mL These drug screen results are to be used for medical (i.e., treatment) purposes only. Unconfirmed drug screening results must not be used for non-medical purposes (e.g., employment testing, legal testing). Performed By: #### 2 [id number] #### [facility] [address] [place] [address] UA with Cult Rflxon 01-16-20 25 Color (U) Colorless Abnormal Yellow [facility] Comment on above: Result Comment: Micr oscopic readings are only performed on those samples that meet specific criteria set forth by [facility]. Performed By: #### 4 [id number] #### [facility] [address] [place] [address] Glucose (U) [Mass/Vol] Negative Normal Negative [facility] Comment on above: Performed By: #### 4 [id number] #### [facility] [address] [place] [address] Ketones Ql (U) Negative Normal Negative [facility] Comment on above: Performed By: #### 4 [id number] #### [facility] [address] [place] [address] UA Blood Negative Normal Negative [facility] Comment on above: Performed By: #### 4 [id number] #### [facility] [address] [place] [address] UA Bacteria Trace Normal Trace [facility] Comment on above: Performed By: #### 4 [id number] #### [facility] [address] [place] [address] UA Clarity Clear Normal Clear [facility] Comment on above: Performed By: #### 4 [id number] #### [facility] [address] [place] [address] UA Leuk Est Negative Normal Negative [facility] Comment on above: Performed By: #### 4 [id number] #### [facility] [address] [place] [address] UA Mucous Negative Normal Negative [facility] Comment on above: Performed By: #### 4 [id number] #### [facility] [address] [place] [address] UA Nitrite Negative Normal Negative [facility] Comment on above: Performed By: #### 4 [id number] #### [facility] [address] [place] [address] UA pH 6.5 Invalid Interpretation Code 5.0-9.0 [facility] Comment on above: Performed By: #### 4 [id number] #### [facility] [address] [place] [address] UA Protein Negative Normal Negative [facility] Comment on above: Performed By: #### 4 [id number] #### [facility] [address] [place] [address] UA RBC 0-3 Normal 0-3 [facility] Comment on above: Performed By: #### 4 [id number] #### [facility] [address] [place] [address] UA Spec Grav 1.009 Invalid Interpretation Code 1.005-1.030 [facility] Comment on above: Performed By: #### 4 [id number] #### [facility] [address] [place] [address] UA Squam Epithelial 0-2 Invalid Interpretation Code [facility] Comment on above: Performed By: #### 4 [id number] #### [facility] [address] [place] [address] UA Urobilinogen Negative Normal Negative [facility] Comment on above: Performed By: #### 4 [id number] #### [facility] [address] [place] [address] UA WBC 0-5 Normal 0-5 [facility] Comment on above: Performed By: #### 4 [id number] #### [facility] [address] [place] [address] Urobilinogen (U) [Mass/Vol] Negative Normal Negative [facility] Comment on above: Performed By: #### 4 [id number] #### [facility] [address] [place] [address] UA Spec Desc Clean Catch Normal [facility] Comment on above: Performed By: #### 4 [id number] #### [facility] [address] [place] [address] BASIC METABOLIC PANELon -2 Anion gap [Moles/Vol] 7 mmol/L Normal 5-15 [facility] Comment on above: Performed By: #### C BCA, CMP, 3040-3, 21792-4, 1987-10, #### [facility] ([id number]) [address] [place] [address] Calcium [Mass/Vol] 9.1 mg/dL Normal 8.5-10.5 [facility] Comment on above: Performed By: #### C BCA, CMP, 3040-3, 13843-1, 1987-10, #### [facility] ([id number]) [address] [place] [address] Chloride [Moles/Vol] 107 mmol/L Normal 98-109 [facility] Comment on above: Performed By: #### C BCA, CMP, 3040-3, 66588-6, 1987-10, #### [facility] ([id number]) [address] [place] [address]8534 CO2 [Moles/Vol] 24 mmol/L Normal 22-32 [facility] Comment on above: Performed By: #### C BCA, CMP, 3040-3, 50103-3, 1987-10, #### [facility] ([id number]) [address] [place] [address] 35545 Creatinine [Mass/Vol] 0.64 mg/dL Normal 0.40-1.00 [facility] Comment on above: Result Comment: METH OD TRACEABLE TO IDMS STANDARD Performed By: #### C BCA, CMP, 3040-3, 65236-2, 1987-10, #### [facility] ([id number]) [address] [place] [address]853 EGFR (CKD-EPI) NON-RACE DEPENDENT >^90 Normal >=60 [facility] Comment on above: Result Comment: eGFR not reported due to non-numeric value for Creatinine. Reported eGFR is based on the CKD-EPI 2020 equation that does not use a race coefficient. Performed By: #### C BCA, CMP, 3040-3, 60999-5, 1987-10, #### [facility] ([id number]) [address] [place] [address]858 Glucose [Mass/Vol] 102 mg/dL High 65-99 [facility] Comment on above: Performed By: #### C BCA, CMP, 3040-3, 43213-3, 1987-10, #### [facility] ([id number]) [address] [place] [address] 90841 Potassium [Moles/Vol] 3.4 mmol/L Low 3.5-5.0 [facility] Comment on above: Performed By: #### C BCA, CMP, 3040-3, 62511-4, 1987-10, #### [facility] ([id number]) [address] [place] [address]777 Sodium [Moles/Vol] 138 mmol/L Normal 134-146 [facility] Comment on above: Performed By: #### C BCA, CMP, 3040-3, 61058-2, 1987-10, #### [facility] ([id number]) [address] [place] [address] 99503 Urea nitrogen [Mass/Vol] 7 mg/dL Normal 5-23 [facility] Comment on above: Performed By: #### C BCA, CMP, 3040-3, 81320-1, 1987-10, #### [facility] ([id number]) [address] [place] [address] 92195 CBC WITH AUTO DIFFERENTIALon 12-06-2024 BASOPHILS ABSOLUTE COUNT (10*3/UL) BY AUTOMATED COUNT 0.1 10*3/uL Normal 0.0-0.2 [facility] Comment on above: Performed By: #### C BCA, CMP, 3040-3, 51250-9, 1987-10, #### [facility] ([id number]) [address] [place] [address] 47991 BASOPHILS RELATIVE PERCENT BY AUTOMATED COUNT 0.9 % Normal [facility] Comment on above: Performed By: #### C BCA, CMP, 3040-3, 27277-6, 1987-10, #### [facility] ([id number]) [address] [place] [address] 43860 CELLAVISION DIFFERENTIAL TYPE AUTOMATED DIFFERENTIAL Normal [facility] Comment on above: Performed By: #### C BCA, CMP, 3040-3, 42605-6, 1987-10, #### [facility] ([id number]) [address] [place] [address] 59456 Eosinophils (Bld) [#/Vol] 0.1 10*3/uL Normal 0.0-0.4 [facility] Comment on above: Performed By: #### C BCA, CMP, 3040-3, 79251-3, 1987-10, #### [facility] ([id number]) [address] [place] [address] 89008 EOSINOPHILS RELATIVE PERCENT BY AUTOMATED COUNT 0.7 % Normal [facility] Comment on above: Performed By: #### C BCA, CMP, 3040-3, 42964-1, 1987-10, #### [facility] ([id number]) [address] [place] [address] Erythrocyte distribution width (RBC) [Ratio] 19.6 % High 11.5-15 [facility] Comment on above: Performed By: #### C STEVE JOE, 0-3, , 1987-10, #### [facility] ([id number]) [address] [place] [address] 66732 Hematocrit (Bld) [Volume fraction] 36.0 % Normal 35-47 [facility] Comment on above: Performed By: #### C STEVE JOE, 3, , 1987-10, #### [facility] ([id number]) [address] [place] [address] 36289 Hemoglobin (Bld) [Mass/Vol] 11.3 g/dL Low 11.7-15.5 [facility] Comment on above: Performed By: #### Leila JOE CMP, 3, , 1987-10, #### [facility] ([id number]) [address] [place] [address] 36231 LYMPHOCYTES ABSOLUTE COUNT (10*3/UL) BY AUTOMATED COUNT 2.3 10*3/uL Normal 1.0-3.5 [facility] Comment on above: Performed By: #### Leila JOE CMP, 3039-3, , 1987-10, #### [facility] ([id number]) [address] [place] [address] 84595 LYMPHOCYTES RELATIVE PERCENT BY AUTOMATED COUNT 26.4 % Normal [facility] Comment on above: Performed By: #### Leila JOE CMP, 0-3, , 1987-10, #### [facility] ([id number]) [address] [place] [address] 86071 MCH (RBC) [Entitic mass] 23.6 pg Low 27-34 [facility] Comment on above: Performed By: #### C BCA, CMP, 3040-3, 88184-3, 1987-10, #### [facility] ([id number]) [address] [place] [address] 31498 MCHC (RBC) [Mass/Vol] 31.3 g/dL Low 32-36 [facility] Comment on above: Performed By: #### C BCA, CMP, 3040-3, 26213-2, 1987-10, #### [facility] ([id number]) [address] [place] [address] 07922 MCV (RBC) [Entitic vol] 75 fL Low 80-100 [facility] Comment on above: Performed By: #### C BCA, CMP, 0-3, , 1987-10, #### [facility] ([id number]) [address] [place] [address] 41407 MONOCYTES ABSOLUTE COUNT (10*3/UL) BY AUTOMATED COUNT 0.6 10*3/uL Normal 0.0-0.9 [facility] Comment on above: Performed By: #### C BCA, CMP, 3040-3, 99568-8, 1987-10, #### [facility] ([id number]) [address] [place] [address] 58320 MONOCYTES RELATIVE PERCENT BY AUTOMATED COUNT 6.9 % Normal [facility] Comment on above: Performed By: #### C BCA, CMP, 3040-3, 67385-2, 1987-10, #### [facility] ([id number]) [address] [place] [address] 10135 NEUTROPHILS ABSOLUTE COUNT BY AUTOMATED COUNT 5.7 10*3/uL Normal 1.5-6.6 [facility] Comment on above: Performed By: #### C BCA, CMP, 3040-3, 03046-2, 1987-10, #### [facility] ([id number]) [address] [place] [address] 25699 NEUTROPHILS RELATIVE PERCENT BY AUTOMATED COUNT 65.1 % Normal [facility] Comment on above: Performed By: #### C BCA, CMP, 3040-3, 56881-1, 1987-10, #### [facility] ([id number]) [address] [place] [address] 91332 Platelet mean volume (Bld) [Entitic vol] 8.6 fL Normal 7-12 [facility] Comment on above: Performed By: #### C HEATH, CMP, 3039-3, , 1987-10, #### [facility] ([id number]) [address] [place] [address] 17241 Platelets (Bld) [#/Vol] 593 10*3/uL High 150-450 [facility] Comment on above: Performed By: #### C HEATH, CMP, 0-3, , 1987-10, #### [facility] ([id number]) [address] [place] [address] 46307 RBC COUNT 4.78 X10E12/L Normal 3.8-5.2 [facility] Comment on above: Performed By: #### Leila BCA, CMP, 3040-3, , 1987-10, #### [facility] ([id number]) [address] [place] [address] 03498 WBC (Bld) [#/Vol] 8.7 10*3/uL Normal 4-11 [facility] Comment on above: Performed By: #### Leila BCA, CMP, 3040-3, 98225-5, 1987-10, #### [facility] ([id number]) [address] [place] [address] ABDOMEN AND PELVIS W CONT on 12-06-2024 CT ABDOMEN AND PELVIS W CONT CT ABDOMEN AND PELVIS W CONT EXAM: ABDOMEN AND PELVIS CT WITH CONTRAST CLINICAL INFORMATION: chronic RLQ pain, ovarian remnant syndrome. TECHNIQUE: CT abdomen and pelvis was performed utilizing 5 mm axial reconstructions following the uneventful administration of nonionic intravenous contrast. Coronal and sagittal reformatted images as well as delayed excretory phase images were obtained and reviewed. Automated exposure control was utilized. COMPARISON: 09/28/2024 FINDINGS: The limited visualized lung bases are unremarkable. The liver is unremarkable. The gallbladder is surgically absent. The spleen is normal. The pancreas is unremarkable. The right kidney is normal. The left kidney is normal. The adrenals are unremarkable. There are no dilated loops of bowel or evidence for pneumatosis or free air. A normal appendix is identified. There is no significant free fluid. The patient is status post hysterectomy. IMPRESSION: 1. No acute findings in the abdomen and pelvis. 2. Normal appendix. 3. Status post hysterectomy and cholecystectomy. All CT scans at this facility use dose modulation, iterative reconstruction, and/or weight based dosing when appropriate to reduce radiation dose to as low as reasonably achievable. Finalized by Laurent Larsen MD on 12/06/2024 6:25 PM Normal [facility] LIPASEon 12-06-2024 Lipase [Catalytic activity/Vol] 44 U/L High 17-40 [facility] Comment on above: Performed By: #### C BCA, CMP, 3040-3, 89730-4, #### [facility] ([id number]) [address] [place] [address] 89911 LIVER PANELon 12-06-2024 Albumin [Mass/Vol] 4.2 g/dL Normal 3.2-5.3 [facility] Comment on above: Performed By: #### C BCA, CMP, 3040-3, 80460-9, #### [facility] ([id number]) [address] [place] [address] 93751 ALP [Catalytic activity/Vol] 70 U/L Normal 39-130 [facility] Comment on above: Performed By: #### C BCA, CMP, 3040-3, 86368-4, 1987-10, #### [facility] ([id number]) [address] [place] [address] 55228 ALT [Catalytic activity/Vol] 15 U/L Normal <=31 [facility] Comment on above: Performed By: #### C BCA, CMP, 3040-3, 59527-6, 1987-10, #### [facility] ([id number]) [address] [place] [address] 25584 AST [Catalytic activity/Vol] 18 U/L Normal <=41 [facility] Comment on above: Performed By: #### C BCA, CMP, 3040-3, 23012-0, 1987-10, #### [facility] ([id number]) [address] [place] [address] 10307 Bilirubin [Mass/Vol] 0.2 mg/dL Low 0.3-1.2 [facility] Comment on above: Performed By: #### C BCA, CMP, 3040-3, 05311-0, 1987-10, #### [facility] ([id number]) [address] [place] [address] 26614 Bilirubin.indirect [Mass/Vol] mg/dL Normal <=0.4 [facility] Comment on above: Performed By: #### C BCA, CMP, 3040-3, 59732-7, 1987-10, #### [facility] ([id number]) [address] [place] [address] 57920 Protein [Mass/Vol] 7.7 g/dL Normal 6.0-8.0 [facility] Comment on above: Performed By: #### C BCA, CMP, 3040-3, 20772-6, 1987-10, #### [facility] ([id number]) [address] [place] [address] 24778 POCT NURSING URINE MACROSCOP IC UAon 12-06-2024 BILIRUBIN AUDREY Negative Normal Negative [facility] Comment on above: Performed By: #### C BCA, CMP, 3040-3, 94326-6, 1987-10, #### [facility] ([id number]) [address] [place] [address] 52993 BLOOD/HGB AUDREY Small Abnormal Negative [facility] Comment on above: Performed By: #### C BCA, CMP, 3040-3, 66498-1, 1987-10, #### [facility] ([id number]) [address] [place] [address] 96923 GLUCOSE AUDREY Negative Normal Negative [facility] Comment on above: Performed By: #### C BCA, CMP, 3040-3, 76684-6, 1987-10, #### [facility] ([id number]) [address] [place] [address] 79882 KETONES AUDREY Negative Normal Negative [facility] Comment on above: Performed By: #### C BCA, CMP, 3040-3, 69188-2, 1987-10, #### [facility] ([id number]) [address] [place] [address] 00192 LEUKOCYTE ESTERASE AUDREY Negative Normal Negative [facility] Comment on above: Performed By: #### C BCA, CMP, 3040-3, 53154-3, 1987-10, #### [facility] ([id number]) [address] [place] [address] 66115 NITRITE AUDREY Negative Normal Negative [facility] Comment on above: Performed By: #### C BCA, CMP, 3040-3, 05850-9, 1987-10, #### [facility] ([id number]) [address] [place] [address] 37740 PH AUDREY 7.5 Normal 5.0, 6.0, 6.5, 7.0, 7.5, 8.0, 8.5, 5.5 [facility] Comment on above: Performed By: #### C BCA, CMP, 3040-3, 44410-0, 1987-10, #### [facility] ([id number]) [address] [place] [address] 47965 PROTEIN AUDREY Negative Normal Negative [facility] Comment on above: Performed By: #### C BCA, CMP, 0-3, , 1987-10, #### [facility] ([id number]) [address] [place] [address] 21739 SPECIFIC GRAVITY AUDREY 1.010 Normal 1.010, 1.015, 1.020, 1.025 [facility] Comment on above: Performed By: #### C BCA, CMP, 3040-3, 02794-0, 1987-10, #### [facility] ([id number]) [address] [place] [address] 77119 UROBILINOGEN AUDREY 0.2 E.U./dL Normal [facility] Comment on above: Performed By: #### C BCA, CMP, 3040-3, , 1987-10, #### [facility] ([id number]) [address] [place] [address] 19994 CBC AND AUTO DIFFon 10-02-19 25 ABSOLUTE BASOPHIL 0.1 X10E9/L Normal 0.0-0.2 [facility] Comment on above: Performed By: #### C BCA, CMP, 3040-3, 53354-8, 1987-10, #### [facility] ([id number]) [address] [place] [address] 79259 ABSOLUTE NEUTROPHIL 7.3 X10E9/L High 1.5-6.6 [facility] Comment on above: Performed By: #### C BCA, CMP, 0-3, , 1987-10, #### [facility] ([id number]) [address] [place] [address] 75679 Basophils/100 WBC (Bld) 0.6 % Normal [facility] Comment on above: Performed By: #### C BCA, CMP, 3039-3, , 1987-10, #### [facility] ([id number]) [address] [place] [address] 47640 Eosinophils (Bld) [#/Vol] 0.0 10*3/uL Normal 0.0-0.4 [facility] Comment on above: Performed By: #### C BCA, CMP, 3039-08, , 1987-10, #### [facility] ([id number]) [address] [place] [address] 25345 Eosinophils/100 WBC (Bld) 0.1 % Normal [facility] Comment on above: Performed By: #### C HEATH, CMP, 3039-08, , 1987-10, #### [facility] ([id number]) [address] [place] [address] 04061 Erythrocyte distribution width (RBC) [Ratio] 21.0 % High 11.5-15.0 [facility] Comment on above: Performed By: #### C BCA, CMP, 3039-3, , 1987-10, #### [facility] ([id number]) [address] [place] [address] 61162 Hematocrit (Bld) [Volume fraction] 35.8 % Normal 35-47 [facility] Comment on above: Performed By: #### C BCA, CMP, 3040-3, 28997-4, 1987-10, #### [facility] ([id number]) [address] [place] [address] 95048 Hemoglobin (Bld) [Mass/Vol] 11.4 g/dL Low 11.7-15.5 [facility] Comment on above: Performed By: #### C BCA, CMP, 0-3, , 1987-10, #### [facility] ([id number]) [address] [place] [address] 31893 Lymphocytes (Bld) [#/Vol] 1.8 10*3/uL Normal 1.0-3.5 [facility] Comment on above: Performed By: #### C BCA, CMP, 3039-3, , 1987-10, #### [facility] ([id number]) [address] [place] [address] 31886 Lymphocytes/100 WBC (Bld) 18.4 % Normal [facility] Comment on above: Performed By: #### C BCA, CMP, 0-3, , 1987-10, #### [facility] ([id number]) [address] [place] [address] 84155 MCH (RBC) [Entitic mass] 24.0 pg Low 27-34 [facility] Comment on above: Performed By: #### C BCA, CMP, 3040-3, 85748-0, 1987-10, #### [facility] ([id number]) [address] [place] [address] 70468 MCHC (RBC) [Mass/Vol] 31.8 g/dL Low 32-36 [facility] Comment on above: Performed By: #### C BCA, CMP, 3040-3, 94588-2, 1987-10, #### [facility] ([id number]) [address] [place] [address] 76099 MCV (RBC) [Entitic vol] 76 fL Low 80-100 [facility] Comment on above: Performed By: #### C HEATH, CMP, 3040-3, 57088-0, 1987-10, #### [facility] ([id number]) [address] [place] [address] 07565 Monocytes (Bld) [#/Vol] 0.5 10*3/uL Normal 0-0.9 [facility] Comment on above: Performed By: #### C HEATH CMP, 3039-3, , 1987-10, #### [facility] ([id number]) [address] [place] [address] 36935 Monocytes/100 WBC (Bld) 4.9 % Normal [facility] Comment on above: Performed By: #### C HEATH, CMP, 0-3, , 1987-10, #### [facility] ([id number]) [address] [place] [address] 10258 Neutrophils/100 WBC (Bld) 76.0 % Normal [facility] Comment on above: Performed By: #### Leila JOE, CMP, 0-3, , 1987-10, #### [facility] ([id number]) [address] [place] [address] 90007 Platelet mean volume (Bld) [Entitic vol] 8.0 fL Normal 7-12 [facility] Comment on above: Performed By: #### Leila JOE, CMP, 3040-3, , 1987-10, #### [facility] ([id number]) [address] [place] [address] 13127 Platelets (Bld) [#/Vol] 503 10*3/uL High 150-450 [facility] Comment on above: Performed By: #### C BCA, CMP, 3040-3, 20281-0, 1987-10, #### [facility] ([id number]) [address] [place] [address] 41670 RBC COUNT 4.75 X10E12/L Normal 3.80-5.20 [facility] Comment on above: Performed By: #### C BCA, CMP, 3040-3, 72890-3, 1987-10, #### [facility] ([id number]) [address] [place] [address] 32090 WBC (Bld) [#/Vol] 9.6 10*3/uL Normal 4.0-11.0 [facility] Comment on above: Performed By: #### C BCA, CMP, 3040-3, 74315-7, 1987-10, #### [facility] ([id number]) [address] [place] [address] 48529 COMPREHENSIVE METABOLIC PANE Van 10-01-2024 Albumin [Mass/Vol] 4.3 g/dL Normal 3.2-5.3 [facility] Comment on above: Performed By: #### C BCA, CMP, 3040-3, 86458-1, 1987-10, #### [facility] ([id number]) [address] [place] [address] 83655 ALP [Catalytic activity/Vol] 76 U/L Normal 39-130 [facility] Comment on above: Performed By: #### C BCA, CMP, 3040-3, 37081-5, 1987-10, #### [facility] ([id number]) [address] [place] [address] 17601 ALT [Catalytic activity/Vol] 26 U/L Normal 0-31 [facility] Comment on above: Performed By: #### C BCA, CMP, 3040-3, 63361-1, 1987-10, #### [facility] ([id number]) [address] [place] [address] 41570 Anion gap [Moles/Vol] 10 mmol/L Normal 5-15 [facility] Comment on above: Performed By: #### C BCA, CMP, 3040-3, 25028-4, 1987-10, #### [facility] ([id number]) [address] [place] [address] 98875 AST [Catalytic activity/Vol] 24 U/L Normal 0-41 [facility] Comment on above: Performed By: #### C BCA, CMP, 3040-3, 47169-8, 1987-10, #### [facility] ([id number]) [address] [place] [address] 30167 Bilirubin [Mass/Vol] 0.3 mg/dL Normal 0.3-1.2 [facility] Comment on above: Performed By: #### C BCA, CMP, 3040-3, 65829-9, 1987-10, #### [facility] ([id number]) [address] [place] [address] 99245 Calcium [Mass/Vol] 9.6 mg/dL Normal 8.5-10.5 [facility] Comment on above: Performed By: #### C BCA, CMP, 3040-3, 98918-1, 1987-10, #### [facility] ([id number]) [address] [place] [address] 02135 Chloride [Moles/Vol] 106 mmol/L Normal 98-109 [facility] Comment on above: Performed By: #### C BCA, CMP, 3040-3, 44013-5, 1987-10, #### [facility] ([id number]) [address] [place] [address] CO2 [Moles/Vol] 20 mmol/L Low 22-32 [facility] Comment on above: Performed By: #### C STEVE JOE, 3040-3, 86103-3, 1987-10, #### [facility] ([id number]) [address] [place] [address] 59258 Creatinine [Mass/Vol] 0.76 mg/dL Normal 0.40-1.00 [facility] Comment on above: Result Comment: METH OD TRACEABLE TO IDMS STANDARD Performed By: #### C STEVE JOE, 0-3, , 1987-10, #### [facility] ([id number]) [address] [place] [address] 45808 eGFR (CKD-EPI) NON-RACE DEPENDENT >90 Normal >59 [facility] Comment on above: Result Comment: Reported eGFR is based on the CKD-EPI 2020 equation that does not use a race coefficient. Performed By: #### C STEVE JOE, 0-3, , 1987-10, #### [facility] ([id number]) [address] [place] [address] 12603 Glucose [Mass/Vol] 106 mg/dL High 65-99 [facility] Comment on above: Performed By: #### C STEVE JOE, 0-3, , 1987-10, #### [facility] ([id number]) [address] [place] [address] 97761 Potassium [Moles/Vol] 3.7 mmol/L Normal 3.5-5.0 [facility] Comment on above: Performed By: #### C STEVE JOE, 3040-3, 08201-6, 1987-10, #### [facility] ([id number]) [address] [place] [address] Protein [Mass/Vol] 8.1 g/dL High 6.0-8.0 [facility] Comment on above: Performed By: #### C BCA, CMP, 3040-3, 77295-4, 1987-10, #### [facility] ([id number]) [address] [place] [address] 49448 Sodium [Moles/Vol] 136 mmol/L Normal 134-146 [facility] Comment on above: Performed By: #### C BCA, CMP, 3040-3, 94048-0, 1987-10, #### [facility] ([id number]) [address] [place] [address] 02136 Urea nitrogen [Mass/Vol] 5 mg/dL Normal 5-23 [facility] Comment on above: Performed By: #### C BCA, CMP, 3040-3, 57345-4, 1987-10, #### [facility] ([id number]) [address] [place] [address] 31235 BASIC METABOLIC PANLon 09-28 Anion gap [Moles/Vol] 10 mmol/L Normal 5-15 [facility] Comment on above: Performed By: #### C BCA, CMP, 3040-3, 09981-6, 1987-10, #### [facility] ([id number]) [address] [place] [address] 61900 Calcium [Mass/Vol] 9.2 mg/dL Normal 8.5-10.5 [facility] Comment on above: Performed By: #### C BCA, CMP, 3040-3, 26547-8, 1987-10, #### [facility] ([id number]) [address] [place] [address] 11263 Chloride [Moles/Vol] 107 mmol/L Normal 98-109 [facility] Comment on above: Performed By: #### C BCA, CMP, 3040-3, 47276-0, 1987-10, #### [facility] ([id number]) [address] [place] [address] 33450 CO2 [Moles/Vol] 20 mmol/L Low 22-32 [facility] Comment on above: Performed By: #### C BCA, CMP, 3040-3, 07810-9, 1987-10, #### [facility] ([id number]) [address] [place] [address] 74146 Creatinine [Mass/Vol] 0.78 mg/dL Normal 0.40-1.00 [facility] Comment on above: Result Comment: METH OD TRACEABLE TO IDMS STANDARD Performed By: #### C HEATH, CMP, 0-3, , 1987-10, #### [facility] ([id number]) [address] [place] [address] 80115 eGFR (CKD-EPI) NON-RACE DEPENDENT >90 Normal >59 [facility] Comment on above: Result Comment: Reported eGFR is based on the CKD-EPI 2020 equation that does not use a race coefficient. Performed By: #### C HEATH, CMP, 3040-3, 93363-0, 1987-10, #### [facility] ([id number]) [address] [place] [address] 22572 Glucose [Mass/Vol] 108 mg/dL High 65-99 [facility] Comment on above: Performed By: #### C BCA, CMP, 3040-3, 02179-8, 1987-10, #### [facility] ([id number]) [address] [place] [address] 74320 Potassium [Moles/Vol] 3.5 mmol/L Normal 3.5-5.0 [facility] Comment on above: Performed By: #### C BCA, CMP, 3040-3, , 1987-10, #### [facility] ([id number]) [address] [place] [address] 43187 Sodium [Moles/Vol] 137 mmol/L Normal 134-146 [facility] Comment on above: Performed By: #### C BCA, CMP, 3039-3, , 1987-10, #### [facility] ([id number]) [address] [place] [address] 54553 Urea nitrogen [Mass/Vol] 9 mg/dL Normal 5-23 [facility] Comment on above: Performed By: #### C BCA, CMP, 3039-3, , 1987-10, #### [facility] ([id number]) [address] [place] [address] 11600 CBC AND AUTO DIFFon 09-29-19 25 ABSOLUTE BASOPHIL 0.1 X10E9/L Normal 0.0-0.2 [facility] Comment on above: Performed By: #### C BCA, CMP, 3039-3, , 1987-10, #### [facility] ([id number]) [address] [place] [address] 67295 ABSOLUTE NEUTROPHIL 6.8 X10E9/L High 1.5-6.6 [facility] Comment on above: Performed By: #### C BCA, CMP, 0-3, , 1987-10, #### [facility] ([id number]) [address] [place] [address] 25649 Basophils/100 WBC (Bld) 1.3 % Normal [facility] Comment on above: Performed By: #### C BCA, CMP, 0-3, , 1987-10, #### [facility] ([id number]) [address] [place] [address] 05377 Eosinophils (Bld) [#/Vol] 0.0 10*3/uL Normal 0.0-0.4 [facility] Comment on above: Performed By: #### C HEATH [facility], 3039-3, , 1987-10, #### [facility] ([id number]) [address] [place] [address] 84729 Eosinophils/100 WBC (Bld) 0.1 % Normal [facility] Comment on above: Performed By: #### C HEATH [facility], 3039-08, , 1987-10, #### [facility] ([id number]) [address] [place] [address] 68682 Erythrocyte distribution width (RBC) [Ratio] 20.5 % High 11.5-15.0 [facility] Comment on above: Performed By: #### Leila JOE [facility], 3039-08, , 1987-10, #### [facility] ([id number]) [address] [place] [address] 21249 Hematocrit (Bld) [Volume fraction] 34.3 % Low 35-47 [facility] Comment on above: Performed By: #### C HEATH [facility], 3039-08, , 1987-10, #### [facility] ([id number]) [address] [place] [address] 11444 Hemoglobin (Bld) [Mass/Vol] 11.2 g/dL Low 11.7-15.5 [facility] Comment on above: Performed By: #### C HEATH [facility], 3039-08, , 1987-10, #### [facility] ([id number]) [address] [place] [address] 95479 Lymphocytes (Bld) [#/Vol] 3.4 10*3/uL Normal 1.0-3.5 [facility] Comment on above: Performed By: #### C BCA, CMP, 3039-3, , 1987-10, #### [facility] ([id number]) [address] [place] [address] 93634 Lymphocytes/100 WBC (Bld) 30.9 % Normal [facility] Comment on above: Performed By: #### C BCA, CMP, 3039-, , 1987-10, #### [facility] ([id number]) [address] [place] [address] 02904 MCH (RBC) [Entitic mass] 24.4 pg Low 27-34 [facility] Comment on above: Performed By: #### C HEATH, CMP, 3039-08, , 1987-10, #### [facility] ([id number]) [address] [place] [address] 95731 MCHC (RBC) [Mass/Vol] 32.7 g/dL Normal 32-36 [facility] Comment on above: Performed By: #### C BCA, CMP, 3039-08, , 1987-10, #### [facility] ([id number]) [address] [place] [address] 77344 MCV (RBC) [Entitic vol] 75 fL Low 80-100 [facility] Comment on above: Performed By: #### C BCA, CMP, 3039-3, , 1987-10, #### [facility] ([id number]) [address] [place] [address] 15130 Monocytes (Bld) [#/Vol] 0.7 10*3/uL Normal 0-0.9 [facility] Comment on above: Performed By: #### C BCA, CMP, 3039-, , 1987-10, #### [facility] ([id number]) [address] [place] [address] 21634 Monocytes/100 WBC (Bld) 6.2 % Normal [facility] Comment on above: Performed By: #### C BCA, CMP, 3040-3, 57285-8, 1987-10, #### [facility] ([id number]) [address] [place] [address] 59771 Neutrophils/100 WBC (Bld) 61.5 % Normal [facility] Comment on above: Performed By: #### C BCA, CMP, 0-3, 60607-5, 1987-10, #### [facility] ([id number]) [address] [place] [address] 32268 Platelet mean volume (Bld) [Entitic vol] 7.9 fL Normal 7-12 [facility] Comment on above: Performed By: #### C BCA, CMP, 3040-3, 34109-7, 1987-10, #### [facility] ([id number]) [address] [place] [address] 05579 Platelets (Bld) [#/Vol] 473 10*3/uL High 150-450 [facility] Comment on above: Performed By: #### C BCA, CMP, 3040-3, 72165-7, 1987-10, #### [facility] ([id number]) [address] [place] [id number] RBC COUNT 4.59 X10E12/L Normal 3.80-5.20 [facility] Comment on above: Performed By: #### C BCA, CMP, 3040-3, 58651-9, 1987-10, #### [facility] ([id number]) [address] [place] [address]37 WBC (Bld) [#/Vol] 11.0 10*3/uL Normal 4.0-11.0 [facility] Comment on above: Performed By: #### C STEVE JOE, 0-3, 33306-6, 1987-10, #### [facility] ([id number]) [address] [place] [address], [place] [address] CT ABDOMEN AND PELVIS W CONT on 09-28-2024 CT ABDOMEN AND PELVIS W CONT CT ABDOMEN AND PELVIS W CONT CT ABDOMEN AND PELVIS W CONT CLINICAL HISTORY:Right mid and lower pain - hx of 'ovarian remnant syndrome' and endometriosis COMPARISON: 07/07/2024. TECHNIQUE: CT abdomen and pelvis was performed utilizing the standard protocol following the uneventful administration of 100 cc Omnipaque 300 nonionic intravenous contrast. Coronal and sagittal reformatted images were generated and reviewed. Automated exposure control was utilized. FINDINGS: No acute findings lower thorax. Unremarkable liver, spleen, left adrenal gland. Benign-appearing right adrenal calcifications. Normal pancreas. Atypical observation within the deep aspect of the pelvis with soft tissue fullness near the vaginal cuff, right more pronounced than left. Normal kidneys. No dilatation or wall thickening of the bowel. Normal appendix. No acute appearing occlusion of the major visceral vasculature. Cholecystectomy. No aggressive osseous lesions. IMPRESSION: 1. Hysterectomy. Atypical observation deep within the pelvis with soft tissue fullness at the vaginal cuff, right more pronounced than left, findings are progressed with respect to 07/07/2024 comparison. Precise nature is indeterminate, these may represent ovarian remnants [with somewhat atypical location] and follicular changes. Pelvic MR could more optimally characterize this observation and assess for additional features of infiltrating endometriosis. All CT scans at this facility use dose modulation, iterative reconstruction, and/or weight based dosing when appropriate to reduce radiation dose to as low as reasonably achievable. Finalized by Patricio Power MD on 09/28/2024 1:22 AM Normal [facility] LIVER PANELon 09-28-2024 Albumin [Mass/Vol] 4.2 g/dL Normal 3.2-5.3 [facility] Comment on above: Performed By: #### C STEVE JOE, 0-3, 21176-9, 1987-10, #### [facility] ([id number]) [address] [place] [address] ALP [Catalytic activity/Vol] 66 U/L Normal 39-130 [facility] Comment on above: Performed By: #### C BCA, CMP, 3040-3, 26101-9, 1987-10, #### [facility] ([id number]) [address] [place] [address] 68041 ALT [Catalytic activity/Vol] 13 U/L Normal 0-31 [facility] Comment on above: Performed By: #### C BCA, CMP, 3040-3, 10556-2, 1987-10, #### [facility] ([id number]) [address] [place] [address] 54922 AST [Catalytic activity/Vol] 18 U/L Normal 0-41 [facility] Comment on above: Performed By: #### C BCA, CMP, 3040-3, 69186-0, 1987-10, #### [facility] ([id number]) [address] [place] [address] 87934 Bilirubin [Mass/Vol] 0.6 mg/dL Normal 0.3-1.2 [facility] Comment on above: Performed By: #### C BCA, CMP, 3040-3, 51404-4, 1987-10, #### [facility] ([id number]) [address] [place] [address] Bilirubin.indirect [Mass/Vol] mg/dL Normal 0.0-0.4 [facility] Comment on above: Performed By: #### C BCA, CMP, 3040-3, 63323-5, 1987-10, #### [facility] ([id number]) [address] [place] [address] Protein [Mass/Vol] 8.2 g/dL High 6.0-8.0 [facility] Comment on above: Performed By: #### C BCA, CMP, 3040-3, 07296-9, 1987-10, #### [facility] ([id number]) [address] [place] [address] 46517 URN MACROSCOPIC NURon 2024 BILIRUBIN AUDREY Negative Normal NEG [facility] Comment on above: Performed By: #### C BCA, CMP, 3040-3, 36618-0, 1987-10, #### [facility] ([id number]) [address] [place] [address] BLOOD/HGB AUDREY Negative Normal NEG [facility] Comment on above: Performed By: #### C BCA, CMP, 3039-3, , 1987-10, #### [facility] ([id number]) [address] [place] [address] [place] [address] GLUCOSE AUDREY Negative Normal NEG [facility] Comment on above: Performed By: #### C BCA, CMP, 0-3, 28814-3, 1987-10, #### [facility] ([id number]) [address] [place] [address] [place] [address] KETONES AUDREY Negative Normal NEG [facility] Comment on above: Performed By: #### C BCA, CMP, 3040-3, 03070-3, 1987-10, #### [facility] ([id number]) [address] [place] [address] [place] [address] LEUKOCYTE ESTERASE AUDREY Negative Normal NEG [facility] Comment on above: Performed By: #### C BCA, CMP, 3040-3, 23881-1, 1987-10, #### [facility] ([id number]) [address] [place] [address] NITRITE AUDREY Negative Normal NEG [facility] Comment on above: Performed By: #### C BCA, CMP, 3040-3, 46409-5, 1987-10, #### [facility] ([id number]) [address] [place] [address] PH AUDREY 6.0 Normal 5.0-8.5 [facility] Comment on above: Performed By: #### C BCA, CMP, 3040-3, 35868-3, 1987-10, #### [facility] ([id number]) [address] [place] [address] PROTEIN AUDREY Negative Normal NEG [facility] Comment on above: Performed By: #### C BCA, CMP, 3040-3, 58263-7, 1987-10, #### [facility] ([id number]) [address] [place] [address] SPECIFIC GRAVITY AUDREY <=1.005 Normal 1.003-1.035 [facility] Comment on above: Performed By: #### C BCA, CMP, 3040-3, 31387-2, 1987-10, #### [facility] ([id number]) [address] [place] [address]46[address] UROBILINOGEN AUDREY 0.2 eu/dL Normal <1.1 [facility] Comment on above: Performed By: #### C BCA, CMP, 3040-3, 93632-2, 1987-10, #### [facility] ([id number]) [address] [place] [address] ED Note-Physicianon 08-12-19 ED Note-Physician ED Note-Physician Basic Information Time Seen: Lexy Campos PA-C 08/10/2024 19:59 Chief Complaint Right sided abd pain radiates to back for 1 week, worse today. History of Present Illness Patient is a 39-year-old female with a history of endometriosis, ovarian cyst, cholecystectomy, hysterectomy and chronic right lower abdominal pain who presents to the ED with acute on chronic pain. Patient states the pain has been worsening for the past week and notes radiation to her back. Patient states this pain is consistent with prior flareups. She notes nausea but denies any vomiting. Patient states she took Toradol and tramadol earlier today with minimal relief in symptoms. Patient denies any dysuria/hematuria, fevers, or changes in bowel movements. She states she is scheduled to have surgical repair of the endometrioma by her [employer] out of [facility] in [place]. Review of Systems A 10 point review of systems is negative except as noted above. Medical and Surgical History: Reviewed and noted Social history: Lives at home Family History: Reviewed. Tobacco: Denies Physical Exam Vitals & Measurements T: 36.7 ???C(Oral) HR: 126(Peripheral) RR: 20 BP: 147/94 SpO2: 99% HT: 165.10 cm WT: 89.3 kg BMI: 32.76 General: The patient appears well and in no apparent distress. Patient is resting comfortably on cart. Skin: Warm, dry, no pallor noted. Head: Normocephalic, atraumatic Eye: PERRLA, EOMI ENT: Moist mucus membranes Cardiovascular: Regular rate normal peripheral perfusion Respiratory: No respiratory distress no accessory muscle use no obvious audible wheezing Chest Wall: no deformity Musculoskeletal: normal ROM, no deformity GI: Mild right lower quadrant tenderness to palpation, soft no obvious distention. No rebound or rigidity. No guarding. Neurological: A&O moves all extremities equal strength and symmetry Psychiatric: Cooperative and appropriate Medical Decision Making Patient is a 39-year-old female with a history of endometriosis, ovarian cyst, cholecystectomy, hysterectomy and chronic right lower abdominal pain who presents to the ED with acute on chronic pain. Patient is hemodynamically stable and afebrile. She is given Toradol and Zofran. Lab work is reviewed without any significant changes from baseline. Urinalysis is negative urinary tract infection. Patient was updated on the results. Patient is requesting additional pain medication. I offered acetaminophen, however she is refusing this. Patient is requesting Dilaudid. An OARRS report is ran showing the patient has an extensive history of narcotic prescriptions. Patient has been seen in the ED 3 times within the past 8 days with the same complaints. I discussed with the patient the emergency department does not manage chronic pain. Patient will follow-up with her [employer] for further management of care. She was advised to return to the ED the any new or worsening symptoms. Patient is understanding of the plan and all questions were answered. Assessment/Plan Chronic abdominal pain (R10.9: Unspecified abdominal [...] UA with Cult Rflx Medications Administered Given ketorolac 30 mg/mL Inj 1 mL, 30 mg, IntraMuscular ondansetron 4 mg Dis Tab, 4 mg, Oral Disposition Plan Patient Discharge Condition stable Discharge Disposition home Discharge Prescription List Prescriptions No active prescription medications Follow-up With When Contact Information XXXX NONE In 3 days 08/13/2024 [facility] Additional Instructions: Call to schedule a follow-up appointment with your surgeon for further management of care. Return to the ED with any new or worsening symptoms. Rose Royal In 3 days 08/13/2024 EST [address] [place] [address]- [facility] (1) Additional Instructions: Patient Education Chronic Pain, Adult Attestation Patient seen and evaluated by the physician optometric assistant. Attending physician was present in the emergency department and supervised care. This visit was performed by both the physician and an APC. I performed all aspects of the MDM as documented. This report was transcribed using voice recognition software. Every effort was made to ensure accuracy, however, inadvertently computerized certified ophthalmic medical technician mistakes may be present. I performed a substantive part of the MDM during the patient???s E/M visit. I personally made or approved the documented management plan and acknowledge its risk of complications (more content not included)... Normal [facility] Comment on above: Result Comment: Elec tronically Signed By: Lexy Campos PA-C\.br\Date and Time Signed: 08/10/24 22:53 EST\.br\Electronically Co-Signed By: Jignesh Dumont DO\.br\Date and Time Co-Signed: 08/11/24 00:10 EST BMPon 08-10-2024 Anion gap [Moles/Vol] 12 mmol/L Normal 6-16 [facility] Comment on above: Performed By: #### 2 [id number] #### [facility] [address] [place] [address] Calcium [Mass/Vol] 9.7 mg/dL Normal 8.9-11.1 [facility] Comment on above: Performed By: #### 2 [id number] #### [facility] [address] [place] [address] Chloride [Moles/Vol] 105 mmol/L Normal 101-111 [facility] Comment on above: Performed By: #### 2 [id number] #### [facility] [address] [place] [address] CO2 [Moles/Vol] 24 mmol/L Normal 21-31 [facility] Comment on above: Performed By: #### 2 [id number] #### [facility] [address] [place] [address] Creatinine [Mass/Vol] 0.7 mg/dL Normal 0.5-1.3 [facility] Comment on above: Performed By: #### 2 [id number] #### [facility] [address] [place] [address] Glucose [Mass/Vol] 107 mg/dL Normal 55-199 [facility] Comment on above: Performed By: #### 2 [id number] #### [facility] [address] [place] [address] Potassium [Moles/Vol] 3.5 mmol/L Normal 3.5-5.3 [facility] Comment on above: Performed By: #### 2 [id number] #### [facility] [address] [place] [address] Sodium [Moles/Vol] 137 mmol/L Normal 135-145 [facility] Comment on above: Performed By: #### 2 [id number] #### [facility] [address] [place] [address] Urea nitrogen [Mass/Vol] 7 mg/dL Normal 5-21 [facility] Comment on above: Performed By: #### 2 [id number] #### [facility] [address] [place] [address] Urea nitrogen/Creatinine [Mass ratio] 10 No Units Normal 10-20 [facility] Comment on above: Performed By: #### 2 [id number] #### [facility] [address] [place] [address] CBC w/ Auto Diffon 5 Basophils/100 WBC (Bld) 2.5 % High 0.0-2.0 [facility] Comment on above: Performed By: #### 2 [id number] #### [facility] [address] [place] [address] Basophils/Leukocytes Auto (Bld) [Pure # fraction] 0.2 E9/L Normal 0.0-0.2 [facility] Comment on above: Performed By: #### 2 519141 #### [facility] [address] [place] [address] Eosinophils (Bld) [#/Vol] 0.0 E9/L Normal 0.0-0.5 [facility] Comment on above: Performed By: #### 2 424344 #### [facility] [address] [place] [address] Eosinophils/100 WBC (Bld) 0.4 % Normal 0.0-8.0 [facility] Comment on above: Performed By: #### 2 [id number] #### [facility] [address] [place] [address] Erythrocyte distribution width (RBC) [Ratio] 20.3 % High 10.9-14.2 [facility] Comment on above: Performed By: #### 2 [id number] #### [facility] [address] [place] [address] Hematocrit (Bld) [Volume fraction] 35.2 % Normal 34.0-46.0 [facility] Comment on above: Performed By: #### 2 [id number] #### [facility] [address] [place] [address] Hemoglobin (Bld) [Mass/Vol] 11.3 g/dL Low 12.0-16.0 [facility] Comment on above: Performed By: #### 2 [id number] #### [facility] [address] [place] [address] Lymphocytes (Bld) [#/Vol] 1.0 E9/L Normal 1.0-4.0 [facility] Comment on above: Performed By: #### 2 [id number] #### [facility] [address] [place] [address] Lymphocytes/100 WBC (Bld) 12.8 % Low 14.0-50.0 [facility] Comment on above: Performed By: #### 2 535278 #### [facility] [address] [place] [address] MCH (RBC) [Entitic mass] 24.0 pg Low 27.0-34.0 [facility] Comment on above: Performed By: #### 2 915953 #### [facility] [address] [place] [address] MCHC (RBC) [Mass/Vol] 32.2 g/dL Normal 31.4-36.0 [facility] Comment on above: Performed By: #### 2 630798 #### [facility] [address] [place] [address] MCV (RBC) [Entitic vol] 74.5 fL Low 80.0-100.0 [facility] Comment on above: Performed By: #### 2 [id number] #### [facility] [address] [place] [address] Monocytes (Bld) [#/Vol] 0.4 E9/L Normal 0.2-1.0 [facility] Comment on above: Performed By: #### 2 [id number] #### [facility] [address] [place] [address] Neutrophils (Bld) [#/Vol] 5.9 E9/L Normal 2.0-7.5 [facility] Comment on above: Performed By: #### 2 365360 #### [facility] [address] [place] [address] Neutrophils/100 WBC (Bld) 78.8 % High 36.0-75.0 [facility] Comment on above: Performed By: #### 2 [id number] #### [facility] [address] [place] [address] Platelet mean volume (Bld) [Entitic vol] 7.6 fL Normal 6.4-10.8 [facility] Comment on above: Performed By: #### 2 138800 #### [facility] [address] [place] [address] Platelets (Bld) [#/Vol] 563.0 E9/L High 150.0-500.0 [facility] Comment on above: Performed By: #### 2 [id number] #### [facility] [address] [place] [address] RBC (Bld) [#/Vol] 4.7 E12/L Normal 4.3-5.9 [facility] Comment on above: Performed By: #### 2 284133 #### [facility] [address] [place] [address] WBC corrected for nucl RBC Auto (Bld) [#/Vol] 7.5 E9/L Normal 4.0-11.0 [facility] Comment on above: Performed By: #### 2 [id number] #### [facility] [address] [place] [address] CHEMISTRYOrdered By: SYSTEM SYSTEM on 08-10-2024 Albumin [...] mg/mg Normal 10 - 20 Remisol Chem ED Clinical Summaryon 2024 ED Clinical Summary ED Clinical Summary [address] [address] ED Clinical Summary Person Information [facility] Age: 39 Years : 1985 Sex: Female Language: Citizen Of [place] PCP: NONE, XXXX Marital Status: Visit Id: Visit Reason: Nausea; Abdominal pain reevaluation; ABD PAIN Speciality: Acuity: 3 Enc Type: Emergency Med Service: Emergency Arrival: 08/10/2024 19:35:47 Discharge: 08/10/2024 22:42:09 LOS: 000 03:07 Checkin: 08/10/2024 19:35:47 Checkout: 08/10/2024 22:42:09 Dispo Type: Home (Routine DC) EVENTS: Event Name Event Status Request Date/Time Start Date/Time Complete Date/Time Arrive Complete 08/10/2024 19:35:47 08/10/2024 19:35:47 08/10/2024 19:35:47 Document Home Meds Request 08/10/2024 19:35:47 Triage Complete 08/10/2024 19:35:47 08/10/2024 19:57:06 08/10/2024 19:57:06 Bed Assign Complete 08/10/2024 19:50:45 08/10/2024 19:50:45 08/10/2024 19:50:45 Dr Exam Complete 08/10/2024 19:50:45 08/10/2024 19:59:41 08/10/2024 19:59:41 RN Exam Complete 08/10/2024 19:50:45 08/10/2024 20:33:36 08/10/2024 20:33:36 Registration Complete 08/10/2024 19:59:32 08/10/2024 19:59:32 08/10/2024 19:59:32 Reg Complete Request 08/10/2024 19:59:32 Reg Bed Request Complete 08/10/2024 19:59:32 08/10/2024 19:59:32 08/10/2024 19:59:32 Registration Complete 08/10/2024 19:59:41 08/10/2024 20:02:24 08/10/2024 20:02:24 Dr Exam Complete 08/10/2024 20:04:09 08/10/2024 20:04:09 08/10/2024 20:04:09 Registration Request 08/10/2024 20:04:09 Pending Labs Complete 08/10/2024 20:47:45 08/10/2024 21:08:29 08/10/2024 22:05:50 Lab Complete 08/10/2024 20:47:45 08/10/2024 21:58:41 Meds Admin Complete 08/10/2024 20:47:45 08/10/2024 21:00:41 Meds Admin Complete 08/10/2024 20:48:51 08/10/2024 21:00:41 Pending Labs Complete 08/10/2024 21:33:51 08/10/2024 21:33:51 08/10/2024 21:58:41 Lab Complete 08/10/2024 21:33:51 08/10/2024 21:33:51 08/10/2024 21:58:41 Discharge Complete 08/10/2024 22:33:08 08/10/2024 22:42:16 08/10/2024 22:42:16 Transfer Complete 08/10/2024 22:42:16 08/10/2024 22:42:16 08/10/2024 22:42:16 ADDRESS: [address] [place] [id number] [facility] DOC NOTES: MEDICAL INFORMATION: Prescriptions Given: Medications to Continue with No Changes Other Medications diflunisal (diflunisal 500 mg Tab) 1 Tablets By Mouth every 12 hours. Refills: 0. PATIENT EDUCATION INFORMATION: Instructions: Chronic Pain, Adult Follow up: With: Address: When: [address], [address], [place] [address] Business (1) In 3 days 08/13/2024 With: Address: When: XXYANELIS RANGEL [place] In 3 days 08/13/2024 Comments: Call to schedule a follow-up appointment with your surgeon for further management of care. Return to the ED with any new or worsening symptoms. DIAGNOSIS: Chronic abdominal pain; Endometrioma; Other chronic pain Normal [facility] ED Patient Summaryon 025 ED Patient Summary ED Patient Summary [address] [id number] Patient Discharge Instructions Person Information Name: ANTONIA NOYOLA Age: 39 Years Arrival Date: 08/10/2024 19:35:47 Discharge Diagnosis: Chronic abdominal pain; Endometrioma; Other chronic pain Primary Care Physician: SHAZIA, XXXX Provider Information Primary Provider: Jignesh Dumont DO Advanced Clinical Informatics Manager:Lexy Campos PA-C The exam and treatment you received in the Emergency Department were for an urgent problem and are not intended as complete care. It is important that you follow up with a doctor, nurse practitioner, or physician???s optometric assistant for ongoing care. If your symptoms [...] Follow-up Instructions: With: Address: When: [address], [address], [place] [address] [place] (1) In 3 days 08/13/2024 With: Address: When: XXXX SHAZIA , [place] In 3 days 08/13/2024 Comments: Call to schedule a follow-up appointment with your surgeon for further management of care. Return to the ED with any new or worsening symptoms. In the event that this physician does not participate in your insurance network, please consult with your insurance company to find a nearby participating provider. Patient Education Materials: Chronic Pain, Adult A MESSAGE TO ALL PATIENTS REGARDING OPIOIDS PRESCRIPTION OPIOIDS: WHAT YOU NEED TO KNOW Prescription opioids can be used to help relieve epvilszu-pp-amufod pain and are often prescribed following a [...] the toilet, following guidance from the Food (more content not included)... Normal [facility] HEMATOLOGYOrdered By: SYSTEM SYSTEM on 08-10-2024 Basophils/100 [...] 11.0 E9/L Remisol Heme Hep Func Panelon 08-10-2024 Albumin [Mass/Vol] 4.5 g/dL Normal 3.3-5.0 [facility] Comment on above: Performed By: #### 2 [id number] #### [facility] [address] [place] [address] Albumin/Globulin (S) [Mass conc ratio] 1.4 Normal 1.1-2.2 [facility] Comment on above: Performed By: #### 2 [id number] #### [facility] [address] [place] [address] ALP [Catalytic activity/Vol] 61 Int._Unit/L Normal 21-98 [facility] Comment on above: Performed By: #### 2 [id number] #### [facility] [address] [place] [address] ALT No additional P-5'-P [Catalytic activity/Vol] 16 Int._Unit/L Normal 6-46 [facility] Comment on above: Performed By: #### 2 [id number] #### [facility] [address] [place] [address] AST [Catalytic activity/Vol] 14 Int._Unit/L Normal 5-43 [facility] Comment on above: Performed By: #### 2 [id number] #### [facility] [address] [place] [address] Bilirubin [Mass/Vol] 0.5 mg/dL Normal 0.0-1.1 [facility] Comment on above: Performed By: #### 2 [id number] #### [facility] [address] [place] [address] Bilirubin.direct [Mass/Vol] 0.1 mg/dL Normal 0.0-0.4 [facility] Comment on above: Performed By: #### 2 [id number] #### [facility] [address] [place] [address] Bilirubin.indirect [Mass or moles/Vol] 0.4 mg/dL Normal 0.1-0.9 [facility] Comment on above: Performed By: #### 2 [id number] #### [facility] [address] [place] [address] Globulin (S) [Mass/Vol] 3.3 g/dL Normal 1.4-4.0 [facility] Comment on above: Performed By: #### 2 [id number] #### [facility] [address] [place] [address] Protein [Mass/Vol] 7.8 g/dL Normal 6.0-7.8 [facility] Comment on above: Performed By: #### 2 [id number] #### [facility] [address] [place] [address] Lipase Levelon 08-10-2024 Lipase [Catalytic activity/Vol] 38 U/L Normal 13-58 [facility] Comment on above: Performed By: #### 2 [id number] #### [facility] [address] [place] [address] UA with Cult Rflxon 08-10-19 25 Bilirubin Ql (U) Negative Normal Negative [facility] Comment on above: Performed By: #### 4 [id number] #### [facility] [address] [place] [address] Clarity (U) Clear Normal Clear [facility] Comment on above: Performed By: #### 4 [id number] #### [facility] [address] [place] [address] Color (U) Colorless Abnormal Yellow [facility] Comment on above: Result Comment: Micr oscopic readings are only performed on those samples that meet specific criteria set forth by [facility]. Performed By: #### 4 [id number] #### [facility] [address] [place] [address] Glucose Ql (U) Negative Normal Negative [facility] Comment on above: Performed By: #### 4 [id number] #### [facility] [address] [place] [address] Hemoglobin Auto test strip (U) [Mass/Vol] Negative Normal Negative [facility] Comment on above: Performed By: #### 4 [id number] #### [facility] [address] [place] [address] Ketones Auto test strip Ql (U) Negative Normal Negative [facility] Comment on above: Performed By: #### 4 [id number] #### [facility] [address] [place] [address] Leukocyte esterase Auto test strip Ql (U) Negative Normal Negative [facility] Comment on above: Performed By: #### 4 [id number] #### [facility] [address] [place] [address] Nitrite Auto test strip Ql (U) Negative Normal Negative [facility] Comment on above: Performed By: #### 4 [id number] #### [facility] [address] [place] [address] pH (U) 7.5 [pH] Invalid Interpretation Code 5.0-9.0 [facility] Comment on above: Performed By: #### 4 [id number] #### [facility] [address] [place] [address] Protein Ql (U) Negative Normal Negative [facility] Comment on above: Performed By: #### 4 [id number] #### [facility] [address] [place] [address] Specific gravity (U) [Rel density] 1.005 Invalid Interpretation Code 1.005-1.030 [facility] Comment on above: Performed By: #### 4 [id number] #### [facility] [address] [place] [address] Urobilinogen (U) [Mass/Vol] Negative Normal Negative [facility] Comment on above: Performed By: #### 4 [id number] #### [facility] [address] [place] [address] Type of Urine collection method Clean Catch Normal [facility] Comment on above: Performed By: #### 4 [id number] #### [facility] [address] [place] [address] URINALYSISOrdered By: SYSTEM SYSTEM on 08-10-2024 Bilirubin Ql (U) Negative Normal Negativemg/ dL [facility] UA Auto SS Clarity (U) Clear (08/10/24 8:58 PM) Normal Clear [facility] UA Auto SS Color (U) Colorless 1 *ABN* (08/10/24 8:58 PM) Invalid Interpretation Code Yellow [facility] UA Auto SS Comment on above: Interpretive Data: M icroscopic readings are only performed on those samples that meet specific criteria set forth by [facility]. Glucose Ql (U) Negative Normal Negativemg/ [...] dL [facility] UA Auto SS pH (U) 7.5 *NA* (08/10/24 8:58 PM) Invalid Interpretation Code 5.0 - 9.0 [facility] UA Auto SS Protein Ql (U) Negative Normal Negativemg/ dL [facility] UA Auto SS Specific gravity (U) [Rel density] 1.005 *NA* (08/10/24 8:58 PM) Invalid Interpretation Code 1.005 - 1.030 [facility] UA Auto SS Urobilinogen (U) [Mass/Vol] Negative Normal Negativemg/ dL [facility] UA Auto SS URINALYSISOrdered By: Lexy Campos on 08-10-2024 UA Spec Desc Clean Catch (08/10/24 8:58 PM) Normal [facility] UA Auto SS Work Phone: eGFRon 08-10-2024 eGFR 114 mL/min/1.73 m2 Normal >=59 [facility] Comment on above: Performed By: #### 1 [id number] #### [facility] [address] [place] [address] ED Note-Physicianon 08-07-19 ED Note-Physician ED Note-Physician Basic Information Time Seen: Juwan SCOTT, Benjy Leone. 08/05/2024 18:06 Chief Complaint pt seen multiple [...] with pain management as well as her ELECTRICIAN SUPERVISOR SUBSTATION at [facility] in [place]. She denies any relief in her pain. [...] and Complexity of Problems Differential Diagnosis: [] [facility] Data External documents reviewed: [] My [...] she needs to have follow-up with her ELECTRICIAN SUPERVISOR SUBSTATION for likely surgery if is causing this much pain. Abdomen is soft with no rebound tenderness or guarding noted. No acute distress. She was requesting a IM shot. I discussed that Percocet is going to give at home, and I did give her a to go pack, and discussed that she needs a follow-up with either pain management or an ELECTRICIAN SUPERVISOR SUBSTATION for chronic pain. Follow-up with your primary [...] With When Contact Information Pain Clinic: [facility] [phone] In 3 days 08/08/2024 EST Additional Instructions: Call for diagnosis based follow up Savannah Petersen In 3 days 08/08/[address] [place] [address]- [facility] (1) Additional Instructions: Call Dr for diagnosis based follow up Patient Education Abdominal Pain, Adult, Uwdo-fw-Cjfw Attestation Patient seen and evaluated by the physician optometric assistant. Attending physician was present in the emergency department and supervised care. This visit was performed by both the physician and an APC. I performed all aspects of the MDM as documented. This report was transcribed using voice recognition software. Every effort was made to ensure accuracy, however, inadvertently computerized certified ophthalmic medical technician mistakes may be present. Appropriate healthcare PPE [...] as abo (more content not included)... Normal [facility] Comment on above: Result Comment: Elec tronically [...] known endometrioma pelvic mask. She follows with ELECTRICIAN SUPERVISOR SUBSTATION out of [place]. She was seen here couple of days [...] made to ensure accuracy, however, inadvertently computerized certified ophthalmic medical technician mistakes may be present. Appropriate healthcare PPE [...] Diagnostic Results No qualifying data available. Normal [facility] Comment on above: Result Comment: Elec tronically Signed By: Sean Frazier PA-C\.br\Date and Time Signed: 08/05/24 11:55 EST\.br\Electronically Co-Signed By: Dimitri Vuong MD\.br\Date and Time Co-Signed: 08/07/24 08:25 EST ED Clinical Summaryon 2024 ED Clinical Summary ED Clinical Summary [address] [address] ED Clinical Summary Person Information Name: ANTONIA NOYOLA/[facility] Age: 39 Years : 1985 Sex: Female [...] 08/05/2024 19:29:44 08/05/2024 19:29:44 08/05/2024 19:29:44 ADDRESS: [address] [place] [address] [place] [id number] [facility] DOC NOTES: MEDICAL INFORMATION: Prescriptions Given: Medications to Continue with No Changes Other Medications diflunisal (diflunisal 500 mg Tab) 1 Tablets By Mouth every 12 hours. Refills: 0. PATIENT EDUCATION INFORMATION: Instructions: Abdominal Pain, Adult, Oygx-ik-Psax Follow up: With: Address: When: Pain Clinic: [facility] [phone] In 3 days 08/08/2024 Comments: Call for diagnosis based follow up With: Address: When: Savannah Petersen [address] [place] [address] [facility] () In 3 days 08/08/2024 Comments: Call for diagnosis based follow up DIAGNOSIS: Chronic abdominal pain; Endometrioma; Other chronic pain Normal [facility] ED Clinical Summary ED Clinical Summary [address] [address] ED Clinical Summary Person Information Name: ANTONIA NOYOLA/[facility] Grace Age: 39 Years : 1985 Sex: [...] 08/05/2024 11:45:03 ADDRESS: [address] [place] [id number] PHYS DOC NOTES: MEDICAL INFORMATION: Prescriptions Given: Medications to Continue with No Changes Other Medications alprazolam (alprazolam 0.25 mg Tab) budesonide-formoterol (Symbicort 80/4.5 inhalation aerosol with adapter) citalopram (citalopram 20 mg Tab) By Mouth every day. diflunisal (diflunisal 500 mg Tab) 1 Tablets By Mouth every 12 hours. Refills: 0. PATIENT EDUCATION INFORMATION: Instructions: Chronic Pain, Adult Follow up: With: Address: When: XXXX KARISHMA RANGEL In 3 days 08/08/2024 Comments: Follow-up with your OBGYN surgeon DIAGNOSIS: Chronic abdominal pain; Endometrioma; Other chronic pain Normal [facility] ED Patient Summaryon 025 ED Patient Summary ED Patient Summary [place] [id number] Patient Discharge Instructions Person Information Name: ANTONIA NOYOLA Age: 39 Years Arrival Date: 08/05/2024 18:00:36 Discharge Diagnosis: Chronic abdominal pain; Endometrioma; Other chronic pain Primary Care Physician: NONE, XXXX Provider Information Primary Provider: Advanced Clinical Informatics Manager:Benjy Echeverria PA-C The exam and treatment you received in the Emergency Department were for an urgent problem and are not intended as complete care. It is important that you follow up with a doctor, nurse practitioner, or physician???s optometric assistant for ongoing care. If your symptoms become worse or you do not improve as expected and you are unable to reach your usual health care provider, you should return to the Emergency Department. We are available 24 hours a day. NATONIA NOYOLA has been given the following list of patient education materials, prescriptions and follow-up instructions: Follow-up Instructions: With: Address: When: Pain Clinic: [facility] [phone] In 3 days 08/08/2024 Comments: Call Dr for diagnosis based follow up With: Address: When: Savannah Petersen [address] [place] [place] [address] Business (1) In 3 days 08/08/2024 Comments: Call Dr for diagnosis based follow up In the event that this physician does not participate in your insurance network, please consult with your insurance company to find a nearby participating provider. Patient Education Materials: Abdominal Pain, Adult, Axtn-kz-Jqjf A MESSAGE TO ALL PATIENTS REGARDING OPIOIDS PRESCRIPTION OPIOIDS: WHAT YOU NEED TO KNOW Prescription opioids can be used to help relieve dvysfwbg-ro-rohhjx pain and are often prescribed following a [...] Administration (www.fda.gov/Drugs/Res (more content not included)... Normal [facility] ED Patient Summary ED Patient Summary [place] [id number] Patient Discharge Instructions Person Information Name: ANTONIA NOYOLA Age: 39 Years Arrival Date: 08/05/2024 11:06:17 Discharge Diagnosis: Chronic abdominal pain; Endometrioma; Other chronic pain Primary Care Physician: NONE, XXXX Provider Information Primary Provider: Dimitri Vuong MD Advanced Clinical Informatics Manager:Sean Frazier PA-C The exam and treatment you received in the Emergency Department were for an urgent problem and are not intended as complete care. It is important that you follow up with a doctor, nurse practitioner, or physician???s optometric assistant for ongoing care. If your symptoms become worse or you do not improve as expected and you are unable to reach your usual health care provider, you should return to the Emergency Department. We are available 24 hours a day. ANTONIA NOYOLA has been given the following list of patient education materials, prescriptions and follow-up instructions: Follow-up Instructions: With: Address: When: XXXX NONE , [place] In 3 days 08/08/2024 Comments: Follow-up with your OBGYN surgeon In the event that this physician does not participate in your insurance network, please consult with your insurance company to find a nearby participating provider. Patient Education Materials: Chronic Pain, Adult A MESSAGE TO ALL PATIENTS REGARDING OPIOIDS PRESCRIPTION OPIOIDS: WHAT YOU NEED TO KNOW Prescription opioids can be used to help relieve pajevfeg-xm-gjlgfc pain and are often prescribed following a [...] be struggling with addiction, tell your health infant childcare provider and (more content not included)... Normal [facility] B hCG Qualon 08-02-2024 Beta HCG ( test) Ql Negative Normal [facility] Comment on above: Performed By: #### 2 [id number] #### [facility] [address] [place] [address] BMPOrdered By: SYSTEM SYSTEM on 08-02-2024 Anion gap [Moles/Vol] 14 mmol/L Normal 6-16 Rem isol Chem Comment on above: Performed By: #### 2 [id number] #### [facility] [address] [place] [address] Calcium [Mass/Vol] 9.8 mg/dL Normal 8.9-11.1 Remiso l Chem Comment on above: Performed By: #### 2 [id number] #### [facility] [address] [place] [address] Chloride [Moles/Vol] 106 mmol/L Normal 101-111 Carlyle lucinda Chem Comment on above: Performed By: #### 2 [id number] #### [facility] [address] [place] [address] CO2 [Moles/Vol] 23 mmol/L Normal 21-31 Remisol C hem Comment on above: Performed By: #### 2 [id number] #### [facility] [address] [place] [address] Creatinine [Mass/Vol] 0.7 mg/dL Normal 0.5-1.3 Rem isol Chem Comment on above: Performed By: #### 2 [id number] #### [facility] [address] [place] [address] Glucose [Mass/Vol] 104 mg/dL Normal 55-199 Remiso l Chem Comment on above: Performed By: #### 2 [id number] #### [facility] [address] [place] [address] Potassium [Moles/Vol] 3.9 mmol/L Normal 3.5-5.3 Rem isol Chem Comment on above: Performed By: #### 2 [id number] #### [facility] [address] [place] [address] Sodium [Moles/Vol] 139 mmol/L Normal 135-145 Remiso l Chem Comment on above: Performed By: #### 2 [id number] #### [facility] [address] [place] [address] Urea nitrogen [Mass/Vol] 6 mg/dL Normal 5-21 Remisol Chem Comment on above: Performed By: #### 2 [id number] #### [facility] [address] [place] [address] BMPon 08-02-2024 Urea nitrogen/Creatinine [Mass ratio] 9 No Units Low 10-20 [facility] Comment on above: Performed By: #### 2 [id number] #### [facility] [address] [place] [address] CBC w/ Auto Diffon Acanthocytes LM Ql (Bld) PRESENT Invalid Interpretation Code [facility] Comment on above: Performed By: #### 2 [id number] #### [facility] [address] [place] [address] Hypochromia Auto Ql (Bld) PRESENT Invalid Interpretation Code [facility] Comment on above: Performed By: #### 2 [id number] #### [facility] [address] [place] [address] Microcytes Ql (Bld) PRESENT Invalid Interpretation Code [facility] Comment on above: Performed By: #### 2 [id number] #### [facility] [address] [place] [address] RBC size Nom (Bld) SEE MORPHOLOGY Invalid Interpretation Code [facility] Comment on above: Performed By: #### 2 [id number] #### [facility] [address] [place] [address] CBC w/ Auto DiffOrdered By: SYSTEM SYSTEM on 08-02-2024 Basophils/100 WBC (Bld) 1.1 % Normal 0.0-2.0 R emisol Heme Comment on above: Performed By: #### 2 [id number] #### [facility] [address] [place] [address] Basophils/Leukocytes Auto (Bld) [Pure # fraction] 0.1 E9/L Normal 0.0-0.2 Remisol Heme Comment on above: Performed By: #### 2 [id number] #### [facility] [address] [place] [address] Eosinophils (Bld) [#/Vol] 0.0 E9/L Normal 0.0-0.5 [facility] Heme Comment on above: Performed By: #### 2 [id number] #### [facility] [address] [place] [address] Eosinophils/100 WBC (Bld) 0.1 % Normal 0.0-8.0 [facility] Heme Comment on above: Performed By: #### 2 [id number] #### [facility] [address] [place] [address] Erythrocyte distribution width (RBC) [Ratio] 20.3 % High 10.9-14.2 [facility] Heme Comment on above: Performed By: #### 2 [id number] #### [facility] [address] [place] [address] Hematocrit (Bld) [Volume fraction] 37.6 % Normal 34.0-46.0 [facility] Heme Comment on above: Performed By: #### 2 [id number] #### [facility] [address] [place] [address] Hemoglobin (Bld) [Mass/Vol] 12.2 g/dL Normal 12.0-16.0 [facility] Heme Comment on above: Performed By: #### 2 [id number] #### [facility] [address] [place] [address] Lymphocytes (Bld) [#/Vol] 1.8 E9/L Normal 1.0-4.0 [facility] Heme Comment on above: Performed By: #### 2 [id number] #### [facility] [address] [place] [address] Lymphocytes/100 WBC (Bld) 27.3 % Normal 14.0-50.0 [facility] Heme Comment on above: Performed By: #### 2 [id number] #### [facility] [address] [place] [address] MCH (RBC) [Entitic mass] 23.8 pg Low 27.0-34.0 Rem[facility] Heme Comment on above: Performed By: #### 2 [id number] #### [facility] [address] [place] [address] MCHC (RBC) [Mass/Vol] 32.4 g/dL Normal 31.4-36.0 Rem isol Heme Comment on above: Performed By: #### 2 [id number] #### [facility] [address] [place] [address] MCV (RBC) [Entitic vol] 73.5 fL Low 80.0-100.0 R emisol Heme Comment on above: Performed By: #### 2 [id number] #### [facility] [address] [place] [address] Monocytes (Bld) [#/Vol] 0.3 E9/L Normal 0.2-1.0 R emisol Heme Comment on above: Performed By: #### 2 309138 #### [facility] [address] [place] [address] Neutrophils (Bld) [#/Vol] 4.3 E9/L Normal 2.0-7.5 Rem[facility] Heme Comment on above: Performed By: #### 2 [id number] #### [facility] [address] [place] [address] Neutrophils/100 WBC (Bld) 66.7 % Normal 36.0-75.0 [facility] Heme Comment on above: Performed By: #### 2 [id number] #### [facility] [address] [place] [address] Platelet mean volume (Bld) [Entitic vol] 7.4 fL Normal 6.4-10.8 Rem[facility] Heme Comment on above: Performed By: #### 2 [id number] #### [facility] [address] [place] [address] Platelets (Bld) [#/Vol] 452.0 E9/L Normal 150.0-500.0 Rem[facility] Heme Comment on above: Performed By: #### 2 132326 #### [facility] [address] [place] [address] RBC (Bld) [#/Vol] 5.1 E12/L Normal 4.3-5.9 [facility] Heme Comment on above: Performed By: #### 2 [id number] #### [facility] [address] [place] [address] WBC corrected for nucl RBC Auto (Bld) [#/Vol] 6.4 E9/L Normal 4.0-11.0 Remisol H tracie Comment on above: Performed By: #### 2 [id number] #### [facility] [address] [place] [address] CHEMISTRYOrdered By: SYSTEM SYSTEM on 08-02-2024 Albumin/Globulin [...] MD Transcribed by: MILLIE Technologist: KAREN Miller [facility] ED Clinical Summaryon 2024 ED Clinical Summary ED Clinical Summary [address] [address] ED Clinical Summary Person Information [facility]: [facility] Age: 39 Years : 1985 [...] 08/02/2024 19:06:33 ADDRESS: [address] [place] [id number] [facility] DOC NOTES: MEDICAL INFORMATION: Prescriptions Given: [...] When: Make sure to follow-up with your OBSTETRIC ASSISTANT at [facility]. Return to the emergency room if your pain gets worse or any new symptoms. In 3 days 08/05/2024 DIAGNOSIS: 1:Abdominal pain; 2:Pelvic mass Normal [facility] ED Note-Physicianon 08-02-19 ED Note-Physician ED Note-Physician [...] She did have hysterectomy and oophorectomy at [facility]. The patient states on May she had ultrasound of her pelvis which showed a cystic mass on the right pelvic area which possible was endometrioma, seroma or possible abscess. The patient states that she is scheduled for another surgery at [facility] for the mass. She is in [place] bnnmzy-lpn-twaob. The patient states for past 3 days [...] and Complexity of Problems Differential Diagnosis: [] [facility] Data External documents reviewed: [] My [...] mass. She has an appointment with her OBSTETRIC ASSISTANT in [facility]. The patient was given Zofran and Dilaudid for pain and her pain improved. Will discharge patient home follow-up with her OBSTETRIC ASSISTANT. She is instructed to return to the [...] Information Make sure to follow-up with your OBSTETRIC ASSISTANT at [facility]. Return to the emergency room if [...] 04/24/2023 Cu (more content not included)... Normal [facility] Comment on above: Result Comment: Elec tronically Signed By: Neha Hannah M.D.\.br\Date and Time Signed: 08/02/24 18:41 EST ED Patient Summaryon 025 ED Patient Summary ED Patient Summary [place] [id number] Patient Discharge Instructions Person Information Name: ANTONIA NOOYLA Age: 39 Years Arrival Date: 08/02/2024 14:41:13 Discharge Diagnosis: 1:Abdominal pain; 2:Pelvic mass Primary Care Physician: NONE, XXXX Provider Information Primary Provider: Neha Hannah M.D. Advanced Clinical Informatics Manager:None The exam and treatment you received in the Emergency Department were for an urgent problem and are not intended as complete care. It is important that you follow up with a doctor, nurse practitioner, or physician???s optometric assistant for ongoing care. If your symptoms [...] When: Make sure to follow-up with your OBSTETRIC ASSISTANT at [facility]. Return to the emergency room if [...] opioids can be used to help relieve zlbfytzh-kj-hqigoy pain and are often prescribed following a [...] be struggl (more content not included)... Normal [facility] Extra Blueon 08-02-2024 Tube Collected Plasma Yes Invalid Interpretation Code [facility] Comment on above: Performed By: #### 1 [id number] #### [facility] [address] [place] [address] HEMATOLOGYOrdered By: SYSTEM SYSTEM on 08-02-2024 Acanthocytes [...] Code Remisol Heme Hep Func PanelOrdered By: Nichewith SYSTEM on 08-02-2024 Albumin [Mass/Vol] 4.8 g/dL Normal 3.3-5.0 Remiso l Chem Comment on above: Performed By: #### 2 [id number] #### [facility] [address] [place] [address] Bilirubin [Mass/Vol] 0.5 mg/dL Normal 0.0-1.1 Carlyle lucinda Chem Comment on above: Performed By: #### 2 [id number] #### [facility] [address] [place] [address] Bilirubin.direct [Mass/Vol] 0.1 mg/dL Normal 0.0-0.4 Remisol Chem Comment on above: Performed By: #### 2 [id number] #### [facility] [address] [place] [address] Bilirubin.indirect [Mass or moles/Vol] 0.4 mg/dL Normal 0.1-0.9 Remisol Chem Comment on above: Performed By: #### 2 [id number] #### [facility] [address] [place] [address] Globulin (S) [Mass/Vol] 3.6 g/dL Normal 1.4-4.0 R emisol Chem Comment on above: Performed By: #### 2 [id number] #### [facility] [address] [place] [address] Protein [Mass/Vol] 8.4 g/dL High 6.0-7.8 Remiso l Chem Comment on above: Performed By: #### 2 [id number] #### [facility] [address] [place] [address] Hep Func Panelon 08-02-2024 Albumin/Globulin (S) [Mass conc ratio] 1.3 Normal 1.1-2.2 [facility] Comment on above: Performed By: #### 2 [id number] #### [facility] [address] [place] [address] ALP [Catalytic activity/Vol] 71 Int._Unit/L Normal 21-98 [facility] Comment on above: Performed By: #### 2 [id number] #### [facility] [address] [place] [address] ALT No additional P-5'-P [Catalytic activity/Vol] 9 Int._Unit/L Normal 6-46 [facility] Comment on above: Performed By: #### 2 [id number] #### [facility] [address] [place] [address] AST [Catalytic activity/Vol] 12 Int._Unit/L Normal 5-43 [facility] Comment on above: Performed By: #### 2 [id number] #### [facility] [address] [place] [address] Lipase LevelOrdered By: SYST EM SYSTEM on 08-02-2024 Lipase [Catalytic activity/Vol] 41 U/L Normal 13-58 Rem[facility] Chem Comment on above: Performed By: #### 2 [id number] #### [facility] [address] [place] [address] SEROLOGYOrdered By: Brooke Méndez on 08-02-2024 Beta HCG ( test) Ql Negative (08/02/24 4:00 PM) Normal [facility] Man Sero UA with Cult Rflxon 08-02-19 Bilirubin Ql (U) Negative Normal Negative [facility] Comment on above: Performed By: #### 4 [id number] #### [facility] [address] [place] [address] Clarity (U) Clear Normal Clear [facility] Comment on above: Performed By: #### 4 [id number] #### [facility] [address] [place] [address] Color (U) Colorless Abnormal Yellow [facility] Comment on above: Result Comment: Micr oscopic readings are only performed on those samples that meet specific criteria set forth by [facility]. Performed By: #### 4 [id number] #### [facility] [address] [place] [address] Glucose Ql (U) Negative Normal Negative [facility] Comment on above: Performed By: #### 4 [id number] #### [facility] [address] [place] [address] Hemoglobin Auto test strip (U) [Mass/Vol] Negative Normal Negative [facility] Comment on above: Performed By: #### 4 [id number] #### [facility] [address] [place] [address] Ketones Auto test strip Ql (U) Negative Normal Negative [facility] Comment on above: Performed By: #### 4 [id number] #### [facility] [address] [place] [address] Leukocyte esterase Auto test strip Ql (U) Negative Normal Negative [facility] Comment on above: Performed By: #### 4 [id number] #### [facility] [address] [place] [address] Nitrite Auto test strip Ql (U) Negative Normal Negative [facility] Comment on above: Performed By: #### 4 [id number] #### [facility] [address] [place] [address] pH (U) 7.5 [pH] Invalid Interpretation Code 5.0-9.0 [facility] Comment on above: Performed By: #### 4 [id number] #### [facility] [address] [place] [address] Protein Ql (U) Negative Normal Negative [facility] Comment on above: Performed By: #### 4 [id number] #### [facility] [address] [place] [address] Specific gravity (U) [Rel density] 1.007 Invalid Interpretation Code 1.005-1.030 [facility] Comment on above: Performed By: #### 4 [id number] #### [facility] [address] [place] [address] Urobilinogen (U) [Mass/Vol] Negative Normal Negative [facility] Comment on above: Performed By: #### 4 [id number] #### [facility] [address] [place] [address] Type of Urine collection method Clean Catch Normal [facility] Comment on above: Performed By: #### 4 [id number] #### [facility] [address] [place] [address] URINALYSISOrdered By: SYSTEM SYSTEM on 08-02-2024 Bilirubin Ql (U) Negative Normal Negativemg/ dL [facility] UA Auto SS Clarity (U) Clear (08/02/24 4:31 PM) Normal Clear [facility] UA Auto SS Color (U) Colorless 1 *ABN* (08/02/24 4:31 PM) Invalid Interpretation Code Yellow [facility] Auto SS Comment on above: Interpretive Data: M icroscopic readings are only performed on those samples that meet specific criteria set forth by [facility]. Glucose Ql (U) Negative Normal Negativemg/ [...] Urobilinogen (U) [Mass/Vol] Negative Normal Negativemg/ dL [facility] UA Auto SS URINALYSISOrdered By: Yusef Chung on 08-02-2024 UA Spec Desc Clean Catch (08/02/24 4:31 PM) Normal [facility] UA Auto SS eGFROrdered By: SYSTEM SYSTE M on 08-02-2024 eGFR 114 mL/min/1.73 m2 Normal >=59 [facility] Comment on above: Performed By: #### 1 [id number] #### [facility] [address] [place] [address] CBC AND AUTO DIFFon 07-21-19 ABSOLUTE BASOPHIL 0.1 X10E9/L Normal 0.0-0.2 [facility] Comment on above: Performed By: #### Leila BCA, CMP, 3040-3, 93713-4, 1987-10, #### [facility] ([id number]) [address] [place] [address] 08398 ABSOLUTE NEUTROPHIL 4.1 X10E9/L Normal 1.5-6.6 [facility] Comment on above: Performed By: #### Leila BCA, CMP, 3040-3, 20143-1, 1987-10, #### [facility] ([id number]) [address] [place] [address] 35514 Basophils/100 WBC (Bld) 0.9 % Normal [facility] Comment on above: Performed By: #### Leila BCA, CMP, 3040-3, 81400-0, 1987-10, #### [facility] ([id number]) [address] [place] [address] 74737 Eosinophils (Bld) [#/Vol] 0.1 10*3/uL Normal 0.0-0.4 [facility] Comment on above: Performed By: #### Leila BCA, CMP, 3040-3, 74051-9, 1987-10, #### [facility] ([id number]) [address] [place] [address] 00446 Eosinophils/100 WBC (Bld) 0.8 % Normal [facility] Comment on above: Performed By: #### C HEATH, CMP, 0-3, 82167-3, 1987-10, #### [facility] ([id number]) [address] [place] [address] 71784 Erythrocyte distribution width (RBC) [Ratio] 20.0 % High 11.5-15.0 [facility] Comment on above: Performed By: #### C HEATH, CMP, 0-3, , 1987-10, #### [facility] ([id number]) [address] [place] [address] 67897 Hematocrit (Bld) [Volume fraction] 34.2 % Low 35-47 [facility] Comment on above: Performed By: #### Leila JOE, CMP, 3039-3, , 1987-10, #### [facility] ([id number]) [address] [place] [address] 08454 Hemoglobin (Bld) [Mass/Vol] 10.7 g/dL Low 11.7-15.5 [facility] Comment on above: Performed By: #### C HEATH, CMP, 0-3, , 1987-10, #### [facility] ([id number]) [address] [place] [address] 83811 Lymphocytes (Bld) [#/Vol] 2.3 10*3/uL Normal 1.0-3.5 [facility] Comment on above: Performed By: #### C BCA, CMP, 0-3, , 1987-10, #### [facility] ([id number]) [address] [place] [address] 53028 Lymphocytes/100 WBC (Bld) 33.8 % Normal [facility] Comment on above: Performed By: #### C BCA, CMP, 0-3, , 1987-10, #### [facility] ([id number]) [address] [place] [address] 18272 MCH (RBC) [Entitic mass] 22.6 pg Low 27-34 [facility] Comment on above: Performed By: #### C HEATH, STEVE, 3039-3, , 1987-10, #### [facility] ([id number]) [address] [place] [address] 82745 MCHC (RBC) [Mass/Vol] 31.4 g/dL Low 32-36 [facility] Comment on above: Performed By: #### C STEVE JOE, 3039-08, , 1987-10, #### [facility] ([id number]) [address] [place] [address] 50727 MCV (RBC) [Entitic vol] 72 fL Low 80-100 [facility] Comment on above: Performed By: #### C STEVE JOE, 3039-08, , 1987-10, #### [facility] ([id number]) [address] [place] [address] 79050 Monocytes (Bld) [#/Vol] 0.4 10*3/uL Normal 0-0.9 [facility] Comment on above: Performed By: #### Leila JOE, CMP, 3039-, , 1987-10, #### [facility] ([id number]) [address] [place] [address] 55862 Monocytes/100 WBC (Bld) 5.5 % Normal [facility] Comment on above: Performed By: #### Leila JOE, CMP, 0-3, , 1987-10, #### [facility] ([id number]) [address] [place] [address] 20203 Neutrophils/100 WBC (Bld) 59.0 % Normal [facility] Comment on above: Performed By: #### C BCA, CMP, 3040-3, , 1987-10, #### [facility] ([id number]) [address] [place] [address] 79497 Platelet mean volume (Bld) [Entitic vol] 7.3 fL Normal 7-12 [facility] Comment on above: Performed By: #### C BCA, CMP, 0-3, , 1987-10, #### [facility] ([id number]) [address] [place] [address] 85158 Platelets (Bld) [#/Vol] 517 10*3/uL High 150-450 [facility] Comment on above: Performed By: #### Leila JOE, CMP, 3039-3, , 1987-10, #### [facility] ([id number]) [address] [place] [address] 80726 RBC COUNT 4.76 X10E12/L Normal 3.80-5.20 [facility] Comment on above: Performed By: #### C BCA, CMP, 0-3, , 1987-10, #### [facility] ([id number]) [address] [place] [address] 03626 WBC (Bld) [#/Vol] 6.9 10*3/uL Normal 4.0-11.0 [facility] Comment on above: Performed By: #### C BCA, CMP, 0-3, , 1987-10, #### [facility] ([id number]) [address] [place] [address] 44146 COMPREHENSIVE METABOLIC PANE Van 07-21-2024 Albumin [Mass/Vol] 4.3 g/dL Normal 3.2-5.3 [facility] Comment on above: Performed By: #### C BCA, CMP, 3040-3, 14697-8, 1987-10, #### [facility] ([id number]) [address] [place] [address] 10102 ALP [Catalytic activity/Vol] 75 U/L Normal 39-130 [facility] Comment on above: Performed By: #### C BCA, CMP, 3040-3, 85055-4, 1987-10, #### [facility] ([id number]) [address] [place] [address] 90668 ALT [Catalytic activity/Vol] 25 U/L Normal 0-31 [facility] Comment on above: Performed By: #### C BCA, CMP, 3040-3, 12974-2, 1987-10, #### [facility] ([id number]) [address] [place] [address] 36197 Anion gap [Moles/Vol] 8 mmol/L Normal 5-15 [facility] Comment on above: Performed By: #### C BCA, CMP, 3040-3, 79943-8, 1987-10, #### [facility] ([id number]) [address] [place] [address] 41108 AST [Catalytic activity/Vol] 26 U/L Normal 0-41 [facility] Comment on above: Performed By: #### C BCA, CMP, 3040-3, 99805-9, 1987-10, #### [facility] ([id number]) [address] [place] [address] 92334 Bilirubin [Mass/Vol] 0.6 mg/dL Normal 0.3-1.2 [facility] Comment on above: Performed By: #### C BCA, CMP, 3040-3, 86933-7, 1987-10, #### [facility] ([id number]) [address] [place] [address] 77683 Calcium [Mass/Vol] 9.5 mg/dL Normal 8.5-10.5 [facility] Comment on above: Performed By: #### C BCA, CMP, 3040-3, 14536-2, 1987-10, #### [facility] ([id number]) [address] [place] [address] 47502 Chloride [Moles/Vol] 107 mmol/L Normal 98-109 [facility] Comment on above: Performed By: #### C BCA, CMP, 3040-3, 31496-0, 1987-10, #### [facility] ([id number]) [address] [place] [address] 46245 CO2 [Moles/Vol] 21 mmol/L Low 22-32 [facility] Comment on above: Performed By: #### C BCA, CMP, 3040-3, 44789-3, 1987-10, #### [facility] ([id number]) [address] [place] [address] 57226 Creatinine [Mass/Vol] 0.83 mg/dL Normal 0.40-1.00 [facility] Comment on above: Result Comment: METH OD TRACEABLE TO IDMS STANDARD Performed By: #### C BCA, CMP, 3040-3, 75728-4, 1987-10, #### [facility] ([id number]) [address] [place] [address] 09317 eGFR (CKD-EPI) NON-RACE DEPENDENT >90 Normal >59 [facility] Comment on above: Result Comment: Reported eGFR is based on the CKD-EPI 2020 equation that does not use a race coefficient. Performed By: #### C BCA, CMP, 3040-3, 66863-4, 1987-10, #### [facility] ([id number]) [address] [place] [address] 63369 Glucose [Mass/Vol] 118 mg/dL High 65-99 [facility] Comment on above: Performed By: #### C HEATH, CMP, 3040-3, 28660-5, 1987-10, #### [facility] ([id number]) [address] [place] [address] 83748 Potassium [Moles/Vol] 4.0 mmol/L Normal 3.5-5.0 [facility] Comment on above: Performed By: #### C HEATH, [facility], 3040-3, 02366-2, 1987-10, #### [facility] ([id number]) [address] [place] [address] 65471 Protein [Mass/Vol] 8.2 g/dL High 6.0-8.0 [facility] Comment on above: Performed By: #### C HEATH, CMP, 3040-3, 72770-7, 1987-10, #### [facility] ([id number]) [address] [place] [address] 98727 Sodium [Moles/Vol] 136 mmol/L Normal 134-146 [facility] Comment on above: Performed By: #### C HEATH, CMP, 3040-3, 19558-7, 1987-10, #### [facility] ([id number]) [address] [place] [address] 72272 Urea nitrogen [Mass/Vol] 8 mg/dL Normal 5-23 [facility] Comment on above: Performed By: #### C HEATH, CMP, 3040-3, 85078-0, 1987-10, #### [facility] ([id number]) [address] [place] [address] 80984 LIPASEon 07-21-2024 Lipase [Catalytic activity/Vol] 31 U/L Normal 17-40 [facility] Comment on above: Performed By: #### C BCA, CMP, 3040-3, 22725-9, 1987-10, #### [facility] ([id number]) [address] [place] [address] 50700 URN MACROSCOPIC NURon 2024 BILIRUBIN AUDREY Negative Normal NEG [facility] Comment on above: Performed By: #### C BCA, CMP, 3040-3, 97723-5, 1987-10, #### [facility] ([id number]) [address] [place] [address] 30730 BLOOD/HGB AUDREY Negative Normal NEG [facility] Comment on above: Performed By: #### C BCA, CMP, 3040-3, 30233-8, 1987-10, #### [facility] ([id number]) [address] [place] [address] 54895 GLUCOSE AUDREY Negative Normal [facility] Comment on above: Performed By: #### C BCA, CMP, 3040-3, 27971-5, 1987-10, #### [facility] ([id number]) [address] [place] [address] [place] [address] KETONES AUDREY Negative Normal NEG [facility] Comment on above: Performed By: #### C BCA, CMP, 3040-3, 20035-2, 1987-10, #### [facility] ([id number]) [address] [place] [address] [place] [address] LEUKOCYTE ESTERASE AUDREY Negative Normal NEG [facility] Comment on above: Performed By: #### C BCA, CMP, 3040-3, 15241-8, 1987-10, #### [facility] ([id number]) [address] [place] [address] [place] [address] NITRITE AUDREY Negative Normal NEG [facility] Comment on above: Performed By: #### C BCA, CMP, 3040-3, 07838-5, 1987-10, #### [facility] ([id number]) [address] [place] [address] 48755 PH AUDREY 6.5 Normal 5.0-8.5 [facility] Comment on above: Performed By: #### C BCA, CMP, 3040-3, 88034-8, 1987-10, #### [facility] ([id number]) [address] [place] [address] 31121 PROTEIN AUDREY Negative Normal NEG [facility] Comment on above: Performed By: #### C BCA, CMP, 3040-3, , 1987-10, #### [facility] ([id number]) [address] [place] [address] 61053 SPECIFIC GRAVITY AUDREY <=1.005 Normal 1.003-1.035 [facility] Comment on above: Performed By: #### C BCA, CMP, 3040-3, 96374-0, 1987-10, #### [facility] ([id number]) [address] [place] [address] 29910 UROBILINOGEN AUDREY 0.2 eu/dL Normal <1.1 [facility] Comment on above: Performed By: #### C BCA, CMP, 3040-3, 40441-4, 1987-10, #### [facility] ([id number]) [address] [place] [address] 21065 Coding Summaryon 07-13-2024 Coding Summary HTMLBase 64 TpfmkzivTVo7sMp+PGhlYW Q+NB4QTXByA27gkJYkyS1w W1OIIDbHGywfTDCPUUvKMl SnqiLeDP4nrOEtHHBg IC8+ZJ9jBLVwPahnnMMyq0 B9vJP1A04hzq4vUWujjNB4 NFQfTvIbbjedn1uleAg4XZ cuNmluOyBt XNWnlV28JIV9zZ59Tc13yC BuxGIcb6uadLc0UdEaZRKr QPM2zApaNFiuh5BwYBNnI6 7faDGuo3Z5 EOHrdFgcdMXqSeCzmXG8hQ 6tPTbibrnuc7qhscevWna4 hh21aPGcg8H7dUD6B5Eted G5QGJizTBb YzyrbRBSwW6ikycqt0upoz jpNhSuKTAnAIo7TGd0YTXs aKbaSeNiUV85GOQ7HOAhju IhK2OrXPUm aQhcUlJ1m3J0Wx2OH8OGWl ddZ6JRMCZKJCatdNF+PC90 bo41D3BcAmoaPdf4KXSsMQ D1gQK1hV7x PZObGPksh2Y4oXG2S9Fbxd Deqr6pw9boYOTrRQcxC48q pNWdw6F9ZYUxjDS5ZIYggI iyZgGcnY61 Oyc+JGQwqFhun5HgPjzki0 vyz7rkmGf9FxhmYIFqfzFz eTvgORP1z8GtHu1aYHZmjL C1sWR9fJ0e NqXzXbP9WOelM376YlIeyK ShQyslM08cP2QwdXH+PHRy Dtc9CVHcuEqoOP5mX6EvXO RpbmctbGVm cRtkXH3kRSPhxgdlYKYfbX 9yHSKuK0a3QsSpFmM4DNfr W5CvBUFprseuSc52vC7iBb TeFiZ8AXor T5PbzuE6ONAfnEZgVXrsEA I4X98sw9D3RPAkLXHgVQG4 oUM1xK9fvMkllnzicFHxuF sgdmVydGlj EWaeTTlmW739JFAfrMpjGm NvZGluZyBEYXRlOiAgMDEv MzEvMjAyNTwvdGQ+PHRkIH W1sFpsKFDn uCLoTEsxOg2emRpioFedUZ 1gBLKpiagyPFFbcH2lBFZq jOZbkNefXN2mBKWpvrpsc2 53NpZoFZQ4 HDXrkTEkY9HwjT2eJeCbLB NwNXSwY7YnlTNxOBeiH305 OWxjJsU1ATAgkoWtU5TxXB FsaWduOiB0 c2O8Nt2Ni6YgblyrP9GfqG DsBuDlXkltQNe6U4GdMzjm dHI+LK44DFOhGK36NRy7FI P5lGbkIClo VZUcN9TvwG3sFuBpSOAeQL RkOyc+PHRhYmxlIHdpZHRo EMwbQCEzTaQssAwxOC5oRz 9yZGVyLWNv cJgasFUtUgZhn1wrSYQvHF ugMA4ryQpfO7EpcEZ2XSPd f8f3Ms42L69pQ4IjbZI+PG EltDO4qXH3 jY3dVkGgYpR3RGyiV279Br WiuQEmSmkhu0czh6hgiRt2 WgE8OYKfqkWlvDiuKUK0t8 WxLx31S80w IHdpZHRoPSIxNSUiIHZhbG vwan2nsQ2uZa8+PGNvbCB3 mSM5hY1qZiZuXuG3THieA2 49InRvcCIv Etsgr7qmg3vubPy1PzHjRM AsytJgmRkeEDI0f7PlFk12 I1BwrLudn2VtMoi9qv33yW Eqz0W2qMZ2 M5PiFGQeyzludJRfsUdbHQ 1nPDEudrytMKEtxL7gWLOt W1h2VnHkKvY4OYqcQ7Qjab X0MKLziZLj AAHwcTEXoV7xyntkd9crpt gbIrBmGHCsSAs5UCy8RTEf pOczPgAgSQQ3CvX9XEZ8eA OktK0kzRxk imgpjZ9oMco+JRO8iTNgsS RTAT9tIodxnMX+PHRkIHN0 cNrqJZdzCBQvoT7fGABbD5 p7RvQzXcP0 LJqyQ7HahkI4EGVnxAUfCM AsaICHiB7obmizt8xgwari WfDfFVDaZOr8MJq0UBZqwN duOiBsZWZ0 WlR2QIM2bCZivH7phHwtqp rqbM3tHuw+QmlydGggRGF0 ENw7C5MvSbs2NKPrrNvcLK 0ncGFkZGlu Lk6bvBjazSxuRK6cRZBoxm trc686LiWkg4zxBVPrcOYj CDmmROJ2G05fw6Z6JEBlIO DqOUZ0sUV9 wP4uvXucmolihGPmjWigps IauPcoGFluVWtnK000LLNy hZknEgRkNQo2C8AhJio2GM UtzVhhOB2i eRPzUYfxXi7neMbdiIueIO 9fMUMpqyyab823VtJhb3vh KJSsjBKwEPjhCCD6X67ov6 R2SDYgDJHh GLY5kPJ4gV0vaFwdzixvkH VmdDsgdmVydGljYWwtYWxp E970VITaeKgqPkXdcBx8W5 BbDbe7HGZt eIhlDE9lkTGcRCekAt1kbK tjrUocHX9qUOCuhserq654 QaDor9kxIEQuaUFoUZkyPJ V9W21ty9A5 IAFrDWFaGYC1vVU9rS2stL lnbjogbGVmdDsgdmVydGlj CObeMFkvB209TDGmjQntOn BhdGllbnQg BYapKPs0A1QxBbcgiDX+PC 82PNToWY83eNYpcRZwf6km kIl3OzMgHMWjDLC4bYgdMZ nyp7PrWATf V67qvSPnj5V4OPHcgDryrH VbHbQnwBB1uI4bNXopuklq p7gjtwgsDgohm8gbdx54cU 90L07jKFtb ZHRoPSIzMCUiIHZhbGlnbj 0roA8wDm6+LQAtnAV8yZM5 uR4uVHNxVsF2DHkqA360Ad RvcCIvPjxj o0yoc0yoxUw1ImR6LAJwsh EulImaUIT5t7WtBy38R03i IHdpZHRoPSIyMCUiIHZhbG zrfl0anF2g Ii8+QFEweWT1bPP8kN8kZl BvErV0YMsqX310NhYzgOCw MsnkB57dS5OunKK+PHRyPj k8ISYpfHmt CK1ncCZzSOltOa9eOFV8Ja BrLjEfMPtrY5SfBDZvqqtd aesbeLF5EVAdKPYvxF80Dy 9udDogMTBw cTTHsW9bltluu7czfrjlHj PbCXJcXFc0ONo5QTKarUut PeFaPBL4ZnG8EPA7tQXrbQ 1hbGlnbjog qF0lW0QxHMCeipkaEu58uC 3iGgUpHkN1CHaaXeh+SE9X QVJELCBTVEFDSUUgTEVFPC 73BI83nQWz g0Z2fLE1R1UnDORriljduf rmcYK6XOOuYHXvvQ10uMFe NToxDx6ql0F0i223REHjZB NmvY31Mf6c jZchUSVygAGMsS0zgtcki7 zxrpvpZkGlOFStGVs7AYt5 XKEseSndPsHvECK4VwK8FC V3hOZtiF4k tWtwgwqdnK6vSnw+MDcvMz JtFNs7AfmlqGC+PHRkIHN0 rJrlTOvgZSMbiF9yRPTiP9 d7SbKcItD3 GVzaD4VcFUDawjbfKa11yV 4uDnDsKhN7UPmcI0MpquY3 SQVhlLVmDDhnOGK0A21zb5 B6OUOgAPUe PCO3rKN1tG0vyXafxxehzZ VmdDsgdmVydGljYWwtYWxp N808BBTupIbpPsO9AAehQA KyRU49NU57 qIGgp2E1dEY7S1ZlOCEpim neaboonZF1XMJgDQPzqW51 zBGfKQfiDm2ig4I3y502KJ KeXAIomO11 St1vdLmbCHDuqWVXhP0yuh zxj5kfupgmYjXyIITuCQb0 NFo6SWJtiCtpMgQdQAC6Gw B2OTX9sMXm yG3ihOflvgztfJ1hMyi+Rk BHTPtVTN26VP08eOEfj0E9 jKK2W7LpDPLmqnyntwqxoI I2AVHvSSLe yA29rBYbBYevSu4fa3P4a0 25JIXgEGEfgV74Gl1epZfs RUIjnWDWdU1glomom8bqwp ogIzAwMDAw HEe5QGg5HTFcsVadDjTvTS X2GnS3ORJ8zEOcyK7fnLjh jgpsgW3sTeb+WU9yiwcuiu R7PF32MK47 F1ZqNxxnfPKeoIP+PHRhYm xlIHdpZHRoPScxMDAlJyBz fEpySB8xRa1tMBObWFEueP xhcHNlOiBj c0cjUFIhKVnpXW6itTlqJ1 DqyOA2TCQij5v1Yb31S10x I4OixCL+PMAyzKH6yYU7sM 6aTjQqJaW9 HMziS671VtGuxNOnPznhz7 vff1vytFo9RdXtDHQgpgXt lYskZZV3n2KfIc80R37tHT dpZHRoPSIy SRYlSAYvgCtnvf8roJ3xVs 8+XTMczQF2uDC9iW6vXcTz QuE8CZgnB651SzBrvFZnQa azF47pN5Tu dXA+MBNpGao1JKAmwNmsHM 3vzAWzVVpwTx6cHMC0EtNc LcSdMKnlH4BnHJPecpxlvi wqlUV3JVSe CVSsbP82Of2vmXeoCv0hEA YdGBG6FYKkbAAcG4PeoV3y OeMzLDDiOSVpX8PnxNOeGU sfG501XKkl UnK6JUTmjaVtZ9PhZQXdkK fqJhI9u9F1Ev7JiMtwrPRf IX6zCgLoJIf3K6NfRto3IW LnwQwmBB0o pNPqMCipDn4otCepzQtzQY 8vPURqvdaor210PbOex6sr SYCoaKXcOKmsAFN1B58vn7 D6HBUaCLRv QRQ4lEA5gR9bgPohtcydlS VmdDsgdmVydGljYWwtYWxp I585VWUjtYylRdBKAqt4X8 EsKwv3IQLm oYuuSA3wiVSdZRcvLt2avN izyFmrSR7iXLCxndrmx217 SaGre4sgSGUkaMSoZOiaPX B5K55rs6D6 CGWoYBXzGHU0wMS9qA3rkL lnbjogbGVmdDsgdmVydGlj CUdkXVxuI001ZAQbhXyhOz 3MEfd7J7Vv Zei1UYSkzWhoJX9vpIRwKK vwFo7awMgxnItlBG8iACWu mwwht625JnStc5huYZEtrM QgVGltZXM7 E71zu1L0LYRcQIXtOKX7qL P4yS1qhElaesaqzASufEug reJjfTabCNgvCJpuU948WN RvcDsnPlBh eWVyOjwvdGQ+IE67pf16Y8 HeHqyiFqk0IGSeGYU3aRH4 aZ7bCWUmDJirz5L1rCD7M1 TnboOkbm6i b2x (more content not included)... [facility] Coding Summaryon 07-12-2024 Coding Summary HTMLBase 64 GakplgpuCEv4bWh+PGhlYW Q+AK7KMUWlU42blYKhpE7o O6QCDUsGPjnbIAMUXHqACw UjvsOnNH9lcHFmBRJs IC8+AE1pIWVrQjhfmZMoq2 B0tCC3U28xft9fUHdalRX1 AMDtZqLxynpam5puiOw7FK cuNmluOyBt JBJhpP24ALW9aZ83Hc04kB LdyEMof4ncvRa5FyHhJCOv QTI4uPvkPWsyb1QhYEVkC8 1qsFLcp7Z8 VDRmaSghkXBjYrHcePV6jK 4fQZvdusnly0dqmjrzOya7 wc08dWUkw7D7oIU9N2Ufnw G0DSWdmLMw FrgvwHTOcC4iazswg5zijp boHrUuNDVdTZf4OFr4ACTs xNxrWkTjBG01KEJ9GAJitc DkF5JbEHMz sNhlJuA5o0Q4Fl1DZ5PVSs jpE3IYDFCKQJkdaFI+PC90 uz15J3CrXdzvSoi7XXNrSA T8jKX4bS1t ONNyYBplt4R1yKA4L9Bxgy Qqih9jo0qjHQTfACcvZ45b cCBzc5Z7INQegCD3PVCblQ doZxXibF79 Oyc+DACjuZhbg6BwJsrpp9 ocl1cneTi6NxeoIVXoacQc wDndNIT6m9IbHd1kBWDnaG D4fLN6rH8s KbWbQfC6WDjxJ202ZgJrkM QhNifrU98xY6GnkTG+PHRy Oqm3NBHlzVtcMM2wU6LpIJ RpbmctbGVm aQcuUE3tMQZoxlafSOOpnW 0bGMHsS7u9VlDdJbH7GIoa R2EvPOApifmtGm62sM8kOb DhRzU6MVop L9RotsM9OICxxXXpLAgjIA V2M42fd7R6FPIxDMUpUQB3 iKB0dW3eqUbwuxntvSEuuZ sgdmVydGlj TFuhHTuaN941UFXyvCesKx NvZGluZyBEYXRlOiAgMDEv MzAvMjAyNTwvdGQ+PHRkIH Y4fXgwTJYl yJKvGHtmPn7fwMjbqPuvGK 8dUOIqzdbaXCWasK5iFSWl cVVymFyfBW2uLGWwynzpn4 53UfJtQHC8 UAWksUAiS2ZupC0vDyUpDJ RpOMBbC4CwgFGtDGxeU371 CAqhOnC5JPQiauGpQ4ZdOB FsaWduOiB0 c5J6Zs8Ju8VvcttuX2QnvP OgUqDaGnekZHs8P1BuGxkn dHI+AG48BGIlTJ06LAn5FP F6xEvgSNbg ENQdR4RapM7rNiPtMYTcJS RkOyc+PHRhYmxlIHdpZHRo QPnnGQCvUkWumEugOE5lYq 9yZGVyLWNv bQnwcVXxVfWio4byZFZnLB jtPY7itJpgU5XiyVJ3OAKk n0d0Ux64K92cW5YxvAE+PG MfqDC1rBV7 lR0kZdHkUfY4BLoiU336En LfyTHbOhwlr4pyz8tdnIu7 JkR3LHXodyFknHqjLXU1q1 PaEm74T17q IHdpZHRoPSIxNSUiIHZhbG hmre6ilJ1jFc2+PGNvbCB3 iWG6oA7wDuEvZkE3QEbzG6 49InRvcCIv Eppxx0wek1tpfQd2BjIoDC LasdBwdIedEBQ2j5FlJc12 G6UthIcno9KuXlc3tz22nY Ftm0I8gIB1 Q2PkDHPcpyfwrNVacOaiRW 8mMUVwpaglXDMjbJ4hMRLh K9z7ApIpYuZ7IBxrV1Mfkd O4NCGzuGPs XTCuzBNKlL5bvufmm0zeqb tyFeEsSMObFEd5RMr5XMOz uEkuRuKuUIP2YvA2WNC8dO OktP8ulDmo kijfaW5zRwy+UYS5bLFxlY ARFB6gWlwbkFM+PHRkIHN0 mBtxOHudLADqqA9kLYNtA4 b6MvCyQmJ3 UWpaS6OqnoG9WBYgdGYzBM UueLORfT7tmbhev2lisgif BaFvTIHdGEo1ALc1DHLsyL duOiBsZWZ0 DhG9DBQ5kGXbhC4wjIzbam rfuB4uUht+QmlydGggRGF0 OLl6V4LaQhg1WWFamRiuWJ 0ncGFkZGlu Ro0bhUnrrZyrJW9jGHApvx zqt974WyBli7niQPWnpJXg WUryNTL0C42mk4D1MQEfJV JsRYD7sMQ1 qQ6fcJbojyhpfUZwrQovtz TqiFbpJOiiJShjE168MCXe nKhwBqOsJBc3C4UvCto2ST DndPgoAF3o qAMqTBapZf5ldHozsPpjWS 9oKCBbhbdhu369SnGum3rd ULWtxUEzRNyzHSE0P39ur7 K1DRKpLEAr OCZ4fBC7qU7pfLqrulfetU VmdDsgdmVydGljYWwtYWxp N651NUBwoRrsPfPegTm8O6 IbTfu6BAUh xVhjCE9iwQHmLYruIs1mnT aptHmxTC4jMYDwiqnin982 UfBsg2dnDQCprIKvFZujLQ E7U77xk5Z6 UTJdZIJmNJY6aTT4mY3rtK lnbjogbGVmdDsgdmVydGlj NHltZQmvF214MDVtaLqkGg BhdGllbnQg GRyiMBg4C5GsUiqepYK+PC 86OEVxWT10pTUcqUNyi8tg uTd7AfEiGZTyAYB2fZmyXG uue2GmISOw P63tsHYmx9W6KSYpgGmwuJ DrGoQahTN9kK8aMWbyputa w4sswtrwYhobl1lyyj20wS 65G58qWHyo ZHRoPSIzMCUiIHZhbGlnbj 2nnJ5pEj5+BXJvvRY5aHP9 eV1hIRTkXvE9CLlkS640Iy RvcCIvPjxj f6dtb5zsySr9VtI1TDOaaf LmeLrnKKS8x2MxPa52H31d IHdpZHRoPSIyMCUiIHZhbG oucd6nsX1o Ii8+GHAeeKG0mGV7xD0oZl DrHbL9INndQ726IpHuuHGa MsbaS45rT2WykUM+PHRyPj i2LPAubPxi HY4ilKDyPCefCd7bJFE1Jn RtOmXeGRqvJ2CwRSIkeicm cacswLG0PFJsOVTwwM91Nl 9udDogMTBw vIAOdR9ibzykb5rinswnAy PpJZVpLYk0LGh8YRQyrOel EkHzTXR0EdF6OGO7oGWwpK 1hbGlnbjog sD8uV4AaMJRwfrysKa14yW 1yWrIwYoQ6QGqnJed+SE9X QVJELCBTVEFDSUUgTEVFPC 36CV39nWKq v4D5uYX4Q8AfTKTndrxxvm pwmJY9JMFkVLKwyT25vREz UIepBm4uv2K0c039FBCfPI VnvX38Sa2l bIfrXQGnpKSFdT8bweuxs2 trpcrlUyPtXZXhQWv2XEj0 XAVluMmiXbPaWSP2DyU1LW T3bSFrtQ4y pUlmroflxS6yEqm+MDcvMz UhWPu7ZqjbgXY+PHRkIHN0 wNzbUGakNDLbiL8mBKMjF3 m9EfYgOzY8 SNytV6WcEQWmqzkgAq28rM 3bKlUoUoI5LFcfC8WlveI7 CVVcgFScMLlfZJA3C16tw7 X1TKJhRJGr WBR2xIS2cQ6tuCwtfgsqpI VmdDsgdmVydGljYWwtYWxp S395HTRnmMczSrI7KXfwBV FhCP06XS21 hVXap5D8pFI9P2BmRAJwic ypisaajOR3RKZsBNJyzK80 gJInEQgzAv6xq4W4o616MF YcDWPraJ85 Tc7isDzbTQGybKSRxK9xvd wao4eyvyuzQsSsEXOoRTl5 YZb2HSKrfWnrWeYrCCC3Qr N4FOL7eDDg gB4elEndnfbvfM3cOji+Rk JRQToCZA28XL19eBCjw9L8 uAQ4Y5BwMWWqukiorqwdsW Y1TGIpIWKg eI59jGPdXEgvAe4rl4G6z2 01LBWmMVThuZ96Hh3xyLcw JNQxlLWDaU7bmnwke1oaua ogIzAwMDAw URf2RJf0XNYrsBajGyElPS P8LqT3TWR8rNIrhU0goOpr xucyiF0fObt+IX1xtqqnjd X7OR00CK17 A9CjDxtkzUBpsBZ+PHRhYm xlIHdpZHRoPScxMDAlJyBz bUnoDK8lSi3vYSLmEPCbwD xhcHNlOiBj l0ztVLMaYYkjEN9nxFmgA0 CnxJX7GVJub4o7Rp15Y80v Z8BcxAS+MJCobXU1gSS9dB 1vWwYpTfE9 IPgzF789RdFmjNLiDkmup6 xet5yrcSa8YgFvMJAxmfEk gYosYNW9m1DzBr41D36yNL dpZHRoPSIy ENPeKREewFdxhs1tmU1zKq 8+FPLeiTS1nNF6oF0zHhLz JwL6UQpfB228HjWtjLEhVe heD54nT4Sm dXA+WAByEnx4ALQwdSfwEK 7vyQBdAPjrKe6lHLC6LfAx WoDdUOuuP0YkEMYfsfeijx mprUM1YABj ATAuvS95Ao4euJldPp8kWI UnJFY9PLKfgPKiP1XidM4k LbRsSCJhPMNzA6QhgTKkQG kxW705LKwo ApZ5ZMEiikMhU0LfEJFloW udQgW7y8K7Fp3LmKmkvKCq QD7jZkVeGHk6R6YpRdp0KM EutGezRI3e sEInNSdcCw1anBcneAqqZL 8iNBFgkyvul205GcRpg9ag WYJtkTGcDWafZTM3A33om8 P6GYCvPJWd BGS3rNL8yR1doZtrlpesvE VmdDsgdmVydGljYWwtYWxp O140GXAoiCcfRhECFnk0Z0 MiYmu2VHGz fAkrKN3yrDLsBIhtMu9yvU mxlSkbJS4rLCUrisutx561 MxXkq2mfZOBtqCBfEVgaEA N2H29ph3P2 XCUnREAvVQS3eQM5mI8ymI lnbjogbGVmdDsgdmVydGlj BPgkCTmyU066QGXkvUxwJx 5GJky5O4Lz Rpz2ROOzpEvjXI0efNPjDO mhWj2amLurgEldAQ2qWYBy lkiep199GcLut3llJMGgvX QgVGltZXM7 B59ft1W9HQSdHYMbFZX8aA G6sY0krMkqwmewaIIqoPsd gtMytWcqYVlhOEmhP107DB RvcDsnPlBh eWVyOjwvdGQ+FR21gx39W2 YeAnqsKtb9XNQmUTE8gPI4 eM3lBBLsGKgkj9G3lON3B4 PipaNhjy6f b2x (more content not included)... Normal [facility] ED Clinical Summaryon [address] [facility] - Emergency Department [address] [place] [id number] ED Clinical Summary PERSON INFORMATION Name: ANTONIA NOYOLA Age: 39 Years Sex: FEMALE : 1985 MRN: Acct#: Visit Reason: Abdominal pain; ABD PAIN Arrival: 07/10/2024 21:55:42 Discharge: 07/11/2024 00:52:00 LOS: 000 02:57 Check In: 07/10/2024 21:55:42 Checkout:07/11/2024 00:52:00 Address: [address] [place] [address] [place] [address] PCP: Provider, None PROVIDER INFORMATION Provider Role Assigned Unassigned Eran Hill MD ED Provider 07/10/2024 22:48:22 07/10/2024 23:35:16 Letty RN, Celestina Leos ED Nurse 07/10/2024 23:21:32 Eran Hill MD [...] Hill. Contact your primary care provider or ELECT[employer]ICIAN SUPERVISOR [employer] for further evaluation and treatment of your condition. Return to ER for any worsening symptoms especially any symptom that concerns you. DIAGNOSIS: Abdominal pain, chronic, right lower quadrant; Other chronic pain Patient Understands: Yes - Patient/family/caregiv er verbalizes understanding of instructions given Comment: [facility] ED Note - Physicianon 2024 ED Note [...] that she had surgery performed by her OBSTETRIC ASSISTANT at [facility], several months ago. Patient reported that [...] She stated that she had contacted her OBSTETRIC ASSISTANT and was told to come to the [...] SpO2 100 % (more content not included)... Normal [facility] ED Note-Nursingon 07-11-2024 ED Note-Nursing This nurse entered room to discharge pt- Pt had self removed IV and left without discharge instructions. Normal [facility] ED Patient Summaryon [address] [facility] - Emergency Department [address] [place] [address] PATIENT DISCHARGE INSTRUCTIONS Patient Information Name: ANTONIA NOYOLA Age: 39 Years Date of : 1985 Reason For Visit: Abdominal pain; ABD PAIN Arrival Time: 07/10/2024 21:55:42 Primary Care Physician: Provider, None Attending Physician: Eran Hill MD Comment: Visit Diagnosis: Diagnoses This Visit Abdominal pain (89859246) Abdominal pain, chronic, right lower quadrant (R10.31) Other chronic pain (G89.29) The Pharmacy at [facility] is open Tuesday through Tuesday from 9A [...] alcohol and/or drug addiction problems; contact the [facility] 03/01 Crisis Hotline -Text 4OWFW oy [phone]. If you received any narcotics, sedation, or [...] Hill. Contact your primary care provider or E[employer]IC[employer] SUPER[employer]OR [employer] for further evaluation and treatment of your condition. Return to ER for any worsening symptoms especially any symptom that concerns you. Medication Information: The exam and treatment you received today in the [facility] Emergency Department were for an urgent problem and are not intended as complete care. It is important for you to follow up with a doctor, nurse practitioner, or physician?s optometric assistant for ongoing care. If your symptoms [...] so we can reach you if necessary. [facility] Emergency Department has provided you with a complete list of medications post discharge. Please inform your waste/materials exchange specialist/provider of your visit and for further instruction [...] 84 kg Weig (more content not included)... [facility] Progress Note - Nurseon 06-14 Progress Note - Nurse Physician to [facility] to consult with patient now [Electronically Signed on: 07/11/2024 00:26 EST] Celestina Saenz RN [Verified on: 07/11/2024 00:26 EST] Celestina Saenz RN [facility] .Auto Diff 1on 07-10-2024 Auto Candler % 6 % Normal 06-24 [facility] Comment on above: Performed By: #### 1 [id number], 6008752515, 5163848495, 8053304, 8267800, 07586057 ####[facility] (DEFAULT)[address] [place] [address] 45728 Baso Abs# 0.0 x10 Normal 0.0-0.2 [facility] Comment on above: Performed By: #### 1 [id number], 3566779538, 0521085142, 4329737, 8525821, 64721357 ####[facility] (DEFAULT)[address] [place] [address] 86537 Basophils/100 WBC (Bld) 0.4 % Normal 0.2-2.0 [facility] Comment on above: Performed By: #### 1 [id number], 0564503376, 1662496618, 5741815, 8986119, 02270501 ####[facility] (DEFAULT)[address] [place] [address] 71300 Eos Abs# 0.0 x10 Normal 0.0-0.4 [facility] Comment on above: Performed By: #### 1 791076811, 1660101821, 5055079688, 0843478, 9205031, 58531855 ####[facility] (DEFAULT)[address] [place] [address] 61752 Eosinophils/100 WBC (Bld) 0.3 % Low 0.9-4.0 [facility] Comment on above: Performed By: #### 1 [id number], 2631723873, 3243791967, 8862591, 8365995, 55797533 ####[facility] (DEFAULT)[address] [place] [address] 53765 Lymph Abs# 2.9 x10 Normal 1.3-2.9 [facility] Comment on above: Performed By: #### 1 [id number], 8691070545, 5511331891, 5710660, 3084127, 71905022 ####[facility] (DEFAULT)[address] [place] [address] 27668 Lymphocytes/100 WBC (Bld) 40 % Normal 14-48 [facility] Comment on above: Performed By: #### 1 235266570, 5698445652, 2653148711, 6563769, 3960469, 97509946 ####[facility] (DEFAULT)[address] [place] [address] 42792 Candler Abs# 0.5 x10 Normal 0.0-0.8 [facility] Comment on above: Performed By: #### 1 589449080, 1946246195, 2153700439, 1749104, 2719862, 15626617 ####[facility] (DEFAULT)[address] [place] [address] 73463 Neut Abs# 3.8 x10 Normal 1.5-9.2 [facility] Comment on above: Performed By: #### 1 879151898, 4713248115, 5330984416, 0593514, 1143184, 11210667 ####[facility] (DEFAULT)[address] [place] [address] 73704 Neutrophils/100 WBC (Bld) 52 % Normal 44-88 [facility] Comment on above: Performed By: #### 1 094549435, 2941536132, 1522577601, 1469339, 3387042, 75066737 ####[facility] (DEFAULT)[address] [place] [address] 72401 Auto Candler % 5 % Normal 1-12 [facility] Comment on above: Performed By: #### 1 486454167, 7326084, 19349137 #### [facility] (DEFAULT) [address] [place] [address] 82857 Baso Abs# 0.1 x10 Normal 0.0-0.2 [facility] Comment on above: Performed By: #### 1 902655639, 5079438, 66887588 #### [facility] (DEFAULT) [address] [place] [address] 58513 Basophils/100 WBC (Bld) 1.4 % Normal 0.2-2.0 [facility] Comment on above: Performed By: #### 1 151501150, 2950537, 30041293 #### [facility] (DEFAULT) [address] [place] [address] 08467 Eos Abs# 0.0 x10 Normal 0.0-0.4 [facility] Comment on above: Performed By: #### 1 316455013, 1775381, 13746276 #### [facility] (DEFAULT) [address] [place] [address] 99402 Eosinophils/100 WBC (Bld) 0.3 % Low 0.9-4.0 [facility] Comment on above: Performed By: #### 1 228121012, 3141827, 59561057 #### [facility] (DEFAULT) [address] [place] [address] Lymph Abs# 1.6 x10 Normal 1.3-2.9 [facility] Comment on above: Performed By: #### 1 839095491, 5540420, 18079035 #### [facility] (DEFAULT) [address] [place] [address] Lymphocytes/100 WBC (Bld) 30 % Normal 14-48 [facility] Comment on above: Performed By: #### 1 045285999, 2627603, 44775358 #### [facility] (DEFAULT) [address] [place] [address] Candler Abs# 0.2 x10 Normal 0.0-0.8 [facility] Comment on above: Performed By: #### 1 497183862, 4676565, 02074670 #### [facility] (DEFAULT) [address] [place] [address] 29017 Neut Abs# 3.3 x10 Normal 1.5-9.2 [facility] Comment on above: Performed By: #### 1 326158342, 7041456, 02375416 #### [facility] (DEFAULT) [address] [place] [address] 61639 Neutrophils/100 WBC (Bld) 63 % Normal 44-88 [facility] Comment on above: Performed By: #### 1 125278723, 3320865, 60778797 #### [facility] (DEFAULT) [address] [place] [address] CBC w/ Auto Diffon 5 Erythrocyte distribution width (RBC) [Ratio] 20.4 % High 11.5-15.0 [facility] Comment on above: Performed By: #### 1 304714195, 3834829423, 3695741983, 7008622, 9295156, 55739236 ####[facility] (DEFAULT)[address] [place] [address] Hematocrit (Bld) [Volume fraction] 35.6 % Normal 33.7-40.4 [facility] Comment on above: Performed By: #### 1 374602263, 2176697569, 1240160354, 2982805, 1923799, 30949009 ####[facility] (DEFAULT)[address] [place] [address] Hemoglobin (Bld) [Mass/Vol] 11.1 g/dL Low 11.3-15.9 [facility] Comment on above: Performed By: #### 1 161593084, 9016904033, 6929577732, 4699980, 5836962, 64825031 ####[facility] (DEFAULT)[address] [place] [address] Man Diff? Auto Invalid Interpretation Code [facility] Comment on above: Performed By: #### 1 232156499, 4927884516, 1195886967, 5305844, 8699687, 40520820 ####[facility] (DEFAULT)[address] [place] [address] MCH (RBC) [Entitic mass] 23 pg Low 24-34 [facility] Comment on above: Performed By: #### 1 914633404, 9686360356, 5369957074, 8557705, 4244472, 66207828 ####[facility] (DEFAULT)[address] [place] [address] MCHC (RBC) [Mass/Vol] 31 g/dL Normal 26-37 [facility] Comment on above: Performed By: #### 1 826702110, 6565716823, 2122165246, 7949173, 6504967, 54274741 ####[facility] (DEFAULT)[address] [place] [address] MCV (RBC) [Entitic vol] 73 fL Low 81-100 [facility] Comment on above: Performed By: #### 1 385203822, 3772263957, 1109658178, 6508286, 4362438, 29978035 ####[facility] (DEFAULT)[address] [place] [address] 56568 Platelet 499 x10 High 138-427 [facility] Comment on above: Performed By: #### 1 057247460, 5806728447, 2401647469, 9218014, 0842709, 52226672 ####[facility] (DEFAULT)[address] [place] [address] 55320 Platelet mean volume (Bld) [Entitic vol] 8.1 fL Normal 6.3-10.2 [facility] Comment on above: Performed By: #### 1 567120808, 8477762343, 9076775181, 6729168, 4356504, 84170285 ####[facility] (DEFAULT)[address] [place] [address] RBC 4.91 x10 Normal 3.70-5.30 [facility] Comment on above: Performed By: #### 1 762634803, 8781974627, 1860637905, 9955013, 6677968, 78111346 ####[facility] (DEFAULT)[address] [place] [address] WBC 7.2 x10 Normal 3.5-10.5 [facility] Comment on above: Performed By: #### 1 207586590, 6254894053, 7523182761, 8190114, 9394088, 38257193 ####[facility] (DEFAULT)[address] [place] [address] 27554 Erythrocyte distribution width (RBC) [Ratio] 19.9 % High 11.5-15.0 [facility] Comment on above: Performed By: #### 1 942180678, 8661366, 74863219 #### [facility] (DEFAULT) [address] [place] [address] Hematocrit (Bld) [Volume fraction] 34.0 % Normal 33.7-40.4 [facility] Comment on above: Performed By: #### 1 683367605, 2898058, 98165673 #### [facility] (DEFAULT) [address] [place] [address] Hemoglobin (Bld) [Mass/Vol] 10.7 g/dL Low 11.3-15.9 [facility] Comment on above: Performed By: #### 1 673083760, 4129442, 83216771 #### [facility] (DEFAULT) [address] [place] [address] Man Diff? Auto Invalid Interpretation Code [facility] Comment on above: Performed By: #### 1 [id number], 4184606, 46564974 #### [facility] (DEFAULT) [address] [place] [address] MCH (RBC) [Entitic mass] 23 pg Low 24-34 [facility] Comment on above: Performed By: #### 1 152000899, 3521198, 14571366 #### [facility] (DEFAULT) [address] [place] [address] MCHC (RBC) [Mass/Vol] 32 g/dL Normal 26-37 [facility] Comment on above: Performed By: #### 1 351966464, 2474615, 70752386 #### [facility] (DEFAULT) [address] [place] [address] MCV (RBC) [Entitic vol] 72 fL Low 81-100 [facility] Comment on above: Performed By: #### 1 596913450, 2615057, 24288785 #### [facility] (DEFAULT) [address] [place] [address] Platelet 469 x10 High 138-427 [facility] Comment on above: Performed By: #### 1 032122205, 2323596, 94720930 #### [facility] (DEFAULT) [address] [place] [address] Platelet mean volume (Bld) [Entitic vol] 7.7 fL Normal 6.3-10.2 [facility] Comment on above: Performed By: #### 1 443821542, 1578663, 71774341 #### [facility] (DEFAULT) [address] [place], [place] [address] RBC 4.72 x10 Normal 3.70-5.30 [facility] Comment on above: Performed By: #### 1 421559831, 5505750, 73437811 #### [facility] (DEFAULT) [address] [place] [address] 99820 WBC 5.2 x10 Normal 3.5-10.5 [facility] Comment on above: Performed By: #### 1 936059738, 5617556, 73399068 #### [facility] (DEFAULT) [address] [place] [address] 21084 CMP Standardon 07-10-2024 eGFR Non AA >[address] [facility] Comment on above: Performed By: #### 1 512309029, 1236092088, 1745007825, 8507512, 8365571, 81690053 ####[facility] (DEFAULT)[address] [place] [address] 04096 eGFR AA >[address] [facility] Comment on above: Performed By: #### 1 533446325, 0587746412, 4480386073, 5594199, 8688631, 82213725 ####[facility] (DEFAULT)[address] [place] [address] 95537 Albumin [Mass/Vol] 4.4 g/dL Normal 3.5-5.0 [facility] Comment on above: Performed By: #### 1 343650159, 8302362693, 6843420011, 9025839, 5392068, 61557831 ####[facility] (DEFAULT)[address] [place] [address] 20768 Albumin/Globulin [Mass ratio] 1.0 {ratio} Low 1.4-2.6 [facility] Comment on above: Performed By: #### 1 435225423, 5317585198, 7172247049, 2962771, 5528702, 59648500 ####[facility] (DEFAULT)[address] [place] [address] 54633 Alk Phos 64 IU/L Normal 32-91 [facility] Comment on above: Performed By: #### 1 581601466, 4194574692, 2187353129, 9566389, 7089324, 62306096 ####[facility] (DEFAULT)[address] [place] [address] 47998 ALT [Catalytic activity/Vol] 17.0 U/L Normal 14.0-54.0 [facility] Comment on above: Performed By: #### 1 151787195, 1562393415, 3360253860, 5825540, 6609785, 29950770 ####[facility] (DEFAULT)[address] [place] [address] 55083 Anion gap [Moles/Vol] 16.1 mmol/L Normal 5.0-19.0 [facility] Comment on above: Performed By: #### 1 738248920, 0843241058, 7001646504, 2830786, 9649873, 97643678 ####[facility] (DEFAULT)[address] [place] [address] 62074 AST [Catalytic activity/Vol] 22 U/L Normal 15-41 [facility] Comment on above: Performed By: #### 1 478798973, 8853087401, 2579621727, 7544418, 0808782, 60894071 ####[facility] (DEFAULT)[address] [place] [address] 71867 Bili Total 0.7 mg/dL Normal 0.3-1.2 [facility] Comment on above: Performed By: #### 1 618901173, 4137103256, 0122533933, 9353358, 1270358, 63648253 ####[facility] (DEFAULT)[address] [place] [address] 44046 Calcium [Mass/Vol] 9.3 mg/dL Normal 8.9-10.3 [facility] Comment on above: Performed By: #### 1 796610302, 4274861880, 6665295040, 6472970, 2380447, 68558095 ####[facility] (DEFAULT)[address] [place] [address] 06455 Chloride [Moles/Vol] 105 mmol/L Normal 101-111 [facility] Comment on above: Performed By: #### 1 825159148, 1646921426, 9620710739, 6379806, 5149773, 05425225 ####[facility] (DEFAULT)[address] [place] [address] 12525 CO2 [Moles/Vol] 21 mmol/L Normal 21-32 [facility] Comment on above: Performed By: #### 1 932781771, 8830202818, 6916154102, 4461820, 2280221, 31992351 ####[facility] (DEFAULT)[address] [place] [address] 46320 Creatinine [Mass/Vol] 0.90 mg/dL Normal 0.60-1.30 [facility] Comment on above: Performed By: #### 1 484904756, 1986492153, 5794814196, 3222394, 3210961, 63841886 ####[facility] (DEFAULT)[address] [place] [address] 33252 Globulin (S) [Mass/Vol] 4.3 g/dL Normal 1.5-4.3 [facility] Comment on above: Performed By: #### 1 604751379, 1279988570, 2280863795, 7209048, 5194688, 27195092 ####[facility] (DEFAULT)[address] [place] [address] 99798 Glucose [Mass/Vol] 100.0 mg/dL Normal 74.0-118.0 [facility] Comment on above: Performed By: #### 1 463579607, 6736706167, 5617580035, 1802397, 4492413, 50131385 ####[facility] (DEFAULT)[address] [place] [address] 94684 Osmolality 276 mOsm/L Invalid Interpretation Code [facility] Comment on above: Performed By: #### 1 022640535, 4251636618, 8275772110, 0059290, 7238592, 52396158 ####[facility] (DEFAULT)[address] [place] [address] 56796 Potassium [Moles/Vol] 3.1 mmol/L Low 3.6-5.1 [facility] Comment on above: Performed By: #### 1 558147624, 6167274078, 8835872470, 4297975, 2077403, 46178363 ####[facility] (DEFAULT)[address] [place] [address] 10261 Protein [Mass/Vol] 8.7 g/dL High 6.5-8.1 [facility] Comment on above: Performed By: #### 1 205333900, 7406624838, 5220388400, 4381553, 7663317, 57647698 ####[facility] (DEFAULT)[address] [place] [address] 85995 Sodium [Moles/Vol] 139.0 mmol/L Normal 136.0-144.0 [facility] Comment on above: Performed By: #### 1 512067152, 6522239294, 1530042567, 5953045, 6716889, 56610191 ####[facility] (DEFAULT)[address] [place] [address] 93260 Urea nitrogen [Mass/Vol] 8 mg/dL Normal 8-26 [facility] Comment on above: Performed By: #### 1 898224710, 1309821305, 0358011683, 9545579, 6869273, 56949377 ####[facility] (DEFAULT)[address] [place] [address] 75736 Urea nitrogen/Creatinine [Mass ratio] 8.8 mg/mg Normal 4.6-16.2 [facility] Comment on above: Performed By: #### 1 210617014, 4813528435, 7049277837, 2737438, 5320798, 23557658 ####[facility] (DEFAULT)[address] [place] [address] 92381 eGFR Non AA >[address] [facility] Comment on above: Performed By: #### 1 702194468, 3456844, 67701914 ####[facility] (DEFAULT)[address] [place] [address] 46291 eGFR AA >[address] [facility] Comment on above: Performed By: #### 1 022358023, 8570266, 54640694 ####[facility] (DEFAULT)[address] [place] [address] 07699 Albumin [Mass/Vol] 4.2 g/dL Normal 3.5-5.0 [facility] Comment on above: Performed By: #### 1 553508419, 2861356, 98325076 ####[facility] (DEFAULT)[address] [place] [address] Albumin/Globulin [Mass ratio] 1.0 {ratio} Low 1.4-2.6 [facility] Comment on above: Performed By: #### 1 662242743, 5714129, 90086120 ####[facility] (DEFAULT)[address] [place] [address] Alk Phos 62 IU/L Normal 32-91 [facility] Comment on above: Performed By: #### 1 980442176, 4127483, 36302524 ####[facility] (DEFAULT)[address] [place] [address] 88991 ALT [Catalytic activity/Vol] 18.0 U/L Normal 14.0-54.0 [facility] Comment on above: Performed By: #### 1 388663009, 7614500, 79629008 ####[facility] (DEFAULT)[address] [place] [address] 86499 Anion gap [Moles/Vol] 13.5 mmol/L Normal 5.0-19.0 [facility] Comment on above: Performed By: #### 1 074056737, 4754118, 01788787 ####[facility] (DEFAULT)[address] [place] [address] 01844 AST [Catalytic activity/Vol] 20 U/L Normal 15-41 [facility] Comment on above: Performed By: #### 1 009549144, 9546291, 86093304 ####[facility] (DEFAULT)[address] [place] [address] 44419 Bili Total 0.7 mg/dL Normal 0.3-1.2 [facility] Comment on above: Performed By: #### 1 949495389, 0701686, 32140951 ####[facility] (DEFAULT)[address] [place] [address] 65694 Calcium [Mass/Vol] 9.2 mg/dL Normal 8.9-10.3 [facility] Comment on above: Performed By: #### 1 304046311, 0995893, 89816970 ####[facility] (DEFAULT)[address] [place] [address] 64109 Chloride [Moles/Vol] 107 mmol/L Normal 101-111 [facility] Comment on above: Performed By: #### 1 194430840, 5103695, 83041161 ####[facility] (DEFAULT)[address] [place] [address] 32717 CO2 [Moles/Vol] 21 mmol/L Normal 21-32 [facility] Comment on above: Performed By: #### 1 912479619, 2847031, 94166229 ####[facility] (DEFAULT)[address] [place] [address] 65962 Creatinine [Mass/Vol] 0.74 mg/dL Normal 0.60-1.30 [facility] Comment on above: Performed By: #### 1 073110908, 7860145, 46455062 ####[facility] (DEFAULT)[address] [place] [address] 53235 Globulin (S) [Mass/Vol] 4.0 g/dL Normal 1.5-4.3 [facility] Comment on above: Performed By: #### 1 785206128, 8262355, 75127985 ####[facility] (DEFAULT)[address] [place] [address] 86579 Glucose [Mass/Vol] 109.0 mg/dL Normal 74.0-118.0 [facility] Comment on above: Performed By: #### 1 062091720, 6513276, 99925459 ####[facility] (DEFAULT)[address] [place] [address] 38006 Osmolality 274 mOsm/L Invalid Interpretation Code [facility] Comment on above: Performed By: #### 1 645064778, 1158201, 44854261 ####[facility] (DEFAULT)[address] [place] [address] 07012 Potassium [Moles/Vol] 3.5 mmol/L Low 3.6-5.1 [facility] Comment on above: Performed By: #### 1 783374766, 3498477, 63869379 ####[facility] (DEFAULT)[address] [place] [address] 71703 Protein [Mass/Vol] 8.2 g/dL High 6.5-8.1 [facility] Comment on above: Performed By: #### 1 009058422, 8828003, 72372487 ####[facility] (DEFAULT)[address] [place] [address] 42151 Sodium [Moles/Vol] 138.0 mmol/L Normal 136.0-144.0 [facility] Comment on above: Performed By: #### 1 133132469, 3794771, 82145053 ####[facility] (DEFAULT)[address] [place] [address] 76962 Urea nitrogen [Mass/Vol] 8 mg/dL Normal 8-26 [facility] Comment on above: Performed By: #### 1 325526192, 2848622, 95360778 ####[facility] (DEFAULT)[address] [place] [address] Urea nitrogen/Creatinine [Mass ratio] 10.8 mg/mg Normal 4.6-16.2 [facility] Comment on above: Performed By: #### 1 386855127, 1754462, 54540572 ####[facility] (DEFAULT)[address] [place] [address] 43703 Extra Blueon 07-10-2024 Tube Collected Yes Invalid Interpretation Code [facility] Comment on above: Performed By: #### 1 [id number], 7046003203, 0185930846, 1505548, 1283587, 26909681 ####[facility] (DEFAULT)[address] [place] [address] 34068 Extra Redon 07-10-2024 Tube Collected Yes Invalid Interpretation Code [facility] Comment on above: Performed By: #### 1 6578561, 0146231, 0509086073, 6594892912, 2851017606 ####[facility] (DEFAULT)[address] [place] [address] Lipaseon 07-10-2024 Lipase Level 50.0 IU/L Normal 22.0-51.0 [facility] Comment on above: Performed By: #### 1 076508677, 6714938822, 3160050095, 1381872, 3031776, 98636899 ####[facility] (DEFAULT)[address] [place] [address] UA Awuzg9rc 07-10-2024 UA Bacteria None [facility] Comment on above: Order Comment: Urina lysis Microscopic order added on by [employer] system. Performed By: #### 1 [id number] #### [facility] (DEFAULT) [address] [place] [address] UA RBC 0-[address] [facility] Comment on above: Order Comment: Urina lysis Microscopic order added on by [employer] system. Performed By: #### 1 [id number] #### [facility] (DEFAULT) [address] [place] [address] UA Squam Epi Few [facility] Comment on above: Order Comment: Urina lysis Microscopic order added on by [employer] system. Performed By: #### 1 [id number] #### [facility] (DEFAULT) [address] [place] [address] UA WBC 0-[address] [facility] Comment on above: Order Comment: Urina lysis Microscopic order added on by [employer] system. Performed By: #### 1 [id number], [id number] #### [facility] (DEFAULT) [address] [place] [address] UA w Culture if Ind Standard on 07-10-2024 Breakpoint UA [facility] Comment on above: Performed By: #### 1 [id number], [id number] #### [facility] (DEFAULT) [address] [place] [address] Color (U) Yellow [facility] Comment on above: Performed By: #### 1 [id number], [id number] #### [facility] (DEFAULT) [address] [place] [address] Culture? Not Indicated Invalid Interpretation Code [facility] Comment on above: Result Comment: Resu lt created by rule GL_MAGR_ADD_UA_CULT Result created by rule GL_MAGR_ADD_UA_CULT Result created by rule GL_MAGR_ADD_UA_CULT1 Performed By: #### 1 [id number], [id number] #### [facility] (DEFAULT) [address] [place] [address] 54757 Glucose (U) [Mass/Vol] Negative Normal [facility] Comment on above: Performed By: #### 1 [id number], [id number] #### [facility] (DEFAULT) [address] [place] [address] 86596 Ketones Ql (U) Negative [facility] Comment on above: Performed By: #### 1 [id number], [id number] #### [facility] (DEFAULT) [address] [place] [address] 94384 Micro? Indicated Invalid Interpretation Code [facility] Comment on above: Result Comment: Resu lt created by rule GL_MAGR_ADD_UA_MICRO Performed By: #### 1 [id number], [id number] #### [facility] (DEFAULT) [address] [place] [address] 49282 UA Bilirubin Negative Normal [facility] Comment on above: Performed By: #### 1 [id number], [id number] #### [facility] (DEFAULT) [address] [place] [address] 39774 UA Blood TRACE Abnormal NEGATIVE [facility] Comment on above: Performed By: #### 1 [id number], [id number] #### [facility] (DEFAULT) [address] [place] [address] 79866 UA Clarity CLEAR Normal CLEAR [facility] Comment on above: Performed By: #### 1 [id number], [id number] #### [facility] (DEFAULT) [address] [place] [address] 56125 UA Leuk Est Negative Normal NEGATIVE [facility] Comment on above: Performed By: #### 1 [id number], [id number] #### [facility] (DEFAULT) [address] [place] [address] 82695 UA Nitrite Negative Normal NEGATIVE [facility] Comment on above: Performed By: #### 1 [id number], [id number] #### [facility] (DEFAULT) [address] [place] [address] 24340 UA pH 6.0 Normal 5-8 [facility] Comment on above: Performed By: #### 1 [id number], [id number] #### [facility] (DEFAULT) [address] [place] [address] 63440 UA Protein Negative Normal NEGATIVE [facility] Comment on above: Performed By: #### 1 [id number], [id number] #### [facility] (DEFAULT) [address] [place] [address] UA Spec Grav 1.025 Normal 1.001-1.035 [facility] Comment on above: Performed By: #### 1 [id number], [id number] #### [facility] (DEFAULT) [address] [place] [address] UA Urobilinogen 0.2 mg/dL Normal 0.2-1.0 [facility] Comment on above: Performed By: #### 1 [id number], [id number] #### [facility] (DEFAULT) [address] [place] [address] Urine Source Clean Catch Normal [facility] Comment on above: Performed By: #### 1 [id number], [id number] #### [facility] (DEFAULT) [address] [place] [address] [facility] Comment on above: Performed By: #### 1 [id number] ####[facility] (DEFAULT)[address] [place] [address] Color (U) Straw Normal [facility] Comment on above: Performed By: #### 1 [id number] ####[facility] (DEFAULT)[address] [place] [address] Culture? Not Indicated Invalid Interpretation Code [facility] Comment on above: Result Comment: Resu lt created by rule GL_MAGR_ADD_UA_CULT1 Performed By: #### 1 [id number] ####[facility] (DEFAULT)[address] [place] [address] 70272 Glucose (U) [Mass/Vol] 100 mg/dL Normal [facility] Comment on above: Performed By: #### 1 [id number] ####[facility] (DEFAULT)[address] [place] [address] 11941 Ketones Ql (U) Negative Normal [facility] Comment on above: Performed By: #### 1 [id number] ####[facility] (DEFAULT)[address] [place] [address] 75997 Micro? Not Indicated Invalid Interpretation Code [facility] Comment on above: Result Comment: Resu lt created by rule GL_MAGR_ADD_UA_MICRO Performed By: #### 1 [id number] ####[facility] (DEFAULT)[address] [place] [address] 68238 UA Bilirubin Negative Normal [facility] Comment on above: Performed By: #### 1 [id number] ####[facility] (DEFAULT)[address] [place] [address] 52688 UA Blood Negative Normal NEGATIVE [facility] Comment on above: Performed By: #### 1 [id number] ####[facility] (DEFAULT)[address] [place] [address] 91742 UA Clarity CLEAR Normal CLEAR [facility] Comment on above: Performed By: #### 1 [id number] ####[facility] (DEFAULT)[address] [place] [address] 83338 UA Leuk Est Negative Normal NEGATIVE [facility] Comment on above: Performed By: #### 1 [id number] ####[facility] (DEFAULT)[address] [place] [address] 42900 UA Nitrite Negative Normal NEGATIVE [facility] Comment on above: Performed By: #### 1 [id number] ####[facility] (DEFAULT)[address] [place] [address] 36713 UA pH 6.0 Normal 5-8 [facility] Comment on above: Performed By: #### 1 [id number] ####[facility] (DEFAULT)[address] [place] [address] UA Protein Negative Normal NEGATIVE [facility] Comment on above: Performed By: #### 1 [id number] ####[facility] (DEFAULT)[address] [place] [address] UA Spec Grav <=1.005 Normal 1.001-1.035 [facility] Comment on above: Performed By: #### 1 [id number] ####[facility] (DEFAULT)[address] [place] [address] UA Urobilinogen 0.2 mg/dL Normal 0.2-1.0 [facility] Comment on above: Performed By: #### 1 [id number] ####[facility] (DEFAULT)[address] [place] [address] Urine Source Clean Catch Normal [facility] Comment on above: Performed By: #### 1 [id number] ####[facility] (DEFAULT)[address] [place] [address] CBC AND AUTO DIFFon 07-07-19 25 ABSOLUTE BASOPHIL 0.1 X10E9/L Normal 0.0-0.2 [facility] Comment on above: Performed By: #### C BCA, CMP, 3040-3, 99384-6, 1987-10, #### [facility] ([id number]) [address] [place] [address] 04711 ABSOLUTE NEUTROPHIL 2.1 X10E9/L Normal 1.5-6.6 [facility] Comment on above: Performed By: #### C BCA, CMP, 3040-3, 16125-0, 1987-10, #### [facility] ([id number]) [address] [place] [address] 37314 Basophils/100 WBC (Bld) 1.3 % Normal [facility] Comment on above: Performed By: #### C BCA, CMP, 3040-3, 39769-3, 1987-10, #### [facility] ([id number]) [address] [place] [address] Eosinophils (Bld) [#/Vol] 0.1 10*3/uL Normal 0.0-0.4 [facility] Comment on above: Performed By: #### C HEATH [facility], 3039-3, , 1987-10, #### [facility] ([id number]) [address] [place] [address] 75031 Eosinophils/100 WBC (Bld) 1.7 % Normal [facility] Comment on above: Performed By: #### C HEATH [facility], 3039-08, , 1987-10, #### [facility] ([id number]) [address] [place] [address] 46626 Erythrocyte distribution width (RBC) [Ratio] 19.6 % High 11.5-15.0 [facility] Comment on above: Performed By: #### C HEATH [facility], 3, , 1987-10, #### [facility] ([id number]) [address] [place] [address] 15585 Hematocrit (Bld) [Volume fraction] 33.8 % Low 35-47 [facility] Comment on above: Performed By: #### Leila JOE [facility], 3039-08, , 1987-10, #### [facility] ([id number]) [address] [place] [address] 38257 Hemoglobin (Bld) [Mass/Vol] 10.7 g/dL Low 11.7-15.5 [facility] Comment on above: Performed By: #### C HEATH [facility], 3039-3, , 1987-10, #### [facility] ([id number]) [address] [place] [address] 22090 Lymphocytes (Bld) [#/Vol] 2.3 10*3/uL Normal 1.0-3.5 [facility] Comment on above: Performed By: #### C BCA, CMP, 0-3, , 1987-10, #### [facility] ([id number]) [address] [place] [address] 00890 Lymphocytes/100 WBC (Bld) 46.5 % Normal [facility] Comment on above: Performed By: #### C BCA, CMP, 3039-3, , 1987-10, #### [facility] ([id number]) [address] [place] [address] 08113 MCH (RBC) [Entitic mass] 22.8 pg Low 27-34 [facility] Comment on above: Performed By: #### C HEATH, CMP, 3039-08, , 1987-10, #### [facility] ([id number]) [address] [place] [address] 83976 MCHC (RBC) [Mass/Vol] 31.8 g/dL Low 32-36 [facility] Comment on above: Performed By: #### C HEATH, CMP, 3039-08, , 1987-10, #### [facility] ([id number]) [address] [place] [address] 46610 MCV (RBC) [Entitic vol] 72 fL Low 80-100 [facility] Comment on above: Performed By: #### C BCA, CMP, 3039-3, , 1987-10, #### [facility] ([id number]) [address] [place] [address] 84597 Monocytes (Bld) [#/Vol] 0.4 10*3/uL Normal 0-0.9 [facility] Comment on above: Performed By: #### C BCA, CMP, 3039-, , 1987-10, #### [facility] ([id number]) [address] [place] [address] 22214 Monocytes/100 WBC (Bld) 8.2 % Normal [facility] Comment on above: Performed By: #### C BCA, CMP, 3040-3, 12473-1, 1987-10, #### [facility] ([id number]) [address] [place] [address] 64389 Neutrophils/100 WBC (Bld) 42.3 % Normal [facility] Comment on above: Performed By: #### C BCA, CMP, 0-3, , 1987-10, #### [facility] ([id number]) [address] [place] [address] 48195 Platelet mean volume (Bld) [Entitic vol] 7.4 fL Normal 7-12 [facility] Comment on above: Performed By: #### C BCA, CMP, 3040-3, , 1987-10, #### [facility] ([id number]) [address] [place] [address] 91509 Platelets (Bld) [#/Vol] 480 10*3/uL High 150-450 [facility] Comment on above: Performed By: #### Leila BCA, CMP, 3040-3, , 1987-10, #### [facility] ([id number]) [address] [place] [address] 62717 RBC COUNT 4.70 X10E12/L Normal 3.80-5.20 [facility] Comment on above: Performed By: #### C BCA, CMP, 3040-3, 14395-6, 1987-10, #### [facility] ([id number]) [address] [place] [address] 48743 WBC (Bld) [#/Vol] 4.9 10*3/uL Normal 4.0-11.0 [facility] Comment on above: Performed By: #### C BCA, CMP, 3040-3, 23849-7, 1987-10, #### [facility] ([id number]) [address] [place] [address] 54120 COMPREHENSIVE METABOLIC PANE Van 07-07-2024 Albumin [Mass/Vol] 4.1 g/dL Normal 3.2-5.3 [facility] Comment on above: Performed By: #### C BCA, CMP, 3040-3, 89501-5, 1987-10, #### [facility] ([id number]) [address] [place] [address] 77168 ALP [Catalytic activity/Vol] 67 U/L Normal 39-130 [facility] Comment on above: Performed By: #### C BCA, CMP, 3040-3, 39895-0, 1987-10, #### [facility] ([id number]) [address] [place] [address] 57758 ALT [Catalytic activity/Vol] 15 U/L Normal 0-31 [facility] Comment on above: Performed By: #### C BCA, CMP, 3040-3, 71369-6, 1987-10, #### [facility] ([id number]) [address] [place] [address] 67523 Anion gap [Moles/Vol] 7 mmol/L Normal 5-15 [facility] Comment on above: Performed By: #### C BCA, CMP, 3040-3, 44935-7, 1987-10, #### [facility] ([id number]) [address] [place] [address] 06311 AST [Catalytic activity/Vol] 19 U/L Normal 0-41 [facility] Comment on above: Performed By: #### C BCA, CMP, 3040-3, 55518-7, 1987-10, #### [facility] ([id number]) [address] [place] [address] 75505 Bilirubin [Mass/Vol] 0.6 mg/dL Normal 0.3-1.2 [facility] Comment on above: Performed By: #### C BCA, CMP, 3040-3, 35328-6, 1987-10, #### [facility] ([id number]) [address] [place] [address] 70389 Calcium [Mass/Vol] 9.1 mg/dL Normal 8.5-10.5 [facility] Comment on above: Performed By: #### C BCA, CMP, 3040-3, 08538-4, 1987-10, #### [facility] ([id number]) [address] [place] [address] 39623 Chloride [Moles/Vol] 107 mmol/L Normal 98-109 [facility] Comment on above: Performed By: #### C BCA, CMP, 3040-3, 59709-0, 1987-10, #### [facility] ([id number]) [address] [place] [address] 46858 CO2 [Moles/Vol] 24 mmol/L Normal 22-32 [facility] Comment on above: Performed By: #### C BCA, CMP, 3040-3, 30575-4, 1987-10, #### [facility] ([id number]) [address] [place] [address] 29509 Creatinine [Mass/Vol] 0.88 mg/dL Normal 0.40-1.00 [facility] Comment on above: Result Comment: METH OD TRACEABLE TO IDMS STANDARD Performed By: #### C BCA, CMP, 3040-3, 11304-4, 1987-10, #### [facility] ([id number]) [address] [place] [address] 49199 GFR/1.73 sq M.predicted among non-blacks MDRD (S/P/Bld) [Vol rate/Area] 87 mL/min/{1.73_m2} Normal >59 [facility] Comment on above: Result Comment: Reported eGFR is based on the CKD-EPI 2020 equation that does not use a race coefficient. Performed By: #### C HEATH, CMP, 3040-3, 40466-3, 1987-10, #### [facility] ([id number]) [address] [place] [address] 94404 Glucose [Mass/Vol] 97 mg/dL Normal 65-99 [facility] Comment on above: Performed By: #### C HEATH CMP, 3040-3, 50425-9, 1987-10, #### [facility] ([id number]) [address] [place] [address] 89326 Potassium [Moles/Vol] 3.7 mmol/L Normal 3.5-5.0 [facility] Comment on above: Performed By: #### C HEATH, CMP, 3040-3, 87799-4, 1987-10, #### [facility] ([id number]) [address] [place] [address] 21134 Protein [Mass/Vol] 7.6 g/dL Normal 6.0-8.0 [facility] Comment on above: Performed By: #### C BCA, CMP, 3040-3, 31900-8, 1987-10, #### [facility] ([id number]) [address] [place] [address] 82790 Sodium [Moles/Vol] 138 mmol/L Normal 134-146 [facility] Comment on above: Performed By: #### C BCA, CMP, 3040-3, 30004-9, #### [facility] ([id number]) [address] [place] [address] Urea nitrogen [Mass/Vol] 7 mg/dL Normal 5- [facility] Comment on above: Performed By: #### C BCA, CMP, 3040-3, 48423-7, 1987-10, #### [facility] ([id number]) [address] [place] [address] CRP [Mass/Vol]on 07-07-2024 C REACTIVE PROTEIN 0.5 mg/dL Normal 0.000-0.744 [facility] Comment on above: Performed By: #### C BCA, CMP, 3040-3, 85153-8, #### [facility] ([id number]) [address] [place] [address] CT ABDOMEN AND PELVIS WO CON Ton [...] Randle MD on 07/07/2024 5:58 PM Normal [facility] HCG ( test) Ql (U)o n 07-07-2024 Beta HCG ( test) Ql (U) Negative Normal NEG [facility] Comment on above: Performed By: #### C HEATH, CMP, 3040-3, 33042-9, 1987-10, #### [facility] ([id number]) [address] [place] [address] 46266 LIPASEon 07-07-2024 Lipase [Catalytic activity/Vol] 35 U/L Normal 17-40 [facility] Comment on above: Performed By: #### C HEATH, CMP, 3040-3, 65242-4, 1987-10, #### [facility] ([id number]) [address] [place] [address] 10389 Lactate (P arely) [Moles/Vol]o n 07-07-2024 LACTATE W/REFLEX 1.5 mmol/L Normal 0.4-2.0 [facility] Comment on above: Result Comment: Result did not trigger repeat Lactate, re-order if needed. Performed By: #### C HEATH, CMP, 3039-3, , 1987-10, #### [facility] ([id number]) [address] [place] [address] 37543 URN MACROSCOPIC NURon 2024 BILIRUBIN AUDREY Negative Normal [facility] Comment on above: Performed By: #### C HEATH, CMP, 3039-3, , 1987-10, #### [facility] ([id number]) [address] [place] [address] 39128 BLOOD/HGB AUDREY Small Abnormal NEG [facility] Comment on above: Performed By: #### C BCA, CMP, 3040-3, 34691-6, 1987-10, #### [facility] ([id number]) [address] [place] [address] [place] [address] GLUCOSE AUDREY Negative Normal NEG [facility] Comment on above: Performed By: #### C BCA, CMP, 3040-3, , 1987-10, #### [facility] ([id number]) [address] [place] [address] 83667 KETONES AUDREY Negative Normal NEG [facility] Comment on above: Performed By: #### C BCA, CMP, 3040-3, 41659-7, 1987-10, #### [facility] ([id number]) [address] [place] [address] 78506 LEUKOCYTE ESTERASE AUDREY Trace Abnormal NEG [facility] Comment on above: Performed By: #### C BCA, CMP, 0-3, , 1987-10, #### [facility] ([id number]) [address] [place] [address] 87895 NITRITE AUDREY Negative Normal NEG [facility] Comment on above: Performed By: #### C BCA, CMP, 3040-3, 66940-9, 1987-10, #### [facility] ([id number]) [address] [place] [address] 98624 PH AUDREY 7.0 Normal 5.0-8.5 [facility] Comment on above: Performed By: #### C BCA, CMP, 3040-3, , 1987-10, #### [facility] ([id number]) [address] [place] [address] 45275 PROTEIN AUDREY Negative Normal NEG [facility] Comment on above: Performed By: #### C BCA, CMP, 3040-3, 27652-6, 1987-10, #### [facility] ([id number]) [address] [place] [address] 96642 SPECIFIC GRAVITY AUDREY 1.010 Normal 1.003-1.035 [facility] Comment on above: Performed By: #### C BCA, CMP, 3040-3, 44160-0, 1987-10, #### [facility] ([id number]) [address] [facility], [place] [address] UROBILINOGEN AUDREY 0.2 eu/dL Normal <1.1 [facility] Comment on above: Performed By: #### C BCA, CMP, 3040-3, 66805-5, 1987-10, #### [facility] ([id number]) [address] [facility], [place] [address] ED Clinical Summaryon 2024 ED Clinical Summary ED Clinical Summary [address] [address] ED Clinical Summary Person Information [facility] Age[facility] 39 Years : 1985 Sex: [...] 01:38:52 06/28/2024 01:38:52 06/28/2024 01:38:52 ADDRESS: [address] [place] [id number] [facility] DOC NOTES: MEDICAL INFORMATION: Prescriptions Given: Medications to Continue with No Changes Other Medications acetaminophen-oxycodon e (Percocet 5 mg-325 mg oral tablet) 1 Tablets By Mouth every 8 hours for 3 Days. Refills: 0. diflunisal (diflunisal 500 mg Tab) 1 Tablets By Mouth every 12 hours. Refills: 0. PATIENT EDUCATION INFORMATION: Instructions: Abdominal Pain, Adult, Xzzf-bz-Obfj Follow up: With: Address: When: [employer] [facility] [place] [address] Business (1) In 3 days 07/01/2024 Comments: Please follow-up with your primary care doctor and [employer] for further evaluation and management. Return to the ED for any new or worsening symptoms. With: Address: When: XXXX NONE , [place] In 3 days DIAGNOSIS: Abdominal pain; Nausea Normal [facility] ED Note-Physicianon 06-28-19 ED Note-Physician ED Note-Physician [...] rebound syndrome and follows with OB in [place]. Review of Systems A 10 point review [...] and Complexity of Problems Differential Diagnosis: [] [facility] Data External documents reviewed: [] My [...] when reviewing her OARRS. I did review [facility] patient was seen at both [place] and [place] today. Discussed with the patient she states [...] prescription medications Follow-up With When Contact Information WHILL In 3 days 07/01/[address] [place] [phone]- Business (1) Additional Instructions: Please follow-up with your primary care doctor and [employer] for further evaluation and management. Return to the ED for any new or worsening symptoms. XXXX NONE In 3 days [place] Additional Instructions: Patient Education Abdominal Pain, Adult, Utzg-pg-Gtpx Problem List/Past (more content not included)... Normal [facility] Comment on above: Result Comment: Elec tronically Signed By: Jordyn Willett DO\.br\Date and Time Signed: 06/28/24 03:41 EST ED Patient Summaryon 025 ED Patient Summary ED Patient Summary [address] [address] Patient Discharge Instructions Person Information Name: ANTONIA NOYOLA Age: 39 Years Arrival Date: 06/27/2024 21:46:23 Discharge Diagnosis: Abdominal pain; Nausea Primary Care Physician: NONE, XXXX Provider Information Primary Provider: Jordyn Willett DO Advanced Clinical Informatics Manager:None The exam and treatment you received in the Emergency Department were for an urgent problem and are not intended as complete care. It is important that you follow up with a doctor, nurse practitioner, or physician???s optometric assistant for ongoing care. If your symptoms become worse or you do not improve as expected and you are unable to reach your usual health care provider, you should return to the Emergency Department. We are available 24 hours a day. ANTONIA NOYOLA has been given the following list of patient education materials, prescriptions and follow-up instructions: Follow-up Instructions: With: Address: When: WHILL [address] [place] [id number] Business (1) In 3 days 07/01/2024 Comments: Please follow-up with your primary care doctor and [employer] for further evaluation and management. Return to the ED for any new or worsening symptoms. With: Address: When: XXXX [facility] , [place] In 3 days In the event that this physician does not participate in your insurance network, please consult with your insurance company to find a nearby participating provider. Patient Education Materials: Abdominal Pain, Adult, Eyap-jc-Hsqx A MESSAGE TO ALL PATIENTS REGARDING OPIOIDS PRESCRIPTION OPIOIDS: WHAT YOU NEED TO KNOW Prescription opioids can be used to help relieve khpewynk-zp-vehwls pain and are often prescribed following a [...] Administration (www.fda.gov/Boris (more content not included)... Normal [facility] BMPon 06-27-2024 Anion gap [Moles/Vol] 14 mmol/L Normal -16 [facility] Comment on above: Performed By: #### 2 [id number] #### [facility] [address] [place] [address] Calcium [Mass/Vol] 10.3 mg/dL Normal 8.9-11.1 [facility] Comment on above: Performed By: #### 2 [id number] #### [facility] [address] [place] [address] Chloride [Moles/Vol] 106 mmol/L Normal 101-111 [facility] Comment on above: Performed By: #### 2 [id number] #### [facility] [address] [place] [address] CO2 [Moles/Vol] 23 mmol/L Normal 21-31 [facility] Comment on above: Performed By: #### 2 [id number] #### [facility] [address] [place] [address] Creatinine [Mass/Vol] 0.9 mg/dL Normal 0.5-1.3 [facility] Comment on above: Performed By: #### [id number] #### [facility] [address] [place] [address] Glucose [Mass/Vol] 108 mg/dL Normal 55-199 [facility] Comment on above: Performed By: #### [id number] #### [facility] [address] [place] [address] Potassium [Moles/Vol] 3.9 mmol/L Normal 3.5-5.3 [facility] Comment on above: Performed By: #### [id number] #### [facility] [address] [place] [address] Sodium [Moles/Vol] 139 mmol/L Normal 135-145 [facility] Comment on above: Performed By: #### 2 [id number] #### [facility] [address] [place] [address] Urea nitrogen [Mass/Vol] 7 mg/dL Normal 5-21 [facility] Comment on above: Performed By: #### 2 [id number] #### [facility] [address] [place] [address] Urea nitrogen/Creatinine [Mass ratio] 8 No Units Low 10-20 [facility] Comment on above: Performed By: #### 2 [id number] #### [facility] [address] [place] [address] CBC w/ Auto Diffon 5 Basophils/100 WBC (Bld) 1.1 % Normal 0.0-2.0 [facility] Comment on above: Performed By: #### 2 [id number] #### [facility] [address] [place] [address] Basophils/Leukocytes Auto (Bld) [Pure # fraction] 0.1 E9/L Normal 0.0-0.2 [facility] Comment on above: Performed By: #### 2 [id number] #### [facility] [address] [place] [address] Eosinophils (Bld) [#/Vol] 0.0 E9/L Normal 0.0-0.5 [facility] Comment on above: Performed By: #### 2 [id number] #### [facility] [address] [place] [address] Eosinophils/100 WBC (Bld) 0.2 % Normal 0.0-8.0 [facility] Comment on above: Performed By: #### 2 [id number] #### [facility] [address] [place] [address] Erythrocyte distribution width (RBC) [Ratio] 19.8 % High 10.9-14.2 [facility] Comment on above: Performed By: #### 2 [id number] #### [facility] [address] [place] [address] Hematocrit (Bld) [Volume fraction] 37.8 % Normal 34.0-46.0 [facility] Comment on above: Performed By: #### 2 [id number] #### [facility] [address] [place] [address] Hemoglobin (Bld) [Mass/Vol] 12.0 g/dL Normal 12.0-16.0 [facility] Comment on above: Performed By: #### 2 [id number] #### [facility] [address] [place] [address] Hypochromia Auto Ql (Bld) PRESENT Invalid Interpretation Code [facility] Comment on above: Performed By: #### 2 [id number] #### [facility] [address] [place] [address] Lymphocytes (Bld) [#/Vol] 1.7 E9/L Normal 1.0-4.0 [facility] Comment on above: Performed By: #### 2 [id number] #### [facility] [address] [place] [address] Lymphocytes/100 WBC (Bld) 23.6 % Normal 14.0-50.0 [facility] Comment on above: Performed By: #### 2 [id number] #### [facility] [address] [place] [address] MCH (RBC) [Entitic mass] 22.8 pg Low 27.0-34.0 [facility] Comment on above: Performed By: #### 2 [id number] #### [facility] [address] [place] [address] MCHC (RBC) [Mass/Vol] 31.8 g/dL Normal 31.4-36.0 [facility] Comment on above: Performed By: #### 2 [id number] #### [facility] [address] [place] [address] MCV (RBC) [Entitic vol] 71.7 fL Low 80.0-100.0 F [facility] Comment on above: Performed By: #### 2 [id number] #### [facility] [address] [place] [address] Microcytes Ql (Bld) PRESENT Invalid Interpretation Code [facility] Comment on above: Performed By: #### 2 [id number] #### [facility] [address] [place] [address] Monocytes (Bld) [#/Vol] 0.3 E9/L Normal 0.2-1.0 [facility] Comment on above: Performed By: #### 2 [id number] #### [facility] [address] [place] [address] Neutrophils (Bld) [#/Vol] 5.0 E9/L Normal 2.0-7.5 [facility] Comment on above: Performed By: #### 2 [id number] #### [facility] [address] [place] [address] Neutrophils/100 WBC (Bld) 71.3 % Normal 36.0-75.0 [facility] Comment on above: Performed By: #### 2 [id number] #### [facility] [address] [place] [address] Platelet 552.0 E9/L High 150.0-500.0 [facility] Comment on above: Performed By: #### 2 [id number] #### [facility] [address] [place] [address] Platelet mean volume (Bld) [Entitic vol] 7.5 fL Normal 6.4-10.8 [facility] Comment on above: Performed By: #### 2 [id number] #### [facility] [address] [place] [address] RBC (Bld) [#/Vol] 5.3 E12/L Normal 4.3-5.9 [facility] Comment on above: Performed By: #### 2 [id number] #### [facility] [address] [place] [address] RBC size Nom (Bld) SEE MORPHOLOGY Invalid Interpretation Code [facility] Comment on above: Performed By: #### 2 [id number] #### [facility] [address] [place] [address] WBC corrected for nucl RBC Auto (Bld) [#/Vol] 7.0 E9/L Normal 4.0-11.0 [facility] Comment on above: Performed By: #### 2 [id number] #### [facility] [address] [place] [address] CBC with Diffon 06-27-2024 Basophils (Bld) [#/Vol] 0.09 10*3/uL [facility] Basophils/100 WBC (Bld) 1 % 0 - 2 % [facility] Eosinophils (Bld) [#/Vol] 0.06 10*3/uL [facility] Eosinophils/100 WBC (Bld) 1 % 1 - 4 % [facility] Erythrocyte distribution width (RBC) [Ratio] 17.9 % High 11.8 - 14.4 % [facility] Hematocrit (Bld) [Volume fraction] 35.1 % Low 36.3 - 47.1 % [facility] Hemoglobin (Bld) [Mass/Vol] 10.6 g/dL Low 11.9 - 15.1 g/dL [facility] Immature granulocytes (Bld) [#/Vol] [facility] Immature granulocytes/100 WBC (Bld) 0 % 0 [facility] Interpretation and review of laboratory results Abnormal [facility] Lymphocytes/100 WBC (Bld) 50 % High 24 - 43 % [facility] Lymphocytes/100 WBC (Bld) 3.25 % [facility] MCH (RBC) [Entitic mass] 22.3 pg Low 25.2 - 33.5 pg [facility] MCHC (RBC) [Mass/Vol] 30.2 g/dL 28.4 - 34.8 g/dL [facility] MCV (RBC) [Entitic vol] 73.9 fL Low 82.6 - 102.9 fL [facility] Monocytes/100 WBC (Bld) 7 % 3 - 12 % [facility] Monocytes/100 WBC (Bld) 0.48 % [facility] on [facility] Neutrophils/100 WBC (Bld) 41 % 36 - 65 % [facility] Nucleated RBC/100 WBC (Bld) [Ratio] 0.0 % 0.0 per 100 WBC [facility] Platelet mean volume (Bld) [Entitic vol] 9.3 fL 8.1 - 13.5 fL [facility] Platelets (Bld) [#/Vol] 533 10*3/uL High [facility] RBC (Bld) [#/Vol] 4.75 10*6/uL 3.95 - 5.1 1 m/uL [facility] Segmented neutrophils/100 WBC (Bld) 2.65 % [facility] WBC other (Bld) [#/Vol] 6.5 B on [facility] Abs. Basophil 0.09 k/uL Normal 0.00-0.20 [facility] Comment on above: Performed By: #### C DP, CP, LIP #### [facility] [address] [place] [address] [employer]: Jennifer Freire MD Abs.Imm.Granulocyte <0.03 Normal 0.00-0.30 [facility] Comment on above: Performed By: #### C DP, CP, LIP #### [address] [place] [id number] [employer]: Jennifer Freire MD Abs.Neutrophil (Seg) 2.65 k/uL Normal 1.50-8.10 [facility] Comment on above: Performed By: #### C DP, CP, LIP #### [address] [place] [address] [employer]: Jennifer Freire MD Basophils/100 WBC (Bld) 1 % Normal 0-2 [facility] Comment on above: Performed By: #### C DP, CP, LIP #### [address] [place] [address] [employer]: Jennifer Freire MD Eosinophils (Bld) [#/Vol] 0.06 10*3/uL Normal 0.00-0.44 [facility] Comment on above: Performed By: #### C DP, CP, LIP #### [address] [place] [id number] [employer]: Jennifer Freire MD Eosinophils/100 WBC (Bld) 1 % Normal 1-4 [facility] Comment on above: Performed By: #### C DP, CP, LIP #### [address] [place] [place] [address] [employer]: Jennifer Freire MD Erythrocyte distribution width (RBC) [Ratio] 17.9 % High 11.8-14.4 [facility] Comment on above: Performed By: #### C DP, CP, LIP #### [address] [place], [place] [address] [employer]: Jennifer Freire MD Hematocrit (Bld) [Volume fraction] 35.1 % Low 36.3-47.1 [facility] Comment on above: Performed By: #### C DP, CP, LIP #### [address] [place] [place] [address] [employer]: Jennifer Freire MD Hemoglobin (Bld) [Mass/Vol] 10.6 g/dL Low 11.9-15.1 [facility] Comment on above: Performed By: #### C DP, CP, LIP #### [address] [place] [place] [address] [employer]: Jennifer Freire MD Immature granulocytes/100 WBC (Bld) 0 % Normal 0 [facility] Comment on above: Performed By: #### C DP, CP, LIP #### [address] [place], [place] [address] [employer]: Jennifer Freire MD Lymphocytes (Bld) [#/Vol] 3.25 10*3/uL Normal 1.10-3.70 [facility] Comment on above: Performed By: #### C DP, CP, LIP #### [address] [place], [place] [id number] [employer]: Jennifer Freire MD Lymphocytes/100 WBC (Bld) 50 % High 24-43 [facility] Comment on above: Performed By: #### C DP, CP, LIP #### [address] [place], [facility]83 [employer]: Jennifer Freire MD MCH (RBC) [Entitic mass] 22.3 pg Low 25.2-33.5 [facility] Comment on above: Performed By: #### C DP, CP, LIP #### [address] [place], [place] [address] [employer]: Jennifer Freire MD MCHC (RBC) [Mass/Vol] 30.2 g/dL Normal 28.4-34.8 [facility] Comment on above: Performed By: #### C DP, CP, LIP #### [address] [place] [place] [address] [employer]: Jennifer Freire MD MCV (RBC) [Entitic vol] 73.9 fL Low 82.6-102.9 [facility] Comment on above: Performed By: #### C DP, CP, LIP #### [address] [place]ier[place], [facility]12 ( [employer]: Jennifer Freire MD Monocytes (Bld) [#/Vol] 0.48 10*3/uL Normal 0.10-1.20 [facility] Comment on above: Performed By: #### C DP, CP, LIP #### [address] [place], [facility]83 [employer]: Jennifer Freire MD Monocytes/100 WBC (Bld) 7 % Normal 3-12 M [facility] Comment on above: Performed By: #### C DP, CP, LIP #### [address] [place]ier[place], [facility]83 [employer]: Jennifer Freire MD Neutrophil (Seg) 41 % Normal 36-65 [facility] Comment on above: Performed By: #### C DP, CP, LIP #### [address] [place], [place] [id number] [employer]: Jennifer Freire MD NRBC Automated 0.0 per 100 WBC Normal 0.0 [facility] Comment on above: Performed By: #### C DP, CP, LIP #### [address] [place], [place] [id number] [employer]: Jennifer Freire MD Platelet mean volume (Bld) [Entitic vol] 9.3 fL Normal 8.1-13.5 [facility] Comment on above: Performed By: #### C DP, CP, LIP #### [address] [place], [place] [id number] [employer]: Jennifer Freire MD Platelets (Bld) [#/Vol] 533 10*3/uL High 138-453 [facility] Comment on above: Performed By: #### C DP CP, LIP #### [address] [place], [place] [id number] [employer]: Jennifer Freire MD RBC (Bld) [#/Vol] 4.75 10*6/uL Normal 3.95-5.11 [facility] Comment on above: Performed By: #### C DP, CP, LIP #### [address] [place], [place] [phone] [employer]: Jennifer Freire MD WBC (Bld) [#/Vol] 6.5 10*3/uL Normal 3.5-11.3 [facility] Comment on above: Performed By: #### C DP CP, LIP #### [address] [place] [address] [employer]: Jennifer Freire MD CHEMISTRYOrdered By: SYSTEM SYSTEM [...] [Mass/Vol] 4.2 g/dL 3.5 - 5.2 g/dL [facility] Albumin/Globulin [Mass ratio] 1.3 {ratio} 1.0 - 2.5 [facility] ALP [Catalytic activity/Vol] 77 U/L 35 - 104 U/L [facility] ALT [Catalytic activity/Vol] 19 U/L 10 - 35 U/L [facility] Anion gap [Moles/Vol] 11 mmol/L 9 - 16 mmol/L [facility] AST [Catalytic activity/Vol] 24 U/L 10 - 35 U/L [facility] Bilirubin [Mass/Vol] mg/dL 0.00 - 1.20 mg/dL [facility] Calcium [Mass/Vol] 9.4 mg/dL 8.6 - 10. 4 mg/dL [facility] Chloride [Moles/Vol] 105 mmol/L 98 - 10 7 mmol/L [facility] CO2 [Moles/Vol] 24 mmol/L 20 - 31 mmol/L [facility] Creatinine [Mass/Vol] 0.7 mg/dL 0.50 - 0.90 mg/dL [facility] Christen Manrique Rate - PINF [facility] Comment on above: These results are [...] [Mass/Vol] 79 mg/dL 74 - 99 mg/dL [facility] Potassium [Moles/Vol] 3.7 mmol/L 3.7 - 5.3 mmol/L [facility] Comment on above: Specimen hemolysis h as exceeded the interference as defined by Ji. Value may be falsely increased. Suggest recollection if clinically indicated. Protein [Mass/Vol] 7.4 g/dL 6.6 - 8.7 g/dL [facility] Sodium [Moles/Vol] 140 mmol/L 136 - 145 mmol/L [facility] Urea nitrogen [Mass/Vol] 8 mg/dL 6 - 20 mg/dL [facility] Urea nitrogen/Creatinine [Mass ratio] 11 mg/mg 9 - 20 [facility] Comp Metabolic Profon 2024 Albumin [Mass/Vol] 4.2 g/dL Normal 3.5-5.2 [facility] Comment on above: Performed By: #### C DP, CP, LIP #### [facility] [address] [place] [address] [employer]: Jennifer Freire MD Albumin/Glob Ratio 1.3 Normal 1.0-2.5 [facility] Comment on above: Performed By: #### C DP, CP, LIP #### [facility] [address] [place], [place] [phone] [employer]: Jennifer Freire MD Alkaline Phos 77 U/L Normal 35-104 [facility] Comment on above: Performed By: #### C DP, CP, LIP #### [facility] [address] [place], [place] [phone] [employer]: Jennifer Freire MD ALT [Catalytic activity/Vol] 19 U/L Normal 10-35 [facility] Comment on above: Performed By: #### C DP, CP, LIP #### [facility] [address] [place] [address] [employer]: Jennifer Freire MD Anion gap [Moles/Vol] 11 mmol/L Normal 9-16 [facility] Comment on above: Performed By: #### C DP, CP, LIP #### [facility] [address] [place] [address] [employer]: Jennifer Freire MD AST [Catalytic activity/Vol] 24 U/L Normal 10-35 [facility] Comment on above: Performed By: #### C DP, CP, LIP #### [facility] [address] [place], [place] [phone] [employer]: Jennifer Freire MD Bilirubin [Mass/Vol] mg/dL Normal 0.00-1.20 [facility] Comment on above: Performed By: #### C DP, CP, LIP #### [facility] [address] [place], [place] [phone] [employer]: Jennifer Freire MD BUN/CRE Ratio 11 Normal 9-20 [facility] Comment on above: Performed By: #### C DP, CP, LIP #### [facility] [address] [place], [place] [phone] [employer]: Jennifer Freire MD Calcium [Mass/Vol] 9.4 mg/dL Normal 8.6-10.4 [facility] Comment on above: Performed By: #### C DP, CP, LIP #### [facility] [address] [place] [address] Dr. [place], [place] 1011683 [employer]: Jennifer Freire MD Chloride [Moles/Vol] 105 mmol/L Normal 98-107 [facility] Comment on above: Performed By: #### C DP, CP, LIP #### [facility] [address] [place] [address] Dr. [place]ier[place], [place] [phone] [employer]: Jennifer Freire MD CO2 [Moles/Vol] 24 mmol/L Normal 20-31 [facility] Comment on above: Performed By: #### C DP, CP, LIP #### [facility] [address] [place] [address] [employer]: Jennifer Freire MD Creatinine [Mass/Vol] 0.7 mg/dL Normal 0.50-0.90 [facility] Comment on above: Performed By: #### C DP, CP, LIP #### [facility] [address] [place] [address] [employer]: Jennifer Freire MD GFR/1.73 sq M.predicted among non-blacks MDRD (S/P/Bld) [Vol rate/Area] mL/min/{1.73_m2} Normal >60 [facility] Comment on above: Result Comment: [...] renal tubular secretion. Performed By: #### C CANDICE PINTO, LIP #### [address] [place] [address] [employer]: Jennifer Freire MD Glucose [Mass/Vol] 79 mg/dL Normal 74-99 [facility] Comment on above: Performed By: #### C MILLIE CP, LIP #### [facility] [address] [place] [address] [place] [address] [employer]: Jennifer Freire MD Potassium [Moles/Vol] 3.7 mmol/L Normal 3.7-5.3 [facility] Comment on above: Result Comment: Spec imen hemolysis has exceeded the interference as defined by Ji. Value may be falsely increased. Suggest recollection if clinically indicated. Performed By: #### C CANDICE PINTO, LIP #### [facility] [address] [place] [address] [place] [address] [employer]: Jennifer Freire MD Protein [Mass/Vol] 7.4 g/dL Normal 6.6-8.7 [facility] Comment on above: Performed By: #### C MILLIE CP, LIP #### [address] [place] [address] [employer]: Jennifer Freire MD Sodium [Moles/Vol] 140 mmol/L Normal 136-145 [facility] Comment on above: Performed By: #### C DP, CP, LIP #### [facility] [address] [place] [address] [employer]: Jennifer Freire MD Urea nitrogen [Mass/Vol] 8 mg/dL Normal 6-20 [facility] Comment on above: Performed By: #### C DP, CP, LIP #### [facility] [address] [place] [address] [employer]: Jennifer Freire MD Extra Blueon 06-27-2024 Tube Collected Plasma Yes Invalid Interpretation Code [facility] Comment on above: Performed By: #### 1 [id number] #### [facility] [address] [place] [address] HEMATOLOGYOrdered By: SYSTEM SYSTEM on 06-27-2024 Basophils/100 [...] 06-27-2024 Albumin [Mass/Vol] 5.0 g/dL Normal 3.3-5.0 [facility] Comment on above: Performed By: #### 2 [id number] #### [facility] [address] [place] [address] Albumin/Globulin (S) [Mass conc ratio] 1.4 Normal 1.1-2.2 [facility] Comment on above: Performed By: #### 2 [id number] #### [facility] [address] [place] [address] ALP [Catalytic activity/Vol] 80 Int._Unit/L Normal 21-98 [facility] Comment on above: Performed By: #### 2 [id number] #### [facility] [address] [place] [address] ALT No additional P-5'-P [Catalytic activity/Vol] 15 Int._Unit/L Normal 6-46 [facility] Comment on above: Performed By: #### 2 [id number] #### [facility] [address] [place] [address] AST [Catalytic activity/Vol] 18 Int._Unit/L Normal 5-43 [facility] Comment on above: Performed By: #### 2 [id number] #### [facility] [address] [place] [address] Bilirubin [Mass/Vol] 0.6 mg/dL Normal 0.0-1.1 [facility] Comment on above: Performed By: #### 2 [id number] #### [facility] [address] [place] [address] Bilirubin.direct [Mass/Vol] 0.0 mg/dL Normal 0.0-0.4 [facility] Comment on above: Performed By: #### 2 [id number] #### [facility] [address] [place] [address] Bilirubin.indirect [Mass or moles/Vol] 0.6 mg/dL Normal 0.1-0.9 [facility] Comment on above: Performed By: #### 2 [id number] #### [facility] [address] [place] [address] Globulin (S) [Mass/Vol] 3.6 g/dL Normal 1.4-4.0 F [facility] Comment on above: Performed By: #### 2 [id number] #### [facility] [address] [place] [address] Protein [Mass/Vol] 8.6 g/dL High 6.0-7.8 [facility] Comment on above: Performed By: #### 2 [id number] #### [facility] [address] [place] [address] Lactic Acidon 06-27-2024 Lactate (BldV) [Moles/Vol] 1.7 mmol/L 0.5 - 2.2 mmol/L [facility] Lactate [Moles/Vol] 1.7 mmol/L Normal 0.5-2.2 [facility] Comment on above: Performed By: #### L ACTIC #### [facility] [address] [place] [address] [employer]: Jennifer Freire MD Lipaseon 06-27-2024 Lipase [Catalytic activity/Vol] 55 U/L 13 - 60 U/L [facility] Lipase [Catalytic activity/Vol] 55 U/L Normal 13-60 [facility] Comment on above: Performed By: #### C DP, CP, LIP #### [facility] [address] [place] [address] [employer]: Jennifer Freire MD Lipase Levelon 06-27-2024 Lipase [Catalytic activity/Vol] 24 U/L Normal 13-58 [facility] Comment on above: Performed By: #### 2 [id number] #### [facility] [address] [place] [address] Microscopic Urinalysison Bacteria LM Ql (Urine sed) 2+ Abnormal None [facility] Character (U) MICROSCOPIC PERFORME D ON UNSPUN URINE Abnormal NOT REQ. [facility] Character (U) Quantity not sufficient. Abnormal NOT REQ. [facility] Epithelial cells LM.HPF (Urine sed) [#/Area] 2 TO 5 [facility] Interpretation and review of laboratory results Abnormal [facility] Mucus Ql (Urine sed) 2+ Abnormal None [facility] RBC LM.HPF (Urine sed) [#/Area] 0 TO 2 [facility] WBC LM.HPF (Urine sed) [#/Area] 0 TO 2 [facility] No Panel Informationon 06-27 [facility] UA w/Reflex Cultureon 2024 Bilirubin, SemiQt,Ur Negative Normal NEG [facility] Comment on above: Performed By: #### U MICAO, UAX #### [facility] [address] [place], [place] [id number] [employer]: Jennifer Freire MD Blood, Urine Negative Normal NEG [facility] Comment on above: Performed By: #### U MICAO, UAX #### [facility] [address] [place], [place] [phone] [employer]: Jennifer Freire MD Clarity (U) Clear Normal CLEAR [facility] Comment on above: Performed By: #### U MICAO, UAX #### [facility] [address] [place], [place] [phone] [employer]: Jennifer Freire MD Color (U) Yellow Normal YEL [facility] Comment on above: Performed By: #### U MICAO, UAX #### [facility] [address] [place] [address] [employer]: Jennifer Freire MD Glucose Ql (U) Negative Normal NEG [facility] Comment on above: Performed By: #### U MICAO, UAX #### [facility] [address] [place] [address] [employer]: Jennifer Freire MD Ketones Ql (U) Negative Normal NEG [facility] in Hospital Comment on above: Performed By: #### U MICAO, UAX #### [facility] [address] [place], [place] [id number] [employer]: Jennifer Freire MD Leukocyte esterase Test strip Ql (U) TRACE Abnormal NEG [facility] Comment on above: Performed By: #### U MICAO, UAX #### [facility] [address] [place] [address] [employer]: Jennifer Freire MD Nitrite,Ur Negative Normal NEG [facility] Comment on above: Performed By: #### U MICAO, UAX #### [facility] [address] [place] [address] Dr. [place], [place] [id number] [employer]: Jennifer Freire MD PH,Ur 6.0 Normal 5.0-9.0 [facility] Comment on above: Performed By: #### U MICAO, UAX #### [facility] [address] [place] [address] [place] [id number] [employer]: Jennifer Freire MD Protein Ql (U) Negative Normal NEG [facility] Comment on above: Performed By: #### U MICAO, UAX #### [address] [place] [address]83 [employer]: Jennifer Freire MD Spec. [place],Ur >1.030 High 1.010-1.020 [facility] Comment on above: Performed By: #### U MICAO, UAX #### [address] [place] [address]83 [employer]: Jennifer Freire MD Urobilinogen,Ur Normal Normal 0.0-1.0 [facility] Comment on above: Performed By: #### U ARABELLAO, UAX #### [address] [place], [facility] [employer]: Jennifer Freire MD Urinalysis with Reflex to Cu ltureon 06-27-2024 Bilirubin Ql (U) Negative NEGATIVE [facility] Clarity (U) Clear [facility] Color (U) Yellow Yellow [facility] Glucose Test strip (U) [Mass/Vol] Negative NEGATIVE mg/dL Bon [facility] Hemoglobin Auto test strip Ql (U) Negative NEGATIVE [facility] Interpretation and review of laboratory results Abnormal Bon [facility] Ketones (U) [Mass/Vol] Negative NEGAT NAYE mg/dL [facility] Leukocyte esterase Test strip Ql (U) TRACE Abnormal NEGATIVE [facility] Nitrite Ql (U) Negative NEGATIVE [facility] pH (U) 6.0 [pH] 5.0 - 9.0 [facility] Protein (U) [Mass/Vol] Negative NEGAT NAYE mg/dL [facility] Specific gravity (U) [Rel density] High 1.010 - 1.020 [facility] Urobilinogen Qn (U) Normal 0.0 - 1. 0 EU/dL [facility] Urinalysis,Microon 5 Bacteria 2+ Abnormal [facility] Comment on above: Performed By: #### U MICAO, UAX #### [facility] [address] [place], [place] [id number] [employer]: Jennifer Freire MD Epithelial cells LM Ql (Urine sed) 2 TO 5 Normal 0-25 [facility] Comment on above: Performed By: #### U MICAO, UAX #### [facility] [address] [place] [address] [employer]: Jennifer Freire MD Mucus Strands 2+ Abnormal [facility] Comment on above: Performed By: #### U MICAO, UAX #### [facility] [address] [place] [address] [employer]: Jennifer Freire MD Other Observations MICROSCOPIC PERFORME D ON UNSPUN URINE Abnormal NREQ [facility] Comment on above: Result Comment: Red tity not sufficient. Performed By: #### U MICAO, UAX #### [facility] [address] [place] [address] [employer]: Jennifer Freire MD Urine RBC's 0 TO 2 Normal 0-2 [facility] Comment on above: Performed By: #### U MICAO, UAX #### [facility] [address] [place] [address] [employer]: Jennifer Freire MD Urine WBC's 0 TO 2 Normal 0-5 [facility] Comment on above: Performed By: #### U ASHLEY SALCEDO #### [facility] [address] [place], [place] [id number] [employer]: Jennifer Freire MD eGFRon 06-27-2024 eGFR 84 mL/min/1.73 m2 Normal >=59 [facility] Comment on above: Performed By: #### 1 [id number] #### [facility] [address] [place] [address] Coding Summaryon 06-26-2024 Coding Summary [employer]Base 64 VjgsrlghIVb4tRx+PGhlYW Q+IB1THUDiB62ulVTvxS5b O4ZZKAwXSrysPADAVWvZDu JrdyFhIK2kuOAnOXYx IC8+GA8kKRUaKdvthEPnk5 V1rVP8W77vco8cKRiooMA2 QGWiYwWtyetfu2epfWk0NK cuNmluOyBt VLYwvK54WLA4nM90Pr96qS JfoAHqh6syxYz9MvEaHUVe GFW3vBuuRWzva7SnKRCbA9 6wcOWtg0E3 ILVsaIsdxGZyXfNdgAW9oM 6aHIjoubwhq4loqvsbMwl2 rd97nVWvr1B4tVJ3F0Qoog Z2ZHCgyDMa WbqlxSUDuC8rmrijc1vvex btTjGtFNIqZLw1TEk0NQGx pAwyFmWcEA72JDH5NOCqew QsB0LgYUQm dQomHpC8h2J2Ay7TN5XXIc iiO3TYMCFTMObrpBT+PC90 eh86W7ZaAvsgPru1CNSuWF X5qMT4fL5t QJIuGAhsx2X0kKO4L4Qble Duts2te4tuCGNdCAjoK42n tSXqs7I8SOLjzDP1LXCofK ndLjWfmE02 Oyc+IDZtwUkjf2VtRxbld2 yvm8acyZd4HbvkFWXdgrPc aEzbQQH0b4GbZn9fARKutR Y8fND4hS8w XnQiHmY4SXkoB263MfOpdF LfQastO68zB6RqdPU+PHRy Qij1KANadBfbYL9xE2ZqRI RpbmctbGVm jEfuGS1eLYYdlldaZJGixR 3kQXZnN7h9TuVeLtR7NDnf M4FsBZYoxrpuHd03vV1gQu BoNxF8DHpr W3QxykP6RWHuuQTuPIpdFJ V2J85cd0W9HUQqJABqFJK7 bJD7oY0odNusrkfinAGysP sgdmVydGlj YVijKJbqU837QDGkySkkBj NvZGluZyBEYXRlOiAgMDEv MTQvMjAyNTwvdGQ+PHRkIH X3dOurKHWx dKSdELmqYk2hoEypiVsqCE 0hKFBtkitvWEEtdW8pCOBh nBXjtMqnPF2hWEUjndbgd2 32CrMbESA3 LFVxfXJwO0UvlA5nTdRaZW DbQCPgF0LcrLSeUJrwW311 XLjyCgT4DIUfhwNpF0JsAD FsaWduOiB0 a8F9Wy2Dq4PsyjjsJ2XacF ZnUhKjVrgxAYi3T9CcZdzx dHI+PU58OOWdGD86XJa0RH F2lAfcQXer UVWwY4EbsY5uPsVrKXBzOJ RkOyc+PHRhYmxlIHdpZHRo RFjcXWCkBpIztBvfXK2fBw 9yZGVyLWNv gKxfvEUgFyCjp9xoGXBpPR rdEI1piFslY7UmwME9FACb p3k7Kn27R66eU8BiuLR+PG LuwCP6iZC8 kR8hLxHoRfO9WWdeM300Gz DfgVAyLvcws5bkm0fkzIu5 CwZ7EPFcspUbkGgsYIT8a1 XiQk41N66w IHdpZHRoPSIxNSUiIHZhbG lmra9ouX3bWx4+PGNvbCB3 oMJ7gG4gQpCgRjX3WWviM8 49InRvcCIv Rdfxz1ybb4vlwJg2RdQuTK XmgpCsdRinVML8v2OdDq37 V1NciUyfq1UxWwr8wz69jE Sgw6S5tTC2 G6DnTKGymnjwcPAjlRvqJM 5wLQTahszdIGUrmN9iKYMh N5e5YaVwJhE7ANqfI2Njdo W8DOVrlMOh BKIrxFJAxN3jlvdqw2ikhg mxAyEgHXYeCFq4PFs4PFVe gMloUbTcXOP3JbZ3WHH4vA OmfW6cgMuu yqwklF5lTzc+IAT4dWVmdN YKYU6jJmbvoIW+PHRkIHN0 vSahSHcuMVLotJ0vSTOuL9 s5ExRoWvZ4 LKtkS3DaxcQ8ICZdkMPsQB NlkIVLnE0alecfd1yrefzt UpRmKKCoUGp6EIc1UMTfxS duOiBsZWZ0 WjG3YXB6aUPsqI1abRurhg ckqY6vGzv+QmlydGggRGF0 KKn0E4CdNys0SCSuzUhuJO 0ncGFkZGlu Dz0jpLrcuAyuZG3sCZRhsi igy550NfNes6zhOPSkySFf WJqiLMB3Q44ou0N4RPFuNT JkANQ6qXS6 yH4vkAqgcgsioGJbbMuuxj NhpCamAPniDNxzQ757SXJt aLwvPuViVOs2V7RoAim4XU IyeGyiFQ8s uOXvMDciCs1btHlxvSzkGW 2yUIOgonnxs604TxBnl4ic ASXyhATcRSrlFOQ7O66rr5 O2XTDtUGSa BMO5vXA6cS7alZxstrtodS VmdDsgdmVydGljYWwtYWxp Y607OIZctOudFdOvqPz5X5 LdPpd3LRAf qTimBX4nfJAxFUtmXg2hnA fmySrrRP2pWNWjasurx074 FhGjc8aiALBgqADfRQrvJW D7O85to8W3 ZVKoTMDoWMI1mEO4wU2utL lnbjogbGVmdDsgdmVydGlj LPpkREejR999UQKlpVnqXi BhdGllbnQg UUrtFEc1G8MiNiimyRV+PC 71OJFaAT30uHPkzHBdi2da vFb9DuCiDWHgNMN0dXiqBI kmp9OkOOSb C29cxEWvn1I8YLUuyTpprN PpLzQgrOP4eA0iTYzhfuez c8hgzzetQjhff8fola51mE 92J20qVEop ZHRoPSIzMCUiIHZhbGlnbj 7hvR9cYi8+RYGruLR1uJM7 wK6oXFAbRyA1UEqxA503Kt RvcCIvPjxj t6tni1pjfNx1HuF3UULkcc UmrOrhWQX9z2LjJo43Y61h IHdpZHRoPSIyMCUiIHZhbG mscm7fnL3q Ii8+WWQvqPA4xOS1bC6gWt UpWoJ3BRkvJ722KwGgtBSs TklfQ48aV1UsrNK+PHRyPj b1HHPlqYfc HB3tzKRkXUafVu9gJQD9Bg IcRxDpNGtfD7OfBDNewbdo whpmuJW0VYEqHYZzsJ52Hh 9udDogMTBw gGXEcH6xmtdye9ylfcsmDi LkFANnDLg2LYu0GMXaqFak UxLsHAJ7QbF6SHR4iCBvaD 1hbGlnbjog iB9nK9WcDBDmxbjmQf86oA 3uWmOrNxF0EZvtHyd+SE9X QVJELCBTVEFDSUUgTEVFPC 33OC37sBEz a9C1eTI0F8WlDREsewtwoz lhcOL4VDCrGJCwrI81eTAw UOkqGo0go3M0t607WNPeGN UzqF37Lr5x oInnPGOaxZRLtH9tinopr9 jsjckzWpIoKNGgJZl6SOs2 WLImpHhpBkKvAUS7VdO1SC W5lWEjuX7b gVqkbqifoA3kGti+MDcvMz LqWDb6AjdggEA+PHRkIHN0 bQnwAFkfVFPaqP8dTAGvI8 m7ArEpEqJ1 PNrlZ2IwYZKfvqrzAe91dV 6xGmVfTkG7BFwnZ7TvjtH6 BTRctOFqNLapLTF9T66fb8 A4XMPcFRSv QDG2fHW8yH3bhWgaeoxklD VmdDsgdmVydGljYWwtYWxp U288VWHweKhrNeJ4RSmmZY EjPP56MA83 yJGor0D3dFS5P0FdTXGtxp ynclihzIE7LULeGMUunV74 jGRfNHzbSl2sz5H6i423PV PbWMTqyM35 Ap2mhLctZRNzxRDWvQ1auv qix7vrtwkiKzHoBHLpZMy0 CGm0UUGweJayAoDyFDU3Ge T8VXT1iQOr pK8fpYnvldqvwH0vNsg+Rk ZNCMeFHO93GV73vTJtb7Q5 qLG1I1KcCIMxecrcrqehzI F2NUPeJJUx hI09mBDwIZdiBe0xf8W3m2 91JYAeMVSelT74Lq5rzRqu WKDuqFXOpS3bkryxx2kivf ogIzAwMDAw DFp6TGf2GJQktWlnAdSsRA T7EdK1QDL0fHCcgD7nmYge pobklM4xTge+OC7fawqdne O8WA43DD87 L9MbAkxpjKPodUH+PHRhYm xlIHdpZHRoPScxMDAlJyBz vZpbQX2aIv2pOXDeOTLivY xhcHNlOiBj y6rgTTJuALygSK8mrMmpS3 TypNX0LWRca5o8Tz08H37e T2BdnWJ+ZFKfvMF7nZB0kB 8jMmVtCqA5 BHjqR938EtYflPItJxaiq0 ztz8xkoGr3XnLqWRBeudNc lFntOAL8c9VsMi57B98cTK dpZHRoPSIy DVUjOSSazXkiqq9uzC5xAv 8+RSZufJE7oQZ5bM6kOvDd ObS4GGcqQ079YaDxbXSyMm qmV68dJ6Hc dXA+XWVbNix6UEIziVyuPT 2ccXHoVBtvGu4qSDS6RnEb NhKpORpuB1OqNDHpiyakzp mopAZ8QBFx DOFqrD75Qt7upOpbPt3mTB ZhGSF4WCSjsKVlA0DjyR0f IyLbVWCiQFKeA0JjzQAqYL uqU019HCas HoO6NWTuhjIoU7JsPHHkaM rlWhP3j4J3Aw8OaWqdlNNf SQ8cYxGhDTp8D2AiYig5QI XzgYxdBF1f iZZeYUgyYz5afEmdqOpsQQ 5qMWCwoxqgn349MxPlb2hx FJMfcRBzMOfoAON4U53ji4 E1MFFiVRVh LVX4fHE7lA0ukVnsciityT VmdDsgdmVydGljYWwtYWxp P041GRAkwGakBkBHBlz4L3 KoRsh6QOUu iVklYH8cgLImZGypPr4jsQ jzcEkvIB6tVZLndlhbp776 BiPjf0nuMCKfnPTxFRckVJ G1D07kp2S7 FVHwHVFtODR4pIM2zA5bdD lnbjogbGVmdDsgdmVydGlj NMzaCZrjZ029BACsyYghIz 0MWts6O9Jv Zyp4UTMivIxkCA5swGLmZX wyDp1qoHbmmZirCM7bZYVk dtjej440VdGfe4gsSFHnyX QgVGltZXM7 D85mr8V8GSEfUZJmBAM9sV V7iM9daNvtblgnlEZogKet gcRolOxqSProLGxlE086PR RvcDsnPlBh eWVyOjwvdGQ+CL90uv87J6 VlPirjRfj0TJXbXEQ4uTB9 fI7dQAEpTAgwk4E9vLN3S9 ThppEygg2p b2x (more content not included)... Normal [facility] CRPon 06-25-2024 CRP [Mass/Vol] 0.5 mg/dL Normal <=1.9 [facility] Comment on above: Performed By: #### 2 [id number] #### [facility] [address] [place] [address] CT Abdomen/Pelvis w/o Contra ston 06-25-2024 CT [...] Oral contrast amount in ml's: 0 Normal [facility] ED Clinical Summaryon 2024 ED Clinical Summary ED Clinical Summary [place] [id number] ED Clinical Summary Person Information Name: [facility] Age: 39 Years : 1985 Sex: Female Language: Citizen Of [place] PCP: NONE, XXXX Marital Status: MRN: [id number] [...] 06/25/2024 02:50:14 ADDRESS: [address] [place] [id number] PHYS DOC NOTES: MEDICAL INFORMATION: Prescriptions Given: New Medications [facility]/pharmacy #[id number], [address], [place] [id number], [phone] acetaminophen-oxycodon e (Percocet 5 mg-325 mg oral [...] Adult Follow up: With: Address: When: Ernie CHIRINOS [address] [place] [address] Business (1) In 3 days 06/28/2024 DIAGNOSIS: Abdominal pain, acute Normal [facility] ED Note-Physicianon 06-25-19 ED Note-Physician ED Note-Physician [...] and Complexity of Problems Differential Diagnosis: [] [facility] Data External documents reviewed: N/A My [...] primary care physician as well as her [employer] for the next available follow-up as an outpatient. Discussed return precautions. Patient was discharged in stable condition. Shared decision making: As above Code status: N/A Assessment/Plan Abdominal pain, acute (R10.9: Unspecified abdominal pain) Ordered: acetaminophen-oxycodon e, 1 tab(s), Oral, q8hr for 3 day(s), 9 tab(s), Refill(s) 0, [facility]/pharmacy #[id number], 165, cm, 06/24/24 19:33:00 EST, Height/Length [...] CHIRINOS In 3 days 06/28/2024 EST [address] [place] [phone] Business (1) Additional Instructions: Patient Education Abdominal Pain, Adult Problem List/Past Medical History Ongoing No chronic problems Historical Endometriosis Ovarian cyst Procedure/Surgical History Hysterectomy. Medications Inpatient HYDROmorphone 1 mg/mL injec (more content not included)... Normal [facility] Comment on above: Result Comment: Elec tronically Signed By: Ritesh Heath DO\.br\Date and Time Signed: 06/25/24 02:44 EST ED Patient Summaryon 025 ED Patient Summary ED Patient Summary [address] [address] Patient Discharge Instructions Person Information Name: ANTONIA NOYOLA Age: 39 Years Arrival Date: 06/24/2024 19:23:55 Discharge Diagnosis: Abdominal pain, acute Primary Care Physician: NONE, XXXX Provider Information Primary Provider: Ritesh Heath DO Advanced Clinical Informatics Manager:None The exam and treatment you received in the Emergency Department were for an urgent problem and are not intended as complete care. It is important that you follow up with a doctor, nurse practitioner, or physician???s optometric assistant for ongoing care. If your symptoms become worse or you do not improve as expected and you are unable to reach your usual health care provider, you should return to the Emergency Department. We are available 24 hours a day. ANTONIA NOYOLA has been given the following list of patient education materials, prescriptions and follow-up instructions: Follow-up Instructions: With: Address: When: Ernie [place] [address] Business (1) In 3 days 06/28/2024 In the event that this physician does not participate in your insurance network, please consult with your insurance company to find a nearby participating provider. Patient Education Materials: Abdominal Pain, Adult A MESSAGE TO ALL PATIENTS REGARDING OPIOIDS PRESCRIPTION OPIOIDS: WHAT YOU NEED TO KNOW Prescription opioids can be used to help relieve tnobyrek-og-xkhsbj pain and are often prescribed following a [...] be struggling with addiction, tell your health infant childcare provider and ask for guidance or call S (more content not included)... Normal [facility] Sed Rate Automatedon 025 ESR (Bld) [Velocity] 35 mm/h High 0-34 Fish er [facility] Comment on above: Performed By: #### 1 [id number] #### [facility] [address] [place] [address] BMPon 06-24-2024 Anion gap [Moles/Vol] 13 mmol/L Normal 6-16 Fis her [facility] Comment on above: Performed By: #### 2 [id number] #### [facility] [address] [place] [address] Calcium [Mass/Vol] 9.9 mg/dL Normal 8.9-11.1 [facility] Comment on above: Performed By: #### 2 [id number] #### [facility] [address] [place] [address] Chloride [Moles/Vol] 107 mmol/L Normal 101-111 [facility] Comment on above: Performed By: #### 2 [id number] #### [facility] [address] [place] [address] CO2 [Moles/Vol] 23 mmol/L Normal 21-31 [facility] Comment on above: Performed By: #### 2 [id number] #### [facility] [address] [place] [address] Creatinine [Mass/Vol] 0.7 mg/dL Normal 0.5-1.3 [facility] Comment on above: Performed By: #### 2 [id number] #### [facility] [address] [place] [address] Glucose [Mass/Vol] 116 mg/dL Normal 55-199 [facility] Comment on above: Performed By: #### 2 [id number] #### [facility] [address] [place] [address] Potassium [Moles/Vol] 3.9 mmol/L Normal 3.5-5.3 [facility] Comment on above: Performed By: #### 2 [id number] #### [facility] [address] [place] [address] Sodium [Moles/Vol] 139 mmol/L Normal 135-145 [facility] Comment on above: Performed By: #### 2 [id number] #### [facility] [address] [place] [address] Urea nitrogen [Mass/Vol] 6 mg/dL Normal 5-21 [facility] Comment on above: Performed By: #### 2 [id number] #### [facility] [address] [place] [address] Urea nitrogen/Creatinine [Mass ratio] 9 No Units Low 10-20 [facility] Comment on above: Performed By: #### 2 [id number] #### [facility] [address] [place] [address] CBC w/ Auto Diffon 5 Basophils/100 WBC (Bld) 1.2 % Normal 0.0-2.0 [facility] Comment on above: Performed By: #### 2 [id number] #### [facility] [address] [place] [address] Basophils/Leukocytes Auto (Bld) [Pure # fraction] 0.0 E9/L Normal 0.0-0.2 [facility] Comment on above: Performed By: #### 2 [id number] #### [facility] [address] [place] [address] Eosinophils (Bld) [#/Vol] 0.0 E9/L Normal 0.0-0.5 [facility] Comment on above: Performed By: #### 2 [id number] #### [facility] [address] [place] [address] Eosinophils/100 WBC (Bld) 0.4 % Normal 0.0-8.0 [facility] Comment on above: Performed By: #### 2 [id number] #### [facility] [address] [place] [address] Erythrocyte distribution width (RBC) [Ratio] 19.4 % High 10.9-14.2 [facility] Comment on above: Performed By: #### 2 [id number] #### [facility] [address] [place] [address] Hematocrit (Bld) [Volume fraction] 37.3 % Normal 34.0-46.0 [facility] Comment on above: Performed By: #### 2 [id number] #### [facility] [address] [place] [address] Hemoglobin (Bld) [Mass/Vol] 11.8 g/dL Low 12.0-16.0 [facility] Comment on above: Performed By: #### 2 [id number] #### [facility] [address] [place] [address] Hypochromia Auto Ql (Bld) PRESENT Invalid Interpretation Code [facility] Comment on above: Performed By: #### 2 [id number] #### [facility] [address] [place] [address] Lymphocytes (Bld) [#/Vol] 1.3 E9/L Normal 1.0-4.0 [facility] Comment on above: Performed By: #### 2 [id number] #### [facility] [address] [place] [address] Lymphocytes/100 WBC (Bld) 30.4 % Normal 14.0-50.0 [facility] Comment on above: Performed By: #### 2 [id number] #### [facility] [address] [place] [address] MCH (RBC) [Entitic mass] 22.8 pg Low 27.0-34.0 [facility] Comment on above: Performed By: #### 2 [id number] #### [facility] [address] [place] [address] MCHC (RBC) [Mass/Vol] 31.6 g/dL Normal 31.4-36.0 [facility] Comment on above: Performed By: #### 2 [id number] #### [facility] [address] [place] [address] MCV (RBC) [Entitic vol] 72.2 fL Low 80.0-100.0 F [facility] Comment on above: Performed By: #### 2 [id number] #### [facility] [address] [place] [address] Microcytes Ql (Bld) PRESENT Invalid Interpretation Code [facility] Comment on above: Performed By: #### 2 [id number] #### [facility] [address] [place] [address] Monocytes (Bld) [#/Vol] 0.2 E9/L Normal 0.2-1.0 F [facility] Comment on above: Performed By: #### 2 [id number] #### [facility] [address] [place] [address] Neutrophils (Bld) [#/Vol] 2.6 E9/L Normal 2.0-7.5 [facility] Comment on above: Performed By: #### 2 [id number] #### [facility] [address] [place] [address] Neutrophils/100 WBC (Bld) 62.2 % Normal 36.0-75.0 [facility] Comment on above: Performed By: #### 2 [id number] #### [facility] [address] [place] [address] Platelet mean volume (Bld) [Entitic vol] 7.6 fL Normal 6.4-10.8 [facility] Comment on above: Performed By: #### 2 [id number] #### [facility] [address] [place] [address] Platelets (Bld) [#/Vol] 563.0 E9/L High 150.0-500.0 [facility] Comment on above: Performed By: #### 2 [id number] #### [facility] [address] [place] [address] RBC (Bld) [#/Vol] 5.2 E12/L Normal 4.3-5.9 [facility] Comment on above: Performed By: #### 2 [id number] #### [facility] [address] [place] [address] RBC size Nom (Bld) SEE MORPHOLOGY Invalid Interpretation Code [facility] Comment on above: Performed By: #### 2 [id number] #### [facility] [address] [place] [address] WBC corrected for nucl RBC Auto (Bld) [#/Vol] 4.2 E9/L Normal 4.0-11.0 [facility] Comment on above: Performed By: #### 2 [id number] #### [facility] [address] [place] [address] CHEMISTRYOrdered By: SYSTEM SYSTEM on 06-24-2024 Albumin [...] 35 mm/h High 0 - 34 mm/hr [facility] HemeAutoSS Hep Func Panelon 06-24-2024 Albumin [Mass/Vol] 4.6 g/dL Normal 3.3-5.0 [facility] Comment on above: Performed By: #### 2 [id number] #### [facility] [address] [place] [address] Albumin/Globulin (S) [Mass conc ratio] 1.1 Normal 1.1-2.2 [facility] Comment on above: Performed By: #### 2 [id number] #### [facility] [address] [place] [address] ALP [Catalytic activity/Vol] 79 Int._Unit/L Normal 21-98 [facility] Comment on above: Performed By: #### 2 [id number] #### [facility] [address] [place] [address] ALT No additional P-5'-P [Catalytic activity/Vol] 17 Int._Unit/L Normal 6-46 [facility] Comment on above: Performed By: #### 2 [id number] #### [facility] [address] [place] [address] AST [Catalytic activity/Vol] 21 Int._Unit/L Normal 5-43 [facility] Comment on above: Performed By: #### 2 [id number] #### [facility] [address] [place] [address] Bilirubin [Mass/Vol] 0.3 mg/dL Normal 0.0-1.1 [facility] Comment on above: Performed By: #### 2 [id number] #### [facility] [address] [place] [address] Bilirubin.direct [Mass/Vol] 0.0 mg/dL Normal 0.0-0.4 [facility] Comment on above: Performed By: #### 2 [id number] #### [facility] [address] [place] [address] Bilirubin.indirect [Mass or moles/Vol] 0.3 mg/dL Normal 0.1-0.9 [facility] Comment on above: Performed By: #### 2 [id number] #### [facility] [address] [place] [id number] Globulin (S) [Mass/Vol] 4.0 g/dL Normal 1.4-4.0 F [facility] Comment on above: Performed By: #### 2 [id number] #### [facility] [address] [place] [address] Protein [Mass/Vol] 8.6 g/dL High 6.0-7.8 [facility] Comment on above: Performed By: #### 2 [id number] #### [facility] [address] [place] [address] Lipase Levelon 06-24-2024 Lipase [Catalytic activity/Vol] 29 U/L Normal 13-58 [facility] Comment on above: Performed By: #### 2 [id number] #### [facility] [address] [place] [address] SEROLOGYOrdered By: Levi rajan on 06-24-2024 HCG.beta subunit (U) [Moles/Vol] Negative Normal [facility] Sero U BetaHcg [place] 06-24-2024 HCG.beta subunit (U) [Moles/Vol] Negative Normal [facility] Comment on above: Performed By: #### 2 [id number] #### [facility] [address] [place] [address] UA with Cult Rflxon 06-24-19 25 Bilirubin Ql (U) Negative Normal Negative [facility] Comment on above: Performed By: #### 4 [id number] #### [facility] [address] [place] [address] Clarity (U) Clear Normal Clear [facility] Comment on above: Performed By: #### 4 [id number] #### [facility] [address] [place] [address] Color (U) Colorless Abnormal Yellow [facility] Comment on above: Result Comment: Micr oscopic readings are only performed on those samples that meet specific criteria set forth by [facility]. Performed By: #### 4 [id number] #### [facility] [address] [place] [address] Glucose Ql (U) Negative Normal Negative [facility] Comment on above: Performed By: #### 4 [id number] #### [facility] Laboratory [address] [place] [address] Hemoglobin Auto test strip (U) [Mass/Vol] Negative Normal Negative [facility] Comment on above: Performed By: #### 4 [id number] #### [facility] [address] [place] [address] Ketones Auto test strip Ql (U) Negative Normal Negative [facility] Comment on above: Performed By: #### 4 [id number] #### [facility] [address] [place] [address] Leukocyte esterase Auto test strip Ql (U) Negative Normal Negative [facility] Comment on above: Performed By: #### 4 [id number] #### [facility] [address] [place] [address] Nitrite Auto test strip Ql (U) Negative Normal Negative [facility] Comment on above: Performed By: #### 4 [id number] #### [facility] [address] [place] [address] pH (U) 7.0 [pH] Invalid Interpretation Code 5.0-9.0 [facility] Comment on above: Performed By: #### 4 [id number] #### [facility] [address] [place] [address] Protein Ql (U) Negative Normal Negative [facility] Comment on above: Performed By: #### 4 [id number] #### [facility] [address] [place] [address] Specific gravity (U) [Rel density] 1.003 Invalid Interpretation Code 1.005-1.030 [facility] Comment on above: Performed By: #### 4 [id number] #### [facility] [address] [place] [address] Urobilinogen (U) [Mass/Vol] Negative Normal Negative [facility] Comment on above: Performed By: #### 4 [id number] #### [facility] [address] [place] [address] Type of Urine collection method Clean Catch Normal [facility] Comment on above: Performed By: #### 4 [id number] #### [facility] [address] [place] [address] URINALYSISOrdered By: SYSTEM SYSTEM on 06-24-2024 Bilirubin Ql (U) Negative Normal Negativemg/ dL FT UA Auto SS Clarity (U) Clear (06/24/24 11:36 PM) Normal Clear [facility] UA Auto SS Color (U) Colorless 1 *ABN* (06/24/24 11:36 PM) Invalid Interpretation Code Yellow [facility] UA Auto SS Comment on above: Interpretive Data: M icroscopic readings are only performed on those samples that meet specific criteria set forth by [facility]. Glucose Ql (U) Negative Normal Negativemg/ [...] Desc Clean Catch (06/24/24 11:36 PM) Normal [facility] UA Auto SS Work Phone: eGFRon 06-24-2024 eGFR 114 mL/min/1.73 m2 Normal >=59 [facility] Comment on above: Performed By: #### 1 [id number] #### [facility] [address] [place] [id number] Coding Summaryon 06-23-2024 Coding Summary HTMLBase 64 FqkmovutKWa6qSd+PGhlYW Q+YL3EMAUqI42onTMlrJ6x D7FFAPzSQjwjBTEJNNzIMy NbfnReRN5zkEAnFQAm IC8+VT1gLNNlSzzbxKCqm4 G5vSC8H85eqv7ySWdfaXQ6 VWCrDtPuhbhut6rqaCi1ED cuNmluOyBt UKAhxV14YUV1pW23Wv93qV RukEYuh7qipIj5CkDjBNAi AKU8yUxxIBegu0RuZOLcR3 0pwHOcz1E6 JQEboEtrnLCoNaQvoJO5bA 4eMEjtlsvuq4rhcsxzGzz7 wa18nCByk3P0mVE5X6Xpzi K1UJJjbCCl ZtemhQXNzX6dinnvn4hmvo bvQdAoLHViSIj9CGz2AISu bDodOvCpVD74WKE1XIWwbz QiN9CaPROk aKtkMsW7h9G4Ae6ED8UOQb ugC6DOJEWBSKyhxGC+PC90 be86D9BxLjaqCxz1PTRnGK Y5nIZ1aA0o MZBoMRtmi9D0nME0C4Aksv Zhdg2ji5jeFSCuDYrtB25h lUOns5Y6HMNmzAC5WFXvlG bqNfByfU13 Oyc+RMBcyKdrz2JzGcjea6 aqc5lleSc6WqzbNWZacoXi aBqwUVA7f5AnXf1tIUVvbT H3dXZ2sT2s KdRsIqR1AQgtV608LdVlnV CuDevvH12jG7GmnYN+PHRy Vle1XBSxlDdhWN0lS1BwLV RpbmctbGVm hJraYV8jSXUneenkLNYozM 0gCLXfF0g9ZpLzByM5MSig G9FeOMGpvetdKh61cS7mDf HdGbH2RLtr X7SrawX4UWCocFHhPIfaBT G5O60ox8L4RWVrPTHnQCI0 sDB5tL5lsQndpsnliHXbbC sgdmVydGlj QPypPAhwR542BYAbqMtzAx NvZGluZyBEYXRlOiAgMDEv MTEvMjAyNTwvdGQ+PHRkIH W7zAtbCRJl gILjSNubEv8dbSwnfKxmPE 6qAXWkzypnDRBzkA2rBPId dLRslEsmCI7dJRMguvnbm0 03AjTtZJH7 CWIeeOPjV1JatO5zBkPhCR LaBNTkC1VrbHDpPZhvC007 FFbnAbX7QOXimpPbJ1UzIE FsaWduOiB0 d5F0Yb4Ie0FfktdsY8JibR DnNkZvGyjnXLu4X9FuIiub dHI+KB30XXIsFP90NEg1OJ H5kAakYTtn TSNcR2RncD9cGjZgTVNySS RkOyc+PHRhYmxlIHdpZHRo WNdxZQHqByCkmRtkHG0xXo 9yZGVyLWNv qLoxiAOaUfMcs2gxMTHjPE cmLK0ncLwqM2HevSG7IDLw q4k7Mf87N45kH2ZzfMH+PG IgaGT0qVK6 iK7xNmVvHzK9BKtoY863Id TrmHAaGgzax8hug7qthSt6 EyU1ASDddmQpmZavPUB7y5 XaWl76N66f IHdpZHRoPSIxNSUiIHZhbG rtqy3vmM4qKg6+PGNvbCB3 jHF3fN8vGiHrDgW6WNkeZ5 49InRvcCIv Tkxlx6pbi5gjhTy1HfSwXT HwhoZneVucRDF6v7LrXi33 W9BoiGggf4ZuSwt2zr24aU Zai7D3qIS8 W7HtNXYvloqroYXbsQgoFG 7jZRIcuxjpUESoiM6oWISm U0z5BwHnRfI0QEouN6Daaz W4FUBrnOQf TINtnMDYxG3ufavjo3yeyq alWuSwCFUfFPf5FKz6KQYj sMnsPpEnEQE4BmX2THB1pU RvpZ8awEol nfblmO2pVfl+HUT4zTWzuQ VNXP4dWaxjqYU+PHRkIHN0 jOeaQHzvDMTrtO1lTOHoJ0 d9OzRbWxT4 SMbbV3NexmO3FQDqiSGlSQ YfvRNPjL8tympyy5zktsbu UmTfZSMhYGr9SXb8XNZimB duOiBsZWZ0 XoI8ZTC1eWAffQ2qeVsfdo ealN8nDvw+QmlydGggRGF0 VCa1X7MmZjn0QGFwhOkcMU 0ncGFkZGlu Bp5uaXyfrQodID9cSEXzgq nwc833FbGqr0sfQRUyiKLt LIaqMJN9R42kt9B3CIDuZS IvCLW5eND2 nW3viYecbasmzIWvuXdvby DzjGvsNYbfENafT355UFUq jAsfMwGfWQd2Q1UeKbr1PL BcqIjvWO1i mZYaMUfyJl8apCtllJoiAP 9eRVYqxpoum246VoWcr7iz ZXMawNRlYUloODO4R64qp5 V5CSOxLRRx CBD1vDM9bY9kvOoooxvhgL VmdDsgdmVydGljYWwtYWxp T262WBGbxUpjZkZhaUy3V1 CaFbi4FWIz wIpcUQ2tyNXmULylXd9ifT eawXszNG3kBJVicgfln767 VzLlh4vzRHBaqVTqSPuyBH R4F89ju2G4 UAMjNJLjXYQ3lJC4gD8amJ lnbjogbGVmdDsgdmVydGlj VFmeBKuuI074IHRfqUwiXz BhdGllbnQg WGxwOTz1G7GhXnmdcMS+PC 00UKBdZJ44kLUvoNDzo0tj bVi9NlWeSQFdYMH7eHjrOM ovz3OlBSDm W30clNVbb3L9BIMbnGoxzJ FkDwHsfEM7nX3vJSscnvku j4tojxknYeizp0cpoy18mO 49P69wYCgj ZHRoPSIzMCUiIHZhbGlnbj 5anG7hWi1+ZPShnAL8qAK8 bZ9hKNYpPrH5CWdiC170Qi RvcCIvPjxj z5osf4aomDy7XkI0SWQnnu UgmVnrLSS0h2NuLh96Q52r IHdpZHRoPSIyMCUiIHZhbG yrku2jkN4f Ii8+ASCbtNR5sQE7pF1hIm NiEgC5BUixO339TpFgzKLy WlicQ69cT5JjlVG+PHRyPj s3ZADppOxl MP1evYQrDRewJu7tGCW3Tr UzDzYpEGcrN9FlSRAespsl qzzxaMM6NJOuJOPhyS04Px 9udDogMTBw gQIXbT1rmjmfw1smuirbAh JbCGKgAGb4JJv1NMIyfAwi ZoUmVUS3WrT6WNA0wEVqmS 1hbGlnbjog nK4gX1QjNGJdybljGl61jY 5pMdPwSgH2LYbzPkv+SE9X QVJELCBTVEFDSUUgTEVFPC 22UF70yYXu m9S1pWK5F5TtGZObbusdgs jnjAZ2DYLmVVRgdN88wVBw DHnmRb3sn2C7d192DCQtSU AnuL77Hx9m tNudMZPynXYDqO7oxjyxj4 mjxblzQaMiZWRhBXm1WOh8 GFDwlHfcSpFvEJG8CxG0UO Z6bYPjeO2t eDaabwkqoH3qOig+MDcvMz FpLEh0DwdrtUU+PHRkIHN0 uZqnZCgtFHZgpJ2iSNHlP9 r0QqDqCrW6 AWfaN0NwISYeiuxqUf42xZ 7gIeJvEfY6CLudM3BydsG1 MFPzfBTaJVrxJFF1V19hq2 C3GOThALIr OLA2kHQ0eC6ywAjnmbldrP VmdDsgdmVydGljYWwtYWxp S151NHHpeLkfZlW2WYrkEE JrYO93HZ57 bIVlj2V0bBP0V8AlRXXqfs dwcvejlQD0CAIuTPJaxL40 eQSmENqqQc1zo9A7r603LU ZcFCEjaS13 Fa0mfHdlRUUogQVQsB7nmi cpi4agxsrqTjIyGTLpTGb6 XEl2LJGqnTtaXcXqAUM0Ow H6CSQ0iPOk wX3gdRjawpkmiN9aNub+Rk LGCDhZZV05IO75mTJee1Z5 tNR3K8TjMDLntuuqohttqH X3EEIgZAMx uX78rRHrMDahIy2yk4S8q1 59LJJdJSVabL29Bm2ugFea LIPttULXvK8syqszq3oheu ogIzAwMDAw WLt6IXn8FALmtXmwZpVrDB O8KzC7FUD6yGCekB1ukTmq tzrkzJ9kPre+LW4bhjwdhm S0WW52CZ61 M8RfYonheFUziJC+PHRhYm xlIHdpZHRoPScxMDAlJyBz lTwwZW7tPy3wDBPpOKViyO xhcHNlOiBj c3qbLWUfSIzbHO4lvDiwN7 CdbKH3MUYtm2x2Jj31X01o F8UrzHV+NLYyjMD8bXD7iO 7aGwGpKnX3 XGfrZ517MtObgMGfWkefd2 ryp7zssDi5MhByDLJqzgDf aLreOCH3z0DqTo72H28rNR dpZHRoPSIy FBHpZFHktFoqyi1arF7cOu 8+HBMjmWK0eMC5eV4mVkOh ZmM4XNzdE225LnMigFMeDp fnP44iF1El dXA+GANdEcg6DSDflTpkTB 9iuLMeHRicTy0lMCY5MqDa MnCoYQlgR7OkOJGbznnqwz lzqEX7AMLi RFHttJ56Oa9zsAxrBm6yLO BfGMS3TDEmeZCcE1UgrQ3p ApYwNVKlCNBtJ3RjoAJmHH xvD098XKul OjG9XOKzpvPmX9JoXVRkrE ubPiU5j5W2Hz1SzXlgaVEa KK1eNdNtFLu9K1XuOpk2MZ McnCcuOH9t wWZsBKvaBs1jwSwtoZphNV 0mVYCjuwknf411TwTdj5cf XBIolGLkPWzeOQH8E98bg5 S6DLNzYPSt SKL6iSK5pQ3zlKcqkggcgA VmdDsgdmVydGljYWwtYWxp I356BCBdtOghQtIUXao9H6 AkNfs6XSTc aEyfNF0gtABcOYpgGv5egI ytkLzlCL7lAHFeguuez286 VuYfk7drNZSolZSbUKlwFB A0G58ud4Z0 ZZIgMQEzMJQ7gHD0rI2loY lnbjogbGVmdDsgdmVydGlj YWsnSVduN765MQUagRroFi 3PWum4E4Eb Jcd1XSKssRisVH3cxJJtKH clXq4guEhhzAzrCV2kKTGs svvbe548FxGvl8eqJEMwpB QgVGltZXM7 V72vv4L0AVNaTQRvQWU3dN W1sC4quMofqylpxJZtlFxe khKwlCglCGehDKqdB607TB RvcDsnPlBh eWVyOjwvdGQ+VU73jy94N0 DqKmwmGdv9ZUUzXUW8bIG7 mL6xQYZtPUimx3R5tIY3B7 ZlpbKcct4r b2x (more content not included)... [facility] Coding Summary HTMLBase 64 VgujqiisBYs4rVc+PGhlYW Q+UV6TVYTbV56izLHfqC0m O9QFPEpARpjaKGQFSJuPIv ReqkVdJL6gkQFdOXUt IC8+AR2xWQXnAubxpETwk0 Q6lME9C59iiu5kAPrxiAL7 CPEsOfZbryavk1bscMy2XC cuNmluOyBt CTDumO44KIV5lF96Dt87hT ZtcPZyy3rrvCd2OyDyPOUi IFE5kNvcFVbol3MbGCLfH3 4wtJXws8M7 QQIztFlddAOuEjXwlCN5pR 2eLLuxypbwn0bgvoihQze8 tm06xLWdc2J4bUL2C4Zodg N4IQVeiBKr ZcsynOEFhB6fpziwp4nsht xnGeGvPKKsFZo9UZk7HCEi xZtvCfPfSG95FPO2MCKaxv UjD5ZyIBCt aRoyScY8o5U8Lr6RW5NLIo laC4GMWPQHVYacvKB+PC90 ng94X4FqCquoKnv5BKCjSB O7lNP4rV1c ADGeZBnsn5S7oTZ3M4Lmuh Gnwz0xd1enUAMxILnlB81q kGJmn3R7NGKjsTU4DPSsuY mbNzGqoO93 Oyc+GXFgjAvnb9GvGkxtq9 mqa2dixNk2EcgyMZKkfpMd uSpwQRA3y5ZtTb5dSJQmlY T6sUU9fU6x VdXxZmU3NGzxS185RaXmoD XyMnopK72dY3LnpRA+PHRy Ftg4JMHqnLmrWU9yO5PuPM RpbmctbGVm iGxuBA7bJPOglsmmHOPugH 4wQMSjE3n6RuIvCuC1PXqk X2MgTDBfzntmKj16vF1vIn MhZgC6TXan V1TtdfK6UJPfiGFtUDmrSH V7W18oe9N5LQTnABUlOKA5 wST5tN1pkXochvdujUMqhU sgdmVydGlj YYkaQJsoJ240YHGdeLtpIb NvZGluZyBEYXRlOiAgMDEv MTEvMjAyNTwvdGQ+PHRkIH G5bIjrQCGn zECyHFjqRn3olFxvfAjcVN 2hVDPtrrehLNEvrB3vRUOo rUSrvAjhVL5xHYTljzhta1 64LcPuVQO9 UKKmxBYbR3SxuW4kObLyET LcNEUpD8TvqRPyLEssD282 REqiPuX9FGLoooGnE9HxVM FsaWduOiB0 z3O3Dz7Vq2CsccucI3WmcF TgKiPrEgtwUAk1O3IzMatv dHI+DV77PTRpGE30BOp9IE Z4vCjqPOxb LRLvH1LzzM2iIdLnIIXtWJ RkOyc+PHRhYmxlIHdpZHRo TFvwRZHuLkLchQkzFF8xEc 9yZGVyLWNv xMvniEJoKqKsv3yeRSWnGS vlKL3pdArdX6IuvGK0VTWv e5h1Bw55I93sB0XocRG+PG VhvAD4vNY8 dE6eJqOoNrP3FJztS612Ir WniBIdXyoqc7rcx1eqcSv6 DrK4IXCefuNomUtqOAV8l5 KnVx72U16v IHdpZHRoPSIxNSUiIHZhbG koro4bqL3iPc1+PGNvbCB3 tEM2mK4oKeBdRiW6HWckS3 49InRvcCIv Mnwlm7gky8dliCq1VrObJB LfedPjeNffACJ5x2LaCk27 C8JkwShyy8VoNto4wc22eG Nwe5C4uGQ9 K4XhKRXxydlbvKWcfCguRJ 3aEXMjzzeeUVJkkT3nCOMy P7d3HqUeSaB5FYelT7Chpe A5FFDacUSs HWTloYFBmL7penvid6zgvc nqChJfOJRfCKe8IXp5UNHp gRosSyIuKIF9HnA5GYH2fO TikQ3ckDcs mftnaI6fWjy+CHV5xRJjjW KOPQ3xZncmgKA+PHRkIHN0 tRcyVAliFMDclP0fXZRvW8 b7OuWqVsK9 SBieP6EriwJ5HXHtkGClYH YsbJOYnZ3ripwfd2drdiwm UnCaPMZhWYf5UUb9ITTxqT duOiBsZWZ0 QwB5PJH6mPYlrZ9qiJawnw ninB2nNmn+QmlydGggRGF0 PAs7Z5FsHhi8MBKcaOxoBB 0ncGFkZGlu Ly0oxGfluEgxUQ9lBXPgzj ufc781UeWjf2xlPLYpdXIt EMvmYPT9S09js1W5CZVbGI TgDBG7tHA4 zH7xkUoisbtthGFktIycno LesBhwCRobUWujV086EZXz pTreGuPiXRi6L3VvIog7CC ApqFbxPH2x sYWxEAhgPs5ocJzhzDlaUB 4fJTGubiwlu935WyZjl0bp FWYxlQSzNEmrXSY8L62hj5 V0MRCsKWLu EXQ5uYS5jV1aiBeoipwyvW VmdDsgdmVydGljYWwtYWxp A539SUTekYbzBiSuhRb8M2 MmMed9UCAk cYhvMG2cwJKoMGjfKf5cnM krrZyhLX0tLSPjjvvru494 VkIjr3aiQMSygPPzEHrzQZ F6C73iy1B4 QZGnLXTkRYN0hII6mC5dbH lnbjogbGVmdDsgdmVydGlj WAfaPWyjC495DOBcbYeeBw BhdGllbnQg PVihGSt8T8DyGpkljPR+PC 80UWHzHI19wKAibJPbs2kq kCq7LdVuNIVxOOP5pToaOU pnl7WbXRLm E55ejGEoi5L2NCQnzWrajB MlCdXsyQP7yW9gCLqtzlqa e2prytafMlizj1ftym61lX 79X30cHCfh ZHRoPSIzMCUiIHZhbGlnbj 6viD7gDf3+MVAeqVT0nIW1 nO2vUEMgReZ9SOgfQ235Me RvcCIvPjxj g5rzr0wnmBm4TmS5BZVnvr SxyQqiQBF5n9KiGv39K17a IHdpZHRoPSIyMCUiIHZhbG gdpg6vzV8s Ii8+JJTesNG6wRH9yB9uEt CiUkO2FBekJ889BmGpnKJi GkpvN26dZ2SmtFI+PHRyPj y2ORCekAck NL9kdZYmCQtaXj8wIPK3Nu FlRhWaYSczJ7XhQPCakrnm smvfaHR6GYQhNFVtwB67Bp 9udDogMTBw pZWWfC4nfsbwo9pqgfpzDa WaWJOpITq6PPt6AMIfwLsh KkLsQTI0ZxC6IDO6yULkzH 1hbGlnbjog xB0iY9OcDINtxfifBo14yA 8aDdBhPdD5VZbzMho+SE9X QVJELCBTVEFDSUUgTEVFPC 12GT43aYDn e2W5jLR8R1WvBLDeyufvau bobOY8DNZdHPNhdM72gTDo VDohOx1uf5H0p932PMFdRG XacM46Sp6e vPnoJWIxsVBEkO7srhxft2 qqxeybDrFlKSDrZNp0SBl8 FZEtqDdqXcWfMDS9EyA7IL P0aMFdhJ2y cFwqjvjzhO4iGmi+MDcvMz OkKCz0IzulmRS+PHRkIHN0 vTabQVsnCYCjzM1uZRDdB8 p0PbMhCzI5 ZTwkN5OtVMHknmbhLg04xY 9oKmXaXsC7LSjaB8UbdtW7 KZFyzASuOBuoJHA5N07nm5 W9WUEoKYOq FDU2nIW6eL2ijAuryyfqiA VmdDsgdmVydGljYWwtYWxp M682JRLmfRezRuS8HGvfBE WwDF00GV88 jVUrx7D4kTM7L0ElVPBmbv hylfgihAX8RYRnUKKicR15 eYBdZGutAw7jr6F3p331UY LeOXYlaX42 Sc3jyCfaKXIgwRDOhF9low llu9dydalxNoRbVCWjHLs4 SQu2VZTcjFhmTnHaQUH3Iu Y3IGN5bZNk eY1qwMvckaxqxD1wGjf+Rk UYHZmKSG30YS83oOIgp2I6 cSJ3R7BeFHThyvixcndpbX N4OWXxWDZv mC53tFGoJQldZm1td3I4t2 01BFMcGNQgnK82Hs1xpZnh SYWhlCNHpG8lkuxrt7poti ogIzAwMDAw VEm6USe5IXGbdAghErHnFI U7OxI5RHQ4dWNmyU0fjJao qrlthW8yVzz+LJ1pvvhtxo L2SJ64HQ67 O0OlCzvbhRBrxJC+PHRhYm xlIHdpZHRoPScxMDAlJyBz lKroQV0cJi7rIIWhVXYgfD xhcHNlOiBj t5ljGTNuUXqgIH9veWcnW4 MatWR5MUMhs1m3Tf75M28s X4JojDI+HVOmzRD8gOU5fC 8gEnOeBoC7 HQwxK597AdQpiATaLjcps7 foq3smzSr3QoGfWXYfzgIf kYlvRQN4n6LfBd82S52zNH dpZHRoPSIy VVYnPXHhlGrszx3kdX9hOw 8+RVJlnWL9zFG2mT8jSmXl DuV1FZmiP567JnKcfZBbLf ttP42yG6Ww dXA+VGHxTvd8MERnzOuoXY 9szPEiVBdfIm0mYDW9YhZh UgSjEZcxX8SrRYPcqweotl hkiKY6EYLq JEEovP53Ka7xkCuiDq7iXM UeAVL7CTBatTNtW4DjoB9h GrFzLPLzEQLwN3UkcQLtXU ldF818BWfn KdC0CNPmmxLiQ7ZdLFJijF raRzZ8m6P9Pr7CuLcuaDWm AI7lVwXlVBh8J0LpIcd6VS GibMfyMR4s iAYtSMzxNf9qnAsrhAipQB 7eQUDgxsipj767JnIkc2mm HNXvmJHnAWatZAZ4X36wu2 V9MPNqVTOc INA1mHE1sY7hrAqrsuuoyV VmdDsgdmVydGljYWwtYWxp M404OVIinRcoCxZWIsn7B5 QqEaf2VRXh rTfsBW8giMRcACqoVx8ckU sllXkkNP2pCCUfkrype147 WmPao1loXOAtrBAaUKipNR V5B67pd4M8 XVMwBVTyFZI3qEJ4fH0sfC lnbjogbGVmdDsgdmVydGlj CYdmZTodM000VKUndClaJb 4QHeh8J9Uy Swq8HKVdjBqlOK9caOAuEW qsKv3iwVhthQpcXZ6lSKXw stekr308LcEbt6uxOPEokY QgVGltZXM7 O97wz0B3USRsGFOfWQV3oN R2pH8dpHnhajxekOBnhHzd idIyzAyyTBrnTFknP974NO RvcDsnPlBh eWVyOjwvdGQ+TN48uo89P5 FmQsfnWrz8UBEgYZI8uLN5 sA7yMROdCVmnr7Q8dCP5H0 WhgsGrgo7e b2x (more content not included)... [facility] Release of Informationon Release of Information [id number]#1.[address] [facility] Consent Formson 06-12-2024 Consent Forms [id number] 20 [id number]#1.[address] [facility] .Auto Diff 1on 06-11-2024 Auto Candler % 6 % Normal 06-24 [facility] Comment on above: Performed By: #### 1 [id number] ####[facility] (DEFAULT)[address] [place] [address] Baso Abs# 0.0 x10 Normal 0.0-0.2 [facility] Comment on above: Performed By: #### 1 [id number] ####[facility] (DEFAULT)[address] [place] [address] 86886 Basophils/100 WBC (Bld) 0.7 % Normal 0.2-2.0 [facility] Comment on above: Performed By: #### 1 7021145, 7434120, 7044503153, 2866845881, [id number] ####[facility] (DEFAULT)[address] [place] [address] 16522 Eos Abs# 0.0 x10 Normal 0.0-0.4 [facility] Comment on above: Performed By: #### 1 7981155, 7087635, 2112278978, 2335616363, 1252760357 ####[facility] (DEFAULT)[address] [place] [address] 65650 Eosinophils/100 WBC (Bld) 0.8 % Low 0.9-4.0 [facility] Comment on above: Performed By: #### 1 3661449, 4460074, 1420130074, 0609317814, 3316419940 ####[facility] (DEFAULT)[address] [place] [address] 42216 Lymph Abs# 2.0 x10 Normal 1.3-2.9 [facility] Comment on above: Performed By: #### 1 3456319, 4045147, 7384355905, 0811846146, 4924382272 ####[facility] (DEFAULT)[address] [place] [address] Lymphocytes/100 WBC (Bld) 37 % Normal 14-48 [facility] Comment on above: Performed By: #### 1 6663726, 3511569, 7724157065, 5062315333, 4755469221 ####[facility] (DEFAULT)[address] [place] [address] Candler Abs# 0.3 x10 Normal 0.0-0.8 [facility] Comment on above: Performed By: #### 1 2543063, 0593744, 1441556542, 6404471999, 6958453527 ####[facility] (DEFAULT)[address] [place] [address] Neut Abs# 3.1 x10 Normal 1.5-9.2 [facility] Comment on above: Performed By: #### 1 1614163, 5172397, 5643479398, 7165998376, 6038424696 ####[facility] (DEFAULT)[address] [place] [address] Neutrophils/100 WBC (Bld) 56 % Normal 44-88 [facility] Comment on above: Performed By: #### 1 2468117, 1707808, 8894797080, 9527523302, 8348983982 ####[facility] (DEFAULT)[address] [place] [address] CBC w/ Auto Diffon 4 Man Diff? Auto Normal [facility] Comment on above: Performed By: #### 1 1053409, 3922182, 0739525735, 8148275794, [id number] ####[facility] (DEFAULT)[address] [place] [address] Erythrocyte distribution width (RBC) [Ratio] 20.0 % High 11.5-15.0 [facility] Comment on above: Performed By: #### 1 9400074, 4731053, 1504351215, 5456264823, 7576365190 ####[facility] (DEFAULT)[address] [place] [address] 30509 Hematocrit (Bld) [Volume fraction] 35.5 % Normal 33.7-40.4 [facility] Comment on above: Performed By: #### 1 7553615, 6071652, 3487166912, 2540119458, 9943972673 ####[facility] (DEFAULT)[address] [place] [address] 04705 Hemoglobin (Bld) [Mass/Vol] 11.3 g/dL Normal 11.3-15.9 [facility] Comment on above: Performed By: #### 1 7064647, 6559346, 7760555578, 2798794371, 4634512415 ####[facility] (DEFAULT)[address] [place] [address] 87959 MCH (RBC) [Entitic mass] 23 pg Low 24-34 [facility] Comment on above: Performed By: #### 1 5926570, 9209469, 0837975616, 6693345207, 7384739260 ####[facility] (DEFAULT)[address] [place] [address] 96579 MCHC (RBC) [Mass/Vol] 32 g/dL Normal 26-37 [facility] Comment on above: Performed By: #### 1 9034400, 7228919, 3719131574, 0364340444, 1821762420 ####[facility] (DEFAULT)[address] [place] [address] 93339 MCV (RBC) [Entitic vol] 73 fL Low 81-100 [facility] Comment on above: Performed By: #### 1 1015974, 6596856, 0790668044, 8784866805, 5359156916 ####[facility] (DEFAULT)[address] [place] [address] 23051 Platelet 432 x10 High 138-427 [facility] Comment on above: Performed By: #### 1 1679416, 4987800, 0063020373, 3393138744, 0710127263 ####[facility] (DEFAULT)[address] [place] [address] 96031 Platelet mean volume (Bld) [Entitic vol] 7.8 fL Normal 6.3-10.2 [facility] Comment on above: Performed By: #### 1 3468849, 4253695, 4601103004, 2483533676, 5906092409 ####[facility] (DEFAULT)[address] [place] [address] RBC 4.87 x10 Normal 3.70-5.30 [facility] Comment on above: Performed By: #### 1 4719870, 1446351, 4819930543, 2252313991, 4140874972 ####[facility] (DEFAULT)[address] [place] [address] 45763 WBC 5.5 x10 Normal 3.5-10.5 [facility] Comment on above: Performed By: #### 1 3645199, 4941925, 8113016971, 0648173560, 7216637089 ####[facility] (DEFAULT)[address] [place] [address] 45658 CMP Standardon 06-11-2024 eGFR Non AA >[address] [facility] Comment on above: Performed By: #### 1 2476367, 8829365, 8095502728, 0664900098, 9249194505 ####[facility] (DEFAULT)[address] [place] [address] 84395 eGFR AA >[address] [facility] Comment on above: Performed By: #### 1 2107444, 3279030, 0861844314, 3432935407, 0888333245 ####[facility] (DEFAULT)[address] [place] [address] 99512 Albumin [Mass/Vol] 4.2 g/dL Normal 3.5-5.0 [facility] Comment on above: Performed By: #### 1 2036986, 6499773, 1602208049, 9757614778, 3760092591 ####[facility] (DEFAULT)[address] [place] [address] 21660 Albumin/Globulin [Mass ratio] 1.0 {ratio} Low 1.4-2.6 [facility] Comment on above: Performed By: #### 1 6144743, 9110342, 1893682211, 5109202157, 4232038964 ####[facility] (DEFAULT)[address] [place] [address] 13281 Alk Phos 61 IU/L Normal 32-91 [facility] Comment on above: Performed By: #### 1 5054772, 1436464, 1699373812, 6214546182, 7064260900 ####[facility] (DEFAULT)[address] [place] [address] 91174 ALT [Catalytic activity/Vol] 28.0 U/L Normal 14.0-54.0 [facility] Comment on above: Performed By: #### 1 7219541, 8129456, 4191454672, 1413801660, 6662659068 ####[facility] (DEFAULT)[address] [place] [address] 87756 Anion gap [Moles/Vol] 12.4 mmol/L Normal 5.0-19.0 [facility] Comment on above: Performed By: #### 1 4295375, 7755849, 3725019542, 0303335177, 6700877461 ####[facility] (DEFAULT)[address] [place] [address] 40137 AST [Catalytic activity/Vol] 23 U/L Normal 15-41 [facility] Comment on above: Performed By: #### 1 6456081, 3764327, 8508364195, 1497762527, 0687098292 ####[facility] (DEFAULT)[address] [place] [address] 69820 Bili Total 0.8 mg/dL Normal 0.3-1.2 [facility] Comment on above: Performed By: #### 1 0458561, 4267814, 1890747795, 1692010024, 3127885777 ####[facility] (DEFAULT)[address] [place] [address] 82307 Calcium [Mass/Vol] 9.1 mg/dL Normal 8.9-10.3 [facility] Comment on above: Performed By: #### 1 2617832, 8261802, 7403921958, 9333929191, 5758623235 ####[facility] (DEFAULT)[address] [place] [address] 39614 Chloride [Moles/Vol] 106 mmol/L Normal 101-111 [facility] Comment on above: Performed By: #### 1 6477661, 7870375, 5797766641, 9581546823, 2659448654 ####[facility] (DEFAULT)[address] [place] [address] 52773 CO2 [Moles/Vol] 23 mmol/L Normal 21-32 [facility] Comment on above: Performed By: #### 1 9642520, 3504164, 6668562560, 7141768846, 1164637271 ####[facility] (DEFAULT)[address] [place] [address] 58436 Creatinine [Mass/Vol] 0.78 mg/dL Normal 0.60-1.30 [facility] Comment on above: Performed By: #### 1 1901307, 9788402, 6914223700, 5648055797, 5637167939 ####[facility] (DEFAULT)[address] [place] [address] 74574 Globulin (S) [Mass/Vol] 4.1 g/dL Normal 1.5-4.3 [facility] Comment on above: Performed By: #### 1 2984852, 1581235, 5843384242, 5504038974, 5677115557 ####[facility] (DEFAULT)[address] [place] [address] 36614 Glucose [Mass/Vol] 104.0 mg/dL Normal 74.0-118.0 [facility] Comment on above: Performed By: #### 1 1621504, 7598880, 3797382389, 7120719656, 9712991935 ####[facility] (DEFAULT)[address] [place] [address] 25223 Osmolality 274 mOsm/L Invalid Interpretation Code [facility] Comment on above: Performed By: #### 1 5163643, 6568527, 2310746487, 5911149617, 2708579143 ####[facility] (DEFAULT)[address] [place] [address] 51892 Potassium [Moles/Vol] 3.4 mmol/L Low 3.6-5.1 [facility] Comment on above: Performed By: #### 1 6718041, 0005400, 0249926298, 5388445228, 7472476741 ####[facility] (DEFAULT)[address] [place] [address] 05701 Protein [Mass/Vol] 8.3 g/dL High 6.5-8.1 [facility] Comment on above: Performed By: #### 1 4345725, 3075462, 7744774498, 3339294680, 3990977225 ####[facility] (DEFAULT)[address] [place] [address] 18912 Sodium [Moles/Vol] 138.0 mmol/L Normal 136.0-144.0 [facility] Comment on above: Performed By: #### 1 0190351, 4922419, 1003104446, 8626058418, 0492920237 ####[facility] (DEFAULT)[address] [place] [address] 59215 Urea nitrogen [Mass/Vol] 8 mg/dL Normal 8-26 [facility] Comment on above: Performed By: #### 1 6711661, 6359843, 3214346208, 7261435463, 8112770334 ####[facility] (DEFAULT)[address] [place] [address] 64693 Urea nitrogen/Creatinine [Mass ratio] 10.2 mg/mg Normal 4.6-16.2 [facility] Comment on above: Performed By: #### 1 9649809, 6776999, 5114981276, 8040976367, 7314580241 ####[facility] (DEFAULT)[address] [place] [address] [facility] Comment on above: Performed By: #### 1 5820272, 0270008, 1441084893, 2534289282, 0820139857 ####[facility] (DEFAULT)[address] [place] [address] 70233 ED Clinical Summaryon [address] [facility] - Emergency Department [address] [place] [address] 89461 ED Clinical Summary PERSON INFORMATION Name: ANTONIA NOYOLA Age: 39 Years Sex: FEMALE : 1985 MRN: Acct#: Visit Reason: Abdominal pain; RT SIDE ABD PAIN Arrival: 06/11/2024 15:13:20 Discharge: 06/11/2024 18:32:00 LOS: 000 03:19 Check In: 06/11/2024 15:13:20 Checkout:06/11/2024 18:32:00 Address: [address] [place] [address] [place] [address] PCP: Provider, None PROVIDER INFORMATION Provider Role Assigned Unassigned Letty RN, Celestina Leos ED Nurse 06/11/2024 15:15:36 Lenka Padilla ED PA 06/11/2024 15:17:46 Eran Hill MD [...] Home PATIENT EDUCATION INFORMATION Instructions: Ovarian Cyst, [id number] Follow-Up: With: Address: When: Provider, None [address] [place] [address] Within 3 to 5 days Comments: Please call Dr. Wilson office and see if you can be seen sooner than June 18. CT scan shows a possible right ovarian cyst. This needs further evaluation from an [employer] specialist. Continue taking medication as needed for pain. May take Tylenol 1000 mg every 6 hours as needed for pain. May take ibuprofen 600 mg every 8 hours as needed for pain. DIAGNOSIS: 1:Other ovarian cyst, right side Patient Understands: Yes - Patient/family/caregiv er verbalizes understanding of instructions given Comment: Normal [facility] ED Patient Summaryon [address] [facility] - Emergency Department [address] [place] [address] [id number] PATIENT DISCHARGE INSTRUCTIONS Patient Information Name: ANTONIA NOYOLA Age: 39 Years Date of : 1985 [facility]: [id number] Reason For Visit: Abdominal pain; RT SIDE ABD PAIN Arrival Time: 06/11/2024 15:13:20 Primary Care Physician: Shazia Adair Attending Physician: Eran Hill MD Comment: Visit Diagnosis: Diagnoses This Visit Abdominal pain ([id number]) Other ovarian cyst, right side (N83.291) The Pharmacy at [facility] is open Tuesday through Tuesday from 9A [...] alcohol and/or drug addiction problems; contact the [facility] 03/01 Crisis Hotline -Text 2KFEC se [phone]. If you received any narcotics, sedation, or [...] legal documents With: Address: When: Provider, Shazia [address] [place] [address] Within 3 to 5 days Comments: Please call Dr. Wilson office and see if you can be seen sooner than June 18. CT scan shows a possible right ovarian cyst. This needs further evaluation from an [employer] specialist. Continue taking medication as needed for pain. May take Tylenol 1000 mg every 6 hours as needed for pain. May take ibuprofen 600 mg every 8 hours as needed for pain. Medication Information: The exam and treatment you received today in the [facility] Emergency Department were for an urgent problem and are not intended as complete care. It is important for you to follow up with a doctor, nurse practitioner, or physician?s optometric assistant for ongoing care. If your symptoms [...] so we can reach you if necessary. [facility] Emergency Department has provided you with a complete list of medications post discharge. Please inform your waste/materials exchange specialist/provider of your visit and for further instruction [...] ovarian syndrom (more content not included)... Normal [facility] UA w Culture if Ind Standard on 06-11-2024 Breakpoint UA [facility] Comment on above: Performed By: #### 1 [id number] ####[facility] (DEFAULT)[address] [place] [address] Color (U) Yellow [facility] Comment on above: Performed By: #### 1 [id number] ####[facility] (DEFAULT)[address] [place] [address] 33205 Culture? Not Indicated Invalid Interpretation Code [facility] Comment on above: Result Comment: Resu lt created by rule GL_MAGR_ADD_UA_CULT1 Performed By: #### 1 [id number] ####[facility] (DEFAULT)[address] [place] [address] 61456 Glucose (U) [Mass/Vol] Negative [facility] Comment on above: Performed By: #### 1 [id number] ####[facility] (DEFAULT)[address] [place] [address] 34326 Ketones Ql (U) Negative [facility] Comment on above: Performed By: #### 1 [id number] ####[facility] (DEFAULT)[address] [place] [address] 50468 Micro? Not Indicated Invalid Interpretation Code [facility] Comment on above: Result Comment: Resu lt created by rule GL_MAGR_ADD_UA_MICRO Performed By: #### 1 [id number] ####[facility] (DEFAULT)[address] [place] [address] 15514 UA Bilirubin Negative [facility] Comment on above: Performed By: #### 1 [id number] ####[facility] (DEFAULT)[address] [place] [address]47 UA Blood Negative Normal [facility] Comment on above: Performed By: #### 1 [id number] ####[facility] (DEFAULT)[address] [place] [address] 89347 UA Clarity CLEAR Normal CLEAR [facility] Comment on above: Performed By: #### 1 [id number] ####[facility] (DEFAULT)[address] [place] [address] UA Leuk Est Negative Normal NEGATIVE [facility] Comment on above: Performed By: #### 1 [id number] ####[facility] (DEFAULT)[address] [place] [address]37 UA Nitrite Negative Normal NEGATIVE [facility] Comment on above: Performed By: #### 1 [id number] ####[facility] (DEFAULT)[address] [place] [address] UA pH 6.5 Normal 5-8 [facility] Comment on above: Performed By: #### 1 [id number] ####[facility] (DEFAULT)[address] [place] [address] UA Protein Negative Normal [facility] Comment on above: Performed By: #### 1 [id number] ####[facility] (DEFAULT)[address] [place] [address] UA Spec Grav 1.010 Normal 1.001-1.035 [facility] Comment on above: Performed By: #### 1 [id number] ####[facility] (DEFAULT)[address] [place] [address] UA Urobilinogen 0.2 mg/dL Normal 0.2-1.0 [facility] Comment on above: Performed By: #### 1 [id number] ####[facility] (DEFAULT)[address] [place] [address] Urine Source Clean Catch Normal [facility] Comment on above: Performed By: #### 1 [id number] ####[facility] (DEFAULT)[address] [place] [address] US Pelvis Non-OB Completeon 06-11-2024 US Pelvis [...] Rina Rushing MD 06/11/24 6:46 pm Technologist: [facility] US Transvaginalon 06-11-2024 US Transvaginal [...] possibly an endometrioma. Final Dictated by: Rina Rsuhing MD Dictated DT/TM: 06/11/24 6:42 Signed (Electronic Signature): Rina Rushing MD 06/11/24 6:46 pm Technologist: [facility] CBC AND AUTO DIFFon 06-10-20 ABSOLUTE BASOPHIL 0.1 X10E9/L Normal 0.0-0.2 [facility] Comment on above: Performed By: #### C BCA, CMP, 34878-6 #### [facility] ([id number]) [address] [place] [address] ABSOLUTE NEUTROPHIL 3.8 X10E9/L Normal 1.5-6.6 [facility] Comment on above: Performed By: #### C BCA, CMP, 27248-2 #### [facility] ([id number]) [address] [place] [address] Basophils/100 WBC (Bld) 0.9 % Normal [facility] Comment on above: Performed By: #### C BCA, CMP, 59798-9 #### [facility] ([id number]) [address], [address] [place] [address] Eosinophils (Bld) [#/Vol] 0.0 10*3/uL Normal 0.0-0.4 [facility] [place] Comment on above: Performed By: #### C BCA, CMP, 26168-7 #### [facility] ([id number]) [address], [facility] [address] [place] [address] Eosinophils/100 WBC (Bld) 0.6 % Normal [facility] [place] Comment on above: Performed By: #### Leila JOE, CMP, 51305-0 #### [facility] ([id number]) [address], [facility] [address] [place] [address] Erythrocyte distribution width (RBC) [Ratio] 20.0 % High 11.5-15.0 [facility] [place] Comment on above: Performed By: #### Leila BCA, CMP, 91381-0 #### [facility] ([id number]) [address] [address] [place] [address] Hematocrit (Bld) [Volume fraction] 31.9 % Low 35-47 [facility] [place] Comment on above: Performed By: #### C BCA, CMP, 28012-4 #### [facility] ([id number]) [address] [address] [place] [address] Hemoglobin (Bld) [Mass/Vol] 10.2 g/dL Low 11.7-15.5 [facility] [place] Comment on above: Performed By: #### C BCA, CMP, 40907-1 #### [facility] ([id number]) [address] [place] [address] Lymphocytes (Bld) [#/Vol] 3.1 10*3/uL Normal 1.0-3.5 [facility] [place] Comment on above: Performed By: #### Leila JOE CMP, 47399-9 #### [facility] ([id number]) [address], [address] [place] [address] Lymphocytes/100 WBC (Bld) 41.0 % Normal [facility] [place] Comment on above: Performed By: #### Leila JOE CMP, 60222-8 #### [facility] ([id number]) [address], [facility] [address] [place] [address] MCH (RBC) [Entitic mass] 22.8 pg Low 27-34 [facility] [place] Comment on above: Performed By: #### Leila JOE CMP, 58758-6 #### [facility] ([id number]) [address], [address] [place] [address] MCHC (RBC) [Mass/Vol] 31.9 g/dL Low 32-36 Pro [facility] [place] Comment on above: Performed By: #### Leila JOE CMP, 42944-6 #### [facility] ([id number]) [address], [address] [place] [address] MCV (RBC) [Entitic vol] 72 fL Low 80-100 P [facility] Comment on above: Performed By: #### Leila JOE CMP, 23152-0 #### [facility] ([id number]) [address], [address] [place] [address] Monocytes (Bld) [#/Vol] 0.5 10*3/uL Normal 0-0.9 [facility] [place] Comment on above: Performed By: #### Leila JOE, CMP, 17777-5 #### [facility] ([id number]) [address], [address] [place] [address] Monocytes/100 WBC (Bld) 6.6 % Normal P [facility] Comment on above: Performed By: #### C BCA, CMP, 87889-8 #### [facility] ([id number]) [address], [facility] [address] [place] [address] Neutrophils/100 WBC (Bld) 50.9 % Normal [facility] [place] Comment on above: Performed By: #### Leila BCA, CMP, 39334-6 #### [facility] ([id number]) [address], [address] [address] Platelet mean volume (Bld) [Entitic vol] 7.4 fL Normal 7-12 [facility] [place] Comment on above: Performed By: #### Leila BCA, CMP, 30338-3 #### [facility] ([id number]) [address] [address] Platelets (Bld) [#/Vol] 415 10*3/uL Normal 150-450 [facility] [place] Comment on above: Performed By: #### Leila BCA, CMP, 33528-6 #### [facility] ([id number]) [address], [facility] [address] [place] [address] RBC COUNT 4.46 X10E12/L Normal 3.80-5.20 [facility] [place] [facility] Comment on above: Performed By: #### Leila BCA, CMP, 97689-5 #### [facility] ([id number]) [address] [address] WBC (Bld) [#/Vol] 7.5 10*3/uL Normal 4.0-11.0 [facility] Comment on above: Performed By: #### Leila BCA, CMP, 59295-3 #### [facility] ([id number]) [address] [address] [place] [address] CHLAMYDIA/GC BY PCRon 2023 CHLAMYDIA/GC BY PCR [...] are dependent on adequate specimen collection. Normal [facility] [place] Comment on above: Performed By: #### C BCA, CMP #### [facility] ([id number]) [address] [place] [address] COMPREHENSIVE METABOLIC PANE [facility] 06-10-2024 Albumin [Mass/Vol] 4.0 g/dL Normal 3.2-5.3 [facility] Comment on above: Performed By: #### C BCA, CMP, 01262-3 #### [facility] ([id number]) [address], [facility] [address] [place] [address] ALP [Catalytic activity/Vol] 65 U/L Normal 39-130 [facility] [place] Comment on above: Performed By: #### C BCA, CMP, 91431-7 #### [facility] ([id number]) [address] [place] [address] ALT [Catalytic activity/Vol] 32 U/L High 0-31 [facility] [place] Comment on above: Performed By: #### C BCA, CMP, 53187-2 #### [facility] ([id number]) [address] [place] [address] Anion gap [Moles/Vol] 11 mmol/L Normal 5-15 [facility] Comment on above: Performed By: #### C BCA, CMP, 02223-7 #### [facility] ([id number]) [address] [address] [place] [address] AST [Catalytic activity/Vol] 29 U/L Normal 0-41 [facility] [place] Comment on above: Performed By: #### C BCA, CMP, 55960-1 #### [facility] ([id number]) [address] [place] [address] Bilirubin [Mass/Vol] 0.6 mg/dL Normal 0.3-1.2 [facility] Comment on above: Performed By: #### C BCA, CMP, 49146-1 #### [facility] ([id number]) [address], [facility] [address] [place] [address] Calcium [Mass/Vol] 9.0 mg/dL Normal 8.5-10.5 [facility] Comment on above: Performed By: #### C BCA, CMP, 94733-5 #### [facility] ([id number]) [address], [facility] [address] [place] [address] Chloride [Moles/Vol] 105 mmol/L Normal 98-109 [facility] Comment on above: Performed By: #### C BCA, CMP, 17353-0 #### [facility] ([id number]) [address], [facility] [address] [place] [address] CO2 [Moles/Vol] 24 mmol/L Normal 22-32 [facility] [place] Comment on above: Performed By: #### C BCA, CMP, 19291-3 #### [facility] ([id number]) [address] [address] [place] [address] Creatinine [Mass/Vol] 0.76 mg/dL Normal 0.40-1.00 [facility] Comment on above: Result Comment: METH OD TRACEABLE TO IDMS STANDARD Performed By: #### C BCA, CMP, 38397-7 #### [facility] ([id number]) [address] [address] [place] [address] eGFR (CKD-EPI) NON-RACE DEPENDENT >90 Normal >59 [facility] [place] [facility] Comment on above: Result Comment: Reported eGFR is based on the CKD-EPI 2020 equation that does not use a race coefficient. Performed By: #### C BCA, CMP, 58066-6 #### [facility] ([id number]) [address] [place] [address] Glucose [Mass/Vol] 119 mg/dL High 65-99 [facility] Comment on above: Performed By: #### C BCA, CMP, 32493-5 #### [facility] ([id number]) [address] [place] [address] Potassium [Moles/Vol] 3.3 mmol/L Low 3.5-5.0 [facility] Comment on above: Performed By: #### C BCA, CMP, 29593-1 #### [facility] ([id number]) [address] [place] [address] Protein [Mass/Vol] 7.2 g/dL Normal 6.0-8.0 [facility] Comment on above: Performed By: #### C BCA, CMP, 03195-3 #### [facility] ([id number]) [address] [place] [address] Sodium [Moles/Vol] 140 mmol/L Normal 134-146 [facility] Comment on above: Performed By: #### C BCA, CMP, 92245-7 #### [facility] ([id number]) [address] [place] [address] Urea nitrogen [Mass/Vol] 7 mg/dL Normal 5-23 [facility] [place] [facility] Comment on above: Performed By: #### C BCA, CMP, 46897-6 #### [facility] ([id number]) [address] [place] [address] Follitropin Qnon 06-10-2024 FOLLICLE STIM HORMONE 6.7 mIU/mL Normal [facility] Comment on above: Result Comment: NORMAL FEMALE Luteal 1.8-5.1 mIU/mL Follicular 3.8-8.8 mIU/mL Mid Cycle 4.5-22.5 mIU/mL Post Seanor 16.7-113.6 mIU/mL Performed By: #### C BCA, [facility], 10863-0 #### [facility] ([id number]) [address] [place] [address], [address] [place] [address] URN MACROSCOPIC NURon 2023 BILIRUBIN AUDREY Small Abnormal NEG [facility] [place] [facility] Comment on above: Performed By: #### N UM #### [facility] ([id number]) [address] [place] [address] BLOOD/HGB AUDREY Negative Normal NEG [facility] [place] [facility] Comment on above: Performed By: #### N UM #### [facility] ([id number]) [address] [place] [address] GLUCOSE AUDREY Negative Normal NEG [facility] [place] [facility] Comment on above: Performed By: #### N UM #### [facility] ([id number]) [address] [place] [address] KETONES AUDREY 15 mg/dL Abnormal NEG [facility] [place] [facility] Comment on above: Performed By: #### N UM #### [facility] ([id number]) [address] [place] [address] LEUKOCYTE ESTERASE AUDREY Negative Normal NEG Pr [facility] Comment on above: Performed By: #### N UM #### [facility] ([id number]) [address] [place] [address] NITRITE AUDREY Negative Normal NEG [facility] [place] [facility] Comment on above: Performed By: #### N UM #### [facility] ([id number]) [address] [place] [address] PH AUDREY 5.5 Normal 5.0-8.5 [facility] [place] [facility] Comment on above: Performed By: #### N UM #### [facility] ([id number]) [address] [place] [address] PROTEIN AUDREY Trace Abnormal NEG [facility] [place] [facility] Comment on above: Performed By: #### N UM #### [facility] ([id number]) [address] [place] [address] SPECIFIC GRAVITY AUDREY >=1.030 Normal 1.003-1.035 [facility] Comment on above: Performed By: #### N UM #### [facility] ([id number]) [address] [place] [address] UROBILINOGEN AUDREY 0.2 eu/dL Normal <1.1 [facility] Comment on above: Performed By: #### N UM #### [facility] ([id number]) [address] [place] [address] US PELVIC WITH TRANSVAGINALo n 06-10-2024 US [...] El MD on 06/10/2024 10:18 AM Normal [facility] [place] [facility] Urine collection deviceon ER EXTRA URINES ER EXTRA URINE ORDER IN PROCESS Normal [facility] [place] [facility] VAGINITIS PANEL PCRon 2023 VAGINITIS PANEL PCR [...] clinical presentation to determine patient diagnosis. Normal [facility] [place] [facility] Comment on above: Performed By: #### V PPCR #### [facility] ([id number]) [address] [place] [address], [address] [place] [address] CBC AND AUTO DIFFon 06-09-20 ABSOLUTE BASOPHIL 0.1 X10E9/L Normal 0.0-0.2 [facility] Comment on above: Performed By: #### C HEATH [facility], 3040-3, 04224-2, #### [facility] ([id number]) [address] [place] [address] ABSOLUTE NEUTROPHIL 2.7 X10E9/L Normal 1.5-6.6 [facility] Comment on above: Performed By: #### C STEVE JOE, 3040-3, 28279-3, #### [facility] ([id number]) [address] [place] [address] Basophils/100 WBC (Bld) 1.0 % Normal P [facility] Comment on above: Performed By: #### C BCA, CMP, 3040-3, 43037-2, 1985-10, #### [facility] ([id number]) [address] [place] [address] Eosinophils (Bld) [#/Vol] 0.1 10*3/uL Normal 0.0-0.4 [facility] Comment on above: Performed By: #### C BCA, CMP, 0-3, 36939-6, 1985-10, #### [facility] ([id number]) [address] [place] [address] Eosinophils/100 WBC (Bld) 1.0 % Normal [facility] Comment on above: Performed By: #### C HEATH, CMP, 0-3, , 1987-10, #### [facility] ([id number]) [address] [place] [address] Erythrocyte distribution width (RBC) [Ratio] 20.2 % High 11.5-15.0 [facility] Comment on above: Performed By: #### C BCA, CMP, 0-3, , 1987-10, #### [facility] ([id number]) [address] [place] [address] Hematocrit (Bld) [Volume fraction] 31.2 % Low 35-47 [facility] Comment on above: Performed By: #### C BCA, CMP, 3040-3, 47390-3, 1987-10, #### [facility] ([id number]) [address] [place] [address] Hemoglobin (Bld) [Mass/Vol] 10.2 g/dL Low 11.7-15.5 [facility] Comment on above: Performed By: #### C BCA, CMP, 0-3, 50203-6, 1987-10, #### [facility] ([id number]) [address] [place] [address] Lymphocytes (Bld) [#/Vol] 2.6 10*3/uL Normal 1.0-3.5 [facility] Comment on above: Performed By: #### C HEATH [facility], 0-3, , 1987-10, #### [facility] ([id number]) [address] [place] [address] Lymphocytes/100 WBC (Bld) 44.6 % Normal [facility] Comment on above: Performed By: #### C HEATH [facility], 3039-3, , 1987-10, #### [facility] ([id number]) [address] [place] [address] MCH (RBC) [Entitic mass] 23.5 pg Low 27-34 [facility] Comment on above: Performed By: #### C HEATH, [facility], 0-3, , 1987-10, #### [facility] ([id number]) [address] [place] [address] MCHC (RBC) [Mass/Vol] 32.8 g/dL Normal 32-36 [facility] Comment on above: Performed By: #### C HEATH, CMP, 0-3, , 1987-10, #### [facility] ([id number]) [address] [place] [address] MCV (RBC) [Entitic vol] 72 fL Low 80-100 P [facility] Comment on above: Performed By: #### C HEATH, CMP, 3040-3, , 1987-10, #### [facility] ([id number]) [address] [place] [address] Monocytes (Bld) [#/Vol] 0.5 10*3/uL Normal 0-0.9 [facility] Comment on above: Performed By: #### C BCA, CMP, 3040-3, 93311-7, 1987-10, #### [facility] ([id number]) [address] [place] [address] Monocytes/100 WBC (Bld) 7.7 % Normal [facility] Comment on above: Performed By: #### C BCA, CMP, 3040-3, 01155-9, 1987-10, #### [facility] ([id number]) [address] [place] [address] Neutrophils/100 WBC (Bld) 45.7 % Normal [facility] Comment on above: Performed By: #### C BCA, CMP, 3040-3, 59976-2, 1987-10, #### [facility] ([id number]) [address] [place] [address] Platelet mean volume (Bld) [Entitic vol] 7.5 fL Normal 7-12 [facility] Comment on above: Performed By: #### C BCA, CMP, 3040-3, 79364-7, 1987-10, #### [facility] ([id number]) [address] [place] [address] Platelets (Bld) [#/Vol] 438 10*3/uL Normal 150-450 [facility] Comment on above: Performed By: #### C BCA, CMP, 3040-3, 34499-1, 1987-10, #### [facility] ([id number]) [address] [place] [address] RBC COUNT 4.35 X10E12/L Normal 3.80-5.20 [facility] Comment on above: Performed By: #### C BCA, CMP, 3040-3, 78443-9, 1987-10, #### [facility] ([id number]) [address] [place] [address] 44180 WBC (Bld) [#/Vol] 5.9 10*3/uL Normal 4.0-11.0 [facility] Comment on above: Performed By: #### C BCA, CMP, 3040-3, 42003-5, 1987-10, #### [facility] ([id number]) [address] [place] [address]180 COMPREHENSIVE METABOLIC PANE Van 06-09-2024 Albumin [Mass/Vol] 4.1 g/dL Normal 3.2-5.3 [facility] Comment on above: Performed By: #### C BCA, CMP, 3040-3, 72804-3, 1987-10, #### [facility] ([id number]) [address] [place] [address] 63115 ALP [Catalytic activity/Vol] 68 U/L Normal 39-130 [facility] Comment on above: Performed By: #### C BCA, CMP, 3040-3, 53961-3, 1987-10, #### [facility] ([id number]) [address] [place] [address] 93040 ALT [Catalytic activity/Vol] 36 U/L High 0-31 [facility] [facility] Comment on above: Performed By: #### C BCA, CMP, 3040-3, 99538-9, 1987-10, #### [facility] ([id number]) [address] [place] [address] 36806 Anion gap [Moles/Vol] 9 mmol/L Normal 5-15 [facility] Comment on above: Performed By: #### C BCA, CMP, 3040-3, 15408-7, 1987-10, #### [facility] ([id number]) [address] [place] [address] 38722 AST [Catalytic activity/Vol] 30 U/L Normal 0-41 [facility] Comment on above: Performed By: #### C BCA, CMP, 3040-3, 66148-8, 1987-10, #### [facility] ([id number]) [address] [place] [address] 43102 Bilirubin [Mass/Vol] 0.7 mg/dL Normal 0.3-1.2 [facility] Comment on above: Performed By: #### C BCA, CMP, 3040-3, 54790-3, 1987-10, #### [facility] ([id number]) [address] [place] [address] 59055 Calcium [Mass/Vol] 9.3 mg/dL Normal 8.5-10.5 [facility] Comment on above: Performed By: #### C BCA, CMP, 3040-3, 22209-9, 1987-10, #### [facility] ([id number]) [address] [place] [address] 69263 Chloride [Moles/Vol] 108 mmol/L Normal 98-109 [facility] Comment on above: Performed By: #### C BCA, CMP, 3040-3, 25794-5, 1987-10, #### [facility] ([id number]) [address] [place] [address] 24568 CO2 [Moles/Vol] 22 mmol/L Normal 22-32 [facility] Comment on above: Performed By: #### C BCA, CMP, 3040-3, 39370-5, 1987-10, #### [facility] ([id number]) [address] [place] [address] 73505 Creatinine [Mass/Vol] 0.75 mg/dL Normal 0.40-1.00 [facility] Comment on above: Result Comment: METH OD TRACEABLE TO IDMS STANDARD Performed By: #### C STEVE JOE, 3040-3, 99279-5, 1987-10, #### [facility] ([id number]) [address] [place] [address] 37813 eGFR (CKD-EPI) NON-RACE DEPENDENT >90 Normal >59 [facility] Comment on above: Result Comment: Reported eGFR is based on the CKD-EPI 2020 equation that does not use a race coefficient. Performed By: #### C STEVE JOE, 3040-3, 71375-6, 1987-10, #### [facility] ([id number]) [address] [place] [address] 79380 Glucose [Mass/Vol] 103 mg/dL High 65-99 [facility] Comment on above: Performed By: #### C STEVE JOE, 0-3, , 1987-10, #### [facility] ([id number]) [address] [place] [address] 66075 Potassium [Moles/Vol] 3.8 mmol/L Normal 3.5-5.0 [facility] Comment on above: Performed By: #### C STEVE JOE, 0-3, , 1987-10, #### [facility] ([id number]) [address] [place] [address] 28005 Protein [Mass/Vol] 7.5 g/dL Normal 6.0-8.0 [facility] Comment on above: Performed By: #### C STEVE JOE, 3040-3, , 1987-10, #### [facility] ([id number]) [address] [place] [address] 16613 Sodium [Moles/Vol] 139 mmol/L Normal 134-146 [facility] Comment on above: Performed By: #### C HEATH, CMP, 3040-3, 57336-4, 1987-10, #### [facility] ([id number]) [address] [place] [address] 40785 Urea nitrogen [Mass/Vol] 7 mg/dL Normal 5-23 [facility] Comment on above: Performed By: #### C HEATH, CMP, 3040-3, 49049-5, 1987-10, #### [facility] ([id number]) [address] [place] [address] 06224 LIPASEon 06-09-2024 Lipase [Catalytic activity/Vol] 37 U/L Normal 17-40 [facility] Comment on above: Performed By: #### C HEATH, CMP, 3040-3, 66997-0, 1987-10, #### [facility] ([id number]) [address] [place] [address] 18202 Lactate (P arely) [Moles/Vol]o n 06-09-2024 LACTATE W/REFLEX 1.2 mmol/L Normal 0.4-2.0 [facility] Comment on above: Result Comment: Result did not trigger repeat Lactate, re-order if needed. Performed By: #### C HEATH, CMP, 3040-3, 59470-8, 1987-10, #### [facility] ([id number]) [address] [place] [address] 90204 URINE CULTUREon 06-09-2024 Bacteria identified Cx Nom (U) CULTURE RESULTS 10-50,000 ORGANISMS/mL NORMAL UROGENITAL RASHID Normal [facility] Comment on above: Performed By: #### C HEATH, CMP, 3040-3, 09359-8, 1987-10, #### [facility] ([id number]) [address] [place] [address] 18684 URN MACROSCOPIC NURon 2023 BILIRUBIN AUDREY Negative Normal NEG [facility] Comment on above: Performed By: #### C BCA, CMP, 3040-3, 09817-6, 1987-10, #### [facility] ([id number]) [address] [place] [address] [place] [address] BLOOD/HGB AUDREY Trace Abnormal NEG [facility] Comment on above: Performed By: #### C BCA, CMP, 0-3, 89871-9, 1987-10, #### [facility] ([id number]) [address] [place] [address] 78517 GLUCOSE AUDREY Negative Normal NEG [facility] Comment on above: Performed By: #### C BCA, CMP, 0-3, 26745-1, 1987-10, #### [facility] ([id number]) [address] [place] [address] 86828 KETONES AUDREY Negative Normal NEG [facility] Comment on above: Performed By: #### C BCA, CMP, 3040-3, 74080-2, 1987-10, #### [facility] ([id number]) [address] [place] [address] [place] [address] LEUKOCYTE ESTERASE AUDREY Trace Abnormal NEG [facility] Comment on above: Performed By: #### C BCA, CMP, 3040-3, 71333-0, 1987-10, #### [facility] ([id number]) [address] [place] [address] [place] [address] NITRITE AUDREY Negative Normal NEG [facility] Comment on above: Performed By: #### C BCA, CMP, 0-3, 13047-7, 1987-10, #### [facility] ([id number]) [address] [place] [address] 03029 PH AUDREY 6.5 Normal 5.0-8.5 [facility] Comment on above: Performed By: #### C BCA, CMP, 3040-3, 04149-2, 1987-10, #### [facility] ([id number]) [address] [place] [address] 03415 PROTEIN AUDREY Negative Normal NEG [facility] Comment on above: Performed By: #### C BCA, CMP, 3040-3, 77563-2, 1987-10, #### [facility] ([id number]) [address] [place] [address] 02004 SPECIFIC GRAVITY AUDREY 1.010 Normal 1.003-1.035 [facility] Comment on above: Performed By: #### C BCA, CMP, 3040-3, 73264-5, 1987-10, #### [facility] ([id number]) [address] [place] [address] 06949 UROBILINOGEN AUDREY 1.0 eu/dL Normal <1.1 [facility] Comment on above: Performed By: #### C BCA, CMP, 3040-3, 40527-6, 1987-10, #### [facility] ([id number]) [address] [place] [address] 33059 .Auto Diff - Auto Candler % 5 % Normal 06-24 [facility] Comment on above: Performed By: #### 1 [id number], 6252189, 70376448, 9302209467, [id number] ####[facility] (DEFAULT)[address] [place] [address] 33071 Baso Abs# 0.1 x10 Normal 0.0-0.2 [facility] Comment on above: Performed By: #### 1 422121566, 2675127, 78688921, 4546680761, [id number] ####[facility] (DEFAULT)[address] [place] [address] 55513 Basophils/100 WBC (Bld) 1.0 % Normal 0.2-2.0 [facility] Comment on above: Performed By: #### 1 279817712, 1150303, 02590394, 2935485634, 1354154238 ####[facility] (DEFAULT)[address] [place] [address] 14148 Eos Abs# 0.0 x10 Normal 0.0-0.4 [facility] Comment on above: Performed By: #### 1 325019797, 0097023, 70562711, 4307691177, 3944837635 ####[facility] (DEFAULT)[address] [place] [address] 05853 Eosinophils/100 WBC (Bld) 0.4 % Low 0.9-4.0 [facility] Comment on above: Performed By: #### 1 682812622, 9993705, 47433775, 9807661343, 8309157237 ####[facility] (DEFAULT)[address] [place] [address] 43035 Lymph Abs# 1.7 x10 Normal 1.3-2.9 [facility] Comment on above: Performed By: #### 1 627573341, 8538239, 39476629, 8298216778, 5183206438 ####[facility] (DEFAULT)[address] [place] [address] 74393 Lymphocytes/100 WBC (Bld) 27 % Normal 14-48 [facility] Comment on above: Performed By: #### 1 940897358, 1863361, 96761177, 2211712923, 3222726993 ####[facility] (DEFAULT)[address] [place] [address] 80979 Candler Abs# 0.3 x10 Normal 0.0-0.8 [facility] Comment on above: Performed By: #### 1 329805882, 5680411, 88409987, 4054656932, 5216117683 ####[facility] (DEFAULT)[address] [place] [address] Neut Abs# 4.2 x10 Normal 1.5-9.2 [facility] Comment on above: Performed By: #### 1 542907710, 5330921, 53511969, 7860955591, 5358542571 ####[facility] (DEFAULT)[address] [place] [address] Neutrophils/100 WBC (Bld) 66 % Normal 44-88 [facility] Comment on above: Performed By: #### 1 400450666, 1794960, 04842255, 4697262417, 3792416359 ####[facility] (DEFAULT)[address] [place] [address] CBC w/ Auto Diffon 4 Erythrocyte distribution width (RBC) [Ratio] 20.2 % High 11.5-15.0 [facility] Comment on above: Performed By: #### 1 [id number], 0058534, 17862298, 9770389500, 8300501455 ####[facility] (DEFAULT)[address] [place] [address] Hematocrit (Bld) [Volume fraction] 34.5 % Normal 33.7-40.4 [facility] Comment on above: Performed By: #### 1 723346979, 7642876, 20214702, 9843681518, 0972772826 ####[facility] (DEFAULT)[address] [place] [address] Hemoglobin (Bld) [Mass/Vol] 10.9 g/dL Low 11.3-15.9 [facility] Comment on above: Performed By: #### 1 739811549, 9551739, 38031370, 0936141989, 1389573870 ####[facility] (DEFAULT)[address] [place] [address] Man Diff? Auto Invalid Interpretation Code [facility] Comment on above: Performed By: #### 1 [id number], 4448994, 12351708, 8754723271, 8012522720 ####[facility] (DEFAULT)[address] [place] [address] MCH (RBC) [Entitic mass] 23 pg Low 24-34 [facility] Comment on above: Performed By: #### 1 263520670, 9239838, 33961037, 4378982337, 3338500153 ####[facility] (DEFAULT)[address] [place] [address] 02474 MCHC (RBC) [Mass/Vol] 32 g/dL Normal 26-37 [facility] Comment on above: Performed By: #### 1 100144973, 8334100, 93686861, 5354617084, 7322999294 ####[facility] (DEFAULT)[address] [place] [address] MCV (RBC) [Entitic vol] 72 fL Low 81-100 [facility] Comment on above: Performed By: #### 1 317581467, 6422496, 87669676, 4977067885, 5481292631 ####[facility] (DEFAULT)[address] [place] [address] Platelet 457 x10 High 138-427 [facility] Comment on above: Performed By: #### 1 787419169, 9619346, 16998222, 6998623061, 6581942734 ####[facility] (DEFAULT)[address] [place] [address] Platelet mean volume (Bld) [Entitic vol] 7.5 fL Normal 6.3-10.2 [facility] Comment on above: Performed By: #### 1 705205917, 8838113, 22883248, 8671982546, 3971150263 ####[facility] (DEFAULT)[address] [place] [address] RBC 4.77 x10 Normal 3.70-5.30 [facility] Comment on above: Performed By: #### 1 187735798, 3696350, 33244764, 5809492973, 5201783912 ####[facility] (DEFAULT)[address] [place] [address] WBC 6.4 x10 Normal 3.5-10.5 [facility] Comment on above: Performed By: #### 1 396820285, 7888338, 21242792, 4946122265, 3027105220 ####[facility] (DEFAULT)[address] [place] [address] Standardon 06-08-2024 eGFR Non AA >[address] [facility] Comment on above: Performed By: #### 1 843143559, 7837333, 54211099, 3118826185, 8091289827 ####[facility] (DEFAULT)[address] [place] [address] 78821 eGFR AA >[address] [facility] Comment on above: Performed By: #### 1 021151398, 6332618, 92951881, 6685511311, 7971601577 ####[facility] (DEFAULT)[address] [place] [address] 27182 Albumin [Mass/Vol] 4.3 g/dL Normal 3.5-5.0 [facility] Comment on above: Performed By: #### 1 222062198, 5497312, 98801406, 4663237833, 0598925999 ####[facility] (DEFAULT)[address] [place] [address] 10594 Albumin/Globulin [Mass ratio] 1.0 {ratio} Low 1.4-2.6 [facility] Comment on above: Performed By: #### 1 379638440, 9465588, 72754715, 3956747667, 7768004287 ####[facility] (DEFAULT)[address] [place] [address] 71885 Alk Phos 63 IU/L Normal 32-91 [facility] Comment on above: Performed By: #### 1 025240700, 3194286, 49137147, 3175266105, 3260208759 ####[facility] (DEFAULT)[address] [place] [address] 67033 ALT [Catalytic activity/Vol] 30.0 U/L Normal 14.0-54.0 [facility] Comment on above: Performed By: #### 1 205656943, 9892241, 08969645, 5590926663, 6605365591 ####[facility] (DEFAULT)[address] [place] [address] 87152 Anion gap [Moles/Vol] 12.9 mmol/L Normal 5.0-19.0 [facility] Comment on above: Performed By: #### 1 525130073, 7583297, 70357096, 9179173304, 6857339902 ####[facility] (DEFAULT)[address] [place] [address] 08868 AST [Catalytic activity/Vol] 22 U/L Normal 15-41 [facility] Comment on above: Performed By: #### 1 747905842, 7602784, 02988049, 4320938385, 9732367096 ####[facility] (DEFAULT)[address] [place] [address] 45339 Bili Total 0.5 mg/dL Normal 0.3-1.2 [facility] Comment on above: Performed By: #### 1 201508292, 3968738, 47175104, 6742096221, 7916064487 ####[facility] (DEFAULT)[address] [place] [address] 00227 Calcium [Mass/Vol] 9.3 mg/dL Normal 8.9-10.3 [facility] Comment on above: Performed By: #### 1 532155181, 9130100, 91203299, 4214429964, 9560882559 ####[facility] (DEFAULT)[address] [place] [address] 19506 Chloride [Moles/Vol] 106 mmol/L Normal 101-111 [facility] Comment on above: Performed By: #### 1 209136317, 4561718, 71953454, 1773900728, 5527732217 ####[facility] (DEFAULT)[address] [place] [address] 58418 CO2 [Moles/Vol] 22 mmol/L Normal 21-32 [facility] Comment on above: Performed By: #### 1 974943383, 1412012, 19034016, 4817345382, 6458705325 ####[facility] (DEFAULT)[address] [place] [address] 70627 Creatinine [Mass/Vol] 0.70 mg/dL Normal 0.60-1.30 [facility] Comment on above: Performed By: #### 1 708153111, 6193339, 09479084, 3233028371, 9129539256 ####[facility] (DEFAULT)[address] [place] [address] 14132 Globulin (S) [Mass/Vol] 4.0 g/dL Normal 1.5-4.3 [facility] Comment on above: Performed By: #### 1 556049219, 2284198, 24752718, 5487236118, 7912449591 ####[facility] (DEFAULT)[address] [place] [address] 74106 Glucose [Mass/Vol] 109.0 mg/dL Normal 74.0-118.0 [facility] Comment on above: Performed By: #### 1 364593818, 3254440, 31320364, 9123061834, 7284802924 ####[facility] (DEFAULT)[address] [place] [address] 56970 Osmolality 272 mOsm/L Invalid Interpretation Code [facility] Comment on above: Performed By: #### 1 787696664, 7057032, 99563203, 2811878020, 3261077536 ####[facility] (DEFAULT)[address] [place] [address] 38796 Potassium [Moles/Vol] 3.9 mmol/L Normal 3.6-5.1 [facility] Comment on above: Performed By: #### 1 448800054, 7385505, 85500413, 2584146400, 6566801289 ####[facility] (DEFAULT)[address] [place] [address] 71140 Protein [Mass/Vol] 8.3 g/dL High 6.5-8.1 [facility] Comment on above: Performed By: #### 1 198207236, 5162499, 07618662, 3843238995, 5630130827 ####[facility] (DEFAULT)[address] [place] [address] 08570 Sodium [Moles/Vol] 137.0 mmol/L Normal 136.0-144.0 [facility] Comment on above: Performed By: #### 1 406819098, 7068386, 89151254, 7893900063, 1695404869 ####[facility] (DEFAULT)[address] [place] [address] Urea nitrogen [Mass/Vol] 7 mg/dL Low - [facility] Comment on above: Performed By: #### 1 151175848, 7490443, 56960567, 2302799687, 8431988338 ####[facility] (DEFAULT)[address] [place] [address] Urea nitrogen/Creatinine [Mass ratio] 10.0 mg/mg Normal 4.6-16.2 [facility] Comment on above: Performed By: #### 1 364177946, 3210753, 56219193, 6017317607, 1722149354 ####[facility] (DEFAULT)[address] [place] [address] CT Abdomen/Pelvis w/ Contras ton 06-08-2024 CT [...] Infante MD 06/08/24 9:36 pm Technologist: PREMA [facility] ED Clinical Summaryon 2023 ED Clinical Summary [facility] Emergency Department [address] [place] [address] 16233 ED Clinical Summary PERSON INFORMATION Name: ANTONIA NOYOLA Age: 39 Years Sex: FEMALE : 1985 MRN: Acct#: Visit Reason: Flank pain; Abdominal pain; ABDOMINAL PAIN Arrival: 06/08/2024 17:53:36 Discharge: 06/08/2024 22:16:00 LOS: 000 04:23 Check In: 06/08/2024 17:53:36 Checkout:06/08/2024 22:16:00 Address: [address] [place] [address] [place] [address] PCP: Provider, None PROVIDER INFORMATION Provider Role Assigned Unassigned Jasmyn Magana MD ED Provider 06/08/2024 18:36:34 Kendra Tobar AUTOMOBILE MECHANIC HELPER Nurse 06/08/2024 18:45:19 Radha Shabazz AUTOMOBILE MECHANIC HELPER Nurse 06/08/2024 19:29:52 Sandeep Corea MD ED [...] er verbalizes understanding of instructions given Comment: [facility] ED Patient Summaryon 024 ED Patient Summary [facility] - Emergency Department [address] [place] [address] PATIENT DISCHARGE INSTRUCTIONS Patient Information Name: ANTONIA NOYOLA Age: 39 Years Date of : 1985 Reason For Visit: Flank pain; Abdominal pain; ABDOMINAL PAIN Arrival Time: 06/08/2024 17:53:36 Primary Care Physician: Provider, None Attending Physician: Jasmyn Magana MD Comment: Visit Diagnosis: Diagnoses This Visit Abdominal pain ([id number]) Abdominal pain (R10.9) Abdominal pain in female patient (R10.9) Flank pain ([id number]) The Pharmacy at [facility] is open Tuesday through Tuesday from 9A [...] alcohol and/or drug addiction problems; contact the [facility] Formerly [facility] 03/01 Crisis Hotline -Text 1CTSC jm [id number]. If you received any narcotics, sedation, or [...] and treatment you received today in the [facility] Emergency Department were for an urgent problem and are not intended as complete care. It is important for you to follow up with a doctor, nurse practitioner, or physician?s optometric assistant for ongoing care. If your symptoms [...] so we can reach you if necessary. [facility] Emergency Department has provided you with a complete list of medications post discharge. Please inform your waste/materials exchange specialist/provider of your visit and for further instruction [...] found Patient Education Endometriosis Follow-up with your ELECTRICIAN SUPERVISOR SUBSTATION to review this emergency department visit and [...] bleeding during menstrual (more content not included)... [facility] Extra Redon 06-08-2024 Tube Collected Yes Invalid Interpretation Code [facility] Comment on above: Performed By: #### 1 [id number], 0444850, 21986658, 3307267836, [id number] ####[facility] (DEFAULT)[address] [place], [place] [address] Test Urine 1on U Preg Negative [facility] Comment on above: Performed By: #### 1 [id number], 496123060 #### [facility] (DEFAULT) [address] [place] [address] 02661 U Preg Internal Control Pass [facility] Comment on above: Performed By: #### 1 295922721, [id number] #### [facility] (DEFAULT) [address] [place] [address] 27727 Progress Note - Nurseon 05-14 Progress Note [...] on: 06/08/2024 22:16 EST] Radha Shabazz RN [facility] UA w Culture if Ind Standard on 06-08-2024 Breakpoint UA [facility] Comment on above: Performed By: #### 1 735893470, [id number] #### [facility] (DEFAULT) [address] [place] [address] 46812 Color (U) Straw [facility] Comment on above: Performed By: #### 1 [id number], [id number] #### [facility] (DEFAULT) [address] [place] [address] 66862 Culture? Not Indicated Invalid Interpretation Code [facility] Comment on above: Result Comment: Resu lt created by rule GL_MAGR_ADD_UA_CULT1 Result created by rule GL_MAGR_ADD_UA_CULT1 Performed By: #### 1 [id number], 843754473 #### [facility] (DEFAULT) [address] [place] [address] Glucose (U) [Mass/Vol] Negative [facility] Comment on above: Performed By: #### 1 693600578, 189383967 #### [facility] (DEFAULT) [address] [place] [address] 91844 Ketones Ql (U) Negative [facility] Comment on above: Performed By: #### 1 830003233, 520250492 #### [facility] (DEFAULT) [address] [place] [address] 45338 Micro? Not Indicated Invalid Interpretation Code [facility] Comment on above: Result Comment: Resu lt created by rule GL_MAGR_ADD_UA_MICRO Result created by rule GL_MAGR_ADD_UA_MICRO Performed By: #### 1 [id number], [id number] #### [facility] (DEFAULT) [address] [place] [address] 53455 UA Bilirubin Negative [facility] Comment on above: Performed By: #### 1 [id number], [id number] #### [facility] (DEFAULT) [address] [place] [address] 07086 UA Blood Negative Normal [facility] Comment on above: Performed By: #### 1 862642154, 014742746 #### [facility] (DEFAULT) [address] [place] [address] 31016 UA Clarity CLEAR Normal CLEAR [facility] Comment on above: Performed By: #### 1 317569739, 901559812 #### [facility] (DEFAULT) [address] [place] [address] 08444 UA Leuk Est Negative Normal NEGATIVE [facility] Comment on above: Performed By: #### 1 743690256, 428116200 #### [facility] (DEFAULT) [address] [place] [address] 68846 UA Nitrite Negative Normal NEGATIVE [facility] Comment on above: Performed By: #### 1 405204846, 692392273 #### [facility] (DEFAULT) [address] [place] [address] 06054 UA pH 7.0 Normal 5-8 [facility] Comment on above: Performed By: #### 1 090599270, [id number] #### [facility] (DEFAULT) [address] [place] [address] 45122 UA Protein Negative Normal NEGATIVE [facility] Comment on above: Performed By: #### 1 535564338, 465972536 #### [facility] (DEFAULT) [address] [place] [address] 20308 UA Spec Grav <=1.005 Normal 1.001-1.035 [facility] Comment on above: Performed By: #### 1 185371165, 956847916 #### [facility] (DEFAULT) [address] [place] [address] 98420 UA Urobilinogen 0.2 mg/dL Normal 0.2-1.0 [facility] Comment on above: Performed By: #### 1 [id number], [id number] #### [facility] (DEFAULT) [address] [place] [address]3363 Urine Source Clean Catch Normal [facility] Comment on above: Performed By: #### 1 [id number], [id number] #### [facility] (DEFAULT) [address] [place] [address] 73971 CBC AND AUTO DIFFon 12-24-20 24 ABSOLUTE BASOPHIL 0.1 X10E9/L Normal 0.0-0.2 [facility] Comment on above: Performed By: #### C BCA, CMP, 3040-3, 21136-0, 1987-10, #### [facility] ([id number]) [address] [place] [address]18 ABSOLUTE NEUTROPHIL 4.9 X10E9/L Normal 1.5-6.6 [facility] Comment on above: Performed By: #### C BCA, CMP, 0-3, 43725-1, 1987-10, #### [facility] ([id number]) [address] [place] [address] 44950 Basophils/100 WBC (Bld) 0.9 % Normal [facility] Comment on above: Performed By: #### C BCA, CMP, 0-3, , 1987-10, #### [facility] ([id number]) [address] [place] [address]43 Eosinophils (Bld) [#/Vol] 0.1 10*3/uL Normal 0.0-0.4 [facility] [facility] Comment on above: Performed By: #### C BCA, CMP, 0-3, , 1987-10, #### [facility] ([id number]) [address] [place] [address] 88267 Eosinophils/100 WBC (Bld) 0.7 % Normal [facility] Comment on above: Performed By: #### C BCA, CMP, 3040-3, 50159-8, 1987-10, #### [facility] ([id number]) [address] [place] [address] 18727 Erythrocyte distribution width (RBC) [Ratio] 19.6 % High 11.5-15.0 [facility] Comment on above: Performed By: #### C BCA, CMP, 3040-3, 31962-0, 1987-10, #### [facility] ([id number]) [address] [place] [address] 34585 Hematocrit (Bld) [Volume fraction] 35.6 % Normal 35-47 [facility] Comment on above: Performed By: #### C STEVE JOE, 0-3, , 1987-10, #### [facility] ([id number]) [address] [place] [address] 14310 Hemoglobin (Bld) [Mass/Vol] 11.2 g/dL Low 11.7-15.5 [facility] Comment on above: Performed By: #### C HEATH [facility], 3039-, , 1987-10, #### [facility] ([id number]) [address] [place] [address] 25121 Lymphocytes (Bld) [#/Vol] 2.5 10*3/uL Normal 1.0-3.5 [facility] Comment on above: Performed By: #### C HEATH [facility], 3039-3, , 1987-10, #### [facility] ([id number]) [address] [place] [address] 97854 Lymphocytes/100 WBC (Bld) 31.5 % Normal [facility] Comment on above: Performed By: #### Leila JOE, [facility], 3039-3, , 1987-10, #### [facility] ([id number]) [address] [place] [address] 40043 MCH (RBC) [Entitic mass] 22.7 pg Low 27-34 [facility] Comment on above: Performed By: #### Leila JOE, CMP, 0-3, , 1987-10, #### [facility] ([id number]) [address] [place] [address] 96292 MCHC (RBC) [Mass/Vol] 31.4 g/dL Low 32-36 [facility] Comment on above: Performed By: #### C BCA, CMP, 3040-3, 61157-7, 1987-10, #### [facility] ([id number]) [address] [place] [address] 28928 MCV (RBC) [Entitic vol] 72 fL Low 80-100 [facility] Comment on above: Performed By: #### C BCA, CMP, 3040-3, 87306-2, 1987-10, #### [facility] ([id number]) [address] [place] [address] 71770 Monocytes (Bld) [#/Vol] 0.4 10*3/uL Normal 0-0.9 [facility] Comment on above: Performed By: #### C BCA, CMP, 0-3, , 1987-10, #### [facility] ([id number]) [address] [place] [address] 79574 Monocytes/100 WBC (Bld) 5.4 % Normal [facility] Comment on above: Performed By: #### C BCA, CMP, 3040-3, 76335-4, 1987-10, #### [facility] ([id number]) [address] [place] [address] 20458 Neutrophils/100 WBC (Bld) 61.5 % Normal [facility] Comment on above: Performed By: #### C BCA, CMP, 3040-3, 53148-1, 1987-10, #### [facility] ([id number]) [address] [place] [address] 14087 Platelet mean volume (Bld) [Entitic vol] 7.7 fL Normal 7-12 [facility] Comment on above: Performed By: #### C BCA, CMP, 3040-3, 63228-1, 1987-10, #### [facility] ([id number]) [address] [place] [address] 22012 Platelets (Bld) [#/Vol] 451 10*3/uL High 150-450 [facility] Comment on above: Performed By: #### C BCA, CMP, 3040-3, 41878-9, 1987-10, #### [facility] ([id number]) [address] [place] [address] 41556 RBC COUNT 4.93 X10E12/L Normal 3.80-5.20 [facility] Comment on above: Performed By: #### C BCA, CMP, 3040-3, 96400-8, 1987-10, #### [facility] ([id number]) [address] [place] [address] 52143 WBC (Bld) [#/Vol] 8.0 10*3/uL Normal 4.0-11.0 [facility] Comment on above: Performed By: #### C BCA, CMP, 3040-3, 40389-7, 1987-10, #### [facility] ([id number]) [address] [place] [address] 53196 COMPREHENSIVE METABOLIC PANE Van 06-05-2024 Albumin [Mass/Vol] 4.6 g/dL Normal 3.2-5.3 [facility] Comment on above: Performed By: #### C BCA, CMP, 3040-3, 51056-5, 1987-10, #### [facility] ([id number]) [address] [place] [address] 71204 ALP [Catalytic activity/Vol] 67 U/L Normal 39-130 [facility] Comment on above: Performed By: #### C BCA, CMP, 3040-3, 76822-4, 1987-10, #### [facility] ([id number]) [address] [place] [address] 69377 ALT [Catalytic activity/Vol] 14 U/L Normal 0-31 [facility] Comment on above: Performed By: #### C BCA, CMP, 3040-3, 28109-2, 1987-10, #### [facility] ([id number]) [address] [place] [address] 08212 Anion gap [Moles/Vol] 13 mmol/L Normal 5-15 [facility] Comment on above: Performed By: #### C BCA, CMP, 3040-3, 02465-6, 1987-10, #### [facility] ([id number]) [address] [place] [address] 98539 AST [Catalytic activity/Vol] 19 U/L Normal 0-41 [facility] Comment on above: Performed By: #### C BCA, CMP, 3040-3, 76544-6, 1987-10, #### [facility] ([id number]) [address] [place] [address] 42713 Bilirubin [Mass/Vol] 0.3 mg/dL Normal 0.3-1.2 [facility] Comment on above: Performed By: #### C BCA, CMP, 3040-3, 24480-6, 1987-10, #### [facility] ([id number]) [address] [place] [address] 16205 Calcium [Mass/Vol] 10.0 mg/dL Normal 8.5-10.5 [facility] Comment on above: Performed By: #### C BCA, CMP, 3040-3, 69202-6, 1987-10, #### [facility] ([id number]) [address] [place] [address] 57411 Chloride [Moles/Vol] 105 mmol/L Normal 98-109 [facility] Comment on above: Performed By: #### C STEVE JOE, 0-3, 83110-3, 1987-10, #### [facility] ([id number]) [address] [place] [address] 05660 CO2 [Moles/Vol] 21 mmol/L Low 22-32 [facility] Comment on above: Performed By: #### C STEVE JOE, 3039-3, , 1987-10, #### [facility] ([id number]) [address] [place] [address] 05372 Creatinine [Mass/Vol] 0.97 mg/dL Normal 0.40-1.00 [facility] Comment on above: Result Comment: METH OD TRACEABLE TO IDMS STANDARD Performed By: #### C STEVE JOE, 3039-08, , 1987-10, #### [facility] ([id number]) [address] [place] [address] 19279 GFR/1.73 sq M.predicted among non-blacks MDRD (S/P/Bld) [Vol rate/Area] 77 mL/min/{1.73_m2} Normal >59 [facility] Comment on above: Result Comment: Reported eGFR is based on the CKD-EPI 2020 equation that does not use a race coefficient. Performed By: #### C STEVE JOE, 3039-3, , 1987-10, #### [facility] ([id number]) [address] [place] [address] 01586 Glucose [Mass/Vol] 98 mg/dL Normal 65-99 [facility] Comment on above: Performed By: #### C STEVE JOE, 3039-3, , 1987-10, #### [facility] ([id number]) [address] [place] [address] 41056 Potassium [Moles/Vol] 3.7 mmol/L Normal 3.5-5.0 [facility] Comment on above: Performed By: #### C BCA, CMP, 3040-3, 67969-7, 1987-10, #### [facility] ([id number]) [address] [place] [address] Protein [Mass/Vol] 8.3 g/dL High 6.0-8.0 [facility] Comment on above: Performed By: #### C BCA, CMP, 3040-3, 63634-7, 1987-10, #### [facility] ([id number]) [address] [place] [address] 18242 Sodium [Moles/Vol] 139 mmol/L Normal 134-146 [facility] Comment on above: Performed By: #### C BCA, CMP, 3040-3, 08318-4, 1987-10, #### [facility] ([id number]) [address] [place] [address] 28588 Urea nitrogen [Mass/Vol] 11 mg/dL Normal 5-23 [facility] Comment on above: Performed By: #### C BCA, CMP, 3040-3, 60583-7, 1987-10, #### [facility] ([id number]) [address] [place] [address] ABDOMEN AND PELVIS W CONT on [...] Lang MD on 06/05/2024 8:30 PM Normal [facility] HCG ( test) Ql (U)o n 06-05-2024 Beta HCG ( test) Ql (U) Negative Normal NEG [facility] Comment on above: Performed By: #### C STEVE JOE, 0-3, , 1987-10, #### [facility] ([id number]) [address] [place] [address] 20786 LIPASEon 06-05-2024 Lipase [Catalytic activity/Vol] 44 U/L High 17-40 [facility] Comment on above: Performed By: #### C STEVE JOE, 0-3, , 1987-10, #### [facility] ([id number]) [address] [place] [address] 80029 URN MACROSCOPIC NURon 2023 BILIRUBIN AUDREY Negative Normal NEG [facility] Comment on above: Performed By: #### C STEVE JOE, 3040-3, , 1987-10, #### [facility] ([id number]) [address] [place] [address] 93849 BLOOD/HGB AUDREY Negative Normal NEG [facility] Comment on above: Performed By: #### C STEVE JOE, 3040-3, 10199-7, 1987-10, #### [facility] ([id number]) [address] [place] [address] 20063 GLUCOSE AUDREY Negative Normal NEG [facility] Comment on above: Performed By: #### C BCA, CMP, 3040-3, 63353-7, 1987-10, #### [facility] ([id number]) [address] [place] [address] 77182 KETONES AUDREY Negative Normal NEG [facility] Comment on above: Performed By: #### C BCA, CMP, 3040-3, 71856-7, 1987-10, #### [facility] ([id number]) [address] [place] [address] 70121 LEUKOCYTE ESTERASE AUDREY Negative Normal NEG [facility] Comment on above: Performed By: #### C BCA, CMP, 3040-3, 74084-3, 1987-10, #### [facility] ([id number]) [address] [place] [address] 22112 NITRITE AUDREY Negative Normal NEG [facility] Comment on above: Performed By: #### C BCA, CMP, 3040-3, 82734-5, 1987-10, #### [facility] ([id number]) [address] [place] [address] 06864 PH AUDREY 7.0 Normal 5.0-8.5 [facility] Comment on above: Performed By: #### C BCA, CMP, 3040-3, 16221-9, 1987-10, #### [facility] ([id number]) [address] [place] [address] [place] [address] PROTEIN AUDREY Negative Normal NEG [facility] Comment on above: Performed By: #### C BCA, CMP, 3040-3, 22906-0, 1987-10, #### [facility] ([id number]) [address] [place] [address], [place] [address] SPECIFIC GRAVITY AUDREY 1.015 Normal 1.003-1.035 [facility] Comment on above: Performed By: #### C BCA, CMP, 3040-3, 86338-5, 1987-10, #### [facility] ([id number]) [address] [place] [address] 50128 UROBILINOGEN AUDREY 1.0 eu/dL Normal <1.1 [facility] Comment on above: Performed By: #### C BCA, CMP, 3040-3, 48284-4, 1987-10, #### [facility] ([id number]) [address] [place] [address] 84326 CBC with Diffon 05-28-2024 Morphology Edson (Bld) [Interp] SLIGHT Normal [facility] Comment on above: Result Comment: MICR OCYTOSIS Performed By: #### C P, CDP #### [facility] [address] [place], [place] [phone] [employer]: Jennifer Freire MD Urinalysis, Routineon 2023 Bilirubin, SemiQt,Ur Negative Normal NEG [facility] Comment on above: Performed By: #### U A, UMICAO #### [facility] [address] [place], [place] [phone] [employer]: Jennifer Freire MD Blood, Urine TRACE Abnormal NEG [facility] Comment on above: Performed By: #### U A, UMICAO #### [facility] [address] [place] [address] [employer]: Jennifer Freire MD Clarity (U) Clear Normal CLEAR [facility] Comment on above: Performed By: #### U A, UMICAO #### [facility] [address] [place] [address] [employer]: Jennifer Freire MD Color (U) Yellow Normal YEL [facility] Comment on above: Performed By: #### U A, UMICAO #### [facility] [address] [place] [address] [employer]: Jennifer Freire MD Comment Normal [facility] Comment on above: Performed By: #### U A, UMICAO #### [facility] [address] [place] [address] [employer]: Jennifer Freire MD Glucose Ql (U) Negative Normal NEG [facility] Comment on above: Performed By: #### U A, UMICAO #### [facility] [address] [place] [address] [employer]: Jennifer Freire MD Ketones Ql (U) Negative Normal NEG [facility] Comment on above: Performed By: #### U A, UMICAO #### [facility] [address] [place] [address] [employer]: Jennifer Freire MD Leukocyte esterase Test strip Ql (U) Negative Normal NEG [facility] Comment on above: Performed By: #### U A, UMICAO #### [facility] [address] [place] [address] [employer]: Jennifer Freire MD Nitrite,Ur Negative Normal NEG [facility] Comment on above: Performed By: #### U A, UMICAO #### [facility] [address] [place] [address] [employer]: Jennifer Freire MD PH,Ur 7.0 Normal 5.0-8.[address] [facility] Comment on above: Performed By: #### U A, UMICAO #### [facility] [address] [facility] [place] [phone] [employer]: Jennifer Freire MD Protein Ql (U) Negative Normal NEG [facility] Comment on above: Performed By: #### U A, UMICAO #### [facility] [address] [place] [address] [employer]: Jennifer Freire MD Spec. [place],Ur 1.010 Normal 1.005-1.[address] [facility] Comment on above: Performed By: #### U A, UMICAO #### [facility] [address] [place] [address] [employer]: Jennifer Freire MD Urobilinogen,Ur Normal Normal 0.0-1.[address] [facility] Comment on above: Performed By: #### U A, UMICAO #### [facility] [address] [place] [address] [employer]: Jennifer Freire MD Urinalysis,Microon ----- Normal [facility] Comment on above: Performed By: #### U A, UMICAO #### [facility] [address] [place] [address] [employer]: Jennifer Freire MD Urine RBC's 2 TO 5 Normal 0-[address] [facility] Comment on above: Performed By: #### U A, UMICAO #### [facility] [address] [place] [address] [employer]: Jennifer Freire MD Urine WBC's None Seen Normal [address] [facility] Comment on above: Performed By: #### U A, UMICAO #### [facility] [address] [place] [address] [employer]: Jennifer Freire MD CBC with Diffon 05-27-2024 Abs. Basophil 0.03 k/uL Normal 0.00-0.[address] [facility] Comment on above: Performed By: #### C P, CDP #### [facility] [address] [place] [phone] [employer]: Jennifer Freire MD Abs.Imm.Granulocyte 0.01 k/uL Normal 0.00-0.[address] [facility] Comment on above: Performed By: #### C P, CDP #### [facility] [address] [place] [phone] [employer]: Jennifer Freire MD Abs.Neutrophil (Seg) 4.33 k/uL Normal 2.5-7.0 [facility] Comment on above: Performed By: #### C P, CDP #### [facility] [address] [place] [address] [employer]: Jennifer Freire MD Basophils/100 WBC (Bld) 0 % Normal 0-2 [facility] Comment on above: Performed By: #### C P, CDP #### [facility] [address] [place] [phone] [employer]: Jennifer Freire MD Eosinophils (Bld) [#/Vol] 0.08 10*3/uL Normal 0.00-0.[address] [facility] Comment on above: Performed By: #### C P, CDP #### [facility] [address] [place] [phone] [employer]: Jennifer Freire MD Eosinophils/100 WBC (Bld) 1 % Normal 0-[address] [facility] Comment on above: Performed By: #### C P, CDP #### [facility] [address] [place] [phone] [employer]: Jennifer Freire MD Erythrocyte distribution width (RBC) [Ratio] 17.2 % High 12.1-15.[address] [facility] Comment on above: Performed By: #### C P, CDP #### [facility] [address] [place] [phone] [employer]: Jennifer Freire MD Hematocrit (Bld) [Volume fraction] 36.4 % Normal 36.0-46.[address] [facility] Comment on above: Performed By: #### C P, CDP #### [facility] [address] [place] [address] [employer]: Jennifer Freire MD Hemoglobin (Bld) [Mass/Vol] 11.4 g/dL Low 12.0-16.[address] [facility] Comment on above: Performed By: #### C P, CDP #### [facility] [address] [place] [address] [employer]: Jennifer Freire MD Immature granulocytes/100 WBC (Bld) 0 % Normal 0-[address] [facility] Comment on above: Performed By: #### C P, CDP #### [facility] [address] [place] [address] [employer]: Jennifer Freire MD Lymphocytes (Bld) [#/Vol] 3.24 10*3/uL Normal 1.00-4.[address] [facility] Comment on above: Performed By: #### C P, CDP #### [facility] [address] [place] [address] [employer]: Jennifer Freire MD Lymphocytes/100 WBC (Bld) 40 % Normal 15-[address] [facility] Comment on above: Performed By: #### C P, CDP #### [facility] [address] [place] [address] [employer]: Jennifer Freire MD MCH (RBC) [Entitic mass] 22.6 pg Low 26.0-34.[address] [facility] Comment on above: Performed By: #### C P, CDP #### [facility] [address] [place] [address] [employer]: Jennifer Freire MD MCHC (RBC) [Mass/Vol] 31.3 g/dL Normal 31.0-37.0 [facility] Comment on above: Performed By: #### C P, CDP #### [facility] [address] [place], [place] [id number] [employer]: Jennifer Freire MD MCV (RBC) [Entitic vol] 72.2 fL Low 80.0-100.0 M [facility] Comment on above: Performed By: #### C P, CDP #### [facility] [address] [place] [address] [employer]: Jennifer Freire MD Monocytes (Bld) [#/Vol] 0.51 10*3/uL Normal 0.00-1.[address] [facility] Comment on above: Performed By: #### C P, CDP #### [facility] [address] [place] [address] [employer]: Jennifer Freire MD Monocytes/100 WBC (Bld) 6 % Normal 4-8 M [facility] Comment on above: Performed By: #### C P, CDP #### [facility] [address] [place] [address] [employer]: Jennifer Freire MD Neutrophil (Seg) 53 % Normal 47-[address] [facility] Comment on above: Performed By: #### C P, CDP #### [facility] [address] [place], [place] [phone] [employer]: Jennifer Freire MD Platelet mean volume (Bld) [Entitic vol] 9.3 fL Normal 6.0-12.[address] [facility] Comment on above: Performed By: #### C P, CDP #### [facility] [address] [place] [address] [employer]: Jennifer Freire MD Platelets (Bld) [#/Vol] 583 10*3/uL High 140-[address] [facility] Comment on above: Performed By: #### C P, CDP #### [facility] [address] [place], [place] [phone] [employer]: Jennifer Freire MD RBC (Bld) [#/Vol] 5.04 10*6/uL Normal 4.00-5.[address] [facility] Comment on above: Performed By: #### C P, CDP #### [facility] [address] [place], [place] [phone] ([phone]) [employer]: Jennifer Freire MD WBC (Bld) [#/Vol] 8.2 10*3/uL Normal 3.5-11.[address] [facility] Comment on above: Performed By: #### C P, CDP #### [facility] [address] [place], [place] [phone] ([phone] [employer]: Jennifer Freire MD Comp Metabolic Profon 2023 Albumin [Mass/Vol] 4.7 g/dL Normal 3.5-5.[address] [facility] Comment on above: Performed By: #### C P, CDP #### [facility] [address] [place], [place] [phone] (154) [employer]: Jennifer Freire MD Alkaline Phos 92 U/L Normal 35-[address] [facility] Comment on above: Performed By: #### C P, CDP #### [facility] [address] [place] [address] [employer]: Jennifer Freire MD ALT [Catalytic activity/Vol] 16 U/L Normal 5-[address] [facility] Comment on above: Performed By: #### C P, CDP #### [facility] [address] [place], [place] [phone] [employer]: Jennifer Freire MD Anion gap [Moles/Vol] 14 mmol/L Normal 9-17 [facility] Comment on above: Performed By: #### C P, CDP #### [facility] [address] [place], [place] [phone] ([phone]) [employer]: Jennifer Freire MD AST [Catalytic activity/Vol] 17 U/L Normal <[address] [facility] Comment on above: Performed By: #### C P, CDP #### [facility] [address] [place], [place] [phone] [employer]: Jennifer Freire MD Bilirubin [Mass/Vol] 0.2 mg/dL Low 0.3-1.2 [facility] Comment on above: Performed By: #### C P, CDP #### [facility] [address] [place] [address] [employer]: Jennifer Freire MD BUN/CRE Ratio 9 Normal 9-[address] [facility] Comment on above: Performed By: #### C P, CDP #### [facility] [address] [place], [place] 11236[address] [employer]: Jennifer Freire MD Calcium [Mass/Vol] 9.9 mg/dL Normal 8.6-10.[address] [facility] Comment on above: Performed By: #### C P, CDP #### [facility] [address] [place], [place] [phone] [employer]: Jennifer Freire MD Chloride [Moles/Vol] 106 mmol/L Normal 98-107 [facility] Comment on above: Performed By: #### C P, CDP #### [facility] [address] [place] [address] [employer]: Jennifer Freire MD CO2 [Moles/Vol] 22 mmol/L Normal 20-[address] [facility] Comment on above: Performed By: #### C P, CDP #### [facility] [address] [place] [address] [employer]: Jennifer Freire MD Creatinine [Mass/Vol] 0.8 mg/dL Normal 0.5-0.9 [facility] Comment on above: Performed By: #### C P, CDP #### [facility] [address] [place], [place] [phone] [employer]: Jennifer Freire MD GFR/1.73 sq M.predicted among non-blacks MDRD (S/P/Bld) [Vol rate/Area] mL/min/{1.73_m2} Normal >[address] [facility] Comment [...] Performed By: #### C P, CDP #### [facility] [address] [place] [address] [employer]: Jennifer Freire MD Glucose [Mass/Vol] 93 mg/dL Normal 70-[address] [facility] Comment on above: Performed By: #### C P, CDP #### [facility] [address] [place], [place] [phone] [employer]: Jennifer Freire MD Potassium [Moles/Vol] 3.7 mmol/L Normal 3.7-5.3 [facility] Comment on above: Performed By: #### C P, CDP #### [facility] [address] [place], [place] [phone] [employer]: Jennifer Freire MD Protein [Mass/Vol] 8.3 g/dL Normal 6.4-8.[address] [facility] Comment on above: Performed By: #### C P, CDP #### [facility] [address] [place] [address] [employer]: Jennifer Freire MD Sodium [Moles/Vol] 142 mmol/L Normal 135-[address] [facility] Comment on above: Performed By: #### C P, CDP #### [facility] [address] [place], [place] [phone] [employer]: Jennifer Freire MD Urea nitrogen [Mass/Vol] 7 mg/dL Normal 6-[address] [facility] Comment on above: Performed By: #### C P, CDP #### [facility] [address] [place] [address] [employer]: Jennifer Freire MD Surgical Pathologyon 024 Surgical Pathology Normal [facility] Comment on above: Result Comment: [facility] [employer] [facility] [address] [place] [address] Surgical Pathology Consultation Patient Name:ANTONIA NOYOLA:1985 (Age: 39)Gender:FTaken:4Reported:04/17/2024hysician(s):Adiel Aparicio M.D. ([phone])Copy To: Rec. #:[id number]: #[id number] Final Pathologic Diagnosis Uterus, cervix, bilateral fallopian tubes, and bilateral ovaries, TAHBSO: Cervix, negative for dysplasia Inactive endometrium with benign endometrial polyp Bilateral ovaries with endometriosis/endometrioma Unremarkable fallopian tubes Report Electronically Signed Out k/04/17/2024Evelin Joshi MD Interpretation performed at [facility], [address] [place] [address], License number: [id number]. Clinical History Endometriosis/ pelvic pain. Gross Description Received in formalin labeled DENNYS, uterus, cervix, bilateral fallopian tubes and bilateral [...] entirely filled with red-brown, hemorrhagic turbid fluid [employer] sections are submitted in cassettes A-L, as: A anterior cervix B posterior cervix C anterior uterine wall D anterior endomyometrium E posterior uterine wall with whirled nodule F posterior endomyometrium G right fallopian tube with entire fimbriated end H-I right ovary J left fallopian tube with entire fimbriated end K-L left ovary (12, ss, [id number], m6) mxw/04/06/2024[facility] Specimen(s) Received Uterus, cervix, bilateral fallopian tubes, and bilateral ovaries Fee Codes(s): 1; 13803 CBC AND AUTO DIFFon 10-24-20 24 ABSOLUTE BASOPHIL 0.1 X10E9/L Normal 0.0-0.2 [facility] Comment on above: Performed By: #### 2 106-3 #### [facility] ([id number]) [address] [place] [address] 14291 ABSOLUTE NEUTROPHIL 4.5 X10E9/L Normal 1.5-6.6 [facility] Comment on above: Performed By: #### 2 106-3 #### [facility] ([id number]) [address] [place] [address] 14445 Basophils/100 WBC (Bld) 1.1 % Normal [facility] Comment on above: Performed By: #### 2 106-3 #### [facility] ([id number]) [address] [place] [address] 61157 Eosinophils (Bld) [#/Vol] 0.0 10*3/uL Normal 0.0-0.4 [facility] Comment on above: Performed By: #### 2 106-3 #### [facility] ([id number]) [address] [place] [address] 71235 Eosinophils/100 WBC (Bld) 0.5 % Normal [facility] Comment on above: Performed By: #### 2 106-3 #### [facility] ([id number]) [address] [place] [address] 05202 Erythrocyte distribution width (RBC) [Ratio] 18.3 % High 11.5-15.0 [facility] Comment on above: Performed By: #### 2 106-3 #### [facility] ([id number]) [address] [place] [address] 33960 Hematocrit (Bld) [Volume fraction] 32.1 % Low 35-47 [facility] Comment on above: Performed By: #### 2 106-3 #### [facility] ([id number]) [address] [place] [address] 88602 Hemoglobin (Bld) [Mass/Vol] 10.2 g/dL Low 11.7-15.5 [facility] Comment on above: Performed By: #### 2 106-3 #### [facility] ([id number]) [address] [place] [address] 02837 Lymphocytes (Bld) [#/Vol] 2.5 10*3/uL Normal 1.0-3.5 [facility] Comment on above: Performed By: #### 2 106-3 #### [facility] ([id number]) [address] [place] [address] 23221 Lymphocytes/100 WBC (Bld) 33.1 % Normal [facility] Comment on above: Performed By: #### 2 106-3 #### [facility] ([id number]) [address] [place] [address] 69896 MCH (RBC) [Entitic mass] 22.6 pg Low 27-34 [facility] Comment on above: Performed By: #### 2 106-3 #### [facility] ([id number]) [address] [place] [address] 80934 MCHC (RBC) [Mass/Vol] 31.7 g/dL Low 32-36 [facility] Comment on above: Performed By: #### 2 106-3 #### [facility] ([id number]) [address] [place] [address] 47304 MCV (RBC) [Entitic vol] 71 fL Low 80-100 [facility] Comment on above: Performed By: #### 2 106-3 #### [facility] ([id number]) [address] [place] [address] 51658 Monocytes (Bld) [#/Vol] 0.5 10*3/uL Normal 0-0.9 [facility] Comment on above: Performed By: #### 2 106-3 #### [facility] ([id number]) [address] [place] [address] 56776 Monocytes/100 WBC (Bld) 6.2 % Normal [facility] Comment on above: Performed By: #### 2 106-3 #### [facility] ([id number]) [address] [place] [address] 15035 Neutrophils/100 WBC (Bld) 59.1 % Normal [facility] Comment on above: Performed By: #### 2 106-3 #### [facility] ([id number]) [address] [place] [address] 39235 Platelet mean volume (Bld) [Entitic vol] 7.6 fL Normal 7-12 [facility] Comment on above: Performed By: #### 2 106-3 #### [facility] ([id number]) [address] [place] [address] 24052 Platelets (Bld) [#/Vol] 582 10*3/uL High 150-450 [facility] Comment on above: Performed By: #### 2 106-3 #### [facility] ([id number]) [address] [place] [address] 72070 RBC COUNT 4.51 X10E12/L Normal 3.80-5.20 [facility] Comment on above: Performed By: #### 2 106-3 #### [facility] ([id number]) [address] [place] [address] 22435 WBC (Bld) [#/Vol] 7.7 10*3/uL Normal 4.0-11.0 [facility] Comment on above: Performed By: #### 2 106-3 #### [facility] ([id number]) [address] [place] [address] 44388 COMPREHENSIVE METABOLIC PANE Van 04-05-2024 Albumin [Mass/Vol] 4.3 g/dL Normal 3.2-5.3 [facility] Comment on above: Performed By: #### 2 106-3 #### [facility] ([id number]) [address] [place] [address] 26837 ALP [Catalytic activity/Vol] 65 U/L Normal 39-130 [facility] Comment on above: Performed By: #### 2 106-3 #### [facility] ([id number]) [address] [place] [address] 14780 ALT [Catalytic activity/Vol] 20 U/L Normal 0-31 [facility] Comment on above: Performed By: #### 2 106-3 #### [facility] ([id number]) [address] [place] [address] 52103 Anion gap [Moles/Vol] 8 mmol/L Normal 5-15 [facility] Comment on above: Performed By: #### 2 106-3 #### [facility] ([id number]) [address] [place] [address] 49533 AST [Catalytic activity/Vol] 24 U/L Normal 0-41 [facility] Comment on above: Performed By: #### 2 106-3 #### [facility] ([id number]) [address] [place] [address] 97085 Bilirubin [Mass/Vol] 0.8 mg/dL Normal 0.3-1.2 [facility] Comment on above: Performed By: #### 2 106-3 #### [facility] ([id number]) [address] [place] [address] 88152 Calcium [Mass/Vol] 8.9 mg/dL Normal 8.5-10.5 [facility] Comment on above: Performed By: #### 2 106-3 #### [facility] ([id number]) [address] [place] [address] 22288 Chloride [Moles/Vol] 104 mmol/L Normal 98-109 [facility] Comment on above: Performed By: #### 2 106-3 #### [facility] ([id number]) [address] [place] [address] 56223 CO2 [Moles/Vol] 22 mmol/L Normal 22-32 [facility] Comment on above: Performed By: #### 2 106-3 #### [facility] ([id number]) [address] [place] [address] 44670 Creatinine [Mass/Vol] 0.62 mg/dL Normal 0.40-1.00 [facility] Comment on above: Result Comment: METH OD TRACEABLE TO IDMS STANDARD Performed By: #### 2 106-3 #### [facility] ([id number]) [address] [place] [address] 48358 eGFR (CKD-EPI) NON-RACE DEPENDENT >90 Normal >59 [facility] Comment on above: Result Comment: Reported eGFR is based on the CKD-EPI 2020 equation that does not use a race coefficient. Performed By: #### 2 106-3 #### [facility] ([id number]) [address] [place] [address] 23429 Glucose [Mass/Vol] 107 mg/dL High 65-99 [facility] Comment on above: Performed By: #### 2 106-3 #### [facility] ([id number]) [address] [place] [address] 30160 Potassium [Moles/Vol] 3.7 mmol/L Normal 3.5-5.0 [facility] Comment on above: Performed By: #### 2 106-3 #### [facility] ([id number]) [address] [place] [address] 85665 Protein [Mass/Vol] 8.0 g/dL Normal 6.0-8.0 [facility] Comment on above: Performed By: #### 2 106-3 #### [facility] ([id number]) [address] [place] [address] Sodium [Moles/Vol] 134 mmol/L Normal 134-146 [facility] Comment on above: Performed By: #### 2 106-3 #### [facility] ([id number]) [address] [place] [address] 06543 Urea nitrogen [Mass/Vol] 8 mg/dL Normal 5-23 [facility] Comment on above: Performed By: #### 2 106-3 #### [facility] ([id number]) [address] [place] [address] ABDOMEN AND PELVIS WO CON Ton [...] Atwood MD on 04/05/2024 3:57 PM Normal [facility] HCG ( test) Ql (U)o n 04-05-2024 Beta HCG ( test) Ql (U) Negative Normal NEG [facility] Comment on above: Performed By: #### C BCA, CMP, 3040-3, 20864-6, 1988-5, 65709-2 #### [facility] ([id number]) [address] [place] [address] 56508 LIPASEon 04-05-2024 Lipase [Catalytic activity/Vol] 30 U/L Normal 17-40 [facility] Comment on above: Performed By: #### 2 106-3 #### [facility] ([id number]) [address] [place] [address] 62395 Lactate (P arely) [Moles/Vol]o n 04-05-2024 LACTATE W/REFLEX 1.7 mmol/L Normal 0.4-2.0 [facility] Comment on above: Result Comment: Result did not trigger repeat Lactate, re-order if needed. Performed By: #### C BCA, CMP, 3040-3, 56078-6, 1987-5, 21315-2 #### [facility] ([id number]) [address] [place] [address] 14184 URN MACROSCOPIC NURon 2023 BILIRUBIN AUDREY Negative Normal NEG [facility] Comment on above: Performed By: #### 2 106-3 #### [facility] ([id number]) [address] [place] [address] 71441 BLOOD/HGB AUDREY Negative Normal NEG [facility] Comment on above: Performed By: #### 2 106-3 #### [facility] ([id number]) [address] [place] [address] 56291 GLUCOSE AUDREY Negative Normal NEG [facility] Comment on above: Performed By: #### 2 106-3 #### [facility] ([id number]) [address] [place] [address] 44915 KETONES AUDREY Negative Normal NEG [facility] Comment on above: Performed By: #### 2 106-3 #### [facility] ([id number]) [address] [place] [address] 35357 LEUKOCYTE ESTERASE AUDREY Negative Normal NEG [facility] Comment on above: Performed By: #### 2 106-3 #### [facility] ([id number]) [address] [place] [address] 77013 NITRITE AUDREY Negative Normal NEG [facility] Comment on above: Performed By: #### 2 106-3 #### [facility] ([id number]) [address] [place] [address] PH AUDREY 7.0 Normal 5.0-8.5 [facility] Comment on above: Performed By: #### 2 106-3 #### [facility] ([id number]) [address] [place] [address] 05367 PROTEIN AUDREY Negative Normal NEG [facility] Comment on above: Performed By: #### 2 106-3 #### [facility] ([id number]) [address] [place] [address] 85157 SPECIFIC GRAVITY AUDREY 1.010 Normal 1.003-1.035 [facility] Comment on above: Performed By: #### 2 106-3 #### [facility] ([id number]) [address] [place] [address] 52181 UROBILINOGEN AUDREY 0.2 eu/dL Normal <1.1 [facility] Comment on above: Performed By: #### 2 106-3 #### [facility] ([id number]) [address] [place] [address] 78144 US PELVIC WITH TRANSVAGINAL AND DUPLEXon 04-05-2024 [...] IMPRESSION: * No acute findings. Finalized by Sarah Martinez MD on 04/05/2024 3:03 PM Normal [facility] CBC AND AUTO DIFFon 03-28-20 ABSOLUTE BASOPHIL 0.1 X10E9/L Normal 0.0-0.2 [facility] Comment on above: Performed By: #### C BCA, CMP #### [facility] ([id number]) [address] [place] [address] ABSOLUTE NEUTROPHIL 2.4 X10E9/L Normal 1.5-6.6 [facility] Comment on above: Performed By: #### C BCA, CMP #### [facility] ([id number]) [address] [place] [address] Basophils/100 WBC (Bld) 1.1 % Normal [facility] Comment on above: Performed By: #### C BCA, CMP #### [facility] ([id number]) [address] [place] [address] Eosinophils (Bld) [#/Vol] 0.1 10*3/uL Normal 0.0-0.4 [facility] Comment on above: Performed By: #### C BCA, CMP #### [facility] ([id number]) [address] [address] Eosinophils/100 WBC (Bld) 2.7 % Normal [facility] Comment on above: Performed By: #### C BCA, CMP #### [facility] ([id number]) [address] [place] [address] Erythrocyte distribution width (RBC) [Ratio] 18.7 % High 11.5-15.0 [facility] Comment on above: Performed By: #### C HEATH, CMP #### [facility] ([id number]) [address] [place] [address] Hematocrit (Bld) [Volume fraction] 31.3 % Low 35-47 [facility] Comment on above: Performed By: #### C HEATH, CMP #### [facility] ([id number]) [address] [place] [address] Hemoglobin (Bld) [Mass/Vol] 9.9 g/dL Low 11.7-15.5 [facility] Comment on above: Performed By: #### C HEATH, CMP #### [facility] ([id number]) [address] [place] [address] Lymphocytes (Bld) [#/Vol] 2.2 10*3/uL Normal 1.0-3.5 [facility] Comment on above: Performed By: #### C HEATH, CMP #### [facility] ([id number]) [address] [place] [address] Lymphocytes/100 WBC (Bld) 42.4 % Normal [facility] Comment on above: Performed By: #### C HEATH, CMP #### [facility] ([id number]) [address] [place] [address] MCH (RBC) [Entitic mass] 23.2 pg Low 27-34 [facility] Comment on above: Performed By: #### C BCA, CMP #### [facility] ([id number]) [address] [place] [address] MCHC (RBC) [Mass/Vol] 31.7 g/dL Low 32-36 [facility] Comment on above: Performed By: #### C BCA, CMP #### [facility] ([id number]) [address] [place] [address] MCV (RBC) [Entitic vol] 73 fL Low 80-100 P [facility] Comment on above: Performed By: #### C BCA, CMP #### [facility] ([id number]) [address] [place] [address] Monocytes (Bld) [#/Vol] 0.4 10*3/uL Normal 0-0.9 [facility] Comment on above: Performed By: #### C HEATH, CMP #### [facility] ([id number]) [address] [place] [address] Monocytes/100 WBC (Bld) 7.9 % Normal [facility] Comment on above: Performed By: #### C HEATH, CMP #### [facility] ([id number]) [address] [place] [address] Neutrophils/100 WBC (Bld) 45.9 % Normal [facility] Comment on above: Performed By: #### C HEATH, CMP #### [facility] ([id number]) [address] [place] [address] Platelet mean volume (Bld) [Entitic vol] 8.0 fL Normal 7-12 [facility] Comment on above: Performed By: #### C BCA, CMP #### [facility] ([id number]) [address] [place] [address] Platelets (Bld) [#/Vol] 457 10*3/uL High 150-450 [facility] Comment on above: Performed By: #### C BCA, CMP #### [facility] ([id number]) [address] [place] [address] RBC COUNT 4.28 X10E12/L Normal 3.80-5.20 [facility] [place] [facility] Comment on above: Performed By: #### C BCA, CMP #### [facility] ([id number]) [address] [place] [address] WBC (Bld) [#/Vol] 5.2 10*3/uL Normal 4.0-11.0 [facility] Comment on above: Performed By: #### C BCA, CMP #### [facility] ([id number]) [address] [place] [address] COMPREHENSIVE METABOLIC PANE Van 03-28-2024 Albumin [Mass/Vol] 4.0 g/dL Normal 3.2-5.3 [facility] Comment on above: Performed By: #### C BCA, CMP #### [facility] ([id number]) [address] [place] [address] ALP [Catalytic activity/Vol] 61 U/L Normal 39-130 [facility] Comment on above: Performed By: #### C BCA, CMP #### [facility] ([id number]) [address] [place] [address] ALT [Catalytic activity/Vol] 12 U/L Normal 0-31 [facility] Comment on above: Performed By: #### C BCA, CMP #### [facility] ([id number]) [address] [place] [address] Anion gap [Moles/Vol] 10 mmol/L Normal 5-15 [facility] Comment on above: Performed By: #### C BCA, CMP #### [facility] ([id number]) [address] [place] [address] AST [Catalytic activity/Vol] 14 U/L Normal 0-41 [facility] Comment on above: Performed By: #### C BCA, CMP #### [facility] ([id number]) [address] [place] [address] Bilirubin [Mass/Vol] 0.3 mg/dL Normal 0.3-1.2 [facility] Comment on above: Performed By: #### C BCA, CMP #### [facility] ([id number]) [address] [place] [address] Calcium [Mass/Vol] 9.0 mg/dL Normal 8.5-10.5 [facility] Comment on above: Performed By: #### C BCA, CMP #### [facility] ([id number]) [address] [place] [address] Chloride [Moles/Vol] 107 mmol/L Normal 98-109 [facility] Comment on above: Performed By: #### C BCA, CMP #### [facility] ([id number]) [address] [place] [address] CO2 [Moles/Vol] 24 mmol/L Normal 22-32 [facility] Comment on above: Performed By: #### C BCA, CMP #### [facility] ([id number]) [address] [address] [place] [address] Creatinine [Mass/Vol] 0.72 mg/dL Normal 0.40-1.00 [facility] Comment on above: Result Comment: METH OD TRACEABLE TO IDMS STANDARD Performed By: #### C BCA, CMP #### [facility] ([id number]) [address] [place] [address] eGFR (CKD-EPI) NON-RACE DEPENDENT >90 Normal >59 [facility] Comment on above: Result Comment: Reported eGFR is based on the CKD-EPI 2020 equation that does not use a race coefficient. Performed By: #### C BCA, CMP #### [facility] ([id number]) [address] [place] [address] Glucose [Mass/Vol] 101 mg/dL High 65-99 [facility] Comment on above: Performed By: #### C BCA, CMP #### [facility] ([id number]) [address] [place] [address] Potassium [Moles/Vol] 3.9 mmol/L Normal 3.5-5.0 [facility] Comment on above: Performed By: #### C BCA, CMP #### [facility] ([id number]) [address] [place] [address] Protein [Mass/Vol] 6.9 g/dL Normal 6.0-8.0 [facility] Comment on above: Performed By: #### C BCA, CMP #### [facility] ([id number]) [address] [place] [address] Sodium [Moles/Vol] 141 mmol/L Normal 134-146 [facility] Comment on above: Performed By: #### C BCA, CMP #### [facility] ([id number]) [address] [place] [address] Urea nitrogen [Mass/Vol] 10 mg/dL Normal 5-23 [facility] Comment on above: Performed By: #### C BCA, CMP #### [facility] ([id number]) [address] [place] [address] CBC AND AUTO DIFFon 03-07-20 24 ABSOLUTE BASOPHIL 0.1 X10E9/L Normal 0.0-0.2 [facility] Comment on above: Performed By: #### 2 106-3 #### [facility] ([id number]) [address] [place] [address] 74102 ABSOLUTE NEUTROPHIL 3.0 X10E9/L Normal 1.5-6.6 [facility] Comment on above: Performed By: #### 2 106-3 #### [facility] ([id number]) [address] [place] [address] 46053 Basophils/100 WBC (Bld) 1.1 % Normal [facility] Comment on above: Performed By: #### 2 106-3 #### [facility] ([id number]) [address] [place] [address] 11805 Eosinophils (Bld) [#/Vol] 0.1 10*3/uL Normal 0.0-0.4 [facility] Comment on above: Performed By: #### 2 106-3 #### [facility] ([id number]) [address] [place] [address] 62767 Eosinophils/100 WBC (Bld) 1.0 % Normal [facility] Comment on above: Performed By: #### 2 106-3 #### [facility] ([id number]) [address] [place] [address] 23654 Erythrocyte distribution width (RBC) [Ratio] 17.6 % High 11.5-15.0 [facility] Comment on above: Performed By: #### 2 106-3 #### [facility] ([id number]) [address] [place] [address] 27094 Hematocrit (Bld) [Volume fraction] 34.1 % Low 35-47 [facility] Comment on above: Performed By: #### 2 106-3 #### [facility] ([id number]) [address] [place] [address] 52340 Hemoglobin (Bld) [Mass/Vol] 10.9 g/dL Low 11.7-15.5 [facility] Comment on above: Performed By: #### 2 106-3 #### [facility] ([id number]) [address] [place] [address] 64639 Lymphocytes (Bld) [#/Vol] 2.0 10*3/uL Normal 1.0-3.5 [facility] Comment on above: Performed By: #### 2 106-3 #### [facility] ([id number]) [address] [place] [address] 85594 Lymphocytes/100 WBC (Bld) 36.4 % Normal [facility] Comment on above: Performed By: #### 2 106-3 #### [facility] ([id number]) [address] [place] [address] 62130 MCH (RBC) [Entitic mass] 22.7 pg Low 27-34 [facility] Comment on above: Performed By: #### 2 106-3 #### [facility] ([id number]) [address] [place] [address] 24228 MCHC (RBC) [Mass/Vol] 31.8 g/dL Low 32-36 [facility] Comment on above: Performed By: #### 2 106-3 #### [facility] ([id number]) [address] [place] [address] 74782 MCV (RBC) [Entitic vol] 71 fL Low 80-100 [facility] Comment on above: Performed By: #### 2 106-3 #### [facility] ([id number]) [address] [place] [address] 16920 Monocytes (Bld) [#/Vol] 0.4 10*3/uL Normal 0-0.9 [facility] Comment on above: Performed By: #### 2 106-3 #### [facility] ([id number]) [address] [place] [address] 46401 Monocytes/100 WBC (Bld) 6.9 % Normal [facility] Comment on above: Performed By: #### 2 106-3 #### [facility] ([id number]) [address] [place] [address] 13609 Neutrophils/100 WBC (Bld) 54.6 % Normal [facility] Comment on above: Performed By: #### 2 106-3 #### [facility] ([id number]) [address] [place] [address] 31169 Platelet mean volume (Bld) [Entitic vol] 7.7 fL Normal 7-12 [facility] Comment on above: Performed By: #### 2 106-3 #### [facility] ([id number]) [address] [place] [address] 72627 Platelets (Bld) [#/Vol] 514 10*3/uL High 150-450 [facility] Comment on above: Performed By: #### 2 106-3 #### [facility] ([id number]) [address] [place] [address] 40521 RBC COUNT 4.78 X10E12/L Normal 3.80-5.20 [place] [facility] Comment on above: Performed By: #### 2 106-3 #### [facility] ([id number]) [address] [place] [address] 83067 WBC (Bld) [#/Vol] 5.5 10*3/uL Normal 4.0-11.0 [facility] Comment on above: Performed By: #### 2 106-3 #### [facility] ([id number]) [address] [place] [address] 02100 COMPREHENSIVE METABOLIC PANE Van 03-07-2024 Albumin [Mass/Vol] 4.5 g/dL Normal 3.2-5.3 [facility] Comment on above: Performed By: #### 2 106-3 #### [facility] ([id number]) [address] [place] [address] 86728 ALP [Catalytic activity/Vol] 64 U/L Normal 39-130 [facility] Comment on above: Performed By: #### 2 106-3 #### [facility] ([id number]) [address] [place] [address] ALT [Catalytic activity/Vol] 18 U/L Normal 0-31 [facility] Comment on above: Performed By: #### 2 106-3 #### [facility] ([id number]) [address] [place] [address] 90223 Anion gap [Moles/Vol] 8 mmol/L Normal 5-15 [facility] Comment on above: Performed By: #### 2 106-3 #### [facility] ([id number]) [address] [place] [address] 59557 AST [Catalytic activity/Vol] 19 U/L Normal 0-41 [facility] Comment on above: Performed By: #### 2 106-3 #### [facility] ([id number]) [address] [place] [address] 89508 Bilirubin [Mass/Vol] 0.7 mg/dL Normal 0.3-1.2 [facility] Comment on above: Performed By: #### 2 106-3 #### [facility] ([id number]) [address] [place] [address] 07698 Calcium [Mass/Vol] 9.4 mg/dL Normal 8.5-10.5 [facility] Comment on above: Performed By: #### 2 106-3 #### [facility] ([id number]) [address] [place] [address] 83968 Chloride [Moles/Vol] 105 mmol/L Normal 98-109 [facility] Comment on above: Performed By: #### 2 106-3 #### [facility] ([id number]) [address] [place] [address] 44523 CO2 [Moles/Vol] 21 mmol/L Low 22-32 [facility] Comment on above: Performed By: #### 2 106-3 #### [facility] ([id number]) [address] [place] [address] [place] [address] Creatinine [Mass/Vol] 0.68 mg/dL Normal 0.40-1.00 [facility] Comment on above: Result Comment: METH OD TRACEABLE TO IDMS STANDARD Performed By: #### 2 106-3 #### [facility] ([id number]) [address] [place] [address] 53228 eGFR (CKD-EPI) NON-RACE DEPENDENT >90 Normal >59 [facility] Comment on above: Result Comment: Reported eGFR is based on the CKD-EPI 2020 equation that does not use a race coefficient. Performed By: #### 2 106-3 #### [facility] ([id number]) [address] [place] [address] 46330 Glucose [Mass/Vol] 107 mg/dL High 65-99 [facility] Comment on above: Performed By: #### 2 106-3 #### [facility] ([id number]) [address] [place] [address] 05052 Potassium [Moles/Vol] 3.8 mmol/L Normal 3.5-5.0 [facility] Comment on above: Performed By: #### 2 106-3 #### [facility] ([id number]) [address] [place] [address] 00990 Protein [Mass/Vol] 8.6 g/dL High 6.0-8.0 [facility] Comment on above: Performed By: #### 2 106-3 #### [facility] ([id number]) [address] [place] [address] 38124 Sodium [Moles/Vol] 134 mmol/L Normal 134-146 [facility] Comment on above: Performed By: #### 2 106-3 #### [facility] ([id number]) [address] [place] [address] 12030 Urea nitrogen [Mass/Vol] 10 mg/dL Normal 5-23 [facility] Comment on above: Performed By: #### 2 106-3 #### [facility] ([id number]) [address] [place] [address] 87609 HCG ( test) Ql (U)o n 03-07-2024 Beta HCG ( test) Ql (U) Negative Normal NEG [facility] Comment on above: Performed By: #### 2 106-3 #### [facility] ([id number]) [address] [place] [address] 95650 URN MACROSCOPIC NURon 2023 BILIRUBIN AUDREY Negative Normal NEG [facility] Comment on above: Performed By: #### 2 106-3 #### [facility] ([id number]) [address] [place] [address] 97727 BLOOD/HGB AUDREY Trace Abnormal NEG [facility] Comment on above: Performed By: #### 2 106-3 #### [facility] ([id number]) [address] [place] [address] 90629 GLUCOSE AUDREY Negative Normal NEG [facility] Comment on above: Performed By: #### 2 106-3 #### [facility] ([id number]) [address] [place] [address] 30945 KETONES AUDREY Negative Normal NEG [facility] Comment on above: Performed By: #### 2 106-3 #### [facility] ([id number]) [address] [place] [address] [place] [address] LEUKOCYTE ESTERASE AUDREY Negative Normal NEG [facility] Comment on above: Performed By: #### 2 106-3 #### [facility] ([id number]) [address] [place] [address] 58108 NITRITE AUDREY Negative Normal NEG [facility] Comment on above: Performed By: #### 2 106-3 #### [facility] ([id number]) [address] [place] [address] [place] [address] PH AUDREY 6.0 Normal 5.0-8.5 [facility] Comment on above: Performed By: #### 2 106-3 #### [facility] ([id number]) [address] [place] [address] 95716 PROTEIN AUDREY Negative Normal NEG [facility] Comment on above: Performed By: #### 2 106-3 #### [facility] ([id number]) [address] [place] [address] 60693 SPECIFIC GRAVITY AUDREY 1.010 Normal 1.003-1.035 [facility] Comment on above: Performed By: #### 2 106-3 #### [facility] ([id number]) [address] [place] [address] 40628 UROBILINOGEN AUDREY 0.2 eu/dL Normal <1.1 [facility] Comment on above: Performed By: #### 2 106-3 #### [facility] ([id number]) [address] [place] [address] 03909 CBCon 02-24-2024 ABSOLUTE BAS 0.1 10*3/uL Normal 0.0-0.2 [facility] ABSOLUTE EOS 0.2 10*3/uL Normal 0.0-0.7 [facility] ABSOLUTE NEUTROPHIL COUNT 3.2 10*3/uL Normal 1.4-6.5 [facility] Basophils/100 WBC (Bld) 0.7 % Normal 0.0-2.0 [facility] DTYPE AUTO DIFF Normal [facility] Eosinophils/100 WBC (Bld) 2.3 % Normal 0.0-11.0 [facility] Lymphocytes (Bld) [#/Vol] 3.5 10*3/uL High 1.2-3.4 [facility] Lymphocytes/100 WBC (Bld) 47.1 % Normal 20.0-55.0 [facility] Monocytes (Bld) [#/Vol] 0.5 10*3/uL Normal 0.0-0.7 [facility] Monocytes/100 WBC (Bld) 7.4 % Normal 0.0-10.0 [facility] Neutrophils/100 WBC (Bld) 42.5 % Normal 37.0-75.0 [facility] Erythrocyte distribution width (RBC) [Ratio] 17.1 % High 11.5-14.5 [facility] Hematocrit (Bld) [Volume fraction] 33.6 % Low 36.0-48.0 [facility] Hemoglobin (Bld) [Mass/Vol] 10.3 g/dL Low 12.0-16.0 [facility] MCH (RBC) [Entitic mass] 22.7 pg Low 26.0-35.0 [facility] MCHC (RBC) [Mass/Vol] 30.8 g/dL Normal 27.0-37.0 [facility] MCV (RBC) [Entitic vol] 73.5 fL Low 80.0-100.0 [facility] Platelet mean volume (Bld) [Entitic vol] 7.9 fL Normal 7.4-11.0 [facility] Platelets (Bld) [#/Vol] 466 10*3/uL High 130-400 [facility] RBC (Bld) [#/Vol] 4.57 10*6/uL Normal 4.0-5.4 [facility] WBC (Bld) [#/Vol] 7.4 10*3/uL Normal 3.6-11.0 [facility] CBC, EDIF, PLATELETon 2023 ABSOLUTE BASOPHIL COUNT 0.1 10*3/uL 0.0 - 0.2 10*3/uL [facility] Basophils/100 WBC (Bld) 0.7 % 0.0 - 2.0 % [facility] Differential cell count method Nom (Bld) AUTO DIFF % [facility] Eosinophils (Bld) [#/Vol] 0.2 10*3/uL 0.0 - 0.7 10*3/uL [facility] Eosinophils/100 WBC (Bld) 2.3 % 0.0 - 11.0 % [facility] Erythrocyte distribution width (RBC) [Ratio] 17.1 % High 11.5 - 14.5 % [facility] Hematocrit (Bld) [Volume fraction] 33.6 % Low 36.0 - 48.0 % [facility] Hemoglobin (Bld) [Mass/Vol] 10.3 g/dL Low [facility] Interpretation and review of laboratory results Abnormal [facility] Lymphocytes (Bld) [#/Vol] 3.5 10*3/uL High 1.2 - 3.4 10*3/uL [facility] Lymphocytes/100 WBC (Bld) 47.1 % 20.0 - 55.0 % [facility] MCH (RBC) [Entitic mass] 22.7 pg Low 26.0 - 35.0 PG [facility] MCHC (RBC) [Mass/Vol] 30.8 g/dL [facility] MCV (RBC) [Entitic vol] 73.5 fL Low A [facility] Monocytes (Bld) [#/Vol] 0.5 10*3/uL 0.0 - 0.7 10*3/uL [facility] Monocytes/100 WBC (Bld) 7.4 % 0.0 - 10.0 % [facility] Neutrophils (Bld) [#/Vol] 3.2 10*3/uL 1.4 - 6.5 10*3/uL [facility] Neutrophils/100 WBC (Bld) 42.5 % 37.0 - 75.0 % [facility] Platelet mean volume (Bld) [Entitic vol] 7.9 fL [facility] Platelets (Bld) [#/Vol] 466 10*3/uL High 130 - 400 10*3/uL [facility] RBC (Bld) [#/Vol] 4.57 10*6/uL 4.0 - 5.4 10*6/uL [facility] WBC (Bld) [#/Vol] 7.4 10*3/uL 3.6 - 11.0 10*3/uL [facility] CMP FASTINGon 02-24-2024 A:G RATIO 1.1 RATIO Low 1.3-2.2 [facility] ALBUMIN 4.1 G/dl Normal 3.5-5.0 [facility] ALP [Catalytic activity/Vol] 62 U/L Normal 38-126 [facility] ALT [Catalytic activity/Vol] 23 U/L Normal <35 [facility] AST [Catalytic activity/Vol] 45 U/L High 14-36 [facility] Bilirubin [Mass/Vol] 0.3 mg/dL Normal 0.2-1.3 [facility] Calcium [Mass/Vol] 8.8 mg/dL Normal 8.4-10.2 [facility] Chloride [Moles/Vol] 110 mmol/L High 98-107 [facility] Comment on above: Result Comment: Salvador carlson note: Triglyceride levels of 600mg/dL or higher may positively bias chloride results by approximately 2.1 mmol CO2 [Moles/Vol] 23 mmol/L Normal 22-30 [facility] Creatinine [Mass/Vol] 0.80 mg/dL Normal 0.7-1.2 [facility] EST. GFR, 104 ml/min/1.73sq.m Normal [facility] EST. GFR,Non 86 ml/min/1.73sq.m Normal [facility] GFR Information Average GFR for 30-3 9 years old = 107. Normal [facility] Comment on above: Result Comment: Quarter Supervisor franklin Kidney disease, GFR = <60. Kidney failure, GFR = <15. The GFR estimate is not adjusted for extreme body surface area or acute process, nor has it been validated for women or ethnic groups other than and . Glucose [Mass/Vol] 81 mg/dL Normal 70-100 [facility] Comment on above: Result Comment: NORMAL <100 mg/dL PREDIABETES 101-126 mg/dL DIABETES 126 mg/dL or higher Potassium [Moles/Vol] 3.9 mmol/L Normal 3.5-5.1 [facility] Protein [Mass/Vol] 7.7 g/dL Normal 6.3-8.2 [facility] Sodium [Moles/Vol] 141 mmol/L Normal 137-145 [facility] Urea nitrogen [Mass/Vol] 9 mg/dL Normal 7-20 [facility] COMPREHENSIVE METABOLIC PANE Van 02-24-2024 Albumin [Mass/Vol] 4.1 G/dl 3.5 - 5.0 G/dl [facility] Albumin/Globulin [Mass ratio] 1.1 {ratio} Low [facility] ALP [Catalytic activity/Vol] 62 U/L [facility] ALT [Catalytic activity/Vol] 23 U/L NINF [facility] AST [Catalytic activity/Vol] 45 U/L High [facility] Bilirubin [Mass/Vol] 0.3 mg/dL [facility] Calcium [Mass/Vol] 8.8 mg/dL [facility] Chloride [Moles/Vol] 110 mmol/L High [facility] Comment on above: Please note: Triglyc eride levels of 600mg/dL or higher may positively bias chloride results by approximately 2.1 mmol CO2 [Moles/Vol] 23 mmol/L [facility] Creatinine [Mass/Vol] 0.80 mg/dL [facility] GFR COMMENT Average GFR for 30-3 9 years old = 107. [facility] Comment on above: Chronic Kidney disea se, GFR = <60. Kidney failure, GFR = <15. The GFR estimate is not adjusted for extreme body surface area or acute process, nor has it been validated for women or ethnic groups other than and . GFR/1.73 sq M.predicted among blacks MDRD (S/P/Bld) [Vol rate/Area] 104 mL/min/{1.73_m2} ml/min/1.73 sq.m [facility] GFR/1.73 sq M.predicted among non-blacks MDRD (S/P/Bld) [Vol rate/Area] 86 mL/min/{1.73_m2} ml/min/1.73 sq.m [facility] Glucose post fast [Mass/Vol] 81 mg/dL [facility] Comment on above: NORMAL <100 mg/dL PREDIABETES 101-126 mg/dL DIABETES 126 mg/dL or higher Interpretation and review of laboratory results Abnormal [facility] Potassium [Moles/Vol] 3.9 mmol/L [facility] Protein [Mass/Vol] 7.7 g/dL [facility] Sodium [Moles/Vol] 141 mmol/L [facility] Urea nitrogen [Mass/Vol] 9 mg/dL [facility] HCG ( test) Ql (U)o n 02-24-2024 [facility] HCG QUALITATIVE, URINEon HCG ( test) Ql (U) Negative [facility] No Panel Informationon 02-23 Interpretation and review of laboratory results Abnormal [facility] URINALYSIS, MACROon 02-24-20 24 Bilirubin Ql (U) Negative NEGATIVE [facility] Clarity (U) CLEAR CLEAR [facility] Color (U) YELLOW YELLOW [facility] Glucose Test strip (U) [Mass/Vol] Negative NEGATIVE mg/dl [facility] Hemoglobin Ql (U) Negative NEGATIVE [facility] Ketones (U) [Mass/Vol] Negative NEGAT NAYE mg/dl [facility] Leukocyte esterase Test strip Ql (U) MODERATE Abnormal NEGATIVE [facility] Nitrite Ql (U) Negative NEGATIVE [facility] pH (U) 6.0 [pH] 5.0 - 7.0 [facility] Protein Ql (U) Negative NEGATIVE mg/dl [facility] Specific gravity (U) [Rel density] 1.010 1.010 - 1.025 [facility] Urobilinogen (U) [Mass/Vol] 0.2 mg/dL [facility] URINE HCG QUALon 02-24-2024 Beta HCG ( test) Ql (U) Negative Normal [facility] URINE MACROSCOPICon 02-24-20 24 Bilirubin Ql (U) Negative Normal NEGATIVE [facility] Clarity (U) CLEAR Normal CLEAR [facility] Color (U) YELLOW Normal YELLOW [facility] Glucose Ql (U) Negative Normal NEGATIVE [facility] pH (U) 6.0 [pH] Normal 5.0-7.0 [facility] URINE HEMOGLOBIN Negative Normal NEGATIVE [facility] URINE KETONE Negative Normal NEGATIVE [facility] URINE LEUKOTEST MODERATE Abnormal NEGATIVE [facility] URINE NITRATES Negative Normal NEGATIVE [facility] URINE SPEC GRAVITY 1.010 Normal 1.010-1.025 [facility] URINE TOTAL PROTEIN Negative Normal NEGATIVE [facility] Urobilinogen Qn (U) 0.2 {Ivone'U}/dL Normal 0.2-1.0 [facility] URINE MICROSCOPICon 02-24-20 24 Bacteria LM.HPF (Urine sed) [#/Area] TRACE Abnormal NEGATIVE [facility] Casts LM.LPF (Urine sed) [#/Area] NONE NONE /LPF [facility] Crystals LM Nom (Urine sed) NONE NONE [facility] Epithelial cells LM Ql (Urine sed) 5 TO 10 /HPF [facility] Mucus Ql (Urine sed) Negative NEGATIVE [facility] RBC LM.HPF (Urine sed) [#/Area] Negative NEGATIVE /HPF [facility] Urine sediment comments LM Edson (Urine sed) CULTURE CRITERIA NOT MET, NO CULTURE PERFORMED. [facility] WBC LM.HPF (Urine sed) [#/Area] 1 TO 5 NEGATIVE /HPF [facility] BACTERIA TRACE Abnormal NEGATIVE [facility] CASTS NONE Normal NONE [facility] CRYSTAL NONE Normal NONE [facility] Epithelial cells LM Ql (Urine sed) 5 TO 10 Normal [facility] Mucus Ql (Urine sed) Negative Normal NEGATIVE [facility] URINE COMMENT CULTURE CRITERIA NOT MET, NO CULTURE PERFORMED. Normal [facility] URINE RBC'S Negative Normal NEGATIVE [facility] URINE WBC'S 1 TO 5 Normal NEGATIVE [facility] CBCon 02-16-2024 ABSOLUTE BAS 0.1 10*3/uL Normal 0.0-0.2 [facility] ABSOLUTE EOS 0.0 10*3/uL Normal 0.0-0.7 [facility] ABSOLUTE NEUTROPHIL COUNT 2.7 10*3/uL Normal 1.4-6.5 [facility] Basophils/100 WBC (Bld) 1.4 % Normal 0.0-2.0 [facility] DTYPE AUTO DIFF Normal [facility] Eosinophils/100 WBC (Bld) 0.5 % Normal 0.0-11.0 [facility] Lymphocytes (Bld) [#/Vol] 2.1 10*3/uL Normal 1.2-3.4 [facility] Lymphocytes/100 WBC (Bld) 40.3 % Normal 20.0-55.0 [facility] Monocytes (Bld) [#/Vol] 0.3 10*3/uL Normal 0.0-0.7 [facility] Monocytes/100 WBC (Bld) 5.6 % Normal 0.0-10.0 [facility] Neutrophils/100 WBC (Bld) 52.2 % Normal 37.0-75.0 [facility] Erythrocyte distribution width (RBC) [Ratio] 17.0 % High 11.5-14.5 [facility] Hematocrit (Bld) [Volume fraction] 35.2 % Low 36.0-48.0 [facility] Hemoglobin (Bld) [Mass/Vol] 10.9 g/dL Low 12.0-16.0 [facility] MCH (RBC) [Entitic mass] 22.6 pg Low 26.0-35.0 [facility] MCHC (RBC) [Mass/Vol] 30.9 g/dL Normal 27.0-37.0 [facility] MCV (RBC) [Entitic vol] 73.0 fL Low 80.0-100.0 [facility] Platelet mean volume (Bld) [Entitic vol] 7.3 fL Low 7.4-11.0 [facility] Platelets (Bld) [#/Vol] 529 10*3/uL High 130-400 [facility] RBC (Bld) [#/Vol] 4.81 10*6/uL Normal 4.0-5.4 [facility] WBC (Bld) [#/Vol] 5.1 10*3/uL Normal 3.6-11.0 [facility] CBC, EDIF, PLATELETon 2023 ABSOLUTE BASOPHIL COUNT 0.1 10*3/uL 0.0 - 0.2 10*3/uL [facility] Basophils/100 WBC (Bld) 1.4 % 0.0 - 2.0 % [facility] Differential cell count method Nom (Bld) AUTO DIFF % [facility] Eosinophils (Bld) [#/Vol] 0.0 10*3/uL 0.0 - 0.7 10*3/uL [facility] Eosinophils/100 WBC (Bld) 0.5 % 0.0 - 11.0 % [facility] Erythrocyte distribution width (RBC) [Ratio] 17.0 % High 11.5 - 14.5 % [facility] Hematocrit (Bld) [Volume fraction] 35.2 % Low 36.0 - 48.0 % [facility] Hemoglobin (Bld) [Mass/Vol] 10.9 g/dL Low [facility] Interpretation and review of laboratory results Abnormal [facility] Lymphocytes (Bld) [#/Vol] 2.1 10*3/uL 1.2 - 3.4 10*3/uL [facility] Lymphocytes/100 WBC (Bld) 40.3 % 20.0 - 55.0 % [facility] MCH (RBC) [Entitic mass] 22.6 pg Low 26.0 - 35.0 PG [facility] MCHC (RBC) [Mass/Vol] 30.9 g/dL [facility] MCV (RBC) [Entitic vol] 73.0 fL Low A [facility] Monocytes (Bld) [#/Vol] 0.3 10*3/uL 0.0 - 0.7 10*3/uL [facility] Monocytes/100 WBC (Bld) 5.6 % 0.0 - 10.0 % [facility] Neutrophils (Bld) [#/Vol] 2.7 10*3/uL 1.4 - 6.5 10*3/uL [facility] Neutrophils/100 WBC (Bld) 52.2 % 37.0 - 75.0 % [facility] Platelet mean volume (Bld) [Entitic vol] 7.3 fL Low [facility] Platelets (Bld) [#/Vol] 529 10*3/uL High 130 - 400 10*3/uL [facility] RBC (Bld) [#/Vol] 4.81 10*6/uL 4.0 - 5.4 10*6/uL [facility] WBC (Bld) [#/Vol] 5.1 10*3/uL 3.6 - 11.0 10*3/uL [facility] CHEM 7 FASTINGon 02-16-2024 Chloride [Moles/Vol] 109 mmol/L High 98-107 [facility] Comment on above: Result Comment: Salvador carlson note: Triglyceride levels of 600mg/dL or higher may positively bias chloride results by approximately 2.1 mmol CO2 [Moles/Vol] 22 mmol/L Normal 22-30 [facility] Creatinine [Mass/Vol] 0.70 mg/dL Normal 0.7-1.2 [facility] EST. GFR, 121 ml/min/1.73sq.m Normal [facility] EST. GFR,Non 100 ml/min/1.73sq.m Normal [facility] GFR Information Average GFR for 30-3 9 years old = 107. Normal [facility] Comment on above: Result Comment: Quarter Supervisor franklin Kidney disease, GFR = <60. Kidney failure, GFR = <15. The GFR estimate is not adjusted for extreme body surface area or acute process, nor has it been validated for women or ethnic groups other than and . Glucose [Mass/Vol] 106 mg/dL High 70-100 [facility] Comment on above: Result Comment: NORMAL <100 mg/dL PREDIABETES 101-126 mg/dL DIABETES 126 mg/dL or higher Potassium [Moles/Vol] 3.8 mmol/L Normal 3.5-5.1 [facility] Sodium [Moles/Vol] 139 mmol/L Normal 137-145 [facility] Urea nitrogen [Mass/Vol] 8 mg/dL Normal 7-20 [facility] CHEM 7 (LYTES,BUN,CREA,GLUC) on 02-16-2024 Chloride [Moles/Vol] 109 mmol/L High [facility] [employer] [facility] Comment on above: Please note: Triglyc eride levels of 600mg/dL or higher may positively bias chloride results by approximately 2.1 mmol CO2 [Moles/Vol] 22 mmol/L [facility] Creatinine [Mass/Vol] 0.70 mg/dL [facility] GFR COMMENT Average GFR for 30-3 9 years old = 107. [facility] Comment on above: Chronic Kidney disea se, GFR = <60. Kidney failure, GFR = <15. The GFR estimate is not adjusted for extreme body surface area or acute process, nor has it been validated for women or ethnic groups other than and . GFR/1.73 sq M.predicted among blacks MDRD (S/P/Bld) [Vol rate/Area] 121 mL/min/{1.73_m2} ml/min/1.73 sq.m [facility] GFR/1.73 sq M.predicted among non-blacks MDRD (S/P/Bld) [Vol rate/Area] 100 mL/min/{1.73_m2} ml/min/1.73 sq.m [facility] Glucose post fast [Mass/Vol] 106 mg/dL High [facility] Comment on above: NORMAL <100 mg/dL PREDIABETES 101-126 mg/dL DIABETES 126 mg/dL or higher Potassium [Moles/Vol] 3.8 mmol/L [facility] [employer] [facility] Sodium [Moles/Vol] 139 mmol/L [facility] [employer] [facility] Urea nitrogen [Mass/Vol] 8 mg/dL [facility] CT ABDOMEN/PELVIS WITH CONTR Agustín 02-16-2024 [...] 3. There is no obstructive uropathy. Normal [facility] CT Abdomen and Pelvis W cont [...] lesion. 3. There is no obstructive uropathy. [facility] Radiology Study observation (narrative) [facility] CT Abdomen and Pelvis W cont rast IVOrdered By: Jadon Ashraf on 02-16-2024 [facility] Work Phone: HCG ( test) Ql (U)o n 02-16-2024 [facility] HCG QUALITATIVE, URINEon HCG ( test) Ql (U) Negative [facility] HEPATIC FUNCTION PANELon Albumin [Mass/Vol] 4.5 g/dL [facility] ALP [Catalytic activity/Vol] 71 U/L [facility] ALT [Catalytic activity/Vol] 24 U/L NINF [facility] AST [Catalytic activity/Vol] 27 U/L [facility] Bilirubin [Mass/Vol] 0.5 mg/dL [facility] Bilirubin.direct [Mass/Vol] 0.5 mg/dL High [facility] Protein [Mass/Vol] 8.2 g/dL [facility] LIPASEon 02-16-2024 Lipase [Catalytic activity/Vol] 127 U/L 23 - 300 U/L [facility] LIPASE,SERUMon 02-16-2024 LIPASE,SERUM 127 U/L Normal 23-300 [facility] LIVER PANELon 02-16-2024 Albumin [Mass/Vol] 4.5 g/dL Normal 3.5-5.0 [facility] ALP [Catalytic activity/Vol] 71 U/L Normal 38-126 [facility] ALT [Catalytic activity/Vol] 24 U/L Normal <35 [facility] AST [Catalytic activity/Vol] 27 U/L Normal 14-36 [facility] Bilirubin [Mass/Vol] 0.5 mg/dL Normal 0.2-1.3 [facility] Bilirubin.indirect [Mass/Vol] 0.5 mg/dL High 0-0.4 [facility] Protein [Mass/Vol] 8.2 g/dL Normal 6.3-8.2 [facility] No Panel Informationon 02-15 Interpretation and review of laboratory results Abnormal [facility] PROTIMEon 02-16-2024 INR Coag (PPP) [Relative time] 0.89 {INR} Normal 0.88-1.14 [facility] Comment on above: Result Comment: 2.0-3.0 THERAPEUTIC RANGE 2.5-3.5 MECHANICAL VALVE RANGE PT Coag (PPP) [Time] 12.2 s Normal 11.8-14.4 [facility] PROTIME-INRon 02-16-2024 INR Coag (PPP) [Relative time] 0.89 {INR} 0.88 - 1.14 [facility] Comment on above: 2.0-3.0 THERAPEUTIC RANGE 2.5-3.5 MECHANICAL VALVE RANGE PT Coag (PPP) [Time] 12.2 s [facility] Portable XR Chest Viewson IMPRESSION: 1. [...] No free air collections underneath the diaphragms. [facility] Hospital Radiology Study observation (narrative) [facility] Portable XR Chest ViewsOrder ed By: Davi Cheng on 02-16-2024 [facility] Work Phone: URINE HCG QUALon 02-16-2024 Beta HCG ( test) Ql (U) Negative Normal [facility] XR CHEST 1 VIEW PORTABLEon 0 [...] free air collections underneath the diaphragms. Normal [facility] ED Clinical Summaryon 2023 ED Clinical Summary ED Clinical Summary [place] [id number] ED Clinical Summary Person Information [facility]: [facility] Age[facility] 39 Years : 1985 Sex: [...] 02/13/2024 01:00:19 ADDRESS: [address] [place] [id number] PHYS DOC NOTES: MEDICAL INFORMATION: Prescriptions Given: New Medications [id number], [address], [place] [id number], [phone] amoxicillin-clavulanat e (Augmentin 875 mg-125 mg Tab) [...] Pain Follow up: With: Address: When: Dental: [facility] [phone] In 3 days 02/16/2024 With: Address: When: Dental: [employer] [phone] In 3 days 02/16/2024 With: Address: When: Dental: [facility] [phone] In 3 days 02/16/2024 DIAGNOSIS: Pain, dental Normal [facility] ED Note-Physicianon 02-13-20 24 ED Note-Physician ED Note-Physician Basic Information Time [...] and was given a short prescription for [place] which she is also taking but states [...] and Complexity of Problems Differential Diagnosis: [] [facility] Data External documents reviewed: N/A My [...] already taking oral Toradol as well as [place]. We discussed using lidocaine and bupivacaine soaked [...] for 7 day(s), 14 tab(s), Refill(s) 0, [id number], 165.1, cm, 02/13/24 0:28:00 EDT, Height/Length [...] q12hr Follow-up With When Contact Information Dental: [facility] [phone] In 3 days 02/16/2024 EDT Additional Instructions: Dental: [place] [facility] [phone] In 3 days 02/16/2024 EDT Additional Instructions: Dental: [facility] [phone] In 3 days 02/16/2024 EDT Additional Instructions: [...] Diagnostic Results No qualifying data available. Normal [facility] Comment on above: Result Comment: Elec tronically Signed By: Ritesh Heath DO\.br\Date and Time Signed: 02/13/24 00:51 EDT ED Patient Summaryon 024 ED Patient Summary ED Patient Summary [place] [id number] Patient Discharge Instructions Person Information Name: ANTONIA NOYOLA Age: 39 Years Arrival Date: 02/13/2024 00:20:34 Discharge Diagnosis: Pain, dental Primary Care Physician: NONE, XXXX Provider Information Primary Provider: Ritesh Heath DO Advanced Clinical Informatics Manager:None The exam and treatment you received in the Emergency Department were for an urgent problem and are not intended as complete care. It is important that you follow up with a doctor, nurse practitioner, or physician?s optometric assistant for ongoing care. If your symptoms become worse or you do not improve as expected and you are unable to reach your usual health care provider, you should return to the Emergency Department. We are available 24 hours a day. ANTONIA NOYOLA has been given the following list of patient education materials, prescriptions and follow-up instructions: Follow-up Instructions: With: Address: When: Dental: [facility] [phone] In 3 days 02/16/2024 With: Address: When: Dental: [facility] [phone] In 3 days 02/16/2024 With: Address: When: Dental: [facility] [phone] In 3 days 02/16/2024 In the event that this physician does not participate in your insurance network, please consult with your insurance company to find a nearby participating provider. Patient Education Materials: Dental Pain A MESSAGE TO ALL PATIENTS REGARDING OPIOIDS PRESCRIPTION OPIOIDS: WHAT YOU NEED TO KNOW Prescription opioids can be used to help relieve frcmfqov-ry-proosa pain and are often prescribed following a [...] care professi (more content not included)... Normal [facility] C REACTIVE PROTEINon 024 CRP [Mass/Vol] mg/L Normal 0.000-0.744 [facility] Comment on above: Performed By: #### C BCA, CMP, 3040-3, 03288-9, #### [facility] ([id number]) [address] [place] [address] 36925 CBC AND AUTO DIFFon 01-27-20 24 ABSOLUTE BASOPHIL 0.1 X10E9/L Normal 0.0-0.2 [facility] Comment on above: Performed By: #### C BCA, CMP, 3040-3, 99373-7, 1987-10, #### [facility] ([id number]) [address] [place] [address] 99773 ABSOLUTE NEUTROPHIL 4.6 X10E9/L Normal 1.5-6.6 [facility] Comment on above: Performed By: #### C BCA, CMP, 3040-3, 33096-5, #### [facility] ([id number]) [address] [place] [address] 33188 Basophils/100 WBC (Bld) 1.0 % Normal [facility] Comment on above: Performed By: #### C HEATH, CMP, 0-3, , 1987-10, #### [facility] ([id number]) [address] [place] [address] 55307 Eosinophils (Bld) [#/Vol] 0.1 10*3/uL Normal 0.0-0.4 [facility] Comment on above: Performed By: #### C HEATH, CMP, 3039-08, , 1987-10, #### [facility] ([id number]) [address] [place] [address] 16586 Eosinophils/100 WBC (Bld) 1.8 % Normal [facility] Comment on above: Performed By: #### C HEATH, [facility], 3039-3, , 1987-10, #### [facility] ([id number]) [address] [place] [address] 68171 Erythrocyte distribution width (RBC) [Ratio] 17.1 % High 11.5-15.0 [facility] Comment on above: Performed By: #### Leila JOE, CMP, 3039-3, , 1987-10, #### [facility] ([id number]) [address] [place] [address] 38441 Hematocrit (Bld) [Volume fraction] 34.8 % Low 35-47 [facility] Comment on above: Performed By: #### C BCA, CMP, 0-3, , 1987-10, #### [facility] ([id number]) [address] [place] [address] 72214 Hemoglobin (Bld) [Mass/Vol] 10.9 g/dL Low 11.7-15.5 [facility] Comment on above: Performed By: #### C BCA, CMP, 0-3, , 1987-10, #### [facility] ([id number]) [address] [place] [address] 34130 Lymphocytes (Bld) [#/Vol] 1.9 10*3/uL Normal 1.0-3.5 [facility] Comment on above: Performed By: #### C BCA, CMP, 0-3, , 1987-10, #### [facility] ([id number]) [address] [place] [address] 46534 Lymphocytes/100 WBC (Bld) 26.4 % Normal [facility] Comment on above: Performed By: #### C BCA, CMP, 3039-3, , 1987-10, #### [facility] ([id number]) [address] [place] [address] 70973 MCH (RBC) [Entitic mass] 22.7 pg Low 27-34 [facility] Comment on above: Performed By: #### C BCA, CMP, 0-3, , 1987-10, #### [facility] ([id number]) [address] [place] [address] 30101 MCHC (RBC) [Mass/Vol] 31.3 g/dL Low 32-36 [facility] Comment on above: Performed By: #### C BCA, CMP, 0-3, , 1987-10, #### [facility] ([id number]) [address] [place] [address] 89761 MCV (RBC) [Entitic vol] 72 fL Low 80-100 [facility] Comment on above: Performed By: #### C BCA, CMP, 0-3, , 1987-10, #### [facility] ([id number]) [address] [place] [address] 83534 Monocytes (Bld) [#/Vol] 0.4 10*3/uL Normal 0-0.9 [facility] Comment on above: Performed By: #### C BCA, CMP, 3040-3, , 1987-10, #### [facility] ([id number]) [address] [place] [address] 16191 Monocytes/100 WBC (Bld) 5.8 % Normal [facility] Comment on above: Performed By: #### C BCA, CMP, 3039-3, , 1987-10, #### [facility] ([id number]) [address] [place] [address] 18048 Neutrophils/100 WBC (Bld) 65.0 % Normal [facility] Comment on above: Performed By: #### C BCA, CMP, 0-3, , 1987-10, #### [facility] ([id number]) [address] [place] [address] 28730 Platelet mean volume (Bld) [Entitic vol] 7.6 fL Normal 7-12 [facility] Comment on above: Performed By: #### Leila BCA, CMP, 0-3, , 1987-10, #### [facility] ([id number]) [address] [place] [address] 40621 Platelets (Bld) [#/Vol] 532 10*3/uL High 150-450 [facility] Comment on above: Performed By: #### C BCA, CMP, 3040-3, , 1987-10, #### [facility] ([id number]) [address] [place] [address] 00899 RBC COUNT 4.80 X10E12/L Normal 3.80-5.20 [facility] Comment on above: Performed By: #### C BCA, CMP, 3040-3, , 1987-10, #### [facility] ([id number]) [address] [place] [address] WBC (Bld) [#/Vol] 7.0 10*3/uL Normal 4.0-11.0 [facility] Comment on above: Performed By: #### C BCA, CMP, 0-3, , 1987-10, #### [facility] ([id number]) [address] [place] [address] CHLAMYDIA/GC BY PCRon 2023 CHLAMYDIA/GC BY PCR [...] are dependent on adequate specimen collection. Normal [facility] Comment on above: Performed By: #### C GS #### [facility] ([id number]) [address] [place] [address], [address] [place] [address] COMPREHENSIVE METABOLIC PANE [facility] 01-27-2024 Albumin [Mass/Vol] 4.3 g/dL Normal 3.2-5.3 [facility] Comment on above: Performed By: #### C BCA, CMP, 3040-3, , 1987-10, #### [facility] ([id number]) [address] [place] [address] ALP [Catalytic activity/Vol] 76 U/L Normal 39-130 [facility] Comment on above: Performed By: #### C BCA, CMP, 3040-3, , 1987-10, #### [facility] ([id number]) [address] [place] [address] 86091 ALT [Catalytic activity/Vol] 28 U/L Normal 0-31 [facility] Comment on above: Performed By: #### C BCA, CMP, 3040-3, 72664-7, 1987-10, #### [facility] ([id number]) [address] [place] [address] 36902 Anion gap [Moles/Vol] 7 mmol/L Normal 5-15 [facility] Comment on above: Performed By: #### C BCA, CMP, 3040-3, 45240-5, 1987-10, #### [facility] ([id number]) [address] [place] [address] 71706 AST [Catalytic activity/Vol] 20 U/L Normal 0-41 [facility] Comment on above: Performed By: #### C BCA, CMP, 3040-3, 61588-9, 1987-10, #### [facility] ([id number]) [address] [place] [address] 66564 Bilirubin [Mass/Vol] 1.0 mg/dL Normal 0.3-1.2 [facility] Comment on above: Performed By: #### C BCA, CMP, 3040-3, 29004-8, 1987-10, #### [facility] ([id number]) [address] [place] [address] 29279 Calcium [Mass/Vol] 9.0 mg/dL Normal 8.5-10.5 [facility] Comment on above: Performed By: #### C BCA, CMP, 3040-3, 54891-1, 1987-10, #### [facility] ([id number]) [address] [place] [address] 42893 Chloride [Moles/Vol] 102 mmol/L Normal 98-109 [facility] Comment on above: Performed By: #### C HEATH, STEVE, 3039-3, , 1987-10, #### [facility] ([id number]) [address] [place] [address] CO2 [Moles/Vol] 22 mmol/L Normal 22-32 [facility] Comment on above: Performed By: #### C HEATH, STEVE, 3039-3, , 1987-10, #### [facility] ([id number]) [address] [place] [address] 08320 Creatinine [Mass/Vol] 0.76 mg/dL Normal 0.40-1.00 [facility] Comment on above: Result Comment: METH OD TRACEABLE TO IDMS STANDARD Performed By: #### C STEVE JOE, 3, , 1987-10, #### [facility] ([id number]) [address] [place] [address] 87245 eGFR (CKD-EPI) NON-RACE DEPENDENT >90 Normal >59 [facility] Comment on above: Result Comment: Reported eGFR is based on the CKD-EPI 2020 equation that does not use a race coefficient. Performed By: #### C HEATH, STEVE, 3039-3, , 1987-10, #### [facility] ([id number]) [address] [place] [address] 55050 Glucose [Mass/Vol] 109 mg/dL High 65-99 [facility] Comment on above: Performed By: #### C HEATH, CMP, 3039-3, , 1987-10, #### [facility] ([id number]) [address] [place] [address] 48471 Potassium [Moles/Vol] 4.1 mmol/L Normal 3.5-5.0 [facility] Comment on above: Performed By: #### C BCA, CMP, 3040-3, 95243-4, 1987-10, #### [facility] ([id number]) [address] [place] [address] 68302 Protein [Mass/Vol] 8.2 g/dL High 6.0-8.0 [facility] Comment on above: Performed By: #### C BCA, CMP, 3040-3, 59351-0, 1987-10, #### [facility] ([id number]) [address] [place] [address] 10270 Sodium [Moles/Vol] 131 mmol/L Low 134-146 [facility] Comment on above: Performed By: #### C BCA, CMP, 3039-3, , 1987-10, #### [facility] ([id number]) [address] [place] [address] 42846 Urea nitrogen [Mass/Vol] 6 mg/dL Normal 5-23 [facility] Comment on above: Performed By: #### C BCA, CMP, 0-3, , 1987-10, #### [facility] ([id number]) [address] [place] [address] 19228 HCG ( test) Ql (U)o n 01-27-2024 Beta HCG ( test) Ql (U) Negative Normal NEG [facility] Comment on above: Performed By: #### 2 106-3 #### [facility] ([id number]) [address] [place] [address] 08200 LIPASEon 01-27-2024 Lipase [Catalytic activity/Vol] 33 U/L Normal 17-40 [facility] Comment on above: Performed By: #### C BCA, CMP, 3040-3, 42297-8, 1987-10, #### [facility] ([id number]) [address] [place] [address] 27454 Lactate (P arely) [Moles/Vol]o n 01-27-2024 LACTATE W/REFLEX 1.5 mmol/L Normal 0.4-2.0 [facility] Comment on above: Result Comment: Result did not trigger repeat Lactate, re-order if needed. Performed By: #### C BCA, CMP, 3040-3, 81499-2, 1987-10, #### [facility] ([id number]) [address] [place] [address] 47895 MAGNESIUMon 01-27-2024 Magnesium [Mass/Vol] 2.0 mg/dL Normal 1.8-2.6 [facility] Comment on above: Performed By: #### C BCA, CMP, 3040-3, 19988-5, 1987-10, #### [facility] ([id number]) [address] [place] [address] 40768 URINE CULTUREon 01-27-2024 Bacteria identified Cx Nom (U) CULTURE RESULTS <10,000 ORGANISMS/ML NORMAL URO GENITAL RASHID Normal [facility] Comment on above: Performed By: #### 2 106-3 #### [facility] ([id number]) [address] [place] [address] 51946 URN MACROSCOPIC NURon 2023 BILIRUBIN AUDREY Negative Normal NEG [facility] Comment on above: Performed By: #### N UM #### [facility] ([id number]) [address] [place] [address] 59542 BLOOD/HGB AUDREY Negative Normal NEG [facility] Comment on above: Performed By: #### N UM #### [facility] ([id number]) [address] [place] [address] 21759 GLUCOSE AUDREY Negative Normal NEG [facility] Comment on above: Performed By: #### N UM #### [facility] ([id number]) [address] [place] [address] [place] [address] KETONES AUDREY Negative Normal NEG [facility] Comment on above: Performed By: #### N UM #### [facility] ([id number]) [address] [place] [address] [place] [address] LEUKOCYTE ESTERASE AUDREY Negative Normal NEG [facility] Comment on above: Performed By: #### N UM #### [facility] ([id number]) [address] [place] [address] [place] [address] NITRITE AUDREY Negative Normal NEG [facility] Comment on above: Performed By: #### N UM #### [facility] ([id number]) [address] [place] [address] 75022 PH AUDREY 8.5 Normal 5.0-8.5 [facility] Comment on above: Performed By: #### N UM #### [facility] ([id number]) [address] [place] [address] [place] [address] PROTEIN AUDREY Negative Normal NEG [facility] Comment on above: Performed By: #### N UM #### [facility] ([id number]) [address] [place] [address] [place] [address] SPECIFIC GRAVITY AUDREY 1.015 Normal 1.003-1.035 [facility] Comment on above: Performed By: #### N UM #### [facility] ([id number]) [address] [place] [address] [place] [address] UROBILINOGEN AUDREY 0.2 eu/dL Normal <1.1 [facility] Comment on above: Performed By: #### N UM #### [facility] ([id number]) [address] [place] [address] [place] [address] US PELVIC WITH TRANSVAGINAL AND DUPLEXon 01-27-2024 [...] Nixon MD on 01/27/2024 2:39 PM Normal [facility] VAGINITIS PANEL PCRon 2023 VAGINITIS PANEL [...] clinical presentation to determine patient diagnosis. Normal [facility] Comment on above: Performed By: #### 2 106-3 #### [facility] ([id number]) [address] [facility], [place] [address] CT sinus wo conon 11-25-2023 CT sinus wo con [facility] Main [place] [address] [place] [address] Scan Report Signed Patient: Antonia Noyola MR#: [id number] 757 : 1985 Acct:[id number] Age/Sex: 38 / F ADM Date: 11/25/23 Loc: CT Room: Type: [facility] Attending Dr: Jennifer Duran DO Copies to: [...] Davi Figueroa M.D.11/25/2023 4:01 PM Dictation Location: [place] [address] Transcribed By: [facility] 11/25/23 1601 Dictated By: Davi Figueroa DO 11/25/23 1555 Signed By: 11/25/23 1601 Normal [facility] C Urineon 10-02-2023 Bacteria identified Cx Nom [...] Locations R1: This test was performed at: [facility], [address] [place] [address], [address]- , , [facility] Comment on above: Performed By: #### 2 838257 #### [facility] [address] [place] [address] 09132 BMPon 09-30-2023 Anion gap [Moles/Vol] 13 mmol/L Normal 6-16 [facility] Comment on above: Performed By: #### 2 985016, 1835899, 57444620, 6158649, 5125718 ####[facility] [address] [place] [address] Calcium [Mass/Vol] 9.1 mg/dL Normal 8.9-11.1 [facility] Comment on above: Performed By: #### 2 045639, 3608775, 20043916, 1473101, 0169867 ####[facility] [address] [place] [address] Chloride [Moles/Vol] 105 mmol/L Normal 101-111 [facility] Comment on above: Performed By: #### 2 025309, 2462893, 65761729, 9483448, 9081278 ####[facility] [address] [place] [address] CO2 [Moles/Vol] 23 mmol/L Normal 21-31 [facility] Comment on above: Performed By: #### 2 021545, 2209694, 15404604, 0243391, 1337672 ####[facility] [address] [place] [address] Creatinine [Mass/Vol] 0.8 mg/dL Normal 0.5-1.3 [facility] Comment on above: Performed By: #### 2 092943, 3903117, 60092081, 3866866, 4796495 ####[facility] [address] [place] [address] Glucose [Mass/Vol] 95 mg/dL Normal 55-199 [facility] Comment on above: Performed By: #### 2 704383, 4565850, 86630745, 5971919, 6694455 ####[facility] [address] [place] [address] Potassium [Moles/Vol] 3.1 mmol/L Low 3.5-5.3 [facility] Comment on above: Performed By: #### 2 672682, 1491833, 25766148, 2962519, 5639130 ####[facility] [address] [place] [address] Sodium [Moles/Vol] 138 mmol/L Normal 135-145 [facility] Comment on above: Performed By: #### 2 261850, 7187595, 18501685, 5949607, 7358568 ####[facility] [address] [place] [address] Urea nitrogen [Mass/Vol] 7 mg/dL Normal 5-21 [facility] Comment on above: Performed By: #### 2 819231, 0846395, 41037423, 9672308, 5055619 ####[facility] [address] [place] [address] Urea nitrogen/Creatinine [Mass ratio] 9 No Units Low 10-20 [facility] Comment on above: Performed By: #### 2 004481, 0747452, 42177492, 4562526, 1539788 ####[facility] [address] [place] [address] CBC w/ Auto Diffon 4 Basophils/100 WBC (Bld) 0.3 % Normal 0.0-2.0 [facility] Comment on above: Performed By: #### 2 677745, 1375280, 83476121, 3656441, 9044705 ####[address] [address] Basophils/Leukocytes Auto (Bld) [Pure # fraction] 0.0 E9/L Normal 0.0-0.2 [facility] Comment on above: Performed By: #### 2 859409, 9771861, 12053427, 0455125, 5208834 ####[place] [address]657 Eosinophils (Bld) [#/Vol] 0.0 E9/L Normal 0.0-0.5 [facility] Comment on above: Performed By: #### 2 562078, 2208720, 69210352, 9213664, 2870794 ####[address] [address] Eosinophils/100 WBC (Bld) 0.4 % Normal 0.0-8.0 [facility] Comment on above: Performed By: #### 2 812232, 6247313, 01358055, 1228651, 9340387 ####[place] [address]657 Erythrocyte distribution width (RBC) [Ratio] 18.3 % High 10.9-14.2 [facility] Comment on above: Performed By: #### 2 775239, 7622647, 84464096, 5446752, 4804442 ####[address] [address] Hematocrit (Bld) [Volume fraction] 32.6 % Low 34.0-46.0 [facility] Comment on above: Performed By: #### 2 485245, 7697699, 66527403, 2754548, 4689581 ####[address] [address] Hemoglobin (Bld) [Mass/Vol] 10.3 g/dL Low 12.0-16.0 [facility] Comment on above: Performed By: #### 2 975702, 1114820, 72717193, 1009192, 2977626 ####[address] [address] Lymphocytes (Bld) [#/Vol] 4.1 E9/L High 1.0-4.0 [facility] Comment on above: Performed By: #### 2 799550, 3224467, 21623887, 3177958, 1148215 ####[address] [address] Lymphocytes/100 WBC (Bld) 39.5 % Normal 14.0-50.0 [facility] Comment on above: Performed By: #### 2 605538, 7118227, 50934538, 6344951, 8689456 ####[address] [address] MCH (RBC) [Entitic mass] 23.7 pg Low 27.0-34.0 [facility] Comment on above: Performed By: #### 2 725248, 2845146, 94743095, 4191193, 5824661 ####[address] [address] MCHC (RBC) [Mass/Vol] 31.7 g/dL Normal 31.4-36.0 [facility] Comment on above: Performed By: #### 2 434186, 8361040, 07234501, 0944159, 1634582 ####[address] [address] MCV (RBC) [Entitic vol] 74.9 fL Low 80.0-100.0 [facility] Comment on above: Performed By: #### 2 538738, 1701102, 71753321, 0405614, 8384907 ####[address] [place] [address] Monocytes (Bld) [#/Vol] 0.7 E9/L Normal 0.2-1.0 [facility] Comment on above: Performed By: #### 2 017671, 8630532, 69826165, 7577933, 2355838 ####[address] [address] Neutrophils (Bld) [#/Vol] 5.4 E9/L Normal 2.0-7.5 [facility] Comment on above: Performed By: #### 2 205731, 4089897, 25547099, 5490874, 2165469 ####[address] [address] Neutrophils/100 WBC (Bld) 53.1 % Normal 36.0-75.0 [facility] Comment on above: Performed By: #### 2 273348, 2278317, 82299795, 6720959, 9397867 ####[address] [address] Platelet 476.0 E9/L Normal 150.0-500.0 [facility] Comment on above: Performed By: #### 2 854526, 0559006, 92989289, 1238927, 8173673 ####[address] [address] Platelet mean volume (Bld) [Entitic vol] 7.7 fL Normal 6.4-10.8 [facility] Comment on above: Performed By: #### 2 773382, 0641937, 53585936, 0543582, 7120557 ####[address] [address] RBC (Bld) [#/Vol] 4.3 E12/L Normal 4.3-5.9 [facility] Comment on above: Performed By: #### 2 945369, 4658497, 14282182, 9125976, 5228391 ####[address] [address] WBC corrected for nucl RBC Auto (Bld) [#/Vol] 10.3 E9/L Normal 4.0-11.0 [facility] Comment on above: Performed By: #### 2 [id number], [id number], [id number], [id number], [id number] ####[facility] [id number] [place] [address] CHEMISTRYOrdered By: SYSTEM SYSTEM on 09-30-2023 Albumin [...] Remisol Chem Discharge Instructionson Discharge Instructions [id number]. [id number] Normal [facility] ED Clinical Summaryon 2023 ED Clinical Summary [place] [id number] ED Clinical Summary Person Information Name: ANTONIA NOYOLA/[facility] Age: 38 Years : 1985 Sex: Female Language: Citizen Of [place] PCP: NONE, XXXX Marital Status: MRN: [id number] Visit Id: Visit Reason: Medical problem - [...] 09/30/2023 02:15:05 ADDRESS: [address] [place] [id number] PHYS DOC NOTES: MEDICAL INFORMATION: Prescriptions Given: [...] Follow up: With: Address: When: Rose ENCISO, [facility] [address], [place] [address] Business (1) In 3 days 10/03/2023 DIAGNOSIS: AP (abdominal pain); Ovarian cyst Normal [facility] ED Note-Physicianon 09-30-19 ED Note-Physician Basic Information [...] taking oral tramadol, Toradol, Bentyl, and a [place] at home and has had no significant relief. She does have some nausea but no vomiting. No change in bowel movements. No urinary symptoms. She reports that she has had multiple ovarian cysts and did schedule a [employer] appointment for possible hysterectomy but that is [...] and Complexity of Problems Differential Diagnosis: [] [facility] Data External documents reviewed: N/A My [...] of 3.1 but is otherwise overall reassuring. 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 Royal and another [employer] in the area to see if he [...] mg/2 mL (more content not included)... Normal [facility] Comment on above: Result Comment: Elec tronically [...] Follow these instructions at home: ? Take blir-err-mryyeco and prescription medicines only as told by [...] provider. Document Revised: 11/06/2020 Document Reviewed: 11/06/2020 DossierView Patient Education ? 2022 OpenWhere. Normal [facility] ED Patient Summaryon 024 ED Patient Summary [address] [address] Patient Discharge Instructions Person Information Name: ANTONIA NOYOLA Age: 38 Years Arrival Date: 09/29/2023 23:38:37 Discharge Diagnosis: AP (abdominal pain); Ovarian cyst Primary Care Physician: NONE, XXXX Provider Information Primary Provider: Ritesh Heath DO Advanced Clinical Informatics Manager:None The exam and treatment you received in the Emergency Department were for an urgent problem and are not intended as complete care. It is important that you follow up with a doctor, nurse practitioner, or physician?s optometric assistant for ongoing care. If your symptoms [...] Follow-up Instructions: With: Address: When: Rose Royal [address] [place] [address], [address] [address] Business (1) In 3 days 10/03/2023 In the event that this physician does not participate in your insurance network, please consult with your insurance company to find a nearby participating provider. Patient Education Materials: Ovarian Cyst A MESSAGE TO ALL PATIENTS REGARDING OPIOIDS PRESCRIPTION OPIOIDS: WHAT YOU NEED TO KNOW Prescription opioids can be used to help relieve mzonldqt-xr-vnbrqu pain and are often prescribed following a [...] be struggling with addiction, tell your health infant childcare provider and ask for guidance or call [facility]?S National Helpline at 8-047-263-EWJN. s Source: [place] Department o (more content not included)... Normal [facility] HEMATOLOGYOrdered By: SYSTEM SYSTEM on 09-30-2023 Basophils/100 [...] 09-30-2023 Albumin [Mass/Vol] 4.4 g/dL Normal 3.3-5.0 [facility] Comment on above: Performed By: #### 2 623882, 9059018, 31783846, 0770382, 1278892 ####[facility] [address] [place] [address] Albumin/Globulin (S) [Mass conc ratio] 1.5 Normal 1.1-2.2 [facility] Comment on above: Performed By: #### 2 289654, 9156183, 04877053, 1074251, 9190300 ####[facility] [address] [place] [address] ALP [Catalytic activity/Vol] 64 Int._Unit/L Normal 21-98 [facility] Comment on above: Performed By: #### 2 415141, 7773386, 71497528, 6652516, 0395972 ####[facility] [address] [place] [address] ALT No additional P-5'-P [Catalytic activity/Vol] 9 Int._Unit/L Normal 6-46 [facility] Comment on above: Performed By: #### 2 874558, 3250908, 58069665, 7350999, 0352962 ####[address] [address] [place] [address] AST [Catalytic activity/Vol] 12 Int._Unit/L Normal 5-43 [facility] Comment on above: Performed By: #### 2 704295, 3833202, 64363448, 6255992, 8943583 ####[facility] [address] [place] [address] Bilirubin [Mass/Vol] 0.2 mg/dL Normal 0.0-1.1 [facility] Comment on above: Performed By: #### 2 500373, 7403370, 66206329, 0926464, 3079500 ####[facility] [address] [place] [address] Bilirubin.direct [Mass/Vol] 0.0 mg/dL Normal 0.0-0.4 [facility] Comment on above: Performed By: #### 2 386120, 5644394, 91956220, 3036106, 1658521 ####[facility] [address] [place] [address] Bilirubin.indirect [Mass or moles/Vol] 0.2 mg/dL Normal 0.1-0.9 [facility] Comment on above: Performed By: #### 2 073746, 5852760, 29489455, 6922390, 3009687 ####[facility] [address] [place] [address] Globulin (S) [Mass/Vol] 3.0 g/dL Normal 1.4-4.0 F [facility] Comment on above: Performed By: #### 2 213400, 6179383, 70103573, 2471736, 1470098 ####[facility] [address] [place] [address] Protein [Mass/Vol] 7.4 g/dL Normal 6.0-7.8 [facility] Comment on above: Performed By: #### 2 309420, 7235238, 24450349, 7838653, 6669157 ####[facility] [address] [place] [address] Lipase Levelon 09-30-2023 Lipase [Catalytic activity/Vol] 61 U/L High 13-58 [facility] Comment on above: Performed By: #### 2 141563, 4283717, 65778393, 4822204, 7365336 ####[facility] [address] [place] [address] SEROLOGYOrdered By: Ariadne Sheehan on 09-30-2023 HCG.beta subunit (U) [Moles/Vol] Negative Normal [facility] Man Sero U BetaHcg Qualon 09-30-2023 HCG.beta subunit (U) [Moles/Vol] Negative Normal [facility] Comment on above: Performed By: #### 2 5604016 ####[facility] [address] [place] [address] UA with Cult Rflxon 09-30-19 24 Bacteria Auto Ql (U) Trace Normal Trace [facility] Comment on above: Performed By: #### 2 068672 #### [facility] [address] [place] [address] Bilirubin Ql (U) Negative Normal Negative [facility] Comment on above: Performed By: #### 2 924961 #### [facility] [address] [place] [address] Clarity (U) Clear Normal Clear [facility] Comment on above: Performed By: #### 2 156400 #### [facility] [address] [place] [address] Color (U) Light-Yellow Normal Yellow [facility] Comment on above: Result Comment: Micr oscopic readings are only performed on those samples that meet specific criteria set forth by [facility]. Performed By: #### 2 482985 #### [facility] [address] [place] [address] Epithelial cells.squamous Auto (Urine sed) [#/Area] 3-4 Abnormal 0-2 [facility] Comment on above: Performed By: #### 2 767603 #### [facility] [address] [place] [address] Glucose Ql (U) Negative Normal Negative [facility] Comment on above: Performed By: #### 2 364784 #### [facility] [address] [place] [address] Hemoglobin Auto test strip (U) [Mass/Vol] Trace Abnormal Negative [facility] Comment on above: Performed By: #### 2 993282 #### [facility] [address] [place] [address] Ketones Auto test strip Ql (U) Negative Normal Negative [facility] Comment on above: Performed By: #### 2 677664 #### [facility] [address] [place] [address] Leukocyte esterase Auto test strip Ql (U) 75 Bertrand/uL Abnormal Negative [facility] Comment on above: Performed By: #### 2 414761 #### [facility] [address] [place] [address] Mucus Auto Ql (U) Negative Normal Negative [facility] Comment on above: Performed By: #### 2 825309 #### [facility] [address] [place] [address] Nitrite Auto test strip Ql (U) Negative Normal Negative [facility] Comment on above: Performed By: #### 2 460377 #### [facility] [address] [place] [address] pH (U) 5.5 [pH] Invalid Interpretation Code 5.0-9.0 [facility] Comment on above: Performed By: #### 2 652660 #### [facility] [address] [place] [address] Protein Ql (U) Negative Normal Negative [facility] Comment on above: Performed By: #### 2 567063 #### [facility] [address] [place] [address] RBC Ql (U) 4-20 Abnormal 0-3 [facility] Comment on above: Performed By: #### 2 762985 #### [facility] [address] [place] [address] Specific gravity (U) [Rel density] 1.017 Invalid Interpretation Code 1.005-1.030 [facility] Comment on above: Performed By: #### 2 649347 #### [facility] [address] [place] [address] Urobilinogen (U) [Mass/Vol] Negative Normal Negative [facility] Comment on above: Performed By: #### 2 882088 #### [facility] [address] [place] [address] WBC Auto (Urine sed) [#/Area] 0-5 Normal 0-5 [facility] Comment on above: Performed By: #### 2 991348 #### [facility] [address] [place] [address] URINALYSISOrdered By: SYSTEM SYSTEM on 09-30-2023 Bacteria Auto Ql (U) Trace graded/HPF Normal Tra cegraded /HPF [facility] UA Auto SS Bilirubin Ql (U) Negative Normal Negativemg/ dL [facility] UA Auto SS Clarity (U) Clear (09/30/23 12:08 AM) Normal Clear [facility] UA Auto SS Color (U) Light-Yellow 1 (09/30/23 12:08 AM) Normal Yellow [facility] UA Auto SS Comment on above: Interpretive Data: M icroscopic readings are only performed on those samples that meet specific criteria set forth by [facility]. Epithelial cells.squamous Auto (Urine sed) [#/Area] [...] [facility] UA Auto SS URINALYSISOrdered By: Ritesh saucedoener on 09-30-2023 UA Spec Desc Clean Catch (09/30/23 12:08 AM) Normal [facility] UA Auto SS Work Phone: US Doppler [...] MD Transcribed by: MILLIE Technologist: GERDA Ordaz [facility] US Pelvis Non-OB Completeon 09-30-2023 US [...] Harvey Leslie MD Transcribed by: MILLIE Technologist: GEDRA Technical Comments Transabdominal Ultrasound Performed Transvaginal Ultrasound Performed Uterus Position Anteverted Normal [facility] US Transvaginal Non-OBon US Transvaginal Non-OB Exam Date/Time: 09/30/2023 02:03 EDT Reason for Exam: pssible torsion, known large cyst;Other (please specify) Report PLEASE SEE US Pelvis Non-OB Complete REPORT DATED: 09/30/2023. Ordering Provider: Ritesh Heath FINAL REPORT Dictated: 09/30/2023 4:11 am Harvey Leslie MD Signed (Electronic Signature): 09/30/2023 4:11 am Signed by: Harvey Leslie MD Transcribed by: MILLIE Technologist: GERDA Normal [facility] eGFRon 09-30-2023 eGFR 97 mL/min/1.73 m2 Normal >=59 [facility] Comment on above: Order Comment: Order added by Discern Expert. Performed By: #### 2 449134, 7829354, 26244054, 7978660, 6105629 ####[facility] [address] [place] [address] Consent for Treatmenton 09-11 Consent for Treatment [id number] 4040 [id number] 0TIFF Normal [facility] UA with Cult Rflxon 09-29-19 24 Type of Urine collection method Clean Catch [facility] Comment on above: Performed By: #### 2 599394 #### [facility] [address] [place] [address] ED Clinical Summaryon 2023 ED Clinical Summary [address] [address] ED Clinical Summary Person Information Name: ANTONIA NOYOLA [facility] Age: 38 Years : 1985 Sex: Female [...] 09/26/2023 18:13:56 09/26/2023 18:13:56 09/26/2023 18:13:56 ADDRESS: [address] [place] [address] [address] [place] [id number] PHYS DOC NOTES: MEDICAL INFORMATION: Prescriptions Given: New Medications [id number], [address], [place] [id number], [phone] diflunisal (diflunisal 500 mg Tab) 1 Tablets [...] INFORMATION: Instructions: Follow up: With: Address: When: [address] [address] Business (1) In 3 days 09/29/2023 With: Address: When: Tarun BRADEN [address] [place] [address] Business (1) In 3 days 09/29/2023 With: Address: When: XXXX [facility] , [place] In 3 days DIAGNOSIS: Abdominal pain; Constipation; Ovarian cyst Normal [facility] ED Patient Education Noteon 09-27-2023 ED Patient Education Note Normal [facility] ED Patient Summaryon 024 ED Patient Summary [address] [address] Patient Discharge Instructions Person Information Name: ANTONIA NOYOLA Age: 38 Years Arrival Date: 09/26/2023 13:54:18 Discharge Diagnosis: Abdominal pain; Constipation; Ovarian cyst Primary Care Physician: NONE, XXXX Provider Information Primary Provider: Konstantin Penny DO Advanced Clinical Informatics Manager:None The exam and treatment you received in the Emergency Department were for an urgent problem and are not intended as complete care. It is important that you follow up with a doctor, nurse practitioner, or physician?s optometric assistant for ongoing care. If your symptoms become worse or you do not improve as expected and you are unable to reach your usual health care provider, you should return to the Emergency Department. We are available 24 hours a day. ANTONIA NOYOLA has been given the following list of patient education materials, prescriptions and follow-up instructions: Follow-up Instructions: With: Address: When: [employer] [address] [place] [address] Business (1) In 3 days 09/29/2023 With: Address: When: Tarun CRISTOFER [facility], [address] [place] [address] [place] [address] Business (1) In 3 days 09/29/2023 With: Address: When: XXXX [facility] , [place] In 3 days In the event that this physician does not participate in your insurance network, please consult with your insurance company to find a nearby participating provider. Patient Education Materials: A MESSAGE TO ALL PATIENTS REGARDING OPIOIDS PRESCRIPTION OPIOIDS: WHAT YOU NEED TO KNOW Prescription opioids can be used to help relieve lynnkpgh-cf-fuwrzv pain and are often prescribed following a [...] and overdose. (more content not included)... Normal [facility] B hCG Qualon 09-26-2023 Beta HCG ( test) Ql Negative Normal [facility] Comment on above: Order Comment: FER dubois attempting lab work from IV start per Pt request. Phleb on standby if unable to get labs, [id number] 09/26/2023 14:42:36 EDT Performed By: #### 2 3107383, 37808417, 7641014, 0840089, 5009263 ####[facility] [address] [place] [address] CBC w/ Auto Diffon 4 Anisocytosis Ql (Bld) PRESENT Invalid Interpretation Code [facility] Comment on above: Performed By: #### 2 8899576, 05800948, 2037136, 4954729, 2721578 ####[address] [address] Basophils/100 WBC (Bld) 0.8 % Normal 0.0-2.0 [facility] Comment on above: Performed By: #### 2 0729701, 38154546, 2257140, 1601264, 5246077 ####[address] [address] Basophils/Leukocytes Auto (Bld) [Pure # fraction] 0.1 E9/L Normal 0.0-0.2 [facility] Comment on above: Performed By: #### 2 4606273, 01631736, 0969200, 8864070, 3260839 ####[address] [address] Eosinophils (Bld) [#/Vol] 0.0 E9/L Normal 0.0-0.5 [facility] Comment on above: Performed By: #### 2 7364619, 57489790, 7380218, 6682456, 5469483 ####[address] [address] Eosinophils/100 WBC (Bld) 0.0 % Normal 0.0-8.0 [facility] Comment on above: Performed By: #### 2 1510750, 58455330, 1563115, 8304846, 6608474 ####[address] [address] Hypochromia Auto Ql (Bld) PRESENT Invalid Interpretation Code [facility] Comment on above: Performed By: #### 2 9669728, 66611721, 0261412, 1790834, 2255840 ####[address] [address] Lymphocytes (Bld) [#/Vol] 1.6 E9/L Normal 1.0-4.0 [facility] Comment on above: Performed By: #### 2 9909888, 01968861, 5546045, 0903720, 7491808 ####[facility] [address] [place] [address] Lymphocytes/100 WBC (Bld) 22.7 % Normal 14.0-50.0 [facility] Comment on above: Performed By: #### 2 1774418, 05148193, 6867671, 9224405, 8312069 ####[address] [address] Microcytes Ql (Bld) PRESENT Invalid Interpretation Code [facility] Comment on above: Performed By: #### 2 1562455, 47216639, 1383470, 7729516, 2828987 ####[address] [address] Monocytes (Bld) [#/Vol] 0.3 E9/L Normal 0.2-1.0 [facility] Comment on above: Performed By: #### 2 3112468, 10314236, 0383719, 5864236, 7502602 ####[address] [address] Neutrophils (Bld) [#/Vol] 5.1 E9/L Normal 2.0-7.5 [facility] Comment on above: Performed By: #### 2 0320563, 32130650, 9952776, 6062558, 5056920 ####[address] [address] Neutrophils/100 WBC (Bld) 71.6 % Normal 36.0-75.0 [facility] Comment on above: Performed By: #### 2 2698590, 81058394, 8984571, 9915871, 8038831 ####[address] [address] Erythrocyte distribution width (RBC) [Ratio] 17.8 % High 10.9-14.2 [facility] Comment on above: Performed By: #### 2 4922957, 18398782, 4325197, 9047997, 4610550 ####[place] [address] Hematocrit (Bld) [Volume fraction] 36.2 % Normal 34.0-46.0 [facility] Comment on above: Performed By: #### 2 6553983, 03868807, 3912996, 5603460, 4762668 ####[place] [address] Hemoglobin (Bld) [Mass/Vol] 11.2 g/dL Low 12.0-16.0 [facility] Comment on above: Performed By: #### 2 8214401, 24639062, 9527771, 3488923, 1188102 ####[place] [address] MCH (RBC) [Entitic mass] 23.2 pg Low 27.0-34.0 [facility] Comment on above: Performed By: #### 2 1955148, 10663316, 3326416, 6940510, 9575097 ####[place] [address] MCHC (RBC) [Mass/Vol] 31.0 g/dL Low 31.4-36.0 [facility] Comment on above: Performed By: #### 2 4709659, 20079278, 7392393, 0631888, 5177652 ####[address] [address] MCV (RBC) [Entitic vol] 74.9 fL Low 80.0-100.0 F [facility] Comment on above: Performed By: #### 2 4901205, 12147589, 9377873, 1016633, 7782682 ####[address] [address] Platelet mean volume (Bld) [Entitic vol] 7.5 fL Normal 6.4-10.8 [facility] Comment on above: Performed By: #### 2 1961366, 75917754, 7590459, 2107815, 3913023 ####[address] [address] Platelets (Bld) [#/Vol] 461.0 E9/L Normal 150.0-500.0 [facility] Comment on above: Performed By: #### 2 7805235, 31823473, 0676742, 1909464, 8944774 ####[address] [address] RBC (Bld) [#/Vol] 4.8 E12/L Normal 4.3-5.9 [facility] Comment on above: Performed By: #### 2 4228717, 70684163, 1761536, 7449593, 6559521 ####[address] [address] WBC corrected for nucl RBC Auto (Bld) [#/Vol] 7.1 E9/L Normal 4.0-11.0 [facility] Comment on above: Performed By: #### 2 3102915, 88402358, 6552603, 5388902, 2100409 ####[address] [address] CHEMISTRYOrdered By: SYSTEM SYSTEM on 09-26-2023 Amphetamines [...] 09-26-2023 Albumin [Mass/Vol] 4.7 g/dL Normal 3.3-5.0 [facility] Comment on above: Performed By: #### 2 1199064, 91193593, 8096451, 5844954, 5623612 ####[facility] [address] [place] [address] Albumin/Globulin (S) [Mass conc ratio] 1.3 Normal 1.1-2.2 [facility] Comment on above: Performed By: #### 2 0483767, 24642695, 0889693, 1215228, 9405776 ####[facility] [address] [place] [address] ALP [Catalytic activity/Vol] 61 Int._Unit/L Normal 21-98 [facility] Comment on above: Performed By: #### 2 3991255, 55929406, 0235199, 8455589, 7898262 ####[facility] [address] [place] [address] ALT No additional P-5'-P [Catalytic activity/Vol] 11 Int._Unit/L Normal 6-46 [facility] Comment on above: Performed By: #### 2 6319254, 98435063, 6646090, 8016995, 2599145 ####[address] [place] [address] Anion gap [Moles/Vol] 15 mmol/L Normal 6-16 [facility] Comment on above: Performed By: #### 2 0008143, 94828290, 0984558, 3189301, 1194681 ####[address] [address] AST [Catalytic activity/Vol] 16 Int._Unit/L Normal 5-43 [facility] Comment on above: Performed By: #### 2 0368440, 82827988, 0678118, 9083501, 6764724 ####[facility] [address] [place] [address] Bilirubin [Mass/Vol] 0.8 mg/dL Normal 0.0-1.1 [facility] Comment on above: Performed By: #### 2 1151233, 76046770, 2072843, 3513606, 1659738 ####[address] [place] [address] Calcium [Mass/Vol] 9.7 mg/dL Normal 8.9-11.1 [facility] Comment on above: Performed By: #### 2 2103942, 63358522, 7989644, 9397516, 8798497 ####[address] [place] [address] Chloride [Moles/Vol] 107 mmol/L Normal 101-111 [facility] Comment on above: Performed By: #### 2 7776508, 36405516, 5733775, 3710171, 7272614 ####[address] [place] [address] CO2 [Moles/Vol] 20 mmol/L Low 21-31 [facility] Comment on above: Performed By: #### 2 1504455, 80854362, 4008970, 8067096, 5050093 ####[facility] [address] [place] [address] Creatinine [Mass/Vol] 0.7 mg/dL Normal 0.5-1.3 [facility] Comment on above: Performed By: #### 2 2736196, 80536677, 7372273, 3922670, 4605174 ####[facility] [address] [place] [address] Globulin (S) [Mass/Vol] 3.6 g/dL Normal 1.4-4.0 [facility] Comment on above: Performed By: #### 2 6868172, 25346027, 4401881, 7864178, 3548284 ####[facility] [address] [place] [address] Glucose [Mass/Vol] 120 mg/dL Normal 55-199 [facility] Comment on above: Performed By: #### 2 6776138, 27695233, 9833141, 3391115, 5215341 ####[facility] [address] [place] [address] Potassium [Moles/Vol] 3.8 mmol/L Normal 3.5-5.3 [facility] Comment on above: Performed By: #### 2 7668330, 24895246, 0168701, 6430322, 5323172 ####[facility] [address] [place] [address] Protein [Mass/Vol] 8.3 g/dL High 6.0-7.8 [facility] Comment on above: Performed By: #### 2 4156550, 85261101, 9893319, 9115704, 9622223 ####[facility] [address] [place] [address] Sodium [Moles/Vol] 138 mmol/L Normal 135-145 [facility] Comment on above: Performed By: #### 2 2780620, 61035062, 8279230, 9504331, 0138628 ####[facility] [address] [place] [address] Urea nitrogen [Mass/Vol] 5 mg/dL Normal 5-21 [facility] Comment on above: Performed By: #### 2 1801597, 62324113, 0957583, 3982446, 9048035 ####[facility] [address] [place] [address] Urea nitrogen/Creatinine [Mass ratio] 7 No Units Low 10-20 [facility] Comment on above: Performed By: #### 2 0076939, 01046631, 9444368, 1368887, 5779759 ####[facility] [address] [place] [address] CT Abdomen/Pelvis w/ Contras ton 09-26-2023 CT [...] 300 Contrast amount in ml's: 100 Normal [facility] Consent for Treatmenton 09-11 Consent for Treatment [id number] 4040 [id number] 0TIFF Normal [facility] Discharge Instructionson Discharge Instructions [id number] 0TIFF Normal [facility] ED Note-Physicianon 09-26-19 24 ED Note-Physician Basic Information Time Seen: Konstantin Penny DO 09/26/2023 14:25 Chief Complaint c/o nausea and left abdominal pain radiating to back that started back up yesterday. took bentyl ibuprofen and tramadol around noon with no relief. recent admission to [facility] ago for intusseption, ovarian cyst, elevated lactic. denies V/D History of Present Illness 38 year old female presents to the emergency department with chief complaint of abdominal pain. patient states this pain started yesterday and has associated nausea without vomiting. Patient states she was admitted 10 days ago to [facility] for intussusception, ovarian cysts, and elevated lactic. She states she was admitted for one day and that she had another CT done that showed resolution of the intussusception. She reports she was discharged home but went back to [place] ED yesterday for similar pain. She reports [...] and noted. We did review workup from [facility] just recently. Risks and benefits of [...] differential diagnosis. We did refer her to [facility] ASSISTANT for follow-up. Patient also was found to have some constipation on CT therefore we talked about dietary and lifestyle modifications and I did prescribe MiraLAX here as well. She is to follow-up in the outpatient setting return to ER symptoms should change or worsen she is comfortable with this plan. I, Dr. Penny had a lzmq-oh-frsm interaction with the patient. I personally performed [...] q12hr, # 20 tab(s), Refills(s) 0, Pharmacy: [facility]/pharmacy #[id number], 165, cm, 09/26/23 14:18:00 EDT, Height/Length Dosing, 81.2, kg, 09/26/23 14:18:00 EDT, Weight Dosing hyoscyamine, 0.125 mg = 1 tab(s), Oral, QID, X 5 day(s), # 20 tab(s), Refills(s) 0, Pharmacy: [facility]/pharmacy #[id number], 165, cm, 09/26/23 14:18:00 EDT, Height/Length Dosing, 81.2, kg, 09/26/23 14:18:00 EDT, Weight Dosing ketorolac, 30 mg = 1 mL, Injection, IV, Once, Stop date 09/26/23 15:40:00 EDT, STAT, Start date 09/26/23 15:40:00 EDT, 09/26/23 15:40:00 EDT polyethylene glycol 3350, 17 gm, Oral, Daily, X 7 day(s), # 119 gm, Refills(s) 0, Pharmacy: [facility]/pharmacy #[id number], 165, cm, 09/26/23 14:18:00 EDT, (more content not included)... Normal [facility] Comment on above: Result Comment: Elec tronically [...] Lipase [Catalytic activity/Vol] 18 U/L Normal 13-58 [facility] Comment on above: Performed By: #### 2 [id number], [id number], [id number], 7502403, [id number] ####[facility] [address] [place] [address] Outside Recordson 09-26-2023 Outside Records [id number]. 00TIFF Normal [facility] SEROLOGYOrdered By: Nohemi Taylor on 09-26-2023 Beta HCG ( test) Ql Negative (09/26/23 2:45 PM) Normal [facility] Man Sero U Drug Screenon 09-26-2023 Amphetamines Screen method >1000 ng/mL Ql (U) Negative Normal NEGATIVE [facility] Comment on above: Result Comment: Nega tive Cutoff: <1000 ng/mL Performed By: #### 2 [id number] #### [facility] [address] [place] [address] Barbiturates Screen Ql (U) Negative Normal NEGATIVE [facility] Comment on above: Result Comment: Nega tive Cutoff: <200 ng/mL Performed By: #### 2 [id number] #### [facility] [address] [place] [address] Benzodiazepines Ql (U) Negative Normal NEGATIVE [facility] Comment on above: Result Comment: Nega tive Cutoff: <200 ng/mL Performed By: #### 2 [id number] #### [facility] [address] [place] [address] Cannabinoids Screen Ql (U) Negative Normal NEGATIVE [facility] Comment on above: Result Comment: Nega tive Cutoff: <50 ng/mL Performed By: #### 2 [id number] #### [facility] [address] [place] [address] Cocaine Ql (U) Negative Normal NEGATIVE [facility] Comment on above: Result Comment: Nega tive Cutoff: <300 ng/mL Performed By: #### 2 [id number] #### [facility] [address] [place] [address] Opiates Screen Ql (U) Negative Normal NEGATIVE [facility] Comment on above: Result Comment: Nega tive Cutoff: <300 ng/mL Performed By: #### 2 [id number] #### [facility] [address] [place] [address] Phencyclidine Screen method >25 ng/mL Ql (U) Negative Normal NEGATIVE [facility] Comment on above: Result Comment: Nega tive Cutoff: <25 ng/mL These drug screen results are to be used for medical (i.e., treatment) purposes only. Unconfirmed drug screening results must not be used for non-medical purposes (e.g., employment testing, legal testing). Performed By: #### 2 [id number] #### [facility] [address] [place] [address] U Fentanyl Negative Normal NEGATIVE [facility] Comment on above: Result Comment: Nega tive Cutoff: <5 ng/mL These drug screen results are to be used for medical (i.e., treatment) purposes only. Unconfirmed drug screening results must not be used for non-medical purposes (e.g., employment testing, legal testing). Performed By: #### 2 [id number] #### [facility] [address] [place] [address] UA with Cult Rflxon 09-26-19 24 Bilirubin Ql (U) Negative Normal Negative [facility] Comment on above: Performed By: #### 4 [id number] #### [facility] [address] [place] [address] Clarity (U) Clear Normal Clear [facility] Comment on above: Performed By: #### 4 [id number] #### [facility] [address] [place] [address] Color (U) Colorless Abnormal Yellow [facility] Comment on above: Result Comment: Micr oscopic readings are only performed on those samples that meet specific criteria set forth by [facility]. Performed By: #### 4 [id number] #### [facility] [address] [place] [address] Glucose Ql (U) Negative Normal Negative [facility] Comment on above: Performed By: #### 4 [id number] #### [facility] [address] [place] [address] Hemoglobin Auto test strip (U) [Mass/Vol] Negative Normal Negative [facility] Comment on above: Performed By: #### 4 [id number] #### [facility] [address] [place] [address] Ketones Auto test strip Ql (U) Negative Normal Negative [facility] Comment on above: Performed By: #### 4 [id number] #### [facility] [address] [place] [address] Leukocyte esterase Auto test strip Ql (U) Negative Normal Negative [facility] Comment on above: Performed By: #### 4 [id number] #### [facility] [address] [place] [address] Nitrite Auto test strip Ql (U) Negative Normal Negative [facility] Comment on above: Performed By: #### 4 [id number] #### [facility] [address] [place] [address] pH (U) 6.0 [pH] Invalid Interpretation Code 5.0-9.0 [facility] Comment on above: Performed By: #### 4 [id number] #### [facility] [address] [place] [address] Protein Ql (U) Negative Normal Negative [facility] Comment on above: Performed By: #### 4 [id number] #### [facility] [address] [place] [address] Specific gravity (U) [Rel density] 1.004 Invalid Interpretation Code 1.005-1.030 [facility] Comment on above: Performed By: #### 4 [id number] #### [facility] [address] [place] [address] Urobilinogen (U) [Mass/Vol] Negative Normal Negative [facility] Comment on above: Performed By: #### 4 [id number] #### [facility] [address] [place] [address] Type of Urine collection method Clean Catch Normal [facility] Comment on above: Performed By: #### 4 [id number] #### [facility] [address] [place] [address] URINALYSISOrdered By: SYSTEM SYSTEM on 09-26-2023 Bilirubin Ql (U) Negative Normal Negativemg/ dL [facility] UA Auto SS Clarity (U) Clear (09/26/23 2:49 PM) Normal Clear [facility] UA Auto SS Color (U) Colorless 3 *ABN* (09/26/23 2:49 PM) Invalid Interpretation Code Yellow [facility] UA Auto SS Comment on above: Interpretive Data: M icroscopic readings are only performed on those samples that meet specific criteria set forth by [facility]. Glucose Ql (U) Negative Normal Negativemg/ [...] Protein Ql (U) Negative Normal Negativemg/ dL [facility] UA Auto SS Specific gravity (U) [Rel density] 1.004 *NA* (09/26/23 2:49 PM) Invalid Interpretation Code 1.005 - 1.030 [facility] Auto SS Urobilinogen (U) [Mass/Vol] Negative Normal Negativemg/ dL [facility] UA Auto SS URINALYSISOrdered By: Konstantin dillard on 09-26-2023 UA Spec Desc Clean Catch (09/26/23 2:49 PM) Normal [facility] UA Auto SS Work Phone: US Pelvis [...] Transvaginal Ultrasound Performed Uterus Position Anteverted Normal [facility] US Transvaginal Non-OBon US Transvaginal Non-OB Exam Date/Time: 09/26/2023 17:41 EDT Reason for Exam: Pelvic pain Report Please see ultrasound pelvis non-OB complete report Ordering Provider: Konstantin Penny FINAL REPORT Dictated: 09/26/2023 5:53 pm Chad Mo DO Signed (Electronic Signature): 09/26/2023 5:53 pm Signed by: Chad Mo DO Transcribed by: MILLIE Technologist: HAILEY Normal [facility] eGFRon 09-26-2023 eGFR 114 mL/min/1.73 m2 Normal >=59 [facility] Comment on above: Order Comment: Order added by Discern Expert. Performed By: #### 2 [id number], [id number], [id number], [id number], 4046045 ####[facility] [address] [place] [address] CBC With Platelet and Differ entialon 09-06-2023 Basophils (Bld) [#/Vol] 0.1 10*3/uL Normal 0.0-0.2 [facility] Comment on above: Performed By: #### C BCWD #### [facility] [address] [place] [address] Basophils/100 WBC (Bld) 0.6 % Normal [facility] Comment on above: Performed By: #### C BCWD #### [facility] [address] [place] [address] Eosinophils (Bld) [#/Vol] 0.1 10*3/uL Normal 0.0-0.7 [facility] Comment on above: Performed By: #### C BCWD #### [facility] [address] [place] [address] Eosinophils/100 WBC (Bld) 0.6 % Normal [facility] Comment on above: Performed By: #### C BCWD #### [facility] [address] [place] [address] Erythrocyte distribution width (RBC) [Ratio] 15.9 % Critically high 11.5-14.5 [facility] Comment on above: Performed By: #### C BCWD #### [facility] [address] [place] [address] Hematocrit (Bld) [Volume fraction] 34.5 % Low 37.0-47.0 [facility] Comment on above: Performed By: #### C BCWD #### [facility] [address] [place] [address] Hemoglobin (Bld) [Mass/Vol] 10.1 g/dL Low 12.0-16.0 [facility] Comment on above: Performed By: #### C BCWD #### [facility] [address] [place] [address] Lymphocytes (Bld) [#/Vol] 4.4 10*3/uL Normal 1.0-4.8 [facility] Comment on above: Performed By: #### C BCWD #### [facility] [address] [place] [address] Lymphocytes/100 WBC (Bld) 54.2 % Normal [facility] Comment on above: Performed By: #### C BCWD #### [facility] [address] [place] [address] MCH (RBC) [Entitic mass] 22.9 pg Low 27.0-31.3 [facility] Comment on above: Performed By: #### C BCWD #### [facility] [address] [place] [address] MCHC 29.3 % Low 33.0-37.0 [facility] Comment on above: Performed By: #### C BCWD #### [facility] [address] [place] [address] MCV (RBC) [Entitic vol] 78.2 fL Low 79.4-94.8 [facility] Comment on above: Performed By: #### C BCWD #### [facility] [address] [place] [address] Monocytes (Bld) [#/Vol] 0.5 10*3/uL Normal 0.2-0.8 [facility] Comment on above: Performed By: #### C BCWD #### [facility] [address] [place] [address] Monocytes/100 WBC (Bld) 6.5 % Normal [facility] Comment on above: Performed By: #### C BCWD #### [facility] [address] [place] [address] Neutrophils (Bld) [#/Vol] 3.1 10*3/uL Normal 1.4-6.5 [facility] Comment on above: Performed By: #### C BCWD #### [facility] [address] [place] [address] Neutrophils/100 WBC (Bld) 37.9 % Normal [facility] Comment on above: Performed By: #### C BCWD #### [facility] [address] [place] [address] Platelets (Bld) [#/Vol] 482 10*3/uL Critically high 130-40 0 [facility] Comment on above: Performed By: #### C BCWD #### [facility] [address] [place] [address] RBC (Bld) [#/Vol] 4.41 10*6/uL Normal 4.20-5.40 [facility] Comment on above: Performed By: #### C BCWD #### [facility] [address] [place] [address] WBC (Bld) [#/Vol] 8.1 10*3/uL Normal 4.8-10.8 [facility] Comment on above: Performed By: #### C BCWD #### [facility] [address] [place] [address] Comprehensive Metabolic Pane van 09-06-2023 Albumin [Mass/Vol] 4.4 g/dL Normal 3.5-4.6 [facility] Comment on above: Performed By: #### C MP #### [facility] [address] [place] [address] ALP [Catalytic activity/Vol] 72 U/L Normal 40-130 [facility] Comment on above: Performed By: #### C MP #### [facility] [address] [place] [address] ALT [Catalytic activity/Vol] 15 U/L Normal 0-33 [facility] Comment on above: Performed By: #### C MP #### [facility] [address] [place] [address] Anion gap [Moles/Vol] 11 mmol/L Normal 9-15 [facility] Comment on above: Performed By: #### C MP #### [facility] [address] [place] [address] AST [Catalytic activity/Vol] 18 U/L Normal 0-35 [facility] Comment on above: Performed By: #### C MP #### [facility] [address] [place] [address] Bilirubin [Mass/Vol] 0.4 mg/dL Normal 0.2-0.7 [facility] Comment on above: Performed By: #### C MP #### [facility] [address] [place] [address] Calcium [Mass/Vol] 9.5 mg/dL Normal 8.5-9.9 [facility] Comment on above: Performed By: #### C MP #### [facility] [address] [place] [address] Chloride [Moles/Vol] 102 mmol/L Normal 95-107 [facility] Comment on above: Performed By: #### C MP #### [facility] [address] [place] [address] CO2 [Moles/Vol] 24 mmol/L Normal 20-31 [facility] Comment on above: Performed By: #### C MP #### [facility] [address] [place] [address] Creatinine [Mass/Vol] 0.59 mg/dL Normal 0.50-0.90 [facility] Comment on above: Performed By: #### C MP #### [facility] [address] [place] [address] GFR >90.0 Normal >60 [facility] Comment on above: Result Comment: Pedi atric [...] secretion. Performed By: #### C MP #### [facility] [address] [place] [address] Globulin (S) [Mass/Vol] 3.5 g/dL Normal 2.3-3.5 M [facility] Comment on above: Performed By: #### C MP #### [facility] [address] [place] [address] Glucose [Mass/Vol] 98 mg/dL Normal 70-99 [facility] Comment on above: Performed By: #### C MP #### [facility] [address] [place] [address] Potassium [Moles/Vol] 3.2 mmol/L Low 3.4-4.9 [facility] Comment on above: Performed By: #### C MP #### [facility] [address] [place] [address] Protein [Mass/Vol] 7.9 g/dL Normal 6.3-8.0 [facility] Comment on above: Performed By: #### C MP #### [facility] [address] [place] [address] Sodium [Moles/Vol] 137 mmol/L Normal 135-144 [facility] Comment on above: Performed By: #### C MP #### [facility] [address] [place] [address] Urea nitrogen [Mass/Vol] 4 mg/dL Low 6-20 [facility] Comment on above: Performed By: #### C MP #### [facility] [address] [place] [address] US NON OB TRANSVAGINALon US NON OB [...] Jessy Campos MD 09/06/23 Final result Normal [facility] US PELVIS COMPLETEon 09-05- 024 US PELVIS [...] Jessy Campos MD 09/06/23 Final result Normal [facility] Urinalysis, reflex to cultur silvino 09-06-2023 Urine Reflexed to Culture Not Indicated Normal [facility] Comment on above: Performed By: #### U AR #### [facility] [address] [place] [address] Bilirubin Ql (U) Negative Normal Negative [facility] Comment on above: Performed By: #### U AR #### [facility] [address] [place] [address] Clarity (U) Clear Normal Clear [facility] Comment on above: Performed By: #### U AR #### [facility] [address] [place] [address] Color (U) Yellow Normal Straw/[place] [facility] Comment on above: Performed By: #### U AR #### [facility] [address] [place] [address] Glucose Ql (U) >=1000 Abnormal Negative [facility] Comment on above: Performed By: #### U AR #### [facility] [address] [place] [address] Hemoglobin Ql (U) TRACE Abnormal Negative [facility] Comment on above: Performed By: #### U AR #### [facility] [address] [place] [address] Ketones Ql (U) >=80 Abnormal Negative [facility] Comment on above: Performed By: #### U AR #### [facility] [address] [place] [address] Leukocyte esterase Test strip Ql (U) Negative Normal Negative [facility] Comment on above: Performed By: #### U AR #### [facility] [address] [place] [address] Nitrite Ql (U) Negative Normal Negative [facility] Comment on above: Performed By: #### U AR #### [facility] [address] [place] [address] pH (U) 5.0 [pH] Normal 5.0-9.0 [facility] Comment on above: Performed By: #### U AR #### [facility] [address] [place] [address] Protein Ql (U) TRACE Abnormal Negative [facility] Comment on above: Performed By: #### U AR #### [facility] [address] [place] [address] Specific gravity (U) [Rel density] 1.025 Normal 1.005-1.03 [facility] Comment on above: Performed By: #### U AR #### [facility] [address] [place] [address] Urobilinogen Qn (U) 0.2 {Ivone'U}/dL Normal < 2.0 [facility] Comment on above: Performed By: #### U AR #### [facility] [address] [place] [address] Urine Microscopicon 09-06-19 24 Bacteria LM.HPF (Urine sed) [#/Area] Negative Normal Negative [facility] Comment on above: Performed By: #### U ARELIS #### [facility] [address] [place] [address] Urine Epithelial Cells Auto 0-2 Normal 0-5 [facility] Comment on above: Performed By: #### U ARELIS #### [facility] [address] [place] [address] Urine Hyaline Casts Auto 0-1 Normal 0-5 [facility] Comment on above: Performed By: #### U ARELIS #### [facility] [address] [place] [address] Urine RBC Auto 3-5 Abnormal 0-5 [facility] Comment on above: Performed By: #### U ARELIS #### [facility] [address] [place] [address] Urine WBC Auto 0-2 Normal 0-5 [facility] Comment on above: Performed By: #### U [facility] #### [facility] [address] [place] [address] ED Note-Physicianon 08-01-19 ED Note-Physician Basic Information [...] endometritis for which she follows with a [employer] at the [facility]. 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 Short course of pain medication as prescribed after an OARRS review for this patient. Return precautions were discussed. All questions were answered. The patient was discharged home for outpatient follow-up for her acute on chronic pain. Assessment/Plan Abdominal pain, acute (R10.9: Unspecified abdominal pain) Ordered: acetaminophen-oxycodon e, 1 tab(s), Oral, q6hr Pain 8-10 for 3 day(s), 12 tab(s), Refill(s) 0, [facility]/pharmacy #[id number], 165.1, cm, 07/31/23 15:42:00 EST, Height/Length Dosing, [...] Discharge D (more content not included)... Normal [facility] Comment on above: Result Comment: Elec tronically Signed By: Jignesh Dumont DO.br\Date and Time Signed: 08/01/23 09:21 EST B hCG Qualon 07-31-2023 Beta HCG ( test) Ql Negative Normal [facility] Comment on above: Performed By: #### 2 716781, 9031965, 03708521, [id number], [id number] ####[facility] [address] [place] [address] BMPon 07-31-2023 Anion gap [Moles/Vol] 15 mmol/L Normal 6-16 [facility] Comment on above: Performed By: #### 2 754686, 6118848, 48913760, [id number], 4062078 ####[facility] [address] [place] [address] BUN/Creat Ratio 4 No Units Low 10-20 [facility] Comment on above: Performed By: #### 2 037633, 2636780, 83329570, [id number], 5545327 ####[facility] [address] [place] [address] Calcium [Mass/Vol] 9.6 mg/dL Normal 8.9-11.1 [facility] Comment on above: Performed By: #### 2 833489, 9653823, 00655090, 83370609, 4766505 ####[facility] [address] [place] [place] [address] Chloride [Moles/Vol] 106 mmol/L Normal 101-111 [facility] Comment on above: Performed By: #### 2 312998, 5062222, 24561315, 41650369, 9380264 ####[facility] [address] [place] [address] CO2 [Moles/Vol] 21 mmol/L Normal 21-31 [facility] Comment on above: Performed By: #### 2 195583, 4689254, 80656879, 25590778, 2447011 ####[facility] [address] [place] [address] Creatinine [Mass/Vol] 0.9 mg/dL Normal 0.5-1.3 [facility] Comment on above: Performed By: #### 2 378795, 4346054, 32785498, 20558487, 2019670 ####[facility] [address] [place] [address] Glucose [Mass/Vol] 109 mg/dL Normal 55-199 [facility] Comment on above: Performed By: #### 2 691295, 5794428, 75671721, 60537341, 7661876 ####[facility] [address] [place] [address] Potassium [Moles/Vol] 3.6 mmol/L Normal 3.5-5.3 [facility] Comment on above: Performed By: #### 2 626762, 9909743, 71763492, 15703685, 2203844 ####[facility] [address] [place] [address] Sodium [Moles/Vol] 138 mmol/L Normal 135-145 [facility] Comment on above: Performed By: #### 2 047456, 4902815, 03684054, 72068455, 4412940 ####[address] [place] [address] Urea nitrogen [Mass/Vol] mg/dL Low 5-21 [facility] Comment on above: Performed By: #### 2 573973, 4631487, 11176087, 74041431, 5926201 ####[address] [place] [address] CBC w/ Auto Diffon 4 Anisocytosis Ql (Bld) PRESENT Invalid Interpretation Code [facility] Comment on above: Performed By: #### 2 077095, 9443163, 97987601, 78174436, 1971856 ####[address] [address] Microcyte PRESENT Invalid Interpretation Code [facility] Comment on above: Performed By: #### 2 753124, 8244848, 31911047, 75392330, 8355098 ####[address] [place] [address] RBC morphology finding Nom (Bld) SEE MORPHOLOGY Invalid Interpretation Code [facility] Comment on above: Performed By: #### 2 802074, 2622856, 02899881, 14591455, 2509806 ####[address] [place] [address] Basophil Absolute 0.1 E9/L Normal 0.0-0.2 [facility] Comment on above: Performed By: #### 2 197414, 0448825, 47863413, 04085300, 5297141 ####[address] [address] Basophils/100 WBC (Bld) 1.1 % Normal 0.0-2.0 [facility] Comment on above: Performed By: #### 2 220724, 9435663, 48826673, 53818522, 2041342 ####[address] [address] Eos Absolute 0.0 E9/L Normal 0.0-0.5 [facility] Comment on above: Performed By: #### 2 730160, 5140456, 74444873, 48393302, 7371992 ####[address] [address] Eosinophils/100 WBC (Bld) 0.2 % Normal 0.0-8.0 [facility] Comment on above: Performed By: #### 2 749840, 6862881, 83458793, 17813643, 6092114 ####[address] [address] Erythrocyte distribution width (RBC) [Ratio] 16.5 % High 10.9-14.2 [facility] Comment on above: Performed By: #### 2 276319, 7096310, 52634486, 09283301, 9292327 ####[address] [address] Hematocrit (Bld) [Volume fraction] 36.0 % Normal 34.0-46.0 [facility] Comment on above: Performed By: #### 2 879154, 4297073, 56654571, 73054970, 3680543 ####[address] [address] Hemoglobin (Bld) [Mass/Vol] 11.4 g/dL Low 12.0-16.0 [facility] Comment on above: Performed By: #### 2 902546, 4737358, 05025674, 05898984, 6353479 ####[facility] [address] [place] [address] Lymph Absolute 2.2 E9/L Normal 1.0-4.0 [facility] Comment on above: Performed By: #### 2 160968, 1513039, 86133035, 13400278, 5938806 ####[facility] [address] [place] [address] Lymphocytes/100 WBC (Bld) 25.3 % Normal 14.0-50.0 [facility] Comment on above: Performed By: #### 2 800820, 2268135, 66971991, 70800562, 5895098 ####[facility] [address] [place] [address] MCH (RBC) [Entitic mass] 24.0 pg Low 27.0-34.0 [facility] Comment on above: Performed By: #### 2 024161, 3542935, 63649735, 78421239, 9927918 ####[facility] [address] [place] [address] MCHC (RBC) [Mass/Vol] 31.9 g/dL Normal 31.4-36.0 [facility] Comment on above: Performed By: #### 2 095037, 2736770, 52246178, 50076701, 3356032 ####[facility] [address] [place] [address] MCV (RBC) [Entitic vol] 75.2 fL Low 80.0-100.0 [facility] Comment on above: Performed By: #### 2 381846, 1970521, 70276977, 41358717, 6992419 ####[facility] [address] [place] [address] Candler Absolute 0.5 E9/L Normal 0.2-1.0 [facility] Comment on above: Performed By: #### 2 273905, 5373540, 30789053, 12280745, 4553308 ####[facility] [address] [place] [address] Monocytes/100 WBC (Bld) 5.4 % Normal 4.0-14.0 [facility] Comment on above: Performed By: #### 2 684090, 1493943, 88460797, 72684684, 0080108 ####[facility] [address] [place] [address] Neutro Absolute 5.9 E9/L Normal 2.0-7.5 [facility] Comment on above: Performed By: #### 2 972855, 5267035, 04968824, 13248892, 4946744 ####[address] [address] Neutro Auto 68.0 % Normal 36.0-75.0 [facility] Comment on above: Performed By: #### 2 581197, 4121225, 86912737, 94918153, 0798422 ####[address] [address] Platelet 612.0 E9/L High 150.0-500.0 [facility] Comment on above: Performed By: #### 2 384470, 3696356, 98009958, 93780544, 8268695 ####[address] [address] Platelet mean volume (Bld) [Entitic vol] 7.4 fL Normal 6.4-10.8 [facility] Comment on above: Performed By: #### 2 975692, 0516145, 46338474, 48192820, 9228255 ####[place] [address] [place] [address] RBC 4.7 E12/L Normal 4.3-5.9 [facility] Comment on above: Performed By: #### 2 024589, 5548250, 32124723, 69117868, 9369809 ####[facility] [address] [place] [address] WBC 8.6 E9/L Normal 4.0-11.0 [facility] Comment on above: Performed By: #### 2 834366, 8141213, 60114515, 88486746, 9848636 ####[facility] [address] [place] [address] CHEMISTRYOrdered By: SYSTEM SYSTEM on 07-31-2023 Albumin [...] Oral contrast amount in ml's: 0 Normal [facility] Discharge Instructionson Discharge Instructions [id number]#[id number] 0TIFF Normal [facility] ED Clinical Summaryon 2023 ED Clinical Summary [place] [id number] ED Clinical Summary Person Information Name: ANTONIA [...] 07/31/2023 18:03:59 ADDRESS: [address] [place] [id number] PHYS DOC NOTES: MEDICAL INFORMATION: Prescriptions Given: New Medications [id number], [address] [place] [phone], [phone] acetaminophen-oxycodon e (Percocet 5 mg-325 mg oral [...] up: With: Address: When: Follow-up with your [employer] at [facility] In 3 days 08/03/2023 Comments: Call [...] worsening symptoms. DIAGNOSIS: Abdominal pain, acute Normal [facility] ED Patient Education Noteon 07-31-2023 ED Patient [...] these instructions at home: Medicines ? Take aysv-fpl-xlnzzmz and prescription medicines only as told by [...] your condition for any changes. ? Take tvdx-sfv-xqogwnm and prescription medicines only as told by [...] Reviewed: 10/08/2019 Elsevier Patient Education ? 2022 OpenWhere. Normal [facility] ED Patient Summaryon 024 ED Patient Summary [address] [address] Patient Discharge Instructions Person Information Name: ANTONIA NOYOLA Age: 38 Years Arrival Date: 07/31/2023 15:33:06 Discharge Diagnosis: Abdominal pain, acute Primary Care Physician: NONE, XXXX Provider Information Primary Provider: Jignesh Dumont DO Advanced Clinical Informatics Manager:Shazia The exam and treatment you received in the Emergency Department were for an urgent problem and are not intended as complete care. It is important that you follow up with a doctor, nurse practitioner, or physician?s optometric assistant for ongoing care. If your symptoms [...] Instructions: With: Address: When: Follow-up with your [employer]PER[employer]ATION at [facility] In 3 days 08/03/2023 Comments: Call [...] opioids can be used to help relieve eftoujnt-kh-zcwjiw pain and are often prescribed following a [...] any and al (more content not included)... [facility] HEMATOLOGYOrdered By: Sloane Mazariegos [...] Low 80.0 - 100.0 fL Remisol Heme [place] Absolute 0.5 E9/L Normal 0.2 - 1.0 [...] 07-31-2023 Albumin [Mass/Vol] 4.6 g/dL Normal 3.3-5.0 [facility] Comment on above: Performed By: #### 2 708974, 7034598, 17195190, 80070207, 9840951 ####[facility] [address] [place] [address] Albumin/Globulin [Mass ratio] 1.4 {ratio} Normal 1.1-2.2 [facility] Comment on above: Performed By: #### 2 335587, 7017190, 24097426, 23547571, 2577276 ####[facility] [address] [place] [address] Alk Phos 73 Int._Unit/L Normal 21-98 [facility] Comment on above: Performed By: #### 2 438270, 2300775, 83721688, 63628487, 4633950 ####[facility] [address] [place] [address] ALT 10 Int._Unit/L Normal 6-46 [facility] Comment on above: Performed By: #### 2 398027, 2846190, 35955018, 03813194, 1428037 ####[facility] [address] [place] [address] AST 11 Int._Unit/L Normal 5-43 [facility] Comment on above: Performed By: #### 2 252496, 8149651, 33600699, 88100429, 0877812 ####[facility] [address] [place] [address] Bili Direct 0.1 mg/dL Normal 0.0-0.4 [facility] Comment on above: Performed By: #### 2 152603, 7595134, 57504497, 03696510, 1149331 ####[facility] [address] [place] [address] Bili Indirect 0.4 mg/dL Normal 0.1-0.9 [facility] Comment on above: Performed By: #### 2 973394, 1769738, 65372252, 37830404, 7037816 ####[facility] [address] [place] [address] Bili Total 0.5 mg/dL Normal 0.0-1.1 [facility] Comment on above: Performed By: #### 2 747615, 2185677, 07996165, 99196841, 0900881 ####[facility] [address] [place] [address] Globulin (S) [Mass/Vol] 3.3 g/dL Normal 1.4-4.0 [facility] Comment on above: Performed By: #### 2 863415, 3460468, 42921323, 87031619, 3272878 ####[facility] [address] [place] [address] Protein [Mass/Vol] 7.9 g/dL High 6.0-7.8 [facility] Comment on above: Performed By: #### 2 974570, 8512983, 25626602, 76804788, 7167931 ####[facility] [address] [place] [address] Monitor Recordon 07-31-2023 Monitor Record [id number] 20 [id number]#1. 00TIFF Normal [facility] SEROLOGYOrdered By: Felicity patel on 07-31-2023 Beta HCG ( test) Ql Negative (07/31/23 4:20 PM) Normal [facility] Man Sero UA With Cult Reflexon 2023 Bacteria LM Ql (Urine sed) TRACE Normal Trace [facility] Comment on above: Performed By: #### 1 1356358 ####[facility] [address] [place] [address] Bilirubin Ql (U) Negative Normal Negative [facility] Comment on above: Performed By: #### 1 5363695 ####[facility] [address] [place] [address], [place] [address] Clarity (U) CLEAR Normal Clear [facility] Comment on above: Performed By: #### 1 8133132 ####[facility] [address] [place] [address], [place] [address] Color (U) YELLOW Normal Yellow [facility] Comment on above: Performed By: #### 1 0112531 ####[facility] [address] [place] [address], [place] [address] Epithelial cells.squamous LM.HPF (Urine sed) [#/Area] 0-2 Normal 0-2 [facility] Comment on above: Performed By: #### 1 4932307 ####[facility] [address] [place] [address], [place] [address] Glucose Test strip (U) [Mass/Vol] Negative Normal Negative [facility] Comment on above: Performed By: #### 1 1220483 ####[facility] [address] [place] [address] Hemoglobin Ql (U) Negative Normal Negative [facility] Comment on above: Performed By: #### 1 4441695 ####[facility] [address] [place] [address] Ketones (U) [Mass/Vol] 1+ Abnormal Negative Fi [facility] Comment on above: Performed By: #### 1 1367733 ####[facility] [address] [place] [address] [place].plasma/[place]. RBC (Bld) [Mass ratio] 0-3 Normal 0-3 [facility] Comment on above: Performed By: #### 1 0342072 ####[facility] [address] [place] [address] Mucus Ql (Urine sed) TRACE Normal [facility] Comment on above: Performed By: #### 1 4107928 ####[facility] [address] [address] Nitrite Ql (U) Negative Normal Negative [facility] Comment on above: Performed By: #### 1 2615377 ####[address] [address] pH (U) 8.5 [pH] Invalid Interpretation Code 5.0-9.0 [facility] Comment on above: Performed By: #### 1 5030391 ####[address] [address] Protein (U) [Mass/Vol] Negative Normal Negative [facility] Comment on above: Performed By: #### 1 0419849 ####[address] [address] Specific gravity (U) [Rel density] 1.015 Invalid Interpretation Code 1.005-1.030 [facility] Comment on above: Performed By: #### 1 7091968 ####[address] [address] Type of Urine collection method Clean Catch Normal [facility] Comment on above: Performed By: #### 1 5329415 ####[address] [address] Urobilinogen Qn (U) 0.2 {Ivone'U}/dL Normal 0.0-1.0 [facility] Comment on above: Performed By: #### 1 8851900 ####[address] [address] WBC Auto Ql (U) Negative Normal Negative [facility] Comment on above: Performed By: #### 1 2510660 ####[address] [address] WBC LM.HPF (Urine sed) [#/Area] 0-5 Normal 0-5 [facility] Comment on above: Performed By: #### 1 8988242 ####[address] [address] URINALYSISOrdered By: Felicity George on 07-31-2023 Bacteria [...] Interpretation Code Negative [facility] UA Auto SS [place].plasma/[place]. RBC (Bld) [Mass ratio] 0-3 /HPF Normal [...] [facility] UA Auto SS Urobilinogen Qn (U) 0.3435840 {Ivone'U}/dL Normal 0.0 - 1.0 EU/dL [facility] UA Auto SS WBC Auto Ql (U) Negative (07/31/23 4:30 PM) Normal Negative [facility] UA Auto SS WBC LM.HPF (Urine sed) [#/Area] 0-5 /HPF Normal 0-5/HPF [facility] UA Auto SS eGFRon 07-31-2023 eGFR 85 mL/min/1.73 m2 Normal >=59 [facility] Comment on above: Order Comment: Order added by Discern Expert. Performed By: #### 2 062527, 7233282, 45092822, 16735026, 5647034 ####[facility] [address] [place] [address] ED NOTEon 06-23-2023 ED NOTE HNO ID: [id number] Author: DENNIS CAMARGO RN Service: ? Author Type: Registered Nurse Type: ED Notes Filed: 06/22/2023 22:17 Note Text: Patient given verbal and written D/C instructions. Medications and follow up care discussed. Instructed to return to ED if conditions and symptoms persist or worsen. All questions addressed and answered pt verbalized understanding. Pt discharged to [facility], [facility] noted. Normal [facility] HAV IgM Ser Qlon 06-23-2023 HAV IgM Ql (S) Negative Normal Negative [facility] Comment on above: Order Comment: Speci men Type: BLOOD SPECIMENOrdering Facility: [facility] Address: [address] [place] [address] Result Comment: No e vidence of recent infection with Hepatitis A virus. Performed By: #### 3 1204-1, 5195-3, 92729-7 ####[facility] LABCLIA [id number] [address] [place] HBV core IgM Ser Qlon 2023 HBV core IgM Ql (S) Negative Normal Negative [facility] Comment on above: Order Comment: [facility] Type: BLOOD SPECIMENOrdering Facility: [facility] Address: [address] [place] [address] Result Comment: No e vidence of recent infection with Hepatitis B virus. Should recent infection be suspected, repeat testing may be considered 3-4 weeks after this draw. Performed By: #### 3 1204-1, 5195-3, 18689-8 ####[facility] LABCLIA [id number] [address] [address] [place] HBV surface Ag Ser Qlon 06-13 HBV surface Ag Ql (S) Negative Normal Negative [facility] Comment on above: Order Comment: Speci zoraida Type: BLOOD SPECIMENOrdering Facility: [facility] Address: [address] [place] [address] Performed By: #### 3 1204-1, 5195-3, 66253-2 ####[facility] LABCLIA [id number] [address] [place] HCV RNA SerPl SENAIT+probe-aCnc on 06-23-2023 HCV RNA SENAIT+probe Qn Not detected Normal HCV RNA not detected by PCR. [facility] Comment on above: Order Comment: Roselyn conway Type: BLOOD SPECIMEN Ordering Facility: [facility] Address: [address] [place] [address] Performed By: #### 1 1011-4 #### [facility] CLIA [id number] [place] ALLIED HEALTHon 06-22-2023 ALLIED HEALTH HNO ID: [id number] Author: SELENA AMADOR RT(R) Service: Radiology Author [...] DATE: June 22, 2023 TIME: 7:46 PM [facility] ALLIED HEALTH HNO ID: [id number] Author: DELLA BEST RDMS, RVT Service: Radiology Author Type: Cattle Rancher Type: Allied Health Filed: 06/22/2023 18:55 Note [...] RDMS, RVT June 22, 2023 6:55 PM [facility] CBC W Auto Differential pane l (Bld)on 06-22-2023 Basophils (Bld) [#/Vol] 0.03 10*3/uL Normal <0.11 [facility] Comment on above: Order Comment: Speci men Type: BLOOD SPECIMENOrdering Facility: [facility] Address: [address] [place] [address] Performed By: #### 5 7021-8 ####[facility] LABORATORYCLIA [id number] [address] [place], [place] [address] [place] Basophils/100 WBC (Bld) 0.6 % Normal [facility] Comment on above: Order Comment: Speci men Type: BLOOD SPECIMENOrdering Facility: [facility] Address: [address] [place] [address] Performed By: #### 5 7021-8 ####[facility] LABORATORYCLIA [id number] [address] [place] [address] [place] Differential cell count method Nom (Bld) Auto Normal [facility] Comment on above: Order Comment: Speci men Type: BLOOD SPECIMENOrdering Facility: [facility] Address: [address] [place] [address] Performed By: #### 5 7021-8 ####[facility] LABORATORYCLIA [id number] [place] [address] [place] Eosinophils (Bld) [#/Vol] 0.03 10*3/uL Normal <0.46 [facility] Comment on above: Order Comment: Speci men Type: BLOOD SPECIMENOrdering Facility: [facility] Address: [address] [place] [address] Performed By: #### 5 7021-8 ####[facility] LABORATORYCLIA [id number] [place] [address] [place] Eosinophils/100 WBC (Bld) 0.6 % Normal [facility] Comment on above: Order Comment: Speci men Type: BLOOD SPECIMENOrdering Facility: [facility] Address: [address] [place] [address] Performed By: #### 5 7021-8 ####[facility] LABORATORYCLIA [id number] [address] [place] [address] [place] Erythrocyte distribution width (RBC) [Ratio] 16.5 % High 11.5-15.0 [facility] Comment on above: Order Comment: Speci men Type: BLOOD SPECIMENOrdering Facility: [facility] Address: [address] [place] [address] Performed By: #### 5 7021-8 ####[facility] LABORATORYCLIA [id number] [place] [address] [place] Hematocrit (Bld) [Volume fraction] 37.7 % Normal 36.0-46.0 [facility] Comment on above: Order Comment: Speci men Type: BLOOD SPECIMENOrdering Facility: [facility] Address: [address] [place] [address] Performed By: #### 5 7021-8 ####[facility] LABORATORYCLIA [id number] [place] [address] [place] Hemoglobin (Bld) [Mass/Vol] 11.7 g/dL Normal 11.5-15.5 [facility] Comment on above: Order Comment: Speci men Type: BLOOD SPECIMENOrdering Facility: [facility] Address: [address] [place] [address] Performed By: #### 5 7021-8 ####[facility] LABORATORYCLIA [id number] [address] [place] Immature granulocytes (Bld) [#/Vol] 10*3/uL Normal <0.10 [facility] Comment on above: Order Comment: Speci men Type: BLOOD SPECIMENOrdering Facility: [facility] Address: [address] [place] [address] Performed By: #### 5 7021-8 ####[facility] LABORATORYCLIA [id number] [address] [place] Immature granulocytes/100 WBC (Bld) 0.4 % Normal [facility] Comment on above: Order Comment: Speci men Type: BLOOD SPECIMENOrdering Facility: [facility] Address: [address] [place] [address] Performed By: #### 5 7021-8 ####[facility] LABORATORYCLIA [id number] [address] [place] [address] [place] Lymphocytes (Bld) [#/Vol] 1.87 10*3/uL Normal 1.00-4.00 [facility] Comment on above: Order Comment: Speci men Type: BLOOD SPECIMENOrdering Facility: [facility] Address: [address] [place] [address] Performed By: #### 5 7021-8 ####[facility] LABORATORYCLIA [id number] [place] [address] [place] Lymphocytes/100 WBC (Bld) 34.4 % Normal [facility] Comment on above: Order Comment: Speci men Type: BLOOD SPECIMENOrdering Facility: [facility] Address: [address] [place] [address] Performed By: #### 5 7021-8 ####[facility] LABORATORYCLIA [id number] [place] [address]68313 [place] MCH (RBC) [Entitic mass] 24.5 pg Low 26.0-34.0 [facility] Comment on above: Order Comment: Speci men Type: BLOOD SPECIMENOrdering Facility: [facility] Address: [address] [place] [address] Performed By: #### 5 7021-8 ####[facility] LABORATORYCLIA [id number] [place] 0468313 [place] MCHC (RBC) [Mass/Vol] 31.0 g/dL Normal 30.5-36.0 [facility] Comment on above: Order Comment: Speci men Type: BLOOD SPECIMENOrdering Facility: [facility] Address: [address] [place] [address] Performed By: #### 5 7021-8 ####[facility] LABORATORYCLIA [id number] [place] 04[address]313 [place] MCV (RBC) [Entitic vol] 79.0 fL Low 80.0-100.0 L [facility] Comment on above: Order Comment: Speci men Type: BLOOD SPECIMENOrdering Facility: [facility] Address: [address] [place] [address] Performed By: #### 5 7021-8 ####[facility] LABORATORYCLIA [id number] [address] [place] [address] [place] Monocytes (Bld) [#/Vol] 0.25 10*3/uL Normal <0.87 [facility] Comment on above: Order Comment: Speci men Type: BLOOD SPECIMENOrdering Facility: [facility] Address: [address] [place] [address] Performed By: #### 5 7021-8 ####[facility] LABORATORYCLIA [id number] [address] [place] [address] [place] Monocytes/100 WBC (Bld) 4.6 % Normal [facility] Comment on above: Order Comment: Speci men Type: BLOOD SPECIMENOrdering Facility: [facility] Address: [address] [place] [address] Performed By: #### 5 7021-8 ####[facility] LABORATORYCLIA [id number] [place] [address] [place] Neutrophils (Bld) [#/Vol] 3.23 10*3/uL Normal 1.45-7.50 [facility] Comment on above: Order Comment: Speci men Type: BLOOD SPECIMENOrdering Facility: [facility] Address: [address] [place] [address] Performed By: #### 5 7021-8 ####[facility] LABORATORYCLIA [id number] [place] [address] [place] Neutrophils/100 WBC (Bld) 59.4 % Normal [facility] Comment on above: Order Comment: Speci men Type: BLOOD SPECIMENOrdering Facility: [facility] Address: [address] [place] [address] Performed By: #### 5 7021-8 ####[facility] LABORATORYCLIA [id number] [address] [place] [address] [place] Nucleated RBC (Bld) [#/Vol] 10*3/uL Normal <0.01 [facility] Comment on above: Order Comment: Speci men Type: BLOOD SPECIMENOrdering Facility: [facility] Address: [address] [place] [address] Performed By: #### 5 7021-8 ####[facility] LABORATORYCLIA [id number] [place] [id number] [place] Nucleated RBC/100 WBC (Bld) [Ratio] 0.0 /100 WBC Normal [facility] Comment on above: Order Comment: Speci men Type: BLOOD SPECIMENOrdering Facility: [facility] Address: [address] [place] [address] Performed By: #### 5 7021-8 ####[facility] LABORATORYCLIA [id number] [place] [address] [place] Platelet mean volume (Bld) [Entitic vol] 9.4 fL Normal 9.0-12.7 [facility] Comment on above: Order Comment: Speci men Type: BLOOD SPECIMENOrdering Facility: [facility] Address: [address] [place] [address] Performed By: #### 5 7021-8 ####[facility] LABORATORYCLIA [id number] [place] [address] [place] Platelets (Bld) [#/Vol] 486 10*3/uL High 150-400 [facility] Comment on above: Order Comment: Speci men Type: BLOOD SPECIMENOrdering Facility: [facility] Address: [address] [place] [address] Performed By: #### 5 7021-8 ####[facility] LABORATORYCLIA [id number] [place] [id number] [place] RBC (Bld) [#/Vol] 4.77 10*6/uL Normal 3.90-5.20 [facility] Comment on above: Order Comment: Speci men Type: BLOOD SPECIMENOrdering Facility: [facility] Address: [address] [place] [address] Performed By: #### 5 7021-8 ####FAITH LABORATORYCLIA [id number] [place] [id number] [place] WBC (Bld) [#/Vol] 5.43 10*3/uL Normal 3.70-11.00 [facility] Comment on above: Order Comment: Speci men Type: BLOOD SPECIMENOrdering Facility: [facility] Address: [place] [id number] Performed By: #### 5 7021-8 ####FAITH LABORATORYCLIA [id number] [address] [place] [address] [place] [address] ABD/PEL W IVCONon [...] Tissues: No significant finding. Lower thorax: Unremarkable. Calender Feeder (topogram) images: Unremarkable. IMPRESSION: No acute intra-abdominal or pelvic process identified. Arts And Crafts Teacher: ANTONIO Transcribe Date/Time: Jun 22 2023 8:25P Dictated by : CHAD SCHILLING MD This examination was interpreted and the report reviewed and electronically signed by: CHAD SCHILLING MD on Jun 22 2023 8:29PM EST [id number] Normal [facility] Comprehensive metabolic 2000 panelon 06-22-2023 Albumin [Mass/Vol] 4.8 g/dL Normal 3.9-4.9 [facility] Comment on above: Order Comment: Speci men Type: BLOOD SPECIMENOrdering Facility: [facility] Address: [address] [place] [address] Performed By: #### 2 4323-8, 3040-3, ####FAITH LABORATORYCLIA [id number] [address] [place], [place] [address] [place] ALP [Catalytic activity/Vol] 108 U/L Normal 34-123 [facility] Comment on above: Order Comment: Speci men Type: BLOOD SPECIMENOrdering Facility: [facility] Address: [address] [place] [address] Performed By: #### 2 4323-8, 3040-3, ####FAITH LABORATORYCLIA [id number] [address] [place], [place] [address] [place] ALT [Catalytic activity/Vol] 63 U/L High 7-38 [facility] Comment on above: Order Comment: Speci men Type: BLOOD SPECIMENOrdering Facility: [facility] Address: [address] [place] [address] Performed By: #### 2 4323-8, 0-3, ####FAITH LABORATORYCLIA [id number] [place] [id number] [place] Anion gap [Moles/Vol] 13 mmol/L Normal 9-18 [facility] Comment on above: Order Comment: Speci men Type: BLOOD SPECIMENOrdering Facility: [facility] Address: [address] [place] [address] Performed By: #### 2 4323-8, 3040-3, ####FAITH LABORATORYCLIA [id number] [address] [place], [place] [address] [place] AST [Catalytic activity/Vol] 109 U/L High 13-35 [facility] Comment on above: Order Comment: Speci men Type: BLOOD SPECIMENOrdering Facility: [facility] Address: [address] [place] [address] Performed By: #### 2 4323-8, 3039-3, ####FAITH LABORATORYCLIA [id number] [place] [id number] [place] Bilirubin [Mass/Vol] 0.4 mg/dL Normal 0.2-1.3 [facility] Comment on above: Order Comment: Speci men Type: BLOOD SPECIMENOrdering Facility: [facility] Address: [address] [place] [address] Performed By: #### 2 4323-8, 3039-3, ####FAITH LABORATORYCLIA [id number] [place] [id number] [place] Calcium [Mass/Vol] 9.6 mg/dL Normal 8.5-10.2 [facility] Comment on above: Order Comment: Speci men Type: BLOOD SPECIMENOrdering Facility: [facility] Address: [address] [place] [address] Performed By: #### 2 4323-8, 3, ####FAITH LABORATORYCLIA [id number] [place] [id number] [place] Chloride [Moles/Vol] 102 mmol/L Normal 97-105 [facility] Comment on above: Order Comment: Speci men Type: BLOOD SPECIMENOrdering Facility: [facility] Address: [address] [place] [address] Performed By: #### 2 4323-8, 3039-3, ####FAITH LABORATORYCLIA [id number] [place] [id number] [place] CO2 [Moles/Vol] 23 mmol/L Normal 22-30 [facility] Comment on above: Order Comment: Speci men Type: BLOOD SPECIMENOrdering Facility: [facility] Address: [address] [place] [address] Performed By: #### 2 4323-8, 3039-3, ####FAITH LABORATORYCLIA [id number] [place] [id number] [place] Creatinine [Mass/Vol] 0.64 mg/dL Normal 0.58-0.96 [facility] Comment on above: Order Comment: Roselyn conway Type: BLOOD SPECIMENOrdering Facility: [facility] Address: [address] [place] [address] Performed By: #### 2 4323-8, 3040-3, ####FAITH LABORATORYCLIA [id number] [place] [address] [place] Creatinine and Glomerular filtration rate.predicted panel (S/P/Bld) 118 mL/min/1.73m??? Normal >=60 [facility] Comment on above: Order Comment: Roselyn conway Type: BLOOD SPECIMENOrdering Facility: [facility] Address: [address] [place] [address] Result Comment: Shelley mated Glomerular Filtration Rate [...] GFR. Performed By: #### 2 4323-8, 0-3, ####FAITH LABORATORYCLIA [id number] [place] [id number] [place] Glucose [Mass/Vol] 102 mg/dL High 74-99 [facility] Comment on above: Order Comment: Roselyn conway Type: BLOOD SPECIMENOrdering Facility: [facility] Address: [address] [place] [address] Result Comment: The [place] [employer] (ADA) provides guidance for cutoff [...] Standards of Medical Care in Diabetes 2016, [place] [employer]. Diabetes Care. 2016.39(Suppl 1). Performed By: #### 2 4323-8, 0-3, ####FAITH LABORATORYCLIA [id number] [place] [id number] [place] Potassium [Moles/Vol] 3.8 mmol/L Normal 3.7-5.1 [facility] Comment on above: Order Comment: Speci men Type: BLOOD SPECIMENOrdering Facility: [facility] Address: [place] [address] Performed By: #### 2 4323-8, 3, ####FAITH LABORATORYCLIA [id number] [place] [address] [place] Protein [Mass/Vol] 8.2 g/dL High 6.3-8.0 [facility] Comment on above: Order Comment: Speci men Type: BLOOD SPECIMENOrdering Facility: [facility] Address: [address] [place] [address] Performed By: #### 2 4323-8, 3, ####FAITH LABORATORYCLIA [id number] [place] [id number] [place] Sodium [Moles/Vol] 138 mmol/L Normal 136-144 [facility] Comment on above: Order Comment: Speci men Type: BLOOD SPECIMENOrdering Facility: [facility] Address: [address] [place] [address] Performed By: #### 2 4323-8, 3, ####FAITH LABORATORYCLIA [id number] [place] [id number] [place] Urea nitrogen [Mass/Vol] 8 mg/dL Normal 7-21 [facility] Comment on above: Order Comment: Speci men Type: BLOOD SPECIMENOrdering Facility: [facility] Address: [address] [place] [address] Performed By: #### 2 4323-8, 3040-3, 74346-9 ####FAITH LABORATORYIA [id number] [place] [id number] [place] ECG COMPLETEon 06-22-2023 ECG COMPLETE Ventricular Rate : 1 05 BPM Atrial Rate : 103 BPM P-R Interval : 152 ms QRS Duration : 77 ms Q-T Interval : 324 ms QTC Calculation(Bazett) : 429 ms Calculated P [place] : 42 degrees Calculated R [place] : 56 degrees Calculated T [place] : 49 degrees Sinus tachycardia Low voltage, precordial leads Anteroseptal infarct, old Abnormal ECG no stemi 1814 Confirmed by MD SEN BRENT ([id number]), research editor STEPHENIE ERIC ([id number]) on 06/23/2023 12:09:36 PM NAME : ANTONIA NOYOLA PID : [id number] : 1985 Gender : Female Race : ORD : [id number] Procedure Date : Jun 22 2023 18:10:13 Edit Date : Jun 23 2023 12:09:40 Diagnosis: Sinus tachycardia Low voltage, precordial leads Anteroseptal infarct, old Abnormal ECG no stemi 1814 Confirmed by MD SEN BRENT ([id number]), research editor STEPHENIE ERIC (1940) on 06/23/2023 12:09:36 PM Test Reason : Tachycardia Location : 502 : [facility] ED Overread By : MD SEN BRENT Edited By : STEPHENIE ERIC Referred By : , Acquired by : DAVID [facility] ED NOTEon 06-22-2023 ED NOTE HNO ID: [id number] Author: DENNIS CAMARGO RN Service: ? Author Type: Registered Nurse Type: ED Notes Filed: 06/22/2023 21:56 Note Text: Assumed care of pt at this time and received report from previous RN. [facility] ED NOTE HNO ID: [id number] Author: MATILDE DAVIS RN Service: Nursing Author Type: Registered Nurse Type: ED Notes Filed: 06/22/2023 17:38 Note Text: Pt presents with LLQ pain that radiates to back that began this morning but worsened one hour prior to arrival. Denies urinary complaints. [facility] ED PROV NOTEon 06-22-2023 ED PROV NOTE HNO ID: [id number] Author: EVGENY SEN MD Service: Emergency Medicine [...] with some relief. History provided by: Patient applications specialist used: No PAST MEDICAL HISTORY Diagnosis [...] Hyperlipidemia Father Heart Father bypass surgery, stents, [place] Social History Tobacco Use Smoking status: Never [...] Value Ref Range (more content not included)... [facility] ED Triage Noteon 06-22-2023 ED Triage Note HNO ID: [id number] Author: TABBY LUCIANO PA-C Service: ? Author Type: Physician Holter Scanning Technician Type: ED Triage Notes Filed: 06/22/2023 17:43 [...] the treating team. SIGNATURE: Tabby Luciano PA-C [facility] HCG Preg Ur Qlon 06-22-2023 HCG ( test) Ql (U) Negative Normal Negative [facility] Comment on above: Order Comment: Speci men Type: URINE SPECIMENOrdering Facility: [facility] Address: [address] [place] [address] Result Comment: This test is intended to aid in the early detection of . Very dilute urine samples, as indicated by a low specific gravity, may not contain customer service representative levels of hCG. This test [...] for . Performed By: #### 2 106-3 ####FAITH LABORATORYCLIA [id number] [place] [id number] [place] Lipase SerPl-cCncon 06-22-19 24 Lipase [Catalytic activity/Vol] 34 U/L Normal 16-61 [facility] Comment on above: Order Comment: Speci men Type: BLOOD SPECIMENOrdering Facility: [facility] Address: [address] [place] [address] Performed By: #### 2 4323-8, 3040-3, 15291-6 ####FAITH [facility] CENTERIA [id number] [place] [address] [place] Magnesium SerPl-mCncon 06-22 Magnesium [Mass/Vol] 2.2 mg/dL Normal 1.7-2.3 [facility] Comment on above: Order Comment: Speci men Type: BLOOD SPECIMENOrdering Facility: [facility] Address: [address] [place] [address] Performed By: #### 2 4323-8, 3040-3, 33207-8 ####FAITH [facility] MED[facility] CENTERIA [id number] [place] [id number] [place] US DOPPLER COMPLETEon [...] and stored in a permanent archive. MQ: [facility]_2021 COMPARISON: None RESULT: Uterus: -Size: 8.1 x [...] Normal sonographic appearance of the female pelvis. Arts And Crafts Teacher: [facility] CENTERLuisito Transcribe Date/Time: Jun 22 2023 7:44P Dictated by : Vasu BURNS MD This examination was interpreted and the report reviewed and electronically signed by: Vasu BURNS MD on Jun 22 2023 7:48PM EST [id number] [facility] FEMALE PELVIS TRANSABD LT Don 06-22-2023 FEMALE PELVIS TRANSABD LTD * * *Final Report* * * DATE OF EXAM: Jun 22 2023 6:54PM [facility] 1059 - FEMALE PELVIS TRANSABD LTD / [...] and stored in a permanent archive. MQ: [facility]_2021 COMPARISON: None RESULT: Uterus: -Size: 8.1 x [...] Normal sonographic appearance of the female pelvis. Arts And Crafts Teacher: ANTONIO Transcribe Date/Time: Jun 22 2023 7:44P Dictated by : Vasu BURNS MD This examination was interpreted and the report reviewed and electronically signed by: Vasu BURNS MD on Jun 22 2023 7:48PM EST [id number] [facility] FEMALE PELVIS TRANSVAGon 06-22-2023 FEMALE PELVIS [...] and stored in a permanent archive. MQ: [facility]_2021 COMPARISON: None RESULT: Uterus: -Size: 8.1 x [...] Normal sonographic appearance of the female pelvis. Arts And Crafts Teacher: [facility] Transcribe Date/Time: Jun 22 2023 7:44P Dictated by : Vasu BURNS MD This examination was interpreted and the report reviewed and electronically signed by: Vasu BURNS MD on Jun 22 2023 7:48PM EST [id number] Normal [facility] Urinalysis complete panel (U )on 06-22-2023 Bacteria LM.HPF (Urine sed) [#/Area] Few Abnormal None Seen [facility] Comment on above: Order Comment: Speci men Type: URINE SPECIMENOrdering Facility: [facility] Address: [address] [place] [address] Performed By: #### 2 4356-8 ####FAITH LABORATORYCLIA [id number] [address] [place] [address] [place] Bilirubin Ql (U) Negative Normal Negative [facility] Comment on above: Order Comment: Speci men Type: URINE SPECIMENOrdering Facility: [facility] Address: [address] [place] [address] Performed By: #### 2 4356-8 ####FAITH LABORATORYCLIA [id number] [address] [place] Clarity (Unsp spec) Clear Normal Clear [facility] Comment on above: Order Comment: Speci men Type: URINE SPECIMENOrdering Facility: [facility] Address: [address] [place] [address] Performed By: #### 2 4356-8 ####FAITH LABORATORYCLIA [id number] [address] [place] Color (U) Yellow Normal Yellow [facility] Comment on above: Order Comment: Speci men Type: URINE SPECIMENOrdering Facility: [facility] Address: [address] [place] [address] Performed By: #### 2 4356-8 ####FAITH LABORATORYCLIA [id number] [address] Epithelial cells LM.HPF (Urine sed) [#/Area] Few Normal [facility] Comment on above: Order Comment: Speci men Type: URINE SPECIMENOrdering Facility: [facility] Address: [address] [place], [place] [address] Performed By: #### 2 4356-8 ####FAITH LABORATORYCLIA [id number] [address] [place] [address] Glucose Test strip (U) [Mass/Vol] Negative Normal Negative [facility] Comment on above: Order Comment: Speci men Type: URINE SPECIMENOrdering Facility: [facility] Address: [address] [place] [address] Performed By: #### 2 4356-8 ####FAITH LABORATORYCLIA [id number] [address] [place] [address] [place] Hemoglobin Ql (U) Negative Normal Negative [facility] Comment on above: Order Comment: Speci men Type: URINE SPECIMENOrdering Facility: [facility] Address: [address] [place] [address] Performed By: #### 2 4356-8 ####FAITH LABORATORYCLIA [id number] [address] [place] [address] [place] Ketones Ql (U) Trace Abnormal Negative [facility] Comment on above: Order Comment: Speci men Type: URINE SPECIMENOrdering Facility: [facility] Address: [address] [place] [address] Performed By: #### 2 4356-8 ####FAITH LABORATORYCLIA [id number] [address] [place] [address] Leukocyte esterase Test strip Ql (U) Negative Normal Negative [facility] Comment on above: Order Comment: Speci men Type: URINE SPECIMENOrdering Facility: [facility] Address: [address] [place] [address] Performed By: #### 2 4356-8 ####FAITH LABORATORYCLIA [id number] [address] [place] [address] [place] Nitrite Ql (U) Negative Normal Negative [facility] Comment on above: Order Comment: Speci men Type: URINE SPECIMENOrdering Facility: [facility] Address: [address] [place] [address] Performed By: #### 2 4356-8 ####FAITH LABORATORYCLIA [id number] [address] [place] [address] [place] pH (U) 6.5 [pH] Normal 5.0-8.0 [facility] Comment on above: Order Comment: Speci men Type: URINE SPECIMENOrdering Facility: [facility] Address: [address] [place] [address] Performed By: #### 2 4356-8 ####FAITH LABORATORYCLIA [id number] [place] [id number] [place] Protein (U) [Mass/Vol] Negative Normal Negative [facility] Comment on above: Order Comment: Speci men Type: URINE SPECIMENOrdering Facility: [facility] Address: [address] [place] [address] Performed By: #### 2 4356-8 ####FAITH LABORATORYCLIA [id number] [place] [address] [place] RBC LM.HPF (Urine sed) [#/Area] 0-3 /HPF Normal 0-3 /HPF [facility] Comment on above: Order Comment: Speci men Type: URINE SPECIMENOrdering Facility: [facility] Address: [address] [place] [address] Performed By: #### 2 4356-8 ####FAITH LABORATORYIA [id number] [place] [address] [place] Specific gravity (U) [Rel density] 1.020 Normal 1.005-1.030 [facility] Comment on above: Order Comment: Speci men Type: URINE SPECIMENOrdering Facility: [facility] Address: [address] [place] [address] Performed By: #### 2 4356-8 ####FAITH LABORATORYCLIA [id number] [place] [address] [place] Urobilinogen Ql (U) 1.0 EU/dL Normal 0.2-1.0 EU/dL [facility] Comment on above: Order Comment: Speci men Type: URINE SPECIMENOrdering Facility: [facility] Address: [address] [place] [address] Performed By: #### 2 4356-8 ####FAITH LABORATORYCLIA [id number] [place] [address] [place] WBC LM.HPF (Urine sed) [#/Area] 0-5 /HPF Normal 0-5 /HPF [facility] Comment on above: Order Comment: Speci men Type: URINE SPECIMENOrdering Facility: [facility] Address: [address] [place], [place] [address] [address] Performed By: #### 2 4356-8 ####FAITH LABORATORYCLIA [id number] [place] [address] [place] Alanine aminotransferase [En zymatic activity/volume] in Serum or PlasmaOrdered By: Elier Jackson on 04-30-2023 ALT [Catalytic activity/Vol] 15 U/L Normal 7-[address] [facility] Comment on above: Performed By: #### H CGQNT #### [facility] [address] [place] [address] [place] Albumin [Mass/volume] in Ser um or Plasma by Bromocresol green (BCG) dye binding methoOrdered By: Elier Jackson on 04-30-2023 Albumin BCG dye [Mass/Vol] 4.3 g/dL 3.5-5.[address] [facility] Alkaline phosphatase [Enzyma tic activity/volume] in Serum or PlasmaOrdered By: Elier Jackson on 04-30-2023 ALP [Catalytic activity/Vol] 68 U/L Normal 34-[address] [facility] Comment on above: Performed By: #### H CGQNT #### [facility] [address] [place] [address] [place] Aspartate aminotransferase [ Enzymatic activity/volume] in Serum or PlasmaOrdered By: Elier Jackson on 04-30-2023 AST [Catalytic activity/Vol] 17 U/L Normal 13-[address] [facility] Comment on above: Performed By: #### H CGQNT #### [facility] [address] [place] [address] [place] Automated basophil %Ordered By: Elier Jackson on 04-30-2023 Basophils/100 WBC (Bld) 1.3 % Normal . [facility] Comment on above: Performed By: #### H CGQNT #### [address] Automated basophil countOrde red By: Elier Manuel on 04-30-2023 Basophils (Bld) [#/Vol] 0.0 10*3/uL Normal 0.0-0.[address] [facility] Comment on above: Result Comment: PERF ORMED BY: [place] [address] PATHOLOGIST PREDICTIVE MAINTENANCE TECHNICIAN FARNAZ ZULETA M.D. Performed By: #### H CGQNT #### [address] Automated blood monocyte cou ntOrdered By: Elier Jackson on 04-30-2023 Monocytes (Bld) [#/Vol] 0.3 10*3/uL Normal 0.0-0.[address] [facility] Comment on above: Performed By: #### H CGQNT #### [address] Automated eosinophil %Ordere d By: Elier Jackson on 04-30-2023 Eosinophils/100 WBC (Bld) 0.6 % Normal . [facility] Comment on above: Performed By: #### H CGQNT #### [address] Automated eosinophil countOr dered By: Elier Jackson on 04-30-2023 Eosinophils (Bld) [#/Vol] 0.0 10*3/uL Normal 0.0-0.[address] [facility] Comment on above: Performed By: #### H CGQNT #### [address] Automated erythrocytes count in urine sediment (number/area)Ordered By: Elier Jackson on 04-30-2023 RBC Auto (Urine sed) [#/Area] 5-9 [HPF] 0-[address] [facility] Automated leukocytes count i n urine sediment (number/area)Ordered By: Elier Jackson on 04-30-2023 WBC Auto (Urine sed) [#/Area] 0-1 [HPF] 0-[address] [facility] Automated monocyte %Ordered By: Elier Jackson on 04-30-2023 Monocytes/100 WBC (Bld) 7.0 % Normal . [facility] Comment on above: Performed By: #### H CGQNT #### [address] Automated neutrophil %Ordere d By: Elier Jackson on 04-30-2023 Neutrophils/100 WBC (Bld) 46.9 % Normal . [facility] Comment on above: Performed By: #### H CGQNT #### [address] Automated urine color determ inationOrdered By: Elier Jackson on 04-30-2023 Color (U) Yellow Normal Yellow [facility] Comment on above: Order Comment: Name Collection Type:: Clean-Voided Midstream Performed By: #### U HCG, ADDONUAPLUS #### [address] Basic Metabolic Panelon 04-13 Creatinine Clr Calc Pharmacy 107.67 Normal [facility] Comment on above: Performed By: #### H CGQNT #### [address] GFR/1.73 sq M.predicted MDRD (S/P/Bld) [Vol rate/Area] mL/min/{1.73_m2} Normal [facility] Comment on above: Performed By: #### H CGQNT #### [address] Bilirubin Test strip Ql (U)O rdered By: Elier Jackson on 04-30-2023 Bilirubin Ql (U) Negative Negative [facility] Bilirubin.direct [Mass/volum e] in Serum or PlasmaOrdered By: Elier Jackson on 04-30-2023 Bilirubin.direct [Mass/Vol] 0.10 mg/dL 0.03-0.[address] [facility] Bilirubin.total [Mass/volume ] in Serum or PlasmaOrdered By: Elier Jackson on 04-30-2023 Bilirubin [Mass/Vol] 0.4 mg/dL Normal 0.3-1.0 [facility] Comment on above: Performed By: #### H CGQNT #### [address] Calcium [Mass/volume] in Ser um or PlasmaOrdered By: Elier Velásquezarleen on 04-30-2023 Calcium [Mass/Vol] 9.2 mg/dL Normal 8.6-10.3 [facility] Comment on above: Performed By: #### H CGQNT #### [address] Carbon dioxide, total [Moles /volume] in Serum or PlasmaOrdered By: Elier Velásquezarleen on 04-30-2023 CO2 [Moles/Vol] 20.1 mmol/L Low 21.0-31.[address] [facility] Comment on above: Performed By: #### H CGQNT #### [address] Chloride [Moles/volume] in S binu or PlasmaOrdered By: Elier Velásquezarleen on 04-30-2023 Chloride [Moles/Vol] 109 mmol/L High 98-107 [facility] Comment on above: Performed By: #### H CGQNT #### [address] Complete Blood Count Auto Di ffon 04-30-2023 Mean Corpuscular HGB Conc 34.7 g/dL Normal 32.0-35.0 [facility] Comment on above: Performed By: #### H CGQNT #### [address] Monocytes/100 WBC (Bld) 16.58 % Normal 0.00-20.00 [facility] Comment on above: Performed By: #### H CGQNT #### [address] NRBC% 0.1 /100{WBC} Normal 0-0.5 [facility] Comment on above: Performed By: #### H CGQNT #### [place] [address] [place] Creatinine [Mass/volume] in Serum or PlasmaOrdered By: Elier Manuel on 04-30-2023 Creatinine [Mass/Vol] 0.65 mg/dL Normal 0.60-1.20 [facility] Comment on above: Performed By: #### H CGQNT #### [facility] [address] [place] [address] [place] Dipstick and Microscopicon 1 06-30-2022 Appearance (U) Clear Normal Clear [facility] Comment on above: Order Comment: Name Collection Type:: Clean-Voided Midstream Performed By: #### U HCG, ADDONUAPLUS #### [place] [address] [place] Bacteria,Urine None Seen Normal None Seen [facility] Comment on above: Order Comment: Name Collection Type:: Clean-Voided Midstream Performed By: #### U HCG, ADDONUAPLUS #### [place] [address] [place] Bilirubin,Urine Negative Normal Negative [facility] Comment on above: Order Comment: Name Collection Type:: Clean-Voided Midstream Performed By: #### U HCG, ADDONUAPLUS #### [address] Glucose Ql (U) Normal Normal Normal [facility] Comment on above: Order Comment: Name Collection Type:: Clean-Voided Midstream Performed By: #### U HCG, ADDONUAPLUS #### [place] [address] [place] Hyaline Casts,Urine 0-8 Normal 0-8 [facility] Comment on above: Order Comment: Name Collection Type:: Clean-Voided Midstream Performed By: #### U HCG, ADDONUAPLUS #### [place] [address] [place] Ketones Ql (U) Negative Normal Negative [facility] Comment on above: Order Comment: Name Collection Type:: Clean-Voided Midstream Performed By: #### U HCG, ADDONUAPLUS #### [address] Leukocyte esterase Test strip Ql (U) Negative Normal Negative [facility] Comment on above: Order Comment: Name Collection Type:: Clean-Voided Midstream Performed By: #### U HCG, ADDONUAPLUS #### [address] Nitrite,Urine Negative Normal Negative [facility] Comment on above: Order Comment: Name Collection Type:: Clean-Voided Midstream Performed By: #### U HCG, ADDONUAPLUS #### [address] Occult Blood,Urine 2+ High Negative [facility] Comment on above: Order Comment: Name Collection Type:: Clean-Voided Midstream Performed By: #### U HCG, ADDONUAPLUS #### [address] Protein,Urine Negative Normal Negative [facility] Comment on above: Order Comment: Name Collection Type:: Clean-Voided Midstream Performed By: #### U HCG, ADDONUAPLUS #### [address] RBC,Urine 5-9 High 0-4 [facility] Comment on above: Order Comment: Name Collection Type:: Clean-Voided Midstream Performed By: #### U HCG, ADDONUAPLUS #### [address] Specificy [place],Urine 1.018 Normal 1.001-1.030 [facility] Comment on above: Order Comment: Name Collection Type:: Clean-Voided Midstream Performed By: #### U HCG, ADDONUAPLUS #### [address] Squamous Epithelial Cell,Urine 0-1 Normal 0-2 [facility] Comment on above: Order Comment: Name Collection Type:: Clean-Voided Midstream Performed By: #### U HCG, ADDONUAPLUS #### [address] Urobilinogen,Urine Normal Normal Normal [facility] Comment on above: Order Comment: Name Collection Type:: Clean-Voided Midstream Performed By: #### U HCG, ADDONUAPLUS #### [address] WBC LM.HPF (Urine sed) [#/Area] 0 /[HPF] Normal 0-4 [facility] Comment on above: Order Comment: Name Collection Type:: Clean-Voided Midstream Performed By: #### U HCG, ADDONUAPLUS #### [address] Erythrocyte distribution wid th [Ratio] by Automated countOrdered By: Elier Jackson on 04-30-2023 Erythrocyte distribution width (RBC) [Ratio] 16.8 % High 11.9-15.[address] [facility] Comment on above: Performed By: #### H CGQNT #### [address] Erythrocytes [#/volume] in B lood by Automated countOrdered By: Elier Jackson on 04-30-2023 RBC (Bld) [#/Vol] 3.68 10*6/uL Normal 3.60-5.00 [facility] Comment on above: Performed By: #### H CGQNT #### [address] Glucose [Mass/volume] in Ser um or [...] the diagnosis of Diabetes Mellitus. Result Comment: [place] om Glucose Reference Range is dependent on time and content of last meal. Glucose of more than 200 mg/dL in a nonstressed, ambulatory subject supports the diagnosis of Diabetes Mellitus. ADA recommended reference range Performed By: #### H CGQNT #### [address] HCG ( test) IA.rapi d Ql (U)Ordered By: Elier Jackson on 04-30-2023 HCG ( test) Ql (U) Negative [facility] HCG,Urineon 04-30-2023 Beta HCG ( test) Ql (U) Negative Normal [facility] Comment on above: Order Comment: Name Collection Type:: Clean-Voided Midstream Result Comment: PERF ORMED BY: [place] [address] PATHOLOGIST PREDICTIVE MAINTENANCE TECHNICIAN FARNAZ ZULETA M.D. Performed By: #### U HCG, ADDONUAPLUS #### [address] Hematocrit [Volume Fraction] of Blood by Automated countOrdered By: Elier Jackson on 04-30-2023 Hematocrit (Bld) [Volume fraction] 32.3 % Low 34.0-46.[address] [facility] Comment on above: Performed By: #### H CGQNT #### [address] Hemoglobin [Mass/volume] in BloodOrdered By: Elier Jackson on 04-30-2023 Hemoglobin (Bld) [Mass/Vol] 11.2 g/dL Low 11.8-15.[address] [facility] Comment on above: Performed By: #### H CGQNT #### [address] Hepatic Panelon 04-30-2023 Albumin [Mass/Vol] 4.3 g/dL Normal 3.5-5.7 [facility] Comment on above: Performed By: #### H CGQNT #### [address] Bilirubin,Indirect 0.3 mg/dL Normal [facility] Comment on above: Performed By: #### H CGQNT #### [address] Bilirubin.indirect [Mass/Vol] 0.10 mg/dL Normal 0.03-0.18 [facility] Comment on above: Performed By: #### H CGQNT #### [address] Ketones Auto test strip (U) [Mass/Vol]Ordered By: Elier Jackson on 04-30-2023 Ketones (U) [Mass/Vol] Negative Negative [facility] - UrinalysisOrder ed By: Elier Jackson on 04-30-2023 Hyaline casts LM Ql (Urine sed) 0-8 [LPF] 0-[address] [facility] Leukocytes [#/volume] correc flo for nucleated erythrocytes in Blood by Automated counOrdered By: Elier Jackson on 04-30-2023 WBC corrected for nucl RBC Auto (Bld) [#/Vol] 3.6 10*3/uL 3.8-11.[address] [facility] Leukocytes [#/volume] in Blo od by Automated countOrdered By: Elier Jackson on 04-30-2023 WBC (Bld) [#/Vol] 3.6 10*3/uL Low 3.8-11.6 [facility] Comment on above: Performed By: #### H CGQNT #### [address] Lipase [Enzymatic activity/v olume] in Serum or PlasmaOrdered By: Elier Jackson on 04-30-2023 Lipase [Catalytic activity/Vol] 31.0 U/L Normal 11.0-82.[address] [facility] Comment on above: Result Comment: PERF ORMED BY: [address] [place] [address] PATHOLOGIST PREDICTIVE MAINTENANCE TECHNICIAN FARNAZ ZULETA M.D. Performed By: #### H CGQNT #### [address] Lymphocytes [#/volume] in Bl ood by Automated countOrdered By: Elier Jackson on 04-30-2023 Lymphocytes (Bld) [#/Vol] 1.6 10*3/uL Normal 1.00-4.[address] [facility] Comment on above: Performed By: #### H CGQNT #### [address] Lymphocytes/100 leukocytes i n Blood by Automated countOrdered By: Elierjaqui Jackson on 04-30-2023 Lymphocytes/100 WBC (Bld) 44.2 % Normal . [facility] Comment on above: Performed By: #### H CGQNT #### [address] MCH [Entitic mass] by Automa flo countOrdered By: Elier Jackson on 04-30-2023 MCH (RBC) [Entitic mass] 30.4 pg Normal 24.7-34.[address] [facility] Comment on above: Performed By: #### H CGQNT #### [address] MCHC Auto (RBC) [Mass/Vol]Or dered By: Elier Jackson on 04-30-2023 MCHC (RBC) [Mass/Vol] 34.7 g/dL 32.0-35.0 [facility] MCV [Entitic volume] by Auto mated countOrdered By: Elier Jackson on 04-30-2023 MCV (RBC) [Entitic vol] 87.6 fL Normal 80-100 [facility] Comment on above: Performed By: #### H CGQNT #### [address] Monocyte distribution width [Entitic volume] in Blood by AutomatedOrdered By: Elier Jackson on 04-30-2023 Monocyte distribution width Auto (Bld) [Entitic vol] 16.58 % 0.00-20.[address] [facility] Neutrophils [#/volume] in Bl ood by Automated countOrdered By: Elier Jackson on 04-30-2023 Neutrophils (Bld) [#/Vol] 1.7 10*3/uL Low 1.8-7.[address] [facility] Comment on above: Performed By: #### H CGQNT #### [address] Nitrite Test strip Ql (U)Ord ered By: Elier Jackson on 11-18-2023 Nitrite Ql (U) Negative Negative [facility] No Panel InformationOrdered By: Elier Jackson on 04-30-2023 Estimated GFR (CKD-EPI) > 60.0 mL/Min [facility] Creatinine Clearance (Chem 107.[address] [facility] Nucleated erythrocytes [Pres ence] in Blood by Automated countOrdered By: Elier Jackson on 04-30-2023 Nucleated RBC Auto Ql (Bld) 0.1 /100{WBC} 0-0.[address] [facility] Platelet mean volume [Entiti c volume] in Blood by Automated countOrdered By: Elier Jackson on 04-30-2023 Platelet mean volume (Bld) [Entitic vol] 8.0 fL Normal 6.3-10.[address] [facility] Comment on above: Performed By: #### H CGQNT #### [facility] [address] Platelets [#/volume] in Bloo d by Automated countOrdered By: Elier Jackson on 04-30-2023 Platelets (Bld) [#/Vol] 415 10*3/uL Normal 150-[address] [facility] Comment on above: Performed By: #### H CGQNT #### [facility] [address] [place] [address] [place] Potassium [Moles/volume] in Serum or PlasmaOrdered By: Elier Jackson on 04-30-2023 Potassium [Moles/Vol] 3.8 mmol/L Normal 3.5-5.1 [facility] Comment on above: Performed By: #### H CGQNT #### [facility] [address] Protein Auto test strip (U) [Mass/Vol]Ordered By: Elier Jackson on 04-30-2023 Protein (U) [Mass/Vol] Negative Negative [facility] Protein [Mass/volume] in Ser um or PlasmaOrdered By: Elier Jackson on 04-30-2023 Protein [Mass/Vol] 7.6 g/dL Normal 6.4-8.9 [facility] Comment on above: Performed By: #### H CGQNT #### [facility] [address] Serum globulin measurement b y calculation (mass/volume)Ordered By: Elier Jackson on 04-30-2023 Globulin (S) [Mass/Vol] 3.3 g/dL Normal [facility] Comment on above: Performed By: #### H CGQNT #### [facility] [address] [place] [address] Serum or plasma albumin/glob ulin mass ratioOrdered By: Elier Jackson on 04-30-2023 Albumin/Globulin [Mass ratio] 1.3 {ratio} Normal [facility] Comment on above: Performed By: #### H CGQNT #### [facility] [address] [place] [address] Serum or plasma anion gap de terminationOrdered By: Elier Jackson on 04-30-2023 Anion gap [Moles/Vol] 14.7 mmol/L Normal 6.0-15.0 [facility] Comment on above: Performed By: #### H CGQNT #### [address] Serum or plasma non-glucuron idated bilirubin measurement (mass/volume)Ordered By: Elier Jackson on 04-30-2023 Bilirubin.indirect [Mass/Vol] 0.3 mg/dL [facility] Sodium [Moles/volume] in Ser um or PlasmaOrdered By: Elier Jackson on 04-30-2023 Sodium [Moles/Vol] 140 mmol/L Normal 136-145 [facility] Comment on above: Performed By: #### H CGQNT #### [address] Specific gravity Auto test s trip (U) [Rel density]Ordered By: Elier Jackson on 04-30-2023 Specific gravity (U) [Rel density] 1.018 1.001-1.[address] [facility] Squamous epithelial cells de tection in urine sediment by light microscopyOrdered By: Elier Jackson on 04-30-2023 Epithelial cells.squamous LM Ql (Urine sed) 0-1 [HPF] 0-[address] [facility] US pelvic completeon 023 US pelvic complete [facility] Main [place] [address] [place] [id number] Ultrasound Report Signed Patient: Antonia Noyola MR#: [id number] : 1985 Acct:[id number] Age/Sex: 38 / F ADM Date: 04/30/23 Loc: ER Room: Type: [facility] ER Attending Dr: Ordering Provider: Elier Jackson DO Date of Service: 04/30/23 US/US pelvic complete: L pelvic pain ([id number]) US/US transvaginal: LT PELVIC PAIN Copies to: [...] Betancur Jr., D.OEbenezer04/30/2023 6:24 PM Dictation Location: [place] [address] Tech: Brooke Naveen Transcribed By: AMBER 04/30/231823 Dictated By: Dennis Betancur Jr, DO 04/30/231820 Signed By: 04/30/231823 Normal [facility] Urea nitrogen [Mass/volume] in Serum or PlasmaOrdered By: Elier Jackson on 04-30-2023 Urea nitrogen [Mass/Vol] 6 mg/dL Low 7-[address] [facility] Comment on above: Performed By: #### H CGQNT #### [facility] [address] [place], [place] [id number] [facility] Urine bacteria detection by automated methodOrdered By: Elier Jackson on 04-30-2023 Bacteria Auto Ql (U) None seen None Seen [facility] Urine clarity by refractomet ry automatedOrdered By: Elier Jackson on 04-30-2023 Clarity Refractometry automated (U) Clear Clear [facility] Urine glucose measurement by automated test strip (mass/volume)Ordered By: Elier Jackson on 04-30-2023 Glucose Auto test strip (U) [Mass/Vol] Normal mg/dL Normal [facility] Urine hemoglobin detection b y automated test stripOrdered By: Elier Jackson on 04-30-2023 Hemoglobin Auto test strip Ql (U) 2+ Negative [facility] Urine leukocyte esterase det ection by automated test stripOrdered By: Elier Jackson on 04-30-2023 Leukocyte esterase Auto test strip Ql (U) Negative Negative [facility] Urine pH measurement by auto mated test stripOrdered By: Elier Jackson on 04-30-2023 pH (U) 5.5 [pH] Normal 5.0-9.[address] [facility] Comment on above: Order Comment: Name Collection Type:: Clean-Voided Midstream Performed By: #### U HCG, ADDONUAPLUS #### [facility] [address] [place] [address] Urobilinogen Auto test strip (U) [Mass/Vol]Ordered By: Elier Jackson on 04-30-2023 Urobilinogen (U) [Mass/Vol] Normal mg/dL Normal [facility] CHEMISTRYOrdered By: SYSTEM SYSTEM on 04-24-2023 Anion gap [Moles/Vol] 14 mmol/L Normal 6 - 16 mEq/L [facility] Remisol Calcium [Mass/Vol] 9.4 mg/dL Normal 8.9 - 11. 1 mg/dL [facility] Chloride [Moles/Vol] 105 mmol/L Normal 101 - 1 11 mmol/L [facility] CO2 [Moles/Vol] 23 mmol/L Normal 21 - 31 mmol/L [facility] Creatinine [Mass/Vol] 0.7 mg/dL Normal 0.5 - 1.3 mg/dL [facility] GFR/1.73 sq M.predicted among non-blacks MDRD (S/P/Bld) [Vol rate/Area] 115 mL/min/1.73 m2 Normal >=59mL/min/ 1.73 m2 [facility] Chem S Comment on above: Interpretive Data: C hronic kidney disease could be indicated at eGFR's of less than 60 mL/min/1.73m2. Kidney failure is indicated at less than 15 mL/min/1.73m2. Glucose [Mass/Vol] 95 mg/dL Normal 55 - 199 mg/dL [facility] Remisol Comment on above: Interpretive Data: I f this glucose result represents a fasting glucose, interpretation should refer to the following reference range: 55-99 mg/dL Potassium [Moles/Vol] 3.8 mmol/L Normal 3.5 - 5.3 mmol/L [facility] Remisol Sodium [Moles/Vol] 138 mmol/L Normal 135 - 145 mmol/L [facility] Urea nitrogen [Mass/Vol] 6 mg/dL Normal 5 - 21 mg/dL [facility] Remisol Urea nitrogen/Creatinine [Mass ratio] 9 mg/mg [...] PM) Normal Negative [facility] UA Auto SS [place].plasma/[place]. RBC (Bld) [Mass ratio] 0-3 /HPF Normal [...] [facility] UA Auto SS Urobilinogen Qn (U) [id number] {Ivone'U}/dL Normal 0.0 - 1.0 EU/dL [facility] UA Auto SS WBC Auto Ql (U) Trace *ABN* (04/24/23 2:56 PM) Invalid Interpretation Code Negative [facility] UA Auto SS WBC LM.HPF (Urine sed) [#/Area] 0-5 /HPF Normal 0-5/HPF [facility] UA Auto SS Anisocytosis [Presence] in B lood by Light microscopyOrdered By: Sarah Childress on 04-02-2023 Anisocytosis Ql (Bld) Moderate Normal [facility] Comment on above: Performed By: #### U HCG, ADDONUAPLUS #### [facility] [address] Automated erythrocytes count in urine sediment (number/area)Ordered By: Sarah Childress on 04-02-2023 RBC Auto (Urine sed) [#/Area] 20-49 [HPF] 0-[address] [facility] Automated leukocytes count i n urine sediment (number/area)Ordered By: Sarah Childress on 04-02-2023 WBC Auto (Urine sed) [#/Area] 3-4 [HPF] 0-[address] [facility] Automated urine color determ inationOrdered By: Sarah Childress on 04-02-2023 Color (U) Yellow Normal Yellow [facility] Comment on above: Order Comment: Name Collection Type:: Clean-Voided Midstream Performed By: #### U HCG, ADDONUAPLUS #### [facility] [address] Basic Metabolic Panelon 03-14 Creatinine Clr Calc Pharmacy 97.72 Normal [facility] Comment on above: Result Comment: PERF ORMED BY: [place] [address] PATHOLOGIST PREDICTIVE MAINTENANCE TECHNICIAN FARNAZ ZULETA M.D. Performed By: #### U HCG, ADDONUAPLUS #### [address] GFR/1.73 sq M.predicted MDRD (S/P/Bld) [Vol rate/Area] mL/min/{1.73_m2} Normal [facility] Comment on above: Performed By: #### U HCG, ADDONUAPLUS #### [facility] [address] [place] [address] [place] Basophils Auto (Bld) [#/Vol] Ordered By: Sarah Childress on 04-02-2023 Basophils (Bld) [#/Vol] N/A [facility] Basophils/100 WBC Auto (Bld) Ordered By: Sarah Childress on 04-02-2023 Basophils/100 WBC (Bld) N/A [facility] Basophils/100 leukocytes in Blood by Manual countOrdered By: Sarah Monroe on 04-02-2023 Basophils/100 WBC (Bld) 1 % Normal 0-2 [facility] Comment on above: Performed By: #### U HCG, ADDONUAPLUS #### [facility] [address] Bilirubin Test strip Ql (U)O rdered By: Sarahsil Childress on 04-02-2023 Bilirubin Ql (U) Negative Negative [facility] Calcium [Mass/volume] in Ser um or PlasmaOrdered By: Sarah Childress on 04-02-2023 Calcium [Mass/Vol] 9.2 mg/dL Normal 8.6-10.3 [facility] Comment on above: Performed By: #### U HCG, ADDONUAPLUS #### [address] Carbon dioxide, total [Moles /volume] in Serum or PlasmaOrdered By: Sarah Childress on 04-02-2023 CO2 [Moles/Vol] 18.5 mmol/L Low 21.0-31.[address] [facility] Comment on above: Performed By: #### U HCG, ADDONUAPLUS #### [facility] [address] [place] [address] Chloride [Moles/volume] in S binu or PlasmaOrdered By: Sarah Childress on 04-02-2023 Chloride [Moles/Vol] 108 mmol/L High 98-107 [facility] Comment on above: Performed By: #### U HCG, ADDONUAPLUS #### [facility] [address] [place] [address] Creatinine [Mass/volume] in Serum or PlasmaOrdered By: Sarah Childress on 04-02-2023 Creatinine [Mass/Vol] 0.84 mg/dL Normal 0.60-1.20 [facility] Comment on above: Performed By: #### U HCG, ADDONUAPLUS #### [facility] [address] [place] [address] [place] Diff and CBCon 04-02-2023 Hypochromasia Slight Normal [facility] Comment on above: Performed By: #### U HCG, ADDONUAPLUS #### [address] Mean Corpuscular HGB Conc 31.8 g/dL Low 32.0-35.0 [facility] Comment on above: Performed By: #### U HCG, ADDONUAPLUS #### [place] [address] [place] Monocytes/100 WBC (Bld) 18.83 % Normal 0.00-20.00 [facility] Comment on above: Performed By: #### U HCG, ADDONUAPLUS #### [address] Nucleated Red Blood Cell 3 /100{WBC} High 0-0 [facility] Comment on above: Performed By: #### U HCG, ADDONUAPLUS #### [address] Ovalocytes Slight Normal [facility] Comment on above: Performed By: #### U HCG, ADDONUAPLUS #### [address] Platelet Estimate Increased Normal Normal [facility] Comment on above: Performed By: #### U HCG, ADDONUAPLUS #### [address] Platelet Morphology Normal Normal Normal [facility] Comment on above: Result Comment: PERF ORMED BY: [place] [address] PATHOLOGIST PREDICTIVE MAINTENANCE TECHNICIAN FARNAZ ZULETA M.D. Performed By: #### U HCG, ADDONUAPLUS #### [address] Poikilocytosis Slight Normal [facility] Comment on above: Performed By: #### U HCG, ADDONUAPLUS #### [address] Polychromasia Moderate Normal [facility] Comment on above: Performed By: #### U HCG, ADDONUAPLUS #### [facility] [address] [place] [address] [place] Smudge Cells Slight Normal [facility] Comment on above: Performed By: #### U HCG, ADDONUAPLUS #### [facility] [address] [place] [address] Toxic Vacuolation Slight Normal [facility] Comment on above: Performed By: #### U HCG, ADDONUAPLUS #### [facility] [address] [place] [address] [place] Dipstick and Microscopicon 1 Appearance (U) Clear Normal Clear [facility] Comment on above: Order Comment: Name Collection Type:: Clean-Voided Midstream Performed By: #### U HCG, ADDONUAPLUS #### [address] Bacteria,Urine None Seen Normal None Seen [facility] Comment on above: Order Comment: Name Collection Type:: Clean-Voided Midstream Performed By: #### U HCG, ADDONUAPLUS #### [place] [address] [place] Bilirubin,Urine Negative Normal Negative [facility] Comment on above: Order Comment: Name Collection Type:: Clean-Voided Midstream Performed By: #### U HCG, ADDONUAPLUS #### [address] Glucose Ql (U) Normal Normal Normal [facility] Comment on above: Order Comment: Name Collection Type:: Clean-Voided Midstream Performed By: #### U HCG, ADDONUAPLUS #### [facility] [address] [place] [address] [place] Hyaline Casts,Urine 0-8 Normal 0-8 [facility] Comment on above: Order Comment: Name Collection Type:: Clean-Voided Midstream Performed By: #### U HCG, ADDONUAPLUS #### [facility] [address] [place] [address] [place] Ketones Ql (U) Trace High Negative [facility] Comment on above: Order Comment: Name Collection Type:: Clean-Voided Midstream Performed By: #### U HCG, ADDONUAPLUS #### [address] Leukocyte esterase Test strip Ql (U) 1+ High Negative [facility] Comment on above: Order Comment: Name Collection Type:: Clean-Voided Midstream Performed By: #### U HCG, ADDONUAPLUS #### [address] Nitrite,Urine Negative Normal Negative [facility] Comment on above: Order Comment: Name Collection Type:: Clean-Voided Midstream Performed By: #### U HCG, ADDONUAPLUS #### [address] Occult Blood,Urine 3+ High Negative [facility] Comment on above: Order Comment: Name Collection Type:: Clean-Voided Midstream Performed By: #### U HCG, ADDONUAPLUS #### [address] Protein,Urine Negative Normal Negative [facility] Comment on above: Order Comment: Name Collection Type:: Clean-Voided Midstream Performed By: #### U HCG, ADDONUAPLUS #### [address] RBC,Urine 20-49 High 0-4 [facility] Comment on above: Order Comment: Name Collection Type:: Clean-Voided Midstream Performed By: #### U HCG, ADDONUAPLUS #### [place] [address] [place] Specificy [place],Urine 1.018 Normal 1.001-1.030 [facility] Comment on above: Order Comment: Name Collection Type:: Clean-Voided Midstream Performed By: #### U HCG, ADDONUAPLUS #### [place] [address] [place] Squamous Epithelial Cell,Urine 3-4 High 0-2 [facility] Comment on above: Order Comment: Name Collection Type:: Clean-Voided Midstream Performed By: #### U HCG, ADDONUAPLUS #### [address] [place] [address] [place] Urobilinogen,Urine Normal Normal Normal [facility] Comment on above: Order Comment: Name Collection Type:: Clean-Voided Midstream Performed By: #### U HCG, ADDONUAPLUS #### [address] WBC,Urine 3-4 Normal 0-4 [facility] Comment on above: Order Comment: Name Collection Type:: Clean-Voided Midstream Performed By: #### U HCG, ADDONUAPLUS #### [address] Eosinophils Auto (Bld) [#/Vo l]Ordered By: Sarah Childress on 04-02-2023 Eosinophils (Bld) [#/Vol] N/A [facility] Eosinophils/100 WBC Auto (Bl d)Ordered By: Sarah Childress on 04-02-2023 Eosinophils/100 WBC (Bld) N/A [facility] Eosinophils/100 leukocytes i n Blood by Manual countOrdered By: Sarah Childress on 04-02-2023 Eosinophils/100 WBC (Bld) 4 % High 1-[address] [facility] Comment on above: Performed By: #### U HCG, ADDONUAPLUS #### [address] Erythrocyte distribution wid th [Ratio] by Automated countOrdered By: Sarah Childress on 04-02-2023 Erythrocyte distribution width (RBC) [Ratio] 15.2 % Normal 11.9-15.[address] [facility] Comment on above: Performed By: #### U HCG, ADDONUAPLUS #### [address] Erythrocytes [#/volume] in B lood by Automated countOrdered By: Sarah Childress on 04-02-2023 RBC (Bld) [#/Vol] 4.67 10*6/uL Normal 3.60-5.00 [facility] Comment on above: Performed By: #### U HCG, ADDONUAPLUS #### [address] Glucose [Mass/volume] in Ser um or PlasmaOrdered By: Sarah Childress on 04-02-2023 Glucose [Mass/Vol] 94 mg/dL Normal 70-100 [facility] Comment on above: ADA recommended refe rence rangeRandom Glucose Reference Range is dependent on time and content of last meal. Glucose of more than 200 mg/dL in a nonstressed, ambulatory subject supports the diagnosis of Diabetes Mellitus. Result Comment: [place] om Glucose Reference Range is dependent on time and content of last meal. Glucose of more than 200 mg/dL in a nonstressed, ambulatory subject supports the diagnosis of Diabetes Mellitus. ADA recommended reference range Performed By: #### U HCG, ADDONUAPLUS #### [facility] [address] [place] [address] HCG ( test) IA.rapi d Ql (U)Ordered By: Sarah Childress on 04-02-2023 HCG ( test) Ql (U) Negative [facility] HCG,Urineon 04-02-2023 Beta HCG ( test) Ql (U) Negative Normal [facility] Comment on above: Order Comment: Name Collection Type:: Clean-Voided Midstream Result Comment: PERF ORMED BY: [place] [address] PATHOLOGIST PREDICTIVE MAINTENANCE TECHNICIAN FARNAZ ZULETA M.D. Performed By: #### U HCG, ADDONUAPLUS #### [facility] [address] [place] [address] Hematocrit [Volume Fraction] of Blood by Automated countOrdered By: Sarah Childress on 04-02-2023 Hematocrit (Bld) [Volume fraction] 36.1 % Normal 34.0-46.[address] [facility] Comment on above: Performed By: #### U HCG, ADDONUAPLUS #### [address] Hemoglobin [Mass/volume] in BloodOrdered By: Sarah Childress on 04-02-2023 Hemoglobin (Bld) [Mass/Vol] 11.5 g/dL Low 11.8-15.[address] [facility] Comment on above: Performed By: #### U HCG, ADDONUAPLUS #### [facility] [address] Hypochromia LM Ql (Bld)Order ed By: Sarah Childress on 04-02-2023 Hypochromia Ql (Bld) Slight [facility] Ketones Auto test strip (U) [Mass/Vol]Ordered By: Sarah Childress on 04-02-2023 Ketones (U) [Mass/Vol] Trace Negative [facility] - UrinalysisOrder ed By: Sarah Childress on 04-02-2023 Hyaline casts LM Ql (Urine sed) 0-8 [LPF] 0-[address] [facility] Leukocytes [#/volume] correc flo for nucleated erythrocytes in Blood by Automated counOrdered By: Sarah Childress on 04-02-2023 WBC corrected for nucl RBC Auto (Bld) [#/Vol] 6.8 10*3/uL 3.8-11.[address] [facility] Leukocytes [#/volume] in Blo od by Automated countOrdered By: Sarah Childress on 04-02-2023 WBC (Bld) [#/Vol] 6.8 10*3/uL Normal 3.8-11.6 [facility] Comment on above: Performed By: #### U HCG, ADDONUAPLUS #### [facility] [address] [place] [address] [place] Lymphocytes Auto (Bld) [#/Vo l]Ordered By: Sarah Childress on 04-02-2023 Lymphocytes (Bld) [#/Vol] N/A [facility] Lymphocytes/100 WBC Auto (Bl d)Ordered By: Sarah Childress on 04-02-2023 Lymphocytes/100 WBC (Bld) N/A [facility] Lymphocytes/100 leukocytes i n Blood by Manual countOrdered By: Sarah Childress on 04-02-2023 Lymphocytes/100 WBC (Bld) 43 % High 18-[address] [facility] Comment on above: Performed By: #### U HCG, ADDONUAPLUS #### [facility] [address] [place] [address] [place] MCH [Entitic mass] by Automa flo countOrdered By: Sarah Childress on 04-02-2023 MCH (RBC) [Entitic mass] 24.5 pg Low 24.7-34.[address] [facility] Comment on above: Performed By: #### U HCG, ADDONUAPLUS #### [facility] [address] [place] [address] MCHC Auto (RBC) [Mass/Vol]Or dered By: Sarah Childress on 04-02-2023 MCHC (RBC) [Mass/Vol] 31.8 g/dL 32.0-35.0 [facility] MCV [Entitic volume] by Auto mated countOrdered By: Sarah Childress on 04-02-2023 MCV (RBC) [Entitic vol] 77.3 fL Low 80-100 [facility] Comment on above: Performed By: #### U HCG, ADDONUAPLUS #### [facility] [address] [place] [address] Manual blood segmented neutr ophils/100 leukocytesOrdered By: Sarah Childress on 04-02-2023 Segmented neutrophils/100 WBC (Bld) 47 % Low 50-[address] [facility] Comment on above: Performed By: #### U HCG, ADDONUAPLUS #### [facility] [address] [place] [address] Monocyte distribution width [Entitic volume] in Blood by AutomatedOrdered By: Sarah Childress on 04-02-2023 Monocyte distribution width Auto (Bld) [Entitic vol] 18.83 % 0.00-20.[address] [facility] Monocytes Auto (Bld) [#/Vol] Ordered By: Sarah Childress on 04-02-2023 Monocytes (Bld) [#/Vol] N/A [facility] Monocytes/100 WBC Auto (Bld) Ordered By: Sarah Childress on 04-02-2023 Monocytes/100 WBC (Bld) N/A [facility] Monocytes/100 leukocytes in Blood by Manual countOrdered By: Sarah Childress on 04-02-2023 Monocytes/100 WBC (Bld) 5 % Normal 2-11 [facility] Comment on above: Performed By: #### U HCG, ADDONUAPLUS #### [facility] [address] [place] [address] [facility] Neutrophils Auto (Bld) [#/Vo l]Ordered By: Sarah Childress on 04-02-2023 Neutrophils (Bld) [#/Vol] N/A [facility] Neutrophils/100 WBC Auto (Bl d)Ordered By: Sarah Childress on 04-02-2023 Neutrophils/100 WBC (Bld) N/A [facility] Nitrite Test strip Ql (U)Ord ered By: Sarah Childress on 04-02-2023 Nitrite Ql (U) Negative Negative [facility] No Panel InformationOrdered By: Sarah Childress on 04-02-2023 Estimated GFR (CKD-EPI) > 60.0 mL/Min [facility] Creatinine Clearance (Chem 97.[address] [facility] Nucleated RBC/100 WBC Manual cnt (Bld) [Ratio]Ordered By: Sarah Childress on 04-02-2023 Nucleated RBC/100 WBC (Bld) [Ratio] 3 /100{WBC} 0-[address] [facility] Nucleated erythrocytes [Pres ence] in Blood by Automated countOrdered By: Sarah Childress on 04-02-2023 Nucleated RBC Auto Ql (Bld) N/A [facility] Ovalocyte detectionOrdered B y: Sarah Childress on 04-02-2023 Ovalocytes LM Ql (Bld) [facility] Platelet adequacy [Presence] in Blood by Light microscopyOrdered By: Sarah Childress on 04-02-2023 Platelets LM Ql (Bld) Increased Normal [facility] Platelet mean volume [Entiti c volume] in Blood by Automated countOrdered By: Sarah Childress on 04-02-2023 Platelet mean volume (Bld) [Entitic vol] 8.1 fL Normal 6.3-10.[address] [facility] Comment on above: Result Comment: PERF ORMED BY: [facility] [address] [place] [address] PATHOLOGIST PREDICTIVE MAINTENANCE TECHNICIAN FARNAZ ZULETA M.D. Performed By: #### U HCG, ADDONUAPLUS #### [address] Platelet morphology finding [Identifier] in BloodOrdered By: Sarah Childress on 04-02-2023 Platelet morphology finding Nom (Bld) Normal Normal [facility] Platelets [#/volume] in Bloo d by Automated countOrdered By: Sarah Childress on 04-02-2023 Platelets (Bld) [#/Vol] 492 10*3/uL High 150-[address] [facility] Comment on above: Performed By: #### U HCG, ADDONUAPLUS #### [address] Poikilocytosis [Presence] in Blood by Light microscopyOrdered By: Sarah Childress on 04-02-2023 Poikilocytosis LM Ql (Bld) Slight [facility] Polychromasia [Presence] in Blood by Light microscopyOrdered By: Sarah Childress on 04-02-2023 Polychromasia LM Ql (Bld) Moderate [facility] Potassium [Moles/volume] in Serum or PlasmaOrdered By: Sarah Childress on 04-02-2023 Potassium [Moles/Vol] 3.7 mmol/L Normal 3.5-5.1 [facility] Comment on above: Performed By: #### U HCG, ADDONUAPLUS #### [facility] [address] [place] [address] Protein Auto test strip (U) [Mass/Vol]Ordered By: Sarah Childress on 04-02-2023 Protein (U) [Mass/Vol] Negative Negative [facility] RBC morphologyOrdered By: Carmen Childress on 04-02-2023 RBC morphology finding Nom (Bld) N/A [facility] Serum or plasma anion gap de terminationOrdered By: Sarah Childress on 04-02-2023 Anion gap [Moles/Vol] 14.2 mmol/L Normal 6.0-15.0 [facility] Comment on above: Performed By: #### U HCG, ADDONUAPLUS #### [facility] [address] [place] [address] Smudge cell detectionOrdered By: Sarah Childress on 04-02-2023 Smudge cells LM Ql (Bld) Slight [facility] Sodium [Moles/volume] in Ser um or PlasmaOrdered By: Sarah Childress on 04-02-2023 Sodium [Moles/Vol] 137 mmol/L Normal 136-145 [facility] Comment on above: Performed By: #### U HCG, ADDONUAPLUS #### [facility] [address] [place] [address] Specific gravity Auto test s trip (U) [Rel density]Ordered By: Sarah Childress on 04-02-2023 Specific gravity (U) [Rel density] 1.018 1.001-1.[address] [facility] Squamous epithelial cells de tection in urine sediment by light microscopyOrdered By: Sarah Childress on 04-02-2023 Epithelial cells.squamous LM Ql (Urine sed) 3-4 [HPF] 0-[address] [facility] Toxic leukocyte vacuolation detectionOrdered By: Sarah Childress on 04-02-2023 Leukocyte toxic vacuoles LM Ql (Bld) Slight [facility] Urea nitrogen [Mass/volume] in Serum or PlasmaOrdered By: Sarah Childress on 04-02-2023 Urea nitrogen [Mass/Vol] 9 mg/dL Normal 7-[address] [facility] Comment on above: Performed By: #### U HCG, ADDONUAPLUS #### [facility] [address] [place] [address] Urine bacteria detection by automated methodOrdered By: Sarah Childress on 04-02-2023 Bacteria Auto Ql (U) None seen None Seen [facility] Urine clarity by refractomet ry automatedOrdered By: Sarah Childress on 04-02-2023 Clarity Refractometry automated (U) Clear Clear [facility] Urine glucose measurement by automated test strip (mass/volume)Ordered By: Sarah Childress on 04-02-2023 Glucose Auto test strip (U) [Mass/Vol] Normal mg/dL Normal [facility] Urine hemoglobin detection b y automated test stripOrdered By: Sarah Childress on 04-02-2023 Hemoglobin Auto test strip Ql (U) 3+ Negative [facility] Urine leukocyte esterase det ection by automated test stripOrdered By: Sarah Childress on 04-02-2023 Leukocyte esterase Auto test strip Ql (U) 1+ Negative [facility] Urine pH measurement by auto mated test stripOrdered By: Sarah Childress on 04-02-2023 pH (U) 6.0 [pH] Normal 5.0-9.[address] [facility] Comment on above: Order Comment: Name Collection Type:: Clean-Voided Midstream Performed By: #### U HCG, ADDONUAPLUS #### [address] Urobilinogen Auto test strip (U) [Mass/Vol]Ordered By: Sarah Childress on 04-02-2023 Urobilinogen (U) [Mass/Vol] Normal mg/dL Normal [facility] Alanine aminotransferase [En zymatic activity/volume] in Serum or PlasmaOrdered By: Sarah Childress on 03-29-2023 ALT [Catalytic activity/Vol] 14 U/L Normal 7-[address] [facility] Comment on above: Performed By: #### B MP, LIPASE, HEPATIC #### [place] [address] [place] Albumin [Mass/volume] in Ser um or Plasma by Bromocresol green (BCG) dye binding methoOrdered By: Sarah Childress on 03-29-2023 Albumin BCG dye [Mass/Vol] 4.0 g/dL 3.5-5.[address] [facility] Alkaline phosphatase [Enzyma tic activity/volume] in Serum or PlasmaOrdered By: Sarah Childress on 03-29-2023 ALP [Catalytic activity/Vol] 61 U/L Normal 34-[address] [facility] Comment on above: Performed By: #### B MP, LIPASE, HEPATIC #### [place] [address] [place] Aspartate aminotransferase [ Enzymatic activity/volume] in Serum or PlasmaOrdered By: Sarah Childress on 03-29-2023 AST [Catalytic activity/Vol] 19 U/L Normal 13-[address] [facility] Comment on above: Performed By: #### B MP, LIPASE, HEPATIC #### [facility] [address] [place] [address] Automated basophil %Ordered By: Sarah Arangoarthy on 03-29-2023 Basophils/100 WBC (Bld) 1.3 % Normal . [facility] Comment on above: Performed By: #### U HCG, ADDONUAPLUS #### [address] Automated basophil countOrde red By: Sarah Monroe on 03-29-2023 Basophils (Bld) [#/Vol] 0.1 10*3/uL Normal 0.0-0.[address] [facility] Comment on above: Result Comment: PERF ORMED BY: [place] [address] PATHOLOGIST PREDICTIVE MAINTENANCE TECHNICIAN FARNAZ ZULETA M.D. Performed By: #### U HCG, ADDONUAPLUS #### [address] Automated blood monocyte cou ntOrdered By: Sarah Monroe on 03-29-2023 Monocytes (Bld) [#/Vol] 0.6 10*3/uL Normal 0.0-0.[address] [facility] Comment on above: Performed By: #### U HCG, ADDONUAPLUS #### [address] Automated eosinophil %Ordere d By: Sarah Monroe on 03-29-2023 Eosinophils/100 WBC (Bld) 1.8 % Normal . [facility] Comment on above: Performed By: #### U HCG, ADDONUAPLUS #### [address] Automated eosinophil countOr dered By: Sarah Monroe on 03-29-2023 Eosinophils (Bld) [#/Vol] 0.1 10*3/uL Normal 0.0-0.[address] [facility] Comment on above: Performed By: #### U HCG, ADDONUAPLUS #### [facility] [address] Automated monocyte %Ordered By: Sarah Childress on 03-29-2023 Monocytes/100 WBC (Bld) 7.3 % Normal . [facility] Comment on above: Performed By: #### U HCG, ADDONUAPLUS #### [facility] [address] Automated neutrophil %Ordere d By: Sarah Childress on 03-29-2023 Neutrophils/100 WBC (Bld) 46.8 % Normal . [facility] Comment on above: Performed By: #### U HCG, ADDONUAPLUS #### [address] Automated urine color determ inationOrdered By: Sarah Childress on 03-29-2023 Color (U) Yellow Normal Yellow [facility] Comment on above: Order Comment: Name Collection Type:: Clean-Voided Midstream Performed By: #### H CGQNT #### [address] Basic Metabolic Panelon 03-13 Creatinine Clr Calc Pharmacy 134.47 Normal [facility] Comment on above: Performed By: #### B MP, LIPASE, HEPATIC #### [address] GFR/1.73 sq M.predicted MDRD (S/P/Bld) [Vol rate/Area] mL/min/{1.73_m2} Normal [facility] Comment on above: Performed By: #### B MP, LIPASE, HEPATIC #### [address] Bilirubin Test strip Ql (U)O rdered By: Sarah Childress on 03-29-2023 Bilirubin Ql (U) Negative Negative [facility] Bilirubin.direct [Mass/volum e] in Serum or PlasmaOrdered By: Sarah Childress on 03-29-2023 Bilirubin.direct [Mass/Vol] 0.10 mg/dL 0.03-0.[address] [facility] Bilirubin.total [Mass/volume ] in Serum or PlasmaOrdered By: Sarah Childress on 03-29-2023 Bilirubin [Mass/Vol] 0.3 mg/dL Normal 0.3-1.0 [facility] Comment on above: Performed By: #### B MP, LIPASE, HEPATIC #### [facility] [address] [place] [id number] [facility] CT abdomen pelvis w conon CT abdomen pelvis w con [facility] [address] [place] [address] [place] [address] CT Scan Report Signed Patient: Antonia Noyola MR#: [id number] : 1985 Acct:[id number] Age/Sex: 38 / F ADM Date: 03/29/23 Loc: Room: [address] [place] [address] Type: ADM IN Attending Dr: Christi Aquino MD Copies to: DO Christi Hagan MD Ordering Provider: Sarah Childress DO Date of Service: 03/29/23 CT/CT [...] Alesha Tejada M.D.03/29/2023 7:14 AM Dictation Location: [place] [address] Transcribed By: [facility] 03/29/23713 Dictated By: Alesha Tejada MD 03/29/23709 Signed By: 03/29/23713 Normal [facility] Calcium [Mass/volume] in Ser um or PlasmaOrdered By: Sarah Childress on 03-29-2023 Calcium [Mass/Vol] 8.9 mg/dL Normal 8.6-10.3 [facility] Comment on above: Performed By: #### B MP, LIPASE, HEPATIC #### [address] Carbon dioxide, total [Moles /volume] in Serum or PlasmaOrdered By: Sarah Childress on 03-29-2023 CO2 [Moles/Vol] 22.2 mmol/L Normal 21.0-31.[address] [facility] Comment on above: Performed By: #### B MP, LIPASE, HEPATIC #### [address] Chloride [Moles/volume] in S binu or PlasmaOrdered By: Sarah Childress on 03-29-2023 Chloride [Moles/Vol] 107 mmol/L Normal 98-107 [facility] Comment on above: Performed By: #### B MP, LIPASE, HEPATIC #### [address] Complete Blood Count Auto Di ffon 03-29-2023 Mean Corpuscular HGB Conc 32.0 g/dL Normal 32.0-35.0 [facility] Comment on above: Performed By: #### U HCG, ADDONUAPLUS #### [address] NRBC% 0.1 /100{WBC} Normal 0-0.5 [facility] Comment on above: Performed By: #### U HCG, ADDONUAPLUS #### [address] Creatinine [Mass/volume] in Serum or PlasmaOrdered By: Sarah Monroe on 03-29-2023 Creatinine [Mass/Vol] 0.63 mg/dL Normal 0.60-1.20 [facility] Comment on above: Performed By: #### B MP, LIPASE, HEPATIC #### [address] Erythrocyte distribution wid th [Ratio] by Automated countOrdered By: Sarah Monroe on 03-29-2023 Erythrocyte distribution width (RBC) [Ratio] 15.2 % Normal 11.9-15.[address] [facility] Comment on above: Performed By: #### U HCG, ADDONUAPLUS #### [place] [address] [place] Erythrocytes [#/volume] in B lood by Automated countOrdered By: Sarah Monroe on 03-29-2023 RBC (Bld) [#/Vol] 4.34 10*6/uL Normal 3.60-5.00 [facility] Comment on above: Performed By: #### U HCG, ADDONUAPLUS #### [address] Glucose [Mass/volume] in Ser um or PlasmaOrdered By: Sarah Childress on 03-29-2023 Glucose [Mass/Vol] 90 mg/dL Normal 70-100 [facility] Comment on above: ADA recommended refe rence rangeRandom Glucose Reference Range is dependent on time and content of last meal. Glucose of more than 200 mg/dL in a nonstressed, ambulatory subject supports the diagnosis of Diabetes Mellitus. Result Comment: [place] om Glucose Reference Range is dependent on time and content of last meal. Glucose of more than 200 mg/dL in a nonstressed, ambulatory subject supports the diagnosis of Diabetes Mellitus. ADA recommended reference range Performed By: #### B MP, LIPASE, HEPATIC #### [address] HCG ( test) IA.rapi d Ql (U)Ordered By: Sarah Childress on 03-29-2023 HCG ( test) Ql (U) Negative [facility] HCG,Urineon 03-29-2023 Beta HCG ( test) Ql (U) Negative Normal [facility] Comment on above: Order Comment: Name Collection Type:: Clean-Voided Midstream Result Comment: PERF ORMED BY: [place] [address] PATHOLOGIST PREDICTIVE MAINTENANCE TECHNICIAN FARNAZ ZULETA M.D. Performed By: #### H CGQNT #### [address] Hematocrit [Volume Fraction] of Blood by Automated countOrdered By: Sarah Childress on 03-29-2023 Hematocrit (Bld) [Volume fraction] 32.6 % Low 34.0-46.[address] [facility] Comment on above: Performed By: #### U HCG, ADDONUAPLUS #### [address] Hemoglobin [Mass/volume] in BloodOrdered By: Sarah Childress on 03-29-2023 Hemoglobin (Bld) [Mass/Vol] 10.4 g/dL Low 11.8-15.[address] [facility] Comment on above: Performed By: #### U HCG, ADDONUAPLUS #### [address] Hepatic Panelon 03-29-2023 Albumin [Mass/Vol] 4.0 g/dL Normal 3.5-5.7 [facility] Comment on above: Performed By: #### B MP, LIPASE, HEPATIC #### [address] Bilirubin,Indirect 0.2 mg/dL Normal [facility] Comment on above: Performed By: #### B MP, LIPASE, HEPATIC #### [address] Bilirubin.indirect [Mass/Vol] 0.10 mg/dL Normal 0.03-0.18 [facility] Comment on above: Performed By: #### B MP, LIPASE, HEPATIC #### [facility] [address] [place] [address] Ketones Auto test strip (U) [Mass/Vol]Ordered By: Sarah Childress on 03-29-2023 Ketones (U) [Mass/Vol] Negative Negative [facility] Lactate [Moles/volume] in Se rum or PlasmaOrdered By: Megan Muniz on 03-29-2023 Lactate [Moles/Vol] 0.8 mmol/L Normal 0.5-2.2 [facility] Comment on above: Result Comment: PERF ORMED BY: [place] [address] PATHOLOGIST PREDICTIVE MAINTENANCE TECHNICIAN FARNAZ ZULETA M.D. Performed By: #### H CGQNT #### [address] Leukocytes [#/volume] correc flo for nucleated erythrocytes in Blood by Automated counOrdered By: Sarah Childress on 03-29-2023 WBC corrected for nucl RBC Auto (Bld) [#/Vol] 7.5 10*3/uL 3.8-11.[address] [facility] Leukocytes [#/volume] in Blo od by Automated countOrdered By: Sarah Childress on 03-29-2023 WBC (Bld) [#/Vol] 7.5 10*3/uL Normal 3.8-11.6 [facility] Comment on above: Performed By: #### U HCG, ADDONUAPLUS #### [facility] [address] [place] [address] Lipase [Enzymatic activity/v olume] in Serum or PlasmaOrdered By: Sarah Childress on 03-29-2023 Lipase [Catalytic activity/Vol] 30.0 U/L Normal 11.0-82.[address] [facility] Comment on above: Result Comment: PERF ORMED BY: [place] [address] PATHOLOGIST PREDICTIVE MAINTENANCE TECHNICIAN FARNAZ ZULETA M.D. Performed By: #### B MP, LIPASE, HEPATIC #### [facility] [address] [place] [address] [place] Lymphocytes [#/volume] in Bl ood by Automated countOrdered By: Sarah Childress on 03-29-2023 Lymphocytes (Bld) [#/Vol] 3.2 10*3/uL Normal 1.00-4.[address] [facility] Comment on above: Performed By: #### U HCG, ADDONUAPLUS #### [address] Lymphocytes/100 leukocytes i n Blood by Automated countOrdered By: Sarah Childress on 03-29-2023 Lymphocytes/100 WBC (Bld) 42.8 % Normal . [facility] Comment on above: Performed By: #### U HCG, ADDONUAPLUS #### [address] MCH [Entitic mass] by Automa flo countOrdered By: Sarah Childress on 03-29-2023 MCH (RBC) [Entitic mass] 24.1 pg Low 24.7-34.[address] [facility] Comment on above: Performed By: #### U HCG, ADDONUAPLUS #### [address] MCHC Auto (RBC) [Mass/Vol]Or dered By: Sarah Childress on 03-29-2023 MCHC (RBC) [Mass/Vol] 32.0 g/dL 32.0-35.0 [facility] MCV [Entitic volume] by Auto mated countOrdered By: Sarah Childress on 03-29-2023 MCV (RBC) [Entitic vol] 75.2 fL Low 80-100 [facility] Comment on above: Performed By: #### U HCG, ADDONUAPLUS #### [place] [address] [place] Neutrophils [#/volume] in Bl ood by Automated countOrdered By: Sarah Childress on 03-29-2023 Neutrophils (Bld) [#/Vol] 3.5 10*3/uL Normal 1.8-7.[address] [facility] Comment on above: Performed By: #### U HCG, ADDONUAPLUS #### [facility] [address] Nitrite Test strip Ql (U)Ord ered By: Sarah Childress on 03-29-2023 Nitrite Ql (U) Negative Negative [facility] No Panel InformationOrdered By: Sarah Childress on 03-29-2023 Estimated GFR (CKD-EPI) > 60.0 mL/Min [facility] Creatinine Clearance (Chem 134.[address] [facility] Nucleated erythrocytes [Pres ence] in Blood by Automated countOrdered By: Sarah Childress on 03-29-2023 Nucleated RBC Auto Ql (Bld) 0.1 /100{WBC} 0-0.[address] [facility] Platelet mean volume [Entiti c volume] in Blood by Automated countOrdered By: Sarah Childress on 03-29-2023 Platelet mean volume (Bld) [Entitic vol] 8.0 fL Normal 6.3-10.[address] [facility] Comment on above: Performed By: #### U HCG, ADDONUAPLUS #### [facility] [address] [place] [address] Platelets [#/volume] in Bloo d by Automated countOrdered By: Sarah Childress on 03-29-2023 Platelets (Bld) [#/Vol] 396 10*3/uL Normal 150-[address] [facility] Comment on above: Performed By: #### U HCG, ADDONUAPLUS #### [facility] [address] [place] [address] Potassium [Moles/volume] in Serum or PlasmaOrdered By: Sarah Childress on 03-29-2023 Potassium [Moles/Vol] 3.6 mmol/L Normal 3.5-5.1 [facility] Comment on above: Performed By: #### B MP, LIPASE, HEPATIC #### [facility] [address] [place] [address] Protein Auto test strip (U) [Mass/Vol]Ordered By: Sarah Childress on 03-29-2023 Protein (U) [Mass/Vol] Negative Negative [facility] Protein [Mass/volume] in Ser um or PlasmaOrdered By: Sarah Childress on 03-29-2023 Protein [Mass/Vol] 6.8 g/dL Normal 6.4-8.9 [facility] Comment on above: Performed By: #### B MP, LIPASE, HEPATIC #### [address] Serum globulin measurement b y calculation (mass/volume)Ordered By: Sarah Childress on 03-29-2023 Globulin (S) [Mass/Vol] 2.8 g/dL Normal [facility] Comment on above: Performed By: #### B MP, LIPASE, HEPATIC #### [address] Serum or plasma albumin/glob ulin mass ratioOrdered By: Sarah Childress on 03-29-2023 Albumin/Globulin [Mass ratio] 1.4 {ratio} Normal [facility] Comment on above: Performed By: #### B MP, LIPASE, HEPATIC #### [address] Serum or plasma anion gap de terminationOrdered By: Sarah Childress on 03-29-2023 Anion gap [Moles/Vol] 12.4 mmol/L Normal 6.0-15.0 [facility] Comment on above: Performed By: #### B MP, LIPASE, HEPATIC #### [address] Serum or plasma non-glucuron idated bilirubin measurement (mass/volume)Ordered By: Sarah Childress on 03-29-2023 Bilirubin.indirect [Mass/Vol] 0.2 mg/dL [facility] Sodium [Moles/volume] in Ser um or PlasmaOrdered By: Sarah Childress on 03-29-2023 Sodium [Moles/Vol] 138 mmol/L Normal 136-145 [facility] Comment on above: Performed By: #### B MP, LIPASE, HEPATIC #### [facility] [address] [place] [id number] [facility] Specific gravity Auto test s trip (U) [Rel density]Ordered By: Sarah Childress on 03-29-2023 Specific gravity (U) [Rel density] 1.003 1.001-1.[address] [facility] US transvaginalon 03-29-2023 US transvaginal [facility] Main [place] [address] [place] [id number] Ultrasound Report Signed Patient: Antonia Noyola MR#: [id number] 757 : 1985 Acct:[id number] Age/Sex: 38 / F ADM Date: 03/29/23 Loc: Room: [address] [place] [address] Type: ADM IN Attending Dr: Christi Aquino MD Ordering Provider: Sarah Childress DO Date of Service: 03/29/23 US/US transvaginal: r/o L ovarian torsion ([id number]) US/US pelvic complete: PAIN Copies to: DO [...] Davi Figueroa M.D.03/29/2023 8:20 AM Dictation Location: [place] [address] Tech: Brooke Naveen Transcribed By: AMBER 03/29/23819 Dictated By: Davi Figueroa DO 03/29/23815 Signed By: 03/29/23819 Normal [facility] Urea nitrogen [Mass/volume] in Serum or PlasmaOrdered By: Sarah Childress on 03-29-2023 Urea nitrogen [Mass/Vol] 6 mg/dL Low 7-[address] [facility] Comment on above: Performed By: #### B MP, LIPASE, HEPATIC #### [facility] [address] [place] [address] [place] Urinalysison 03-29-2023 Appearance (U) Clear Normal Clear [facility] Comment on above: Order Comment: Name Collection Type:: Clean-Voided Midstream Performed By: #### H CGQNT #### [address] Bilirubin,Urine Negative Normal Negative [facility] Comment on above: Order Comment: Name Collection Type:: Clean-Voided Midstream Performed By: #### H CGQNT #### [address] Glucose Ql (U) Normal Normal Normal [facility] Comment on above: Order Comment: Name Collection Type:: Clean-Voided Midstream Performed By: #### H CGQNT #### [address] Ketones Ql (U) Negative Normal Negative [facility] Comment on above: Order Comment: Name Collection Type:: Clean-Voided Midstream Performed By: #### H CGQNT #### [address] Leukocyte esterase Test strip Ql (U) Negative Normal Negative [facility] Comment on above: Order Comment: Name Collection Type:: Clean-Voided Midstream Performed By: #### H CGQNT #### [place] [address] [place] Nitrite,Urine Negative Normal Negative [facility] Comment on above: Order Comment: Name Collection Type:: Clean-Voided Midstream Performed By: #### H CGQNT #### [place] [address] [place] Occult Blood,Urine Negative Normal Negative [facility] Comment on above: Order Comment: Name Collection Type:: Clean-Voided Midstream Performed By: #### H CGQNT #### [address] Protein,Urine Negative Normal Negative [facility] Comment on above: Order Comment: Name Collection Type:: Clean-Voided Midstream Performed By: #### H CGQNT #### [address] Specificy [place],Urine 1.003 Normal 1.001-1.030 [facility] Comment on above: Order Comment: Name Collection Type:: Clean-Voided Midstream Performed By: #### H CGQNT #### [address] Urobilinogen,Urine Normal Normal Normal [facility] Comment on above: Order Comment: Name Collection Type:: Clean-Voided Midstream Performed By: #### H CGQNT #### [address] Urine clarity by refractomet ry automatedOrdered By: Sarah Childress on 03-29-2023 Clarity Refractometry automated (U) Clear Clear [facility] Urine glucose measurement by automated test strip (mass/volume)Ordered By: Sarah Childress on 03-29-2023 Glucose Auto test strip (U) [Mass/Vol] Normal mg/dL Normal [facility] Urine hemoglobin detection b y automated test stripOrdered By: Sarah Childress on 03-29-2023 Hemoglobin Auto test strip Ql (U) Negative Negative [facility] Urine leukocyte esterase det ection by automated test stripOrdered By: Sarah Childress on 03-29-2023 Leukocyte esterase Auto test strip Ql (U) Negative Negative [facility] Urine pH measurement by auto mated test stripOrdered By: Sarah Childress on 03-29-2023 pH (U) 7.5 [pH] Normal 5.0-9.[address] [facility] Comment on above: Order Comment: Name Collection Type:: Clean-Voided Midstream Performed By: #### H CGQNT #### [place] [id number] [place] Urobilinogen Auto test strip (U) [Mass/Vol]Ordered By: Sarah Childress on 03-29-2023 Urobilinogen (U) [Mass/Vol] Normal mg/dL Normal [facility] Automated urine color determ inationOrdered By: Elier Jackson on 02-06-2023 Color (U) Yellow Normal Yellow [facility] Comment on above: Order Comment: Name Collection Type:: Clean-Voided Midstream Performed By: #### U A, CG #### [facility] [address] Bilirubin Test strip Ql (U)O rdered By: Elier Jackson on 02-06-2023 Bilirubin Ql (U) Negative Negative [facility] CT abdomen pelvis w conon CT abdomen pelvis w con [facility] Main [place] [address] [place] [address] CT Scan Report Signed Patient: Antonia Noyola MR#: [id number] 757 : 1985 Acct:[id number] Age/Sex: 38 / F ADM Date: 02/05/23 Loc: ER Room: Type: [facility] ER Attending Dr: Copies to: [...] Betancur Jr., D.OEbenezer02/06/2023 11:23 AM Dictation Location: [place] [address] Transcribed By: [facility] 02/06/23 1123 Dictated By: Dennis Betancur Jr, DO 02/06/23 1109 Signed By: 02/06/23 1123 Normal [facility] HCG ( test) IA.rapi d Ql (U)Ordered By: Elier Jackson on 02-06-2023 HCG ( test) Ql (U) Negative [facility] HCG,Urineon 02-06-2023 Beta HCG ( test) Ql (U) Negative Normal [facility] Comment on above: Order Comment: Name Collection Type:: Clean-Voided Midstream Result Comment: PERF ORMED BY: [place] [address] PATHOLOGIST PREDICTIVE MAINTENANCE TECHNICIAN FARNAZ ZULETA M.D. Performed By: #### U A, [facility] #### [address] Ketones Auto test strip (U) [Mass/Vol]Ordered By: Elier Jackson on 02-06-2023 Ketones (U) [Mass/Vol] Negative Negative [facility] Nitrite Test strip Ql (U)Ord ered By: Elier Jackson on 02-06-2023 Nitrite Ql (U) Negative Negative [facility] Protein Auto test strip (U) [Mass/Vol]Ordered By: Elier Jackson on 02-06-2023 Protein (U) [Mass/Vol] Negative Negative Fi [facility] Specific gravity Auto test s trip (U) [Rel density]Ordered By: Elier Jackson on 02-06-2023 Specific gravity (U) [Rel density] 1.007 1.001-1.[address] [facility] US pelvic completeon 023 US pelvic complete [facility] Main [place] [address] [place] [address] Ultrasound Report Signed Patient: Antonia Noyola MR#: [id number] 757 : 1985 Acct:[id number] Age/Sex: 38 / F ADM Date: 02/05/23 Loc: ER Room: Type: [facility] ER Attending Dr: Ordering Provider: Elier Jackson DO Date of Service: 02/06/23 US/US pelvic complete: adnexa pain ([id number]) US/US transvaginal: . Copies to: Elier Jackson [...] Betancur Jr., D.O.02/06/2023 11:25 AM Dictation Location: [place] [address] Tech: Jada Webb Transcribed By: [facility] 02/06/23 1125 Dictated By: Dennis Betancur Jr, DO 02/06/23 1123 Signed By: 02/06/23 1125 Normal [facility] Urinalysison 02-06-2023 Appearance (U) Clear Normal Clear [facility] Comment on above: Order Comment: Name Collection Type:: Clean-Voided Midstream Performed By: #### U A UHCG #### [facility] [address] Bilirubin,Urine Negative Normal Negative [facility] Comment on above: Order Comment: Name Collection Type:: Clean-Voided Midstream Performed By: #### U A UHCG #### [facility] [address] [place] [address] Glucose Ql (U) Normal Normal Normal [facility] Comment on above: Order Comment: Name Collection Type:: Clean-Voided Midstream Performed By: #### U A, UHCG #### [address] Ketones Ql (U) Negative Normal Negative [facility] Comment on above: Order Comment: Name Collection Type:: Clean-Voided Midstream Performed By: #### U A, UHCG #### [address] Leukocyte esterase Test strip Ql (U) Negative Normal Negative [facility] Comment on above: Order Comment: Name Collection Type:: Clean-Voided Midstream Performed By: #### U A, UHCG #### [address] Nitrite,Urine Negative Normal Negative [facility] Comment on above: Order Comment: Name Collection Type:: Clean-Voided Midstream Performed By: #### U A, UHCG #### [place] [address] [place] Occult Blood,Urine Negative Normal Negative [facility] Comment on above: Order Comment: Name Collection Type:: Clean-Voided Midstream Performed By: #### U A, UHCG #### [place] [address] [place] Protein,Urine Negative Normal Negative [facility] Comment on above: Order Comment: Name Collection Type:: Clean-Voided Midstream Performed By: #### U A, UHCG #### [place] [address] [place] Specificy [place],Urine 1.007 Normal 1.001-1.030 [facility] Comment on above: Order Comment: Name Collection Type:: Clean-Voided Midstream Performed By: #### U A, UHCG #### [address] Urobilinogen,Urine Normal Normal Normal [facility] Comment on above: Order Comment: Name Collection Type:: Clean-Voided Midstream Performed By: #### U A UHCG #### [facility] [address] Urine clarity by refractomet ry automatedOrdered By: Elier Jackson on 02-06-2023 Clarity Refractometry automated (U) Clear Clear [facility] Urine glucose measurement by automated test strip (mass/volume)Ordered By: Elier Jackson on 02-06-2023 Glucose Auto test strip (U) [Mass/Vol] Normal mg/dL Normal [facility] Urine hemoglobin detection b y automated test stripOrdered By: Elier Jackson on 02-06-2023 Hemoglobin Auto test strip Ql (U) Negative Negative [facility] Urine leukocyte esterase det ection by automated test stripOrdered By: Elier Jackson on 02-06-2023 Leukocyte esterase Auto test strip Ql (U) Negative Negative [facility] Urine pH measurement by auto mated test stripOrdered By: Elier Jackson on 02-06-2023 pH (U) 7.0 [pH] Normal 5.0-9.[address] [facility] Comment on above: Order Comment: Name Collection Type:: Clean-Voided Midstream Performed By: #### U A CG #### [facility] [address] [place] [address] Urobilinogen Auto test strip (U) [Mass/Vol]Ordered By: Elier Jackson on 02-06-2023 Urobilinogen (U) [Mass/Vol] Normal mg/dL Normal [facility] Alanine aminotransferase [En zymatic activity/volume] in Serum or PlasmaOrdered By: Elier Jackson on 02-05-2023 ALT [Catalytic activity/Vol] 13 U/L Normal 7-[address] [facility] Comment on above: Performed By: #### H CGQNT #### [facility] [address] [place] [address] [place] Albumin [Mass/volume] in Ser um or Plasma by Bromocresol green (BCG) dye binding methoOrdered By: Elier Jackson on 02-05-2023 Albumin BCG dye [Mass/Vol] 4.2 g/dL 3.5-5.[address] [facility] Alkaline phosphatase [Enzyma tic activity/volume] in Serum or PlasmaOrdered By: Elier Jackson on 02-05-2023 ALP [Catalytic activity/Vol] 52 U/L Normal 34-[address] [facility] Comment on above: Performed By: #### H CGQNT #### [address] Aspartate aminotransferase [ Enzymatic activity/volume] in Serum or PlasmaOrdered By: Elier Jackson on 02-05-2023 AST [Catalytic activity/Vol] 12 U/L Low 13-[address] [facility] Comment on above: Performed By: #### H CGQNT #### [address] Automated basophil %Ordered By: Elier Jackson on 02-05-2023 Basophils/100 WBC (Bld) 1.4 % Normal . [facility] Comment on above: Performed By: #### H EPATIC, LIPASE, BMP, CBC #### [address] Automated basophil countOrde red By: Elier Jackson on 02-05-2023 Basophils (Bld) [#/Vol] 0.1 10*3/uL Normal 0.0-0.[address] [facility] Comment on above: Result Comment: PERF ORMED BY: [place] [address] PATHOLOGIST PREDICTIVE MAINTENANCE TECHNICIAN FARNAZ ZULETA M.D. Performed By: #### H EPATIC, LIPASE, BMP, CBC #### [address] Automated blood monocyte cou ntOrdered By: Elier Jackson on 02-05-2023 Monocytes (Bld) [#/Vol] 0.7 10*3/uL Normal 0.0-0.[address] [facility] Comment on above: Performed By: #### H EPATIC, LIPASE, BMP, CBC #### [address] Automated eosinophil %Ordere d By: Elier Jackson on 02-05-2023 Eosinophils/100 WBC (Bld) 1.5 % Normal . [facility] Comment on above: Performed By: #### H EPATIC, LIPASE, BMP, CBC #### [address] Automated eosinophil countOr dered By: Elier Jackson on 02-05-2023 Eosinophils (Bld) [#/Vol] 0.1 10*3/uL Normal 0.0-0.[address] [facility] Comment on above: Performed By: #### H EPATIC, LIPASE, BMP, CBC #### [address] Automated monocyte %Ordered By: Elier Jackson on 02-05-2023 Monocytes/100 WBC (Bld) 8.4 % Normal . [facility] Comment on above: Performed By: #### H EPATIC, LIPASE, BMP, CBC #### [address] Automated neutrophil %Ordere d By: Elier Jackson on 02-05-2023 Neutrophils/100 WBC (Bld) 44.4 % Normal . [facility] Comment on above: Performed By: #### H EPATIC, LIPASE, BMP, CBC #### [address] Basic Metabolic Panelon 01-12 Creatinine Clr Calc Pharmacy 115.62 Normal [facility] Comment on above: Performed By: #### H CGQNT #### [address] GFR/1.73 sq M.predicted MDRD (S/P/Bld) [Vol rate/Area] mL/min/{1.73_m2} Normal [facility] Comment on above: Performed By: #### H CGQNT #### [address] Bilirubin.direct [Mass/volum e] in Serum or PlasmaOrdered By: Elier Jackson on 02-05-2023 Bilirubin.direct [Mass/Vol] 0.10 mg/dL 0.03-0.[address] [facility] Bilirubin.total [Mass/volume ] in Serum or PlasmaOrdered By: Elier Jackson on 02-05-2023 Bilirubin [Mass/Vol] 0.3 mg/dL Normal 0.3-1.0 [facility] Comment on above: Performed By: #### H CGQNT #### [facility] [address] [place] [address] [place] Calcium [Mass/volume] in Ser um or PlasmaOrdered By: Elier Jackson on 02-05-2023 Calcium [Mass/Vol] 9.2 mg/dL Normal 8.6-10.3 [facility] Comment on above: Performed By: #### H CGQNT #### [facility] [address] [place] [address] [place] Carbon dioxide, total [Moles /volume] in Serum or PlasmaOrdered By: Elier Jackson on 02-05-2023 CO2 [Moles/Vol] 21.5 mmol/L Normal 21.0-31.[address] [facility] Comment on above: Performed By: #### H CGQNT #### [facility] [address] [place] [address] [place] Chloride [Moles/volume] in S binu or PlasmaOrdered By: Elier Jackson on 02-05-2023 Chloride [Moles/Vol] 107 mmol/L Normal 98-107 [facility] Comment on above: Performed By: #### H CGQNT #### [facility] [address] [place] [address] [place] Choriogonadotropin.beta subu nit [Units/volume] in Serum or PlasmaOrdered By: Elier Jackson on 02-05-2023 HCG.beta subunit Qn m[IU]/mL [facility] Comment on above: Approximate Approxim ate hCG Gestational Age Range (mIU/ml) (weeks)0.2-1 5-50 1-2 50-500 2-3 100-5,000 3-4 500-10,000 4-5 1,000-50,000 5-6 10,000-100,000 6-8 15,000-200,000 8-12 10,000-100,000 HCG.beta subunit Qn Negative [facility] Complete Blood Count Auto Di ffon 02-05-2023 Mean Corpuscular HGB Conc 31.8 g/dL Low 32.0-35.0 [facility] Comment on above: Performed By: #### H EPATIC, LIPASE, BMP, CBC #### [address] Monocytes/100 WBC (Bld) 17.33 % Normal 0.00-20.00 T ryder [facility] Comment on above: Performed By: #### H EPATIC, LIPASE, BMP, CBC #### [address] NRBC% 0.1 /100{WBC} Normal 0-0.5 [facility] Comment on above: Performed By: #### H EPATIC, LIPASE, BMP, CBC #### [address] Creatinine [Mass/volume] in Serum or PlasmaOrdered By: Elier Jackson on 02-05-2023 Creatinine [Mass/Vol] 0.71 mg/dL Normal 0.60-1.20 [facility] Comment on above: Performed By: #### H CGQNT #### [address] Erythrocyte distribution wid th [Ratio] by Automated countOrdered By: Elier Jackson on 02-05-2023 Erythrocyte distribution width (RBC) [Ratio] 15.9 % High 11.9-15.[address] [facility] Comment on above: Performed By: #### H EPATIC, LIPASE, BMP, CBC #### [address] Erythrocytes [#/volume] in B lood by Automated countOrdered By: Elier Jackson on 02-05-2023 RBC (Bld) [#/Vol] 4.78 10*6/uL Normal 3.60-5.00 [facility] Comment on above: Performed By: #### H EPATIC, LIPASE, BMP, CBC #### [place] [address] [place] Glucose [Mass/volume] in Ser um or [...] the diagnosis of Diabetes Mellitus. Result Comment: [place] om Glucose Reference Range is dependent on time and content of last meal. Glucose of more than 200 mg/dL in a nonstressed, ambulatory subject supports the diagnosis of Diabetes Mellitus. ADA recommended reference range Performed By: #### H CGQNT #### [address] HCG,Qualitative Serumon 01-12 HCG,Qualitative Serum Negative Normal [facility] Comment on above: Result Comment: PERF ORMED BY: [place] [address] PATHOLOGIST PREDICTIVE MAINTENANCE TECHNICIAN FARNAZ ZULETA M.D. Performed By: #### U HCG, ADDONUAPLUS #### [address] HCG,Quantitativeon 3 HCG,Quantitative < 0.60 Normal [facility] Comment on above: Result Comment: Appr oximate Approximate hCG Gestational Age Range (mIU/ml) (weeks) 0.2-1 5-50 1-2 50-500 2-3 100-5,000 3-4 500-10,000 4-5 1,000-50,000 5-6 10,000-100,000 6-8 15,000-200,000 8-12 10,000-100,000 PERFORMED BY: [place] [address] PATHOLOGIST PREDICTIVE MAINTENANCE TECHNICIAN FARNAZ ZULETA M.D. Performed By: #### H CGQNT #### [place] [id number] [facility] Hematocrit [Volume Fraction] of Blood by Automated countOrdered By: Elier Jackson on 02-05-2023 Hematocrit (Bld) [Volume fraction] 37.3 % Normal 34.0-46.[address] [facility] Comment on above: Performed By: #### H EPATIC, LIPASE, BMP, CBC #### [facility] [address] Hemoglobin [Mass/volume] in BloodOrdered By: Elier Jackson on 02-05-2023 Hemoglobin (Bld) [Mass/Vol] 11.8 g/dL Normal 11.8-15.[address] [facility] Comment on above: Performed By: #### H EPATIC, LIPASE, BMP, CBC #### [facility] [address] Hepatic Panelon 02-05-2023 Albumin [Mass/Vol] 4.2 g/dL Normal 3.5-5.7 [facility] Comment on above: Performed By: #### H CGQNT #### [address] Bilirubin,Indirect 0.2 mg/dL Normal [facility] Comment on above: Performed By: #### H CGQNT #### [address] Bilirubin.indirect [Mass/Vol] 0.10 mg/dL Normal 0.03-0.18 [facility] Comment on above: Performed By: #### H CGQNT #### [address] Leukocytes [#/volume] correc flo for nucleated erythrocytes in Blood by Automated counOrdered By: Elier Jackson on 02-05-2023 WBC corrected for nucl RBC Auto (Bld) [#/Vol] 8.1 10*3/uL 3.8-11.[address] [facility] Leukocytes [#/volume] in Blo od by Automated countOrdered By: Elier Jackson on 02-05-2023 WBC (Bld) [#/Vol] 8.1 10*3/uL Normal 3.8-11.6 [facility] Comment on above: Performed By: #### H EPATIC, LIPASE, BMP, CBC #### [facility] [address] [place] [address] Lipase [Enzymatic activity/v olume] in Serum or PlasmaOrdered By: Elier Jackson on 02-05-2023 Lipase [Catalytic activity/Vol] 40.0 U/L Normal 11.0-82.[address] [facility] Comment on above: Result Comment: PERF ORMED BY: [place] [address] PATHOLOGIST PREDICTIVE MAINTENANCE TECHNICIAN FARNAZ ZULETA M.D. Performed By: #### H CGQNT #### [facility] [address] [place] [address] Lymphocytes [#/volume] in Bl ood by Automated countOrdered By: Elier Jackson on 02-05-2023 Lymphocytes (Bld) [#/Vol] 3.6 10*3/uL Normal 1.00-4.[address] [facility] Comment on above: Performed By: #### H EPATIC, LIPASE, BMP, CBC #### [facility] [address] [place] [address] Lymphocytes/100 leukocytes i n Blood by Automated countOrdered By: Elier Jackson on 02-05-2023 Lymphocytes/100 WBC (Bld) 44.3 % Normal . [facility] Comment on above: Performed By: #### H EPATIC, LIPASE, BMP, CBC #### [facility] [address] [place] [address] MCH [Entitic mass] by Automa flo countOrdered By: Elier Jackson on 02-05-2023 MCH (RBC) [Entitic mass] 24.8 pg Normal 24.7-34.[address] [facility] Comment on above: Performed By: #### H EPATIC, LIPASE, BMP, CBC #### [facility] [address] [place] [address] [place] MCHC Auto (RBC) [Mass/Vol]Or dered By: Elier Jackson on 02-05-2023 MCHC (RBC) [Mass/Vol] 31.8 g/dL 32.0-35.0 [facility] MCV [Entitic volume] by Auto mated countOrdered By: Elier Jackson on 02-05-2023 MCV (RBC) [Entitic vol] 78.1 fL Low 80-100 [facility] Comment on above: Performed By: #### H EPATIC, LIPASE, BMP, CBC #### [facility] [address] Monocyte distribution width [Entitic volume] in Blood by AutomatedOrdered By: Elier Jackson on 02-05-2023 Monocyte distribution width Auto (Bld) [Entitic vol] 17.33 % 0.00-20.[address] [facility] Neutrophils [#/volume] in Bl ood by Automated countOrdered By: Elier Jackson on 02-05-2023 Neutrophils (Bld) [#/Vol] 3.6 10*3/uL Normal 1.8-7.[address] [facility] Comment on above: Performed By: #### H EPATIC, LIPASE, BMP, CBC #### [facility] [address] [place] [address] No Panel InformationOrdered By: Elier Jackson on 02-05-2023 Estimated GFR (CKD-EPI) > 60.0 mL/Min [facility] Creatinine Clearance (Chem 115.[address] [facility] Nucleated erythrocytes [Pres ence] in Blood by Automated countOrdered By: Elier Jackson on 02-05-2023 Nucleated RBC Auto Ql (Bld) 0.1 /100{WBC} 0-0.[address] [facility] Platelet mean volume [Entiti c volume] in Blood by Automated countOrdered By: Elier Jackson on 02-05-2023 Platelet mean volume (Bld) [Entitic vol] 8.0 fL Normal 6.3-10.[address] [facility] Comment on above: Performed By: #### H EPATIC, LIPASE, BMP, CBC #### [facility] [address] [place] [address] [place] Platelets [#/volume] in Bloo d by Automated countOrdered By: Elier Jackson on 02-05-2023 Platelets (Bld) [#/Vol] 398 10*3/uL Normal 150-[address] [facility] Comment on above: Performed By: #### H EPATIC, LIPASE, BMP, CBC #### [facility] [address] [place] [address] Potassium [Moles/volume] in Serum or PlasmaOrdered By: Elier Jackson on 02-05-2023 Potassium [Moles/Vol] 3.4 mmol/L Low 3.5-5.1 [facility] Comment on above: Performed By: #### H CGQNT #### [address] Protein [Mass/volume] in Ser um or PlasmaOrdered By: Elier Jackson on 02-05-2023 Protein [Mass/Vol] 7.2 g/dL Normal 6.4-8.9 [facility] Comment on above: Performed By: #### H CGQNT #### [address] Serum globulin measurement b y calculation (mass/volume)Ordered By: Elier Jackson on 02-05-2023 Globulin (S) [Mass/Vol] 3.0 g/dL Normal [facility] Comment on above: Performed By: #### H CGQNT #### [address] Serum or plasma albumin/glob ulin mass ratioOrdered By: Elier Jackson on 02-05-2023 Albumin/Globulin [Mass ratio] 1.4 {ratio} Normal [facility] Comment on above: Performed By: #### H CGQNT #### [facility] [address] [place] [address] Serum or plasma anion gap de terminationOrdered By: Elier Jackson on 02-05-2023 Anion gap [Moles/Vol] 11.9 mmol/L Normal 6.0-15.0 [facility] Comment on above: Performed By: #### H CGQNT #### [facility] [address] [place] [address] Serum or plasma non-glucuron idated bilirubin measurement (mass/volume)Ordered By: Elier Jackson on 02-05-2023 Bilirubin.indirect [Mass/Vol] 0.2 mg/dL [facility] Sodium [Moles/volume] in Ser um or PlasmaOrdered By: Elier Jackson on 02-05-2023 Sodium [Moles/Vol] 137 mmol/L Normal 136-145 [facility] Comment on above: Performed By: #### H CGQNT #### [facility] [address] [id number] [facility] Urea nitrogen [Mass/volume] in Serum or PlasmaOrdered By: Elier Velásquezarleen on 02-05-2023 Urea nitrogen [Mass/Vol] 6 mg/dL Low 7-[address] [facility] Comment on above: Performed By: #### H CGQNT #### [facility] [address] [id number] [facility] GENITAL CULTUREon 08-01-2022 Genital Culture, Routine Final report Abnormal [facility] Comment on above: Result Comment: Spec imen stability note: A swab transport (ie., ESwab, Amies agar gel) received by the lab more than 24 hours after collection may result in reduced recovery of Neisseria gonorrhoeae (GC). (This is informational only and may not apply to this specimen.) Performed By: #### C XGENIT #### [facility] [address] [address] [address] Rod Ramirez Result 1 Comment Abnormal [facility] Comment on above: Result Comment: Beta [...] (CLSI) Performed By: #### C XGENIT #### [facility] [address] [address] [address] Rod Ramirez Result [address] [facility] Comment on above: Result Comment: Rout ine genital rashid. Light growth Performed By: #### C XGENIT #### [facility] [address] [address] [address] Rod Ramirez CBC AUTO DIFFon 07-28-2022 BASO # 0.0 103/ul Normal 0.0-0.1 [facility] Comment on above: Performed By: #### C BC #### [facility] [address] [address] [address] Rod Rmairez Basophils/100 WBC (Bld) 0.4 % Normal 0.2-2.0 [facility] Comment on above: Performed By: #### C BC #### [facility] [address] [place] [address] Dr. Rod Ramirez EO # 0.1 103/ul Normal 0.0-0.7 [facility] Comment on above: Performed By: #### C BC #### [facility] [address] [place] [address] Dr. Rod Ramirez Eosinophils/100 WBC (Bld) 1.5 % Normal 0.9-7.0 [facility] Comment on above: Performed By: #### C BC #### [facility] [address] [place] [address] Dr. Rod Ramirez Erythrocyte distribution width (RBC) [Ratio] 12.9 % Normal 11.0-15.0 [facility] Comment on above: Performed By: #### C BC #### [facility] [address] [place] [address] Dr. Rod Ramirez Hematocrit (Bld) [Volume fraction] 40.9 % Normal 36.0-48.0 [facility] Comment on above: Performed By: #### C BC #### [facility] [address] [place] [address] Dr. Rod Ramirez Hemoglobin (Bld) [Mass/Vol] 13.7 g/dL Normal 12.0-16.0 [facility] Comment on above: Performed By: #### C BC #### [facility] [address] [place] [address] Dr. Rod Ramirez IG # 0.02 10e3/ul Normal 0.00-0.03 [facility] Comment on above: Performed By: #### C BC #### [facility] [address] [place] [address] Dr. Rod Ramirez IG % 0.3 % Normal 0.0-0.5 [facility] Comment on above: Performed By: #### C BC #### [facility] [address] [place] [address] Dr. Rod Ramirez LYMPH # 1.6 103/ul Normal 1.2-3.8 [facility] Comment on above: Performed By: #### C BC #### [facility] [address] [place] [address] Dr. Rod Ramirez Lymphocytes/100 WBC (Bld) 23.6 % Normal 20.5-60.0 [facility] Comment on above: Performed By: #### C BC #### [facility] [address] [place] [address] Dr. Rod Ramirez MANUAL DIFF REQ NO Normal [facility] Comment on above: Performed By: #### C BC #### [facility] [address] [place] [address] Dr. Rod Ramirez MCH (RBC) [Entitic mass] 27.7 pg Normal 26.7-34.0 [facility] Comment on above: Performed By: #### C BC #### [facility] [address] [place] [address] Dr. Rod Ramirez MCHC (RBC) [Mass/Vol] 33.5 g/dL Normal 29.9-35.2 [facility] Comment on above: Performed By: #### C BC #### [facility] [address] [place] [address] Dr. Rod Ramirez MCV (RBC) [Entitic vol] 82.6 fL Normal 81.0-99.0 [facility] Comment on above: Performed By: #### C BC #### [facility] [address] [place] [address] Dr. Rod Ramirez MONO # 0.4 103/ul Normal 0.3-0.8 [facility] Comment on above: Performed By: #### C BC #### [facility] [address] [place] [address] Dr. Rod Ramirez Monocytes/100 WBC (Bld) 6.4 % Normal 1.7-12.0 [facility] Comment on above: Performed By: #### C BC #### [facility] [address] [place] [address] Dr. Rod Ramirez NEUT # 4.6 103/ul Normal 1.4-6.5 [facility] Comment on above: Performed By: #### C BC #### [facility] [address] [place] [address] Dr. Rod Ramirez Neutrophils/100 WBC (Bld) 67.8 % Normal 43.0-75.0 [facility] Comment on above: Performed By: #### C BC #### [facility] [address] [place] [address] Dr. Rod Ramirez Platelet mean volume (Bld) [Entitic vol] 9.4 fL Critically low 9.5-13.5 [facility] Comment on above: Performed By: #### C BC #### [facility] [address] [place] [address] Dr. Rod Ramirez PLT 439 103/ul Normal 150-450 [facility] Comment on above: Performed By: #### C BC #### [facility] [address] [place] [address] Dr. Rod Ramirez RBC 4.95 106/ul Normal 4.20-5.40 [facility] Comment on above: Performed By: #### C BC #### [facility] [address] [place] [address] Dr. Rod Ramirez WBC 6.7 103/ul Normal 4.0-11.0 [facility] Comment on above: Performed By: #### C BC #### [facility] [address] [place] [address] Dr. Rod Ramirez PREG HCG QUALon 07-28-2022 , QUAL Negative Normal NEGATIVE [facility] Comment on above: Performed By: #### P REG #### [facility] [address] [place] [address] Dr. Rod Ramirez PROF CHEM 8 (BAS METB)on Anion gap [Moles/Vol] 15.5 mmol/L Normal [facility] Comment on above: Performed By: #### B MP #### [facility] [address] [address] [address] Rod Ramirez Calcium [Mass/Vol] 9.0 mg/dL Normal 8.5-10.1 [facility] Comment on above: Performed By: #### B MP #### [facility] [address] [address] [address] Rod Ramirez Chloride [Moles/Vol] 103 mmol/L Normal 98-107 [facility] Comment on above: Performed By: #### B MP #### [facility] [address] [address] [address] Rod Ramirez CO2 [Moles/Vol] 23.9 mmol/L Normal 21.0-32.0 [facility] Comment on above: Performed By: #### B MP #### [facility] [address] [address] [address] Rod Ramirez Creatinine [Mass/Vol] 0.79 mg/dL Normal 0.55-1.02 [facility] Comment on above: Performed By: #### B MP #### [facility] [address] [address] [address] Rod Ramirez EGFR-AF ALGERIAN >60 Normal >=60 [facility] Comment on above: Performed By: #### B MP #### [facility] [address] [address] [address] Rod Ramirez EGFR-NON AF ALGERIAN >60 Normal >=60 [facility] Comment on above: Performed By: #### B MP #### [facility] [address] [address] [address] Rod Ramirez Glucose [Mass/Vol] 108 mg/dL Critically high 74-106 [facility] Comment on above: Performed By: #### B MP #### [facility] [address] [address] [address] Rod Ramirez Potassium [Moles/Vol] 3.4 mmol/L Critically low 3.5-5.1 [facility] Comment on above: Performed By: #### B MP #### [facility] [address] [address] [address] Rod Ramirez Sodium [Moles/Vol] 139 mmol/L Normal 136-145 [facility] Comment on above: Performed By: #### B MP #### [facility] [address] [address] [address] Rod Ramirez Urea nitrogen [Mass/Vol] 7.0 mg/dL Normal 7.0-18.0 [facility] Comment on above: Performed By: #### B MP #### [facility] [address] [address] [address] Rod Ramirez Urea nitrogen/Creatinine [Mass ratio] 8.9 mg/mg Normal [facility] Comment on above: Performed By: #### B MP #### [facility] [address] [address] [address] Rod Ramirez US PELVIS TRANSVAGon 023 [...] AUBREY BURKS Date: 2022-07-28 07:46 Normal [facility] WET PREPon 07-28-2022 CLUE CELLS NONE SEEN Normal NONE SEEN [facility] Comment on above: Performed By: #### W P #### [facility] [address] [address] [address] Rod Ramirez FUNGAL ELEMENTS NONE SEEN Normal NONE SEEN [facility] Comment on above: Performed By: #### W P #### [facility] [address] [address] [address] Rod Ramirez RBC -WET PREP RARE Abnormal NONE SEEN [facility] Comment on above: Performed By: #### W P #### [facility] [address] [address] [address] Rod Ramirez TRICHOMONAS NONE SEEN Normal NONE SEEN [facility] Comment on above: Performed By: #### W P #### [facility] [address] [address] [address] Rod Ramirez WBC- WET PREP RARE Abnormal NONE SEEN [facility] Comment on above: Performed By: #### W P #### [facility] [address] [address] [address] Rod Ramirez WET PREP BACTERIA NONE SEEN Normal NONE SEEN [facility] Comment on above: Performed By: #### W P #### [facility] [address] [address] [address] Rod Morales 04-30-2022 CNPN Telephone (HEMASA) ANTONIA NOYOLA ([id number]) 1985 F Date Time Provider Department 04/30/22 [...] Fully Assessed Reason for Visit: Lab Orders [2258] Primary Visit Diagnosis:Iron deficiency anemia due to chronic blood loss [D50.0] Order(s):COMP METABOLIC PANEL [SQCMP] Order #: [id number] FUTURE Prescriptions as of 05/03/2022 - ALPRAZolam [...] Status:Closed by MADYSON NI on 05/03/22 Normal [facility] Anisocytosis LM Ql (Bld)Orde red By: Yevgeniy Cabrera on 04-28-2022 Anisocytosis Ql (Bld) Marked [facility] Automated erythrocytes count in urine sediment (number/area)Ordered By: Yevgeniy Cabrera on 04-28-2022 RBC Auto (Urine sed) [#/Area] None seen [HPF] 0-[address] [facility] Automated leukocytes count i n urine sediment (number/area)Ordered By: Yevgeniy Cabrera on 04-28-2022 WBC Auto (Urine sed) [#/Area] 3-4 [HPF] 0-[address] [facility] Basophils Auto (Bld) [#/Vol] Ordered By: Yevgeniy Cabrera on 04-28-2022 Basophils (Bld) [#/Vol] 0.1 10*3/uL 0.0-0.[address] [facility] Basophils/100 WBC Auto (Bld) Ordered By: Yevgeniy Cabrera on 04-28-2022 Basophils/100 WBC (Bld) 1.0 % . [facility] Bilirubin Test strip Ql (U)O rdered By: Yevgeniy Cabrera on 04-28-2022 Bilirubin Ql (U) Negative Negative [facility] Body fluid albumin measureme nt (mass/volume)Ordered By: Yevgeniy Cabrera on 04-28-2022 Albumin (Body fld) [Mass/Vol] 3.8 g/dL 3.2-5.[address] [facility] Color Auto (U)Ordered By: Marcus Cabrera on 04-28-2022 Color (U) Yellow Yellow [facility] Creatinine and Glomerular fi ltration rate.predicted panel (S/P/Bld)Ordered By: Yevgeniy Cabrera on 04-28-2022 Creatinine [Mass/Vol] 0.62 mg/dL 0.44-1.03 [facility] Eosinophils Auto (Bld) [#/Vo l]Ordered By: Yevgeniy Cabrera on 04-28-2022 Eosinophils (Bld) [#/Vol] 0.1 10*3/uL 0.0-0.[address] [facility] Eosinophils/100 WBC Auto (Bl d)Ordered By: Yevgeniy Cabrera on 04-28-2022 Eosinophils/100 WBC (Bld) 1.0 % . [facility] Erythrocyte distribution wid th Auto (RBC) [Ratio]Ordered By: Yevgeniy Cabrera on 04-28-2022 Erythrocyte distribution width (RBC) [Ratio] 27.1 % 11.9-15.[address] [facility] Estimated glomerular filtrat ion rate (GFR) non- AmericanOrdered By: Yevgeniy Cabrera on 04-28-2022 GFR/1.73 sq M.predicted among non-blacks MDRD (S/P/Bld) [Vol rate/Area] > 60 mL/Min [facility] Globulin Calc (S) [Mass/Vol] Ordered By: Yevgeniy Cabrera on 04-28-2022 Globulin (S) [Mass/Vol] 3.1 g/dL [facility] HCG ( test) IA.rapi d Ql (U)Ordered By: Yevgeniy Cabrera on 04-28-2022 HCG ( test) Ql (U) Negative [facility] Hematocrit Auto (Bld) [Volum e fraction]Ordered By: Yevgeniy Cabrera on 04-28-2022 Hematocrit (Bld) [Volume fraction] 39.4 % 34.0-46.[address] [facility] Hemoglobin [Mass/volume] in BloodOrdered By: Yevgeniy Cabrera on 11-16-2022 Hemoglobin (Bld) [Mass/Vol] 12.3 g/dL 11.8-15.[address] [facility] Hypochromia LM Ql (Bld)Order ed By: Yevgeniy Cabrera on 04-28-2022 Hypochromia Ql (Bld) Slight [facility] Ketones Auto test strip (U) [Mass/Vol]Ordered By: Yevgeniy Cabrera on 04-28-2022 Ketones (U) [Mass/Vol] Negative Negative Fi [facility] - Hematology and Cell countsOrdered By: Yevgeniy Cabrera on 04-28-2022 Nucleated RBC/100 WBC (Bld) [Ratio] 0.0 % 0-0.[address] [facility] - UrinalysisOrder ed By: Yevgeniy Cabrera on 04-28-2022 Hyaline casts LM Ql (Urine sed) None seen [LPF] 0-[address] [facility] Leukocytes [#/volume] in Blo od by Automated countOrdered By: Yevgeniy Cabrera on 04-28-2022 WBC (Bld) [#/Vol] 7.9 10*3/uL 4.5-11.0 [facility] Lymphocytes Auto (Bld) [#/Vo l]Ordered By: Yevgeniy Cabrera on 04-28-2022 Lymphocytes (Bld) [#/Vol] 2.3 10*3/uL 1.00-4.[address] [facility] Lymphocytes/100 WBC Auto (Bl d)Ordered By: Yevgeniy Cabrera on 04-28-2022 Lymphocytes/100 WBC (Bld) 28.9 % . [facility] MCH Auto (RBC) [Entitic mass ]Ordered By: Yevgeniy Cabrera on 04-28-2022 MCH (RBC) [Entitic mass] 23.3 pg 24.7-34.[address] [facility] MCHC Auto (RBC) [Mass/Vol]Or dered By: Yevgeniy Cabrera on 04-28-2022 MCHC (RBC) [Mass/Vol] 31.3 g/dL 32.0-35.0 [facility] MCV Auto (RBC) [Entitic vol] Ordered By: Yegveniy Cabrera on 04-28-2022 MCV (RBC) [Entitic vol] 74.5 fL 80-100 [facility] Monocytes Auto (Bld) [#/Vol] Ordered By: Yevgeniy Cabrera on 04-28-2022 Monocytes (Bld) [#/Vol] 0.4 10*3/uL 0.0-0.[address] [facility] Monocytes/100 WBC Auto (Bld) Ordered By: Yevgeniy Cabrera on 04-28-2022 Monocytes/100 WBC (Bld) 4.5 % . [facility] Neutrophils Auto (Bld) [#/Vo l]Ordered By: Yevgeniy Cabrera on 04-28-2022 Neutrophils (Bld) [#/Vol] 5.1 10*3/uL 1.8-7.[address] [facility] Neutrophils/100 WBC Auto (Bl d)Ordered By: Yevgeniy Cabrera on 04-28-2022 Neutrophils/100 WBC (Bld) 64.6 % . [facility] Nitrite Test strip Ql (U)Ord ered By: Yevgeniy Cabrera on 04-28-2022 Nitrite Ql (U) Negative Negative [facility] No Panel InformationOrdered By: Yevgeniy Cabrera on 04-28-2022 Estimated GFR () > 60 mL/Min [facility] Comment on above: GFR estimated refere nce range: According to KDOQI guidelines, <60 ml/min/1.73m2 is sufficient to diagnose a patient with chronic kidney disease. Pharmacy Creatinine Clearance (Chem 132.[address] [facility] Slides for Pathologist Review Ordered path review [facility] Ovalocyte detectionOrdered B y: Yevgeniy Cabrera on 04-28-2022 Ovalocytes LM Ql (Bld) Moderate [facility] Platelet adequacy [Presence] in Blood by Light microscopyOrdered By: Yevgeniy Cabrera on 04-28-2022 Platelets LM Ql (Bld) Normal Normal [facility] Platelet mean volume Auto (B ld) [Entitic vol]Ordered By: Yevgeniy Cabrera on 04-28-2022 Platelet mean volume (Bld) [Entitic vol] 7.4 fL 6.3-10.[address] [facility] Platelet morphology finding [Identifier] in BloodOrdered By: Yevgeniy Cabrera on 04-28-2022 Platelet morphology finding Nom (Bld) Normal Normal [facility] Platelets Auto (Bld) [#/Vol] Ordered By: Yevgeniy Cabrera on 04-28-2022 Platelets (Bld) [#/Vol] 329 10*3/uL 150-[address] [facility] Poikilocytosis [Presence] in Blood by Light microscopyOrdered By: Yevgeniy Cabrera on 04-28-2022 Poikilocytosis LM Ql (Bld) Moderate [facility] Polychromasia [Presence] in Blood by Light microscopyOrdered By: Yevgeniy Cabrera on 04-28-2022 Polychromasia LM Ql (Bld) Slight [facility] Protein Auto test strip (U) [Mass/Vol]Ordered By: Yevgeniy Cabrera on 04-28-2022 Protein (U) [Mass/Vol] Negative Negative Fi [facility] Protein [Mass/volume] in Ser um or PlasmaOrdered By: Yevgeniy Cabrera on 04-28-2022 Protein [Mass/Vol] 6.9 g/dL 6.1-7.9 [facility] RBC Auto (Bld) [#/Vol]Ordere d By: Yevgeniy Cabrera on 04-28-2022 RBC (Bld) [#/Vol] 5.29 10*6/uL 3.60-5.00 [facility] RBC morphologyOrdered By: Marcus Cabrera on 04-28-2022 RBC morphology finding Nom (Bld) N/A [facility] Serum or plasma alanine syed otransferase measurement without P-5'-P (enzymatic activiOrdered By: Yevgeniy Cabrera on 04-28-2022 ALT No additional P-5'-P [Catalytic activity/Vol] 43 U/L 10-[address] [facility] Serum or plasma albumin/glob ulin mass ratioOrdered By: Yevgeniy Cabrera on 04-28-2022 Albumin/Globulin [Mass ratio] 1.2 {ratio} [facility] Serum or plasma alkaline zeeshan sphatase measurement (enzymatic activity/volume)Ordered By: Yevgeniy Cabrera on 04-28-2022 ALP [Catalytic activity/Vol] 65 U/L 32-[address] [facility] Serum or plasma anion gap de terminationOrdered By: Yevgeniy Cabrera on 04-28-2022 Anion gap [Moles/Vol] 14.6 mmol/L 6.0-15.0 [facility] Serum or plasma aspartate am inotransferase measurement (enzymatic activity/volume)Ordered By: Yevgeniy Cabrera on 04-28-2022 AST [Catalytic activity/Vol] 26 U/L [facility] Serum or plasma calcium donaldo urement (mass/volume)Ordered By: Yevgeniy Cabrera on 04-28-2022 Calcium [Mass/Vol] 9.3 mg/dL 8.2-10.2 [facility] Serum or plasma chloride claudia surement (moles/volume)Ordered By: Yevgeniy Cabrera on 04-28-2022 Chloride [Moles/Vol] 105 mmol/L 95-114 [facility] Serum or plasma glucose donaldo urement (mass/volume)Ordered [...] on 04-28-2022 Potassium [Moles/Vol] 3.7 mmol/L 3.5-5.1 [facility] Serum or plasma sodium measu rement (moles/volume)Ordered By: Yevgeniy Cabrera on 04-28-2022 Sodium [Moles/Vol] 137 mmol/L 136-146 [facility] Serum or plasma total biliru bin measurement (mass/volume)Ordered By: Yevgeniy Cabrera on 04-28-2022 Bilirubin [Mass/Vol] 0.5 mg/dL 0.3-1.2 [facility] Serum or plasma total carbon dioxide measurement (moles/volume)Ordered By: Yevgeniy Cabrera on 04-28-2022 CO2 [Moles/Vol] 21.1 mmol/L 22.0-30.[address] [facility] Serum or plasma urea nitroge n measurement (mass/volume)Ordered By: Yevgeniy Cabrera on 04-28-2022 Urea nitrogen [Mass/Vol] 5 mg/dL 03-[address] [facility] Specific gravity Auto test s trip (U) [Rel density]Ordered By: Yevgeniy Cabrera on 04-28-2022 Specific gravity (U) [Rel density] 1.005 1.001-1.[address] [facility] Squamous epithelial cells de tection in urine sediment by light microscopyOrdered By: Yevgeniy Cabrera on 04-28-2022 Epithelial cells.squamous LM Ql (Urine sed) 0-1 [HPF] 0-[address] [facility] Teardrop cell detectionOrder ed By: Yevgeniy Cabrera on 04-28-2022 Dacrocytes LM Ql (Bld) [facility] Urine bacteria detection by automated methodOrdered By: Yevgeniy Cabrera on 04-28-2022 Bacteria Auto Ql (U) None seen None Seen [facility] Urine clarity by refractomet ry automatedOrdered By: Yevgeniy Cabrera on 04-28-2022 Clarity Refractometry automated (U) Cloudy Clear [facility] Urine glucose measurement by automated test strip (mass/volume)Ordered By: Yevgeniy Cabrera on 04-28-2022 Glucose Auto test strip (U) [Mass/Vol] Normal mg/dL Normal [facility] Urine hemoglobin detection b y automated test stripOrdered By: Yevgeniy Cabrera on 04-28-2022 Hemoglobin Auto test strip Ql (U) Negative Negative [facility] Urine leukocyte esterase det ection by automated test stripOrdered By: Yevgeniy Cabrera on 04-28-2022 Leukocyte esterase Auto test strip Ql (U) 1+ Negative [facility] Urobilinogen Auto test strip (U) [Mass/Vol]Ordered By: Yevgeniy Cabrera on 04-28-2022 Urobilinogen (U) [Mass/Vol] Normal mg/dL Normal [facility] pH Auto test strip (U)Ordere d By: Yevgeniy Cabrera on 04-28-2022 pH (U) 6.5 [pH] 5.0-9.[address] [facility] ALLIED HEALTHon 04-09-2022 ALLIED HEALTH HNO ID: [id number] Author: Stephenie Suh, 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 Service: ? [...] 2022 TIME: 2:21 PM PAGER/CONTACT #[facility] CNPN Telephone (NCCAP) ANTONIA NOYOLA ([id number]) 1985 F Date Time Provider Department 03/19/22 MADYSON NI During your visit today, we recorded the following information about you: oCrbin Mane 03/19/2022 2:56 PM Signed Patient missed [...] Date Reviewed: 03/10/2022 Reviewed by: Madyson Ni APRN.[facility] - Fully Assessed Reason for Visit: No [...] by CORBIN MANE on 03/19/22 [facility] ANTONIA NOYOLA ([id number]) 1985 F Date Time Provider Department 03/19/22 FINANCIAL NAVIGATOR JOHNY InferXMARILOUChi During your visit today, we recorded the following information about you: [facility] 03/19/2022 4:48 PM Signed 1st report of treatment-Non oncology regimen (Venofer) No FA available for this treatment at this time. Allergies As of Date: 03/19/2022 Noted Allergy Reaction MORPHINE 06/20/2018 14 - Other: See Comments Comments: Spasms Date Reviewed: 03/10/2022 Reviewed by: Madyson Ni APRN.[facility] - Fully Assessed Reason for Visit: Benefits [...] of iron [K90.9] 10/27/2020 Encounter Status:Closed by [facility] SPARKLE JACOBSEN on 03/19/22 [facility]2022 [facility] ([facility] ANTONIA NOYOLA ([id number]) 1985 F Date Time Provider Department 03/15/22 [...] Date Reviewed: 03/10/2022 Reviewed by: Madyson Ni APRN.[facility] - Fully Assessed Reason for Visit: [...] Status:Closed by SHARON SAAVEDRA on 03/15/22 Normal [facility] CBC W Auto Differential pane l (Bld)on 03-10-2022 Basophils (Bld) [#/Vol] 0.05 10*3/uL Normal <0.11 [facility] Comment on above: Order Comment: Speci men Type: BLOOD SPECIMEN Ordering Facility: [facility] Address: [address] [place] [address] Performed By: #### 5 7021-8 #### [facility] CLIA [id number] [address] [place] [address] 18984 Basophils/100 WBC (Bld) 0.8 % Normal [facility] Comment on above: Order Comment: Speci men Type: BLOOD SPECIMEN Ordering Facility: [facility] Address: [address] [place] [address] Performed By: #### 5 7021-8 #### [facility] CLIA [id number] [address] [place] [address] 24310 Differential cell count method Nom (Bld) Auto Normal [facility] Comment on above: Order Comment: Speci men Type: BLOOD SPECIMEN Ordering Facility: [facility] Address: [address] [place] [address] Performed By: #### 5 7021-8 #### [facility] CLIA [id number] [address] [place] [address] 81616 Eosinophils (Bld) [#/Vol] 0.15 10*3/uL Normal <0.46 [facility] Comment on above: Order Comment: Speci men Type: BLOOD SPECIMEN Ordering Facility: [facility] Address: [address] [place] [address] Performed By: #### 5 7021-8 #### [facility] CLIA [id number] [address] [place] [address] 50100 Eosinophils/100 WBC (Bld) 2.3 % Normal [facility] Comment on above: Order Comment: Speci men Type: BLOOD SPECIMEN Ordering Facility: [facility] Address: [address] [address] Performed By: #### 5 7021-8 #### [facility] CLIA [id number] [address] [place] [address] Erythrocyte distribution width (RBC) [Ratio] 17.4 % High 11.5-15.0 [facility] Comment on above: Order Comment: Speci men Type: BLOOD SPECIMEN Ordering Facility: [facility] Address: [address] [place] [address] Performed By: #### 5 7021-8 #### [facility] CLIA [id number] [address] [place] [address]120 Hematocrit (Bld) [Volume fraction] 29.4 % Low 36.0-46.0 [facility] Comment on above: Order Comment: Speci men Type: BLOOD SPECIMEN Ordering Facility: [facility] Address: [facility] [address] Performed By: #### 5 7021-8 #### [facility] CLIA [id number] [address] [place] [address] 99493 Hemoglobin (Bld) [Mass/Vol] 8.5 g/dL Low 11.5-15.5 [facility] Comment on above: Order Comment: Speci men Type: BLOOD SPECIMEN Ordering Facility: [facility] Address: [address] [place] [address] Performed By: #### 5 7021-8 #### [facility] CLIA [id number] [address] [place] [address] 67697 IMMATURE GRAN % 0.3 % Normal [facility] Comment on above: Order Comment: Speci men Type: BLOOD SPECIMEN Ordering Facility: [facility] Address: [facility] [place] [address] Performed By: #### 5 7021-8 #### [facility] CLIA [id number] [address] [place] [address] IMMATURE GRAN ABS <0.03 Normal <0.10 [facility] Comment on above: Order Comment: Speci men Type: BLOOD SPECIMEN Ordering Facility: [facility] Address: [address] [place], [place] [address] Performed By: #### 5 7021-8 #### [facility] CLIA [id number] [address] [place] [address] 58182 Lymphocytes (Bld) [#/Vol] 3.62 10*3/uL Normal 1.00-4.00 [facility] Comment on above: Order Comment: Speci men Type: BLOOD SPECIMEN Ordering Facility: [facility] Address: [address] [place], [place] [address] Performed By: #### 5 7021-8 #### [facility] CLIA [id number] [address] [place] [address] 72558 Lymphocytes/100 WBC (Bld) 54.8 % Normal [facility] Comment on above: Order Comment: Speci men Type: BLOOD SPECIMEN Ordering Facility: [facility] Address: [address] [place] [address] Performed By: #### 5 7021-8 #### [facility] CLIA [id number] [address] [place] [address] 10589 MCH (RBC) [Entitic mass] 20.3 pg Low 26.0-34.0 [facility] Comment on above: Order Comment: Speci men Type: BLOOD SPECIMEN Ordering Facility: [facility] Address: [address] [place], [place] [address] Performed By: #### 5 7021-8 #### [facility] CLIA [id number] [address] [place] [address] 05878 MCHC (RBC) [Mass/Vol] 28.9 g/dL Low 30.5-36.0 [facility] Comment on above: Order Comment: Speci men Type: BLOOD SPECIMEN Ordering Facility: [facility] Address: [address] [place], [place] [address] Performed By: #### 5 7021-8 #### [facility] CLIA [id number] [address] [place] [address] 10634 MCV (RBC) [Entitic vol] 70.3 fL Low 80.0-100.0 [facility] Comment on above: Order Comment: Speci men Type: BLOOD SPECIMEN Ordering Facility: [facility] Address: [address] [place] [address] Performed By: #### 5 7021-8 #### [facility] CLIA [id number] [address] [place] [address] 84183 Monocytes (Bld) [#/Vol] 0.38 10*3/uL Normal <0.87 [facility] Comment on above: Order Comment: Speci men Type: BLOOD SPECIMEN Ordering Facility: [facility] Address: [address] [place] [address] Performed By: #### 5 7021-8 #### [facility] CLIA [id number] [address] [place] [address] 43552 Monocytes/100 WBC (Bld) 5.7 % Normal [facility] Comment on above: Order Comment: Speci men Type: BLOOD SPECIMEN Ordering Facility: [facility] Address: [address] [place] [address] Performed By: #### 5 7021-8 #### [facility] CLIA [id number] [address] [place] [address] 93701 Neutrophils (Bld) [#/Vol] 2.39 10*3/uL Normal 1.45-7.50 [facility] Comment on above: Order Comment: Speci men Type: BLOOD SPECIMEN Ordering Facility: [facility] Address: [address] [place] [address] Performed By: #### 5 7021-8 #### [facility] CLIA [id number] [address] [place] [address] 65479 Neutrophils/100 WBC (Bld) 36.1 % Normal [facility] Comment on above: Order Comment: Speci men Type: BLOOD SPECIMEN Ordering Facility: [facility] Address: [address] [place], [place] [address] Performed By: #### 5 7021-8 #### [facility] CLIA [id number] [address] [place] [address] 26405 Nucleated RBC (Bld) [#/Vol] 10*3/uL Normal <0.01 [facility] Comment on above: Order Comment: Speci men Type: BLOOD SPECIMEN Ordering Facility: [facility] Address: [address] [place] [address] Performed By: #### 5 7021-8 #### [facility] CLIA [id number] [address] [place] [address] 07787 Nucleated RBC/100 WBC (Bld) [Ratio] 0.0 /100 WBC Normal [facility] Comment on above: Order Comment: Speci men Type: BLOOD SPECIMEN Ordering Facility: [facility] Address: [address] [place] [address] Performed By: #### 5 7021-8 #### [facility] CLIA [id number] [address] [place] [address] 69422 Platelet mean volume (Bld) [Entitic vol] 8.8 fL Low 9.0-12.7 [facility] Comment on above: Order Comment: Speci men Type: BLOOD SPECIMEN Ordering Facility: [facility] Address: [address] [place] [address] Performed By: #### 5 7021-8 #### [facility] CLIA [id number] [address] [place] [address] 41307 Platelets (Bld) [#/Vol] 419 10*3/uL High 150-400 [facility] Comment on above: Order Comment: Speci men Type: BLOOD SPECIMEN Ordering Facility: [facility] Address: [address] [place] [address] Performed By: #### 5 7021-8 #### [facility] CLIA [id number] [address] [place] [address] 57601 RBC (Bld) [#/Vol] 4.18 10*6/uL Normal 3.90-5.20 [facility] Comment on above: Order Comment: Speci men Type: BLOOD SPECIMEN Ordering Facility: [facility] Address: [address] [place], [place] [address] Performed By: #### 5 7021-8 #### [facility] CLIA [id number] [address] [place] [address] 17653 WBC (Bld) [#/Vol] 6.61 10*3/uL Normal 3.70-11.00 [facility] Comment on above: Order Comment: Speci men Type: BLOOD SPECIMEN Ordering Facility: [facility] Address: [address] [place] [address] Performed By: #### 5 7021-8 #### [facility] CLIA [id number] [address] [place] [address] 90800 CNOVSPon 03-10-2022 CNOVSP Visit (SP) Office (HEMASA) ANTONIA NOYOLA ([id number]) 1985 F Date Time Provider Department 03/10/22 2:00 PM MADYSON NI During your visit today, we recorded the following information about you: Temperature Pulse Respiration Blood pressure 97.9 degrees 95/minute 16/minute 130/75 Weight Height 83.4 kg 1.651 m Madyson Ni APRN.CNP 03/10/2022 2:25 PM Signed NAME: Antonia Noyola NO.: [id number] DATE OF SERVICE: March 10, 2022 (Elements [...] 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 Recent laboratories from [facility] October 04, 2020 show hemoglobin of 11.6 [...] to chronic (more content not included)... Normal [facility] Comprehensive metabolic 2000 panelon 03-10-2022 Albumin [Mass/Vol] 4.0 g/dL Normal 3.9-4.9 [facility] Comment on above: Order Comment: Speci men Type: BLOOD SPECIMEN Ordering Facility: [facility] Address: [address] [address] Performed By: #### 2 4323-8 #### [facility] CLIA [id number] [address] [place] [address] ALP [Catalytic activity/Vol] 55 U/L Normal 34-123 [facility] Comment on above: Order Comment: Speci men Type: BLOOD SPECIMEN Ordering Facility: [facility] Address: [address] [address] Performed By: #### 2 4323-8 #### [facility] CLIA [id number] [address] [place] [address] 45155 ALT [Catalytic activity/Vol] 12 U/L Normal 7-38 [facility] Comment on above: Order Comment: Speci men Type: BLOOD SPECIMEN Ordering Facility: [facility] Address: [address] [address] Performed By: #### 2 432-8 #### [facility] CLIA [id number] [address] [place] [address] 68462 Anion gap [Moles/Vol] 9 mmol/L Normal 9-18 [facility] Comment on above: Order Comment: Speci men Type: BLOOD SPECIMEN Ordering Facility: [facility] Address: [address] [place] [address] Performed By: #### 2 4323-8 #### [facility] CLIA [id number] [address] [place] [address] 25787 AST [Catalytic activity/Vol] 14 U/L Normal 13-35 [facility] Comment on above: Order Comment: Speci men Type: BLOOD SPECIMEN Ordering Facility: [facility] Address: [address] [address] Performed By: #### 2 4323-8 #### [facility] CLIA [id number] [address] [place] [address] 55747 Bilirubin [Mass/Vol] 0.3 mg/dL Normal 0.2-1.3 [facility] Comment on above: Order Comment: Speci men Type: BLOOD SPECIMEN Ordering Facility: [facility] Address: [address] Performed By: #### 2 4323-8 #### [facility] CLIA [id number] [address] [place] [address] Calcium [Mass/Vol] 8.8 mg/dL Normal 8.5-10.2 [facility] Comment on above: Order Comment: Speci men Type: BLOOD SPECIMEN Ordering Facility: [facility] Address: [address] [place] [address] Performed By: #### 2 4323-8 #### [facility] CLIA [id number] [address] [place] [address] 68798 Chloride [Moles/Vol] 105 mmol/L Normal 97-105 [facility] Comment on above: Order Comment: Speci men Type: BLOOD SPECIMEN Ordering Facility: [facility] Address: [address] [place], [place] [address] Performed By: #### 2 4323-8 #### [facility] CLIA [id number] [address] [place] [address] 76255 CO2 [Moles/Vol] 24 mmol/L Normal 22-30 [facility] Comment on above: Order Comment: Speci men Type: BLOOD SPECIMEN Ordering Facility: [facility] Address: [address] Performed By: #### 2 4323-8 #### [facility] CLIA [id number] [address] [place] [address] Creatinine [Mass/Vol] 0.65 mg/dL Normal 0.58-0.96 [facility] Comment on above: Order Comment: Speci men Type: BLOOD SPECIMEN Ordering Facility: [facility] Address: [address] Performed By: #### 2 4323-8 #### [facility] CLIA [id number] [address] [place] [address] 26049 ESTIMATED GLOMERULAR FILTRATION RATE 118 mL/min/1.73m??? Normal >=60 [facility] Comment on above: Order Comment: Roselyn conway Type: BLOOD SPECIMEN Ordering Facility: [facility] Address: [address] [place], [place] [id number] Result Comment: Shelley mated Glomerular Filtration Rate [...] GFR. Performed By: #### 2 4323-8 #### [facility] CLIA [id number] [address] [place] [address] 35563 Glucose [Mass/Vol] 109 mg/dL High 74-99 [facility] Comment on above: Order Comment: Roselyn conway Type: BLOOD SPECIMEN Ordering Facility: [facility] Address: [address] [place] [address] Result Comment: The [place] [employer] (ADA) provides guidance for cutoff [...] Standards of Medical Care in Diabetes 2016, [place] [employer]. Diabetes Care. 2016.39(Suppl 1). Performed By: #### 2 4323-8 #### [facility] CLIA [id number] [address] [place] [address] 11498 Potassium [Moles/Vol] 3.4 mmol/L Low 3.7-5.1 [facility] Comment on above: Order Comment: Speci men Type: BLOOD SPECIMEN Ordering Facility: [facility] Address: [address] [place] [address] Performed By: #### 2 4323-8 #### [facility] CLIA [id number] [address] [place] [address] Protein [Mass/Vol] 6.5 g/dL Normal 6.3-8.0 [facility] Comment on above: Order Comment: Speci men Type: BLOOD SPECIMEN Ordering Facility: [facility] Address: [address] [place] [address] Performed By: #### 2 4323-8 #### [facility] CLIA [id number] [address] [place] [address] 24073 Sodium [Moles/Vol] 138 mmol/L Normal 136-144 [facility] Comment on above: Order Comment: Speci men Type: BLOOD SPECIMEN Ordering Facility: [facility] Address: [address] [place] [address] Performed By: #### 2 4323-8 #### [facility] CLIA [id number] [address] [place] [address]7529 Urea nitrogen [Mass/Vol] 8 mg/dL Normal 7-21 [facility] Comment on above: Order Comment: Speci men Type: BLOOD SPECIMEN Ordering Facility: [facility] Address: [address] [place] [address] Performed By: #### 2 4323-8 #### [facility] CLIA [id number] [address] [place] [address]199 Ferritin SerPl-ncon 2021 Ferritin [Mass/Vol] 5.4 ng/mL Low 14.7-205.1 [facility] Comment on above: Order Comment: Speci men Type: BLOOD SPECIMEN Ordering Facility: [facility] Address: [address] [place] [address] Performed By: #### 5 0190-8, 2132-9, 2284-8, 6-4 #### [facility] CLIA [id number] [address] [place] [address] [place] Folate SerPl-mCncon 03-10-20 Folate [Mass/Vol] 8.7 ng/mL Normal >4.7 [facility] Comment on above: Order Comment: Speci men Type: BLOOD SPECIMEN Ordering Facility: [facility] Address: [address] [place] [address] Performed By: #### 5 0190-8, 2-9, 2283-8, 6-4 #### [facility] CLIA [id number] [address] [place] [address] [place] Iron and Iron binding capaci ty panelon 03-10-2022 Iron [Mass/Vol] 17 ug/dL Low 41-186 [facility] Comment on above: Order Comment: Speci men Type: BLOOD SPECIMEN Ordering Facility: [facility] Address: [address] [place] [address] Performed By: #### 5 0190-8, 2-9, 2283-8, 6-4 #### [facility] CLIA [id number] [address] [place] [address] [place] Iron binding capacity [Mass/Vol] 422 ug/dL High 232-386 [facility] Comment on above: Order Comment: Speci men Type: BLOOD SPECIMEN Ordering Facility: [facility] Address: [address] [place], [place] [address] Performed By: #### 5 0190-8, 2-9, 2283-8, 6-4 #### [facility] CLIA [id number] [address] [place] [address] [place] Iron/TIBC [Molar ratio] 4.0 % Low 15.0-57.0 C [facility] Comment on above: Order Comment: Speci men Type: BLOOD SPECIMEN Ordering Facility: [facility] Address: [address] [place], [place] [address] Performed By: #### 5 0190-8, 2131-9, 4-8, 6-4 #### [facility] CLIA [id number] [address] [place] [address] [place] Vit [facility] 022 Cobalamin (Vitamin B12) [Mass/Vol] 367 pg/mL Normal 232-1245 [facility] Comment on above: Order Comment: Speci men Type: BLOOD SPECIMEN Ordering Facility: [facility] Address: [address] [place], [place] [address] Performed By: #### 5 0190-8, 2131-9, 2283-8, 6-4 #### [facility] CLIA [id number] [address] [place] [address] OF [place] Andrew 02-18-2022 CNPN Telephone (HEMASA) ANTONIA NOYOLA ([id number]) 1985 F Date Time Provider Department 02/18/22 MADYSON NI During your visit today, we recorded the following information about you: Meaghan Ordonez 02/18/2022 3:15 PM Signed Patient has an appt on 02/23. Would you like labs? Allergies As of Date: 02/18/2022 Noted Allergy Reaction MORPHINE 06/20/2018 14 - Other: See Comments Comments: Nathalie Date Reviewed: 10/27/2020 Reviewed by: Maria E Guthrie - Fully Assessed Reason for Visit: Lab Orders [8] Primary Visit Diagnosis:Iron deficiency anemia due to chronic blood loss [D50.0] Order(s):CBC + DIFF [SQCBCDIF] Order #: [id number] FUTURE COMP METABOLIC PANEL [SQCMP] Order #: [id number] FUTURE IRON + TIBC [SQIRON] Order #: [id number] FUTURE FERRITIN BLD [SQFERR] Order #: [id number] FUTURE VITAMIN B12 BLOOD [SQB12] Order #: [id number] FUTURE FOLATE SERUM [SQSERFOL] Order #: [id number] FUTURE Prescriptions as of 02/20/2022 - ALPRAZolam [...] Status:Closed by GINO REID on 02/20/22 Normal [facility] Basophils Auto (Bld) [#/Vol] Ordered By: Jennifer Duran on 02-12-2022 Basophils (Bld) [#/Vol] 0.1 10*3/uL 0.0-0.[address] [facility] Basophils/100 WBC Auto (Bld) Ordered By: Jennifer Duran on 02-12-2022 Basophils/100 WBC (Bld) 1.0 % . [facility] Blood anisocytosis detection Ordered By: Jennifer Duran on 02-12-2022 Anisocytosis Ql (Bld) Moderate [facility] Blood hemoglobin measurement (mass/volume)Ordered By: Jennifer Duran on 02-12-2022 Hemoglobin (Bld) [Mass/Vol] 8.5 g/dL 11.8-15.[address] [facility] Blood leukocytes automated c ount (number/volume)Ordered By: Jennifer Duran on 02-12-2022 WBC (Bld) [#/Vol] 5.9 10*3/uL 4.5-11.0 [facility] Body fluid albumin measureme nt (mass/volume)Ordered By: Jennifer Duran on 02-12-2022 Albumin (Body fld) [Mass/Vol] 3.7 g/dL 3.2-5.[address] [facility] CT biopsyOrdered By: Jennifer avila on 02-12-2022 Transferrin [Mass/Vol] 356 mg/dL 180-380 [facility] Creatinine and Glomerular fi ltration rate.predicted panel (S/P/Bld)Ordered By: Jennifer Duran on 02-12-2022 Creatinine [Mass/Vol] 0.72 mg/dL 0.44-1.03 [facility] Eosinophils Auto (Bld) [#/Vo l]Ordered By: Jennifer Duran on 02-12-2022 Eosinophils (Bld) [#/Vol] 0.1 10*3/uL 0.0-0.[address] [facility] Eosinophils/100 WBC Auto (Bl d)Ordered By: Jennifer Duran on 02-12-2022 Eosinophils/100 WBC (Bld) 2.2 % . [facility] Erythrocyte distribution wid th Auto (RBC) [Ratio]Ordered By: Jennifer Duran on 02-12-2022 Erythrocyte distribution width (RBC) [Ratio] 17.3 % 11.9-15.[address] [facility] Estimated glomerular filtrat ion rate (GFR) non- AmericanOrdered By: Jennifer Duran on 02-12-2022 GFR/1.73 sq M.predicted among non-blacks MDRD (S/P/Bld) [Vol rate/Area] > 60 mL/Min [facility] Ferritin [Mass/volume] in Se rum or PlasmaOrdered By: Jennifer Duran on 02-12-2022 Ferritin [Mass/Vol] 5.1 ng/mL 11-306.8 [facility] Globulin Calc (S) [Mass/Vol] Ordered By: Jennifer Duran on 02-12-2022 Globulin (S) [Mass/Vol] 2.9 g/dL [facility] Hematocrit Auto (Bld) [Volum e fraction]Ordered By: Jennifer Duran on 02-12-2022 Hematocrit (Bld) [Volume fraction] 27.9 % 34.0-46.[address] [facility] Hypochromia detectionOrdered By: Jennifer Duran on 02-12-2022 Hypochromia Ql (Bld) Slight [facility] Iron [Mass/volume] in Serum or PlasmaOrdered By: Jennifer Duran on 02-12-2022 Iron [Mass/Vol] 11 ug/dL 40-[address] [facility] Iron binding capacity [Mass/ volume] in Serum or PlasmaOrdered By: Jennifer Duran on 02-12-2022 Iron binding capacity [Mass/Vol] 498 ug/dL 255-[address] [facility] Iron saturation [Mass Fracti on] in Serum or PlasmaOrdered By: Jennifer Duran on 02-12-2022 Iron saturation [Mass fraction] 2.0 % 20-[address] [facility] Laboratory - Hematology and Cell countsOrdered By: Jennifer Duran on 02-12-2022 Nucleated RBC/100 WBC (Bld) [Ratio] 0.3 % 0-0.[address] [facility] Lymphocytes Auto (Bld) [#/Vo l]Ordered By: Jennifer Duran on 02-12-2022 Lymphocytes (Bld) [#/Vol] 3.0 10*3/uL 1.00-4.[address] [facility] Lymphocytes/100 WBC Auto (Bl d)Ordered By: Jennifer Duran on 02-12-2022 Lymphocytes/100 WBC (Bld) 50.8 % . [facility] MCH Auto (RBC) [Entitic mass ]Ordered By: Jennifer Duran on 02-12-2022 MCH (RBC) [Entitic mass] 20.1 pg 24.7-34.[address] [facility] MCHC Auto (RBC) [Mass/Vol]Or dered By: Jennifer Duran on 02-12-2022 MCHC (RBC) [Mass/Vol] 30.4 g/dL 32.0-35.0 [facility] MCV Auto (RBC) [Entitic vol] Ordered By: Jennifer Duran on 02-12-2022 MCV (RBC) [Entitic vol] 66.3 fL 80-100 [facility] Monocytes Auto (Bld) [#/Vol] Ordered By: Jennifer Duran on 02-12-2022 Monocytes (Bld) [#/Vol] 0.3 10*3/uL 0.0-0.[address] [facility] Monocytes/100 WBC Auto (Bld) Ordered By: Jennifer Duran on 02-12-2022 Monocytes/100 WBC (Bld) 5.7 % . [facility] Neutrophils Auto (Bld) [#/Vo l]Ordered By: Jennifer Duran on 02-12-2022 Neutrophils (Bld) [#/Vol] 2.4 10*3/uL 1.8-7.[address] [facility] Neutrophils/100 WBC Auto (Bl d)Ordered By: Jennifer Duran on 02-12-2022 Neutrophils/100 WBC (Bld) 40.3 % . [facility] No Panel InformationOrdered By: Jennifer Duran on 02-12-2022 Estimated GFR () > 60 mL/Min [facility] Comment on above: GFR estimated refere nce range: According to KDOQI guidelines, <60 ml/min/1.73m2 is sufficient to diagnose a patient with chronic kidney disease. Microcytosis Moderate [facility] Pharmacy Creatinine Clearance (Chem N/A [facility] Platelet Estimate Normal Normal [facility] Platelet Morphology Comment Normal Normal [facility] Platelet mean volume Auto (B ld) [Entitic vol]Ordered By: Jennifer Duran on 02-12-2022 Platelet mean volume (Bld) [Entitic vol] 8.1 fL 6.3-10.[address] [facility] Platelets Auto (Bld) [#/Vol] Ordered By: Jennifer Duran on 02-12-2022 Platelets (Bld) [#/Vol] 459 10*3/uL 150-[address] [facility] Protein [Mass/volume] in Ser um or PlasmaOrdered By: Jennifer Duran on 02-12-2022 Protein [Mass/Vol] 6.6 g/dL 6.1-7.9 [facility] RBC Auto (Bld) [#/Vol]Ordere d By: Jennifer Duran on 02-12-2022 RBC (Bld) [#/Vol] 4.20 10*6/uL 3.60-5.00 [facility] RBC morphologyOrdered By: Pool kelle Wilber on 02-12-2022 RBC morphology finding Nom (Bld) N/A [facility] Serum or plasma alanine syed otransferase measurement without P-5'-P (enzymatic activiOrdered By: Jennifer Duran on 02-12-2022 ALT No additional P-5'-P [Catalytic activity/Vol] 69 U/L 10-[address] [facility] Serum or plasma albumin/glob ulin mass ratioOrdered By: Jennifer Duran on 02-12-2022 Albumin/Globulin [Mass ratio] 1.3 {ratio} [facility] Serum or plasma alkaline zeeshan sphatase measurement (enzymatic activity/volume)Ordered By: Jennifer Duran on 02-12-2022 ALP [Catalytic activity/Vol] 73 U/L 32-[address] [facility] Serum or plasma anion gap de terminationOrdered By: Jennifer Duran on 02-12-2022 Anion gap [Moles/Vol] 13.2 mmol/L 6.0-15.0 [facility] Serum or plasma aspartate am inotransferase measurement (enzymatic activity/volume)Ordered By: Jennifer Duran on 02-12-2022 AST [Catalytic activity/Vol] 42 U/L 10-[address] [facility] Serum or plasma calcium donaldo urement (mass/volume)Ordered By: Jennifer Duran on 02-12-2022 Calcium [Mass/Vol] 9.3 mg/dL 8.2-10.2 [facility] Serum or plasma chloride claudia surement (moles/volume)Ordered By: Jennifer Duran on 02-12-2022 Chloride [Moles/Vol] 101 mmol/L 95-114 [facility] Serum or plasma glucose donaldo urement (mass/volume)Ordered [...] on 02-12-2022 Potassium [Moles/Vol] 3.6 mmol/L 3.5-5.1 [facility] Serum or plasma sodium measu rement (moles/volume)Ordered By: Jennifer Duran on 02-12-2022 Sodium [Moles/Vol] 136 mmol/L 136-146 [facility] Serum or plasma total biliru bin measurement (mass/volume)Ordered By: Jennifer Duran on 02-12-2022 Bilirubin [Mass/Vol] 0.4 mg/dL 0.3-1.2 [facility] Serum or plasma total carbon dioxide measurement (moles/volume)Ordered By: Jennifer Duran on 02-12-2022 CO2 [Moles/Vol] 25.4 mmol/L 22.0-30.[address] [facility] Serum or plasma urea nitroge n measurement (mass/volume)Ordered By: Jennifer Duran on 02-12-2022 Urea nitrogen [Mass/Vol] 4 mg/dL 9-[address] [facility] Basophils Auto (Bld) [#/Vol] Ordered By: Kendra Persaud on 09-14-2021 Basophils (Bld) [#/Vol] 0.1 10*3/uL 0.0-0.[address] [facility] Basophils/100 WBC Auto (Bld) Ordered By: Kendra Persaud on 09-14-2021 Basophils/100 WBC (Bld) 1.3 % [facility] Bilirubin Test strip Ql (U)O rdered By: Kendra Persaud on 09-14-2021 Bilirubin Ql (U) Negative Negative [facility] Blood hemoglobin measurement (mass/volume)Ordered By: Kendra Persaud on 09-14-2021 Hemoglobin (Bld) [Mass/Vol] 9.7 g/dL 11.8-15.[address] [facility] Blood leukocytes automated c ount (number/volume)Ordered By: Kendra Persaud on 09-14-2021 WBC (Bld) [#/Vol] 8.9 10*3/uL 4.5-11.0 [facility] Body fluid albumin measureme nt (mass/volume)Ordered By: Kendra Persaud on 09-14-2021 Albumin (Body fld) [Mass/Vol] 3.7 g/dL 3.2-5.[address] [facility] Color Auto (U)Ordered By: Jazmin Persaud on 09-14-2021 Color (U) Yellow Yellow [facility] Creatinine and Glomerular fi ltration rate.predicted panel (S/P/Bld)Ordered By: Kendra Persaud on 09-14-2021 Creatinine [Mass/Vol] 0.71 mg/dL 0.44-1.03 [facility] Eosinophils Auto (Bld) [#/Vo l]Ordered By: Kendra Persaud on 09-14-2021 Eosinophils (Bld) [#/Vol] 0.0 10*3/uL 0.0-0.[address] [facility] Eosinophils/100 WBC Auto (Bl d)Ordered By: Kendra Persaud on 09-14-2021 Eosinophils/100 WBC (Bld) 0.4 % [facility] Erythrocyte distribution wid th Auto (RBC) [Ratio]Ordered By: Kendra Persaud on 09-14-2021 Erythrocyte distribution width (RBC) [Ratio] 17.0 % 11.9-15.[address] [facility] Estimated glomerular filtrat ion rate (GFR) non- AmericanOrdered By: Kendra Persaud on 09-14-2021 GFR/1.73 sq M.predicted among non-blacks MDRD (S/P/Bld) [Vol rate/Area] > 60 mL/Min [facility] Globulin Calc (S) [Mass/Vol] Ordered By: Kendra Persaud on 09-14-2021 Globulin (S) [Mass/Vol] 3.2 g/dL [facility] HCG ( test) IA.rapi d Ql (U)Ordered By: Kendra Persaud on 09-14-2021 HCG ( test) Ql (U) Negative [facility] Hematocrit Auto (Bld) [Volum e fraction]Ordered By: Kendra Persaud on 09-14-2021 Hematocrit (Bld) [Volume fraction] 31.9 % 34.0-46.[address] [facility] Ketones Auto test strip (U) [Mass/Vol]Ordered By: Kendra Persaud on 09-14-2021 Ketones (U) [Mass/Vol] Negative Negative [facility] Laboratory - Chemistry and C hemistry - challengeOrdered By: Kendra Persaud on 09-14-2021 Lipase [Catalytic activity/Vol] 36.0 U/L 22-[address] [facility] Laboratory - Hematology and Cell countsOrdered By: Kendra Persaud on 09-14-2021 Nucleated RBC/100 WBC (Bld) [Ratio] 0.0 % 0-0.[address] [facility] Lymphocytes Auto (Bld) [#/Vo l]Ordered By: Kendra Persaud on 09-14-2021 Lymphocytes (Bld) [#/Vol] 4.1 10*3/uL 1.00-4.[address] [facility] Lymphocytes/100 WBC Auto (Bl d)Ordered By: Kendra Persaud on 09-14-2021 Lymphocytes/100 WBC (Bld) 45.7 % [facility] MCH Auto (RBC) [Entitic mass ]Ordered By: Kendra Persaud on 09-14-2021 MCH (RBC) [Entitic mass] 21.3 pg 24.7-34.[address] [facility] MCHC Auto (RBC) [Mass/Vol]Or dered By: Kendra Persaud on 09-14-2021 MCHC (RBC) [Mass/Vol] 30.4 g/dL 32.0-35.0 [facility] MCV Auto (RBC) [Entitic vol] Ordered By: Kendra Persaud on 09-14-2021 MCV (RBC) [Entitic vol] 70.0 fL 80-100 [facility] Monocytes Auto (Bld) [#/Vol] Ordered By: Kendra Persaud on 09-14-2021 Monocytes (Bld) [#/Vol] 0.7 10*3/uL 0.0-0.[address] [facility] Monocytes/100 WBC Auto (Bld) Ordered By: Kendra Persaud on 09-14-2021 Monocytes/100 WBC (Bld) 7.8 % [facility] Neutrophils Auto (Bld) [#/Vo l]Ordered By: Kendra Persaud on 09-14-2021 Neutrophils (Bld) [#/Vol] 4.0 10*3/uL 1.8-7.[address] [facility] Neutrophils/100 WBC Auto (Bl d)Ordered By: Kendra Persaud on 09-14-2021 Neutrophils/100 WBC (Bld) 44.8 % [facility] Nitrite Test strip Ql (U)Ord ered By: Kendra Persaud on 09-14-2021 Nitrite Ql (U) Negative Negative [facility] No Panel InformationOrdered By: Kendra Persaud on 09-14-2021 Estimated GFR () > 60 mL/Min [facility] Comment on above: GFR estimated refere nce range: According to KDOQI guidelines, <60 ml/min/1.73m2 is sufficient to diagnose a patient with chronic kidney disease. Pharmacy Creatinine Clearance (Chem 119.[address] [facility] Platelet mean volume Auto (B ld) [Entitic vol]Ordered By: Kendra Persaud on 09-14-2021 Platelet mean volume (Bld) [Entitic vol] 7.4 fL 6.3-10.[address] [facility] Platelets Auto (Bld) [#/Vol] Ordered By: Kendra Persaud on 09-14-2021 Platelets (Bld) [#/Vol] 604 10*3/uL 150-[address] [facility] Protein Auto test strip (U) [Mass/Vol]Ordered By: Kendra Persaud on 09-14-2021 Protein (U) [Mass/Vol] Negative Negative [facility] Protein [Mass/volume] in Ser um or PlasmaOrdered By: Kendra Persaud on 09-14-2021 Protein [Mass/Vol] 6.9 g/dL 6.1-7.9 [facility] RBC Auto (Bld) [#/Vol]Ordere d By: Kendra Persaud on 09-14-2021 RBC (Bld) [#/Vol] 4.55 10*6/uL 3.60-5.00 [facility] Serum or plasma alanine syed otransferase measurement without P-5'-P (enzymatic activiOrdered By: Kendra Persaud on 09-14-2021 ALT No additional P-5'-P [Catalytic activity/Vol] 16 U/L 10-[address] [facility] Serum or plasma albumin/glob ulin mass ratioOrdered By: Kendra Persaud on 09-14-2021 Albumin/Globulin [Mass ratio] 1.2 {ratio} [facility] Serum or plasma alkaline zeeshan sphatase measurement (enzymatic activity/volume)Ordered By: Kendra Persaud on 09-14-2021 ALP [Catalytic activity/Vol] 48 U/L 32-[address] [facility] Serum or plasma aspartate am inotransferase measurement (enzymatic activity/volume)Ordered By: Kendra Persaud on 09-14-2021 AST [Catalytic activity/Vol] 17 U/L 10-[address] [facility] Serum or plasma calcium donaldo urement (mass/volume)Ordered By: Kendra Persaud on 09-14-2021 Calcium [Mass/Vol] 9.0 mg/dL 8.2-10.2 [facility] Serum or plasma chloride claudia surement (moles/volume)Ordered By: Kendra Persaud on 09-14-2021 Chloride [Moles/Vol] 105 mmol/L 95-114 [facility] Serum or plasma glucose donaldo urement (mass/volume)Ordered [...] on 09-14-2021 Potassium [Moles/Vol] 3.1 mmol/L 3.5-5.1 [facility] Serum or plasma sodium measu rement (moles/volume)Ordered By: Kendra Persaud on 09-14-2021 Sodium [Moles/Vol] 139 mmol/L 136-146 [facility] Serum or plasma total biliru bin measurement (mass/volume)Ordered By: Kendra Persaud on 09-14-2021 Bilirubin [Mass/Vol] 0.5 mg/dL 0.3-1.2 [facility] Serum or plasma total carbon dioxide measurement (moles/volume)Ordered By: Kendra Persaud on 09-14-2021 CO2 [Moles/Vol] 23.7 mmol/L 22.0-30.[address] [facility] Serum or plasma urea nitroge n measurement (mass/volume)Ordered By: Kendra Persaud on 09-14-2021 Urea nitrogen [Mass/Vol] 4 mg/dL 9-[address] [facility] Specific gravity Auto test s trip (U) [Rel density]Ordered By: Kendra Persaud on 09-14-2021 Specific gravity (U) [Rel density] 1.004 1.001-1.[address] [facility] Urine clarity by refractomet ry automatedOrdered By: Kendra Persaud on 09-14-2021 Clarity Refractometry automated (U) Clear Clear [facility] Urine glucose measurement by automated test strip (mass/volume)Ordered By: Kendra Persaud on 09-14-2021 Glucose Auto test strip (U) [Mass/Vol] Normal mg/dL Normal [facility] Urine hemoglobin detection b y automated test stripOrdered By: Kendra Persaud on 09-14-2021 Hemoglobin Auto test strip Ql (U) Negative Negative [facility] Urine leukocyte esterase det ection by automated test stripOrdered By: Kendra Persaud on 09-14-2021 Leukocyte esterase Auto test strip Ql (U) Negative Negative [facility] Urobilinogen Auto test strip (U) [Mass/Vol]Ordered By: Kendra Persaud on 09-14-2021 Urobilinogen (U) [Mass/Vol] Normal mg/dL Normal [facility] pH Auto test strip (U)Ordere d By: Kendra Persaud on 09-14-2021 pH (U) 6.5 [pH] 5.0-9.[address] [facility] Basophils Auto (Bld) [#/Vol] Ordered By: Augustus Santiago on 07-04-2021 Basophils (Bld) [#/Vol] 0.1 10*3/uL 0.0-0.[address] [facility] Basophils/100 WBC Auto (Bld) Ordered By: Augustus Santiago on 07-04-2021 Basophils/100 WBC (Bld) 0.9 % [facility] Blood hemoglobin measurement (mass/volume)Ordered By: Augustus Santiago on 07-04-2021 Hemoglobin (Bld) [Mass/Vol] 10.2 g/dL 11.8-15.[address] [facility] Blood leukocytes automated c ount (number/volume)Ordered By: Augustus Santiago on 07-04-2021 WBC (Bld) [#/Vol] 6.6 10*3/uL 4.5-11.0 [facility] CT biopsyOrdered By: Augustus powell on 07-04-2021 Transferrin [Mass/Vol] 360 mg/dL 180-380 [facility] Creatinine and Glomerular fi ltration rate.predicted panel (S/P/Bld)Ordered By: Augustus Santiago on 07-04-2021 Creatinine [Mass/Vol] 0.69 mg/dL 0.44-1.03 [facility] Eosinophils Auto (Bld) [#/Vo l]Ordered By: Augustus Santiago on 07-04-2021 Eosinophils (Bld) [#/Vol] 0.1 10*3/uL 0.0-0.[address] [facility] Eosinophils/100 WBC Auto (Bl d)Ordered By: Augustus Santiago on 07-04-2021 Eosinophils/100 WBC (Bld) 1.2 % [facility] Erythrocyte distribution wid th Auto (RBC) [Ratio]Ordered By: Augustus Santiago on 07-04-2021 Erythrocyte distribution width (RBC) [Ratio] 17.2 % 11.9-15.[address] [facility] Estimated glomerular filtrat ion rate (GFR) non- AmericanOrdered By: Augustus Santiago on 07-04-2021 GFR/1.73 sq M.predicted among non-blacks MDRD (S/P/Bld) [Vol rate/Area] > 60 mL/Min [facility] Hematocrit Auto (Bld) [Volum e fraction]Ordered By: Augustus Santiago on 07-04-2021 Hematocrit (Bld) [Volume fraction] 32.0 % 34.0-46.[address] [facility] Iron [Mass/volume] in Serum or PlasmaOrdered By: Augustus Santiago on 07-04-2021 Iron [Mass/Vol] 10 ug/dL 40-[address] [facility] Iron binding capacity [Mass/ volume] in Serum or PlasmaOrdered By: Augustus Santiago on 07-04-2021 Iron binding capacity [Mass/Vol] 504 ug/dL 255-[address] [facility] Iron saturation [Mass Fracti on] in Serum or PlasmaOrdered By: Augustus Santiago on 07-04-2021 Iron saturation [Mass fraction] 1.0 % 20-[address] [facility] Laboratory - Hematology and Cell countsOrdered By: Augustus Santiago on 07-04-2021 Nucleated RBC/100 WBC (Bld) [Ratio] 0.0 % 0-0.[address] [facility] Lymphocytes Auto (Bld) [#/Vo l]Ordered By: Augustus Santiago on 07-04-2021 Lymphocytes (Bld) [#/Vol] 1.9 10*3/uL 1.00-4.[address] [facility] Lymphocytes/100 WBC Auto (Bl d)Ordered By: Augustus Santiago on 07-04-2021 Lymphocytes/100 WBC (Bld) 28.4 % [facility] MCH Auto (RBC) [Entitic mass ]Ordered By: Augustus Santiago on 07-04-2021 MCH (RBC) [Entitic mass] 22.7 pg 24.7-34.[address] [facility] MCHC Auto (RBC) [Mass/Vol]Or dered By: Augustus Santiago on 07-04-2021 MCHC (RBC) [Mass/Vol] 31.9 g/dL 32.0-35.0 [facility] MCV Auto (RBC) [Entitic vol] Ordered By: Augustus Santiago on 07-04-2021 MCV (RBC) [Entitic vol] 71.3 fL 80-100 [facility] Monocytes Auto (Bld) [#/Vol] Ordered By: Augustus Santiago on 07-04-2021 Monocytes (Bld) [#/Vol] 0.5 10*3/uL 0.0-0.[address] [facility] Monocytes/100 WBC Auto (Bld) Ordered By: Augustus Santiago on 07-04-2021 Monocytes/100 WBC (Bld) 7.6 % [facility] Neutrophils Auto (Bld) [#/Vo l]Ordered By: Augustus Santiago on 07-04-2021 Neutrophils (Bld) [#/Vol] 4.1 10*3/uL 1.8-7.[address] [facility] Neutrophils/100 WBC Auto (Bl d)Ordered By: Augustus Santiago on 07-04-2021 Neutrophils/100 WBC (Bld) 61.9 % [facility] No Panel InformationOrdered By: Augustus Santiago on 07-04-2021 D-Dimer Quantitative (PE/DVT) < 200 ng/mL 0-[address] [facility] Comment on above: The reference range [...] GFR () > 60 mL/Min [facility] Comment on above: GFR estimated refere nce range: According to KDOQI guidelines, <60 ml/min/1.73m2 is sufficient to diagnose a patient with chronic kidney disease. Pharmacy Creatinine Clearance (Chem N/A [facility] Platelet mean volume Auto (B ld) [Entitic vol]Ordered By: Augustus Santiago on 07-04-2021 Platelet mean volume (Bld) [Entitic vol] 7.9 fL 6.3-10.[address] [facility] Platelets Auto (Bld) [#/Vol] Ordered By: Augustus Santiago on 07-04-2021 Platelets (Bld) [#/Vol] 457 10*3/uL 150-[address] [facility] RBC Auto (Bld) [#/Vol]Ordere d By: Augustus Santiago on 07-04-2021 RBC (Bld) [#/Vol] 4.48 10*6/uL 3.60-5.00 [facility] Serum or plasma calcium donaldo urement (mass/volume)Ordered By: Augustus Santiago on 07-04-2021 Calcium [Mass/Vol] 8.9 mg/dL 8.2-10.2 [facility] Serum or plasma chloride claudia surement (moles/volume)Ordered By: Augustus Santiago on 07-04-2021 Chloride [Moles/Vol] 105 mmol/L 95-114 [facility] Serum or plasma glucose donaldo urement (mass/volume)Ordered [...] on 07-04-2021 Potassium [Moles/Vol] 3.5 mmol/L 3.5-5.1 [facility] Serum or plasma sodium measu rement (moles/volume)Ordered By: Augustus Santiago on 07-04-2021 Sodium [Moles/Vol] 136 mmol/L 136-146 [facility] Serum or plasma total carbon dioxide measurement (moles/volume)Ordered By: Augustus Santiago on 07-04-2021 CO2 [Moles/Vol] 23.0 mmol/L 22.0-30.[address] [facility] Serum or plasma urea nitroge n measurement (mass/volume)Ordered By: Augustus Santiago on 07-04-2021 Urea nitrogen [Mass/Vol] 5 mg/dL 9-[address] [facility] Cardiac Stress Teston 2020 Cardiac Stress Test [address], Suite [facility] [place], [place] [address] TRANSTHORACIC ECHOCARDIOGRAM REPORT Patient Name: ANTONIA Alfredo Physician: [id number] Raphael Alas MD Study Date: 08/06/2020 Referring Physician: [id number] ANNA CANTU MRN/PID: [id number] PCP: Jennifer Duran Accession/Order#: [id number] Department Location: [facility] Date of : 1985 Fellow: Gender: F Nurse: Admit Date: Cattle Rancher: Josephine Newton RDCS, RVT Height: 165.10 cm CC Report to: Weight: 88.00 kg Study Type: Echocardiogram BSA: 1.95 m2 Diagnosis/ICD: R06.00-Dyspnea, unspecified; R00.0-Tachycardia, unspecified Indication: Obesity, Family History of CAD Procedure/CPT: Echo Complete w Full [id number] Study Detail: The following Echo studies were [...] 0.9 m/s (0.6-0.9m/s) PV Max P.0 mmHg [id number] Raphael Alas MD Electronically signed on 08/07/2020 at 4:26:59 PM Final Normal [facility] Vital Signs Date Time Vital Sign Value Performing Clinician Facility 08-10-2024 22:41-0500 Diastolic blood pressure 82 mm[Hg] Jignesh Dmuont [facility] 08-10-2024 22:41-0500 Heart rate 97 /min Jignesh Dumont [facility] 08-10-2024 22:41-0500 Respiratory rate 18 /min Jigneshjeannette Dumont [facility] 08-10-2024 22:41-0500 SaO2% (BldA) [Mass fraction] 98 % Jignesh Dumont [facility] 08-10-2024 22:41-0500 Systolic blood pressure 137 mm[Hg] Jignesh Dumont [facility] 08-10-2024 19:53-0500 Body temperature 98.06 [degF] Jignesh Dumont [facility] 08-10-2024 19:53-0500 Diastolic blood pressure 94 mm[Hg] Jignesh Dumont [facility] 08-10-2024 19:53-0500 Heart rate 126 /min Jignesh Dumont [facility] 08-10-2024 19:53-0500 Respiratory rate 20 /min Jignesh Dumont [facility] 08-10-2024 19:53-0500 SaO2% (BldA) [Mass fraction] 99 % Jignesh Dumont [facility] 08-10-2024 19:53-0500 Systolic blood pressure 147 mm[Hg] Jignesh Dumont [facility] 08-05-2024 18:03-0500 Diastolic blood pressure 80 mm[Hg] Dimitri Vuong [facility] 08-05-2024 18:03-0500 Heart rate 92 /min Dimitri Vuong [facility] 08-05-2024 18:03-0500 Respiratory rate 20 /min Dimitri Vuong [facility] 08-05-2024 18:03-0500 SaO2% (BldA) [Mass fraction] 100 % Dimitri Vuong [facility] 08-05-2024 18:03-0500 Systolic blood pressure 129 mm[Hg] Dimitri Vuong [facility] 08-05-2024 11:12-0500 Body temperature 97.52 [degF] Dimitri Vuong [facility] 08-05-2024 11:12-0500 Diastolic blood pressure 72 mm[Hg] Dimitri Vuong [facility] 08-05-2024 11:12-0500 Heart rate 114 /min Dimitri Vuong [facility] 08-05-2024 11:12-0500 Respiratory rate 20 /min Dimitri Vuong [facility] 08-05-2024 11:12-0500 SaO2% (BldA) [Mass fraction] 100 % Dimitri Vuong [facility] 08-05-2024 11:12-0500 Systolic blood pressure 134 mm[Hg] Dimitri Vuong [facility] 08-02-2024 18:54-0500 Diastolic blood pressure 84 mm[Hg] [facility] 08-02-2024 18:54-0500 Mean blood pressure 99 mm[Hg] [facility] 08-02-2024 18:54-0500 Respiratory rate 18 /min [facility] 08-02-2024 18:54-0500 SaO2% (BldA) [Mass fraction] 99 % [facility] 08-02-2024 18:54-0500 Systolic blood pressure 129 mm[Hg] [facility] 08-02-2024 18:53-0500 Diastolic blood pressure 84 mm[Hg] [facility] 08-02-2024 18:53-0500 Heart rate 114 /min [facility] 08-02-2024 18:53-0500 Respiratory rate 16 /min [facility] 08-02-2024 18:53-0500 SaO2% (BldA) [Mass fraction] 98 % [facility] 08-02-2024 18:53-0500 Systolic blood pressure 129 mm[Hg] [facility] 08-02-2024 14:44-0500 Body temperature 98.06 [degF] [facility] 08-02-2024 14:44-0500 Diastolic blood pressure 92 mm[Hg] [facility] 08-02-2024 14:44-0500 Heart rate 108 /min [facility] 08-02-2024 14:44-0500 Respiratory rate 18 /min [facility] 08-02-2024 14:44-0500 SaO2% (BldA) [Mass fraction] 100 % [facility] 08-02-2024 14:44-0500 Systolic blood pressure 162 mm[Hg] [facility] 08-01-2024 19:22-0500 Body temperature 99.39 [degF] Kontsantin Jain MD Work Phone: [facility] 08-01-2024 19:22-0500 Diastolic blood pressure 83 mm[Hg] Konstantin Jain MD Work Phone: [facility] 08-01-2024 19:22-0500 Heart rate 115 /min Konstantin Jain MD Work Phone: [facility] 08-01-2024 19:22-0500 Respiratory rate 16 /min Konstantin Jain MD Work Phone: [facility] 08-01-2024 19:22-0500 SaO2% (BldA) [Mass fraction] 100 % Konstantin Jain MD Work Phone: [facility] 08-01-2024 19:22-0500 Systolic blood pressure 144 mm[Hg] Konstantin Jain MD Work Phone: [facility] 07-29-2024 19:10-0500 Body height 165.1 cm Rose Hardy MD Work Phone: [employer] 07-29-2024 19:10-0500 Body mass index (BMI) [Ratio] 32.45 kg/m2 Rose Hardy MD Work Phone: [facility] 07-29-2024 19:10-0500 Body temperature 98.29 [degF] Rose Hrady MD Work Phone: [facility] 07-29-2024 19:10-0500 Body weight 88.45 kg Rose Hardy MD Work Phone: [facility] 07-29-2024 19:10-0500 Diastolic blood pressure 101 mm[Hg] Rose Hardy MD Work Phone: [facility] 07-29-2024 19:10-0500 Heart rate 128 /min Rose Hardy MD Work Phone: [facility] 07-29-2024 19:10-0500 Respiratory rate 18 /min Rose Hardy MD Work Phone: [facility] 07-29-2024 19:10-0500 SaO2% (BldA) [Mass fraction] 99 % Rose Hardy MD Work Phone: [facility] 07-29-2024 19:10-0500 Systolic blood pressure 139 mm[Hg] Rose Hardy MD Work Phone: [facility] 07-14-2024 19:20-0500 Diastolic blood pressure 74 mm[Hg] Donya Romano MD Work Phone: [facility] [employer] [facility] 07-14-2024 19:20-0500 Heart rate 118 /min Donya Romano MD Work Phone: [facility] 07-14-2024 19:20-0500 Respiratory rate 18 /min Donya Romano MD Work Phone: [facility] 07-14-2024 19:20-0500 SaO2% (BldA) [Mass fraction] 100 % Donya Romano MD Work Phone: [facility] 07-14-2024 19:20-0500 Systolic blood pressure 146 mm[Hg] Donya Romano MD Work Phone: [facility] 07-14-2024 18:23-0500 Body temperature 98.8 [degF] [facility] 07-11-2024 23:12-0500 Diastolic blood pressure 105 mm[Hg] Shalonda Bacon MD Work Phone: [facility] 07-11-2024 23:12-0500 Heart rate 125 /min Shalonda Bacon MD Work Phone: [facility] 07-11-2024 23:12-0500 Respiratory rate 18 /min Shalonda Bacon MD Work Phone: [facility] 07-11-2024 23:12-0500 Systolic blood pressure 147 mm[Hg] Shalonda Bacon MD Work Phone: [facility] 07-11-2024 22:45-0500 Body temperature 97.3 [degF] Shalonda Bacon MD Work Phone: [facility] 07-11-2024 22:45-0500 SaO2% (BldA) [Mass fraction] 100 % Shalonda Bacon MD Work Phone: [facility] 06-28-2024 01:00-0500 Diastolic blood pressure 134 mm[Hg] Kaylinn Dokken [facility] 06-28-2024 01:00-0500 Heart rate 119 /min Kaylinn Dokken [facility] 06-28-2024 01:00-0500 Mean blood pressure 142 mm[Hg] Kaylinn Dokken [facility] 06-28-2024 01:00-0500 SaO2% (BldA) [Mass fraction] 95 % Kaylinn Dokken [facility] 06-28-2024 01:00-0500 Systolic blood pressure 157 mm[Hg] Kaylinn Dokken [facility] 06-28-2024 00:00-0500 Diastolic blood pressure 98 mm[Hg] Kaylinn Dokken [facility] 06-28-2024 00:00-0500 Heart rate 137 /min Kaylinn Dokken [facility] 06-28-2024 00:00-0500 Mean blood pressure 121 mm[Hg] Kaylinn Dokken [facility] 06-28-2024 00:00-0500 Systolic blood pressure 168 mm[Hg] Kaylinn Dokken [facility] 06-27-2024 22:12-0500 Body temperature 97.34 [degF] Kaylinn Dokken [facility] 06-27-2024 22:12-0500 Diastolic blood pressure 85 mm[Hg] Kaylinn Dokken [facility] 06-27-2024 22:12-0500 Heart rate 125 /min Kaylinn Dokken [facility] 06-27-2024 22:12-0500 Respiratory rate 20 /min Jordyn Willett [facility] 06-27-2024 22:12-0500 SaO2% (BldA) [Mass fraction] 100 % Jordyn Willett [facility] 06-27-2024 22:12-0500 Systolic blood pressure 133 mm[Hg] Jordyn Willett [facility] 06-27-2024 15:15-0500 Diastolic blood pressure 85 mm[Hg] Randee Richardson MD Work Phone: [facility] 06-27-2024 15:15-0500 SaO2% (BldA) [Mass fraction] 97 % Randee Richardson MD Work Phone: [facility] 06-27-2024 15:15-0500 Systolic blood pressure 129 mm[Hg] Randee Richardson MD Work Phone: [facility] 06-27-2024 13:28-0500 Body mass index (BMI) [Ratio] 30.79 kg/m2 Randee Richardson MD Work Phone: [facility] 06-27-2024 13:28-0500 Body temperature 97.7 [degF] Randee Richardson MD Work Phone: [facility] 06-27-2024 13:28-0500 Body weight 83.92 kg Randee Richardson MD Work Phone: [facility] 06-27-2024 13:28-0500 Heart rate 103 /min Randee Richardson MD Work Phone: [facility] 06-27-2024 13:28-0500 Respiratory rate 16 /min Randee Richardson MD Work Phone: [facility] 06-25-2024 01:00-0500 Diastolic blood pressure 90 mm[Hg] Ritesh Ivana [facility] 06-25-2024 01:00-0500 Heart rate 128 /min Ritesh Ivana [facility] 06-25-2024 01:00-0500 Mean blood pressure 105 mm[Hg] Ritesh Ivana [facility] 06-25-2024 01:00-0500 SaO2% (BldA) [Mass fraction] 97 % Ritesh Ivana [facility] 06-25-2024 01:00-0500 Systolic blood pressure 135 mm[Hg] Ritesh Ivana [facility] 06-25-2024 00:30-0500 Diastolic blood pressure 85 mm[Hg] Ritesh Ivana [facility] 06-25-2024 00:30-0500 Heart rate 124 /min Ritesh Ivana [facility] 06-25-2024 00:30-0500 Mean blood pressure 96 mm[Hg] Ritesh Ivana [facility] 06-25-2024 00:30-0500 Respiratory rate 20 /min Ritesh Ivana [facility] 06-25-2024 00:30-0500 SaO2% (BldA) [Mass fraction] 100 % Ritesh Ivana [facility] 06-25-2024 00:30-0500 Systolic blood pressure 118 mm[Hg] Ritesh Ivana [facility] 06-24-2024 23:35-0500 Diastolic blood pressure 97 mm[Hg] Ritesh Ivana [facility] 06-24-2024 23:35-0500 Heart rate 121 /min Ritesh Ivana [facility] 06-24-2024 23:35-0500 Mean blood pressure 110 mm[Hg] Ritesh Ivana [facility] 06-24-2024 23:35-0500 SaO2% (BldA) [Mass fraction] 100 % Ritesh Ivana [facility] 06-24-2024 23:35-0500 Systolic blood pressure 136 mm[Hg] Ritesh Ivana [facility] 06-24-2024 19:30-0500 Body temperature 97.7 [degF] Ritesh Ivana [facility] 06-24-2024 19:30-0500 Heart rate 147 /min Ritesh Ivana [facility] 03-23-2024 12:03-0400 Body mass index (BMI) [Ratio] 32.5 kg/m2 [facility] 03-23-2024 12:03-0400 Body temperature 97.9 [degF] [facility] 03-23-2024 12:03-0400 Body weight 88.9 kg [facility] 03-23-2024 12:03-0400 Diastolic blood pressure 64 mm[Hg] [facility] 03-23-2024 12:03-0400 Heart rate 91 /min [facility] 03-23-2024 12:03-0400 SaO2% (BldA) [Mass fraction] 98 % [facility] 03-23-2024 12:03-0400 Systolic blood pressure 102 mm[Hg] [facility] 03-23-2024 08:40-0400 Body height 165.1 cm [facility] 03-03-2024 15:27-0400 Body temperature 98.71 [degF] Davi [facility]ivas DO [facility] 03-03-2024 15:27-0400 Diastolic blood pressure 84 mm[Hg] Davi Pay DO Work Phone: [facility] [employer] 03-03-2024 15:27-0400 Heart rate 115 /min [facility]i Pay DO [facility] 03-03-2024 15:27-0400 Respiratory rate 18 /min Davi Pay DO Work Phone: [facility] [employer] [facility] 03-03-2024 15:27-0400 SaO2% (BldA) [Mass fraction] 97 % Davi Pay DO [facility] 03-03-2024 15:27-0400 Systolic blood pressure 164 mm[Hg] Davi Pay DO Work Phone: [facility] 02-24-2024 20:29-0400 Body height 165.1 cm Ashley Delcid MD Work Phone: [facility] [employer] [facility] 02-24-2024 20:29-0400 Body temperature 98.01 [degF] Ashley Delcid MD Work Phone: [facility] [employer] [facility] 02-24-2024 20:29-0400 Diastolic blood pressure 72 mm[Hg] Ashley Delcid MD Work Phone: [facility] [employer] [facility] 02-24-2024 20:29-0400 Heart rate 94 /min Ashley Delcid MD Work Phone: [facility] [employer] [facility] 02-24-2024 20:29-0400 Respiratory rate 20 /min Ashley Delcid MD Work Phone: [facility] 02-24-2024 20:29-0400 SaO2% (BldA) [Mass fraction] 99 % Ashley Delcid MD Work Phone: [facility] [employer] [facility] 02-24-2024 20:29-0400 Systolic blood pressure 129 mm[Hg] Ashley Delcid MD Work Phone: [facility] [employer] [facility] 02-16-2024 16:47-0400 Diastolic blood pressure 68 mm[Hg] Jennifer Moore MD Work Phone: [facility] 02-16-2024 16:47-0400 Heart rate 99 /min Jennifer Moore MD Work Phone: [facility] 02-16-2024 16:47-0400 SaO2% (BldA) [Mass fraction] 96 % Jennifer Moore MD Work Phone: [facility] 02-16-2024 16:47-0400 Systolic blood pressure 115 mm[Hg] Jennifer Moore MD Work Phone: [facility] 02-16-2024 16:38-0400 Respiratory rate 18 /min Jennifer Moore MD Work Phone: [facility] 02-16-2024 13:28-0400 Body temperature 98.29 [degF] Jennifer Moore MD Work Phone: [facility] 02-13-2024 00:26-0400 Body temperature 98.24 [degF] Ritesh Ivana [facility] 02-13-2024 00:26-0400 Diastolic blood pressure 72 mm[Hg] Ritesh Ivana [facility] 02-13-2024 00:26-0400 Heart rate 86 /min Ritesh Ivana [facility] 02-13-2024 00:26-0400 Respiratory rate 16 /min Ritesh Ivana [facility] 02-13-2024 00:26-0400 SaO2% (BldA) [Mass fraction] 100 % Ritesh Ivana [facility] 02-13-2024 00:26-0400 Systolic blood pressure 109 mm[Hg] Ritesh Ivana [facility] 01-22-2024 12:13-0400 Body height 165.1 cm Eren Camejo DO Work Phone: [facility] 01-22-2024 12:13-0400 Body mass index (BMI) [Ratio] 29.95 kg/m2 Eren Camejo DO Work Phone: [facility] [place] 01-22-2024 12:13-0400 Body temperature 98.71 [degF] Eren Camejo DO Work Phone: [facility] [place] 01-22-2024 12:13-0400 Body weight 81.65 kg Eren Camejo DO Work Phone: [facility] [place] 01-22-2024 12:13-0400 Diastolic blood pressure 92 mm[Hg] Eren Camejo DO Work Phone: [facility] [place] 01-22-2024 12:13-0400 Heart rate 109 /min Eren Camejo DO Work Phone: [facility] [place] 01-22-2024 12:13-0400 Respiratory rate 18 /min Eren Camejo DO Work Phone: [facility] [place] 01-22-2024 12:13-0400 SaO2% (BldA) [Mass fraction] 100 % Eren Camejo DO Work Phone: [facility] [place] 01-22-2024 12:13-0400 Systolic blood pressure 152 mm[Hg] Eren Camejo DO Work Phone: [facility] [place] 01-19-2024 11:18-0400 Body height 165.1 cm DO Jennifer Duran Work Phone: [facility] 01-19-2024 11:18-0400 Body mass index (BMI) [Ratio] 31.9 kg/m2 DO Jennifer Duran Work Phone: [facility] 01-19-2024 11:18-0400 Body temperature 98.2 [degF] DO Jennifer Duran Work Phone: [facility] 01-19-2024 11:18-0400 Body weight 87.08 kg DO Jennifer Duran Work Phone: [facility] 01-19-2024 11:18-0400 Diastolic blood pressure 82 mm[Hg] DO Jennifer Duran Work Phone: [facility] 01-19-2024 11:18-0400 Heart rate 102 /min DO Jennifer Girivelisse Work Phone: [facility] 01-19-2024 11:18-0400 Respiratory rate 18 /min DO Jennifer Girivelisse Work Phone: [facility] 01-19-2024 11:18-0400 SaO2% (BldA) [Mass fraction] 98 % DO Jennifer Duran Work Phone: [facility] 01-19-2024 11:18-0400 Systolic blood pressure 122 mm[Hg] DO Jennifer Duran Work Phone: [facility] 11-08-2023 14:03-0400 Body height 165.1 cm DO Jennifer Duran Work Phone: [facility] 11-08-2023 14:03-0400 Body temperature 98.1 [degF] DO Jennifer Duran Work Phone: [facility] 11-08-2023 14:03-0400 Body weight 82.85 kg DO Jennifer Duran Work Phone: [facility] 11-08-2023 14:03-0400 Diastolic blood pressure 77 mm[Hg] DO Jennifer Duran Work Phone: [facility] 11-08-2023 14:03-0400 Heart rate 86 /min DO Jennifer Duran Work Phone: [facility] 11-08-2023 14:03-0400 Respiratory rate 16 /min DO Jennifer Duran Work Phone: [facility] 11-08-2023 14:03-0400 SaO2% (BldA) [Mass fraction] 100 % DO Jennifer Duran Work Phone: [facility] 11-08-2023 14:03-0400 Systolic blood pressure 142 mm[Hg] DO Jennifer Duran Work Phone: [facility] 11-08-2023 11:56-0400 Body height 165.1 cm Eren Camejo DO Work Phone: [facility] 11-08-2023 11:56-0400 Body mass index (BMI) [Ratio] 30.45 kg/m2 Eren Camejo DO Work Phone: [facility] 11-08-2023 11:56-0400 Body temperature 97.81 [degF] Eren Camejo DO Work Phone: [facility] 11-08-2023 11:56-0400 Body weight 83.01 kg Eren Camejo DO Work Phone: [facility] 11-08-2023 11:56-0400 Diastolic blood pressure 86 mm[Hg] Eren Camejo DO Work Phone: [facility] 11-08-2023 11:56-0400 Heart rate 100 /min Eren Camejo DO Work Phone: [facility] 11-08-2023 11:56-0400 Respiratory rate 18 /min Eren Camejo DO Work Phone: [facility] 11-08-2023 11:56-0400 SaO2% (BldA) [Mass fraction] 99 % Eren Camejo DO Work Phone: [facility] 11-08-2023 11:56-0400 Systolic blood pressure 133 mm[Hg] Eren Camejo DO Work Phone: [facility] [employer] 09-30-2023 02:09-0400 Diastolic blood pressure 89 mm[Hg] Ritesh Ivana [facility] 09-30-2023 02:09-0400 Heart rate 124 /min Ritesh Ivana [facility] 09-30-2023 02:09-0400 Mean blood pressure 109 mm[Hg] Ritesh Ivana [facility] 09-30-2023 02:09-0400 Respiratory rate 20 /min RiteshStartersFundner [facility] 09-30-2023 02:09-0400 SaO2% (BldA) [Mass fraction] 98 % Ritesh Ivana [facility] 09-30-2023 02:09-0400 Systolic blood pressure 149 mm[Hg] Ritesh Ivana [facility] 09-30-2023 01:00-0400 Diastolic blood pressure 82 mm[Hg] Ritesh Ivana [facility] 09-30-2023 01:00-0400 Heart rate 118 /min Ritesh Ivana [facility] 09-30-2023 01:00-0400 Mean blood pressure 104 mm[Hg] Ritesh Ivana [facility] 09-30-2023 01:00-0400 SaO2% (BldA) [Mass fraction] 99 % Rtiesh Ivana [facility] 09-30-2023 01:00-0400 Systolic blood pressure 147 mm[Hg] Ritesh Ivana [facility] 09-29-2023 23:40-0400 Body temperature 97.7 [degF] Ritesh Ivana [facility] 09-29-2023 23:40-0400 Diastolic blood pressure 92 mm[Hg] Ritesh Ivana [facility] 09-29-2023 23:40-0400 Heart rate 139 /min Ritesh Ivana [facility] 09-29-2023 23:40-0400 Respiratory rate 20 /min Ritesh Ivana [facility] 09-29-2023 23:40-0400 SaO2% (BldA) [Mass fraction] 100 % Ritesh Ivana [facility] 09-29-2023 23:40-0400 Systolic blood pressure 144 mm[Hg] Ritesh Heath [facility] 09-26-2023 18:00-0400 Heart rate 119 /min Konstantin Penny [facility] 09-26-2023 18:00-0400 SaO2% (BldA) [Mass fraction] 96 % Konstantin Warde [facility] 09-26-2023 17:30-0400 Diastolic blood pressure 124 mm[Hg] Konstantin Zohaib [facility] 09-26-2023 17:30-0400 Heart rate 105 /min Konstantin Warde [facility] 09-26-2023 17:30-0400 Mean blood pressure 129 mm[Hg] Konstantin Warde [facility] 09-26-2023 17:30-0400 SaO2% (BldA) [Mass fraction] 100 % Konstantin Warde [facility] 09-26-2023 17:30-0400 Systolic blood pressure 139 mm[Hg] Konstantin Warde [facility] 09-26-2023 16:48-0400 Diastolic blood pressure 82 mm[Hg] Konstantin Warde [facility] 09-26-2023 16:48-0400 Heart rate 126 /min Konstantin Zohaib [facility] 09-26-2023 16:48-0400 Mean blood pressure 101 mm[Hg] Konstantin Warde [facility] 09-26-2023 16:48-0400 Respiratory rate 18 /min Konstantin Warde [facility] 09-26-2023 16:48-0400 SaO2% (BldA) [Mass fraction] 100 % Konstantin Penny [facility] 09-26-2023 16:48-0400 Systolic blood pressure 139 mm[Hg] Konstantin Penny [facility] 09-26-2023 16:30-0400 Diastolic blood pressure 96 mm[Hg] Konstantin Penny [facility] 09-26-2023 16:30-0400 Mean blood pressure 105 mm[Hg] Konstantin Penny [facility] 09-26-2023 16:30-0400 Respiratory rate 18 /min Konstantin Penny [facility] 09-26-2023 16:30-0400 Systolic blood pressure 122 mm[Hg] Konstantin Penny [facility] 09-26-2023 14:45-0400 Respiratory rate 18 /min Konstantin Penny [facility] 09-26-2023 14:13-0400 Body temperature 98.6 [degF] Konstantin Penny [facility] 07-31-2023 18:01-0500 Diastolic blood pressure 87 mm[Hg] Jignesh Dumont [facility] 07-31-2023 18:01-0500 Heart rate 121 /min Jignesh Tim [facility] 07-31-2023 18:01-0500 Mean blood pressure 99 mm[Hg] Jignesh Tim [facility] 07-31-2023 18:01-0500 Respiratory rate 16 /min Jignesh Tim [facility] 07-31-2023 18:01-0500 SaO2% (BldA) [Mass fraction] 99 % Jignesh Tim [facility] 07-31-2023 18:01-0500 Systolic blood pressure 123 mm[Hg] Jignesh Tim [facility] 07-31-2023 17:00-0500 Diastolic blood pressure 77 mm[Hg] Jignesh Tim [facility] 07-31-2023 17:00-0500 Heart rate 96 /min Jignesh Tim [facility] 07-31-2023 17:00-0500 Mean blood pressure 92 mm[Hg] Jignesh Tim [facility] 07-31-2023 17:00-0500 Systolic blood pressure 122 mm[Hg] Jignesh Tim [facility] 07-31-2023 16:07-0500 Diastolic blood pressure 90 mm[Hg] Jignesh Tim [facility] 07-31-2023 16:07-0500 Heart rate 117 /min Jignesh Tim [facility] 07-31-2023 16:07-0500 Mean blood pressure 105 mm[Hg] Jignesh Tim [facility] 07-31-2023 16:07-0500 Respiratory rate 19 /min Jignesh Tim [facility] 07-31-2023 16:07-0500 SaO2% (BldA) [Mass fraction] 100 % Jignesh Tim [facility] 07-31-2023 16:07-0500 Systolic blood pressure 135 mm[Hg] Jignesh Tim [facility] 07-31-2023 16:06-0500 Respiratory rate 18 /min Jignesh Tim [facility] 07-31-2023 15:34-0500 Body temperature 97.88 [degF] Jignesh Tim [facility] 07-31-2023 15:34-0500 Heart rate 136 /min Jignesh Dumont [facility] 07-31-2023 15:34-0500 Respiratory rate 18 /min Jignesh Dumont [facility] 07-19-2023 12:40-0500 Body height 165.1 cm Jennifer Duran Other [facility] [employer] [facility] 04-30-2023 18:19-0500 Diastolic blood pressure 82 mm[Hg] DO Jennifer Enochivelisse Work Phone: [facility] 04-30-2023 18:19-0500 Heart rate 128 /min DO Jennifer Duran Work Phone: [facility] 04-30-2023 18:19-0500 Respiratory rate 18 /min DO Jennifer Duran Work Phone: [facility] 04-30-2023 18:19-0500 SaO2% (BldA) [Mass fraction] 99 % DO Jennifer Duran Work Phone: [facility] 04-30-2023 18:19-0500 Systolic blood pressure 116 mm[Hg] DO Jennifer Duran Work Phone: [facility] 04-30-2023 16:43-0500 Body height 165.1 cm DO Jennifer Duran Work Phone: [facility] 04-30-2023 16:43-0500 Body temperature 98.1 [degF] DO Jennifer Duran Work Phone: [facility] 04-30-2023 16:43-0500 Body weight 62.3 kg DO Jennifer Duran Work Phone: [facility] 04-24-2023 15:51-0500 Diastolic blood pressure 81 mm[Hg] Jignesh Dumont [facility] 04-24-2023 15:51-0500 Heart rate 98 /min Jignesh Tim [facility] 04-24-2023 15:51-0500 Mean blood pressure 94 mm[Hg] Jignesh Tim [facility] 04-24-2023 15:51-0500 Respiratory rate 17 /min Jignesh Tim [facility] 04-24-2023 15:51-0500 SaO2% (BldA) [Mass fraction] 99 % Jignesh Tim [facility] 04-24-2023 15:51-0500 Systolic blood pressure 120 mm[Hg] Jignesh Tim [facility] 04-24-2023 15:00-0500 Diastolic blood pressure 72 mm[Hg] Jignesh Tim [facility] 04-24-2023 15:00-0500 Heart rate 85 /min Jignesh Tim [facility] 04-24-2023 15:00-0500 Mean blood pressure 87 mm[Hg] Jignesh Tim [facility] 04-24-2023 15:00-0500 Respiratory rate 16 /min Jignesh Tim [facility] 04-24-2023 15:00-0500 SaO2% (BldA) [Mass fraction] 96 % Jignesh Tim [facility] 04-24-2023 15:00-0500 Systolic blood pressure 117 mm[Hg] Jignesh Tim [facility] 04-24-2023 14:00-0500 Diastolic blood pressure 88 mm[Hg] Jignesh Tim [facility] 04-24-2023 14:00-0500 Heart rate 99 /min Jignesh Tim [facility] 04-24-2023 14:00-0500 Mean blood pressure 100 mm[Hg] Jignesh Dumont [facility] 04-24-2023 14:00-0500 Respiratory rate 18 /min Jignesh Dumont [facility] 04-24-2023 14:00-0500 SaO2% (BldA) [Mass fraction] 97 % Jignesh Dumont [facility] 04-24-2023 14:00-0500 Systolic blood pressure 124 mm[Hg] Jignesh Dumont [facility] 04-24-2023 13:29-0500 Body temperature 99.14 [degF] Jignesh Dumont [facility] 04-24-2023 13:29-0500 Heart rate 118 /min Jignesh Dumont [facility] 04-03-2023 00:20-0400 Diastolic blood pressure 70 mm[Hg] DO Jennifer Duran Work Phone: [facility] 04-03-2023 00:20-0400 Heart rate 80 /min DO Jennifer Duran Work Phone: [facility] 04-03-2023 00:20-0400 SaO2% (BldA) [Mass fraction] 98 % DO Jennifer Duran Work Phone: [facility] 04-03-2023 00:20-0400 Systolic blood pressure 122 mm[Hg] DO Jennifer Duran Work Phone: [facility] 04-02-2023 21:48-0400 Diastolic blood pressure 75 mm[Hg] DO Jennifer Duran Work Phone: [facility] 04-02-2023 21:48-0400 Heart rate 90 /min DO Jennifer Duran Work Phone: [facility] 04-02-2023 21:48-0400 Respiratory rate 20 /min DO Jennifer Duran Work Phone: [facility] 04-02-2023 21:48-0400 SaO2% (BldA) [Mass fraction] 98 % DO Jennifer Duran Work Phone: [facility] 04-02-2023 21:48-0400 Systolic blood pressure 109 mm[Hg] DO Jennifer Duran Work Phone: [facility] 04-02-2023 20:23-0400 Body height 165.1 cm DO Jennifer Duran Work Phone: [facility] 04-02-2023 20:23-0400 Body temperature 98.2 [degF] DO Jennifer Duran Work Phone: [facility] 04-02-2023 20:23-0400 Body weight 81.64 kg DO Jennifer Duran Work Phone: [facility] 03-29-2023 16:11-0400 Body temperature 97.8 [degF] DO Jennifer Duran Work Phone: [facility] 03-29-2023 16:11-0400 Diastolic blood pressure 79 mm[Hg] DO Jennifer Duran Work Phone: [facility] 03-29-2023 16:11-0400 Heart rate 104 /min DO Jennifer Duran Work Phone: [facility] 03-29-2023 16:11-0400 Respiratory rate 16 /min DO Jennifer Duran Work Phone: [facility] 03-29-2023 16:11-0400 SaO2% (BldA) [Mass fraction] 98 % DO Jennifer Duran Work Phone: [facility] 03-29-2023 16:11-0400 Systolic blood pressure 123 mm[Hg] DO Jennifer Duran Work Phone: [facility] 03-29-2023 06:35-0400 Body height 165.1 cm DO Jennifer Duran Work Phone: [facility] 03-29-2023 06:35-0400 Body weight 87.5 kg DO Jennifer Girvin Work Phone: [facility] 03-29-2023 05:41-0400 Diastolic blood pressure 85 mm[Hg] DO Jennifer Girvin Work Phone: [facility] 03-29-2023 05:41-0400 Heart rate 110 /min DO Jennifer Girvin Work Phone: [facility] 03-29-2023 05:41-0400 Respiratory rate 18 /min DO Jennifer Girvin Work Phone: [facility] 03-29-2023 05:41-0400 SaO2% (BldA) [Mass fraction] 100 % DO Jennifer Girvin Work Phone: [facility] 03-29-2023 05:41-0400 Systolic blood pressure 160 mm[Hg] DO Jennifer Girvin Work Phone: [facility] 03-29-2023 01:39-0400 Body height 165.1 cm DO Jennifer Girivelisse Work Phone: [facility] 03-29-2023 01:39-0400 Body temperature 97.2 [degF] DO Jennifer Girivelisse Work Phone: [facility] 03-29-2023 01:39-0400 Body weight 87 kg DO Jennifer Girvin Work Phone: [facility] 02-06-2023 04:00-0400 Diastolic blood pressure 74 mm[Hg] DO Jennifer Girvin Work Phone: [facility] 02-06-2023 04:00-0400 Heart rate 79 /min DO Jennifer Girvin Work Phone: [facility] 02-06-2023 04:00-0400 Respiratory rate 15 /min DO Jennifer Girvin Work Phone: [facility] 02-06-2023 04:00-0400 SaO2% (BldA) [Mass fraction] 99 % DO Jennifer Girvin Work Phone: [facility] 02-06-2023 04:00-0400 Systolic blood pressure 119 mm[Hg] DO Jennifer Duran Work Phone: [facility] 02-05-2023 23:41-0400 Body height 165.1 cm DO Jennifer Duran Work Phone: [facility] 02-05-2023 23:41-0400 Body temperature 98 [degF] DO Jennifer Duran Work Phone: [facility] 02-05-2023 23:41-0400 Body weight 81.64 kg DO Jennifer Duran Work Phone: [facility] 01-12-2023 14:40-0400 Body height 165.1 cm Jennifer Duran Other [facility] Other 01-12-2023 14:40-0400 Body mass index (BMI) [Ratio] 33.44 kg/m2 Jennifer Duran Other [facility] Other 01-12-2023 14:40-0400 Body temperature 99.5 [degF] Jennifer Duran Other [employer] Other 01-12-2023 14:40-0400 Body weight 91.17 kg Jennifer Duran Other [employer] Other 01-12-2023 14:40-0400 Diastolic blood pressure 78 mm[Hg] Jennifer Duran Other [employer] Other 01-12-2023 14:40-0400 Respiratory rate 18 /min Jennifer Duran Other [employer] Other 01-12-2023 14:40-0400 SaO2% (BldA) [Mass fraction] 97 % Jennifer Duran Other [employer] Other 01-12-2023 14:40-0400 Systolic blood pressure 110 mm[Hg] Jennifer Duran Other [employer] Other 10-11-2022 16:20-0400 Body height 165.1 cm Jennifer Duran Other [employer] Other 07-12-2022 16:20-0500 Body height 165.1 cm Jennifer Duran Other [employer] Other 07-12-2022 16:20-0500 Body mass index (BMI) [Ratio] 31.2 kg/m2 Jennifer Duran Other [facility] Other 07-12-2022 16:20-0500 Body temperature 97.2 [degF] Jennifer Duran Other [facility] Other 07-12-2022 16:20-0500 Body weight 85.05 kg Jennifer Duran Other [facility] Other 07-12-2022 16:20-0500 Diastolic blood pressure 74 mm[Hg] Jennifer Duran Other [employer] Other 07-12-2022 16:20-0500 Respiratory rate 18 /min Jennifer Duran Other [employer] Other 07-12-2022 16:20-0500 SaO2% (BldA) [Mass fraction] 99 % Jennifer Duran Other [employer] Other 07-12-2022 16:20-0500 Systolic blood pressure 106 mm[Hg] Jennifer Duran Other [employer] Other 04-28-2022 04:00-0500 Diastolic blood pressure 70 mm[Hg] DO Jennifer Duran Work Phone: [facility] 04-28-2022 04:00-0500 Heart rate 81 /min DO Jennifer Duran Work Phone: [facility] 04-28-2022 04:00-0500 SaO2% (BldA) [Mass fraction] 96 % DO Jennifer Duran Work Phone: [facility] 04-28-2022 04:00-0500 Systolic blood pressure 110 mm[Hg] DO Jennifer Duran Work Phone: [facility] 04-28-2022 03:56-0500 Body height 165.1 cm DO Jennifer Duran Work Phone: [facility] 04-28-2022 03:56-0500 Body weight 80 kg DO Jennifer Duran Work Phone: [facility] 04-28-2022 03:56-0500 Respiratory rate 18 /min DO Jennifer Duran Work Phone: [facility] 04-28-2022 00:13-0500 Body temperature 97.2 [degF] DO Jennifer Duran Work Phone: [facility] 04-12-2022 15:40-0400 Body height 165.1 cm Jennifer Duran Other [facility] Other 04-12-2022 15:40-0400 Body mass index (BMI) [Ratio] 30.37 kg/m2 Jennifer Duran Other [facility] Other 04-12-2022 15:40-0400 Body temperature 98.8 [degF] Jennifer Duran Other [employer] Other 04-12-2022 15:40-0400 Body weight 82.78 kg Jennifer Duran Other [facility] Other 04-12-2022 15:40-0400 Diastolic blood pressure 76 mm[Hg] Jennifer Duran Other [employer] Other 04-12-2022 15:40-0400 Respiratory rate 18 /min Jennifer Duran Other [employer] Other 04-12-2022 15:40-0400 SaO2% (BldA) [Mass fraction] 98 % Jennifer Duran Other [employer] Other 04-12-2022 15:40-0400 Systolic blood pressure 110 mm[Hg] Jennifer Duran Other [employer] Other 04-09-2022 13:32-0400 Body temperature 97.59 [degF] Chair Lei Work Phone: [facility] 04-09-2022 13:32-0400 Diastolic blood pressure 64 mm[Hg] Chair Luna Work Phone: [facility] 04-09-2022 13:32-0400 Heart rate 114 /min Chair Luna Work Phone: [facility] 04-09-2022 13:32-0400 Respiratory rate 18 /min Chair Lei Work Phone: [facility] 04-09-2022 13:32-0400 SaO2% (BldA) [Mass fraction] 97 % Chair Luna Work Phone: [facility] 04-09-2022 13:32-0400 Systolic blood pressure 116 mm[Hg] Chair Luna Work Phone: [facility] 03-26-2022 13:54-0400 Body temperature 97.9 [degF] Chair Luna Work Phone: [facility] 03-26-2022 13:54-0400 Diastolic blood pressure 75 mm[Hg] Chair Luna Work Phone: [facility] 03-26-2022 13:54-0400 Heart rate 82 /min Chair Lei Work Phone: [facility] 03-26-2022 13:54-0400 Respiratory rate 18 /min Chair Lei Work Phone: [facility] 03-26-2022 13:54-0400 SaO2% (BldA) [Mass fraction] 100 % Chair Lei Work Phone: [facility] 03-26-2022 13:54-0400 Systolic blood pressure 106 mm[Hg] Chair Lei Work Phone: [facility] 03-10-2022 13:54-0400 Body height 165.1 cm Madyson Ni APRN.[employer]STER [employer] Work Phone: [facility] 03-10-2022 13:54-0400 Body temperature 97.9 [degF] Madyson Ni APRN.OYSTER GROWER Work Phone: [facility] 03-10-2022 13:54-0400 Body weight 83.37 kg Madyson Ni APRN.OYSTER GROWER Work Phone: [facility] 03-10-2022 13:54-0400 Diastolic blood pressure 75 mm[Hg] Madyson Ni APRN.OYSTER [employer]OWER Work Phone: [facility] 03-10-2022 13:54-0400 Heart rate 95 /min Madyson Ni APRN.[employer]STER [employer]OWER Work Phone: [facility] 03-10-2022 13:54-0400 Respiratory rate 16 /min Madyson Ni APRN.[employer]STER GROWER Work Phone: [facility] 03-10-2022 13:54-0400 SaO2% (BldA) [Mass fraction] 100 % Madyson Ni APRN.[employer]STER [employer]OWER Work Phone: [facility] 03-10-2022 13:54-0400 Systolic blood pressure 130 mm[Hg] Madyson Ni APRN.[employer]STER [employer]OWER Work Phone: [facility] 12-04-2021 12:49-0400 Blood Pressure Location Yamilka Lorenzo [facility] 12-04-2021 12:49-0400 Body temperature 98.42 [degF] Yamilka Orzech [facility] 12-04-2021 12:49-0400 Diastolic blood pressure 82 mm[Hg] Yamilka Orzech [facility] 12-04-2021 12:49-0400 Heart rate 110 /min Yamilka Orzech [facility] 12-04-2021 12:49-0400 SaO2% (BldA) [Mass fraction] 99 % Yamilka Orzech [facility] 12-04-2021 12:49-0400 Systolic blood pressure 126 mm[Hg] Yamilka Orzech [facility] 10-16-2021 09:10-0400 Body height 165.1 cm Jennifer Duran Other [facility] Other 09-14-2021 19:31-0400 Diastolic blood pressure 82 mm[Hg] DO Jennifer Duran Work Phone: [facility] 09-14-2021 19:31-0400 Heart rate 87 /min DO Jennifer Duran Work Phone: [facility] 09-14-2021 19:31-0400 Respiratory rate 18 /min DO Jennifer Duran Work Phone: [facility] 09-14-2021 19:31-0400 SaO2% (BldA) [Mass fraction] 99 % DO Jennifer Duran Work Phone: [facility] 09-14-2021 19:31-0400 Systolic blood pressure 126 mm[Hg] DO Jennifer Duran Work Phone: [facility] 09-14-2021 14:45-0400 Body height 165.1 cm DO Jennifer Duran Work Phone: [facility] 09-14-2021 14:45-0400 Body mass index (BMI) [Ratio] 30.7 kg/m2 DO Jennifer Duran Work Phone: [facility] 09-14-2021 14:45-0400 Body temperature 98 [degF] DO Jennifer Duran Work Phone: [facility] 09-14-2021 14:45-0400 Body weight 83.91 kg DO Jennifer Duran Work Phone: [facility] 04-21-2021 16:20-0500 Body height 165.1 cm Jennifer Duran Other [facility] Other 04-21-2021 16:20-0500 Body mass index (BMI) [Ratio] 32.28 kg/m2 Jennifer Duran Other [facility] Other 04-21-2021 16:20-0500 Body temperature 98.3 [degF] Jennifer Duran Other [facility] Other 04-21-2021 16:20-0500 Body weight 88 kg Jennifer Duran Other [facility] Other 04-21-2021 16:20-0500 Diastolic blood pressure 82 mm[Hg] Jennifer Duran Other [facility] Other 04-21-2021 16:20-0500 SaO2% (BldA) [Mass fraction] 98 % Jennifer Enochivelisse Other [facility] Other 04-21-2021 16:20-0500 Systolic blood pressure 124 mm[Hg] Jennifer Kendallivelisse Other [employer] Other Encounters Encounter Date Encounter Type Care Provider Facility Start: 01-15-2025 End: 01-15-2025 Emergency department patient visit Angeles Doughrety Facility:[facility] Start: 12-06-2024 End: 12-06-2024 Emergency department patient visit NO PCP NO PCP [facility] Start: 10-01-2024 End: 10-02-2024 ambulatory NO PCP NO PCP [facility] Start: 10-01-2024 End: 10-01-2024 Telephone encounter Thalia Barnard [facility] varghese Comment on above: right sided abdomina l pain Start: 09-27-2024 End: 09-28-2024 Emergency department patient visit NO PCP NO PCP [facility] Start: 09-12-2024 End: 09-12-2024 Telephone encounter Adiel Aparicio MD Work Phone: [facility] Gynecology Oncology, A Department of [facility] Comment on above: Appointment Start: 09-04-2024 End: 09-04-2024 Emergency department patient visit NO PCP NO PCP [facility] Start: 09-04-2024 End: 09-04-2024 Telephone encounter Latisha Venegas [facility] Comment on above: Abdominal Pain; Naus ea Start: 09-03-2024 End: 09-03-2024 ambulatory [facility] Work Phone: Start: 09-03-2024 End: 09-03-2024 Patient encounter procedure [facility] [place] Work Phone: Start: 08-10-2024 End: 08-10-2024 Emergency department patient visit Jignesh Dumont [facility] Start: 08-09-2024 End: 08-09-2024 Orders Only Shanae BACON Work Phone: [facility] Gynecology Oncology, A Department of [facility] Start: 08-05-2024 End: 08-05-2024 Emergency department patient visit Dimitri Vuong [facility] Start: 08-05-2024 End: 08-05-2024 Emergency department patient visit Dimitri Vuong [facility] Start: 08-02-2024 End: 08-02-2024 Emergency department patient visit Neha Hannah [facility] Start: 08-01-2024 End: 08-01-2024 Emergency department patient visit NO PCP NO PCP [facility] Start: 08-01-2024 End: 08-01-2024 Emergency department patient visit Konstantin Jain MD Work Phone: [facility] Emergency Medicine Start: 07-29-2024 End: 07-29-2024 Emergency department patient visit ROSE HARDY [facility] Comment on above: Chronic pelvic pain in female (Primary Dx); Right lower quadrant abdominal pain Start: 07-27-2024 End: 07-28-2024 Emergency department patient visit NO PCP NO PCP [facility] Start: 07-21-2024 End: 07-21-2024 Emergency department patient visit NO PCP NO PCP [facility] Start: 07-14-2024 End: 07-14-2024 Emergency department patient visit Donya Romano MD Work Phone: [facility] Emergency Medicine Start: 07-13-2024 End: 07-13-2024 Emergency department patient visit NO PCP NO PCP [facility] Start: 07-11-2024 End: 07-12-2024 Emergency department patient visit Shalonda Bacon MD Work Phone: [facility] Emergency Department Comment on above: Generalized abdomina l pain (Primary Dx) Start: 07-10-2024 Emergency department patient visit None Provider Facility:[facility] Start: 07-10-2024 Emergency department patient visit None Provider Facility:[facility] Start: 07-07-2024 End: 07-07-2024 Emergency department patient visit NO PCP NO PCP [facility] Start: 06-27-2024 End: 06-28-2024 Emergency department patient visit DO Jordyn Willett Facility:[facility] Start: 06-27-2024 End: 06-27-2024 Emergency department patient visit Randee Richardson MD Work Phone: [facility] Emergency Department Comment on above: Abdominal pain, righ t lower quadrant (Primary Dx) Start: 06-24-2024 End: 06-25-2024 Emergency department patient visit Ritesh Heath [facility] Start: 06-11-2024 Emergency department patient visit None Provider Facility:[facility] Start: 06-11-2024 End: 06-11-2024 Telephone encounter Kendra BACON Work Phone: [facility] Gynecology Oncology, A Department of [facility] Comment on above: Appointment Start: 06-11-2024 End: 06-11-2024 ambulatory ROBBIE ARRIAZA [facility] Start: 06-10-2024 End: 06-10-2024 ambulatory NO PCP NO PCP [facility] Start: 06-09-2024 End: 06-10-2024 Emergency department patient visit NO PCP NO PCP [facility] Start: 06-09-2024 End: 06-09-2024 Telephone encounter Isabell Lentz [facility] Taj varghese Comment on above: abnormal CT Start: 06-08-2024 Emergency department patient visit None Provider Facility:[facility] Start: 06-05-2024 End: 06-05-2024 Emergency department patient visit NO PCP NO PCP [facility] Start: 05-27-2024 End: 05-28-2024 Emergency department patient visit [facility] Start: 04-06-2024 End: 04-06-2024 Evaluation and management of inpatient NO PCP NO PCP [facility] Start: 04-05-2024 End: 04-05-2024 Emergency department patient visit NO PCP NO PCP [facility] Start: 04-03-2024 End: 04-03-2024 Evaluation and management of inpatient NO PCP NO PCP [facility] Start: 03-30-2024 Patient encounter status Isabell carlisle [facility] Start: 03-28-2024 End: 03-28-2024 ambulatory ADIEL Dee [facility] Start: 03-28-2024 Encounter for other preprocedural examination ADIEL [facility] Start: 03-23-2024 End: 03-23-2024 ambulatory [facility] Work Phone: Start: 03-23-2024 End: 03-23-2024 Patient encounter procedure [facility] Family [facility] [place] Work Phone: Start: 03-07-2024 End: 03-07-2024 Emergency department patient visit NO PCP NO PCP [facility] Start: 03-03-2024 End: 03-03-2024 Emergency department patient visit Davi Rivas DO Work Phone: [facility] Emergency Medicine Start: 02-24-2024 End: 02-24-2024 Emergency department patient visit Ashley Delcid MD Work Phone: [facility] Medicine Start: 02-16-2024 End: 02-16-2024 Emergency department patient visit Jennifer Moore MD Work Phone: [facility] Emergency Medicine Start: 02-13-2024 End: 02-13-2024 Emergency department patient visit Ritesh Heath [facility] Start: 01-27-2024 End: 01-28-2024 Emergency department patient visit GUSTAVO DAVIES [facility] Start: 01-27-2024 End: 01-27-2024 Emergency department patient visit NO PCP NO PCP [facility] Start: 01-22-2024 End: 01-22-2024 Emergency department patient visit Eren Mireles Emely DO Work Phone: [facility] ED Comment on above: Cyst of left ovary ( Primary Dx) Start: 01-19-2024 End: 01-19-2024 ambulatory DO Jennifer Enochivelisse Work Phone: [facility] Work Phone: Start: 01-19-2024 End: 01-19-2024 Patient encounter procedure DO Jennifer Duran Work Phone: [facility] [place] Work Phone: Start: 12-07-2023 ambulatory DO Jennifer roberts Work Phone: [facility] Work Phone: Start: 12-07-2023 Non-patient / Non-visit DO Ponce Duran Work Phone: [facility] Work Phone: Start: 11-25-2023 End: 11-25-2023 Patient encounter procedure DO Jennifer Enochivelisse Work Phone: [facility] [place] Work Phone: Start: 11-25-2023 End: 11-25-2023 ambulatory DO Jennifer Duran Work Phone: [facility] Work Phone: Start: 11-23-2023 End: 11-23-2023 ambulatory [facility] Start: 11-09-2023 End: 11-09-2023 ambulatory [facility] Start: 11-08-2023 End: 11-08-2023 Emergency department patient visit DO Jennifer Enochivelisse Work Phone: [facility] Work Phone: Start: 11-08-2023 End: 11-08-2023 Emergency department patient visit Eren Mireles Emely DO Work Phone: [facility] ED Comment on above: Toothache (Primary D x) Start: 10-19-2023 End: 10-19-2023 ambulatory TARUN BRADEN Not Available Start: 10-18-2023 End: 10-18-2023 ambulatory [facility] Work Phone: Start: 10-18-2023 End: 10-18-2023 Patient encounter procedure [facility] [place] Work Phone: Start: 09-29-2023 End: 09-30-2023 Emergency department patient visit Ritesh LewisEbenezer Ivana [facility] Start: 09-26-2023 End: 09-26-2023 Emergency department patient visit Konstantin Warde [facility] Start: 09-06-2023 End: 09-06-2023 Emergency department patient visit [facility] Start: 07-31-2023 End: 07-31-2023 Emergency department patient visit Jignesh Dumont [facility] Start: 07-28-2023 End: 07-28-2023 ambulatory PHYSICIAN NO [facility] Work Phone: Start: 07-28-2023 End: 07-28-2023 Patient encounter procedure PHYSICIAN NO [facility] [place] Work Phone: Start: 07-19-2023 End: 07-19-2023 ambulatory Jennifer Duran Other [facility] Other Start: 07-19-2023 Telephone encounter Jennifer Duran [facility] [place] Start: 06-22-2023 End: 06-23-2023 Emergency department patient visit EVGENY SEN MD Facility:[facility] Start: 06-07-2023 End: 06-07-2023 ambulatory Jennifer Duran Other [employer] Other Start: 06-07-2023 Telephone encounter Jennifer Duran [facility] [place] Start: 05-16-2023 End: 05-16-2023 ambulatory Jennifer Duran Other [employer] Other Start: 05-16-2023 Telephone encounter Jennifer Duran [facility] Start: 04-30-2023 End: 04-30-2023 Emergency department patient visit DO Jennifer Wilber Work Phone: [facility] Work Phone: Start: 04-24-2023 End: 04-24-2023 Emergency department patient visit Jignesh Dumont [facility] Start: 04-18-2023 End: 04-18-2023 ambulatory Jennifer Duran Other [employer] Other Start: 04-18-2023 Telephone encounter Jennifer Duran [facility] Start: 04-11-2023 End: 04-11-2023 ambulatory Jennifer Duran Other [employer] Other Start: 04-11-2023 Telephone encounter Jennifer Duran [facility] [place] Start: 04-04-2023 End: 04-04-2023 ambulatory Jennifer Duran Other [employer] Other Start: 04-04-2023 Telephone encounter Jennifer Duran [facility] [place] Start: 04-02-2023 End: 04-03-2023 Emergency department patient visit DO Jennifer Duran Work Phone: [facility] Work Phone: Start: 04-01-2023 End: 04-01-2023 ambulatory Jennifer Duran Other [employer] Other Start: 04-01-2023 Telephone encounter Jennifer Duran [facility] [facility] [place] Start: 03-29-2023 Telephone encounter Jennifer Duran [facility] [place] Start: 03-29-2023 End: 03-29-2023 Evaluation and management of inpatient DO Jennifer Duran Work Phone: [facility] [place] [facility] Work Phone: Start: 03-29-2023 End: 03-29-2023 observation encounter DO Jennifer Duran Work Phone: [facility] Work Phone: Start: 03-29-2023 End: 03-29-2023 ambulatory Jennifer Duran [facility] Other Start: 03-13-2023 End: 03-13-2023 ambulatory DO Jennifer Enochivelisse Work Phone: [facility] Work Phone: Start: 03-13-2023 End: 03-13-2023 Patient encounter procedure DO Jennifer Duran Work Phone: [facility]-Flu Vaccine Start: 03-02-2023 End: 03-02-2023 ambulatory Jennifer Duran Other [facility] Other Start: 03-02-2023 Telephone encounter Jennifer Duran [facility] [place] Start: 02-05-2023 End: 02-06-2023 Emergency department patient visit DO Jennifer Duran Work Phone: [facility]Emer[facility] Work Phone: Start: 01-12-2023 End: 01-12-2023 ambulatory Jennifer Duran Other [facility] Other Start: 01-12-2023 Office outpatient vi sit 15 minutes Jennifer Duran [facility] [place] Start: 12-09-2022 End: 12-09-2022 ambulatory Jennifer Duran Other [facility] Other Start: 12-09-2022 Telephone encounter Jennifer Duran [facility] [place] Start: 10-11-2022 End: 10-11-2022 ambulatory Jennifer Duran Other [facility] Other Start: 10-11-2022 Telephone encounter Jennifer Wilber [facility] [place] Start: 09-22-2022 End: 09-22-2022 ambulatory Jennifer Duran Other [facility] Other Start: 09-22-2022 Telephone encounter Jennifer Duran [facility] [place] Start: 07-28-2022 End: 07-28-2022 ambulatory BELKIS JAIME Facility:[facility] Start: 07-12-2022 End: 07-12-2022 ambulatory Jennifer Duran Other [facility] Other Start: 07-12-2022 Office outpatient vi sit 15 minutes Jennifer Duran [facility] [place] Start: 07-12-2022 Telephone encounter Jennifer Enochivelisse [facility] [place] Start: 06-02-2022 End: 06-02-2022 ambulatory Jennifer Duran Other [facility] Other Start: 06-02-2022 Telephone encounter Jennifer Wilber [facility] [place] Start: 05-04-2022 End: 05-04-2022 ambulatory Jennifer Duran Other [facility] Other Start: 05-04-2022 Telephone encounter Jennifer Duran [facility] [place] Start: 04-30-2022 Telephone encounter Madyson arechiga APRN.OYSTER GROWER Work Phone: Hematology/Oncology Comment on above: Lab Orders Start: 04-28-2022 Evaluation and management of inpatient DO Jennifer Wilber Work Phone: [facility] [place] Start: 04-28-2022 observation encounter DO Jennifer Duran Work Phone: [facility] Work Phone: Start: 04-12-2022 End: 04-12-2022 ambulatory Jennifer Duran Other [employer] Other Start: 04-12-2022 Office outpatient vi sit 15 minutes Jennifer Duran [facility] Start: 04-12-2022 Telephone encounter Jennifer Duran [facility] Start: 04-09-2022 End: 04-10-2022 ambulatory Stephenie Suh 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 Comment on above: Art Therapy Iron deficiency anem ia due to chronic blood loss (Primary Dx); Malabsorption of iron; Cyst of left ovary Start: 03-26-2022 End: 03-27-2022 ambulatory MADYSON NI Facility:[facility] Start: 03-26-2022 End: 03-26-2022 ambulatory Chair Anton España Work Phone: Hematology/Oncology Comment on above: Iron deficiency anem ia due to chronic blood loss (Primary Dx); Malabsorption of iron; Cyst of left ovary Start: 03-15-2022 Telephone encounter Sharon Saavedra [facility] ematology/Oncology Comment on above: Social Work Services Start: 03-10-2022 End: 03-11-2022 ambulatory Madyson Ni APRN.OYSTER GROWER Work Phone: Hematology/Oncology Comment on above: Iron deficiency anem ia due to chronic blood loss (Primary Dx); Malabsorption of iron Start: 03-10-2022 End: 03-10-2022 Patient encounter procedure Madyson Ni APRN.OYSTER GROWER Work Phone: [facility] Start: 02-18-2022 Telephone encounter Madyson arechiga BLOCK MECHANIC.[employer]STER GROWER Work Phone: Hematology/Oncology Comment on above: Lab Orders Start: 02-16-2022 End: 02-16-2022 ambulatory Jennifer Duran Other [employer] Other Start: 02-16-2022 Telephone encounter Jennifer Duran [facility] Start: 02-12-2022 End: 02-12-2022 Patient encounter procedure DO Jennifer Duran Work Phone: [facility] [place] Start: 01-07-2022 End: 01-07-2022 ambulatory Jennifer Duran Other [facility] Other Start: 01-07-2022 Telephone encounter Jennifer Duran [facility] [place] Start: 12-04-2021 End: 12-04-2021 Patient encounter procedure Yamilka X Or[facility] Start: 10-29-2021 End: 10-29-2021 ambulatory Jennifer Duran Other [facility] Other Start: 10-29-2021 Telephone encounter Jennifer Duran [facility] [place] Start: 10-16-2021 End: 10-16-2021 ambulatory Jennifer Duran Other [employer] Other Start: 10-16-2021 Office outpatient vi sit 15 minutes Jennifer Duran [facility] [place] Start: 09-21-2021 End: 09-21-2021 ambulatory Jennifer Duran Other [facility] Other Start: 09-21-2021 Telephone encounter Jennifer Duran [facility] [place] Start: 09-14-2021 End: 09-14-2021 Emergency department patient visit DO Jennifer Duran Work Phone: [facility] Start: 08-18-2021 End: 08-18-2021 ambulatory Jennifer Duran Other [employer] Other Start: 08-18-2021 Telephone encounter Jennifer Duran [facility] [place] Start: 08-11-2021 End: 08-11-2021 ambulatory Jennifer Duran Other [facility] Other Start: 08-11-2021 Telephone encounter Jennifer Duran [facility] [place] Start: 08-03-2021 End: 08-03-2021 ambulatory Jennifer Duran Other [employer] Other Start: 08-03-2021 Telephone encounter Jennifer Duran [facility] Start: 07-04-2021 End: 07-04-2021 Patient encounter procedure DO Jennifer Duran Work Phone: [facility] [place] Start: 06-04-2021 End: 06-04-2021 ambulatory Jennifer Duran Other [employer] Other Start: 06-04-2021 Telephone encounter Jennifer Duran [facility] Start: 05-18-2021 End: 05-18-2021 ambulatory Jennifer Duran Other [facility] Other Start: 05-18-2021 [facility] Start: 04-21-2021 End: 04-21-2021 ambulatory Jennifer Duran Other [facility] Other Start: 04-21-2021 Encounter for genera l [...] paranasal sinu s without contrast DO Jennifer Enochivelisse Work Phone: Start: 04-30-2023 Pelvic echography DO Da vid Wilber Work Phone: Start: 04-30-2023 Transvaginal echography DO Jennifer Duran Work Phone: Start: 03-29-2023 Computed tomography of abdomen and pelvis with contrast DO Jennifer Enochivelisse Work Phone: Start: 03-29-2023 Transvaginal echography DO Jennifer Duran Work Phone: Start: 03-29-2023 Pelvic echography DO Da vid Girvin Work Phone: Start: 02-06-2023 Pelvic echography DO Da vid Girvin Work Phone: Start: 02-06-2023 Transvaginal echography DO Jennifer Duran Work Phone: Start: 02-05-2023 Computed tomography of abdomen and pelvis with contrast DO Jennifer Kendallivelisse Work Phone: Start: 09-14-2021 Computed tomography of abdomen and pelvis with contrast DO Jennifer Duran Work Phone: Start: 09-14-2021 Pelvic echography DO Pool Duran Work Phone: Start: 09-14-2021 Transvaginal echography DO Jennifer Duran Work Phone: Cholecystectomy Ritesh Lynnboris teddy Hysterectomy Ritesh Ivana Plan of Treatment Date Care Activity Detail Author Start: 10-01-2025 Adult BMI Screening Adult BMI Screen ing [facility] Start: 10-01-2025 Tobacco Screening Tobacco Screening [facility] Start: 09-04-2025 Tobacco Screening Tobacco Screening [facility] Start: 08-01-2025 Adult BMI Screening Adult BMI Screen ing [facility] Start: 08-01-2025 Tobacco Screening Tobacco Screening [facility] Start: 06-10-2025 Adult BMI Screening Adult BMI Screen ing [facility] Start: 06-09-2025 Adult BMI Screening Adult BMI Screen ing [facility] Start: 06-09-2025 Tobacco Screening Tobacco Screening [facility] Start: 02-11-2025 Influenza vaccination Influenza Vacc ine [facility] Start: 09-12-2024 End: 09-12-2024 Patient encounter procedure [facility] Gynecology Oncology, A Department of [facility] Start: 02-12-2024 COVID-19 VACCINE ( season) COVID-19 VACCINE ( season) [facility] Start: 02-12-2024 COVID-19 Vaccine ( season) COVID-19 Vaccine ( season) [facility] Start: 02-12-2024 Influenza vaccination A [facility] Start: 01-12-2024 Influenza vaccination Flu vaccine (# 1) [facility] Start: 12-07-2023 Patient referral [facility] Work Phone: Start: 03-30-2023 Comprehensive metabo lic 2000 panel - Serum or Plasma [facility] Start: 03-30-[address] [facility] Start: 03-29-[address] [facility] Start: 03-29-2023 Referral to retail account representative [facility] Start: 03-29-2023 Hospital admission [facility] Start: 03-29-[address] [facility] Start: 03-29-2023 Computed tomography of abdomen and pelvis with contrast [facility] Start: 03-29-2023 CT Abdomen and Pelvi s W contrast IV [facility] Start: 03-29-2023 Transvaginal echography US transvagi nal [facility] Start: 03-29-2023 US Pelvis transvaginal [facility] Start: 03-29-2023 Pelvic echography US pelvic complete [facility] Start: 03-29-2023 US Pelvis [facility] Start: 02-11-2023 COVID-19 Vaccine () COVID-19 Vaccine () [facility] Start: 02-06-2023 Pelvic echography US pelvic complete [facility] Start: 02-06-2023 US Pelvis [facility] Start: 02-06-2023 Transvaginal echography US transvagi [facility] Start: 02-06-2023 US Pelvis transvaginal [facility] Start: 02-05-2023 Computed tomography of abdomen and pelvis with contrast CT abdomen [facility] Start: 02-05-2023 CT Abdomen and Pelvi s W contrast IV [facility] Start: 05-05-2022 End: 07-05-2022 CBC W Auto Differential panel - Blood CBC + DIFF Lab Routine Iron deficiency anemia due to chronic blood loss Malabsorption of iron Expected: 05/05/2022, Expires: 07/05/2022 [facility] Work Phone: Comment on above: Expected: 05/05/2022 , Expires: 07/05/2022 Start: 05-03-2022 End: 07-03-2022 Comprehensive metabolic 2000 panel - Serum or Plasma COMP METABOLIC PANEL Lab Routine Iron deficiency anemia due to chronic blood loss Expected: 05/03/2022, Expires: 07/03/2022 [facility] Work Phone: Comment on above: Expected: 05/03/2022 , Expires: 07/03/2022 Start: 04-28-2022 Pelvic echography US pelvic complete [facility] Start: 04-28-2022 US Pelvis [facility] Start: 04-28-2022 CT Abdomen and Pelvi s WO contrast [facility] Start: 04-28-2022 CT of abdomen and pe lvis without contrast CT abdomen pelvis wo con [facility] Start: 04-28-2022 Transvaginal echography US transvagi nal [facility] Start: 04-28-2022 US Pelvis transvaginal [facility] Start: 02-23-2022 End: 02-20-2023 CBC W Auto Differential panel - Blood CBC + DIFF Lab Routine Iron deficiency anemia due to chronic blood loss Expected: 02/23/2022 (Approximate), Expires: 02/20/2023 [facility] Work Phone: Comment on above: Expected: 02/23/2022 (Approximate), Expires: 02/20/2023 Start: 02-23-2022 End: 02-20-2023 Cobalamin (Vitamin B12) [Mass/volume] in Serum or Plasma VITAMIN B12 BLOOD Lab Routine Iron deficiency anemia due to chronic blood loss Expected: 02/23/2022 (Approximate), Expires: 02/20/2023 [facility] Work Phone: Comment on above: Expected: 02/23/2022 (Approximate), Expires: 02/20/2023 Start: 02-23-2022 End: 02-20-2023 Comprehensive metabolic 2000 panel - Serum or Plasma COMP METABOLIC PANEL Lab Routine Iron deficiency anemia due to chronic blood loss Expected: 02/23/2022 (Approximate), Expires: 02/20/2023 [facility] Work Phone: Comment on above: Expected: 02/23/2022 (Approximate), Expires: 02/20/2023 Start: 02-23-2022 End: 02-20-2023 Ferritin [Mass/volume] in Serum or Plasma FERRITIN BLD Lab Routine Iron deficiency anemia due to chronic blood loss Expected: 02/23/2022 (Approximate), Expires: 02/20/2023 [facility] Work Phone: Comment on above: Expected: 02/23/2022 (Approximate), Expires: 02/20/2023 Start: 02-23-2022 End: 02-20-2023 Folate [Mass/volume] in Serum or Plasma FOLATE SERUM Lab Routine Iron deficiency anemia due to chronic blood loss Expected: 02/23/2022 (Approximate), Expires: 02/20/2023 [facility] Work Phone: Comment on above: Expected: 02/23/2022 (Approximate), Expires: 02/20/2023 Start: 02-23-2022 End: 02-20-2023 Iron and Iron binding capacity panel - Serum or Plasma IRON + TIBC Lab Routine Iron deficiency anemia due to chronic blood loss Expected: 02/23/2022 (Approximate), Expires: 02/20/2023 [facility] Work Phone: Comment on above: Expected: 02/23/2022 (Approximate), Expires: 02/20/2023 Start: 02-11-2022 Influenza vaccination INFLUENZA (#1) [facility] Start: 06-13-2021 DEPRESSION ASSESSMENT DEPRESSION ASS ESSMENT [facility] Start: 11-30-2020 COVID-19 VACCINE (3 - Booster for Moderna series) COVID-19 VACCINE (3 - Booster for Moderna series) [facility] Start: 08-27-2020 COVID-19 VACCINE (3 - Booster for Moderna series) COVID-19 VACCINE (3 - Booster for Moderna series) [facility] Start: 2017 HPV TESTING HPV TESTING [facility] Start: 2017 Screening for malign ant neoplasm of cervix [facility] Start: 01-11-2008 PAP TESTING PAP TESTING [facility] Start: 01-11-2008 Screening for malign ant neoplasm of cervix [facility] Start: 2006 DTaP,Tdap and Td Vaccines (1 - Tdap) DTaP,Tdap and Td Vaccines (1 - Tdap) [facility] Start: 2006 DTaP/Tdap/Td vaccine (1 - Tdap) DTaP/Tdap/Td vaccine (1 - Tdap) [facility] Start: 2006 Hepatitis B vaccination HEP B VACCINE (1 of 3 - 19+ 3-dose series) [facility] Start: 2006 Hepatitis B vaccine (1 of 3 - 19+ 3-dose series) Hepatitis B vaccine (1 of 3 - 19+ 3-dose series) [facility] Start: 2006 Third diphtheria, tetanus and acellular pertussis (DTaP) vaccination TDAP (ADULT) [facility] Start: 2006 Urine microalbumin profile DTAP,TDAP,TD (1 - Tdap) [facility] Start: 2005 Adult BMI Follow Up Plan Adult BMI Follow Up Plan [facility] Start: 2005 HEPATITIS C SCREENING HEPATITIS C SC REENING [facility] Start: 2005 Hepatitis C screening Hepatitis C sc reen [facility] Start: 2005 HIV SCREENING HIV SCREENING [facility] Start: 2002 HIV screening [facility] Start: 01-11-2000 Varicella vaccine (1 of 2 - 13+ 2-dose series) Varicella vaccine (1 of 2 - 13+ 2-dose series) [facility] Start: 1999 Adult depression screening assessment DEPRESSION SCREENING [facility] Start: 1999 Depression Screen Depression Screen [facility] Start: 01-11-1988 Varicella vaccine (1 of 2 - 2-dose childhood series) Varicella vaccine (1 of 2 - 2-dose childhood series) [facility] Start: 1987 HEPATITIS B (1 of 3 - 3-dose series) HEPATITIS B (1 of 3 - 3-dose series) [facility] Start: 1987 Hepatitis B vaccine (1 of 3 - 3-dose series) Hepatitis B vaccine (1 of 3 - 3-dose series) [facility] Start: 1987 Hepatitis C screening HEPATITI S C VIRUS SCREENING [facility] Start: 1987 Tetanus vaccination TETANUS [facility] CT Sinuses WO contrast [facility] Patient Education [facility] Work Phone: Patient referral [facility] Work Phone: End: 02-16-2024 Standard ECG ECG ECG STAT One Time for 1 Occurrences starting 02/16/2024 until 02/16/2024 [facility] Comment on above: One Time for 1 Occur rences starting 02/16/2024 until 02/16/2024 [facility] Immunizations Immunization Date Immunization Notes Care Provider Fa cility 06-09-2023 influenza, injectable, quadrivalent, contains preservative [facility] 06-09-2023 influenza virus vaccine, unspecified formulation Jennifer Moore MD Work Phone: [facility] 03-13-2023 influenza, injectable, quadrivalent, preservative free Jennifer Duran Other [facility] 03-31-2021 influenza, seasonal, injectable Jennifer Duran Other [facility] 07-02-2020 COVID-19 Vaccine Moderna - Documentation Purposes Only Jennifer Duran Other [facility] 06-04-2020 COVID-19 Vaccine Moderna - Documentation Purposes Only Jennifer Duran Other [facility] 12-10-2008 measles, mumps and rubella virus vaccine Yamilka Lorenzo [facility] NEGATED: Highlighted row has not occurred!03-23-2019 influenza, seasonal, injectable Patient Objection Jennifer Duran Other [facility] Payers Date Payer Category Payer Self-pay [id number] 2020 [employer] Managed Care - Other [id number] 2018 Unknown [id number]. [id number] .315 1987 Unknown [id number] 2.16.840.1.842226.3.579.2.593 1987 Unknown [id number] 2.16.840.1.194290.3.579.2.182 1987 Unknown [id number] 2.16.840.1.769620.3.579.2.1259 1987 Unknown [id number] 2.16.840.1.003074.3.579.2.1286 1987 Unknown [id number] 2.16.840.1.666481.3.579.2.128 1987 Unknown [id number] 2.16.840.1.319776.3.579.2.1286 1987 Unknown [id number] 2.840.1.282370.3.579.2.128 1987 Unknown [id number] 2.16840.1.735542.3.579.2.1286 1987 Unknown [id number] 2.16840.1.783522.3.579.2.128 1987 Unknown [id number] 2.16.840.1.296582.3.579.2.1286 1987 Unknown [id number] 2.16840.1.867380.3.579.2.128 1987 Unknown [id number] 2.16.840.1.246723.3.579.2.1286 1987 Unknown [id number] 2.16.840.1.808990.3.579.2.128 1987 Unknown [id number] 2.16.840.1.000878.3.579.2.727 1987 Unknown [id number] 2.16.840.1.950124.3.579.2.727 1987 Unknown [id number] 2.16.840.1.380091.3.579.2.727 1987 Unknown [id number] 2.16.840.1.456906.3.579.2.727 1987 Unknown [id number] 2.16.840.1.791462.3.579.2.727 1987 Unknown [id number] 2.16.840.1.544914.3.579.2.727 1987 Unknown [id number] 2.16.840.1.125286.3.579.2.727 1987 Unknown [id number] 2.16.840.1.019799.3.579.2.727 1987 Unknown [id number] 2.16.840.1.800914.3.579.2.718 1987 Unknown [id number] 2.16840.1.858434.3.579.2.718 1987 Unknown [id number] 2.16.840.1.190746.3.579.2.718 1987 Unknown [id number] 2.16.840.1.597857.3.579.2.173 1987 Unknown [id number] 2.16.840.1.111307.3.579.2.173 1987 Unknown [id number] 2.16.840.1.994455.3.579.2.174 1987 Unknown [id number] 2.16.840.1.514518.3.579.2.174 1987 Unknown [id number] 2.16.840.1.847821.3.579.2.174 1987 Unknown [id number] 2.16.840.1.029200.3.579.2.174 1987 Unknown [id number] 2.16.840.1.788095.3.579.2.983 1987 Unknown [id number] 2.16.840.1.042533.3.579.2.983 1987 Unknown [id number] 2.16.840.1.816737.3.579.2.983 1987 Unknown [id number] 2.16.840.1.805721.3.579.2.983 1987 Unknown [id number] 2.16840.1.515066.3.579.2.983 1987 Unknown [id number] 2.16840.1.992464.3.579.2.727 1987 Unknown [id number] 2.16840.1.730657.3.579.2.727 1987 Unknown [id number] 2.16840.1.239589.3.579.2.727 1987 Unknown [id number] 2.0.1.150221.3.579.2727 1987 Unknown [id number] 2.840.1.863212.3.579.2.727 1987 Unknown [id number] 2.840.1.567612.3.579.2.727 1987 Unknown [id number] 2.840.1.772006.3.579.2.727 1987 Unknown [id number] 2.840.1.086343.3.579.2.128 1987 Unknown [id number] 2.16840.1.294039.3.579.2.128 1987 Unknown [id number] 2.16840.1.895133.3.579.2.128 1987 Unknown [id number] 2.16840.1.932262.3.579.2.128 1987 Unknown [id number] 2.840.1.549102.3.579.2.128 1987 Unknown [id number] 2.16840.1.402070.3.579.2.1285 1987 Unknown [id number] 2.840.1.396679.3.579.2.1285 1987 Unknown [id number] 2.16840.1.503168.3.579.2.1285 1987 Unknown [id number] 2.840.1.010705.3.579.2.1285 1987 Unknown [id number] 2.840.1.195237.3.579.2.1285 1987 Unknown [id number] .0.1.461586.3.579.2.1285 1987 Unknown [id number] 2.0.1.909805.3.579.2.1285 1987 Unknown [id number] .0.1.089840.3.579.2.1285 1987 Unknown [id number] 2.0.1.780448.3.579.2.1285 1987 Unknown [id number] .0.1.492310.3.579.2.1285 1987 Unknown [id number] 2.840.1.991325.3.579.2.727 1959 Unknown [id number] Unknown [id number] Unknown [id number] Unknown [id number] Unknown [id number] 2.840.1.574947.3.579.2.531 Unknown [id number] 2840.1.094675.3.579.2.531 Unknown [id number] 2840.1.294361.3.579.2.531 Unknown [id number] 2840.1.545783.3.579.2.531 Unknown [id number] 2.840.1.618785.3.579.2.531 Social History Date Type Detail Facility Start: 09-14-2021 End: 05-25-2023 Tobacco smoking status NHIS Never smoked tobacco (finding) [facility] Start: 1985 Sex Assigned At Female [facility] Tobacco smoking status Never [facility] Start: 05-30-2023 End: 10-01-2024 Sex Assigned At [facility] Other Start: 04-05-2018 End: 05-25-2023 Tobacco use and exposure Smokeless tobacco non-user [facility] Start: 10-27-2020 End: 09-04-2024 Alcohol intake Current drinker of alcohol (finding) [facility] Start: 04-05-2018 History SDOH Alcohol Comment socially [facility] Start: 1987 Sex Assigned At Not on file [facility] Start: 02-06-2022 End: 04-09-2022 Exposure to SARS-CoV-2 (event) Not sure [facility] History of tobacco use Passive smoker [facility] Start: 09-05-2023 End: 01-22-2024 Alcohol intake Not Asked happin! Start: 05-30-2023 End: 10-01-2024 History of Social function happin! How often to you hav e a drink containing alcohol? Monthly or less happin! How many standard drinks containing alcohol do you have on a typical day? 1 or 2 happin! How often do you hav e 6 or more drinks on 1 occasion? Less than monthly happin! Start: 05-30-2023 End: 07-14-2024 Alcohol Comment social happin! [facility] Start: 04-03-2024 Alcohol Comment monthly [facility] Start: 01-14-2015 End: 09-03-2024 [facility] Start: 06-27-2024 End: 10-01-2024 Alcoholic beverage intake Ex-drinker (finding) [facility] [facility] Tobacco [facility] Comment on above: Denies Tobacco smoking status No Smokin g Status Entered [facility] Goals Date Patient Goal Desired Activity /State Functional Status Date Assessment Result Facility 08-10-2024 Functional Status N[facility] 08-05-2024 Functional Status N[facility] 08-05-2024 Functional Status N/[facility] 08-02-2024 Functional Status N/A [facility] 06-27-2024 Functional Status N/A [facility] 06-24-2024 Functional Status N/A [facility] 02-13-2024 Functional Status N/A [facility] 09-29-2023 Functional Status N/A [facility] 09-26-2023 Functional Status N/A [facility] 07-31-2023 Functional Status N/A [facility] 04-24-2023 Functional Status N/A [facility] 03-29-2023 Functional status Patient at [facility] Work Phone: 12-04-2021 Functional Status N/A [facility] Mental Status Date Assessment Result Facility 03-29-2023 Cognitive function Cognitive Sta tus Patient at [facility] Work Phone: Clinical Notes 03-19-2019 to 01-15-2025 Telephone Encounter - Thalia McMorgan - 10/01/2024 8:57 PM EDTTelephone Encounter - Thalia McMorgan - 10/01/2024 8:57 PM EDTTelephone Encounter - Thalia McMorgan - 10/01/2024 8:57 PM EDT Note Date & Type Note Facility 01-15-2025 Note ED Patient Education Note Gastroenterology Abdominal Pain, [...] these instructions at home: Medicines ??? Take zuga-mbw-bodbkmr and prescription medicines only as told by [...] provider. Document Revised: 03/16/2023 Document Reviewed: 03/16/2023 Elseamado Patient Education ? 2023 [employer] [facility] 10-01-2024 Miscellaneous Notes Formattin g of this note might be different from the original. Contract: 166 Dipak @[employer] called regarding right sided abdominal pain @[place] [facility] OC166 I numerically paged the OBSTETRIC ASSISTANT ONC to [facility] OC166 OBSTETRIC ASSISTANT ONC called back & I transferred them to [employer] [facility] Telephone encount er Note Contract: 166 Dipak @[facility] called regarding right sided abdominal pain @[facility]24 Telephone encount er Note OC166 I numerically paged the OBSTETRIC ASSISTANT ONC to [facility]24 Telephone encount er Note OC166 OBSTETRIC ASSISTANT ONC called back & I transferred them to [employer] [facility]-12-2024 Miscellaneous Notes Formattin g of this note might be different from the original. [employer] 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 Patient wanted to reschedule her appointment due to the weather ( Storms). documented [facility] this [facility]24 Telephone encount er Note [employer] 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 Patient wanted to reschedule her appointment due to the weather ( Storms). [facility] 09-04-2024 Miscellaneous Notes Formattin g of this note might be different from the original. Contract: 166 re Abd Pain, Nausea Dr Aparicio Numeric page sent to PA to call ER documented in this encounter [facility] 09-04-2024 Telephone encount er Note Contract: 166 re Abd Pain, Nausea Dr Aparicio [facility] 09-04-2024 Telephone encount er Note Numeric page sent to PA to call ER [facility] 08-11-2024 Hospital Discharg e instructions Patient Education [...] your skin (aromatherapy). Other treatments may include: Tfsp-izf-reygxol or prescription medicines. Color, light, or sound therapy. Local electrical stimulation. The electrical pulses help to relieve pain by temporarily stopping the nerve impulses that cause you to feel pain. Injections. These deliver numbing or pain-relieving medicines into the spine or the area of pain. Medicines Take mihd-krp-inpeiyo and prescription medicines only as told by your health care provider. Ask your health care provider if the medicine prescribed to you: ?Requires you to avoid driving or using machinery. ?Can cause constipation. You may need to take these actions to prevent or treat constipation: ?Drink enough fluid to keep your urine pale yellow. ?Take mstb-gva-uosuefy or prescription medicines. ?Eat foods that are [...] the National Suicide Prevention Lifeline at or 229. This is open 24 hours a day. Text the Crisis Text Line at 565828. This information is not intended to replace advice given to you by your health care provider. Make sure you discuss any questions you have with your health care provider. Document Revised: 01/19/2023 Document Reviewed: 12/22/2022 DossierView Patient Education 2023 OpenWhere. Follow Up Care 08/10/2024 19:36:46 With:Rose Royal Address: [address] [address] [facility] (1) When:08/13/2024 With:XXXX NONE Address: [place] When:08/13/2024 Comments:Call to schedule a follow-up appointment with your surgeon for further management of care. Return to the ED with any new or worsening symptoms. [facility] 08-10-2024 Note ED Patient Education Note Mental and Behavioral Health [...] skin (aromatherapy). Other treatments may include: ??? Mzii-xrl-ghvsmzj or prescription medicines. ??? Color, light, or sound therapy. ??? Local electrical stimulation. The electrical pulses help to relieve pain by temporarily stopping the nerve impulses that cause you to feel pain. ??? Injections. These deliver numbing or pain-relieving medicines into the spine or the area of pain. Medicines ??? Take qmqc-jeg-rwnwgsj and prescription medicines only as told by your health care provider. ??? Ask your health care provider if the medicine prescribed to you: ? Requires you to avoid driving or using machinery. ? Can cause constipation. You may need to take these actions to prevent or treat constipation: ? Drink enough fluid to keep your urine pale yellow. ? Take uccd-kbh-hidomeq or prescription medicines. ? Eat foods that [...] the National Suicide Prevention Lifeline at or 363. This is open 24 hours a day. ??? Text the Crisis Text Line at 657709. This information is not intended to replace advice given to you by your health care provider. Make sure you discuss any questions you have with your health care provider. Document Revised: 01/19/2023 Document Reviewed: 12/22/2022 [employer] Patient Education ? 2023 OpenWhere. [facility] 08-10-2024 Evaluation + Plan note Extrac flo from: Title:ED Note Author:Andres SCOTT, Lexy Lanza te:08/10/24 Chronic abdominal pain (R10. 9: Unspecified [...] Panel Lipase Level UA with Cult Rflx [facility] 02-23-2025 Hospital Discharge instructions Patient Education 08/05/2024 19:29:44 Abdominal Pain, Adult, Bntn-el-Cnjl Abdominal Pain, Adult Many things can cause belly (abdominal) pain. In most cases, belly pain is not a serious problem and can be watched and treated at home. But in some cases, it can be serious. Your doctor will try to find the cause of your belly pain. Follow these instructions at home: Medicines Take cybm-wyg-zymjhkx and prescription medicines only as told by [...] provider. Document Revised: 03/16/2023 Document Reviewed: 03/16/2023 DossierView Patient Education 2023 OpenWhere. Follow Up Care 08/05/2024 18:01:40 With:Pain Clinic: [facility] [phone] Address:Unknown When:08/08/2024 19:18:57 Comments:Call for diagnosis based follow up With:Savannah Petersen Address: [address] [place] [phone]- Business (1) When:08/08/2024 19:18:52 Comments:Call Dr for diagnosis based follow up [facility] [id number] NoteED Patient Education Note Gastroenterology Abdominal Pain, Adult Many things can cause belly (abdominal) pain. In most cases, belly pain is not a serious problem and can be watched and treated at home. But in some cases, it can be serious. Your doctor will try to find the cause of your belly pain. Follow these instructions at home: Medicines ??? Take cjfu-yfb-pnzachu and prescription medicines only as told by [...] provider. Document Revised: 03/16/2023 Document Reviewed: 03/16/2023 DossierView Patient Education ? 2023 OpenWhere.[facility] 08-05-2024 Hospital Discharge instructions Patient Education 08/05/2024 [...] your skin (aromatherapy). Other treatments may include: Ybfa-vaw-vgrmmwk or prescription medicines. Color, light, or sound therapy. Local electrical stimulation. The electrical pulses help to relieve pain by temporarily stopping the nerve impulses that cause you to feel pain. Injections. These deliver numbing or pain-relieving medicines into the spine or the area of pain. Medicines Take nkba-ggu-litaafj and prescription medicines only as told by your health care provider. Ask your health care provider if the medicine prescribed to you: ?Requires you to avoid driving or using machinery. ?Can cause constipation. You may need to take these actions to prevent or treat constipation: ?Drink enough fluid to keep your urine pale yellow. ?Take otqd-wpe-ovsmbrr or prescription medicines. ?Eat foods that are [...] the National Suicide Prevention Lifeline at or 871. This is open 24 hours a day. Text the Crisis Text Line at 498589. This information is not intended to replace advice given to you by your health care provider. Make sure you discuss any questions you have with your health care provider. Document Revised: 01/19/2023 Document Reviewed: 12/22/2022 DossierView Patient Education 2023 OpenWhere. Follow Up Care 08/05/2024 11:07:17 With:XXXX NONE Address: [place] When:08/08/2024 11:25:55 Comments:Follow-up with your OBGYN surgeon [facility] 02-23-2025 NoteED Patient Education Note Mental and [...] skin (aromatherapy). Other treatments may include: ??? Uasb-mdb-kaqffwy or prescription medicines. ??? Color, light, or sound therapy. ??? Local electrical stimulation. The electrical pulses help to relieve pain by temporarily stopping the nerve impulses that cause you to feel pain. ??? Injections. These deliver numbing or pain-relieving medicines into the spine or the area of pain. Medicines ??? Take uirk-zlr-mfxnuvu and prescription medicines only as told by your health care provider. ??? Ask your health care provider if the medicine prescribed to you: ? Requires you to avoid driving or using machinery. ? Can cause constipation. You may need to take these actions to prevent or treat constipation: ? Drink enough fluid to keep your urine pale yellow. ? Take mhhc-sor-dolhedo or prescription medicines. ? Eat foods that [...] the National Suicide Prevention Lifeline at or 448. This is open 24 hours aday. ??? Text the Crisis Text Line at 519065. This information is not intended to replace advice given to you by your health care provider. Make sure you discuss any questions you have with your health care provider. Document Revised: 01/19/2023 Document Reviewed: 12/22/2022 Elsevier Patient Education ? 2023 D[employer]View Inc.[facility] 08-02-2024 Hospital Discharge instructions Patient Education 08/02/2024 [...] provider gives to you. In general: Take snwn-lvi-gjsxmir and prescription medicines only as told by [...] provider. Document Revised: 10/08/2021 Document Reviewed: 10/08/2021 DossierView Patient Education 2023 OpenWhere. 08/02/2024 19:06:33 Abdominal Pain, Adult Abdominal Pain, [...] Follow these instructions at home: Medicines Take nvsr-ycv-ndunvah and prescription medicines only as told by [...] provider. Document Revised: 03/16/2023 Document Reviewed: 03/16/2023 DossierView Patient Education 2023 OpenWhere. Follow Up Care 08/02/2024 14:42:18 With:Make sure to follow-up with your OBSTETRIC ASSISTANT at [facility]. Return to the emergency room if your pain gets worse or any new symptoms. Address:Unknown When:08/05/2024 18:40:00 [facility] 02-20-2025 NoteED Patient Education Note Gastroenterology Abdominal [...] these instructions at home: Medicines ??? Take xwdb-jxk-rmtnefl and prescription medicines only as told by [...] provider. Document Revised: 03/16/2023 Document Reviewed: 03/16/2023 DossierView Patient Education ? 2023 OpenWhere. Obstetrics and Gynecology Pelvic Mass, Female A [...] gives to you. In general: ??? Take qnlk-mwj-fugysxx and prescription medicines only as told by [...] tolerate prescribed medicines. (more content not included)... [facility]02-20-2025 Evaluation + Plan noteExtracted from: Title:ED Note [...] Panel Lipase Level UA with Cult Rflx [facility] [id number] Emergency department Note* Kandi Cruz RN - 08/01/2024 7:53 PM EST Pt in no distress at discharge. Discharge instructions given to and explained to pt. Pt verbalized understanding and denies needs and questions at this time. Pt ambulated with steady gait at discharge. [facility]02-19-2025 Emergency department Note* Kandi Cruz RN [...] 08/01/2024 7:20 PM EST Emergency Department Report [facility] Service Date:.08/01/24 PCP: No primary [...] ER hospitals over the last 3 weeks. (- [place], 2- [facility], 2-8 [facility], 2- [place], - [facility], - [facility], - [facility], - [facility], - [facility]). She is currently on Hydrocodone and Toradol. Patient states she is only here for pain control. She states a relative drove her to ER but they are not in room. Patient states the only medications that work are Fentanyl and Dilaudid. She states she is allergic to Morphine. She is suppose to have another surgery with Telecommunication Tower Technician but is waiting for opening. She states she was referred to chronic pain management but they have not seen her yet. She states OBSTETRIC ASSISTANT tells her to go to ER whenever [...] by Nasal route once for 1 dose. Ismay into the nose as directed. Call 911. [...] Insecurity: No Food Insecurity (07/27/2024) [facility] Within the past 12 months [...] file Social Connections: Unknown (03/22/2023) Received from [facility] Family and Community Support Help with Day-to-Day Activities: Not on file Lonely or Isolated: Not on file Personal Safety: Unknown (03/22/2023) Received from [facility] Abuse Screen Unsafe at Home or Work/School: Not on file Feels Threatened by Someone?: Not on file Does Anyone Keep You from Contacting Others or Doint Things Outside the Home?: Not on file Physical Sign of Abuse Present: Not on file Housing Stability: Unknown (03/22/2023) Received from [facility] Housing Stability Current Living Arrangements: Not on [...] YELLOW YELLOW Appearance, Urine CLEAR CLEAR Specific [place], Urine 1.010 1.010 - 1.025 PH URINE [...] 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 She just wanted to leave. I told her I can give her nonnarcotic medication and she refused. I encourage her to try to talk with OBSTETRIC ASSISTANT about a plan go forward to control [...] Konstantin Jain MD 08/01/241952 documented in this [facility]02-19-2025 Hospital Discharge instructions* Discharge Instructions* Konstantin Jain MD - 08/01/2024 7:43 PM EST Call your OBSTETRIC ASSISTANT and Chronic pain management tomorrow for follow up. * Attachments The following attachments cannot be sent through Care Everywhere. * Chronic Pain (Citizen [place]) documented in this [facility]02-19-2025 Emergency department Note* Kandi Cruz RN - 08/01/2024 7:22 PM EST Pt sts her step son brought her to ER and did not drive herself [facility]02-19-2025 Physician Emergency department Note* Konstantin Jain MD - 08/01/2024 7:20 PM EST Emergency [facility] Service Date:.08/01/24 PCP: No primary [...] hospitals over the last 3 weeks. (2-26 [place], 2-24 [facility], 2-[facility], 2-1 [place], 1-31 [facility], 1-29 [facility], 1-[facility], 1-15 [facility], 07-10 [facility]). She is currently on Hydrocodone and Toradol. Patient states she is only here for pain control. She states a relative drove her to ER but they are not in room. Patient states the only medications that work are Fentanyl and Dilaudid. She states she is allergic to Morphine. She is suppose to have another surgery with Telecommunication Tower Technician but is waiting for opening. She states she was referred to chronic pain management but they have not seen her yet. She states OBSTETRIC ASSISTANT tells her to go to ER whenever [...] by Nasal route once for 1 dose. Ismay into the nose as directed. Call 911. [...] Insecurity: No Food Insecurity (07/27/2024) Received from [facility] Hunger Screening Within the past 12 [...] file Social Connections: Unknown (03/22/2023) Received from [facility] Family and Community Support Help with Day-to-Day Activities: Not on file Lonely or Isolated: Not on file Personal Safety: Unknown (03/22/2023) Received from [facility] Abuse Screen Unsafe at Home or Work/School: Not on file Feels Threatened by Someone?: Not on file Does Anyone Keep You from Contacting Others or Doint Things Outside the Home?: Not on file Physical Sign of Abuse Present: Not on file Housing Stability: Unknown (03/22/2023) Received from [facility] Housing Stability Current Living Arrangements: Not on [...] YELLOW YELLOW Appearance, Urine CLEAR CLEAR Specific [place], Urine 1.010 1.010 - 1.025 PH URINE [...] 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 She just wanted to leave. I told her I can give her nonnarcotic medication and she refused. I encourage her to try to talk with OBSTETRIC ASSISTANT about a plan go forward to control [...] information. . . Konstantin Jain MD 08/01/241952 [facility]02-01-2025 Emergency department Note* Yakelin Calvert RN - 07/14/2024 7:29 PM EST Dc paperwork given and explained. Voices understanding. Voices no further needs at this time. Pt ambulated to hospital exit without difficulty. Ride here and waiting in hospital waiting room. [facility]02-01-2025 Emergency department Note* Yakelin Calvert RN - 07/14/2024 7:29 PM EST Dc paperwork given and explained. Voices understanding. Voices no further needs at this time. Pt ambulated to hospital exit without difficulty. Ride here and waiting in hospital waiting room. * Donya Romano MD - 07/14/2024 6:25 PM EST Emergency Department Report [facility] Service Date:.07/14/24 PCP: No [...] by Nasal route once for 1 dose. Ismay into the nose as directed. Call 911. [...] Insecurity: No Food Insecurity (07/13/2024) Received from [facility] Hunger Screening Within the past 12 [...] file Social Connections: Unknown (03/22/2023) Received from [facility] Family and Community Support Help with Day-to-Day Activities: Not on file Lonely or Isolated: Not on file Intimate Partner Violence: Unknown (03/22/2023) Received from [facility] Abuse Screen Unsafe at Home or Work/School: Not on file Feels Threatened by Someone?: Not on file Does Anyone Keep You from Contacting Others or Doint Things Outside the Home?: Not on file Physical Sign of Abuse Present: Not on file Housing Stability: Unknown (03/22/2023) Received from [facility] Housing Stability Current Living Arrangements: Not on [...] Romano MD 07/14/24 1839 [facility] Emergency department Note* Donya Romano MD - 07/14/2024 6:25 PM EST Emergency Department Report [facility] Service Date:.07/14/24 PCP: No [...] by Nasal route once for 1 dose. Ismay into the nose as directed. Call 911. [...] Insecurity: No Food Insecurity (07/13/2024) Received from [facility] Hunger Screening Within the past 12 [...] file Social Connections: Unknown (03/22/2023) Received from [facility] Family and Community Support Help with Day-to-Day Activities: Not on file Lonely or Isolated: Not on file Intimate Partner Violence: Unknown (03/22/2023) Received from [facility] Abuse Screen Unsafe at Home or Work/School: Not on file Feels Threatened by Someone?: Not on file Does Anyone Keep You from Contacting Others or Doint Things Outside the Home?: Not on file Physical Sign of Abuse Present: Not on file Housing Stability: Unknown (03/22/2023) Received from [facility] Housing Stability Current Living Arrangements: Not on [...] information. . Donya Romano MD 07/14/24 1839 [facility]01-30-2025 Hospital Discharge instructions* Discharge Instructions* Shalonda Bacon MD - 07/12/2024 1:41 AM EST Continue current medications as prescribed. Use [place] in place of Tylenol for pain not controlled with Tylenol. Flexeril every 8 hours to see if this helps. Heat or ice for 5 to 10-minute intervals as desired for comfort. May use kify-nyl-hxtjbwl product such as IcyHot Biofreeze or similar as needed and directed. Follow-up with your OBSTETRIC ASSISTANT provider soon as possible. Please return immediately for anyacute concerns * Attachments The following attachments cannot be sent through Care Everywhere. * Abdominal Pain (Citizen [place]) [facility] NoteEducation Materials Mental and Behavioral Health Chronic [...] skin (aromatherapy). Other treatments may include: ? Fyyp-lig-ozuiogk or prescription medicines. ? Color, light, or sound therapy. ? Local electrical stimulation. The electrical pulses help to relieve pain by temporarily stopping the nerve impulses that cause you to feel pain. ? Injections. These deliver numbing or pain-relieving medicines into the spine or the area of pain. Medicines ? Take fjga-moj-lqlwpkf and prescription medicines only as told by your health care provider. ? Ask your health care provider if the medicine prescribed to you: ? Requires you to avoid driving or using machinery. ? Can cause constipation. You may need to take these actions to prevent or treat constipation: ? Drink enough fluid to keep your urine pale yellow. ? Take idzg-qez-pxiesjz or prescription medicines. ? Eat foods that [...] room. ? Call 911. ? Call the National Suicide Prevention Lifeline at or 467. This is open 24 hours a day. ? Text the Crisis Text Line at 358933. This information is not intended to replace advice given to you by your health care provider. Make sure you discuss any questions you have with your health care provider. Document Revised: 01/19/2023 Document Reviewed: 12/22/2022 DossierView Patient Education ? [address] OpenWhere.[id number] Note Education Materials Gastroenterology Abdominal Pain, Adult [...] these instructions at home: Medicines ? Take qdbr-lyy-ragawik and prescription medicines only as told by [...] provider. Document Revised: 03/16/2023 Document Reviewed: 03/16/2023 DossierView Patient Education ? 2023 OpenWhere. Mental and Behavioral Health Chronic Pain, Adult [...] skin (aromatherapy). Other treatments may include: ? Yhmj-rhr-hnxazxl or prescription medicines. ? Color, light, or sound therapy. ? Local electrical stimulation. The electrical pulses help to relieve pain by temporarily stopping the nerve impulses that cause you to feel pain. ? Injections. These deliver numbing or pain-relieving medicines into the spine or the area of pain. Medicines ? Take rpwn-txo-nnjyekq and prescription medicines only as told by your health care provider. ? Ask your health care provider if the medicine prescribed to you: ? Requires you to avoid driving or using machinery. ? Can cause constipation. You may need to take these actions to prevent or treat constipation: ? Drink enough fluid to keep your urine pale yellow. ? Take bkyz-ghi-kdknqah or prescription medicines. ? Eat foods that [...] to help manage chron (more content not included)...[facility] [id number] Evaluation + Plan noteExtracted from: Title:ED Note [...] Panel Lipase Level UA with Cult Rflx [facility] 01-16-2025 Hospital Discharge instructions Patient Education 06/28/2024 01:38:52 Abdominal Pain, Adult, Kmvx-pb-Kudv Abdominal Pain, Adult Many things can cause belly (abdominal) pain. In most cases, belly pain is not a serious problem and can be watched and treated at home. But in some cases, it can be serious. Your doctor will try to find the cause of your belly pain. Follow these instructions at home: Medicines Take equm-wzm-lisbhhn and prescription medicines only as told by [...] provider. Document Revised: 03/16/2023 Document Reviewed: 03/16/2023 DossierView Patient Education 2023 OpenWhere. Follow Up Care 06/27/2024 21:47:06 With:WHILL Address: [facility] [place] [address] [facility] (1) When:07/01/2024 Comments:Please follow-up with your primary care doctor and [employer] for further evaluation and management. Return to the ED for any new or worsening symptoms. With:XXXX NONE Address: DC When:Within 3 Day(s) [facility] 01-16-2025 NoteED Patient Education Note Gastroenterology Abdominal Pain, Adult Many things can cause belly (abdominal) pain. In most cases, belly pain is not a serious problem and can be watched and treated at home. But in some cases, it can be serious. Your doctor will try to find the cause of your belly pain. Follow these instructions at home: Medicines ??? Take vcnp-fmo-vbvvzpr and prescription medicines only as told by [...] 03/16/2023 Document Reviewed: 03/16/2023 Elsevier Patient Education ? 2023 [employer] 06-27-2024 Hospital Discharge instructions* Discharge Instructions* Randee Richardson MD - 06/27/2024 3:16 PM EST Please call your [employer] and schedule follow-up visit. Continue taking your pain medications as prescribed. Return to the ER for any worsening symptoms or concerns * Attachments The following attachments cannot be sent through Care Everywhere. * Abdominal Pain (Citizen [place]) documented in this encounterBon [facility]01[facility] Hospital Discharge instructions Patient Education 06/25/2024 02:47:57 [...] Follow these instructions at home: Medicines Take excb-tyc-natmubx and prescription medicines only as told by [...] provider. Document Revised: 03/16/2023 Document Reviewed: 03/16/2023 DossierView Patient Education 2023 OpenWhere. Follow Up Care 06/24/2024 19:25:17 With:Ernie CHIRINOS Address: [address] [place], [place] [id number] Business (1) When:06/28/2024 [facility] 01-13-2025 NoteED Patient Education Note Gastroenterology [...] these instructions at home: Medicines ??? Take isff-xbj-ltxyjzh and prescription medicines only as told by [...] provider. Document Revised: 03/16/2023 Document Reviewed: 03/16/2023 DossierView Patient Education ? 2023 OpenWhere.[facility] 06-24-2024 Evaluation + Plan noteExtracted from: Title:ED Note Author:Ritesh Heath DO Date :06/24/24 Abdominal pain, acute (R10.9 : Unspecified abdominal pain) Ordered: acetaminophen-oxycodone, 1 tab(s), Oral, q8hr for 3 day(s), 9 tab(s), Refill(s) 0, [facility]/pharmacy #[id number], 165, cm, 06/24/24 19:33:00 EST, Height/Length [...] Beta Hcg Qual UA with Cult Rflx [facility] 12-30-2024 NoteEducation Materials Obstetrics and Gynecology [...] Follow these instructions at home: ? Take iwab-zcp-ahyowxp and prescription medicines only as told by [...] provider. Document Revised: 10/31/2020 Document Reviewed: 11/06/2020 DossierView Patient Education ? [address] [id number] Miscellaneous Notes* Telephone Encounter - Shefali Rodriguez - 06/11/2024 8:57 AM EST Software Licensing Executive left voicemail to schedule a H/F with Kendra in [place]. [facility] Tele[facility] encounter Note* Telephone Encounter - Shefali Rodriguez - 06/11/2024 8:57 AM EST Software Licensing Executive left voicemail to schedule a H/F with Kendra in [place]. [facility] jobandtalent [id number] Miscellaneous Notes* Telephone Encounter - Isabell Lentz - 06/09/2024 8:05 PM EST Contract: [address] [facility] [address] Huerta re abnormal CT, post-op Relayed info to Dr Woo on cell and transferred documented in this encounterRiverside [facility] HospitalCogniK [facility] [id number] Telephone encounter Note* Telephone Encounter - Isabell Lentz - 06/09/2024 8:05 PM EST Contract: [address] Huerta re abnormal CT, post-op Relayed info to Dr Woo on cell and transferred [facility] [id number] NoteEducation Materials Obstetrics and Gynecology Endometriosis Follow-up with your [employer] to review this emergency department visit and [...] these instructions at home: Medicines ? Take mogp-xkx-yrpndbh and prescription medicines only as told by your health care provider. ? Ask your health care provider if the medicine prescribed to you: ? Requires you to avoid driving or using machinery. ? Can cause constipation. You may need to take these actions to prevent or treat constipation: ? Drink enough fluid to keep your urine pale yellow. ? Take xqdj-ebg-mesibzr or prescription medicines. ? Eat foods that [...] important. Where to find more information ? [employer]: www.acog.org ? [...] vomiting, or you (more content not included)... [facility] [id number] Emergency department Note* Davi Rivas, DO - 03/03/2024 4:47 PM EDT Emergency Department Report [facility] Service Date:.03/03/24 PCP: No [...] for months. Patient states she has seen E[employer]PER[employer] specialist in [place], Dr. Mendoza, to have her uterus/hysterectomy secondary to endometriosis. Patient says that she then b etween PCPs at this point. Patient does have a OBGYN in [facility], Dr. Berrios. Patient states she is [...] by Nasal route once for 1 dose. Ismay into the nose as directed. Call 911. [...] Insecurity: No Food Insecurity (01/27/2024) Received from [facility] Hunger Screening Within the past 12 [...] file Social Connections: Unknown (03/22/2023) Received from [facility] Family and Community Support Help with Day-to-Day Activities: Not on file Lonely or Isolated: Not on file Intimate Partner Violence: Unknown (03/22/2023) Received from [facility] Abuse Screen Unsafe at Home or Work/School: Not on file Feels Threatened by Someone?: Not on file Does Anyone Keep You from Contacting Others or Doint Things Outside the Home?: Not on file Physical Sign of Abuse Present: Not on file Housing Stability: Unknown (03/22/2023) Received from [facility] Housing Stability Current Living Arrangements: Not on [...] to palpation. GI: Soft, patient does have odtx-nz-dumfdgdl tenderness to palpation over lower quadrant, no [...] Orders Placed This Encounter AMB REFERRAL TO OB-OBSTETRIC ASSISTANT AMB REFERRAL TO CHRONIC PAIN CLINIC hydroCODone-acetaminophen [...] YELLOW YELLOW APPEARANCE, URINE CLEAR CLEAR Specific [place], Urine 1.010 1.010 - 1.025 PH URINE [...] have definitive treatment from Dr. Aparicio's in [place] for her endometriosis and hysterectomy which patient [...] w/ steady gait documented in this [facility]09-21-2024 Physician Emergency department Note* Davi Rivas DO - 03/03/2024 4:47 PM EDT Emergency Department Report [facility] Service Date:.03/03/24 PCP: No [...] diarrhea. Patient denies urinary symptoms. HPI Antonia Dennys is a 39 y.o. female presents to the ED today due to acute on chronic pain. Patient ishaving acute on chronic pain for months. Patient states she has seen E[employer] specialist in [place], Dr. Herrs, to have her uterus/hysterectomy secondary to endometriosis. Patient says that she then b etween PCPs at this point. Patient does have a OBGYN in [facility], Dr. Berrios. Patient states she is [...] by Nasal route once for 1 dose. Ismay into the nose as directed. Call 911. [...] Insecurity: No Food Insecurity (01/27/2024) Received from [facility] Hunger Screening Within the past 12 [...] file Social Connections: Unknown (03/22/2023) Received from [facility] Family and Community Support Help with Day-to-Day Activities: Not on file Lonely or Isolated: Not on file Intimate Partner Violence: Unknown (03/22/2023) Received from [facility] Abuse Screen Unsafe at Home or Work/School: Not on file Feels Threatened by Someone?: Not on file Does Anyone Keep You from Contacting Others or Doint Things Outside the Home?: Not on file Physical Sign of Abuse Present: Not on file Housing Stability: Unknown (03/22/2023) Received from [facility] Housing Stability Current Living Arrangements: Not on [...] to palpation. GI: Soft, patient does have osnp-us-rtxbdsfw tenderness to palpation over lower quadrant, no [...] Orders Placed This Encounter AMB REFERRAL TO OB-OBSTETRIC ASSISTANT AMB REFERRAL TO CHRONIC PAIN CLINIC hydroCODone-acetaminophen [...] YELLOW YELLOW APPEARANCE, URINE CLEAR CLEAR Specific [place], Urine 1.010 1.010 - 1.025 PH URINE [...] have definitive treatment from Dr. Aparicio's in [place] for her endometriosis and hysterectomy which patient [...] . . Davi Rivas DO 03/03/24 1706 [facility]09-21-2024 Emergency department Note* Geri Burciaga RN [...] ambulatory out of ED w/ steady gait [facility]09-21-2024 Hospital Discharge instructions* Discharge Instructions* Davi Rivas DO - 03/03/2024 4:[address] Wilson, your OBGYN in [place] to see if your appointment may be moved up. Call Dr. Braden in [place] on Tuesday to see if they will [...] to you as well. [facility] Emergency department Note* Ashley Delcid MD - 02/24/2024 11:24 PM EDT Emergency Department Report [facility] Service Date:.02/25/24 PCP: No [...] has a history of endometriosis. Follows with director selection and administration in [place]. States she is waitingto be scheduled for a total hysterectomy. Last saw them in November as per records. She explains they just have not scheduled it yet but she is in constant pain. Review of records shows similar presentation at outlying facilities. Is here in [place] helping grandmother pack up to move to [place] with the rest of the family Review [...] by Nasal route once for 1 dose. Ismay into the nose as directed. Call 911. [...] Insecurity: No Food Insecurity (01/27/2024) Received from [facility] Hunger Screening Within the past 12 [...] file Social Connections: Unknown (03/22/2023) Received from [facility] Family and Community Support Help with Day-to-Day Activities: Not on file Lonely or Isolated: Not on file Intimate Partner Violence: Unknown (03/22/2023) Received from [facility] Abuse Screen Unsafe at Home or Work/School: Not on file Feels Threatened by Someone?: Not on file Does Anyone Keep You from Contacting Others or Doint Things Outside the Home?: Not on file Physical Sign of Abuse Present: Not on file Housing Stability: Unknown (03/22/2023) Received from [facility] Housing Stability Current Living Arrangements: Not on [...] YELLOW YELLOW APPEARANCE, URINE CLEAR CLEAR Specific [place], Urine 1.010 1.010 - 1.025 PH URINE [...] I offered to contact her physician in [place] and see if I could transfer her [...] like her to call her Doctor in [place] for possible transfer. Pt refuses. Pt states [...] home if discharged documented in this [facility]09-13-2024 Physician Emergency department Note* Ashley Delcid MD - 02/24/2024 11:24 PM EDT Emergency Department Report [facility] Service Date:.02/25/24 PCP: No [...] has a history of endometriosis. Follows with director selection and administration in [place]. States she is waitingto be scheduled for a total hysterectomy. Last saw them in November as per records. She explains they just have not scheduled it yet but she is in constant pain. Review of records shows similar presentation at outlying facilities. Is here in [place] helping grandmother pack up to move to [place] with the rest of the family Review [...] by Nasal route once for 1 dose. Ismay into the nose as directed. Call 911. [...] Insecurity: No Food Insecurity (01/27/2024) Received from [facility] Hunger Screening Within the past 12 [...] file Social Connections: Unknown (03/22/2023) Received from [facility] Family and Community Support Help with Day-to-Day Activities: Not on file Lonely or Isolated: Not on file Intimate Partner Violence: Unknown (03/22/2023) Received from [facility] Abuse Screen Unsafe at Home or Work/School: Not on file Feels Threatened by Someone?: Not on file Does Anyone Keep You from Contacting Others or Doint Things Outside the Home?: Not on file Physical Sign of Abuse Present: Not on file Housing Stability: Unknown (03/22/2023) Received from [facility] Housing Stability Current Living Arrangements: Not on [...] YELLOW YELLOW APPEARANCE, URINE CLEAR CLEAR Specific [place], Urine 1.010 1.010 - 1.025 PH URINE [...] I offered to contact her physician in [place] and see if I could transfer her [...] information. . Ashley Delcid MD 02/25/24 0355 [facility]09-13-2024 Emergency department Note* Geri Burciaga RN - 02/24/2024 11:21 PM EDT AMA form signed. Pt aware of risks and refuses hospital admission. Pt states grandmother is at facility to transport her home. Denies further needs at this time. Pt is a&o respirations are even and unlabored. Pt ambulatory out of ED w/ steady gait [facility]09-13-2024 Emergency department Note* Geri Burciaga RN [...] like her to call her Doctor in [place] for possible transfer. Pt refuses. Pt states she does not want to be admitted anywhere and states will sign AMA form and call her pcp in the morning. [facility]09-13-2024 Emergency department Note* Geri Burciaga RN - 02/24/2024 9:46 PM EDT Pt states pain has not improved after dilaudid administration. Dr. Delcid made aware [facility]09-13-2024 Emergency department Note* Geri Burciaga RN - 02/24/2024 9:20 PM EDT Pt states her grandmother will transport her home if discharged [facility]09-05-2024 Emergency department Note* Una Levy RN - 02/16/2024 5:12 PM EDT Discharge instructions provided. Patient verbalized understanding. Denies any questions or concernsprior to discharge. Ambulatory out of ED with Rx X2. [facility]09-05-2024 Emergency department Note* Una Levy RN [...] 02/16/2024 1:48 PM EDT Emergency Department Report [facility] Service Date:.02/16/24 PCP: No [...] by Nasal route once for 1 dose. Ismay into the nose as directed. Call 911. [...] Insecurity: No Food Insecurity (01/27/2024) Received from [facility] Hunger Screening Within the past 12 [...] file Social Connections: Unknown (03/22/2023) Received from [facility] Family and Community Support Help with Day-to-Day Activities: Not on file Lonely or Isolated: Not on file Intimate Partner Violence: Unknown (03/22/2023) Received from [facility] Abuse Screen Unsafe at Home or Work/School: Not on file Feels Threatened by Someone?: Not on file Does Anyone Keep You from Contacting Others or Doint Things Outside the Home?: Not on file Physical Sign of Abuse Present: Not on file Housing Stability: Unknown (03/22/2023) Received from [facility] Housing Stability Current Living Arrangements: Not on file Potentially Unsafe Housing Conditions: Not on file Physical Exam: Physical Exam CONST: -Well-developed well-nourished ; -In no acute distress. -Vitals reviewed. EYES: -EOM intact, KOLBY: -Sclera normal and conjunctiva: clear bilaterally. ENT: - Normal pharynx pink and moist. NECK: -Supple (fenw-mn-eudls). CARD: -Rate and rhythm: Regular -Murmurs: No [...] by Nasal route once for 1 dose. Ismay into the nose as directed. Call 911. [...] information. . . Jennifer Moore MD 02/16/24 [id number] documented in this [facility]09-05-2024 Hospital Discharge instructions* Discharge Instructions* Jennifer Moore MD - 02/16/2024 4:52 PM EDT Tylenol for moderate pain. Full liquid diet for 2 days. * Attachments The following attachments cannot be sent through Care Everywhere. * Abdominal Pain (Citizen [place]) documented in this [facility]09-05-2024 Emergency department Note* Una Levy RN - 02/16/2024 3:40 PM EDT Patient states that pain is getting worse again. Dr Moore notified. No new orders received at this time. States he is waiting for CT results. Patient updated on plan. [facility]09-05-2024 Emergency department Note* Tangela Guajarod RN - 02/16/2024 3:10 PM EDT Pt taken to CT scan [facility]09-05-2024 Physician Emergency department Note* Jennifer Moore MD - 02/16/2024 1:48 PM EDT Emergency Department Report [facility] Service Date:.02/16/24 PCP: No [...] by Nasal route once for 1 dose. Ismay into the nose as directed. Call 911. [...] Insecurity: No Food Insecurity (01/27/2024) Received from [facility] Hunger Screening Within the past 12 months [...] file Social Connections: Unknown (03/22/2023) Received from [facility] Family and Community Support Help with Day-to-Day Activities: Not on file Lonely or Isolated: Not on file Intimate Partner Violence: Unknown (03/22/2023) Received from [facility] Abuse Screen Unsafe at Home or Work/School: Not on file Feels Threatened by Someone?: Not on file Does Anyone Keep You from Contacting Others or Doint Things Outside the Home?: Not on file Physical Sign of Abuse Present: Not on file Housing Stability: Unknown (03/22/2023) Received from [facility] Housing Stability Current Living Arrangements: Not on file Potentially Unsafe Housing Conditions: Not on file Physical Exam: Physical Exam CONST: -Well-developed well-nourished ; -In no acute distress. -Vitals reviewed. EYES: -EOM intact, KOLBY: -Sclera normal and conjunctiva: clear bilaterally. ENT: - Normal pharynx pink and moist. NECK: -Supple (wbcy-ue-iomjw). CARD: -Rate and rhythm: Regular -Murmurs: No [...] by Nasal route once for 1 dose. Ismay into the nose as directed. Call 911. [...] information. . . Jennifer Moore MD 02/16/241654 [facility]09-02-2024 Evaluation + Plan noteExtracted from: Title:ED Note Author:Ritesh Heath DO Date :02/13/24 Pain, dental (K08.89: Other specified disorders of teeth and supporting structures) Orders: amoxicillin-clavulanate, 1 tab(s), Oral, q12hr for 7 day(s), 14 tab(s), Refill(s) 0, [facility]/pharmacy #[id number], 165.1, cm, 02/13/24 0:28:00 EDT, Height/Length Dosing, 87.3, kg, 02/13/24 0:28:00 EDT, Weight Dosing benzocaine topical, 1 luis, Gel, Topical, QID for 30 day(s), Stop date 03/14/24 0:42:00 EDT, STAT, Start date 02/13/24 0:43:00 EDT lidocaine topical, 200 mg, 10 mL, Soln-Oral, Oral, Once, Stop date 02/13/24 0:43:00 EDT, STAT, Start date 02/13/24 0:43:00 EDT [facility] 09-02-2024 Hospital Discharge instructions Patient Education [...] or after getting dental care. Medicines Take hfnn-uot-slgepfa and prescription medicines only as told by [...] pain may be mild or severe. Take mjmw-sjc-lpuczwd and prescription medicines only as told by [...] provider. Document Revised: 03/04/2021 Document Reviewed: 03/04/2021 DossierView Patient Education 2023 OpenWhere. Follow Up Care 02/13/2024 00:22:40 With:Dental: [facility] [phone] Address:Unknown When:02/16/2024 With:[facility]: [employer] [facility] [phone] Address:Unknown When:02/16/2024 With:Dental: [facility] [phone] Address:Unknown When:02/16/2024 [facility] 09-02-2024 NoteED Patient Education Note Dentistry [...] after getting dental care. Medicines ? Take osom-kfk-gvdluav and prescription medicines only as told by [...] may be mild or severe. ? Take ikbb-jdy-zsgdwfi and prescription medicines only as told by [...] provider. Document Revised: 03/04/2021 Document Reviewed: 03/04/2021 [employer] Patient Education ? 2023 OpenWhere.[facility] 01-22-2024 Hospital Discharge instructions* Discharge Instructions* Eren [...] Everywhere. * Ovarian Cyst: Functional (Citizen Of [place]) documented in [facility] Evaluation note* Author Jennifer Duran [facility] Authored January 19, 2024 11: 44am The above note written by __ _Polly Collado____ acting as human recorder, note dictated by Dr. Mcfadden .I performed the above HPI, ROS, and Examination. I formulated and dictated the treatment plan and was present for entire encounter. Jennifer Duran D.O. [facility] Work Phone: 1(336) 653-900405-28-2024 Hospital Discharge instructions* Discharge Instructions* Eren Camejo DO - 11/08/2023 12:01 PM EDT Use clindamycin as prescribed. Continue the pain medicine that you have at home as needed for pain.Follow-up with dentist as scheduled * Attachments The following attachments cannot be sent through Care Everywhere. * Tooth and Gum Pain (Citizen Of [place]) documented in this [facility]05-07-2024 Evaluation note* Author Jennifer Duran [facility] Authored October 18, 2023 3:45pm The above note written by __ _Polly Collado____ acting as human recorder, note dictated by Dr. Mcfadden .I performed the above HPI, ROS, and Examination. I formulated and dictated the treatment plan and was present for entire encounter. Jennifer Duran D.O. [facility] Work Phone: 1(525) 828-552604-19-2024 Evaluation + Plan noteExtracted from: Title:ED Note [...] Diagnostic Tests Pending * Urine Culture 09/30/23 [facility]04-19-2024 Hospital Discharge instructions Patient Education 09/30/2023 [...] (oophorectomy). Follow these instructions at home: Take aeqz-pmx-fhoyqce and prescription medicines only as told by [...] provider. Document Revised: 11/06/2020 Document Reviewed: 11/06/2020 DossierView Patient Education 2022 OpenWhere. Follow Up Care 09/29/2023 23:40:10 With:Rose Royal Address: [address] [place] [address]- Business (1) When:10/03/2023 [facility]04-15-2024 Hospital Discharge instructions Follow Up Care 09/26/2023 13:55:08 With:[employer] [facility] Address: [address] [place] [address]- Business (1) When:09/29/2023 17:49:12 With:Tarun BRADEN Address: [address] [place] [address]- Business (1) When:09/29/2023 17:49:03 With:XXXX NONE Address: [place] When:Within 3 Day(s) [facility]04-15-2024 Evaluation + Plan noteExtracted from: Title:ED Note Author:Fredrick GRULLON Student, Sujey Dee Date:09/26/23 Abdominal pain (R10.9: Unspe cified abdominal [...] q12hr, # 20 tab(s), Refills(s) 0, Pharmacy: [facility]/pharmacy #[id number], 165, cm, 09/26/23 14:18:00 EDT, Height/Length Dosing, 81.2, kg, 09/26/23 14:18:00 EDT, Weight Dosing hyoscyamine, 0.125 mg = 1 tab(s), Oral, QID, X 5 day(s), # 20 tab(s), Refills(s) 0, Pharmacy: [facility]/pharmacy #[id number], 165, cm, 09/26/23 14:18:00 EDT, Height/Length Dosing, 81.2, kg, 09/26/23 14:18:00 EDT, Weight Dosing ketorolac, 30 mg = 1 mL, Injection, IV, Once, Stop date 09/26/23 15:40:00 EDT, STAT, Start date 09/26/23 15:40:00 EDT, 09/26/23 15:40:00 EDT polyethylene glycol 3350, 17 gm, Oral, Daily, X 7 day(s), # 119 gm, Refills(s) 0, Pharmacy: [facility]/pharmacy #[id number], 165, cm, 09/26/23 14:18:00 EDT, Height/Length Dosing, 81.2, kg, 09/26/23 14:18:00 EDT, Weight Dosing Beta hCG Qual CBC w/ Auto Diff Comprehensive Metabolic Panel CT Abdomen/Pelvis w/ Contrast Drug Screen Urine eGFR Extra Blue Tube Extra SST Tube Lipase Level UA with Cult Rflx US Pelvis Non-OB Complete US Transvaginal Non-OB [facility]02-18-2024 Hospital Discharge instructions Patient Education 07/31/2023 [...] Follow these instructions at home: Medicines Take tapb-tcn-grmxlne and prescription medicines only as told by [...] Watch your condition for any changes. Take uzgr-quk-psdyscy and prescription medicines only as told by [...] provider. Document Revised: 07/18/2020 Document Reviewed: 10/08/2019 DossierView Patient Education 2022 OpenWhere. Follow Up Care 07/31/2023 15:34:13 With:Follow-up with your ELECTRICIAN SUPERVISOR SUBSTATION at [facility] Address:Unknown When:08/03/2023 17:52:19 Comments:Call the office [...] weakness, or any new or worsening symptoms. [facility]02-15-2024 Evaluation note* Author Jennifer Duran [facility] Authored July 28, 2023 1:18pm The above note written by __ _Polly Collado____ acting as human recorder, note dictated by Dr. Mcfadden .I performed the above HPI, ROS, and Examination. I formulated and dictated the treatment plan and was present for entire encounter. Jennifer Duran D.O. [facility] Work Phone: 1(161) 238-239402-06-2024 Evaluation note* Encounter Date Diagnosis Assessment Notes Treatment Notes Treatment Clinical Notes Jul, Anxiety (ICD-10 - F41.9) [facility] Other 02-06-2024 Evaluation note* Encounter Date Diagnosis [...] with her specialist through the [facility] and is scheduled at the end of this month (July) and is hoping to have a total hysterectomy. [facility] Other 12-26-2023 Evaluation note* Encounter Date Diagnosis Assessment Notes Treatment Notes Treatment Clinical Notes May, Cough (ICD-10 - R05.9) [facility] Other 12-04-2023 Evaluation note* Encounter Date Diagnosis Assessment Notes Treatment Notes Treatment Clinical Notes May, Anxiety (ICD-10 - F41.9) [facility] Other 11-12-2023 Hospital Discharge instructions Patient Education [...] Follow these instructions at home: Medicines Take tiju-mpb-injnsdf and prescription medicines only as told by [...] Watch your condition for any changes. Take mlpw-zzd-qpatogf and prescription medicines only as told by [...] provider. Document Revised: 07/18/2020 Document Reviewed: 10/08/2019 DossierView Patient Education 2022 OpenWhere. Follow Up Care 04/24/2023 13:13:55 With:YOUR OBGYN at [facility] Address:Unknown When:04/27/2023 15:50:22 Comments:Seek immediate medical [...] develop any new or worsening symptoms. 3. [facility]11-12-2023 Evaluation + Plan noteExtracted from: Title:ED Note Author:Jignesh Dumont DO Date:06/24/22 Abdominal pain, acute, left lower quadrant (R10.32: Left lower quadrant pain) Ordered: oxycodone, 5 mg = 1 cap(s), Oral, q6hr, PRN Pain 8-10, X 3 day(s), # 12 cap(s), Refills(s) 0, Pharmacy: [facility]/pharmacy #[id number], 165.1, cm, 04/24/23 13:32:00 EST, Height/Length [...] Saline Lock Insert UA With Cult Reflex [facility]11-06-2023 Evaluation note* Encounter Date Diagnosis Assessment [...] with her specialist at the [facility] in June (2023) which was the soonest they could get her in. She is hoping that they will at least remove the ovary but she is willing to have a total hysterectomy if they will do it. 1:13 PM - 1:20 PM [facility] Other 10-20-2023 Evaluation note* Encounter Date Diagnosis Assessment Notes Treatment Notes Treatment Clinical Notes Mar, Anxiety (ICD-10 - F41.9) [facility] Other 10-17-2023 Progress note Author Christi Aquino [facility] March 29, 2023 4:11pm Note Date/Time March 29, 2023 1 1:35am [facility] [address] [place] [address] Progress Note Signed with Addenda Patient: Antonia Noyola MR#: [id number] : 1985 Acct:[id number] Age/Sex: 38 / F Adm Date: 3 Loc: 3T Room: [address] [place] [address] Type: ADM IN Attending Dr: Christi Aquino MD Copies to: ~ ADDENDUM1 Upon re-evaluation in the afternoon, patient feels better and would like to go home. Prescribed pain medications as needed as directed. Advised to continue to follow up with [facility] staff wad blanking press adjuster. 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 wad blanking press adjuster eval requested for further evaluation. Patient has complex wad blanking press adjuster hx and been followed at [facility]. Afebrile here, no leukocytosis or obvious evidence of infectious process. Placed on Pain meds regimen IV and PO. Ongoing monitoringfor now. Documented By: Christi Aquino MD 03/29/23 11 32 Signed By: <Electronically signed by Christi Aquino MD> 03/29/23 [id number] [facility] Work Phone: 1(266) 645-517710-17-2023 History and physical note Author Megan Muniz [facility] March 29, 2023 7:29am Note Date/Time March 29, 2023 7 :29am [facility] [address] [place] [address] Hospitalist H&P Signed Patient: Antonia Noyola MR#: [id number] : 1985 Acct:[id number] Age/Sex: 38 / F Adm Date: 3 Loc: Room: [address] [place] [address] Type: ADM IN Attending Dr: Christi Aquino MD Copies to: Jennifer Duran,MD Megan Ricardo MD~ HPI DATE OF EXAMINATION: 10/17/23 CHIEF COMPLAINT: Abdominal pain HISTORY OF PRESENT [...] findings. The patient case was discussed with ELECTRICIAN SUPERVISOR SUBSTATION, who was not convinced that left ovarian [...] Previous records in the computer system reviewed [facility] Medical History Anemia Endometriosis Surgical History History [...] % (Auto) 42.8 % (.) 03/29/23 01:40 [place] % (Auto) 7.3 % (.) 03/29/23 01:40 Eos % (Auto) 1.8 % (.) 03/29/23 01:40 Baso % (Auto) 1.3 % (.) 03/29/23 01:40 Nucleat RBC Rel Count 0.1 /100 WBC (0-0.5) 03/29/23 01:40 Neut # (Auto) 3.5 x10E3/uL (1.8-7.7) 03/29/23 01:40 Lymph # (Auto) 3.2 x10E3/uL (1.00-4.8) 03/29/23 01:40 [place]ler # (Auto) 0.6 x10E3/uL (0.0-0.8) 03/29/23 01:40 [...] pH 7.5 (5.0-9.0) 03/29/23 02:53 Ur Specific [place] 1.003 (1.001-1.030) 03/29/23 02:53 Urine Protein Negative [...] she does have tachycardia We will consult ELECTRICIAN SUPERVISOR [employer]STATION Check lactic acid 2. Microcytic iron deficiency [...] <Electronically signed by Megan Muniz MD> 03/29/23728 [facility] Work Phone: 1(847) 538-955708-02-2023 Evaluation note* Encounter Date Diagnosis Assessment Notes [...] relief. She would need to see an peer specialist for this. She is agreeable to [...] an appointment to see Dr. Castillo again. [facility] Other 06-29-2023 Evaluation note* Encounter Date Diagnosis Assessment Notes Treatment Notes Treatment Clinical Notes Nov, Acute sinusitis (ICD-10 - J01.90) Nov, Cough (ICD-10 - R05.9) [facility] Other 05-01-2023 Evaluation note* Encounter Date Diagnosis [...] no discrepancies noted. Rx was called into [facility], spoke with Chad TOWNSEND, the Xanax 0.25 MG tablets are out of stock currently so her dose was increased to 0.5 MG and she was instructed to take 1/2 tablet q8-12 hours as needed. Only 12 tablets were called in. Pt voiced understanding when notified of this change. October, Other 3:17 PM - 3:23 PM [facility] Other 04-12-2023 Evaluation note* Encounter Date Diagnosis [...] Sep, Other 12:46 PM - 12:51 PM [facility] Other 01-30-2023 Evaluation note* Encounter Date Diagnosis Assessment Notes Treatment Notes Treatment Clinical Notes Jun, Anxiety (ICD-10 - F41.9) [facility] Other 01-30-2023 Evaluation note* Encounter Date Diagnosis [...] Side effects/risks/benefi ts of medication were reviewed. [facility] Other 12-21-2022 Evaluation note* Encounter Date Diagnosis [...] May, Other 3:27 PM - 3:32 PM [facility] Other 11-18-2022 Miscellaneous Notes* Telephone Encounter - Tabby Steele Ma - 04/30/2022 2:25 PM EST CMP if needed. Tabby Steele Ma documented [facility]* Encounter Date Diagnosis Assessment Notes Treatment Notes Treatment Clinical Notes Mar, Anxiety (ICD-10 - F41.9) [facility] Other 10-31-2022 Evaluation note* Encounter Date Diagnosis [...] since she has been getting the infusions. 31 Oct, 2022 Other She voices that next on her to do list is to get her liver ultrasound done and then return to see her ELECTRICIAN SUPERVISOR SUBSTATION at the [facility] because she feel she has another ovarian cyst. [facility] Other 10-28-2022 Miscellaneous Notes* Allied Health - [...] PAGER/CONTACT #: documented in [facility] Miscellaneous Notes* Telephone Encounter - MARY Narvaez - 03/15/2022 12:04 PM EDT Patient appears on the First Time Treatment List for a non-oncology treatment. No psychosocial assessment is indicated. JANNA Narvaez documented in this encounterMer[facility] NoteHNO ID: [id number] Author: Madyson Ni APRN.PIOTR Service: ? 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 Recent laboratories from [facility] October 04, 2020 show hemoglobin of 11.6 [...] and removal ovarian cyst (more content not included)...[facility]09-28-2022 History of Present illness Narrative* Madyson APRN. PercyOYSTER GROWER - 03/10/2022 2:00 PM EDT Images from the original note were not included. NAME: Antonia Noyola NO.: [id number] DATE OF SERVICE: March 10, 2022 (Elements copied from Dr. 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 Recent laboratories from [facility] October 04, 2020 show hemoglobin of11.6 but [...] Hyperlipidemia Father Heart Father bypass surgery, stents, [place] Madyson Ni APRN.OYSTER GROWER [facility] [place], [place] CC: Dr. Jennifer Duran [address] [place] [phone] I spent a total of 30 minutes on the date of the service which included preparing to see the patient, fbac-xy-ypwm patient care, completing clinical documentation, obtaining and/or reviewing separately obtained history, performing a medically appropriate examination, counseling and educating the pat ient/family/caregiver, ordering medications, tests, or procedures, independently interpreting results (not separately reported), and communicating results to the patient/family/caregiver. documented in this encounterMer[facility]09-[facility]-2022 Miscellaneous Notes* Telephone Encounter - Meaghan Ordonez - 02/18/2022 3:14 PM EDT Patient has an appt on 02/23. Would you like labs? documented in this encounterMer[facility]2022 Evaluation note* Encounter Date Diagnosis Assessment Notes Treatment Notes Treatment Clinical Notes Feb, Iron deficiency anemia (ICD-10 - D50.9) Feb, Elevated liver enzymes (ICD-10 - R74.8) [facility] Other 07-28-2022 Evaluation note* Encounter Date Diagnosis Assessment Notes Treatment Notes Treatment Clinical Notes Dec, Anxiety (ICD-10 - F41.9) [facility] Other 06-24-2022 Hospital Discharge instructions Patient Education [...] develop this condition: Playing sports that include wahz-we-dijk contact with others. Having a skin condition [...] Follow these instructions at home: Medicines Take dckz-yba-hpcarcb and prescription medicines only as told by [...] 06/20/2015 Document Revised: 07/10/2019 Document Reviewed: 06/21/2017 DossierView Patient Education 2020 OpenWhere. 12/04/2021 13:59:11 Sinusitis, Adult Sinusitis, Adult Sinusitis [...] at home: Medicines Take, use, or apply xoaq-mwc-issfske and prescription medicines only as told by [...] and water are not available, use hand medical device assembler. Do not smoke. Avoid being around people [...] 05/30/2006 Document Revised: 10/30/2018 Document Reviewed: 10/30/2018 DossierView Patient Education 2020 OpenWhere. 12/04/2021 13:59:10 BMI for Adults BMI for [...] 02/08/2005 Document Revised: 05/12/2018 Document Reviewed: 04/12/2018 DossierView Patient Education 2019 OpenWhere. [facility] 05-06-2022 Evaluation note* [...] October, Other 8:28 AM - 8:35 AM [facility] Other 03-01-2022 Evaluation note* Encounter Date Diagnosis Assessment Notes Treatment Notes Treatment Clinical Notes Aug, Cough (ICD-10 - R05) [facility] Other 02-21-2022 Evaluation note* Encounter Date Diagnosis [...] Jul, Other 5:43 PM - 5:48 PM [facility] Other 12-06-2021 Evaluation note* Encounter Date Diagnosis [...] May, Other 4:25 PM - 4:38 PM [facility] Other 11-09-2021 Evaluation note* Encounter Date Diagnosis [...] R63.5) Her TSH is normal at 1.04. [facility] Other 10-07-2019 History general Narrative - Reported* Type Description Date Medical History endometriosis 2012 Medical History Echocardiogram [facility] [employer] [facility] [employer] Normal, ejection fraction 60-65% Medical History MRI Brain 03-21-19 [facility] [employer] [facility] [employer], Normal Medical History anxiety Medical History pneumonia 06/2019 Surgical History Cholecystectomy Surgical History gal bladder removed 2008 Surgical History ablation - endometri osis removed off ovaries Dr Lentz 2012 Surgical History ovarian torsion 2014 Surgical History MRI pelvis 2018 Surgical History ovarian cyst removed 06/2018 Hospitalization History see above [facility] Other Consult note Author Jameel Hatfield [facility] April 28, 2022 8:22am Note Date/Time April 28, 2022 8:22am [facility] [address] [place] [address] ELECTRICIAN SUPERVISOR SUBSTATION Consult Note Signed Patient: Antonia Noyola MR#: [id number] : 1985 Acct:[id number] Age/Sex: 37 / F Adm Date: 2 Loc: Room: [address] [place] [address] Type: ADM INOo Attending Dr: Kiko Saenz [...] Last Admin: 04/28/22 04:43 Dose: 10 ml OBSTETRIC ASSISTANT - Exam Physical Exam Vital signs: Temp 97.7 F 04/28/22 04:18 Pulse 95 H 04/28/22 04:18 Resp 16 04/28/22 04:18 BP 136/95 04/28/22 04:18 Pulse Ox 100 04/28/22 04:18 O2 Del Method Room Air 04/28/22 04:18 Constitutional Constitutional: no acute distress Routine Respiratory Exam Respiratory: Absent respiratory distress Routine Abdominal Exam Abdominal: Present soft, normoactive bowel sounds and tenderness; Absent reboundor guarding OBSTETRIC ASSISTANT - Results Laboratory Results - Last 48 hrs. 04/28/22 02:00: Urine Color Yellow, Urine Appearance Cloudy A, Urine pH 6.5, Ur Specific [place] 1.005, Urine Protein Negative, Urine Glucose (UA) [...] Creatinine Clear 132.36, Sodium 137, Potassium 3.7, [id number], Carbon Dioxide 21.1 L, Anion Gap 14.6, [...] % (Auto) 64.6, Lymph % (Auto) 28.9, Candler % (Auto) 4.5, Eos % (Auto) 1.0, Baso % (Auto) 1.0, Neut # (Auto) 5.1, Lymph # (Auto) 2.3, Candler # (Auto) 0.4, Eos # (Auto) 0.1, Baso # (Auto) 0.1, Nucleated RBC % (auto) 0.0, Platelet Estimate Normal, Plt Morphology Comment Normal, RBC Morphology N/A, Polychromasia Slight, Hypochromasia Slight, Poikilocytosis Moderate, Anisocytosis Marked, Tear Drop Cells Slight, Ovalocytes Moderate OBSTETRIC ASSISTANT - A/P (1) Intractable abdominal pain: Code(s): [...] And I suggested she follow-up with her retail account representative at the [facility]. Code(s): N83.202 - Unspecified ovarian cyst, left side Status: Acute Documented By: JAMEEL HATFIELD MD 04/28/22816 Signed By: <Electronically signed by MD JAMEEL HATFIELD> 04/28/22821 [facility] Work Phone: Evaluation + Plan note No data available for this section [facility] Evaluation noteNo assessment information available [facility] Work Phone: Evaluation noteNo InformationNort Youneeq Other Evaluation note* Diagnosis Iron deficiency anemia due to chronic blood loss- Primary Iron deficiency anemia secondary to blood loss (chronic) documented in this 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* Diagnosis Onset Date Resolution Status Abdominal pain acute Ovarian cyst acute [facility] Work Phone: Evaluation note* Diagnosis Onset Date Resolution Status Abdominal pain acute Endometriosis acute Ovarian cyst acute [facility] Work Phone: Evaluation note* Author eJnnifer Duran [facility] Authored July 28, 2023 12:18pm The above note written by __ _Polly Collado____ acting as human recorder, note dictated by Dr. Mcfadden .I performed the above HPI, ROS, and Examination. I formulated and dictated the treatment plan and was present for entire encounter. Jennifer Duran D.O. [facility] Work Phone: Evaluation note* Diagnosis Toothache- Primary Unspecified disorder of the teeth and supporting structures documented in this encounter [facility] note* Diagnosis Onset Date Resolution Status Anxiety acute Tachycardia acute [facility] Work Phone: Evaluation note* Diagnosis Cyst of left ovary- Primary Other and unspecified ovarian cyst documented in this encounter [facility] note* Diagnosis Lower abdominal pain Abdominal pain, other specified site documented in this encounter [facility] note* Diagnosis Pelvic pain- Primary Unspecified symptom associated with female genital organs documented in this encounter [facility] note* Diagnosis RLQ abdominal pain- Primary Abdominal pain, right lower quadrant Pelvic joint pain, right documented in this encounter [facility] note* Diagnosis Abdominal pain, right lower quadrant- Primary documented in this encounter [facility] note* Diagnosis Generalized abdominal pain- Primary Abdominal pain, generalized documented in this encounter [facility] note* Diagnosis Pelvic and perineal pain- Primary Unspecified symptom associated with female genital organs Endometriosis Endometriosis, site unspecified Ovarian remnant syndrome Other noninflammatory disorder of ovary, fallopian tube, and broad ligament documented in this encounter [facility] note* Diagnosis Chronic pelvic pain in female- Primary Unspecified symptom associated with female genital organs Right lower quadrant abdominal pain Abdominal pain, right lower quadrant documented in this encounter [facility] note* Diagnosis Encounter for chronic pain management- Primary documented in this encounter [facility] note* Diagnosis Onset Date Resolution Status Admit Date Acute cough acute September 03, 2 025 2:02pm Acute sinusitis acute August 2:02pm [facility] Work Phone: Hospital Discharge instructions Additional Instructions Please arrange a follow-up appointment with your [facility] retail account representative.[facility] Work Phone: Hospital Discharge instructions Additional Instructions Take Motrin and Tylenol as needed for mild to moderate pain. Take oxycodone as prescribed for severe pain. Follow-up with Dr. Ness or Dr. Grayson in the office regarding further treatment with a GnRH [facility] Work Phone: Hospital Discharge instructions Additional Instructions Take [place] as needed for severe pain, do not drink, drive, operate heavy machinery while taking Continue clindamycin as previously ordered by her dentist Return to emergency room for fever or chills, or dental abscess Follow-up with dentist and oral surgeon as scheduled[facility] Work Phone: Hospital Discharge instructionsAmbulatory Orders* Referral to Allergy/Immunology Time Frame: 12/07/23, Location: None [facility] Work Phone: Hospital Discharge instructions* Attachments The following attachments cannot be sent through Care Everywhere. * Pelvic Pain (Citizen Of [place]) [facility] Attachments The following attachments cannot be sent through Care Everywhere. * Endometriosis (Citizen [place]) * Pelvic Pain (Citizen [place]) documented in [facility] encounter[facility] instructions* Attachments The following attachments cannot be sent through Care Everywhere. * Abdominal Pain (Citizen [place]) documented in this encounterBon [facility] SystemInstructionsNot on file documented in this encounterOhioHealth [facility] SystemInstructionsNot on file documented in this encounterKettering Health [facility] SystemInstructionsNot on file documented in this encounterProSalem Regional [facility] SystemInstructionsNot on file documented in this encounterKettering [facility] SystemInstructionsNot on file documented in this encounterKettering Health [facility] SystemInstructionsNot on file documented in this encounterKettering Health [facility] SystemProgress note No data available for this section [facility] Reason for referral (narrative)* Consultation (Routine) - New Request Specialty Diagnoses / Procedures Referred By Gina t Referred To Contact Multispecialty Diagnoses RLQ abdominal pain Pelvic joint pain, right Davi Rivas DO [address] [place] [address] Referral ID Status Reason Start Date Expiration Date V isits Requested Visits Authorized [id number] New Request 03/03/2024 03/28/2025 1 1 * Consultation (Routine) - New Request Specialty Diagnoses / Procedures Referred By Gina t Referred To Contact ELECTRICIAN SUPERVISOR SUBSTATION Diagnoses RLQ abdominal pain Pelvic joint pain, right Davi Rivas DO [address] [place] [address] Isabell Hodges DO [address] [place] [address] Referral ID Status Reason Start Date Expiration Date V isits Requested Visits Authorized [id number] New Request 03/03/2024 03/28/2025 1 1 [facility] Summary Purpose Family History No Family [...] Tachycardia Anxiety Endometriosis Insomnia Tachycardia Weight gain Chief Complaint Admit Date telephone/congestion/ear pain/sore throa t September 03, 2024 2:02pm Reason for Visit Admit Date Acute cough September 03, 2024 2:0 2pm Acute sinusitis September 03, 2024 2:0 2pm Reason for Referral Specialty Diagnoses / Procedures Referred By Gina perez Referred To Contact Procedures ECG Jennifer Moore MD [address] [place] [id number] Referral ID Status Reason Start Date Expiration Date V isits Requested Visits Authorized [id number] New Request 02/16/2024 03/12/2025 1 1 Reason appt pt is elsiearmando robi to see whomever can see her first pt needs consult to discuss possible injection for right sided bursitis Diagnosis 1 Greater trochanteric bursitis of right hip (M70.61) Referral Organization [facility] [place] Referring Provider First Name Jennifer Referring Provider Last Name Wilber Referring Provider Specialty Family Prac kasi Referred Organization [facility] Referred Provider Chad Luna II Referred Address [address] [place],[address] Referred Provider Specialty Orthopedic S urgery Referral Priority Routine General Notes Angelita Trevino 01/12/2023 03:51:47 PM > referral sent p2p. pt understands that she will be contacted to schedule this appt. Reason appt consult for e zia and treatment of continued cough since covid infection Diagnosis 1 Cough (R05) Referral Organization [facility] [place] Referring Provider First Name Jennifer Referring Provider [...] section and content) DATE CREATED AUTHOR 08/08/2020 [facility] DATE CREATED AUTHOR AUTHOR'S ORGANIZ ATION 05/03/2022 [facility] DATE CREATED AUTHOR AUTHOR'S ORGANIZ ATION 10/19/2022 [facility] DATE CREATED AUTHOR AUTHOR'S ORGANIZ ATION 06/23/2023 [facility] DATE CREATED AUTHOR AUTHOR'S ORGANIZ ATION 09/06/2023 [facility] DATE CREATED AUTHOR AUTHOR'S ORGANIZ ATION 10/21/[address] [facility] d[facility] DATE CREATED AUTHOR AUTHOR'S ORGANIZ ATION 11/27/2023 [facility] DATE CREATED AUTHOR AUTHOR'S ORGANIZ ATION 03/30/2024 [facility] DATE CREATED AUTHOR AUTHOR'S ORGANIZ ATION 06/11/2024 [facility] DATE CREATED AUTHOR AUTHOR'S ORGANIZ ATION 06/28/2024 [facility] DATE CREATED AUTHOR AUTHOR'S ORGANIZ ATION 07/01/2024 [facility] DATE CREATED AUTHOR AUTHOR'S ORGANIZ ATION 07/14/2024 [facility] DATE CREATED AUTHOR AUTHOR'S ORGANIZ ATION 07/17/2024 [facility] DATE CREATED AUTHOR AUTHOR'S ORGANIZ ATION 07/30/2024 [facility] DATE CREATED AUTHOR AUTHOR'S ORGANIZ ATION 08/03/2024 [facility] DATE CREATED AUTHOR AUTHOR'S ORGANIZ ATION 08/04/2024 [facility] DATE CREATED AUTHOR AUTHOR'S ORGANIZ ATION 08/12/2024 [facility] DATE CREATED AUTHOR AUTHOR'S ORGANIZ ATION 08/15/2024 [facility] DATE CREATED AUTHOR AUTHOR'S ORGANIZ ATION 12/08/2024 [place] DATE CREATED AUTHOR AUTHOR'S ORGANIZ ATION 01/17/2025 [facility] DATE CREATED AUTHOR AUTHOR'S ORGANIZ ATION 01/20/2025 [facility] Care Teams (unrecognized sec tion [...] Active Amaury Barlow DO Emergency Provider Active Institutional Commodity Analyst Relationship Specialty Start Date End Date Jennifer uDran, DO [address] [place] [address] PCP - General 11/27/07 Jennifer Duran, DO [address] [place] [address] Referring Family Practice 04/03/19 vAinash Velásquez MD [address] [place] [address] Referring ELECTRICIAN SUPERVISOR SUBSTATION 11/30/21 Institutional Commodity Analyst Relationship Specialty Start Date End Date Jennifer Duran, DO [address] [place] [address] PCP - General 11/27/07 Jennifer Duran, DO [address] [place] [address] Referring Family Medicine 04/03/19 Avinash Velásquez MD [address] [place] [address] Referring ELECTRICIAN SUPERVISOR SUBSTATION 11/30/21 Institutional Commodity Analyst Relationship Specialty Start Date End Date Jennifer Duran, DO [address] [place] [address] PCP - General 11/27/07 Jennifer Duran, DO [address] [place] [address] Referring Family Medicine 04/03/19 Avinash Velásquez MD [address] [place] [address] Referring ELECTRICIAN SUPERVISOR SUBSTATION 11/30/21 Institutional Commodity Analyst Relationship Specialty Start Date End Date Jennifer Duran, DO [address] [place] [address] PCP - General 11/27/07 Jennifer Duran, DO [address] [place] [address] Referring Family Medicine 04/03/19 Avinash Velásquez MD [address] [place] [address] Referring ELECTRICIAN SUPERVISOR SUBSTATION 11/30/21 Institutional Commodity Analyst Relationship Specialty Start Date End Date Jennifer Duran, DO [address] [place] [address] PCP - General 11/27/07 Jennifer Duran, DO [address] [place] [address] Referring Family Medicine 04/03/19 Avinash Velásquez MD [address] [place] [address] Referring ELECTRICIAN SUPERVISOR SUBSTATION 11/30/21 Institutional Commodity Analyst Relationship Specialty Start Date End Date Jennifer Duran, DO [address] [place] [address] PCP - General 11/27/07 Jennifer Duran, DO [address] [place] [address] Referring Family Medicine 04/03/19 Avinash Velásquez MD [address] [place] [address] Referring ELECTRICIAN SUPERVISOR SUBSTATION 11/30/21 Team Status: Active Member Role Status Dates Jennifer Duran DO Primary Care Provider Active Yevgeniy Cabrera Jr, MD Emergency Provider Active Kiko Saenz DO Admit Provider, Attending Provider Active Institutional Commodity Analyst Relationship Specialty Start Date End Date Jennifer Duran, DO [address] [place] [address] PCP - General 11/27/07 Jennifer Duran, DO [address] [place] [address] Referring Family Medicine 04/03/19 Avinash Velásquez MD [address] [place] [address] Referring ELECTRICIAN SUPERVISOR SUBSTATION 11/30/21 Team Status: Inactive Member Role Status Dates Jennifer Girvin , DO Primary Care Provider Active Elier Jackson , DO Emergency Provider Active Team Status: Active Member Role Status Dates Sarah Childress , DO Emergency Provider Active Jennifer Duran , DO Primary Care Provider Active Megan Muniz MD Admit Provider, Attending Provide r Active Team Status: Inactive Member Role Status Dates Sarah Childress , DO Emergency Provider Active Jennifer [...] Duran , DO Primary Care Provider Active Sarah Childress , DO Emergency Provider Active Team Status: Inactive Member Role Status Dates Sarah Chlidress , DO Emergency Provider Active Jennifer Duran , DO Primary Care Provider Active Megan Muniz MD Admit Provider Active Christi Aquino MD Attending Provider Active Kiko Saenz , DO Other Provider Active Team Status: Inactive Member Role Status Austin Duran , DO Primary Care Provider Active Sarah Childress , DO Emergency Provider Active Team [...] October 18, 2023 End: October 18, 2023 Institutional Commodity Analyst Relationship Specialty Start Date End Date Jennifer Duran DO [address] [place] [address] PCP - General Family Medicine 09/14/23 Team [...] Active Member Role Status Dates Jennifer Duran Primary [...] March 23, 2024 End: March 23, 2024 Institutional Commodity Analyst Relationship Specialty Start Date End Date No Pcp, [place] [address] PCP - General Family Medicine 06/05/24 Institutional Commodity Analyst Relationship Specialty Start Date End Date No Pcp, [place] [address] PCP - General [facility] Medicine 06/05/24 Team Status: Inactive Member Role Status Dates Jennifer Duran DO Primary Care Provide r, Attending Provider Active Start: September 03, 2024 End: September 03, 2024 Institutional Commodity Analyst Relationship Specialty Start Date End Date No Pcp, [place] [address] PCP - General Family Medicine 06/05/24 Institutional Commodity Analyst Relationship Specialty Start Date End Date No Pcp, [place] [address] PCP - General Family Medicine 06/05/24 Goals [...] this encounter No data available for this sectionGoals may [...] IRON SUCROSE INJECTION PER 1 MG Madyson Ni APRN.[facility] [address] [place] [address] Johny Treat [place] [address] [place] [address] Referral ID Status Reason Start Date Expiration Date V isits Requested Visits Authorized [id number] Authorized 03/10/2022 06/12/2022 99 99 Reason Comments [...] of her ovarian Remnet syndrome . Pain /. Reason Comments Abdominal Pain Pt here for RLQ abd pain. Pt states this is a chronic pain and taking tramadol and toradol, last dose 5p. Report ovarian remnant syndrome. See Telecommunication Tower Technician in [place] Reason Comments Abdominal Pain Pt presents to the E R with complaints of abd pain that began 2 days ago Reason Onset Date Comments Abdominal Pain 09/04/2024 Nausea 09/04/2024 Reason Onset Date Comments Appointment 09/12/2024 Reason Onset Date Comments right sided abdominal pain 10/01/2024 Source Comments (unrecognize d section and content) In the event this informatio n is protected by the Federal Confidentiality of Alcohol and Drug Abuse Patient Records regulations: The Federal rules restrict any use of the information to criminally investigate or prosecute any alcohol or drug abuse patient.[facility] the event this information is protected by the Federal Confidentiality of Alcohol and Drug Abuse Patient Records regulations: The Federal rules restrict any use of the information to criminally investigate or prosecute any alcohol or drug abuse patient.[facility] the event this information is protected by the Federal Confidentiality of Alcohol and Drug Abuse Patient Records regulations: The Federal rules restrict any use of the information to criminally investigate or prosecute any alcohol or drug abuse patient.[facility] the event this information is protected by the Federal Confidentiality of Alcohol and Drug Abuse Patient Records regulations: The Federal rules restrict any use of the information to criminally investigate or prosecute any alcohol or drug abuse patient.[facility] the event this information is protected by the Federal Confidentiality of Alcohol and Drug Abuse Patient Records regulations: The Federal rules restrict any use of the information to criminally investigate or prosecute any alcohol or drug abuse patient.[facility] the event this information is protected by the Federal Confidentiality of Alcohol and Drug Abuse Patient Records regulations: The Federal rules restrict any use of the information to criminally investigate or prosecute any alcohol or drug abuse patient.[facility] the event this information is protected by the Federal Confidentiality of Alcohol and Drug Abuse Patient Records regulations: The Federal rules restrict any use of the information to criminally investigate or prosecute any alcohol or drug abuse patient.[facility] Ordered Prescriptions (unrec ognized section and [...] Please document Furnish to patient on the 146 (Furnished to Reginaldo pace - Provider: Silva Kelly RN) Scheduled Medication [...] 1930 1945 (Given - Provid er: Sandra Conrad RN) FOR RECORDS PERTAINING TO PATIENTS WHO [...] BE BASED ON THE PRIMARY CLINICAL RECORDS. [employer] [facility]. provides no warranty or guarantee of the accuracy or completeness of information in this document.
--- NOTE | 2025-02-18 02:06 | ED_ITS ---
HPI - Abdominal Pain General Chief Complaint: Abdominal Pain Stated Complaint: Abdominal Pain Time Seen by Provider: 02/18/25 01:53 Source: patient Mode of arrival: walk-in Limitations: no limitations History of Present Illness HPI narrative: cc - abdominal pain Pt presents with right lower abdominal pain that began one day ago. 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 She denied any fever or chills. No vaginal bleeding, pain with urination, blood in urine or stool. Prior CT scanning revealed that she had a hysterectomy. Related Data Home Medications ?Medication ?Instructions ?Recorded ?Confirmed alprazolam 0.25 mg tablet 0.25 mg PO Q8H PRN anxiety 0 09/20/23 08/11/24 citalopram 20 mg tablet (Celexa) 20 mg PO DAILY 08/11/24 atenolol 25 mg tablet 25 mg PO Q24H 02/11/2408/11 acetaminophen 500 mg tablet 500 mg PO Q6H PRN pain 08/11/24 gabapentin 300 mg capsule 300 mg PO TID 07/09/2408/11 ibuprofen 800 mg tablet 800 mg PO Q8H PRN pain 07/0908/11/24 Previous Rx's ?Medication ?Instructions ?Recorded ketorolac 10 mg tablet 10 mg PO TID PRN pain #10 ta bs 10/22/23 ondansetron 4 mg disintegrating 4 mg PO DAILY PRN naus ea and 06/27/24 tablet vomiting #15 tabs Allergies Allergy/AdvReac Type Severity Reaction Status Date / Time morphine Allergy Severe itching Verified 08/11/24 03:19 prochlorperazine (From AdvReac Mild Anxiety Verified 08/11/24 03:19 Compazine) [facility] Medical History Ovarian cyst ?N83.209 - Unspecified ovarian cyst, unspecified side (ICD-10) Endometriosis ?N80.9 - Endometriosis, unspecified (ICD-10) LLQ abdominal pain ?R10.32 - Left lower quadrant pain (ICD-10) Complex cyst of left ovary ?N83.292 - Other ovarian cyst, left side (ICD-10) Toothache ?K08.89 - Other specified disorders of teeth and supporting structures (ICD- 10) Surgical History History of removal of cyst ?Z98.890 - Other specified postprocedural states (ICD-10) History of cholecystectomy ?Z90.49 - Acquired absence of other specified parts of digestive tract (ICD- 10) Family History Family/Other No problems noted. Father Family history of CHF (congestive heart failure) Family history of COPD (chronic obstructive pulmonary disease) Family history of diabetes mellitus Family history of hypertension Family history of myocardial infarction Mother Family history of hypertension Other Family history of cancer Social History Within the past year, how often did you have a drink containing alcohol: monthly or less Within the past year, how many standard drinks containing alcohol did you have on a typical day: 1 or 2 Within the past year, how often did you have six or more drinks on one occasion: never Total score: 0 Score interpretation: A score less than 3 is consistent with normal alcohol consumption. Smoking status: Never smoker Non-prescribed substance use: denies use Highest level of school completed/degree received: Associate degree: academic program Are you now , , , , never or living with a partner: In a typical week, how many times do you talk on the telephone with family, friends, or neighbors: 3 or more times per week How often do you get together with friends or relatives: 3 or more times per week Little interest or pleasure in doing things: not at all Feeling down, depressed, or hopeless: not at all Feel stressed/tense/nervous/anxious/difficulty sleeping: not at all Do you think of yourself as: straight/heterosexual Gender Identity: female Exam Narrative Exam Narrative: Nurses notes and vital signs reviewed and patient is not hypoxic. afebrile General: Dramatic. Skin: Warm, dry, no pallor noted. Eye: Pupils are equal, round and EOMI. No scleral icterus. Ears, Nose, Mouth, and Throat: Oral mucosa is moist Cardiovascular: Tachycardia. Respiratory: No accessory muscle use or respiratory distress. Lungs are clear to auscultation, no wheezing, rales or rhonchi Back: No CVA tenderness Musculoskeletal: normal ROM GI: Abdomen is soft, non-distended. Normal bowel sounds. No masses appreci ated. She reacts when I palpate the right lower quadrant. No umbilical tenderness to palpation. Negative rovsing's. No rebound, guarding, or rigidity noted. Neurological: A&O x4. No cranial nerve dysfunction observed. No truncal ataxia. Moves all extremities. Sensation intact. Psychiatric: Cooperative and interactive. Normal mood and affect. Constitutional Vital Signs, click to edit/add: Last Vital Signs Temp 97.8 F 02/18/25 01:36 Pulse 109 H 02/18/25 01:36 Resp 18 02/18/25 01:36 BP 143/92 H 02/18/25 01:36 Pulse Ox 98 02/18/25 01:36 O2 Del Method Room Air 02/18/25 01:36 Course Vital Signs Vital signs: Vital Signs Temperature 97.8 F 02/18/25 01:36 Pulse Rate 109 H 02/18/25 01:36 Respiratory Rate 18 02/18/25 01:36 Blood Pressure 143/92 H 02/18/25 01:36 Pulse Oximetry 98 02/18/25 01:36 Oxygen Delivery Method Room Air 02/18/25 01:36 Temperature 97.8 F 02/18/25 01:36 Pulse Rate 109 H 02/18/25 01:36 Respiratory Rate 18 02/18/25 01:36 Blood Pressure 143/92 H 02/18/25 01:36 Pulse Oximetry 98 02/18/25 01:36 Oxygen Delivery Method Room Air 02/18/25 01:36 MDM - Abdominal Pain MDM Narrative Medical decision making narrative: Chart review indicates that this patient has been coming to the emergency department on a frequent basis requesting Dilaudid and claiming allergy to other medications or that she has already taken Toradol, NSAIDs, Tylenol and other pain meds including Ultram. Last CT scan of the abdomen pelvis was in March 2024, which revealed she previously had a hysterectomy. She has been diagnosed with endometriosis and apparently suffers from chronic, recurrent abdominal pain with unremarkable workups. I examined the patient and found her to be without an acute surgical abdomen and without any additional findings that would suggest need for emergent imaging. This is an acute exacerbation of a chronic complaint for which we have not been able to, in the past, find the reason for the patient's pain. She was informed that she would not be receiving narcotics on this visit. She was given Levsin and discharged home with recommendation to call her assistant in nursing in a few hours -if they feel comfortable prescribing something else for her pain, they can do so since they know her well. Discharge Plan Discharge Chief Complaint: Abdominal Pain Clinical Impression: Abdominal pain, chronic, right lower quadrant Patient Disposition: Home, Self-Care Time of Disposition Decision: 02:13 Prescriptions / Home Meds: No Action ketorolac 10 mg tablet 10 mg PO TID PRN (Reason: pain) Qty: 10 0RF ondansetron 4 mg tablet,disintegrating 4 mg PO DAILY PRN (Reason: nausea and vomiting) Qty: 15 0RF ibuprofen 800 mg tablet 800 mg PO Q8H PRN (Reason: pain) acetaminophen 500 mg tablet 500 mg PO Q6H PRN (Reason: pain) gabapentin 300 mg capsule 300 mg PO TID alprazolam 0.25 mg tablet 0.25 mg PO Q8H PRN (Reason: anxiety) citalopram [Celexa] 20 mg tablet 20 mg PO DAILY atenolol 25 mg tablet 25 mg PO Q24H Print Language: Georgian Instructions: Chronic Abdominal Pain (DC) Referrals: Physician,Non-Staff, MD [Primary Care Provider] - 1 week
[2025-02-18] MEDS: HYOSCYAMINE SULFATE 0.125 MG TAB.SUBL SL (02:18)
--- NOTE | 2025-02-18 02:22 | PC.NURSE ---
i gave this patient verbal and written discharge orders and this patient voices yes to understanding these discharge orders. at time of discharge this patient voices no concerns, needs and shows no signs of distress
== END 2025-02-18 02:21 | disposition home or self-care (01) ==
PROVIDERS: Emergency Provider Emergency Medicine
DX: R10.31 Right lower quadrant pain (principal); G89.29 Other chronic pain; N80.9 Endometriosis, unspecified; Z90.710 Acquired absence of both cervix and uterus; Z90.49 Acquired absence of other specified parts of digestive tract; Z90.79 Acquired absence of other genital organ(s); Z90.722 Acquired absence of ovaries, bilateral
CPT/HCPCS: 36415; 74177; 80048; 81001; 85025; 96374; 96375; 99283; 99284; J1171; J2405; Q9967

== ENCOUNTER 2025-02-18 08:49 | Emergency (ER) | payer BC, SELFPAY ==
--- OUTSIDE RECORDS SUMMARY | 2024-01-13 07:00 | XMS_ITS ---
Author Organization [facility] Address [address] [place] [address] Care Team Providers Care Computational Sciences Professor Name Role Phone Dr. Dennis Camacho Primary Care Provider [phone] REASON FOR VISIT new patient dental exam Encounters Encounter Location Date Provider Diagnosis [facility] [address] [place] [address] 01/13/2024 Dennis Camacho Plan Of Treatment No Information Progress Notes * ANTONIA DE LOS SANTOS LDOB:[birth year] (40 yo F)Acc No.[id number]:01/13/2024 Patient: TRACEY WHITTAKERCIAlisia Lacy Provider: Vasu Camacho DDS :1985 A ge:39 Y S ex:Female Date:01/13/2024 Address:[address] [place], [id number] Subjective: * Chief Complaints: * 1 . New patient dental exam. * Medical History: Objective: * Vitals: Assessment: Plan: * Treatment: * Images: * Electronic signature of Dr. Dennis Camacho , DMD on 02/18/2025 at 08:54 AM EDT Sign off status: Pending * Provider: Vasu Camacho DDS Date: 01/13/2024 Generated for Printi ng/Faxing/eTransmitting on: 02/18/2025 08:54 AM EDT
--- OUTSIDE RECORDS SUMMARY | 2024-01-27 10:00 | XMS_ITS ---
Author Organization [facility] Address [address] [place] [place] [address] Care Team Providers Care Mechanical Tech Name Role Phone Dr. Dennis Camacho Primary Care Provider [phone] Ricky Tracey Quintanilla [phone] REASON FOR VISIT FILLING Encounters Encounter Location Date Provider Diagnosis [facility] [address] [place] [address] 01/27/2024 Tracey Quintanilla Plan Of Treatment No Information Progress Notes * ANTONIA DE LOS SANTOS LDOB:[birth year] (40 yo F)Acc No.[id number]:01/27/2024 Patient: ANTONIA WHITTAKER Provider: Vasu Quintanilla :1985 A ge:39 Y S ex:Female Date:01/27/2024 Address:[address] [place], [id number] Pcp:Dr. Dennis Camacho Subjective: * Chief Complaints: * 1 . FILLING. * Medical History: Objective: * Vitals: Assessment: Plan: * Treatment: * Images: * Electronic signature of Yari Quintanilla DMD on 02/18/2025 at 08:55 AM EDT Sign off status: Pending * Provider: Vasu Quintanilla Date: 0 01/27/2024 Generated for Printi ng/Faxing/eTransmitting on: 0 02/18/2025 08:55 AM EDT
--- OUTSIDE RECORDS SUMMARY | 2024-03-02 07:00 | XMS_ITS ---
Author Organization [facility] Address [address] [place] [address] Care Team Providers Care Snailer Name Role Phone Dr. Dennis Camacho Primary Care Provider [phone] Akhil Philippe [phone] REASON FOR VISIT FILLING Encounters Encounter Location Date Provider Diagnosis [facility] [address] [place] [address] 03/02/2024 Akhil Hall Plan Of Treatment No Information Progress Notes * TONNY DE LOS SANTOSE LDOB:[birth year] (40 yo F)Acc No.[id number]:03/02/2024 Patient: ANTONIA WHITTAKER Provider: Dottie Hernandes DDS :1985 A ge:39 Y S ex:Female Date:03/02/2024 Address:[address] [place], [id number] Pcp:Dr. Dennis Camacho Subjective: * Chief Complaints: * 1 . FILLING. * Medical History: Objective: * Vitals: Assessment: Plan: * Treatment: * Images: * Electronic signature of Jeremy Hall on 02/18/2025 at 08:54 AM EDT Sign off status: Pending * Provider: Dottie Hernandes DDS Date: 03/02/2024 Generated for Printi ng/Faxing/eTransmitting on: 02/18/2025 08:54 AM EDT
--- OUTSIDE RECORDS SUMMARY | 2024-03-16 07:00 | XMS_ITS ---
Author Organization [facility] Address [address] [place] [address] Care Team Providers Care Subway Train Operator Name Role Phone Dr. Dennis Camacho Primary Care Provider [phone] Enedina Mendieta [phone] REASON FOR VISIT last apro unk Encounters Encounter Location Date Provider Diagnosis [facility] [address] [place] [address] 03/16/2024 Enedina Orellana Plan Of Treatment No Information Progress Notes * ANTONIA DE LOS SANTOS LDOB:[birth year] (40 yo F)Acc No.[id number]:03/16/2024 Patient: ANTONIA WHITTAKER Provider: Leila Kapoor :1985 A ge:39 Y S ex:Female Date:03/16/2024 Address:[address] [place], [id number] Pcp:Dr. Dennis Camacho Subjective: * Chief Complaints: * 1 . Last apro unk. * Medical History: Objective: * Vitals: Assessment: Plan: * Treatment: * Images: * Electronic signature of Charmaine Orellana on 02/18/2025 at 08:55 AM EDT Sign off status: Pending * Provider: Leila Kapoor Date: 1 Generated for Printi ng/Faxing/eTransmitting on: 0 02/18/2025 08:55 AM EDT
--- OUTSIDE RECORDS SUMMARY | 2024-03-30 06:45 | XMS_ITS ---
Author Organization [facility] Address [address] [place] [address] Care Team Providers Care Qa Tester Name Role Phone Dr. Dennis Camacho Primary Care Provider [phone] REASON FOR VISIT RCT Encounters Encounter Location Date Provider Diagnosis [facility] [address] [place] [address] 03/30/2024 Dennis Camacho Plan Of Treatment No Information Progress Notes * ANTONIA DE LOS SANTOS LDOB:[birth year] (40 yo F)Acc No.[id number]:03/30/2024 Patient: ANTONIA WHITTAKER Provider: Vasu Camacho DDS :1985 A ge:39 Y S ex:Female Date:03/30/2024 Address:[address] [place], [id number] Subjective: * Chief Complaints: * 1 . RCT. * Medical History: Objective: * Vitals: Assessment: Plan: * Treatment: * Images: * Electronic signature of Dr. Dennis Camacho , DMD on 02/18/2025 at 08:55 AM EDT Sign off status: Pending * Provider: Vasu Camacho DDS Date: Generated for Printi ng/Faxing/eTransmitting on: 0 02/18/2025 08:55 AM EDT
--- OUTSIDE RECORDS SUMMARY | 2025-02-17 19:42 | XMS_ITS | Encounter Summary ---
Author Organization [facility] Address [id number] [address] [place] [address] Care Team Providers Care Chairman And Chief Executive Officer Name Role Phone No Pcp, No Pcp Primary Care Provider Unavailabl e Reason for Visit * Reason Comments Abdominal Pain Pt reports RLQ pain that started last night associated with n/v. Encounter Details Date Type Department Care Team (Late st Contact Info) Description 02/17/2025 7:42 PM EDT - 02/17/2025 9:55 PM EDT Emergency [facility] - Emergency [address] [place] [address] Dev Abel, DO [address] [place] [address] Chronic abdominal pain (Primary Dx) Discharge Disposition: Home Social History Tobacco Use Types Packs/Day Years Used Date Smoking Tobacco: Never Smokeless Tobacco: Never Alcohol Use Standard Drinks/Week Comments Not Currently 0 (1 standard drink = 0.6 oz pur e alcohol) monthly Childcare Answer Date Recorded Childcare Unknown 11/20/2018 Employment Answer Date Recorded Employment Unknown 11/20/2018 Hunger Screening Answer Date Recorded Within the past 12 months we worried whether our food would run out before we got money to buy more. Never True 02/17/2025 Within the past 12 months th e food we bought just didn't last and we didn't have money to get more. Never True 02/17/2025 Comments No Sex and Gender Information Value Date Recorded Sex Assigned at Not on file Legal Sex Female 2:15 PM EDT Gender Identity Not on file Sexual Orientation Not on file documented as of this encounter Last Filed Vital Signs Vital Sign Reading Time Taken Comments Blood Pressure 182/95 02/17/2025 7:45 PM EDT Pulse 94 02/17/2025 6:25 PM EDT Temperature 37.5 C (99.5 F) 02/17/2025 6:25 PM EDT Respiratory Rate 20 02/17/2025 6:25 PM EDT Oxygen Saturation 100% 02/17/2025 7:45 PM EDT Inhaled Oxygen Concentration - - Weight 83.9 kg (185 lb) 02/17/2025 6:25 PM EDT Height 165.1 cm (5' 5 ) 02/17/2025 6:25 PM EDT Body Mass Index 30.79 02/17/2025 6:25 PM EDT documented in this encounter Medications at Time of Discharge acetaminophen (TYLENOL EXTRA STRENGTH) 500 mg tablet Take 2 tablets (1,000 mg total) by mouth every 8 (eight) hours. 60 tablet 04/06/2024 ALPRAZolam (XANAX) 0.25 mg tablet Take 1 tablet (0.25 mg total) by mouth every 8 (eight) hours as needed for anxiety. atenoloL (TENORMIN) 25 mg tablet Take 1 tablet (25 mg total) by mouth in the morning. 01/19/2024 citalopram (CeleXA) 20 mg tablet Take 1 tablet (20 mg total) by mouth nightly. estradiol-norethind tesfaye acet (COMBIPATCH) 0.05-0.14 mg/[address] 1 patch on the skin 2 (two) times a week. 24 patch 4 04/09/2024 ibuprofen (MOTRIN) 800 mg tablet Take 1 tablet (800 mg total) by mouth every 8 (eight) hours. 60 tablet 04/06/2024 ketorolac (TORADOL) 10 mg tablet Take 1 tablet (10 mg total) by mouth every 6 (six) hours as needed for pain. naloxone (NARCAN) 4 mg/actuation spray,non-aerosol nasal spray Administer 1 spray (4 mg total) into alternating nostrils as needed for opioid reversal. 2 each 04/06/2024 ondansetron ODT (ZOFRAN ODT) 4 mg disintegrating tablet Dissolve 1 tablet (4 mg total) on tongue every 8 (eight) hours as needed for nausea for up to 10 doses. 10 tablet 09/28/2024 sennosides-docusate sodium (SENNA WITH DOCUSATE SODIUM) 8.6-50 mg Take 1 tablet by mouth in the morning and 1 tablet before bedtime. 60 tablet 04/06/2024 documented as of this encounter Plan of Treatment Upcoming Encounters Date Type Department Care Team (Late st Contact Info) Description 03/20/2025 3:30 PM EDT Office Visit [facility] Oncology, A Department of [address] [place] [address] Adiel Aparicio MD [address] [place] [address], [address] [place] [address] documented as of this encounter Procedures Procedure Name Priority Date/Time Associated Diagnosis Comments CBC WITH AUTO DIFFERENTIAL STAT 02/17/2025 6:33 PM EDT LIPASE STAT 02/17/2025 6:33 PM EDT COMPREHENSIVE METABOLIC PANEL STAT 02/17/2025 6:33 PM EDT EXTRA TUBES TRIANA TOP ON ICE Routine 02/17/2025 6:30 PM EDT EXTRA TUBES Routine 02/17/2025 6:30 PM EDT documented in this encounter Results * Lipase (02/17/2025 6:33 PM EDT) LIPASE 30 17 - 40 U/L 02/17/2025 6:53 PM EDT [facility] Blood Venous blood / Unknown Venipuncture / Unknown 02/17/2025 6:33 PM EDT 02/17/2025 6:36 PM EDT us Dev Abel DO LAB BLOOD ORDERABLES Fin al Result [address] [place] [address], [place] * (ABNORMAL) Comprehensive metabolic panel (02/17/2025 6:33 PM EDT) SODIUM 138 134 - 146 mmol/L 02/17/2025 6:55 PM EDT [facility] POTASSIUM 3.6 3.5 - 5.0 mmol/L 02/17/2025 6:55 PM EDT [facility] CHLORIDE 104 98 - 109 mmol/L 02/17/2025 6:55 PM EDT [facility] CARBON DIOXIDE 21(L) 22 - 32 mmol/L 02/17/2025 6:55 PM EDT [facility] ANION GAP 13 5 - 15 mmol/L 02/17/2025 6:55 PM EDT [facility] BLOOD UREA NITROGEN 8 5 - 23 mg/dL 02/17/2025 6:55 PM EDT [facility] CREATININE 0.87 0.40 - 1.00 mg/dL 02/17/2025 6:55 PM EDT [facility] Comment:METHOD TRACEABLE TO IDMS STANDARD GLUCOSE 118(H) 65 - 99 mg/dL 02/17/2025 6:55 PM EDT [facility] CALCIUM 9.0 8.5 - 10.5 mg/dL 02/17/2025 6:55 PM EDT [facility] TOTAL PROTEIN 8.0 6.0 - 8.0 g/dL 02/17/2025 6:55 PM EDT [facility] ALBUMIN 4.1 3.2 - 5.3 g/dL 02/17/2025 6:55 PM EDT [facility] ALKALINE PHOSPHATASE 80 39 - 130 U/L 02/17/2025 6:55 PM EDT [facility] AST 24 <=41 U/L 02/17/2025 6:55 PM EDT [facility] ALT 21 <=31 U/L 02/17/2025 6:55 PM EDT [facility] BILIRUBIN,TOTAL 0.7 0.3 - 1.2 mg/dL 02/17/2025 6:55 PM EDT [facility] EGFR Non-Race Dependent 87 >=60 ml/min/1.7 3sq.m 02/17/2025 6:55 PM EDT [facility] Comment: eGFR not reported due to non-numeric value for Creatinine. Reported eGFR is based on the CKD-EPI 2020 equation that does not use a race coefficient. Blood Venous blood / Unknown Venipuncture / Unknown 02/17/2025 6:33 PM EDT 02/17/2025 6:36 PM EDT us Dev Abel DO LAB BLOOD ORDERABLES Fin al Result [facility] [address] [place] [address], * (ABNORMAL) CBC auto differential (02/17/2025 6:33 PM EDT) WBC 11.8(H) 4 - 11 x10E9/L 02/17/2025 6:45 PM EDT [facility] RBC Count 4.78 3.8 - 5.2 X10E12/L 02/17/2025 6:45 PM EDT [facility] Hemoglobin 11.6(L) 11.7 - 15.5 g/dL 02/17/2025 6:45 PM EDT [facility] Hematocrit 35.6 35 - 47 % 02/17/2025 6:45 PM EDT [facility] MCV 74(L) 80 - 100 fL 02/17/2025 6:45 PM EDT [facility] MCH 24.2(L) 27 - 34 pg 02/17/2025 6:45 PM EDT [facility] MCHC 32.6 32 - 36 g/dL 02/17/2025 6:45 PM EDT [facility] RDW 19.2(H) 11.5 - 15 % 02/17/2025 6:45 PM EDT [facility] Platelet Count 513(H) 150 - 450 X10E9/L 02/17/2025 6:45 PM EDT [facility] MPV 7.1 7 - 12 fL 02/17/2025 6:45 PM EDT [facility] Neutrophils % 69.3 % 02/17/2025 6:45 PM EDT [facility] Lymphocytes % 24.5 % 02/17/2025 6:45 PM EDT [facility] Monocytes % 5.3 % 02/17/2025 6:45 PM EDT [facility] Eosinophils % 0.3 % 02/17/2025 6:45 PM EDT [facility] Basophils % 0.6 % 02/17/2025 6:45 PM EDT [facility] Neutrophils Absolute (A) 8.2(H) 1.5 - 6.6 10*3/uL 02/17/2025 6:45 PM EDT [facility] Lymphocytes Absolute 2.9 1.0 - 3.5 10*3/uL 02/17/2025 6:45 PM EDT [facility] Monocytes Absolute 0.6 0.0 - 0.9 10*3/uL 02/17/2025 6:45 PM EDT [facility] Eosinophils Absolute 0.0 0.0 - 0.4 10*3/uL 02/17/2025 6:45 PM EDT [facility] Basophils Absolute 0.1 0.0 - 0.2 10*3/uL 02/17/2025 6:45 PM EDT [facility] Differential Type AUTOMATED DIFFERENTIAL 02/17/2025 6:45 PM EDT [facility] Blood Venous blood / Unknown Venipuncture / Unknown 02/17/2025 6:33 PM EDT 02/17/2025 6:36 PM EDT us Dev Abel DO LAB BLOOD ORDERABLES Fin al Result [facility] [address] [place] [address], [place] * Triana Top On Ice (02/17/2025 6:30 PM EDT) Extra Tube Auto Resulted 02/17/2025 8:01 PM EDT [facility] Blood Venous blood / Unknown 02/17/2025 6:30 PM EDT 02/17/2025 6:36 PM EDT us Gabriela Ordaz [employer] MA[employer] LAB BLOOD ORDERABLES Final Result [facility] [address] [place] [address], [place] documented in this encounter Visit Diagnoses Diagnosis Chronic abdominal pain- Primary Abdominal pain, unspecified site documented in this encounter Administered Medications Inactive Administered Medications - up to 3 most recent administrations Medication Order MAR Action Action Date Dose Rate Site acetaminophen (OFIRMEV) IVPB Premix 1,000 mg 1,000 mg, intravenous, at 400 mL/hr, Administer over 15 Minutes, Every 6 hours, First dose on 02/17/25 at 1949, For 24 hours New Bag 02/17/2025 8:14 PM EDT 1,000 mg 400 mL/hr ketorolac (TORADOL) injection 30 mg 30 mg, intravenous, Once, On 02/17/25 at 2102, For 1 dose, Look-alike/sound-alike medication - verify indication for use. Duration of therapy is not to exceed 5 days. Maximum recommended dose + 120mg/24 hours. Given 02/17/2025 9:15 PM EDT 30 mg ondansetron (PF) (ZOFRAN) injection 4 mg 4 mg, intravenous, Once, On 02/17/25 at 1950, For 1 dose, Intravenous administration preferred to be given over 2-5 minutes. Given 02/17/2025 8:10 PM EDT 4 mg documented in this encounter Active and Recently Administered Medications Times are shown in EDT. Scheduled Medication Order 02/15/2025 02/16/2025 02/17/2025 acetaminophen (OFIRMEV) IVPB Premix 1,000 mg 1,000 mg, intravenous, at 400 mL/hr, Administer over 15 Minutes, Every 6 hours, First dose on 02/17/25 at 1949, For 24 hours 2013 (New Bag - Prov ider: Dede Reyes RN)2027 (Stop Bag - Provider: Simin Grimm RN) ketorolac (TORADOL) injection 30 mg (COMPLETED) 30 mg, intravenous, Once, On 02/17/25 at 2102, For 1 dose, Look-alike/sound-alike medication - verify indication for use. Duration of therapy is not to exceed 5 days. Maximum recommended dose + 120mg/24 hours. 2114 (Given - Provid er: Dede Reyes RN) ondansetron (PF) (ZOFRAN) injection 4 mg (COMPLETED) 4 mg, intravenous, Once, On 02/17/25 at 1950, For 1 dose, Intravenous administration preferred to be given over 2-5 minutes. 2009 (Given - Provid er: Dede Reyes RN) documented in this encounter Care Teams Chairman And Chief Executive Officer Relationship Specialty Start Date End Date No Pcp, [place] [id number] PCP - General Family Medicine 12/06/24 documented as of this encounter
[2025-02-18 08:53] VITALS: BP 142/106; PULSE 111; TEMP 37.3; O2SAT 99; BMI 30.8
--- OUTSIDE RECORDS SUMMARY | 2025-02-18 08:54 | XMS_ITS | Clinical Summary ---
Author Organization [facility] Address [address] [place] [address] Phone Care Team Providers Care Director Design Name Role Phone Aristides Merino DO Primary Care Provider [phone] Social History Tobacco Use Types Packs/Day Years Used Date Smoking Tobacco: Never Assessed Comments Unknown Sex and Gender Information Value Date Recorded Sex Assigned at Not on file Legal Sex Female 5:01 PM EST Gender Identity Not on file Sexual Orientation Not on file Plan of Treatment Not on file Care Teams Director Design Relationship Specialty Start Date End Date Aristides Merino DO PCP - General 08/06/20
--- OUTSIDE RECORDS SUMMARY | 2025-02-18 08:54 | XMS_ITS | Encounter Summary ---
Author Organization [facility] [employer] [facility] Address [id number] [address] [place] [address] Care Team Providers Care Multi Purpose Machine Operator Name Role Phone No Pcp, No Pcp Primary Care Provider Unavailabl e Encounter Details Date Type Department Care Team (Latest Contact Info) Description 02/17/2025 Travel Social History Tobacco Use Types Packs/Day Years [...] on file documented as of this encounter Plan of Treatment Upcoming Encounters Date Type Department Care Team (Late st Contact Info) Description 03/20/2025 3:30 PM EDT Office Visit [facility] Gynecology Oncology, A Department of [address] [place] [address] Adiel Aparicio MD [address] [place] [address], [address] [place] [address] documented as of this encounter Visit Diagnoses Not on filedocumented in this encounter Care Teams Multi Purpose Machine Operator Relationship Specialty Start Date End Date No Pcp, [place] [address] PCP - General Family Medicine 6/26/25 documented as of this encounter
--- OUTSIDE RECORDS SUMMARY | 2025-02-18 08:54 | XMS_ITS | Encounter Summary ---
Author Organization [facility] Address [address] [place] [address] Care Team Providers Care Grain Ii Farmworker Name Role Phone Aristides Merino DO Primary Care Provider [phone] Aristides Merino DO Unavailable Avinash Velásquez MD Unavailable [phone] Source Comments In the event this information is protected by the Federal Confidentiality of Alcohol and Drug AbusePatient Records regulations: The Federal rules restrict any use of the information to criminally investigate or prosecute any alcohol or drug abuse patient.[facility] Encounter Details Date Type Department Care Team (Late st Contact Info) Description 06/28/2018 Patient Msg Internal Medicine [facility] [place], [place] [id number] Shawna Dockery RN Blood Management - Additional labs Social History Tobacco Use Types Packs/Day Years Used Date Smoking Tobacco: Never Smokeless Tobacco: Never Alcohol Use Standard Drinks/Week Comments Yes 0 (1 standard drink = 0.6 oz pur e alcohol) socially Comments No Sex and Gender Information Value Date Recorded Sex Assigned at Not on file Legal Sex Female 8:14 AM EST Gender Identity Not on file Sexual Orientation Not on file documented as of this encounter Plan of Treatment Not on file documented as of this encounter Visit Diagnoses Not on filedocumented in this encounter Care Teams Grain Ii Farmworker Relationship Specialty Start Date End Date Aristides Merino DO [address] [place] [address] PCP - General 11/27/07 Aristides Merino DO [address] [place] [address] Referring Family Medicine 04/03/19 Avinash Velásquez MD [address] [facility] [place] [place] [address] Referring Storage Battery Inspector 11/30/21 documented as of this encounter
--- OUTSIDE RECORDS SUMMARY | 2025-02-18 08:54 | XMS_ITS | Encounter Summary ---
Author Organization [facility] Address [address] [place] [address] Care Team Providers Care Departure Clerk Name Role Phone Aristides Merino DO Primary Care Provider [phone] Arisitdes Merino DO Unavailable [phone] Avinash Velásquez MD Unavailable [phone] Source Comments In the event this information is protected by the Federal Confidentiality of Alcohol and Drug AbusePatient Records regulations: The Federal rules restrict any use of the information to criminally investigate or prosecute any alcohol or drug abuse patient.[facility] Encounter Details Date Type Department Care Team (Late st Contact Info) Description 06/01/2018 Patient Msg Medical Records [address] [place] [address] Provider, [facility] Social History Tobacco Use Types Packs/Day Years [...] on filedocumented in this encounter Care Teams Departure Clerk Relationship Specialty Start Date End Date Aristides Merino DO [address] [place] [address] PCP - General 11/27/07 Aristides Merino DO [address] [place] [address] Referring Family Medicine 04/03/19 Avinash Velásquez MD [address] [facility] [address] [place] [address] Referring Telecommunications Switch Technician 11/30/21 documented as of this encounter
--- OUTSIDE RECORDS SUMMARY | 2025-02-18 08:54 | XMS_ITS | Clinical Summary ---
Author Organization [facility] Address [address] [place] [address] Care Team Providers Care Child Care Associate Teacher Name Role Phone Aristides Merino MD Primary Care Provider [phone] Allergies Active Allergy Reactions Criticality Noted Date Comments Atenolol 04/18/2023 Other Reaction(s): Dr. Moon/ Dizzy Morphine Itching,Unknown 06/20/2018 Other Reaction(s): Other: See Comments Spasms Octacosanol 04/18/2023 Prochlorperazine Anxiety Low 05/25/2023 Other Reaction(s): Jittery Medications ALPRAZolam (Xanax) 0.25 MG tablet Take 0.25 mg by mouth as needed at bedtime Active citalopram (CeleXA) 20 MG tablet Take 20 mg by mouth in the morning. Active Active Problems Problem Noted Date Diagnosed Date Endometriosis 09/22/2023 Family History Medical History Relation Name Comments Breast cancer Maternal Grandmother Breast cancer Paternal Grandmother Relation Name Status Comments Maternal Grandmother Paternal Grandmother Social History Tobacco Use Types Packs/Day Years Used Date Smoking Tobacco: Never Assessed Comments Unknown Sex and Gender Information Value Date Recorded Sex Assigned at Not on file Legal Sex Female 10:02 PM EDT Gender Identity Not on file Sexual Orientation Not on file Last Filed Vital Signs Vital Sign Reading Time Taken Comments Blood Pressure 116/74 10/19/2023 2:22 PM EDT Pulse - - Temperature - - Respiratory Rate - - Oxygen Saturation - - Inhaled Oxygen Concentration - - Weight 84.3 kg (185 lb 12.8 oz) 10/19/2023 2:22 PM EDT Height 165.1 cm (5' 5 ) 11/25/2021 12:0 0 PM EDT Body Mass Index 30.92 11/25/2021 12:00 PM EDT Plan of Treatment Health Maintenance Due Date Last Done Comments Pap Smear 11/25/2024 11/25/2021 Influenza Vaccine (#1) 2025 06/09/2023, 2022, 03/31/2021 Cervical Cancer Screening 11/25/2026 HPV/Cotest 11/25/2026 11/25/2021 Procedures Procedure Name Priority Date/Time Associated Diagnosis Comments THINPREP TIS PAP REFLEX HPV MRNA E6/E7 (33664) Routine 11/25/2021 PAP SMEAR Routine 11/25/2021 12:00 AM EDT from Last 3 Months or Most Recently Relevant to Health Maintenance Results * THINPREP TIS PAP REFLEX HPV MRNA E6/E7 (27943) (11/25/2021) CLINICAL INFORMATION: None given [facility] LMP: NONE GIVEN [facility] PREV. PAP: NONE GIVEN [facility] PREV. BX: NONE GIVEN [facility] SOURCE: None given [facility] STATEMENT OF ADEQUACY: SEE COMMENT [facility] Comment: Satisfactory for evaluation. Endocervical/transformation zone component present. INTERPRETATION /RESULT: Negative for intraepithelial lesion or malignancy. [facility] INFECTION: Fungal organisms morphologically consistent with Moraima spp. [facility] COMMENT: This Pap test has been evaluated with computer assisted technology. [facility] CYTOTECHNOLOGI ST: SEE COMMENT [facility] Comment: NNO, CT(ASCP) CT screening location: [place] [address]. REVIEW CYTOTECHNOLOGI ST: SEE COMMENT [facility] Comment: LXT, CT(ASCP) CT screening location: [place] [address]. COMMENT SEE COMMENT [facility] Comment: EXPLANATORY NOTE: The Pap is a screening test for cervical cancer. It is not a diagnostic test and is subject to false negative and false positive results. It is most reliable when a satisfactory sample, regularly obtained, is submitted with relevant clinical findings and history, and when the Pap result is evaluated along with historic and current clinical information. 11/25/2021 us Avinash Velásquez MD [facility] Final Result [facility] * Pap Smear (11/25/2021 12:00 AM EDT) Swab Cervical swab / Unknown us Historical Provider MD LAB CYTOLOGY ORDERABLES F inal Result [facility] from Last 3 Months or Most Recently Relevant to Health Maintenance Insurance [facility] Care Teams Child Care Associate Teacher Relationship Specialty Start Date End Date Aristides Merino MD [address] [place] [address] [place] [address] PCP - General Family Medicine 09/27/23
--- OUTSIDE RECORDS SUMMARY | 2025-02-18 08:55 | XMS_ITS | Clinical Summary ---
Author Organization [facility] Address [id number] [address] [place] [address] Care Team Providers Care Mining Consultant Name Role Phone No Pcp, No Pcp Primary Care Provider Unavailabl e Allergies Active Allergy Reactions Criticality Noted Date Comments Prochlorperazine 05/25/2023 Morphine 05/25/2023 Medications citalopram (CeleXA) 20 mg tablet Take 1 tablet (20 mg total) by mouth nightly. Active ALPRAZolam (XANAX) 0.25 mg tablet Take 1 tablet (0.25 mg total) by mouth every 8 (eight) hours as needed for anxiety. Active ketorolac (TORADOL) 10 mg tablet Take 1 tablet (10 mg total) by mouth every 6 (six) hours as needed for pain. Active atenoloL (TENORMIN) 25 mg tablet Take 1 tablet (25 mg total) by mouth in the morning. 01/19/20 24 Active ibuprofen (MOTRIN) 800 mg tablet Take 1 tablet (800 mg total) by mouth every 8 (eight) hours. 60 tablet 04/06/20 24 Active acetaminophen (TYLENOL EXTRA STRENGTH) 500 mg tablet Take 2 tablets (1,000 mg total) by mouth every 8 (eight) hours. 60 tablet 04/06/20 24 Active sennosides-docusat e sodium (SENNA WITH DOCUSATE SODIUM) 8.6-50 mg Take 1 tablet by mouth in the morning and 1 tablet before bedtime. 60 tablet 04/06/20 24 Active naloxone (NARCAN) 4 mg/actuation spray,non-aerosol nasal spray Administer 1 spray (4 mg total) into alternating nostrils as needed for opioid reversal. 2 each 04/06/20 24 Active estradiol-norethin drone acet (COMBIPATCH) 0.05-0.14 mg/[address] 1 patch on the skin 2 (two) times a week. 24 patch 4 04/09/20 24 Active ondansetron ODT (ZOFRAN ODT) 4 mg disintegrating tablet Dissolve 1 tablet (4 mg total) on tongue every 8 (eight) hours as needed for nausea for up to 10 doses. 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 Endometrioma 06/10/2024 Preop testing 03/30/2024 Endometriosis 11/09/2023 Encounters Date Type Department Care Team Description 02/17/2025 7:42 PM EDT - 02/17/2025 9:55 PM EDT Emergency [facility] - Emergency [address] [place] [address] Dev Abel, Chronic abdominal pain (Primary Dx) Discharge Disposition: Home 02/17/2025 Travel 12/06/2024 5:07 PM EDT - 12/06/2024 7:49 PM EDT Emergency [facility] - Emergency [address] [place] [address] Ming Lynn, Chronic abdominal pain (Primary Dx) Discharge Disposition: Home 12/06/2024 Travel from Last 3 Months Family History Medical History Relation Name Comments Anesthesia problems Neg Hx Social History Tobacco Use Types Packs/Day Years Used Date Smoking Tobacco: Never Smokeless Tobacco: Never Tobacco Cessation:Counseling Given: Not Answered Alcohol Use Standard Drinks/Week Comments Not Currently [...] Mass Index 30.79 02/17/2025 6:25 PM EDT Plan of Treatment Upcoming Encounters Date Type Department Care Team (Late st Contact Info) Description 03/20/2025 3:30 PM EDT Office Visit [facility] Gynecology Oncology, A Department of [address] [place] [address] Adiel Aparicio MD [address] [place] [address], [address] [place] [address] Health Maintenance Due Date Last Done Comments Depression Screening 1999 Adult BMI Follow Up Plan 2005 DTaP,Tdap and Td Vaccines (1 - Tdap) 2006 COVID-19 Vaccine (3 season) 2025, 06/04/2020 Influenza Vaccine 02/11/2025 06/09/2023, 03/13/2023 Adult BMI Screening 02/17/2026 02/17/2025 Tobacco Screening 02/17/2026 02/17/2025 Pap Smear Discontinued 11/25/2021 Medical Devices Not on file Procedures Procedure Name Priority Date/Time Associated Diagnosis Comments LIPASE STAT 02/17/2025 6:33 PM EDT COMPREHENSIVE METABOLIC PANEL STAT 02/17/2025 6:33 PM EDT CBC WITH AUTO DIFFERENTIAL STAT 02/17/2025 6:33 PM EDT EXTRA TUBES TRIANA TOP ON ICE Routine 02/17/2025 6:30 PM EDT EXTRA TUBES Routine 02/17/2025 6:30 PM EDT POCT NURSING URINE MACROSCOPIC UA Routine 12/06/2024 7:18 PM EDT ER EXTRA URINE MARBLE STAT 12/06/2024 7:07 PM EDT ER EXTRA URINE CULTURE STAT 7:07 PM EDT ER EXTRA URINE STAT 12/06/2024 7:[address] ABDOMEN AND PELVIS W CONT STAT 12/06/2024 6:19 PM EDT EXTRA TUBES BLUE TOP Routine 12/06/2024 5:59 PM EDT EXTRA TUBES Routine 12/06/2024 5:59 PM EDT LIPASE STAT 12/06/2024 5:59 PM EDT LIVER PANEL STAT 12/06/2024 5:59 PM EDT BASIC METABOLIC PANEL STAT 12/06/2024 5:59 PM EDT CBC WITH AUTO DIFFERENTIAL STAT 12/06/2024 5:59 PM EDT ECG 12-LEAD STAT 12/06/2024 5:49 PM EDT from Last 3 Months Results * (ABNORMAL) CBC auto differential (02/17/2025 6:33 PM EDT) Only the most recent of2 resultswithin the time period is included. WBC 11.8(H) 4 - 11 x10E9/L 02/17/2025 6:45 PM EDT [facility] RBC Count 4.78 3.8 - 5.2 X10E12/L 02/17/2025 6:45 PM EDT [facility] Hemoglobin 11.6(L) 11.7 - 15.5 g/dL 02/17/2025 6:45 PM EDT [facility] Hematocrit 35.6 35 - 47 % 02/17/2025 6:45 PM EDT [facility] MCV 74(L) 80 - 100 fL 02/17/2025 6:45 PM EDT [facility] MCH 24.2(L) 27 - 34 pg 02/17/2025 6:45 PM EDT [facility] MCHC 32.6 32 - 36 g/dL 02/17/2025 6:45 PM EDT [facility] RDW 19.2(H) 11.5 - 15 % 02/17/2025 6:45 PM EDT [facility] Platelet Count 513(H) 150 - 450 X10E9/L 02/17/2025 6:45 PM EDT [facility] MPV 7.1 7 - 12 fL 02/17/2025 6:45 PM EDT [facility] Neutrophils % 69.3 % 02/17/2025 6:45 PM EDT [facility] Lymphocytes % 24.5 % 02/17/2025 6:45 PM EDT [facility] Monocytes % 5.3 % 02/17/2025 6:45 PM EDT [facility] Eosinophils % 0.3 % 02/17/2025 6:45 PM EDT [facility] Basophils % 0.6 % 02/17/2025 6:45 PM EDT [facility] Neutrophils Absolute (A) 8.2(H) 1.5 - 6.6 10*3/uL 02/17/2025 6:45 PM EDT [facility] Lymphocytes Absolute 2.9 1.0 - 3.5 10*3/uL 02/17/2025 6:45 PM EDT [facility] Monocytes Absolute 0.6 0.0 - 0.9 10*3/uL 02/17/2025 6:45 PM EDT [facility] Eosinophils Absolute 0.0 0.0 - 0.4 10*3/uL 02/17/2025 6:45 PM EDT [facility] Basophils Absolute 0.1 0.0 - 0.2 10*3/uL 02/17/2025 6:45 PM EDT [facility] Differential Type AUTOMATED DIFFERENTIAL 02/17/2025 6:45 PM EDT [facility] Blood Venous blood / Unknown Venipuncture / Unknown 02/17/2025 6:33 PM EDT 02/17/2025 6:36 PM EDT [facility] BLOOD ORDERABLES Fin al Result Performing Organization Address City/[facility]/ZIP Co de Phone Number [address] [place] [address], [place] * Lipase (02/17/2025 6:33 PM EDT) Only the most recent of2 resultswithin the time period is included. LIPASE 30 17 - 40 U/L 02/17/2025 6:53 PM EDT [facility] Blood Venous blood / Unknown Venipuncture / Unknown 02/17/2025 6:33 PM EDT 02/17/2025 6:36 PM EDT us [email or web address] LAB BLOOD ORDERABLES Fin al Result Performing Organization Address City/[facility]/ZIP Co de Phone Number [address] [address], [place] * (ABNORMAL) Comprehensive metabolic panel (02/17/2025 6:33 PM EDT) SODIUM 138 134 - 146 mmol/L 02/17/2025 6:55 PM EDT [facility] POTASSIUM 3.6 3.5 - 5.0 mmol/L 02/17/2025 6:55 PM EDT [facility] CHLORIDE 104 98 - 109 mmol/L 02/17/2025 6:55 PM EDT [facility] CARBON DIOXIDE 21(L) 22 - 32 mmol/L 02/17/2025 6:55 PM EDT [facility] ANION GAP 13 5 - 15 mmol/L 02/17/2025 6:55 PM EDT [facility] BLOOD UREA NITROGEN 8 5 - 23 mg/dL 02/17/2025 6:55 PM EDT [facility] CREATININE 0.87 0.40 - 1.00 mg/dL 02/17/2025 6:55 PM EDT [facility] Comment:METHOD TRACEABLE TO [facility] STANDARD GLUCOSE 118(H) 65 - 99 mg/dL 02/17/2025 6:55 PM EDT [facility] CALCIUM 9.0 8.5 - 10.5 mg/dL 02/17/2025 6:55 PM EDT [facility] TOTAL PROTEIN 8.0 6.0 - 8.0 g/dL 02/17/2025 6:55 PM EDT [facility] ALBUMIN 4.1 3.2 - 5.3 g/dL 02/17/2025 6:55 PM EDT [facility] ALKALINE PHOSPHATASE 80 39 - 130 U/L 02/17/2025 6:55 PM EDT [facility] AST 24 <=41 U/L 02/17/2025 6:55 PM EDT [facility] ALT 21 <=31 U/L 02/17/2025 6:55 PM EDT [facility] BILIRUBIN,TOTAL 0.7 0.3 - 1.2 mg/dL 02/17/2025 6:55 PM EDT [facility] EGFR Non-Race Dependent 87 >=60 ml/min/1.7 3sq.m 02/17/2025 6:55 PM EDT [facility] Comment: eGFR not reported due to non-numeric value for Creatinine. Reported eGFR is based on the CKD-EPI 2020 equation that does not use a race coefficient. Blood Venous blood / Unknown Venipuncture / Unknown 02/17/2025 6:33 PM EDT 02/17/2025 6:36 PM EDT us Dev Abel DO LAB BLOOD ORDERABLES Fin al Result [address] [place] [address], [place] * Triana Top On Ice (02/17/2025 6:30 PM EDT) Extra Tube Auto Resulted 02/17/2025 8:01 PM EDT [facility] Blood Venous blood / Unknown 02/17/2025 6:30 PM EDT 02/17/2025 6:36 PM EDT us Gabriela Ordaz [employer]OVERY [employer]ILING[employer] STUDENT TUTOR LAB BLOOD ORDERABLES Final Result Performing Organization Address City/[facility]/ZIP Co de Phone Number [address] [place] [address], [place] * (ABNORMAL) POCT Nursing Urine Macroscopic UA (12/06/2024 7:18 PM EDT) POC Urine Specific [place] 1.010 1.010, 1.015, 1.020, 1.025 12/06/2024 7:12 PM EDT [facility] POC Urine Leukocyte Esterase Negative Negative 12/06/2024 7:12 PM EDT [facility] POC Urine Nitrite Negative Negative 12/06/2024 7:12 PM EDT [facility] POC Urine pH 7.5 5.0, 6.0, 6.5, 7.0, 7.5, 8.0, 8.5, 5.5 12/06/2024 7:12 PM EDT [facility] POC Urine Protein Negative Negative 12/06/2024 7:12 PM EDT [facility] POC Urine Glucose Negative Negative 12/06/2024 7:12 PM EDT [facility] POC Urine Ketones Negative Negative 12/06/2024 7:12 PM EDT [facility] POC Urine Urobilinogen 0.2 E.U./dL 12/06/2024 7:12 PM EDT [facility] POC Urine Bilirubin Negative Negative 12/06/2024 7:12 PM EDT [facility] POC Urine Blood/HGB Small(A) Negative 12/06/2024 7:12 PM EDT [facility] Urine 12/06/2024 7:18 PM EDT 12/06/2024 7:12 PM EDT us Ming Lynn DO POINT OF CARE TEST ORDERABLES Final Result Performing Organization Address [facility] de Phone Number [address] [place] [address], [place] * Extra Urine [place] (12/06/2024 7:07 PM EDT) Extra Tube Auto Resulted 12/06/2024 9:01 PM EDT [facility] Urine Urine specimen collection, clean catch / Unknown Collection / Unknown 12/06/2024 7:07 PM EDT 12/06/2024 7:29 PM EDT us Ming Lynn DO URINE ORDERABLES Final Result Performing Organization Address City/[facility] Co de Phone Number [address] [place] [address], [place] * Extra Urine Culture (12/06/2024 7:07 PM EDT) Extra Tube Auto Resulted 12/06/2024 9:01 PM EDT [facility] Urine Urine specimen collection, clean catch / Unknown Collection / Unknown 12/06/2024 7:07 PM EDT 12/06/2024 7:29 PM EDT us Ming Lynn DO URINE ORDERABLES Final Result [facility] [address] [place] [address] [place] [address], [place] * Extra Urine (12/06/2024 7:07 PM EDT) Extra Tube Auto Resulted 12/06/2024 9:01 PM EDT [facility] Urine Urine specimen collection, clean catch / Unknown Collection / Unknown 12/06/2024 7:07 PM EDT 12/06/2024 7:29 PM EDT us Ming Lynn DO URINE ORDERABLES Final Result Performing Organization Address [facility] Co de Phone Number [address] [place] [address], [place] * CT abdomen and pelvis with contrast (12/06/2024 6:19 PM EDT) Anatomical Region Laterality Modality Body, Abdomen, Body Covera N/A Compu flo Tomography 12/06/2024 6:21 PM EDT Narrative 12/06/2024 6:25 PM EDT EXAM: ABDOMEN AND PELVIS CT WITH CONTRAST [...] Laurent Larsen MD on 12/06/2024 6:25 PM Procedure Note Laurent Larsen MD - 12/06/2024 EXAM: ABDOMEN AND PELVIS CT WITH CONTRAST CLINICAL INFORMATION: chronic RLQ pain, ovarian remnant syndrome. TECHNIQUE: CT abdomen and pelvis was performed utilizing 5 mm axialreconstructions following the uneventful administration of nonionicintravenous contrast. Coronal and sagittal reformatted images as well asdelayed excretory phase images were obtained and reviewed. Automatedexposure control was utilized. COMPARISON: 09/28/2024 FINDINGS: The limited visualized lung bases are unremarkable. The liver is unremarkable. The gallbladder is surgically absent. Thespleen is normal. The pancreas is unremarkable. The right kidney isnormal. The left kidney is normal. The adrenals are unremarkable. Thereare no dilated loops of bowel or evidence for pneumatosis or free air. Anormal appendix is identified. There is no significant free fluid. The patient is statuspost hysterectomy. IMPRESSION: 1. No acute findings in the abdomen and pelvis. 2. Normal appendix. 3. Status post hysterectomy and cholecystectomy. All CT scans at this facility use dose modulation, iterativereconstruction, and/or weight based dosing when appropriate to reduceradiation dose to as low as reasonably achievable. Finalized by Laurent Larsen MD on 12/06/2024 6:25 PM Ming Lynn DO IMG CT ORDERABLES Final Resul t * Light Blue Top (12/06/2024 5:59 PM EDT) Extra Tube Auto Resulted 12/06/2024 7:01 PM EDT [facility] Blood Venous blood / Unknown 12/06/2024 5:59 PM EDT 12/06/2024 6:06 PM EDT us Ming Lynn DO LAB BLOOD ORDERABLES Final Re sult [facility] [address] [place] [address], [place] * (ABNORMAL) Liver panel (12/06/2024 5:59 PM EDT) Pathologist [facility] TOTAL PROTEIN 7.7 6.0 - 8.0 g/dL 12/06/2024 6:42 PM EDT [facility] ALBUMIN 4.2 3.2 - 5.3 g/dL 12/06/2024 6:42 PM EDT [facility] BILIRUBIN,TOTAL 0.2(L) 0.3 - 1.2 mg/dL 12/06/2024 6:42 PM EDT [facility] ALKALINE PHOSPHATASE 70 39 - 130 U/L 12/06/2024 6:42 PM EDT [facility] AST 18 <=41 U/L 12/06/2024 6:42 PM EDT [facility] ALT 15 <=31 U/L 12/06/2024 6:42 PM EDT [facility] BILIRUBIN,DIRECT <0.1 <=0.4 mg/dL 12/06/2024 6:42 PM EDT [facility] Blood Venous blood / Unknown Venipuncture / Unknown 12/06/2024 5:59 PM EDT 12/06/2024 6:05 PM EDT us Ming Lynn DO LAB BLOOD ORDERABLES Final Re sult [address] [place] [address], [place] * (ABNORMAL) Basic Metabolic Panel (12/06/2024 5:59 PM EDT) [facility] SODIUM 138 134 - 146 mmol/L 12/06/2024 6:42 PM EDT [facility] POTASSIUM 3.4(L) 3.5 - 5.0 mmol/L 12/06/2024 6:42 PM EDT [facility] CHLORIDE 107 98 - 109 mmol/L 12/06/2024 6:42 PM EDT [facility] CARBON DIOXIDE 24 22 - 32 mmol/L 12/06/2024 6:42 PM EDT [facility] ANION GAP 7 5 - 15 mmol/L 12/06/2024 6:42 PM EDT [facility] BLOOD UREA NITROGEN 7 5 - 23 mg/dL 12/06/2024 6:42 PM EDT [facility] CREATININE 0.64 0.40 - 1.00 mg/dL 12/06/2024 6:42 PM EDT [facility] Comment:METHOD TRACEABLE TO [facility] STANDARD GLUCOSE 102(H) 65 - 99 mg/dL 12/06/2024 6:42 PM EDT [facility] CALCIUM 9.1 8.5 - 10.5 mg/dL 12/06/2024 6:42 PM EDT [facility] EGFR Non-Race Dependent >90 >=60 ml/min/1.7 3sq.m 12/06/2024 6:42 PM EDT [facility] Comment: eGFR not reported due to non-numeric value for Creatinine. Reported eGFR is based on the CKD-EPI 2020 equation that does not use a race coefficient. Blood Venous blood / Unknown Venipuncture / Unknown 12/06/2024 5:59 PM EDT 12/06/2024 6:05 PM EDT us Ming Lynn DO LAB BLOOD ORDERABLES Final Re sult [facility] [address] [place] [address], * ECG 12 lead (12/06/2024 5:49 PM EDT) 12/06/2024 5:49 PM EDT us Ming Lynn DO ECG ORDERABLES Final Result [facility] from Last 3 Months Insurance [facility] Advance Directives * Full Code (Latest Code Status on File) Date Activated Date Inactivated Comments 06/10/2024 11:25 AM 06/10/2024 4:46 PM Care Teams Mining Consultant Relationship Specialty Start Date End Date No Pcp, [place] [address] PCP - General Family Medicine 12/06/24
--- OUTSIDE RECORDS SUMMARY | 2025-02-18 08:55 | XMS_ITS | Clinical Summary ---
Author Organization [facility] Address [address] [place], [place] [id number] Care Team Providers Care Print Support Specialist Name Role Phone Jennifer Merino DO Primary Care Provider [phone] Jennifer Merino DO Unavailable [phone] Avinash Velásquez MD Unavailable [phone] Allergies Active Allergy Reactions Criticality Noted Date Comments Morphine Other: See Comments 06/20/2018 Spasms Medications diphenhydrAMINE (BENADRYL) 25 mg capsule Take 25 mg by mouth every 6 hours as needed. Active Multivitamins-I shilpa tab Take 1 tablet by mouth once daily. Active citalopram (CELEXA) 20 mg tablet Take 20 mg by mouth once daily. 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 Ovarian cyst 05/30/2018 Overview (05/30/2018): Added automatically from request for surgery [id number] Hydrosalpinx 05/30/2018 Overview (05/30/2018): Added automatically from request for surgery [id number] Pelvic pain 05/30/2018 Overview (05/30/2018): Added automatically from request for surgery [id number] Immunizations Immunization Administration Dates Next Due influenza vaccine, unspecified formulation 06/09 Family History Medical History Relation Comments Diabetes Father Heart Father bypass surgery, stents, [place] Hyperlipidemia Father Hypertension Father Diabetes Mother Hyperlipidemia Mother Hypertension Mother Relation Status Comments Father Alive Mother Alive Social History Tobacco Use Types Packs/Day Years Used Date Smoking Tobacco: Never Passive Smoke Exposure: Past Smokeless Tobacco: Never Tobacco Cessation:Counseling Given: Not Answered Alcohol Use Standard Drinks/Week Comments Yes 0 (1 standard drink = 0.6 oz pur e alcohol) socially PHQ-2 Answer Date Recorded PHQ2 Score 0 07/06/2018 Area Deprivation Index Answer Date Enoch rded National Score (1-100), lower number is lower ri sk 78 06/23/2023 State Score (1-10), lower number is lower risk 6 06/23/2023 Data from: https://www.neighborhoodatlas.medicine.[facility].edu/. Last address used for calculation [address] 06/23/2023 Comments No Sex and Gender Information Value Date Recorded Sex Assigned at Not on file Legal Sex Female 8:14 AM EST Gender Identity Not on file Sexual Orientation Not on file Last Filed Vital Signs Vital Sign Reading Time Taken Comments Blood Pressure 135/95 06/22/2023 10:16 PM EST Pulse 88 06/22/2023 10:16 PM EST Temperature 36.2 C (97.2 F) 06/22/2023 5:34 PM EST Respiratory Rate 18 06/22/2023 10:16 PM EST Oxygen Saturation 100% 06/22/2023 10:16 PM EST Inhaled Oxygen Concentration - - Weight 83 kg (183 lb) 06/22/2023 5:34 PM EST Height 165.1 cm (5' 5 ) 03/10/2022 1:54 PM EDT Body Mass Index 30.45 03/10/2022 1:54 PM EDT Plan of Treatment Health Maintenance Due Date Last Done Comments Anxiety Screening 2005 Depression Screening 2005 HIV Screening 2005 DTaP,Tdap,Td Vaccine (1 - Tdap) 2006 Hepatitis B Vaccine (1 of 3 - 19+ 3-dose series) 2006 Cervical Cancer Screening 01/11/2008 HPV Vaccine (1 - 3-dose SCDM series) 2014 Influenza Vaccine (#1) 2025 3, 03/13/2023, 03/31/2021 Hepatitis C Screening Completed 06/22/2023 Procedures Procedure Name Priority Date/Time Associated Diagnosis Comments HEPATITIS C VIRUS (HCV) RNA, QUANTITATIVE PCR, PLASMA/SERUM STAT 06/22/2023 10:12 PM EST from Last 3 Months or Most Recently Relevant to Health Maintenance Results * HCV QUANT RNA BY PCR (06/22/2023 10:12 PM EST) HCV RNA HCV RNA not detected by PCR. HCV RNA not detected by PCR. GEOVANNA ROSEMARIE 6800 06/23/2023 10:15 AM EST [facility] Blood BLOOD SPECIMEN / Unknown Venipuncture / Unknown 06/22/2023 10:12 PM EST 06/22/2023 10:15 PM EST Narrative [facility] - 06/23/2023 10:15 AM EST The Linear Range of this assay is 15 IU/ml to 100,000,000 IU/ml us Brenden Griffin MD LABORATORY Final R esult [facility] [address] [id number], from Last 3 Months or Most Recently Relevant to Health Maintenance Insurance BLUE CARD PPO OOS Care Teams Print Support Specialist Relationship Specialty Start Date End Date Jennifer Merino DO [address] [place] [address] PCP - General 11/27/07 Jennifer Merino DO [address] [place] [address] Referring Family Medicine 04/03/19 Avinash Velásquez MD [address] [facility] [address] [place] [address] Referring House Designer 11/30/21
--- OUTSIDE RECORDS SUMMARY | 2025-02-18 08:55 | XMS_ITS | Encounter Summary ---
Author Organization [facility] Address [id number] [address] [place] [address] Care Team Providers Care Varnish Maker Name Role Phone No Pcp, No Pcp Primary Care Provider Unavailabl e Encounter Details Date Type Department Care Team (Late st Contact Info) Description 10/26/2023 [facility] [address] [place] [address] Florinda Paez, RN Social History Tobacco Use Types Packs/Day Years Used Date Smoking Tobacco: Never Smokeless Tobacco: Never Alcohol Use Standard Drinks/Week Comments Yes 0 (1 standard drink = 0.6 oz pur e alcohol) socially Childcare Answer Date Recorded Childcare Unknown 11/20/2018 Employment Answer Date Recorded Employment Unknown 11/20/2018 Hunger Screening Answer Date Recorded Within the past 12 months we worried whether our food would run out before we got money to buy more. Never True 10/25/2023 Within the past 12 months th e food we bought just didn't last and we didn't have money to get more. Never True 10/25/2023 Comments No Sex and Gender Information Value Date Recorded Sex Assigned at Not on file Legal Sex Female 2:15 PM EDT Gender Identity Not on file Sexual Orientation Not on file documented as of this encounter Miscellaneous Notes * Telephone Encounter - Florinda Paez RN - 10/26/2023 8:57 AM EDT Left VM to schedule new patient appt with consulting practice director onc, call back # provided. * Telephone Encounter - Jasmyn Ion - 10/26/2023 8:57 AM EDT Patient called back to schedule appt. She's all set for 11/08 at 3PM with Markus. documented in this encounter Plan of Treatment Upcoming Encounters Date Type Department Care Team (Late st Contact Info) Description 03/20/2025 3:30 PM EDT Office Visit [facility] Gynecology Oncology, A Department of [address] [place] [address] Adiel Aparicio MD [address] [place] [address], [address] [place] [address] documented as of this encounter Visit Diagnoses Not on filedocumented in this encounter Care Teams Varnish Maker Relationship Specialty Start Date End Date No Pcp, [place] [address] PCP - General Family Medicine 12/06/24 documented as of this encounter
--- OUTSIDE RECORDS SUMMARY | 2025-02-18 08:55 | XMS_ITS | Patient Health Record ---
Author Organization [facility] Address [address] [place] [address] Care Team Providers Care Nurse Charge Rn Name Role Phone Dr. Dennis Camacho Primary Care Provider Akhil Hall Unavailable [phone] Enedina Orellana Unavailable [phone] Reason For Referral No Information Plan Of Treatment No Information Insurance Providers Payer Name Payer Address Payer Phone Subscriber Number Group Number Insured Name Patient Relationship to Insured Coverage Start Date Coverage End Date [facility] [address] [place] [address] [id number] JENNIFER DE LOS SANTOS Spouse - patient is the spouse of the insured 4
--- OUTSIDE RECORDS SUMMARY | 2025-02-18 08:55 | XMS_ITS | Encounter Summary ---
Author Organization [facility] Address [address] [id number] Care Team Providers Care Affiliate Marketing Coordinator Name Role Phone Aristides Merino DO Primary Care Provider [phone] Aristides Merino DO Unavailable [phone] Avinash Velásquez MD Unavailable [phone] Source Comments In the event this information is protected by the Federal Confidentiality of Alcohol and Drug AbusePatient Records regulations: The Federal rules restrict any use of the information to criminally investigate or prosecute any alcohol or drug abuse patient.[facility] Encounter Details Date Type Department Care Team (Latest Contact Info) Description 10/09/2020 H&P External-NonCCF Provider, External, PAPeg Do not enter address information under generic External Provider. Social History Tobacco Use Types Packs/Day Years Used Date Smoking Tobacco: Never Smokeless Tobacco: Never Alcohol Use Standard Drinks/Week Comments Yes 0 (1 standard drink = 0.6 oz pur e alcohol) socially PHQ-2 Answer Date Recorded PHQ2 Score 0 07/06/2018 Area Deprivation Index Answer Date Enoch rded National Score (1-100), lower number is lower ri sk Not on file 05/19/2020 State Score (1-10), lower number is lower risk N ot on file 05/19/2020 Data from: https://www.neighborhoodatlas.[facility]/. Last address used for calculation Not on file 05/19/2020 Comments No Sex and Gender Information Value Date Recorded Sex Assigned at Not on file Legal Sex Female 8:14 AM EST Gender Identity Not on file Sexual Orientation Not on file COVID-19 Exposure Response Date Recorded In the last month, have you been in contact with someone who was confirmed or suspected to have Coronavirus / COVID-19? No / Unsure 10/08/2020 3:25 PM EDT documented as of this encounter Functional Status * Are you deaf or do you have serious difficulty hearing? Answer Date of Assessment Author No 07/07/2018 8:26 PM Angeles Garza RN * Are you blind or do you have serious difficulty seeing, even when wearing glasses? Answer Date of Assessment Author No 07/07/2018 8:26 PM Angeles Garza RN * Do you have serious difficulty walking or climbing stairs? Answer Date of Assessment Author No 07/07/2018 8:26 PM Angeles Garza RN * Do you have difficulty dressing or bathing? Answer Date of Assessment Author No 07/07/2018 8:26 PM Angeles Garza RN * Because of a physical, mental, or emotional condition, do you have difficulty doing errands alone such as visiting a doctor's office or shopping? Answer Date of Assessment Author No 07/07/2018 8:26 PM Angeles Garza RN documented as of this encounter Mental Status * Because of a physical, mental, or emotional condition, do you have serious difficulty concentrating, remembering, or making decisions? 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
--- OUTSIDE RECORDS SUMMARY | 2025-02-18 08:55 | XMS_ITS | Clinical Summary ---
Author Organization [facility] Address [address] [place] [address] Care Team Providers Care Tobacco Dipper Name Role Phone Unavailable Primary Care Provider Unavailabl e Allergies Active Allergy Reactions Criticality Noted Date Comments Prochlorperazine 08/01/2024 Morphine Hives,Itching Medium 06/20/2018 Other Reaction(s): Other, Other: See Comments, Unknown, Unknown Reaction Other Reaction(s): Other: See Comments Spasms Spasms Other Reaction(s): Other: See Comments Spasms Spasms Medications Multiple Vitamins-Iron (QC Daily Multivitamins/Ir on) tablet Take 1 tablet by mouth daily. Active ALPRAZolam 0.25 MG tablet Take 1 tablet by mouth. 4 Active Atenolol 25 MG tablet Take 1 tablet by mouth daily. 4 Active Citalopram 20 MG tablet Take 1 tablet by mouth daily. 3 Active clindamycin 300 MG capsule 4 Active Fluconazole 150 MG tablet TAKE 1 TABLET BY MOUTH ONCE 4 Active ketorolac 10 MG tablet Take 1 tablet by mouth Every 6 hours as needed. Active nabumetone 750 MG tablet take 1 tablet by mouth every 12 hours as needed for pain 3 Active Ondansetron 4 MG Tab Dispersible tablet Place 1 tablet under tongue. 4 Active traMADol 50 MG tablet TAKE 1 TABLET BY MOUTH EVERY 6 HOURS NEEDED FOR PAIN FOR UP TO 3 DAYS. TAKE LOWEST DOSE POSSIBLE 4 Active oxyCODONE-acetam inophen 5-325 MG per tabletIndication s:Lower abdominal pain Take 1 tablet by mouth every 6 hours as needed for Moderate Pain for up to 7 days. 20 tablet 4 Active naloxone 4 MG/0.1ML 1 spray by Nasal route once for 1 dose. [place] into the nose as directed. Call 911. If no response in 2 minutes use a new nasal spray in other nostril. Repeat until help arrives. 1 Each 4 Active hydroCODone-acet aminophen 5-325 MG tabletIndication s:Pelvic and perineal pain,Endometrios is,Ovarian remnant syndrome Take 1 tablet by mouth every 6 hours as needed for Severe Pain or Moderate Pain for up to 3 days. 12 tablet 5 Active Social History Tobacco Use Types Packs/Day Years Used Date Smoking Tobacco: Never Smokeless Tobacco: Never Tobacco Cessation:Counseling Given: Not Answered Alcohol Use Standard Drinks/Week Comments Yes 0 (1 standard drink = 0.6 oz pur e alcohol) social Comments No Sex and Gender Information Value Date Recorded Sex Assigned at Not on file Legal Sex Female 12:50 PM EDT Gender Identity Not on file Sexual Orientation Not on file Last Filed Vital Signs Vital Sign Reading Time Taken Comments Blood Pressure 144/83 08/01/2024 7:22 PM EST Pulse 115 08/01/2024 7:22 PM EST Temperature 37.4 C (99.4 F) 08/01/2024 7:22 PM EST Respiratory Rate 16 08/01/2024 7:22 PM EST Oxygen Saturation 100% 08/01/2024 7:22 PM EST Inhaled Oxygen Concentration - - Weight - - Height 165.1 cm (5' 5 ) 02/24/2024 8:29 PM EDT Body Mass Index - - Plan of Treatment Health Maintenance Due Date Last Done Comments HEPATITIS C VIRUS SCREENING 1987 TETANUS 1987 HIV SCREENING DISCUSSION 2002 HEP B VACCINE (1 of 3 - 19+ 3-dose series) 2006 TDAP (ADULT) 2006 CERVICAL CANCER SCREENING DISCUSSION 01/11/2008 HPV VACCINE (1 - 3-dose SCDM series) 2014 COVID-19 VACCINE (2024-2 6 season) 2025 07/02/2020, 06/04/2020 INFLUENZA VACCINE (#1) 2025 3, 03/13/2023 PNEUMOCOCCAL VACCINE SERIES Aged Out No longer eligible based on patient's age to complete this topic
--- OUTSIDE RECORDS SUMMARY | 2025-02-18 08:55 | XMS_ITS | Encounter Summary ---
Author [facility] Address [facility] [id number] [address] [place] [address] Care Team Providers Care Crematory Operator Name Role Phone No Pcp, No Pcp Primary Care Provider Unavailabl e Reason for Referral * Consultation (Routine) - Closed Specialty Diagnoses / Procedures Referred By Gina perez Referred To Contact Obstetrics Diagnoses [place]counter [place] [address] [place] [address], [address] [place] [address] Phone: tel: fax: Genny Cottrell MD [address] [place] [address] 3, [facility] [place] [address] Phone: tel: fax: Referral ID Status Reason Start Date Expiration Date V isits Requested Visits Authorized [id number] Closed Specialty Services Required 11/23/2023 11/22/2024 1 1 Encounter Details Date Type Department Care Team (Late st Contact Info) Description 11/23/2023 Orders Only [facility] On[facility] [address] [place] [address] [address] [place] [id number] Marcie Figueroa RN Encounter for fertility planning (Primary Dx) Social History Tobacco Use Types Packs/Day Years [...] Description 03/20/2025 3:30 PM EDT [facility] A Department of [address] [place] [phone] Adiel Aparicio MD [address] [place] [address], [address] [place] [address] Scheduled Referrals Name Type Priority Associated Diagnoses Order Schedule Ambulatory referral to Infertility (Non-[facility]) Outpatient Referral Routine Encounter for fertility planning 1 Occurrences starting 11/23/2023 until 11/22/2024 documented as of this encounter Visit Diagnoses Diagnosis Encounter for fertility planning- Primary documented in this encounter Care Teams Crematory Operator Relationship Specialty Start Date End Date No Pcp, [place] [address] PCP - General Family Medicine 12/06/24 documented as of this encounter
--- NOTE | 2025-02-18 09:06 | CT_ITS ---
The [address] [address] Patient Name: ANTONIA DE LOS SANTOS MRN: [id number] date: 1985 Sex: F Assigned Patient Location: ER Current Patient Location: ER Accession/Order Number: [id number] Exam Date: 02/18/2025 09:20 Report Date: 02/18/2025 09:57 At the request of: CARLOS BULLOCK MD Procedure: CT abdomen pelvis w con CT ABDOMEN AND PELVIS WITH CONTRAST COMPARISON: 04/12/2024 CLINICAL DATA: Right lower quadrant pain for the past day. History of endometriosis. Spiral images were obtained through the abdomen and pelvis following 100 mL of Omnipaque 300. This CT exam was performed using one or more following dose reduction techniques: Automated exposure control, adjustment of the mA and/or kV according to patient size, or use of iterative reconstruction technique. Limited cuts through the lung bases show no contributory findings. The top of the liver is not included in its entirety. No intrahepatic masses are identified. The gallbladder is surgically absent. That may be the etiology of mild biliary prominence. The spleen, pancreas and adrenal glands show no acute findings. Minor right adrenal limb calcification is again seen. There are symmetric renal nephrograms. No hydronephrosis is identified. The abdominal aorta is normal caliber. There are small scattered mesenteric lymph nodes. No ascites is identified. The small bowel loops are not distended though there are some that contain fluid. There is mild stool along the colon. There is a normal retrocecal appendix. The bony structures are intact. Images through the pelvis show no dilated small bowel loops. There is minimal distal colonic stool. No diverticular disease is seen. The uterus is surgically absent. There are small cystic areas within the left ovary measuring up to 18 mm. The urinary bladder is poorly distended for assessment. No ascites is seen. CT/CT abdomen pelvis w con IMPRESSION: MILD BILIARY PROMINENCE WHICH IS LIKELY SECONDARY TO PREVIOUS CHOLECYSTECTOMY. NO BOWEL OR URINARY TRACT OBSTRUCTION. NO EVIDENCE OF APPENDICITIS. SMALL LEFT OVARIAN FOLLICLES. NO OTHER ACUTE FINDINGS. Impression dictated by: Alesha Tejada M.D. 02/18/2025 9:57 AM Dictation Location: [place] [address] Electronically authenticated by: [id number] Y Date: 02/18/2025 09:57
--- OUTSIDE RECORDS SUMMARY | 2025-02-18 09:06 | XMS_ITS | CCD ---
Author Organization [facility] Care Team Providers Care President And Chief Operating Officer Name Role Phone DO Jennifer Duran Primary Care Provider DO Augustus Santiago Attending Provider [phone] DO Amaury Barlow Emergency Provider Jennifer Duran Primary Care Physician Jennifer Duran Unavailable DO Jennifer Duran Primary Care Provider [phone] DO Jennifer Duran Attending Provider Jennifer Duran DO Primary Care Provider Jennifer Duran DO Unavailable Didier BARNETT, Penola P Unavailable Jennifer Duran DO Primary Care Provider Jennifer Duran DO Unavailable [phone] DO Jennifer Duran Primary Care Provider [phone] DO Jennifer Duran Attending Provider MD Yevgeniy [...] Unavailable DO Jennifer Duran Primary Care Provider [phone] DO Elier Jackson Emergency Provider DO Sarah Childress Emergency Provider UnaMD Megan Gongora Admit Provider MD Megan Muniz Attending Provider DO Kiko Saenz Other Provider MD Christi Aquino Attending Provider DO Jaime Aleman Attending Provider LLC, GENERIC Primary Care Physician Unavailab DO Jennifer Rm Primary Care Provider [phone] DO Elier bacon Emergency Provider DO Jaime Aleman Attending Provider DO Sarah Childress Emergency Provider UnaMD Megan Gongora Admit Provider [phone] MD Christi Aquino Attending Provider DO Kiko Saenz Other Provider NO FAMILY, PHYSICIAN Primary Care Provider Unava ilable MD MCKINLEY, EVGENY Attending Unavailable JENNIFER DURAN Primary Care Unavailable DO Elier bacon Emergency Provider [phone] NONE, XXXX Primary Care Physician Unavailab DESTINI Sheehan Attending Unavailable TARUN BRADEN Attending Unavailable Jennifer Duran DO Primary Care Provider Unavail able DO Jennifer Duran Primary Care Provider CATY Corbett Emergency Provider [phone] DO Jennifer Duran Attending Provider Jennifer Duran [...] Girvin, Jennifer Primary Care Unavailable [facility] - [facility], Jaime P Attending Unavailable Kuns - [...] Other: See Comments, Itching (finding), Itching, Hives [facility] (19 sources) Atenolol Drug Allergy 04-18-[address] Cantu/ [facility] (6 sources) seasoninig Propensity to adverse reactions Unknown [employer] Other (1 source) Morphine Drug Allergy 07-28-19 23 [facility] (19 sources) Seasonal allergy Propensity to adverse reactions 04-18-20 23 Unknown, [facility] (20 sources) Prochlorperazine; Translations: [prochlorperazine ] Drug Allergy 05-25-20 Feeling nervous (finding), Anxiety [facility] (1 source) Morphine Drug Allergy 04-30-20 [facility] (4 sources) Atenolol Propensity to adverse reactions to drug 04-18-20 [facility] (4 sources) Phenothiazine Propensity to adverse reactions to drug 05-25-20 Anxiety, Itching [facility] (4 sources) Octacosanol Propensity to adverse reactions to drug 04-18-20 [facility] (5 sources) No Known Medication Allergies; Translations: [No Known Medication Allergies] Propensity to adverse reactions (disorder) [facility] Repository Medications Current Medications Medication Drug [...] for 3 day(s), 9 tab(s), Refill(s) 0, [facility]/pharmacy #[id number], 165, cm, 06/24/24 19:33:00 EST, Height/Length [...] for 3 day(s), 12 tab(s), Refill(s) 0, [facility]/pharmacy #[id number], 165.1, cm, 07/31/23 15:42:00 EST, Height/Length [...] day(s), # 250 mL, Refills(s) 0, Pharmacy: [facility]/pharmacy #[id number], 166, cm, 12/04/21 12:54:00 EDT, [...] for 7 day(s), 14 tab(s), Refill(s) 0, [facility]/pharmacy #[id number], 165.1, cm, 02/13/24 0:28:00 EDT, [...] q12hr, # 20 tab(s), Refills(s) 0, Pharmacy: [facility]/pharmacy #[id number], 165, cm, 09/26/23 14:18:00 EDT, Height/Length Dosing, 81.2, kg, 09/26/23 14:18:00 EDT, Weight Dosing Start Date: 09/26/23 Status: Ordered docusate sodium 50 mg / sennosides, chcf 8.6 mg oral tablet (6 sources) Start: [...] April 28, 2022 1:50am 84 hr estradiol 0.74150 mg/hr / norethindrone acetate 0.08416 mg/hr transdermal system (6 sources) Estrogen Start: [...] day(s), # 20 tab(s), Refills(s) 0, Pharmacy: [facility]/pharmacy #[id number], 165, cm, 09/26/23 14:18:00 EDT, [...] for 10 day(s), 22 gm, Refill(s) 0, [facility]/pharmacy #[id number], 166, cm, 12/04/21 12:54:00 EDT, [...] by Nasal route once for 1 dose. [place] into the nose as directed. Call 911. [...] day(s), # 12 cap(s), Refills(s) 0, Pharmacy: [facility]/pharmacy #[id number], 165.1, cm, 04/24/23 [...] 12 March 29, 2023 polyethylene glycol 3350 51614 mg powder for oral solution (2 sources) Osmotic Laxative Start: 09-26-2023 End: 10-03-2023 take 17 g by mouth once daily Miralax 3350 17 gram packet 17 gm, Oral, Daily, X 7 day(s), # 119 gm, Refills(s) 0, Pharmacy: [facility]/pharmacy #[id number], 165, cm, 09/26/23 14:18:00 EDT, [...] Drug Class(es) Dates Sig (Normalized) Sig (Original) [id number] 200 actuat albuterol 0.09 mg/actuat metered dose [...] 30 mg oral tablet (7 sources) Uncompetitive O-ftmrzl-O-aspartate Receptor Antagonist, Sigma-1 Agonist Start: take 1 tablet by mouth every six hours as needed [place] DMT 30-30 MG 1 tablet Orally q6 [...] 07/14/24 at 1900 take 1 capsule by [facility] every six hours as needed diphenhydrAMINE (BENADRYL) [...] 2024 ED Clinical Summary ED Clinical Summary [place] [address] ED Clinical Summary Person Information Name: ANTONIA NOYOLA/[facility] Age: 40 Years : 1985 Sex: Female Language: Danish PCP: NONE, XXXX Marital Status: Visit Id: [...] 01/15/2025 04:09:02 ADDRESS: [address] [place] [id number] PHYS DOC NOTES: MEDICAL INFORMATION: Prescriptions Given: [...] 1:Chronic abdominal pain; Other chronic pain Normal [facility] ED Note-Physicianon 01-16-20 ED Note-Physician ED Note-Physician [...] She did have hysterectomy and oophorectomy at [facility]. The patient states on May she had ultrasound of her pelvis which showed a cystic mass on the right pelvic area which possible was endometrioma, seroma or possible abscess. The patient states that she is scheduled for another surgery at [facility] for the mass. But, she states that when she went to get that consultation the doctor had an emergency and was not able to meet with her and now that appointment has been delayed. 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 Patient stated that she walked here. Review [...] hands were washed with hospital supplied hand pumper gauger apprentice and then nonlatex gloves were applied. I [...] I did review the patient's images from [facility] as well as from [facility]. None of the images ever showed [...] amount of (more content not included)... Normal [facility] Comment on above: Result Comment: Elec tronically Signed By: Angeles Ellsworth D.O.\.br\Date and Time Signed: 01/15/25 04:47 EDT ED Patient Summaryon 025 ED Patient Summary ED Patient Summary [place] [id number] Patient Discharge Instructions Person Information Name: ANTONIA NOYOLA Age: 40 Years Arrival Date: 01/15/2025 02:39:31 Discharge Diagnosis: 1:Chronic abdominal pain; Other chronic pain Primary Care Physician: NONE, XXXX Provider Information Primary Provider: Angeles Ellsworth D.O. M Advanced Admitting Office Escort:None The exam and treatment you received in the Emergency Department were for an urgent problem and are not intended as complete care. It is important that you follow up with a doctor, nurse practitioner, or physician???s chef assistant for ongoing care. If your symptoms [...] opioids can be used to help relieve djqrybgs-ls-blvxoc pain and are often prescribed following a [...] be struggling with addiction, tell your health skin care instructor and ask for guidance or call [facility]???S National Helpline at (more content not included)... Normal [facility] U Drug Screenon 01-15-2025 U Amph Scr Negative Normal NEGATIVE [facility] Comment on above: Result Comment: Nega tive Cutoff: <1000 ng/mL Performed By: #### 2 [id number] #### [facility] [address] [place] [address] U Amy Scr Negative Normal NEGATIVE [facility] Comment on above: Result Comment: Nega tive Cutoff: <200 ng/mL Performed By: #### 2 [id number] #### [facility] [address] [place] [address] U Benzodia Scr Positive Abnormal NEGATIVE [facility] Comment on above: Result Comment: If c onfirmation is required, please notify the lab within 72 hours Result verified by repeat analysis, Unconfirmed by alternate method Negative Cutoff: <200 ng/mL Performed By: #### 2 [id number] #### [facility] [address] [place] [address] U Cannab Scr Negative Normal NEGATIVE [facility] Comment on above: Result Comment: Nega tive Cutoff: <50 ng/mL Performed By: #### 2 [id number] #### [facility] [address] [place] [address] U Cocaine Scr Negative Normal NEGATIVE [facility] Comment on above: Result Comment: Nega tive Cutoff: <300 ng/mL Performed By: #### 2 [id number] #### [facility] [address] [place] [address] U Fentanyl Negative Normal NEGATIVE [facility] Comment on above: Result Comment: Nega tive Cutoff: <5 ng/mL These drug screen results are to be used for medical (i.e., treatment) purposes only. Unconfirmed drug screening results must not be used for non-medical purposes (e.g., employment testing, legal testing). Performed By: #### 2 [id number] #### [facility] [address] [place] [address] U Opiate Scr Negative Normal NEGATIVE [facility] Comment on above: Result Comment: Nega tive Cutoff: <300 ng/mL Performed By: #### 2 [id number] #### [facility] [address] [place] [address] U PCP Scr Negative Normal NEGATIVE [facility] Comment on above: Result Comment: Nega tive Cutoff: <25 ng/mL These drug screen results are to be used for medical (i.e., treatment) purposes only. Unconfirmed drug screening results must not be used for non-medical purposes (e.g., employment testing, legal testing). Performed By: #### 2 [id number] #### [facility] [address] [place] [address] UA with Cult [employer] 01-16-20 25 Color (U) Colorless Abnormal Yellow [facility] Comment on above: Result Comment: Micr oscopic readings are only performed on those samples that meet specific criteria set forth by [facility]. Performed By: #### 4 [id number] #### [facility] [address] [place] [address] Glucose (U) [Mass/Vol] Negative Normal Negative [facility] Comment on above: Performed By: #### 4 [id number] #### [facility] [address] [place] [address] Ketones Ql (U) Negative Normal Negative [facility] Comment on above: Performed By: #### 4 [id number] #### [facility] [address] [place] [address] UA Blood Negative Normal Negative [facility] Comment on above: Performed By: #### 4 [id number] #### [facility] [address] [place] [address] UA Bacteria Trace Normal Trace [facility] Comment on above: Performed By: #### 4 [id number] #### [facility] [address] [place] [address] UA Clarity Clear Normal Clear [facility] Comment on above: Performed By: #### 4 [id number] #### [facility] [address] [place] [address] UA Leuk Est Negative Normal Negative [facility] Comment on above: Performed By: #### 4 [id number] #### [facility] [address] [place] [address] UA Mucous Negative Normal Negative [facility] Comment on above: Performed By: #### 4 [id number] #### [facility] [address] [place] [address] UA Nitrite Negative Normal Negative [facility] Comment on above: Performed By: #### 4 [id number] #### [facility] [address] [place] [address] UA pH 6.5 Invalid Interpretation Code 5.0-9.0 [facility] Comment on above: Performed By: #### 4 [id number] #### [facility] [address] [place] [address] UA Protein Negative Normal Negative [facility] Comment on above: Performed By: #### 4 [id number] #### [facility] [address] [place] [address] UA RBC 0-3 Normal 0-3 [facility] Comment on above: Performed By: #### 4 [id number] #### [facility] [address] [place] [address] UA Spec Grav 1.009 Invalid Interpretation Code 1.005-1.030 [facility] Comment on above: Performed By: #### 4 [id number] #### [facility] [address] [place] [address] UA Squam Epithelial 0-2 Invalid Interpretation Code [facility] Comment on above: Performed By: #### 4 [id number] #### [facility] [address] [place] [address] UA Urobilinogen Negative Normal Negative [facility] Comment on above: Performed By: #### 4 [id number] #### [facility] [address] [place] [address] UA WBC 0-5 Normal 0-5 [facility] Comment on above: Performed By: #### 4 [id number] #### [facility] [address] [place] [address] Urobilinogen (U) [Mass/Vol] Negative Normal Negative [facility] Comment on above: Performed By: #### 4 [id number] #### [facility] [address] [place] [address] UA Spec Desc Clean Catch Normal [facility] Comment on above: Performed By: #### 4 [id number] #### [facility] [address] [place] [address] BASIC METABOLIC PANELon -2 Anion gap [Moles/Vol] 7 mmol/L Normal 5-15 [facility] Comment on above: Performed By: #### C BCA, CMP, 3040-3, 49042-7, 1987-10, #### [facility] ([id number]) [address] [place] [address] Calcium [Mass/Vol] 9.1 mg/dL Normal 8.5-10.5 [place] Comment on above: Performed By: #### C BCA, CMP, 3040-3, 19247-6, 1987-10, #### [facility] ([id number]) [address] [place] [address] Chloride [Moles/Vol] 107 mmol/L Normal 98-109 [facility] Comment on above: Performed By: #### C BCA, CMP, 3040-3, 15011-1, 1987-10, #### [facility] ([id number]) [address] [place] [address] 24309 CO2 [Moles/Vol] 24 mmol/L Normal 22-32 [facility] Comment on above: Performed By: #### C BCA, CMP, 3040-3, 27888-0, 1987-10, #### [facility] ([id number]) [address] [place] [address] 83567 Creatinine [Mass/Vol] 0.64 mg/dL Normal 0.40-1.00 [facility] Comment on above: Result Comment: METH OD TRACEABLE TO IDMS STANDARD Performed By: #### C BCA, CMP, 3040-3, 93692-2, 1987-10, #### [facility] ([id number]) [address] [place] [address] 11706 EGFR (CKD-EPI) NON-RACE DEPENDENT >^90 Normal >=60 [facility] Comment on above: Result Comment: eGFR not reported due to non-numeric value for Creatinine. Reported eGFR is based on the CKD-EPI 2020 equation that does not use a race coefficient. Performed By: #### C BCA, CMP, 3040-3, 95182-1, 1987-10, #### [facility] ([id number]) [address] [place] [address] 28079 Glucose [Mass/Vol] 102 mg/dL High 65-99 [place] Comment on above: Performed By: #### C BCA, CMP, 3040-3, 53577-2, 1987-10, #### [facility] ([id number]) [address] [place] [address]3437 Potassium [Moles/Vol] 3.4 mmol/L Low 3.5-5.0 [facility] Comment on above: Performed By: #### C BCA, CMP, 3040-3, 76206-2, 1987-10, #### [facility] ([id number]) [address] [place] [address] 54481 Sodium [Moles/Vol] 138 mmol/L Normal 134-146 [place] Comment on above: Performed By: #### C BCA, CMP, 3040-3, 87674-2, 1987-10, #### [facility] ([id number]) [address] [place] [address] 39672 Urea nitrogen [Mass/Vol] 7 mg/dL Normal 5-23 [facility] Comment on above: Performed By: #### C BCA, CMP, 3040-3, 48356-2, 1987-10, #### [facility] ([id number]) [address] [place] [address] 99150 CBC WITH AUTO DIFFERENTIALon 12-06-2024 BASOPHILS ABSOLUTE COUNT (10*3/UL) BY AUTOMATED COUNT 0.1 10*3/uL Normal 0.0-0.2 [facility] Comment on above: Performed By: #### C BCA, CMP, 3040-3, 25923-7, 1987-10, #### [facility] ([id number]) [address] [place] [address] 20585 BASOPHILS RELATIVE PERCENT BY AUTOMATED COUNT 0.9 % Normal [facility] Comment on above: Performed By: #### C BCA, CMP, 3040-3, 35949-5, 1987-10, #### [facility] ([id number]) [address] [place] [address] 24222 CELLAVISION DIFFERENTIAL TYPE AUTOMATED DIFFERENTIAL Normal [facility] Comment on above: Performed By: #### C BCA, CMP, 3040-3, 51221-3, 1987-10, #### [facility] ([id number]) [address] [place] [address] 71579 Eosinophils (Bld) [#/Vol] 0.1 10*3/uL Normal 0.0-0.4 [facility] Comment on above: Performed By: #### C BCA, CMP, 3040-3, 22621-8, 1987-10, #### [facility] ([id number]) [address] [place] [address] 20607 EOSINOPHILS RELATIVE PERCENT BY AUTOMATED COUNT 0.7 % Normal [facility] Comment on above: Performed By: #### C BCA, CMP, 3040-3, 87071-6, 1987-10, #### [facility] ([id number]) [address] [place] [address] Erythrocyte distribution width (RBC) [Ratio] 19.6 % High 11.5-15 [facility] Comment on above: Performed By: #### C STEVE JOE, 0-3, , 1987-10, #### [facility] ([id number]) [address] [place] [address] 83391 Hematocrit (Bld) [Volume fraction] 36.0 % Normal 35-47 [facility] Comment on above: Performed By: #### C STEVE JOE, 3, , 1987-10, #### [facility] ([id number]) [address] [place] [address] 71327 Hemoglobin (Bld) [Mass/Vol] 11.3 g/dL Low 11.7-15.5 [facility] Comment on above: Performed By: #### Leila JOE CMP, 3, , 1987-10, #### [facility] ([id number]) [address] [place] [address] 74060 LYMPHOCYTES ABSOLUTE COUNT (10*3/UL) BY AUTOMATED COUNT 2.3 10*3/uL Normal 1.0-3.5 [facility] Comment on above: Performed By: #### Leila JOE CMP, 3039-3, , 1987-10, #### [facility] ([id number]) [address] [place] [address] 57070 LYMPHOCYTES RELATIVE PERCENT BY AUTOMATED COUNT 26.4 % Normal [facility] Comment on above: Performed By: #### Leila JOE CMP, 0-3, , 1987-10, #### [facility] ([id number]) [address] [place] [address] 14896 MCH (RBC) [Entitic mass] 23.6 pg Low 27-34 [facility] Comment on above: Performed By: #### C BCA, CMP, 3040-3, 62842-8, 1987-10, #### [facility] ([id number]) [address] [place] [address] 70474 MCHC (RBC) [Mass/Vol] 31.3 g/dL Low 32-36 [facility] Comment on above: Performed By: #### C BCA, CMP, 3040-3, 76541-1, 1987-10, #### [facility] ([id number]) [address] [place] [address] 67691 MCV (RBC) [Entitic vol] 75 fL Low 80-100 [facility] Comment on above: Performed By: #### C BCA, CMP, 0-3, , 1987-10, #### [facility] ([id number]) [address] [place] [address] 45849 MONOCYTES ABSOLUTE COUNT (10*3/UL) BY AUTOMATED COUNT 0.6 10*3/uL Normal 0.0-0.9 [facility] Comment on above: Performed By: #### C BCA, CMP, 3040-3, 07840-5, 1987-10, #### [facility] ([id number]) [address] [place] [address] 07669 MONOCYTES RELATIVE PERCENT BY AUTOMATED COUNT 6.9 % Normal [facility] Comment on above: Performed By: #### C BCA, CMP, 3040-3, 01909-0, 1987-10, #### [facility] ([id number]) [address] [place] [address] 67050 NEUTROPHILS ABSOLUTE COUNT BY AUTOMATED COUNT 5.7 10*3/uL Normal 1.5-6.6 [facility] Comment on above: Performed By: #### C BCA, CMP, 3040-3, 73755-6, 1987-10, #### [facility] ([id number]) [address] [place] [address] 01700 NEUTROPHILS RELATIVE PERCENT BY AUTOMATED COUNT 65.1 % Normal [facility] Comment on above: Performed By: #### C BCA, CMP, 3040-3, 66116-9, 1987-10, #### [facility] ([id number]) [address] [place] [address] 54069 Platelet mean volume (Bld) [Entitic vol] 8.6 fL Normal 7-12 [facility] Comment on above: Performed By: #### C HEATH, CMP, 3039-3, , 1987-10, #### [facility] ([id number]) [address] [place] [address] 55336 Platelets (Bld) [#/Vol] 593 10*3/uL High 150-450 [facility] Comment on above: Performed By: #### C HEATH, CMP, 0-3, , 1987-10, #### [facility] ([id number]) [address] [place] [address] 41857 RBC COUNT 4.78 X10E12/L Normal 3.8-5.2 [facility] Comment on above: Performed By: #### Leila BCA, CMP, 3040-3, , 1987-10, #### [facility] ([id number]) [address] [place] [address] 45455 WBC (Bld) [#/Vol] 8.7 10*3/uL Normal 4-11 [place] Comment on above: Performed By: #### Leila BCA, CMP, 3040-3, 98029-4, 1987-10, #### [facility] ([id number]) [address] [place] [address] ABDOMEN AND PELVIS W CONT on [...] Larsen MD on 12/06/2024 6:25 PM Normal [facility] LIPASEon 12-06-2024 Lipase [Catalytic activity/Vol] 44 U/L High 17-40 [facility] Comment on above: Performed By: #### C BCA, CMP, 3040-3, 49470-6, #### [facility] ([id number]) [address] [place] [address] 62317 LIVER PANELon 12-06-2024 Albumin [Mass/Vol] 4.2 g/dL Normal 3.2-5.3 [place] Comment on above: Performed By: #### C BCA, CMP, 3040-3, 33954-3, #### [facility] ([id number]) [address] [place] [address] 42130 ALP [Catalytic activity/Vol] 70 U/L Normal 39-130 [facility] Comment on above: Performed By: #### C BCA, CMP, 3040-3, 95884-8, 1987-10, #### [facility] ([id number]) [address] [place] [address] 43526 ALT [Catalytic activity/Vol] 15 U/L Normal <=31 [facility] Comment on above: Performed By: #### C BCA, CMP, 3040-3, 17743-6, 1987-10, #### [facility] ([id number]) [address] [place] [address] 73020 AST [Catalytic activity/Vol] 18 U/L Normal <=41 [facility] Comment on above: Performed By: #### C BCA, CMP, 3040-3, 60427-5, 1987-10, #### [facility] ([id number]) [address] [place] [address] 86234 Bilirubin [Mass/Vol] 0.2 mg/dL Low 0.3-1.2 [facility] Comment on above: Performed By: #### C BCA, CMP, 3040-3, 29883-4, 1987-10, #### [facility] ([id number]) [address] [place] [address] 97537 Bilirubin.indirect [Mass/Vol] mg/dL Normal <=0.4 [facility] Comment on above: Performed By: #### C BCA, CMP, 3040-3, 51569-1, 1987-10, #### [facility] ([id number]) [address] [place] [address] 95525 Protein [Mass/Vol] 7.7 g/dL Normal 6.0-8.0 [place] Comment on above: Performed By: #### C BCA, CMP, 3040-3, 94891-3, 1987-10, #### [facility] ([id number]) [address] [place] [address] 43771 POCT NURSING URINE MACROSCOP IC UAon 12-06-2024 BILIRUBIN AUDREY Negative Normal Negative [facility] Comment on above: Performed By: #### C BCA, CMP, 3040-3, 81490-6, 1987-10, #### [facility] ([id number]) [address] [place] [address] 92908 BLOOD/HGB AUDREY Small Abnormal Negative [facility] Comment on above: Performed By: #### C BCA, CMP, 3040-3, 91554-3, 1987-10, #### [facility] ([id number]) [address] [place] [address] 17990 GLUCOSE AUDREY Negative Normal Negative [facility] Comment on above: Performed By: #### C BCA, CMP, 3040-3, 55843-2, 1987-10, #### [facility] ([id number]) [address] [place] [address] 96702 KETONES AUDREY Negative Normal Negative [facility] Comment on above: Performed By: #### C BCA, CMP, 3040-3, 61434-9, 1987-10, #### [facility] ([id number]) [address] [place] [address] 17297 LEUKOCYTE ESTERASE AUDREY Negative Normal Negative [facility] Comment on above: Performed By: #### C BCA, CMP, 3040-3, 10483-8, 1987-10, #### [facility] ([id number]) [address] [place] [address] 94387 NITRITE AUDREY Negative Normal Negative [facility] Comment on above: Performed By: #### C BCA, CMP, 3040-3, 67577-5, 1987-10, #### [facility] ([id number]) [address] [place] [address] 21128 PH AUDREY 7.5 Normal 5.0, 6.0, 6.5, 7.0, 7.5, 8.0, 8.5, 5.5 [facility] Comment on above: Performed By: #### C BCA, CMP, 3040-3, 61612-7, 1987-10, #### [facility] ([id number]) [address] [place] [address] 78959 PROTEIN AUDREY Negative Normal Negative [facility] Comment on above: Performed By: #### C BCA, CMP, 0-3, , 1987-10, #### [facility] ([id number]) [address] [place] [address] 52127 SPECIFIC GRAVITY AUDREY 1.010 Normal 1.010, 1.015, 1.020, 1.025 [facility] Comment on above: Performed By: #### C BCA, CMP, 3040-3, 43453-8, 1987-10, #### [facility] ([id number]) [address] [place] [address] 92428 UROBILINOGEN AUDREY 0.2 E.U./dL Normal [facility] Comment on above: Performed By: #### C BCA, CMP, 3040-3, , 1987-10, #### [facility] ([id number]) [address] [place] [address] 09405 CBC AND AUTO DIFFon 10-02-19 25 ABSOLUTE BASOPHIL 0.1 X10E9/L Normal 0.0-0.2 [place] Comment on above: Performed By: #### C BCA, CMP, 3040-3, 44055-5, 1987-10, #### [facility] ([id number]) [address] [place] [address] 96081 ABSOLUTE NEUTROPHIL 7.3 X10E9/L High 1.5-6.6 [facility] Comment on above: Performed By: #### C BCA, CMP, 0-3, , 1987-10, #### [facility] ([id number]) [address] [place] [address] 49041 Basophils/100 WBC (Bld) 0.6 % Normal [facility] Comment on above: Performed By: #### C BCA, CMP, 3039-3, , 1987-10, #### [facility] ([id number]) [address] [place] [address] 66768 Eosinophils (Bld) [#/Vol] 0.0 10*3/uL Normal 0.0-0.4 [facility] Comment on above: Performed By: #### C BCA, CMP, 3039-08, , 1987-10, #### [facility] ([id number]) [address] [place] [address] 15654 Eosinophils/100 WBC (Bld) 0.1 % Normal [facility] Comment on above: Performed By: #### C HEATH, CMP, 3039-08, , 1987-10, #### [facility] ([id number]) [address] [place] [address] 73061 Erythrocyte distribution width (RBC) [Ratio] 21.0 % High 11.5-15.0 [facility] Comment on above: Performed By: #### C BCA, CMP, 3039-3, , 1987-10, #### [facility] ([id number]) [address] [place] [address] 01337 Hematocrit (Bld) [Volume fraction] 35.8 % Normal 35-47 [facility] Comment on above: Performed By: #### C BCA, CMP, 3040-3, 32575-0, 1987-10, #### [facility] ([id number]) [address] [place] [address] 81756 Hemoglobin (Bld) [Mass/Vol] 11.4 g/dL Low 11.7-15.5 [facility] Comment on above: Performed By: #### C BCA, CMP, 0-3, , 1987-10, #### [facility] ([id number]) [address] [place] [address] 73705 Lymphocytes (Bld) [#/Vol] 1.8 10*3/uL Normal 1.0-3.5 [facility] Comment on above: Performed By: #### C BCA, CMP, 3039-3, , 1987-10, #### [facility] ([id number]) [address] [place] [address] 63832 Lymphocytes/100 WBC (Bld) 18.4 % Normal [facility] Comment on above: Performed By: #### C BCA, CMP, 0-3, , 1987-10, #### [facility] ([id number]) [address] [place] [address] 34973 MCH (RBC) [Entitic mass] 24.0 pg Low 27-34 [facility] Comment on above: Performed By: #### C BCA, CMP, 3040-3, 52887-9, 1987-10, #### [facility] ([id number]) [address] [place] [address] 57883 MCHC (RBC) [Mass/Vol] 31.8 g/dL Low 32-36 [facility] Comment on above: Performed By: #### C BCA, CMP, 3040-3, 19038-1, 1987-10, #### [facility] ([id number]) [address] [place] [address] 51829 MCV (RBC) [Entitic vol] 76 fL Low 80-100 [facility] Comment on above: Performed By: #### C HEATH, CMP, 3040-3, 41575-6, 1987-10, #### [facility] ([id number]) [address] [place] [address] 05761 Monocytes (Bld) [#/Vol] 0.5 10*3/uL Normal 0-0.9 [facility] Comment on above: Performed By: #### C HEATH CMP, 3039-3, , 1987-10, #### [facility] ([id number]) [address] [place] [address] 92204 Monocytes/100 WBC (Bld) 4.9 % Normal [facility] Comment on above: Performed By: #### C HEATH, CMP, 0-3, , 1987-10, #### [facility] ([id number]) [address] [place] [address] 65109 Neutrophils/100 WBC (Bld) 76.0 % Normal [facility] Comment on above: Performed By: #### Leila JOE, CMP, 0-3, , 1987-10, #### [facility] ([id number]) [address] [place] [address] 49480 Platelet mean volume (Bld) [Entitic vol] 8.0 fL Normal 7-12 [facility] Comment on above: Performed By: #### Leila JOE, CMP, 3040-3, , 1987-10, #### [facility] ([id number]) [address] [place] [address] 33656 Platelets (Bld) [#/Vol] 503 10*3/uL High 150-450 [facility] Comment on above: Performed By: #### C BCA, CMP, 3040-3, 08041-5, 1987-10, #### [facility] ([id number]) [address] [place] [address] 10862 RBC COUNT 4.75 X10E12/L Normal 3.80-5.20 [facility] Comment on above: Performed By: #### C BCA, CMP, 3040-3, 69614-4, 1987-10, #### [facility] ([id number]) [address] [place] [address] 32636 WBC (Bld) [#/Vol] 9.6 10*3/uL Normal 4.0-11.0 [place] Comment on above: Performed By: #### C BCA, CMP, 3040-3, 90115-6, 1987-10, #### [facility] ([id number]) [address] [place] [address] 43458 COMPREHENSIVE METABOLIC PANE Van 10-01-2024 Albumin [Mass/Vol] 4.3 g/dL Normal 3.2-5.3 [place] Comment on above: Performed By: #### C BCA, CMP, 3040-3, 69932-3, 1987-10, #### [facility] ([id number]) [address] [place] [address] 99271 ALP [Catalytic activity/Vol] 76 U/L Normal 39-130 [facility] Comment on above: Performed By: #### C BCA, CMP, 3040-3, 26616-9, 1987-10, #### [facility] ([id number]) [address] [place] [address] 36270 ALT [Catalytic activity/Vol] 26 U/L Normal 0-31 [facility] Comment on above: Performed By: #### C BCA, CMP, 3040-3, 30441-3, 1987-10, #### [facility] ([id number]) [address] [place] [address] 58549 Anion gap [Moles/Vol] 10 mmol/L Normal 5-15 [facility] Comment on above: Performed By: #### C BCA, CMP, 3040-3, 54990-7, 1987-10, #### [facility] ([id number]) [address] [place] [address] 95301 AST [Catalytic activity/Vol] 24 U/L Normal 0-41 [facility] Comment on above: Performed By: #### C BCA, CMP, 3040-3, 20929-0, 1987-10, #### [facility] ([id number]) [address] [place] [address] 35185 Bilirubin [Mass/Vol] 0.3 mg/dL Normal 0.3-1.2 [facility] Comment on above: Performed By: #### C BCA, CMP, 3040-3, 03455-2, 1987-10, #### [facility] ([id number]) [address] [place] [address] 56392 Calcium [Mass/Vol] 9.6 mg/dL Normal 8.5-10.5 [place] Comment on above: Performed By: #### C BCA, CMP, 3040-3, 22394-3, 1987-10, #### [facility] ([id number]) [address] [place] [address] 41833 Chloride [Moles/Vol] 106 mmol/L Normal 98-109 [facility] Comment on above: Performed By: #### C BCA, CMP, 3040-3, 20248-2, 1987-10, #### [facility] ([id number]) [address] [place] [address] CO2 [Moles/Vol] 20 mmol/L Low 22-32 [facility] Comment on above: Performed By: #### C STEVE JEO, 3040-3, 56260-2, 1987-10, #### [facility] ([id number]) [address] [place] [address] 36458 Creatinine [Mass/Vol] 0.76 mg/dL Normal 0.40-1.00 [facility] Comment on above: Result Comment: METH OD TRACEABLE TO IDMS STANDARD Performed By: #### C STEVE JOE, 0-3, , 1987-10, #### [facility] ([id number]) [address] [place] [address] 87015 eGFR (CKD-EPI) NON-RACE DEPENDENT >90 Normal >59 [facility] Comment on above: Result Comment: Reported eGFR is based on the CKD-EPI 2020 equation that does not use a race coefficient. Performed By: #### C STEVE JOE, 0-3, , 1987-10, #### [facility] ([id number]) [address] [place] [address] 08057 Glucose [Mass/Vol] 106 mg/dL High 65-99 [place] Comment on above: Performed By: #### C STEVE JOE, 0-3, , 1987-10, #### [facility] ([id number]) [address] [place] [address] 90518 Potassium [Moles/Vol] 3.7 mmol/L Normal 3.5-5.0 [facility] Comment on above: Performed By: #### C STEVE JOE, 3040-3, 71090-1, 1987-10, #### [facility] ([id number]) [address] [place] [address] Protein [Mass/Vol] 8.1 g/dL High 6.0-8.0 [place] Comment on above: Performed By: #### C BCA, CMP, 3040-3, 50336-4, 1987-10, #### [facility] ([id number]) [address] [place] [address] 64370 Sodium [Moles/Vol] 136 mmol/L Normal 134-146 [place] Comment on above: Performed By: #### C BCA, CMP, 3040-3, 56864-8, 1987-10, #### [facility] ([id number]) [address] [place] [address] 69955 Urea nitrogen [Mass/Vol] 5 mg/dL Normal 5-23 [facility] Comment on above: Performed By: #### C BCA, CMP, 3040-3, 38479-2, 1987-10, #### [facility] ([id number]) [address] [place] [address] 83986 BASIC METABOLIC PANLon 09-28 Anion gap [Moles/Vol] 10 mmol/L Normal 5-15 [facility] Comment on above: Performed By: #### C BCA, CMP, 3040-3, 45781-0, 1987-10, #### [facility] ([id number]) [address] [place] [address] 59413 Calcium [Mass/Vol] 9.2 mg/dL Normal 8.5-10.5 [place] Comment on above: Performed By: #### C BCA, CMP, 3040-3, 69159-5, 1987-10, #### [facility] ([id number]) [address] [place] [address] 62057 Chloride [Moles/Vol] 107 mmol/L Normal 98-109 [facility] Comment on above: Performed By: #### C BCA, CMP, 3040-3, 86379-7, 1987-10, #### [facility] ([id number]) [address] [place] [address] 74180 CO2 [Moles/Vol] 20 mmol/L Low 22-32 [facility] Comment on above: Performed By: #### C BCA, CMP, 3040-3, 93329-9, 1987-10, #### [facility] ([id number]) [address] [place] [address] 53975 Creatinine [Mass/Vol] 0.78 mg/dL Normal 0.40-1.00 [facility] Comment on above: Result Comment: METH OD TRACEABLE TO IDMS STANDARD Performed By: #### C HEATH, CMP, 0-3, , 1987-10, #### [facility] ([id number]) [address] [place] [address] 68533 eGFR (CKD-EPI) NON-RACE DEPENDENT >90 Normal >59 [facility] Comment on above: Result Comment: Reported eGFR is based on the CKD-EPI 2020 equation that does not use a race coefficient. Performed By: #### C HEATH, CMP, 3040-3, 35510-1, 1987-10, #### [facility] ([id number]) [address] [place] [address] 99736 Glucose [Mass/Vol] 108 mg/dL High 65-99 [place] Comment on above: Performed By: #### C BCA, CMP, 3040-3, 11183-8, 1987-10, #### [facility] ([id number]) [address] [place] [address] 96413 Potassium [Moles/Vol] 3.5 mmol/L Normal 3.5-5.0 [facility] Comment on above: Performed By: #### C BCA, CMP, 3040-3, , 1987-10, #### [facility] ([id number]) [address] [place] [address] 57580 Sodium [Moles/Vol] 137 mmol/L Normal 134-146 [place] Comment on above: Performed By: #### C BCA, CMP, 3039-3, , 1987-10, #### [facility] ([id number]) [address] [place] [address] 13919 Urea nitrogen [Mass/Vol] 9 mg/dL Normal 5-23 [facility] Comment on above: Performed By: #### C BCA, CMP, 3039-3, , 1987-10, #### [facility] ([id number]) [address] [place] [address] 01457 CBC AND AUTO DIFFon 09-29-19 25 ABSOLUTE BASOPHIL 0.1 X10E9/L Normal 0.0-0.2 [place] Comment on above: Performed By: #### C BCA, CMP, 3039-3, , 1987-10, #### [facility] ([id number]) [address] [place] [address] 64167 ABSOLUTE NEUTROPHIL 6.8 X10E9/L High 1.5-6.6 [facility] Comment on above: Performed By: #### C BCA, CMP, 0-3, , 1987-10, #### [facility] ([id number]) [address] [place] [address] 04529 Basophils/100 WBC (Bld) 1.3 % Normal [facility] Comment on above: Performed By: #### C BCA, CMP, 0-3, , 1987-10, #### [facility] ([id number]) [address] [place] [address] 48512 Eosinophils (Bld) [#/Vol] 0.0 10*3/uL Normal 0.0-0.4 [facility] Comment on above: Performed By: #### C HEATH [facility], 3039-3, , 1987-10, #### [facility] ([id number]) [address] [place] [address] 66958 Eosinophils/100 WBC (Bld) 0.1 % Normal [facility] Comment on above: Performed By: #### C HEATH [facility], 3039-08, , 1987-10, #### [facility] ([id number]) [address] [place] [address] 78194 Erythrocyte distribution width (RBC) [Ratio] 20.5 % High 11.5-15.0 [facility] Comment on above: Performed By: #### Leila JOE [facility], 3039-08, , 1987-10, #### [facility] ([id number]) [address] [place] [address] 50205 Hematocrit (Bld) [Volume fraction] 34.3 % Low 35-47 [facility] Comment on above: Performed By: #### C HEATH [facility], 3039-08, , 1987-10, #### [facility] ([id number]) [address] [place] [address] 31207 Hemoglobin (Bld) [Mass/Vol] 11.2 g/dL Low 11.7-15.5 [facility] Comment on above: Performed By: #### C HEATH [facility], 3039-08, , 1987-10, #### [facility] ([id number]) [address] [place] [address] 02981 Lymphocytes (Bld) [#/Vol] 3.4 10*3/uL Normal 1.0-3.5 [facility] Comment on above: Performed By: #### C BCA, CMP, 3039-3, , 1987-10, #### [facility] ([id number]) [address] [place] [address] 06176 Lymphocytes/100 WBC (Bld) 30.9 % Normal [facility] Comment on above: Performed By: #### C BCA, CMP, 3039-, , 1987-10, #### [facility] ([id number]) [address] [place] [address] 54142 MCH (RBC) [Entitic mass] 24.4 pg Low 27-34 [facility] Comment on above: Performed By: #### C HEATH, CMP, 3039-08, , 1987-10, #### [facility] ([id number]) [address] [place] [address] 94868 MCHC (RBC) [Mass/Vol] 32.7 g/dL Normal 32-36 [facility] Comment on above: Performed By: #### C BCA, CMP, 3039-08, , 1987-10, #### [facility] ([id number]) [address] [place] [address] 56311 MCV (RBC) [Entitic vol] 75 fL Low 80-100 [facility] Comment on above: Performed By: #### C BCA, CMP, 3039-3, , 1987-10, #### [facility] ([id number]) [address] [place] [address] 92279 Monocytes (Bld) [#/Vol] 0.7 10*3/uL Normal 0-0.9 [facility] Comment on above: Performed By: #### C BCA, CMP, 3039-, , 1987-10, #### [facility] ([id number]) [address] [place] [address] 34038 Monocytes/100 WBC (Bld) 6.2 % Normal [facility] Comment on above: Performed By: #### C BCA, CMP, 3040-3, 85704-6, 1987-10, #### [facility] ([id number]) [address] [place] [address] 03689 Neutrophils/100 WBC (Bld) 61.5 % Normal [facility] Comment on above: Performed By: #### C BCA, CMP, 0-3, 01366-1, 1987-10, #### [facility] ([id number]) [address] [place] [address] 04316 Platelet mean volume (Bld) [Entitic vol] 7.9 fL Normal 7-12 [facility] Comment on above: Performed By: #### C BCA, CMP, 3040-3, 54016-5, 1987-10, #### [facility] ([id number]) [address] [place] [address] 31117 Platelets (Bld) [#/Vol] 473 10*3/uL High 150-450 [facility] Comment on above: Performed By: #### C BCA, CMP, 3040-3, 39747-9, 1987-10, #### [facility] ([id number]) [address] [place] [address] 60599 RBC COUNT 4.59 X10E12/L Normal 3.80-5.20 [facility] Comment on above: Performed By: #### C BCA, CMP, 3040-3, 86945-6, 1987-10, #### [facility] ([id number]) [address] [place] [address] 72312 WBC (Bld) [#/Vol] 11.0 10*3/uL Normal 4.0-11.0 [facility] Comment on above: Performed By: #### C STEVE JOE, 0-3, 55044-5, 1987-10, #### [facility] ([id number]) [address] [place] [address], [place] [address] CT ABDOMEN AND PELVIS W CONT on [...] Power MD on 09/28/2024 1:22 AM Normal [facility] LIVER PANELon 09-28-2024 Albumin [Mass/Vol] 4.2 g/dL Normal 3.2-5.3 [place] Comment on above: Performed By: #### C STEVE JOE, 0-3, 25903-8, 1987-10, #### [facility] ([id number]) [address] [place] [address] 09522 ALP [Catalytic activity/Vol] 66 U/L Normal 39-130 [facility] Comment on above: Performed By: #### C BCA, CMP, 3040-3, 01758-4, 1987-10, #### [facility] ([id number]) [address] [place] [address] 59606 ALT [Catalytic activity/Vol] 13 U/L Normal 0-31 [facility] Comment on above: Performed By: #### C BCA, CMP, 3040-3, 34267-9, 1987-10, #### [facility] ([id number]) [address] [place] [address] 03013 AST [Catalytic activity/Vol] 18 U/L Normal 0-41 [facility] Comment on above: Performed By: #### C BCA, CMP, 3040-3, 71846-7, 1987-10, #### [facility] ([id number]) [address] [place] [address] 00790 Bilirubin [Mass/Vol] 0.6 mg/dL Normal 0.3-1.2 [facility] Comment on above: Performed By: #### C BCA, CMP, 3040-3, 62633-2, 1987-10, #### [facility] ([id number]) [address] [place] [address]41 Bilirubin.indirect [Mass/Vol] mg/dL Normal 0.0-0.4 [facility] Comment on above: Performed By: #### C BCA, CMP, 3040-3, 14641-3, 1987-10, #### [facility] ([id number]) [address] [place] [address] Protein [Mass/Vol] 8.2 g/dL High 6.0-8.0 [facility] Comment on above: Performed By: #### C BCA, CMP, 3040-3, 47821-2, 1987-10, #### [facility] ([id number]) [address] [place] [address] URN MACROSCOPIC NURon 2024 BILIRUBIN AUDREY Negative Normal NEG [facility] Comment on above: Performed By: #### C BCA, CMP, 3040-3, 20591-9, 1987-10, #### [facility] ([id number]) [address] [place] [address]370 BLOOD/HGB AUDREY Negative Normal NEG [facility] Comment on above: Performed By: #### C BCA, CMP, 3039-3, , 1987-10, #### [facility] ([id number]) [address] [place] [address] [place] [address] GLUCOSE AUDREY Negative Normal NEG [facility] Comment on above: Performed By: #### C BCA, CMP, 0-3, 46513-5, 1987-10, #### [facility] ([id number]) [address] [place] [address] [place] [address] KETONES AUDREY Negative Normal NEG [facility] Comment on above: Performed By: #### C BCA, CMP, 3040-3, 10311-9, 1987-10, #### [facility] ([id number]) [address] [place] [address] [place] [address] LEUKOCYTE ESTERASE AUDREY Negative Normal NEG [facility] Comment on above: Performed By: #### C BCA, CMP, 3040-3, 52632-4, 1987-10, #### [facility] ([id number]) [address] [place] [address] NITRITE AUDREY Negative Normal NEG [facility] Comment on above: Performed By: #### C BCA, CMP, 3040-3, 45672-9, 1987-10, #### [facility] ([id number]) [address] [place] [address] PH AUDREY 6.0 Normal 5.0-8.5 [facility] Comment on above: Performed By: #### C BCA, CMP, 3040-3, 60583-7, 1987-10, #### [facility] ([id number]) [address] [place] [address] PROTEIN AUDREY Negative Normal NEG [facility] Comment on above: Performed By: #### C BCA, CMP, 3040-3, 26154-9, 1987-10, #### [facility] ([id number]) [address] [place] [address] SPECIFIC GRAVITY AUDREY <=1.005 Normal 1.003-1.035 [facility] Comment on above: Performed By: #### C BCA, CMP, 3040-3, 96312-7, 1987-10, #### [facility] ([id number]) [address] [place] [address]34[address] UROBILINOGEN AUDREY 0.2 eu/dL Normal <1.[address] [facility] Comment on above: Performed By: #### C BCA, CMP, 3040-3, 44500-1, 1987-10, #### [facility] ([id number]) [address] [place] [address] ED Note-Physicianon 08-12-19 ED Note-Physician ED Note-Physician [...] surgical repair of the endometrioma by her ASSISTED LIVING ADMINISTRATOR out of [facility] in [place]. Review of Systems A 10 point review [...] chronic pain. Patient will follow-up with her ASSISTED LIVING ADMINISTRATOR for further management of care. She was [...] XXXX NONE In 3 days 08/13/2024 [facility] Additional Instructions: Call to schedule a follow-up appointment with your surgeon for further management of care. Return to the ED with any new or worsening symptoms. Rose Royal In 3 days 08/13/2024 EST [address] [place] [address]- [facility] (1) Additional Instructions: Patient Education Chronic Pain, Adult Attestation Patient seen and evaluated by the physician chef assistant. Attending physician was present in the emergency department and supervised care. This visit was performed by both the physician and an APC. I performed all aspects of the MDM as documented. This report was transcribed using voice recognition software. Every effort was made to ensure accuracy, however, inadvertently computerized boiler repair supervisor mistakes may be present. I performed a substantive part of the MDM during the patient???s E/M visit. I personally made or approved the documented management plan and acknowledge its risk of complications (more content not included)... [facility] Comment on above: Result Comment: Elec tronically Signed By: Lexy Campos PA-C\.br\Date and Time Signed: 08/10/24 22:53 EST\.br\Electronically Co-Signed By: Jignesh Dumont DO\.br\Date and Time Co-Signed: 08/11/24 00:10 EST BMPon 08-10-2024 Anion gap [Moles/Vol] 12 mmol/L Normal 6-16 [facility] Comment on above: Performed By: #### 2 [id number] #### [facility] [address] [place] [address] Calcium [Mass/Vol] 9.7 mg/dL Normal 8.9-11.1 [facility] Comment on above: Performed By: #### 2 [id number] #### [facility] [address] [place] [address] Chloride [Moles/Vol] 105 mmol/L Normal 101-[address] [facility] Comment on above: Performed By: #### 2 [id number] #### [facility] [address] [place] [address] CO2 [Moles/Vol] 24 mmol/L Normal 21-31 [facility] Comment on above: Performed By: #### 2 [id number] #### [facility] [address] [place] [address] Creatinine [Mass/Vol] 0.7 mg/dL Normal 0.5-1.3 [facility] Comment on above: Performed By: #### 2 [id number] #### [facility] [address] [place] [address] Glucose [Mass/Vol] 107 mg/dL Normal 55-199 [facility] Comment on above: Performed By: #### 2 [id number] #### [facility] [address] [place] [address] Potassium [Moles/Vol] 3.5 mmol/L Normal 3.5-5.3 [facility] Comment on above: Performed By: #### 2 [id number] #### [facility] [address] [place] [address] Sodium [Moles/Vol] 137 mmol/L Normal 135-145 [facility] Comment on above: Performed By: #### 2 [id number] #### [facility] [address] [place] [address] Urea nitrogen [Mass/Vol] 7 mg/dL Normal 5-21 [facility] Comment on above: Performed By: #### 2 [id number] #### [facility] [address] [place] [address] Urea nitrogen/Creatinine [Mass ratio] 10 No Units Normal 10-20 [facility] Comment on above: Performed By: #### 2 [id number] #### [facility] [address] [place] [address] CBC w/ Auto Diffon 5 Basophils/100 WBC (Bld) 2.5 % High 0.0-2.0 [facility] Comment on above: Performed By: #### 2 414937 #### [facility] [address] [place] [address] Basophils/Leukocytes Auto (Bld) [Pure # fraction] 0.2 E9/L Normal 0.0-0.2 [facility] Comment on above: Performed By: #### 2 235769 #### [facility] [address] [place] [address] Eosinophils (Bld) [#/Vol] 0.0 E9/L Normal 0.0-0.5 [facility] Comment on above: Performed By: #### 2 803793 #### [facility] [address] [place] [address] Eosinophils/100 WBC (Bld) 0.4 % Normal 0.0-8.0 [facility] Comment on above: Performed By: #### 2 878225 #### [facility] [address] [place] [address] Erythrocyte distribution width (RBC) [Ratio] 20.3 % High 10.9-14.2 [facility] Comment on above: Performed By: #### 2 130888 #### [facility] [address] [place] [address] Hematocrit (Bld) [Volume fraction] 35.2 % Normal 34.0-46.0 [facility] Comment on above: Performed By: #### 2 073964 #### [facility] [address] [place] [address] Hemoglobin (Bld) [Mass/Vol] 11.3 g/dL Low 12.0-16.0 [facility] Comment on above: Performed By: #### 2 506175 #### [facility] [address] [place] [address] Lymphocytes (Bld) [#/Vol] 1.0 E9/L Normal 1.0-4.0 [facility] Comment on above: Performed By: #### 2 473486 #### [facility] [address] [place] [address] Lymphocytes/100 WBC (Bld) 12.8 % Low 14.0-50.0 [facility] Comment on above: Performed By: #### 2 462689 #### [facility] [address] [place] [address] MCH (RBC) [Entitic mass] 24.0 pg Low 27.0-34.0 [facility] Comment on above: Performed By: #### 2 463807 #### [facility] [address] [place] [address] MCHC (RBC) [Mass/Vol] 32.2 g/dL Normal 31.4-36.0 [facility] Comment on above: Performed By: #### 2 471306 #### [facility] [address] [place] [address] MCV (RBC) [Entitic vol] 74.5 fL Low 80.0-100.0 [facility] Comment on above: Performed By: #### 2 394345 #### [facility] [address] [place] [address] Monocytes (Bld) [#/Vol] 0.4 E9/L Normal 0.2-1.0 [facility] Comment on above: Performed By: #### 2 800096 #### [facility] [address] [place] [address] Neutrophils (Bld) [#/Vol] 5.9 E9/L Normal 2.0-7.5 [facility] Comment on above: Performed By: #### 2 553216 #### [facility] [address] [place] [address] Neutrophils/100 WBC (Bld) 78.8 % High 36.0-75.0 [facility] Comment on above: Performed By: #### 2 346258 #### [facility] [address] [place] [address] Platelet mean volume (Bld) [Entitic vol] 7.6 fL Normal 6.4-10.8 [facility] Comment on above: Performed By: #### 2 112398 #### [facility] [address] [place] [address] Platelets (Bld) [#/Vol] 563.0 E9/L High 150.0-500.0 [facility] Comment on above: Performed By: #### 2 772144 #### [facility] [address] [place] [address] RBC (Bld) [#/Vol] 4.7 E12/L Normal 4.3-5.9 [facility] Comment on above: Performed By: #### 2 497097 #### [facility] [address] [place] [address] WBC corrected for nucl RBC Auto (Bld) [#/Vol] 7.5 E9/L Normal 4.0-11.0 [facility] Comment on above: Performed By: #### 2 650952 #### [facility] [address] [place] [address] CHEMISTRYOrdered By: SYSTEM SYSTEM on 08-10-2024 Albumin [...] 2024 ED Clinical Summary ED Clinical Summary [address] [address] ED Clinical Summary Person Information [facility] Age[facility] 39 Years : 1985 Sex: Female Language: Danish PCP: NONE, XXXX Marital Status: Visit Id: [...] 22:42:16 08/10/2024 22:42:16 08/10/2024 22:42:16 ADDRESS: [address] [place] [id number] [facility] DOC NOTES: MEDICAL INFORMATION: Prescriptions Given: Medications to Continue with No Changes Other Medications diflunisal (diflunisal 500 mg Tab) 1 Tablets By Mouth every 12 hours. Refills: 0. PATIENT EDUCATION INFORMATION: Instructions: Chronic Pain, Adult Follow up: With: Address: When: [address], [address], [place] [address] Business (1) In 3 days 08/13/2024 With: Address: When: XXYANELIS RANGEL [place] In 3 days 08/13/2024 Comments: Call to schedule a follow-up appointment with your surgeon for further management of care. Return to the ED with any new or worsening symptoms. DIAGNOSIS: Chronic abdominal pain; Endometrioma; Other chronic pain Normal [facility] ED Patient Summaryon 025 ED Patient Summary ED Patient Summary [address] [id number] Patient Discharge Instructions Person Information Name: ANTONIA NOYOLA Age: 39 Years Arrival Date: 08/10/2024 19:35:47 Discharge Diagnosis: Chronic abdominal pain; Endometrioma; Other chronic pain Primary Care Physician: SHAZIA, XXXX Provider Information Primary Provider: Jignesh Dumont DO Advanced Admitting Office Escort:Lexy Campos PA-C The exam and treatment you received in the Emergency Department were for an urgent problem and are not intended as complete care. It is important that you follow up with a doctor, nurse practitioner, or physician???s chef assistant for ongoing care. If your symptoms [...] With: Address: When: Rose [address], [address], [place] [address] [employer] (1) In 3 days 08/13/2024 With: Address: When: XXXX SHAZIA , [place] In 3 days 08/13/2024 Comments: Call to [...] opioids can be used to help relieve cwmnbsrq-lc-kvralq pain and are often prescribed following a [...] the Food (more content not included)... Normal [facility] HEMATOLOGYOrdered By: SYSTEM SYSTEM on 08-10-2024 Basophils/100 [...] 08-10-2024 Albumin [Mass/Vol] 4.5 g/dL Normal 3.3-5.0 [facility] Comment on above: Performed By: #### 2 [id number] #### [facility] [address] [place] [address] Albumin/Globulin (S) [Mass conc ratio] 1.4 Normal 1.1-2.2 [facility] Comment on above: Performed By: #### 2 127110 #### [facility] [address] [place] [address] ALP [Catalytic activity/Vol] 61 Int._Unit/L Normal 21-98 [facility] Comment on above: Performed By: #### 2 [id number] #### [facility] [address] [place] [address] ALT No additional P-5'-P [Catalytic activity/Vol] 16 Int._Unit/L Normal 6-46 [facility] Comment on above: Performed By: #### 2 704748 #### [facility] [address] [place] [address] AST [Catalytic activity/Vol] 14 Int._Unit/L Normal 5-43 [facility] Comment on above: Performed By: #### 2 866917 #### [facility] [address] [place] [address] Bilirubin [Mass/Vol] 0.5 mg/dL Normal 0.0-1.[address] [facility] Comment on above: Performed By: #### 2 200194 #### [facility] [address] [place] [address] Bilirubin.direct [Mass/Vol] 0.1 mg/dL Normal 0.0-0.4 [facility] Comment on above: Performed By: #### 2 039432 #### [facility] [address] [place] [address] Bilirubin.indirect [Mass or moles/Vol] 0.4 mg/dL Normal 0.1-0.9 [facility] Comment on above: Performed By: #### 2 [id number] #### [facility] [address] [place] [address] Globulin (S) [Mass/Vol] 3.3 g/dL Normal 1.4-4.0 [facility] Comment on above: Performed By: #### 2 931686 #### [facility] [address] [place] [address] Protein [Mass/Vol] 7.8 g/dL Normal 6.0-7.8 [facility] Comment on above: Performed By: #### 2 [id number] #### [facility] [address] [place] [address] Lipase Levelon 08-10-2024 Lipase [Catalytic activity/Vol] 38 U/L Normal 13-58 [facility] Comment on above: Performed By: #### 2 697343 #### [facility] [address] [place] [address] UA with Cult Rflxon 08-10-19 25 Bilirubin Ql (U) Negative Normal Negative [facility] Comment on above: Performed By: #### 4 [id number] #### [facility] [address] [place] [address] Clarity (U) Clear Normal Clear [facility] Comment on above: Performed By: #### 4 [id number] #### [facility] [address] [place] [address] Color (U) Colorless Abnormal Yellow [facility] Comment on above: Result Comment: Micr oscopic readings are only performed on those samples that meet specific criteria set forth by [facility]. Performed By: #### 4 [id number] #### [facility] [address] [place] [address] Glucose Ql (U) Negative Normal Negative [facility] Comment on above: Performed By: #### 4 [id number] #### [facility] [address] [place] [address] Hemoglobin Auto test strip (U) [Mass/Vol] Negative Normal Negative [facility] Comment on above: Performed By: #### 4 [id number] #### [facility] [address] [place] [address] Ketones Auto test strip Ql (U) Negative Normal Negative [facility] Comment on above: Performed By: #### 4 [id number] #### [facility] [address] [place] [address] Leukocyte esterase Auto test strip Ql (U) Negative Normal Negative [facility] Comment on above: Performed By: #### 4 [id number] #### [facility] [address] [place] [address] Nitrite Auto test strip Ql (U) Negative Normal Negative [facility] Comment on above: Performed By: #### 4 [id number] #### [facility] [address] [place] [address] pH (U) 7.5 [pH] Invalid Interpretation Code 5.0-9.0 [facility] Comment on above: Performed By: #### 4 [id number] #### [facility] [address] [place] [address] Protein Ql (U) Negative Normal Negative [facility] Comment on above: Performed By: #### 4 [id number] #### [facility] [address] [place] [address] Specific gravity (U) [Rel density] 1.005 Invalid Interpretation Code 1.005-1.030 [facility] Comment on above: Performed By: #### 4 [id number] #### [facility] [address] [place] [address] Urobilinogen (U) [Mass/Vol] Negative Normal Negative [facility] Comment on above: Performed By: #### 4 [id number] #### [facility] [address] [place] [address] Type of Urine collection method Clean Catch Normal [facility] Comment on above: Performed By: #### 4 [id number] #### [facility] [address] [place] [address] URINALYSISOrdered By: SYSTEM SYSTEM on 08-10-2024 Bilirubin Ql (U) Negative Normal Negativemg/ dL [facility] UA Auto SS Clarity (U) Clear (08/10/24 8:58 PM) Normal Clear [facility] UA Auto SS Color (U) Colorless 1 *ABN* (08/10/24 8:58 PM) Invalid Interpretation Code Yellow [facility] UA Auto SS Comment on above: Interpretive Data: M icroscopic readings are only performed on those samples that meet specific criteria set forth by [facility]. Glucose Ql (U) Negative Normal [...] PM) Invalid Interpretation Code 5.0 - 9.0 [facility] UA Auto SS Protein Ql (U) Negative Normal Negativemg/ dL [facility] UA Auto SS Specific gravity (U) [Rel density] 1.005 *NA* (08/10/24 8:58 PM) Invalid Interpretation Code 1.005 - 1.030 [facility] Auto SS Urobilinogen (U) [Mass/Vol] Negative Normal Negativemg/ dL [facility] UA Auto SS URINALYSISOrdered By: Lexy Campos on 08-10-2024 UA Spec Desc Clean Catch (08/10/24 8:58 PM) Normal [facility] UA Auto SS Work Phone: eGFRon 08-10-2024 eGFR 114 mL/min/1.73 m2 Normal >=59 [facility] Comment on above: Performed By: #### 1 [id number] #### [facility] [address] [place] [address] ED Note-Physicianon 08-07-19 ED Note-Physician ED Note-Physician [...] with pain management as well as her ASSISTED LIVING ADMINISTRATOR at [facility] in [place]. She denies any relief in her pain. [...] she needs to have follow-up with her ASSISTED LIVING ADMINISTRATOR for likely surgery if is causing this much pain. Abdomen is soft with no rebound tenderness or guarding noted. No acute distress. She was requesting a IM shot. I discussed that Percocet is going to give at home, and I did give her a to go pack, and discussed that she needs a follow-up with either pain management or an ASSISTED LIVING ADMINISTRATOR for chronic pain. Follow-up with your primary [...] With When Contact Information Pain Clinic: [facility] [phone] In 3 days 08/08/2024 EST Additional Instructions: Call for diagnosis based follow up Savannah Petersen In 3 days 08/08/[address] [place] [address]- [facility] (1) Additional Instructions: Call Dr for diagnosis based follow up Patient Education Abdominal Pain, Adult, Whrx-ej-Areh Attestation Patient seen and evaluated by the physician chef assistant. Attending physician was present in the emergency department and supervised care. This visit was performed by both the physician and an APC. I performed all aspects of the MDM as documented. This report was transcribed using voice recognition software. Every effort was made to ensure accuracy, however, inadvertently computerized boiler repair supervisor mistakes may be present. Appropriate healthcare PPE [...] as abo (more content not included)... Normal [facility] Comment on above: Result Comment: Elec [...] known endometrioma pelvic mask. She follows with ASSISTED LIVING ADMINISTRATOR out of [place]. She was seen here couple of days [...] made to ensure accuracy, however, inadvertently computerized boiler repair supervisor mistakes may be present. Appropriate healthcare PPE [...] Diagnostic Results No qualifying data available. Normal [facility] Comment on above: Result Comment: Elec tronically Signed By: Sean Frazier PA-C\.br\Date and Time Signed: 08/05/24 11:55 EST\.br\Electronically Co-Signed By: Dimitri Vuong MD\.br\Date and Time Co-Signed: 08/07/24 08:25 EST ED Clinical Summaryon 2024 ED Clinical Summary ED Clinical Summary [address] [address] ED Clinical Summary Person Information Name: ANTONIA NOYOLA/[facility] Age: 39 Years : 1985 Sex: Female Language: Danish PCP: NONE, XXXX Marital Status: Visit Id: [...] 08/05/2024 19:29:44 08/05/2024 19:29:44 08/05/2024 19:29:44 ADDRESS: [address] [place] [address] [place] [id number] [facility] DOC NOTES: MEDICAL INFORMATION: Prescriptions Given: Medications to Continue with No Changes Other Medications diflunisal (diflunisal 500 mg Tab) 1 Tablets By Mouth every 12 hours. Refills: 0. PATIENT EDUCATION INFORMATION: Instructions: Abdominal Pain, Adult, Enjh-az-Vgpu Follow up: With: Address: When: Pain Clinic: [facility] [phone] In 3 days 08/08/2024 Comments: Call for diagnosis based follow up With: Address: When: Savannah Petersen [address] [place] [address] [facility] () In 3 days 08/08/2024 Comments: Call for diagnosis based follow up DIAGNOSIS: Chronic abdominal pain; Endometrioma; Other chronic pain Normal [facility] ED Clinical Summary ED Clinical Summary [address] [address] ED Clinical Summary Person Information Name: ANTONIA [facility]OLA[facility] Age: 39 Years : 1985 Sex: Female Language: Danish PCP: NONE, XXXX Marital Status: Visit Id: [...] 08/05/2024 11:45:03 ADDRESS: [address] [place] [id number] PHYS DOC NOTES: MEDICAL INFORMATION: Prescriptions Given: [...] abdominal pain; Endometrioma; Other chronic pain Normal [facility] ED Patient Summaryon 025 ED Patient Summary ED Patient Summary [place] [id number] Patient Discharge Instructions Person Information Name: ANTONIA NOYOLA Age: 39 Years Arrival Date: 08/05/2024 18:00:36 Discharge Diagnosis: Chronic abdominal pain; Endometrioma; Other chronic pain Primary Care Physician: NONE, XXXX Provider Information Primary Provider: Advanced Admitting Office Escort:Benjy Echeverria PA-C The exam and treatment you received in the Emergency Department were for an urgent problem and are not intended as complete care. It is important that you follow up with a doctor, nurse practitioner, or physician???s chef assistant for ongoing care. If your symptoms [...] Follow-up Instructions: With: Address: When: Pain Clinic: [facility] [phone] In 3 days 08/08/2024 Comments: Call Dr for diagnosis based follow up With: Address: When: Savannah Petersen [address] [place] [place] [address] Business (1) In 3 days 08/08/2024 Comments: Call Dr for diagnosis based follow up In the event that this physician does not participate in your insurance network, please consult with your insurance company to find a nearby participating provider. Patient Education Materials: Abdominal Pain, Adult, Ziwa-bm-Vdxs A MESSAGE TO ALL PATIENTS REGARDING OPIOIDS PRESCRIPTION OPIOIDS: WHAT YOU NEED TO KNOW Prescription opioids can be used to help relieve ruyetpgy-za-huryts pain and are often prescribed following a [...] Administration (www.fda.gov/Drugs/Res (more content not included)... Normal [facility] ED Patient Summary ED Patient Summary [place] [address] Patient Discharge Instructions Person Information Name: ANTONIA NOYOLA Age: 39 Years Arrival Date: 08/05/2024 11:06:17 Discharge Diagnosis: Chronic abdominal pain; Endometrioma; Other chronic pain Primary Care Physician: NONE, XXXX Provider Information Primary Provider: Dimitri Vuong MD Advanced Admitting Office Escort:Sean Frazier PA-C The exam and treatment you received in the Emergency Department were for an urgent problem and are not intended as complete care. It is important that you follow up with a doctor, nurse practitioner, or physician???s chef assistant for ongoing care. If your symptoms [...] opioids can be used to help relieve qjkhpvou-dt-huionc pain and are often prescribed following a [...] be struggling with addiction, tell your health skin care instructor and (more content not included)... Normal [facility] B hCG Qualon 08-02-2024 Beta HCG ( test) Ql Negative Normal [facility] Comment on above: Performed By: #### 2 [id number] #### [facility] [address] [place] [address] BMPOrdered By: SYSTEM SYSTEM on 08-02-2024 Anion gap [Moles/Vol] 14 mmol/L Normal 6-16 Rem isol Chem Comment on above: Performed By: #### 2 [id number] #### [facility] [address] [place] [address] Calcium [Mass/Vol] 9.8 mg/dL Normal 8.9-11.1 [facility] Comment on above: Performed By: #### 2 [id number] #### [facility] [address] [place] [address] Chloride [Moles/Vol] 106 mmol/L Normal 101-111 [facility] Comment on above: Performed By: #### 2 [id number] #### [facility] [address] [place] [address] CO2 [Moles/Vol] 23 mmol/L Normal 21-31 Rem[facility] hem Comment on above: Performed By: #### 2 [id number] #### [facility] [address] [place] [address] Creatinine [Mass/Vol] 0.7 mg/dL Normal 0.5-1.3 Rem isol Chem Comment on above: Performed By: #### 2 [id number] #### [facility] [address] [place] [address] Glucose [Mass/Vol] 104 mg/dL Normal 55-199 Remiso [facility] Comment on above: Performed By: #### 2 [id number] #### [facility] [address] [place] [address] Potassium [Moles/Vol] 3.9 mmol/L Normal 3.5-5.3 Rem isol Chem Comment on above: Performed By: #### 2 [id number] #### [facility] [address] [place] [address] Sodium [Moles/Vol] 139 mmol/L Normal 135-145 Remiso [facility] Comment on above: Performed By: #### 2 [id number] #### [facility] [address] [place] [address] Urea nitrogen [Mass/Vol] 6 mg/dL Normal 5-21 [facility] Comment on above: Performed By: #### 2 [id number] #### [facility] [address] [place] [address] BMPon 08-02-2024 Urea nitrogen/Creatinine [Mass ratio] 9 No Units Low 10-20 [facility] Comment on above: Performed By: #### 2 [id number] #### [facility] [address] [place] [address] CBC w/ Auto Diffon Acanthocytes LM Ql (Bld) PRESENT Invalid Interpretation Code [facility] Comment on above: Performed By: #### 2 [id number] #### [facility] 13 [place] [address]60 Hypochromia Auto Ql (Bld) PRESENT Invalid Interpretation Code [facility] Comment on above: Performed By: #### 2 [id number] #### [facility] [address] [place] [address] 72695 Microcytes Ql (Bld) PRESENT Invalid Interpretation Code [facility] Comment on above: Performed By: #### 2 [id number] #### [facility] [address] [place] [address] 95451 RBC size Nom (Bld) SEE MORPHOLOGY Invalid Interpretation Code [facility] Comment on above: Performed By: #### 2 [id number] #### [facility] [address] [place] [address] 62717 CBC w/ Auto DiffOrdered By: SYSTEM SYSTEM on 08-02-2024 Basophils/100 WBC (Bld) 1.1 % Normal 0.0-2.0 R em[facility] Comment on above: Performed By: #### 2 [id number] #### [facility] [address] [place] [address] 21495 Basophils/Leukocytes Auto (Bld) [Pure # fraction] 0.1 E9/L Normal 0.0-0.2 [facility] Comment on above: Performed By: #### 2 [id number] #### [facility] [address] [place] [address] 69488 Eosinophils (Bld) [#/Vol] 0.0 E9/L Normal 0.0-0.5 [facility] Comment on above: Performed By: #### 2 384955 #### [facility] [address] [place] [address] 02881 Eosinophils/100 WBC (Bld) 0.1 % Normal 0.0-8.0 [facility] Comment on above: Performed By: #### 2 [id number] #### [facility] [address] [place] [address] Erythrocyte distribution width (RBC) [Ratio] 20.3 % High 10.9-14.2 [facility] Comment on above: Performed By: #### 2 [id number] #### [facility] [address] [place] [address] Hematocrit (Bld) [Volume fraction] 37.6 % Normal 34.0-46.0 [facility] Comment on above: Performed By: #### 2 [id number] #### [facility] [address] [place] [address] Hemoglobin (Bld) [Mass/Vol] 12.2 g/dL Normal 12.0-16.0 [facility] Comment on above: Performed By: #### 2 158471 #### [facility] [address] [place] [address] 43866 Lymphocytes (Bld) [#/Vol] 1.8 E9/L Normal 1.0-4.0 [facility] Comment on above: Performed By: #### 2 978109 #### [facility] [address] [place] [address] Lymphocytes/100 WBC (Bld) 27.3 % Normal 14.0-50.0 [facility] Comment on above: Performed By: #### 2 403289 #### [facility] [address] [place] [address] 90350 MCH (RBC) [Entitic mass] 23.8 pg Low 27.0-34.0 [facility] Comment on above: Performed By: #### 2 009493 #### [facility] [address] [place] [address] MCHC (RBC) [Mass/Vol] 32.4 g/dL Normal 31.4-36.0 [facility] Comment on above: Performed By: #### 2 361805 #### [facility] [address] [place] [address] MCV (RBC) [Entitic vol] 73.5 fL Low 80.0-100.0 [facility] Comment on above: Performed By: #### 2 582832 #### [facility] [address] [place] [address] Monocytes (Bld) [#/Vol] 0.3 E9/L Normal 0.2-1.0 [facility] Comment on above: Performed By: #### 2 136513 #### [facility] [address] [place] [address] 67495 Neutrophils (Bld) [#/Vol] 4.3 E9/L Normal 2.0-7.5 [facility] Comment on above: Performed By: #### 2 385642 #### [facility] [address] [place] [address] 37595 Neutrophils/100 WBC (Bld) 66.7 % Normal 36.0-75.0 [facility] Comment on above: Performed By: #### 2 890335 #### [facility] [address] [place] [address] 23002 Platelet mean volume (Bld) [Entitic vol] 7.4 fL Normal 6.4-10.8 [facility] Comment on above: Performed By: #### 2 562418 #### [facility] [address] [place] [address] 08922 Platelets (Bld) [#/Vol] 452.0 E9/L Normal 150.0-500.0 [facility] Comment on above: Performed By: #### 2 953425 #### [facility] [address] [place] [address] 67817 RBC (Bld) [#/Vol] 5.1 E12/L Normal 4.3-5.9 [facility] Comment on above: Performed By: #### 2 892414 #### [facility] [address] [place] [address] 34634 WBC corrected for nucl RBC Auto (Bld) [#/Vol] 6.4 E9/L Normal 4.0-11.0 [facility]ie Comment on above: Performed By: #### 2 688759 #### [facility] [address] [place] [address] 66711 CHEMISTRYOrdered By: SYSTEM SYSTEM on 08-02-2024 Albumin/Globulin [...] MD Transcribed by: MILLIE Technologist: KAREN [facility] ED Clinical Summaryon 2024 ED Clinical Summary ED Clinical Summary [address] [address] ED Clinical Summary Person Information [facility] Age[facility] 39 Years : 1985 Sex: Female Language: Danish PCP: NONE, XXXX Marital Status: Visit Id: [...] 08/02/2024 19:06:33 ADDRESS: [address] [place] [id number] [facility] DOC NOTES: MEDICAL INFORMATION: Prescriptions Given: [...] When: Make sure to follow-up with your RESIDENTIAL YOUTH COUNSELOR at [facility]. Return to the emergency room if your pain gets worse or any new symptoms. In 3 days 08/05/2024 DIAGNOSIS: 1:Abdominal pain; 2:Pelvic mass Normal [facility] ED Note-Physicianon 08-02-19 ED Note-Physician ED [...] She did have hysterectomy and oophorectomy at [facility]. The patient states on May she had ultrasound of her pelvis which showed a cystic mass on the right pelvic area which possible was endometrioma, seroma or possible abscess. The patient states that she is scheduled for another surgery at [facility] for the mass. She is in [place] [id number]. The patient states for past 3 days [...] mass. She has an appointment with her RESIDENTIAL YOUTH COUNSELOR in [facility]. The patient was given Zofran and Dilaudid for pain and her pain improved. Will discharge patient home follow-up with her RESIDENTIAL YOUTH COUNSELOR. She is instructed to return to the [...] Information Make sure to follow-up with your RESIDENTIAL YOUTH COUNSELOR at [facility]. Return to the emergency room if your [...] 04/24/2023 Cu (more content not included)... Normal [facility] Comment on above: Result Comment: Elec tronically Signed By: Neha Hannah M.D.\.br\Date and Time Signed: 08/02/24 18:41 EST ED Patient Summaryon 025 ED Patient Summary ED Patient Summary [place] [id number] Patient Discharge Instructions Person Information Name: ANTONIA NOYOLA Age: 39 Years Arrival Date: 08/02/2024 14:41:13 Discharge Diagnosis: 1:Abdominal pain; 2:Pelvic mass Primary Care Physician: NONE, XXXX Provider Information Primary Provider: Neha Hannah M.D. Advanced Admitting Office Escort:None The exam and treatment you received in the Emergency Department were for an urgent problem and are not intended as complete care. It is important that you follow up with a doctor, nurse practitioner, or physician???s chef assistant for ongoing care. If your symptoms [...] When: Make sure to follow-up with your RESIDENTIAL YOUTH COUNSELOR at [facility]. Return to the emergency room if your [...] opioids can be used to help relieve feqmurpd-hb-oagqup pain and are often prescribed following a [...] be struggl (more content not included)... Normal [facility] Extra Blueon 08-02-2024 Tube Collected Plasma Yes Invalid Interpretation Code [facility] Comment on above: Performed By: #### 1 [id number] #### [facility] [address] [place] [address] HEMATOLOGYOrdered By: SYSTEM SYSTEM on 08-02-2024 Acanthocytes [...] Code [facility] Hep Func PanelOrdered By: Simplebooklet SYSTEM on 08-02-2024 Albumin [Mass/Vol] 4.8 g/dL Normal 3.3-5.0 [facility] Comment on above: Performed By: #### 2 712419 #### [facility] [address] [place] [address] Bilirubin [Mass/Vol] 0.5 mg/dL Normal 0.0-1.1 [facility] Comment on above: Performed By: #### 2 963278 #### [facility] [address] [place] [address] Bilirubin.direct [Mass/Vol] 0.1 mg/dL Normal 0.0-0.4 [facility] Comment on above: Performed By: #### 2 810417 #### [facility] [address] [place] [address] Bilirubin.indirect [Mass or moles/Vol] 0.4 mg/dL Normal 0.1-0.9 [facility] Comment on above: Performed By: #### 2 445498 #### [facility] [address] [place] [address] Globulin (S) [Mass/Vol] 3.6 g/dL Normal 1.4-4.0 R emisol Chem Comment on above: Performed By: #### 2 709777 #### [facility] [address] [place] [address] Protein [Mass/Vol] 8.4 g/dL High 6.0-7.8 [facility] Comment on above: Performed By: #### 2 591678 #### [facility] [address] [place] [address] Hep Func Panelon 08-02-2024 Albumin/Globulin (S) [Mass conc ratio] 1.3 Normal 1.1-2.2 [facility] Comment on above: Performed By: #### 2 573119 #### [facility] [address] [place] [address] ALP [Catalytic activity/Vol] 71 Int._Unit/L Normal 21-98 [facility] Comment on above: Performed By: #### 2 545752 #### [facility] [address] [place] [address] ALT No additional P-5'-P [Catalytic activity/Vol] 9 Int._Unit/L Normal 6-46 [facility] Comment on above: Performed By: #### 2 117692 #### [facility] [address] [place] [address] AST [Catalytic activity/Vol] 12 Int._Unit/L Normal 5-43 [facility] Comment on above: Performed By: #### 2 818025 #### [facility] [address] [place] [address] Lipase LevelOrdered By: SYST EM SYSTEM on 08-02-2024 Lipase [Catalytic activity/Vol] 41 U/L Normal 13-58 [facility] Comment on above: Performed By: #### 2 [id number] #### [facility] [address] [place] [address] SEROLOGYOrdered By: Brooke Méndez on 08-02-2024 Beta HCG ( test) Ql Negative (08/02/24 4:00 PM) Normal [facility] Man Sero UA with Cult Rflxon 08-02-19 Bilirubin Ql (U) Negative Normal Negative [facility] Comment on above: Performed By: #### 4 [id number] #### [facility] [address] [place] [address] Clarity (U) Clear Normal Clear [facility] Comment on above: Performed By: #### 4 [id number] #### [facility] [address] [place] [address] Color (U) Colorless Abnormal Yellow [facility] Comment on above: Result Comment: Micr oscopic readings are only performed on those samples that meet specific criteria set forth by [facility]. Performed By: #### 4 [id number] #### [facility] [address] [place] [address] Glucose Ql (U) Negative Normal Negative [facility] Comment on above: Performed By: #### 4 [id number] #### [facility] [address] [place] [address] Hemoglobin Auto test strip (U) [Mass/Vol] Negative Normal Negative [facility] Comment on above: Performed By: #### 4 [id number] #### [facility] [address] [place] [address] Ketones Auto test strip Ql (U) Negative Normal Negative [facility] Comment on above: Performed By: #### 4 [id number] #### [facility] [address] [place] [address] Leukocyte esterase Auto test strip Ql (U) Negative Normal Negative [facility] Comment on above: Performed By: #### 4 [id number] #### [facility] [address] [place] [address] Nitrite Auto test strip Ql (U) Negative Normal Negative [facility] Comment on above: Performed By: #### 4 [id number] #### [facility] [address] [place] [address] pH (U) 7.5 [pH] Invalid Interpretation Code 5.0-9.0 [facility] Comment on above: Performed By: #### 4 [id number] #### [facility] [address] [place] [address] Protein Ql (U) Negative Normal Negative [facility] Comment on above: Performed By: #### 4 [id number] #### [facility] [address] [place] [address] Specific gravity (U) [Rel density] 1.007 Invalid Interpretation Code 1.005-1.030 [facility] Comment on above: Performed By: #### 4 [id number] #### [facility] [address] [place] [address] Urobilinogen (U) [Mass/Vol] Negative Normal Negative [facility] Comment on above: Performed By: #### 4 [id number] #### [facility] [address] [place] [address] Type of Urine collection method Clean Catch Normal [facility] Comment on above: Performed By: #### 4 [id number] #### [facility] [address] [place] [address] URINALYSISOrdered By: SYSTEM SYSTEM on 08-02-2024 Bilirubin Ql (U) Negative Normal Negativemg/ dL [facility] UA Auto SS Clarity (U) Clear (08/02/24 4:31 PM) Normal Clear [facility] UA Auto SS Color (U) Colorless 1 *ABN* (08/02/24 4:31 PM) Invalid Interpretation Code Yellow [facility] UA Auto SS Comment on above: Interpretive Data: M icroscopic readings are only performed on those samples that meet specific criteria set forth by [facility]. Glucose Ql (U) Negative Normal [...] Urobilinogen (U) [Mass/Vol] Negative Normal Negativemg/ dL [facility] UA Auto SS URINALYSISOrdered By: Yusef Chung on 08-02-2024 UA Spec Desc Clean Catch (08/02/24 4:31 PM) Normal [facility] UA Auto SS eGFROrdered By: SYSTEM SYSTE M on 08-02-2024 eGFR 114 mL/min/1.73 m2 Normal >=59 [facility] Comment on above: Performed By: #### 1 [id number] #### [facility] [address] [place] [address] CBC AND AUTO DIFFon 07-21-19 ABSOLUTE BASOPHIL 0.1 X10E9/L Normal 0.0-0.2 [place] Comment on above: Performed By: #### Leila BCA, CMP, 3040-3, 43549-3, 1987-10, #### [facility] ([id number]) [address] [place] [address] 966[address] ABSOLUTE NEUTROPHIL 4.1 X10E9/L Normal 1.5-6.6 [facility] Comment on above: Performed By: #### Leila BCA, CMP, 3040-3, 62330-4, 1987-10, #### [facility] ([id number]) [address] [place] [address] 87629 Basophils/100 WBC (Bld) 0.9 % Normal [facility] Comment on above: Performed By: #### Leila BCA, CMP, 3040-3, 87775-6, 1987-10, #### [facility] ([id number]) [address] [place] [address] 95073 Eosinophils (Bld) [#/Vol] 0.1 10*3/uL Normal 0.0-0.4 [facility] Comment on above: Performed By: #### Leila BCA, CMP, 3040-3, 83839-0, 1987-10, #### [facility] ([id number]) [address] [place] [address] Eosinophils/100 WBC (Bld) 0.8 % Normal [facility] Comment on above: Performed By: #### C HEATH, CMP, 0-3, 20491-6, 1987-10, #### [facility] ([id number]) [address] [place] [address] 27330 Erythrocyte distribution width (RBC) [Ratio] 20.0 % High 11.5-15.0 [facility] Comment on above: Performed By: #### C HEATH, CMP, 0-3, , 1987-10, #### [facility] ([id number]) [address] [place] [address] 76[address] Hematocrit (Bld) [Volume fraction] 34.2 % Low 35-47 [facility] Comment on above: Performed By: #### Leila JOE, CMP, 3039-3, , 1987-10, #### [facility] ([id number]) [address] [place] [address] 88945 Hemoglobin (Bld) [Mass/Vol] 10.7 g/dL Low 11.7-15.5 [facility] Comment on above: Performed By: #### C HEATH, CMP, 0-3, , 1987-10, #### [facility] ([id number]) [address] [place] [address] 52026 Lymphocytes (Bld) [#/Vol] 2.3 10*3/uL Normal 1.0-3.5 [facility] Comment on above: Performed By: #### C BCA, CMP, 0-3, , 1987-10, #### [facility] ([id number]) [address] [place] [address] 84313 Lymphocytes/100 WBC (Bld) 33.8 % Normal [facility] Comment on above: Performed By: #### C BCA, CMP, 0-3, , 1987-10, #### [facility] ([id number]) [address] [place] [address] 29738 MCH (RBC) [Entitic mass] 22.6 pg Low 27-34 [facility] Comment on above: Performed By: #### C HEATH, STEVE, 3039-3, , 1987-10, #### [facility] ([id number]) [address] [place] [address] 10574 MCHC (RBC) [Mass/Vol] 31.4 g/dL Low 32-36 [facility] Comment on above: Performed By: #### C STEVE JOE, 3039-08, , 1987-10, #### [facility] ([id number]) [address] [place] [address] 89165 MCV (RBC) [Entitic vol] 72 fL Low 80-100 [facility] Comment on above: Performed By: #### C STEVE JOE, 3039-08, , 1987-10, #### [facility] ([id number]) [address] [place] [address] 41918 Monocytes (Bld) [#/Vol] 0.4 10*3/uL Normal 0-0.9 [facility] Comment on above: Performed By: #### Leila JOE, CMP, 3039-, , 1987-10, #### [facility] ([id number]) [address] [place] [address] 84910 Monocytes/100 WBC (Bld) 5.5 % Normal [facility] Comment on above: Performed By: #### Leila JOE, CMP, 0-3, , 1987-10, #### [facility] ([id number]) [address] [place] [address] 39195 Neutrophils/100 WBC (Bld) 59.0 % Normal [facility] Comment on above: Performed By: #### C BCA, CMP, 3040-3, , 1987-10, #### [facility] ([id number]) [address] [place] [address] 17527 Platelet mean volume (Bld) [Entitic vol] 7.3 fL Normal 7-12 [facility] Comment on above: Performed By: #### C BCA, CMP, 0-3, , 1987-10, #### [facility] ([id number]) [address] [place] [address] 22463 Platelets (Bld) [#/Vol] 517 10*3/uL High 150-450 [facility] Comment on above: Performed By: #### Leila JOE, CMP, 3039-3, , 1987-10, #### [facility] ([id number]) [address] [place] [address] 30486 RBC COUNT 4.76 X10E12/L Normal 3.80-5.20 [facility] Comment on above: Performed By: #### C BCA, CMP, 0-3, , 1987-10, #### [facility] ([id number]) [address] [place] [address] 50789 WBC (Bld) [#/Vol] 6.9 10*3/uL Normal 4.0-11.0 [place] Comment on above: Performed By: #### C BCA, CMP, 0-3, , 1987-10, #### [facility] ([id number]) [address] [place] [address] 90363 COMPREHENSIVE METABOLIC PANE Van 07-21-2024 Albumin [Mass/Vol] 4.3 g/dL Normal 3.2-5.3 [facility] Comment on above: Performed By: #### C BCA, CMP, 3040-3, 89009-1, 1987-10, #### [facility] ([id number]) [address] [place] [address] 41020 ALP [Catalytic activity/Vol] 75 U/L Normal 39-130 [facility] Comment on above: Performed By: #### C BCA, CMP, 3040-3, 31035-3, 1987-10, #### [facility] ([id number]) [address] [place] [address] 57153 ALT [Catalytic activity/Vol] 25 U/L Normal 0-31 [facility] Comment on above: Performed By: #### C BCA, CMP, 3040-3, 72666-9, 1987-10, #### [facility] ([id number]) [address] [place] [address] 64089 Anion gap [Moles/Vol] 8 mmol/L Normal 5-15 [facility] Comment on above: Performed By: #### C BCA, CMP, 3040-3, 68823-4, 1987-10, #### [facility] ([id number]) [address] [place] [address] 77711 AST [Catalytic activity/Vol] 26 U/L Normal 0-41 [facility] Comment on above: Performed By: #### C BCA, CMP, 3040-3, 85814-3, 1987-10, #### [facility] ([id number]) [address] [place] [address] 01391 Bilirubin [Mass/Vol] 0.6 mg/dL Normal 0.3-1.2 [facility] Comment on above: Performed By: #### C BCA, CMP, 3040-3, 76550-5, 1987-10, #### [facility] ([id number]) [address] [place] [address] 39163 Calcium [Mass/Vol] 9.5 mg/dL Normal 8.5-10.5 [place] Comment on above: Performed By: #### C BCA, CMP, 3040-3, 07954-0, 1987-10, #### [facility] ([id number]) [address] [place] [address] 75405 Chloride [Moles/Vol] 107 mmol/L Normal 98-109 [facility] Comment on above: Performed By: #### C BCA, CMP, 3040-3, 52186-0, 1987-10, #### [facility] ([id number]) [address] [place] [address] 95395 CO2 [Moles/Vol] 21 mmol/L Low 22-32 [facility] Comment on above: Performed By: #### C BCA, CMP, 3040-3, 18244-0, 1987-10, #### [facility] ([id number]) [address] [place] [address] 95455 Creatinine [Mass/Vol] 0.83 mg/dL Normal 0.40-1.00 [facility] Comment on above: Result Comment: METH OD TRACEABLE TO IDMS STANDARD Performed By: #### C BCA, CMP, 3040-3, 96354-0, 1987-10, #### [facility] ([id number]) [address] [place] [address] 28729 eGFR (CKD-EPI) NON-RACE DEPENDENT >90 Normal >59 [facility] Comment on above: Result Comment: Reported eGFR is based on the CKD-EPI 2020 equation that does not use a race coefficient. Performed By: #### C BCA, CMP, 3040-3, 98907-5, 1987-10, #### [facility] ([id number]) [address] [place] [address] 08470 Glucose [Mass/Vol] 118 mg/dL High 65-99 [place] Comment on above: Performed By: #### C HEATH, CMP, 3040-3, 09967-3, 1987-10, #### [facility] ([id number]) [address] [place] [address] 71205 Potassium [Moles/Vol] 4.0 mmol/L Normal 3.5-5.0 [facility] Comment on above: Performed By: #### C HEATH, [facility], 3040-3, 07451-4, 1987-10, #### [facility] ([id number]) [address] [place] [address] 76095 Protein [Mass/Vol] 8.2 g/dL High 6.0-8.0 [place] Comment on above: Performed By: #### C HEATH, CMP, 3040-3, 50519-7, 1987-10, #### [facility] ([id number]) [address] [place] [address] 48491 Sodium [Moles/Vol] 136 mmol/L Normal 134-146 [place] Comment on above: Performed By: #### C HEATH, CMP, 3040-3, 64186-2, 1987-10, #### [facility] ([id number]) [address] [place] [address] 49149 Urea nitrogen [Mass/Vol] 8 mg/dL Normal 5-23 [facility] Comment on above: Performed By: #### C HEATH, CMP, 3040-3, 91952-7, 1987-10, #### [facility] ([id number]) [address] [place] [address] 74083 LIPASEon 07-21-2024 Lipase [Catalytic activity/Vol] 31 U/L Normal 17-40 [facility] Comment on above: Performed By: #### C BCA, CMP, 3040-3, 24081-6, 1987-10, #### [facility] ([id number]) [address] [place] [address] 55537 URN MACROSCOPIC NURon 2024 BILIRUBIN AUDREY Negative Normal NEG [facility] Comment on above: Performed By: #### C BCA, CMP, 3040-3, 91904-0, 1987-10, #### [facility] ([id number]) [address] [place] [address] 59831 BLOOD/HGB AUDREY Negative Normal NEG [facility] Comment on above: Performed By: #### C BCA, CMP, 3040-3, 08925-8, 1987-10, #### [facility] ([id number]) [address] [place] [address] 34222 GLUCOSE AUDREY Negative Normal [facility] Comment on above: Performed By: #### C BCA, CMP, 3040-3, 83418-6, 1987-10, #### [facility] ([id number]) [address] [place] [address] [place] [address] KETONES AUDREY Negative Normal NEG [facility] Comment on above: Performed By: #### C BCA, CMP, 3040-3, 39189-4, 1987-10, #### [facility] [facility] ([id number]) [address] [place] [address] [place] [address] LEUKOCYTE ESTERASE AUDREY Negative Normal NEG [facility] Comment on above: Performed By: #### C BCA, CMP, 3040-3, 66131-0, 1987-10, #### [facility] ([id number]) [address] [place] [address] [place] [address] NITRITE AUDREY Negative Normal NEG [facility] Comment on above: Performed By: #### C BCA, CMP, 3040-3, 28838-3, 1987-10, #### [facility] ([id number]) [address] [place] [address] PH AUDREY 6.5 Normal 5.0-8.5 [facility] Comment on above: Performed By: #### C BCA, CMP, 3040-3, 24784-3, 1987-10, #### [facility] ([id number]) [address] [place] [address] PROTEIN AUDREY Negative Normal NEG [facility] Comment on above: Performed By: #### C BCA, CMP, 3040-3, , 1987-10, #### [facility] ([id number]) [address] [place] [address] SPECIFIC GRAVITY AUDREY <=1.005 Normal 1.003-1.035 [facility] Comment on above: Performed By: #### C BCA, CMP, 3040-3, 39451-1, 1987-10, #### [facility] ([id number]) [address] [place] [address] UROBILINOGEN AUDREY 0.2 eu/dL Normal <1.[address] [facility] Comment on above: Performed By: #### C BCA, CMP, 3040-3, 94259-7, 1987-10, #### [facility] ([id number]) [address] [place] [address] Coding Summaryon 07-13-2024 Coding Summary HTMLBase 64 WgagoxjaPFz3hZq+PGhlYW Q+LO9LOTXaC13stNGpsS5j N5GBTXwJAtfcKASWLGhIId BvfnOtUS4clOAdEBEa IC8+BZ8uWHOkSrjrpFHkm9 Q0yNS9N76zxj9wKTwbdZC7 RUHvGuVddwhhh0jfzGo8VN cuNmluOyBt SISteL85HQA1lP64Uj63tA MvhUWvh7nffQc9FfJjEPVk IYL6sUyyQAqaq8EvUSVkB3 9wyVQdw3V3 DQSczGhdhEVlDvEkjUZ6rV 9yEKlrgofem3ixdynaVpl4 ss60pDAjd0J4rQH5V7Ouuq S1ZYMkxSCf GwybqDBLrZ9isxyms2rcoz yxNnUhLRHyITj4IJm2BQAx mVroUgVyTV77EKP9ZNPjlv QrC9MyPCEv nKdvNsW9u8H9Io5KS0CAFa zqZ9SENFZGWYyvhTM+PC90 jw14D0TwGmeuGxu4KEAuWS N5nPC8jP4f BWYjIDrpq2U3eSG9Q0Ztzk Kjnr6zu3zeMFOoPGlxG83w cQTeq2G5SOOouGO3LNBfzE dsCpKteG71 Oyc+MRBqqVbxh3HaVihlh9 vdb8xocWh7SaskORLmbwSj gPrnKJC5m8HgPk4bEPCbxM X5tNL5mW2h GfFrMqL7DOuoF914GsEajJ GeGkxtE13kD8XguTN+PHRy Pbu8DNXvlAyvZL2sR2TvHE RpbmctbGVm kDkuIE3hDFPnmroyHRPdqJ 8sPVPcR7q9GcVrUiQ4IXhv X3DoTBGgikgbCi07tB5hMv ZkIjP1SBzm D3XendP2FIJflIJjZYmbQQ I7N14zu3C6WURtGFKmVAV0 bOB4fP7bmKbwejaxkVFcnR sgdmVydGlj JSktIKsgU405DQRutTasJo NvZGluZyBEYXRlOiAgMDEv MzEvMjAyNTwvdGQ+PHRkIH G9aZwsGHQz pQVgMLmgLk9xxWefaMgaHR 5wWCClvddkRWMwnB2zUZLe fOVdvEhgZV9hKFNryyfwv2 12YdPrTET9 LIWnhUKqN0VgyP7nZaFkFP FvTCKxD8MntAYuFNwcH636 WHjwBxC1BVBovuBtG0FmPW FsaWduOiB0 f9N5Rf1Fg5HcavvjF1YfoC NoTeGlRotlZTr2N6LiWpos dHI+HJ76MTGuFX32KZc3WV C8jXokGAtn PYEtA9XfeH4oUiYmHQEyHP RkOyc+PHRhYmxlIHdpZHRo DIoiCAUwTdHlzVtaVV1eLy 9yZGVyLWNv cFioiUHtNlDos9hmNFEcVG okTW8zwFkzN3LguYM1SJGo y0k7Cx48A25sP9DnzSX+PG SepAN8eGI9 xA1eIpUtMsB8EGrvY457Cg OrrMApHiesr1exq6ywuQn9 SpU9MHIvwpXvgSjsKUF1a9 GeKs16U19x IHdpZHRoPSIxNSUiIHZhbG hspu8eiZ5sHz3+PGNvbCB3 eFJ8uZ0mCnOlOeI9AYhzA3 49InRvcCIv Qxlvy8pqf0cpkLh4MxYwIT ZtplYjfTetEMQ8t8FrOc95 G8PmxEiws0CsYiv1jy28pM Gmu5P1kRL9 B0UvBXJxndajpXKtvLlaTY 5hCATvmdfkRAUekD2bUIYo F7g9DrPmLgQ2MCcsE5Gkpu S2AEEzkATq SQHhyQKOwT6lmqdxa8orws mpRaXcADPpQLy3WNo1GLHs sSmgGyFvUQW3PtS3NUD7rC CzqP9yhHbl qitcrP9dEod+LVB0wNBxxX FDPM6yDrtlfKF+PHRkIHN0 pZnhUPvtRYSquE2dDNYhK6 t6FoDnGnX9 BGjnO3AszxC6VDBymYTdZE NxpKSAmL9dnuxip1ylgoot IpNzJKSeCQy1YVp0XCYvdB duOiBsZWZ0 UcC9PIU2zXPhjA5qzIunru bffZ5kRsh+QmlydGggRGF0 GQe1U5KtKjg2GFYpbXvfBZ 0ncGFkZGlu Eg3ccMnpmQigOP7lXLLzhu ksp167KzBhr8tiUYNfjNHa SYolIKP0C87kn7I0KTEhTI XgBNR5jRN4 mA2sfJmoyaxqqNTypTawbx QvfRomVMbnMSozZ434TQLs iLicDqQkMNz9F3PnYun1VO PceKixTB9n eKIrDHscRe0eaCikmLrrGT 4kWXLdcmtfc589WiDtb6ac TSPtaEZtTGypSPN2R44nh4 W7YNEoFOTx IGF0tHJ0jK4ihCahupcrhS VmdDsgdmVydGljYWwtYWxp H419XSLdqFnwCvUcoBu2N6 RqZbn9ETFk bHovBT8blEHxLJvxYs5yuP ohuUtsOF1kWBWqvigcb468 XnXqm1brKNXovOYbBBqpRN C6L07rw2Z0 IWVeMPEbBVX0tFX1cC0jwK lnbjogbGVmdDsgdmVydGlj XWtfQRihU529GRBeyXhkLx BhdGllbnQg QPdmSEz2Y9EtXotpbQB+PC 45GUNpSH79xSOqkFKgs3my cQk3EcCyDQRyWQZ0sCmiNA lbv2WjHCQc B21iuIXtd1X0WOSigFavpY PvUxWhfLR3sB8wCIhxzygk q4eovxgtZgtxi6dewx30gJ 50Y81eMVby ZHRoPSIzMCUiIHZhbGlnbj 3nrU1dMe5+QOAmeXF7qKR6 hI0kVCLyCgK0FHvhX305Yl RvcCIvPjxj e9ayf4tmzJk9LgQ5OCWxhi IgwBydOBO2x8MwGq93G26p IHdpZHRoPSIyMCUiIHZhbG vbdv3srG0o Ii8+RGDhrHE7jSH2nP3rIn ArWjX3NExcH456EvWbrJOh XtvvB05xW5DlrDH+PHRyPj i4EBVtkMpw XW3peDRqASagHa5kIIV8Wh LlGtHyRJguW8JmPMSkljck uvcynJH2YEFzEZReiL08Gq 9udDogMTBw yKEQyY4bedxhf7qdpjwmJn LeHJWjBVb8SAh9QHGjrSzf HcOqRLU5WhA4WRZ8hMPhxQ 1hbGlnbjog iE7hZ1YdWFDcgapdSi46zM 1vBwQxRlY9TQswXhn+SE9X QVJELCBTVEFDSUUgTEVFPC 41FN56wZFn q8G9cVA3W7YpDZYmetbfrf tmvXQ3FHBiHUPntZ62uDAo EOdxJx9nn6T2t239ITRlPD XllW62Vh2d pGamJMJmhFQQjN2eeyemw5 rgkbjgCfLbMOCgYOi8TDa2 NCOtlDknYqTkPYB6PbV7OL K1iWUzoR2k xGmqquiesC0yVpz+MDcvMz WlPZh7DpdydCK+PHRkIHN0 wThqXUplXXOvrE4eMXGnR3 y3PuWbJdP3 ICtjA7SqEADyizytGt65rE 7xJhXaCcM7NSntI5ZfdfP2 GNQaoAMnWCysOKO9Y73yy4 K1SKZkZMZz TFU7lCG3tZ6fpBxpivgpgT VmdDsgdmVydGljYWwtYWxp U403KKQqcUkvWsR9GItdQG MzWM74MU46 jHJoo2Q1oNG0B0TtWACxjr jfkouyjAF0WLQcXJKcpF02 bRWxEWpqJd9pc7E3l988FC OgNFUabX05 Lk5mbNsdEDVdaVQWiL0niy poa7cvbfcnMvRjFPKeGGp2 VPw4OUQlmYomOhUrISV1Gj K1TMD5iRJq cY6dwMeyqlhseV5dEvz+Rk MRVJrOSC53MK08jLHdd0Y5 qMI6X9QiUIRebyxtnemspP J8ELTtRZJq bH83qCQhWCuaLy0pw6F2k3 67KOXkJGRwpW42Kh7pcRdt TPRzuEZMcE0whcvjh4qjpa ogIzAwMDAw UZn4XPx6HYUwgPvwLjVlKL F0RuX8NWP6dUDwdJ7gjMnf kepatZ8gErh+RD4bueufww U4LH04TG31 G1YeWziwoTFvaCL+PHRhYm xlIHdpZHRoPScxMDAlJyBz zUofAB1nBq2iOEGwJCYvqJ xhcHNlOiBj t3suBTEnTQiyRU7whEahF4 WhwDI9KEIve7z4Lq64B46d J2OcvWK+ILHavRX7aRA2xC 3qJrIjZwR1 XWbpV677NaNozEHsHssnc5 sjs7gdrNd1DyGgRAWfngJi gGfsUQV6c6AqCv65E22eEN dpZHRoPSIy SMYgLSKckEssct7uyB7aYr 8+MNRwpNT1jUF5pK1iRmBj GwU3DQcoP240PtLouAKaVu xsB21yR5Ut dXA+QKBoPdc3SLHnhCtdJT 0wpGYdDRzpIp7bPJI2AmVj TgEgGBpuF2MkPNCphrxkjo ujjKN3GOSp XPWfeR74Is8qlEayAz4aDO JfNNB3WQFwdYNyP1ExrW3c EbZfOXWuNZCkR8FozWAoDS blX055UDph KfT7JJBfogSeT4TnGFUrsT cjMsQ6p0F2Gi1OkEoqlTTc YI3vMaUrRJx4M2YdTzd1LV EliEusDF6v nZDjNTzrEr2bwRotmUslMX 3sBUXtxlybn985AeNld8dc CMChsEEpVVznIXK5Q09sq0 U3TVSeZIRi UTF0kLL8wN3sgFwkqxofbR VmdDsgdmVydGljYWwtYWxp S260JFSdsNpfEaNALel6P5 XeKdq2SFDm aQsyOW5ihIXwVNuzTp6ykY uzjJvjEL5jHXOvitbkv775 EpDmm3hrCEUqhBDcXCxcDU Z6D01fz1X0 QJFiZUJhUFJ8rHI4dT0ydL lnbjogbGVmdDsgdmVydGlj DHatOOryW553SWLnxGjpFa 4ITpe2Z8Ss Haj8BIMiyManAC1pkGCwEV ybQb5ioJsxfFykCC0dKMUl lkszm646JrDws5ieHDBcyK QgVGltZXM7 U75ha8Y0FTUfLZImHDA2cF X5rZ1vsLvbtyvnuBWrvMes irYjvZxcRZvsXGkzD350RK RvcDsnPlBh eWVyOjwvdGQ+HW44ie58H3 TqLoziZzr1RSPmCIU8pYJ5 xE9zNCGrBUbfr7L7nKN5W5 KrxaLxhf2o b2x (more content not included)... [facility] Coding Summaryon 07-12-2024 Coding Summary HTMLBase 64 JpubvhhpEVu1nZy+PGhlYW Q+YV0SHIEnM40bnHPcuA2m E9HFRBoEZqbjKZKBRTaBJk NsxxWvKW5ttXQpRUXe IC8+HU4uUOPiWipqdOVrg9 T3jMB5S96huj6sTLpjqKA6 XQGdHhEtexjmj0nreCg4GP cuNmluOyBt OHAuiN65KUQ5gP17Bo64uT VohXMeo9nisXd0SdYiFINx ETQ6nMccEQrnc9RkZMLeX6 3dyKOdh5P0 LCLkdPgbfVHzMkCjoOA9wR 4fCFqzbazxh1ogrfesWvq4 dx88xJQuk3U0nBU0P0Xrlr U5FWGfjUXe AdavhHTIkO0ustasz0kydl iiIsHySFKsKPa8MQl0GLKy vTtcKpKvZM02KCA2NOZqhf CcI7EfMNZg yPrhLcH8j4M8Nt1FV2NKKz ecN8ESKEZFROshbXO+PC90 pd36L0HfYastWmo1TWUeMM T0nPN6tV6m MXXzBDins4S1fZG0O0Oyiw Unlj8sf1jcUVQpMEybU43s pWBis6I6PBRtrKY8MNLfcO dnIoHbpM86 Oyc+EUXlfXsxk2RfAseyy8 bzy9cbfFl9HbksANQygyHa xPqmBKR5s1AxHp9mFYMyrL U3yBL2sL9k IxDhMgM8GBxtU071QsHdeU JqQodxX34yZ2FpyTV+PHRy Pmz4RTTljBrgER4gI0PdYM RpbmctbGVm aZxuSA3oCFRindopKCNzoT 3pQZOyC8n8QsUlBoM8HGvh H0QzZENbytfyCu17fP8nOt OqVfP8FPhb K2SwymR0TFBkvQEbXVboHR Q2H31rr1Q1UTFlZVEjJMD1 kVN4oI4cjIlmrcwgsCFaxP sgdmVydGlj GOfvAUihB811BFVecZbkWl NvZGluZyBEYXRlOiAgMDEv MzAvMjAyNTwvdGQ+PHRkIH T6hKbdZUYz iPIxVElnYk0quKjnwJpdFY 8cBEZgcjpePCNmkG4mQNId kBRquEpcST8hVUDlhmfqu2 57PtBfUXE6 YVFpgNDmP7UwmO4rDyApMX XyUDJzP7ZmxCEyTJgjA890 GDfhXnV3BOLjbhZhQ2JnTD FsaWduOiB0 g9Y1Sz4Ar0FsxbyeQ8SgtV IyFxGbPtcbOUl6Z7SaHoil dHI+JZ74LPHyFS58FJw2CV F9oWmcLVsn NZGcI2NzlK6pKxDfOPVvSA RkOyc+PHRhYmxlIHdpZHRo SGozGIBhWsNghOyePM6mXq 9yZGVyLWNv hOkbiNHlXtYfz3sjPXXfGS iyZZ1geNnpX7VvuVC2MERr g3q5Qx83X57kA4BhhSC+PG WztXX6rRX4 fP6kMyQvAxK1TEouX097Ev PkwSRwYjknc8tlk1cyeBr4 EyA0DKTopjYivCviMOX3u6 BuNo78R73z IHdpZHRoPSIxNSUiIHZhbG nofy9xnI3lQw7+PGNvbCB3 jJK9aN3nEhUrSlI3LRwbQ4 49InRvcCIv Fkvqr1rjl1lfbVj6MzMsXF UsskHuvWdeRIR6b7EkSe83 M0TbxXryq3VjSwa4ud11zI Kqj0G6nWV9 H0UtPEAeakjhdGKjjNotWK 3aQFCbvuizKYNofP6uBWRl Z5p4BbVlIgZ5HXqqN4Dhrm H3GHYqzJBg MPNteASTrC1utepfe8zvfo koWmRuYHZyLYb6KKk6JPOd aQkoUuWtYES2GbN6VOD0jH TsoH0paBph sweikW6rOdm+MCD2rFDuiT OOVB3iFberpIR+PHRkIHN0 rWewVRwtPPOauS7zVAAwR0 m6XnNdGmY9 LQlkE1KjagM4EBAehQYbHQ LntLELpL8pvjkun7bmbrfi ZsHhGKQfJIn2ZNh1RAMyzF duOiBsZWZ0 LvR5PWA7lOGxkT1zrMjavy plaR0uEwn+QmlydGggRGF0 ZHl4C1EkDex4VFNbvRyhAY 0ncGFkZGlu Pe6mjDedmSopCS0pQTRjwb huy476WiRub4jkFEAiySUf CGmgPHE1A06xg8F3JNXwTU UiQDE8bVA8 cL7uhNxbmokleCZeqNiuco NdcRlfNYfzXEdtB113HTQl iHelWaUpAEg0N6VhGzg1NY NeoQhdLL2j tLKsSTqgMf6qaHkngWpvVL 8dKLKlznodm520ZoRtd6kg WEAnnOKrVLglANV0Y73ya3 X3DYRcVMQf DAD0eOU2qO2luQldrebtoL VmdDsgdmVydGljYWwtYWxp O544CQOmiDtmEuDnwQw3S5 QuQcb8VMJq cUaqLC2xjUQaVCxkSp6weG pzqTdnTQ2xJDEuisqjz821 EgTuc9heIFNnoZUjMXarIM G0U74ub6D7 GALwTHVlJAE0bLY6rV6jmW lnbjogbGVmdDsgdmVydGlj SDszEXhiQ412SCGjaJkrDg BhdGllbnQg HMxmMDz8X0MnQklrtEI+PC 78IRZtGN33nMIutDFmv1yh iQr8OzZwVUWoNVK6vGsjHX bcf1BjCJWe D10kvSYyh0Y8MEZluKjnaB BnLlNryHW7hW9qDKibbriu s9kcubfjElyhb4tcpx71wZ 02N43dRYdc ZHRoPSIzMCUiIHZhbGlnbj 9wzQ8lEf9+XPUtwYK9vAJ6 yB0tSYPkTqH2NXioI486Ds RvcCIvPjxj o5szj7wweLo7AaQ5AYEwpi HeeVuoAHK5x9DoRh13H48y IHdpZHRoPSIyMCUiIHZhbG jmse0pdX2n Ii8+YSStpUD9gAJ8wB5cUw TlJrR0YWedB182HbZncWRg QzlgN97zR3VjeOJ+PHRyPj h7FPUpnQsh OX3trDIrXAtbTg8nKBV9Cs GsCtFiGQymU3NtLFDchegf kdinyLG0PYDfRZQtxW69Od 9udDogMTBw sNNIuJ0fwqbbi9nejrajIb XeMKAxGKj0BCy1LBXgpXhu QuIuCWH2ZiH3OZN8pYFvkY 1hbGlnbjog bH6fB3WbFPBsiatjOn37zN 5rUdKsAuL9RWxkQog+SE9X QVJELCBTVEFDSUUgTEVFPC 81AJ37iLCy e6Z9lJL8J2JsZQWvweenjq fluAB2THFkYDBzqI58sKVd ZZdqFa6ld1Z9b756HAFqDH GgcT11Ho8o tQvjNNXinUWJfB5igunin8 yqmngpNdIjYSBaHLl3MTl0 MSVroInvYqQsSXW2DlO6GD S5mAQjqQ3r uWrobhzndC1mJql+MDcvMz DsUOn0UpyviNG+PHRkIHN0 bYnkDDzeICUfcV1qYWNkB1 v3UfTwIvB9 CBssX4SvBQVeetvfBk76fN 2gAtAdSvU5THmxV1MnduT3 QDRpsLLmJIdaYNW2L03hk2 E3PHNsPGCr UHG2wYQ3oQ5lbEcdqsmpgI VmdDsgdmVydGljYWwtYWxp H946PNXptHuaUsB8FSmsLP JfWE08BZ09 cNQeo1A2hPL3G7VpUHIwir retligeXJ7VPKxEQUuuW99 rFBmHLduDb4jy1T9p406OS LjXHWdnG78 Aw4zuEzePTBnqZIAsC3ele ebm3wbhwzuRjVyGZMyPHi3 QVt1ASUmoLozCqUoSNY3Vr P7VOM0qDYj lW0pkPtkpnzcaX8rBvz+Rk GVVGfLYA89FW56hRZxl2A3 pIM4V2HhFJUkasyzczouoD L4ZYMlOECd tC92qMJsQCatZd5ft7O2c3 35FLLaWIGtzE07Hr6msDji QVGtbYTKnS5evxluj8fouq ogIzAwMDAw HZi4QAx3YWYncGpzUiJyVB C4SuP2HHE3uLEktE5npEbe rjmvmZ4mDww+CT8offpual X5HK57IX14 A9YpXmruqDNzfTZ+PHRhYm xlIHdpZHRoPScxMDAlJyBz qCkkJX9xQd7sUARnCRVidO xhcHNlOiBj k5wjLNNqYJtnJE4uiKahQ4 IlxNB5XWFmj7p8Yh30D93e R3BscTV+NBBoeOX9rFW9iN 5hPkZfFnC3 ZIgeJ625LdQmsIVsOjprg3 reg2lnaKz4CtUaMPUjdzTb rWmnYIR1l6XmUp57Z72zVV dpZHRoPSIy HHRyQQKmrBecse8jiY3eKs 8+GQSinWI0cTW5uN9zPlHy KuM1MTirX819EqXqeBKsNz slD17fK8Hi dXA+OQJcQwx1THCziHggNM 7efSReYEbjKh1dERL2KrPn ThYbRDvxI2AjMGIyazgxxm edtCV9EOFt FYTyuC13Ut7ozRshOt6gCM HwQHO8AJTblGRyX1IifS1u BwKsZJQrOIFxJ1DadYTiFD ltQ894ZZeo SjT2GZHalyXdG3MkNCLqdI geNxW2b6N6My0CbKmudFKr JX8oEtUwEKv5U4AmWxy6CU QrmRciHD7k qNEtDIamQh3ibElfuTynWT 5vMOZnowxvc383KyHfx5ly XXOjrVAkEQikCOW1I55rr0 P8JMUcSTAl DAF5vMA8aZ8qsFesuzkjkT VmdDsgdmVydGljYWwtYWxp N363DRWyuMbuIiYVYpp8Q9 KnYvt8LYRg sCvnBW9taHSuWYcjQb7vwN pezSvpYA1xQUDgrhpxj530 HjRmr6aiZYNtfGGwFJfzNS M2V81lq7G3 ZPMnUUXzJTK6iNX1dY1xdG lnbjogbGVmdDsgdmVydGlj LPbdUNixI066QYOaeFizOo 9GHxv2D2Je Cja6FIGquDraLO7qmHZfFU hyEr1miCbhwJjuSR3gRPHw oqztn541RkDue3lhXZCkxS QgVGltZXM7 Z21jl6X6WLJxNNVzMGS8kR P0tS8rqXldmnibuDKwnAqy fwBxeSlnXKedHXrlN217TX RvcDsnPlBh eWVyOjwvdGQ+PG50dr91L3 IjReudCgv4SXLwNFK3zTC1 eK8pOZZgCOouf4D7sYX6Q4 MeqyLbdf0i b2x (more content not included)... Normal [facility] ED Clinical Summaryon 2024 ED Clinical Summary [facility] - Emergency Department [address] [place] [address] ED Clinical Summary PERSON INFORMATION Name: ANTONIA NOYOLA Age: 39 Years Sex: FEMALE : 1985 MRN: Acct#: Visit Reason: Abdominal pain; ABD PAIN Arrival: 07/10/2024 21:55:42 Discharge: 07/11/2024 00:52:00 LOS: 000 02:57 Check In: 07/10/2024 21:55:42 Checkout:07/11/2024 00:52:00 Address: [address] [place] [address] [place] [address] PCP: Provider, None PROVIDER INFORMATION Provider Role [...] Hill. Contact your primary care provider or ASSISTED LIVING ADMINISTRATOR for further evaluation and treatment of your condition. Return to ER for any worsening symptoms especially any symptom that concerns you. DIAGNOSIS: Abdominal pain, chronic, right lower quadrant; Other chronic pain Patient Understands: Yes - Patient/family/caregiv er verbalizes understanding of instructions given Comment: [facility] ED Note - Physicianon 2024 ED Note [...] that she had surgery performed by her RESIDENTIAL YOUTH COUNSELOR at [facility], several months ago. Patient reported that she [...] She stated that she had contacted her RESIDENTIAL YOUTH COUNSELOR and was told to come to the [...] 100 % (more content not included)... Normal [facility] ED Note-Nursingon 07-11-2024 ED Note-Nursing This nurse entered room to discharge pt- Pt had self removed IV and left without discharge instructions. Normal [facility] ED Patient Summaryon 025 ED Patient Summary [facility] - Emergency Department [address] [place] [address] PATIENT DISCHARGE INSTRUCTIONS Patient Information Name: ANTONIA NOYOLA Age: 39 Years Date of : 1985 Reason For Visit: Abdominal pain; ABD PAIN Arrival Time: 07/10/2024 21:55:42 Primary Care Physician: Provider, None Attending Physician: Eran Hill MD Comment: Visit Diagnosis: Diagnoses This Visit Abdominal pain (06607614) Abdominal pain, chronic, right lower quadrant (R10.31) Other chronic pain (G89.29) The Pharmacy at [facility] is open Tuesday through Tuesday from [...] alcohol and/or drug addiction problems; contact the [facility] 03/01 Crisis Hotline -Text [id number]. If you received any narcotics, sedation, or [...] Hill. Contact your primary care provider or ASSISTED LIVING ADMINISTRATOR for further evaluation and treatment of your condition. Return to ER for any worsening symptoms especially any symptom that concerns you. Medication Information: The exam and treatment you received today in the [facility] Emergency Department were for an urgent problem and are not intended as complete care. It is important for you to follow up with a doctor, nurse practitioner, or physician?s chef assistant for ongoing care. If your symptoms [...] so we can reach you if necessary. [facility] Emergency Department has provided you with a complete list of medications post discharge. Please inform your health professional/provider of your visit and for further instruction [...] 84 kg Weig (more content not included)... [facility] Progress Note - Nurseon 06-14 Progress Note - Nurse Physician to [facility] to consult with patient now [Electronically Signed on: 07/11/2024 00:26 EST] Celestina Saenz RN [Verified on: 07/11/2024 00:26 EST] Celestina Saenz RN [facility] .Auto Diff 1on 07-10-2024 Auto [place] % 6 % Normal 06-24 [facility] Comment on above: Performed By: #### 1 [id number], [id number], [id number], 3309200, 9326411, 09906708 ####[facility] (DEFAULT)[address] [place] [address] 41544 Baso Abs# 0.0 x10 Normal 0.0-0.2 [facility] Comment on above: Performed By: #### 1 [id number], [id number], [id number], 9036127, 3041163, 01886840 ####[facility] (DEFAULT)[address] [place] [address] 17277 Basophils/100 WBC (Bld) 0.4 % Normal 0.2-2.0 [facility] Comment on above: Performed By: #### 1 [id number], [id number], 3486178688, 9437066, 2782320, 15010661 ####[facility] (DEFAULT)[address] [place] [address] 44734 Eos Abs# 0.0 x10 Normal 0.0-0.4 [facility] Comment on above: Performed By: #### 1 [id number], [id number], 5638967605, 1987424, 0752779, 43451843 ####[facility] (DEFAULT)[address] [place] [address] 72268 Eosinophils/100 WBC (Bld) 0.3 % Low 0.9-4.0 [facility] Comment on above: Performed By: #### 1 [id number], [id number], 0798081474, 3420932, 2480370, 27163856 ####[facility] (DEFAULT)[address] [place] [address] 74513 Lymph Abs# 2.9 x10 Normal 1.3-2.9 [facility] Comment on above: Performed By: #### 1 [id number], 6931429880, 4005798750, 4864913, 2282734, 22766079 ####[facility] (DEFAULT)[address] [place] [address] 15527 Lymphocytes/100 WBC (Bld) 40 % Normal 14-48 [facility] Comment on above: Performed By: #### 1 [id number], 7170743097, 2779947256, 9002721, 4178600, 66150271 ####[facility] (DEFAULT)[address] [place] [address] 86692 [place] Abs# 0.5 x10 Normal 0.0-0.8 [facility] Comment on above: Performed By: #### 1 [id number], [id number], 2785449989, 5303678, 1985750, 91450000 ####[facility] (DEFAULT)[address] [place] [address] 65680 Neut Abs# 3.8 x10 Normal 1.5-9.2 [facility] Comment on above: Performed By: #### 1 [id number], 3989444823, 1422092552, 7553475, 2078857, 20207027 ####[facility] (DEFAULT)[address] [place] [address] 52236 Neutrophils/100 WBC (Bld) 52 % Normal 44-88 [facility] Comment on above: Performed By: #### 1 [id number], 7114505898, 9617484163, 9095091, 2415644, 89828006 ####[facility] (DEFAULT)[address] [place] [address] 05790 Auto [place] % 5 % Normal 1-12 [facility] Comment on above: Performed By: #### 1 [id number], 8588047, 48537968 #### [facility] (DEFAULT) [address] [place] [address] 98280 Baso Abs# 0.1 x10 Normal 0.0-0.2 [facility] Comment on above: Performed By: #### 1 [id number], 2611329, 74607395 #### [facility] (DEFAULT) [address] [place] [address] 08717 Basophils/100 WBC (Bld) 1.4 % Normal 0.2-2.0 [facility] Comment on above: Performed By: #### 1 [id number], 8920250, 76096557 #### [facility] (DEFAULT) [address] [place] [address] 65890 Eos Abs# 0.0 x10 Normal 0.0-0.4 [facility] Comment on above: Performed By: #### 1 [id number], 9427985, 56868859 #### [facility] (DEFAULT) [address] [place] [address] 15460 Eosinophils/100 WBC (Bld) 0.3 % Low 0.9-4.0 [facility] Comment on above: Performed By: #### 1 [id number], 6318196, 07218466 #### [facility] (DEFAULT) [address] [place] [address] Lymph Abs# 1.6 x10 Normal 1.3-2.9 [facility] Comment on above: Performed By: #### 1 [id number], 7913861, 18749805 #### [facility] (DEFAULT) [address] [place] [address] Lymphocytes/100 WBC (Bld) 30 % Normal 14-48 [facility] Comment on above: Performed By: #### 1 [id number], 6698751, 53284356 #### [facility] (DEFAULT) [address] [place] [address] [place] Abs# 0.2 x10 Normal 0.0-0.8 [facility] Comment on above: Performed By: #### 1 [id number], 3653158, 31867479 #### [facility] (DEFAULT) [address] [place] [address] 52054 Neut Abs# 3.3 x10 Normal 1.5-9.2 [facility] Comment on above: Performed By: #### 1 [id number], 3137800, 00036311 #### [facility] (DEFAULT) [address] [place] [address] 31973 Neutrophils/100 WBC (Bld) 63 % Normal 44-88 [facility] Comment on above: Performed By: #### 1 [id number], 4566987, 82563362 #### [facility] (DEFAULT) [address] [place] [address] CBC w/ Auto Diffon 5 Erythrocyte distribution width (RBC) [Ratio] 20.4 % High 11.5-15.0 [facility] Comment on above: Performed By: #### 1 [id number], 8455779707, 5666790204, 9959305, 7806836, 94962112 ####[facility] (DEFAULT)[address] [place] [address] Hematocrit (Bld) [Volume fraction] 35.6 % Normal 33.7-40.4 [facility] Comment on above: Performed By: #### 1 [id number], 5788375481, 2902359554, 9810308, 5286561, 46676052 ####[facility] (DEFAULT)[address] [place] [address] Hemoglobin (Bld) [Mass/Vol] 11.1 g/dL Low 11.3-15.9 [facility] Comment on above: Performed By: #### 1 [id number], 3814872390, 3948553593, 9022647, 9871345, 24660388 ####[facility] (DEFAULT)[address] [place] [address] Man Diff? Auto Invalid Interpretation Code [facility] Comment on above: Performed By: #### 1 [id number], 6836025281, [id number], 6431904, 6935051, 60544891 ####[facility] (DEFAULT)[address] [place] [address] MCH (RBC) [Entitic mass] 23 pg Low 24-34 [facility] Comment on above: Performed By: #### 1 [id number], 8935695869, 8773513374, 4765384, 8239062, 12933356 ####[facility] (DEFAULT)[address] [place] [address] MCHC (RBC) [Mass/Vol] 31 g/dL Normal 26-37 [facility] Comment on above: Performed By: #### 1 [id number], 6709633463, 4126910215, 2194347, 2764647, 72147253 ####[facility] (DEFAULT)[address] [place] [address] MCV (RBC) [Entitic vol] 73 fL Low 81-100 [facility] Comment on above: Performed By: #### 1 [id number], 3786379150, 7910217429, 5195823, 7150897, 06902133 ####[facility] (DEFAULT)[address] [place] [address] 38401 Platelet 499 x10 High 138-427 [facility] Comment on above: Performed By: #### 1 [id number], 1693818276, 1203172203, 2024655, 4511200, 38342384 ####[facility] (DEFAULT)[address] [place] [address] 00914 Platelet mean volume (Bld) [Entitic vol] 8.1 fL Normal 6.3-10.2 [facility] Comment on above: Performed By: #### 1 [id number], 7731503106, 7903433593, 3725353, 2595208, 70715979 ####[facility] (DEFAULT)[address] [place] [address] RBC 4.91 x10 Normal 3.70-5.30 [facility] Comment on above: Performed By: #### 1 [id number], 1791300361, 7734107206, 5709240, 0741677, 70528518 ####[facility] (DEFAULT)[address] [place] [address] WBC 7.2 x10 Normal 3.5-10.5 [facility] Comment on above: Performed By: #### 1 [id number], 2581402237, 2804498979, 8127111, 7780625, 85681497 ####[facility] (DEFAULT)[address] [place] [address] 30166 Erythrocyte distribution width (RBC) [Ratio] 19.9 % High 11.5-15.0 [facility] Comment on above: Performed By: #### 1 [id number], 1866546, 45702855 #### [facility] (DEFAULT) [address] [place] [address] Hematocrit (Bld) [Volume fraction] 34.0 % Normal 33.7-40.4 [facility] Comment on above: Performed By: #### 1 [id number], 2094439, 62300758 #### [facility] (DEFAULT) [address] [place] [address] Hemoglobin (Bld) [Mass/Vol] 10.7 g/dL Low 11.3-15.9 [facility] Comment on above: Performed By: #### 1 [id number], 5234917, 96733950 #### [facility] (DEFAULT) [address] [place] [address] Man Diff? Auto Invalid Interpretation Code [facility] Comment on above: Performed By: #### 1 [id number], 9121995, 16281502 #### [facility] (DEFAULT) [address] [place] [address] MCH (RBC) [Entitic mass] 23 pg Low 24-34 [facility] Comment on above: Performed By: #### 1 [id number], 9590560, [id number] #### [facility] (DEFAULT) [address] [place] [address] MCHC (RBC) [Mass/Vol] 32 g/dL Normal 26-37 [facility] Comment on above: Performed By: #### 1 [id number], [id number], [id number] #### [facility] (DEFAULT) [address] [place] [address] MCV (RBC) [Entitic vol] 72 fL Low 81-100 [facility] Comment on above: Performed By: #### 1 [id number], 7133119, 94848356 #### [facility] (DEFAULT) [address] [place] [address] Platelet 469 x10 High 138-427 [facility] Comment on above: Performed By: #### 1 [id number], 7955733, 45979526 #### [facility] (DEFAULT) [address] [place] [address] Platelet mean volume (Bld) [Entitic vol] 7.7 fL Normal 6.3-10.2 [facility] Comment on above: Performed By: #### 1 [id number], 2263789, 51657573 #### [facility] (DEFAULT) [address] [place], [place] [id number] RBC 4.72 x10 Normal 3.70-5.30 [facility] Comment on above: Performed By: #### 1 [id number], 6313798, 15740597 #### [facility] (DEFAULT) [address] [place] [address] 13314 WBC 5.2 x10 Normal 3.5-10.5 [facility] Comment on above: Performed By: #### 1 [id number], 8628819, 89216367 #### [facility] (DEFAULT) [address] [place] [address] 15482 CMP Standardon 07-10-2024 eGFR Non AA >60 Invalid Interpretation Code [facility] Comment on above: Performed By: #### 1 [id number], 8482511278, 6714310217, 0365530, 3242484, 97225904 ####[facility] (DEFAULT)[address] [place] [address] 66972 eGFR AA >60 Invalid Interpretation Code [facility] Comment on above: Performed By: #### 1 [id number], 2475591833, 2418471842, 4397404, 5000953, 16648416 ####[facility] (DEFAULT)[address] [place] [address] 18482 Albumin [Mass/Vol] 4.4 g/dL Normal 3.5-5.0 [facility] Comment on above: Performed By: #### 1 [id number], 4760390953, 1292064116, 3473024, 7113119, 34724030 ####[facility] (DEFAULT)[address] [place] [address] 19729 Albumin/Globulin [Mass ratio] 1.0 {ratio} Low 1.4-2.6 [facility] Comment on above: Performed By: #### 1 [id number], 1047033686, 8189283580, 7008482, 2467279, 81767286 ####[facility] (DEFAULT)[address] [place] [address] 46657 Alk Phos 64 IU/L Normal 32-91 [facility] Comment on above: Performed By: #### 1 [id number], 5055426528, 6806718781, 5947929, 2500141, 53475245 ####[facility] (DEFAULT)[address] [place] [address] 16141 ALT [Catalytic activity/Vol] 17.0 U/L Normal 14.0-54.0 [facility] Comment on above: Performed By: #### 1 [id number], 5632943677, 0484539273, 6231553, 9295390, 75910244 ####[facility] (DEFAULT)[address] [place] [address] 10045 Anion gap [Moles/Vol] 16.1 mmol/L Normal 5.0-19.0 [facility] Comment on above: Performed By: #### 1 [id number], 1645109983, 3740181070, 3930491, 9410049, 52988914 ####[facility] (DEFAULT)[address] [place] [address] 58217 AST [Catalytic activity/Vol] 22 U/L Normal 15-41 [facility] Comment on above: Performed By: #### 1 [id number], 7711326377, 1451194423, 9392775, 1451045, 40832158 ####[facility] (DEFAULT)[address] [place] [address] 23514 Bili Total 0.7 mg/dL Normal 0.3-1.2 [facility] Comment on above: Performed By: #### 1 [id number], 7328011234, 2650878785, 1785179, 7038950, 51655521 ####[facility] (DEFAULT)[address] [place] [address] 98294 Calcium [Mass/Vol] 9.3 mg/dL Normal 8.9-10.3 [facility] Comment on above: Performed By: #### 1 [id number], 8999633064, 7464520024, 8717973, 4182826, 82854314 ####[facility] (DEFAULT)[address] [place] [address] 51339 Chloride [Moles/Vol] 105 mmol/L Normal 101-111 [facility] Comment on above: Performed By: #### 1 [id number], 7510613726, 4212652053, 5342641, 0243847, 21687799 ####[facility] (DEFAULT)[address] [place] [address] 55409 CO2 [Moles/Vol] 21 mmol/L Normal 21-32 [facility] Comment on above: Performed By: #### 1 [id number], 8362092519, 5687469283, 8065021, 8555361, 29882594 ####[facility] (DEFAULT)[address] [place] [address] 72979 Creatinine [Mass/Vol] 0.90 mg/dL Normal 0.60-1.30 [facility] Comment on above: Performed By: #### 1 [id number], 2452223880, 8205687778, 3527906, 9141859, 77804365 ####[facility] (DEFAULT)[address] [place] [address] 52093 Globulin (S) [Mass/Vol] 4.3 g/dL Normal 1.5-4.3 [facility] Comment on above: Performed By: #### 1 [id number], 4410776783, 3611141035, 0882289, 1318351, 36627305 ####[facility] (DEFAULT)[address] [place] [address] 22016 Glucose [Mass/Vol] 100.0 mg/dL Normal 74.0-118.0 [facility] Comment on above: Performed By: #### 1 [id number], 2531817666, 7595802273, 8460173, 6452426, 54671463 ####[facility] (DEFAULT)[address] [place] [address] 33795 Osmolality 276 mOsm/L Invalid Interpretation Code [facility] Comment on above: Performed By: #### 1 [id number], 0402272065, 4110929916, 9640831, 5434149, 53141208 ####[facility] (DEFAULT)[address] [place] [address] 14784 Potassium [Moles/Vol] 3.1 mmol/L Low 3.6-5.1 [facility] Comment on above: Performed By: #### 1 [id number], 4786919007, 1146240048, 9276645, 1326832, 46972891 ####[facility] (DEFAULT)[address] [place] [address] 01212 Protein [Mass/Vol] 8.7 g/dL High 6.5-8.1 [facility] Comment on above: Performed By: #### 1 [id number], 5200570747, 5743956650, 8299645, 9493737, 06339793 ####[facility] (DEFAULT)[address] [place] [address] 39507 Sodium [Moles/Vol] 139.0 mmol/L Normal 136.0-144.0 [facility] Comment on above: Performed By: #### 1 [id number], 4851559681, 4778215466, 0980120, 9701084, 43184638 ####[facility] (DEFAULT)[address] [place] [address] 73993 Urea nitrogen [Mass/Vol] 8 mg/dL Normal 8-26 [facility] Comment on above: Performed By: #### 1 [id number], 7996626364, 0265603227, 1127329, 2271801, 78126932 ####[facility] (DEFAULT)[address] [place] [address] 99114 Urea nitrogen/Creatinine [Mass ratio] 8.8 mg/mg Normal 4.6-16.2 [facility] Comment on above: Performed By: #### 1 [id number], 1859320249, 8231531151, 9130292, 1290003, 71192123 ####[facility] (DEFAULT)[address] [place] [address] 09477 eGFR Non AA >60 Invalid Interpretation Code [facility] Comment on above: Performed By: #### 1 [id number], 3753985, 85434071 ####[facility] (DEFAULT)[address] [place] [address] 38979 eGFR AA >60 Invalid Interpretation Code [facility] Comment on above: Performed By: #### 1 [id number], 0250149, 92946486 ####[facility] (DEFAULT)[address] [place] [address] 80603 Albumin [Mass/Vol] 4.2 g/dL Normal 3.5-5.0 [facility] Comment on above: Performed By: #### 1 526552613, 6545164, 12608087 ####[facility] (DEFAULT)[address] [place] [address] Albumin/Globulin [Mass ratio] 1.0 {ratio} Low 1.4-2.6 [facility] Comment on above: Performed By: #### 1 [id number], 4732420, 44084979 ####[facility] (DEFAULT)[address] [place] [address] Alk Phos 62 IU/L Normal 32-91 [facility] Comment on above: Performed By: #### 1 [id number], 1420562, 51770801 ####[facility] (DEFAULT)[address] [place] [address] 65718 ALT [Catalytic activity/Vol] 18.0 U/L Normal 14.0-54.0 [facility] Comment on above: Performed By: #### 1 [id number], 6803218, 18161767 ####[facility] (DEFAULT)[address] [place] [address] 85029 Anion gap [Moles/Vol] 13.5 mmol/L Normal 5.0-19.0 [facility] Comment on above: Performed By: #### 1 [id number], 3603609, 16939410 ####[facility] (DEFAULT)[address] [place] [address] 57121 AST [Catalytic activity/Vol] 20 U/L Normal 15-41 [facility] Comment on above: Performed By: #### 1 [id number], 1015788, 54501006 ####[facility] (DEFAULT)[address] [place] [address] 98418 Bili Total 0.7 mg/dL Normal 0.3-1.2 [facility] Comment on above: Performed By: #### 1 [id number], 4460148, 25124743 ####[facility] (DEFAULT)[address] [place] [address] 95455 Calcium [Mass/Vol] 9.2 mg/dL Normal 8.9-10.3 [facility] Comment on above: Performed By: #### 1 [id number], 4629090, 50913339 ####[facility] (DEFAULT)[address] [place] [address] 95292 Chloride [Moles/Vol] 107 mmol/L Normal 101-111 [facility] Comment on above: Performed By: #### 1 [id number], 5423487, 37505420 ####[facility] (DEFAULT)[address] [place] [address] 25630 CO2 [Moles/Vol] 21 mmol/L Normal 21-32 [facility] Comment on above: Performed By: #### 1 536553071, 1043345, 45262877 ####[facility] (DEFAULT)[address] [place] [address] 93226 Creatinine [Mass/Vol] 0.74 mg/dL Normal 0.60-1.30 [facility] Comment on above: Performed By: #### 1 250486638, 1394958, 65815747 ####[facility] (DEFAULT)[address] [place] [address] 36432 Globulin (S) [Mass/Vol] 4.0 g/dL Normal 1.5-4.3 [facility] Comment on above: Performed By: #### 1 [id number], 5841322, 55936466 ####[facility] (DEFAULT)[address] [place] [address] 40903 Glucose [Mass/Vol] 109.0 mg/dL Normal 74.0-118.0 [facility] Comment on above: Performed By: #### 1 [id number], 1149998, 27111491 ####[facility] (DEFAULT)[address] [place] [address] 52128 Osmolality 274 mOsm/L Invalid Interpretation Code [facility] Comment on above: Performed By: #### 1 [id number], 4794473, 91065356 ####[facility] (DEFAULT)[address] [place] [address] 03453 Potassium [Moles/Vol] 3.5 mmol/L Low 3.6-5.1 [facility] Comment on above: Performed By: #### 1 [id number], 3108537, 48597039 ####[facility] (DEFAULT)[address] [place] [address] 30608 Protein [Mass/Vol] 8.2 g/dL High 6.5-8.1 [facility] Comment on above: Performed By: #### 1 597085388, 8969616, 79376672 ####[facility] (DEFAULT)[address] [place] [address] 05009 Sodium [Moles/Vol] 138.0 mmol/L Normal 136.0-144.0 [facility] Comment on above: Performed By: #### 1 196996972, 7691696, 69171378 ####[facility] (DEFAULT)[address] [place] [address] 51585 Urea nitrogen [Mass/Vol] 8 mg/dL Normal 8-26 [facility] Comment on above: Performed By: #### 1 [id number], 8368252, 05100093 ####[facility] (DEFAULT)[address] [place] [address] Urea nitrogen/Creatinine [Mass ratio] 10.8 mg/mg Normal 4.6-16.2 [facility] Comment on above: Performed By: #### 1 [id number], 0743925, 47877192 ####[facility] (DEFAULT)[address] [place] [address] 44937 Extra Blueon 07-10-2024 Tube Collected Yes Invalid Interpretation Code [facility] Comment on above: Performed By: #### 1 [id number], 8327136137, 6599459647, 3164095, 9420989, 95321588 ####[facility] (DEFAULT)[address] [place] [address] 70241 Extra Redon 07-10-2024 Tube Collected Yes Invalid Interpretation Code [facility] Comment on above: Performed By: #### 1 7397789, 4373774, 7458703118, 0313468580, 9990673454 ####[facility] (DEFAULT)[address] [place] [address] Lipaseon 07-10-2024 Lipase Level 50.0 IU/L Normal 22.0-51.0 [facility] Comment on above: Performed By: #### 1 [id number], 7066274218, 3360324165, 6729744, 1649302, 13015606 ####[facility] (DEFAULT)[address] [place] [address] UA Prkaa0kg 07-10-2024 UA Bacteria None [facility] Comment on above: Order Comment: Urina lysis Microscopic order added on by [employer] Expert Rules system. Performed By: #### 1 [id number], 21063762 #### [facility] (DEFAULT) [address] [place] [address] UA RBC 0-2 [facility] Comment on above: Order Comment: Urina lysis Microscopic order added on by [employer] Rules system. Performed By: #### 1 [id number], 67678057 #### [facility] (DEFAULT) [address] [place] [address] UA Squam Epi Few [facility] Comment on above: Order Comment: Urina lysis Microscopic order added on by [employer] Rules system. Performed By: #### 1 [id number], 63095719 #### [facility] (DEFAULT) [address] [place] [address] UA WBC 0-2 [facility] Comment on above: Order Comment: Urina lysis Microscopic order added on by [employer] Rules system. Performed By: #### 1 [id number], 23691019 #### [facility] (DEFAULT) [address] [place] [address] UA w Culture if Ind Standard on 07-10-2024 Breakpoint UA [facility] Comment on above: Performed By: #### 1 [id number], 54149507 #### [facility] (DEFAULT) [address] [place] [address] Color (U) Yellow [facility] Comment on above: Performed By: #### 1 554756985, 96226150 #### [facility] (DEFAULT) [address] [place] [address] Culture? Not Indicated Invalid Interpretation Code [facility] Comment on above: Result Comment: Resu lt created by rule GL_MAGR_ADD_UA_CULT Result created by rule GL_MAGR_ADD_UA_CULT Result created by rule GL_MAGR_ADD_UA_CULT1 Performed By: #### 1 [id number], 08051087 #### [facility] (DEFAULT) [address] [place] [address] 90532 Glucose (U) [Mass/Vol] Negative Normal [facility] Comment on above: Performed By: #### 1 [id number], 18682377 #### [facility] (DEFAULT) [address] [place] [address] 36541 Ketones Ql (U) Negative [facility] Comment on above: Performed By: #### 1 [id number], 45539103 #### [facility] (DEFAULT) [address] [place] [address] 93246 Micro? Indicated Invalid Interpretation Code [facility] Comment on above: Result Comment: Resu lt created by rule GL_MAGR_ADD_UA_MICRO Performed By: #### 1 [id number], 88754930 #### [facility] (DEFAULT) [address] [place] [address] 68496 UA Bilirubin Negative Normal [facility] Comment on above: Performed By: #### 1 [id number], [id number] #### [facility] (DEFAULT) [address] [place] [address] 26985 UA Blood TRACE Abnormal NEGATIVE [facility] Comment on above: Performed By: #### 1 [id number], 92006842 #### [facility] (DEFAULT) [address] [place] [address] 25235 UA Clarity CLEAR Normal CLEAR [facility] Comment on above: Performed By: #### 1 [id number], 79742358 #### [facility] (DEFAULT) [address] [place] [address] 24882 UA Leuk Est Negative Normal NEGATIVE [facility] Comment on above: Performed By: #### 1 [id number], 04468555 #### [facility] (DEFAULT) [address] [place] [address] 13277 UA Nitrite Negative Normal NEGATIVE [facility] Comment on above: Performed By: #### 1 [id number], 97837860 #### [facility] (DEFAULT) [address] [place] [address] 49095 UA pH 6.0 Normal 5-8 [facility] Comment on above: Performed By: #### 1 [id number], 50543558 #### [facility] (DEFAULT) [address] [place] [address] 38095 UA Protein Negative Normal NEGATIVE [facility] Comment on above: Performed By: #### 1 [id number], 81517528 #### [facility] (DEFAULT) [address] [place] [address] UA Spec Grav 1.025 Normal 1.001-1.035 [facility] Comment on above: Performed By: #### 1 [id number], 60904505 #### [facility] (DEFAULT) [address] [place] [address] UA Urobilinogen 0.2 mg/dL Normal 0.2-1.0 [facility] Comment on above: Performed By: #### 1 [id number], 67321194 #### [facility] (DEFAULT) [address] [place] [address] Urine Source Clean Catch Normal [facility] Comment on above: Performed By: #### 1 [id number], 63598855 #### [facility] (DEFAULT) [address] [place] [address] Breakpoint UA Normal [facility] Comment on above: Performed By: #### 1 [id number] ####[facility] (DEFAULT)[address] [place] [address] Color (U) Straw Normal [facility] Comment on above: Performed By: #### 1 [id number] ####[facility] (DEFAULT)[address] [place] [address] Culture? Not Indicated Invalid Interpretation Code [facility] Comment on above: Result Comment: Resu lt created by rule GL_MAGR_ADD_UA_CULT1 Performed By: #### 1 [id number] ####[facility] (DEFAULT)[address] [place] [address] 73991 Glucose (U) [Mass/Vol] 100 mg/dL Normal [facility] Comment on above: Performed By: #### 1 [id number] ####[facility] (DEFAULT)[address] [place] [address] 27841 Ketones Ql (U) Negative Normal [facility] Comment on above: Performed By: #### 1 [id number] ####[facility] (DEFAULT)[address] [place] [address] 21660 Micro? Not Indicated Invalid Interpretation Code [facility] Comment on above: Result Comment: Resu lt created by rule GL_MAGR_ADD_UA_MICRO Performed By: #### 1 [id number] ####[facility] (DEFAULT)[address] [place] [address] 37070 UA Bilirubin Negative Normal [facility] Comment on above: Performed By: #### 1 [id number] ####[facility] (DEFAULT)[address] [place] [address] 44026 UA Blood Negative Normal NEGATIVE [facility] Comment on above: Performed By: #### 1 [id number] ####[facility] (DEFAULT)[address] [place] [address] 70831 UA Clarity CLEAR Normal CLEAR [facility] Comment on above: Performed By: #### 1 [id number] ####[facility] (DEFAULT)[address] [place] [address] 64986 UA Leuk Est Negative Normal NEGATIVE [facility] Comment on above: Performed By: #### 1 [id number] ####[facility] (DEFAULT)[address] [place] [address] 50911 UA Nitrite Negative Normal NEGATIVE [facility] Comment on above: Performed By: #### 1 [id number] ####[facility] (DEFAULT)[address] [place] [address] 31079 UA pH 6.0 Normal 5-8 [facility] Comment on above: Performed By: #### 1 [id number] ####[facility] (DEFAULT)[address] [place] [address] UA Protein Negative Normal NEGATIVE [facility] Comment on above: Performed By: #### 1 [id number] ####[facility] (DEFAULT)[address] [place] [address] UA Spec Grav <=1.005 Normal 1.001-1.035 [facility] Comment on above: Performed By: #### 1 [id number] ####[facility] (DEFAULT)[address] [place] [address] UA Urobilinogen 0.2 mg/dL Normal 0.2-1.0 [facility] Comment on above: Performed By: #### 1 [id number] ####[facility] (DEFAULT)[address] [place] [address] Urine Source Clean Catch Normal [facility] Comment on above: Performed By: #### 1 [id number] ####[facility] (DEFAULT)[address] [place] [address] CBC AND AUTO DIFFon 07-07-19 25 ABSOLUTE BASOPHIL 0.1 X10E9/L Normal 0.0-0.2 [place] Comment on above: Performed By: #### C BCA, CMP, 3040-3, 01109-5, 1987-10, #### [facility] ([id number]) [address] [place] [address] 31607 ABSOLUTE NEUTROPHIL 2.1 X10E9/L Normal 1.5-6.6 [facility] Comment on above: Performed By: #### C BCA, CMP, 3040-3, 80346-9, 1987-10, #### [facility] ([id number]) [address] [place] [address] 55471 Basophils/100 WBC (Bld) 1.3 % Normal [facility] Comment on above: Performed By: #### C BCA, CMP, 3040-3, 06111-5, 1987-10, #### [facility] ([id number]) [address] [place] [address] Eosinophils (Bld) [#/Vol] 0.1 10*3/uL Normal 0.0-0.4 [facility] Comment on above: Performed By: #### C HEATH [facility], 3039-3, , 1987-10, #### [facility] ([id number]) [address] [place] [address] 67845 Eosinophils/100 WBC (Bld) 1.7 % Normal [facility] Comment on above: Performed By: #### C HEATH [facility], 3039-08, , 1987-10, #### [facility] ([id number]) [address] [place] [address] 20399 Erythrocyte distribution width (RBC) [Ratio] 19.6 % High 11.5-15.0 [facility] Comment on above: Performed By: #### C HEATH [facility], 3, , 1987-10, #### [facility] ([id number]) [address] [place] [address] 00792 Hematocrit (Bld) [Volume fraction] 33.8 % Low 35-47 [facility] Comment on above: Performed By: #### Leila JOE [facility], 3039-08, , 1987-10, #### [facility] ([id number]) [address] [place] [address] 49553 Hemoglobin (Bld) [Mass/Vol] 10.7 g/dL Low 11.7-15.5 [facility] Comment on above: Performed By: #### C HEATH [facility], 3039-3, , 1987-10, #### [facility] ([id number]) [address] [place] [address] 92331 Lymphocytes (Bld) [#/Vol] 2.3 10*3/uL Normal 1.0-3.5 [facility] Comment on above: Performed By: #### C BCA, CMP, 0-3, , 1987-10, #### [facility] ([id number]) [address] [place] [id number] Lymphocytes/100 WBC (Bld) 46.5 % Normal [facility] Comment on above: Performed By: #### C BCA, CMP, 3039-3, , 1987-10, #### [facility] ([id number]) [address] [place] [phone] MCH (RBC) [Entitic mass] 22.8 pg Low 27-34 [facility] Comment on above: Performed By: #### C HEATH, CMP, 3039-08, , 1987-10, #### [facility] ([id number]) [address] [place] [address]6903 MCHC (RBC) [Mass/Vol] 31.8 g/dL Low 32-36 [facility] Comment on above: Performed By: #### C HEATH, CMP, 3039-08, , 1987-10, #### [facility] ([id number]) [address] [place] [address] 89668 MCV (RBC) [Entitic vol] 72 fL Low 80-100 [facility] Comment on above: Performed By: #### C BCA, CMP, 3039-3, , 1987-10, #### [facility] ([id number]) [address] [place] [address] 82213 Monocytes (Bld) [#/Vol] 0.4 10*3/uL Normal 0-0.9 [facility] Comment on above: Performed By: #### C BCA, CMP, 3039-, , 1987-10, #### [facility] ([id number]) [address] [place] [address] 70309 Monocytes/100 WBC (Bld) 8.2 % Normal [facility] Comment on above: Performed By: #### C BCA, CMP, 3040-3, 26060-6, 1987-10, #### [facility] ([id number]) [address] [place] [address] 79959 Neutrophils/100 WBC (Bld) 42.3 % Normal [facility] Comment on above: Performed By: #### C BCA, CMP, 0-3, , 1987-10, #### [facility] ([id number]) [address] [place] [address] 62926 Platelet mean volume (Bld) [Entitic vol] 7.4 fL Normal 7-12 [facility] Comment on above: Performed By: #### C BCA, CMP, 3040-3, , 1987-10, #### [facility] ([id number]) [address] [place] [address] 43448 Platelets (Bld) [#/Vol] 480 10*3/uL High 150-450 [facility] Comment on above: Performed By: #### Leila BCA, CMP, 3040-3, , 1987-10, #### [facility] ([id number]) [address] [place] [address] 64031 RBC COUNT 4.70 X10E12/L Normal 3.80-5.20 [facility] Comment on above: Performed By: #### C BCA, CMP, 3040-3, 14665-6, 1987-10, #### [facility] ([id number]) [address] [place] [address] 61762 WBC (Bld) [#/Vol] 4.9 10*3/uL Normal 4.0-11.0 [place] Comment on above: Performed By: #### C BCA, CMP, 3040-3, 17912-7, 1987-10, #### [facility] ([id number]) [address] [place] [address] 01813 COMPREHENSIVE METABOLIC PANE Van 07-07-2024 Albumin [Mass/Vol] 4.1 g/dL Normal 3.2-5.3 [place] Comment on above: Performed By: #### C BCA, CMP, 3040-3, 62120-0, 1987-10, #### [facility] ([id number]) [address] [place] [address] 11943 ALP [Catalytic activity/Vol] 67 U/L Normal 39-130 [facility] Comment on above: Performed By: #### C BCA, CMP, 3040-3, 15557-1, 1987-10, #### [facility] ([id number]) [address] [place] [address] 37152 ALT [Catalytic activity/Vol] 15 U/L Normal 0-31 [facility] Comment on above: Performed By: #### C BCA, CMP, 3040-3, 32018-9, 1987-10, #### [facility] ([id number]) [address] [place] [address] 59254 Anion gap [Moles/Vol] 7 mmol/L Normal 5-15 [facility] Comment on above: Performed By: #### C BCA, CMP, 3040-3, 12664-3, 1987-10, #### [facility] ([id number]) [address] [place] [address] 10746 AST [Catalytic activity/Vol] 19 U/L Normal 0-41 [facility] Comment on above: Performed By: #### C BCA, CMP, 3040-3, 23937-8, 1987-10, #### [facility] ([id number]) [address] [place] [address] 49483 Bilirubin [Mass/Vol] 0.6 mg/dL Normal 0.3-1.2 [facility] Comment on above: Performed By: #### C BCA, CMP, 3040-3, 17803-8, 1987-10, #### [facility] ([id number]) [address] [place] [address] 67000 Calcium [Mass/Vol] 9.1 mg/dL Normal 8.5-10.5 [place] Comment on above: Performed By: #### C BCA, CMP, 3040-3, 19574-9, 1987-10, #### [facility] ([id number]) [address] [place] [address] 23609 Chloride [Moles/Vol] 107 mmol/L Normal 98-109 [facility] Comment on above: Performed By: #### C BCA, CMP, 3040-3, 72307-0, 1987-10, #### [facility] ([id number]) [address] [place] [address] 00322 CO2 [Moles/Vol] 24 mmol/L Normal 22-32 [facility] Comment on above: Performed By: #### C BCA, CMP, 3040-3, 54437-1, 1987-10, #### [facility] ([id number]) [address] [place] [address] 24616 Creatinine [Mass/Vol] 0.88 mg/dL Normal 0.40-1.00 [facility] Comment on above: Result Comment: METH OD TRACEABLE TO IDMS STANDARD Performed By: #### C BCA, CMP, 3040-3, 16560-0, 1987-10, #### [facility] ([id number]) [address] [place] [address] 86287 GFR/1.73 sq M.predicted among non-blacks MDRD (S/P/Bld) [Vol rate/Area] 87 mL/min/{1.73_m2} Normal >59 [facility] Comment on above: Result Comment: Reported eGFR is based on the CKD-EPI 2020 equation that does not use a race coefficient. Performed By: #### C HEATH, CMP, 3040-3, 16505-7, 1987-10, #### [facility] ([id number]) [address] [place] [address] 36113 Glucose [Mass/Vol] 97 mg/dL Normal 65-99 [place] Comment on above: Performed By: #### C HEATH CMP, 3040-3, 14052-6, 1987-10, #### [facility] ([id number]) [address] [place] [address] 93802 Potassium [Moles/Vol] 3.7 mmol/L Normal 3.5-5.0 [facility] Comment on above: Performed By: #### C HEATH, CMP, 3040-3, 20535-8, 1987-10, #### [facility] ([id number]) [address] [place] [address] 57330 Protein [Mass/Vol] 7.6 g/dL Normal 6.0-8.0 [place] Comment on above: Performed By: #### C BCA, CMP, 3040-3, 26233-3, 1987-10, #### [facility] ([id number]) [address] [place] [address] 03232 Sodium [Moles/Vol] 138 mmol/L Normal 134-146 [place] Comment on above: Performed By: #### C BCA, CMP, 3040-3, 36812-2, #### [facility] ([id number]) [address] [place] [address] Urea nitrogen [Mass/Vol] 7 mg/dL Normal 5- [facility] Comment on above: Performed By: #### C BCA, CMP, 3040-3, 57758-6, 1987-10, #### [facility] ([id number]) [address] [place] [address] CRP [Mass/Vol]on 07-07-2024 C REACTIVE PROTEIN 0.5 mg/dL Normal 0.000-0.744 [facility] Comment on above: Performed By: #### C BCA, CMP, 3040-3, 49637-4, #### [facility] ([id number]) [address] [place] [address] CT ABDOMEN AND PELVIS WO CON Ton [...] Randle MD on 07/07/2024 5:58 PM Normal [facility] HCG ( test) Ql (U)o n 07-07-2024 Beta HCG ( test) Ql (U) Negative Normal NEG [facility] Comment on above: Performed By: #### C HEATH, CMP, 3040-3, 91220-4, 1987-10, #### [facility] ([id number]) [address] [place] [address] 74746 LIPASEon 07-07-2024 Lipase [Catalytic activity/Vol] 35 U/L Normal 17-40 [facility] Comment on above: Performed By: #### C HEATH, CMP, 3040-3, 12373-9, 1987-10, #### [facility] ([id number]) [address] [place] [address] 96518 Lactate (P arely) [Moles/Vol]o n 07-07-2024 LACTATE W/REFLEX 1.5 mmol/L Normal 0.4-2.[address] [facility] Comment on above: Result Comment: Result did not trigger repeat Lactate, re-order if needed. Performed By: #### C HEATH, CMP, 3039-3, , 1987-10, #### [facility] ([id number]) [address] [place] [address] 45803 URN MACROSCOPIC NURon 2024 BILIRUBIN AUDREY Negative Normal [facility] Comment on above: Performed By: #### C HEATH, CMP, 3039-3, , 1987-10, #### [facility] ([id number]) [address] [place] [address] 61881 BLOOD/HGB AUDREY Small Abnormal NEG [facility] Comment on above: Performed By: #### C BCA, CMP, 3040-3, 30259-1, 1987-10, #### [facility] ([id number]) [address] [place] [address] [place] [address] GLUCOSE AUDREY Negative Normal NEG [facility] Comment on above: Performed By: #### C BCA, CMP, 3040-3, , 1987-10, #### [facility] ([id number]) [address] [place] [address] 69216 KETONES AUDREY Negative Normal NEG [facility] Comment on above: Performed By: #### C BCA, CMP, 3040-3, 80401-7, 1987-10, #### [facility] ([id number]) [address] [place] [address] 97983 LEUKOCYTE ESTERASE AUDREY Trace Abnormal NEG [facility] Comment on above: Performed By: #### C BCA, CMP, 0-3, , 1987-10, #### [facility] ([id number]) [address] [place] [address] 34329 NITRITE AUDREY Negative Normal NEG [facility] Comment on above: Performed By: #### C BCA, CMP, 3040-3, 17428-8, 1987-10, #### [facility] ([id number]) [address] [place] [address] 50166 PH AUDREY 7.0 Normal 5.0-8.5 [facility] Comment on above: Performed By: #### C BCA, CMP, 3040-3, , 1987-10, #### [facility] ([id number]) [address] [place] [address] 69932 PROTEIN AUDREY Negative Normal NEG [facility] Comment on above: Performed By: #### C BCA, CMP, 3040-3, 77121-4, 1987-10, #### [facility] ([id number]) [address] [place] [address] 80320 SPECIFIC GRAVITY AUDREY 1.010 Normal 1.003-1.035 [facility] Comment on above: Performed By: #### C BCA, CMP, 3040-3, 52913-7, 1987-10, #### [facility] ([id number]) [address] [facility], [place] [address] UROBILINOGEN AUDREY 0.2 eu/dL Normal <1.1 [facility] Comment on above: Performed By: #### C BCA, CMP, 3040-3, 34507-3, 1987-10, #### [facility] ([id number]) [address] [facility], [place] [address] ED Clinical Summaryon 2024 ED Clinical Summary ED Clinical Summary [address] [address] ED Clinical Summary Person Information [facility] Age: 39 Years : 1985 Sex: Female Language: Danish PCP: NONE, XXXX Marital Status: Visit Id: [...] 01:38:52 06/28/2024 01:38:52 06/28/2024 01:38:52 ADDRESS: [address] [place] [id number] [facility] DOC NOTES: MEDICAL INFORMATION: Prescriptions Given: Medications to Continue with No Changes Other Medications acetaminophen-oxycodon e (Percocet 5 mg-325 mg oral tablet) 1 Tablets By Mouth every 8 hours for 3 Days. Refills: 0. diflunisal (diflunisal 500 mg Tab) 1 Tablets By Mouth every 12 hours. Refills: 0. PATIENT EDUCATION INFORMATION: Instructions: Abdominal Pain, Adult, Cusc-jc-Mlth Follow up: With: Address: When: [facility] [place]AR[place]ott [address] Business (1) In 3 days 07/01/2024 Comments: Please follow-up with your primary care doctor and ASSISTED LIVING ADMINISTRATOR for further evaluation and management. Return to the ED for any new or worsening symptoms. With: Address: When: XXXX NONE , [place] In 3 days DIAGNOSIS: Abdominal pain; Nausea Normal [facility] ED Note-Physicianon 06-28-19 ED Note-Physician ED [...] rebound syndrome and follows with OB in [place]. Review of Systems A 10 point review [...] when reviewing her OARRS. I did review [facility] patient was seen at both [place] and [place] today. Discussed with the patient she states [...] prescription medications Follow-up With When Contact Information [employer] In 3 days 07/01/[address] [place] [phone]- Business (1) Additional Instructions: Please follow-up with your primary care doctor and ASSISTED LIVING ADMINISTRATOR for further evaluation and management. Return to the ED for any new or worsening symptoms. XXXX NONE In 3 days [place] Additional Instructions: Patient Education Abdominal Pain, Adult, Wapr-we-Uqkd Problem List/Past (more content not included)... Normal [facility] Comment on above: Result Comment: Elec tronically Signed By: Jordyn Willett DO\.br\Date and Time Signed: 06/28/24 03:41 EST ED Patient Summaryon 025 ED Patient Summary ED Patient Summary [address] [address] Patient Discharge Instructions Person Information Name: ANTONIA NOYOLA Age: 39 Years Arrival Date: 06/27/2024 21:46:23 Discharge Diagnosis: Abdominal pain; Nausea Primary Care Physician: NONE, XXXX Provider Information Primary Provider: Jordyn Willett DO Advanced Admitting Office Escort:None The exam and treatment you received in the Emergency Department were for an urgent problem and are not intended as complete care. It is important that you follow up with a doctor, nurse practitioner, or physician???s chef assistant for ongoing care. If your symptoms become worse or you do not improve as expected and you are unable to reach your usual health care provider, you should return to the Emergency Department. We are available 24 hours a day. ANTONIA NOYOLA has been given the following list of patient education materials, prescriptions and follow-up instructions: Follow-up Instructions: With: Address: When: [employer] [address] [place] [id number] Business (1) In 3 days 07/01/2024 Comments: Please follow-up with your primary care doctor and ASSISTED LIVING ADMINISTRATOR for further evaluation and management. Return to the ED for any new or worsening symptoms. With: Address: When: XXXX [facility] , [place] In 3 days In the event that this physician does not participate in your insurance network, please consult with your insurance company to find a nearby participating provider. Patient Education Materials: Abdominal Pain, Adult, Qwcy-cg-Qlyl A MESSAGE TO ALL PATIENTS REGARDING OPIOIDS PRESCRIPTION OPIOIDS: WHAT YOU NEED TO KNOW Prescription opioids can be used to help relieve nrwtheyp-jr-lzrrvq pain and are often prescribed following a [...] Administration (www.fda.gov/Boris (more content not included)... Normal [facility] BMPon 06-27-2024 Anion gap [Moles/Vol] 14 mmol/L Normal -16 [facility] Comment on above: Performed By: #### 2 [id number] #### [facility] [address] [place] [address] Calcium [Mass/Vol] 10.3 mg/dL Normal 8.9-11.1 [facility] Comment on above: Performed By: #### 2 239034 #### [facility] [address] [place] [address] Chloride [Moles/Vol] 106 mmol/L Normal 101-[address] [facility] Comment on above: Performed By: #### 2 196466 #### [facility] [address] [place] [address] CO2 [Moles/Vol] 23 mmol/L Normal 21-31 [facility] Comment on above: Performed By: #### 2 852919 #### [facility] [address] [place] [address] Creatinine [Mass/Vol] 0.9 mg/dL Normal 0.5-1.3 [facility] Comment on above: Performed By: #### 2 668292 #### [facility] [address] [place] [address] Glucose [Mass/Vol] 108 mg/dL Normal 55-199 [facility] Comment on above: Performed By: #### 2 657533 #### [facility] [address] [place] [address] Potassium [Moles/Vol] 3.9 mmol/L Normal 3.5-5.3 [facility] Comment on above: Performed By: #### 2 582365 #### [facility] [address] [place] [address] Sodium [Moles/Vol] 139 mmol/L Normal 135-145 [facility] Comment on above: Performed By: #### 2 752500 #### [facility] [address] [place] [address] Urea nitrogen [Mass/Vol] 7 mg/dL Normal 5-21 [facility] Comment on above: Performed By: #### 2 445731 #### [facility] [address] [place] [address] Urea nitrogen/Creatinine [Mass ratio] 8 No Units Low 10-20 [facility] Comment on above: Performed By: #### 2 764827 #### [facility] [address] [place] [address] CBC w/ Auto Diffon 5 Basophils/100 WBC (Bld) 1.1 % Normal 0.0-2.0 [facility] Comment on above: Performed By: #### 2 382739 #### [facility] [address] [place] [address] Basophils/Leukocytes Auto (Bld) [Pure # fraction] 0.1 E9/L Normal 0.0-0.2 [facility] Comment on above: Performed By: #### 2 435912 #### [facility] [address] [place] [address] Eosinophils (Bld) [#/Vol] 0.0 E9/L Normal 0.0-0.5 [facility] Comment on above: Performed By: #### 2 339207 #### [facility] [address] [place] [address] Eosinophils/100 WBC (Bld) 0.2 % Normal 0.0-8.0 [facility] Comment on above: Performed By: #### 2 837575 #### [facility] [address] [place] [address] Erythrocyte distribution width (RBC) [Ratio] 19.8 % High 10.9-14.2 [facility] Comment on above: Performed By: #### 2 303930 #### [facility] [address] [place] [address] Hematocrit (Bld) [Volume fraction] 37.8 % Normal 34.0-46.0 [facility] Comment on above: Performed By: #### 2 062514 #### [facility] [address] [place] [address] Hemoglobin (Bld) [Mass/Vol] 12.0 g/dL Normal 12.0-16.0 [facility] Comment on above: Performed By: #### 2 515349 #### [facility] [address] [place] [address] Hypochromia Auto Ql (Bld) PRESENT Invalid Interpretation Code [facility] Comment on above: Performed By: #### 2 024642 #### [facility] [address] [place] [address] Lymphocytes (Bld) [#/Vol] 1.7 E9/L Normal 1.0-4.0 [facility] Comment on above: Performed By: #### 2 518007 #### [facility] [address] [place] [address] Lymphocytes/100 WBC (Bld) 23.6 % Normal 14.0-50.0 [facility] Comment on above: Performed By: #### 2 166309 #### [facility] [address] [place] [address] MCH (RBC) [Entitic mass] 22.8 pg Low 27.0-34.0 [facility] Comment on above: Performed By: #### 2 143493 #### [facility] [address] [place] [address] MCHC (RBC) [Mass/Vol] 31.8 g/dL Normal 31.4-36.0 [facility] Comment on above: Performed By: #### 2 559330 #### [facility] [address] [place] [address] MCV (RBC) [Entitic vol] 71.7 fL Low 80.0-100.0 [facility] Comment on above: Performed By: #### 2 747636 #### [facility] [address] [place] [address] Microcytes Ql (Bld) PRESENT Invalid Interpretation Code [facility] Comment on above: Performed By: #### 2 177221 #### [facility] [address] [place] [address] Monocytes (Bld) [#/Vol] 0.3 E9/L Normal 0.2-1.0 [facility] Comment on above: Performed By: #### 2 485506 #### [facility] [address] [place] [address] Neutrophils (Bld) [#/Vol] 5.0 E9/L Normal 2.0-7.5 [facility] Comment on above: Performed By: #### 2 170263 #### [facility] [address] [place] [address] Neutrophils/100 WBC (Bld) 71.3 % Normal 36.0-75.0 [facility] Comment on above: Performed By: #### 2 298694 #### [facility] [address] [place] [address] Platelet 552.0 E9/L High 150.0-500.0 [facility] Comment on above: Performed By: #### 2 340702 #### [facility] [address] [place] [address] Platelet mean volume (Bld) [Entitic vol] 7.5 fL Normal 6.4-10.8 [facility] Comment on above: Performed By: #### 2 597785 #### [facility] [address] [place] [address] RBC (Bld) [#/Vol] 5.3 E12/L Normal 4.3-5.9 [facility] Comment on above: Performed By: #### 2 334346 #### [facility] [address] [place] [address] RBC size Nom (Bld) SEE MORPHOLOGY Invalid Interpretation Code [facility] Comment on above: Performed By: #### 2 147689 #### [facility] [address] [place] [address] WBC corrected for nucl RBC Auto (Bld) [#/Vol] 7.0 E9/L Normal 4.0-11.0 [facility] Comment on above: Performed By: #### 2 620528 #### [facility] [address] [place] [address] CBC with Diffon 06-27-2024 Basophils (Bld) [#/Vol] 0.09 10*3/uL [facility] Basophils/100 WBC (Bld) 1 % 0 - 2 % [facility] Eosinophils (Bld) [#/Vol] 0.06 10*3/uL [facility] Eosinophils/100 WBC (Bld) 1 % 1 - 4 % [facility] Erythrocyte distribution width (RBC) [Ratio] 17.9 % High 11.8 - 14.4 % [facility] Hematocrit (Bld) [Volume fraction] 35.1 % Low 36.3 - 47.1 % [facility] Hemoglobin (Bld) [Mass/Vol] 10.6 g/dL Low 11.9 - 15.1 g/dL [facility] Immature granulocytes (Bld) [#/Vol] [facility] Immature granulocytes/100 WBC (Bld) 0 % 0 [facility] Interpretation and review of laboratory results Abnormal [facility] Lymphocytes/100 WBC (Bld) 50 % High 24 - 43 % [facility] Lymphocytes/100 WBC (Bld) 3.25 % [facility] MCH (RBC) [Entitic mass] 22.3 pg Low 25.2 - 33.5 pg [facility] MCHC (RBC) [Mass/Vol] 30.2 g/dL 28.4 - 34.8 g/dL [facility] MCV (RBC) [Entitic vol] 73.9 fL Low 82.6 - 102.9 fL [facility] Monocytes/100 WBC (Bld) 7 % 3 - 12 % [facility] Monocytes/100 WBC (Bld) 0.48 % [facility] Neutrophils/100 WBC (Bld) 41 % 36 - 65 % [facility] Nucleated RBC/100 WBC (Bld) [Ratio] 0.0 % 0.0 per 100 WBC [facility] Platelet mean volume (Bld) [Entitic vol] 9.3 fL 8.1 - 13.5 fL [facility] Platelets (Bld) [#/Vol] 533 10*3/uL High [facility] RBC (Bld) [#/Vol] 4.75 10*6/uL 3.95 - 5.1 1 m/uL [facility] Segmented neutrophils/100 WBC (Bld) 2.65 % [facility] WBC other (Bld) [#/Vol] 6.5 B on [facility] Abs. Basophil 0.09 k/uL Normal 0.00-0.20 [facility] Comment on above: Performed By: #### C DP, CP, LIP #### [facility] [address] [place] [address] Geophysical Data Technician: Jennifer Freire MD Abs.Imm.Granulocyte <0.03 Normal 0.00-0.30 [facility] Comment on above: Performed By: #### C DP, CP, LIP #### [address] [place] [id number] Geophysical Data Technician: Jennifer Freire MD Abs.Neutrophil (Seg) 2.65 k/uL Normal 1.50-8.10 [facility] Comment on above: Performed By: #### C DP, CP, LIP #### [address] [place] [address] Geophysical Data Technician: Jennifer Freire MD Basophils/100 WBC (Bld) 1 % Normal 0-2 [facility] Comment on above: Performed By: #### C DP, CP, LIP #### [address] [place] [address] Geophysical Data Technician: Jennifer Freire MD Eosinophils (Bld) [#/Vol] 0.06 10*3/uL Normal 0.00-0.44 [facility] Comment on above: Performed By: #### C DP, CP, LIP #### [address] [place] [id number] Geophysical Data Technician: Jennifer Freire MD Eosinophils/100 WBC (Bld) 1 % Normal 1-4 [facility] Comment on above: Performed By: #### C DP, CP, LIP #### [address] [place] [address] Geophysical Data Technician: Jennifer Freire MD Erythrocyte distribution width (RBC) [Ratio] 17.9 % High 11.8-14.4 [facility] Comment on above: Performed By: #### C DP, CP, LIP #### [address] [place], [place] [address] Geophysical Data Technician: Jennifer Freire MD Hematocrit (Bld) [Volume fraction] 35.1 % Low 36.3-47.1 [facility] Comment on above: Performed By: #### C DP, CP, LIP #### [address] [place] [address] Geophysical Data Technician: Jennifer Freire MD Hemoglobin (Bld) [Mass/Vol] 10.6 g/dL Low 11.9-15.1 [facility] Comment on above: Performed By: #### C DP, CP, LIP #### [address] [place] [address] Geophysical Data Technician: Jennifer Freire MD Immature granulocytes/100 WBC (Bld) 0 % Normal 0 [facility] [facility] Comment on above: Performed By: #### C DP, CP, LIP #### [address] [place], [place] [address] Geophysical Data Technician: Jennifer Freire MD Lymphocytes (Bld) [#/Vol] 3.25 10*3/uL Normal 1.10-3.70 [facility] Comment on above: Performed By: #### C DP, CP, LIP #### [address] [place], [place] [id number] Geophysical Data Technician: Jennifer Freire MD Lymphocytes/100 WBC (Bld) 50 % High 24-43 [facility] Comment on above: Performed By: #### C DP, CP, LIP #### [address] [place], [facility]83 Geophysical Data Technician: Jennifer Freire MD MCH (RBC) [Entitic mass] 22.3 pg Low 25.2-33.5 [facility] Comment on above: Performed By: #### C DP, CP, LIP #### [address] [place], [place] [address] Geophysical Data Technician: Jennifer Freire MD MCHC (RBC) [Mass/Vol] 30.2 g/dL Normal 28.4-34.8 [facility] Comment on above: Performed By: #### C DP, CP, LIP #### [address] [place] [address] Geophysical Data Technician: Jennifer Freire MD MCV (RBC) [Entitic vol] 73.9 fL Low 82.6-102.9 [facility] Comment on above: Performed By: #### C DP, CP, LIP #### [address] [place], [facility]47 ( Geophysical Data Technician: Jennifer Freire MD Monocytes (Bld) [#/Vol] 0.48 10*3/uL Normal 0.10-1.20 [facility] Comment on above: Performed By: #### C DP, CP, LIP #### [address] [place], [facility]83 Geophysical Data Technician: Jennifer Freire MD Monocytes/100 WBC (Bld) 7 % Normal 3-12 [facility] Comment on above: Performed By: #### C DP, CP, LIP #### [address] [place], [facility]83 Geophysical Data Technician: Jennifer Freire MD Neutrophil (Seg) 41 % Normal 36-65 [facility] Comment on above: Performed By: #### C DP, CP, LIP #### [address] [place], [place] [id number] Geophysical Data Technician: Jennifer Freire MD NRBC Automated 0.0 per 100 WBC Normal 0.0 [facility] Comment on above: Performed By: #### C DP, CP, LIP #### [address] [place], [place] [id number] Geophysical Data Technician: Jennifer Freire MD Platelet mean volume (Bld) [Entitic vol] 9.3 fL Normal 8.1-13.5 [facility] Comment on above: Performed By: #### C DP, CP, LIP #### [address] [place], [place] [id number] Geophysical Data Technician: Jennifer Freire MD Platelets (Bld) [#/Vol] 533 10*3/uL High 138-453 [facility] Comment on above: Performed By: #### C DP CP, LIP #### [address] [place], [place] [id number] Geophysical Data Technician: Jennifer Freire MD RBC (Bld) [#/Vol] 4.75 10*6/uL Normal 3.95-5.11 [facility] Comment on above: Performed By: #### C DP, CP, LIP #### [address] [place], [place] [id number] Geophysical Data Technician: Jennifer Freire MD WBC (Bld) [#/Vol] 6.5 10*3/uL Normal 3.5-11.3 [facility] Comment on above: Performed By: #### C DP CP, LIP #### [address] [place] [address] Geophysical Data Technician: Jennifer Freire MD CHEMISTRYOrdered By: SYSTEM SYSTEM [...] [Mass/Vol] 4.2 g/dL 3.5 - 5.2 g/dL [facility] Albumin/Globulin [Mass ratio] 1.3 {ratio} 1.0 - 2.5 [facility] ALP [Catalytic activity/Vol] 77 U/L 35 - 104 U/L [facility] ALT [Catalytic activity/Vol] 19 U/L 10 - 35 U/L [facility] Anion gap [Moles/Vol] 11 mmol/L 9 - 16 mmol/L [facility] AST [Catalytic activity/Vol] 24 U/L 10 - 35 U/L [facility] Bilirubin [Mass/Vol] mg/dL 0.00 - 1.20 mg/dL [facility] Calcium [Mass/Vol] 9.4 mg/dL 8.6 - 10. 4 mg/dL [facility] Chloride [Moles/Vol] 105 mmol/L 98 - 10 7 mmol/L [facility] CO2 [Moles/Vol] 24 mmol/L 20 - 31 mmol/L [facility] Creatinine [Mass/Vol] 0.7 mg/dL 0.50 - 0.90 mg/dL [facility] Christen Manrique Rate - PINF [facility] Comment on above: These results are not [...] [Mass/Vol] 79 mg/dL 74 - 99 mg/dL [facility] Potassium [Moles/Vol] 3.7 mmol/L 3.7 - 5.3 mmol/L [facility] Comment on above: Specimen hemolysis h as exceeded the interference as defined by Ji. Value may be falsely increased. Suggest recollection if clinically indicated. Protein [Mass/Vol] 7.4 g/dL 6.6 - 8.7 g/dL [facility] Sodium [Moles/Vol] 140 mmol/L 136 - 145 mmol/L [facility] Urea nitrogen [Mass/Vol] 8 mg/dL 6 - 20 mg/dL [facility] Urea nitrogen/Creatinine [Mass ratio] 11 mg/mg 9 - 20 [facility] Comp Metabolic Profon 2024 Albumin [Mass/Vol] 4.2 g/dL Normal 3.5-5.2 [facility] Comment on above: Performed By: #### C DP, CP, LIP #### [facility] [address] [place] [address] Geophysical Data Technician: Jennifer Freire MD Albumin/Glob Ratio 1.3 Normal 1.0-2.5 [facility] Comment on above: Performed By: #### C DP, CP, LIP #### [facility] [address] [place], [place] [id number] Geophysical Data Technician: Jennifer Freire MD Alkaline Phos 77 U/L Normal 35-104 [facility] Comment on above: Performed By: #### C DP, CP, LIP #### [facility] [address] [place], [place] [id number] Geophysical Data Technician: Jennifer Freire MD ALT [Catalytic activity/Vol] 19 U/L Normal 10-35 [facility] Comment on above: Performed By: #### C DP, CP, LIP #### [facility] [address] [place] [address] Geophysical Data Technician: Jennifer Freire MD Anion gap [Moles/Vol] 11 mmol/L Normal 9-16 [facility] Comment on above: Performed By: #### C DP, CP, LIP #### [facility] [address] [place] [address] Geophysical Data Technician: Jennifer Freire MD AST [Catalytic activity/Vol] 24 U/L Normal 10-35 [facility] Comment on above: Performed By: #### C DP, CP, LIP #### [facility] [address] [place], [place] [id number] Geophysical Data Technician: Jennifer Freire MD Bilirubin [Mass/Vol] mg/dL Normal 0.00-1.20 [facility] Comment on above: Performed By: #### C DP, CP, LIP #### [facility] [address] [place], [place] [id number] Geophysical Data Technician: Jennifer Freire MD BUN/CRE Ratio 11 Normal 9-20 [facility] Comment on above: Performed By: #### C DP, CP, LIP #### [facility] [address] [place], [place] [phone] Geophysical Data Technician: Jennifer Freire MD Calcium [Mass/Vol] 9.4 mg/dL Normal 8.6-10.4 [facility] Comment on above: Performed By: #### C DP, CP, LIP #### [facility] [address] [place] [address] Dr. [place]ierrez, [place] [id number] Geophysical Data Technician: Jennifer Freire MD Chloride [Moles/Vol] 105 mmol/L Normal 98-107 [facility] Comment on above: Performed By: #### C DP, CP, LIP #### [facility] [address] [place] [address] Dr. [place]ierrez, [place] [id number] Geophysical Data Technician: Jennifer Freire MD CO2 [Moles/Vol] 24 mmol/L Normal 20-31 [facility] Comment on above: Performed By: #### C DP, CP, LIP #### [facility] [address] [place] [address] Geophysical Data Technician: Jennifer Freire MD Creatinine [Mass/Vol] 0.7 mg/dL Normal 0.50-0.90 [facility] Comment on above: Performed By: #### C DP, CP, LIP #### [facility] [address] [place] [address] Geophysical Data Technician: Jennifer Freire MD GFR/1.73 sq M.predicted among non-blacks MDRD (S/P/Bld) [Vol rate/Area] mL/min/{1.73_m2} Normal >60 [facility] Comment on above: Result Comment: These [...] By: #### C CANDICE PINTO, LIP #### [address] [place] [address] Geophysical Data Technician: Jennifer Freire MD Glucose [Mass/Vol] 79 mg/dL Normal 74-99 [facility] Comment on above: Performed By: #### C MILLIE CP, LIP #### [facility] [address] [place] [address] [place] [address] Geophysical Data Technician: Jennifer Freire MD Potassium [Moles/Vol] 3.7 mmol/L Normal 3.7-5.3 [facility] Comment on above: Result Comment: Spec imen hemolysis has exceeded the interference as defined by Ji. Value may be falsely increased. Suggest recollection if clinically indicated. Performed By: #### C CANDICE PINTO, LIP #### [facility] [address] [place] [address] [place] [address] Geophysical Data Technician: Jennifer Freire MD Protein [Mass/Vol] 7.4 g/dL Normal 6.6-8.7 [facility] Comment on above: Performed By: #### C MILLIE CP, LIP #### [address] [place] [address] Geophysical Data Technician: Jennifer Freire MD Sodium [Moles/Vol] 140 mmol/L Normal 136-145 [facility] Comment on above: Performed By: #### C DP, CP, LIP #### [facility] [address] [place] [address] Geophysical Data Technician: Jennifer Freire MD Urea nitrogen [Mass/Vol] 8 mg/dL Normal 6-20 [facility] Comment on above: Performed By: #### C DP, CP, LIP #### [facility] [address] [place] [address] Geophysical Data Technician: Jennifer Freire MD Extra Blueon 06-27-2024 Tube Collected Plasma Yes Invalid Interpretation Code [facility] Comment on above: Performed By: #### 1 [id number] #### [facility] [address] [place] [address] HEMATOLOGYOrdered By: SYSTEM SYSTEM on 06-27-2024 Basophils/100 [...] 06-27-2024 Albumin [Mass/Vol] 5.0 g/dL Normal 3.3-5.0 [facility] Comment on above: Performed By: #### 2 [id number] #### [facility] [address] [place] [address] Albumin/Globulin (S) [Mass conc ratio] 1.4 Normal 1.1-2.2 [facility] Comment on above: Performed By: #### 2 [id number] #### [facility] [address] [place] [address] ALP [Catalytic activity/Vol] 80 Int._Unit/L Normal 21-98 [facility] Comment on above: Performed By: #### 2 [id number] #### [facility] [address] [place] [address] ALT No additional P-5'-P [Catalytic activity/Vol] 15 Int._Unit/L Normal 6-46 [facility] Comment on above: Performed By: #### 2 [id number] #### [facility] [address] [place] [address] AST [Catalytic activity/Vol] 18 Int._Unit/L Normal 5-43 [facility] Comment on above: Performed By: #### 2 [id number] #### [facility] [address] [place] [address] Bilirubin [Mass/Vol] 0.6 mg/dL Normal 0.0-1.1 [facility] Comment on above: Performed By: #### 2 [id number] #### [facility] [address] [place] [address] Bilirubin.direct [Mass/Vol] 0.0 mg/dL Normal 0.0-0.4 [facility] Comment on above: Performed By: #### 2 [id number] #### [facility] [address] [place] [address] Bilirubin.indirect [Mass or moles/Vol] 0.6 mg/dL Normal 0.1-0.9 [facility] Comment on above: Performed By: #### 2 [id number] #### [facility] [address] [place] [address] Globulin (S) [Mass/Vol] 3.6 g/dL Normal 1.4-4.0 [facility] Comment on above: Performed By: #### 2 [id number] #### [facility] [address] [place] [address] Protein [Mass/Vol] 8.6 g/dL High 6.0-7.8 [facility] Comment on above: Performed By: #### 2 [id number] #### [facility] [address] [place] [address] Lactic Acidon 06-27-2024 Lactate (BldV) [Moles/Vol] 1.7 mmol/L 0.5 - 2.2 mmol/L [facility] Lactate [Moles/Vol] 1.7 mmol/L Normal 0.5-2.2 [facility] Comment on above: Performed By: #### L ACTIC #### [facility] [address] [place] [address] Geophysical Data Technician: Jennifer Freire MD Lipaseon 06-27-2024 Lipase [Catalytic activity/Vol] 55 U/L 13 - 60 U/L [facility] Lipase [Catalytic activity/Vol] 55 U/L Normal 13-60 [facility] Comment on above: Performed By: #### C DP, CP, LIP #### [facility] [address] [place] [address] Geophysical Data Technician: Jennifer Freire MD Lipase Levelon 06-27-2024 Lipase [Catalytic activity/Vol] 24 U/L Normal 13-58 [facility] Comment on above: Performed By: #### 2 [id number] #### [facility] [address] [place] [address] Microscopic Urinalysison Bacteria LM Ql (Urine sed) 2+ Abnormal None [facility] Character (U) MICROSCOPIC PERFORME D ON UNSPUN URINE Abnormal NOT REQ. [facility] Character (U) Quantity not sufficient. Abnormal NOT REQ. [facility] Epithelial cells LM.HPF (Urine sed) [#/Area] 2 TO 5 [facility] Interpretation and review of laboratory results Abnormal [facility] Mucus Ql (Urine sed) 2+ Abnormal None [facility] RBC LM.HPF (Urine sed) [#/Area] 0 TO 2 [facility] WBC LM.HPF (Urine sed) [#/Area] 0 TO 2 [facility] No Panel Informationon 06-27 Bon [facility] UA w/Reflex Cultureon 2024 Bilirubin, SemiQt,Ur Negative Normal NEG [facility] Comment on above: Performed By: #### U MICAO, UAX #### [facility] [address] [place], [place] [id number] Geophysical Data Technician: Jennifer Freire MD Blood, Urine Negative Normal NEG [facility] Comment on above: Performed By: #### U MICAO, UAX #### [facility] [address] [place], [place] 8230183 Geophysical Data Technician: Jennifer Freire MD Clarity (U) Clear Normal CLEAR [facility] Comment on above: Performed By: #### U MICAO, UAX #### [facility] [address] [place], [place] 4004783 Geophysical Data Technician: Jennifer Freire MD Color (U) Yellow Normal YEL [facility] Comment on above: Performed By: #### U MICAO, UAX #### [facility] [address] [place] [address] Geophysical Data Technician: Jennifer Freire MD Glucose Ql (U) Negative Normal NEG [facility] Comment on above: Performed By: #### U MICAO, UAX #### [facility] [address] [place] [address] Geophysical Data Technician: Jennifer Freire MD Ketones Ql (U) Negative Normal NEG [facility] Comment on above: Performed By: #### U MICAO, UAX #### [facility] [address] [place], [place] [id number] Geophysical Data Technician: Jennifer Freire MD Leukocyte esterase Test strip Ql (U) TRACE Abnormal NEG [facility] Comment on above: Performed By: #### U MICAO, UAX #### [facility] [address] [place] [address] Geophysical Data Technician: Jennifer Freire MD Nitrite,Ur Negative Normal NEG [facility] Comment on above: Performed By: #### U MICAO, UAX #### [facility] [address] [place] [address] [place], [place] 1979[address] Geophysical Data Technician: Jennifer Freire MD PH,Ur 6.0 Normal 5.0-9.0 [facility] Comment on above: Performed By: #### U MICAO, UAX #### [facility] [address] [place] [address] [place] [id number] Geophysical Data Technician: Jennifer Freire MD Protein Ql (U) Negative Normal NEG [facility] Comment on above: Performed By: #### U MICAO, UAX #### [address] [place] [id number] Geophysical Data Technician: Jennifer Freire MD Spec. [place],Ur >1.030 High 1.010-1.020 [facility] Comment on above: Performed By: #### U MICAO, UAX #### [address] [place] [id number] Geophysical Data Technician: Jennifer Freire MD Urobilinogen,Ur Normal Normal 0.0-1.0 [facility] Comment on above: Performed By: #### U ARABELLAO, UAX #### [address] [place], [facility]83 Geophysical Data Technician: Jennifer Freire MD Urinalysis with Reflex to Cu ltureon 06-27-2024 Bilirubin Ql (U) Negative NEGATIVE [facility] Clarity (U) Clear Clear [facility] Color (U) Yellow Yellow [facility] Glucose Test strip (U) [Mass/Vol] Negative NEGATIVE mg/dL [facility] Hemoglobin Auto test strip Ql (U) Negative NEGATIVE [facility] Interpretation and review of laboratory results Abnormal [facility] Ketones (U) [Mass/Vol] Negative NEGAT NAYE mg/dL [facility] Leukocyte esterase Test strip Ql (U) TRACE Abnormal NEGATIVE [facility] Nitrite Ql (U) Negative NEGATIVE [facility] pH (U) 6.0 [pH] 5.0 - 9.0 [facility] Protein (U) [Mass/Vol] Negative NEGAT NAYE mg/dL [facility] Specific gravity (U) [Rel density] High 1.010 - 1.020 [facility] Urobilinogen Qn (U) Normal 0.0 - 1. 0 EU/dL [facility] Urinalysis,Microon 5 Bacteria 2+ Abnormal [facility] Comment on above: Performed By: #### U MICAO, UAX #### [facility] [address] [place], [place] [id number] Geophysical Data Technician: Jennifer Freire MD Epithelial cells LM Ql (Urine sed) 2 TO 5 Normal 0-25 [facility] Comment on above: Performed By: #### U MICAO, UAX #### [facility] [address] [place] [address] Geophysical Data Technician: Jennifer Freire MD Mucus Strands 2+ Abnormal [facility] Comment on above: Performed By: #### U MICAO, UAX #### [facility] [address] [place] [address] Geophysical Data Technician: Jennifer Freire MD Other Observations MICROSCOPIC PERFORME D ON UNSPUN URINE Abnormal NREQ [facility] Comment on above: Result Comment: Red tity not sufficient. Performed By: #### U MICAO, UAX #### [facility] [address] [place] [address] Geophysical Data Technician: Jennifer Freire MD Urine RBC's 0 TO 2 Normal 0-2 [facility] Comment on above: Performed By: #### U MICAO, UAX #### [facility] [address] [place] [address] Geophysical Data Technician: Jennifer Freire MD Urine WBC's 0 TO 2 Normal 0-5 [facility] Comment on above: Performed By: #### U ASHLEY SALCEDO #### [facility] [address] [place], [place] [address]83 Geophysical Data Technician: Jennifer Freire MD eGFRon 06-27-2024 eGFR 84 mL/min/1.73 m2 Normal >=59 [facility] Comment on above: Performed By: #### 1 [id number] #### [facility] [address] [place] [address] Coding Summaryon 06-26-2024 Coding Summary [employer] 64 JxwethisKQm6iMs+PGhlYW Q+XR9CHHWjN34dhJEiyS7v D5KXVHnTKdbdOZUYATzLGi DhyxQnXJ2isRIdVRTk IC8+YK6aMKHmUulgeLIpf4 C4rJH8J14rgu0yXKcioSG6 RLHhNjZdtrqoj2hqkVu1TM cuNmluOyBt IXDmnB66WZE4sS25Ge55tP SudBVkl0epfIz8JjKkZNOm LKA7qYzuWLdcd2DeXWOqJ6 7ykBZfv9Y0 TEOjdJmhzRTcZpRhrYR7aP 9fOEqphsvjj2kybfocTfv7 jv06sYOcb7B0mFW1I4Pmwk D2ILYexQYt VlxewAPAcE9obqnhs9rfnr ukFvIdQIGtABt5ELc3IHSh mEwqJyRwCX59HGI8DHYfsz LrZ9CbPEXb gVrcHqY5w6Q0Un0UC0BHQn yqR1VPFCTUBGugbIJ+PC90 nt37E7VmPjxuWyy7LRWzBM I2qID9mD4x FJZcVIche8R7uPJ6R8Fpil Aqdz5ll8vqSGWvBXcvX12o dZMbv0F2EUWubTI8PCTieH fzJzZgwP22 Oyc+YARblVvtv0QpJscdf4 ous1dapCb7SacnGRDjbhBi cIfhBQZ5i4GqTo2bAOHaqW Q4iYJ5lO0v KzTqPaU7NSjjD623QtLbuW EvQtfdZ34oT2HozBP+PHRy Fej2ZFQfjEslUA7fU2IaOE RpbmctbGVm sFtzBA2rZQIhwynlRAOusM 1zFSHyO8z7RlMlAdJ4SBlu U4EdGQJsjwuhDn49pR3bZu MkIoB0IPsf W3DjtlM4TKGoxLMsKTcyZM P8P87da8G5WFWlBGQdNVD9 uFW1mE8fdJfdscrauDYezE sgdmVydGlj APhpIDhyX568IZVmcOhgPb NvZGluZyBEYXRlOiAgMDEv MTQvMjAyNTwvdGQ+PHRkIH D4vRziUSNk nRZrLXvdEm9feJrsjJbwAE 0oQCQstpwcZCMqzN7kVJPi mERczVjeJA1vVZIdseifg4 56UxVxZIK5 VVAioIMsS4DblJ0gEbOwSC RgUJQvS0KjoRWeVXsfQ229 QHtsEnL5JJCxaiEkT7FiEV FsaWduOiB0 t3F5Pd9Tk5PtukkfT6FeyD QhRcLoXcflQGg4Q0YmKhvv dHI+NB28XCLjXE17EJg6SX D1gKqpXJxr STSjM2BgtJ0wLzKnBPQuVE RkOyc+PHRhYmxlIHdpZHRo SWpqEVDeIkMozHkxCX3qZk 9yZGVyLWNv fYvluAIhYlKkl8xkXBIvJN djYU1cwNlnI2GgxJN5VAPl p4z5Ef37N11iV6JvqBM+PG FmrCN9wGM7 qQ8hGnOgIfH8SGqfA549Yu MtbSJcSnuer5ycp1aluDf1 HuN9GDTufzOqqJhwKAN5n5 CxAg30G49h IHdpZHRoPSIxNSUiIHZhbG loni3fcV5cPd5+PGNvbCB3 oJN8dB2tJoHmLoZ5WFjkV3 49InRvcCIv Wkqkb7wkk6bciBv3CgMyZE ExzqYtnFjlKFJ6w1QiTd61 S3BwjAyib6ZaVvd6dr25aA Vlo8W2wJF7 X6WhEVWvqnjyfYWeaFiuAQ 0aITYuvhfvNDYulR6gYWGe T8f8SjQbMgZ9ZKqgR1Lasq N8VEVqsQVn JRBuzPSTkU1jnaikl6hdql ayZlJqGARgTRt4CYg9AYQe wTteBqAfFHQ2RoF3VQO0mN SigH8zbKwn mjrykU6lZwm+MQH8fLLyxZ XKBR0vDwikaFP+PHRkIHN0 eStfHVsjZIWwaP5nAREaM7 g9PsIiZwN8 OVaxL0HeqxL5FCCrqAFnSN FcoQKYiO6rfsybp0jczodr NlOxOXUtKMn3VKv7IVOxyK duOiBsZWZ0 KvF3UQS7qJSaiX4bnIpmbu mjlS2hRwx+QmlydGggRGF0 AFc8A3ClUed1PDCjhLqcXY 0ncGFkZGlu Je0jwLmwgBibFN8dIDOelu asp314VmYeb1qtZIMisXAb IIraHSI0U38lh9Z2LGZuUJ CaOLM2oWZ7 aB2qzJapiyubnWMqaRhdgk YmoQleCUzfQOltG076WSXq fPthMnYcUMv6Y7JiZbt6NE QxoYlyWS5f mPBnHDoiFo5ajUwvqMhgCN 6mLAWmhajze085DpWzo7nt PWUvfFLmYHcePCB7W90tj9 S6PRBjBYBv EEV1jAZ3uO5usLeffaqjkU VmdDsgdmVydGljYWwtYWxp C746PUDutOslHcDjtWb1N2 UiKiw8ULAy gRxoIL6uoMXgYMrzOn5nnD trjAxeHJ9bYMUoahubx571 HaHek1xaOMKywGVrMXkbTD U9L73xe1F7 TOMkUGZqWEC6mNX7vT9vxU lnbjogbGVmdDsgdmVydGlj HTlyHPtsH322IHShmLldAn BhdGllbnQg NIzyNWl1I2RwJmordST+PC 40CBQoYN17uIEocYYhy1vn pWb0AxGjPDQgBLG4yZghLJ bak0NqAWZu M93cfNCwx3S3JTPbsRllzR QqRhLbuJD1oK3bLMkxopoy y8agdykzPdfcf7fibd90lN 27P86eOEvi ZHRoPSIzMCUiIHZhbGlnbj 1ueP1rMk7+NZMjcGH0hVC4 hT1wXPWdBtH5OFqyN382Pv RvcCIvPjxj o0wku9hqkCs3LcI2WGTwer ZtcFlnRKI5i9MjVk67B81l IHdpZHRoPSIyMCUiIHZhbG nffh7ygE6m Ii8+QPGcwSQ3tVF7kF1lIj AzZdS5PPweB917RoLxoQTq CqvaO43uB7KouTD+PHRyPj l3LLVeuPun BF0yfVFaXLbrWr8lNUJ8Dm OkHuEyKBlsF2NcEGDuqcik yaybzBC4BZJbQQSbiE84Mh 9udDogMTBw aTQLcX7vypcmq8gdicjtEd XkRXIyRAe3LZd4TWOpjOgw DsDrSPB2OkS9NNM1fTOmbZ 1hbGlnbjog nN9yH5AsTUYknwtyXc90qU 1gWuPfIsI2NGacVuw+SE9X QVJELCBTVEFDSUUgTEVFPC 16FG11zYAf s4B7zYG3H2RfKMKjyjgcjt tljQT0HZLgLUSitS96yVUa NFunSw7gi6M1g609GCWuNP FulR07Ry4s bYndZJUghMKUeT1kbadyr5 ybhvoaJzMtINWkVUm7JVz0 FRIpaUbzTsRhDEP4BgE5IW H1sVPiqP2o vZrjssdenP4eGvb+MDcvMz OtZGt4EctopGA+PHRkIHN0 lUaiEQngKJYkuD8xBSTaW4 z5OjBhYcD2 NEkuV3PmBZDchenjAw47dU 8sCdOaSmC3ZKusP0NdegK5 CFLtfVPtNKxgMQG1S05zv5 P9QLNuNJRs GQG6xIQ2dO7gmBuqwdljgU VmdDsgdmVydGljYWwtYWxp T655NSSeoDpnAiA9FBduVA SrWR88RG12 jDEfj3T6zWF1X9JmMTNsvp bsndjinCU4ORMoLQZatB51 qATbCDkpQy6br9P2n473AC AnGTKspQ89 Ec1szSmdWKYiePPKpD9yjz jou2ofuaidJyCcAFBbAAz2 NKd3LJIxbGicKaOeOJO2Tw Y8HIC6uADw yT5bpSlfebhplT2gSys+Rk BSOVkQJV25IM91iUDik9W7 aZZ0O4NlNHMtmltkadexeS R4VZLzUKWk qW38nHVvHAqtQt8jm9E1s2 15GNOgKHHygZ43Vu5syQhm HVSedZSLeR5yzangh0ceyy ogIzAwMDAw BTm7FXk3NQSdyLevUmDkGY T6IiJ9VHU8pJXmyT8wrOux eqdhlL0bJbx+TB9zfludhm M0SX80ZY02 U5CeNcclePFjbEL+PHRhYm xlIHdpZHRoPScxMDAlJyBz aEixVA4vIm8hCCRdMUNukX xhcHNlOiBj a4baQTMgLKzpIU7naHavO8 TqhTZ6OQOoh2c5Hv72G47d M4PagMN+XZOyfLI6aIT2kQ 3nNwVkKaN3 KVazR350FiTuoQOwLgejo2 kxg3cgvUv2WbLwNBHpjbNh gObmEKH1q4DpEp86J01fZD dpZHRoPSIy DEUwHNDljBoiks9wtR8fIp 8+JIOpgUO2tLL2mQ7uGxSm UhC9QSmcV565AdVbpJWuNw bfH63xY7Nr dXA+OOWyWow9AIZhsMxmJK 5zsGMxKUfcYz2oHKW3WuLz FkJoORzhA1IiCLBwnkzuka aelPJ3YCPo KYZlrH34Wp0keCjxHj3lMD MmIKC3KKYnsCMcV0LdrS4k NzKtPGYpMOMcY4WjjPXmUJ upS429BGrj UhF5NKUtgdDfP4InJWAluL zsPlC7l7V3Mv4ZcKnofFZo QE4dEgHxRUb7Y9IxAvo6TW PyzOgjIV2v wCEjGOifWk7tbGmtvRhdUU 1nUGZarkyuy249QmDbd3ge PXHroWQpSJdnDSB6G86tl5 P0VNNmFEPt YEO5yBY5hD7puDwiesmeuR VmdDsgdmVydGljYWwtYWxp L965OGHvnAejIwDWFnw1U0 EcOku5IGSl oFwwSQ2rqMQeMJbuXn5lfM zvlJbzWO9bWDUiobpyz729 WdNbt0xsFADxvJPlBDryGG L4C71ov3X8 OQGhSVNxDVU7zVO1mK1oeW lnbjogbGVmdDsgdmVydGlj WWmjANqxV504WQBurRmhCo 5SGbz0B3Rb Uto9ZKQllRttYF0rxBRqAZ xmDw6ofTtbhLdrTK9nCXWj gkulm836GqWzw1rvWETpaD QgVGltZXM7 F94he1P3GYEjYVVdSCS1pH N9iI9ogQlnllrtxOMhuLuw wtUuiWgoCMqeYGxsU837FO RvcDsnPlBh eWVyOjwvdGQ+KT76kq82V3 FsQylzYro3SQGyPQG3sAR0 jD5rXTVvLMwov9P3dNJ5F8 JckpYmwu4u b2x (more content not included)... Normal [facility] CRPon 06-25-2024 CRP [Mass/Vol] 0.5 mg/dL Normal <=1.9 [facility] Comment on above: Performed By: #### 2 [id number] #### [facility] [address] [place] [address] CT Abdomen/Pelvis w/o Contra ston 06-25-2024 CT [...] Oral contrast amount in ml's: 0 Normal [facility] ED Clinical Summaryon 2024 ED Clinical Summary ED Clinical Summary [place] [id number] ED Clinical Summary Person Information [facility]: [facility] Age[facility] 39 Years : 1985 Sex: Female Language: Danish PCP: NONE, XXXX Marital Status: MRN: [id number] [...] 06/25/2024 02:50:14 ADDRESS: [address] [place] [id number] PHYS DOC NOTES: MEDICAL INFORMATION: Prescriptions Given: New Medications [facility]/pharmacy #[id number], [address], [place] [id number], [phone] acetaminophen-oxycodon e (Percocet 5 mg-325 mg oral [...] With: Address: When: Ernie CHIRINOS [address] [place] [address] Business (1) In 3 days 06/28/2024 DIAGNOSIS: Abdominal pain, acute Normal [facility] ED Note-Physicianon 06-25-19 ED Note-Physician ED [...] primary care physician as well as her ASSISTED LIVING ADMINISTRATOR for the next available follow-up as an outpatient. Discussed return precautions. Patient was discharged in stable condition. Shared decision making: As above Code status: N/A Assessment/Plan Abdominal pain, acute (R10.9: Unspecified abdominal pain) Ordered: acetaminophen-oxycodon e, 1 tab(s), Oral, q8hr for 3 day(s), 9 tab(s), Refill(s) 0, [facility]/pharmacy #[id number], 165, cm, 06/24/24 19:33:00 EST, [...] In 3 days 06/28/2024 EST [address] [place] [phone] Business (1) Additional Instructions: Patient Education Abdominal Pain, Adult Problem List/Past Medical History Ongoing No chronic problems Historical Endometriosis Ovarian cyst Procedure/Surgical History Hysterectomy. Medications Inpatient HYDROmorphone 1 mg/mL injec (more content not included)... Normal [facility] Comment on above: Result Comment: Elec tronically Signed By: Ritesh Heath DO\.br\Date and Time Signed: 06/25/24 02:44 EST ED Patient Summaryon 025 ED Patient Summary ED Patient Summary [address] [address] Patient Discharge Instructions Person Information Name: ANTONIA NOYOLA Age: 39 Years Arrival Date: 06/24/2024 19:23:55 Discharge Diagnosis: Abdominal pain, acute Primary Care Physician: NONE, XXXX Provider Information Primary Provider: Ritesh Heath DO Advanced Admitting Office Escort:None The exam and treatment you received in the Emergency Department were for an urgent problem and are not intended as complete care. It is important that you follow up with a doctor, nurse practitioner, or physician???s chef assistant for ongoing care. If your symptoms [...] Instructions: With: Address: When: Ernie [place] [address] Business (1) In 3 days 06/28/2024 In the event that this physician does not participate in your insurance network, please consult with your insurance company to find a nearby participating provider. Patient Education Materials: Abdominal Pain, Adult A MESSAGE TO ALL PATIENTS REGARDING OPIOIDS PRESCRIPTION OPIOIDS: WHAT YOU NEED TO KNOW Prescription opioids can be used to help relieve uhburpdz-fv-uupxmc pain and are often prescribed following a [...] be struggling with addiction, tell your health skin care instructor and ask for guidance or call S (more content not included)... Normal [facility] Sed Rate Automatedon 025 ESR (Bld) [Velocity] 35 mm/h High 0-34 [facility] Comment on above: Performed By: #### 1 [id number] #### [facility] [address] [place] [address] BMPon 06-24-2024 Anion gap [Moles/Vol] 13 mmol/L Normal 6-16 Fis her [facility] Comment on above: Performed By: #### 2 [id number] #### [facility] [address] [place] [address] Calcium [Mass/Vol] 9.9 mg/dL Normal 8.9-11.1 [facility] Comment on above: Performed By: #### 2 [id number] #### [facility] [address] [place] [address] Chloride [Moles/Vol] 107 mmol/L Normal 101-[address] [facility] Comment on above: Performed By: #### 2 [id number] #### [facility] [address] [place] [address] CO2 [Moles/Vol] 23 mmol/L Normal 21-31 [facility] Comment on above: Performed By: #### 2 [id number] #### [facility] [address] [place] [address] Creatinine [Mass/Vol] 0.7 mg/dL Normal 0.5-1.3 [facility] Comment on above: Performed By: #### 2 [id number] #### [facility] [address] [place] [address] Glucose [Mass/Vol] 116 mg/dL Normal 55-199 [facility] Comment on above: Performed By: #### 2 [id number] #### [facility] [address] [place] [address] Potassium [Moles/Vol] 3.9 mmol/L Normal 3.5-5.3 [facility] Comment on above: Performed By: #### 2 [id number] #### [facility] [address] [place] [address] Sodium [Moles/Vol] 139 mmol/L Normal 135-145 [facility] Comment on above: Performed By: #### 2 [id number] #### [facility] [address] [place] [address] Urea nitrogen [Mass/Vol] 6 mg/dL Normal 5-21 [facility] Comment on above: Performed By: #### 2 605591 #### [facility] [address] [place] [address] Urea nitrogen/Creatinine [Mass ratio] 9 No Units Low 10-20 [facility] Comment on above: Performed By: #### 2 [id number] #### [facility] [address] [place] [address] CBC w/ Auto Diffon 5 Basophils/100 WBC (Bld) 1.2 % Normal 0.0-2.0 [facility] Comment on above: Performed By: #### 2 [id number] #### [facility] [address] [place] [address] Basophils/Leukocytes Auto (Bld) [Pure # fraction] 0.0 E9/L Normal 0.0-0.2 [facility] Comment on above: Performed By: #### 2 [id number] #### [facility] [address] [place] [address] Eosinophils (Bld) [#/Vol] 0.0 E9/L Normal 0.0-0.5 [facility] Comment on above: Performed By: #### 2 [id number] #### [facility] [address] [place] [address] Eosinophils/100 WBC (Bld) 0.4 % Normal 0.0-8.0 [facility] Comment on above: Performed By: #### 2 [id number] #### [facility] [address] [place] [address] Erythrocyte distribution width (RBC) [Ratio] 19.4 % High 10.9-14.2 [facility] Comment on above: Performed By: #### 2 816472 #### [facility] [address] [place] [address] Hematocrit (Bld) [Volume fraction] 37.3 % Normal 34.0-46.0 [facility] Comment on above: Performed By: #### 2 938904 #### [facility] [address] [place] [address] Hemoglobin (Bld) [Mass/Vol] 11.8 g/dL Low 12.0-16.0 [facility] Comment on above: Performed By: #### 2 569115 #### [facility] [address] [place] [address] Hypochromia Auto Ql (Bld) PRESENT Invalid Interpretation Code [facility] Comment on above: Performed By: #### 2 139419 #### [facility] [address] [place] [address] Lymphocytes (Bld) [#/Vol] 1.3 E9/L Normal 1.0-4.0 [facility] Comment on above: Performed By: #### 2 085869 #### [facility] [address] [place] [address] Lymphocytes/100 WBC (Bld) 30.4 % Normal 14.0-50.0 [facility] Comment on above: Performed By: #### 2 508458 #### [facility] [address] [place] [address] MCH (RBC) [Entitic mass] 22.8 pg Low 27.0-34.0 [facility] Comment on above: Performed By: #### 2 547602 #### [facility] [address] [place] [address] MCHC (RBC) [Mass/Vol] 31.6 g/dL Normal 31.4-36.0 [facility] Comment on above: Performed By: #### 2 619668 #### [facility] [address] [place] [address] MCV (RBC) [Entitic vol] 72.2 fL Low 80.0-100.0 [facility] Comment on above: Performed By: #### 2 155318 #### [facility] [address] [place] [address] Microcytes Ql (Bld) PRESENT Invalid Interpretation Code [facility] Comment on above: Performed By: #### 2 [id number] #### [facility] [address] [place] [address] Monocytes (Bld) [#/Vol] 0.2 E9/L Normal 0.2-1.0 [facility] Comment on above: Performed By: #### 2 [id number] #### [facility] [address] [place] [address] Neutrophils (Bld) [#/Vol] 2.6 E9/L Normal 2.0-7.5 [facility] Comment on above: Performed By: #### 2 955612 #### [facility] [address] [place] [address] Neutrophils/100 WBC (Bld) 62.2 % Normal 36.0-75.0 [facility] Comment on above: Performed By: #### 2 135534 #### [facility] [address] [place] [address] Platelet mean volume (Bld) [Entitic vol] 7.6 fL Normal 6.4-10.8 [facility] Comment on above: Performed By: #### 2 729548 #### [facility] [address] [place] [address] Platelets (Bld) [#/Vol] 563.0 E9/L High 150.0-500.0 [facility] Comment on above: Performed By: #### 2 [id number] #### [facility] [address] [place] [address] RBC (Bld) [#/Vol] 5.2 E12/L Normal 4.3-5.9 [facility] Comment on above: Performed By: #### 2 494751 #### [facility] [address] [place] [address] RBC size Nom (Bld) SEE MORPHOLOGY Invalid Interpretation Code [facility] Comment on above: Performed By: #### 2 [id number] #### [facility] [address] [place] [address] WBC corrected for nucl RBC Auto (Bld) [#/Vol] 4.2 E9/L Normal 4.0-11.0 [facility] Comment on above: Performed By: #### 2 134196 #### [facility] [address] [place] [address] CHEMISTRYOrdered By: SYSTEM SYSTEM on 06-24-2024 Albumin [...] 35 mm/h High 0 - 34 mm/hr [facility] HemeAutoSS Hep Func Panelon 06-24-2024 Albumin [Mass/Vol] 4.6 g/dL Normal 3.3-5.0 [facility] Comment on above: Performed By: #### 2 [id number] #### [facility] [address] [place] [address] Albumin/Globulin (S) [Mass conc ratio] 1.1 Normal 1.1-2.2 [facility] Comment on above: Performed By: #### 2 613913 #### [facility] [address] [place] [address] ALP [Catalytic activity/Vol] 79 Int._Unit/L Normal 21-98 [facility] Comment on above: Performed By: #### 2 158729 #### [facility] [address] [place] [address] ALT No additional P-5'-P [Catalytic activity/Vol] 17 Int._Unit/L Normal 6-46 [facility] Comment on above: Performed By: #### 2 [id number] #### [facility] [address] [place] [address] AST [Catalytic activity/Vol] 21 Int._Unit/L Normal 5-43 [facility] Comment on above: Performed By: #### 2 543920 #### [facility] [address] [place] [address] Bilirubin [Mass/Vol] 0.3 mg/dL Normal 0.0-1.[address] [facility] Comment on above: Performed By: #### 2 593754 #### [facility] [address] [place] [address] Bilirubin.direct [Mass/Vol] 0.0 mg/dL Normal 0.0-0.4 [facility] Comment on above: Performed By: #### 2 726003 #### [facility] [address] [place] [address] Bilirubin.indirect [Mass or moles/Vol] 0.3 mg/dL Normal 0.1-0.9 [facility] Comment on above: Performed By: #### 2 066181 #### [facility] [address] [place] [address] Globulin (S) [Mass/Vol] 4.0 g/dL Normal 1.4-4.0 [facility] Comment on above: Performed By: #### 2 511627 #### [facility] [address] [place] [address] Protein [Mass/Vol] 8.6 g/dL High 6.0-7.8 [facility] Comment on above: Performed By: #### 2 620499 #### [facility] [address] [place] [address] Lipase Levelon 06-24-2024 Lipase [Catalytic activity/Vol] 29 U/L Normal 13-58 [facility] Comment on above: Performed By: #### 2 602362 #### [facility] [address] [place] [address] SEROLOGYOrdered By: Levi rajan on 06-24-2024 HCG.beta subunit (U) [Moles/Vol] Negative Normal [facility] Man Sero U BetaHcg Qualon 06-24-2024 HCG.beta subunit (U) [Moles/Vol] Negative Normal [facility] Comment on above: Performed By: #### 2 [id number] #### [facility] [address] [place] [address] UA with Cult Rflxon 06-24-19 25 Bilirubin Ql (U) Negative Normal Negative [facility] Comment on above: Performed By: #### 4 [id number] #### [facility] [address] [place] [address] Clarity (U) Clear Normal Clear [facility] Comment on above: Performed By: #### 4 [id number] #### [facility] [address] [place] [address] Color (U) Colorless Abnormal Yellow [facility] Comment on above: Result Comment: Micr oscopic readings are only performed on those samples that meet specific criteria set forth by [facility]. Performed By: #### 4 [id number] #### [facility] [address] [place] [address] Glucose Ql (U) Negative Normal Negative [facility] Comment on above: Performed By: #### 4 [id number] #### [facility] [address] [place] [address] Hemoglobin Auto test strip (U) [Mass/Vol] Negative Normal Negative [facility] Comment on above: Performed By: #### 4 [id number] #### [facility] [address] [place] [address] Ketones Auto test strip Ql (U) Negative Normal Negative [facility] Comment on above: Performed By: #### 4 [id number] #### [facility] [address] [place] [address] Leukocyte esterase Auto test strip Ql (U) Negative Normal Negative [facility] Comment on above: Performed By: #### 4 [id number] #### [facility] [address] [place] [address] Nitrite Auto test strip Ql (U) Negative Normal Negative [facility] Comment on above: Performed By: #### 4 [id number] #### [facility] [address] [place] [address] pH (U) 7.0 [pH] Invalid Interpretation Code 5.0-9.0 [facility] Comment on above: Performed By: #### 4 [id number] #### [facility] [address] [place] [address] Protein Ql (U) Negative Normal Negative [facility] Comment on above: Performed By: #### 4 [id number] #### [facility] [address] [place] [address] Specific gravity (U) [Rel density] 1.003 Invalid Interpretation Code 1.005-1.030 [facility] Comment on above: Performed By: #### 4 [id number] #### [facility] [address] [place] [address] Urobilinogen (U) [Mass/Vol] Negative Normal Negative [facility] Comment on above: Performed By: #### 4 [id number] #### [facility] [address] [place] [address] Type of Urine collection method Clean Catch Normal [facility] Comment on above: Performed By: #### 4 [id number] #### [facility] [address] [place] [address] URINALYSISOrdered By: SYSTEM SYSTEM on 06-24-2024 Bilirubin Ql (U) Negative Normal Negativemg/ dL FT UA Auto SS Clarity (U) Clear (06/24/24 11:36 PM) Normal Clear [facility] UA Auto SS Color (U) Colorless 1 *ABN* (06/24/24 11:36 PM) Invalid Interpretation Code Yellow [facility] UA Auto SS Comment on above: Interpretive Data: M icroscopic readings are only performed on those samples that meet specific criteria set forth by [facility]. Glucose Ql (U) Negative Normal [...] Desc Clean Catch (06/24/24 11:36 PM) Normal [facility] UA Auto SS Work Phone: eGFRon 06-24-2024 eGFR 114 mL/min/1.73 m2 Normal >=59 [facility] Comment on above: Performed By: #### 1 [id number] #### [facility] [address] [place] [address] Coding Summaryon 06-23-2024 Coding Summary HTMLBase 64 LzwrvydiMSz9cLo+PGhlYW Q+BF9MQVSrD37lrHPxxR1p R1ERBBnSTktrHHZGUPdWJe SfhfMfHT9yxAJmYCKc IC8+NC7oWRYmAstgrIDfv8 J2kFF4G45ijc2xVHitjZI8 YGZyVoJbnqipe2voaUw5KC cuNmluOyBt BRRkzI50BJD1xQ89Po67yF UxvBEog2frnHv2BhGqFJQc XXJ3jVngGIfhh4WtWZOfQ5 4kkSTts6H3 TDUmkWlhkAUfOzFvqDQ7hG 8kJYppspztv4kjfvdhDsg7 qx33uTKob4W1aWD6Y7Bavn Q6MULglNQr TtkwyPFLqK0clfmqm9ewld cvBiReFQOxLCg1TAw4UKXu tTzhOzLrOF05MSS0UQRpxt CkA4UdPLHm zAblKlR6c4B1Ff9OE0OCTm kbP8ICFISCAGjjeRD+PC90 pe74N6JcAmwzNxj7KMFhGZ K4fTQ6kE4z TMMgZGjkq2S6xIX7J7Ezcy Mdlx4ou3bmFTWdBQrlB33h eUJpd3U1ZWRutNB7PFGadS vhKtGvnQ80 Oyc+IKWjrIljn0NsIvdpv4 dll1ggrQn0MqcvLQKxedIa uEteMEL8v0AsYo4iFMGtsM Z1rOV5mR0c DvDxAiN1HRbrS082CyVbvC RjPwfyW86eP4MvwRR+PHRy Nfr4ZAXhjXzmVF8pG0SaHH RpbmctbGVm sUyvVD7iQNZbbgegILFzeV 2fKWUbW5e1CaNwMyG1ZGeo Z4MbFYWrscxyBm51gZ5cOw MyMpZ8RApq H6UfwtQ4WFAooXEiJDazGM M7I75wv3M8RDHyBHVcADW3 aOW0hA6snPwbxevzlKGngV sgdmVydGlj UCwqTVvfP240UAGehAxeEz NvZGluZyBEYXRlOiAgMDEv MTEvMjAyNTwvdGQ+PHRkIH I0zVbgVDMv qJRqEIvqEc1dwOxalHskXU 7yFIKdipipWEHjbJ2vPNTc uFKyeMhwIP1cBREtbvsil2 07QwSgCPH3 VVDkiKYpL9SwpR0yOcWhLT EjWPDmA2KapVWgOHqfI744 FHkmIzG2CAPqmdBnN6MxNU FsaWduOiB0 j5M8Yx1Ph2IyujltG1IznI HpQxOyHrjsIFa7G1PuQyzs dHI+KF44OBEsJI96YJe5TA E9kKxiSSsz UFGvN8PzzE0qCoGpNCRdKH RkOyc+PHRhYmxlIHdpZHRo BEbtHGWgRlIzuDdnCG9nOd 9yZGVyLWNv fHflxPSpFiCrq9igIGSqAB xaRC2jySmyY7ObmJA9DBRi f9t4Dz73L23xH1GjbCF+PG BnnAM3sJM0 uD2mFuFnEdH1WNqiF865Tv AybNXyRflvv4xof6szeSu2 WcE6HSKdomTbdGiqIUH9p6 AlAv71W24s IHdpZHRoPSIxNSUiIHZhbG ebdf2hmN4iSb5+PGNvbCB3 sLV9vF0sPnWiHtK1XUreL3 49InRvcCIv Auebj2mca3mjkVj3ZfIaAC CfhcLmlCbdDCN6x3AjQy17 K3OlfJlev7WoAyj5yj47wF Kaw8J3nYB9 R5SnLLNlfndqhEVmlUeaHY 3wDHZthmjeAGFyvY1hIZRh K3u4RlJuEyO6HHvpL0Jrgk A7RRWryMXc LSMagNAWwB0ugtoga1efyf jvCmXkZKMzFLy9DSs4BVUo cEscWxRvZFD6CdD1NCN0sP IpmL2muMzu sqcsgB7xIcp+NCC7eCPodX LYRG0kQqsgcCD+PHRkIHN0 pHpmWDttZZCekL1dWZLeU9 a0MtAwFsU8 XGogI7HskxX0DODjhGIuRB HbtWPNoY4hujisu1leiwze RvGdUUHdQVw3WWh6CNIgjN duOiBsZWZ0 WmI8BRV0oNQtdL2yxAtdbn kpdT9mCbm+QmlydGggRGF0 MJt8F7SzGgv6LKJzyXefWC 0ncGFkZGlu Ai4ozNauvWvrSR3qBMUgxo ljd662RxIrm1slIPDedBYk IKdfHMW8S55ee9P6XTUwMI EdKFG7bCB7 yG7rbMehbkizqDDoiDiakg FdxZqpJKowANokS295VEJu jPkjDkAnMRw7W7LzWys1AE LaqSrsYN2q yHRkFFmhXl8vqEeqoDijTI 0gFUKoqmbqk969FwKyc8xk HFAgrCFbVExcKLT3T45li0 B6TKZlNKMq MEQ1rBI4zI5zpIvnkosknH VmdDsgdmVydGljYWwtYWxp W692QIUsoYogYsSstPd6S4 DrEfy5EYFf yEppMI4jcFMlRXcvGq7soK obmYvaJT2gFVPxbinqo716 HdVnz7dpTYBaqDSpKMblTK H3H33fl7V0 DPPmFINiNGS8cRF1iK8svX lnbjogbGVmdDsgdmVydGlj GKrnAQnlD701GJYuoIucNq BhdGllbnQg WIdhCFl5C7MdEfoalGT+PC 18IYQjPL23pISxeNPlx4jr fBv5HoMfMVVuTHP8fVrnAC cpy6SdRNTd L43lqPXoc1J6TFWasVxbeZ CpRfQhmMN5jB5nGZqhkqog i1weswqjGnrfc6laoz43sO 87Z36pCGsd ZHRoPSIzMCUiIHZhbGlnbj 2ybC6tQd8+MFAzaNE2iDO7 pG8aVOZwXcI8ATfcO798Xr RvcCIvPjxj i3hbc2xccIj1YvR5FVGcli EryMcxYCM2c3YoCy62B08z IHdpZHRoPSIyMCUiIHZhbG abuh2ooG4n Ii8+TLAsyQU5kLO1qG3dQr TjYbM8BCgbL628LqUjxAUv EnqaK43gC2TgeMF+PHRyPj o2ZIChkKaz PK9whPTtDJlcIx2vIRY2Dz XvIjPtBUmsZ0CrLXJxmnih dcnahGR1PJXqEQFwwR02Dp 9udDogMTBw nTUQoB1dgchvj6nsjlnrCx FxVEHmVIw6VWo0QIZeeRuj HnTzGYT2AcA9LBA5uEPfnO 1hbGlnbjog qV3gN4QmRTBwvghvLu63kS 2sOdNwOwQ5MXucSye+SE9X QVJELCBTVEFDSUUgTEVFPC 55AS94mZRu e9X0lLU6V8QhBPOlkltukk zorHH4FUOiQGVxhW32gEYz BWpoXw3pl3T9g761YSTyMN QzaL83Gl3r mAwuZYDxwXWUhO1pehzvw2 jdzketXtLpTRIfTDb5RCk0 ZGYtuOmtLqTzXST4ZqN6RD H5mASnaC4c fZgatvgdzT1oHcj+MDcvMz PcJFr6TjfcwOQ+PHRkIHN0 yKcsAWsrCCCijF5iLZAdZ9 d4DrKaJxE5 SCzxP7NiLCUvdxkmYv53aY 7tIiClMyO8XMvhV6RaxlQ1 BKLlwJKgIBsbZWH4U01vx7 N3UPGfQWQm NQX2aHM5vH0btBctuemcnX VmdDsgdmVydGljYWwtYWxp L140GOEwdRcgSnU0AWkzYT EtIL96GC83 wSGen0Y6gHF9P3HrLELuwf anoxewuRX6BGNvLYGkoE15 aTJhZIicOo6um6N2w554BQ MnASEacH47 Nl1abIznSAVjgONWmS0nmt ibz3kkclmoJuLiPYIfTZw1 AZv7UHGnlTtvEtEpWYL0Ba I3CDS1fZBo cO5wmKassdjukU4gHhs+Rk UISBwRDT78GB26dGShj4U1 jPW1T3XaFKRekoqsbejpxG X4DANdNJKt vX48kFVwJFwqVp5gk9G0i6 69HGNoPGZqhL58Bb1fmKtg QRAcfDRCuA5ocqjdp2vfcy ogIzAwMDAw FRh6WZu4XPMslUumIpAlYV S9PjI4GQM4lIAdnA4irCxk wewjfC6lYdp+RX9jmvgxmu H9VR38SU84 V6PxLaiutTBnvGB+PHRhYm xlIHdpZHRoPScxMDAlJyBz lEaiFO6eFk0jUNTkLRLgyY xhcHNlOiBj v5ycDOFnLKtfLW9cbKgcE0 LomKF8TUKpv0y4Se88H06q H3JmwAD+FTSuaVV5aMV7nT 0oBkArQbO0 ZIxpB092MxViiIPoObnlk7 isr8dvhFl9CjHcAIVbecUa yNpaNOY8o7HuAu99I97gDC dpZHRoPSIy CUIvJIDmhYqgba1cxG7vCn 8+WYEeqZK9cJV9gQ8iXrRs QcW2HPzdO986BmVpsPPnAk czS02wD0Kh dXA+USMsFeb6TBElqXvrTX 3hjZHjRSquUd8wVWK2KiXn KyWwXUfkN7FlRRZzzprpbl nmiGO4SSNq WXKevW41Fm2llUboMm3xIA ZqDLD0FYEbcEDpM3ZvgM3d MdYyJEQuXKFpN9RmoXRoLK nrB143JAsj ArF3QEFdrjNnT0CuPOQizM qvQmG7v2D1Wj6VrFjmqUJq YX7kMnFeZZq1I0MlHuo6IQ YdjNavMY1g sSUfGVflBt4qvPukyUclBU 5eHSQtoykpk235WfSme4jo ZVNwvOXqSVqrAIF5E32bb8 Y9YCSfLPRe KUI4yBA7aG4ojZinkdyztM VmdDsgdmVydGljYWwtYWxp Q129LKIroIkaDdMNGkj4F0 ZqAur1XCDp oXlaMD6kmWBlOSdlHm9xqZ tupOvkVS9aNFFnoczma499 OxGao2ncHQMwzALmDRawRJ N4Q27uy4V8 CEInEYViMJJ4lHW6yV8psP lnbjogbGVmdDsgdmVydGlj YSthKGqcB678IIQtnOeaEg 0OCod0L7Yy Mhd8MZPcxVmjUZ1qdHLiHK svGi1npYnikBfyVS4oNNDl gqakj228PdRpc5kkSJUlvC QgVGltZXM7 K58lp0I4NLElWQIqHUC4gH U1tC0hsGvrbkjfnPSzzXyp cxYwsFgpSAexSCqzV215DW RvcDsnPlBh eWVyOjwvdGQ+BH95ou22V5 BvTzvgDtu3KBWdHKJ7iIT8 uH2kJMWmUEgar7M0kTU1X5 DjarWoje5z b2x (more content not included)... [facility] Summary HTMLBase 64 EywndbfdADp6jVo+PGhlYW Q+CV1FUXAgG20rlCSezR3f S2MUEOsSAezbQSXOSFnLEi BadcLfJX7nuXQeAQUz IC8+QV3tLNWiNcesuPAta3 W0iUM0N80wkt3pUJvkpUJ7 LBAuCtGlfpnxf7ktxXm4YP cuNmluOyBt MQNyfW45ULV0tF52Yx66zR WviIOmn5xmuVo6RoXxQLWw FQV9uBamLWfib0TmSWVyB7 3nvYJlp5H2 SNQvkEbinIRkBrJsnFR3bZ 3tDQyyrlifl0ygdxeyZut1 am41sKJlo4W4lPC4W9Pekn R2QUUycWJp NmoqzLRSuZ9ooxuyr6bpkn egArHiHZRyEXr0PDh3KSNy oCdxPyHeSD76DDF9ZGRira MxA7DyJXLk tWuxZcW6y8W4Fk1XF5HNBg adT8WSREGGAArclHR+PC90 yo31L4QpXikhVis6FHOfIF X1wGR1dK6m JHYcRStzy0C7jDE2T6Wgoq Kmtz6ui8lnHDDnAVbzE84d uXGts0I4BJYoiPP6EPMgcD wmLdNzwA93 Oyc+VUUddBprm4QlTmmfg0 xit7jmbNp3ZbqcMZQzlhTc yPgvSKY2z8FvDk0fOTBzrY F5qCC2zL2z SqDcBjP8QStuV387FoXvbM AqSwurJ53dI4WpbPB+PHRy Ssx6KVCwvMbpNJ0tI0FnFD RpbmctbGVm sRkvSM8fEFZvbckvRYSkpO 3lMZGxZ4s8UfZhMoW6COdd H2GnFBFdmccuAs06rU3pHm BkZgR7YYam N9PhjfL9LGPedLHuFCozYO G1S02ev0M5SOWgJSJsHAZ3 qFG4cM5nzPhutdgggWXjsB sgdmVydGlj WZjiGMvgB654DNAmaQfvZe NvZGluZyBEYXRlOiAgMDEv MTEvMjAyNTwvdGQ+PHRkIH F1eSetZHRc kQMkODncAk8tiXyeoRspUP 6cQXBmdsutXDSxbC6tLWQh cUPoxZslSP1xDFViyaonz6 60SqUqPLL3 EJRidWXyZ5AcwF4wHtIiKW NpABFgM4WlnNElLOwqH662 IXljXrN0CYGxdcRfC9MwYV FsaWduOiB0 g6N8Dd7Nx3LywsztY5GmsB GaCrGfEwquBNs8T8YqQpeq dHI+BS86JEYcBY70GGt5VN G1nPsrFTuz QDZnU0QliJ7cBkZgZFYqIE RkOyc+PHRhYmxlIHdpZHRo CKocUZRhQsVhqWtqGR4hAl 9yZGVyLWNv fUticBEpGmPcm2ijIHWiPA suWP1bnFjnJ0BapVD0DDJd j3p5Gr12F05bV6QvvBP+PG RkbTW2pYC3 rZ7kUuBaNfT9BJfvT491Dj VrpWXwChymf3lfw3bvhWo5 PuE2NBQpdrUrxKaoBQF8q1 IgOd17C17n IHdpZHRoPSIxNSUiIHZhbG yutd0foI3fWp7+PGNvbCB3 uKK3hK0jWtQgEmE3CIrsJ5 49InRvcCIv Bamsj4mbw4ysgMg7PxCqZY KdcvIelYdgTVN6z6ByNl64 Y4JmeWpxg8DuBsf1qg77lR Nud5R8sMX4 L2AfJLWhtxoojIFooTovZU 4aKPNwnwnoPWSwfI6yDZFa B5v2JeGdRbC2LXczK2Aanc H5COZgwLUj RBDauPYIgN1yymkfr9sufc wjYoCcUKFzPTt0VAy3OLZg cNfgEtPnJLA2WuY9CUJ5nU WrbC1owOdr dclorR9dFlu+PWK6bWLlmF GAYI3uZvpkvJS+PHRkIHN0 eDvbDBpqEFDgzK9mMRLbE6 k3WxTgJaD9 CFyhV9BpkzT5ORCgtDOzVT SzvBCThV6dbqybx5aelogg ErZtNTDxVZi9BJk3LOYjhG duOiBsZWZ0 LkQ6EUA0vFGktL8trAtudq fthY7vSzu+QmlydGggRGF0 ZSz4J0WkGsa3VBNuoWsqWF 0ncGFkZGlu Ay3upWexbJsuYO1kEFXgps pfj183XaRts0mbJAJqbOSp JVkoDFB5Y67kc1T0IODbTH JoOQQ1fTO1 hE3voHnwuofniTSzbSoofa AxrLjcWLcfZChnG251LSHx aRqaGdWgWUn2P1GcEci5FS ShcPfbZC2i pXLsOWsoEd8wiFbjuTdqTS 6vRDWhnjjsc147PrNwp3nf YOIykESwCBmkELG2K72ah9 M5HEFbVQRk RFF9sHO9kF5voUwvejrhjN VmdDsgdmVydGljYWwtYWxp X777WDYxkObzQhTnoFu8T2 GjAzn3LSPy hQnyHA2ncXMyGHjuAt0jpX kzsGulLJ2aFRMxipwcd758 QaZwn3rgCLHnsSVeQOudTI M3Q11kw8E0 OQZxFRBdQMT1oLW3zE2laS lnbjogbGVmdDsgdmVydGlj EQdcLYylW769DFSxhIoiYg BhdGllbnQg JFtxDCb0E3AaZrrwuPD+PC 26WPFhUU03wRJzbETnp7dg cGo1JoVjPUYvGBB6sYzhOI dtu4ViRGMc U72zcYRia1L3BOGjeCygiB JaVeDmgIA8eK8dMNlotgry w2nofbzvYqcva0ujtm91vW 48F75jZBre ZHRoPSIzMCUiIHZhbGlnbj 8rlW7iWj9+FEGgaAO7gSH7 cZ1eYGAzDuI5ASloZ666Vd RvcCIvPjxj u1xpu6wijPu9BaH5RSHwee EfhDtsXNW2t1TwQn41K27r IHdpZHRoPSIyMCUiIHZhbG pcil9twX2p Ii8+PCEbaQQ8rTJ5aO4cPy UiLlM8FUqbJ693RaXhnGMa EoxuY60dN5ZcnWF+PHRyPj p7TKSkfOcu SI9znDTdSFlvJi6lGGH1Xl NmTtFmLNgrJ5SfFTKnnjjw yqllhCV2ZOIwTOSmyA22Hu 9udDogMTBw nWTVlL6lcvujk5gpiqnfRx WnEWMwIGa5HLw5LXCgfWop RbScOJF0DxO4JDK3kSQcvD 1hbGlnbjog sB9yK1GjITSzmqhiCb17aJ 0iFnVsQbR4LJsuSnn+SE9X QVJELCBTVEFDSUUgTEVFPC 38MR45dMGm e8W4kHZ1V6JtQSNiykdczk sdcWH5PICnAYOajN44iNHu HUvgNf8ae6V6y136IBZzTZ HckW71Gi0q wApdJFKfiJSJuN7tomorx9 gqlwvxXbSjOQHuOUg6FIj9 VPFtsSmpDpPqXKQ4ZlJ1CN M8lINleN4w wTfexgiqaG6oJif+MDcvMz RuBSv7AjqjgLP+PHRkIHN0 sJozNDjdXUObpW4rKLMfU7 p3NeZeHcS3 GIxdJ8AsZOBjedyaLm58oB 4zAbExMgB4GWnmS2WzbtD0 KGNxaDQyOFcaIIT4G20ta9 P2XQGfKXWl ROI3dUA9gL2muPzvwglmzI VmdDsgdmVydGljYWwtYWxp O284FRCehDoyGoI9SEzpDF PgPO04CY51 wBKwx4W4zIY6O4VaQRGtbi esphxcdQD0EAJvRPOtfG91 bPFtJCwmIc6zm6S4d442WM HxGBByzI25 Kn0ytEsiVKJxrFCGlX0hjt dlo6hsbvbwOyXmPJYmSSj3 EOd4GBBepHwdFyTvHHG6Ob U7QEF3yQKa xT2vqHyxeahzcW4lWog+Rk KPLFrQRY09JZ62gXIgc2L2 jQL1I4AqCCOkeyqirkcfsZ Q9ZWIwYVXm mQ30qODwROeeQd0ki3Q1z2 01RZWpKOHzfW12Ou4bmLlu FUYfkPBCtO9gihymf3bjrm ogIzAwMDAw SOe0UGj8ENShlMigTrFeFY V3AnX8AYT1bZMlfI1yuIqh htouzA3jWdx+WN4ttueifl P4DT94QF20 L7SsRezfxFNtmNZ+PHRhYm xlIHdpZHRoPScxMDAlJyBz jNjzGV9nHf6rKITxUUDdrQ xhcHNlOiBj o4rjHGFyRFcdRH3qxQgnE8 DcdOZ5WIXdd5h2Ru28P56b F9AdeCS+ITItnJN5jAS5dO 5vMpQkWtR8 DYdbP342RsBogLWfRqlnd1 xcc9zucXs5QgInKQIdfxHl oPeaWWG3u8VaXm03Q08yML dpZHRoPSIy GDFrFRVxzVzdpj0uzY3sJd 8+JOBjxDB1wKX6sC2tObXu CyA6ATtaL679VnAlgTUnXo mxR21fL9Ud dXA+TFWoZpn7JUEtfWwrMU 7voSXbHOehNf2eHPF1XdQd KhIzNDmhZ8JnCHSqvvhedc vvxEJ3LHHz SUCnuS41Nv5sjHtqMv6uCH QhZSF1YKAvvYXyU1RmkS3g XnRnZMBtVAAcB5XlhHKhVG cwU269MBdz MuD2YMPckiNvM7DtHEBsqE bdLfL9x7O5Ha6ZcBrdhYZd UU6kYaKrFMe7B5YmCyz8RE TirLfhVI9a iXWyUGoxLe9lzEwaiDhjKC 6kRTBenaidm426ShDdj2jc YEMjpTSySArbOBC7L84ho4 F8BPIvLTNh AGI7vEE6xW9hrIlscpfsjE VmdDsgdmVydGljYWwtYWxp Z717JQBwxCpfMeSKKhx5Z3 VfEmd1IYJv uMwmHP6ojOVgWBffLu3pjV czeBigBN3lSEWildzlr064 PdGxn5onIYLloIJuTMwnWU W3F06wm1C2 PIUdAVEdDGP4zSV5tA9tqM lnbjogbGVmdDsgdmVydGlj ZCmtAFknJ360HNNxmQuvIo 0HOfm3P7Kb Qnr8GPVarNyeLA2noIUmNA rtWm2keNpptDvaWB4zHKOx tsctd268BhTlc3ppVZOxqE QgVGltZXM7 U84jc7I0OKVbBBIpQUO5gX D2zD7ugDaudovwwGWgnRyd vtQktDgkNAgyQHchE539NH RvcDsnPlBh eWVyOjwvdGQ+OY74wf83D3 ZaMiaiKyw1PHHrFRQ1uFG0 aO1cGQOzKOfkc2Z7iEW2D6 PvilJqft9u b2x (more content not included)... [facility] Release of Informationon Release of Information [id number]#1.0 0OTGTIFF [facility] Consent Formson 06-12-2024 Consent Forms [id number]#1.0 0OTGTIFF [facility] .Auto Diff 1on 06-11-2024 Auto [place] % 6 % Normal 06-24 [facility] Comment on above: Performed By: #### 1 [id number], 9591567, 7201446193, [id number], [id number] ####[facility] (DEFAULT)[address] [place] [address] 47042 Baso Abs# 0.0 x10 Normal 0.0-0.2 [facility] Comment on above: Performed By: #### 1 3767112, 0749532, 1286095126, 4811699139, 2391315455 ####[facility] (DEFAULT)[address] [place] [address] 48754 Basophils/100 WBC (Bld) 0.7 % Normal 0.2-2.0 [facility] Comment on above: Performed By: #### 1 0901334, 2615714, 1014337457, 9885194251, [id number] ####[facility] (DEFAULT)[address] [place] [address] 50529 Eos Abs# 0.0 x10 Normal 0.0-0.4 [facility] Comment on above: Performed By: #### 1 5013933, 6351326, 6144194825, 0677604331, [id number] ####[facility] (DEFAULT)[address] [place] [address] 05870 Eosinophils/100 WBC (Bld) 0.8 % Low 0.9-4.0 [facility] Comment on above: Performed By: #### 1 1337297, 6783891, 7410282773, 1284191947, 4857668288 ####[facility] (DEFAULT)[address] [place] [address] 08197 Lymph Abs# 2.0 x10 Normal 1.3-2.9 [facility] Comment on above: Performed By: #### 1 0870672, 6105719, 7479153199, 6641005192, [id number] ####[facility] (DEFAULT)[address] [place] [address] Lymphocytes/100 WBC (Bld) 37 % Normal 14-48 [facility] Comment on above: Performed By: #### 1 3902288, 1301311, 0550418274, 6428541989, 6200665608 ####[facility] (DEFAULT)[address] [place] [address] [place] Abs# 0.3 x10 Normal 0.0-0.8 [facility] Comment on above: Performed By: #### 1 3985798, 4547499, 5162234118, 2402766316, [id number] ####[facility] (DEFAULT)[address] [place] [address] Neut Abs# 3.1 x10 Normal 1.5-9.2 [facility] Comment on above: Performed By: #### 1 8560559, 0260871, 8370436373, 8239767934, 4967686550 ####[facility] (DEFAULT)[address] [place] [address] Neutrophils/100 WBC (Bld) 56 % Normal 44-88 [facility] Comment on above: Performed By: #### 1 6567830, 4318884, 3552854472, 0743920121, 4469461471 ####[facility] (DEFAULT)[address] [place] [address] CBC w/ Auto Diffon 4 Man Diff? Auto Normal [facility] Comment on above: Performed By: #### 1 2195737, 5075604, 3451816205, 4017981265, 8465976143 ####[facility] (DEFAULT)[address] [place] [address] Erythrocyte distribution width (RBC) [Ratio] 20.0 % High 11.5-15.0 [facility] Comment on above: Performed By: #### 1 8946448, 0763479, 8519711071, 1324276626, 7173921538 ####[facility] (DEFAULT)[address] [place] [address] 82256 Hematocrit (Bld) [Volume fraction] 35.5 % Normal 33.7-40.4 [facility] Comment on above: Performed By: #### 1 4371063, 6884220, 9959407962, 1262837248, 4286551215 ####[facility] (DEFAULT)[address] [place] [address] 55205 Hemoglobin (Bld) [Mass/Vol] 11.3 g/dL Normal 11.3-15.9 [facility] Comment on above: Performed By: #### 1 3221116, 0797086, 6456337131, 9709160940, [id number] ####[facility] (DEFAULT)[address] [place] [address] 06726 MCH (RBC) [Entitic mass] 23 pg Low 24-34 [facility] Comment on above: Performed By: #### 1 7939589, 9418760, 2080747438, 4937065360, 9197958941 ####[facility] (DEFAULT)[address] [place] [address] 18147 MCHC (RBC) [Mass/Vol] 32 g/dL Normal 26-37 [facility] Comment on above: Performed By: #### 1 6711463, 9504015, 5435288828, 1893861564, 4366842803 ####[facility] (DEFAULT)[address] [place] [address] 45275 MCV (RBC) [Entitic vol] 73 fL Low 81-100 [facility] Comment on above: Performed By: #### 1 2345716, 1870903, 4449495150, 1542328205, 8171893814 ####[facility] (DEFAULT)[address] [place] [address] 34081 Platelet 432 x10 High 138-427 [facility] Comment on above: Performed By: #### 1 6525108, 5722815, 4609443859, 5399119531, 6407011024 ####[facility] (DEFAULT)[address] [place] [address] 88843 Platelet mean volume (Bld) [Entitic vol] 7.8 fL Normal 6.3-10.2 [facility] Comment on above: Performed By: #### 1 3758022, 3867093, 2834848449, 5610005310, 4677563165 ####[facility] (DEFAULT)[address] [place] [address] RBC 4.87 x10 Normal 3.70-5.30 [facility] Comment on above: Performed By: #### 1 4617125, 3741593, 1259776785, 7957618437, 0866525438 ####[facility] (DEFAULT)[address] [place] [address] 71919 WBC 5.5 x10 Normal 3.5-10.5 [facility] Comment on above: Performed By: #### 1 3041472, 9829678, 0954533274, 0811842917, 0613037341 ####[facility] (DEFAULT)[address] [place] [address] 86821 CMP Standardon 06-11-2024 eGFR Non AA >60 Invalid Interpretation Code [facility] Comment on above: Performed By: #### 1 0098752, 5411937, 6969654884, 0383001151, 2966670122 ####[facility] (DEFAULT)[address] [place] [address] 84804 eGFR AA >60 Invalid Interpretation Code [facility] Comment on above: Performed By: #### 1 4311579, 6731935, 5725566892, 1826682980, 2335198167 ####[facility] (DEFAULT)[address] [place] [address] 82806 Albumin [Mass/Vol] 4.2 g/dL Normal 3.5-5.0 [facility] Comment on above: Performed By: #### 1 5414841, 2066157, 3591150390, 7025377729, 3545356527 ####[facility] (DEFAULT)[address] [place] [address] 99229 Albumin/Globulin [Mass ratio] 1.0 {ratio} Low 1.4-2.6 [facility] Comment on above: Performed By: #### 1 1417594, 9905001, 3907165337, 9269686186, 9744011539 ####[facility] (DEFAULT)[address] [place] [address] 79498 Alk Phos 61 IU/L Normal 32-91 [facility] Comment on above: Performed By: #### 1 7852748, 2175477, 6074782769, 5981999013, 7695563691 ####[facility] (DEFAULT)[address] [place] [address] 91603 ALT [Catalytic activity/Vol] 28.0 U/L Normal 14.0-54.0 [facility] Comment on above: Performed By: #### 1 5876506, 0830936, 8512787183, 3277611889, 2223215732 ####[facility] (DEFAULT)[address] [place] [address] 99455 Anion gap [Moles/Vol] 12.4 mmol/L Normal 5.0-19.0 [facility] Comment on above: Performed By: #### 1 1790457, 3726202, 0866268837, 0941224766, 7519615879 ####[facility] (DEFAULT)[address] [place] [address] 99718 AST [Catalytic activity/Vol] 23 U/L Normal 15-41 [facility] Comment on above: Performed By: #### 1 3048254, 9891884, 1442753349, 7148368744, 0107484973 ####[facility] (DEFAULT)[address] [place] [address] 20118 Bili Total 0.8 mg/dL Normal 0.3-1.2 [facility] Comment on above: Performed By: #### 1 6744249, 1118394, 9812494000, 5108254680, 1914157692 ####[facility] (DEFAULT)[address] [place] [address] 94788 Calcium [Mass/Vol] 9.1 mg/dL Normal 8.9-10.3 [facility] Comment on above: Performed By: #### 1 6607671, 7470268, 0345504106, 6032125492, 1277807398 ####[facility] (DEFAULT)[address] [place] [address] 92180 Chloride [Moles/Vol] 106 mmol/L Normal 101-111 [facility] Comment on above: Performed By: #### 1 0352077, 1730282, 3096752567, 6367355431, 4561827741 ####[facility] (DEFAULT)[address] [place] [address] 35441 CO2 [Moles/Vol] 23 mmol/L Normal 21-32 [facility] Comment on above: Performed By: #### 1 2000633, 0572821, 3430011911, 8087654770, 6402062763 ####[facility] (DEFAULT)[address] [place] [address] 52947 Creatinine [Mass/Vol] 0.78 mg/dL Normal 0.60-1.30 [facility] Comment on above: Performed By: #### 1 4874303, 9861056, 7198110630, 3516339509, 6133548735 ####[facility] (DEFAULT)[address] [place] [address] 92689 Globulin (S) [Mass/Vol] 4.1 g/dL Normal 1.5-4.3 [facility] Comment on above: Performed By: #### 1 5965037, 1969233, 9131175682, 0492758376, 5869962408 ####[facility] (DEFAULT)[address] [place] [address] 03611 Glucose [Mass/Vol] 104.0 mg/dL Normal 74.0-118.0 [facility] Comment on above: Performed By: #### 1 3115088, 8944348, 9153280960, 9296950755, 1641708140 ####[facility] (DEFAULT)[address] [place] [address] 25269 Osmolality 274 mOsm/L Invalid Interpretation Code [facility] Comment on above: Performed By: #### 1 7928612, 3662384, 1475470912, 9548546453, 6580540736 ####[facility] (DEFAULT)[address] [place] [address] 25484 Potassium [Moles/Vol] 3.4 mmol/L Low 3.6-5.1 [facility] Comment on above: Performed By: #### 1 8344032, 6512359, 3137927497, 7281286893, 7348348652 ####[facility] (DEFAULT)[address] [place] [address] 11297 Protein [Mass/Vol] 8.3 g/dL High 6.5-8.1 [facility] Comment on above: Performed By: #### 1 8766205, 3244311, 3473523688, 3449322908, 8964004741 ####[facility] (DEFAULT)[address] [place] [address] 61247 Sodium [Moles/Vol] 138.0 mmol/L Normal 136.0-144.0 [facility] Comment on above: Performed By: #### 1 0443547, 0162924, 4275308451, 8496240327, 0306959454 ####[facility] (DEFAULT)[address] [place] [address] 23587 Urea nitrogen [Mass/Vol] 8 mg/dL Normal 8-26 [facility] Comment on above: Performed By: #### 1 0889752, 2310880, 0016317818, 0704592225, 7729270434 ####[facility] (DEFAULT)[address] [place] [address] 14147 Urea nitrogen/Creatinine [Mass ratio] 10.2 mg/mg Normal 4.6-16.2 [facility] Comment on above: Performed By: #### 1 5780015, 7875584, 4773480655, 3205148123, 7264368039 ####[facility] (DEFAULT)[address] [place] [address] 02672 Breakpoint Chem Normal [facility] Comment on above: Performed By: #### 1 0584341, 5796017, 3290397894, 4327939608, 9799152796 ####[facility] (DEFAULT)[address] [place] [address] 77525 ED Clinical Summaryon 2023 ED Clinical Summary [facility] - Emergency Department [address] [place] [address] 83674 ED Clinical Summary PERSON INFORMATION Name: ANTONIA NOYOLA Age: 39 Years Sex: FEMALE : 1985 MRN: Acct#: Visit Reason: Abdominal pain; RT SIDE ABD PAIN Arrival: 06/11/2024 15:13:20 Discharge: 06/11/2024 18:32:00 LOS: 000 03:19 Check In: 06/11/2024 15:13:20 Checkout:06/11/2024 18:32:00 Address: [address] [place] [address] [place] [address] PCP: Provider, None PROVIDER INFORMATION Provider Role [...] Home PATIENT EDUCATION INFORMATION Instructions: Ovarian Cyst, Sezh-du-Xipk Follow-Up: With: Address: When: Provider, None [address] [place] [address] Within 3 to 5 days Comments: Please call Dr. Wilson office and see if you can be seen sooner than June 18. CT scan shows a possible right ovarian cyst. This needs further evaluation from an ASSISTED LIVING ADMINISTRATOR specialist. Continue taking medication as needed for pain. May take Tylenol 1000 mg every 6 hours as needed for pain. May take ibuprofen 600 mg every 8 hours as needed for pain. DIAGNOSIS: 1:Other ovarian cyst, right side Patient Understands: Yes - Patient/family/caregiv er verbalizes understanding of instructions given Comment: Normal [facility] ED Patient Summaryon 024 ED Patient Summary [facility] - Emergency Department [address] [place] [address] [id number] PATIENT DISCHARGE INSTRUCTIONS Patient Information Name: ANTONIA NOYOLA Age: 39 Years Date of : 1985 [facility]: [id number] Reason For Visit: Abdominal pain; RT SIDE ABD PAIN Arrival Time: 06/11/2024 15:13:20 Primary Care Physician: Shazia Adair Attending Physician: Eran Hill MD Comment: Visit Diagnosis: Diagnoses This Visit Abdominal pain ([id number]) Other ovarian cyst, right side (N83.291) The Pharmacy at [facility] is open Tuesday through Tuesday from [...] alcohol and/or drug addiction problems; contact the [facility] 03/01 Crisis Hotline -Text 9BIZF si [phone]. If you received any narcotics, sedation, or [...] legal documents With: Address: When: Provider, Shazia [address] [place] [address] Within 3 to 5 days Comments: Please call Dr. Wilson office and see if you can be seen sooner than June 18. CT scan shows a possible right ovarian cyst. This needs further evaluation from an ASSISTED LIVING ADMINISTRATOR specialist. Continue taking medication as needed for pain. May take Tylenol 1000 mg every 6 hours as needed for pain. May take ibuprofen 600 mg every 8 hours as needed for pain. Medication Information: The exam and treatment you received today in the [facility] Emergency Department were for an urgent problem and are not intended as complete care. It is important for you to follow up with a doctor, nurse practitioner, or physician?s chef assistant for ongoing care. If your symptoms [...] so we can reach you if necessary. [facility] Emergency Department has provided you with a complete list of medications post discharge. Please inform your health professional/provider of your visit and for further instruction [...] ovarian syndrom (more content not included)... Normal [facility] UA w Culture if Ind Standard on 06-11-2024 Breakpoint UA [facility] Comment on above: Performed By: #### 1 [id number] ####[facility] (DEFAULT)[address] [place] [address] 20141 Color (U) Yellow [facility] Comment on above: Performed By: #### 1 [id number] ####[facility] (DEFAULT)[address] [place] [address] 77047 Culture? Not Indicated Invalid Interpretation Code [facility] Comment on above: Result Comment: Resu lt created by rule GL_MAGR_ADD_UA_CULT1 Performed By: #### 1 [id number] ####[facility] (DEFAULT)[address] [place] [address] 21156 Glucose (U) [Mass/Vol] Negative [facility] Comment on above: Performed By: #### 1 [id number] ####[facility] (DEFAULT)[address] [place] [address] 15789 Ketones Ql (U) Negative [facility] Comment on above: Performed By: #### 1 [id number] ####[facility] (DEFAULT)[address] [place] [address] 53970 Micro? Not Indicated Invalid Interpretation Code [facility] Comment on above: Result Comment: Resu lt created by rule GL_MAGR_ADD_UA_MICRO Performed By: #### 1 [id number] ####[facility] (DEFAULT)[address] [place] [address] 03321 UA Bilirubin Negative [facility] Comment on above: Performed By: #### 1 [id number] ####[facility] (DEFAULT)[address] [place] [address] 25386 UA Blood Negative Normal [facility] Comment on above: Performed By: #### 1 [id number] ####[facility] (DEFAULT)[address] [place] [address] 79884 UA Clarity CLEAR Normal CLEAR [facility] Comment on above: Performed By: #### 1 [id number] ####[facility] (DEFAULT)[address] [place] [address] UA Leuk Est Negative Normal NEGATIVE [facility] Comment on above: Performed By: #### 1 [id number] ####[facility] (DEFAULT)[address] [place] [address] 43545 UA Nitrite Negative Normal NEGATIVE [facility] Comment on above: Performed By: #### 1 [id number] ####[facility] (DEFAULT)[address] [place] [address] UA pH 6.5 Normal 5-8 [facility] Comment on above: Performed By: #### 1 [id number] ####[facility] (DEFAULT)[address] [place] [address] UA Protein Negative Normal [facility] Comment on above: Performed By: #### 1 [id number] ####[facility] (DEFAULT)[address] [place] [address] UA Spec Grav 1.010 Normal 1.001-1.035 [facility] Comment on above: Performed By: #### 1 [id number] ####[facility] (DEFAULT)[address] [place] [address] UA Urobilinogen 0.2 mg/dL Normal 0.2-1.0 [facility] Comment on above: Performed By: #### 1 [id number] ####[facility] (DEFAULT)[address] [place] [address] Urine Source Clean Catch Normal [facility] Comment on above: Performed By: #### 1 [id number] ####[facility] (DEFAULT)[address] [place] [address] US Pelvis Non-OB Completeon 06-11-2024 US Pelvis [...] Rina Rushing MD 06/11/24 6:46 pm Technologist: [facility] US Transvaginalon 06-11-2024 US Transvaginal EXAM: [...] Rina Rushing MD 06/11/24 6:46 pm Technologist: [facility] CBC AND AUTO DIFFon 06-10-20 ABSOLUTE BASOPHIL 0.1 X10E9/L Normal 0.0-0.2 [facility] Comment on above: Performed By: #### C BCA, CMP, 25335-0 #### [facility] ([id number]) [address], [address] [place] [address] ABSOLUTE NEUTROPHIL 3.8 X10E9/L Normal 1.5-6.6 [facility] Comment on above: Performed By: #### C BCA, CMP, 35136-9 #### [facility] ([id number]) [address], [address] [place] [address] Basophils/100 WBC (Bld) 0.9 % Normal [facility] Comment on above: Performed By: #### C BCA, CMP, 60334-5 #### [facility] ([id number]) [address], [address] [place] [address] Eosinophils (Bld) [#/Vol] 0.0 10*3/uL Normal 0.0-0.[address] [facility] Comment on above: Performed By: #### C BCA, CMP, 28400-5 #### [facility] ([id number]) [address], [facility] [address] [place] [address] Eosinophils/100 WBC (Bld) 0.6 % Normal [facility] Comment on above: Performed By: #### Leila JOE, CMP, 36236-2 #### [facility] ([id number]) [address], [facility] [address] [place] [address] Erythrocyte distribution width (RBC) [Ratio] 20.0 % High 11.5-15.[address] [facility] Comment on above: Performed By: #### Leila BCA, CMP, 34165-6 #### [facility] ([id number]) [address] [address] [place] [address] Hematocrit (Bld) [Volume fraction] 31.9 % Low 35-[address] [facility] Comment on above: Performed By: #### C BCA, CMP, 07825-5 #### [facility] ([id number]) [address] [address] [place] [address] Hemoglobin (Bld) [Mass/Vol] 10.2 g/dL Low 11.7-15.[address] [facility] Comment on above: Performed By: #### C BCA, CMP, 11058-7 #### [facility] ([id number]) [address], [address] [place] [address] Lymphocytes (Bld) [#/Vol] 3.1 10*3/uL Normal 1.0-3.[address] [facility] Comment on above: Performed By: #### Leila JOE CMP, 41014-5 #### [facility] ([id number]) [address], [address] [place] [address] Lymphocytes/100 WBC (Bld) 41.0 % Normal [facility] Comment on above: Performed By: #### Leila JOE CMP, 52402-8 #### [facility] ([id number]) [address], [facility] [address] [place] [address] MCH (RBC) [Entitic mass] 22.8 pg Low 27-[address] [facility] Comment on above: Performed By: #### Leila JOE CMP, 43036-6 #### [facility] ([id number]) [address], [address] [place] [address] MCHC (RBC) [Mass/Vol] 31.9 g/dL Low 32-36 [facility] Comment on above: Performed By: #### Leila JOE CMP, 79500-2 #### [facility] ([id number]) [address], [address] [place] [address] MCV (RBC) [Entitic vol] 72 fL Low 80-100 [facility] Comment on above: Performed By: #### Leila JOE CMP, 42195-6 #### [facility] ([id number]) [address], [address] [place] [address] Monocytes (Bld) [#/Vol] 0.5 10*3/uL Normal 0-0.[address] [facility] Comment on above: Performed By: #### Leila JOE, CMP, 26463-3 #### [facility] ([id number]) [address], [address] [place] [address] Monocytes/100 WBC (Bld) 6.6 % Normal P [facility] Comment on above: Performed By: #### C BCA, CMP, 55858-2 #### [facility] ([id number]) [address], [facility] [address] [place] [address] Neutrophils/100 WBC (Bld) 50.9 % Normal [facility] Comment on above: Performed By: #### Leila BCA, CMP, 16551-1 #### [facility] ([id number]) [address], [address] [address] Platelet mean volume (Bld) [Entitic vol] 7.4 fL Normal 7-[address] [facility] Comment on above: Performed By: #### Leila BCA, CMP, 06269-9 #### [facility] ([id number]) [address] [address] [address] Platelets (Bld) [#/Vol] 415 10*3/uL Normal 150-[address] [facility] Comment on above: Performed By: #### Leila BCA, CMP, 26239-2 #### [facility] ([id number]) [address], [facility] [address] [place] [address] RBC COUNT 4.46 X10E12/L Normal 3.80-5.[address] [facility] Comment on above: Performed By: #### Leila BCA, CMP, 19440-8 #### [facility] ([id number]) [address] [address] WBC (Bld) [#/Vol] 7.5 10*3/uL Normal 4.0-11.0 [facility] Comment on above: Performed By: #### Leila BCA, CMP, 42960-1 #### [facility] ([id number]) [address] [address] [place] [address] CHLAMYDIA/GC BY PCRon 2023 CHLAMYDIA/GC BY PCR [...] on adequate specimen collection. Normal [facility] Comment on above: Performed By: #### C BCA, CMP #### [facility] ([id number]) [address], [address] [place] [address] COMPREHENSIVE METABOLIC [facility]ANE [facility] 06-10-2024 Albumin [Mass/Vol] 4.0 g/dL Normal 3.2-5.3 [facility] Comment on above: Performed By: #### C BCA, CMP, 56111-6 #### [facility] ([id number]) [address], [facility] [address] [place] [address] ALP [Catalytic activity/Vol] 65 U/L Normal 39-[address] [facility] Comment on above: Performed By: #### C BCA, CMP, 19050-9 #### [facility] ([id number]) [address], [address] [place] [address] ALT [Catalytic activity/Vol] 32 U/L High 0-[address] [facility] Comment on above: Performed By: #### C BCA, CMP, 94594-1 #### [facility] ([id number]) [address], [address] [place] [address] Anion gap [Moles/Vol] 11 mmol/L Normal 5-15 [facility] Comment on above: Performed By: #### C BCA, CMP, 68920-2 #### [facility] ([id number]) [address] [address] [place] [address] AST [Catalytic activity/Vol] 29 U/L Normal 0-[address] [facility] Comment on above: Performed By: #### C BCA, CMP, 71798-6 #### [facility] ([id number]) [address], [address] [place] [address] Bilirubin [Mass/Vol] 0.6 mg/dL Normal 0.3-1.2 [facility] Comment on above: Performed By: #### C BCA, CMP, 80106-9 #### [facility] ([id number]) [address], [facility] [address] [place] [address] Calcium [Mass/Vol] 9.0 mg/dL Normal 8.5-10.5 [facility] Comment on above: Performed By: #### C BCA, CMP, 37989-9 #### [facility] ([id number]) [address], [facility] [address] [place] [address] Chloride [Moles/Vol] 105 mmol/L Normal 98-109 [facility] Comment on above: Performed By: #### C BCA, CMP, 29195-8 #### [facility] ([id number]) [address], [facility] [address] [place] [address] CO2 [Moles/Vol] 24 mmol/L Normal 22-[address] [facility] Comment on above: Performed By: #### C BCA, CMP, 88797-7 #### [facility] ([id number]) [address] [address] [place] [address] Creatinine [Mass/Vol] 0.76 mg/dL Normal 0.40-1.00 [facility] Comment on above: Result Comment: METH OD TRACEABLE TO IDMS STANDARD Performed By: #### C BCA, CMP, 27827-8 #### [facility] ([id number]) [address] [address] [place] [address] eGFR (CKD-EPI) NON-RACE DEPENDENT >90 Normal >[address] [facility] Comment on above: Result Comment: Reported eGFR is based on the CKD-EPI 2020 equation that does not use a race coefficient. Performed By: #### C BCA, CMP, 62706-3 #### [facility] ([id number]) [address], [address] [place] [address] Glucose [Mass/Vol] 119 mg/dL High 65-99 [facility] Comment on above: Performed By: #### C BCA, CMP, 55403-7 #### [facility] ([id number]) [address], [address] [place] [address] Potassium [Moles/Vol] 3.3 mmol/L Low 3.5-5.0 [facility] Comment on above: Performed By: #### C BCA, CMP, 35579-7 #### [facility] ([id number]) [address], [address] [place] [address] Protein [Mass/Vol] 7.2 g/dL Normal 6.0-8.0 [facility] Comment on above: Performed By: #### C BCA, CMP, 63165-9 #### [facility] ([id number]) [address], [address] [place] [address] Sodium [Moles/Vol] 140 mmol/L Normal 134-146 [facility] Comment on above: Performed By: #### C BCA, CMP, 26117-2 #### [facility] ([id number]) [address], [address] [place] [address] Urea nitrogen [Mass/Vol] 7 mg/dL Normal 5-[address] [facility] Comment on above: Performed By: #### C BCA, CMP, 22557-6 #### [facility] ([id number]) [address], [address] [place] [address] Follitropin Qnon 06-10-2024 FOLLICLE STIM HORMONE 6.7 mIU/mL Normal [facility] Comment on above: Result Comment: NORMAL FEMALE Luteal 1.8-5.1 mIU/mL Follicular 3.8-8.8 mIU/mL Mid Cycle 4.5-22.5 mIU/mL Post [place] 16.7-113.6 mIU/mL Performed By: #### C BCA, [facility], 39173-4 #### [facility] ([id number]) [address] [place] [address], [address] [place] [address] URN MACROSCOPIC NURon 2023 BILIRUBIN AUDREY Small Abnormal NEG [facility] Comment on above: Performed By: #### N UM #### [facility] ([id number]) [address] [place] [address] BLOOD/HGB AUDREY Negative Normal NEG [facility] Comment on above: Performed By: #### N UM #### [facility] ([id number]) [address] [place] [address] GLUCOSE AUDREY Negative Normal NEG [facility] Comment on above: Performed By: #### N UM #### [facility] ([id number]) [address] [place] [address] KETONES AUDREY 15 mg/dL Abnormal NEG [facility] Comment on above: Performed By: #### N UM #### [facility] ([id number]) [address] [place] [address] LEUKOCYTE ESTERASE AUDREY Negative Normal NEG [facility] Comment on above: Performed By: #### N UM #### [facility] ([id number]) [address] [place] [address] NITRITE AUDREY Negative Normal NEG [facility] Comment on above: Performed By: #### N UM #### [facility] ([id number]) [address] [place] [address] PH AUDREY 5.5 Normal 5.0-8.[address] [facility] Comment on above: Performed By: #### N UM #### [facility] ([id number]) [address] [place] [address] PROTEIN AUDREY Trace Abnormal NEG [facility] Comment on above: Performed By: #### N UM #### [facility] ([id number]) [address] [place] [address] SPECIFIC GRAVITY AUDREY >=1.030 Normal 1.003-1.035 [facility] Comment on above: Performed By: #### N UM #### [facility] ([id number]) [address] [place] [address] UROBILINOGEN AUDREY 0.2 eu/dL Normal <1.[address] [facility] Comment on above: Performed By: #### N UM #### [facility] ([id number]) [address] [place] [address] US PELVIC WITH TRANSVAGINALo n 06-10-2024 US [...] on 06/10/2024 10:18 AM Normal [facility] Urine collection deviceon ER EXTRA URINES ER EXTRA URINE ORDER IN PROCESS Normal [facility] VAGINITIS PANEL PCRon 2023 VAGINITIS PANEL [...] to determine patient diagnosis. Normal [facility] Comment on above: Performed By: #### V PPCR #### [facility] ([id number]) [address] [place] [address], [address] [place] [address] CBC AND AUTO DIFFon 06-09-20 ABSOLUTE BASOPHIL 0.1 X10E9/L Normal 0.0-0.2 [place] Comment on above: Performed By: #### C HEATH [facility], 3040-3, 10911-0, #### [facility] ([id number]) [address] [place] [address] ABSOLUTE NEUTROPHIL 2.7 X10E9/L Normal 1.5-6.6 [facility] Comment on above: Performed By: #### C STEVE JOE, 3040-3, 19743-5, #### [facility] ([id number]) [address] [place] [address] Basophils/100 WBC (Bld) 1.0 % Normal [facility] Comment on above: Performed By: #### C BCA, CMP, 3040-3, 63978-2, 1987-10, #### [facility] ([id number]) [address] [place] [address] Eosinophils (Bld) [#/Vol] 0.1 10*3/uL Normal 0.0-0.4 [facility] Comment on above: Performed By: #### C BCA, CMP, 0-3, 81234-3, 1987-10, #### [facility] ([id number]) [address] [place] [address] Eosinophils/100 WBC (Bld) 1.0 % Normal [facility] Comment on above: Performed By: #### C HEATH, CMP, 0-3, , 1987-10, #### [facility] ([id number]) [address] [place] [address] Erythrocyte distribution width (RBC) [Ratio] 20.2 % High 11.5-15.0 [facility] Comment on above: Performed By: #### C BCA, CMP, 0-3, , 1987-10, #### [facility] ([id number]) [address] [place] [address] Hematocrit (Bld) [Volume fraction] 31.2 % Low 35-47 [facility] Comment on above: Performed By: #### C BCA, CMP, 3040-3, 58491-8, 1987-10, #### [facility] ([id number]) [address] [place] [address] Hemoglobin (Bld) [Mass/Vol] 10.2 g/dL Low 11.7-15.5 [facility] Comment on above: Performed By: #### C BCA, CMP, 0-3, 43095-1, 1987-10, #### [facility] ([id number]) [address] [place] [address] Lymphocytes (Bld) [#/Vol] 2.6 10*3/uL Normal 1.0-3.5 [facility] Comment on above: Performed By: #### C HEATH [facility], 0-3, , 1987-10, #### [facility] ([id number]) [address] [place] [address] Lymphocytes/100 WBC (Bld) 44.6 % Normal [facility] Comment on above: Performed By: #### C HEATH [facility], 3039-3, , 1987-10, #### [facility] ([id number]) [address] [place] [address] MCH (RBC) [Entitic mass] 23.5 pg Low 27-34 [facility] Comment on above: Performed By: #### C HEATH, [facility], 0-3, , 1987-10, #### [facility] ([id number]) [address] [place] [address] MCHC (RBC) [Mass/Vol] 32.8 g/dL Normal 32-36 [facility] Comment on above: Performed By: #### C HEATH, CMP, 0-3, , 1987-10, #### [facility] ([id number]) [address] [place] [address] MCV (RBC) [Entitic vol] 72 fL Low 80-100 [facility] Comment on above: Performed By: #### C HEATH, CMP, 3040-3, , 1987-10, #### [facility] ([id number]) [address] [place] [address] Monocytes (Bld) [#/Vol] 0.5 10*3/uL Normal 0-0.9 [facility] Comment on above: Performed By: #### C BCA, CMP, 3040-3, 07784-1, 1987-10, #### [facility] ([id number]) [address] [place] [address] Monocytes/100 WBC (Bld) 7.7 % Normal [facility] Comment on above: Performed By: #### C BCA, CMP, 3040-3, 10878-8, 1987-10, #### [facility] ([id number]) [address] [place] [address] Neutrophils/100 WBC (Bld) 45.7 % Normal [facility] Comment on above: Performed By: #### C BCA, CMP, 3040-3, 66326-1, 1987-10, #### [facility] ([id number]) [address] [place] [address] Platelet mean volume (Bld) [Entitic vol] 7.5 fL Normal 7-12 [facility] Comment on above: Performed By: #### C BCA, CMP, 3040-3, 72114-2, 1987-10, #### [facility] ([id number]) [address] [place] [address] Platelets (Bld) [#/Vol] 438 10*3/uL Normal 150-450 [facility] Comment on above: Performed By: #### C BCA, CMP, 3040-3, 24372-9, 1987-10, #### [facility] ([id number]) [address] [place] [address] RBC COUNT 4.35 X10E12/L Normal 3.80-5.20 [facility] Comment on above: Performed By: #### C BCA, CMP, 3040-3, 52741-3, 1987-10, #### [facility] ([id number]) [address] [place] [address] WBC (Bld) [#/Vol] 5.9 10*3/uL Normal 4.0-11.0 [place] Comment on above: Performed By: #### C BCA, CMP, 3040-3, 62982-5, 1987-10, #### [facility] ([id number]) [address] [place] [address] COMPREHENSIVE METABOLIC PANE Van 06-09-2024 Albumin [Mass/Vol] 4.1 g/dL Normal 3.2-5.3 [place] Comment on above: Performed By: #### C BCA, CMP, 3040-3, 82603-6, 1987-10, #### [facility] ([id number]) [address] [place] [address] ALP [Catalytic activity/Vol] 68 U/L Normal 39-130 [facility] Comment on above: Performed By: #### C BCA, CMP, 3040-3, 91662-3, 1987-10, #### [facility] ([id number]) [address] [place] [address] ALT [Catalytic activity/Vol] 36 U/L High 0-31 [facility] Comment on above: Performed By: #### C BCA, CMP, 3040-3, 64102-8, 1987-10, #### [facility] ([id number]) [address] [place] [address] Anion gap [Moles/Vol] 9 mmol/L Normal 5-15 [facility] Comment on above: Performed By: #### C BCA, CMP, 3040-3, 89521-0, 1987-10, #### [facility] ([id number]) [address] [place] [address] AST [Catalytic activity/Vol] 30 U/L Normal 0-41 [facility] Comment on above: Performed By: #### C BCA, CMP, 3040-3, 66679-4, 1987-10, #### [facility] ([id number]) [address] [place] [address] Bilirubin [Mass/Vol] 0.7 mg/dL Normal 0.3-1.2 [facility] Comment on above: Performed By: #### C BCA, CMP, 3040-3, 94682-1, 1987-10, #### [facility] ([id number]) [address] [place] [address] Calcium [Mass/Vol] 9.3 mg/dL Normal 8.5-10.5 [place] Comment on above: Performed By: #### C BCA, CMP, 3040-3, 23473-5, 1987-10, #### [facility] ([id number]) [address] [place] [address] Chloride [Moles/Vol] 108 mmol/L Normal 98-109 [facility] Comment on above: Performed By: #### C BCA, CMP, 3040-3, 78301-1, 1987-10, #### [facility] ([id number]) [address] [place] [address]605 CO2 [Moles/Vol] 22 mmol/L Normal 22-32 [facility] Comment on above: Performed By: #### C BCA, CMP, 3040-3, 22173-9, 1987-10, #### [facility] ([id number]) [address] [place] [address] Creatinine [Mass/Vol] 0.75 mg/dL Normal 0.40-1.00 [facility] Comment on above: Result Comment: METH OD TRACEABLE TO IDMS STANDARD Performed By: #### C STEVE JOE, 3040-3, 50141-9, 1987-10, #### [facility] ([id number]) [address] [place] [address] eGFR (CKD-EPI) NON-RACE DEPENDENT >90 Normal >59 [facility] Comment on above: Result Comment: Reported eGFR is based on the CKD-EPI 2020 equation that does not use a race coefficient. Performed By: #### C STEVE JOE, 3040-3, 34370-5, 1987-10, #### [facility] ([id number]) [address] [place] [address] Glucose [Mass/Vol] 103 mg/dL High 65-99 [place] Comment on above: Performed By: #### C STEVE JOE, 0-3, , 1987-10, #### [facility] ([id number]) [address] [place] [address] Potassium [Moles/Vol] 3.8 mmol/L Normal 3.5-5.0 [facility] Comment on above: Performed By: #### C STEVE JOE, 0-3, , 1987-10, #### [facility] ([id number]) [address] [place] [address]61 Protein [Mass/Vol] 7.5 g/dL Normal 6.0-8.0 [place] Comment on above: Performed By: #### C STEVE JOE, 3040-3, , 1987-10, #### [facility] ([id number]) [address] [place] [address]32 Sodium [Moles/Vol] 139 mmol/L Normal 134-146 [place] Comment on above: Performed By: #### C HEATH, CMP, 3040-3, 17747-5, 1987-10, #### [facility] ([id number]) [address] [place] [address] 83650 Urea nitrogen [Mass/Vol] 7 mg/dL Normal 5-23 [facility] Comment on above: Performed By: #### C HEATH, CMP, 3040-3, 87577-2, 1987-10, #### [facility] ([id number]) [address] [place] [address] LIPASEon 06-09-2024 Lipase [Catalytic activity/Vol] 37 U/L Normal 17-40 [facility] Comment on above: Performed By: #### C HEATH, CMP, 3040-3, 99877-3, 1987-10, #### [facility] ([id number]) [address] [place] [address] 66908 Lactate (P arely) [Moles/Vol]o n 06-09-2024 LACTATE W/REFLEX 1.2 mmol/L Normal 0.4-2.[address] [facility] Comment on above: Result Comment: Result did not trigger repeat Lactate, re-order if needed. Performed By: #### C HEATH, CMP, 3040-3, 84470-0, 1987-10, #### [facility] ([id number]) [address] [place] [address] 13439 URINE CULTUREon 06-09-2024 Bacteria identified Cx Nom (U) CULTURE RESULTS 10-50,000 ORGANISMS/mL NORMAL UROGENITAL RASHID Normal [facility] Comment on above: Performed By: #### C HEATH, CMP, 3040-3, 99468-6, 1987-10, #### [facility] ([id number]) [address] [place] [address] 62811 URN MACROSCOPIC NURon 2023 BILIRUBIN AUDREY Negative Normal NEG [facility] Comment on above: Performed By: #### C BCA, CMP, 3040-3, 42961-4, 1987-10, #### [facility] ([id number]) [address] [place] [address] [place] [address] BLOOD/HGB AUDREY Trace Abnormal NEG [facility] Comment on above: Performed By: #### C BCA, CMP, 0-3, 92957-5, 1987-10, #### [facility] ([id number]) [address] [place] [address] 22693 GLUCOSE AUDREY Negative Normal NEG [facility] Comment on above: Performed By: #### C BCA, CMP, 0-3, 59575-4, 1987-10, #### [facility] ([id number]) [address] [place] [address] 19157 KETONES AUDREY Negative Normal NEG [facility] Comment on above: Performed By: #### C BCA, CMP, 3040-3, 00926-0, 1987-10, #### [facility] ([id number]) [address] [place] [address] [place] [address] LEUKOCYTE ESTERASE AUDREY Trace Abnormal NEG [facility] Comment on above: Performed By: #### C BCA, CMP, 3040-3, 08978-9, 1987-10, #### [facility] ([id number]) [address] [place] [address] [place] [address] NITRITE AUDREY Negative Normal NEG [facility] Comment on above: Performed By: #### C BCA, CMP, 0-3, 24393-5, 1987-10, #### [facility] ([id number]) [address] [place] [address] 27466 PH AUDREY 6.5 Normal 5.0-8.5 [facility] Comment on above: Performed By: #### C BCA, CMP, 3040-3, 36176-4, 1987-10, #### [facility] ([id number]) [address] [place] [address] 84969 PROTEIN AUDREY Negative Normal NEG [facility] Comment on above: Performed By: #### C BCA, CMP, 3040-3, 33422-2, 1987-10, #### [facility] ([id number]) [address] [place] [address] 98721 SPECIFIC GRAVITY AUDREY 1.010 Normal 1.003-1.035 [facility] Comment on above: Performed By: #### C BCA, CMP, 3040-3, 44103-4, 1987-10, #### [facility] ([id number]) [address] [place] [address] 98507 UROBILINOGEN AUDREY 1.0 eu/dL Normal <1.[address] [facility] Comment on above: Performed By: #### C BCA, CMP, 3040-3, 02396-8, 1987-10, #### [facility] ([id number]) [address] [place] [address] 61112 .Auto Diff - Auto [place] % 5 % Normal 06-24 [facility] Comment on above: Performed By: #### 1 [id number], [id number], [id number], [id number], [id number] ####[facility] (DEFAULT)[address] [place] [address] 86166 Baso Abs# 0.1 x10 Normal 0.0-0.2 [facility] Comment on above: Performed By: #### 1 [id number], [id number], [id number], [id number], [id number] ####[facility] (DEFAULT)[address] [place] [address] 71330 Basophils/100 WBC (Bld) 1.0 % Normal 0.2-2.0 [facility] Comment on above: Performed By: #### 1 [id number], [id number], [id number], [id number], [id number] ####[facility] (DEFAULT)[address] [place] [address] 08933 Eos Abs# 0.0 x10 Normal 0.0-0.4 [facility] Comment on above: Performed By: #### 1 [id number], [id number], [id number], [id number], [id number] ####[facility] (DEFAULT)[address] [place] [address] 35737 Eosinophils/100 WBC (Bld) 0.4 % Low 0.9-4.0 [facility] Comment on above: Performed By: #### 1 [id number], [id number], 89408546, [id number], [id number] ####[facility] (DEFAULT)[address] [place] [address] 59141 Lymph Abs# 1.7 x10 Normal 1.3-2.9 [facility] Comment on above: Performed By: #### 1 [id number], [id number], 22008537, [id number], [id number] ####[facility] (DEFAULT)[address] [place] [address] 18262 Lymphocytes/100 WBC (Bld) 27 % Normal 14-48 [facility] Comment on above: Performed By: #### 1 [id number], [id number], 79060584, [id number], [id number] ####[facility] (DEFAULT)[address] [place] [address] [place] Abs# 0.3 x10 Normal 0.0-0.8 [facility] Comment on above: Performed By: #### 1 [id number], 8292815, 10218095, [id number], [id number] ####[facility] (DEFAULT)[address] [place] [address] Neut Abs# 4.2 x10 Normal 1.5-9.2 [facility] Comment on above: Performed By: #### 1 [id number], 4092487, 12490971, [id number], [id number] ####[facility] (DEFAULT)[address] [place] [address] Neutrophils/100 WBC (Bld) 66 % Normal 44-88 [facility] Comment on above: Performed By: #### 1 [id number], 8368562, 13101714, [id number], [id number] ####[facility] (DEFAULT)[address] [place] [address] CBC w/ Auto Diffon 4 Erythrocyte distribution width (RBC) [Ratio] 20.2 % High 11.5-15.0 [facility] Comment on above: Performed By: #### 1 [id number], 3073386, 25905191, [id number], [id number] ####[facility] (DEFAULT)[address] [place] [address] Hematocrit (Bld) [Volume fraction] 34.5 % Normal 33.7-40.4 [facility] Comment on above: Performed By: #### 1 [id number], 7479144, 48437535, [id number], [id number] ####[facility] (DEFAULT)[address] [place] [address] Hemoglobin (Bld) [Mass/Vol] 10.9 g/dL Low 11.3-15.9 [facility] Comment on above: Performed By: #### 1 [id number], 0983256, 80448076, [id number], [id number] ####[facility] (DEFAULT)[address] [place] [address] Man Diff? Auto Invalid Interpretation Code [facility] Comment on above: Performed By: #### 1 [id number], 4549127, 43558164, [id number], [id number] ####[facility] (DEFAULT)[address] [place] [address] MCH (RBC) [Entitic mass] 23 pg Low 24-34 [facility] Comment on above: Performed By: #### 1 [id number], 6433942, 17634086, 6388320287, [id number] ####[facility] (DEFAULT)[address] [place] [address] 91615 MCHC (RBC) [Mass/Vol] 32 g/dL Normal 26-37 [facility] Comment on above: Performed By: #### 1 [id number], 9892441, 73173960, 9413028120, [id number] ####[facility] (DEFAULT)[address] [place] [address] MCV (RBC) [Entitic vol] 72 fL Low 81-100 [facility] Comment on above: Performed By: #### 1 [id number], 2430684, 89982373, 6128745919, [id number] ####[facility] (DEFAULT)[address] [place] [address] Platelet 457 x10 High 138-427 [facility] Comment on above: Performed By: #### 1 [id number], 3700311, 21000175, 3313357278, [id number] ####[facility] (DEFAULT)[address] [place] [address] Platelet mean volume (Bld) [Entitic vol] 7.5 fL Normal 6.3-10.2 [facility] Comment on above: Performed By: #### 1 [id number], 3526758, 58084253, 4627981425, [id number] ####[facility] (DEFAULT)[address] [place] [address] RBC 4.77 x10 Normal 3.70-5.30 [facility] Comment on above: Performed By: #### 1 [id number], 0757233, 13428104, 0881519788, [id number] ####[facility] (DEFAULT)[address] [place] [address] WBC 6.4 x10 Normal 3.5-10.5 [facility] Comment on above: Performed By: #### 1 [id number], 2450411, 44413837, 8106029319, 3214909533 ####[facility] (DEFAULT)[address] [place] [address] Standardon 06-08-2024 eGFR Non AA >60 Invalid Interpretation Code [facility] Comment on above: Performed By: #### 1 [id number], 9742340, 90270560, 4269177880, 5099411914 ####[facility] (DEFAULT)[address] [place] [address] 66375 eGFR AA >60 Invalid Interpretation Code [facility] Comment on above: Performed By: #### 1 [id number], 8025387, 05682303, 0040788743, [id number] ####[facility] (DEFAULT)[address] [place] [address] 58422 Albumin [Mass/Vol] 4.3 g/dL Normal 3.5-5.0 [facility] Comment on above: Performed By: #### 1 [id number], 8234885, 95567318, 6178582771, 2494337025 ####[facility] (DEFAULT)[address] [place] [address] 35738 Albumin/Globulin [Mass ratio] 1.0 {ratio} Low 1.4-2.6 [facility] Comment on above: Performed By: #### 1 [id number], 8215427, 31276416, 3264600892, 5364854467 ####[facility] (DEFAULT)[address] [place] [address] 33085 Alk Phos 63 IU/L Normal 32-91 [facility] Comment on above: Performed By: #### 1 [id number], 0251093, 47427058, 6778450173, 8610508873 ####[facility] (DEFAULT)[address] [place] [address] 56874 ALT [Catalytic activity/Vol] 30.0 U/L Normal 14.0-54.0 [facility] Comment on above: Performed By: #### 1 189880038, 2547604, 41757597, 7442791245, 0775289409 ####[facility] (DEFAULT)[address] [place] [address] 91249 Anion gap [Moles/Vol] 12.9 mmol/L Normal 5.0-19.0 [facility] Comment on above: Performed By: #### 1 324741154, 4839889, 89670836, 2728711518, 2500285956 ####[facility] (DEFAULT)[address] [place] [address] 68930 AST [Catalytic activity/Vol] 22 U/L Normal 15-41 [facility] Comment on above: Performed By: #### 1 063080288, 1536201, 23735815, 7855996116, 8232229969 ####[facility] (DEFAULT)[address] [place] [address] 79648 Bili Total 0.5 mg/dL Normal 0.3-1.2 [facility] Comment on above: Performed By: #### 1 775056896, 6841316, 27370919, 7447749927, 3313555429 ####[facility] (DEFAULT)[address] [place] [address] 08019 Calcium [Mass/Vol] 9.3 mg/dL Normal 8.9-10.3 [facility] Comment on above: Performed By: #### 1 569735847, 8151442, 71759800, 8741150255, 5590563165 ####[facility] (DEFAULT)[address] [place] [address] 17327 Chloride [Moles/Vol] 106 mmol/L Normal 101-111 [facility] Comment on above: Performed By: #### 1 287569409, 5538064, 74319073, 0080869357, 8323067530 ####[facility] (DEFAULT)[address] [place] [address] 19741 CO2 [Moles/Vol] 22 mmol/L Normal 21-32 [facility] Comment on above: Performed By: #### 1 142095843, 8626307, 06285254, 0750051983, 0933604297 ####[facility] (DEFAULT)[address] [place] [address] 56689 Creatinine [Mass/Vol] 0.70 mg/dL Normal 0.60-1.30 [facility] Comment on above: Performed By: #### 1 729454285, 8234952, 70248339, 9482046076, 7106056345 ####[facility] (DEFAULT)[address] [place] [address] 50339 Globulin (S) [Mass/Vol] 4.0 g/dL Normal 1.5-4.3 [facility] Comment on above: Performed By: #### 1 975429802, 8673577, 76442051, 6260899690, 6138201339 ####[facility] (DEFAULT)[address] [place] [address] 74900 Glucose [Mass/Vol] 109.0 mg/dL Normal 74.0-118.0 [facility] Comment on above: Performed By: #### 1 [id number], 6960157, 87835279, 8370399127, 7051311721 ####[facility] (DEFAULT)[address] [place] [address] 43939 Osmolality 272 mOsm/L Invalid Interpretation Code [facility] Comment on above: Performed By: #### 1 [id number], 8900018, 32557839, 0457547569, 2100453948 ####[facility] (DEFAULT)[address] [place] [address] 58091 Potassium [Moles/Vol] 3.9 mmol/L Normal 3.6-5.1 [facility] Comment on above: Performed By: #### 1 276145850, 4229044, 47441715, 4652255659, 4968908190 ####[facility] (DEFAULT)[address] [place] [address] 85216 Protein [Mass/Vol] 8.3 g/dL High 6.5-8.1 [facility] Comment on above: Performed By: #### 1 386618425, 5919680, 60068927, 8788441762, 6272809573 ####[facility] (DEFAULT)[address] [place] [address] 47981 Sodium [Moles/Vol] 137.0 mmol/L Normal 136.0-144.0 [facility] Comment on above: Performed By: #### 1 522687740, 6716178, 43766867, 3836998805, 5758878884 ####[facility] (DEFAULT)[address] [place] [address] Urea nitrogen [Mass/Vol] 7 mg/dL Low - [facility] Comment on above: Performed By: #### 1 872228876, 3991249, 75486140, 5424081104, 4142911275 ####[facility] (DEFAULT)[address] [place] [address] Urea nitrogen/Creatinine [Mass ratio] 10.0 mg/mg Normal 4.6-16.2 [facility] Comment on above: Performed By: #### 1 929002477, 9328123, 45546282, 2733134180, 2089061744 ####[facility] (DEFAULT)[address] [place] [address] CT Abdomen/Pelvis w/ Contras ton 06-08-2024 CT [...] not been removed. Final Dictated by: Flo Infnate MD Dictated DT/TM: 06/08/24 9:30 Signed (Electronic Signature): Flo Infante MD 06/08/24 9:36 pm Technologist: PREMA [facility] Clinical Summaryon 2023 ED Clinical Summary [facility] Emergency Department [address] [place] [address] ED Clinical Summary PERSON INFORMATION Name: ANTONIA NOYOLA Age: 39 Years Sex: FEMALE : 1985 MRN: Acct#: Visit Reason: Flank pain; Abdominal pain; ABDOMINAL PAIN Arrival: 06/08/2024 17:53:36 Discharge: 06/08/2024 22:16:00 LOS: 000 04:23 Check In: 06/08/2024 17:53:36 Checkout:06/08/2024 22:16:00 Address: [address] [place] [address] [place] [address] PCP: Provider, None PROVIDER INFORMATION Provider Role Assigned Unassigned Jasmyn Magana MD ED Provider 06/08/2024 18:36:34 Kendra Tobar VETERINARY MEDICINE DOCTOR Nurse 06/08/2024 18:45:19 Radha Shabazz VETERINARY MEDICINE DOCTOR Nurse 06/08/2024 19:29:52 Sandeep Corea MD ED [...] er verbalizes understanding of instructions given Comment: [facility] ED Patient Summaryon 024 ED Patient Summary [facility] - Emergency Department [address] [place] [address] PATIENT DISCHARGE INSTRUCTIONS Patient Information Name: ANTONAI NOYOLA Age: 39 Years Date of : 1985 Reason For Visit: Flank pain; Abdominal pain; ABDOMINAL PAIN Arrival Time: 06/08/2024 17:53:36 Primary Care Physician: Provider, None Attending Physician: Jasmyn Magana MD Comment: Visit Diagnosis: Diagnoses This Visit Abdominal pain ([id number]) Abdominal pain (R10.9) Abdominal pain in female patient (R10.9) Flank pain ([id number]) The Pharmacy at [facility] is open Tuesday through Tuesday from [...] alcohol and/or drug addiction problems; contact the [facility] 03/01 Crisis Hotline -Text 9SEME gs [phone]. If you received any narcotics, sedation, or [...] and treatment you received today in the [facility] Emergency Department were for an urgent problem and are not intended as complete care. It is important for you to follow up with a doctor, nurse practitioner, or physician?s chef assistant for ongoing care. If your symptoms [...] so we can reach you if necessary. [facility] Emergency Department has provided you with a complete list of medications post discharge. Please inform your health professional/provider of your visit and for further instruction [...] found Patient Education Endometriosis Follow-up with your ASSISTED LIVING ADMINISTRATOR to review this emergency department visit and [...] bleeding during menstrual (more content not included)... [facility] Extra Redon 06-08-2024 Tube Collected Yes Invalid Interpretation Code [facility] Comment on above: Performed By: #### 1 [id number], 3197745, 21462858, 4693049824, [id number] ####[facility] (DEFAULT)[address] [place], [place] [address] Test Urine 1on U Preg Negative [facility] Comment on above: Performed By: #### 1 [id number], [id number] #### [facility] (DEFAULT) [address] [place] [address] 13924 U Preg Internal Control Pass [facility] Comment on above: Performed By: #### 1 [id number], [id number] #### [facility] (DEFAULT) [address] [place] [address] 38375 Progress Note - Nurseon 05-14 Progress Note [...] on: 06/08/2024 22:16 EST] Radha Shabazz RN [facility] UA w Culture if Ind Standard on 06-08-2024 Breakpoint UA [facility] Comment on above: Performed By: #### 1 [id number], [id number] #### [facility] (DEFAULT) [address] [place] [address] 37686 Color (U) Straw [facility] Comment on above: Performed By: #### 1 [id number], [id number] #### [facility] (DEFAULT) [address] [place] [address] 03878 Culture? Not Indicated Invalid Interpretation Code [facility] Comment on above: Result Comment: Resu lt created by rule GL_MAGR_ADD_UA_CULT1 Result created by rule GL_MAGR_ADD_UA_CULT1 Performed By: #### 1 [id number], [id number] #### [facility] (DEFAULT) [address] [place] [address] Glucose (U) [Mass/Vol] Negative [facility] Comment on above: Performed By: #### 1 [id number], [id number] #### [facility] (DEFAULT) [address] [place] [address] 68830 Ketones Ql (U) Negative [facility] Comment on above: Performed By: #### 1 [id number], [id number] #### [facility] (DEFAULT) [address] [place] [address] 92694 Micro? Not Indicated Invalid Interpretation Code [facility] Comment on above: Result Comment: Resu lt created by rule GL_MAGR_ADD_UA_MICRO Result created by rule GL_MAGR_ADD_UA_MICRO Performed By: #### 1 [id number], [id number] #### [facility] (DEFAULT) [address] [place] [address] 76527 UA Bilirubin Negative [facility] Comment on above: Performed By: #### 1 [id number], 347501891 #### [facility] (DEFAULT) [address] [place] [address] 93166 UA Blood Negative Normal [facility] Comment on above: Performed By: #### 1 [id number], [id number] #### [facility] (DEFAULT) [address] [place] [address] 69030 UA Clarity CLEAR Normal CLEAR [facility] Comment on above: Performed By: #### 1 [id number], 800712498 #### [facility] (DEFAULT) [address] [place] [address] 09812 UA Leuk Est Negative Normal NEGATIVE [facility] Comment on above: Performed By: #### 1 [id number], 066606142 #### [facility] (DEFAULT) [address] [place] [address] 03410 UA Nitrite Negative Normal NEGATIVE [facility] Comment on above: Performed By: #### 1 [id number], [id number] #### [facility] (DEFAULT) [address] [place] [address] 81650 UA pH 7.0 Normal 5-8 [facility] Comment on above: Performed By: #### 1 [id number], [id number] #### [facility] (DEFAULT) [address] [place] [address] 60381 UA Protein Negative Normal NEGATIVE [facility] Comment on above: Performed By: #### 1 [id number], [id number] #### [facility] (DEFAULT) [address] [place] [address] 44650 UA Spec Grav <=1.005 Normal 1.001-1.035 [facility] Comment on above: Performed By: #### 1 [id number], 706881229 #### [facility] (DEFAULT) [address] [place] [address] 14759 UA Urobilinogen 0.2 mg/dL Normal 0.2-1.0 [facility] Comment on above: Performed By: #### 1 [id number], [id number] #### [facility] (DEFAULT) [address] [place] [address] 36148 Urine Source Clean Catch Normal [facility] Comment on above: Performed By: #### 1 [id number], [id number] #### [facility] (DEFAULT) [address] [place] [address] 58099 CBC AND AUTO DIFFon 12-24-20 24 ABSOLUTE BASOPHIL 0.1 X10E9/L Normal 0.0-0.2 [place] Comment on above: Performed By: #### C BCA, CMP, 3040-3, 51322-4, 1985-10, #### [facility] ([id number]) [address] [place] [address] 76948 ABSOLUTE NEUTROPHIL 4.9 X10E9/L Normal 1.5-6.6 [facility] Comment on above: Performed By: #### C BCA, CMP, 0-3, 96742-0, 1987-10, #### [facility] ([id number]) [address] [place] [address] 18050 Basophils/100 WBC (Bld) 0.9 % Normal [facility] Comment on above: Performed By: #### C BCA, CMP, 0-3, , 1987-10, #### [facility] ([id number]) [address] [place] [address] 51352 Eosinophils (Bld) [#/Vol] 0.1 10*3/uL Normal 0.0-0.4 [facility] Comment on above: Performed By: #### C BCA, CMP, 0-3, , 1987-10, #### [facility] ([id number]) [address] [place] [address] 14047 Eosinophils/100 WBC (Bld) 0.7 % Normal [facility] Comment on above: Performed By: #### C BCA, CMP, 3040-3, 75729-5, 1987-10, #### [facility] ([id number]) [address] [place] [address] 36066 Erythrocyte distribution width (RBC) [Ratio] 19.6 % High 11.5-15.0 [facility] Comment on above: Performed By: #### C BCA, CMP, 3040-3, 47443-1, 1987-10, #### [facility] ([id number]) [address] [place] [address] 05159 Hematocrit (Bld) [Volume fraction] 35.6 % Normal 35-47 [facility] Comment on above: Performed By: #### C STEVE JOE, 0-3, , 1985-10, #### [facility] ([id number]) [address] [place] [address] 78367 Hemoglobin (Bld) [Mass/Vol] 11.2 g/dL Low 11.7-15.5 [facility] Comment on above: Performed By: #### C HEATH [facility], 3039-, , 1985-10, #### [facility] ([id number]) [address] [place] [address] 81975 Lymphocytes (Bld) [#/Vol] 2.5 10*3/uL Normal 1.0-3.5 [facility] Comment on above: Performed By: #### C HEATH [facility], 3039-3, , 1987-10, #### [facility] ([id number]) [address] [place] [address] 40440 Lymphocytes/100 WBC (Bld) 31.5 % Normal [facility] Comment on above: Performed By: #### Leila JOE, [facility], 3039-3, , 1987-10, #### [facility] ([id number]) [address] [place] [address] 64049 MCH (RBC) [Entitic mass] 22.7 pg Low 27-34 [facility] Comment on above: Performed By: #### Leila JOE, CMP, 0-3, , 1987-10, #### [facility] ([id number]) [address] [place] [address] 51385 MCHC (RBC) [Mass/Vol] 31.4 g/dL Low 32-36 [facility] Comment on above: Performed By: #### C BCA, CMP, 3040-3, 25974-6, 1987-10, #### [facility] ([id number]) [address] [place] [address] 07824 MCV (RBC) [Entitic vol] 72 fL Low 80-100 [facility] Comment on above: Performed By: #### C BCA, CMP, 3040-3, 30475-9, 1987-10, #### [facility] ([id number]) [address] [place] [address] 80573 Monocytes (Bld) [#/Vol] 0.4 10*3/uL Normal 0-0.9 [facility] Comment on above: Performed By: #### C BCA, CMP, 0-3, , 1987-10, #### [facility] ([id number]) [address] [place] [address] 73825 Monocytes/100 WBC (Bld) 5.4 % Normal [facility] Comment on above: Performed By: #### C BCA, CMP, 3040-3, 54372-1, 1987-10, #### [facility] ([id number]) [address] [place] [address] 53149 Neutrophils/100 WBC (Bld) 61.5 % Normal [facility] Comment on above: Performed By: #### C BCA, CMP, 3040-3, 67856-6, 1987-10, #### [facility] ([id number]) [address] [place] [address] 70173 Platelet mean volume (Bld) [Entitic vol] 7.7 fL Normal 7-12 [facility] Comment on above: Performed By: #### C BCA, CMP, 3040-3, 31050-1, 1987-10, #### [facility] ([id number]) [address] [place] [address] 80681 Platelets (Bld) [#/Vol] 451 10*3/uL High 150-450 [facility] Comment on above: Performed By: #### C BCA, CMP, 3040-3, 24624-5, 1987-10, #### [facility] ([id number]) [address] [place] [address] 20667 RBC COUNT 4.93 X10E12/L Normal 3.80-5.20 [facility] Comment on above: Performed By: #### C BCA, CMP, 3040-3, 51118-6, 1987-10, #### [facility] ([id number]) [address] [place] [address] 67625 WBC (Bld) [#/Vol] 8.0 10*3/uL Normal 4.0-11.0 [place] Comment on above: Performed By: #### C BCA, CMP, 3040-3, 27766-0, 1987-10, #### [facility] ([id number]) [address] [place] [address] 51185 COMPREHENSIVE METABOLIC PANE Van 06-05-2024 Albumin [Mass/Vol] 4.6 g/dL Normal 3.2-5.3 [facility] Comment on above: Performed By: #### C BCA, CMP, 3040-3, 21050-6, 1987-10, #### [facility] ([id number]) [address] [place] [address] 43087 ALP [Catalytic activity/Vol] 67 U/L Normal 39-130 [facility] Comment on above: Performed By: #### C BCA, CMP, 3040-3, 73063-0, 1987-10, #### [facility] ([id number]) [address] [place] [address] 70135 ALT [Catalytic activity/Vol] 14 U/L Normal 0-31 [facility] Comment on above: Performed By: #### C BCA, CMP, 3040-3, 23169-6, 1987-10, #### [facility] ([id number]) [address] [place] [address] 83557 Anion gap [Moles/Vol] 13 mmol/L Normal 5-15 [facility] Comment on above: Performed By: #### C BCA, CMP, 3040-3, 73197-7, 1987-10, #### [facility] ([id number]) [address] [place] [address] 97828 AST [Catalytic activity/Vol] 19 U/L Normal 0-41 [facility] Comment on above: Performed By: #### C BCA, CMP, 3040-3, 13103-2, 1987-10, #### [facility] ([id number]) [address] [place] [address] 88965 Bilirubin [Mass/Vol] 0.3 mg/dL Normal 0.3-1.2 [facility] Comment on above: Performed By: #### C BCA, CMP, 3040-3, 83376-3, 1987-10, #### [facility] ([id number]) [address] [place] [address] 12749 Calcium [Mass/Vol] 10.0 mg/dL Normal 8.5-10.5 [place] Comment on above: Performed By: #### C BCA, CMP, 3040-3, 82864-4, 1987-10, #### [facility] ([id number]) [address] [place] [address] 32135 Chloride [Moles/Vol] 105 mmol/L Normal 98-109 [facility] Comment on above: Performed By: #### C STEVE JOE, 0-3, 51024-8, 1987-10, #### [facility] ([id number]) [address] [place] [address] 21851 CO2 [Moles/Vol] 21 mmol/L Low 22-32 [facility] Comment on above: Performed By: #### C STEVE JOE, 3039-3, , 1987-10, #### [facility] ([id number]) [address] [place] [address] 14725 Creatinine [Mass/Vol] 0.97 mg/dL Normal 0.40-1.00 [facility] Comment on above: Result Comment: METH OD TRACEABLE TO IDMS STANDARD Performed By: #### C STEVE JOE, 3039-08, , 1987-10, #### [facility] ([id number]) [address] [place] [address] 59040 GFR/1.73 sq M.predicted among non-blacks MDRD (S/P/Bld) [Vol rate/Area] 77 mL/min/{1.73_m2} Normal >59 [facility] Comment on above: Result Comment: Reported eGFR is based on the CKD-EPI 2020 equation that does not use a race coefficient. Performed By: #### C STEVE JOE, 3039-3, , 1987-10, #### [facility] ([id number]) [address] [place] [id number] Glucose [Mass/Vol] 98 mg/dL Normal 65-99 [place] Comment on above: Performed By: #### C STEVE JOE, 3039-3, , 1987-10, #### [facility] ([id number]) [address] [place] [address]47 Potassium [Moles/Vol] 3.7 mmol/L Normal 3.5-5.0 [facility] Comment on above: Performed By: #### C BCA, CMP, 3040-3, 05496-6, 1987-10, #### [facility] ([id number]) [address] [place] [address] Protein [Mass/Vol] 8.3 g/dL High 6.0-8.0 [place] Comment on above: Performed By: #### C BCA, CMP, 3040-3, 06743-6, 1987-10, #### [facility] ([id number]) [address] [place] [address] Sodium [Moles/Vol] 139 mmol/L Normal 134-146 [place] Comment on above: Performed By: #### C BCA, CMP, 3040-3, 78606-1, 1987-10, #### [facility] ([id number]) [address] [place] [address] Urea nitrogen [Mass/Vol] 11 mg/dL Normal 5-23 [facility] Comment on above: Performed By: #### C BCA, CMP, 3040-3, 96920-3, 1987-10, #### [facility] ([id number]) [address] [place] [address] [id number] [address] ABDOMEN AND PELVIS W CONT on [...] Lang MD on 06/05/2024 8:30 PM Normal [facility] HCG ( test) Ql (U)o n 06-05-2024 Beta HCG ( test) Ql (U) Negative Normal NEG [facility] Comment on above: Performed By: #### C STEVE JOE, 0-3, , 1985-10, #### [facility] ([id number]) [address] [place] [address] 6101[address] LIPASEon 06-05-2024 Lipase [Catalytic activity/Vol] 44 U/L High 17-40 [facility] Comment on above: Performed By: #### C STEVE JOE, 0-3, , 1985-10, #### [facility] ([id number]) [address] [place] [address] 64528 URN MACROSCOPIC NURon 2023 BILIRUBIN AUDREY Negative Normal NEG [facility] Comment on above: Performed By: #### C STEVE JOE, 3040-3, , 1985-10, #### [facility] ([id number]) [address] [place] [address] 86721 BLOOD/HGB AUDREY Negative Normal NEG [facility] Comment on above: Performed By: #### C STEVE JOE, 3040-3, 16793-6, 1985-10, #### [facility] ([id number]) [address] [place] [address] 90291 GLUCOSE AUDREY Negative Normal NEG [facility] Comment on above: Performed By: #### C BCA, CMP, 3040-3, 57136-4, 1987-10, #### [facility] ([id number]) [address] [place] [address] 94034 KETONES AUDREY Negative Normal NEG [facility] Comment on above: Performed By: #### C BCA, CMP, 3040-3, 21505-9, 1987-10, #### [facility] ([id number]) [address] [place] [address] 68345 LEUKOCYTE ESTERASE AUDREY Negative Normal NEG [facility] Comment on above: Performed By: #### C BCA, CMP, 3040-3, 36056-1, 1987-10, #### [facility] ([id number]) [address] [place] [address] 76085 NITRITE AUDREY Negative Normal NEG [facility] Comment on above: Performed By: #### C BCA, CMP, 3040-3, 98081-6, 1987-10, #### [facility] ([id number]) [address] [place] [address] 56412 PH AUDREY 7.0 Normal 5.0-8.5 [facility] Comment on above: Performed By: #### C BCA, CMP, 3040-3, 25513-7, 1987-10, #### [facility] ([id number]) [address] [place] [address] [place] [address] PROTEIN AUDREY Negative Normal NEG [facility] Comment on above: Performed By: #### C BCA, CMP, 3040-3, 13555-3, 1987-10, #### [facility] ([id number]) [address] [place] [address], [place] [address] SPECIFIC GRAVITY AUDREY 1.015 Normal 1.003-1.035 [facility] Comment on above: Performed By: #### C BCA, CMP, 3040-3, 29297-6, 1987-10, #### [facility] ([id number]) [address] [place] [address] 73726 UROBILINOGEN AUDREY 1.0 eu/dL Normal <1.1 [facility] Comment on above: Performed By: #### C BCA, CMP, 3040-3, 30178-0, 1987-10, #### [facility] ([id number]) [address] [place] [address]22 CBC with Diffon 05-28-2024 Morphology Edson (Bld) [Interp] SLIGHT Normal [facility] Comment on above: Result Comment: MICR OCYTOSIS Performed By: #### C P, CDP #### [facility] [address] [place], [place] [address] Geophysical Data Technician: Jennifer Freire MD Urinalysis, Routineon 2023 Bilirubin, SemiQt,Ur Negative Normal NEG [facility] Comment on above: Performed By: #### U A, UMICAO #### [facility] [address] [place], [place] [phone] Geophysical Data Technician: Jennifer Freire MD Blood, Urine TRACE Abnormal NEG [facility] Comment on above: Performed By: #### U A, UMICAO #### [facility] [address] [place] [address] Geophysical Data Technician: Jennifer Freire MD Clarity (U) Clear Normal CLEAR [facility] Comment on above: Performed By: #### U A, UMICAO #### [facility] [address] [place] [address] Geophysical Data Technician: Jennifer Freire MD Color (U) Yellow Normal YEL [facility] Comment on above: Performed By: #### U A, UMICAO #### [facility] [address] [place] [address] Geophysical Data Technician: Jennifer Freire MD Comment Normal [facility] Comment on above: Performed By: #### U A, UMICAO #### [facility] [address] [place] [address] Geophysical Data Technician: Jennifer Freire MD Glucose Ql (U) Negative Normal NEG [facility] Comment on above: Performed By: #### U A, UMICAO #### [facility] [address] [place] [address] Geophysical Data Technician: Jennifer Freire MD Ketones Ql (U) Negative Normal NEG [facility] Comment on above: Performed By: #### U A, UMICAO #### [facility] [address] [place] [address] Geophysical Data Technician: Jennifer Freire MD Leukocyte esterase Test strip Ql (U) Negative Normal NEG [facility] Comment on above: Performed By: #### U A, UMICAO #### [facility] [address] [place] [address] Geophysical Data Technician: Jennifer Freire MD Nitrite,Ur Negative Normal NEG [facility] Comment on above: Performed By: #### U A, UMICAO #### [facility] [address] [place] [address] Geophysical Data Technician: Jennifer Freire MD PH,Ur 7.0 Normal 5.0-8.0 [facility] Comment on above: Performed By: #### U A, UMICAO #### [facility] [address] [facility] [place] [phone] Geophysical Data Technician: Jennifer Freire MD Protein Ql (U) Negative Normal NEG [facility] Comment on above: Performed By: #### U A, UMICAO #### [facility] [address] [place] [address] Geophysical Data Technician: Jennifer Freire MD Spec. [place],Ur 1.010 Normal 1.005-1.030 [facility] Comment on above: Performed By: #### U A, UMICAO #### [facility] [address] [place] [address] Geophysical Data Technician: Jennifer Freire MD Urobilinogen,Ur Normal Normal 0.0-1.0 [facility] Comment on above: Performed By: #### U A, UMICAO #### [facility] [address] [place] [address] Geophysical Data Technician: Jennifer Freire MD Urinalysis,Microon ----- Normal [facility] Comment on above: Performed By: #### U A, UMICAO #### [facility] [address] [place] [address] Geophysical Data Technician: Jennifer Freire MD Urine RBC's 2 TO 5 Normal 0-2 [facility] Comment on above: Performed By: #### U A, UMICAO #### [facility] [address] [place] [address] Geophysical Data Technician: Jennifer Freire MD Urine WBC's None Seen Normal 0 [facility] Comment on above: Performed By: #### U A, UMICAO #### [facility] [address] [place] [address] Geophysical Data Technician: Jennifer Freire MD CBC with Diffon 05-27-2024 Abs. Basophil 0.03 k/uL Normal 0.00-0.20 [facility] Comment on above: Performed By: #### C P, CDP #### [facility] [address] [place] [phone] Geophysical Data Technician: Jennifer Freire MD Abs.Imm.Granulocyte 0.01 k/uL Normal 0.00-0.30 [facility] Comment on above: Performed By: #### C P, CDP #### [facility] [address] [place] [phone] Geophysical Data Technician: Jennifer Freire MD Abs.Neutrophil (Seg) 4.33 k/uL Normal 2.5-7.0 [facility] Comment on above: Performed By: #### C P, CDP #### [facility] [address] [place] [address] Geophysical Data Technician: Jennifer Freire MD Basophils/100 WBC (Bld) 0 % Normal 0-2 [facility] Comment on above: Performed By: #### C P, CDP #### [facility] [address] [place] [phone] Geophysical Data Technician: Jennifer Freire MD Eosinophils (Bld) [#/Vol] 0.08 10*3/uL Normal 0.00-0.40 [facility] Comment on above: Performed By: #### C P, CDP #### [facility] [address] [place] [phone] Geophysical Data Technician: Jennifer Freire MD Eosinophils/100 WBC (Bld) 1 % Normal 0-5 [facility] Comment on above: Performed By: #### C P, CDP #### [facility] [address] [place] [phone] Geophysical Data Technician: Jennifer Freire MD Erythrocyte distribution width (RBC) [Ratio] 17.2 % High 12.1-15.2 [facility] Comment on above: Performed By: #### C P, CDP #### [facility] [address] [place] [phone] Geophysical Data Technician: Jennifer Freire MD Hematocrit (Bld) [Volume fraction] 36.4 % Normal 36.0-46.0 [facility] Comment on above: Performed By: #### C P, CDP #### [facility] [address] [place] [address] Geophysical Data Technician: Jennifer Freire MD Hemoglobin (Bld) [Mass/Vol] 11.4 g/dL Low 12.0-16.0 [facility] Comment on above: Performed By: #### C P, CDP #### [facility] [address] [place] [address] Geophysical Data Technician: Jennifer Freire MD Immature granulocytes/100 WBC (Bld) 0 % Normal 0-5 [facility] Comment on above: Performed By: #### C P, CDP #### [facility] [address] [place] [address] Geophysical Data Technician: Jennifer Freire MD Lymphocytes (Bld) [#/Vol] 3.24 10*3/uL Normal 1.00-4.80 [facility] Comment on above: Performed By: #### C P, CDP #### [facility] [address] [place] [address] Geophysical Data Technician: Jennifer Freire MD Lymphocytes/100 WBC (Bld) 40 % Normal 15-40 [facility] Comment on above: Performed By: #### C P, CDP #### [facility] [address] [place] [address] Geophysical Data Technician: Jennifer Freire MD MCH (RBC) [Entitic mass] 22.6 pg Low 26.0-34.0 [facility] Comment on above: Performed By: #### C P, CDP #### [facility] [address] [place] [address] Geophysical Data Technician: Jennifer Freire MD MCHC (RBC) [Mass/Vol] 31.3 g/dL Normal 31.0-37.0 [facility] Comment on above: Performed By: #### C P, CDP #### [facility] [address], [place] [phone] Geophysical Data Technician: Jennifer Freire MD MCV (RBC) [Entitic vol] 72.2 fL Low 80.0-100.0 M [facility] Comment on above: Performed By: #### C P, CDP #### [facility] [address] [place] [address] Geophysical Data Technician: Jennifer Freire MD Monocytes (Bld) [#/Vol] 0.51 10*3/uL Normal 0.00-1.00 [facility] Comment on above: Performed By: #### C P, CDP #### [facility] [address] [place] [address] Geophysical Data Technician: Jennifer Freire MD Monocytes/100 WBC (Bld) 6 % Normal 4-8 M [facility] Comment on above: Performed By: #### C P, CDP #### [facility] [address] [place] [address] Geophysical Data Technician: Jennifer Freire MD Neutrophil (Seg) 53 % Normal 47-75 [facility] Comment on above: Performed By: #### C P, CDP #### [facility] [address], [place] 3707[address] Geophysical Data Technician: Jennifer Freire MD Platelet mean volume (Bld) [Entitic vol] 9.3 fL Normal 6.0-12.0 [facility] Comment on above: Performed By: #### C P, CDP #### [facility] [address] [place] [address] Geophysical Data Technician: Jennifer Freire MD Platelets (Bld) [#/Vol] 583 10*3/uL High 140-450 [facility] Comment on above: Performed By: #### C P, CDP #### [facility] [address], [place] [phone] (532) Geophysical Data Technician: Jennifer Freire MD RBC (Bld) [#/Vol] 5.04 10*6/uL Normal 4.00-5.20 [facility] Comment on above: Performed By: #### C P, CDP #### [facility] [address], [place] [phone] ([phone]) Geophysical Data Technician: Jennifer Freire MD WBC (Bld) [#/Vol] 8.2 10*3/uL Normal 3.5-11.0 [facility] Comment on above: Performed By: #### C P, CDP #### [facility] [address], [place] [phone] (291) Geophysical Data Technician: Jennifer Freire MD Comp Metabolic Profon 2023 Albumin [Mass/Vol] 4.7 g/dL Normal 3.5-5.2 [facility] Comment on above: Performed By: #### C P, CDP #### [facility] [address], [place] [phone] ([phone]) Geophysical Data Technician: Jennifer Freire MD Alkaline Phos 92 U/L Normal 35-104 [facility] Comment on above: Performed By: #### C P, CDP #### [facility] [address] [place] [address] Geophysical Data Technician: Jennifer Freire MD ALT [Catalytic activity/Vol] 16 U/L Normal 5-33 [facility] Comment on above: Performed By: #### C P, CDP #### [facility] [address], [place] [phone] ([phone]) Geophysical Data Technician: Jennifer Freire MD Anion gap [Moles/Vol] 14 mmol/L Normal 9-17 [facility] Comment on above: Performed By: #### C P, CDP #### [facility] [address], [place] [phone] ([phone]) Geophysical Data Technician: Jennifer Freire MD AST [Catalytic activity/Vol] 17 U/L Normal <32 [facility] Comment on above: Performed By: #### C P, CDP #### [facility] [address], [place] [address] Geophysical Data Technician: Jennifer Freire MD Bilirubin [Mass/Vol] 0.2 mg/dL Low 0.3-1.2 [facility] Comment on above: Performed By: #### C P, CDP #### [facility] [address] [place] [address] Geophysical Data Technician: Jennifer Freire MD BUN/CRE Ratio 9 Normal 9-20 [facility] Comment on above: Performed By: #### C P, CDP #### [facility] [address], [place] [phone] Geophysical Data Technician: Jennifer Freire MD Calcium [Mass/Vol] 9.9 mg/dL Normal 8.6-10.4 [facility] Comment on above: Performed By: #### C P, CDP #### [facility] [address], [place] [phone] Geophysical Data Technician: Jennifer Freire MD Chloride [Moles/Vol] 106 mmol/L Normal 98-107 [facility] Comment on above: Performed By: #### C P, CDP #### [facility] [address] [place] [address] Geophysical Data Technician: Jennifer Freire MD CO2 [Moles/Vol] 22 mmol/L Normal 20-31 [facility] Comment on above: Performed By: #### C P, CDP #### [facility] [address] [place] [address] Geophysical Data Technician: Jennifer Freire MD Creatinine [Mass/Vol] 0.8 mg/dL Normal 0.5-0.9 [facility] Comment on above: Performed By: #### C P, CDP #### [facility] [address], [place] 0245[address] Geophysical Data Technician: Jennifer Freire MD GFR/1.73 sq M.predicted among non-blacks MDRD (S/P/Bld) [Vol rate/Area] mL/min/{1.73_m2} Normal >60 [facility] Comment on above: Result Comment: These [...] Performed By: #### C P, CDP #### [facility] [address] [place] [address] Geophysical Data Technician: Jennifer Freire MD Glucose [Mass/Vol] 93 mg/dL Normal 70-99 [facility] Comment on above: Performed By: #### C P, CDP #### [facility] [address], [place] [address]197[address] Geophysical Data Technician: Jennifer Freire MD Potassium [Moles/Vol] 3.7 mmol/L Normal 3.7-5.3 [facility] Comment on above: Performed By: #### C P, CDP #### [facility] [address], [place] 02312[address] Geophysical Data Technician: Jennifer Freire MD Protein [Mass/Vol] 8.3 g/dL Normal 6.4-8.3 [facility] Comment on above: Performed By: #### C P, CDP #### [facility] [address] [place] [address] Geophysical Data Technician: Jennifer Freire MD Sodium [Moles/Vol] 142 mmol/L Normal 135-144 [facility] Comment on above: Performed By: #### C P, CDP #### [facility] [address], [place] 63420[address] Geophysical Data Technician: Jennifer Freire MD Urea nitrogen [Mass/Vol] 7 mg/dL Normal 6-20 [facility] Comment on above: Performed By: #### C P, CDP #### [facility] [address] [place] [address] Geophysical Data Technician: Jennifer Freire MD Surgical Pathologyon 024 Surgical Pathology Normal [facility] Comment on above: Result Comment: [facility] [address] [place] [address] Surgical Pathology Consultation Patient Name:ANTONIA NOYOLA:1985 (Age: 39)Gender:FTaken:4Reported:04/17/2024hysician(s):Adiel Aparicio M.D. ([phone])Copy To: Rec. #:[id number]: #[id number] Final Pathologic Diagnosis Uterus, cervix, bilateral fallopian tubes, and bilateral ovaries, TAHBSO: Cervix, negative for dysplasia Inactive endometrium with benign endometrial polyp Bilateral ovaries with endometriosis/endometrioma Unremarkable fallopian tubes Report Electronically Signed Out k/04/17/2024Evelin Joshi MD Interpretation performed at [email or web address], [address] [place] [address], License number: [id number]. Clinical History Endometriosis/ pelvic pain. Gross Description [...] entirely filled with red-brown, hemorrhagic turbid fluid [employer] sections are submitted in cassettes A-L, as: A anterior cervix B posterior cervix C anterior uterine wall D anterior endomyometrium E posterior uterine wall with whirled nodule F posterior endomyometrium G right fallopian tube with entire fimbriated end H-I right ovary J left fallopian tube with entire fimbriated end K-L left ovary (12, ss, [id number], m6) mxw/04/06/2024[facility] Specimen(s) Received Uterus, cervix, bilateral fallopian tubes, and bilateral ovaries Fee Codes(s): 1; 78155 CBC AND AUTO DIFFon 10-24-20 24 ABSOLUTE BASOPHIL 0.1 X10E9/L Normal 0.0-0.2 [facility] Comment on above: Performed By: #### 2 106-3 #### [facility] ([id number]) [address] [place] [address] 32021 ABSOLUTE NEUTROPHIL 4.5 X10E9/L Normal 1.5-6.6 [facility] Comment on above: Performed By: #### 2 106-3 #### [facility] ([id number]) [address] [place] [address] 83950 Basophils/100 WBC (Bld) 1.1 % Normal [facility] Comment on above: Performed By: #### 2 106-3 #### [facility] ([id number]) [address] [place] [address] 33368 Eosinophils (Bld) [#/Vol] 0.0 10*3/uL Normal 0.0-0.4 [facility] Comment on above: Performed By: #### 2 106-3 #### [facility] ([id number]) [address] [place] [address] 91694 Eosinophils/100 WBC (Bld) 0.5 % Normal [facility] Comment on above: Performed By: #### 2 106-3 #### [facility] ([id number]) [address] [place] [address] 52422 Erythrocyte distribution width (RBC) [Ratio] 18.3 % High 11.5-15.0 [facility] Comment on above: Performed By: #### 2 106-3 #### [facility] ([id number]) [address] [place] [address] 89087 Hematocrit (Bld) [Volume fraction] 32.1 % Low 35-47 [facility] Comment on above: Performed By: #### 2 106-3 #### [facility] ([id number]) [address] [place] [address] 11774 Hemoglobin (Bld) [Mass/Vol] 10.2 g/dL Low 11.7-15.5 [facility] Comment on above: Performed By: #### 2 106-3 #### [facility] ([id number]) [address] [place] [address] 98130 Lymphocytes (Bld) [#/Vol] 2.5 10*3/uL Normal 1.0-3.5 [facility] Comment on above: Performed By: #### 2 106-3 #### [facility] ([id number]) [address] [place] [address] 38446 Lymphocytes/100 WBC (Bld) 33.1 % Normal [facility] Comment on above: Performed By: #### 2 106-3 #### [facility] ([id number]) [address] [place] [address] 20150 MCH (RBC) [Entitic mass] 22.6 pg Low 27-34 [facility] Comment on above: Performed By: #### 2 106-3 #### [facility] ([id number]) [address] [place] [address] 84308 MCHC (RBC) [Mass/Vol] 31.7 g/dL Low 32-36 [facility] Comment on above: Performed By: #### 2 106-3 #### [facility] ([id number]) [address] [place] [address] 90558 MCV (RBC) [Entitic vol] 71 fL Low 80-100 [facility] Comment on above: Performed By: #### 2 106-3 #### [facility] ([id number]) [address] [place] [address] 05457 Monocytes (Bld) [#/Vol] 0.5 10*3/uL Normal 0-0.9 [facility] Comment on above: Performed By: #### 2 106-3 #### [facility] ([id number]) [address] [place] [address] 04510 Monocytes/100 WBC (Bld) 6.2 % Normal [facility] Comment on above: Performed By: #### 2 106-3 #### [facility] ([id number]) [address] [place] [address] 17826 Neutrophils/100 WBC (Bld) 59.1 % Normal [facility] Comment on above: Performed By: #### 2 106-3 #### [facility] ([id number]) [address] [place] [address] 84727 Platelet mean volume (Bld) [Entitic vol] 7.6 fL Normal 7-12 [facility] Comment on above: Performed By: #### 2 106-3 #### [facility] ([id number]) [address] [place] [address] 07975 Platelets (Bld) [#/Vol] 582 10*3/uL High 150-450 [facility] Comment on above: Performed By: #### 2 106-3 #### [facility] ([id number]) [address] [place] [address] 75598 RBC COUNT 4.51 X10E12/L Normal 3.80-5.20 [facility] Comment on above: Performed By: #### 2 106-3 #### [facility] ([id number]) [address] [place] [address] 29716 WBC (Bld) [#/Vol] 7.7 10*3/uL Normal 4.0-11.0 [place] Comment on above: Performed By: #### 2 106-3 #### [facility] ([id number]) [address] [place] [address] 00859 COMPREHENSIVE METABOLIC PANE Van 04-05-2024 Albumin [Mass/Vol] 4.3 g/dL Normal 3.2-5.3 [facility] Comment on above: Performed By: #### 2 106-3 #### [facility] ([id number]) [address] [place] [address] 91295 ALP [Catalytic activity/Vol] 65 U/L Normal 39-130 [facility] Comment on above: Performed By: #### 2 106-3 #### [facility] ([id number]) [address] [place] [address] 87293 ALT [Catalytic activity/Vol] 20 U/L Normal 0-31 [facility] Comment on above: Performed By: #### 2 106-3 #### [facility] ([id number]) [address] [place] [address] 18106 Anion gap [Moles/Vol] 8 mmol/L Normal 5-15 [facility] Comment on above: Performed By: #### 2 106-3 #### [facility] ([id number]) [address] [place] [address] 34941 AST [Catalytic activity/Vol] 24 U/L Normal 0-41 [facility] Comment on above: Performed By: #### 2 106-3 #### [facility] ([id number]) [address] [place] [address] 41344 Bilirubin [Mass/Vol] 0.8 mg/dL Normal 0.3-1.2 [facility] Comment on above: Performed By: #### 2 106-3 #### [facility] ([id number]) [address] [place] [address]114 Calcium [Mass/Vol] 8.9 mg/dL Normal 8.5-10.5 [place] Comment on above: Performed By: #### 2 106-3 #### [facility] ([id number]) [address] [place] [address] 01051 Chloride [Moles/Vol] 104 mmol/L Normal 98-109 [facility] Comment on above: Performed By: #### 2 106-3 #### [facility] ([id number]) [address] [place] [address] 71721 CO2 [Moles/Vol] 22 mmol/L Normal 22-32 [facility] Comment on above: Performed By: #### 2 106-3 #### [facility] ([id number]) [address] [place] [address] 49513 Creatinine [Mass/Vol] 0.62 mg/dL Normal 0.40-1.00 [facility] Comment on above: Result Comment: METH OD TRACEABLE TO IDMS STANDARD Performed By: #### 2 106-3 #### [facility] ([id number]) [address] [place] [address] 61903 eGFR (CKD-EPI) NON-RACE DEPENDENT >90 Normal >59 [facility] Comment on above: Result Comment: Reported eGFR is based on the CKD-EPI 2020 equation that does not use a race coefficient. Performed By: #### 2 106-3 #### [facility] ([id number]) [address] [place] [address] 70066 Glucose [Mass/Vol] 107 mg/dL High 65-99 [place] Comment on above: Performed By: #### 2 106-3 #### [facility] ([id number]) [address] [place] [address] 92679 Potassium [Moles/Vol] 3.7 mmol/L Normal 3.5-5.0 [facility] Comment on above: Performed By: #### 2 106-3 #### [facility] ([id number]) [address] [place] [address] 94198 Protein [Mass/Vol] 8.0 g/dL Normal 6.0-8.0 [place] Comment on above: Performed By: #### 2 106-3 #### [facility] ([id number]) [address] [place] [address] Sodium [Moles/Vol] 134 mmol/L Normal 134-146 [place] Comment on above: Performed By: #### 2 106-3 #### [facility] ([id number]) [address] [place] [address] 34738 Urea nitrogen [Mass/Vol] 8 mg/dL Normal 5-23 [facility] Comment on above: Performed By: #### 2 106-3 #### [facility] ([id number]) [address] [place] [address] ABDOMEN AND PELVIS WO CON Ton [...] Atwood MD on 04/05/2024 3:57 PM Normal [facility] HCG ( test) Ql (U)o n 04-05-2024 Beta HCG ( test) Ql (U) Negative Normal NEG [facility] Comment on above: Performed By: #### C BCA, CMP, 3040-3, 04172-5, 1988-5, 24668-0 #### [facility] ([id number]) [address] [place] [address] 23403 LIPASEon 04-05-2024 Lipase [Catalytic activity/Vol] 30 U/L Normal 17-40 [facility] Comment on above: Performed By: #### 2 106-3 #### [facility] ([id number]) [address] [place] [address] 27900 Lactate (P arely) [Moles/Vol]o n 04-05-2024 LACTATE W/REFLEX 1.7 mmol/L Normal 0.4-2.[address] [facility] Comment on above: Result Comment: Result did not trigger repeat Lactate, re-order if needed. Performed By: #### C BCA, CMP, 3040-3, 48812-3, 1987-5, 06640-5 #### [facility] ([id number]) [address] [place] [address] 60388 URN MACROSCOPIC NURon 2023 BILIRUBIN AUDREY Negative Normal NEG [facility] Comment on above: Performed By: #### 2 106-3 #### [facility] ([id number]) [address] [place] [address] 39107 BLOOD/HGB AUDREY Negative Normal NEG [facility] Comment on above: Performed By: #### 2 106-3 #### [facility] ([id number]) [address] [place] [address] 79961 GLUCOSE AUDREY Negative Normal NEG [facility] Comment on above: Performed By: #### 2 106-3 #### [facility] ([id number]) [address] [place] [address] 35759 KETONES AUDREY Negative Normal NEG [facility] Comment on above: Performed By: #### 2 106-3 #### [facility] ([id number]) [address] [place] [address] 39007 LEUKOCYTE ESTERASE AUDREY Negative Normal NEG [facility] Comment on above: Performed By: #### 2 106-3 #### [facility] ([id number]) [address] [place] [address] 38642 NITRITE AUDREY Negative Normal NEG [facility] Comment on above: Performed By: #### 2 106-3 #### [facility] ([id number]) [address] [place] [address] PH AUDREY 7.0 Normal 5.0-8.5 [facility] Comment on above: Performed By: #### 2 106-3 #### [facility] ([id number]) [address] [place] [address] 01029 PROTEIN AUDREY Negative Normal NEG [facility] Comment on above: Performed By: #### 2 106-3 #### [facility] ([id number]) [address] [place] [address] 45044 SPECIFIC GRAVITY AUDREY 1.010 Normal 1.003-1.035 [facility] Comment on above: Performed By: #### 2 106-3 #### [facility] ([id number]) [address] [place] [address] 33954 UROBILINOGEN AUDREY 0.2 eu/dL Normal <1.[address] [facility] Comment on above: Performed By: #### 2 106-3 #### [facility] ([id number]) [address] [place] [address] 45613 US PELVIC WITH TRANSVAGINAL AND DUPLEXon 04-05-2024 [...] Martinez MD on 04/05/2024 3:03 PM Normal [facility] CBC AND AUTO DIFFon 03-28-20 ABSOLUTE BASOPHIL 0.1 X10E9/L Normal 0.0-0.2 [facility] Comment on above: Performed By: #### C BCA, CMP #### [facility] ([id number]) [address] [place] [address] ABSOLUTE NEUTROPHIL 2.4 X10E9/L Normal 1.5-6.6 [facility] Comment on above: Performed By: #### C BCA, CMP #### [facility] ([id number]) [address] [place] [address] Basophils/100 WBC (Bld) 1.1 % Normal [facility] Comment on above: Performed By: #### C BCA, CMP #### [facility] ([id number]) [address] [place] [address] Eosinophils (Bld) [#/Vol] 0.1 10*3/uL Normal 0.0-0.[address] [facility] Comment on above: Performed By: #### C BCA, CMP #### [facility] ([id number]) [address] [address] Eosinophils/100 WBC (Bld) 2.7 % Normal [facility] Comment on above: Performed By: #### C BCA, CMP #### [facility] ([id number]) [address] [place] [address] Erythrocyte distribution width (RBC) [Ratio] 18.7 % High 11.5-15.[address] [facility] Comment on above: Performed By: #### C HEATH, CMP #### [facility] ([id number]) [address] [place] [address] Hematocrit (Bld) [Volume fraction] 31.3 % Low 35-[address] [facility] Comment on above: Performed By: #### C HEATH, CMP #### [facility] ([id number]) [address] [place] [address] Hemoglobin (Bld) [Mass/Vol] 9.9 g/dL Low 11.7-15.[address] [facility] Comment on above: Performed By: #### C HEATH, CMP #### [facility] ([id number]) [address] [place] [address] Lymphocytes (Bld) [#/Vol] 2.2 10*3/uL Normal 1.0-3.[address] [facility] Comment on above: Performed By: #### C HEATH, CMP #### [facility] ([id number]) [address] [place] [address] Lymphocytes/100 WBC (Bld) 42.4 % Normal [facility] Comment on above: Performed By: #### C HEATH, CMP #### [facility] ([id number]) [address] [place] [address] MCH (RBC) [Entitic mass] 23.2 pg Low 27-[address] [facility] Comment on above: Performed By: #### C BCA, CMP #### [facility] ([id number]) [address] [place] [address] MCHC (RBC) [Mass/Vol] 31.7 g/dL Low 32-36 [facility] Comment on above: Performed By: #### C BCA, CMP #### [facility] ([id number]) [address] [place] [address] MCV (RBC) [Entitic vol] 73 fL Low 80-100 [facility] Comment on above: Performed By: #### C BCA, CMP #### [facility] ([id number]) [address] [place] [address] Monocytes (Bld) [#/Vol] 0.4 10*3/uL Normal 0-0.[address] [facility] Comment on above: Performed By: #### C HEATH, CMP #### [facility] ([id number]) [address] [place] [address] Monocytes/100 WBC (Bld) 7.9 % Normal [facility] Comment on above: Performed By: #### C HEATH, CMP #### [facility] ([id number]) [address] [place] [address] Neutrophils/100 WBC (Bld) 45.9 % Normal [facility] Comment on above: Performed By: #### C HEATH, CMP #### [facility] ([id number]) [address] [place] [address] Platelet mean volume (Bld) [Entitic vol] 8.0 fL Normal 7-[address] [facility] Comment on above: Performed By: #### C BCA, CMP #### [facility] ([id number]) [address] [place] [address] Platelets (Bld) [#/Vol] 457 10*3/uL High 150-[address] [facility] Comment on above: Performed By: #### C BCA, CMP #### [facility] ([id number]) [address] [place] [address] RBC COUNT 4.28 X10E12/L Normal 3.80-5.20 [facility] [place] [facility] Comment on above: Performed By: #### C BCA, CMP #### [facility] ([id number]) [address] [place] [address] WBC (Bld) [#/Vol] 5.2 10*3/uL Normal 4.0-11.0 [facility] Comment on above: Performed By: #### C BCA, CMP #### [facility] ([id number]) [address] [place] [address] COMPREHENSIVE METABOLIC PANE Van 03-28-2024 Albumin [Mass/Vol] 4.0 g/dL Normal 3.2-5.3 [facility] Comment on above: Performed By: #### C BCA, CMP #### [facility] ([id number]) [address] [place] [address] ALP [Catalytic activity/Vol] 61 U/L Normal 39-[address] [facility] Comment on above: Performed By: #### C BCA, CMP #### [facility] ([id number]) [address] [place] [address] ALT [Catalytic activity/Vol] 12 U/L Normal 0-[address] [facility] Comment on above: Performed By: #### C BCA, CMP #### [facility] ([id number]) [address] [place] [address] Anion gap [Moles/Vol] 10 mmol/L Normal 5-15 [facility] Comment on above: Performed By: #### C BCA, CMP #### [facility] ([id number]) [address] [place] [address] AST [Catalytic activity/Vol] 14 U/L Normal 0-[address] [facility] Comment on above: Performed By: #### C BCA, CMP #### [facility] ([id number]) [address] [place] [address] Bilirubin [Mass/Vol] 0.3 mg/dL Normal 0.3-1.2 [facility] Comment on above: Performed By: #### C BCA, CMP #### [facility] ([id number]) [address] [place] [address] Calcium [Mass/Vol] 9.0 mg/dL Normal 8.5-10.5 [facility] Comment on above: Performed By: #### C BCA, CMP #### [facility] ([id number]) [address] [place] [address] Chloride [Moles/Vol] 107 mmol/L Normal 98-109 [facility] Comment on above: Performed By: #### C BCA, CMP #### [facility] ([id number]) [address] [place] [address] CO2 [Moles/Vol] 24 mmol/L Normal 22-[address] [facility] Comment on above: Performed By: #### C BCA, CMP #### [facility] ([id number]) [address] [address] [place] [address] Creatinine [Mass/Vol] 0.72 mg/dL Normal 0.40-1.00 [facility] Comment on above: Result Comment: METH OD TRACEABLE TO IDMS STANDARD Performed By: #### C BCA, CMP #### [facility] ([id number]) [address] [place] [address] eGFR (CKD-EPI) NON-RACE DEPENDENT >90 Normal >[address] [facility] Comment on above: Result Comment: Reported eGFR is based on the CKD-EPI 2020 equation that does not use a race coefficient. Performed By: #### C BCA, CMP #### [facility] ([id number]) [address] [place] [address] Glucose [Mass/Vol] 101 mg/dL High 65-99 [facility] Comment on above: Performed By: #### C BCA, CMP #### [facility] ([id number]) [address] [place] [address] Potassium [Moles/Vol] 3.9 mmol/L Normal 3.5-5.0 [facility] Comment on above: Performed By: #### C BCA, CMP #### [facility] ([id number]) [address] [place] [address] Protein [Mass/Vol] 6.9 g/dL Normal 6.0-8.0 [facility] Comment on above: Performed By: #### C BCA, CMP #### [facility] ([id number]) [address] [place] [address] Sodium [Moles/Vol] 141 mmol/L Normal 134-146 [facility] Comment on above: Performed By: #### C BCA, CMP #### [facility] ([id number]) [address] [place] [address] Urea nitrogen [Mass/Vol] 10 mg/dL Normal 5-[address] [facility] Comment on above: Performed By: #### C BCA, CMP #### [facility] ([id number]) [address] [place] [address] CBC AND AUTO DIFFon 03-07-20 24 ABSOLUTE BASOPHIL 0.1 X10E9/L Normal 0.0-0.2 [place] Comment on above: Performed By: #### 2 106-3 #### [facility] ([id number]) [address] [place] [address] ABSOLUTE NEUTROPHIL 3.0 X10E9/L Normal 1.5-6.6 [facility] Comment on above: Performed By: #### 2 106-3 #### [facility] ([id number]) [address] [place] [address] Basophils/100 WBC (Bld) 1.1 % Normal [facility] Comment on above: Performed By: #### 2 106-3 #### [facility] ([id number]) [address] [place] [address]68 Eosinophils (Bld) [#/Vol] 0.1 10*3/uL Normal 0.0-0.4 [facility] Comment on above: Performed By: #### 2 106-3 #### [facility] ([id number]) [address] [place] [address] 03400 Eosinophils/100 WBC (Bld) 1.0 % Normal [facility] Comment on above: Performed By: #### 2 106-3 #### [facility] ([id number]) [address] [place] [address] Erythrocyte distribution width (RBC) [Ratio] 17.6 % High 11.5-15.0 [facility] Comment on above: Performed By: #### 2 106-3 #### [facility] ([id number]) [address] [place] [address]96[address] Hematocrit (Bld) [Volume fraction] 34.1 % Low 35-47 [facility] Comment on above: Performed By: #### 2 106-3 #### [facility] ([id number]) [address] [place] [address] Hemoglobin (Bld) [Mass/Vol] 10.9 g/dL Low 11.7-15.5 [facility] Comment on above: Performed By: #### 2 106-3 #### [facility] ([id number]) [address] [place] [address] 7[address] Lymphocytes (Bld) [#/Vol] 2.0 10*3/uL Normal 1.0-3.5 [facility] Comment on above: Performed By: #### 2 106-3 #### [facility] ([id number]) [address] [place] [address] 89932 Lymphocytes/100 WBC (Bld) 36.4 % Normal [facility] Comment on above: Performed By: #### 2 106-3 #### [facility] ([id number]) [address] [place] [address] MCH (RBC) [Entitic mass] 22.7 pg Low 27-34 [facility] Comment on above: Performed By: #### 2 106-3 #### [facility] ([id number]) [address] [place] [address] MCHC (RBC) [Mass/Vol] 31.8 g/dL Low 32-36 [facility] Comment on above: Performed By: #### 2 106-3 #### [facility] ([id number]) [address] [place] [address] 67067 MCV (RBC) [Entitic vol] 71 fL Low 80-100 [facility] Comment on above: Performed By: #### 2 106-3 #### [facility] ([id number]) [address] [place] [address] 73792 Monocytes (Bld) [#/Vol] 0.4 10*3/uL Normal 0-0.9 [facility] Comment on above: Performed By: #### 2 106-3 #### [facility] ([id number]) [address] [place] [address] 21768 Monocytes/100 WBC (Bld) 6.9 % Normal [facility] Comment on above: Performed By: #### 2 106-3 #### [facility] ([id number]) [address] [place] [address] 11025 Neutrophils/100 WBC (Bld) 54.6 % Normal [facility] Comment on above: Performed By: #### 2 106-3 #### [facility] ([id number]) [address] [place] [address] 22727 Platelet mean volume (Bld) [Entitic vol] 7.7 fL Normal 7-12 [facility] Comment on above: Performed By: #### 2 106-3 #### [facility] ([id number]) [address] [place] [address] 80262 Platelets (Bld) [#/Vol] 514 10*3/uL High 150-450 [facility] Comment on above: Performed By: #### 2 106-3 #### [facility] ([id number]) [address] [place] [address] 57877 RBC COUNT 4.78 X10E12/L Normal 3.80-5.20 [facility] Comment on above: Performed By: #### 2 106-3 #### [facility] ([id number]) [address] [place] [address] 01543 WBC (Bld) [#/Vol] 5.5 10*3/uL Normal 4.0-11.0 [place] Comment on above: Performed By: #### 2 106-3 #### [facility] ([id number]) [address] [place] [address] COMPREHENSIVE METABOLIC PANE Van 03-07-2024 Albumin [Mass/Vol] 4.5 g/dL Normal 3.2-5.3 [place] Comment on above: Performed By: #### 2 106-3 #### [facility] ([id number]) [address] [place] [address] 18460 ALP [Catalytic activity/Vol] 64 U/L Normal 39-130 [facility] Comment on above: Performed By: #### 2 106-3 #### [facility] ([id number]) [address] [place] [address] ALT [Catalytic activity/Vol] 18 U/L Normal 0-31 [facility] Comment on above: Performed By: #### 2 106-3 #### [facility] ([id number]) [address] [place] [address] 17046 Anion gap [Moles/Vol] 8 mmol/L Normal 5-15 [facility] Comment on above: Performed By: #### 2 106-3 #### [facility] ([id number]) [address] [place] [address] 30640 AST [Catalytic activity/Vol] 19 U/L Normal 0-41 [facility] Comment on above: Performed By: #### 2 106-3 #### [facility] ([id number]) [address] [place] [address] 97801 Bilirubin [Mass/Vol] 0.7 mg/dL Normal 0.3-1.2 [facility] Comment on above: Performed By: #### 2 106-3 #### [facility] ([id number]) [address] [place] [address] 36[address] Calcium [Mass/Vol] 9.4 mg/dL Normal 8.5-10.5 [place] Comment on above: Performed By: #### 2 106-3 #### [facility] ([id number]) [address] [place] [address] 67196 Chloride [Moles/Vol] 105 mmol/L Normal 98-109 [facility] Comment on above: Performed By: #### 2 106-3 #### [facility] ([id number]) [address] [place] [address] 26859 CO2 [Moles/Vol] 21 mmol/L Low 22-32 [facility] Comment on above: Performed By: #### 2 106-3 #### [facility] ([id number]) [address] [place] [address] [place] [address] Creatinine [Mass/Vol] 0.68 mg/dL Normal 0.40-1.00 [facility] Comment on above: Result Comment: METH OD TRACEABLE TO IDMS STANDARD Performed By: #### 2 106-3 #### [facility] ([id number]) [address] [place] [address] 13409 eGFR (CKD-EPI) NON-RACE DEPENDENT >90 Normal >59 [facility] Comment on above: Result Comment: Reported eGFR is based on the CKD-EPI 2020 equation that does not use a race coefficient. Performed By: #### 2 106-3 #### [facility] ([id number]) [address] [place] [address] 93103 Glucose [Mass/Vol] 107 mg/dL High 65-99 [place] Comment on above: Performed By: #### 2 106-3 #### [facility] ([id number]) [address] [place] [address] 32243 Potassium [Moles/Vol] 3.8 mmol/L Normal 3.5-5.0 [facility] Comment on above: Performed By: #### 2 106-3 #### [facility] ([id number]) [address] [place] [address] 18561 Protein [Mass/Vol] 8.6 g/dL High 6.0-8.0 [place] Comment on above: Performed By: #### 2 106-3 #### [facility] ([id number]) [address] [place] [address] 41253 Sodium [Moles/Vol] 134 mmol/L Normal 134-146 [place] Comment on above: Performed By: #### 2 106-3 #### [facility] ([id number]) [address] [place] [address] 15931 Urea nitrogen [Mass/Vol] 10 mg/dL Normal 5-23 [facility] Comment on above: Performed By: #### 2 106-3 #### [facility] ([id number]) [address] [place] [id number] HCG ( test) Ql (U)o n 03-07-2024 Beta HCG ( test) Ql (U) Negative Normal NEG [facility] Comment on above: Performed By: #### 2 106-3 #### [facility] ([id number]) [address] [place] [address]208 URN MACROSCOPIC NURon 2023 BILIRUBIN AUDREY Negative Normal NEG [facility] Comment on above: Performed By: #### 2 106-3 #### [facility] ([id number]) [address] [place] [address] 52630 BLOOD/HGB AUDREY Trace Abnormal NEG [facility] Comment on above: Performed By: #### 2 106-3 #### [facility] ([id number]) [address] [place] [address]34 GLUCOSE AUDREY Negative Normal NEG [facility] Comment on above: Performed By: #### 2 106-3 #### [facility] ([id number]) [address] [place] [id number] KETONES AUDREY Negative Normal NEG [facility] Comment on above: Performed By: #### 2 106-3 #### [facility] ([id number]) [address] [place] [address] [place] [address] LEUKOCYTE ESTERASE AUDREY Negative Normal NEG [facility] Comment on above: Performed By: #### 2 106-3 #### [facility] [facility] ([id number]) [address] [place] [address] NITRITE AUDREY Negative Normal NEG [facility] Comment on above: Performed By: #### 2 106-3 #### [facility] ([id number]) [address] [place] [address] [place] [address] PH AUDREY 6.0 Normal 5.0-8.5 [facility] Comment on above: Performed By: #### 2 106-3 #### [facility] ([id number]) [address] [place] [address] PROTEIN AUDREY Negative Normal NEG [facility] Comment on above: Performed By: #### 2 106-3 #### [facility] ([id number]) [address] [place] [address]102 SPECIFIC GRAVITY AUDREY 1.010 Normal 1.003-1.035 [facility] Comment on above: Performed By: #### 2 106-3 #### [facility] ([id number]) [address] [place] [address]1287 UROBILINOGEN AUDREY 0.2 eu/dL Normal <1.[address] [facility] Comment on above: Performed By: #### 2 106-3 #### [facility] ([id number]) [address] [place] [address] CBCon 02-24-2024 ABSOLUTE BAS 0.1 10*3/uL Normal 0.0-0.2 [facility] ABSOLUTE EOS 0.2 10*3/uL Normal 0.0-0.7 [facility] ABSOLUTE NEUTROPHIL COUNT 3.2 10*3/uL Normal 1.4-6.5 [facility] Basophils/100 WBC (Bld) 0.7 % Normal 0.0-2.0 [facility] DTYPE AUTO DIFF Normal [facility] Eosinophils/100 WBC (Bld) 2.3 % Normal 0.0-11.0 [facility] Lymphocytes (Bld) [#/Vol] 3.5 10*3/uL High 1.2-3.4 [facility] Lymphocytes/100 WBC (Bld) 47.1 % Normal 20.0-55.0 [facility] Monocytes (Bld) [#/Vol] 0.5 10*3/uL Normal 0.0-0.7 [facility] Monocytes/100 WBC (Bld) 7.4 % Normal 0.0-10.0 [facility] Neutrophils/100 WBC (Bld) 42.5 % Normal 37.0-75.0 [facility] Erythrocyte distribution width (RBC) [Ratio] 17.1 % High 11.5-14.5 [facility] Hematocrit (Bld) [Volume fraction] 33.6 % Low 36.0-48.0 [facility] Hemoglobin (Bld) [Mass/Vol] 10.3 g/dL Low 12.0-16.0 [facility] MCH (RBC) [Entitic mass] 22.7 pg Low 26.0-35.0 [facility] MCHC (RBC) [Mass/Vol] 30.8 g/dL Normal 27.0-37.0 [facility] MCV (RBC) [Entitic vol] 73.5 fL Low 80.0-100.0 [facility] Platelet mean volume (Bld) [Entitic vol] 7.9 fL Normal 7.4-11.0 [facility] Platelets (Bld) [#/Vol] 466 10*3/uL High 130-400 [facility] RBC (Bld) [#/Vol] 4.57 10*6/uL Normal 4.0-5.4 [facility] WBC (Bld) [#/Vol] 7.4 10*3/uL Normal 3.6-11.0 [facility] CBC, EDIF, PLATELETon 2023 ABSOLUTE BASOPHIL COUNT 0.1 10*3/uL 0.0 - 0.2 10*3/uL [facility] Basophils/100 WBC (Bld) 0.7 % 0.0 - 2.0 % [facility] Differential cell count method Nom (Bld) AUTO DIFF % [facility] Eosinophils (Bld) [#/Vol] 0.2 10*3/uL 0.0 - 0.7 10*3/uL [facility] Eosinophils/100 WBC (Bld) 2.3 % 0.0 - 11.0 % [facility] Erythrocyte distribution width (RBC) [Ratio] 17.1 % High 11.5 - 14.5 % [facility] Hematocrit (Bld) [Volume fraction] 33.6 % Low 36.0 - 48.0 % [facility] Hemoglobin (Bld) [Mass/Vol] 10.3 g/dL Low [facility] Interpretation and review of laboratory results Abnormal [facility] Lymphocytes (Bld) [#/Vol] 3.5 10*3/uL High 1.2 - 3.4 10*3/uL [facility] Lymphocytes/100 WBC (Bld) 47.1 % 20.0 - 55.0 % [facility] MCH (RBC) [Entitic mass] 22.7 pg Low 26.0 - 35.0 PG [facility] MCHC (RBC) [Mass/Vol] 30.8 g/dL [facility] MCV (RBC) [Entitic vol] 73.5 fL Low A [facility] Monocytes (Bld) [#/Vol] 0.5 10*3/uL 0.0 - 0.7 10*3/uL [facility] Monocytes/100 WBC (Bld) 7.4 % 0.0 - 10.0 % [facility] Neutrophils (Bld) [#/Vol] 3.2 10*3/uL 1.4 - 6.5 10*3/uL [facility] Neutrophils/100 WBC (Bld) 42.5 % 37.0 - 75.0 % [facility] Platelet mean volume (Bld) [Entitic vol] 7.9 fL [facility] Platelets (Bld) [#/Vol] 466 10*3/uL High 130 - 400 10*3/uL [facility] RBC (Bld) [#/Vol] 4.57 10*6/uL 4.0 - 5.4 10*6/uL [facility] WBC (Bld) [#/Vol] 7.4 10*3/uL 3.6 - 11.0 10*3/uL [facility] CMP FASTINGon 02-24-2024 A:G RATIO 1.1 RATIO Low 1.3-2.2 [facility] ALBUMIN 4.1 G/dl Normal 3.5-5.0 [facility] ALP [Catalytic activity/Vol] 62 U/L Normal 38-126 [facility] ALT [Catalytic activity/Vol] 23 U/L Normal <35 [facility] AST [Catalytic activity/Vol] 45 U/L High 14-36 [facility] Bilirubin [Mass/Vol] 0.3 mg/dL Normal 0.2-1.3 [facility] Calcium [Mass/Vol] 8.8 mg/dL Normal 8.4-10.2 [facility] Chloride [Moles/Vol] 110 mmol/L High 98-107 [facility] Comment on above: Result Comment: Salvador carlson note: Triglyceride levels of 600mg/dL or higher may positively bias chloride results by approximately 2.1 mmol CO2 [Moles/Vol] 23 mmol/L Normal 22-30 [facility] Creatinine [Mass/Vol] 0.80 mg/dL Normal 0.7-1.2 [facility] EST. GFR, 104 ml/min/1.73sq.m Normal [facility] EST. GFR,Non 86 ml/min/1.73sq.m Normal [facility] GFR Information Average GFR for 30-3 9 years old = 107. Normal [facility] Comment on above: Result Comment: [employer] franklin Kidney disease, GFR = <60. Kidney failure, GFR = <15. The GFR estimate is not adjusted for extreme body surface area or acute process, nor has it been validated for women or ethnic groups other than and . Glucose [Mass/Vol] 81 mg/dL Normal 70-100 [facility] Comment on above: Result Comment: NORMAL <100 mg/dL PREDIABETES 101-126 mg/dL DIABETES 126 mg/dL or higher Potassium [Moles/Vol] 3.9 mmol/L Normal 3.5-5.1 [facility] Protein [Mass/Vol] 7.7 g/dL Normal 6.3-8.2 [facility] Sodium [Moles/Vol] 141 mmol/L Normal 137-145 [facility] Urea nitrogen [Mass/Vol] 9 mg/dL Normal 7-20 [facility] COMPREHENSIVE METABOLIC PANE Van 02-24-2024 Albumin [Mass/Vol] 4.1 G/dl 3.5 - 5.0 G/dl [facility] Albumin/Globulin [Mass ratio] 1.1 {ratio} Low [facility] ALP [Catalytic activity/Vol] 62 U/L [facility] ALT [Catalytic activity/Vol] 23 U/L NINF [facility] AST [Catalytic activity/Vol] 45 U/L High [facility] Bilirubin [Mass/Vol] 0.3 mg/dL [facility] Calcium [Mass/Vol] 8.8 mg/dL [facility] Chloride [Moles/Vol] 110 mmol/L High [facility] Comment on above: Please note: Triglyc eride levels of 600mg/dL or higher may positively bias chloride results by approximately 2.1 mmol CO2 [Moles/Vol] 23 mmol/L [facility] Creatinine [Mass/Vol] 0.80 mg/dL [facility] GFR COMMENT Average GFR for 30-3 9 years old = 107. [facility] Comment on above: Chronic Kidney disea se, GFR = <60. Kidney failure, GFR = <15. The GFR estimate is not adjusted for extreme body surface area or acute process, nor has it been validated for women or ethnic groups other than and . GFR/1.73 sq M.predicted among blacks MDRD (S/P/Bld) [Vol rate/Area] 104 mL/min/{1.73_m2} ml/min/1.73 sq.m [facility] GFR/1.73 sq M.predicted among non-blacks MDRD (S/P/Bld) [Vol rate/Area] 86 mL/min/{1.73_m2} ml/min/1.73 sq.m [facility] Glucose post fast [Mass/Vol] 81 mg/dL [facility] Comment on above: NORMAL <100 mg/dL PREDIABETES 101-126 mg/dL DIABETES 126 mg/dL or higher Interpretation and review of laboratory results Abnormal [facility] Potassium [Moles/Vol] 3.9 mmol/L [facility] Protein [Mass/Vol] 7.7 g/dL [facility] Sodium [Moles/Vol] 141 mmol/L [facility] Urea nitrogen [Mass/Vol] 9 mg/dL [facility] HCG ( test) Ql (U)o n 02-24-2024 [facility] HCG QUALITATIVE, URINEon HCG ( test) Ql (U) Negative [facility] No Panel Informationon 02-23 Interpretation and review of laboratory results Abnormal [facility] URINALYSIS, MACROon 02-24-20 24 Bilirubin Ql (U) Negative NEGATIVE [facility] Clarity (U) CLEAR CLEAR [facility] Color (U) YELLOW YELLOW [facility] Glucose Test strip (U) [Mass/Vol] Negative NEGATIVE mg/dl [facility] Hemoglobin Ql (U) Negative NEGATIVE [facility] Ketones (U) [Mass/Vol] Negative NEGAT NAYE mg/dl [facility] Leukocyte esterase Test strip Ql (U) MODERATE Abnormal NEGATIVE [facility] Nitrite Ql (U) Negative NEGATIVE [facility] pH (U) 6.0 [pH] 5.0 - 7.0 [facility] Protein Ql (U) Negative NEGATIVE mg/dl [facility] Specific gravity (U) [Rel density] 1.010 1.010 - 1.025 [facility] Urobilinogen (U) [Mass/Vol] 0.2 mg/dL [facility] URINE HCG QUALon 02-24-2024 Beta HCG ( test) Ql (U) Negative Normal [facility] URINE MACROSCOPICon 02-24-20 24 Bilirubin Ql (U) Negative Normal NEGATIVE [facility] Clarity (U) CLEAR Normal CLEAR [facility] Color (U) YELLOW Normal YELLOW [facility] Glucose Ql (U) Negative Normal NEGATIVE [facility] pH (U) 6.0 [pH] Normal 5.0-7.0 [facility] URINE HEMOGLOBIN Negative Normal NEGATIVE [facility] URINE KETONE Negative Normal NEGATIVE [facility] URINE LEUKOTEST MODERATE Abnormal NEGATIVE [facility] URINE NITRATES Negative Normal NEGATIVE [facility] URINE SPEC GRAVITY 1.010 Normal 1.010-1.025 [facility] URINE TOTAL PROTEIN Negative Normal NEGATIVE [facility] Urobilinogen Qn (U) 0.2 {Ivone'U}/dL Normal 0.2-1.0 [facility] URINE MICROSCOPICon 02-24-20 24 Bacteria LM.HPF (Urine sed) [#/Area] TRACE Abnormal NEGATIVE [facility] Casts LM.LPF (Urine sed) [#/Area] NONE NONE /LPF [facility] Crystals LM Nom (Urine sed) NONE NONE [facility] Epithelial cells LM Ql (Urine sed) 5 TO 10 /HPF [facility] Mucus Ql (Urine sed) Negative NEGATIVE [facility] RBC LM.HPF (Urine sed) [#/Area] Negative NEGATIVE /HPF [facility] Urine sediment comments LM Edson (Urine sed) CULTURE CRITERIA NOT MET, NO CULTURE PERFORMED. [facility] WBC LM.HPF (Urine sed) [#/Area] 1 TO 5 NEGATIVE /HPF [facility] BACTERIA TRACE Abnormal NEGATIVE [facility] CASTS NONE Normal NONE [facility] CRYSTAL NONE Normal NONE [facility] Epithelial cells LM Ql (Urine sed) 5 TO 10 Normal [facility] Mucus Ql (Urine sed) Negative Normal NEGATIVE [facility] URINE COMMENT CULTURE CRITERIA NOT MET, NO CULTURE PERFORMED. Normal [facility] URINE RBC'S Negative Normal NEGATIVE [facility] URINE WBC'S 1 TO 5 Normal NEGATIVE [facility] CBCon 02-16-2024 ABSOLUTE BAS 0.1 10*3/uL Normal 0.0-0.2 [facility] ABSOLUTE EOS 0.0 10*3/uL Normal 0.0-0.7 [facility] ABSOLUTE NEUTROPHIL COUNT 2.7 10*3/uL Normal 1.4-6.5 [facility] Basophils/100 WBC (Bld) 1.4 % Normal 0.0-2.0 [facility] DTYPE AUTO DIFF Normal [facility] Eosinophils/100 WBC (Bld) 0.5 % Normal 0.0-11.0 [facility] Lymphocytes (Bld) [#/Vol] 2.1 10*3/uL Normal 1.2-3.4 [facility] Lymphocytes/100 WBC (Bld) 40.3 % Normal 20.0-55.0 [facility] Monocytes (Bld) [#/Vol] 0.3 10*3/uL Normal 0.0-0.7 [facility] Monocytes/100 WBC (Bld) 5.6 % Normal 0.0-10.0 [facility] Neutrophils/100 WBC (Bld) 52.2 % Normal 37.0-75.0 [facility] Erythrocyte distribution width (RBC) [Ratio] 17.0 % High 11.5-14.5 [facility] Hematocrit (Bld) [Volume fraction] 35.2 % Low 36.0-48.0 [facility] Hemoglobin (Bld) [Mass/Vol] 10.9 g/dL Low 12.0-16.0 [facility] MCH (RBC) [Entitic mass] 22.6 pg Low 26.0-35.0 [facility] MCHC (RBC) [Mass/Vol] 30.9 g/dL Normal 27.0-37.0 [facility] MCV (RBC) [Entitic vol] 73.0 fL Low 80.0-100.0 [facility] Platelet mean volume (Bld) [Entitic vol] 7.3 fL Low 7.4-11.0 [facility] Platelets (Bld) [#/Vol] 529 10*3/uL High 130-400 [facility] RBC (Bld) [#/Vol] 4.81 10*6/uL Normal 4.0-5.4 [facility] WBC (Bld) [#/Vol] 5.1 10*3/uL Normal 3.6-11.0 [facility] CBC, EDIF, PLATELETon 2023 ABSOLUTE BASOPHIL COUNT 0.1 10*3/uL 0.0 - 0.2 10*3/uL [facility] Basophils/100 WBC (Bld) 1.4 % 0.0 - 2.0 % [facility] Differential cell count method Nom (Bld) AUTO DIFF % [facility] Eosinophils (Bld) [#/Vol] 0.0 10*3/uL 0.0 - 0.7 10*3/uL [facility] Eosinophils/100 WBC (Bld) 0.5 % 0.0 - 11.0 % [facility] Erythrocyte distribution width (RBC) [Ratio] 17.0 % High 11.5 - 14.5 % [facility] Hematocrit (Bld) [Volume fraction] 35.2 % Low 36.0 - 48.0 % [facility] Hemoglobin (Bld) [Mass/Vol] 10.9 g/dL Low [facility] Interpretation and review of laboratory results Abnormal [facility] Lymphocytes (Bld) [#/Vol] 2.1 10*3/uL 1.2 - 3.4 10*3/uL [facility] Lymphocytes/100 WBC (Bld) 40.3 % 20.0 - 55.0 % [facility] MCH (RBC) [Entitic mass] 22.6 pg Low 26.0 - 35.0 PG [facility] MCHC (RBC) [Mass/Vol] 30.9 g/dL [facility] MCV (RBC) [Entitic vol] 73.0 fL Low A [facility] Monocytes (Bld) [#/Vol] 0.3 10*3/uL 0.0 - 0.7 10*3/uL [facility] Monocytes/100 WBC (Bld) 5.6 % 0.0 - 10.0 % [facility] Neutrophils (Bld) [#/Vol] 2.7 10*3/uL 1.4 - 6.5 10*3/uL [facility] Neutrophils/100 WBC (Bld) 52.2 % 37.0 - 75.0 % [facility] Platelet mean volume (Bld) [Entitic vol] 7.3 fL Low [facility] Platelets (Bld) [#/Vol] 529 10*3/uL High 130 - 400 10*3/uL [facility] RBC (Bld) [#/Vol] 4.81 10*6/uL 4.0 - 5.4 10*6/uL [facility] WBC (Bld) [#/Vol] 5.1 10*3/uL 3.6 - 11.0 10*3/uL [facility] CHEM 7 FASTINGon 02-16-2024 Chloride [Moles/Vol] 109 mmol/L High 98-107 [facility] Comment on above: Result Comment: Salvador carlson note: Triglyceride levels of 600mg/dL or higher may positively bias chloride results by approximately 2.1 mmol CO2 [Moles/Vol] 22 mmol/L Normal 22-30 [facility] Creatinine [Mass/Vol] 0.70 mg/dL Normal 0.7-1.2 [facility] EST. GFR, 121 ml/min/1.73sq.m Normal [facility] EST. GFR,Non 100 ml/min/1.73sq.m Normal [facility] GFR Information Average GFR for 30-3 9 years old = 107. Normal [facility] Comment on above: Result Comment: [employer] franklin Kidney disease, GFR = <60. Kidney failure, GFR = <15. The GFR estimate is not adjusted for extreme body surface area or acute process, nor has it been validated for women or ethnic groups other than and . Glucose [Mass/Vol] 106 mg/dL High 70-100 [facility] Comment on above: Result Comment: NORMAL <100 mg/dL PREDIABETES 101-126 mg/dL DIABETES 126 mg/dL or higher Potassium [Moles/Vol] 3.8 mmol/L Normal 3.5-5.1 [facility] Sodium [Moles/Vol] 139 mmol/L Normal 137-145 [facility] Urea nitrogen [Mass/Vol] 8 mg/dL Normal 7-20 [facility] CHEM 7 (LYTES,BUN,CREA,GLUC) on 02-16-2024 Chloride [Moles/Vol] 109 mmol/L High [facility] Comment on above: Please note: Triglyc eride levels of 600mg/dL or higher may positively bias chloride results by approximately 2.1 mmol CO2 [Moles/Vol] 22 mmol/L [facility] Creatinine [Mass/Vol] 0.70 mg/dL [facility] GFR COMMENT Average GFR for 30-3 9 years old = 107. [facility] Comment on above: Chronic Kidney disea se, GFR = <60. Kidney failure, GFR = <15. The GFR estimate is not adjusted for extreme body surface area or acute process, nor has it been validated for women or ethnic groups other than and . GFR/1.73 sq M.predicted among blacks MDRD (S/P/Bld) [Vol rate/Area] 121 mL/min/{1.73_m2} ml/min/1.73 sq.m [facility] GFR/1.73 sq M.predicted among non-blacks MDRD (S/P/Bld) [Vol rate/Area] 100 mL/min/{1.73_m2} ml/min/1.73 sq.m [facility] Glucose post fast [Mass/Vol] 106 mg/dL High [facility] Comment on above: NORMAL <100 mg/dL PREDIABETES 101-126 mg/dL DIABETES 126 mg/dL or higher Potassium [Moles/Vol] 3.8 mmol/L [facility] Sodium [Moles/Vol] 139 mmol/L [facility] Urea nitrogen [Mass/Vol] 8 mg/dL [facility] CT ABDOMEN/PELVIS WITH CONTR Agustín 02-16-2024 [...] 3. There is no obstructive uropathy. Normal [facility] CT Abdomen and Pelvis W cont [...] lesion. 3. There is no obstructive uropathy. [facility] Radiology Study observation (narrative) [facility] CT Abdomen and Pelvis W cont rast IVOrdered By: Jadon Ashraf on 02-16-2024 [facility] Work Phone: HCG ( test) Ql (U)o n 02-16-2024 [facility] HCG QUALITATIVE, URINEon HCG ( test) Ql (U) Negative [facility] HEPATIC FUNCTION PANELon Albumin [Mass/Vol] 4.5 g/dL [facility] ALP [Catalytic activity/Vol] 71 U/L [facility] ALT [Catalytic activity/Vol] 24 U/L NINF [facility] AST [Catalytic activity/Vol] 27 U/L [facility] Bilirubin [Mass/Vol] 0.5 mg/dL [facility] Bilirubin.direct [Mass/Vol] 0.5 mg/dL High [facility] Protein [Mass/Vol] 8.2 g/dL [facility] LIPASEon 02-16-2024 Lipase [Catalytic activity/Vol] 127 U/L 23 - 300 U/L [facility] LIPASE,SERUMon 02-16-2024 LIPASE,SERUM 127 U/L Normal 23-300 [facility] LIVER PANELon 02-16-2024 Albumin [Mass/Vol] 4.5 g/dL Normal 3.5-5.0 [facility] ALP [Catalytic activity/Vol] 71 U/L Normal 38-126 [facility] ALT [Catalytic activity/Vol] 24 U/L Normal <35 [facility] AST [Catalytic activity/Vol] 27 U/L Normal 14-36 [facility] Bilirubin [Mass/Vol] 0.5 mg/dL Normal 0.2-1.3 [facility] Bilirubin.indirect [Mass/Vol] 0.5 mg/dL High 0-0.4 [facility] Protein [Mass/Vol] 8.2 g/dL Normal 6.3-8.2 [facility] No Panel Informationon 02-15 Interpretation and review of laboratory results Abnormal [facility] PROTIMEon 02-16-2024 INR Coag (PPP) [Relative time] 0.89 {INR} Normal 0.88-1.14 [facility] Comment on above: Result Comment: 2.0-3.0 THERAPEUTIC RANGE 2.5-3.5 MECHANICAL VALVE RANGE PT Coag (PPP) [Time] 12.2 s Normal 11.8-14.4 [facility] PROTIME-INRon 02-16-2024 INR Coag (PPP) [Relative time] 0.89 {INR} 0.88 - 1.14 [facility] Comment on above: 2.0-3.0 THERAPEUTIC RANGE 2.5-3.5 MECHANICAL VALVE RANGE PT Coag (PPP) [Time] 12.2 s [facility] Portable XR Chest Viewson IMPRESSION: 1. [...] No free air collections underneath the diaphragms. [facility] Radiology Study observation (narrative) [facility] Portable XR Chest ViewsOrder ed By: Davi Cheng on 02-16-2024 [facility] Work Phone: URINE HCG QUALon 02-16-2024 Beta HCG ( test) Ql (U) Negative Normal [facility] XR CHEST 1 VIEW PORTABLEon 0 [...] free air collections underneath the diaphragms. Normal [facility] ED Clinical Summaryon 2023 ED Clinical Summary ED Clinical Summary [place] [id number] ED Clinical Summary Person Information [facility] Age[facility] 39 Years : 1985 Sex: Female Language: Danish PCP: NONE, XXXX Marital Status: Visit Id: [...] 02/13/2024 01:00:19 ADDRESS: [address] [place] [id number] PHYS DOC NOTES: MEDICAL INFORMATION: Prescriptions Given: New Medications [id number], [address], [place] [id number], [phone] amoxicillin-clavulanat e (Augmentin 875 mg-125 mg Tab) [...] Pain Follow up: With: Address: When: Dental: [facility] [phone] In 3 days 02/16/2024 With: Address: When: Dental: [place] [phone] In 3 days 02/16/2024 With: Address: When: Dental: [facility] [phone] In 3 days 02/16/2024 DIAGNOSIS: Pain, dental Normal [facility] ED Note-Physicianon 02-13-20 24 ED Note-Physician ED [...] and was given a short prescription for Paoli which she is also taking but states [...] already taking oral Toradol as well as Paoli. We discussed using lidocaine and bupivacaine soaked [...] for 7 day(s), 14 tab(s), Refill(s) 0, [id number], 165.1, cm, 02/13/24 0:28:00 EDT, [...] q12hr Follow-up With When Contact Information Dental: [facility] [phone] In 3 days 02/16/2024 EDT Additional Instructions: Dental: [place] [employer] [facility] [phone] In 3 days 02/16/2024 EDT Additional Instructions: Dental: [facility] [phone] In 3 days 02/16/2024 EDT Additional Instructions: [...] Diagnostic Results No qualifying data available. Normal [facility] Comment on above: Result Comment: Elec tronically Signed By: Ritesh Heath DO\.br\Date and Time Signed: 02/13/24 00:51 EDT ED Patient Summaryon 024 ED Patient Summary ED Patient Summary [place] [id number] Patient Discharge Instructions Person Information Name: ANTONIA NOYOLA Age: 39 Years Arrival Date: 02/13/2024 00:20:34 Discharge Diagnosis: Pain, dental Primary Care Physician: NONE, XXXX Provider Information Primary Provider: Ritesh Heath DO Advanced Admitting Office Escort:None The exam and treatment you received in the Emergency Department were for an urgent problem and are not intended as complete care. It is important that you follow up with a doctor, nurse practitioner, or physician?s chef assistant for ongoing care. If your symptoms become worse or you do not improve as expected and you are unable to reach your usual health care provider, you should return to the Emergency Department. We are available 24 hours a day. ANTONIA NOYOLA has been given the following list of patient education materials, prescriptions and follow-up instructions: Follow-up Instructions: With: Address: When: Dental: [facility] [phone] In 3 days 02/16/2024 With: Address: When: Dental: [facility] [phone] In 3 days 02/16/2024 With: Address: When: Dental: [facility] [phone] In 3 days 02/16/2024 In the event that this physician does not participate in your insurance network, please consult with your insurance company to find a nearby participating provider. Patient Education Materials: Dental Pain A MESSAGE TO ALL PATIENTS REGARDING OPIOIDS PRESCRIPTION OPIOIDS: WHAT YOU NEED TO KNOW Prescription opioids can be used to help relieve omljuxts-kz-ivkcbz pain and are often prescribed following a [...] care professi (more content not included)... Normal [facility] C REACTIVE PROTEINon 024 CRP [Mass/Vol] mg/L Normal 0.000-0.744 [facility] Comment on above: Performed By: #### C BCA, CMP, 3040-3, 29464-6, #### [facility] ([id number]) [address] [place] [address] CBC AND AUTO DIFFon 01-27-20 24 ABSOLUTE BASOPHIL 0.1 X10E9/L Normal 0.0-0.2 [place] Comment on above: Performed By: #### C BCA, CMP, 3040-3, 09871-5, 1985-10, #### [facility] ([id number]) [address] [place] [address] ABSOLUTE NEUTROPHIL 4.6 X10E9/L Normal 1.5-6.6 [facility] Comment on above: Performed By: #### C BCA, CMP, 3040-3, 45131-6, #### [facility] ([id number]) [address] [place] [address] Basophils/100 WBC (Bld) 1.0 % Normal [facility] Comment on above: Performed By: #### C HEATH, CMP, 0-3, , 1985-10, #### [facility] ([id number]) [address] [place] [address] Eosinophils (Bld) [#/Vol] 0.1 10*3/uL Normal 0.0-0.4 [facility] Comment on above: Performed By: #### C HEATH, CMP, 3039-08, , 1987-10, #### [facility] ([id number]) [address] [place] [address] 82836 Eosinophils/100 WBC (Bld) 1.8 % Normal [facility] Comment on above: Performed By: #### C HEATH, [facility], 3039-3, , 1987-10, #### [facility] ([id number]) [address] [place] [address] 19902 Erythrocyte distribution width (RBC) [Ratio] 17.1 % High 11.5-15.0 [facility] Comment on above: Performed By: #### Leila JOE, CMP, 3039-3, , 1987-10, #### [facility] ([id number]) [address] [place] [address] 03815 Hematocrit (Bld) [Volume fraction] 34.8 % Low 35-47 [facility] Comment on above: Performed By: #### C BCA, CMP, 0-3, , 1987-10, #### [facility] ([id number]) [address] [place] [address] 80574 Hemoglobin (Bld) [Mass/Vol] 10.9 g/dL Low 11.7-15.5 [facility] Comment on above: Performed By: #### C BCA, CMP, 0-3, , 1987-10, #### [facility] ([id number]) [address] [place] [address] 57176 Lymphocytes (Bld) [#/Vol] 1.9 10*3/uL Normal 1.0-3.5 [facility] Comment on above: Performed By: #### C BCA, CMP, 0-3, , 1987-10, #### [facility] ([id number]) [address] [place] [address] 67279 Lymphocytes/100 WBC (Bld) 26.4 % Normal [facility] Comment on above: Performed By: #### C BCA, CMP, 3039-3, , 1987-10, #### [facility] ([id number]) [address] [place] [address] 50396 MCH (RBC) [Entitic mass] 22.7 pg Low 27-34 [facility] Comment on above: Performed By: #### C BCA, CMP, 0-3, , 1987-10, #### [facility] ([id number]) [address] [place] [address] 32904 MCHC (RBC) [Mass/Vol] 31.3 g/dL Low 32-36 [facility] Comment on above: Performed By: #### C BCA, CMP, 0-3, , 1987-10, #### [facility] ([id number]) [address] [place] [address] 11668 MCV (RBC) [Entitic vol] 72 fL Low 80-100 [facility] Comment on above: Performed By: #### C BCA, CMP, 0-3, , 1987-10, #### [facility] ([id number]) [address] [place] [address] 21279 Monocytes (Bld) [#/Vol] 0.4 10*3/uL Normal 0-0.9 [facility] Comment on above: Performed By: #### C BCA, CMP, 3040-3, , 1987-10, #### [facility] ([id number]) [address] [place] [address] 92524 Monocytes/100 WBC (Bld) 5.8 % Normal [facility] Comment on above: Performed By: #### C BCA, CMP, 3039-3, , 1987-10, #### [facility] ([id number]) [address] [place] [address] 22793 Neutrophils/100 WBC (Bld) 65.0 % Normal [facility] Comment on above: Performed By: #### C BCA, CMP, 0-3, , 1987-10, #### [facility] ([id number]) [address] [place] [address] 38063 Platelet mean volume (Bld) [Entitic vol] 7.6 fL Normal 7-12 [facility] Comment on above: Performed By: #### Leila BCA, CMP, 0-3, , 1987-10, #### [facility] ([id number]) [address] [place] [address] 86041 Platelets (Bld) [#/Vol] 532 10*3/uL High 150-450 [facility] Comment on above: Performed By: #### C BCA, CMP, 3040-3, , 1987-10, #### [facility] ([id number]) [address] [place] [address] 24333 RBC COUNT 4.80 X10E12/L Normal 3.80-5.20 [facility] Comment on above: Performed By: #### C BCA, CMP, 3040-3, , 1987-10, #### [facility] ([id number]) [address] [place] [address] WBC (Bld) [#/Vol] 7.0 10*3/uL Normal 4.0-11.0 [place] Comment on above: Performed By: #### C BCA, CMP, 0-3, , 1987-10, #### [facility] ([id number]) [address] [place] [address] CHLAMYDIA/GC BY PCRon 2023 CHLAMYDIA/GC BY PCR [...] are dependent on adequate specimen collection. Normal [facility] Comment on above: Performed By: #### C GS #### [facility] ([id number]) [address] [place] [address], [address] [place] [address] COMPREHENSIVE [facility] 01-27-2024 Albumin [Mass/Vol] 4.3 g/dL Normal 3.2-5.3 [place] Comment on above: Performed By: #### C BCA, CMP, 3040-3, , 1987-10, #### [facility] ([id number]) [address] [place] [address] ALP [Catalytic activity/Vol] 76 U/L Normal 39-130 [facility] Comment on above: Performed By: #### C BCA, CMP, 3040-3, , 1987-10, #### [facility] ([id number]) [address] [place] [address] 55881 ALT [Catalytic activity/Vol] 28 U/L Normal 0-31 [facility] Comment on above: Performed By: #### C BCA, CMP, 3040-3, 05707-1, 1987-10, #### [facility] ([id number]) [address] [place] [address] 89490 Anion gap [Moles/Vol] 7 mmol/L Normal 5-15 [facility] Comment on above: Performed By: #### C BCA, CMP, 3040-3, 13506-0, 1987-10, #### [facility] ([id number]) [address] [place] [address] 66852 AST [Catalytic activity/Vol] 20 U/L Normal 0-41 [facility] Comment on above: Performed By: #### C BCA, CMP, 3040-3, 14888-7, 1987-10, #### [facility] ([id number]) [address] [place] [address] 61375 Bilirubin [Mass/Vol] 1.0 mg/dL Normal 0.3-1.2 [facility] Comment on above: Performed By: #### C BCA, CMP, 3040-3, 88287-4, 1987-10, #### [facility] ([id number]) [address] [place] [address] 08333 Calcium [Mass/Vol] 9.0 mg/dL Normal 8.5-10.5 [place] Comment on above: Performed By: #### C BCA, CMP, 3040-3, 58068-1, 1987-10, #### [facility] ([id number]) [address] [place] [address] 22829 Chloride [Moles/Vol] 102 mmol/L Normal 98-109 [facility] Comment on above: Performed By: #### C HEATH, STEVE, 3039-3, , 1987-10, #### [facility] ([id number]) [address] [place] [address] CO2 [Moles/Vol] 22 mmol/L Normal 22-32 [facility] Comment on above: Performed By: #### C HEATH, STEVE, 3039-3, , 1987-10, #### [facility] ([id number]) [address] [place] [address] 99587 Creatinine [Mass/Vol] 0.76 mg/dL Normal 0.40-1.00 [facility] Comment on above: Result Comment: METH OD TRACEABLE TO IDMS STANDARD Performed By: #### C STEVE JOE, 3, , 1987-10, #### [facility] ([id number]) [address] [place] [address] 03456 eGFR (CKD-EPI) NON-RACE DEPENDENT >90 Normal >59 [facility] Comment on above: Result Comment: Reported eGFR is based on the CKD-EPI 2020 equation that does not use a race coefficient. Performed By: #### C HEATH, STEVE, 3039-3, , 1987-10, #### [facility] ([id number]) [address] [place] [address] 55133 Glucose [Mass/Vol] 109 mg/dL High 65-99 [place] Comment on above: Performed By: #### C HEATH, CMP, 3039-3, , 1987-10, #### [facility] ([id number]) [address] [place] [address] 87122 Potassium [Moles/Vol] 4.1 mmol/L Normal 3.5-5.0 [facility] Comment on above: Performed By: #### C BCA, CMP, 3040-3, 83990-4, 1987-10, #### [facility] ([id number]) [address] [place] [address] 49769 Protein [Mass/Vol] 8.2 g/dL High 6.0-8.0 [place] Comment on above: Performed By: #### C BCA, CMP, 3040-3, 93340-9, 1987-10, #### [facility] ([id number]) [address] [place] [address] 55973 Sodium [Moles/Vol] 131 mmol/L Low 134-146 [place] Comment on above: Performed By: #### C BCA, CMP, 3039-3, , 1987-10, #### [facility] ([id number]) [address] [place] [address] 06618 Urea nitrogen [Mass/Vol] 6 mg/dL Normal 5-23 [facility] Comment on above: Performed By: #### C BCA, CMP, 0-3, , 1987-10, #### [facility] ([id number]) [address] [place] [address] 77436 HCG ( test) Ql (U)o n 01-27-2024 Beta HCG ( test) Ql (U) Negative Normal NEG [facility] Comment on above: Performed By: #### 2 106-3 #### [facility] ([id number]) [address] [place] [address] 81747 LIPASEon 01-27-2024 Lipase [Catalytic activity/Vol] 33 U/L Normal 17-40 [facility] Comment on above: Performed By: #### C BCA, CMP, 3040-3, 94292-4, 1987-10, #### [facility] ([id number]) [address] [place] [address] 49717 Lactate (P arely) [Moles/Vol]o n 01-27-2024 LACTATE W/REFLEX 1.5 mmol/L Normal 0.4-2.[address] [facility] Comment on above: Result Comment: Result did not trigger repeat Lactate, re-order if needed. Performed By: #### C BCA, CMP, 3040-3, 19624-1, 1987-10, #### [facility] ([id number]) [address] [place] [address] 42302 MAGNESIUMon 01-27-2024 Magnesium [Mass/Vol] 2.0 mg/dL Normal 1.8-2.6 [facility] Comment on above: Performed By: #### C BCA, CMP, 3040-3, 58821-4, 1987-10, #### [facility] ([id number]) [address] [place] [address] 50321 URINE CULTUREon 01-27-2024 Bacteria identified Cx Nom (U) CULTURE RESULTS <10,000 ORGANISMS/ML NORMAL URO GENITAL RASHID Normal [facility] Comment on above: Performed By: #### 2 106-3 #### [facility] ([id number]) [address] [place] [address] 67798 URN MACROSCOPIC NURon 2023 BILIRUBIN AUDREY Negative Normal NEG [facility] Comment on above: Performed By: #### N UM #### [facility] ([id number]) [address] [place] [address] 60389 BLOOD/HGB AUDREY Negative Normal NEG [facility] Comment on above: Performed By: #### N UM #### [facility] ([id number]) [address] [place] [address] 41016 GLUCOSE AUDREY Negative Normal NEG [facility] Comment on above: Performed By: #### N UM #### [facility] ([id number]) [address] [place] [address] [place] [address] KETONES AUDREY Negative Normal NEG [facility] Comment on above: Performed By: #### N UM #### [facility] ([id number]) [address] [place] [address] [place] [address] LEUKOCYTE ESTERASE AUDREY Negative Normal NEG [facility] Comment on above: Performed By: #### N UM #### [facility] ([id number]) [address] [place] [address] [place] [address] NITRITE AUDREY Negative Normal NEG [facility] Comment on above: Performed By: #### N UM #### [facility] ([id number]) [address] [place] [address] 61062 PH AUDREY 8.5 Normal 5.0-8.5 [facility] Comment on above: Performed By: #### N UM #### [facility] ([id number]) [address] [place] [address] [place] [address] PROTEIN AUDREY Negative Normal NEG [facility] Comment on above: Performed By: #### N UM #### [facility] ([id number]) [address] [place] [address] [place] [address] SPECIFIC GRAVITY AUDREY 1.015 Normal 1.003-1.035 [facility] Comment on above: Performed By: #### N UM #### [facility] ([id number]) [address] [place] [address] [place] [address] UROBILINOGEN AUDREY 0.2 eu/dL Normal <1.[address] [facility] Comment on above: Performed By: #### N UM #### [facility] ([id number]) [address] [place] [address] [place] [address] [place] PELVIC WITH TRANSVAGINAL AND DUPLEXon 01-27-2024 [...] Nixon MD on 01/27/2024 2:39 PM Normal [facility] VAGINITIS PANEL [...] clinical presentation to determine patient diagnosis. Normal [facility] Comment on above: Performed By: #### 2 106-3 #### [facility] ([id number]) [address] [facility] [place] [address] CT sinus wo conon 11-25-2023 CT sinus wo con [facility] Main [place] [address] [place] [address] Scan Report Signed Patient: Antonia Noyola MR#: [id number] 757 : 1985 Acct:[id number] Age/Sex: 38 / F ADM Date: 11/25/23 Loc: CT Room: Type: [facility] Attending Dr: Jennifer Duran DO Copies [...] Davi Figueroa M.D.11/25/2023 4:01 PM Dictation Location: [place] [address] Transcribed By: [facility] 11/25/23 1601 Dictated By: Davi Figueroa DO 11/25/23 1552 Signed By: 11/25/23 1601 Normal [facility] C Urineon 10-02-2023 Bacteria identified [...] Locations R1: This test was performed at: [facility], [address] [place] [address], [address]- , , [facility] Comment on above: Performed By: #### 2 007831 #### [facility] [address] [place] [address] 03119 BMPon 09-30-2023 Anion gap [Moles/Vol] 13 mmol/L Normal 6-16 [facility] Comment on above: Performed By: #### 2 665823, 6793139, 18138674, 7891094, 3505782 ####[facility] [address] [place] [address] Calcium [Mass/Vol] 9.1 mg/dL Normal 8.9-11.1 [facility] Comment on above: Performed By: #### 2 796476, 0121528, 42931184, 4015458, 4906536 ####[facility] [address] [place] [address] Chloride [Moles/Vol] 105 mmol/L Normal 101-[address] [facility] Comment on above: Performed By: #### 2 440311, 8472823, 09094008, 3215020, 3722690 ####[facility] [address] [place] [address] CO2 [Moles/Vol] 23 mmol/L Normal 21-31 [facility] Comment on above: Performed By: #### 2 781020, 2051617, 08422787, 4042355, 0635411 ####[facility] [address] [place] [address] Creatinine [Mass/Vol] 0.8 mg/dL Normal 0.5-1.3 [facility] Comment on above: Performed By: #### 2 641069, 4666709, 59080422, 7217197, 7142982 ####[facility] [address] [place] [address] Glucose [Mass/Vol] 95 mg/dL Normal 55-199 [facility] Comment on above: Performed By: #### 2 760707, 9329839, 76427567, 4885528, 5686366 ####[facility] [address] [place] [address] Potassium [Moles/Vol] 3.1 mmol/L Low 3.5-5.3 [facility] Comment on above: Performed By: #### 2 582319, 9084546, 80787029, 2433285, 6427775 ####[facility] [address] [place] [address] Sodium [Moles/Vol] 138 mmol/L Normal 135-145 [facility] Comment on above: Performed By: #### 2 278661, 1938911, 59863154, 9562488, 8290685 ####[facility] [address] [place] [address] Urea nitrogen [Mass/Vol] 7 mg/dL Normal 5-21 [facility] Comment on above: Performed By: #### 2 059033, 5201816, 28044307, 5698334, 6844106 ####[facility] [address] [place] [address] Urea nitrogen/Creatinine [Mass ratio] 9 No Units Low 10-20 [facility] Comment on above: Performed By: #### 2 468344, 0954511, 84032530, 2451218, 9867250 ####[facility] [address] [place] [address] CBC w/ Auto Diffon 4 Basophils/100 WBC (Bld) 0.3 % Normal 0.0-2.0 [facility] Comment on above: Performed By: #### 2 530269, 7382912, 30162462, 0333032, 9473969 ####[address] [address] Basophils/Leukocytes Auto (Bld) [Pure # fraction] 0.0 E9/L Normal 0.0-0.2 [facility] Comment on above: Performed By: #### 2 717547, 5272108, 94768724, 7661267, 2386660 ####[place] 4585657 Eosinophils (Bld) [#/Vol] 0.0 E9/L Normal 0.0-0.5 [facility] Comment on above: Performed By: #### 2 987594, 0648564, 27378445, 7600348, 5912287 ####[address] [address] Eosinophils/100 WBC (Bld) 0.4 % Normal 0.0-8.0 [facility] Comment on above: Performed By: #### 2 189822, 4774349, 51776963, 2319561, 2315546 ####[place] 4585657 Erythrocyte distribution width (RBC) [Ratio] 18.3 % High 10.9-14.2 [facility] Comment on above: Performed By: #### 2 013013, 9061694, 48768119, 6805668, 2436818 ####[address] [address] Hematocrit (Bld) [Volume fraction] 32.6 % Low 34.0-46.0 [facility] Comment on above: Performed By: #### 2 301751, 8301276, 17263503, 6590526, 3522777 ####[address] [address] Hemoglobin (Bld) [Mass/Vol] 10.3 g/dL Low 12.0-16.0 [facility] Comment on above: Performed By: #### 2 535191, 6983665, 58528297, 2914326, 0087220 ####[address] [address] Lymphocytes (Bld) [#/Vol] 4.1 E9/L High 1.0-4.0 [facility] Comment on above: Performed By: #### 2 790307, 5127073, 13922146, 4987032, 6933607 ####[address] [address] Lymphocytes/100 WBC (Bld) 39.5 % Normal 14.0-50.0 [facility] Comment on above: Performed By: #### 2 155763, 6830700, 80503133, 9504054, 7293273 ####[address] [address] MCH (RBC) [Entitic mass] 23.7 pg Low 27.0-34.0 [facility] Comment on above: Performed By: #### 2 128214, 2430190, 16805188, 2490105, 0775319 ####[address] [address] MCHC (RBC) [Mass/Vol] 31.7 g/dL Normal 31.4-36.0 [facility] Comment on above: Performed By: #### 2 396292, 0940649, 32509362, 9367511, 3346129 ####[address] [address] MCV (RBC) [Entitic vol] 74.9 fL Low 80.0-100.0 [facility] Comment on above: Performed By: #### 2 596737, 4560173, 10404378, 3208596, 9606171 ####[address] [place] [address] Monocytes (Bld) [#/Vol] 0.7 E9/L Normal 0.2-1.0 [facility] Comment on above: Performed By: #### 2 253134, 8992966, 80401929, 6118539, 8358477 ####[address] [address] Neutrophils (Bld) [#/Vol] 5.4 E9/L Normal 2.0-7.5 [facility] Comment on above: Performed By: #### 2 387021, 2841615, 94695454, 9934092, 5515160 ####[address] [address] Neutrophils/100 WBC (Bld) 53.1 % Normal 36.0-75.0 [facility] Comment on above: Performed By: #### 2 847992, 3359399, 31951232, 4757235, 1090851 ####[address] [address] Platelet 476.0 E9/L Normal 150.0-500.0 [facility] Comment on above: Performed By: #### 2 129426, 1690572, 52052148, 2911617, 5527924 ####[address] [address] Platelet mean volume (Bld) [Entitic vol] 7.7 fL Normal 6.4-10.8 [facility] Comment on above: Performed By: #### 2 785652, 0098535, 59746228, 6472786, 5232858 ####[address] [address] RBC (Bld) [#/Vol] 4.3 E12/L Normal 4.3-5.9 [facility] Comment on above: Performed By: #### 2 579584, 2374866, 00422432, 6053392, 4396489 ####[address] [address] WBC corrected for nucl RBC Auto (Bld) [#/Vol] 10.3 E9/L Normal 4.0-11.0 [facility] Comment on above: Performed By: #### 2 772820, 0157817, 04424680, 6758076, 4982141 ####[facility] [address] [place] [address] CHEMISTRYOrdered By: SYSTEM SYSTEM on 09-30-2023 Albumin [...] Remisol Chem Discharge Instructionson Discharge Instructions [id number]. [id number] Normal [facility] ED Clinical Summaryon 2023 ED Clinical Summary [place] [id number] ED Clinical Summary Person Information Name: ANTONIA NOYOLA/[facility] Age: 38 Years : 1985 Sex: Female Language: Danish PCP: NONE, XXXX Marital Status: MRN: [id number] [...] 09/30/2023 02:15:05 ADDRESS: [address] [place] [id number] PHYS DOC NOTES: MEDICAL INFORMATION: Prescriptions Given: [...] Follow up: With: Address: When: Rose [place], [facility] [address], [place] [address] Business (1) In 3 days 10/03/2023 DIAGNOSIS: AP (abdominal pain); Ovarian cyst Normal [facility] ED Note-Physicianon 09-30-19 ED Note-Physician Basic [...] taking oral tramadol, Toradol, Bentyl, and a Paoli at home and has had no significant relief. She does have some nausea but no vomiting. No change in bowel movements. No urinary symptoms. She reports that she has had multiple ovarian cysts and did schedule a ASSISTED LIVING ADMINISTRATOR appointment for possible hysterectomy but that is [...] of 3.1 but is otherwise overall reassuring. 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 Royal and another ASSISTED LIVING ADMINISTRATOR in the area to see if he [...] mg/2 mL (more content not included)... Normal [facility] Comment on above: Result Comment: Elec [...] Follow these instructions at home: ? Take mgvj-bwi-wypqawd and prescription medicines only as told by [...] provider. Document Revised: 11/06/2020 Document Reviewed: 11/06/2020 [employer] Patient Education ? 2022 [employer]. Normal [facility] ED Patient Summaryon 024 ED Patient Summary [address] [address] Patient Discharge Instructions Person Information Name: ANTONIA NOYOLA Age: 38 Years Arrival Date: 09/29/2023 23:38:37 Discharge Diagnosis: AP (abdominal pain); Ovarian cyst Primary Care Physician: NONE, XXXX Provider Information Primary Provider: Ritesh Heath DO Advanced Admitting Office Escort:None The exam and treatment you received in the Emergency Department were for an urgent problem and are not intended as complete care. It is important that you follow up with a doctor, nurse practitioner, or physician?s chef assistant for ongoing care. If your symptoms [...] Follow-up Instructions: With: Address: When: Rose Royal [address] [place] [address], [address] [address] Business (1) In 3 days 10/03/2023 In the event that this physician does not participate in your insurance network, please consult with your insurance company to find a nearby participating provider. Patient Education Materials: Ovarian Cyst A MESSAGE TO ALL PATIENTS REGARDING OPIOIDS PRESCRIPTION OPIOIDS: WHAT YOU NEED TO KNOW Prescription opioids can be used to help relieve dumxknle-kg-chtshv pain and are often prescribed following a [...] be struggling with addiction, tell your health skin care instructor and ask for guidance or call [facility]?S National Helpline at 1-466-656-JBKW. e Source: [place] Department o (more content not included)... Normal [facility] HEMATOLOGYOrdered By: SYSTEM SYSTEM on 09-30-2023 [...] 09-30-2023 Albumin [Mass/Vol] 4.4 g/dL Normal 3.3-5.0 [facility] Comment on above: Performed By: #### 2 369286, 6475531, 08370521, 6208812, 9967239 ####[facility] [address] [place] [address] Albumin/Globulin (S) [Mass conc ratio] 1.5 Normal 1.1-2.2 [facility] Comment on above: Performed By: #### 2 541477, 1845179, 30532953, 0142384, 2443965 ####[facility] [address] [place] [address] ALP [Catalytic activity/Vol] 64 Int._Unit/L Normal 21-98 [facility] Comment on above: Performed By: #### 2 591940, 3527854, 36490914, 6906298, 7667644 ####[facility] [address] [place] [address] ALT No additional P-5'-P [Catalytic activity/Vol] 9 Int._Unit/L Normal 6-46 [facility] Comment on above: Performed By: #### 2 [id number], [id number], [id number], [id number], [id number] ####[id number] [place] [address] AST [Catalytic activity/Vol] 12 Int._Unit/L Normal 5-43 [facility] Comment on above: Performed By: #### 2 [id number], [id number], [id number], [id number], [id number] ####[facility] [address] [place] [address] Bilirubin [Mass/Vol] 0.2 mg/dL Normal 0.0-1.[address] [facility] Comment on above: Performed By: #### 2 [id number], [id number], [id number], [id number], [id number] ####[facility] [address] [place], [place] [address] Bilirubin.direct [Mass/Vol] 0.0 mg/dL Normal 0.0-0.4 [facility] Comment on above: Performed By: #### 2 261923, 6505864, 92566867, 7782546, 6330406 ####[facility] [address] [place] [address] Bilirubin.indirect [Mass or moles/Vol] 0.2 mg/dL Normal 0.1-0.9 [facility] Comment on above: Performed By: #### 2 989858, 1043375, 78809418, 2846729, 8625776 ####[facility] [address] [place] [address] Globulin (S) [Mass/Vol] 3.0 g/dL Normal 1.4-4.0 [facility] Comment on above: Performed By: #### 2 069929, 5189578, 87993459, 0366286, 0726660 ####[facility] [address] [place] [address] Protein [Mass/Vol] 7.4 g/dL Normal 6.0-7.8 [facility] Comment on above: Performed By: #### 2 528945, 4866370, 41888961, 7863980, 9553608 ####[facility] [address] [place] [address] Lipase Levelon 09-30-2023 Lipase [Catalytic activity/Vol] 61 U/L High 13-58 [facility] Comment on above: Performed By: #### 2 736867, 8607900, 35726607, 4802604, 3451010 ####[facility] [address] [place] [address] SEROLOGYOrdered By: Ariadne Sheehan on 09-30-2023 HCG.beta subunit (U) [Moles/Vol] Negative Normal [facility] Man Sero U BetaHcg Qualon 09-30-2023 HCG.beta subunit (U) [Moles/Vol] Negative Normal [facility] Comment on above: Performed By: #### 2 7279276 ####[facility] [address] [place] [address] UA with Cult Rflxon 09-30-19 24 Bacteria Auto Ql (U) Trace Normal Trace [facility] Comment on above: Performed By: #### 2 255996 #### [facility] [address] [place] [address] Bilirubin Ql (U) Negative Normal Negative [facility] Comment on above: Performed By: #### 2 122362 #### [facility] [address] [place] [address] Clarity (U) Clear Normal Clear [facility] Comment on above: Performed By: #### 2 947231 #### [facility] [address] [place] [address] Color (U) Light-Yellow Normal Yellow [facility] Comment on above: Result Comment: Micr oscopic readings are only performed on those samples that meet specific criteria set forth by [facility]. Performed By: #### 2 939921 #### [facility] [address] [place] [address] Epithelial cells.squamous Auto (Urine sed) [#/Area] 3-4 Abnormal 0-2 [facility] Comment on above: Performed By: #### 2 223900 #### [facility] [address] [place] [address] Glucose Ql (U) Negative Normal Negative [facility] Comment on above: Performed By: #### 2 085905 #### [facility] [address] [place] [address] Hemoglobin Auto test strip (U) [Mass/Vol] Trace Abnormal Negative [facility] Comment on above: Performed By: #### 2 410165 #### [facility] [address] [place] [address] Ketones Auto test strip Ql (U) Negative Normal Negative [facility] Comment on above: Performed By: #### 2 442113 #### [facility] [address] [place] [address] Leukocyte esterase Auto test strip Ql (U) 75 Bertrand/uL Abnormal Negative [facility] Comment on above: Performed By: #### 2 040428 #### [facility] [address] [place] [address] Mucus Auto Ql (U) Negative Normal Negative [facility] Comment on above: Performed By: #### 2 896994 #### [facility] [address] [place] [address] Nitrite Auto test strip Ql (U) Negative Normal Negative [facility] Comment on above: Performed By: #### 2 551308 #### [facility] [address] [place] [address] pH (U) 5.5 [pH] Invalid Interpretation Code 5.0-9.0 [facility] Comment on above: Performed By: #### 2 342941 #### [facility] [address] [place] [address] Protein Ql (U) Negative Normal Negative [facility] Comment on above: Performed By: #### 2 900419 #### [facility] [address] [place] [address] RBC Ql (U) 4-20 Abnormal 0-3 [facility] Comment on above: Performed By: #### 2 321474 #### [facility] [address] [place] [address] Specific gravity (U) [Rel density] 1.017 Invalid Interpretation Code 1.005-1.030 [facility] Comment on above: Performed By: #### 2 301303 #### [facility] [address] [place] [address] Urobilinogen (U) [Mass/Vol] Negative Normal Negative [facility] Comment on above: Performed By: #### 2 858519 #### [facility] [address] [place] [address] WBC Auto (Urine sed) [#/Area] 0-5 Normal 0-5 [facility] Comment on above: Performed By: #### 2 990120 #### [facility] [address] [place] [address] URINALYSISOrdered By: SYSTEM SYSTEM on 09-30-2023 Bacteria Auto Ql (U) Trace graded/HPF Normal Tra cegraded /HPF [facility] UA Auto SS Bilirubin Ql (U) Negative Normal Negativemg/ dL [facility] UA Auto SS Clarity (U) Clear (09/30/23 12:08 AM) Normal Clear [facility] UA Auto SS Color (U) Light-Yellow 1 (09/30/23 12:08 AM) Normal Yellow [facility] UA Auto SS Comment on above: Interpretive Data: M icroscopic readings are only performed on those samples that meet specific criteria set forth by [facility]. Epithelial cells.squamous Auto (Urine sed) [...] Desc Clean Catch (09/30/23 12:08 AM) Normal [facility] UA Auto SS Work Phone: US Doppler [...] Transvaginal Ultrasound Performed Uterus Position Anteverted Normal [facility] US Transvaginal Non-OBon US Transvaginal Non-OB Exam Date/Time: 09/30/2023 02:03 EDT Reason for Exam: pssible torsion, known large cyst;Other (please specify) Report PLEASE SEE US Pelvis Non-OB Complete REPORT DATED: 09/30/2023. Ordering Provider: Ritesh Heath FINAL REPORT Dictated: 09/30/2023 4:11 am Harvey Leslie MD Signed (Electronic Signature): 09/30/2023 4:11 am Signed by: Harvey Leslie MD Transcribed by: MILLIE Technologist: GERDA Normal [facility] eGFRon 09-30-2023 eGFR 97 mL/min/1.73 m2 Normal >=59 [facility] Comment on above: Order Comment: Order added by Discern Expert. Performed By: #### 2 989870, 2525809, 79710888, 0400385, 8512196 ####[facility] [address] [place] [address] Consent for Treatmenton 09-11 Consent for Treatment [id number] 4040 [id number] 0TIFF Normal [facility] UA with Cult Rflxon 09-29-19 24 Type of Urine collection method Clean Catch [facility] Comment on above: Performed By: #### 2 550273 #### [facility] [address] [place] [address] ED Clinical Summaryon 2023 ED Clinical Summary [address] [address] ED Clinical Summary Person Information Name: ANTONIA NOYOLA [facility] Age: 38 Years : 1985 Sex: Female Language: Danish PCP: NONE, XXXX Marital Status: Visit Id: [...] 09/26/2023 18:13:56 09/26/2023 18:13:56 09/26/2023 18:13:56 ADDRESS: [address] [place] [address] [address] [place] [id number] PHYS DOC NOTES: MEDICAL INFORMATION: Prescriptions Given: New Medications [id number], [address], [place] [id number], [phone] diflunisal (diflunisal 500 mg Tab) 1 Tablets [...] INFORMATION: Instructions: Follow up: With: Address: When: [address] [address] Business (1) In 3 days 09/29/2023 With: Address: When: Tarun BRADEN [address] [place] [address] Business (1) In 3 days 09/29/2023 With: Address: When: XXXX [facility] [place] In 3 days DIAGNOSIS: Abdominal pain; Constipation; Ovarian cyst Normal [facility] ED Patient Education Noteon 09-27-2023 ED Patient Education Note Normal [facility] ED Patient Summaryon 024 ED Patient Summary [address] [address] Patient Discharge Instructions Person Information Name: ANTONIA NOYOLA Age: 38 Years Arrival Date: 09/26/2023 13:54:18 Discharge Diagnosis: Abdominal pain; Constipation; Ovarian cyst Primary Care Physician: NONE, XXXX Provider Information Primary Provider: Konstantin Penny DO Advanced Admitting Office Escort:None The exam and treatment you received in the Emergency Department were for an urgent problem and are not intended as complete care. It is important that you follow up with a doctor, nurse practitioner, or physician?s chef assistant for ongoing care. If your symptoms become worse or you do not improve as expected and you are unable to reach your usual health care provider, you should return to the Emergency Department. We are available 24 hours a day. ANTONIA NOYOLA has been given the following list of patient education materials, prescriptions and follow-up instructions: Follow-up Instructions: With: Address: When: [employer] [address] [place] [address] Business (1) In 3 days 09/29/2023 With: Address: When: Tarun CRISTOFER [facility], [address] [place] [address] [place] [address] Business (1) In 3 days 09/29/2023 With: Address: When: XXXX [facility] [place] In 3 days In the event that this physician does not participate in your insurance network, please consult with your insurance company to find a nearby participating provider. Patient Education Materials: A MESSAGE TO ALL PATIENTS REGARDING OPIOIDS PRESCRIPTION OPIOIDS: WHAT YOU NEED TO KNOW Prescription opioids can be used to help relieve vzmqypxq-ei-xjiwqi pain and are often prescribed following a [...] and overdose. (more content not included)... Normal [facility] B hCG Qualon 09-26-2023 Beta HCG ( test) Ql Negative Normal [facility] Comment on above: Order Comment: FER dubois attempting lab work from IV start per Pt request. Phleb on standby if unable to get labs, [id number] 09/26/2023 14:42:36 EDT Performed By: #### 2 7971666, 63908353, 2178991, 6712821, 2035264 ####[facility] [address] [place] [address] CBC w/ Auto Diffon 4 Anisocytosis Ql (Bld) PRESENT Invalid Interpretation Code [facility] Comment on above: Performed By: #### 2 1735492, 52820795, 6443048, 2748820, 6117579 ####[address] [address] Basophils/100 WBC (Bld) 0.8 % Normal 0.0-2.0 [facility] Comment on above: Performed By: #### 2 9901395, 11066979, 1269145, 7667966, 4319279 ####[address] [address] Basophils/Leukocytes Auto (Bld) [Pure # fraction] 0.1 E9/L Normal 0.0-0.2 [facility] Comment on above: Performed By: #### 2 7647593, 70793561, 9416082, 4803148, 4872583 ####[address] [address] Eosinophils (Bld) [#/Vol] 0.0 E9/L Normal 0.0-0.5 [facility] Comment on above: Performed By: #### 2 8496576, 95379096, 9534893, 0782116, 8397155 ####[address] [address] Eosinophils/100 WBC (Bld) 0.0 % Normal 0.0-8.0 [facility] Comment on above: Performed By: #### 2 8676471, 11556043, 3649863, 6239465, 0175206 ####[address] [address] Hypochromia Auto Ql (Bld) PRESENT Invalid Interpretation Code [facility] Comment on above: Performed By: #### 2 4724344, 81806973, 8296327, 5699136, 3954111 ####[address] [address] Lymphocytes (Bld) [#/Vol] 1.6 E9/L Normal 1.0-4.0 [facility] Comment on above: Performed By: #### 2 0765617, 16333932, 2497865, 4356220, 5346242 ####[facility] [address] [place] [address] Lymphocytes/100 WBC (Bld) 22.7 % Normal 14.0-50.0 [facility] Comment on above: Performed By: #### 2 6236723, 33810564, 1032097, 9052907, 5229607 ####[address] [address] Microcytes Ql (Bld) PRESENT Invalid Interpretation Code [facility] Comment on above: Performed By: #### 2 8739709, 15406233, 5961062, 1936864, 3572618 ####[address] [address] Monocytes (Bld) [#/Vol] 0.3 E9/L Normal 0.2-1.0 [facility] Comment on above: Performed By: #### 2 0434110, 32182402, 5260114, 9258278, 0646159 ####[address] [address] Neutrophils (Bld) [#/Vol] 5.1 E9/L Normal 2.0-7.5 [facility] Comment on above: Performed By: #### 2 9843139, 01112873, 7399801, 7010263, 3797193 ####[address] [address] Neutrophils/100 WBC (Bld) 71.6 % Normal 36.0-75.0 [facility] Comment on above: Performed By: #### 2 8905137, 69584715, 5307171, 4314590, 1353925 ####[address] [address] Erythrocyte distribution width (RBC) [Ratio] 17.8 % High 10.9-14.2 [facility] Comment on above: Performed By: #### 2 8635603, 99431831, 4342351, 0157562, 5801636 ####[place] [address] Hematocrit (Bld) [Volume fraction] 36.2 % Normal 34.0-46.0 [facility] Comment on above: Performed By: #### 2 0641305, 87517645, 8128309, 1014677, 6812549 ####[place] [address] Hemoglobin (Bld) [Mass/Vol] 11.2 g/dL Low 12.0-16.0 [facility] Comment on above: Performed By: #### 2 3547537, 93433325, 6122602, 2069797, 3732243 ####[place] [address] MCH (RBC) [Entitic mass] 23.2 pg Low 27.0-34.0 [facility] Comment on above: Performed By: #### 2 4067498, 65030840, 7378080, 5756486, 2643640 ####[place] [address] MCHC (RBC) [Mass/Vol] 31.0 g/dL Low 31.4-36.0 [facility] Comment on above: Performed By: #### 2 6821557, 14054817, 2795244, 4709343, 7375263 ####[address] [address] MCV (RBC) [Entitic vol] 74.9 fL Low 80.0-100.0 [facility] Comment on above: Performed By: #### 2 9605445, 76699354, 4624343, 8936392, 2317885 ####[address] [address] Platelet mean volume (Bld) [Entitic vol] 7.5 fL Normal 6.4-10.8 [facility] Comment on above: Performed By: #### 2 7781063, 60058431, 3590469, 7821262, 1731939 ####[address] [address] Platelets (Bld) [#/Vol] 461.0 E9/L Normal 150.0-500.0 [facility] Comment on above: Performed By: #### 2 8754966, 21560095, 7212855, 7683790, 5631766 ####[address] [address] RBC (Bld) [#/Vol] 4.8 E12/L Normal 4.3-5.9 [facility] Comment on above: Performed By: #### 2 4072082, 96934924, 7242802, 1313942, 6124983 ####[address] [address] WBC corrected for nucl RBC Auto (Bld) [#/Vol] 7.1 E9/L Normal 4.0-11.0 [facility] Comment on above: Performed By: #### 2 7935762, 83563585, 6484413, 6253657, 1008110 ####[address] [address] CHEMISTRYOrdered By: SYSTEM SYSTEM on 09-26-2023 Amphetamines [...] 09-26-2023 Albumin [Mass/Vol] 4.7 g/dL Normal 3.3-5.0 [facility] Comment on above: Performed By: #### 2 1877967, 41145863, 2920720, 5532318, 1218613 ####[facility] [address] [place] [address] Albumin/Globulin (S) [Mass conc ratio] 1.3 Normal 1.1-2.2 [facility] Comment on above: Performed By: #### 2 8196418, 19829200, 5879852, 9404139, 2636162 ####[facility] [address] [place] [address] ALP [Catalytic activity/Vol] 61 Int._Unit/L Normal 21-98 [facility] Comment on above: Performed By: #### 2 1057185, 74815105, 9124330, 4485889, 2251957 ####[facility] [address] [place] [address] ALT No additional P-5'-P [Catalytic activity/Vol] 11 Int._Unit/L Normal 6-46 [facility] Comment on above: Performed By: #### 2 2782014, 79732686, 8211694, 9566970, 1979589 ####[place] [address] [place] [address] Anion gap [Moles/Vol] 15 mmol/L Normal 6-16 [facility] Comment on above: Performed By: #### 2 6081451, 15427469, 3782121, 2153919, 2318865 ####[address] [address] AST [Catalytic activity/Vol] 16 Int._Unit/L Normal 5-43 [facility] Comment on above: Performed By: #### 2 9454617, 17257791, 1052432, 6244473, 9562062 ####[facility] [address] [place] [address] Bilirubin [Mass/Vol] 0.8 mg/dL Normal 0.0-1.[address] [facility] Comment on above: Performed By: #### 2 4903312, 24680299, 1424364, 9670213, 3453692 ####[place] [address] [place] [address] Calcium [Mass/Vol] 9.7 mg/dL Normal 8.9-11.1 [facility] Comment on above: Performed By: #### 2 7036007, 49796301, 3911069, 4996356, 3341962 ####[place] [address] [place] [address] Chloride [Moles/Vol] 107 mmol/L Normal 101-[address] [facility] Comment on above: Performed By: #### 2 1255040, 87589033, 3237062, 2333426, 7948295 ####[address] [place] [address] CO2 [Moles/Vol] 20 mmol/L Low 21-31 [facility] Comment on above: Performed By: #### 2 7184935, 84302011, 9291355, 0504959, 7790220 ####[facility] [address] [place] [address] Creatinine [Mass/Vol] 0.7 mg/dL Normal 0.5-1.3 [facility] Comment on above: Performed By: #### 2 2521203, 93571223, 7597272, 2805447, 5407964 ####[facility] [address] [place] [address] Globulin (S) [Mass/Vol] 3.6 g/dL Normal 1.4-4.0 [facility] Comment on above: Performed By: #### 2 6741356, 63432718, 5744096, 8678846, 7039552 ####[facility] [address] [place] [address] Glucose [Mass/Vol] 120 mg/dL Normal 55-199 [facility] Comment on above: Performed By: #### 2 4629488, 68108369, 2999711, 3842252, 1204635 ####[facility] [address] [place] [address] Potassium [Moles/Vol] 3.8 mmol/L Normal 3.5-5.3 [facility] Comment on above: Performed By: #### 2 5672914, 91942159, 0923054, 9011611, 8286184 ####[facility] [address] [place] [address] Protein [Mass/Vol] 8.3 g/dL High 6.0-7.8 [facility] Comment on above: Performed By: #### 2 0002568, 30443650, 1157869, 6313319, 5028583 ####[facility] [address] [place] [address] Sodium [Moles/Vol] 138 mmol/L Normal 135-145 [facility] Comment on above: Performed By: #### 2 1083209, 98730835, 6474345, 8981548, 8031508 ####[facility] [address] [place] [address] Urea nitrogen [Mass/Vol] 5 mg/dL Normal 5-21 [facility] Comment on above: Performed By: #### 2 7123146, 93836321, 4522255, 8522726, 5940230 ####[facility] [address] [place] [address] Urea nitrogen/Creatinine [Mass ratio] 7 No Units Low 10-20 [facility] Comment on above: Performed By: #### 2 3707750, 49948438, 5750785, 4067790, 2699915 ####[facility] [address] [place] [address] CT Abdomen/Pelvis w/ Contras ton 09-26-2023 CT [...] 300 Contrast amount in ml's: 100 Normal [facility] Consent for Treatmenton 09-11 Consent for Treatment [id number] 4040 [id number] 0TIFF Normal [facility] Discharge Instructionson Discharge Instructions [id number] 0TIFF Normal [facility] ED Note-Physicianon 09-26-19 24 ED Note-Physician Basic Information Time Seen: Konstantin Penny DO 09/26/2023 14:25 Chief Complaint c/o nausea and left abdominal pain radiating to back that started back up yesterday. took bentyl ibuprofen and tramadol around noon with no relief. recent admission to [place] a week ago for intusseption, ovarian cyst, elevated lactic. denies V/D History of Present Illness 38 year old female presents to the emergency department with chief complaint of abdominal pain. patient states this pain started yesterday and has associated nausea without vomiting. Patient states she was admitted 10 days ago to [facility] for intussusception, ovarian cysts, and elevated lactic. She states she was admitted for one day and that she had another CT done that showed resolution of the intussusception. She reports she was discharged home but went back to [place] ED yesterday for similar pain. She reports [...] and noted. We did review workup from [facility] just recently. Risks and benefits of [...] differential diagnosis. We did refer her to [facility] for follow-up. Patient also was found to have some constipation on CT therefore we talked about dietary and lifestyle modifications and I did prescribe MiraLAX here as well. She is to follow-up in the outpatient setting return to ER symptoms should change or worsen she is comfortable with this plan. I, Dr. Penny had a xxpx-in-raba interaction with the patient. I personally performed [...] q12hr, # 20 tab(s), Refills(s) 0, Pharmacy: [facility]/pharmacy #[id number], 165, cm, 09/26/23 14:18:00 EDT, Height/Length Dosing, 81.2, kg, 09/26/23 14:18:00 EDT, Weight Dosing hyoscyamine, 0.125 mg = 1 tab(s), Oral, QID, X 5 day(s), # 20 tab(s), Refills(s) 0, Pharmacy: [facility]/pharmacy #[id number], 165, cm, 09/26/23 14:18:00 EDT, Height/Length Dosing, 81.2, kg, 09/26/23 14:18:00 EDT, Weight Dosing ketorolac, 30 mg = 1 mL, Injection, IV, Once, Stop date 09/26/23 15:40:00 EDT, STAT, Start date 09/26/23 15:40:00 EDT, 09/26/23 15:40:00 EDT polyethylene glycol 3350, 17 gm, Oral, Daily, X 7 day(s), # 119 gm, Refills(s) 0, Pharmacy: [facility]/pharmacy #[id number], 165, cm, 09/26/23 14:18:00 EDT, (more content not included)... Normal [facility] Comment on above: Result Comment: Elec [...] Lipase [Catalytic activity/Vol] 18 U/L Normal 13-58 [facility] Comment on above: Performed By: #### 2 1430641, 37796973, 9771994, 6557427, 4887193 ####[facility] [address] [place] [address] Outside Recordson 09-26-2023 Outside Records [id number]. [id number] Normal [facility] SEROLOGYOrdered By: Nohemi Taylor on 09-26-2023 Beta HCG ( test) Ql Negative (09/26/23 2:45 PM) Normal [facility] Man Sero U Drug Screenon 09-26-2023 Amphetamines Screen method >1000 ng/mL Ql (U) Negative Normal NEGATIVE [facility] Comment on above: Result Comment: Nega tive Cutoff: <1000 ng/mL Performed By: #### 2 545318 #### [facility] [address] [place] [address] Barbiturates Screen Ql (U) Negative Normal NEGATIVE [facility] Comment on above: Result Comment: Nega tive Cutoff: <200 ng/mL Performed By: #### 2 819344 #### [facility] [address] [place] [address] Benzodiazepines Ql (U) Negative Normal NEGATIVE [facility] Comment on above: Result Comment: Nega tive Cutoff: <200 ng/mL Performed By: #### 2 116304 #### [facility] [address] [place] [address] Cannabinoids Screen Ql (U) Negative Normal NEGATIVE [facility] Comment on above: Result Comment: Nega tive Cutoff: <50 ng/mL Performed By: #### 2 789587 #### [facility] [address] [place] [address] Cocaine Ql (U) Negative Normal NEGATIVE [facility] Comment on above: Result Comment: Nega tive Cutoff: <300 ng/mL Performed By: #### 2 383545 #### [facility] [address] [place] [address] Opiates Screen Ql (U) Negative Normal NEGATIVE [facility] Comment on above: Result Comment: Nega tive Cutoff: <300 ng/mL Performed By: #### 2 124456 #### [facility] [address] [place] [address] Phencyclidine Screen method >25 ng/mL Ql (U) Negative Normal NEGATIVE [facility] Comment on above: Result Comment: Nega tive Cutoff: <25 ng/mL These drug screen results are to be used for medical (i.e., treatment) purposes only. Unconfirmed drug screening results must not be used for non-medical purposes (e.g., employment testing, legal testing). Performed By: #### 2 150434 #### [facility] [address] [place] [address] U Fentanyl Negative Normal NEGATIVE [facility] Comment on above: Result Comment: Nega tive Cutoff: <5 ng/mL These drug screen results are to be used for medical (i.e., treatment) purposes only. Unconfirmed drug screening results must not be used for non-medical purposes (e.g., employment testing, legal testing). Performed By: #### 2 037458 #### [facility] [address] [place] [address] UA with Cult Rflxon 09-26-19 24 Bilirubin Ql (U) Negative Normal Negative [facility] Comment on above: Performed By: #### 4 [id number] #### [facility] [address] [place] [address] Clarity (U) Clear Normal Clear [facility] Comment on above: Performed By: #### 4 [id number] #### [facility] [address] [place] [address] Color (U) Colorless Abnormal Yellow [facility] Comment on above: Result Comment: Micr oscopic readings are only performed on those samples that meet specific criteria set forth by [facility]. Performed By: #### 4 [id number] #### [facility] [address] [place] [address] Glucose Ql (U) Negative Normal Negative [facility] Comment on above: Performed By: #### 4 [id number] #### [facility] [address] [place] [address] Hemoglobin Auto test strip (U) [Mass/Vol] Negative Normal Negative [facility] Comment on above: Performed By: #### 4 [id number] #### [facility] [address] [place] [address] Ketones Auto test strip Ql (U) Negative Normal Negative [facility] Comment on above: Performed By: #### 4 [id number] #### [facility] [address] [place] [address] Leukocyte esterase Auto test strip Ql (U) Negative Normal Negative [facility] Comment on above: Performed By: #### 4 [id number] #### [facility] [address] [place] [address] Nitrite Auto test strip Ql (U) Negative Normal Negative [facility] Comment on above: Performed By: #### 4 [id number] #### [facility] [address] [place] [address] pH (U) 6.0 [pH] Invalid Interpretation Code 5.0-9.0 [facility] Comment on above: Performed By: #### 4 [id number] #### [facility] [address] [place] [address] Protein Ql (U) Negative Normal Negative [facility] Comment on above: Performed By: #### 4 [id number] #### [facility] [address] [place] [address] Specific gravity (U) [Rel density] 1.004 Invalid Interpretation Code 1.005-1.030 [facility] Comment on above: Performed By: #### 4 [id number] #### [facility] [address] [place] [address] Urobilinogen (U) [Mass/Vol] Negative Normal Negative [facility] Comment on above: Performed By: #### 4 [id number] #### [facility] [address] [place] [address] Type of Urine collection method Clean Catch Normal [facility] Comment on above: Performed By: #### 4 [id number] #### [facility] [address] [place] [address] URINALYSISOrdered By: SYSTEM SYSTEM on 09-26-2023 Bilirubin Ql (U) Negative Normal Negativemg/ dL [facility] UA Auto SS Clarity (U) Clear (09/26/23 2:49 PM) Normal Clear [facility] UA Auto SS Color (U) Colorless 3 *ABN* (09/26/23 2:49 PM) Invalid Interpretation Code Yellow [facility] UA Auto SS Comment on above: Interpretive Data: M icroscopic readings are only performed on those samples that meet specific criteria set forth by [facility]. Glucose Ql (U) Negative Normal [...] Protein Ql (U) Negative Normal Negativemg/ dL [facility] UA Auto SS Specific gravity (U) [Rel density] 1.004 *NA* (09/26/23 2:49 PM) Invalid Interpretation Code 1.005 - 1.030 [facility] Auto SS Urobilinogen (U) [Mass/Vol] Negative Normal Negativemg/ dL [facility] UA Auto SS URINALYSISOrdered By: Konstantin dillard on 09-26-2023 UA Spec Desc Clean Catch (09/26/23 2:49 PM) Normal [facility] UA Auto SS Work Phone: US Pelvis [...] Transvaginal Ultrasound Performed Uterus Position Anteverted Normal [facility] US Transvaginal Non-OBon US Transvaginal Non-OB Exam Date/Time: 09/26/2023 17:41 EDT Reason for Exam: Pelvic pain Report Please see ultrasound pelvis non-OB complete report Ordering Provider: Konstantin Penny FINAL REPORT Dictated: 09/26/2023 5:53 pm Chad Mo DO Signed (Electronic Signature): 09/26/2023 5:53 pm Signed by: Chad Mo DO Transcribed by: MILLIE Technologist: HAILEY Normal [facility] eGFRon 09-26-2023 eGFR 114 mL/min/1.73 m2 Normal >=59 [facility] Comment on above: Order Comment: Order added by Discern Expert. Performed By: #### 2 [id number], [id number], 7821191, 2454857, 8304397 ####[facility] [address] [place] [address] CBC With Platelet and Differ entialon 09-06-2023 Basophils (Bld) [#/Vol] 0.1 10*3/uL Normal 0.0-0.2 [facility] Comment on above: Performed By: #### C BCWD #### [facility] [address] [place] [address] Basophils/100 WBC (Bld) 0.6 % Normal [facility] Comment on above: Performed By: #### C BCWD #### [facility] [address] [place] [address] Eosinophils (Bld) [#/Vol] 0.1 10*3/uL Normal 0.0-0.7 [facility] Comment on above: Performed By: #### C BCWD #### [facility] [address] [place] [address] Eosinophils/100 WBC (Bld) 0.6 % Normal [facility] Comment on above: Performed By: #### C BCWD #### [facility] [address] [place] [address] Erythrocyte distribution width (RBC) [Ratio] 15.9 % Critically high 11.5-14.5 [facility] Comment on above: Performed By: #### C BCWD #### [facility] [address] [place] [address] Hematocrit (Bld) [Volume fraction] 34.5 % Low 37.0-47.0 [facility] Comment on above: Performed By: #### C BCWD #### [facility] [address] [place] [address] Hemoglobin (Bld) [Mass/Vol] 10.1 g/dL Low 12.0-16.0 [facility] Comment on above: Performed By: #### C BCWD #### [facility] [address] [place] [address] Lymphocytes (Bld) [#/Vol] 4.4 10*3/uL Normal 1.0-4.8 [facility] Comment on above: Performed By: #### C BCWD #### [facility] [address] [place] [address] Lymphocytes/100 WBC (Bld) 54.2 % Normal [facility] Comment on above: Performed By: #### C BCWD #### [facility] [address] [place] [address] MCH (RBC) [Entitic mass] 22.9 pg Low 27.0-31.3 [facility] Comment on above: Performed By: #### C BCWD #### [facility] [address] [place] [address] MCHC 29.3 % Low 33.0-37.0 [facility] Comment on above: Performed By: #### C BCWD #### [facility] [address] [place] [address] MCV (RBC) [Entitic vol] 78.2 fL Low 79.4-94.8 [facility] Comment on above: Performed By: #### C BCWD #### [facility] [address] [place] [address] Monocytes (Bld) [#/Vol] 0.5 10*3/uL Normal 0.2-0.8 [facility] Comment on above: Performed By: #### C BCWD #### [facility] [address] [place] [address] Monocytes/100 WBC (Bld) 6.5 % Normal [facility] Comment on above: Performed By: #### C BCWD #### [facility] [address] [place] [address] Neutrophils (Bld) [#/Vol] 3.1 10*3/uL Normal 1.4-6.5 [facility] Comment on above: Performed By: #### C BCWD #### [facility] [address] [place] [address] Neutrophils/100 WBC (Bld) 37.9 % Normal [facility] Comment on above: Performed By: #### C BCWD #### [facility] [address] [place] [address] Platelets (Bld) [#/Vol] 482 10*3/uL Critically high 130-40 0 [facility] Comment on above: Performed By: #### C BCWD #### [facility] [address] [place] [address] RBC (Bld) [#/Vol] 4.41 10*6/uL Normal 4.20-5.40 [facility] Comment on above: Performed By: #### C BCWD #### [facility] [address] [place] [address] WBC (Bld) [#/Vol] 8.1 10*3/uL Normal 4.8-10.8 [facility] Comment on above: Performed By: #### C BCWD #### [facility] [address] [place] [address] Comprehensive Metabolic Pane van 09-06-2023 Albumin [Mass/Vol] 4.4 g/dL Normal 3.5-4.6 [facility] Comment on above: Performed By: #### C MP #### [facility] [address] [place] [address] ALP [Catalytic activity/Vol] 72 U/L Normal 40-130 [facility] Comment on above: Performed By: #### C MP #### [facility] [address] [place] [address] ALT [Catalytic activity/Vol] 15 U/L Normal 0-33 [facility] Comment on above: Performed By: #### C MP #### [facility] [address] [place] [address] Anion gap [Moles/Vol] 11 mmol/L Normal 9-15 [facility] Comment on above: Performed By: #### C MP #### [facility] [address] [place] [address] AST [Catalytic activity/Vol] 18 U/L Normal 0-35 [facility] Comment on above: Performed By: #### C MP #### [facility] [address] [place] [address] Bilirubin [Mass/Vol] 0.4 mg/dL Normal 0.2-0.7 [facility] Comment on above: Performed By: #### C MP #### [facility] [address] [place] [address] Calcium [Mass/Vol] 9.5 mg/dL Normal 8.5-9.9 [facility] Comment on above: Performed By: #### C MP #### [facility] [address] [place] [address] Chloride [Moles/Vol] 102 mmol/L Normal 95-107 [facility] Comment on above: Performed By: #### C MP #### [facility] [address] [place] [address] CO2 [Moles/Vol] 24 mmol/L Normal 20-31 [facility] Comment on above: Performed By: #### C MP #### [facility] [address] [place] [address] Creatinine [Mass/Vol] 0.59 mg/dL Normal 0.50-0.90 [facility] Comment on above: Performed By: #### C MP #### [facility] [address] [place] [address] GFR >90.0 Normal >60 [facility] Comment on above: Result Comment: Pedi atric [...] secretion. Performed By: #### C MP #### [facility] [address] [place] [address] Globulin (S) [Mass/Vol] 3.5 g/dL Normal 2.3-3.5 [facility] Comment on above: Performed By: #### C MP #### [facility] [address] [place] [address] Glucose [Mass/Vol] 98 mg/dL Normal 70-99 [facility] Comment on above: Performed By: #### C MP #### [facility] [address] [place] [address] Potassium [Moles/Vol] 3.2 mmol/L Low 3.4-4.9 [facility] Comment on above: Performed By: #### C MP #### [facility] [address] [place] [address] Protein [Mass/Vol] 7.9 g/dL Normal 6.3-8.0 [facility] Comment on above: Performed By: #### C MP #### [facility] [address] [place] [address] Sodium [Moles/Vol] 137 mmol/L Normal 135-144 [facility] Comment on above: Performed By: #### C MP #### [facility] [address] [place] [address] Urea nitrogen [Mass/Vol] 4 mg/dL Low 6-20 [facility] Comment on above: Performed By: #### C MP #### [facility] [address] [place] [address] US NON OB TRANSVAGINALon US NON OB [...] Jessy Campos MD 09/06/23 Final result Normal [facility] US PELVIS COMPLETEon 09-05- 024 US PELVIS [...] Jessy Campos MD 09/06/23 Final result Normal [facility] Urinalysis, reflex to cultur silvino 09-06-2023 Urine Reflexed to Culture Not Indicated Normal [facility] Comment on above: Performed By: #### U AR #### [facility] [address] [place] [address] Bilirubin Ql (U) Negative Normal Negative [facility] Comment on above: Performed By: #### U AR #### [facility] [address] [place] [address] Clarity (U) Clear Normal Clear [facility] Comment on above: Performed By: #### U AR #### [facility] [address] [place] [address] Color (U) Yellow Normal Straw/[place] [facility] Comment on above: Performed By: #### U AR #### [facility] [address] [place] [address] Glucose Ql (U) >=1000 Abnormal Negative [facility] Comment on above: Performed By: #### U AR #### [facility] [address] [place] [address] Hemoglobin Ql (U) TRACE Abnormal Negative [facility] Comment on above: Performed By: #### U AR #### [facility] [address] [place] [address] Ketones Ql (U) >=80 Abnormal Negative [facility] Comment on above: Performed By: #### U AR #### [facility] [address] [place] [address] Leukocyte esterase Test strip Ql (U) Negative Normal Negative [facility] Comment on above: Performed By: #### U AR #### [facility] [address] [place] [address] Nitrite Ql (U) Negative Normal Negative [facility] Comment on above: Performed By: #### U AR #### [facility] [address] [place] [address] pH (U) 5.0 [pH] Normal 5.0-9.0 [facility] Comment on above: Performed By: #### U AR #### [facility] [address] [place] [address] Protein Ql (U) TRACE Abnormal Negative [facility] Comment on above: Performed By: #### U AR #### [facility] [address] [place] [address] Specific gravity (U) [Rel density] 1.025 Normal 1.005-1.03 [facility] Comment on above: Performed By: #### U AR #### [facility] [address] [place] [address] Urobilinogen Qn (U) 0.2 {Ivone'U}/dL Normal < 2.0 [facility] Comment on above: Performed By: #### U AR #### [facility] [address] [place] [address] Urine Microscopicon 09-06-19 24 Bacteria LM.HPF (Urine sed) [#/Area] Negative Normal Negative [facility] Comment on above: Performed By: #### U ARELIS #### [facility] [address] [place] [address] Urine Epithelial Cells Auto 0-2 Normal 0-5 [facility] Comment on above: Performed By: #### U ARELIS #### [facility] [address] [place] [address] Urine Hyaline Casts Auto 0-1 Normal 0-5 [facility] Comment on above: Performed By: #### U ARELIS #### [facility] [address] [place] [address] Urine RBC Auto 3-5 Abnormal 0-5 [facility] Comment on above: Performed By: #### U ARELIS #### [facility] [address] [place] [address] Urine WBC Auto 0-2 Normal 0-5 [facility] Comment on above: Performed By: #### U [facility] #### [facility] [address] [place] [address] ED Note-Physicianon 08-01-19 ED Note-Physician Basic Information [...] endometritis for which she follows with a ASSISTED LIVING ADMINISTRATOR at the [facility]. Review of Systems A 10 point review [...] for discharge home and follow-up with her ASSISTED LIVING ADMINISTRATOR. Short course of pain medication as prescribed after an OARRS review for this patient. Return precautions were discussed. All questions were answered. The patient was discharged home for outpatient follow-up for her acute on chronic pain. Assessment/Plan Abdominal pain, acute (R10.9: Unspecified abdominal pain) Ordered: acetaminophen-oxycodon e, 1 tab(s), Oral, q6hr Pain 8-10 for 3 day(s), 12 tab(s), Refill(s) 0, [id number], 165.1, cm, 07/31/23 15:42:00 EST, Height/Length Dosing, [...] Discharge D (more content not included)... Normal [facility] Comment on above: Result Comment: Elec tronically Signed By: Jignesh Dumont DO.br\Date and Time Signed: 08/01/23 09:21 EST B hCG Qualon 07-31-2023 Beta HCG ( test) Ql Negative Normal [facility] Comment on above: Performed By: #### 2 887390, 5942300, 93559113, 91282390, 4417902 ####[facility] [address] [place] [address] BMPon 07-31-2023 Anion gap [Moles/Vol] 15 mmol/L Normal 6-16 [facility] Comment on above: Performed By: #### 2 440707, 4034514, 86517342, 05971135, 6487606 ####[facility] [address] [place] [address] BUN/Creat Ratio 4 No Units Low 10-20 [facility] Comment on above: Performed By: #### 2 749887, 5898117, 31431315, 75030788, 8108366 ####[facility] [address] [place] [address] Calcium [Mass/Vol] 9.6 mg/dL Normal 8.9-11.1 [facility] Comment on above: Performed By: #### 2 362527, 2658943, 43153644, 98726933, 2332152 ####[facility] [address] [place] [address] Chloride [Moles/Vol] 106 mmol/L Normal 101-[address] [facility] Comment on above: Performed By: #### 2 939600, 2929663, 18309771, 49089410, 9543857 ####[facility] [address] [place] [place] [address] CO2 [Moles/Vol] 21 mmol/L Normal 21-31 [facility] Comment on above: Performed By: #### 2 158368, 2263374, 00697080, 40192835, 9951558 ####[facility] [address] [place] [address] Creatinine [Mass/Vol] 0.9 mg/dL Normal 0.5-1.3 [facility] Comment on above: Performed By: #### 2 394318, 8558866, 87593674, 95667646, 3509064 ####[facility] [address] [place] [address] Glucose [Mass/Vol] 109 mg/dL Normal 55-199 [facility] Comment on above: Performed By: #### 2 102894, 2415215, 83995539, 65892755, 7960485 ####[facility] [address] [place] [address] Potassium [Moles/Vol] 3.6 mmol/L Normal 3.5-5.3 [facility] Comment on above: Performed By: #### 2 389924, 9515216, 82615608, 45546608, 9256522 ####[facility] [address] [place] [address] Sodium [Moles/Vol] 138 mmol/L Normal 135-145 [facility] Comment on above: Performed By: #### 2 612365, 0398830, 63994995, 28385631, 6523814 ####[place] [place] [place] [address] Urea nitrogen [Mass/Vol] mg/dL Low 5-21 [facility] Comment on above: Performed By: #### 2 077641, 0975657, 65067073, 27750659, 0001634 ####[address] [place] [address] CBC w/ Auto Diffon 4 Anisocytosis Ql (Bld) PRESENT Invalid Interpretation Code [facility] Comment on above: Performed By: #### 2 969817, 5215708, 41936898, 04486201, 2642880 ####[address] [address] Microcyte PRESENT Invalid Interpretation Code [facility] Comment on above: Performed By: #### 2 213542, 9101512, 55441299, 74561459, 7916039 ####[address] [place] [address] RBC morphology finding Nom (Bld) SEE MORPHOLOGY Invalid Interpretation Code [facility] Comment on above: Performed By: #### 2 317743, 4757363, 17960380, 82121421, 7070387 ####[address] [place] [address] Basophil Absolute 0.1 E9/L Normal 0.0-0.2 [facility] Comment on above: Performed By: #### 2 978699, 5960464, 52859322, 46686852, 2569831 ####[address] [address] Basophils/100 WBC (Bld) 1.1 % Normal 0.0-2.0 [facility] Comment on above: Performed By: #### 2 074130, 9503677, 29526135, 58615927, 8991302 ####[address] [address] Eos Absolute 0.0 E9/L Normal 0.0-0.5 [facility] Comment on above: Performed By: #### 2 122785, 8745260, 47852290, 57356118, 7870255 ####[address] [address] Eosinophils/100 WBC (Bld) 0.2 % Normal 0.0-8.0 [facility] Comment on above: Performed By: #### 2 535709, 7586649, 97059060, 53339838, 4336735 ####[address] [address] Erythrocyte distribution width (RBC) [Ratio] 16.5 % High 10.9-14.2 [facility] Comment on above: Performed By: #### 2 407361, 2108574, 47425017, 20951781, 4325110 ####[address] [address] Hematocrit (Bld) [Volume fraction] 36.0 % Normal 34.0-46.0 [facility] Comment on above: Performed By: #### 2 293235, 9366147, 47193212, 03639751, 0333132 ####[address] [address] Hemoglobin (Bld) [Mass/Vol] 11.4 g/dL Low 12.0-16.0 [facility] Comment on above: Performed By: #### 2 467113, 2674649, 43143413, 01459884, 0443070 ####[facility] [address] [place] [address] Lymph Absolute 2.2 E9/L Normal 1.0-4.0 [facility] Comment on above: Performed By: #### 2 539098, 4625306, 72410690, 67038460, 3925694 ####[facility] [address] [place] [address] Lymphocytes/100 WBC (Bld) 25.3 % Normal 14.0-50.0 [facility] Comment on above: Performed By: #### 2 849991, 2752060, 99650392, 08567160, 5148613 ####[facility] [address] [place] [address] MCH (RBC) [Entitic mass] 24.0 pg Low 27.0-34.0 [facility] Comment on above: Performed By: #### 2 059175, 3744649, 98456071, 22677918, 5276542 ####[facility] [address] [place] [address] MCHC (RBC) [Mass/Vol] 31.9 g/dL Normal 31.4-36.0 [facility] Comment on above: Performed By: #### 2 504045, 3912237, 89605311, 16601800, 2158667 ####[facility] [address] [place] [address] MCV (RBC) [Entitic vol] 75.2 fL Low 80.0-100.0 [facility] Comment on above: Performed By: #### 2 177647, 0439379, 75052991, 96422400, 0273377 ####[facility] [address] [place] [address] [place] Absolute 0.5 E9/L Normal 0.2-1.0 [facility] Comment on above: Performed By: #### 2 533954, 3992198, 35930981, 35293645, 1088403 ####[facility] [address] [place] [address] Monocytes/100 WBC (Bld) 5.4 % Normal 4.0-14.0 [facility] Comment on above: Performed By: #### 2 009553, 8183266, 31004278, 53096118, 3771381 ####[facility] [address] [place] [address] Neutro Absolute 5.9 E9/L Normal 2.0-7.5 [facility] Comment on above: Performed By: #### 2 732626, 1526636, 95075857, 79571532, 8280016 ####[address] [address] Neutro Auto 68.0 % Normal 36.0-75.0 [facility] Comment on above: Performed By: #### 2 625781, 4747592, 20394602, 01617243, 2897589 ####[address] [address] Platelet 612.0 E9/L High 150.0-500.0 [facility] Comment on above: Performed By: #### 2 613243, 9405960, 13537794, 31154953, 8235915 ####[address] [address] Platelet mean volume (Bld) [Entitic vol] 7.4 fL Normal 6.4-10.8 [facility] Comment on above: Performed By: #### 2 879648, 5288301, 45798370, 29618376, 5411125 ####[address] [place] [address] RBC 4.7 E12/L Normal 4.3-5.9 [facility] Comment on above: Performed By: #### 2 740522, 0962974, 47054892, 35244006, 7666038 ####[facility] [address] [place] [address] WBC 8.6 E9/L Normal 4.0-11.0 [facility] Comment on above: Performed By: #### 2 923467, 5406855, 00859559, 13843060, 3814392 ####[facility] [address] [place] [address] CHEMISTRYOrdered By: SYSTEM SYSTEM on 07-31-2023 Albumin [...] Oral contrast amount in ml's: 0 Normal [facility] Discharge Instructionson Discharge Instructions [id number] Normal [facility] ED Clinical Summaryon 2023 ED Clinical Summary [place] [id number] ED Clinical Summary Person Information Name: ANTONIA NOYOLA/[facility] Age: 38 Years : 1985 Sex: Female Language: Danish PCP: NONE, XXXX Marital Status: Visit Id: [...] 07/31/2023 18:03:59 ADDRESS: [address] [place] [id number] PHYS DOC NOTES: MEDICAL INFORMATION: Prescriptions Given: New Medications [id number], [address] [place] [id number], [phone] acetaminophen-oxycodon e (Percocet 5 mg-325 mg oral [...] up: With: Address: When: Follow-up with your ASSISTED LIVING ADMINISTRATOR at [facility] In 3 days 08/03/2023 Comments: Call the [...] worsening symptoms. DIAGNOSIS: Abdominal pain, acute Normal [facility] ED Patient Education Noteon 07-31-2023 ED [...] these instructions at home: Medicines ? Take fqug-ynl-vvvntzp and prescription medicines only as told by [...] your condition for any changes. ? Take vmzm-nkr-bclfdwi and prescription medicines only as told by [...] Reviewed: 10/08/2019 Else[employer] Patient Education ? 2022 [employer]. Normal [facility] ED Patient Summaryon 024 ED Patient Summary [address] [address] Patient Discharge Instructions Person Information Name: ANTONIA NOYOLA Age: 38 Years Arrival Date: 07/31/2023 15:33:06 Discharge Diagnosis: Abdominal pain, acute Primary Care Physician: NONE, XXXX Provider Information Primary Provider: Jignesh Dumont DO Advanced Admitting Office Escort:Shazia The exam and treatment you received in the Emergency Department were for an urgent problem and are not intended as complete care. It is important that you follow up with a doctor, nurse practitioner, or physician?s chef assistant for ongoing care. If your symptoms [...] Instructions: With: Address: When: Follow-up with your ASSISTED LIVING ADMINISTRATOR at [facility] In 3 days 08/03/2023 Comments: Call the [...] opioids can be used to help relieve ycrsxcsf-yi-tgqvtt pain and are often prescribed following a [...] any and al (more content not included)... [facility] HEMATOLOGYOrdered By: Sloane Mazariegos on [...] 80.0 - 100.0 fL Remisol Heme [place] Absolute 0.5 E9/L Normal 0.2 - 1.0 [...] 07-31-2023 Albumin [Mass/Vol] 4.6 g/dL Normal 3.3-5.0 [facility] Comment on above: Performed By: #### 2 948562, 9340640, 77652073, 38844107, 9718307 ####[facility] [address] [place] [address] Albumin/Globulin [Mass ratio] 1.4 {ratio} Normal 1.1-2.2 [facility] Comment on above: Performed By: #### 2 224367, 9656130, 43521474, 33972932, 4968703 ####[facility] [address] [place] [address] Alk Phos 73 Int._Unit/L Normal 21-98 [facility] Comment on above: Performed By: #### 2 515552, 1134170, 52537133, 81764573, 9076422 ####[facility] [address] [facility] [place] [address] ALT 10 Int._Unit/L Normal 6-46 [facility] Comment on above: Performed By: #### 2 779777, 7222817, 49911498, 66249260, 8729126 ####[facility] [address] [place] [address] AST 11 Int._Unit/L Normal 5-43 [facility] Comment on above: Performed By: #### 2 317765, 1352840, 85755448, 02794137, 7625486 ####[facility] [address] [place] [address] Bili Direct 0.1 mg/dL Normal 0.0-0.4 [facility] Comment on above: Performed By: #### 2 437258, 1286392, 61586825, 40918634, 3108151 ####[facility] [address] [place] [address] Bili Indirect 0.4 mg/dL Normal 0.1-0.9 [facility] Comment on above: Performed By: #### 2 665166, 4640585, 41979801, 72102353, 1755714 ####[facility] [address] [place] [address] Bili Total 0.5 mg/dL Normal 0.0-1.1 [facility] Comment on above: Performed By: #### 2 289835, 1308777, 68123054, 50703147, 2133554 ####[facility] [address] [place] [address] Globulin (S) [Mass/Vol] 3.3 g/dL Normal 1.4-4.0 [facility] Comment on above: Performed By: #### 2 799541, 8679534, 03490546, 47736618, 2123435 ####[facility] [address] [place] [address] Protein [Mass/Vol] 7.9 g/dL High 6.0-7.8 [facility] Comment on above: Performed By: #### 2 604210, 4194541, 96525027, 12625319, 2166492 ####[facility] [address] [place] [address] Monitor Recordon 07-31-2023 Monitor Record [id number] 20 [id number]#1. 00TIFF Normal [facility] SEROLOGYOrdered By: Felicity patel on 07-31-2023 Beta HCG ( test) Ql Negative (07/31/23 4:20 PM) Normal [facility] Man Sero UA With Cult Reflexon 2023 Bacteria LM Ql (Urine sed) TRACE Normal Trace [facility] Comment on above: Performed By: #### 1 0422584 ####[facility] [address] [place] [address] Bilirubin Ql (U) Negative Normal Negative [facility] Comment on above: Performed By: #### 1 0889705 ####[facility] [address] [place] [address], [place] [address] Clarity (U) CLEAR Normal Clear [facility] Comment on above: Performed By: #### 1 6656875 ####[facility] [address] [place] [address], [place] [address] Color (U) YELLOW Normal Yellow [facility] Comment on above: Performed By: #### 1 7661269 ####[facility] [address] [place] [address], [place] [address] Epithelial cells.squamous LM.HPF (Urine sed) [#/Area] 0-2 Normal 0-2 [facility] Comment on above: Performed By: #### 1 8498375 ####[facility] [address] [place] [address], [place] [address] Glucose Test strip (U) [Mass/Vol] Negative Normal Negative [facility] Comment on above: Performed By: #### 1 3909746 ####[facility] [address] [facility] [place] [address] Hemoglobin Ql (U) Negative Normal Negative [facility] Comment on above: Performed By: #### 1 0106606 ####[facility] [address] [facility] [place] [address] Ketones (U) [Mass/Vol] 1+ Abnormal Negative Fi [facility] Comment on above: Performed By: #### 1 0804072 ####[facility] [address] [facility] [place] [address] Scandia.plasma/Scandia. RBC (Bld) [Mass ratio] 0-3 Normal 0-3 [facility] Comment on above: Performed By: #### 1 2028328 ####[facility] [address] [facility] [address] Mucus Ql (Urine sed) TRACE Normal [facility] Comment on above: Performed By: #### 1 3316429 ####[facility] [place] [address] [address] Nitrite Ql (U) Negative Normal Negative [facility] Comment on above: Performed By: #### 1 5099280 ####[address] [address] pH (U) 8.5 [pH] Invalid Interpretation Code 5.0-9.0 [facility] Comment on above: Performed By: #### 1 7210891 ####[address] [address] Protein (U) [Mass/Vol] Negative Normal Negative [facility] Comment on above: Performed By: #### 1 0358487 ####[address] [address] Specific gravity (U) [Rel density] 1.015 Invalid Interpretation Code 1.005-1.030 [facility] Comment on above: Performed By: #### 1 5139705 ####[address] [address] Type of Urine collection method Clean Catch Normal [facility] Comment on above: Performed By: #### 1 2824343 ####[address] [address] Urobilinogen Qn (U) 0.2 {Ivone'U}/dL Normal 0.0-1.0 [facility] Comment on above: Performed By: #### 1 6535786 ####[address] [address] WBC Auto Ql (U) Negative Normal Negative [facility] Comment on above: Performed By: #### 1 2340089 ####[address] [address] WBC LM.HPF (Urine sed) [#/Area] 0-5 Normal 0-5 [facility] Comment on above: Performed By: #### 1 0539251 ####[address] [address] URINALYSISOrdered By: Felicity George on 07-31-2023 Bacteria [...] Interpretation Code Negative [facility] UA Auto SS Scandia.plasma/Scandia. RBC (Bld) [Mass ratio] 0-3 /HPF Normal [...] [facility] UA Auto SS Urobilinogen Qn (U) 0.8532264 {Ivone'U}/dL Normal 0.0 - 1.0 EU/dL [facility] UA Auto SS WBC Auto Ql (U) Negative (07/31/23 4:30 PM) Normal Negative [facility] UA Auto SS WBC LM.HPF (Urine sed) [#/Area] 0-5 /HPF Normal 0-5/HPF [facility] UA Auto SS eGFRon 07-31-2023 eGFR 85 mL/min/1.73 m2 Normal >=59 [facility] Comment on above: Order Comment: Order added by Discern Expert. Performed By: #### 2 417714, 0785193, 55016915, 64850498, 1186470 ####[facility] [address] [place] [address] ED NOTEon 06-23-2023 ED NOTE HNO ID: [id number] Author: DENNIS CAMARGO RN Service: ? Author Type: Registered Nurse Type: ED Notes Filed: 06/22/2023 22:17 Note Text: Patient given verbal and written D/C instructions. Medications and follow up care discussed. Instructed to return to ED if conditions and symptoms persist or worsen. All questions addressed and answered pt verbalized understanding. Pt discharged to [facility], [facility] noted. Normal [facility] HAV IgM Ser Qlon 06-23-2023 HAV IgM Ql (S) Negative Normal Negative [facility] Comment on above: Order Comment: Speci men Type: BLOOD SPECIMENOrdering Facility: [facility] Address: [address] [place] [address] Result Comment: No e vidence of recent infection with Hepatitis A virus. Performed By: #### 3 1204-1, 5195-3, 08551-7 ####[facility] LABCLIA [id number] [address] [place] HBV core IgM Ser Qlon 2023 HBV core IgM Ql (S) Negative Normal Negative [facility] Comment on above: Order Comment: [facility] Type: BLOOD SPECIMENOrdering Facility: [facility] Address: [address] [place] [address] Result Comment: No e vidence of recent infection with Hepatitis B virus. Should recent infection be suspected, repeat testing may be considered 3-4 weeks after this draw. Performed By: #### 3 1204-1, 5195-3, 62031-6 ####[facility] LABCLIA [id number] [address] [address] [place] HBV surface Ag Ser Qlon 06-13 HBV surface Ag Ql (S) Negative Normal Negative [facility] Comment on above: Order Comment: Speci zoraida Type: BLOOD SPECIMENOrdering Facility: [facility] Address: [address] [place] [address] Performed By: #### 3 1204-1, 5195-3, 04894-2 ####[facility] LABCLIA [id number] [address] [place] HCV RNA SerPl SENAIT+probe-aCnc on 06-23-2023 HCV RNA SENAIT+probe Qn Not detected Normal HCV RNA not detected by PCR. [facility] Comment on above: Order Comment: Roselyn conwya Type: BLOOD SPECIMEN [facility] Address: [address] [place] [address] Performed By: #### 1 1011-4 #### [facility] LAB CLIA [id number] [place] ALLIED HEALTHon 06-22-2023 ALLIED HEALTH HNO ID: [id number] Author: SELENA AMADOR RT(R) Service: Radiology Author [...] DATE: June 22, 2023 TIME: 7:46 PM [facility] ALLIED HEALTH HNO ID: [id number] Author: DELLA BEST RDMS, RVT Service: Radiology Author Type: Gill Box Tender Type: Allied Health Filed: 06/22/2023 18:55 Note [...] RDMS, RVT June 22, 2023 6:55 PM [facility] CBC W Auto Differential pane l (Bld)on 06-22-2023 Basophils (Bld) [#/Vol] 0.03 10*3/uL Normal <0.11 [facility] Comment on above: Order Comment: Speci men Type: BLOOD SPECIMENOrdering Facility: [facility] Address: [address] [place] [address] Performed By: #### 5 7021-8 ####[facility] LABORATORYCLIA [id number] [address] [place], [place] [address] [place] Basophils/100 WBC (Bld) 0.6 % Normal [facility] Comment on above: Order Comment: Speci men Type: BLOOD SPECIMENOrdering Facility: [facility] Address: [address] [place] [address] Performed By: #### 5 7021-8 ####[facility]OLOG[facility] LABORATORYCLIA [id number] [address] [place] [address] [place] Differential cell count method Nom (Bld) Auto Normal [facility] Comment on above: Order Comment: Speci men Type: BLOOD SPECIMENOrdering Facility: [facility] Address: [address] [place] [address] Performed By: #### 5 7021-8 ####SC[facility]OLOG[facility] LABORATORYCLIA [id number] [place] [address] [place] Eosinophils (Bld) [#/Vol] 0.03 10*3/uL Normal <0.46 [facility] Comment on above: Order Comment: Speci men Type: BLOOD SPECIMENOrdering Facility: [facility] Address: [address] [place] [address] Performed By: #### 5 7021-8 ####SC[facility]OLOG[facility] LABORATORYCLIA [id number] [place] [address] [place] Eosinophils/100 WBC (Bld) 0.6 % Normal [facility] Comment on above: Order Comment: Speci men Type: BLOOD SPECIMENOrdering Facility: [facility] Address: [address] [place] [address] Performed By: #### 5 7021-8 ####SCIENTOLOGY LABORATORYCLIA [id number] [address] [place] [address] [place] Erythrocyte distribution width (RBC) [Ratio] 16.5 % High 11.5-15.0 [facility] Comment on above: Order Comment: Speci men Type: BLOOD SPECIMENOrdering Facility: [facility] Address: [address] [place] [address] Performed By: #### 5 7021-8 ####SCIENTOLOG[facility] LABORATORYCLIA [id number] [place] [address] [place] Hematocrit (Bld) [Volume fraction] 37.7 % Normal 36.0-46.0 [facility] Comment on above: Order Comment: Speci men Type: BLOOD SPECIMENOrdering Facility: [facility] Address: [address] [place] [address] Performed By: #### 5 7021-8 ####SCIENTOLOG[facility] LABORATORYCLIA [id number] [place] [address] [place] Hemoglobin (Bld) [Mass/Vol] 11.7 g/dL Normal 11.5-15.5 [facility] Comment on above: Order Comment: Speci men Type: BLOOD SPECIMENOrdering Facility: [facility] Address: [address] [place] [address] Performed By: #### 5 7021-8 ####SCIENTOLOGY LABORATORYCLIA [id number] [address] [place] Immature granulocytes (Bld) [#/Vol] 10*3/uL Normal <0.10 [facility] Comment on above: Order Comment: Speci men Type: BLOOD SPECIMENOrdering Facility: [facility] Address: [address] [place] [address] Performed By: #### 5 7021-8 ####SCIENTOLOG[facility] LABORATORYCLIA [id number] [address] [place] Immature granulocytes/100 WBC (Bld) 0.4 % Normal [facility] Comment on above: Order Comment: Speci men Type: BLOOD SPECIMENOrdering Facility: [facility] Address: [address] [place] [address] Performed By: #### 5 7021-8 ####SCIENTOLOG[facility] LABORATORYCLIA [id number] [address] [place] [address] [place] Lymphocytes (Bld) [#/Vol] 1.87 10*3/uL Normal 1.00-4.00 [facility] Comment on above: Order Comment: Speci men Type: BLOOD SPECIMENOrdering Facility: [facility] Address: [address] [place] [address] Performed By: #### 5 7021-8 ####SCIENTOLOGY LABORATORYCLIA [id number] [place] [address] [place] Lymphocytes/100 WBC (Bld) 34.4 % Normal [facility] Comment on above: Order Comment: Speci men Type: BLOOD SPECIMENOrdering Facility: [facility] Address: [address] [place] [address] Performed By: #### 5 7021-8 ####SCIENTOLOGY LABORATORYCLIA [id number] [place] [id number] [place] MCH (RBC) [Entitic mass] 24.5 pg Low 26.0-34.0 [facility] Comment on above: Order Comment: Speci men Type: BLOOD SPECIMENOrdering Facility: [facility] Address: [address] [place] [address] Performed By: #### 5 7021-8 ####SCIENTOLOGY LABORATORYCLIA [id number] [place] [address] [place] MCHC (RBC) [Mass/Vol] 31.0 g/dL Normal 30.5-36.[address] [facility] Comment on above: Order Comment: Speci men Type: BLOOD SPECIMENOrdering Facility: [facility] Address: [address] [place] [address] Performed By: #### 5 7021-8 ####SCIENTOLOGY LABORATORYCLIA [id number] [place] [address] [place] MCV (RBC) [Entitic vol] 79.0 fL Low 80.0-100.0 L [facility] Comment on above: Order Comment: Speci men Type: BLOOD SPECIMENOrdering Facility: [facility] Address: [address] [place] [address] Performed By: #### 5 7021-8 ####SCIENTOLOGY LABORATORYCLIA [id number] [address] [place] [address] [place] Monocytes (Bld) [#/Vol] 0.25 10*3/uL Normal <0.87 [facility] Comment on above: Order Comment: Speci men Type: BLOOD SPECIMENOrdering Facility: [facility] Address: [address] [place] [address] Performed By: #### 5 7021-8 ####SCIENTOLOGY LABORATORYCLIA [id number] [address] [place] [address] [place] Monocytes/100 WBC (Bld) 4.6 % Normal [facility] Comment on above: Order Comment: Speci men Type: BLOOD SPECIMENOrdering Facility: [facility] Address: [address] [place] [address] Performed By: #### 5 7021-8 ####SCIENTOLOGY LABORATORYCLIA [id number] [place] [address] [place] Neutrophils (Bld) [#/Vol] 3.23 10*3/uL Normal 1.45-7.50 [facility] Comment on above: Order Comment: Speci men Type: BLOOD SPECIMENOrdering Facility: [facility] Address: [address] [place] [address] Performed By: #### 5 7021-8 ####SCIENTOLOGY LABORATORYCLIA [id number] [place] [address] [place] Neutrophils/100 WBC (Bld) 59.4 % Normal [facility] Comment on above: Order Comment: Speci men Type: BLOOD SPECIMENOrdering Facility: [facility] Address: [address] [place] [address] Performed By: #### 5 7021-8 ####SCIENTOLOGY LABORATORYCLIA [id number] [address] [place] [address] [place] Nucleated RBC (Bld) [#/Vol] 10*3/uL Normal <0.01 [facility] Comment on above: Order Comment: Speci men Type: BLOOD SPECIMENOrdering Facility: [facility] Address: [address] [place] [address] Performed By: #### 5 7021-8 ####SCIENTOLOGY LABORATORYCLIA [id number] [place] [id number] [place] Nucleated RBC/100 WBC (Bld) [Ratio] 0.0 /100 WBC Normal [facility] Comment on above: Order Comment: Speci men Type: BLOOD SPECIMENOrdering Facility: [facility] Address: [address] [place] [address] Performed By: #### 5 7021-8 ####SCIENTOLOGY LABORATORYCLIA [id number] [place] [address] [place] Platelet mean volume (Bld) [Entitic vol] 9.4 fL Normal 9.0-12.7 [facility] Comment on above: Order Comment: Speci men Type: BLOOD SPECIMENOrdering Facility: [facility] Address: [address] [place] [address] Performed By: #### 5 7021-8 ####SCIENTOLOGY LABORATORYCLIA [id number] [place] [address] [place] Platelets (Bld) [#/Vol] 486 10*3/uL High 150-400 [facility] Comment on above: Order Comment: Speci men Type: BLOOD SPECIMENOrdering Facility: [facility] Address: [address] [place] [address] Performed By: #### 5 7021-8 ####SCIENTOLOGY LABORATORYCLIA [id number] [place] [id number] [place] RBC (Bld) [#/Vol] 4.77 10*6/uL Normal 3.90-5.20 [facility] Comment on above: Order Comment: Speci men Type: BLOOD SPECIMENOrdering Facility: [facility] Address: [address] [place] [address] Performed By: #### 5 7021-8 ####SCIENTOLOGY LABORATORYCLIA [id number] [place] [address] [place] WBC (Bld) [#/Vol] 5.43 10*3/uL Normal 3.70-11.00 [facility] Comment on above: Order Comment: Speci men Type: BLOOD SPECIMENOrdering Facility: [facility] Address: [address] [place] [address] Performed By: #### 5 7021-8 ####SCIENTOLOGY LABORATORYCLIA [id number] [address] [place] [address] [place] [address] ABD/PEL W IVCONon [...] Tissues: No significant finding. Lower thorax: Unremarkable. Bag Hanger (topogram) images: Unremarkable. IMPRESSION: No acute intra-abdominal or pelvic process identified. Rn Charge: ANTONIO Transcribe Date/Time: Jun 22 2023 8:25P Dictated by : CHAD SCHILLING MD This examination was interpreted and the report reviewed and electronically signed by: CHAD SCHILLING MD on Jun 22 2023 8:29PM EST [id number] Normal [facility] Comprehensive metabolic 2000 panelon 06-22-2023 Albumin [Mass/Vol] 4.8 g/dL Normal 3.9-4.9 [facility] Comment on above: Order Comment: Speci men Type: BLOOD SPECIMENOrdering Facility: [facility] Address: [address] [place] [address] Performed By: #### 2 4323-8, 3040-3, ####SCIENTOLOGY LABORATORYCLIA [id number] [address] [place], [place] [address] [place] ALP [Catalytic activity/Vol] 108 U/L Normal 34-123 [facility] Comment on above: Order Comment: Speci men Type: BLOOD SPECIMENOrdering Facility: [facility] Address: [address] [place] [address] Performed By: #### 2 4323-8, 3040-3, ####SCIENTOLOGY LABORATORYCLIA [id number] [address] [place], [place] [address] [place] ALT [Catalytic activity/Vol] 63 U/L High 7-38 [facility] Comment on above: Order Comment: Speci men Type: BLOOD SPECIMENOrdering Facility: [facility] Address: [address] [place] [address] Performed By: #### 2 4323-8, 0-3, ####SCIENTOLOGY LABORATORYCLIA [id number] [place] [id number] [place] Anion gap [Moles/Vol] 13 mmol/L Normal 9-[address] [facility] Comment on above: Order Comment: Speci men Type: BLOOD SPECIMENOrdering Facility: [facility] Address: [address] [place] [address] Performed By: #### 2 4323-8, 3040-3, ####SCIENTOLOGY LABORATORYCLIA [id number] [address] [place], [place] [address] [place] AST [Catalytic activity/Vol] 109 U/L High 13-35 [facility] Comment on above: Order Comment: Speci men Type: BLOOD SPECIMENOrdering Facility: [facility] Address: [address] [place] [address] Performed By: #### 2 4323-8, 3039-3, ####SCIENTOLOGY LABORATORYCLIA [id number] [place] [address] [place] Bilirubin [Mass/Vol] 0.4 mg/dL Normal 0.2-1.3 [facility] Comment on above: Order Comment: Speci men Type: BLOOD SPECIMENOrdering Facility: [facility] Address: [address] [place] [address] Performed By: #### 2 4323-8, 3039-3, ####SCIENTOLOGY LABORATORYCLIA [id number] [place] [address] [place] Calcium [Mass/Vol] 9.6 mg/dL Normal 8.5-10.2 [facility] Comment on above: Order Comment: Speci men Type: BLOOD SPECIMENOrdering Facility: [facility] Address: [address] [place] [address] Performed By: #### 2 4323-8, 3, ####SCIENTOLOGY LABORATORYCLIA [id number] [place] [id number] [place] Chloride [Moles/Vol] 102 mmol/L Normal 97-105 [facility] Comment on above: Order Comment: Speci men Type: BLOOD SPECIMENOrdering Facility: [facility] Address: [address] [place] [address] Performed By: #### 2 4323-8, 3039-3, ####SCIENTOLOGY LABORATORYCLIA [id number] [place] [id number] [place] CO2 [Moles/Vol] 23 mmol/L Normal 22-30 [facility] Comment on above: Order Comment: Speci men Type: BLOOD SPECIMENOrdering Facility: [facility] Address: [address] [place] [address] Performed By: #### 2 4323-8, 3039-3, ####SCIENTOLOGY LABORATORYCLIA [id number] [place] [address] [place] Creatinine [Mass/Vol] 0.64 mg/dL Normal 0.58-0.[address] [facility] Comment on above: Order Comment: Roselyn conway Type: BLOOD SPECIMENOrdering Facility: [facility] Address: [address] [place] [address] Performed By: #### 2 4323-8, 3040-3, ####SCIENTOLOGY LABORATORYCLIA [id number] [place] [id number] [place] Creatinine and Glomerular filtration rate.predicted panel (S/P/Bld) 118 mL/min/1.73m??? Normal >=60 [facility] Comment on above: Order Comment: Roselyn conway Type: BLOOD SPECIMENOrdering Facility: [facility] Address: [address] [place] [address] Result Comment: Shelley mated Glomerular Filtration Rate [...] GFR. Performed By: #### 2 4323-8, 0-3, ####SCIENTOLOGY LABORATORYCLIA [id number] [place] [id number] [place] Glucose [Mass/Vol] 102 mg/dL High 74-99 [facility] Comment on above: Order Comment: Roselyn conway Type: BLOOD SPECIMENOrdering Facility: [facility] Address: [address] [place] [address] Result Comment: The [place] [employer] (ADA) provides guidance for cutoff [...] Standards of Medical Care in Diabetes 2016, [place] [employer]. Diabetes Care. 2016.39(Suppl 1). Performed By: #### 2 4323-8, 0-3, ####SCIENTOLOGY LABORATORYCLIA [id number] [place] [id number] [place] Potassium [Moles/Vol] 3.8 mmol/L Normal 3.7-5.[address] [facility] Comment on above: Order Comment: Speci men Type: BLOOD SPECIMENOrdering Facility: [facility] Address: [place] [address] Performed By: #### 2 4323-8, 3, ####SCIENTOLOGY LABORATORYCLIA [id number] [place] [id number] [place] Protein [Mass/Vol] 8.2 g/dL High 6.3-8.0 [facility] Comment on above: Order Comment: Speci men Type: BLOOD SPECIMENOrdering Facility: [facility] Address: [address] [place] [address] Performed By: #### 2 4323-8, 3, ####SCIENTOLOGY LABORATORYCLIA [id number] [place] [id number] [place] Sodium [Moles/Vol] 138 mmol/L Normal 136-144 [facility] Comment on above: Order Comment: Speci men Type: BLOOD SPECIMENOrdering Facility: [facility] Address: [address] [place] [address] Performed By: #### 2 4323-8, 3, ####SCIENTOLOGY LABORATORYCLIA [id number] [place] [id number] [place] Urea nitrogen [Mass/Vol] 8 mg/dL Normal 7-21 [facility] Comment on above: Order Comment: Speci men Type: BLOOD SPECIMENOrdering Facility: [facility] Address: [address] [place] [address] Performed By: #### 2 4323-8, 3040-3, 02548-7 ####SCIENTOLOGY LABORATORYIA [id number] [place] [id number] [place] ECG COMPLETEon 06-22-2023 ECG COMPLETE Ventricular Rate : 1 05 BPM Atrial Rate : 103 BPM P-R Interval : 152 ms QRS Duration : 77 ms Q-T Interval : 324 ms QTC Calculation(Bazett) : 429 ms Calculated P [place] : 42 degrees Calculated R [place] : 56 degrees Calculated T [place] : 49 degrees Sinus tachycardia Low voltage, precordial leads Anteroseptal infarct, old Abnormal ECG no stemi 1814 Confirmed by MD SEN BRENT ([id number]), assistant film editor STEPHENIE ERIC ([id number]) on 06/23/2023 12:09:36 PM NAME : ANTONIA NOYOLA PID : [id number] : 1985 Gender : Female Race : ORD : [id number] Procedure Date : Jun 22 2023 18:10:13 Edit Date : Jun 23 2023 12:09:40 Diagnosis: Sinus tachycardia Low voltage, precordial leads Anteroseptal infarct, old Abnormal ECG no stemi 1814 Confirmed by MD SEN BRENT ([id number]), assistant film editor STEPHENIE ERIC ([id number]) on 06/23/2023 12:09:36 PM Test Reason : Tachycardia Location : 502 : [facility] ED Overread By : MD SEN BRENT Edited By : STEPHENIE ERIC Referred By : , Acquired by : DAVID [facility] ED NOTEon 06-22-2023 ED NOTE HNO ID: [id number] Author: DENNIS CAMARGO RN Service: ? Author Type: Registered Nurse Type: ED Notes Filed: 06/22/2023 21:56 Note Text: Assumed care of pt at this time and received report from previous RN. [facility] ED NOTE HNO ID: [id number] Author: MATILDE DAVIS RN Service: Nursing Author Type: Registered Nurse Type: ED Notes Filed: 06/22/2023 17:38 Note Text: Pt presents with LLQ pain that radiates to back that began this morning but worsened one hour prior to arrival. Denies urinary complaints. [facility] ED PROV NOTEon 06-22-2023 ED PROV NOTE HNO ID: [id number] Author: EVGENY SEN MD Service: Emergency Medicine [...] with some relief. History provided by: Patient hospice home care coordinator used: No PAST MEDICAL HISTORY Diagnosis Date [...] Hyperlipidemia Father Heart Father bypass surgery, stents, [place] Social History Tobacco Use Smoking status: Never [...] Value Ref Range (more content not included)... [facility] ED Triage Noteon 06-22-2023 ED Triage Note HNO ID: [id number] Author: TABBY LUCIANO PA-C Service: ? Author Type: Physician Asset Protection Representative Type: ED Triage Notes Filed: 06/22/2023 17:43 [...] the treating team. SIGNATURE: Tabby Luciano PA-C [facility] HCG Preg Ur Qlon 06-22-2023 HCG ( test) Ql (U) Negative Normal Negative [facility] Comment on above: Order Comment: Speci men Type: URINE SPECIMENOrdering Facility: [facility] Address: [address] [place] [address] Result Comment: This test is intended to aid in the early detection of . Very dilute urine samples, as indicated by a low specific gravity, may not contain clearance representative levels of hCG. This test detects [...] for . Performed By: #### 2 106-3 ####SCIENTOLOGY LABORATORYCLIA [id number] [place] [id number] [place] Lipase SerPl-cCncon 06-22-19 24 Lipase [Catalytic activity/Vol] 34 U/L Normal 16-61 [facility] Comment on above: Order Comment: Speci men Type: BLOOD SPECIMENOrdering Facility: [facility] Address: [address] [place] [address] Performed By: #### 2 4323-8, 3040-3, 84076-3 ####SCIENTOLOGY [facility]PITALIA [id number] [place] [id number] [place] Magnesium SerPl-mCncon 06-22 Magnesium [Mass/Vol] 2.2 mg/dL Normal 1.7-2.3 [facility] Comment on above: Order Comment: Speci men Type: BLOOD SPECIMENOrdering Facility: [facility] Address: [address] [place] [address] Performed By: #### 2 4323-8, 3040-3, 94266-0 ####SCIENTOLOGY [facility] HOSPITALIA [id number] [place] [id number] [place] US DOPPLER COMPLETEon [...] and stored in a permanent archive. MQ: [facility]_2021 COMPARISON: None RESULT: Uterus: -Size: 8.1 [...] Normal sonographic appearance of the female pelvis. Rn Charge: [facility] Transcribe Date/Time: Jun 22 2023 7:44P Dictated by : Vasu BURNS MD This examination was interpreted and the report reviewed and electronically signed by: Vasu BURNS MD on Jun 22 2023 7:48PM EST [id number] [facility] FEMALE PELVIS TRANSABD LT Don 06-22-2023 FEMALE PELVIS TRANSABD LTD * * *Final Report* * * DATE OF EXAM: Jun 22 2023 6:54PM [facility] 1059 - FEMALE PELVIS TRANSABD LTD [...] and stored in a permanent archive. MQ: [facility]_2021 COMPARISON: None RESULT: Uterus: -Size: 8.1 [...] Normal sonographic appearance of the female pelvis. Rn Charge: ANTONIO Transcribe Date/Time: Jun 22 2023 7:44P Dictated by : Vasu BURNS MD This examination was interpreted and the report reviewed and electronically signed by: Vasu BURNS MD on Jun 22 2023 7:48PM EST [id number] [facility] FEMALE PELVIS TRANSVAGon 06-22-2023 FEMALE PELVIS TRANSVAG [...] and stored in a permanent archive. MQ: [facility]_2021 COMPARISON: None RESULT: Uterus: -Size: 8.1 [...] Normal sonographic appearance of the female pelvis. Rn Charge: [facility] Transcribe Date/Time: Jun 22 2023 7:44P Dictated by : Vasu BURNS MD This examination was interpreted and the report reviewed and electronically signed by: Vasu BURNS MD on Jun 22 2023 7:48PM EST [id number] Normal [facility] Urinalysis complete panel (U )on 06-22-2023 Bacteria LM.HPF (Urine sed) [#/Area] Few Abnormal None Seen [facility] Comment on above: Order Comment: Speci men Type: URINE SPECIMENOrdering Facility: [facility] Address: [address] [place] [address] Performed By: #### 2 4356-8 ####SCIENTOLOGY LABORATORYCLIA [id number] [address] [place] [address] [place] Bilirubin Ql (U) Negative Normal Negative [facility] Comment on above: Order Comment: Speci men Type: URINE SPECIMENOrdering Facility: [facility] Address: [address] [place] [address] Performed By: #### 2 4356-8 ####SCIENTOLOGY LABORATORYCLIA [id number] [address] [place] Clarity (Unsp spec) Clear Normal Clear [facility] Comment on above: Order Comment: Speci men Type: URINE SPECIMENOrdering Facility: [facility] Address: [address] [place] [address] Performed By: #### 2 4356-8 ####SCIENTOLOGY LABORATORYCLIA [id number] [address] [place] Color (U) Yellow Normal Yellow [facility] Comment on above: Order Comment: Speci men Type: URINE SPECIMENOrdering Facility: [facility] Address: [address] [place] [address] Performed By: #### 2 4356-8 ####SCIENTOLOGY LABORATORYCLIA [id number] [address] Epithelial cells LM.HPF (Urine sed) [#/Area] Few Normal [facility] Comment on above: Order Comment: Speci men Type: URINE SPECIMENOrdering Facility: [facility] Address: [address] [place], [place] [address] Performed By: #### 2 4356-8 ####SCIENTOLOGY LABORATORYCLIA [id number] [address] [place] [address] Glucose Test strip (U) [Mass/Vol] Negative Normal Negative [facility] Comment on above: Order Comment: Speci men Type: URINE SPECIMENOrdering Facility: [facility] Address: [address] [place] [address] Performed By: #### 2 4356-8 ####SCIENTOLOGY LABORATORYCLIA [id number] [address] [place] [address] [place] Hemoglobin Ql (U) Negative Normal Negative [facility] Comment on above: Order Comment: Speci men Type: URINE SPECIMENOrdering Facility: [facility] Address: [address] [place] [address] Performed By: #### 2 4356-8 ####SCIENTOLOGY LABORATORYCLIA [id number] [address] [place] [address] [place] Ketones Ql (U) Trace Abnormal Negative [facility] Comment on above: Order Comment: Speci men Type: URINE SPECIMENOrdering Facility: [facility] Address: [address] [place] [address] Performed By: #### 2 4356-8 ####SCIENTOLOGY LABORATORYCLIA [id number] [address] [place] [address] Leukocyte esterase Test strip Ql (U) Negative Normal Negative [facility] Comment on above: Order Comment: Speci men Type: URINE SPECIMENOrdering Facility: [facility] Address: [address] [place] [address] Performed By: #### 2 4356-8 ####SCIENTOLOGY LABORATORYCLIA [id number] [address] [place] [address] [place] Nitrite Ql (U) Negative Normal Negative [facility] Comment on above: Order Comment: Speci men Type: URINE SPECIMENOrdering Facility: [facility] Address: [address] [place] [address] Performed By: #### 2 4356-8 ####SCIENTOLOGY LABORATORYCLIA [id number] [address] [place] [address] [place] pH (U) 6.5 [pH] Normal 5.0-8.0 [facility] Comment on above: Order Comment: Speci men Type: URINE SPECIMENOrdering Facility: [facility] Address: [address] [place] [address] Performed By: #### 2 4356-8 ####SCIENTOLOGY LABORATORYCLIA [id number] [place] [id number] [place] Protein (U) [Mass/Vol] Negative Normal Negative [facility] Comment on above: Order Comment: Speci men Type: URINE SPECIMENOrdering Facility: [facility] Address: [address] [place] [address] Performed By: #### 2 4356-8 ####SCIENTOLOGY LABORATORYCLIA [id number] [place] [address] [place] RBC LM.HPF (Urine sed) [#/Area] 0-3 /HPF Normal 0-3 /HPF [facility] Comment on above: Order Comment: Speci men Type: URINE SPECIMENOrdering Facility: [facility] Address: [address] [place] [address] Performed By: #### 2 4356-8 ####SCIENTOLOGY LABORATORYIA [id number] [place] [address] [place] Specific gravity (U) [Rel density] 1.020 Normal 1.005-1.030 [facility] Comment on above: Order Comment: Speci men Type: URINE SPECIMENOrdering Facility: [facility] Address: [address] [place] [address] Performed By: #### 2 4356-8 ####SCIENTOLOGY LABORATORYCLIA [id number] [place] [address] [place] Urobilinogen Ql (U) 1.0 EU/dL Normal 0.2-1.0 EU/dL [facility] Comment on above: Order Comment: Speci men Type: URINE SPECIMENOrdering Facility: [facility] Address: [address] [place] [address] Performed By: #### 2 4356-8 ####SCIENTOLOGY LABORATORYCLIA [id number] [place] [address] [place] WBC LM.HPF (Urine sed) [#/Area] 0-5 /HPF Normal 0-5 /HPF [facility] Comment on above: Order Comment: Speci men Type: URINE SPECIMENOrdering Facility: [facility] Address: [address] [place], [place] [address] [address] Performed By: #### 2 4356-8 ####SCIENTOLOGY LABORATORYCLIA [id number] [place] [address] [place] Alanine aminotransferase [En zymatic activity/volume] in Serum or PlasmaOrdered By: Elier Jackson on 04-30-2023 ALT [Catalytic activity/Vol] 15 U/L Normal 7-52 [facility] Comment on above: Performed By: #### H CGQNT #### [facility] [address] [place] [address] [place] Albumin [Mass/volume] in Ser um or Plasma by Bromocresol green (BCG) dye binding methoOrdered By: Elier Jackson on 04-30-2023 Albumin BCG dye [Mass/Vol] 4.3 g/dL 3.5-5.7 [facility] Alkaline phosphatase [Enzyma tic activity/volume] in Serum or PlasmaOrdered By: Elier Jackson on 04-30-2023 ALP [Catalytic activity/Vol] 68 U/L Normal 34-104 [facility] Comment on above: Performed By: #### H CGQNT #### [facility] [address] [place] [id number] [place] Aspartate aminotransferase [ Enzymatic activity/volume] in Serum or PlasmaOrdered By: Elier Jackson on 04-30-2023 AST [Catalytic activity/Vol] 17 U/L Normal 13-39 [facility] Comment on above: Performed By: #### H CGQNT #### [facility] [address] [place] [id number] [place] Automated basophil %Ordered By: Elier Jackson on 04-30-2023 Basophils/100 WBC (Bld) 1.3 % Normal . [facility] Comment on above: Performed By: #### H CGQNT #### [address] Automated basophil countOrde red By: Elier Manuel on 04-30-2023 Basophils (Bld) [#/Vol] 0.0 10*3/uL Normal 0.0-0.2 [facility] Comment on above: Result Comment: PERF ORMED BY: [place] [address] PATHOLOGIST DIRECTOR OF CUSTOMER ACQUISITION FARNAZ ZULETA M.D. Performed By: #### H CGQNT #### [address] Automated blood monocyte cou ntOrdered By: Elier Jackson on 04-30-2023 Monocytes (Bld) [#/Vol] 0.3 10*3/uL Normal 0.0-0.8 [facility] Comment on above: Performed By: #### H CGQNT #### [address] Automated eosinophil %Ordere d By: Elier Jackson on 04-30-2023 Eosinophils/100 WBC (Bld) 0.6 % Normal . [facility] Comment on above: Performed By: #### H CGQNT #### [address] Automated eosinophil countOr dered By: Elier Jackson on 04-30-2023 Eosinophils (Bld) [#/Vol] 0.0 10*3/uL Normal 0.0-0.45 [facility] Comment on above: Performed By: #### H CGQNT #### [address] Automated erythrocytes count in urine sediment (number/area)Ordered By: Elier Jackson on 04-30-2023 RBC Auto (Urine sed) [#/Area] 5-9 [HPF] 0-4 [facility] Automated leukocytes count i n urine sediment (number/area)Ordered By: Elier Jackson on 04-30-2023 WBC Auto (Urine sed) [#/Area] 0-1 [HPF] 0-4 [facility] Automated monocyte %Ordered By: Elier Jackson on 04-30-2023 Monocytes/100 WBC (Bld) 7.0 % Normal . [facility] Comment on above: Performed By: #### H CGQNT #### [address] Automated neutrophil %Ordere d By: Elier Jackson on 04-30-2023 Neutrophils/100 WBC (Bld) 46.9 % Normal . [facility] Comment on above: Performed By: #### H CGQNT #### [address] Automated urine color determ inationOrdered By: Elier Jackson on 04-30-2023 Color (U) Yellow Normal Yellow [facility] Comment on above: Order Comment: Name Collection Type:: Clean-Voided Midstream Performed By: #### U HCG, ADDONUAPLUS #### [address] Basic Metabolic Panelon 04-13 Creatinine Clr Calc Pharmacy 107.67 Normal [facility] Comment on above: Performed By: #### H CGQNT #### [address] GFR/1.73 sq M.predicted MDRD (S/P/Bld) [Vol rate/Area] mL/min/{1.73_m2} Normal [facility] Comment on above: Performed By: #### H CGQNT #### [address] Bilirubin Test strip Ql (U)O rdered By: Elier Jackson on 04-30-2023 Bilirubin Ql (U) Negative Negative [facility] Bilirubin.direct [Mass/volum e] in Serum or PlasmaOrdered By: Elier Jackson on 04-30-2023 Bilirubin.direct [Mass/Vol] 0.10 mg/dL 0.03-0.18 [facility] Bilirubin.total [Mass/volume ] in Serum or PlasmaOrdered By: Elier Jackson on 04-30-2023 Bilirubin [Mass/Vol] 0.4 mg/dL Normal 0.3-1.0 [facility] Comment on above: Performed By: #### H CGQNT #### [address] Calcium [Mass/volume] in Ser um or PlasmaOrdered By: Elier Velásquezarleen on 04-30-2023 Calcium [Mass/Vol] 9.2 mg/dL Normal 8.6-10.3 [facility] Comment on above: Performed By: #### H CGQNT #### [address] Carbon dioxide, total [Moles /volume] in Serum or PlasmaOrdered By: Elier Velásquezarleen on 04-30-2023 CO2 [Moles/Vol] 20.1 mmol/L Low 21.0-31.0 [facility] Comment on above: Performed By: #### H CGQNT #### [address] Chloride [Moles/volume] in S binu or PlasmaOrdered By: Elier Velásquezarleen on 04-30-2023 Chloride [Moles/Vol] 109 mmol/L High 98-107 [facility] Comment on above: Performed By: #### H CGQNT #### [address] Complete Blood Count Auto Di ffon 04-30-2023 Mean Corpuscular HGB Conc 34.7 g/dL Normal 32.0-35.0 [facility] Comment on above: Performed By: #### H CGQNT #### [address] Monocytes/100 WBC (Bld) 16.58 % Normal 0.00-20.00 [facility] Comment on above: Performed By: #### H CGQNT #### [address] NRBC% 0.1 /100{WBC} Normal 0-0.5 [facility] Comment on above: Performed By: #### H CGQNT #### [place] [address] [place] Creatinine [Mass/volume] in Serum or PlasmaOrdered By: Elier Manuel on 04-30-2023 Creatinine [Mass/Vol] 0.65 mg/dL Normal 0.60-1.20 [facility] Comment on above: Performed By: #### H CGQNT #### [facility] [address] [place] [address] [place] Dipstick and Microscopicon 1 06-30-2022 Appearance (U) Clear Normal Clear [facility] Comment on above: Order Comment: Name Collection Type:: Clean-Voided Midstream Performed By: #### U HCG, ADDONUAPLUS #### [place] [address] [place] Bacteria,Urine None Seen Normal None Seen [facility] Comment on above: Order Comment: Name Collection Type:: Clean-Voided Midstream Performed By: #### U HCG, ADDONUAPLUS #### [place] [address] [place] Bilirubin,Urine Negative Normal Negative [facility] Comment on above: Order Comment: Name Collection Type:: Clean-Voided Midstream Performed By: #### U HCG, ADDONUAPLUS #### [address] Glucose Ql (U) Normal Normal Normal [facility] Comment on above: Order Comment: Name Collection Type:: Clean-Voided Midstream Performed By: #### U HCG, ADDONUAPLUS #### [place] [address] [place] Hyaline Casts,Urine 0-8 Normal 0-8 [facility] Comment on above: Order Comment: Name Collection Type:: Clean-Voided Midstream Performed By: #### U HCG, ADDONUAPLUS #### [place] [address] [place] Ketones Ql (U) Negative Normal Negative [facility] Comment on above: Order Comment: Name Collection Type:: Clean-Voided Midstream Performed By: #### U HCG, ADDONUAPLUS #### [address] Leukocyte esterase Test strip Ql (U) Negative Normal Negative [facility] Comment on above: Order Comment: Name Collection Type:: Clean-Voided Midstream Performed By: #### U HCG, ADDONUAPLUS #### [address] Nitrite,Urine Negative Normal Negative [facility] Comment on above: Order Comment: Name Collection Type:: Clean-Voided Midstream Performed By: #### U HCG, ADDONUAPLUS #### [address] Occult Blood,Urine 2+ High Negative [facility] Comment on above: Order Comment: Name Collection Type:: Clean-Voided Midstream Performed By: #### U HCG, ADDONUAPLUS #### [address] Protein,Urine Negative Normal Negative [facility] Comment on above: Order Comment: Name Collection Type:: Clean-Voided Midstream Performed By: #### U HCG, ADDONUAPLUS #### [address] RBC,Urine 5-9 High 0-4 [facility] Comment on above: Order Comment: Name Collection Type:: Clean-Voided Midstream Performed By: #### U HCG, ADDONUAPLUS #### [address] Specificy [place],Urine 1.018 Normal 1.001-1.030 [facility] Comment on above: Order Comment: Name Collection Type:: Clean-Voided Midstream Performed By: #### U HCG, ADDONUAPLUS #### [address] Squamous Epithelial Cell,Urine 0-1 Normal 0-2 [facility] Comment on above: Order Comment: Name Collection Type:: Clean-Voided Midstream Performed By: #### U HCG, ADDONUAPLUS #### [address] Urobilinogen,Urine Normal Normal Normal [facility] Comment on above: Order Comment: Name Collection Type:: Clean-Voided Midstream Performed By: #### U HCG, ADDONUAPLUS #### [address] WBC LM.HPF (Urine sed) [#/Area] 0 /[HPF] Normal 0-4 [facility] Comment on above: Order Comment: Name Collection Type:: Clean-Voided Midstream Performed By: #### U HCG, ADDONUAPLUS #### [address] Erythrocyte distribution wid th [Ratio] by Automated countOrdered By: Elier Jackson on 04-30-2023 Erythrocyte distribution width (RBC) [Ratio] 16.8 % High 11.9-15.3 [facility] Comment on above: Performed By: #### H CGQNT #### [address] Erythrocytes [#/volume] in B lood by Automated countOrdered By: Elier Jackson on 04-30-2023 RBC (Bld) [#/Vol] 3.68 10*6/uL Normal 3.60-5.00 [facility] Comment on above: Performed By: #### H CGQNT #### [address] Glucose [Mass/volume] in Ser um or PlasmaOrdered By: Elier Jackson on 04-30-2023 Glucose [Mass/Vol] 100 mg/dL Normal 70-100 [facility] Comment on above: ADA recommended refe rence rangeRandom Glucose Reference Range is dependent on time and content of last meal. Glucose of more than 200 mg/dL in a nonstressed, ambulatory subject supports the diagnosis of Diabetes Mellitus. Result Comment: Darragh om Glucose Reference Range is dependent on time and content of last meal. Glucose of more than 200 mg/dL in a nonstressed, ambulatory subject supports the diagnosis of Diabetes Mellitus. ADA recommended reference range Performed By: #### H CGQNT #### [address] HCG ( test) [place].rapi d Ql (U)Ordered By: Elier Jackson on 04-30-2023 HCG ( test) Ql (U) Negative [facility] HCG,Urineon 04-30-2023 Beta HCG ( test) Ql (U) Negative Normal [facility] Comment on above: Order Comment: Name Collection Type:: Clean-Voided Midstream Result Comment: PERF ORMED BY: [place] [address] PATHOLOGIST DIRECTOR OF CUSTOMER ACQUISITION FARNAZ ZULETA M.D. Performed By: #### U HCG, ADDONUAPLUS #### [address] Hematocrit [Volume Fraction] of Blood by Automated countOrdered By: Elier Jackson on 04-30-2023 Hematocrit (Bld) [Volume fraction] 32.3 % Low 34.0-46.4 [facility] Comment on above: Performed By: #### H CGQNT #### [address] Hemoglobin [Mass/volume] in BloodOrdered By: Elier Jackson on 04-30-2023 Hemoglobin (Bld) [Mass/Vol] 11.2 g/dL Low 11.8-15.4 [facility] Comment on above: Performed By: #### H CGQNT #### [address] Hepatic Panelon 04-30-2023 Albumin [Mass/Vol] 4.3 g/dL Normal 3.5-5.7 [facility] Comment on above: Performed By: #### H CGQNT #### [address] Bilirubin,Indirect 0.3 mg/dL Normal [facility] Comment on above: Performed By: #### H CGQNT #### [address] Bilirubin.indirect [Mass/Vol] 0.10 mg/dL Normal 0.03-0.18 [facility] Comment on above: Performed By: #### H CGQNT #### [address] Ketones Auto test strip (U) [Mass/Vol]Ordered By: Elier Jackson on 04-30-2023 Ketones (U) [Mass/Vol] Negative Negative [facility] - UrinalysisOrder ed By: Elier Jackson on 04-30-2023 Hyaline casts LM Ql (Urine sed) 0-8 [LPF] 0-8 [facility] Leukocytes [#/volume] correc flo for nucleated erythrocytes in Blood by Automated counOrdered By: Elier Jackson on 04-30-2023 WBC corrected for nucl RBC Auto (Bld) [#/Vol] 3.6 10*3/uL 3.8-11.6 [facility] Leukocytes [#/volume] in Blo od by Automated countOrdered By: Elier Jackson on 04-30-2023 WBC (Bld) [#/Vol] 3.6 10*3/uL Low 3.8-11.6 [facility] Comment on above: Performed By: #### H CGQNT #### [address] Lipase [Enzymatic activity/v olume] in Serum or PlasmaOrdered By: Elier Jackson on 04-30-2023 Lipase [Catalytic activity/Vol] 31.0 U/L Normal 11.0-82.0 [facility] Comment on above: Result Comment: PERF ORMED BY: [address] [place] [address] PATHOLOGIST DIRECTOR OF CUSTOMER ACQUISITION FARNAZ ZULETA M.D. Performed By: #### H CGQNT #### [address] Lymphocytes [#/volume] in Bl ood by Automated countOrdered By: Elier Jackson on 04-30-2023 Lymphocytes (Bld) [#/Vol] 1.6 10*3/uL Normal 1.00-4.8 [facility] Comment on above: Performed By: #### H CGQNT #### [address] Lymphocytes/100 leukocytes i n Blood by Automated countOrdered By: Elierjaqui Jackson on 04-30-2023 Lymphocytes/100 WBC (Bld) 44.2 % Normal . [facility] Comment on above: Performed By: #### H CGQNT #### [address] MCH [Entitic mass] by Automa flo countOrdered By: Elier Jackson on 04-30-2023 MCH (RBC) [Entitic mass] 30.4 pg Normal 24.7-34.3 [facility] Comment on above: Performed By: #### H CGQNT #### [address] MCHC Auto (RBC) [Mass/Vol]Or dered By: Elier Jackson on 04-30-2023 MCHC (RBC) [Mass/Vol] 34.7 g/dL 32.0-35.0 [facility] MCV [Entitic volume] by Auto mated countOrdered By: Elier Jackson on 04-30-2023 MCV (RBC) [Entitic vol] 87.6 fL Normal 80-100 [facility] Comment on above: Performed By: #### H CGQNT #### [address] Monocyte distribution width [Entitic volume] in Blood by AutomatedOrdered By: Elier Jackson on 04-30-2023 Monocyte distribution width Auto (Bld) [Entitic vol] 16.58 % 0.00-20.00 [facility] Neutrophils [#/volume] in Bl ood by Automated countOrdered By: Elier Jackson on 04-30-2023 Neutrophils (Bld) [#/Vol] 1.7 10*3/uL Low 1.8-7.7 [facility] Comment on above: Performed By: #### H CGQNT #### [address] Nitrite Test strip Ql (U)Ord ered By: Elier Jackson on 11-18-2023 Nitrite Ql (U) Negative Negative [facility] No Panel InformationOrdered By: Elier Jackson on 04-30-2023 Estimated GFR (CKD-EPI) > 60.0 mL/Min [facility] Creatinine Clearance (Chem 107.67 [facility] Nucleated erythrocytes [Pres ence] in Blood by Automated countOrdered By: Elier Jackson on 04-30-2023 Nucleated RBC Auto Ql (Bld) 0.1 /100{WBC} 0-0.5 [facility] Platelet mean volume [Entiti c volume] in Blood by Automated countOrdered By: Elier Jackson on 04-30-2023 Platelet mean volume (Bld) [Entitic vol] 8.0 fL Normal 6.3-10.7 [facility] Comment on above: Performed By: #### H CGQNT #### [facility] [address] Platelets [#/volume] in Bloo d by Automated countOrdered By: Elier Jackson on 04-30-2023 Platelets (Bld) [#/Vol] 415 10*3/uL Normal 150-450 [facility] Comment on above: Performed By: #### H CGQNT #### [facility] [address] [place] [address] [place] Potassium [Moles/volume] in Serum or PlasmaOrdered By: Elier Jackson on 04-30-2023 Potassium [Moles/Vol] 3.8 mmol/L Normal 3.5-5.1 [facility] Comment on above: Performed By: #### H CGQNT #### [facility] [address] Protein Auto test strip (U) [Mass/Vol]Ordered By: Elier Jackson on 04-30-2023 Protein (U) [Mass/Vol] Negative Negative [facility] Protein [Mass/volume] in Ser um or PlasmaOrdered By: Elier Jackson on 04-30-2023 Protein [Mass/Vol] 7.6 g/dL Normal 6.4-8.9 [facility] Comment on above: Performed By: #### H CGQNT #### [facility] [address] Serum globulin measurement b y calculation (mass/volume)Ordered By: Elier Jackson on 04-30-2023 Globulin (S) [Mass/Vol] 3.3 g/dL Normal [facility] Comment on above: Performed By: #### H CGQNT #### [facility] [address] [place] [address] Serum or plasma albumin/glob ulin mass ratioOrdered By: Elier Jackson on 04-30-2023 Albumin/Globulin [Mass ratio] 1.3 {ratio} Normal [facility] Comment on above: Performed By: #### H CGQNT #### [facility] [address] [place] [address] Serum or plasma anion gap de terminationOrdered By: Elier Jackson on 04-30-2023 Anion gap [Moles/Vol] 14.7 mmol/L Normal 6.0-15.0 [facility] Comment on above: Performed By: #### H CGQNT #### [address] Serum or plasma non-glucuron idated bilirubin measurement (mass/volume)Ordered By: Elier Jackson on 04-30-2023 Bilirubin.indirect [Mass/Vol] 0.3 mg/dL [facility] Sodium [Moles/volume] in Ser um or PlasmaOrdered By: Elier Jackson on 04-30-2023 Sodium [Moles/Vol] 140 mmol/L Normal 136-145 [facility] Comment on above: Performed By: #### H CGQNT #### [address] Specific gravity Auto test s trip (U) [Rel density]Ordered By: Elier Jackson on 04-30-2023 Specific gravity (U) [Rel density] 1.018 1.001-1.030 [facility] Squamous epithelial cells de tection in urine sediment by light microscopyOrdered By: Elier Jackson on 04-30-2023 Epithelial cells.squamous LM Ql (Urine sed) 0-1 [HPF] 0-2 [facility] US pelvic completeon 023 US pelvic complete [facility] [place] [address] [place] [id number] Ultrasound Report Signed Patient: Antonia Noyola MR#: [id number] : 1985 Acct:[id number] Age/Sex: 38 / F ADM Date: 04/30/23 Loc: ER Room: Type: [facility] ER Attending Dr: Ordering Provider: Elier Jackson DO Date of Service: 04/30/23 US/US pelvic complete: L pelvic pain ([id number]) US/US transvaginal: LT PELVIC PAIN Copies to: [...] Betancur Jr., D.OEbenezer04/30/2023 6:24 PM Dictation Location: [place] [address] Tech: Brooke Naveen Transcribed By: AMBER 04/30/231823 Dictated By: Dennis Betancur Jr, DO 04/30/231820 Signed By: 04/30/231823 Normal [facility] Urea nitrogen [Mass/volume] in Serum or PlasmaOrdered By: Elier Jackson on 04-30-2023 Urea nitrogen [Mass/Vol] 6 mg/dL Low 7-25 [facility] Comment on above: Performed By: #### H CGQNT #### [facility] [address] [place], [place] [id number] [facility] Urine bacteria detection by automated methodOrdered By: Elier Jackson on 04-30-2023 Bacteria Auto Ql (U) None seen None Seen [facility] Urine clarity by refractomet ry automatedOrdered By: Elier Jackson on 04-30-2023 Clarity Refractometry automated (U) Clear Clear [facility] Urine glucose measurement by automated test strip (mass/volume)Ordered By: Elier Jackson on 04-30-2023 Glucose Auto test strip (U) [Mass/Vol] Normal mg/dL Normal [facility] Urine hemoglobin detection b y automated test stripOrdered By: Elier Jackson on 04-30-2023 Hemoglobin Auto test strip Ql (U) 2+ Negative [facility] Urine leukocyte esterase det ection by automated test stripOrdered By: Elier Jackson on 04-30-2023 Leukocyte esterase Auto test strip Ql (U) Negative Negative [facility] Urine pH measurement by auto mated test stripOrdered By: Elier Jackson on 04-30-2023 pH (U) 5.5 [pH] Normal 5.0-9.0 [facility] Comment on above: Order Comment: Name Collection Type:: Clean-Voided Midstream Performed By: #### U HCG, ADDONUAPLUS #### [facility] [address] [place] [address] Urobilinogen Auto test strip (U) [Mass/Vol]Ordered By: Elier Jackson on 04-30-2023 Urobilinogen (U) [Mass/Vol] Normal mg/dL Normal [facility] CHEMISTRYOrdered By: SYSTEM SYSTEM on 04-24-2023 Anion gap [Moles/Vol] 14 mmol/L Normal 6 - 16 mEq/L [facility]isol Calcium [Mass/Vol] 9.4 mg/dL Normal 8.9 - 11. 1 mg/dL [facility] Chloride [Moles/Vol] 105 mmol/L Normal 101 - 1 11 mmol/L [facility] CO2 [Moles/Vol] 23 mmol/L Normal 21 - 31 mmol/L [facility] Creatinine [Mass/Vol] 0.7 mg/dL Normal 0.5 - 1.3 mg/dL [facility] GFR/1.73 sq M.predicted among non-blacks MDRD (S/P/Bld) [Vol rate/Area] 115 mL/min/1.73 m2 Normal >=59mL/min/ 1.73 m2 [facility] S Comment on above: Interpretive Data: C hronic kidney disease could be indicated at eGFR's of less than 60 mL/min/1.73m2. Kidney failure is indicated at less than 15 mL/min/1.73m2. Glucose [Mass/Vol] 95 mg/dL Normal 55 - 199 mg/dL [facility] Comment on above: Interpretive Data: I f this glucose result represents a fasting glucose, interpretation should refer to the following reference range: 55-99 mg/dL Potassium [Moles/Vol] 3.8 mmol/L Normal 3.5 - 5.3 mmol/L [facility] Sodium [Moles/Vol] 138 mmol/L Normal 135 - 145 mmol/L [facility] Urea nitrogen [Mass/Vol] 6 mg/dL Normal 5 - 21 mg/dL [facility] Remisol Urea nitrogen/Creatinine [Mass ratio] 9 mg/mg [...] PM) Normal Negative [facility] UA Auto SS [place].plasma/[place]. RBC (Bld) [Mass ratio] 0-3 /HPF Normal [...] [facility] UA Auto SS Urobilinogen Qn (U) [id number] {Ivone'U}/dL Normal 0.0 - 1.0 EU/dL [facility] UA Auto SS WBC Auto Ql (U) Trace *ABN* (04/24/23 2:56 PM) Invalid Interpretation Code Negative [facility] UA Auto SS WBC LM.HPF (Urine sed) [#/Area] 0-5 /HPF Normal 0-5/HPF [facility] UA Auto SS Anisocytosis [Presence] in B lood by Light microscopyOrdered By: Sarah Childress on 04-02-2023 Anisocytosis Ql (Bld) Moderate Normal [facility] Comment on above: Performed By: #### U HCG, ADDONUAPLUS #### [facility] [address] Automated erythrocytes count in urine sediment (number/area)Ordered By: Sarah Childress on 04-02-2023 RBC Auto (Urine sed) [#/Area] 20-49 [HPF] 0-4 [facility] Automated leukocytes count i n urine sediment (number/area)Ordered By: Sarah Childress on 04-02-2023 WBC Auto (Urine sed) [#/Area] 3-4 [HPF] 0-4 [facility] Automated urine color determ inationOrdered By: Sarah Childress on 04-02-2023 Color (U) Yellow Normal Yellow [facility] Comment on above: Order Comment: Name Collection Type:: Clean-Voided Midstream Performed By: #### U HCG, ADDONUAPLUS #### [facility] [address] Basic Metabolic Panelon 03-14 Creatinine Clr Calc Pharmacy 97.72 Normal [facility] Comment on above: Result Comment: PERF ORMED BY: [place] [address] PATHOLOGIST DIRECTOR OF CUSTOMER ACQUISITION FARNAZ ZULETA M.D. Performed By: #### U HCG, ADDONUAPLUS #### [address] GFR/1.73 sq M.predicted MDRD (S/P/Bld) [Vol rate/Area] mL/min/{1.73_m2} Normal [facility] Comment on above: Performed By: #### U HCG, ADDONUAPLUS #### [facility] [address] [place] [address] [place] Basophils Auto (Bld) [#/Vol] Ordered By: Sarah Childress on 04-02-2023 Basophils (Bld) [#/Vol] N/A [facility] Basophils/100 WBC Auto (Bld) Ordered By: Sarah Childress on 04-02-2023 Basophils/100 WBC (Bld) N/A [facility] Basophils/100 leukocytes in Blood by Manual countOrdered By: Sarah Monroe on 04-02-2023 Basophils/100 WBC (Bld) 1 % Normal 0-2 [facility] Comment on above: Performed By: #### U HCG, ADDONUAPLUS #### [facility] [address] Bilirubin Test strip Ql (U)O rdered By: Sarahsil Childress on 04-02-2023 Bilirubin Ql (U) Negative Negative [facility] Calcium [Mass/volume] in Ser um or PlasmaOrdered By: Sarah Childress on 04-02-2023 Calcium [Mass/Vol] 9.2 mg/dL Normal 8.6-10.3 [facility] Comment on above: Performed By: #### U HCG, ADDONUAPLUS #### [address] Carbon dioxide, total [Moles /volume] in Serum or PlasmaOrdered By: Sarah Childress on 04-02-2023 CO2 [Moles/Vol] 18.5 mmol/L Low 21.0-31.0 [facility] Comment on above: Performed By: #### U HCG, ADDONUAPLUS #### [facility] [address] [place] [address] Chloride [Moles/volume] in S binu or PlasmaOrdered By: Sarah Childress on 04-02-2023 Chloride [Moles/Vol] 108 mmol/L High 98-107 [facility] Comment on above: Performed By: #### U HCG, ADDONUAPLUS #### [facility] [address] [place] [address] Creatinine [Mass/volume] in Serum or PlasmaOrdered By: Sarah Childress on 04-02-2023 Creatinine [Mass/Vol] 0.84 mg/dL Normal 0.60-1.20 [facility] Comment on above: Performed By: #### U HCG, ADDONUAPLUS #### [facility] [address] [place] [address] [place] Diff and CBCon 04-02-2023 Hypochromasia Slight Normal [facility] Comment on above: Performed By: #### U HCG, ADDONUAPLUS #### [address] Mean Corpuscular HGB Conc 31.8 g/dL Low 32.0-35.0 [facility] Comment on above: Performed By: #### U HCG, ADDONUAPLUS #### [place] [address] [place] Monocytes/100 WBC (Bld) 18.83 % Normal 0.00-20.00 [facility] Comment on above: Performed By: #### U HCG, ADDONUAPLUS #### [address] Nucleated Red Blood Cell 3 /100{WBC} High 0-0 [facility] Comment on above: Performed By: #### U HCG, ADDONUAPLUS #### [address] Ovalocytes Slight Normal [facility] Comment on above: Performed By: #### U HCG, ADDONUAPLUS #### [address] Platelet Estimate Increased Normal Normal [facility] Comment on above: Performed By: #### U HCG, ADDONUAPLUS #### [address] Platelet Morphology Normal Normal Normal [facility] Comment on above: Result Comment: PERF ORMED BY: [place] [address] PATHOLOGIST DIRECTOR OF CUSTOMER ACQUISITION FARNAZ ZULETA M.D. Performed By: #### U HCG, ADDONUAPLUS #### [address] Poikilocytosis Slight Normal [facility] Comment on above: Performed By: #### U HCG, ADDONUAPLUS #### [address] Polychromasia Moderate Normal [facility] Comment on above: Performed By: #### U HCG, ADDONUAPLUS #### [facility] [address] [place] [address] [place] Smudge Cells Slight Normal [facility] Comment on above: Performed By: #### U HCG, ADDONUAPLUS #### [facility] [address] [place] [address] Toxic Vacuolation Slight Normal [facility] Comment on above: Performed By: #### U HCG, ADDONUAPLUS #### [facility] [address] [place] [address] [place] Dipstick and Microscopicon 1 Appearance (U) Clear Normal Clear [facility] Comment on above: Order Comment: Name Collection Type:: Clean-Voided Midstream Performed By: #### U HCG, ADDONUAPLUS #### [address] Bacteria,Urine None Seen Normal None Seen [facility] Comment on above: Order Comment: Name Collection Type:: Clean-Voided Midstream Performed By: #### U HCG, ADDONUAPLUS #### [place] [address] [place] Bilirubin,Urine Negative Normal Negative [facility] Comment on above: Order Comment: Name Collection Type:: Clean-Voided Midstream Performed By: #### U HCG, ADDONUAPLUS #### [address] Glucose Ql (U) Normal Normal Normal [facility] Comment on above: Order Comment: Name Collection Type:: Clean-Voided Midstream Performed By: #### U HCG, ADDONUAPLUS #### [facility] [address] [place] [address] [place] Hyaline Casts,Urine 0-8 Normal 0-8 [facility] Comment on above: Order Comment: Name Collection Type:: Clean-Voided Midstream Performed By: #### U HCG, ADDONUAPLUS #### [facility] [address] [place] [address] [place] Ketones Ql (U) Trace High Negative [facility] Comment on above: Order Comment: Name Collection Type:: Clean-Voided Midstream Performed By: #### U HCG, ADDONUAPLUS #### [address] Leukocyte esterase Test strip Ql (U) 1+ High Negative [facility] Comment on above: Order Comment: Name Collection Type:: Clean-Voided Midstream Performed By: #### U HCG, ADDONUAPLUS #### [address] Nitrite,Urine Negative Normal Negative [facility] Comment on above: Order Comment: Name Collection Type:: Clean-Voided Midstream Performed By: #### U HCG, ADDONUAPLUS #### [address] Occult Blood,Urine 3+ High Negative [facility] Comment on above: Order Comment: Name Collection Type:: Clean-Voided Midstream Performed By: #### U HCG, ADDONUAPLUS #### [address] Protein,Urine Negative Normal Negative [facility] Comment on above: Order Comment: Name Collection Type:: Clean-Voided Midstream Performed By: #### U HCG, ADDONUAPLUS #### [address] RBC,Urine 20-49 High 0-4 [facility] Comment on above: Order Comment: Name Collection Type:: Clean-Voided Midstream Performed By: #### U HCG, ADDONUAPLUS #### [place] [address] [place] Specificy [place],Urine 1.018 Normal 1.001-1.030 [facility] Comment on above: Order Comment: Name Collection Type:: Clean-Voided Midstream Performed By: #### U HCG, ADDONUAPLUS #### [place] [address] [place] Squamous Epithelial Cell,Urine 3-4 High 0-2 [facility] Comment on above: Order Comment: Name Collection Type:: Clean-Voided Midstream Performed By: #### U HCG, ADDONUAPLUS #### [address] [place] [address] [place] Urobilinogen,Urine Normal Normal Normal [facility] Comment on above: Order Comment: Name Collection Type:: Clean-Voided Midstream Performed By: #### U HCG, ADDONUAPLUS #### [address] WBC,Urine 3-4 Normal 0-4 [facility] Comment on above: Order Comment: Name Collection Type:: Clean-Voided Midstream Performed By: #### U HCG, ADDONUAPLUS #### [address] Eosinophils Auto (Bld) [#/Vo l]Ordered By: Sarah Childress on 04-02-2023 Eosinophils (Bld) [#/Vol] N/A [facility] Eosinophils/100 WBC Auto (Bl d)Ordered By: Sarah Childress on 04-02-2023 Eosinophils/100 WBC (Bld) N/A [facility] Eosinophils/100 leukocytes i n Blood by Manual countOrdered By: Sarah Childress on 04-02-2023 Eosinophils/100 WBC (Bld) 4 % High 1-3 [facility] Comment on above: Performed By: #### U HCG, ADDONUAPLUS #### [address] Erythrocyte distribution wid th [Ratio] by Automated countOrdered By: Sarah Childress on 04-02-2023 Erythrocyte distribution width (RBC) [Ratio] 15.2 % Normal 11.9-15.3 [facility] Comment on above: Performed By: #### U HCG, ADDONUAPLUS #### [address] Erythrocytes [#/volume] in B lood by Automated countOrdered By: Sarah Childress on 04-02-2023 RBC (Bld) [#/Vol] 4.67 10*6/uL Normal 3.60-5.00 [facility] Comment on above: Performed By: #### U HCG, ADDONUAPLUS #### [address] Glucose [Mass/volume] in Ser um or PlasmaOrdered By: Sarah Childress on 04-02-2023 Glucose [Mass/Vol] 94 mg/dL Normal 70-100 [facility] Comment on above: ADA recommended refe rence rangeRandom Glucose Reference Range is dependent on time and content of last meal. Glucose of more than 200 mg/dL in a nonstressed, ambulatory subject supports the diagnosis of Diabetes Mellitus. Result Comment: Darragh om Glucose Reference Range is dependent on time and content of last meal. Glucose of more than 200 mg/dL in a nonstressed, ambulatory subject supports the diagnosis of Diabetes Mellitus. ADA recommended reference range Performed By: #### U HCG, ADDONUAPLUS #### [facility] [address] [place] [address] HCG ( test) [place].rapi d Ql (U)Ordered By: Sarah Childress on 04-02-2023 HCG ( test) Ql (U) Negative [facility] HCG,Urineon 04-02-2023 Beta HCG ( test) Ql (U) Negative Normal [facility] Comment on above: Order Comment: Name Collection Type:: Clean-Voided Midstream Result Comment: PERF ORMED BY: [place] [address] PATHOLOGIST DIRECTOR OF CUSTOMER ACQUISITION FARNAZ ZULETA M.D. Performed By: #### U HCG, ADDONUAPLUS #### [facility] [address] [place] [address] Hematocrit [Volume Fraction] of Blood by Automated countOrdered By: Sarah Childress on 04-02-2023 Hematocrit (Bld) [Volume fraction] 36.1 % Normal 34.0-46.4 [facility] Comment on above: Performed By: #### U HCG, ADDONUAPLUS #### [address] Hemoglobin [Mass/volume] in BloodOrdered By: Sarah Childress on 04-02-2023 Hemoglobin (Bld) [Mass/Vol] 11.5 g/dL Low 11.8-15.4 [facility] Comment on above: Performed By: #### U HCG, ADDONUAPLUS #### [facility] [address] Hypochromia LM Ql (Bld)Order ed By: Sarah Childress on 04-02-2023 Hypochromia Ql (Bld) Slight [facility] Ketones Auto test strip (U) [Mass/Vol]Ordered By: Sarah Childress on 04-02-2023 Ketones (U) [Mass/Vol] Trace Negative [facility] - UrinalysisOrder ed By: Sarah Childress on 04-02-2023 Hyaline casts LM Ql (Urine sed) 0-8 [LPF] 0-8 [facility] Leukocytes [#/volume] correc flo for nucleated erythrocytes in Blood by Automated counOrdered By: Sarah Childress on 04-02-2023 WBC corrected for nucl RBC Auto (Bld) [#/Vol] 6.8 10*3/uL 3.8-11.6 [facility] Leukocytes [#/volume] in Blo od by Automated countOrdered By: Sarah Childress on 04-02-2023 WBC (Bld) [#/Vol] 6.8 10*3/uL Normal 3.8-11.6 [facility] Comment on above: Performed By: #### U HCG, ADDONUAPLUS #### [facility] [address] [place] [address] [place] Lymphocytes Auto (Bld) [#/Vo l]Ordered By: Sarah Childress on 04-02-2023 Lymphocytes (Bld) [#/Vol] N/A [facility] Lymphocytes/100 WBC Auto (Bl d)Ordered By: Sarah Childress on 04-02-2023 Lymphocytes/100 WBC (Bld) N/A [facility] Lymphocytes/100 leukocytes i n Blood by Manual countOrdered By: Sarah Childress on 04-02-2023 Lymphocytes/100 WBC (Bld) 43 % High 18-42 [facility] Comment on above: Performed By: #### U HCG, ADDONUAPLUS #### [facility] [address] [place] [address] [place] MCH [Entitic mass] by Automa flo countOrdered By: Sarah Childress on 04-02-2023 MCH (RBC) [Entitic mass] 24.5 pg Low 24.7-34.3 [facility] Comment on above: Performed By: #### U HCG, ADDONUAPLUS #### [facility] [address] [place] [address] MCHC Auto (RBC) [Mass/Vol]Or dered By: Sarah Childress on 04-02-2023 MCHC (RBC) [Mass/Vol] 31.8 g/dL 32.0-35.0 [facility] MCV [Entitic volume] by Auto mated countOrdered By: Sarah Childress on 04-02-2023 MCV (RBC) [Entitic vol] 77.3 fL Low 80-100 [facility] Comment on above: Performed By: #### U HCG, ADDONUAPLUS #### [facility] [address] [place] [address] Manual blood segmented neutr ophils/100 leukocytesOrdered By: Sarah Childress on 04-02-2023 Segmented neutrophils/100 WBC (Bld) 47 % Low 50-70 [facility] Comment on above: Performed By: #### U HCG, ADDONUAPLUS #### [facility] [address] [place] [address] Monocyte distribution width [Entitic volume] in Blood by AutomatedOrdered By: Sarah Childress on 04-02-2023 Monocyte distribution width Auto (Bld) [Entitic vol] 18.83 % 0.00-20.00 [facility] Monocytes Auto (Bld) [#/Vol] Ordered By: Sarah Childress on 04-02-2023 Monocytes (Bld) [#/Vol] N/A [facility] Monocytes/100 WBC Auto (Bld) Ordered By: Sarah Childress on 04-02-2023 Monocytes/100 WBC (Bld) N/A [facility] Monocytes/100 leukocytes in Blood by Manual countOrdered By: Sarah Childress on 04-02-2023 Monocytes/100 WBC (Bld) 5 % Normal 2-11 [facility] Comment on above: Performed By: #### U HCG, ADDONUAPLUS #### [facility] [address] [place] [address] [facility] Neutrophils Auto (Bld) [#/Vo l]Ordered By: Sarah Childress on 04-02-2023 Neutrophils (Bld) [#/Vol] N/A [facility] Neutrophils/100 WBC Auto (Bl d)Ordered By: Sarah Childress on 04-02-2023 Neutrophils/100 WBC (Bld) N/A [facility] Nitrite Test strip Ql (U)Ord ered By: Sarah Childress on 04-02-2023 Nitrite Ql (U) Negative Negative [facility] No Panel InformationOrdered By: Sarah Childress on 04-02-2023 Estimated GFR (CKD-EPI) > 60.0 mL/Min [facility] Creatinine Clearance (Chem 97.72 [facility] Nucleated RBC/100 WBC Manual cnt (Bld) [Ratio]Ordered By: Sarah Childress on 04-02-2023 Nucleated RBC/100 WBC (Bld) [Ratio] 3 /100{WBC} 0-0 [facility] Nucleated erythrocytes [Pres ence] in Blood by Automated countOrdered By: Sarah Childress on 04-02-2023 Nucleated RBC Auto Ql (Bld) N/A [facility] Ovalocyte detectionOrdered B y: Sarah Childress on 04-02-2023 Ovalocytes LM Ql (Bld) Slight [facility] Platelet adequacy [Presence] in Blood by Light microscopyOrdered By: Sarah Childress on 04-02-2023 Platelets LM Ql (Bld) Increased Normal [facility] Platelet mean volume [Entiti c volume] in Blood by Automated countOrdered By: Sarah Childress on 04-02-2023 Platelet mean volume (Bld) [Entitic vol] 8.1 fL Normal 6.3-10.7 [facility] Comment on above: Result Comment: PERF ORMED BY: [facility] [address] [place] [address] PATHOLOGIST DIRECTOR OF CUSTOMER ACQUISITION FARNAZ ZULETA M.D. Performed By: #### U HCG, ADDONUAPLUS #### [address] Platelet morphology finding [Identifier] in BloodOrdered By: Sarah Childress on 04-02-2023 Platelet morphology finding Nom (Bld) Normal Normal [facility] Platelets [#/volume] in Bloo d by Automated countOrdered By: Sarah Childress on 04-02-2023 Platelets (Bld) [#/Vol] 492 10*3/uL High 150-450 [facility] Comment on above: Performed By: #### U HCG, ADDONUAPLUS #### [address] Poikilocytosis [Presence] in Blood by Light microscopyOrdered By: Sarah Childress on 04-02-2023 Poikilocytosis LM Ql (Bld) Slight [facility] Polychromasia [Presence] in Blood by Light microscopyOrdered By: Sarah Childress on 04-02-2023 Polychromasia LM Ql (Bld) Moderate [facility] Potassium [Moles/volume] in Serum or PlasmaOrdered By: Sarah Childress on 04-02-2023 Potassium [Moles/Vol] 3.7 mmol/L Normal 3.5-5.1 [facility] Comment on above: Performed By: #### U HCG, ADDONUAPLUS #### [facility] [address] [place] [address] Protein Auto test strip (U) [Mass/Vol]Ordered By: Sarah Childress on 04-02-2023 Protein (U) [Mass/Vol] Negative Negative [facility] RBC morphologyOrdered By: Carmen Childress on 04-02-2023 RBC morphology finding Nom (Bld) N/A [facility] Serum or plasma anion gap de terminationOrdered By: Sarah Childress on 04-02-2023 Anion gap [Moles/Vol] 14.2 mmol/L Normal 6.0-15.0 [facility] Comment on above: Performed By: #### U HCG, ADDONUAPLUS #### [facility] [address] [place] [address] Smudge cell detectionOrdered By: Sarah Childress on 04-02-2023 Smudge cells LM Ql (Bld) Slight [facility] Sodium [Moles/volume] in Ser um or PlasmaOrdered By: Sarah Childress on 04-02-2023 Sodium [Moles/Vol] 137 mmol/L Normal 136-145 [facility] Comment on above: Performed By: #### U HCG, ADDONUAPLUS #### [facility] [address] [place] [address] Specific gravity Auto test s trip (U) [Rel density]Ordered By: Sarah Childress on 04-02-2023 Specific gravity (U) [Rel density] 1.018 1.001-1.030 [facility] Squamous epithelial cells de tection in urine sediment by light microscopyOrdered By: Sarah Childress on 04-02-2023 Epithelial cells.squamous LM Ql (Urine sed) 3-4 [HPF] 0-2 [facility] Toxic leukocyte vacuolation detectionOrdered By: Sarah Childress on 04-02-2023 Leukocyte toxic vacuoles LM Ql (Bld) Slight [facility] Urea nitrogen [Mass/volume] in Serum or PlasmaOrdered By: Sarah Childress on 04-02-2023 Urea nitrogen [Mass/Vol] 9 mg/dL Normal 7-25 [facility] Comment on above: Performed By: #### U HCG, ADDONUAPLUS #### [facility] [address] [place] [address] Urine bacteria detection by automated methodOrdered By: Sarah Childress on 04-02-2023 Bacteria Auto Ql (U) None seen None Seen [facility] Urine clarity by refractomet ry automatedOrdered By: Sarah Childress on 04-02-2023 Clarity Refractometry automated (U) Clear Clear [facility] Urine glucose measurement by automated test strip (mass/volume)Ordered By: Sarah Childress on 04-02-2023 Glucose Auto test strip (U) [Mass/Vol] Normal mg/dL Normal [facility] Urine hemoglobin detection b y automated test stripOrdered By: Sarah Childress on 04-02-2023 Hemoglobin Auto test strip Ql (U) 3+ Negative [facility] Urine leukocyte esterase det ection by automated test stripOrdered By: Sarah Childress on 04-02-2023 Leukocyte esterase Auto test strip Ql (U) 1+ Negative [facility] Urine pH measurement by auto mated test stripOrdered By: Sarah Childress on 04-02-2023 pH (U) 6.0 [pH] Normal 5.0-9.0 [facility] Comment on above: Order Comment: Name Collection Type:: Clean-Voided Midstream Performed By: #### U HCG, ADDONUAPLUS #### [address] Urobilinogen Auto test strip (U) [Mass/Vol]Ordered By: Sarah Childress on 04-02-2023 Urobilinogen (U) [Mass/Vol] Normal mg/dL Normal [facility] Alanine aminotransferase [En zymatic activity/volume] in Serum or PlasmaOrdered By: Sarah Childress on 03-29-2023 ALT [Catalytic activity/Vol] 14 U/L Normal 7-52 [facility] Comment on above: Performed By: #### B MP, LIPASE, HEPATIC #### [place] [address] [place] Albumin [Mass/volume] in Ser um or Plasma by Bromocresol green (BCG) dye binding methoOrdered By: Sarah Childress on 03-29-2023 Albumin BCG dye [Mass/Vol] 4.0 g/dL 3.5-5.7 [facility] Alkaline phosphatase [Enzyma tic activity/volume] in Serum or PlasmaOrdered By: Sarah Childress on 03-29-2023 ALP [Catalytic activity/Vol] 61 U/L Normal 34-104 [facility] Comment on above: Performed By: #### B MP, LIPASE, HEPATIC #### [place] [address] [place] Aspartate aminotransferase [ Enzymatic activity/volume] in Serum or PlasmaOrdered By: Sarah Childress on 03-29-2023 AST [Catalytic activity/Vol] 19 U/L Normal 13-39 [facility] Comment on above: Performed By: #### B MP, LIPASE, HEPATIC #### [facility] [address] [place] [address] Automated basophil %Ordered By: Sarah Arangoarthy on 03-29-2023 Basophils/100 WBC (Bld) 1.3 % Normal . F [facility] Comment on above: Performed By: #### U HCG, ADDONUAPLUS #### [address] Automated basophil countOrde red By: Sarah Monroe on 03-29-2023 Basophils (Bld) [#/Vol] 0.1 10*3/uL Normal 0.0-0.2 [facility] Comment on above: Result Comment: PERF ORMED BY: [place] [address] PATHOLOGIST DIRECTOR OF CUSTOMER ACQUISITION FARNAZ ZULETA M.D. Performed By: #### U HCG, ADDONUAPLUS #### [address] Automated blood monocyte cou ntOrdered By: Sarah Monroe on 03-29-2023 Monocytes (Bld) [#/Vol] 0.6 10*3/uL Normal 0.0-0.8 [facility] Comment on above: Performed By: #### U HCG, ADDONUAPLUS #### [address] Automated eosinophil %Ordere d By: Sarah Monroe on 03-29-2023 Eosinophils/100 WBC (Bld) 1.8 % Normal . [facility] Comment on above: Performed By: #### U HCG, ADDONUAPLUS #### [address] Automated eosinophil countOr dered By: Sarah Monroe on 03-29-2023 Eosinophils (Bld) [#/Vol] 0.1 10*3/uL Normal 0.0-0.45 [facility] Comment on above: Performed By: #### U HCG, ADDONUAPLUS #### [facility] [address] Automated monocyte %Ordered By: Sarah Childress on 03-29-2023 Monocytes/100 WBC (Bld) 7.3 % Normal . [facility] Comment on above: Performed By: #### U HCG, ADDONUAPLUS #### [facility] [address] Automated neutrophil %Ordere d By: Sarah Childress on 03-29-2023 Neutrophils/100 WBC (Bld) 46.8 % Normal . [facility] Comment on above: Performed By: #### U HCG, ADDONUAPLUS #### [address] Automated urine color determ inationOrdered By: Sarah Childress on 03-29-2023 Color (U) Yellow Normal Yellow [facility] Comment on above: Order Comment: Name Collection Type:: Clean-Voided Midstream Performed By: #### H CGQNT #### [address] Basic Metabolic Panelon 03-13 Creatinine Clr Calc Pharmacy 134.47 Normal [facility] Comment on above: Performed By: #### B MP, LIPASE, HEPATIC #### [address] GFR/1.73 sq M.predicted MDRD (S/P/Bld) [Vol rate/Area] mL/min/{1.73_m2} Normal [facility] Comment on above: Performed By: #### B MP, LIPASE, HEPATIC #### [address] Bilirubin Test strip Ql (U)O rdered By: Sarah Childress on 03-29-2023 Bilirubin Ql (U) Negative Negative [facility] Bilirubin.direct [Mass/volum e] in Serum or PlasmaOrdered By: Sarah Childress on 03-29-2023 Bilirubin.direct [Mass/Vol] 0.10 mg/dL 0.03-0.18 [facility] Bilirubin.total [Mass/volume ] in Serum or PlasmaOrdered By: Sarah Childress on 03-29-2023 Bilirubin [Mass/Vol] 0.3 mg/dL Normal 0.3-1.0 [facility] Comment on above: Performed By: #### B MP, LIPASE, HEPATIC #### [facility] [address] [place] [id number] [facility] CT abdomen pelvis w conon CT abdomen pelvis w con [facility] [place] [address] [place] [address] CT Scan Report Signed Patient: Antonia Noyola MR#: [id number] : 1985 Acct:[id number] Age/Sex: 38 / F ADM Date: 03/29/23 Loc: Room: [address] [place] [address] Type: ADM IN Attending Dr: Christi Aquino [...] Alesha Tejada M.D.03/29/2023 7:14 AM Dictation Location: [place] [address] Transcribed By: [facility] 03/29/23713 Dictated By: Alesha Tejada MD 03/29/23709 Signed By: 03/29/23713 Normal [facility] Calcium [Mass/volume] in Ser um or PlasmaOrdered By: Sarah Childress on 03-29-2023 Calcium [Mass/Vol] 8.9 mg/dL Normal 8.6-10.3 [facility] Comment on above: Performed By: #### B MP, LIPASE, HEPATIC #### [address] Carbon dioxide, total [Moles /volume] in Serum or PlasmaOrdered By: Sarah Childress on 03-29-2023 CO2 [Moles/Vol] 22.2 mmol/L Normal 21.0-31.0 [facility] Comment on above: Performed By: #### B MP, LIPASE, HEPATIC #### [address] Chloride [Moles/volume] in S binu or PlasmaOrdered By: Sarah Childress on 03-29-2023 Chloride [Moles/Vol] 107 mmol/L Normal 98-107 [facility] Comment on above: Performed By: #### B MP, LIPASE, HEPATIC #### [address] Complete Blood Count Auto Di ffon 03-29-2023 Mean Corpuscular HGB Conc 32.0 g/dL Normal 32.0-35.0 [facility] Comment on above: Performed By: #### U HCG, ADDONUAPLUS #### [address] NRBC% 0.1 /100{WBC} Normal 0-0.5 [facility] Comment on above: Performed By: #### U HCG, ADDONUAPLUS #### [address] Creatinine [Mass/volume] in Serum or PlasmaOrdered By: Sarah Monroe on 03-29-2023 Creatinine [Mass/Vol] 0.63 mg/dL Normal 0.60-1.20 [facility] Comment on above: Performed By: #### B MP, LIPASE, HEPATIC #### [address] Erythrocyte distribution wid th [Ratio] by Automated countOrdered By: Sarah Monroe on 03-29-2023 Erythrocyte distribution width (RBC) [Ratio] 15.2 % Normal 11.9-15.3 [facility] Comment on above: Performed By: #### U HCG, ADDONUAPLUS #### [place] [address] [place] Erythrocytes [#/volume] in B lood by Automated countOrdered By: Sarah Monroe on 03-29-2023 RBC (Bld) [#/Vol] 4.34 10*6/uL Normal 3.60-5.00 [facility] Comment on above: Performed By: #### U HCG, ADDONUAPLUS #### [address] Glucose [Mass/volume] in Ser um or PlasmaOrdered By: Sarah Childress on 03-29-2023 Glucose [Mass/Vol] 90 mg/dL Normal 70-100 [facility] Comment on above: ADA recommended refe rence rangeRandom Glucose Reference Range is dependent on time and content of last meal. Glucose of more than 200 mg/dL in a nonstressed, ambulatory subject supports the diagnosis of Diabetes Mellitus. Result Comment: D[place]agh om Glucose Reference Range is dependent on time and content of last meal. Glucose of more than 200 mg/dL in a nonstressed, ambulatory subject supports the diagnosis of Diabetes Mellitus. ADA recommended reference range Performed By: #### B MP, LIPASE, HEPATIC #### [address] HCG ( test) [place].rapi d Ql (U)Ordered By: Sarah Childress on 03-29-2023 HCG ( test) Ql (U) Negative [facility] HCG,Urineon 03-29-2023 Beta HCG ( test) Ql (U) Negative Normal [facility] Comment on above: Order Comment: Name Collection Type:: Clean-Voided Midstream Result Comment: PERF ORMED BY: [place] [address] PATHOLOGIST DIRECTOR OF CUSTOMER ACQUISITION FARNAZ ZULETA M.D. Performed By: #### H CGQNT #### [address] Hematocrit [Volume Fraction] of Blood by Automated countOrdered By: Sarah Childress on 03-29-2023 Hematocrit (Bld) [Volume fraction] 32.6 % Low 34.0-46.4 [facility] Comment on above: Performed By: #### U HCG, ADDONUAPLUS #### [address] Hemoglobin [Mass/volume] in BloodOrdered By: Sarah Childress on 03-29-2023 Hemoglobin (Bld) [Mass/Vol] 10.4 g/dL Low 11.8-15.4 [facility] Comment on above: Performed By: #### U HCG, ADDONUAPLUS #### [address] Hepatic Panelon 03-29-2023 Albumin [Mass/Vol] 4.0 g/dL Normal 3.5-5.7 [facility] Comment on above: Performed By: #### B MP, LIPASE, HEPATIC #### [address] Bilirubin,Indirect 0.2 mg/dL Normal [facility] Comment on above: Performed By: #### B MP, LIPASE, HEPATIC #### [address] Bilirubin.indirect [Mass/Vol] 0.10 mg/dL Normal 0.03-0.18 [facility] Comment on above: Performed By: #### B MP, LIPASE, HEPATIC #### [facility] [address] [place] [address] Ketones Auto test strip (U) [Mass/Vol]Ordered By: Sarah Childress on 03-29-2023 Ketones (U) [Mass/Vol] Negative Negative [facility] Lactate [Moles/volume] in Se rum or PlasmaOrdered By: Megan Muniz on 03-29-2023 Lactate [Moles/Vol] 0.8 mmol/L Normal 0.5-2.2 [facility] Comment on above: Result Comment: PERF ORMED BY: [place] [address] PATHOLOGIST DIRECTOR OF CUSTOMER ACQUISITION FARNAZ ZULETA M.D. Performed By: #### H CGQNT #### [address] Leukocytes [#/volume] correc flo for nucleated erythrocytes in Blood by Automated counOrdered By: Sarah Childress on 03-29-2023 WBC corrected for nucl RBC Auto (Bld) [#/Vol] 7.5 10*3/uL 3.8-11.6 [facility] Leukocytes [#/volume] in Blo od by Automated countOrdered By: Sarah Childress on 03-29-2023 WBC (Bld) [#/Vol] 7.5 10*3/uL Normal 3.8-11.6 [facility] Comment on above: Performed By: #### U HCG, ADDONUAPLUS #### [facility] [address] [place] [address] Lipase [Enzymatic activity/v olume] in Serum or PlasmaOrdered By: Sarah Childress on 03-29-2023 Lipase [Catalytic activity/Vol] 30.0 U/L Normal 11.0-82.0 [facility] Comment on above: Result Comment: PERF ORMED BY: [place] [address] PATHOLOGIST DIRECTOR OF CUSTOMER ACQUISITION FARNAZ ZULETA M.D. Performed By: #### B MP, LIPASE, HEPATIC #### [facility] [address] [place] [address] [place] Lymphocytes [#/volume] in Bl ood by Automated countOrdered By: Sarah Childress on 03-29-2023 Lymphocytes (Bld) [#/Vol] 3.2 10*3/uL Normal 1.00-4.8 [facility] Comment on above: Performed By: #### U HCG, ADDONUAPLUS #### [address] Lymphocytes/100 leukocytes i n Blood by Automated countOrdered By: Sarah Childress on 03-29-2023 Lymphocytes/100 WBC (Bld) 42.8 % Normal . [facility] Comment on above: Performed By: #### U HCG, ADDONUAPLUS #### [address] MCH [Entitic mass] by Automa flo countOrdered By: Sarah Childress on 03-29-2023 MCH (RBC) [Entitic mass] 24.1 pg Low 24.7-34.3 [facility] Comment on above: Performed By: #### U HCG, ADDONUAPLUS #### [address] MCHC Auto (RBC) [Mass/Vol]Or dered By: Sarah Childress on 03-29-2023 MCHC (RBC) [Mass/Vol] 32.0 g/dL 32.0-35.0 [facility] MCV [Entitic volume] by Auto mated countOrdered By: Sarah Childress on 03-29-2023 MCV (RBC) [Entitic vol] 75.2 fL Low 80-100 [facility] Comment on above: Performed By: #### U HCG, ADDONUAPLUS #### [place] [address] [place] Neutrophils [#/volume] in Bl ood by Automated countOrdered By: Sarah Childress on 03-29-2023 Neutrophils (Bld) [#/Vol] 3.5 10*3/uL Normal 1.8-7.7 [facility] Comment on above: Performed By: #### U HCG, ADDONUAPLUS #### [facility] [address] Nitrite Test strip Ql (U)Ord ered By: Sarah Childress on 03-29-2023 Nitrite Ql (U) Negative Negative [facility] No Panel InformationOrdered By: Sarah Childress on 03-29-2023 Estimated GFR (CKD-EPI) > 60.0 mL/Min [facility] Creatinine Clearance (Chem 134.47 [facility] Nucleated erythrocytes [Pres ence] in Blood by Automated countOrdered By: Sarah Childress on 03-29-2023 Nucleated RBC Auto Ql (Bld) 0.1 /100{WBC} 0-0.5 [facility] Platelet mean volume [Entiti c volume] in Blood by Automated countOrdered By: Sarah Childress on 03-29-2023 Platelet mean volume (Bld) [Entitic vol] 8.0 fL Normal 6.3-10.7 [facility] Comment on above: Performed By: #### U HCG, ADDONUAPLUS #### [facility] [address] [place] [address] Platelets [#/volume] in Bloo d by Automated countOrdered By: Sarah Childress on 03-29-2023 Platelets (Bld) [#/Vol] 396 10*3/uL Normal 150-450 [facility] Comment on above: Performed By: #### U HCG, ADDONUAPLUS #### [facility] [address] [place] [address] Potassium [Moles/volume] in Serum or PlasmaOrdered By: Sarah Childress on 03-29-2023 Potassium [Moles/Vol] 3.6 mmol/L Normal 3.5-5.1 [facility] Comment on above: Performed By: #### B MP, LIPASE, HEPATIC #### [facility] [address] [place] [address] Protein Auto test strip (U) [Mass/Vol]Ordered By: Sarah Childress on 03-29-2023 Protein (U) [Mass/Vol] Negative Negative [facility] Protein [Mass/volume] in Ser um or PlasmaOrdered By: Sarah Childress on 03-29-2023 Protein [Mass/Vol] 6.8 g/dL Normal 6.4-8.9 [facility] Comment on above: Performed By: #### B MP, LIPASE, HEPATIC #### [address] Serum globulin measurement b y calculation (mass/volume)Ordered By: Sarah Childress on 03-29-2023 Globulin (S) [Mass/Vol] 2.8 g/dL Normal [facility] Comment on above: Performed By: #### B MP, LIPASE, HEPATIC #### [address] Serum or plasma albumin/glob ulin mass ratioOrdered By: Sarah Childress on 03-29-2023 Albumin/Globulin [Mass ratio] 1.4 {ratio} Normal [facility] Comment on above: Performed By: #### B MP, LIPASE, HEPATIC #### [address] Serum or plasma anion gap de terminationOrdered By: Sarah Childress on 03-29-2023 Anion gap [Moles/Vol] 12.4 mmol/L Normal 6.0-15.0 [facility] Comment on above: Performed By: #### B MP, LIPASE, HEPATIC #### [address] Serum or plasma non-glucuron idated bilirubin measurement (mass/volume)Ordered By: Sarah Childress on 03-29-2023 Bilirubin.indirect [Mass/Vol] 0.2 mg/dL [facility] Sodium [Moles/volume] in Ser um or PlasmaOrdered By: Sarah Childress on 03-29-2023 Sodium [Moles/Vol] 138 mmol/L Normal 136-145 [facility] Comment on above: Performed By: #### B MP, LIPASE, HEPATIC #### [facility] [address] [place] [id number] [facility] Specific gravity Auto test s trip (U) [Rel density]Ordered By: Sarah Childress on 03-29-2023 Specific gravity (U) [Rel density] 1.003 1.001-1.030 [facility] US transvaginalon 03-29-2023 US transvaginal [facility] [place] [address] [place] [id number] Ultrasound Report Signed Patient: Antonia Noyola MR#: [id number] : 1985 Acct:[id number] Age/Sex: 38 / F ADM Date: 03/29/23 Loc: Room: [address] [place] [address] Type: ADM IN Attending Dr: Christi Aquino MD Ordering Provider: Sarah Childress DO Date of Service: 03/29/23 US/US transvaginal: r/o L ovarian torsion ([id number]) US/US pelvic complete: PAIN Copies to: DO [...] Davi Figueroa M.D.03/29/2023 8:20 AM Dictation Location: [place] [address] Tech: Brooke Naveen Transcribed By: AMBER 03/29/23819 Dictated By: Davi Figueroa DO 03/29/23815 Signed By: 03/29/23819 Normal [facility] Urea nitrogen [Mass/volume] in Serum or PlasmaOrdered By: Sarah Childress on 03-29-2023 Urea nitrogen [Mass/Vol] 6 mg/dL Low 7-25 [facility] Comment on above: Performed By: #### B MP, LIPASE, HEPATIC #### [facility] [address] [place] [address] [place] Urinalysison 03-29-2023 Appearance (U) Clear Normal Clear [facility] Comment on above: Order Comment: Name Collection Type:: Clean-Voided Midstream Performed By: #### H CGQNT #### [address] Bilirubin,Urine Negative Normal Negative [facility] Comment on above: Order Comment: Name Collection Type:: Clean-Voided Midstream Performed By: #### H CGQNT #### [address] Glucose Ql (U) Normal Normal Normal [facility] Comment on above: Order Comment: Name Collection Type:: Clean-Voided Midstream Performed By: #### H CGQNT #### [address] Ketones Ql (U) Negative Normal Negative [facility] Comment on above: Order Comment: Name Collection Type:: Clean-Voided Midstream Performed By: #### H CGQNT #### [address] Leukocyte esterase Test strip Ql (U) Negative Normal Negative [facility] Comment on above: Order Comment: Name Collection Type:: Clean-Voided Midstream Performed By: #### H CGQNT #### [place] [address] [place] Nitrite,Urine Negative Normal Negative [facility] Comment on above: Order Comment: Name Collection Type:: Clean-Voided Midstream Performed By: #### H CGQNT #### [place] [address] [place] Occult Blood,Urine Negative Normal Negative [facility] Comment on above: Order Comment: Name Collection Type:: Clean-Voided Midstream Performed By: #### H CGQNT #### [address] Protein,Urine Negative Normal Negative [facility] Comment on above: Order Comment: Name Collection Type:: Clean-Voided Midstream Performed By: #### H CGQNT #### [address] Specificy [place],Urine 1.003 Normal 1.001-1.030 [facility] Comment on above: Order Comment: Name Collection Type:: Clean-Voided Midstream Performed By: #### H CGQNT #### [address] Urobilinogen,Urine Normal Normal Normal [facility] Comment on above: Order Comment: Name Collection Type:: Clean-Voided Midstream Performed By: #### H CGQNT #### [address] Urine clarity by refractomet ry automatedOrdered By: Sarah Childress on 03-29-2023 Clarity Refractometry automated (U) Clear Clear [facility] Urine glucose measurement by automated test strip (mass/volume)Ordered By: Sarah Childress on 03-29-2023 Glucose Auto test strip (U) [Mass/Vol] Normal mg/dL Normal [facility] Urine hemoglobin detection b y automated test stripOrdered By: Sarah Childress on 03-29-2023 Hemoglobin Auto test strip Ql (U) Negative Negative [facility] Urine leukocyte esterase det ection by automated test stripOrdered By: Sarah Childress on 03-29-2023 Leukocyte esterase Auto test strip Ql (U) Negative Negative [facility] Urine pH measurement by auto mated test stripOrdered By: Sarah Childress on 03-29-2023 pH (U) 7.5 [pH] Normal 5.0-9.0 [facility] Comment on above: Order Comment: Name Collection Type:: Clean-Voided Midstream Performed By: #### H CGQNT #### [place] [id number] [place] Urobilinogen Auto test strip (U) [Mass/Vol]Ordered By: Sarah Childress on 03-29-2023 Urobilinogen (U) [Mass/Vol] Normal mg/dL Normal [facility] Automated urine color determ inationOrdered By: Elier Jackson on 02-06-2023 Color (U) Yellow Normal Yellow [facility] Comment on above: Order Comment: Name Collection Type:: Clean-Voided Midstream Performed By: #### U A, CG #### [facility] [address] Bilirubin Test strip Ql (U)O rdered By: Elier Jackson on 02-06-2023 Bilirubin Ql (U) Negative Negative [facility] CT abdomen pelvis w conon CT abdomen pelvis w con [facility] [place] [address] [place] [address] CT Scan Report Signed Patient: Antonia Noyola MR#: [id number] : 1985 Acct:[id number] Age/Sex: 38 / F ADM Date: 02/05/23 Loc: ER Room: Type: [facility] ER Attending Dr: Copies to: [...] Betancur Jr., D.OEbenezer02/06/2023 11:23 AM Dictation Location: [place] [address] Transcribed By: [facility] 02/06/23 1123 Dictated By: Dennis Betancur Jr, DO 02/06/23 1109 Signed By: 02/06/23 1123 Normal [facility] HCG ( test) [place].rapi d Ql (U)Ordered By: Elier Jackson on 02-06-2023 HCG ( test) Ql (U) Negative [facility] HCG,Urineon 02-06-2023 Beta HCG ( test) Ql (U) Negative Normal [facility] Comment on above: Order Comment: Name Collection Type:: Clean-Voided Midstream Result Comment: PERF ORMED BY: [place] [address] PATHOLOGIST DIRECTOR OF CUSTOMER ACQUISITION FARNAZ ZULETA M.D. Performed By: #### U A, [facility] #### [address] Ketones Auto test strip (U) [Mass/Vol]Ordered By: Elier Jackson on 02-06-2023 Ketones (U) [Mass/Vol] Negative Negative Fi [facility] Nitrite Test strip Ql (U)Ord ered By: Elier Jackson on 02-06-2023 Nitrite Ql (U) Negative Negative [facility] Protein Auto test strip (U) [Mass/Vol]Ordered By: Elier Jackson on 02-06-2023 Protein (U) [Mass/Vol] Negative Negative Fi [facility] Specific gravity Auto test s trip (U) [Rel density]Ordered By: Elier Jackson on 02-06-2023 Specific gravity (U) [Rel density] 1.007 1.001-1.030 [facility] US pelvic completeon 023 US pelvic complete [facility] Main [place] [address] [place] [address] Ultrasound Report Signed Patient: Antonia Noyola MR#: [id number] : 1985 Acct:[id number] Age/Sex: 38 / F ADM Date: 02/05/23 Loc: ER Room: Type: [facility] ER Attending Dr: Ordering Provider: Elier Jackson DO Date of Service: 02/06/23 US/US pelvic complete: adnexa pain ([id number]) US/US transvaginal: . Copies to: Elier Jackson [...] Betancur Jr., D.O.02/06/2023 11:25 AM Dictation Location: [place] [address] Tech: Jada Webb Transcribed By: [facility] 02/06/23 1125 Dictated By: Dennis Betancur Jr, DO 02/06/23 1123 Signed By: 02/06/23 1125 Normal [facility] Urinalysison 02-06-2023 Appearance (U) Clear Normal Clear [facility] Comment on above: Order Comment: Name Collection Type:: Clean-Voided Midstream Performed By: #### U A UHCG #### [facility] [address] Bilirubin,Urine Negative Normal Negative [facility] Comment on above: Order Comment: Name Collection Type:: Clean-Voided Midstream Performed By: #### U A UHCG #### [facility] [address] [place] [address] Glucose Ql (U) Normal Normal Normal [facility] Comment on above: Order Comment: Name Collection Type:: Clean-Voided Midstream Performed By: #### U A, UHCG #### [address] Ketones Ql (U) Negative Normal Negative [facility] Comment on above: Order Comment: Name Collection Type:: Clean-Voided Midstream Performed By: #### U A, UHCG #### [address] Leukocyte esterase Test strip Ql (U) Negative Normal Negative [facility] Comment on above: Order Comment: Name Collection Type:: Clean-Voided Midstream Performed By: #### U A, UHCG #### [address] Nitrite,Urine Negative Normal Negative [facility] Comment on above: Order Comment: Name Collection Type:: Clean-Voided Midstream Performed By: #### U A, UHCG #### [place] [address] [place] Occult Blood,Urine Negative Normal Negative [facility] Comment on above: Order Comment: Name Collection Type:: Clean-Voided Midstream Performed By: #### U A, UHCG #### [place] [address] [place] Protein,Urine Negative Normal Negative [facility] Comment on above: Order Comment: Name Collection Type:: Clean-Voided Midstream Performed By: #### U A, UHCG #### [place] [address] [place] Specificy [place],Urine 1.007 Normal 1.001-1.030 [facility] Comment on above: Order Comment: Name Collection Type:: Clean-Voided Midstream Performed By: #### U A, UHCG #### [address] Urobilinogen,Urine Normal Normal Normal [facility] Comment on above: Order Comment: Name Collection Type:: Clean-Voided Midstream Performed By: #### U A UHCG #### [facility] [address] Urine clarity by refractomet ry automatedOrdered By: Elier Jackson on 02-06-2023 Clarity Refractometry automated (U) Clear Clear [facility] Urine glucose measurement by automated test strip (mass/volume)Ordered By: Elier Jackson on 02-06-2023 Glucose Auto test strip (U) [Mass/Vol] Normal mg/dL Normal [facility] Urine hemoglobin detection b y automated test stripOrdered By: Elier Jackson on 02-06-2023 Hemoglobin Auto test strip Ql (U) Negative Negative [facility] Urine leukocyte esterase det ection by automated test stripOrdered By: Elier Jackson on 02-06-2023 Leukocyte esterase Auto test strip Ql (U) Negative Negative [facility] Urine pH measurement by auto mated test stripOrdered By: Elier Jackson on 02-06-2023 pH (U) 7.0 [pH] Normal 5.0-9.0 [facility] Comment on above: Order Comment: Name Collection Type:: Clean-Voided Midstream Performed By: #### U A CG #### [facility] [address] [place] [address] Urobilinogen Auto test strip (U) [Mass/Vol]Ordered By: Elier Jackson on 02-06-2023 Urobilinogen (U) [Mass/Vol] Normal mg/dL Normal [facility] Alanine aminotransferase [En zymatic activity/volume] in Serum or PlasmaOrdered By: Elier Jackson on 02-05-2023 ALT [Catalytic activity/Vol] 13 U/L Normal 7-52 [facility] Comment on above: Performed By: #### H CGQNT #### [facility] [address] [place] [address] [place] Albumin [Mass/volume] in Ser um or Plasma by Bromocresol green (BCG) dye binding methoOrdered By: Elier Jackson on 02-05-2023 Albumin BCG dye [Mass/Vol] 4.2 g/dL 3.5-5.7 [facility] Alkaline phosphatase [Enzyma tic activity/volume] in Serum or PlasmaOrdered By: Elier Jackson on 02-05-2023 ALP [Catalytic activity/Vol] 52 U/L Normal 34-104 [facility] Comment on above: Performed By: #### H CGQNT #### [address] Aspartate aminotransferase [ Enzymatic activity/volume] in Serum or PlasmaOrdered By: Elier Jackson on 02-05-2023 AST [Catalytic activity/Vol] 12 U/L Low 13-39 [facility] Comment on above: Performed By: #### H CGQNT #### [address] Automated basophil %Ordered By: Elier Jackson on 02-05-2023 Basophils/100 WBC (Bld) 1.4 % Normal . [facility] Comment on above: Performed By: #### H EPATIC, LIPASE, BMP, CBC #### [address] Automated basophil countOrde red By: Elier Jackson on 02-05-2023 Basophils (Bld) [#/Vol] 0.1 10*3/uL Normal 0.0-0.2 [facility] Comment on above: Result Comment: PERF ORMED BY: [place] [address] PATHOLOGIST DIRECTOR OF CUSTOMER ACQUISITION FARNAZ ZULETA M.D. Performed By: #### H EPATIC, LIPASE, BMP, CBC #### [address] Automated blood monocyte cou ntOrdered By: Elier Jackson on 02-05-2023 Monocytes (Bld) [#/Vol] 0.7 10*3/uL Normal 0.0-0.8 [facility] Comment on above: Performed By: #### H EPATIC, LIPASE, BMP, CBC #### [address] Automated eosinophil %Ordere d By: Elier Jackson on 02-05-2023 Eosinophils/100 WBC (Bld) 1.5 % Normal . [facility] Comment on above: Performed By: #### H EPATIC, LIPASE, BMP, CBC #### [address] Automated eosinophil countOr dered By: Elier Jackson on 02-05-2023 Eosinophils (Bld) [#/Vol] 0.1 10*3/uL Normal 0.0-0.45 [facility] Comment on above: Performed By: #### H EPATIC, LIPASE, BMP, CBC #### [address] Automated monocyte %Ordered By: Elier Jackson on 02-05-2023 Monocytes/100 WBC (Bld) 8.4 % Normal . [facility] Comment on above: Performed By: #### H EPATIC, LIPASE, BMP, CBC #### [address] Automated neutrophil %Ordere d By: Elier Jackson on 02-05-2023 Neutrophils/100 WBC (Bld) 44.4 % Normal . [facility] Comment on above: Performed By: #### H EPATIC, LIPASE, BMP, CBC #### [address] Basic Metabolic Panelon 01-12 Creatinine Clr Calc Pharmacy 115.62 Normal [facility] Comment on above: Performed By: #### H CGQNT #### [address] GFR/1.73 sq M.predicted MDRD (S/P/Bld) [Vol rate/Area] mL/min/{1.73_m2} Normal [facility] Comment on above: Performed By: #### H CGQNT #### [address] Bilirubin.direct [Mass/volum e] in Serum or PlasmaOrdered By: Elier Jackson on 02-05-2023 Bilirubin.direct [Mass/Vol] 0.10 mg/dL 0.03-0.18 [facility] Bilirubin.total [Mass/volume ] in Serum or PlasmaOrdered By: Elier Jackson on 02-05-2023 Bilirubin [Mass/Vol] 0.3 mg/dL Normal 0.3-1.0 [facility] Comment on above: Performed By: #### H CGQNT #### [facility] [address] [place] [address] [place] Calcium [Mass/volume] in Ser um or PlasmaOrdered By: Elier Jackson on 02-05-2023 Calcium [Mass/Vol] 9.2 mg/dL Normal 8.6-10.3 [facility] Comment on above: Performed By: #### H CGQNT #### [facility] [address] [place] [address] [place] Carbon dioxide, total [Moles /volume] in Serum or PlasmaOrdered By: Elier Jackson on 02-05-2023 CO2 [Moles/Vol] 21.5 mmol/L Normal 21.0-31.0 [facility] Comment on above: Performed By: #### H CGQNT #### [facility] [address] [place] [address] [place] Chloride [Moles/volume] in S binu or PlasmaOrdered By: Elier Jackson on 02-05-2023 Chloride [Moles/Vol] 107 mmol/L Normal 98-107 [facility] Comment on above: Performed By: #### H CGQNT #### [facility] [address] [place] [address] [place] Choriogonadotropin.beta subu nit [Units/volume] in Serum or PlasmaOrdered By: Elier Jackson on 02-05-2023 HCG.beta subunit Qn m[IU]/mL [facility] Comment on above: Approximate Approxim ate hCG Gestational Age Range (mIU/ml) (weeks)0.2-1 5-50 1-2 50-500 2-3 100-5,000 3-4 500-10,000 4-5 1,000-50,000 5-6 10,000-100,000 6-8 15,000-200,000 8-12 10,000-100,000 HCG.beta subunit Qn Negative [facility] Complete Blood Count Auto Di ffon 02-05-2023 Mean Corpuscular HGB Conc 31.8 g/dL Low 32.0-35.0 [facility] Comment on above: Performed By: #### H EPATIC, LIPASE, BMP, CBC #### [address] Monocytes/100 WBC (Bld) 17.33 % Normal 0.00-20.00 T ryder [facility] Comment on above: Performed By: #### H EPATIC, LIPASE, BMP, CBC #### [address] NRBC% 0.1 /100{WBC} Normal 0-0.5 [facility] Comment on above: Performed By: #### H EPATIC, LIPASE, BMP, CBC #### [address] Creatinine [Mass/volume] in Serum or PlasmaOrdered By: Elier Jackson on 02-05-2023 Creatinine [Mass/Vol] 0.71 mg/dL Normal 0.60-1.20 [facility] Comment on above: Performed By: #### H CGQNT #### [address] Erythrocyte distribution wid th [Ratio] by Automated countOrdered By: Elier Jackson on 02-05-2023 Erythrocyte distribution width (RBC) [Ratio] 15.9 % High 11.9-15.3 [facility] Comment on above: Performed By: #### H EPATIC, LIPASE, BMP, CBC #### [address] Erythrocytes [#/volume] in B lood by Automated countOrdered By: Elier Jackson on 02-05-2023 RBC (Bld) [#/Vol] 4.78 10*6/uL Normal 3.60-5.00 [facility] Comment on above: Performed By: #### H EPATIC, LIPASE, BMP, CBC #### [place] [address] [place] Glucose [Mass/volume] in Ser um or PlasmaOrdered By: Elier Jackson on 02-05-2023 Glucose [Mass/Vol] 99 mg/dL Normal 70-100 [facility] Comment on above: ADA recommended refe rence rangeRandom Glucose Reference Range is dependent on time and content of last meal. Glucose of more than 200 mg/dL in a nonstressed, ambulatory subject supports the diagnosis of Diabetes Mellitus. Result Comment: Darragh om Glucose Reference Range is dependent on time and content of last meal. Glucose of more than 200 mg/dL in a nonstressed, ambulatory subject supports the diagnosis of Diabetes Mellitus. ADA recommended reference range Performed By: #### H CGQNT #### [address] HCG,Qualitative Serumon 01-12 HCG,Qualitative Serum Negative Normal [facility] Comment on above: Result Comment: PERF ORMED BY: [place] [address] PATHOLOGIST DIRECTOR OF CUSTOMER ACQUISITION FARNAZ ZULETA M.D. Performed By: #### U HCG, ADDONUAPLUS #### [address] HCG,Quantitativeon 3 HCG,Quantitative < 0.60 Normal [facility] Comment on above: Result Comment: Appr oximate Approximate hCG Gestational Age Range (mIU/ml) (weeks) 0.2-1 5-50 1-2 50-500 2-3 100-5,000 3-4 500-10,000 4-5 1,000-50,000 5-6 10,000-100,000 6-8 15,000-200,000 8-12 10,000-100,000 PERFORMED BY: [place] [address] PATHOLOGIST DIRECTOR OF CUSTOMER ACQUISITION FARNAZ ZULETA M.D. Performed By: #### H CGQNT #### [place] [id number] [facility] Hematocrit [Volume Fraction] of Blood by Automated countOrdered By: Elier Jackson on 02-05-2023 Hematocrit (Bld) [Volume fraction] 37.3 % Normal 34.0-46.4 [facility] Comment on above: Performed By: #### H EPATIC, LIPASE, BMP, CBC #### [facility] [address] Hemoglobin [Mass/volume] in BloodOrdered By: Elier Jackson on 02-05-2023 Hemoglobin (Bld) [Mass/Vol] 11.8 g/dL Normal 11.8-15.4 [facility] Comment on above: Performed By: #### H EPATIC, LIPASE, BMP, CBC #### [facility] [address] Hepatic Panelon 02-05-2023 Albumin [Mass/Vol] 4.2 g/dL Normal 3.5-5.7 [facility] Comment on above: Performed By: #### H CGQNT #### [address] Bilirubin,Indirect 0.2 mg/dL Normal [facility] Comment on above: Performed By: #### H CGQNT #### [address] Bilirubin.indirect [Mass/Vol] 0.10 mg/dL Normal 0.03-0.18 [facility] Comment on above: Performed By: #### H CGQNT #### [address] Leukocytes [#/volume] correc flo for nucleated erythrocytes in Blood by Automated counOrdered By: Elier Jackson on 02-05-2023 WBC corrected for nucl RBC Auto (Bld) [#/Vol] 8.1 10*3/uL 3.8-11.6 [facility] Leukocytes [#/volume] in Blo od by Automated countOrdered By: Elier Jackson on 02-05-2023 WBC (Bld) [#/Vol] 8.1 10*3/uL Normal 3.8-11.6 [facility] Comment on above: Performed By: #### H EPATIC, LIPASE, BMP, CBC #### [facility] [address] [place] [address] Lipase [Enzymatic activity/v olume] in Serum or PlasmaOrdered By: Elier Jackson on 02-05-2023 Lipase [Catalytic activity/Vol] 40.0 U/L Normal 11.0-82.0 [facility] Comment on above: Result Comment: PERF ORMED BY: [place] [address] PATHOLOGIST DIRECTOR OF CUSTOMER ACQUISITION FARNAZ ZULETA M.D. Performed By: #### H CGQNT #### [facility] [address] [place] [address] Lymphocytes [#/volume] in Bl ood by Automated countOrdered By: Elier Jackson on 02-05-2023 Lymphocytes (Bld) [#/Vol] 3.6 10*3/uL Normal 1.00-4.8 [facility] Comment on above: Performed By: #### H EPATIC, LIPASE, BMP, CBC #### [facility] [address] [place] [address] Lymphocytes/100 leukocytes i n Blood by Automated countOrdered By: Elier Jackson on 02-05-2023 Lymphocytes/100 WBC (Bld) 44.3 % Normal . [facility] Comment on above: Performed By: #### H EPATIC, LIPASE, BMP, CBC #### [facility] [address] [place] [address] MCH [Entitic mass] by Automa flo countOrdered By: Elier Jackson on 02-05-2023 MCH (RBC) [Entitic mass] 24.8 pg Normal 24.7-34.3 [facility] Comment on above: Performed By: #### H EPATIC, LIPASE, BMP, CBC #### [facility] [address] [place] [address] [place] MCHC Auto (RBC) [Mass/Vol]Or dered By: Elier Jackson on 02-05-2023 MCHC (RBC) [Mass/Vol] 31.8 g/dL 32.0-35.0 [facility] MCV [Entitic volume] by Auto mated countOrdered By: Elier Jackson on 02-05-2023 MCV (RBC) [Entitic vol] 78.1 fL Low 80-100 [facility] Comment on above: Performed By: #### H EPATIC, LIPASE, BMP, CBC #### [facility] [address] Monocyte distribution width [Entitic volume] in Blood by AutomatedOrdered By: Elier Jackson on 02-05-2023 Monocyte distribution width Auto (Bld) [Entitic vol] 17.33 % 0.00-20.00 [facility] Neutrophils [#/volume] in Bl ood by Automated countOrdered By: Elier Jackson on 02-05-2023 Neutrophils (Bld) [#/Vol] 3.6 10*3/uL Normal 1.8-7.7 [facility] Comment on above: Performed By: #### H EPATIC, LIPASE, BMP, CBC #### [facility] [address] [place] [address] No Panel InformationOrdered By: Elier Jackson on 02-05-2023 Estimated GFR (CKD-EPI) > 60.0 mL/Min [facility] Creatinine Clearance (Chem 115.62 [facility] Nucleated erythrocytes [Pres ence] in Blood by Automated countOrdered By: Elier Jackson on 02-05-2023 Nucleated RBC Auto Ql (Bld) 0.1 /100{WBC} 0-0.5 [facility] Platelet mean volume [Entiti c volume] in Blood by Automated countOrdered By: Elier Jackson on 02-05-2023 Platelet mean volume (Bld) [Entitic vol] 8.0 fL Normal 6.3-10.7 [facility] Comment on above: Performed By: #### H EPATIC, LIPASE, BMP, CBC #### [facility] [address] [place] [address] [place] Platelets [#/volume] in Bloo d by Automated countOrdered By: Elier Jackson on 02-05-2023 Platelets (Bld) [#/Vol] 398 10*3/uL Normal 150-450 [facility] Comment on above: Performed By: #### H EPATIC, LIPASE, BMP, CBC #### [facility] [address] [place] [address] Potassium [Moles/volume] in Serum or PlasmaOrdered By: Elier Jackson on 02-05-2023 Potassium [Moles/Vol] 3.4 mmol/L Low 3.5-5.1 [facility] Comment on above: Performed By: #### H CGQNT #### [address] Protein [Mass/volume] in Ser um or PlasmaOrdered By: Elier Jackson on 02-05-2023 Protein [Mass/Vol] 7.2 g/dL Normal 6.4-8.9 [facility] Comment on above: Performed By: #### H CGQNT #### [address] Serum globulin measurement b y calculation (mass/volume)Ordered By: Elier Jackson on 02-05-2023 Globulin (S) [Mass/Vol] 3.0 g/dL Normal [facility] Comment on above: Performed By: #### H CGQNT #### [address] Serum or plasma albumin/glob ulin mass ratioOrdered By: Elier Jackson on 02-05-2023 Albumin/Globulin [Mass ratio] 1.4 {ratio} Normal [facility] Comment on above: Performed By: #### H CGQNT #### [facility] [address] [place] [address] Serum or plasma anion gap de terminationOrdered By: Elier Jackson on 02-05-2023 Anion gap [Moles/Vol] 11.9 mmol/L Normal 6.0-15.0 [facility] Comment on above: Performed By: #### H CGQNT #### [facility] [address] [place] [address] Serum or plasma non-glucuron idated bilirubin measurement (mass/volume)Ordered By: Elier Jackson on 02-05-2023 Bilirubin.indirect [Mass/Vol] 0.2 mg/dL [facility] Sodium [Moles/volume] in Ser um or PlasmaOrdered By: Elier Jackson on 02-05-2023 Sodium [Moles/Vol] 137 mmol/L Normal 136-145 [facility] Comment on above: Performed By: #### H CGQNT #### [facility] [address] [place] [id number] [facility] Urea nitrogen [Mass/volume] in Serum or PlasmaOrdered By: Elier Velásquezarleen on 02-05-2023 Urea nitrogen [Mass/Vol] 6 mg/dL Low 7-25 [facility] Comment on above: Performed By: #### H CGQNT #### [facility] [address] [place] [id number] [facility] GENITAL CULTUREon 08-01-2022 Genital Culture, Routine Final report Abnormal [facility] Comment on above: Result Comment: Spec imen stability note: A swab transport (ie., ESwab, Amies agar gel) received by the lab more than 24 hours after collection may result in reduced recovery of Neisseria gonorrhoeae (GC). (This is informational only and may not apply to this specimen.) Performed By: #### C XGENIT #### [facility] [address] [place] [address] [address] Rod Ramirez Result 1 Comment Abnormal [facility] Comment on above: Result Comment: Beta [...] (CLSI) Performed By: #### C XGENIT #### [facility] [address] [place] [address] [address] Rod Ramirez Result 2 Comment Normal [facility] Comment on above: Result Comment: Rout ine genital rashid. Light growth Performed By: #### C XGENIT #### [facility] [address] [place] [address] [address] Rod Ramirez CBC AUTO DIFFon 07-28-2022 BASO # 0.0 103/ul Normal 0.0-0.[address] [facility] Comment on above: Performed By: #### C BC #### [facility] [address] [place] [address] [address] Rod Ramirez Basophils/100 WBC (Bld) 0.4 % Normal 0.2-2.0 [facility] Comment on above: Performed By: #### C BC #### [place] [facility] [address] [place] [address] Dr. Rod Ramirez EO # 0.1 103/ul Normal 0.0-0.[address] [facility] Comment on above: Performed By: #### C BC #### [facility] [address] [place] [address] Dr. Rod Ramirez Eosinophils/100 WBC (Bld) 1.5 % Normal 0.9-7.[address] [facility] Comment on above: Performed By: #### C BC #### [facility] [address] [place] [address] Dr. Rod Ramirez Erythrocyte distribution width (RBC) [Ratio] 12.9 % Normal 11.0-15.[address] [facility] Comment on above: Performed By: #### C BC #### [facility] [address] [place] [address] Dr. Rod Ramirez Hematocrit (Bld) [Volume fraction] 40.9 % Normal 36.0-48.[address] [facility] Comment on above: Performed By: #### C BC #### [facility] [address] [place] [address] Dr. Rod Ramirez Hemoglobin (Bld) [Mass/Vol] 13.7 g/dL Normal 12.0-16.[address] [facility] Comment on above: Performed By: #### C BC #### [facility] [address] [place] [address] Dr. Rod Ramirez IG # 0.02 10e3/ul Normal 0.00-0.[address] [facility] Comment on above: Performed By: #### C BC #### [facility] [address] [place] [address] Dr. Rod Ramirez IG % 0.3 % Normal 0.0-0.[address] [facility] Comment on above: Performed By: #### C BC #### [facility] [address] [place] [address] Dr. Rod Ramirez LYMPH # 1.6 103/ul Normal 1.2-3.[address] [facility] Comment on above: Performed By: #### C BC #### [facility] [address] [place] [address] Dr. Rod Ramirez Lymphocytes/100 WBC (Bld) 23.6 % Normal 20.5-60.[address] [facility] Comment on above: Performed By: #### C BC #### [facility] [address] [place] [address] Dr. Rod Ramirez MANUAL DIFF REQ NO Normal [facility] Comment on above: Performed By: #### C BC #### [facility] [address] [place] [address] Dr. Rod Ramirez MCH (RBC) [Entitic mass] 27.7 pg Normal 26.7-34.[address] [facility] Comment on above: Performed By: #### C BC #### [facility] [address] [place] [address] Dr. Rod Ramirez MCHC (RBC) [Mass/Vol] 33.5 g/dL Normal 29.9-35.[address] [facility] Comment on above: Performed By: #### C BC #### [facility] [address] [place] [address] Dr. Rod Ramirez MCV (RBC) [Entitic vol] 82.6 fL Normal 81.0-99.0 [facility] Comment on above: Performed By: #### C BC #### [facility] [address] [place] [address] Dr. Rod Ramirez MONO # 0.4 103/ul Normal 0.3-0.[address] [facility] Comment on above: Performed By: #### C BC #### [facility] [address] [place] [address] Dr. Rod Ramirez Monocytes/100 WBC (Bld) 6.4 % Normal 1.7-12.0 [facility] Comment on above: Performed By: #### C BC #### [facility] [address] [place] [address] Dr. Rod Ramirez NEUT # 4.6 103/ul Normal 1.4-6.[address] [facility] Comment on above: Performed By: #### C BC #### [facility] [address] [place] [address] Dr. Rod Ramirez Neutrophils/100 WBC (Bld) 67.8 % Normal 43.0-75.[address] [facility] Comment on above: Performed By: #### C BC #### [facility] [address] [place] [address] Dr. Rod Ramirez Platelet mean volume (Bld) [Entitic vol] 9.4 fL Critically low 9.5-13.[address] [facility] Comment on above: Performed By: #### C BC #### [facility] [address] [place] [address] Dr. Rod Ramirez PLT 439 103/ul Normal 150-[address] [facility] Comment on above: Performed By: #### C BC #### [facility] [address] [place] [address] Dr. Rod Ramirez RBC 4.95 106/ul Normal 4.20-5.[address] [facility] Comment on above: Performed By: #### C BC #### [facility] [address] [place] [address] Dr. Rod Ramirez WBC 6.7 103/ul Normal 4.0-11.[address] [facility] Comment on above: Performed By: #### C BC #### [facility] [address] [place] [address] Dr. Rod Ramirez PREG HCG QUALon 07-28-2022 , QUAL Negative Normal NEGATIVE [facility] Comment on above: Performed By: #### P REG #### [facility] [address] [place] [address] Dr. Rod Ramirez PROF CHEM 8 (BAS METB)on Anion gap [Moles/Vol] 15.5 mmol/L Normal [facility] Comment on above: Performed By: #### B MP #### [facility] [address] [address] [address] Rod Ramirez Calcium [Mass/Vol] 9.0 mg/dL Normal 8.5-10.1 [facility] Comment on above: Performed By: #### B MP #### [facility] [address] [address] [address] Rod Ramirez Chloride [Moles/Vol] 103 mmol/L Normal 98-[address] [facility] Comment on above: Performed By: #### B MP #### [facility] [address] [address] [address] Rod Ramirez CO2 [Moles/Vol] 23.9 mmol/L Normal 21.0-32.0 [facility] Comment on above: Performed By: #### B MP #### [facility] [address] [address] [address] Rod Ramirez Creatinine [Mass/Vol] 0.79 mg/dL Normal 0.55-1.[address] [facility] Comment on above: Performed By: #### B MP #### [facility] [address] [address] [address] Rod Ramirez EGFR-AF SOUTH [place]UDANESE >60 Normal >=60 [facility] Comment on above: Performed By: #### B MP #### [facility] [address] [address] [address] Rod Ramirez EGFR-NON AF [place] >60 Normal >=[address] [facility] Comment on above: Performed By: #### B MP #### [facility] [address] [address] [address] Rod Ramirez Glucose [Mass/Vol] 108 mg/dL Critically high 74-106 [facility] Comment on above: Performed By: #### B MP #### [facility] [address] [address] [address] Rod Ramirez Potassium [Moles/Vol] 3.4 mmol/L Critically low 3.5-5.[address] [facility] Comment on above: Performed By: #### B MP #### [facility] [address] [address] [address] Rod Ramirez Sodium [Moles/Vol] 139 mmol/L Normal 136-145 [facility] Comment on above: Performed By: #### B MP #### [facility] [address] [address] [address] Rod Ramirez Urea nitrogen [Mass/Vol] 7.0 mg/dL Normal 7.0-18.[address] [facility] Comment on above: Performed By: #### B MP #### [facility] [address] [address] [address] Rod Ramirez Urea nitrogen/Creatinine [Mass ratio] 8.9 mg/mg Normal [facility] Comment on above: Performed By: #### B MP #### [facility] [address] [address] [address] Rod Ramirez US PELVIS TRANSVAGon 023 [...] AUBREY BURKS Date: 2022-07-28 07:46 Normal [facility] WET PREPon 07-28-2022 CLUE CELLS NONE SEEN Normal NONE SEEN [facility] Comment on above: Performed By: #### W P #### [facility] [address] [address] [address] Rod Ramirez FUNGAL ELEMENTS NONE SEEN Normal NONE SEEN [facility] Comment on above: Performed By: #### W P #### [facility] [address] [address] [address] Rod Ramirez RBC -WET PREP RARE Abnormal NONE SEEN [facility] Comment on above: Performed By: #### W P #### [facility] [address] [address] [address] Rod Ramirez TRICHOMONAS NONE SEEN Normal NONE SEEN [facility] Comment on above: Performed By: #### W P #### [facility] [address] [address] [address] Rod Ramirez WBC- WET PREP RARE Abnormal NONE SEEN [facility] Comment on above: Performed By: #### W P #### [facility] [address] [address] [address] Rod Ramirez WET PREP BACTERIA NONE SEEN Normal NONE SEEN [facility] Comment on above: Performed By: #### W P #### [facility] [address] [address] [address] Rod Morales 04-30-2022 CNPN Telephone (HEMASA) ANTONIA NOYOLA ([id number]) 1985 F Date Time Provider Department 04/30/22 [...] Fully Assessed Reason for Visit: Lab Orders [6588] Primary Visit Diagnosis:Iron deficiency anemia due to chronic blood loss [D50.0] Order(s):COMP METABOLIC PANEL [SQCMP] Order #: [id number] FUTURE Prescriptions as of 05/03/2022 - ALPRAZolam [...] Status:Closed by MADYSON NI on 05/03/22 Normal [facility] Anisocytosis LM Ql (Bld)Orde red By: Yevgeniy Cabrera on 04-28-2022 Anisocytosis Ql (Bld) Marked [facility] Automated erythrocytes count in urine sediment (number/area)Ordered By: Yevgeniy Cabrera on 04-28-2022 RBC Auto (Urine sed) [#/Area] None seen [HPF] 0-4 [facility] Automated leukocytes count i n urine sediment (number/area)Ordered By: Yevgeniy Cabrera on 04-28-2022 WBC Auto (Urine sed) [#/Area] 3-4 [HPF] 0-4 [facility] Basophils Auto (Bld) [#/Vol] Ordered By: Yevgeniy Cabrera on 04-28-2022 Basophils (Bld) [#/Vol] 0.1 10*3/uL 0.0-0.2 [facility] Basophils/100 WBC Auto (Bld) Ordered By: Yevgeniy Cabrera on 04-28-2022 Basophils/100 WBC (Bld) 1.0 % . [facility] Bilirubin Test strip Ql (U)O rdered By: Yevgeniy Cabrera on 04-28-2022 Bilirubin Ql (U) Negative Negative [facility] Body fluid albumin measureme nt (mass/volume)Ordered By: Yevgeniy Cabrera on 04-28-2022 Albumin (Body fld) [Mass/Vol] 3.8 g/dL 3.2-5.5 [facility] Color Auto (U)Ordered By: Marcus Cabrera on 04-28-2022 Color (U) Yellow Yellow [facility] Creatinine and Glomerular fi ltration rate.predicted panel (S/P/Bld)Ordered By: Yevgeniy Cabrera on 04-28-2022 Creatinine [Mass/Vol] 0.62 mg/dL 0.44-1.03 [facility] Eosinophils Auto (Bld) [#/Vo l]Ordered By: Yevgeniy Cabrera on 04-28-2022 Eosinophils (Bld) [#/Vol] 0.1 10*3/uL 0.0-0.45 [facility] Eosinophils/100 WBC Auto (Bl d)Ordered By: Yevgeniy Cabrera on 04-28-2022 Eosinophils/100 WBC (Bld) 1.0 % . [facility] Erythrocyte distribution wid th Auto (RBC) [Ratio]Ordered By: Yevgeniy Cabrera on 04-28-2022 Erythrocyte distribution width (RBC) [Ratio] 27.1 % 11.9-15.3 [facility] Estimated glomerular filtrat ion rate (GFR) non- AmericanOrdered By: Yevgeniy Cabrera on 04-28-2022 GFR/1.73 sq M.predicted among non-blacks MDRD (S/P/Bld) [Vol rate/Area] > 60 mL/Min [facility] Globulin Calc (S) [Mass/Vol] Ordered By: Yevgeniy Cabrera on 04-28-2022 Globulin (S) [Mass/Vol] 3.1 g/dL [facility] HCG ( test) IA.rapi d Ql (U)Ordered By: Yevgeniy Cabrera on 04-28-2022 HCG ( test) Ql (U) Negative [facility] Hematocrit Auto (Bld) [Volum e fraction]Ordered By: Yevgeniy Cabrera on 04-28-2022 Hematocrit (Bld) [Volume fraction] 39.4 % 34.0-46.4 [facility] Hemoglobin [Mass/volume] in BloodOrdered By: Yevgeniy Cabrera on 11-16-2022 Hemoglobin (Bld) [Mass/Vol] 12.3 g/dL 11.8-15.4 [facility] Hypochromia LM Ql (Bld)Order ed By: Yevgeniy Cabrera on 04-28-2022 Hypochromia Ql (Bld) Slight [facility] Ketones Auto test strip (U) [Mass/Vol]Ordered By: Yevgeniy Cabrera on 04-28-2022 Ketones (U) [Mass/Vol] Negative Negative Fi [facility] - Hematology and Cell countsOrdered By: Yevgeniy Cabrera on 04-28-2022 Nucleated RBC/100 WBC (Bld) [Ratio] 0.0 % 0-0.5 [facility] - UrinalysisOrder ed By: Yevgeniy Cabrera on 04-28-2022 Hyaline casts LM Ql (Urine sed) None seen [LPF] 0-8 [facility] Leukocytes [#/volume] in Blo od by Automated countOrdered By: Yevgeniy Cabrera on 04-28-2022 WBC (Bld) [#/Vol] 7.9 10*3/uL 4.5-11.0 [facility] Lymphocytes Auto (Bld) [#/Vo l]Ordered By: Yevegniy Cabrera on 04-28-2022 Lymphocytes (Bld) [#/Vol] 2.3 10*3/uL 1.00-4.8 [facility] Lymphocytes/100 WBC Auto (Bl d)Ordered By: Yevgeniy Cabrera on 04-28-2022 Lymphocytes/100 WBC (Bld) 28.9 % . [facility] MCH Auto (RBC) [Entitic mass ]Ordered By: Yevgeniy Cabrera on 04-28-2022 MCH (RBC) [Entitic mass] 23.3 pg 24.7-34.3 [facility] MCHC Auto (RBC) [Mass/Vol]Or dered By: Yevgeniy Cabrera on 04-28-2022 MCHC (RBC) [Mass/Vol] 31.3 g/dL 32.0-35.0 [facility] MCV Auto (RBC) [Entitic vol] Ordered By: Yevgeniy Cabrera on 04-28-2022 MCV (RBC) [Entitic vol] 74.5 fL 80-100 [facility] Monocytes Auto (Bld) [#/Vol] Ordered By: Yevgeniy Cabrera on 04-28-2022 Monocytes (Bld) [#/Vol] 0.4 10*3/uL 0.0-0.8 [facility] Monocytes/100 WBC Auto (Bld) Ordered By: Yevgeniy Cabrera on 04-28-2022 Monocytes/100 WBC (Bld) 4.5 % . [facility] Neutrophils Auto (Bld) [#/Vo l]Ordered By: Yevgeniy Cabrera on 04-28-2022 Neutrophils (Bld) [#/Vol] 5.1 10*3/uL 1.8-7.7 [facility] Neutrophils/100 WBC Auto (Bl d)Ordered By: Yevgeniy Cabrera on 04-28-2022 Neutrophils/100 WBC (Bld) 64.6 % . [facility] Nitrite Test strip Ql (U)Ord ered By: Yevgeniy Cabrera on 04-28-2022 Nitrite Ql (U) Negative Negative [facility] No Panel InformationOrdered By: Yevgeniy Cabrera on 04-28-2022 Estimated GFR () > 60 mL/Min [facility] Comment on above: GFR estimated refere nce range: According to KDOQI guidelines, <60 ml/min/1.73m2 is sufficient to diagnose a patient with chronic kidney disease. Pharmacy Creatinine Clearance (Chem 132.36 [facility] Slides for Pathologist Review Ordered path review [facility] Ovalocyte detectionOrdered B y: Yevgeniy Cabrera on 04-28-2022 Ovalocytes LM Ql (Bld) Moderate [facility] Platelet adequacy [Presence] in Blood by Light microscopyOrdered By: Yevgeniy Cabrera on 04-28-2022 Platelets LM Ql (Bld) Normal Normal [facility] Platelet mean volume Auto (B ld) [Entitic vol]Ordered By: Yevgeniy Cabrera on 04-28-2022 Platelet mean volume (Bld) [Entitic vol] 7.4 fL 6.3-10.7 [facility] Platelet morphology finding [Identifier] in BloodOrdered By: Yevgeniy Cabrera on 04-28-2022 Platelet morphology finding Nom (Bld) Normal Normal [facility] Platelets Auto (Bld) [#/Vol] Ordered By: Yevgeniy Cabrera on 04-28-2022 Platelets (Bld) [#/Vol] 329 10*3/uL 150-450 [facility] Poikilocytosis [Presence] in Blood by Light microscopyOrdered By: Yevgeniy Cabrera on 04-28-2022 Poikilocytosis LM Ql (Bld) Moderate [facility] Polychromasia [Presence] in Blood by Light microscopyOrdered By: Yevgeniy Cabrera on 04-28-2022 Polychromasia LM Ql (Bld) Slight [facility] Protein Auto test strip (U) [Mass/Vol]Ordered By: Yevgeniy Cabrera on 04-28-2022 Protein (U) [Mass/Vol] Negative Negative Fi [facility] Protein [Mass/volume] in Ser um or PlasmaOrdered By: Yevgeniy Cabrera on 04-28-2022 Protein [Mass/Vol] 6.9 g/dL 6.1-7.9 [facility] RBC Auto (Bld) [#/Vol]Ordere d By: Yevgeniy Cabrera on 04-28-2022 RBC (Bld) [#/Vol] 5.29 10*6/uL 3.60-5.00 [facility] RBC morphologyOrdered By: Marcus Cabrera on 04-28-2022 RBC morphology finding Nom (Bld) N/A [facility] Serum or plasma alanine syed otransferase measurement without P-5'-P (enzymatic activiOrdered By: Yevgeniy Cabrera on 04-28-2022 ALT No additional P-5'-P [Catalytic activity/Vol] 43 U/L 10-60 [facility] Serum or plasma albumin/glob ulin mass ratioOrdered By: Yevgeniy Cabrera on 04-28-2022 Albumin/Globulin [Mass ratio] 1.2 {ratio} [facility] Serum or plasma alkaline zeeshan sphatase measurement (enzymatic activity/volume)Ordered By: Yevgeniy Cabrera on 04-28-2022 ALP [Catalytic activity/Vol] 65 U/L 32-92 [facility] Serum or plasma anion gap de terminationOrdered By: Yevgeniy Cabrera on 04-28-2022 Anion gap [Moles/Vol] 14.6 mmol/L 6.0-15.0 Fi [facility] Serum or plasma aspartate am inotransferase measurement (enzymatic activity/volume)Ordered By: Yevgeniy Cabrera on 04-28-2022 AST [Catalytic activity/Vol] 26 U/L [facility] Serum or plasma calcium donaldo urement (mass/volume)Ordered By: Yevgeniy Cabrera on 04-28-2022 Calcium [Mass/Vol] 9.3 mg/dL 8.2-10.2 [facility] Serum or plasma chloride claudia surement (moles/volume)Ordered By: Yevgeniy Cabrera on 04-28-2022 Chloride [Moles/Vol] 105 mmol/L 95-114 [facility] Serum or plasma glucose donaldo urement (mass/volume)Ordered By: Yevgeniy Cabrera on 04-28-2022 Glucose [Mass/Vol] 112 mg/dL 70-100 [facility] Comment on above: ADA recommended refe rence rangeRandom Glucose Reference Range is dependent on time and content of last meal. Glucose of more than 200 mg/dL in a nonstressed, ambulatory subject supports the diagnosis of Diabetes Mellitus. Serum or plasma potassium me asurement (moles/volume)Ordered By: Yevgeniy Cabrera on 04-28-2022 Potassium [Moles/Vol] 3.7 mmol/L 3.5-5.1 [facility] Serum or plasma sodium measu rement (moles/volume)Ordered By: Yevgeniy Cabrera on 04-28-2022 Sodium [Moles/Vol] 137 mmol/L 136-146 [facility] Serum or plasma total biliru bin measurement (mass/volume)Ordered By: Yevgeniy Cabrera on 04-28-2022 Bilirubin [Mass/Vol] 0.5 mg/dL 0.3-1.2 [facility] Serum or plasma total carbon dioxide measurement (moles/volume)Ordered By: Yevgeniy Cabrera on 04-28-2022 CO2 [Moles/Vol] 21.1 mmol/L 22.0-30.0 [facility] Serum or plasma urea nitroge n measurement (mass/volume)Ordered By: Yevgeniy Cabrera on 04-28-2022 Urea nitrogen [Mass/Vol] 5 mg/dL 03-05 [facility] Specific gravity Auto test s trip (U) [Rel density]Ordered By: Yevgeniy Cabrera on 04-28-2022 Specific gravity (U) [Rel density] 1.005 1.001-1.030 [facility] Squamous epithelial cells de tection in urine sediment by light microscopyOrdered By: Yevgeniy Cabrera on 04-28-2022 Epithelial cells.squamous LM Ql (Urine sed) 0-1 [HPF] 0-2 [facility] Teardrop cell detectionOrder ed By: Yevgeniy Cabrera on 04-28-2022 Dacrocytes LM Ql (Bld) Slight [facility] Urine bacteria detection by automated methodOrdered By: Yevgeniy Cabrera on 04-28-2022 Bacteria Auto Ql (U) None seen None Seen [facility] Urine clarity by refractomet ry automatedOrdered By: Yevgeniy Cabrera on 04-28-2022 Clarity Refractometry automated (U) Cloudy Clear [facility] Urine glucose measurement by automated test strip (mass/volume)Ordered By: Yevgeniy Cabrera on 04-28-2022 Glucose Auto test strip (U) [Mass/Vol] Normal mg/dL Normal [facility] Urine hemoglobin detection b y automated test stripOrdered By: Yevgeniy Cabrera on 04-28-2022 Hemoglobin Auto test strip Ql (U) Negative Negative [facility] Urine leukocyte esterase det ection by automated test stripOrdered By: Yevgeniy Cabrera on 04-28-2022 Leukocyte esterase Auto test strip Ql (U) 1+ Negative [facility] Urobilinogen Auto test strip (U) [Mass/Vol]Ordered By: Yevgeniy Cabrera on 04-28-2022 Urobilinogen (U) [Mass/Vol] Normal mg/dL Normal [facility] pH Auto test strip (U)Ordere d By: Yevgeniy Cabrera on 04-28-2022 pH (U) 6.5 [pH] 5.0-9.0 [facility] ALLIED HEALTHon 04-09-2022 ALLIED HEALTH HNO ID: [id number] Author: Stephenie Suh, 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 Service: ? [...] 2022 TIME: 2:21 PM PAGER/CONTACT [facility] C[facility]N Tele[facility] (NCCAP) ANTONIA NOYOLA ([id number]) 1985 F Date Time Provider Department 03/19/22 [...] Date Reviewed: 03/10/2022 Reviewed by: Madyson Ni APRN.[facility] - Fully Assessed Reason for Visit: [...] Encounter Status:Closed by CORBIN MANE on [facility]/19/22 [facility] ([id number]) 1985 F Date Time Provider Department 03/19/22 [employer] JOHNY [employer] During your visit today, we recorded the following information about you: [facility]le [facility] 03/19/2022 4:48 PM Signed 1st report of treatment-Non oncology regimen (Venofer) No FA available for this treatment at this time. 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 Reason for Visit: Benefits [...] of iron [K90.9] 10/27/2020 Encounter Status:Closed by [facility] SPARKLE JACOBSEN on 03/19/22 [facility]TON[facility] NOYOLA ([id number]) 1985 F Date Time Provider Department 03/15/22 [...] Date Reviewed: 03/10/2022 Reviewed by: Madyson Ni APRN.[facility] - Fully Assessed Reason for Visit: [...] Status:Closed by SHARON SAAVEDRA on 03/15/22 Normal [facility] CBC W Auto Differential pane l (Bld)on 03-10-2022 Basophils (Bld) [#/Vol] 0.05 10*3/uL Normal <0.11 [facility] Comment on above: Order Comment: Speci men Type: BLOOD SPECIMEN Ordering Facility: [facility] Address: [address] [place] [address] Performed By: #### 5 7021-8 #### [facility] CLIA [id number] [address] [place] [address] Basophils/100 WBC (Bld) 0.8 % Normal [facility] Comment on above: Order Comment: Speci men Type: BLOOD SPECIMEN Ordering Facility: [facility] Address: [address] [place] [address] Performed By: #### 5 7021-8 #### [facility] CLIA [id number] [address] [place] [address] Differential cell count method Nom (Bld) Auto Normal [facility] Comment on above: Order Comment: Speci men Type: BLOOD SPECIMEN Ordering Facility: [facility] Address: [address] [place] [address] Performed By: #### 5 7021-8 #### [facility] CLIA [id number] [address] [place] [address] Eosinophils (Bld) [#/Vol] 0.15 10*3/uL Normal <0.46 [facility] Comment on above: Order Comment: Speci men Type: BLOOD SPECIMEN Ordering Facility: [facility] Address: [address] [place] [address] Performed By: #### 5 7021-8 #### [facility] CLIA [id number] [address] [place] [address] Eosinophils/100 WBC (Bld) 2.3 % Normal [facility] Comment on above: Order Comment: Speci men Type: BLOOD SPECIMEN Ordering Facility: [facility] Address: [address] [address] Performed By: #### 5 7021-8 #### [facility] CLIA [id number] [address] [place] [address] Erythrocyte distribution width (RBC) [Ratio] 17.4 % High 11.5-15.0 [facility] Comment on above: Order Comment: Speci men Type: BLOOD SPECIMEN Ordering Facility: [facility] Address: [address] [place] [address] Performed By: #### 5 7021-8 #### [facility] CLIA [id number] [address] [place] [address] Hematocrit (Bld) [Volume fraction] 29.4 % Low 36.0-46.0 [facility] Comment on above: Order Comment: Speci men Type: BLOOD SPECIMEN Ordering Facility: [facility] Address: [facility] [address] Performed By: #### 5 7021-8 #### [facility] CLIA [id number] [address] [place] [address] 70892 Hemoglobin (Bld) [Mass/Vol] 8.5 g/dL Low 11.5-15.5 [facility] Comment on above: Order Comment: Speci men Type: BLOOD SPECIMEN Ordering Facility: [facility] Address: [address] [place] [address] Performed By: #### 5 7021-8 #### [facility] CLIA [id number] [address] [place] [address] 47782 IMMATURE GRAN % 0.3 % Normal [facility] Comment on above: Order Comment: Speci men Type: BLOOD SPECIMEN Ordering Facility: [facility] Address: [facility] [place] [address] Performed By: #### 5 7021-8 #### [facility] CLIA [id number] [address] [place] [address] IMMATURE GRAN ABS <0.03 Normal <0.10 [facility] Comment on above: Order Comment: Speci men Type: BLOOD SPECIMEN Ordering Facility: [facility] Address: [address] [place], [place] [address] Performed By: #### 5 7021-8 #### [facility] CLIA [id number] [address] [place] [address] 99126 Lymphocytes (Bld) [#/Vol] 3.62 10*3/uL Normal 1.00-4.00 [facility] Comment on above: Order Comment: Speci men Type: BLOOD SPECIMEN Ordering Facility: [facility] Address: [address] [place], [place] [address] Performed By: #### 5 7021-8 #### [facility] CLIA [id number] [address] [place] [address] 23447 Lymphocytes/100 WBC (Bld) 54.8 % Normal [facility] Comment on above: Order Comment: Speci men Type: BLOOD SPECIMEN Ordering Facility: [facility] Address: [address] [place] [address] Performed By: #### 5 7021-8 #### [facility] CLIA [id number] [address] [place] [address] 19467 MCH (RBC) [Entitic mass] 20.3 pg Low 26.0-34.0 [facility] Comment on above: Order Comment: Speci men Type: BLOOD SPECIMEN Ordering Facility: [facility] Address: [address] [place], [place] [address] Performed By: #### 5 7021-8 #### [facility] CLIA [id number] [address] [place] [address] 10441 MCHC (RBC) [Mass/Vol] 28.9 g/dL Low 30.5-36.0 [facility] Comment on above: Order Comment: Speci men Type: BLOOD SPECIMEN Ordering Facility: [facility] Address: [address] [place], [place] [address] Performed By: #### 5 7021-8 #### [facility] CLIA [id number] [address] [place] [address] 42189 MCV (RBC) [Entitic vol] 70.3 fL Low 80.0-100.0 C [facility] Comment on above: Order Comment: Speci men Type: BLOOD SPECIMEN Ordering Facility: [facility] Address: [address] [place] [address] Performed By: #### 5 7021-8 #### [facility] CLIA [id number] [address] [place] [address] 54537 Monocytes (Bld) [#/Vol] 0.38 10*3/uL Normal <0.87 [facility] Comment on above: Order Comment: Speci men Type: BLOOD SPECIMEN Ordering Facility: [facility] Address: [address] [place] [address] Performed By: #### 5 7021-8 #### [facility] CLIA [id number] [address] [place] [address] 17937 Monocytes/100 WBC (Bld) 5.7 % Normal C [facility] Comment on above: Order Comment: Speci men Type: BLOOD SPECIMEN Ordering Facility: [facility] Address: [address] [place] [address] Performed By: #### 5 7021-8 #### [facility] CLIA [id number] [address] [place] [address] 31797 Neutrophils (Bld) [#/Vol] 2.39 10*3/uL Normal 1.45-7.50 [facility] Comment on above: Order Comment: Speci men Type: BLOOD SPECIMEN Ordering Facility: [facility] Address: [address] [place] [address] Performed By: #### 5 7021-8 #### [facility] CLIA [id number] [address] [place] [address] 89331 Neutrophils/100 WBC (Bld) 36.1 % Normal [facility] Comment on above: Order Comment: Speci men Type: BLOOD SPECIMEN Ordering Facility: [facility] Address: [address] [place], [place] [address] Performed By: #### 5 7021-8 #### [facility] CLIA [id number] [address] [place] [address] 44035 Nucleated RBC (Bld) [#/Vol] 10*3/uL Normal <0.01 [facility] Comment on above: Order Comment: Speci men Type: BLOOD SPECIMEN Ordering Facility: [facility] Address: [address] [place] [address] Performed By: #### 5 7021-8 #### [facility] CLIA [id number] [address] [place] [address] 10614 Nucleated RBC/100 WBC (Bld) [Ratio] 0.0 /100 WBC Normal [facility] Comment on above: Order Comment: Speci men Type: BLOOD SPECIMEN Ordering Facility: [facility] Address: [address] [place] [address] Performed By: #### 5 7021-8 #### [facility] CLIA [id number] [address] [place] [address] 74416 Platelet mean volume (Bld) [Entitic vol] 8.8 fL Low 9.0-12.7 [facility] Comment on above: Order Comment: Speci men Type: BLOOD SPECIMEN Ordering Facility: [facility] Address: [address] [place] [address] Performed By: #### 5 7021-8 #### [facility] CLIA [id number] [address] [place] [address] 58343 Platelets (Bld) [#/Vol] 419 10*3/uL High 150-400 [facility] Comment on above: Order Comment: Speci men Type: BLOOD SPECIMEN Ordering Facility: [facility] Address: [address] [place] [address] Performed By: #### 5 7021-8 #### [facility] CLIA [id number] [address] [place] [address] 01791 RBC (Bld) [#/Vol] 4.18 10*6/uL Normal 3.90-5.20 [facility] Comment on above: Order Comment: Speci men Type: BLOOD SPECIMEN Ordering Facility: [facility] Address: [address] [place], [place] [id number] Performed By: #### 5 7021-8 #### [facility] CLIA [id number] [address] [place] [address] 25597 WBC (Bld) [#/Vol] 6.61 10*3/uL Normal 3.70-11.00 [facility] Comment on above: Order Comment: Speci men Type: BLOOD SPECIMEN Ordering Facility: [facility] Address: [address] [place] [address] Performed By: #### 5 7021-8 #### [facility] CLIA [id number] [address] [place] [address] 72947 CNOVSPon 03-10-2022 CNOVSP Visit (SP) Office ([place]) ANTONIA NOYOLA ([id number]) 1985 F Date Time Provider Department 03/10/22 2:00 PM MADYSON NI During your visit today, we recorded the following information about you: Temperature Pulse Respiration Blood pressure 97.9 degrees 95/minute 16/minute 130/75 Weight Height 83.4 kg 1.651 m Madyson Ni APRN.CNP 03/10/2022 2:25 PM Signed NAME: Antonia Noyola NO.: [id number] DATE OF SERVICE: March 10, 2022 (Elements [...] 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 Recent laboratories from [facility] October 04, 2020 [...] to chronic (more content not included)... Normal [facility] Comprehensive metabolic 2000 panelon 03-10-2022 Albumin [Mass/Vol] 4.0 g/dL Normal 3.9-4.9 [facility] Comment on above: Order Comment: Speci men Type: BLOOD SPECIMEN Ordering Facility: [facility] Address: [address] [place] [address] Performed By: #### 2 4323-8 #### [facility] CLIA [id number] [address] [place] [address] ALP [Catalytic activity/Vol] 55 U/L Normal 34-123 [facility] Comment on above: Order Comment: Speci men Type: BLOOD SPECIMEN Ordering Facility: [facility] Address: [address] [place] [address] Performed By: #### 2 4323-8 #### [facility] CLIA [id number] [address] [place] [address] 88693 ALT [Catalytic activity/Vol] 12 U/L Normal 7-38 [facility] Comment on above: Order Comment: Speci men Type: BLOOD SPECIMEN Ordering Facility: [facility] Address: [address] [place] [address] Performed By: #### 2 432-8 #### [facility] CLIA [id number] [address] [place] [address] 12870 Anion gap [Moles/Vol] 9 mmol/L Normal 9-18 [facility] Comment on above: Order Comment: Speci men Type: BLOOD SPECIMEN Ordering Facility: [facility] Address: [address] [place] [address] Performed By: #### 2 4323-8 #### [facility] CLIA [id number] [address] [place] [address] 83781 AST [Catalytic activity/Vol] 14 U/L Normal 13-35 [facility] Comment on above: Order Comment: Speci men Type: BLOOD SPECIMEN Ordering Facility: [facility] Address: [address] [place] [address] Performed By: #### 2 4323-8 #### [facility] CLIA [id number] [address] [place] [address] 18156 Bilirubin [Mass/Vol] 0.3 mg/dL Normal 0.2-1.3 [facility] Comment on above: Order Comment: Speci men Type: BLOOD SPECIMEN Ordering Facility: [facility] Address: [address] Performed By: #### 2 4323-8 #### [facility] CLIA [id number] [address] [place] [address] Calcium [Mass/Vol] 8.8 mg/dL Normal 8.5-10.2 [facility] Comment on above: Order Comment: Speci men Type: BLOOD SPECIMEN Ordering Facility: [facility] Address: [address] [place] [address] Performed By: #### 2 4323-8 #### [facility] CLIA [id number] [address] [place] [address] 25675 Chloride [Moles/Vol] 105 mmol/L Normal 97-105 [facility] Comment on above: Order Comment: Speci men Type: BLOOD SPECIMEN Ordering Facility: [facility] Address: [address] [place], [place] [address] Performed By: #### 2 4323-8 #### [facility] CLIA [id number] [address] [place] [address] 19592 CO2 [Moles/Vol] 24 mmol/L Normal 22-30 [facility] Comment on above: Order Comment: Speci men Type: BLOOD SPECIMEN Ordering Facility: [facility] Address: [address] Performed By: #### 2 4323-8 #### [facility] CLIA [id number] [address] [place] [address] Creatinine [Mass/Vol] 0.65 mg/dL Normal 0.58-0.96 [facility] Comment on above: Order Comment: Speci men Type: BLOOD SPECIMEN Ordering Facility: [facility] Address: [address] Performed By: #### 2 4323-8 #### [facility] CLIA [id number] [address] [place] [address] 82062 ESTIMATED GLOMERULAR FILTRATION RATE 118 mL/min/1.73m??? Normal >=60 [facility] Comment on above: Order Comment: Rsoelyn conway Type: BLOOD SPECIMEN Ordering Facility: [facility] Address: [address] [place], [place] [id number] Result Comment: Shelley mated Glomerular Filtration Rate [...] GFR. Performed By: #### 2 4323-8 #### [facility] CLIA [id number] [address] [place] [address] 94498 Glucose [Mass/Vol] 109 mg/dL High 74-99 [facility] Comment on above: Order Comment: Roselyn conway Type: BLOOD SPECIMEN Ordering Facility: [facility] Address: [address] [place] [address] Result Comment: The [place] [employer] (ADA) provides guidance for cutoff [...] Standards of Medical Care in Diabetes 2016, [place] [employer]. Diabetes Care. 2016.39(Suppl 1). Performed By: #### 2 4323-8 #### [facility] CLIA [id number] [address] [place] [address] 03696 Potassium [Moles/Vol] 3.4 mmol/L Low 3.7-5.1 [facility] Comment on above: Order Comment: Speci men Type: BLOOD SPECIMEN Ordering Facility: [facility] Address: [address] [place] [address] Performed By: #### 2 4323-8 #### [facility] CLIA [id number] [address] [place] [address] Protein [Mass/Vol] 6.5 g/dL Normal 6.3-8.0 [facility] Comment on above: Order Comment: Speci men Type: BLOOD SPECIMEN Ordering Facility: [facility] Address: [address] [place] [address] Performed By: #### 2 4323-8 #### [facility] CLIA [id number] [address] [place] [address] 94385 Sodium [Moles/Vol] 138 mmol/L Normal 136-144 [facility] Comment on above: Order Comment: Speci men Type: BLOOD SPECIMEN Ordering Facility: [facility] Address: [address] [place] [address] Performed By: #### 2 4323-8 #### [facility] CLIA [id number] [address] [place] [address] 55382 Urea nitrogen [Mass/Vol] 8 mg/dL Normal 7-21 [facility] Comment on above: Order Comment: Speci men Type: BLOOD SPECIMEN Ordering Facility: [facility] Address: [address] [place] [address] Performed By: #### 2 4323-8 #### [facility] CLIA [id number] [address] [place] [address] 97299 Ferritin SerPl-ncon 2021 Ferritin [Mass/Vol] 5.4 ng/mL Low 14.7-205.1 [facility] Comment on above: Order Comment: Speci men Type: BLOOD SPECIMEN Ordering Facility: [facility] Address: [address] [place] [address] Performed By: #### 5 0190-8, 2132-9, 2284-8, 6-4 #### [facility] CLIA [id number] [address] [place] [address] [place] Folate SerPl-mCncon 03-10-20 Folate [Mass/Vol] 8.7 ng/mL Normal >4.7 [facility] Comment on above: Order Comment: Speci men Type: BLOOD SPECIMEN Ordering Facility: [facility] Address: [address] [place] [address] Performed By: #### 5 0190-8, 2-9, 2283-8, 6-4 #### [facility] CLIA [id number] [address] [place] [address] [place] Iron and Iron binding capaci ty panelon 03-10-2022 Iron [Mass/Vol] 17 ug/dL Low 41-186 [facility] Comment on above: Order Comment: Speci men Type: BLOOD SPECIMEN Ordering Facility: [facility] Address: [address] [place] [address] Performed By: #### 5 0190-8, 2-9, 2283-8, 6-4 #### [facility] CLIA [id number] [address] [place] [address] [place] Iron binding capacity [Mass/Vol] 422 ug/dL High 232-386 [facility] Comment on above: Order Comment: Speci men Type: BLOOD SPECIMEN Ordering Facility: [facility] Address: [address] [place], [place] [address] Performed By: #### 5 0190-8, 2-9, 2283-8, 6-4 #### [facility] CLIA [id number] [address] [place] [address] [place] Iron/TIBC [Molar ratio] 4.0 % Low 15.0-57.0 C [facility] Comment on above: Order Comment: Speci men Type: BLOOD SPECIMEN Ordering Facility: [facility] Address: [address] [place], [place] [id number] Performed By: #### 5 0190-8, 2131-9, 4-8, 6-4 #### [facility] CLIA [id number] [address] [place] [address] [place] [facility] 022 Cobalamin (Vitamin B12) [Mass/Vol] 367 pg/mL Normal 232-1245 [facility] Comment on above: Order Comment: Speci men Type: BLOOD SPECIMEN Ordering Facility: [facility] Address: [address] [place], [place] [id number] Performed By: #### 5 0190-8, 2131-9, 2283-8, 6-4 #### [facility] CLIA [id number] [address] [place] [address] OF [place] Andrew 02-18-2022 CNPN Telephone ([place]AS[place]) ANTONIA NOYOLA ([id number]) 1985 F Date Time Provider Department 02/18/22 [...] [D50.0] Order(s):CBC + DIFF [SQCBCDIF] Order #: [id number] FUTURE COMP METABOLIC PANEL [SQCMP] Order #: [id number] FUTURE IRON + TIBC [SQIRON] Order #: [id number] FUTURE FERRITIN BLD [SQFERR] Order #: [id number] FUTURE VITAMIN B12 BLOOD [SQB12] Order #: [id number] FUTURE FOLATE SERUM [SQSERFOL] Order #: [id number] FUTURE Prescriptions as of 02/20/2022 - ALPRAZolam [...] Status:Closed by GINO REID on 02/20/22 Normal [facility] Basophils Auto (Bld) [#/Vol] Ordered By: Jennifer Duran on 02-12-2022 Basophils (Bld) [#/Vol] 0.1 10*3/uL 0.0-0.2 [facility] Basophils/100 WBC Auto (Bld) Ordered By: Jennifer Duran on 02-12-2022 Basophils/100 WBC (Bld) 1.0 % . F [facility] Blood anisocytosis detection Ordered By: Jennifer Duran on 02-12-2022 Anisocytosis Ql (Bld) Moderate [facility] Blood hemoglobin measurement (mass/volume)Ordered By: Jennifer Duran on 02-12-2022 Hemoglobin (Bld) [Mass/Vol] 8.5 g/dL 11.8-15.4 [facility] Blood leukocytes automated c ount (number/volume)Ordered By: Jennifer Duran on 02-12-2022 WBC (Bld) [#/Vol] 5.9 10*3/uL 4.5-11.0 [facility] Body fluid albumin measureme nt (mass/volume)Ordered By: Jennifer Duran on 02-12-2022 Albumin (Body fld) [Mass/Vol] 3.7 g/dL 3.2-5.[address] [facility] [address] biopsyOrdered By: Jennifer avila on 02-12-2022 Transferrin [Mass/Vol] 356 mg/dL 180-380 [facility] Creatinine and Glomerular fi ltration rate.predicted panel (S/P/Bld)Ordered By: Jennifer Duran on 02-12-2022 Creatinine [Mass/Vol] 0.72 mg/dL 0.44-1.03 [facility] Eosinophils Auto (Bld) [#/Vo l]Ordered By: Jennifer Duran on 02-12-2022 Eosinophils (Bld) [#/Vol] 0.1 10*3/uL 0.0-0.45 [facility] Eosinophils/100 WBC Auto (Bl d)Ordered By: Jennifer Duran on 02-12-2022 Eosinophils/100 WBC (Bld) 2.2 % . [facility] Erythrocyte distribution wid th Auto (RBC) [Ratio]Ordered By: Jennifer Duran on 02-12-2022 Erythrocyte distribution width (RBC) [Ratio] 17.3 % 11.9-15.3 [facility] Estimated glomerular filtrat ion rate (GFR) non- AmericanOrdered By: Jennifer Duran on 02-12-2022 GFR/1.73 sq M.predicted among non-blacks MDRD (S/P/Bld) [Vol rate/Area] > 60 mL/Min [facility] Ferritin [Mass/volume] in Se rum or PlasmaOrdered By: Jennifer Duran on 02-12-2022 Ferritin [Mass/Vol] 5.1 ng/mL 11-306.8 [facility] Globulin Calc (S) [Mass/Vol] Ordered By: Jennifer Duarn on 02-12-2022 Globulin (S) [Mass/Vol] 2.9 g/dL [facility] Hematocrit Auto (Bld) [Volum e fraction]Ordered By: Jennifer Duran on 02-12-2022 Hematocrit (Bld) [Volume fraction] 27.9 % 34.0-46.4 [facility] Hypochromia detectionOrdered By: Jennifer Duran on 02-12-2022 Hypochromia Ql (Bld) Slight [facility] Iron [Mass/volume] in Serum or PlasmaOrdered By: Jennifer Duran on 02-12-2022 Iron [Mass/Vol] 11 ug/dL 40-150 [facility] Iron binding capacity [Mass/ volume] in Serum or PlasmaOrdered By: Jennifer Duran on 02-12-2022 Iron binding capacity [Mass/Vol] 498 ug/dL 255-450 [facility] Iron saturation [Mass Fracti on] in Serum or PlasmaOrdered By: Jennifer Duran on 02-12-2022 Iron saturation [Mass fraction] 2.0 % 20-50 [facility] - Hematology and Cell countsOrdered By: Jennifer Duran on 02-12-2022 Nucleated RBC/100 WBC (Bld) [Ratio] 0.3 % 0-0.5 [facility] Lymphocytes Auto (Bld) [#/Vo l]Ordered By: Jennifer Duran on 02-12-2022 Lymphocytes (Bld) [#/Vol] 3.0 10*3/uL 1.00-4.8 [facility] Lymphocytes/100 WBC Auto (Bl d)Ordered By: Jennifer Duran on 02-12-2022 Lymphocytes/100 WBC (Bld) 50.8 % . [facility] MCH Auto (RBC) [Entitic mass ]Ordered By: Jennifer Duran on 02-12-2022 MCH (RBC) [Entitic mass] 20.1 pg 24.7-34.3 [facility] MCHC Auto (RBC) [Mass/Vol]Or dered By: Jennifer Duran on 02-12-2022 MCHC (RBC) [Mass/Vol] 30.4 g/dL 32.0-35.0 [facility] MCV Auto (RBC) [Entitic vol] Ordered By: Jennifer Duran on 02-12-2022 MCV (RBC) [Entitic vol] 66.3 fL 80-100 [facility] Monocytes Auto (Bld) [#/Vol] Ordered By: Jennifer Duran on 02-12-2022 Monocytes (Bld) [#/Vol] 0.3 10*3/uL 0.0-0.8 [facility] Monocytes/100 WBC Auto (Bld) Ordered By: Jennifer Duran on 02-12-2022 Monocytes/100 WBC (Bld) 5.7 % . F [facility] Neutrophils Auto (Bld) [#/Vo l]Ordered By: Jennifer Duran on 02-12-2022 Neutrophils (Bld) [#/Vol] 2.4 10*3/uL 1.8-7.7 [facility] Neutrophils/100 WBC Auto (Bl d)Ordered By: Jennifer Duran on 02-12-2022 Neutrophils/100 WBC (Bld) 40.3 % . [facility] No Panel InformationOrdered By: Jennifer Duran on 02-12-2022 Estimated GFR () > 60 mL/Min [facility] Comment on above: GFR estimated refere nce range: According to KDOQI guidelines, <60 ml/min/1.73m2 is sufficient to diagnose a patient with chronic kidney disease. Microcytosis Moderate [facility] Creatinine Clearance (Chem N/A [facility] Platelet Estimate Normal Normal [facility] Platelet Morphology Comment Normal Normal [facility] Platelet mean volume Auto (B ld) [Entitic vol]Ordered By: Jennifer Duran on 02-12-2022 Platelet mean volume (Bld) [Entitic vol] 8.1 fL 6.3-10.7 [facility] Platelets Auto (Bld) [#/Vol] Ordered By: Jennifer Duran on 02-12-2022 Platelets (Bld) [#/Vol] 459 10*3/uL 150-450 [facility] Protein [Mass/volume] in Ser um or PlasmaOrdered By: Jennifer Duran on 02-12-2022 Protein [Mass/Vol] 6.6 g/dL 6.1-7.9 [facility] RBC Auto (Bld) [#/Vol]Ordere d By: Jennifer Duran on 02-12-2022 RBC (Bld) [#/Vol] 4.20 10*6/uL 3.60-5.00 [facility] RBC morphologyOrdered By: Pool kelle Wilber on 02-12-2022 RBC morphology finding Nom (Bld) N/A [facility] Serum or plasma alanine syed otransferase measurement without P-5'-P (enzymatic activiOrdered By: Jennifer Duran on 02-12-2022 ALT No additional P-5'-P [Catalytic activity/Vol] 69 U/L 10-60 [facility] Serum or plasma albumin/glob ulin mass ratioOrdered By: Jennifer Duran on 02-12-2022 Albumin/Globulin [Mass ratio] 1.3 {ratio} [facility] Serum or plasma alkaline zeeshan sphatase measurement (enzymatic activity/volume)Ordered By: Jennifer Duran on 02-12-2022 ALP [Catalytic activity/Vol] 73 U/L 32-92 [facility] Serum or plasma anion gap de terminationOrdered By: Jennifer Duran on 02-12-2022 Anion gap [Moles/Vol] 13.2 mmol/L 6.0-15.0 [facility] Serum or plasma aspartate am inotransferase measurement (enzymatic activity/volume)Ordered By: Jennifer Duran on 02-12-2022 AST [Catalytic activity/Vol] 42 U/L 10-42 [facility] Serum or plasma calcium donaldo urement (mass/volume)Ordered By: Jennifer Duran on 02-12-2022 Calcium [Mass/Vol] 9.3 mg/dL 8.2-10.2 [facility] Serum or plasma chloride claudia surement (moles/volume)Ordered By: Jennifer Duran on 02-12-2022 Chloride [Moles/Vol] 101 mmol/L 95-114 [facility] Serum or plasma glucose donaldo urement (mass/volume)Ordered By: Jennifer Duran on 02-12-2022 Glucose [Mass/Vol] 98 mg/dL 70-100 [facility] Comment on above: ADA recommended [...] on 02-12-2022 Potassium [Moles/Vol] 3.6 mmol/L 3.5-5.1 [facility] Serum or plasma sodium measu rement (moles/volume)Ordered By: Jennifer Duran on 02-12-2022 Sodium [Moles/Vol] 136 mmol/L 136-146 [facility] Serum or plasma total biliru bin measurement (mass/volume)Ordered By: Jennifer Duran on 02-12-2022 Bilirubin [Mass/Vol] 0.4 mg/dL 0.3-1.2 [facility] Serum or plasma total carbon dioxide measurement (moles/volume)Ordered By: Jennifer Duran on 02-12-2022 CO2 [Moles/Vol] 25.4 mmol/L 22.0-30.0 [facility] Serum or plasma urea nitroge n measurement (mass/volume)Ordered By: Jennifer Duran on 02-12-2022 Urea nitrogen [Mass/Vol] 4 mg/dL 9-23 [facility] Basophils Auto (Bld) [#/Vol] Ordered By: Kendra Persaud on 09-14-2021 Basophils (Bld) [#/Vol] 0.1 10*3/uL 0.0-0.2 [facility] Basophils/100 WBC Auto (Bld) Ordered By: Kendra Persaud on 09-14-2021 Basophils/100 WBC (Bld) 1.3 % [facility] Bilirubin Test strip Ql (U)O rdered By: Kendra Persaud on 09-14-2021 Bilirubin Ql (U) Negative Negative [facility] Blood hemoglobin measurement (mass/volume)Ordered By: Kendra Persaud on 09-14-2021 Hemoglobin (Bld) [Mass/Vol] 9.7 g/dL 11.8-15.4 [facility] Blood leukocytes automated c ount (number/volume)Ordered By: Kendra Persaud on 09-14-2021 WBC (Bld) [#/Vol] 8.9 10*3/uL 4.5-11.0 [facility] Body fluid albumin measureme nt (mass/volume)Ordered By: Kendra Persaud on 09-14-2021 Albumin (Body fld) [Mass/Vol] 3.7 g/dL 3.2-5.5 [facility] Color Auto (U)Ordered By: Jazmin Persaud on 09-14-2021 Color (U) Yellow Yellow [facility] Creatinine and Glomerular fi ltration rate.predicted panel (S/P/Bld)Ordered By: Kendra Persaud on 09-14-2021 Creatinine [Mass/Vol] 0.71 mg/dL 0.44-1.03 [facility] Eosinophils Auto (Bld) [#/Vo l]Ordered By: Kendra Persaud on 09-14-2021 Eosinophils (Bld) [#/Vol] 0.0 10*3/uL 0.0-0.45 [facility] Eosinophils/100 WBC Auto (Bl d)Ordered By: Kendra Persaud on 09-14-2021 Eosinophils/100 WBC (Bld) 0.4 % [facility] Erythrocyte distribution wid th Auto (RBC) [Ratio]Ordered By: Kendra Persaud on 09-14-2021 Erythrocyte distribution width (RBC) [Ratio] 17.0 % 11.9-15.3 [facility] Estimated glomerular filtrat ion rate (GFR) non- AmericanOrdered By: Kendra Persaud on 09-14-2021 GFR/1.73 sq M.predicted among non-blacks MDRD (S/P/Bld) [Vol rate/Area] > 60 mL/Min [facility] Globulin Calc (S) [Mass/Vol] Ordered By: Kendra Persaud on 09-14-2021 Globulin (S) [Mass/Vol] 3.2 g/dL [facility] HCG ( test) IA.rapi d Ql (U)Ordered By: Kendra Persaud on 09-14-2021 HCG ( test) Ql (U) Negative [facility] Hematocrit Auto (Bld) [Volum e fraction]Ordered By: Kendra Persaud on 09-14-2021 Hematocrit (Bld) [Volume fraction] 31.9 % 34.0-46.4 [facility] Ketones Auto test strip (U) [Mass/Vol]Ordered By: Kendra Persaud on 09-14-2021 Ketones (U) [Mass/Vol] Negative Negative Fi [facility] - Chemistry and C hemistry - challengeOrdered By: Kendra Persaud on 09-14-2021 Lipase [Catalytic activity/Vol] 36.0 U/L 22-51 [facility] - Hematology and Cell countsOrdered By: Kendra Persaud on 09-14-2021 Nucleated RBC/100 WBC (Bld) [Ratio] 0.0 % 0-0.5 [facility] Lymphocytes Auto (Bld) [#/Vo l]Ordered By: Kendra Persaud on 09-14-2021 Lymphocytes (Bld) [#/Vol] 4.1 10*3/uL 1.00-4.8 [facility] Lymphocytes/100 WBC Auto (Bl d)Ordered By: Kendra Persaud on 09-14-2021 Lymphocytes/100 WBC (Bld) 45.7 % [facility] MCH Auto (RBC) [Entitic mass ]Ordered By: Kendra Persaud on 09-14-2021 MCH (RBC) [Entitic mass] 21.3 pg 24.7-34.3 [facility] MCHC Auto (RBC) [Mass/Vol]Or dered By: Kendra Persaud on 09-14-2021 MCHC (RBC) [Mass/Vol] 30.4 g/dL 32.0-35.0 [facility] MCV Auto (RBC) [Entitic vol] Ordered By: Kendra Persaud on 09-14-2021 MCV (RBC) [Entitic vol] 70.0 fL 80-100 [facility] Monocytes Auto (Bld) [#/Vol] Ordered By: Kendra Persaud on 09-14-2021 Monocytes (Bld) [#/Vol] 0.7 10*3/uL 0.0-0.8 [facility] Monocytes/100 WBC Auto (Bld) Ordered By: Kendra Persaud on 09-14-2021 Monocytes/100 WBC (Bld) 7.8 % [facility] Neutrophils Auto (Bld) [#/Vo l]Ordered By: Kendra Persaud on 09-14-2021 Neutrophils (Bld) [#/Vol] 4.0 10*3/uL 1.8-7.7 [facility] Neutrophils/100 WBC Auto (Bl d)Ordered By: Kendra Persaud on 09-14-2021 Neutrophils/100 WBC (Bld) 44.8 % [facility] Nitrite Test strip Ql (U)Ord ered By: Kendra Persaud on 09-14-2021 Nitrite Ql (U) Negative Negative [facility] No Panel InformationOrdered By: Kendra Persaud on 09-14-2021 Estimated GFR () > 60 mL/Min [facility] Comment on above: GFR estimated refere nce range: According to KDOQI guidelines, <60 ml/min/1.73m2 is sufficient to diagnose a patient with chronic kidney disease. Pharmacy Creatinine Clearance (Chem 119.44 [facility] Platelet mean volume Auto (B ld) [Entitic vol]Ordered By: Kendra Persaud on 09-14-2021 Platelet mean volume (Bld) [Entitic vol] 7.4 fL 6.3-10.7 [facility] Platelets Auto (Bld) [#/Vol] Ordered By: Kendra Persaud on 09-14-2021 Platelets (Bld) [#/Vol] 604 10*3/uL 150-450 [facility] Protein Auto test strip (U) [Mass/Vol]Ordered By: Kendra Persaud on 09-14-2021 Protein (U) [Mass/Vol] Negative Negative [facility] Protein [Mass/volume] in Ser um or PlasmaOrdered By: Kendra Persaud on 09-14-2021 Protein [Mass/Vol] 6.9 g/dL 6.1-7.9 [facility] RBC Auto (Bld) [#/Vol]Ordere d By: Kendra Persaud on 09-14-2021 RBC (Bld) [#/Vol] 4.55 10*6/uL 3.60-5.00 [facility] Serum or plasma alanine syed otransferase measurement without P-5'-P (enzymatic activiOrdered By: Kendra Persaud on 09-14-2021 ALT No additional P-5'-P [Catalytic activity/Vol] 16 U/L 10-60 [facility] Serum or plasma albumin/glob ulin mass ratioOrdered By: Kendra Persaud on 09-14-2021 Albumin/Globulin [Mass ratio] 1.2 {ratio} [facility] Serum or plasma alkaline zeeshan sphatase measurement (enzymatic activity/volume)Ordered By: Kendra Persaud on 09-14-2021 ALP [Catalytic activity/Vol] 48 U/L 32-92 [facility] Serum or plasma aspartate am inotransferase measurement (enzymatic activity/volume)Ordered By: Kendra Persaud on 09-14-2021 AST [Catalytic activity/Vol] 17 U/L 10-42 [facility] Serum or plasma calcium donaldo urement (mass/volume)Ordered By: Kendra Persaud on 09-14-2021 Calcium [Mass/Vol] 9.0 mg/dL 8.2-10.2 [facility] Serum or plasma chloride claudia surement (moles/volume)Ordered By: Kendra Persaud on 09-14-2021 Chloride [Moles/Vol] 105 mmol/L 95-114 [facility] Serum or plasma glucose donaldo urement (mass/volume)Ordered By: Kendra Persaud on 09-14-2021 Glucose [Mass/Vol] 94 mg/dL 70-100 [facility] Comment on above: ADA recommended refe rence rangeRandom Glucose Reference Range is dependent on time and content of last meal. Glucose of more than 200 mg/dL in a nonstressed, ambulatory subject supports the diagnosis of Diabetes Mellitus. Serum or plasma potassium me asurement (moles/volume)Ordered By: Kendra Persaud on 09-14-2021 Potassium [Moles/Vol] 3.1 mmol/L 3.5-5.1 [facility] Serum or plasma sodium measu rement (moles/volume)Ordered By: Kendra Persaud on 09-14-2021 Sodium [Moles/Vol] 139 mmol/L 136-146 [facility] Serum or plasma total biliru bin measurement (mass/volume)Ordered By: Kendra Persaud on 09-14-2021 Bilirubin [Mass/Vol] 0.5 mg/dL 0.3-1.2 [facility] Serum or plasma total carbon dioxide measurement (moles/volume)Ordered By: Kendra Persaud on 09-14-2021 CO2 [Moles/Vol] 23.7 mmol/L 22.0-30.0 [facility] Serum or plasma urea nitroge n measurement (mass/volume)Ordered By: Kendra Persaud on 09-14-2021 Urea nitrogen [Mass/Vol] 4 mg/dL 9-23 [facility] Specific gravity Auto test s trip (U) [Rel density]Ordered By: Kendra Persaud on 09-14-2021 Specific gravity (U) [Rel density] 1.004 1.001-1.030 [facility] Urine clarity by refractomet ry automatedOrdered By: Kendra Persaud on 09-14-2021 Clarity Refractometry automated (U) Clear Clear [facility] Urine glucose measurement by automated test strip (mass/volume)Ordered By: Kendra Persaud on 09-14-2021 Glucose Auto test strip (U) [Mass/Vol] Normal mg/dL Normal [facility] Urine hemoglobin detection b y automated test stripOrdered By: Kendra Persaud on 09-14-2021 Hemoglobin Auto test strip Ql (U) Negative Negative [facility] Urine leukocyte esterase det ection by automated test stripOrdered By: Kendra Persaud on 09-14-2021 Leukocyte esterase Auto test strip Ql (U) Negative Negative [facility] Urobilinogen Auto test strip (U) [Mass/Vol]Ordered By: Kendra Persaud on 09-14-2021 Urobilinogen (U) [Mass/Vol] Normal mg/dL Normal [facility] pH Auto test strip (U)Ordere d By: Kendra Persaud on 09-14-2021 pH (U) 6.5 [pH] 5.0-9.0 [facility] Basophils Auto (Bld) [#/Vol] Ordered By: Augustus Santiago on 07-04-2021 Basophils (Bld) [#/Vol] 0.1 10*3/uL 0.0-0.2 [facility] Basophils/100 WBC Auto (Bld) Ordered By: Augustus Santiago on 07-04-2021 Basophils/100 WBC (Bld) 0.9 % [facility] Blood hemoglobin measurement (mass/volume)Ordered By: Augustus Santiago on 07-04-2021 Hemoglobin (Bld) [Mass/Vol] 10.2 g/dL 11.8-15.4 [facility] Blood leukocytes automated c ount (number/volume)Ordered By: Augustus Santiago on 07-04-2021 WBC (Bld) [#/Vol] 6.6 10*3/uL 4.5-11.[address] [facility] [address] biopsyOrdered By: Augustus powell on 07-04-2021 Transferrin [Mass/Vol] 360 mg/dL 180-380 [facility] Creatinine and Glomerular fi ltration rate.predicted panel (S/P/Bld)Ordered By: Augustus Snatiago on 07-04-2021 Creatinine [Mass/Vol] 0.69 mg/dL 0.44-1.03 [facility] Eosinophils Auto (Bld) [#/Vo l]Ordered By: Augustus Santiago on 07-04-2021 Eosinophils (Bld) [#/Vol] 0.1 10*3/uL 0.0-0.45 [facility] Eosinophils/100 WBC Auto (Bl d)Ordered By: Augustus Santiago on 07-04-2021 Eosinophils/100 WBC (Bld) 1.2 % [facility] Erythrocyte distribution wid th Auto (RBC) [Ratio]Ordered By: Augustus Santiago on 07-04-2021 Erythrocyte distribution width (RBC) [Ratio] 17.2 % 11.9-15.3 [facility] Estimated glomerular filtrat ion rate (GFR) non- AmericanOrdered By: Augustus Santiago on 07-04-2021 GFR/1.73 sq M.predicted among non-blacks MDRD (S/P/Bld) [Vol rate/Area] > 60 mL/Min [facility] Hematocrit Auto (Bld) [Volum e fraction]Ordered By: Augustus Santiago on 07-04-2021 Hematocrit (Bld) [Volume fraction] 32.0 % 34.0-46.4 [facility] Iron [Mass/volume] in Serum or PlasmaOrdered By: Augustus Santiago on 07-04-2021 Iron [Mass/Vol] 10 ug/dL 40-150 [facility] Iron binding capacity [Mass/ volume] in Serum or PlasmaOrdered By: Augustus Santiago on 07-04-2021 Iron binding capacity [Mass/Vol] 504 ug/dL 255-450 [facility] Iron saturation [Mass Fracti on] in Serum or PlasmaOrdered By: Augustus Santiago on 07-04-2021 Iron saturation [Mass fraction] 1.0 % 20-50 [facility] Laboratory - Hematology and Cell countsOrdered By: Augustus Santiago on 07-04-2021 Nucleated RBC/100 WBC (Bld) [Ratio] 0.0 % 0-0.5 [facility] Lymphocytes Auto (Bld) [#/Vo l]Ordered By: Augustus Santiago on 07-04-2021 Lymphocytes (Bld) [#/Vol] 1.9 10*3/uL 1.00-4.8 [facility] Lymphocytes/100 WBC Auto (Bl d)Ordered By: Augustus Santiago on 07-04-2021 Lymphocytes/100 WBC (Bld) 28.4 % [facility] MCH Auto (RBC) [Entitic mass ]Ordered By: Augustus Santiago on 07-04-2021 MCH (RBC) [Entitic mass] 22.7 pg 24.7-34.3 [facility] MCHC Auto (RBC) [Mass/Vol]Or dered By: Augustus Santiago on 07-04-2021 MCHC (RBC) [Mass/Vol] 31.9 g/dL 32.0-35.0 [facility] MCV Auto (RBC) [Entitic vol] Ordered By: Augustus Santiago on 07-04-2021 MCV (RBC) [Entitic vol] 71.3 fL 80-100 [facility] Monocytes Auto (Bld) [#/Vol] Ordered By: Augustus Santiago on 07-04-2021 Monocytes (Bld) [#/Vol] 0.5 10*3/uL 0.0-0.8 [facility] Monocytes/100 WBC Auto (Bld) Ordered By: Augustus Santiago on 07-04-2021 Monocytes/100 WBC (Bld) 7.6 % [facility] Neutrophils Auto (Bld) [#/Vo l]Ordered By: Augustus Santiago on 07-04-2021 Neutrophils (Bld) [#/Vol] 4.1 10*3/uL 1.8-7.7 [facility] Neutrophils/100 WBC Auto (Bl d)Ordered By: Augustus Santiago on 07-04-2021 Neutrophils/100 WBC (Bld) 61.9 % [facility] No Panel InformationOrdered By: Augustus Santiago on 07-04-2021 D-Dimer Quantitative (PE/DVT) < 200 ng/mL 0-243 [facility] Comment on above: The reference [...] conditions. Estimated GFR () > 60 mL/Min [facility] Comment on above: GFR estimated refere nce range: According to KDOQI guidelines, <60 ml/min/1.73m2 is sufficient to diagnose a patient with chronic kidney disease. Pharmacy Creatinine Clearance (Chem N/A [facility] Platelet mean volume Auto (B ld) [Entitic vol]Ordered By: Augustus Santiago on 07-04-2021 Platelet mean volume (Bld) [Entitic vol] 7.9 fL 6.3-10.7 [facility] Platelets Auto (Bld) [#/Vol] Ordered By: Augustus Santiago on 07-04-2021 Platelets (Bld) [#/Vol] 457 10*3/uL 150-450 [facility] RBC Auto (Bld) [#/Vol]Ordere d By: Augustus Santiago on 07-04-2021 RBC (Bld) [#/Vol] 4.48 10*6/uL 3.60-5.00 [facility] Serum or plasma calcium donaldo urement (mass/volume)Ordered By: Augustus Santiago on 07-04-2021 Calcium [Mass/Vol] 8.9 mg/dL 8.2-10.2 [facility] Serum or plasma chloride claudia surement (moles/volume)Ordered By: Augustus Santiago on 07-04-2021 Chloride [Moles/Vol] 105 mmol/L 95-114 [facility] Serum or plasma glucose donaldo urement (mass/volume)Ordered By: Augustus Santiago on 07-04-2021 Glucose [Mass/Vol] 110 mg/dL 70-100 [facility] Comment on above: ADA recommended refe rence rangeRandom Glucose Reference Range is dependent on time and content of last meal. Glucose of more than 200 mg/dL in a nonstressed, ambulatory subject supports the diagnosis of Diabetes Mellitus. Serum or plasma potassium me asurement (moles/volume)Ordered By: Augustus Santiago on 07-04-2021 Potassium [Moles/Vol] 3.5 mmol/L 3.5-5.1 [facility] Serum or plasma sodium measu rement (moles/volume)Ordered By: Augustus Santiago on 07-04-2021 Sodium [Moles/Vol] 136 mmol/L 136-146 [facility] Serum or plasma total carbon dioxide measurement (moles/volume)Ordered By: Augustus Santiago on 07-04-2021 CO2 [Moles/Vol] 23.0 mmol/L 22.0-30.0 [facility] Serum or plasma urea nitroge n measurement (mass/volume)Ordered By: Augustus Santiago on 07-04-2021 Urea nitrogen [Mass/Vol] 5 mg/dL 9-23 [facility] Cardiac Stress Teston 2020 Cardiac Stress Test [address], Suite [facility], [place] [address] TRANSTHORACIC ECHOCARDIOGRAM REPORT Patient Name: ANTONIA Alfredo Physician: [id number] Raphael Alas MD Study Date: 08/06/2020 Referring Physician: [id number] ANNA CANTU MRN/PID: [id number] PCP: Jennifer Duran Accession/Order#: [id number] Department Location: [facility] Date of : 1985 Fellow: Gender: F Nurse: Admit Date: Gill Box Tender: Josephine Newton RDCS, RVT Height: 165.10 cm CC Report to: Weight: 88.00 kg Study Type: Echocardiogram BSA: 1.95 m2 Diagnosis/ICD: R06.00-Dyspnea, unspecified; R00.0-Tachycardia, unspecified Indication: Obesity, Family History of CAD Procedure/CPT: Echo Complete w Full [id number] Study Detail: The following Echo studies were [...] 0.9 m/s (0.6-0.9m/s) PV Max P.0 mmHg [id number] aRphael Alas MD Electronically signed on 08/07/2020 at 4:26:59 PM Final Normal [facility] Vital Signs Date Time Vital Sign Value Performing Clinician Facility 08-10-2024 22:41-0500 Diastolic blood pressure 82 mm[Hg] Jignesh Dumont [facility] 08-10-2024 22:41-0500 Heart rate 97 /min Jignesh Dumont [facility] 08-10-2024 22:41-0500 Respiratory rate 18 /min Jigneshjeannette Dumont [facility] 08-10-2024 22:41-0500 SaO2% (BldA) [Mass fraction] 98 % Jignesh Dumont [facility] 08-10-2024 22:41-0500 Systolic blood pressure 137 mm[Hg] Jignesh Dumont [facility] 08-10-2024 19:53-0500 Body temperature 98.06 [degF] Jignesh Dumont [facility] 08-10-2024 19:53-0500 Diastolic blood pressure 94 mm[Hg] Jignesh Dumont [facility] 08-10-2024 19:53-0500 Heart rate 126 /min Jignesh Dumont [facility] 08-10-2024 19:53-0500 Respiratory rate 20 /min Jignesh Dumont [facility] 08-10-2024 19:53-0500 SaO2% (BldA) [Mass fraction] 99 % Jignesh Dumont [facility] 08-10-2024 19:53-0500 Systolic blood pressure 147 mm[Hg] Jignesh Dumont [facility] 08-05-2024 18:03-0500 Diastolic blood pressure 80 mm[Hg] Dimitri Vuong [facility] 08-05-2024 18:03-0500 Heart rate 92 /min Dimitri Vuong [facility] 08-05-2024 18:03-0500 Respiratory rate 20 /min Dimitri Vuong [facility] 08-05-2024 18:03-0500 SaO2% (BldA) [Mass fraction] 100 % Dimitri Vuong [facility] 08-05-2024 18:03-0500 Systolic blood pressure 129 mm[Hg] Dimitri Vuong [facility] 08-05-2024 11:12-0500 Body temperature 97.52 [degF] Dimitri Vuong [facility] 08-05-2024 11:12-0500 Diastolic blood pressure 72 mm[Hg] Dimitri Vuong [facility] 08-05-2024 11:12-0500 Heart rate 114 /min Dimtiri Vuong [facility] 08-05-2024 11:12-0500 Respiratory rate 20 /min Dimitri Vuong [facility] 08-05-2024 11:12-0500 SaO2% (BldA) [Mass fraction] 100 % Dimitri Vuong [facility] 08-05-2024 11:12-0500 Systolic blood pressure 134 mm[Hg] Dimitri Vuong [facility] 08-02-2024 18:54-0500 Diastolic blood pressure 84 mm[Hg] [facility] 08-02-2024 18:54-0500 Mean blood pressure 99 mm[Hg] [facility] 08-02-2024 18:54-0500 Respiratory rate 18 /min [facility] 08-02-2024 18:54-0500 SaO2% (BldA) [Mass fraction] 99 % [facility] 08-02-2024 18:54-0500 Systolic blood pressure 129 mm[Hg] [facility] 08-02-2024 18:53-0500 Diastolic blood pressure 84 mm[Hg] [facility] 08-02-2024 18:53-0500 Heart rate 114 /min [facility] 08-02-2024 18:53-0500 Respiratory rate 16 /min [facility] 08-02-2024 18:53-0500 SaO2% (BldA) [Mass fraction] 98 % [facility] 08-02-2024 18:53-0500 Systolic blood pressure 129 mm[Hg] [facility] 08-02-2024 14:44-0500 Body temperature 98.06 [degF] [facility] 08-02-2024 14:44-0500 Diastolic blood pressure 92 mm[Hg] [facility] 08-02-2024 14:44-0500 Heart rate 108 /min [facility] 08-02-2024 14:44-0500 Respiratory rate 18 /min [facility] 08-02-2024 14:44-0500 SaO2% (BldA) [Mass fraction] 100 % [facility] 08-02-2024 14:44-0500 Systolic blood pressure 162 mm[Hg] [facility] 08-01-2024 19:22-0500 Body temperature 99.39 [degF] Konstantin Jain MD Work Phone: [facility] 08-01-2024 19:22-0500 Diastolic blood pressure 83 mm[Hg] Konstantin Jain MD Work Phone: [facility] 08-01-2024 19:22-0500 Heart rate 115 /min Konstantin Jain MD Work Phone: [facility] 08-01-2024 19:22-0500 Respiratory rate 16 /min Konstantin Jain MD Work Phone: [facility] 08-01-2024 19:22-0500 SaO2% (BldA) [Mass fraction] 100 % Konstantin Jain MD Work Phone: [facility] 08-01-2024 19:22-0500 Systolic blood pressure 144 mm[Hg] Konstantin Jain MD Work Phone: [facility] 07-29-2024 19:10-0500 Body height 165.1 cm Rose Hardy MD Work Phone: [facility] 07-29-2024 19:10-0500 Body mass index (BMI) [Ratio] 32.45 kg/m2 Rose Hardy MD Work Phone: [facility] 07-29-2024 19:10-0500 Body temperature 98.29 [degF] Rose Hardy MD Work Phone: [facility] 07-29-2024 19:10-0500 Body weight 88.45 kg Rose Hardy MD Work Phone: [facility] 07-29-2024 19:10-0500 Diastolic blood pressure 101 mm[Hg] Rose Hardy MD Work Phone: [facility] 07-29-2024 19:10-0500 Heart rate 128 /min Rose Hardy MD Work Phone: [facility] 07-29-2024 19:10-0500 Respiratory rate 18 /min Rose Hardy MD Work Phone: [facility] 07-29-2024 19:10-0500 SaO2% (BldA) [Mass fraction] 99 % Rose Hardy MD Work Phone: [facility] 07-29-2024 19:10-0500 Systolic blood pressure 139 mm[Hg] Rose Hardy MD Work Phone: [facility] 07-14-2024 19:20-0500 Diastolic blood pressure 74 mm[Hg] Donya Romano MD Work Phone: [facility] 07-14-2024 19:20-0500 Heart rate 118 /min Donya Romano MD Work Phone: [facility] 07-14-2024 19:20-0500 Respiratory rate 18 /min Donya Romano MD Work Phone: [facility] 07-14-2024 19:20-0500 SaO2% (BldA) [Mass fraction] 100 % Donya Romano MD Work Phone: [facility] 07-14-2024 19:20-0500 Systolic blood pressure 146 mm[Hg] Donya Romano MD Work Phone: [facility] 07-14-2024 18:23-0500 Body temperature 98.8 [degF] Donya Romano MD Work Phone: [facility] 07-11-2024 23:12-0500 Diastolic blood pressure 105 mm[Hg] Shalonda Bacon MD Work Phone: [facility] 07-11-2024 23:12-0500 Heart rate 125 /min Shalonda Bacon MD Work Phone: [facility] 07-11-2024 23:12-0500 Respiratory rate 18 /min Shalonda Bacon MD Work Phone: [facility] 07-11-2024 23:12-0500 Systolic blood pressure 147 mm[Hg] Shalonda Bacon MD Work Phone: [facility] 07-11-2024 22:45-0500 Body temperature 97.3 [degF] Shalonda Bacon MD Work Phone: [facility] 07-11-2024 22:45-0500 SaO2% (BldA) [Mass fraction] 100 % Shalonda Bacon MD Work Phone: [facility] 06-28-2024 01:00-0500 Diastolic blood pressure 134 mm[Hg] Kaylinn Dokken [facility] 06-28-2024 01:00-0500 Heart rate 119 /min Kaylinn Dokken [facility] 06-28-2024 01:00-0500 Mean blood pressure 142 mm[Hg] Kaylinn Dokken [facility] 06-28-2024 01:00-0500 SaO2% (BldA) [Mass fraction] 95 % Kaylinn Dokken [facility] 06-28-2024 01:00-0500 Systolic blood pressure 157 mm[Hg] Kaylinn Dokken [facility] 06-28-2024 00:00-0500 Diastolic blood pressure 98 mm[Hg] Kaylinn Dokken [facility] 06-28-2024 00:00-0500 Heart rate 137 /min Kaylinn Dokken [facility] 06-28-2024 00:00-0500 Mean blood pressure 121 mm[Hg] Kaylinn Dokken [facility] 06-28-2024 00:00-0500 Systolic blood pressure 168 mm[Hg] Kaylinn Dokken [facility] 06-27-2024 22:12-0500 Body temperature 97.34 [degF] Kaylinn Dokken [facility] 06-27-2024 22:12-0500 Diastolic blood pressure 85 mm[Hg] Kaylinn Dokken [facility] 06-27-2024 22:12-0500 Heart rate 125 /min Kaylinn Dokken [facility] 06-27-2024 22:12-0500 Respiratory rate 20 /min Jordyn Willett [facility] 06-27-2024 22:12-0500 SaO2% (BldA) [Mass fraction] 100 % Jordyn Willett [facility] 06-27-2024 22:12-0500 Systolic blood pressure 133 mm[Hg] Jordyn Willett [facility] 06-27-2024 15:15-0500 Diastolic blood pressure 85 mm[Hg] Randee Richardson MD Work Phone: [facility] 06-27-2024 15:15-0500 SaO2% (BldA) [Mass fraction] 97 % Randee Richardson MD Work Phone: [facility] 06-27-2024 15:15-0500 Systolic blood pressure 129 mm[Hg] Randee Richardson MD Work Phone: [facility] 06-27-2024 13:28-0500 Body mass index (BMI) [Ratio] 30.79 kg/m2 Randee Richardson MD Work Phone: [facility] 06-27-2024 13:28-0500 Body temperature 97.7 [degF] Randee Richardson MD Work Phone: [facility] 06-27-2024 13:28-0500 Body weight 83.92 kg Randee Richardson MD Work Phone: [facility] 06-27-2024 13:28-0500 Heart rate 103 /min Randee Richardson MD Work Phone: [facility] 06-27-2024 13:28-0500 Respiratory rate 16 /min Randee Richardson MD Work Phone: [facility] 06-25-2024 01:00-0500 Diastolic blood pressure 90 mm[Hg] Ritesh Ivana [facility] 06-25-2024 01:00-0500 Heart rate 128 /min Ritesh Ivana [facility] 06-25-2024 01:00-0500 Mean blood pressure 105 mm[Hg] Ritesh Ivana [facility] 06-25-2024 01:00-0500 SaO2% (BldA) [Mass fraction] 97 % Ritesh Ivana [facility] 06-25-2024 01:00-0500 Systolic blood pressure 135 mm[Hg] Ritesh Ivana [facility] 06-25-2024 00:30-0500 Diastolic blood pressure 85 mm[Hg] Ritesh Ivana [facility] 06-25-2024 00:30-0500 Heart rate 124 /min Ritesh Ivana [facility] 06-25-2024 00:30-0500 Mean blood pressure 96 mm[Hg] Ritesh Ivana [facility] 06-25-2024 00:30-0500 Respiratory rate 20 /min Ritesh Ivana [facility] 06-25-2024 00:30-0500 SaO2% (BldA) [Mass fraction] 100 % Ritesh Ivana [facility] 06-25-2024 00:30-0500 Systolic blood pressure 118 mm[Hg] Ritesh Ivana [facility] 06-24-2024 23:35-0500 Diastolic blood pressure 97 mm[Hg] Ritesh Ivana [facility] 06-24-2024 23:35-0500 Heart rate 121 /min Ritesh Ivana [facility] 06-24-2024 23:35-0500 Mean blood pressure 110 mm[Hg] Ritesh Ivana [facility] 06-24-2024 23:35-0500 SaO2% (BldA) [Mass fraction] 100 % Ritesh Ivana [facility] 06-24-2024 23:35-0500 Systolic blood pressure 136 mm[Hg] Ritesh Ivana [facility] 06-24-2024 19:30-0500 Body temperature 97.7 [degF] Ritesh Ivana [facility] 06-24-2024 19:30-0500 Heart rate 147 /min Ritesh Ivana [facility] 03-23-2024 12:03-0400 Body mass index (BMI) [Ratio] 32.5 kg/m2 [facility] 03-23-2024 12:03-0400 Body temperature 97.9 [degF] [facility] 03-23-2024 12:03-0400 Body weight 88.9 kg [facility] 03-23-2024 12:03-0400 Diastolic blood pressure 64 mm[Hg] [facility] 03-23-2024 12:03-0400 Heart rate 91 /min [facility] 03-23-2024 12:03-0400 SaO2% (BldA) [Mass fraction] 98 % [facility] 03-23-2024 12:03-0400 Systolic blood pressure 102 mm[Hg] [facility] 03-23-2024 08:40-0400 Body height 165.1 cm [facility] 03-03-2024 15:27-0400 Body temperature 98.71 [degF] Davi Rivas DO Work Phone: [facility] 03-03-2024 15:27-0400 Diastolic blood pressure 84 mm[Hg] Davi Pay DO Work Phone: [facility] [place] [facility] [facility] 03-03-2024 15:27-0400 Heart rate 115 /min Davi Pay DO Work Phone: [facility] [place] [facility] 03-03-2024 15:27-0400 Respiratory rate 18 /min Davi Pay DO Work Phone: [facility] [employer] [facility] 03-03-2024 15:27-0400 SaO2% (BldA) [Mass fraction] 97 % Davi Pay DO Work Phone: [facility] [place] 03-03-2024 15:27-0400 Systolic blood pressure 164 mm[Hg] Davi Pay DO Work Phone: [facility] 02-24-2024 20:29-0400 Body height 165.1 cm Ashley Delcid MD Work Phone: [facility] [employer] [facility] 02-24-2024 20:29-0400 Body temperature 98.01 [degF] Ashley Delcid MD Work Phone: [facility] [employer] [facility] 02-24-2024 20:29-0400 Diastolic blood pressure 72 mm[Hg] Ashley Delcid MD Work Phone: [facility] [employer] [facility] 02-24-2024 20:29-0400 Heart rate 94 /min Ashley Delcid MD Work Phone: [facility] [employer] [facility] 02-24-2024 20:29-0400 Respiratory rate 20 /min Ashley Delcid MD Work Phone: [facility] 02-24-2024 20:29-0400 SaO2% (BldA) [Mass fraction] 99 % Ashley Delcid MD Work Phone: [facility] [employer] [facility] 02-24-2024 20:29-0400 Systolic blood pressure 129 mm[Hg] Ashley Delcid MD Work Phone: [facility] [employer] [facility] 02-16-2024 16:47-0400 Diastolic blood pressure 68 mm[Hg] Jennifer Moore MD Work Phone: [facility] 02-16-2024 16:47-0400 Heart rate 99 /min Jennifer Moore MD Work Phone: [facility] 02-16-2024 16:47-0400 SaO2% (BldA) [Mass fraction] 96 % Jennifer Moore MD Work Phone: [facility] 02-16-2024 16:47-0400 Systolic blood pressure 115 mm[Hg] Jennifer Moore MD Work Phone: [facility] 02-16-2024 16:38-0400 Respiratory rate 18 /min Jennifer Moore MD Work Phone: [facility] 02-16-2024 13:28-0400 Body temperature 98.29 [degF] Jennifer Moore MD Work Phone: [facility] 02-13-2024 00:26-0400 Body temperature 98.24 [degF] Ritesh Ivana [facility] 02-13-2024 00:26-0400 Diastolic blood pressure 72 mm[Hg] Ritesh Ivana [facility] 02-13-2024 00:26-0400 Heart rate 86 /min Ritesh Ivana [facility] 02-13-2024 00:26-0400 Respiratory rate 16 /min Ritesh Ivana [facility] 02-13-2024 00:26-0400 SaO2% (BldA) [Mass fraction] 100 % Ritesh Ivana [facility] 02-13-2024 00:26-0400 Systolic blood pressure 109 mm[Hg] Ritesh Ivana [facility] 01-22-2024 12:13-0400 Body height 165.1 cm Eren Camejo DO Work Phone: [facility] 01-22-2024 12:13-0400 Body mass index (BMI) [Ratio] 29.95 kg/m2 Eren Camejo DO Work Phone: [facility] [employer] 01-22-2024 12:13-0400 Body temperature 98.71 [degF] Eren Camejo DO Work Phone: [facility] [employer] 01-22-2024 12:13-0400 Body weight 81.65 kg Eren Camejo DO Work Phone: [facility] [employer] 01-22-2024 12:13-0400 Diastolic blood pressure 92 mm[Hg] Eren Camejo DO Work Phone: [facility] [employer] 01-22-2024 12:13-0400 Heart rate 109 /min Eren Camejo DO Work Phone: [facility] [employer] 01-22-2024 12:13-0400 Respiratory rate 18 /min rEen Camejo DO Work Phone: [facility] [employer] 01-22-2024 12:13-0400 SaO2% (BldA) [Mass fraction] 100 % rEen Camejo DO Work Phone: [facility] [employer] 01-22-2024 12:13-0400 Systolic blood pressure 152 mm[Hg] Eren Camejo DO Work Phone: [facility] [employer] 01-19-2024 11:18-0400 Body height 165.1 cm DO Jennifer Duran Work Phone: [facility] 01-19-2024 11:18-0400 Body mass index (BMI) [Ratio] 31.9 kg/m2 DO Jennifer Duran Work Phone: [facility] 01-19-2024 11:18-0400 Body temperature 98.2 [degF] DO Jennifer Duran Work Phone: [facility] 01-19-2024 11:18-0400 Body weight 87.08 kg DO Jennifer Duran Work Phone: [facility] 01-19-2024 11:18-0400 Diastolic blood pressure 82 mm[Hg] DO Jennifer Duran Work Phone: [facility] 01-19-2024 11:18-0400 Heart rate 102 /min DO Jennifer Girivelisse Work Phone: [facility] 01-19-2024 11:18-0400 Respiratory rate 18 /min DO Jennifer Girivelisse Work Phone: [facility] 01-19-2024 11:18-0400 SaO2% (BldA) [Mass fraction] 98 % DO Jennifer Duran Work Phone: [facility] 01-19-2024 11:18-0400 Systolic blood pressure 122 mm[Hg] DO Jennifer Duran Work Phone: [facility] 11-08-2023 14:03-0400 Body height 165.1 cm DO Jennifer Duran Work Phone: [facility] 11-08-2023 14:03-0400 Body temperature 98.1 [degF] DO Jennifer Duran Work Phone: [facility] 11-08-2023 14:03-0400 Body weight 82.85 kg DO Jennifer Duran Work Phone: [facility] 11-08-2023 14:03-0400 Diastolic blood pressure 77 mm[Hg] DO Jennifer Duran Work Phone: [facility] 11-08-2023 14:03-0400 Heart rate 86 /min DO Jennifer Duran Work Phone: [facility] 11-08-2023 14:03-0400 Respiratory rate 16 /min DO Jennifer Duran Work Phone: [facility] 11-08-2023 14:03-0400 SaO2% (BldA) [Mass fraction] 100 % DO Jennifer Duran Work Phone: [facility] 11-08-2023 14:03-0400 Systolic blood pressure 142 mm[Hg] DO Jennifer Duran Work Phone: [facility] 11-08-2023 11:56-0400 Body height 165.1 cm Eren Camejo DO Work Phone: [facility] 11-08-2023 11:56-0400 Body mass index (BMI) [Ratio] 30.45 kg/m2 Eren Camejo DO Work Phone: [facility] 11-08-2023 11:56-0400 Body temperature 97.81 [degF] Eren Camejo DO Work Phone: [facility] 11-08-2023 11:56-0400 Body weight 83.01 kg Eren Camejo DO Work Phone: [facility] 11-08-2023 11:56-0400 Diastolic blood pressure 86 mm[Hg] Eren Camejo DO Work Phone: [facility] 11-08-2023 11:56-0400 Heart rate 100 /min Eren Camejo DO Work Phone: [facility] 11-08-2023 11:56-0400 Respiratory rate 18 /min Eren Camejo DO Work Phone: [facility] 11-08-2023 11:56-0400 SaO2% (BldA) [Mass fraction] 99 % rEen Camejo DO Work Phone: [facility] 11-08-2023 11:56-0400 Systolic blood pressure 133 mm[Hg] Eren Camejo DO Work Phone: [facility] [employer] 09-30-2023 02:09-0400 Diastolic blood pressure 89 mm[Hg] Ritesh Ivana [facility] 09-30-2023 02:09-0400 Heart rate 124 /min Ritesh Ivana [facility] 09-30-2023 02:09-0400 Mean blood pressure 109 mm[Hg] Ritesh Ivana [facility] 09-30-2023 02:09-0400 Respiratory rate 20 /min RiteshFlowgramner [facility] 09-30-2023 02:09-0400 SaO2% (BldA) [Mass fraction] 98 % Ritesh Ivana [facility] 09-30-2023 02:09-0400 Systolic blood pressure 149 mm[Hg] Ritesh Ivana [facility] 09-30-2023 01:00-0400 Diastolic blood pressure 82 mm[Hg] Ritesh Ivana [facility] 09-30-2023 01:00-0400 Heart rate 118 /min Ritesh Ivana [facility] 09-30-2023 01:00-0400 Mean blood pressure 104 mm[Hg] Ritesh Ivana [facility] 09-30-2023 01:00-0400 SaO2% (BldA) [Mass fraction] 99 % Ritesh Ivana [facility] 09-30-2023 01:00-0400 Systolic blood pressure 147 mm[Hg] Ritesh Ivana [facility] 09-29-2023 23:40-0400 Body temperature 97.7 [degF] Ritesh Ivana [facility] 09-29-2023 23:40-0400 Diastolic blood pressure 92 mm[Hg] Ritesh Ivana [facility] 09-29-2023 23:40-0400 Heart rate 139 /min Ritesh Ivana [facility] 09-29-2023 23:40-0400 Respiratory rate 20 /min Ritesh Ivana [facility] 09-29-2023 23:40-0400 SaO2% (BldA) [Mass fraction] 100 % Ritesh Ivana [facility] 09-29-2023 23:40-0400 Systolic blood pressure 144 mm[Hg] Ritesh Heath [facility] 09-26-2023 18:00-0400 Heart rate 119 /min Konstantin Penny [facility] 09-26-2023 18:00-0400 SaO2% (BldA) [Mass fraction] 96 % Konstantin Warde [facility] 09-26-2023 17:30-0400 Diastolic blood pressure 124 mm[Hg] Konstantin Zohaib [facility] 09-26-2023 17:30-0400 Heart rate 105 /min Konstantin Warde [facility] 09-26-2023 17:30-0400 Mean blood pressure 129 mm[Hg] Konstantin Warde [facility] 09-26-2023 17:30-0400 SaO2% (BldA) [Mass fraction] 100 % Konstantin Warde [facility] 09-26-2023 17:30-0400 Systolic blood pressure 139 mm[Hg] Konstantin Warde [facility] 09-26-2023 16:48-0400 Diastolic blood pressure 82 mm[Hg] Konstantin Warde [facility] 09-26-2023 16:48-0400 Heart rate 126 /min Konstantin Zohaib [facility] 09-26-2023 16:48-0400 Mean blood pressure 101 mm[Hg] Konstantin Warde [facility] 09-26-2023 16:48-0400 Respiratory rate 18 /min Konstantin Warde [facility] 09-26-2023 16:48-0400 SaO2% (BldA) [Mass fraction] 100 % Konstantin Penny [facility] 09-26-2023 16:48-0400 Systolic blood pressure 139 mm[Hg] Konstantin Penny [facility] 09-26-2023 16:30-0400 Diastolic blood pressure 96 mm[Hg] Konstantin Penny [facility] 09-26-2023 16:30-0400 Mean blood pressure 105 mm[Hg] Konstantin Penny [facility] 09-26-2023 16:30-0400 Respiratory rate 18 /min Konstantin Penny [facility] 09-26-2023 16:30-0400 Systolic blood pressure 122 mm[Hg] Konstantin Penny [facility] 09-26-2023 14:45-0400 Respiratory rate 18 /min Konstantin Penny [facility] 09-26-2023 14:13-0400 Body temperature 98.6 [degF] Konstantin Penny [facility] 07-31-2023 18:01-0500 Diastolic blood pressure 87 mm[Hg] Jignesh Dumont [facility] 07-31-2023 18:01-0500 Heart rate 121 /min Jignesh Tim [facility] 07-31-2023 18:01-0500 Mean blood pressure 99 mm[Hg] Jignesh Tim [facility] 07-31-2023 18:01-0500 Respiratory rate 16 /min Jignesh Tim [facility] 07-31-2023 18:01-0500 SaO2% (BldA) [Mass fraction] 99 % Jignesh Tim [facility] 07-31-2023 18:01-0500 Systolic blood pressure 123 mm[Hg] Jignesh Tim [facility] 07-31-2023 17:00-0500 Diastolic blood pressure 77 mm[Hg] Jignesh Tim [facility] 07-31-2023 17:00-0500 Heart rate 96 /min Jignesh Tim [facility] 07-31-2023 17:00-0500 Mean blood pressure 92 mm[Hg] Jignesh Tim [facility] 07-31-2023 17:00-0500 Systolic blood pressure 122 mm[Hg] Jignesh Tim [facility] 07-31-2023 16:07-0500 Diastolic blood pressure 90 mm[Hg] Jignesh Tim [facility] 07-31-2023 16:07-0500 Heart rate 117 /min Jignesh Tim [facility] 07-31-2023 16:07-0500 Mean blood pressure 105 mm[Hg] Jignesh Tim [facility] 07-31-2023 16:07-0500 Respiratory rate 19 /min Jignesh Tim [facility] 07-31-2023 16:07-0500 SaO2% (BldA) [Mass fraction] 100 % Jingesh Tim [facility] 07-31-2023 16:07-0500 Systolic blood pressure 135 mm[Hg] Jignesh Tim [facility] 07-31-2023 16:06-0500 Respiratory rate 18 /min Jignesh Tim [facility] 07-31-2023 15:34-0500 Body temperature 97.88 [degF] Jignesh Tim [facility] 07-31-2023 15:34-0500 Heart rate 136 /min Jignesh Dumont [facility] 07-31-2023 15:34-0500 Respiratory rate 18 /min Jignesh Dumont [facility] 07-19-2023 12:40-0500 Body height 165.1 cm Jennifer Duran Other [facility] [employer] Other 04-30-2023 18:19-0500 Diastolic blood pressure 82 mm[Hg] DO Jennifer Enochivelisse Work Phone: [facility] 04-30-2023 18:19-0500 Heart rate 128 /min DO Jennifer Druan Work Phone: [facility] 04-30-2023 18:19-0500 Respiratory rate 18 /min DO Jennifer Duran Work Phone: [facility] 04-30-2023 18:19-0500 SaO2% (BldA) [Mass fraction] 99 % DO Jennifer Duran Work Phone: [facility] 04-30-2023 18:19-0500 Systolic blood pressure 116 mm[Hg] DO Jennifer Duran Work Phone: [facility] 04-30-2023 16:43-0500 Body height 165.1 cm DO Jennifer Duran Work Phone: [facility] 04-30-2023 16:43-0500 Body temperature 98.1 [degF] DO Jennifer Duran Work Phone: [facility] 04-30-2023 16:43-0500 Body weight 62.3 kg DO Jennifer Duran Work Phone: [facility] 04-24-2023 15:51-0500 Diastolic blood pressure 81 mm[Hg] Jignesh Dumont [facility] 04-24-2023 15:51-0500 Heart rate 98 /min Jignesh Tim [facility] 04-24-2023 15:51-0500 Mean blood pressure 94 mm[Hg] Jignesh Tim [facility] 04-24-2023 15:51-0500 Respiratory rate 17 /min Jignesh Tim [facility] 04-24-2023 15:51-0500 SaO2% (BldA) [Mass fraction] 99 % Jignesh Tim [facility] 04-24-2023 15:51-0500 Systolic blood pressure 120 mm[Hg] Jignesh Tim [facility] 04-24-2023 15:00-0500 Diastolic blood pressure 72 mm[Hg] Jignesh Tim [facility] 04-24-2023 15:00-0500 Heart rate 85 /min Jignesh Tim [facility] 04-24-2023 15:00-0500 Mean blood pressure 87 mm[Hg] Jignesh Tim [facility] 04-24-2023 15:00-0500 Respiratory rate 16 /min Jignesh Tim [facility] 04-24-2023 15:00-0500 SaO2% (BldA) [Mass fraction] 96 % Jignesh Tim [facility] 04-24-2023 15:00-0500 Systolic blood pressure 117 mm[Hg] Jignesh Itm [facility] 04-24-2023 14:00-0500 Diastolic blood pressure 88 mm[Hg] Jignesh Tim [facility] 04-24-2023 14:00-0500 Heart rate 99 /min Jignesh Tim [facility] 04-24-2023 14:00-0500 Mean blood pressure 100 mm[Hg] Jignesh Dumont [facility] 04-24-2023 14:00-0500 Respiratory rate 18 /min Jignesh Dumont [facility] 04-24-2023 14:00-0500 SaO2% (BldA) [Mass fraction] 97 % Jignesh Dumont [facility] 04-24-2023 14:00-0500 Systolic blood pressure 124 mm[Hg] Jignesh Dumont [facility] 04-24-2023 13:29-0500 Body temperature 99.14 [degF] Jignesh Dumont [facility] 04-24-2023 13:29-0500 Heart rate 118 /min Jignesh Dumont [facility] 04-03-2023 00:20-0400 Diastolic blood pressure 70 mm[Hg] DO Jennifer Duran Work Phone: [facility] 04-03-2023 00:20-0400 Heart rate 80 /min DO Jennifer Duran Work Phone: [facility] 04-03-2023 00:20-0400 SaO2% (BldA) [Mass fraction] 98 % DO Jennifer Duran Work Phone: [facility] 04-03-2023 00:20-0400 Systolic blood pressure 122 mm[Hg] DO Jennifer Duran Work Phone: [facility] 04-02-2023 21:48-0400 Diastolic blood pressure 75 mm[Hg] DO Jennifer Duran Work Phone: [facility] 04-02-2023 21:48-0400 Heart rate 90 /min DO Jennifer Duran Work Phone: [facility] 04-02-2023 21:48-0400 Respiratory rate 20 /min DO Jennifer Duran Work Phone: [facility] 04-02-2023 21:48-0400 SaO2% (BldA) [Mass fraction] 98 % DO Jennifer Duran Work Phone: [facility] 04-02-2023 21:48-0400 Systolic blood pressure 109 mm[Hg] DO Jennifer Duran Work Phone: [facility] 04-02-2023 20:23-0400 Body height 165.1 cm DO Jennifer Duran Work Phone: [facility] 04-02-2023 20:23-0400 Body temperature 98.2 [degF] DO Jennifer Duran Work Phone: [facility] 04-02-2023 20:23-0400 Body weight 81.64 kg DO Jennifer Duran Work Phone: [facility] 03-29-2023 16:11-0400 Body temperature 97.8 [degF] DO Jennifer Duran Work Phone: [facility] 03-29-2023 16:11-0400 Diastolic blood pressure 79 mm[Hg] DO Jennifer Duran Work Phone: [facility] 03-29-2023 16:11-0400 Heart rate 104 /min DO Jennifer Duran Work Phone: [facility] 03-29-2023 16:11-0400 Respiratory rate 16 /min DO Jennifer Duran Work Phone: [facility] 03-29-2023 16:11-0400 SaO2% (BldA) [Mass fraction] 98 % DO Jennifer Duran Work Phone: [facility] 03-29-2023 16:11-0400 Systolic blood pressure 123 mm[Hg] DO Jennifer Duran Work Phone: [facility] 03-29-2023 06:35-0400 Body height 165.1 cm DO Jennifer Duran Work Phone: [facility] 03-29-2023 06:35-0400 Body weight 87.5 kg DO Jennifer Girvin Work Phone: [facility] 03-29-2023 05:41-0400 Diastolic blood pressure 85 mm[Hg] DO Jennifer Girvin Work Phone: [facility] 03-29-2023 05:41-0400 Heart rate 110 /min DO Jennifer Girvin Work Phone: [facility] 03-29-2023 05:41-0400 Respiratory rate 18 /min DO Jennifer Girvin Work Phone: [facility] 03-29-2023 05:41-0400 SaO2% (BldA) [Mass fraction] 100 % DO Jennifer Girvin Work Phone: [facility] 03-29-2023 05:41-0400 Systolic blood pressure 160 mm[Hg] DO Jennifer Girvin Work Phone: [facility] 03-29-2023 01:39-0400 Body height 165.1 cm DO Jennifer Girivelisse Work Phone: [facility] 03-29-2023 01:39-0400 Body temperature 97.2 [degF] DO Jennifer Girivelisse Work Phone: [facility] 03-29-2023 01:39-0400 Body weight 87 kg DO Jennifer Girvin Work Phone: [facility] 02-06-2023 04:00-0400 Diastolic blood pressure 74 mm[Hg] DO Jennifer Girvin Work Phone: [facility] 02-06-2023 04:00-0400 Heart rate 79 /min DO Jennifer Girvin Work Phone: [facility] 02-06-2023 04:00-0400 Respiratory rate 15 /min DO Jennifer Girvin Work Phone: [facility] 02-06-2023 04:00-0400 SaO2% (BldA) [Mass fraction] 99 % DO Jennifer Girvin Work Phone: [facility] 02-06-2023 04:00-0400 Systolic blood pressure 119 mm[Hg] DO Jeninfer Duran Work Phone: [facility] 02-05-2023 23:41-0400 Body height 165.1 cm DO Jennifer Duran Work Phone: [facility] 02-05-2023 23:41-0400 Body temperature 98 [degF] DO Jennifer Duran Work Phone: [facility] 02-05-2023 23:41-0400 Body weight 81.64 kg DO Jennifer Duran Work Phone: [facility] 01-12-2023 14:40-0400 Body height 165.1 cm Jennifer Duran Other [employer] [facility] [employer] Other 01-12-2023 14:40-0400 Body mass index (BMI) [Ratio] 33.44 kg/m2 Jennifer Duran Other [employer] Other 01-12-2023 14:40-0400 Body temperature 99.5 [degF] Jennifer Duran Other [employer] Other 01-12-2023 14:40-0400 Body weight 91.17 kg Jennifer Duran Other [employer] Other 01-12-2023 14:40-0400 Diastolic blood pressure 78 mm[Hg] Jennifer Duran Other [employer] Other 01-12-2023 14:40-0400 Respiratory rate 18 /min Jennifer Duran Other [employer] Other 01-12-2023 14:40-0400 SaO2% (BldA) [Mass fraction] 97 % Jennifer Duran Other [employer] Other 01-12-2023 14:40-0400 Systolic blood pressure 110 mm[Hg] Jennifer Duran Other [employer] Other 10-11-2022 16:20-0400 Body height 165.1 cm Jennifer Duran Other [employer] Other 07-12-2022 16:20-0500 Body height 165.1 cm Jennifer Duran Other [employer] Other 07-12-2022 16:20-0500 Body mass index (BMI) [Ratio] 31.2 kg/m2 Jennifer Duran Other [employer] Other 07-12-2022 16:20-0500 Body temperature 97.2 [degF] Jennifer Duran Other [employer] Other 07-12-2022 16:20-0500 Body weight 85.05 kg Jennifer Duran Other [employer] Other 07-12-2022 16:20-0500 Diastolic blood pressure 74 mm[Hg] Jennifer Duran Other [employer] Other 07-12-2022 16:20-0500 Respiratory rate 18 /min Jennifer Duran Other [employer] Other 07-12-2022 16:20-0500 SaO2% (BldA) [Mass fraction] 99 % Jennifer Duran Other [employer] Other 07-12-2022 16:20-0500 Systolic blood pressure 106 mm[Hg] Jennifer Duran Other [employer] Other 04-28-2022 04:00-0500 Diastolic blood pressure 70 mm[Hg] DO Jennifer Duran Work Phone: [facility] 04-28-2022 04:00-0500 Heart rate 81 /min DO Jennifer Duran Work Phone: [facility] 04-28-2022 04:00-0500 SaO2% (BldA) [Mass fraction] 96 % DO Jennifer Duran Work Phone: [facility] 04-28-2022 04:00-0500 Systolic blood pressure 110 mm[Hg] DO Jennifer Duran Work Phone: [facility] 04-28-2022 03:56-0500 Body height 165.1 cm DO Jennifer Duran Work Phone: [facility] 04-28-2022 03:56-0500 Body weight 80 kg DO Jennifer Duran Work Phone: [facility] 04-28-2022 03:56-0500 Respiratory rate 18 /min DO Jennifer Duran Work Phone: [facility] 04-28-2022 00:13-0500 Body temperature 97.2 [degF] DO Jennifer Duran Work Phone: [facility] 04-12-2022 15:40-0400 Body height 165.1 cm Jennifer Duran Other [employer] [facility] [employer] Other 04-12-2022 15:40-0400 Body mass index (BMI) [Ratio] 30.37 kg/m2 Jennifer Duran Other [employer] Other 04-12-2022 15:40-0400 Body temperature 98.8 [degF] Jennifer Duran Other [employer] Other 04-12-2022 15:40-0400 Body weight 82.78 kg Jennifer Duran Other [employer] Other 04-12-2022 15:40-0400 Diastolic blood pressure 76 mm[Hg] Jennifer Duran Other [employer] Other 04-12-2022 15:40-0400 Respiratory rate 18 /min Jennifer Duran Other [employer] Other 04-12-2022 15:40-0400 SaO2% (BldA) [Mass fraction] 98 % Jennifer Duran Other [employer] Other 04-12-2022 15:40-0400 Systolic blood pressure 110 mm[Hg] Jennifer Duran Other [employer] Other 04-09-2022 13:32-0400 Body temperature 97.59 [degF] Chair Lei Work Phone: [facility] 04-09-2022 13:32-0400 Diastolic blood pressure 64 mm[Hg] Chair Judith Basin Work Phone: [facility] 04-09-2022 13:32-0400 Heart rate 114 /min Chair Judith Basin Work Phone: [facility] 04-09-2022 13:32-0400 Respiratory rate 18 /min Chair Lei Work Phone: [facility] 04-09-2022 13:32-0400 SaO2% (BldA) [Mass fraction] 97 % Chair Judith Basin Work Phone: [facility] 04-09-2022 13:32-0400 Systolic blood pressure 116 mm[Hg] Chair Judith Basin Work Phone: [facility] 03-26-2022 13:54-0400 Body temperature 97.9 [degF] Chair Judith Basin Work Phone: [facility] 03-26-2022 13:54-0400 Diastolic blood pressure 75 mm[Hg] Chair Judith Basin Work Phone: [facility] 03-26-2022 13:54-0400 Heart rate 82 /min Chair Lei Work Phone: [facility] 03-26-2022 13:54-0400 Respiratory rate 18 /min Chair Lei Work Phone: [facility] 03-26-2022 13:54-0400 SaO2% (BldA) [Mass fraction] 100 % Chair Lei Work Phone: [facility] 03-26-2022 13:54-0400 Systolic blood pressure 106 mm[Hg] Chair Lei Work Phone: [facility] 03-10-2022 13:54-0400 Body height 165.1 cm Madyson Ni APRN.DIRECTOR OF VENDOR MANAGEMENT Work Phone: [facility] 03-10-2022 13:54-0400 Body temperature 97.9 [degF] Madyson Ni APRN.DIRECTOR OF VENDOR MANAGEMENT Work Phone: [facility] 03-10-2022 13:54-0400 Body weight 83.37 kg Madyson Ni APRN.DIRECTOR OF VENDOR MANAGEMENT Work Phone: [facility] 03-10-2022 13:54-0400 Diastolic blood pressure 75 mm[Hg] Madyson Ni APRN.DIRECTOR OF VENDOR MANAGEMENT Work Phone: [facility] 03-10-2022 13:54-0400 Heart rate 95 /min Madyson Ni APRN.DIRECTOR OF VENDOR MANAGEMENT Work Phone: [facility] 03-10-2022 13:54-0400 Respiratory rate 16 /min Madyson Ni APRN.DIRECTOR OF VENDOR MANAGEMENT Work Phone: [facility] 03-10-2022 13:54-0400 SaO2% (BldA) [Mass fraction] 100 % Madyson Ni APRN.DIRECTOR OF VENDOR MANAGEMENT Work Phone: [facility] 03-10-2022 13:54-0400 Systolic blood pressure 130 mm[Hg] Madyson Ni APRN.DIRECTOR OF VENDOR MANAGEMENT Work Phone: [facility] 12-04-2021 12:49-0400 Blood Pressure Location Yamilka Lorenzo [facility] 12-04-2021 12:49-0400 Body temperature 98.42 [degF] Yamilka Orzech [facility] 12-04-2021 12:49-0400 Diastolic blood pressure 82 mm[Hg] Yamilka Orzech [facility] 12-04-2021 12:49-0400 Heart rate 110 /min Yamilka Orzech [facility] 12-04-2021 12:49-0400 SaO2% (BldA) [Mass fraction] 99 % Yamilka Orzech [facility] 12-04-2021 12:49-0400 Systolic blood pressure 126 mm[Hg] Yamilka Orzech [facility] 10-16-2021 09:10-0400 Body height 165.1 cm Jennifer Duran Other [facility] [employer] Other 09-14-2021 19:31-0400 Diastolic blood pressure 82 mm[Hg] DO Jennifer Duran Work Phone: [facility] 09-14-2021 19:31-0400 Heart rate 87 /min DO Jennifer Duran Work Phone: [facility] 09-14-2021 19:31-0400 Respiratory rate 18 /min DO Jennifer Duran Work Phone: [facility] 09-14-2021 19:31-0400 SaO2% (BldA) [Mass fraction] 99 % DO Jennifer Duran Work Phone: [facility] 09-14-2021 19:31-0400 Systolic blood pressure 126 mm[Hg] DO Jennifer Duran Work Phone: [facility] 09-14-2021 14:45-0400 Body height 165.1 cm DO Jennifer Duran Work Phone: [facility] 09-14-2021 14:45-0400 Body mass index (BMI) [Ratio] 30.7 kg/m2 DO Jennifer Duran Work Phone: [facility] 09-14-2021 14:45-0400 Body temperature 98 [degF] DO Jennifer Durna Work Phone: [facility] 09-14-2021 14:45-0400 Body weight 83.91 kg DO Jennifer Duran Work Phone: [facility] 04-21-2021 16:20-0500 Body height 165.1 cm Jennifer Duran Other [facility] [facility] [employer] Other 04-21-2021 16:20-0500 Body mass index (BMI) [Ratio] 32.28 kg/m2 Jennifer Duran Other [employer] Other 04-21-2021 16:20-0500 Body temperature 98.3 [degF] Jennifer Duran Other [employer] Other 04-21-2021 16:20-0500 Body weight 88 kg Jennifer Duran Other [employer] Other 04-21-2021 16:20-0500 Diastolic blood pressure 82 mm[Hg] Jennifer Duran Other [employer] Other 04-21-2021 16:20-0500 SaO2% (BldA) [Mass fraction] 98 % Jennifer Enochivelisse Other [employer] Other 04-21-2021 16:20-0500 Systolic blood pressure 124 mm[Hg] Jennifer Kendallivelisse Other [employer] Other Encounters Encounter Date Encounter Type Care Provider Facility Start: 01-15-2025 End: 01-15-2025 Emergency department patient visit Angeles Dougherty [place] Start: 12-06-2024 End: 12-06-2024 Emergency department patient visit NO PCP NO PCP [facility] Start: 10-01-2024 End: 10-02-2024 ambulatory NO PCP NO PCP [facility] Start: 10-01-2024 End: 10-01-2024 Telephone encounter Thalia Barnard [facility] varghese Comment on above: right sided abdomina l pain Start: 09-27-2024 End: 09-28-2024 Emergency department patient visit NO PCP NO PCP [facility] Start: 09-12-2024 End: 09-12-2024 Telephone encounter Adiel Aparicio MD Work Phone: [facility] Gynecology Oncology, A Department of [facility] Comment on above: Appointment Start: 09-04-2024 End: 09-04-2024 Emergency department patient visit NO PCP NO PCP [facility] Start: 09-04-2024 End: 09-04-2024 Telephone encounter Latisha Venegas [facility] Comment on above: Abdominal Pain; Naus ea Start: 09-03-2024 End: 09-03-2024 ambulatory [facility] Work Phone: Start: 09-03-2024 End: 09-03-2024 Patient encounter procedure [facility] [place] Work Phone: Start: 08-10-2024 End: 08-10-2024 Emergency department patient visit Jignesh Dumont [facility] Start: 08-09-2024 End: 08-09-2024 Orders Only Shanae BACON Work Phone: [facility] Gynecology Oncology, A Department of [facility] Start: 08-05-2024 End: 08-05-2024 Emergency department patient visit Dimitri Vuong [facility] Start: 08-05-2024 End: 08-05-2024 Emergency department patient visit Dimitri Vuong [facility] Start: 08-02-2024 End: 08-02-2024 Emergency department patient visit Neha Hannah [facility] Start: 08-01-2024 End: 08-01-2024 Emergency department patient visit NO PCP NO PCP [facility] Start: 08-01-2024 End: 08-01-2024 Emergency department patient visit Konstantin Jain MD Work Phone: [facility] Emergency Medicine Start: 07-29-2024 End: 07-29-2024 Emergency department patient visit ROSE HARDY [facility] Comment on above: Chronic pelvic pain in female (Primary Dx); Right lower quadrant abdominal pain Start: 07-27-2024 End: 07-28-2024 Emergency department patient visit NO PCP NO PCP [facility] Start: 07-21-2024 End: 07-21-2024 Emergency department patient visit NO PCP NO PCP [facility] Start: 07-14-2024 End: 07-14-2024 Emergency department patient visit Donya Romano MD Work Phone: [facility] Emergency Medicine Start: 07-13-2024 End: 07-13-2024 Emergency department patient visit NO PCP NO PCP [facility] Start: 07-11-2024 End: 07-12-2024 Emergency department patient visit Shalonda Bacon MD Work Phone: [facility] Emergency Department Comment on above: Generalized abdomina l pain (Primary Dx) Start: 07-10-2024 Emergency department patient visit None Provider Facility:[facility] Start: 07-10-2024 Emergency department patient visit None Provider Facility:[facility] Start: 07-07-2024 End: 07-07-2024 Emergency department patient visit NO PCP NO PCP [facility] Start: 06-27-2024 End: 06-28-2024 Emergency department patient visit DO Jordyn Willett [place] Start: 06-27-2024 End: 06-27-2024 Emergency department patient visit Randee Richardson MD Work Phone: [facility] Emergency Department Comment on above: Abdominal pain, righ t lower quadrant (Primary Dx) Start: 06-24-2024 End: 06-25-2024 Emergency department patient visit Ritesh Heath [facility] Start: 06-11-2024 Emergency department patient visit None Provider Facility:[facility] Start: 06-11-2024 End: 06-11-2024 Telephone encounter Kendra BACON Work Phone: [facility] Gynecology Oncology, A Department of [facility] Comment on above: Appointment Start: 06-11-2024 End: 06-11-2024 ambulatory ROBBIE ARRIAZA [facility] Start: 06-10-2024 End: 06-10-2024 ambulatory NO PCP NO PCP [facility] Start: 06-09-2024 End: 06-10-2024 Emergency department patient visit NO PCP NO PCP [facility] Start: 06-09-2024 End: 06-09-2024 Telephone encounter Isabell Lentz [facility] Taj varghese Comment on above: abnormal CT Start: 06-08-2024 Emergency department patient visit None Provider Facility:[facility] Start: 06-05-2024 End: 06-05-2024 Emergency department patient visit NO PCP NO PCP [facility] Start: 05-27-2024 End: 05-28-2024 Emergency department patient visit [facility] Start: 04-06-2024 End: 04-06-2024 Evaluation and management of inpatient NO PCP NO PCP [facility] Start: 04-05-2024 End: 04-05-2024 Emergency department patient visit NO PCP NO PCP [facility] Start: 04-03-2024 End: 04-03-2024 Evaluation and management of inpatient NO PCP NO PCP [facility] Start: 03-30-2024 Patient encounter status Isabell carlisle [facility] Start: 03-28-2024 End: 03-28-2024 ambulatory ADIEL [facility] Start: 03-28-2024 Encounter for other preprocedural examination ADIEL [facility] Start: 03-23-2024 End: 03-23-2024 ambulatory [facility] Work Phone: Start: 03-23-2024 End: 03-23-2024 Patient encounter procedure [facility] [place] Work Phone: Start: 03-07-2024 End: 03-07-2024 Emergency department patient visit NO PCP NO PCP [facility] Start: 03-03-2024 End: 03-03-2024 Emergency department patient visit Davi Rivas DO Work Phone: [facility] Start: 02-24-2024 End: 02-24-2024 Emergency department patient visit Ashley Delcid MD Work Phone: [facility] Start: 02-16-2024 End: 02-16-2024 Emergency department patient visit Jennifer Moore MD Work Phone: [facility] Start: 02-13-2024 End: 02-13-2024 Emergency department patient visit Ritesh Heath [facility] Start: 01-27-2024 End: 01-28-2024 Emergency department patient visit GUSTAVO DAVIES [facility] Start: 01-27-2024 End: 01-27-2024 Emergency department patient visit NO PCP NO PCP [facility] Start: 01-22-2024 End: 01-22-2024 Emergency department patient visit Eren Mireles Emely DO Work Phone: [facility] ED Comment on above: Cyst of left ovary ( Primary Dx) Start: 01-19-2024 End: 01-19-2024 ambulatory DO Jennifer Enochivelisse Work Phone: [facility] Work Phone: Start: 01-19-2024 End: 01-19-2024 Patient encounter procedure DO Jennifer Duran Work Phone: [facility] [place] Work Phone: Start: 12-07-2023 ambulatory DO Jennifer roberts Work Phone: [facility] Work Phone: Start: 12-07-2023 Non-patient / Non-visit DO Ponce Duran Work Phone: [facility] Work Phone: Start: 11-25-2023 End: 11-25-2023 Patient encounter procedure DO Jennifer Enochivelisse Work Phone: [facility]-CT Scan [facility] [place] Work Phone: Start: 11-25-2023 End: 11-25-2023 ambulatory DO Jennifer Duran Work Phone: [facility] Work Phone: Start: 11-23-2023 End: 11-23-2023 ambulatory [facility] Start: 11-09-2023 End: 11-09-2023 ambulatory [facility] Start: 11-08-2023 End: 11-08-2023 Emergency department patient visit DO Jennifer Enochivelisse Work Phone: [facility]-Emergency Room Work Phone: Start: 11-08-2023 End: 11-08-2023 Emergency department patient visit Eren Mireles Emely DO Work Phone: [facility] ED Comment on above: Toothache (Primary D x) Start: 10-19-2023 End: 10-19-2023 ambulatory TARUN BRADEN Not Available Start: 10-18-2023 End: 10-18-2023 ambulatory [facility] Work Phone: Start: 10-18-2023 End: 10-18-2023 Patient encounter procedure [facility] [place] Work Phone: Start: 09-29-2023 End: 09-30-2023 Emergency department patient visit Ritesh LewisEbenezer Ivana [facility] Start: 09-26-2023 End: 09-26-2023 Emergency department patient visit Konstantin Warde [facility] Start: 09-06-2023 End: 09-06-2023 Emergency department patient visit [facility] Start: 07-31-2023 End: 07-31-2023 Emergency department patient visit Jignesh Dumont [facility] Start: 07-28-2023 End: 07-28-2023 ambulatory PHYSICIAN NO [facility] Work Phone: Start: 07-28-2023 End: 07-28-2023 Patient encounter procedure PHYSICIAN NO [facility] Physician [facility] [place] Work Phone: Start: 07-19-2023 End: 07-19-2023 ambulatory Jennifer Duran Other [employer] Other Start: 07-19-2023 Telephone encounter Jennifer Duran [facility] [place] Start: 06-22-2023 End: 06-23-2023 Emergency department patient visit EVGENY SEN MD Facility:[facility] Start: 06-07-2023 End: 06-07-2023 ambulatory Jennifer Duran Other [employer] Other Start: 06-07-2023 Telephone encounter Jennifer Duran [facility] [place] Start: 05-16-2023 End: 05-16-2023 ambulatory Jennifer Duran Other [employer] Other Start: 05-16-2023 Telephone encounter Jennifer Duran [facility] [place] Start: 04-30-2023 End: 04-30-2023 Emergency department patient visit DO Jennifer Wilber Work Phone: [facility]-Emergency Room Work Phone: Start: 04-24-2023 End: 04-24-2023 Emergency department patient visit Jignesh Dumont [facility] Start: 04-18-2023 End: 04-18-2023 ambulatory Jennifer Duran Other [employer] Other Start: 04-18-2023 Telephone encounter Jennifer Duran [facility] [place] Start: 04-11-2023 End: 04-11-2023 ambulatory Jennifer Duran Other [employer] Other Start: 04-11-2023 Telephone encounter Jennifer Duran [facility] [place] Start: 04-04-2023 End: 04-04-2023 ambulatory Jennifer Duran Other [employer] Other Start: 04-04-2023 Telephone encounter Jennifer Duran [facility] [place] Start: 04-02-2023 End: 04-03-2023 Emergency department patient visit DO Jennifer Duran Work Phone: [facility]-Emergency Room Work Phone: Start: 04-01-2023 End: 04-01-2023 ambulatory Jennifer Duran Other [employer] Other Start: 04-01-2023 Telephone encounter Jennifer Duran [facility] [place] Start: 03-29-2023 Telephone encounter Jennifer Duran [facility] [place] Start: 03-29-2023 End: 03-29-2023 Evaluation and management of inpatient DO Jennifer Duran Work Phone: [facility] Work Phone: Start: 03-29-2023 End: 03-29-2023 observation encounter DO Jennifer Duran Work Phone: [facility] Work Phone: Start: 03-29-2023 End: 03-29-2023 ambulatory Jennifer Duran [employer] Other Start: 03-13-2023 End: 03-13-2023 ambulatory DO Jennifer Enochivelisse Work Phone: [facility] Work Phone: Start: 03-13-2023 End: 03-13-2023 Patient encounter procedure DO Jennifer Duran Work Phone: [facility]-Flu Vaccine Start: 03-02-2023 End: 03-02-2023 ambulatory Jennifer Duran Other [employer] Other Start: 03-02-2023 Telephone encounter Jennifer Duran [facility] [place] Start: 02-05-2023 End: 02-06-2023 Emergency department patient visit DO Jennifer Duran Work Phone: [facility]-Emergency Room Work Phone: Start: 01-12-2023 End: 01-12-2023 ambulatory Jennifer Duran Other [employer] Other Start: 01-12-2023 Office outpatient vi sit 15 minutes Jennifer Duran [facility] [place] Start: 12-09-2022 End: 12-09-2022 ambulatory Jennifer Duran Other [employer] Other Start: 12-09-2022 Telephone encounter Jennifer Duran [facility] [place] Start: 10-11-2022 End: 10-11-2022 ambulatory Jennifer Duran Other [employer] Other Start: 10-11-2022 Telephone encounter Jennifer Wilber [facility] [place] Start: 09-22-2022 End: 09-22-2022 ambulatory Jennifer Duran Other [employer] Other Start: 09-22-2022 Telephone encounter Jennifer Duran [facility] [place] Start: 07-28-2022 End: 07-28-2022 ambulatory BELKIS JAIME Facility:[facility] Start: 07-12-2022 End: 07-12-2022 ambulatory Jennifer Duran Other [employer] Other Start: 07-12-2022 Office outpatient vi sit 15 minutes Jennifer Duran [facility] [place] Start: 07-12-2022 Telephone encounter Jennifer Enochivelisse [facility] [place] Start: 06-02-2022 End: 06-02-2022 ambulatory Jennifer Duran Other [employer] Other Start: 06-02-2022 Telephone encounter Jennifer Wilber [facility] [place] Start: 05-04-2022 End: 05-04-2022 ambulatory Jennifer Duran Other [employer] Other Start: 05-04-2022 Telephone encounter Jennifer Duran [facility] [place] Start: 04-30-2022 Telephone encounter Madyson arechiga APRN.DIRECTOR OF VENDOR MANAGEMENT Work Phone: Hematology/Oncology Comment on above: Lab Orders Start: 04-28-2022 Evaluation and management of inpatient DO Jennifer Wilber Work Phone: [facility] [place] Start: 04-28-2022 observation encounter DO Jennifer Duran Work Phone: [facility] Work Phone: Start: 04-12-2022 End: 04-12-2022 ambulatory Jennifer Duran Other [employer] Other Start: 04-12-2022 Office outpatient vi sit 15 minutes Jennifer Duran [facility] Start: 04-12-2022 Telephone encounter Jennifer Duran [facility] Start: 04-09-2022 End: 04-10-2022 ambulatory Stephenie Suh 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 Comment on above: Art Therapy Iron deficiency anem ia due to chronic blood loss (Primary Dx); Malabsorption of iron; Cyst of left ovary Start: 03-26-2022 End: 03-27-2022 ambulatory MADYSON NI Facility:[facility] Start: 03-26-2022 End: 03-26-2022 ambulatory Chair Anton España Work Phone: Hematology/Oncology Comment on above: Iron deficiency anem ia due to chronic blood loss (Primary Dx); Malabsorption of iron; Cyst of left ovary Start: 03-15-2022 Telephone encounter Sharon Saavedra [facility] ematology/Oncology Comment on above: Social Work Services Start: 03-10-2022 End: 03-11-2022 ambulatory Madyson Ni APRN.DIRECTOR OF VENDOR MANAGEMENT Work Phone: Hematology/Oncology Comment on above: Iron deficiency anem ia due to chronic blood loss (Primary Dx); Malabsorption of iron Start: 03-10-2022 End: 03-10-2022 Patient encounter procedure Madyson Ni APRN.DIRECTOR OF VENDOR MANAGEMENT Work Phone: [facility] Start: 02-18-2022 Telephone encounter Madyson arechiga HEEL ATT[employer]ER [employer].DIRECTOR OF VENDOR MANAGEMENT Work Phone: Hematology/Oncology Comment on above: Lab Orders Start: 02-16-2022 End: 02-16-2022 ambulatory Jennifer Duran Other [employer] Other Start: 02-16-2022 Telephone encounter Jennifer Duran [facility] Start: 02-12-2022 End: 02-12-2022 Patient encounter procedure DO Jennifer Duran Work Phone: [facility]-Lab [facility] [place] Start: 01-07-2022 End: 01-07-2022 ambulatory Jennifer Duran Other [employer] Other Start: 01-07-2022 Telephone encounter Jennifer Duran [facility] [place] Start: 12-04-2021 End: 12-04-2021 Patient encounter procedure Yamilka X [facility] Start: 10-29-2021 End: 10-29-2021 ambulatory Jennifer Duran Other [employer] Other Start: 10-29-2021 Telephone encounter Jennifer Duran [facility] [place] Start: 10-16-2021 End: 10-16-2021 ambulatory Jennifer Duran Other [employer] Other Start: 10-16-2021 Office outpatient vi sit 15 minutes Jennifer Duran [facility] [place] Start: 09-21-2021 End: 09-21-2021 ambulatory Jennifer Duran Other [employer] Other Start: 09-21-2021 Telephone encounter Jennifer Duran [facility] [place] Start: 09-14-2021 End: 09-14-2021 Emergency department patient visit DO Jennifer Duran Work Phone: [facility]-Emergency Room Start: 08-18-2021 End: 08-18-2021 ambulatory Jennifer Duran Other [employer] Other Start: 08-18-2021 Telephone encounter Jennifer Duran [facility] [place] Start: 08-11-2021 End: 08-11-2021 ambulatory Jennifer Duran Other [employer] Other Start: 08-11-2021 Telephone encounter Jennifer Duran [facility] [place] Start: 08-03-2021 End: 08-03-2021 ambulatory Jennifer Duran Other [employer] Other Start: 08-03-2021 Telephone encounter Jennifer Duran [facility] Start: 07-04-2021 End: 07-04-2021 Patient encounter procedure DO Jennifer Duran Work Phone: [facility] [place] Start: 06-04-2021 End: 06-04-2021 ambulatory Jennifer Duran Other [employer] Other Start: 06-04-2021 Telephone encounter Jennifer Duran [facility] Start: 05-18-2021 End: 05-18-2021 ambulatory Jennifer Duran Other [employer] Other Start: 05-18-2021 [facility] Start: 04-21-2021 End: 04-21-2021 ambulatory Jennifer Duran Other [employer] Other Start: 04-21-2021 Encounter for genera l adult medical examination without abnormal findings Jennifer Duran [facility] Start: 04-21-2021 Periodic preventive med est patient 18-39 yrs Jennifer Duran [facility] Procedures Date Procedure Procedure Detail Performing [...] Adult BMI Screening Adult BMI Screen ing [facility] Start: 10-01-2025 Tobacco Screening Tobacco Screening [facility] Start: 09-04-2025 Tobacco Screening Tobacco Screening [facility] Start: 08-01-2025 Adult BMI Screening Adult BMI Screen ing [facility] Start: 08-01-2025 Tobacco Screening Tobacco Screening [facility] Start: 06-10-2025 Adult BMI Screening Adult BMI Screen ing [facility] Start: 06-09-2025 Adult BMI Screening Adult BMI Screen ing [facility] Start: 06-09-2025 Tobacco Screening Tobacco Screening [facility] Start: 02-11-2025 Influenza vaccination Influenza Vacc ine [facility] Start: 09-12-2024 End: 09-12-2024 Patient encounter procedure [facility] Gynecology Oncology, A Department of [facility] Start: 02-12-2024 COVID-19 VACCINE ( season) COVID-19 VACCINE ( season) [facility] Start: 02-12-2024 COVID-19 Vaccine ( season) COVID-19 Vaccine ( season) [facility] Start: 02-12-2024 Influenza vaccination A [facility] Start: 01-12-2024 Influenza vaccination Flu vaccine (# 1) [facility] Start: 12-07-2023 Patient referral [facility] Work Phone: Start: 03-30-2023 Comprehensive metabo lic 2000 panel - Serum or Plasma [facility] Start: 03-30-2023 [facility] Start: 03-29-2023 [facility] Start: 03-29-2023 Referral to editorial director [facility] Start: 03-29-2023 Hospital admission [facility] Start: 03-29-2023 [facility] Start: 03-29-2023 Computed tomography of abdomen and pelvis with contrast CT abdomen pelvis w [facility] Start: 03-29-2023 CT Abdomen and Pelvi s W contrast IV [facility] Start: 03-29-2023 Transvaginal echography US transvagi nal [facility] Start: 03-29-2023 US Pelvis transvaginal [facility] Start: 03-29-2023 Pelvic echography US pelvic complete [facility] Start: 03-29-2023 US Pelvis [facility] Start: 02-11-2023 COVID-19 Vaccine () COVID-19 Vaccine () [facility] Start: 02-06-2023 Pelvic echography US pelvic complete [facility] Start: 02-06-2023 US Pelvis [facility] Start: 02-06-2023 Transvaginal echography US transvagi [facility] Start: 02-06-2023 US Pelvis transvaginal [facility] Start: 02-05-2023 Computed tomography of abdomen and pelvis with contrast CT abdomen pelvis w [facility] Start: 02-05-2023 CT Abdomen and Pelvi s W contrast IV [facility] Start: 05-05-2022 End: 07-05-2022 CBC W Auto Differential panel - Blood CBC + DIFF Lab Routine Iron deficiency anemia due to chronic blood loss Malabsorption of iron Expected: 05/05/2022, Expires: 07/05/2022 [facility] Work Phone: Comment on above: Expected: 05/05/2022 , Expires: 07/05/2022 Start: 05-03-2022 End: 07-03-2022 Comprehensive metabolic 2000 panel - Serum or Plasma COMP METABOLIC PANEL Lab Routine Iron deficiency anemia due to chronic blood loss Expected: 05/03/2022, Expires: 07/03/2022 [facility] Work Phone: Comment on above: Expected: 05/03/2022 , Expires: 07/03/2022 Start: 04-28-2022 Pelvic echography US pelvic complete [facility] Start: 04-28-2022 US Pelvis [facility] Start: 04-28-2022 CT Abdomen and Pelvi s WO contrast [facility] Start: 04-28-2022 CT of abdomen and pe lvis without contrast CT abdomen pelvis wo con [facility] Start: 04-28-2022 Transvaginal echography US transvagi nal [facility] Start: 04-28-2022 US Pelvis transvaginal [facility] Start: 02-23-2022 End: 02-20-2023 CBC W Auto Differential panel - Blood CBC + DIFF Lab Routine Iron deficiency anemia due to chronic blood loss Expected: 02/23/2022 (Approximate), Expires: 02/20/2023 [facility] Work Phone: Comment on above: Expected: 02/23/2022 (Approximate), Expires: 02/20/2023 Start: 02-23-2022 End: 02-20-2023 Cobalamin (Vitamin B12) [Mass/volume] in Serum or Plasma VITAMIN B12 BLOOD Lab Routine Iron deficiency anemia due to chronic blood loss Expected: 02/23/2022 (Approximate), Expires: 02/20/2023 [facility] Work Phone: Comment on above: Expected: 02/23/2022 (Approximate), Expires: 02/20/2023 Start: 02-23-2022 End: 02-20-2023 Comprehensive metabolic 2000 panel - Serum or Plasma COMP METABOLIC PANEL Lab Routine Iron deficiency anemia due to chronic blood loss Expected: 02/23/2022 (Approximate), Expires: 02/20/2023 [facility] Work Phone: Comment on above: Expected: 02/23/2022 (Approximate), Expires: 02/20/2023 Start: 02-23-2022 End: 02-20-2023 Ferritin [Mass/volume] in Serum or Plasma FERRITIN BLD Lab Routine Iron deficiency anemia due to chronic blood loss Expected: 02/23/2022 (Approximate), Expires: 02/20/2023 [facility] Work Phone: Comment on above: Expected: 02/23/2022 (Approximate), Expires: 02/20/2023 Start: 02-23-2022 End: 02-20-2023 Folate [Mass/volume] in Serum or Plasma FOLATE SERUM Lab Routine Iron deficiency anemia due to chronic blood loss Expected: 02/23/2022 (Approximate), Expires: 02/20/2023 [facility] Work Phone: Comment on above: Expected: 02/23/2022 (Approximate), Expires: 02/20/2023 Start: 02-23-2022 End: 02-20-2023 Iron and Iron binding capacity panel - Serum or Plasma IRON + TIBC Lab Routine Iron deficiency anemia due to chronic blood loss Expected: 02/23/2022 (Approximate), Expires: 02/20/2023 [facility] Work Phone: Comment on above: Expected: 02/23/2022 (Approximate), Expires: 02/20/2023 Start: 02-11-2022 Influenza vaccination INFLUENZA (#1) [facility] Start: 06-13-2021 DEPRESSION ASSESSMENT DEPRESSION ASS ESSMENT [facility] Start: 11-30-2020 COVID-19 VACCINE (3 - Booster for Moderna series) COVID-19 VACCINE (3 - Booster for Moderna series) [facility] Start: 08-27-2020 COVID-19 VACCINE (3 - Booster for Moderna series) COVID-19 VACCINE (3 - Booster for Moderna series) [facility] Start: 2017 HPV TESTING HPV TESTING [facility] Start: 2017 Screening for malign ant neoplasm of cervix [facility] Start: 01-11-2008 PAP TESTING PAP TESTING [facility] Start: 01-11-2008 Screening for malign ant neoplasm of cervix [facility] Start: 2006 DTaP,Tdap and Td Vaccines (1 - Tdap) DTaP,Tdap and Td Vaccines (1 - Tdap) [facility] Start: 2006 DTaP/Tdap/Td vaccine (1 - Tdap) DTaP/Tdap/Td vaccine (1 - Tdap) [facility] Start: 2006 Hepatitis B vaccination HEP B VACCINE (1 of 3 - 19+ 3-dose series) [facility] Start: 2006 Hepatitis B vaccine (1 of 3 - 19+ 3-dose series) Hepatitis B vaccine (1 of 3 - 19+ 3-dose series) [facility] Start: 2006 Third diphtheria, tetanus and acellular pertussis (DTaP) vaccination TDAP (ADULT) [facility] Start: 2006 Urine microalbumin profile DTAP,TDAP,TD (1 - Tdap) [facility] Start: 2005 Adult BMI Follow Up Plan Adult BMI Follow Up Plan [facility] Start: 2005 HEPATITIS C SCREENING HEPATITIS C SC REENING [facility] Start: 2005 Hepatitis C screening Hepatitis C sc reen [facility] Start: 2005 HIV SCREENING HIV SCREENING [facility] Start: 2002 HIV screening [facility] Start: 01-11-2000 Varicella vaccine (1 of 2 - 13+ 2-dose series) Varicella vaccine (1 of 2 - 13+ 2-dose series) [facility] Start: 1999 Adult depression screening assessment DEPRESSION SCREENING [facility] Start: 1999 Depression Screen Depression Screen [facility] Start: 01-11-1988 Varicella vaccine (1 of 2 - 2-dose childhood series) Varicella vaccine (1 of 2 - 2-dose childhood series) [facility] Start: 1987 HEPATITIS B (1 of 3 - 3-dose series) HEPATITIS B (1 of 3 - 3-dose series) [facility] Start: 1987 Hepatitis B vaccine (1 of 3 - 3-dose series) Hepatitis B vaccine (1 of 3 - 3-dose series) [facility] Start: 1987 Hepatitis C screening HEPATITI S C VIRUS SCREENING [facility] Start: 1987 Tetanus vaccination TETANUS [facility] CT Sinuses WO contrast [facility] Patient Education [facility] Work Phone: Patient referral [facility] Work Phone: End: 02-16-2024 Standard ECG ECG ECG STAT One Time for 1 Occurrences starting 02/16/2024 until 02/16/2024 [facility] Comment on above: One Time for 1 Occur rences starting 02/16/2024 until 02/16/2024 [facility] Immunizations Immunization Date Immunization Notes Care Provider Fa cility 06-09-2023 influenza, injectable, quadrivalent, contains preservative [facility] 06-09-2023 influenza virus vaccine, unspecified formulation Jennifer Moore MD Work Phone: [facility] 03-13-2023 influenza, injectable, quadrivalent, preservative free Jennifer Duran Other [facility] 03-31-2021 influenza, seasonal, injectable Jennifer Duran Other [facility] 07-02-2020 COVID-19 Vaccine Moderna - Documentation Purposes Only Jennifer Duran Other [facility] 06-04-2020 COVID-19 Vaccine Moderna - Documentation Purposes Only Jennifer Duran Other [facility] 12-10-2008 measles, mumps and rubella virus vaccine [facility]ilka [facility] NEGATED: Highlighted row has not occurred!03-23-2019 influenza, seasonal, injectable Patient Objection Jennifer Duran Other [facility] Payers Date Payer Category Payer Self-pay [id number] 2020 [employer] Managed Care - Other [id number] 2018 Unknown [id number]. [id number] .315 1987 Unknown [id number] 2.16.840.1.724249.3.579.2.593 1987 Unknown [id number] 2.16.840.1.947909.3.579.2.182 1987 Unknown [id number] 2.16.840.1.593125.3.579.2.1259 1987 Unknown [id number] 2.16.840.1.968396.3.579.2.1286 1987 Unknown [id number] 2.16.840.1.783718.3.579.2.128 1987 Unknown [id number] 2.16.840.1.730025.3.579.2.1286 1987 Unknown [id number] 2.840.1.947830.3.579.2.128 1987 Unknown [id number] 2.16840.1.598255.3.579.2.1286 1987 Unknown [id number] 2.16840.1.936175.3.579.2.128 1987 Unknown [id number] 2.16.840.1.320708.3.579.2.1286 1987 Unknown [id number] 2.16840.1.659438.3.579.2.128 1987 Unknown [id number] 2.16.840.1.257538.3.579.2.1286 1987 Unknown [id number] 2.16.840.1.665671.3.579.2.128 1987 Unknown [id number] 2.16.840.1.771345.3.579.2.727 1987 Unknown [id number] 2.16.840.1.920128.3.579.2.727 1987 Unknown [id number] 2.16.840.1.039101.3.579.2.727 1987 Unknown [id number] 2.16.840.1.261866.3.579.2.727 1987 Unknown [id number] 2.16.840.1.476334.3.579.2.727 1987 Unknown [id number] 2.16.840.1.375225.3.579.2.727 1987 Unknown [id number] 2.16.840.1.625696.3.579.2.727 1987 Unknown [id number] 2.16.840.1.160957.3.579.2.727 1987 Unknown [id number] 2.16.840.1.131734.3.579.2.718 1987 Unknown [id number] 2.16840.1.495589.3.579.2.718 1987 Unknown [id number] 2.16.840.1.425695.3.579.2.718 1987 Unknown [id number] 2.16.840.1.929935.3.579.2.173 1987 Unknown [id number] 2.16.840.1.796515.3.579.2.173 1987 Unknown [id number] 2.16.840.1.160846.3.579.2.174 1987 Unknown [id number] 2.16.840.1.780597.3.579.2.174 1987 Unknown [id number] 2.16.840.1.896912.3.579.2.174 1987 Unknown [id number] 2.16.840.1.856460.3.579.2.174 1987 Unknown [id number] 2.16.840.1.760275.3.579.2.983 1987 Unknown [id number] 2.16.840.1.761628.3.579.2.983 1987 Unknown [id number] 2.16.840.1.111214.3.579.2.983 1987 Unknown [id number] 2.16.840.1.285730.3.579.2.983 1987 Unknown [id number] 2.16840.1.053571.3.579.2.983 1987 Unknown [id number] 2.16840.1.083723.3.579.2.727 1987 Unknown [id number] 2.16840.1.634836.3.579.2.727 1987 Unknown [id number] 2.16840.1.861670.3.579.2.727 1987 Unknown [id number] 2.0.1.511675.3.579.2727 1987 Unknown [id number] 2.840.1.208632.3.579.2.727 1987 Unknown [id number] 2.840.1.565450.3.579.2.727 1987 Unknown [id number] 2.840.1.599987.3.579.2.727 1987 Unknown [id number] 2.840.1.844748.3.579.2.128 1987 Unknown [id number] 2.16840.1.351157.3.579.2.128 1987 Unknown [id number] 2.16840.1.547223.3.579.2.128 1987 Unknown [id number] 2.16840.1.155933.3.579.2.128 1987 Unknown [id number] 2.840.1.129448.3.579.2.128 1987 Unknown [id number] 2.16840.1.714157.3.579.2.1285 1987 Unknown [id number] 2.840.1.391615.3.579.2.1285 1987 Unknown [id number] 2.16840.1.024678.3.579.2.1285 1987 Unknown [id number] 2.840.1.285592.3.579.2.1285 1987 Unknown [id number] 2.840.1.251589.3.579.2.1285 1987 Unknown [id number] .0.1.168889.3.579.2.1285 1987 Unknown [id number] 2.0.1.634058.3.579.2.1285 1987 Unknown [id number] .0.1.765063.3.579.2.1285 1987 Unknown [id number] 2.0.1.494365.3.579.2.1285 1987 Unknown [id number] .0.1.522017.3.579.2.1285 1987 Unknown [id number] 2.840.1.222754.3.579.2.727 1959 Unknown [id number] Unknown [id number] Unknown [id number] Unknown [id number] 2.840.1.823576.3.579.2.531 Unknown [id number] 2840.1.522119.3.579.2.531 Unknown [id number] 2840.1.440325.3.579.2.531 Unknown [id number] 2840.1.383509.3.579.2.531 Unknown [id number] 2.840.1.512222.3.579.2.531 Social History Date Type Detail Facility Start: 09-14-2021 End: 05-25-2023 Tobacco smoking status NHIS Never smoked tobacco (finding) [facility] Start: 1985 Sex Assigned At Female F [facility] Tobacco smoking status Never [facility] Start: 05-30-2023 End: 10-01-2024 Sex Assigned At Female [facility] Other Start: 04-05-2018 End: 05-25-2023 Tobacco use and exposure Smokeless tobacco non-user [facility] Start: 10-27-2020 End: 09-04-2024 Alcohol intake Current drinker of alcohol (finding) [facility] Start: 04-05-2018 History SDOH Alcohol Comment socially [facility] Start: 1987 Sex Assigned At Not on file [facility] Start: 02-06-2022 End: 04-09-2022 Exposure to SARS-CoV-2 (event) Not sure [facility] History of tobacco use Passive smoker [facility] Start: 09-05-2023 End: 01-22-2024 Alcohol intake Not Asked [facility] Start: 05-30-2023 End: 10-01-2024 History of Social function [facility] How often to you hav e a drink containing alcohol? Monthly or less [facility] How many standard drinks containing alcohol do you have on a typical day? 1 or 2 [facility] How often do you hav e 6 or more drinks on 1 occasion? Less than monthly [facility] Start: 05-30-2023 End: 07-14-2024 Alcohol Comment social [facility] Start: 04-03-2024 Alcohol Comment monthly [facility] Start: 01-14-2015 End: 09-03-2024 Sex Female (finding[facility] Start: 06-27-2024 End: 10-01-2024 Alcoholic beverage intake Ex-drinker (finding) [facility] Tobacco [facility] Comment on above: Denies Tobacco smoking status No Smokin g Status Entered [facility] Goals Date Patient Goal Desired Activity /State Functional Status Date Assessment Result Facility 08-10-2024 Functional Status N/A [facility] 08-05-2024 Functional Status N/A [facility] 08-05-2024 Functional Status N/A [facility] 08-02-2024 Functional Status N/A [facility] 06-27-2024 Functional Status N/A [facility] 06-24-2024 Functional Status N/A [facility] 02-13-2024 Functional Status N/A [facility] 09-29-2023 Functional Status N/A [facility] 09-26-2023 Functional Status N/A [facility] 07-31-2023 Functional Status N/A [facility] 04-24-2023 Functional Status N/A [facility] 03-29-2023 Functional status Patient at Baseline [facility] Work Phone: 12-04-2021 Functional Status N/A [facility] Mental Status Date Assessment Result Facility 03-29-2023 Cognitive function Cognitive Sta tus Patient at Baseline [facility] Work Phone: Clinical Notes [...] these instructions at home: Medicines ??? Take ubda-wwo-xqvawrb and prescription medicines only as told by [...] Reviewed: 03/16/2023 [employer] Patient Education ? 2023 [employer] [facility] 10-01-2024 Miscellaneous Notes Formattin g of this note might be different from the original. Contract: 166 Dipak @[employer] called regarding right sided abdominal pain @[facility] OC166 I numerically paged the RESIDENTIAL YOUTH COUNSELOR ONC to [facility] OC166 RESIDENTIAL YOUTH COUNSELOR ONC called back & I transferred them to [employer] documented in this encounter [facility] 10-01-2024 Telephone encount er Note Contract: 166 Dipak @[employer] called regarding right sided abdominal pain @[facility] 10-01-2024 Telephone encount er Note OC166 I numerically paged the RESIDENTIAL YOUTH COUNSELOR ONC to [facility] 10-01-2024 Telephone encount er Note OC166 RESIDENTIAL YOUTH COUNSELOR ONC called back & I transferred them to [employer] [facility] 09-12-2024 Miscellaneous Notes Formattin g of this note might be different from the original. [employer]ator 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 Patient wanted to reschedule her appointment due to the weather ( Storms). 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 Patient wanted to reschedule her appointment due to the weather ( Storms). [facility] 09-04-2024 Miscellaneous Notes Formattin g of this note might be different from the original. Contract: 166 re Abd Pain, Nausea Dr Aparicio Numeric page sent to PA to call ER documented in this encounter [facility] 09-04-2024 Telephone encount er Note Contract: 166 re Abd Pain, Nausea Dr Aparicio [facility] 09-04-2024 Telephone encount er Note Numeric page sent to PA to call ER [facility] 08-11-2024 Hospital Discharg e instructions Patient Education [...] your skin (aromatherapy). Other treatments may include: Myhf-mqj-ljvdqka or prescription medicines. Color, light, or sound therapy. Local electrical stimulation. The electrical pulses help to relieve pain by temporarily stopping the nerve impulses that cause you to feel pain. Injections. These deliver numbing or pain-relieving medicines into the spine or the area of pain. Medicines Take eltb-wwi-wlisndk and prescription medicines only as told by your health care provider. Ask your health care provider if the medicine prescribed to you: ?Requires you to avoid driving or using machinery. ?Can cause constipation. You may need to take these actions to prevent or treat constipation: ?Drink enough fluid to keep your urine pale yellow. ?Take qxij-ywh-anwvuzp or prescription medicines. ?Eat foods that are [...] the National Suicide Prevention Lifeline at or 750. This is open 24 hours a day. Text the Crisis Text Line at 272069. This information is not intended to replace advice given to you by your health care provider. Make sure you discuss any questions you have with your health care provider. Document Revised: 01/19/2023 Document Reviewed: 12/22/2022 [employer] Patient Education 2023 [employer]. Follow Up Care 08/10/2024 19:36:46 With:Rose Royal Address: [address] [address] [facility] (1) When:08/13/2024 With:XXXX NONE Address: [place] When:08/13/2024 Comments:Call to schedule a follow-up appointment with your surgeon for further management of care. Return to the ED with any new or worsening symptoms. [facility] 08-10-2024 Note ED Patient Education Note Mental [...] skin (aromatherapy). Other treatments may include: ??? Xmrp-mxo-uvfiyrz or prescription medicines. ??? Color, light, or sound therapy. ??? Local electrical stimulation. The electrical pulses help to relieve pain by temporarily stopping the nerve impulses that cause you to feel pain. ??? Injections. These deliver numbing or pain-relieving medicines into the spine or the area of pain. Medicines ??? Take pbxu-icu-ayrbntb and prescription medicines only as told by your health care provider. ??? Ask your health care provider if the medicine prescribed to you: ? Requires you to avoid driving or using machinery. ? Can cause constipation. You may need to take these actions to prevent or treat constipation: ? Drink enough fluid to keep your urine pale yellow. ? Take ijsf-oha-jpkrhvq or prescription medicines. ? Eat foods that [...] the National Suicide Prevention Lifeline at or 934. This is open 24 hours a day. ??? Text the Crisis Text Line at 795466. This information is not intended to replace advice given to you by your health care provider. Make sure you discuss any questions you have with your health care provider. Document Revised: 01/19/2023 Document Reviewed: 12/22/2022 [employer] Patient Education ? 2023 [employer] [facility] 08-10-2024 Evaluation + Plan note Extrac flo [...] Panel Lipase Level UA with Cult Rflx [facility] 02-23-2025 Hospital Discharge instructions Patient Education 08/05/2024 19:29:44 Abdominal Pain, Adult, Ssfk-tq-Aruu Abdominal Pain, Adult Many things can cause belly (abdominal) pain. In most cases, belly pain is not a serious problem and can be watched and treated at home. But in some cases, it can be serious. Your doctor will try to find the cause of your belly pain. Follow these instructions at home: Medicines Take zycb-hye-yritzwy and prescription medicines only as told by [...] provider. Document Revised: 03/16/2023 Document Reviewed: 03/16/2023 [employer] Patient Education 2023 [employer]. Follow Up Care 08/05/2024 18:01:40 With:Pain Clinic: [facility] [phone] Address:Unknown When:08/08/2024 19:18:57 Comments:Call for diagnosis based follow up With:Savannah Petersen Address: [address] [place] [phone]- Business (1) When:08/08/2024 19:18:52 Comments:Call Dr for diagnosis based follow up [facility] [id number] NoteED Patient Education Note Gastroenterology Abdominal Pain, Adult Many things can cause belly (abdominal) pain. In most cases, belly pain is not a serious problem and can be watched and treated at home. But in some cases, it can be serious. Your doctor will try to find the cause of your belly pain. Follow these instructions at home: Medicines ??? Take cxxz-pth-utppljj and prescription medicines only as told by [...] provider. Document Revised: 03/16/2023 Document Reviewed: 03/16/2023 [employer] Patient Education ? 2023 [employer] 08-05-2024 Hospital Discharge instructions Patient Education [...] your skin (aromatherapy). Other treatments may include: Pcfw-sdj-sfjykvm or prescription medicines. Color, light, or sound therapy. Local electrical stimulation. The electrical pulses help to relieve pain by temporarily stopping the nerve impulses that cause you to feel pain. Injections. These deliver numbing or pain-relieving medicines into the spine or the area of pain. Medicines Take zcez-ulf-bficjok and prescription medicines only as told by your health care provider. Ask your health care provider if the medicine prescribed to you: ?Requires you to avoid driving or using machinery. ?Can cause constipation. You may need to take these actions to prevent or treat constipation: ?Drink enough fluid to keep your urine pale yellow. ?Take cxue-xxy-hifpnhc or prescription medicines. ?Eat foods that are [...] the National Suicide Prevention Lifeline at or 853. This is open 24 hours a day. Text the Crisis Text Line at 079031. This information is not intended to replace advice given to you by your health care provider. Make sure you discuss any questions you have with your health care provider. Document Revised: 01/19/2023 Document Reviewed: 12/22/2022 [employer] Patient Education 2023 [employer]. Follow Up Care 08/05/2024 11:07:17 With:XXXX NONE Address: [place] When:08/08/2024 11:25:55 Comments:Follow-up with your OBGYN surgeon [facility] 02-23-2025 NoteED Patient Education Note Mental [...] skin (aromatherapy). Other treatments may include: ??? Fdty-jff-jngmtgp or prescription medicines. ??? Color, light, or sound therapy. ??? Local electrical stimulation. The electrical pulses help to relieve pain by temporarily stopping the nerve impulses that cause you to feel pain. ??? Injections. These deliver numbing or pain-relieving medicines into the spine or the area of pain. Medicines ??? Take vhwd-wxh-gleffjl and prescription medicines only as told by your health care provider. ??? Ask your health care provider if the medicine prescribed to you: ? Requires you to avoid driving or using machinery. ? Can cause constipation. You may need to take these actions to prevent or treat constipation: ? Drink enough fluid to keep your urine pale yellow. ? Take pamh-qqp-gypjkvh or prescription medicines. ? Eat foods that [...] the National Suicide Prevention Lifeline at or 318. This is open 24 hours aday. ??? Text the Crisis Text Line at 457083. This information is not intended to replace advice given to you by your health care provider. Make sure you discuss any questions you have with your health care provider. Document Revised: 01/19/2023 Document Reviewed: 12/22/2022 Elsevier Patient Education ? 2023 [employer] 08-02-2024 Hospital Discharge instructions Patient Education [...] provider gives to you. In general: Take iphr-iwm-jtovtze and prescription medicines only as told by [...] provider. Document Revised: 10/08/2021 Document Reviewed: 10/08/2021 [employer] Patient Education 2023 [employer]. 08/02/2024 19:06:33 Abdominal Pain, Adult Abdominal Pain, [...] Follow these instructions at home: Medicines Take mqta-ywo-atswaco and prescription medicines only as told by [...] provider. Document Revised: 03/16/2023 Document Reviewed: 03/16/2023 [employer] Patient Education 2023 [employer]. Follow Up Care 08/02/2024 14:42:18 With:Make sure to follow-up with your RESIDENTIAL YOUTH COUNSELOR at [facility]. Return to the emergency room if your pain gets worse or any new symptoms. Address:Unknown When:08/05/2024 18:40:00 [facility] 02-20-2025 NoteED Patient Education Note Gastroenterology [...] these instructions at home: Medicines ??? Take jzil-gzi-mdmgmbu and prescription medicines only as told by [...] provider. Document Revised: 03/16/2023 Document Reviewed: 03/16/2023 [employer]ax Patient Education ? 2023 [employer]. Obstetrics and Gynecology Pelvic Mass, Female A [...] gives to you. In general: ??? Take kfnb-udw-anprxjg and prescription medicines only as told by [...] tolerate prescribed medicines. (more content not included)... [facility]02-20-2025 Evaluation + Plan noteExtracted from: Title:ED [...] Panel Lipase Level UA with Cult Rflx [facility] [id number] Emergency department Note* Kandi Cruz RN - 08/01/2024 7:53 PM EST Pt in no distress at discharge. Discharge instructions given to and explained to pt. Pt verbalized understanding and denies needs and questions at this time. Pt ambulated with steady gait at discharge. [facility]02-19-2025 Emergency department Note* Kandi Cruz RN [...] hospitals over the last 3 weeks. (- [place], 2- [facility] [place], 2-8 [facility], 2- [place], - [facility], - [facility], - [facility], - [facility], - [facility]). She is currently on Hydrocodone and Toradol. Patient states she is only here for pain control. She states a relative drove her to ER but they are not in room. Patient states the only medications that work are Fentanyl and Dilaudid. She states she is allergic to Morphine. She is suppose to have another surgery with [facility] but is waiting for opening. She states she was referred to chronic pain management but they have not seen her yet. She states RESIDENTIAL YOUTH COUNSELOR tells her to go to ER whenever [...] by Nasal route once for 1 dose. [place] into the nose as directed. Call 911. [...] Insecurity: No Food Insecurity (07/27/2024) [facility] Within the past 12 months [...] file Social Connections: Unknown (03/22/2023) Received from [facility] Family and Community Support Help with Day-to-Day Activities: Not on file Lonely or Isolated: Not on file Personal Safety: Unknown (03/22/2023) Received from [facility] Abuse Screen Unsafe at Home or Work/School: Not on file Feels Threatened by Someone?: Not on file Does Anyone Keep You from Contacting Others or Doint Things Outside the Home?: Not on file Physical Sign of Abuse Present: Not on file Housing Stability: Unknown (03/22/2023) Received from [facility] Housing Stability Current Living Arrangements: Not [...] YELLOW YELLOW Appearance, Urine CLEAR CLEAR Specific [place], Urine 1.010 1.010 - 1.025 PH URINE [...] medication unless I know she has a mobile lounge driver. She just wanted to leave. I told her I can give her nonnarcotic medication and she refused. I encourage her to try to talk with RESIDENTIAL YOUTH COUNSELOR about a plan go forward to control [...] Konstantin Jain MD 08/01/241952 documented in this [facility]02-19-2025 Hospital Discharge instructions* Discharge Instructions* Konstantin Jain MD - 08/01/2024 7:43 PM EST Call your RESIDENTIAL YOUTH COUNSELOR and Chronic pain management tomorrow for follow up. * Attachments The following attachments cannot be sent through Care Everywhere. * Chronic Pain (Danish) documented in this [facility]02-19-2025 Emergency department Note* Kandi Cruz RN - 08/01/2024 7:22 PM EST Pt sts her step son brought her to ER and did not drive herself [facility]02-19-2025 Physician Emergency department Note* Konstantin Jain MD - 08/01/2024 7:20 PM EST Emergency [facility] Service Date:.08/01/24 PCP: No primary [...] last 3 weeks. (2-26 [place], 2-24 [facility] [place], 2-8 [facility], 2-1 [place], 1-31 [facility], 1-29 [facility], 1-25 [facility], 1-15 [facility], 07-10 [facility]). She is currently on Hydrocodone and Toradol. Patient states she is only here for pain control. She states a relative drove her to ER but they are not in room. Patient states the only medications that work are Fentanyl and Dilaudid. She states she is allergic to Morphine. She is suppose to have another surgery with [facility] but is waiting for opening. She states she was referred to chronic pain management but they have not seen her yet. She states RESIDENTIAL YOUTH COUNSELOR tells her to go to ER whenever [...] by Nasal route once for 1 dose. [place] into the nose as directed. Call 911. [...] Insecurity: No Food Insecurity (07/27/2024) Received from [facility] Hunger Screening Within the past 12 months [...] file Social Connections: Unknown (03/22/2023) Received from [facility] Family and Community Support Help with Day-to-Day Activities: Not on file Lonely or Isolated: Not on file Personal Safety: Unknown (03/22/2023) Received from [facility] Abuse Screen Unsafe at Home or Work/School: Not on file Feels Threatened by Someone?: Not on file Does Anyone Keep You from Contacting Others or Doint Things Outside the Home?: Not on file Physical Sign of Abuse Present: Not on file Housing Stability: Unknown (03/22/2023) Received from [facility] Housing Stability Current Living Arrangements: Not [...] YELLOW YELLOW Appearance, Urine CLEAR CLEAR Specific [place], Urine 1.010 1.010 - 1.025 PH URINE [...] medication unless I know she has a mobile lounge driver. She just wanted to leave. I told her I can give her nonnarcotic medication and she refused. I encourage her to try to talk with RESIDENTIAL YOUTH COUNSELOR about a plan go forward to control [...] information. . . Konstantin Jain MD 08/01/241952 [facility]02-01-2025 Emergency department Note* Yakelin Calvert RN - 07/14/2024 7:29 PM EST Dc paperwork given and explained. Voices understanding. Voices no further needs at this time. Pt ambulated to hospital exit without difficulty. Ride here and waiting in hospital waiting room. [facility]02-01-2025 Emergency department Note* Yakelin Calvert RN - 07/14/2024 7:29 PM EST Dc paperwork given and explained. Voices understanding. Voices no further needs at this time. Pt ambulated to hospital exit without difficulty. Ride here and waiting in hospital waiting room. * Donya Romano MD - 07/14/2024 6:25 PM EST Emergency Department Report [facility] Service Date:.07/14/24 PCP: No primary [...] by Nasal route once for 1 dose. Cam[place] into the nose as directed. Call 911. [...] Insecurity: No Food Insecurity (07/13/2024) Received from [facility] Hunger Screening Within the past 12 months [...] file Social Connections: Unknown (03/22/2023) Received from [facility] Family and Community Support Help with Day-to-Day Activities: Not on file Lonely or Isolated: Not on file Intimate Partner Violence: Unknown (03/22/2023) Received from [facility] Abuse Screen Unsafe at Home or Work/School: Not on file Feels Threatened by Someone?: Not on file Does Anyone Keep You from Contacting Others or Doint Things Outside the Home?: Not on file Physical Sign of Abuse Present: Not on file Housing Stability: Unknown (03/22/2023) Received from [facility] Housing Stability Current Living Arrangements: Not [...] Romano MD 07/14/24 1839 [facility] Emergency department Note* Donya Romano MD - 07/14/2024 6:25 PM EST Emergency Department Report [facility] Service Date:.07/14/24 PCP: No primary [...] by Nasal route once for 1 dose. [place] into the nose as directed. Call 911. [...] Insecurity: No Food Insecurity (07/13/2024) Received from [facility] Hunger Screening Within the past 12 months [...] file Social Connections: Unknown (03/22/2023) Received from [facility] Family and Community Support Help with Day-to-Day Activities: Not on file Lonely or Isolated: Not on file Intimate Partner Violence: Unknown (03/22/2023) Received from [facility] Abuse Screen Unsafe at Home or Work/School: Not on file Feels Threatened by Someone?: Not on file Does Anyone Keep You from Contacting Others or Doint Things Outside the Home?: Not on file Physical Sign of Abuse Present: Not on file Housing Stability: Unknown (03/22/2023) Received from [facility] Housing Stability Current Living Arrangements: Not [...] information. . Donya Romano MD 07/14/24 1839 [facility]01-30-2025 Hospital Discharge instructions* Discharge Instructions* Shalonda Bacon MD - 07/12/2024 1:41 AM EST Continue current medications as prescribed. Use Paoli in place of Tylenol for pain not controlled with Tylenol. Flexeril every 8 hours to see if this helps. Heat or ice for 5 to 10-minute intervals as desired for comfort. May use kpgp-nnz-bcehwmz product such as IcyHot Biofreeze or similar as needed and directed. Follow-up with your RESIDENTIAL YOUTH COUNSELOR provider soon as possible. Please return immediately for anyacute concerns * Attachments The following attachments cannot be sent through Care Everywhere. * Abdominal Pain (Danish) [facility] NoteEducation Materials Mental and Behavioral Health Chronic [...] skin (aromatherapy). Other treatments may include: ? Ljnp-oea-ivyoluy or prescription medicines. ? Color, light, or sound therapy. ? Local electrical stimulation. The electrical pulses help to relieve pain by temporarily stopping the nerve impulses that cause you to feel pain. ? Injections. These deliver numbing or pain-relieving medicines into the spine or the area of pain. Medicines ? Take ihcy-kai-jaapdki and prescription medicines only as told by your health care provider. ? Ask your health care provider if the medicine prescribed to you: ? Requires you to avoid driving or using machinery. ? Can cause constipation. You may need to take these actions to prevent or treat constipation: ? Drink enough fluid to keep your urine pale yellow. ? Take fsiq-dyx-yiythmr or prescription medicines. ? Eat foods that [...] the National Suicide Prevention Lifeline at or 941. This is open 24 hours a day. ? Text the Crisis Text Line at 908372. This information is not intended to replace advice given to you by your health care provider. Make sure you discuss any questions you have with your health care provider. Document Revised: 01/19/2023 Document Reviewed: 12/22/2022 [employer] Patient Education ? 2023 [id number] Note Education Materials Gastroenterology Abdominal Pain, Adult [...] these instructions at home: Medicines ? Take nroi-ggt-uvanjgt and prescription medicines only as told by [...] provider. Document Revised: 03/16/2023 Document Reviewed: 03/16/2023 [employer] Patient Education ? 2023 [employer]. Mental and Behavioral Health Chronic Pain, Adult [...] skin (aromatherapy). Other treatments may include: ? Pgvc-yqd-nztdajv or prescription medicines. ? Color, light, or sound therapy. ? Local electrical stimulation. The electrical pulses help to relieve pain by temporarily stopping the nerve impulses that cause you to feel pain. ? Injections. These deliver numbing or pain-relieving medicines into the spine or the area of pain. Medicines ? Take lbwx-dxu-unmrwzy and prescription medicines only as told by your health care provider. ? Ask your health care provider if the medicine prescribed to you: ? Requires you to avoid driving or using machinery. ? Can cause constipation. You may need to take these actions to prevent or treat constipation: ? Drink enough fluid to keep your urine pale yellow. ? Take uveq-aas-gdikbxi or prescription medicines. ? Eat foods that [...] to help manage chron (more content not included)...[id number] Evaluation + Plan noteExtracted from: Title:ED Note [...] Panel Lipase Level UA with Cult Rflx [facility] 01-16-2025 Hospital Discharge instructions Patient Education 06/28/2024 01:38:52 Abdominal Pain, Adult, Utsq-tu-Tdmi Abdominal Pain, Adult Many things can cause belly (abdominal) pain. In most cases, belly pain is not a serious problem and can be watched and treated at home. But in some cases, it can be serious. Your doctor will try to find the cause of your belly pain. Follow these instructions at home: Medicines Take jhdg-yem-adurmfv and prescription medicines only as told by [...] provider. Document Revised: 03/16/2023 Document Reviewed: 03/16/2023 [employer] Patient Education 2023 [employer]. Follow Up Care 06/27/2024 21:47:06 With:[employer] Address: [facility] [place] [address] [facility] (1) When:07/01/2024 Comments:Please follow-up with your primary care doctor and ASSISTED LIVING ADMINISTRATOR for further evaluation and management. Return to the ED for any new or worsening symptoms. With:XXXX NONE Address: [place] When:Within 3 Day(s) [facility] 01-16-2025 NoteED Patient Education Note Gastroenterology Abdominal Pain, Adult Many things can cause belly (abdominal) pain. In most cases, belly pain is not a serious problem and can be watched and treated at home. But in some cases, it can be serious. Your doctor will try to find the cause of your belly pain. Follow these instructions at home: Medicines ??? Take uixy-ppq-pzgqlym and prescription medicines only as told by [...] Reviewed: 03/16/2023 Elsevier Patient Education ? 2023 [employer] 06-27-2024 Hospital Discharge instructions* Discharge Instructions* Randee Richardson MD - 06/27/2024 3:16 PM EST Please call your ASSISTED LIVING ADMINISTRATOR and schedule follow-up visit. Continue taking your pain medications as prescribed. Return to the ER for any worsening symptoms or concerns * Attachments The following attachments cannot be sent through Care Everywhere. * Abdominal Pain (Danish) [facility] Hospital Discharge instructions Patient Education 06/25/2024 02:47:57 [...] Follow these instructions at home: Medicines Take bunh-ryr-aorhkej and prescription medicines only as told by [...] provider. Document Revised: 03/16/2023 Document Reviewed: 03/16/2023 [employer] Patient Education 2023 [employer]. Follow Up Care 06/24/2024 19:25:17 With:Ernie CHIRINOS Address: [address] [place], [place] [id number] Business (1) When:06/28/2024 [facility] 01-13-2025 NoteED Patient Education Note Gastroenterology [...] these instructions at home: Medicines ??? Take vmse-qhw-oenloya and prescription medicines only as told by [...] provider. Document Revised: 03/16/2023 Document Reviewed: 03/16/2023 [employer] Patient Education ? 2023 [employer] 06-24-2024 Evaluation + Plan noteExtracted from: Title:ED Note Author:Ritesh Heath DO Date :06/24/24 Abdominal pain, acute (R10.9 : Unspecified abdominal pain) Ordered: acetaminophen-oxycodone, 1 tab(s), Oral, q8hr for 3 day(s), 9 tab(s), Refill(s) 0, [facility]/pharmacy #[id number], 165, cm, 06/24/24 19:33:00 EST, [...] Beta Hcg Qual UA with Cult Rflx [facility] 12-30-2024 NoteEducation Materials Obstetrics and Gynecology [...] Follow these instructions at home: ? Take uvqw-emw-gvyjjta and prescription medicines only as told by [...] provider. Document Revised: 10/31/2020 Document Reviewed: 11/06/2020 [employer] Patient Education ? 2023 [employer].[facility] [id number] Miscellaneous Notes* Telephone Encounter - Shefali Rodriguez - 06/11/2024 8:57 AM EST [employer] left voicemail to schedule a H/F with Kendra in [place]. 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 [facility] [employer] [id number] Miscellaneous Notes* Telephone Encounter - Isabell Lentz - 06/09/2024 8:05 PM EST Contract: [id number] [facility] [address] [place] re abnormal CT, post-op Relayed info to Dr Woo on cell and transferred documented [facility]Sub[facility] [id number] Telephone encounter Note* Telephone Encounter - Isabell Lentz - 06/09/2024 8:05 PM EST Contract: [id number] [place] re abnormal CT, post-op Relayed info to Dr Woo on cell and transferred [facility] [id number] NoteEducation Materials Obstetrics and Gynecology Endometriosis Follow-up with your ASSISTED LIVING ADMINISTRATOR to review this emergency department visit and [...] these instructions at home: Medicines ? Take ziti-dhr-zuvnxdk and prescription medicines only as told by your health care provider. ? Ask your health care provider if the medicine prescribed to you: ? Requires you to avoid driving or using machinery. ? Can cause constipation. You may need to take these actions to prevent or treat constipation: ? Drink enough fluid to keep your urine pale yellow. ? Take ifyx-mnp-kjybttj or prescription medicines. ? Eat foods that [...] important. Where to find more information ? [employer]: www.acog.org ? [...] vomiting, or you (more content not included)... [id number] Emergency department Note* Davi Rivas, DO - 03/03/2024 4:47 PM EDT Emergency Department Report [facility] Service Date:.03/03/24 PCP: No primary [...] for months. Patient states she has seen ASSISTED LIVING ADMINISTRATOR specialist in [place], Dr. Mendoza, to have her uterus/hysterectomy secondary to endometriosis. Patient says that she then b etween PCPs at this point. Patient does have a OBGYN in [facility], Dr. Berrios. Patient states she is [...] by Nasal route once for 1 dose. [place] into the nose as directed. Call 911. [...] Food Insecurity (01/27/2024) Received from [facility] Hunger Screening Within the past 12 months [...] file Social Connections: Unknown (03/22/2023) Received from [facility] Family and Community Support Help with Day-to-Day Activities: Not on file Lonely or Isolated: Not on file Intimate Partner Violence: Unknown (03/22/2023) Received from [facility] Abuse Screen Unsafe at Home or Work/School: Not on file Feels Threatened by Someone?: Not on file Does Anyone Keep You from Contacting Others or Doint Things Outside the Home?: Not on file Physical Sign of Abuse Present: Not on file Housing Stability: Unknown (03/22/2023) Received from [facility] Housing Stability Current Living Arrangements: Not [...] to palpation. GI: Soft, patient does have ovuh-rn-xayxksoi tenderness to palpation over lower quadrant, no [...] Orders Placed This Encounter AMB REFERRAL TO OB-RESIDENTIAL YOUTH COUNSELOR AMB REFERRAL TO CHRONIC PAIN CLINIC hydroCODone-acetaminophen [...] YELLOW YELLOW APPEARANCE, URINE CLEAR CLEAR Specific [place], Urine 1.010 1.010 - 1.025 PH URINE [...] have definitive treatment from Dr. Aparicio's in [place] for her endometriosis and hysterectomy which patient [...] ED w/ steady gait documented in this [facility]09-[facility]-2024 Physician Emergency department Note* Davi Rivas DO - 03/03/2024 4:47 PM EDT Emergency Department Report [facility] Service Date:.03/03/24 PCP: No primary [...] for months. Patient states she has seen ASSISTED LIVING ADMINISTRATOR specialist in [place], Dr. Herrs, to have her uterus/hysterectomy secondary to endometriosis. Patient says that she then b etween PCPs at this point. Patient does have a OBGYN in [facility], Dr. Berrios. Patient states she is [...] by Nasal route once for 1 dose. [place] into the nose as directed. Call 911. [...] Food Insecurity (01/27/2024) Received from [facility] Hunger Screening Within the past 12 months [...] file Social Connections: Unknown (03/22/2023) Received from [facility] Family and Community Support Help with Day-to-Day Activities: Not on file Lonely or Isolated: Not on file Intimate Partner Violence: Unknown (03/22/2023) Received from [facility] Abuse Screen Unsafe at Home or Work/School: Not on file Feels Threatened by Someone?: Not on file Does Anyone Keep You from Contacting Others or Doint Things Outside the Home?: Not on file Physical Sign of Abuse Present: Not on file Housing Stability: Unknown (03/22/2023) Received from [facility] Housing Stability Current Living Arrangements: Not [...] to palpation. GI: Soft, patient does have gjam-yh-xwdrptpm tenderness to palpation over lower quadrant, no [...] Orders Placed This Encounter AMB REFERRAL TO OB-RESIDENTIAL YOUTH COUNSELOR AMB REFERRAL TO CHRONIC PAIN CLINIC hydroCODone-acetaminophen [...] YELLOW YELLOW APPEARANCE, URINE CLEAR CLEAR Specific [place], Urine 1.010 1.010 - 1.025 PH URINE [...] have definitive treatment from Dr. Aparicio's in [place] for her endometriosis and hysterectomy which patient [...] . . Davi Rivas DO 03/03/24 1706 [facility]09-21-2024 Emergency department Note* Geri Burciaga RN [...] ambulatory out of ED w/ steady gait [facility]09-21-2024 Hospital Discharge instructions* Discharge Instructions* Davi Rivas DO - 03/03/2024 4:[address] Wilson, your OBGYN in [place] to see if your appointment may be moved up. Call Dr. Braden in [place] on Tuesday to see if they will [...] to you as well. [facility] Emergency [facility] Note* Ashley Delcid MD - 02/24/2024 11:24 PM EDT Emergency Department Report [facility] Service Date:.02/25/24 PCP: No primary [...] has a history of endometriosis. Follows with hims manager in [place]. States she is waitingto be scheduled for a total hysterectomy. Last saw them in November as per records. She explains they just have not scheduled it yet but she is in constant pain. Review of records shows similar presentation at outlying facilities. Is here in [place] helping grandmother pack up to move to [place] with the rest of the family Review [...] Spasms Spasms Atenolol Other Reaction(s): Dr. Cantu/ Jusitn Octacosanohayder Phenothiazines Anxiety and Itching Other Reaction(s): [...] by Nasal route once for 1 dose. [place] into the nose as directed. Call 911. [...] Food Insecurity (01/27/2024) Received from [facility] Within the past 12 months [...] file Social Connections: Unknown (03/22/2023) Received from [facility] Family and Community Support Help with Day-to-Day Activities: Not on file Lonely or Isolated: Not on file Intimate Partner Violence: Unknown (03/22/2023) Received from [facility] Abuse Screen Unsafe at Home or Work/School: Not on file Feels Threatened by Someone?: Not on file Does Anyone Keep You from Contacting Others or Doint Things Outside the Home?: Not on file Physical Sign of Abuse Present: Not on file Housing Stability: Unknown (03/22/2023) Received from [facility] Housing Stability Current Living Arrangements: Not [...] YELLOW YELLOW APPEARANCE, URINE CLEAR CLEAR Specific [place], Urine 1.010 1.010 - 1.025 PH URINE [...] I offered to contact her physician in [place] and see if I could transfer her [...] like her to call her Doctor in [place] for possible transfer. Pt refuses. Pt states [...] her home if discharged documented in this [facility]09-13-2024 Physician Emergency department Note* Ashley Delcid MD - 02/24/2024 11:24 PM EDT Emergency Department Report [facility] Service Date:.02/25/24 PCP: No primary [...] has a history of endometriosis. Follows with hims manager in [place]. States she is waitingto be scheduled for a total hysterectomy. Last saw them in November as per records. She explains they just have not scheduled it yet but she is in constant pain. Review of records shows similar presentation at outlying facilities. Is here in [place] helping grandmother pack up to move to [place] with the rest of the family Review [...] by Nasal route once for 1 dose. Camden into the nose as directed. Call 911. [...] Food Insecurity (01/27/2024) Received from [facility] Within the past 12 months [...] file Social Connections: Unknown (03/22/2023) Received from [facility] Family and Community Support Help with Day-to-Day Activities: Not on file Lonely or Isolated: Not on file Intimate Partner Violence: Unknown (03/22/2023) Received from [facility] Abuse Screen Unsafe at Home or Work/School: Not on file Feels Threatened by Someone?: Not on file Does Anyone Keep You from Contacting Others or Doint Things Outside the Home?: Not on file Physical Sign of Abuse Present: Not on file Housing Stability: Unknown (03/22/2023) Received from [facility] Housing Stability Current Living Arrangements: Not [...] YELLOW YELLOW APPEARANCE, URINE CLEAR CLEAR Specific [place], Urine 1.010 1.010 - 1.025 PH URINE [...] I offered to contact her physician in [place] and see if I could transfer her [...] information. . Ashley Delcid MD 02/25/24 0355 [facility]09-13-[facility]24 Emergency department Note* Geri Burciaga RN - 02/24/2024 11:21 PM EDT AMA form signed. Pt aware of risks and refuses hospital admission. Pt states grandmother is at facility to transport her home. Denies further needs at this time. Pt is a&o respirations are even and unlabored. Pt ambulatory out of ED w/ steady gait [facility]09-13-2024 Emergency department Note* Geri Burciaga RN [...] like her to call her Doctor in [place] for possible transfer. Pt refuses. Pt states she does not want to be admitted anywhere and states will sign AMA form and call her pcp in the morning. [facility]09-13-2024 Emergency department Note* Geri Burciaga RN - 02/24/2024 9:46 PM EDT Pt states pain has not improved after dilaudid administration. Dr. Delcid made aware [facility]09-13-2024 Emergency department Note* Geri Burciaga RN - 02/24/2024 9:20 PM EDT Pt states her grandmother will transport her home if discharged [facility]09-05-2024 Emergency department Note* Una Levy RN - 02/16/2024 5:12 PM EDT Discharge instructions provided. Patient verbalized understanding. Denies any questions or concernsprior to discharge. Ambulatory out of ED with Rx X2. [facility]09-05-2024 Emergency department Note* Una Levy RN [...] 02/16/2024 1:48 PM EDT Emergency Department Report [facility] Service Date:.02/16/24 PCP: No primary [...] by Nasal route once for 1 dose. [place] into the nose as directed. Call 911. [...] Food Insecurity (01/27/2024) Received from [facility] Within the past 12 months [...] file Social Connections: Unknown (03/22/2023) Received from [facility] Family and Community Support Help with Day-to-Day Activities: Not on file Lonely or Isolated: Not on file Intimate Partner Violence: Unknown (03/22/2023) Received from [facility] Abuse Screen Unsafe at Home or Work/School: Not on file Feels Threatened by Someone?: Not on file Does Anyone Keep You from Contacting Others or Doint Things Outside the Home?: Not on file Physical Sign of Abuse Present: Not on file Housing Stability: Unknown (03/22/2023) Received from [facility] Housing Stability Current Living Arrangements: Not on file Potentially Unsafe Housing Conditions: Not on file Physical Exam: Physical Exam CONST: -Well-developed well-nourished ; -In no acute distress. -Vitals reviewed. EYES: -EOM intact, KOLBY: -Sclera normal and conjunctiva: clear bilaterally. ENT: - Normal pharynx pink and moist. NECK: -Supple (tlhg-zj-yiaio). CARD: -Rate and rhythm: Regular -Murmurs: No [...] by Nasal route once for 1 dose. Cam[place] into the nose as directed. Call 911. [...] information. . . Jennifer Moore MD 02/16/24 6498 documented in this [facility]09-05-2024 Hospital Discharge instructions* Discharge Instructions* Jennifer Moore MD - 02/16/2024 4:52 PM EDT Tylenol for moderate pain. Full liquid diet for 2 days. * Attachments The following attachments cannot be sent through Care Everywhere. * Abdominal Pain (Danish) documented in this [facility]09-05-2024 Emergency department Note* Una Levy RN - 02/16/2024 3:40 PM EDT Patient states that pain is getting worse again. Dr Moore notified. No new orders received at this time. States he is waiting for CT results. Patient updated on plan. [facility]09-05-2024 Emergency department Note* Tangela Guajardo RN - 02/16/2024 3:10 PM EDT Pt taken to CT scan [facility]09-05-2024 Physician Emergency department Note* Jennifer Moore MD - 02/16/2024 1:48 PM EDT Emergency Department Report [facility] Service Date:.02/16/24 PCP: No primary [...] by Nasal route once for 1 dose. Cam[place] into the nose as directed. Call 911. [...] Food Insecurity (01/27/2024) Received from [facility] Within the past 12 months [...] file Social Connections: Unknown (03/22/2023) Received from [facility] Family and Community Support Help with Day-to-Day Activities: Not on file Lonely or Isolated: Not on file Intimate Partner Violence: Unknown (03/22/2023) Received from [facility] Abuse Screen Unsafe at Home or Work/School: Not on file Feels Threatened by Someone?: Not on file Does Anyone Keep You from Contacting Others or Doint Things Outside the Home?: Not on file Physical Sign of Abuse Present: Not on file Housing Stability: Unknown (03/22/2023) Received from [facility] Housing Stability Current Living Arrangements: Not on file Potentially Unsafe Housing Conditions: Not on file Physical Exam: Physical Exam CONST: -Well-developed well-nourished ; -In no acute distress. -Vitals reviewed. EYES: -EOM intact, KOLBY: -Sclera normal and conjunctiva: clear bilaterally. ENT: - Normal pharynx pink and moist. NECK: -Supple (zvtp-yb-ivmjg). CARD: -Rate and rhythm: Regular -Murmurs: No [...] by Nasal route once for 1 dose. Cam[place] into the nose as directed. Call 911. [...] information. . . Jennifer Moore MD 02/16/241654 [facility]09-02-2024 Evaluation + Plan noteExtracted from: Title:ED Note Author:Ritesh Heath DO Date :02/13/24 Pain, dental (K08.89: Other specified disorders of teeth and supporting structures) Orders: amoxicillin-clavulanate, 1 tab(s), Oral, q12hr for 7 day(s), 14 tab(s), Refill(s) 0, [facility]/pharmacy #[id number], 165.1, cm, 02/13/24 0:28:00 EDT, Height/Length Dosing, 87.3, kg, 02/13/24 0:28:00 EDT, Weight Dosing benzocaine topical, 1 luis, Gel, Topical, QID for 30 day(s), Stop date 03/14/24 0:42:00 EDT, STAT, Start date 02/13/24 0:43:00 EDT lidocaine topical, 200 mg, 10 mL, Soln-Oral, Oral, Once, Stop date 02/13/24 0:43:00 EDT, STAT, Start date 02/13/24 0:43:00 EDT [facility] 09-02-2024 Hospital Discharge instructions Patient Education [...] or after getting dental care. Medicines Take vcrq-xuq-ypmdzbj and prescription medicines only as told by [...] pain may be mild or severe. Take vcul-uef-doicyjz and prescription medicines only as told by [...] provider. Document Revised: 03/04/2021 Document Reviewed: 03/04/2021 [employer] Patient Education 2023 [employer]. Follow Up Care 02/13/2024 00:22:40 With:Dental: [facility] [phone] Address:Unknown When:02/16/2024 With:Dental: [facility] [phone] Address:Unknown When:02/16/2024 With:Dental: [facility] [phone] Address:Unknown When:02/16/2024 [facility] 09-02-2024 NoteED Patient Education Note Dentistry [...] after getting dental care. Medicines ? Take zenb-ibi-kwtdvca and prescription medicines only as told by [...] may be mild or severe. ? Take aqmy-bad-maaxwui and prescription medicines only as told by [...] provider. Document Revised: 03/04/2021 Document Reviewed: 03/04/2021 [employer] Patient Education ? 2023 [employer].[facility] 01-22-2024 Hospital Discharge instructions* Discharge Instructions* [...] through Care Everywhere. * Ovarian Cyst: Functional (Danish) [facility]* Author Jennifer Duran [facility] Authored January 19, 2024 11: 44am The above note written by __ _Polly Collado____ acting as human recorder, note dictated by Dr. Mcfadden .I performed the above HPI, ROS, and Examination. I formulated and dictated the treatment plan and was present for entire encounter. Jennifer Duran D.O. [facility] Work Phone: 1(751) 567-144005-28-2024 Hospital Discharge instructions* Discharge Instructions* Eren Camejo DO - 11/08/2023 12:01 PM EDT Use clindamycin as prescribed. Continue the pain medicine that you have at home as needed for pain.Follow-up with dentist as scheduled * Attachments The following attachments cannot be sent through Care Everywhere. * Tooth and Gum Pain (Danish) [facility] Evaluation note* Author Jennifer Duran [facility] Authored October 18, 2023 3:45pm The above note written by __ _Polly Collado____ acting as human recorder, note dictated by Dr. Mcfadden .I performed the above HPI, ROS, and Examination. I formulated and dictated the treatment plan and was present for entire encounter. Jennifer Duran D.O. [facility] Work Phone: 1(370) 696-680404-19-2024 Evaluation + Plan noteExtracted from: Title:ED Note [...] Diagnostic Tests Pending * Urine Culture 09/30/23 [facility]04-19-2024 Hospital Discharge instructions Patient Education 09/30/2023 [...] (oophorectomy). Follow these instructions at home: Take xpyu-vic-euzabio and prescription medicines only as told by [...] provider. Document Revised: 11/06/2020 Document Reviewed: 11/06/2020 [employer] Patient Education 2022 [employer]. Follow Up Care 09/29/2023 23:40:10 With:Rose Royal Address: [address] [place] [address]- Business (1) When:10/03/2023 [facility]04-15-2024 Hospital Discharge instructions Follow Up Care 09/26/2023 13:55:08 With:[facility] Address: [address] [place] [address]- Business (1) When:09/29/2023 17:49:12 With:Tarun BRADEN Address: [address] [place] [address]- Business (1) When:09/29/2023 17:49:03 With:XXXX NONE Address: [place] When:Within 3 Day(s) [facility]04-15-2024 Evaluation + Plan noteExtracted from: Title:ED [...] q12hr, # 20 tab(s), Refills(s) 0, Pharmacy: [facility]/pharmacy #[id number], 165, cm, 09/26/23 14:18:00 EDT, Height/Length Dosing, 81.2, kg, 09/26/23 14:18:00 EDT, Weight Dosing hyoscyamine, 0.125 mg = 1 tab(s), Oral, QID, X 5 day(s), # 20 tab(s), Refills(s) 0, Pharmacy: [facility]/pharmacy #[id number], 165, cm, 09/26/23 14:18:00 EDT, Height/Length Dosing, 81.2, kg, 09/26/23 14:18:00 EDT, Weight Dosing ketorolac, 30 mg = 1 mL, Injection, IV, Once, Stop date 09/26/23 15:40:00 EDT, STAT, Start date 09/26/23 15:40:00 EDT, 09/26/23 15:40:00 EDT polyethylene glycol 3350, 17 gm, Oral, Daily, X 7 day(s), # 119 gm, Refills(s) 0, Pharmacy: [facility]/pharmacy #[id number], 165, cm, 09/26/23 14:18:00 EDT, Height/Length Dosing, 81.2, kg, 09/26/23 14:18:00 EDT, Weight Dosing Beta hCG Qual CBC w/ Auto Diff Comprehensive Metabolic Panel CT Abdomen/Pelvis w/ Contrast Drug Screen Urine eGFR Extra Blue Tube Extra SST Tube Lipase Level UA with Cult Rflx US Pelvis Non-OB Complete US Transvaginal Non-OB [facility]02-18-2024 Hospital Discharge instructions Patient Education 07/31/2023 [...] Follow these instructions at home: Medicines Take purr-rbk-zvfsovs and prescription medicines only as told by [...] Watch your condition for any changes. Take cdli-mgx-qnfrutj and prescription medicines only as told by [...] provider. Document Revised: 07/18/2020 Document Reviewed: 10/08/2019 [employer] Patient Education 2022 [employer]. Follow Up Care 07/31/2023 15:34:13 With:Follow-up with your ASSISTED LIVING ADMINISTRATOR at [facility] Address:Unknown When:08/03/2023 17:52:19 Comments:Call the office of [...] weakness, or any new or worsening symptoms. [facility]02-15-2024 Evaluation note* Author Jennifer Duran [facility] Authored July 28, 2023 1:18pm The above note written by __ _Polly Collado____ acting as human recorder, note dictated by Dr. Mcfadden .I performed the above HPI, ROS, and Examination. I formulated and dictated the treatment plan and was present for entire encounter. Jennifer Duran D.O. [facility] Work Phone: 1(128) 332-477302-06-2024 Evaluation note* Encounter Date Diagnosis Assessment Notes Treatment Notes Treatment Clinical Notes Jul, Anxiety (ICD-10 - F41.9) [employer] Other 02-06-2024 Evaluation note* Encounter Date Diagnosis [...] an appointment with her specialist through the [facility] and is scheduled at the end of this month (July) and is hoping to have a total hysterectomy. [employer] Other 12-26-2023 Evaluation note* Encounter Date Diagnosis Assessment Notes Treatment Notes Treatment Clinical Notes May, Cough (ICD-10 - R05.9) [employer] Other 12-04-2023 Evaluation note* Encounter Date Diagnosis Assessment Notes Treatment Notes Treatment Clinical Notes May, Anxiety (ICD-10 - F41.9) [employer] Other 11-12-2023 Hospital Discharge instructions Patient Education [...] Follow these instructions at home: Medicines Take avde-dps-booiplx and prescription medicines only as told by [...] Watch your condition for any changes. Take gvch-rnm-mhtzbax and prescription medicines only as told by [...] provider. Document Revised: 07/18/2020 Document Reviewed: 10/08/2019 [employer] Patient Education 2022 [employer]. Follow Up Care 04/24/2023 13:13:55 With:YOUR OBGYN at [facility] Address:Unknown When:04/27/2023 15:50:22 Comments:Seek immediate medical [...] develop any new or worsening symptoms. 3. [facility]11-12-2023 Evaluation + Plan noteExtracted from: Title:ED Note Author:Jignesh Dumont DO Date:06/24/22 Abdominal pain, acute, left lower quadrant (R10.32: Left lower quadrant pain) Ordered: oxycodone, 5 mg = 1 cap(s), Oral, q6hr, PRN Pain 8-10, X 3 day(s), # 12 cap(s), Refills(s) 0, Pharmacy: [facility]/pharmacy #[id number], 165.1, cm, 04/24/23 [...] Saline Lock Insert UA With Cult Reflex [facility]11-06-2023 Evaluation note* Encounter Date Diagnosis Assessment [...] an appointment with her specialist at the [facility] in June (2023) which was the soonest they could get her in. She is hoping that they will at least remove the ovary but she is willing to have a total hysterectomy if they will do it. 1:13 PM - 1:20 PM [employer] Other 10-20-2023 Evaluation note* Encounter Date Diagnosis Assessment Notes Treatment Notes Treatment Clinical Notes Mar, Anxiety (ICD-10 - F41.9) [facility] Other 10-17-2023 Progress note Author Christi Aquino [facility] March 29, 2023 4:11pm Note Date/Time March 29, 2023 1 1:35am [facility] [address] [place] [address] Progress Note Signed with Addenda Patient: Antonia Noyola MR#: [id number] : 1985 Acct:[id number] Age/Sex: 38 / F Adm Date: 3 Loc: 3T Room: [address] [place] [address] Type: ADM IN Attending Dr: Christi Aquino MD Copies to: ~ ADDENDUM1 Upon re-evaluation in the afternoon, patient feels better and would like to go home. Prescribed pain medications as needed as directed. Advised to continue to follow up with [facility] staff boilermaker ship. 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 boilermaker ship eval requested for further evaluation. 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 Afebrile here, no leukocytosis or obvious evidence of infectious process. Placed on Pain meds regimen IV and PO. Ongoing monitoringfor now. Documented By: Christi Aquino MD 03/29/23 11 32 Signed By: <Electronically signed by Christi Aquino MD> 03/29/23 6375 [facility] Work Phone: 1(854) 365-601510-17-2023 History and physical note Author Megan Muniz [facility] March 29, 2023 7:29am Note Date/Time March 29, 2023 7 :29am [facility] [address] [place] [address] Hospitalist H&P Signed Patient: Antonia Noyola MR#: [id number] : 1985 Acct:[id number] Age/Sex: 38 / F Adm Date: 3 Loc: Room: [address] [place] [address] Type: ADM IN Attending Dr: Christi Aquino [...] findings. The patient case was discussed with ASSISTED LIVING ADMINISTRATOR, who was not convinced that left ovarian [...] Previous records in the computer system reviewed [facility] Medical History Anemia Endometriosis Surgical [...] (Auto) 42.8 % (.) 03/29/23 01:40 [place] % (Auto) 7.3 % (.) 03/29/23 01:40 Eos % (Auto) 1.8 % (.) 03/29/23 01:40 Baso % (Auto) 1.3 % (.) 03/29/23 01:40 Nucleat RBC Rel Count 0.1 /100 WBC (0-0.5) 03/29/23 01:40 Neut # (Auto) 3.5 x10E3/uL (1.8-7.7) 03/29/23 01:40 Lymph # (Auto) 3.2 x10E3/uL (1.00-4.8) 03/29/23 01:40 [place] # (Auto) 0.6 x10E3/uL (0.0-0.8) 03/29/23 01:40 [...] pH 7.5 (5.0-9.0) 03/29/23 02:53 Ur Specific [place] 1.003 (1.001-1.030) 03/29/23 02:53 Urine Protein Negative [...] she does have tachycardia We will consult ASSISTED LIVING ADMINISTRATOR Check lactic acid 2. Microcytic iron deficiency [...] <Electronically signed by Megan Muniz MD> 03/29/23728 [facility] Work Phone: 1(915) 925-483308-02-2023 Evaluation note* Encounter Date Diagnosis Assessment Notes [...] relief. She would need to see an sales support specialist for this. She is agreeable [...] an appointment to see Dr. Castillo again. [employer] Other 06-29-2023 Evaluation note* Encounter Date Diagnosis Assessment Notes Treatment Notes Treatment Clinical Notes Nov, Acute sinusitis (ICD-10 - J01.90) Nov, Cough (ICD-10 - R05.9) [employer] Other 05-01-2023 Evaluation note* Encounter Date Diagnosis [...] noted. Rx was called into [facility], spoke with Chad TOWNSEND, the Xanax 0.25 MG tablets are out of stock currently so her dose was increased to 0.5 MG and she was instructed to take 1/2 tablet q8-12 hours as needed. Only 12 tablets were called in. Pt voiced understanding when notified of this change. October, Other 3:17 PM - 3:23 PM [employer] Other 04-12-2023 Evaluation note* Encounter Date Diagnosis [...] Sep, Other 12:46 PM - 12:51 PM [employer] Other 01-30-2023 Evaluation note* Encounter Date Diagnosis Assessment Notes Treatment Notes Treatment Clinical Notes Jun, Anxiety (ICD-10 - F41.9) [employer] Other 01-30-2023 Evaluation note* Encounter Date Diagnosis [...] Side effects/risks/benefi ts of medication were reviewed. [employer] Other 12-21-2022 Evaluation note* Encounter Date Diagnosis [...] May, Other 3:27 PM - 3:32 PM [employer] Other 11-18-2022 Miscellaneous Notes* Telephone Encounter - Tabby Steele Ma - 04/30/2022 2:25 PM EST CMP if needed. Tabby Steele Ma [facility]* Encounter Date Diagnosis Assessment Notes Treatment Notes Treatment Clinical Notes Mar, Anxiety (ICD-10 - F41.9) [employer] Other 10-31-2022 Evaluation note* Encounter Date Diagnosis [...] done and then return to see her ASSISTED LIVING ADMINISTRATOR at the [facility] because she feel she has another ovarian cyst. [employer] Other 10-28-2022 Miscellaneous Notes* Allied Health - [...] 2:21 PM PAGER/CONTACT #: documented in this [facility]10-[facility]2022 Miscellaneous Notes* Telephone Encounter - MARY Narvaez - 03/15/2022 12:04 PM EDT Patient appears on the First Time Treatment List for a non-oncology treatment. No psychosocial assessment is indicated. JANNA Narvaez documented in this encounterT[facility]09-28-2022 NoteHNO ID: [id number] Author: Madyson Ni APRN.PIOTR Service: ? 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 [facility] [facility] October [facility], 2020 [...] and removal ovarian cyst (more content not included)...[facility]09-28-2022 History of Present illness Narrative* Madyson APRN. PercyDIRECTOR OF VENDOR MANAGEMENT - 03/10/2022 2:00 PM EDT Images from the original note were not included. 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 Recent laboratories from [facility] October 04, 2020 [...] Hyperlipidemia Father Heart Father bypass surgery, stents, [place] Madyson Ni APRN.DIRECTOR OF VENDOR MANAGEMENT [facility] [place], [place] CC: Dr. Jennifer Duran [address] [place] [phone] I spent a total of 30 minutes on the date of the service which included preparing to see the patient, zypi-bi-dhdl patient care, completing clinical documentation, obtaining and/or reviewing separately obtained history, performing a medically appropriate examination, counseling and educating the pat ient/family/caregiver, ordering medications, tests, or procedures, independently interpreting results (not separately reported), and communicating results to the patient/family/caregiver. documented in this encounter[facility]09-[facility]22 Miscellaneous Notes* Telephone Encounter - Meaghan Ordonez - 02/18/2022 3:14 PM EDT Patient has an appt on 02/23. Would you like labs? documented in this encounterTuscaraw[facility]09-06-2022 Evaluation note* Encounter Date Diagnosis Assessment Notes Treatment Notes Treatment Clinical Notes Feb, Iron deficiency anemia (ICD-10 - D50.9) Feb, Elevated liver enzymes (ICD-10 - R74.8) [facility] Other 07-28-2022 Evaluation note* Encounter Date Diagnosis Assessment Notes Treatment Notes Treatment Clinical Notes Dec, Anxiety (ICD-10 - F41.9) [facility] Other 06-24-2022 Hospital Discharge instructions Patient Education [...] develop this condition: Playing sports that include movi-tc-oknc contact with others. Having a skin condition [...] Follow these instructions at home: Medicines Take fkva-pyk-spuunfg and prescription medicines only as told by [...] 06/20/2015 Document Revised: 07/10/2019 Document Reviewed: 06/21/2017 [employer] Patient Education 2020 [employer]. 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 Do not smoke. Avoid being around [...] 05/30/2006 Document Revised: 10/30/2018 Document Reviewed: 10/30/2018 [employer] Patient Education 2020 [employer]. 12/04/2021 13:59:10 BMI for Adults BMI for [...] height. This can be done either in [place] ([place] or metric measurements. Note that charts are available to help you find your BMI quickly and easily without having to do these calculations yourself. To calculate your BMI in Danish ([place] measurements, your health care provider will: [...] medical problems. BMI can be measured using Danish measurements or metric measurements. To interpret your [...] 02/08/2005 Document Revised: 05/12/2018 Document Reviewed: 04/12/2018 [employer] Patient Education 2019 [employer]. [facility] 05-06-2022 Evaluation note* Encounter [...] October, Other 8:28 AM - 8:35 AM [employer] Other 03-01-2022 Evaluation note* Encounter Date Diagnosis Assessment Notes Treatment Notes Treatment Clinical Notes Aug, Cough (ICD-10 - R05) [employer] Other 02-21-2022 Evaluation note* Encounter Date Diagnosis [...] Jul, Other 5:43 PM - 5:48 PM [employer] Other 12-06-2021 Evaluation note* Encounter Date Diagnosis [...] May, Other 4:25 PM - 4:38 PM [employer] Other 11-09-2021 Evaluation note* Encounter Date Diagnosis [...] R63.5) Her TSH is normal at 1.04. [employer] Other 10-07-2019 History general Narrative - Reported* Type Description Date Medical History endometriosis 2012 Medical History Echocardiogram [facility] [place] Normal, ejection fraction 60-65% Medical History MRI Brain 03-21-19 [facility] [place], Normal Medical History anxiety Medical History pneumonia 06/2019 Surgical History Cholecystectomy Surgical History gal bladder removed 2008 Surgical History ablation - endometri osis removed off ovaries Dr Lentz 2012 Surgical History ovarian torsion 2014 Surgical History MRI pelvis 2018 Surgical History ovarian cyst removed 06/2018 Hospitalization History see above [employer] Other Consult note Author Jameel Hatfield [facility] April 28, 2022 8:22am Note Date/Time April 28, 2022 8:22am [facility] [address] [place] [address] ASSISTED LIVING ADMINISTRATOR Consult Note Signed Patient: Antonia Noyola MR#: [id number] : 1985 Acct:[id number] Age/Sex: 37 / F Adm Date: 2 Loc: Room: [address] [place] [address] Type: ADM INOo Attending Dr: Kiko Saenz [...] Last Admin: 04/28/22 04:43 Dose: 10 ml RESIDENTIAL YOUTH COUNSELOR - Exam Physical Exam Vital signs: Temp 97.7 F 04/28/22 04:18 Pulse 95 H 04/28/22 04:18 Resp 16 04/28/22 04:18 BP 136/95 04/28/22 04:18 Pulse Ox 100 04/28/22 04:18 O2 Del Method Room Air 04/28/22 04:18 Constitutional Constitutional: no acute distress Routine Respiratory Exam Respiratory: Absent respiratory distress Routine Abdominal Exam Abdominal: Present soft, normoactive bowel sounds and tenderness; Absent reboundor guarding RESIDENTIAL YOUTH COUNSELOR - Results Laboratory Results - Last 48 hrs. 04/28/22 02:00: Urine Color Yellow, Urine Appearance Cloudy A, Urine pH 6.5, Ur Specific [place] 1.005, Urine Protein Negative, Urine Glucose (UA) [...] Creatinine Clear 132.36, Sodium 137, Potassium 3.7, Aiyvbtxb646, Carbon Dioxide 21.1 L, Anion Gap 14.6, [...] (Auto) 64.6, Lymph % (Auto) 28.9, [place] % (Auto) 4.5, Eos % (Auto) 1.0, Baso % (Auto) 1.0, Neut # (Auto) 5.1, Lymph # (Auto) 2.3, [place] # (Auto) 0.4, Eos # (Auto) 0.1, Baso # (Auto) 0.1, Nucleated RBC % (auto) 0.0, Platelet Estimate Normal, Plt Morphology Comment Normal, RBC Morphology N/A, Polychromasia Slight, Hypochromasia Slight, Poikilocytosis Moderate, Anisocytosis Marked, Tear Drop Cells Slight, Ovalocytes Moderate RESIDENTIAL YOUTH COUNSELOR - A/P (1) Intractable abdominal pain: Code(s): [...] I suggested she follow-up with her editorial director at the [facility]. Code(s): N83.202 - Unspecified ovarian cyst, left side Status: Acute Documented By: JAMEEL HATFIELD MD 04/28/22816 Signed By: <Electronically signed by MD JAMEEL HATFIELD> 04/28/22821 [facility] Work Phone: Evaluation + Plan note No data available for this section [facility] Evaluation noteNo assessment information available [facility] Work Phone: Evaluation noteNo InformationNort [employer] Other Evaluation note* Diagnosis Iron deficiency anemia due to chronic blood loss- Primary Iron deficiency anemia secondary to blood loss (chronic) [facility] Diagnosis 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 documented [facility]* Diagnosis 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 Cyst of left ovary Other and unspecified ovarian cyst [facility] 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 Cyst of left ovary Other and unspecified ovarian cyst [facility]* Diagnosis Iron deficiency anemia due to chronic blood loss- Primary Iron deficiency anemia secondary to blood loss (chronic) documented in this [facility]* Diagnosis Onset Date Resolution Status Abdominal pain acute Ovarian cyst acute [facility] Work Phone: Evaluation note* Diagnosis Onset Date Resolution Status Abdominal pain acute Endometriosis acute Ovarian cyst acute [facility] Work Phone: Evaluation note* Author Jennifer Duran [facility] Authored July 28, 2023 12:18pm The above note written by __ _Polly Collado____ acting as human recorder, note dictated by Dr. Mcfadden .I performed the above HPI, ROS, and Examination. I formulated and dictated the treatment plan and was present for entire encounter. Jennifer Duran D.O. [facility] Work Phone: Evaluation note* Diagnosis Toothache- Primary Unspecified disorder of the teeth and supporting structures documented in this encounter [facility] note* Diagnosis Onset Date Resolution Status Anxiety acute Tachycardia acute [facility] Work Phone: Evaluation note* Diagnosis Cyst of left ovary- Primary Other and unspecified ovarian cyst documented in this encounter [facility] note* Diagnosis Lower abdominal pain Abdominal pain, other specified site documented in this encounter [facility] note* Diagnosis Pelvic pain- Primary Unspecified symptom associated with female genital organs documented in this encounter [facility] note* Diagnosis RLQ abdominal pain- Primary Abdominal pain, right lower quadrant Pelvic joint pain, right documented in this encounter [facility] note* Diagnosis Abdominal pain, right lower quadrant- Primary documented in this encounter [facility] note* Diagnosis Generalized abdominal pain- Primary Abdominal pain, generalized documented in this encounter [facility] note* Diagnosis Pelvic and perineal pain- Primary Unspecified symptom associated with female genital organs Endometriosis Endometriosis, site unspecified Ovarian remnant syndrome Other noninflammatory disorder of ovary, fallopian tube, and broad ligament documented in this encounter [facility] note* Diagnosis Chronic pelvic pain in female- Primary Unspecified symptom associated with female genital organs Right lower quadrant abdominal pain Abdominal pain, right lower quadrant documented in this encounter [facility] note* Diagnosis Encounter for chronic pain management- Primary documented in this encounter [facility] note* Diagnosis Onset Date Resolution Status Admit Date Acute cough acute September 03, 2 025 2:02pm Acute sinusitis acute August 2:02pm [facility] Work Phone: Hospital Discharge instructions Additional Instructions Please arrange a follow-up appointment with your [facility] editorial director.[facility] Work Phone: Hospital Discharge instructions Additional Instructions Take Motrin and Tylenol as needed for mild to moderate pain. Take oxycodone as prescribed for severe pain. Follow-up with Dr. Ness or Dr. Grayson in the office regarding further treatment with a [facility]RH [facility] Work Phone: Hospital Discharge instructions Additional Instructions Take Paoli as needed for severe pain, do not drink, drive, operate heavy machinery while taking Continue clindamycin as previously ordered by her dentist Return to emergency room for fever or chills, or dental abscess Follow-up with dentist and oral surgeon as scheduled[facility] Work Phone: Hospital Discharge instructionsAmbulatory Orders* Referral to Allergy/Immunology Time Frame: 12/07/23, Location: None [facility] Work Phone: Hospital Discharge instructions* Attachments The following attachments cannot be sent through Care Everywhere. * Pelvic Pain (Danish) [facility] Attachments The following attachments cannot be sent through Care Everywhere. * Endometriosis (Danish) * Pelvic Pain (Danish) documented in this encounterGrant HospitalHospital Discharge instructions* Attachments The following attachments cannot be sent through Care Everywhere. * Abdominal Pain (Danish) documented in this encounterBon [facility]ructionsNot on file documented in this encounterTri[facility] SystemInstructionsNot on file documented in this encounterK[facility] SystemInstructionsNot on file documented in this encounterProThe Surgical [facility] SystemInstructionsNot on file documented in this encounterK[facility] SystemInstructionsNot on file documented in this encounterKettering [facility] SystemInstructionsNot on file documented in this encounterKettering [facility] SystemProgress note No data available for this section [facility] Reason for referral (narrative)* Consultation (Routine) - New Request Specialty Diagnoses / Procedures Referred By Gina t Referred To Contact Multispecialty Diagnoses RLQ abdominal pain Pelvic joint pain, right Davi Rivas DO [address] [place] [address] Referral ID Status Reason Start Date Expiration Date V isits Requested Visits Authorized [id number] New Request 03/03/2024 03/28/2025 1 1 * Consultation (Routine) - New Request Specialty Diagnoses / Procedures Referred By Gina t Referred To Contact ASSISTED LIVING ADMINISTRATOR Diagnoses RLQ abdominal pain Pelvic joint pain, right Davi Rivas DO [address] [place] [address] Isabell Hodges DO [address] [place] [address] Referral ID Status Reason Start Date Expiration Date V isits Requested Visits Authorized [id number] New Request 03/03/2024 03/28/2025 1 1 [facility] Summary Purpose Family History No Family [...] To Contact Procedures ECG Jennifer Moore MD [address] [place] [id number] Referral ID Status Reason Start Date Expiration Date V isits Requested Visits Authorized [id number] New Request 02/16/2024 03/12/2025 1 1 Reason appt pt is elsiearmando robi to see whomever can see her first pt needs consult to discuss possible injection for right sided bursitis Diagnosis 1 Greater trochanteric bursitis of right hip (M70.61) Referral Organization [facility] [place] Referring Provider First Name Jennifer Referring Provider Last Name Wilber Referring Provider Specialty Family Prac kasi Referred Organization [facility] [place] [facility] Referred Provider Chad Luna II Referred Address [address] [place], [place],[address] Referred Provider Specialty Orthopedic S urgery Referral Priority Routine General Notes Angelita Trevino 01/12/2023 03:51:47 PM > referral sent p2p. pt understands that she will be contacted to schedule this appt. Reason appt consult for e zia and treatment of continued cough since covid infection Diagnosis 1 Cough (R05) Referral Organization [facility] [place] Referring Provider First Name Jennifer Referring Provider [...] section and content) DATE CREATED AUTHOR 08/08/2020 [facility] DATE CREATED AUTHOR AUTHOR'S ORGANIZ ATION 05/03/2022 [facility] DATE CREATED AUTHOR AUTHOR'S ORGANIZ ATION 10/19/2022 [facility] DATE CREATED AUTHOR AUTHOR'S ORGANIZ ATION 06/23/2023 [facility] DATE CREATED AUTHOR AUTHOR'S ORGANIZ ATION 09/06/2023 [facility] [place] DATE CREATED AUTHOR AUTHOR'S ORGANIZ ATION 10/21/2023 [facility] DATE CREATED AUTHOR AUTHOR'S ORGANIZ ATION 11/27/2023 [facility] DATE CREATED AUTHOR AUTHOR'S ORGANIZ ATION 03/30/2024 [facility] DATE CREATED AUTHOR AUTHOR'S ORGANIZ ATION 06/11/[address] [facility] DATE CREATED AUTHOR AUTHOR'S ORGANIZ ATION 06/28/2024 Orlin Perez [facility] DATE CREATED AUTHOR AUTHOR'S ORGANIZ ATION 07/01/2024 [facility] DATE CREATED AUTHOR AUTHOR'S ORGANIZ ATION 07/14/2024 [facility] DATE CREATED AUTHOR AUTHOR'S ORGANIZ ATION 07/17/2024 [facility] DATE CREATED AUTHOR AUTHOR'S ORGANIZ ATION 07/30/2024 [facility] DATE CREATED AUTHOR AUTHOR'S ORGANIZ ATION 08/03/2024 [facility] DATE CREATED AUTHOR AUTHOR'S ORGANIZ ATION 08/04/2024 [facility] DATE CREATED AUTHOR AUTHOR'S ORGANIZ ATION 08/12/2024 [facility] DATE CREATED AUTHOR AUTHOR'S ORGANIZ ATION 08/15/2024 [facility] DATE CREATED AUTHOR AUTHOR'S ORGANIZ ATION 12/08/2024 [facility] DATE CREATED AUTHOR AUTHOR'S ORGANIZ ATION 01/17/2025 [facility] DATE CREATED AUTHOR AUTHOR'S ORGANIZ ATION 01/20/2025 [facility] Care Teams (unrecognized [...] Active Amaury Barlow DO Emergency Provider Active President And Chief Operating Officer Relationship Specialty Start Date End Date Jennifer Duran, DO [address] [place] [address] PCP - General 11/27/07 Jennifer Duran, DO [address] [place] [address] Referring Family Practice 04/03/19 Avinash Velásquez MD [address] [place] [id number] Referring ASSISTED LIVING ADMINISTRATOR 11/30/21 President And Chief Operating Officer Relationship Specialty Start Date End Date Jennifer Duran, DO [address] [place] [address] PCP - General 11/27/07 Jennifer Duran, DO [address] [place] [address] Referring Family Medicine 04/03/19 Avinash Velásquez MD [address] [place] [address] Referring ASSISTED LIVING ADMINISTRATOR 11/30/21 President And Chief Operating Officer Relationship Specialty Start Date End Date Jennifer Duran, DO [address] [place] [address] PCP - General 11/27/07 Jennifer Duran, DO [address] [place] [address] Referring Family Medicine 04/03/19 Avinsah Velásquez MD [address] [place] [id number] Referring ASSISTED LIVING ADMINISTRATOR 11/30/21 President And Chief Operating Officer Relationship Specialty Start Date End Date Jennifer Duran, DO [address] [place] [address] PCP - General 11/27/07 Jennifer Duran, DO [address] [place] [address] Referring Family Medicine 04/03/19 Avinash Velásquez MD [address] [place] [address] Referring ASSISTED LIVING ADMINISTRATOR 11/30/21 President And Chief Operating Officer Relationship Specialty Start Date End Date Jennifer Duran, DO [address] [place] [address] PCP - General 11/27/07 Jennifer Duran, DO [address] [place] [address] Referring Family Medicine 04/03/19 Avinash Velásquez MD [address] [place] [address] Referring ASSISTED LIVING ADMINISTRATOR 11/30/21 President And Chief Operating Officer Relationship Specialty Start Date End Date Jennifer Duran, DO [address] [place] [address] PCP - General 11/27/07 Jennifer Duran, DO [address] [place] [address] Referring Family Medicine 04/03/19 Avinash Velásquez MD [address] [place] [address] Referring ASSISTED LIVING ADMINISTRATOR 11/30/21 Team Status: Active Member Role Status Dates Jennifer Duran DO Primary Care Provider Active Yevgeniy Cabrera Jr, MD Emergency Provider Active Kiko Saenz DO Admit Provider, Attending Provider Active President And Chief Operating Officer Relationship Specialty Start Date End Date Jennifer Duran, DO [address] [place] [address] PCP - General 11/27/07 Jennifer Duran, DO [address] [place] [address] Referring Family Medicine 04/03/19 Avinash Velásquez MD [address] [place] [address] Referring ASSISTED LIVING ADMINISTRATOR 11/30/21 Team Status: Inactive Member Role Status [...] October 18, 2023 End: October 18, 2023 President And Chief Operating Officer Relationship Specialty Start Date End Date Jennifer Duran DO [address] [place] [address] PCP - General Family Medicine 09/14/23 Team [...] March 23, 2024 End: March 23, 2024 President And Chief Operating Officer Relationship Specialty Start Date End Date No Pcp, [place] [address] PCP - General Family Medicine 06/05/24 President And Chief Operating Officer Relationship Specialty Start Date End Date No Pcp, [place] [address] PCP - General [facility] 06/05/24 Team Status: Inactive Member Role Status Dates Jennifer Duran DO Primary Care Provide r, Attending Provider Active Start: September 03, 2024 End: September 03, 2024 President And Chief Operating Officer Relationship Specialty Start Date End Date No Pcp, [place] [address] PCP - General Family Medicine 06/05/24 President And Chief Operating Officer Relationship Specialty Start Date End Date No Pcp, [place] [address] PCP - General Family Medicine 06/05/24 Goals [...] SUCROSE INJECTION PER 1 MG Madyson Ni APRN.[facility] [address] [place] [address] Johny Treat [place] [address] [place] [address] Referral ID Status Reason Start Date Expiration Date V isits Requested Visits Authorized [id number] Authorized 03/10/2022 06/12/2022 99 99 Reason Comments [...] dose 5p. Report ovarian remnant syndrome. See Burlap Man in [place] Reason Comments Abdominal Pain Pt [...] or prosecute any alcohol or drug abuse patient.[facility] Hospital[facility] the event this information is protected by the Federal Confidentiality of Alcohol and Drug Abuse Patient Records regulations: The Federal rules restrict any use of the information to criminally investigate or prosecute any alcohol or drug abuse patient.[facility] HospitalIn the event this information is protected by the Federal Confidentiality of Alcohol and Drug Abuse Patient Records regulations: The Federal rules restrict any use of the information to criminally investigate or prosecute any alcohol or drug abuse patient.[facility] HospitalIn the event this information is protected by the Federal Confidentiality of Alcohol and Drug Abuse Patient Records regulations: The Federal rules restrict any use of the information to criminally investigate or prosecute any alcohol or drug abuse patient.[facility] HospitalIn the event this information is protected by the Federal Confidentiality of Alcohol and Drug Abuse Patient Records regulations: The Federal rules restrict any use of the information to criminally investigate or prosecute any alcohol or drug abuse patient.[facility] HospitalIn the event this information is protected by the Federal Confidentiality of Alcohol and Drug Abuse Patient Records regulations: The Federal rules restrict any use of the information to criminally investigate or prosecute any alcohol or drug abuse patient.[facility] HospitalIn the event this information is protected by the Federal Confidentiality of Alcohol and Drug Abuse Patient Records regulations: The Federal rules restrict any use of the information to criminally investigate or prosecute any alcohol or drug abuse patient.[facility] Ordered Prescriptions (unrec ognized section and [...] BE BASED ON THE PRIMARY CLINICAL RECORDS. [employer] [facility]. provides no warranty or guarantee of the accuracy or completeness of information in this document.
--- NOTE | 2025-02-18 09:08 | ED.GENADUL1 ---
HPI HPI - General Adult General Chief complaint: Abdominal Pain Stated complaint: ABDOMINAL PAIN Time Seen by Provider: 02/18/25 08:52 Source: patient Mode of arrival: walk-in Limitations: no limitations History of Present Illness HPI narrative: 40-year-old female presents to the emergency department for abdominal pain. It is in her right lower quadrant and it started yesterday. 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 Almost year ago she had YASMIN/BSO and is scheduled to see her kier boiler next month. She states a mass was found on a CAT scan in the right lower quadrant. She still has her appendix. The pain is severe and continuous. No trauma or fever. She was seen at [facility] emergency department last night as well as this emergency department last night as well. Related Data Home Medications ?Medication ?Instructions ?Recorded ?Confirmed alprazolam 0.25 mg tablet 0.25 mg PO Q8H PRN anxiety 09/20/23 08/11/24 citalopram 20 mg tablet (Celexa) 20 mg PO DAILY 09/20/23 08/11/24 atenolol 25 mg tablet 25 mg PO Q24H 02/11/24 08/11/24 acetaminophen 500 mg tablet 500 mg PO Q6H PRN pain 07/09/24 08/11/24 gabapentin 300 mg capsule 300 mg PO TID 07/09/24 08/11/24 ibuprofen 800 mg tablet 800 mg PO Q8H PRN pain 07/09/24 08/11/24 Previous Rx's ?Medication ?Instructions ?Recorded ketorolac 10 mg tablet 10 mg PO TID PRN pain #10 tabs 10/22/23 ondansetron 4 mg disintegrating 4 mg PO DAILY PRN nausea and 06/27/24 tablet vomiting #15 tabs acetaminophen 300 mg-codeine 30 mg 1 tab PO Q6H PRN pain 3 days #10 02/18/25 tablet tabs Allergies Allergy/AdvReac Type Severity Reaction Status Date / Time morphine Allergy Severe itching Verified 02/18/25 08:53 prochlorperazine (From AdvReac Mild Anxiety Verified 02/18/25 08:53 Compazine) Opioid HPI Opioid Management Most Recent Opioid Data: Last Pain Scale 8 Today, 09:14 Last MAR Pain Assessment Today, 09:14 Last ORT Total Score 2 09/20/23, 05:45 Last ORT Risk Category Low Risk 09/20/23, 05:45 Review of Systems ROS Narrative A ten point review of systems is negative except as noted above. [facility] Medical History Ovarian cyst ?N83.209 - Unspecified ovarian cyst, unspecified side (ICD-10) Endometriosis ?N80.9 - Endometriosis, unspecified (ICD-10) LLQ abdominal pain ?R10.32 - Left lower quadrant pain (ICD-10) Complex cyst of left ovary ?N83.292 - Other ovarian cyst, left side (ICD-10) Toothache ?K08.89 - Other specified disorders of teeth and supporting structures (ICD-10) Surgical History History of removal of cyst ?Z98.890 - Other specified postprocedural states (ICD-10) History of cholecystectomy ?Z90.49 - Acquired absence of other specified parts of digestive tract (ICD-10) Family History Family/Other No problems noted. Father Family history of CHF (congestive heart failure) Family history of COPD (chronic obstructive pulmonary disease) Family history of diabetes mellitus Family history of hypertension Family history of myocardial infarction Mother Family history of hypertension Other Family history of cancer Social History Within the past year, how often did you have a drink containing alcohol: monthly or less Within the past year, how many standard drinks containing alcohol did you have on a typical day: 1 or 2 Within the past year, how often did you have six or more drinks on one occasion: never Total score: 0 Score interpretation: A score less than 3 is consistent with normal alcohol consumption. Smoking status: Never smoker Non-prescribed substance use: denies use Highest level of school completed/degree received: Associate degree: academic program Are you now , , , , never or living with a partner: In a typical week, how many times do you talk on the telephone with family, friends, or neighbors: 3 or more times per week How often do you get together with friends or relatives: 3 or more times per week Little interest or pleasure in doing things: not at all Feeling down, depressed, or hopeless: not at all Feel stressed/tense/nervous/anxious/difficulty sleeping: not at all Do you think of yourself as: straight/heterosexual Gender Identity: female Exam Narrative Exam Narrative: Nurses note and vital signs reviewed and patient is not hypoxic. General: The patient appears uncomfortable. Skin: Warm, dry, no pallor noted. There is no rash noted. Head: Normocephalic, atraumatic Eye: Normal conjunctiva, no drainage Ears, Nose, Mouth, and Throat: oral mucosa is moist. Nares patent. Cardiovascular: Regular Rate and Rhythm Respiratory: Patient is in no distress, no accessory muscle use, lungs are clear to auscultation, no wheezing, rales or rhonchi Back: non-tender GI: Soft and nondistended. Tenderness present in the right lower quadrant. Musculoskeletal: The patient has no evidence of calf tenderness, no pitting edema, symmetrical pulses noted bilaterally Neurological: A&O, normal speech Psychiatric: Cooperative Constitutional Vital Signs, click to edit/add: Last Vital Signs Temp 99.2 F 02/18/25 08:53 Pulse 108 H 02/18/25 09:59 Resp 02/18/25 09:59 BP 142/106 H 02/18/25 08:53 Pulse Ox 96 02/18/25 09:59 O2 Del Method Room Air 02/18/25 08:53 Course Vital Signs Vital signs: Vital Signs Temperature 99.2 F 02/18/25 08:53 Pulse Rate 111 H 02/18/25 08:53 Respiratory Rate 20 02/18/25 08:53 Blood Pressure 142/106 H 02/18/25 08:53 Pulse Oximetry 99 02/18/25 08:53 Oxygen Delivery Method Room Air 02/18/25 08:53 Temperature 99.2 F 02/18/25 08:53 Pulse Rate 108 H 02/18/25 09:59 Respiratory Rate 20 02/18/25 09:59 Blood Pressure 142/106 H 02/18/25 08:53 Pulse Oximetry 96 02/18/25 09:59 Oxygen Delivery Method Room Air 02/18/25 08:53 Medical Decision Making MDM Narrative Medical decision making narrative: Her workup including CT of the abdomen is negative. She was treated for her pain with 1 mg of Dilaudid here and given a prescription for 10 Tylenol 3. She will follow-up with her kier boiler and we discussed possibly getting into pain management. Treatment diagnosis and follow-up were discussed with the patient. Differential Diagnosis Differential Diagnosis: Appendicitis, constipation Lab Data Lab results reviewed: Yes I reviewed the patient's lab results Labs: Lab Results 02/18/25 02/18/25 Range/Units 09:03 09:06 WBC 12.0 H (4.0-11.0) 10^3/uL RBC 4.68 (4.20-5.40) 10^6/uL Hgb 11.6 L (12.0-16.0) g/dL Hct 35.9 L (36.0-48.0) % MCV 76.7 L (81.0-99.0) fL MCH 24.8 L (26.7-34.0) pg MCHC 32.3 (29.9-35.2) g/dL RDW 17.6 H (11.0-15.0) % Plt Count 510 H (150-450) 10^3/uL MPV 9.0 L (9.5-13.5) fL Neut % (Auto) 69.3 (43.0-75.0) % Lymph % (Auto) 24.0 (20.5-60.0) % [place] % (Auto) 5.8 (1.7-12.0) % Eos % (Auto) 0.2 L (0.9-7.0) % Baso % (Auto) 0.3 (0.2-2.0) % Neut # (Auto) 8.3 H (1.4-6.5) 10^3/uL Lymph # (Auto) 2.9 (1.2-3.8) 10^3/uL [place] # (Auto) 0.7 (0.3-0.8) 10^3/uL Eos # (Auto) 0.0 (0.0-0.7) 10^3/uL Baso # (Auto) 0.0 (0.0-0.1) 10^3/uL Abs Immat Gran (auto) 0.05 H (0.00-0.03) 10^3/uL Imm/Tot Granulo (auto) 0.4 (0.0-0.5) % Sodium 139 (136-145) mmol/L Potassium 3.6 (3.5-5.1) mmol/L Chloride 103 (98-107) mmol/L Carbon Dioxide 20.5 L (21.0-32.0) mmol/L Anion Gap 19.1 BUN 7.0 (7.0-18.0) mg/dL Creatinine 0.79 (0.55-1.02) mg/dL Est GFR ( Amer) >60 (>=60 mL/min/1.73m^2) Est GFR (Non-Af Amer) >60 (>=60 mL/min/1.73m^2) BUN/Creatinine Ratio 8.9 Glucose 117 H (74-106) mg/dL Calcium 9.3 (8.5-10.1) mg/dL Urine Color Lt. yellow (YELLOW) Urine Clarity Clear (CLEAR) Urine pH 6.5 (5.0-9.0) Ur Specific [place] 1.015 (1.005-1.025) Urine Protein Trace (NEG/TRACE) mg/dL Urine Glucose (UA) Negative (NEGATIVE) mg/dL Urine Ketones Negative (NEGATIVE) mg/dL Urine Occult Blood Negative (NEGATIVE) Urine Nitrite Negative (NEGATIVE) Urine Bilirubin Negative (NEGATIVE) Urine Urobilinogen 1.0 (0.2-1.0) EU/dL Ur Leukocyte Esterase Trace A (NEGATIVE) Urine RBC 0-2 (0-2) #/HPF Urine WBC 0-2 A (NONE SEEN) #/HPF Ur Squamous Epith Cells Few A (NONE/RARE) #/LPF Urine Crystals None seen (None Seen) #/HPF Urine Bacteria Trace A (NONE SEEN) #/HPF Urine Casts None seen (NONE SEEN) #/LPF Urine Mucus None seen (NONE SEEN) Ur Culture Indicated? No Imaging Data CT scan - abdomen: Radiologist's impression: ITS Impressions Abdomen/Pelvis CT 02/18/25 09:06 IMPRESSION: MILD BILIARY PROMINENCE WHICH IS LIKELY SECONDARY TO PREVIOUS CHOLECYSTECTOMY. NO BOWEL OR URINARY TRACT OBSTRUCTION. NO EVIDENCE OF APPENDICITIS. SMALL LEFT OVARIAN FOLLICLES. NO OTHER ACUTE FINDINGS. Impression dictated by: Alesha Tejada M.D. 02/18/2025 9:57 AM Dictation Location: [place] [address] Electronically authenticated by: [id number] Y Date: 02/18/2025 09:57 Discharge Plan Discharge Chief Complaint: Abdominal Pain Clinical Impression: Abdominal pain Patient Disposition: Home, Self-Care Time of Disposition Decision: 10:04 Condition: Good Mode of Transportation: Private Vehicle Prescriptions / Home Meds: New acetaminophen-codeine 300-30 mg tablet 1 tab PO Q6H PRN (Reason: pain) 3 Days Qty: 10 0RF No Action ketorolac 10 mg tablet 10 mg PO TID PRN (Reason: pain) Qty: 10 0RF ondansetron 4 mg tablet,disintegrating 4 mg PO DAILY PRN (Reason: nausea and vomiting) Qty: 15 0RF ibuprofen 800 mg tablet 800 mg PO Q8H PRN (Reason: pain) acetaminophen 500 mg tablet 500 mg PO Q6H PRN (Reason: pain) gabapentin 300 mg capsule 300 mg PO TID alprazolam 0.25 mg tablet 0.25 mg PO Q8H PRN (Reason: anxiety) citalopram [Celexa] 20 mg tablet 20 mg PO DAILY atenolol 25 mg tablet 25 mg PO Q24H Print Language: Polish Instructions: Abdominal Pain (ED) Additional Instructions: Follow-up with your kier boiler Referrals: Physician,Non-Staff, MD [Primary Care Provider] - 1 week
[2025-02-18] MEDS: HYDROMORPHONE HCL 1 MG/ML CARTRIDGE IV (09:14)
[2025-02-18 09:20] LABS: Hematocrit 35.9 % (36.0-48.0); Hemoglobin 11.6 g/dL (12.0-16.0); Immature Granulocytes Abs Auto 0.05 10^3/uL (0.00-0.03); Immature Granulocytes Pct Auto 0.4 % (0.0-0.5); Lymphocytes Absolute Auto 2.9 10^3/uL (1.2-3.8); Mean Corpuscular HGB Conc 32.3 g/dL (29.9-35.2); Mean Corpuscular Hemoglobin 24.8 pg (26.7-34.0); Mean Corpuscular Volume 76.7 fL (81.0-99.0); Platelet Count 510 10^3/uL (150-450); Red Blood Count 4.68 10^6/uL (4.20-5.40); White Blood Count 12.0 10^3/uL (4.0-11.0)
[2025-02-18 09:21] LABS: Glucose Urine UA NEGATIVE (NEGATIVE)
[2025-02-18 09:27] LABS: Anion Gap 19.1; Blood Urea Nitrogen 7.0 mg/dL (7.0-18.0); Calcium 9.3 mg/dL (8.5-10.1); Carbon Dioxide 20.5 mmol/L (21.0-32.0); Chloride 103 mmol/L (98-107); Estimated GFR (African America >60 (>=60 mL/min/1.73m^2); Estimated GFR (Non-African Ame >60 (>=60 mL/min/1.73m^2); Glucose 117 mg/dL (74-106); Potassium 3.6 mmol/L (3.5-5.1); Sodium 139 mmol/L (136-145)
[2025-02-18 09:46] LABS: Cast Seen? NONE SEEN #/LPF (NONE SEEN); Crystals Seen? None Seen #/HPF (None Seen); Urine Culture Indicated NO
[2025-02-18 09:59] VITALS: PULSE 108; O2SAT 96
[2025-02-18 10:31] VITALS: BP 142/86; PULSE 104; O2SAT 99
== END 2025-02-18 10:33 | disposition home or self-care (01) ==
PROVIDERS: Emergency Provider Emergency Medicine
DX: R10.31 Right lower quadrant pain (principal); Z90.49 Acquired absence of other specified parts of digestive tract; Z90.710 Acquired absence of both cervix and uterus; Z90.79 Acquired absence of other genital organ(s); Z90.722 Acquired absence of ovaries, bilateral
CPT/HCPCS: 36415; 74177; 80048; 81001; 85025; 96374; 96375; 99284; J1171; J2405; Q9967

== ENCOUNTER 2025-04-10 17:27 | Emergency (ER) | payer BC, SELFPAY ==
--- OUTSIDE RECORDS SUMMARY | 2024-01-27 10:00 | XMS_ITS ---
Author Organization [facility] Address [address] [place] [address] Care Team Providers Care Welt Maker Name Role Phone Dr. Dennis Camacho Primary Care Provider [phone] Ricky Tracey Quintanilla [phone] REASON FOR VISIT FILLING Encounters Encounter Location Date Provider Diagnosis [facility] [address] [place] [address] 01/27/2024 Tracey Quintanilla Plan Of Treatment No Information Progress Notes * ANTONIA DE LOS SANTOS LDOB:[birth year] (40 yo F)Acc No.[id number]:01/27/2024 Patient:?ANTONIA DE LOS SANTOS :?Tracey QuintanillaDOB:1985???Age:39 Y???Sex: FemaleDate:01/27/2024hone:[phone]:[address] [place], [id number]:Dr. Dennis Camacho Subjective: * Chief Complaints: * F ILLING * Electronic signature of Tracey Quintanilla , KRISTOFER on 04/10/2025 at 06:02 PM EDTSign off status: Pending * Provider: Vasu Quintanilla Date: 0 01/27/2024 Generated for Printing/Faxing/eTransmitting on:?04/10/2025 06:02 PM EDT
--- OUTSIDE RECORDS SUMMARY | 2024-03-30 06:45 | XMS_ITS ---
Author Organization [facility] Address [address] [place] [place] [address] Care Team Providers Care Rn Anesthetist Name Role Phone Dr. Dennis Camacho Primary Care Provider REASON FOR VISIT RCT Encounters Encounter Location Date Provider Diagnosis [facility] [address] [place] [address] 03/30/2024 Dennis Camacho Plan Of Treatment No Information Progress Notes * ANTONIA DE LOS SANTOS LDOB:[birth year] (40 yo F)Acc No.[id number]:03/30/2024 Patient:?MAGALITRACEYANTONIA L :?Dennis Camacho DDSDOB:1985???Age:39 Y???Sex: FemaleDate:03/30/2024hone:[phone]:[address] [place], [id number] Subjective: * Chief Complaints: * R CT * Electronic signature of Dr. Dennis Camacho , DMD, [id number] on 04/10/2025 at 06:02 PM EDTSign off status: Pending * Provider: Vasu Camacho DDS Date: Generated for Printing/Faxing/eTransmitting on:?04/10/2025 06:02 PM EDT
--- OUTSIDE RECORDS SUMMARY | 2025-04-09 00:58 | XMS_ITS | Continuity of Care Document ---
Author Organization [facility] Address Unknown Care Team Providers Care Customer Relations Consultant Name Role Phone NONE, XXXX Primary Care Physician Unavailab le Encounter FT_FIN [id number] Date(s): 04/08/25 - 04/09/25 [facility] [address] [place] [address]- Encounter Diagnosis Chronic abdominal pain(Discharge Diagnosis) - 04/09/25 Other chronic pain(Discharge Diagnosis) - 04/09/25 Discharge Disposition: Home (Routine DC) Attending Physician: Jignesh Dumont DO Encounter Type: Emergency Allergies, Adverse Reactions, Alerts SubstanceCriticalitySeverityReactionReaction SeverityStatusmorphineItchActive CompazineJitteryActive Treatment Plan Extracted from:Title:ED NoteAuthor:Jignesh Dumont DODate:04/08/25 Chronic abdominal pain (R10.9: Unspecified abdominal pain) Other chronic pain??(G89.29: Other chronic pain) Orders: HYDROmorphone, 0.5 mg = 0.5 mL, Injection, IntraMuscular, Once, Stop date 04/08/25 23:07:00 EDT, STAT, Start date 04/08/25 23:07:00 EDT, 04/08/25 23:07:00 EDT HYDROmorphone, 0.5 mg = 0.5 mL, Injection, IntraMuscular, Once, Stop date 04/09/25 0:47:00 EDT, STAT, Start date 04/09/25 0:47:00 EDT, 04/09/25 0:47:00 EDT ondansetron, 4 mg = 2 mL, Injection, IntraMuscular, Once, Stop date 04/08/25 23:07:00 EDT, STAT, Start date 04/08/25 23:07:00 EDT, 04/08/25 23:07:00 EDT Basic Metabolic Panel Beta hCG Qual CBC w/ Auto Diff CT Abdomen/Pelvis w/o Contrast eGFR Saline Lock Insert UA with Cult Rflx UA with Cult Rflx SP Immunizations Given and Recorded VaccineDateStatusRefusal TrxjraZTLK-OxJ-6 (COVID-19) mRNA-1273 vaccine07/02/20 IbdrcekwLBSX-OzE-6 (COVID-19) mRNA-1273 utewoso56/23/20Recorded measles/mumps/rubella virus vaccine12/10/08Recorded Medications alprazolam 0.25 mg Tab Refills(s) 0 Start Date: 12/04/21 Status: Ordered Medication Dispense Status: Completed Total Allowed Fills: 1 Fills Dispensed: 0 citalopram 20 mg Tab mg tab(s), Oral, Daily, Refills(s) 0 Start Date: 12/04/21 Status: Ordered Medication Dispense Status: Completed Total Allowed Fills: 1 Fills Dispensed: 0 diflunisal 500 mg Tab 500 mg = 1 tab(s), Oral, q12hr, # 20 tab(s), Refills(s) 0, Pharmacy: [facility]/pharmacy #[id number], 165, cm, 09/26/23 14:18:00 EDT, Height/Length Dosing, 81.2, kg, 09/26/23 14:18:00 EDT, Weight Dosing Start Date: 09/26/23 Status: Ordered Medication Dispense Status: Completed Quantity: 20.0 Unit: tab(s) Total Allowed Fills: 1 Fills Dispensed: 0 Symbicort 80/4.5 inhalation aerosol with adapter Refill(s) 0 Start Date: 12/04/21 Status: Ordered Medication Dispense Status: Completed Total Allowed Fills: 1 Fills Dispensed: 0 Problem List ConditionConfirmationCourseEffective DatesStatusHealth StatusInformant EndometriosisConfirmedResolvedOvarian cystConfirmedResolvedNo Chronic Problems Active Procedures ProcedureDateRelated DiagnosisBody SiteStatusCholecystectomyCompleted HysterectomyCompleted Results Laboratory List NameDateBasic Metabolic Panel (BMP)04/08/25Beta hCG Qual04/08/25CBC w/ Auto Diff 04/08/25UA with Cult Rflx1UA with Cult Rflx SP125wPVN52/27/25 Most recent to oldest [Reference Range]:1UA Bili [Negative mg/dL]Negative mg/dL (04/08/25 11:23 PM)UA Color [Yellow]Colorless1 *ABN* (04/08/25 11:23 PM)UA Glucose [Negative mg/dL]Negative mg/dL (04/08/25 11:23 PM)UA Ketones [Negative mg/dL]Negative mg/dL (04/08/25 11:23 PM)UA Leuk Est [Negative Bertrand/uL]Negative Bertrand/uL (04/08/25 11:23 PM)UA Nitrite [Negative mg/dL]Negative mg/dL (04/08/25 11:23 PM)UA Protein [Negative mg/dL]Negative mg/dL (04/08/25 11:23 PM)UA Urobilinogen [Negative mg/dL]Negative mg/dL (04/08/25 11:23 PM)Beta hCG QlNegative (04/08/25 11:23 PM)UA Spec DescClean Catch (04/08/25 11:23 PM)UA Blood [Negative mg/dL]Negative mg/dL (04/08/25 11:23 PM)UA Clarity [Clear]Clear (04/08/25 11:23 PM)BUN/Creat Ratio [10-20]10 (04/08/25 11:23 PM)AGAP [6-16 mEq/L]15 mEq/L (04/08/25 11:23 PM)Basophil Auto [0.0-2.0 %]0.8 % (04/08/25 11:23 PM)CO2 [21-31 mmol/L]20 mmol/L *LOW* (04/08/25 PM)Eos Auto [0.0-8.0 %]0.1 % (04/08/25 PM)Glucose Lvl [55-199 mg/dL]106 mg/dL (04/08/25 PM)Hct [34.0-46.0 %]35.9 % (04/08/25 PM)Hgb [12.0-16.0 gm/dL]12.0 gm/dL (04/08/25 PM)Lymph Auto [14.0-50.0 %]35.7 % (04/08/25 PM)RBC [4.3-5.9 E12/L]4.7 E12/L (04/08/25 PM)RDW [10.9-14.2 %]21.2 % *HI* (04/08/25 PM)Sodium Lvl [135-145 mmol/L]137 mmol/L (04/08/25 PM)MCH [27.0-34.0 pg]25.9 pg *LOW* (04/08/25 PM)MCHC [31.4-36.0 gm/dL]33.6 gm/dL (04/08/25 PM)MCV [80.0-100.0 fL]77.1 fL *LOW* (04/08/25 PM)[place] Auto [4.0-14.0 %]5.4 % (04/08/25 PM)MPV [6.4-10.8 fL]7.5 fL (04/08/25 PM)Neutro Auto [36.0-75.0 %]58.0 % (04/08/25 PM)UA pH [5.0-9.0]7.5 *NA* (04/08/25 PM)BUN [5-21 mg/dL]7 mg/dL (04/08/25 PM)Calcium Lvl [8.9-11.1 mg/dL]9.5 mg/dL (04/08/25 PM)Platelet [150.0-500.0 E9/L]434.0 E9/L (04/08/25 11:23 PM)Potassium Lvl [3.5-5.3 mmol/L]3.4 mmol/L *LOW* (04/08/25:23 PM)UA Spec Grav [1.005-1.030]1.009 *NA* (04/08/25 11:23 PM)WBC [4.0-11.0 E9/L]8.9 E9/L (04/08/25:23 PM)Chloride [101-111 mmol/L]105 mmol/L (04/08/25 11:23 PM)[place] Absolute [0.2-1.0 E9/L]0.5 E9/L (04/08/25:23 PM)Eos Absolute [0.0-0.5 E9/L]0.0 E9/L (04/08/25 11:23 PM)Basophil Absolute [0.0-0.2 E9/L]0.1 E9/L (04/08/25 11:23 PM)Neutro Absolute [2.0-7.5 E9/L]5.1 E9/L (04/08/25 11:23 PM)Lymph Absolute [1.0-4.0 E9/L]3.2 E9/L (04/08/25 11:23 PM)eGFR [>=59 mL/min/1.73 m2]113 mL/min/1.73 m2 (04/08/25 11:23 PM)Creatinine [0.5-1.3 mg/dL]0.7 mg/dL (04/08/25:23 PM) 1Interpretive Data: Microscopic readings are only performed on those samples that meet specific criteria set forth by [facility]. Social History Social History [id number] SexFemaleSex RepresentationFemale (finding) [facility] Patient Education 04/09/2025 00:52:57 Abdominal Pain, Adult Abdominal Pain, Adult Pain [...] these instructions at home: Medicines ??? Take svmd-nyj-eeyxafy and prescription medicines only as told by [...] constipated or have diarrhea for more than 2???3 days. ??? You are not hungry, or you lose weight without trying. ??? You have signs of dehydration. These may include: ??? Dark pee, very little pee, or no pee. ??? Cracked lips or dry mouth. ??? Sleepiness or weakness. ??? You have pain [...] provider. Document Revised: 03/16/2023 Document Reviewed: 03/16/2023 [employer] Patient Education ?? 2023 [employer] Follow Up Care 04/08/2025 21:42:28 With:[facility] [place] Address:Unknown When:04/12/2025 Comments:Call the office of your primary care [...] you develop any new or worsening symptoms. Physician Emergency department Note * Jignesh Dumont DO: PERFORM Event Display: ED Note-Physician Authored Date: [id number] Basic Information Time Seen: Jignesh Dumont DO ??04/08/2025 22:09 Chief Complaint Pt arrives to ED from home with c/o recurrent right sided abdominal pain. Was seen here a few days ago, pain meds at home not helping. Has frequent ovarian cysts, h/o endometriosis. History of Present Illness 40-year-old female to the emergency department chief complaint of??acute on chronic right sided abdominal pain.?? She denies any nausea or vomiting. ??She has a history of endometriosis ovarian cystsand a endometrioma.?? She reports pain today is more??severe than typical.?? Would like workup. Review of Systems A 10 point review of systems is negative except as noted above. ?? Medical and Surgical History: Reviewed and noted Social history: Lives at home Tobacco: Denies Physical Exam Vitals & Measurements T:??36.4?C(Oral)?? HR:??114(Peripheral)?? RR:??20?? BP:??162/101?? SpO2:??100%?? HT:??165??cm?? WT:??100.0??kg?? BMI:??36.73?? VITALS: I have reviewed the triage vital signs.?? GENERAL: Well developed, well appearing adult female??in no acute distress. ?? NEURO: Alert and oriented. Moves all extremities. Face is symmetric and expressive.?? EYES: PERRL. No scleral icterus or conjunctival injection. No discharge.?? HENT: Normocephalic, atraumatic. Hearing is grossly intact. Nares grossly patent and without discharge. Mucous membranes moist.?? NECK: No JVD. Patient moves neck without restriction.?? CARDIO: Rhythm regular. Normal rate. No murmur, rub, or gallop. Pulses equal bilaterally in the upper and lower extremity. No lower extremity edema.?? PULM: Lungs clear to auscultation in all hol[place]. No wheezes, rales, or rhonchi. No conversational dyspnea. No splinting, stridor, or accessory muscle use. ?? GI/: Abdomen is soft. ??Mild right sided tenderness.?? Normoactive bowel sounds.?? EXTREMITIES: Symmetric muscle bulk. No joint swelling. No clubbing, cyanosis, or deformity.?? SKIN: Warm and dry. Normal turgor. No rash or lesions appreciated.?? PSYCH: Mood, affect, and interaction is appropriate to the setting. Medical Decision Making 40-year-old female well-known to this department for chronic abdominal pain presents to the emergency department chief complaint of right-sided abdominal pain. ??Vital stable, the patient is afebrile.?? Will obtain labs and imaging.?? Pain and nausea medicine was ordered. ?? CBC and chemistry are unremarkable. ??Urinalysis without evidence of infection. ?? test isnegative. ?? CT scan??without any acute findings. ?? Reassurance was given to the patient.?? She will continue her home pain regimen. ??No indicationfor??prescription of??controlled substances today.?? Patient was discharged home. Assessment/Plan Chronic abdominal pain??(R10.9: Unspecified abdominal pain) Other chronic pain??(G89.29: Other chronic pain) Orders: HYDROmorphone, 0.5 mg = 0.5 mL, Injection, IntraMuscular, Once, Stop date 04/08/25 23:07:00 EDT, STAT, Start date 04/08/25 23:07:00 EDT, 04/08/25 23:07:00 EDT HYDROmorphone, 0.5 mg = 0.5 mL, Injection, IntraMuscular, Once, Stop date 04/09/25 0:47:00 EDT, STAT, Start date 04/09/25 0:47:00 EDT, 04/09/25 0:47:00 EDT ondansetron, 4 mg = 2 mL, Injection, IntraMuscular, Once, Stop date 04/08/25 23:07:00 EDT, STAT, Start date 04/08/25 23:07:00 EDT, 04/08/25 23:07:00 EDT Basic Metabolic Panel Beta hCG Qual CBC w/ Auto Diff CT Abdomen/Pelvis w/o Contrast eGFR Saline Lock Insert UA with Cult Rflx UA with Cult Rflx SP Medications Administered Given HYDROmorphone 0.5 mg/0.5 mL injectable solution, 0.5 mg, IntraMuscular HYDROmorphone 1 mg/mL injectable solution, 0.5 mg, IntraMuscular ondansetron 4 mg/2 mL Inj, 4 mg, IntraMuscular Disposition Plan Patient Discharge Condition Stable Discharge Disposition Home Discharge Prescription List Prescriptions No active prescription medications Follow-up With When Contact Information [facility] in [place] In 3 days 04/12/2025 EDT Additional Instructions: Call the office of your primary care doctor to arrange for follow-up within the above-stated timeframe. ??Follow-up with your primary care doctor about this ED visit. ??You should review your labs, imaging, and diagnoses from this ED visit with your primary care physician. There are occasionally non-emergent findings that require additional follow-up after your ED visit. If you were prescribed medications you should discuss possible side- effects and drug interactions with your pharmacist. ?? Call 911 or go to the nearest Emergency Department ??if you develop any new or worsening symptoms. Patient Education Abdominal Pain, Adult Problem List/Past Medical History Ongoing No chronic problems Historical Endometriosis Ovarian cyst Procedure/Surgical History Cholecystectomy, Hysterectomy. Medications Inpatient No active inpatient medications Home alprazolam 0.25 mg Tab citalopram 20 mg Tab, Oral, Daily diflunisal 500 mg Tab, 500 mg= 1 tab(s), Oral, q12hr Symbicort 80/4.5 inhalation aerosol with adapter Allergies Compazine??(Jittery) morphine??(Itch) Social History Alcohol - Low Risk, 04/24/2023 Current, Beer, Wine, 1-2 times per month, 08/10/2024 Current, 1-2 times per month, 06/28/2024 Current, Beer, Wine, 1-2 times per month, 04/24/2023 Substance Abuse - Denies Substance Abuse, 04/24/2023 Tobacco Never (less than 100 in lifetime) Tobacco Use:. Never Smokeless Tobacco Use:., 12/04/2021 Lab Results WBC: 8.9 E9/L (04/08/25 23:23:00) RBC: 4.7 E12/L (04/08/25 23:23:00) HGB: 12 gm/dL (04/08/25 23:23:00) Hct: 35.9 % (04/08/25 23:23:00) MCV:??77.1 fL??Low (04/08/25 23:23:00) MCH:??25.9 pg??Low (04/08/25 23:23:00) MCHC: 33.6 gm/dL (04/08/25 23:23:00) RDW:??21.2 %??High (04/08/25 23:23:00) Platelet: 434 E9/L (04/08/25 23:23:00) MPV: 7.5 fL (04/08/25 23:23:00) Neutro Auto: 58 % (04/08/25 23:23:00) Lymph Auto: 35.7 % (04/08/25 23:23:00) [place] Auto: 5.4 % (04/08/25 23:23:00) Eos Auto: 0.1 % (04/08/25 23:23:00) Basophil Auto: 0.8 % (04/08/25 23:23:00) Neutro Absolute: 5.1 E9/L (04/08/25 23:23:00) Lymph Absolute: 3.2 E9/L (04/08/25 23:23:00) [place] Absolute: 0.5 E9/L (04/08/25 23:23:00) Eos Absolute: 0 E9/L (04/08/25 23:23:00) Basophil Absolute: 0.1 E9/L (04/08/25 23:23:00) Glucose Lvl: 106 mg/dL (04/08/25 23:23:00) BUN: 7 mg/dL (04/08/25 23:23:00) Creatinine: 0.7 mg/dL (04/08/25 23:23:00) eGFR: 113 mL/min/1.73 m2 (04/08/25 23:23:00) BUN/Creat Ratio: 10 (04/08/25 23:23:00) Sodium Lvl: 137 mmol/L (04/08/25 23:23:00) Potassium Lvl:??3.4 mmol/L??Low (04/08/25 23:23:00) Chloride: 105 mmol/L (04/08/25 23:23:00) CO2:??20 mmol/L??Low (04/08/25 23:23:00) AGAP: 15 mEq/L (04/08/25 23:23:00) Calcium Lvl: 9.5 mg/dL (04/08/25 23:23:00) UA Spec Desc: Clean Catch (04/08/25 23:23:00) UA Color: Colorless Abnormal (04/08/25 23:23:00) UA Clarity: Clear (04/08/25 23:23:00) UA Spec Grav: 1.009 (04/08/25 23:23:00) UA pH: 7.5 (04/08/25 23:23:00) UA Protein: Negat (04/08/25 23:23:00) UA Glucose: Negat (04/08/25 23:23:00) UA Ketones: Negat (04/08/25 23:23:00) UA Bili: Negat (04/08/25 23:23:00) UA ??Blood: Negat (04/08/25 23:23:00) UA Nitrite: Negat (04/08/25 23:23:00) UA Urobilinogen: Negat (04/08/25 23:23:00) UA Leuk Est: Negat (04/08/25 23:23:00) Beta hCG Ql: NEGATIVE1 (04/08/25 23:23:00) Diagnostic Results No qualifying data available. Electronically Signed By: Jignesh Dumont DO Date and Time Signed: 04/09/25 02:57 EDT Patient Care team information Care Team Personnel Name: NONE, XXXX Position: FT Physician Member Role: Primary Care Physician Address: [place] Care Team Related Persons Name: DECLINED, PATIENT Name: JENNIFER DE LOS SANTOS Insurance Providers Guarantor name: ANTONIA DE LOS SANTOS [employer] Plan Information #: 1 Payer: SELF PAY Payer Identifier: [id number] Member Number: NA Group Number: NA Subscriber Identifier: NA Relationship to Subscriber: self Coverage Type: NA Coverage Verification Date: NA Telecom: [employer]SH[employer] Address:
[2025-04-10 17:35] VITALS: BP 168/100; PULSE 129; TEMP 36.7; O2SAT 99; BMI 30.8
--- OUTSIDE RECORDS SUMMARY | 2025-04-10 18:01 | XMS_ITS | Encounter Summary ---
Author Organization [facility] Address [address] [place] [address] Phone Care Team Providers Care Mission Support Specialist Name Role Phone Aristides Merino Primary Care Provider [phone] Encounter Details DateTypeDepartmentCare Team (Latest Contact Info)Lxltoeusuay79/27/2025Orders Only [facility] [address] [place] [address] Jignesh Dumont, DO [address] [place] [address] Social History Tobacco UseTypesPacks/DayYears UsedDateSmoking Tobacco: Never Assessed CommentsUnknownSex and Gender InformationValueDate RecordedSex Assigned at Not on fileLegal HxaGraklg45/25/2022 5:01 PM ESTGender IdentityNot on fileSexual OrientationNot on filedocumented as of this encounter Plan of Treatment Not on file documented as of this encounter Procedures Procedure NamePriorityDate/TimeAssociated DiagnosisCommentsCT ABDOMEN PELVIS WO IV MCPEEPCD54/27/2025 11:39 PM EDT NON-UH HIE UA WITH CULT RFLX SBAskvxza73/27/2025 11:23 PM EDT NON-UH HIE UA WITH CULT OEXQAppkvtm35/27/2025 11:23 PM EDT NON-UH HIE CBC W/ AUTO GSVKNzksxag71/27/2025 11:23 PM EDT NON-UH HIE YXSMmxohmz71/27/2025 11:23 PM EDT NON-UH HIE DVQMTmzdfnv30/27/2025 11:23 PM EDT NON-UH HIE B HCG KHUJIwrkaqn70/27/2025 11:23 PM EDT documented in this encounter Results * CT abdomen pelvis wo IV contrast (04/08/2025 11:39 PM EDT)Anatomical Region LateralityModalityAbdominal, BodyComputed TomographySpecimen (Source) Anatomical Location / LateralityCollection Method / VolumeCollection Time Received Time04/08/2025 11:39 PM EDT Narrative 04/09/2025 9:17 AM EDT Exam Date/Time: 04/08/2025 23:48 EDT Reason for Exam: RLQ Pain;Pain Report IMPRESSION: POSTSURGICAL CHANGES. NO EVIDENCE OF OBSTRUCTIVE UROPATHY. ??NO EVIDENCE OF ACUTE ABDOMINAL OR PELVIC ??PATHOLOGY. CLINICAL HISTORY: ??Pain, RLQ Pain. COMPARISON: ??08/02/2024. COMMENT: Unenhanced images were obtained. There are surgical clips at the gallbladder fossa, from prior cholecystectomy. No biliary ductal dilatation is noted. The liver, spleen, pancreas, and adrenal glands are unremarkable on this unenhanced study. No renal nor ureteral calculus is noted. The renal collecting systems are not dilated. Both kidneys appear unremarkable, within the limitations of this unenhanced study. There is no retroperitoneal lymphadenopathy. The abdominal aorta is normal in diameter. No aneurysm is evident. Evaluation of bowel is limited on this study. The bowel loops are not dilated. There is no evidence of bowel obstruction. The appendix is normal. There is fecal material in the colon, which limits evaluation. There is no evidence of diverticulitis. No abdominal inflammatory complex, no free air, nor free fluid is noted. ?? The patient has had prior hysterectomy. What are presumed to be the ovaries are small and unremarkable in appearance. The right adnexal cyst noted on the prior CT scan has resolved. The urinary bladder is unremarkable. No bladder calculus is noted no pelvic mass nor pelvic lymphadenopathy is evident. Bony structures are unremarkable. All CT scans at this facility use dose modulation, iterative reconstruction, and/or weight based dosing when appropriate to reduce radiation dose to as low as reasonably achievable. Unless otherwise stated, incidental findings identified in this report do not require routine follow-up imaging. Ordering Provider: Jignesh Dumont FINAL REPORT Dictated: ??04/09/2025 9:14 am ? Danny Mcclain M.D. Signed (Electronic Signature): ??04/09/2025 9:14 am Signed by: ??Danny Mcclain M.D. Transcribed by: ??DP ? Technologist: ??AGB Authorizing ProviderResult TypeResult StatusJignesh Dumont DOIMG CT PROCEDURES Final Result * NON-[facility] HIE B hCG Qual (04/08/2025 11:23 PM EDT)ComponentValueRef RangeTest MethodAnalysis TimePerformed AtPathologist SignatureNON-UH HIE Beta hCG Ql NEGATIVEMercer County Community Hospitalimen (Source)Anatomical Location / LateralityCollection Method / VolumeCollection TimeReceived TimeOKLAHOMA [facility] [place] Lab- Blood04/08/2025 11:23 PM EDT Narrative Authorizing ProviderResult TypeResult StatusJignesh Dumont DOLAB BLOOD ORDERABLES Final ResultPerforming OrganizationAddressCity/State/ZIP CodePhone Number [facility] [address] [place] [address], * NON-[facility] HIE eGFR (04/08/2025 11:23 PM EDT)ComponentValueRef RangeTest Method Analysis TimePerformed AtPathologist SignatureNON-UH HIE GDID714>=59 mL/min/1.73 a7IBFYSFOHIO STATE HARDING HOSPITALpecimen (Source)Anatomical Location / LateralityCollection Method / VolumeCollection TimeReceived TimeOKLAHOMA [facility] [place] Lab- Blood04/08/2025 11:23 PM EDT Narrative Authorizing ProviderResult TypeResult StatusJignesh Dumont DOLAB BLOOD ORDERABLES Final ResultPerforming OrganizationAddressty/State/ZIP CodePhone Number [facility] [address] [place] [phone], * (ABNORMAL) NON-UH HIE BMP (04/08/2025 11:23 PM EDT)ComponentValueRef RangeTest MethodAnalysis TimePerformed AtPathologist SignatureNON-UH HIE GLUCOSE KCO068 55 - 199 mg/dLMEMORIAL [facility] HIE BUN75 - 21 mg/dLMEMORIAL HEALTH SYSTEM HIE CREATININE0.70.5 - 1.3 mg/dLKETTERING HEALTH MAIN [facility] BUN/CREAT OCBYV1888 - 20 No UnitsSELECT MEDICAL TRIHEALTH REHABILITATION HOSPITALE CALCIUM LVL9.58.9 - 11.1 mg/dLWAYNE HEALTHCARE MAIN CAMPUSE SODIUM [id number] - 145 mmol/LFPIKE COMMUNITY HOSPITAL HIE POTASSIUM LVL3.4(L)3.5 - 5.3 mmol/LFPIKE COMMUNITY HOSPITAL HIE JMFWUDAL552033 - 111 mmol/LFPIKE COMMUNITY HOSPITAL HIE CO220(L)21 - 31 mmol/LFPIKE COMMUNITY HOSPITAL HIE YSHU012 - 16 mEq/LFTRINITY HEALTH SYSTEM WEST CAMPUSpecimen (Source)Anatomical Location / LateralityCollection Method / VolumeCollection TimeReceived TimeOKLAHOMA [facility] Lab- Blood04/08/2025 11:23 PM EDT Narrative Authorizing ProviderResult TypeResult StatusJignesh STEVE BLOOD ORDERABLES Final ResultPerforming OrganizationAddressCity/State/ZIP CodePhone Number [facility] [address] [place] [address], * (ABNORMAL) NON- HIE CBC w/ Auto Diff (04/08/2025 11:23 PM EDT)ComponentValue Ref RangeTest MethodAnalysis TimePerformed AtPathologist SignatureDIGNITY HEALTH ST. [facility]IBOL[facility] HOSPITALE WBC8.94.0 - 11.0 E9/LFPIKE COMMUNITY HOSPITAL HIE RBC4.74.3 - 5.9 E12/LFPIKE COMMUNITY HOSPITAL HIE HGB12.012.0 - 16.0 gm/dLMEMORIAL HEALTH SYSTEM HIE HCT35.934.0 - 46.0 %[facility] NONST[facility] HIE RDW21.2(H)10.9 - 14.2 %[facility] HIE MCH 25.9(L)27.0 - 34.0 pgFPIKE COMMUNITY HOSPITAL HIE MCHC33.631.4 - 36.0 gm/dLMEMORIAL HEALTH SYSTEM HIE MCV77.1(L)80.0 - 100.0 [facility] HIE MPV7.56.4 - 10.[address] [facility] NON-UH HIE NIBNLPWW470.0150.0 - 500.0 E9/[facility] HIE NEUTRO AUTO58.036.0 - 75.0 %[facility] HIE LYMPH AUTO35.714.0 - 50.0 %[facility] HIE MONO AUTO5.44.0 - 14.0 %[facility] HIE EOS AUTO0.10.0 - 8.0 %[facility] HIE BASOPHIL AUTO0.80.0 - 2.0 %[facility] HIE NEUTRO ABSOLUTE5.12.0 - 7.5 /[facility] NON- HIE LYMPH ABSOLUTE3.21.0 - 4.0 E9/[facility] HIE MONO ABSOLUTE0.50.2 - 1.0 E9/[facility] HIE EOS ABSOLUTE0.00.0 - 0.5 /[facility] HIE BASOPHIL ABSOLUTE0.10.0 - 0.2 E9/[facility]ITALpecimen (Source) Anatomical Location / LateralityCollection Method / VolumeCollection Time Received TimeOKLAHOMA FORENSIC [facility] Lab- Blood04/08/2025 11:23 PM EDT Narrative Authorizing ProviderResult TypeResult StatusJignesh STEVE BLOOD ORDERABLES Final ResultPerforming OrganizationAddressCity/State/ZIP CodePhone Number [facility] [address] [place] [address], [place] * (ABNORMAL) NON-[facility] HIE UA WITH CULT RFLX (04/08/2025 11:23 PM EDT)Component ValueRef RangeTest MethodAnalysis TimePerformed AtPathologist SignatureNON- HIE UA ColorColorless(A)YellowCLEVELAND CLINIC HILLCREST HOSPITALComment:Microscopic readings are only performed on those samples that meet specific criteria set forth by [facility].NON-UH HIE UA ClarityClear ClearMEMORIAL HEALTH SYSTEM HIE UA Spec Grav1.0091.005 - 1.030 [facility] HIE UA pH7.55.0 - 9.0[facility] HIE UA ProteinNegativeNegative mg/dLCLEVELAND CLINIC HILLCREST [facility]OS[facility] NON- HIE UA GlucoseNegativeNegative mg/dLMEMORIAL HEALTH SYSTEM HIE UA KetonesNegativeNegative mg/dLMEMORIAL HEALTH SYSTEM HIE UA BiliNegativeNegative mg/dLMEMORIAL HEALTH SYSTEM HIE UA Blood NegativeNegative mg/dLMEMORIAL HEALTH SYSTEM HIE UA NitriteNegative Negative mg/dLMEMORIAL HEALTH SYSTEM HIE UA UrobilinogenNegative Negative mg/dLSELECT MEDICAL TRIHEALTH REHABILITATION HOSPITALE UA Leuk EstNegative Negative CD:[id number] STATE HARDING HOSPITALpecimen (Source)Anatomical Location / LateralityCollection Method / VolumeCollection TimeReceived Time [facility] Lab- Urine04/08/2025 11:23 PM EDT Narrative Authorizing ProviderResult TypeResult StatusJignesh FOSTERAB BLOOD ORDERABLES Final ResultPerforming OrganizationAddressCity/State/ZIP CodePhone Number [facility] [address] [place] [phone], * NON- HIE UA WITH CULT RFLX SP (04/08/2025 11:23 PM EDT)ComponentValueRef RangeTest MethodAnalysis TimePerformed AtPathologist SignatureDIGNITY HEALTH ST. [facility] C[facility]-CIBOL[facility] GENERAL HOSPITALE UA Spec DescClean CatchOHIO STATE HARDING HOSPITALpecimen (Source)Anatomical Location / LateralityCollection Method / VolumeCollection TimeReceived Time [facility] Lab- Urine04/08/2025 11:23 PM EDT Narrative Authorizing ProviderResult TypeResult StatusJignesh FOSTERAB BLOOD ORDERABLES Final ResultPerforming OrganizationAddressCity/State/[facility] [place] [address], documented in this encounter Visit Diagnoses Not on filedocumented in this encounter Care Teams Team MemberRelationshipSpecialtyStart DateEnd Date Aristides Merino DO [facility] - General08/06/20documented as of this encounter
--- OUTSIDE RECORDS SUMMARY | 2025-04-10 18:01 | XMS_ITS | Clinical Summary ---
Author Organization [facility] Address [address] [place] [address] Phone Care Team Providers Care Home Health Caregiver Name Role Phone Aristides Merino DO Primary Care Provider [phone] Encounters DateTypeDepartmentCare DzgcPbslonyexap47/27/2025Orders Only [facility] [address] [place] [address] Jignesh Dumont DO from Last 3 Months Social History Tobacco UseTypesPacks/DayYears UsedDateSmoking Tobacco: Never Assessed CommentsUnknownSex and Gender InformationValueDate RecordedSex Assigned at Not on fileLegal PtyZzmpee64/25/2022 5:01 PM ESTGender IdentityNot on fileSexual OrientationNot on file Plan of Treatment Not on file Procedures Procedure NamePriorityDate/TimeAssociated DiagnosisCommentsCT ABDOMEN PELVIS WO IV JULDHNSY68/27/2025 11:39 PM EDT NON-UH HIE B HCG POFKAvodqxu80/27/2025 11:23 PM EDT NON-UH HIE OXXBWbyzzzk54/27/2025 11:23 PM EDT NON-UH HIE SOLBqcgsim68/27/2025 11:23 PM EDT NON-UH HIE CBC W/ AUTO ZKVOAmplqjm99/27/2025 11:23 PM EDT NON-UH HIE UA WITH CULT YXXUYracqoy94/27/2025 11:23 PM EDT NON-UH HIE UA WITH CULT RFLX BPQaehrtr65/27/2025 11:23 PM EDT from Last 3 Months Results * CT abdomen pelvis wo IV [...] CT PROCEDURES Final Result * NON-[facility] HIE UA WITH CULT RFLX SP (04/08/2025 11:23 PM EDT)ComponentValueRef RangeTest MethodAnalysis TimePerformed AtPathologist SignatureNON- HIE UA Spec DescClean CatchBETHESDA NORTH HOSPITALpecimen (Source)Anatomical Location / LateralityCollection Method / VolumeCollection TimeReceived Time [facility] Lab- Urine04/08/2025 11:23 PM EDT Narrative Authorizing ProviderResult TypeResult StatusJignesh Dumont DOLAB BLOOD ORDERABLES Final ResultPerforming OrganizationAddressCity/State/ZIP CodePhone Number [facility] [address] [place] [address], * (ABNORMAL) NON-UH HIE UA WITH CULT RFLX (04/08/2025 11:23 PM EDT)Component ValueRef RangeTest MethodAnalysis TimePerformed AtPathologist SignatureNON- HIE UA ColorColorless(A)YellowOHIOHEALTH HARDIN MEMORIAL HOSPITALComment:Microscopic readings are only performed on those samples that meet specific criteria set forth by [facility].NON-[facility] HIE UA ClarityClear ClearOHIOHEALTH HARDIN MEMORIAL HOSPITALNON- HIE UA Spec Grav1.0091.005 - 1.030 [facility]ITALNON- HIE UA pH7.55.0 - 9.0[facility] HIE UA ProteinNegativeNegative mg/dLOHIOHEALTH HARDIN MEMORIAL HOSPITAL NON-UH HIE UA GlucoseNegativeNegative mg/dLOHIOHEALTH HARDIN MEMORIAL HOSPITALNON-UH HIE UA KetonesNegativeNegative mg/dLOHIOHEALTH HARDIN MEMORIAL HOSPITALNON-UH HIE UA BiliNegativeNegative mg/dLOHIOHEALTH HARDIN MEMORIAL HOSPITALNON- HIE UA Blood NegativeNegative mg/dLSUBURBAN COMMUNITY [facility]OSPITAL [facility] HIE UA NitriteNegative Negative mg/dLSUBURBAN COMMUNITY [facility]OSPITAL & [facility] HIE UA UrobilinogenNegative Negative mg/dLKETTERING HEALTH BEHAVIORAL MEDICAL CENTERE UA Leuk EstNegative Negative CD:[id number] NORTH HOSPITALpecimen (Source)Anatomical Location / LateralityCollection Method / VolumeCollection TimeReceived Time [facility] Lab- Urine04/08/2025 11:23 PM EDT Narrative Authorizing ProviderResult TypeResult StatusJignesh Dumont DOL BLOOD ORDERABLES Final ResultPerforming OrganizationAddressCity/State/ZIP CodePhone Number [facility] [address] [place] [address], * (ABNORMAL) NON- HIE CBC w/ Auto Diff (04/08/2025 11:23 PM EDT)ComponentValue Ref RangeTest MethodAnalysis TimePerformed AtPathologist SignatureECU HEALTH DUPLIN [facility] WBC8.94.0 - 11.0 E9/[facility]ALE RBC4.74.3 - 5.9 E12/[facility]ALE HGB12.012.0 - 16.0 gm/dLKETTERING HEALTH BEHAVIORAL MEDICAL CENTERE HCT35.934.0 - 46.0 %[facility]ALE RDW21.2(H)10.9 - 14.2 %[facility] MCH 25.9(L)27.0 - 34.0 pgFKETTERING HEALTH [facility] HIE MCHC33.631.4 - 36.0 gm/dLKETTERING HEALTH BEHAVIORAL MEDICAL CENTERE MCV77.1(L)80.0 - 100.0 fLSUBURBAN COMMUNITY [facility]OSP[facility] HIE MPV7.56.4 - 10.8 fLHOCKING VALLEY COMMUNITY HOSPITALE HOZRBKHP894.0150.0 - 500.0 E9/[facility]ITALE NEUTRO AUTO58.036.0 - 75.0 %[facility] LYMPH AUTO35.714.0 - 50.0 %[facility] BEHAVIOR[facility] MED[facility] CENTERE MONO AUTO5.44.0 - 14.0 %[facility] HIE EOS AUTO0.10.0 - 8.0 %[facility] HIE BASOPHIL AUTO0.80.0 - 2.0 %[facility] HIE NEUTRO ABSOLUTE5.12.0 - 7.5 E9/LFST. [facility]LES [facility] NON- HIE LYMPH ABSOLUTE3.21.0 - 4.0 E9/LFKETTERING HEALTH [facility] HIE MONO ABSOLUTE0.50.2 - 1.0 E9/LFKETTERING HEALTH [facility] HIE EOS ABSOLUTE0.00.0 - 0.5 E9/LFKETTERING HEALTH [place] HIE BASOPHIL ABSOLUTE0.10.0 - 0.2 E9/LFBARBERTON CITIZENS HOSPITALpecimen (Source) Anatomical Location / LateralityCollection Method / VolumeCollection Time Received TimeHOLDENVIL[facility] [place] Lab- Blood04/08/2025 11:23 PM EDT Narrative Authorizing ProviderResult TypeResult StatusJignesh Dumont DOL BLOOD ORDERABLES Final ResultPerforming OrganizationAddressCity/State/ZIP CodePhone Number [facility] [address] [phone], * (ABNORMAL) NON- HIE BMP (04/08/2025 11:23 PM EDT)ComponentValueRef RangeTest MethodAnalysis TimePerformed AtPathologist SignatureREGENCY HOSPITAL OF NORTHWEST INDIANAE GLUCOSE CRK515 55 - 199 mg/dLKETTERING HEALTH BEHAVIORAL MEDICAL CENTERE BUN75 - 21 mg/dLKETTERING HEALTH BEHAVIORAL MEDICAL CENTERE CREATININE0.70.5 - 1.3 mg/dLKETTERING HEALTH [facility] BUN/CREAT YLPIN5586 - 20 No UnitsKETTERING HEALTH – [facility] CALCIUM LVL9.58.9 - 11.1 mg/dLMORROW COUNTY HOSPITALE SODIUM ZWE263254 - 145 mmol/LFKETTERING HEALTH [facility] HIE POTASSIUM LVL3.4(L)3.5 - 5.3 mmol/LFKETTERING HEALTH [place] HIE IHENHBBF779991 - 111 mmol/[facility] CENTERNON-[facility] HIE CO220(L)21 - 31 mmol/LFST. CHARLES HOSPITALNON-UH HIE PQWI296 - 16 mEq/LFBARBERTON CITIZENS HOSPITALpecunc health rex holly springsn (Source)Anatomical Location / LateralityCollection Method / VolumeCollection TimeReceived TimeHOLDENVILLE [facility]AL [facility]OS[facility] [place] Lab- Blood04/08/2025 11:23 PM EDT Narrative Authorizing ProviderResult TypeResult StatusJignesh FOSTERAB BLOOD ORDERABLES Final ResultPerforming OrganizationAddressCity/State/ZIP CodePhone Number [address] [address], * NON-UH HIE eGFR (04/08/2025 11:23 PM EDT)ComponentValueRef RangeTest Method Analysis TimePerformed AtPathologist SignatureNON- HIE UGYA489>=59 mL/min/1.73 a9FFMNMUBETHESDA NORTH HOSPITALpecunc health rex holly springsn (Source)Anatomical Location / LateralityCollection Method / VolumeCollection TimeReceived TimeHOLDENVILLE GENERAL [facility] [place] Lab- Blood04/08/2025 11:23 PM EDT Narrative Authorizing ProviderResult TypeResult StatusJignesh Dumont DOLAB BLOOD ORDERABLES Final ResultPerforming OrganizationAddressCity/State/ZIP CodePhone Number [address] [address], * NON-UH HIE B hCG Qual (04/08/2025 11:23 PM EDT)ComponentValueRef RangeTest MethodAnalysis TimePerformed AtPathologist SignatureNON- HIE Beta hCG Ql NEGATIVEHolzer Hospital (Source)Anatomical Location / LateralityCollection Method / VolumeCollection TimeReceived TimeHOLDENVILLE GENERAL [facility]OSP[facility] [place] [facility]- Blood04/08/2025 11:23 PM EDT Narrative Authorizing ProviderResult TypeResult StatusJignesh Dumont DOLAB BLOOD ORDERABLES Final ResultPerforming OrganizationAddressCity/State/ZIP CodePhone Number [address] [address], from Last 3 Months Care Teams Team MemberRelationshipSpecialtyStart DateEnd Date Aristides Merino DO PCP - General08/06/20
--- OUTSIDE RECORDS SUMMARY | 2025-04-10 18:01 | XMS_ITS | Patient Health Record ---
Author Organization [id number] Address [address] [place], [place] [address] Care Team Providers Care Media Executive Name Role Phone Dr. Dennis Camacho Primary Care Provider Reason For Referral No Information Plan Of Treatment No Information Insurance Providers Payer Name Payer Address Payer Phone Subscriber Number Group Number Insured Name Patient Relationship to Insured Coverage Start Date Coverage End Date [facility] [address] [place] [address] [id number] [facility] is the spouse of the [id number] 2023
--- OUTSIDE RECORDS SUMMARY | 2025-04-10 18:01 | XMS_ITS | Clinical Summary ---
Author Organization [facility] Address [address], [address] [place] [address] Care Team Providers Care Fluid Pump Operator Name Role Phone Unavailable Primary Care Provider Unavailabl e Allergies Active AllergyReactionsCriticalityNoted DateCommentsProchlorperazineAnxietyLow 05/30/20238170KnprmuqjCgjomjx03/18/2023 Medications MedicationSigDispense QuantityRefillsLast FilledStart DateEnd DateStatus citalopram (CELEXA) 20 MG tablet Take 1 tablet by mouth dailyActive ALPRAZolam (XANAX) 0.25 MG tablet Take 1 tablet by mouth 3 times daily as needed for Anxiety.Active ondansetron (ZOFRAN) 4 MG tablet Take 1 tablet by mouth 3 times daily as needed for Nausea or Vomiting 9 tablet 09/06/2023ctive Additional Information Patient not taking.Reported on 01/22/2024 ketorolac (TORADOL) 10 MG tablet Take 1 tablet by mouth every 6 hours as neededActive atenolol (TENORMIN) 25 MG tablet Take 1 tablet by mouth daily01/19/2024ctive ondansetron (ZOFRAN-ODT) [address] 1 tablet under the tongue every 8 hours as needed for Nausea or Vomiting 10 tablet 01/22/2024ctive Active Problems No known active problems Social History Tobacco UseTypesPacks/DayYears UsedDateSmoking Tobacco: NeverSmokeless Tobacco: Never Tobacco Cessation:Counseling Given: Not Answered Alcohol UseStandard Drinks/WeekCommentsNot Currently0 (1 standard drink = 0.6 oz pure alcohol)socialAUDIT-CAnswerDate RecordedQ1: How often do you have a drink containing alcohol?Monthly or less06/27/2024Q2: How many drinks containing alcohol do you have on a typical day when you are drinking?1 or Q3: How often do you have six or more drinks on one occasion?Less than monthly 06/27/2024Interpersonal Safety Domain Source: IP Abuse ScreeningAnswerDate RecordedPhysical jedawJdxizm56/16/2025Verbal indldIfpqcd80/16/2025Emotional cbnicDtvyme62/16/2025Financial frwufPvmyhm59/16/2025Sexual hfxzbVjwiya98/16/2025 CommentsNoSex and Gender InformationValueDate RecordedSex Assigned at BirthNot on fileLegal JrwZpyubq00/18/2023 3:37 PM ESTGender IdentityNot on file Sexual OrientationNot on file Last Filed Vital Signs Vital SignReadingTime TakenCommentsBlood Scsglmjq808/6533507/29/2024 7:10 PM EST Pdtrw23431/16/2025 7:10 PM NIFLaxdjnesbmb35.8 ??C (98.3 ??F)07/29/2024 7:10 PM ESTRespiratory Mpcs304807/29/2024 7:10 PM ESTOxygen Qmbfptrofd59%07/29/2024 7:10 PM ESTInhaled Oxygen Concentration--Sskbji61.5 kg (195 lb)07/29/2024 7:10 PM EST Raymbk158.1 cm (5' 5 )07/29/2024 7:10 PM ESTBody Mass Index32.45007/29/2024 7:10 PM EST Plan of Treatment Health MaintenanceDue DateLast DoneCommentsDepression Aytuxh9101/10/1999Varicella vaccine (1 of 2 - 13+ 2-dose series)01/11/2000HIV smkkvp4701/10/2002Hepatitis C uudxbu3301/10/2005DTaP/Tdap/Td vaccine (1 - Tdap)2006Hepatitis B vaccine (1 of 3 - 19+ 3-dose series)2006Flu vaccine (#1)/, 03/13/2023OVID-19 Vaccine ( - 2024- season)/, 06/04/2020 HPV vaccine (No Doses Required)CompletedHepatitis A vaccineAged OutNo longer eligible based on patient's age to complete this topicHib vaccineAged OutNo longer eligible based on patient's age to complete this topicMeningococcal (ACWY) vaccineAged OutNo longer eligible based on patient's age to complete this topicMeningococcal B vaccineAged OutNo longer eligible based on patient's age to complete this topicPneumococcal 0-49 years VaccineAged OutNo longer eligible based on patient's age to complete this topicPolio vaccineAged OutNo longer eligible based on patient's age to complete this topic Insurance
--- OUTSIDE RECORDS SUMMARY | 2025-04-10 18:01 | XMS_ITS | Clinical Summary ---
Author Organization [facility] Address [address] [place] [address] Care Team Providers Care Alumni Relations Manager Name Role Phone Aristides Merino MD Primary Care Provider [phone] Allergies Active AllergyReactionsCriticalityNoted DhoiWqxophvqVxaklxfr14/06/2023 Other Reaction(s): Dr. Moon/ Dizzy MorphineItching,Jfzjpve7206/20/2018 Other Reaction(s): Other: See Comments Spasms Neqzdqjmjyd93/06/5568OkgpjirqmbddkqohHuoxovdInq79/13/2023 Other Reaction(s): Jittery Medications MedicationSigDispense QuantityRefillsLast FilledStart DateEnd DateStatus ALPRAZolam (Xanax) 0.25 MG tablet Take 0.25 mg by mouth as needed at bedtimeActive citalopram (CeleXA) 20 MG tablet Take 20 mg by mouth in the morning.Active Active Problems ProblemNoted DateDiagnosed OzkqWwrzkqxaufmgv30/11/2024 Family History Medical HistoryRelationNameCommentsBreast cancerMaternal GrandmotherBreast cancerPaternal GrandmotherRelationNameStatusCommentsMaternal GrandmotherPaternal Grandmother Social History Tobacco UseTypesPacks/DayYears UsedDateSmoking Tobacco: Never Assessed CommentsUnknownSex and Gender InformationValueDate RecordedSex Assigned at Not on fileLegal AwrDzijqf69/15/2023 10:02 PM EDTGender IdentityNot on file Sexual OrientationNot on file Last Filed Vital Signs Vital SignReadingTime TakenCommentsBlood Chnwehyp700/7405 2:22 PM EDT Pulse--Temperature--Respiratory Rate--Oxygen Saturation--Inhaled Oxygen Concentration--Loqhwn93.3 kg (185 lb 12.8 oz)10/19/2023 2:22 PM RNYJounfb188.1 cm (5' 5 )11/25/2021 12:00 PM EDTBody Mass Index30.9211/25/2021 12:00 PM EDT Plan of Treatment Not on file Insurance Care Teams Team MemberRelationshipSpecialtyStart DateEnd Date Aristides Merino MD [address] [place] [id number] PCP - GeneralFamily Medicine09/27/23
--- OUTSIDE RECORDS SUMMARY | 2025-04-10 18:02 | XMS_ITS | Clinical Summary ---
Author Organization [facility] Address [address] [place], [place] [address] Care Team Providers Care Dry Plasterer Helper Name Role Phone Jennifer Merino DO Primary Care Provider [phone] Jennifer Merino DO Unavailable Avinash Velásquez MD Unavailable [phone] Allergies Active AllergyReactionsCriticalityNoted DateCommentsMorphineOther: See Comments 06/20/2018 Spasms Medications MedicationSigDispense QuantityRefillsLast FilledStart DateEnd DateStatus diphenhydrAMINE (BENADRYL) 25 mg capsule Take 25 mg by mouth every 6 hours as needed.Active Multivitamins-Iron tab Take 1 tablet by mouth once daily.Active citalopram (CELEXA) 20 mg tablet Take 20 mg by mouth once daily.Active ALPRAZolam (XANAX) 0.25 mg tablet TAKE 1 TABLET BY MOUTH EVERY 8 TO 12 HOURS NEEDED FOR QPOICLK9509/23/2020ctive Active Problems ProblemNoted DateDiagnosed DateIron deficiency anemia due to chronic blood loss 10/27/2020Malabsorption of iron10/27/2020Ovarian cyst05/30/2018 Overview (05/30/2018): Added automatically from request for surgery [id number] Wijkafvzmpkh36/18/2018 Overview (05/30/2018): Added automatically from request for surgery [id number] Pelvic pain05/30/2018 Overview (05/30/2018): Added automatically from request for surgery [id number] Immunizations ImmunizationAdministration DatesNext Dueinfluenza vaccine, unspecified nydupuzvrlb58/28/2023 Family History Medical HistoryRelationCommentsDiabetesFatherHeartFatherbypass surgery, stents, MIHyperlipidemiaFatherHypertensionFatherDiabetesMotherHyperlipidemiaMother HypertensionMotherRelationStatusCommentsFatherAliveMotherAlive Social History Tobacco UseTypesPacks/DayYears UsedDateSmoking Tobacco: NeverPassive Smoke Exposure: PastSmokeless Tobacco: Never Tobacco Cessation:Counseling Given: Not Answered Alcohol UseStandard Drinks/WeekCommentsYes0 (1 standard drink = 0.6 oz pure alcohol)sociallyPHQ-2AnswerDate RecordedPHQ2 Beogn063Area Deprivation IndexAnswerDate RecordedNational Score (1-100), lower number is lower risk78 06/23/2023State Score (1-10), lower number is lower fzgz7754Data from: https://www.neighborhoodatlas.medicine.[facility].edu/. Last address used for vkkpaeknhqw[address]4CommentsNoSex and Gender Information ValueDate RecordedSex Assigned at BirthNot on fileLegal MjnHkzulp70/02/2012 8:14 AM ESTGender IdentityNot on fileSexual OrientationNot on file Last Filed Vital Signs Vital SignReadingTime TakenCommentsBlood Vlzpcnxv883/9501 10:16 PM EST Dgckt1600 10:16 PM OLSKdgzivvwjqx88.2 ??C (97.2 ??F)06/22/2023 5:34 PM ESTRespiratory Qzqa684106/22/2023 10:16 PM ESTOxygen Tgbhomagtp761%06/22/2023 10:16 PM ESTInhaled Oxygen Concentration--Aoblpv52 kg (183 lb)06/22/2023 5:34 PM LSBWgjwmu539.1 cm (5' 5 )03/10/2022 1:54 PM EDTBody Mass Index30.45003/10/2022 1:54 PM EDT Plan of Treatment Health MaintenanceDue DateLast DoneCommentsAnxiety Oyvaespma96/31/2005Depression Ahhrkvcet60/31/2005HIV Yccmdzmeg41/31/2005DTaP,Tdap,Td Vaccine (1 - Tdap) 2006Hepatitis B Vaccine (1 of 3 - 19+ 3-dose series)2006Cervical Cancer Wwgwvqmql20/31/2008HPV Vaccine (1 - 3-dose SCDM series)2014Covid-19 Vaccine (3 - season)/, 06/04/2020Influenza Vaccine (#1)/, 03/13/2023, 03/31/2021Hepatitis C ScreeningCompleted 06/22/2023 Procedures Procedure NamePriorityDate/TimeAssociated DiagnosisCommentsHEPATITIS C VIRUS (HCV) RNA, QUANTITATIVE PCR, PLASMA/LJWCUMQGM16/10/2024 10:12 PM EST from Last 3 Months or Most Recently Relevant to Health Maintenance Results * HCV QUANT RNA BY PCR (06/22/2023 10:12 PM EST)ComponentValueRef RangeTest MethodAnalysis TimePerformed AtPathologist SignatureHCV RNAHCV RNA not detected by PCR.HCV RNA not detected by PCR. GEOVANNA ROSEMARIE 6800 06/23/2023 10:15 AM ESTKET[facility] LABSpecimen (Source) Anatomical Location / LateralityCollection Method / VolumeCollection Time Received TimeBloodBLOOD SPECIMEN / UnknownVenipuncture / Pemkqqa4106/22/2023 10:12 PM EST06/22/2023 10:15 PM EST Narrative [facility] - 06/23/2023 10:15 AM EST The Linear Range of this assay is 15 IU/ml to 100,000,000 IU/ml Authorizing ProviderResult TypeResult StatusBrent Kiko Griffin MDLABORATORY Final ResultPerforming OrganizationAddressCity/State/ZIP CodePhone Number [facility] [address] [facility] [address] [address], from Last 3 Months or Most Recently Relevant to Health Maintenance Insurance Care Teams Team MemberRelationshipSpecialtyStart DateEnd Date Jennifer Merino DO [address] [place] [phone] PCP - General11/27/07 Jennifer Merino DO [address] [place] [phone] ReferringFamily Bxadeqpq05/22/19 Avinash Velásquez MD [address] [place] [phone] ReferringOb/Gyn11/30/21
--- OUTSIDE RECORDS SUMMARY | 2025-04-10 18:02 | XMS_ITS | Clinical Summary ---
Author Organization [employer] tem Address [id number] [address] [place] [address] Care Team Providers Care Entertainment Usher Name Role Phone No Pcp, No Pcp Primary Care Provider Unavailabl e Allergies Active AllergyReactionsCriticalityNoted EpsdQviqsqgfAjwhkidpudcwmfkg57/13/2023 Lfboesah75/13/2023 Medications MedicationSigDispense QuantityRefillsLast FilledStart DateEnd DateStatus citalopram (CeleXA) 20 mg tablet Take 1 tablet (20 mg total) by mouth nightly.Active ALPRAZolam (XANAX) 0.25 mg tablet Take 1 tablet (0.25 mg total) by mouth every 8 (eight) hours as needed for anxiety.Active ketorolac (TORADOL) 10 mg tablet Take 1 tablet (10 mg total) by mouth every 6 (six) hours as needed for pain. Active atenoloL (TENORMIN) 25 mg tablet Take 1 tablet (25 mg total) by mouth in the morning.01/19/2024ctive ibuprofen (MOTRIN) 800 mg tablet Take 1 tablet (800 mg total) by mouth every 8 (eight) hours. 60 tablet 04/06/2024ctive acetaminophen (TYLENOL EXTRA STRENGTH) 500 mg tablet Take 2 tablets (1,000 mg total) by mouth every 8 (eight) hours. 60 tablet 04/06/2024ctive sennosides-docusate sodium (SENNA WITH DOCUSATE SODIUM) 8.6-50 mg Take 1 tablet by mouth in the morning and 1 tablet before bedtime. 60 tablet 04/06/2024ctive naloxone (NARCAN) 4 mg/actuation spray,non-aerosol nasal spray Administer 1 spray (4 mg total) into alternating nostrils as needed for opioid reversal. 2 each 04/06/2024ctive estradiol-norethindrone acet (COMBIPATCH) 0.05-0.14 mg/[address] 1 patch on the skin 2 (two) times a week. 24 patch ctive ondansetron ODT (ZOFRAN ODT) 4 mg disintegrating tablet Dissolve 1 tablet (4 mg total) on tongue every 8 (eight) hours as needed for nausea for up to 10 doses. 10 tablet 09/28/2024tive Active Problems ProblemNoted DateDiagnosed DateChronic abdominal pain10/01/2024Ovarian remnant eodmkskw50/21/8986Wwccxyodutic00/29/2024reop vnficit4703/30/2024Endometriosis 11/09/2023 Encounters DateTypeDepartmentCare FxwkHjsylyqhroe42/07/2025 7:42 PM EDT - 02/17/2025 9:55 PM EDTEmergency [facility] [address] [place] [id number] Dev Abel, Chronic abdominal pain (Primary Dx) Discharge Disposition: Home02/17/2025Travelfrom Last 3 Months Family History Medical HistoryRelationNameCommentsAnesthesia problemsNeg Hx Social History Tobacco UseTypesPacks/DayYears UsedDateSmoking Tobacco: NeverSmokeless Tobacco: Never Tobacco Cessation:Counseling Given: Not Answered Alcohol UseStandard Drinks/WeekCommentsNot Currently0 (1 standard drink = 0.6 oz pure alcohol)monthlyChildcareAnswerDate VqjnejaaObjnamqhbPnzmqgt23/10/2019 EmploymentAnswerDate TdojhaxpUgzvrrswsuHcvshoh17/10/2019Hunger ScreeningAnswer Date RecordedWithin the past 12 months we worried whether our food would run out before we got money to buy more.Never True02/17/2025Within the past 12 months the food we bought just didn't last and we didn't have money to get more.Never True02/17/2025CommentsNoSex and Gender InformationValueDate RecordedSex Assigned at BirthNot on fileLegal HhpVtyczh89/04/2015 2:15 PM EDTGender Identity Not on fileSexual OrientationNot on file Last Filed Vital Signs Vital SignReadingTime TakenCommentsBlood Qoxcvsav056/9509/12/2024 7:45 PM EDT Udfdu215902/17/2025 6:25 PM ACRGqxuicpycmu22.5 ??C (99.5 ??F)02/17/2025 6:25 PM EDTRespiratory Qhbh733302/17/2025 6:25 PM EDTOxygen Dtgbrnscvc537%02/17/2025 7:45 PM EDTInhaled Oxygen Concentration--Ntrvct11.9 kg (185 lb)02/17/2025 6:25 PM EDT Mqggdx771.1 cm (5' 5 )02/17/2025 6:25 PM EDTBody Mass Index30.7902/17/2025 6:25 PM EDT Plan of Treatment Health MaintenanceDue DateLast DoneCommentsDepression Igvbqccdu06/31/1999Adult BMI Follow Up Plan2005DTaP,Tdap and Td Vaccines (1 - Tdap)2006COVID- 19 Vaccine (3 - 2024- season)/, 06/04/2020Influenza Vaccine /, 03/13/2023dult BMI Oizzfxnwm22/12/2024Tobacco Ngahtlryd85Pap QwljcGsprincjyglm79/15/2022 Medical Devices Not on file Procedures Procedure NamePriorityDate/TimeAssociated PdqosjpnpIqtvxtphFKSMMBQESK06/07/2025 6:33 PM EDT COMPREHENSIVE METABOLIC TLSPDLOHL57/07/2025 6:33 PM EDT CBC WITH AUTO SCRUFJBUVDMTNJAS44/07/2025 6:33 PM EDT EXTRA TUBES TRIANA TOP ON XWYQielugh11/07/2025 6:30 PM EDT EXTRA GSJAGDfgyoyh61/07/2025 6:30 PM EDT from Last 3 Months Results * (ABNORMAL) CBC auto differential (02/17/2025 6:33 PM EDT)ComponentValueRef RangeTest MethodAnalysis TimePerformed AtPathologist YewedilnrVJQ71.8(H)4 - 11 x10E9/L02/17/2025 6:45 PM EDTPAKRON CHILDREN'S HOSPITALRBC Count4.78 3.8 - 5.2 X10E12/L02/17/2025 6:45 PM [facility] Ocuaagddmm83.6(L)11.7 - 15.5 g/dL02/17/2025 6:45 PM EDTPAKRON CHILDREN'S HOSPITALHematocrit35.635 - 47 %02/17/2025 6:45 PM EDTPAKRON CHILDREN'S HOSPITALMCV74(L)80 - 100 fL02/17/2025 6:45 PM EDTPAKRON CHILDREN'S HOSPITALMCH24.2(L)27 - 34 pg02/17/2025 6:45 PM EDTPAKRON CHILDREN'S HOSPITALMCHC32.632 - 36 g/dL02/17/2025 6:45 PM EDTPAKRON CHILDREN'S HOSPITALRDW19.2(H)11.5 - 15 %02/17/2025 6:45 PM EDTHE [facility]OSPITALPlatelet Ptknv186(H)150 - 450 X10E9/L02/17/2025 6:45 PM EDTPAKRON CHILDREN'S HOSPITALMPV7.17 - 12 fL02/17/2025 6:[address] [facility]ITALNeutrophils %69.3%02/17/2025 6:[address] [facility]OSPITALLymphocytes %24.5%02/17/2025 6:[address] [facility]ITALMonocytes %5.3%02/17/2025 6:[address] [facility]ITALEosinophils %0.3%02/17/2025 6:[address] [facility]PITALBasophils %0.6%02/17/2025 6:[address] [facility]OSPITALNeutrophils Absolute (A)8.2(H)1.5 - 6.6 10*3/uL02/17/2025 6:45 PM EDTHE [facility]OSPITALLymphocytes Absolute2.91.0 - 3.5 10*3/02/17/2025 6:45 PM EDTPAKRON CHILDREN'S HOSPITALMonocytes Absolute0.60.0 - 0.9 10*3/02/17/2025 6:45 PM EDTHE [facility]PITALEosinophils Absolute0.00.0 - 0.4 10*3/02/17/2025 6:45 PM EDTPAKRON CHILDREN'S HOSPITALBasophils Absolute0.10.0 - 0.2 10*3/02/17/2025 6:45 PM EDTHE [facility] HOSPITALDifferential TypeAUTOMATED BEUCFKVNHVUO34/07/2025 6:45 PM EDMARTIN MEMORIAL HOSPITALpecoptim [facility] [place] (Source)Anatomical Location / LateralityCollection Method / VolumeCollection TimeReceived TimeBloodVenous blood / UnknownVenipuncture / Dxswrac6102/17/2025 6:33 PM EDT02/17/2025 6:36 PM EDT Narrative Authorizing ProviderResult TypeResult StatusMaxturner FOSTERAB BLOOD ORDERABLESFinal ResultPerforming OrganizationAddressty/State/ZIP CodePhone Number [address] [place] [address], * Lipase (02/17/2025 6:33 PM EDT)ComponentValueRef RangeTest MethodAnalysis Time Performed AtPathologist KtcflvgcjQYTCDB1670 - 40 U/L02/17/2025 6:53 PM EDT [facility] (Source)Anatomical Location / LateralityCollection Method / VolumeCollection TimeReceived TimeBloodVenous blood / UnknownVenipuncture / Fckylwp8802/17/2025 6:33 PM EDT02/17/2025 6:36 PM EDT Narrative Authorizing ProviderResult TypeResult StatusMaxturner Abel DOLAB BLOOD ORDERABLESFinal ResultPerforming OrganizationAddressCity/State/ZIP CodePhone Number [address] [place] [place] [address], * (ABNORMAL) Comprehensive metabolic panel (02/17/2025 6:33 PM EDT)Component ValueRef RangeTest MethodAnalysis TimePerformed AtPathologist SignatureSODIUM 129175 - 146 mmol/L02/17/2025 6:55 PM ED[facility] POTASSIUM3.63.5 - 5.0 mmol/L02/17/2025 6:55 PM EDTHE [facility] HOSPITALCHLORIDE10498 - 109 mmol/L02/17/2025 6:55 PM EDTHE [facility] HOSPITALCARBON WKWVXGW96(L)22 - 32 mmol/L02/17/2025 6:55 PM EDT [facility]SH[facility] CENTERANION DBR737 - 15 mmol/L02/17/2025 6:55 PM EDTHE [facility] HOSPITALBLOOD UREA UWTLEWME90 - 23 mg/dL 02/17/2025 6:55 PM [facility]PITALCREATININE0.870.40 - 1.00 mg/dL02/17/2025 6:55 PM [facility]PITALComment: METHOD TRACEABLE TO IDMS KJQDSLAQXKXURXD597(H)65 - 99 mg/dL02/17/2025 6:55 PM [facility] HOSPITALCALCIUM9.08.5 - 10.5 mg/dL02/17/2025 6:55 PM [facility]OSPITALTOTAL PROTEIN8.06.0 - 8.0 g/dL 02/17/2025 6:55 PM EDTHE [facility]OSPITALALBUMIN4.13.2 - 5.3 g/dL02/17/2025 6:55 PM [facility]OSPITALALKALINE FLRIESNFRYG6473 - 130 U/L02/17/2025 6:55 PM [facility]ITALAST24<=41 U/L02/17/2025 6:55 PM [facility] ALT21<=31 U/L02/17/2025 6:55 PM [facility] BILIRUBIN,TOTAL0.70.3 - 1.2 mg/dL02/17/2025 6:55 PM [facility] HOSPITALEGFR Non-Race Uzozzmdtk46>=60 ml/min/1.73sq.m002/17/2025 6:55 PM [facility]OSPITALComment: eGFR not reported due to non-numeric value for Creatinine. Reported eGFR is based on the CKD-EPI 2020 equation that does not use a race coefficient. Specimen (Source)Anatomical Location / LateralityCollection Method / Volume Collection TimeReceived TimeBloodVenous blood / UnknownVenipuncture / Unknown 02/17/2025 6:33 PM EDT02/17/2025 6:36 PM EDT Narrative Authorizing ProviderResult TypeResult StatusDev STEVE BLOOD ORDERABLESFinal ResultPerforming OrganizationAddressCity/State/ZIP CodePhone Number [address] [address], * Triana Top On Ice (02/17/2025 6:30 PM EDT)ComponentValueRef RangeTest Method Analysis TimePerformed AtPathologist SignatureExtra TubeAuto Resulted 02/17/2025 8:01 PM [facility] SOUTHpecimen (Source) Anatomical Location / LateralityCollection Method / VolumeCollection Time Received TimeBloodVenous blood / Wshxykk2002/17/2025 6:30 PM EDT02/17/2025 6:36 PM EDT Narrative Authorizing ProviderResult TypeResult StatusGabriela ALICEACNPLAB BLOOD ORDERABLESFinal ResultPerforming OrganizationAddressty/State/[facility] CodePhone Number [address] [address], from Last 3 Months Insurance Advance Directives * Full Code (Latest Code Status on File) Date ActivatedDate JyvuejlkjrkFpskakho84/29/2024 11:25 AM06/10/2024 4:46 PM Care Teams Team MemberRelationshipSpecialtyStart DateEnd Date No Pcp, [place] [address] [facility]
--- OUTSIDE RECORDS SUMMARY | 2025-04-10 18:02 | XMS_ITS | Clinical Summary ---
Author Organization [facility] Address [address] [place] [address] Care Team Providers Care Claim Manager Name Role Phone Unavailable Primary Care Provider Unavailabl e Allergies Active AllergyReactionsCriticalityNoted JmpwZlivwkteTvecgaeqgtpstdft40/19/2025 MorphineHives,TwlhmuvDpfvbt41/08/2019 Other Reaction(s): Other, Other: See Comments, Unknown, Unknown Reaction Other Reaction(s): Other: See Comments Spasms Spasms Other Reaction(s): Other: See Comments ??Spasms Spasms Medications MedicationSigDispense QuantityRefillsLast FilledStart DateEnd DateStatus Multiple Vitamins-Iron (QC Daily Multivitamins/Iron) tablet Take 1 tablet by mouth daily.Active ALPRAZolam 0.25 MG tablet Take 1 tablet by mouth.09/14/2023ctive Atenolol 25 MG tablet Take 1 tablet by mouth daily.01/19/2024ctive Citalopram 20 MG tablet Take 1 tablet by mouth daily.03/29/2023ctive clindamycin 300 MG capsule 02/13/2024ctive Fluconazole 150 MG tablet TAKE 1 TABLET BY MOUTH ONCE01/30/2024ctive ketorolac 10 MG tablet Take 1 tablet by mouth Every 6 hours as needed.Active nabumetone 750 MG tablet take 1 tablet by mouth every 12 hours as needed for pain05/08/2023ctive Ondansetron 4 MG Tab Dispersible tablet Place 1 tablet under tongue.01/22/2024ctive traMADol 50 MG tablet TAKE 1 TABLET BY MOUTH EVERY 6 HOURS NEEDED FOR PAIN FOR UP TO 3 DAYS. TAKE LOWEST DOSE MIPQOVDC32/11/2024ctive oxyCODONE-acetaminophen 5-325 MG per tablet Indications:Lower abdominal painTake 1 tablet by mouth every 6 hours as needed for Moderate Pain for up to 7 days. 20 tablet 09/05/2024Active naloxone 4 MG/0.1ML 1 spray by Nasal route once for 1 dose. [place] into the nose as directed. Call 911. If no response in 2 minutes use a new nasal spray in other nostril. Repeat until help arrives. 1 Each 4Active hydroCODone-acetaminophen 5-325 MG tablet Indications:Pelvic and perineal pain,Endometriosis,Ovarian remnant syndromeTake 1 tablet by mouth every 6 hours as needed for Severe Pain or Moderate Pain for up to 3 days. 12 tablet 5Active Social History Tobacco UseTypesPacks/DayYears UsedDateSmoking Tobacco: NeverSmokeless Tobacco: Never Tobacco Cessation:Counseling Given: Not Answered Alcohol UseStandard Drinks/WeekCommentsYes0 (1 standard drink = 0.6 oz pure alcohol)socialCommentsNoSex and Gender InformationValueDate RecordedSex Assigned at BirthNot on fileLegal FrzZxyytz29/05/2024 12:50 PM EDTGender IdentityNot on fileSexual OrientationNot on file Last Filed Vital Signs Vital SignReadingTime TakenCommentsBlood Yefkjach046/8308/01/2024 7:22 PM EST Dzxrq04310/19/2025 7:22 PM AFMKpvtskolboh95.4 ??C (99.4 ??F)08/01/2024 7:22 PM ESTRespiratory Xtdi277308/01/2024 7:22 PM ESTOxygen Itqayykfly737%08/01/2024 7:22 PM ESTInhaled Oxygen Concentration--Weight--Dcbwcv174.1 cm (5' 5 )02/24/2024 8:29 PM EDTBody Mass Index-- Plan of Treatment Health MaintenanceDue DateLast DoneCommentsHEPATITIS C VIRUS EMRPLXHOJ1987 GBAWMZY66 1987HIV SCREENING YOQRPIBBWU34/31/2002HEP B VACCINE (1 of 3 - 19+ 3-dose series)2006TDAP (ADULT)2006CERVICAL CANCER SCREENING AMAKTRIFXU29/31/2008HPV VACCINE (1 - 3-dose SCDM series)2014COVID-19 VACCINE ( season)501/, 06/04/2020INFLUENZA VACCINE (#1)512/, 3PNEUMOCOCCAL VACCINE SERIESAged OutNo longer eligible based on patient's age to complete this topic
--- OUTSIDE RECORDS SUMMARY | 2025-04-10 18:06 | XMS_ITS | CCD ---
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 Name Role Phone DO Jennifer Duran Primary Care Provider [phone] DO Augustus Santiago Attending Provider DO Amaury Barlow Emergency Provider Jennifer Duran Primary Care Physician Jennifer Duran Unavailable DO Jennifer Duran Primary Care Provider [phone] DO Jennifer Duran Attending Provider Jennifer Duran DO Primary Care Provider Jennifer Duran DO Unavailable Didier BARNETT, Penola P Unavailable Jennifer Duran DO Primary Care Provider Jennifer Duran DO Unavailable [phone] DO Jennifer Duran Primary Care Provider [phone] DO Jennifer Duran Attending Provider MD Yevgeniy Cabrera Jr Emergency Provider DO Kiko Saenz Admit Provider DO Kiko Saenz Attending Provider Jennifer Duran DO Primary Care Provider Jennifer Duran DO Unavailable [phone] Didier BARNETT, Penola P Unavailable [phone] JENNIFER DURAN Primary Care Unavailable MADYSON [...] Care Provider DO Elier Jackson Emergency Provider [phone] DO Sarah Childress Emergency Provider UnaMD Megan Gongora Admit Provider [phone] MD Megan Muniz Attending Provider DO Kiko Saenz Other Provider MD Christi Aquino Attending Provider DO Jaime Aleman Attending Provider LLC, GENERIC Primary Care Physician Unavailab DO Jennifer Rm Primary Care Provider DO Elier bacon Emergency Provider DO Jaime Aleman Attending Provider [phone] DO Sarah Childress Emergency Provider UnaMD [...] able DO Jennifer Duran Primary Care Provider [phone] CATY Corbett Emergency Provider [phone] DO Jennifer Duran Attending Provider [phone] Jennifer Duran Primary Care Unavailable Megan Muniz Admitting Unavailable Kiko Saenz Consulting Unavailable Daromar, Obaydah M Attending Unavailable Imani Corbett M Admitting Unavailable Girivelisse, Jennifer Primary Care Unavailable Imani Corbett M Attending Unavailable Manuel, Elier M Attending Unavailable Manuel, Elier M Admitting Unavailable NO FAMILY, PHYSICIAN Primary Care Unavailable Girivelisse, Jennifer Primary Care Unavailable Sarah Childress M Attending Unavailable Sarah Childress Admitting Unavailable Girvin, Jennifer Primary Care Unavailable Girivelisse, Jennifer Attending [...] Heath Attending Unavailable Konstantin Penny Attending Unavailable Ritesh Heath Attending Unavailable Jignesh Dumont Attending Unavailable Ritesh [...] Unavailable DONYA ROMANO Attending Unavailable Brielle, Neha Valenzuela Attending Unavailable Jordyn Willett Attending Unavailable Dimitri Vuong Attending Unavailable Neha Hannah Attending Unavailable Dimitri Vuong Attending Unavailable Jignesh Dumont Attending Unavailable Jignesh Dumont Attending Unavailable No Pcp, No Pcp Primary Care Provider Unavailmary e NO PCP, NO PCP Primary Care Unavailable GUSTAVO DAVIES Attending Unavailab le NEVERAUSROLANDO, GUSTAVO Hair Attending Unavailab le NEVERAUSKAGUSTAVO Lewis Referring Unavailab le NO PCP, NO PCP [...] Primary Care Unavailable SARAH LYNN Attending Unavailable Konstantin Penny Attending Unavailable Angeles Ellsworth Attending Unav ailable Jignesh Dumont Attending Unavailable Konstantin Penny Attending Unavailable Jignesh Dumont Attending Unavailable Allergies Allergy ClassificationReported Allergen(s)Allergy TypeDate of OnsetReaction(s) Facility (20 sources)Morphine; Translations: [MORPHINE]Drug Bnulsje79-44-7530Pnpmq: See Comments, Itching (finding), [facility], [facility] ([facility] sources)AtenololDrug Wohkxnr04-95-3464Iq. Red/ [facility] (6 sources)seasoninigPropensity to adverse reactionsUnknowAlbumatic Other (1 source)MorphineDrug Bnoskvk93-36-5664[facility]az[facility] (19 sources)Seasonal allergyPropensity to adverse gxaghwrcr51-45-3784Qneuzoi, [facility] ([facility] sources)Prochlorperazine; Translations: [prochlorperazine]Drug Allergy 63-00-2342Feuqyaq nervous (finding), AnxietyFisher [facility] (1 source)MorphineDrug Vmrazmj54-91-3878XqpqohmwqGrant [facility] (4 sources)AtenololPropensity to adverse reactions to hsds02-70-7406[facility] (4 sources)PhenothiazinePropensity to adverse reactions to fvsr29-27-5421 Anxiety, [facility]chingUniversity [facility] (4 sources)OctacosanolPropensity to adverse reactions to irpk07-83-1883[facility] (6 sources)No Known Medication Allergies; Translations: [No Known Medication Allergies]Propensity to adverse reactions (disorder)[facility] Repository Medications Current Medications MedicationDrug Class(es)DatesSig (Normalized)Sig (Original)acetaminophen 500 mg oral tablet (6 sources)Start: 63-70-4257nzhu 2 tablets by mouth every eight hours acetaminophen (TYLENOL EXTRA STRENGTH) 500 mg tablet Take 2 tablets (1,000 mg total) by mouth every8 (eight) hours. 60 tablet 04/06/2024 Activeacetaminophen 325 mg / HYDROcodone bitartrate 5 mg oral tablet (20 sources)Opioid AgonistStart: 64-15-7702Ofvv order is for a take home starter pack of medication. Please document Furnish to patient on the MAR.Start: 03-03-2024 End: tablet, Oral, ONCE, 1 dose, On 03/03/24 at 1615Start: 02-11-2024 End: 56-31-8871wfxz 1 tablet by mouth every six hours as needed for pain hydroCODone-acetaminophen 5-325 MG tablet Indications: Pelvic and perineal pain , Endometriosis , Ovarian remnant syndrome Take 1 tablet by mouth every 6 hours as needed for Severe Pain or Moderate Pain for up to 3 days. 12 tablet 07/14/2024 ActiveStart: 11-08-2023 End: 81-98-3241azkf 1 tablet by mouth every four to six hours as needed for pain Hydrocodone-Acetaminophen 5-325 mg tablet Discontinued 1 TAB PO EVERY 4-6 HOURS as needed for pain 12 November 08, 2023 January 19, 2024 11:18amStart: 09-14-2021 End: 13-11-5349lrfc 1 tablet by mouth three times daily as needed for pain Hydrocodone-Acetaminophen 5-325 mg tablet Discontinued 1 TAB PO Three times daily as needed for pain 9 September 14, 2021 April 28, 2022 1:50am acetaminophen 325 mg / oxyCODONE hydrochloride 5 mg oral tablet (20 sources)Opioid AgonistStart: 09-28-2024 End: 50-13-4286uita 1 tablet by mouth every eight hours as needed for pain, then take 3 tablets by mouth once daily as needed for painoxyCODONE-acetaminophen (PERCOCET) 5-325 mg per tablet Indications: Abdominal pain, unspecified abdo dilshad location Take 1 tablet by mouth every 8 (eight) hours as needed for pain for up to 5 days. 3 Day Supply Max Daily Amount: 3 tablets 15 tablet 09/28/2024 10/03/2024 ActiveStart: 06-25-2024 End: 56-19-2699Ofmcgpig 5 mg-325 mg oral tablet 1 tab(s), Oral, q8hr for 3 day(s), 9 tab(s), Refill(s) 0, [facility]/pharmacy #[id number], 165, cm, 06/24/24 19:33:00 EST, Height/Length Dosing, 89.9, kg, 06/24/24 19:33:00 EST, Weight Dosing Start Date: 06/25/24 Stop Date: 06/28/24 Status: OrderedStart: 01-27-2024 End: 69-58-3769dfro 1 tablet by mouth every six hours as needed for pain oxyCODONE-acetaminophen 5-325 MG per tablet Indications: Lower abdominal pain Take 1 tablet by mouth every 6 hours as needed for Moderate Pain for up to 7 days. 20 tablet 02/16/2024 ActiveStart: 07-31-2023 End: 05-64-8658Nonmtlha 5 mg-325 mg oral tablet 1 tab(s), Oral, q6hr Pain 8-10 for 3 day(s), 12 tab(s), Refill(s) 0, [facility]/pharmacy #[id number], 165.1, cm, 07/31/23 15:42:00 EST, Height/Length Dosing, 82.9, kg, 07/31/23 15:42:00 EST, Weight Dosing Start Date: 07/31/23 Stop Date: 08/03/23 Status: OrderedStart: 03-29-2023 End: 72-19-9626yjhm 1 tablet by mouth every eight hours as needed for pain Oxycodone-Acetaminophen (Endocet) 5-325 mg tablet Discontinued 1 TAB PO Q8H as needed for pain 2022April 30, 2023 6:33pmStart: 02-06-2023 End: 88-06-2715phkq 1 tablet by mouth every four to six hours as needed for pain Oxycodone-Acetaminophen (Percocet) 5-325 mg tablet Discontinued 1 TAB PO EVERY 4-6 HOURS as needed for Pain 10 February 06, 2023 March 29, 2023 1:48am amoxicillin 80 mg/ml oral suspension (1 source)Penicillin-class AntibacterialStart: 12-04-2021 End: 71-69-0890fmet 1000 mg by mouth every twelve hoursamoxicillin 400 mg/5 mL Oral Liq 1,000 mg = 12.5 mL, Oral, q12hr, X 10 day(s), # 250 mL, Refills(s)0, Pharmacy: [facility]/pharmacy #[id number], 166, cm, 12/04/21 12:54:00 EDT, Height/Length Dosing, 84, kg, 12/04/21 12:54:00 EDT, Weight Dosing Start Date: 12/04/21 Stop Date: 12/14/21 Status: Orderedamoxicillin 875 mg / clavulanate 125 mg oral tablet (20 sources)Penicillin-class AntibacterialStart: 59-36-1867pjev 1 tablet by mouth twice daily at mealtimeAmoxicillin-Pot Clavulanate 875-125 mg tablet Active 1 TAB PO Twice daily 01 04September 03, 2024 12:00am with foodStart: 02-13-2024 End: 92-11-5352Ddhljvanrlw-clavulanate 875-125 MG tablet Take by mouth. 02/13/2024 02/20/2024 ActiveStart: 02-13-2024 End: 50-13-7678Znoqnzquw 875 mg-125 mg Tab 1 tab(s), Oral, q12hr for 7 day(s), 14 tab(s), Refill(s) 0, [facility]/pharmacy #[id number], 165.1, cm, 02/13/24 0:28:00 EDT, Height/Length Dosing, 87.3, kg, 02/13/24 0:28:00 EDT, Weight Dosing Start Date: 02/13/24 Stop Date: 02/20/24 Status: OrderedStart: 07-28-2023 End: 04-81-9973mjns 1 tablet by mouth twice daily at mealtimeAmoxicillin-Pot Clavulanate 875-125 mg tablet Discontinued 1 TAB PO Twice daily 01 04October 04, 2023 10:41am October 18, 2023 3:11pm Take with foodStart: 52-50-1041hxhl 10 mL by mouth twice dailyAmoxicillin-Pot Clavulanate 600-42.9 MG/5ML 10 ml Orally bid for 10 days Apr, ActiveStart: 92-78-7213ugyn 1 tablet by mouth twice daily at mealtimeAmoxicillin-Pot Clavulanate 875-125 MG 1 tablet Orally bid with food for 10 days Feb, ActiveStart: 05-80-8513vzxv 10 mL by mouth twice daily at mealtimeAmoxicillin-Pot Clavulanate 600-42.9 MG/5ML 10 ml Orally bid with food for 10 days May, ActiveStart: 15-84-6648euje 10 mL by mouth twice daily at mealtimeAugmentin ES-600 600 mg-42.9 mg/5 ml 10 ml orally twice a day with food for 10 days Jan, ActiveStart: 69-48-7669wqqu 10 mL by mouth twice daily at mealtimeAmoxicillin-Pot Clavulanate 600-42.9 MG/5ML 10 ml Orally bid with food for 10 day(s) Patient requested liquid Augmentin due to the size of the tablets October, ActiveStart: 63-22-9547shzv 1 tablet by mouth twice daily at mealtimeAmoxicillin-Pot Clavulanate 875-125 MG 1 tablet Orally bid with food for 10 day(s) Jul, Not-Takingascorbic acid 60 mg / beta carotene 5000 unt / copper sulfate 40 mg / dl-alpha tocopheryl acetate 30 unt / sodium selenite 0.04 mg / zinc oxide 40 mg oral tablet (5 sources)Vitamin Ctake 1 tablet by mouth once dailyMultiple Vitamins-Iron (QC Daily Multivitamins/Iron) tablet Take 1 tablet by mouth daily. Activeaspirin 81 mg oral tablet (13 sources)Platelet Aggregation Inhibitor, Nonsteroidal Anti-inflammatory Drug Start: 00-13-1361brra 1 tablet by mouth once daily at mealtimeAspirin EC 81 MG 1 tablet Orally qd with food May, ActiveStart: 46-66-0267sodb 1 tablet by mouth once daily at mealtimeAspirin EC 81 MG 1 tablet Orally qd with food May, Not-Takingatenolol 25 mg oral tablet (20 sources)beta-Adrenergic BlockerStart: 76-23-5884liij 1 tablet by mouth in the morningatenoloL (TENORMIN) 25 mg tablet Take 1 tablet (25 mg total) by mouth in the morning. 01/19/2024 ActiveStart: 01-19-2024 End: 84-53-0883cspl 1 tablet by mouth once dailyAtenolol 25 mg tablet Discontinued 25 MG PO Daily January 19, 2024 11:38am March 23, 2024 12: 20pmStart: 10-20-2020 End: 38-16-0866rcqqhdmd (TENORMIN) 25 mg tabletBudesonide / formoterol (13 sources)Corticosteroid, beta2-Adrenergic AgonistSymbicort prn Active Symbicort Activecefdinir 300 mg oral capsule (1 source)Cephalosporin AntibacterialStart: 97-80-4357olgx 2 capsules by mouth once daily at mealtimeCefdinir 300 MG 2 capsules Orally qd with food for 10 days Sep, Activeclindamycin 300 mg oral capsule (6 sources)Lincosamide AntibacterialStart: 98-91-8507flpigvgcudn 300 MG capsule 02/13/2024 ActiveStart: 11-08-2023 End: 60-89-4033iuzy 1 capsule by mouth four times dailyclindamycin (CLEOCIN) 300 MG capsule Take 1 capsule by mouth 4 times daily for 10 days 40 capsule 0 11/08/2023 11/18/2023 Activecyclobenzaprine hydrochloride 10 mg oral tablet (1 source)Muscle RelaxantStart: 07-12-2024 End: 78-84-4841mkxu 1 tablet by mouth three times daily as needed for muscle spasmscyclobenzaprine (FLEXERIL) 10 MG tablet Take 1 tablet by mouth 3 times daily as needed for Muscle spasms 21 tablet 07/12/2024 07/22/2024 Active diflunisal 500 mg oral tablet (9 sources)Nonsteroidal Anti-inflammatory DrugStart: 34-04-3521hcpn 1 tablet by mouth every twelve hoursdiflunisal 500 mg Tab 500 mg = 1 tab(s), Oral, q12hr, # 20 tab(s), Refills(s) 0, Pharmacy: [facility]/pharmacy #[id number], 165, cm, 09/26/23 14:18:00 EDT, Height/Length Dosing, 81.2, kg, 09/26/23 14:18:00 EDT, Weight Dosing Start Date: 09/26/23 Status: Ordereddocusate sodium 50 mg / sennosides, halfway 8.6 mg oral tablet (6 sources)Start: 75-69-4248ovrh 1 tablet by mouth in the morningsennosides- docusate sodium (SENNA WITH DOCUSATE SODIUM) 8.6-50 mg Take 1 tablet by mouth in the morning and 1 tablet before bedtime. 60 tablet 04/06/2024 Activedoxycycline hyclate 100 mg oral capsule (18 sources)Tetracycline-class DrugStart: 16-87-5367fdyn 1 capsule by mouth every twelve hoursDoxycycline Hyclate 100 MG 1 capsule Orally Twice a day for 10 days Mar, ActiveStart: 06-20-2019 End: 66-57-0735nkpg 1 capsule by mouth twice dailyDoxycycline Monohydrate 100 mg Capsule Discontinued 100 MG PO Twice daily June 20, 2019 1:00am April 28, 2022 1:50am84 hr estradiol 0.87234 mg/hr / norethindrone acetate 0.16347 mg/hr transdermal system (6 sources)EstrogenStart: 95-02-3853uqldcwioz-norethindrone acet (COMBIPATCH) 0.05-0.14 mg/[address] 1 patch on the skin 2 (two) times a week. 24 patch 4 04/09/2024 Activeferrous sulfate (20 sources)Start: 99-44-4609cxff 1 tablet by mouth every other dayFerrous Sulfate 325 (65 Fe) MG 1 tablet Orally qod Jul, ActiveStart: 07-23-2020 take 1 tablet by mouth every twenty-four hoursFerrous Sulfate 325 (65 Fe) MG 1 tablet Orally Once a day Jul, Not-TakingStart: 29-56-0573rigb 1 tablet by mouth once dailyFerrous Sulfate 325 (65 Fe) MG 1 tablet Orally Once a day Jul, Not-TakingStart: 07-15-2018 End: 61-40-2439xuut 1 tablet by mouth twice dailyFerrous Sulfate 325 mg (65 mg iron) tablet Discontinued 325 MG PO Twice daily July 15, 2018 1:00am June 20, 2019 8:08pmfluconazole 150 mg oral tablet (5 sources)Azole AntifungalStart: 42-43-0600frjp 1 tablet by mouth once Fluconazole 150 MG tablet TAKE 1 TABLET BY MOUTH ONCE 01/30/2024 Active gabapentin 300 mg oral capsule (1 source)Anti-epileptic AgentStart: 06-10-2024 End: 34-74-1843lpjb 1 capsule by mouth three times dailygabapentin (NEURONTIN) 300 mg capsule Indications: Endometriosis Take 1 capsule (300 mg total) by mouth 3 (three) times a day for 10 days. 30 capsule 06/10/2024 06/20/2024 Active hyoscyamine sulfate 0.125 mg oral tablet (2 sources)Start: 09-26-2023 End: 41-63-3258vtml 1 tablet by mouth four times dailyLevsin 0.125 mg SL Tab 0.125 mg = 1 tab(s), Oral, QID, X 5 day(s), # 20 tab(s), Refills(s) 0, Pharmacy: [facility]/pharmacy #[id number], 165, cm, 09/26/23 14:18:00 EDT, Height/Length Dosing, 81.2, kg, 09/26/23 14:18:00 EDT, Weight Dosing Start Date: 09/26/23 Stop Date: 10/01/23 Status: Orderedibuprofen 800 mg oral tablet (20 sources)Nonsteroidal Anti-inflammatory DrugStart: 04-65-3616odkf 1 tablet by mouth every eight hoursibuprofen (MOTRIN) 800 mg tablet Take 1 tablet (800 mg total) by mouth every 8 (eight) hours. 60 tablet 04/06/2024 ActiveStart: 04-28-2022 End: 09-26-7629ofzl 1 tablet by mouth every six hours as needed for pain Ibuprofen 600 mg tablet Discontinued 600 MG PO Q6H as needed for pain April 28, 2022 1:00amOctober 2022 1:48amStart: 07-07-2018 End: 12-94-3044fvqc 1 tablet by mouth every six hoursibuprofen (MOTRIN) 600 mg tablet Take 1 tablet by mouth every 6 hours. 60 tablet 0 07/07/2018 03/10/2022 Discontinued (Discontinued by Patient)Comment on above:Take 1 tablet by mouth every 6 hours.ketorolac tromethamine 10 mg oral tablet (15 sources)Nonsteroidal Anti-inflammatory Drug, Cyclooxygenase Inhibitortake 1 tablet by mouth every six hours as needed for painketorolac (TORADOL) 10 mg tablet Take 1 tablet (10 mg total) by mouth every 6 (six) hours as neededfor pain. Activemupirocin 0.02 mg/mg topical ointment (1 source)RNA Synthetase Inhibitor AntibacterialStart: 12-04-2021 End: 27-85-1929acumhfzak Top 2% Oint 1 luis, Topical, TID for 10 day(s), 22 gm, Refill(s) 0, [facility]/pharmacy #[id number], 166, cm, 12/04/21 12:54:00 EDT, Height/Length Dosing, 84, kg, 12/04/21 12:54:00 EDT, Weight Dosing Start Date: 12/04/21 Stop Date: 12/14/21 Status: Orderednabumetone 750 mg oral tablet (5 sources)Nonsteroidal Anti-inflammatory DrugStart: 71-61-5253aimj 1 tablet by mouth every twelve hours as needed for painnabumetone 750 MG tablet take 1 tablet by mouth every 12 hours as needed for pain 05/08/2023 Activenaloxone hydrochloride 40 mg/ml nasal spray (5 sources)Opioid AntagonistStart: 02-16-2024 End: 60-40-8480xgqcjigy 4 MG/0.1ML 1 spray by Nasal route once for 1 dose. [place] into the nose as directed. Call 911. If no response in 2 minutes use a new nasal spray in other nostril. Repeat until help arrives. 1Each 02/16/2024 Active naloxone (NARCAN) 4 mg/actuation spray,non-aerosol nasal spray (6 sources)Start: 66-10-0253sjukgvjo (NARCAN) 4 mg/actuation spray,non-aerosol nasal spray Administer 1 spray (4 mg total) intoalternating nostrils as needed for opioid reversal. 2 each 04/06/2024 Activenorethindrone acetate 5 mg oral tablet (1 source)Start: 06-11-2024 End: 91-49-5584pzlb 1 tablet by mouth in the morningnorethindrone (AYGESTIN) 5 mg tablet Take 1 tablet (5 mg total) by mouth in the morning for 30 days. 30 tablet 06/11/2024 07/11/2024 Activeondansetron 4 mg disintegrating oral tablet (20 sources)Serotonin-3 Receptor AntagonistStart: 44-80-7502jfeh 1 tablet by mouth every eight hours as needed for nauseaondansetron ODT (ZOFRAN ODT) 4 mg disintegrating tablet Dissolve 1 tablet (4 mg total) on tongue every 8 (eight) hours as needed for nausea for up to 10 doses. 10 tablet 09/28/2024 ActiveStart: 02-24-2024 End: mg, Intravenous, ONCE, 1 dose, On Tue02/24/24 at 2100Start: 02-16-2024 End: mg, Intravenous, ONCE, 1 dose, On Obdulia 02/16/24 at 1430Start: 59-37-3383Ahcqizwxzzd 4 MG Tab Dispersible tablet Place 1 tablet under tongue. 01/22/2024 ActiveStart: 17-77-8454lsgf 1 tablet by mouth three times daily as needed for nauseaondansetron (ZOFRAN) 4 MG tablet Take 1 tablet by mouth 3 times daily as needed for Nausea or Vomiting 9 tablet 09/06/2023 ActiveStart: 26-68-2680eojk 4 mg by mouth every eight hoursOndansetron Hcl Active 4 MG PO Q8H 15 March 29, 2023 12:00amStart: 09-14-2021 End: 46-29-5510cvim 1 tablet by mouth three times daily as needed for nausea and vomitingOndansetron 4 mg tablet,disintegrating Discontinued 4 MG PO Three times daily as needed for nausea and vomiting 9 September 14, 2021 12:00am April 28, 2022 1:50amoxyCODONE hydrochloride 5 mg oral capsule (12 sources)Opioid AgonistStart: 04-24-2023 End: 32-07-6110sunZGCEVG 5 mg Cap 5 mg = 1 cap(s), Oral, q6hr, PRN Pain 8-10, X 3 day(s), # 12 cap(s), Refills(s) 0, Pharmacy: [facility]/pharmacy #[id number], 165.1, cm, 04/24/23 13:32:00 EST, Height/Length Dosing, 84, kg, 04/24/23 13:32:00 EST, Weight Dosing Start Date: 04/24/23 Stop Date: 04/27/23 Status: OrderedStart: 04-03-2023 End: 70-32-1174niwv 1 tablet by mouth every four hours as needed for pain Oxycodone 5 mg tablet Discontinued 5 MG PO Q4H as needed for severe pain (scale score 7-10) 18 April 03, 2023 April 30, 2023 6:33pmStart: 03-29-2023 take 5 mg by mouth every six hoursOxycodone Active 5 MG PO Q6H 12 March 29olyethylene glycol 3350 52667 mg powder for oral solution (2 sources)Osmotic LaxativeStart: 09-26-2023 End: 16-59-6464qlie 17 g by mouth once dailyMiralax 3350 17 gram packet 17 gm, Oral, Daily, X 7 day(s), # 119 gm, Refills(s) 0, Pharmacy: [facility]/pharmacy #[id number], 165, cm, 09/26/23 14:18:00 EDT, Height/Length Dosing, 81.2, kg, 09/26/23 14:18:00 EDT, Weight Dosing Start Date: 09/26/23 Stop Date: 10/03/23 Status: OrderedSymbicort 80/4.5 inhalation aerosol with adapter (12 sources)Start: 64-70-7343Olwqugaws 80/4.5 inhalation aerosol with adapter Refill(s) 0 Start Date: 12/04/21 Status: OrderedtraMADol hydrochloride 50 mg oral tablet (7 sources)Opioid AgonistStart: 01-22-2024 End: 99-49-3160qfbu 1 tablet by mouth every six hours as needed for paintraMADol 50 MG tablet TAKE 1 TABLET BY MOUTH EVERY 6 HOURS NEEDED FOR PAIN FOR UP TO 3 DAYS. TAKE LOWEST DOSE POSSIBLE 01/22/2024 ActiveStart: 01-22-2024 End: 09-55-5949llbk 1 dose by mouth once50 mg, Oral, ONCE, 1 dose, On 01/22/24 at 1230Vitamin C 500 MG (10 sources)Start: 05-41-7520myyl 1 tablet by mouth once dailyVitamin C 500 MG 1 tablet Orally Once a day Mar, ActiveWomens One Daily - (10 sources)Start: 58-63-5135Rtbhsx One Daily - as directed Orally Mar, Active Completed/Discontinued Medications MedicationDrug Class(es)DatesSig (Normalized)Sig (Original)[id number] 200 actuat albuterol 0.09 mg/actuat metered dose inhaler (17 sources)beta2-Adrenergic AgonistStart: 06-20-2019 End: 49-86-2229zgca 1 puff(s) by inhalation every four to six hours as needed Albuterol Sulfate 90 mcg/actuation Hfa Aerosol Inhaler Discontinued 2 PUFF INHALATION EVERY 4-6 HOURS as needed for shortness of breath June 20, 2019 1:00am April 28, 2022 1:51amALPRAZolam 0.25 mg oral tablet (20 sources)BenzodiazepineStart: 09-14-2023 End: 25-94-0470Ihxiscfubh 0.25 mg tablet Discontinued 0.25 MG PO EVERY 8-12 HOURS as needed for Anxiety May 30, 2024 10:19am September 03, 2024 2:18pm Start: 31-12-3522Vstsn 0.25 MG 1 tablet Orally q8-12 hrs prn anxiety for 8 days Jan, ActiveStart: 12-04-2021 End: 48-39-3069mcfi 1 tablet by mouth once daily as needed for anxietyAlprazolam (Xanax) 0.25 mg tablet Discontinued 0.25 MG PO Daily as needed for Anxiety April 28, 2022 1:00am March 29, 2023 1:48amStart: 12-04-2021 End: 91-88-3655bbqd 1 tablet by mouth three times daily as needed for anxiety Alprazolam 0.25 mg tablet Discontinued 0.25 MG PO Three times daily as needed for Anxiety March 29, 2023 12:00am September 14, 2023 2:59pmStart: 03-12-2019 Xanax 0.5 MG 1/2 tablet Orally q8-12 hrs prn anxiety Feb, ActiveStart: 18-65-7993Fknha 0.25 MG 1 tablet Orally q8-12 hrs prn anxiety for 8 days Feb, ActiveComment on above:TAKE 1 TABLET BY MOUTH EVERY 8 TO 12 HOURS NEEDED FOR ANXIETYazithromycin 250 mg oral tablet (17 sources)Macrolide AntimicrobialStart: 04-17-2021 End: 32-83-6574aelu 2-5 tablets by mouth once dailyAzithromycin 250 mg tablet Discontinued 0 PO .COMPLEX 6 April 17, 2021 12:00am April 28, 2022 1:50am take 500 mg today (day 1), then 250 mg for 4 days (days 2-5)benzonatate 100 mg oral capsule (5 sources)Non-narcotic AntitussiveStart: 46-96-8367isgo 2 capsules by mouth three times daily for coughTessalon Perles 100 MG 2 capsules Orally Three times a day for cough Aug, Not-Takingcitalopram 20 mg oral tablet (20 sources)Serotonin Reuptake InhibitorStart: 06-20-2019 End: 21-04-5207woil 1 tablet by mouth once dailyCitalopram 20 mg tablet Discontinued 20 MG PO Daily April 28, 2022 1:00am March 29, 2023 1:48am Comment on above:Take 20 mg by mouth once daily.codeine phosphate 2 mg/ml / guaiFENesin 20 mg/ml oral solution (17 sources)Opioid AgonistStart: 06-20-2019 End: 61-67-9651hxmn 1 mL by mouth every four to six hours as needed for cough Codeine-Guaifenesin 10-100 mg/5 mL Liquid Discontinued 10 ML PO EVERY 4-6 HOURS as needed for CoughJanuary 2019 1:00am April 28, 2022 1:50am dextromethorphan hydrobromide 30 mg / pyrilamine maleate 30 mg oral tablet (7 sources)Uncompetitive R-ekrkgb-K-aspartate Receptor Antagonist, Sigma-1 AgonistStart: 32-68-0720jgcq 1 tablet by mouth every six hours as neededCapron DMT 30-30 MG 1 tablet Orally q6 hrs prn Aug, Not-TakingdiazePAM 5 mg oral tablet (1 source)BenzodiazepineStart: 07-12-2024 End: 56-81-1053qxro 1 dose by mouth once5 mg, Oral, ONCE, 1 dose, On [place]dulia 07/12/24 [place] [address] ml diphenhydrAMINE hydrochloride 50 mg/ml cartridge (8 sources)Histamine-1 Receptor AntagonistStart: 07-14-2024 End: 16-74-546524 mg, Intravenous, ONCE, 1 dose, On 07/14/24 at 1900take 1 capsule by mouth every six hours as neededdiphenhydrAMINE (BENADRYL) 25 mg capsule Take 25 mg by mouth every 6 hours as needed. 0 ActiveComment on above: Take 25 mg by mouth every 6 hours as needed.2 ml fentaNYL 0.05 mg/ml injection (2 sources)Opioid AgonistStart: 06-27-2024 End: 21-63-1974hqki 1 dose by mouth every hour50 mcg, IntraVENous, ONCE, 1 dose, On Tue06/27/24 at 1500, If oral and IV narcotics ordered, use oral first and only use IV if oral is ineffective or cannot take oral. Do Not give oral and IV within 1 hour of each other unless specifically ordered.Start: 06-27-2024 End: 97-30-9806cyeh 1 dose by mouth every hour50 mcg, IntraVENous, ONCE, 1 dose, On Tue06/27/24 at 1400, If oral and IV narcotics ordered, use oral first and only use IV if oral is ineffective or cannot take oral. Do Not give oral and IV within 1 hour of each other unless specifically ordered.homatropine methylbromide 0.3 mg/ml / HYDROcodone bitartrate 1 mg/ml oral solution (20 sources)Opioid Agonist, Cholinergic Muscarinic AgonistStart: 07-28-2023 End: 74-13-2065Rufyxqjssbk-Homatropine (Hycodan) 5-1.5 mg/5 mL (5 mL) syrup Discontinued 5 ML PO Every 6 hours 1406July 28, 2023 September 07, 2023 1:57pmStart: 57-55-7213ZSNVVyqmsxf Bit-Homatrop MBr 5-1.5 MG/5ML 5 ml Orally every 6 hrs for 7 days May, ActiveStart: 17-06-1855QELGIuebcyp Bit- Homatrop MBr 5-1.5 MG/5ML 5 ml Orally every 6 hrs for 7 days Apr, Active Start: 70-33-9619IGCGHimogyh Bit-Homatrop MBr 5-1.5 MG/5ML 5 ml Orally every 6 hrs for 7 days Mar, ActiveStart: 38-01-2509AYTWCnzsmoc Bit-Homatrop MBr 5-1.5 MG/5ML 5 ml Orally every 6 hrs for 7 days Feb, ActiveStart: 46-22-0882OJRDBgtggia Bit-Homatrop MBr 5-1.5 MG/5ML 5 mL as needed Orally every 6 hrs for 7 days Nov,ctiveStart: 18-80-6239aoug 5 mL by mouth every six hours as neededHycodan Syrup 5mg/1.5 mg 5ml po q 6 hrs prn for 7 days Nov, ActiveStart: 85-62-4569LPKHEkgotzb Bit-Homatrop MBr 5-1.5 MG/5ML 5 mL as needed Orally every 6 hrs for 7 days Sep,ctiveStart: 91-62-4973vsxz 5 mL by mouth every six hours as neededHycodan Syrup 5mg/1.5 mg 5ml po q 6 hrs prn for 7 days Jan, ActiveStart: 57-00-3280vckp 5 mL by mouth every six hours as neededHycodan Syrup 5mg/1.5 mg 5ml po q 6 hrs prn for 7 days May, Not-TakingStart: 02-26-3471eyuk 5 mL by mouth every six hours as needed Hycodan Syrup 5mg/1.5 mg 5ml po q 6 hrs prn for 7 days May, Active Hydrocodone-Homatropine (Hycodan) 5-1.5 mg/5 mL (5 mL) syrup (14 sources)Start: 09-07-2023 End: 59-86-6683Slzumwvaiml-Homatropine (Hycodan) 5-1.5 mg/5 mL (5 mL) syrup Discontinued 5 ML PO Every 6 hours 1406September 07, 2023 September 07, 2023 2:42pm Start: 09-07-2023 End: 28-01-4802Sxwaopajdvy-Homatropine (Hycodan) 5-1.5 mg/5 mL (5 mL) syrup Discontinued 5 ML PO Every 6 hours 1406September 07, 2023 October 04, 2023 10:42amHYDROmorphone hydrochloride 2 mg oral tablet (19 sources)Opioid AgonistStart: 07-14-2024 End: mg, Intravenous, ONCE, 1 dose, On Tue07/14/24 at 1830Start: 02-24-2024 End: .5 mg, Intravenous, ONCE, 1 dose, On Tue02/24/24 at 2330Start: 02-16-2024 End: .5 mg, Intravenous, ONCE, 1 dose, On Tue02/16/24 at 1645Start: 02-16-2024 End: mg, Intravenous, ONCE, 1 dose, On Tue02/16/24 at 1430Start: 04-28-2022 End: 64-87-4977tbwr 1 tablet by mouth every four hours as needed for pain Hydromorphone (Dilaudid) 2 mg tablet Discontinued 2 MG PO Q4H as needed for pain 7 April 28, 2022 March 29, 2023 1:48amiohexol (OMNIPAQUE) 350 MG/ML injection 75 mL (1 source)Start: 02-16-2024 End: mL, Intravenous, ONCE, 1 dose, On Obdulia 02/16/24 at 1615, Extravasation Risk, Radiology Procedure2 ml metoclopramide 5 mg/ml prefilled syringe (1 source)Dopamine-2 Receptor AntagonistStart: 07-14-2024 End: 97-72-442508 mg, Intravenous, ONCE, 1 dose, On 07/14/24 at 1830 Multivitamins-Iron tab (7 sources)take 1 tablet by mouth once dailyMultivitamins-Iron tab Take 1 tablet by mouth once daily. 0 ActiveComment on above:Take 1 tablet by mouth once daily. 1 ml nalbuphine hydrochloride 10 mg/ml injection (1 source)Opioid Agonist/AntagonistStart: 07-29-2024 End: 62-85-6772eedddk 1 dose by intramuscular injection once5 mg, IntraMUSCular, Once, 1 dose, On 07/29/24 at 1930naproxen 500 mg oral tablet (13 sources)Nonsteroidal Anti-inflammatory DrugStart: 03-29-2023 End: 47-04-4434lddw 1 tablet by mouth twice daily as needed for painNaproxen 500 mg tablet Discontinued 500 MG PO Twice daily as needed for pain March 29, 2023 12:00am April 30, 2023 6:33pmpotassium chloride 20 meq extended release oral tablet (16 sources)Start: 09-14-2021 End: 26-05-3151coqz 1 tablet by mouth once dailyPotassium Chloride 20 mEq tablet extended release Discontinued 20 MEQ PO Daily September 14, 2021 12:00am April 28, 2022 1:50ampredniSONE 20 mg oral tablet (20 sources)Start: 74-01-1680ijlfetVICL 20 MG take 3 tablets Orally x3 days, then 2 tabs x3 days then 1 tab a day x3 days with food or milk for 9 days Aug, Not-TakingStart: 04-17-2021 End: 76-79-1315dheg 1 tablet by mouth once daily at mealtimePrednisone 50 mg tablet Discontinued 50 MG PO Daily 5 April 17, 2021 12:00am April 28, 2022 1:50am administer with food or milkStart: 06-20-2019 End: 50-63-3129baci 2 tablets by mouth once dailyPrednisone 20 mg tablet Discontinued 40 MG PO Daily 03 17June 20, 2019 1:00am April 28, 2022 1:50amStart: 06-20-2019 End: 42-72-7963pszh 40 mg by mouth once dailyPrednisone Discontinued 40 MG PO Daily 03 17June 20, 2019 1:00am April 28, 2022 1:50amprochlorperazine 5 mg oral tablet (12 sources)PhenothiazineStart: 03-29-2023 End: 49-10-8789krzs 1 tablet by mouth every eight hours as needed for nausea and vomitingProchlorperazine Maleate 5 mg tablet Discontinued 5 MG PO Q8H as needed for nausea and vomiting 30 12March 29, 2023 12:00am April 30, 2023 6:33pmsemaglutide 0.3 mg (1 source)Start: 03-23-2024 End: 14-38-0433jgptrg 0.3 mg by subcutaneous injection every weeksemaglutide 0.3 mg Discontinued 0.25 ML SUBCUT .once weekly March 23, 2024 12:00am September 03, 2024 1:91ax552 ml sodium chloride 9 mg/ml injection (2 sources)Start: 02-16-2024 End: mL, Intravenous, ONCE, 1 dose, On Obdulia 02/16/24 at 1615, Radiology Procedure Problems Active Problems Problem ClassificationProblemDateDocumented DateEpisodic/ChronicAbdominal pain (20 sources)Pain in pelvis; Translations: [Pelvic and perineal pain]Onset: 165308-99-9594JphixgtaUmbuzaoprdfnga/social admission (1 source)Other problems related to medical facilities and other health care; Translations: [Other problems related to medical facilities and other health care]Onset: 87-94-8659GolbpaxjXitqwbd disorders (20 sources)Anxiety; Translations: [Anxiety disorder, unspecified]Onset: 04-21-2021 Resolved: 85-20-3916RytmmwuOsmboxysgqakw of surgical procedures or medical care (4 sources)Ovarian remnant syndrome; 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] Onset: 007883-85-9535EeskisdqOvljahsuae and other anemia (12 sources)Iron deficiency anemia due to blood loss; Translations: [Iron deficiency anemia secondary to blood loss (chronic)]Onset: 56-74-1180Fbxzntm Deficiency and other anemia (1 source)Iron deficiency anemia secondary to blood loss (chronic); Translations: [Iron deficiency anemia dueto chronic blood loss]Onset: 10-27-2020 ChronicDeficiency and other anemia (20 sources)Iron deficiency anemia; Translations: [Iron deficiency anemia, unspecified]EpisodicDeficiency and other anemia (5 sources)Iron deficiency anemia, unspecifiedOnset: 04-21-2021 Resolved: 85-13-7568AghgduuiPmvhbckzj of lipid metabolism (20 sources)Hyperlipidemia; Translations: [Hyperlipidemia, unspecified]Onset: 04-21-2021 Resolved: 16-55-7429AryhrysBlzabmpfm of teeth and jaw (10 sources)Toothache; Translations: [Other specified disorders of teeth and supporting structures]Onset: 924825-60-2330JbhigxwuNrujpgugvcphm (20 sources)Endometriosis (clinical); Translations: [Endometriosis, unspecified] Onset: 399476-46-4670UgxriadVbtuwejumiyef (2 sources)Endometriosis; Translations: [Deep endometriosis of ovary, unspecified ovary]Onset: 78-96-8269Vmhds of unknown origin (11 sources)Fever, unspecified; Translations: [Fever]EpisodicInflammatory diseases of female pelvic organs (7 sources)Hydrosalpinx; Translations: [Chronic salpingitis]Onset: 05-30-2018 94-73-4068FlruapiXknwzo and vomiting (2 sources)Nausea with vomiting, unspecified; Translations: [Nausea]Onset: 05-18-2021 Resolved: 67-69-8855EpyqgfutXehsaruig of unspecified nature or uncertain behavior (1 source)Thrombocytosis; Translations: [Thrombocytosis]Onset: 01-84-1652Qgqhoed Other connective tissue disease (1 source)Trochanteric bursitis, right hipEpisodicOther gastrointestinal disorders (10 sources)Malabsorption - iron; Translations: [Intestinal malabsorption, unspecified]Onset: 921892-51-0428FfxskhpIsnbk gastrointestinal disorders (1 source)Intestinal malabsorption, unspecified; Translations: [Malabsorption of iron]Onset: 33-04-9511ZkjnfhxCxacj gastrointestinal disorders (1 source)Constipation, unspecified; Translations: [Constipation, unspecified] Onset: 76-46-9956FrxwjkhgWzdnk gastrointestinal disorders (1 source)Mass of abdominal cavity structure; Translations: [Intra-abdominal and pelvic swelling, mass and lump, unspecified site]Onset: 71-11-5260GcuxkcswYunbp hematologic conditions (1 source)Other abnormality of red blood cells; Translations: [Microcytosis] Onset: 04-30-9631KidxoojaMsmnb lower respiratory disease (17 sources)Dyspnea; Translations: [Dyspnea, unspecified]98-69-0071FoeorenwMlczg lower respiratory disease (19 sources)Cough; Translations: [Acute cough]02-86-3809WszyyrimRdqoe lower respiratory disease (3 sources)Cough; Translations: [Acute cough]70-05-6262GjkjzwhvLypzx nervous system disorders (4 sources)Other chronic pain; Translations: [Other chronic pain]Onset: 80-96-0652AhyvmydGsziu nervous system disorders (1 source)Patient encounter status; Translations: [Other chronic pain]08-01-2024 ChronicOther nervous system disorders (3 sources)Chronic pain; Translations: [Other chronic pain]Onset: 08-05-2024 ChronicOther nervous system disorders (20 sources)Paresthesia of upper limb; Translations: [Paresthesia of skin] EpisodicOther non-traumatic joint disorders (1 source)Arthralgia of the pelvic region and thigh; Translations: [Pain in right hip]13-44-0613KwhmvvawZapvh nutritional; endocrine; and metabolic disorders (1 source)Obese class I; Translations: [Body mass index (BMI) 30.0-30.9, adult] Onset: 82-11-2151KjaoerdAxqor nutritional; endocrine; and metabolic disorders (2 sources)Abnormal weight gain; Translations: [Abnormal weight gain]Onset: 04-21-2021 Resolved: 34-72-4236RfpmirriTcoqj nutritional; endocrine; and metabolic disorders (2 sources)Weight increased; Translations: [Abnormal weight gain]03-23-2024 EpisodicOther screening for suspected conditions (not mental disorders or infectious disease) (11 sources)Other specified abnormal findings of blood chemistry; Translations: [No current problems or disability]Onset: 118270-75-0274YwlappujPipmo upper respiratory infections (12 sources)Sinusitis; Translations: [Chronic sinusitis, unspecified]Onset: 370852-41-4436WthqkjoCiwmr upper respiratory infections (17 sources)Acute sinusitis, unspecified; Translations: [Acute sinusitis]Onset: 10-16-2021 Resolved: 09-86-3218TeusuwkuRwuzaerj codes; unclassified (2 sources)Insomnia; Translations: [Insomnia, unspecified]26-53-4824Yobunqok Residual codes; unclassified (1 source)Insomnia, unspecified; Translations: [Insomnia, unspecified]03-23-2024 EpisodicResidual codes; unclassified (1 source)Procedure and treatment not carried out because of patient's decision for other reasons; Translations: [Procedure and treatment not carried out because of patient's decision for other reasons]Onset: 30-99-2318FnonlxwiNbql and subcutaneous tissue infections (1 source)Impetigo; Translations: [Impetigo, unspecified]Onset: 12-04-2021 EpisodicUnclassified (1 source)Cough, unspecified; Translations: [Cough, unspecified]Onset: 11-25-2023 Past or Other Problems Problem ClassificationProblemDateDocumented DateEpisodic/ChronicCardiac dysrhythmias (20 sources)Tachycardia; Translations: [Tachycardia, unspecified]Onset: 04-21-2021 Resolved: 268888-56-8700FixxgbuwEyyzz and electrolyte disorders (18 sources)Hypokalemia; Translations: [Hypokalemia]Onset: EpisodicOther liver diseases (1 source)Abnormal levels of other serum enzymesOnset: 02-16-2022 Resolved: 42-80-9586XhytkzchLmhzv lower respiratory disease (1 source)CoughOnset: 08-11-2021 Resolved: 09-65-9078AvudtaixVoeya non-traumatic joint disorders (2 sources)Pain in right hip; Translations: [Pain in right hip]Onset: 03-03-2024 EpisodicOvarian cyst (20 sources)Cyst of ovary; Translations: [Unspecified ovarian cyst, unspecified side]Onset: 307000-63-2111YobswlqmZzrfpfhkkgsl (8 sources)Cough R05.9Onset: 05-18-2021 Resolved: 69-82-9896Zynwa infection (1 source)COVID-19Onset: 05-18-2021 Resolved: 05-18-2021 Results Test NameValueInterpretationReference RangeFacilityCT Abdomen/Pelvis w/o Contraston [id number] Abdomen/Pelvis w/o ContrastExam Date/Time: 04/08/2025 23:48 EDT Reason for Exam: RLQ Pain;Pain Report IMPRESSION: POSTSURGICAL CHANGES. NO EVIDENCE OF OBSTRUCTIVE UROPATHY. NO EVIDENCE OF ACUTE ABDOMINAL OR PELVIC PATHOLOGY. CLINICAL HISTORY: Pain, RLQ Pain. COMPARISON: 08/02/2024. COMMENT: Unenhanced images were obtained. There are [...] free air, nor free fluid is noted. The patient has had prior hysterectomy. What [...] Ordering Provider: Jignesh Dumont FINAL REPORT Dictated: 04/09/2025 9:14 am Danny Mcclain M.D. Signed (Electronic Signature): 04/09/2025 9:14 am Signed by: aDnny Mcclain M.D. Transcribed by: MILLIE Technologist: Irina Aquasco [facility] Clinical Summaryon [id number] Clinical SummaryED Clinical Summary [place] [id number] ED Clinical Summary Person Information Name: [facility] Age: 40 Years : 1985 Sex: Female Language: Senegalese PCP: NONE, XXXX Marital Status: Visit Id: Visit Reason: Nausea; Abdominal pain; ABDOMINAL PAIN Speciality: Acuity: 3 Enc Type: Emergency Med Service: Emergency Arrival: 04/08/2025 21:42:22 Discharge: 04/09/2025 00:58:37 LOS: 000 03:16 Checkin: 04/08/2025 21:42:22 Checkout: 04/09/2025 00:58:37 Dispo Type: Home (Routine DC) EVENTS: Event Name Event Status Request Date/Time Start Date/Time Complete Date/Time Arrive Complete 04/08/2025 21:42:22 04/08/2025 21:42:22 04/08/2025 21:42:22 Document Home Meds Request 04/08/2025 21:42:22 Triage Complete 04/08/2025 21:42:22 04/08/2025 21:52:27 04/08/2025 21:52:27 Registration Complete 04/08/2025 21:44:06 04/08/2025 21:44:06 04/08/2025 21:44:06 Reg Complete Request 04/08/2025 21:44:06 Reg Bed Request Complete 04/08/2025 21:44:06 04/08/2025 21:44:06 04/08/2025 21:44:06 Bed Assign Complete 04/08/2025 21:52:38 04/08/2025 21:52:38 04/08/2025 21:52:38 Dr Exam Complete 04/08/2025 21:52:38 04/08/2025 22:09:51 04/08/2025 22:09:51 RN Exam Complete 04/08/2025 21:52:38 04/08/2025 22:07:10 04/08/2025 22:07:10 Registration Request 04/08/2025 22:09:51 Pending Labs Complete 04/08/2025 23:07:17 04/08/2025 23:55:40 Lab Complete 04/08/2025 23:07:17 04/08/2025 23:53:21 Urine Collect Complete 04/08/2025 23:07:17 04/08/2025 23:23:18 Meds Admin Cancel 04/08/2025 23:07:17 04/08/2025 23:07:58 Patient Care Request 04/08/2025 23:07:17 Meds Admin Complete 04/08/2025 23:07:58 04/08/2025 23:15:27 CT Complete 04/08/2025 23:08:17 04/08/2025 23:16:33 04/08/2025 23:48:38 Pending Labs Complete 04/08/2025 23:23:18 04/08/2025 23:23:18 04/08/2025 23:35:01 Lab Complete 04/08/2025 23:23:18 04/08/2025 23:23:18 04/08/2025 23:35:01 Urine Collect Complete 04/08/2025 23:23:18 04/08/2025 23:23:18 04/08/2025 23:35:01 Pending Labs Complete 04/08/2025 23:31:44 04/08/2025 23:31:44 04/08/2025 23:53:21 Lab Complete 04/08/2025 23:31:44 04/08/2025 23:31:44 04/08/2025 23:53:21 Meds Admin Complete 04/09/2025 00:47:52 04/09/2025 00:55:29 Discharge Complete 04/09/2025 00:49:26 04/09/2025 00:58:40 04/09/2025 00:58:40 Transfer Complete 04/09/2025 00:58:40 04/09/2025 00:58:40 04/09/2025 00:58:40 ADDRESS: [address] [place] [id number] PHYS DOC NOTES: MEDICAL INFORMATION: Prescriptions Given: Medications to Continue with No Changes Other Medications alprazolam (alprazolam 0.25 mg Tab) budesonide-formoterol (Symbicort 80/4.5 inhalation aerosol with adapter) citalopram (citalopram 20 mg Tab) By Mouth every day. diflunisal (diflunisal 500 mg Tab) 1 Tablets By Mouth every 12 hours. Refills: 0. PATIENT EDUCATION INFORMATION: Instructions: Abdominal Pain, Adult Follow up: With: Address: When: Your VIDEO SYSTEM REPAIRER in [place] In 3 days 04/12/2025 Comments: Call the office of your primary [...] you develop any new or worsening symptoms. DIAGNOSIS: Chronic abdominal pain; Other chronic painNormalFisher Chris Medical CenterED Note-Physicianon [id number] Note-PhysicianED Note-Physician Basic Information Time Seen: Jignesh Dumont DO 04/08/2025 22:09 Chief Complaint Pt arrives to ED from home with c/o recurrent right sided abdominal pain. Was seen here a few days ago, pain meds at home not helping. Has frequent ovarian cysts, h/o endometriosis. History of Present Illness 40-year-old female to the emergency department chief complaint of acute on chronic right sided abdominal pain. She denies any nausea or vomiting. She has a history of endometriosis ovarian cysts and a endometrioma. She reports pain today is more severe than typical. Would like workup. Review of Systems A 10 point review of systems is negative except as noted above. Medical and Surgical History: Reviewed and noted Social history: Lives at home Tobacco: Denies Physical Exam Vitals & Measurements T: 36.4 ???C(Oral) HR: 114(Peripheral) RR: 20 BP: 162/101 SpO2: 100% HT: 165 cm WT: 100.0 kg BMI: 36.73 VITALS: I have reviewed the triage vital signs. GENERAL: Well developed, well appearing adult female in no acute distress. NEURO: Alert and [...] muscle use. GI/: Abdomen is soft. Mild right sided tenderness. Normoactive bowel sounds. EXTREMITIES: Symmetric muscle bulk. No joint swelling. No clubbing, cyanosis, or deformity. SKIN: Warm and dry. Normal turgor. No rash or lesions appreciated. PSYCH: Mood, affect, and interaction is appropriate to the setting. Medical Decision Making 40-year-old female well-known to this department for chronic abdominal pain presents to the emergency department chief complaint of right-sided abdominal pain. Vital stable, the patient is afebrile. Will obtain labs and imaging. Pain and nausea medicine was ordered. CBC and chemistry are unremarkable. Urinalysis without evidence of infection. test is negative. CT scan without any acute findings. Reassurance was given to the patient. She will continue her home pain regimen. No indication for prescription of controlled substances today. Patient was discharged home. Assessment/Plan Chronic abdominal pain (R10.9: Unspecified abdominal pain) Other chronic pain (G89.29: Other chronic pain) Orders: HYDROmorphone, 0.5 mg [...] medications Follow-up With When Contact Information Your VIDEO SYSTEM REPAIRER in [place] In 3 days 04/12/2025 EDT Additional Instructions: [...] effects and drug interactions with your pharmacist. Call [...] Symbicort 80/4.5 inhalation aerosol with adapter Allergies (more content not included)...[facility]carawas HospitalComment on above: Result Comment: Electronically Signed By: Jignesh Dumont DO\.br\Date and Time Signed: 04/09/25 02:57 EDTED Patient Summaryon [id number] Patient SummaryED Patient Summary [place] [id number] Patient Discharge Instructions Person Information Name: ANTONIA NOYOLA Age: 40 Years Arrival Date: 04/08/2025 21:42:22 Discharge Diagnosis: Chronic abdominal pain; Other chronic pain Primary Care Physician: NONE, XXXX Provider Information Primary Provider: Jignesh Dumont DO Advanced Judo Instructor:Shazia The exam and treatment you received in the Emergency Department were for an urgent problem and are not intended as complete care. It is important that you follow up with a doctor, nurse practitioner,or physician???s program assistant for ongoing care. If your symptoms become worse or you do not improve asexpected and you are unable to reach your usual health care provider, you should return to the Emergency Department. We are available 24 hours a day. ANTONIA NOYOLA has been given the following list of patient education materials, prescriptions and follow-up instructions: Follow-up Instructions: With: Address: When: Your VIDEO SYSTEM REPAIRER in [place] In 3 days 04/12/2025 Comments: Call the office of your primary [...] you develop any new or worsening symptoms. In the event that this physician does not participate in your insurance network, please consult with your insurance company to find a nearby participating provider. Patient Education Materials: Abdominal Pain, Adult A MESSAGE TO ALL PATIENTS REGARDING OPIOIDS PRESCRIPTION OPIOIDS: WHAT YOU NEED TO KNOW Prescription opioids can be used to help relieve iivsdocc-kb-equjur pain and are often prescribed following a [...] ??? Store prescription opioids in a secure jalil (more content not included)... NormalSheltering Arms HospitalB hCG Qualon 17-93-1223Pgue hCG QlNegative [facility]awas HospitalComment on above:Performed By: #### [id number] #### [facility] [address], [place] [address]VQPpq 87-90-5237Ozfbz gap [Moles/Vol]15 mmol/LNormal6-16S[facility] HospitalComment on above:Performed By: #### [id number] #### [facility] [address], [place] [address]FWT/Creat Ratio10 No XuhqxAvftjr47-81DaqleqSheltering Arms HospitalComment on above:Performed By: #### [id number] #### [facility] [address], [place] [address]Thmoqzw [Mass/Vol]9.5 mg/dLNormal8.9-11.1FWVUMedicine Barnesville HospitalComment on above:Performed By: #### [id number] #### [facility] [address], [place] [address]Ttintcyy [Moles/Vol]105 mmol/DJqfnal369-052WoixrcSheltering Arms HospitalComment on above:Performed By: #### [id number] #### [facility] [address], [place] [address]XE9 [Moles/Vol]20 mmol/MFur39-70KlsrzqSheltering Arms Hospital Comment on above:Performed By: #### [id number] #### [facility] [address], [place] [address]Oejzoizeww [Mass/Vol]0.7 mg/dLNormal0.5-1.3FWVUMedicine Barnesville HospitalComment on above:Performed By: #### [id number] #### [facility] [address] [place] [address]Aydakwc [Mass/Vol]106 mg/vHRorzuu18-572TivtxrSheltering Arms HospitalComment on above:Performed By: #### [id number] #### [facility] [address] [place] [address]Trlmuxvpo [Moles/Vol]3.4 mmol/LLow3.5-5.3FWVUMedicine Barnesville HospitalComment on above:Performed By: #### [id number] #### [facility] [address] [place] [address]Atncjr [Moles/Vol]137 mmol/DBbzzzz548-954YbwgkbSheltering Arms HospitalComment on above:Performed By: #### [id number] #### [facility] [address] [place] [address] 34[address]Bpej nitrogen [Mass/Vol]7 mg/dLNormal5-21S[facility] HospitalComment on above:Performed By: #### [id number] #### [facility] [address] [place] [address]WST w/ Auto Diffon 79-41-5514Zyzmjzsy Absolute0.1 E9/LNormal 0.0-0.2FWVUMedicine Barnesville HospitalComment on above:Performed By: #### [id number] #### [facility] [address] [place] [address]Qhinqirew/100 WBC (Bld)0.8 %Normal0.0-2.0S[facility] HospitalComment on above:Performed By: #### [id number] #### [facility] [address] [place] [address] 90[address]Tek Absolute0.0 E9/LNormal0.0-0.5FWVUMedicine Barnesville Hospital Comment on above:Performed By: #### [id number] #### [facility] [address] [place] [address] 86137Hcrefadttxf/100 WBC (Bld)0.1 %Normal0.0-8.0S[facility] Arms HospitalComment on above:Performed By: #### [id number] #### [facility] [address], [place] [address]Uzgibfaoxid distribution width (RBC) [Ratio]21.2 %High10.9-14.2 [facility] HospitalComment on above:Performed By: #### [id number] #### [facility] [address], [place] [address]Izbxylxfnm (Bld) [Volume fraction]35.9 %Ibgdfk63.0-46.0[facility] HospitalComment on above:Performed By: #### [id number] #### [facility] [address], [place] [address]Bbemvlhqlq (Bld) [Mass/Vol]12.0 g/fUVnonza81.0-16.0[facility] HospitalComment on above:Performed By: #### [id number] #### [facility] [address] [place] [address]Knylw Absolute3.2 E9/LNormal1.0-4.0[facility] Comment on above:Performed By: #### [id number] #### [facility] [address] [place] [address]Gmmxrihkssw/100 WBC (Bld)35.7 %Lmrkxz17.0-50.0[facility] HospitalComment on above:Performed By: #### [id number] #### [facility] [address], [place] [address]GYX (RBC) [Entitic mass]25.9 pgLow27.0-34.0[facility] HospitalComment on above:Performed By: #### [id number] #### [facility] [address], [place] [address]OZPA (RBC) [Mass/Vol]33.6 g/rHMufdox52.4-36.0[facility] HospitalComment on above:Performed By: #### [id number] #### [facility] [address], [place] [address]KGW (RBC) [Entitic vol]77.1 fLLow80.0-100.0[facility] HospitalComment on above:Performed By: #### [id number] #### [facility] [address], [place] [address]Ntzz Absolute0.5 E9/LNormal0.2-1.0[facility] Comment on above:Performed By: #### [id number] #### [facility] [address], [place] [address]Nudczvhoo/100 WBC (Bld)5.4 %Normal4.0-14.0[facility] HospitalComment on above:Performed By: #### [id number] #### [facility] [address] [place] [address]Fzreem Absolute5.1 E9/LNormal2.0-7.5FWVUMedicine [facility] Comment on above:Performed By: #### [id number] #### [facility] [address] [place] [address]Mjytzs Auto58.0 %Jsyssz25.0-75.0[facility] Comment on above:Performed By: #### [id number] #### [facility] [address] [place] [address]Ozvvgscg120.0 E9/QKovste579.0-500.0[facility] Comment on above:Performed By: #### [id number] #### [facility] [address], [place] [address]Xyzzlxub mean volume (Bld) [Entitic vol]7.5 fLNormal6.4-10.8 [facility] HospitalComment on above:Performed By: #### [id number] #### [facility] [address], [place] [address]OHO1.7 E12/LNormal4.3-5.9[facility] HospitalComment on above:Performed By: #### [id number] #### [facility] [address] [place] [address]LFY4.9 E9/LNormal4.0-11.0[facility] HospitalComment on above:Performed By: #### [id number] #### [facility] [address], [place] [address]KM with Cult Rflxon 40-19-6787Wrgaq (U)ColorlessAbnormalYellow [facility] HospitalComment on above:Order Comment: Added by Discern ExpertResult Comment: Microscopic readings are only performed on those samples that meet specific criteria set forth by [facility]. Performed By: #### [id number] #### [facility] [address], [place] [address]Ktomxbj (U) [Mass/Vol]NegativeNormalNegativeSheltering Arms HospitalComment on above:Order Comment: Added by Lis ExpertPerformed By: #### [id number] #### [facility] [address], [place] [address]Mzqizkq Ql (U)NegativeNormalNegRegency Hospital [facility] Comment on above:Order Comment: Added by Lis ExpertPerformed By: #### [id number] #### [facility] [address], [place] [address]JS BloodNegativeNormalNegRegency Hospital [facility] Comment on above:Order Comment: Added by Lis ExpertPerformed By: #### [id number] #### [facility] [address], [place] [address]AK ClarityClearNormalClearSheltering Arms HospitalComment on above:Order Comment: Added by Lis ExpertPerformed By: #### [id number] #### [facility] [address], [place] [address]OG Leuk EstNegativeNormalNegRegency Hospital [facility] Comment on above:Order Comment: Added by Lis ExpertPerformed By: #### [id number] #### [facility] [address], [place] [address]NF NitriteNegativeNormalNegRegency Hospital [facility] Comment on above:Order Comment: Added by Lis ExpertPerformed By: #### [id number] #### [facility] [address], [place] [address]VR pH7.5Invalid Interpretation Code5.0-9.0[facility] HospitalComment on above:Order Comment: Added by Discern ExpertPerformed By: #### [id number] #### [facility] [address], [place] [address]KY ProteinNegativeNormalNegativeSheltering Arms Hospital Comment on above:Order Comment: Added by Discern ExpertPerformed By: #### [id number] #### [facility] [address], [place] [address]AH Spec Grav1.009Invalid Interpretation Code1.005-1.030[facility] HospitalComment on above:Order Comment: Added by Discern Expert Performed By: #### [id number] #### [facility] [address] [place] [address]MX UrobilinogenNegativeNormalNegativeSheltering Arms HospitalComment on above:Order Comment: Added by Lis ExpertPerformed By: #### [id number] #### [facility] [address] [place] [address]Rkmiaachwtch (U) [Mass/Vol]NegativeNormalNegativeSheltering Arms HospitalComment on above:Order Comment: Added by Discern ExpertPerformed By: #### [id number] #### [facility] [address], [place] [address]IA with Cult Rflx SPon 06-14-9185JJ Spec DescClean CatchNormal [facility] HospitalComment on above:Performed By: #### [id number] #### [facility] [address], [place] [address]zFIVrz 98-30-9144oFVP791 mL/min/1.73 m9Qwenyt>=59S[facility] HospitalComment on above:Performed By: #### [id number] #### [facility] [address], [place] [address]MZ Clinical Summaryon [id number] Clinical SummaryED Clinical Summary [address] [address] ED Clinical Summary Person Information Name: ANTONIA NOYOLA/Michelle Age: 40 Years : 1985 Sex: Female Language: Senegalese PCP: NONE, XXXX Marital Status: Visit Id: Visit Reason: Nausea; Abdominal pain; abd pain Speciality: Acuity: 3 Enc Type: Emergency Med Service: Emergency Arrival: 04/06/2025 02:58:07 Discharge: 04/06/2025 03:42:03 LOS: 000 00:44 Checkin: 04/06/2025 02:58:07 Checkout: 04/06/2025 03:42:03 Dispo Type: Home (Routine DC) EVENTS: Event Name Event Status Request Date/Time Start Date/Time Complete Date/Time Arrive Complete 04/06/2025 02:58:07 04/06/2025 02:58:07 04/06/2025 02:58:07 Document Home Meds Request 04/06/2025 02:58:07 Triage Complete 04/06/2025 02:58:07 04/06/2025 03:06:54 04/06/2025 03:06:54 Dr Exam Complete 04/06/2025 02:58:55 04/06/2025 02:58:55 04/06/2025 02:58:55 Registration Complete 04/06/2025 02:58:55 04/06/2025 03:00:30 04/06/2025 03:00:40 Bed Assign Complete 04/06/2025 03:00:30 04/06/2025 03:00:30 04/06/2025 03:00:30 RN Exam Complete 04/06/2025 03:00:30 04/06/2025 03:10:09 04/06/2025 03:10:09 Reg Complete Request 04/06/2025 03:00:40 Reg Bed Request Complete 04/06/2025 03:00:40 04/06/2025 03:00:40 04/06/2025 03:00:40 Pending Labs Complete 04/06/2025 03:08:21 04/06/2025 03:11:24 Lab Complete 04/06/2025 03:08:21 04/06/2025 03:11:24 Urine Collect Complete 04/06/2025 03:08:21 04/06/2025 03:11:24 Pending Labs Complete 04/06/2025 03:18:57 04/06/2025 03:18:57 04/06/2025 03:27:36 Lab Complete 04/06/2025 03:18:57 04/06/2025 03:18:57 04/06/2025 03:27:36 Urine Collect Complete 04/06/2025 03:18:57 04/06/2025 03:18:57 04/06/2025 03:27:36 Meds Admin Complete 04/06/2025 03:31:43 04/06/2025 03:42:53 Discharge Complete 04/06/2025 03:31:46 04/06/2025 03:44:12 04/06/2025 03:44:12 Transfer Complete 04/06/2025 03:44:12 04/06/2025 03:44:12 04/06/2025 03:44:12 ADDRESS: [address] [place] [id number] [facility] DOC NOTES: MEDICAL INFORMATION: Prescriptions Given: Medications to Continue with No Changes Other Medications alprazolam (alprazolam 0.25 mg Tab) budesonide-formoterol (Symbicort 80/4.5 inhalation aerosol with adapter) citalopram (citalopram 20 mg Tab) By Mouth every day. diflunisal (diflunisal 500 mg Tab) 1 Tablets By Mouth every 12 hours. Refills: 0. PATIENT EDUCATION INFORMATION: Instructions: Follow up: With: Address: When: Your [employer]ODUCT [employer]ELOPMENT [employer] physician In 3 days 04/09/2025 With: Address: When: XXXX NONE , [place] In 3 days DIAGNOSIS: Chronic abdominal pain; Other chronic painNormalFisher Aquasco Medical CenterED Note-Physicianon [id number] Note-PhysicianED Note-Physician Basic Information Time Seen: Konstantin Penny DO 04/06/2025 02:58 Chief Complaint complains of right lower abd pain tonight. nausea. taking tylenol 3 without relief History of Present Illness 40 female presents emergency department with chronic abdominal pain. Patient states that she has longstanding history of this right lower quadrant abdominal pain. She tells me she has been worked up for this numerous times in the past and does have history of endometriosis and endometrioma. She didhave an appointment to see her PRODUCT DEVELOPMENT CARPENTER physician back in July when she had this diagnosis but she states the appointment was canceled and it was rescheduled for next week. She has had no nausea vomiting no diarrhea or constipation reports no urinary symptoms. She denies any chance of stating hysterectomy and has had cholecystectomy as well. Patient feels that this is a flareup of her chronic abdominal pain she did try some Toradol and Tylenol 3 at home without relief of symptoms. No other aggravating or relieving factors no other associated symptoms no other prior treatments or complaints. Family: Reviewed and noncontributory Social: lives at home Review of systems negative unless otherwise specified in the HPI. Physical Exam Vitals & Measurements T: 36.4 ???C(Oral) HR: 114(Peripheral) RR: 20 BP: 116/78 SpO2: 99% HT: 165 cm WT: 100.1 kg BMI: 36.77 General: The patient appears well and in [...] normal ROM, no deformity, no swelling GI: Soft no obvious distention. No rebound or rigidity. No guarding. Generalized right-sided tenderness palpation no focal tenderness no guarding rebounding or rigidity Neurological: A&O moves all extremities equal strength and symmetry. Cranial nerves grossly intact as tested Psychiatric: Cooperative and appropriate Medical Decision Making I did offer the patient a workup here she declined stating she is confident this is simply a flareup of her chronic abdominal pain. I did look at the patient has had extensive workups here in the past I also checked her OARRS report as well. Patient is treated here with medications for pain we did send off urinalysis which was benign. And she is discharged home to follow-up with her PRODUCT DEVELOPMENT CARPENTER next week. I did review multiple other provider notes from previous visits to the ER as well. Assessment/Plan Chronic abdominal pain (R10.9: Unspecified abdominal pain) Other chronic pain (G89.29: Other chronic pain) Orders: acetaminophen-hydrocodone, 1 EA, Tab, Oral, Once, Stop date 04/06/25 3:31:00 EDT, STAT, Start date 04/06/25 3:31:00 EDT ketorolac, 60 mg = 2 mL, Injection, IntraMuscular, Once, Stop date 04/06/25 3:31:00 EDT, STAT, Start date 04/06/25 3:31:00 EDT, 04/06/25 3:31:00 EDT UA with Cult Rflx UA with Cult Rflx SP Disposition Plan Discharge Prescription List Prescriptions No active prescription medications Follow-up With When Contact Information Your [employer]ODUCT [employer]ELOPMENT [employer] physician In 3 days 04/09/2025 EDT Additional Instructions: XXXX NONE In 3 days [place] Additional Instructions: Problem List/Past Medical History Ongoing No chronic [...] Never Smokeless Tobacco Use:., 12/04/2021 Lab Results UA Spec Desc: Clean Catch (04/06/25 03:11:00) UA Color: Yellow (04/06/25 03:11:00) UA Clarity: Turbid Abnormal (04/06/25 03:11:00) UA Spec Grav: 1.023 (04/06/25 03:11:00) UA pH: 5.5 (04/06/25 03:11:00) UA Protein: Negat (04/06/25 03:11:00) UA Glucose: Negat (04/06/25 03:11:00) UA Ketones: Negat (04/06/25 03:11:00) UA Bili: Negat (04/06/25 03:11:00) UA Blood: Negat (04/06/25 03:11:00) UA Nitrite: Negat (04/06/25 03:11:00) UA Urobilinogen: Negat (04/06/25 03:11:00) UA Leuk Est: Negat (04/06/25 03:11:00) UA RBC: 0-3 (04/06/25 03:11:00) UA Squam Epithelial: 5-8 (04/06/25 03:11:00) UA WBC: 0-5 (04/06/25 03:11:00) UA Bacteria: Trace (04/06/25 03:11:00) UA Mucous: Trace (04/06/25 03:11:0 (more content not included)...[facility]carawas HospitalComment on above:Result Comment: Electronically Signed By: Konstantni Penny DO\.br\Date and Time Signed: 04/06/25 03:32EDTED Patient Education Noteon [id number] Patient Education NoteED Patient Education NoteNoSelect [facility] Special[facility] Patient Summaryon [id number] Patient SummaryED Patient Summary [place] [address] Patient Discharge Instructions Person Information Name: ANTONIA NOYOAL Age: 40 Years Arrival Date: 04/06/2025 02:58:07 Discharge Diagnosis: Chronic abdominal pain; Other chronic pain Primary Care Physician: NONE, XXXX Provider Information Primary Provider: Konstantin Penny DO Advanced Judo Instructor:None The exam and treatment you received in the Emergency Department were for an urgent problem and are not intended as complete care. It is important that you follow up with a doctor, nurse practitioner,or physician???s program assistant for ongoing care. If your symptoms become worse or you do not improve asexpected and you are unable to reach your usual health care provider, you should return to the Emergency Department. We are available 24 hours a day. ANTONIA NOYOLA has been given the following list of patient education materials, prescriptions and follow-up instructions: Follow-up Instructions: With: Address: When: Your PRODUCT DEVELOPMENT CARPENTER physician In 3 days 04/09/2025 With: Address: When: XXXX NONE , [place] In 3 days In the event that this physician does not participate in your insurance network, please consult with your insurance company to find a nearby participating provider. Patient Education Materials: A MESSAGE TO ALL PATIENTS REGARDING OPIOIDS PRESCRIPTION OPIOIDS: WHAT YOU NEED TO KNOW Prescription opioids can be used to help relieve vheggwaw-tj-xvannd pain and are often prescribed following a [...] guidance from the Food and Drug Administration (www.fda.gov/Drugs/ResourcesForYou). ??? Visit www.cdc.gov/drugoverdose to learn about the risks of opioids abuse and overdose. ??? If you believe you may be struggling with addiction, tell your health career consultant and askfor guidance or call [facility]???S National (more content not included)...NormalSheltering Arms HospitalUA with Cult Rflxon [id number] (U)YellowNormalYellowSheltering Arms HospitalComment on above:Order Comment: Added by Discern ExpertResult Comment: Microscopic readings are only performed on those samples that meet specific criteria set forth by [facility].Performed By: #### [id number] #### [facility] [address], [place] [address]Cgcbchj (U) [Mass/Vol]NegativeNormalNegativeSheltering Arms HospitalComment on above:Order Comment: Added by Discern ExpertPerformed By: #### [id number] #### [facility] [address], [place] [address]Jlmnrvx Ql (U)NegativeNormalNegativeSheltering Arms Hospital Comment on above:Order Comment: Added by Discern ExpertPerformed By: #### [id number] #### [facility] [address], [place] [address]WB BloodNegativeNormalNegRegency Hospital [facility] West Comment on above:Order Comment: Added by Discern ExpertPerformed By: #### [id number] #### [facility] [address], [place] [address]RS BacteriaTraceNormalTraceSheltering Arms HospitalComment on above:Order Comment: Added by Discern ExpertPerformed By: #### [id number] #### [facility] [address], [place] [address]QW ClarityTurbidAbnormalClearFWVUMedicine Barnesville HospitalComment on above:Order Comment: Added by Discern ExpertPerformed By: #### [id number] #### [facility] [address], [place] [address]OV Leuk EstNegativeNormalKettering Health – Soin Medical Center Comment on above:Order Comment: Added by Discern ExpertPerformed By: #### [id number] #### [facility] [address], [place] [address]LE MucousTraceNormalNegRegency Hospital Cleveland WestComment on above:Order Comment: Added by Discern ExpertPerformed By: #### [id number] #### [facility] [address], [place] [address]JT NitriteNegativeNormalNegRegency Hospital [facility] Comment on above:Order Comment: Added by Discern ExpertPerformed By: #### [id number] #### [facility] [address], [place] [address]PT pH5.5Invalid Interpretation Code5.0-9.0[facility] HospitalComment on above:Order Comment: Added by Lis ExpertPerformed By: #### [id number] #### [facility] [address], [place] [address]FV ProteinNegativeNormalNegativeSheltering Arms Hospital Comment on above:Order Comment: Added by Discern ExpertPerformed By: #### [id number] #### [facility] [address], [place] [address]FL EKT4-6Rgqkbt9-8Fwcsov [facility] CenterComment on above: Order Comment: Added by Lis ExpertPerformed By: #### [id number] #### [facility] [address] [place] [address]RO Spec Grav1.023Invalid Interpretation Code1.005-1.030[facility] Arms HospitalComment on above:Order Comment: Added by Discern Expert Performed By: #### [id number] #### [facility] [address], [place] [address]EC Squam Epithelial5-8Invalid Interpretation CodeSheltering Arms HospitalComment on above:Order Comment: Added by Lis ExpertPerformed By: #### [id number] #### [facility] [address], [place] [address]JL UrobilinogenNegativeNormalNegativeSheltering Arms HospitalComment on above:Order Comment: Added by Lis ExpertPerformed By: #### [id number] #### [facility] [address], [place] [address]QE VOY4-3Pqxfql6-3Lrbxtr [facility] CenterComment on above: Order Comment: Added by Lis ExpertPerformed By: #### [id number] #### [facility] [address], [place] [address]Tybctprioyao (U) [Mass/Vol]NegativeNormalNegativeSheltering Arms HospitalComment on above:Order Comment: Added by Lis ExpertPerformed By: #### [id number] #### [facility] [address], [place] [address]XR with Cult Rflx SPon 49-43-5707ZQ Spec DescClean CatchNormal [facility] HospitalComment on above:Performed By: #### [id number] #### [facility] [address], [place] [address]PN Clinical Summaryon [id number] Clinical SummaryED Clinical Summary [address] [address] ED Clinical Summary Person Information Name: ANTONIA NOYOLA/New_Kishore Age: 40 Years : 1985 Sex: Female Language: Senegalese PCP: NONE, XXXX Marital Status: Visit Id: [...] 01/15/2025 04:09:02 01/15/2025 04:09:02 01/15/2025 04:09:02 ADDRESS: [address] [place] [address] [address] [place] [id number] [facility] DOC NOTES: MEDICAL INFORMATION: Prescriptions Given: [...] 01/18/2025 DIAGNOSIS: 1:Chronic abdominal pain; Other chronic painNormalNorthern Regional Hospitaler Aquasco Medical CenterED Note-Physicianon [id number] Note-PhysicianED Note-Physician Basic Information Time Seen: Martin Ladonna SimsAngeles 01/15/2025 03:10 Chief Complaint Pt arrives to [...] She did have hysterectomy and oophorectomy at [facility]. The patient states on May she had ultrasound of her pelvis which showed a cystic mass on the right pelvic area which possible was endometrioma, seroma or possible abscess. The patient states that she is scheduled for another surgery at [facility] for the mass. But, she states that when she went to get that consultation the doctor had an emergency andwas not able to meet with her and now that appointment has been delayed. 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 Pain is a 10 out of 10 sharp and stabbing-like in sensation. Worse to sit, move, or activate her abdominal musculature. No fever or chills. No nausea or vomiting. No diarrhea or constipation. The patientstates this feels the same as exacerbation of her pain. The patient denies any other associated symptoms. Patient states that she cannot go to a pain clinic because they will not prescribe narcotics.She states that they only do procedures at pain clinics and she has been declined at [facility] and at [facility]. Patient stated that she walked here. Review [...] hands were washed with hospital supplied hand hydrographer and then nonlatex gloves were applied. I obtained permission from the patient to examine them. General: Patient is alert and oriented to person place and time. They are able to provide their ownhistory. Patient appears to be nontoxic although in [...] hernias. Normal bowel sounds. No fluid wave. Noabdominal tenderness. Back: No midline point tenderness. No [...] I did review the patient's images from [facility] as well as from [facility]. None of the imagesever showed anything that was actionable via surgery or diagnostic considerations. Is always been pain control. Therefore, I felt like it was not indicated to scan this patient. She is not having anysigns of bowel obstruction. She is having normal [...] its amount of (more content not included)... [facility]aw[facility] HospitalComment on above:Result Comment: Electronically Signed By: Martin Dougherty D.O., Angeles Leos\.br\Date and Time Signed: 01/15/25 04:47 EDTED Patient Summaryon [id number] Patient SummaryED Patient Summary [place] [id number] Patient Discharge Instructions Person Information Name: ANTONIA NOYOLA Age: 40 Years Arrival Date: 01/15/2025 02:39:31 Discharge Diagnosis: 1:Chronic abdominal pain; Other chronic pain Primary Care Physician: NONE, XXXX Provider Information Primary Provider: Angeles Ellsworth D.O. Advanced Judo Instructor:None The exam and treatment you received in the Emergency Department were for an urgent problem and are not intended as complete care. It is important that you follow up with a doctor, nurse practitioner,or physician???s program assistant for ongoing care. If your symptoms become worse or you do not improve asexpected and you are unable to reach your [...] opioids can be used to help relieve epmudkpi-uf-knrweo pain and are often prescribed following a [...] guidance from the Food and Drug Administration (www.fda.gov/Drugs/ResourcesForYou). ??? Visit www.cdc.gov/drugoverdose to learn about the risks of opioids abuse and overdose. ??? If you believe you may be struggling with addiction, tell your health career consultant and askfor guidance or call [facility]???S National Helpline at (more content not included)...[facility]carawas HospitalU Drug Screenon 01-15-2025U Amph ScrNegativeNormalNEGCleveland Clinic Medina HospitalComment on above:Result Comment: Negative Cutoff: <1000 ng/mLPerformed By: #### [id number] #### [facility] [address], [place] [address]O Amy ScrNegativeNormalNEGCleveland Clinic Medina Hospital Comment on above:Result Comment: Negative Cutoff: <200 ng/mLPerformed By: #### [id number] #### [facility] [address], [place] [address]C Benzodia ScrPositiveAbnormalNEGCleveland Clinic Medina HospitalComment on above:Result Comment: If confirmation is required, please notify the lab within 72 hours Result verified by repeat analysis, Unconfirmed by alternate method Negative Cutoff: <200 ng/mLPerformed By: #### [id number] #### [facility] [address], [place] [address]C Cannab ScrNegativeNormalNEGATIVESheltering Arms Hospital Comment on above:Result Comment: Negative Cutoff: <50 ng/mLPerformed By: #### [id number] #### [facility] [address] [place] [address]V Cocaine ScrNegativeNormalNEGCleveland Clinic Medina Hospital Comment on above:Result Comment: Negative Cutoff: <300 ng/mLPerformed By: #### [id number] #### [facility] [address], [place] [address]Y FentanylNegativeNormalNEGATIVESheltering Arms Hospital Comment on above:Result Comment: Negative Cutoff: <5 ng/mL These drug screen results are to be used for medical (i.e., treatment) purposes only. Unconfirmed drug screening results must not be used for non-medical purposes (e.g., employment testing, legal testing).Performed By: #### [id number] #### [facility] [address], [place] [address]Y Opiate ScrNegativeNormalNEGCleveland Clinic Medina Hospital Comment on above:Result Comment: Negative Cutoff: <300 ng/mLPerformed By: #### [id number] #### [facility] [address] [place] [address]W PCP ScrNegativeNormalNEGCleveland Clinic Medina Hospital Comment on above:Result Comment: Negative Cutoff: <25 ng/mL These drug screen results are to be used for medical (i.e., treatment) purposes only. Unconfirmed drug screening results must not be used for non-medical purposes (e.g., employment testing, legal testing).Performed By: #### [id number] #### [facility] [address], [place] [address]WX with Cult Rflxon 28-48-6514Zxtgd (U)ColorlessAbnormalYellow [facility] HospitalComment on above:Result Comment: Microscopic readings are only performed on those samples that meet specific criteria set forth by [facility].Performed By: #### [id number] #### [facility] [address], [place] [address]Jtfezqc (U) [Mass/Vol]NegativeNormalNegativeSheltering Arms HospitalComment on above:Performed By: #### [id number] #### [facility] [address], [place] [address]Kudlkmi Ql (U)NegativeNormalNegativeS[facility] Comment on above:Performed By: #### [id number] #### [facility] [address], [place] [address]RB BloodNegativeNormalNegRegency Hospital [facility] West Comment on above:Performed By: #### [id number] #### [facility] [address], [place] [address]ZD BacteriaTraceNormalTraceSheltering Arms HospitalComment on above:Performed By: #### [id number] #### [facility] [address], [place] [address]FC ClarityClearNormalClearSheltering Arms HospitalComment on above:Performed By: #### [id number] #### [facility] [address], [place] [address]OJ Leuk EstNegativeNormalKettering Health – [facility] Comment on above:Performed By: #### [id number] #### [facility] [address], [place] [address]GR MucousNegativeNormalNegRegency Hospital Cleveland West Comment on above:Performed By: #### [id number] #### [facility] [address], [place] [address]BJ NitriteNegativeNormalNegRegency Hospital [facility] West Comment on above:Performed By: #### [id number] #### [facility] [address], [place] [address]TS pH6.5Invalid Interpretation Code5.0-9.0[facility] HospitalComment on above:Performed By: #### [id number] #### [facility] [address], [place] [address]EZ ProteinNegativeNormalNegativeSheltering Arms Hospital Comment on above:Performed By: #### [id number] #### [facility] [address], [place] [address]ZU ZSZ7-6Dumiyx6-1IprklvWVUMedicine Barnesville HospitalComment on above: Performed By: #### [id number] #### [facility] [address], [place] [address]OA Spec Grav1.009Invalid Interpretation Code1.005-1.030[facility] HospitalComment on above:Performed By: #### [id number] #### [facility] [address], [place] [address]GS Squam Epithelial0-2Invalid Interpretation CodeSheltering Arms HospitalComment on above:Performed By: #### [id number] #### [facility] [address] [place] [address]WO UrobilinogenNegativeNormalNegativeSheltering Arms HospitalComment on above:Performed By: #### [id number] #### [facility] [address], [place] [address]PA YCF3-9Xihabt1-9EmbfgmWVUMedicine Barnesville HospitalComment on above: Performed By: #### [id number] #### [facility] [address], [place] [address]Fzgbckksulxx (U) [Mass/Vol]NegativeNormalNegativeSheltering Arms HospitalComment on above:Performed By: #### [id number] #### [facility] [address], [place] [address]WW Spec DescClean CatchNormalSheltering Arms HospitalComment on above:Performed By: #### [id number] #### [facility] [address], [place] [address]ZOEMG METABOLIC PANELon 23-37-5048Catdv gap [Moles/Vol]7 mmol/L Normal5-15[facility] Rita's Medical CenterComment on above:Performed By: #### STEVE NAYAK, 3040-3, 25738-7, 1987-10, #### [facility] ([id number]) [address] [place] [address]3456Jddgdhe [Mass/Vol]9.1 mg/dLNormal8.5-10.5PFostoria City HospitalComment on above:Performed By: #### STEVE NAYAK, 3040-3, 44090-0, 1987-10, #### [facility] ([id number]) [address] [place] [address] 60656Cicqbkbd [Moles/Vol]107 mmol/YYhddey64-533QewPusnhmGraham Regional Medical CenterComment on above:Performed By: #### STEVE NAYAK, 3040-3, 59788-3, 1987-10, #### [facility] ([id number]) [address] [place] [address] 11601KO4 [Moles/Vol]24 mmol/TZxohec55-39TdgPnwtqnFostoria City Hospital Comment on above:Performed By: #### STEVE NAYAK, 3040-3, 37233-5, 1987-10, #### [facility] ([id number]) [address] [place] [address] 84620Mawjcrduzg [Mass/Vol]0.64 mg/dLNormal0.40-1.00ProGraham Regional Medical CenterComment on above:Result Comment: METHOD TRACEABLE TO IDMS STANDARD Performed By: #### STEVE NAYAK, 3040-3, 24074-3, 1987-10, #### [facility] ([id number]) [address] [place] [address] 95306OOZZ (CKD-EPI) NON-RACE DEPENDENT>^90Normal>=60ProGraham Regional Medical CenterComment on above:Result Comment: eGFR not reported due to non- numeric value for Creatinine. Reported eGFR is based on the CKD-EPI 2020 equation that does not use a race coefficient.Performed By: #### STEVE NAYAK, 3040-3, 46792-7, , #### [facility] ([id number]) [address] [place] [address] 79865Hgffurl [Mass/Vol]102 mg/sMLgsu21-05WijFiesbwMercy Health St. [facility]'s Medical Center Comment on above:Performed By: #### STEVE NAYAK, 3040-3, 69515-4, 1987-10, #### [facility] ([id number]) [address] [place] [address] 27140Cxcujtaet [Moles/Vol]3.4 mmol/LLow3.5-5.0ProGraham Regional Medical CenterComment on above:Performed By: #### STEVE NAYAK, 3040-3, , 1987-10, #### [facility] ([id number]) [address] [place] [address] 65727Tmyhfk [Moles/Vol]138 mmol/KXdltgu820-208ElyMhjnzj [place] HospitalComment on above:Performed By: #### STEVE NAYAK, 3040-3, 67620-4, 1987-10, #### [facility] ([id number]) [address] [place] [address] 88578Evgg nitrogen [Mass/Vol]7 mg/dLNormal5-23ProGraham Regional Medical CenterComment on above:Performed By: #### STEVE NAYAK, 3040-3, 98349-9, 1987-10, #### [facility] ([id number]) [address] [place] [address] 89319FUX WITH AUTO DIFFERENTIALon 65-96-6484MVWFYBFFU ABSOLUTE COUNT (10*3/UL) BY AUTOMATED COUNT0.1 10*3/uLNormal0.0-0.2PFostoria City Hospital Comment on above:Performed By: #### CBCA, CMP, 3040-3, 32776-7, 1987-10, #### [facility] ([id number]) [address] [place] [address] 69321NGOLYQYTF RELATIVE PERCENT BY AUTOMATED COUNT0.9 %Normal [facility] Rita's Medical CenterComment on above:Performed By: #### CBCA, CMP, 3040-3, 94225-6, 1987-10, #### [facility] ([id number]) [address] [place] [address] 99108XFHTZOCZQNZ DIFFERENTIAL TYPEAUTOMATED DIFFERENTIALNormal [facility] Rita's Medical CenterComment on above:Performed By: #### CBCA, CMP, 3040-3, 82323-5, 1987-10, #### [facility] ([id number]) [address] [place] [address] 00172Tsishrlggfy (Bld) [#/Vol]0.1 10*3/uLNormal0.0-0.4[facility] HospitalComment on above:Performed By: #### CBCA, CMP, 3040-3, 08634-5, 1987-10, #### [facility] ([id number]) [address] [place] [address] 57033PFDXTOVTUAD RELATIVE PERCENT BY AUTOMATED COUNT0.7 %Normal [facility] Rita's Medical CenterComment on above:Performed By: #### CBCA, CMP, 3040-3, 79679-2, 1987-10, #### [facility] ([id number]) [address] [place] [address] 10697Sqclhdlesqj distribution width (RBC) [Ratio]19.6 %High11.5-[address] Rita's Medical CenterComment on above:Performed By: #### CBCA, CMP, 3040-3, 82700-0, 1987-10, #### [facility] ([id number]) [address] [place] [address] 12408Kslxueqgts (Bld) [Volume fraction]36.0 %Godkok56-83JquLgibcaGraham Regional Medical CenterComment on above:Performed By: #### CBCA, CMP, 3040-3, 42334-3, 1987-10, #### [facility] ([id number]) [address] [place] [address] 13962Irvgnhiitt (Bld) [Mass/Vol]11.3 g/dLLow11.7-15.5PFostoria City HospitalComment on above:Performed By: #### CBCA, CMP, 3040-3, 39903-6, 1987-10, #### [facility] ([id number]) [address] [place] [address] 39076COLOKSRQROU ABSOLUTE COUNT (10*3/UL) BY AUTOMATED COUNT2.3 10*3/uLNormal1.0-3.5PFostoria City HospitalComment on above:Performed By: #### CBCA, CMP, 3040-3, 80601-3, 1987-10, #### [facility] ([id number]) [address] [place] [address] 59878ILGIFNEVZZR RELATIVE PERCENT BY AUTOMATED COUNT26.4 %Normal [facility] HospitalComment on above:Performed By: #### CBCA, CMP, 3040-3, 08896-7, 1987-10, #### [facility] ([id number]) [address] [place] [address] 65415SEM (RBC) [Entitic mass]23.6 duIyo40-08HiyKdvoahGraham Regional Medical CenterComment on above:Performed By: #### CBCA, CMP, 3040-3, 09791-3, 1987-10, #### [facility] ([id number]) [address] [place] [address] 60654BRGM (RBC) [Mass/Vol]31.3 g/rJLna92-20KpoOcpbhnMercy Health St. Rita's Medical CenterComment on above:Performed By: #### CBCA, CMP, 3040-3, 39298-6, 1987-10, #### [facility] ([id number]) [address] [place] [address] 01440YBC (RBC) [Entitic vol]75 oKMxp91-341ThiEbtkbdMercy Health St. Rita's Medical Center Comment on above:Performed By: #### CBCA, CMP, 3040-3, 82833-1, 1987-10, #### [facility] ([id number]) [address] [place] [address] 09693RFIOUYPDN ABSOLUTE COUNT (10*3/UL) BY AUTOMATED COUNT0.6 10*3/uLNormal0.0-0.9ProGraham Regional Medical CenterComment on above:Performed By: #### CBCA, CMP, 3040-3, 73428-3, 1987-10, #### [facility] ([id number]) [address] [place] [address] 11313TUWQTJGSO RELATIVE PERCENT BY AUTOMATED COUNT6.9 %Normal ProMMercy HospitalComment on above:Performed By: #### CBCA, CMP, 3040-3, 38043-8, 1987-10, #### [facility] ([id number]) [address] [place] [address] 56362WPWFHDUBGOY ABSOLUTE COUNT BY AUTOMATED COUNT5.7 10*3/uLNormal 1.5-6.6[facility] St. Rita's Medical CenterComment on above:Performed By: #### CBCA, CMP, 3040-3, 64118-9, 1987-10, #### [facility] ([id number]) [address] FLO[address] [place], [place] [address]WJSGSNDDEXQ RELATIVE PERCENT BY AUTOMATED COUNT65.1 %Normal [facility] Rita's Medical CenterComment on above:Performed By: #### MALINI, CMP, 3040-3, 68823-4, 1987-10, #### [facility] ([id number]) [address] [place] [address] 53841Vzngrfuw mean volume (Bld) [Entitic vol]8.6 fLNormal7-[address] Rita's Medical CenterComment on above:Performed By: #### CBCA, CMP, 3040-3, 74727-1, 1987-10, #### [facility] ([id number]) [address] [place] [address] 02020Kzmmyyutk (Bld) [#/Vol]593 10*3/kEEikm777-094AziUvswioGraham Regional Medical CenterComment on above:Performed By: #### MALINI, CMP, 3040-3, 67513-8, 1987-10, #### [facility] ([id number]) [address] [place] [address] 09289FYO COUNT4.78 X10E12/LNormal3.8-5.2PFostoria City Hospital Comment on above:Performed By: #### ARACELISA, CMP, 3040-3, 84623-9, 1987-10, #### [facility] ([id number]) [address] [place] [address] 83412LCX (Bld) [#/Vol]8.7 10*3/uLNormal4-11[facility]. Rita's Medical CenterComment on above:Performed By: #### CBCA, CMP, 3040-3, 84624-5, 1987-10, #### [facility] ([id number]) [address] [place] [address] 05909TU ABDOMEN AND PELVIS W CONTon 38-96-6657LL ABDOMEN AND PELVIS W CONTCT ABDOMEN AND PELVIS W CONT EXAM: ABDOMEN AND PELVIS CT WITH CONTRAST CLINICAL INFORMATION: chronic RLQ pain, ovarian remnant syndrome. TECHNIQUE: CT abdomen and pelvis was performed utilizing 5 mm axial reconstructions following the uneventful administration of nonionic intravenous contrast. Coronal and sagittal reformatted images as well as delayed excretory phase images were obtained and reviewed. Automated exposure control was u tilized. COMPARISON: 09/28/2024 FINDINGS: The limited visualized lung bases are unremarkable. The liver is unremarkable. The gallbladder is surgically absent. The spleen is normal. The pancreasis unremarkable. The right kidney is normal. The [...] by Laurent Larsen MD on 12/06/2024 6:[address] [facility] Medical Center LIPASEon 64-18-6243Kprqta [Catalytic activity/Vol]44 U/MXfhw85-29EimCufhadMercy Health St. Rita's Medical CenterComment on above:Performed By: #### STEVE NAYAK, 3040-3, 66972-5, #### [facility] ([id number]) [address] [place] [address] 01871WKYOW PANELon 87-02-7488Coydccm [Mass/Vol]4.2 g/dLNormal3.2-5.3 ProMedicTahoe Forest HospitalComment on above:Performed By: #### STEVE NAYAK, 3040-3, 40941-7, #### [facility] ([id number]) [address] [place] [address] 86968YPN [Catalytic activity/Vol]70 U/YJnqivb38-392XobGuesuuMercy Health St. Rita's Medical CenterComment on above:Performed By: #### STEVE NAYAK, 3040-3, 14902-8, 1987-10, #### [facility] ([id number]) [address] [place] [address] 37708BUU [Catalytic activity/Vol]15 U/LNormal<=31ProMedTorrance Memorial Medical CenterComment on above:Performed By: #### MALINI, STEVE, 3040-3, 09101-4, 1987-10, #### [facility] ([id number]) [address] [place] [address] 53257JTR [Catalytic activity/Vol]18 U/LNormal<=41ProGraham Regional Medical CenterComment on above:Performed By: #### MALINI, STEVE, 3040-3, 40035-9, 1987-10, #### [facility] ([id number]) [address] [place] [address] 93036Omdmxgwdz [Mass/Vol]0.2 mg/dLLow0.3-1.2PFostoria City HospitalComment on above:Performed By: #### STEVE NAYAK, 3040-3, 56607-4, 1987-10, #### [facility] ([id number]) [address] [place] [address] 33091Kudtpkhhp.indirect [Mass/Vol]mg/dLNormal<=0.4ProGraham Regional Medical CenterComment on above:Performed By: #### MALINI, STEVE, 3040-3, 73621-0, 1987-10, #### [facility] ([id number]) [address] [place] [address] 76317Lacvits [Mass/Vol]7.7 g/dLNormal6.0-8.0ProGraham Regional Medical CenterComment on above:Performed By: #### MALINI, STEVE, 3040-3, 75456-7, 1987-10, #### [facility] ([id number]) [address] [place] [address] [place] [address]VXVM NURSING URINE MACROSCOPIC UAon 68-76-1002EHBSZKCJW AUDREY NegativeNormalNegMarietta Osteopathic ClinicComment on above:Performed By: #### CBCA, CMP, 3040-3, 41658-3, 1987-10, #### [facility] ([id number]) [address] [place] [address] [place] [address]YZKIZ/HGB NURSmallAbnormalNegMarietta Osteopathic Clinic Comment on above:Performed By: #### MALINI, CMP, 3040-3, 48365-0, 1987-10, #### [facility] ([id number]) [address] [place] [address] [place] [address]HRSNFDB NURNegativeNormalNegMarietta Osteopathic Clinic Comment on above:Performed By: #### ARACELISA, CMP, 3040-3, 67533-8, 1987-10, #### [facility] ([id number]) [address] [place] [address] [place] [address]QMYVFXA NURNegativeNormalNegMarietta Osteopathic Clinic Comment on above:Performed By: #### ARACELISA, CMP, 3040-3, 85597-0, 1987-10, #### [facility] ([id number]) [address] [place] [address], [place] [address]OVGEUTANS ESTERASE NURNegativeNormalNegativeMercy Health St. Rita's Medical CenterComment on above:Performed By: #### CBCA, CMP, 3040-3, 61289-4, 1987-10, #### [facility] ([id number]) [address] [place] [address] [place] [address]UXNQYIL NURNegativeNormalNegativeMercy Health St. Rita's Medical Center Comment on above:Performed By: #### CBCA, CMP, 3040-3, 05300-9, 1987-10, #### [facility] ([id number]) [address] [place] [address] 28846VN NUR7.6Mkorxv2.0, 6.0, 6.5, 7.0, 7.5, 8.0, 8.5, 5.5PFostoria City HospitalComment on above:Performed By: #### STEVE NAYAK, 3040-3, 87480-8, 1987-10, #### [facility] ([id number]) [address] [place] [address] 39408JQEUPQC NURNegativeNormalNegativeMercy Health St. Rita's [facility] Center Comment on above:Performed By: #### STEVE NAYAK, 3040-3, , 1987-10, #### [facility] ([id number]) [address] [place] [address] 17404YPNPRQHX GRAVITY NUR1.724Feexeb1.010, 1.015, 1.020, 1.025 [facility] Vacavalley HospitalComment on above:Performed By: #### STEVE NAYAK, 3040-3, , 1987-10, #### [facility] ([id number]) [address] [place] [address] 87350KDQECUSGVPMH NUR0.2 E.U./dLNormalMercy Health [address] Rita's [facility] Center Comment on above:Performed By: #### MALINI, CMP, 3040-3, 48491-8, 1987-10, #### [facility] ([id number]) [address] [place] [address] 35382MIF AND AUTO DIFFon 30-18-6472NTRNFUCX BASOPHIL0.1 X10E9/L Normal0.0-0.2PFostoria City HospitalComment on above:Performed By: #### STEVE NAYAK, 3040-3, , 1987-10, #### [facility] ([id number]) [address] [place] [address] 96617UGLQUHGK NEUTROPHIL7.3 X10E9/LHigh1.5-6.6ProGraham Regional Medical CenterComment on above:Performed By: #### CBCA, CMP, 3040-3, 69083-6, 1987-10, #### [facility] ([id number]) [address] [place] [address] 59034Myducwvwb/100 WBC (Bld)0.6 %[facility] Comment on above:Performed By: #### CBCA, CMP, 3040-3, 62399-6, 1987-10, #### [facility] ([id number]) [address] [place] [address] 45491Khbygpefkct (Bld) [#/Vol]0.0 10*3/uLNormal0.0-0.4[facility] Rita's Medical CenterComment on above:Performed By: #### CBCA, CMP, 3040-3, 85599-0, 1987-10, #### [facility] ([id number]) [address] [place] [address] 53187Gvzaqqctgsj/100 WBC (Bld)0.1 %[facility] Comment on above:Performed By: #### CBCA, CMP, 3040-3, 94177-7, 1987-10, #### [facility] ([id number]) [address] [place] [address] 97785Bgekqfhqaxx distribution width (RBC) [Ratio]21.0 %High11.5-15.[address] Rita's Medical CenterComment on above:Performed By: #### CBCA, CMP, 3040-3, 63253-3, 1987-10, #### [facility] ([id number]) [address] [place] [address] 65576Muoqnabujj (Bld) [Volume fraction]35.8 %Cqckbl20-10AgdXsohwiGraham Regional Medical CenterComment on above:Performed By: #### CBCA, CMP, 3040-3, 31752-1, 1987-10, #### [facility] ([id number]) [address] [place] [address] 67619Uwhnpjgpsg (Bld) [Mass/Vol]11.4 g/dLLow11.7-15.5PFostoria City HospitalComment on above:Performed By: #### CBCA, CMP, 3040-3, 63066-6, 1987-10, #### [facility] ([id number]) [address] [place] [address] 98600Iypovqokovf (Bld) [#/Vol]1.8 10*3/uLNormal1.0-3.5PFostoria City HospitalComment on above:Performed By: #### CBCA, CMP, 3040-3, 61702-2, 1987-10, #### [facility] ([id number]) [address] [place] [address] 98817Psnchhxngkb/100 WBC (Bld)18.4 %NormalMercy Health St. [facility]'s Medical Center Comment on above:Performed By: #### CBCA, CMP, 3040-3, 71198-3, 1987-10, #### [facility] ([id number]) [address] [place] [address] 96583ZUV (RBC) [Entitic mass]24.0 hnCmi68-40ZuhUahbtnGraham Regional Medical CenterComment on above:Performed By: #### CBCA, CMP, 3040-3, 35974-9, 1987-10, #### [facility] ([id number]) [address] [place] [address] 67817ZDWH (RBC) [Mass/Vol]31.8 g/oPUkv61-16RjcUfvxouMercy Health St. Rita's Medical CenterComment on above:Performed By: #### CBCA, CMP, 3040-3, 26018-0, 1987-10, #### [facility] ([id number]) [address] [place] [address] 96414UUV (RBC) [Entitic vol]76 gHFei26-026GwrPshswzMercy Health St. [facility] Comment on above:Performed By: #### CBCA, CMP, 3040-3, 13143-9, 1987-10, #### [facility] ([id number]) [address] [place] [address] 14915Vvpgpujte (Bld) [#/Vol]0.5 10*3/uLNormal0-0.9Mercy Health St. Rita's Medical CenterComment on above:Performed By: #### CBCA, CMP, 3040-3, 54523-2, 1987-10, #### [facility] ([id number]) [address] [place] [address] 75451Wusryjgjs/100 WBC (Bld)4.9 %NormalMercy Health St. [facility]'s [facility] Comment on above:Performed By: #### CBCA, CMP, 3040-3, 08275-0, 1987-10, #### [facility] ([id number]) [address] [place] [address] 99633Wrxfnklrhnc/100 WBC (Bld)76.0 %NormalMercy Health St. [facility]'s [facility] Comment on above:Performed By: #### CBCA, CMP, 3040-3, 25865-7, 1987-10, #### [facility] ([id number]) [address] [place] [address] 70797Njdtwjuf mean volume (Bld) [Entitic vol]8.0 fLNormal7-12 ProMMercy HospitalComment on above:Performed By: #### MALINI, STEVE, 3040-3, 36743-4, 1987-10, #### [facility] ([id number]) [address] [place] [address] 69069Riiuaczvf (Bld) [#/Vol]503 10*3/pDKyao389-835WupFggxlxGraham Regional Medical CenterComment on above:Performed By: #### MALINI, STEVE, 3040-3, 11491-4, 1987-10, #### [facility] ([id number]) [address] [place] [address] 53710EIQ COUNT4.75 X10E12/LNormal3.80-5.20ProGraham Regional Medical Center Comment on above:Performed By: #### STEVE NAYAK, 0-3, 99504-3, 1987-10, #### [facility] ([id number]) [address] [place] [address] 01592HXX (Bld) [#/Vol]9.6 10*3/uLNormal4.0-11.0ProGraham Regional Medical CenterComment on above:Performed By: #### STEVE NAYAK, 3040-3, 63047-0, 1987-10, #### [facility] ([id number]) [address] [place] [address] [phone] METABOLIC PANELon 34-52-5003Dtiizrv [Mass/Vol]4.3 g/dLNormal3.2-5.3PFostoria City HospitalComment on above:Performed By: #### STEVE NAYAK, 3040-3, 70016-0, 1987-10, #### [facility] ([id number]) [address] [place] [address] 97946IXB [Catalytic activity/Vol]76 U/UWxzbqb18-256FwcAigjuhGraham Regional Medical CenterComment on above:Performed By: #### MALINI, STEVE, 3040-3, 12324-4, 1987-10, #### [facility] ([id number]) [address] [place] [address] 90400OER [Catalytic activity/Vol]26 U/LNormal0-31PFostoria City HospitalComment on above:Performed By: #### STEVE NAYAK, 3040-3, 06628-2, 1987-10, #### [facility] ([id number]) [address] [place] [address] 65730Mfcla gap [Moles/Vol]10 mmol/LNormal5-15[facility] St. Rita's Medical CenterComment on above:Performed By: #### STEVE NAYAK, 3040-3, 21893-9, 1987-10, #### [facility] ([id number]) [address] [place] [address] 69477CAK [Catalytic activity/Vol]24 U/LNormal0-41ProGraham Regional Medical CenterComment on above:Performed By: #### STEVE NAYAK, 3040-3, 37815-2, 1987-10, #### [facility] ([id number]) [address] [place] [address] 72052Uxmuearuf [Mass/Vol]0.3 mg/dLNormal0.3-1.2PFostoria City HospitalComment on above:Performed By: #### MALINI, STEVE, 3040-3, 04709-3, 1987-10, #### [facility] ([id number]) [address] [place] [address] 52980Movfjfh [Mass/Vol]9.6 mg/dLNormal8.5-10.5PFostoria City HospitalComment on above:Performed By: #### STEVE NAYAK, 3040-3, 17267-0, 1987-10, #### [facility] ([id number]) [address] [place] [address] 55083Oggiklym [Moles/Vol]106 mmol/XZwnisu93-968DiiQwvlxfMercy Health St. Rita's Medical CenterComment on above:Performed By: #### STEVE NAYAK, 3040-3, 28549-5, 1987-10, #### [facility] ([id number]) [address] [place] [address] 47824GK9 [Moles/Vol]20 mmol/PVaw53-38RppJyrqlaFostoria City Hospital Comment on above:Performed By: #### STEVE NAYAK, 3040-3, 08077-1, 1987-10, #### [facility] ([id number]) [address] [place] [address] 86737Ssjsxlyrbg [Mass/Vol]0.76 mg/dLNormal0.40-1.00Mer[facility] St. Rita's Medical CenterComment on above:Result Comment: METHOD TRACEABLE TO IDMS STANDARD Performed By: #### STEVE NAYAK, 3040-3, 68757-2, 1987-10, #### [facility] ([id number]) [address] [place] [address] 81706lGMY (CKD-EPI) NON-RACE DEPENDENT>90Normal>59ProGraham Regional Medical CenterComment on above:Result Comment: Reported eGFR is based on the CKD-EPI 2020 equation that does not use a race coefficient.Performed By: #### STEVE NAYAK, 3040-3, 84557-9, , #### [facility] ([id number]) [address] [place] [address] 04445Pawouwq [Mass/Vol]106 mg/uQMuaq36-94ItyQpeustMercy Health St. Rita's Medical Center Comment on above:Performed By: #### MALINI, STEVE, 3040-3, 85536-0, 1987-10, #### [facility] ([id number]) [address] [place] [address] 33420Tbuukzfdd [Moles/Vol]3.7 mmol/LNormal3.5-5.0ProGraham Regional Medical CenterComment on above:Performed By: #### STEVE NAYAK, 3040-3, 00899-3, 1987-10, #### [facility] ([id number]) [address] [place] [address] 29532Gzocwfp [Mass/Vol]8.1 g/dLHigh6.0-8.0[facility] Comment on above:Performed By: #### STEVE NAYAK, 3040-3, , 1987-10, #### [facility] ([id number]) [address] [place] [address] 84933Rxxgdv [Moles/Vol]136 mmol/GKnripk904-211MjgBckjuq [facility]rem[facility] HospitalComment on above:Performed By: #### STEVE NAYAK, 3040-3, 46170-4, 1987-10, #### [facility] ([id number]) [address] [place] [address] 39012Gtpz nitrogen [Mass/Vol]5 mg/dLNormal5-ProGraham Regional Medical CenterComment on above:Performed By: #### STEVE NAYAK, 3040-3, 86112-6, 1987-10, #### [facility] ([id number]) [address] [place] [address] 16708XXAPZ METABOLIC PANLon 78-70-4530Ewukf gap [Moles/Vol]10 mmol/L Normal5-15ProGraham Regional Medical CenterComment on above:Performed By: #### STEVE NAYAK, 3040-3, 92599-9, 1987-10, #### [facility] ([id number]) [address] [place], [place] [address]Tbipupu [Mass/Vol]9.2 mg/dLNormal8.5-10.5PFostoria City HospitalComment on above:Performed By: #### STEVE NAYAK, 3040-3, 64003-2, 1987-10, #### [facility] ([id number]) [address] [place] [address] 20443Litzjphe [Moles/Vol]107 mmol/XNlulgy47-858AjwWfazejGraham Regional Medical CenterComment on above:Performed By: #### STEVE NAYAK, 3040-3, 93404-3, 1987-10, #### [facility] ([id number]) [address] [place] [address] 16183ED8 [Moles/Vol]20 mmol/XTwc45-72DmpPtkwwkFostoria City Hospital Comment on above:Performed By: #### STEVE NAYAK, 3040-3, , 1987-10, #### [facility] ([id number]) [address] [place] [address] 47294Lbwxlgelvd [Mass/Vol]0.78 mg/dLNormal0.40-1.00Mer[facility] St. Rita's Medical CenterComment on above:Result Comment: METHOD TRACEABLE TO IDMS STANDARD Performed By: #### STEVE NAYAK, 3040-3, 02594-7, 1987-10, #### [facility] ([id number]) [address] [place] [address] 80870uDZQ (CKD-EPI) NON-RACE DEPENDENT>90Normal>59ProGraham Regional Medical CenterComment on above:Result Comment: Reported eGFR is based on the CKD-EPI 2020 equation that does not use a race coefficient.Performed By: #### STEVE NAYAK, 3040-3, 29206-5, , #### [facility] ([id number]) [address], [address] [place], [place] [address]Fhtcamh [Mass/Vol]108 mg/iCMrus87-76TviGgcbelMercy Health St. Rita's Medical Center Comment on above:Performed By: #### STEVE NAYAK, 3040-3, , 1987-10, #### [facility] ([id number]) [address] [place] [address] 25663Pzfudfxko [Moles/Vol]3.5 mmol/LNormal3.5-5.0ProGraham Regional Medical CenterComment on above:Performed By: #### STEVE NAYAK, 3040-3, , 1987-10, #### [facility] ([id number]) [address] [place] [address], [place] [address]Thkdxc [Moles/Vol]137 mmol/HEgbjjg031-595CbnBvqubq [facility] HospitalComment on above:Performed By: #### STEVE NAYAK, 3040-3, , 1987-10, #### [facility] ([id number]) [address] [place] [address] 31906Vgvm nitrogen [Mass/Vol]9 mg/dLNormal5-23ProGraham Regional Medical CenterComment on above:Performed By: #### STEVE NAYAK, 3040-3, , 1987-10, #### [facility] ([id number]) [address] [place] [address] 42840RMD AND AUTO DIFFon 07-71-9501NSCZUWLK BASOPHIL0.1 X10E9/L Normal0.0-0.2ProMedTorrance Memorial Medical CenterComment on above:Performed By: #### STEVE NAYAK, 3040-3, , 1987-10, #### [facility] ([id number]) [address] [place] [address] 63344WPTIYXBR NEUTROPHIL6.8 X10E9/LHigh1.5-6.6ProGraham Regional Medical CenterComment on above:Performed By: #### CBCA, CMP, 3040-3, 87680-8, 1987-10, #### [facility] ([id number]) [address] [place] [address] 04139Kpyjswamc/100 WBC (Bld)1.3 %[facility] Comment on above:Performed By: #### CBCA, CMP, 3040-3, 99388-6, 1987-10, #### [facility] ([id number]) [address] [place] [address] 33046Vtwnoxuxyar (Bld) [#/Vol]0.0 10*3/uLNormal0.0-0.4[facility] St. Rita's Medical CenterComment on above:Performed By: #### CBCA, CMP, 3040-3, 08123-0, 1987-10, #### [facility] ([id number]) [address] [place] [address] 39801Sxqphbudkwm/100 WBC (Bld)0.1 %[facility] Comment on above:Performed By: #### CBCA, CMP, 3040-3, 87338-9, 1987-10, #### [facility] ([id number]) [address] [place] [address] 23724Wqepdweqbud distribution width (RBC) [Ratio]20.5 %High11.5-15.[address] Rita's Medical CenterComment on above:Performed By: #### CBCA, CMP, 3040-3, 90109-2, 1987-10, #### [facility] ([id number]) [address] [place] [address] 14657Vbvwspuomy (Bld) [Volume fraction]34.3 %Fgn95-14NrpDeynydGraham Regional Medical CenterComment on above:Performed By: #### CBCA, CMP, 3040-3, 58914-2, 1987-10, #### [facility] ([id number]) [address] [place] [address] 70263Mbuyfndqab (Bld) [Mass/Vol]11.2 g/dLLow11.7-15.5PFostoria City HospitalComment on above:Performed By: #### CBCA, CMP, 3040-3, 60645-8, 1987-10, #### [facility] ([id number]) [address] [place] [address] 18074Llzhcqaroqj (Bld) [#/Vol]3.4 10*3/uLNormal1.0-3.5PFostoria City HospitalComment on above:Performed By: #### CBCA, CMP, 3040-3, 01786-7, 1987-10, #### [facility] ([id number]) [address] [place] [address] 49945Amlkpakbopv/100 WBC (Bld)30.9 %NormalMercy Health St. Rita's Medical Center Comment on above:Performed By: #### CBCA, CMP, 3040-3, 89859-8, 1987-10, #### [facility] ([id number]) [address] [place] [address] 56298WDX (RBC) [Entitic mass]24.4 jnAvl63-29TazCcyeuqGraham Regional Medical CenterComment on above:Performed By: #### CBCA, CMP, 3040-3, 75734-2, 1987-10, #### [facility] ([id number]) [address] [place] [address] 58740FGTI (RBC) [Mass/Vol]32.7 g/gCDmmpcg11-61GgyWpanrdGraham Regional Medical CenterComment on above:Performed By: #### CBCA, CMP, 3040-3, 46920-1, 1987-10, #### [facility] ([id number]) [address] [place] [address] 75917HUN (RBC) [Entitic vol]75 qMUmo28-941VgoXnofmvMercy Health St. Rita's Medical Center Comment on above:Performed By: #### CBCA, CMP, 3040-3, 03027-8, 1987-10, #### [facility] ([id number]) [address] [place] [address] 58382Xjcuxznko (Bld) [#/Vol]0.7 10*3/uLNormal0-0.9[facility] St. Rita's Medical CenterComment on above:Performed By: #### CBCA, CMP, 3040-3, 23114-6, 1987-10, #### [facility] ([id number]) [address] [place] [address] 59290Mbwdxqcfm/100 WBC (Bld)6.2 %[facility] Comment on above:Performed By: #### CBCA, CMP, 3040-3, 61484-8, 1987-10, #### [facility] ([id number]) [address] [place] [address] 37468Xxcrxjzhnee/100 WBC (Bld)61.5 %[facility] Comment on above:Performed By: #### CBCA, CMP, 3040-3, 54431-9, 1987-10, #### [facility] ([id number]) [address] [place] [address] 24476Jushljju mean volume (Bld) [Entitic vol]7.9 fLNormal7-[address] Rita's Medical CenterComment on above:Performed By: #### CBCA, CMP, 3040-3, 41879-7, 1987-10, #### [facility] ([id number]) [address] [place] [address] 24812Lovrlscfa (Bld) [#/Vol]473 10*3/fIYulm022-849IcfYcxanbGraham Regional Medical CenterComment on above:Performed By: #### MALINI, STEVE, 3040-3, 49749-9, 1987-10, #### [facility] ([id number]) [address] [place] [address] 59737YXK COUNT4.59 X10E12/LNormal3.80-5.20ProG[facility] Center Comment on above:Performed By: #### MALINI, STEVE, 3040-3, 23509-4, 1987-10, #### [facility] ([id number]) [address] [place] [address] 44896VME (Bld) [#/Vol]11.0 10*3/uLNormal4.0-11.0ProGraham Regional Medical CenterComment on above:Performed By: #### ARACELISA, STEVE, 3040-3, 64444-9, 1987-10, #### [facility] ([id number]) [address] [place] [address] 67180LC ABDOMEN AND PELVIS W CONTon 80-36-0673GL ABDOMEN AND PELVIS W CONTCT ABDOMEN AND PELVIS W CONT CT ABDOMEN [...] may represent ovarian remnants [with somewhat atypical loc ation] and follicular changes. Pelvic MR could more optimally characterize this observation and assess for additional features of infiltrating endometriosis. All CT scans at this facility use dose modulation, iterative reconstruction, and/or weight based dosing when appropriate to reduce radiation dose to as low as reasonably achievable. Finalized by Patricio Power MD on 09/28/2024 1:22 AMNormalProGraham Regional Medical CenterLIVER PANELon 95-94-6875Wtymwzn [Mass/Vol]4.2 g/dLNormal3.2-5.3PFostoria City HospitalComment on above:Performed By: #### STEVE NAYAK, 3040-3, 90000-1, 1987-10, #### [facility] ([id number]) [address] [place] [address] 65103IPK [Catalytic activity/Vol]66 U/EBcmtyn82-935BbnZlmyamGraham Regional Medical CenterComment on above:Performed By: #### STEVE NAYAK, 3040-3, 32951-6, 1987-10, #### [facility] ([id number]) [address] [place] [address] 34707RKJ [Catalytic activity/Vol]13 U/LNormal0-31PFostoria City HospitalComment on above:Performed By: #### STEVE NAYAK, 3040-3, 62706-2, 1987-10, #### [facility] ([id number]) [address] [place] [address] 65031XGM [Catalytic activity/Vol]18 U/LNormal0-41[facility]. Rita's Medical CenterComment on above:Performed By: #### STEVE NAYAK, 3040-3, 01480-8, 1987-10, #### [facility] ([id number]) [address] [place] [address] 16107Wijjhgdgd [Mass/Vol]0.6 mg/dLNormal0.3-1.2[facility] Vacavalley HospitalComment on above:Performed By: #### STEVE NAYAK, 3040-3, 39654-0, 1987-10, #### [facility] ([id number]) [address] [place] [address] 29923Hydqlwkhu.indirect [Mass/Vol]mg/dLNormal0.0-0.4ProGraham Regional Medical CenterComment on above:Performed By: #### STEVE NAYAK, 3040-3, 86472-5, 1987-10, #### [facility] ([id number]) [address] [place] [address] 77592Xqjiirj [Mass/Vol]8.2 g/dLHigh6.0-8.0ProG[facility] Comment on above:Performed By: #### STEVE NAYAK, 3040-3, 30003-2, 1987-10, #### [facility] ([id number]) [address] [place] [address] 79913HTC MACROSCOPIC NURon 01-48-9466TOYWYJYKH NURNegativeNormalNEG ProMMercy HospitalComment on above:Performed By: #### STEVE NAYAK, 3040-3, 83866-0, 1987-10, #### [facility] ([id number]) [address] [place] [address] 64176HVIKK/HGB NURNegativeNormalNEGProGraham Regional Medical CenterComment on above:Performed By: #### STEVE NAYAK, 3040-3, 55665-5, 1987-10, #### [facility] ([id number]) [address] [place] [address] 31814PNHEPCG NURNegativeNormalNEGProGraham Regional Medical CenterComment on above:Performed By: #### MALINI, STEVE, 3040-3, 65650-2, 1987-10, #### [facility] ([id number]) [address] [place] [address] 46160IIOMSCF NURNegativeNormalNEGProGraham Regional Medical CenterCommymichigan medical center sault on above:Performed By: #### MALINI, STEVE, 3040-3, 24179-1, 1987-10, #### [facility] ([id number]) [address] [place] [address] [place] [address]CLCXSAVJD ESTERASE NURNegativeNormalNEGMercy Health St. Rita's Medical CenterComment on above:Performed By: #### MALINI, STEVE, 3040-3, 76638-7, 1987-10, #### [facility] ([id number]) [address] [place] [address] 65907OPGIEFM NURNegativeNormalNEGProGraham Regional Medical CenterComment on above:Performed By: #### STEVE NAYAK, 3040-3, 42956-3, 1987-10, #### [facility] ([id number]) [address] [place] [address] 14331RR NUR6.3Clomvy2.0-8.5[facility] Vac[facility] HospitalComment on above:Performed By: #### STEVE NAYAK, 3040-3, 20789-7, 1987-10, #### [facility] ([id number]) [address] [place] [address] 59182DRGOHZE NURNegativeNormalNEGProGraham Regional Medical CenterComment on above:Performed By: #### MALINI, STEVE, 3040-3, 63540-7, 1987-10, #### [facility] ([id number]) [address] [place] [address] 13134RPCQAFTH GRAVITY AUDREY<=1.232Hcgwqg7.003-1.035Pro[facility] Vacavalley HospitalComment on above:Performed By: #### ARACELISChi, STVEE, 3040-3, 15528-8, 1987-10, #### [facility] ([id number]) [address] [facility], [place], [place] [address]WNULHENNGTIJ NUR0.2 eu/dLNormal<1.1[facility] Comment on above:Performed By: #### ARACELISA, CMP, 3040-3, 24996-1, 1987-10, #### [facility] ([id number]) [address] [facility], [place], [place] [address]AQ Note-Physicianon 45-03-5433BF Note-PhysicianED Note-Physician Basic Information Time Seen: Lexy Campos [...] movements. She states she is scheduled to havesurgical repair of the endometrioma by her VIDEO SYSTEM REPAIRER out of [facility] in [place]. Review of Systems A 10 point review [...] requesting Dilaudid. An OARRS report is ran showingthe patient has an extensive history of narcotic prescriptions. Patient has been seen in the ED 3 times within the past 8 days with the same complaints. I discussed with the patient the emergency department does not manage chronic pain. Patient will follow-up with her VIDEO SYSTEM REPAIRER for further management of care. She was [...] Information XXXX NONE In 3 days 08/13/2024 EST [place] Additional Instructions: Call to schedule a follow-up appointment with your surgeon for further management of care. Return to the ED with any new or worsening symptoms. Rose Royal In 3 days 08/13/2024 EST [address], [address] [place] [address]- Business (1) Additional Instructions: Patient Education Chronic Pain, Adult Attestation Patient seen and evaluated by the physician program assistant. Attending physician was present in the emergency department and supervised care. This visit was performed by both the physician and an APC. I performed all aspects of the MDM as documented. This report was transcribed using voice recognition software. Every effort was made to ensure accuracy, however, inadvertently computerized snapper on mistakes may be present. I performed a substantive part of the MDM during the patient???s E/M visit. I personally made or approved the documented management plan and acknowledge its risk of complications (more content not included)...[facility]carawas HospitalComment on above:Result Comment: Electronically Signed By: Lexy Campos PA-C\.br\Date and Time Signed: 08/10/2521:53 EST\.br\Electronically Co- Signed By: Jignesh Dumont DO\.br\Date and Time Co-Signed: 08/11/2499:10 ESTBMP on 39-66-6115Kqxkv gap [Moles/Vol]12 mmol/LNormal6-16[facility] Comment on above:Performed By: #### [id number] #### [facility] [address], [place] [address]Ovgmiqj [Mass/Vol]9.7 mg/dLNormal8.9-11.1FWVUMedicine Barnesville HospitalComment on above:Performed By: #### [id number] #### [facility] [address], [place] [address]Tbqthrba [Moles/Vol]105 mmol/WRdamgh900-367KqywlsSheltering Arms HospitalComment on above:Performed By: #### [id number] #### [facility] [address], [place] [address]OK0 [Moles/Vol]24 mmol/PGgzkmy48-13EjfakySheltering Arms Hospital Comment on above:Performed By: #### [id number] #### [facility] [address], [place] [address]Dtimnmiesc [Mass/Vol]0.7 mg/dLNormal0.5-1.3FWVUMedicine Barnesville HospitalComment on above:Performed By: #### [id number] #### [facility] [address], [place] [address]Hmedptf [Mass/Vol]107 mg/gWLozrzz12-069XsnlwjSheltering Arms HospitalComment on above:Performed By: #### [id number] #### [facility] [address], [place] [address]Kemqgxonj [Moles/Vol]3.5 mmol/LNormal3.5-5.3FWVUMedicine Barnesville HospitalComment on above:Performed By: #### [id number] #### [facility] [address], [place] [address]Gdshcb [Moles/Vol]137 mmol/THqrqnw225-547JvyuzySheltering Arms HospitalComment on above:Performed By: #### [id number] #### [facility] [address], [place] [address]Ojhp nitrogen [Mass/Vol]7 mg/dLNormal5-21[facility] HospitalComment on above:Performed By: #### [id number] #### [facility] [address], [place] [address]Cfpg nitrogen/Creatinine [Mass ratio]10 No MibtjTfrrba17-25 [facility] HospitalComment on above:Performed By: #### [id number] #### [facility] [address], [place] [address]NLV w/ Auto Diffon 62-73-0317Tvyygkfip/100 WBC (Bld)2.5 %High 0.0-2.0[facility] HospitalComment on above:Performed By: #### [id number] #### [facility] [address] [place] [address] 34884Noybftrbm/Leukocytes Auto (Bld) [Pure # fraction]0.2 E9/LNormal 0.0-0.2FWVUMedicine Barnesville HospitalComment on above:Performed By: #### [id number] #### [facility] [address] [place] [address] 06285Xyznhkrsexn (Bld) [#/Vol]0.0 E9/LNormal0.0-0.5FWVUMedicine Barnesville HospitalComment on above:Performed By: #### [id number] #### [facility] [address] [place] [address] 46223Kmymzbyfbnu/100 WBC (Bld)0.4 %Normal0.0-8.0[facility] HospitalComment on above:Performed By: #### [id number] #### [facility] [address] [place] [address] 95856Trbljfaxspv distribution width (RBC) [Ratio]20.3 %High10.9-14.2 [facility] HospitalComment on above:Performed By: #### [id number] #### [facility] [address] [place] [address] 27291Xslpqvftsh (Bld) [Volume fraction]35.2 %Zmqixf97.0-46.0[facility] HospitalComment on above:Performed By: #### [id number] #### [facility] [address] [place] [address] 32020Idcrsdsmin (Bld) [Mass/Vol]11.3 g/dLLow12.0-16.0[facility] HospitalComment on above:Performed By: #### [id number] #### [facility] [address] [place] [address] [id number] (Bld) [#/Vol]1.0 E9/LNormal1.0-4.0[facility] HospitalComment on above:Performed By: #### [id number] #### [facility] [address] [place] [address] [id number]/100 WBC (Bld)12.8 %Low14.0-50.0[facility] HospitalComment on above:Performed By: #### [id number] #### [facility] [address] [place] [address] [id number] (RBC) [Entitic mass]24.0 pgLow27.0-34.0[facility] HospitalComment on above:Performed By: #### [id number] #### [facility] [address] [place] [address] 09586MKQH (RBC) [Mass/Vol]32.2 g/iGYjisku38.4-36.0[facility] HospitalComment on above:Performed By: #### [id number] #### [facility] [address] [place] [address] [id number] (RBC) [Entitic vol]74.5 fLLow80.0-100.0[facility] HospitalComment on above:Performed By: #### [id number] #### [facility] [address] [place] [address] [id number] (Bld) [#/Vol]0.4 E9/LNormal0.2-1.0[facility] HospitalComment on above:Performed By: #### [id number] #### [facility] [address] [place] [address] 08184Tkqqzwylycn (Bld) [#/Vol]5.9 E9/LNormal2.0-7.5FWVUM[facility] HospitalComment on above:Performed By: #### [id number] #### [facility] [address] [place] [address] [id number]/100 WBC (Bld)78.8 %High36.0-75.0[facility] HospitalComment on above:Performed By: #### [id number] #### [facility] [address], [place] [address]Vtrdavup mean volume (Bld) [Entitic vol]7.6 fLNormal6.4-10.8 [facility] HospitalComment on above:Performed By: #### [id number] #### [facility] [address], [place] [address]Vvrvlqdmm (Bld) [#/Vol]563.0 E9/NYcwu643.0-500.0[facility] HospitalComment on above:Performed By: #### [id number] #### [facility] [address], [place] [address]OUX (Bld) [#/Vol]4.7 E12/LNormal4.3-5.9[facility] HospitalComment on above:Performed By: #### [id number] #### [facility] [address] [place] [address] [id number] corrected for nucl RBC Auto (Bld) [#/Vol]7.5 E9/LNormal 4.0-11.0[facility] HospitalComment on above:Performed By: #### [id number] #### [facility] Laboratory [address] [place] [address] [id number] By: SYSTEM SYSTEM on 37-97-0150Fqqqkgl [Mass/Vol]4.5 g/dLNormal3.3 - 5.0 gm/dLRemisol ChemAlbumin/Globulin [Mass ratio] 1.4 {ratio}Normal1.1 - 2.2Remisol ChemALP [Catalytic activity/Vol]61 [iU]/d Hhpmtv97 - 98 Int._Unit/LRemisol ChemALT No additional P-5'-P [Catalytic activity/Vol]16 [iU]/dNormal6 - 46 Int._Unit/LRemisol ChemAnion gap [Moles/Vol] 12 mmol/LNormal6 - 16 mEq/LRemisol ChemAST [Catalytic activity/Vol]14 [iU]/d Normal5 - 43 Int._Unit/LRemisol ChemBilirubin [Mass/Vol]0.5 mg/dLNormal0.0 - 1.1 mg/dLRemisol ChemBilirubin.direct [Mass/Vol]0.1 mg/dLNormal0.0 - 0.4 mg/dL Remisol ChemBilirubin.indirect [Mass or moles/Vol]0.4 mg/dLNormal0.1 - 0.9 mg/dL Remisol ChemCalcium [Mass/Vol]9.7 mg/dLNormal8.9 - 11.1 mg/dLRemisol Chem Chloride [Moles/Vol]105 mmol/OPtmkzm698 - 111 mmol/LRemisol ChemCO2 [Moles/Vol] 24 mmol/XNvgxej44 - 31 mmol/LRemisol ChemCreatinine [Mass/Vol]0.7 mg/dLNormal0.5 - 1.3 mg/dLRemisol YnwfnSNT376 mL/min/1.73 x4Grfduu>=59mL/min/1.73 k5Sucxrsp ChemGlobulin (S) [Mass/Vol]3.3 g/dLNormal1.4 - 4.0 gm/dLRemisol ChemGlucose [Mass/Vol]107 mg/dNIzukdj28 - 199 mg/dLRemisol ChemLipase [Catalytic activity/Vol]38 U/XSxogtn11 - 58 unit/LRemisol ChemPotassium [Moles/Vol]3.5 mmol/LNormal3.5 - 5.3 mmol/LRemisol ChemProtein [Mass/Vol]7.8 g/dLNormal6.0 - 7.8 gm/dLRemisol ChemSodium [Moles/Vol]137 mmol/DLexokv763 - 145 mmol/LRemisol ChemUrea nitrogen [Mass/Vol]7 mg/dLNormal5 - 21 mg/dLRemisol ChemUrea nitrogen/Creatinine [Mass ratio]10 mg/yjAjidng20 - 20Remisol ChemED Clinical Summaryon [id number] Clinical SummaryED Clinical Summary [address] [address] ED Clinical Summary Person Information Name: ANTONIA NOYOLA Andrea/[facility] Age: 39 Years : 1985 Sex: Female Language: Senegalese PCP: NONE, XXXX Marital Status: Visit Id: [...] 22:42:16 08/10/2024 22:42:16 08/10/2024 22:42:16 ADDRESS: [address] [place] [id number] [facility] DOC NOTES: MEDICAL INFORMATION: Prescriptions Given: Medications to Continue with No Changes Other Medications diflunisal (diflunisal 500 mg Tab) 1 Tablets By Mouth every 12 hours. Refills: 0. PATIENT EDUCATION INFORMATION: Instructions: Chronic Pain, Adult Follow up: With: Address: When: Rose Royal [address] [place] [address], [facility] [address], [place] [address] Business (1) In 3 days 08/13/2024 With: Address: When: XXXX [facility] , [place] In 3 days 08/13/2024 Comments: Call to schedule a follow-up appointment with your surgeon for further management of care. Return to the ED with any new or worsening symptoms. DIAGNOSIS: Chronic abdominal pain; Endometrioma; Other chronic painNormalUniversity Hospitals Geauga [facility] Center Patient Summaryon [id number] Patient SummaryED Patient Summary [address], [place] [address] Patient Discharge Instructions Person Information Name: ANTONIA NOYOLA Age: 39 Years Arrival Date: 08/10/2024 19:35:47 Discharge Diagnosis: Chronic abdominal pain; Endometrioma; Other chronic pain Primary Care Physician: NONE, XXXX Provider Information Primary Provider: Jignesh Dumont DO Advanced Judo Instructor:Lexy Campos PA-C The exam and treatment you received in the Emergency Department were for an urgent problem and are not intended as complete care. It is important that you follow up with a doctor, nurse practitioner,or physician???s program assistant for ongoing care. If your symptoms become worse or you do not improve asexpected and you are unable to reach your usual health care provider, you should return to the Emergency Department. We are available 24 hours a day. ANTONIA NOYOLA has been given the following list of patient education materials, prescriptions and follow-up instructions: Follow-up Instructions: With: Address: When: Rose Royal [address] [place] [id number] [facility] (1) In 3 days 08/13/2024 With: Address: When: XXXX [place], [place] In 3 days 08/13/2024 Comments: Call [...] opioids can be used to help relieve yehfstuq-rv-vkfnpj pain and are often prescribed following a [...] the toilet, following guidance from the Food (morecontent not included)...Normal [facility] HospitalHEMATOLOGYOrdered By: SYSTEM SYSTEM on 08-10-2024 Basophils/100 WBC (Bld)2.5 %High0.0 - 2.0 %Remisol HemeBasophils/Leukocytes Auto (Bld) [Pure # fraction]0.2 E9/LNormal0.0 - 0.2 E9/LRemisol HemeEosinophils (Bld) [#/Vol]0.0 E9/LNormal0.0 - 0.5 E9/LRemisol HemeEosinophils/100 WBC (Bld)0.4 % Normal0.0 - 8.0 %Remisol HemeErythrocyte distribution width (RBC) [Ratio]20.3 % High10.9 - 14.2 %Remisol HemeHematocrit (Bld) [Volume fraction]35.2 %Czqlxt75.0 - 46.0 %Remisol HemeHemoglobin (Bld) [Mass/Vol]11.3 g/dLLow12.0 - 16.0 gm/dL Remisol HemeLymphocytes (Bld) [#/Vol]1.0 E9/LNormal1.0 - 4.0 E9/LRemisol Heme Lymphocytes/100 WBC (Bld)12.8 %Low14.0 - 50.0 %Remisol HemeMCH (RBC) [Entitic mass]24.0 pgLow27.0 - 34.0 pgRemisol HemeMCHC (RBC) [Mass/Vol]32.2 g/dLNormal 31.4 - 36.0 gm/dLRemisol HemeMCV (RBC) [Entitic vol]74.5 fLLow80.0 - 100.0 fL Remisol HemeMonocytes (Bld) [#/Vol]0.4 E9/LNormal0.2 - 1.0 E9/LRemisol Heme Monocytes/100 WBC (Bld)5.5 %Normal4.0 - 14.0 %Remisol HemeNeutrophils (Bld) [#/Vol]5.9 E9/LNormal2.0 - 7.5 E9/LRemisol HemeNeutrophils/100 WBC (Bld)78.8 % High36.0 - 75.0 %Remisol HemePlatelet mean volume (Bld) [Entitic vol]7.6 fL Normal6.4 - 10.8 fLRemisol HemePlatelets (Bld) [#/Vol]563.0 E9/GMzia759.0 - 500.0 E9/LRemisol HemeRBC (Bld) [#/Vol]4.7 E12/LNormal4.3 - 5.9 E12/LRemisol HemeWBC corrected for nucl RBC Auto (Bld) [#/Vol]7.5 E9/LNormal4.0 - 11.0 E9/L Remisol HemeHep Func Panelon 29-16-4223Ttvshup [Mass/Vol]4.5 g/dLNormal3.3-5.0 [facility] HospitalComment on above:Performed By: #### [id number] #### [facility] [address] [place] [address]Smtabbg/Globulin (S) [Mass conc ratio]1.7Wnhbdv6.1-2.2FWVUMedicine Barnesville HospitalComment on above:Performed By: #### [id number] #### [facility] [address] [place] [address]BIM [Catalytic activity/Vol]61 Int._Unit/OCcexyb28-37AsqahvSheltering Arms HospitalComment on above:Performed By: #### [id number] #### [facility] [address], [place] [address]QGI No additional P-5'-P [Catalytic activity/Vol]16 Int._Unit/L Normal6-46S[facility] HospitalComment on above:Performed By: #### [id number] #### [facility] [address], [place] [address]STZ [Catalytic activity/Vol]14 Int._Unit/LNormal5-43S[facility] HospitalComment on above:Performed By: #### [id number] #### [facility] [address], [place] [address]Ikuszvtco [Mass/Vol]0.5 mg/dLNormal0.0-1.1FWVUMedicine Barnesville HospitalComment on above:Performed By: #### [id number] #### [facility] [address], [place] [address]Grrmtcgpu.direct [Mass/Vol]0.1 mg/dLNormal0.0-0.4FWVUMedicine Barnesville HospitalComment on above:Performed By: #### [id number] #### [facility] [address], [place] [address]Zekxfbyjt.indirect [Mass or moles/Vol]0.4 mg/dLNormal0.1-0.9 [facility] HospitalComment on above:Performed By: #### [id number] #### [facility] [address], [place] [address]Lgxihxla (S) [Mass/Vol]3.3 g/dLNormal1.4-4.0S[facility] Arms HospitalComment on above:Performed By: #### [id number] #### [facility] [address], [place] [address]Luxxtjh [Mass/Vol]7.8 g/dLNormal6.0-7.8S[facility] HospitalComment on above:Performed By: #### [id number] #### [facility] [address], [place] [address]Cgquki Levelon 10-04-9757Caclww [Catalytic activity/Vol]38 U/L Cejdlb86-40PpgwjwSheltering Arms HospitalComment on above:Performed By: #### [id number] #### [facility] [address], [place] [address]RX with Cult Rflxon 40-97-9251Gxbzyyhjd Ql (U)NegativeNormal NegativeSheltering Arms HospitalComment on above:Performed By: #### [id number] #### [facility] [address], [place] [address]Eliovjd (U)ClearNormalClearSheltering Arms HospitalComment on above:Performed By: #### [id number] #### [facility] [address], [place] [address]Ettbx (U)ColorlessAbnormalYellowSheltering Arms Hospital Comment on above:Result Comment: Microscopic readings are only performed on those samples that meet specific criteria set forth by [facility].Performed By: #### [id number] #### [facility] [address], [place] [address]Kzqaylq Ql (U)NegativeNormalNegativeSheltering Arms Hospital Comment on above:Performed By: #### [id number] #### [facility] [address], [place] [address]Pzgbsxlnck Auto test strip (U) [Mass/Vol]NegativeNormalNegative [facility] HospitalComment on above:Performed By: #### [id number] #### [facility] [address], [place] [address]Zucoibe Auto test strip Ql (U)NegativeNormalNegativeSheltering Arms HospitalComment on above:Performed By: #### [id number] #### [facility] [address], [place] [address]Fgcxxyhfg esterase Auto test strip Ql (U)NegativeNormalNegative [facility] HospitalComment on above:Performed By: #### [id number] #### [facility] [address], [place] [address]Mlybflk Auto test strip Ql (U)NegativeNormalNegativeSheltering Arms HospitalComment on above:Performed By: #### [id number] #### [facility] [address], [place] [address]jN (U)7.5 [pH]Invalid Interpretation Code5.0-9.0S[facility] HospitalComment on above:Performed By: #### [id number] #### [facility] [address], [place] [address]Qooishs Ql (U)NegativeNormalNegRegency Hospital Cleveland West Comment on above:Performed By: #### [id number] #### [facility] [address], [place] [address]Dhvsrwly gravity (U) [Rel density]1.005Invalid Interpretation Code1.005-1.030S[facility] Arms HospitalComment on above:Performed By: #### [id number] #### [facility] [address], [place] [address]Gqlsbcihmbod (U) [Mass/Vol]NegativeNormalNegativeSheltering Arms HospitalComment on above:Performed By: #### [id number] #### [facility] [address], [place] [address]Fyep of Urine collection methodClean [facility] Cleveland VA Medical CenterComment on above:Performed By: #### [id number] #### [facility] [address] [place] [address]GHPRYOXTNLNsosopq By: SYSTEM SYSTEM on 10-42-9604Lmfpnjywf Ql (U)NegativeNormalNegativemg/dLFT UA Auto SSClarity (U)Clear (08/10/24 8:58 PM)NormalClearFTMC UA Auto SSColor (U)Colorless 1 *ABN* (08/10/24 8:58 PM)Invalid Interpretation CodeYellowFAIRFAX COMMUNITY HOSPITAL – [facility] UA Auto SSComment on above:Interpretive Data: Microscopic readings are only performed on those samples that meet specific criteria set forth by [facility].Glucose Ql (U)NegativeNormalNegativemg/dLFT UA Auto SSHemoglobin Auto test strip (U) [Mass/Vol]NegativeNormalNegativemg/dLFT UA Auto SSKetones Auto test strip Ql (U)NegativeNormalNegativemg/dLFT UA Auto SSLeukocyte esterase Auto test strip Ql (U)NegativeNormalNegativeLeu/uLFT UA Auto SS Nitrite Auto test strip Ql (U)NegativeNormalNegativemg/dLFT UA Auto SSpH (U) 7.5 *NA* (08/10/24 8:58 PM)Invalid Interpretation Code5.0 - 9.0[facility] UA Auto SSProtein Ql (U)NegativeNormalNegativemg/dLFAIRFAX COMMUNITY HOSPITAL – [facility]IR[facility] UA Auto SSSpecific gravity (U) [Rel density] 1.005 *NA* (08/10/24 8:58 PM)Invalid Interpretation Code1.005 - 1.030[facility] UA Auto SS Urobilinogen (U) [Mass/Vol]NegativeNormalNegativemg/dLFAIRFAX COMMUNITY HOSPITAL – [facility] UA Auto SSURINALYSIS Ordered By: Lexy Campos on 66-78-9680BV Spec DescClean Catch (08/10/24 8:58 PM)NormalFAIRFAX COMMUNITY HOSPITAL – [facility]IR[facility] UA Auto SS eGFRon 27-61-4417lKLA118 mL/min/1.73 y0Yhduue>=59Fisher [facility] [place] [facility] Medical CenterComment on above:Performed By: #### [id number] #### [facility] Laboratory [address], [place] [address]II Note-Physicianon 34-21-9834WY Note-PhysicianED Note-Physician Basic Information Time Seen: Juwan SCOTT, Benjy Robles 08/05/2024 18:06 Chief Complaint pt seen multiple times for abd pain. was seen in ed earlier and sent home. states oxy and toradol with no pain releif. History of Present Illness 39-year-old female reports to the emergency department for abdominal pain. Reports he was seen hereearlier, given Percocet as well as Toradol, but still having pain. Reports history of endometrioma of her abdomen. Trying follow-up with pain management as well as her VIDEO SYSTEM REPAIRER at [facility] in [place]. She denies any relief in her pain. Denies any new symptoms. Reports is currently been going on for months. Review of Systems No other aggravating or relieving factors no other associated symptoms no other prior treatments orcomplaints. Family: Reviewed and noncontributory Social: lives at [...] of Problems Differential Diagnosis: [] [facility] Data External documents reviewed: [] My EKG interpretation: [] My CT interpretation: [] My X-ray interpretation: [] My Ultrasound interpretation: [] Decision rules/scores evaluated: [] Discussed with: [] Treatment and Disposition ED Course: 39-year-old female reports emerged department with chronic abdominal pain. Has a historyof endometrioma. She was seen earlier today, given Percocet as well as Toradol. I discussed ultimately she needs to have follow-up with her VIDEO SYSTEM REPAIRER for likely surgery if is causing this much pain. Abdomen is soft with no rebound tenderness or guarding noted. No acute distress. She was requesting a IM shot. I discussed that Percocet is going to give at home, and I did give her a to go pack, and discussed that she needs a follow-up with either pain management or an VIDEO SYSTEM REPAIRER for chronic pain. Follow-up with your primary [...] chronic pain (G89.29: Other chronic pain) Orders: acetaminophen-oxycodone, 1 EA, Tab, Oral, Once, Stop date 08/05/24 19:17:00 EST, STAT, Start date 08/05/24 19:17:00 EST Medications Administered Given TO GO acetaminophen-oxycodone 325 mg - 5 mg, 1 EA, Oral Disposition Plan Patient Discharge Condition Stable Discharge Disposition To home Discharge Prescription List Prescriptions No active prescription medications Follow-up With When Contact Information Pain Clinic: [facility] [phone] In 3 days 08/08/2024 EST Additional Instructions: Call for diagnosis based follow up Savannah Petersen In 3 days 08/08/[address] [place] [address] [facility] (1) Additional Instructions: Call Dr for diagnosis based follow up Patient Education Abdominal Pain, Adult, Iori-jt-Kjhq Attestation Patient seen and evaluated by the physician program assistant. Attending physician was present in the emergency department and supervised care. This visit was performed by both the physician and an APC. I performed all aspects of the MDM as documented. This report was transcribed using voice recognition software. Every effort was made to ensure accuracy, however, inadvertently computerized snapper on mistakes may be present. Appropriate healthcare PPE [...] (EKG/X-Ray/US/CT as applicable) interpretation as abo (more contentnot included)...[facility]carawas HospitalComment on above:Result Comment: Electronically Signed By: Benjy Echeverria PA-C\.br\Date and Time Signed: 08/05/2520:50 EST\.br\Electronically Co-Signed By: Dimitri Vuong MD\.br\Date and Time Co-Signed: 08/07/24 08:44 ESTED Note-PhysicianED Note-Physician Basic Information Time Seen: Sean Frazier PA-C 08/05/2024 11:20 Chief Complaint pt reports r lower abd pain, states has hx of this pain. was seen a few days ago. pain is persisting and also has some nausea but no vomiting. History of Present Illness 39-year female comes to the ED for evaluation abdominal pain. This is a longstanding issue for thispatient. She has chronic right side abdominal pain with her known endometrioma pelvic mask. She follows with VIDEO SYSTEM REPAIRER out of [place]. She was seen here couple of days [...] made to ensure accuracy, however, inadvertently computerized snapper on mistakes may be present. Appropriate healthcare PPE [...] data available. Diagnostic Results No qualifying data available.[facility]carawas HospitalComment on above: Result Comment: Electronically Signed By: Sean Frazier PA-C\.br\Date and Time Signed: 08/05/2510:55 EST\.br\Electronically Co-Signed By: Dimitri Vuong MD\.br\Date and Time Co-Signed: 08/07/24 08:25 HUMBERTO Clinical Summaryon [id number] Clinical SummaryED Clinical Summary [address] [address] ED Clinical Summary Person Information Name: ANTONIA NOYOLA/[facility] Age: 39 Years : 1985 Sex: Female Language: Senegalese PCP: NONE, XXXX Marital Status: Visit Id: [...] 08/05/2024 19:29:44 08/05/2024 19:29:44 08/05/2024 19:29:44 ADDRESS: [address] [place] [address] [address] [place] [id number] [facility] DOC NOTES: MEDICAL INFORMATION: Prescriptions Given: Medications to Continue with No Changes Other Medications diflunisal (diflunisal 500 mg Tab) 1 Tablets By Mouth every 12 hours. Refills: 0. PATIENT EDUCATION INFORMATION: Instructions: Abdominal Pain, Adult, Ompe-rx-Xigd Follow up: With: Address: When: Pain Clinic: [facility] [phone] In 3 days 08/08/2024 Comments: Call for diagnosis based follow up With: Address: When: Savannah Petersen [address] [place], [place] [id number] [facility] () In 3 days 08/08/2024 Comments: Call for diagnosis based follow up DIAGNOSIS: Chronic abdominal pain; Endometrioma; Other chronic painNormalFisher [facility] Clinical SummaryED Clinical Summary [address] [address] ED Clinical Summary Person Information Name: ANTONIA NOYOLA/Mariano_Kishore Age: 39 Years : 1985 Sex: Female Language: Senegalese PCP: NONE, XXXX Marital Status: Visit Id: [...] 08/05/2024 11:45:03 ADDRESS: [address] [place] [id number] PHYS DOC NOTES: MEDICAL INFORMATION: Prescriptions Given: [...] Follow up: With: Address: When: XXXX [place] In 3 days 08/08/2024 Comments: Follow-up with your OBGYN surgeon DIAGNOSIS: Chronic abdominal pain; Endometrioma; Other chronic painNormalUniversity Hospitals [facility] Patient Summaryon [id number] Patient SummaryED Patient Summary [place] [id number] Patient Discharge Instructions Person Information Name: ANTONIA NOYOLA Age: 39 Years Arrival Date: 08/05/2024 18:00:36 Discharge Diagnosis: Chronic abdominal pain; Endometrioma; Other chronic pain Primary Care Physician: NONE, XXXX Provider Information Primary Provider: Advanced Judo Instructor:Benjy Echeverria PA-C The exam and treatment you received in the Emergency Department were for an urgent problem and are not intended as complete care. It is important that you follow up with a doctor, nurse practitioner,or physician???s program assistant for ongoing care. If your symptoms become worse or you do not improve asexpected and you are unable to reach your usual health care provider, you should return to the Emergency Department. We are available 24 hours a day. ANTONIA NOYOLA has been given the following list of patient education materials, prescriptions and follow-up instructions: Follow-up Instructions: With: Address: When: Pain Clinic: [facility] [phone] In 3 days 08/08/2024 Comments: Call Dr for diagnosis based follow up With: Address: When: Savannah Petesren [address] [place] [address] Business (1) In 3 days 08/08/2024 Comments: Call Dr for diagnosis based follow up In the event that this physician does not participate in your insurance network, please consult with your insurance company to find a nearby participating provider. Patient Education Materials: Abdominal Pain, Adult, Vnqr-ez-Atty A MESSAGE TO ALL PATIENTS REGARDING OPIOIDS PRESCRIPTION OPIOIDS: WHAT YOU NEED TO KNOW Prescription opioids can be used to help relieve yegcvhvq-mi-clcuiu pain and are often prescribed following a [...] and Drug Administration (www.fda.gov/Drugs/Res (more content not included)...[facility] Patient SummaryED Patient Summary [place] [address] Patient Discharge Instructions Person Information Name: ANTONIA NOYOLA Age: 39 Years Arrival Date: 08/05/2024 11:06:17 Discharge Diagnosis: Chronic abdominal pain; Endometrioma; Other chronic pain Primary Care Physician: NONE, XXXX Provider Information Primary Provider: Dimitri Vuong MD Advanced Judo Instructor:Sean Frazier PA-C The exam and treatment you received in the Emergency Department were for an urgent problem and are not intended as complete care. It is important that you follow up with a doctor, nurse practitioner,or physician???s program assistant for ongoing care. If your symptoms become worse or you do not improve asexpected and you are unable to reach your [...] opioids can be used to help relieve yufqjrar-gx-apdpms pain and are often prescribed following a [...] guidance from the Food and Drug Administration (www.fda.gov/Drugs/ResourcesForYou). ??? Visit www.cdc.gov/drugoverdose to learn about the risks of opioids abuse and overdose. ??? If you believe you may be struggling with addiction, tell your health career consultant and (more content not included)...NormalSheltering Arms Hospital B hCG Qualon 25-93-1543Dzuz HCG ( test) QlNegativeNormalSheltering Arms HospitalComment on above:Performed By: #### [id number] #### [facility] [address], [place] [address]WQJKnxgucz By: SYSTEM SYSTEM on 95-77-7668Opdui gap [Moles/Vol] 14 mmol/LNormal6-16Remisol ChemComment on above:Performed By: #### [id number] #### [facility] [address], [place] [address]Clbpqzz [Mass/Vol]9.8 mg/dLNormal8.9-11.1Remisol ChemComment on above:Performed By: #### [id number] #### [facility] [address], [place] [address]Cprntsko [Moles/Vol]106 mmol/NYgntjo924-447Ucztyqd ChemComment on above:Performed By: #### [id number] #### [facility] [address], [place] [address]LR9 [Moles/Vol]23 mmol/RElnkbj13-60Qynmpgh ChemComment on above:Performed By: #### [id number] #### [facility] [address], [place] [address]Pknwmvxkmf [Mass/Vol]0.7 mg/dLNormal0.5-1.3Remisol ChemComment on above:Performed By: #### [id number] #### [facility] [address], [place] [address]Dhotrmu [Mass/Vol]104 mg/oHAjnxhw98-128Iqklvhl ChemComment on above:Performed By: #### [id number] #### [facility] [address], [place] [address]Livszvlmz [Moles/Vol]3.9 mmol/LNormal3.5-5.3Remisol ChemComment on above:Performed By: #### [id number] #### [facility] [address], [place] [address]Opmlsg [Moles/Vol]139 mmol/MVahdof472-205Qopdveq ChemComment on above:Performed By: #### [id number] #### [facility] [address], [place] [address]Grog nitrogen [Mass/Vol]6 mg/dLNormal5-21Remisol ChemComment on above:Performed By: #### [id number] #### [facility] [address], [place] [address]KHJzv 95-37-5210Liwg nitrogen/Creatinine [Mass ratio]9 No Units Eij79-62Wkecdf [facility] Medical CenterComment on above:Performed By: #### [id number] #### [facility] [address] [place] [address]DTO w/ Auto Diffon 67-66-3036Deeofcovaipy LM Ql (Bld)PRESENT Invalid Interpretation CodeSheltering Arms HospitalComment on above:Performed By: #### [id number] #### [facility] [address] [place] [address]Soyqkofqxhd Auto Ql (Bld)PRESENTInvalid Interpretation Code [facility] HospitalComment on above:Performed By: #### [id number] #### [facility] [address] [place] [address]Zhvasgyclx Ql (Bld)PRESENTInvalid Interpretation CodeSheltering Arms HospitalComment on above:Performed By: #### [id number] #### [facility] [address] [place] [address]CEW size Nom (Bld)SEE MORPHOLOGYInvalid Interpretation Code Sheltering Arms HospitalComment on above:Performed By: #### [id number] #### [facility] [address] [place] [address] 41567AUE w/ Auto DiffOrdered By: SYSTEM SYSTEM on 08-02-2024 Basophils/100 WBC (Bld)1.1 %Normal0.0-2.0Remisol HemeComment on above:Performed By: #### [id number] #### [facility] [address] [place] [address] 17073Hodryhtny/Leukocytes Auto (Bld) [Pure # fraction]0.1 E9/LNormal 0.0-0.2Remisol HemeComment on above:Performed By: #### [id number] #### [facility] [address] [place] [address] 18058Eubirdkkjio (Bld) [#/Vol]0.0 E9/LNormal0.0-0.5Remisol Heme Comment on above:Performed By: #### [id number] #### [facility] [address] [place] [address] 46029Evsapxtdxpj/100 WBC (Bld)0.1 %Normal0.0-8.0Remisol HemeComment on above:Performed By: #### [id number] #### [facility] [address] [place] [address] 03899Oqwkpddhsoe distribution width (RBC) [Ratio]20.3 %High10.9-14.2 Remisol HemeComment on above:Performed By: #### [id number] #### [facility] [address] [place] [address] 28443Nxefnhbccf (Bld) [Volume fraction]37.6 %Hkohdt94.0-46.0Remisol HemeComment on above:Performed By: #### [id number] #### [facility] [address] [place] [address] 48230Ijlknvwroc (Bld) [Mass/Vol]12.2 g/dQSudvhx00.0-16.0Remisol Heme Comment on above:Performed By: #### [id number] #### [facility] [address] [place] [address] 52898Opqcosebhid (Bld) [#/Vol]1.8 E9/LNormal1.0-4.0Remisol Heme Comment on above:Performed By: #### [id number] #### [facility] [address] [place] [address] 43998Gjrhvyzyucg/100 WBC (Bld)27.3 %Vsqxoq48.0-50.0Remisol Heme Comment on above:Performed By: #### [id number] #### [facility] [address] [place] [address] 95539NZE (RBC) [Entitic mass]23.8 pgLow27.0-34.0Remisol HemeComment on above:Performed By: #### [id number] #### [facility] [address] [place] [address] 07464DDSA (RBC) [Mass/Vol]32.4 g/qJVztxcz96.4-36.0Remisol Heme Comment on above:Performed By: #### [id number] #### [facility] [address] [place] [address] 69415SRV (RBC) [Entitic vol]73.5 fLLow80.0-100.0Remisol HemeComment on above:Performed By: #### [id number] #### [facility] [address] [place] [address] 68359Uqnbtomsd (Bld) [#/Vol]0.3 E9/LNormal0.2-1.0Remisol HemeComment on above:Performed By: #### [id number] #### [facility] [address] [place] [address] 76194Ylldyolxxfy (Bld) [#/Vol]4.3 E9/LNormal2.0-7.5Remisol Heme Comment on above:Performed By: #### [id number] #### [facility] [address] [place] [address] 29792Hwxidakouvn/100 WBC (Bld)66.7 %Scfxxc31.0-75.0Remisol Heme Comment on above:Performed By: #### [id number] #### [facility] [address] [place] [address] 70096Srkbxdfy mean volume (Bld) [Entitic vol]7.4 fLNormal6.4-10.8 Remisol HemeComment on above:Performed By: #### [id number] #### [facility] [address] [place] [address] 40295Lbavhmkwz (Bld) [#/Vol]452.0 E9/OBfuhvh880.0-500.0Remisol Heme Comment on above:Performed By: #### [id number] #### [facility] [address] [place] [address] 58224LNT (Bld) [#/Vol]5.1 E12/LNormal4.3-5.9Remisol HemeComment on above:Performed By: #### [id number] #### [facility] [address] [place] [address] 64424VKW corrected for nucl RBC Auto (Bld) [#/Vol]6.4 E9/LNormal 4.0-11.0Remisol HemeComment on above:Performed By: #### [id number] #### [facility] [address] [place], [place] [address]RYECYRHVXWuarhuh By: SYSTEM SYSTEM on 08-02-2024 Albumin/Globulin [Mass ratio]1.3 {ratio}Normal1.1 - 2.2Remisol ChemALP [Catalytic activity/Vol]71 [iU]/aBdgfbe88 - 98 Int._Unit/LRemisol ChemALT No additional P-5'-P [Catalytic activity/Vol]9 [iU]/dNormal6 - 46 Int._Unit/L Remisol ChemAST [Catalytic activity/Vol]12 [iU]/dNormal5 - 43 Int._Unit/LRemisol ChemUrea nitrogen/Creatinine [Mass ratio]9 mg/mgLow10 - 20Remisol ChemCT Abdomen/Pelvis w/ Contraston 38-86-8222NQ Abdomen/Pelvis w/ ContrastExam Date/Time: 08/02/2024 17:17 EST Reason for Exam: [...] Harvey Leslie MD Transcribed by: MILLIE Technologist: Michael [facility] Clinical Summaryon [id number] Clinical SummaryED Clinical Summary [place] [id number] ED Clinical Summary Person Information Name: [facility] Age: 39 Years : 1985 Sex: Female Language: Senegalese PCP: NONE, XXXX Marital Status: Visit Id: [...] 08/02/2024 19:06:33 ADDRESS: [address] [place] [id number] PHYS DOC NOTES: MEDICAL INFORMATION: Prescriptions Given: [...] When: Make sure to follow-up with your PRODUCT DEVELOPMENT CARPENTER at [facility]. Return to the emergency room if your pain gets worse or any new symptoms. In 3 days 08/05/2024 DIAGNOSIS: 1:Abdominal pain; 2:Pelvic massNormalFisher Chris Medical CenterED Note-Physicianon [id number] Note-PhysicianED Note-Physician Basic Information Time Seen: Neha Hannah [...] She did have hysterectomy and oophorectomy at [facility]. The patient states on May she had ultrasound of her pelvis which showed a cystic mass on the right pelvic area which possible was endometrioma, seroma or possible abscess. The patient states that she is scheduled for another surgery at [facility] for the mass. She is in [place] uzpgnq-gwl-gmuua. The patient states for past 3 days [...] of Problems Differential Diagnosis: [] [facility] Data External documents reviewed: [] My [...] mass. She has an appointment with her PRODUCT DEVELOPMENT CARPENTER in [facility]. The patient was given Zofran and Dilaudid for pain and her pain improved. Will discharge patienthome follow-up with her PRODUCT DEVELOPMENT CARPENTER. She is instructed to return to the [...] Information Make sure to follow-up with your PRODUCT DEVELOPMENT CARPENTER at [facility]. Return to the emergency room if [...] Low Risk, 04/24/2023 Cu (more content not included)...[facility]carawas HospitalComment on above:Result Comment: Electronically Signed By: Neha Hannah M.D.\.br\Date and Time Signed: 08/02/2517:41 ESTED Patient Summaryon [id number] Patient SummaryED Patient Summary [address] [address] Patient Discharge Instructions Person Information Name: ANTONIA NOYOLA Age: 39 Years Arrival Date: 08/02/2024 14:41:13 Discharge Diagnosis: 1:Abdominal pain; 2:Pelvic mass Primary Care Physician: NONE, XXXX Provider Information Primary Provider: Neha Hannah M.D. Advanced Judo Instructor:None The exam and treatment you received in the Emergency Department were for an urgent problem and are not intended as complete care. It is important that you follow up with a doctor, nurse practitioner,or physician???s program assistant for ongoing care. If your symptoms become worse or you do not improve asexpected and you are unable to reach your usual health care provider, you should return to the Emergency Department. We are available 24 hours a day. ANTONIA NOYOLA has been given the following list of patient education materials, prescriptions and follow-up instructions: Follow-up Instructions: With: Address: When: Make sure to follow-up with your PRODUCT DEVELOPMENT CARPENTER at [facility]. Return to the emergency room if [...] opioids can be used to help relieve atdowpza-sw-zfrrau pain and are often prescribed following a [...] guidance from the Food and Drug Administration (www.fda.gov/Drugs/ResourcesForYou). ??? Visit www.cdc.gov/drugoverdose to learn about the risks of opioids abuse and overdose. ??? If you believe you may be struggl (more content not included)...[facility]awas HospitalJoselyn Tapia 17-73-9322Pbrd Collected PlasmaYesInvalid Interpretation [facility] HospitalComment on above:Performed By: #### [id number] #### [facility] [address], [place] [address]XXMBGIXRVHIpmcfee By: SYSTEM SYSTEM on 76-85-9708Rktajiyfgabw LM Ql (Bld)PRESENT *NA* (08/02/24 4:00 PM)Invalid Interpretation CodeRemisol HemeHypochromia Auto Ql (Bld)PRESENT *NA* (08/02/24 4:00 PM)Invalid Interpretation CodeRemisol HemeMicrocytes Ql (Bld) PRESENT *NA* (08/02/24 4:00 PM)Invalid Interpretation CodeRemisol HemeMonocytes/100 WBC (Bld) 4.8 %Normal4.0 - 14.0 %Remisol HemeRBC size Nom (Bld)SEE MORPHOLOGY *NA* (08/02/24 4:00 PM)Invalid Interpretation CodeRemisol HemeHep Func PanelOrdered By: SYSTEM SYSTEM on 01-20-7371Tziribg [Mass/Vol]4.8 g/dLNormal3.3-5.0Remisol ChemComment on above:Performed By: #### [id number] #### [facility] [address], [place] [address]Dsnnukgxs [Mass/Vol]0.5 mg/dLNormal0.0-1.1Remisol ChemComment on above:Performed By: #### [id number] #### [facility] [address], [place] [address]Vcstajuhb.direct [Mass/Vol]0.1 mg/dLNormal0.0-0.4Remisol Chem Comment on above:Performed By: #### [id number] #### [facility] [address], [place] [address]Btdhrhiso.indirect [Mass or moles/Vol]0.4 mg/dLNormal0.1-0.9 Remisol ChemComment on above:Performed By: #### [id number] #### [facility] [address], [place] [address]Eekckmxn (S) [Mass/Vol]3.6 g/dLNormal1.4-4.0Remisol ChemComment on above:Performed By: #### [id number] #### [facility] [address], [place] [address]Gvisvpj [Mass/Vol]8.4 g/dLHigh6.0-7.8Remisol ChemComment on above:Performed By: #### [id number] #### [facility] [address] [place] [address] 47484Pzi Func Panelon 29-91-0530Wyfmdcy/Globulin (S) [Mass conc ratio]1.3Kddzem1.1-2.2[facility] Medical CenterComment on above:Performed By: #### [id number] #### [facility] [address] [place] [address] 33469RPS [Catalytic activity/Vol]71 Int._Unit/EEkgzym55-66YygmzoSheltering Arms HospitalComment on above:Performed By: #### [id number] #### [facility] [address] [place] [address] 02114YJT No additional P-5'-P [Catalytic activity/Vol]9 Int._Unit/L Normal6-46S[facility] Arms HospitalComment on above:Performed By: #### [id number] #### [facility] [address] [place] [address] 41190DVK [Catalytic activity/Vol]12 Int._Unit/LNormal5-43[facility] HospitalComment on above:Performed By: #### [id number] #### [facility] [address] [place] [address] 687[address]Isdjfd LevelOrdered By: SYSTEM SYSTEM on 77-51-6706Sgxiii [Catalytic activity/Vol]41 U/TTdmtuv71-06Phlsjeu ChemComment on above:Performed By: #### [id number] #### [facility] [address] [place] [address] 65798TRJJBUUNMedldpr By: Brooke Méndez on 67-45-6963Knaf HCG ( test) QlNegative (08/02/24 4:00 PM)NormalFAIRFAX COMMUNITY [facility] – [facility]IR[facility] Man SeroUA with Cult Rflxon 13-88-2503Vkcqnyhwq Ql (U)NegativeNormalNegativeSheltering Arms HospitalComment on above:Performed By: #### [id number] #### [facility] [address], [place] [address]Ebrucca (U)ClearNormalClearSheltering Arms HospitalComment on above:Performed By: #### [id number] #### [facility] [address], [place] [address]Mqqmc (U)ColorlessAbnormalYellowSheltering Arms Hospital Comment on above:Result Comment: Microscopic readings are only performed on those samples that meet specific criteria set forth by [facility].Performed By: #### [id number] #### [facility] [address], [place] [address]Nzhptcz Ql (U)NegativeNormalNegRegency Hospital Cleveland West Comment on above:Performed By: #### [id number] #### [facility] [address], [place] [address]Xfsdhkcnae Auto test strip (U) [Mass/Vol]NegativeNormalNegative [facility] HospitalComment on above:Performed By: #### [id number] #### [facility] [address], [place] [address]Ruyqsny Auto test strip Ql (U)NegativeNormalNegativeSheltering Arms HospitalComment on above:Performed By: #### [id number] #### [facility] [address], [place] [address]Yptuexkjz esterase Auto test strip Ql (U)NegativeNormalNegative [facility] HospitalComment on above:Performed By: #### [id number] #### [facility] [address], [place] [address]Zukcxsm Auto test strip Ql (U)NegativeNormalNegativeSheltering Arms HospitalComment on above:Performed By: #### [id number] #### [facility] [address], [place] [address]vW (U)7.5 [pH]Invalid Interpretation Code5.0-9.0S[facility] Arms HospitalComment on above:Performed By: #### [id number] #### [facility] [address] [place] [address]65[address]Pcjfwtk Ql (U)NegativeNormalNegativeSheltering Arms Hospital Comment on above:Performed By: #### [id number] #### [facility] [address] [place] [address] 06689Mavbxzml gravity (U) [Rel density]1.007Invalid Interpretation Code1.005-1.030S[facility]tering Arms HospitalComment on above:Performed By: #### [id number] #### [facility] [address] [place] [address] 829[address]Awbjxcuveezr (U) [Mass/Vol]NegativeNormalNegRegency Hospital Cleveland WestComment on above:Performed By: #### [id number] #### [facility] [address] [place] [address] 85446Pzwe of Urine collection methodClean CatchNoKettering Health – Soin Medical CenterComment on above:Performed By: #### [id number] #### [facility] [address] [place] [address] 51015HPVBWNXINCMimqzxa By: SYSTEM SYSTEM on 70-19-7296Ykthgkohf Ql (U)NegativeNormalNegativemg/dLFT UA Auto SSClarity (U)Clear (08/02/24 4:31 PM)NormalClearFTMC UA Auto SSColor (U)Colorless 1 *ABN* (08/02/24 4:31 PM)Invalid Interpretation CodeYellowFT UA Auto SSComment on above:Interpretive Data: Microscopic readings are only performed on those samples that meet specific criteria set forth by [facility].Glucose Ql (U)NegativeNormalNegativemg/dLFT UA Auto SSHemoglobin Auto test strip (U) [Mass/Vol]NegativeNormalNegativemg/dLFT UA Auto SSKetones Auto test strip Ql (U)NegativeNormalNegativemg/dLFT UA Auto SSLeukocyte esterase Auto test strip Ql (U)NegativeNormalNegativeLeu/uLFAIRFAX COMMUNITY HOSPITAL – [facility] UA Auto SS Nitrite Auto test strip Ql (U)NegativeNormalNegativemg/dLFAIRFAX COMMUNITY HOSPITAL – [facility] UA Auto SSpH (U) 7.5 *NA* (08/02/24 4:31 PM)Invalid Interpretation Code5.0 - 9.0[facility] UA Auto SSProtein Ql (U)NegativeNormalNegativemg/dLFAIRFAX COMMUNITY HOSPITAL – [facility] UA Auto SSSpecific gravity (U) [Rel density] 1.007 *NA* (08/02/24 4:31 PM)Invalid Interpretation Code1.005 - 1.030[facility] UA Auto SS Urobilinogen (U) [Mass/Vol]NegativeNormalNegativemg/dLFAIRFAX COMMUNITY HOSPITAL – [facility] UA Auto SSURINALYSIS Ordered By: Yusef Chung on 33-30-8834BB Spec DescClean Catch (08/02/24 4:31 PM)NormalFAIRFAX COMMUNITY HOSPITAL – [facility] UA Auto SSeGFROrdered By: SYSTEM SYSTEM on 07-34-7639rBOW626 mL/min/1.73 g8Avwroh>=59Remisol ChemComment on above:Performed By: #### [id number] #### [facility] [address] [place], [place] [address]DLQ AND AUTO DIFFon 04-34-8055HTOHEWKH BASOPHIL0.1 X10E9/L Normal0.0-0.2PFostoria City HospitalComment on above:Performed By: #### CBCA, CMP, 3040-3, 92183-8, #### [facility] ([id number]) [address] [place] [address] 527[address]CQJIORMZ NEUTROPHIL4.1 X10E9/LNormal1.5-6.6[facility]. Rita's Medical CenterComment on above:Performed By: #### CBCA, CMP, 3040-3, 05834-1, #### [facility] ([id number]) [address] [place] [address] 43432Qotmyhoim/100 WBC (Bld)0.9 %NormalProGraham Regional Medical Center Comment on above:Performed By: #### CBCA, CMP, 3040-3, 71251-6, 1987-10, #### [facility] ([id number]) [address] [place] [address] 14693Hwclcoermay (Bld) [#/Vol]0.1 10*3/uLNormal0.0-0.4[facility] Rita's Medical CenterComment on above:Performed By: #### CBCA, CMP, 3040-3, 29686-0, 1987-10, #### [facility] ([id number]) [address] [place] [address] 50607Dlfrykmjldo/100 WBC (Bld)0.8 %NormalMercy Health St. Rita's Medical Center Comment on above:Performed By: #### CBCChi, STEVE, 0-3, , 1987-10, #### [facility] ([id number]) [address] [place] [address] 33954Jjdctrondzq distribution width (RBC) [Ratio]20.0 %High11.5-15.[address] Rita's Medical CenterComment on above:Performed By: #### CBCChi, CMP, 3040-3, 22618-4, 1987-10, #### [facility] ([id number]) [address] [place] [address] 65031Bmxbwpldlk (Bld) [Volume fraction]34.2 %Gcw94-28MszOzpmuhGraham Regional Medical CenterComment on above:Performed By: #### CBCA, CMP, 3040-3, 62764-4, 1987-10, #### [facility] ([id number]) [address] [place] [address] 54659Fwqvuisutt (Bld) [Mass/Vol]10.7 g/dLLow11.7-15.5[facility] Vacavalley HospitalComment on above:Performed By: #### CBCA, CMP, 3040-3, 83653-9, 1987-10, #### [facility] ([id number]) [address] [place] [address] 62258Zmczdqxdbvc (Bld) [#/Vol]2.3 10*3/uLNormal1.0-3.5Pro[facility] Vacavalley HospitalComment on above:Performed By: #### CBCA, CMP, 3040-3, 38645-0, 1987-10, #### [facility] ([id number]) [address] [place] [address] 74424Ngakglhorkx/100 WBC (Bld)33.8 %NormalMercy Health St. Rita's Medical Center Comment on above:Performed By: #### CBCA, CMP, 3040-3, 34151-1, 1987-10, #### [facility] ([id number]) [address] [place] [address] 22081BDU (RBC) [Entitic mass]22.6 snPym76-41AdeSvfrxoMercy Health St. Rita's Medical CenterComment on above:Performed By: #### CBCA, CMP, 3040-3, 75594-5, 1987-10, #### [facility] ([id number]) [address] [place] [address] 56112FHNX (RBC) [Mass/Vol]31.4 g/nWDcz03-19CahUqkukxMercy Health St. Rita's Medical CenterComment on above:Performed By: #### CBCA, CMP, 3040-3, 42624-8, 1987-10, #### [facility] ([id number]) [address] [place] [address] 62240NDZ (RBC) [Entitic vol]72 eVZhj49-873IkfSyyavqMercy Health St. Rita's Medical Center Comment on above:Performed By: #### CBCA, CMP, 3040-3, 44905-3, 1987-10, #### [facility] ([id number]) [address] [place] [address] 13526Srhnaxcym (Bld) [#/Vol]0.4 10*3/uLNormal0-0.9[facility] St. Rita's Medical CenterComment on above:Performed By: #### CBCA, CMP, 3040-3, 79258-9, 1987-10, #### [facility] ([id number]) [address] [place] [address] 01335Lkkzylyvp/100 WBC (Bld)5.5 %NormalMercy Health St. Rita's Medical Center Comment on above:Performed By: #### CBCA, CMP, 3040-3, 32430-8, 1987-10, #### [facility] ([id number]) [address] [place] [address] 29399Fcfpiwqhtdq/100 WBC (Bld)59.0 %NormalMercy Health St. [facility]'s Medical Center Comment on above:Performed By: #### CBCA, CMP, 3040-3, 50371-0, 1987-10, #### [facility] ([id number]) [address] [place] [address] 00603Vzwigbyq mean volume (Bld) [Entitic vol]7.3 fLNormal7-12 ProMedicTahoe Forest HospitalComment on above:Performed By: #### CBCA, CMP, 3040-3, 83482-1, 1987-10, #### [facility] ([id number]) [address] [place] [address] 46765Wrzqoxyov (Bld) [#/Vol]517 10*3/pHLsnt561-700WyrBihqcsGraham Regional Medical CenterComment on above:Performed By: #### CBCA, CMP, 3040-3, 40032-2, 1987-10, #### [facility] ([id number]) [address] [place] [address] 13739NLA COUNT4.76 X10E12/LNormal3.80-5.20[facility] Comment on above:Performed By: #### STEVE NAYAK, 3040-3, 78025-6, 1987-10, #### [facility] ([id number]) [address] [place] [address] 29097TVI (Bld) [#/Vol]6.9 10*3/uLNormal4.0-11.0ProGraham Regional Medical CenterComment on above:Performed By: #### STEVE NAYAK, 3040-3, 18113-3, 1987-10, #### [facility] ([id number]) [address] [place] [address] 79517OXZPMKZWKABMO METABOLIC PANELon 62-81-9960Asinpoj [Mass/Vol]4.3 g/dLNormal3.2-5.3PFostoria City HospitalComment on above:Performed By: #### STEVE NAYAK, 3040-3, 23492-8, 1987-10, #### [facility] ([id number]) [address] [place] [address] 35105KOU [Catalytic activity/Vol]75 U/QMdalqm34-388HdbZtisndGraham Regional Medical CenterComment on above:Performed By: #### STEVE NAYAK, 3040-3, 19362-8, 1987-10, #### [facility] ([id number]) [address] [place] [address] 45138UDY [Catalytic activity/Vol]25 U/LNormal0-31PFostoria City HospitalComment on above:Performed By: #### MALINI, STEVE, 3040-3, 80790-3, 1987-10, #### [facility] ([id number]) [address] [place] [address] 37699Moggd gap [Moles/Vol]8 mmol/LNormal5-15ProGraham Regional Medical CenterComment on above:Performed By: #### STEVE NAYAK, 3040-3, 62370-8, 1987-10, #### [facility] ([id number]) [address] [place] [address], [place] [address]JVF [Catalytic activity/Vol]26 U/LNormal0-41ProGraham Regional Medical CenterComment on above:Performed By: #### MALINI, STEVE, 3040-3, 28260-7, 1987-10, #### [facility] ([id number]) [address] [place] [address], [place] [address]Ylymjtpxk [Mass/Vol]0.6 mg/dLNormal0.3-1.2PFostoria City HospitalComment on above:Performed By: #### STEVE NAYAK, 3040-3, 14120-6, 1987-10, #### [facility] ([id number]) [address] [place] [address], [place] [address]Fiwejyk [Mass/Vol]9.5 mg/dLNormal8.5-10.5PFostoria City HospitalComment on above:Performed By: #### STEVE NAYAK, 3040-3, 30255-2, 1987-10, #### [facility] ([id number]) [address] [place] [address], [place] [address]Lkwrnqxr [Moles/Vol]107 mmol/XIkscga81-660WcpXudnbyGraham Regional Medical CenterComment on above:Performed By: #### STEVE NAYAK, 3040-3, 43305-5, 1987-10, #### [facility] ([id number]) [address] [place] [address], [place] [address]AX3 [Moles/Vol]21 mmol/JTqq02-77JqeBjskweFostoria City Hospital Comment on above:Performed By: #### STEVE NAYAK, 3040-3, 34598-0, 1987-10, #### [facility] ([id number]) [address] [place] [address] 89636Onzlfkyahx [Mass/Vol]0.83 mg/dLNormal0.40-1.00ProGraham Regional Medical CenterComment on above:Result Comment: METHOD TRACEABLE TO IDMS STANDARD Performed By: #### STEVE NAYAK, 3040-3, 13937-9, 1987-10, #### [facility] ([id number]) [address] [place] [address] 73124xHQB (CKD-EPI) NON-RACE DEPENDENT>90Normal>59ProGraham Regional Medical CenterComment on above:Result Comment: Reported eGFR is based on the CKD-EPI 2020 equation that does not use a race coefficient.Performed By: #### STEVE NAYAK, 3039-3, , , #### [facility] ([id number]) [address] [place] [address] 26281Jihsygi [Mass/Vol]118 mg/vKCful57-89AhtFsvfviMercy Health St. [facility]'s Medical Center Comment on above:Performed By: #### STEVE NAYAK, 0-3, , 1985-10, #### [facility] ([id number]) [address] [place] [address] 97745Vaasmbyzp [Moles/Vol]4.0 mmol/LNormal3.5-5.0ProGraham Regional Medical CenterComment on above:Performed By: #### STEVE NAYAK, 3040-3, 91685-9, 1985-10, #### [facility] ([id number]) [address] [place] [address] 48252Dxunnbj [Mass/Vol]8.2 g/dLHigh6.0-8.0[facility] Comment on above:Performed By: #### STEVE NAYAK, 3040-3, 67154-4, 1985-10, #### [facility] ([id number]) [address] [place] [address] 55090Ryyxci [Moles/Vol]136 mmol/GNmqnup053-588SxjDxnpjq [facility] HospitalComment on above:Performed By: #### MALINI, STEVE, 3040-3, 78317-1, 1987-10, #### [facility] ([id number]) [address] [place] [address] 27078Upsx nitrogen [Mass/Vol]8 mg/dLNormal5-23ProGraham Regional Medical CenterComment on above:Performed By: #### MALINI, STEVE, 3040-3, 71695-7, 1987-10, #### [facility] ([id number]) [address] [place] [address] 52236HJMPMSzt 14-83-5080Xemvnu [Catalytic activity/Vol]31 U/LNormal 17-40ProGraham Regional Medical CenterComment on above:Performed By: #### STEVE NAYAK, 3040-3, 35425-5, 1987-10, #### [facility] ([id number]) [address] [place] [address] 17678NAA MACROSCOPIC NURon 85-38-8800YYGNMCGHX NURNegativeNormalNEG [facility] Vacaval[facility] HospitalComment on above:Performed By: #### MALINI, CMP, 3040-3, 57907-3, 1987-10, #### [facility] ([id number]) [address] [place] [address] 69897EVKLC/HGB NURNegativeNormalNEGMercy Health St. Rita's Medical CenterComment on above:Performed By: #### MALINI, CMP, 3040-3, 18463-0, 1987-10, #### [facility] ([id number]) [address] [place] [address], [place] [address]QVHVJJH NURNegativeNormalNEGProGraham Regional Medical CenterComment on above:Performed By: #### ARACELISA, CMP, 3040-3, 86697-9, 1987-10, #### [facility] ([id number]) [address] [place] [address] [place] [address]OQYLTHU NURNegativeNormalNEGProGraham Regional Medical CenterComment on above:Performed By: #### ARACELISA, CMP, 3040-3, 97894-8, 1987-10, #### [facility] ([id number]) [address] [place] [address], [place] [address]BWDLJIXMH ESTERASE NURNegativeNormalNEGMercy Health St. Rita's Medical CenterComment on above:Performed By: #### ARACELISA, CMP, 3040-3, 15733-1, 1987-10, #### [facility] ([id number]) [address] [place] [address] [place] [address]BHLRTWF NURNegativeNormalNEGProGraham Regional Medical CenterComment on above:Performed By: #### MALINI, CMP, 3040-3, 93731-3, 1987-10, #### [facility] ([id number]) [address] [place] [address] [place] [address]TY NUR6.2Ijrrbl7.0-8.5[facility]aval[facility] HospitalComment on above:Performed By: #### CBCA, CMP, 3040-3, 87598-0, 1987-10, #### [facility] ([id number]) [address] [place] [address] [place] [address]WQOFYOF NURNegativeNormalNEGProOhiohealth Van W[facility] Hospitalca Northbay Vacavalley HospitalComment on above:Performed By: #### CBCA, CMP, 3040-3, 01800-0, 1987-10, #### [facility] ([id number]) [address] [place], [place] [address]EDJDVZLW GRAVITY AUDREY<=1.059Wptqdq2.003-1.035[facility] Vacavalley HospitalComment on above:Performed By: #### MALINI STEVE, 3040-3, 62097-4, 1987-10, #### [facility] ([id number]) [address] [place] [address] 75540SNYWNNAURYFA NUR0.2 eu/dLNormal<1.1[facility] Comment on above:Performed By: #### STEVE NAYAK, 3040-3, 57584-9, 1987-10, #### [facility] ([id number]) [address] [place] [address] 03581Czaxbv Summaryon 42-49-4338Bszjgc SummaryMLBase 64 XbgosrfiJVa8wRj+PGhlYWQ+BL6UDYTwN61tiDAixK6aY1RMRDcRWjiuKHXZZFxXNyPfieHqCX8coJOw ZXJu [file] b2x (more content not included)...[facility] HospitalCoding Summaryon 64-09-6460Qhfdcr SummaryHTMLBase 64 RrgqbslqLWx2yIz+PGhlYWQ+BT4CGHHnW58bxOAgnK6cW9GWAKdKAmkpLHNFUOkCLbRkusHkJP1ysREw ZXJu [file] b2x (more content not included)...[facility] HospitalED Clinical Summaryon [id number] Clinical [facility] - Emergency Department [address] [place] [address] [id number] ED Clinical Summary PERSON INFORMATION Name: ANTONIA NOYOLA Age: 39 Years Sex: FEMALE : 1985 MRN: Acct#: Visit Reason: Abdominal pain; ABD PAIN Arrival: 07/10/2024 21:55:42 Discharge: 07/11/2024 00:52:00 LOS: 000 02:57 Check In: 07/10/2024 21:55:42 Checkout:07/11/2024 00:52:00 Address: [address] [place] [address] PCP: Provider, None PROVIDER INFORMATION Provider Role [...] Hill. Contact your primary care provider or VIDEO SYSTEM REPAIRER for further evaluation and treatment of your condition. Return to ER for any worsening symptoms especially any symptom that concerns you. DIAGNOSIS: Abdominal pain, chronic, right lower quadrant; Other chronic pain Patient Understands: Yes - Patient/family/caregiver verbalizes understanding of instructions given Comment:[facility] HospitalED Note - Physicianon 57-02-4095QO Note - PhysicianPatient: ANTONIA NOYOLA Age: 39 years Sex: FEMALE [...] here for right lower abdominal pain. States symptomsstarted four days ago. Hx. of endometreosis. . [...] that she had surgery performed by her PRODUCT DEVELOPMENT CARPENTER at [facility], several months ago. Patient reported that [...] She stated that she had contacted her PRODUCT DEVELOPMENT CARPENTER and was told to come to the [...] EVERY 8-12 HOURS NEEDED FOR ANXIETY FOR 2DAYS CeleXA: 0 Refill(s) acetaminophen-oxycodone 325 mg-5 mg oral tablet: 1 tab(s), [...] HI SpO2 100 % (more content not included)...[facility] HospitalED Note-Nursingon 71-70-8315KU Note-NursingThis nurse entered room to discharge pt- Pt had self removed IV and left without discharge instructions. [facility]ED [facility] Summaryon [id number] [facility] SummaryC[facility] [address] [id number] PATIENT DISCHARGE INSTRUCTIONS Patient Information Name: ANTONIA NOYOLA Age: 39 Years Date of : 1985 [facility]: [id number] Reason For Visit: Abdominal pain; ABD PAIN Arrival Time: 07/10/2024 21:55:42 Primary Care Physician: Provider, None Attending Physician: Eran Hill MD Comment: Visit Diagnosis: Diagnoses This Visit Abdominal pain (11136570) Abdominal pain, chronic, right lower quadrant (R10.31) Other chronic pain (G89.29) The Pharmacy at [facility] is open Tuesday through Tuesday from 9A to 6P and Tuesday and Tuesday from 9A to 5P Prescription Information: If you have been given a prescription for narcotics, seek immediate medical attention if you have any difficulty breathing or any sudden status changes such as confusion andsleepiness. If you or anyone you know is experiencing suicidal thoughts, mental health, alcohol and/or drug addiction problems; contact the [facility] 03/01 Crisis Hotline -Text 6BPHI gn 599869. If you received any narcotics, sedation, or [...] Hill. Contact your primary care provider or VIDEO SYSTEM REPAIRER for further evaluation and treatment of your condition. Return to ER for any worsening symptoms especially any symptom that concerns you. Medication Information: The exam and treatment you received today in the [facility] Emergency Department were for an urgent problem and are not intended as complete care. It is important for you to follow up with a doctor, nurse practitioner, or physician?s program assistant for ongoing care. If your symptoms become worse or you donot improve as expected and you are unable [...] so we can reach you if necessary. [facility] Emergency Department has provided you with a complete list of medications post discharge. Please inform your construction estimator/provider of your visit and for further instruction on these medications. Any specific questions regarding your chronic medications and dosages should be discussed with your primary care physician(s) and/or pharmacist. Additional medications on your home medication list not specifically addressed. Please contact the ordering physician if you have questions about these medications. acetaminophen-oxycodone (acetaminophen-oxycodone 325 mg-5 mg oral tablet) 1 tab(s) [...] tablet, disintegrating) DISSOLVE 1 TABLET ORALLY DAILY NEEDEDFOR NAUSEA AND VOMITING. traMADol (traMADol 50 mg [...] Measured: 84 kg Weig (more content not included)...[facility] HospitalProess Note - Nurse on 43-52-5957Dtpfhrgg Note - NursePhysician to bedside to consult with patient now [Electronically Signed on: 07/11/2024 00:26 EST] Celestina Saenz RN [Verified on: 07/11/2024 00:26 EST] Celestina Saenz RN [facility].Auto Diff 1on 34-54-1597Ghef [place] %6 %Normal1-12[facility] Medical CenterComment on above:Performed By: #### [id number], [id number], 9537746132, 5452536, 8954050, 95374789 ####[facility] (DEFAULT)[address] [place] [address] 48919Rxbu Abs#0.0 z40Qgpgbj4.0-0.2 [facility] CenterComment on above:Performed By: #### [id number], 9919903380, 8626992597, 7894644, 4355719, 22339395 ####[facility] (DEFAULT)[address] [place] [address] 53295Trkzqqbuu/100 WBC (Bld)0.4 %Normal0.2-2.0[facility] Medical CenterComment on above:Performed By: #### [id number], 2509975957, 2737215336, 7265946, 2485954, 08046004 ####[facility] (DEFAULT)[address] [place] [address] 37760Uyt Abs#0.0 p94Ubbxvt6.0-0.4[facility]uder HospitalComment on above: Performed By: #### [id number], 9527484578, 2376304373, 3149482, 9802488, 41896459 ####[facility] (DEFAULT)[address] [place] [address] 23634 Eosinophils/100 WBC (Bld)0.3 %Low0.9-4.0[facility] HospitalComment on above: Performed By: #### [id number], 2116331472, 8024178089, 0937730, 3907980, 22989680 ####[facility] (DEFAULT)[address] [place] [address] 74880 Lymph Abs#2.9 a97Jtufqp8.3-2.9[facility] HospitalComment on above:Performed By: #### [id number], 0743721698, 5488403198, 5504776, 4933253, 20027495 ####[facility] (DEFAULT)[address] [place] [address] 09754Bagybbawubs/100 WBC (Bld)40 %Froctw89-18Gzsrhesk HospitalComment on above:Performed By: #### [id number], 0526407767, 4085434187, 6338415, 1229873, 48342127 ####[facility] (DEFAULT)[address] [place] [address] 87893Kyex Abs#0.5 x61Mcjosn 0.0-0.8[facility] HospitalComment on above:Performed By: #### [id number], 7620944573, 4738376529, 4694289, 8440915, 89354272 ####[facility] (DEFAULT)[address] [place] [address] 70355Gptk Abs#3.8 v83Hgkabm1.5-9.2 [facility] HospitalComment on above:Performed By: #### [id number], 1671535461, 7220152458, 2722596, 9582626, 66977330 ####[facility] (DEFAULT)[address] [place] [address] 58271Rfciyvsnrdy/100 WBC (Bld)52 %Xnsttk19-92Mmxcglkb HospitalComment on above:Performed By: #### [id number], 0458807349, 3022473119, 3828018, 3050237, 96405784 ####[facility] (DEFAULT)[address] [place] [address] 68448Mlkk [place] %5 %Normal1-12[facility] HospitalComment on above: Performed By: #### [id number], 5204687, 34546901 #### [facility] (DEFAULT) [address] [place] [address] 49927Jcox Abs#0.1 d35Xpcbip2.0-0.2[facility] HospitalComment on above:Performed By: #### [id number], 8961792, 68794699 #### [facility] (DEFAULT) [address] [place] [address] 32126Osdcrikcq/100 WBC (Bld)1.4 %Normal0.2-2.0[facility] Hospital Comment on above:Performed By: #### [id number], 9959881, 63345240 #### [facility] (DEFAULT) [address] [place] [address] 45743Ifo Abs#0.0 o98Ledyxr3.0-0.4[facility] HospitalComment on above:Performed By: #### [id number], 7021844, 17231120 #### [facility] (DEFAULT) [address] [place] [address] 47862Lmmsbsvrito/100 WBC (Bld)0.3 %Low0.9-4.0[facility] Hospital Comment on above:Performed By: #### [id number], 0582233, 04828887 #### [facility] (DEFAULT) [address] [place] [address] 26412Nvqtc Abs#1.6 f15Nuvixr6.3-2.9[facility] HospitalComment on above:Performed By: #### [id number], 6782037, 00598708 #### [facility] (DEFAULT) [address] [place] [address] 14040Qadtonzwhyx/100 WBC (Bld)30 %Obosrb18-41Xxzlfcdw Hospital Comment on above:Performed By: #### [id number], 7495503, 48074941 #### [facility] (DEFAULT) [address] [place] [address] 80964Awaw Abs#0.2 v71Vcxzlk1.0-0.8[facility] HospitalComment on above:Performed By: #### 6553713682, 7025765, 29464250 #### [facility] (DEFAULT) [address] [place] [address] 92519Nkck Abs#3.3 s66Xrcxeh5.5-9.2[facility] HospitalComment on above:Performed By: #### [id number], 4025264, 07870879 #### [facility] (DEFAULT) [address] [place] [address] 25044Bnmeprpwmsk/100 WBC (Bld)63 %Teyocq60-94[facility] Comment on above:Performed By: #### [id number], 1734711, 86318052 #### [facility] (DEFAULT) [address] [place] [address] 70515JNJ w/ Auto Diffon 42-85-7130Hnahuspmcfo distribution width (RBC) [Ratio]20.4 %High11.5-15.0[facility] HospitalComment on above: Performed By: #### [id number], 4307688344, 6446949161, 0066729, 2536744, 62316092 ####[facility] (DEFAULT)[address] [place] [address] 24308 Hematocrit (Bld) [Volume fraction]35.6 %Cbkpnt30.7-40.4[facility] HospitalComment on above:Performed By: #### [id number], 8440275430, 9772801028, 5738282, 0476416, 89634557 ####[facility] (DEFAULT)[address] [place] [address] 61748Qlkzsmjjsv (Bld) [Mass/Vol]11.1 g/dLLow11.3-15.9[facility] HospitalComment on above:Performed By: #### [id number], 7282583098, 4855545565, 7271786, 2896131, 07386446 ####[facility] (DEFAULT)[address] [place] [address] 15525Ctk Diff?AutoInvalid Interpretation CodeOhio State Harding Hospital HospitalComment on above:Performed By: #### [id number], 1222894875, 7919707698, 5227736, 2732398, 09262931 ####[facility] (DEFAULT)[address] [place] [address] 98061 MCH (RBC) [Entitic mass]23 joMyr05-37Pyxkovbe HospitalComment on above:Performed By: #### [id number], 8312797953, 6025521986, 8911363, 1360798, 65388866 ####[facility] (DEFAULT)[address] [place] [address] 18560WNJA (RBC) [Mass/Vol]31 g/nOYyueet51-50Xyflquej HospitalComment on above:Performed By: #### 6469011740, 1333082425, 0591655737, 1381464, 4576533, 98498142 ####[facility] (DEFAULT)[address] [place] [address] 73163ZGO (RBC) [Entitic vol] 73 lAZjj51-799Bmoaxwhm HospitalComment on above:Performed By: #### 6413922473, 0944638894, 8652116316, 4024790, 7888259, 04727254 ####[facility] (DEFAULT)[address] [place] [address] 02931Ceartkfz318 i79Bddm356-295 [facility] CenterComment on above:Performed By: #### 1303002378, 4348330386, 3463621219, 2260715, 6199119, 27137916 ####[facility] (DEFAULT)[address] [place] [address] 47355Lmapahpa mean volume (Bld) [Entitic vol]8.1 fLNormal 6.3-10.2[facility] HospitalComment on above:Performed By: #### [id number], 1726255636, 1777415464, 5957125, 6318299, 58516772 ####[facility] (DEFAULT)[address] [place] [address] 77957NNT5.91 c31Mrxriz6.70-5.30 [facility] CenterComment on above:Performed By: #### [id number], 7745012728, 0227983875, 5409996, 9054168, 91435225 ####[facility] (DEFAULT)[address] [place] [address] 93725FMH7.2 a58Ngfwws1.5-10.5[facility] CenterComment on above:Performed By: #### 4540474751, 6322447855, 6063201202, 1031194, 5376429, 02593097 ####[facility] (DEFAULT)[address] [place] [address] 47436 Erythrocyte distribution width (RBC) [Ratio]19.9 %High11.5-15.0[facility] Comment on above:Performed By: #### 3334716690, 3733651, 34291324 #### [facility] (DEFAULT) [address] [place] [address] 39023Willkumgwz (Bld) [Volume fraction]34.0 %Zoijdc83.7-40.4 [facility] CenterComment on above:Performed By: #### 5292624656, 0199574, 55616855 #### [facility] (DEFAULT) [address] [place] [address] 32828Eznaqhcpbh (Bld) [Mass/Vol]10.7 g/dLLow11.3-15.9[facility] CenterComment on above:Performed By: #### 3241154629, 1297123, 82536263 #### [facility] (DEFAULT) [address] [place] [address] 40910Cgy Diff?AutoInvalid Interpretation [facility] Comment on above:Performed By: #### 2735745370, 6163597, 06929685 #### [facility] (DEFAULT) [address] [place] [address] 42143RTZ (RBC) [Entitic mass]23 faSpp32-74Lcayrvdd Hospital Comment on above:Performed By: #### 3629946797, 3073815, 24629795 #### [facility] (DEFAULT) [address] [place] [address] 68971GPMO (RBC) [Mass/Vol]32 g/sWAchkmb32-88Xsqnxhve Hospital Comment on above:Performed By: #### 6828053771, 8038638, 04936251 #### [facility] (DEFAULT) [address] [place] [address] 00106FYL (RBC) [Entitic vol]72 tIHof09-972Dekxvwfk Hospital Comment on above:Performed By: #### [id number], 2841496, 83049031 #### [facility] (DEFAULT) [address] [place] [address] 21697Zggoccdb972 x33Kztp987-797Wdeloygz HospitalComment on above:Performed By: #### 8696145603, 5921565, 61527528 #### [facility] (DEFAULT) [address] [place] [address] 84873Zozklkwy mean volume (Bld) [Entitic vol]7.7 fLNormal 6.3-10.2MGenesis HospitalComment on above:Performed By: #### 0407059117, 7909882, 81350960 #### [facility] (DEFAULT) [address] [place] [address] 53710DNU8.72 q95Gzmogf3.70-5.30[facility] HospitalComment on above:Performed By: #### 6150522372, 8698478, 14000581 #### [facility] (DEFAULT) [address] [place] [address] 12368QEU9.2 t74Lezdhv6.5-10.5[facility] HospitalComment on above: Performed By: #### 4739558212, 6788118, 93836365 #### [facility] (DEFAULT) [address] [place] [address] 39664EVO Standardon 34-67-7169aGBL Non AA>60Invalid Interpretation [facility] HospitalComment on above:Performed By: #### [id number], 8469540815, 9911764449, 8526631, 3778945, 05019857 ####[facility] (DEFAULT)[address] [place] [address] 43448fZSZ AA>60Invalid Interpretation [facility] HospitalComment on above:Performed By: #### [id number], 3405154037, 1375576104, 1267632, 7961134, 54135092 ####[facility] (DEFAULT)[address] [place] [address] 35757Nsqxkeq [Mass/Vol]4.4 g/dLNormal3.5-5.0[facility] HospitalComment on above:Performed By: #### [id number], 4636496033, 6727198021, 5162792, 1253205, 42272051 ####[facility] (DEFAULT)[address] [place] [address] 21965Nwnwvrm/Globulin [Mass ratio]1.0 {ratio}Low1.4-2.6[facility] HospitalComment on above:Performed By: #### 4946465624, 5182404608, 8120462403, 1209641, 8346915, 76683072 ####[facility] (DEFAULT)[address] [place] [address] 04488Zkx Phos64 IU/LNormal 32-91[facility] HospitalComment on above:Performed By: #### 9933607646, 2978206943, 6953245755, 4735624, 0963119, 02193341 ####[facility] (DEFAULT)[address] [place] [address] 46178TQX [Catalytic activity/Vol]17.0 U/DYtrozl44.0-54.0[facility] HospitalComment on above:Performed By: #### 4725435013, 9749354818, 3815959782, 0299816, 9924098, 19766202 ####[facility] (DEFAULT)[address] [place] [address] 64731Bihhx gap [Moles/Vol] 16.1 mmol/LNormal5.0-19.0[facility] HospitalComment on above:Performed By: #### 5323017905, 9845945679, 6473937134, 8532215, 1842426, 51260354 ####[facility] (DEFAULT)[address] [place] [address] 53301POZ [Catalytic activity/Vol]22 U/EZzxfzk70-06Cswsqpku HospitalComment on above:Performed By: #### [id number], 3174669975, 7256176526, 2262460, 7270033, 32651198 ####[facility] (DEFAULT)[address] [place] [address] 11942Lqen Total0.7 mg/dL Normal0.3-1.2[facility] HospitalComment on above:Performed By: #### 5069652610, 2663444882, 8795450970, 1191377, 6032422, 77875713 ####[facility] (DEFAULT)[address] [place] [address] 80951Dwiztbg [Mass/Vol]9.3 mg/dL Normal8.9-10.3[facility] HospitalComment on above:Performed By: #### 1505450864, 4518606642, 9839607222, 5239265, 1499163, 93770529 ####[facility] (DEFAULT)[address] [place] [address] 60271Dmexsdik [Moles/Vol]105 mmol/L Bzozci609-092Jynfakiz HospitalComment on above:Performed By: #### 3596549783, 3365103426, 9110626468, 1409238, 5801038, 91432699 ####[facility] (DEFAULT)[address] [place] [address] 98987SS1 [Moles/Vol]21 mmol/LNormal 21-32[facility] HospitalComment on above:Performed By: #### [id number], 5606191010, 4773352955, 1935834, 8260139, 45909410 ####[facility] (DEFAULT)[address] [place] [address] 86765Vmdipookkp [Mass/Vol]0.90 mg/dL Normal0.60-1.30[facility] HospitalComment on above:Performed By: #### 4255321746, 9914644236, 7916032801, 4890109, 5321555, 69290999 ####[facility] (DEFAULT)[address] [place] [address] 50069Wyerfsac (S) [Mass/Vol]4.3 g/dL Normal1.5-4.3[facility] HospitalComment on above:Performed By: #### [id number], 8355475441, 1034397961, 4416261, 2894296, 63772839 ####[facility] (DEFAULT)[address] [place] [address] 34323Ovhkvrm [Mass/Vol]100.0 mg/dL Ktqhgo20.0-118.0[facility] HospitalComment on above:Performed By: #### [id number], 8671141006, 5921337311, 1309147, 0899175, 94537014 ####[facility] (DEFAULT)[address] [place] [address] 47553Euiqzqsuvl118 mOsm/LInvalid Interpretation CodeOhio [facility] HospitalComment on above:Performed By: #### [id number], [id number], [id number], 1668254, 5186804, [id number] ####[facility] (DEFAULT)[address] [place] [address] 64791Tcpfohgnf [Moles/Vol] 3.1 mmol/LLow3.6-5.1[facility] HospitalComment on above:Performed By: #### [id number], [id number], [id number], 7289107, 4108560, [id number] ####[facility] (DEFAULT)[address] [place] [address] 29163Wriovhd [Mass/Vol]8.7 g/dLHigh6.5-8.1[facility] HospitalComment on above:Performed By: #### [id number], [id number], [id number], 5944731, 1726057, 47686031 ####[facility] (DEFAULT)[address] [place] [address] 24947Klgqij [Moles/Vol]139.0 mmol/L Jlddxd170.0-144.0[facility] HospitalComment on above:Performed By: #### [id number], [id number], [id number], 9339056, 5249443, 22389125 ####[facility] (DEFAULT)[address] [place] [address] 79305Wsdm nitrogen [Mass/Vol]8 mg/dLNormal8-26[facility] HospitalComment on above:Performed By: #### [id number], [id number], [id number], 6526389, 6482281, 40841216 ####[facility] (DEFAULT)[address] [place] [address] 16656Uxbv nitrogen/Creatinine [Mass ratio]8.8 mg/mgNormal4.6-16.2[facility] HospitalComment on above:Performed By: #### [id number], [id number], [id number], 1912979, 1457872, 14825212 ####[facility] (DEFAULT)[address] [place] [address] 59230fMCQ Non AA>60Invalid Interpretation CodeOhio [facility] HospitalComment on above:Performed By: #### [id number], [id number], [id number] ####[facility] (DEFAULT)[address] [place] [address] 68944oMUV AA>60Invalid Interpretation CodeOhio State [facility] HospitalComment on above:Performed By: #### [id number], [id number], [id number] ####[facility] (DEFAULT)[address] [place] [address] 57827 Albumin [Mass/Vol]4.2 g/dLNormal3.5-5.0[facility] HospitalComment on above: Performed By: #### [id number], [id number], [id number] ####[facility] (DEFAULT)[address] [place] [address] 84428Kbfvckn/Globulin [Mass ratio]1.0 {ratio}Low1.4-2.6[facility] HospitalComment on above:Performed By: #### [id number], 7361642, [id number] ####[facility] (DEFAULT)[address] [place] [address] 40248Qoa Phos62 IU/YQrzyzw87-51Tkjvyphp HospitalComment on above:Performed By: #### [id number], [id number], [id number] ####[facility] (DEFAULT)[address] [place] [address] 73002LJM [Catalytic activity/Vol]18.0 U/REhuhrw60.0-54.0[facility] HospitalComment on above:Performed By: #### [id number], [id number], [id number] ####[facility] (DEFAULT)[address] [place] [address] 60021Yznwa gap [Moles/Vol]13.5 mmol/LNormal5.0-19.0 [facility] HospitalComment on above:Performed By: #### [id number], [id number], [id number] ####[facility] (DEFAULT)[address] [place] [address] 69991 AST [Catalytic activity/Vol]20 U/GPkrxev40-21Tahgkbti HospitalComment on above: Performed By: #### [id number], [id number], [id number] ####[facility] (DEFAULT)[address] [place] [address] 55749Uovd Total0.7 mg/dLNormal0.3-1.2 [facility] HospitalComment on above:Performed By: #### [id number], 7694587, [id number] ####[facility] (DEFAULT)[address] [place] [address] 30459 Calcium [Mass/Vol]9.2 mg/dLNormal8.9-10.3[facility] HospitalComment on above: Performed By: #### [id number], 3747628, [id number] ####[facility] (DEFAULT)[address] [place] [address] 61744Zdhtnnif [Moles/Vol]107 mmol/L Krduws159-770Gwrymqao HospitalComment on above:Performed By: #### [id number], 4771641, 44497770 ####[facility] (DEFAULT)[address] [place] [address] 26064UE2 [Moles/Vol]21 mmol/COqvlfe64-18Hiudoboa HospitalComment on above: Performed By: #### [id number], 3725242, [id number] ####[facility] (DEFAULT)[address] [place] [address] 62153Hrbxphuzre [Mass/Vol]0.74 mg/dL Normal0.60-1.30[facility] HospitalComment on above:Performed By: #### [id number], 0624918, [id number] ####[facility] (DEFAULT)[address] [place] [address] 99147Hpxpjzer (S) [Mass/Vol]4.0 g/dLNormal1.5-4.3[facility] HospitalComment on above:Performed By: #### [id number], [id number], [id number] ####[facility] (DEFAULT)[address] [place] [address] 96658Qejgnjn [Mass/Vol]109.0 mg/dL Zkwizh89.0-118.0[facility] HospitalComment on above:Performed By: #### [id number], 3017214, [id number] ####[facility] (DEFAULT)[address] [place] [address] 61788Enpynxyiik987 mOsm/LInvalid Interpretation CodeOhio State [facility]ing [facility] HospitalComment on above:Performed By: #### [id number], 6598635, [id number] ####[facility] (DEFAULT)[address] [place] [address] 98488Flauuftjx [Moles/Vol]3.5 mmol/L Low3.6-5.1[facility] HospitalComment on above:Performed By: #### [id number], 3008468, 10001581 ####[facility] (DEFAULT)[address] [place] [address] 73059Loetysr [Mass/Vol]8.2 g/dLHigh6.5-8.1[facility] HospitalComment on above: Performed By: #### [id number], 7482161, 78850961 ####[facility] (DEFAULT)[address] [place] [address] 86024Xflzbo [Moles/Vol]138.0 mmol/L Jlhdkk986.0-144.0[facility] HospitalComment on above:Performed By: #### [id number], 3752477, 30860216 ####[facility] (DEFAULT)[address] [place] [address] 24357Mxri nitrogen [Mass/Vol]8 mg/dLNormal8-26[facility] HospitalComment on above:Performed By: #### [id number], 5456839, [id number] ####[facility] (DEFAULT)[address] [place] [address] 98302Exlv nitrogen/Creatinine [Mass ratio]10.8 mg/mgNormal4.6-16.2[facility] HospitalComment on above:Performed By: #### [id number], 6598157, 20393153 ####[facility] (DEFAULT)[address] [place] [address] 49032Lrazo Blueon 84-08-1382Vsul CollectedYesInvalid Interpretation CodeOhio State [facility] HospitalComment on above: Performed By: #### [id number], [id number], [id number], 1545980, 2655718, 49260403 ####[facility] (DEFAULT)[address] [place] [address] 46094 Extra Redon 98-78-4630Vurr CollectedYesInvalid Interpretation CodeOhio State [facility] HospitalComment on above:Performed By: #### [id number], [id number], [id number], [id number], [id number] ####[facility] (DEFAULT)[address] [place] [address] 05807Ifpvhaju 36-09-6113Fhjyjd Level50.0 IU/KXnjkzb68.0-51.0[facility] HospitalComment on above:Performed By: #### [id number], [id number], [id number], 2808853, 1630557, 89703603 ####[facility] (DEFAULT)[address] [place] [address] 56239JY Yplxf8gx 95-14-8981RP BacteriaNoneNoMercy Health St[facility] Hospital Comment on above:Order Comment: Urinalysis Microscopic order added on by [employer] Expert Rules system.Performed By: #### [id number], [id number] #### [facility] (DEFAULT) [address] [place] [address] 04426AU RBC0-2NormalCincinnati Va Medical CenterComment on above:Order Comment: Urinalysis Microscopic order added on by [employer] Expert Rules system. Performed By: #### [id number], [id number] #### [facility] (DEFAULT) [address] [place] [address] 38170ZF Squam EpiFewNoCleveland Clinic Marymount HospitalComment on above: Order Comment: Urinalysis Microscopic order added on by [employer] Expert Rules system.Performed By: #### [id number], [id number] #### [facility] (DEFAULT) [address] [place] [address] 58202US WBC0-2NTrinity Health SystemComment on above:Order Comment: Urinalysis Microscopic order added on by [employer] Expert Rules system. Performed By: #### [id number], [id number] #### [facility] (DEFAULT) [address] [place] [address] 55851VW w Culture if Ind Standardon 60-33-9883Swonhoiedy UA NormalOhio State [facility] HospitalComment on above:Performed By: #### [id number], [id number] #### [facility] (DEFAULT) [address] [place] [address] 16372Mcvvs (U)YellowNoCleveland Clinic Marymount HospitalComment on above: Performed By: #### [id number], [id number] #### [facility] (DEFAULT) [address] [place] [address] 60417Mdvmndu?Not IndicatedInvalid Interpretation CodeCincinnati Va Medical CenterComment on above:Result Comment: Result created by rule GL_MAGR_ADD_UA_CULT Result created by rule GL_MAGR_ADD_UA_CULT Result created by rule GL_MAGR_ADD_UA_CULT1Performed By: #### [id number], [id number] #### [facility] (DEFAULT) [address] [place] [address] 59019Stgpdeb (U) [Mass/Vol]NegativeNormMercy Health Tiffin Hospital Hospital Comment on above:Performed By: #### [id number], [id number] #### [facility] (DEFAULT) [address] [place] [address] 85740Dhyrzmc Ql (U)NegativeNormalOhio State [facility] HospitalComment on above:Performed By: #### [id number], [id number] #### [facility] (DEFAULT) [address] [place] [address] 61061Pbxxr?IndicatedInvalid Interpretation CodeOkgrsouthwest general health center HospitalComment on above:Result Comment: Result created by rule GL_MAGR_ADD_UA_MICROPerformed By: #### [id number], [id number] #### [facility] (DEFAULT) [address] [place] [address] 71073UF BilirubinNegativeNormalOkgrsouthwest general health center HospitalComment on above:Performed By: #### [id number], [id number] #### [facility] (DEFAULT) [address] [place] [address] 16908PQ BloodTRACEAbnormalNEGATIVEOhio State [facility] HospitalComment on above:Performed By: #### [id number], [id number] #### [facility] (DEFAULT) [address] [place] [address] 18373EQ ClarityCLEARNormalCLEAROkgrsouthwest general health center HospitalComment on above:Performed By: #### [id number], [id number] #### [facility] (DEFAULT) [address] [place] [address] 10092IN Leuk EstNegativeNormalNEGATIVEOkgruder HospitalComment on above:Performed By: #### [id number], [id number] #### [facility] (DEFAULT) [address] [place] [address] 78940CJ NitriteNegativeNormalNEGATIVEMagrsouthwest general health center HospitalComment on above:Performed By: #### [id number], [id number] #### [facility] (DEFAULT) [address] [place] [address] 72924UD pH6.6Stkcau8-4Gsrgsyew HospitalComment on above: Performed By: #### [id number], [id number] #### [facility] (DEFAULT) [address] [place] [address] 74918WM ProteinNegativeNormalNEGATIVEOhio State [facility] HospitalComment on above:Performed By: #### [id number], [id number] #### [facility] (DEFAULT) [address] [place] [address] 36262RW Spec Grav1.315Vcqcwr0.001-1.035[facility] HospitalComment on above:Performed By: #### [id number], [id number] #### [facility] (DEFAULT) [address] [place] [address] 43798RN Urobilinogen0.2 mg/dLNormal0.2-1.0[facility] Hospital Comment on above:Performed By: #### [id number], [id number] #### [facility] (DEFAULT) [address] [place] [address] 39674Kthny SourceClean CatchNormalOhio State [facility] HospitalComment on above:Performed By: #### [id number], [id number] #### [facility] (DEFAULT) [address] [place] [address] 46403Ttbhpjxmba UANormalOhio State [facility] HospitalComment on above:Performed By: #### [id number] ####[facility] (DEFAULT)[address] [place] [address] 29591Mshka (U)StrawNormalOhio State [facility] HospitalComment on above:Performed By: #### [id number] ####[facility] (DEFAULT)[address] [place] [address] 32629Zirqtpd?Not IndicatedInvalid Interpretation Code [facility] HospitalComment on above:Result Comment: Result created by rule GL_MAGR_ADD_UA_CULT1Performed By: #### [id number] ####[facility] (DEFAULT)[address] [place] [address] 76458Mharkfi (U) [Mass/Vol]100 mg/dL NormalOhio State [facility] HospitalComment on above:Performed By: #### [id number] ####[facility] (DEFAULT)[address] [place] [address] 85029Zevounz Ql (U)NegativeNormalOhio State [facility] HospitalComment on above:Performed By: #### [id number] ####[facility] (DEFAULT)[address] [place] [address] 40746Jbjxq?Not IndicatedInvalid Interpretation CodeOhio State [facility] HospitalComment on above:Result Comment: Result created by rule GL_MAGR_ADD_UA_MICROPerformed By: #### [id number] ####[facility] (DEFAULT)[address] [place] [address] 94692MS BilirubinNegativeNormalOhio State [facility] HospitalComment on above:Performed By: #### [id number] ####[facility] (DEFAULT)[address] [place] [address] 85651KE BloodNegativeNormalNEGATIVEOhio State [facility] HospitalComment on above:Performed By: #### [id number] ####[facility] (DEFAULT)[address] [place] [address] 43331US ClarityCLEARNormalCLEAROhio State [facility] HospitalComment on above: Performed By: #### [id number] ####[facility] (DEFAULT)[address] [place] [address] 27823MY Leuk EstNegativeNormalNEGATIVEOhio State [facility] Hospital Comment on above:Performed By: #### [id number] ####[facility] (DEFAULT)[address] [place] [address] 49337XF NitriteNegativeNormalNEGATIVE [facility] HospitalComment on above:Performed By: #### [id number] ####[facility] (DEFAULT)[address] [place] [address] 18325HK pH6.9Ntgdbw2-4 [facility] HospitalComment on above:Performed By: #### [id number] ####[facility] (DEFAULT)[address] [place] [address] 78263TT ProteinNegative NormalNEGATIVECincinnati Va Medical CenterComment on above:Performed By: #### [id number] ####[facility] (DEFAULT)[address] [place] [address] 59284UA Spec Grav<=1.177Wihmcq4.001-1.035C[facility]innati Va Medical CenterComment on above:Performed By: #### [id number] ####[facility] (DEFAULT)[address] [place] [address] 49356GE Urobilinogen0.2 mg/dLNormal0.2-1.0[facility] Va Medical CenterComment on above: Performed By: #### [id number] ####[facility] (DEFAULT)[address] [place] [address] 40747Bzcpl SourceClean CatchNoCleveland Clinic Marymount Hospital Comment on above:Performed By: #### [id number] ####[facility] (DEFAULT)[address] [place] [address] 91720HTX AND AUTO DIFFon 07-07-2024 ABSOLUTE BASOPHIL0.1 X10E9/LNormal0.0-0.2PFostoria City HospitalComment on above:Performed By: #### CBCChi CMP, 3040-3, 18244-5, 1987-10, #### [facility] ([id number]) [address] [place] [address] 15926BTFTLBSY NEUTROPHIL2.1 X10E9/LNormal1.5-6.6[facility] Rita's Medical CenterComment on above:Performed By: #### CBCA CMP, 3040-3, 57522-7, 1987-10, #### [facility] ([id number]) [address] [place] [address] 35327Mmlogqsiq/100 WBC (Bld)1.3 %NormalMercy Health St. [facility]'s Medical Center Comment on above:Performed By: #### CBCA, CMP, 3040-3, 37229-2, #### [facility] ([id number]) [address] [place] [address] 43689Thelwbmwqkv (Bld) [#/Vol]0.1 10*3/uLNormal0.0-0.4[facility] Rita's Medical CenterComment on above:Performed By: #### CBCA, CMP, 3040-3, 14140-8, 1987-10, #### [facility] ([id number]) [address] [place] [address] 46959Hdflxeajwbx/100 WBC (Bld)1.7 %NormalMercy Health St. [facility]'s [facility] Comment on above:Performed By: #### CBCSTEVE Mireles, 3039-3, , 1987-10, #### [facility] ([id number]) [address] [place] [address] 36925Hvtzwjppjxd distribution width (RBC) [Ratio]19.6 %High11.5-15.[address] Rita's Medical CenterComment on above:Performed By: #### MALINI, CMP, 0-3, , 1987-10, #### [facility] ([id number]) [address] [place] [address] 48963Rxbxdzwtqg (Bld) [Volume fraction]33.8 %Vkw33-23FhlKpxdupGraham Regional Medical CenterComment on above:Performed By: #### CBCA, CMP, 3040-3, , 1987-10, #### [facility] ([id number]) [address] [place] [address] 25544Vausrvtzut (Bld) [Mass/Vol]10.7 g/dLLow11.7-15.5[facility] HospitalComment on above:Performed By: #### CBCA, CMP, 3040-3, 13378-7, 1987-10, #### [facility] ([id number]) [address] [place] [address] 48614Bkrsrpxqtbd (Bld) [#/Vol]2.3 10*3/uLNormal1.0-3.5PFostoria City HospitalComment on above:Performed By: #### CBCA, CMP, 3040-3, 18380-8, 1987-10, #### [facility] ([id number]) [address] [place] [address] 47862Vukewjrlgob/100 WBC (Bld)46.5 %NormalMercy Health St. [facility]'s Medical [facility] Comment on above:Performed By: #### CBCA, CMP, 3040-3, 39896-7, 1987-10, #### [facility] ([id number]) [address] [place] [address] 95364NSH (RBC) [Entitic mass]22.8 jsJrp54-92OfvBbifsqMercy Health St. Rita's Medical CenterComment on above:Performed By: #### CBCA, CMP, 3040-3, 39956-3, 1987-10, #### [facility] ([id number]) [address] [place] [address] 56622VERG (RBC) [Mass/Vol]31.8 g/pAJnr92-49AgpTtbfzdMercy Health St. Rita's Medical CenterComment on above:Performed By: #### CBCA, CMP, 3040-3, 33910-9, 1987-10, #### [facility] ([id number]) [address] [place] [address] 35855GKW (RBC) [Entitic vol]72 nCXuq41-931RtjBedpokMercy Health St. Rita's Medical Center Comment on above:Performed By: #### CBCA, CMP, 3040-3, 69586-4, 1987-10, #### [facility] ([id number]) [address] [place] [address] 29880Ahnayyxis (Bld) [#/Vol]0.4 10*3/uLNormal0-0.9[facility] St. Rita's Medical CenterComment on above:Performed By: #### CBCA, CMP, 3040-3, 02173-5, 1987-10, #### [facility] ([id number]) [address] [place] [address] 37803Exrjsejer/100 WBC (Bld)8.2 %[facility] Comment on above:Performed By: #### CBCA, CMP, 3040-3, 71587-7, 1987-10, #### [facility] ([id number]) [address] [place] [address] 20655Alsydxaxupf/100 WBC (Bld)42.3 %[facility] Comment on above:Performed By: #### CBCA, CMP, 3040-3, 82790-8, 1987-10, #### [facility] ([id number]) [address] [place] [address] 98516Btimlrtb mean volume (Bld) [Entitic vol]7.4 fLNormal7-[address] Rita's Medical CenterComment on above:Performed By: #### CBCA, CMP, 3040-3, 52091-7, 1987-10, #### [facility] ([id number]) [address] [place] [address] 05594Fgawxnzll (Bld) [#/Vol]480 10*3/kNUfac583-146OtoUfxvgqMercy Health St. Rita's Medical CenterComment on above:Performed By: #### CBCA, CMP, 3040-3, 86663-7, 1987-10, #### [facility] ([id number]) [address] [place] [address] 06051LJI COUNT4.70 X10E12/LNormal3.80-5.20[facility] Comment on above:Performed By: #### MALINI, CMP, 3040-3, 47351-5, 1987-10, #### [facility] ([id number]) [address] [place] [address] 97238PIG (Bld) [#/Vol]4.9 10*3/uLNormal4.0-11.0ProGraham Regional Medical CenterComment on above:Performed By: #### MALINI, CMP, 3040-3, 72454-5, 1987-10, #### [facility] ([id number]) [address] [place] [address] 94175LNWJTELDZFWVX METABOLIC PANELon 30-69-2253Xhmauxm [Mass/Vol]4.1 g/dLNormal3.2-5.3ProMedTorrance Memorial Medical CenterComment on above:Performed By: #### MALINI, CMP, 3040-3, 96627-7, 1987-10, #### [facility] ([id number]) [address] [place] [address] 27466HEC [Catalytic activity/Vol]67 U/YVplmco75-709CmrHbqhehGraham Regional Medical CenterComment on above:Performed By: #### MALINI, STEVE, 3040-3, 30047-4, 1987-10, #### [facility] ([id number]) [address] [place] [address] 44560BSJ [Catalytic activity/Vol]15 U/LNormal0-31PFostoria City HospitalComment on above:Performed By: #### ARACELISA, CMP, 3040-3, 00842-1, 1987-10, #### [facility] ([id number]) [address] [place] [address] 74032Efyax gap [Moles/Vol]7 mmol/LNormal5-15ProGraham Regional Medical CenterComment on above:Performed By: #### CBCA, CMP, 3040-3, 13548-3, 1987-10, #### [facility] ([id number]) [address] [place] [address] 28751HHG [Catalytic activity/Vol]19 U/LNormal0-41ProGraham Regional Medical CenterComment on above:Performed By: #### MALINI, STEVE, 3040-3, 82804-4, 1987-10, #### [facility] ([id number]) [address] [place] [address] 81839Ljgflolsp [Mass/Vol]0.6 mg/dLNormal0.3-1.2PFostoria City HospitalComment on above:Performed By: #### STEVE NAYAK, 3040-3, 64409-6, 1987-10, #### [facility] ([id number]) [address] [place] [address] 29040Eigssnm [Mass/Vol]9.1 mg/dLNormal8.5-10.5PFostoria City HospitalComment on above:Performed By: #### STEVE NAYAK, 3040-3, 66861-0, 1987-10, #### [facility] ([id number]) [address] [place] [address] 69701Pdvoukpb [Moles/Vol]107 mmol/QFsugug16-159LbkJpsaauGraham Regional Medical CenterComment on above:Performed By: #### MALINI, STEVE, 3040-3, 57608-1, 1987-10, #### [facility] ([id number]) [address] [place] [address], [place] [address]LE3 [Moles/Vol]24 mmol/TQmygjz38-10NyaIduqvpFostoria City Hospital Comment on above:Performed By: #### STEVE NAYAK, 3040-3, 05894-0, 1987-10, #### [facility] ([id number]) [address] [place] [address] 75173Gdrrxzncdo [Mass/Vol]0.88 mg/dLNormal0.40-1.00ProGraham Regional Medical CenterComment on above:Result Comment: METHOD TRACEABLE TO IDMS STANDARD Performed By: #### STEVE NAYAK, 3040-3, 34562-8, 1987-10, #### [facility] ([id number]) [address] [place] [address] 19956IGN/1.73 sq M.predicted among non-blacks MDRD (S/P/Bld) [Vol rate/Area]87 mL/min/{1.73_m2}Normal>59ProGraham Regional Medical CenterComment on above:Result Comment: Reported eGFR is based on the CKD-EPI 2020 equation that does not use a race coefficient.Performed By: #### STEVE NAYAK, 3040-3, , , #### [facility] ([id number]) [address] [place] [address] 68927Hoanbjg [Mass/Vol]97 mg/nWWwvjwo61-79ErjPvxpdgMercy Health St. Rita's Medical Center Comment on above:Performed By: #### STEVE NAYAK, 0-3, , 1987-10, #### [facility] ([id number]) [address] [place] [address] 64755Nawiduoof [Moles/Vol]3.7 mmol/LNormal3.5-5.0ProGraham Regional Medical CenterComment on above:Performed By: #### STEVE NAYAK, 3040-3, 51259-0, 1987-10, #### [facility] ([id number]) [address] [place] [address] 59566Yvhhmwx [Mass/Vol]7.6 g/dLNormal6.0-8.0ProGraham Regional Medical CenterComment on above:Performed By: #### STEVE NAYAK, 3040-3, 62433-3, 1987-10, #### [facility] ([id number]) [address] [place] [address] 40943Natpze [Moles/Vol]138 mmol/MHqvbxe490-420RudEozqfe Fremont HospitalComment on above:Performed By: #### STEVE NAYAK, 3040-3, 68772-4, 1987-10, #### [facility] ([id number]) [address] [place] [address] 78998Kajt nitrogen [Mass/Vol]7 mg/dLNormal-ProGraham Regional Medical CenterComment on above:Performed By: #### STEVE NAYAK, 3040-3, 29025-5, 1987-10, #### [facility] ([id number]) [address] [place] [address] 51533ZBW [Mass/Vol]on 07-07-2024 REACTIVE PROTEIN0.5 mg/dLNormal 0.000-0.744PFostoria City HospitalComment on above:Performed By: #### STEVE NAYAK, 3040-3, 90831-8, 1987-10, #### [facility] ([id number]) [address] [place] [address] 69335MC ABDOMEN AND PELVIS WO CONTon 28-00-0709YT ABDOMEN AND PELVIS WO CONTCT ABDOMEN AND PELVIS WO CONT CLINICAL INFORMATION: [...] of the liver, adrenal glands, pancreas and spleenappeared unremarkable. Kidneys appear to be unremarkable. Small [...] by Gustavo Randle MD on 07/07/2024 5:58 PMNormalProGraham Regional Medical CenterHCG ( test) Ql (U)on 72-83-3734Kiuv HCG ( test) Ql (U) NegativeNormalNEGMercy Health St. Rita's Medical CenterComment on above:Performed By: #### STEVE NAYAK, 3040-3, 71693-1, 1987-10, #### [facility] ([id number]) [address] [place] [address] [id number] 18-50-5660Xveixn [Catalytic activity/Vol]35 U/LNormal 17-40Mercy Health St. Rita's Medical CenterComment on above:Performed By: #### STEVE NAYAK, 3040-3, 54129-0, 1987-10, #### [facility] ([id number]) [address] [place] [address] 64465Vdkebnb (P arely) [Moles/Vol]on 33-66-8816WKMGRZU W/REFLEX1.5 mmol/LNormal0.4-2.0Mer[facility] Health St. Rita's Medical CenterComment on above:Result Comment: Result did not trigger repeat Lactate, re-order if needed.Performed By: #### STEVE ANYAK, 3040-3, 00908-8, 1987-10, #### [facility] ([id number]) [address] [place] [address] 90251YHK MACROSCOPIC NURon 63-06-4055VICELSVMI NURNegativeNormalNEG [facility]. Rita's Medical CenterComment on above:Performed By: #### STEVE NAYAK, 3040-3, 72850-3, 1987-10, #### [facility] ([id number]) [address] [place] [address] [place] [address]QQUPR/HGB NURSmallAbnormalNEGProGraham Regional Medical CenterComment on above:Performed By: #### MALINI, CMP, 3040-3, 82674-0, 1987-10, #### [facility] ([id number]) [address] [place] [address] [place] 00729AYMWDON NURNegativeNormalNEGProGraham Regional Medical CenterComment on above:Performed By: #### MALINI, CMP, 3040-3, 43357-5, 1985-10, #### [facility] ([id number]) [address] [place] [address] [place] [address]VCXHYDT NURNegativeNormalNEGMercy Health St. Rita's Medical CenterComment on above:Performed By: #### MALINI, CMP, 3040-3, 93054-3, 1985-10, #### [facility] ([id number]) [address] [place] [address] [place] [address]SWVYIWKIT ESTERASE NURTraceAbnormalNEGMercy Health St. Rita's Medical CenterComment on above:Performed By: #### MALINI, CMP, 3040-3, 96191-2, 1987-10, #### [facility] ([id number]) [address] [place] [address] [place] [address]CISGEAZ NURNegativeNormalNEGProGraham Regional Medical CenterComment on above:Performed By: #### ARACELISA, CMP, 3040-3, 30176-4, 1987-10, #### [facility] ([id number]) [address] [place] [address] [place] [address]TT NUR7.8Ticvmr0.0-8.5[facility] Vacavalley HospitalComment on above:Performed By: #### ARACELISA, CMP, 3040-3, 90967-2, 1987-10, #### [facility] ([id number]) [address] [place] [address] [id number] NURNegativeNormalNEGProGraham Regional Medical CenterComment on above:Performed By: #### MALINI, STEVE, 3040-3, 26511-6, 1987-10, #### [facility] ([id number]) [address] [place] [address] 43263JFAOOEDN GRAVITY NUR1.404Sirxmw0.003-1.035ProGraham Regional Medical CenterComment on above:Performed By: #### MALINI, STEVE, 3040-3, 40230-7, 1987-10, #### [facility] ([id number]) [address] [place] [address] [id number] NUR0.2 eu/dLNormal<1.1PFostoria City Hospital Comment on above:Performed By: #### MALINI, STEVE, 3040-3, 59544-7, 1987-10, #### [facility] ([id number]) [address] [place] [address] [id number] Clinical Summaryon [id number] Clinical SummaryED Clinical Summary [place] [id number] ED Clinical Summary Person Information Name: ANTONIA NOYOLA/[facility] Age: 39 Years : 1985 Sex: Female Language: Senegalese PCP: NONE, XXXX Marital Status: Visit Id: [...] 01:38:52 06/28/2024 01:38:52 06/28/2024 01:38:52 ADDRESS: [address] [place] [id number] [facility] DOC NOTES: MEDICAL INFORMATION: Prescriptions Given: Medications to Continue with No Changes Other Medications acetaminophen-oxycodone (Percocet 5 mg-325 mg oral tablet) 1 Tablets By Mouth every 8 hours for 3 Days. Refills: 0. diflunisal (diflunisal 500 mg Tab) 1 Tablets By Mouth every 12 hours. Refills: 0. PATIENT EDUCATION INFORMATION: Instructions: Abdominal Pain, Adult, Oykc-gz-Gezv Follow up: With: Address: When: [place] [address] [address] [facility] (1) In 3 days 07/01/2024 Comments: Please follow-up with your primary care doctor and VIDEO SYSTEM REPAIRER for further evaluation and management. Return to the ED for any new or worsening symptoms. With: Address: When: XXXX [facility] , [place] In 3 days DIAGNOSIS: Abdominal pain; NauseaNormalFisher Aquasco Medical CenterED Note-Physicianon [id number] Note-PhysicianED Note-Physician Basic Information Time Seen: Jordyn Willett DO 06/27/2024 23:52 Chief Complaint (R) sided ABD pain with radiation into back. States stage 4 endometriosis and recent hyster. Nasuea, no vomiting. Percocet and Toradol without relief. Seen 3 days ago with same complaint History of Present Illness Patient is a 39-year-old female with past medical history of endometriosis presenting to the ED forevaluation of right sided abdominal pain. Patient states the pain started 3 days ago was seen at this facility at that time workup at that time was negative was discharged home with pain medication. Patient states the pain is progressively worsening despite taking the Percocet, Toradol. Patient denies any fevers or chills. 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 Review of Systems A 10 point review [...] of Problems Differential Diagnosis: [] [facility] Data External documents reviewed: [] My [...] when reviewing her OARRS. I did review Clnisync patient was seen at both [place] and [place] today. Discussed with the patient she states [...] Unspecified abdominal pain) Nausea (R11.0: Nausea) Orders: acetaminophen-oxycodone, [...] Stop date 06/28/24 0:24:00 EST, STAT, Start date06/28/24 0:24:00 EST, 06/28/24 0:24:00 EST ondansetron, 4 [...] Inj, 15 mg, IV Push TO GO acetaminophen-oxycodone 325 mg - 5 mg, 1 EA, Oral Zofran 4 mg/2 mL Injection, 4 mg, IV Push Disposition Plan Discharge Prescription List Prescriptions No active prescription medications Follow-up With When Contact Information [facility] In 3 days 07/01/2024 [place] [address] Business (1) Additional Instructions: Please follow-up with your primary care doctor and VIDEO SYSTEM REPAIRER for further evaluation and management. Return to the ED for any new or worsening symptoms. XXXX NONE In 3 days [place] Additional Instructions: Patient Education Abdominal Pain, Adult, Bplw-cg-Ucyq Problem List/Past (more content not included)...NormalFisher Aquasco Medical CenterComment on above:Result Comment: Electronically Signed By: Jordyn Willett DO\.br\Date and Time Signed: 06/28/24 03:41 ESTED Patient Summaryon [id number] Patient SummaryED Patient Summary [address] [address] Patient Discharge Instructions Person Information Name: ANTONIA NOYOLA Age: 39 Years Arrival Date: 06/27/2024 21:46:23 Discharge Diagnosis: Abdominal pain; Nausea Primary Care Physician: SHAZIA, XXXX Provider Information Primary Provider: Jordyn Willett DO Advanced Judo Instructor:Shazia The exam and treatment you received in the Emergency Department were for an urgent problem and are not intended as complete care. It is important that you follow up with a doctor, nurse practitioner,or physician???s program assistant for ongoing care. If your symptoms become worse or you do not improve asexpected and you are unable to reach your usual health care provider, you should return to the Emergency Department. We are available 24 hours a day. ANTONIA NOYOLA has been given the following list of patient education materials, prescriptions and follow-up instructions: Follow-up Instructions: With: Address: When: [facility] [address] [place] [address] Business (1) In 3 days 07/01/2024 Comments: Please follow-up with your primary care doctor and VIDEO SYSTEM REPAIRER for further evaluation and management. Return to the ED for any new or worsening symptoms. With: Address: When: XXXX NONE , [place] In 3 days In the event that this physician does not participate in your insurance network, please consult with your insurance company to find a nearby participating provider. Patient Education Materials: Abdominal Pain, Adult, Qycj-lc-Dgdu A MESSAGE TO ALL PATIENTS REGARDING OPIOIDS PRESCRIPTION OPIOIDS: WHAT YOU NEED TO KNOW Prescription opioids can be used to help relieve asjiluyb-hd-sokfbg pain and are often prescribed following a [...] and Drug Administration (www.fda.gov/Boris (more content not included)...NormalSheltering Arms Hospital BMPon [id number] gap [Moles/Vol]14 mmol/LNormal6-16S[facility] Arms HospitalComment on above:Performed By: #### [id number] #### [facility] [address], [place] [address]Dkeouqy [Mass/Vol]10.3 mg/dLNormal8.9-11.1FWVUMedicine Barnesville HospitalComment on above:Performed By: #### [id number] #### [facility] [address], [place] [address]Mzrjdzyh [Moles/Vol]106 mmol/DLgaehe939-749IsfkpuSheltering Arms HospitalComment on above:Performed By: #### [id number] #### [facility] [address], [place] [address]NW1 [Moles/Vol]23 mmol/FQresjv96-73InxhjoSheltering Arms Hospital Comment on above:Performed By: #### [id number] #### [facility] [address], [place] [address]Mdgldwhtof [Mass/Vol]0.9 mg/dLNormal0.5-1.3FWVUMedicine Barnesville HospitalComment on above:Performed By: #### [id number] #### [facility] [address], [place] [address]Enkofzh [Mass/Vol]108 mg/kTGgftfx48-911HvddmaSheltering Arms HospitalComment on above:Performed By: #### [id number] #### [facility] [address], [place] [address]Vizvaqrcc [Moles/Vol]3.9 mmol/LNormal3.5-5.3FWVUMedicine Barnesville HospitalComment on above:Performed By: #### [id number] #### [facility] [address] [place] [address]Pqdszj [Moles/Vol]139 mmol/UVfzifw720-244CxrlwaSheltering Arms HospitalComment on above:Performed By: #### [id number] #### [facility] [address] [place] [address] 10235Kskm nitrogen [Mass/Vol]7 mg/dLNormal5-21Sheltering Arms HospitalComment on above:Performed By: #### [id number] #### [facility] [address] [place] [address]99[address]Ldra nitrogen/Creatinine [Mass ratio]8 No CriytBfg35-03WyoniaSheltering Arms HospitalComment on above:Performed By: #### [id number] #### [facility] [address] [place] [address]JGW w/ Auto Diffon 57-80-0172Soucbixrw/100 WBC (Bld)1.1 %Normal 0.0-2.0Sheltering Arms HospitalComment on above:Performed By: #### [id number] #### [facility] [address] [place] [address]Vfbvkaxxj/Leukocytes Auto (Bld) [Pure # fraction]0.1 E9/LNormal 0.0-0.2FWVUMedicine Barnesville HospitalComment on above:Performed By: #### [id number] #### [facility] [address] [place] [address]Oqbomottohw (Bld) [#/Vol]0.0 E9/LNormal0.0-0.5FWVUMedicine Barnesville HospitalComment on above:Performed By: #### [id number] #### [facility] [address] [place] [address]Kywaeyrlmmx/100 WBC (Bld)0.2 %Normal0.0-8.0S[facility] Arms HospitalComment on above:Performed By: #### [id number] #### [facility] [address] [place] [address] 57[address]Uwuaixslpih distribution width (RBC) [Ratio]19.8 %High10.9-14.2 [facility] HospitalComment on above:Performed By: #### [id number] #### [facility] [address] [place] [address] 240[address]Rrnijpfurv (Bld) [Volume fraction]37.8 %Cvqrgn86.0-46.0S[facility] HospitalComment on above:Performed By: #### [id number] #### [facility] [address] [place] [address] 90[address]Syaopgdxef (Bld) [Mass/Vol]12.0 g/sQSejdse44.0-16.0[facility] HospitalComment on above:Performed By: #### [id number] #### [facility] [address] [place] [address]Apzqlugyfaz Auto Ql (Bld)PRESENTInvalid Interpretation Code [facility] HospitalComment on above:Performed By: #### [id number] #### [facility] [address] [place] [address] 212[address]Kmxfsseprfb (Bld) [#/Vol]1.7 E9/LNormal1.0-4.0S[facility] HospitalComment on above:Performed By: #### [id number] #### [facility] [address] [place] [address] 56[address]Ewdxmpggmiv/100 WBC (Bld)23.6 %Ljwjzh20.0-50.0S[facility] HospitalComment on above:Performed By: #### [id number] #### [facility] [address] [place] [address] 77343XCK (RBC) [Entitic mass]22.8 pgLow27.0-34.0S[facility] Arms HospitalComment on above:Performed By: #### [id number] #### [facility] [address], [place] [address]AKWA (RBC) [Mass/Vol]31.8 g/dLCigtty27.4-36.0S[facility] HospitalComment on above:Performed By: #### [id number] #### [facility] [address] [place] [address] 48[address]FGH (RBC) [Entitic vol]71.7 fLLow80.0-100.0S[facility] HospitalComment on above:Performed By: #### [id number] #### [facility] [address] [place] [address]Iwygjlcbiv Ql (Bld)PRESENTInvalid Interpretation CodeSheltering Arms HospitalComment on above:Performed By: #### [id number] #### [facility] [address] [place] [address] 44[address]Lsvahsnol (Bld) [#/Vol]0.3 E9/LNormal0.2-1.0S[facility] HospitalComment on above:Performed By: #### [id number] #### [facility] [address] [place] [address] 23[address]Yukebbducfj (Bld) [#/Vol]5.0 E9/LNormal2.0-7.5FWVUMedicine Barnesville HospitalComment on above:Performed By: #### [id number] #### [facility] [address] [place] [address] 45[address]Wmsmarxoikr/100 WBC (Bld)71.3 %Xxqzby25.0-75.0S[facility] HospitalComment on above:Performed By: #### [id number] #### [facility] [address] [place] [address]32[address]Sjenkgyd929.0 E9/KKjak868.0-500.0[facility] Comment on above:Performed By: #### [id number] #### [facility] [address] [place] [address]94[address]Fpscsrwe mean volume (Bld) [Entitic vol]7.5 fLNormal6.4-10.8 [facility] HospitalComment on above:Performed By: #### [id number] #### [facility] [address], [place] [address]IBJ (Bld) [#/Vol]5.3 E12/LNormal4.3-5.9S[facility] HospitalComment on above:Performed By: #### [id number] #### [facility] [address], [place] [address]DQU size Nom (Bld)SEE MORPHOLOGYInvalid Interpretation Code [facility] HospitalComment on above:Performed By: #### [id number] #### [facility] [address] [place] [address]RMX corrected for nucl RBC Auto (Bld) [#/Vol]7.0 E9/LNormal 4.0-11.0S[facility] HospitalComment on above:Performed By: #### [id number] #### [facility] [address], [place] [address]UOE with Diffon 25-25-1052Ddvyacczj (Bld) [#/Vol]0.09 10*3/uL [facility] HealthBasophils/100 WBC (Bld)1 %0 - 2 %[facility] HealthEosinophils (Bld) [#/Vol]0.06 10*3/uLBon Secours Mercy Health Eosinophils/100 WBC (Bld)1 %1 - 4 %[facility] HealthErythrocyte distribution width (RBC) [Ratio]17.9 %High11.8 - 14.4 %[facility] Hematocrit (Bld) [Volume fraction]35.1 %Low36.3 - 47.1 %[facility] Hemoglobin (Bld) [Mass/Vol]10.6 g/dLLow11.9 - 15.1 g/dLBon Secours Mercy Health Immature granulocytes (Bld) [#/Vol][facility] HealthImmature granulocytes/100 WBC (Bld)0 %0[facility] HealthInterpretation and review of laboratory resultsAbnormalBon Secours Mercy HealthLymphocytes/100 WBC (Bld)50 %High24 - 43 %[facility] CenterLymphocytes/100 WBC (Bld)3.25 %[facility] CampusH (RBC) [Entitic mass]22.3 pgLow25.2 - 33.5 pgBon [facility] HospitalHC (RBC) [Mass/Vol]30.2 g/dL28.4 - 34.8 g/dLBon [facility] HospitalV (RBC) [Entitic vol]73.9 fLLow82.6 - 102.9 fLMountain View Regional Medical Center Monocytes/100 WBC (Bld)7 %3 - 12 %[facility] CenterMonocytes/100 WBC (Bld)0.48 %[facility] CenterNeutrophils/100 WBC (Bld)41 %36 - 65 %[facility] CenterNucleated RBC/100 WBC (Bld) [Ratio]0.0 %0.0 per 100 WBCMountain View Regional Medical CenterPlatelet mean volume (Bld) [Entitic vol]9.3 fL8.1 - 13.5 fL [facility] Medical CenterPlatelets (Bld) [#/Vol]533 10*3/uLHighBon [facility] HospitalRBC (Bld) [#/Vol]4.75 10*6/uL3.95 - 5.11 m/uLBon [facility] Segmented neutrophils/100 WBC (Bld)2.65 %[facility] Medical CenterWBC other (Bld) [#/Vol]6.5Bon SecRiver Falls Area HospitalAbs. Basophil0.09 k/uLNormal0.00-0.20[facility] Medical CenterComment on above:Performed By: #### STEVE, CP, LIP #### [address] [place] [address] Embedded Case Manager: Sanford Davis.Imm.Granulocyte<0.78Coxfbu7.00-0.30[facility] Medical CenterComment on above:Performed By: #### STEVE, CP, LIP #### [address] [place] [address] Embedded Case Manager: Sanford Davis.Neutrophil (Seg)2.65 k/uLNormal1.50-8.10[facility] Medical CenterComment on above:Performed By: #### CDP, CP, LIP #### [address] [place] [address] Embedded Case Manager: Jennifer Freire MDBasophils/100 WBC (Bld)1 %Normal0-2MercOhioHealth Marion General Hospital HospitalComment on above:Performed By: #### CDP, CP, LIP #### [address] [place] [address] Embedded Case Manager: Jennifer Freire MDEosinophils (Bld) [#/Vol]0.06 10*3/uLNormal 0.00-0.44[facility] HospitalComment on above:Performed By: #### CDP, CP, LIP #### [address] [place], [place] [address] Embedded Case Manager: VIVIENNE Davisosinophils/100 WBC (Bld)1 %Normal1-4[facility] Medical CenterComment on above:Performed By: #### CDP, CP, LIP #### [address] [place] [address] Embedded Case Manager: Jennifer Freire MDErythrocyte distribution width (RBC) [Ratio]17.9 % High11.8-14.4[facility] Medical CenterComment on above:Performed By: #### CDP, CP, LIP #### [address] [place] [address] Embedded Case Manager: Jennifer Freire MDHematocrit (Bld) [Volume fraction]35.1 %Low 36.3-47.1MercOhioHealth Marion General Hospital HospitalComment on above:Performed By: #### CDP, CP, LIP #### [address] [place], [place] [address] Embedded Case Manager: Jennifer Freire MDHemoglobin (Bld) [Mass/Vol]10.6 g/dLLow11.9-15.[address] HospitalComment on above:Performed By: #### CDP, CP, LIP #### [address] [place] [address] Embedded Case Manager: Darrin Davismature granulocytes/100 WBC (Bld)0 %Cmzdbz5Satkw Tiffin HospitalComment on above:Performed By: #### CDP, CP, LIP #### [address] [place], [facility] Embedded Case Manager: Jennifer Freire MDLymphocytes (Bld) [#/Vol]3.25 10*3/uLNormal 1.10-3.70MerSumma Health Wadsworth - Rittman Medical Center HospitalComment on above:Performed By: #### CDP, CP, LIP #### [address] [place], [facility] Embedded Case Manager: Orlin Davismphocytes/100 WBC (Bld)50 %Vmpu65-79Rqhlx [facility]in HospitalComment on above:Performed By: #### CDP, CP, LIP #### [address] [place] [id number] Embedded Case Manager: VAENSSA DavisCH (RBC) [Entitic mass]22.3 pgLow25.2-33.5MerSumma Health Wadsworth - Rittman Medical Center HospitalComment on above:Performed By: #### CDP, CP, LIP #### [address] [place], [place] [id number] Embedded Case Manager: ANTONIA DavisC (RBC) [Mass/Vol]30.2 g/uMSrwkti67.4-34.8MerSumma Health Wadsworth - Rittman Medical Center HospitalComment on above:Performed By: #### CDP, CP, LIP #### [address] [place] [address] Embedded Case Manager: VANESSA DavisCV (RBC) [Entitic vol]73.9 fLLow82.6-102.9[facility] Medical CenterComment on above:Performed By: #### CDP, CP, LIP #### [address] [place] [address] Embedded Case Manager: VANESSA Davisonocytes (Bld) [#/Vol]0.48 10*3/uLNormal0.10-1.20 [facility] Medical CenterCommymichigan medical center sault on above:Performed By: #### CDP, CP, LIP #### [address] [place] [address] Embedded Case Manager: VANESSA Davisonocytes/100 WBC (Bld)7 %Normal3-12[facility] Medical CenterComment on above:Performed By: #### CDP, CP, LIP #### [address] [place] [address] Embedded Case Manager: Jennifer Freire MDNeutrophil (Seg)41 %Cgapgu38-02QizmlMetrohealth Main Campus Medical CenterComment on above:Performed By: #### CDP, CP, LIP #### [address] [place] [address] Embedded Case Manager: Jennifer Freire MDNRBC Automated0.0 per 100 WBCNormal0.0[facility] Medical CenterComment on above:Performed By: #### CDP, CP, LIP #### [address] [place] [address] Embedded Case Manager: MIGUEL ÁNGEL Davislatelet mean volume (Bld) [Entitic vol]9.3 fL Normal8.1-13.5[facility] Medical CenterComment on above:Performed By: #### CDP, CP, LIP #### [address] [place], [place] [phone] Embedded Case Manager: Ajit Davistesalem hospital ([facility]) [#/Vol]533 10*3/bKGybj053-696QlfiaMetrohealth Main Campus Medical CenterComment on above:Performed By: #### CANDICE WILSON, LIP #### [facility] [address] [place], [place] [id number] Embedded Case Manager: PRITI Davis ([facility]) [#/Vol]4.75 10*6/uLNormal3.95-5.11[facility] HospitalComment on above:Performed By: #### CANDICE WLISON, LIP #### [facility] [address] [place] [address] Embedded Case Manager: DAVID Davis ([facility]) [#/Vol]6.5 10*3/uLNormal3.5-11.3MParkview Health HospitalComment on above:Performed By: #### CANDICE WILSON, LIP #### [facility] [address] [place] [address] [place] [address] Embedded Case Manager: JAMESON DavisHEMISTRYOrdered By: SYSTEM SYSTEM on 06-27-2024 Albumin [Mass/Vol]5.0 g/dLNormal3.3 - 5.0 gm/dLRemisol ChemAlbumin/Globulin [Mass ratio]1.4 {ratio}Normal1.1 - 2.2Remisol ChemALP [Catalytic activity/Vol]80 [iU]/nKjwblu21 - 98 Int._Unit/LRemisol ChemALT No additional P-5'-P [Catalytic activity/Vol]15 [iU]/dNormal6 - 46 Int._Unit/LRemisol ChemAnion gap [Moles/Vol] 14 mmol/LNormal6 - 16 mEq/LRemisol ChemAST [Catalytic activity/Vol]18 [iU]/d Normal5 - 43 Int._Unit/LRemisol ChemBilirubin [Mass/Vol]0.6 mg/dLNormal0.0 - 1.1 mg/dLRemisol ChemBilirubin.direct [Mass/Vol]0.0 mg/dLNormal0.0 - 0.4 mg/dL Remisol ChemBilirubin.indirect [Mass or moles/Vol]0.6 mg/dLNormal0.1 - 0.9 mg/dL Remisol ChemCalcium [Mass/Vol]10.3 mg/dLNormal8.9 - 11.1 mg/dLRemisol Chem Chloride [Moles/Vol]106 mmol/LEppicg172 - 111 mmol/LRemisol ChemCO2 [Moles/Vol] 23 mmol/KEooadv82 - 31 mmol/LRemisol ChemCreatinine [Mass/Vol]0.9 mg/dLNormal0.5 - 1.3 mg/dLRemisol MirhtEJH22 mL/min/1.73 v6Vyceqw>=59mL/min/1.73 g7Crtyuvv ChemGlobulin (S) [Mass/Vol]3.6 g/dLNormal1.4 - 4.0 gm/dLRemisol ChemGlucose [Mass/Vol]108 mg/qDFcrnrj59 - 199 mg/dLRemisol ChemLipase [Catalytic activity/Vol]24 U/QQsfswj90 - 58 unit/LRemisol ChemPotassium [Moles/Vol]3.9 mmol/LNormal3.5 - 5.3 mmol/LRemisol ChemProtein [Mass/Vol]8.6 g/dLHigh6.0 - 7.8 gm/dLRemisol ChemSodium [Moles/Vol]139 mmol/NLjfois567 - 145 mmol/LRemisol Chem Urea nitrogen [Mass/Vol]7 mg/dLNormal5 - 21 mg/dLRemisol ChemUrea nitrogen/Creatinine [Mass ratio]8 mg/mgLow10 - 20Remisol ChemCMPon 06-27-2024 Albumin [Mass/Vol]4.2 g/dL3.5 - 5.2 g/dLBon [facility] HospitalAlbumin/Globulin [Mass ratio]1.3 {ratio}1.0 - 2.5Bon [facility] HospitalALP [Catalytic activity/Vol]77 U/L35 - 104 U/LBon [facility] HealthALT [Catalytic activity/Vol]19 U/L10 - 35 U/LBon [facility] HospitalAnion gap [Moles/Vol]11 mmol/L9 - 16 mmol/LBon [facility] HealthAST [Catalytic activity/Vol]24 U/L10 - 35 U/LBon [facility] HealthBilirubin [Mass/Vol]mg/dL0.00 - 1.20 mg/dLBon Secours [facility]y HealthCalcium [Mass/Vol]9.4 mg/dL8.6 - 10.4 mg/dLBon [facility] HealthChloride [Moles/Vol]105 mmol/L98 - 107 mmol/LBon SecWashington Rural Health Collaborativey HealthCO2 [Moles/Vol]24 mmol/L20 - 31 mmol/LBon [facility] HealthCreatinine [Mass/Vol] 0.7 mg/dL0.50 - 0.90 mg/dLBon [facility] HealthEst, Glom Filt Rate- PINFBon Kettering Memorial HospitalComment on above: These results are not intended [...] therapy that affects renal tubular secretion. Glucose [Mass/Vol]79 mg/dL74 - 99 mg/dLBon [facility] Hospitalours [facility] HealthPotassium [Moles/Vol]3.7 mmol/L3.7 - 5.3 mmol/LBon [facility] HospitalComment on above: Specimen hemolysis has exceeded the interference as defined by Ji. Value may be falsely increased. Suggest recollection if clinically indicated. Protein [Mass/Vol]7.4 g/dL6.6 - 8.7 g/dLBon [facility] HealthSodium [Moles/Vol]140 mmol/L136 - 145 mmol/LBon [facility] HealthUrea nitrogen [Mass/Vol]8 mg/dL6 - 20 mg/dLBon [facility] HealthUrea nitrogen/Creatinine [Mass ratio]11 mg/mg9 - 20Bon [facility] HospitalComp Metabolic Profon 15-00-7368Qifooms [Mass/Vol]4.2 g/dLNormal3.5-5.2Mer[facility] Griffin HospitalComment on above:Performed By: #### CDP, CP, LIP #### [address] [place] [address] Embedded Case Manager: Jennifer Freire MDAlbumin/Glob Ratio1.2Enduam2.0-2.5MerSumma Health Wadsworth - Rittman Medical Center HospitalComment on above:Performed By: #### CDP, CP, LIP #### [address] [place] [address] Embedded Case Manager: Rafy Daviskaline Phos77 U/ZSxoerh31-035Anuuj [facility]iffin HospitalComment on above:Performed By: #### CDP, CP, LIP #### [address] [place] [address] Embedded Case Manager: Jennifer Freire MDALT [Catalytic activity/Vol]19 U/XMhxqiq73-00Sfkbg [facility]in HospitalComment on above:Performed By: #### CDP, CP, LIP #### [address] [place] [address] Embedded Case Manager: Jennifer Freire MDAnion gap [Moles/Vol]11 mmol/LNormal9-16[facility] HospitalComment on above:Performed By: #### CDP, CP, LIP #### [address] [place] [address] Embedded Case Manager: Jennifer Freire MDAST [Catalytic activity/Vol]24 U/RLeztyr55-54Eaoyq [facility] HospitalComment on above:Performed By: #### CDP, CP, LIP #### [address] [place] [address] Embedded Case Manager: Jennifer Freire MDBilirubin [Mass/Vol]mg/dLNormal0.00-1.20MerSumma Health W[facility] - Ritt[facility] Center HospitalComment on above:Performed By: #### CDP, CP, LIP #### [address] [place] [address] Embedded Case Manager: Jennifer Freire MDBUN/CRE Spkbf96Zsrzew0-48Nqanz [facility] Comment on above:Performed By: #### CANDICE WILSON, LIP #### [address] [place], [place] [phone] Embedded Case Manager: JAMESON Davisalcium [Mass/Vol]9.4 mg/dLNormal8.6-10.4[facility] Medical CenterComment on above:Performed By: #### CANDICE WILSON, LIP #### [address] [place], [place] 8[address]83 Embedded Case Manager: JAMESON Davishloride [Moles/Vol]105 mmol/HWgerhg60-056VjtnkMetrohealth Main Campus Medical CenterComment on above:Performed By: #### CANDICE WILSON, LIP #### [address] [place], [place] [phone] Embedded Case Manager: JAMESON DavisO2 [Moles/Vol]24 mmol/IGgaela08-67VfjebMetrohealth Main Campus Medical CenterComment on above:Performed By: #### CANDICE WILSON, LIP #### [address] [place], [place] [address]83 Embedded Case Manager: JAMESON Davisreatinine [Mass/Vol]0.7 mg/dLNormal0.50-0.90[facility] Medical CenterComment on above:Performed By: #### STEVE CP, LIP #### [address] [place], [place] [phone] Embedded Case Manager: Jennifer Freire MDGFR/1.73 sq M.predicted among non-blacks MDRD (S/P/Bld) [Vol rate/Area]mL/min/{1.73_m2}Normal>60[facility] Medical CenterComment on above:Result Comment: These results are not intended for [...] or following therapy that affects renal tubular secretion.Performed By: #### CDP, CP, LIP #### [address] [place], [place] 023[address]83 Embedded Case Manager: Jennifer Freire MDGlucose [Mass/Vol]79 mg/eKTokchi19-60Mezlj [facility]avinia HospitalComment on above:Performed By: #### CDP, CP, LIP #### [address] [place] [address] Embedded Case Manager: MIGUEL ÁNGEL Davisotassium [Moles/Vol]3.7 mmol/LNormal3.7-5.3Mercy Lavinia HospitalComment on above:Result Comment: Specimen hemolysis has exceeded the interference as defined by Ji. Value may be falsely increased. Suggest recollection if clinically indicated.Performed By: #### STEVE CP, LIP #### [address] [place] [address] Embedded Case Manager: MIGUEL ÁNGEL Davisrotein [Mass/Vol]7.4 g/dLNormal6.6-8.7MerSumma Health Wadsworth - Rittman Medical Center HospitalComment on above:Performed By: #### STEVE CP, LIP #### [address] [place] [address] Embedded Case Manager: BRIE Davisodium [Moles/Vol]140 mmol/KOtlbjs077-117Vgffj [facility]in HospitalComment on above:Performed By: #### CDP, CP, LIP #### [address] [place] [address] Embedded Case Manager: Jennifer Freire MDUrea nitrogen [Mass/Vol]8 mg/dLNormal6-20MerSumma Health W[facility] - [facility] Center HospitalComment on above:Performed By: #### STEVE, CP, LIP #### [address] [place] [address] Embedded Case Manager: Olivia Davis Blueon 15-24-4463Hzns Collected PlasmaYes Invalid Interpretation [facility] HospitalComment on above:Performed By: #### [id number] #### [facility] [address] [place], [place] [address]OVDFUKCBEZSicykhq By: SYSTEM SYSTEM on 59-53-6213Vyitirusy/100 WBC (Bld)1.1 %Normal0.0 - 2.0 %Remisol HemeBasophils/Leukocytes Auto (Bld) [Pure # fraction]0.1 E9/LNormal0.0 - 0.2 E9/LRemisol HemeEosinophils (Bld) [#/Vol]0.0 E9/LNormal0.0 - 0.5 E9/LRemisol HemeEosinophils/100 WBC (Bld)0.2 %Normal0.0 - 8.0 %Remisol HemeErythrocyte distribution width (RBC) [Ratio]19.8 %High10.9 - 14.2 %Remisol HemeHematocrit (Bld) [Volume fraction]37.8 %Eaqllw07.0 - 46.0 % Remisol HemeHemoglobin (Bld) [Mass/Vol]12.0 g/rHDgoizh50.0 - 16.0 gm/dLRemisol HemeHypochromia Auto Ql (Bld)PRESENT *NA* (06/27/24 11:07 PM)Invalid Interpretation CodeRemisol HemeLymphocytes (Bld) [#/Vol]1.7 E9/LNormal1.0 - 4.0 E9/LRemisol HemeLymphocytes/100 WBC (Bld)23.6 % Doqhwj44.0 - 50.0 %Remisol HemeMCH (RBC) [Entitic mass]22.8 pgLow27.0 - 34.0 pg Remisol HemeMCHC (RBC) [Mass/Vol]31.8 g/tAAmmuna18.4 - 36.0 gm/dLRemisol HemeMCV (RBC) [Entitic vol]71.7 fLLow80.0 - 100.0 fLRemisol HemeMicrocytes Ql (Bld) PRESENT *NA* (06/27/24 11:07 PM)Invalid Interpretation CodeRemisol HemeMonocytes (Bld) [#/Vol] 0.3 E9/LNormal0.2 - 1.0 E9/LRemisol HemeMonocytes/100 WBC (Bld)3.8 %Low4.0 - 14.0 %Remisol HemeNeutrophils (Bld) [#/Vol]5.0 E9/LNormal2.0 - 7.5 E9/LRemisol HemeNeutrophils/100 WBC (Bld)71.3 %Flvwad04.0 - 75.0 %Remisol XntpQhrknvkv891.0 E9/ZZknf402.0 - 500.0 E9/LRemisol HemePlatelet mean volume (Bld) [Entitic vol] 7.5 fLNormal6.4 - 10.8 fLRemisol HemeRBC (Bld) [#/Vol]5.3 E12/LNormal4.3 - 5.9 E12/LRemisol HemeRBC size Nom (Bld)SEE MORPHOLOGY *NA* (06/27/24 11:07 PM)Invalid Interpretation CodeRemisol HemeWBC corrected for nucl RBC Auto (Bld) [#/Vol]7.0 E9/LNormal4.0 - 11.0 E9/LRemisol HemeHep Func Panelon 99-89-3528Leucfed [Mass/Vol]5.0 g/dLNormal3.3-5.0[facility] Comment on above:Performed By: #### [id number] #### [facility] [address], [place] [address]Nauapsj/Globulin (S) [Mass conc ratio]1.7Pmzsqe5.1-2.2[facility] Medical CenterComment on above:Performed By: #### [id number] #### [facility] [address], [place] [address]HIO [Catalytic activity/Vol]80 Int._Unit/KCqlizm58-86ElydzaSheltering Arms HospitalComment on above:Performed By: #### [id number] #### [facility] [address], [place] [address]EVO No additional P-5'-P [Catalytic activity/Vol]15 Int._Unit/L Normal6-46[facility] HospitalComment on above:Performed By: #### [id number] #### [facility] [address] [place] [address]SWH [Catalytic activity/Vol]18 Int._Unit/LNormal5-43[facility] HospitalComment on above:Performed By: #### [id number] #### [facility] [address] [place] [address] 18[address]Yqquixvng [Mass/Vol]0.6 mg/dLNormal0.0-1.1FWVUMedicine Barnesville HospitalComment on above:Performed By: #### [id number] #### [facility] [address] [place] [address]Vpuiugelq.direct [Mass/Vol]0.0 mg/dLNormal0.0-0.4FWVUMedicine Barnesville HospitalComment on above:Performed By: #### [id number] #### [facility] [address] [place] [address]Soszzpkcf.indirect [Mass or moles/Vol]0.6 mg/dLNormal0.1-0.9 [facility] HospitalComment on above:Performed By: #### [id number] #### [facility] [address] [place] [address]Ohudtpkj (S) [Mass/Vol]3.6 g/dLNormal1.4-4.0[facility] HospitalComment on above:Performed By: #### [id number] #### [facility] [address] [place] [address] 67[address]Udivyjl [Mass/Vol]8.6 g/dLHigh6.0-7.8[facility] HospitalComment on above:Performed By: #### [id number] #### [facility] [address] [place] [address]Jdghsg Acidon 85-36-2272Vauwido (BldV) [Moles/Vol]1.7 mmol/L0.5 - 2.2 mmol/LBon Sanford USD Medical CenterLactate [Moles/Vol] 1.7 mmol/LNormal0.5-2.2[facility] HospitalComment on above:Performed By: #### LACTIC #### [facility] [address] [place] [address] Embedded Case Manager: Jennifer Freire MDLipaseon 02-43-3776Eabyfg [Catalytic activity/Vol] 55 U/L13 - 60 U/LBon [facility] HospitalLipase [Catalytic activity/Vol]55 U/L Yskmbl25-35QijfuMetrohealth Main Campus Medical CenterComment on above:Performed By: #### CDP, CP, LIP #### [facility] [address] [place] [address] Embedded Case Manager: Jennifer Freire MDLipase Levelon 15-66-4647Pyxnzn [Catalytic activity/Vol]24 U/SLmesvi29-31[facility] Medical CenterComment on above: Performed By: #### [id number] #### [facility] [address] [place], [place] [address]Kvacprmkbjh Urinalysison 43-97-5558Geqapqgm LM Ql (Urine sed)2+ AbnormalNoneBon [facility] HospitalCharacter (U)MICROSCOPIC PERFORMED ON UNSPUN URINEAbnormalNOT REQ.Bon [facility] HospitalCharacter (U)Quantity not sufficient.AbnormalNOT REQ.Bon [facility] HospitalEpithelial cells LM.HPF (Urine sed) [#/Area]2 TO 5Bon [facility] HospitalInterpretation and review of laboratory resultsAbnormalBon SecWest [facility] HealthMucus Ql (Urine sed)2+Abnormal NoneBon SecJ.W. Ruby Memorial HospitalRBC LM.HPF (Urine sed) [#/Area]0 TO 2[facility] HospitalWBC LM.HPF (Urine sed) [#/Area]0 TO 2[facility] HospitalBon SecWest [facility] HealthNo Panel Informationon 91-03-6316Znr [facility] HospitalUA w/Reflex Cultureon 72-68-1584Ggopsxkxz, SemiQt,UrNegativeNormalNEGMerSumma Health Wadsworth - Rittman Medical Center HospitalComment on above:Performed By: #### UMICAO, UAX #### [facility] [address] [place] [address] [place] [address] Embedded Case Manager: Stacy Davis, UrineNegativeHermann Area District HospitalalGuernsey Memorial Hospital Comment on above:Performed By: #### UMICAO, UAX #### [facility] [address] [place] [address] [place] [address] Embedded Case Manager: JAMESON Davislarity ()ClearNormalCLEARMetrohealth Main Campus Medical Center Comment on above:Performed By: #### CARLOZICAO, UAX #### [facility] [address] [place] [address] [place] [address] Embedded Case Manager: JAMESON Davisolor (U)YellowNormalYELMerSilver Hill Hospital Comment on above:Performed By: #### CARLOZICAO, UAX #### [facility] [address] [place] [address] [place] [address] Embedded Case Manager: Jennifer Freire MDGlucose Ql (U)NegativeNormalNEGMerSilver Hill HospitalComment on above:Performed By: #### CARLOZICAO, UAX #### [facility] [address] [place] [address] [place] [address] Embedded Case Manager: Jennifer Freire MDKetones Ql (U)NegativeNormalNEGMerSilver Hill HospitalComment on above:Performed By: #### UMICAO, UAX #### [facility] [address] [place] [address] [place] [address] Embedded Case Manager: Jennifer Freire MDLeukocyte esterase Test strip Ql (U)TRACEAbnormal NEGMetrohealth Main Campus Medical CenterComment on above:Performed By: #### UMICAO, UAX #### [facility] [address] [place] [address] Dr[place], [place] [address]209[address] Embedded Case Manager: Jennifer Freire MDNitrite,UrNegativeNormalNEGMetrohealth Main Campus Medical Center Comment on above:Performed By: #### MARCELA, UAX #### [facility] [address] [place] [address] Dr[place], [place] [phone] Embedded Case Manager: MIGUEL ÁNGEL Davis,Ur6.6Tvibdz5.0-9.0[facility] Medical CenterComment on above:Performed By: #### MARCELA, UAX #### [facility] [address] [place] [address] [place] [address] Embedded Case Manager: MIGUEL ÁNGEL Davisrotein Ql (U)NegativeNormalNEGMetrohealth Main Campus Medical CenterComment on above:Performed By: #### MARCELA, UAX #### [address] [place], [place] [phone] Embedded Case Manager: Valerio Davis. [place],Ur>1.726Boap5.010-1.020[facility] Medical CenterComment on above:Performed By: #### MARCELA UAX #### [address] [place], [place] [address]83 Embedded Case Manager: Edwige Davisbilinogen,UrNormalNormal0.0-1.0[facility] Medical CenterComment on above:Performed By: #### MARCELA UAX #### [facility] [address] [place] [address] Dr. [place], [place] [phone] Embedded Case Manager: Jennifer Freire MDUrinalysis with Reflex to Cultureon 06-27-2024 Bilirubin Ql (U)NegativeNEGATIVEBon SecJ.W. Ruby Memorial HospitalClarity (U)ClearClearBon SecJ.W. Ruby Memorial HospitalColor (U)YellowYellowBon [facility] HospitalGlucose Test strip (U) [Mass/Vol]NegativeNEGATIVE mg/dLBon [facility] HospitalHemoglobin Auto test strip Ql (U)NegativeNEGATIVEBon [facility] HospitalInterpretation and review of laboratory resultsAbnormalBon [facility] HospitalKetones (U) [Mass/Vol]NegativeNEGATIVE mg/dLBon [facility] HospitalLeukocyte esterase Test strip Ql (U)TRACEAbnormalNEGATIVEBon [facility] HospitalNitrite Ql (U)Negative NEGATIVEBon [facility] HospitalpH (U)6.0 [pH]5.0 - 9.0[facility] Protein (U) [Mass/Vol]NegativeNEGATIVE mg/dLBon [facility] HospitalSpecific gravity (U) [Rel density]High1.010 - 1.020Bon [facility] HospitalUrobilinogen Qn (U)Normal0.0 - 1.0 EU/dLBon [facility] Urinalysis,Microon 69-81-3834Txbsbctt2+AbnormalQUAIL RUN BEHAVIORAL HEALTHEMeSharon HospitalComment on above:Performed By: #### MARCELA UAX #### [facility] [address] [place] [address] [address] [place], [place] [phone] Embedded Case Manager: Jennifer Freire MDEpithelial cells LM Ql (Urine sed)2 TO 9Akofhx3-93 [facility] Medical CenterComment on above:Performed By: #### BEE MEDRANOX #### [facility] [address] [place] [address] [place] [address] Embedded Case Manager: VANESSA Davisucus Strands2+[facility] Comment on above:Performed By: #### MARCELA UAX #### [facility] [address] [place] [address] Dr. [place], [place] [phone] Embedded Case Manager: Jennifer Freire MDOther ObservationsMICROSCOPIC PERFORMED ON UNSPUN URINEAbnormalNREQMetrohealth Main Campus Medical CenterComment on above:Result Comment: Quantity not sufficient.Performed By: #### MARCELA, UAX #### [facility] [address] [place] [address] [place] [address] Embedded Case Manager: Jennifer Freire MDUrine RBC's0 TO 1Amtbvo3-7XlkeiTrumbull Regional Medical Center Comment on above:Performed By: #### ASHLEY MEDRANO #### [facility] [address] [place] [address] Embedded Case Manager: Jennifer Freire MDEnglewood Hospital And Medical Center WBC's0 TO [address] [place] [address] Comment on above:Performed By: #### BEE MEDRANOX #### [facility] [address] [place] [address] Embedded Case Manager: Jennifer Freire MDeGFRon 85-32-6340vOSE83 mL/min/1.73 d4Hnxslb>=59 [facility] HospitalComment on above:Performed By: #### [id number] #### [facility] [address] [place], [place] [address]Qbwzpm Summaryon 03-78-8390Iivdqv SummaryMLBase 64 IxsqkxbcJCh2rQh+PGhlYWQ+ZK4SPRMbC12aeVFpwW2fF5GCWRiVWyhiNWTXEWdNUfZzdpSsGQ3kgERk ZXJu [file] b2x (more content not included)...[facility] 95-30-6827ONF [Mass/Vol]0.5 mg/dLNormal<=1.9Fisher [facility] Medical CenterComment on above: Performed By: #### [id number] #### [facility] [address], [place] [address]AR Abdomen/Pelvis w/o Contraston 34-14-5740VK Abdomen/Pelvis w/o ContrastExam Date/Time: 06/24/2024 23:48 EST Reason for Exam: [...] pathologically enlarged lymph nodes. Vasculature: No aneurysm. Mesentery/peritoneum/retroperitoneum: No ascites, organized fluid collection, inflammatory changes, [...] Given? No Oral contrast amount in ml's: 0NormalFisher [facility] Hospital CenterED Clinical Summaryon 77-44-2894BQ Clinical SummaryED Clinical Summary [place] [address] ED Clinical Summary Person Information Name: ANTONIA NOYOLA/[facility] Age: 39 Years : 1985 Sex: Female Language: Senegalese PCP: NONE, XXXX Marital Status: Visit Id: [...] 06/25/2024 02:50:14 ADDRESS: [address] [place] [id number] PHYS DOC NOTES: MEDICAL INFORMATION: Prescriptions Given: New Medications [facility]/pharmacy #[id number], [address], [place] [id number], [phone] acetaminophen-oxycodone (Percocet 5 mg-325 mg oral tablet) 1 [...] Adult Follow up: With: Address: When: [address] [place] [phone] Business (1) In 3 days 06/28/2024 DIAGNOSIS: Abdominal pain, acuteNormalFisher Aquasco Medical CenterED Note-Physicianon 75-12-5217DN Note-PhysicianED Note-Physician Basic Information Time Seen: Ritesh Heath [...] denies any nausea vomiting or diarrhea. She deniesany urinary symptoms. 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 Discussed return precautions. Patient was discharged in stable condition. Shared decision making: As above Code status: N/A Assessment/Plan Abdominal pain, acute (R10.9: Unspecified abdominal pain) Ordered: acetaminophen-oxycodone, 1 tab(s), [...] In 3 days 06/28/2024 EST [address] [place] [id number]- Business (1) Additional Instructions: Patient Education Abdominal Pain, Adult Problem List/Past Medical History Ongoing No chronic problems Historical Endometriosis Ovarian cyst Procedure/Surgical History Hysterectomy. Medications Inpatient HYDROmorphone 1 mg/mL injec (more content not included)...[facility]carawas HospitalComment on above:Result Comment: Electronically Signed By: Ritesh Heath DO\.br\Date and Time Signed: 06/25/24 02:44 ESTED Patient Summaryon [id number] Patient SummaryED Patient Summary [address] [address] Patient Discharge Instructions Person Information Name: ANTONIA NOYOLA Age: 39 Years Arrival Date: 06/24/2024 19:23:55 Discharge Diagnosis: Abdominal pain, acute Primary Care Physician: NONE, XXXX Provider Information Primary Provider: Ritesh Heath DO Advanced Judo Instructor:None The exam and treatment you received in the Emergency Department were for an urgent problem and are not intended as complete care. It is important that you follow up with a doctor, nurse practitioner,or physician???s program assistant for ongoing care. If your symptoms become worse or you do not improve asexpected and you are unable to reach your usual health care provider, you should return to the Emergency Department. We are available 24 hours a day. ANTONIA NOYOLA has been given the following list of patient education materials, prescriptions and follow-up instructions: Follow-up Instructions: With: Address: When: Javyedjuan daniel [place] [address] Business (1) In 3 days 06/28/2024 In the event that this physician does not participate in your insurance network, please consult with your insurance company to find a nearby participating provider. Patient Education Materials: Abdominal Pain, Adult A MESSAGE TO ALL PATIENTS REGARDING OPIOIDS PRESCRIPTION OPIOIDS: WHAT YOU NEED TO KNOW Prescription opioids can be used to help relieve ktqjoaqf-kg-gquyhf pain and are often prescribed following a [...] guidance from the Food and Drug Administration (www.fda.gov/Drugs/ResourcesForYou). ??? Visit www.cdc.gov/drugoverdose to learn about the risks of opioids abuse and overdose. ??? If you believe you may be struggling with addiction, tell your health career consultant and askfor guidance or call S (more content not included)...Normal Marion Hospitaled Rate Automatedon 30-75-2578MOT (Bld) [Velocity]35 mm/hHigh0-34[facility] HospitalComment on above:Performed By: #### [id number] #### [facility] [address], [place] [address]ZDGpj 53-56-9533Fmidj gap [Moles/Vol]13 mmol/LNormal6-16[facility] HospitalComment on above:Performed By: #### [id number] #### [facility] [address], [place] [address]Ifnhwlb [Mass/Vol]9.9 mg/dLNormal8.9-11.1FWVUMedicine Barnesville HospitalComment on above:Performed By: #### [id number] #### [facility] [address], [place] [address]Dvauunvz [Moles/Vol]107 mmol/OKsbdic930-025DzevktSheltering Arms HospitalComment on above:Performed By: #### [id number] #### [facility] [address], [place] [address]NW9 [Moles/Vol]23 mmol/RQjjryq92-89YdwimeSheltering Arms Hospital Comment on above:Performed By: #### [id number] #### [facility] [address], [place] [address]Lsvaxoetnx [Mass/Vol]0.7 mg/dLNormal0.5-1.3FWVUMedicine Barnesville HospitalComment on above:Performed By: #### [id number] #### [facility] [address], [place] [address]Csejupe [Mass/Vol]116 mg/hYDnkbvg78-814DaxwjgSheltering Arms HospitalComment on above:Performed By: #### [id number] #### [facility] [address], [place] [address]Phemhebsu [Moles/Vol]3.9 mmol/LNormal3.5-5.3FWVUMedicine Barnesville HospitalComment on above:Performed By: #### [id number] #### [facility] [address], [place] [address]Tdktvh [Moles/Vol]139 mmol/NGywdxc011-872CddhyoSheltering Arms HospitalComment on above:Performed By: #### [id number] #### [facility] [address], [place] [address]Tivm nitrogen [Mass/Vol]6 mg/dLNormal5-21[facility] HospitalComment on above:Performed By: #### [id number] #### [facility] [address], [place] [address]Dvmj nitrogen/Creatinine [Mass ratio]9 No LbsdtPno60-84KnsxknSheltering Arms HospitalComment on above:Performed By: #### [id number] #### [facility] [address] [place] [address]HMQ w/ Auto Diffon 52-42-7019Qwsspdhyl/100 WBC (Bld)1.2 %Normal 0.0-2.0[facility] HospitalComment on above:Performed By: #### [id number] #### [facility] [address] [place] [address]Okvcnhoja/Leukocytes Auto (Bld) [Pure # fraction]0.0 E9/LNormal 0.0-0.2FWVUMedicine Barnesville HospitalComment on above:Performed By: #### [id number] #### [facility] [address] [place] [address]Qwogywlrcdc (Bld) [#/Vol]0.0 E9/LNormal0.0-0.5FWVUMedicine Barnesville HospitalComment on above:Performed By: #### [id number] #### [facility] [address] [place] [address]Zhgozgyfson/100 WBC (Bld)0.4 %Normal0.0-8.0[facility] HospitalComment on above:Performed By: #### [id number] #### [facility] [address] [place] [address]Zuxgsmwdzvv distribution width (RBC) [Ratio]19.4 %High10.9-14.2 [facility] HospitalComment on above:Performed By: #### [id number] #### [facility] [address] [place] [address]Wysehtvdsg (Bld) [Volume fraction]37.3 %Vwnphe21.0-46.0[facility] HospitalComment on above:Performed By: #### [id number] #### [facility] [address] [place] [address]Gchodgyvtr (Bld) [Mass/Vol]11.8 g/dLLow12.0-16.0S[facility]tering Arms HospitalComment on above:Performed By: #### [id number] #### [facility] [address] [place] [address] 30891Sgpingntytx Auto Ql (Bld)PRESENTInvalid Interpretation Code [facility] HospitalComment on above:Performed By: #### [id number] #### [facility] [address] [place] [address] 55392Nuycbnpgboy (Bld) [#/Vol]1.3 E9/LNormal1.0-4.0[facility] HospitalComment on above:Performed By: #### [id number] #### [facility] [address] [place] [address] 60350Bnltecucjys/100 WBC (Bld)30.4 %Mkxrby51.0-50.0[facility] HospitalComment on above:Performed By: #### [id number] #### [facility] [address] [place] [address] 49579BZS (RBC) [Entitic mass]22.8 pgLow27.0-34.0[facility] HospitalComment on above:Performed By: #### [id number] #### [facility] [address] [place] [address] 86411KNZQ (RBC) [Mass/Vol]31.6 g/xTKzbvll00.4-36.0[facility] HospitalComment on above:Performed By: #### [id number] #### [facility] [address] [place] [address] 46838WFR (RBC) [Entitic vol]72.2 fLLow80.0-100.0[facility] HospitalComment on above:Performed By: #### [id number] #### [facility] [address] [place] [address] 78879Vgthnmawkw Ql (Bld)PRESENTInvalid Interpretation CodeSheltering Arms HospitalComment on above:Performed By: #### [id number] #### [facility] [address] [place] [address] 04404Wgekwtnsj (Bld) [#/Vol]0.2 E9/LNormal0.2-1.0[facility] HospitalComment on above:Performed By: #### [id number] #### [facility] [address] [place] [address] 66444Xzkulrddetq (Bld) [#/Vol]2.6 E9/LNormal2.0-7.5FWVUMedicine Barnesville HospitalComment on above:Performed By: #### [id number] #### [facility] [address] [place] [address] 05744Buvnbclvdam/100 WBC (Bld)62.2 %Zktydy77.0-75.0[facility] HospitalComment on above:Performed By: #### [id number] #### [facility] [address] [place] [address] 36469Bqtcofpq mean volume (Bld) [Entitic vol]7.6 fLNormal6.4-10.8 [facility] HospitalComment on above:Performed By: #### [id number] #### [facility] [address] [place] [address] 06576Dqnqufpzy (Bld) [#/Vol]563.0 E9/QUzdu356.0-500.0[facility] HospitalComment on above:Performed By: #### [id number] #### [facility] [address] [place] [address] 40491KFH (Bld) [#/Vol]5.2 E12/LNormal4.3-5.9S[facility] HospitalComment on above:Performed By: #### [id number] #### [facility] [address] [place] [address] 07237DUC size Nom (Bld)SEE MORPHOLOGYInvalid Interpretation Code [facility] HospitalComment on above:Performed By: #### [id number] #### [facility] [address] [place] [address] 09084CGH corrected for nucl RBC Auto (Bld) [#/Vol]4.2 E9/LNormal 4.0-11.0[facility] CenterComment on above:Performed By: #### [id number] #### [facility] [address] [place], [place] [address]QWONTEEFNIwoltvx By: SYSTEM SYSTEM on 70-43-9772Fvxxykr [Mass/Vol]4.6 g/dLNormal3.3 - 5.0 gm/dLRemisol ChemAlbumin/Globulin [Mass ratio] 1.1 {ratio}Normal1.1 - 2.2Remisol ChemALP [Catalytic activity/Vol]79 [iU]/d Rnlkao88 - 98 Int._Unit/LRemisol ChemALT No additional P-5'-P [Catalytic activity/Vol]17 [iU]/dNormal6 - 46 Int._Unit/LRemisol ChemAnion gap [Moles/Vol] 13 mmol/LNormal6 - 16 mEq/LRemisol ChemAST [Catalytic activity/Vol]21 [iU]/d Normal5 - 43 Int._Unit/LRemisol ChemBilirubin [Mass/Vol]0.3 mg/dLNormal0.0 - 1.1 mg/dLRemisol ChemBilirubin.direct [Mass/Vol]0.0 mg/dLNormal0.0 - 0.4 mg/dL Remisol ChemBilirubin.indirect [Mass or moles/Vol]0.3 mg/dLNormal0.1 - 0.9 mg/dL Remisol ChemCalcium [Mass/Vol]9.9 mg/dLNormal8.9 - 11.1 mg/dLRemisol Chem Chloride [Moles/Vol]107 mmol/UEgipyx662 - 111 mmol/LRemisol ChemCO2 [Moles/Vol] 23 mmol/HJidrtc31 - 31 mmol/LRemisol ChemCreatinine [Mass/Vol]0.7 mg/dLNormal0.5 - 1.3 mg/dLRemisol ChemCRP [Mass/Vol]0.5 mg/dLNormal<=1.9mg/dLRemisol ChemeGFR 114 mL/min/1.73 s6Mbwvvh>=59mL/min/1.73 p5Kmqkgio ChemGlobulin (S) [Mass/Vol]4.0 g/dLNormal1.4 - 4.0 gm/dLRemisol ChemGlucose [Mass/Vol]116 mg/gEKcaysv19 - 199 mg/dLRemisol ChemLipase [Catalytic activity/Vol]29 U/UYkkhqc42 - 58 unit/L Remisol ChemPotassium [Moles/Vol]3.9 mmol/LNormal3.5 - 5.3 mmol/LRemisol Chem Protein [Mass/Vol]8.6 g/dLHigh6.0 - 7.8 gm/dLRemisol ChemSodium [Moles/Vol]139 mmol/LVwzyju979 - 145 mmol/LRemisol ChemUrea nitrogen [Mass/Vol]6 mg/dLNormal5 - 21 mg/dLRemisol ChemUrea nitrogen/Creatinine [Mass ratio]9 mg/mgLow10 - 20 Remisol ChemHEMATOLOGYOrdered By: SYSTEM SYSTEM on 46-04-7040Vzfvrqzgm/100 WBC (Bld)1.2 %Normal0.0 - 2.0 %Remisol HemeBasophils/Leukocytes Auto (Bld) [Pure # fraction]0.0 E9/LNormal0.0 - 0.2 E9/LRemisol HemeEosinophils (Bld) [#/Vol]0.0 E9/LNormal0.0 - 0.5 E9/LRemisol HemeEosinophils/100 WBC (Bld)0.4 %Normal0.0 - 8.0 %Remisol HemeErythrocyte distribution width (RBC) [Ratio]19.4 %High10.9 - 14.2 %Remisol HemeHematocrit (Bld) [Volume fraction]37.3 %Bchpla11.0 - 46.0 % Remisol HemeHemoglobin (Bld) [Mass/Vol]11.8 g/dLLow12.0 - 16.0 gm/dLRemisol Heme Hypochromia Auto Ql (Bld)PRESENT *NA* (06/24/24 8:42 PM)Invalid Interpretation CodeRemisol HemeLymphocytes (Bld) [#/Vol]1.3 E9/LNormal1.0 - 4.0 E9/LRemisol HemeLymphocytes/100 WBC (Bld)30.4 % Xgyrfk23.0 - 50.0 %Remisol HemeMCH (RBC) [Entitic mass]22.8 pgLow27.0 - 34.0 pg Remisol HemeMCHC (RBC) [Mass/Vol]31.6 g/gGUeeyxc36.4 - 36.0 gm/dLRemisol HemeMCV (RBC) [Entitic vol]72.2 fLLow80.0 - 100.0 fLRemisol HemeMicrocytes Ql (Bld) PRESENT *NA* (06/24/24 8:42 PM)Invalid Interpretation CodeRemisol HemeMonocytes (Bld) [#/Vol] 0.2 E9/LNormal0.2 - 1.0 E9/LRemisol HemeMonocytes/100 WBC (Bld)5.8 %Normal4.0 - 14.0 %Remisol HemeNeutrophils (Bld) [#/Vol]2.6 E9/LNormal2.0 - 7.5 E9/LRemisol HemeNeutrophils/100 WBC (Bld)62.2 %Dfdjzg99.0 - 75.0 %Remisol HemePlatelet mean volume (Bld) [Entitic vol]7.6 fLNormal6.4 - 10.8 fLRemisol HemePlatelets (Bld) [#/Vol]563.0 E9/DAufm437.0 - 500.0 E9/LRemisol HemeRBC (Bld) [#/Vol]5.2 E12/L Normal4.3 - 5.9 E12/LRemisol HemeRBC size Nom (Bld)SEE MORPHOLOGY *NA* (06/24/24 8:42 PM)Invalid Interpretation CodeRemisol HemeWBC corrected for nucl RBC Auto (Bld) [#/Vol]4.2 E9/LNormal4.0 - 11.0 E9/LRemisol HemeHEMATOLOGYOrdered By: Lissette Segovia on 18-72-8741UDW (Bld) [Velocity]35 mm/hHigh0 - 34 mm/hr [facility] HemeAutoSSHep Func Panelon 10-06-7202Pehxdnm [Mass/Vol]4.6 g/dLNormal 3.3-5.0[facility] Chris Medical CenterComment on above:Performed By: #### [id number] #### [facility] [address] [place] [address] 22622Wbsawiq/Globulin (S) [Mass conc ratio]1.1Fwdsle1.1-2.2FWVUMedicine Barnesville HospitalComment on above:Performed By: #### [id number] #### [facility] [address] [place] [address] 48517RRY [Catalytic activity/Vol]79 Int._Unit/ODblyur75-60MikkksSheltering Arms HospitalComment on above:Performed By: #### [id number] #### [facility] [address] [place] [address] 73172PNV No additional P-5'-P [Catalytic activity/Vol]17 Int._Unit/L Normal6-46S[facility] Arms HospitalComment on above:Performed By: #### [id number] #### [facility] [address] [place] [address] 53914IOD [Catalytic activity/Vol]21 Int._Unit/LNormal5-43S[facility] Arms HospitalComment on above:Performed By: #### [id number] #### [facility] [address] [place] [address] 84824Uihucimpr [Mass/Vol]0.3 mg/dLNormal0.0-1.1FWVUMedicine Barnesville HospitalComment on above:Performed By: #### [id number] #### [facility] [address] [place] [address] 23465Vvejujhec.direct [Mass/Vol]0.0 mg/dLNormal0.0-0.4FWVUMedicine Barnesville HospitalComment on above:Performed By: #### [id number] #### [facility] [address] [place] [address] 13608Cxfpanqgx.indirect [Mass or moles/Vol]0.3 mg/dLNormal0.1-0.9 [facility] HospitalComment on above:Performed By: #### [id number] #### [facility] [address], [place] [address]Zpeppilf (S) [Mass/Vol]4.0 g/dLNormal1.4-4.0[facility] HospitalComment on above:Performed By: #### [id number] #### [facility] [address], [place] [address]Kdmveer [Mass/Vol]8.6 g/dLHigh6.0-7.8[facility] HospitalComment on above:Performed By: #### [id number] #### [facility] [address], [place] [address]Weqjdp Levelon 95-04-0146Mrolao [Catalytic activity/Vol]29 U/L Wydzxb53-49NdkggaSheltering Arms HospitalComment on above:Performed By: #### [id number] #### [facility] [address] [place] [address] 98133XVFFRPCFQytmrhs By: Levi Carranza on 16-10-2372IRF.beta subunit (U) [Moles/Vol]NegativeNormalFAIRFAX COMM[facility]ITY [facility] Man SeroU BetaHcg Qualon 06-24-2024 HCG.beta subunit (U) [Moles/Vol]NegativeNormalSheltering Arms HospitalComment on above:Performed By: #### [id number] #### [facility] [address] [place] [address] 35192AI with Cult Rflxon 29-55-8798Pxxvukqqy Ql (U)NegativeNormal NegativeSheltering Arms HospitalComment on above:Performed By: #### [id number] #### [facility] [address], [place] [address]Donbhvq (U)ClearNormalClearSheltering Arms HospitalComment on above:Performed By: #### [id number] #### [facility] [address] [place] [address] 25607Vlzte (U)ColorlessAbnormalYellowSheltering Arms Hospital Comment on above:Result Comment: Microscopic readings are only performed on those samples that meet specific criteria set forth by [facility].Performed By: #### [id number] #### [facility] [address], [place] [address]Gvvlolf Ql (U)[facility] Comment on above:Performed By: #### [id number] #### [facility] [address], [place] [address]Qtnopigani Auto test strip (U) [Mass/Vol]NegativeNormalNegative [facility] HospitalComment on above:Performed By: #### [id number] #### [facility] [address], [place] [address]Jpspbuq Auto test strip Ql (U)[facility] General HospitalrmalNegRegency Hospital Cleveland WestComment on above:Performed By: #### [id number] #### [facility] [address] [place] [address] 67913Kdnsnqkuu esterase Auto test strip Ql (U)[facility] General HospitalrmalNegative [facility] HospitalComment on above:Performed By: #### [id number] #### [facility] [address], [place] [address]Mqbkcmh Auto test strip Ql (U)[facility] General HospitalrmalNegRegency Hospital Cleveland WestComment on above:Performed By: #### [id number] #### [facility] [address] [place] [address] 53397jE (U)7.0 [pH]Invalid Interpretation Code5.0-9.0[facility] HospitalComment on above:Performed By: #### [id number] #### [facility] [address], [place] [address]Fyicuzn Ql (U)NegativeNormalNegRegency Hospital Cleveland West Comment on above:Performed By: #### [id number] #### [facility] [address], [place] [address]Iwbgvmoi gravity (U) [Rel density]1.003Invalid Interpretation Code1.005-1.030[facility] HospitalComment on above:Performed By: #### [id number] #### [facility] [address], [place] [address]Vuvcesosabqo (U) [Mass/Vol]NegativeNormalNegativeSheltering Arms HospitalComment on above:Performed By: #### [id number] #### [facility] [address], [place] [address]Fykn of Urine collection methodClean CatchNormCleveland Clinic Euclid HospitalComment on above:Performed By: #### [id number] #### [facility] [address], [place] [address]HXECEDRWFTPiczcek By: SYSTEM SYSTEM on 39-88-8469Mzhvkqqdx Ql (U)NegativeNormalNegativemg/dLFAIRFAX COMMUNITY HOSPITAL – [facility] UA Auto SSClarity (U)Clear (06/24/24 11:36 PM)NormalClearFTMC UA Auto SSColor (U)Colorless 1 *ABN* (06/24/24 11:36 PM)Invalid Interpretation CodeYellowFT UA Auto SSComment on above:Interpretive Data: Microscopic readings are only performed on those samples that meet specific criteria set forth by [facility].Glucose Ql (U)NegativeNormalNegativemg/dLFT UA Auto SSHemoglobin Auto test strip (U) [Mass/Vol]NegativeNormalNegativemg/dLFT UA Auto SSKetones Auto test strip Ql (U)NegativeNormalNegativemg/dLFT UA Auto SSLeukocyte esterase Auto test strip Ql (U)NegativeNormalNegativeLeu/uLFT UA Auto SS Nitrite Auto test strip Ql (U)NegativeNormalNegativemg/dLFT UA Auto SSpH (U) 7.0 *NA* (06/24/24 11:36 PM)Invalid Interpretation Code5.0 - 9.0FT UA Auto SSProtein Ql (U)NegativeNormalNegativemg/dLFT UA Auto SSSpecific gravity (U) [Rel density] 1.003 *NA* (06/24/24 11:36 PM)Invalid Interpretation Code1.005 - 1.030FT UA Auto SS Urobilinogen (U) [Mass/Vol]NegativeNormalNegativemg/dLFAIRFAX COMMUNITY HOSPITAL – [facility] UA Auto SSURINALYSIS Ordered By: Ritesh Heath on 60-94-3835GL Spec DescClean Catch (06/24/24 11:36 PM)[facility] UA Auto SS eGFRon 12-33-7616bKEV298 mL/min/1.73 t6Avtgdl>=59Fisher [facility] CenterComment on above:Performed By: #### [id number] #### [facility] [address] [place], [place] [address]Eobpfa Summaryon 16-16-6180Dmrpxy SummaryHTMLBase 64 ElfaretxGGv7yEn+PGhlYWQ+HK8PCCTbG00zpSZblH3vO6VWKHqEQjudGTZHSGoDSuIgskDeIB4rhOLp ZXJu [file] b2x (more content not included)...NormalMagruder HospitalCoding SummaryHTMLBase 64 QygshkqvJBs4zFe+PGhlYWQ+SL0FDFGrE99fiEDhvY9uC1XCPSrOTcbhMKZKXIoTQeVmwkKjJC8jnOXy ZXJu [file] b2x (more content not included)...[facility] HospitalRelease of Information on 72-87-8828Aqpvukh of Information [id number]#1.00[facility] Consent Formson 56-43-2313Ekbmatt Forms [id number]#1.00[facility].Auto Diff 1on 63-23-1425Drdy [place] %6 %Anmoore1C[facility]innati Va Medical CenterComment on above: Performed By: #### [id number], 1622070, 7618866134, 2127173745, 5688834149 ####[facility] (DEFAULT)[address] [place], [place] [address]Bciw Abs# 0.0 r81Buymha8.0-0.2Mkettering health preble HospitalComment on above:Performed By: #### 85357920, 2819383, 5803712478, 3504081139, 8669475380 ####[facility] (DEFAULT)[address] [place] [address] 39015Ikivdsdmi/100 WBC (Bld)0.7 % Normal0.2-2.0Magruder HospitalComment on above:Performed By: #### 55691088, 0574620, 7036626686, 5390611448, 6327420552 ####[facility] (DEFAULT)[address] [place] [address] 64971Mlf Abs#0.0 i88Dutlai6.0-0.4[facility] Comment on above:Performed By: #### 77282449, 8504475, 1710364760, 3748270616, 2689784770 ####[facility] (DEFAULT)[address] [place] [address] 65357Bvnzuklldfd/100 WBC (Bld)0.8 %Low0.9-4.0[facility] HospitalComment on above: Performed By: #### 49276640, 4468674, 3769988908, 7804940496, 4855990905 ####[facility] (DEFAULT)[address] [place] [address] 49944Wssuh Abs# 2.0 p71Ytcjtv3.3-2.9[facility] HospitalComment on above:Performed By: #### 17703825, 2369584, 6272726878, 2912812030, 8784583757 ####[facility] (DEFAULT)[address] [place] [address] 16120Mopjkljoehf/100 WBC (Bld)37 % Oeurkj16-84Ogmkrwlt HospitalComment on above:Performed By: #### 33279176, 3345167, 7372707393, 0911305376, 4643232210 ####[facility] (DEFAULT)[address] [place] [address] 996[address]Vhsa Abs#0.3 e94Tifoth0.0-0.8[facility] HospitalComment on above:Performed By: #### 29677187, 8479555, 3568199436, 1112594890, 0338822043 ####[facility] (DEFAULT)[address] [place], [place] [address]Neut Abs#3.1 k09Mdpxlq6.5-9.2Mkettering health preble HospitalComment on above: Performed By: #### 95529099, 3710630, 7072662885, 8627251806, 6429058197 ####[facility] (DEFAULT)[address] [place], [place] [address] Neutrophils/100 WBC (Bld)56 %Ojppjl97-50Akyridvw HospitalComment on above: Performed By: #### 12218993, 1445232, 2140007952, 0347420549, 1938951671 ####[facility] (DEFAULT)[address] [place], [place] [address]CBC w/ Auto Diffon 08-28-2011Jal Diff?AutoNormalOhio State Harding Hospital HospitalComment on above: Performed By: #### 20473111, 9274885, 9984688028, 5162487986, 9461558251 ####[facility] (DEFAULT)[address] [place] [address] 216[address] Erythrocyte distribution width (RBC) [Ratio]20.0 %High11.5-15.0[facility] Comment on above:Performed By: #### 44416128, 6699838, 1656393737, 4013802534, 5804883431 ####[facility] (DEFAULT)[address] [place] [address] 73915Mxunjuogpn (Bld) [Volume fraction]35.5 %Degeja05.7-40.4[facility] Comment on above:Performed By: #### 46850244, 2752489, 2770596210, 0214353741, 0221870465 ####[facility] (DEFAULT)[address] [place] [address] 46729Ijesttahjw (Bld) [Mass/Vol]11.3 g/iZNmfuie04.3-15.9[facility] HospitalComment on above:Performed By: #### 36521168, 5221524, 9226647587, 7368481452, 8308593877 ####[facility] (DEFAULT)[address] [place] [address] 21380VNR (RBC) [Entitic mass]23 dnNyh33-70Qovxvyvq HospitalComment on above: Performed By: #### 26869312, 3625790, 4897504615, 6649052994, 5817923864 ####[facility] (DEFAULT)[address] [place] [address] 95475SIJG (RBC) [Mass/Vol]32 g/jUGifglx92-10Ffuakcfy HospitalComment on above:Performed By: #### 00663969, 2661344, 1808384681, 6190965636, 9441825576 ####[facility] (DEFAULT)[address] [place] [address] 96565REB (RBC) [Entitic vol]73 fLLow 81-100[facility] HospitalComment on above:Performed By: #### 12907579, 8691238, 2563781739, 7729389356, 1625850243 ####[facility] (DEFAULT)[address] [place] [address] 83766Dboqejyv793 z30Zyhs672-875Fhlsfhkc HospitalComment on above:Performed By: #### 89772864, 6315330, 8623009106, 7463451511, 4993836157 ####[facility] (DEFAULT)[address] [place] [address] 02573Rhxafqba mean volume (Bld) [Entitic vol]7.8 fLNormal6.3-10.2Magrsouthwest general health center HospitalComment on above:Performed By: #### 60623049, 3661773, 7675270562, 5663779374, 3556942650 ####[facility] (DEFAULT)[address] [place] [address] 11497PRP5.87 k90Cabwco0.70-5.30[facility] HospitalComment on above: Performed By: #### 42975861, 7778904, 6597107450, 3517985775, 7273252749 ####[facility] (DEFAULT)[address] [place] [address] 11516LIE1.5 x10 Normal3.5-10.5[facility] HospitalComment on above:Performed By: #### 92853130, 8977809, 0514457765, 4310124501, 4755071036 ####[facility] (DEFAULT)[address] [place] [address] 64373BXS Standardon 55-57-6751iGQV Non AA>60 Invalid Interpretation CodeOhio State Harding Hospital HospitalComment on above:Performed By: #### 21773614, 8116538, 2887880086, 6578521880, 5624709358 ####[facility] (DEFAULT)[address] [place] [address] 25316vYFV AA>60Invalid Interpretation [facility] HospitalComment on above:Performed By: #### 58244854, 8047182, 0053020429, 7897967260, 7196440556 ####[facility] (DEFAULT)[address] [place] [address] 07556Hkizlcb [Mass/Vol]4.2 g/dLNormal3.5-5.0[facility] HospitalComment on above:Performed By: #### 64902394, 0914416, 1932737570, 8415760944, 2817692684 ####[facility] (DEFAULT)[address] [place] [address] 42913Jodjnwv/Globulin [Mass ratio]1.0 {ratio}Low1.4-2.6M[facility] HospitalComment on above:Performed By: #### 72043590, 9339146, 3655761748, 7787999473, 0975502706 ####[facility] (DEFAULT)[address] [place] [address] 47092Rds Phos61 IU/PPcofrd68-16Qelcxkib HospitalComment on above: Performed By: #### 22757051, 4642103, 0511205172, 4557101997, 8050382033 ####[facility] (DEFAULT)[address] [place] [address] 02364ZZX [Catalytic activity/Vol]28.0 U/SPvihff42.0-54.0[facility] CenterComment on above:Performed By: #### 78701659, 9699414, 4742118262, 3773962450, 0003088654 ####[facility] (DEFAULT)[address] [place] [address] 11402Mvkic gap [Moles/Vol]12.4 mmol/LNormal5.0-19.0[facility] HospitalComment on above:Performed By: #### 17612273, 5695664, 0519333392, 6098506693, 7395081517 ####[facility] (DEFAULT)[address] [place] [address] 21183RPE [Catalytic activity/Vol]23 U/OFantqi84-25Jrnsanjf HospitalComment on above:Performed By: #### 29958894, 2232619, 6690041757, 1105627940, 3713924428 ####[facility] (DEFAULT)[address] [place] [address] 82980Xtgw Total0.8 mg/dLNormal0.3-1.2 [facility] CenterComment on above:Performed By: #### 42520095, 5001684, 3918848749, 0589154233, 0318540162 ####[facility] (DEFAULT)[address] [place] [address] 51382Attnlpg [Mass/Vol]9.1 mg/dLNormal8.9-10.3M[facility] HospitalComment on above:Performed By: #### 43428554, 4814521, 8492827098, 5921734832, 2039572705 ####[facility] (DEFAULT)[address] [place] [address] 40417Aogjdymh [Moles/Vol]106 mmol/UXurcjh093-302Cmajcijf Hospital Comment on above:Performed By: #### 40756374, 5623111, 3479270925, 3260768560, 4895067359 ####[facility] (DEFAULT)[address] [place] [address] 79273GF9 [Moles/Vol]23 mmol/XWemceb13-79Igupxxqz HospitalComment on above: Performed By: #### 83502232, 5609886, 0116424023, 6696275631, 3659053599 ####[facility] (DEFAULT)[address] [place] [address] 92187Ilrbachlmc [Mass/Vol]0.78 mg/dLNormal0.60-1.30[facility] HospitalComment on above:Performed By: #### 38872939, 1665538, 8473160154, 3856519072, 3627799997 ####[facility] (DEFAULT)[address] [place] [address] 68107Yygezqek (S) [Mass/Vol] 4.1 g/dLNormal1.5-4.3M[facility] HospitalComment on above:Performed By: #### 28764724, 4995136, 7955854571, 0813590861, 4207286351 ####[facility] (DEFAULT)[address] [place] [address] 09392Pnioyha [Mass/Vol]104.0 mg/dL Mpzyjy60.0-118.0[facility] HospitalComment on above:Performed By: #### [id number], [id number], [id number], [id number], [id number] ####[facility] (DEFAULT)[address] [place] [address] 50261Icfueepolr252 mOsm/LInvalid Interpretation CodeOhio [facility] HospitalComment on above:Performed By: #### [id number], [id number], [id number], [id number], [id number] ####[facility] (DEFAULT)[address] [place] [address] 94120Euvpiewkp [Moles/Vol]3.4 mmol/LLow3.6-5.1[facility] HospitalComment on above:Performed By: #### [id number], [id number], [id number], [id number], [id number] ####[facility] (DEFAULT)[address] [place] [address] 78461Gqksagp [Mass/Vol]8.3 g/dLHigh6.5-8.1[facility] HospitalComment on above:Performed By: #### [id number], [id number], [id number], [id number], [id number] ####[facility] (DEFAULT)[address] [place] [address] 42946Wszgfw [Moles/Vol]138.0 mmol/OFielvz018.0-144.0[facility] CenterComment on above:Performed By: #### [id number], [id number], [id number], [id number], [id number] ####[facility] (DEFAULT)[address] [place] [address] 08383Vmnn nitrogen [Mass/Vol]8 mg/dLNormal8-26[facility] CenterComment on above:Performed By: #### [id number], [id number], [id number], [id number], [id number] ####[facility] (DEFAULT)[address] [place] [address] 91292Zfvi nitrogen/Creatinine [Mass ratio]10.2 mg/mgNormal4.6-16.2MGenesis HospitalComment on above:Performed By: #### [id number], [id number], [id number], [id number], [id number] ####[facility] (DEFAULT)[address] [place] [address]2343Eixnzeolnw ChemNormalCincinnati Va Medical CenterComment on above:Performed By: #### [id number], [id number], [id number], [id number], [id number] ####[facility] (DEFAULT)[address] [place] [address] 87046CB Clinical Summaryon 06-11-2024 ED Clinical Summary[facility] - [facility] Department [address] [place] [address] ED Clinical Summary PERSON INFORMATION Name: ANTONIA NOYOLA Age: 39 Years Sex: FEMALE : 1985 MRN: Acct#: Visit Reason: Abdominal pain; RT SIDE ABD PAIN Arrival: 06/11/2024 15:13:20 Discharge: 06/11/2024 18:32:00 LOS: 000 03:19 Check In: 06/11/2024 15:13:20 Checkout:06/11/2024 18:32:00 Address: [address] [place] [address] PCP: Provider, None PROVIDER INFORMATION Provider Role Assigned Unassigned Letty RN, Celestina Leos ED Nurse 06/11/2024 15:15:36 Lenka Padilla [employer] ED PA 06/11/2024 15:17:46 Eran Hill MD [...] Home PATIENT EDUCATION INFORMATION Instructions: Ovarian Cyst, Kvdj-ym-Yphy Follow-Up: With: Address: When: Provider, None [address] [place] [address] Within 3 to 5 days Comments: Please call Dr. Wilson office and see if you can be seen sooner than June 18. CT scan shows a possible right ovarian cyst. 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 Continue taking medication as needed for pain. May take Tylenol 1000 mg every 6 hours as needed for pain. May take ibuprofen 600 mg every 8 hours as needed for pain. DIAGNOSIS: 1:Other ovarian cyst, right side Patient Understands: Yes - Patient/family/caregiver verbalizes understanding of instructions given Comment:[facility]ED [facility] Summaryon [id number] Patient Summary [facility] - [facility] Department [address] [place] [address] PATIENT DISCHARGE INSTRUCTIONS Patient Information Name: ANTONIA NOYOLA Age: 39 Years Date of : 1985 Reason For Visit: Abdominal pain; RT SIDE ABD PAIN Arrival Time: 06/11/2024 15:13:20 Primary Care Physician: Provider, None Attending Physician: Eran Hill MD Comment: Visit Diagnosis: Diagnoses This Visit Abdominal pain ([id number]) Other ovarian cyst, right side (N83.291) The Pharmacy at [facility] is open Tuesday through Tuesday from 9A to 6P and Tuesday and Tuesday from 9A to 5P Prescription Information: If you have been given a prescription for narcotics, seek immediate medical attention if you have any difficulty breathing or any sudden status changes such as confusion andsleepiness. If you or anyone you know is experiencing suicidal thoughts, mental health, alcohol and/or drug addiction problems; contact the [facility] 03/01 Crisis Hotline -Text 9KYGA zg [phone]. If you received any narcotics, sedation, or [...] legal documents With: Address: When: Provider, Shazia [address] [place] [address] Within 3 to 5 days Comments: Please call Dr. Wilson office and see if you can be seen sooner than June 18. CT scan shows a possible right ovarian cyst. 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 Continue taking medication as needed for pain. May take Tylenol 1000 mg every 6 hours as needed for pain. May take ibuprofen 600 mg every 8 hours as needed for pain. Medication Information: The exam and treatment you received today in the [facility] Emergency Department were for an urgent problem and are not intended as complete care. It is important for you to follow up with a doctor, nurse practitioner, or physician?s program assistant for ongoing care. If your symptoms become worse or you donot improve as expected and you are unable [...] so we can reach you if necessary. [facility] has provided you with a complete list of medications post discharge. Please inform your construction estimator/provider of your visit and for further instruction [...] ? Polycystic ovarian syndrom (more content not included)...NormalCincinnati Va Medical CenterUA w Culture if Ind Standardon 47-85-0732Qjyatdoamu UANormal [facility] Va Medical CenterComment on above:Performed By: #### [id number] ####[facility] (DEFAULT)[address] [place] [address] 73353Fjinm (U)YellowNormal [facility] HospitalComment on above:Performed By: #### [id number] ####[facility] (DEFAULT)[address] [place] [address] 02446Rexnkcf?Not Indicated Invalid Interpretation CodeMagruder HospitalComment on above:Result Comment: Result created by rule GL_MAGR_ADD_UA_CULT1Performed By: #### [id number] ####[facility] (DEFAULT)[address] [place] [address] 22868Pxtkruz (U) [Mass/Vol]NegativeNormalOkgrsouthwest general health center HospitalComment on above:Performed By: #### [id number] ####[facility] (DEFAULT)[address] [place] [address] 60560Egwenih Ql (U)NegativeNormalOhio State Harding Hospital HospitalComment on above:Performed By: #### [id number] ####[facility] (DEFAULT)[address] [place] [address] 92998Driij?Not IndicatedInvalid Interpretation CodeOhio State Harding Hospital HospitalComment on above:Result Comment: Result created by rule GL_MAGR_ADD_UA_MICROPerformed By: #### [id number] ####[facility] (DEFAULT)[address] [place] [address] 29776TV BilirubinNegativeNormalOhio State Harding Hospital HospitalComment on above: Performed By: #### [id number] ####[facility] (DEFAULT)[address] [place] [address] 83351TM BloodNegativeNormalNEGATIVEOhio State Harding Hospital Hospital Comment on above:Performed By: #### [id number] ####[facility] (DEFAULT)[address] [place] [address] 65315HM ClarityCLEARNormalCLEAR [facility] HospitalComment on above:Performed By: #### [id number] ####[facility] (DEFAULT)[address] [place] [address] 47726DF Leuk EstNegative NormalNEGATIVEOhio State Harding Hospital HospitalComment on above:Performed By: #### [id number] ####[facility] (DEFAULT)[address] [place] [address] 38647LD Nitrite NegativeNormalNEGATIVEOhio State Harding Hospital HospitalComment on above:Performed By: #### [id number] ####[facility] (DEFAULT)[address] [place] [address] 77940KN pH6.4Lvxyyd6-4Zsmsysrf HospitalComment on above:Performed By: #### [id number] ####[facility] (DEFAULT)[address] [place] [address] 94191ER ProteinNegativeNormalNEGATIVEOhio State Harding Hospital HospitalComment on above:Performed By: #### [id number] ####[facility] (DEFAULT)[address] [place] [address]W[place] Spec Grav1.572Auiyjm4.001-1.035[facility] HospitalComment on above:Performed By: #### [id number] ####[facility] (DEFAULT)[address] [place] [address] 69691AI Urobilinogen0.2 mg/dLNormal0.2-1.0[facility] HospitalComment on above:Performed By: #### [id number] ####[facility] (DEFAULT)[address] [place] [address] 10558Wtdqh SourceClean CatchNormal [facility] HospitalComment on above:Performed By: #### [id number] ####[facility] (DEFAULT)[address] [place] [address] 01326JN Pelvis Non-OB Completeon 24-93-1901PL Pelvis Non-OB CompleteEXAM: US Pelvis Non-OB Complete HISTORY: R Ovarian [...] Rina Rushing MD 06/11/24 6:46 pm Technologist: [facility] Transvaginalon 53-82-9388KD TransvaginalEXAM: US Pelvis Non-OB Complete HISTORY: R Ovarian [...] Rina Rushing MD 06/11/24 6:46 pm Technologist: [facility] AND AUTO DIFFon 63-27-8365IHFNSFLF BASOPHIL0.1 X10E9/LNormal0.0-0.2[facility] HospitalComment on above: Performed By: #### STEVE NAYAK, 83142-0 #### [facility] ([id number]) [address], [address] [place], [place] [address]PJTBRTJX NEUTROPHIL3.8 X10E9/LNormal1.5-6.6ProOhiohealth Van Wert Hospitalca [facility]c [facility] HospitalComment on above:Performed By: #### STEVE NAYAK, 09603-9 #### [facility] ([id number]) [address], [address] [place], [place] [address]Axahtuony/100 WBC (Bld)0.9 %NormalProCleveland Clinic Hospital Comment on above:Performed By: #### CBCChi, CMP, 70408-5 #### [facility] ([id number]) [address], [address] [place], [place] [address]Lwptecisnhe (Bld) [#/Vol]0.0 10*3/uLNormal0.0-0.4ProMedica [facility] HospitalComment on above:Performed By: #### CBCChi, CMP, 31044-8 #### [facility] ([id number]) [address], [address] [place], [place] [address]Gqrcbscvjxe/100 WBC (Bld)0.6 %NormalProPremier Health Miami [facility] Hospital North Comment on above:Performed By: #### CBCChi, CMP, 45332-2 #### [facility] ([id number]) [address], [address] [place], [place] [address]Hueahqzldlt distribution width (RBC) [Ratio]20.0 %High11.5-15.0 [facility] HospitalComment on above:Performed By: #### CBCChi CMP, 43189-7 #### [facility] ([id number]) [address], [address] [place], [place] [address]Stneclglfo (Bld) [Volume fraction]31.9 %Xze78-04SevBguchgPremier Health Miami Valley Hospital NorthComment on above:Performed By: #### CBCChi CMP, 74628-8 #### [facility] ([id number]) [address], [address] [place], [place] [address]Djzgzmxsez (Bld) [Mass/Vol]10.2 g/dLLow11.7-15.5ProMedica [facility] HospitalComment on above:Performed By: #### CBCA, CMP, 05678-8 #### [facility] ([id number]) [address], [address] [place], [place] [address]Kvytenhtumc (Bld) [#/Vol]3.1 10*3/uLNormal1.0-3.5PMount St. Mary HospitalComment on above:Performed By: #### CBCA, CMP, 13165-3 #### [facility] ([id number]) [address], [address] [place], [place] [address]Qzikbroitmu/100 WBC (Bld)41.0 %NormalMetroHealth Parma Medical Center Comment on above:Performed By: #### CBCA, CMP, 70343-1 #### [facility] ([id number]) [address], [address] [place], [place] [address]DBK (RBC) [Entitic mass]22.8 atWcm62-90FohGerjygMetroHealth Parma Medical Center Comment on above:Performed By: #### CBCA, CMP, 36563-9 #### [facility] ([id number]) [address], [address] [place], [place] [address]MQEW (RBC) [Mass/Vol]31.9 g/oSNfo78-27BggVmdqtiMetroHealth Parma Medical Center Comment on above:Performed By: #### CBCA, CMP, 53622-2 #### [facility] ([id number]) [address], [address] [place], [place] [address]KIK (RBC) [Entitic vol]72 aWAvv27-924MqvWsrahkMetroHealth Parma Medical Center Comment on above:Performed By: #### CBCA, CMP, 93164-0 #### [facility] ([id number]) [address], [address] [place], [place] [address]Fwyfnlpfp (Bld) [#/Vol]0.5 10*3/uLNormal0-0.9Met[facility] Parma Medical CenterComment on above:Performed By: #### CBCA, CMP, 54568-2 #### [facility] ([id number]) [address], [address] [place], [place] [address]Pzjtvvkju/100 WBC (Bld)6.6 %[facility] Comment on above:Performed By: #### CBCA, CMP, 97558-9 #### [facility] ([id number]) [address], [address] [place], [place] [address]Ijxdwindwgi/100 WBC (Bld)50.9 %NormalMetroHealth Parma Medical Center Comment on above:Performed By: #### CBCA, CMP, 12561-7 #### [facility] ([id number]) [address], [address] [place], [place] [address]Ruhczgip mean volume (Bld) [Entitic vol]7.4 fLNormal7-12 [facility] Medical CenterComment on above:Performed By: #### CBCA, CMP, 18292-1 #### [facility] ([id number]) [address], [address] [place], [place] [address]Oowgkidci (Bld) [#/Vol]415 10*3/uBBkhpjv578-055LdzZrnwjd [facility] HospitalComment on above:Performed By: #### CBCA, CMP, 88020-1 #### [facility] ([id number]) [address], [address] [place], [place] [address]ZOJ COUNT4.46 X10E12/LNormal3.80-5.20[facility] Comment on above:Performed By: #### CBCA, CMP, 77002-9 #### [facility] ([id number]) [address], [address] [place], [place] [address]BTV (Bld) [#/Vol]7.5 10*3/uLNormal4.0-11.0[facility] Medical CenterComment on above:Performed By: #### CBCA, CMP, 56949-3 #### [facility] ([id number]) [address], [address] [place], [place] [address]AZPZCUSPH/GC BY PCRon 12-06-1976IVNFZOHST/GC BY PCRSPECIMEN SOURCE CERVIX CHLAMYDIA DNA(PCR) Negative (qualifier value) Chlamydia trachomatis not detected by nucleic acid amplification. This does not exclude the possibility of infection because results are dependent on adequate specimen collection. GONORRHOEAE DNA(PCR) Negative (qualifier value) Neisseria gonorrhoeae not detected by nucleic acid amplification. This does not exclude the possibility of infection because results are dependent on adequate specimen collection.NormalProMedica Prescott HospitalComment on above:Performed By: #### STEVE NAYAK #### [facility] ([id number]) [address], [address] [place], [place] [address]AGZSYSDWIRCBT METABOLIC PANELon 90-01-0080Mxttbtn [Mass/Vol]4.0 g/dLNormal3.2-5.3Pro[facility] HospitalComment on above:Performed By: #### STEVE NAYAK, 14887-7 #### [facility] ([id number]) [address], [address] [place], [place] [address]AXR [Catalytic activity/Vol]65 U/RSxndrc49-986FrnBunxkn Prescott HospitalComment on above:Performed By: #### STEVE NAYAK, 15389-2 #### [facility] ([id number]) [address], [address] [place], [place] [address]TFL [Catalytic activity/Vol]32 U/LHigh0-31[facility] [place] HospitalComment on above:Performed By: #### STEVE NAYAK, 68307-6 #### [facility] ([id number]) [address], [address] [place], [place] [address]Clrek gap [Moles/Vol]11 mmol/LNormal5-15[facility] HospitalComment on above:Performed By: #### STEVE NAYAK, 01245-3 #### [facility] ([id number]) [address] [address] [place], [place] [address]VLX [Catalytic activity/Vol]29 U/LNormal0-41[facility] HospitalComment on above:Performed By: #### STEVE NAYAK, 46495-8 #### [facility] ([id number]) [address], [address] [place], [place] [address]Fsjusjyfx [Mass/Vol]0.6 mg/dLNormal0.3-1.2PTrinity Health System East Campus HospitalComment on above:Performed By: #### STEVE NAYAK, 34067-2 #### [facility] ([id number]) [address], [facility] [address] [place], [place] [address]Hayibvm [Mass/Vol]9.0 mg/dLNormal8.5-10.5PTrinity Health System East Campus HospitalComment on above:Performed By: #### STEVE NAYAK, 18446-5 #### [facility] ([id number]) [address], [address] [place], [place] [address]Trfzgtgv [Moles/Vol]105 mmol/DFwnlzp87-433UthLekkhq [place] HospitalComment on above:Performed By: #### STEVE NAYAK, 40256-9 #### [facility] ([id number]) [address], [address] [place], [place] [address]KO7 [Moles/Vol]24 mmol/UOucajl84-95MwuQydykr [facility] Comment on above:Performed By: #### STEVE NAYAK, 28080-7 #### [facility] ([id number]) [address], [facility] [address] [place], [place] [address]Dskkhxbkri [Mass/Vol]0.76 mg/dLNormal0.40-1.00ProCleveland Clinic HospitalComment on above:Result Comment: METHOD TRACEABLE TO IDMS STANDARD Performed By: #### STEVE NAYAK, 91217-3 #### [facility] ([id number]) [address], [address] [place], [place] [address]aMHY (CKD-EPI) NON-RACE DEPENDENT>90Normal>59ProCleveland Clinic HospitalComment on above:Result Comment: Reported eGFR is based on the CKD-EPI 2020 equation that does not use a race coefficient.Performed By: #### STEVE NAYAK, 05918-2 #### [facility] ([id number]) [address] [address] [place], [place] [address]Kjlskhl [Mass/Vol]119 mg/qMSlcj10-06InhXwyybnMetroHealth Parma Medical Center Comment on above:Performed By: #### STEVE NAYAK, 63441-0 #### [facility] ([id number]) [address] [address] [place], [place] [address]Omwqddvft [Moles/Vol]3.3 mmol/LLow3.5-5.0ProPremier Health Miami Valley Hospital NorthComment on above:Performed By: #### STEVE NAYAK, 59457-1 #### [facility] ([id number]) [address] [address] [place], [place] [address]Rfxhcip [Mass/Vol]7.2 g/dLNormal6.0-8.0[facility] Comment on above:Performed By: #### STEVE NAYAK, 17560-7 #### [facility] ([id number]) [address] [address] [place], [place] [address]Nhylhl [Moles/Vol]140 mmol/GZliqlw523-347ZrsLjjiuw [place] HospitalComment on above:Performed By: #### STEVE NAYAK, 69346-6 #### [facility] ([id number]) [address] [address] [place], [place] [address]Ytew nitrogen [Mass/Vol]7 mg/dLNormal5-23ProPremier Health Miami Valley Hospital NorthComment on above:Performed By: #### STEVE NAYAK, 98714-4 #### [facility] ([id number]) [address] [address] [place], [place] [address]Iczujhgoflk Qnon 52-83-6059UUEKGKPE STIM HORMONE6.7 mIU/mLNormal [facility] HospitalComment on above:Result Comment: NORMAL FEMALE Luteal 1.8-5.1 mIU/mL Follicular 3.8-8.8 mIU/mL Mid Cycle 4.5-22.5 mIU/mL Post Alexa 16.7-113.6 mIU/mL Performed By: #### CBCA, CMP, 37227-0 #### [facility] ([id number]) [address] [facility], [address] [place], [place] [address]LZA MACROSCOPIC NURon 85-85-3338CQVGLJRBO NURSmallAbnormalNEG [facility] HospitalComment on above:Performed By: #### NUM #### [facility] ([id number]) [address] [place], [place] [address]PZQBI/HGB NURNegativeNormalNEGProMedica [place] HospitalComment on above:Performed By: #### NUM #### [facility] ([id number]) [address] [place], [place] [address]ZJUBFXS NURNegativeNormalNEGProMedica Jara HospitalComment on above:Performed By: #### NUM #### [facility] ([id number]) [address] [place], [place] [address]ULVUGBY NUR15 mg/dLAbnormalNEGProMedica Jara HospitalComment on above:Performed By: #### NUM #### [facility] ([id number]) [address] [place], [place] [address]WVMNXRIKY ESTERASE NURNegativeNormalNEGProMedica Prescott Hospital Comment on above:Performed By: #### NUM #### [facility] ([id number]) [address] [place], [place] [address]VTNUACM NURNegativeNormalNEGProMedica Jara HospitalComment on above:Performed By: #### NUM #### [facility] ([id number]) [address] [place], [place] [address]LD NUR5.9Wrsgzh7.0-8.5PMount St. Mary HospitalComment on above: Performed By: #### NUM #### [facility] ([id number]) [address] [place], [place] [address]IPWARAL NURTraceAbnormalNEGProCleveland Clinic HospitalComment on above:Performed By: #### NUM #### [facility] ([id number]) [address] [place], [place] [address]GZOINSIR GRAVITY AUDREY>=1.140Jvmmee3.003-1.035ProPremier Health Miami Valley Hospital NorthComment on above:Performed By: #### NUM #### [facility] ([id number]) [address] [place], [place] [address]PTHKWZTITEOT NUR0.2 eu/dLNormal<1.1PMount St. Mary Hospital Comment on above:Performed By: #### NUM #### [facility] ([id number]) [address] [place], [place] [address]QQ PELVIC WITH TRANSVAGINALon 21-11-5500XY PELVIC WITH TRANSVAGINALUS PELVIC WITH TRANSVAGINAL PELVIC ULTRASOUND HISTORY: Right [...] to clinically suspected ovarian remnant syndrome following hysterectomy/oophorectomy. Other considerations include mildly complicated postoperative seroma or residual endometrioma. Superimposed infection not fully excluded in the appropriate clinical setting. Finalized by Steve El MD on 06/10/2024 10:18 AMNormalMetroHealth Parma Medical CenterUrine collection deviceon 35-08-8365VL EXTRA URINESER EXTRA URINE ORDER IN PROCESSNormalMetroHealth Parma Medical CenterVAGINITIS PANEL PCRon 06-10-2024 VAGINITIS PANEL PCRBACT. VAGINOSIS DNA Not detected (qualifier value) Qualitative [...] accordance with clinical presentation to determine patient diagnosis.NormalProPremier Health Miami Valley Hospital NorthComment on above:Performed By: #### VPPCR #### [facility] ([id number]) [address] [place] [address], [address] [place], [place] [address]WUX AND AUTO DIFFon 49-60-8468MZEFKMAK BASOPHIL0.1 X10E9/LNormal 0.0-0.2[facility] HospitalComment on above:Performed By: #### CBCA, [facility], 3040-3, 48816-1, 1987-5, 08944-2 #### [facility] ([id number]) [address] [facility], [address] FLO[address] [place], [place] [address]OXSOYHRQ NEUTROPHIL2.7 X10E9/LNormal1.5-6.6ProMediSanta Ynez Valley Cottage HospitalComment on above:Performed By: #### CBCA, CMP, 3040-3, 48555-5, 1985-10, #### [facility] ([id number]) [address] [place] [address]Vbobyzwns/100 WBC (Bld)1.0 %NormalMercy Health St. [facility]'s [facility] Comment on above:Performed By: #### CBCA, CMP, 3040-3, 74772-4, 1987-10, #### [facility] ([id number]) [address] [place] [address]Kwoeeluyiuu (Bld) [#/Vol]0.1 10*3/uLNormal0.0-0.4[facility] Health St. Rita's Medical CenterComment on above:Performed By: #### CBCA, CMP, 3040-3, 65884-5, 1987-10, #### [facility] ([id number]) [address] [place] [address]Ouronzjgulg/100 WBC (Bld)1.0 %[facility] Comment on above:Performed By: #### CBCA, CMP, 3040-3, 51058-6, 1987-10, #### [facility] ([id number]) [address] [place] [address]Jgcolxzhaso distribution width (RBC) [Ratio]20.2 %High11.5-15.[address] Rita's Medical CenterComment on above:Performed By: #### CBCA, CMP, 3040-3, 89334-3, 1987-10, #### [facility] ([id number]) [address] [place] [address]Xmipbulwwm (Bld) [Volume fraction]31.2 %Yaj10-22JazOljuvbGraham Regional Medical CenterComment on above:Performed By: #### CBCA, CMP, 3040-3, 99315-8, 1987-10, #### [facility] ([id number]) [address] [place] [address]Dgeotxxgfx (Bld) [Mass/Vol]10.2 g/dLLow11.7-15.5PFostoria City HospitalComment on above:Performed By: #### CBCA, CMP, 3040-3, 86423-5, 1987-10, #### [facility] ([id number]) [address] [place] [address]Sblphrxssnc (Bld) [#/Vol]2.6 10*3/uLNormal1.0-3.5PFostoria City HospitalComment on above:Performed By: #### CBCA, CMP, 3040-3, 48551-5, 1987-10, #### [facility] ([id number]) [address] [place] [address] [id number]/100 WBC (Bld)44.6 %NormalMercy Health St[facility] Comment on above:Performed By: #### CBCA, CMP, 3040-3, 43908-9, 1987-10, #### [facility] ([id number]) [address] [place] [address] [id number] (RBC) [Entitic mass]23.5 ynUuw96-71RqeWnixtuGraham Regional Medical CenterComment on above:Performed By: #### CBCA, CMP, 3040-3, 77417-1, 1987-10, #### [facility] ([id number]) [address] [place] [address] 90040BJSI (RBC) [Mass/Vol]32.8 g/eLIkvuom64-50HqoAhenocGraham Regional Medical CenterComment on above:Performed By: #### CBCA, CMP, 3040-3, 40845-3, 1987-10, #### [facility] ([id number]) [address] [place] [address] [id number] (RBC) [Entitic vol]72 gYImy95-238WbqSpzcxbMercy Health St. [facility] Comment on above:Performed By: #### CBCA, CMP, 3040-3, 90891-6, 1987-10, #### [facility] ([id number]) [address] [place] [address] [id number] (Bld) [#/Vol]0.5 10*3/uLNormal0-0.9Mercy Health St. Rita's Medical CenterComment on above:Performed By: #### CBCA, CMP, 3040-3, 12965-8, 1987-10, #### [facility] [facility] ([id number]) [address] [place] [address] 78217Satiuznik/100 WBC (Bld)7.7 %NormalMercy Health St. [facility] Comment on above:Performed By: #### CBCA, CMP, 3040-3, 50720-5, 1987-10, #### [facility] ([id number]) [address] [place] [address] 56569Voamzabssmr/100 WBC (Bld)45.7 %[facility] Comment on above:Performed By: #### CBCA, CMP, 3040-3, 62543-1, 1987-10, #### [facility] ([id number]) [address] [place] [address] 04007Koguuvxp mean volume (Bld) [Entitic vol]7.5 fLNormal7-[address] [facility]'s Medical CenterComment on above:Performed By: #### CBCA, CMP, 3040-3, 77531-1, 1987-10, #### [facility] ([id number]) [address] [place] [address] 60038Tzeaftllv (Bld) [#/Vol]438 10*3/eMNgwkux141-779AsnGopvey Fremont HospitalComment on above:Performed By: #### MALINI, STEVE, 3040-3, 55698-6, 1987-10, #### [facility] ([id number]) [address] [place] [address] 95278EKT COUNT4.35 X10E12/LNormal3.80-5.20ProGraham [facility] Comment on above:Performed By: #### MALINI, STEVE, 3040-3, 94468-8, 1987-10, #### [facility] ([id number]) [address] [place] [address] 17972QHU (Bld) [#/Vol]5.9 10*3/uLNormal4.0-11.0ProGraham Regional Medical CenterComment on above:Performed By: #### STEVE NAYAK, 3040-3, 19157-5, 1987-10, #### [facility] ([id number]) [address] [place] [address] 25705EPYDCRPVQIEYL METABOLIC PANELon 61-92-3991Hbglrff [Mass/Vol]4.1 g/dLNormal3.2-5.3PFostoria City HospitalComment on above:Performed By: #### MALINI, STEVE, 3040-3, 77380-6, 1987-10, #### [facility] ([id number]) [address] [place] [address] 39816LKP [Catalytic activity/Vol]68 U/IObwfte56-994UayGmzfwmGraham Regional Medical CenterComment on above:Performed By: #### ARACELISA, CMP, 3040-3, 46694-7, 1987-10, #### [facility] ([id number]) [address] [place] [address] 35367PKZ [Catalytic activity/Vol]36 U/LHigh0-31PFostoria City HospitalComment on above:Performed By: #### STEVE NAYAK, 3040-3, 63452-0, 1987-10, #### [facility] ([id number]) [address] [place] [address] 80678Honnd gap [Moles/Vol]9 mmol/LNormal5-15ProGraham Regional Medical CenterComment on above:Performed By: #### STEVE NAYAK, 3040-3, 77822-4, 1987-10, #### [facility] ([id number]) [address] [place] [address] 32168NFF [Catalytic activity/Vol]30 U/LNormal0-41ProGraham Regional Medical CenterComment on above:Performed By: #### STEVE NAYAK, 3040-3, 61103-1, 1987-10, #### [facility] ([id number]) [address] [place] [address] 28085Reyuhrqjv [Mass/Vol]0.7 mg/dLNormal0.3-1.2PFostoria City HospitalComment on above:Performed By: #### STEVE NAYAK, 3040-3, 78848-8, 1987-10, #### [facility] ([id number]) [address] [place] [address] 60846Rikafsx [Mass/Vol]9.3 mg/dLNormal8.5-10.5PFostoria City HospitalComment on above:Performed By: #### STEVE NAYAK, 3040-3, 23556-2, 1987-10, #### [facility] ([id number]) [address] [place] [address] 51199Klaqtgsk [Moles/Vol]108 mmol/VAqvalm79-962HmbYudvosGraham Regional Medical CenterComment on above:Performed By: #### STEVE NAYAK, 3040-3, 70267-7, 1987-10, #### [facility] ([id number]) [address] [place], [place] [address]JP0 [Moles/Vol]22 mmol/RRfeapw94-30HyfTpyemjFostoria City Hospital Comment on above:Performed By: #### STEVE NAYAK, 3040-3, 69552-9, 1987-10, #### [facility] ([id number]) [address] [place] [address] 49087Wenobjvqow [Mass/Vol]0.75 mg/dLNormal0.40-1.00[facility] St. Rita's Medical CenterComment on above:Result Comment: METHOD TRACEABLE TO IDMS STANDARD Performed By: #### STEVE NAYAK, 0-3, , 1987-10, #### [facility] ([id number]) [address] [place] [address] 63867xASO (CKD-EPI) NON-RACE DEPENDENT>90Normal>59ProGraham Regional Medical CenterComment on above:Result Comment: Reported eGFR is based on the CKD-EPI 2020 equation that does not use a race coefficient.Performed By: #### STEVE NAYAK, 3040-3, 84392-4, , #### [facility] ([id number]) [address] [place] [address] 47748Gggghfu [Mass/Vol]103 mg/yYQjtm33-62NffTrhdnjMercy Health St. [facility]'s [facility] Comment on above:Performed By: #### STEVE NAYAK, 3040-3, 95068-6, 1987-10, #### [facility] ([id number]) [address] [place] [address] 61149Rtibxyvuo [Moles/Vol]3.8 mmol/LNormal3.5-5.0Mer[facility] St. Rita's Medical CenterComment on above:Performed By: #### STEVE NAYAK, 3040-3, 53243-7, 1987-10, #### [facility] ([id number]) [address] [place] [address] 79412Agksnxz [Mass/Vol]7.5 g/dLNormal6.0-8.0[facility]. Rita's Medical CenterComment on above:Performed By: #### STEVE NAYAK, 3040-3, 43943-9, 1987-10, #### [facility] ([id number]) [address] [place] [address] 05639Hentrw [Moles/Vol]139 mmol/UKqkwoz523-810DgtGdzlvw Fremont HospitalComment on above:Performed By: #### STEVE NAYAK, 3040-3, 01861-7, 1987-10, #### [facility] ([id number]) [address] [place] [address] 49110Zdbn nitrogen [Mass/Vol]7 mg/dLNormal5-23ProGraham Regional Medical CenterComment on above:Performed By: #### STEVE NAYAK, 3040-3, 94337-8, 1987-10, #### [facility] ([id number]) [address] [place] [address] 81624TIQFXQvc 15-83-1816Dpkykp [Catalytic activity/Vol]37 U/LNormal 17-40ProGraham Regional Medical CenterComment on above:Performed By: #### TSEVE NAYAK, 3040-3, 52067-4, 1987-10, #### [facility] ([id number]) [address] [place] [address] 11486Zmqybmw (P arely) [Moles/Vol]on 61-17-8818QBSBJPI W/REFLEX1.2 mmol/LNormal0.4-2.0Mer[facility] St. Rita's Medical CenterComment on above:Result Comment: Result did not trigger repeat Lactate, re-order if needed.Performed By: #### CBCA, CMP, 3040-3, 13041-3, 1987-10, #### [facility] ([id number]) [address] [place] [address] 62456POHXL CULTUREon 88-06-1225Djkgymta identified Cx Nom (U)CULTURE RESULTS 10-50,000 ORGANISMS/mL NORMAL UROGENITAL FLORAAvita Health System Galion Hospital Comment on above:Performed By: #### MALINI, CMP, 3040-3, 77891-8, 1987-10, #### [facility] ([id number]) [address] [place] [address] 58959QXY MACROSCOPIC NURon 22-91-2189DRIRWTKFH NURNegativeNormalNEG [facility]'s Medical CenterComment on above:Performed By: #### MALINI, CMP, 3040-3, 61188-3, 1987-10, #### [facility] ([id number]) [address] [place] [address] [place] [address]JWQTO/HGB NURTraceAbnormalNEGMercy Health St. Rita's Medical CenterComment on above:Performed By: #### MALINI, CMP, 3040-3, 25147-3, 1987-10, #### [facility] ([id number]) [address] [place] [address] [place] [address]VEXDKEA NURNegativeNormalNEGProGraham Regional Medical CenterComment on above:Performed By: #### ARACELISA, CMP, 3040-3, 21610-6, 1987-10, #### [facility] ([id number]) [address] [place] [address] [place] [address]BQYSVXU NURNegativeNormalNEGProGraham Regional Medical CenterComment on above:Performed By: #### ARACELISA, CMP, 3040-3, 78899-3, 1987-10, #### [facility] ([id number]) [address] [place] [address] [place] [address]XANMSAPEI ESTERASE NURTraceAbnormalNEGMercy Health St. Rita's Medical CenterComment on above:Performed By: #### MALINI, STEVE, 3040-3, 29852-4, 1987-10, #### [facility] ([id number]) [address] [place] [address] 80099EEYYOAL NURNegativeNormalNEGProGraham Regional Medical CenterComment on above:Performed By: #### MALINI, CMP, 3040-3, 32787-7, 1987-10, #### [facility] ([id number]) [address] [place] [address] 67040HG NUR6.2Mgjwpy8.0-8.5PFostoria City HospitalComment on above:Performed By: #### MALINI, STEVE, 3040-3, 55232-4, 1987-10, #### [facility] ([id number]) [address] [place] [address] 78960BDOEOSU [address]URNegativeNormalNEGMercy Health St. Rita's Medical CenterComment on above:Performed By: #### MALINI, STEVE, 3040-3, 85806-8, 1987-10, #### [facility] ([id number]) [address] [place] [address] 62522GWWIBZAD GRAVITY NUR1.319Xwerkf2.003-1.035ProGraham Regional Medical CenterComment on above:Performed By: #### ARACELISA, CMP, 3040-3, 37693-3, 1987-10, #### [facility] ([id number]) [address] [place] [address] 52035LOFWHZXPBAIT NUR1.0 eu/dLNormal<1.1PFostoria City Hospital Comment on above:Performed By: #### ARACELISA, CMP, 3040-3, 13556-5, 1987-10, 33444-7 #### [facility] ([id number]) [address] [place] [address], [place] [address].Auto Diff 146-97-2932Hiuo [place] %5 %Normal1-12Magruder HospitalComment on above:Performed By: #### [id number], 5197700, 45183651, 5155651371, [id number] ####[facility] (DEFAULT)[address] [place] [address] 99739Otkt Abs#0.1 q17Dqwuyj5.0-0.2Magruder HospitalComment on above: Performed By: #### [id number], 0059076, 64752108, 8757490529, 6711891662 ####[facility] (DEFAULT)[address] [place] [address] 18582 Basophils/100 WBC (Bld)1.0 %Normal0.2-2.0Mag[facility]uder HospitalComment on above: Performed By: #### [id number], 3683095, 89991874, 1876492568, 1618254109 ####[facility] (DEFAULT)[address] [place] [address] 27263Yjt Abs# 0.0 i48Iugjyw1.0-0.4[facility] HospitalComment on above:Performed By: #### [id number], 8539052, 97072131, 7010725588, 1419786791 ####[facility] (DEFAULT)[address] [place] [address] 29856Ybpwewvgnue/100 WBC (Bld)0.4 % Low0.9-4.0[facility]uder HospitalComment on above:Performed By: #### [id number], 6672703, 45234295, 0567619268, 7550947421 ####[facility] (DEFAULT)[address] [place] [address] 40174Ryjnc Abs#1.7 l74Gcjlcw3.3-2.9Mag[facility]uder HospitalComment on above:Performed By: #### 7395421184, 7898738, 06578059, 3186941322, 6754794367 ####[facility] (DEFAULT)[address] [place] [address] 73779Dusaeyhxqgd/100 WBC (Bld)27 %Jproof78-88Oqksnkgi Hospital Comment on above:Performed By: #### [id number], 4459737, 51342952, 6543483119, 8910805899 ####[facility] (DEFAULT)[address] [place] [address] 48074Clty Abs#0.3 o71Bcdviy5.0-0.8[facility] HospitalComment on above:Performed By: #### 9661052243, 3003045, 89698119, 9264410066, 6433161874 ####[facility] (DEFAULT)[address] [place] [address] 13149Dtvo Abs#4.2 o03Opvjdf 1.5-9.2M[facility] HospitalComment on above:Performed By: #### [id number], 4042843, 92408131, 0702802098, 7997962830 ####[facility] (DEFAULT)[address] [place] [address] 03879Gzvxxlctzcn/100 WBC (Bld)66 %Jihsqp07-49Osbuaafh HospitalComment on above:Performed By: #### 5472771889, 9215200, 21085933, 2869825579, 0069302293 ####[facility] (DEFAULT)[address] [place] [address] 52257IXB w/ Auto Diffon 25-28-4895Sdiclancpze distribution width (RBC) [Ratio]20.2 %High11.5-15.0[facility] HospitalComment on above:Performed By: #### [id number], 8738206, 34302243, 4692191304, 0768847913 ####[facility] (DEFAULT)[address] [place] [address] 88498Euawxbeqqt (Bld) [Volume fraction]34.5 %Dadqoa77.7-40.4[facility] HospitalComment on above:Performed By: #### 2071150384, 0539579, 46586680, 4648085901, 9454735712 ####[facility] (DEFAULT)[address] [place] [address] 18882Hlvbkdrvdo (Bld) [Mass/Vol]10.9 g/dLLow11.3-15.9[facility] HospitalComment on above:Performed By: #### 7465517094, 5534519, 61264755, 5908626943, 5839206625 ####[facility] (DEFAULT)[address] [place] [address] 24055Etm Diff?AutoInvalid Interpretation Code [facility] CenterComment on above:Performed By: #### [id number], 6957457, 17385824, 7246337123, 1823376779 ####[facility] (DEFAULT)[address] [place] [address] 83587FDZ (RBC) [Entitic mass]23 zuKlc87-75Vudkzvfk HospitalComment on above:Performed By: #### 0632241975, 6165849, 66241278, 5606886683, 3002396236 ####[facility] (DEFAULT)[address] [place] [address] 33050MHBL (RBC) [Mass/Vol]32 g/zWBiosfe46-12Tifnccxk HospitalComment on above:Performed By: #### 6601867738, 4408436, 70166195, 6552241088, 5487518017 ####[facility] (DEFAULT)[address] [place] [address] 98294JZC (RBC) [Entitic vol]72 pGQnd61-642Uaqvdeer HospitalComment on above: Performed By: #### 3198107232, 5431128, 23917383, 7923852800, 3780360802 ####[facility] (DEFAULT)[address] [place] [address] 15648Biosojhp 457 x65Jocg152-745Phbjsppq HospitalComment on above:Performed By: #### 0578619121, 9022930, 78888316, 1238655745, 4488449884 ####[facility] (DEFAULT)[address] [place] [address] 06367Oyymzupf mean volume (Bld) [Entitic vol]7.5 fLNormal6.3-10.2[facility] HospitalComment on above:Performed By: #### 1799723211, 3121496, 42574631, 7623429934, 8431122449 ####[facility] (DEFAULT)[address] [place] [address] 19636YLF2.77 l60Uxelpz0.70-5.30 [facility] HospitalComment on above:Performed By: #### 6002620201, 6376186, 45850517, 8151568527, 9454790926 ####[facility] (DEFAULT)[address] [place] [address] 20960FTN9.4 y64Eowvva7.5-10.5[facility] HospitalComment on above:Performed By: #### 9686703273, 9650450, 53407544, 3086421867, 3103929327 ####[facility] (DEFAULT)[address] [place] [address] 72487CUE Standardon 75-06-6484oKPF Non AA>60Invalid Interpretation [facility] Comment on above:Performed By: #### 4097680831, 9974497, 00639122, 3334672490, 9540190054 ####[facility] (DEFAULT)[address] [place] [address] 37020sKDU AA>60Invalid Interpretation [facility] Medical CenterComment on above: Performed By: #### 2170036280, 5121654, 11291675, 7961766826, 2187462595 ####[facility] (DEFAULT)[address] [place] [address] 55772Vbcofwe [Mass/Vol]4.3 g/dLNormal3.5-5.0[facility] HospitalComment on above:Performed By: #### 9302292909, 2295996, 88574242, 4399744865, 4115697916 ####[facility] (DEFAULT)[address] [place] [address] 47014Ytsqfoo/Globulin [Mass ratio] 1.0 {ratio}Low1.4-2.6[facility] HospitalComment on above:Performed By: #### 4830053762, 7457645, 93540462, 7733061870, 9632100895 ####[facility] (DEFAULT)[address] [place] [address] 50980Rth Phos63 IU/EBaldos02-87 [facility] HospitalComment on above:Performed By: #### 7409894441, 9356412, 69493109, 9075191724, 8140856211 ####[facility] (DEFAULT)[address] [place] [address] 30282TQJ [Catalytic activity/Vol]30.0 U/JZcbmtb38.0-54.0 [facility] HospitalComment on above:Performed By: #### 2741813520, 6745100, 08481108, 5853547327, 0540522311 ####[facility] (DEFAULT)[address] [place] [address] 21953Ossmk gap [Moles/Vol]12.9 mmol/LNormal5.0-19.0 [facility] HospitalComment on above:Performed By: #### 7228959919, 9015014, 26328893, 2249904143, 2076192682 ####[facility] (DEFAULT)[address] [place] [address] 72170TUA [Catalytic activity/Vol]22 U/AYftaar45-14 [facility] HospitalComment on above:Performed By: #### 7827538979, 1824517, 26611351, 1572749325, 4234392345 ####[facility] (DEFAULT)[address] [place] [address] 11811Ysnd Total0.5 mg/dLNormal0.3-1.2[facility] Comment on above:Performed By: #### 7334734746, 3914419, 02211021, 7230193270, 2922195785 ####[facility] (DEFAULT)[address] [place] [address] 70478Zoveonv [Mass/Vol]9.3 mg/dLNormal8.9-10.3[facility] HospitalComment on above: Performed By: #### 4275828873, 3703975, 11195831, 1150710806, 5168504038 ####[facility] (DEFAULT)[address] [place] [address] 53111Esamyuok [Moles/Vol]106 mmol/PSycink525-981Tcjfvbrw HospitalComment on above:Performed By: #### 2099158179, 8061248, 73727963, 7262961711, 6348518870 ####[facility] (DEFAULT)[address] [place] [address] 91862TF3 [Moles/Vol]22 mmol/CVnuvyj36-71Fykkfpmi HospitalComment on above:Performed By: #### 7971350174, 6912958, 83974735, 6856922825, 9849427797 ####[facility] (DEFAULT)[address] [place] [address] 35866Xhbjembrdo [Mass/Vol]0.70 mg/dL Normal0.60-1.30[facility] HospitalComment on above:Performed By: #### 8382438040, 3128209, 34217485, 5377504744, 3877154461 ####[facility] (DEFAULT)[address] [place] [address] 95353Jazhwzyr (S) [Mass/Vol]4.0 g/dLNormal1.5-4.3 [facility] CenterComment on above:Performed By: #### 6767148345, 0516044, 10266233, 8351434395, 5252298494 ####[facility] (DEFAULT)[address] [place] [address] 58945Kdocbrj [Mass/Vol]109.0 mg/qOZjncnx62.0-118.0 [facility] CenterComment on above:Performed By: #### 9198668740, 9430215, 49050190, 6145359748, 7633824577 ####[facility] (DEFAULT)[address] [place] [address] 37856Qsafdjwrnk939 mOsm/LInvalid Interpretation Code [facility] CenterComment on above:Performed By: #### 6922341762, 2113155, 29395995, 9907051134, 2980563987 ####[facility] (DEFAULT)[address] [place] [address] 22553Apdptmrrx [Moles/Vol]3.9 mmol/LNormal3.6-5.1[facility] HospitalComment on above:Performed By: #### 3633954485, 7062582, 52691115, 4122823450, 2967296331 ####[facility] (DEFAULT)[address] [place] [address] 08170Efirerx [Mass/Vol]8.3 g/dLHigh6.5-8.1[facility] HospitalComment on above:Performed By: #### 5822142040, 4673420, 07641515, 0692077589, 5773006027 ####[facility] (DEFAULT)[address] [place] [address] 79963Ptmpay [Moles/Vol]137.0 mmol/TJwwlqo477.0-144.0[facility] HospitalComment on above:Performed By: #### 9115481127, 9842838, 54908291, 5430699548, 7000558040 ####[facility] (DEFAULT)[address] [place] [address] 57019Mpcp nitrogen [Mass/Vol]7 mg/dLLow8-26[facility] HospitalComment on above:Performed By: #### 9452558612, 4750974, 44365064, 0111147546, 4197764601 ####[facility] (DEFAULT)[address] [place] [address] 78795Pwbk nitrogen/Creatinine [Mass ratio]10.0 mg/mgNormal4.6-16.2[facility] HospitalComment on above:Performed By: #### 2461685623, 3523947, 89225524, 9909120745, 3357340762 ####[facility] (DEFAULT)[address] [place] [address] 93366UC Abdomen/Pelvis w/ Contraston 01-77-9061ZJ Abdomen/Pelvis w/ Contrast EXAMINATION: CT Abdomen/Pelvis w/ [...] has not been removed. Final Dictated by: Brando Infante MD Dictated DT/TM: 06/08/24 9:30 Signed (Electronic Signature): Brando Infante MD 06/08/24 9:36 pm Technologist: [facility]ED Clinical Summaryon [id number] Clinical [facility] - Emergency Department [address] [place], [place] [id number] ED Clinical Summary PERSON INFORMATION Name: ANTONIA NOYOLA Age: 39 Years Sex: FEMALE : 1985 MRN: Acct#: Visit Reason: Flank pain; Abdominal pain; ABDOMINAL PAIN Arrival: 06/08/2024 17:53:36 Discharge: 06/08/2024 22:16:00 LOS: 000 04:23 Check In: 06/08/2024 17:53:36 Checkout:06/08/2024 22:16:00 Address: [address] [place] [address] PCP: Provider, None PROVIDER INFORMATION Provider Role Assigned Unassigned Jasmyn Magana MD ED Provider 06/08/2024 18:36:34 Kendra Tobar [employer] Nurse 06/08/2024 18:45:19 Radha Shabazz [employer] Nurse 06/08/2024 19:29:52 Sandeep Corea MD ED [...] in female patient Patient Understands: Yes - Patient/family/caregiver verbalizes understanding of instructions given Comment:[facility] Summaryon [id number] Patient Summary [facility] - Emergency Department [address] [place] [address] PATIENT DISCHARGE INSTRUCTIONS Patient Information Name: ANTONIA NOYOLA Age: 39 Years Date of : 1985 Reason For Visit: Flank pain; Abdominal pain; ABDOMINAL PAIN Arrival Time: 06/08/2024 17:53:36 Primary Care Physician: Provider, None Attending Physician: Jasmyn Magana MD Comment: Visit Diagnosis: Diagnoses This Visit Abdominal pain ([id number]) Abdominal pain (R10.9) Abdominal pain in female patient (R10.9) Flank pain ([id number]) The Pharmacy at [facility] is open Tuesday through Tuesday from 9A to 6P and Tuesday and Tuesday from 9A to 5P Prescription Information: If you have been given a prescription for narcotics, seek immediate medical attention if you have any difficulty breathing or any sudden status changes such as confusion andsleepiness. If you or anyone you know is experiencing suicidal thoughts, mental health, alcohol and/or drug addiction problems; contact the [facility] 03/01 Crisis Hotline -Text 0KUHD yp 838560. If you received any narcotics, sedation, or [...] and treatment you received today in the [facility] Emergency Department were for an urgent problem and are not intended as complete care. It is important for you to follow up with a doctor, nurse practitioner, or physician?s program assistant for ongoing care. If your symptoms become worse or you donot improve as expected and you are unable [...] so we can reach you if necessary. [facility] Emergency Department has provided you with a complete list of medications post discharge. Please inform your construction estimator/provider of your visit and for further instruction [...] found Patient Education Endometriosis Follow-up with your VIDEO SYSTEM REPAIRER to review this emergency department visit and [...] Heavier bleeding during menstrual (more content not included)...[facility] HospitalExtra Redon [id number] CollectedYesInvalid Interpretation Code [facility] CenterComment on above:Performed By: #### [id number], [id number], [id number] ####[facility] (DEFAULT)[address] [place] [address] [id number] Test Urine 1on 06-08-2024U PregNegative [facility] HospitalComment on above:Performed By: #### [id number], [id number] #### [facility] (DEFAULT) [address] [place] [address] [id number] Preg Internal ControlPassNormalCincinnati Va Medical CenterComment on above:Performed By: #### [id number], [id number] #### [facility] (DEFAULT) [address] [place] [address] [id number] Note - Nurseon [id number] Note - Nurse This nurse verified with patient that she had a ride [...] [Verified on: 06/08/2024 22:16 EST] Radha Shabazz RNNoCleveland Clinic Marymount HospitalUA w Culture if Ind Standardon [id number] UANormalCincinnati Va Medical CenterComment on above:Performed By: #### [id number], [id number] #### [facility] (DEFAULT) [address] [place] [address] [id number] (U)StrawNormRiverside Methodist HospitalComment on above: Performed By: #### [id number], [id number] #### [facility] (DEFAULT) [address] [place] [address] [id number]?Not IndicatedInvalid Interpretation CodeCincinnati Va Medical CenterComment on above:Result Comment: Result created by rule GL_MAGR_ADD_UA_CULT1 Result created by rule GL_MAGR_ADD_UA_CULT1Performed By: #### [id number], [id number] #### [facility] (DEFAULT) [address] [place] [address] [id number] (U) [Mass/Vol]NegativeNoCleveland Clinic Marymount Hospital Comment on above:Performed By: #### [id number], [id number] #### [facility] (DEFAULT) [address] [place] [address] 11098Sliivia Ql (U)NegativeNormalMagruder HospitalComment on above:Performed By: #### [id number], [id number] #### [facility] (DEFAULT) [address] [place] [address] 05928Scgkl?Not IndicatedInvalid Interpretation CodeMagruder HospitalComment on above:Result Comment: Result created by rule GL_MAGR_ADD_UA_MICRO Result created by rule GL_MAGR_ADD_UA_MICROPerformed By: #### [id number], [id number] #### [facility] (DEFAULT) [address] [place] [address] 44551DS BilirubinNegativeNormalMagruder HospitalComment on above:Performed By: #### [id number], [id number] #### [facility] (DEFAULT) [address] [place] [address] 07408PS BloodNegativeNormalNEGATIVEMagruder HospitalComment on above:Performed By: #### [id number], [id number] #### [facility] (DEFAULT) [address] [place] [address] 95447QT ClarityCLEARNormalCLEARMagruder HospitalComment on above:Performed By: #### [id number], [id number] #### [facility] (DEFAULT) [address] [place] [address] 59671HS Leuk EstNegativeNormalNEGATIVEMagruder HospitalComment on above:Performed By: #### [id number], [id number] #### [facility] (DEFAULT) [address] [place] [address] 99414BU NitriteNegativeNormalNEGATIVEMagruder HospitalComment on above:Performed By: #### [id number], [id number] #### [facility] (DEFAULT) [address] [place] [address] 81283LS pH7.1Jtcold4-7Whbdfdvj HospitalComment on above: Performed By: #### [id number], [id number] #### [facility] (DEFAULT) [address] [place] [address] 45334XH ProteinNegativeNormalNEGATIVECincinnati Va Medical CenterComment on above:Performed By: #### [id number], [id number] #### [facility] (DEFAULT) [address] [place] [address] 71563JY Spec Grav<=1.350Hupbrh7.001-1.035[facility] Comment on above:Performed By: #### [id number], [id number] #### [facility] (DEFAULT) [address] [place] [address] 42831VA Urobilinogen0.2 mg/dLNormal0.2-1.0[facility] Comment on above:Performed By: #### [id number], [id number] #### [facility] (DEFAULT) [address] [place] [address] 68329Vsjna SourceClean CatchNormRiverside Methodist HospitalComment on above:Performed By: #### [id number], [id number] #### [facility] (DEFAULT) [address] [place] [address] 74581PCB AND AUTO DIFFon 66-60-7554UQKBADZG BASOPHIL0.1 X10E9/L Normal0.0-0.2PFostoria City HospitalComment on above:Performed By: #### CBCA, CMP, 3040-3, 68884-7, #### [facility] ([id number]) [address] [place] [address] 80161RZSFHWWJ NEUTROPHIL4.9 X10E9/LNormal1.5-6.6[facility]. Rita's Medical CenterComment on above:Performed By: #### CBCA, CMP, 3040-3, 87909-9, #### [facility] ([id number]) [address] [place] [address] 70913Uixkzmesw/100 WBC (Bld)0.9 %NormalMercy Health St. Rita's Medical Center Comment on above:Performed By: #### CBCA, CMP, 3040-3, , 1987-10, #### [facility] ([id number]) [address] [place] [address] 71177Fuphqqjrbon (Bld) [#/Vol]0.1 10*3/uLNormal0.0-0.4Mer[facility] St. Rita's Medical CenterComment on above:Performed By: #### CBCSTEVE Mireles, 3039-3, , 1987-10, #### [facility] ([id number]) [address] [place] [address] 87799Rxnbinlimdo/100 WBC (Bld)0.7 %NormalProGraham Regional Medical Center Comment on above:Performed By: #### STEVE NAYAK, 3039-3, , 1987-10, #### [facility] ([id number]) [address] [place] [address] 54271Malwjfiqjue distribution width (RBC) [Ratio]19.6 %High11.5-15.0 ProMMercy HospitalComment on above:Performed By: #### STEVE NAYAK, 3039-3, , 1987-10, #### [facility] ([id number]) [address] [place] [address] 85572Pmbvmfjsdj (Bld) [Volume fraction]35.6 %Uwaskl33-76VakUsofipGraham Regional Medical CenterComment on above:Performed By: #### CBCA, CMP, 0-3, 80239-6, 1987-10, #### [facility] ([id number]) [address] [place] [address] 99701Bvhnspayaf (Bld) [Mass/Vol]11.2 g/dLLow11.7-15.5Pro[facility] Vacavalley HospitalComment on above:Performed By: #### CBCA CMP, 3039-3, , 1987-10, #### [facility] ([id number]) [address] [place] [address] 69830Kzwgknmvbgv (Bld) [#/Vol]2.5 10*3/uLNormal1.0-3.5PO[facility] Centerica Northbay Vacavalley HospitalComment on above:Performed By: #### CBCA, CMP, 3040-3, 52218-4, 1987-10, #### [facility] ([id number]) [address] [place] [address] 58240Ouqskyltsow/100 WBC (Bld)31.5 %NormalMercy Health St. Rita's Medical Center Comment on above:Performed By: #### CBCA, CMP, 3040-3, 42341-5, 1987-10, #### [facility] ([id number]) [address] [place] [address] 13628PFR (RBC) [Entitic mass]22.7 qkVxw08-20ScsRmjvarMercy Health St. Rita's Medical CenterComment on above:Performed By: #### CBCA, CMP, 3040-3, 77138-5, 1987-10, #### [facility] ([id number]) [address] [place] [address] 26038NXZG (RBC) [Mass/Vol]31.4 g/wPMag62-06GagTjaxcdMercy Health St. Rita's Medical CenterComment on above:Performed By: #### CBCA, CMP, 3040-3, 82677-6, 1987-10, #### [facility] ([id number]) [address] [place] [address] 92569UKI (RBC) [Entitic vol]72 fUWxs15-515KtyIyqnvnMercy Health St. Rita's Medical Center Comment on above:Performed By: #### CBCA, CMP, 3040-3, 12679-9, 1987-10, #### [facility] ([id number]) [address] [place] [address] 40408Sbhdddsnu (Bld) [#/Vol]0.4 10*3/uLNormal0-0.9Mer[facility] St. Rita's Medical CenterComment on above:Performed By: #### CBCA, CMP, 3040-3, 43105-5, 1987-10, #### [facility] ([id number]) [address] [place] [address] 11774Xjwreffpv/100 WBC (Bld)5.4 %[facility] Comment on above:Performed By: #### CBCA, CMP, 3040-3, , 1987-10, #### [facility] ([id number]) [address] [place] [address] 37803Sckujjozcjh/100 WBC (Bld)61.5 %[facility] Comment on above:Performed By: #### CBCChi, CMP, 3040-3, , 1987-10, #### [facility] ([id number]) [address] [place] [address] 22091Iqhdufst mean volume (Bld) [Entitic vol]7.7 fLNormal7-[address] Rita's Medical CenterComment on above:Performed By: #### CBCA, CMP, 3040-3, , 1987-10, #### [facility] ([id number]) [address] [place] [address] 34124Rtzfximph (Bld) [#/Vol]451 10*3/zAMxmo333-416IhdWgiyhvMercy Health St. Rita's Medical CenterComment on above:Performed By: #### CBCA, CMP, 3040-3, 92557-5, 1987-10, #### [facility] ([id number]) [address] [place] [address] 02415DJB COUNT4.93 X10E12/LNormal3.80-5.20[facility] Comment on above:Performed By: #### MALINI, CMP, 3040-3, 35099-6, 1987-10, #### [facility] ([id number]) [address] [place] [address] 04739LVS (Bld) [#/Vol]8.0 10*3/uLNormal4.0-11.0ProGraham Regional Medical CenterComment on above:Performed By: #### MALINI, CMP, 3040-3, 57838-0, 1987-10, #### [facility] ([id number]) [address] [place] [address] 91746ARBNYXZMEPSBZ METABOLIC PANELon 25-20-9292Eqtxlxj [Mass/Vol]4.6 g/dLNormal3.2-5.3PFostoria City HospitalComment on above:Performed By: #### MALINI, STEVE, 3040-3, 42474-8, 1987-10, #### [facility] ([id number]) [address] [place] [address] 09765GRP [Catalytic activity/Vol]67 U/DOsplde29-194GvjYvxhemGraham Regional Medical CenterComment on above:Performed By: #### STEVE NAYAK, 3040-3, 35534-0, 1987-10, #### [facility] ([id number]) [address] [place] [address] 26476KHJ [Catalytic activity/Vol]14 U/LNormal0-31PFostoria City HospitalComment on above:Performed By: #### ARACELISA, CMP, 3040-3, 60465-7, 1987-10, #### [facility] ([id number]) [address] [place] [address] 33524Inbpd gap [Moles/Vol]13 mmol/LNormal5-15ProGraham Regional Medical CenterComment on above:Performed By: #### MALINI, STEVE, 3040-3, 82072-6, 1987-10, #### [facility] ([id number]) [address] [place] [address] 38447HVT [Catalytic activity/Vol]19 U/LNormal0-41ProGraham Regional Medical CenterComment on above:Performed By: #### MALINI, STEVE, 3040-3, 13951-5, 1987-10, #### [facility] ([id number]) [address] [place] [address] 78285Ddzqvzdoj [Mass/Vol]0.3 mg/dLNormal0.3-1.2PFostoria City HospitalComment on above:Performed By: #### STEVE NAYAK, 3040-3, 30060-2, 1987-10, #### [facility] ([id number]) [address] [place] [address] 99670Ilewvdz [Mass/Vol]10.0 mg/dLNormal8.5-10.5PFostoria City HospitalComment on above:Performed By: #### STEVE NAYAK, 3040-3, 40008-7, 1987-10, #### [facility] ([id number]) [address] [place] [address] 22922Isjerdoa [Moles/Vol]105 mmol/RGlwxba51-248VosRwzscwGraham Regional Medical CenterComment on above:Performed By: #### MALINI, STEVE, 3040-3, 11547-6, 1987-10, #### [facility] ([id number]) [address] [place] [address] 78897KF5 [Moles/Vol]21 mmol/VAvd60-22RcwUfebpnFostoria City Hospital Comment on above:Performed By: #### STEVE NAYAK, 3040-3, 50195-0, 1987-10, #### [facility] ([id number]) [address] [place] [address] 14639Vjvkidbcir [Mass/Vol]0.97 mg/dLNormal0.40-1.00ProGraham Regional Medical CenterComment on above:Result Comment: METHOD TRACEABLE TO IDMS STANDARD Performed By: #### STEVE NAYAK, 3040-3, 93459-3, 1987-10, #### [facility] ([id number]) [address] [place] [address] 48208AYD/1.73 sq M.predicted among non-blacks MDRD (S/P/Bld) [Vol rate/Area]77 mL/min/{1.73_m2}Normal>59ProGraham Regional Medical CenterComment on above:Result Comment: Reported eGFR is based on the CKD-EPI 2020 equation that does not use a race coefficient.Performed By: #### STEVE NAYAK, 3040-3, , , #### [facility] ([id number]) [address] [place] [address] 90925Vfbhhsg [Mass/Vol]98 mg/pHIbpsow35-88QubRabdkjMercy Health St. Rita's Medical Center Comment on above:Performed By: #### STEVE NAYAK, 3040-3, , 1987-10, #### [facility] ([id number]) [address] [place] [address] 76841Eqdiouhfm [Moles/Vol]3.7 mmol/LNormal3.5-5.0ProGraham Regional Medical CenterComment on above:Performed By: #### STEVE NAYAK, 3040-3, , #### [facility] ([id number]) [address] [place] [address] 56925Cjbxvya [Mass/Vol]8.3 g/dLHigh6.0-8.0[facility] Comment on above:Performed By: #### MALINI, STEVE, 3040-3, 37682-3, 1987-10, #### [facility] ([id number]) [address] [place], [place] [address]Rqswxj [Moles/Vol]139 mmol/ACofqmg493-827MvtYjmkax Fremont HospitalComment on above:Performed By: #### ARACELISA, STEVE, 3040-3, 99236-0, 1987-10, #### [facility] ([id number]) [address] [place] [address] 09511Cagy nitrogen [Mass/Vol]11 mg/dLNormal5-ProGraham Regional Medical CenterComment on above:Performed By: #### MALINI, STEVE, 3040-3, 49689-2, 1987-10, #### [facility] ([id number]) [address] [place] [address] 95686BO ABDOMEN AND PELVIS W CONTon 22-36-6060YS ABDOMEN AND PELVIS W CONTCT ABDOMEN AND PELVIS W CONT HISTORY: A 39-year-old female with the history of the right lower quadrant abdominal pain. There isalso a history of cholecystectomy and hysterectomy. EXAM/TECHNIQUE: [...] by Giovanni Lang MD on 06/05/2024 8:30 PMNormalProGraham Regional Medical CenterHCG ( test) Ql (U)on 42-87-9536Iyma HCG ( test) Ql (U) NegativeNormalNEGMercy Health St. Rita's Medical CenterComment on above:Performed By: #### STEVE NAYAK, 3040-3, 83262-9, 1987-10, #### [facility] ([id number]) [address] [place] [address] 20079CFLCATkz 72-24-1337Altbss [Catalytic activity/Vol]44 U/LHigh 17-40ProGraham Regional Medical CenterComment on above:Performed By: #### STEVE NAYAK, 3040-3, 99701-1, 1987-10, #### [facility] ([id number]) [address] [place] [address] 61996BGU MACROSCOPIC NURon 52-14-4084GEQFNDTWJ NURNegativeNormalNEG ProMMercy HospitalComment on above:Performed By: #### MALINI, CMP, 3040-3, 33905-8, 1987-10, #### [facility] ([id number]) [address] [place] [address] 81675TWGIX/HGB NURNegativeNormalNEGProGraham Regional Medical CenterComment on above:Performed By: #### CBCA, CMP, 3040-3, 54428-1, 1987-10, #### [facility] ([id number]) [address] [place] [address] 48441RLEUNKJ NURNegativeNormalNEGProGraham Regional Medical CenterComment on above:Performed By: #### ARACELISA, CMP, 3040-3, 97452-7, 1987-10, #### [facility] ([id number]) [address] [place] [address] [place] [address]ECMDISQ NURNegativeNormalNEGProGraham Regional Medical CenterComment on above:Performed By: #### MALINI, CMP, 3040-3, 11321-4, 1987-10, #### [facility] ([id number]) [address] [place] [address] [place] [address]CRUHIPWUT ESTERASE NURNegativeNormalNEGProMagruder Hospital HospitalComment on above:Performed By: #### MALINI, STEVE, 3040-3, 08726-2, 1987-10, #### [facility] ([id number]) [address] [place] [address] [place] 76853ISJEYQH NURNegativeNormalNEGProGraham Regional Medical CenterComment on above:Performed By: #### MALINI, STEVE, 3040-3, 75741-3, 1987-10, #### [facility] ([id number]) [address] [place] [address] 37612AK NUR7.2Zyffjk0.0-8.5Pro[facility] Vacavalley HospitalComment on above:Performed By: #### MALINI, STEVE, 3040-3, 30740-2, 1987-10, #### [facility] ([id number]) [address] [place] [address] [place] [address]SIQWZUY NURNegativeNormalNEGProOhiohealth Van Wert Hospitalca New [place] HospitalComment on above:Performed By: #### MALINI, CMP, 3040-3, 39283-6, 1987-10, #### [facility] ([id number]) [address] [place] [address] [place] [address]GTJTPPAL GRAVITY NUR1.763Uydard1.003-1.035ProOhiohealth Van Wert Hospitalca New Cuyama HospitalComment on above:Performed By: #### MALINI, CMP, 3040-3, 12284-6, 1987-10, #### [facility] ([id number]) [address] [place] [address], [place], [place] [address]SBKQARVAKTTV NUR1.0 eu/dLNormal<1.1PFostoria City Hospital Comment on above:Performed By: #### CBCA, CMP, 3040-3, 47290-4, 1987-10, #### [facility] ([id number]) [address] [place] [address], [place], [place] [address]UBI with Diffon 82-37-7996Mporsganto Edson (Bld) [Interp]SLIGHT NormalSumma Health Barberton CampusComment on above:Result Comment: MICROCYTOSIS Performed By: #### CP, CDP #### [facility] [address] [id number] Embedded Case Manager: Jennifer Freire MDUrinalysis, Routineon 92-04-4042Kirmjzsgb, SemiQt,UrNegativeNormalNEGSumma Health Barberton CampusComment on above:Performed By: #### MARCELA GAMBOA #### [facility] [address] [place] [address] Embedded Case Manager: Stacy Davis, UrineTRACEAbnoLicking Memorial Hospital Comment on above:Performed By: #### BEE UMICAO #### [facility] [address] [place] [address] Embedded Case Manager: JAMESON Davislarity (U)ClearNormalCLEARSumma Health Barberton Campus Comment on above:Performed By: #### BEE UMICAO #### [facility] [address] [place] [address] Embedded Case Manager: JAMESON Davisolor (U)YellowNormalYAvita Health System [facility] Comment on above:Performed By: #### UA, UMICAO #### [facility] [address] [place] [address] Embedded Case Manager: JAMESON DavisommentNormSt. Mary's Medical CenterComment on above:Performed By: #### BEE UMICAO #### [facility] [address] [place], [place] 7176690 Embedded Case Manager: Jennifer Freire MDGlucose Ql (U)NegativeNormalNEGSumma Health Barberton CampusComment on above:Performed By: #### UA, UMICAO #### [facility] [address] [place], [place] [address] Embedded Case Manager: Jennifer Freire MDKetones Ql (U)NegativeNormalNEGSumma Health Barberton CampusComment on above:Performed By: #### BEE UMICAO #### [facility] [address] [place], [place] [id number] Embedded Case Manager: Jennifer Freire MDLeukocyte esterase Test strip Ql (U)NegativeNormal NEGSumma Health Barberton CampusComment on above:Performed By: #### BEE UMICAO #### [facility] [address] [place], [place] [address] Embedded Case Manager: Jennifer Freire MDNitrite,UrNegativeNormSt. John of God Hospital Comment on above:Performed By: #### BEE UMICAO #### [facility] [address] [place] [address] Embedded Case Manager: MIGUEL ÁNGEL Davis,Ur7.8Sntvae0.0-8.0Mercy 81st Medical Groupment on above:Performed By: #### BEE UMICAO #### [facility] [address] [place] [address] Embedded Case Manager: MIGUEL ÁNGEL Davisrotein Ql (U)NegativeNormalNEGMerHudson River Psychiatric CenterComment on above:Performed By: #### BEE UMICAO #### [facility] [address] [place] [address] Embedded Case Manager: Valerio Davis. [place],Ur1.450Bioxua1.005-1.030Sum[facility] Health Barberton CampusComment on above:Performed By: #### UA, UMICAO #### [facility] [address] [place] [address] Embedded Case Manager: Edwige Davisbilinogen,UrNormalNormal0.0-1.0Sum[facility] Barber[facility] CampusComment on above:Performed By: #### BEE UMICAO #### [facility] [address] [place] [address] Embedded Case Manager: Jennifer Freire MDUrinalysis,Microon 05-28-2024-----NormalSumma Health Barberton CampusComment on above:Performed By: #### BEE UMICAO #### [facility] [address] [place] [address] Embedded Case Manager: Huan Davis RBC's2 TO 9Wkngda2-3ZcinsOhioHealth Southeastern Medical Center Comment on above:Performed By: #### BEE UMICAO #### [facility] [address] [place] [address] Embedded Case Manager: Huan Davis WBC'sNone SmpwBkwjsq2GvdrqSumma Health Barberton Campus Comment on above:Performed By: #### BEE, UMICAO #### [facility] [address] [place] [address] Embedded Case Manager: CHUNG Davis with Diffon [id number]. Basophil0.03 k/uL Normal0.00-0.20Sum[facility] Health Barberton CampusComment on above:Performed By: #### CP, CDP #### [facility] [address] [place] [address] Embedded Case Manager: Sanford Davis.Imm.Granulocyte0.01 k/uLNormal0.00-0.30Sum[facility] Health Barber[facility] CampusComment on above:Performed By: #### CP, CDP #### [facility] [address] [place] [address] Embedded Case Manager: Sanford Davis.Neutrophil (Seg)4.33 k/uLNormal2.5-7.0Sum[facility] Health Barber[facility] CampusComment on above:Performed By: #### CP, CDP #### [facility] [address] [id number] Embedded Case Manager: Jennifer Freire MDBasophils/100 WBC (Bld)0 %Normal0-2MOhioHealth Southeastern Medical CenterComment on above:Performed By: #### CP, CDP #### [facility] [address] [id number] Embedded Case Manager: Jennifer Freire MDEosinophils (Bld) [#/Vol]0.08 10*3/uLNormal 0.00-0.40Sum[facility] Health Barber[facility] CampusCommymichigan medical center sault on above:Performed By: #### CP, CDP #### [facility] [address] [id number] Embedded Case Manager: VIVIENNE Davisosinophils/100 WBC (Bld)1 %Normal0-5Summa Health Barberton CampusComment on above:Performed By: #### CP, CDP #### [facility] [address] [id number] Embedded Case Manager: Jennifer Freire MDErythrocyte distribution width (RBC) [Ratio]17.2 % High12.1-15.2MOhioHealth Southeastern Medical CenterCommymichigan medical center sault on above:Performed By: #### CP, CDP #### [facility] [address] [id number] Embedded Case Manager: Jennifer Freire MDHematocrit (Bld) [Volume fraction]36.4 %Normal 36.0-46.0Sum[facility] Health Barberton CampusComment on above:Performed By: #### CP, CDP #### [facility] [address] [id number] Embedded Case Manager: Jennifer Freire MDHemoglobin (Bld) [Mass/Vol]11.4 g/dLLow12.0-16.0 [facility] Barber[facility] CampusComment on above:Performed By: #### CP, CDP #### [facility] [address] [id number] Embedded Case Manager: Darrin Davismature granulocytes/100 WBC (Bld)0 %Normal0-5 [facility] on above:Performed By: #### CP, CDP #### [facility] [address] [place] [address] Embedded Case Manager: Jennifer Freire MDLymphocytes (Bld) [#/Vol]3.24 10*3/uLNormal 1.00-4.80Sum[facility] Health Barber[facility] CampusCommymichigan medical center sault on above:Performed By: #### CP, CDP #### [facility] [address] [id number] Embedded Case Manager: Orlin Davismphocytes/100 WBC (Bld)40 %Mhzkaw27-97RbfiwSumma Health Barberton CampusCommymichigan medical center sault on above:Performed By: #### CP, CDP #### [facility] [address] [id number] Embedded Case Manager: VANESSA DavisCH (RBC) [Entitic mass]22.6 pgLow26.0-34.0Sum[facility] Health Barber[facility] CampusCommymichigan medical center sault on above:Performed By: #### CP, CDP #### [facility] [address] [place] [address] Embedded Case Manager: ANTONIA DavisC (RBC) [Mass/Vol]31.3 g/uFXxehsi42.0-37.0[facility] on above:Performed By: #### CP, CDP #### [facility] [address] [id number] Embedded Case Manager: VANESSA DavisCV (RBC) [Entitic vol]72.2 fLLow80.0-100.0[facility] [place] on above:Performed By: #### CP, CDP #### [facility] [address] [place] [id number] Embedded Case Manager: VANESSA Davisonocytes (Bld) [#/Vol]0.51 10*3/uLNormal0.00-1.00 [facility] [place] on above:Performed By: #### CP, CDP #### [facility] [address] [place] [address] Embedded Case Manager: VANESSA Davisonocytes/100 WBC (Bld)6 %Normal4-8[facility] [place] on above:Performed By: #### CP, CDP #### [facility] [address] [place] [id number] Embedded Case Manager: Santana Davisutrophil (Seg)53 %Pnwbsu40-13MotlcSelect Medical [facility] Clinic [facility] [place] on above:Performed By: #### CP, CDP #### [facility] [address] [place] [address] Embedded Case Manager: Ajit Davistelet mean volume (Bld) [Entitic vol]9.3 fL Normal6.0-12.0[facility] [place] on above:Performed By: #### CP, CDP #### [facility] [address] [place] [id number] Embedded Case Manager: MIGUEL ÁNGEL Davislatelets (Bld) [#/Vol]583 10*3/gIMrfk750-490JzaleSelect Medical [facility] [place] on above:Performed By: #### CP, CDP #### [facility] [address] [place], [place] [id number] Embedded Case Manager: PRITI Davis ([facility]) [#/Vol]5.04 10*6/uLNormal4.00-5.20[facility] HospitalComment on above:Performed By: #### CP, CDP #### [facility] [address] [place] [id number] Embedded Case Manager: DAVID Davis ([facility]) [#/Vol]8.2 10*3/uLNormal3.5-11.0[facility] CampusComment on above:Performed By: #### CP, CDP #### [facility] [address] [place] [address] Embedded Case Manager: JAMESON Davishuntsman mental health institute Metabolic Profon [id number] [Mass/Vol] 4.7 g/dLNormal3.5-5.2MOhioHealth Southeastern Medical CenterComment on above:Performed By: #### CP, CDP #### [facility] [address] [place] [id number] Embedded Case Manager: Nieves Davis Phos92 U/TYsrjac79-573OswdmSumma Health Barberton CampusComment on above:Performed By: #### CP, CDP #### [facility] [address] [place] [address] Embedded Case Manager: Jennifer Freire MDALT [Catalytic activity/Vol]16 U/LNormal5-33Summa Health Barberton CampusComment on above:Performed By: #### CP, CDP #### [facility] [address] [place] [address] Embedded Case Manager: Jennifer Freire MDAniemmy gap [Moles/Vol]14 mmol/LNormal9-17Sum[facility] Barberton CampusComment on above:Performed By: #### CP, CDP #### [facility] [address] [place] [address] Embedded Case Manager: Jennifer Freire MDAST [Catalytic activity/Vol]17 U/LNormal<32[facility] CampusComment on above:Performed By: #### CP, CDP #### [facility] [address] [place] [address] Embedded Case Manager: Jennifer Freire MDBilirubin [Mass/Vol]0.2 mg/dLLow0.3-1.2MOhioHealth Southeastern Medical CenterComment on above:Performed By: #### CP, CDP #### [facility] [address] [place] [address] Embedded Case Manager: Jennifer Freire MDBUN/CRE Frmdh1Uzsxam5-59WzcifSumma Health Barberton Campus Comment on above:Performed By: #### CP, CDP #### [facility] [address] [place] [address] Embedded Case Manager: JAMESON Davisalcium [Mass/Vol]9.9 mg/dLNormal8.6-10.4Sum[facility] Barberton CampusComment on above:Performed By: #### CP, CDP #### [facility] [address] [place] [address] Embedded Case Manager: JAMESON Davishloride [Moles/Vol]106 mmol/TEdhmab40-374IsxruSumma Health Barberton CampusComment on above:Performed By: #### CP, CDP #### [facility] [address] [place] [address] Embedded Case Manager: Jennifer Freire MDCO2 [Moles/Vol]22 mmol/ACzxqia12-53TtcdvSumma Health Barberton CampusComment on above:Performed By: #### CP, CDP #### [facility] [address] [place] [address] Embedded Case Manager: JAMESON Davisreatinine [Mass/Vol]0.8 mg/dLNormal0.5-0.9Sum[facility] Barberton CampusComment on above:Performed By: #### CP, CDP #### [facility] [address] [place] [address] Embedded Case Manager: Jennifer Freire MDGFR/1.73 sq M.predicted among non-blacks MDRD (S/P/Bld) [Vol rate/Area]mL/min/{1.73_m2}Normal>60Sum[facility] Barberton CampusComment on above:Result Comment: These results are not intended for [...] or following therapy that affects renal tubular secretion.Performed By: #### CP, CDP #### [facility] [address] [place] [address] Embedded Case Manager: Jennifer Freire MDGlucose [Mass/Vol]93 mg/uBEdgsik32-50HoepkOhioHealth Southeastern Medical CenterComment on above:Performed By: #### CP, CDP #### [facility] [address] [place] [address] Embedded Case Manager: MIGUEL ÁNGEL Davisotassium [Moles/Vol]3.7 mmol/LNormal3.7-5.3Mselect medical specialty hospital - cantony Tippah County HospitalComment on above:Performed By: #### CP, CDP #### [facility] [address] [place] [address] Embedded Case Manager: Jennifer Freire MDProtein [Mass/Vol]8.3 g/dLNormal6.4-8.3Mselect medical specialty hospital - [place] [facility]ah County HospitalComment on above:Performed By: #### CP, CDP #### [facility] [address] [place] [id number] Embedded Case Manager: Jennifer Sturtz, MDSodium [Moles/Vol]142 mmol/VWsjxcc658-406RzaimSumma Health Barberton CampusComment on above:Performed By: #### CP, CDP #### [facility] [address] [place] [address] Embedded Case Manager: Jennifer Freire MDUrea nitrogen [Mass/Vol]7 mg/dLNormal6-20[facility] CampusComment on above:Performed By: #### CP, CDP #### [facility] [address] [place] [address] Embedded Case Manager: BRIE Davisurgical Pathologyon 11-34-5506Fjfbvimu Pathology NormalMetroHealth Parma Medical CenterComment on above:Result Comment: [facility] [address] [place] [address] Surgical Pathology Consultation Patient Name:ANTONIA NOYOLA:1985 (Age: 39)Gender:FTaken:04/06/2024eported:04/17/2024hysician(s):Adiel Aparicio M.D. ([phone])Copy To: Rec. #:[id number]: #[id number] Final Pathologic Diagnosis Uterus, cervix, bilateral fallopian tubes, and bilateral ovaries, TAHBSO: Cervix, negative for dysplasia Inactive endometrium with benign endometrial polyp Bilateral ovaries with endometriosis/endometrioma Unremarkable fallopian tubes Report Electronically Signed Out justenk/04/17/2024Evelin Joshi MD Interpretation performed at [facility], [address] [place] [address], License number: [id number]. Clinical History Endometriosis/ pelvic pain. Gross Description [...] is a 0.3 cm white-ferguson, whirled nodule locatedon the posterior wall. The right fimbriated fallopian tube is 6.5 cm in length x 0.7 cm in diameter. The serosa is estevez-purple, smooth and glistening and sectioning reveals a pinpoint lumen. The right intact ovary is 3 x 2.7 x 1.8 cm. The cortical surface is variegated purple-estevez, partially cerebriform and predominantlycystic. Sectioning reveals a 1.7 cm midline cyst [...] entirely filled with red-brown, hemorrhagic turbid fluid Prosthetic Dentist sections are submitted in cassettes A-L, as: A anterior cervix B posterior cervix C anterior uterine wall D anterior endomyometrium E posterior uterine wall with whirled nodule F posterior endomyometrium G right fallopian tube with entire fimbriated end H-I right ovary J left fallopian tube with entire fimbriated end K-L left ovary (12, ss, [id number], m6) MW mxw/04/06/2024WAK Specimen(s) Received Uterus, cervix, bilateral fallopian tubes, and bilateral ovaries Fee Codes(s): 1; 13196HVG AND AUTO DIFFon 29-58-8297FEWSBMCE BASOPHIL0.1 X10E9/LNormal0.0-0.[address] Rita's Medical CenterComment on above:Performed By: #### 6-3 #### [facility] ([id number]) [address] [place] [address] 85413YTALGKOF NEUTROPHIL4.5 X10E9/LNormal1.5-6.6Mer[facility] St. Rita's Medical CenterComment on above:Performed By: #### 6-3 #### [facility] ([id number]) [address] [place] [address] 70797Lhtngtwey/100 WBC (Bld)1.1 %[facility] Comment on above:Performed By: #### 6-3 #### [facility] ([id number]) [address] [place] [address] 64494Udxourcxcub (Bld) [#/Vol]0.0 10*3/uLNormal0.0-0.4[facility] Rita's Medical CenterComment on above:Performed By: #### 6-3 #### [facility] ([id number]) [address] [place] [address] 79785Wrhsahydtqx/100 WBC (Bld)0.5 %[facility] Comment on above:Performed By: #### 6-3 #### [facility] ([id number]) [address] [place] [address] 22719Knuvlxifdnr distribution width (RBC) [Ratio]18.3 %High11.5-15.[address] Rita's Medical CenterComment on above:Performed By: #### 6-3 #### [facility] ([id number]) [address] [place] [address] 74183Hzftwoyyak (Bld) [Volume fraction]32.1 %Rfm60-86SpbHebkshMercy Health St. Rita's Medical CenterComment on above:Performed By: #### 6-3 #### [facility] ([id number]) [address] [place] [address] 25788Fdqenzgmzw (Bld) [Mass/Vol]10.2 g/dLLow11.7-15.5PFostoria City HospitalComment on above:Performed By: #### 6-3 #### [facility] ([id number]) [address] [place] [address] 95036Zwkecmxgxjs (Bld) [#/Vol]2.5 10*3/uLNormal1.0-3.5PFostoria City HospitalComment on above:Performed By: #### 6-3 #### [facility] ([id number]) [address] [place] [address] 21641Nxgcfbzvnjh/100 WBC (Bld)33.1 %NormalMercy Health St. Rita's Medical Center Comment on above:Performed By: #### 6-3 #### [facility] ([id number]) [address] [place] [address] 17352TTR (RBC) [Entitic mass]22.6 irScw34-56CrvFdteztMercy Health St. Rita's Medical CenterComment on above:Performed By: #### 6-3 #### [facility] ([id number]) [address] [place] [address] 27144GIVB (RBC) [Mass/Vol]31.7 g/wAQfx84-81UkqJkbvazMercy Health St. Rita's Medical CenterComment on above:Performed By: #### 6-3 #### [facility] ([id number]) [address] [place] [address] 11633ZHN (RBC) [Entitic vol]71 qDRlp63-323JknHihesjMercy Health St. Rita's Medical Center Comment on above:Performed By: #### 6-3 #### [facility] ([id number]) [address] [place] [address] 59821Pyaxkmpwu (Bld) [#/Vol]0.5 10*3/uLNormal0-0.9[facility] Rita's Medical CenterComment on above:Performed By: #### 2106-3 #### [facility] ([id number]) [address] [place] [address] 09896Fadnctxqd/100 WBC (Bld)6.2 %NormalMercy Health St. Rita's Medical Center Comment on above:Performed By: #### 6-3 #### [facility] ([id number]) [address] [place] [address] 73713Aqanadsyrne/100 WBC (Bld)59.1 %[facility] Comment on above:Performed By: #### 6-3 #### [facility] ([id number]) [address] [place] [address] 39611Bnwamieu mean volume (Bld) [Entitic vol]7.6 fLNormal7-12 ACMC Healthcare SystemedicTahoe Forest HospitalComment on above:Performed By: #### 6-3 #### [facility] ([id number]) [address] [place] [address] 08246Zhgmvzcfa (Bld) [#/Vol]582 10*3/lSWezp114-833WuvMwkttbGraham Regional Medical CenterComment on above:Performed By: #### 6-3 #### [facility] ([id number]) [address] [place] [address], [place] [address]OYS COUNT4.51 X10E12/LNormal3.80-5.20[facility] Comment on above:Performed By: #### 6-3 #### [facility] ([id number]) [address] [place] [address] 85999CEO (Bld) [#/Vol]7.7 10*3/uLNormal4.0-11.0ProGraham Regional Medical CenterComment on above:Performed By: #### 6-3 #### [facility] ([id number]) [address] [place] [address] 44343HTBILRHTUEAPA METABOLIC PANELon 97-57-9705Daihmxg [Mass/Vol]4.3 g/dLNormal3.2-5.3PFostoria City HospitalComment on above:Performed By: #### 6-3 #### [facility] ([id number]) [address] [place] [address], [place] [address]JKE [Catalytic activity/Vol]65 U/HLsafvo76-000WouIpnemxGraham Regional Medical CenterComment on above:Performed By: #### 6-3 #### [facility] ([id number]) [address] [place] [address] 63729CKT [Catalytic activity/Vol]20 U/LNormal0-31PFostoria City HospitalComment on above:Performed By: #### 6-3 #### [facility] ([id number]) [address] [place] [address], [place] [address]Itiws gap [Moles/Vol]8 mmol/LNormal5-15ProGraham Regional Medical CenterComment on above:Performed By: #### 6-3 #### [facility] ([id number]) [address] [place] [address] 66233XOD [Catalytic activity/Vol]24 U/LNormal0-41ProGraham Regional Medical CenterComment on above:Performed By: #### 6-3 #### [facility] ([id number]) [address] [place] [address], [place] [address]Jsnjhsjdp [Mass/Vol]0.8 mg/dLNormal0.3-1.2PFostoria City HospitalComment on above:Performed By: #### 6-3 #### [facility] ([id number]) [address] [place] [address], [place] [address]Zlmfhcp [Mass/Vol]8.9 mg/dLNormal8.5-10.5PFostoria City HospitalComment on above:Performed By: #### 2106-3 #### [facility] ([id number]) [address] [place] [address], [place] [address]Lgaitvgv [Moles/Vol]104 mmol/YBeszaw96-069BavZzyjnhGraham Regional Medical CenterComment on above:Performed By: #### 6-3 #### [facility] ([id number]) [address] [place] [address], [place] [address]QY7 [Moles/Vol]22 mmol/KImfnxb08-18CztFbpaurFostoria City Hospital Comment on above:Performed By: #### 6-3 #### [facility] ([id number]) [address] [place] [address], [place] [address]Vyihilnyft [Mass/Vol]0.62 mg/dLNormal0.40-1.00[facility] St. Rita's Medical CenterComment on above:Result Comment: METHOD TRACEABLE TO IDMS STANDARD Performed By: #### 2106-3 #### [facility] ([id number]) [address] [place] [address] 94304pBVX (CKD-EPI) NON-RACE DEPENDENT>90Normal>59ProGraham Regional Medical CenterComment on above:Result Comment: Reported eGFR is based on the CKD-EPI 2021 equation that does not use a race coefficient.Performed By: #### 2106-3 #### [facility] ([id number]) [address] [place] [address], [place] [address]Fjnkzne [Mass/Vol]107 mg/zDCgci44-15GoqItozrvMercy Health St. Rita's Medical Center Comment on above:Performed By: #### 2106-3 #### [facility] ([id number]) [address] [place] [address] 64063Zdtdnpjhf [Moles/Vol]3.7 mmol/LNormal3.5-5.0[facility]. Rita's Medical CenterComment on above:Performed By: #### 2106-3 #### [facility] ([id number]) [address] [place] [address] 79456Sxtjcek [Mass/Vol]8.0 g/dLNormal6.0-8.0ProGraham Regional Medical CenterComment on above:Performed By: #### 2106-3 #### [facility] ([id number]) [address] [place] [address] 70072Rfzbhu [Moles/Vol]134 mmol/OIlkliz864-964NxkQerrnx Fremont HospitalComment on above:Performed By: #### 2106-3 #### [facility] ([id number]) [address] [place] [address] 87785Ldrc nitrogen [Mass/Vol]8 mg/dLNormal5-23ProGraham Regional Medical CenterComment on above:Performed By: #### 2106-3 #### [facility] ([id number]) [address] [place] [address] 99808ND ABDOMEN AND PELVIS WO CONTon 56-63-1793IS ABDOMEN AND PELVIS WO CONTCT ABDOMEN AND PELVIS WO CONT CLINICAL INFORMATION: [...] by Veto Atwood MD on 04/05/2024 3:57 PMNormalProMedica New Cuyama HospitalHCG ( test) Ql (U)on 11-30-3662Fmxg HCG ( test) Ql (U) NegativeNormalNEGMercy Health St. Rita's Medical CenterComment on above:Performed By: #### MALINI, STEVE, 3040-3, 48178-6, 1985-10, #### [facility] ([id number]) [address] [place] [address] 10616BYJYYZsx 09-98-3253Wpbmlp [Catalytic activity/Vol]30 U/LNormal 17-40ProGraham Regional Medical CenterComment on above:Performed By: #### 6-3 #### [facility] ([id number]) [address] [place] [address] 53524Deyyfwh (P arely) [Moles/Vol]on 14-85-1382IEPNKGR W/REFLEX1.7 mmol/LNormal0.4-2.0Mer[facility] St. Rita's Medical CenterComment on above:Result Comment: Result did not trigger repeat Lactate, re-order if needed.Performed By: #### MALINI [facility], 3040-3, 69437-2, 1985-10, #### [facility] ([id number]) [address] [place] [address] 92876IMF MACROSCOPIC NURon 99-39-1268WODIUPYZT NURNegativeNormalNEG ProMMercy HospitalComment on above:Performed By: #### 6-3 #### [facility] ([id number]) [address] [place] [address] 64980WOHTU/HGB NURNegativeNormalNEGMercy Health St. Rita's Medical CenterComment on above:Performed By: #### 6-3 #### [facility] ([id number]) [address] [place] [address] 49552LRGGJOU NURNegativeNormalNEGMercy Health St. Rita's Medical CenterComment on above:Performed By: #### 6-3 #### [facility] ([id number]) [address] [place] [address] 97608YNBMHGC NURNegativeNormalNEGProGraham Regional Medical CenterComment on above:Performed By: #### 6-3 #### [facility] ([id number]) [address] [place] [address] [place] [address]UFMGQSNNV ESTERASE NURNegativeNormalNEGMercy Health St. Rita's Medical CenterComment on above:Performed By: #### 6-3 #### [facility] ([id number]) [address] [place] [address] 23311WHNRSEO NURNegativeNormalNEGMercy Health St. Rita's Medical CenterComment on above:Performed By: #### 6-3 #### [facility] ([id number]) [address] [place] [address] 77624GP NUR7.5Vsjipd8.0-8.5PFostoria City HospitalComment on above:Performed By: #### 6-3 #### [facility] ([id number]) [address] [place] [address] 47585WFNYINX NURNegativeNormalNEGMercy Health St. Rita's Medical CenterComment on above:Performed By: #### 6-3 #### [facility] ([id number]) [address] [place] [address] 33699OYFEVUYN GRAVITY NUR1.805Trkqlb1.003-1.035ProGraham Regional Medical CenterComment on above:Performed By: #### 6-3 #### [facility] ([id number]) [address] [place] [address] 50771SYCUJCBSJPTV NUR0.2 eu/dLNormal<1.1PFostoria City Hospital Comment on above:Performed By: #### 6-3 #### [facility] ([id number]) [address] [place] [address] 21834AU PELVIC WITH TRANSVAGINAL AND DUPLEXon 61-45-7591TL PELVIC WITH TRANSVAGINAL AND DUPLEXUS PELVIC WITH TRANSVAGINAL AND DUPLEX CLINICAL INFORMATION: [...] venous outflow structures of the ovaries with arterialand venous spectral waveforms obtained and reviewed in view of the clinical history of Evaluate forOvarian Torsion . Duplex spectral Doppler document arterial and venous spectral waveforms documented within the majorarterial inflow and venous outflow of both ovaries. Arterial and venous Doppler duplex spectral waveforms were evaluated. COMPARISON: 01/27/24. FINDINGS: The uterus measures 7.6 x 5.1 x 3.9 cm. Endometrial thickness is 11 mm. Normal cervix. The right ovary measures 2.9 x 3.0 x 3.0 cm. The left ovary measures 3.7 x 3.1 x 1.5 cm. Ovarian follicles notedbilaterally. Resolution left ovarian hemorrhagic cyst. No free fluid. The arterial and venous waveforms are within normal limits. IMPRESSION: * No acute findings. Finalized by Sarah Martinez MD on 04/05/2024 3:03 PMNormalProMedica Naval Hospital Lemoore AND AUTO DIFFon 19-81-2052QWONKOGE BASOPHIL0.1 X10E9/LNormal0.0-0.2 ProMHolzer Health SystemComment on above:Performed By: #### CBCA, CMP #### [facility] ([id number]) [address], [address] [place], [place] [address]KWHNEDYB NEUTROPHIL2.4 X10E9/LNormal1.5-6.6ProPremier Health Miami Valley Hospital NorthComment on above:Performed By: #### CBCA, CMP #### [facility] ([id number]) [address], [address] [place], [place] [address]Cbwdbceee/100 WBC (Bld)1.1 %NormalMetroHealth Parma Medical Center Comment on above:Performed By: #### CBCA, CMP #### [facility] ([id number]) [address], [address] [place], [place] [address]Mqhaavxdlgw (Bld) [#/Vol]0.1 10*3/uLNormal0.0-0.4ProOhiohealth Van Wert Hospitalca Prescott HospitalComment on above:Performed By: #### CBCA, CMP #### [facility] ([id number]) [address], [address] [place], [place] [address]Cocbdaowkhv/100 WBC (Bld)2.7 %NormalMetroHealth Parma Medical Center Comment on above:Performed By: #### CBCA, CMP #### [facility] ([id number]) [address], [address] [place], [place] [address]Puwwivbzyoa distribution width (RBC) [Ratio]18.7 %High11.5-15.0 ProMedica Prescott HospitalComment on above:Performed By: #### CBCA, CMP #### [facility] ([id number]) [address], [address] [place], [place] [address]Femgkyxahc (Bld) [Volume fraction]31.3 %Pwn29-00BpzHvluin Toledo HospitalComment on above:Performed By: #### CBCA, CMP #### [facility] ([id number]) [address], [address] [place], [place] [address]Yhellecnfn (Bld) [Mass/Vol]9.9 g/dLLow11.7-15.5PTrinity Health System East Campus HospitalComment on above:Performed By: #### CBCA, CMP #### [facility] ([id number]) [address], [address] [place], [place] [address]Ttrphyqxxjm (Bld) [#/Vol]2.2 10*3/uLNormal1.0-3.5ProMedica Prescott HospitalComment on above:Performed By: #### CBCA, CMP #### [facility] ([id number]) [address], [address] [place], [place] [address]Xeaqisjeiag/100 WBC (Bld)42.4 %NormalMetroHealth Parma Medical Center Comment on above:Performed By: #### CBCA, CMP #### [facility] ([id number]) [address], [address] [place], [place] [address]ZFS (RBC) [Entitic mass]23.2 uoDff85-88AwyYublobMetroHealth Parma Medical Center Comment on above:Performed By: #### CBCA, CMP #### [facility] ([id number]) [address], [address] [place], [place] [address]OMRC (RBC) [Mass/Vol]31.7 g/oSZyk17-36GsdKipuflMetroHealth Parma Medical Center Comment on above:Performed By: #### CBCA, CMP #### [facility] ([id number]) [address], [address] [place], [place] [address]ZRJ (RBC) [Entitic vol]73 fCMry73-729LjrNyokowMetroHealth Parma Medical Center Comment on above:Performed By: #### CBCA, CMP #### [facility] ([id number]) [address], [address] [place], [place] [address]Bgszzbvzk (Bld) [#/Vol]0.4 10*3/uLNormal0-0.9MetroHealth Parma Medical CenterComment on above:Performed By: #### CBCA, CMP #### [facility] ([id number]) [address], [address] [place], [place] [address]Jawkijurj/100 WBC (Bld)7.9 %NormalMetroHealth Parma Medical Center Comment on above:Performed By: #### CBCA, CMP #### [facility] ([id number]) [address], [address] [place], [place] [address]Chirvxumoqn/100 WBC (Bld)45.9 %NormalMetroHealth Parma Medical Center Comment on above:Performed By: #### CBCA, CMP #### [facility] ([id number]) [address], [address] [place], [place] [address]Teuwabfi mean volume (Bld) [Entitic vol]8.0 fLNormal7-12 ProMedica Prescott HospitalComment on above:Performed By: #### CBCA, CMP #### [facility] ([id number]) [address], [address] [place], [place] [address]Gpguhiayt (Bld) [#/Vol]457 10*3/zKRfak756-411EtnXdtnir [place]edo HospitalComment on above:Performed By: #### CBCA, CMP #### [facility] ([id number]) [address], [facility] [address] [place], [place] [address]MCD COUNT4.28 X10E12/LNormal3.80-5.20[facility] Comment on above:Performed By: #### CBCA, CMP #### [facility] ([id number]) [address], [address] [place] [address]KSR (Bld) [#/Vol]5.2 10*3/uLNormal4.0-11.0ProPremier Health Miami [facility] Hospital NorthComment on above:Performed By: #### CBCA, CMP #### [facility] ([id number]) [address], [address] [place], [place] [address]SYDKQCCXPIZUG METABOLIC PANELon 86-16-5413Hdvvfif [Mass/Vol]4.0 g/dLNormal3.2-5.3ProMedAshtabula County Medical Center HospitalComment on above:Performed By: #### CBCA, CMP #### [facility] ([id number]) [address], [address] [place], [place] [address]BJT [Catalytic activity/Vol]61 U/AZuqiss29-657JnsUsozxy [place] HospitalComment on above:Performed By: #### CBCA, CMP #### [facility] ([id number]) [address], [address] [place], [place] [address]QUI [Catalytic activity/Vol]12 U/LNormal0-31[facility] [place] HospitalComment on above:Performed By: #### CBCA, CMP #### [facility] ([id number]) [address], [address] [place], [place] [address]Zedpf gap [Moles/Vol]10 mmol/LNormal5-15[facility] [place] HospitalComment on above:Performed By: #### CBCA, CMP #### [facility] ([id number]) [address], [address] [place], [place] [address]FAG [Catalytic activity/Vol]14 U/LNormal0-41[facility] [place] HospitalComment on above:Performed By: #### CBCA, CMP #### [facility] ([id number]) [address], [address] [place], [place] [address]Emohaicvr [Mass/Vol]0.3 mg/dLNormal0.3-1.2[facility] [place] HospitalComment on above:Performed By: #### CBCA, CMP #### [facility] ([id number]) [address], [address] [place], [place] [address]Sssffnl [Mass/Vol]9.0 mg/dLNormal8.5-10.5Pro[facility] [place] HospitalComment on above:Performed By: #### CBCA, CMP #### [facility] ([id number]) [address], [address] [place], [place] [address]Glhcaocd [Moles/Vol]107 mmol/QCjxfzi75-359MewXbjcdu [place] HospitalComment on above:Performed By: #### CBCA, CMP #### [facility] ([id number]) [address], [address] [place], [place] [address]AJ3 [Moles/Vol]24 mmol/VHgnfso88-55BgoTwwzdlMount [facility] Comment on above:Performed By: #### MALINI, CMP #### [facility] ([id number]) [address] [address] [place], [place] [address]Gnfacbhadl [Mass/Vol]0.72 mg/dLNormal0.40-1.00MetroHealth Parma Medical CenterComment on above:Result Comment: METHOD TRACEABLE TO IDMS STANDARD Performed By: #### MALINI, CMP #### [facility] ([id number]) [address] [address] [place], [place] [address]uOWI (CKD-EPI) NON-RACE DEPENDENT>90Normal>59ProPremier Health Miami Valley Hospital NorthComment on above:Result Comment: Reported eGFR is based on the CKD-EPI 2020 equation that does not use a race coefficient.Performed By: #### MALINI, CMP #### [facility] ([id number]) [address] [address] [place], [place] [address]Sgwzjqe [Mass/Vol]101 mg/lVQiov12-41GozSnimhpMetroHealth Parma Medical Center Comment on above:Performed By: #### MALINI, CMP #### [facility] ([id number]) [address] [address] [place], [place] [address]Ufkbzqqyz [Moles/Vol]3.9 mmol/LNormal3.5-5.0Met[facility] Parma Medical CenterComment on above:Performed By: #### MALINI, CMP #### [facility] ([id number]) [address] [address] [place], [place] [address]Wjofjzl [Mass/Vol]6.9 g/dLNormal6.0-8.0[facility] Comment on above:Performed By: #### CBCChi, CMP #### [facility] ([id number]) [address] [address] [place], [place] [address]Kjmjkq [Moles/Vol]141 mmol/GUurbia454-409RksGdntsn Toledo HospitalComment on above:Performed By: #### CBCA, CMP #### [facility] ([id number]) [address], [address] [place], [place] [address]Qkxl nitrogen [Mass/Vol]10 mg/dLNormal5-23ProCleveland Clinic HospitalComment on above:Performed By: #### CBCA, CMP #### [facility] ([id number]) [address], [address] [place], [place] [address]UZH AND AUTO DIFFon [id number] BASOPHIL0.1 X10E9/LNormal 0.0-0.2PFostoria City HospitalComment on above:Performed By: #### 6-3 #### [facility] ([id number]) [address] [place] [address]FFHMDNEF NEUTROPHIL3.0 X10E9/LNormal1.5-6.6ProGraham Regional Medical CenterComment on above:Performed By: #### 6-3 #### [facility] ([id number]) [address] [place] [address]Kigohxvav/100 WBC (Bld)1.1 %[facility] Comment on above:Performed By: #### 6-3 #### [facility] ([id number]) [address] [place] [address]Dpxbmasdnph (Bld) [#/Vol]0.1 10*3/uLNormal0.0-0.4[facility]. Rita's Medical CenterComment on above:Performed By: #### 6-3 #### [facility] ([id number]) [address] [place] [address]Nllcomwciam/100 WBC (Bld)1.0 %[facility] Comment on above:Performed By: #### 2106-3 #### [facility] ([id number]) [address] [place] [address]Jszaeccvogd distribution width (RBC) [Ratio]17.6 %High11.5-15.0 ProMMercy HospitalComment on above:Performed By: #### 6-3 #### [facility] ([id number]) [address] [place] [address]00Bsbvafpawf (Bld) [Volume fraction]34.1 %Bcr50-80RtiQylnzcGraham Regional Medical CenterComment on above:Performed By: #### 6-3 #### [facility] ([id number]) [address] [place] [address]Ulbozlsaiq (Bld) [Mass/Vol]10.9 g/dLLow11.7-15.5PFostoria City HospitalComment on above:Performed By: #### 6-3 #### [facility] ([id number]) [address] [place] [address] 27[address]Ievfksfauav (Bld) [#/Vol]2.0 10*3/uLNormal1.0-3.5PFostoria City HospitalComment on above:Performed By: #### 6-3 #### [facility] ([id number]) [address] [place] [address] 058[address]Vwchgawcbsl/100 WBC (Bld)36.4 %NormalMercy Health St. Rita's Medical Center Comment on above:Performed By: #### 6-3 #### [facility] ([id number]) [address] [place] [address] 11754HHU (RBC) [Entitic mass]22.7 vgMnd73-95PikGdovvkGraham Regional Medical CenterComment on above:Performed By: #### 6-3 #### [facility] ([id number]) [address] [place] [address]17[address]ROYN (RBC) [Mass/Vol]31.8 g/sXDjp18-03GfyGwebkzMercy Health St. Rita's Medical CenterComment on above:Performed By: #### 6-3 #### [facility] ([id number]) [address] [place] [address] 41741RQZ (RBC) [Entitic vol]71 tTZyp96-714RujZrmcfcMercy Health St. Rita's Medical Center Comment on above:Performed By: #### 6-3 #### [facility] ([id number]) [address] [place] [address] 15527Fsvrnwidi (Bld) [#/Vol]0.4 10*3/uLNormal0-0.9Mer[facility] Health St. Rita's Medical CenterComment on above:Performed By: #### 6-3 #### [facility] ([id number]) [address] [place] [address] 48[address]Igyustysy/100 WBC (Bld)6.9 %NormalMercy Health St. Rita's Medical Center Comment on above:Performed By: #### 6-3 #### [facility] ([id number]) [address] [place] [address]Vovfgtimtbk/100 WBC (Bld)54.6 %[facility] Comment on above:Performed By: #### 6-3 #### [facility] ([id number]) [address] [place] [address] 09381Stkyrasv mean volume (Bld) [Entitic vol]7.7 fLNormal7-[address] Rita's Medical CenterComment on above:Performed By: #### 6-3 #### [facility] ([id number]) [address] [place] [address] 445[address]Dwrwuvaph (Bld) [#/Vol]514 10*3/pSWnkl998-625ZqhAkugulGraham Regional Medical CenterComment on above:Performed By: #### 6-3 #### [facility] ([id number]) [address] [place] [address] 79993NOW COUNT4.78 X10E12/LNormal3.80-5.20[facility] Comment on above:Performed By: #### 6-3 #### [facility] ([id number]) [address] [place] [address] 04[address]FAN (Bld) [#/Vol]5.5 10*3/uLNormal4.0-11.0ProGraham Regional Medical CenterComment on above:Performed By: #### 6-3 #### [facility] ([id number]) [address] [place] [address]ANRBPQGNWKOGX METABOLIC PANELon 89-96-2387Tfifqhj [Mass/Vol]4.5 g/dLNormal3.2-5.3PFostoria City HospitalComment on above:Performed By: #### 6-3 #### [facility] ([id number]) [address] [place] [address], [place] [address]AQL [Catalytic activity/Vol]64 U/ZBygodw05-683TjvIjnkcsGraham Regional Medical CenterComment on above:Performed By: #### 2106-3 #### [facility] ([id number]) [address] [place] [address] 40340XWD [Catalytic activity/Vol]18 U/LNormal0-31PFostoria City HospitalComment on above:Performed By: #### 6-3 #### [facility] ([id number]) [address] [place] [address]59[address]Kbvib gap [Moles/Vol]8 mmol/LNormal5-15ProGraham Regional Medical CenterComment on above:Performed By: #### 2106-3 #### [facility] ([id number]) [address] [place] [address] 749[address]SOQ [Catalytic activity/Vol]19 U/LNormal0-41Mer[facility] Health St. Rita's Medical CenterComment on above:Performed By: #### 2106-3 #### [facility] ([id number]) [address] [place] [address] 997[address]Eunyxzixa [Mass/Vol]0.7 mg/dLNormal0.3-1.2PFostoria City HospitalComment on above:Performed By: #### 6-3 #### [facility] ([id number]) [address] [place] [address]60[address]Zksaenh [Mass/Vol]9.4 mg/dLNormal8.5-10.5PFostoria City HospitalComment on above:Performed By: #### 6-3 #### [facility] ([id number]) [address] [place] [address] 25[address]Tvfikbtf [Moles/Vol]105 mmol/QHtmyph13-488ZcnUqwvzpGraham Regional Medical CenterComment on above:Performed By: #### 6-3 #### [facility] ([id number]) [address] [place] [address] 628[address]NM2 [Moles/Vol]21 mmol/XRgx85-35OsgCboeqmFostoria City Hospital Comment on above:Performed By: #### 6-3 #### [facility] ([id number]) [address] [place] [address]Devazuowgy [Mass/Vol]0.68 mg/dLNormal0.40-1.00ProGraham Regional Medical CenterComment on above:Result Comment: METHOD TRACEABLE TO IDMS STANDARD Performed By: #### 2106-3 #### [facility] ([id number]) [address] [place] [address] 63382pSKF (CKD-EPI) NON-RACE DEPENDENT>90Normal>59ProGraham Regional Medical CenterComment on above:Result Comment: Reported eGFR is based on the CKD-EPI 2020 equation that does not use a race coefficient.Performed By: #### 2106-3 #### [facility] ([id number]) [address] [place] [address], [place] [address]Cagjeir [Mass/Vol]107 mg/qBQhuc47-58LxaUifdroMercy Health St. Rita's Medical Center Comment on above:Performed By: #### 6-3 #### [facility] ([id number]) [address] [place] [address], [place] [address]Mxpwpwwgn [Moles/Vol]3.8 mmol/LNormal3.5-5.0Mer[facility] St. Rita's Medical CenterComment on above:Performed By: #### 6-3 #### [facility] ([id number]) [address] [place] [address], [place] [address]Aqskfqx [Mass/Vol]8.6 g/dLHigh6.0-8.0[facility] Comment on above:Performed By: #### 6-3 #### [facility] ([id number]) [address] [place] [address], [place] [address]Ebeaah [Moles/Vol]134 mmol/YObxsne571-849HkvEwxfll Fremont HospitalComment on above:Performed By: #### 6-3 #### [facility] ([id number]) [address] [place] [address], [place] [address]Mfqg nitrogen [Mass/Vol]10 mg/dLNormal5-23ProGraham Regional Medical CenterComment on above:Performed By: #### 6-3 #### [facility] ([id number]) [address] [place] [address], [place] [address]TSP ( test) Ql (U)on 85-13-0636Verk HCG ( test) Ql (U)NegativeNormalNEGProGraham Regional Medical CenterComment on above: Performed By: #### 6-3 #### [facility] ([id number]) [address] [place] [address], [place] [address]DJS MACROSCOPIC NURon 04-83-1361JVQRBLQNX NURNegativeNormalNEG [facility] Vacavalley HospitalComment on above:Performed By: #### 2106-3 #### [facility] ([id number]) [address] [place] [address] [place] [address]MBHZF/HGB NURTraceAbnormalNEGProGraham Regional Medical CenterComment on above:Performed By: #### 6-3 #### [facility] ([id number]) [address] [place] [address] [place] [address]XTNSVOV NURNegativeNormalNEGProGraham Regional Medical CenterComment on above:Performed By: #### 6-3 #### [facility] ([id number]) [address] [place] [address] 412[address]HQEKOLW NURNegativeNormalNEGProGraham Regional Medical CenterComment on above:Performed By: #### 6-3 #### [facility] ([id number]) [address] [place] [address], [place] [address]ZCMNNOIPH ESTERASE NURNegativeNormalNEGProGraham Regional Medical CenterComment on above:Performed By: #### 2106-3 #### [facility] ([id number]) [address] [place] [address], [place] [address]NFQQYCM NURNegativeNormalNEGProGraham Regional Medical CenterComment on above:Performed By: #### 2106-3 #### [facility] ([id number]) [address] [place] [address], [place] [address]PI NUR6.8Lyjhbu4.0-8.5Pro[facility] Vacavalley HospitalComment on above:Performed By: #### 2106-3 #### [facility] ([id number]) [address] [place] [address] [place] [address]UJBTNGK NURNegativeNormalNEGProGraham Regional Medical CenterComment on above:Performed By: #### 2106-3 #### [facility] ([id number]) [address] [place] [address]MTYKYWDV GRAVITY NUR1.477Wbdjot2.003-1.035ProGraham Regional Medical CenterComment on above:Performed By: #### 2106-3 #### [facility] ([id number]) [address] [place] [address] 86[address]KGXTDJRDJZBM NUR0.2 eu/dLNormal<1.1PFostoria City Hospital Comment on above:Performed By: #### 2106-3 #### [facility] ([id number]) [address] [place] [address]SUXab 83-66-7933LJNZOMLO BAS0.1 10*3/uLNormal0.0-0.2AVia Christi HospitalABSOLUTE EOS0.2 10*3/uLNormal0.0-0.7[facility] ABSOLUTE NEUTROPHIL COUNT3.2 10*3/uLNormal1.4-6.5[facility] Basophils/100 WBC (Bld)0.7 %Normal0.0-2.0[facility] Medical CenterDTYPEAUTO DIFF NormalAviMount Sinai Health SystemEosinophils/100 WBC (Bld)2.3 %Normal0.0-11.0[facility] Medical CenterLymphocytes (Bld) [#/Vol]3.5 10*3/uLHigh1.2-3.4AVia Christi HospitalLymphocytes/100 WBC (Bld)47.1 %Ryftpw95.0-55.0[facility] Monocytes (Bld) [#/Vol]0.5 10*3/uLNormal0.0-0.7[facility] Monocytes/100 WBC (Bld)7.4 %Normal0.0-10.0[facility] Medical CenterNeutrophils/100 WBC (Bld)42.5 %Afeyrh34.0-75.0[facility]unction HospitalErythrocyte distribution width (RBC) [Ratio]17.1 %High11.5-14.5AviMount Sinai Health SystemHematocrit (Bld) [Volume fraction]33.6 %Low36.0-48.0[facility] Medical CenterHemoglobin (Bld) [Mass/Vol]10.3 g/dLLow12.0-16.0[facility] (RBC) [Entitic mass] 22.7 pgLow26.0-35.0[facility] HospitalHC (RBC) [Mass/Vol]30.8 g/dLNormal 27.0-37.0[facility] Methodist HospitalV (RBC) [Entitic vol]73.5 fLLow80.0-100.0[facility]htabula General Hospitallet mean volume (Bld) [Entitic vol]7.9 fLNormal7.4-11.0 [facility] Medical CenterPlatelets (Bld) [#/Vol]466 10*3/oXJhtx432-292IonoeSumner Regional Medical CenterRBC (Bld) [#/Vol]4.57 10*6/uLNormal4.0-5.4AVia Christi HospitalWBC (Bld) [#/Vol]7.4 10*3/uLNormal3.6-11.0[facility], EDIF, PLATELET on 43-34-6925JIGDPGPT BASOPHIL COUNT0.1 10*3/uL0.0 - 0.2 10*3/uLUniversity Hospitals Beachwood Medical CenterBasophils/100 WBC (Bld)0.7 %0.0 - 2.0 %[facility] Medical CenterDifferential cell count method Nom (Bld)AUTO DIFF%[facility] Medical CenterEosinophils (Bld) [#/Vol]0.2 10*3/uL0.0 - 0.7 10*3/uLUniversity Hospitals Beachwood Medical CenterEosinophils/100 WBC (Bld) 2.3 %0.0 - 11.0 %[facility] Medical CenterErythrocyte distribution width (RBC) [Ratio] 17.1 %High11.5 - 14.5 %[facility]ita Health SystemHematocrit (Bld) [Volume fraction]33.6 %Low36.0 - 48.0 %[facility] Medical CenterHemoglobin (Bld) [Mass/Vol]10.3 g/dLMercy Health Defiance HospitalInterpretation and review of laboratory resultsAbnormalASumma Health Akron CampusLymphocytes (Bld) [#/Vol]3.5 10*3/uLHigh1.2 - 3.4 10*3/[facility] CenterLymphocytes/100 WBC (Bld)47.1 %20.0 - 55.0 %[facility] Medical CenterMCH (RBC) [Entitic mass]22.7 pgLow26.0 - 35.0 PGASumma Health Akron CampusMCHC (RBC) [Mass/Vol]30.8 g/dLUniversity Hospitals Beachwood Medical CenterMCV (RBC) [Entitic vol]73.5 fLLowUniversity Hospitals Beachwood Medical CenterMonocytes (Bld) [#/Vol]0.5 10*3/uL0.0 - 0.7 10*3/[facility] CenterMonocytes/100 WBC (Bld)7.4 %0.0 - 10.0 %[facility] Medical CenterNeutrophils (Bld) [#/Vol]3.2 10*3/uL1.4 - 6.5 10*3/[facility] Health CenterNeutrophils/100 WBC (Bld)42.5 %37.0 - 75.0 %[facility] Medical CenterPlatelet mean volume (Bld) [Entitic vol]7.9 [facility] SystemPlatelets (Bld) [#/Vol]466 10*3/jYCcwm529 - 400 10*3/[facility] Health CenterRBC (Bld) [#/Vol]4.57 10*6/uL4.0 - 5.4 10*6/[facility] Health CenterWBC (Bld) [#/Vol]7.4 10*3/uL3.6 - 11.0 10*3/OhioHealthCMP FASTINGon 4A:G RATIO1.1 RATIOLow1.3-2.2AVia Christi HospitalALBUMIN4.1 G/dlNormal3.5-5.0[facility] HospitalALP [Catalytic activity/Vol]62 U/JUyksxn91-762Kmqmp Cross Junction HospitalALT [Catalytic activity/Vol]23 U/LNormal<35[facility] HospitalAST [Catalytic activity/Vol]45 U/BNvar92-30VsrcmSumner Regional Medical CenterBilirubin [Mass/Vol]0.3 mg/dLNormal0.2-1.3 [facility] CenterCalcium [Mass/Vol]8.8 mg/dLNormal8.4-10.2AVia Christi HospitalChloride [Moles/Vol]110 mmol/EThyu99-469TepvdSumner Regional Medical CenterComment on above:Result Comment: Please note: Triglyceride levels of 600mg/dL or higher may positively bias chlorideresults by approximately 2.1 mmolCO2 [Moles/Vol]23 mmol/XLwtyfk03-34KevjrSumner Regional Medical CenterCreatinine [Mass/Vol]0.80 mg/dLNormal 0.7-1.2AWamego Health Center. GFR, Qqwdgauh109 ml/min/1.73sq.mNormal [facility]. GFR,Non Ubmwtvki12 ml/min/1.73sq.mNormalSumner Regional Medical CenterGFR InformationAverage GFR for 30-39 years old = 107.Normal [facility] Medical CenterComment on above:Result Comment: Chronic Kidney disease, GFR = <60. Kidney failure, GFR = <15. The GFR estimate is not adjusted for extreme body surface area or acute process, nor has it been validated for women or ethnic groups other than and .Glucose [Mass/Vol]81 mg/aPBbwgcx91-424KxbjeSumner Regional Medical CenterComment on above:Result Comment: NORMAL <100 mg/dL PREDIABETES 101-126 mg/dL DIABETES 126 mg/dL or higherPotassium [Moles/Vol]3.9 mmol/LNormal3.5-5.1AVia Christi HospitalProtein [Mass/Vol]7.7 g/dLNormal6.3-8.2[facility] Sodium [Moles/Vol]141 mmol/IZlfcwx710-406KyjcySumner Regional Medical CenterUrea nitrogen [Mass/Vol]9 mg/dLNormal7-20[facility] Medical CenterCOMPREHENSIVE METABOLIC PANELon 24-98-6348Detgaph [Mass/Vol]4.1 G/dl3.5 - 5.0 G/dlUniversity Hospitals Beachwood Medical Center Albumin/Globulin [Mass ratio]1.1 {ratio}LowUniversity Hospitals Beachwood Medical CenterALP [Catalytic activity/Vol]62 U/[facility] SystemALT [Catalytic activity/Vol]23 U/LNINF [facility] SystemAST [Catalytic activity/Vol]45 U/[facility] Bilirubin [Mass/Vol]0.3 mg/dLUniversity Hospitals Beachwood Medical CenterCalcium [Mass/Vol]8.8 mg/dLUniversity Hospitals Beachwood Medical CenterChloride [Moles/Vol]110 mmol/Memorial HospitalComment on above:Please note: Triglyceride levels of 600mg/dL or higher may positively bias chloride results by approximately 2.1 mmolCO2 [Moles/Vol]23 mmol/[facility] SystemCreatinine [Mass/Vol]0.80 mg/dLUniversity Hospitals Beachwood Medical CenterGFR COMMENTAverage GFR for 30-39 years old = 107.[facility] Beach[facility] Medical CenterComment on above:Chronic Kidney disease, GFR = <60. Kidney failure, GFR = <15. The GFR estimate is not adjusted for extreme body surface area or acute process, nor has it been validated for women or ethnic groups other than and . GFR/1.73 sq M.predicted among blacks MDRD (S/P/Bld) [Vol rate/Area]104 mL/min/{1.73_m2}ml/min/1.73sq.[facility] SystemGFR/1.73 sq M.predicted among non-blacks MDRD (S/P/Bld) [Vol rate/Area]86 mL/min/{1.73_m2}ml/min/1.73sq.[facility] HospitalGlucose post fast [Mass/Vol]81 mg/dLUniversity Hospitals Beachwood Medical CenterComment on above: NORMAL <100 mg/dL PREDIABETES 101-126 mg/dL DIABETES 126 mg/dL or higher Interpretation and review of laboratory resultsAbnormPremier Health Miami Valley Hospital Potassium [Moles/Vol]3.9 mmol/[facility] SystemProtein [Mass/Vol]7.7 g/dL [facility] Health SystemSodium [Moles/Vol]141 mmol/LAvita Health SystemUrea nitrogen [Mass/Vol]9 mg/dLAvita Health SystemAvita Health SystemHCG ( test) Ql (U)on 15-35-9707Rdote [facility]c Health SystemHCG QUALITATIVE, URINEon 84-35-7780DEP ( test) Ql (U)NegativeAvita Uc Health SystemNo Panel Informationon 17-32-9125Eqhbofnovilazm and review of laboratory resultsAbnormalASumma Health Akron CampusAviSentara RMH Medical Center SystemURINALYSIS, MACROon 50-06-3186Xegcpjzar Ql (U)Negative NEGATIVEAvita Health SystemClarity (U)CLEARCLEARAvita Uc Health SystemColor (U) YELLOWYELLOWUniversity Hospitals Beachwood Medical CenterGlucose Test strip (U) [Mass/Vol]NegativeNEGATIVE mg/dlUniversity Hospitals Beachwood Medical CenterHemoglobin Ql (U)NegativeNEGATIVEMercy Health Perrysburg Hospital System Ketones (U) [Mass/Vol]NegativeNEGATIVE mg/dlUniversity Hospitals Beachwood Medical CenterLeukocyte esterase Test strip Ql (U)MODERATEAbnormalNEGATIVEEating Recovery Center A Behavioral Hospitalta Uc Health SystemNitrite Ql (U)NegativeNEGATIVEAvita Health SystempH (U)6.0 [pH]5.0 - 7.0[facility] System Protein Ql (U)NegativeNEGATIVE mg/dlCranston General Hospital Health SystemSpecific gravity (U) [Rel density]1.0101.010 - 1.025[facility] SystemUrobilinogen (U) [Mass/Vol]0.2 mg/dLMercy Health Perrysburg Hospital SystemURINE HCG QUALon 88-21-8789Byhe HCG ( test) Ql (U)NegativeNormalAvita Cross Junction HospitalURINE MACROSCOPICon 97-17-0885Tvhzavapf Ql (U)NegativeNormalNEGATIVEAvita Cross Junction HospitalClarity (U)CLEARNormalCLEAR AviMount Sinai Health SystemColor (U)YELLOWNormalYELLOWAvita Cross Junction HospitalGlucose Ql (U)NegativeNormalNEGATIVEAvita Cross Junction HospitalpH (U)6.0 [pH]Normal5.0-7.0 AviMount Sinai Health SystemURINE HEMOGLOBINNegativeNormalNEGATIVEAvita Cross Junction HospitalURINE KETONENegativeNormalNEGATIVEAvita Cross Junction HospitalURINE LEUKOTEST MODERATEAbnormalNEGATIVEAvita French HospitalURINE NITRATESNegativeNormal NEGATIVESumner Regional Medical CenterURINE SPEC GRAVITY1.034Uxsgiw1.010-1.025[facility] TOTAL PROTEINNegativeNormalNEGPeoples Hospital Urobilinogen Qn (U)0.2 {Ivone'U}/dLNormal0.2-1.0[facility] MICROSCOPICon 75-50-4906Mneewrwn LM.HPF (Urine sed) [#/Area]TRACEAbnormal NEGATIVEUniversity Hospitals Beachwood Medical CenterCasts LM.LPF (Urine sed) [#/Area]NONENONE /LPFASumma Health Akron CampusCrystals LM Nom (Urine sed)NONENONKettering Health SpringfieldEpithelial cells LM Ql (Urine sed)5 TO 10/HPFUniversity Hospitals Beachwood Medical CenterMucus Ql (Urine sed) NegativeNEGATIVEUniversity Hospitals Samaritan Medical CenterC LM.HPF (Urine sed) [#/Area]Negative NEGATIVE /[facility] HospitalUrine sediment comments LM Edson (Urine sed) CULTURE CRITERIA NOT MET, NO CULTURE PERFORMED.[facility] LM.HPF (Urine sed) [#/Area]1 TO 5NEGATIVE /[facility] SystemBACTERIATRACEAbnormal NEGATIVESumner Regional Medical CenterCASTSNONENormalNONCincinnati VA Medical CenterCRYSTAL NONENormalNONCincinnati VA Medical CenterEpithelial cells LM Ql (Urine sed)5 TO 10 NormalSumner Regional Medical CenterMucus Ql (Urine sed)NegativeNormalNEGATIVEMarion Hospital COMMENTCULTURE CRITERIA NOT MET, NO CULTURE PERFORMED. NormalSumner Regional Medical CenterURINE RBC'SNegativeNormalNEGATIVEMarion Hospital WBC'S1 TO 5NormalNEGATIVESumner Regional Medical CenterCBCon 02-16-2024 ABSOLUTE BAS0.1 10*3/uLNormal0.0-0.2AVia Christi HospitalABSOLUTE EOS0.0 10*3/uLNormal0.0-0.7AV[facility] Christi HospitalABSOLUTE NEUTROPHIL COUNT2.7 10*3/uL Normal1.4-6.5AV[facility] Christi HospitalBasophils/100 WBC (Bld)1.4 %Normal0.0-2.0 [facility] CenterDTYPEAUTO DIFFNormalAvita French HospitalEosinophils/100 WBC (Bld)0.5 %Normal0.0-11.0AviMount Sinai Health SystemLymphocytes (Bld) [#/Vol]2.1 10*3/uLNormal1.2-3.4[facility] HospitalLymphocytes/100 WBC (Bld)40.3 %Normal 20.0-55.0AviMercy San Juan Medical Center HospitalMonocytes (Bld) [#/Vol]0.3 10*3/uLNormal0.0-0.7 [facility] CenterMonocytes/100 WBC (Bld)5.6 %Normal0.0-10.0[facility] CenterNeutrophils/100 WBC (Bld)52.2 %Bstrmz03.0-75.0[facility] Erythrocyte distribution width (RBC) [Ratio]17.0 %High11.5-14.5AVia Christi HospitalHematocrit (Bld) [Volume fraction]35.2 %Low36.0-48.0[facility] CenterHemoglobin (Bld) [Mass/Vol]10.9 g/dLLow12.0-16.0[facility] MCH (RBC) [Entitic mass]22.6 pgLow26.0-35.0[facility] HospitalHC (RBC) [Mass/Vol]30.9 g/yODxtglj69.0-37.0[facility] CenterMCV (RBC) [Entitic vol] 73.0 fLLow80.0-100.0[facility] CenterPlatelet mean volume (Bld) [Entitic vol]7.3 fLLow7.4-11.0[facility] CenterPlatelets (Bld) [#/Vol]529 10*3/uL [id number] French HospitalRBC (Bld) [#/Vol]4.81 10*6/uLNormal4.0-5.4[facility] French HospitalWBC (Bld) [#/Vol]5.1 10*3/uLNormal3.6-11.0[facility] A [facility], EDIF, PLATELETon [id number] BASOPHIL COUNT0.1 10*3/uL0.0 - 0.2 10*3/[facility] CenterBasophils/100 WBC (Bld)1.4 %0.0 - 2.0 %[facility] CenterDifferential cell count method Nom (Bld)AUTO DIFF%[facility] CenterEosinophils (Bld) [#/Vol]0.0 10*3/uL0.0 - 0.7 10*3/[facility] Eosinophils/100 WBC (Bld)0.5 %0.0 - 11.0 %[facility] CenterErythrocyte distribution width (RBC) [Ratio]17.0 %High11.5 - 14.5 %[facility] Hematocrit (Bld) [Volume fraction]35.2 %Low36.0 - 48.0 %[facility] Hemoglobin (Bld) [Mass/Vol]10.9 g/dLMercy Health Defiance HospitalInterpretation and review of laboratory resultsAbnoSamaritan North Health CenterLymphocytes (Bld) [#/Vol] 2.1 10*3/uL1.2 - 3.4 10*3/[facility] CenterLymphocytes/100 WBC (Bld)40.3 % 20.0 - 55.0 %[facility] CenterMCH (RBC) [Entitic mass]22.6 pgLow26.0 - 35.0 PG [facility] CenterMCHC (RBC) [Mass/Vol]30.9 g/dLUniversity Hospitals Beachwood Medical CenterMCV (RBC) [Entitic vol]73.0 fLMercy Health Defiance HospitalMonocytes (Bld) [#/Vol]0.3 10*3/uL0.0 - 0.7 10*3/[facility] CenterMonocytes/100 WBC (Bld)5.6 %0.0 - 10.0 %[facility] CenterNeutrophils (Bld) [#/Vol]2.7 10*3/uL1.4 - 6.5 10*3/[facility] CenterNeutrophils/100 WBC (Bld)52.2 %37.0 - 75.0 %[facility] CenterPlatelet mean volume (Bld) [Entitic vol]7.3 fLLowUniversity Hospitals Beachwood Medical CenterPlatelets (Bld) [#/Vol]529 10*3/vYRdtk265 - 400 10*3/[facility] CenterRBC (Bld) [#/Vol]4.81 10*6/uL4.0 - 5.4 10*6/[facility] CenterWBC (Bld) [#/Vol]5.1 10*3/uL3.6 - 11.0 10*3/[facility] HospitalCHEM 7 FASTINGon 02-16-2024 Chloride [Moles/Vol]109 mmol/NXgdb19-967XrdzjSumner Regional Medical CenterComment on above: Result Comment: Please note: Triglyceride levels of 600mg/dL or higher may positively bias chlorideresults by approximately 2.1 mmolCO2 [Moles/Vol]22 mmol/AJschsv05-51BgkbySumner Regional Medical CenterCreatinine [Mass/Vol]0.70 mg/dLNormal 0.7-1.2AWamego Health Center. GFR, Evcujbih544 ml/min/1.73sq.mNormal [facility]. GFR,Non Tzsjiogt154 ml/min/1.73sq.mNormal [facility] CenterGFR InformationAverage GFR for 30-39 years old = 107. NormalSumner Regional Medical CenterComment on above:Result Comment: Chronic Kidney disease, GFR = <60. Kidney failure, GFR = <15. The GFR estimate is not adjusted for extreme body surface area or acute process, nor has it been validated for women or ethnic groups other than and .Glucose [Mass/Vol]106 mg/uOPyyi57-767XrxvrSumner Regional Medical CenterComment on above:Result Comment: NORMAL <100 mg/dL PREDIABETES 101-126 mg/dL DIABETES 126 mg/dL or higherPotassium [Moles/Vol]3.8 mmol/LNormal3.5-5.1ARehabilitation Hospital of South Jersey HospitalSodium [Moles/Vol]139 mmol/PWmebax501-428CwnalSumner Regional Medical Center Urea nitrogen [Mass/Vol]8 mg/dLNormal7-20Av[facility] Cross Junction HospitalCHEM 7 (LYTES,BUN,CREA,GLUC)on 24-56-8413Swlkgybj [Moles/Vol]109 mmol/LHighUniversity Hospitals Beachwood Medical CenterComment on above:Please note: Triglyceride levels of 600mg/dL or higher may positively bias chloride results by approximately 2.1 mmolCO2 [Moles/Vol]22 mmol/[facility] Health SystemCreatinine [Mass/Vol]0.70 mg/dLUniversity Hospitals Beachwood Medical CenterGFR COMMENTAverage GFR for 30-39 years old = 107.[facility] CenterComment on above:Chronic Kidney disease, GFR = <60. Kidney failure, GFR = <15. The GFR estimate is not adjusted for extreme body surface area or acute process, nor has it been validated for women or ethnic groups other than and . GFR/1.73 sq M.predicted among blacks MDRD (S/P/Bld) [Vol rate/Area]121 mL/min/{1.73_m2}ml/min/1.73sq.mASelect Medical TriHealth Rehabilitation Hospital SystemGFR/1.73 sq M.predicted among non-blacks MDRD (S/P/Bld) [Vol rate/Area]100 mL/min/{1.73_m2}ml/min/1.73sq.m [facility] CenterGlucose post fast [Mass/Vol]106 mg/dLHarrison Community Hospital Comment on above: NORMAL <100 mg/dL PREDIABETES 101-126 mg/dL DIABETES 126 mg/dL or higher Potassium [Moles/Vol]3.8 mmol/[facility] Health SystemSodium [Moles/Vol]139 mmol/L [facility] CenterUrea nitrogen [Mass/Vol]8 mg/dLUniversity Hospitals Beachwood Medical CenterCT ABDOMEN/PELVIS WITH CONTRASTon [id number] ABDOMEN/PELVIS WITH CONTRASTEXAM: CT ABDOMEN/PELVIS WITH CONTRAST TECHNIQUE: Axial CT [...] mass lesion. 3. There is no obstructive uropathy.[facility] Abdomen and Pelvis W contrast Nery [id number]: 1. Status post cholecystectomy with slight compensatory dilatation of the intrahepatic bile ducts. 2. There is no acute intra-abdominal inflammatory process, bowel obstruction, or mass lesion. 3. There is no obstructive uropathy. RADIOLOGYEXAM: CT ABDOMEN/PELVIS WITH CONTRAST TECHNIQUE: Axial CT [...] bony lesion or other acute osseous abnormality. RADIOLOGYHarJadon coyle MD - 02/16/2024 EXAM: CT ABDOMEN/PELVIS WITH [...] lesion. 3. There is no obstructive uropathy. [facility] CenterRadiology Study observation (narrative)[facility] [employer] [facility] HospitalCT Abdomen and Pelvis W contrast IVOrdered By: Jadon Ashraf on 62-79-7283NeehoSumma Health Akron Campus Work Phone: HCG ( test) Ql (U)on 78-51-6647AlqbwSumma Health Akron CampusHCG QUALITATIVE, URINEon 95-97-4873OAJ ( test) Ql (U)Negative [facility] CenterHEPATIC FUNCTION PANELon 63-00-0289Gkwreir [Mass/Vol]4.5 g/dL [facility] CenterALP [Catalytic activity/Vol]71 U/[facility] SystemALT [Catalytic activity/Vol]24 U/LNINFMercy Health Perrysburg Hospital SystemAST [Catalytic activity/Vol]27 U/[facility] SystemBilirubin [Mass/Vol]0.5 mg/dLUniversity Hospitals Beachwood Medical CenterBilirubin.direct [Mass/Vol]0.5 mg/dLHarrison Community HospitalProtein [Mass/Vol]8.2 g/dLUniversity Hospitals Beachwood Medical CenterLIPASEon 49-07-7462Okxvuu [Catalytic activity/Vol]127 U/L23 - 300 U/Doctors HospitalLIPASE,SERUMon 02-16-2024 LIPASE,IJJBG552 U/PHchynz99-427NsgwkSumner Regional Medical CenterLIVER PANELon 02-16-2024 Albumin [Mass/Vol]4.5 g/dLNormal3.5-5.0[facility] HospitalALP [Catalytic activity/Vol]71 U/HQmusdo61-991Krbij [facility] HospitalALT [Catalytic activity/Vol]24 U/LNormal<35[facility] HospitalAST [Catalytic activity/Vol]27 U/QYfqkiz97-22Rnwcl [facility] HospitalBilirubin [Mass/Vol]0.5 mg/dLNormal0.2-1.3 AviMount Sinai Health SystemBilirubin.indirect [Mass/Vol]0.5 mg/dLHigh0-0.4ARehabilitation Hospital of South Jersey HospitalProtein [Mass/Vol]8.2 g/dLNormal6.3-8.2AVia Christi HospitalNo Panel Informationon 99-90-3062Nwpdtawvnpffkm and review of laboratory results AbnormalWilson Street HospitalPROTIMEon 59-90-5442HZP Coag (PPP) [Relative time]0.89 {INR}Normal0.88-1.14[facility] Medical CenterComment on above: Result Comment: 2.0-3.0 THERAPEUTIC RANGE 2.5-3.5 MECHANICAL VALVE RANGEPT Coag (PPP) [Time]12.2 xFlkqyd74.8-14.4AVia Christi HospitalPROTIME-INRon 60-75-1577MNG Coag (PPP) [Relative time]0.89 {INR} 0.88 - 1.14[facility] CenterComment on above: 2.0-3.0 THERAPEUTIC RANGE 2.5-3.5 MECHANICAL VALVE RANGE PT Coag (PPP) [Time]12.2 [facility] Hamilton HospitalPortable XR Chest Viewson 43-37-1366NZMSAVMNQA: 1. No acute pulmonary disease. 2. No free air collections underneath the diaphragms. RADIOLOGYXR CHEST 1 VIEW PORTABLE CLINICAL STATEMENT: Abdominal pain. COMPARISON: Chest x-ray August 31, 2020. TECHNIQUE: Single portable upright view. FINDINGS: Cardiac silhouette and mediastinal contours are stable and within normal limits. Lungs appear clear with no focal airspace consolidation, pneumothorax or sizable pleural effusion. No free air collections underneath the diaphragms. No obvious acute osseous abnormality. Davi Delacruz, DO - 02/16/2024 XR CHEST 1 VIEW [...] No free air collections underneath the diaphragms. [facility] Behavioral HospitalSCADA Access [facility] Healthcare SystemRadiology Study observation (narrative)[facility] Portable XR Chest ViewsOrdered By: Davi Cheng on 19-25-7994QrxcySumma Health Akron Campus Work Phone: URINE HCG QUALon 23-75-7037Ruxw HCG ( test) Ql (U)NegativeNoWadsworth-Rittman HospitalXR CHEST 1 VIEW PORTABLEon 02-16-2024 XR CHEST 1 VIEW PORTABLEXR CHEST 1 VIEW PORTABLE CLINICAL STATEMENT: Abdominal [...] 2. No free air collections underneath the diaphragms.[facility] HospitalED Clinical Summaryon [id number] Clinical SummaryED Clinical Summary [place] [address] ED Clinical Summary Person Information Name: ANTONIA NOYOLA/MarianoMary Grace Age: 39 Years : 1985 Sex: Female Language: Senegalese PCP: NONE, XXXX Marital Status: Visit Id: [...] 02/13/2024 01:00:19 ADDRESS: [address] [place] [id number] PHYS DOC NOTES: MEDICAL INFORMATION: Prescriptions Given: New Medications [id number], [address] [place], [place] [id number], [phone] amoxicillin-clavulanate (Augmentin 875 mg-125 mg Tab) 1 Tablets By Mouth every 12 hours for 7 Days.Refills: 0. Medications to Continue with No Changes Other Medications alprazolam (alprazolam 0.25 mg Tab) budesonide-formoterol (Symbicort 80/4.5 inhalation aerosol with adapter) citalopram (citalopram 20 mg Tab) By Mouth every day. diflunisal (diflunisal 500 mg Tab) 1 Tablets By Mouth every 12 hours. Refills: 0. PATIENT EDUCATION INFORMATION: Instructions: Dental Pain Follow up: With: Address: When: Dental: [facility] [phone] In 3 days 02/16/2024 With: Address: When: Dental: [facility] [phone] In 3 days 02/16/2024 With: Address: When: Dental: [facility] [phone] In 3 days 02/16/2024 DIAGNOSIS: Pain, dentalNormalFisher Aquasco Medical CenterED Note-Physicianon 26-92-5250RK Note-PhysicianED Note-Physician Basic Information Time Seen: Ritesh Heath DOEbenezer 02/13/2024 00:30 Chief Complaint right lower jaw pain for several days. states has a bad tooth. needs root canal. taking amoxil and norco without relief History of Present Illness HPI: Patient is a 39-year-old female with past medical history of endometriosis who presents the EDfor right lower dental pain. Patient states this for started on Tuesday and progressively worsened until last night. She states that she has a lot of tooth decay in this area and has had problems with it before. She started taking an old prescription for Augmentin as well as oral Toradol. She wasseen by another physician and was given a short prescription for Ursa which she is also taking butstates that the pain is too severe for [...] of Problems Differential Diagnosis: [] [facility] Data External documents reviewed: N/A My [...] already taking oral Toradol as well as Ursa. We discussed using lidocaine and bupivacaine soaked cotton balls for topical numbing in addition to these medications. Will give her a new prescription for the Augmentin that she is almost out of the old bottle. We discussed need for close follow-up with dentistry. Patient states understanding agreement this plan was discharged s table condition. Shared decision making: As above Code [...] q12hr Follow-up With When Contact Information Dental: [facility] [phone] In 3 days 02/16/2024 EDT Additional Instructions: Dental: [facility] [phone] In 3 days 02/16/2024 EDT Additional Instructions: Dental: [facility] [phone] In 3 days 02/16/2024 EDT Additional Instructions: [...] data available. Diagnostic Results No qualifying data available.T[facility]carawas HospitalComment on above: Result Comment: Electronically Signed By: Ritesh Heath DO\.br\Date and Time Signed: 02/13/24 00:51 EDTED Patient Summaryon [id number] Patient SummaryED Patient Summary [place] [id number] Patient Discharge Instructions Person Information Name: ANTONIA NOYOLA Age: 39 Years Arrival Date: 02/13/2024 00:20:34 Discharge Diagnosis: Pain, dental Primary Care Physician: NONE, XXXX Provider Information Primary Provider: Ritesh Heath DO Advanced Judo Instructor:Shazia The exam and treatment you received in the Emergency Department were for an urgent problem and are not intended as complete care. It is important that you follow up with a doctor, nurse practitioner,or physician?s program assistant for ongoing care. If your symptoms become worse or you do not improve as expected and you are unable to reach your usual health care provider, you should return to the Emergency Department. We are available 24 hours a day. ANTONIA NOYOLA has been given the following list of patient education materials, prescriptions and follow-up instructions: Follow-up Instructions: With: Address: When: Dental: [facility] [phone] In 3 days 02/16/2024 With: Address: When: Dental: [facility] [phone] In 3 days 02/16/2024 With: Address: When: Dental: [facility] [phone] In 3 days 02/16/2024 In the event that this physician does not participate in your insurance network, please consult with your insurance company to find a nearby participating provider. Patient Education Materials: Dental Pain A MESSAGE TO ALL PATIENTS REGARDING OPIOIDS PRESCRIPTION OPIOIDS: WHAT YOU NEED TO KNOW Prescription opioids can be used to help relieve uvhxunau-ua-xbwmgu pain and are often prescribed following a [...] and have fewer risks and side effects. Optionsmay include: ? Pain relievers such as acetaminophen, [...] unused prescription opioids: Find your community drug take- back program or yourFastgenrmacy mail-back program, or flush them down the toilet, following guidance from the Food and Drug Administration (www.fda.gov/Drugs/ResourcesForYou). ? Visit www.cdc.gov/drugoverdose to learn about the risks of opioids abuse and overdose. ? If you believe you may be struggling with addiction, tell your health care professi (more contentnot included)...Tuscarawas HospitalC REACTIVE PROTEINon 05-31-7866HIM [Mass/Vol]mg/LNormal0.000-0.744PFostoria City HospitalComment on above:Performed By: #### CBCA, CMP, 3040-3, 91799-6, 1987-10, #### [facility] ([id number]) [address] [place] [address] 26356KIF AND AUTO DIFFon 18-19-3932NYANHHPP BASOPHIL0.1 X10E9/L Normal0.0-0.2ProMedTorrance Memorial Medical CenterComment on above:Performed By: #### CBCA, CMP, 3040-3, 61123-5, 1987-10, #### [facility] ([id number]) [address] [place] [address] 81021WLWPNAOY NEUTROPHIL4.6 X10E9/LNormal1.5-6.6ProGraham Regional Medical CenterComment on above:Performed By: #### CBCA, CMP, 3040-3, 25452-6, 1987-10, #### [facility] ([id number]) [address] [place] [address] 13198Inghcrejc/100 WBC (Bld)1.0 %NormalMercy Health St. Rita's Medical Center Comment on above:Performed By: #### CBCA, CMP, 3040-3, 00260-0, 1987-10, #### [facility] ([id number]) [address] [place] [address] 06613Sukhepbmoam (Bld) [#/Vol]0.1 10*3/uLNormal0.0-0.4ProGraham Regional Medical CenterComment on above:Performed By: #### CBCA, CMP, 3040-3, 36976-9, 1987-10, #### [facility] ([id number]) [address] [place] [address] 04635Roqhddldpqr/100 WBC (Bld)1.8 %[facility] Comment on above:Performed By: #### CBCA, CMP, 3040-3, , 1987-10, #### [facility] ([id number]) [address] [place] [address] 76988Uehuzcwrubu distribution width (RBC) [Ratio]17.1 %High11.5-15.0 ProMMercy HospitalComment on above:Performed By: #### CBCA, STEVE, 0-3, , 1987-10, #### [facility] ([id number]) [address] [place] [address] 24062Thegtwxiil (Bld) [Volume fraction]34.8 %Ahx75-88NkqHqqfnuMercy Health St. Rita's Medical CenterComment on above:Performed By: #### CBCA, STEVE, 0-3, , 1987-10, #### [facility] ([id number]) [address] [place] [address] 47387Rknivzxdsk (Bld) [Mass/Vol]10.9 g/dLLow11.7-15.5PFostoria City HospitalComment on above:Performed By: #### CBCA, CMP, 0-3, , 1987-10, #### [facility] ([id number]) [address] [place] [address] 56670Nwzhnacimff (Bld) [#/Vol]1.9 10*3/uLNormal1.0-3.5PFostoria City HospitalComment on above:Performed By: #### CBCA, CMP, 0-3, , 1987-10, #### [facility] ([id number]) [address] [place] [address] 09187Hwrxbdxzqmw/100 WBC (Bld)26.4 %NormalMercy Health St. Rita's Medical Center Comment on above:Performed By: #### CBCA, CMP, 0-3, , 1987-10, #### [facility] ([id number]) [address] [place] [address] 31534FVS (RBC) [Entitic mass]22.7 qePea08-93PlaSgrkxoMercy Health St. Rita's Medical CenterComment on above:Performed By: #### CBCA, CMP, 3040-3, 61528-9, 1987-10, #### [facility] ([id number]) [address] [place] [address] 50966HMWL (RBC) [Mass/Vol]31.3 g/oZZhx44-13YinGppvtcGraham Regional Medical CenterComment on above:Performed By: #### CBCA, CMP, 0-3, , 1987-10, #### [facility] ([id number]) [address] [place] [address] 02066BPG (RBC) [Entitic vol]72 mSSdo03-730ThmSdckdnMercy Health St. Rita's Medical Center Comment on above:Performed By: #### CBCA, CMP, 3040-3, 51998-1, 1987-10, #### [facility] ([id number]) [address] [place] [address] 70045Ygijnhwmc (Bld) [#/Vol]0.4 10*3/uLNormal0-0.9Mercy Health St. Rita's Medical CenterComment on above:Performed By: #### CBCA, CMP, 3040-3, 03257-0, 1987-10, #### [facility] ([id number]) [address] [place] [address] 73159Kdqyeynbq/100 WBC (Bld)5.8 %NormalMercy Health St. Rita's Medical Center Comment on above:Performed By: #### CBCA, CMP, 3040-3, 86254-9, 1987-10, #### [facility] ([id number]) [address] [place] [address] 05493Hlkxoxtwaph/100 WBC (Bld)65.0 %NormalMercy Health St. Rita's Medical Center Comment on above:Performed By: #### CBCA, CMP, 3040-3, 30216-7, 1987-10, #### [facility] ([id number]) [address] [place] [address] 93543Erktrxrq mean volume (Bld) [Entitic vol]7.6 fLNormal7-[address] Rita's Medical CenterComment on above:Performed By: #### CBCA, CMP, 3040-3, 69194-6, 1987-10, #### [facility] ([id number]) [address] [place] [address] 12513Aowpcszbm (Bld) [#/Vol]532 10*3/iAFdft106-073SvuOhzaqdGraham Regional Medical CenterComment on above:Performed By: #### CBCA, CMP, 3040-3, 95857-8, 1987-10, #### [facility] ([id number]) [address] [place] [address] 77601WMZ COUNT4.80 X10E12/LNormal3.80-5.20[facility] Comment on above:Performed By: #### CBCA, CMP, 3040-3, 82132-3, 1987-10, #### [facility] ([id number]) [address] [place] [address] 91349UYP (Bld) [#/Vol]7.0 10*3/uLNormal4.0-11.0Mercy Health St. Rita's Medical CenterComment on above:Performed By: #### CBCA, CMP, 3040-3, 51225-6, 1987-10, #### [facility] ([id number]) [address] [place] [address] 27550NSRNZXIXB/GC BY B[facility] HEALTH RICHMONDemmy 23-85-6377JJZWGWSPP/GC BY PCRSPECIMEN SOURCE VAGINAL CHLAMYDIA DNA(PCR) Negative (qualifier value) Chlamydia trachomatis not detected by nucleic acid amplification. This does not exclude the possibility of infection because results are dependent on adequate specimen collection. GONORRHOEAE DNA(PCR) Negative (qualifier value) Neisseria gonorrhoeae not detected by nucleic acid amplification. This does not exclude the possibility of infection because results are dependent on adequate specimen collection.NormalMercy Health St. Rita's Medical Center Comment on above:Performed By: #### CGS #### [facility] ([id number]) [address] [place] [address], [address] [place], [place] [address]EEYUKRDMGDOKT METABOLIC PANELon 14-10-7938Qsxrtgp [Mass/Vol]4.3 g/dLNormal3.2-5.3ProMedTorrance Memorial Medical CenterComment on above:Performed By: #### STEVE NAYAK, 3040-3, 62895-4, 1987-10, #### [facility] ([id number]) [address] [place] [address] 96234WAJ [Catalytic activity/Vol]76 U/QApsypa67-328EetFonppuMercy Health St. Rita's Medical CenterComment on above:Performed By: #### STEVE NAYAK, 3040-3, 02675-5, 1987-10, #### [facility] ([id number]) [address] [place] [address] 68308KHN [Catalytic activity/Vol]28 U/LNormal0-31PFostoria City HospitalComment on above:Performed By: #### STEVE NAYAK, 3040-3, 17392-7, 1987-10, #### [facility] ([id number]) [address] [place] [address] 17681Rdvim gap [Moles/Vol]7 mmol/LNormal5-15Mercy Health St. Rita's Medical CenterComment on above:Performed By: #### STEVE NAYAK, 3040-3, 20027-9, 1987-10, #### [facility] ([id number]) [address] [place] [address] 09215NCP [Catalytic activity/Vol]20 U/LNormal0-41ProGraham Regional Medical CenterComment on above:Performed By: #### STEVE NAYAK, 3040-3, 22448-9, 1987-10, #### [facility] ([id number]) [address] [place] [address], [place] [address]Xdwcpyabb [Mass/Vol]1.0 mg/dLNormal0.3-1.2PFostoria City HospitalComment on above:Performed By: #### STEVE NAYAK, 3040-3, , 1987-10, #### [facility] ([id number]) [address] [place] [address] 05833Ichnoxg [Mass/Vol]9.0 mg/dLNormal8.5-10.5PFostoria City HospitalComment on above:Performed By: #### STEVE NAYAK, 3040-3, 54503-6, 1987-10, #### [facility] ([id number]) [address] [place] [address] 13639Stxfojka [Moles/Vol]102 mmol/QVjamxt72-074TgoVpfvivGraham Regional Medical CenterComment on above:Performed By: #### STEVE NAYAK, 3040-3, 77848-0, 1987-10, #### [facility] ([id number]) [address] [place] [address] 63644YP7 [Moles/Vol]22 mmol/SExvnhv94-68YnoCcrgkwFostoria City Hospital Comment on above:Performed By: #### STEVE NAYAK, 3040-3, 77140-3, 1987-10, #### [facility] ([id number]) [address] [place] [address] 72346Azhpfjxvoh [Mass/Vol]0.76 mg/dLNormal0.40-1.00Mer[facility] Health St. Rita's Medical CenterComment on above:Result Comment: METHOD TRACEABLE TO IDMS STANDARD Performed By: #### STEVE NAYAK, 3040-3, 69697-2, 1987-10, #### [facility] ([id number]) [address] [place] [address] 51090vTSP (CKD-EPI) NON-RACE DEPENDENT>90Normal>59ProGraham Regional Medical CenterComment on above:Result Comment: Reported eGFR is based on the CKD-EPI 2020 equation that does not use a race coefficient.Performed By: #### STEVE NAYAK, 0-3, , , #### [facility] ([id number]) [address] [place] [address] 95801Eglreit [Mass/Vol]109 mg/zBRzqy73-74RpjUjwawgMercy Health St. Rita's Medical Center Comment on above:Performed By: #### STEVE NAYAK, 3040-3, , 1987-10, #### [facility] ([id number]) [address] [place] [address] 21816Hudijsebn [Moles/Vol]4.1 mmol/LNormal3.5-5.0Mer[facility] Health St. Rita's Medical CenterComment on above:Performed By: #### STEVE NAYAK, 3040-3, , 1987-10, #### [facility] ([id number]) [address] [place] [address] 06125Yvtpmpp [Mass/Vol]8.2 g/dLHigh6.0-8.0[facility] Comment on above:Performed By: #### STEVE NAYAK, 3040-3, 50091-5, 1987-10, #### [facility] ([id number]) [address], [address] FLO[address] [place], [place] 39[address]Rgfmii [Moles/Vol]131 mmol/UWeq908-065AdrFobsgfGraham Regional Medical CenterComment on above:Performed By: #### STEVE NAYAK, 3040-3, , 1985-10, #### [facility] ([id number]) [address] [place] [address] 37339Azjs nitrogen [Mass/Vol]6 mg/dLNormal5-23ProGraham Regional Medical CenterComment on above:Performed By: #### STEVE NAYAK, 3040-3, , 1985-10, #### [facility] ([id number]) [address] [place] [address] 89980YHX ( test) Ql (U)on 09-27-5267Yhyp HCG ( test) Ql (U)NegativeNormalNEGProGraham Regional Medical CenterComment on above: Performed By: #### 2106-3 #### [facility] ([id number]) [address] [place] [address] 39073HGVAVAia 97-98-1069Nrsjlz [Catalytic activity/Vol]33 U/LNormal 17-40ProGraham Regional Medical CenterComment on above:Performed By: #### STEVE NAYAK, 3040-3, , 1985-10, #### [facility] ([id number]) [address] [place] [address] 37965Rxpghnw (P arely) [Moles/Vol]on 28-73-3289FODMBHT W/REFLEX1.5 mmol/LNormal0.4-2.0ProGraham Regional Medical CenterComment on above:Result Comment: Result did not trigger repeat Lactate, re-order if needed.Performed By: #### STEVE NAYAK, 3040-3, 19242-7, 1985-10, #### [facility] ([id number]) [address] [place] [address] 55636SMLMHZCQCmz 99-10-1051Bypvydvke [Mass/Vol]2.0 mg/dLNormal 1.8-2.6ProGraham Regional Medical CenterComment on above:Performed By: #### CBCA, CMP, 3040-3, 34051-7, 1985-5, 79536-1 #### [facility] ([id number]) [address] [place] [address], [place] [address]YZFFA CULTUREon 13-53-2979Chacwopz identified Cx Nom (U)CULTURE RESULTS <10,000 ORGANISMS/ML NORMAL URO GENITAL [facility]oDo[facility] Comment on above:Performed By: #### 2106-3 #### [facility] ([id number]) [address] [place] [address] [place] [address]KJO MACROSCOPIC NURon 45-76-0393OWFYWLDFG NURNegativeNormalNEG [facility] Vacavalley HospitalComment on above:Performed By: #### NUM #### [facility] ([id number]) [address] [place] [address], [place] [address]VIGGR/HGB NURNegativeNormalNEGMercy Health St. Rita's Medical CenterComment on above:Performed By: #### NUM #### [facility] ([id number]) [address] [place] [address], [place] [address]CLWFUVV NURNegativeNormalNEGMercy Health St. Rita's Medical CenterComment on above:Performed By: #### NUM #### [facility] ([id number]) [address] [place] [address], [place] [address]OPYBECL NURNegativeNormalNEGProGraham Regional Medical CenterComment on above:Performed By: #### NUM #### [facility] ([id number]) [address] [place] [address], [place] [address]WJWTMTBMD ESTERASE NURNegativeNormalNEGMercy Health St. Rita's Medical CenterComment on above:Performed By: #### NUM #### [facility] ([id number]) [address] [place] [address], [place] [address]GFNRHGC NURNegativeNormalNEGProGraham Regional Medical CenterComment on above:Performed By: #### NUM #### [facility] ([id number]) [address] [place] [address] [place] [address]DB NUR8.6Agyesg4.0-8.5PFostoria City HospitalComment on above:Performed By: #### NUM #### [facility] ([id number]) [address] [place] [address], [place] [address]JDHPUGP NURNegativeNormalNEGProGraham Regional Medical CenterComment on above:Performed By: #### NUM #### [facility] ([id number]) [address] [place] [address], [place] [address]OUACOZEZ GRAVITY NUR1.539Tyiyug2.003-1.035ProGraham Regional Medical CenterComment on above:Performed By: #### NUM #### [facility] ([id number]) [address] [place] [address], [place] [address]IKQIWMBMQDIT NUR0.2 eu/dLNormal<1.1PFostoria City Hospital Comment on above:Performed By: #### NUM #### [facility] ([id number]) [address] [place] [address], [place] [address]DD PELVIC WITH TRANSVAGINAL AND DUPLEXon 06-38-4970PG PELVIC WITH TRANSVAGINAL AND DUPLEXUS PELVIC WITH TRANSVAGINAL AND DUPLEX CLINICAL INFORMATION: [...] venous outflow structures of the ovaries with arterialand venous spectral waveforms obtained and reviewed in view of the clinical history of Evaluate forOvarian Torsion . Duplex spectral Doppler document arterial and venous spectral waveforms documented within the majorarterial inflow and venous outflow of both ovaries. [...] by Socorro Nixon MD on 01/27/2024 2:[address] Rita's Medical CenterVAGINITIS PANEL PCRon 97-78-7156FRUKEDRSL PANEL PCRBACT. VAGINOSIS DNA Not detected (qualifier value) Qualitative [...] accordance with clinical presentation to determine patient diagnosis.NormalMercy Health St. Rita's Medical CenterComment on above:Performed By: #### 2106-3 #### [facility] ([id number]) [address] [place] [address] FLOOR [place], [place] [address]GV sinus wo conon 58-37-9334NU sinus wo [facility] [place] [address] [place] [address] CT Scan Report Signed Patient: Antonia Noyola MR#: [id number] 757 : 1985 Acct:[id number] Age/Sex: 38 / F ADM Date: 11/25/23 Loc: CT Room: Type: [facility] Attending Dr: Jennifer Duran DO Copies to: Jennifer Duran DO Ordering Provider: Jnenifer Duran DO Date of Service: 11/25/23 CT/CT [...] Davi Figueroa M.D.11/25/2023 4:01 PM Dictation Location: [place] [address] Transcribed By: [facility] 11/25/23 1601 Dictated By: Davi Figueroa DO 11/25/23 1559 Signed By: 11/25/23 1601[facility] Urineon 11-69-6248Gocvzkuk identified Cx Nom (U)Microbiology PROCEDURE: Urine Culture [R1] SOURCE: U CleanCatch BODY SITE: COLLECTED DATE/TIME: 09/30/2023 00:08 EDT RECEIVED DATE/TIME: 09/30/2023 00:24 EDT START DATE/TIME: 09/30/2023 00:24 EDT FREE TEXT SOURCE: Ritesh Heath DO, DO, Noah S. FINAL REPORTS Final Report [] Verified Date/Time: 10/02/2023 07:19 EDT 4,000 cfu/ml Mixed skin contaminants Performing Locations R1: This test was performed at: [facility], [address] [place] [address], [address] , , KvxqwdNieyasSheltering Arms HospitalComment on above:Performed By: #### [id number] #### [address] [address]ZFJfr 10-53-7482Wlhzn gap [Moles/Vol]13 mmol/LNormal6-16S[facility]tering Arms HospitalComment on above:Performed By: #### 3285613, 3457676, 84708123, 9563146, 1620021 ####[place] [address] [place], [place] [address]Ahzpope [Mass/Vol]9.1 mg/dLNormal8.9-11.1FWVUMedicine Barnesville HospitalComment on above:Performed By: #### 7173332, 5007316, 72909011, 9760705, 1733336 ####[place] [address] [place], [place] [address]Bjirurbk [Moles/Vol]105 mmol/RPpyice491-810JzckyiSheltering Arms HospitalComment on above:Performed By: #### 7011822, 1688512, 63401869, 7850764, 5997073 ####[place] [place], [place] [address]UW2 [Moles/Vol]23 mmol/BLtxpec69-51IvrpscSheltering Arms HospitalComment on above:Performed By: #### 1224274, 1489854, 56926535, 9348237, 4449252 ####[place] [address] [place], [place] [address]Vzsmomhjyc [Mass/Vol]0.8 mg/dLNormal0.5-1.3FWVUMedicine Barnesville HospitalComment on above:Performed By: #### 7649532, 2940907, 21296663, 1384723, 3954927 ####[facility] [address] [place], [place] [address]Kezstcz [Mass/Vol]95 mg/mMIowupb27-762WyhcfjSheltering Arms HospitalComment on above:Performed By: #### 8423580, 3779317, 15022114, 0081644, 1911666 ####[place] [address] [place], [place] [address]Cwqujhymw [Moles/Vol]3.1 mmol/LLow3.5-5.3FWVUMedicine Barnesville HospitalComment on above:Performed By: #### 4683525, 7392176, 68946531, 2742001, 5989782 ####[address] [address] Sodium [Moles/Vol]138 mmol/ULlzoag773-766OpczelSheltering Arms HospitalComment on above:Performed By: #### 1673508, 5261925, 59955458, 1352986, 2967745 ####[address] [address]Tfsh nitrogen [Mass/Vol]7 mg/dLNormal5-21S[facility] Arms HospitalComment on above:Performed By: #### 6441491, 9516550, 47316921, 3042642, 3410888 ####[address] [address]Yree nitrogen/Creatinine [Mass ratio]9 No BllfgUvv11-73FwinfvSheltering Arms HospitalComment on above:Performed By: #### 8763838, 5903570, 01827392, 3501849, 9475505 ####[place] [place], [place] [address]OPO w/ Auto Diffon 09-30-2023 Basophils/100 WBC (Bld)0.3 %Normal0.0-2.0Sheltering Arms HospitalComment on above:Performed By: #### 7238392, 3702103, 11510925, 7140915, 7442310 ####[facility] [address] [address] Basophils/Leukocytes Auto (Bld) [Pure # fraction]0.0 E9/LNormal0.0-0.2FWVUMedicine Barnesville HospitalComment on above:Performed By: #### 0909398, 4693006, 74093410, 5997638, 2923295 ####[address] [address]Grixwbjztco (Bld) [#/Vol]0.0 E9/LNormal0.0-0.5 [facility] HospitalComment on above:Performed By: #### 4669034, 0031469, 40788148, 9464271, 5335071 ####[address] [address]Fjtwcnzoapl/100 WBC (Bld)0.4 %Normal0.0-8.0Shel[facility] Arms HospitalComment on above:Performed By: #### 9217876, 1309054, 55966860, 5293855, 9669703 ####[address] [address]Vnzjiiduksp distribution width (RBC) [Ratio]18.3 % High10.9-14.2FWVUMedicine Barnesville HospitalComment on above:Performed By: #### 0446046, 6854027, 05119876, 5796332, 3100699 ####[address] [address]Ddgbzbmtww (Bld) [Volume fraction] 32.6 %Low34.0-46.0Shel[facility] Arms HospitalComment on above:Performed By: #### 7262309, 8924519, 03612792, 6001838, 9228423 ####[address] [address]Yghuzhbbht (Bld) [Mass/Vol]10.3 g/dL Low12.0-16.0Shel[facility] Arms HospitalComment on above:Performed By: #### 3932891, 0005295, 78268244, 2247980, 0932639 ####[facility] [address] [place], [place] [address]Guzsywoqbjc (Bld) [#/Vol]4.1 E9/LHigh 1.0-4.0S[facility] Arms HospitalComment on above:Performed By: #### 3204059, 9458441, 23546751, 9193826, 3177240 ####[facility] Labo [address] [address]Snplogowvch/100 WBC (Bld)39.5 %Normal 14.0-50.0Sheltering Arms HospitalComment on above:Performed By: #### 7626246, 7091461, 34781294, 1143654, 3391925 ####[address] [address]CVD (RBC) [Entitic mass]23.7 pgLow 27.0-34.0Sheltering Arms HospitalComment on above:Performed By: #### 4886160, 8757220, 46677913, 4068509, 5077888 ####[address] [address]VXTB (RBC) [Mass/Vol]31.7 g/dLNormal 31.4-36.0Shel[facility] Arms HospitalComment on above:Performed By: #### 0948496, 4676911, 95431871, 0026490, 1782667 ####[address] [address]DUR (RBC) [Entitic vol]74.9 fLLow 80.0-100.0Shel[facility] Arms HospitalComment on above:Performed By: #### 4551942, 3325861, 29374269, 6297980, 1579444 ####[address] [address]Iewyruqaa (Bld) [#/Vol]0.7 E9/LNormal 0.2-1.0S[facility] Arms HospitalComment on above:Performed By: #### 4448552, 6876627, 17998621, 1193825, 8078707 ####[facility] [address] [address]Fdublbbzahc (Bld) [#/Vol]5.4 E9/LNormal 2.0-7.5FWVUMedicine Barnesville HospitalComment on above:Performed By: #### 1024540, 7716221, 39809356, 5163586, 4265634 ####[address] [address]Ihpjzddciph/100 WBC (Bld)53.1 %Normal 36.0-75.0S[facility] Arms HospitalComment on above:Performed By: #### 2297060, 0338088, 61914633, 2540588, 6629877 ####[address] [address]Znrpjbrh848.0 E9/QEldrmj995.0-500.0Shel[facility] Arms HospitalComment on above:Performed By: #### 2466034, 0612520, 16863668, 8893400, 6563498 ####[address] [address]Cwfewfpu mean volume (Bld) [Entitic vol]7.7 fL Normal6.4-10.8Shel[facility] Arms HospitalComment on above:Performed By: #### 1712226, 1057626, 97158230, 7106919, 9661389 ####[address] [address]BNH (Bld) [#/Vol]4.3 E12/LNormal 4.3-5.9S[facility] Arms HospitalComment on above:Performed By: #### 8666512, 1645041, 74125197, 0775404, 0331793 ####[address] [address]AIN corrected for nucl RBC Auto (Bld) [#/Vol]10.3 E9/LNormal4.0-11.0Fisher [facility] Medical CenterComment on above: Performed By: #### 3675245, 2941176, 98890002, 5946959, 1029950 ####[facility] [address] [place], [place] [address]IEGTWIJHESklkdii By: SYSTEM SYSTEM on 27-59-4185Aygqucm [Mass/Vol]4.4 g/dLNormal3.3 - 5.0 gm/dL Remisol ChemAlbumin/Globulin [Mass ratio]1.5 {ratio}Normal1.1 - 2.2Remisol Chem ALP [Catalytic activity/Vol]64 [iU]/lOvbywj96 - 98 Int._Unit/LRemisol ChemALT No additional P-5'-P [Catalytic activity/Vol]9 [iU]/dNormal6 - 46 Int._Unit/L Remisol ChemAnion gap [Moles/Vol]13 mmol/LNormal6 - 16 mEq/LRemisol ChemAST [Catalytic activity/Vol]12 [iU]/dNormal5 - 43 Int._Unit/LRemisol ChemBilirubin [Mass/Vol]0.2 mg/dLNormal0.0 - 1.1 mg/dLRemisol ChemBilirubin.direct [Mass/Vol] 0.0 mg/dLNormal0.0 - 0.4 mg/dLRemisol ChemBilirubin.indirect [Mass or moles/Vol] 0.2 mg/dLNormal0.1 - 0.9 mg/dLRemisol ChemCalcium [Mass/Vol]9.1 mg/dLNormal8.9 - 11.1 mg/dLRemisol ChemChloride [Moles/Vol]105 mmol/EMptxnn827 - 111 mmol/L Remisol ChemCO2 [Moles/Vol]23 mmol/CRvmrla06 - 31 mmol/LRemisol ChemCreatinine [Mass/Vol]0.8 mg/dLNormal0.5 - 1.3 mg/dLRemisol JirexPLA33 mL/min/1.73 a0Gyqpif >=59mL/min/1.73 l1Vznuxzg ChemGlobulin (S) [Mass/Vol]3.0 g/dLNormal1.4 - 4.0 gm/dLRemisol ChemGlucose [Mass/Vol]95 mg/iLWwtbov91 - 199 mg/dLRemisol Chem Lipase [Catalytic activity/Vol]61 U/LHigh13 - 58 unit/LRemisol ChemPotassium [Moles/Vol]3.1 mmol/LLow3.5 - 5.3 mmol/LRemisol ChemProtein [Mass/Vol]7.4 g/dL Normal6.0 - 7.8 gm/dLRemisol ChemSodium [Moles/Vol]138 mmol/DQsotfb603 - 145 mmol/LRemisol ChemUrea nitrogen [Mass/Vol]7 mg/dLNormal5 - 21 mg/dLRemisol Chem Urea nitrogen/Creatinine [Mass ratio]9 mg/mgLow10 - 20Remisol ChemDischarge Instructionson 85-21-9136Riyutgzym Instructions [id number]#[id number] Regional Hospitaler [facility] Clinical Summaryon 07-46-4611AL Clinical Summary [place] [address] ED Clinical Summary Person Information Name: ANTONIA NOYOLA/[facility] Age: 38 Years : 1985 Sex: Female Language: Senegalese PCP: NONE, XXXX Marital Status: Visit Id: [...] 09/30/2023 02:15:05 ADDRESS: [address] [place] [id number] PHYS DOC NOTES: MEDICAL INFORMATION: Prescriptions Given: [...] Cyst Follow up: With: Address: When: Rose Herr [facility] [place] [address], [place] [address] Business (1) In 3 days 10/03/2023 DIAGNOSIS: AP (abdominal pain); Ovarian cystNormalFisher Aquasco Medical CenterED Note-Physicianon 37-75-8542XQ Note-PhysicianBasic Information Time Seen: Ritesh Heath DO 09/29/2023 [...] taking oral tramadol, Toradol, Bentyl, and a Ursa at home and has had no significant relief. She does have some nausea but no vomiting. No change in bowel movements. No urinary symptoms. She reports that she has had multiple ovarian cysts and did schedule a VIDEO SYSTEM REPAIRER appointment for possible hysterectomy but that is [...] of Problems Differential Diagnosis: [] [facility] Data External documents reviewed: N/A My [...] large hemorrhagic cyst on the right ovary measuring5.5 cm. At that time she had good [...] of 3.1 but is otherwise overall reassuring. 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 Royal and another VIDEO SYSTEM REPAIRER in the area to see if he [...] mL, Soln-IV, IV, Once, Stop date 09/29/23 23:50:00EDT, STAT, Start date 09/29/23 23:50:00 EDT, Infuse [...] Zofran 4 mg/2 mL (more content not included)...[facility] Comment on above:Result Comment: Electronically Signed By: Ritesh Heath DO\.br\Date and Time Signed: 09/30/23 02:02 EDTED Patient Education Noteon 62-17-4300PS Patient Education NoteObstetrics and Gynecology Ovarian Cyst An ovarian cyst [...] Follow these instructions at home: ? Take bafa-hxs-lhvkhun and prescription medicines only as told by [...] provider. Document Revised: 11/06/2020 Document Reviewed: 11/06/2020 [employer] Patient Education ? 2022 [employer].[facility] ED Patient Summaryon 70-81-6100MR Patient Summary [address] [address] Patient Discharge Instructions Person Information Name: ANTONIA NOYOLA Age: 38 Years Arrival Date: 09/29/2023 23:38:37 Discharge Diagnosis: AP (abdominal pain); Ovarian cyst Primary Care Physician: NONE, XXXX Provider Information Primary Provider: Ritesh Heath DO Advanced Judo Instructor:None The exam and treatment you received in the Emergency Department were for an urgent problem and are not intended as complete care. It is important that you follow up with a doctor, nurse practitioner,or physician?s program assistant for ongoing care. If your symptoms [...] Follow-up Instructions: With: Address: When: Rose Royal [address] [place] [address] Business (1) In 3 days 10/03/2023 In the event that this physician does not participate in your insurance network, please consult with your insurance company to find a nearby participating provider. Patient Education Materials: Ovarian Cyst A MESSAGE TO ALL PATIENTS REGARDING OPIOIDS PRESCRIPTION OPIOIDS: WHAT YOU NEED TO KNOW Prescription opioids can be used to help relieve yvpiovwv-lz-bhelmo pain and are often prescribed following a [...] and have fewer risks and side effects. Optionsmay include: ? Pain relievers such as acetaminophen, [...] unused prescription opioids: Find your community drug take- back program or I-frontdesk mail-back program, or flush them down the toilet, following guidance from the Food and Drug Administration (www.fda.gov/Drugs/ResourcesForYou). ? Visit www.cdc.gov/drugoverdose to learn about the risks of opioids abuse and overdose. ? If you believe you may be struggling with addiction, tell your health career consultant and ask for guidance or call [facility]?S National Helpline at 8-713-233-POKF. r Source: [place] Department o (more content not included)...[facility] HospitalHEMATOLOGYOrdered By: SYSTEM SYSTEM on 95-70-5821Xmxjqopyi/100 WBC (Bld)0.3 %Normal0.0 - 2.0 %Remisol HemeBasophils/Leukocytes Auto (Bld) [Pure # fraction]0.0 E9/LNormal0.0 - 0.2 E9/LRemisol HemeEosinophils (Bld) [#/Vol]0.0 E9/LNormal0.0 - 0.5 E9/LRemisol HemeEosinophils/100 WBC (Bld)0.4 %Normal0.0 - 8.0 %Remisol HemeErythrocyte distribution width (RBC) [Ratio]18.3 %High10.9 - 14.2 %Remisol HemeHematocrit (Bld) [Volume fraction]32.6 %Low34.0 - 46.0 % Remisol HemeHemoglobin (Bld) [Mass/Vol]10.3 g/dLLow12.0 - 16.0 gm/dLRemisol Heme Lymphocytes (Bld) [#/Vol]4.1 E9/LHigh1.0 - 4.0 E9/LRemisol HemeLymphocytes/100 WBC (Bld)39.5 %Eyokom10.0 - 50.0 %Remisol HemeMCH (RBC) [Entitic mass]23.7 pgLow 27.0 - 34.0 pgRemisol HemeMCHC (RBC) [Mass/Vol]31.7 g/uAJgbtax79.4 - 36.0 gm/dL Remisol HemeMCV (RBC) [Entitic vol]74.9 fLLow80.0 - 100.0 fLRemisol Heme Monocytes (Bld) [#/Vol]0.7 E9/LNormal0.2 - 1.0 E9/LRemisol HemeMonocytes/100 WBC (Bld)6.7 %Normal4.0 - 14.0 %Remisol HemeNeutrophils (Bld) [#/Vol]5.4 E9/LNormal 2.0 - 7.5 E9/LRemisol HemeNeutrophils/100 WBC (Bld)53.1 %Gzrnon29.0 - 75.0 % Remisol OzshNotcnjbr363.0 E9/ZEcastu984.0 - 500.0 E9/LRemisol HemePlatelet mean volume (Bld) [Entitic vol]7.7 fLNormal6.4 - 10.8 fLRemisol HemeRBC (Bld) [#/Vol] 4.3 E12/LNormal4.3 - 5.9 E12/LRemisol HemeWBC corrected for nucl RBC Auto (Bld) [#/Vol]10.3 E9/LNormal4.0 - 11.0 E9/LRemisol HemeHep Func Panelon 09-30-2023 Albumin [Mass/Vol]4.4 g/dLNormal3.3-5.0S[facility] HospitalComment on above:Performed By: #### 9551870, 2393984, 52792913, 5500543, 2418739 ####[facility] [address] [place] [address] Albumin/Globulin (S) [Mass conc ratio]1.5Hzkmlz1.1-2.2Fisher [facility] Medical CenterComment on above:Performed By: #### 2668626, 7566185, 13936418, 1688399, 0199035 ####[address] [address]CHH [Catalytic activity/Vol]64 Int._Unit/FAhljct75-41UfuwtjSheltering Arms HospitalComment on above:Performed By: #### 9896706, 3140852, 19771353, 8725091, 3877314 ####[address] [address]SOF No additional P-5'-P [Catalytic activity/Vol]9 Int._Unit/LNormal6-46 [facility] HospitalComment on above:Performed By: #### 3702623, 9408766, 01219417, 9937857, 3505815 ####[address] [address]BTS [Catalytic activity/Vol]12 Int._Unit/LNormal 5-43S[facility] Arms HospitalComment on above:Performed By: #### 1404897, 8047900, 70110986, 7308596, 3840506 ####[facility] Labo [address] [address]Ilwoodhyk [Mass/Vol]0.2 mg/dLNormal 0.0-1.1FWVUMedicine Barnesville HospitalComment on above:Performed By: #### 6218252, 1402791, 39900197, 3741910, 5804493 ####[facility] Labo [address] [place] [address]Ilqqplggs.direct [Mass/Vol]0.0 mg/dL Normal0.0-0.4FWVUMedicine Barnesville HospitalComment on above:Performed By: #### 6054251, 5802708, 53064006, 0574863, 2616409 ####[address] [address]Zhokakyrr.indirect [Mass or moles/Vol]0.2 mg/dLNormal0.1-0.9S[facility] HospitalComment on above: Performed By: #### 2885894, 3702094, 90686279, 8829387, 5356262 ####[facility] [address] [place], [place] [address]Ylwoqcim (S) [Mass/Vol]3.0 g/dLNormal1.4-4.0S[facility] Arms HospitalComment on above: Performed By: #### 1895746, 3909813, 53762548, 2356859, 6001716 ####[facility] [address] [place] [address]Qihbiqw [Mass/Vol]7.4 g/dLNormal6.0-7.8S[facility] Arms HospitalComment on above:Performed By: #### 7845670, 5229684, 59570086, 3866375, 3776233 ####[address] [address]Gcrfvp Levelon 22-90-5125Imeswn [Catalytic activity/Vol]61 U/JUrpq22-56JxbocrSheltering Arms HospitalComment on above:Performed By: #### 2114908, 8898367, 70288052, 4109058, 0219945 ####[address] [address]EUQAFEAQAxvllzz By: Ariadne Sheehan on 55-34-0943RFJ.beta subunit (U) [Moles/Vol]NegativeNormal [facility] Man SeroU BetaHcg Qualon 09-28-3873OGH.beta subunit (U) [Moles/Vol]Negative NormalSheltering Arms HospitalComment on above:Performed By: #### 65803975 ####[address] [address]LP with Cult Rflxon 72-61-4876Msssbfuk Auto Ql (U)TraceNormalTraceSheltering Arms HospitalComment on above:Performed By: #### 6552948 #### [facility] [address] [place] [address]Lmmbcfnhu Ql (U)NegativeNormalNegativeSheltering Arms HospitalComment on above:Performed By: #### 6638973 #### [facility] [address] [place] [address]Swrwida (U)ClearNormalClearSheltering Arms HospitalComment on above:Performed By: #### 8417639 #### [facility] [address] [place] [address]Stmwo (U)Light-YellowNormalYellowSheltering Arms Hospital Comment on above:Result Comment: Microscopic readings are only performed on those samples that meet specific criteria set forth by [facility].Performed By: #### 1911497 #### [facility] [address] [place] [address]Eymhrdlulm cells.squamous Auto (Urine sed) [#/Area]3-4Abnormal 0-2[facility] CenterComment on above:Performed By: #### [id number] #### [facility] [address] [place] [address] [id number] Ql (U)NegativeNormalNegReg[facility] Comment on above:Performed By: #### [id number] #### [facility] [address] [place] [address] [id number] Auto test strip (U) [Mass/Vol]TraceAbnormalNegative [facility] HospitalComment on above:Performed By: #### [id number] #### [facility] [address], [place] [address]Zawgltq Auto test strip Ql (U)NegativeNormalNegativeSheltering Arms HospitalComment on above:Performed By: #### [id number] #### [facility] [address] [place] [address] [id number] esterase Auto test strip Ql (U)75 Bertrand/uLAbnormal NegativeSheltering Arms HospitalComment on above:Performed By: #### [id number] #### [facility] [address] [place] [address] [id number] Auto Ql (U)NegativeNormalNegativeSheltering Arms HospitalComment on above:Performed By: #### [id number] #### [facility] [address] [place] [address] 364[address]Sjjclit Auto test strip Ql (U)NegativeNormalNegativeSheltering Arms HospitalComment on above:Performed By: #### [id number] #### [facility] [address] [place] [address] 04108aU (U)5.5 [pH]Invalid Interpretation Code5.0-9.0S[facility] Arms HospitalComment on above:Performed By: #### [id number] #### [facility] [address] [place] [address] 77238Rqimrmy Ql (U)[facility] HospitalNormalNegativeSheltering [facility] Hospital Comment on above:Performed By: #### [id number] #### [facility] [address] [place] [address] 88700NQA Ql (U)8-65Fmweokdw8-2FftgjsWVUMedicine Barnesville HospitalComment on above:Performed By: #### [id number] #### [facility] [address] [place] [address] 29390Fkjjcdtz gravity (U) [Rel density]1.017Invalid Interpretation Code1.005-1.030S[facility] Arms HospitalComment on above:Performed By: #### [id number] #### [facility] [address] [place] [address] 07616Rbxiqcmenesq (U) [Mass/Vol]NegativeNormalNegativeSheltering Arms HospitalComment on above:Performed By: #### [id number] #### [facility] [address] [place] [address] 76817PGS Auto (Urine sed) [#/Area]1-5Ylqoym1-2LavpyxWVUMedicine Barnesville HospitalComment on above:Performed By: #### [id number] #### [facility] [address] [place] [address] 82788PJCDYTFOBLInvlkjf By: SYSTEM SYSTEM on 62-52-0989Diwsiere Auto Ql (U)Trace graded/HPFNormalTracegraded/HPFFTMC UA Auto SSBilirubin Ql (U) NegativeNormalNegativemg/dLFTMC UA Auto SSClarity (U)Clear (09/30/23 12:08 AM)NormalClearFTMC UA Auto SSColor (U)Light-Yellow 1 (09/30/23 12:08 AM)NormalYellowFTMC UA Auto SSComment on above:Interpretive Data: Microscopic readings are only performed on those samples that meet specific criteria set forth by [facility].Epithelial cells.squamous Auto (Urine sed) [#/Area]3-4 graded/HPFInvalid Interpretation Code0-2graded/HPFFTMC UA Auto SSGlucose Ql (U)NegativeNormalNegativemg/dLFT UA Auto SSHemoglobin Auto test strip (U) [Mass/Vol]Trace mg/dLInvalid Interpretation CodeNegativemg/dLFTMC UA Auto SSKetones Auto test strip Ql (U) NegativeNormalNegativemg/dLFTMC UA Auto SSLeukocyte esterase Auto test strip Ql (U)75 Bertrand/uL Bertrand/uLInvalid Interpretation CodeNegativeLeu/uLFT UA Auto SSMucus Auto Ql (U)NegativeNormalNegativegraded/LPFFTMC UA Auto SSNitrite Auto test strip Ql (U)NegativeNormalNegativemg/dLFTMC UA Auto SSpH (U)5.5 *NA* (09/30/23 12:08 AM)Invalid Interpretation Code5.0 - 9.0FTMC UA Auto SSProtein Ql (U)NegativeNormalNegativemg/dLFTMC UA Auto SSRBC Ql (U)4-20 graded/HPFInvalid Interpretation Code0-3graded/HPFFTMC UA Auto SSSpecific gravity (U) [Rel density]1.017 *NA* (09/30/23 12:08 AM)Invalid Interpretation Code1.005 - 1.030FTMC UA Auto SS Urobilinogen (U) [Mass/Vol]NegativeNormalNegativemg/dLFTMC UA Auto SSWBC Auto (Urine sed) [#/Area]0-5 graded/HPFNormal0-5graded/HPFFTMC UA Auto SSURINALYSIS Ordered By: Ritesh Heath on 41-18-8964TX Spec DescClean Catch (09/30/23 12:08 AM)[facility] UA Auto SS us Doppler Abd/Pelvis Completeon [id number] Doppler Abd/Pelvis CompleteExam Date/Time: 09/30/2023 02:04 EDT Reason for Exam: Torsion Report PLEASE SEE US Pelvis Non-OB Complete REPORT DATED: 09/30/2023. Ordering Provider: Ritesh Heath FINAL REPORT Dictated: 09/30/2023 4:11 am Harvey Leslie MD Signed (Electronic Signature): 09/30/2023 4:11 am Signed by: Harvey Leslie MD Transcribed by: MILLIE Technologist: [facility] Pelvis Non-OB Completeon [id number] Pelvis Non-OB CompleteExam Date/Time: 09/30/2023 02:03 EDT Reason for Exam: [...] Ultrasound Performed Transvaginal Ultrasound Performed Uterus Position AntevertedNoKettering Health – Soin Medical CenterUS Transvaginal Non-OBon [id number] Transvaginal Non-OBExam Date/Time: 09/30/2023 02:03 EDT Reason for Exam: pssible torsion, known large cyst;Other (please specify) Report PLEASE SEE US Pelvis Non-OB Complete REPORT DATED: 09/30/2023. Ordering Provider: Ritesh Heath FINAL REPORT Dictated: 09/30/2023 4:11 am Harvey Leslie MD Signed (Electronic Signature): 09/30/2023 4:11 am Signed by: Harvey Leslie MD Transcribed by: MILLIE Technologist: GERDANorodSheltering Arms HospitaleGFRon 88-14-6889mTEU30 mL/min/1.73 x8Pxjyyl>=59Sheltering Arms HospitalComment on above:Order Comment: Order added by Discern Expert.Performed By: #### [id number], 7404940, 75925716, 3597783, 6513185 ####[facility] Labo [address] [place], [place] [address]Xitwukd for Treatmenton 05-82-6413Thyuiex for [id number]#1.00[facility] HospitalUA with Cult Rflxon 78-59-3635Usmx of Urine collection methodClean CatchTuscarawas HospitalComment on above:Performed By: #### [id number] #### [facility] [address], [place] [address]CP Clinical Summaryon [id number] Clinical Summary [facility] [address] [place], [place] [address] ED Clinical Summary Person Information Name: ATNONIA NOYOLA[facility] Age: 38 Years : 1985 Sex: Female Language: Senegalese PCP: NONE, XXXX Marital Status: Visit Id: [...] 09/26/2023 18:13:56 ADDRESS: [address] [place] [id number] PHYS DOC NOTES: MEDICAL INFORMATION: Prescriptions Given: New Medications [facility]/pharmacy #[id number], [address], [place] [id number], [phone] diflunisal (diflunisal 500 mg Tab) 1 Tablets [...] INFORMATION: Instructions: Follow up: With: Address: When: [facility] [place] [address] [place] [address] Business (1) In 3 days 09/29/2023 With: Address: When: Tarun BRADEN [facility], [address] [place] [address] [place], [place] [phone] Business (1) In 3 days 09/29/2023 With: Address: When: XXXX NONE , [place] In 3 days DIAGNOSIS: Abdominal pain; Constipation; Ovarian cystNormalFisher Aquasco Medical CenterED Patient Education Noteon 25-33-8215DS Patient Education NoteNormSonoma Developmental Center Medical CenterED Patient Summaryon 19-40-1926VO Patient Summary [address] [address] Patient Discharge Instructions Person Information Name: ANTONIA NOYOLA Age: 38 Years Arrival Date: 09/26/2023 13:54:18 Discharge Diagnosis: Abdominal pain; Constipation; Ovarian cyst Primary Care Physician: NONE, XXXX Provider Information Primary Provider: Konstantin Penny DO Advanced Judo Instructor:Shazia The exam and treatment you received in the Emergency Department were for an urgent problem and are not intended as complete care. It is important that you follow up with a doctor, nurse practitioner,or physician?s program assistant for ongoing care. If your symptoms become worse or you do not improve as expected and you are unable to reach your usual health care provider, you should return to the Emergency Department. We are available 24 hours a day. ANTONIA NOYOLA has been given the following list of patient education materials, prescriptions and follow-up instructions: Follow-up Instructions: With: Address: When: [place] [phone] Business (1) In 3 days 09/29/2023 With: Address: When: Tarun CRISTOFER [address] [place] [address] Business (1) In 3 days 09/29/2023 With: Address: When: XXXX [facility] [place] In 3 days In the event that this physician does not participate in your insurance network, please consult with your insurance company to find a nearby participating provider. Patient Education Materials: A MESSAGE TO ALL PATIENTS REGARDING OPIOIDS PRESCRIPTION OPIOIDS: WHAT YOU NEED TO KNOW Prescription opioids can be used to help relieve yrzrpcim-yv-afstgw pain and are often prescribed following a [...] and have fewer risks and side effects. Optionsmay include: ? Pain relievers such as acetaminophen, [...] unused prescription opioids: Find your community drug take- back program or [facility] transplant hospitalFastgenPowderhook mail-back program, or flush them down the toilet, following guidance from the Food and Drug Administration (www.fda.gov/Drugs/ResourcesForYou). ? Visit www.cdc.gov/drugoverdose to learn about the risks of opioids abuse and overdose. (more content not included)...Tuscarawas HospitalB hCG Qualon 75-10-5696Jqoo HCG ( test) QlNegativeNormalSheltering Arms Hospital Comment on above:Order Comment: FER Mercado attempting lab work from IV start per Pt request. Phleb on standby if unable to get labs, [id number] 09/26/2023 14:42:36 EDTPerformed By: #### [id number], 30059180, 0586754, 4637996, 3662735 ####[facility] [address] [place], [place] [address]IAE w/ Auto Diff on 85-29-5246Uklbrdfqikga Ql (Bld)PRESENTInvalid Interpretation [facility] HospitalComment on above:Performed By: #### [id number], 86088067, 2414271, 5556585, 8383229 ####[facility] [address] [place], [place] [address]Vflkxecxk/100 WBC (Bld)0.8 %Normal0.0-2.0S[facility] Arms HospitalComment on above:Performed By: #### 58279590, 79060880, 9128654, 4654874, 1902554 ####[facility] [address] [place], [place] [address]Ibmxknneh/Leukocytes Auto (Bld) [Pure # fraction]0.1 E9/L Normal0.0-0.2FWVUMedicine Barnesville HospitalComment on above:Performed By: #### 00834702, 31023021, 0624594, 9280253, 0919961 ####[facility] [address] [place], [place] [address]Ctntlheynqt (Bld) [#/Vol]0.0 E9/L Normal0.0-0.5FWVUMedicine Barnesville HospitalComment on above:Performed By: #### 43851558, 27650092, 8735364, 2857417, 9271816 ####[address] [address]Slwpcuwjmor/100 WBC (Bld)0.0 %Normal 0.0-8.0S[facility] Arms HospitalComment on above:Performed By: #### 05272323, 71508819, 5186528, 9193347, 5710848 ####[facility] [address] [place] [address]Pmzhtnvpxyi Auto Ql (Bld)PRESENTInvalid Interpretation [facility] HospitalComment on above:Performed By: #### 99113127, 79318596, 1233121, 5484903, 5956077 ####[address] [address]Ifgfbyfjjtn (Bld) [#/Vol]1.6 E9/LNormal1.0-4.0[facility] HospitalComment on above:Performed By: #### 06714941, 21931512, 7305610, 6185447, 6705914 ####[address] [address]Tptaqclcbke/100 WBC (Bld)22.7 %Normal 14.0-50.0S[facility] Arms HospitalComment on above:Performed By: #### 63098643, 81540231, 2683408, 0727228, 5418212 ####[address] [address]Dacnhxwuzf Ql (Bld)PRESENTInvalid Interpretation [facility] HospitalComment on above:Performed By: #### 28191017, 39097806, 3960961, 6653554, 1304227 ####[address] [address]Znncstfow (Bld) [#/Vol]0.3 E9/LNormal0.2-1.0[facility] HospitalComment on above:Performed By: #### 02262594, 78417616, 5896851, 0688599, 1663429 ####[address] [address]Fgknxgedmhe (Bld) [#/Vol]5.1 E9/L Normal2.0-7.5FWVUMedicine Barnesville HospitalComment on above:Performed By: #### 38363804, 05106090, 9659388, 0672765, 7112874 ####[address] [address]Rccgaxoylaz/100 WBC (Bld)71.6 %Normal 36.0-75.0S[facility] Arms HospitalComment on above:Performed By: #### 68930737, 23716818, 3715241, 8191216, 6010270 ####[address] [address]Mlxnduuqqhx distribution width (RBC) [Ratio]17.8 %High10.9-14.2FWVUMedicine Barnesville HospitalComment on above:Performed By: #### 55408143, 08152711, 2486918, 6214285, 4945394 ####[address] [address]Hikckdiplh (Bld) [Volume fraction]36.2 %Apbtrp24.0-46.0S[facility] Arms HospitalComment on above: Performed By: #### 18285165, 71837036, 7772097, 0474546, 0314105 ####[address] [address]Stdncwtwzv (Bld) [Mass/Vol]11.2 g/dLLow12.0-16.0[facility] HospitalComment on above: Performed By: #### 89779414, 64226302, 2217682, 4864139, 0935872 ####[address] [address]GFF (RBC) [Entitic mass]23.2 pgLow27.0-34.0[facility] HospitalComment on above: Performed By: #### 69215747, 10953830, 1682760, 2739368, 3037143 ####[address] [address]PNCP (RBC) [Mass/Vol]31.0 g/dLLow31.4-36.0[facility] HospitalComment on above: Performed By: #### 66452515, 03667716, 7898306, 1295770, 2128903 ####[address] [address]QRS (RBC) [Entitic vol]74.9 fLLow80.0-100.0[facility] HospitalComment on above: Performed By: #### 07278974, 51319335, 2176698, 4419109, 9016970 ####[address] [address]Sqgjaiam mean volume (Bld) [Entitic vol]7.5 fLNormal6.4-10.8[facility] HospitalComment on above:Performed By: #### 74412699, 81148849, 4617378, 2692906, 8131581 ####[address] [address] Platelets (Bld) [#/Vol]461.0 E9/LCwlmqn518.0-500.0[facility] Comment on above:Performed By: #### 59070026, 50696847, 9782741, 3728074, 6823899 ####[address] [address]WUS (Bld) [#/Vol]4.8 E12/LNormal4.3-5.9[facility] HospitalComment on above:Performed By: #### 50486470, 80668237, 3937355, 9283721, 3410846 ####[address] [address]PHE corrected for nucl RBC Auto (Bld) [#/Vol]7.1 E9/LNormal4.0-11.0[facility]er [facility] CenterComment on above:Performed By: #### 84032950, 00022210, 6367773, 4755672, 1527686 ####[facility] [address] hungerford hospitalyaniLA [place], [place] [address]LVDTDAKFDImpxgpc By: SYSTEM SYSTEM on 13-70-1483Ewggmodvdmzc Screen method >1000 ng/mL Ql (U)NEGATIVE 7 (09/26/23 2:49 PM)NormalNEGATIVERemisol ChemComment on above:Interpretive Data: Negative Cutoff: <1000 ng/mLBarbiturates Screen Ql (U)NEGATIVE 8 (09/26/23 2:49 PM)NormalNEGATIVERemisol ChemComment on above:Interpretive Data: Negative Cutoff: <200 ng/mLBenzodiazepines Ql (U)NEGATIVE 1 (09/26/23 2:49 PM)NormalNEGATIVERemisol ChemComment on above:Interpretive Data: Negative Cutoff: <200 ng/mLCannabinoids Screen Ql (U)NEGATIVE 6 (09/26/23 2:49 PM)NormalNEGATIVERemisol ChemComment on above:Interpretive Data: Negative Cutoff: <50 ng/mLCocaine Ql (U)NEGATIVE 2 (09/26/23 2:49 PM)NormalNEGATIVERemisol ChemComment on above:Interpretive Data: Negative Cutoff: <300 ng/mLOpiates Screen Ql (U)NEGATIVE 4 (09/26/23 2:49 PM)NormalNEGATIVERemisol ChemComment on above:Interpretive Data: Negative Cutoff: <300 ng/mLPhencyclidine Screen method >25 ng/mL Ql (U)NEGATIVE 5 (09/26/23 2:49 PM)NormalNEGATIVERemisol ChemComment on above:Interpretive Data: Negative Cutoff: <25 ng/mL These drug screen results are to be used for medical (i.e., treatment) purposes only. Unconfirmed drug screening results must not be used for non-medical purposes (e.g., employment testing, legal testing).U FentanylNEGATIVE 9 (09/26/23 2:49 PM)NormalNEGATIVERemisol ChemComment on above:Interpretive Data: Negative Cutoff: <5 ng/mL These drug screen results are to be used for medical (i.e., treatment) purposes only. Unconfirmed drug screening results must not be used for non-medical purposes (e.g., employment testing, legal testing).Albumin [Mass/Vol]4.7 g/dL Normal3.3 - 5.0 gm/dLRemisol ChemAlbumin/Globulin [Mass ratio]1.3 {ratio}Normal 1.1 - 2.2Remisol ChemALP [Catalytic activity/Vol]61 [iU]/tLdnjrj02 - 98 Int._Unit/LRemisol ChemALT No additional P-5'-P [Catalytic activity/Vol]11 [iU]/dNormal6 - 46 Int._Unit/LRemisol ChemAnion gap [Moles/Vol]15 mmol/LNormal6 - 16 mEq/LRemisol ChemAST [Catalytic activity/Vol]16 [iU]/dNormal5 - 43 Int._Unit/LRemisol ChemBilirubin [Mass/Vol]0.8 mg/dLNormal0.0 - 1.1 mg/dLRemisol ChemCalcium [Mass/Vol]9.7 mg/dLNormal8.9 - 11.1 mg/dLRemisol ChemChloride [Moles/Vol]107 mmol/QXydexv107 - 111 mmol/LRemisol ChemCO2 [Moles/Vol]20 mmol/L Low21 - 31 mmol/LRemisol ChemCreatinine [Mass/Vol]0.7 mg/dLNormal0.5 - 1.3 mg/dL Remisol GorumDAR468 mL/min/1.73 h3Mpuxns>=59mL/min/1.73 v2Rwbmhun ChemGlobulin (S) [Mass/Vol]3.6 g/dLNormal1.4 - 4.0 gm/dLRemisol ChemGlucose [Mass/Vol]120 mg/kFDwhuzk13 - 199 mg/dLRemisol ChemLipase [Catalytic activity/Vol]18 U/LNormal 13 - 58 unit/LRemisol ChemPotassium [Moles/Vol]3.8 mmol/LNormal3.5 - 5.3 mmol/L Remisol ChemProtein [Mass/Vol]8.3 g/dLHigh6.0 - 7.8 gm/dLRemisol ChemSodium [Moles/Vol]138 mmol/EFbthxw969 - 145 mmol/LRemisol ChemUrea nitrogen [Mass/Vol]5 mg/dLNormal5 - 21 mg/dLRemisol ChemUrea nitrogen/Creatinine [Mass ratio]7 mg/mg Low10 - 20Remisol ChemCMPon 25-78-8379Auvlqjm [Mass/Vol]4.7 g/dLNormal3.3-5.0 [facility] HospitalComment on above:Performed By: #### 52086856, 72703140, 9591780, 5619088, 7403292 ####[facility] Lab [place], [place] [address]Ifakrdq/Globulin (S) [Mass conc ratio] 1.5Kpggaa7.1-2.2FWVUMedicine Barnesville HospitalComment on above:Performed By: #### 78055077, 24397081, 8708918, 2479718, 6943473 ####[facility] [address] [place] [address]ZOR [Catalytic activity/Vol]61 Int._Unit/ATxfyqj45-09JvwqhjSheltering Arms HospitalComment on above:Performed By: #### 73865898, 80320147, 1744166, 6864265, 2361031 ####[facility] [address] [place] [address]NHW No additional P-5'-P [Catalytic activity/Vol]11 Int._Unit/LNormal6-46[facility] Comment on above:Performed By: #### 10898761, 32158873, 3628644, 4762835, 4987739 ####[facility] [address] [place] [address]Gddpz gap [Moles/Vol]15 mmol/LNormal6-16[facility] HospitalComment on above:Performed By: #### 50505399, 64317314, 9307279, 6157466, 5150700 ####[facility] [address] [place] [address]PRA [Catalytic activity/Vol]16 Int._Unit/LNormal5-43[facility] Comment on above:Performed By: #### 31198741, 61504475, 9860603, 8947030, 2634103 ####[facility] [address] [place], [place] [address]Dlychgzig [Mass/Vol]0.8 mg/dLNormal0.0-1.1FWVUMedicine Barnesville Hospital Comment on above:Performed By: #### 13999263, 43246158, 7679101, 9449919, 5663254 ####[address] [address]Cyficnr [Mass/Vol]9.7 mg/dLNormal8.9-11.1FWVUMedicine Barnesville HospitalComment on above:Performed By: #### 74065179, 67025524, 0327793, 0985579, 5792536 ####[address] [address] Chloride [Moles/Vol]107 mmol/GTusywx375-506YvqvesSheltering Arms HospitalComment on above:Performed By: #### 61761601, 65967802, 8185310, 5861117, 7559140 ####[place] [address] [place], [place] [address]OB6 [Moles/Vol]20 mmol/KVyo52-70HwbcznSheltering Arms HospitalComment on above: Performed By: #### 55230367, 67390390, 7884184, 5255190, 1001739 ####[facility] [address] [place], [place] [address]Hfdjznfjjb [Mass/Vol]0.7 mg/dLNormal0.5-1.3FWVUMedicine Barnesville HospitalComment on above: Performed By: #### 78947831, 16332377, 5668714, 1810222, 0044367 ####[facility] [address] [place], [place] [address]Mkneqvsz (S) [Mass/Vol]3.6 g/dLNormal1.4-4.0[facility] HospitalComment on above: Performed By: #### 82935719, 56443351, 3220125, 0940362, 4645577 ####[address] [address]Wjgkzkb [Mass/Vol]120 mg/oORvhudz07-450TggbpdSheltering Arms HospitalComment on above: Performed By: #### 44772486, 33150318, 5990755, 9251341, 0140310 ####[address] [address]Jolvvvqmr [Moles/Vol]3.8 mmol/LNormal3.5-5.3FWVUMedicine Barnesville HospitalComment on above: Performed By: #### 29548639, 98833552, 6878111, 7882961, 9780960 ####[address] [address]Jjsxccu [Mass/Vol]8.3 g/dLHigh6.0-7.8[facility] HospitalComment on above: Performed By: #### 85600251, 18858974, 2355853, 5361265, 4163904 ####[address] [address]Jetgfs [Moles/Vol]138 mmol/UAqaxio351-229QeqdisSheltering Arms HospitalComment on above: Performed By: #### 48673223, 35549268, 0718892, 3671830, 5729125 ####[address] [address]Leny nitrogen [Mass/Vol]5 mg/dLNormal5-21[facility] HospitalComment on above:Performed By: #### 07133205, 69808471, 0698762, 8688326, 1555016 ####[address] [address]Fezc nitrogen/Creatinine [Mass ratio]7 No ZpthxKgt80-82IgouqpSheltering Arms HospitalComment on above: Performed By: #### 32238097, 62246475, 1280409, 5988800, 4466597 ####[facility] [address] [place], [place] [address]SK Abdomen/Pelvis w/ Contraston 13-94-9408SX Abdomen/Pelvis w/ ContrastExam Date/Time: 09/26/2023 16:00 EDT Reason for Exam: [...] Contrast: Isovue 300 Contrast amount in ml's: 100NoKettering Health – Soin Medical CenterConsent for Treatmenton 16-84-5176Scuyvuf for Treatment [id number]#1.00TIFSt. Anthony's HospitalDischarge Instructionson 96-46-0713Tjlgsoxqe Instructions [id number]#1.00TIFCleveland Clinic Avon Hospital CenterED Note-Physicianon 66-73-0581PP Note-PhysicianBasic Information Time Seen: Konstantin Penny DO 09/26/2023 14:25 Chief Complaint c/o nausea and left abdominal pain radiating to back that started back up yesterday. took bentyl ibuprofen and tramadol around noon with no relief. recent admission to [facility] a week ago for intusseption, ovarian cyst, elevated lactic. denies V/D History of Present Illness 38 year old female presents to the emergency department with chief complaint of abdominal pain. patient states this pain started yesterday and has associated nausea without vomiting. Patient states she was admitted 10 days ago to [facility] for intussusception, ovarian cysts, and elevated lactic. She states she was admitted for one day and that she had another CT done that showed resolution of the intussusception. She reports she was discharged home but went back to [place] [facility] yesterdayfor similar pain. She reports they did an XR of her abdomen with concerns for constipation and gaveher toradol, bentyl, and a percocet, none of which helped her pain. She states the pain is worse today than yesterday and that she took ibuprofen and tramadol prior to arrival with no relief. She desc ribes the pain as a ripping pain in [...] and noted. We did review workup from [facility] just recently. Risks and benefits of [...] so certainly that remains in the differential d iagnosis. We did refer her to [facility] for follow-up. Patient also was found to have some constipation on CT therefore we talked about dietary and lifestyle modifications and I did prescribe MiraLAX here as well. She is to follow-up in the outpatient setting return to ER symptoms should change or worsenshe is comfortable with this plan. I, Dr. Penny had a xzea-jj-rout interaction with the patient. I personally performed [...] q12hr, # 20 tab(s), Refills(s) 0, [id number], cm, 09/26/23 14:18:00 EDT, Height/Length [...] cm, 09/26/23 14:18:00 EDT, (more content not included)...Tuscarawas HospitalComment on above:Result Comment: Electronically Signed By: Konstantin Penny DO\.br\Date and Time Signed: 09/26/23 17:52EDTHEMATOLOGYOrdered By: SYSTEM SYSTEM on 67-24-5663Hvnbdiukaljh Ql (Bld)PRESENT *NA* (09/26/23 2:45 PM)Invalid Interpretation CodeRemisol HemeBasophils/100 WBC (Bld) 0.8 %Normal0.0 - 2.0 %Remisol HemeBasophils/Leukocytes Auto (Bld) [Pure # fraction]0.1 E9/LNormal0.0 - 0.2 E9/LRemisol HemeEosinophils (Bld) [#/Vol]0.0 E9/LNormal0.0 - 0.5 E9/LRemisol HemeEosinophils/100 WBC (Bld)0.0 %Normal0.0 - 8.0 %Remisol HemeErythrocyte distribution width (RBC) [Ratio]17.8 %High10.9 - 14.2 %Remisol HemeHematocrit (Bld) [Volume fraction]36.2 %Obgxxl74.0 - 46.0 % Remisol HemeHemoglobin (Bld) [Mass/Vol]11.2 g/dLLow12.0 - 16.0 gm/dLRemisol Heme Hypochromia Auto Ql (Bld)PRESENT *NA* (09/26/23 2:45 PM)Invalid Interpretation CodeRemisol HemeLymphocytes (Bld) [#/Vol]1.6 E9/LNormal1.0 - 4.0 E9/LRemisol HemeLymphocytes/100 WBC (Bld)22.7 % Vvqjfk31.0 - 50.0 %Remisol HemeMCH (RBC) [Entitic mass]23.2 pgLow27.0 - 34.0 pg Remisol HemeMCHC (RBC) [Mass/Vol]31.0 g/dLLow31.4 - 36.0 gm/dLRemisol HemeMCV (RBC) [Entitic vol]74.9 fLLow80.0 - 100.0 fLRemisol HemeMicrocytes Ql (Bld) PRESENT *NA* (09/26/23 2:45 PM)Invalid Interpretation CodeRemisol HemeMonocytes (Bld) [#/Vol] 0.3 E9/LNormal0.2 - 1.0 E9/LRemisol HemeMonocytes/100 WBC (Bld)4.9 %Normal4.0 - 14.0 %Remisol HemeNeutrophils (Bld) [#/Vol]5.1 E9/LNormal2.0 - 7.5 E9/LRemisol HemeNeutrophils/100 WBC (Bld)71.6 %Fdwbij29.0 - 75.0 %Remisol HemePlatelet mean volume (Bld) [Entitic vol]7.5 fLNormal6.4 - 10.8 fLRemisol HemePlatelets (Bld) [#/Vol]461.0 E9/SRpilqx140.0 - 500.0 E9/LRemisol HemeRBC (Bld) [#/Vol]4.8 E12/L Normal4.3 - 5.9 E12/LRemisol HemeWBC corrected for nucl RBC Auto (Bld) [#/Vol] 7.1 E9/LNormal4.0 - 11.0 E9/LRemisol HemeLipase Levelon 58-29-3845Qbvhho [Catalytic activity/Vol]18 U/NKhodbo23-22GcldhpSheltering Arms HospitalComment on above:Performed By: #### [id number], [id number], 1820503, 3976555, 2659545 ####[facility] [address] [place] [address] Outside Recordson 73-12-8632Bzzlahj Records [id number]#1.00TIFFNormalMarion HospitalEROLOGYOrdered By: Nohemi Taylor on 40-81-0158Jeke HCG ( test) QlNegative (09/26/23 2:45 PM)NormalFAIRFAX COMM[facility] Man SeroU Drug Screenon 37-18-0492Ewytnpxrxidi Screen method >1000 ng/mL Ql (U)NegativeNormalNEGATIVESheltering Arms HospitalComment on above:Result Comment: Negative Cutoff: <1000 ng/mLPerformed By: #### [id number] #### [facility] Laboratory [address], [place] [address]Uiagimjyfwjb Screen Ql (U)NegativeNormalNEGATIVESheltering Arms HospitalComment on above:Result Comment: Negative Cutoff: <200 ng/mL Performed By: #### [id number] #### [facility] [address], [place] [address]Gqngxyhsmgmxztr Ql (U)NegativeNormalNEGATIVESheltering Arms HospitalComment on above:Result Comment: Negative Cutoff: <200 ng/mL Performed By: #### [id number] #### [facility] [address], [place] [address]Hgrpmhbwqtep Screen Ql (U)NegativeNormalNEGATIVESheltering Arms HospitalComment on above:Result Comment: Negative Cutoff: <50 ng/mL Performed By: #### [id number] #### [facility] [address] [place] [address]Hacpriu Ql (U)NegativeNormalNEGATIVESheltering Arms Hospital Comment on above:Result Comment: Negative Cutoff: <300 ng/mLPerformed By: #### [id number] #### [facility] [address], [place] [address]Rysfqrc Screen Ql (U)NegativeNormalNEGATIVESheltering Arms HospitalComment on above:Result Comment: Negative Cutoff: <300 ng/mLPerformed By: #### [id number] #### [facility] [address], [place] [address]Uumhoxpzjwmjj Screen method >25 ng/mL Ql (U)NegativeNormal NEGATIVESheltering Arms HospitalComment on above:Result Comment: Negative Cutoff: <25 ng/mL These drug screen results are to be used for medical (i.e., treatment) purposes only. Unconfirmed drug screening results must not be used for non-medical purposes (e.g., employment testing, legal testing).Performed By: #### [id number] #### [facility] [address], [place] [address]B FentanylNegativeNormalNEGATIVESheltering Arms Hospital Comment on above:Result Comment: Negative Cutoff: <5 ng/mL These drug screen results are to be used for medical (i.e., treatment) purposes only. Unconfirmed drug screening results must not be used for non-medical purposes (e.g., employment testing, legal testing).Performed By: #### [id number] #### [facility] [address], [place] [address]IK with Cult Rflxon 64-96-0039Liwzgcmxf Ql (U)NegativeNormal NegativeSheltering Arms HospitalComment on above:Performed By: #### [id number] #### [facility] [address], [place] [address]Pysniyy (U)ClearNormalClearSheltering Arms HospitalComment on above:Performed By: #### [id number] #### [facility] [address], [place] [address]Rtjov (U)ColorlessAbnormalYellowSheltering Arms Hospital Comment on above:Result Comment: Microscopic readings are only performed on those samples that meet specific criteria set forth by [facility].Performed By: #### [id number] #### [facility] [address], [place] [address]Vhacyzs Ql (U)NegativeNormalNegRegency Hospital Cleveland West Comment on above:Performed By: #### [id number] #### [facility] [address], [place] [address]Ykixtaxyex Auto test strip (U) [Mass/Vol]NegativeNormalNegative [facility] Arms HospitalComment on above:Performed By: #### [id number] #### [facility] [address], [place] [address]Opwrvsw Auto test strip Ql (U)NegativeNormalNegativeSheltering Arms HospitalComment on above:Performed By: #### [id number] #### [facility] [address], [place] [address]Fhtlfytwq esterase Auto test strip Ql (U)NegativeNormalNegative [facility] Arms HospitalComment on above:Performed By: #### [id number] #### [facility] [address] [place] [address]Onlzpyw Auto test strip Ql (U)NegativeNormalNegativeSheltering Arms HospitalComment on above:Performed By: #### [id number] #### [facility] [address] [place] [address]yO (U)6.0 [pH]Invalid Interpretation Code5.0-9.0Sheltering Arms HospitalComment on above:Performed By: #### [id number] #### [facility] [address] [place] [address]Hgtxpya Ql (U)NegativeNormalNegativeSheltering Arms Hospital Comment on above:Performed By: #### [id number] #### [facility] [address] [place] [address]Yuzyvebl gravity (U) [Rel density]1.004Invalid Interpretation Code1.005-1.030Sheltering Arms HospitalComment on above:Performed By: #### [id number] #### [facility] [address] [place] [address]Mlycagriwuog (U) [Mass/Vol]NegativeNormalNegativeSheltering Arms HospitalComment on above:Performed By: #### [id number] #### [facility] [address] [place] [address]Raxz of Urine collection methodClean CatchNoKettering Health – Soin Medical CenterComment on above:Performed By: #### [id number] #### [facility] [address] [place] [address]DIIRBGRQNZIgivtda By: SYSTEM SYSTEM on 25-00-9902Jtzhcgxnr Ql (U)NegativeNormalNegativemg/dLFAIRFAX COMMUNITY HOSPITAL – [facility] UA Auto SSClarity (U)Clear (09/26/23 2:49 PM)NormalClearFTMC UA Auto SSColor (U)Colorless 3 *ABN* (09/26/23 2:49 PM)Invalid Interpretation CodeYellowFAIRFAX COMMUNITY HOSPITAL – [facility]IR[facility] UA Auto SSComment on above:Interpretive Data: Microscopic readings are only performed on those samples that meet specific criteria set forth by [facility].Glucose Ql (U)NegativeNormalNegativemg/dLFAIRFAX COMMUNITY HOSPITAL – [facility] UA Auto SSHemoglobin Auto test strip (U) [Mass/Vol]NegativeNormalNegativemg/dLFAIRFAX COMMUNITY HOSPITAL – [facility] UA Auto SSKetones Auto test strip Ql (U)NegativeNormalNegativemg/dLFAIRFAX COMMUNITY HOSPITAL – [facility] UA Auto SSLeukocyte esterase Auto test strip Ql (U)NegativeNormalNegativeLeu/uLFAIRFAX COMMUNITY HOSPITAL – [facility] UA Auto SS Nitrite Auto test strip Ql (U)NegativeNormalNegativemg/dLFAIRFAX COMMUNITY HOSPITAL – [facility] UA Auto SSpH (U) 6.0 *NA* (09/26/23 2:49 PM)Invalid Interpretation Code5.0 - 9.0[facility] UA Auto SSProtein Ql (U)NegativeNormalNegativemg/dLFAIRFAX COMMUNITY HOSPITAL – [facility] UA Auto SSSpecific gravity (U) [Rel density] 1.004 *NA* (09/26/23 2:49 PM)Invalid Interpretation Code1.005 - 1.030[facility] UA Auto SS Urobilinogen (U) [Mass/Vol]NegativeNormalNegativemg/dLFAIRFAX COMMUNITY HOSPITAL – [facility] UA Auto SSURINALYSIS Ordered By: Konstantin Penny on 76-37-9392KX Spec DescClean Catch (09/26/23 2:49 PM)NormalFAIRFAX COMMUNITY HOSPITAL – [facility] UA Auto SS us Pelvis Non-OB Completeon [id number] Pelvis Non-OB CompleteExam Date/Time: 09/26/2023 17:41 EDT Reason for Exam: [...] Ultrasound Performed Transvaginal Ultrasound Performed Uterus Position AntevertedTuscarawas HospitalUS Transvaginal Non-OBon [id number] Transvaginal Non-OBExam Date/Time: 09/26/2023 17:41 EDT Reason for Exam: Pelvic pain Report Please see ultrasound pelvis non-OB complete report Ordering Provider: Konstantin Penny FINAL REPORT Dictated: 09/26/2023 5:53 pm Chad Mo DO Signed (Electronic Signature): 09/26/2023 5:53 pm Signed by: Chad Mo DO Transcribed by: MILLIE Technologist: ENormozzieSheltering Arms HospitaleGFRon 25-96-6651iYLK748 mL/min/1.73 n1Wqketk>=59Sheltering Arms HospitalComment on above:Order Comment: Order added by Discern Expert.Performed By: #### [id number], [id number], 3233107, 6216450, [id number] ####[facility] Lab [address] [place] [place], [place] [address]DIQ With Platelet and Differentialon 77-58-2373Tmybshqcn (Bld) [#/Vol]0.1 10*3/uLNormal0.0-0.2MSt. Thomas More HospitalComment on above:Performed By: #### CBCWD #### [facility] [address] [place] [address] Btridvckh/100 WBC (Bld)0.6 %[facility] Comment on above:Performed By: #### CBCWD #### [facility] [address] [place] [address] Eihsjmbqzny (Bld) [#/Vol]0.1 10*3/uLNormal0.0-0.7Anim[facility] Surgical HospitalComment on above:Performed By: #### CBCWD #### [facility] [address] [place] [address] Eppppohfqgm/100 WBC (Bld)0.6 %[facility] Comment on above:Performed By: #### CBCWD #### [facility] [address] [place] [address] Iyegkmzqfsv distribution width (RBC) [Ratio]15.9 %Critically high 11.5-14.5Animas Surgical HospitalComment on above:Performed By: #### CBCWD #### [facility] [address] [place] [address] Nevytgacqr (Bld) [Volume fraction]34.5 %Low37.0-47.0Anim[facility] Surgical HospitalComment on above:Performed By: #### CBCWD #### [facility] [address] [place] [address] Ddvyaziqcl (Bld) [Mass/Vol]10.1 g/dLLow12.0-16.0Anim[facility] Surgical HospitalComment on above:Performed By: #### CBCWD #### [facility] [address] [place] [address] Rtfaoodgmaf (Bld) [#/Vol]4.4 10*3/uLNormal1.0-4.8[facility] Surgical HospitalComment on above:Performed By: #### CBCWD #### [facility] [address] [place] [address] Fbbiqvyapvb/100 WBC (Bld)54.2 %NormalMercy Regional Medical Center Comment on above:Performed By: #### CBCWD #### [facility] [address] [place] [address] VBM (RBC) [Entitic mass]22.9 pgLow27.0-31.3MSt. Thomas More HospitalComment on above:Performed By: #### CBCWD #### [facility] [address] [place] [address] VULY64.3 %Low33.0-37.0Anim[facility] Surgical HospitalComment on above: Performed By: #### CBCWD #### [facility] [address] [place] [address] YLI (RBC) [Entitic vol]78.2 fLLow79.4-94.8Anim[facility] Surgical HospitalComment on above:Performed By: #### CBCWD #### [facility] [address] [place] [address] Oamnocywg (Bld) [#/Vol]0.5 10*3/uLNormal0.2-0.8Anim[facility] Surgical HospitalComment on above:Performed By: #### CBCWD #### [facility] [address] [place] [address] Pbjrgndix/100 WBC (Bld)6.5 %[facility] Comment on above:Performed By: #### CBCWD #### [facility] [address] [place] [address] Zbgvpjmiqdd (Bld) [#/Vol]3.1 10*3/uLNormal1.4-6.5Anim[facility] Surgical HospitalComment on above:Performed By: #### CBCWD #### [facility] [address] [place] [address] Puayhgxtgwl/100 WBC (Bld)37.9 %[facility] Comment on above:Performed By: #### CBCWD #### [facility] [address] [place] [address] Zfdhiqwbq (Bld) [#/Vol]482 10*3/uLCritically xnex979-136BnpleAnimas Surgical HospitalComment on above:Performed By: #### CBCWD #### [facility] [address] [place] [address] YIL (Bld) [#/Vol]4.41 10*6/uLNormal4.20-5.40Anim[facility] Surgical HospitalComment on above:Performed By: #### CBCWD #### [facility] [address] [place] [address] WYQ (Bld) [#/Vol]8.1 10*3/uLNormal4.8-10.8Anim[facility] Surgical HospitalComment on above:Performed By: #### CBCWD #### [facility] [address] [place] [address] Tqwqpxdkprbrq Metabolic Panelon 87-70-7879Gujpxpr [Mass/Vol]4.4 g/dL Normal3.5-4.6MSt. Thomas More HospitalComment on above:Performed By: #### CMP #### [facility] [address] [place] [address] FUJ [Catalytic activity/Vol]72 U/BLhwmuy68-763UidrdAnimas Surgical HospitalComment on above:Performed By: #### CMP #### [facility] [address] [place] [address] DEN [Catalytic activity/Vol]15 U/LNormal0-33[facility] Surgical HospitalComment on above:Performed By: #### CMP #### [facility] [address] [place] [address] Yuywf gap [Moles/Vol]11 mmol/LNormal9-15Anim[facility] Surgical HospitalComment on above:Performed By: #### CMP #### [facility] [address] [place] [address] BGF [Catalytic activity/Vol]18 U/LNormal0-35[facility] Surgical HospitalComment on above:Performed By: #### CMP #### [facility] [address] [place] [address] Vzyjzjgoy [Mass/Vol]0.4 mg/dLNormal0.2-0.7Anim[facility] Surgical HospitalComment on above:Performed By: #### CMP #### [facility] [address] [place] [address] Vfbnuko [Mass/Vol]9.5 mg/dLNormal8.5-9.9Anim[facility] Surgical HospitalComment on above:Performed By: #### CMP #### [facility] [address] [place] [address] Jljkdrik [Moles/Vol]102 mmol/ICxdctn05-474ZfxvoAnimas Surgical HospitalComment on above:Performed By: #### CMP #### [facility] [address] [place] [address] RK9 [Moles/Vol]24 mmol/WSabvcn00-38JxanlAnimas Surgical Hospital Comment on above:Performed By: #### CMP #### [facility] [address] [place] [address] Fqgkexyqnj [Mass/Vol]0.59 mg/dLNormal0.50-0.90Anim[facility] Surgical HospitalComment on above:Performed By: #### CMP #### [facility] [address] [place] [address] BCJ>90.0Normal>60Anim[facility] Surgical HospitalComment on above: Result Comment: Pediatric calculator link https://www.kidney.org/professionals/kdoqi/gfr_calculatorped Effective Mar 15, 2022 [...] or following therapy that affects renal tubular secretion.Performed By: #### CMP #### [facility] [address] [place] [address] Mpnvveab (S) [Mass/Vol]3.5 g/dLNormal2.3-3.5Anim[facility] Surgical HospitalComment on above:Performed By: #### CMP #### [facility] [address] [place] [address] Sifiwht [Mass/Vol]98 mg/rAGvldxy81-51RuhyySt. Thomas More Hospital Comment on above:Performed By: #### CMP #### [facility] [address] [place] [address] Hqcizcldz [Moles/Vol]3.2 mmol/LLow3.4-4.9[facility] Surgical HospitalComment on above:Performed By: #### CMP #### [facility] [address] [place] [address] Gcdisbb [Mass/Vol]7.9 g/dLNormal6.3-8.0[facility] Comment on above:Performed By: #### CMP #### [facility] [address] [place] [address] Tmmznk [Moles/Vol]137 mmol/HDknfha690-782EilnfAnimas Surgical HospitalComment on above:Performed By: #### CMP #### [facility] [address] [place] [address] Uort nitrogen [Mass/Vol]4 mg/dLLow6-20[facility] Comment on above:Performed By: #### CMP #### [facility] [address] [place] [address] VS NON OB TRANSVAGINALon [id number] NON OB TRANSVAGINAL EXAMINATION: PELVIC ULTRASOUND 09/06/2023 [...] Signed by: Jessy Campos MD 09/06/23 Final resultNoConejos County HospitalUS PELVIS COMPLETEon [id number] PELVIS COMPLETEEXAMINATION: PELVIC ULTRASOUND 09/06/2023 TECHNIQUE: Transabdominal and transvaginal [...] Signed by: Jessy Campos MD 09/06/23 Final resultAnimas Surgical HospitalUrinalysis, reflex to cultureon [id number] Reflexed to CultureNot IndicatedAnimas Surgical HospitalComment on above:Performed By: #### UAR #### [facility] [address] [place] [address] Oastntkhn Ql (U)NegativeNewark-Wayne Community Hospital Comment on above:Performed By: #### UAR #### [facility] [address] [place] [address] Eigotbf (U)ClearNormalClearAnimas Surgical HospitalComment on above:Performed By: #### UAR #### [facility] [address] [place] [address] Freuq (U)YellowNoalStraw/YellAnimas Surgical HospitalComment on above:Performed By: #### UAR #### [facility] [address] [place] [address] Euqopuv Ql (U)>=1000AbnoAdventHealth Castle Rock Comment on above:Performed By: #### UAR #### [facility] [address] [place] [address] Ihldaedrtt Ql (U)TRACEAbnormGrand River Health Comment on above:Performed By: #### UAR #### [facility] [address] [place] [address] Mnwtbys Ql (U)>=80AbnoAdventHealth Castle Rock Comment on above:Performed By: #### UAR #### [facility] [address] [place] [address] Qxylgicyq esterase Test strip Ql (U)NegativeNormalNegAdventHealth PorterComment on above:Performed By: #### UAR #### [facility] [address] [place] [address] Tkbgcxh Ql (U)NegativeNormalNegAdventHealth Porter Comment on above:Performed By: #### UAR #### [facility] [address] [place] [address] jU (U)5.0 [pH]Normal5.0-9.0Anim[facility] Surgical HospitalComment on above:Performed By: #### UAR #### [facility] [address] [place] [address] Hbkujyy Ql (U)TRACEAbnormalNegAdventHealth Porter Comment on above:Performed By: #### UAR #### [facility] [address] [place] [address] Butrjzws gravity (U) [Rel density]1.646Gpsdaq3.005-1.03Anim[facility] Surgical HospitalComment on above:Performed By: #### UAR #### [facility] [address] [place] [address] Fwxzjfikxvdv Qn (U)0.2 {Ivone'U}/dLNormal< 2.0Anim[facility] Surgical HospitalComment on above:Performed By: #### UAR #### [facility] [address] [place] [address] Qrtcf Microscopicon 46-54-1191Wksstagi LM.HPF (Urine sed) [#/Area] NegativeNormalNegAdventHealth PorterComment on above:Performed By: #### UMIC #### [facility] [address] [place] [address] Umtfd Epithelial Cells Snen7-0Agatwg0-4ZczywAnimas Surgical Hospital Comment on above:Performed By: #### UMIC #### [facility] [address] [place] [address] Sdueo Hyaline Casts Hvgs7-2Lwzspu1-5Lnvgi[address] [place] [address] Comment on above:Performed By: #### UMIC #### [facility] [address] [place] [address] Sgbjt RBC Mvic9-2Xcdbodso2-2Qmphd[address] [place], [place] [address]Comment on above:Performed By: #### UMIC #### [facility] [address] [place] [address] Bsxqi WBC Qytc9-1Pmrctc3-4Zlbnt[address] [place], [place] [address]Comment on above:Performed By: #### UMIC #### [facility] [address] [place] [address] DN Note-Physicianon [id number] Note-PhysicianBasic Information Time Seen: Jignesh Dumont DO 07/31/2023 [...] flank down into her left lower abdomen. Shedenies any nausea or vomiting. No diarrhea. No fever, sweats, chills. She reports she has had similar pain although not from her flank in the past. She has a history of endometritis for which she follows with a VIDEO SYSTEM REPAIRER at the [facility]. Review of Systems A 10 [...] for discharge home and follow-up with her VIDEO SYSTEM REPAIRER. Short course of pain medication as prescribed after an OARRS review for this patient. Return precautions were discussed. All questions were answered. The patient was discharged home for outpatient follow-up for her acute on chronic pain. Assessment/Plan Abdominal pain, acute (R10.9: Unspecified abdominal pain) Ordered: acetaminophen-oxycodone, 1 tab(s), Oral, q6hr Pain 8-10 for 3 day(s), 12 tab(s), Refill(s) 0, [facility]/pharmacy #[id number], 165.1, cm, 07/31/23 15:42:00 EST, Height/Length Dosing, 82.9, kg, 07/31/23 15:42:00 EST, Weight Dosing Orders: acetaminophen-oxycodone, 1 EA, Tab, Oral, Once, [...] mL, Soln-IV, IV, Once, Stop date 07/31/23 15:52:00EST, STAT, Start date 07/31/23 15:52:00 EST, Infuse [...] Inj, 4 mg, IV Push TO GO acetaminophen-oxycodone 325 mg - 5 mg, 1 EA, Oral Disposition Plan Patient Discharge Condition Stable Discharge D (more content not included)...NormalSheltering Arms Hospital Comment on above:Result Comment: Electronically Signed By: Jignesh Dumont DO\Date and Time Signed: 08/01/23 09:21 ESTB hCG Qualon 87-87-3948Nwcj HCG ( test) QlNegativeNormalSheltering Arms HospitalComment on above: Performed By: #### [id number], 5408770, 46117312, 11019941, 2010709 ####[facility] [address] [place], [place] [address]IWRqv 07-31-2023 Anion gap [Moles/Vol]15 mmol/LNormal6-16S[facility] Arms HospitalComment on above:Performed By: #### 0239752, 3516031, 02394156, 72300773, 4029124 ####[facility] [address] [place] [address] BUN/Creat Ratio4 No CisulXnk57-28TrwxseSheltering Arms HospitalComment on above: Performed By: #### 8673346, 2638172, 96273199, 28531184, 5762328 ####[address] [place], [place] [address]Adjnnxc [Mass/Vol]9.6 mg/dLNormal8.9-11.1FWVUMedicine Barnesville HospitalComment on above: Performed By: #### 3808618, 6885861, 45239545, 54345513, 8993067 ####[facility] [address] [place], [place] [address]Nxnjvubd [Moles/Vol]106 mmol/UVdrzfi950-249SkgavcSheltering Arms HospitalComment on above: Performed By: #### 8982431, 0876483, 64158753, 69591012, 6334237 ####[facility] [address] [place], [place] [address]GK9 [Moles/Vol] 21 mmol/HHmdmrc41-86RebryvSheltering Arms HospitalComment on above:Performed By: #### 9750781, 6809570, 67845254, 19055989, 2431531 ####[facility] [address] [place], [place] [address]Occsstqrsh [Mass/Vol]0.9 mg/dL Normal0.5-1.3FWVUMedicine Barnesville HospitalComment on above:Performed By: #### 9471651, 2560497, 57160416, 03667853, 8423844 ####[facility] [address] [place], [place] [address]Scalvnk [Mass/Vol]109 mg/dLNormal 55-199S[facility]tering Arms HospitalComment on above:Performed By: #### 9891847, 4427774, 25179637, 45734765, 7380191 ####[facility] [address] [place], [place] [address]Fhcsnpagg [Moles/Vol]3.6 mmol/LNormal 3.5-5.3FWVUMedicine Barnesville HospitalComment on above:Performed By: #### 3933807, 4106331, 62668707, 14094687, 2000652 ####[facility] [address] [place], [place] [address]Wpiedz [Moles/Vol]138 mmol/LNormal 135-145S[facility] Arms HospitalComment on above:Performed By: #### 8340748, 7214661, 82665273, 32851014, 1715644 ####[facility] [address] [place], [place] [address]Zjfa nitrogen [Mass/Vol]mg/dLLow5-21 [facility] HospitalComment on above:Performed By: #### 9415681, 4433590, 60377775, 01607755, 2700133 ####[facility] [address] [place], [place] [address]JNH w/ Auto Diffon 52-20-1586Xlguewflbnpi Ql (Bld) PRESENTInvalid Interpretation CodeSheltering Arms HospitalComment on above: Performed By: #### 8033999, 8734859, 77345644, 13862963, 0281497 ####[address] [address]FnkcgbstoCCSSZVW Invalid Interpretation [facility] HospitalComment on above:Performed By: #### 4854695, 2430321, 04380628, 83518157, 8350923 ####[address] [address]CTP morphology finding Nom (Bld)SEE MORPHOLOGYInvalid Interpretation [facility] HospitalComment on above:Performed By: #### 0020246, 8124518, 89595959, 29640789, 3233207 ####[address] [address] Basophil Absolute0.1 E9/LNormal0.0-0.2FWVUMedicine Barnesville HospitalComment on above:Performed By: #### 8821809, 7745381, 36241484, 04566191, 6872946 ####[address] [address] Basophils/100 WBC (Bld)1.1 %Normal0.0-2.0[facility] HospitalComment on above:Performed By: #### 7698844, 1621620, 09777323, 32602074, 8702004 ####[address] [address]Jna Absolute0.0 E9/LNormal0.0-0.5FWVUMedicine Barnesville HospitalComment on above: Performed By: #### 2651342, 8152686, 01492838, 68139696, 4897334 ####[address] [address]Tbqcsoixctr/100 WBC (Bld)0.2 %Normal0.0-8.0[facility] HospitalComment on above:Performed By: #### 7381380, 3342820, 35063886, 67280204, 7929081 ####[address] [address]Zzileqssruf distribution width (RBC) [Ratio]16.5 %High10.9-14.2FWVUMedicine Barnesville HospitalComment on above:Performed By: #### 9252435, 6349265, 84022931, 99325550, 4278489 ####[address] [address] Hematocrit (Bld) [Volume fraction]36.0 %Kdxbxf33.0-46.0S[facility] Arms HospitalComment on above:Performed By: #### 4961011, 4931113, 32299005, 37746602, 3387263 ####[address] [address]Ftlmhtbobf (Bld) [Mass/Vol]11.4 g/dLLow12.0-16.0[facility] Comment on above:Performed By: #### 3732652, 6640655, 95148731, 02908296, 7738816 ####[address] [address]Sukyg Absolute2.2 E9/LNormal1.0-4.0[facility] HospitalComment on above:Performed By: #### 4205261, 2152671, 85650822, 48214005, 2934332 ####[address] [address] Lymphocytes/100 WBC (Bld)25.3 %Utylwd61.0-50.0[facility] HospitalComment on above:Performed By: #### 5378335, 6100869, 42191268, 65876183, 1099481 ####[address] [address]NQK (RBC) [Entitic mass]24.0 pgLow27.0-34.0[facility] HospitalComment on above:Performed By: #### 4670516, 4221837, 42246957, 51519172, 6179737 ####[address] [address]KFAG (RBC) [Mass/Vol]31.9 g/cWXpkdpp15.4-36.0[facility] HospitalComment on above:Performed By: #### 2299863, 2878576, 60316801, 47043276, 4753070 ####[address] [place], [place] [address]WDI (RBC) [Entitic vol]75.2 fLLow80.0-100.0[facility] HospitalComment on above:Performed By: #### 2884780, 0036852, 43912317, 02087868, 3923958 ####Ordaz [address] [address]Qeuy Absolute0.5 E9/LNormal0.2-1.0[facility] HospitalComment on above: Performed By: #### 6984914, 4237200, 98314695, 01232961, 6950506 ####[address] [address]Ficaxflie/100 WBC (Bld)5.4 %Normal4.0-14.0[facility] HospitalComment on above: Performed By: #### 5523497, 0385681, 00353654, 12457297, 4194611 ####[address] [address]Zxyizl Absolute 5.9 E9/LNormal2.0-7.5FWVUMedicine Barnesville HospitalComment on above:Performed By: #### 6119402, 9965109, 89522548, 19111222, 1693432 ####[address] [address]Awpeez Auto68.0 %Normal 36.0-75.0[facility] HospitalComment on above:Performed By: #### 0637452, 5842670, 87035622, 90253956, 5777109 ####[facility] [address] [place] [address]Hkeqkohr642.0 E9/SIwjf511.0-500.0[facility] HospitalComment on above:Performed By: #### 2287116, 1226044, 54652660, 22822167, 1942624 ####[facility] [address] [place], [place] [address]Lhdtaufs mean volume (Bld) [Entitic vol]7.4 fL Normal6.4-10.8[facility] HospitalComment on above:Performed By: #### 7225557, 8256279, 18488837, 83630026, 4133064 ####[address] [place], [place] [address]WWR9.7 E12/LNormal4.3-5.9[facility] HospitalComment on above:Performed By: #### 3519029, 6728211, 69690699, 75244092, 8519587 ####[address] [place], [place] [address]LXA1.6 E9/LNormal4.0-11.0[facility] HospitalComment on above:Performed By: #### 5640776, 8922664, 17388347, 51689122, 2810798 ####[facility] [address] [place] [address] CHEMISTRYOrdered By: SYSTEM SYSTEM on 63-64-2309Sloevno [Mass/Vol]4.6 g/dLNormal 3.3 - 5.0 gm/dLRemisol ChemAlbumin/Globulin [Mass ratio]1.4 {ratio}Normal1.1 - 2.2Remisol ChemAlk Phos73 [iU]/bGnwids90 - 98 Int._Unit/LRemisol AdmpMQB48 [iU]/dNormal6 - 46 Int._Unit/LRemisol ChemAnion gap [Moles/Vol]15 mmol/LNormal6 - 16 mEq/LRemisol PkvoHHL60 [iU]/dNormal5 - 43 Int._Unit/LRemisol ChemBili Direct0.1 mg/dLNormal0.0 - 0.4 mg/dLRemisol ChemBili Indirect0.4 mg/dLNormal0.1 - 0.9 mg/dLRemisol ChemBili Total0.5 mg/dLNormal0.0 - 1.1 mg/dLRemisol Chem Calcium [Mass/Vol]9.6 mg/dLNormal8.9 - 11.1 mg/dLRemisol ChemChloride [Moles/Vol]106 mmol/UKzaxuq037 - 111 mmol/LRemisol ChemCO2 [Moles/Vol]21 mmol/L Tddtic86 - 31 mmol/LRemisol ChemCreatinine [Mass/Vol]0.9 mg/dLNormal0.5 - 1.3 mg/dLRemisol FfpnqKYD37 mL/min/1.73 u5Cxnplj>=59mL/min/1.73 v3Pilrfuh Chem Globulin (S) [Mass/Vol]3.3 g/dLNormal1.4 - 4.0 gm/dLRemisol ChemGlucose [Mass/Vol]109 mg/tKTgvqjs25 - 199 mg/dLRemisol ChemPotassium [Moles/Vol]3.6 mmol/LNormal3.5 - 5.3 mmol/LRemisol ChemProtein [Mass/Vol]7.9 g/dLHigh6.0 - 7.8 gm/dLRemisol ChemSodium [Moles/Vol]138 mmol/EQzvtci675 - 145 mmol/LRemisol Chem Urea nitrogen [Mass/Vol]mg/dLLow5 - 21 mg/dLRemisol ChemUrea nitrogen/Creatinine [Mass ratio]4 mg/mgLow10 - 20Remisol ChemCT Abdomen/Pelvis w/o Contraston 16-78-4894BP Abdomen/Pelvis w/o ContrastExam Date/Time: 07/31/2023 17:10 EST Reason for Exam: [...] for diverticulitis. Lymph Nodes: No lymphadenopathy. Report Mesentery/peritoneum/retroperitoneum: No ascites or mass. Vasculature: No abdominal [...] Given? No Oral contrast amount in ml's: 0[facility]aw[facility] HospitalDischarge Instructionson 29-17-4788Ueoqncxio Instructions [id number]#1.00TIFFWooster Community Hospital Clinical Summaryon 78-30-2073LN Clinical Summary [place] [address] ED Clinical Summary Person Information Name: ANTONIA NOYOLA/[facility] Age: 38 Years : 1985 Sex: Female Language: Senegalese PCP: NONE, XXXX Marital Status: Visit Id: [...] 18:03:59 07/31/2023 18:03:59 07/31/2023 18:03:59 ADDRESS: [address] [place] [id number] PHYS DOC NOTES: MEDICAL INFORMATION: Prescriptions Given: New Medications [facility]/pharmacy #[id number], [address], [place] [id number], [phone] acetaminophen-oxycodone (Percocet 5 mg-325 mg oral tablet) 1 [...] up: With: Address: When: Follow-up with your VIDEO SYSTEM REPAIRER at [facility] In 3 days 08/03/2023 Comments: [...] new or worsening symptoms. DIAGNOSIS: Abdominal pain, acuteNormalFisher Chris Medical CenterED Patient Education Note on 17-23-1516HL Patient Education NoteGastroenterology Abdominal Pain, Adult Pain in the abdomen [...] these instructions at home: Medicines ? Take deie-qlc-mevbuky and prescription medicines only as told by [...] your condition for any changes. ? Take vuzt-dqf-bmwnuud and prescription medicines only as told by [...] provider. Document Revised: 07/18/2020 Document Reviewed: 10/08/2019 [employer] Patient Education ? 2022 [employer].[facility] ED Patient Summaryon 91-39-3274FG Patient Summary [place] [address] Patient Discharge Instructions Person Information Name: ANTONIA NOYOLA Age: 38 Years Arrival Date: 07/31/2023 15:33:06 Discharge Diagnosis: Abdominal pain, acute Primary Care Physician: NONE, XXXX Provider Information Primary Provider: Jignesh Dumont DO Advanced Judo Instructor:None The exam and treatment you received in the Emergency Department were for an urgent problem and are not intended as complete care. It is important that you follow up with a doctor, nurse practitioner,or physician?s program assistant for ongoing care. If your symptoms [...] Instructions: With: Address: When: Follow-up with your VIDEO SYSTEM REPAIRER at [facility] In 3 days 08/03/2023 Comments: [...] opioids can be used to help relieve hllagdxb-rm-xpxxnc pain and are often prescribed following a [...] and have fewer risks and side effects. Optionsmay include: ? Pain relievers such as acetaminophen, [...] about any and al (more content not included)...[facility]awas HospitalHEMATOLOGYOrdered By: Fernando Mazariegos on 17-56-1483Gyaxidrxqvtb Ql (Bld) PRESENTInvalid Interpretation CodeRemisol HemeMicrocytePRESENTInvalid Interpretation CodeRemisol HemeRBC morphology finding Nom (Bld)SEE MORPHOLOGY Invalid Interpretation CodeRemisol HemeHEMATOLOGYOrdered By: SYSTEM SYSTEM on 93-15-4277Qlhceaeu Absolute0.1 E9/LNormal0.0 - 0.2 E9/LRemisol HemeBasophils/100 WBC (Bld)1.1 %Normal0.0 - 2.0 %Remisol HemeEos Absolute0.0 E9/LNormal0.0 - 0.5 E9/LRemisol HemeEosinophils/100 WBC (Bld)0.2 %Normal0.0 - 8.0 %Remisol Heme Erythrocyte distribution width (RBC) [Ratio]16.5 %High10.9 - 14.2 %Remisol Heme Hematocrit (Bld) [Volume fraction]36.0 %Kwuqim62.0 - 46.0 %Remisol Heme Hemoglobin (Bld) [Mass/Vol]11.4 g/dLLow12.0 - 16.0 gm/dLRemisol HemeLymph Absolute2.2 E9/LNormal1.0 - 4.0 E9/LRemisol HemeLymphocytes/100 WBC (Bld)25.3 % Lkrjug40.0 - 50.0 %Remisol HemeMCH (RBC) [Entitic mass]24.0 pgLow27.0 - 34.0 pg Remisol HemeMCHC (RBC) [Mass/Vol]31.9 g/wAAjdkiv91.4 - 36.0 gm/dLRemisol HemeMCV (RBC) [Entitic vol]75.2 fLLow80.0 - 100.0 fLRemisol HemeMono Absolute0.5 E9/L Normal0.2 - 1.0 E9/LRemisol HemeMonocytes/100 WBC (Bld)5.4 %Normal4.0 - 14.0 % Remisol HemeNeutro Absolute5.9 E9/LNormal2.0 - 7.5 E9/LRemisol HemeNeutro Auto 68.0 %Dyzvzt52.0 - 75.0 %Remisol IdnnGbnyjnxk150.0 E9/QHavy669.0 - 500.0 E9/L Remisol HemePlatelet mean volume (Bld) [Entitic vol]7.4 fLNormal6.4 - 10.8 fL Remisol HemeRBC4.7 E12/LNormal4.3 - 5.9 E12/LRemisol HemeWBC8.6 E9/LNormal4.0 - 11.0 E9/LRemisol HemeHep Func Panelon 00-27-6561Qnqpnuv [Mass/Vol]4.6 g/dLNormal 3.3-5.0[facility] HospitalComment on above:Performed By: #### 0446564, 2945656, 40073036, 62650583, 9091765 ####[facility] [address] [place], [place] [address]Jgtgqvu/Globulin [Mass ratio]1.4 {ratio} Normal1.1-2.2FWVUMedicine Barnesville HospitalComment on above:Performed By: #### 9172823, 2660917, 17526921, 13983094, 0049688 ####[facility] [address] [place], [place] [address]Ead Phos73 Int._Unit/RMvfedh76-05 [facility] HospitalComment on above:Performed By: #### 3179244, 5721856, 89402207, 92629181, 1731916 ####[address] [address]OZI26 Int._Unit/LNormal6-46[facility] HospitalComment on above:Performed By: #### 0028053, 6499263, 31367957, 67984832, 0718780 ####[address] [address]TBB44 Int._Unit/LNormal5-43[facility] HospitalComment on above: Performed By: #### 1790796, 2485011, 08770969, 51202165, 8463516 ####[address] [address]Osxl Direct0.1 mg/dLNormal0.0-0.4FWVUMedicine Barnesville HospitalComment on above:Performed By: #### 6364680, 7126188, 15534042, 00988889, 0237640 ####[address] [address]Hutj Indirect0.4 mg/dLNormal0.1-0.9 [facility] HospitalComment on above:Performed By: #### 3253662, 1484480, 19503726, 94047241, 3567276 ####[address] [address]Uasq Total0.5 mg/dLNormal0.0-1.1FWVUMedicine Barnesville HospitalComment on above:Performed By: #### 8901341, 3627853, 30185866, 59786960, 3595218 ####[address] [address]Emfyerev (S) [Mass/Vol]3.3 g/dLNormal1.4-4.0[facility] HospitalComment on above:Performed By: #### 0744092, 0154053, 87277178, 11581521, 0925398 ####Ordaz [facility] [address] [place] [address]Uhgwqaf [Mass/Vol]7.9 g/dLHigh6.0-7.8[facility] HospitalComment on above:Performed By: #### 9012726, 6606797, 12475752, 62447922, 6760904 ####[address] [address]Eqoqrck Recordon 57-90-8497Xneaugr Record [id number]#1.00TIFFNormalMarion HospitalEROLOGYOrdered By: Felicity George on 55-76-9635Rwob HCG ( test) Ql Negative (07/31/23 4:20 PM)[facility] Man SeroUA With Cult Reflexon 35-10-7254Ctaeryhk LM Ql (Urine sed)TRACENormalTraceSheltering Arms HospitalComment on above: Performed By: #### 38075116 ####[address] [address]Gvcimuclx Ql (U)NegativeNormalNegativeSheltering Arms HospitalComment on above:Performed By: #### 49165857 ####[address] [address]Minqdfv (U)CLEARNormal ClearSheltering Arms HospitalComment on above:Performed By: #### 59558792 ####[address] [address]Pdwlt (U)YELLOWNormalYellowSheltering Arms HospitalComment on above:Performed By: #### 02289924 ####[address] [address]Dotkotmsud cells.squamous LM.HPF (Urine sed) [#/Area]8-6Jryztc2-0Acmbkh [facility] Medical CenterComment on above:Performed By: #### 67375150 ####[address] [address]Rzfsonc Test strip (U) [Mass/Vol]NegativeNormalNegativeSheltering Arms HospitalComment on above:Performed By: #### 97469497 ####[address] [address]Qfjsqoxgoi Ql (U)NegativeNormalNegativeSheltering Arms HospitalComment on above:Performed By: #### 46549117 ####[address] [address]Dbzwkvn (U) [Mass/Vol] 1+AbnormalNegativeSheltering Arms HospitalComment on above:Performed By: #### 25578781 ####[address] [address]Puqjria.plasma/[place].RBC (Bld) [Mass ratio]9-9Vffogs4-5GhgobvWVUMedicine Barnesville HospitalComment on above:Performed By: #### 75829714 ####[address] [address]Vlygn Ql (Urine sed) TRACENormalSheltering Arms HospitalComment on above:Performed By: #### 51258477 ####[address] [address]Arkcnyj Ql (U)NegativeNormalNegativeSheltering Arms HospitalComment on above:Performed By: #### 45432781 ####[address] [address]oX (U)8.5 [pH]Invalid Interpretation Code5.0-9.0 [facility] HospitalComment on above:Performed By: #### 98166115 ####[address] [address] Protein (U) [Mass/Vol]NegativeNormalNegativeSheltering Arms HospitalComment on above:Performed By: #### 55812588 ####[address] [address]Lrxufzsz gravity (U) [Rel density] 1.015Invalid Interpretation Code1.005-1.030[facility] HospitalComment on above:Performed By: #### 56636571 ####[facility] [address] [place], [place] [address]Mykz of Urine collection methodClean CatchNormal [facility] HospitalComment on above:Performed By: #### 95835666 ####[address] [place] [address] Urobilinogen Qn (U)0.2 {Ivone'U}/dLNormal0.0-1.0[facility] Comment on above:Performed By: #### 45875475 ####[address] [address]APM Auto Ql (U)NegativeNormalNegative [facility] HospitalComment on above:Performed By: #### 43447825 ####[address] [address]DWF LM.HPF (Urine sed) [#/Area]0-3Olomrp1-8YrrhasWVUMedicine Barnesville HospitalComment on above:Performed By: #### 72892618 ####[address] [address]EPQUVCJLIIIieqmsr By: Felicity George on 07-31-2023 Bacteria LM Ql (Urine sed)Trace /HPFNormalTrace/HPFFAIRFA[facility] UA Auto SSBilirubin Ql (U)Negative (07/31/23 4:30 PM)NormalNegativeFAIRFAX COMM[facility]ITY [facility] UA Auto SSClarity (U)Clear (07/31/23 4:30 PM)NormalClearFOKLAHOMA STATE [facility] UA Auto SSColor (U)Yellow (07/31/23 4:30 PM)NormalYellowFAIRFAX COMMUNITY [facility]OSP[facility] UA Auto SSEpithelial cells.squamous LM.HPF (Urine sed) [#/Area]0-2 /HPFNormal0-2/HPFFAIRFAX [facility]ITY [facility] UA Auto SSGlucose Test strip (U) [Mass/Vol]Negative (07/31/23 4:30 PM)NormalNegativeFAIRFAX COMMUNITY [facility]OSP[facility] UA Auto SSHemoglobin Ql (U)Negative (07/31/23 4:30 PM)NormalNegativeFAIRFAX COMM[facility]ITY [facility] UA Auto SSKetones (U) [Mass/Vol]1+ *ABN* (07/31/23 4:30 PM)Invalid Interpretation CodeNegativeFAIRFAX COMMUNITY HOSPITAL [facility] UA Auto SS [place].plasma/[place].RBC (Bld) [Mass ratio]0-3 /HPFNormal0-3/HPFFAIRFAX [facility] UA Auto SSMucus Ql (Urine sed)Trace (07/31/23 4:30 PM)NormalFAIRFAX COMMUNITY [facility]OSPITAL [facility] UA Auto SSNitrite Ql (U)Negative (07/31/23 4:30 PM)NormalNegativeFAIRFAX COMMUNITY [facility]OS[facility]ITAL [facility] UA Auto SSpH (U)8.5 *NA* (07/31/23 4:30 PM)Invalid Interpretation Code5.0 - 9.0[facility] UA Auto SSProtein (U) [Mass/Vol]Negative (07/31/23 4:30 PM)NormalNegativeFAIRFAX COMM[facility]ITY [facility] UA Auto SSSpecific gravity (U) [Rel density] 1.015 *NA* (07/31/23 4:30 PM)Invalid Interpretation Code1.005 - 1.030FA[facility] UA Auto SSUA Spec DescClean Catch (07/31/23 4:30 PM)NormalFAIRFAX COMMUNITY HOSPITAL – [facility] UA Auto SSUrobilinogen Qn (U)0.6014493 {Ivone'U}/dLNormal0.0 - 1.0 EU/dLFAIRFAX COMMUNITY HOSPITAL – [facility] UA Auto SSWBC Auto Ql (U)Negative (07/31/23 4:30 PM)NormalNegativeFAIRFAX COMMUNITY [facility]OSPITAL [facility] UA Auto SSWBC LM.HPF (Urine sed) [#/Area]0-5 /HPFNormal0-5/HPFFAIRFAX COMMUNITY [facility]OS[facility] UA Auto SSeGFRon 58-11-9203pFAN85 mL/min/1.73 w6Fudoeu >=59Fisher [facility] Medical CenterComment on above:Order Comment: Order added by Discern Expert.Performed By: #### 2580767, 7047483, 75042231, 90153808, 8171823 ####Orlin [facility] [address] [place] [place], [place] [address]RF NOTEon 75-49-8737ZS NOTEHNO ID: [id number] Author: DENNIS CAMARGO RN Service: ? Author Type: Registered Nurse Type: ED Notes Filed: 06/22/2023 22:17 Note Text: Patient given verbal and written D/C instructions. Medications and follow up care discussed. Instructed to return to ED if conditions and symptoms persist or worsen. All questions addressed and answered pt verbalized understanding. [facility] goel noted.NormalLutheran HospitalHAV IgM Ser Qlon 80-89-2326RDB IgM Ql (S)NegativeNormalNegativeLutheran HospitalComment on above: Order Comment: Specimen Type: BLOOD SPECIMENOrdering Facility: [facility] Address:[address] [place], [place] [address]Result Comment: No evidence of recent infection with Hepatitis A virus.Performed By: #### 66200-3, 53, ####[facility] LABCLIA [id number] [address] [place] AMERICAHBV core IgM Ser Qlon 43-20-5430JXF core IgM Ql (S)NegativeNormalNegativeBuddhism HospitalComment on above:Order Comment: Specimen Type: BLOOD SPECIMENOrdering Facility: [facility] Address:[address] [place], [place] [address]Result Comment: No evidence of recent infection with Hepatitis B virus. Should recent infection be suspected, repeat testing may be considered 3-4 weeks after this draw.Performed By: #### 87155-9, 53, ####[facility] LABCLIA [id number][place] [address] [place] HBV surface Ag Ser Qlon 57-73-0827PUR surface Ag Ql (S)NegativeNormalNegative Buddhism HospitalComment on above:Order Comment: Specimen Type: BLOOD SPECIMENOrdering Facility: [facility] Address:[address] [place], [place] [address]Performed By: #### 15912-4, 3, ####[facility] LABCLIA [id number] [address] [place] AMERICAHCV RNA SerPl SENAIT+probe-aCncon 97-05-2786XEA RNA SENAIT+probe QnNot detectedNormalHCV RNA not detected by PCR.[facility] Comment on above:Order Comment: Specimen Type: BLOOD SPECIMEN Ordering Facility: [facility] Address: [address] [place], [place] [address]Performed By: #### 49833-8 #### [facility] CLIA [id number] [facility] [id number] [place] [address] 06-22-2023 ALLIED HEALTHHNO ID: [id number] Author: SELENA AMADOR RT(R) Service: Radiology Author [...] Noyola DATE: June 22, 2023 TIME: 7:46 PMNormalMemorial Hospital of South Bend ID: [id number] Author: DELLA BEST RDMS, RVT Service: Radiology Author Type: Glass Tube Bender Type: Allied Health Filed: 06/22/2023 18:55 Note [...] Best RDMS, RVT June 22, 2023 6:55 PMNormalLutSelect Medical Specialty Hospital - [facility]ron W Auto Differential panel (Bld)on 01-29-3247Ecvxecphl (Bld) [#/Vol]0.03 10*3/uLNormal<0.11Lutheran HospitalComment on above:Order Comment: Specimen Type: BLOOD SPECIMENOrdering Facility: [facility] Address:[address] [place], [place] [address]Performed By: #### 81699-9 ####[facility] LABORATORYCLIA [id number] [place] [address] [place] AMERICABasophils/100 WBC (Bld) 0.6 %NormalLutbanneran HospitalComment on above:Order Comment: Specimen Type: BLOOD SPECIMENOrdering Facility: [facility] Address:[address] [place], [place] [address]Performed By: #### 71133-6 ####[facility] LABORATORYCLIA [id number] [address] [place] [address] [place] Differential cell count method Nom (Bld)AutoNormalLutheran HospitalComment on above:Order Comment: Specimen Type: BLOOD SPECIMENOrdering Facility: [facility] Address:[address] [place], [place] [address]Performed By: #### 33085-7 ####[facility] LABORATORYCLIA [id number] [place] [address] [place] AMERICAEosinophils (Bld) [#/Vol]0.03 10*3/uLNormal<0.46 Buddhism HospitalComment on above:Order Comment: Specimen Type: BLOOD SPECIMENOrdering Facility: [facility] Address:[address] [place], [place] [address]Performed By: #### 15253-3 ####[facility] LABORATORYCLIA [id number] [place] [address] [place] Eosinophils/100 WBC (Bld)0.6 %NormalBuddhism HospitalComment on above:Order Comment: Specimen Type: BLOOD SPECIMENOrdering Facility: [facility] Address:[address] [place], [place] [address]Performed By: #### 14192- 8 ####[facility] LABORATORYCLIA [id number] [place] [address] [place] AMERICAErythrocyte distribution width (RBC) [Ratio]16.5 %High 11.5-15.0Lutohio state university wexner medical center HospitalComment on above:Order Comment: Specimen Type: BLOOD SPECIMENOrdering Facility: [facility] Address:[address] [place], [place] [address]Performed By: #### 74131-9 ####[facility] LABORATORYCLIA [id number] [place] [address] [place] Hematocrit (Bld) [Volume fraction]37.7 %Jcahom59.0-46.0Luther HospitalComment on above:Order Comment: Specimen Type: BLOOD SPECIMENOrdering Facility: [facility] Address:[address] [place] [address] Performed By: #### 21033-6 ####[facility] LABORATORYCLIA [id number] [place] [id number] [place] OF AMERICAHemoglobin (Bld) [Mass/Vol] 11.7 g/pBOtwfmi92.5-15.5Buddhism HospitalComment on above:Order Comment: Specimen Type: BLOOD SPECIMENOrdering Facility: [facility] Address:[address] [place], [place] [address]Performed By: #### 15355-2 ####[facility] LABORATORYCLIA [id number] [place] [address] [place] AMERICAImmature granulocytes (Bld) [#/Vol]10*3/uLNormal<0.10 Buddhism HospitalComment on above:Order Comment: Specimen Type: BLOOD SPECIMENOrdering Facility: [facility] Address:[address] [place], [place] [address]Performed By: #### 35099-6 ####[facility] LABORATORYCLIA [id number] [place] [address] [place] AMERICAImmature granulocytes/100 WBC (Bld)0.4 %NormalBuddhism HospitalComment on above:Order Comment: Specimen Type: BLOOD SPECIMENOrdering Facility: [facility] Address:[address] [place], [place] [address]Performed By: #### 03383- 8 ####[facility] LABORATORYCLIA [id number] [place] [address] [place] AMERICALymphocytes (Bld) [#/Vol]1.87 10*3/uLNormal1.00-4.00 Buddhism HospitalComment on above:Order Comment: Specimen Type: BLOOD SPECIMENOrdering Facility: [facility] Address:[address] [place], [place] [address]Performed By: #### 35514-0 ####[facility] LABORATORYCLIA [id number] [address] [place] [address] STATES OF [facility] Lymphocytes/100 WBC (Bld)34.4 %NormalLutbanneran HospitalComment on above:Order Comment: Specimen Type: BLOOD SPECIMENOrdering Facility: [facility] Address:[address] [place], [place] [address]Performed By: #### 83280- 8 ####[facility]OISM LABORATORYCLIA [id number] [address] [place] [address] (RBC) [Entitic mass]24.5 pgLow26.0-34.0Lutheran HospitalComment on above:Order Comment: Specimen Type: BLOOD SPECIMENOrdering Facility: [facility] Address:[address] [place], [place] [address]Performed By: #### 05443-3 ####TAOISM LABORATORYCLIA [id number] [address] [facility] (RBC) [Mass/Vol]31.0 g/jPJybfwk19.5-36.0Lutheran HospitalComment on above:Order Comment: Specimen Type: BLOOD SPECIMENOrdering Facility: [facility] Address:[address] [place], [place] [address]Performed By: #### 54986-3 ####TAOISM LABORATORYCLIA [id number] [address] (RBC) [Entitic vol]79.0 fLLow80.0-100.0Lutheran HospitalComment on above:Order Comment: Specimen Type: BLOOD SPECIMENOrdering Facility: [facility] Address:[address] [place], [place] [address]Performed By: #### 68356-4 ####TAOISM LABORATORYCLIA [id number] [address] [place], [place] [address]Monocytes (Bld) [#/Vol]0.25 10*3/uLNormal<0.87 Buddhism HospitalComment on above:Order Comment: Specimen Type: BLOOD SPECIMENOrdering Facility: [facility] Address:[address] [place], [place] [address]Performed By: #### 64896-8 ####TAOISM LABORATORYCLIA [id number] [address] [place] [address] [place] Monocytes/100 WBC (Bld)4.6 %NormalLutheran HospitalComment on above:Order Comment: Specimen Type: BLOOD SPECIMENOrdering Facility: [facility] Address:[address] [place], [place] [address]Performed By: #### 73085- 8 ####TAOISM LABORATORYCLIA [id number] [address] [place] [address] [place] AMERICANeutrophils (Bld) [#/Vol]3.23 10*3/uLNormal1.45-7.50 Buddhism HospitalComment on above:Order Comment: Specimen Type: BLOOD SPECIMENOrdering Facility: [facility] Address:[address] [place], [place] [address]Performed By: #### 01005-9 ####TAOISM LABORATORYCLIA [id number] [place] [address] [place] Neutrophils/100 WBC (Bld)59.4 %NormalLutheran HospitalComment on above:Order Comment: Specimen Type: BLOOD SPECIMENOrdering Facility: [facility] Address:[address] [place], [place] [address]Performed By: #### 24537- 8 ####TAOISM LABORATORYCLIA [id number] [place] [address] [place] AMERICANucleated RBC (Bld) [#/Vol]10*3/uLNormal<0.01Lutheran HospitalComment on above:Order Comment: Specimen Type: BLOOD SPECIMENOrdering Facility: [facility] Address:[address] [place], [place] [address]Performed By: #### 83645-3 ####TAOISM LABORATORYCLIA [id number] [place] [address] [place] AMERICANucleated RBC/100 WBC (Bld) [Ratio]0.0 /100 WBCNormalLutheran HospitalComment on above:Order Comment: Specimen Type: BLOOD SPECIMENOrdering Facility: [facility] Address:[address] [place], [place] [address]Performed By: #### 44904-6 ####TAOISM LABORATORYCLIA [id number] [address] [place], [place] [address] [place] OF AMERICAPlatelet mean volume (Bld) [Entitic vol]9.4 fLNormal 9.0-12.7Lutheran HospitalComment on above:Order Comment: Specimen Type: BLOOD SPECIMENOrdering Facility: [facility] Address:[address] [place], [place] [address]Performed By: #### 02000-8 ####TAOISM LABORATORYCLIA [id number] [address] [place] [address] [place] Platelets (Bld) [#/Vol]486 10*3/rLWgdx125-474Dniwzadq HospitalComment on above: Order Comment: Specimen Type: BLOOD SPECIMENOrdering Facility: [facility] Address:[address] [place], [place] [address]Performed By: #### 66737- 8 ####TAOISM LABORATORYCLIA [id number] [address] [place] [address] [place] AMERICARBC (Bld) [#/Vol]4.77 10*6/uLNormal3.90-5.20Lutbanneran HospitalComment on above:Order Comment: Specimen Type: BLOOD SPECIMENOrdering Facility: [facility] Address:[address] [place], [place] [address]Performed By: #### 93619-8 ####TAOISM LABORATORYCLIA [id number] [address] [place], [place] [address] [place] OF AMERICAWBC (Bld) [#/Vol]5.43 10*3/uLNormal3.70-11.00Lutohio state university [facility]ner [facility] HospitalComment on above:Order Comment: Specimen Type: BLOOD SPECIMENOrdering Facility: [facility] Address:[address] [place], [place] [address]Performed By: #### 85513-9 ####TAOISM LABORATORYCLIA [id number] [address] [place], [place] [address] [place] OF AMERICACT ABD/PEL W IVCONon 86-36-3380XF ABD/PEL W IVCON* * *Final Report* * * DATE OF [...] Tissues: No significant finding. Lower thorax: Unremarkable. Goat Farmer (topogram) images: Unremarkable. IMPRESSION: No acute intra-abdominal or pelvic process identified. Customs Manager: ANTONIO Transcribe Date/Time: Jun 22 2023 8:25P Dictated by : CHAD SCHILLING MD This examination was interpreted and the report reviewed and electronically signed by: CHAD SCHILLING MD on Jun 22 2023 8:29PM EST [id number] state university wexner medical center HospitalComprehensive metabolic 2000 panel on 75-03-9568Qewdrkm [Mass/Vol]4.8 g/dLNormal3.9-4.9Lutohio state university [facility] HospitalComment on above:Order Comment: Specimen Type: BLOOD SPECIMENOrdering Facility: [facility] Address:[address] [place], [place] [address]Performed By: #### 38386-0, 3040-3, 73882-1 ####TAOISM LABORATORYCLIA [id number] [address] [place], [place] [address] [place] OF AMERICAALP [Catalytic activity/Vol] 108 U/VBwlobp98-851Esdguejd HospitalComment on above:Order Comment: Specimen Type: BLOOD SPECIMENOrdering Facility: [facility] Address:[address] [place], [place] [address]Performed By: #### 98289-8, 3040-3, 67132-3 ####TAOISM LABORATORYCLIA [id number] [address] [place], [place] [address] [place] AMERICAALT [Catalytic activity/Vol]63 U/LHigh7-38Lutheran HospitalComment on above:Order Comment: Specimen Type: BLOOD SPECIMENOrdering Facility: [facility] Address:[address] [place], [place] [address]Performed By: #### 19815-5, 3040-3, ####TAOISM LABORATORYCLIA [id number] [place] [address] [place] AMERICAAnion gap [Moles/Vol]13 mmol/LNormal9-18Lutheran HospitalComment on above:Order Comment: Specimen Type: BLOOD SPECIMENOrdering Facility: [facility] Address:[address] [place], [place] [address]Performed By: #### 34106- 8, 3040-3, ####TAOISM LABORATORYCLIA [id number] [place] [address] [place] AMERICAAST [Catalytic activity/Vol]109 U/L Uugy11-96Nmxdnpyp HospitalComment on above:Order Comment: Specimen Type: BLOOD SPECIMENOrdering Facility: [facility] Address:[address] [place], [place] [address]Performed By: #### 36595-7, 3040-3, ####TAOISM LABORATORYCLIA [id number] [place] [address] [place] AMERICABilirubin [Mass/Vol]0.4 mg/dLNormal0.2-1.3Lutheran HospitalComment on above:Order Comment: Specimen Type: BLOOD SPECIMENOrdering Facility: [facility] Address:[address] [place], [place] [address]Performed By: #### 85127-0, 3040-3, ####TAOISM LABORATORYCLIA [id number] [place] [address] [place] AMERICACalcium [Mass/Vol]9.6 mg/dL Normal8.5-10.2Luthera HospitalComment on above:Order Comment: Specimen Type: BLOOD SPECIMENOrdering Facility: [facility] Address:[address] [place], [place] [address]Performed By: #### 62395-3, 0-3, ####TAOISM LABORATORYCLIA [id number] [address] [place] [address] [place] AMERICAChloride [Moles/Vol]102 mmol/NIhihfi80-160Jzavjovp HospitalComment on above:Order Comment: Specimen Type: BLOOD SPECIMENOrdering Facility: [facility] Address:[address] [place], [place] [address]Performed By: #### 87217-8, 0-3, ####TAOISM LABORATORYCLIA [id number] [place] [address] [place] AMERICACO2 [Moles/Vol]23 mmol/KBmopqq13-89Trcuwkcc HospitalComment on above:Order Comment: Specimen Type: BLOOD SPECIMENOrdering Facility: [facility] Address:[address] [place], [place] [address]Performed By: #### 64693-7, 3040-3, ####TAOISM LABORATORYCLIA [id number] [place] [address] [place] AMERICACreatinine [Mass/Vol]0.64 mg/dLNormal0.58-0.96 Buddhism HospitalComment on above:Order Comment: Specimen Type: BLOOD SPECIMENOrdering Facility: [facility] Address:[address] [place], [place] [address]Performed By: #### 28594-5, 3040-3, 23303-0 ####TAOISM LABORATORYCLIA [id number] [place] [address] [place] AMERICACreatinine and Glomerular filtration rate.predicted panel (S/P/Bld)118 mL/min/1.73m???Normal>=60Wvumedicine Harrison Community HospitalComment on above:Order Comment: Specimen Type: BLOOD SPECIMENOrdering Facility: [facility] Address:[address] [place], [place] [address]Result Comment: Estimated Glomerular Filtration Rate (eGFR) is calculated using the 2020 CKD-EPI creatinine equation. This equation utilizes serum creatinine, sex, and age as parameters. The creatinine assay has traceable calibration to isotope dilution-mass spectrometry. Refer to KDIGO guidelines for clinical interpretation. In patients with unstable renal function, e.g. those with acute kidney injury, the eGFR may not accurately reflect actual GFR.Performed By: #### 86203-6, 3040-3, ####TAOISM LABORATORYCLIA [id number] [place] [address] [place] OF AMERICAGlucose [Mass/Vol]102 mg/wHNvya61-14Zlupt[address] Comment on above:Order Comment: Specimen Type: BLOOD SPECIMENOrdering Facility: [facility] Address:[address] [place], [place] [address]Result Comment: The [place] Diabetes Association (ADA) provides guidance for cutoff [...] Standards of Medical Care in Diabetes 2016, [employer]. Diabetes Care. 2016.39(Suppl 1).Performed By: #### 85125-5, 3040-3, ####TAOISM LABORATORYCLIA [id number] [place] [address] [place] AMERICAPotassium [Moles/Vol]3.8 mmol/LNormal3.7-5.1 Buddhism HospitalComment on above:Order Comment: Specimen Type: BLOOD SPECIMENOrdering Facility: [facility] Address:[address] [place], [place] [address]Performed By: #### 76854-3, 3040-3, ####TAOISM LABORATORYCLIA [id number] [place] [address] [place] AMERICAProtein [Mass/Vol]8.2 g/dLHigh6.3-8.0Buddhism HospitalComment on above: Order Comment: Specimen Type: BLOOD SPECIMENOrdering Facility: [facility] Address:[address] [place], [place] [address]Performed By: #### 51219- 8, 3039-3, ####TAOISM LABORATORYCLIA [id number] [place] [address] [place] AMERICASodium [Moles/Vol]138 mmol/LNormal 136-144Buddhism HospitalComment on above:Order Comment: Specimen Type: BLOOD SPECIMENOrdering Facility: [facility] Address:[address] [place], [place] [address]Performed By: #### 39659-5, 3039-3, ####TAOISM LABORATORYCLIA [id number] [place] [address] [place] AMERICAUrea nitrogen [Mass/Vol]8 mg/dLNormal7-21Buddhism HospitalComment on above:Order Comment: Specimen Type: BLOOD SPECIMENOrdering Facility: [facility] Address:[address] [place], [place] [address]Performed By: #### 59278-0, 3040-3, ####TAOISM LABORATORYCLIA [id number] [place] [id number] [place] OF AMERICAECG COMPLETEon 01-30-8256KQU COMPLETEVentricular Rate : 105 BPM Atrial Rate : 103 BPM P-R Interval : 152 ms QRS Duration : 77 ms Q-T Interval : 324 ms QTC Calculation(Bazett) : 429 ms Calculated P [place] : 42 degrees Calculated R [place] : 56 degrees Calculated T [place] : 49 degrees Sinus tachycardia Low voltage, precordial leads Anteroseptal infarct, old Abnormal ECG no stemi 181 Confirmed by MD SEN BRENT ([id number]), publication editor STEPHENIE ERIC (1940) on 06/23/2023 12:09:36 PM NAME : ANTONIA NOYOLA PID : [id number] : 1985 Gender : Female Race : ORD : [id number] Procedure Date : Jun 22 2023 18:10:13 Edit Date : Jun 23 2023 12:09:40 Diagnosis: Sinus tachycardia Low voltage, precordial leads Anteroseptal infarct, old Abnormal ECG no stemi 1814 Confirmed by MD SEN BRENT ([id number]), publication editor STEPHENIE ERIC (1940) on 06/23/2023 12:09:36 PM Test Reason : Tachycardia Location : 502 : [facility] ED Overread By : MD SEN BRENT Edited By : STEPHENIE ERIC Referred By : , Acquired by : [facility]IDJ.W. [facility] NOTEon 37-06-4224EJ NOTEHNO ID: [id number] Author: DENNIS CAMARGO RN Service: ? Author Type: Registered Nurse Type: ED Notes Filed: 06/22/2023 21:56 Note Text: Assumed care of pt at this time and received report from previous RN.[facility] NOTEHNO ID: [id number] Author: MATILDE DAVIS RN Service: Nursing Author Type: Registered Nurse Type: ED Notes Filed: 06/22/2023 17:38 Note Text: Pt presents with LLQ pain that radiates to back that began this morning but worsened one hour prior to arrival. Denies urinary complaints.[facility] HospitalED PROV NOTEon 67-36-1256SL PROV NOTEHNO ID: [id number] Author: EVGENY SEN MD Service: Emergency Medicine [...] with some relief. 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 Musculoskeletal: Negative. Skin: Negative. Neurological: Negative. Psychiatric/Behavioral: Negative. All other systems reviewed and are [...] Result Value Ref Range (more content not included)...NormalLutheran HospitalED Triage Noteon 36-18-3050XY Triage NoteHNO ID: [id number] Author: TABBY LUCIANO PA-C Service: ? Author Type: Physician Mis Specialist Type: ED Triage Notes Filed: 06/22/2023 17:43 [...] expedite care by the treating team. SIGNATURE: ARLEEN Uribe-CNNewark HospitalHCG Preg Ur Qlon 60-86-7433HVY ( test) Ql (U)NegativeNormalNegativeWvumedicine Harrison Community Hospital Comment on above:Order Comment: Specimen Type: URINE SPECIMENOrdering Facility: [facility] Address:[address] [place], [place] [address]Result Comment: This test is intended to aid in the early detection of . Very dilute urinesamples, as indicated by a low specific gravity, may not contain used equipment sales representative levels of hCG. Thistest detects intact hCG only. This test does [...] for interference by human anti-mouse antibodies (HAMA) inthe specimen. The test provides a presumptive diagnosis for .Performed By: #### 2106- 3 ####TAOISM LABORATORYCLIA [id number] [place] [address] [place] AMERICALipase SerPl-cCncon 21-21-2140Upiqvk [Catalytic activity/Vol]34 U/YNnfhmx26-22Mfbmhmmp HospitalComment on above:Order Comment: Specimen Type: BLOOD SPECIMENOrdering Facility: [facility] Address:[address] [place], [place] [address]Performed By: #### 81980-6, 3040-3, 47194-0 ####TAOISM LABORATORYIA [id number] [place] [id number] [place] AMERICAMagnesium SerPl-mCncon 50-84-4194Ybjdppeeb [Mass/Vol]2.2 mg/dLNormal1.7-2.3LutThe Surgical Hospital at SouthwoodsComment on above:Order Comment: Specimen Type: BLOOD SPECIMENOrdering Facility: [facility] Address:[address] [place], [place] [address]Performed By: #### 29193-2, 3040-3, 64485-5 ####TAOISM EVERGREENHEALTHIA [id number] [place] [id number] [place] AMERICAUS DOPPLER COMPLETEon 12-97-9967ZF DOPPLER COMPLETE* * *Final Report* * * DATE OF [...] and stored in a permanent archive. MQ: [facility]_2021 COMPARISON: None RESULT: Uterus: -Size: 8.1 [...] Normal sonographic appearance of the female pelvis. Customs Manager: ANTONIO Transcribe Date/Time: Jun 22 2023 7:44P Dictated by : Vasu BURNS MD This examination was interpreted and the report reviewed and electronically signed by: Vasu BURNS MD on Jun 22 2023 7:48PM EST [id number] Garfield Memorial Hospital FEMALE PELVIS TRANSABD LTDon 26-41-3367FA FEMALE PELVIS TRANSABD LTD* * *Final Report* * * DATE OF [...] and stored in a permanent archive. MQ: [facility]_2021 COMPARISON: None RESULT: Uterus: -Size: 8.1 [...] Normal sonographic appearance of the female pelvis. Customs Manager: ANTONIO Transcribe Date/Time: Jun 22 2023 7:44P Dictated by : Vasu BURNS MD This examination was interpreted and the report reviewed and electronically signed by: Vasu BURNS MD on Jun 22 2023 7:48PM EST [id number] HospitalUS FEMALE PELVIS TRANSVAGon 50-33-4502YU FEMALE PELVIS TRANSVAG* * *Final Report* * * DATE OF [...] Normal sonographic appearance of the female pelvis. Customs Manager: PSCB Transcribe Date/Time: Jun 22 2023 7:44P Dictated by : Vasu BURNS MD This examination was interpreted and the report reviewed and electronically signed by: Vasu BURNS MD on Jun 22 2023 7:48PM EST [id number]n HospitalUrinalysis complete panel (U)on 60-44-5713Ositibwo LM.HPF (Urine sed) [#/Area]FewAbnormalNone SeenBuddhism HospitalComment on above:Order Comment: Specimen Type: URINE SPECIMENOrdering Facility: [facility] Address:[address] [place], [place] [address]Performed By: #### 14737-5 ####TAOISM LABORATORYCLIA [id number] [address] [place], [place] [address] [place] AMERICABilirubin Ql (U)Negative NormalNegativeLutheran HospitalComment on above:Order Comment: Specimen Type: URINE SPECIMENOrdering Facility: [facility] Address:[address] [place], [place] [address]Performed By: #### 67705-0 ####TAOISM LABORATORYCLIA [id number] [address] [place], [place] [address] [place] AMERICAClarity (Unsp spec)ClearNormalClearLutheran HospitalComment on above:Order Comment: Specimen Type: URINE SPECIMENOrdering Facility: [facility] Address:[address] [place], [place] [address]Performed By: #### 16967-7 ####TAOISM LABORATORYCLIA [id number] [place] [address] [place] AMERICAColor (U)YellowNormalYellowLutheran HospitalComment on above:Order Comment: Specimen Type: URINE SPECIMENOrdering Facility: [facility] Address:[address] [place], [place] [address]Performed By: #### 86155-3 ####TAOISM LABORATORYCLIA [id number] [place] [id number] [place] AMERICAEpithelial cells LM.HPF (Urine sed) [#/Area]Few NormalLutheran HospitalComment on above:Order Comment: Specimen Type: URINE SPECIMENOrdering Facility: [facility] Address:[address] [place], [place] [address]Performed By: #### 84182-3 ####TAOISM LABORATORYCLIA [id number] [place] [id number] [place] AMERICAGlucose Test strip (U) [Mass/Vol]NegativeNormalNegativeLutheran HospitalComment on above:Order Comment: Specimen Type: URINE SPECIMENOrdering Facility: [facility] Address:[address] [place], [place] [address]Performed By: #### 33001-6 ####TAOISM LABORATORYCLIA [id number] [address] [place] [address] [place] AMERICAHemoglobin Ql (U)NegativeNormalNegativeLutheran HospitalComment on above:Order Comment: Specimen Type: URINE SPECIMENOrdering Facility: [facility] Address:[address] [place], [place] [address]Performed By: #### 76951-6 ####TAOISM LABORATORYCLIA [id number] [place] [address] [place] PROMEDICA MEMORIAL HOSPITALKetones Ql (U)Trace AbnormalNegativeLutheran HospitalComment on above:Order Comment: Specimen Type: URINE SPECIMENOrdering Facility: [facility] Address:[address] [place], [place] [address]Performed By: #### 86085-4 ####TAOISM LABORATORYCLIA [id number] [place] [address] [place] Leukocyte esterase Test strip Ql (U)NegativeNormalNegativeLutheran Hospital Comment on above:Order Comment: Specimen Type: URINE SPECIMENOrdering Facility: [facility] Address:[address] [place] [address] Performed By: #### 74883-0 ####TAOISM LABORATORYCLIA [id number] [place] [address] [place] AMERICANitrite Ql (U)NegativeNormal NegativeLutheran HospitalComment on above:Order Comment: Specimen Type: URINE SPECIMENOrdering Facility: [facility] Address:[address] [place], [place] [address]Performed By: #### 69588-6 ####TAOISM LABORATORYCLIA [id number] [place] [address] [place] AMERICApH (U) 6.5 [pH]Normal5.0-8.0Lutheran HospitalComment on above:Order Comment: Specimen Type: URINE SPECIMENOrdering Facility: [facility] Address:[address] [place], [place] [address]Performed By: #### 47139-4 ####TAOISM LABORATORYCLIA [id number] [address] [place] [address] [place] AMERICAProtein (U) [Mass/Vol]NegativeNormalNegativeLutheran HospitalComment on above:Order Comment: Specimen Type: URINE SPECIMENOrdering Facility: [facility] Address:[address] [place], [place] [address]Performed By: #### 44615-4 ####TAOISM LABORATORYCLIA [id number] [address] [place], [place] [address] [facility] PORTSMOUTHRBC LM.HPF (Urine sed) [#/Area]0-3 /HPFNormal0-3 /HPFLutheran HospitalComment on above:Order Comment: Specimen Type: URINE SPECIMENOrdering Facility: [facility] Address:[address] [place], [place] [address]Performed By: #### 12587-0 ####TAOISM LABORATORYCLIA [id number] [place] [address] [place] MATHER HOSPITALSpecific gravity (U) [Rel density]1.192Trnhew4.005-1.030Lutheran HospitalComment on above:Order Comment: Specimen Type: URINE SPECIMENOrdering Facility: [facility] Address:[address] [place], [place] [address]Performed By: #### 10229-7 ####TAOISM LABORATORYCLIA [id number] [address]ETUrobilinogen Ql (U)1.0 EU/dLNormal0.2-1.0 EU/dL Buddhism HospitalComment on above:Order Comment: Specimen Type: URINE SPECIMENOrdering Facility: [facility] Address:[address] [place], [place] [address]Performed By: #### 52586-0 ####TAOISM LABORATORYCLIA [id number] [address] STATES MATHER HOSPITALW LM.HPF (Urine sed) [#/Area]0-5 /HPFNormal0-5 /HPFLutheran HospitalComment on above:Order Comment: Specimen Type: URINE SPECIMENOrdering Facility: [facility] Address:[address] [place] [address], [place] [address]Xyvgubvlz By: #### 48538-8 ####TAOISM LABORATORYCLIA [id number] [address] STATES OF PROMEDICA MEMORIAL HOSPITALAlanine aminotransferase [Enzymatic activity/volume] in Serum or PlasmaOrdered By: Elier Jackson on 63-78-0314DVE [Catalytic activity/Vol]15 U/LNormal7-52Grant HospitalComment on above:Performed By: #### HCGQNT #### [facility] [address] [place] [address] USAAlbumin [Mass/volume] in Serum or Plasma by Bromocresol green (BCG) dye binding methoOrdered By: Elier Jackson on 48-85-4264Mpxjngl BCG dye [Mass/Vol]4.3 g/dL3.5-5.7FUK HealthcareAlkaline phosphatase [Enzymatic activity/volume] in Serum or PlasmaOrdered By: Elier Jackson on 29-88-4041DHH [Catalytic activity/Vol]68 U/MVxgdun95-747OcpvpbelvGrant HospitalComment on above:Performed By: #### HCGQNT #### [facility] [address] [place] [address] USAAspartate aminotransferase [Enzymatic activity/volume] in Serum or PlasmaOrdered By: Elier Jackson on 96-95-5147PUF [Catalytic activity/Vol]17 U/KZovmbv69-43HgndwukutGrant HospitalComment on above: Performed By: #### HCGQNT #### [facility] [address] [place] [address] USAAutomated basophil %Ordered By: Elier Jackson on 04-30-2023 Basophils/100 WBC (Bld)1.3 %Normal.Grant HospitalComment on above:Performed By: #### HCGQNT #### [facility] [address] [place] [address] USAAutomated basophil countOrdered By: Elier Jackson on 61-28-0790Xiifyibkr (Bld) [#/Vol]0.0 10*3/uLNormal0.0-0.2FUK HealthcareComment on above:Result Comment: PERFORMED BY: [place] [address] PATHOLOGIST PIERCING MILL OPERATOR FARNAZ ZULETA M.D.Performed By: #### HCGQNT #### [place] [address] USAAutomated blood monocyte countOrdered By: Elier Jackson on 47-25-8208Fmjfeoqsm (Bld) [#/Vol]0.3 10*3/uLNormal0.0-0.8Grant HospitalComment on above:Performed By: #### HCGQNT #### [place] [address] USAAutomated eosinophil %Ordered By: Elier Jackson on 34-66-9588Udqfuboemcm/100 WBC (Bld)0.6 %Normal.[facility] Comment on above:Performed By: #### HCGQNT #### [place] [address] USAAutomated eosinophil countOrdered By: Elier Jackson on 93-69-8986Asjrptywlls (Bld) [#/Vol]0.0 10*3/uLNormal0.0-0.45Grant HospitalComment on above:Performed By: #### HCGQNT #### [place] [address] USAAutomated erythrocytes count in urine sediment (number/area)Ordered By: Elier Jackson on 60-23-8306WUF Auto (Urine sed) [#/Area] 5-9 [HPF]0-4FUK HealthcareAutomated leukocytes count in urine sediment (number/area)Ordered By: Elier Jackson on 87-32-0668SIX Auto (Urine sed) [#/Area]0-1 [HPF]0-4FUK HealthcareAutomated monocyte % Ordered By: Elier Jackson on 40-65-0223Ssnjiuayq/100 WBC (Bld)7.0 %Normal. Grant HospitalComment on above:Performed By: #### HCGQNT #### [place] [address] USAAutomated neutrophil %Ordered By: Elier Jackson on 24-67-7596Pzkpnsihslm/100 WBC (Bld)46.9 %Normal.Grant HospitalComment on above:Performed By: #### HCGQNT #### [place] [address] USAAutomated urine color determinationOrdered By: Elier Jackson on 15-85-3917Dgdti (U)YellowNormalYellowGrant Hospital Comment on above:Order Comment: Name Collection Type:: Clean-Voided Midstream Performed By: #### UHCG, ADDONUAPLUS #### [place] [address] USABasic Metabolic Panelon 92-15-9245Noorywrkue Clr Calc Fpnfvqle[address] [place] [address] Physician GroupComment on above:Performed By: #### HCGQNT #### [place] [address] USAGFR/1.73 sq M.predicted MDRD (S/P/Bld) [Vol rate/Area] mL/min/{1.73_m2}NormalThe Critical Access Hospital Physician [facility] CenterComment on above:Performed By: #### HCGQNT #### [place] [address] USABilirubin Test strip Ql (U)Ordered By: Elier Jackson on 10-83-1247Uccvbkljb Ql (U)NegativeNegativeGrant Hospital Bilirubin.direct [Mass/volume] in Serum or PlasmaOrdered By: Elier Jackson on 18-93-3819Mntbtgwzk.direct [Mass/Vol]0.10 mg/dL0.03-0.18FUK HealthcareBilirubin.total [Mass/volume] in Serum or PlasmaOrdered By: Elier Jackson on 23-39-1856Bnbjpxdcz [Mass/Vol]0.4 mg/dLNormal0.3-1.0Grant HospitalComment on above:Performed By: #### HCGQNT #### [facility] [address] [place] [address] USACalcium [Mass/volume] in Serum or PlasmaOrdered By: Elier Manuel on 73-49-8766Enovixd [Mass/Vol]9.2 mg/dLNormal8.6-10.3FUK HealthcareComment on above:Performed By: #### HCGQNT #### [place] [address] USACarbon dioxide, total [Moles/volume] in Serum or Plasma Ordered By: Elierjaqui Jackson on 44-29-6097NF7 [Moles/Vol]20.1 mmol/LLow21.0-31.0 Grant HospitalComment on above:Performed By: #### HCGQNT #### [place] [address] USAChloride [Moles/volume] in Serum or PlasmaOrdered By: Elier Jackson on 10-58-4047Kckgjpmr [Moles/Vol]109 mmol/DPxho86-404FopdadecgGrant HospitalComment on above:Performed By: #### HCGQNT #### [place] [address] USAComplete Blood Count Auto Diffon 78-20-6669Wweg Corpuscular HGB Conc34.7 g/hMRtrrjt86.0-35.0The [facility] Access Hospital Physician GroupComment on above:Performed By: #### HCGQNT #### [place] [address] USAMonocytes/100 WBC (Bld)16.58 %Normal0.00-20.00The [facility] Access Hospital Physician GroupComment on above:Performed By: #### HCGQNT #### [facility] [address] [place] [address] USANRBC%0.1 /100{WBC}Normal0-0.5The [facility] Physician Group Comment on above:Performed By: #### HCGQNT #### [place] [address] USACreatinine [Mass/volume] in Serum or PlasmaOrdered By: Elier Jackson on 35-64-0397Ubsicuapyq [Mass/Vol]0.65 mg/dLNormal0.60-1.20 Grant HospitalComment on above:Performed By: #### HCGQNT #### [place] [address] USADipstick and Microscopicon 52-02-1629Eosmsyxcqf (U)Clear NormalClearThe Critical Access Hospital Physician GroupComment on above:Order Comment: Name Collection Type:: Clean-Voided MidstreamPerformed By: #### UHCG, ADDONUAPLUS #### [place] [address] USABacteria,UrineNone SeenNormalNone SeenOrlando Health South Lake Hospital Physician GroupComment on above:Order Comment: Name Collection Type:: Clean- Voided MidstreamPerformed By: #### UHCG, ADDONUAPLUS #### [place] [address] USABilirubin,UrineNegativeNormalNegativeOrlando Health South Lake Hospital Physician GroupComment on above:Order Comment: Name Collection Type:: Clean- Voided MidstreamPerformed By: #### UHCG, ADDONUAPLUS #### [place] [address] USAGlucose Ql (U)NormalNormalNormalThe Critical Access Hospital Physician GroupComment on above:Order Comment: Name Collection Type:: Clean-Voided MidstreamPerformed By: #### UHCG, ADDONUAPLUS #### [place] [address] USAHyaline Casts,Dermt2-7Ggpoqb1-6Qct [facility] Access Hospital Physician GroupComment on above:Order Comment: Name Collection Type:: Clean-Voided MidstreamPerformed By: #### UHCG, ADDONUAPLUS #### [place] [address] USAKetones Ql (U)NegativeNormalNegativeOrlando Health South Lake Hospital Physician GroupComment on above:Order Comment: Name Collection Type:: Clean- Voided MidstreamPerformed By: #### UHCG, ADDONUAPLUS #### [place] [address] USALeukocyte esterase Test strip Ql (U)NegativeNormalNegative The [facility] Access Hospital Physician GroupComment on above:Order Comment: Name Collection Type:: Clean-Voided MidstreamPerformed By: #### UHCG, ADDONUAPLUS #### [place] [address] USANitrite,UrineNegativeNormalNegativeThe Critical Access Hospital Physician GroupComment on above:Order Comment: Name Collection Type:: Clean-Voided MidstreamPerformed By: #### UHCG, ADDONUAPLUS #### [place] [address] USAOccult Blood,Urine2+HighNegativeThe Critical Access Hospital Physician GroupComment on above:Order Comment: Name Collection Type:: Clean-Voided MidstreamPerformed By: #### UHCG, ADDONUAPLUS #### [place] [address] USAProtein,UrineNegativeNormalNegativeThe Critical Access Hospital Physician GroupComment on above:Order Comment: Name Collection Type:: Clean-Voided MidstreamPerformed By: #### UHCG, ADDONUAPLUS #### [place] [address] USARBC,Ymqqc9-9Rgtj8-3Sgh Critical Access Hospital Physician GroupComment on above:Order Comment: Name Collection Type:: Clean-Voided MidstreamPerformed By: #### UHCG, ADDONUAPLUS #### [place] [address] USASpecificy [place],Urine1.277Nvxhxu5.001-1.030The Critical Access Hospital Physician GroupComment on above:Order Comment: Name Collection Type:: Clean- Voided MidstreamPerformed By: #### UHCG, ADDONUAPLUS #### [place] [address] USASquamous Epithelial Cell,Szcrj7-0Xpvaly7-9Xft Critical Access Hospital Physician GroupComment on above:Order Comment: Name Collection Type:: Clean- Voided MidstreamPerformed By: #### UHCG, ADDONUAPLUS #### [place] [address] USAUrobilinogen,UrineNormalNormalNormalThe Critical Access Hospital Physician GroupComment on above:Order Comment: Name Collection Type:: Clean- Voided MidstreamPerformed By: #### UHCG, ADDONUAPLUS #### [place] [address] USAWBC LM.HPF (Urine sed) [#/Area]0 /[HPF]Normal0-4The Critical Access Hospital Physician GroupComment on above:Order Comment: Name Collection Type:: Clean-Voided MidstreamPerformed By: #### UHCG, ADDONUAPLUS #### [place] [address] USAErythrocyte distribution width [Ratio] by Automated count Ordered By: Elier Jackson on 80-85-5399Bjbqhwdcohg distribution width (RBC) [Ratio]16.8 %High11.9-15.3FUK HealthcareComment on above: Performed By: #### HCGQNT #### [place] [address] USAErythrocytes [#/volume] in Blood by Automated countOrdered By: Elier Jackson on 36-26-8198NLL (Bld) [#/Vol]3.68 10*6/uLNormal3.60-5.00 Grant HospitalComment on above:Performed By: #### HCGQNT #### [place] [address] USAGlucose [Mass/volume] in Serum or PlasmaOrdered By: Elier Jackson on 65-63-8232Infwaly [Mass/Vol]100 mg/uWYvnehx17-929SjhaghsgkGrant HospitalComment on above:ADA recommended reference rangeRandom Glucose Reference Range is dependent on time and content of last meal. Glucose of more than 200 mg/dL in a nonstressed, ambulatory subject supports the diagnosisof Diabetes Mellitus.Result Comment: Random Glucose Reference Range is dependent on time and content of last meal. Glucose of more than 200 mg/dL in a nonstressed, ambulatory subject supports the diagnosis of Diabetes Mellitus. ADA recommended reference rangePerformed By: #### HCGQNT #### [place] [address] USAHCG ( test) IA.rapid Ql (U)Ordered By: Elierjaqui Jackson on 77-45-5212KHH ( test) Ql (U)NegativeGrant HospitalHCG,Urineon 93-52-1940Ycjz HCG ( test) Ql (U)NegativeNoPending sale to [facility] Physician GroupComment on above:Order Comment: Name Collection Type:: Clean-Voided MidstreamResult Comment: PERFORMED BY: [place] [address] PATHOLOGIST PIERCING MILL OPERATOR FARNAZ ZULETA M.D.Performed By: #### UHCG, ADDONUAPLUS #### [place] [address] USAHematocrit [Volume Fraction] of Blood by Automated count Ordered By: Elier Jackson on 53-89-6832Mcwjeokvsr (Bld) [Volume fraction]32.3 % Low34.0-46.4FUK HealthcareComment on above:Performed By: #### HCGQNT #### [place] [address] USAHemoglobin [Mass/volume] in BloodOrdered By: Elier Jackson on 31-62-8895Trcgrezbir (Bld) [Mass/Vol]11.2 g/dLLow11.8-15.4FUK HealthcareComment on above:Performed By: #### HCGQNT #### [place] [id number] USAHepatic Panelon 16-96-7348Jzgxnts [Mass/Vol]4.3 g/dLNormal 3.5-5.7The [facility] Access Hospital Physician GroupComment on above:Performed By: #### HCGQNT #### [place] [address] USABilirubin,Indirect0.3 mg/dLNormECU Health Beaufort Hospitallands Physician GroupComment on above:Performed By: #### HCGQNT #### [facility] [address] [place] [address] USABilirubin.indirect [Mass/Vol]0.10 mg/dLNormal0.03-0.18The [facility] Physician [facility] CenterComment on above:Performed By: #### HCGQNT #### [place] [address] USAKetones Auto test strip (U) [Mass/Vol]Ordered By: Elier Jackson on 69-62-9364Cualesp (U) [Mass/Vol]NegativeNegativeGrant HospitalLaboratory - UrinalysisOrdered By: Elier Jackson on 04-30-2023 Hyaline casts LM Ql (Urine sed)0-8 [LPF]0-8[facility] Leukocytes [#/volume] corrected for nucleated erythrocytes in Blood by Automated counOrdered By: Elier Jackson on 65-84-6625ZZZ corrected for nucl RBC Auto (Bld) [#/Vol]3.6 10*3/uL3.8-11.6FUK HealthcareLeukocytes [#/volume] in Blood by Automated countOrdered By: Elier Jackson on 87-71-2652KPZ (Bld) [#/Vol]3.6 10*3/uLLow3.8-11.6FUK HealthcareComment on above:Performed By: #### HCGQNT #### [place] [address] USALipase [Enzymatic activity/volume] in Serum or Plasma Ordered By: Elier Jackson on 69-89-5334Fjboov [Catalytic activity/Vol]31.0 U/L Nkyxmp57.0-82.0Grant HospitalComment on above:Result Comment: PERFORMED BY: [place] [address] PATHOLOGIST PIERCING MILL OPERATOR FARNAZ ZULETA M.D.Performed By: #### HCGQNT #### [facility] [address] [place] [address] USALymphocytes [#/volume] in Blood by Automated countOrdered By: Elier Jackson on 43-85-5403Gtdxsmfykap (Bld) [#/Vol]1.6 10*3/uLNormal1.00-4.8 Grant HospitalComment on above:Performed By: #### HCGQNT #### [facility] [address] [place] [id number] USALymphocytes/100 leukocytes in Blood by Automated count Ordered By: Elier Jackson on 57-31-8913Monvdgxyelk/100 WBC (Bld)44.2 %Normal. Grant HospitalComment on above:Performed By: #### HCGQNT #### [facility] [address] [place] [address] USAMCH [Entitic mass] by Automated countOrdered By: Elier Jackson on 15-00-7643FMO (RBC) [Entitic mass]30.4 jeYhvagx36.7-34.3FUK HealthcareComment on above:Performed By: #### HCGQNT #### [facility] [address] [place] [address] USAMCHC Auto (RBC) [Mass/Vol]Ordered By: Elier Jackson on 60-95-1588LRPC (RBC) [Mass/Vol]34.7 g/dL32.0-35.0Grant HospitalMCV [Entitic volume] by Automated countOrdered By: Elier Jackson on 99-84-2458JOS (RBC) [Entitic vol]87.6 jFChqwxr51-053OppxpvywyGrant HospitalComment on above:Performed By: #### HCGQNT #### [facility] [address] [place] [address] USAMonocyte distribution width [Entitic volume] in Blood by AutomatedOrdered By: Elier Jackson on 55-62-0263Aqyramew distribution width Auto (Bld) [Entitic vol]16.58 %0.00-20.00Grant HospitalNeutrophils [#/volume] in Blood by Automated countOrdered By: Elier Jackson on 04-30-2023 Neutrophils (Bld) [#/Vol]1.7 10*3/uLLow1.8-7.7F[facility] Comment on above:Performed By: #### HCGQNT #### [facility] [address] [place] [address] USANitrite Test strip Ql (U)Ordered By: Elier Manuel on 55-40-5846Udctavn Ql (U)NegativeNegativeGrant HospitalNo Panel InformationOrdered By: Elierjaqui Jackson on 51-75-9977Atnlbfhoy GFR (CKD-EPI)> 60.0 mL/MinGrant HospitalPharmacy Creatinine Clearance (Chem 107.67Grant HospitalNucleated erythrocytes [Presence] in Blood by Automated countOrdered By: Elierjaqui Jackson on 22-03-5789Bnoepgsiu RBC Auto Ql (Bld)0.1 /100{WBC}0-0.5FUK HealthcarePlatelet mean volume [Entitic volume] in Blood by Automated countOrdered By: Elierjaqui Jackson on 58-38-6875Wuvecucw mean volume (Bld) [Entitic vol]8.0 fLNormal6.3-10.7FUK HealthcareComment on above:Performed By: #### HCGQNT #### [facility] [address] [place] [address] USAPlatelets [#/volume] in Blood by Automated countOrdered By: Elierjaqui Jackson on 58-83-3039Lhciyxhzo (Bld) [#/Vol]415 10*3/yUDyuqex134-516 Grant HospitalComment on above:Performed By: #### HCGQNT #### [facility] [address] [place] [address] USAPotassium [Moles/volume] in Serum or PlasmaOrdered By: Elier Jackson on 17-60-0843Vgvuyawrs [Moles/Vol]3.8 mmol/LNormal3.5-5.1FUK HealthcareComment on above:Performed By: #### HCGQNT #### [facility] [address] [place] [address] USAProtein Auto test strip (U) [Mass/Vol]Ordered By: Elier Manuel on 95-74-5234Dsqnxwn (U) [Mass/Vol]NegativeNegativeGrant HospitalProtein [Mass/volume] in Serum or PlasmaOrdered By: Elier Manuel on 78-36-2056Vsjuzig [Mass/Vol]7.6 g/dLNormal6.4-8.9Grant HospitalComment on above:Performed By: #### HCGQNT #### [facility] [address] [place] [address] USASerum globulin measurement by calculation (mass/volume) Ordered By: Elier Jackson on 24-78-6848Izmgkdrb (S) [Mass/Vol]3.3 g/dLNormal Grant HospitalComment on above:Performed By: #### HCGQNT #### [place] [address] USASerum or plasma albumin/globulin mass ratioOrdered By: Elier Jackson on 50-47-9610Dstcqmn/Globulin [Mass ratio]1.3 {ratio}Normal Grant HospitalComment on above:Performed By: #### HCGQNT #### [place] [address] USASerum or plasma anion gap determinationOrdered By: Elier Jackson on 02-46-2841Qlqve gap [Moles/Vol]14.7 mmol/LNormal6.0-15.0Grant HospitalComment on above:Performed By: #### HCGQNT #### [place] [address] USASerum or plasma non-glucuronidated bilirubin measurement (mass/volume)Ordered By: Elier Jackson on 19-88-4223Xdeqomwib.indirect [Mass/Vol] 0.3 mg/dLAkron Children's Hospitalodium [Moles/volume] in Serum or PlasmaOrdered By: Elier Jackson on 11-10-0912Bkawdx [Moles/Vol]140 mmol/LNormal 136-145Grant HospitalComment on above:Performed By: #### HCGQNT #### [facility] [address] [place] [address] USASpecific gravity Auto test strip (U) [Rel density]Ordered By: Elier Jackson on 14-43-1208Ndpfkqgy gravity (U) [Rel density]1.0181.001-1.030 [facility] Children's Hospitalquamous epithelial cells detection in urine sediment by light microscopyOrdered By: Elier Jackson on 82-51-5152Lqulzpkqgs cells.squamous LM Ql (Urine sed)0-1 [HPF]0-2FUK HealthcareUS pelvic completeon 23-18-9114SJ pelvic completeCR[facility]STAL [facility] [address] [place] [address] [place] [address] Ultrasound Report Signed Patient: Antonia Noyola MR#: [id number] [id number] : 1985 Acct:[id number] Age/Sex: 38 / F ADM Date: 04/30/23 Loc: ER Room: Type: [facility] ER Attending Dr: Ordering Provider: Elier Jackson DO Date of Service: 04/30/23 US/US pelvic complete: L pelvic pain ([id number]) US/US transvaginal: LT PELVIC PAIN Copies to: [...] ovarian torsion. Impression dictated by: Dennis Betancur Jr. DJuan J04/30/2023 6:24 PM Dictation Location: [place] [address] Tech: Brooke Hodge Transcribed By: AMBER 04/30/231823 Dictated By: Dennis Betancur Jr, 04/30/231820 Signed By: 04/30/231823[facility] Physician GroupUrea nitrogen [Mass/volume] in Serum or PlasmaOrdered By: Elier Jackson on 88-89-4494Vntm nitrogen [Mass/Vol]6 mg/dLLow7-25Grant HospitalComment on above:Performed By: #### HCGQNT #### [facility] [address] [place] [id number] USAUrine bacteria detection by automated methodOrdered By: Elier Jackson on 74-81-1322Qsszafpc Auto Ql (U)None [facility] CampusUrine clarity by refractometry automatedOrdered By: Elier Jackson on 94-86-7515Ujchllm Refractometry automated (U)ClearCleFirelands Regional Medical Center South CampusUrine glucose measurement by automated test strip (mass/volume)Ordered By: Elier Jackson on 36-01-5220Wqrswzj Auto test strip (U) [Mass/Vol]Normal mg/dLMiami Valley HospitalUrine hemoglobin detection by automated test stripOrdered By: Elier Jackson on 04-30-2023 Hemoglobin Auto test strip Ql (U)2+NegativeGrant Hospital Urine leukocyte esterase detection by automated test stripOrdered By: Elier Jackson on 19-35-7742Wtjkgxrge esterase Auto test strip Ql (U)NegativeNegative Grant HospitalUrine pH measurement by automated test strip Ordered By: Elier Jackson on 46-46-5810gJ (U)5.5 [pH]Normal5.0-9.0Grant HospitalComment on above:Order Comment: Name Collection Type:: Clean-Voided MidstreamPerformed By: #### UHCG, ADDONUAPLUS #### [facility] [address] [place] [id number] USAUrobilinogen Auto test strip (U) [Mass/Vol]Ordered By: Elier Jackson on 65-35-0723Jwlmzxohwbua (U) [Mass/Vol]Normal mg/dLMiami Valley HospitalCHEMISTRYOrdered By: SYSTEM SYSTEM on 90-95-9750Rlhoe gap [Moles/Vol]14 mmol/LNormal6 - 16 mEq/LFTMC RemisolCalcium [Mass/Vol]9.4 mg/dLNormal8.9 - 11.1 mg/dLFAIRFAX COMMUNITY [facility]OSPITAL [facility] RemisolChloride [Moles/Vol]105 mmol/NGtmjpk463 - 111 mmol/LFTMC RemisolCO2 [Moles/Vol]23 mmol/UVwhctn59 - 31 mmol/LFTMC Remisol Creatinine [Mass/Vol]0.7 mg/dLNormal0.5 - 1.3 mg/dLFAIRFAX COMMUNITY HOSPITAL – [facility] RemisolGFR/1.73 sq M.predicted among non-blacks MDRD (S/P/Bld) [Vol rate/Area]115 mL/min/1.73 m2 Normal>=59mL/min/1.73 m2FAIRFAX COMM[facility]ITY [facility] Chem SComment on above:Interpretive Data: Chronic kidney disease could be indicated at eGFR's of less than 60 mL/min/1.73m2. Kidney failure is indicated at less than 15 mL/min/1.73m2.Glucose [Mass/Vol]95 mg/iEPbpgey14 - 199 mg/dLFAIRFAX COMMUNITY HOSPITAL – [facility] RemisolComment on above:Interpretive Data: If this glucose result represents a fasting glucose, interpretation should referto the following reference range: 55-99 mg/dLPotassium [Moles/Vol]3.8 mmol/LNormal3.5 - 5.3 mmol/LFTMC RemisolSodium [Moles/Vol]138 mmol/EFqwbtr385 - 145 mmol/LFTMC RemisolUrea nitrogen [Mass/Vol]6 mg/dLNormal5 - 21 mg/dLFAIRFAX COMMUNITY HOSPITAL [facility] RemisolUrea nitrogen/Creatinine [Mass ratio]9 mg/mgLow10 - 20FA[facility] RemisolHEMATOLOGYOrdered By: SYSTEM SYSTEM on 69-04-5625Tddmspkfi/100 WBC (Bld)0.3 %Normal0.0 - 2.0 %[facility] HemeAutoSSBasophils/Leukocytes Auto (Bld) [Pure # fraction]0.0 E9/LNormal0.0 - 0.2 E9/LFTMC HemeAutoSSEosinophils/100 WBC (Bld)0.9 %Normal0.0 - 8.0 %[facility] HemeAutoSSEosinophils/Leukocytes Auto (Bld) [Pure # fraction]0.0 E9/LNormal0.0 - 0.5 E9/LFTMC HemeAutoSSLymphocytes/100 WBC (Bld)49.9 %Gymgcb76.0 - 50.0 %[facility] HemeAutoSSLymphocytes/Leukocytes Auto (Bld) [Pure # fraction]2.3 E9/LNormal1.0 - 4.0 E9/LFTMC HemeAutoSSMonocytes/100 WBC (Bld)7.1 %Normal4.0 - 14.0 %[facility] HemeAutoSSMonocytes/Leukocytes Auto (Bld) [Pure # fraction]0.3 E9/LNormal0.2 - 1.0 E9/LFTMC HemeAutoSSNeutrophils/100 WBC (Bld)41.8 %Cwauqp54.0 - 75.0 %[facility] HemeAutoSSNeutrophils/Leukocytes Auto (Bld) [Pure # fraction]2.0 E9/LNormal2.0 - 7.5 E9/LFTMC HemeAutoSSHEMATOLOGYOrdered By: Ngoc Ramirez on 04-24-2023 Erythrocyte distribution width (RBC) [Ratio]15.9 %High10.9 - 14.2 %[facility] HemeAutoSSHematocrit (Bld) [Volume fraction]33.7 %Low34.0 - 46.0 %[facility] HemeAutoSSHemoglobin (Bld) [Mass/Vol]11.7 g/dLLow12.0 - 16.0 gm/dLFTMC HemeAutoSSMCH (RBC) [Entitic mass]29.7 flUzkhcq15.0 - 34.0 pgFTMC HemeAutoSSMCHC (RBC) [Mass/Vol]34.7 g/qVTjpupm48.4 - 36.0 gm/dLFTMC HemeAutoSSMCV (RBC) [Entitic vol]85.8 kBJhgcfd09.0 - 100.0 fLFTMC HemeAutoSSPlatelet mean volume (Bld) [Entitic vol]8.2 fLNormal6.4 - 10.8 fLFTMC HemeAutoSSPlatelets (Bld) [#/Vol]398.0 E9/SNxcszc577.0 - 500.0 E9/[facility] HemeAutoSSRBC (Bld) [#/Vol]3.9 E12/LLow4.3 - 5.9 E12/[facility] HemeAutoSSWBC corrected for nucl RBC Auto (Bld) [#/Vol]4.7 E9/LNormal4.0 - 11.0 /[facility] HemeAutoSSSEROLOGYOrdered By: Brooke Guthrie on 28-61-2083Agvy HCG ( test) QlNegative (04/24/23 1:55 PM)NormalFAIRFAX COMMUNITY HOSPITAL [facility] Man SeroURINALYSISOrdered By: Brooke Guthrie on 21-53-0021Fynabbzw LM Ql (Urine sed)Trace /HPFNormalTrace/HPFFAIRFAX COMMUNITY HOSPITAL [facility] UA Auto SS Bilirubin Ql (U)Negative (04/24/23 2:56 PM)NormalNegativeFAIRFAX COMMUNITY HOSPITAL [facility] UA Auto SSClarity (U)Clear (04/24/23 2:56 PM)NormalClearFOKLAHOMA STATE UNIVERS[facility] [place] UA Auto SSColor (U)Straw *ABN* (04/24/23 2:56 PM)Invalid Interpretation CodeYellowFAIRFAX COMMUNITY HOSPITAL – [facility] UA Auto SSEpithelial cells.squamous LM.HPF (Urine sed) [#/Area]3-4 /HPFNormal0-2/HPFFAIRFAX COMMUNITY HOSPITAL – [facility] UA Auto SS Glucose Test strip (U) [Mass/Vol]Negative (04/24/23 2:56 PM)NormalNegativeFAIRFAX COMMUNITY HOSPITAL [facility] UA Auto SSHemoglobin Ql (U)Negative (04/24/23 2:56 PM)NormalNegativeFAIRFAX COMMUNITY HOSPITAL [facility] UA Auto SSKetones (U) [Mass/Vol]Negative (04/24/23 2:56 PM)NormalNegativeFAIRFAX COMMUNITY HOSPITAL [facility] UA Auto SSLithium.plasma/[place].RBC (Bld) [Mass ratio]0-3 /HPFNormal0-3/HPFFAIRFAX COMMUNITY HOSPITAL [facility] UA Auto SSNitrite Ql (U)Negative (04/24/23 2:56 PM)NormalNegativeFAIRFAX COMMUNITY HOSPITAL [facility] UA Auto SSpH (U)7.0 *NA* (04/24/23 2:56 PM)Invalid Interpretation Code5.0 - 9.0FA[facility]FA[facility] UA Auto SSProtein (U) [Mass/Vol]Negative (04/24/23 2:56 PM)NormalNegativeFAIRFAX COMMUNITY HOSPITAL – [facility] UA Auto SSSpecific gravity (U) [Rel density]<=1.005 *NA* (04/24/23 2:56 PM)Invalid Interpretation Code1.005 - 1.030FA[facility] UA Auto SSUA Spec DescClean Catch (04/24/23 2:56 PM)NormalFAIRFAX COMMUNITY HOSPITAL – [facility] UA Auto SSUrobilinogen Qn (U)0.4943948 {Ivone'U}/dLNormal0.0 - 1.0 EU/dLFAIRFAX COMMUNITY HOSPITAL – [facility] UA Auto SSWBC Auto Ql (U)Trace *ABN* (04/24/23 2:56 PM)Invalid Interpretation CodeNegativeFAIRFAX COMMUNITY HOSPITAL – [facility] UA Auto SSWBC LM.HPF (Urine sed) [#/Area]0-5 /HPFNormal0-5/HPFFAIRFAX COMMUNITY HOSPITAL – [facility] UA Auto SSAnisocytosis [Presence] in Blood by Light microscopyOrdered By: Sarah Childress on 04-02-2023 Anisocytosis Ql (Bld)ModerateMiami Valley HospitalComment on above:Performed By: #### RICARDO AVILAUAPLUS #### [facility] [address] [place] [address] USAAutomated erythrocytes count in urine sediment (number/area)Ordered By: Sarah Childress on 51-39-3633WMN Auto (Urine sed) [#/Area]20-49 [HPF]0-4FUK HealthcareAutomated leukocytes count in urine sediment (number/area)Ordered By: Sarah Childress on 04-02-2023 WBC Auto (Urine sed) [#/Area]3-4 [HPF]0-4[facility] Automated urine color determinationOrdered By: Sarah Childress on 04-02-2023 Color (U)YellowHermann Area District HospitalalYUniversity Hospitals Elyria Medical CenterComment on above: Order Comment: Name Collection Type:: Clean-Voided MidstreamPerformed By: #### SARAHG, ADDONUAPLUS #### [facility] [address] [place] [address] USABasic Metabolic Panelon 77-15-6845Uacvazzjvj Clr Calc Gmqtifcb67.72NoPending sale to [facility] Physician GroupComment on above:Result Comment: PERFORMED BY: [place] [address] PATHOLOGIST PIERCING MILL OPERATOR FARNAZ ZULETA M.D.Performed By: #### AUSTIN, ADDONUAPLUS #### [place] [address] USAGFR/1.73 sq M.predicted MDRD (S/P/Bld) [Vol rate/Area] mL/min/{1.73_m2}NormalThe Critical Access Hospital Physician GroupComment on above:Performed By: #### AUSTIN, ADDONUAPLUS #### [place] [address] USABasophils Auto (Bld) [#/Vol]Ordered By: Sarah Childress on 06-58-9702Frosjunik (Bld) [#/Vol]N/[facility] Basophils/100 WBC Auto (Bld)Ordered By: Sarah Childress on 04-02-2023 Basophils/100 WBC (Bld)N/[facility] HospitalBasophils/100 leukocytes in Blood by Manual countOrdered By: Sarah Childress on 04-02-2023 Basophils/100 WBC (Bld)1 %Normal041 Stout StreetComment on above:Performed By: #### AUSTIN, ADDONUAPLUS #### [place] [address] USABilirubin Test strip Ql (U)Ordered By: Sarah Childress on [id number] Ql (U)NegativeNegativeGrant Hospital Calcium [Mass/volume] in Serum or PlasmaOrdered By: Sarah Childress on [id number] [Mass/Vol]9.2 mg/dLNormal8.6-10.3FUK HealthcareComment on above:Performed By: #### AUSTIN, ADDONUAPLUS #### [place] [address] USACarbon dioxide, total [Moles/volume] in Serum or Plasma Ordered By: Sarah Childress on 22-54-3761JW3 [Moles/Vol]18.5 mmol/LLow21.0-31.0 Grant HospitalComment on above:Performed By: #### LUL AVILAONUAPLUS #### [facility] [facility] [address] [place] [address] USAChloride [Moles/volume] in Serum or PlasmaOrdered By: Sarah Monroe on 12-32-4671Zrecxxpc [Moles/Vol]108 mmol/QXsak41-379OgkymnnprGrant HospitalComment on above:Performed By: #### AUSTIN ADDONUAPLUS #### [place] [address] USACreatinine [Mass/volume] in Serum or PlasmaOrdered By: Sarah Childress on 93-99-9019Blhjdlimlo [Mass/Vol]0.84 mg/dLNormal0.60-1.20 Grant HospitalComment on above:Performed By: #### AUSTIN ADDONUAPLUS #### [facility] [address] [place] [address] USADiff and CBCon 13-60-5319UiwpdosuiqqmwEzbltmCvjusqBxm [facility] Physician [facility] CenterComment on above:Performed By: #### AUSTIN ADDONUAPLUS #### [place] [address] USAMean Corpuscular HGB Conc31.8 g/dLLow32.0-35.0The [facility] Access Hospital Physician GroupComment on above:Performed By: #### AUSTIN ADDONUAPLUS #### [place] [address] USAMonocytes/100 WBC (Bld)18.83 %Normal0.00-20.00The [facility] Access Hospital Physician GroupComment on above:Performed By: #### AUSTIN ADDONUAPLUS #### [place] [address] USANucleated Red Blood Cell3 /100{WBC}High0-0The Critical Access Hospital Physician GroupComment on above:Performed By: #### AUSTIN ADDONUAPLUS #### [address] [place] [address] USAOvalocytesSlightSarasota Memorial Hospital - Venice Physician GroupComment on above:Performed By: #### ERICCDale ADDONUAPLUS #### [place] [address] USAPlatelet EstimateIncreasedNormHCA Florida [facility] Hospital Physician GroupComment on above:Performed By: #### AUSTIN ADDONUAPLUS #### [place] [address] USAPlatelet MorphologyNormalNormalSarasota Memorial Hospital - Venice Physician GroupComment on above:Result Comment: PERFORMED BY: [place] [address] PATHOLOGIST PIERCING MILL OPERATOR FARNAZ ZULETA M.D.Performed By: #### AUSTIN ADDONUAPLUS #### [place] [address] USAPoikilocytosisSAngel Medical Center Physician Group Comment on above:Performed By: #### AUSTIN, ADDONUAPLUS #### [place] [address] USAPolychromasiaModerateNoPending sale to [facility] Comment on above:Performed By: #### AUSTIN, ADDONUAPLUS #### [place] [address] USASmudge CellsSAngel Medical Center Physician Group Comment on above:Performed By: #### ERICCDale, ADDONUAPLUS #### [facility] [address] [place] [address] USAToxic VacuolationSAngel Medical Center Physician Group Comment on above:Performed By: #### ERICCDale, ADDONUAPLUS #### [place] [address] USADipstick and Microscopicon 91-36-2079Gyesquhtfi (U)Clear NormalClearThClearwater Valley Hospital Physician GroupComment on above:Order Comment: Name Collection Type:: Clean-Voided MidstreamPerformed By: #### AUSTIN, ADDONUAPLUS #### [facility] [address] [place], [place] [id number] USABacteria,UrineNone SeenNormalNone SeenOrlando Health South Lake Hospital Physician GroupComment on above:Order Comment: Name Collection Type:: Clean- Voided MidstreamPerformed By: #### UHCG, ADDONUAPLUS #### [facility] [address] [place] [address] USABilirubin,UrineNegativeNormalNegativeOrlando Health South Lake Hospital Physician GroupComment on above:Order Comment: Name Collection Type:: Clean- Voided MidstreamPerformed By: #### UHCG, ADDONUAPLUS #### [facility] [address] [place] [address] USAGlucose Ql (U)NormalNormalNormalThe Critical Access Hospital Physician GroupComment on above:Order Comment: Name Collection Type:: Clean-Voided MidstreamPerformed By: #### UHCG, ADDONUAPLUS #### [place] [address] USAHyaline Casts,Boebm6-3Tlvoza0-9Sym [facility] Physician GroupComment on above:Order Comment: Name Collection Type:: Clean-Voided MidstreamPerformed By: #### UHCG, ADDONUAPLUS #### [facility] [address] [place] [address] USAKetones Ql (U)TraceHighNegativeOrlando Health South Lake Hospital Physician GroupComment on above:Order Comment: Name Collection Type:: Clean-Voided MidstreamPerformed By: #### UHCG, ADDONUAPLUS #### [facility] [address] [place], [place] [id number] USALeukocyte esterase Test strip Ql (U)1+HighNegativeOrlando Health South Lake Hospital Physician GroupComment on above:Order Comment: Name Collection Type:: Clean-Voided MidstreamPerformed By: #### UHCG, ADDONUAPLUS #### [place] [address] USANitrite,UrineNegativeNormalNegativeOrlando Health South Lake Hospital Physician GroupComment on above:Order Comment: Name Collection Type:: Clean-Voided MidstreamPerformed By: #### UHCG, ADDONUAPLUS #### [place] [address] USAOccult Blood,Urine3+HighNegativeThe Critical Access Hospital Physician GroupComment on above:Order Comment: Name Collection Type:: Clean-Voided MidstreamPerformed By: #### UHCG, ADDONUAPLUS #### [place] [address] USAProtein,UrineNegativeNormalNegativeThe Critical Access Hospital Physician GroupComment on above:Order Comment: Name Collection Type:: Clean-Voided MidstreamPerformed By: #### UHCG, ADDONUAPLUS #### [place] [address] USARBC,Hezhb49-95Qqhm6-0Qwc [facility] Hospital Physician GroupComment on above:Order Comment: Name Collection Type:: Clean-Voided MidstreamPerformed By: #### UHCG, ADDONUAPLUS #### [place] [address] USASpecificy [place],Urine1.752Dtnflq4.001-1.030The [facility] Access Hospital Physician GroupComment on above:Order Comment: Name Collection Type:: Clean- Voided MidstreamPerformed By: #### UHCG, ADDONUAPLUS #### [place] [address] USASquamous Epithelial Cell,Rpmhh5-6Ztko0-5Ksw [facility] Hospital Physician GroupComment on above:Order Comment: Name Collection Type:: Clean- Voided MidstreamPerformed By: #### UHCG, ADDONUAPLUS #### [place] [address] USAUrobilinogen,UrineNormalNormalNormalThe Critical Access Hospital Physician GroupComment on above:Order Comment: Name Collection Type:: Clean- Voided MidstreamPerformed By: #### UHCG, ADDONUAPLUS #### [place] [address] USAWBC,Bniex1-1Icblmo7-3Ult [facility] Hospital Physician GroupComment on above:Order Comment: Name Collection Type:: Clean-Voided MidstreamPerformed By: #### UHCG, ADDONUAPLUS #### [facility] [address] [place] [address] USAEosinophils Auto (Bld) [#/Vol]Ordered By: Sarah Childress on 14-97-8555Kdtvtkqkdch (Bld) [#/Vol]N/[facility] Eosinophils/100 WBC Auto (Bld)Ordered By: Sarah Childress on 04-02-2023 Eosinophils/100 WBC (Bld)N/[facility] HospitalEosinophils/100 leukocytes in Blood by Manual countOrdered By: Sarah Childress on 04-02-2023 Eosinophils/100 WBC (Bld)4 %High1-3FUK HealthcareComment on above:Performed By: #### UHCG, LULONUAPLUS #### [facility] [address] [place] [address] USAErythrocyte distribution width [Ratio] by Automated count Ordered By: Sarah Childress on 50-66-5317Zwbpsffpemk distribution width (RBC) [Ratio]15.2 %Gnoqdd38.9-15.3FUK HealthcareComment on above: Performed By: #### UHCG, LULONUAPLUS #### [place] [address] USAErythrocytes [#/volume] in Blood by Automated countOrdered By: Sarah Childress on 36-54-2131VKC (Bld) [#/Vol]4.67 10*6/uLNormal3.60-5.00 Grant HospitalComment on above:Performed By: #### UHCG, ADDONUAPLUS #### [facility] [address] [place] [address] USAGlucose [Mass/volume] in Serum or PlasmaOrdered By: Sarah Childress on 73-01-6636Rtkbbhy [Mass/Vol]94 mg/gEHigbyg58-810DflwsgfqzGrant HospitalComment on above:ADA recommended reference rangeRandom Glucose Reference Range is dependent on time and content of last meal. Glucose of more than 200 mg/dL in a nonstressed, ambulatory subject supports the diagnosisof Diabetes Mellitus.Result Comment: Random Glucose Reference Range is dependent on time and content of last meal. Glucose of more than 200 mg/dL in a nonstressed, ambulatory subject supports the diagnosis of Diabetes Mellitus. ADA recommended reference rangePerformed By: #### UHCG, ADDONUAPLUS #### [place] [id number] USAHCG ( test) IA.rapid Ql (U)Ordered By: Sarah Childress on 71-57-4857EHT ( test) Ql (U)NegativeGrant HospitalHCG,Urineon 14-87-9601Jowa HCG ( test) Ql (U)Negative NormalThe Critical Access Hospital Physician GroupComment on above:Order Comment: Name Collection Type:: Clean-Voided MidstreamResult Comment: PERFORMED BY: [place] [address] PATHOLOGIST PIERCING MILL OPERATOR FARNAZ ZULETA M.D.Performed By: #### UHCG, ADDONUAPLUS #### [place] [id number] USAHematocrit [Volume Fraction] of Blood by Automated count Ordered By: Sarah Childress on 41-61-9333Lwfmcteiij (Bld) [Volume fraction]36.1 %Ycninw27.0-46.4FUK HealthcareComment on above:Performed By: #### UHCG, ADDONUAPLUS #### [place] [id number] USAHemoglobin [Mass/volume] in BloodOrdered By: Sarah Childress on 85-15-3527Agjvccdmnv (Bld) [Mass/Vol]11.5 g/dLLow11.8-15.4FUK HealthcareComment on above:Performed By: #### UHCG, ADDONUAPLUS #### [place] [id number] USAHypochromia LM Ql (Bld)Ordered By: Sarah Childress on 55-14-6828Navvfxvdceo Ql (Bld)SlightGrant HospitalKetones Auto test strip (U) [Mass/Vol]Ordered By: Sarah Childress on 43-16-2838Aedapwx (U) [Mass/Vol]TraceNegativeGrant HospitalLaboratory - UrinalysisOrdered By: Sarah Childress on 36-98-2223Aerkorm casts LM Ql (Urine sed)0-8 [LPF]0-8Grant HospitalLeukocytes [#/volume] corrected for nucleated erythrocytes in Blood by Automated counOrdered By: Sarah Childress on 03-46-6848NKA corrected for nucl RBC Auto (Bld) [#/Vol]6.8 10*3/uL 3.8-11.6FUK HealthcareLeukocytes [#/volume] in Blood by Automated countOrdered By: Sarah Childress on 07-21-6648WOP (Bld) [#/Vol]6.8 10*3/uLNormal3.8-11.6FUK HealthcareComment on above:Performed By: #### UHCG, ADDONUAPLUS #### [facility] [address] [place] [address] USALymphocytes Auto (Bld) [#/Vol]Ordered By: Sarah Childress on 89-27-0164Bkxpnxzdkjm (Bld) [#/Vol]N/[facility] Lymphocytes/100 WBC Auto (Bld)Ordered By: Sarah Childress on 04-02-2023 Lymphocytes/100 WBC (Bld)N/[facility] HospitalLymphocytes/100 leukocytes in Blood by Manual countOrdered By: Sarah Childress on 04-02-2023 Lymphocytes/100 WBC (Bld)43 %Zxyl52-48NgldyhjabGrant HospitalComment on above:Performed By: #### UHCG, ADDONUAPLUS #### [facility] [address] [place] [id number] USAMCH [Entitic mass] by Automated countOrdered By: Sarah Childress on 55-44-1754BVI (RBC) [Entitic mass]24.5 pgLow24.7-34.3FUK HealthcareComment on above:Performed By: #### UHCG, ADDONUAPLUS #### [facility] [address] [place] [address] USAHC Auto (RBC) [Mass/Vol]Ordered By: Sarah Childress on 73-45-2062HLLR (RBC) [Mass/Vol]31.8 g/dL32.0-35.0Grant HospitalMCV [Entitic volume] by Automated countOrdered By: Sarah Childress on 90-01-4366ODX (RBC) [Entitic vol]77.3 zQKtz45-055XgxkhlaqmGrant HospitalComment on above:Performed By: #### UHCG, ADDONUAPLUS #### [facility] [address] [place] [address] USAManual blood segmented neutrophils/100 leukocytesOrdered By: Sarah Childress on 24-35-8654Bylxayboy neutrophils/100 WBC (Bld)47 %Low 50-70Grant HospitalComment on above:Performed By: #### ERICCG, ADDONUAPLUS #### [facility] [address] [place] [address] USAMonocyte distribution width [Entitic volume] in Blood by AutomatedOrdered By: Sarah Childress on 40-96-2324Zhwnnrmi distribution width Auto (Bld) [Entitic vol]18.83 %0.00-20.00[facility] Monocytes Auto (Bld) [#/Vol]Ordered By: Sarah Childress on 70-13-2419Dktkrhulz (Bld) [#/Vol]N/[facility] HospitalMonocytes/100 WBC Auto (Bld) Ordered By: Sarah Childress on 83-92-1665Zltlddmtl/100 WBC (Bld)N/[facility] HospitalMonocytes/100 leukocytes in Blood by Manual countOrdered By: Sarah Childress on 75-64-4164Keuefxpqj/100 WBC (Bld)5 %Normal2-11Grant HospitalComment on above:Performed By: #### UHCG, ADDONUAPLUS #### [facility] [address] [place] [address] USANeutrophils Auto (Bld) [#/Vol]Ordered By: Sarah Childress on 10-28-0062Ihebqyctscm (Bld) [#/Vol]N/[facility] Neutrophils/100 WBC Auto (Bld)Ordered By: Sarah Childress on 04-02-2023 Neutrophils/100 WBC (Bld)N/[facility] HospitalNitrite Test strip Ql (U)Ordered By: Sarah Childress on 76-17-1446Djefmns Ql (U)NegativeNegative Grant HospitalNo Panel InformationOrdered By: Sarah Childress on 15-10-1253Ckwhhdrqg GFR (CKD-EPI)> 60.0 mL/MinGrant HospitalPharmacy Creatinine Clearance (Chem97.72Grant HospitalNucleated RBC/100 WBC Manual cnt (Bld) [Ratio]Ordered By: Sarah Childress on 69-66-0831Phrinlsau RBC/100 WBC (Bld) [Ratio]3 /100{WBC}0-0Grant HospitalNucleated erythrocytes [Presence] in Blood by Automated countOrdered By: Sarah Childress on 59-90-2064Zpsgmklpa RBC Auto Ql (Bld)N/A Grant HospitalOvalocyte detectionOrdered By: Sarah Childress on 90-41-2888Hjerfwbiax LM Ql (Bld)SlightGrant Hospital Platelet adequacy [Presence] in Blood by Light microscopyOrdered By: Sarah Childress on 94-30-3177Hlwxzawgl LM Ql (Bld)IncreasedNormalGrant HospitalPlatelet mean volume [Entitic volume] in Blood by Automated count Ordered By: Sarah Childress on 11-49-3584Nzrfjgbd mean volume (Bld) [Entitic vol]8.1 fLNormal6.3-10.7FUK HealthcareComment on above:Result Comment: PERFORMED BY: [facility] [address] [facility] [place] [id number] PATHOLOGIST PIERCING MILL OPERATOR FARNAZ ZULETA M.D.Performed By: #### SARAHG, ADDONUAPLUS #### [facility] [address] [place] [address] USAPlatelet morphology finding [Identifier] in BloodOrdered By: Sarah Childress on 59-03-0249Yptmvisv morphology finding Nom (Bld)Normal NormalGrant HospitalPlatelets [#/volume] in Blood by Automated countOrdered By: Sarah Childress on 68-36-6787Syobsaefw (Bld) [#/Vol] 492 10*3/eKLoop610-345DhnpajkqlGrant HospitalComment on above: Performed By: #### SARAHG, LULONUAPLUS #### [place] [address] USAPoikilocytosis [Presence] in Blood by Light microscopy Ordered By: Sarah Childress on 97-44-4539Scqbmwufkyzufh LM Ql (Bld)Slight Grant HospitalPolychromasia [Presence] in Blood by Light microscopyOrdered By: Sarah Childress on 90-64-8421Hlfvglwlskbwu LM Ql (Bld) ModerateGrant HospitalPotassium [Moles/volume] in Serum or PlasmaOrdered By: Sarah Childress on 50-40-6961Kbliusgrf [Moles/Vol]3.7 mmol/L Normal3.5-5.1FUK HealthcareComment on above:Performed By: #### SARAHG, LULONUAPLUS #### [facility] [address] [place] [address] USAProtein Auto test strip (U) [Mass/Vol]Ordered By: Sarah Childress on 35-98-5689Yslaahy (U) [Mass/Vol]NegativeNegativeGrant HospitalRBC morphologyOrdered By: Sarah Childress on 28-43-7023PJT morphology finding Nom (Bld)N/AFProvidence Hospitalerum or plasma anion gap determinationOrdered By: Sarah Childress on 92-93-0913Ftdck gap [Moles/Vol]14.2 mmol/LNormal6.0-15.0Grant HospitalComment on above:Performed By: #### SARAHG, LULONUAPLUS #### [facility] [address] [place] [address] USASmudge cell detectionOrdered By: Sarah Childress on 27-86-9264Guaxda cells LM Ql (Bld)The MetroHealth Systemodium [Moles/volume] in Serum or PlasmaOrdered By: Sarah Childress on 04-02-2023 Sodium [Moles/Vol]137 mmol/KAqwpsz553-830TqncqjqfsGrant Hospital Comment on above:Performed By: #### SARAHG, LULONUAPLUS #### [facility] [address] [place] [address] USASpecific gravity Auto test strip (U) [Rel density]Ordered By: Sarah Childress on 78-84-8762Vqhijzqb gravity (U) [Rel density]1.018 1.001-1.030[facility] Children's Hospitalquamous epithelial cells detection in urine sediment by light microscopyOrdered By: Sarah Childress on 04-02-2023 Epithelial cells.squamous LM Ql (Urine sed)3-4 [HPF]0-2FUK HealthcareToxic leukocyte vacuolation detectionOrdered By: Sarah Childress on 28-22-2688Duaxmgxhg toxic vacuoles LM Ql (Bld)[facility] Memorial HospitalUrea nitrogen [Mass/volume] in Serum or PlasmaOrdered By: Sarah Childress on 08-30-6199Fdur nitrogen [Mass/Vol]9 mg/dLNormal7-25Grant HospitalComment on above:Performed By: #### AUSTIN, ADDONUAPLUS #### [facility] [address] [place] [address] USAUrine bacteria detection by automated methodOrdered By: Sarah Childress on 15-47-7892Nifkhjhb Auto Ql (U)None seenNone SeenGrant HospitalUrine clarity by refractometry automatedOrdered By: Sarah Childress on 64-34-2040Pkhksyz Refractometry automated (U)ClearClear Grant HospitalUrine glucose measurement by automated test strip (mass/volume)Ordered By: Sarah Childress on 24-51-3990Jqnsaya Auto test strip (U) [Mass/Vol]Normal mg/dLNormOhioHealthUrine hemoglobin detection by automated test stripOrdered By: Sarah Childress on 04-32-9028Anclogzekf Auto test strip Ql (U)3+NegativeGrant HospitalUrine leukocyte esterase detection by automated test stripOrdered By: Sarah Childress on 28-13-3077Xgmpsvpbg esterase Auto test strip Ql (U)1+ NegativeGrant HospitalUrine pH measurement by automated test stripOrdered By: Sarah Childress on 24-01-6672zD (U)6.0 [pH]Normal5.0-9.0 Grant HospitalComment on above:Order Comment: Name Collection Type:: Clean-Voided MidstreamPerformed By: #### UHCG, ADDONUAPLUS #### [facility] [address] [place] [id number] USAUrobilinogen Auto test strip (U) [Mass/Vol]Ordered By: Sarah Childress on 54-23-3739Iwyctqwgkqcp (U) [Mass/Vol]Normal mg/dLNoal Grant HospitalAlanine aminotransferase [Enzymatic activity/volume] in Serum or PlasmaOrdered By: Sarah Childress on 37-86-5892IJN [Catalytic activity/Vol]14 U/LNormal7-52Grant HospitalComment on above:Performed By: #### BMP, LIPASE, HEPATIC #### [facility] [address] [place] [id number] USAAlbumin [Mass/volume] in Serum or Plasma by Bromocresol green (BCG) dye binding methoOrdered By: Sarah Childress on 19-62-2199Gvdbjho BCG dye [Mass/Vol]4.0 g/dL3.5-5.7FUK HealthcareAlkaline phosphatase [Enzymatic activity/volume] in Serum or PlasmaOrdered By: Sarah Childress on 58-18-2631QMZ [Catalytic activity/Vol]61 U/AFtmpjf89-289MdegwvsdlGrant HospitalComment on above:Performed By: #### BMP, LIPASE, HEPATIC #### [facility] [address] [place] [address] USAAspartate aminotransferase [Enzymatic activity/volume] in Serum or PlasmaOrdered By: Sarah Arangoarthy on 00-08-1087AWN [Catalytic activity/Vol]19 U/KClaisq35-68GddtxqvjaGrant HospitalComment on above: Performed By: #### BMP, LIPASE, HEPATIC #### [facility] [address] [place] [address] USAAutomated basophil %Ordered By: Sarahsil Childress on 66-11-4725Krqvhnype/100 WBC (Bld)1.3 %Normal.[facility] Comment on above:Performed By: #### UHCG, ADDONUAPLUS #### [place] [address] USAAutomated basophil countOrdered By: Sarah Childress on 78-55-9607Ckjahwfgr (Bld) [#/Vol]0.1 10*3/uLNormal0.0-0.2FUK HealthcareComment on above:Result Comment: PERFORMED BY: [place] [address] PATHOLOGIST PIERCING MILL OPERATOR FARNAZ ZULETA M.D.Performed By: #### UHCG, ADDONUAPLUS #### [place] [address] USAAutomated blood monocyte countOrdered By: Sarah Childress on 32-13-2909Nlsgmwsxi (Bld) [#/Vol]0.6 10*3/uLNormal0.0-0.8Grant HospitalComment on above:Performed By: #### UHCG, ADDONUAPLUS #### [place] [address] USAAutomated eosinophil %Ordered By: Sarah Childress on 35-69-1397Uufvbwdoisg/100 WBC (Bld)1.8 %Normal.[facility] Comment on above:Performed By: #### UHCG, ADDONUAPLUS #### [place] [address] USAAutomated eosinophil countOrdered By: Sarah Arangoarthy on 29-00-6710Bjcoxkcilyw (Bld) [#/Vol]0.1 10*3/uLNormal0.0-0.45Grant HospitalComment on above:Performed By: #### UHCG, ADDONUAPLUS #### [place] [address] USAAutomated monocyte %Ordered By: Sarah Arangoarthy on 82-33-9008Zukxtvmbs/100 WBC (Bld)7.3 %Normal.[facility] Comment on above:Performed By: #### UHCG, ADDONUAPLUS #### [place] [address] USAAutomated neutrophil %Ordered By: Sarah Monroe on 06-61-7855Jmkvtugmbpm/100 WBC (Bld)46.8 %Normal.Grant HospitalComment on above:Performed By: #### UHCG, ADDONUAPLUS #### [place] [address] USAAutomated urine color determinationOrdered By: Sarah Monroe on 23-59-9107Yrsjr (U)YellowNormalYellowGrant HospitalComment on above:Order Comment: Name Collection Type:: Clean-Voided MidstreamPerformed By: #### HCGQNT #### [place] [address] USABasic Metabolic Panelon 07-21-2125Haarumibev Clr Calc Vvewtxse[address] Physician GroupComment on above:Performed By: #### BMP, LIPASE, HEPATIC #### [place] [address] USAGFR/1.73 sq M.predicted MDRD (S/P/Bld) [Vol rate/Area] mL/min/{1.73_m2}NormalThe Critical Access Hospital Physician [facility] Medical CenterComment on above:Performed By: #### BMP, LIPASE, HEPATIC #### [place] [address] USABilirubin Test strip Ql (U)Ordered By: Sarah Childress on 20-94-1407Xxmwadlrg Ql (U)NegativeNegativeGrant Hospital Bilirubin.direct [Mass/volume] in Serum or PlasmaOrdered By: Sarah Childress on 94-17-8766Duvionmuh.direct [Mass/Vol]0.10 mg/dL0.03-0.18FUK HealthcareBilirubin.total [Mass/volume] in Serum or PlasmaOrdered By: Sarah Childress on 63-06-4193Vwdtzsrsm [Mass/Vol]0.3 mg/dLNormal0.3-1.0 Grant HospitalComment on above:Performed By: #### BMP, LIPASE, HEPATIC #### [facility] [address] [place] [id number] USACT abdomen pelvis w conon 41-54-6071BY abdomen pelvis w [facility] [place] [address] [place] [address] CT Scan Report Signed Patient: Antonia Noyola MR#: [id number] 757 : 1985 Acct:[id number] Age/Sex: 38 / F ADM Date: 03/29/23 Loc: Room: [address] [place] [address] Type: ADM IN Attending Dr: Christi Aquino [...] Alesha Tejada M.D.03/29/2023 7:14 AM Dictation Location: [place] [address] Transcribed By: AMBER 03/29/23 0714 Dictated By: Alesha Tejada MD 03/29/23 0710 Signed By: 03/29/23 0714[facility] Physician GroupCalcium [Mass/volume] in Serum or PlasmaOrdered By: Sarah Childress on 26-72-6566Zbfhbir [Mass/Vol]8.9 mg/dL Normal8.6-10.3FUK HealthcareComment on above:Performed By: #### BMP, LIPASE, HEPATIC #### [facility] [address] [place] [address] USACarbon dioxide, total [Moles/volume] in Serum or Plasma Ordered By: Sarah Childress on 17-97-9259EP4 [Moles/Vol]22.2 mmol/LNormal 21.0-31.0Grant HospitalComment on above:Performed By: #### BMP, LIPASE, HEPATIC #### [facility] [address] [place] [address] USAChloride [Moles/volume] in Serum or PlasmaOrdered By: Sarah Childress on 62-43-5242Qpwimmvh [Moles/Vol]107 mmol/JOewxea28-008 Grant HospitalComment on above:Performed By: #### BMP, LIPASE, HEPATIC #### [facility] [address] [place] [address] USAComplete Blood Count Auto Diffon 10-00-6778Mdao Corpuscular HGB Conc32.0 g/xBEblixp87.0-35.0The Critical Access Hospital Physician GroupComment on above:Performed By: #### UHCG, ADDONUAPLUS #### [place] [address] USANRBC%0.1 /100{WBC}Normal0-0.5The [facility] Physician Group Comment on above:Performed By: #### UHCG, ADDONUAPLUS #### [place] [address] USACreatinine [Mass/volume] in Serum or PlasmaOrdered By: Sarah Childress on 76-99-1114Alufsozzqt [Mass/Vol]0.63 mg/dLNormal0.60-1.20 Grant HospitalComment on above:Performed By: #### BMP, LIPASE, HEPATIC #### [place] [address] USAErythrocyte distribution width [Ratio] by Automated count Ordered By: Sarah Childress on 67-80-9658Crbqxyahejt distribution width (RBC) [Ratio]15.2 %Nxwlnz94.9-15.3FUK HealthcareComment on above: Performed By: #### UHCG, ADDONUAPLUS #### [place] [address] USAErythrocytes [#/volume] in Blood by Automated countOrdered By: Sarah Childress on 17-50-9475NOE (Bld) [#/Vol]4.34 10*6/uLNormal3.60-5.00 Grant HospitalComment on above:Performed By: #### UHCG, ADDONUAPLUS #### [place] [address] USAGlucose [Mass/volume] in Serum or PlasmaOrdered By: Sarah Childress on 61-90-2797Lkdxxlh [Mass/Vol]90 mg/tOFfgwia00-044FosrfpzypGrant HospitalComment on above:ADA recommended reference rangeRandom Glucose Reference Range is dependent on time and content of last meal. Glucose of more than 200 mg/dL in a nonstressed, ambulatory subject supports the diagnosisof Diabetes Mellitus.Result Comment: Random Glucose Reference Range is dependent on time and content of last meal. Glucose of more than 200 mg/dL in a nonstressed, ambulatory subject supports the diagnosis of Diabetes Mellitus. ADA recommended reference rangePerformed By: #### BMP, LIPASE, HEPATIC #### [place] [address] USAHCG ( test) IA.rapid Ql (U)Ordered By: Sarah Childress on 97-48-0466CGT ( test) Ql (U)NegativeGrant HospitalHCG,Urineon 34-49-5651Bykk HCG ( test) Ql (U)Negative NormalThe Critical Access Hospital Physician GroupComment on above:Order Comment: Name Collection Type:: Clean-Voided MidstreamResult Comment: PERFORMED BY: [place] [address] PATHOLOGIST PIERCING MILL OPERATOR FARNAZ ZULETA M.D.Performed By: #### HCGQNT #### [place] [address] USAHematocrit [Volume Fraction] of Blood by Automated count Ordered By: Sarah Childress on 64-28-2395Awtvdrcari (Bld) [Volume fraction]32.6 %Low34.0-46.4FUK HealthcareComment on above:Performed By: #### UHCG ADDONUAPLUS #### [place] [id number] USAHemoglobin [Mass/volume] in BloodOrdered By: Sarah Childress on 65-03-9859Ohdaidjuah (Bld) [Mass/Vol]10.4 g/dLLow11.8-15.4FUK HealthcareComment on above:Performed By: #### UHCG, ADDONUAPLUS #### [place] [id number] USAHepatic Panelon 90-74-6972Uqmiwto [Mass/Vol]4.0 g/dLNormal 3.5-5.7The Critical Access Hospital Physician GroupComment on above:Performed By: #### BMP, LIPASE, HEPATIC #### [place] [address] USABilirubin,Indirect0.2 mg/dLNormalThe Critical Access Hospital Physician [facility] Medical CenterComment on above:Performed By: #### BMP, LIPASE, HEPATIC #### [facility] [address] [place] [address] USABilirubin.indirect [Mass/Vol]0.10 mg/dLNormal0.03-0.18The [facility] Access Hospital Physician [facility] CenterComment on above:Performed By: #### BMP, LIPASE, HEPATIC #### [place] [address] USAKetones Auto test strip (U) [Mass/Vol]Ordered By: Sarah Childress on 04-34-7724Etzvkdq (U) [Mass/Vol]NegativeNegativeGrant HospitalLactate [Moles/volume] in Serum or PlasmaOrdered By: Megan Muniz on 93-01-6187Mlmuygv [Moles/Vol]0.8 mmol/LNormal0.5-2.2FUK HealthcareComment on above:Result Comment: PERFORMED BY: [place] [address] PATHOLOGIST PIERCING MILL OPERATOR FARNAZ ZULETA M.D.Performed By: #### HCGQNT #### [place] [address] USALeukocytes [#/volume] corrected for nucleated erythrocytes in Blood by Automated counOrdered By: Sarah Childress on 00-45-8324XTD corrected for nucl RBC Auto (Bld) [#/Vol]7.5 10*3/uL3.8-11.6FUK HealthcareLeukocytes [#/volume] in Blood by Automated countOrdered By: Sarah Childress on 81-48-0178AEY (Bld) [#/Vol]7.5 10*3/uLNormal3.8-11.6 Grant HospitalComment on above:Performed By: #### UHCG, ADDONUAPLUS #### [facility] [address] [place] [address] USALipase [Enzymatic activity/volume] in Serum or Plasma Ordered By: Sarah Childress on 01-91-9198Zygjse [Catalytic activity/Vol]30.0 U/PGarrah98.0-82.0Grant HospitalComment on above:Result Comment: PERFORMED BY: [place] [address] PATHOLOGIST PIERCING MILL OPERATOR FARNAZ ZULETA M.D.Performed By: #### BMP, LIPASE, HEPATIC #### [facility] [address] [place] [address] USALymphocytes [#/volume] in Blood by Automated countOrdered By: Sarah Childress on 31-35-7674Xkjbmznfqzf (Bld) [#/Vol]3.2 10*3/uLNormal 1.00-4.8Grant HospitalComment on above:Performed By: #### UHCG, ADDONUAPLUS #### [facility] [address] [place] [address] USALymphocytes/100 leukocytes in Blood by Automated count Ordered By: Sarah Childress on 96-04-7034Wgxqyzmppyl/100 WBC (Bld)42.8 %Normal. Grant HospitalComment on above:Performed By: #### UHCG, ADDONUAPLUS #### [facility] [address] [place] [address] [Entitic mass] by Automated countOrdered By: Sarah Childress on 54-03-4334RWD (RBC) [Entitic mass]24.1 pgLow24.7-34.3FUK HealthcareComment on above:Performed By: #### UHCG, ADDONUAPLUS #### [facility] [address] [place] [address] Auto (RBC) [Mass/Vol]Ordered By: Sarah Childress on 54-32-9055DGMJ (RBC) [Mass/Vol]32.0 g/dL32.0-35.0Grant HospitalMCV [Entitic volume] by Automated countOrdered By: Sarah Childress on 63-24-7259NOR (RBC) [Entitic vol]75.2 bEGid20-272YagyrpxiiGrant HospitalComment on above:Performed By: #### UHCG, ADDONUAPLUS #### [facility] [address] [place] [address] USANeutrophils [#/volume] in Blood by Automated countOrdered By: Sarah Childress on 73-70-8524Rsnwviczycn (Bld) [#/Vol]3.5 10*3/uLNormal 1.8-7.7FUK HealthcareComment on above:Performed By: #### UHCG, LULONUAPLUS #### [place] [address] USANitrite Test strip Ql (U)Ordered By: Sarah Childress on 23-50-9022Mtlwexj Ql (U)NegativeNegativeGrant HospitalNo Panel InformationOrdered By: Sarah Childress on 01-25-9118Jpzcvrzvr GFR (CKD-EPI)> 60.0 mL/MinGrant HospitalPharmacy Creatinine Clearance (Leoi936.47Grant HospitalNucleated erythrocytes [Presence] in Blood by Automated countOrdered By: Sarah Childress on 03-29-2023 Nucleated RBC Auto Ql (Bld)0.1 /100{WBC}0-0.5F[facility] Healthcare Platelet mean volume [Entitic volume] in Blood by Automated countOrdered By: Sarah Childress on 33-78-8046Tbnuiboq mean volume (Bld) [Entitic vol]8.0 fL Normal6.3-10.7FUK HealthcareComment on above:Performed By: #### UHCG, ADDONUAPLUS #### [facility] [address] [place] [address] USAPlatelets [#/volume] in Blood by Automated countOrdered By: Sarah Childress on 16-37-6648Ortewjvgf (Bld) [#/Vol]396 10*3/uLNormal 150-450Grant HospitalComment on above:Performed By: #### UHCG, ADDONUAPLUS #### [place] [address] USAPotassium [Moles/volume] in Serum or PlasmaOrdered By: Sarah Childress on 58-84-4046Elhbchxiz [Moles/Vol]3.6 mmol/LNormal3.5-5.1 Grant HospitalComment on above:Performed By: #### BMP, LIPASE, HEPATIC #### [place] [address] USAProtein Auto test strip (U) [Mass/Vol]Ordered By: Sarah Childress on 97-90-6587Bitatnj (U) [Mass/Vol]NegativeNegativeGrant HospitalProtein [Mass/volume] in Serum or PlasmaOrdered By: Sarah Childress on 92-23-1785Aoffdmi [Mass/Vol]6.8 g/dLNormal6.4-8.9Grant HospitalComment on above:Performed By: #### BMP, LIPASE, HEPATIC #### [place] [address] USASerum globulin measurement by calculation (mass/volume) Ordered By: Sarah Childress on 02-30-7094Enlvtrfi (S) [Mass/Vol]2.8 g/dLNormal Grant HospitalComment on above:Performed By: #### BMP, LIPASE, HEPATIC #### [place] [address] USASerum or plasma albumin/globulin mass ratioOrdered By: Sarah Childress on 10-53-4978Kgkroxk/Globulin [Mass ratio]1.4 {ratio}Normal Grant HospitalComment on above:Performed By: #### BMP, LIPASE, HEPATIC #### [place] [address] USASerum or plasma anion gap determinationOrdered By: Sarah Childress on 15-18-5959Klgdc gap [Moles/Vol]12.4 mmol/LNormal6.0-15.0Grant HospitalComment on above:Performed By: #### BMP, LIPASE, HEPATIC #### [facility] [address] [place] [address] USASerum or plasma non-glucuronidated bilirubin measurement (mass/volume)Ordered By: Sarah Childress on 14-58-4150Hxwglryyl.indirect [Mass/Vol]0.2 mg/dLAkron Children's Hospitalodium [Moles/volume] in Serum or PlasmaOrdered By: Sarah Childress on 22-23-8130Ofyahz [Moles/Vol]138 mmol/PKwntid107-382FjqhadpkiGrant HospitalComment on above:Performed By: #### BMP, LIPASE, HEPATIC #### [place] [id number] USASpecific gravity Auto test strip (U) [Rel density]Ordered By: Sarah Childress on 61-45-6764Bsgyatir gravity (U) [Rel density]1.003 1.001-1.030Grant HospitalUS transvaginalon 82-93-8908KX transvaginalCRYSTAL CL[facility] [place] [address] [place] [address] Ultrasound Report Signed Patient: Antonia Noyola MR#: [id number] 757 : 1985 Acct:[id number] Age/Sex: 38 / F ADM Date: 03/29/23 Loc: Room: [address] [place] [address] Type: ADM IN Attending Dr: Christi Aquino MD Ordering Provider: Sarah Childress DO Date of Service: 03/29/23 US/US transvaginal: r/o L ovarian torsion ([id number]) US/US pelvic complete: PAIN Copies to: DO [...] Davi Figueroa M.D.03/29/2023 8:20 AM Dictation Location: [place] [address] Tech: Brooke Hodge Transcribed By: [facility] 03/29/[address]19 Dictated By: Davi Figueroa DO 03/29/2316 Signed By: 03/29/23819[facility] Physician GroupUrea nitrogen [Mass/volume] in Serum or PlasmaOrdered By: Sarah Childress on 19-50-5100Mxzt nitrogen [Mass/Vol]6 mg/dLLow01-04Grant HospitalComment on above: Performed By: #### BMP, LIPASE, HEPATIC #### [facility] [address] [place] [id number] USAUrinalysison 73-46-3949Rorewtamtl (U)ClearNormalClearOrlando Health South Lake Hospital Physician GroupComment on above:Order Comment: Name Collection Type:: Clean-Voided MidstreamPerformed By: #### HCGQNT #### [facility] [address] [place] [address] USABilirubin,UrineNegativeNormalNegativeOrlando Health South Lake Hospital Physician GroupComment on above:Order Comment: Name Collection Type:: Clean- Voided MidstreamPerformed By: #### HCGQNT #### [facility] [address] [place] [address] USAGlucose Ql (U)NormalNormalNormHCA Florida Memorial Hospital Physician GroupComment on above:Order Comment: Name Collection Type:: Clean-Voided MidstreamPerformed By: #### HCGQNT #### [facility] [address] [place] [address] USAKetones Ql (U)NegativeNormalNegativeThe Critical Access Hospital Physician GroupComment on above:Order Comment: Name Collection Type:: Clean- Voided MidstreamPerformed By: #### HCGQNT #### [place] [address] USALeukocyte esterase Test strip Ql (U)NegativeNormalNegative The Critical Access Hospital Physician GroupComment on above:Order Comment: Name Collection Type:: Clean-Voided MidstreamPerformed By: #### HCGQNT #### [place] [address] USANitrite,UrineNegativeNormalNegativeOrlando Health South Lake Hospital Physician GroupComment on above:Order Comment: Name Collection Type:: Clean-Voided MidstreamPerformed By: #### HCGQNT #### [place] [address] USAOccult Blood,UrineNegativeNormalNegativeOrlando Health South Lake Hospital Physician GroupComment on above:Order Comment: Name Collection Type:: Clean- Voided MidstreamPerformed By: #### HCGQNT #### [place] [address] USAProtein,UrineNegativeNormalNegativeOrlando Health South Lake Hospital Physician GroupComment on above:Order Comment: Name Collection Type:: Clean-Voided MidstreamPerformed By: #### HCGQNT #### [place] [address] USASpecificy [place],Urine1.374Dbpvhk3.001-1.030The Critical Access Hospital Physician GroupComment on above:Order Comment: Name Collection Type:: Clean- Voided MidstreamPerformed By: #### HCGQNT #### [place] [address] USAUrobilinogen,UrineNormalNormalNormalThe Critical Access Hospital Physician GroupComment on above:Order Comment: Name Collection Type:: Clean- Voided MidstreamPerformed By: #### HCGQNT #### [place] [address] USAUrine clarity by refractometry automatedOrdered By: Sarah Childress on 37-73-5935Efnuzep Refractometry automated (U)ClearClear Grant HospitalUrine glucose measurement by automated test strip (mass/volume)Ordered By: Sarah Childress on 61-28-1685Htvmkux Auto test strip (U) [Mass/Vol]Normal mg/dLNormalGrant HospitalUrine hemoglobin detection by automated test stripOrdered By: Sarah Childress on 18-49-5996Aeqsnmsufn Auto test strip Ql (U)NegativeNegCleveland Clinic Lutheran HospitalUrine leukocyte esterase detection by automated test stripOrdered By: Sarah Cihldress on 89-04-0123Tfkswqtgo esterase Auto test strip Ql (U) NegativeNegCleveland Clinic Lutheran HospitalUrine pH measurement by automated test stripOrdered By: Sarah Childress on 77-41-9853qY (U)7.5 [pH] Normal5.0-9.0Grant HospitalComment on above:Order Comment: Name Collection Type:: Clean-Voided MidstreamPerformed By: #### HCGQNT #### [facility] [address] [place] [id number] USAUrobilinogen Auto test strip (U) [Mass/Vol]Ordered By: Sarah Childress on 98-75-7744Pvgpxdijjdlu (U) [Mass/Vol]Normal mg/dLNoToledo HospitalAutomated urine color determinationOrdered By: Elier Jackson on 30-13-3887Foaft (U)YellowNoalYUniversity Hospitals Elyria Medical CenterComment on above:Order Comment: Name Collection Type:: Clean-Voided MidstreamPerformed By: #### UA, UHCG #### [facility] [address] [place] [id number] USABilirubin Test strip Ql (U)Ordered By: Elier Jackson on 91-89-1294Yhrmyvkeb Ql (U)NegativeNegCleveland Clinic Lutheran HospitalCT abdomen pelvis w conon 85-07-8662TI abdomen pelvis [place] [facility] [place] [address] [place] Scan Report Signed Patient: Antonia Noyola MR#: [id number] 757 : 1985 Acct:[id number] Age/Sex: 38 / F ADM Date: 02/05/23 Loc: ER Room: Type: [facility] ER Attending Dr: Copies to: Elier [...] Uterus is grossly unremarkable. No adnexal mass.] Peritoneum/Retroperitoneum:No free air, free fluid or lymphadenopathy.[ Abd wall/Bones:Abdominal wall demonstrates no acute findings. Osseous structures demonstrate degenerative change.[ CT/CT abdomen pelvis w con IMPRESSION: No acute findings. Impression dictated by: Dennis Betancur Jr., D.OEbenezer02/06/2023 11:23 AM Dictation Location: [place] [address] Transcribed By: [facility] 02/06/23 1123 Dictated By: Dennis Betancur Jr, DO 02/06/23 1109 Signed By: 02/06/23 1123NoPending sale to [facility] Physician GroupHCG ( test) IA.rapid Ql (U)Ordered By: Elier Jackson on 14-82-0886ECE ( test) Ql (U)Negative Grant HospitalHCG,Urineon 37-68-0788Ipne HCG ( test) Ql (U)NegativeNoPending sale to [facility] Physician GroupComment on above:Order Comment: Name Collection Type:: Clean-Voided MidstreamResult Comment: PERFORMED BY: [place] [address] [place] [address] PATHOLOGIST PIERCING MILL OPERATOR FARNAZ ZULETA M.D.Performed By: #### UA, [facility] #### [place] [id number] USAKetones Auto test strip (U) [Mass/Vol]Ordered By: Elier Jackson on 82-94-8577Lbylvqq (U) [Mass/Vol]NegativeNegCleveland Clinic Lutheran HospitalNitrite Test strip Ql (U)Ordered By: Elier Jackson on 02-06-2023 Nitrite Ql (U)NegativeNegCleveland Clinic Lutheran HospitalProtein Auto test strip (U) [Mass/Vol]Ordered By: Elier Jackson on 78-37-3350Tdgjfjy (U) [Mass/Vol]NegativeNegCleveland Clinic Lutheran Hospitalpecific gravity Auto test strip (U) [Rel density]Ordered By: Elier Jackson on 20-28-5794Pedojgjg gravity (U) [Rel density]1.0071.001-1.030Grant HospitalUS pelvic completeon 25-20-5087XX pelvic completeCRYSTAL CLINIC ORTHOPEDIC C[facility] Main [place] [id number] Ultrasound Report Signed Patient: Antonia Noyola MR#: [id number] 757 : 1985 Acct:[id number] Age/Sex: 38 / F ADM Date: 02/05/23 Loc: ER Room: Type: [facility] ER Attending Dr: Ordering Provider: Elier Jackson DO Date of Service: 02/06/23 US/US pelvic complete: adnexa pain ([id number]) US/US transvaginal: . Copies to: Elier Jackson [...] Betancur Jr., D.O.02/06/2023 11:25 AM Dictation Location: [place] [address] Tech: Jada Webb Transcribed By: [facility] 02/06/23 1125 Dictated By: Dennis Betancur Jr, DO 02/06/23 1123 Signed By: 02/06/23 1125St[facility] Mary's HospitalUrinalysison 02-06-2023 Appearance (U)ClearNormalClearThe Critical Access Hospital Physician [facility] CenterComment on above: Order Comment: Name Collection Type:: Clean-Voided MidstreamPerformed By: #### UA, UHCG #### [facility] [address] [place] [id number] USABilirubin,UrineNegativeNormalNegativeOrlando Health South Lake Hospital Physician GroupComment on above:Order Comment: Name Collection Type:: Clean- Voided MidstreamPerformed By: #### UA, UHCG #### [facility] [address] [place] [address] USAGlucose Ql (U)NormalNormalNormHCA Florida Memorial Hospital Physician GroupComment on above:Order Comment: Name Collection Type:: Clean-Voided MidstreamPerformed By: #### UA, UHCG #### [facility] [address] [place] [address] USAKetones Ql (U)NegativeNormalNegativeOrlando Health South Lake Hospital Physician GroupComment on above:Order Comment: Name Collection Type:: Clean- Voided MidstreamPerformed By: #### UA, UHCG #### [facility] [address] [place] [address] USALeukocyte esterase Test strip Ql (U)NegativeNormalNegative [facility] Physician GroupComment on above:Order Comment: Name Collection Type:: Clean-Voided MidstreamPerformed By: #### UA, UHCG #### [facility] [address] [place] [address] USANitrite,UrineNegativeNormalNegativeOrlando Health South [facility] Hospital Physician GroupComment on above:Order Comment: Name Collection Type:: Clean-Voided MidstreamPerformed By: #### UA, UHCG #### [facility] [address] [place] [id number] USAOccult Blood,UrineNegativeNormalNegativeThe Critical Access Hospital Physician GroupComment on above:Order Comment: Name Collection Type:: Clean- Voided MidstreamPerformed By: #### UA, UHCG #### [place] [id number] USAProtein,UrineNegativeNormalNegativeThe Critical Access Hospital Physician GroupComment on above:Order Comment: Name Collection Type:: Clean-Voided MidstreamPerformed By: #### UA, UHCG #### [place] [address] USASpecificy [place],Urine1.583Zbajuv8.001-1.030The Critical Access Hospital Physician GroupComment on above:Order Comment: Name Collection Type:: Clean- Voided MidstreamPerformed By: #### UA, UHCG #### [facility] [address] [place], [place] [address] USAUrobilinogen,UrineNormalNormalNormalThe Critical Access Hospital Physician GroupComment on above:Order Comment: Name Collection Type:: Clean- Voided MidstreamPerformed By: #### UA, UHCG #### [facility] [address] [place], [place] [address] USAUrine clarity by refractometry automatedOrdered By: Elier Jackson on 21-68-4099Wdnrdbc Refractometry automated (U)ClearCleFirelands Regional Medical Center South CampusUrine glucose measurement by automated test strip (mass/volume)Ordered By: Elier Jackson on 18-49-7876Xnozkwh Auto test strip (U) [Mass/Vol]Normal mg/dLNoLake County Memorial Hospital - WestUrine hemoglobin detection by automated test stripOrdered By: Elier Jackson on 02-06-2023 Hemoglobin Auto test strip Ql (U)NegativeNegCleveland Clinic Lutheran HospitalUrine leukocyte esterase detection by automated test stripOrdered By: Elier Jackson on 43-76-3805Djwmfdmqb esterase Auto test strip Ql (U)Negative NegativeGrant HospitalUrine pH measurement by automated test stripOrdered By: Elierjaqui Jackson on 56-78-5156qA (U)7.0 [pH]Normal5.0-9.0Grant HospitalComment on above:Order Comment: Name Collection Type:: Clean-Voided MidstreamPerformed By: #### [facility], [facility] #### [facility] [address] [place] [address] USAUrobilinogen Auto test strip (U) [Mass/Vol]Ordered By: Elier Jackson on 98-36-2625Slpavmrluwxc (U) [Mass/Vol]Normal mg/dLNormalGrant HospitalAlanine aminotransferase [Enzymatic activity/volume] in Serum or PlasmaOrdered By: Elier Jackson on 50-88-6223ASB [Catalytic activity/Vol]13 U/LNormal7-52Grant HospitalComment on above: Performed By: #### HCGQNT #### [place] [address] USAAlbumin [Mass/volume] in Serum or Plasma by Bromocresol green (BCG) dye binding methoOrdered By: Elier Jackson on 67-35-7495Opgeort BCG dye [Mass/Vol]4.2 g/dL3.5-5.7FUK HealthcareAlkaline phosphatase [Enzymatic activity/volume] in Serum or PlasmaOrdered By: Elier Jackson on 76-47-4116AWU [Catalytic activity/Vol]52 U/YLcqvma23-120JefjxknfpGrant HospitalComment on above:Performed By: #### HCGQNT #### [facility] [address] [place] [id number] USAAspartate aminotransferase [Enzymatic activity/volume] in Serum or PlasmaOrdered By: Elier Jackson on 20-10-6967KYC [Catalytic activity/Vol]12 U/QKgr79-77LutxxdjmuGrant HospitalComment on above: Performed By: #### HCGQNT #### [place] [id number] USAAutomated basophil %Ordered By: Elier Jackson on 02-05-2023 Basophils/100 WBC (Bld)1.4 %Normal.Grant HospitalComment on above:Performed By: #### HEPATIC, LIPASE, BMP, CBC #### [place] [address] USAAutomated basophil countOrdered By: Elier Jackson on 43-13-2206Wlzxcykim (Bld) [#/Vol]0.1 10*3/uLNormal0.0-0.2FUK HealthcareComment on above:Result Comment: PERFORMED BY: [place] [address] PATHOLOGIST PIERCING MILL OPERATOR FARNAZ ZULETA M.D.Performed By: #### HEPATIC, LIPASE, BMP, CBC #### [place] [address] USAAutomated blood monocyte countOrdered By: Elier Jackson on 65-63-8115Ybgzhwxlm (Bld) [#/Vol]0.7 10*3/uLNormal0.0-0.8Grant HospitalComment on above:Performed By: #### HEPATIC, LIPASE, BMP, CBC #### [place] [address] USAAutomated eosinophil %Ordered By: Elier Jackson on 33-10-1155Tjzwjrpzvcv/100 WBC (Bld)1.5 %Normal.[facility] Comment on above:Performed By: #### HEPATIC, LIPASE, BMP, CBC #### [place] [address] USAAutomated eosinophil countOrdered By: Elier Jackson on 56-49-5413Slrxqkwwkzz (Bld) [#/Vol]0.1 10*3/uLNormal0.0-0.45Grant HospitalComment on above:Performed By: #### HEPATIC, LIPASE, BMP, CBC #### [place] [address] USAAutomated monocyte %Ordered By: Elier Jackson on 02-05-2023 Monocytes/100 WBC (Bld)8.4 %Normal.Grant HospitalComment on above:Performed By: #### HEPATIC, LIPASE, BMP, CBC #### [facility] [address] [place] [address] USAAutomated neutrophil %Ordered By: Elier Jackson on 25-70-5786Hzvsbplhuhr/100 WBC (Bld)44.4 %Normal.Grant HospitalComment on above:Performed By: #### HEPATIC, LIPASE, BMP, CBC #### [facility] [address] [place] [address] USABasic Metabolic Panelon 45-77-2669Wrtejjyazy Clr Calc Bzmmvnna626.62NormMercy Health [address] Elizabeth Boardman Hospitale Critical Access Hospital Physician [facility] CenterComment on above:Performed By: #### HCGQNT #### [place] [address] USAGFR/1.73 sq M.predicted MDRD (S/P/Bld) [Vol rate/Area] mL/min/{1.73_m2}NormalThe Critical Access Hospital Physician [facility] CenterComment on above:Performed By: #### HCGQNT #### [place] [address] USABilirubin.direct [Mass/volume] in Serum or PlasmaOrdered By: Elier Jackson on 75-11-1593Deafpuxaq.direct [Mass/Vol]0.10 mg/dL0.03-0.18 Grant HospitalBilirubin.total [Mass/volume] in Serum or PlasmaOrdered By: Elier Jackson on 62-81-7558Tvbsnmmnm [Mass/Vol]0.3 mg/dLNormal 0.3-1.0Grant HospitalComment on above:Performed By: #### HCGQNT #### [place] [address] USACalcium [Mass/volume] in Serum or PlasmaOrdered By: Elier Jackson on 58-71-7082Xstwkry [Mass/Vol]9.2 mg/dLNormal8.6-10.3FUK HealthcareComment on above:Performed By: #### HCGQNT #### [facility] [address] [place] [address] USACarbon dioxide, total [Moles/volume] in Serum or Plasma Ordered By: Elier Jackson on 56-32-6516AT4 [Moles/Vol]21.5 mmol/NLxzhkt39.0-31.0 Grant HospitalComment on above:Performed By: #### HCGQNT #### [facility] [address] [place] [address] USAChloride [Moles/volume] in Serum or PlasmaOrdered By: Elier Jackson on 04-95-3565Zyraqaux [Moles/Vol]107 mmol/WDrvncg85-883HczsruhtdGrant HospitalComment on above:Performed By: #### HCGQNT #### [place] [address] USAChoriogonadotropin.beta subunit [Units/volume] in Serum or PlasmaOrdered By: Elier Jackson on 16-53-4694YRU.beta subunit Qnm[IU]/mL Grant HospitalComment on above:Approximate Approximate hCG Gestational Age Range (mIU/ml) (weeks)0.2-1 5-50 1-2 50-500 2-3 100-5,000 3-4 500-10,000 4-5 1,000-50,000 5-6 10,000-100,000 6-8 15,000-200,000 8-12 10,000-100,000HCG.beta subunit QnNegativeGrant Hospital Complete Blood Count Auto Diffon 25-70-2724Wmqi Corpuscular HGB Conc31.8 g/dLLow 32.0-35.0The Critical Access Hospital Physician GroupComment on above:Performed By: #### HEPATIC, LIPASE, BMP, CBC #### [facility] [address] [place] [address] USAMonocytes/100 WBC (Bld)17.33 %Normal0.00-20.00The Critical Access Hospital Physician GroupComment on above:Performed By: #### HEPATIC, LIPASE, BMP, CBC #### [place] [address] USANRBC%0.1 /100{WBC}Normal0-0.5The [facility] Hospital Physician Group Comment on above:Performed By: #### HEPATIC, LIPASE, BMP, CBC #### [facility] [address] [place] [address] USACreatinine [Mass/volume] in Serum or PlasmaOrdered By: Elier Jackson on 12-86-3173Akhaodycsu [Mass/Vol]0.71 mg/dLNormal0.60-1.20 Grant HospitalComment on above:Performed By: #### HCGQNT #### [place] [address] USAErythrocyte distribution width [Ratio] by Automated count Ordered By: Elier Jackson on 73-75-3268Yskbszqoexo distribution width (RBC) [Ratio]15.9 %High11.9-15.3FUK HealthcareComment on above: Performed By: #### HEPATIC, LIPASE, BMP, CBC #### [place] [address] USAErythrocytes [#/volume] in Blood by Automated countOrdered By: Elier Jackson on 86-42-7997EJW (Bld) [#/Vol]4.78 10*6/uLNormal3.60-5.00 Grant HospitalComment on above:Performed By: #### HEPATIC, LIPASE, BMP, CBC #### [place] [address] USAGlucose [Mass/volume] in Serum or PlasmaOrdered By: Elier Jackson on 68-99-1219Bfxnirb [Mass/Vol]99 mg/hRDmzmai03-973UgjhgesbsGrant HospitalComment on above:ADA recommended reference rangeRandom Glucose Reference Range is dependent on time and content of last meal. Glucose of more than 200 mg/dL in a nonstressed, ambulatory subject supports the diagnosisof Diabetes Mellitus.Result Comment: Random Glucose Reference Range is dependent on time and content of last meal. Glucose of more than 200 mg/dL in a nonstressed, ambulatory subject supports the diagnosis of Diabetes Mellitus. ADA recommended reference rangePerformed By: #### HCGQNT #### [place] [id number] USAHCG,Qualitative Serumon 38-66-0018LPF,Qualitative Serum NegativeNormalThClearwater Valley Hospital Physician [facility] CenterComment on above:Result Comment: PERFORMED BY: [place] [address] PATHOLOGIST PIERCING MILL OPERATOR FARNAZ ZULETA M.D.Performed By: #### UHCG, ADDONUAPLUS #### [place] [address] USAHCG,Quantitativeon 52-75-6401SZH,Quantitative< 0.60Normal [facility] Physician [facility] CenterComment on above:Result Comment: Approximate Approximate hCG Gestational Age Range (mIU/ml) (weeks) 0.2-1 5-50 1-2 50-500 2-3 100-5,000 3-4 500-10,000 4-5 1,000-50,000 5-6 10,000-100,000 6-8 15,000-200,000 8-12 10,000-100,000 PERFORMED BY: [place] [address] PATHOLOGIST PIERCING MILL OPERATOR FARNAZ ZULETA M.D.Performed By: #### HCGQNT #### [place] [id number] USAHematocrit [Volume Fraction] of Blood by Automated count Ordered By: Elier Jackson on 78-10-6294Qvsebgialc (Bld) [Volume fraction]37.3 % Ynldni74.0-46.4FUK HealthcareComment on above:Performed By: #### HEPATIC, LIPASE, BMP, CBC #### [place] [id number] USAHemoglobin [Mass/volume] in BloodOrdered By: Elier Jackson on 99-59-5484Ddzkiqayht (Bld) [Mass/Vol]11.8 g/rEHynpwc05.8-15.4FUK HealthcareComment on above:Performed By: #### HEPATIC, LIPASE, BMP, CBC #### [address] [place] [address] USAHepatic Panelon 41-81-6025Opgcndt [Mass/Vol]4.2 g/dLNormal 3.5-5.7[facility] Physician [facility] CenterComment on above:Performed By: #### HCGQNT #### [place] [address] USABilirubin,Indirect0.2 mg/dLNormalThe [facility] Physician [facility] CenterComment on above:Performed By: #### HCGQNT #### [place] [address] USABilirubin.indirect [Mass/Vol]0.10 mg/dLNormal0.03-0.18[facility] Physician [facility] CenterComment on above:Performed By: #### HCGQNT #### [place] [address] USALeukocytes [#/volume] corrected for nucleated erythrocytes in Blood by Automated counOrdered By: Elier Jackson on 97-13-0095JRY corrected for nucl RBC Auto (Bld) [#/Vol]8.1 10*3/uL3.8-11.6FUK HealthcareLeukocytes [#/volume] in Blood by Automated countOrdered By: Elier Jackson on 74-28-8807KMU (Bld) [#/Vol]8.1 10*3/uLNormal3.8-11.6FUK HealthcareComment on above:Performed By: #### HEPATIC, LIPASE, BMP, CBC #### [facility] [address] [place] [address] USALipase [Enzymatic activity/volume] in Serum or Plasma Ordered By: Elier Jackson on 04-36-7404Hcyoth [Catalytic activity/Vol]40.0 U/L Dokepy89.0-82.0Grant HospitalComment on above:Result Comment: PERFORMED BY: [place] [address] PATHOLOGIST PIERCING MILL OPERATOR FARNAZ ZULETA M.D.Performed By: #### HCGQNT #### [address] [place] [address] USALymphocytes [#/volume] in Blood by Automated countOrdered By: Elier Jackson on 33-42-0173Zfvffxinrtb (Bld) [#/Vol]3.6 10*3/uLNormal1.00-4.8 Grant HospitalComment on above:Performed By: #### HEPATIC, LIPASE, BMP, CBC #### [facility] [address] [place] [address] USALymphocytes/100 leukocytes in Blood by Automated count Ordered By: Elier Jackson on 46-44-0398Aslgofpdhda/100 WBC (Bld)44.3 %Normal. Grant HospitalComment on above:Performed By: #### HEPATIC, LIPASE, BMP, CBC #### [place] [address] USAH [Entitic mass] by Automated countOrdered By: Elier Jackson on 76-45-4939YTK (RBC) [Entitic mass]24.8 qxIlaubv76.7-34.3FUK HealthcareComment on above:Performed By: #### HEPATIC, LIPASE, BMP, CBC #### [facility] [address] [place] [address] USAHC Auto (RBC) [Mass/Vol]Ordered By: Elier Jackson on 45-72-8237CPMH (RBC) [Mass/Vol]31.8 g/dL32.0-35.0Grant HospitalMCV [Entitic volume] by Automated countOrdered By: Elier Jackson on 42-34-1879NSL (RBC) [Entitic vol]78.1 hFSgi23-042AefzbmfgeGrant HospitalComment on above:Performed By: #### HEPATIC, LIPASE, BMP, CBC #### [place] [address] USAMonocyte distribution width [Entitic volume] in Blood by AutomatedOrdered By: Elier Jackson on 78-71-0085Monbbpub distribution width Auto (Bld) [Entitic vol]17.33 %0.00-20.00Grant HospitalNeutrophils [#/volume] in Blood by Automated countOrdered By: Elier Jackson on 02-05-2023 Neutrophils (Bld) [#/Vol]3.6 10*3/uLNormal1.8-7.7FUK HealthcareComment on above:Performed By: #### HEPATIC, LIPASE, BMP, CBC #### [facility] [address] [place] [address] USANo Panel InformationOrdered By: Elier Jackson on 02-05-2023 Estimated GFR (CKD-EPI)> 60.0 mL/MinGrant HospitalPharmacy Creatinine Clearance (Obyy241.62Grant HospitalNucleated erythrocytes [Presence] in Blood by Automated countOrdered By: Elier Jackson on 20-07-6026Juxajbsvs RBC Auto Ql (Bld)0.1 /100{WBC}0-0.5FUK HealthcarePlatelet mean volume [Entitic volume] in Blood by Automated count Ordered By: Elier Jackson on 15-37-6833Ziyxaers mean volume (Bld) [Entitic vol] 8.0 fLNormal6.3-10.7FUK HealthcareComment on above:Performed By: #### HEPATIC, LIPASE, BMP, CBC #### [facility] [address] [place] [address] USAPlatelets [#/volume] in Blood by Automated countOrdered By: Elier Jackson on 01-79-1383Jhaaweklm (Bld) [#/Vol]398 10*3/lKNiokik381-965 Grant HospitalComment on above:Performed By: #### HEPATIC, LIPASE, BMP, CBC #### [facility] [address] [place] [address] USAPotassium [Moles/volume] in Serum or PlasmaOrdered By: Elier Jackson on 42-33-8963Oefyedehf [Moles/Vol]3.4 mmol/LLow3.5-5.1FUK HealthcareComment on above:Performed By: #### HCGQNT #### [facility] [address] [place] [address] USAProtein [Mass/volume] in Serum or PlasmaOrdered By: Elier Jackson on 62-61-2703Yaihtdg [Mass/Vol]7.2 g/dLNormal6.4-8.9Grant HospitalComment on above:Performed By: #### HCGQNT #### [place] [address] USASerum globulin measurement by calculation (mass/volume) Ordered By: Elier Jackson on 52-78-9336Xmhcdptu (S) [Mass/Vol]3.0 g/dLNormal Grant HospitalComment on above:Performed By: #### HCGQNT #### [place] [address] USASerum or plasma albumin/globulin mass ratioOrdered By: Elier Jackson on 52-28-4273Aipqicx/Globulin [Mass ratio]1.4 {ratio}Normal Grant HospitalComment on above:Performed By: #### HCGQNT #### [place] [address] USASerum or plasma anion gap determinationOrdered By: Elier Jackson on 07-55-2107Wfzlw gap [Moles/Vol]11.9 mmol/LNormal6.0-15.0Grant HospitalComment on above:Performed By: #### HCGQNT #### [place] [address] USASerum or plasma non-glucuronidated bilirubin measurement (mass/volume)Ordered By: Elier Jackson on 94-99-8750Qkoxybxyk.indirect [Mass/Vol] 0.2 mg/dLAkron Children's Hospitalodium [Moles/volume] in Serum or PlasmaOrdered By: Elier Jackson on 21-76-2136Xqlxgb [Moles/Vol]137 mmol/LNormal 136-145Grant HospitalComment on above:Performed By: #### HCGQNT #### [place] [address] USAUrea nitrogen [Mass/volume] in Serum or PlasmaOrdered By: Elier Jackson on 79-27-5586Sgoq nitrogen [Mass/Vol]6 mg/dLLow7-25Grant HospitalComment on above:Performed By: #### HCGQNT #### [facility] [address] [place] [id number] USAGENITAL CULTUREon 34-85-4872Voooice Culture, RoutineFinal reportAbOhioHealth Nelsonville Health CenterComment on above:Result Comment: Specimen stability note: A swab transport (ie., ESwab, Amies agar gel) received by the lab more than 24 hours after collection may result in reduced recovery of Neisseria gonorrhoeae (GC). (This is informational only and may not apply to this specimen.)Performed By: #### CXGENIT #### [facility] [address] [place] [address] Dr. Rod Good 1Commymichigan medical center saultAbOhioHealth Nelsonville Health CenterComment on above: Result Comment: Beta hemolytic Streptococcus, [...] been reported for Streptococcus pyogenes (group A). (CLSI)Performed By: #### CXGENIT #### [facility] [address] [place] [address] Dr. Rod Good 2ComBlanchard Valley Health SystemComment on above:Result Comment: Routine genital deborah. Light growthPerformed By: #### CXGENIT #### [facility] [address] [place] [address] Dr. Rod Nogueira AUTO DIFFon 12-21-1363NVSQ #0.0 103/ulNormal0.0-0.1[facility] Parma Medical CenterComment on above:Performed By: #### CBC #### [facility] [address] [place] [address] Dr. Rod RamirezBasophils/100 WBC (Bld)0.4 %Normal0.2-2.0[facility] Comment on above:Performed By: #### CBC #### [facility] [address] [place] [address] [address] Rod Keita #0.1 103/ulNormal0.0-0.7The [facility] HospitalComment on above: Performed By: #### CBC #### [facility] [address] [place] [address] Dr. Rod Correaosinophils/100 WBC (Bld)1.5 %Normal0.9-7.0The [facility] Comment on above:Performed By: #### CBC #### [facility] [address] [place] [address] Dr. Rod Correarythrocyte distribution width (RBC) [Ratio]12.9 %Fhpfqc63.0-15.0 The [facility] HospitalComment on above:Performed By: #### CBC #### [facility] [address] [place] [address] Dr. Rod RamirezHematocrit (Bld) [Volume fraction]40.9 %Ughcqf84.0-48.0The [facility] HospitalComment on above:Performed By: #### CBC #### [facility] [address] [place] [address] Dr. Rod RamirezHemoglobin (Bld) [Mass/Vol]13.7 g/sLAwcqaj74.0-16.0The [facility] HospitalComment on above:Performed By: #### CBC #### [facility] [address] [place] [address] Dr. Rod Davis #0.02 10e3/ulNormal0.00-0.03The [facility] HospitalComment on above:Performed By: #### CBC #### [facility] [address] [place] [address] Dr. Rod Davis %0.3 %Normal0.0-0.5The Cleveland Clinicment on above: Performed By: #### CBC #### [facility] [address] [place] [address] Dr. Rod Gaytan #1.6 103/ulNormal1.2-3.8The [facility] HospitalComment on above:Performed By: #### CBC #### [facility] [address] [place] [address] [address] Rod Cabreramphocytes/100 WBC (Bld)23.6 %Hxmqpv97.5-60.0The [facility] HospitalComment on above:Performed By: #### CBC #### [facility] [address] [place] [address] Dr. Rod Haney DIFF REQNONormalThe Sammamish HospitalComment on above: Performed By: #### CBC #### [facility] [address] [place] [address] Dr. Rod Groves (RBC) [Entitic mass]27.7 yhIafwqv61.7-34.0The [facility] HospitalComment on above:Performed By: #### CBC #### [facility] [address] [place] [address] Dr. Rod Groves (RBC) [Mass/Vol]33.5 g/yBCdlpgi85.9-35.2The [facility] HospitalComment on above:Performed By: #### CBC #### [facility] [address] [place] [address] Dr. Rod Randall (RBC) [Entitic vol]82.6 hATokqrh76.0-99.0The [facility] HospitalComment on above:Performed By: #### CBC #### [facility] [address] [place] [address] Dr. Rod Lewis #0.4 103/ulNormal0.3-0.8The [facility] HospitalComment on above:Performed By: #### CBC #### [facility] [address] [place] [address] Dr. Rod Dialloocytes/100 WBC (Bld)6.4 %Normal1.7-12.0The [facility] Comment on above:Performed By: #### CBC #### [facility] [address] [place] [address] Dr. Rod Welsh #4.6 103/ulNormal1.4-6.5The [facility] HospitalComment on above:Performed By: #### CBC #### [facility] [address] [place] [address] Dr. Rod RamirezNeutrophils/100 WBC (Bld)67.8 %Qsdmlz20.0-75.0The [facility] HospitalComment on above:Performed By: #### CBC #### [facility] [address] [place] [address] Dr. Rod RamirezPlatelet mean volume (Bld) [Entitic vol]9.4 fLCritically low 9.5-13.5The [facility] HospitalComment on above:Performed By: #### CBC #### [facility] [address] [place] [address] Dr. Rod McbrideT439 103/wzGsspei987-208Zns [facility] HospitalComment on above: Performed By: #### CBC #### [facility] [address] [place] [address] Dr. Rod RamirezRBC4.95 106/ulNormal4.20-5.40The [facility] HospitalComment on above:Performed By: #### CBC #### [facility] [address] [place] [address] Dr. Rod RamirezWBC6.7 103/ulNormal4.0-11.0The [facility] HospitalComment on above: Performed By: #### CBC #### [facility] [address] [place] [address] Dr. Rod SherwoodG HCG QUALon 00-94-4901KRJMIDLAA, QUALNegativeNormalNEGATIVE The [facility] HospitalComment on above:Performed By: #### PREG #### [facility] [address] [place] [address] Dr. Rod RamirzePROLalo CHEM 8 (BAS METB)on 84-52-6059Wczpe gap [Moles/Vol]15.5 mmol/LNormalThe [facility] HospitalComment on above:Performed By: #### BMP #### [facility] [address] [place] [address] Dr. Rod RamirezCalcium [Mass/Vol]9.0 mg/dLNormal8.5-10.1The [facility] Comment on above:Performed By: #### BMP #### [facility] [address] [place] [address] [address] Rod RamirezChloride [Moles/Vol]103 mmol/KLhngvt96-947Elv [facility] Comment on above:Performed By: #### BMP #### [facility] [address] [place] [address] [address] Rod RamirezCO2 [Moles/Vol]23.9 mmol/KUkfayw43.0-32.0The [facility] Comment on above:Performed By: #### BMP #### [facility] [address] [place] [address] Dr. Rod RamirezCreatinine [Mass/Vol]0.79 mg/dLNormal0.55-1.02The [facility] HospitalComment on above:Performed By: #### BMP #### [facility] [address] [place] [address] [address] Velasco ChangEGFR-AF SYRIAN>60Normal>=60The [facility] HospitalComment on above:Performed By: #### BMP #### [facility] [address] [place] [address] Dr. Rod CorreaGFR-NON AF SYRIAN>60Normal>=60The [facility] HospitalComment on above:Performed By: #### BMP #### [facility] [address] [place] [address] [address] Rod RamirezGlucose [Mass/Vol]108 mg/dLCritically ibmx80-704Arg [facility] HospitalComment on above:Performed By: #### BMP #### [facility] [address] [place] [address] [address] Rod RamirezPotassium [Moles/Vol]3.4 mmol/LCritically low3.5-5.1The [facility] HospitalComment on above:Performed By: #### BMP #### [facility] [address] [place] [address] [address] Rod RamirezSodium [Moles/Vol]139 mmol/ZPvvdef047-237Vel [facility] Comment on above:Performed By: #### BMP #### [facility] [address] [place] [address] [address] Rod Mcginnis nitrogen [Mass/Vol]7.0 mg/dLNormal7.0-18.0The [facility] HospitalComment on above:Performed By: #### BMP #### [facility] [address] [place] [address] Dr. Rod Mcginnis nitrogen/Creatinine [Mass ratio]8.9 mg/mgNormSumma Health Barberton CampusComment on above:Performed By: #### BMP #### [facility] [address] [place] [address] Dr. Rod Jacobo PELVIS TRANSVAGon 43-59-7015PR PELVIS TRANSVAGEXAMINATION: US PELVIS TRANSVAG HISTORY: Cyst of left [...] Electronically authenticated by: AUBREY BURKS Date: 2022-07-28 07:46NoCleveland Clinic Euclid HospitalWET PREPon 78-87-3350LBLB CELLSNONE SEENNormalNONE SEENThe [facility] HospitalComment on above:Performed By: #### WP #### [facility] [address] [place] [address] Dr. Rod RamirezFUNGAL ELEMENTSNONE SEENNormBullhead Community HospitalE SEENMetrohealth [facility] Comment on above:Performed By: #### WP #### [facility] [address] [place] [address] [address] Rod JosephC -WET PREPRAREAbnormalNONE SEENMetrohealth Parma Medical CenterComment on above:Performed By: #### WP #### [facility] [address] [place] [address] [address] Rod RamirezTRICHOMONASNONE SEENNormalNONE SEENMetrohealth Parma Medical CenterComment on above:Performed By: #### WP #### [facility] [address] [place] [address] [address] Rod RamirezWBC- WET PREPRAREAbnormalNONE SEENMetrohealth Parma Medical CenterComment on above:Performed By: #### WP #### [facility] [address] [place] [address] [address] Rod Aguirre PREP BACTERIANONE SEENrmflNONE [facility] Comment on above:Performed By: #### WP #### [facility] [address] [place] [address] [address] Rod Deleon [id number] (HEMASA) ANTONIA NOYOLA ([id number]) 1985 F Date Time Provider Department 04/30/22 MADYSON NI During your visit today, we recorded the following information about you: Tabby Steele Ma 04/30/2022 2:25 PM Signed CMP if needed. Tabby Steele Ma Allergies As of Date: 04/30/2022 Noted Allergy Reaction MORPHINE 06/20/2018 14 - Other: See Comments Comments: Spasms Date Reviewed: 04/09/2022 Reviewed by: Gloria Dority, RN - Fully Assessed Reason for Visit: Lab Orders [1688] Primary Visit Diagnosis:Iron deficiency anemia due to chronic blood loss [D50.0] Order(s):COMP METABOLIC PANEL [SQP] Order #: [id number] FUTURE Prescriptions as of 05/03/2022 - ALPRAZolam [...] 10/27/2020 Encounter Status:Closed by MADYSON NI on 05/03/22NoMarion HospitalAnisocytosis LM Ql (Bld)Ordered By: Yevgeniy Cabrera on 04-28-2022 Anisocytosis Ql (Bld)MarkedGrant HospitalAutomated erythrocytes count in urine sediment (number/area)Ordered By: Yevgeniy Cabrera on 68-28-1823YJS Auto (Urine sed) [#/Area]None seen [HPF]0-4FUK HealthcareAutomated leukocytes count in urine sediment (number/area)Ordered By: Yevgeniy Cabrera on 59-95-3281RPG Auto (Urine sed) [#/Area]3-4 [HPF]0-4 Grant HospitalBasophils Auto (Bld) [#/Vol]Ordered By: Yevgeniy Cabrera on 04-90-8885Lurqyexym (Bld) [#/Vol]0.1 10*3/uL0.0-0.2FUK HealthcareBasophils/100 WBC Auto (Bld)Ordered By: Yevgeniy Cabrera on 48-12-6364Femahbazo/100 WBC (Bld)1.0 %.[facility] Bilirubin Test strip Ql (U)Ordered By: Yevgeniy Cabrera on 18-91-4163Apvvpxnme Ql (U)NegativeNegativeGrant HospitalBody fluid albumin measurement (mass/volume)Ordered By: Yevgeniy Cabrera on 99-95-1179Phhvhng (Body fld) [Mass/Vol]3.8 g/dL3.2-5.5FUK HealthcareColor Auto (U) Ordered By: Yevgeniy Cabrera on 73-35-8847Uemhi (U)YellowYellowGrant HospitalCreatinine and Glomerular filtration rate.predicted panel (S/P/Bld)Ordered By: Yevgeniy Cabrera on 46-20-4532Rniyneisug [Mass/Vol]0.62 mg/dL 0.44-1.03Grant HospitalEosinophils Auto (Bld) [#/Vol]Ordered By: Yevgeniy Cabrera on 25-33-3023Fanpvkjqjef (Bld) [#/Vol]0.1 10*3/uL0.0-0.45 Grant HospitalEosinophils/100 WBC Auto (Bld)Ordered By: Yevgeniy Cabrera on 21-02-3591Qsrebjvqjeu/100 WBC (Bld)1.0 %.Grant HospitalErythrocyte distribution width Auto (RBC) [Ratio]Ordered By: Yevgeniy Cabrera on 15-29-6085Xahdwyowzzg distribution width (RBC) [Ratio]27.1 % 11.9-15.3FUK HealthcareEstimated glomerular filtration rate (GFR) non- AmericanOrdered By: Yevgeniy Cabrera on 83-83-6176BTY/1.73 sq M.predicted among non-blacks MDRD (S/P/Bld) [Vol rate/Area]> 60 mL/MinGrant HospitalGlobulin Calc (S) [Mass/Vol]Ordered By: Yevgeniy Cabrera on 80-31-8962Faeblekd (S) [Mass/Vol]3.1 g/dLGrant HospitalHCG ( test) IA.rapid Ql (U)Ordered By: Yevgeniy Cabrera on 98-77-7426OVR ( test) Ql (U)NegativeGrant HospitalHematocrit Auto (Bld) [Volume fraction]Ordered By: Yevgeniy Cabrera on 20-90-2256Xctbpcpuix (Bld) [Volume fraction]39.4 %34.0-46.4FUK HealthcareHemoglobin [Mass/volume] in BloodOrdered By: Yevgeniy Cabrera on 76-01-0952Sboarqoexl (Bld) [Mass/Vol]12.3 g/dL11.8-15.4FUK HealthcareHypochromia LM Ql (Bld)Ordered By: Yevgeniy Cabrera on 67-14-4724Xdmmtflezbx Ql (Bld)SlightGrant HospitalKetones Auto test strip (U) [Mass/Vol]Ordered By: Yevgeniy Cabrera on 14-09-0086Rlhlgzf (U) [Mass/Vol]NegativeNegativeGrant HospitalLaboratory - Hematology and Cell countsOrdered By: Yevgeniy Cabrera on 13-14-3442Agdbkjrqa RBC/100 WBC (Bld) [Ratio]0.0 %0-0.5FUK HealthcareLaboratory - UrinalysisOrdered By: Yevgeniy Cabrera on 04-28-2022 Hyaline casts LM Ql (Urine sed)None seen [LPF]0-8Grant HospitalLeukocytes [#/volume] in Blood by Automated countOrdered By: Yevgeniy Cabrera on 75-45-7170MGV (Bld) [#/Vol]7.9 10*3/uL4.5-11.0Grant HospitalLymphocytes Auto (Bld) [#/Vol]Ordered By: Yevgeniy Cabrera on 04-28-2022 Lymphocytes (Bld) [#/Vol]2.3 10*3/uL1.00-4.8[facility] Lymphocytes/100 WBC Auto (Bld)Ordered By: Yevgeniy Cabrera on 04-28-2022 Lymphocytes/100 WBC (Bld)28.9 %.[facility] Auto (RBC) [Entitic mass]Ordered By: Yevgeniy Cabrera on 03-59-1888YNB (RBC) [Entitic mass] 23.3 pg24.7-34.3FUK HealthcareMCHC Auto (RBC) [Mass/Vol] Ordered By: Yevgeniy Cabrera on 83-38-1214UUWE (RBC) [Mass/Vol]31.3 g/dL32.0-35.0 Grant HospitalMCV Auto (RBC) [Entitic vol]Ordered By: Yevgeniy Cabrera on 27-36-3486EKL (RBC) [Entitic vol]74.5 vW73-067KxeuddcgpGrant HospitalMonocytes Auto (Bld) [#/Vol]Ordered By: Yevgeniy Cabrera on 09-85-1383Ignzsrwlj (Bld) [#/Vol]0.4 10*3/uL0.0-0.8Grant HospitalMonocytes/100 WBC Auto (Bld)Ordered By: Yevgeniy Cabrera on 04-28-2022 Monocytes/100 WBC (Bld)4.5 %.Grant HospitalNeutrophils Auto (Bld) [#/Vol]Ordered By: Yevgeniy Cabrera on 80-34-1038Tedjnuzfsxy (Bld) [#/Vol]5.1 10*3/uL1.8-7.7FUK HealthcareNeutrophils/100 WBC Auto (Bld) Ordered By: Yevgeniy Cabrera on 26-74-6364Pdqtnradvfl/100 WBC (Bld)64.6 %.Grant HospitalNitrite Test strip Ql (U)Ordered By: Yevgeniy Cabrera on 61-27-2820Yycaibw Ql (U)NegativeNegativeGrant HospitalNo Panel InformationOrdered By: Yevgeniy Cabrera on 92-27-5794Cjjlcdyxs GFR ()> 60 mL/MinGrant HospitalComment on above:GFR estimated reference range: According to KDOQI guidelines, <60 ml/min/1.73m2 is sufficient todiagnose a patient with chronic kidney disease.Pharmacy Creatinine Clearance (Eiew689.36[facility] Hospitallides for Pathologist ReviewOrdered path reviewGrant HospitalOvalocyte detection Ordered By: Yevgeniy Cabrera on 39-71-5014Tmhzdiwvkf LM Ql (Bld)ModerateGrant HospitalPlatelet adequacy [Presence] in Blood by Light microscopy Ordered By: Yevgeniy Cabrera on 36-96-6666Hkykcaipn LM Ql (Bld)NormalNormal Grant HospitalPlatelet mean volume Auto (Bld) [Entitic vol] Ordered By: Yevgeniy Cabrera on 09-04-5370Frqormnp mean volume (Bld) [Entitic vol] 7.4 fL6.3-10.7FUK HealthcarePlatelet morphology finding [Identifier] in BloodOrdered By: Yevgeniy Cabrera on 12-06-4652Iaatfdfy morphology finding Nom (Bld)NormalNormalGrant HospitalPlatelets Auto (Bld) [#/Vol]Ordered By: Yevgeniy Cabrera on 73-41-3139Mstopmonw (Bld) [#/Vol]329 10*3/hO720-167ClyhzbplxGrant HospitalPoikilocytosis [Presence] in Blood by Light microscopyOrdered By: Yevgeniy Cabrera on 48-13-3738Pxptbflxhdgiwu LM Ql (Bld)ModerateGrant HospitalPolychromasia [Presence] in Blood by Light microscopyOrdered By: Yevgeniy Cabrera on 96-06-7714Ytbtszvuxcdyt LM Ql (Bld)SlightGrant HospitalProtein Auto test strip (U) [Mass/Vol]Ordered By: Yevgeniy Cabrera on 27-01-2293Nphudoc (U) [Mass/Vol]Negative NegativeGrant HospitalProtein [Mass/volume] in Serum or PlasmaOrdered By: Yevgeniy Cabrera on 00-92-3262Ebymywi [Mass/Vol]6.9 g/dL6.1-7.9 Grant HospitalRB Auto (Bld) [#/Vol]Ordered By: Yevgeniy Cabrera on 14-13-0799ZRP (Bld) [#/Vol]5.29 10*6/uL3.60-5.00Grant HospitalRB morphologyOrdered By: Yevgeniy Cabrera on 30-47-9706CDS morphology finding Nom (Bld)N/AFProvidence Hospitalerum or plasma alanine aminotransferase measurement without P-5'-P (enzymatic activiOrdered By: Yevgeniy Cabrera on 75-99-7259VQW No additional P-5'-P [Catalytic activity/Vol]43 U/L10-60 [facility] Hospitalerum or plasma albumin/globulin mass ratio Ordered By: Yevgeniy Cabrera on 47-89-0012Hjcettd/Globulin [Mass ratio]1.2 {ratio} [facility] Hospitalerum or plasma alkaline phosphatase measurement (enzymatic activity/volume)Ordered By: Yevgeniy Cabrera on 04-28-2022 ALP [Catalytic activity/Vol]65 U/U38-03DryuylhfaAkron Children's Hospitalerum or plasma anion gap determinationOrdered By: Yevgeniy Cabrera on 40-55-2550Uwubu gap [Moles/Vol]14.6 mmol/L6.0-15.0[facility] Hospitalerum or plasma aspartate aminotransferase measurement (enzymatic activity/volume)Ordered By: Yevgeniy Cabrera on 27-53-6641TRF [Catalytic activity/Vol]26 U/Q41-19MgsdroxtlAkron Children's Hospitalerum or plasma calcium measurement (mass/volume)Ordered By: Yevgeniy Cabrera on 17-50-0453Ehfbvne [Mass/Vol]9.3 mg/dL8.2-10.2FProvidence Hospitalerum or plasma chloride measurement (moles/volume) Ordered By: Yevgeniy Cabrera on 25-37-9360Afrypobr [Moles/Vol]105 mmol/L95-114 [facility] Hospitalerum or plasma glucose measurement (mass/volume)Ordered By: Yevgeniy Cabrera on 19-53-2580Odplygb [Mass/Vol]112 mg/dL 70-100Grant HospitalComment on above:ADA recommended reference rangeRandom Glucose Reference Range is dependent on time and content of last meal. Glucose of more than 200 mg/dL in a nonstressed, ambulatory subject supports the diagnosisof Diabetes Mellitus.Serum or plasma potassium measurement (moles/volume)Ordered By: Yevgeniy Cabrera on 91-62-4591Hmkgrgxza [Moles/Vol]3.7 mmol/L3.5-5.1FProvidence Hospitalerum or plasma sodium measurement (moles/volume)Ordered By: Yevgeniy Cabrera on 16-46-6382Vrcdwq [Moles/Vol]137 mmol/E016-191TngunfwrlAkron Children's Hospitalerum or plasma total bilirubin measurement (mass/volume)Ordered By: Yevgeniy Cabrera on 04-28-2022 Bilirubin [Mass/Vol]0.5 mg/dL0.3-1.2FProvidence Hospitalerum or plasma total carbon dioxide measurement (moles/volume)Ordered By: Yevgeniy Cabrera on 07-71-7240NT5 [Moles/Vol]21.1 mmol/L22.0-30.0[facility] Hospitalerum or plasma urea nitrogen measurement (mass/volume)Ordered By: Yevgeniy Cabrera on 43-69-3659Dsvn nitrogen [Mass/Vol]5 mg/dL9-23[facility]'s Hospitalpecific gravity Auto test strip (U) [Rel density]Ordered By: Yevgeniy Cabrera on 56-10-9021Cdegkrtk gravity (U) [Rel density]1.0051.001-1.030 [facility]'s Hospitalquamous epithelial cells detection in urine sediment by light microscopyOrdered By: Yevgeniy Cabrera on 53-24-1072Jwigsbdevt cells.squamous LM Ql (Urine sed)0-1 [HPF]0-2[facility] Teardrop cell detectionOrdered By: Yevgeniy Cabrera on 50-28-0216Ahokrhzrns LM Ql (Bld)SlightGrant HospitalUrine bacteria detection by automated methodOrdered By: Yevgeniy Cabrera on 36-05-7112Ohiblezo Auto Ql (U)None seenNone [facility]. Anthony's HospitalUrine clarity by refractometry automatedOrdered By: Yevgeniy Cabrera on 60-02-7374Lgmksfc Refractometry automated (U)CloudyCleFirelands Regional Medical Center South CampusUrine glucose measurement by automated test strip (mass/volume)Ordered By: Yevgeniy Cabrera on 63-81-9727Fnknetd Auto test strip (U) [Mass/Vol]Normal mg/dLNoLake County Memorial Hospital - WestUrine hemoglobin detection by automated test stripOrdered By: Yevgeniy Cabrera on 26-91-1824Uitblkjkhe Auto test strip Ql (U)NegativeNegativeGrant HospitalUrine leukocyte esterase detection by automated test stripOrdered By: Yevgeniy Cabrera on 78-81-6714Cmskljeze esterase Auto test strip Ql (U)1+NegativeGrant HospitalUrobilinogen Auto test strip (U) [Mass/Vol]Ordered By: Yevgeniy Cabrera on 55-50-6373Qmasgutkiowj (U) [Mass/Vol] Normal mg/dLNormOhioHealthpH Auto test strip (U)Ordered By: Yevgeniy Cabrera on 06-11-5112bZ (U)6.5 [pH]5.0-9.0[facility] 40-25-3906YWDLLA HEALTHHNO ID: [id number] Author: Stephenie Suh, 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 Service: ? [...] April 09, 2022 TIME: 2:21 PM PAGER[facility]CONTA[facility] CNPNTelephone (NCCAP) ANTONIA NOYOLA ([id number]) 1985 F Date Time Provider Department 03/19/22 [...] Date Reviewed: 03/10/2022 Reviewed by: Madyson Ni APRN.CNP - Fully Assessed Reason for Visit: No [...] 10/27/2020 Encounter Status:Closed by CORBIN MANE on 03/19/22NoMarion HospitalCNPNTelephone (HEMTSA) ANTONIA NOYOLA ([id number]) 1985 F Date Time Provider Department 03/19/22 FINANCIAL NAVIGATOR JOHNY HOYOS During your visit today, we recorded the following information about you: Sparkle Short [facility] 03/19/2022 4:48 PM Signed 1st report of treatment-Non oncology regimen (Venofer) No FA available for this treatment at this time. Allergies As of Date: 03/19/2022 Noted Allergy Reaction MORPHINE 06/20/2018 14 - Other: See Comments Comments: Spasms Date Reviewed: 03/10/2022 Reviewed by: Madyson Ni APRN.FAMILY AND CONSUMER EDUCATION TEACHER - Fully Assessed Reason for Visit: Benefits Investigation [5539] Prescriptions as of 03/19/2022 - ALPRAZolam (XANAX) [...] iron [K90.9] 10/27/2020 Encounter Status:Closed by [facility] SPARKLE JACOBSEN on 03/19/22NoBet[facility] 14-19-6844ZVTZVfykdwxnw (HEMASA) ANTONIA NOYOLA ([id number]) 1985 F Date Time Provider Department 03/15/22 [...] Date Reviewed: 03/10/2022 Reviewed by: Madyson Ni APRN.FAMILY AND CONSUMER EDUCATION TEACHER - Fully Assessed Reason for Visit: Social [...] iron [K90.9] 10/27/2020 Encounter Status:Closed by SHARON AGLAVIZ on 03/15/22NormalCSelect Medical Specialty [facility] W Auto Differential panel (Bld)on 82-85-5705Ihzggejde (Bld) [#/Vol] 0.05 10*3/uLNormal<0.11CBl[facility] on above:Order Comment: Specimen Type: BLOOD SPECIMEN Ordering Facility: [facility] Address: [address] [place], [place] [address]Performed By: #### 31219-3 #### [facility] CLIA [id number] [address] [place] [address] 36187Nghihrzqi/100 WBC (Bld)0.8 %NormalOhiohealth Marion General Hospital Comment on above:Order Comment: Specimen Type: BLOOD SPECIMEN Ordering Facility: [facility] Address: [address] [place], [place] [address]Performed By: #### 61930-4 #### [facility] CLIA [id number] [address] [place] [address] 29272Ipapeawgunwm cell count method Nom (Bld)AutoNormalCBlanchard Valley [facility]uff[facility] on above:Order Comment: Specimen Type: BLOOD SPECIMEN Ordering Facility: [facility] Address: [address] [place], [place] [address]Performed By: #### 50085-7 #### [facility] CLIA [id number] [address] [place] [address] 52464Bjnsbkvawla (Bld) [#/Vol]0.15 10*3/uLNormal<0.46[facility] on above:Order Comment: Specimen Type: BLOOD SPECIMEN Ordering Facility: [facility] Address: [address] [place], [place] [address]Performed By: #### 50428-7 #### [facility] CLIA [id number] [address] [place], [place] [address]Gurxlyirklk/100 WBC (Bld)2.3 %NormalOhiohealth Marion General Hospital Comment on above:Order Comment: Specimen Type: BLOOD SPECIMEN Ordering Facility: [facility] Address: [address] [place], [place] [address]Performed By: #### 66424-2 #### [facility] CLIA [id number] [address] [place], [place] [address]Zvcuxrfapyc distribution width (RBC) [Ratio]17.4 %High 11.5-15.0[facility] on above:Order Comment: Specimen Type: BLOOD SPECIMEN Ordering Facility: [facility] Address: [address] [place], [place] [address]Performed By: #### 15333-8 #### [facility] CLIA [id number] [address] [place] [address] 56363Yjyvpoqtyd (Bld) [Volume fraction]29.4 %Low36.0-46.0[facility] General HospitalComment on above:Order Comment: Specimen Type: BLOOD SPECIMEN Ordering Facility: [facility] Address: [address] [place], [place] [address]Performed By: #### 74994-8 #### [facility] CLIA [id number] [address] [place] [address] 42157Ycyntpfhga (Bld) [Mass/Vol]8.5 g/dLLow11.5-15.5CGalion Community HospitalCommymichigan medical center sault on above:Order Comment: Specimen Type: BLOOD SPECIMEN Ordering Facility: [facility] Address: [address] [place], [place] [address]Performed By: #### 85907-1 #### [facility] CLIA [id number] [address] [place] [address] 17123HEUGWAHE GRAN %0.3 %NormalOhioHealth Mansfield Hospital on above:Order Comment: Specimen Type: BLOOD SPECIMEN Ordering Facility: [facility] Address: [address] [place], [place] [address]Performed By: #### 91789-6 #### [facility] CLIA [id number] [address] [place], [place] [address]XHGSKOCH GRAN ABS<0.03Normal<0.10[facility] Comment on above:Order Comment: Specimen Type: BLOOD SPECIMEN Ordering Facility: [facility] Address: [address] [place], [place] [address]Performed By: #### 45346-8 #### [facility] CLIA [id number] [address] [place] [address] 39298Isjnqsspenu (Bld) [#/Vol]3.62 10*3/uLNormal1.00-4.00[facility] on above:Order Comment: Specimen Type: BLOOD SPECIMEN Ordering Facility: [facility] Address: [address] [place], [place] [address]Performed By: #### 00521-3 #### [facility] CLIA [id number] [address] [place] [address] 67610Sqsknzluobn/100 WBC (Bld)54.8 %NormalOhioHealth Mansfield Hospital on above:Order Comment: Specimen Type: BLOOD SPECIMEN Ordering Facility: [facility] Address: [address] [place], [place] [address]Performed By: #### 27954-2 #### [facility] CLIA [id number] [address] [place], [place] [address]PZO (RBC) [Entitic mass]20.3 pgLow26.0-34.0[facility] on above:Order Comment: Specimen Type: BLOOD SPECIMEN Ordering Facility: [facility] Address: [address] [place], [place] [address]Performed By: #### 19467-2 #### [facility] CLIA [id number] [address] [place] [address] 63518QPHO (RBC) [Mass/Vol]28.9 g/dLLow30.5-36.0[facility] on above:Order Comment: Specimen Type: BLOOD SPECIMEN Ordering Facility: [facility] Address: [address] [place], [place] [address]Performed By: #### 03965-1 #### [facility] CLIA [id number] [address] [place] [address] 97144OHR (RBC) [Entitic vol]70.3 fLLow80.0-100.0[facility] on above:Order Comment: Specimen Type: BLOOD SPECIMEN Ordering Facility: [facility] Address: [address] [place], [place] [address]Performed By: #### 51383-4 #### [facility] CLIA [id number] [address] [place] [address] 54435Pmdsiwfdu (Bld) [#/Vol]0.38 10*3/uLNormal<0.87[facility] on above:Order Comment: Specimen Type: BLOOD SPECIMEN Ordering Facility: [facility] Address: [address] [place], [place] [address]Performed By: #### 02681-3 #### [facility] CLIA [id number] [address] [place] [address] 79826Wtoogrlko/100 WBC (Bld)5.7 %NormalOhiohealth Marion General Hospital Comment on above:Order Comment: Specimen Type: BLOOD SPECIMEN Ordering Facility: [facility] Address: [address] [place], [place] [address]Performed By: #### 24214-3 #### [facility] CLIA [id number] [address] [place] [address] 51498Xsbhchtmzkj (Bld) [#/Vol]2.39 10*3/uLNormal1.45-7.50[facility] on above:Order Comment: Specimen Type: BLOOD SPECIMEN Ordering Facility: [facility] Address: [address] [place], [place] [address]Performed By: #### 72791-5 #### [facility] CLIA [id number] [address] [place], [place] [address]Tipwdsevdnp/100 WBC (Bld)36.1 %NormalOhioHealth Mansfield Hospital on above:Order Comment: Specimen Type: BLOOD SPECIMEN Ordering Facility: [facility] Address: [address] [place], [place] [address]Performed By: #### 15216-2 #### [facility] CLIA [id number] [address] [place] [address] 40714Gjvbshvin RBC (Bld) [#/Vol]10*3/uLNormal<0.01[facility] on above:Order Comment: Specimen Type: BLOOD SPECIMEN Ordering Facility: [facility] Address: [address] [place], [place] [address]Performed By: #### 40756-2 #### [facility] CLIA [id number] [address] [place] [address] 46743Lwklktvkj RBC/100 WBC (Bld) [Ratio]0.0 /100 WBCNormalCBlanchard [facility] on above:Order Comment: Specimen Type: BLOOD SPECIMEN Ordering Facility: [facility] Address: [address] [place], [place] [address]Performed By: #### 88564-7 #### [facility] CLIA [id number] [address] [place] [address] 56240Tiobdjxw mean volume (Bld) [Entitic vol]8.8 fLLow9.0-12.7 [facility] on above:Order Comment: Specimen Type: BLOOD SPECIMEN Ordering Facility: [facility] Address: [address] [place], [place] [address]Performed By: #### 99258-4 #### [facility] CLIA [id number] [address] [place] [address] 30563Tquyyvipk (Bld) [#/Vol]419 10*3/kDXpzb907-770AmpvgvqnoOhioHealth Mansfield Hospital on above:Order Comment: Specimen Type: BLOOD SPECIMEN Ordering Facility: [facility] Address: [address] [place], [place] [address]Performed By: #### 84047-4 #### [facility] CLIA [id number] [address] [place] [address] 36301MDC (Bld) [#/Vol]4.18 10*6/uLNormal3.90-5.20[facility] on above:Order Comment: Specimen Type: BLOOD SPECIMEN Ordering Facility: [facility] Address: [address] [place], [place] [address]Performed By: #### 79452-3 #### [facility] CLIA [id number] [address] [place] [address] 16720CIK (Bld) [#/Vol]6.61 10*3/uLNormal3.70-11.00[facility] on above:Order Comment: Specimen Type: BLOOD SPECIMEN Ordering Facility: [facility] Address: [address] [place], [place] [address]Performed By: #### 23584-6 #### [facility] CLIA [id number] [address] [place] [address] 46635BFDSIAom [phone] (SP) Office (HEMASA) ANTONIA NOYOLA ([id number]) 1985 F Date Time Provider Department 03/10/22 2:00 PM MADYSON NI During your visit today, we recorded the following information about you: Temperature Pulse Respiration Blood pressure 97.9 degrees 95/minute 16/minute 130/75 Weight Height 83.4 kg 1.651 m Madyson Ni APRN.CNP 03/10/2022 2:25 PM Signed NAME: Antonia Noyloa NO.: [id number] DATE OF SERVICE: March 10, 2022 (Elements [...] 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 Recent laboratories from [facility] October 04, 2020 show hemoglobin of 11.6 [...] anemia due to chronic (more content not included)...Normal [facility] Centerprehensive metabolic 2000 panelon 79-20-2935Dpbhspe [Mass/Vol]4.0 g/dLNormal3.9-4.9CBlanchard [facility] on above:Order Comment: Specimen Type: BLOOD SPECIMEN Ordering Facility: [facility] Address: [address] [place], [place] [address]Performed By: #### 34925-2 #### [facility] CLIA [id number] [address] [place] [address] 88952BCT [Catalytic activity/Vol]55 U/UMmwacd75-354ZpzvajyzdOhioHealth Mansfield Hospital on above:Order Comment: Specimen Type: BLOOD SPECIMEN Ordering Facility: [facility] Address: [address] [place], [place] [address]Performed By: #### 90908-4 #### [facility] CLIA [id number] [address] [place] [address] 84497RVY [Catalytic activity/Vol]12 U/LNormal7-38[facility] on above:Order Comment: Specimen Type: BLOOD SPECIMEN Ordering Facility: [facility] Address: [address]Performed By: #### 94123-1 #### [facility] CLIA [id number] [address] [place], [place] [address]Dupnv gap [Moles/Vol]9 mmol/LNormal9-18[facility] on above:Order Comment: Specimen Type: BLOOD SPECIMEN Ordering Facility: [facility] Address: [address] [place] [address]Performed By: #### 01051-3 #### [facility] CLIA [id number] [address] [place] [address] 34078PEA [Catalytic activity/Vol]14 U/ARibbtu64-55QnhhepxkzOhioHealth Mansfield Hospital on above:Order Comment: Specimen Type: BLOOD SPECIMEN Ordering Facility: [facility] Address: [address] [place], [place] [address]Performed By: #### 43264-0 #### [facility] CLIA [id number] [address] [place] [address] 81955Movuoytxf [Mass/Vol]0.3 mg/dLNormal0.2-1.3CBlanchard Valley [facility] on above:Order Comment: Specimen Type: BLOOD SPECIMEN Ordering Facility: [facility] Address: [address] [place], [place] [address]Performed By: #### 77686-7 #### [facility] CLIA [id number] [address] [place] [address] 99090Rihgprx [Mass/Vol]8.8 mg/dLNormal8.5-10.2CBlanchard Valley [facility] on above:Order Comment: Specimen Type: BLOOD SPECIMEN Ordering Facility: [facility] Address: [address] [place], [place] [address]Performed By: #### 00386-6 #### [facility] CLIA [id number] [address] [place] [address] 95177Rqoodvlc [Moles/Vol]105 mmol/EBckmxc72-275UulohwhpcOhioHealth Mansfield Hospital on above:Order Comment: Specimen Type: BLOOD SPECIMEN Ordering Facility: [facility] Address: [address] [place], [place] [address]Performed By: #### 97706-3 #### [facility] CLIA [id number] [address] [place] [address] 07136JU2 [Moles/Vol]24 mmol/MOkxegi53-97IabqykraeOhiohealth Marion General Hospital Comment on above:Order Comment: Specimen Type: BLOOD SPECIMEN Ordering Facility: [facility] Address: [address] [place], [place] [address]Performed By: #### 01168-7 #### [facility] CLIA [id number] [address] [place], [place] [address]Ygfxshexry [Mass/Vol]0.65 mg/dLNormal0.58-0.96[facility] on above:Order Comment: Specimen Type: BLOOD SPECIMEN Ordering Facility: [facility] Address: [address] [place], [place] [address]Performed By: #### 57730-0 #### [facility] CLIA [id number] [address] [place], [place] [address]IKUURRXYE GLOMERULAR FILTRATION WZII183 mL/min/1.73m???Normal >=60[facility] on above:Order Comment: Specimen Type: BLOOD SPECIMEN Ordering Facility: [facility] Address: [address] [place], [place] [address]Result Comment: Estimated Glomerular Filtration Rate (eGFR) is calculated using the 2020 CKD-EPI cre atinine equation. This equation utilizes serum creatinine, sex, and age as parameters. The creatinine assay has traceable calibration to isotope dilution- mass spectrometry. Refer to KDIGO guidelines for clinical interpretation. In patients with unstable renal function, e.g. those with acute kidney injury, the eGFR may not accurately reflect actual GFR.Performed By: #### 21112-2 #### [facility] CLIA [id number] [address] [place], [place] [address]Bqspfbs [Mass/Vol]109 mg/cQLxhq45-27PuxtptjooOhiohealth [facility] Hospital Comment on above:Order Comment: Specimen Type: BLOOD SPECIMEN Ordering Facility: [facility] Address: [address] [place], [place] [address]Result Comment: The [employer] Diabetes Association (ADA) provides guidance for cutoff [...] Standards of Medical Care in Diabetes 2016, [employer]. Diabetes Care. 2016.39(Suppl 1).Performed By: #### 10617-6 #### [facility] CLIA [id number] [address] [place], [place] [address]Jqoudcrpk [Moles/Vol]3.4 mmol/LLow3.7-5.1CBlanchard Valley [facility] on above:Order Comment: Specimen Type: BLOOD SPECIMEN Ordering Facility: [facility] Address: [address] [place], [place] [address]Performed By: #### 32143-8 #### [facility] CLIA [id number] [address] [place] [address] 863[address]Sczyfnw [Mass/Vol]6.5 g/dLNormal6.3-8.0[facility] on above:Order Comment: Specimen Type: BLOOD SPECIMEN Ordering Facility: [facility] Address: [address] [place], [place] [address]Performed By: #### 05556-0 #### [facility] CLIA [id number] [address] [place] [address] 34169Xhcywt [Moles/Vol]138 mmol/UBvvzea451-514AmovwvosrOhioHealth Mansfield Hospital on above:Order Comment: Specimen Type: BLOOD SPECIMEN Ordering Facility: [facility] Address: [address] [place], [place] [address]Performed By: #### 99834-0 #### [facility] CLIA [id number] [address] [place] [address] 08449Myij nitrogen [Mass/Vol]8 mg/dLNormal7-21[facility] on above:Order Comment: Specimen Type: BLOOD SPECIMEN Ordering Facility: [facility] Address: [facility] [place] [address]Performed By: #### 10346-2 #### [facility] CLIA [id number] [address] [place] [address] 53971Yzjapdxx SerPl-mCncon 45-74-9059Phvqyrvr [Mass/Vol]5.4 ng/mL Low14.7-205.1CBlanchard [facility] on above:Order Comment: Specimen Type: BLOOD SPECIMEN Ordering Facility: [facility] Address: [address] [place], [place] [address]Performed By: #### 43528-3, 2131-9, 2283-8, 6-4 #### [facility] CLIA [id number] [address] [place] [address] [place] OF AMERICAFolate SerPl-mCncon 04-81-8357Zraqxo [Mass/Vol]8.7 ng/mLNormal>4.7CBlanchard Valley [facility] on above:Order Comment: Specimen Type: BLOOD SPECIMEN Ordering Facility: [facility] Address: [address] [place], [place] [id number] By: #### 27721-5, 9, 2283-8, 6-4 #### [facility] CLIA [id number] [address] [place] [address] [place] AMERICAIron and Iron binding capacity panelon [id number] [Mass/Vol]17 ug/[id number] Mansfield Hospital on above:Order Comment: Specimen Type: BLOOD SPECIMEN Ordering Facility: [facility] Address: [address] [place], [place] [id number] By: #### 00362-3, 2131-9, 4-8, 6-4 #### [facility] CLIA [id number] [address] [place] [address] [place] AMER[place]AIron binding capacity [Mass/Vol]422 ug/[id number] Mansfield Hospital on above:Order Comment: Specimen Type: BLOOD SPECIMEN [facility] [facility] Address: [address] [place], [place] [id number] By: #### 54394-5, 2131-9, 2283-8, 2275-4 #### [facility] CLIA [id number] [address] [place] [address] [place] OF AMERICAIron/TIBC [Molar ratio]4.0 % Low15.0-57.0[facility] on above:Order Comment: Specimen Type: BLOOD SPECIMEN Ordering Facility: [facility] Address: [address] [place], [place] [address]Performed By: #### 23681-4, 9, 2283-8, 2275-4 #### [facility] CLIA [id number] [address] [place] [address] STATES OF AMERICAVit B12 SerPl-mCncon 71-11-8702Sexmrysfv (Vitamin B12) [Mass/Vol]367 pg/sNQilzpq312-5217YoutzdgjcBlanchard [facility] on above:Order Comment: Specimen Type: BLOOD SPECIMEN Ordering Facility: [facility] Address: [address] [place], [place] [address]Performed By: #### 32495-7, 9, 8, 4 #### [facility] CLIA [id number] [address] [place] [address] [place] OF AMERICACNPNon [id number] Telephone (BK) ANTONIA NOYOLA ([id number]) 1985 F Date Time Provider Department 02/18/22 [...] [D50.0] Order(s):CBC + DIFF [SQCBCDIF] Order #: [id number] FUTURE COMP METABOLIC PANEL [SQCMP] Order #: [id number] FUTURE IRON + TIBC [SQIRON] Order #: [id number] FUTURE FERRITIN BLD [SQFERR] Order #: [id number] FUTURE VITAMIN B12 BLOOD [SQB12] Order #: [id number] FUTURE FOLATE SERUM [SQSERFOL] Order #: [id number] FUTURE Prescriptions as of 02/20/2022 - ALPRAZolam [...] 10/27/2020 Encounter Status:Closed by GINO REID [facility]22[facility] [#/Vol]Ordered By: Jennifer Duran on 02-12-2022 Basophils (Bld) [#/Vol]0.1 10*3/uL0.0-0.2[facility] Basophils/100 WBC Auto (Bld)Ordered By: Jennifer Duran on 06-64-6075Yfwvivhpv/100 WBC (Bld)1.0 %.[facility] HospitalBlood anisocytosis detection Ordered By: Jennifer Duran on 01-07-2692Eiclnvbizmbb Ql (Bld)ModerateGrant HospitalBlood hemoglobin measurement (mass/volume)Ordered By: Jennifer Duran on 66-89-1221Ystgfxwtdo (Bld) [Mass/Vol]8.5 g/dL11.8-15.4FUK HealthcareBlood leukocytes automated count (number/volume)Ordered By: Jennifer Duran on 80-58-1276CZL (Bld) [#/Vol]5.9 10*3/uL4.5-11.0[facility] HospitalBody fluid albumin measurement (mass/volume)Ordered By: Jennifer Duran on 56-75-6035Rovdmim (Body fld) [Mass/Vol]3.7 g/dL3.2-5.5FUK HealthcareCT biopsyOrdered By: Jennifer Duran on 02-12-2022 Transferrin [Mass/Vol]356 mg/eR521-378VevglicbtGrant Hospital Creatinine and Glomerular filtration rate.predicted panel (S/P/Bld)Ordered By: Jennifer Duran on 43-88-9410Jwskblqwbj [Mass/Vol]0.72 mg/dL0.44-1.03Grant HospitalEosinophils Auto (Bld) [#/Vol]Ordered By: Jennifer Duran on 08-55-0753Pbritsyelih (Bld) [#/Vol]0.1 10*3/uL0.0-0.45Grant HospitalEosinophils/100 WBC Auto (Bld)Ordered By: Jennifer Duran on 85-30-1462Aqrbwgcvycf/100 WBC (Bld)2.2 %.[facility] Erythrocyte distribution width Auto (RBC) [Ratio]Ordered By: Jennifer Duran on 84-91-4630Wjtpsfvribv distribution width (RBC) [Ratio]17.3 %11.9-15.3FUK HealthcareEstimated glomerular filtration rate (GFR) non- AmericanOrdered By: Jennifer Duran on 89-80-5173JIY/1.73 sq M.predicted among non- blacks MDRD (S/P/Bld) [Vol rate/Area]> 60 mL/MinGrant HospitalFerritin [Mass/volume] in Serum or PlasmaOrdered By: Jennifer Duran on 65-87-4100Evuqazpf [Mass/Vol]5.1 ng/qS45-984.8[facility] Globulin Calc (S) [Mass/Vol]Ordered By: Jennifer Duran on 42-88-8619Rbapzncp (S) [Mass/Vol]2.9 g/dLGrant HospitalHematocrit Auto (Bld) [Volume fraction]Ordered By: Jennifer Duran on 42-89-9694Cjumxrvdci (Bld) [Volume fraction]27.9 %34.0-46.4FUK HealthcareHypochromia detection Ordered By: Jennifer Duran on 25-07-0720Yitzmiizuvl Ql (Bld)SlightGrant HospitalIron [Mass/volume] in Serum or PlasmaOrdered By: Jennifer Duran on 41-95-8984Vmey [Mass/Vol]11 ug/aL46-416MnpwmpgteGrant HospitalIron binding capacity [Mass/volume] in Serum or PlasmaOrdered By: Jennifer Duran on 90-63-6283Gjbh binding capacity [Mass/Vol]498 ug/kR931-579ZjcksdvpxGrant HospitalIron saturation [Mass Fraction] in Serum or PlasmaOrdered By: Jennifer Duran on 55-50-7402Yrzf saturation [Mass fraction]2.0 %20-50Grant HospitalLaboratory - Hematology and Cell countsOrdered By: Jennifer Duran on 28-23-7091Odlugdwdr RBC/100 WBC (Bld) [Ratio]0.3 %0-0.5FUK HealthcareLymphocytes Auto (Bld) [#/Vol]Ordered By: Jennifer Duran on 83-58-1797Ivvgdqvfnti (Bld) [#/Vol]3.0 10*3/uL1.00-4.8Grant HospitalLymphocytes/100 WBC Auto (Bld)Ordered By: Jennifer Duran on 44-33-2425Ifjsonerbxg/100 WBC (Bld)50.8 %.[facility] HospitalH Auto (RBC) [Entitic mass]Ordered By: Jennifer Duran on 29-38-7235DPS (RBC) [Entitic mass]20.1 pg24.7-34.3FUK HealthcareMCHC Auto (RBC) [Mass/Vol]Ordered By: Jennifer Duran on 88-57-1643JMAB (RBC) [Mass/Vol]30.4 g/dL 32.0-35.0Grant HospitalMCV Auto (RBC) [Entitic vol]Ordered By: Jennifer Duran on 89-07-6885AWL (RBC) [Entitic vol]66.3 dC14-340TplccetwqGrant HospitalMonocytes Auto (Bld) [#/Vol]Ordered By: Jennifer Duran on 22-70-5057Wkradopal (Bld) [#/Vol]0.3 10*3/uL0.0-0.8Grant HospitalMonocytes/100 WBC Auto (Bld)Ordered By: Jennifer Duran on 02-12-2022 Monocytes/100 WBC (Bld)5.7 %.Grant HospitalNeutrophils Auto (Bld) [#/Vol]Ordered By: Jennifer Duran on 61-14-0222Mlssktjxpyz (Bld) [#/Vol]2.4 10*3/uL1.8-7.7FUK HealthcareNeutrophils/100 WBC Auto (Bld) Ordered By: Jennifer Duran on 65-86-0928Hupmbkeivzp/100 WBC (Bld)40.3 %.Grant HospitalNo Panel InformationOrdered By: Jennifer Duran on 98-93-6159Bbgcurbxi GFR ()> 60 mL/MinGrant HospitalComment on above:GFR estimated reference range: According to KDOQI guidelines, <60 ml/min/1.73m2 is sufficient todiagnose a patient with chronic kidney disease.MicrocytosisModerateGrant HospitalPharmacy Creatinine Clearance (ChemN/AFUK HealthcarePlatelet Estimate NormalNormalGrant HospitalPlatelet Morphology CommentNormal NormalGrant HospitalPlatelet mean volume Auto (Bld) [Entitic vol]Ordered By: Jennifer Duran on 89-67-8791Sbbcbejl mean volume (Bld) [Entitic vol]8.1 fL6.3-10.7FUK HealthcarePlatelets Auto (Bld) [#/Vol] Ordered By: Jennifer Duran on 18-12-6300Umxsptchv (Bld) [#/Vol]459 10*3/wB712-882 [facility] HospitalProtein [Mass/volume] in Serum or PlasmaOrdered By: Jennifer Duran on 12-84-4042Dlniszm [Mass/Vol]6.6 g/dL6.1-7.9[facility] Auto (Bld) [#/Vol]Ordered By: Jennifer Duran on 63-80-6592UWP (Bld) [#/Vol]4.20 10*6/uL3.60-5.00[facility] morphologyOrdered By: Jennifer Duran on 32-25-1527EMP morphology finding Nom (Bld)N/AFProvidence Hospitalerum or plasma alanine aminotransferase measurement without P-5'-P (enzymatic activiOrdered By: Jennifer Duran on 97-81-3731CNF No additional P-5'-P [Catalytic activity/Vol]69 U/L10-60 [facility] Hospitalerum or plasma albumin/globulin mass ratio Ordered By: Jennifer Duran on 31-24-6148Nvemcom/Globulin [Mass ratio]1.3 {ratio} [facility] Hospitalerum or plasma alkaline phosphatase measurement (enzymatic activity/volume)Ordered By: Jennifer Duran on 45-10-7180UHS [Catalytic activity/Vol]73 U/K23-73IrbdijesdAkron Children's Hospitalerum or plasma anion gap determinationOrdered By: Jennifer Duran on 58-84-5729Vosmh gap [Moles/Vol]13.2 mmol/L6.0-15.0[facility] Hospitalerum or plasma aspartate aminotransferase measurement (enzymatic activity/volume)Ordered By: Jennifer Duran on 12-61-7182STT [Catalytic activity/Vol]42 U/K32-90UijqwsepfAkron Children's Hospitalerum or plasma calcium measurement (mass/volume)Ordered By: Jennifer Duran on 76-65-2441Ocixkip [Mass/Vol]9.3 mg/dL8.2-10.2FProvidence Hospitalerum or plasma chloride measurement (moles/volume) Ordered By: Jennifer Duran on 55-45-4349Rsfgqsfx [Moles/Vol]101 mmol/L95-114 [facility] Hospitalerum or plasma glucose measurement (mass/volume)Ordered By: Jennifer Duran on 17-64-2365Vtwilsi [Mass/Vol]98 mg/dL 70-100Grant HospitalComment on above:ADA recommended reference range Random Glucose Reference Range is dependent on time and content of last meal. Glucose of more than 200 mg/dL in a nonstressed, ambulatory subject supports the diagnosis of Diabetes Mellitus.ADA recommended reference rangeRandom Glucose Reference Range is dependent on time and content of last meal. Glucose of more than 200 mg/dL in a nonstressed, ambulatory subject supports the diagnosisof Diabetes Mellitus.Serum or plasma potassium measurement (moles/volume)Ordered By: Jennifer Duran on 89-32-0796Vtwyxbvnh [Moles/Vol]3.6 mmol/L3.5-5.1FProvidence Hospitalerum or plasma sodium measurement (moles/volume)Ordered By: Jennifer Duran on 53-59-0746Mpcbuj [Moles/Vol]136 mmol/F218-344MmhxomxlsAkron Children's Hospitalerum or plasma total bilirubin measurement (mass/volume) Ordered By: Jennifer Duran on 72-27-7104Quyeexxhp [Mass/Vol]0.4 mg/dL0.3-1.2 [facility] Hospitalerum or plasma total carbon dioxide measurement (moles/volume)Ordered By: Jennifer Duran on 21-44-8916BL5 [Moles/Vol] 25.4 mmol/L22.0-30.0[facility] Hospitalerum or plasma urea nitrogen measurement (mass/volume)Ordered By: Jennifer Duran on 93-84-3726Cdcv nitrogen [Mass/Vol]4 mg/dL9-23Grant HospitalBasophils Auto (Bld) [#/Vol]Ordered By: Kendra Persaud on 68-14-6966Wkfrnqvdx (Bld) [#/Vol]0.1 10*3/uL0.0-0.2FUK HealthcareBasophils/100 WBC Auto (Bld) Ordered By: Kendra Persaud on 18-56-9418Gfksffdxo/100 WBC (Bld)1.3 %Grant HospitalBilirubin Test strip Ql (U)Ordered By: Kendra Persaud on 98-90-3749Nxkyzbplt Ql (U)NegativeNegativeGrant Hospital Blood hemoglobin measurement (mass/volume)Ordered By: Kendra Persaud on 00-08-5995Uknjamjdnl (Bld) [Mass/Vol]9.7 g/dL11.8-15.4FUK HealthcareBlood leukocytes automated count (number/volume)Ordered By: Kendra Persaud on 13-52-1173TER (Bld) [#/Vol]8.9 10*3/uL4.5-11.0Grant HospitalBody fluid albumin measurement (mass/volume)Ordered By: Kendra Persaud on 77-06-7201Xckdngq (Body fld) [Mass/Vol]3.7 g/dL3.2-5.5FUK HealthcareColor Auto (U)Ordered By: Kendra Persaud on 09-14-2021 Color (U)YellowYellowGrant HospitalCreatinine and Glomerular filtration rate.predicted panel (S/P/Bld)Ordered By: Kendra Persaud on 06-37-7343Vurltbndix [Mass/Vol]0.71 mg/dL0.44-1.03Grant HospitalEosinophils Auto (Bld) [#/Vol]Ordered By: Kendra Persaud on 09-14-2021 Eosinophils (Bld) [#/Vol]0.0 10*3/uL0.0-0.45[facility] Eosinophils/100 WBC Auto (Bld)Ordered By: Kendra Persaud on 09-14-2021 Eosinophils/100 WBC (Bld)0.4 %Grant HospitalErythrocyte distribution width Auto (RBC) [Ratio]Ordered By: Kendra Persaud on 04-04-2022 Erythrocyte distribution width (RBC) [Ratio]17.0 %11.9-15.3FUK HealthcareEstimated glomerular filtration rate (GFR) non- Ordered By: Kendra Persaud on 13-96-1685XJB/1.73 sq M.predicted among non- blacks MDRD (S/P/Bld) [Vol rate/Area]> 60 mL/MinGrant HospitalGlobulin Calc (S) [Mass/Vol]Ordered By: Kendra Persaud on 09-14-2021 Globulin (S) [Mass/Vol]3.2 g/dLGrant HospitalHCG ( test) IA.rapid Ql (U)Ordered By: Kendra Persaud on 61-34-8902IMO ( test) Ql (U)NegativeGrant HospitalHematocrit Auto (Bld) [Volume fraction]Ordered By: Kendra Persaud on 16-75-2416Koomugckpe (Bld) [Volume fraction]31.9 %34.0-46.4FUK HealthcareKetones Auto test strip (U) [Mass/Vol]Ordered By: Kendra Persaud on 10-06-5461Lserhia (U) [Mass/Vol]NegativeNegativeGrant HospitalLaboratory - Chemistry and Chemistry - challengeOrdered By: Kendra Persaud on 09-14-2021 Lipase [Catalytic activity/Vol]36.0 U/O07-26PuqptcuyuGrant Hospital Laboratory - Hematology and Cell countsOrdered By: Kendra Persaud on 09-14-2021 Nucleated RBC/100 WBC (Bld) [Ratio]0.0 %0-0.5[facility] Lymphocytes Auto (Bld) [#/Vol]Ordered By: Kendra Persaud on 09-14-2021 Lymphocytes (Bld) [#/Vol]4.1 10*3/uL1.00-4.8[facility] Lymphocytes/100 WBC Auto (Bld)Ordered By: Kendra Persaud on 09-14-2021 Lymphocytes/100 WBC (Bld)45.7 %[facility] Auto (RBC) [Entitic mass]Ordered By: Kendra Persaud on 19-10-0693JSP (RBC) [Entitic mass] 21.3 pg24.7-34.3FUK HealthcareMCHC Auto (RBC) [Mass/Vol] Ordered By: Kendra Persaud on 04-17-6722ZVEK (RBC) [Mass/Vol]30.4 g/dL32.0-35.0 Grant HospitalMCV Auto (RBC) [Entitic vol]Ordered By: Kendra Persaud on 32-14-6762UMR (RBC) [Entitic vol]70.0 nX96-454PsqorddrjGrant HospitalMonocytes Auto (Bld) [#/Vol]Ordered By: Kendra Persaud on 19-80-1581Ezerzpcdg (Bld) [#/Vol]0.7 10*3/uL0.0-0.8Grant HospitalMonocytes/100 WBC Auto (Bld)Ordered By: Kendra Persaud on 09-14-2021 Monocytes/100 WBC (Bld)7.8 %Grant HospitalNeutrophils Auto (Bld) [#/Vol]Ordered By: Kendra Persaud on 28-25-0765Ntcmgpfsvtr (Bld) [#/Vol] 4.0 10*3/uL1.8-7.7FUK HealthcareNeutrophils/100 WBC Auto (Bld)Ordered By: Kendra Persaud on 26-01-2949Alvvjwboekn/100 WBC (Bld)44.8 % Grant HospitalNitrite Test strip Ql (U)Ordered By: Kendra Persaud on 34-72-3085Thfgzuj Ql (U)NegativeNegativeGrant HospitalNo Panel InformationOrdered By: Kendra Persaud on 37-20-3824Zbckwfmmh GFR ()> 60 mL/MinGrant HospitalComment on above: GFR estimated reference range: According to KDOQI guidelines, <60 ml/min/1.73m2 is sufficient todiagnose a patient with chronic kidney disease.Pharmacy Creatinine Clearance (Fhty832.44Grant HospitalPlatelet mean volume Auto (Bld) [Entitic vol]Ordered By: Kendra Persaud on 33-73-4185Cueuwjpx mean volume (Bld) [Entitic vol]7.4 fL6.3-10.7[facility] Platelets Auto (Bld) [#/Vol]Ordered By: Kendra Persaud on 34-04-8811Sgrzzgztb (Bld) [#/Vol]604 10*3/oS818-782AbvmgohalGrant HospitalProtein Auto test strip (U) [Mass/Vol]Ordered By: Kendra Persaud on 64-84-0402Grhumjf (U) [Mass/Vol]NegativeNegativeGrant HospitalProtein [Mass/volume] in Serum or PlasmaOrdered By: Kendra Persaud on 77-21-1619Bsllnux [Mass/Vol] 6.9 g/dL6.1-7.9Grant HospitalRBC Auto (Bld) [#/Vol]Ordered By: Kendra Persaud on 98-55-3963CYR (Bld) [#/Vol]4.55 10*6/uL3.60-5.00[facility] Hospitalerum or plasma alanine aminotransferase measurement without P-5'-P (enzymatic activiOrdered By: Kendra Persaud on 87-46-3329KVI No additional P-5'-P [Catalytic activity/Vol]16 U/K39-88NlqardctrAkron Children's Hospitalerum or plasma albumin/globulin mass ratioOrdered By: Kendra Persaud on 93-46-4260Bxtkbfe/Globulin [Mass ratio]1.2 {ratio}[facility] Hospitalerum or plasma alkaline phosphatase measurement (enzymatic activity/volume)Ordered By: Kendra Persaud on 40-19-4939GXE [Catalytic activity/Vol]48 U/N97-59BpkcpendfAkron Children's Hospitalerum or plasma aspartate aminotransferase measurement (enzymatic activity/volume)Ordered By: Kendra Persaud on 30-85-4779DMT [Catalytic activity/Vol]17 U/P06-27VzcvuzudsAkron Children's Hospitalerum or plasma calcium measurement (mass/volume)Ordered By: Kendra Persaud on 24-73-8597Zupmcbl [Mass/Vol]9.0 mg/dL8.2-10.2FProvidence Hospitalerum or plasma chloride measurement (moles/volume) Ordered By: Kendra Persaud on 21-50-2052Anrizkqn [Moles/Vol]105 mmol/L95-114 [facility] Hospitalerum or plasma glucose measurement (mass/volume)Ordered By: Kendra Persaud on 69-61-9040Rtvoduh [Mass/Vol]94 mg/dL 70-100Grant HospitalComment on above:ADA recommended reference rangeRandom Glucose Reference Range is dependent on time and content of last meal. Glucose of more than 200 mg/dL in a nonstressed, ambulatory subject supports the diagnosisof Diabetes Mellitus.Serum or plasma potassium measurement (moles/volume)Ordered By: Kendra Persaud on 61-03-8490Qsaieljpb [Moles/Vol]3.1 mmol/L3.5-5.1FProvidence Hospitalerum or plasma sodium measurement (moles/volume)Ordered By: Kendra Persaud on 43-67-9247Nsheyp [Moles/Vol]139 mmol/T575-365VjubduwjsAkron Children's Hospitalerum or plasma total bilirubin measurement (mass/volume)Ordered By: Kendra Persaud 60-67-6374Lzqhuzlko [Mass/Vol]0.5 mg/dL0.3-1.2[facility] Serum or plasma total carbon dioxide measurement (moles/volume)Ordered By: Kendra Persaud on 20-10-5343UI4 [Moles/Vol]23.7 mmol/L22.0-30.0[facility] Hospitalerum or plasma urea nitrogen measurement (mass/volume) Ordered By: Kendra Persaud 14-66-3195Endo nitrogen [Mass/Vol]4 mg/dL9-23 [facility]'s Hospitalpecific gravity Auto test strip (U) [Rel density]Ordered By: Kendra Persaud on 81-46-7685Ngwbnxnh gravity (U) [Rel density]1.0041.001-1.030Grant HospitalUrine clarity by refractometry automatedOrdered By: Kendra Persaud on 65-77-6959Knlqcwn Refractometry automated (U)ClearCleFirelands Regional Medical Center South CampusUrine glucose measurement by automated test strip (mass/volume)Ordered By: Kendra Persaud 40-90-8421Cfdgjhs Auto test strip (U) [Mass/Vol]Normal mg/dLNormal Grant HospitalUrine hemoglobin detection by automated test stripOrdered By: Kendra Persaud on 72-00-5870Epkdffyflr Auto test strip Ql (U) NegativeNegativeGrant HospitalUrine leukocyte esterase detection by automated test stripOrdered By: Kendra Persaud on 09-14-2021 Leukocyte esterase Auto test strip Ql (U)NegativeNegativeGrant HospitalUrobilinogen Auto test strip (U) [Mass/Vol]Ordered By: Kendra Persaud on 25-44-8833Qkqhlhxbuohk (U) [Mass/Vol]Normal mg/dLNormalGrant HospitalpH Auto test strip (U)Ordered By: Kendra Persaud on 54-59-9065bQ (U)6.5 [pH]5.0-9.0Grant HospitalBasophils Auto (Bld) [#/Vol]Ordered By: Augustus Santiago on 45-44-0397Nrinjjnzx (Bld) [#/Vol]0.1 10*3/uL0.0-0.2FUK HealthcareBasophils/100 WBC Auto (Bld) Ordered By: Augustus Santiago on 32-12-8151Iwnzftupj/100 WBC (Bld)0.9 %[facility] HospitalBlood hemoglobin measurement (mass/volume)Ordered By: Augustus Santiago on 75-10-1297Tjxtfkpwws (Bld) [Mass/Vol]10.2 g/dL11.8-15.4 [facility] HospitalBlood leukocytes automated count (number/volume)Ordered By: Augustus Santiago on 10-81-0334PVT (Bld) [#/Vol]6.6 10*3/uL4.5-11.0Grant HospitalCT biopsyOrdered By: Augustus Santiago on 55-10-4709Ehpmqcvdmni [Mass/Vol]360 mg/cS235-954GmtpzvsmwGrant HospitalCreatinine and Glomerular filtration rate.predicted panel (S/P/Bld)Ordered By: Augustus Santiago on 43-15-7172Vxwynkghba [Mass/Vol]0.69 mg/dL 0.44-1.03Grant HospitalEosinophils Auto (Bld) [#/Vol]Ordered By: Augustus Santiago on 62-02-2634Gkpabwyzqsb (Bld) [#/Vol]0.1 10*3/uL0.0-0.45 Grant HospitalEosinophils/100 WBC Auto (Bld)Ordered By: Augustus Santiago on 65-39-0587Yozmufyblaj/100 WBC (Bld)1.2 %Grant HospitalErythrocyte distribution width Auto (RBC) [Ratio]Ordered By: Augustus Santiago on 10-70-6029Mofzupigrmo distribution width (RBC) [Ratio]17.2 %11.9-15.3 [facility] HospitalEstimated glomerular filtration rate (GFR) non- AmericanOrdered By: Augustus Santiago on 32-77-9132FRP/1.73 sq M.predicted among non-blacks MDRD (S/P/Bld) [Vol rate/Area]> 60 mL/MinGrant HospitalHematocrit Auto (Bld) [Volume fraction]Ordered By: Augustus Santiago on 49-86-8730Tcewjuveve (Bld) [Volume fraction]32.0 %34.0-46.4FUK HealthcareIron [Mass/volume] in Serum or PlasmaOrdered By: Augustus Santiago on 01-00-1194Jqog [Mass/Vol]10 ug/dM31-377NumadvnbuGrant HospitalIron binding capacity [Mass/volume] in Serum or PlasmaOrdered By: Augustus Santiago on 99-33-9709Jhzs binding capacity [Mass/Vol]504 ug/qL912-308OwzwgmhniGrant HospitalIron saturation [Mass Fraction] in Serum or PlasmaOrdered By: Augustus Santiago on 28-38-6393Emrf saturation [Mass fraction]1.0 %20-50Grant HospitalLaboratory - Hematology and Cell countsOrdered By: Augustus Santiago on 48-32-0367Spmbbkwgj RBC/100 WBC (Bld) [Ratio]0.0 %0-0.5FUK HealthcareLymphocytes Auto (Bld) [#/Vol]Ordered By: Augustus Santiago on 21-59-8549Ysbrzsnnfyj (Bld) [#/Vol]1.9 10*3/uL1.00-4.8Grant HospitalLymphocytes/100 WBC Auto (Bld)Ordered By: Augustus Santiago on 61-09-6583Ahbimkmxiqy/100 WBC (Bld)28.4 %[facility] HospitalH Auto (RBC) [Entitic mass]Ordered By: Augustus Santiago on 02-42-7419RCZ (RBC) [Entitic mass]22.7 pg24.7-34.3FUK HealthcareMCHC Auto (RBC) [Mass/Vol]Ordered By: Augustus Santiago on 51-87-8911TXZD (RBC) [Mass/Vol]31.9 g/dL 32.0-35.0Grant HospitalMCV Auto (RBC) [Entitic vol]Ordered By: Augustus Santiago on 40-66-5946HZZ (RBC) [Entitic vol]71.3 cT91-852KupqssodoGrant HospitalMonocytes Auto (Bld) [#/Vol]Ordered By: Augustus Santiago on 78-11-1760Yafsemsri (Bld) [#/Vol]0.5 10*3/uL0.0-0.8Grant HospitalMonocytes/100 WBC Auto (Bld)Ordered By: Augustus Santiago on 07-04-2021 Monocytes/100 WBC (Bld)7.6 %Grant HospitalNeutrophils Auto (Bld) [#/Vol]Ordered By: Augustus Santiago on 70-64-0301Pawhuqvblfy (Bld) [#/Vol]4.1 10*3/uL1.8-7.7FUK HealthcareNeutrophils/100 WBC Auto (Bld) Ordered By: Augustus Santiago on 21-14-6318Sewygmkyoal/100 WBC (Bld)61.9 %Grant HospitalNo Panel InformationOrdered By: Augustus Santiago on 88-40-2748O-Dimer Quantitative (PE/DVT)< 200 ng/mL0-243Grant HospitalComment on above:The reference range for D-dimer is <243 ng/mL D- dimer units.D-dimer results must be used in conjunction [...] be increased in hospitalized patients due toco-morbid conditions.Estimated GFR ()> 60 mL/Min Grant HospitalComment on above:GFR estimated reference range: According to KDOQI guidelines, <60 ml/min/1.73m2 is sufficient todiagnose a patient with chronic kidney disease.Pharmacy Creatinine Clearance (ChemN/A Grant HospitalPlatelet mean volume Auto (Bld) [Entitic vol] Ordered By: Augustus Santiago on 16-98-5478Czmndnkv mean volume (Bld) [Entitic vol] 7.9 fL6.3-10.7FUK HealthcarePlatelets Auto (Bld) [#/Vol] Ordered By: Augustus Santiago on 20-40-1555Cfmcgeylw (Bld) [#/Vol]457 10*3/tN754-892 Grant HospitalRBC Auto (Bld) [#/Vol]Ordered By: Augustus Santiago on 15-21-9880RFX (Bld) [#/Vol]4.48 10*6/uL3.60-5.00[facility] Hospitalerum or plasma calcium measurement (mass/volume)Ordered By: Augustus Santiago on 34-43-2536Xpcfkro [Mass/Vol]8.9 mg/dL8.2-10.2FProvidence Hospitalerum or plasma chloride measurement (moles/volume)Ordered By: Augustus Santiago on 11-43-2505Ovwjccml [Moles/Vol]105 mmol/V47-403KlpgmniguAkron Children's Hospitalerum or plasma glucose measurement (mass/volume)Ordered By: Augustus Santiago on 01-31-3158Gdmgchj [Mass/Vol]110 mg/wU25-175QusvfrllhGrant HospitalComment on above:ADA recommended reference rangeRandom Glucose Reference Range is dependent on time and content of last meal. Glucose of more than 200 mg/dL in a nonstressed, ambulatory subject supports the diagnosisof Diabetes Mellitus.Serum or plasma potassium measurement (moles/volume)Ordered By: Augustus Santiago on 01-42-9127Tzthdjviz [Moles/Vol]3.5 mmol/L3.5-5.1FProvidence Hospitalerum or plasma sodium measurement (moles/volume)Ordered By: Augustus aSntiago on 79-41-1032Ywjndu [Moles/Vol]136 mmol/Z990-089MpxdkmpgvAkron Children's Hospitalerum or plasma total carbon dioxide measurement (moles/volume)Ordered By: Augustus Santiago on 86-93-9249WN8 [Moles/Vol]23.0 mmol/L 22.0-30.0[facility] Hospitalerum or plasma urea nitrogen measurement (mass/volume)Ordered By: Augustus Santiago on 36-72-0705Ltas nitrogen [Mass/Vol]5 mg/dL9-23Grant HospitalCardiac Stress Teston 98-86-3328Fjwwzlf Stress TestN[address], [address] [place] [address] TRANSTHORACIC ECHOCARDIOGRAM REPORT Patient Name: ANTONIAAlisia NOYOLA Reading Physician: [id number] Raphael Alas MD Study Date: 08/06/2020 Referring Physician: [id number] CANTU MRN/PID: [id number] PCP: Jennifer Duran Accession/Order#: [id number] Department Location: [facility] Date of : 1985 Fellow: Gender: F Nurse: Admit Date: Glass Tube Bender: Josephine Newton [address], [facility] Height: 165.10 cm CC Report to: Weight: 88.00 kg Study Type: Echocardiogram BSA: 1.95 m2 Diagnosis/ICD: R06.00-Dyspnea, unspecified; R00.0-Tachycardia, unspecified Indication: Obesity, Family History of CAD Procedure/CPT: Echo Complete w Full [id number] Study Detail: The following Echo studies were [...] normal. There is no indication of pulmonic valveregurgitation. Pericardium: There is no pericardial effusion noted. [...] 0.9 m/s (0.6-0.9m/s) PV Max P.0 mmHg [id number] Raphael Alas MD Electronically signed on 08/07/2020 at 4:26:59 PM Final NormalUCHealth Highlands [facility] Vital Signs Date TimeVital SignValuePerforming [id number] 22:41-0500 Diastolic blood xlfiqtdv25 mm[Hg]Jignesh Dumont [facility]02-28-2025 22:41-0500Heart rate97 /minJignesh Dumont [facility]02-28-2025 22:41-0500 Respiratory rate18 /minJignesh Dumont [place] [facility]28[facility] 22:41-5402YeU0% (BldA) [Mass fraction]98 %[facility] 22:41-0500 Systolic blood ddgdvpig654 mm[Hg]Jignesh Dumont [address] [place], [place] 0457002-28-2025 19:53-0500Body mhirmobumdo97.06 [degF]Jignesh Dumont [address] [place], [place] 0457002-28-2025 19:53-0500 Diastolic blood mnutdztg94 mm[Hg]Jignesh Dumont [address] [place], [place] 0457002-28-2025 19:53-0500Heart selp730 /minJignesh Dumont [address] [place], [place] 0457002-28-2025 19:53-0500 Respiratory rate20 /minKeivelisse Dumont [address] [place], [place] 0457002-28-2025 19:53-3089PgY1% (BldA) [Mass fraction]99 %Jignesh Dumont [address] [place], [place] 0457002-28-2025 19:53-0500 Systolic blood xyihklpo630 mm[Hg]Jignesh Dumont [address] [place], [place] 0457002-23-2025 18:03-0500 Diastolic blood xuowglih87 mm[Hg]Dimitri Vuong [address] [place], [place] 0457002-23-2025 18:03-0500Heart rate92 /minTim Yevgeniy [address] [place], [place] 0457002-23-2025 18:03-0500 Respiratory rate20 /minTim Yevgeniy [address] [place], [place] 0457002-23-2025 18:03-3834UpJ9% (BldA) [Mass fraction]100 %Dimitri Yevgeniy [address] [place], [place] 0457002-23-2025 18:03-0500 Systolic blood txucavqy376 mm[Hg]Dimitri Yevgeniy [address] [place], [place] 0457002-23-2025 11:12-0500Body zgoisuawrin59.52 [degF]Dimitri Vuong [address] [place], [place] 0457002-23-2025 11:12-0500 Diastolic blood sqesnuxd96 mm[Hg]Dimitri Vuong [facility]02-23-2025 11:12-0500Heart lyjx190 /minDimitri Vuong [address] [place], [place] 0457002-23-2025 11:12-0500 Respiratory rate20 /minTim Yevgeniy [address] [place], [place] 0457002-23-2025 11:12-2002TnF1% (BldA) [Mass fraction]100 %Dimitri Vuong [address] [place], [place] 0457002-23-2025 11:12-0500 Systolic blood elxrvzjf641 mm[Hg]Dimitri Vuong [address] [place], [place] 0457002-20-2025 18:54-0500 Diastolic blood prfvkfeo16 mm[Hg][facility] 08-02-2024 18:54-0500Mean blood qdcxbaya36 mm[Hg][facility]02-20-2025 18:54-0500Respiratory rate18 /[facility]02-20-2025 18:54-7062EwD7% (BldA) [Mass fraction]99 %[facility]02-20-2025 18:54-0500Systolic blood pressure 129 mm[Hg][facility]02-20-2025 18:53-0500 Diastolic blood dyovojdp98 mm[Hg][facility] 08-02-2024 18:53-0500Heart ibrj532 /[facility]02-20-2025 18:53-0500Respiratory rate16 /[facility]02-20-2025 18:53-8691OtP8% (BldA) [Mass fraction]98 %[facility]02-20-2025 18:53-0500Systolic blood pressure 129 mm[Hg][facility]02-20-2025 14:44-0500Body vbsjbfkmysd50.06 [degF][facility]02-20-2025 14:44-0500Diastolic blood uwagazdh77 mm[Hg][facility]02-20-2025 14:44-0500Heart ixjx906 /[facility]02-20-2025 14:44-0500Respiratory rate18 /[facility]02-20-2025 14:44-6837YvF2% (BldA) [Mass fraction]100 % [facility]02-20-2025 14:44-0500Systolic blood gvhqkdqy223 mm[Hg][facility]02-19-2025 19:22-0500Body ytsluwyhgzh67.39 [degF]Konstantin Jain MD Work Phone: [facility]02-19-2025 19:22-0500Diastolic blood sqdznrje32 mm[Hg]Konstantin Jain MD Work Phone: [facility]02-19-2025 19:22-0500Heart ofcc774 /Stacie Jain MD Work Phone: [facility]02-19-2025 19:22-0500Respiratory rate16 /Stacie Jain MD Work Phone: [address] [place], [place] 3082102-19-2025 19:22-5229NdV3% (BldA) [Mass fraction]100 %Konstantin Jain MD Work Phone: [facility]02-19-2025 19:22-0500Systolic blood tjngmolj912 mm[Hg]Konstantin Jain MD Work Phone: [facility]02-16-2025 19:10-0500Body height 165.1 cmRose Hardy MD Work Phone: [facility]02-16-2025 19:10-0500Body mass index (BMI) [Ratio]32.45 kg/i9KhdfgRose Hardy MD Work Phone: [facility]02-16-2025 19:10-0500Body tpyptolpfth90.29 [degF]Rose Hardy MD Work Phone: [facility]02-16-2025 19:10-0500Body atubis85.45 kgRose Hardy MD Work Phone: [facility]02-16-2025 19:10-0500Diastolic blood uzhkwaqx793 mm[Hg]Rose Hardy MD Work Phone: [facility]02-16-2025 19:10-0500Heart lsml089 /minRose Hardy MD Work Phone: [facility]02-16-2025 19:10-0500 Respiratory rate18 /Bertha Hardy MD Work Phone: [facility]02-16-2025 19:10-8733BbI0% (BldA) [Mass fraction]99 %Rose Hardy MD Work Phone: [facility]02-16-2025 19:10-0500Systolic blood zkeomgdg571 mm[Hg]Rose Hardy MD Work Phone: [facility]02-01-2025 19:20-0500Diastolic blood nnyvbdwg06 mm[Hg]Dony[facility]ano [facility] 19:20-0500Heart zljo701 /Kenney Romano MD Work Phone: [facility]-01-2025 19:20-0500Respiratory rate18 /Kenney Romano MD Work Phone: [facility]-01-2025 19:20-0132ViR9% (BldA) [Mass fraction]100 %Donya Romano MD Work Phone: [facility]-01-2025 19:20-0500Systolic blood mdwftizl946 mm[Hg]Donya Romano MD Work Phone: [facility]-01-2025 18:23-0500Body .8 [degF]Donya Romano MD Work Phone: [facility]01-29-2025 23:12-0500Diastolic blood xrpfybtq908 mm[Hg]Shalonda Bacon MD Work Phone: [facility]01-29-2025 23:12-0500Heart rqhs722 /Lokesh Bacon MD [facility]: [facility]-29-2025 23:12-0500 Respiratory rate18 /Lokesh Bacon MD [facility] Phone: [facility]01-29-2025 23:12-0500Systolic blood cdhzymxe963 mm[Hg]Shalonda Bacon MD [facility]: [facility]01-29-2025 22:45-0500Body afykcmszfvc88.3 [degF]Shalonda Bacon MD [facility] Phone: [facility]01-29-2025 22:45-1908EoS1% (BldA) [Mass fraction]100 %Shalonda Bacon MD Work Phone: [facility]01-16-2025 01:00-0500Diastolic blood afhknejv823 mm[Hg]Jordyn Willett [facility]01-16-2025 01:00-0500Heart tpqf207 /Morelia Willett [facility]01-16-2025 01:00-0500Mean blood yrtscxpi207 mm[Hg]Jordyn Willett [facility]01-16-2025 01:00-3306KaX2% (BldA) [Mass fraction]95 %Kaylinn Dokken [address] [place], [place] 5280601-16-2025 01:00-0500 Systolic blood mm[Hg]Kaylinn Dokken [address] [place], [place] 5280601-16-2025 00:00-0500 Diastolic blood ajospcco31 mm[Hg]Kaylinn Dokken [address] [place], [place] 5280601-16-2025 00:00-0500Heart faoq174 /minKaylinn Dokken [address] [place], [place] 5280601-16-2025 00:00-0500Mean blood pzwlqvul072 mm[Hg]Kaylinn Dokken [address] [place], [place] 5280601-16-2025 00:00-0500 Systolic blood hqkxhujb783 mm[Hg]Kaylinn Dokken [address] [place], [place] 5280601-15-2025 22:12-0500Body qyjpkciqaye62.34 [degF]Kaylinn Dokken [address] [place], [place] 5280601-15-2025 22:12-0500 Diastolic blood ocpyrubr86 mm[Hg]Kaylinn Dokken [address] [place], [place] 5280601-15-2025 22:12-0500Heart gqag326 /minKaylinn Dokken [address] [place], [place] 5280601-15-2025 22:12-0500 Respiratory rate20 /minKaylinn Dokken [address] [place], [place] 5280601-15-2025 22:12-3499OqP3% (BldA) [Mass fraction]100 %Kaylinn Dokken [address] [place], [place] 5280601-15-2025 22:12-0500 Systolic blood mcubpklt690 mm[Hg]Jordyn Willett [facility]01-15-2025 15:15-0500 Diastolic blood mm[Hg]Randee Richardson MD Work Phone: [facility] [employer] [facility] HospitalOujazj36-37-1317 15:15-9125ZyZ1% (BldA) [Mass fraction]97 %Randee Richardson MD Work Phone: [employer] HospitalFxuzxo48-56-6436 15:15-0500Systolic blood bnuoeuco769 mm[Hg]Randee Richardson MD Work Phone: [employer] [facility] HospitalKchrzu75-38-1930 13:28-0500Body mass index (BMI) [Ratio]30.79 kg/f4Ndofzkenzie Richardson MD Work Phone: [employer] [facility]ia[facility] Djnhhl75-78-4480 13:28-0500Body ouoaaeufoqx71.7 [degF]Randee Richardson MD Work Phone: [employer] [facility] HospitalYwrvai87-40-7232 13:28-0500Body .92 kgThkenzie Richardson MD Work Phone: [employer] HospitalVzhpsh42-14-3331 13:28-0500Heart gydx425 /minRandee Richardson MD Work Phone: [employer] HospitalNggivb55-05-9797 13:28-0500 Respiratory rate16 /minThkenzie Richardson MD Work Phone: [employer] HospitalKodugl79-16-0260 01:00-0500Diastolic blood gqubkdlr68 mm[Hg]Ritesh Heath [facility]01-13-2025 01:00-0500Heart ypwb835 /minNovirginia Heath [facility]01-13-2025 01:00-0500Mean blood ppwgiklj256 mm[Hg]Ritesh Ivana [address] [place], [place] 5280601-13-2025 01:00-9714VnR1% (BldA) [Mass fraction]97 %Ritesh Ivana [address] [place], [place] 5280601-13-2025 01:00-0500 Systolic blood uddllvyl787 mm[Hg]Ritesh Ivana [address] [place], [place] 5280601-13-2025 00:30-0500 Diastolic blood qgfzodia61 mm[Hg]Ritesh Ivana [address] [place], [place] 5280601-13-2025 00:30-0500Heart lwwv840 /minNoah Ivana [address] [place], [place] 5280601-13-2025 00:30-0500Mean blood qtbtkqiv49 mm[Hg]Ritesh Ivana [address] [place], [place] 5280601-13-2025 00:30-0500 Respiratory rate20 /minNoah Ivana [address] [place], [place] 5280601-13-2025 00:30-4510LfI9% (BldA) [Mass fraction]100 %Ritesh Ivana [address] [place], [place] 5280601-13-2025 00:30-0500 Systolic blood aeckknwb469 mm[Hg]Ritesh Ivana [address] [place], [place] 5280601-12-2025 23:35-0500 Diastolic blood fyitmnri41 mm[Hg]Ritesh Ivana [address] [place], [place] 5280601-12-2025 23:35-0500Heart wyjm425 /minNoah Ivana [address] [place], [place] 5280601-12-2025 23:35-0500Mean blood mm[Hg]Ritesh Ivana [address] [place], [place] 5280601-12-2025 23:35-1549QzV1% (BldA) [Mass fraction]100 %Ritesh Ivana [facility]01-12-2025 23:35-0500 Systolic blood qkqummgz761 mm[Hg]Ritesh Ivana [facility]01-12-2025 19:30-0500Body vmjzffqaiux40.7 [degF]Ritesh Ivana [facility]01-12-2025 19:30-0500Heart egnl396 /minNovirginia Ivana [facility]10-11-2024 12:03-0400Body mass index (BMI) [Ratio]32.5 kg/u8[facility]10-11-2024 12:03-0400Body jdebdilgifw38.9 [degF][facility]10-11-2024 12:03-0400Body bpwekq47.9 kg[facility]10-11-2024 12:03-0400Diastolic blood jyaftqno10 mm[Hg][facility] 03-23-2024 12:03-0400Heart rate91 /min[facility] 03-23-2024 12:03-1256OuK6% (BldA) [Mass fraction]98 %[facility]10-11-2024 12:03-0400Systolic blood kuqywyig996 mm[Hg][facility]10-11-2024 08:40-0400Body vqskre553.1 cm[facility]09-21-2024 15:27-0400Body jwqkjayrebd53.71 [degF]Davi Pay DO Work Phone: [facility]09-21-2024 15:27-0400Diastolic blood gpotpuyg40 mm[Hg]Davi Pay DO Work Phone: [facility]09-21-2024 15:27-0400Heart lfwt524 /minJehermanrey Pay DO Work Phone: [facility]09-21-2024 15:27-0400Respiratory rate18 /minDavi Pay DO Work Phone: 1(582)982-[address] [place], [place] 9833209-21-2024 15:27-9047ZsF7% (BldA) [Mass fraction]97 %Davi Pay DO Work Phone: 1(744)861-[address] [place], [place] 9833209-21-2024 15:27-0400Systolic blood mm[Hg]Davi Pay DO Work Phone: 1(197)854-[address] [place], [place] 9833209-13-2024 20:29-0400Body height 165.1 cmAshley Delcid MD Work Phone: 1(789)[address]09-13-2024 20:29-0400Body mkaaqnkfkuz80.01 [degF]Ashley Delcid MD Work Phone: 1(774)[address] [place], [place] 9815509-13-2024 20:29-0400Diastolic blood hauyxvrq73 mm[Hg]Ashley Delcid MD Work Phone: 1(441)[address] [place], [place] 9815509-13-2024 20:29-0400Heart rate94 /Jose Delcid MD Work Phone: 1(355)[address] [place], [place] 9815509-13-2024 20:29-0400Respiratory rate20 /Jose Delcid MD Work Phone: 1(955)[address] [place], [place] 9815509-13-2024 20:29-4894LjZ6% (BldA) [Mass fraction]99 %Ashley Delcid MD Work Phone: 1(451)[address] [place], [place] 9815509-13-2024 20:29-0400Systolic blood eqyomrce599 mm[Hg]Ashley Delcid MD Work Phone: 1(931)[address]09-05-2024 16:47-0400Diastolic blood ursgikkp38 mm[Hg]Jennifer Moore MD Work Phone: 1(621)614-[address] [place], [place] 9833209-05-2024 16:47-0400Heart rate99 /Jessica Moore MD Work Phone: 1(760)[phone]09-05-2024 16:47-1907EsU0% (BldA) [Mass fraction]96 %Jennifer Moore MD Work Phone: 1(175)[phone]09-05-2024 16:47-0400Systolic blood yvyujjpr415 mm[Hg]Jennifer Moore MD Work Phone: 1(900)501-60[facility]09-05-2024 16:38-0400Respiratory rate18 /minDkitty Moore MD Work Phone: 1(195)286-96[facility]09-05-2024 13:28-0400Body gnbpkkxawtq97.29 [degF]Jennifer Moore MD Work Phone: 1(197)625-[address] [place], [place] 9833209-02-2024 00:26-0400Body pzqmubjqfje36.24 [degF]Riteshvirginia Heath [address]09-02-2024 00:26-0400 Diastolic blood gnggwpal98 mm[Hg]Riteshvirginia Lynnner [address]09-02-2024 00:26-0400Heart rate86 /minNovirginia Ivana [address] [place], [place] 0457009-02-2024 00:26-0400 Respiratory rate16 /minNoah Ivana [address] [place], [place] 0457009-02-2024 00:26-4466VfA0% (BldA) [Mass fraction]100 %Ritesh Ivana [address] [place], [place] 0457009-02-2024 00:26-0400 Systolic blood vfeacwot172 mm[Hg]Ritesh Ivana [address]08-11-2024 12:13-0400Body hyqbwv091.1 [facility] Work Phone: [facility]08-11-2024 12:13-0400Body mass index (BMI) [Ratio]29.95 kg/m2[facility] Work Phone: [facility]08-11-2024 12:13-0400Body gclfgiolmfx35.71 [degF]Eren Camejo DO Work Phone: 1(666)[facility]08-11-2024 12:13-0400Body mwpyzs85.65 kgMarc Emely DO Work Phone: 1(675)[facility]08-11-2024 12:13-0400Diastolic blood qvtzzewe86 mm[Hg]Eren Camejo DO Work Phone: 1(021)[facility]08-11-2024 12:13-0400Heart dxpq129 /minMarc Emely DO Work Phone: 1(580)[facility]08-11-2024 12:13-0400 Respiratory rate18 /minMarc Emely DO Work Phone: 1(776)[facility]08-11-2024 12:13-1057RvG3% (BldA) [Mass fraction]100 %Eren Emely DO Work Phone: 1(440)[facility]08-11-2024 12:13-0400Systolic blood mm[Hg]Eren Camejo DO Work Phone: 1(458)[facility]08-08-2024 11:18-0400Body zoscrk795.1 cmDO Jennifer Duran Work Phone: 1(293)351-83[facility]08-08-2024 11:18-0400 Body mass index (BMI) [Ratio]31.9 kg/m2DO Jennifer Duran Work Phone: 1(049)379-60[facility]08-08-2024 11:18-0400 Body rwrvecjincx14.2 [degF]DO Jennifer Duran Work Phone: 1(903)703-37[facility]08-08-2024 11:18-0400 Body jyxbtj84.08 kgDO Jennifer Duran Work Phone: 1(168)569-88[facility]08-08-2024 11:18-0400 Diastolic blood zrenemiq22 mm[Hg]DO Jennifer Duran Work Phone: 1(270)199-83[facility]08-08-2024 11:18-0400 Heart hppp926 /minDO Jennifer Duran Work Phone: 1(192)[address]08-08-2024 11:18-0400 Respiratory rate18 /Bartolo Duran Work Phone: 1(533)[address]08-08-2024 11:18-0400 SaO2% (BldA) [Mass fraction]98 %DO Jennifer Duran Work Phone: 1(367)[address]08-08-2024 11:18-0400 Systolic blood eszqrmkt135 mm[Hg]DO Jennifer Duran Work Phone: 1(511)[address]05-28-2024 14:03-0400 Body awqydh527.1 cmDO Jennifer Duran Work Phone: 1(013)[address]05-28-2024 14:03-0400 Body aausddkdyvx88.1 [degF]DO Jennifer Duran Work Phone: 1(572)[address]05-28-2024 14:03-0400 Body .85 kgDO Jennifer Duran Work Phone: 1(193)[address]05-28-2024 14:03-0400 Diastolic blood mm[Hg]DO Jennifer Duran Work Phone: 1(336)[address]05-28-2024 14:03-0400 Heart rate86 /Bartolo Duran Work Phone: 1(892)[address]05-28-2024 14:03-0400 Respiratory rate16 /aBrtolo Duran Work Phone: 1(630)[address]05-28-2024 14:03-0400 SaO2% (BldA) [Mass fraction]100 %DO Jennifer Duran Work Phone: 1(942)[address]05-28-2024 14:03-0400 Systolic blood oifqvfpa226 mm[Hg]DO Jennifer Duran Work Phone: 1(852)[address]05-28-2024 11:56-0400 Body .1 cmRuth Ann Emely DO Work Phone: [facility]05-28-2024 11:56-0400Body mass index (BMI) [Ratio]30.45 kg/m2Eren Camejo DO Work Phone: 1(167)[facility]05-28-2024 11:56-0400Body ebhqaydoipc58.81 [degF]Eren Camejo DO Work Phone: 1(264)[facility]05-28-2024 11:56-0400Body yaopqz76.01 kgEren Camejo DO Work Phone: 1(972)[facility]05-28-2024 11:56-0400Diastolic blood lbwnvyrf68 mm[Hg]Eren Camejo DO Work Phone: 1(862)[facility]05-28-2024 11:56-0400Heart ljed738 /minMarc Emely DO Work Phone: 1(897)[facility]05-28-2024 11:56-0400 Respiratory rate18 /minMarc Emely DO Work Phone: 1(285)[facility]05-28-2024 11:56-7849YjJ6% (BldA) [Mass fraction]99 %Eren Camejo DO Work Phone: 1(081)[facility]05-28-2024 11:56-0400Systolic blood zblrxezj111 mm[Hg]Eren Camejo DO Work Phone: 1(023)[facility]04-19-2024 02:09-0400Diastolic blood jgnaegmv39 mm[Hg]Ritesh Ivana [facility]04-19-2024 02:09-0400Heart imtf184 /minNo Ivana [facility]04-19-2024 02:09-0400Mean blood alregnlb279 mm[Hg]Ritesh Ivana [facility]04-19-2024 02:09-0400 Respiratory rate20 /minNoah Ivana [address] [place], [place] 5280604-19-2024 02:09-6249TjY3% (BldA) [Mass fraction]98 %Ritesh Ivana [address]04-19-2024 02:09-0400 Systolic blood iwhedbvh656 mm[Hg]Ritesh Ivana [address] [place], [place] 5280604-19-2024 01:00-0400 Diastolic blood tqavqqqm48 mm[Hg]Ritesh Ivana [address] [place], [place] 5280604-19-2024 01:00-0400Heart zqes261 /minNoah Ivana [address] [place], [place] 5280604-19-2024 01:00-0400Mean blood mm[Hg]Ritesh Ivana [address] [place], [place] 5280604-19-2024 01:00-5506OsY6% (BldA) [Mass fraction]99 %Ritesh Ivana [address]04-19-2024 01:00-0400 Systolic blood cmkglrty392 mm[Hg]Ritesh Ivana [address] [place], [place] 5280604-18-2024 23:40-0400Body uwvsfzdpzsr65.7 [degF]Ritesh Ivana [address] [place], [place] 0457004-18-2024 23:40-0400 Diastolic blood dyifawro59 mm[Hg]Ritesh Ivana [address] [place], [place] 0457004-18-2024 23:40-0400Heart kpqy673 /minNoah Ivana [address] [place], [place] 0457004-18-2024 23:40-0400 Respiratory rate20 /minNoah Ivana [address] [place], [place] 0457004-18-2024 23:40-0923EfN3% (BldA) [Mass fraction]100 %Ritesh Ivana [facility]04-18-2024 23:40-0400 Systolic blood besojiqj738 mm[Hg]Ritesh Heath [facility]04-15-2024 18:00-0400Heart ocjp646 /minJokwaku Penny [facility]04-15-2024 18:00-2326UbY9% (BldA) [Mass fraction]96 %Konstantin Penny [address] [place], [place] 0457004-15-2024 17:30-0400 Diastolic blood zozezbeu016 mm[Hg]Konstantin Penny [address] [place], [place] 0457004-15-2024 17:30-0400Heart jfte727 /minJohn Zohaib [facility]04-15-2024 17:30-0400Mean blood sujenosg928 mm[Hg]Konstantin Penny [address] [place], [place] 0457004-15-2024 17:30-9690ScN6% (BldA) [Mass fraction]100 %Konstantin Penny [facility]04-15-2024 17:30-0400 Systolic blood mm[Hg]Konstantin Penny [address] [place], [place] 0457004-15-2024 16:48-0400 Diastolic blood rkqyeyex03 mm[Hg]Konstantin Penny [address] [place], [place] 0457004-15-2024 16:48-0400Heart zqvw312 /minJokwaku Zohaib [address] [place], [place] 0457004-15-2024 16:48-0400Mean blood ldmvhlio645 mm[Hg]Konstantin Penny [address] [place], [place] 0457004-15-2024 16:48-0400 Respiratory rate18 /minJohn Zohaib [facility]04-15-2024 16:48-4864SjD7% (BldA) [Mass fraction]100 %Konstantin Penny [facility]04-15-2024 16:48-0400 Systolic blood omshizlq578 mm[Hg]Konstantin Penny [facility]04-15-2024 16:30-0400 Diastolic blood daxbljxi65 mm[Hg]Konstantin Penny [facility]04-15-2024 16:30-0400Mean blood zntstqzi345 mm[Hg]Konstantin Penny [facility]04-15-2024 16:30-0400 Respiratory rate18 /Stacie Penny [facility]04-15-2024 16:30-0400 Systolic blood cklthouj164 mm[Hg]Konstantin Penny [facility]04-15-2024 14:45-0400 Respiratory rate18 /Stacie Penny [facility]04-15-2024 14:13-0400Body ojjhoxjpqfn63.6 [degF]Konstantin Penny [facility]02-18-2024 18:01-0500 Diastolic blood nvkrvizu60 mm[Hg]Jignesh Dumont [facility]02-18-2024 18:01-0500Heart ogiq404 /Hugh Dumont [facility]02-18-2024 18:01-0500Mean blood ftprukvb95 mm[Hg]Jignesh Dumont [facility]02-18-2024 18:01-0500 Respiratory rate16 /Hugh Dumont [address] [place], [place] 0457002-18-2024 18:01-7129FtQ1% (BldA) [Mass fraction]99 %Jignesh Dumont [address] [place], [place] 0457002-18-2024 18:01-0500 Systolic blood mlnhgizp706 mm[Hg]Jignesh Dumont [address] [place], [place] 5280602-18-2024 17:00-0500 Diastolic blood atlfayzs17 mm[Hg]Jignesh Dumont [address]02-18-2024 17:00-0500Heart rate96 /minJignesh Dumont [address] [place], [place] [id number] 17:00-0500Mean blood mm[Hg]Jignesh Dumont [address] [place], [place] [id number] 17:00-0500 Systolic blood okdcgjbc020 mm[Hg]Jignesh Dumont [address] [place], [place] [id number] 16:07-0500 Diastolic blood swhhvofs78 mm[Hg]Jignesh Dumont [address]02-18-2024 16:07-0500Heart dhud877 /minJignesh Dumont [address] [place], [place] [id number] 16:07-0500Mean blood shpenghg682 mm[Hg]Jignesh Dumont [address] [place], [place] [id number] 16:07-0500 Respiratory rate19 /minJignesh Dumont [address] [place], [place] [id number] 16:07-9751LtN5% (BldA) [Mass fraction]100 %Jignesh Dumont [address] [place], [place] [id number] 16:07-0500 Systolic blood eoaxmdsg300 mm[Hg]Jignesh Dumont [facility]02-18-2024 16:06-0500 Respiratory rate18 /angeliqueJignesh Dumont [facility]02-18-2024 15:34-0500Body isnngavclzl26.88 [degF]Jignesh Dumont [facility]02-18-2024 15:34-0500Heart dlgx041 /angeliqueJignesh Dumont [facility]02-18-2024 15:34-0500 Respiratory rate18 /angeliqueJignesh Dumont [facility]02-06-2024 12:40-0500Body dgowbr702.1 cmDakelle Duran Other [employer] Other 11-18-2023 18:19-0500Diastolic blood arssglgv81 mm[Hg] DO Jennifer Duran Work Phone: [facility]11-18-2023 18:19-0500 Heart blen525 /ThongO Jennifer Duran Work Phone: [facility]11-18-2023 18:19-0500 Respiratory rate18 /ThongO Jennifer Duran Work Phone: [facility]11-18-2023 18:19-0500 SaO2% (BldA) [Mass fraction]99 %DO Jennifer Duran Work Phone: [facility]11-18-2023 18:19-0500 Systolic blood cfxrgked520 mm[Hg]DO Jennifer Duran Work Phone: [facility]11-18-2023 16:43-0500 Body .1 cmDO Jennifer Duran Work Phone: [facility]11-18-2023 16:43-0500 Body yuolhcpaudv71.1 [degF]DO Jennifer Duran Work Phone: [address] [place], [place] [id number] 16:43-0500 Body hzchhi79.3 kgDO Jennifer Duran Work Phone: [facility]11-12-2023 15:51-0500 Diastolic blood fqkpynko52 mm[Hg]Jignesh Dumont [address] [place], [place] [address]457011-12-2023 15:51-0500Heart rate98 /Hugh Dumont [address] [place], [place] [address]457[address]-12-2023 15:51-0500Mean blood lvxpoqhj12 mm[Hg]Jignesh Dumont [address] [place], [place] 5280611-12-2023 15:51-0500 Respiratory rate17 /Hugh Dumont [address] [place], [place] 0457011-12-2023 15:51-4357TzU0% (BldA) [Mass fraction]99 %Jignesh Dumont [address] [place], [place] 0457011-12-2023 15:51-0500 Systolic blood iemdndgn110 mm[Hg]Jignesh Dumont [address] [place], [place] 0457011-12-2023 15:00-0500 Diastolic blood pnoizadg98 mm[Hg]Jignesh Dumont [address] [place], [place] 0457011-12-2023 15:00-0500Heart rate85 /Hugh Dumont [address] [place], [place] 0457011-12-2023 15:00-0500Mean blood mm[Hg]Jignesh Dumont [address] [place], [place] 0457011-12-2023 15:00-0500 Respiratory rate16 /minJignesh Dumont [address] [place], [place] 0457011-12-2023 15:00-1775WdV9% (BldA) [Mass fraction]96 %Jignesh Dumont [address] [place], [place] 0457011-12-2023 15:00-0500 Systolic blood mm[Hg]Jignesh Dumont [address] [place], [place] 0457011-12-2023 14:00-0500 Diastolic blood uhoqkjai18 mm[Hg]Jignesh Tim [address] [place], [place] 0457011-12-2023 14:00-0500Heart rate99 /Hugh Dumont [address] [place], [place] 0457011-12-2023 14:00-0500Mean blood upgjehlc963 mm[Hg]Jignesh Dumont [address]11-12-2023 14:00-0500 Respiratory rate18 /Hugh Dumont [address]11-12-2023 14:00-1124PvQ7% (BldA) [Mass fraction]97 %Jignesh Dumont [address]11-12-2023 14:00-0500 Systolic blood oivicqhc409 mm[Hg]Jignesh Dumont [address]11-12-2023 13:29-0500Body ryovmpoqwcr85.14 [degF]Jignesh Tim [address]11-12-2023 13:29-0500Heart cubi045 /Hugh Dumont [address] [place], [place] 0457010-22-2023 00:20-0400 Diastolic blood nogdkite92 mm[Hg]DO Jennifer Duran Work Phone: [facility]10-22-2023 00:20-0400 Heart rate80 /minDO Jennifer Duran Work Phone: [facility]10-22-2023 00:20-0400 SaO2% (BldA) [Mass fraction]98 %DO Jennifer Duran Work Phone: [facility]10-22-2023 00:20-0400 Systolic blood jgoxttdt783 mm[Hg]DO Jennifer Enochivelisse Work Phone: 1(449)[address]10-21-2023 21:48-0400 Diastolic blood nzlxxdvi77 mm[Hg]DO Jennifer Kendallivelisse Work Phone: 1(080)[address] [place], [place] 7853610-21-2023 21:48-0400 Heart rate90 /ThongWesley Kendallivelisse Work Phone: 1(733)[address] [place], [place] 7853610-21-2023 21:48-0400 Respiratory rate20 /ThongO Jennifer Kendallivelisse Work Phone: 1(601)[address] [place], [place] 7853610-21-2023 21:48-0400 SaO2% (BldA) [Mass fraction]98 %DO Jennifer Kendallivelisse Work Phone: 1(128)[address] [place], [place] 7853610-21-2023 21:48-0400 Systolic blood eghxqqms746 mm[Hg]DO Jennifer Kendallivelisse Work Phone: 1(794)[address] [place], [place] 7853610-21-2023 20:23-0400 Body ivvzyo109.1 cmDO Jennifer Kendallivelisse Work Phone: 1(044)[address] [place], [place] 7853610-21-2023 20:23-0400 Body igzklgekhtb83.2 [degF]DO Jennifer Kendallivelisse Work Phone: 1(374)[address] [place], [place] 7853610-21-2023 20:23-0400 Body zjoqor23.64 kgDO Jennifer Kendallivelisse Work Phone: 1(199)[address] [place], [place] 7853610-17-2023 16:11-0400 Body lcwyvsxccrx25.8 [degF]DO Jennifer Wilber Work Phone: 1(593)[address] [place], [place] 7853610-17-2023 16:11-0400 Diastolic blood dymfvugr48 mm[Hg]DO Jennifer Kendallivelisse Work Phone: 1(428)[address] [place], [place] 7853610-17-2023 16:11-0400 Heart djas258 /Bartolo Duran Work Phone: 1(392)[address] [place], [place] 7853610-17-2023 16:11-0400 Respiratory rate16 /ThongWesley Duran Work Phone: 1(419)[address]10-17-2023 16:11-0400 SaO2% (BldA) [Mass fraction]98 %DO Jennifer Duran Work Phone: 1(754)[address] [place], [place] 7853610-17-2023 16:11-0400 Systolic blood cmyckbwv999 mm[Hg]DO Jennifer Duran Work Phone: 1(360)[address] [place], [place] 7853610-17-2023 06:35-0400 Body kdvbiv320.1 cmDO Jennifer Duran Work Phone: 1(644)[address] [place], [place] 7853610-17-2023 06:35-0400 Body jbgjli42.5 kgDO Jennifer Duran Work Phone: 1(184)[address] [place], [place] 7853610-17-2023 05:41-0400 Diastolic blood csamyycz58 mm[Hg]DO Jennifer Duran Work Phone: 1(050)[address] [place], [place] 7853610-17-2023 05:41-0400 Heart riso926 /ThongO Jennifer Duran Work Phone: 1(436)[address] [place], [place] 7853610-17-2023 05:41-0400 Respiratory rate18 /minDO Jennifer Duran Work Phone: 1(399)[address] [place], [place] 7853610-17-2023 05:41-0400 SaO2% (BldA) [Mass fraction]100 %DO Jennifer Duran Work Phone: 1(038)[address] [place], [place] 7853610-17-2023 05:41-0400 Systolic blood mm[Hg]DO Jennifer Duran Work Phone: 1(232)[address] [place], [place] 7853610-17-2023 01:39-0400 Body gjowqi048.1 cmDO Jennifer Duran Work Phone: 1(815)[address] [place], [place] 7853610-17-2023 01:39-0400 Body ltrhijdkdwo47.2 [degF]DO Jennifer Duran Work Phone: 1(068)[address] [place], [place] 7853610-17-2023 01:39-0400 Body boomik80 kgDO Jennifer Duran Work Phone: 1(533)[address] [place], [place] 7853608-27-2023 04:00-0400 Diastolic blood zjbzpvue17 mm[Hg]DO Jennifer Duran Work Phone: 1(249)876-[address] [place], [place] 0800408-27-2023 04:00-0400 Heart rate79 /Bartolo Duran Work Phone: 1(973)[address]08-27-2023 04:00-0400 Respiratory rate15 /Bartolo Duran Work Phone: 1(036)[address]08-27-2023 04:00-0400 SaO2% (BldA) [Mass fraction]99 %DO Jennifer Duran Work Phone: 1(206)[address]08-27-2023 04:00-0400 Systolic blood ygsjrpdd745 mm[Hg]DO Jennifer Duran Work Phone: 1(284)[address]08-26-2023 23:41-0400 Body mqsxra329.1 cmDO Jennifer Duran Work Phone: 1(781)[address]08-26-2023 23:41-0400 Body usajdlqctnk01 [degF]DO Jennifer Duran Work Phone: 1(639)[address]08-26-2023 23:41-0400 Body edadsb97.64 kgDO Jennifer Duran Work Phone: 1(146)[address]08-02-2023 14:40-0400 Body .1 cmDakelle Duran Other [facility] [employer] Other [id number] 14:40-0400Body mass index (BMI) [Ratio] 33.44 kg/g6Mevftkelle Duran Other [place] [employer] Other 559825-07-2631 14:40-0400Body tgtvioqhqav53.5 [degF]Jennifer Duran Other [place] [employer] Other 027712-89-4486 14:40-0400Body egnpga84.17 kgDakelle Duran Other [employer] Other 08-02-2023 14:40-0400Diastolic blood yoqmbucq47 mm[Hg] Jennifer Duran Other [employer] Other 08-02-2023 14:40-0400Respiratory rate18 /minDavigelacio Duran Other [employer] Other 08-02-2023 14:40-9826VrO0% (BldA) [Mass fraction]97 % Jennifer Duran Other [employer] Other 08-02-2023 14:40-0400Systolic blood mm[Hg] Jennifer Duran Other [employer] Other 926016-50-9905 16:20-0400Body gsmtto495.1 cmDakelle Duran Other [employer] Other 008333-26-4220 16:20-0500Body rcdbjy835.1 cmDakeilagelacio Duran Other [employer] Other 01-30-2023 16:20-0500Body mass index (BMI) [Ratio]31.2 kg/v8DnunvJennifer Duran Other [employer] Other 01-30-2023 16:20-0500Body rndwuayuaje51.2 [degF]Jennifer Duran Other [employer] Other 743029-31-3969 16:20-0500Body hhgtog60.05 kgDakelle Duran Other [employer] Other 01-30-2023 16:20-0500Diastolic blood aovffdbg75 mm[Hg] Jennifer Duran Other [facility] [employer] Other 01-30-2023 16:20-0500Respiratory rate18 /Jessica Duran Other [place] [employer] Other 01-30-2023 16:20-5947PsE2% (BldA) [Mass fraction]99 % Jennifer Duran Other [facility] [employer] Other 01-30-2023 16:20-0500Systolic blood cdvoaxge720 mm[Hg] Jennifer Duran Other [facility] [employer] Other 11-16-2022 04:00-0500Diastolic blood oucvvbae82 mm[Hg] DO Jennifer Duran Work Phone: 4(802)523-45[facility]11-16-2022 04:00-0500 Heart rate81 /minDO Jennifer Duran Work Phone: 5(292)257-98[facility]11-16-2022 04:00-0500 SaO2% (BldA) [Mass fraction]96 %DO Jennifer Duran Work Phone: [facility]11-16-2022 04:00-0500 Systolic blood ozdszplb880 mm[Hg]DO Jennifer Duran Work Phone: 8(641)490-35[facility]11-16-2022 03:56-0500 Body .1 cmDO Jennifer Duran Work Phone: 8(057)255-05[facility]11-16-2022 03:56-0500 Body iicosu59 kgDO Jennifer Duran Work Phone: 8(999)357-29[facility]11-16-2022 03:56-0500 Respiratory rate18 /minDO Jennifer Duran Work Phone: 4(210)782-97[facility]11-16-2022 00:13-0500 Body tbloaunszej45.2 [degF]DO Jennifer Duran Work Phone: [facility]10-31-2022 15:40-0400 Body xehswt252.1 cmDakelle Duran Other [employer] Other 10-31-2022 15:40-0400Body mass index (BMI) [Ratio] 30.37 kg/t3Crjxpkelle Duran Other [employer] Other 10-31-2022 15:40-0400Body yyqzgfmkteu21.8 [degF]Jennifer Duran Other [employer] Other 10-31-2022 15:40-0400Body qumjwy06.78 kgDakelle Duran Other [employer] Other 10-31-2022 15:40-0400Diastolic blood bfvjwisv27 mm[Hg] Jennifer Duran Other [employer] Other 10-31-2022 15:40-0400Respiratory rate18 /minDkitty Duarn Other [employer] Other 10-31-2022 15:40-5515PsF7% (BldA) [Mass fraction]98 % Jennifer Duran Other [employer] Other 10-31-2022 15:40-0400Systolic blood hurfylxu650 mm[Hg] Jennifer Duran Other [employer] Other 10-28-2022 13:32-0400Body kpyvwvlvfuy11.59 [degF]Chair Lei Work Phone: [facility]10-28-2022 13:32-0400Diastolic blood mm[Hg]Chair Lei Work Phone: [facility]10-28-2022 13:32-0400Heart sngn737 /minChair Fryburg Work Phone: [place] [address]-28-2022 13:32-0400Respiratory rate 18 /minChair Lei Work Phone: [place] [address]-28-2022 13:32-2003YaD6% (BldA) [Mass fraction]97 %Chair Fryburg Work Phone: [facility]10-28-2022 13:32-0400Systolic blood tjckisli066 mm[Hg]Chair Fryburg Work Phone: [facility]10-14-2022 13:54-0400Body temperature 97.9 [degF]Chair Fryburg Work Phone: [facility]10-14-2022 13:54-0400Diastolic blood lslvjryo20 mm[Hg]Chair Lei Work Phone: [facility]10-14-2022 13:54-0400Heart rate82 /min Chair Fryburg Work Phone: [facility]10-14-2022 13:54-0400Respiratory rate 18 /minChair Lei Work Phone: [facility]10-14-2022 13:54-3978SmY7% (BldA) [Mass fraction]100 %Chair Lei Work Phone: [facility]10-14-2022 13:54-0400Systolic blood mm[Hg]Chair Fryburg Work Phone: [facility]09-28-2022 13:54-0400Body .1 cmMadyson Ni REFERRAL COORDINATOR.FAMILY AND CONSUMER EDUCATION TEACHER Work Phone: [facility]09-28-2022 13:54-0400Body temperature 97.9 [degF]Madyson Ni APRNEbenezerFAMILY AND CONSUMER EDUCATION TEACHER Work Phone: [facility]09-28-2022 13:54-0400Body ctfsas14.37 kgMadyson Ni APRN.FAMILY AND CONSUMER EDUCATION TEACHER Work Phone: [facility]09-28-2022 13:54-0400Diastolic blood osmcwzvr84 mm[Hg]Madyson Ni APRN.FAMILY AND CONSUMER EDUCATION TEACHER Work Phone: [facility]09-28-2022 13:54-0400Heart rate95 /min Madyson Ni APRN.FAMILY AND CONSUMER EDUCATION TEACHER Work Phone: [facility]09-28-2022 13:54-0400Respiratory rate 16 /minMadyson Ni APRN.FAMILY AND CONSUMER EDUCATION TEACHER Work Phone: [facility]09-28-2022 13:54-5220SjC7% (BldA) [Mass fraction]100 %Madyson Ni APRN.FAMILY AND CONSUMER EDUCATION TEACHER Work Phone: [facility]09-28-2022 13:54-0400Systolic blood dqfbgcar924 mm[Hg]Madyson Ni APRN.FAMILY AND CONSUMER EDUCATION TEACHER Work Phone: [facility]06-24-2022 12:49-0400Blood Pressure LocationAurora Orzech [phone]-EinqhOhio[facility] 06-24-2022 12:49-0400Body bqvweermarw65.42 [degF][place] Orzech [phone]-CdtshOhiohealth [facility] 06-24-2022 12:49-0400Diastolic blood cgerfnrf52 mm[Hg] Yamilka Orzech [phone]-CymiuOhiohealth [facility] 06-24-2022 12:49-0400Heart ifxx049 /minAurora Orzech [phone]-ZvdgxOhiohealth [facility] 06-24-2022 12:49-4285PqH1% (BldA) [Mass fraction]99 % Yamilka Orzech [phone]-BmfssOhiohealth [facility] 06-24-2022 12:49-0400Systolic blood xbgwazys197 mm[Hg] Yamilka Lorenzo [phone]-WvthmOhiohealth [facility] 05-06-2022 09:10-0400Body wcqpjo880.1 cmDakelle Duran Other [place] [employer] Other 04-04-2022 19:31-0400Diastolic blood lfipjahu89 mm[Hg] DO Jennifer Duran Work Phone: [phone](129)528-82[facility]04-04-2022 19:31-0400 Heart rate87 /Bartolo Duran Work Phone: 0(203)035-77[facility]04-04-2022 19:31-0400 Respiratory rate18 /Bartolo Duran Work Phone: 7(142)653-30[facility]04-04-2022 19:31-0400 SaO2% (BldA) [Mass fraction]99 %DO Jennifer Duran Work Phone: 3(128)015-[address] [place], [place] 0800404-04-2022 19:31-0400 Systolic blood csdmaciu317 mm[Hg]DO Jennifer Duran Work Phone: 7(199)994-66[facility]04-04-2022 14:45-0400 Body myghmb077.1 cmDO Jennifer Duran Work Phone: 1(302)869-48[facility]04-04-2022 14:45-0400 Body mass index (BMI) [Ratio]30.7 kg/m2DO Jennifer Duran Work Phone: [phone](676)976-17[facility]04-04-2022 14:45-0400 Body irbekvdhmus25 [degF]DO Jennifer Duran Work Phone: 5(813)924-91[facility]04-04-2022 14:45-0400 Body acvglr51.91 kgDO Jennifer Duran Work Phone: 1(426)[address]11-09-2021 16:20-0500 Body yreeir615.1 cmDakelle Duran Other [employer] Other 11-09-2021 16:20-0500Body mass index (BMI) [Ratio] 32.28 kg/a5Meekpkelle Duran Other [employer] Other 11-09-2021 16:20-0500Body qrwxzzhigun28.3 [degF]Jennifer Duran Other [employer] Other 11-09-2021 16:20-0500Body kgDakelle Duran Other [employer] Other 11-09-2021 16:20-0500Diastolic blood dnpyddyj14 mm[Hg] Jennifer Duran Other [employer] Other 11-09-2021 16:20-5007GyA3% (BldA) [Mass fraction]98 % Jennifer Duran Other [employer] Other 11-09-2021 16:20-0500Systolic blood qpiwkoqf234 mm[Hg] Jennifer Duran Other [employer] Other Encounters Encounter DateEncounter TypeCare ProviderFacilityStart: 04-08-2025 End: 88-32-1135Zbbidiizr department patient visitJignesh DumontFacility:[facility] Start: 04-06-2025 End: 91-94-6008Dnioupsxm department patient visitJokwaku ParenteFacility:[facility]tart: 01-15-2025 End: 61-75-7229Rydfmqclv department patient visitChjani Dougherty Facility:[facility]art: 12-06-2024 End: 66-11-6764Aqmrtfmwp department patient visitNO PCP NO PCPProMedica New Cuyama HospitalStart: 10-01-2024 End: 37-42-6378gjdmjfikszRE PCP NO PCPProMedica New Cuyama HospitalStart: 10-01-2024 End: 56-66-5034Aecroapkf encounterCherie McMorganProMedica Call CenterComment on above:right sided abdominal painStart: 09-27-2024 End: 83-93-0682Dnyqlclrz department patient visitNO PCP NO PCPProMedica New Cuyama HospitalStart: 09-12-2024 End: 31-41-8994Uonxrocjd encounterAdiel Aparicio MD Work Phone: [facility], A Department of [facility] HospitalComment on above:AppointmentStart: 09-04-2024 End: 59-72-0522Ngmnrmigr department patient visitNO PCP NO PCPProMedica New Cuyama HospitalStart: 09-04-2024 End: 67-11-4283Kxuaejkio encounterDolores NewmanProMedica Call CenterComment on above:Abdominal Pain; NauseaStart: 09-03-2024 End: 73-04-6959ckocevzezcSyipsiplq [facility] Work Phone: Start: 09-03-2024 End: 92-91-0230Edtcqrx encounter procedureCritical Access Hospital Physician GroupDale General Hospital Work Phone: Start: 08-10-2024 End: 42-38-4024Orwkhhnnv department patient visitJignesh Dumont [facility] Start: 08-09-2024 End: 56-93-4539VindnfZoie BACON Work Phone: [facility], [facility] Hospitaltart: 08-05-2024 End: 83-99-8423Bjrkrelum department patient visitDimitri Vuong [facility] Start: 08-05-2024 End: 87-21-9686Djynrfaam department patient visitDimitri Vuong [facility] Start: 08-02-2024 End: 81-57-7643Jsgxzfcdv department patient visitNeha HannahMiami Valley Hospital Start: 08-01-2024 End: 37-95-2536Plsykgrxb department patient visitNO PCP NO PCPProMedica New Cuyama HospitalStart: 08-01-2024 End: 52-28-2095Pjvnxproq department patient visitKonstantin Jain MD Work Phone: [facility] Emergency MedicineStart: 07-29-2024 End: 99-53-7546Iyrsiklhi department patient visitJAJUAN HARDYMountain View Regional Medical CenterComment on above:Chronic pelvic pain in female (Primary Dx); Right lower quadrant abdominal painStart: 07-27-2024 End: 91-14-8685Rmnstztbb department patient visitNO PCP NO PCPProMedica New Cuyama HospitalStart: 07-21-2024 End: 20-06-9011Dezhnzmuw department patient visitNO PCP NO PCPProMedica New Cuyama HospitalStart: 07-14-2024 End: 66-82-3659Drtvldcfk department patient visitDonya Romano MD Work Phone: [facility] Emergency MedicineStart: 07-13-2024 End: 39-97-2916Qgkybeujt department patient visitNO PCP NO PCPProMedica New Cuyama HospitalStart: 07-11-2024 End: 61-69-2435Asiupwvsf department patient visitShalonda Bacon MD Work Phone: [facility] Emergency DepartmentComment on above: Generalized abdominal pain (Primary Dx)Start: 69-11-8533Fhhrltalr department patient visitNone ProviderFacility:[facility] HospitalStart: 86-29-9811Rhuzlotvu department patient visitNone ProviderFacility:[facility] HospitalStart: 07-07-2024 End: 73-83-4229Gtypnnnkr department patient visitNO PCP NO PCPProMedica New Cuyama HospitalStart: 06-27-2024 End: 51-35-7265Thkrjxnhc department patient visitDO Jordyn Willett Facility:[facility]MCStart: 06-27-2024 End: 73-53-2407Zwswfuseg department patient visitRandee Richardson MD Work Phone: [facility] Emergency DepartmentComment on above: Abdominal pain, right lower quadrant (Primary Dx)Start: 06-24-2024 End: 18-62-1428Zwzvrwvce department patient visitNovirginia Heath [facility] Start: 92-81-6410Nuqfvufkv department patient visitNone ProviderFacility:[facility] HospitalStart: 06-11-2024 End: 16-39-7555Kbwbquxfp encounterCoabi BACON Work Phone: [facility], A Department of [facility] HospitalComment on above:AppointmentStart: 06-11-2024 End: 65-19-1773mgezqpgzbhYKPG D BROOKENSProMedica Jara HospitalStart: 06-10-2024 End: 19-11-6539vlftkthvyqAY PCP NO PCPProMedica Jara HospitalStart: 06-09-2024 End: 03-57-4101Gmizpvxxh department patient visitNO PCP NO PCPProMedica New [facility] HospitalStart: 06-09-2024 End: 82-79-3905Rsdgldqgf encounterGeorgette ReynoldsProMedica Call CenterComment on above:abnormal CTStart: 05-11-3882Yxfdihubz department patient visitNone ProviderFacility:[facility] HospitalStart: 06-05-2024 End: 41-45-3314Difvnbmvh department patient visitNO PCP NO PCPProMedica New [facility]uy[facility] HospitalStart: 05-27-2024 End: 03-95-9037Odgglysgz department patient visitROSE Galindo HospitalStart: 04-06-2024 End: 62-47-8568Dzvqtgiyxy and management of inpatientNO PCP NO PCPProMedica Jara HospitalStart: 04-05-2024 End: 38-98-8359Wygziqjhc department patient visitNO PCP NO PCPProMedica New [facility] HospitalStart: 04-03-2024 End: 29-53-7915Dlgqjovdwo and management of inpatientNO PCP NO PCPProMedica Jara HospitalStart: 17-18-6981Zuwehrn encounter statusGeorraúl [facility] Hospitaltart: 03-28-2024 End: 86-31-2533nxyvsmqvzzJOLE Leila Vuca [facility] HospitalStart: 03-28-2024 Encounter for other preprocedural examinationADAM Leila [facility]CHESTERMerlinMedica [facility] HospitalStart: 03-23-2024 End: 08-19-6479euzlddquroKzinpftmmHolmes County [facility] Work Phone: Start: 03-23-2024 End: 44-76-7303Lchwbuq encounter procedureCritical Access Hospital Physician GroupDale General Hospital Work Phone: Start: 03-07-2024 End: 52-60-6820Whserucrj department patient visitNO PCP NO PCPProMedica New [facility]uyama HospitalStart: 03-03-2024 End: 79-93-6943Rauahgenb department patient visitJesonia Rivas DO Work Phone: [facility] [place] [facility] MedicineStart: 02-24-2024 End: 02-37-9030Fytrkjjcl department patient visitAshley Delcid MD Work Phone: [facility] [place] [facility] MedicineStart: 02-16-2024 End: 16-70-5263Likuezumz department patient visitJennifer Moore MD Work Phone: [facility] [place] [facility] MedicineStart: 02-13-2024 End: 82-46-9229Thhzywbug department patient visitNovirginia Heath [facility] Start: 01-27-2024 End: 19-18-6922Vxhfnscom department patient visitMICHAEL P NEVERAUSKASProMedica New Cuyama HospitalStart: 01-27-2024 End: 37-11-1970Eillmvpew department patient visitNO PCP NO PCPProMedica New Cuyama HospitalStart: 01-22-2024 End: 13-07-8488Isqxpsacl department patient visitMarc Chi Camejo DO Work Phone: [phone] [place] [address] EDComment on above:Cyst of left ovary (Primary Dx)Start: 01-19-2024 End: 39-60-7583xieccqsyjrVN David Girvin Work Phone: [facility] Work Phone: Start: 01-19-2024 End: 99-04-5004Ncoyhkk encounter procedureDO Jennifer Duran Work Phone: [facility] Work Phone: Start: 45-95-7230rqcrnobjmvYS Jennifer Duran Work Phone: [facility] Work Phone: Start: 84-11-6677Pth-patient / Non-visitDO Jennifer Duran Work Phone: [facility] Work Phone: Start: 11-25-2023 End: 72-23-9585Dhuocmv encounter procedureDO Jennifer Duran Work Phone: [facility] [place] Work Phone: Start: 11-25-2023 End: 44-85-2802mxroqbazaoYE David Girvin Work Phone: [facility] Work Phone: Start: 11-23-2023 End: 20-70-5352frgaaqyuibQUTW C WALTERProUniversity Hospitals St[facility] HospitalStart: 11-09-2023 End: 41-21-3919jntccopnuaZPLUDafne Main HospitalStart: 11-08-2023 End: 95-36-5714Houhnsgyq department patient visitDO Jennifer Duran Work Phone: [facility] Work Phone: Start: 11-08-2023 End: 81-96-6672Brcixpkqm department patient visitRuth Annleila Chi Camejo DO Work Phone: [phone] [place] [address] EDComment on above:Toothache (Primary Dx)Start: 10-19-2023 End: 65-22-8674caeiozyqwrEUQEM FAZIONot AvailableStart: 10-18-2023 End: 16-11-7444ypgpymqtbvWqfnemrdmHolmes County [facility] Work Phone: Start: 10-18-2023 End: 21-98-0731Sondyyu encounter procedureCritical Access Hospital Physician Group-[facility] Work Phone: Start: 09-29-2023 End: 93-17-9771Uvqpidpfx department patient visitRitesh Heath [facility] Start: 09-26-2023 End: 36-45-8774Buyjxyeqh department patient visitKonstantin Zohaib [facility] Start: 09-06-2023 End: 41-20-7627Dcfspytal department patient visitSCODAVID [facility] Hospitaltart: 07-31-2023 End: 30-17-0660Wxoqkplih department patient visitJignesh Dumont [facility] Start: 07-28-2023 End: 17-74-9520rchtgdajucNRVCRNBKZ [facility] Work Phone: Start: 07-28-2023 End: 09-28-4774Afycqta encounter procedurePHYSICIAN MILLER [facility] Work Phone: Start: 07-19-2023 End: 84-81-3674jajjzddptlOwmsl Girvin Other [employer] Other Start: 91-24-2028Vscadbinc encounterDavigelacio Conde [facility] BellevueStart: 06-22-2023 End: 94-32-6171Kmqvxnmwg department patient visitEVGENY SEN MD Facility:[facility]: 06-07-2023 End: 90-37-3798tryystwgawBfzar Girvin Other [employer] Other Start: 80-63-0101Ehyicfaav encounterDavid Elton [facility]Start: 05-16-2023 End: 66-88-7234kxegtrilapOecei Girvin Other noRESAAS Other Start: 06-93-9985Dmejsvbnm encounterDavigelacio [facility]de [facility]ueStart: 04-30-2023 End: 60-62-3885Pfpclojyx department patient visitDO Jennifer Duran Work Phone: [facility] [place] Work Phone: Start: 04-24-2023 End: 02-66-1426Smhqsvhzp department patient visitJignesh Dumont [facility] Start: 04-18-2023 End: 61-53-2017tpfxztcddiCwhsd Girvin Other noRESAAS Other Start: 53-71-0668Utbpztfet encounterDavid Elton [facility] [place]Start: 04-11-2023 End: 48-78-0592ykkrypzggtLadek Girvin Other [employer] Other Start: 85-47-1836Bjdifjnxf encounterDavid WilberFPG [facility] Medicine [place]vueStart: 04-04-2023 End: 26-23-6338bslhfbhqbgJclmy Girvin Other [facility]a Online Other Start: 03-92-2939Yotehqqbl encounterDavid SixtoG [facility] Medicine BellevueStart: 04-02-2023 End: 56-82-9576Iwrkbqexv department patient visitDO Jennifer Duran Work Phone: [facility]-Emergency Room Work Phone: Start: 04-01-2023 End: 33-39-0341irazrzbtklPqurd Girvin Other [facility] [employer] Other Start: 43-62-1659Swxjvfabr encounterDavid SixtoG Family Medicine [place]vueStart: 90-81-0682Mcwidjjwf encounterDakeilad SixtoG [facility] [place]vueStart: 03-29-2023 End: 08-13-4962Tcwswovyrd and management of inpatientDO Jennifer Duran Work Phone: [facility]-3 [facility] Surg Work Phone: Start: 03-29-2023 End: 22-99-4699sdboburnkxf encounterDO Jennifer Duran Work Phone: [facility] Work Phone: Start: 03-29-2023 End: 34-53-5003wtjwnpxwslOvago GirStill[employer] Other Start: 03-13-2023 End: 24-56-9496xzwjkoimpxDS Jennifer Duran Work Phone: [facility] Work Phone: Start: 03-13-2023 End: 03-97-6712Suoaojo encounter procedureDO Jennifer Kendallivelisse Work Phone: [facility]-Flu VaccineStart: 03-02-2023 End: 49-34-1787walpfinacxJztko Girvin Other noRESAAS Other Start: 15-47-5996Smvvxihut encounterDavigelacio Conde [facility] BellevueStart: 02-05-2023 End: 34-07-3327Frfnupfrg department patient visitDO Jennifer Wilber Work Phone: [facility]-Emergency [facility] Work Phone: Start: 01-12-2023 End: 14-91-8305aavpehiybsEvtts Girvin Other noRESAAS Other Start: 65-51-1917Jwxkna outpatient visit 15 minutes Jennifer Conde [facility] [place]Start: 12-09-2022 End: 21-12-8666kgdyktfjsxUaytx Girvin Other noRESA[employer] Other Start: 09-02-6147Qywgpjhev encounterDavigelacio Conde [facility] BellevueStart: 10-11-2022 End: 88-77-6832azaxlqxuznMfjvb Girvin Other no[employer] Other Start: 51-62-0643Qajystqqw encounterDavigelacio HensonG [facility] Medicine [place]vueStart: 09-22-2022 End: 60-19-8086otqyhttueiCvmgw Girvin Other noRESAAS Other Start: 13-05-5508Jllplywve encounterDavigelacio Conde [facility] Medicine BellevueStart: 07-28-2022 End: 05-98-0379jqwwmusgdiJCCRR PARKERFacility:Z7Xuege: 07-12-2022 End: 99-23-7939fvsbvccbeiYtcie Girvin Other noRESAAS Other Start: 12-41-9874Htbdzj outpatient visit 15 minutes Jennifer Conde [facility] [place]vueStart: 62-89-5567Ngjwgbtos encounter Jennifer Conde [facility] [place]vueStart: 06-02-2022 End: 05-16-2648dicyofpbadLwqdn Girvin Other noRESAAS Other Start: 73-08-3739Ktqptznel encounterDakelle Conde [facility] [place]vueStart: 05-04-2022 End: 07-77-9873cqqtreiaedCtiuk Girvin Other noRESAAS Other Start: 52-91-6000Xlckpjmaj encounterDavigelacio Conde Family Medicine BellevueStart: 52-51-5184Vnjvtzqms encounterMadyson Ni APRN.FAMILY AND CONSUMER EDUCATION TEACHER Work Phone: Hematology/OncologyComment on above:Lab OrdersStart: 64-08-3789Pftpeqrjlk and management of inpatientDO Jennifer Duran Work Phone: [facility]-[address] Start: 59-29-0165ozrafhndlis encounterDO Jennifer Duran Work Phone: [facility] Work Phone: Start: 04-12-2022 End: 00-08-4049ajuvhnvceeLmptk Girvin Other [employer] Other Start: 58-88-2455Kdyehy outpatient visit 15 minutes Jennifer Conde [facility] [place]vueStart: 47-61-3324Qetjyukjt encounter Jennifer Conde [facility]Start: 04-09-2022 End: 80-37-0486lqyahkhctuIpfq M Freeman 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Arts & MedicineComment on above:Art TherapyIron deficiency anemia due to chronic blood loss (Primary Dx); Malabsorption of iron; Cyst of left ovaryStart: 03-26-2022 End: 97-73-7662labascgdebHAYIJ MARTINEZFacility:[facility] Hospitaltart: 03-26-2022 End: 59-15-1365vsnvlkqshjAyako [address] [place] Work Phone: Hematology/OncologyComment on above:Iron deficiency anemia due to chronic blood loss (Primary Dx); Malabsorption of iron; Cyst of left ovaryStart: 34-69-4282Tmyacncae encounterSharon HERNANDEZ Hematology/OncologyComment on above:Social Work ServicesStart: 03-10-2022 End: 83-58-8993qonepqgfazAorii Martinez APRN.CNP Work Phone: Hematology/OncologyComment on above:Iron deficiency anemia due to chronic blood loss (Primary Dx); Malabsorption of ironStart: 03-10-2022 End: 58-73-4204Xkifyju encounter procedureMadyson Ni APRN.CNP Work Phone: SANDUSKYStart: 97-70-8975Gwsjfxdbi encounterMadyson Ni APRN.CNP Work Phone: Hematology/OncologyComment on above:Lab OrdersStart: 02-16-2022 End: 70-02-3429zjcltxkaulMoahe Girvin Other [employer] Other Start: 53-79-7430Uxghunzmg encounterDakelle Conde [facility]tart: 02-12-2022 End: 63-29-6585Zfueula encounter Nadine Duran Work Phone: [facility] CampusStart: 01-07-2022 End: 89-24-6294zjgnlunmdpFbfxr Girvin Other [employer] Other Start: 99-29-5000Xqwtophiy encounterDavid Elton [facility] [place]vueStart: 12-04-2021 End: 85-70-7125Vkfumxf encounter procedureAurora X Orzeomer [phone]-DpmviOhiohealth [facility] Start: 10-29-2021 End: 33-05-8413alkaihbdhgDtcwc Girvin Other noRESAAS Other Start: 53-21-1426Humachlru encounterDavid Elton [facility] [place]vueStart: 10-16-2021 End: 95-18-7170ksbkmihoodNgyth Girvin Other noRESAAS Other Start: 67-35-0790Dvvsdw outpatient visit 15 minutes Jennifer Conde [facility] [place]vueStart: 09-21-2021 End: 70-77-2135cbqwqvtlffGxwnn Girvin Other noRESAAS Other Start: 82-35-4801Fbljtnzbl encounterDavid Elton [facility] [place]vueStart: 09-14-2021 End: 63-25-9034Eqqulstdq department patient visitDO Jennifer Duran Work Phone: [facility]-Emergency RoomStart: 08-18-2021 End: 63-83-7411edltiqmvteUvgtz Girvin Other noRESAAS Other Start: 64-83-6032Ihzmlvvkv encounterDavigelacio Conde [facility] [place]vueStart: 08-11-2021 End: 77-39-9500ufvrzxraoaTrjer Girvin Other noRESAAS Other Start: 90-49-0194Xxdkvjnqm encounterDavigelacio Conde [facility] [place]vueStart: 08-03-2021 End: 08-91-2128dpbiugajfiGekny Girvin Other noRESAAS Other Start: 31-07-7847Tdjnwbhrv encounterDavigelacio Conde [facility] [place]vueStart: 07-04-2021 End: 53-83-6019Hpvlftr encounter procedureDO Jennifer Duran Work Phone: [facility] CampusStart: 06-04-2021 End: 38-21-8826jusncgjmmwDbmib Girvin Other noRESAAS Other Start: 63-19-8193Dxcfzxgmd encounterDavigelacio Conde [facility] [place]vueStart: 05-18-2021 End: 04-52-3694hljqcaqzgkKwpql Girvin Other [employer] Other Start: 09-28-8210Zpkjkjwoi encounterDakelle Conde [facility] CenterueStart: 04-21-2021 End: 06-66-9745gmimxudqivJcikf Girvin Other noRESAAS Other Start: 05-38-4530Zogzaqvhu for general adult medical examination without abnormal findingsDakelle KendallivelissePRESC[facility] [place] Start: 69-64-0646Bwggxsfo preventive med est patient 18-39 yrsDavid [facility] For ChildrenivelissePRESCOTT [facility] [place] Procedures DateProcedureProcedure DetailPerforming ClinicianStart: 54-39-1522Fcazqfcrcdmut metabolic panelRandee Richardson MD Work Phone: Start: 22-16-7175Udtlgsgkbn microscopic onlyRandee Richardson MD Work Phone: Start: 76-31-4719Kcbvz dip stick/tablet rgnt auto w/o microscopyRandee Richardson MD Work Phone: Start: 97-08-3547Wcnyss-up visitAdventHealth Porter Leila APARICIO Start: 62-63-8802Criuidwieg microscopic onlyAshley Delcid MD Work Phone: Start: 92-94-4863Oavxqtlkda, reagent strip without microscopyAshley Delcid MD Work Phone: Start: 71-10-5176Uyvaazwf blood count with white cell differential, automatedAshley Delcid MD Work Phone: Start: 02-24-2024 End: 08-41-7777Rvtkxzjuoygmr metabolic panelAshley Delcid MD Work Phone: Start: 35-87-5786Mj abdomen & pelvis w/contrast materialDakelle Moore MD Work Phone: Start: 53-59-4785Dlnnjybqet exam chest single view Jennifer Moore MD Work Phone: Start: 02-16-2024 End: 93-65-1138Oxplmxy serum plasma/whole bloodDaklele Moore MD Work Phone: Start: 99-27-7599Gdqfsfqd blood count with white cell differential, automatedJennifer Moore MD Work Phone: Start: 70-91-4195OY of paranasal sinus without contrastDO Jennifer Duran Work Phone: Start: 91-07-7085Uspfzr echographyDO Jennifer Duran Work Phone: Start: 01-33-8908Gvleoqtcorsy echographyDO Jennifer Duran Work Phone: Start: 59-00-8704Ibwzvmpx tomography of abdomen and pelvis with contrastDO Jennifer Duran Work Phone: Start: 15-74-4522Yuzoroiriyzz echographyDO Jennifer Duran Work Phone: Start: 28-84-2650Kkxaom echographyDO Jennifer Duran Work Phone: Start: 00-38-1468Fmtnxj echographyDO Jennifer Duran Work Phone: Start: 27-40-1285Uaowdbvsgvza echographyDO Jennifer Duran Work Phone: Start: 54-10-4068Gwcwfjmr tomography of abdomen and pelvis with contrastDO Jennifer Duran Work Phone: Start: 67-61-7603Pgmegtbj tomography of abdomen and pelvis with contrastDO Jennifer Duran Work Phone: Start: 98-32-7313Vjsauj echographyDO Jennifer Duran Work Phone: Start: 05-82-8021Wjycapccqzlb echographyDO Jennifer uDran Work Phone: CholecystectomyRitesh Heath HysterectomyRitesh SellABand Plan of Treatment DateCare ActivityDetailAuthorStart: 65-38-5661Salhc BMI ScreeningAdult BMI ScreeningGrand Lake Joint Township District Memorial Hospitalca [facility] SystemStart: 39-86-3770Fvsiptz ScreeningTobacco ScreeningGrand Lake [facility] District Memorial Hospitalca [facility] SystemStart: 50-59-9672Rkmebfh ScreeningTobacco ScreeningGrand [facility] Hospitalca [facility] SystemStart: 38-11-7702Nsgrk BMI ScreeningAdult BMI ScreeningGrand Lake [facility] Memorial Hospitalca Health SystemStart: 78-80-5350Qdornkv ScreeningTobacco ScreeningGrand [facility] Hospitalca Health SystemStart: 66-18-3578Rmtvy BMI ScreeningAdult BMI ScreeningGrand Lake [facility] Hospitalca [facility] SystemStart: 82-67-9499Bsuuq BMI ScreeningAdult BMI ScreeningGrand [facility] Hospitalca [facility] SystemStart: 45-45-0742Btbcjop ScreeningTobacco ScreeningGrand [facility] Hospitalca [facility] SystemStart: 96-72-8644Lzpqiucnc vaccinationInfluenza VaccineLima Memorial Hospital SystemStart: 09-12-2024 End: 12-64-7291Rosnfeb encounter procedureProMedica Gynecology Oncology, A [facility] of [facility] Hospitaltart: 11-47-6126HYSJX-19 VACCINE ( season)COVID-19 VACCINE ( season)[facility]viSentara [facility] Medical Center SystemStart: 30-64-0297AXBZO-19 Vaccine ()COVID-19 Vaccine ( season)[facility] SystemStart: 50-35-6442Yngkaveum vaccinationAviSentara RMH Medical Center SystemStart: 31-56-7858Bmzjcncwe vaccinationFlu vaccine (#1)[facility]Start: 35-63-0993Gnszooy referralC[facility] Clinic [facility] Work Phone: Start: 27-86-8563Alvccqsxofzhh metabolic 2000 panel - Serum or PlasmaAkron Children's Hospitaltart: 60-98-3857SkekpeaebAkron Children's Hospitaltart: 84-27-6751TqfimanxeBrown Memorial Hospital CenterStart: 16-12-5528Ohyjxodc to gynecologistBrown Memorial Hospital CenterStart: 58-05-8887Abwemtpd admissionBrown Memorial Hospital CenterStart: 03-29-2023 [facility] CenterStart: 74-29-1929Vrieravb tomography of abdomen and pelvis with contrastCT abdomen pelvis w [facility] Centertart: 71-84-0219LN Abdomen and Pelvis W contrast [facility] CenterStart: 89-70-1289Ladqwzsmfjtw echographyUS transvaginBucyrus Community Hospital CenterStart: 86-62-8981JX Pelvis transvaginalBrown Memorial Hospital CenterStart: 25-81-3520Rguswx echographyUS pelvic completeBrown Memorial Hospital CenterStart: 65-96-4119EO PelvisBrown Memorial Hospital CenterStart: 63-41-2855WOBED-19 Vaccine ( season)COVID-19 Vaccine ()[facility]ITALStart: 93-30-3199Hvqmtx echographyUS pelvic [facility] CenterStart: 29-52-9445GE Pelvis [facility] CenterStart: 83-38-3606Ytsuwripejrx echographyUS transvaginalFirAkron Children's Hospitaltart: 78-30-5784PK Pelvis transvaginalAkron Children's Hospitaltart: 03-09-6277Qwfjwnts tomography of abdomen and pelvis with contrastCT abdomen pelvis w [facility] Centertart: 53-84-6409AY Abdomen and Pelvis W contrast IV [facility] Hospitaltart: 05-05-2022 End: 22-57-9315TLC W Auto Differential panel - BloodCBC + DIFF Lab Routine Iron deficiency anemia due to chronic blood loss Malabsorption of iron Expected: 05/05/2022, Expires: 07/05/2022[facility] Work Phone: Comment on above:Expected: 05/05/2022, Expires: 07/05/2022Start: 05-03-2022 End: 16-54-3198Qqldhzdirhljx metabolic 2000 panel - Serum or PlasmaCOMP METABOLIC PANEL Lab Routine Iron deficiency anemia due to chronic blood loss Expected: 05/03/2022, Expires: 07/03/2022[facility] Work Phone: Comment on above:Expected: 05/03/2022, Expires: 07/03/2022Start: 88-62-8232Bxemgr echographyUS pelvic completeAkron Children's Hospitaltart: 39-57-7904PC PelvisAkron Children's Hospitaltart: 95-83-6857YB Abdomen and Pelvis WO [facility] Start: 99-97-6228FX of abdomen and pelvis without contrastCT abdomen pelvis wo [facility] Centertart: 60-72-8296Prwzmhotsnve echographyUS transvaginDiley Ridge Medical Centertart: 28-31-0810BJ Pelvis transvaginalAkron Children's Hospitaltart: 02-23-2022 End: 47-81-5870NUX W Auto Differential panel - BloodCBC + DIFF Lab Routine Iron deficiency anemia due to chronic blood loss Expected: 02/23/2022 (Approximate), Expires: 02/20/2023[facility] Work Phone: Comment on above:Expected: 02/23/2022 (Approximate), Expires: 02/20/2023Start: 02-23-2022 End: 13-50-5148Owdsootfj (Vitamin B12) [Mass/volume] in Serum or PlasmaVITAMIN B12 BLOOD Lab Routine Iron deficiency anemia due to chronic blood loss Expected: 02/23/2022(Approximate), Expires: 02/20/2023[facility] Work Phone: Comment on above:Expected: 02/23/2022 (Approximate), Expires: 02/20/2023Start: 02-23-2022 End: 01-31-5130Zxgqvkorpktnl metabolic 2000 panel - Serum or PlasmaCOMP METABOLIC PANEL Lab Routine Iron deficiency anemia due to chronic blood loss Expected: 02/23/2022 (Approximate), Expires: 02/20/2023[facility] Work Phone: Comment on above:Expected: 02/23/2022 (Approximate), Expires: 02/20/2023Start: 02-23-2022 End: 32-86-6173Dybyswkp [Mass/volume] in Serum or PlasmaFERRITIN BLD Lab Routine Iron deficiency anemia due to chronic blood loss Expected: 02/23/2022 (Appr oximate), Expires: 02/20/2023[facility] Work Phone: Comment on above:Expected: 02/23/2022 (Approximate), Expires: 02/20/2023Start: 02-23-2022 End: 61-53-1500Urjttx [Mass/volume] in Serum or PlasmaFOLATE SERUM Lab Routine Iron deficiency anemia due to chronic blood loss Expected: 02/23/2022 (Appr oximate), Expires: 02/20/2023[facility] Work Phone: Comment on above:Expected: 02/23/2022 (Approximate), Expires: 02/20/2023Start: 02-23-2022 End: 83-30-0792Ffjb and Iron binding capacity panel - Serum or PlasmaIRON + TIBC Lab Routine Iron deficiency anemia due to chronic blood loss Expected: 02/23/2022 (Approximate), Expires: 02/20/2023[facility] Work Phone: Comment on above:Expected: 02/23/2022 (Approximate), Expires: 02/20/2023Start: 40-21-0127Twhqosvyt vaccinationINFLUENZA (#1)[facility]: 44-83-9139BUMBZHRCNF ASSESSMENTDEPRESSION ASSESSMENTOhioHealth Van [facility] Hospitaltart: 24-33-2276PPJGU-19 VACCINE (3 - Booster for Moderna series)COVID-19 VACCINE (3 - Booster for Moderna series)[facility] Hospitaltart: 53-53-5216NINMG- 19 VACCINE (3 - Booster for Moderna series)COVID-19 VACCINE (3 - Booster for Moderna series)[facility]: 33-81-8411CNU TESTINGHPV TESTINGOhioHealth Van Wert Hospitaltart: 29-31-9353Smjndbjbq for malignant neoplasm of cervixBON WHITE HOSPITALStart: 82-91-4908BZP TESTINGPAP TESTINGOhioHealth Van Wert Hospitaltart: 47-76-3348Ckyznugek for malignant neoplasm of cervixB[facility] WHITE HOSPITAL Start: 24-90-9186PGxU,Tdap and Td Vaccines (1 - Tdap)DTaP,Tdap and Td Vaccines (1 - Tdap)[facility] Hospitalt[facility]: 66-39-8169HWqQ/Tdap/Td vaccine (1 - Tdap)DTaP/Tdap/Td vaccine (1 - Tdap)[facility]ITALStart: 2006 Hepatitis B vaccinationHEP B VACCINE (1 of 3 - 19+ 3-dose series)[facility]: 07-49-9575Xmqbcfvin B vaccine (1 of 3 - 19+ 3-dose series)Hepatitis B vaccine (1 of 3 - 19+ 3-dose series)[facility]ITALStart: 2006 Third diphtheria, tetanus and acellular pertussis (DTaP) vaccinationTDAP (ADULT) [facility]: 80-36-8621Fwzyi microalbumin profileDTAP,TDAP,TD (1 - Tdap)[facility]tart: 80-48-2916Aaiwp BMI Follow Up PlanAdult BMI Follow Up PlanProMcKitrick Hospitaltart: 68-25-1016NFPRPLGCR C SCREENINGHEPATITIS C SCREENINGOhioHealth [facility]ert Hospitaltart: 39-96-0375Ydpypiigv C screeningHepatitis C screenBON City Hospital: 06-64-7471RZF SCREENINGHIV SCREENING [facility]rt: 65-10-7351BXD screeningBON City Hospital: 45-49-6462Avlunooas vaccine (1 of 2 - 13+ 2-dose series)Varicella vaccine (1 of 2 - 13+ 2-dose series)[facility]: 24-99-4273Bobaz depression screening assessmentDEPRESSION SCREENINGSheltering Arms Hospitalrt: 1999 Depression ScreenDepression ScreenBON City Hospital: 01-11-1988 Varicella vaccine (1 of 2 - 2-dose childhood series)Varicella vaccine (1 of 2 - 2-dose childhood series)[facility]: 59-48-8758ZACQQYASN B (1 of 3 - 3-dose series)HEPATITIS B (1 of 3 - 3-dose series)[facility]: 39-37-3733Kfdjgmwcs B vaccine (1 of 3 - 3-dose series)Hepatitis B vaccine (1 of 3 - 3-dose series)[facility]: 06-15-9134Lfnbbxdbw C screening HEPATITIS C VIRUS SCREENINGSt. Rita's Hospitaltart: 87-52-7094Pergowj vaccinationTETANTriHealthCT Sinuses WO contrastGrant HospitalPatient EducationBrown Memorial Hospital Ctr Work Phone: Patient referralBrown Memorial Hospital Ctr Work Phone: End: 02-28-2931Ueepoypw ECGECG ECG STAT One Time for 1 Occurrences starting 02/16/2024 until 4ASelect Medical [facility] Hospital SystemComment on above:One Time for 1 Occurrences starting 02/16/2024 until 4CBapt[facility] Immunizations Immunization DateImmunizationNotesCare JdwyvbiyMpvyfyok16-02-5298cmstllpxc, injectable, quadrivalent, contains preservativeGrant Hospital 65-12-6374wjqzpmjyo virus vaccine, unspecified formulationJennifer Moore MD Work Phone: [address] [place], [place] [address]Razogn49-47-6334azjqelwmw, injectable, quadrivalent, preservative freeDavid Girvin Other [facility]10-19-2021influenza, seasonal, injectableDavid Girvin Other [facility]01-20-2021COVID-19 Vaccine Moderna - Documentation Purposes OnlyDavid Girvin Other [facility]12-23-2020COVID-19 Vaccine Moderna - Documentation Purposes OnlyDavid Girvin Other [facility]06-30-2009measles, mumps and rubella virus vaccineAurora Orzech 702-1275Gsswxc-ZmckiOhiohealth [facility] NEGATED: Highlighted row has not occurred!03-23-2019 influenza, seasonal, injectablePatient ObjectionDavid Girvin Other [facility] Payers DatePayer CategoryPayerPolicy [id number]-qva [id number] Cross Blue Shield Managed Care - [id number].9.236044.508.62471-54-4516Vrearkf 1.2.840.786529.1.13.159.2.7.3.989[id number] 2.0.1.503937.3.579.2.27646-26-2332Amslamy21103362 2.0.1.188710.3.579.2.50026-43-2074Iaystrb6411587 2.0.1.045075.3.579.2.[id number] 2.16.840.1.737377.3.579.2.333171-50-2287Pbanaqw74262362 2.16840.1.531546.3.579.2.426029-41-4833Nsrebxr98684729 2.16840.1.467181.3.579.2.760227-22-1121Meppbqb69990340 2.840.1.722354.3.579.2.972090-21-0150Tubsron30705078 2.840.1.287037.3.579.2.537647-55-3386Cxwajpb67570755 2.0.1.651793.3.579.2.020657-81-4350Lfuunrf12376446 2.840.1.533555.3.579.2.338286-98-4045Bcyimvk91705816 2.0.1.185971.3.579.2.392811-11-0564Dvothiv30139145 2.0.1.925015.3.579.2.817322-63-1232Nzwfidd31229554 2.840.1.515172.3.579.2.868328-33-7068Jvqdjkg22032017 2.840.1.338435.3.579.2.40890-56-0394Mhoextf96214548 2.840.1.913189.3.579.2.21001-43-0729Mftfuyf53508596 2.840.1.120053.3.579.2.03251-96-1157Yeurqqw84596859 2.840.1.454937.3.579.2.38739-39-5609Xzfrsyc00602809 2.16840.1.350174.3.579.2.03256-57-4253Ctjvuiv04667480 2.16840.1.443119.3.579.2.98651-14-6902Bvliybx55355633 2.16840.1.516106.3.579.2.73265-68-9179Vpgeooc39776301 2.16840.1.840465.3.579.2.49186-07-5342Xckljet14377790 2.16840.1.117628.3.579.2.29351-13-1819Zmzdocd26063483 2.160.1.401483.3.579.2.89638-50-4186Tlpcdrr40071229 2.840.1.505975.3.579.2.88754-18-0129Eozdgtg89901912 2.0.1.065603.3.579.2.75901-23-6156Puheciv27787127 2.840.1.558761.3.579.2.53022-29-4104Ilqniri43364275 2.0.1.108788.3.579.2.41328-70-4416Swtvgyw71919197 2.840.1.433309.3.579.2.69833-83-9005Zffhbsn12747724 2.0.1.414292.3.579.2.79792-49-7926Xvwesxu36737887 2.16840.1.489362.3.579.2.42888-45-8055Autarpm09274790 2.16840.1.402834.3.579.2.30615-43-6683Dsoqgbz88668625 2.16840.1.695618.3.579.2.01748-74-9010Cwrnwso51611207 2.16840.1.589764.3.579.2.05317-62-6028Jwldjcn97115779 2.16840.1.014750.3.579.2.68827-02-7528Duvwdmp15328159 2.16840.1.608097.3.579.2.21223-11-9570Daovymz85391010 2.16840.1.668526.3.579.2.64750-06-2624Dlqfllh60381873 2.16840.1.227830.3.579.2.40123-80-2147Juonrdw21723207 2.16840.1.525615.3.579.2.94557-71-9040Jbhegrv42293694 2.16840.1.771407.3.579.2.62202-51-0537Nssiimd14464347 2.16840.1.560568.3.579.2.34958-84-0055Vpliwtl88518389 2.16840.1.761911.3.579.2.56772-90-1449Uruwlkh83290911 2.16840.1.435266.3.579.2.64740-00-9434Qtquabz918578744 2.16840.1.833145.3.579.2.258539-72-1800Hjmboqt261615997 2.16840.1.043414.3.579.2.558180-41-8020Ucsnegf536312073 2.16840.1.454745.3.579.2.041154-91-5261Juhabjr297355215 2.16840.1.978114.3.579.2.376030-85-9496Rnfaglv430586090 2.16840.1.934873.3.579.2.237234-03-9784Usfclst425739920 2.16.840.1.392766.3.579.2.377361-29-8785Teigiih890814240 2.840.1.259066.3.579.2.737598-92-7823Lqrkwkw343705007 2.16840.1.521191.3.579.2.052555-85-8330Hzzoopk683971449 2.840.1.473704.3.579.2.515487-19-6697Hiikjpi24072209 2.0.1.645972.3.579.2.295760-14-4551Aeaibpq70310413 2.840.1.656959.3.579.2.304647-69-5954Npxwlzo82591995 2.840.1.158539.3.579.2.270960-97-1890Nodisow89326880 2.840.1.474828.3.579.2.235624-01-0823Drwgahr39860263 2.0.1.347921.3.579.2.990726-51-1596Tcbafze58832273 2.840.1.265938.3.579.2.454041-38-1294Jrgslhg79839097 2.840.1.052118.3.57[id number] 2.840.1.402442.3.579.2.14998-19-5483Cybsvdz66262813 2.840.1.158494.3.579.2.49410-58-4999Bfpebng41868092 2.840.1.714315.3.579.2.74679-29-0321Hlppknb42559991 2.16840.1.949578.3.579.2.10511-77-3748VvjxutrZVW474887442 3s74449s-52h6-73f1-3yh4-9836853589etJylhbxv13753919 v2u3l513-3rvp-2897-87n1-[id number] u3974xez-1r53-3810-m147-[id number] 7757953a-w33k-026t-2p19-[id number] 2.16.840.1.710233.3.579.2.476Fojzwvr82424735 2.16.840.1.558255.3.579.2.531 [id number] 2.16.840.1.4[id number] 2.16.840.1.9545[id number] 2.16.840.1.743914.3.579.2.531 Social History DateTypeDetailFacilityStart: 09-14-2021 End: 65-93-0421Wqfncws smoking status NHISNever smoked tobacco (finding) [facility]-1439[facility] statusNeTrumb[facility] Start: 05-30-2023 End: 91-66-1174Sft Assigned At [facility] [employer] Other Start: 04-05-2018 End: 63-08-1783Egnefwd use and exposureSmokeless tobacco non-userOhioHealth Van Wert Hospitaltart: 10-27-2020 End: 91-04-9110Fnvjwiv intakeCurrent drinker of alcohol (finding)[facility]: 90-29-1663Ofawyuh SDOH Alcohol CommentsociallyClevelcounts include 234 beds at the [facility] Start: 78-46-9441Tyu Assigned At BirthNot on fileOhioHealth Van Wert Hospitaltart: 02-06-2022 End: 41-59-6078Qdfqffco to SARS-CoV-2 (event)Not sureCleveland Clinic Union HospitalHistory of tobacco usePassive smokerOhioHealth Van Wert Hospitaltart: 09-05-2023 End: [id number] intakeNot AskedPAGE HOSPITAL Mobilygen [address] [address] [facility]ITALStart: 05-30-2023 End: [id number] of Social functionBON Mobilygen HEALTHHow often to you have a drink containing alcohol?Monthly or lessBON [facility]ENTERCommunity Cash HEALTHHow many standard drinks containing alcohol do you have on a typical day?1 or 2BON [facility] MedicalHow often do you have 6 or more drinks on 1 occasion?Less than monthlyBOSTON STATE HOSPITALCommunity Cash [address] [facility]ITALStart: 05-30-2023 End: 95-50-0542Esjnpot CommentsocialWellmont Health Systembacco smoking status NHISTobacco smoking consumption unknownMercy Health [facility] SystemStart: 10-75-9115Dvzgauw CommentmonthBlanchard Valley Health System [facility] SystemStart: 01-14-2015 End: 06-13-5972EntRwkkwe (finding)[facility] SystemStart: 06-27-2024 End: 39-73-5250Ftcetzyil beverage intakeEx-drinker (finding)[facility] Comment on above:DeniesTobacco smoking statusNo Smoking Status [facility] Goals DatePatient GoalDesired Activity/State Functional Status Tpbm[id number] StatusN/[facility]02-23-2025Functional StatusN/[facility]02-23-2025 Functional StatusN/[facility]02-20-2025Functional StatusN/A [facility]01-15-2025Functional StatusN/[facility]01-12-2025Functional StatusN/[facility] [id number] StatusN/[facility]04-18-2024Functional StatusN/[facility]04-15-2024Functional StatusN/[facility]02-18-2024Functional StatusN/[facility] [id number] StatusN/[facility]10-17-2023Functional statusPatient at [facility]Select [facility] [place] Work Phone: [phone]) [phone] StatusN/[facility] Mental Status JkydYwaqoxoorsPmmtfhQeinxprz06-27-0595Aiuebsesx functionCognitive Status Patient at [facility] [place] Work Phone: Clinical Notes 03-19-2019 to 04-09-2025 Note Date & [id number] NoteED Patient Education Note Gastroenterology Abdominal Pain, [...] these instructions at home: Medicines ??? Take nmrd-lvl-urtcjqs and prescription medicines only as told by [...] provider. Document Revised: 03/16/2023 Document Reviewed: 03/16/2023 OpenDNS Patient Education ? 2023 [employer] 01-15-2025 NoteED Patient Education Note Gastroenterology Abdominal Pain, [...] these instructions at home: Medicines ??? Take quvw-fdr-csvtyze and prescription medicines only as told by [...] provider. Document Revised: 03/16/2023 Document Reviewed: 03/16/2023 [employer] Patient Education ? 2023 [employer].[facility] 10-01-2024 Miscellaneous Notes* Telephone Encounter - Thalia Barnard - 10/01/2024 8:57 PM EDT Contract: 166 Dipak @[employer] called regarding right sided abdominal pain @[facility] * Telephone Encounter - Thalia Barnard - 10/01/2024 8:57 PM EDT OC166 I numerically paged the PRODUCT DEVELOPMENT CARPENTER ONC to [facility] * Telephone Encounter - Thalia Barnard - 10/01/2024 8:57 PM EDT OC166 PRODUCT DEVELOPMENT CARPENTER ONC called back & I transferred them to [employer] [facility]Gen[facility]04-[facility] Telephone encounter Note* Telephone Encounter - Thalia Christianalina - 10/01/2024 8:57 PM EDT Contract: 166 Dipak @[employer] called regarding right sided abdominal pain @[place] [facility]04-21-2025 Telephone encounter Note* Telephone Encounter - Thalia Christianalina - 10/01/2024 8:57 PM EDT OC166 I numerically paged the PRODUCT DEVELOPMENT CARPENTER ONC to [facility]04-21-2025 Telephone encounter Note* Telephone Encounter - Thalia Ginoalina - 10/01/2024 8:57 PM EDT OC166 PRODUCT DEVELOPMENT CARPENTER ONC called back & I transferred them to Dipak @[employer] [facility]04-02-2025 Miscellaneous Notes* Telephone Encounter - Shefali Rodriguez - 09/12/2024 11:18 AM EDT Job Trainer 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 Patient wanted to reschedule her appointment due to the weather ( Storms). documented in this encounterGenesis Hospital04-02-2025 Telephone encounter Note* Telephone Encounter - Shefali Rodriguez - 09/12/2024 11:18 AM EDT Job Trainer 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 Patient wanted to reschedule her appointment due to the weather ( Storms). [facility]03-25-2025 Miscellaneous Notes* Telephone Encounter - Latisha Venegas - 09/04/2024 6:17 PM EDT Contract: 166 re Abd Pain, Nausea Dr Aparicio * Telephone Encounter - Latishalatia Venegas - 09/04/2024 6:17 PM EDT Numeric page sent to PA to call ER documented in this encounterGenesis Hospital03-25-2025 Telephone encounter Note* Telephone Encounter - Latishalatia Venegas - 09/04/2024 6:17 PM EDT Contract: 166 re Abd Pain, Nausea Dr Aparicio [facility]03-25-2025 Telephone encounter Note* Telephone Encounter - Latishalatia Venegas - 09/04/2024 6:17 PM EDT Numeric page sent to PA to call ER [facility]03-01-2025 Hospital Discharge instructions Patient Education 08/10/2024 22:33:12 Chronic Pain, [...] your skin (aromatherapy). Other treatments may include: Jyog-zfh-ajxxwgl or prescription medicines. Color, light, or sound therapy. Local electrical stimulation. The electrical pulses help to relieve pain by temporarily stopping the nerve impulses that cause you to feel pain. Injections. These deliver numbing or pain-relieving medicines into the spine or the area of pain. Medicines Take cchi-yxg-jplbqzr and prescription medicines only as told by your health care provider. Ask your health care provider if the medicine prescribed to you: ?Requires you to avoid driving or using machinery. ?Can cause constipation. You may need to take these actions to prevent or treat constipation: ?Drink enough fluid to keep your urine pale yellow. ?Take mlvd-kzv-tofbuoe or prescription medicines. ?Eat foods that are [...] the National Suicide Prevention Lifeline at or 743. This is open 24 hours a day. Text the Crisis Text Line at 355690. This information is not intended to replace advice given to you by your health care provider. Make sure you discuss any questions you have with your health care provider. Document Revised: 01/19/2023 Document Reviewed: 12/22/2022 OpenDNS Patient Education 2023 [employer]. Follow Up Care 08/10/2024 19:36:46 With:Rose Royal Address: [address], [facility] [address] [place] [address]- [facility] (1) When:08/13/2024 With:XXXX NONE Address: [place] When:08/13/2024 Comments:Call to schedule a follow-up appointment with your surgeon for further management of care. Return to the ED with any new or worsening symptoms. [facility] [phone] NoteED Patient Education Note Mental and Behavioral [...] skin (aromatherapy). Other treatments may include: ??? Jnaa-rzn-vugbhly or prescription medicines. ??? Color, light, or sound therapy. ??? Local electrical stimulation. The electrical pulses help to relieve pain by temporarily stopping the nerve impulses that cause you to feel pain. ??? Injections. These deliver numbing or pain-relieving medicines into the spine or the area of pain. Medicines ??? Take qojw-gjs-gybbncb and prescription medicines only as told by your health care provider. ??? Ask your health care provider if the medicine prescribed to you: ? Requires you to avoid driving or using machinery. ? Can cause constipation. You may need to take these actions to prevent or treat constipation: ? Drink enough fluid to keep your urine pale yellow. ? Take dzxw-rfy-jxztipn or prescription medicines. ? Eat foods that [...] the National Suicide Prevention Lifeline at or 083. This is open 24 hours aday. ??? Text the Crisis Text Line at 534011. This information is not intended to replace advice given to you by your health care provider. Make sure you discuss any questions you have with your health care provider. Document Revised: 01/19/2023 Document Reviewed: 12/22/2022 [employer] Patient Education ? 2023 [employer] 08-10-2024 Evaluation + Plan noteExtracted from:Title:ED NoteAuthor:Lexy Campos PA-CDate:08/10/24 Chronic abdominal pain (R10. 9: Unspecified abdominal [...] Panel Lipase Level UA with Cult Rflx [facility] 02-23-2025 Hospital Discharge instructions Patient Education 08/05/2024 19:29:44 Abdominal Pain, Adult, Dixo-xk-Pryo Abdominal Pain, Adult Many things can cause belly (abdominal) pain. In most cases, belly pain is not a serious problem and can be watched and treated at home. But in some cases, it can be serious. Your doctor will try to find the cause of your belly pain. Follow these instructions at home: Medicines Take djij-vyh-usbebjj and prescription medicines only as told by [...] provider. Document Revised: 03/16/2023 Document Reviewed: 03/16/2023 OpenDNS Patient Education 2023 [employer]. Follow Up Care 08/05/2024 18:01:40 With:Pain Clinic: [facility] [phone] Address:Unknown When:08/08/2024 19:18:57 Comments:Call Dr for diagnosis based follow up With:Savannah Petersen Address: [address] [address]- Business (1) When:08/08/2024 19:18:52 Comments:Call Dr for diagnosis based follow up [facility] [phone] NoteED Patient Education Note Gastroenterology Abdominal Pain, Adult Many things can cause belly (abdominal) pain. In most cases, belly pain is not a serious problem and can be watched and treated at home. But in some cases, it can be serious. Your doctor will try to find the cause of your belly pain. Follow these instructions at home: Medicines ??? Take sllh-nzp-kijxnwc and prescription medicines only as told by [...] provider. Document Revised: 03/16/2023 Document Reviewed: 03/16/2023 OpenDNS Patient Education ? 2023 [employer].[facility] 08-05-2024 Hospital Discharge instructions Patient Education [...] your skin (aromatherapy). Other treatments may include: Exxz-rdh-ycpgkxc or prescription medicines. Color, light, or sound therapy. Local electrical stimulation. The electrical pulses help to relieve pain by temporarily stopping the nerve impulses that cause you to feel pain. Injections. These deliver numbing or pain-relieving medicines into the spine or the area of pain. Medicines Take lxqr-igs-yzlsefz and prescription medicines only as told by your health care provider. Ask your health care provider if the medicine prescribed to you: ?Requires you to avoid driving or using machinery. ?Can cause constipation. You may need to take these actions to prevent or treat constipation: ?Drink enough fluid to keep your urine pale yellow. ?Take acht-urs-njglhvd or prescription medicines. ?Eat foods that are [...] the National Suicide Prevention Lifeline at or 264. This is open 24 hours a day. Text the Crisis Text Line at 275334. This information is not intended to replace advice given to you by your health care provider. Make sure you discuss any questions you have with your health care provider. Document Revised: 01/19/2023 Document Reviewed: 12/22/2022 OpenDNS Patient Education 2023 [employer]. Follow Up Care 08/05/2024 11:07:17 With:XXXX NONE Address: [place] When:08/08/2024 11:25:55 Comments:Follow-up with your OBGYN surgeon [facility] 02-23-2025 NoteED Patient Education Note Mental [...] skin (aromatherapy). Other treatments may include: ??? Nqpp-cgo-kyhuqce or prescription medicines. ??? Color, light, or sound therapy. ??? Local electrical stimulation. The electrical pulses help to relieve pain by temporarily stopping the nerve impulses that cause you to feel pain. ??? Injections. These deliver numbing or pain-relieving medicines into the spine or the area of pain. Medicines ??? Take ugxr-jjz-mthwdot and prescription medicines only as told by your health care provider. ??? Ask your health care provider if the medicine prescribed to you: ? Requires you to avoid driving or using machinery. ? Can cause constipation. You may need to take these actions to prevent or treat constipation: ? Drink enough fluid to keep your urine pale yellow. ? Take hwzh-eye-aqnjtjb or prescription medicines. ? Eat foods that [...] the National Suicide Prevention Lifeline at or 994. This is open 24 hours aday. ??? Text the Crisis Text Line at 558543. This information is not intended to replace advice given to you by your health care provider. Make sure you discuss any questions you have with your health care provider. Document Revised: 01/19/2023 Document Reviewed: 12/22/2022 Elsevier Patient Education ? 2023 [employer] 08-02-2024 Hospital Discharge instructions Patient Education [...] provider gives to you. In general: Take ugnd-bod-melrkot and prescription medicines only as told by [...] provider. Document Revised: 10/08/2021 Document Reviewed: 10/08/2021 OpenDNS Patient Education 2023 [employer]. 08/02/2024 19:06:33 Abdominal Pain, Adult Abdominal Pain, [...] Follow these instructions at home: Medicines Take ciho-opg-hrfxdcu and prescription medicines only as told by [...] provider. Document Revised: 03/16/2023 Document Reviewed: 03/16/2023 OpenDNS Patient Education 2023 [employer]. Follow Up Care 08/02/2024 14:42:18 With:Make sure to follow-up with your PRODUCT DEVELOPMENT CARPENTER at [facility]. Return to the emergency room if your pain gets worse or any new symptoms. Address:Unknown When:08/05/2024 18:40:00 [facility] 02-20-2025 NoteED Patient Education Note Gastroenterology [...] these instructions at home: Medicines ??? Take jwux-wfe-ojrwtin and prescription medicines only as told by [...] provider. Document Revised: 03/16/2023 Document Reviewed: 03/16/2023 OpenDNS Patient Education ? 2023 [employer] Inc. Obstetrics and Gynecology Pelvic Mass, Female A [...] gives to you. In general: ??? Take jozz-qzw-cuxowbr and prescription medicines only as told by [...] tolerate prescribed medicines. (more content not included)... [facility]02-20-2025 Evaluation + Plan noteExtracted from: Title:ED NoteAuthor:Neha Hannah M.D. HDate:08/02/24 1. Abdominal pain (R10.9: Un specified abdominal [...] Panel Lipase Level UA with Cult Rflx [facility] [phone] Emergency department Note* Kandi Cruz RN - 08/01/2024 7:53 PM EST Pt in no distress at discharge. Discharge instructions given to and explained to pt. Pt verbalized understanding and denies needs and questions at this time. Pt ambulated with steady gait at discharge. [facility]02-19-20[facility] Emergency department Note* Kandi Cruz RN - [...] hospitals over the last 3 weeks. (- [facility], 2- [facility] [place] [facility], 2-8 [facility], 2- [place], - [facility], - [facility], - [facility], - [facility], - [facility]). She is currently on Hydrocodone and Toradol. Patient states she is only here for pain control. She states a relative drove her to ER but they are not in room. Patient states the only medications that work are Fentanyl and Dilaudid. She states she is allergic to Morphine. She is suppose to have another surgery with Plater Apprentice but is waiting for opening. She states she was referred to chronic pain management but they have not seen her yet. She states PRODUCT DEVELOPMENT CARPENTER tells her to go to ER whenever [...] by Nasal route once for 1 dose. [place] into the nose as directed. Call 911. [...] Insecurity: No Food Insecurity (07/27/2024) Received from [facility] [employer] Hunger Screening Within the past 12 months [...] file Social Connections: Unknown (03/22/2023) Received from [facility] Family and Community Support Help with Day-to-Day Activities: Not on file Lonely or Isolated: Not on file Personal Safety: Unknown (03/22/2023) Received from [facility] Abuse Screen Unsafe at Home or Work/School: Not on file Feels Threatened by Someone?: Not on file Does Anyone Keep You from Contacting Others or Doint Things Outside the Home?: Not on file Physical Sign of Abuse Present: Not on file Housing Stability: Unknown (03/22/2023) Received from [facility] Housing Stability Current Living Arrangements: Not on [...] YELLOW YELLOW Appearance, Urine CLEAR CLEAR Specific [place], Urine 1.010 1.010 - 1.025 PH URINE [...] medication unless I know 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 She just wanted to leave. I told her I can give her nonnarcotic medication and she refused. I encourage her to try to talk with PRODUCT DEVELOPMENT CARPENTER about a plan go forward to control [...] Konstantin Jain MD 08/01/241952 documented in this encounterUniversity [facility] Hospital Discharge instructions* Discharge Instructions* Konstantin Jain MD - 08/01/2024 7:43 PM EST Call your PRODUCT DEVELOPMENT CARPENTER and Chronic pain management tomorrow for follow up. * Attachments The following attachments cannot be sent through Care Everywhere. * Chronic Pain (Senegalese) documented in this encounterUniversity [facility]als [facility]02-[facility] Emergency department Note* Kandi Cruz RN - 08/01/2024 7:22 PM EST Pt sts her step son brought her to ER and did not drive herself [facility]02-19-2025 Physician Emergency department Note* Konstantin Jain MD - 08/01/2024 7:20 PM EST Emergency Department Report [facility] Service Date:.08/01/24 PCP: No primary [...] hospitals over the last 3 weeks. (2-26 [facility], 2-24 [facility] [place] [facility], 2-8 [facility], 2-1 [place], 1-31 [facility], 1- [facility], 1- [facility], 1-[address] [facility], 1- [facility]). She is currently on Hydrocodone and Toradol. Patient states she is only here for pain control. She states a relative drove her to ER but they are not in room. Patient states the only medications that work are Fentanyl and Dilaudid. She states she is allergic to Morphine. She is suppose to have another surgery with Plater Apprentice but is waiting for opening. She states she was referred to chronic pain management but they have not seen her yet. She states PRODUCT DEVELOPMENT CARPENTER tells her to go to ER whenever [...] by Nasal route once for 1 dose. [place] into the nose as directed. Call 911. [...] Insecurity: No Food Insecurity (07/27/2024) [facility] Hunger Screening Within the past 12 [...] file Social Connections: Unknown (03/22/2023) Received from [facility] Family and Community Support Help with Day-to-Day Activities: Not on file Lonely or Isolated: Not on file Personal Safety: Unknown (03/22/2023) Received from [facility] Abuse Screen Unsafe at Home or Work/School: Not on file Feels Threatened by Someone?: Not on file Does Anyone Keep You from Contacting Others or Doint Things Outside the Home?: Not on file Physical Sign of Abuse Present: Not on file Housing Stability: Unknown (03/22/2023) Received from [facility] Housing Stability Current Living Arrangements: Not on [...] YELLOW YELLOW Appearance, Urine CLEAR CLEAR Specific [place], Urine 1.010 1.010 - 1.025 PH URINE [...] medication unless I know 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 She just wanted to leave. I told her I can give her nonnarcotic medication and she refused. I encourage her to try to talk with PRODUCT DEVELOPMENT CARPENTER about a plan go forward to control [...] . Konstantin Jain MD 08/01/241952 [facility]02-01-2025 Emergency department Note* Yakelin Calvert RN - 07/14/2024 7:29 PM EST Dc paperwork given and explained. Voices understanding. Voices no further needs at this time. Pt ambulated to hospital exit without difficulty. Ride here and waiting in hospital waiting room. [facility]02-01-2025 Emergency department Note* Yakelin Calvert RN - 07/14/2024 7:29 PM EST Dc paperwork given and explained. Voices understanding. Voices no further needs at this time. Pt ambulated to hospital exit without difficulty. Ride here and waiting in hospital waiting room. * Donya Romano MD - 07/14/2024 6:25 PM EST Emergency Department Report [facility] Service Date:.07/14/24 PCP: No primary [...] by Nasal route once for 1 dose. [place] into the nose as directed. Call 911. [...] Insecurity: No Food Insecurity (07/13/2024) Received from [facility] Hunger Screening Within the past 12 [...] file Social Connections: Unknown (03/22/2023) Received from [facility] Family and Community Support Help with Day-to-Day Activities: Not on file Lonely or Isolated: Not on file Intimate Partner Violence: Unknown (03/22/2023) Received from [facility] Abuse Screen Unsafe at Home or Work/School: Not on file Feels Threatened by Someone?: Not on file Does Anyone Keep You from Contacting Others or Doint Things Outside the Home?: Not on file Physical Sign of Abuse Present: Not on file Housing Stability: Unknown (03/22/2023) Received from [facility] Housing Stability Current Living Arrangements: Not on [...] Romano MD 07/14/24 1839 documented in this encounterUniversity [facility]als [facility] Physician Emergency department Note* Donya Romano MD - 07/14/2024 6:25 PM EST Emergency Department Report [facility] Service Date:.07/14/24 PCP: No primary [...] by Nasal route once for 1 dose. [place] into the nose as directed. Call 911. [...] Insecurity: No Food Insecurity (07/13/2024) Received from [facility] Hunger Screening Within the past 12 [...] file Social Connections: Unknown (03/22/2023) Received from [facility] Family and Community Support Help with Day-to-Day Activities: Not on file Lonely or Isolated: Not on file Intimate Partner Violence: Unknown (03/22/2023) Received from [facility] Abuse Screen Unsafe at Home or Work/School: Not on file Feels Threatened by Someone?: Not on file Does Anyone Keep You from Contacting Others or Doint Things Outside the Home?: Not on file Physical Sign of Abuse Present: Not on file Housing Stability: Unknown (03/22/2023) Received from [facility] Housing Stability Current Living Arrangements: Not on [...] information. . Donya Romano MD 07/14/24 1839 [facility]01-30-2025 Hospital Discharge instructions* Discharge Instructions* Shalonda Bacon MD - 07/12/2024 1:41 AM EST Continue current medications as prescribed. Use Ursa in place of Tylenol for pain not controlled with Tylenol. Flexeril every 8 hours to see if this helps. Heat or ice for 5 to 10-minute intervals as desired for comfort. May use shmn-syu-dfibvlt product such as IcyHot Biofreeze or similar as needed and directed. Follow-up with your PRODUCT DEVELOPMENT CARPENTER provider soon as possible. Please return immediately for anyacute concerns * Attachments The following attachments cannot be sent through Care Everywhere. * Abdominal Pain (Senegalese) documented in this encounterBon [facility] NoteEducation Materials Mental and Behavioral Health [...] skin (aromatherapy). Other treatments may include: ? Hdub-gun-lvfxvkv or prescription medicines. ? Color, light, or sound therapy. ? Local electrical stimulation. The electrical pulses help to relieve pain by temporarily stopping the nerve impulses that cause you to feel pain. ? Injections. These deliver numbing or pain-relieving medicines into the spine or the area of pain. Medicines ? Take cyyf-jqi-lryxsjx and prescription medicines only as told by your health care provider. ? Ask your health care provider if the medicine prescribed to you: ? Requires you to avoid driving or using machinery. ? Can cause constipation. You may need to take these actions to prevent or treat constipation: ? Drink enough fluid to keep your urine pale yellow. ? Take rnya-pjb-onuvnnj or prescription medicines. ? Eat foods that [...] the National Suicide Prevention Lifeline at or 047. This is open 24 hours a day. ? Text the Crisis Text Line at 721320. This information is not intended to replace advice given to you by your health care provider. Make sure you discuss any questions you have with your health care provider. Document Revised: 01/19/2023 Document Reviewed: 12/22/2022 [employer]DNS Patient Education ? 2023 [employer].[facility] [id number] Note Education Materials Gastroenterology Abdominal Pain, Adult [...] these instructions at home: Medicines ? Take aetr-til-xjnfclu and prescription medicines only as told by [...] provider. Document Revised: 03/16/2023 Document Reviewed: 03/16/2023 [employer] Patient Education ? 2023 [employer] Inc. Mental and Behavioral Health Chronic Pain, Adult [...] skin (aromatherapy). Other treatments may include: ? Qsck-zsw-gahwjvt or prescription medicines. ? Color, light, or sound therapy. ? Local electrical stimulation. The electrical pulses help to relieve pain by temporarily stopping the nerve impulses that cause you to feel pain. ? Injections. These deliver numbing or pain-relieving medicines into the spine or the area of pain. Medicines ? Take guah-odj-kamgmgs and prescription medicines only as told by your health care provider. ? Ask your health care provider if the medicine prescribed to you: ? Requires you to avoid driving or using machinery. ? Can cause constipation. You may need to take these actions to prevent or treat constipation: ? Drink enough fluid to keep your urine pale yellow. ? Take nugz-tpj-wluaszq or prescription medicines. ? Eat foods that [...] to help manage chron (more content not included)...[facility] [id number] Evaluation + Plan noteExtracted from:Title:ED NoteAuthor:Jordyn Willett DO ADate:06/28/24 Abdominal pain (R10.9: Unspe cified abdominal pain) [...] Stop date 06/28/24 0:24:00 EST, STAT, Start date06/28/24 0:24:00 EST, 06/28/24 0:24:00 EST ondansetron, 4 mg = 2 mL, Injection, IV Push, Once, Stop date 06/28/24 0:24:00 EST, STAT, Start date 06/28/24 0:24:00 EST, 06/28/24 0:24:00 EST Basic Metabolic Panel CBC w/ Auto Diff eGFR Extra Blue Tube Extra SST Tube Hepatic Function Panel Lipase Level UA with Cult Rflx [facility] 01-16-2025 Hospital Discharge instructions Patient Education 06/28/2024 01:38:52 Abdominal Pain, Adult, Rcyp-rx-Dogn Abdominal Pain, Adult Many things can cause belly (abdominal) pain. In most cases, belly pain is not a serious problem and can be watched and treated at home. But in some cases, it can be serious. Your doctor will try to find the cause of your belly pain. Follow these instructions at home: Medicines Take eyny-obj-zlkwhfb and prescription medicines only as told by [...] provider. Document Revised: 03/16/2023 Document Reviewed: 03/16/2023 OpenDNS Patient Education 2023 [employer]. Follow Up Care 06/27/2024 21:47:06 With:Socialtext Address: [address] [place] [address] [place] [address] [facility] (1) When:07/01/2024 Comments:Please follow-up with your primary care doctor and VIDEO SYSTEM REPAIRER for further evaluation and management. Return to the ED for any new or worsening symptoms. With:XXXX NONE Address: [place] When:Within 3 Day(s) [facility] 01-16-2025 NoteED Patient Education Note Gastroenterology Abdominal Pain, Adult Many things can cause belly (abdominal) pain. In most cases, belly pain is not a serious problem and can be watched and treated at home. But in some cases, it can be serious. Your doctor will try to find the cause of your belly pain. Follow these instructions at home: Medicines ??? Take dwij-jtb-fyenefu and prescription medicines only as told by [...] provider. Document Revised: 03/16/2023 Document Reviewed: 03/16/2023 [employer] Patient Education ? 2023 [employer] Inc.[facility] 06-27-2024 Hospital Discharge instructions* Discharge Instructions* Randee Richardson MD - 06/27/2024 3:16 PM EST Please call your VIDEO SYSTEM REPAIRER and schedule follow-up visit. Continue taking your pain medications as prescribed. Return to the ER for any worsening symptoms or concerns * Attachments The following attachments cannot be sent through Care Everywhere. * Abdominal Pain (Senegalese) [facility] Discharge instructions Patient Education 06/25/2024 [...] Follow these instructions at home: Medicines Take fhky-lpe-wfnscxc and prescription medicines only as told by [...] provider. Document Revised: 03/16/2023 Document Reviewed: 03/16/2023 [employer] Patient Education 2023 [employer]. Follow Up Care 06/24/2024 19:25:17 With:Ernie CHIRINOS Address: [address] [place], [place] [id number]- Business (1) When:06/28/2024 [facility] 01-13-2025 NoteED Patient Education Note Gastroenterology [...] these instructions at home: Medicines ??? Take snag-nau-kjmemqp and prescription medicines only as told by [...] provider. Document Revised: 03/16/2023 Document Reviewed: 03/16/2023 [employer] Patient Education ? 2023 [employer].[facility] 06-24-2024 Evaluation + Plan noteExtracted from:Title:ED NoteAuthor:Ritesh Heath DODate:06/24/24 Abdominal pain, acute (R10.9 : Unspecified abdominal [...] Beta Hcg Qual UA with Cult Rflx [facility] 12-30-2024 NoteEducation Materials Obstetrics and Gynecology [...] Follow these instructions at home: ? Take vvtp-zpi-oijetha and prescription medicines only as told by [...] provider. Document Revised: 10/31/2020 Document Reviewed: 11/06/2020 OpenDNS Patient Education ? 2023 P[employer]cut.[facility] [id number] Miscellaneous Notes* Telephone Encounter - Shefali Rodriguez - 06/11/2024 8:57 AM EST Job Trainer left voicemail to schedule a H/F with Kendra in [place]. [facility]* Telephone Encounter - Shefali Rodriguez - 06/11/2024 8:57 AM EST Job Trainer left voicemail to schedule a H/F with Kendra in [place]. [facility]12-28-20[facility] Miscellaneous Notes* Telephone Encounter - Isabell Lentz - 06/09/2024 8:05 PM EST Contract: [address] [place] re abnormal CT, post-op Relayed info to Dr Woo on cell and transferred documented in this encounterGrand Lake Joint [facility] HospitalAyalogic [facility] [id number] Telephone encounter Note* Telephone Encounter - Isabell Lentz - 06/09/2024 8:05 PM EST Contract: [address] [place] re abnormal CT, post-op Relayed info to Dr Woo on cell and transferred [facility] [id number] NoteEducation Materials Obstetrics and Gynecology Endometriosis Follow-up with your VIDEO SYSTEM REPAIRER to review this emergency department visit and [...] these instructions at home: Medicines ? Take xwez-rjd-pdjwqiy and prescription medicines only as told by your health care provider. ? Ask your health care provider if the medicine prescribed to you: ? Requires you to avoid driving or using machinery. ? Can cause constipation. You may need to take these actions to prevent or treat constipation: ? Drink enough fluid to keep your urine pale yellow. ? Take eebn-qft-cqeieol or prescription medicines. ? Eat foods that [...] important. Where to find more information ? [employer]: www.acog.org ? [...] vomiting, or you (more content not included)... [facility] [id number] Emergency department Note* Davi Rivas, DO - 03/03/2024 4:47 PM EDT Emergency Department Report [facility] Service Date:.03/03/24 PCP: No primary [...] for months. Patient states she has seen VIDEO SYSTEM REPAIRER specialist in [place], Dr. Mendoza, to have her uterus/hysterectomy secondary to endometriosis. Patient says that she then b etween PCPs at this point. Patient does have a OBGYN in [facility], Dr. Berrios. Patient states she is [...] by Nasal route once for 1 dose. [place] into the nose as directed. Call 911. [...] Insecurity: No Food Insecurity (01/27/2024) [facility] Hun[facility]ening Within the past 12 [...] file Social Connections: Unknown (03/22/2023) Received from [facility] Family and Community Support Help with Day-to-Day Activities: Not on file Lonely or Isolated: Not on file Intimate Partner Violence: Unknown (03/22/2023) Received from [facility] Abuse Screen Unsafe at Home or Work/School: Not on file Feels Threatened by Someone?: Not on file Does Anyone Keep You from Contacting Others or Doint Things Outside the Home?: Not on file Physical Sign of Abuse Present: Not on file Housing Stability: Unknown (03/22/2023) Received from [facility] Housing Stability Current Living Arrangements: Not on [...] to palpation. GI: Soft, patient does have bsao-rh-fexeapox tenderness to palpation over lower quadrant, no [...] Orders Placed This Encounter AMB REFERRAL TO OB-PRODUCT [facility]ELOPMENT [facility] AMB REFERRAL TO CHRONIC PAIN CLINIC hydroCODone-acetaminophen [...] YELLOW YELLOW APPEARANCE, URINE CLEAR CLEAR Specific [place], Urine 1.010 1.010 - 1.025 PH URINE [...] have definitive treatment from Dr. Aparicio's in [place] for her endometriosis and hysterectomy which patient [...] ED w/ steady gait documented in this [facility]09-21-2024 Physician Emergency department Note* Davi Rivas DO - 03/03/2024 4:47 PM EDT Emergency Department Report [facility] Service Date:.03/03/24 PCP: No primary [...] for months. Patient states she has seen VIDEO SYSTEM REPAIRER specialist in [place], Dr. Herrs, to have her uterus/hysterectomy secondary to endometriosis. Patient says that she then b etween PCPs at this point. Patient does have a OBGYN in [facility], Dr. Berrios. Patient states she is [...] by Nasal route once for 1 dose. [place] into the nose as directed. Call 911. [...] Insecurity: No Food Insecurity (01/27/2024) Received from [facility] Hunger Screening Within the past [...] file Social Connections: Unknown (03/22/2023) Received from [facility] Family and Community Support Help with Day-to-Day Activities: Not on file Lonely or Isolated: Not on file Intimate Partner Violence: Unknown (03/22/2023) Received from [facility] Abuse Screen Unsafe at Home or Work/School: Not on file Feels Threatened by Someone?: Not on file Does Anyone Keep You from Contacting Others or Doint Things Outside the Home?: Not on file Physical Sign of Abuse Present: Not on file Housing Stability: Unknown (03/22/2023) Received from [facility] Housing Stability Current Living Arrangements: Not on [...] to palpation. GI: Soft, patient does have azmo-zl-dctrgqsz tenderness to palpation over lower quadrant, no [...] Orders Placed This Encounter AMB REFERRAL TO OB-PRODUCT DEVELOPMENT CARPENTER AMB REFERRAL TO CHRONIC PAIN CLINIC hydroCODone-acetaminophen [...] YELLOW YELLOW APPEARANCE, URINE CLEAR CLEAR Specific [place], Urine 1.010 1.010 - 1.025 PH URINE [...] have definitive treatment from Dr. Aparicio's in [place] for her endometriosis and hysterectomy which patient [...] . . Davi Rivas DO 03/03/24 1706 [facility]09-21-2024 Emergency department Note* Geri Burciaga RN - [...] ambulatory out of ED w/ steady gait [facility]09-21-2024 Hospital Discharge instructions* Discharge Instructions* Davi Rivas DO - 03/03/2024 4:[address] Wilson, your OBGYN in [place] to see if your appointment may be moved up. Call Dr. Braden in [place] on Tuesday to see if they will [...] to you as well. documented in this encounterUniversity [facility] Emergency department Note* Ashley Delcid MD - 02/24/2024 11:24 PM EDT Emergency Department Report [facility] Service Date:.02/25/24 PCP: No primary [...] has a history of endometriosis. Follows with corporation secretary in [place]. States she is waitingto be scheduled for a total hysterectomy. Last saw them in November as per records. She explains they just have not scheduled it yet but she is in constant pain. Review of records shows similar presentation at outlying facilities. Is here in [place] helping grandmother pack up to move to [place] with the rest of the family Review [...] by Nasal route once for 1 dose. [place] into the nose as directed. Call 911. [...] Insecurity: No Food Insecurity (01/27/2024) [facility] Hunger Screening Within the past 12 [...] file Social Connections: Unknown (03/22/2023) Received from [facility] Family and Community Support Help with Day-to-Day Activities: Not on file Lonely or Isolated: Not on file Intimate Partner Violence: Unknown (03/22/2023) Received from [facility] Abuse Screen Unsafe at Home or Work/School: Not on file Feels Threatened by Someone?: Not on file Does Anyone Keep You from Contacting Others or Doint Things Outside the Home?: Not on file Physical Sign of Abuse Present: Not on file Housing Stability: Unknown (03/22/2023) Received from [facility] Housing Stability Current Living Arrangements: Not on [...] YELLOW YELLOW APPEARANCE, URINE CLEAR CLEAR Specific [place], Urine 1.010 1.010 - 1.025 PH URINE [...] I offered to contact her physician in [place] and see if I could transfer her [...] like her to call her Doctor in [place] for possible transfer. Pt refuses. Pt states [...] her home if discharged documented in this [facility]09-13-2024 Physician Emergency department Note* Ashley Delcid MD - 02/24/2024 11:24 PM EDT Emergency Department Report [facility] Service Date:.02/25/24 PCP: No primary [...] has a history of endometriosis. Follows with corporation secretary in [place]. States she is waitingto be scheduled for a total hysterectomy. Last saw them in November as per records. She explains they just have not scheduled it yet but she is in constant pain. Review of records shows similar presentation at outlying facilities. Is here in [place] helping grandmother pack up to move to [place] with the rest of the family Review [...] by Nasal route once for 1 dose. [place] into the nose as directed. Call 911. [...] Insecurity: No Food Insecurity (01/27/2024) [facility] Hunger Screening Within the past 12 [...] file Social Connections: Unknown (03/22/2023) Received from [facility] Family and Community Support Help with Day-to-Day Activities: Not on file Lonely or Isolated: Not on file Intimate Partner Violence: Unknown (03/22/2023) Received from [facility] Abuse Screen Unsafe at Home or Work/School: Not on file Feels Threatened by Someone?: Not on file Does Anyone Keep You from Contacting Others or Doint Things Outside the Home?: Not on file Physical Sign of Abuse Present: Not on file Housing Stability: Unknown (03/22/2023) Received from [facility] Housing Stability Current Living Arrangements: Not on [...] YELLOW YELLOW APPEARANCE, URINE CLEAR CLEAR Specific [place], Urine 1.010 1.010 - 1.025 PH URINE [...] I offered to contact her physician in [place] and see if I could transfer her [...] information. . Ashley Delcid MD 02/25/24 0355 [facility]09-13-2024 Emergency department Note* Geri Burciaga RN - 02/24/2024 11:21 PM EDT AMA form signed. Pt aware of risks and refuses hospital admission. Pt states grandmother is at facility to transport her home. Denies further needs at this time. Pt is a&o respirations are even and unlabored. Pt ambulatory out of ED w/ steady gait [facility]09-13-2024 Emergency department Note* Geri Burciaag RN - 02/24/2024 10:52 PM EDT This [...] like her to call her Doctor in [place] for possible transfer. Pt refuses. Pt states she does not want to be admitted anywhere and states will sign AMA form and call her pcp in the morning. [facility]09-13-2024 Emergency department Note* Geri Burciaga RN - 02/24/2024 9:46 PM EDT Pt states pain has not improved after dilaudid administration. Dr. Delcid made aware [facility]09-13-2024 Emergency department Note* Geri Burciaga RN - 02/24/2024 9:20 PM EDT Pt states her grandmother will transport her home if discharged [facility]09-05-2024 Emergency department Note* Una Levy RN - 02/16/2024 5:12 PM EDT Discharge instructions provided. Patient verbalized understanding. Denies any questions or concernsprior to discharge. Ambulatory out of ED with Rx X2. [facility]09-05-2024 Emergency department Note* Una Levy [...] 02/16/2024 1:48 PM EDT Emergency Department Report [facility] Service Date:.02/16/24 PCP: No primary [...] by Nasal route once for 1 dose. [place] into the nose as directed. Call 911. [...] Insecurity: No Food Insecurity (01/27/2024) [facility] Hunger Screening Within the past 12 [...] file Social Connections: Unknown (03/22/2023) Received from [facility] Family and Community Support Help with Day-to-Day Activities: Not on file Lonely or Isolated: Not on file Intimate Partner Violence: Unknown (03/22/2023) Received from [facility] Abuse Screen Unsafe at Home or Work/School: Not on file Feels Threatened by Someone?: Not on file Does Anyone Keep You from Contacting Others or Doint Things Outside the Home?: Not on file Physical Sign of Abuse Present: Not on file Housing Stability: Unknown (03/22/2023) Received from [facility] Housing Stability Current Living Arrangements: Not on file Potentially Unsafe Housing Conditions: Not on file Physical Exam: Physical Exam CONST: -Well-developed well-nourished ; -In no acute distress. -Vitals reviewed. EYES: -EOM intact, KOLBY: -Sclera normal and conjunctiva: clear bilaterally. ENT: - Normal pharynx pink and moist. NECK: -Supple (ibtz-pd-aewcf). CARD: -Rate and rhythm: Regular -Murmurs: No [...] by Nasal route once for 1 dose. [place] into the nose as directed. Call 911. [...] information. . . Jennifer Moore MD 02/16/24 [id number] documented in this [facility]09-05-2024 Hospital Discharge instructions* Discharge Instructions* Jennifer Moore MD - 02/16/2024 4:52 PM EDT Tylenol for moderate pain. Full liquid diet for 2 days. * Attachments The following attachments cannot be sent through Care Everywhere. * Abdominal Pain (Senegalese) documented in this [facility]09-05-2024 Emergency department Note* Una Levy RN - 02/16/2024 3:40 PM EDT Patient states that pain is getting worse again. Dr Moore notified. No new orders received at this time. States he is waiting for CT results. Patient updated on plan. [facility]09-05-2024 Emergency department Note* Tangela Guajardo RN - 02/16/2024 3:10 PM EDT Pt taken to CT scan [facility]09-05-2024 Physician Emergency department Note* Jennifer Moore MD - 02/16/2024 1:48 PM EDT Emergency Department Report [facility] Service Date:.02/16/24 PCP: No primary [...] by Nasal route once for 1 dose. [place] into the nose as directed. Call 911. [...] Insecurity: No Food Insecurity (01/27/2024) Received from [facility] Hunger Screening Within the past 12 [...] file Social Connections: Unknown (03/22/2023) Received from [facility] Family and Community Support Help with Day-to-Day Activities: Not on file Lonely or Isolated: Not on file Intimate Partner Violence: Unknown (03/22/2023) Received from [facility] Abuse Screen Unsafe at Home or Work/School: Not on file Feels Threatened by Someone?: Not on file Does Anyone Keep You from Contacting Others or Doint Things Outside the Home?: Not on file Physical Sign of Abuse Present: Not on file Housing Stability: Unknown (03/22/2023) Received from [facility] Housing Stability Current Living Arrangements: Not on file Potentially Unsafe Housing Conditions: Not on file Physical Exam: Physical Exam CONST: -Well-developed well-nourished ; -In no acute distress. -Vitals reviewed. EYES: -EOM intact, KOLBY: -Sclera normal and conjunctiva: clear bilaterally. ENT: - Normal pharynx pink and moist. NECK: -Supple (bkpl-fg-hdszl). CARD: -Rate and rhythm: Regular -Murmurs: No [...] by Nasal route once for 1 dose. [place] into the nose as directed. Call 911. [...] information. . . Jennifer Moore MD 02/16/241654 [facility]09-02-2024 Evaluation + Plan noteExtracted from:Title:ED Note Author:Ritesh Heath DODate:02/13/24 Pain, dental (K08.89: Other specified disorders of [...] EDT, STAT, Start date 02/13/24 0:43:00 EDT [facility] 09-02-2024 Hospital Discharge instructions Patient Education [...] or after getting dental care. Medicines Take kgxt-zri-kpigrtg and prescription medicines only as told by [...] pain may be mild or severe. Take dnbi-jyh-fasoqqx and prescription medicines only as told by [...] Document Reviewed: 03/04/2021 Elsevier Patient Education 2023 [employer]. Follow Up Care 02/13/2024 00:22:40 With:Dental: [facility] [phone] Address:Unknown When:02/16/2024 With:Dental: [facility] [phone] Address:Unknown When:02/16/2024 With:Dental: [facility] [phone] Address:Unknown When:02/16/2024 [facility] 09-02-2024 NoteED Patient Education Note Dentistry [...] after getting dental care. Medicines ? Take drhh-ykf-kitsnev and prescription medicines only as told by [...] may be mild or severe. ? Take ucqs-uim-wrwamdd and prescription medicines only as told by [...] provider. Document Revised: 03/04/2021 Document Reviewed: 03/04/2021 [employer] Patient Education ? 2023 [employer].[facility] 01-22-2024 Hospital Discharge instructions* Discharge Instructions* [...] through Care Everywhere. * Ovarian Cyst: Functional (Senegalese) [facility]* Author Jennifer Duran [facility] 2023 11:44amThe above note written by ___Polly Collado____ acting as human recorder, note dictated by Dr. Mcfadden .I performed the above HPI, ROS, and Examination. I formulated and dictated the treatment plan and was present for entire encounter. Jennifer Duran D.O. [facility] Work Phone: [phone]) 480-290005-28-2024 Hospital Discharge instructions* Discharge Instructions* Eren Camejo DO - 11/08/2023 12:01 PM EDT Use clindamycin as prescribed. Continue the pain medicine that you have at home as needed for pain.Follow-up with dentist as scheduled * Attachments The following attachments cannot be sent through Care Everywhere. * Tooth and Gum Pain (Senegalese) [facility] Evaluation note* Author Jennifer Duran [facility] 2023 3:45pmThe above note written by ___Polly Collado____ acting as human recorder, note dictated by Dr. Mcfadden .I performed the above HPI, ROS, and Examination. I formulated and dictated the treatment plan and was present for entire encounter. Jennifer Duran D.O. [facility] [facility] [place] Work Phone: 1(622) 763-848704-19-2024 Evaluation + Plan noteExtracted from:Title: ED NoteAuthor:Ritesh Heath DO.Date:09/30/23 AP (abdominal pain) (R10.9: Unspecified abdominal pain) [...] mL, Soln-IV, IV, Once, Stop date 09/29/23 23:50:00EDT, STAT, Start date 09/29/23 23:50:00 EDT, Infuse over 61, minute(s) Basic Metabolic Panel CBC w/ Auto Diff eGFR Hepatic Function Panel Lipase Level Saline Lock Insert U Beta Hcg Qual UA with Cult Rflx Urinary Catheter Insertion Urine Culture US Doppler Abd/Pelvis Complete US Doppler Abd/Pelvis Complete US Pelvis Non-OB Complete US Transvaginal Non-OB Diagnostic Tests Pending * Urine Culture 09/30/23 [facility]04-19-2024 Hospital Discharge instructions Patient Education 09/30/2023 [...] (oophorectomy). Follow these instructions at home: Take ysnk-jdo-ybfpyxv and prescription medicines only as told by [...] provider. Document Revised: 11/06/2020 Document Reviewed: 11/06/2020 [employer] Patient Education 2022 [employer]cut. Follow Up Care 09/29/2023 23:40:10 With:Rose Royal Address: [address] [place] [address]- Business (1) When:10/03/2023 [facility]04-15-2024 Hospital Discharge instructions Follow Up Care 09/26/2023 13:55:08 With:[facility] Address: [address] [place] [address]- Business (1) When:09/29/2023 17:49:12 With:Tarun BRADEN Address: [address] [place] [address]- Business (1) When:09/29/2023 17:49:03 With:XXXX NONE Address: [place] When:Within 3 Day(s) [facility]04-15-2024 Evaluation + Plan noteExtracted from: Title:ED NoteAuthor:Fredrick GRULLON Student, Reny LEEate:09/26/23 Abdominal pain (R10.9: Unspe cified abdominal pain) [...] US Pelvis Non-OB Complete US Transvaginal Non-OB [facility]02-18-2024 Hospital Discharge instructions Patient Education 07/31/2023 [...] Follow these instructions at home: Medicines Take plul-pmy-wefmlrv and prescription medicines only as told by [...] Watch your condition for any changes. Take whwq-mrx-aiesftj and prescription medicines only as told by [...] provider. Document Revised: 07/18/2020 Document Reviewed: 10/08/2019 [employer]DNS Patient Education 2022 Priccut. Follow Up Care 07/31/2023 15:34:13 With:Follow-up with your VIDEO SYSTEM REPAIRER at [facility] Address:Unknown When:08/03/2023 17:52:19 Comments:Call the [...] weakness, or any new or worsening symptoms. [facility]02-15-2024 Evaluation note* Author Jennifer Duran [facility] HospitalAuthoredFebruary 2023 1:18pmThe above note written by ___Polly Collado____ acting as human recorder, note dictated by Dr. Mcfadden .I performed the above HPI, ROS, and Examination. I formulated and dictated the treatment plan and was present for entire encounter. Jennifer Duran D.O. [facility] Work Phone: [phone]) 512-377402-06-2024 Evaluation note* Encounter Date Diagnosis Assessment Notes Treatment Notes Treatment Clinical Notes Jul, Anxiety (ICD-10 - F41.9) [facility] 02-06-2024 Evaluation note* Encounter Date Diagnosis [...] current substance abuse treatments are being prescribed. Jul,Other12:54 PM - 1:00 PMShe had to reschedule an appointment with her specialist through the [facility] and is scheduled at the end of this month (July) and is hoping to have a total hysterectomy. [facility] Other 12-26-2023 Evaluation note* Encounter Date Diagnosis Assessment Notes Treatment Notes Treatment Clinical Notes May, Cough (ICD-10 - R05.9) [facility] Other 12-04-2023 Evaluation note* Encounter Date Diagnosis Assessment Notes Treatment Notes Treatment Clinical Notes May, Anxiety (ICD-10 - F41.9) [facility] Other 11-12-2023 Hospital Discharge instructions Patient Education [...] Follow these instructions at home: Medicines Take ucbz-mng-ocsssaz and prescription medicines only as told by [...] Watch your condition for any changes. Take fyma-klb-nlfhunn and prescription medicines only as told by [...] provider. Document Revised: 07/18/2020 Document Reviewed: 10/08/2019 OpenDNS Patient Education 2022 Priccut. Follow Up Care 04/24/2023 13:13:55 With:YOUR OBGYN at [facility] Address:Unknown When:04/27/2023 15:50:22 Comments:Seek immediate medical [...] develop any new or worsening symptoms. 3. [facility]11-12-2023 Evaluation + Plan noteExtracted from: Title:ED NoteAuthor:Jignesh Dumont DODate:04/24/23 Abdominal pain, acute, left lower quadrant (R10.32: [...] mL, Soln-IV, IV, Once, Stop date 04/24/23 13:57:00EST, STAT, Start date 04/24/23 13:57:00 EST, Infuse over 61, minute(s) Automated Diff Basic Metabolic Panel Beta hCG Qual CBC w/ Auto Diff CT Abdomen/Pelvis w/ Contrast ED Cardiac Monitoring eGFR Extra Blue Tube Saline Lock Insert UA With Cult Reflex [facility]11-06-2023 Evaluation note* Encounter Date Diagnosis Assessment Notes Treatment Notes Treatment Clinical Notes Apr, Cough (ICD-10 - R05.9) She did request a refill on the cough syrup. She is reminded not to take the Xanax within 12 hours of taking the cough syrup. Do not drive after taking or operate heavy machinery. Side effects/risks/benefits of medication were reviewed. Apr,cute sinusitis (ICD-10 - J01.90)She voices that within the first five days of symptoms she tested twice for COVID-19 and both testswere negative. I did recommend that she test herself for COVID-19 again to be sure this is not COVID-19. If this is negative then she is to fill the Augmentin prescription I will send in for her. Stop Doxycyline. Apr,nxiety (ICD-10 - F41.9)She does not need the Xanax at this time. She will call when she runs low on the medication. Do nottake any Xanax within 12 hours of taking [...] current substance abuse treatments are being prescribed. Apr,OtherPiloe has an appointment with her specialist at the [facility] in June (2023) which was the soonest they could get her in. She is hoping that they will at least remove the ovary but she is willing to have a total hysterectomy if they will do it.1:13 PM - 1:20 PM [facility] Other 10-20-2023 Evaluation note* Encounter Date Diagnosis Assessment Notes Treatment Notes Treatment Clinical Notes Mar, Anxiety (ICD-10 - F41.9) [facility] Other 10-17-2023 Progress note Author Christi Aquino [facility] March 29, 2023 4:11pmNote Date/TimeOctober 2022 11:35am[place] [address] Progress Note Signed with Addenda Patient: Antonia Noyola MR#: [id number] : 1985 Acct:[id number] Age/Sex: 38 / F Adm Date: 3 Loc: Room: [address] [place] [address] Type: ADM IN Attending Dr: Christi Aquino MD Copies to: ~ ADDENDUM1 Upon re-evaluation in the afternoon, patient feels better and would like to go home. Prescribed pain medications as needed as directed. Advised to continue to follow up with [facility] staff auto brake technician. 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 Discussed withpatient and her mother at bedside. All questions answered. She is in agreement and comfortable withdischarge plan with these prescriptions. Addendum Documented By: [...] She is requiring multiple IV pain medications. Stillwith abdominal pain mostly left sided. auto brake technician eval requested for further evaluation. 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 Afebrile here, no leukocytosis or obvious evidence of infectious process. Placed on Pain meds regimen IV and PO. Ongoing monitoringfor now. Documented By: Christi Aquino MD 03/29/23 11 32 Signed By: <Electronically signed by Christi Aquino MD> 03/29/23 8960 [facility] [place] Work Phone: [phone] 274-691810-17-2023 History and physical note Author Megan Muniz [facility] March 29, 2023 7:29amNote Date/TimeOct2022 7:29am[place] [address] Hospitalist H&P Signed Patient: Antonia Noyola MR#: [id number] : 1985 Acct:[id number] Age/Sex: 38 / F Adm Date: 3 Loc: Room: [address] [place] [address] Type: ADM IN Attending Dr: Christi Aquino MD Copies to: Jennifer Duran,MD Megan Ricardo MD~ HPI DATE OF EXAMINATION: 03/29/23 CHIEF COMPLAINT: Abdominal pain HISTORY OF PRESENT ILLNESS: 38 years old female who has a history of endometriosis, status post ablation x2,left ovarian cyst complicated with rupture requiring multiple interventions in the past presented with left-sided lowerabdominal pain. 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 Patient [...] findings. The patient case was discussed with VIDEO SYSTEM REPAIRER, who was not convinced that left ovarian cyst causing the pain. Patient still complained of severe intractable pain and required multiple IV medications. 10 systems are reviewed and are negative apart as mentioned in H&P General -patient is awake alert oriented ?3, she does appear to be in distress due to pain, holdingher lower abdomen HEENT -normal oropharyngeal mucosa without any ulcers or exudates Cardiovascular -S1 plus S2, with regular rate but tachycardia Pulmonary -clear to auscultation bilaterally Gastrointestinal -abdomen is soft, nondistended, but significantly tender in theleft lower abdomen,there was no rigidity, no groin tenderness noted, bowel sounds noted Genitourinary -deferred Musculoskeletal -no significant joint swelling Neurological -no focal Skin -no significant ulcers, no rash noted Extremities - no edema in bilateral lower extremities noted Psychiatry -in distress due to pain Laboratory work up, imaging studies reviewed Previous records in the computer system reviewed [facility] Medical History Anemia Endometriosis Surgical History History [...] % (Auto) 42.8 % (.) 03/29/23 01:40 [place] % (Auto) 7.3 % (.) 03/29/23 01:40 Eos % (Auto) 1.8 % (.) 03/29/23 01:40 Baso % (Auto) 1.3 % (.) 03/29/23 01:40 Nucleat RBC Rel Count 0.1 /100 WBC (0-0.5) 03/29/23 01:40 Neut # (Auto) 3.5 x10E3/uL (1.8-7.7) 03/29/23 01:40 Lymph # (Auto) 3.2 x10E3/uL (1.00-4.8) 03/29/23 01:40 [place] # (Auto) 0.6 x10E3/uL (0.0-0.8) 03/29/23 01:40 [...] pH 7.5 (5.0-9.0) 03/29/23 02:53 Ur Specific [place] 1.003 (1.001-1.030) 03/29/23 02:53 Urine Protein Negative [...] of endometriosis - previously had multiple intervention dueto cyst and endometriosis For now continue pain management, patient is afebrile, without leukocytosis, however she does have tachycardia We will consult VIDEO SYSTEM REPAIRER Check lactic acid 2. Microcytic iron deficiency anemia, previously she did have ruptured hemorrhagic cyst with bleeding Recheck H&H 3. DVT prophylaxis SCDs IP vs OBS Justification Based on differential dx, clinical care plan, and risk of adverse events, if untreated, in my clinical judgement this patient requires an acute care setting as: INPATIENT because of an expectation ofan over 2 midnight stay. Estimated length of stay (# of days): 3 Documented By: Megan Muniz MD 03/29/23721 Signed By: <Electronically signed by Megan Muniz MD> 03/29/237[address] [facility] Work Phone: 1(423) 426-497908-02-2023 Evaluation note* Encounter Date Diagnosis Assessment Notes [...] current substance abuse treatments are being prescribed. Jan,reater trochanteric bursitis of right hip (ICD-10 - M70.61)She voices that her right hip has been bothering her, but now she cannot even lay on that side whenshe sleeps. I suspect she has bursitis which can become inflamed and cause pain. I did advise her that an injection can be given in the bursa sac to provide her with relief. She would need to see an industrial specialist for this. She is agreeable to a referral. Jan,Tachycardia (ICD-10 - R00.0)She was unable to tolerate Atenolol. She voices that Dr. Cantu did not try anything else besides theAtenolol and she never returned to see Dr. [...] she contact Dr. Cantu if this continues. Jan,Iron deficiency anemia (ICD-10 - D50.9)She voices that she has been craving ice so she is going to call and schedule an appointment to seeDr. Castillo again. [facility] Other 06-29-2023 Evaluation note* Encounter Date Diagnosis Assessment Notes Treatment Notes Treatment Clinical Notes Nov, Acute sinusitis (ICD-10 - J01.90 ) Nov,ough (ICD-10 - R05.9) [facility] Other 05-01-2023 Evaluation note* Encounter Date Diagnosis Assessment Notes Treatment Notes Treatment Clinical Notes October, Anxiety (ICD-10 - F41.9) She does continue to use and benefit from the Xanax. She is in need of a refill today. She is doingwell on the Celexa and feels the dose is adequate. Frequent appointments needed due to addiction potential of the medication. She can call for refills on the medication but needs to be seen again in three months. Side effects/risks/benefits of medication were reviewed. An OARRS report was reviewed,no discrepancies noted. Rx was called into [facility], spoke with Chad TOWNSEND, the Xanax 0.25 MG tablets are out of stock currently so her dose was increased to 0.5 MG and she was instructed to take 1/2 tablet q8-12 hours as needed. Only 12 tablets were called in. Pt voiced understanding when notified of this change. October,Other3:17 PM - 3:23 PM [facility] Other 04-12-2023 Evaluation note* Encounter Date Diagnosis Assessment Notes Treatment Notes Treatment Clinical Notes Sep, Fever (ICD-10 - R50.9) Push fluids, rest. Tylenol if needed. Sep,cute sinusitis (ICD-10 - J01.90)Will treat with an antibiotic. Guidance is given on how to take the medication. She is encouraged to eat yogurt daily while on ATB to prevent GI upset. Rest, push fluids. Sep,ough (ICD-10 - R05.9)An OARRS report was reviewed, no discrepancies noted. Do not mix with alcohol or drive after taking. Side effects/risks/benefits of medication were reviewed. Sep,Other12:46 PM - 12:51 PM [facility] Other 01-30-2023 Evaluation note* Encounter Date Diagnosis Assessment Notes Treatment Notes Treatment Clinical Notes Jun, Anxiety (ICD-10 - F41.9) [facility] Other 01-30-2023 Evaluation note* Encounter Date Diagnosis Assessment Notes Treatment Notes Treatment Clinical Notes Jun, Tachycardia (ICD-10 - R00.0) She has not seen Dr. Cantu since last seen here. She voices that her heart rate is still high at times. 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 She is not taking the Atenolol any longer.We discussed her getting into better condition which would be beneficial for her heart, I did recommend that she do something that keeps her heart rate up for thirty minutes six days a week. She voices that she does not own any equipment but can walk on her basement stairs and enjoys exercise. She will see what she can do on her own. Jun,Iron deficiency anemia (ICD-10 - D50.9)She had an iron infusion in the fall of 2021. She was following with Dr. Castillo and has an appointmentto see him in Jul or August (2022). I did recommend that she follow up with him. We discussed that she wasn't technically anemic on the ER lab from Apr (2021) but she was microcytic. Jun,nxiety (ICD-10 - F41.9)She only uses the Xanax as needed and it works well for her when she needs it. An OARRS report was reviewed no discrepancies noted. The Celexa is working well for her and she feels the dose is adequate. Frequent appointments needed due to addiction potential of medication. I will see her back in three months. Side effects/risks/benefits of medication were reviewed. [facility] Other 12-21-2022 Evaluation note* Encounter Date Diagnosis Assessment Notes Treatment Notes Treatment Clinical Notes May, Cough (ICD-10 - R05.9) She did request cough medication today. An OARRS report reviewed, no discrepancies noted. No driving or drinking alcohol after taking this medication. Side effects/risks/benefits of medication were reviewed. May,cute sinusitis (ICD-10 - J01.90)She voices that she has tried OTC medications (Mucinex) and it has not worked. She has been sick for two weeks. No body aches. I will treat her with an antibiotic. Guidance is given on how to take the medication. She is to eat yogurt daily while on ATB to prevent GI upset. Rest, push fluids. She did request liquid medication. May,ther3:27 PM - 3:32 PM [facility] Other 11-18-2022 Miscellaneous Notes* Telephone Encounter - Tabby Steele Ma - 04/30/2022 2:25 PM EST CMP if needed. Tabby Steele Ma [facility]* Encounter Date Diagnosis Assessment Notes Treatment Notes Treatment Clinical Notes Mar, Anxiety (ICD-10 - F41.9) [facility] Other 10-31-2022 Evaluation note* Encounter Date Diagnosis [...] see her back in three months. Side effects/risks/benefits ofmedication were reviewed. Mar,Tachycardia (ICD-10 - R00.0)She still has not seen Dr. Cantu since she was last seen here. She voices that Dr. Cantu was going tokeep her on Atenolol but she was getting dizzy on the medicine so she stopped taking it and then had not been back to see Dr. Cantu. I did independently review her holter monitor results with her today. She can tell when her heart is beating fast. Mar,Iron deficiency anemia (ICD-10 - D50.9)She continues to follow with Dr. Castillo and has one more iron infusion before she will have her iron rechecked. She feels better since she has been getting the infusions. Mar,therShe voices that next on her to do list is to get her liver ultrasound done and then return to seeher VIDEO SYSTEM REPAIRER at the [facility] because she feel she has another ovarian cyst. [facility] Other 10-28-2022 Miscellaneous Notes* Allied Health - [...] PAGER/CONTACT #: documented in this encounterC[facility]10[facility] Miscellaneous Notes* Telephone Encounter - MARY Narvaez - 03/15/2022 12:04 PM EDT Patient appears on the First Time Treatment List for a non-oncology treatment. No psychosocial assessment is indicated. JANNA Narvaez documented in this encounterC[facility]09-28-2022 NoteHNO ID: [id number] Author: Madyson Ni APRN.PIOTR Service: ? 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 Recent laboratories from [facility] October 04, 2020 show hemoglobin of 11.6 [...] and removal ovarian cyst (more content not included)...[facility]09-28-2022 History of Present illness Narrative* Madyson Ni APRN.FAMILY AND CONSUMER EDUCATION TEACHER - 03/10/2022 2:00 PM EDT Images from the original note were not included. 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 Recent laboratories from [facility] October 04, 2020 show hemoglobin of11.6 but [...] Hyperlipidemia Father Heart Father bypass surgery, stents, [place] Madyson Ni APRN.CNP [facility] [place], [place] CC: Dr. Jennifer Duran [address] [place] [id number] I spent a total of 30 minutes on the date of the service which included preparing to see the patient, kkex-yl-bxhb patient care, completing clinical documentation, obtaining and/or reviewing separately obtained history, performing a medically appropriate examination, counseling and educating the pat ient/family/caregiver, ordering medications, tests, or procedures, independently interpreting results (not separately reported), and communicating results to the patient/family/caregiver. documented in this encounterC[facility]09-08-2022 Miscellaneous Notes* Telephone Encounter - Meaghan Ordonez - 02/18/2022 3:14 PM EDT Patient has an appt on 09/13. Would you like labs? documented in this encounterC[facility]09-06-2022 Evaluation note* Encounter Date Diagnosis Assessment Notes Treatment Notes Treatment Clinical Notes Feb, Iron deficiency anemia (ICD-10 - D50.9) Feb,Elevated liver enzymes (ICD-10 - R74.8) [facility] Other 07-28-2022 Evaluation note* Encounter Date Diagnosis Assessment Notes Treatment Notes Treatment Clinical Notes Dec, Anxiety (ICD-10 - F41.9) [facility] Other 06-24-2022 Hospital Discharge instructions Patient Education [...] develop this condition: Playing sports that include ilgd-po-wada contact with others. Having a skin condition [...] Follow these instructions at home: Medicines Take nusp-qya-znbwilr and prescription medicines only as told by [...] 06/20/2015 Document Revised: 07/10/2019 Document Reviewed: 06/21/2017 [employer] Patient Education 2020 [employer]cut. 12/04/2021 13:59:11 Sinusitis, Adult Sinusitis, Adult Sinusitis [...] at home: Medicines Take, use, or apply ccdm-ndm-nfaspcm and prescription medicines only as told by [...] and water are not available, use hand hydrographer. Do not smoke. Avoid being around people [...] 05/30/2006 Document Revised: 10/30/2018 Document Reviewed: 10/30/2018 [employer] Patient Education 2020 P[employer]cut. 12/04/2021 13:59:10 BMI for Adults BMI for [...] height. This can be done either in [place] ([place] or metric measurements. Note that charts are available to help you find your BMI quickly and easily without having to do these calculations yourself. To calculate your BMI in [place] ([place] measurements, your health care provider will: [...] medical problems. BMI can be measured using [place] measurements or metric measurements. To interpret your [...] 02/08/2005 Document Revised: 05/12/2018 Document Reviewed: 04/12/2018 [employer]DNS Patient Education 2020 [employer]cut. [facility] 05-06-2022 Evaluation note* Encounter Date Diagnosis Assessment Notes Treatment Notes Treatment Clinical Notes October, Acute sinusitis (ICD-10 - J01.90 ) She voices that she thought she had allergies but then a few days later she was full blown sick . She is bringing out green nasal drainage. I will treat her with Augmentin but she did request liquidform due to the size of the tablets. Guidance is given on how to take the medication. She may have loose stools but if she develops severe diarrhea then she needs to let me know right away. Eat yogurt daily while on ATB to prevent GI upset. Rest, push fluids. October,ough (ICD-10 - R05.9)She saw Dr. Donald and he added Symbicort which did help her symptoms a little bit, she continued tohave a lingering cough but she felt that it wasn't as bad. She has an appointment with him next week. She would like a refill on Hycodan. Side effects/risks/benefits of medication were reviewed. Do not drink alcohol or drive after taking. Do not take Xanax within 12 hours of taking the Hycodan. October,nxiety (ICD-10 - F41.9)An OARRS report was reviewed no discrepancies noted. Side effects/risks/benefits of medication werereviewed. Frequent appointments needed due to addiction potential of medication. She does continue to use and benefit from the Xanax. I will see her back in three months. October,ther8:28 AM - 8:35 AM [facility] Other 03-01-2022 Evaluation note* Encounter Date Diagnosis Assessment Notes Treatment Notes Treatment Clinical Notes Aug, Cough (ICD-10 - R05) [facility] Other 02-21-2022 Evaluation note* Encounter Date Diagnosis [...] report was reviewed no discrepancies noted. Side effects/risks/benefits of medication were reviewed. Jul,ther5:43 PM - 5:48 PM [facility] Other 12-06-2021 Evaluation note* Encounter Date Diagnosis Assessment Notes Treatment Notes Treatment Clinical Notes May, COVID-19 (ICD-10 - U07.1) She tested positive for COVID-19 on 05-15-21. She voices that her symptoms started on 05-11-21. We discussed that she could get the monoclonal antibodies. She would like to have these so an order willbe sent to the infusion center. She does not feel well and voices that her cough makes it difficultto rest. Will treat with cough medication to allow her to rest. She is off work right now and voices that her employer will handle her [place] paperwork. If she needs a note she is to call. She is encouraged to rest, push fluids. She can begin taking a baby ASA daily with food while she is sick. May,ough (ICD-10 - R05.9) An OARRS report was reviewed, no discrepancies noted. She would like to have above cough medicationon hand to use for her cough. Side effects/risks/benefits of medication were reviewed. May,Nausea & vomiting (ICD-10 - R11.2) May,Other4:25 PM - 4:38 PM [facility] Other 11-09-2021 Evaluation note* Encounter Date Diagnosis Assessment Notes Treatment Notes Treatment Clinical Notes Apr, Wellness examination (ICD-10 - Z 00.00) She is here today for a wellness exam. After evaluation I did sign her physical exam form. Apr,Iron deficiency anemia (ICD-10 - D50.9) She is [...] low HGB and Iron infusions. She admits toheavy periods but voices that this is nothing new or out of the ordinary for her. Apr,nxiety (ICD-10 - F41.9) An OARRS report was reviewed, no discrepancies noted. She does continue with above medication and benefits from the Xanax as needed. She needs to be seen every three months for the Xanax. Side effects/risks/benefits of medication were reviewed. Apr,Hyperlipidemia (ICD-10 - E78.5) Discussed cholesterol results with [...] her readings on her own. She admits shewas eating out alot and is doing alot more home cooked meals. Apr,Tachycardia (ICD-10 - R00.0) She does continue to follow with Dr. Cantu. Apr,Weight gain (ICD-10 - R63.5) Her TSH is normal at 1.04. [facility] Other 10-07-2019 History general Narrative - Reported* Type Description Date Medical History endometriosis 2012 Medical HistoryEchocardiogram 03-19-19 [facility] [place], ejection fraction 60-65% Medical HistoryMRI Brain 03-21-19 [facility] [place], NormalMedical HistoryanxietyMedical Historypneumonia 06/2019Surgical HistoryCholecystectomySurgical Historygal bladder [id number] Historyablation - endometriosis removed off ovaries Dr [id number] Historyovarian [id number] HistoryMRI [id number] Surgical Historyovarian cyst /2019Hospitalization Historysee above [facility] Other Consult note Author Jameel Hatfield [facility] April 28, 2022 8:22amNote Date/TimeNovember 2021 8:22[place] [address] 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 She has had multiple laparoscopies, the mostrecent one was in 2019. She has been told that she has a mess of endometriosis in her pelvis. She has previously tried control pills but was unable to tolerate the side effects. She is not currently on any control and she has a regular monthly period. [facility]-19?: Yes Medical [...] Last Admin: 04/28/22 04:43 Dose: 10 ml PRODUCT DEVELOPMENT CARPENTER - Exam Physical Exam Vital signs: Temp 97.7 F 04/28/22 04:18 Pulse 95 H 04/28/22 04:18 Resp 16 04/28/22 04:18 BP 136/95 04/28/22 04:18 Pulse Ox 100 04/28/22 04:18 O2 Del Method Room Air 04/28/22 04:18 Constitutional Constitutional: no acute distress Routine Respiratory Exam Respiratory: Absent respiratory distress Routine Abdominal Exam Abdominal: Present soft, normoactive bowel sounds and tenderness; Absent reboundor guarding PRODUCT DEVELOPMENT CARPENTER - Results Laboratory Results - Last 48 hrs. 04/28/22 02:00: Urine Color Yellow, Urine Appearance Cloudy A, Urine pH 6.5, Ur Specific [place] 1.005, Urine Protein Negative, Urine Glucose (UA) [...] Creatinine Clear 132.36, Sodium 137, Potassium 3.7, Wpavmrwz441, Carbon Uvcjgem27.1 L, Anion Gap 14.6, BUN 5 L, [...] % (Auto) 64.6, Lymph % (Auto) 28.9, [place] % (Auto) 4.5, Eos % (Auto) 1.0, Baso % (Auto) 1.0, Neut # (Auto) 5.1, Lymph # (Auto) 2.3, [place] # (Auto) 0.4, Eos # (Auto) 0.1, Baso # (Auto) 0.1, Nucleated RBC % (auto) 0.0, Platelet Estimate Normal, Plt Morphology Comment Normal, RBC Morphology N/A, Polychromasia Slight, HypochromasiaSlight, Poikilocytosis Moderate, Anisocytosis Marked, Tear Drop Cells Slight, Ovalocytes Moderate PRODUCT DEVELOPMENT CARPENTER - A/P (1) Intractable abdominal pain: Code(s): R10.9 - Unspecified abdominal pain Status: Acute (2) Cyst of left ovary: Plan: I have reviewed the ultrasound myself. She is 2 weeks from her LMP, the cyst isclear and simple anddoes not have the appearance of an endometrioma nor hemorrhagic cyst. My suspicion is this is simply a functional cyst of the ovarypossibly an unruptured follicle. She does not have an acute abdomen.My plan is for oral pain management and anticipate resolution of the cyst and her pain. I anticipate should be able to be discharged later today. And I suggested she follow-up with her geology scientist at the [facility]. Code(s): N83.202 - Unspecified ovarian cyst, left side Status: Acute Documented By: JAMEEL HATFIELD MD 04/28/22816 Signed By: <Electronically signed by MD JAMEEL HATFIELD> 04/28/22821 [facility] Work Phone: Evaluation + Plan note No data available for this section [facility] Evaluation noteNo assessment information available [facility] Work Phone: Evaluation noteNo InformationNort [employer] Online Other Evaluation note* Diagnosis Iron deficiency anemia due to chronic blood loss- Primary Iron deficiency anemia secondary to blood loss (chronic) [facility] 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 [facility] Diagnosis 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 Cyst of left ovary Other and unspecified ovarian cyst [facility] Diagnosis 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 Cyst of left ovary Other and unspecified ovarian cyst [facility] Diagnosis Iron deficiency anemia due to chronic blood loss- Primary Iron deficiency anemia secondary to blood loss (chronic) [facility] Diagnosis Onset Date Resolution Status Abdominal pain acuteOvarian cystacute [facility] Work Phone: Evaluation note* Diagnosis Onset Date Resolution Status Abdominal pain acuteEndometriosisacuteOvarian cystacute [facility] Work Phone: Evaluation note* Author Jennifer Duran [facility] HospitalAuthoredFebruary 2023 12:18pmThe above note written by ___Polly Collado____ acting as human recorder, note dictated by _Wilber .I performed the above HPI, ROS, and Examination. I formulated and dictated the treatment plan and was present for entire encounter. Jennifer Duran D.O. [facility] Work Phone: Evaluation note* Diagnosis Toothache- Primary Unspecified disorder of the teeth and supporting structures documented in this encounter [facility] note* Diagnosis Onset Date Resolution Status Anxiety [facility] Work Phone: Evaluation note* Diagnosis Cyst of left ovary- Primary Other and unspecified ovarian cyst documented in this encounter [facility] note* Diagnosis Lower abdominal pain Abdominal pain, other specified site [facility] Diagnosis Pelvic pain- Primary Unspecified symptom associated with female genital organs documented in this encounter [facility] note* Diagnosis RLQ abdominal pain- Primary Abdominal pain, right lower quadrant Pelvic joint pain, right [facility] Diagnosis Abdominal pain, right lower quadrant- Primary documented in this encounter [facility] note* Diagnosis Generalized abdominal pain- Primary Abdominal pain, generalized documented in this encounter [facility] note* Diagnosis Pelvic and perineal pain- Primary Unspecified symptom associated with female genital organs Endometriosis Endometriosis, site unspecified Ovarian remnant syndrome Other noninflammatory disorder of ovary, fallopian tube, and broad ligament [facility]* Diagnosis Chronic pelvic pain in female- Primary Unspecified symptom associated with female genital organs Right lower quadrant abdominal pain Abdominal pain, right lower quadrant documented in this encounter [facility] note* Diagnosis Encounter for chronic pain management- Primary documented in this encounter [facility] note* Diagnosis Onset Date Resolution Status Admit Date Acute cough acuteMarch 2024 2:02pmAcute sinusitisacuteMarch 2024 2:02pm [facility] Work Phone: Hospital Discharge instructions Additional Instructions Please arrange a follow-up appointment with your [facility] geology scientist.[facility] Work Phone: Hospital Discharge instructions Additional Instructions Take Motrin and Tylenol as needed for mild to moderate pain. Take oxycodone as prescribed for severe pain. Follow-up with Dr. Ness or Dr. Grayson in the office regarding further treatment with a GnRH antagonist[facility] Work Phone: Hospital Discharge instructions Additional Instructions Take Ursa as needed for severe pain, do not drink, drive, operate heavy machinery while taking Continue clindamycin as previously ordered by her dentist Return to emergency room for fever or chills, or dental abscess Follow-up with dentist and oral surgeon [facility] Work Phone: Hospital Discharge instructionsAmbulatory Orders* Referral to Allergy/Immunology Time Frame: 12/07/23, Location: None [facility] Work Phone: Hospital Discharge instructions* Attachments The following attachments cannot be sent through Care Everywhere. * Pelvic Pain (Senegalese) [facility] Attachments The following attachments cannot be sent through Care Everywhere. * Endometriosis (Senegalese) * Pelvic Pain (Senegalese) [facility]* Attachments The following attachments cannot be sent through Care Everywhere. * Abdominal Pain (Senegalese) documented in this [facility]Bon [facility]ructionsNot on file documented in this encounterProDec[facility] SystemInstructionsNot on file documented in this encounterL[facility] SystemInstructionsNot on file documented in this encounterLima [facility] Hospital SystemInstructionsNot on file documented in this encounterProDecatur [facility] Health SystemInstructionsNot on file documented in this encounterLima Memorial Hospital SystemInstructionsNot on file documented in this encounterLima Memorial Hospital SystemProgress note No data available for this section [facility] Reason for referral (narrative)* Consultation (Routine) - New RequestSpecialtyDiagnoses / ProceduresReferred By ContactReferred To ContactMultispecialty Diagnoses RLQ abdominal pain Pelvic joint pain, right Pay, Davi Lacy, DO [address] [place] [address] Referral IDStatusReasonStart DateExpiration DateVisits RequestedVisits [id number] Request/ * Consultation (Routine) - New RequestSpecialtyDiagnoses / ProceduresReferred By ContactReferred To ContactOB/PRODUCT DEVELOPMENT CARPENTER Diagnoses RLQ abdominal pain Pelvic joint pain, right Pay, Davi Lacy, DO [address] [place] [address] Isabell Hodges, DO [address] [place] [address] Referral IDStatusReasonStart DateExpiration DateVisits RequestedVisits [id number] Request/ [facility] Summary Purpose Family History No Family History Records Found Relationship Condition Age at Onset Recorded Date/T romero father Heart disease Unknown grandparentMalignant neoplasm of breastUnknown Relationship Condition Age at Onset Recorded Date/T romero father Heart disease Unknown grandparentMalignant neoplasm of breastUnknownDiabetes mellitusUnknown grandparentDeceasedUnknownMalignant neoplasmUnknowngrandparentMyocardial infarctionUnknownDeceasedUnknownMalignant neoplasm of breastUnknowngrandparent Malignant neoplasmUnknownNot SpecifiedHypertensionUnknown Relationship Condition Age at Onset Recorded Date/T romero father Heart disease Unknown grandparentMalignant neoplasm of breastUnknownDiabetes mellitusUnknown grandparentDeceasedUnknownMalignant neoplasmUnknowngrandparentMyocardial infarctionUnknownDeceasedUnknownMalignant neoplasm of breastUnknowngrandparent Malignant neoplasmUnknownmotherHypertensionUnknown Advance Directives No Advanced Directives Records Found Advance Directive Response Recorded Date/ Time Advance Directives No July 15, 2018 1:24pm Advance Directive Response Recorded Date/ Time Advance Directives No July 15, 2018 12:24pm Advance Directive Response Recorded Date/ Time Advance Directives No July 19, 2023 12:58pm Date ActivatedDate XnupjvrjyhiNvtrkkpw96/29/2024 11:25 AM06/10/2024 4:46 PM Chief Complaint and Reason for Visit Chief Complaint See order abd pain Chief Complaint See order Chief Complaint abd pain Chief Complaint abd pain IllReason for VisitAbdominal pain Ovarian cyst Chief Complaint abd pain flu Vaccine Ill stomach painReason for VisitAbdominal pain Endometriosis Ovarian cyst Chief Complaint abd pain flu Vaccine Ill stomach pain abd painReason for VisitAbdominal pain Endometriosis Ovarian cyst Chief Complaint abd pain telephone/sickReason for VisitAcute cough Acute sinusitis Fever Chief Complaint telephone/sick telephone/med refillReason for VisitAcute cough Acute sinusitis Fever Anxiety Cough Sinusitis Chief Complaint telephone/med refill tooth painReason for VisitAnxiety Cough Sinusitis Chief Complaint telephone/med refill tooth pain J32.9 R05.9Reason for VisitAnxiety Cough Sinusitis Chief Complaint tooth pain J32.9 R05.9 med refillReason for VisitAnxiety Tachycardia Chief Complaint med refill discuss sleepReason for VisitAnxiety Tachycardia Anxiety Endometriosis Insomnia Tachycardia Weight gain Chief Complaint Admit Date telephone/congestion/ear pain/sore throa t September 03, 2024 2:02pm Reason for Visit Admit Date Acute cough September 03, 2024 2:0 2pm Acute sinusitis September 03, 2024 2:0 2pm Reason for Referral SpecialtyDiagnoses / ProceduresReferred By ContactReferred To Contact Procedures ECG Jennifer Moore MD [address] [place], [place] [id number] Referral IDStatusReasonStart DateExpiration DateVisits RequestedVisits [id number] Request Reason appt pt is brent rosenbaum to see whomever can see her first pt needs consult to discuss possible injection for right sided bursitis Diagnosis 1 Greater trochanteric bursitis of right hip (M70.61) Referral Organization [facility] Referring Provider First Name Jennifer Referring Provider Last Name Wilber Referring Provider Specialty Family Prac kasi Referred Organization [facility] Referred Provider Chad Luna II Referred Address [address] [facility] [place],[address] Referred Provider Specialty Orthopedic S urgery Referral Priority Routine General Notes Angelita Trevino 01/12/2023 03:51:47 PM > referral sent p2p. pt understands that she will be contacted to schedule this appt. Reason appt consult for e zia and treatment of continued cough since covid infection Diagnosis 1 Cough (R05) Referral Organization [facility] [place] Referring Provider First Name Jennifer Referring Provider [...] to schedule this appt. Medications Administered Section Medication OrderMAR ActionAction DateDoseRateSite iron sucrose 300 mg in NaCl 0.9% 250 mL (VENOFER) 300 mg, INTRAVENOUS, at 166.67 mL/hr, Administer over 90 Minutes, ONCE, 1 dose, On Tue03/26/22 at 1430, Please conduct a 30 minute post dose observation. New Bag/Syringe/Vnshrt4203/26/2022 2:10 PM [id number] mg166.67 mL/hrMedication Order MAR ActionAction DateDoseRateSite iron sucrose 300 mg in NaCl 0.9% 250 mL (VENOFER) 300 mg, INTRAVENOUS, at 166.67 mL/hr, Administer over 90 Minutes, ONCE, 1 dose, On Tue04/09/22 at 1400, Please conduct a 30 minute post dose observation. New Bag/Syringe/Gnbopv7904/09/2022 1:46 PM [id number] mg166.67 mL/hr Additional Source Comments INFORMATION SOURCE (unrecogn ized section and content) DATE CREATED AUTHOR 08/08/2020 [facility] DATE CREATED AUTHOR AUTHOR'S ORGANIZ ATION 05/03/2022 [facility] DATE CREATED AUTHOR AUTHOR'S ORGANIZ ATION 10/19/2022 [facility] DATE CREATED AUTHOR AUTHOR'S ORGANIZ ATION 06/23/2023 [facility] DATE CREATED AUTHOR AUTHOR'S ORGANIZ ATION 09/06/2023 [facility] DATE CREATED AUTHOR AUTHOR'S ORGANIZ ATION 10/21/2023 [facility] DATE CREATED AUTHOR AUTHOR'S ORGANIZ ATION 11/27/2023 [facility] DATE CREATED AUTHOR AUTHOR'S ORGANIZ ATION 03/30/2024 [facility] DATE CREATED AUTHOR AUTHOR'S ORGANIZ ATION 06/11/2024 [facility] DATE CREATED AUTHOR AUTHOR'S ORGANIZ ATION 06/28/2024 [facility] DATE CREATED AUTHOR AUTHOR'S ORGANIZ ATION 07/01/2024 [facility] DATE CREATED AUTHOR AUTHOR'S ORGANIZ ATION 07/14/2024 [facility] DATE CREATED AUTHOR AUTHOR'S ORGANIZ ATION 07/17/2024 [facility] DATE CREATED AUTHOR AUTHOR'S ORGANIZ ATION 07/30/2024 [facility] DATE CREATED AUTHOR AUTHOR'S ORGANIZ ATION 08/03/2024 [facility] DATE CREATED AUTHOR AUTHOR'S ORGANIZ ATION 08/04/2024 [facility] DATE CREATED AUTHOR AUTHOR'S ORGANIZ ATION 08/12/2024 [facility] DATE CREATED AUTHOR AUTHOR'S ORGANIZ ATION 08/15/2024 [facility] DATE CREATED AUTHOR AUTHOR'S ORGANIZ ATION 12/08/[address] [facility] DATE CREATED AUTHOR AUTHOR'S ORGANIZ ATION 01/17/2025 [facility] DATE CREATED AUTHOR AUTHOR'S ORGANIZ ATION 04/08/2025 [facility] DATE CREATED AUTHOR AUTHOR'S ORGANIZ ATION 04/10/2025 [facility] Care Teams (unrecognized sec tion and content) Team Status: Inactive Member Role Status Dates Jennifer Duran DO Primary Care Provider, Attending Pro vider Active Team Status: Active Member Role Status Dates Jennifer Duran DO Primary Care Provider Active Team Status: Inactive Member Role Status Dates Jennifer Duran DO Primary Care Provider Active Augustus Santiago DOAttending ProviderActive Team Status: Inactive Member Role Status Dates Jennifer Duran DO Primary Care Provider Active Amaury Barlow DOEmermethodist behavioral hospital ProviderActiveTeam MemberRelationshipSpecialtyStart DateEnd Date Jennifer Duran, DO [address] [place] [address] [facility] - General11/27/07 Jennifer Duran, DO [address] [place] [address] ReferringFamily Dfxuqevm54/22/19 Avinash Velásquez MD [address] [place] [address] ReferringOB/GYN11/30/21Team MemberRelationshipSpecialtyStart DateEnd Date Jennifer Duran, DO [address] [place] [address] [facility] - [facility]11/27/07 Jennifer Duran, DO [address] [place] [address] ReferringFawestwood lodge hospital Xfxpevzx81/22/19 Avinash Velásquez MD [address] [place] [address] ReferringOB/GYN11/30/21Team MemberRelationshipSpecialtyStart DateEnd Date Jennifer Duran, DO [address] [place] [address] [facility]11/27/07 Jennifer Duran, DO [address] [place] [address] ReferringFami Hdrqcgek10/22/19 Avinash Velásquez MD [address] [place] [address] ReferringOB/GYN11/30/21Team MemberRelationshipSpecialtyStart DateEnd Date Jennifer Duran, DO [address] [place] [address] [facility]11/27/07 Jennifer Duran, DO [address] [place] [address] ReferringFamily Inuflygn54/22/19 Avinash Velásquez MD [address] [place] [address] ReferringOB/GYN11/30/21Team MemberRelationshipSpecialtyStart DateEnd Date Jennifer Duran, DO [address] [place] [address] [facility]11/27/07 Jennifer Duran, DO [address] [place] [address] ReferringFamily Hfwlwvnp77/22/19 Avinash Velásquez MD [address] [place] [address] ReferringOB/GYN11/30/21Team MemberRelationshipSpecialtyStart DateEnd Date Jennifer Duran, DO [address] [place] [address] [facility]11/27/07 Jennifer Duran, DO [address] [place] [address] ReferringFamily Fudeslsz36/22/19 Avinash Velásquez MD [address] [place] [address] ReferringOB/GYN11/30/21 Team Status: Active Member Role Status Dates Jennifer Duran , DO Primary Care Provider Active Yevgeniy Cabrera Jr, MDEmerradha ProviderActiveRichard Visci , DOAdmit Provider, Attending ProviderActiveTeam MemberRelationshipSpecialtyStart DateEnd Jennifer Warner, DO [address] [place] [address] PCP - General11/27/07 Jennifer Duran, DO [address] [place] [address] [facility]04/03/19 Avinash Velásquez MD [address] [place] [id number] ReferringOB/GYN11/30/21 Team Status: Inactive Member Role Status Austin Duran , Primary Care Provider Active Elier Jackson DOEmergency ProviderActive Team Status: Active Member Role Status Dates Sarah Childress , DO Emergency Provider Active Jennifer Duran DOPrimary Care ProviderActiveRuta Semaskiene , MDAdmit Provider, Attending ProviderActive Team Status: Inactive Member Role Status Dates Sarah Childress , DO Emergency Provider Active Jennifer Duran , DOPrimary Care ProviderActiveRuta Semaskiene , MDAdmit Provider ActiveRichsivakumar Visci , DOOther ProviderActiveObaniko M Kyleomar , MDAttending ProviderActive Team Status: Inactive Member Role Status Austin Duran , Primary Care Provider Active Jaime Aleman DO CHCAttending ProviderActive Team Status: Active Member Role Status Austin Duran , Primary Care Provider Active Sarah Childress , Emergenlizz ProviderActive Team Status: Inactive Member Role Status Austin Childress , Emergency Provider Active Jennifer Duran DOPrimary Care ProviderActiveRuta Semaskiene , MDAdmit Provider ActiveObaniko M Daromar , MDAttending ProviderActiveRichard Visci , DOOther ProviderActive Team Status: Inactive Member Role Status Austin Duran , Primary Care Provider Active Shahzad Hagan ProviderActive Team Status: Active Member Role Status Dates PHYSICIAN NO FAMILY Primary Care Provider Active Team Status: Inactive Member Role Status Dates PHYSICIAN NO FAMILY Primary Care Provider Active Shahzad Moon ProviderActive Team Status: Inactive Member Role Status Dates PHYSICIAN NO FAMILY Primary Care Provider Active Start: April 30, 2023 End: April 30Shahzad Burr ProviderActiveStart: April 30, 2023 End: April 30, 2023 Team Status: Inactive Member Role Status Austin Duran DO Primary Care Provide r, Attending Provider Active Start: July 28, 2023 End: July 28, 2023 Team Status: Inactive Member Role Status Austin Duran DO Primary Care Provide r, Attending Provider Active Start: October 18, 2023 End: October 18, 2023Team MemberRelationshipSpecialtyStart DateEnd Date Jennifer Duran DO [address] [place] [address] PCP - [facility]09/14/23 Team Status: Inactive Member Role Status Austin Duran DO Primary Care Provider Active S tart: November 08, 2023 End: November 07Zechariah Michel ProviderActiveStart: November 08, 2023 End: November 08, 2023 [...] Start: March 23, 2024 End: March 23, 2024Team MemberRelationshipSpecialtyStart DateEnd Date No Pcp, [place] [address] PCP - [facility]06/05/24Team MemberRelationshipSpecialtyStart Date End Date [place], [place] [address] PCP [facility]06/05/24 Team Status: Inactive Member Role Status Dates Jennifer Duran DO Primary Care Provide r, Attending Provider Active Start: September 03, 2024 End: September 03, 2024Team MemberRelationshipSpecialtyStart DateEnd Date No Pcp, [place] [address] PCP - [facility]06/05/24Team MemberRelationshipSpecialtyStart Date End Date [place], [place] [address] PCP - [facility]06/05/24 Goals (unrecognized section and content) Goals may [...] FOR VISIT (unrecogniz ed section and content) ReasonCommentsLab PmtjinZbomzhMvxuupldRuzyks63 month follow upReasonComments Social Work ServicesSpecialtyDiagnoses / ProceduresReferred By ContactReferred To Contact Diagnoses Cyst of left ovary Iron deficiency anemia due to chronic blood loss Malabsorption of iron Procedures IRON SUCROSE INJECTION PER 1 MG Madyson Ni APRN.[address] [place] [address] Johny Treat Lei [address] [place] [address] Referral IDStatusReasonStart DateExpiration DateVisits RequestedVisits [id number]/28/202212/31/[id number] Therapy ReasonCommentsDental PainRight lower, has appt for root canal for mid king tylenol, toradol and tramadolCalled dentisttoday and they are out of office ReasonCommentsAbdominal PainC/o lower left abdominal pain, pain started at 4 am, took ibuprofen 800 mg, tylenol 1000 mg, Toradol 30 mg, with no relief. H/o ovarian cysts.ReasonCommentsAbdominal PainPatient states RLQ abdominal pain that started low mid abdomen with nausea since last night. Patient denies falls, trauma, and urinary symptoms. Patient states normal bowel movement yesterday and that she normally goes every other day. Patient states she was recently started on Augmentin for tooth infection. Patient states she took Ketorolac approximately 3 hours ago with no relief.ReasonCommentsAbdominal PainPt presents to ER with complaints of abd pain that began 1 week ago pt sts it is intermittent and that she has a history of stage 4 endometriosis, pt sts she took toradol at 1830 and percocet at 1400with no reliefReasonCommentsAbdominal PainPatient states continued abdominal pain since being seen in this ED for same multiple times over the last month. Patient states pain worsened this AM. Patient states Hx of endometriosis. Patient denies falls and trauma to the abdomen. Patient denies nausea, vomiting, and diarrhea. Patient denies urinary symptoms.ReasonOnset DateCommentsabnormal CT4ReasonOnset DateComments Xshtyzvkfmd08/30/2024ReasonCommentsAbdominal PainRight lower abdominal pain that radiates to back that began last night. Denies urinary symptoms andNVD.Reason CommentsAbdominal PainRight sided lower abdominal pain ongoing for a couple of days, no vomiting or diarrhea.ReasonCommentsAbdominal PainPt. Complains of Rt. Lower abd pain that started a week ago. Pt. States this is a flare up of her o varian Remnet syndrome . Pain 8/.ReasonCommentsAbdominal PainPt here for RLQ abd pain. Pt states this is a chronic pain and taking tramadol and toradol, last dose 5p. Report ovarian remnant syndrome. [place] [facility] [place] Abdominal PainPt presents to the ER with complaints of abd pain that began 2 days agoReasonOnset DateCommentsAbdominal Pain09/04/20245430Hxmssc38/25/2025Reason Onset QehiYeagxcyfXkjgemssjnw61/02/2025ReasonOnset DateCommentsright sided abdominal pain10/01/2024 Source Comments (unrecognize d section and content) In the event this informatio n is protected by the Federal Confidentiality of Alcohol and Drug Abuse Patient Records regulations: The Federal rules restrict any use of the information to criminally investigate or prosecute any alcohol or drug abuse patient.[facility] HospitalIn the event this information is protected by the Federal Confidentiality of Alcohol and Drug Abuse Patient Records regulations: The Federal rules restrict any use of the information to criminally investigate or prosecute any alcohol or drug abuse patient.[facility] HospitalIn the event this information is protected by the Federal Confidentiality of Alcohol and Drug Abuse Patient Records regulations: The Federal rules restrict any use of the information to criminally investigate or prosecute any alcohol or drug abuse patient.[facility] HospitalIn the event this information is protected by the Federal Confidentiality of Alcohol and Drug Abuse Patient Records regulations: The Federal rules restrict any use of the information to criminally investigate or prosecute any alcohol or drug abuse patient.[facility] HospitalIn the event this information is protected by the Federal Confidentiality of Alcohol and Drug Abuse Patient Records regulations: The Federal rules restrict any use of the information to criminally investigate or prosecute any alcohol or drug abuse patient.[facility] HospitalIn the event this information is protected by the Federal Confidentiality of Alcohol and Drug Abuse Patient Records regulations: The Federal rules restrict any use of the information to criminally investigate or prosecute any alcohol or drug abuse patient.[facility] HospitalIn the event this information is protected by the Federal Confidentiality of Alcohol and Drug Abuse Patient Records regulations: The Federal rules restrict any use of the information to criminally investigate or prosecute any alcohol or drug abuse patient.[facility] Ordered Prescriptions (unrec ognized section and content) PrescriptionSigDispensedRefillsStart DateEnd Date clindamycin (CLEOCIN) 300 MG capsule Take 1 capsule by mouth 4 times daily for 10 days 40 capsule /4PrescriptionSigDispensedRefillsStart DateEnd Date ondansetron (ZOFRAN-ODT) [address] 1 tablet under the tongue every 8 hours as needed for Nausea or Vomiting 10 tablet 01/22/2024 traMADol (ULTRAM) 50 MG tablet Indications:Cyst of left ovaryTake 1 tablet by mouth every 6 hours as needed for Pain for up to 3 days. Intended supply: 3 days. Take lowest dose possible to manage pain Max Daily Amount: 200 mg 12 tablet /rescriptionSigDispensedRefillsStart DateEnd Date cyclobenzaprine (FLEXERIL) 10 MG tablet Take 1 tablet by mouth 3 times daily as needed for Muscle spasms 21 tablet /02/2025 Scheduled Active and Recently Administ ered Medications (unrecognized section and content) Medication Order/ traMADol (ULTRAM) tablet 50 mg (COMPLETED) 50 mg, Oral, ONCE, 1 dose, On 01/22/24 at 1230 * 1230 (Given - Provider: Sylvia Johnson RN) Medication Order// HYDROmorphone (DILAUDID) injection 0.5 mg (COMPLETED) 0.5 mg, Intravenous, ONCE, 1 dose, On Obdulia 02/16/24 at 1645 * 1628 (Given - Provider: Una Levy RN) HYDROmorphone (DILAUDID) injection 1 mg (COMPLETED) 1 mg, Intravenous, ONCE, 1 dose, On Obdulia 02/16/24 at 1430 * 1421 (Given - Provider: Una Levy RN) iohexol (OMNIPAQUE) 350 MG/ML injection 75 mL (COMPLETED) 75 mL, Intravenous, ONCE, 1 dose, On Obdulia 02/16/24 at 1615, Extravasation Risk, Radiology Procedure * 1517 (Given - Radiology - Provider: Trae Jones) Ondansetron 4mg/2ml (ZOFRAN) injection 4 mg (COMPLETED) 4 mg, Intravenous, ONCE, 1 dose, On Obdulia 02/16/24 at 1430 * 1417 (Given - Provider: Una Levy RN) Sodium chloride 0.9% IV solution 500 mL (COMPLETED) 500 mL, Intravenous, ONCE, 1 dose, On Obdulia 02/16/24 at 1430 * 1416 ($$New Bag$$ - Provider: Una Levy RN) * 1541 (Stopped - Provider: Una Levy RN) Sodium chloride 0.9% IV solution 75 mL (COMPLETED) 75 mL, Intravenous, ONCE, 1 dose, On Obdulia 02/16/24 at 1615, Radiology Procedure * 1517 ($$New Bag$$ - Provider: Trae Jones) * 1541 (Stopped - Provider: Una Levy RN) Medication Order// HYDROmorphone (DILAUDID) injection 0.5 mg (COMPLETED) 0.5 mg, Intravenous, ONCE, 1 dose, On Tue02/24/24 at 2130 * 2122 (Given - Provider: Geri Burciaga RN) HYDROmorphone (DILAUDID) injection 0.5 mg (COMPLETED) 0.5 mg, Intravenous, ONCE, 1 dose, On Tue02/24/24 at 2330 * 2315 (Given - Provider: Geri Burciaga, FER) Ondansetron 4mg/2ml (ZOFRAN) injection 4 mg (COMPLETED) 4 mg, Intravenous, ONCE, 1 dose, On Tue02/24/24 at 2100 * 2122 (Given - Provider: Geri Burciaga, FER) Medication Order// hydroCODone-acetaminophen (NORCO) 5-325 MG per tablet 1 tablet (COMPLETED) 1 tablet, Oral, ONCE, 1 dose, On 03/03/24 at 1615 * 1632 (Given - Provider: Geri Burciaga RN) Medication Order// fentaNYL (SUBLIMAZE) injection 50 mcg (COMPLETED) 50 mcg, IntraVENous, ONCE, 1 dose, On 06/27/24 at 1400, If oral and IV narcotics ordered, use oral first and only use IV if oral is ineffective or cannot take oral. Do Not give oral and IV within 1 hour of each other unless specifically ordered. * 1357 (Given - Provider: Nimo De Los Santos RN) fentaNYL (SUBLIMAZE) injection 50 mcg (COMPLETED) 50 mcg, IntraVENous, ONCE, 1 dose, On 06/27/24 at 1500, If oral and IV narcotics ordered, use oral first and only use IV if oral is ineffective or cannot take oral. Do Not give oral and IV within 1 hour of each other unless specifically ordered. * 1454 (Given - Provider: Nimo De Los Santos RN) Medication Order// diazePAM (VALIUM) tablet 5 mg (COMPLETED) 5 mg, Oral, ONCE, 1 dose, On Obdulia 07/12/24 at 0145 * 0147 (Given - Provider: Silva Kelly, FER) hydrocodone-acetaminophen (NORCO) tablet 5-325 mg (STARTER PACK) This order is for a take home starter pack of medication. Please document Furnish to patient on the AUG. * 0147 (Furnished to Patient - Provider: Silva Kelly, FER) Medication Order///06/2024 diphenhydrAMINE (BENADRYL) injection 25 mg (COMPLETED) 25 mg, Intravenous, ONCE, 1 dose, On 07/14/24 at 1900 * 1842 (Given - Provider: Matthew Murphy, FER) HYDROmorphone (DILAUDID) injection 1 mg (COMPLETED) 1 mg, Intravenous, ONCE, 1 dose, On 07/14/24 at 1830 * 1843 (Given - Provider: Matthew Murphy, FER) Metoclopramide (REGLAN) injection 10 mg (COMPLETED) 10 mg, Intravenous, ONCE, 1 dose, On 07/14/24 at 1830 * 1843 (Given - Provider: Matthew Murphy RN) Medication Order07/27/740770// nalbuphine (NUBAIN) injection 5 mg (COMPLETED) 5 mg, IntraMUSCular, Once, 1 dose, On 07/29/24 at 1930 * 1945 (Given - Provider: Sandra Conrad RN) FOR RECORDS PERTAINING TO [...] BE BASED ON THE PRIMARY CLINICAL RECORDS. [employer] [facility]. provides no warranty or guarantee of the accuracy or completeness of information in this document.
--- NOTE | 2025-04-10 18:08 | ED.GENADUL1 ---
HPI HPI - General Adult General Chief complaint: Abdominal Pain Stated complaint: ABDOMINAL PAIN Time Seen by Provider: 04/10/25 17:34 Source: patient Mode of arrival: walk-in Limitations: no limitations History of Present Illness HPI narrative: 40-year-old female presents for abdominal pain. It is in the right lower part of her abdomen. She was seen at another hospital's emergency department yesterday and had a CAT scan. 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 Pain is severe and continuous. No trauma or fever. She has had hysterectomy and BSO. No fever or vomiting. Related Data Home Medications ?Medication ?Instructions ?Recorded ?Confirmed alprazolam 0.25 mg tablet 0.25 mg PO Q8H PRN anxiety 09/20/23 08/11/24 citalopram 20 mg tablet (Celexa) 20 mg PO DAILY 09/20/23 08/11/24 atenolol 25 mg tablet 25 mg PO Q24H 02/11/24 08/11/24 acetaminophen 500 mg tablet 500 mg PO Q6H PRN pain 07/09/24 08/11/24 gabapentin 300 mg capsule 300 mg PO TID 07/09/24 08/11/24 ibuprofen 800 mg tablet 800 mg PO Q8H PRN pain 07/09/24 08/11/24 Previous Rx's ?Medication ?Instructions ?Recorded ketorolac 10 mg tablet 10 mg PO TID PRN pain #10 tabs 10/22/23 ondansetron 4 mg disintegrating 4 mg PO DAILY PRN nausea and 06/27/24 tablet vomiting #15 tabs acetaminophen 300 mg-codeine 30 mg 1 tab PO Q6H PRN pain 3 days #10 02/18/25 tablet tabs acetaminophen 300 mg-codeine 30 mg 1 tab PO Q6H PRN pain 3 days #10 04/10/25 tablet tabs Allergies Allergy/AdvReac Type Severity Reaction Status Date / Time morphine Allergy Severe itching Verified 04/10/25 17:35 prochlorperazine (From AdvReac Mild Anxiety Verified 04/10/25 17:35 Compazine) Opioid HPI Opioid Management Most Recent Opioid Data: Last Pain Scale 8 Today, 18:26 Last ED Pain Assessment Today, 18:26 Last MAR Pain Assessment Today, 18:22 Last ORT Total Score 2 09/20/23, 05:45 Last ORT Risk Category Low Risk 09/20/23, 05:45 Review of Systems ROS Narrative A ten point review of systems is negative except as noted above. PFSH PFSH Medical History Ovarian cyst ?N83.209 - Unspecified ovarian cyst, unspecified side (ICD-10) Endometriosis ?N80.9 - Endometriosis, unspecified (ICD-10) LLQ abdominal pain ?R10.32 - Left lower quadrant pain (ICD-10) Complex cyst of left ovary ?N83.292 - Other ovarian cyst, left side (ICD-10) Toothache ?K08.89 - Other specified disorders of teeth and supporting structures (ICD-10) Surgical History History of removal of cyst ?Z98.890 - Other specified postprocedural states (ICD-10) History of cholecystectomy ?Z90.49 - Acquired absence of other specified parts of digestive tract (ICD-10) Family History Family/Other No problems noted. Father Family history of CHF (congestive heart failure) Family history of COPD (chronic obstructive pulmonary disease) Family history of diabetes mellitus Family history of hypertension Family history of myocardial infarction Mother Family history of hypertension Other Family history of cancer Social History Within the past year, how often did you have a drink containing alcohol: monthly or less Within the past year, how many standard drinks containing alcohol did you have on a typical day: 1 or 2 Within the past year, how often did you have six or more drinks on one occasion: never Total score: 0 Score interpretation: A score less than 3 is consistent with normal alcohol consumption. Smoking status: Never smoker Non-prescribed substance use: denies use Highest level of school completed/degree received: Associate degree: academic program Are you now , , , , never or living with a partner: In a typical week, how many times do you talk on the telephone with family, friends, or neighbors: 3 or more times per week How often do you get together with friends or relatives: 3 or more times per week Little interest or pleasure in doing things: not at all Feeling down, depressed, or hopeless: not at all Feel stressed/tense/nervous/anxious/difficulty sleeping: not at all Do you think of yourself as: straight/heterosexual Gender Identity: female Exam Narrative Exam Narrative: Nurses note and vital signs reviewed General:The patient appears uncomfortable Skin:Warm, dry, no pallor noted.There is no rash noted. Head:Normocephalic, atraumatic Eye: Normal conjunctiva, no drainage Ears, Nose, Mouth, and Throat: oral mucosa is moist. Nares patent. Cardiovascular:Regular Rate and Rhythm Respiratory:Patient is in no distress, no accessory muscle use, lungs are clear to auscultation, no wheezing, rales or rhonchi Back:non-tender GI: Redness in the right lower abdomen Musculoskeletal: The patient has no evidence of calf tenderness, no pitting edema, symmetrical pulses noted bilaterally Neurological:A&O, normal speech Psychiatric:Cooperative Constitutional Vital Signs, click to edit/add: Last Vital Signs Temp 98.0 F 04/10/25 17:35 Pulse 129 H 04/10/25 17:35 Resp 20 04/10/25 17:35 BP 168/100 H 04/10/25 17:35 Pulse Ox 99 04/10/25 17:35 O2 Del Method Room Air 04/10/25 17:35 Course Vital Signs Vital signs: Vital Signs Temperature 98.0 F 04/10/25 17:35 Pulse Rate 129 H 04/10/25 17:35 Respiratory Rate 20 04/10/25 17:35 Blood Pressure 168/100 H 04/10/25 17:35 Pulse Oximetry 99 04/10/25 17:35 Oxygen Delivery Method Room Air 04/10/25 17:35 Temperature 98.0 F 04/10/25 17:35 Pulse Rate 129 H 04/10/25 17:35 Respiratory Rate 20 04/10/25 17:35 Blood Pressure 168/100 H 04/10/25 17:35 Pulse Oximetry 99 04/10/25 17:35 Oxygen Delivery Method Room Air 04/10/25 17:35 Medical Decision Making MDM Narrative Medical decision making narrative: CAT scan from yesterday was reviewed and showed no acute findings. Today's WBC is normal. She was given a prescription for 10 Tylenol 3 tablets and advised that future pain medications would need to come from pain management or her family doctor or bacteriology professor. Treatment diagnosis and follow-up were discussed with the patient. Differential Diagnosis Differential Diagnosis: Abdominal pain, chronic abdominal pain Lab Data Lab results reviewed: Yes I reviewed the patient's lab results Labs: Lab Results 04/10/25 Range/Units 18:15 WBC 8.9 (4.0-11.0) 10^3/uL RBC 4.17 L (4.20-5.40) 10^6/uL Hgb 10.8 L (12.0-16.0) g/dL Hct 34.3 L (36.0-48.0) % MCV 82.3 (81.0-99.0) fL MCH 25.9 L (26.7-34.0) pg MCHC 31.5 (29.9-35.2) g/dL RDW 18.7 H (11.0-15.0) % Plt Count 406 (150-450) 10^3/uL MPV 9.5 (9.5-13.5) fL Neut % (Auto) 52.2 (43.0-75.0) % Lymph % (Auto) 39.5 (20.5-60.0) % [place] % (Auto) 7.1 (1.7-12.0) % Eos % (Auto) 0.7 L (0.9-7.0) % Baso % (Auto) 0.3 (0.2-2.0) % Neut # (Auto) 4.7 (1.4-6.5) 10^3/uL Lymph # (Auto) 3.5 (1.2-3.8) 10^3/uL [place] # (Auto) 0.6 (0.3-0.8) 10^3/uL Eos # (Auto) 0.1 (0.0-0.7) 10^3/uL Baso # (Auto) 0.0 (0.0-0.1) 10^3/uL Abs Immat Gran (auto) 0.02 (0.00-0.03) 10^3/uL Imm/Tot Granulo (auto) 0.2 (0.0-0.5) % Discharge Plan Discharge Chief Complaint: Abdominal Pain Clinical Impression: Abdominal pain Patient Disposition: Home, Self-Care Time of Disposition Decision: 18:47 Condition: Good Mode of Transportation: Private Vehicle Prescriptions / Home Meds: New acetaminophen-codeine 300-30 mg tablet 1 tab PO Q6H PRN (Reason: pain) 3 Days Qty: 10 0RF No Action ketorolac 10 mg tablet 10 mg PO TID PRN (Reason: pain) Qty: 10 0RF ondansetron 4 mg tablet,disintegrating 4 mg PO DAILY PRN (Reason: nausea and vomiting) Qty: 15 0RF ibuprofen 800 mg tablet 800 mg PO Q8H PRN (Reason: pain) acetaminophen 500 mg tablet 500 mg PO Q6H PRN (Reason: pain) gabapentin 300 mg capsule 300 mg PO TID alprazolam 0.25 mg tablet 0.25 mg PO Q8H PRN (Reason: anxiety) citalopram [Celexa] 20 mg tablet 20 mg PO DAILY atenolol 25 mg tablet 25 mg PO Q24H acetaminophen-codeine 300-30 mg tablet 1 tab PO Q6H PRN (Reason: pain) 3 Days Qty: 10 0RF Print Language: Citizen Of [place] Instructions: Abdominal Pain (ED) Additional Instructions: See your bacteriology professor at your appointment the day after tomorrow. Your pain medications would need to come from him or pain management or your family doctor. Referrals: Physician,Non-Staff, MD [Primary Care Provider] - 1 week
[2025-04-10] MEDS: KETOROLAC TROMETHAMINE 30 MG/ML VIAL IVP (18:22)
[2025-04-10 18:37] LABS: Hematocrit 34.3 % (36.0-48.0); Hemoglobin 10.8 g/dL (12.0-16.0); Immature Granulocytes Abs Auto 0.02 10^3/uL (0.00-0.03); Immature Granulocytes Pct Auto 0.2 % (0.0-0.5); Lymphocytes Absolute Auto 3.5 10^3/uL (1.2-3.8); Mean Corpuscular HGB Conc 31.5 g/dL (29.9-35.2); Mean Corpuscular Hemoglobin 25.9 pg (26.7-34.0); Mean Corpuscular Volume 82.3 fL (81.0-99.0); Platelet Count 406 10^3/uL (150-450); Red Blood Count 4.17 10^6/uL (4.20-5.40); White Blood Count 8.9 10^3/uL (4.0-11.0)
[2025-04-10 18:51] LABS: Anion Gap 12.1; Blood Urea Nitrogen 4.0 mg/dL (7.0-18.0); Calcium 9.3 mg/dL (8.5-10.1); Carbon Dioxide 25.6 mmol/L (21.0-32.0); Chloride 105 mmol/L (98-107); Estimated GFR (African America >60 (>=60 mL/min/1.73m^2); Estimated GFR (Non-African Ame >60 (>=60 mL/min/1.73m^2); Glucose 94 mg/dL (74-106); Potassium 3.7 mmol/L (3.5-5.1); Sodium 139 mmol/L (136-145)
== END 2025-04-10 19:01 | disposition home or self-care (01) ==
PROVIDERS: Emergency Provider Emergency Medicine
DX: R10.84 Generalized abdominal pain (principal); R10.31 Right lower quadrant pain; N99.83 Residual ovary syndrome
CPT/HCPCS: 36415; 80048; 85025; 96374; 99284; J1885